=== PATIENT | male | born 1945 | race Caucasian/White ===

== ENCOUNTER 2023-05-09 10:38 | Inpatient (IN) | payer MEDICARE, SELFPAY ==
[2023-05-09] VITALS (34 sets, daily range): BP systolic 109–158; BP diastolic 54–70; PULSE 62–75; RESP 16–28; TEMP 37–38.7; O2SAT 87–96; BMI 48.7
--- NOTE | 2023-05-09 10:46 | XR_ITS ---
The [address] [address] Patient Name: TAURUS GARCIA MRN: [id number] date: 1945 Sex: M Assigned Patient Location: ED.MAIN Current Patient Location: ER Accession/Order Number: [id number] Exam Date: 05/09/2023 11:15 Report Date: 05/09/2023 11:42 At the request of: RUTH BURNS Procedure: XR chest 1V EXAMINATION: XR chest 1V HISTORY: weak, cough shortness of breath COMPARISON: XR chest 10/15/2022, 03/17/2020 FINDINGS: LUNGS: Underexpanded lungs with mild bibasilar opacities. VASCULATURE: No increased pulmonary vasculature. PLEURA: No pneumothorax, effusion, or pleural thickening. CARDIAC: No cardiomegaly or cardiac silhouette abnormality. MEDIASTINUM: No visible mass or adenopathy. BONES: No fracture or visible bone lesion. OTHER: Negative. XR/XR chest 1V IMPRESSION: 1. Mild bibasilar anterior soft tissue artifact versus atelectasis versus infiltrates; similar to prior study. Electronically authenticated by: PRIYA RODRÍGUEZ Date: 05/09/2023 11:42
--- NOTE | 2023-05-09 10:46 | ECG_ITS ---
The 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
--- NOTE | 2023-05-09 10:47 | ED_ITS ---
HPI - Male Genitourinary General Chief complaint: Urogenital-Male Stated complaint: UTI SYMPTOMS Time Seen by Provider: 05/09/23 10:43 History of Present Illness HPI Narrative: 77-year-old male presents for weakness and fever. He thinks he might have a urinary tract infection, he's had one before, about a year ago. He states he can't handle his urine and he was weak. His couldn't get him up to bring him here to get checked and so they called the squad and they brought him. He's a little bit short of breath and has had a slight cough. Symptoms present for the last day or two. Related Data Home Medications Medication Instructions Recorded Confirmed apixaban 5 mg tablet (Eliquis) 5 mg PO Q12H 05/09/23 05/09/23 baclofen 10 mg tablet 10 mg PO Q8H 05/09/23 05/09/23 furosemide 20 mg tablet 20 mg PO DAILY 05/09/23 05/09/23 hydralazine 50 mg tablet 50 mg PO Q12H 05/09/23 05/09/23 lisinopril 20 mg tablet 20 mg PO DAILY 05/09/23 05/09/23 loratadine 10 mg tablet (Claritin) 10 mg PO DAILY 05/09/23 05/09/23 multivitamin 1 tab PO DAILY 05/09/23 05/09/23 nebivolol 10 mg tablet 10 mg PO DAILY 05/09/23 05/09/23 omega-3 fatty acids 1,200 mg PO BID 05/09/23 05/09/23 potassium chloride 10 mEq 10 meq PO DAILY 05/09/23 05/09/23 tablet,extended release(part/cryst) prednisone 10 mg tablet 10 mg PO DAILY 05/09/23 05/09/23 pyridostigmine bromide 60 mg tablet 60 mg PO Q6H 05/09/23 05/09/23 simvastatin 40 mg tablet 40 mg PO DAILY 05/09/23 05/09/23 triamterene 37.5 1 tab PO DAILY 05/09/23 05/09/23 mg-hydrochlorothiazide 25 mg tablet Allergies Allergy/AdvReac Type Severity Reaction Status Date / Time No Known Drug Allergies Allergy Verified 05/09/23 10:49 Review of Systems ROS Narrative A ten point review of systems is negative except as noted above. Exam Narrative Exam Narrative: Nurses note and vital signs reviewed and patient is not hypoxic. General: The patient appears in no apparent distress. Patient is resting com fortably on cart. Skin: Warm, dry, no pallor noted. There is no rash noted. Head: Normocephalic, atraumatic Eye: Normal conjunctiva, no drainage Ears, Nose, Mouth, and Throat: oral mucosa is dry. Nares patent. Cardiovascular: Regular Rate and Rhythm Respiratory: Patient is in no distress, no accessory muscle use, lungs are clear to auscultation, no wheezing, rales or rhonchi Back: non-tender GI: no tenderness to palpation, no masses appreciated. No rebound, guarding, or rigidity noted. Musculoskeletal: The patient has no evidence of calf tenderness, no pitting edema, symmetrical pulses noted bilaterally Neurological: A&O x4, normal speech Psychiatric: Cooperative Constitutional Vital Signs, click to edit/add: Last Vital Signs Pulse 71 05/09/23 10:45 Resp 05/09/23 10:45 BP 142/70 H 05/09/23 10:45 Pulse Ox 91 L 05/09/23 10:45 O2 Del Method Room Air 05/09/23 10:45 O2 Flow Rate 2 05/09/23 10:45 Course Vital Signs Vital signs: Vital Signs Pulse Rate 71 05/09/23 10:45 Respiratory Rate 05/09/23 10:45 Blood Pressure 142/70 H 05/09/23 10:45 Pulse Oximetry 91 L 05/09/23 10:45 Oxygen Delivery Method Room Air 05/09/23 10:45 Oxygen Delivery Flow Rate 2 05/09/23 10:45 Pulse Rate 71 05/09/23 10:45 Respiratory Rate 05/09/23 10:45 Blood Pressure 142/70 H 05/09/23 10:45 Pulse Oximetry 91 L 05/09/23 10:45 Oxygen Delivery Method Room Air 05/09/23 10:45 Oxygen Delivery Flow Rate 2 05/09/23 10:45 MDM - Male Genitourinary MDM Narrative Medical decision making narrative: the patient does not have a urinary tract infection but instead appears to have an infiltrate on his chest x-ray per radiologist. Blood cultures were obtained and then he was given IV antibiotic. He was also given fluids and Tylenol and his temperatures come down and he feels a lot better, not nearly as weak as he was earlier. He'll be admitted. Findings are discussed with the patient and his . I do not suspect sepsis at this point. Differential Diagnosis Differential diagnosis: Likely urinary tract infection and other (pneumonia, viral illness, Covid) Lab Data Attestation: I reviewed the patient's lab results. Imaging Data Chest x-ray: Radiologist's impression: Procedure: XR chest 1V EXAMINATION: XR chest 1V HISTORY: weak, cough shortness of breath COMPARISON: XR chest 10/15/2022, 03/17/2020 FINDINGS: LUNGS: Underexpanded lungs with mild bibasilar opacities. VASCULATURE: No increased pulmonary vasculature. PLEURA: No pneumothorax, effusion, or pleural thickening. CARDIAC: No cardiomegaly or cardiac silhouette abnormality. MEDIASTINUM: No visible mass or adenopathy. BONES: No fracture or visible bone lesion. OTHER: Negative. IMPRESSION: 1. Mild bibasilar anterior soft tissue artifact versus atelectasis versus infiltrates; similar to prior study. Electronically authenticated by: PRIYA RODRÍGUEZ Date: 05/09/2023 11:42 ECG Data Attestation: I personally reviewed and interpreted this ECG as follows: (EKG on my interpretation shows normal sinus rhythm with a rate of 70 and no acute findings.) Discharge Plan Discharge Chief Complaint: Urogenital-Male Time of Disposition Decision: 14:43 Prescriptions / Home Meds: No Action Eliquis 5 mg tablet 5 mg PO Q12H baclofen 10 mg tablet 10 mg PO Q8H hydralazine 50 mg tablet 50 mg PO Q12H triamterene-hydrochlorothiazid 37.5-25 mg tablet 1 tab PO DAILY pyridostigmine bromide 60 mg tablet 60 mg PO Q6H potassium chloride 10 mEq tablet,ER particles/crystals 10 meq PO DAILY nebivolol 10 mg tablet 10 mg PO DAILY prednisone 10 mg tablet 10 mg PO DAILY simvastatin 40 mg tablet 40 mg PO DAILY furosemide 20 mg tablet 20 mg PO DAILY lisinopril 20 mg tablet 20 mg PO DAILY omega-3 fatty acids Capsule 1,200 mg PO BID loratadine [Claritin] 10 mg tablet 10 mg PO DAILY multivitamin Tablet 1 tab PO DAILY
[2023-05-09] MEDS: 0.9 % SODIUM CHLORIDE 1,000 ML 1000 ML IV (11:00)
[2023-05-09] MEDS: ACETAMINOPHEN 325 MG TABLET 650 MG PO (11:20)
[2023-05-09 11:26] LABS: Basophils Absolute Auto 0.1 10^3/uL (0.0-0.1); Basophils Percent Auto 0.6 % (0.2-2.0); Eosinophils Absolute Auto 0.4 10^3/uL (0.0-0.7); Eosinophils Percent Auto 5.3 % (0.9-7.0); Hematocrit 42.4 % (42.0-54.0); Hemoglobin 13.6 g/dL (14.0-18.0); Immature Granulocytes Abs Auto 0.06 10^3/uL (0.00-0.03); Immature Granulocytes Pct Auto 0.7 % (0.0-0.5); Lymphocytes Absolute Auto 0.7 10^3/uL (1.2-3.8); Lymphocytes Percent Auto 8.6 % (20.5-60.0); Mean Corpuscular HGB Conc 32.1 g/dL (29.9-35.2); Mean Corpuscular Hemoglobin 28.1 pg (25.9-34.0); Mean Corpuscular Volume 87.6 fL (80.0-94.0); Mean Platelet Volume 10.6 fL (9.5-13.5); Monocytes Absolute Auto 0.8 10^3/uL (0.3-0.8); Monocytes Percent Auto 10.2 % (1.7-12.0); Neutrophils Absolute Auto 6.1 10^3/uL (1.4-6.5); Neutrophils Percent Auto 74.6 % (43.0-75.0); Platelet Count 148 10^3/uL (150-450); Red Blood Count 4.84 10^6/uL (4.70-6.10); Red Cell Distribution Width 17.7 % (11.0-15.0); White Blood Count 8.2 10^3/uL (4.0-11.0)
[2023-05-09 11:32] LABS: Anion Gap 7.7; BUN Creatinine Ratio 12.4; Calcium 8.6 mg/dL (8.5-10.1); Carbon Dioxide 34.1 mmol/L (21.0-32.0); Chloride 103 mmol/L (98-107); Estimated GFR (African America 48 (>=60); Estimated GFR (Non-African Ame 39 (>=60); Glucose 145 mg/dL (74-106); Potassium 3.8 mmol/L (3.5-5.1); Sodium 141 mmol/L (136-145)
[2023-05-09 11:41] LABS: Lactate/Lactic Acid 2.3 mmol/L (0.4-2.0)
[2023-05-09 11:53] LABS: Bilirubin Urine NEGATIVE (NEGATIVE); Blood Urine MODERATE (NEGATIVE); Clarity Urine CLEAR (CLEAR); Color Urine YELLOW (YELLOW); Glucose Urine UA NEGATIVE (NEGATIVE); Ketones Urine NEGATIVE (NEGATIVE); Leukocyte Esterase Urine NEGATIVE (NEGATIVE); Nitrite Urine NEGATIVE (NEGATIVE); Protein Urine 100 mg/dL (NEG/TRACE); Specific Gravity Urine 1.025 (1.005-1.025); pH Urine 5.5 (5.0-9.0)
[2023-05-09 12:21] LABS: Bacteria Urine NONE SEEN #/HPF (NONE SEEN); Crystals Seen? Seen #/HPF (None Seen); Mucus Urine NONE SEEN (NONE SEEN); Squamous Epithelial Cell Urine NONE SEEN #/LPF (NONE/RARE); WBC Urine 0-2 #/HPF (NONE SEEN)
[2023-05-09 12:22] LABS: Amorphous Sediment Urine MODERATE; Cast Seen? NONE SEEN #/LPF (NONE SEEN); Urine Culture Indicated NO
[2023-05-09] MEDS: CEFTRIAXONE 1,000 MG in 0.9 % SODIUM CHLORIDE 50 ML 100 MG IV (12:41)
[2023-05-09] MEDS: AZITHROMYCIN 500 MG in 0.9 % SODIUM CHLORIDE 250 ML 250 MG IV (13:39)
[2023-05-09 14:08] LABS: SARS-CoV-2 Ag NEGATIVE (NEGATIVE)
[2023-05-09 15:30] LABS: SARS-CoV-2 NAA NOT DETECTED (NOT DETECTE)
[2023-05-09] MEDS: LACTATED RINGER'S SOLUTION 1,000 ML 100 ML IV (16:40)
[2023-05-09 17:34] LABS: Lactate/Lactic Acid 2.3 mmol/L (0.4-2.0)
--- NOTE | 2023-05-09 19:26 | RESP.RT ---
No PRN breathing tx given. PT denies need. No respiratory distress noted.
[2023-05-09] MEDS: BACLOFEN 10 MG TABLET PO (21:02)
[2023-05-09] MEDS: ATORVASTATIN CALCIUM 20 MG TABLET PO (21:02)
[2023-05-09] MEDS: HYDRALAZINE HCL 50 MG TABLET PO (21:02)
[2023-05-09] MEDS: FISH OIL 1,000 MG CAPSULE 1000 MG PO (21:02)
[2023-05-09] MEDS: APIXABAN 5 MG TABLET PO (21:07)
[2023-05-09 21:13] LABS: Lactate/Lactic Acid 1.6 mmol/L (0.4-2.0)
[2023-05-10] VITALS (47 sets, daily range): BP systolic 87–164; BP diastolic 48–72; PULSE 50–79; RESP 14–33; TEMP 36.7–38.4; O2SAT 86–99
[2023-05-10] MEDS: LACTATED RINGER'S SOLUTION 1,000 ML 100 ML IV ×3 (01:32→21:40)
[2023-05-10] MEDS: ACETAMINOPHEN 325 MG TABLET 650 MG PO (05:26)
[2023-05-10] MEDS: BACLOFEN 10 MG TABLET PO (05:26)
[2023-05-10 05:49] LABS: Basophils Percent Auto 0.4 % (0.2-2.0); Eosinophils Absolute Auto 0.3 10^3/uL (0.0-0.7); Eosinophils Percent Auto 3.5 % (0.9-7.0); Hemoglobin 12.7 g/dL (14.0-18.0); Immature Granulocytes Abs Auto 0.03 10^3/uL (0.00-0.03); Immature Granulocytes Pct Auto 0.3 % (0.0-0.5); Lymphocytes Absolute Auto 0.8 10^3/uL (1.2-3.8); Lymphocytes Percent Auto 9.1 % (20.5-60.0); Mean Corpuscular HGB Conc 32.6 g/dL (29.9-35.2); Mean Corpuscular Hemoglobin 28.6 pg (25.9-34.0); Mean Corpuscular Volume 87.8 fL (80.0-94.0); Mean Platelet Volume 11.1 fL (9.5-13.5); Monocytes Absolute Auto 0.8 10^3/uL (0.3-0.8); Monocytes Percent Auto 8.9 % (1.7-12.0); Neutrophils Absolute Auto 7.2 10^3/uL (1.4-6.5); Neutrophils Percent Auto 77.8 % (43.0-75.0); Platelet Count 133 10^3/uL (150-450); Red Blood Count 4.44 10^6/uL (4.70-6.10); Red Cell Distribution Width 17.7 % (11.0-15.0); White Blood Count 9.2 10^3/uL (4.0-11.0)
[2023-05-10 06:00] LABS: Alanine Aminotransferase 35 U/L (16-63); Albumin Globulin Ratio 0.7; Albumin Level 2.6 g/dL (3.4-5.0); Alkaline Phosphatase 62 U/L (46-116); Anion Gap 10.2; Aspartate Amino Transferase 38 U/L (15-37); Calcium 7.8 mg/dL (8.5-10.1); Carbon Dioxide 30.1 mmol/L (21.0-32.0); Chloride 101 mmol/L (98-107); Estimated GFR (African America 58 (>=60); Estimated GFR (Non-African Ame 48 (>=60); Globulin 3.5 g/dL; Glucose 124 mg/dL (74-106); Potassium 3.3 mmol/L (3.5-5.1); Sodium 138 mmol/L (136-145); Total Protein 6.1 g/dL (6.4-8.2)
[2023-05-10] MEDS: HYDRALAZINE HCL 50 MG TABLET PO (08:03)
[2023-05-10] MEDS: POTASSIUM CHLORIDE 10 MEQ ER TABLET 40 MEQ PO (08:03)
[2023-05-10] MEDS: APIXABAN 5 MG TABLET PO (08:05)
[2023-05-10] MEDS: CETIRIZINE HCL 10 MG TABLET PO (08:05)
[2023-05-10] MEDS: FISH OIL 1,000 MG CAPSULE 1000 MG PO (08:05)
[2023-05-10] MEDS: MULTIVITAMIN TABLET 1 TAB PO (08:05)
[2023-05-10] MEDS: AZITHROMYCIN 250 MG TABLET 500 MG PO (08:05)
[2023-05-10] MEDS: NEBIVOLOL HCL 10 MG TABLET PO (08:13)
--- NOTE | 2023-05-10 10:56 | SWNOTE1 ---
SW met with pt to discuss dc needs. Pt does live at home with his . He is independent in the home and does not use any DME. He does not wear home oxygen, but has 02 on at hospital. Pt denies having any needs or concerns about discharge at this time. SW to follow as needed.
--- NOTE | 2023-05-10 12:01 | CM.NOTE ---
Rounds made with Dr. Elizabeth, no discharge for pt today. PT, OT and speech to evaluate pt today. Pt c/o difficulty swallowing this AM with breakfast.
--- NOTE | 2023-05-10 12:21 | P.HP_ITS ---
H&P: HPI History of Present Illness Chief complaint: weakness/fevers and chills Narrative: 77 y o male presents with 3 day hx of feeling weak, cold along with intermittent diaphoresis. He lives independently with his and his brought him as she thought he might have had UTI. Patient denies cough, SOB, abdominal pain, any urinary complaints. In ED, he was noted to be hypoxic with Pulse Ox in 88 and his w/u was c/w Bacterial PNA for which he was admitted for observation overnight. Patient reports feeling better and has more energy but he is still unable to get out of bed w/o needing help. He also is persistently hypoxic and still requiring 2 L O2 via NC. Patient aspirated while eating his breakfast today and was noted to have a very weak cough, and inability to clear upper airway secretions. Review of Systems ROS Status of ROS 10 or more systems reviewed and unremarkable except as noted in history and below [facility] Medical History Surgical History Family History Mother Family history of cancer Grandmother Family history of diabetes mellitus Father Family history of myocardial infarction Social History Within the past year, how often did you have a drink containing alcohol: monthly or less Within the past year, how many standard drinks containing alcohol did you have on a typical day: 1 or 2 Within the past year, how often did you have six or more drinks on one occasion: never Total score: 0 Score interpretation: A score less than 4 is consistent with normal alcohol consumption. 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 Known occupational exposures/hazards: No Highest level of school completed/degree received: high school graduate Are you now , , , , never or living with a partner: In a typical week, how many times do you talk on the telephone with family, friends, or neighbors: once per week How often do you get together with friends or relatives: once per week How often do you attend synagogue or cheondoism services: never Do you belong to any clubs or organizations such as synagogue groups unions, fraternal or athletic groups, or school groups: no Total score: 1 Score interpretation: A score of less than or equal to 1 indicates the most socially isolated. Little interest or pleasure in doing things: not at all Feeling down, depressed, or hopeless: not at all Feel stressed/tense/nervous/anxious/difficulty sleeping: not at all Due to disability, difficulty making decisions: No Do you think of yourself as: straight/heterosexual Gender Identity: male Meds Home Medications and Allergies Home Medications Medication Instructions Recorded Confirmed Type apixaban 5 mg tablet (Eliquis) 5 mg PO Q12H 05/09/23 05/09/23 History baclofen 10 mg tablet 10 mg PO Q8H 05/09/23 05/09/23 History furosemide 20 mg tablet 20 mg PO DAILY 05/09/23 05/09/23 History hydralazine 50 mg tablet 50 mg PO Q12H 05/09/23 05/09/23 History lisinopril 20 mg tablet 20 mg PO DAILY 05/09/23 05/09/23 History loratadine 10 mg tablet (Claritin) 10 mg PO DAILY 05/09/23 05/09/23 History multivitamin 1 tab PO DAILY 05/09/23 05/09/23 History nebivolol 10 mg tablet 10 mg PO DAILY 05/09/23 05/09/23 History omega-3 fatty acids 1,200 mg PO BID 05/09/23 05/09/23 History potassium chloride 10 mEq 10 meq PO DAILY 05/09/23 05/09/23 History tablet,extended release(part/cryst) prednisone 10 mg tablet 10 mg PO DAILY 05/09/23 05/09/23 History pyridostigmine bromide 60 mg tablet 60 mg PO Q6H 05/09/23 05/09/23 History simvastatin 40 mg tablet 40 mg PO DAILY 05/09/23 05/09/23 History triamterene 37.5 1 tab PO DAILY 05/09/23 05/09/23 History mg-hydrochlorothiazide 25 mg tablet Allergies Allergy/AdvReac Type Severity Reaction Status Date / Time No Known Drug Allergies Allergy Verified 05/09/23 10:49 Exam Constitutional Vital Signs, click to edit/add: Last Vital Signs Temp 98.9 F 05/10/23 06:31 Pulse 75 05/10/23 12:08 Resp 14 05/10/23 08:00 BP 134/67 05/10/23 08:03 Pulse Ox 92 L 05/10/23 05:14 O2 Del Method Nasal Cannula 05/10/23 10:45 O2 Flow Rate 2 05/09/23 19:26 Documenting provider has reviewed patient's vital signs: yes Common normals: no apparent distress and oriented x3 Nutritional appearance: obese HENMT Common normals: normocephalic and head/scalp atraumatic Head and scalp: normocephalic and atraumatic Eye Common normals: conjunctivae normal and no scleral icterus Conjunctiva: conjunctiva(e) normal Respiratory Common normals: normal respiratory effort and no use of accessory muscles Other: Weak cough reflex, upper airway secretions. No wheezing or rhonchi noted. Cardio Common normals: regular rate, regular rhythm, S1 normal heart sound and S2 normal heart sound Rate: regular rate Rhythm: regular rhythm Heart sounds: S1 normal and S2 normal GI Common normals: Normal to inspection, nondistended, normoactive bowel sounds present, soft to palpation, non-tender and no hepatosplenomegaly Palpation: soft and no hepatosplenomegaly Extremity Common normals: no clubbing, cyanosis or edema Neuro Common normals: oriented x3, moves all extremities, no focal motor deficits and no sensory deficits noted Psych Psychiatry clinicians, please identify where your Mental Status Exam is documented: Mental Status Exam documented in the separate MSE Common normals: mental status grossly normal, thought process normal, denies hallucinations, denies homicidal ideation and denies suicidal ideation Thought process: normal thought process Results Labs Labs: Short CBC 05/10/23 Range/Units 04:41 WBC 9.2 (4.0-11.0) 10^3/uL Hgb 12.7 L (14.0-18.0) g/dL Hct 39.0 L (42.0-54.0) % Plt Count 133 L (150-450) 10^3/uL BMP 05/10/23 04:41 Sodium 138 Potassium 3.3 L Chloride 101 Carbon Dioxide 30.1 BUN 17.0 Creatinine 1.42 H Glucose 124 H Calcium 7.8 L Liver Function 05/10/23 Range/Units 04:41 Total Bilirubin 1.0 (0.2-1.0) mg/dL AST 38 H (15-37) U/L ALT 35 (16-63) U/L Alkaline Phosphatase 62 (46-116) U/L Albumin 2.6 L (3.4-5.0) g/dL Assessment and Plan Assessment and Plan (1) Pneumonia: Assessment and Plan: Likely aspiration PNA. On IV rocephin/azithromycin F/u blood and sputum cx. Duonebs as needed. Mucinex added to help with congestion Nasotracheal suction as needed Wean off O2 As tolerated. Speech/swallow evaluation ordered. Qualifiers: Pneumonia type: aspiration pneumonia Aspiration pneumonia type: due to gastric secretions (2) Acute respiratory failure with hypoxia: Assessment and Plan: 88% on RA Currently on 2 L via NC. no resp distress. Wean off as tolerated. hypoxia is due to PNA and difficulty clearing his upper airway scecretions. (3) Generalized weakness: Assessment and Plan: due to PNA, dehydration. On IVF. PT/OT eval ordered. (4) Lactic acid acidosis: Assessment and Plan: resolved. (5) Hypokalemia: Assessment and Plan: ordered PO potassium. Monitor. (6) Hypertension: Assessment and Plan: BP is better now. Resume Lisinopril. Hold triamterene/aldactone for now. (7) CKD (chronic kidney disease) stage 3, GFR 30-59 ml/min: Assessment and Plan: Cr at baseline. Monitor. On IVF (8) Myasthenia gravis: Assessment and Plan: Appears to be in mild myasthenia exacerbation due to current illness. Has dysphagia, difficulty clearing secretions and generalized weakness. Will increase Pyridostigmine and start on IV solmuedrol. Needs close monitoring and low threshold for transfer to tertiary care facility with inpatient neurology service. Will consult tele neuro. (9) History of pulmonary embolism: Assessment and Plan: C/w Eliquis. Plan Patient initially admitted for observation but continues to have persistent hypoxia and now has mild myasthenia exacerbation. Changed to inpatient status due to slower than expected recovery, persistent hypoxia, need for inpatient treatment, monitoring for myasthenia exacerbation which could progressively worse and result in resp failure.
[2023-05-10] MEDS: CEFTRIAXONE 1,000 MG in 0.9 % SODIUM CHLORIDE 50 ML 100 MG IV (12:56)
[2023-05-10] MEDS: MIDAZOLAM HCL 5 MG/ML VIAL 4 MG IV (13:39)
[2023-05-10] MEDS: ETOMIDATE 20 MG/10 ML VIAL IVP (13:40)
[2023-05-10] MEDS: SUCCINYLCHOLINE CHLORIDE 20 MG/ML VIAL 100 MG IV (13:42)
--- NOTE | 2023-05-10 13:57 | XR_ITS ---
[address] [address] Patient Name: TAURUS GARCIA MRN: [id number] date: 1945 Sex: M Assigned Patient Location: ICU Current Patient Location: ICU Accession/Order Number: [id number] Exam Date: 05/10/2023 14:15 Report Date: 05/10/2023 14:42 At the request of: GOSIA DUKE Procedure: XR chest 1V EXAMINATION: XR chest 1V HISTORY: s/p intubation for myasthenic crisis COMPARISON: XR chest 05/09/2023 FINDINGS: LUNGS: Endotracheal with tip 3.7 cm above the chong. Underexpanded lungs without convincing infiltrates. VASCULATURE: No increased pulmonary vasculature. PLEURA: No pneumothorax, effusion, or pleural thickening. CARDIAC: No cardiomegaly or cardiac silhouette abnormality. MEDIASTINUM: No visible mass or adenopathy. BONES: No fracture or visible bone lesion. OTHER: Negative. XR/XR chest 1V IMPRESSION: 1. Endotracheal tube in good position. 2. Lungs are mild-moderately expanded, and grossly clear. Electronically authenticated by: PRIYA RODRÍGUEZ Date: 05/10/2023 14:42
--- NOTE | 2023-05-10 14:00 | PC.NURSE ---
1318- Patient arrives via bed to room [address] Woods at bedside. Patient alert and oriented. Total lift to ICU bed. Dr Woods speaks with patient about need for intubation. present. Both in agreement for procedure. 1335- Dr Weaver present. Speaks with patient and . Time out completed. 1339 Versed 4 mg IVP given per Dr Weaver verbal order. Soft wrist restrints applied. 1342 10 mg Etomadate IVP given. Amboo bag at head of bed. Patient orally suctioned for large amount secretions. 1343- 100 mg Succinylcholine IVP given per Dr Weaver order.RT present and bagging patient. SPO2 98% 1344- Etomidate 10 mg IVP repeated per Dr Weaver order. 1345- Patient orally intubated per Dr Weaver with #8 ET tube. 24 @ lip. + color change to CO2 detector. Bilateral breath sounds auscultated.
--- NOTE | 2023-05-10 14:03 | P.CCPRC_ITS ---
Procedures Intubation Pre procedure diagnosis: Myasthenic crisis with acute respiratory failure Post procedure diagnosis: Myasthenic crisis with acute respiratory failure Verification/time out: correct patient, correct procedure and time out performed Name of person performing procedure: Олег Matthews Sedative: other (Etomidate 20mg, Versed 4mg) paralytic: Succinylcholine Mg Given: 100 Laryngoscope: fiber optic video scope ([place] Scope with 3 blade) ET Tube Size: 8 Tube Secured Depth (cm): 24 Tube Secured Location: lips Tube Placement Confirmation: visualized tube passing through cords, equal breath sounds bilaterally and confirmation by capnometry Estimated blood loss (if any): none Intubation Complications: none Patient Tolerated Procedure: well
--- NOTE | 2023-05-10 14:07 | P.CCCN_ITS ---
Critical Care - CN: HPI Date of Service Date of service: 05/10/23 Consult Source: patient and medical record Reason for consult: Acute respiratory failure secondary to myasthenic crisis History: 77yo male presented to [facility] with weakness and dyspnea. Became hypoxic with SpO2 <88%. Clinically appeared to have pneumonia. Weakness progressed with increased shortness of breath. He has a history of myasthenia gravis and clinically appeared to be progressing to a myasthenic crisis. He was assessed by Dr. Elizabeth on the floor; he was concerned about impending respiratory failure. He discussed with the patient the need for transfer to a facility with a higher level service and the potential need for elective intubation. The patient voiced agreement. I saw the patient in the ICU. A NIF was ordered, but the respiratory therapist did not obtain one yet. Observing the patient, he appeared uncomfortable, mildly tachypneic, with increased work of breathing. He had bilateral crackles on exam. The patient voiced he felt weak. I discussed elective intubation with the patient, and the patient voiced he was agreeable to it. I successfully intubated the patient with an 8.0 ETT. As I bagged the patient, I noted he had a prolonged expiratory phase with audible crackles from the endotracheal tube. CXR showed good placement of the ETT. ABG is pending at this time. Review of Systems ROS Narrative Patient was short of breath, weak, cough. No pain. After intubation, unable to obtain ROS. [facility] Active Problems (Updated 05/10/23 @ 12:34 by Shaikh Glenn MD) (Acute) (Acute) (Acute) (Acute) (Acute) Medical History Surgical History Family History Mother Family history of cancer Grandmother Family history of diabetes mellitus Father Family history of myocardial infarction Social History Within the past year, how often did you have a drink containing alcohol: monthly or less Within the past year, how many standard drinks containing alcohol did you have on a typical day: 1 or 2 Within the past year, how often did you have six or more drinks on one occasion: never Total score: 0 Score interpretation: A score less than 4 is consistent with normal alcohol consumption. 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 Known occupational exposures/hazards: No Highest level of school completed/degree received: high school graduate Are you now , , , , never or living with a partner: In a typical week, how many times do you talk on the telephone with family, friends, or neighbors: once per week How often do you get together with friends or relatives: once per week How often do you attend mormonism or muslim services: never Do you belong to any clubs or organizations such as mormonism groups unions, [employer] or athletic groups, or school groups: no Total score: 1 Score interpretation: A score of less than or equal to 1 indicates the most socially isolated. Little interest or pleasure in doing things: not at all Feeling down, depressed, or hopeless: not at all Feel stressed/tense/nervous/anxious/difficulty sleeping: not at all Due to disability, difficulty making decisions: No Do you think of yourself as: straight/heterosexual Gender Identity: male Medications and Allergies Home Medications and Allergies Allergies Allergy/AdvReac Type Severity Reaction Status Date / Time No Known Drug Allergies Allergy Verified 05/09/23 10:49 Home Medications Medication Instructions Recorded Confirmed Type apixaban 5 mg tablet (Eliquis) 5 mg PO Q12H 05/09/23 05/09/23 History baclofen 10 mg tablet 10 mg PO Q8H 05/09/23 05/09/23 History furosemide 20 mg tablet 20 mg PO DAILY 05/09/23 05/09/23 History hydralazine 50 mg tablet 50 mg PO Q12H 05/09/23 05/09/23 History lisinopril 20 mg tablet 20 mg PO DAILY 05/09/23 05/09/23 History loratadine 10 mg tablet (Claritin) 10 mg PO DAILY 05/09/23 05/09/23 History multivitamin 1 tab PO DAILY 05/09/23 05/09/23 History nebivolol 10 mg tablet 10 mg PO DAILY 05/09/23 05/09/23 History omega-3 fatty acids 1,200 mg PO BID 05/09/23 05/09/23 History potassium chloride 10 mEq 10 meq PO DAILY 05/09/23 05/09/23 History tablet,extended release(part/cryst) prednisone 10 mg tablet 10 mg PO DAILY 05/09/23 05/09/23 History pyridostigmine bromide 60 mg tablet 60 mg PO Q6H 05/09/23 05/09/23 History simvastatin 40 mg tablet 40 mg PO DAILY 05/09/23 05/09/23 History triamterene 37.5 1 tab PO DAILY 05/09/23 05/09/23 History mg-hydrochlorothiazide 25 mg tablet Active Medications Active medications: Active Medications Generic Name Dose Route Start Last Admin Trade Name Freq PRN Reason Stop Dose Admin Acetaminophen 650 mg 05/09/23 14:38 05/10/23 05:26 Acetaminophen 325 Mg Tablet PO 650 mg Q4H PRN Administration Pain 1-4 Al Hydrox/Mg Hydrox/Simethicone 30 ml 05/09/23 14:38 Maalox (Mag Hydrox/Aluminum Hyd/Simeth) 30 Ml Oral.Susp PO Q4H PRN Indigestion Albuterol/Ipratropium 3 ml 05/09/23 15:00 Ipratropium/Albuterol Sulfate 3 Ml Ampul.Neb IH Q4H PRN Shortness Of Breath Or Wheezing Albuterol/Ipratropium 3 ml 05/10/23 11:00 Ipratropium/Albuterol Sulfate 3 Ml Ampul.Neb RTQID DORI Apixaban 5 mg 05/09/23 21:00 05/10/23 08:05 Apixaban 5 Mg Tablet PO 5 mg Q12H DORI Administration Atorvastatin Calcium 20 mg 05/09/23 22:00 05/09/23 21:02 Atorvastatin Calcium 20 Mg Tablet PO 20 mg QHS DORI Administration Azithromycin 500 mg 05/10/23 09:00 05/10/23 08:05 Azithromycin 250 Mg Tablet PO 500 mg QD DORI Administration Baclofen 10 mg 05/09/23 22:00 05/10/23 05:26 Baclofen 10 Mg Tablet PO 10 mg TID DORI Administration Benzonatate 100 mg 05/09/23 22:00 Benzonatate 100 Mg Capsule PO TID PRN Cough Cetirizine HCl 10 mg 05/10/23 09:00 05/10/23 08:05 Cetirizine Hcl 10 Mg Tablet PO 10 mg DAILY DORI Administration Docusate Sodium 100 mg 05/09/23 14:38 Docusate Sodium 100 Mg Capsule PO BID PRN Constipation Famotidine 20 mg 05/10/23 14:00 Famotidine/Pf 20 Mg/2 Ml Vial IV Q12H [facility] Fish Oil 1,000 mg 05/09/23 21:00 05/10/23 08:05 Fish Oil 1,000 Mg Capsule PO 1,000 mg BID [facility] Administration Guaifenesin 600 mg 05/10/23 10:00 05/10/23 12:42 Guaifenesin 600 Mg Tab.Er.12h PO Not Given BID [facility] Hydralazine HCl 10 mg 05/09/23 14:38 Hydralazine Hcl 20 Mg/Ml Vial IVP Q4H PRN Hypertension Hydralazine HCl 50 mg 05/09/23 21:00 05/10/23 08:03 Hydralazine Hcl 50 Mg Tablet PO 50 mg BID [facility] Administration Ceftriaxone Sodium 1,000 mg/ 50 mls @ 100 mls/hr 05/10/23 13:00 05/10/23 13:56 Sodium Chloride IV Infused Q24H [facility] Infusion Lactated Ringer's 1,000 mls @ 100 mls/hr 05/10/23 10:00 Lactated Ringers IV .Q10H [facility] Propofol 1,000 mg in 100 mls @ 4.357 mls/hr 05/10/23 14:00 Diprivan IV TITR DORI Protocol 5 MCG/KG/MIN Lisinopril 20 mg 05/10/23 13:00 Lisinopril 20 Mg Tablet PO DAILY [facility] Methylprednisolone Sodium Succinate 40 mg 05/10/23 13:00 Methylprednisolone Sod Succ Pf 40 Mg/Ml Vial IVP Q8H DORI Midazolam HCl 1 mg 05/10/23 13:57 Midazolam Hcl 2 Mg/2 Ml Vial IV Q15M PRN Agitation Midazolam HCl 4 mg 05/10/23 13:57 Midazolam Hcl 5 Mg/Ml Vial IV 05/10/23 13:58 ONCE ONE Morphine Sulfate 2 mg 05/09/23 14:38 Morphine Sulfate 2 Mg/Ml Syringe IV Q4H PRN Severe Pain 8-10 Multivitamins 1 tab 05/10/23 09:00 05/10/23 08:05 Multivitamin Tablet PO 1 tab DAILY DORI Administration Nebivolol 10 mg 05/10/23 09:00 05/10/23 08:13 Nebivolol Hcl 10 Mg Tablet PO 10 mg DAILY DORI Administration Ondansetron HCl 4 mg 05/09/23 14:38 Ondansetron Pf 4 Mg/2 Ml Vial IV Q6H PRN Nausea And Vomiting Polyethylene Glycol 17 gm 05/09/23 14:38 Polyethylene Glycol 3350 17 Gm Powder Packet PO QD PRN Constipation Potassium Chloride 10 meq 05/11/23 09:00 Potassium Chloride 10 Meq Er Tablet PO DAILY DORI Pyridostigmine Jackson 60 mg 05/10/23 16:00 Pyridostigmine Jackson 60 Mg Tablet PO Q6H DORI Succinylcholine Chloride 100 mg 05/10/23 13:57 Succinylcholine Chloride 20 Mg/Ml Vial IV 05/10/23 13:58 ONCE ONE Critical Care I&O Last Vitals Height/Weight/BMI Height, weight, BMI: Height 5 ft 8 in Weight 320 lb 3 oz Body Mass Index 48.7 24 Hour Intake/Output 24h intake & output: Intake & Output 05/08/23 05/09/23 05/10/23 05/11/23 07:59 07:59 07:59 07:59 Intake Total 4823.334 / 4823.334 2740 / 2740 Output Total 550 / 550 Balance 4273.334 / 4273.334 2740 / 2740 Weight 320 lb 3 oz Recent Vital Signs Recent vital signs: Last Vital Signs Temp 98.9 F 05/10/23 06:31 Pulse 75 05/10/23 12:08 Resp 05/10/23 08:00 BP 134/67 05/10/23 08:03 Pulse Ox 89 L 05/10/23 10:00 O2 Del Method Nasal Cannula 05/10/23 10:45 O2 Flow Rate 2 05/09/23 19:26 Exam Constitutional: Vital Signs, click to edit/add: Last Vital Signs Temp 98.9 F 05/10/23 06:31 Pulse 75 05/10/23 12:08 Resp 05/10/23 08:00 BP 134/67 05/10/23 08:03 Pulse Ox 89 L 05/10/23 10:00 O2 Del Method Nasal Cannula 05/10/23 10:45 O2 Flow Rate 2 05/09/23 19:26 General appearance: cooperative Nutritional appearance: obese Orientation/consciousness: Yes awake HENMT: Mouth: oral and palatal mucosa normal Throat: posterior oropharynx normal (Mallampati III) Eye: Common normals: PERRL Neck & C-Spine: Common normals: full ROM Chest: Chest: symmetrical chest wall rise Respiratory: Effort & inspection: tachypneic, respiratory distress and uses accessory muscles Auscultation: crackles Laterality: bilateral throughout; no wheezes Cardio: Rate: regular rate Rhythm: regular rhythm GI: Inspection: central obesity Extremity: General: edema (Trace BLE) Neuro: Sensorium/orientation: awake and alert Psych: Speech: soft Results Labs Labs: Short CBC 05/10/23 Range/Units 04:41 WBC 9.2 (4.0-11.0) 10^3/uL Hgb 12.7 L (14.0-18.0) g/dL Hct 39.0 L (42.0-54.0) % Plt Count 133 L (150-450) 10^3/uL BMP 05/10/23 04:41 Sodium 138 Potassium 3.3 L Chloride 101 Carbon Dioxide 30.1 BUN 17.0 Creatinine 1.42 H Glucose 124 H Calcium 7.8 L Liver Function 05/10/23 Range/Units 04:41 Total Bilirubin 1.0 (0.2-1.0) mg/dL AST 38 H (15-37) U/L ALT 35 (16-63) U/L Alkaline Phosphatase 62 (46-116) U/L Albumin 2.6 L (3.4-5.0) g/dL Pulse Oximetry SpO2 results: SpO2 >98% during intubation Imaging Chest x-ray: Attestation: I have reviewed the pertinent imaging results. Assessment and Plan Assessment and Plan (1) Acute respiratory failure with hypoxia: Assessment and Plan: 1. Acute hypoxic respiratory failure secondary to myasthenic crisis. Patient developed hypoxic respiratory failure on admission. NIF was not available, but clinically his respiratory status is deteriorating. Decision made for elective intubation. If he were not intubated at that time, he would eventually require an emergent intubation based on the rapid decline in his respiratory status. Patient was successfully intubated with an 8.0 ETT via GlideScope. CXR confirms good placement. Awaiting ABG, monitor for hypercapnia with adjustments made to the ventilator as necessary. This is the first time he has had a crisis where he required intubation. Of note, his last PFT was 04/09/2020 which was completely unremarkable - RV 101%, TLC 85%, and DLCO 91%. 2. Myasthenia gravis with myasthenic crisis. Patient electively intubated as above. Will need transferred to a tertiary care center. 3. Community acquired pneumonia. Present on admission. Presumptive a consequence of worsening myasthenia. Awaiting C&S. Continue antibiotics. Avoid aminoglycosides, etc. which can further weaken muscles. 4. JAMISON. Patient has CPAP @ home. 5. History of pulmonary embolism 09/22/2019. He was on prednisone for myasthenia during this time. He developed right heart strain during that time, but RVSP was only 25mmHg. He did not receive tPA. 6. Morbid obesity. BMI 48.7. Inducing a restrictive pulmonary physiology. Attending Attestation - Gen Attending Attestation Attestation: examined this patient, performed the garcia elements of E&M, reviewed pertinent EHR data, discussed management plan with nursing and discussed management plan with patient Attending Addendum Addendum details: 35 minutes critical care time, excluding time spent for intubation.
[2023-05-10] MEDS: PROPOFOL 1,000 MG/100 ML VIAL 60.999 MG IV (14:12)
[2023-05-10] MEDS: FAMOTIDINE/PF 20 MG/2 ML VIAL IV ×2 (14:12→21:44)
[2023-05-10] MEDS: METHYLPREDNISOLONE SOD SUCC PF 40 MG/ML VIAL IVP ×2 (14:12→21:44)
[2023-05-10] MEDS: IPRATROPIUM/ALBUTEROL SULFATE 3 ML AMPUL.NEB IH ×2 (14:24→20:00)
[2023-05-10] MEDS: PROPOFOL 1,000 MG/100 ML VIAL 43.571 MG IV ×4 (15:19→21:38)
[2023-05-10 16:15] LABS: ABG PCO2 35.9 mmHg (35.0-45.0); HCO3 ABG 28.4 mmol/L (22.0-26.0)
[2023-05-10 16:16] LABS: Allen Test POS (POSITIVE); Base Excess ABG 5.3 mmol/L (-2.0-2.0); Fractionated Inspired Oxygen 50 %; O2 Mode VENT; Puncture Site LEFT RADIAL; Rate 16; Tidal Volume 500; Vent Mode A/C
[2023-05-10 16:17] LABS: pH ABG 7.507 (7.350-7.450)
--- NOTE | 2023-05-10 16:38 | PM.DS1 ---
DS: Providers Provider Date of admission: 05/10/23 15:35 Primary care physician: KOMAL SCHAFFER Consults: 05/09/23 14:42 Occupational Therapy Eval and Treat Routine Reason for consultation: generalized weakness Physical Therapy Eval and Treat Routine Reason for consultation: generalized weakness 05/10/23 09:57 Speech Therapy Eval and Treat Routine Reason for consultation: dysphgia Has provider been notified: No 05/10/23 12:42 Consult to TeleNeurology Routine Consulting Provider: Reason for consultation: myasthenia gravis exacerbation Has provider been notified: Yes 05/10/23 13:22 Consult to Pulmonology Routine Consulting Provider: Олег Weaver Reason for consultation: Respiratory failure Has provider been notified: Yes Attending physician on discharge: Shaikh Glenn Discharging clinician: Shaikh Glenn Anticipated date of discharge: 05/10/23 DS: Diagnosis Discharge Diagnosis (1) Acute respiratory failure with hypoxia: Assessment and plan: Initially presented with borderline hypoxia - Pulse ox 88 on RA and was doing well on supplemental O2. Patient then acutely worsened with increased work of breathing and was intubated and put on mechanical ventilator. Patient being transferred to [facility] for treatment of Myasthenia Crisis as we do not have in house neurologist and ability to give him IVIG or plasmaphresis. (2) Myasthenia gravis: Assessment and plan: Developed myasthenic crisis resulting in acute resp failure for which he required endotracheal intubation and was put on mechanical ventilator. Being transferred to [facility] for Neurology eval and treatment with IVIG. (3) Generalized weakness: Assessment and plan: Due to Myasthenic crisis. Being transferred to [facility]. (4) Lactic acid acidosis: Assessment and plan: Resolved. (5) CKD (chronic kidney disease) stage 3, GFR 30-59 ml/min: Assessment and plan: Cr at baseline. Monitor. (6) History of pulmonary embolism: Assessment and plan: C.w Eliquis. (7) Hypertension: Assessment and plan: Stable. C/w lisinopril, nebivilol (8) Pneumonia: Assessment and plan: Likely aspiration PNA. On Rocephin/Azithromycin Qualifiers: Pneumonia type: aspiration pneumonia Aspiration pneumonia type: due to gastric secretions DS: Summary Hospital Course Hospital Course: Patient presents with generalized weakness, feeling hot and cold x 3 days. Initial work up revealed acute resp failure with hpyoxia sec to PNA for which patient was admitted for IV abx. Next morning -- noted to have dysphagia, inability to clear secretions, with progressive decline in respiratory status/effort for which he was intubated and put on mechanical ventilator. His resp failure is likely due to Myasthenic crisis for which patient will be transferred to [facility] for IVIG and neurological evaluation. Status at Discharge Functional status at discharge: bed bound Overall status at discharge: patient is not back to baseline Time Spent with Patient Time attestation: Total time spent providing and/or coordinating discharge services: Time spent: greater than 30 minutes Exam Constitutional Vital Signs, click to edit/add: Last Vital Signs Temp 99.7 F 05/10/23 16:12 Pulse 63 05/10/23 16:12 Resp 20 05/10/23 16:12 BP 125/67 05/10/23 16:12 Pulse Ox 97 05/10/23 16:12 O2 Del Method Mechanical Ventilator 05/10/23 16:12 O2 Flow Rate 2 05/09/23 19:26 FiO2 50 05/10/23 16:12 DS: Data Data Completed and Pending Labs on day of discharge: Labs from last 24 hours 05/10/23 05/10/23 05/09/23 16:00 04:41 20:17 WBC 9.2 RBC 4.44 L Hgb 12.7 L Hct 39.0 L MCV 87.8 MCH 28.6 MCHC 32.6 RDW 17.7 H Plt Count 133 L MPV 11.1 Neut % (Auto) 77.8 H Lymph % (Auto) 9.1 L Hardy % (Auto) 8.9 Eos % (Auto) 3.5 Baso % (Auto) 0.4 Neut # (Auto) 7.2 H Lymph # (Auto) 0.8 L Hardy # (Auto) 0.8 Eos # (Auto) 0.3 Baso # (Auto) 0.0 Abs Immat Gran (auto) 0.03 Imm/Tot Granulo (auto) 0.3 Puncture Site Left radial ABG pH 7.507 H* ABG pCO2 35.9 ABG pO2 110.0 H ABG HCO3 28.4 H ABG O2 Saturation 98.0 ABG Base Excess 5.3 H Gabirele Test Pos Vent Mode A/c FiO2 50 Tidal Volume 500 Sodium 138 Potassium 3.3 L Chloride 101 Carbon Dioxide 30.1 Anion Gap 10.2 BUN 17.0 Creatinine 1.42 H Est GFR ( Amer) 58 L Est GFR (Non-Af Amer) 48 L BUN/Creatinine Ratio 12.0 Glucose 124 H Lactate 1.6 Calcium 7.8 L Total Bilirubin 1.0 AST 38 H ALT 35 Alkaline Phosphatase 62 Total Protein 6.1 L Albumin 2.6 L Globulin 3.5 Albumin/Globulin Ratio 0.7 05/09/23 17:09 WBC RBC Hgb Hct MCV MCH MCHC RDW Plt Count MPV Neut % (Auto) Lymph % (Auto) Hardy % (Auto) Eos % (Auto) Baso % (Auto) Neut # (Auto) Lymph # (Auto) Hardy # (Auto) Eos # (Auto) Baso # (Auto) Abs Immat Gran (auto) Imm/Tot Granulo (auto) Puncture Site ABG pH ABG pCO2 ABG pO2 ABG HCO3 ABG O2 Saturation ABG Base Excess Gabriele Test Vent Mode FiO2 Tidal Volume Sodium Potassium Chloride Carbon Dioxide Anion Gap BUN Creatinine Est GFR ( Amer) Est GFR (Non-Af Amer) BUN/Creatinine Ratio Glucose Lactate 2.3 H* Calcium Total Bilirubin AST ALT Alkaline Phosphatase Total Protein Albumin Globulin Albumin/Globulin Ratio Discharge Plan Discharge Disposition: Xfer Acute Care Hospital Condition: Good
[2023-05-10] MEDS: ACETAMINOPHEN 650 MG RECTAL SUPPOSITORY PR (18:11)
== END 2023-05-10 22:38 | disposition short-term general hospital (02) | DRG 56 ==
LOC: ER 14:43 → MS 05-10 08:26 → ICU 05-10 13:18
PROVIDERS: Internal Medicine; Admitting Provider Internal Medicine; Emergency Provider Emergency Medicine; PCP Internal Medicine; Visit Provider Internal Medicine
DX: G70.01 Myasthenia gravis with (acute) exacerbation (principal); J69.0 Pneumonitis due to inhalation of food and vomit; J96.01 Acute respiratory failure with hypoxia; E87.20 Acidosis, unspecified; Z68.42 Body mass index [BMI] 45.0-49.9, adult; R53.1 Weakness; E87.6 Hypokalemia; I12.9 Hypertensive chronic kidney disease with stage 1 through stage 4 chronic kidney disease, or unspecified chronic kidney disease; N18.30 Chronic kidney disease, stage 3 unspecified; Z86.711 Personal history of pulmonary embolism; Z79.01 Long term (current) use of anticoagulants; Z79.899 Other long term (current) drug therapy; E66.01 Morbid (severe) obesity due to excess calories; Z20.822 Contact with and (suspected) exposure to COVID-19
CPT/HCPCS: 31500; 31720; 36415; 36600; 51702; 51798; 71045; 80048; 80053; 81001; 82805; 83605; 85025; 87040; 87070; 87635; 87811; 93005; 94002; 94640; 94667; 94761; 96365; 96366; 96367; 96368; 96375; 96376; 97163; 99285; G0378; J0456; J2920; U0003

== ENCOUNTER 2023-12-18 11:50 | Outpatient (OUT) | payer MEDICARE, SELFPAY ==
--- NOTE | 2023-12-18 13:04 | P.CN_ITS ---
Consult Note: HPI Data of Consult Patient: new to practice Consult date: 12/18/23 Requesting Physician: Jadyn Wyman MD Primary Care Provider: KOMAL SCHAFFER Consult Narrative Reason for consult: low back, right leg pain Narrative: 78yom who presents for evaluation. worsening low back, right leg pain over malini ral months. longstanding problem, no acute event. lumbar XR shows multilevel degeneration, though no advanced imaging availabe. continues in provider directed home exercise course >6 weeks, with minimal benefit. has completed PT. uses norco sparingly. on apixaban, so no nsaids. cc:: CC: Jadyn Wyman MD Review of Systems ROS Status of ROS 10 or more systems reviewed and unremark able except as noted in history and below PFSH PFS Medical History Surgical History Previous back surgery ?Z98.890 - Other specified postprocedural states (ICD-10) History of appendectomy ?Z90.49 - Acquired absence of other specified parts of digestive tract (ICD- 10) Family History Mother Family history of cancer Grandmother Family history of diabetes mellitus Father Family history of myocardial infarction Social History Within the past year, how often did you have a drink containing alcohol: monthly or less Within the past year, how many standard drinks containing alcohol did you have on a typical day: 1 or 2 Within the past year, how often did you have six or more drinks on one occasion: never Total score: 0 Score interpretation: A score less than 4 is consistent with normal alcohol consumption. 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 Known occupational exposures/hazards: No Highest level of school completed/degree received: high school graduate Are you now , , , , never or living with a partner: In a typical week, how many times do you talk on the telephone with family, friends, or neighbors: once per week How often do you get together with friends or relatives: once per week How often do you attend evangelical or alevism services: never Do you belong to any clubs or organizations such as evangelical groups unions, fraternal or athletic groups, or school groups: no Total score: 1 Score interpretation: A score of less than or equal to 1 indicates the most socially isolated. Little interest or pleasure in doing things: not at all Feeling down, depressed, or hopeless: not at all Feel stressed/tense/nervous/anxious/difficulty sleeping: not at all Due to disability, difficulty making decisions: No Do you think of yourself as: straight/heterosexual Gender Identity: male Meds Home Medications and Allergies Home Medications ?Medication ?Instructions ?Recorded ?Confirmed ?Type apixaban 5 mg tablet (Eliquis) 5 mg PO Q12H 05/09/23 05/09/23 History baclofen 10 mg tablet 10 mg PO Q8H 05/09/23 05/09/23 History furosemide 20 mg tablet 20 mg PO DAILY 05/09/23 05/09/23 History hydralazine 50 mg tablet 50 mg PO Q12H 05/09/23 05/09/23 History lisinopril 20 mg tablet 20 mg PO DAILY 05/09/23 05/09/23 History loratadine 10 mg tablet (Claritin) 10 mg PO DAILY 05/09/23 05/09/23 History multivitamin 1 tab PO DAILY 05/09/23 05/09/23 History nebivolol 10 mg tablet 10 mg PO DAILY 05/09/23 05/09/23 History omega-3 fatty acids 1,200 mg PO BID 05/09/23 05/09/23 History potassium chloride 10 mEq 10 meq PO DAILY 05/09/23 05/09/23 History tablet,extended release(part/cryst) prednisone 10 mg tablet 10 mg PO DAILY 05/09/23 05/09/23 History pyridostigmine bromide 60 mg tablet 60 mg PO Q6H 05/09/23 05/09/23 History simvastatin 40 mg tablet 40 mg PO DAILY 05/09/23 05/09/23 History triamterene 37.5 1 tab PO DAILY 05/09/23 05/09/23 History mg-hydrochlorothiazide 25 mg tablet gabapentin 300 mg capsule 300 mg PO DAILY 12/18/23 12/18/23 History Allergies Allergy/AdvReac Type Severity Reaction Status Date / Time No Known Drug Allergies Allergy Verified 05/09/23 10:49 Exam Narrative Exam Narrative: Psych-alert and oriented x 3. Attentive and appropriate, constitutionally normal, displays normal mood and affect per situation. There are no obvious deficits in memory, reasoning, or intellect.? Skin-no obvious rashes, bruising, erythema noted to the patient's area of pain.? Extremities- extremities are warm with minimal edema and palpable pulses. Lumbar-tenderness to palpation noted in the lumbar spine and paraspinal musculature. Pain is elicited with flexion, extension, and lateral rotation of the lumbar spine. Range of motion is diminished with these motions. Facet loading maneuvers are positive.? Strength-noted to be unremarkable with the exception of decreased strength rated at 4 out of 5 in right quadriceps femoris, anterior tibialis. Sensory-no notable sensory deficits in the bilateral lower extremities to touch or pinprick in all dermatomal distributions with the exception to decreased sensation to the right L3, 4 dermatomal distribution Coordination remains intact.? Gait remains non-antalgic. Assessment and Plan Assessment and Plan (1) Lumbar stenosis with neurogenic claudication: Plan 78yom who presents for evaluation. failed conservative measures, as noted. imaging reviewed. given smyptoms and exam findings, will have him undergo lumbar mri without contrast and xr sacrum for further information. he is in agreement. meds reviewed, no changes. follow up after imaging.
== END 2023-12-18 11:51 | disposition home or self-care (01) ==
LOC: PM 11:51
PROVIDERS: PCP Internal Medicine; Visit Provider Anesthesiology
DX: M48.062 Spinal stenosis, lumbar region with neurogenic claudication (principal)
CPT/HCPCS: G0463

== ENCOUNTER 2023-12-22 12:20 | Outpatient (OUT) | payer MEDICARE, SELFPAY ==
--- NOTE | 2023-12-22 | MR_ITS ---
[address] [address] Patient Name: TAURUS GARCIA MRN: [id number] date: 1945 Sex: M Assigned Patient Location: [facility] Current Patient Location: [facility] Accession/Order Number: [id number] Exam Date: 12/22/2023 12:40 Report Date: 12/22/2023 14:22 At the request of: FRANCE QUINTANILLARACEDRIC Procedure: MR lumbar spine wo con EXAMINATION: MR lumbar spine wo con HISTORY: Lumbar stenosis, sacroilitis COMPARISON: No relevant comparison available. TECHNIQUE: A variety of imaging planes and parameters were utilized for visualization of suspected pathology. FINDINGS: Limited evaluation secondary to patient body habitus resulting in artifact despite multiple sequences being repeated. For the purposes of numbering, sagittal T2 image # 9 extends from the T11 vertebral body superiorly to the S2-S3 level inferiorly. PARASPINAL AREA: Normal with no visible mass. BONES: 5 mm anterolisthesis of L4 on L5. 9 mm anterolisthesis of L5 on S1. Signal abnormality consistent with bone edema lower half of the L3 and upper half of the L4 vertebral bodies . 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 DISC LEVELS: 12-L1: Moderate degenerative disc disease is present without visible neural impingement. L1-L2: Asymmetric disc space narrowing with collapse on the right and associated endplate sclerosis. Moderate diffuse disc/osteophyte complex. Ligamentum flavum hypertrophy and facet osteoarthropathy. Marked trefoil narrowing of the central canal. Severe right and mild left foraminal stenosis L2-L3: Asymmetric disc space narrowing with collapse on the right and associated endplate sclerosis. Moderate diffuse disc/osteophyte complex. Moderate ligamentum flavum hypertrophy and facet osteoarthropathy. Moderate trefoil narrowing of the central canal. Moderate right and no left foraminal stenosis L3-L4: Disc space narrowing with disc desiccation. Mild diffuse disc/osteophyte complex. Severe ligamentum flavum hypertrophy. Facet osteoarthropathy. Severe narrowing of the central canal axial image #13. Moderate right and mild left foraminal stenosis L4-L5: 5 mm anterolisthesis of L4 and L5. Moderate disc space narrowing and desiccation left greater than right with endplate sclerosis. Moderate diffuse bulge/pseudobulge. Severe ligamentum flavum hypertrophy. Severe narrowing of the central canal. Mild right and severe left foraminal stenosis L5-S1: Up to 9 mm of anterolisthesis of L5 on S1, left greater than right with resultant pseudobulge. Ligamentum flavum hypertrophy and facet osteoarthropathy. No central or right foraminal stenosis. Moderate to severe left foraminal stenosis MR/MR lumbar spine wo con IMPRESSION: Extensive degenerative changes with central and foraminal stenosis at multiple levels as detailed above Electronically authenticated by: JORDAN RUTLEDGE Date: 12/22/2023 14:22
--- NOTE | 2023-12-22 | XR_ITS ---
The [address] [address] Patient Name: TAURUS GARCIA MRN: [id number] date: 1945 Sex: M Assigned Patient Location: RAD Current Patient Location: [facility] Accession/Order Number: [id number] Exam Date: 12/22/2023 13:20 Report Date: 12/22/2023 14:30 At the request of: ANDRIUS GIEDRAITIS Procedure: XR sacrum coccyx min 2V PROCEDURE: XR sacrum coccyx min 2V COMPARISON: None. HISTORY: sacroilitis FINDINGS: SACRUM: No fracture, disruption of the sacral ala line, or cortical irregularity. COCCYX: No fracture or suspicious alignment. SOFT TISSUES: No widening of the sacroiliac joints. No radiopaque foreign body. OTHER: Degenerative changes of the visualized lumbar spine. Mild bilateral hip osteoarthropathy XR/XR sacrum coccyx min 2V IMPRESSION: Degenerative changes of the lumbar spine Electronically authenticated by: JORDAN RUTLEDGE Date: 12/22/2023 14:30
== END 2023-12-22 12:21 | disposition home or self-care (01) ==
LOC: RAD 12:21
PROVIDERS: PCP Internal Medicine; Visit Provider Anesthesiology
DX: M48.062 Spinal stenosis, lumbar region with neurogenic claudication (principal); M46.1 Sacroiliitis, not elsewhere classified; M51.36 Other intervertebral disc degeneration, lumbar region
CPT/HCPCS: 72148; 72220

== ENCOUNTER 2023-12-28 14:17 | Outpatient (OUT) | payer MEDICARE, SELFPAY ==
--- NOTE | 2023-12-28 14:59 | P.CN_ITS ---
Consult Note: HPI Data of Consult Patient: known to practice within the last 3 years Consult date: 12/18/23 Requesting Physician: Kimberly Wright NP Primary Care Provider: KOMAL SCHAFFER Consult Narrative Reason for consult: low back, right leg pain Narrative: 78yom who presents for evaluation. worsening low back, right leg pain over several months. longstanding problem, no acute event. lumbar XR shows multilevel degeneration, recent MRI shows moderate to severe degenerative changes and stenosis as noted below. continues in provider directed home exercise course >6 weeks, with minimal benefit. has completed PT. uses norco daily as needed with benefit. on apixaban, so no nsaids. Patient here for lumbar MRI and pelvis xray review. cc:: CC: Kimberly Wright NP Review of Systems ROS Status of ROS 10 or more systems reviewed and unremark able except as noted in history and below Musculoskeletal Reports: back pain and joint pain PFSH PFSH Medical History Myasthenia gravis ?G70.00 - Myasthenia gravis without (acute) exacerbation (ICD-10) CKD (chronic kidney disease) stage 3, GFR 30-59 ml/min ?N18.30 - Chronic kidney disease, stage 3 unspecified (ICD-10) History of pulmonary embolism ?Z86.711 - Personal history of pulmonary embolism (ICD-10) Hypertension ?I10 - Essential (primary) hypertension (ICD-10) Bladder cancer ?C67.9 - Malignant neoplasm of bladder, unspecified (ICD-10) Pulmonary embolism ?I26.99 - Other pulmonary embolism without acute cor pulmonale (ICD-10) Surgical History Previous back surgery ?Z98.890 - Other specified postprocedural states (ICD-10) History of appendectomy ?Z90.49 - Acquired absence of other specified parts of digestive tract (ICD- 10) Family History Mother Family history of cancer Grandmother Family history of diabetes mellitus Father Family history of myocardial infarction Social History Within the past year, how often did you have a drink containing alcohol: monthly or less Within the past year, how many standard drinks containing alcohol did you have on a typical day: 1 or 2 Within the past year, how often did you have six or more drinks on one occasion: never Total score: 0 Score interpretation: A score less than 4 is consistent with normal alcohol consumption. 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 Known occupational exposures/hazards: No Highest level of school completed/degree received: high school graduate Are you now , , , , never or living with a partner: In a typical week, how many times do you talk on the telephone with family, friends, or neighbors: once per week How often do you get together with friends or relatives: once per week How often do you attend synagogue or restorationism services: never Do you belong to any clubs or organizations such as synagogue groups unions, [employer] or athletic groups, or school groups: no Total score: 1 Score interpretation: A score of less than or equal to 1 indicates the most socially isolated. Little interest or pleasure in doing things: not at all Feeling down, depressed, or hopeless: not at all Feel stressed/tense/nervous/anxious/difficulty sleeping: not at all Due to disability, difficulty making decisions: No Do you think of yourself as: straight/heterosexual Gender Identity: male Meds Home Medications and Allergies Home Medications ?Medication ?Instructions ?Recorded ?Confirmed ?Type apixaban 5 mg tablet (Eliquis) 5 mg PO Q12H 05/09/23 05/09/23 History baclofen 10 mg tablet 10 mg PO Q8H 05/09/23 05/09/23 History furosemide 20 mg tablet 20 mg PO DAILY 05/09/23 05/09/23 History hydralazine 50 mg tablet 50 mg PO Q12H 05/09/23 05/09/23 History lisinopril 20 mg tablet 20 mg PO DAILY 05/09/23 05/09/23 History loratadine 10 mg tablet (Claritin) 10 mg PO DAILY 05/09/23 05/09/23 History multivitamin 1 tab PO DAILY 05/09/23 05/09/23 History nebivolol 10 mg tablet 10 mg PO DAILY 05/09/23 05/09/23 History omega-3 fatty acids 1,200 mg PO BID 05/09/23 05/09/23 History potassium chloride 10 mEq 10 meq PO DAILY 05/09/23 05/09/23 History tablet,extended release(part/cryst) prednisone 10 mg tablet 10 mg PO DAILY 05/09/23 05/09/23 History pyridostigmine bromide 60 mg tablet 60 mg PO Q6H 05/09/23 05/09/23 History simvastatin 40 mg tablet 40 mg PO DAILY 05/09/23 05/09/23 History triamterene 37.5 1 tab PO DAILY 05/09/23 05/09/23 History mg-hydrochlorothiazide 25 mg tablet gabapentin 300 mg capsule 300 mg PO DAILY 12/18/23 12/18/23 History Allergies Allergy/AdvReac Type Severity Reaction Status Date / Time No Known Drug Allergies Allergy Verified 05/09/23 10:49 Exam Narrative Exam Narrative: Psych-alert and oriented x 3. Attentive and appropriate, constitutionally normal, displays normal mood and affect per situation. There are no obvious deficits in memory, reasoning, or intellect.? Skin-no obvious rashes, bruising, erythema noted to the patient's area of pain.? Extremities- extremities are warm with minimal edema and palpable pulses. Lumbar-tenderness to palpation noted in the lumbar spine and paraspinal musculature. Pain is elicited with flexion, extension, and lateral rotation of the lumbar spine. Range of motion is diminished with these motions. Facet loading maneuvers are positive.? right SIJ positive jorge(patricks), gaenslens, thigh thrust, compression test Strength-noted to be unremarkable with the exception of decreased strength rated at 4 out of 5 in right quadriceps femoris, anterior tibialis. Sensory-no notable sensory deficits in the bilateral lower extremities to touch or pinprick in all dermatomal distributions with the exception to decreased sensation to the right L3, 4 dermatomal distribution Coordination remains intact.? Gait remains non-antalgic. Results Imaging Lumbar MRI: Attestation: I have reviewed the pertinent imaging results. Radiologist's impression: PARASPINAL AREA: Normal with no visible mass. BONES: 5 mm anterolisthesis of L4 on L5. 9 mm anterolisthesis of L5 on S1. Signal abnormality consistent with bone edema lower half of the L3 and upper half of the L4 vertebral bodies . 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 DISC LEVELS: 12-L1: Moderate degenerative disc disease is present without visible neural impingement. L1-L2: Asymmetric disc space narrowing with collapse on the right and associated endplate sclerosis. Moderate diffuse disc/osteophyte complex. Ligamentum flavum hypertrophy and facet osteoarthropathy. Marked trefoil narrowing of the central canal. Severe right and mild left foraminal stenosis L2-L3: Asymmetric disc space narrowing with collapse on the right and associated endplate sclerosis. Moderate diffuse disc/osteophyte complex. Moderate ligamentum flavum hypertrophy and facet osteoarthropathy. Moderate trefoil narrowing of the central canal. Moderate right and no left foraminal stenosis L3-L4: Disc space narrowing with disc desiccation. Mild diffuse disc/osteophyte complex. Severe ligamentum flavum hypertrophy. Facet osteoarthropathy. Severe narrowing of the central canal axial image #13. Moderate right and mild left foraminal stenosis L4-L5: 5 mm anterolisthesis of L4 and L5. Moderate disc space narrowing and desiccation left greater than right with endplate sclerosis. Moderate diffuse bulge/pseudobulge. Severe ligamentum flavum hypertrophy. Severe narrowing of the central canal. Mild right and severe left foraminal stenosis L5-S1: Up to 9 mm of anterolisthesis of L5 on S1, left greater than right with resultant pseudobulge. Ligamentum flavum hypertrophy and facet osteoarthropathy. No central or right foraminal stenosis. Moderate to severe left foraminal stenosis Assessment and Plan Assessment and Plan (1) Lumbar stenosis with neurogenic claudication: (2) Sacroiliitis: Plan imaging reviewed, as noted above failed to respond to PT/EHP and conservative medications right L3-4 L4-5 TFESI under fluoroscopy right SIJ injection under fluoroscopy risks vs benefits reviewed, all questions answered UDS today [place] 5-325mg daily PRN moderate to severe pain narcan discussed and prescribed continue gabapentin 300mg QD through PCP and baclofen 10mg HS PRN f/u 2 weeks after completion of injections
== END 2023-12-28 14:18 | disposition home or self-care (01) ==
PROVIDERS: PCP Internal Medicine; Visit Provider Nurse Practitioner
DX: M48.062 Spinal stenosis, lumbar region with neurogenic claudication (principal); M46.1 Sacroiliitis, not elsewhere classified
CPT/HCPCS: G0463

== ENCOUNTER 2024-01-08 07:53 | Day surgery (SDC) | payer MEDICARE, SELFPAY ==
[2024-01-08 08:25] VITALS: BP 140/78; PULSE 58; TEMP 36.8; O2SAT 94
[2024-01-08] MEDS: DEXAMETHASONE SOD PHOS 10 MG/ML VIAL INJ (08:57)
[2024-01-08] MEDS: 0.9 % SODIUM CHLORIDE 10 ML SYRINGE - SALINE FLUSH INJ (08:57)
[2024-01-08] MEDS: LIDOCAINE HCL 2% PF 100 MG/5 ML VIAL INJ (08:58)
[2024-01-08] MEDS: IOHEXOL 240 MG/ML - 10 ML VIAL INJ (08:58)
[2024-01-08] MEDS: BUPIVACAINE HCL 0.25% PF 25 MG/10 ML VIAL INJ (08:58)
[2024-01-08 09:01] VITALS: BP 165/71; BP 178/79; PULSE 61; PULSE 63; O2SAT 92; O2SAT 93
--- NOTE | 2024-01-08 09:01 | P.ON_ITS ---
Date of procedure: 01/08/24 Pre-op diagnosis: Lumbar stenosis with neurogenic claudication Post-op diagnosis: same as pre-op Procedure: Procedure: Right L3-4, L4-5 transforaminal epidural steroid injection Medications: Bupivacaine 0.25% 2cc, lidocaine 2% 1cc, kenalog 80mg The patient was seen and examined in the preoperative holding area.? Informed consent was obtained and placed on the chart.? Patient was brought to the medical procedure unit and placed in the prone position where a timeout was completed verifying the correct patient, procedure site, position, and planned special equipment using sterile aseptic technique.? Under direct fluoroscopic visualization a 25-gauge Quincke tipped spinal needle was advanced to the designated neural foramen where contrast dye was injected to show adequate spread.? The needle was inserted at level right L3-4. There was no evidence of vascular or adverse uptake.? Epidural spread was appreciated.? The above- mentioned injectate was then placed in a 1.5 mL aliquot preceded by negative aspiration.? The needle was removed. The needle was inserted and the procedure repeated at level right L4-5.? The surgery site was covered.? Patient was taken to the postprocedural recovery area and monitored for an appropriate length of time before found suitable for discharge in the accompaniment of a responsible adult. Anesthesia: Local Surgeon: Jadyn Wyman Pathology: none sent Condition: stable Disposition: no change
== END 2024-01-08 09:05 | disposition home or self-care (01) ==
PROVIDERS: PCP Internal Medicine; Visit Provider Anesthesiology
DX: M48.062 Spinal stenosis, lumbar region with neurogenic claudication (principal)
CPT/HCPCS: 64483; 64484; J1100; Q9966

== ENCOUNTER 2024-01-22 10:21 | Day surgery (SDC) | payer MEDICARE, SELFPAY ==
[2024-01-22 10:54] VITALS: BP 127/74; PULSE 61; TEMP 36.7; O2SAT 93
[2024-01-22] MEDS: BUPIVACAINE HCL 0.25% PF 25 MG/10 ML VIAL INJ (11:15)
[2024-01-22] MEDS: LIDOCAINE HCL 2% PF 100 MG/5 ML VIAL INJ (11:16)
[2024-01-22] MEDS: TRIAMCINOLONE ACETONIDE 40 MG/ML VIAL INJ (11:16)
[2024-01-22] MEDS: IOHEXOL 240 MG/ML - 10 ML VIAL INJ (11:17)
--- NOTE | 2024-01-22 11:17 | W.PM.PROCNOT ---
Date of procedure: 01/22/24 Pre-op diagnosis: Sacroiliitis, right Post-op diagnosis: same as pre-op Procedure: Procedure: Right sacroiliac joint injection Medications: Bupivacaine 0.25% 3cc, kenalog 40mg After informed consent was obtained, the patient was brought to the medical procedure unit and placed in the prone position, when a timeout was completed verifying correct patient, procedure, site, positioning, implant, and/or special equipment.? The skin overlying the area was prepped and draped in standard sterile fashion using alcohol.? A 25-gauge needle was inserted towards the right sacroiliac joint under direct fluoroscopic imaging.? Needle tip was advanced until the joint was encountered.? We instilled a total of 2 mL of solution.? Postoperatively needles were removed.? The patient tolerated the procedure well without complication.? The patient reported reduction in pain symptoms postoperatively. Anesthesia: Local Surgeon: Jadyn Wyman Pathology: none sent Condition: stable Disposition: no change
[2024-01-22 11:18] VITALS: PULSE 66; O2SAT 93
[2024-01-22 11:20] VITALS: BP 119/55; PULSE 59; O2SAT 92
== END 2024-01-22 11:25 | disposition home or self-care (01) ==
LOC: SURGOUT 10:22
PROVIDERS: PCP Internal Medicine; Visit Provider Anesthesiology
DX: M46.1 Sacroiliitis, not elsewhere classified (principal)
CPT/HCPCS: 27096; Q9966

== ENCOUNTER 2024-01-27 11:50 | Emergency (ER) | payer MEDICARE, SELFPAY ==
[2024-01-27 11:53] VITALS: BP 171/66; PULSE 58; TEMP 36.7; O2SAT 96; BMI 47.6
--- OUTSIDE RECORDS SUMMARY | 2024-01-27 12:04 | XMS_ITS | CCD ---
Author Organization [facility] Care Team Providers Care Shop And Alteration Tailor Name Role Phone OLIVIA HALL Unavailable Unavailable NO FAMILY DOCTOR, NO FAMILY DOCTOR Unavailable Unavailable BALTAZAR GOMES Unavailable Unavailable NO FAMILY DOCTOR, NO FAMILY DOCTOR Unavailable Unavailable KOMAL NGUYEN Primary Care Physician AUTUMN PIMENTEL, DR OYKO Hair Consulting Unavailzuly RIZVI JR, DR YOKO Hair Admitting Unavailabl e SARBJIT, DR BAZAN Primary Care Unavailable AUTUMN PIMENTEL, DR YOKO Hair Attending Unavailzuly RIZVI JR, DR YOKO Hair Admitting Unavailzuly NGUYEN, DR BAZAN Primary Care Unavailable AUTUMN PIMENTEL, DR YOKO Hair Attending Unavailzuly RIZVI JR, DR YOKO Hair Consulting Unavailzuly RIZVI JR, DR YOKO Hair Admitting Unavailabl e SARBJIT, DR BAZAN Primary Care Unavailable AUTUMN PIMENTEL, DR YOKO Hair Attending UnavailMEGHAN Beltran Consulting Unavailable JOSELINE PARKER Consulting Unavailable SARBJIT, DR BAZAN Consulting Unavailable SARBJIT, DR BAZAN Primary Care Unavailable SARBJIT, DR BAZAN Admitting Unavailable SARBJIT, DR BAZAN Attending Unavailable ASHKAN BOCANEGRA Admitting Unavailable AAMIR, DR JORDAN Gonzalez Consulting Unavailable SARBJIT, DR BAZAN Primary Care Unavailable ASHKAN BOCANEGRA Attending Unavailable ASHKAN BOCANEGRA Consulting Unavailable AUTUMN PIMENTEL, DR YOKO Hair Admitting Unavailzuly RIZVI JR, DR YOKO Hair Attending Unavailzuly RUTLEDGE, DR JORDAN Gonzalez Consulting Unavailable SARBJIT, DR BAZAN Primary Care Unavailable AUTUMN PIMENTEL, DR YOKO Hair Consulting Unavailzuly NGUYEN, DR BAZAN Primary Care Unavailable MEGHAN HINDS Admitting Unavailable MEGHAN HINDS Attending Unavailable MEGHAN HINDS Consulting Unavailable Komal Nguyen II Primary Care Provider [phone] Komal Nguyen II Primary Care Provider GEOVANY Nguyen Primary Care Provider MD Ivan Barnhart Attending Provider [phone] GEOVANY Nguyen Primary Care Provider MD Ivan Barnhart Attending Provider [phone] Rizvi, Yoko L Attending Unavailable Rizvi, Yoko L Referring Unavailable Rizvi, Yoko L Admitting Unavailable JIL, MASHA E Admitting Unavailable JIL, MASHA E Attending Unavailable Rizvi, Yoko L Admitting Unavailable Rizvi, Yoko L Attending Unavailable Rizvi, Yoko L Referring Unavailable Rizvi, Yoko L Attending Unavailable Rizvi, Yoko L Referring Unavailable Rizvi, Yoko L Attending Unavailable Rizvi, Yoko L Attending Unavailable Rizvi, Yoko L Attending Unavailable Rizvi, Yoko L Attending Unavailable Rizvi, Yoko L Attending Unavailable Rizvi, Yoko L Attending Unavailable Unavailable Unavailable Komal Nguyen MD Primary Care Provider KOMAL NGUYEN Primary Care Unavailable SANTACROCE, LORRI Consulting Unavailable HARVEY, ADDISON Attending Unavailable HARVEY, ADDISON Admitting Unavailable LE, KIM K Referring Unavailable LIAN PHILIP Consulting Unavailable Sarbjit, GEOVANY Bazan Primary Care Provider MD Ivan Barnhart Attending Provider MD Ivan Barnhart Attending Provider [phone] MD Jarret Garza Admit Provider [phone] Pauline Canales Other Provider Unavailable DO Tonia Rice Other Provider MD Wilton Lockhart Other Provider DO Stanley Saunders Other Provider Aime ANP-BC Sabine Other Provider DO Jamel Packer Other Provider ZACH Mosqueda Other Provider ANAMARIA Henning-Daniella Rascon Other Provider ZACH Coffey-POLE PEELER-C Brittney Nichols Other Provider MD Silvestre Grover Other Provider ZACH Armstrong Other Provider MD Lexy Chappell Other Provider MD Stanley Burt Other Provider MD Cora Rawls Other Provider DO Colten Xavier Other Provider MD Blank Gross Other Provider [phone] MD Eriberto Yang Other Provider MD Jamel Noe Other Provider DO Dejuan Tuttle Other Provider MD Chau Lara Attending Provider Nguyen II, Dr. Komal Mckeon Primary [facility] Solange vailable Nguyen II, Dr. Komal Mckeon [facility] Solange vailable Nguyen II, Dr. Komal Mckeon [facility] Solange vailable Nguyen II, Dr. Komal Mckeon [facility] Solange vailable Rizvi, Ms. Melonie Hanley Attending Unavai lable Rizvi, Ms. Melonie Hanley Referring Unavai lable Kiko, Dr. Baltazar Laws Referring Unava ilable Sarbjit II, Dr. Komal Mckeon [facility] Solange vailable Kiko, Dr. Baltazar Laws Attending Unava ilable Nguyen, II [facility] Provider MD Silvestre Grover Admit Provider MD Silvestre Grover Attending Provider [phone] HEATHER Potter Other Provider Unavailable HEATHER Mendoza Other Provider Unavailable HEATHER Lo Other Provider Unavailable HEATHER Renner Other Provider Unavailable HEATHER Justin Other Provider Unavailable HEATHER Leone Other Provider Unavailable MD Kevin Leo Other Provider ZACH Leon Other Provider DO Meri Blanco Other Provider MD Ubaldo Calvo Other Provider DO Mateo Horne Other Provider [phone] MD Tysno Cheema Other Provider MD Marsha Fritz Other Provider Yaya, ANP-BC Meera Other Provider MD Eliezer Newell Other Provider MD Dustin Stapleton Other Provider MD Ute Colvin Other Provider MD Chau Lara Other Provider DO Danie Jaramillo Other Provider MD Chetan Gray Other Provider MD Cuong Dos Santos Other Provider ANAMARIA Perez-C Candida Hickman Other Provider [phone] MD Kushal Vizcarra Other Provider MD Torsten Burdick Other Provider MD Dudley Leon Other Provider MD Markus Johnson Other Provider DO Sofia Martinez Other Provider DO Zia Duncan Other Provider DO Rodolfo Temple Other Provider [phone] ZACH Sharma Other Provider DO Dru Reveles Other Provider [phone] MD Jarret Garza Other Provider ZACH Rizvi Other Provider ZACH Shepherd Other Provider MD Suraj Razo Other Provider MD Komal Albright Other Provider ZACH Gamez Other Provider Inga, HEATHER Peña Other Provider Unavailable Komal Nguyen MD Primary Care Provider [phone] Komal Nguyen MD Primary Care Provider [phone] Komal Nguyen MD Unavailable [phone] Ivan Barnhart Admitting Unavailable Komal Nguyen Primary Care Unavailable Ivan Barnhart Attending Unavailable Komal Nguyen Primary Care Unavailable Ivan Barnhart Admitting Unavailable Ivan Barnhart Attending Unavailable Chau Lara Attending Unavailable Komal Nguyen Primary Care Unavailable Pauline Canales Consulting Unavailable Greg Obaybharat Ceja Admitting Unavailable Tonia Rice Consulting Unavailable Wilton Lockhart Consulting Unavailable Stanley Saunders Consulting Unavailab Sabine Orozco Consulting Unavailable Jamel Packer Consulting Unavailable Nikole Mosqueda Consulting Unavailable Rubia Henning Consulting Unavailable Brittney Coffey Consulting Unavailable Silvestre Grover Consulting Unavailable Donita Armstrong Consulting Unavailable Lexy Chappell Consulting Unavailable Stanley Burt Consulting Unavaila Cora Roland Consulting Unavailable Colten Xavier Consulting UnavailBlank Kahn Consulting Unavailable Eriberto Yang Consulting Unavailable Jamel Noe Consulting Unavailable Dejuan Tuttle Consulting Unavailable SarbjitKomal Primary Care Unavailable Silvestre Grover Attending Unavailable Silvestre Grover Admitting Unavailable Libby Potter Consulting Unavailable Melva Mendoza Consulting Unavailable Cassi Lo Consulting Unavailable Rocio Renner Consulting Unavailable Alessia Justin Consulting Unavailable Chayito Leone Consulting Unavailable Kevin Leo Consulting Unavailable Blank Leon Consulting Unavailable Meri Blanco Consulting Unavailable Ubaldo Calvo Consulting Unavailable Mateo Horne Consulting UnavailTyson Tinsley Consulting Unavailable Marsha Fritz Consulting Unavailable Meera Vargas Consulting UnavailEliezer Acharya Consulting Unavailable Dustin Stapleton Consulting Unavailable Ute Colvin Consulting Unavailable Chau Lara Consulting Unavailable Danie Jaramillo Consulting Unavailable Chetan Gray Consulting Unavailable Cuong Dos Santos Consulting Unavailable Candida Perez Consulting Unavailable Kushal Vizcarra Consulting Unavailab Torsten Cabrera Consulting Unavailable Dudley Leon Consulting Unavailable Elizabeth, Markus Consulting Unavailable Sofia Martinez Consulting Unavailable Zia Duncan Consulting Unavailable MiniRodolfo snow Consulting Unavailable ObSusanne cadet Consulting Unavailable Dru Reveles Consulting Unavailable DaromarJarret Consulting Unavailable Yuki Rizvi Consulting Unavailable Queenie Shepherd Consulting Unavailable AlaSuraj oakes Consulting Unavailable Komal Albright Consulting Unavailable Angelia Gamez Consulting Unavailable Mariana Xiong Consulting Unavailable Ivan Barnhart Attending Unavailable NGUYEN, KOMAL Primary Care Unavailable Ivan Barnhart Admitting Unavailable NGUYEN, KOMAL Primary Care Unavailable Ivan Barnhart Admitting Unavailable Ivan Barnhart Attending Unavailable Ivan Barnhart Attending Unavailable NGUYEN, KOMAL Primary Care Unavailable Ivan Barnhart Admitting Unavailable Ivan Barnhart Attending Unavailable NGUYEN, KOMAL Primary Care Unavailable Ivan Barnhart Admitting Unavailable NGUYEN, KOMAL Primary Care Unavailable Ivan Barnhart Admitting Unavailable Ivan Barnhart Attending Unavailable Ivan Barnhart Attending Unavailable NGUYEN, KOMAL Primary Care Unavailable Ivan Barnhart Admitting Unavailable Ivan Barnhart Attending Unavailable NGUYEN, KOMAL Primary Care Unavailable Ivan Barnhart Admitting Unavailable BALTAZAR HOOVER Attending Unavailable SARBJIT KOMAL B Primary Care Unavailable BALTAZAR HOOVER Referring Unavailable NGUYEN, KOMAL B Primary Care Unavailable Zamzam BRIDGES, Jadyn Hagen Attending Unavailable REAL TUTTLE Attending Unavailable DARINEL SMITH Attending Unavailable STANLEY SAUNDERS Referring Unavailable ANDERSON MCKINNON Attending Unavailable CHIP CHRISTOPHER Referring Unavailable ALEM SAMPSON Attending Unavailable CHIP CHRISTOPHER Referring Unavailable ANDERSON MCKINNON Attending Unavailable CHIP CHRISTOPHER Referring Unavailable ANDERSNO MCKINNON Attending Unavailable CHIP CHRISTOPHER Referring Unavailable ANDERSON MCKINNON Attending Unavailable CHIP CHRISTOPHER Referring Unavailable ALEM SAMPSON Attending Unavailable CHIP CHRISTOPHER Referring Unavailable KOMAL NGUYEN Attending Unavailable ALEM SAMPSON Attending Unavailable CHIP CHRISTOPHER Referring Unavailable ALEM SAMPSON Attending Unavailable CHIP CHRISTDERRICKER Referring Unavailable ALEM SAMPSON Attending Unavailable CHIP CHRISTOPHER Referring Unavailable ALEM SAMPSON Attending Unavailable CHIP CHRISTOPHER Referring Unavailable KOMAL NGUYEN Attending Unavailable KOMAL NGUYEN Referring Unavailable KOMAL NGUYEN Attending Unavailable ALEM SAMPSON Attending Unavailable STANLEY SAUNDERS Referring Unavailable ALEM SAMPSON Attending Unavailable STANLEY SAUNDERS Referring Unavailable REAL TUTTLE Attending Unavailable AIDE FERREIRA Attending Unavailable AIDE FERREIRA Referring Unavailable ALEM SAMPSON Attending Unavailable STANLEY SAUNDERS Referring Unavailable KOMAL NGUYEN Attending Unavailable STANLEY SAUNDERS Attending Unavailable ASHKAN BOCANEGRA Attending Unavailable REAL TUTTLE Attending Unavailable Allergies Allergy Classification Reported Allergen(s) Allergy Type Date of Onset Reaction(s) Facility (1 source) No Known Medication Allergies; Translations: [No Known Medication Allergies] Propensity to adverse reactions (disorder) [facility] Repository Medications Current Medications Medication Drug Class(es) Dates Sig (Normalized) Sig (Original) Acetaminophen (1 source) Start: 10-15-2022 acetaminophen (TYLENOL) tablet 650 mg Aller-itin (3 sources) Start: 02-17-2022 take 1 tablet by mouth once daily Aller-itin Aller-itin, 1 tab, Oral, Daily, allergies Start Date: 02/17/22 Status: Ordered amLODIPine 5 mg oral tablet (10 sources) Dihydropyridine Calcium Channel Ha Start: 12-27-2017 End: 09-20-2023 take 1 tablet by mouth once daily amLODIPine (Norvasc) 5 mg tablet Take 1 tablet (5 mg) by mouth once daily. 0 12/01/2020 09/20/2023 Discontinued (Other) apixaban 5 mg oral tablet (20 sources) Factor Xa Inhibitor Start: 05-10-2023 End: 06-09-2023 take 1 tablet by mouth every twelve hours Apixaban (Eliquis) 5 mg Tablet Active 5 MG PO Q12H 0 June 09, 2023 12:00am Start: 06-08-2019 take 1 tablet by gloria th twice daily Eliquis 5 MG tablet Indications: Pulmonary embolism, unspecified chronicity, unspecified pulmonary embolism type, unspecified whether acute cor pulmonale present (CMS/HCC) TAKE 1 TABLET BY MOUTH TWICE DAILY 180 tablet 3 05/15/2023 Active Start: 12-18-2018 End: 05-10-2023 take 10 mg by mouth twice daily, then take 5 mg by mouth twice daily Apixaban Discontinued 0 PO .COMPLEX 74 December 18, 2018 12:00am May 10, 2023 11:59pm take 10 mg by mouth twice daily for 7 days; then 5 mg twice daily Comment on above: Take 5 mg by mouth t wice daily. baclofen 10 mg oral tablet (20 sources) gamma-Aminobutyric Acid-ergic Agonist Start: 10-02-2023 take 1 tablet by mouth three times daily at mealtime baclofen (Lioresal) 10 MG tablet Indications: Cervical stenosis of spinal canal TAKE 1 TABLET BY MOUTH WITH FOOD OR MILK 3 TIMES DAILY 270 tablet 0 10/02/2023 Active Start: 07-03-2023 take 1 tablet by gloria th three times daily at mealtime baclofen (Lioresal) 10 MG tablet Indications: Cervical stenosis of spinal canal TAKE 1 TABLET BY MOUTH WITH FOOD OR MILK 3 TIMES DAILY 270 tablet 0 07/03/2023 Active Start: 12-15-2018 End: 05-06-2022 baclofen (Lioresal) 10 mg ta blet TAKE 1 TABLET 3 TIMES DAILY NEEDED FOR MUSCLE SPASM. 0 02/27/2020 Active Start: 12-15-2018 End: 05-21-2023 take 1 tablet by mouth every eight hours Baclofen Discontinued 1 TAB PO Q8H December 15, 2018 12:00am May 21, 2023 12:22pm Comment on above: Take 10 mg by mouth. cephalexin 500 mg oral capsule (8 sources) Cephalosporin Antibacterial Start: take 1 capsule by mouth every twelve hours Keflex 500 mg Cap 500 mg = 1 cap(s), Oral, q12hr, # 14 cap(s), Refills(s) 0, Pharmacy: [id number], 172, cm, 03/29/22 11:26:00 EDT, Height/Length Dosing, 150.9, kg, 03/29/22 11:26:00 EDT, Weight Dosing Start Date: 03/29/22 Status: Ordered Start: 03-03-2022 End: 03-08-2022 take 1 capsule by mouth every twelve hours Keflex 500 mg Cap 500 mg = 1 cap(s), Oral, q12hr, X 5 day(s), # 10 cap(s), Refills(s) 0, Pharmacy: [id number], 172, cm, 02/18/22 6:45:00 EDT, Height/Length Dosing, 150.9, kg, 02/18/22 6:45:00 EDT, Weight Dosing Start Date: 03/03/22 Stop Date: 03/08/22 Status: Ordered Start: 01-20-2019 End: 05-10-2023 take 1 capsule by mouth every six hours Cephalexin (Keflex) 500 mg capsule Discontinued 500 MG PO Q6H 28 January 20, 2019 12:00am May 10, 2023 11:59pm docosahexaenoic acid 120 mg / eicosapentaenoic acid 180 mg oral capsule (7 sources) take 2 capsules by mouth in the morning omega-3 (Fish Oil) 1000 MG capsule Take 2 capsules by mouth in the morning. 0 Active docosahexaenoic acid 144 mg / eicosapentaenoic acid 216 mg / vitamin e 2 unt oral capsule (6 sources) Start: 12-27-2017 take 1 capsule by mouth twice daily [place]-3 Fatty Acids-Fish Oil (Fish Oil) 360-1,200 mg Capsule Active 1 CAP PO Twice daily December 27, 2017 12:00am Fish Oils (11 sources) Start: 12-07-2021 take 1200 mg by mouth twice daily Fish Oil 1,200 mg, Oral, BID, Prophylaxis Start Date: 12/07/21 Status: Ordered Start: 12-07-2021 Fish Oil Oral Start Date: 12/07/21 Status: Ordered take 1 capsule by mo uth twice daily Fish Oil 1200 MG Oral Capsule Take 1 capsule twice daily Quantity: 0 Refills: 0 Ordered: 07-Sep-2022 DO Active furosemide 20 mg oral tablet (20 sources) Loop Diuretic Start: 05-18-2021 take 1 tablet by mouth in the morning furosemide (Lasix) 20 MG tablet Indications: Edema, unspecified type Take 1 tablet (20 mg) by mouth in the morning. 100 tablet 3 08/22/2023 Active hydrALAZINE hydrochloride 50 mg oral tablet (20 sources) Arteriolar Vasodilator Start: 02-20-2023 take 1 tablet by mouth twice daily at mealtime hydrALAZINE (Apresoline) 50 MG tablet Indications: Chronic cerebral ischemia TAKE 1 TABLET BY MOUTH TWICE DAILY WITH FOOD 180 tablet 3 02/20/2023 Active Start: 12-07-2021 hydrALAZINE 50 mg Start Date: 12/07/21 Status: Ordered Start: 12-27-2017 End: 05-06-2022 take 1 tablet by mouth twice daily hydrALAZINE (Apresoline) 50 mg tablet Take 1 tablet (50 mg) by mouth 2 times a day. 0 03/29/2021 Active Start: 12-27-2017 take 100 mg by mouth twice daily Hydralazine Active 100 MG PO Twice daily December 27, 2017 12:00am Comment on above: Take 50 mg by mouth twice daily. hydroCHLOROthiazide 25 mg / triamterene 37.5 mg oral tablet (20 sources) Potassium-sparing Diuretic, Thiazide Diuretic Start: 2 take 1 capsule by mouth once daily hydrochlorothiaz saad-triamterene 25 mg-37.5 mg Cap 1 cap(s), Oral, Daily, High blood pressure Start Date: 12/07/21 Status: Ordered Start: 03-04-2017 End: 06-09-2023 take 1 tablet by mouth once daily triamterene-hydrochlorothiazid (Maxzide- 25) 37.5-25 mg tablet Take 1 tablet by mouth once daily. 0 07/29/2020 Active take 1 tablet by gloria th in the morning triamterene-hydrochlorothiazide (Maxzide -25) 37.5-25 MG tablet Take 1 tablet by mouth in the morning. 0 Active Comment on above: Take by mouth once d aily. lactobacillus rhamnosus gg [id number] unt oral capsule (1 source) Start: 10-17-19 23 lactobacillus (CULTURELLE) capsule 1 capsule lisinopril 20 mg oral tablet (20 sources) Angiotensin Converting Enzyme Inhibitor Start: 03-04-20 17 take 1 tablet by mouth once daily lisinopril 20 MG tablet Indications: Benign essential hypertension (CMS/HCC) TAKE 1 TABLET BY MOUTH ONCE DAILY 90 tablet 3 09/08/2023 Active Comment on above: Take by mouth once d aily. loperamide hydrochloride 2 mg oral capsule (1 source) Opioid Agonist Start: 10-17-19 23 loperamide (IMODIUM) capsule 2 mg loratadine 10 mg disintegrating oral tablet (20 sources) Start: 02-18-20 22 loratadine (CLARITIN REDITABS) 10 MG dissolvable tablet Take by mouth 0 02/17/2022 Active Start: 02-17-2022 loratadine (WA L-ITIN ALLER-MELTS ORAL) Take by mouth. 0 02/17/2022 Active Start: 12-27-2017 End: 05-06-2022 take 1 tablet by mouth once daily Loratadine (Allergy Relief (Loratadine)) 10 mg Tablet Active 10 MG PO Daily December 27, 2017 12:00am take 1 capsule by mo uth once daily loratadine 10 mg capsule Take 1 capsule by mouth once daily. 0 Active Comment on above: Take by mouth. Take 10 mg by mouth once daily. 100 ml magnesium sulfate 10 mg/ml injection (1 source) Start: 3 take 1000 mg intravenously every hour as needed 1,000 mg, IntraVENous, at 100 mL/hr, Administer over 1 Hours, PRN, Other, Per IV Magnesium Replacement Protocol, Starting on 10/15/22 at 1920 Mg Lab &nbsp ; Replacement Action 1.4-1.6& nbsp; &nb sp;1 gram IVPB x 2 doses &nb sp; &nbsp ; & nbsp; &nb sp; &nbsp ; ( 2 gram Total) 1.0-1.3& nbsp; &nb sp;1 gram IVPB x 4 doses &nb sp; &nbsp ; & nbsp; &nb sp; &nbsp ; ( 4 gram Total) <1.0&nbs p; &n bsp; CALL PHYSICIAN and &n bsp; &nbs p; &n bsp; &nbs p;1 gram IVPB x 4 doses &n bsp; (4 gram Total) In fuse at 1 gram/hr Repeat Mag level next AM Protocol not for use in Patients with CrCl<30ml/min Multi Vitamins oral tablet (9 sources) Start: 2 take 1 tablet by mouth once daily Multi Vitamins oral tablet 1 tab(s), Oral, Daily, Prophylaxis Start Date: 12/07/21 Status: Ordered Start: 12-07-2021 Multi Vitamins oral tablet Oral, Daily Start Date: 12/07/21 Status: Ordered Multiple Vitamin (MULTI-VITAMINS PO) (1 source) Start: 12-07-2021 Multiple Vitam in (MULTI-VITAMINS PO) Take by mouth daily 0 12/07/2021 Active Multiple Vitamins-Minerals (GNP ONE DAILY MENS 50+ADVANCED PO) (7 sources) Start: 06-30-2009 take 1 tablet by mouth once daily at mealtime Multiple Vitamins-Minerals (GNP ONE DAILY MENS 50+ADVANCED PO) take 1 tablet by ORAL route every day with food Oral 0 06/30/2009 Active Unixnnif-Byk-Mc-Lycopen- Lutein (Adults 50 Plus) 0.4-300-250 mg-mcg-mcg Tablet (6 sources) Start: 12-27-2017 take 1 tablet by mouth once daily Hgcpuunj-Odg-Qz-Lycopen- Lutein (Adults 50 Plus) 0.4-300-250 mg-mcg-mcg Tablet Active 1 TAB PO Daily December 26, 2017 11:00pm Start: 12-27-2017 take 1 tablet by gloria th once daily Hdyeedit-Fge-Fo-Lycopen-Lutein (Adults 5 0 Plus) 0.4-300-250 mg-mcg-mcg Tablet Active 1 TAB PO Daily December 27, 2017 12:00am multivit-min/ferrous fumarate (MULTI VITAMIN ORAL) (1 source) take 1 tablet by mouth once daily multivit-min/ferrous fumarate (MULTI VITAMIN ORAL) Take 1 tablet by mouth once daily. 0 Active nebivolol 10 mg oral tablet (20 sources) Start: 2021 take 1 tablet by mouth in the morning nebivolol (Bystolic) 10 MG tablet Take 10 mg by mouth in the morning. 0 01/24/2023 Active Comment on above: Take 10 mg by mouth. nystatin 100 unt/mg topical powder (8 sources) Polyene Antifungal Start: 2022 nystatin (Mycostatin) 183087 UNIT/GM powder APPLY TO THE AFFECTED AREA(S) THREE TIMES DAILY FOR 30 DAYS 0 06/09/2023 Active Start: 06-09-2023 Nystatin (Nyst op) 100,000 unit/gram Powder Active 1 APPLIC TOPICAL Three times daily 1 June 09, 2023 12:00am omega 3-axz-xyf-fish oil 360 mg-108 mg- 180 mg-1,200 mg capsule (1 source) omega 3-dha-epa- fish oil 360 mg-108 mg- 180 mg-1,200 mg capsule TAKE DIRECTED. 0 Active [place]-3 Fatty Acids (FISH OIL) 1200 MG CAPS (1 source) Start: 06-08-2022 take 1 capsule by mouth at bedtime [place]-3 Fatty Acids (FISH OIL) 1200 MG CAPS Take 1,200 mg by mouth in the morning and at bedtime 0 06/08/2022 Active ondansetron (ZOFRAN-ODT) disintegrating tablet 4 mg (1 source) Start: 10-15-2022 ondansetron (ZOFRAN-ODT) disintegrating tablet 4 mg microencapsulated potassium chloride 10 meq extended release oral tablet (20 sources) Start: 09-28-2023 End: 10-04-2024 take 1 tablet by mouth in the morning potassium chloride CR (Klor-Con M10) 10 MEQ ER tablet Indications: Osteoarthritis of spine with radiculopathy, cervical region Take 1 tablet (10 mEq) by mouth in the morning and 1 tablet (10 mEq) before bedtime. Take with food.. 180 tablet 3 10/05/2023 10/04/2024 Active Start: 05-10-2023 End: 06-09-2023 take 10 mEq by mouth once daily Potassium Chloride Act alex 10 MEQ PO Daily June 09, 2023 9:05am Start: 10-18-2022 End: 10-18-2022 potassium chloride (KLOR-CON M) extended release tablet 40 mEq Start: 10-15-2022 potassium chlo ride (KLOR-CON M) extended release tablet 40 mEq Start: 06-08-2022 potassium chlo ride (MICRO-K) 10 MEQ extended release capsule Take 10 mEq by mouth daily 0 06/08/2022 Active Start: 12-07-2021 potassium chlo ride SR (MICRO-K) 10 mEq CR capsule Take 10 mEq by mouth. 0 12/07/2021 Active Start: 12-07-2021 potassium chlo ride 10 mEq Cap-ER mEq cap(s), Oral Start Date: 12/07/21 Status: Ordered take 1 tablet by gloria th once daily potassium chloride CR 10 mEq ER tablet Take 1 tablet (10 mEq) by mouth once daily. Emergency refill 0 Active Comment on above: Take 10 mEq by mouth . predniSONE 10 mg oral tablet (20 sources) Start: 12-27-2017 End: 06-09-2023 take 10 mg by mouth once daily Prednisone Active 10 MG PO Daily June 09, 2023 9:05am Start: 06-08-2017 take 1.5 tablets by mouth in the morning predniSONE (Deltasone) 10 MG tablet Take 1.5 tablets by mouth in the morning. 0 06/08/2017 Active End: 09-20-2023 take 1 tablet by mouth once daily predniSONE (Deltasone) 5 mg tablet Take 1 tablet (5 mg) by mouth once daily. 0 09/20/2023 Discontinued (Duplicate order) pyridostigmine bromide 60 mg oral tablet (20 sources) Start: 04-05-2017 End: 06-09-2023 take 1 tablet by mouth four times daily pyridostigmine (Mestinon) 60 mg tablet Take 1 tablet (60 mg) by mouth 4 times a day. 0 07/19/2021 Active Start: 04-05-2017 pyridostigmine (MESTINON) 60 mg tablet Take 100 mg by mouth four times daily. 0 04/05/2017 Active Comment on above: Take 100 mg by mouth four times daily. simvastatin 40 mg oral tablet (20 sources) HMG-CoA Reductase Inhibitor Start: 03-04-20 take 1 tablet by mouth once daily in the evening simvastatin (Zocor) 40 MG tablet Indications: Pure hypercholesterolemia (CMS/HCC) TAKE 1 TABLET BY MOUTH ONCE DAILY IN THE EVENING 90 tablet 3 08/31/2023 Active Comment on above: Take by mouth once d aily. Completed/Discontinued Medications Medication Drug Class(es) Dates Sig (Normalized) Sig (Original) Albuterol (6 sources) beta2-Adrenergic Agonist Start: 12-15-2018 End: 05-10-2023 take 1 puff(s) by inhalation every four hours Albuterol Sulfate Discontinued 2 PUFF INHALATION Q4H December 15, 2018 12:00am May 10, 2023 11:59pm Start: 12-15-2018 take 1 puff(s) by in halation every four hours Albuterol Sulfate Active 2 PUFF INHALATION Q4H December 14, 2018 11:00pm Start: 12-15-2018 take 1 puff(s) by in halation every four hours Albuterol Sulfate Active 2 PUFF INHALATION Q4H December 15, 2018 12:00am amiodarone hydrochloride 200 mg oral tablet (11 sources) Antiarrhythmic Start: 05-19-2023 End: 10-05-2023 take 1 tablet by mouth in the morning amiodarone (Pacerone) 200 MG tablet Take 200 mg by mouth in the morning. 0 06/10/2023 10/05/2023 Discontinued (Therapy completed) aspirin 81 mg delayed release oral tablet (19 sources) Platelet Aggregation Inhibitor, Nonsteroidal Anti-inflammatory Drug Start: 12-18-2018 End: 05-10-2023 take 1 tablet by mouth once daily Aspirin (Aspir-Low) 81 mg tablet,delayed release (DR/EC) Discontinued 81 MG PO Daily December 18, 2018 12:00am May 10, 2023 11:59pm Start: 02-21-2018 End: 05-06-2022 take 325 mg by mouth once daily Aspirin Discontinued 325 MG PO Daily February 21, 2018 12:00am December 18, 2018 12:27pm Start: 12-27-2017 End: 02-14-2018 take 325 mg by mouth once daily Aspirin Discontinued 325 MG PO Daily December 27, 2017 12:00am February 14, 2018 9:26am Comment on above: Take 325 mg by mouth once daily. carvedilol 12.5 mg oral tablet (2 sources) alpha-Adrenergic Ha, beta-Adrenergic Ha Start: 10-16-19 End: 10-15-19 take 12.5 mg by mouth once daily at mealtime 12.5 mg, Oral, DAILY, First dose on 10/16/22 at 1300, Until Discontinued Administer with food to minimize the risk of orthostatic hypotension cefepime (MAXIPIME) 2,000 mg in sterile water 20 mL IV syringe (1 source) Start: 10-16-19 End: 10-17-19 cefepime (MAXIPIME) 2,000 mg in sterile water 20 mL IV syringe ciprofloxacin 500 mg oral tablet (5 sources) Quinolone Antimicrobial Start: 12-08-19 take 1 tablet by mouth once daily Cipro 500 mg Tab 500 mg = 1 tab(s), Oral, Daily, take 1 day prior to procedure and 1 tab after procedure, # 2 tab(s), Refills(s) 0, Pharmacy: [id number] Start Date: 12/07/21 Status: Ordered gabapentin 300 mg oral capsule (20 sources) Anti-epileptic Agent Start: 07-05-20 End: 10-04-19 take 1 capsule by mouth at bedtime gabapentin (Neurontin) 300 MG capsule Indications: Type 2 diabetes mellitus with diabetic neuropathy, without long-term current use of insulin ([facility]) Take 1 capsule (300 mg) by mouth at bedtime. 30 capsule 5 06/22/2023 10/05/2023 Discontinued (Reorder) Start: 07-05-2019 take 1 capsule by [facility] twice daily gabapentin (NEURONTIN) 300 mg capsule Take 300 mg by mouth twice daily. 5 07/05/2019 Active Comment on above: Take 300 mg by mouth twice daily. hydroCHLOROthiazide 12.5 mg / lisinopril 20 mg oral tablet (1 source) Thiazide Diuretic, Angiotensin Converting Enzyme Inhibitor End: 023 lisinopril-hydroCHL OROthiazide (PRINZIDE;ZESTORETI C) 20-12.5 MG per tablet Take by mouth daily 0 10/18/2022 Discontinued (LIST CLEANUP) metoprolol tartrate 25 mg oral tablet (8 sources) beta-Adrenergic Ha Start: 018 End: take 25 mg by mouth twice daily Metoprolol Tartrate Discontinued 25 MG PO Twice daily February 21, 2018 12:00am December 15, 2018 7:56pm Comment on above: Take 25 mg by mouth twice daily. Multi Vitamin TABS (2 sources) Multi Vitamin TA BS TAKE 1 TABLET DAILY. Quantity: 0 Refills: 0 Ordered: 31-Aug-2021 DO Active MULTIVIT-MINERALS/FERROUS FUM (MULTI VITAMIN ORAL) (2 sources) MULTIVIT-MINERAL S/F ERROUS FUM (MULTI VITAMIN ORAL) Take by mouth once daily. 0 Active Comment on above: Take by mouth once d aily. naproxen sodium 220 mg oral tablet (7 sources) Nonsteroidal Anti-inflammatory Drug Start: End: take 2 tablets by mouth once daily Naproxen Sodium (Aleve) 220 mg Tablet Discontinued 2 TAB PO Daily December 27, 2017 12:00am December 18, 2018 12:27pm End: 05-06-2022 NAPROXEN ORAL Take by mouth. 0 05/06/2022 Discontinued (Course of therapy completed) Comment on above: Take by mouth. [place]-3 Fatty Acids, FISH OIL, 360-1,200 mg cap (2 sources) take 1 capsule by mouth twice daily [place]-3 Fatty Acids, FISH OIL, 360-1,200 mg cap Fish Oil 360 mg-1,200 mg capsule Take 1 capsule twice a day by oral route. 0 Active Comment on above: Fish Oil 360 mg-1,20 0 mg capsule Take 1 capsule twice a day by oral route. OMEGA-3 FATTY ACIDS-EPA ORAL (2 sources) OMEGA-3 FATTY AC IDS-EPA ORAL Take by mouth. 0 Active Comment on above: Take by mouth. phenazopyridine hydrochloride 100 mg oral tablet (3 sources) Start: 03-03-20 End: 05-06-20 take 1 tablet by mouth every twelve hours as needed phenazopyridine (PYRIDIUM, GERIDIUM) 100 mg tablet Take 100 mg by mouth twice daily as needed. 0 03/03/2022 05/06/2022 Discontinued (Course of therapy completed) Start: 02-01-2022 take 1 tablet by gloria th every twelve hours Pyridium 100 mg Tab 100 mg = 1 tab(s), Oral, q12hr, # 30 tab(s), Refills(s) 0, Pharmacy: [id number] Start Date: 02/01/22 Status: Ordered Comment on above: Take 100 mg by mouth twice daily as needed. polyethylene glycol [id number] [id number] mg powder for oral solution (1 source) Osmotic Laxative Start: 10-15-2022 17 g, Oral, DAILY PRN, Starting on 10/15/22 at 1920, Until Discontinued, Constipation First line therapy for constipation 1000 ml sodium chloride 9 mg/ml injection (4 sources) Start: 10-15-2022 End: 10-17-2022 0.9 % sodium chloride infusion Start: 10-15-2022 take 1 dose intraven ously twice daily 5-40 mL, IntraVENous, EVERY 12 HOURS SCHEDULED (2 times per day), First dose on 10/15/22 at 2100, Until Discontinued For Line Patency: Peripheral IV = 5 mL; Midline or Central Line = 10 mL/lumen. If following IV push medication, administer flush at same rate as the IV push. Flush volume is determined by type of infusion therapy being given. For non-viscous solutions use: Peripheral IV = 5 mL Midline or Central Line = 10 mL/lumen For viscous solutions (i.e. blood components, parenteral nutrition, contrast media, or after obtaining blood sample) use: Peripheral IV = 10 mL Midline or Central Line = 20 mL/lumen Start: 10-15-2022 IntraVENous, a t 5-250 mL/hr, PRN, if patient receiving piggyback infusions and maintenance fluids are not ordered OR KVO fluids to protect IV site / prevent frequent line interruptions/ long duration, Starting on 10/15/22 at 1920 For piggyback infusion, administer at same rate as piggyback for a total of 25 mL. Enter 25 mL into dose field and piggyback rate into rate field of order. If piggyback is infusing at a rate less than 100 mL/hr, enter 25 mL into dose field and 100 mL/hr into rate field of order. For KVO fluids, enter rate of 20 mL/hr or less into rate field of order. Start: 10-15-2022 take 10 mL intraveno usly once as needed 10 mL, IntraVENous, PRN, Starting on 10/15/22 at 1920, Until Discontinued, Line Care, After every IV line use sulfamethoxazole 800 mg / trimethoprim 160 mg oral tablet (6 sources) Dihydrofolate Reductase Inhibitor Antibacterial, Sulfonamide Antimicrobial Start: 02-23-2018 End: 12-15-2018 take 1 tablet by mouth twice daily Sulfamethoxazole-Trimethoprim (Bactrim Ds) 800-160 mg tablet Discontinued 1 TAB PO Twice daily February 23, 2018 12:00am December 15, 2018 7:44pm traMADol hydrochloride 50 mg oral tablet (1 source) Opioid Agonist Start: 05-27-2019 End: 05-06-2022 take 1 tablet by mouth every six hours as needed traMADol (ULTRAM) 50 mg tablet Take 50 mg by mouth every 6 hours as needed. 2 05/27/2019 05/06/2022 Discontinued (Course of therapy completed) Comment on above: Take 50 mg by mouth every 6 hours as needed. Problems Active Problems Problem Classification Problem Date Documented Date Episodic/Chronic Cancer of bladder (18 sources) Malignant neoplasm of posterior wall of bladder; Translations: [Malignant neoplasm of lateral wall of urinary bladder] Onset: 2 Chronic Cardiac dysrhythmias (20 sources) Atrial fibrillation; Translations: [Unspecified atrial fibrillation] Onset: 3 05-18-2023 Chronic Chronic kidney disease (4 sources) Chronic kidney disease stage 3; Translations: [Stage 3 chronic kidney disease] 05-11-2023 Chronic Chronic kidney disease (1 source) Chronic kidney disease; Translations: [Chronic kidney disease, stage 3 unspecified] Onset: 3 Coagulation and hemorrhagic disorders (7 sources) Hypercoagulability state; Translations: [Other primary thrombophilia] Onset: 3 12-27-2022 Chronic Congestive heart failure; nonhypertensive (7 sources) Right ventricular failure; Translations: [Right heart failure, unspecified] Onset: 3 12-27-2022 Chronic Diabetes mellitus with complications (14 sources) Type 2 diabetes mellitus; Translations: [Type 2 diabetes mellitus with diabetic neuropathy, unspecified] Onset: 3 Chronic Diabetes mellitus without complication (9 sources) Abnormal glucose tolerance test 12-07-2021 Episodic Diseases of white blood cells (2 sources) Band neutrophil count above reference range; Translations: [Bandemia] Onset: 3 Resolved: 3 Chronic Disorders of lipid metabolism (20 sources) Hypercholesterolemia; Translations: [Pure hypercholesterolemia, unspecified] Onset: 2 12-03-2021 Chronic Essential hypertension (20 sources) Hypertensive disorder; Translations: [Essential (primary) hypertension] Onset: 2 12-03-2021 Chronic Essential hypertension (1 source) Essential hypertension Onset: 8 Fever of unknown origin (4 sources) Fever; Translations: [Fever, unspecified] Onset: 3 Resolved: 3 Episodic Genitourinary symptoms and ill-defined conditions (2 sources) Urge incontinence; Translations: [Urge incontinence of urine] Onset: 2 Chronic Genitourinary symptoms and ill-defined conditions (20 sources) Blood in urine; Translations: [Gross hematuria] Onset: 2 Episodic Hyperplasia of prostate (20 sources) Benign prostatic hypertrophy without outflow obstruction; Translations: [Benign prostatic hyperplasia without lower urinary tract symptoms] Onset: 2 Chronic Malaise and fatigue (4 sources) Malaise and fatigue; Translations: [Other malaise] Onset: 3 Resolved: 3 Episodic Neoplasms of unspecified nature or uncertain behavior (3 sources) Neoplasm of unspecified behavior of bladder; Translations: [NEOPLASM UNS BEHAVIOR OF BLADDER] Onset: 2 Episodic Osteoarthritis (7 sources) Osteoarthritis of joint of left elbow; Translations: [Primary osteoarthritis, left elbow] Onset: 3 12-27-2022 Chronic Other aftercare (3 sources) Other intermediate manager (current) drug therapy; Translations: [OTH CLINICAL SOCIAL WORK THERAPIST CURRENT DRUG THERAPY] Onset: 2 Episodic Other aftercare (1 source) intermediate school teacher (current) use of anticoagulants; Translations: [PRISON CURRNT USE ANTICOAGULANTS] Onset: 2 Episodic Other aftercare (2 sources) Long-term current use of systemic steroid; Translations: [USP (current) use of systemic steroids] Onset: 3 Episodic Other aftercare (2 sources) Taking high risk medication; Translations: [Other intermediate manager (current) drug therapy] Onset: 4 09-20-2023 Episodic Other and ill-defined cerebrovascular disease (7 sources) Chronic cerebral ischemia; Translations: [Cerebral ischemia] Onset: 3 12-27-2022 Chronic Other and ill-defined cerebrovascular disease (7 sources) Small vessel cerebrovascular disease; Translations: [Cerebrovascular disease, unspecified] Onset: 3 12-27-2022 Chronic Other and ill-defined heart disease (7 sources) Cardiomegaly; Translations: [Cardiomegaly] Onset: 3 12-27-2022 Chronic Other connective tissue disease (3 sources) Paraparesis; Translations: [Other symptoms and signs involving the musculoskeletal system] 09-21-2023 Episodic Other connective tissue disease (3 sources) Pain in right lower limb; Translations: [Pain in right leg] 09-21-2023 Episodic Other diseases of bladder and urethra (1 source) Disorder of bladder; Translations: [Other specified disorders of bladder] Onset: 2 Chronic Other diseases of bladder and urethra (8 sources) Mass of urinary bladder 12-27-2021 Chronic Other diseases of bladder and urethra (1 source) Other specified disorders of bladder; Translations: [OTHER SPECIFIED DISORDERS BLADDER] Onset: 2 Chronic Other diseases of bladder and urethra (1 source) Bladder disorder, unspecified; Translations: [BLADDER DISORDER UNSPECIFIED] Onset: 2 Chronic Other ear and sense organ disorders (6 sources) Hearing loss; Translations: [Unspecified hearing loss, unspecified ear] 12-27-2017 Chronic Other gastrointestinal disorders (1 source) Oropharyngeal dysphagia; Translations: [Dysphagia, oropharyngeal phase] 05-22-2023 Episodic Other hematologic conditions (5 sources) High troponin I level; Translations: [Other specified abnormalities of plasma proteins] 12-17-2018 Episodic Other injuries and conditions due to external causes (2 sources) Systemic inflammatory response syndrome; Translations: [Systemic inflammatory response syndrome (SIRS) of non-infectious origin without acute organ dysfunction] Onset: 3 Resolved: 3 Episodic Other lower respiratory disease (1 source) Dyspnea, unspecified; Translations: [Dyspnea, unspecified] Onset: 8 Episodic Other nervous system disorders (20 sources) Myasthenia gravis; Translations: [Myasthenia gravis without (acute) exacerbation] Onset: 3 12-07-2021 Chronic Other nervous system disorders (9 sources) 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 Other nervous system disorders (3 sources) Myasthenic crisis; Translations: [Myasthenia gravis with (acute) exacerbation] 05-11-2023 Chronic Other nervous system disorders (2 sources) Myasthenia gravis with exacerbation; Translations: [Myasthenia gravis with (acute) exacerbation] 05-11-2023 Chronic Other nervous system disorders (5 sources) Myasthenia gravis with (acute) exacerbation; Translations: [Myasthenia gravis with (acute) exacerbation] 05-21-2023 Chronic Other nervous system disorders (6 sources) Myasthenia gravis without (acute) exacerbation; Translations: [Myasthenia gravis without (acute) exacerbation] Onset: 3 05-21-2023 Chronic Other nervous system disorders (10 sources) Difficulty walking; Translations: [Difficulty in walking, not elsewhere classified] Onset: 3 09-21-2023 Chronic Other nervous system disorders (7 sources) Carpal tunnel syndrome; Translations: [Carpal tunnel syndrome, unspecified upper limb] Onset: 3 12-27-2022 Chronic Other nervous system disorders (7 sources) Ulnar neuropathy; Translations: [Lesion of ulnar nerve, unspecified upper limb] Onset: 3 12-27-2022 Chronic Other nervous system disorders (1 source) Myasthenia gravis with (acute) exacerbation; Translations: [Myasthenia gravis with (acute) exacerbation] Onset: 3 Chronic Other nervous system disorders (2 sources) Myasthenia gravis without exacerbation; Translations: [Myasthenia gravis without (acute) exacerbation] 10-05-2023 Chronic Other nutritional; endocrine; and metabolic disorders (9 sources) Obesity 12-07-2021 Chronic Other nutritional; endocrine; and metabolic disorders (8 sources) Body mass index 40+ - severely obese; Translations: [Morbid obesity] Onset: 3 05-16-2023 Chronic Other nutritional; endocrine; and metabolic disorders (2 sources) Morbid obesity; Translations: [Morbid (severe) obesity due to excess calories] Onset: 3 Chronic Other nutritional; endocrine; and metabolic disorders (2 sources) Hypomagnesemia; Translations: [Hypomagnesemia] Onset: 3 Chronic Other nutritional; endocrine; and metabolic disorders (2 sources) Hypocalcemia; Translations: [Hypocalcemia] Onset: 3 Chronic Other nutritional; endocrine; and metabolic disorders (6 sources) Morbid (severe) obesity due to excess calories; Translations: [Morbid obesity] Onset: 3 05-21-2023 Chronic Other nutritional; endocrine; and metabolic disorders (9 sources) Obesity caused by energy imbalance; Translations: [Morbid (severe) obesity due to excess calories] Onset: 3 12-27-2022 Chronic Other nutritional; endocrine; and metabolic disorders (1 source) Body mass index (BMI) 50.0-59.9, adult; Translations: [Body mass index [BMI] 50.0-59.9, adult] Onset: 3 Chronic Other nutritional; endocrine; and metabolic disorders (2 sources) Body mass index (BMI) 45.0-49.9, adult; Translations: [Body mass index (BMI) 45.0-49.9, adult ([facility])] Onset: 3 Chronic Other screening for suspected conditions (not mental disorders or infectious disease) (14 sources) Patient encounter status; Translations: [Encounter for screening for other disorder] Onset: 3 Resolved: 3 Episodic Other upper respiratory disease (7 sources) Allergic rhinitis; Translations: [Other allergic rhinitis] Onset: 3 12-27-2022 Chronic Peripheral and visceral atherosclerosis (2 sources) Intermittent claudication of bilateral lower limbs co-occurrent and due to atherosclerosis; Translations: [Atherosclerosis of [place] arteries of extremities with intermittent claudication, bilateral legs] 10-05-2023 Chronic Pulmonary heart disease (3 sources) Cor pulmonale; Translations: [Chronic pulmonary heart disease, unspecified] Onset: 3 06-05-2023 Chronic Pulmonary heart disease (20 sources) Pulmonary embolism; Translations: [Personal history of pulmonary embolism] Onset: 2 12-07-2021 Episodic Residual codes; unclassified (9 sources) Obstructive sleep apnea of adult 12-07-2021 Chronic Residual codes; unclassified (20 sources) Obstructive sleep apnea syndrome; Translations: [Obstructive sleep apnea (adult) (pediatric)] Onset: 3 12-03-2021 Chronic Residual codes; unclassified (4 sources) Obstructive sleep apnea (adult) (pediatric); Translations: [Obstructive sleep apnea (adult)(pediatric)] Onset: 2 05-21-2023 Chronic Retinal detachments; defects; vascular occlusion; and retinopathy (9 sources) 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 Spondylosis; intervertebral disc disorders; other back problems (20 sources) Lumbosacral spondylosis without myelopathy; Translations: [Cervical spondylosis] Onset: 3 12-07-2021 Chronic Unclassified (2 sources) Dyspnea, unspecified / R06.00(ICD-9) Onset: 8 Viral infection (1 source) COVID-19; Translations: [COVID-19] Onset: 1 Past or Other Problems Problem Classification Problem Date Documented Da te Episodic/Chronic Administrative/social admission (6 sources) Other reduced mobility; Translations: [Impaired mobility and activities of daily living] Onset: 05-11-2023 05-16-2023 Episodic Bacterial infection; unspecified site (1 source) Enterococcus as the cause of diseases classified elsewhere; Translations: [Enterococcus as the cause of diseases classified elsewhere] Onset: 05-11-2023 Episodic Fluid and electrolyte disorders (18 sources) Hyponatremia; Translations: [Hypo-osmolality and hyponatremia] Onset: 10-16-2022 Resolved: 10-18-2022 Episodic Immunizations and screening for infectious disease (4 sources) Encounter for immunization; Translations: [ENCOUNTER FOR IMMUNIZATION] Onset: 05-25-2021 Episodic Other connective tissue disease (16 sources) Calcaneal spur; Translations: [Calcaneal spur, unspecified foot] Onset: 12-27-2022 12-07-2021 Episodic Other gastrointestinal disorders (2 sources) Dysphagia, oropharyngeal phase; Translations: [Dysphagia, oropharyngeal phase] Onset: 05-21-2023 06-10-2023 Episodic Other lower respiratory disease (13 sources) Dyspnea on exertion; Translations: [Other forms of dyspnea] Onset: 12-27-2022 12-27-2017 Episodic Other lower respiratory disease (3 sources) Dyspnea; Translations: [Other respiratory abnormalities] Onset: 06-05-2023 06-05-2023 Episodic Other nervous system disorders (1 source) Parageusia; Translations: [PARAGEUSIA] Onset: 05-02-2021 Episodic Other nervous system disorders (2 sources) Anosmia; Translations: [ANOSMIA] Onset: 04-19-2021 Episodic Other nervous system disorders (7 sources) Loss of sense of smell; Translations: [Anosmia] Onset: 12-27-2022 12-27-2022 Episodic Other nervous system disorders (7 sources) Loss of taste; Translations: [Parageusia] Onset: 12-27-2022 12-27-2022 Episodic Other nervous system disorders (7 sources) Poor balance; Translations: [Other abnormalities of gait and mobility] Onset: 12-27-2022 12-27-2022 Episodic Other nervous system disorders (7 sources) H/O: musculoskeletal disease; Translations: [Personal history of other diseases of the nervous system and sense organs] Onset: 03-17-2023 03-17-2023 Episodic Residual codes; unclassified (4 sources) Localized edema; Translations: [LOCALIZED EDEMA] Onset: 02-09-2021 Episodic Residual codes; unclassified (3 sources) Edema; Translations: [Edema] Onset: 06-05-2023 06-05-2023 Episodic Residual codes; unclassified (1 source) Other specified health status; Translations: [Other specified health status] Onset: 05-11-2023 Episodic Respiratory failure; insufficiency; arrest (adult) (5 sources) Acute respiratory failure; Translations: [Acute respiratory failure with hypoxia] Onset: 05-11-2023 05-11-2023 Episodic Spondylosis; intervertebral disc disorders; other back problems (14 sources) Cervical radiculopathy; Translations: [Radiculopathy, cervical region] Onset: 12-27-2022 12-27-2022 Episodic Unclassified (2 sources) Never smoked tobacco; Translations: [Never a smoker] Unclassified (1 source) Onset: 09-20-2023 09-20-2023 Urinary tract infections (15 sources) Urinary tract infection caused by Enterococcus; Translations: [Urinary tract infection, site not specified] Onset: 05-11-2023 02-23-2018 Episodic Results Test Name Value Interpretation Reference Range Facility XR HIP 2 OR 3 VW RIGHTon XR HIP 2 OR 3 VW RIGHT EXAMINATION: RIGH T HIP CLINICAL HISTORY: Pain. No history of trauma reported COMPARISON: None FINDINGS: 4 views are submitted. Examination limited by patient body habitus. The [id number] there is multilevel degenerative change visualized lower lumbar spine. The SI joints are grossly intact. The pelvis shows no gross focal bony abnormalities or fractures. There is narrowing of the right hip joint. There is mild degenerative change of the right hip. No focal bony No dislocation no acute fracture. IMPRESSION: LIMITED EXAMINATION DUE TO PATIENT BODY HABITUS. OSTEOARTHRITIS OF THE RIGHT HIP. NO ACUTE FRACTURE ELECTRONICALLY SIGNED BY: Aaron Talamantes MD Normal Not Available Coding Summaryon 10-16-2023 Coding Summary HTMLBase 64 ExsdqgvbGSv6mKf+PGhlYWQ+PE 1APQFbD95tdVOyqI5yR5TYMFxQ IysdGCDWCOxRYiYbcbDoGM5utM NjZXJu IC8+AI0rFZPbQjqluDZyp4W6lZ E1Z49ndb7bOQcujOM0PIVmAgBv uaqgm8eeoEl5GIgzAthvCkEm LRVudR09MGZ0mY98Xq31wMTiaY Ewt0hhkSi0TeTgIFEuCWS0eCqy XJepp0YqEQIpL60tmBFye6O9 GDMvmXejdRCnAlYyuYC7zH3cCJ ahpkkyf0yzcypfHvz3rc15pPZw v0Q5eJV5A6ZfeiI7CZFnsCAi NclytBDAmS6oahjvm4twzgizRi CeEHQsBHb0TTr8QKNizWjrBbUi WL37SZA0JBFelcKwD1SdOHSi qIqqGnE6m9L2Sl5WV0HJIynjG5 VNTUFSWTwvdGQ+HO71fz03L1Zv WzisAkk2PVYyVHR5zJA7rI3w AVOuWTwyg3I2mHC9S0ZtwvMubl 1ll1ckKIVpQLusH08abMXxw7P5 RQUbaAK2CKOunBwyCsZcrK79 Oyc+UXGpeVqde8XvMoiwg5zjs2 kcjYp9CcrcSCVwbaFhvPehDUR9 g0KrLt2lJQDmfZZ4gFT9yJ8p YrRqJiU2MXfoP026OuXexCRcSs jsA33bT9HpiEB+RJQcYxp9AUNa zDxpXW4eA3LgCQXckhvutDPs mLmjCM4eUETlohdwXBYmrG8mES FsJ7a2HbWdCaY0PJqfY4HzCGHa vuhmTq74hE7sVaBrZqW4TGbo G1QwslJ0OCYrvBElBGzqGKH7R6 4to5I2COIiOTIuBFX6nBU3kC2i bGlnbjogbGVmdDsgdmVydGlj WYmyPCnvH177NBFoqKyxRsJrGF luZyBEYXRlOiAgMDIvMjYvMjAy NDwvdGQ+NVXjXWE9zGpiENDp oDVoZJwvVl2reUqieLgwSE1cHU RaokihUEWxqE0kPZSerDUkfIdm DG4yPIXxdpcge700ZzBlQQZ3 GISgmGArK2WfdY3tVaKpLINyWO GtI4QnlYZjMFmeP669TNfaAyW0 SGOkkqGkE7HfYLXyjOhpYnD6 s8R5Jt9No8GlhpgfA6SprNArTa CsNaxsYKs7Y9XbCiltnQV+PC90 FIRhSW88DMt9FBY2rVybWZsg HEDqA9KmmX5lPrWdLTTaLCTgEs c+PHRhYmxlIHdpZHRoPScxMDAl OnDeaCalQT0bWj0kWTIoIPHs uInssTYqWnXob1lzAVZnULcrHZ 1uxKjdE9SvvCK8NNOpt2c5Rk72 E78tK7OmlPU+RJEcaEG6nPS0 gX7qUgQsAeL5HTttO904StIwzJ RbZqjdj0bpf9jhhQj0BaO1UOBq jrNadRotAUT7u9MoGp66O73s IHdpZHRoPSIxNSUiIHZhbGlnbj 3jsH1xPb1+XNJivOA3lPT3pS2m WwLxZuL1MYddO385HaDsmVXe Savab6wad3himGb7ElQqYDDobr EyuZziMLB3t9GcTn57N6OljTpi f3VuBda8zn74rCVtg7F7eEF5 R5MoCCMzztrsdAXsmOdvVU6xIN GerypxHWFltR6sPVOgT5z9BrEm FfO9GTzgZ5WebtG0JQBhkFYa YHZcdNNYtH0qirsfk2aaoxtxAr KmLUZmBZy2AUi8DJYnbBuoPuCb UGY0LxD9KMB4yLFgnL0qwPzp gzxffK7hCbo+XXL5gABqtDFPSQ 1lOjwvdGQ+NUHhWKY2pUntNGpk EOFewX9oQHVzC1l2HyWaRvR7 JNwxJ5KlwnV4UYFdvKCdLSPxtO ZNqE2zpmqat4gsewvdGjPfJQXd KNl2EAk2FMAmcMtfWfDaFOE2 NhF5TCU0rPSpzY6baKqrhlcczC 9wOyc+EhggeWubURH8TLl4D7Dg Jlv2OJDmmHdiRD5tjVHlHAmt Im9btRlfwCgoUS8mLWCkzxroz4 76VsGbv2dzDXNltJTrARctGRW5 I36hx9X2RZZyRNDlBLF5lJS9 bL8hsXofuwswmLVynNdmnwLpwY gtFQctHQplK229PUCyiJekRiSi UGv1O6JxFvg9TUSmdEtvPF1n tVVgQQudGa2agEkrqJlsLE5mEL Kgxisfp852SoHys3ubMWEabBSb XIgaHCS8P44sy6A3JIAuDYJl WXO7eOU0fZ4wbBrcrjmvgWUruT sqilXquNigZFtlUXnzJ271ZYVz yJvnYmGzlMc0V6ToIdb1IMLu lYwmRZ0erRHkUBtqLw9hxNthnA ehEJ2wOOJjaevbc981XgYft0au JZAnqXOxGIfbSMN9F76do0T4 CEBjAJUoFBB6yBF7uV6syIhdjl ogbGVmdDsgdmVydGljYWwtYWxp N391EQHbbItiHrEmkTmprdGw UExyWSv3Z4RhVyiumBP+PC90YW QdKS54xOMqbUCxj1tyzLs5UnCc XDMgUZK1hGdbMRrxt2GzZCBj N83bkVPtc5F4GUFxbKnlnLWkGv GueMU5oD9dJKotivxkz7avpkix Evqqy0kdtt31yD08L09jUIjn RYKaZEGvDTOiEJTgkHwjkg5hhA 9wIi8+DBJygQQ3pZG2gX1rHQFw HeS6ZYigB714HaVgqIHmOnbn z1lci8giuIs0SvU4NKUoebEmlE jlKIY7k0XlMq37J14oQOqeKOKy PKJcVUGoNNLobHumpq7lhR9h Ii8+ASBjgYA9fEB7lM0uToSgXh T6EDueB236LnMqrTUtWyajW08i N6RozDL+BCMoNou4TNLujRqv RG4fwVYgWXfwEz2tAIE6RzMqDu VxBKheG2MrTHXsfamhcxkbkRT1 HJCgRTYjlI48Li6mzHuvMESe eCKEgS4tubpjn5iycvdhOdHkJH CmOAr8QXy5IJQfsXoqTcZzCLM7 QbX7RDY5qKQohD7plOotbcrv jQ0kH0SnSAIrldqqGl70lQ7xRw CnTgD6FSxrUow+VEhPTUFTLCBD IITPHWDAJSP0B8TdEor6HYUl hGnsEO7hjPCfYKdfCx1xnFkwnT nqMA7oDGXcdilqRBBwfH4aYDUv hLCedNbkDJ5hWMBjgujry986 JiAgWXP0EAXwiSCjZ4YimB4eBl SePTTiATMmV0SrjFFpOJiiZ565 VXueAwH8HFAeorJwU4CzTIXt sDcpFgP4x7X2Iz0aUg1oKh6mTY V9CI15AP15qDYda7P3iDW3J0Rt FTTfpcdhdaysuSS1LPMcHZDh pQ82tSLpTQdjDn2iw2K5p461HO NzPDComS35Lx9zsCdkSTAidFEQ yS6gjrzwm6nptmhuBfUbXOZz WMj2ERq4TLIxiJmeKbVcKYZ0Sx B5HFZ8jBNykO6caGbakpcksJ9r Oyc+EZMiARNmzfO7D2DpPqi9 EIEtkQljVW1xfVMjURwwTd7ibR awkBxvOD2zFKKhirflHGPsoS4q XKXkiVAhmIonAT4kAJEhfakn q999AxDeYEP9AQOysMMvC8OkhH 6mMiImKGYuYFUwL7TkkHRkQZgw R054TWogPwT3PFBihbUaZ3Ct POIsmAkzEqX7d5N8Vp2YGLqENQ 81XU11hGOod5B2lKT6X5LaPKAj komjqxpgvVH2KRNfRLSkyY81 oUDrCOpwYm2ub8G2r829TQTiPZ IlzO89Hq6doFhrTAXjwVLEfG8f ybcxg7elfgiqCfJdPNVhQGw1 DGa4TUNmlKkjScRnKBD0NpH8VZ K2dLRarJ4sdHlxjjxykP0uAcv+ H7U9M1FqDgzjmLY+TF23KNTf MJ87bHYcvTMeg0xcuAe9PzLmZJ XcTOK3eUypNLfmy4LgGWKlB02u vEEva1Z5IAYrqFykrVCdExEr rUO9pZ6cMJnmuqumn4mclcrqPm npu8lcve93eB93B50mSFkbQKBa AYUiJCRzXVVenTqqfs0gpV2h Ii8+VCYxmEV9iNX1tU4dThCpEt B1HThxB858KqCrxVDgNqukx3om d2gxaUn8LiQrFCKrvjLntRzn GYU6t0BsVp96Z26nAGflMQQgLQ XhEQTtXTNqmCvfsm6itP4vGq2+ AS8ut8vpdz66zY51fOY+PHRk CMC6iMxiBAfgZOPcwS6mERwiXu N9LWRfEgJzfV86yOKwTHzcUy0e vAukxOpbJH9fFWNecmgra861 IfLlk6kaTMHtvMWaTNnmYOF3N5 1ju9J5EAQtSJYoKZO9cAI0bB0n bGlnbjogbGVmdDsgdmVydGlj AOpyFWzjZ031FYLmeQarGdUgbS XhJ0fhhaOZYS6oSpfuqIP+PHRk WDL9oCutPKtrNBJthY0mSOSi W8w1CxUaBeK7SOvvQ6NlmeD6HJ UxmQNiYRHiwGKJkU3btlspu5gv jznhIqMbZIEpVZe1TKd2LTOq aYfjCfQcCYM6GvS6KBU6zYFjjW 8opKcjpswweZ7dBvc+RklOOjwv dGQ+JIWuDVA4vAqaQTseREHd mE3xTUCiV8g1DbGdLgT8WUlzB8 ZipiZ6SXQejYSaLGYjpPNFkR6n olnpl2tugkimAnZjBMKvVIk9 AKr4JNBxvOstKgLjJZP6ChR0VC P4tTLogY5edZsnnsuexB8sSxx+ TVJOOjwvdGQ+HBEiGEC8tUer DTbyJSIgzH9bFMVpY0m3AwLeRm O8VIhbQ0DifeI4QSNkyXSzBPSu rPJAmX9pmkovh1elnwseVkLt QVLrBTn2EAs6QIPhiOqaFyTaRO J1VbJ0VFH7jGLdfN3aoEotekiv oL6eYkg+GLQ3BYO7UA70FT18 M9CqYnpznQTbrUD+PHRhYmxlIH xqELBbVRsjKHHcGaAsuYujPK8f Kr5oFRKdAKNetKcfnMXzSsMw b2x (more content not included)... [facility] Consent Formson 10-12-2023 Consent Forms [id number]#1.00OTGTIFF [facility] BUN/Creat Ratioon 10-11-2023 eGFR Non AA 53 mL/min/1.73m2 Invalid Interpretation Code [facility] Comment on above: Performed By: #### 1 [id number] #### [facility] (DEFAULT) [address] [place] [address] 27588 eGFR AA >60 Invalid Interpretation Code [facility] Comment on above: Performed By: #### 1 [id number] #### [facility] (DEFAULT) [address] [place] [address] 16168 Creatinine [Mass/Vol] 1.31 mg/dL High 0.90-1.30 [facility] Comment on above: Performed By: #### 1 [id number] #### [facility] (DEFAULT) [address] [place] [address] Urea nitrogen [Mass/Vol] 25 mg/dL Normal 8-26 [facility] Comment on above: Performed By: #### 1 [id number] #### [facility] (DEFAULT) [address] [place] [address] Urea nitrogen/Creatinine [Mass ratio] 19.0 mg/mg High 4.6-16.2 [facility] Comment on above: Performed By: #### 1 [id number] #### [facility] (DEFAULT) [address] [place] [address] CT Urogramon 10-11-2023 CT Urogram EXAMINATION: CT Urog william HISTORY: Malignant neoplasm of bladder, unspecified. COMPARISON: CT abdomen and CT pelvis studies dated 06/09/2022. TECHNIQUE: CT abdomen and CT pelvis studies were performed without and with the use of intravenous contrast. Multiple axial images were obtained. Reformatted coronal and sagittal images were obtained and reviewed. Dose reduction techniques were achieved by using automated exposure control and/or adjustment of mA and/or kV according to patient size and/or use of iterative reconstruction technique. FINDINGS: ABDOMEN: A few small calcified granulomas in the lower lung hanley. Minimal atelectatic and/or fibrotic changes in the lower lung hanley. Calcified lymph nodes in the mediastinal and bilateral hilar regions likely to granulomatous changes. Mild elevation of the right hemidiaphragm similar to the prior study. Views of the liver and spleen fail to demonstrate evidence of focal mass in either organ. Gallbladder and adrenal glands appear grossly unremarkable. Mild fatty infiltration of the pancreas without focal mass or ductal dilatation. Stomach appears grossly unremarkable. Bowel loops appear grossly unremarkable. Atherosclerotic calcifications within portions of the abdominal aorta. No evidence of aneurysm. No evidence of adenopathy in the retroperitoneum. Findings compatible with bilateral renal cysts which overall appear slightly increased in size compared to the prior exam though not felt to be acutely significant. No evidence of obstructive uropathy. Tiny 2 mm nonobstructive calculus in the inferior left kidney similar to the prior study. PELVIS: Tiny fat-filled umbilical hernia without bowel content similar to the prior study. No evidence of ureteral or bladder calculus. No evidence of obstructive uropathy. Mild wall thickening of the left inferolateral aspect of the bladder somewhat anteriorly which may be related to postprocedural fibrosis. Other possibility difficult to exclude entirely. Findings suggested on series 4 axial image 158 and series 604 coronal image 55. Follow-up as needed. Prostate gland is grossly within normal limits for size. Perirectal fat planes appear grossly intact. Bowel loops appear grossly unremarkable. Atherosclerotic calcifications within portions of the abdominal aorta. No evidence of aneurysm. No evidence of adenopathy. The appendix is not definitely identified, no obvious appendicitis. Mild degenerative changes in the visualized lower dorsal spine with ankylosis. Moderate degenerative changes in the lumbar spine. Multilevel spinal stenosis again noted in the lumbar region. Mild convexity of the lumbar spine to the left. IMPRESSION: CT abdomen and CT pelvis studies demonstrate mild wall thickening of the bladder which may be related to postprocedural fibrosis as noted above. Other possibility difficult to exclude entirely. Follow-up as needed. Findings compatible with bilateral renal cysts as noted above. Small nonobstructing left renal calculus similar to the prior exam. Tiny fat-filled umbilical hernia similar to the prior study. Final Dictated by: Jassi Atkinson MD Dictated DT/TM: 10/13/23 7:18 Signed (Electronic Signature): Jassi Atkinson MD 10/13/23 1:26 pm Technologist: [facility] Provider Orderson 10-03-2023 Provider Orders [id number]#1.00OTGTI FF [facility] Lab - [facility] Lab - AP Results [id number]#1.00OTGTIFF [facility] Coding Summaryon 09-26-2023 Coding Summary HTMLBase 64 ZrvmajkrNJe5oWn+PGhlYWQ+PE 7EVQWaD97cyEPfpH3mV8QUECaM XnatGTVYOAjJDeJvwrKeQD9lnQ NjZXJu IC8+OM9vVXGiZpwoiBIfh1C4gO X5D84oks8vAFwcnKX4JFDbVuXi dfxpv2ptkAs6EQcsDhgyKbVe XEMduM57OQE7pS97Wn63sGNmvR Tmm5kkgGo2KaWkKQTlCAB5aTrn TLmvu1LxYAImO75ybQHuw6Z9 SIDpnNmcxKHhAyGvuLX6dF8aRT zrrsbba9xcbneeKxz3gy50iRYj d9E6tSJ8T0IogpB7NWEsaMNq KjwjuLTMaM7bwruta8ldcfjaVa ZuZTWnCFr6PSd3VFKceJxzFmUn LB50RXX8KWWnjxQtJ4LmREFd gRaiVaA0b1K7Jw8KM3HPRrtvG0 VNTUFSWTwvdGQ+TR86ce64P9Mf TxiwOgw3BDXlFUI6jZO1kN2f NEApULxwe3J9iDD0J0EfwcGfkw 5zt0clEGZmANsnO07krPXmc8X6 ETQwiIE5TZFznKzkGiTpdY90 Oyc+REIdoYmwj4XlZpyjg0ndc1 wbaBo2WaycWPYjzvYciVlmLTY7 e2GaKo7rYHUaaYB2kLI9gI7k ArWsYxT8ASiqY832CiUenFLkXo ciW13rM0FucAA+GYMlYuf5ZQHu yYlhWJ5oC3YuNZCrvvvteVWq cFhwBY1bZZDbbrptFZIaqQ0rKI GaT1o8UiObIdN2FIatN8KpEFOs tnugWn84pF0fMkHfYqI2BEpm I1GqaeA2XLVecIRoKGuxYUR3W1 6nl8S9BEMtNTTcIEK6pBG2vJ0n bGlnbjogbGVmdDsgdmVydGlj VUqcSHidV290CSOzhOwxQzMaJL luZyBEYXRlOiAgMDIvMDYvMjAy NDwvdGQ+WTPwVZX2iXocEUMc dZSiNHpyPi1rsYzndZaoPM5hVK TlvohaAGVkpJ9pNQXnxVSqgJce FU4iOMBifnwyx739JwIsRSC5 RCOqtEMbC7KgaJ9wBqUcFBBzFY MhZ4SlhLMlJBjuH068HNclJiQ2 MSTdqhTsG1LwDAOznUuaAtP9 k5R9Dy3Ky1VwjpofJ1RhqOCrNv RmMabiOTb7F0TtRdhcbRX+PC90 QNRaNS52SGn4XUI6cGxpBQsq SMDpM0IgoD1cFuGwOZQvXJZpBm c+PHRhYmxlIHdpZHRoPScxMDAl TqImaEieSQ8fTx3rXPEfFXDy xMpfpRHrUbLfl0ceMOHyGJkrSF 2kqJsbO1WvwQG7JECmq5c6Lk39 L24uL3PjkPX+DOEpsPN2xRA0 uK3gWtYtGlU6AHaoK202RoThiK WfPvxjh8yad6bvmYs5CpT3TCFj boYofOvfEYE0k1AlFn89U19o IHdpZHRoPSIxNSUiIHZhbGlnbj 4kjY7pKa6+ESKxiNL9kYW3bE0x JyWkBnT4NSclH449OcWakBYm Tbfnu6eyo6mtxDz4WpBeYIWtsy RrtImlHPG4z0JrYl49L4AhaVxt v3VjCcb4ps69wHIsc8P2zRB2 P6KaLSOfialgsCFnlWdnSK4qJT PpmpdwCZYadS3yBVJdB8o0KhJf MnU8IIwyD9GjqpE4ENGeuEYq VBKwyLYJuG4hpohce8coxiqzHv CgBFDgYXn0XAx9ILYjxMenKcBq YEH7QgZ6ZKJ0xDVihD4dlXra iekqeP5fTkg+KYH6dPLwpZSGJA 1lOjwvdGQ+IALwTMS4lUdcILaf CNOajP3mFNDvD2e6IlOpRgO2 TKijX0MjbgU6SGXgfXXtUSOiqL TGoX0vjfcyz4vkaglxTiGmGASn STz6YKf7ZWKhaJhoOrHpTNA7 HbY1VDC2iWTvuZ9nhCsmhkmftQ 9wOyc+CrutnOxvNPM7IPt6Q0Ix Hdx7VECicWdcEB8epKThCOxf Pw0kpGmwpDefCA5tMCUgmuvid7 72VsGet0otOPVhdFYjSVmhTAF1 I23do9Z0YMFiOHAtDSL9pIN1 aK1xjFxoqmtgiUTzdHbhsjAxgD icHNdkBUqkW564CNMsaKqvQtDd OTr7U3WjAez6RODgbXrjBT4d eAPsBExhUu7ayPrjkAwgGD9uIX Wbvxdqa111GzSny7xwPQLtsNLp PUtmVMA5K80zx7D8HGQvRHGb LER3kIU3vE2fpBjefhxrbESkgH pdwqJumPtdTFzjVEdlP748XLLl kNzsRlDozBb2O7LcMax4YHDx bDkdXQ6xuWMpIKfrUx8cdOsywZ fiQY0nFFHzmylhg593HmZtq0kx GBIbyBNtYUhgAWM8W55uy5N7 SJUaUEUoBUL1rPE8bU9gdRzcva ogbGVmdDsgdmVydGljYWwtYWxp U212ETCrwDymAdVshNiwebXh XPmuEAd7N2KlVtoanXE+PC90YW MzNT68iFTnkVOxq9iajAy8DiDn NMOwNKI4oLtlNShdd7CjTUPp P71asCRem3T1HRRdcWeanBTwAo OmgRW9mH5wYLavtrevj0dtpiuy Lqfcc6ecgz64tR88N25wLXgq TWBgBSCxPOPzFMUcjUqrrr2nxO 9wIi8+MGBhcPJ7iDE4fL0sGBTr YyW4GCtbT813OvOxiPAqYgoh m2vzn8jfeOn8CbY9OJRcxhUrbZ zvOGL6j4MxBz53N22xOEkjBVQx YEEnESDmTABbxOewsj0dcE1z Ii8+RGHnyOM5oZB0mS7sVwZkJh S7PJccE256CmEjxOGuAwydQ40z N5YdaEA+YWOaNsr9CVOvhIje BL5udZZlIPebZl9qTBM3ZeLiSu RlMUadH7TvLAGbxfgvmckqxHS7 HYLaNXUhfJ18Sm1khPluFSAw kHQOcI8gagpxy3mpznlzMkVhNS BnMMn9HVs8JBMzzKyjYfEhTIO1 WrF0AKK4iROcoE1woEuebtrm vH8bH3StBFSawfkwTe87xM8vFs WhDjT3YZndRjm+VEhPTUFTLCBD QMXVRFFQREH3S3BeDui5KNBr zFgkEQ1ajMMxLNmjUr7opXilfP njKN3pQLCbteqrJVGcpQ7kUHAl uDAxnPteYY6aSOEihqwhf522 AoEmMCA4FWNmtFQyO5ZanZ0mFv OrKIBpBGSzC8NbrDAgXNvpZ486 UUhgXjF0TLMwsySjH7ZyZULc dNmuGzU8j9W2Qt9oLk9xRg5zAL Y2IT97FS98sEMpj0X3nAU0F2Cm TNRpjkxofggacCZ8JUTyVPTw rG14dPYuPYdeUk6ey6D2l562IR RpEOVxzX38Dn7xaIuxTTIqvATB fT9kbpbtk5gcpljbXjZsQNWm CKg8KCr8OBQyyOtsHiDaALI6Cd Z9AQX3iWNsgI6umCdbysvltP3x Oyc+XNReKYDbudI4Y8ClDlc0 XKLdmUhlRP4ieTHgFNunJy9yyG wzdJonPZ3lEWInswjsGVWvsB3j HLCbaQFdfYcdNK3qEBZkxtrh k363HkQvTUA0BRNkqNKqN6QsbC 1sVoGiWJFwRHUvZ6QriLKlNUhe E036IAriKaI4VZSfceAgU4Mp XNXxsOzzHhR8s9G5Kv6ZLGvELI 37RN44eRCdj4P1mSJ6F1CoWKPx tncgtrabxPX2JSIvABEkdB01 sULxLPuvWw3cm6S0w369EEZgXB HjgH87Pc2thKnwRGOsiXKPqS8o auuoc0asvxrpXfZtAPRwRUg5 IDe3XOBpdXheTcSzGLZ6LxJ4NY P4nCNgvR3mpEnnlxycmV9yHvv+ TFY3HLJ5xfvtckp5E7EbObfa dHI+SS51HXFsCW18sILvaOAdp2 xrdOn7CaHzRZZoXRF4mVhpUAkv e7ZrOLIxT21qnYQpz6H3YPAf qUwjwERdViBtyTS4zR8lLRwmtz ecg3frxlvcMehyu9bmot86iP74 X80sKNxkCTNfWCQbMVHhGWXu hIubsv4sbB2cPd5+OYIyxBE1hO S7wM5cGnKcAcZ5RLheX982KtTx sYSjEketz9hgg8lqbLi9EfFj UJDxmkIyuCcvWBA6i1JpSc02O5 9sIHdpZHRoPSIyMCUiIHZhbGln gd6wuJ4wGi0+RJ2dc9ccnu96 dG72gZZ+MQLwGNC9aLxjTYhyQP CvmV4jTNqsGfE4EEUkNsMvrT48 cOPxDHsmUd1wkKvwjJcoHR9a SLShcvntd137ZvZgc2bdFAHlqA WrRIzoJCH2H26nm6T1IAXvEEZl KLI7hAQ8yI1fbNjuxjvpkJPu fQoahsIaeZvyGCpcDTnhU270NU RbhPcfKxEcsBNbJ3kkvyOQAN3o OjwvdGQ+NUSvHHC2xZkzTIac RMGctG4hPSGvN9z6CyKgNfP1JO baI8RdvdZ2XXYxqRLaBZAobIGG cZ3jsbgow6zuxmwiWmZlKXIs FBl6NMz7PVNhgDytYwShJRD7Oc G6OHW0jADvsU2vaImfnmmlfC7t Oyc+RklOOjwvdGQ+PHRkIHN0 yEtvVYxyGIXmpX0yBRQsL2q1Lp MyCmC4YHjlQ6RmsmT0DSPhlTAz MWBosFHMcL3hxdaiv8ctaopp RoVfRGEhJUu1YHl8XBExoWpxLe ZeUOO8AbF9WNZ4fEVffB8mcTko hrnofA9jFnx+TVJOOjwvdGQ+ HOObAFI5yDmbUYbwVGCxlV4wEX MoO9j1HcBcGhU6MZaaL0TiyhS1 YVGwpENiVNCicJIJqB5njxtb l1gwhlocQsJrGUXjRNo2CJr2HK QspFnmWvDxIXT6XmE1TXX0zAIl wX8jnRxgmyjjlH6fQem+UGF5 TAD4JG10SW77O3GlBqmkrBYiyA U+PHRhYmxlIHdpZHRoPScxMDAl EfMrbZwsYG1zJs0gRYCyXKSv bGx (more content not included)... [facility] - [facility] Lab - AP Results [id number]#1.00OTGTIFF Normal [facility] Lab - [facility] Lab - AP Results [id number]#1.00OTGTIFF Normal [facility] SURGICAL PATHOLOGY REFERENCE LAB CONSULTon 2023 CASE REPORT Normal [facility] Comment on above: Order Comment: Speci men Type: FORMALIN-FIXED PARAFFIN-EMBEDDED TISSUE SPECIMEN Ordering Facility: [facility] Address: [address] [id number] Result Comment: Surg ical Pathology Report Case: [id number] Authorizing Provider: Ivan Barnhart MD Collected: 2023 09:46 AM Ordering Location: [facility] Received: 2023 09:46 AM [facility] Pathologist: Olivier Mina MD Specimen: SLIDE(S), 2 SLIDES [id number] Performed By: #### L [id number] #### [facility] CLIA [id number] [address] [place] [address] [place] CLINICAL HISTORY CONSULT REQUESTED Normal [facility] Comment on above: Order Comment: Speci men Type: FORMALIN-FIXED PARAFFIN-EMBEDDED TISSUE SPECIMEN Ordering Facility: [facility] Address: [address] [place] [address] Performed By: #### L [id number] #### [facility] CLIA [id number] [address] [place] [address] [place] DIAGNOSIS COMMENT Thank you for allowi ng me to review this bladder lesion from an 78-year-old man. 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 Normal [facility] Comment on above: Order Comment: Speci men Type: FORMALIN-FIXED PARAFFIN-EMBEDDED TISSUE SPECIMEN Ordering Facility: [facility] Address: [address] [place] [address] Performed By: #### L [id number] #### [facility] CLIA [id number] [address] [place] [address] OF [facility] FINAL DIAGNOSIS Normal [facility] Comment on above: Order Comment: Speci men Type: FORMALIN-FIXED PARAFFIN-EMBEDDED TISSUE SPECIMEN Ordering Facility: [facility] Address: [address] [place] [id number] Result Comment: [facility]; [place], [place] ([id number], 09/14/23) A. Urinary bladder, biopsy: - Benign nephrogenic adenoma. JKM 2023 Performed By: #### L [id number] #### [facility] CLIA [id number] [address] [place] [address] [place] FINAL PERFORMING LAB Normal [facility] Comment on above: Order Comment: Speci men Type: FORMALIN-FIXED PARAFFIN-EMBEDDED TISSUE SPECIMEN Ordering Facility: [facility] Address: [address] [id number] Result Comment: Diag nostic interpretation performed at [facility], [address] [place] [address] CLIA# [id number] Top Dyeing Machine Tender: Jaylan Mcfadden M.D. Performed By: #### L [id number] #### [facility] CLIA [id number] [address] [place] [address] [place] ECG 12 Leadon 09-20-2023 Sinus bradycardia otherwise normal ECG [facility] Work Phone: Consent Formson 09-15-2023 Consent Forms [id number]#1.00OTGTIFF [facility] MAGR Intraoperative Recordon 09-15-2023 MAGR Intraoperative Record MAGR Intra-Op Record Summary Primary Physician: Ivan Barnhart MD Finalized Date/Time: 09/15/23 14:36:30 Pt. Name: TAURUS GARCIA /Sex: 1945 MALE Med Rec #: [id number] Physician: Ivan Barnhart MD Financial #: [id number] Pt. Type: D Room/Bed: / Admit/Disch: 09/14/23 13:50:55 - 09/14/23 14:45:00 Institution: Case Times MAGR Entry 1 Patient In Room Time 09/14/23 14:25:00 Out Room Time 09/14/23 14:42:00 Anesthesia Start Time 09/14/23 14:25:00 Stop Time 09/14/23 14:42:00 Surgery Start Time 09/14/23 14:35:00 Stop Time 09/14/23 14:39:00 Last Modified By: Monserrat Prince RN 09/14/23 14:44:38 Case Attendance MAGR Entry 1 Entry 2 Entry 3 Case Attendee Ivan Barnhart MD, Kelly RN Radloff, Leigh-Ann CSFA [employer] Role Performed Surgeon - Primary Paint Supervisor Scrub Personnel Time In 09/14/23 14:34:00 09/14/23 14:25:00 09/14/23 14:25:00 Time Out 09/14/23 14:42:00 09/14/23 14:42:00 09/14/23 14:42:00 Procedure Cystoscopy Bladder Cystoscopy Bladder Cystoscopy Bladder Biopsy Biopsy Biopsy Last Modified By: Monserrat Prince RN, Kelly RN Weisenburger, Kelly RN 09/14/23 14:41:36 09/14/23 14:41:36 09/14/23 14:41:36 Entry 4 Entry 5 Case Attendee Nena Wells CST, CST, Barbara RN CSFA Role Performed Scrub Personnel Paint Supervisor Time In 09/14/23 14:25:00 09/14/23 14:25:00 Time Out 09/14/23 14:42:00 09/14/23 14:42:00 Procedure Cystoscopy Bladder Cystoscopy Bladder Biopsy Biopsy Last Modified By: Monserrat Prince RN, Kelly RN 09/14/23 14:41:36 09/14/23 14:41:36 Surgical Procedures MAGR Pre-Care Text: A.20 Verifies operative procedure, surgical site, and laterality Im.150 Develops individualized plan of care Entry 1 Procedure Cystoscopy Bladder Primary Procedure Yes Biopsy Primary Surgeon Ivan Barnhart MD Surgeon Comment CYSTOscopy with BLADDER BIOPSY with fulgeration Start 09/14/23 14:35:00 Stop 09/14/23 14:39:00 Anesthesia Type Local Surgical Service Urology Wound Class Clean-Contaminated Technique Details Closure Technique N/A Entire procedure No was performed via laparoscope or robotic assistance Last Modified By: Monserrat Prince RN 09/14/23 14:41:39 Post-Care Text: O.730 The patient's care is consistent with the individualized perioperative plan of care General Case Data MAGR Pre-Care Text: A.350.1 Classifies surgical wound Entry 1 Case Information OR MAGR OR 05 Case Level Level 2 Wound Class Clean-Contaminated Specialty Urology ASA Class N/A Diagnosis Preop Diagnosis BLADDER CANCER Postop Same As Preop Yes Postop Diagnosis BLADDER CANCER Blunt or No Is the procedure No penetrating injury considered occured prior to Emergent/Urgent? the start of the procedure: Last Modified By: Michelle Laws RN 09/15/23 14:36:28 Post-Care Text: O.760 Patient receives consistent and comparable care regardless of the setting Time Out MAGR Entry 1 Procedure(s) Cystoscopy Bladder Biopsy Time Out Checklist Verifications Patient Verified Yes Allergies Verified Yes Procedure to be Yes Presence of Yes Performed Verified Necessary with Consent Procedural Equipment, Devices, and Implants Verified Site Verification, Yes Site Marking, Site Marking Alternative, and/or Site Marking Exception in Accordance with Facility Policy Anesthesia Review Antibiotic Received n/a All Anesthesia Case does not involve Within an Concerns Addressed an anesthesia Appropriate Time professional Interval Prior to Surgical Incision Surgeon Review Anticipated Blood Yes Loss Risk, Expected Case Duration, and Critical and Non-Routine Steps to be Performed Addressed Nurse Review Team Introductions Yes Equipment Concerns Yes Completed Addressed Fall Risk Concerns Yes Fire Risk Yes Addressed Assessment Completed and Interventions Performed Skin Assessment Yes Diagnostic and No Concerns Addressed Radiological Test Results Displayed are Appropriate and Labeled Skin Prep Allowed n/a Sterilization Yes to Dry Prior to Concerns Addressed Incision Venous n/a Laser Safety n/a Thromboembolism Measures Implemented Prophylaxis Ordered Latex Precautions n/a Other Concerns Yes Implemented Addressed Time Out Ivan Barnhart MD, Time Out Time 09/14/23 14:34:00 Participants Monserrat Prince RN, Larissa Freitas-Jennifer CSFA [employer], Russell [employer], Nena LOPEZ CSFA Last Modified By: Monserrat Prince RN 09/14/23 14:35:45 Patient Positioning MAGR Pre-Care Text: A.280 Identifies baseline musculoskeletal status Im.40 Positions the patient Im.80 Applies safety devices Entry 1 Procedure Cystoscopy Bladder Body Position Supine Biopsy Left Arm Position Resting at Side Right Arm Position Resting at Side Left Leg Position Extended Right Leg Position Extended Feet Uncrossed? Yes Press Points Checked Yes Outcome Met (O.80) (more content not included)... [facility] Provider Orderson 09-15-2023 Provider Orders [id number] [facility] Inpatient Patient Summaryon 09-14-2023 Inpatient [place] [address] Patient Discharge Instructions Name: TAURUS GARCIA : 1945 Patient Address: [address] [place] [address] Primary Care Provider: Name: KOMAL NGUYEN After you are discharged if you find you have any questions, please, call [phone] ext [phone] to speak to a nurse. Discharge Diagnosis: 1:Bladder tumor Prescription Information: If you have been given a prescription for narcotics, seek immediate medical attention if you have any difficulty breathing or any sudden status changes such as confusion and sleepiness. If you or anyone you know is experiencing suicidal thoughts, mental health, alcohol and/or drug addiction problems; contact the [facility] 13/03 Crisis Hotline -Text 4HQXR yf 526908. If you received any narcotics, sedation, or any other medication that causes drowsiness for the next 24 hours, unless otherwise directed: ? Do not drive a car. ? Do not operate machinery such as power tools, lawn mowers, drills, sewing machines, or stoves ? Avoid alcoholic beverages and drugs for allergies, nerves, or sleep ? Do not make important personal or business decisions or sign any legal documents [facility] would like to thank you for allowing us to assist you with your healthcare needs. The following includes patient education materials and information regarding your injury/illness. TAURUS GARCIA has been given the following list of follow-up instructions, prescriptions, and patient education materials: Follow-up Instructions With: Address: When: Ivan Barnhart MD Medications During the course of your visit, your medication list was updated with the most current information. The details of those changes are reflected below: Medications to Continue That Have Not Changed Other Medications amiodarone (amiodarone 200 mg oral tablet) 1 tab(s) Oral (given by mouth) every day. apixaban (Eliquis 5 mg oral tablet) 1 tab(s) Oral (given by mouth) 2 times a day (scheduled). baclofen (baclofen 10 mg oral tablet) 1 tab(s) Oral (given by mouth) 3 times a day (scheduled). furosemide (furosemide 20 mg oral tablet) 1 cap(s) Oral (given by mouth) every day. gabapentin (gabapentin 300 mg oral capsule) 1 cap(s) Oral (given by mouth) every day. hydrALAZINE (hydrALAZINE 50 mg oral tablet) 2 tab(s) Oral (given by mouth) every day. hydrochlorothiazide-triamt erene (hydrochlorothiazide-triam terene 25 mg-37.5 mg oral capsule) 1 cap(s) Oral (given by mouth) every day. lisinopril (lisinopril 20 mg oral tablet) 1 tab(s) Oral (given by mouth) every day. multivitamin (Multivitamin, generic) 1 tab(s) Oral (given by mouth) every day. nebivolol (nebivolol 10 mg oral tablet) 1 tab(s) Oral (given by mouth) every day. omega-3 polyunsaturated fatty acids (Fish Oil 1200 mg oral capsule) 2 tab(s) Oral (given by mouth) every day. potassium chloride (Potassium Chloride (Eqv-K-Tab) 10 mEq oral tablet, extended release) 1 tab(s) Oral (given by mouth) every day. predniSONE (predniSONE 10 mg oral tablet) 1 tab(s) Oral (given by mouth) every day. pyridostigmine (pyridostigmine 60 mg oral tablet) 1 tab(s) Oral (given by mouth) 4 times a day. simvastatin (simvastatin 40 mg oral tablet) 1 tab(s) Oral (given by mouth) once a day (at bedtime). It is important to always keep an active list of medications available so that you can share with other providers and manage your medications appropriately. As an additional courtesy, we are also providing you with your final active medications list that you can keep with you. amiodarone (amiodarone 200 mg oral tablet) 1 tab(s) Oral (given by mouth) every day. apixaban (Eliquis 5 mg oral tablet) 1 tab(s) Oral (given by mouth) 2 times a day (scheduled). baclofen (baclofen 10 mg oral tablet) 1 tab(s) Oral (given by mouth) 3 times a day (scheduled). furosemide (furosemide 20 mg oral tablet) 1 cap(s) Oral (given by mouth) every day. gabapentin (gabapentin 300 mg oral capsule) 1 cap(s) Oral (given by mouth) every day. hydrALAZINE (hydrALAZINE 50 mg oral tablet) 2 tab(s) Oral (given by mouth) every day. hydrochlorothiazide-triamt erene (hydrochlorothiazide-triam terene 25 mg-37.5 mg oral capsule) 1 cap(s) Oral (given by mouth) every day. lisinopril (lisinopril 20 mg oral tablet) 1 tab(s) Oral (given by mouth) every day. multivitamin (Multivitamin, generic) 1 tab(s) Oral (given by mouth) every day. nebivolol (nebivolol 10 mg oral tablet) 1 tab(s) Oral (given by mouth) every day. omega-3 polyunsaturated fatty acids (Fish Oil 1200 mg oral capsule) 2 tab(s) Oral (given by mouth) every day. potassium chloride (Potassium Chloride (Eqv-K-Tab) 10 mEq oral tablet, extended release) 1 tab(s) Oral (given by mouth) every day. predniSONE (predniSONE 10 mg oral tablet) 1 tab(s) Oral (given by mouth) every day. pyridostigmine (pyridost (more content not included)... [facility] 09-14-2023 L Specimen: [id number] Received: 09/15/23 Status: SIMÓN Katz Num: [id number] Spec Type: Surgical Subm Dr: Ivan Barnhart MD Tissues: A Urinary Bladder - biopsy (BLADDER BX) Procedures: HE/2, Gross/Micro L4 Age/ Patient Sex Location Account Attending Physician Taurus Garcia 77/M DOMENIC [id number] Ivan Barnhart MD SPEC NUM: [id number] RECD: 09/15/23-1345 STATUS: SIMÓN KATZ NUM: [id number] SUMI: 09/14/23- SUBM DR: Ivan Barnhart MD ENTERED: 09/15/23-1346 [facility] [address]: Irene,Lab SPEC TYPE: Surgical DEPT: MAG LEAHY ORDERED: HE/2, Gross/Micro L4 ORDERED: HE/2, Gross/Micro L4 Supplemental Report Addendum 1 Entered: 09/22/23-1533 The consult report has has been reviewed and is as follows from the [facility]: A. Urinary bladder, biopsy: -Benign nephrogenic adenoma. The diagnostic comment is as follows: Thank you for allowing me to review this bladder lesion from an 78-year-old man. 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 The consult report was signed by Olivier Houser MD on 2023 at 1215 Addendum Signed (signature on file) Delfino Burks DO 09/22/23 1534 Pathological Diagnosis Bladder, biopsy: - Polypoid fragment of urothelial mucosa with mixed inflammation, favor reactive epithelial features (pending outside consult). - See comment. Specimen: [id number] Received: 09/15/23 Status: SIMÓN Katz Num: [id number] Spec Type: Surgical Subm Dr: Ivan Barnhart MD Tissues: A Urinary Bladder - biopsy (BLADDER BX) Procedures: HE/2, Gross/Micro L4 Patient: Taurus Garcia [id number] (Continued) Specimen: [id number] Received: 09/15/23 (Continued) Pathological Diagnosis (Continued) Signed (signature on file) Delfino Burks DO 09/21/23 1501 Specimen: [id number] Received: 09/15/23 Status: SIMÓN Katz Num: [id number] Spec Type: Surgical Subm Dr: Ivan Barnhart MD Tissues: A Urinary Bladder - biopsy (BLADDER BX) Procedures: HE/2, Gross/Micro L4 Patient: Taurus Garcia [id number] (Continued) Specimen: [id number] Received: 09/15/23-1346 (Continued) Pathological Diagnosis (Continued) Comment: The patient's history of invasive, high-grade, papillary urothelial carcinoma is noted. The present biopsy demonstrates a polypoid fragment of urothelial mucosa with mixed acute and chronic inflammation and reactive epithelial features are favored. This case is pending outside consult and the final result will be issued in an addendum. Clinical Information None provided Gross Description Received in formalin labeled with the patient's name, date of and bladder biopsy is a 0.2 x 0.2 x 0.1 cm soft white-marcelino tissue fragment. Entirely submitted in one cassette labeled A1. CPT Codes 94892 Specimen: [id number] Received: 09/15/23-1345 Status: SIMÓN Katz Num: [id number] Spec Type: Surgical Subm Dr: Ivan Barnhart MD Tissues: A Urinary Bladder - biopsy (BLADDER BX) Procedures: HE/2, Gross/Micro L4 Patient: Taurus Garcia [id number] (Continued) Signed (signature on file) Delfino Burks DO 09/21/23 1501 [facility] MAGR Preoperative Recordon 0 09-14-2023 MAGR Preoperative Record MAGR Pre-Op Record Summary Primary Physician: Ivan Barnhart MD Finalized Date/Time: 09/14/23 15:31:07 Pt. Name: TAURUS GARCIA/Sex: 1945 MALE Med Rec #: [id number] Physician: Ivan Barnhart MD Financial #: [id number] Pt. Type: D Room/Bed: / Admit/Disch: 09/14/23 13:50:55 - Institution: Pre-Op Case Times MAGR Pre-Care Text: Patient will be optimally prepared for surgery. Patient is free from s/s of injury. Provide information to patient/family related to plan of care. Verify patient allergies. Confirm identity and verify consent before the operative or invasive procedure. Entry 1 Patient Arrival Time 09/14/23 13:59:00 Preop Departure 09/14/23 14:23:00 Last Modified By: Kassandra España RN 09/14/23 15:31:03 Post-Care Text: Patient is prepared mentally and physically and is ready for surgery. The patient remains free from s/s of injury. Patient/family express understanding of plan of care and participate in decisions affecting his or her perioperrative plan of care. Allergies documented appropriately. Patient identifiers and consent correct. General Comments: Pt arrives to w ambulatory. PT denies cp, sob, cough or flu like symptoms. PT denies pacemaker/defibilaltor, pt has sleep apnea. Finalized By: Kassandra España RN Document Signatures Signed By: Kassandra España RN 09/14/23 15:31 Normal [facility] Patient Handouton 09-14-2023 Patient Handout Normal [facility] XR C-SPINE COMPLETE 6+ VIEWS on 06-28-2023 XR C-SPINE COMPLETE 6+ VIEWS CLINICAL HISTORY: Neck pain and recent fall around 06/11 into closet door. COMPARISON: NONE. FINDINGS: 8 views including flexion and extension. Status post expansion laminoplasty from C3-C6. There is no acute fracture or subluxation. There is no loss of vertebral body height. There is mild reversal lordotic curvature of the cervical spine, there is grade 1 anterolisthesis of C2 on C3 without significant change between flexion or extension. There is no intervertebral disc space narrowing. The prevertebral tissues are unremarkable. The airway is patent IMPRESSION: Status post expansion laminoplasty from C3-C6. There is grade 1 anterolisthesis of C2 on C3 and there is no change in alignment between flexion or extension. ELECTRONICALLY SIGNED BY: Jacklyn Koo MD Normal Not Available Basic Metabolic Panelon 05-21 Anion gap [Moles/Vol] 9.0 mmol/L Normal 6.0-15.0 [facility] Comment on above: Performed By: #### C BC, BMP ####[facility] [place] [address] [facility] Calcium [Mass/Vol] 8.6 mg/dL Normal 8.6-10.3 [facility] Comment on above: Performed By: #### C BC, BMP ####[facility] [place] [address] [facility] Chloride [Moles/Vol] 104 mmol/L Normal 98-107 [facility] Comment on above: Performed By: #### C BC, BMP ####[place] [address] [place] [address] [facility] CO2 [Moles/Vol] 30.6 mmol/L Normal 21.0-31.0 [facility] Comment on above: Performed By: #### C BC, BMP ####[place] [address] [place] [id number] [facility] Creatinine [Mass/Vol] 0.91 mg/dL Normal 0.70-1.30 [facility] Comment on above: Performed By: #### C BC, BMP ####[place] [address] [place] [id number] [place] Creatinine Clr Calc Pharmacy 89.45 Normal [facility] Comment on above: Result Comment: PERF ORMED BY: [facility] [address] [place] [id number] PATHOLOGIST DISTRIBUTOR OF DIRECTORIES GINA CARDONA M.D. Performed By: #### C BC, BMP ####[place] [address] [place] [id number] [facility] GFR/1.73 sq M.predicted MDRD (S/P/Bld) [Vol rate/Area] mL/min/{1.73_m2} Normal [facility] Comment on above: Performed By: #### C BC, BMP ####[place] [address] [place] [id number] [facility] Glucose [Mass/Vol] 98 mg/dL Normal 70-100 [facility] Comment on above: Result Comment: [place] Glucose Reference Range is dependent on time and content of last meal. Glucose of more than 200 mg/dL in a nonstressed, ambulatory subject supports the diagnosis of Diabetes Mellitus. ADA recommended reference range Performed By: #### C BC, BMP ####[facility] [id number] [place] [id number] [facility] Potassium [Moles/Vol] 3.6 mmol/L Normal 3.5-5.1 [facility] Comment on above: Performed By: #### C BC, BMP ####[facility] [id number] [place] [id number] [facility] Sodium [Moles/Vol] 140 mmol/L Normal 136-145 [facility] Comment on above: Performed By: #### C BC, BMP ####[facility] [id number] [place] [id number] [facility] Urea nitrogen [Mass/Vol] 19 mg/dL Normal 7-25 [facility] Comment on above: Performed By: #### C BC, BMP ####[facility] [id number] [place] [id number] [facility] Basophils Auto (Bld) [#/Vol] Ordered By: Antonia Grier on 05-30-2023 Basophils (Bld) [#/Vol] 0.0 10*3/uL 0.0-0.2 [facility] Basophils/100 WBC Auto (Bld) Ordered By: Antonia Grier on 05-30-2023 Basophils/100 WBC (Bld) 0.2 % . [facility] Calcium [Mass/volume] in Ser um or PlasmaOrdered By: Antonia Grier on 05-30-2023 Calcium [Mass/Vol] 8.6 mg/dL 8.6-10.3 [facility] Carbon dioxide, total [Moles /volume] in Serum or PlasmaOrdered By: Antonia Grier on 05-30-2023 CO2 [Moles/Vol] 30.6 mmol/L 21.0-31.0 [facility] Chloride [Moles/volume] in [place] or PlasmaOrdered By: Antonia Grier on 05-30-2023 Chloride [Moles/Vol] 104 mmol/L 98-107 [facility] Clostridioides difficile tox in B tcdB gene [Presence] in Stool by JAYDE with probe deteOrdered By: Silvestre Gorver on 05-30-2023 C. difficile toxin B tcdB gene JAYDE+probe Ql (Stl) Negative Negative [facility] Comment on above: Testing performed by RT-PCR Clostridium Difficileon 05-21 Clostridium Difficile Negative Normal Negative Fir [facility] Comment on above: Order Comment: > or = to 3 loose/watery stools in the last 24 HRS? N Is patient on promotility agents or tube feeding? N Result Comment: Test ing performed by RT-PCR PERFORMED BY: [facility] [address] [place] [address] PATHOLOGIST DISTRIBUTOR OF DIRECTORIES GINA CARDONA M.D. Performed By: #### G LURAYO #### Point of Care testing , Complete Blood Count Auto Di ffon 05-30-2023 Basophils (Bld) [#/Vol] 0.0 10*3/uL Normal 0.0-0.2 [facility] Comment on above: Result Comment: PERF ORMED BY: [facility] [address] [place] [address] PATHOLOGIST DISTRIBUTOR OF DIRECTORIES GINA CARDONA M.D. Performed By: #### C BC, BMP ####[place] [id number] [facility] Basophils/100 WBC (Bld) 0.2 % Normal . [facility] Comment on above: Performed By: #### C BC, BMP ####[place] [id number] [facility] Eosinophils (Bld) [#/Vol] 0.2 10*3/uL Normal 0.0-0.45 [facility] Comment on above: Performed By: #### C BC, BMP ####[place] [id number] [facility] Eosinophils/100 WBC (Bld) 3.8 % Normal . [facility] Comment on above: Performed By: #### C BC, BMP ####[place] [id number] [facility] Erythrocyte distribution width (RBC) [Ratio] 18.1 % High 12.0-14.8 [facility] Comment on above: Performed By: #### C BC, BMP ####[place] [id number] [facility] Hematocrit (Bld) [Volume fraction] 36.5 % Low 38.8-50.0 [facility] Comment on above: Performed By: #### C BC, BMP ####[place] [id number] [facility] Hemoglobin (Bld) [Mass/Vol] 12.2 g/dL Low 13.0-17.0 [facility] Comment on above: Performed By: #### C BC, BMP ####[address] Lymphocytes (Bld) [#/Vol] 1.7 10*3/uL Normal 1.00-4.8 [facility] Comment on above: Performed By: #### C VERÓNICA, BMP ####[address] Lymphocytes/100 WBC (Bld) 29.7 % Normal . [facility] Comment on above: Performed By: #### C BC, BMP ####[place] [id number] [facility] MCH (RBC) [Entitic mass] 28.7 pg Normal 27.5-35.2 [facility] Comment on above: Performed By: #### C BC, BMP ####[address] MCV (RBC) [Entitic vol] 85.8 fL Normal 83.5-101 [facility] Comment on above: Performed By: #### C BC, BMP ####[place] [id number] [facility] Mean Corpuscular HGB Conc 33.4 g/dL Normal 32.5-35.6 [facility] Comment on above: Performed By: #### C BC, BMP ####[place] [id number] [facility] Monocytes (Bld) [#/Vol] 0.8 10*3/uL Normal 0.0-0.8 [facility] Comment on above: Performed By: #### C BC, BMP ####[facility] [id number] [place] [address] [facility] Monocytes/100 WBC (Bld) 14.8 % Normal . [facility] Comment on above: Performed By: #### C BC, BMP ####[facility] [id number] [place] [address] [facility] Neutrophils (Bld) [#/Vol] 2.9 10*3/uL Normal 1.8-7.7 [facility] Comment on above: Performed By: #### C VERÓNICA, BMP ####[place] [address] [place] [id number] [facility] Neutrophils/100 WBC (Bld) 51.5 % Normal . [facility] Comment on above: Performed By: #### C VERÓNICA, BMP ####[place] [address] [place] [address] [facility] NRBC% 0.2 /100{WBC} Normal 0-0.5 [facility] Comment on above: Performed By: #### C VERÓNICA, BMP ####[place] [place] [address] [facility] Platelet mean volume (Bld) [Entitic vol] 7.9 fL Normal 6.6-10.1 [facility] Comment on above: Performed By: #### C BC, BMP ####[place] [address] [place] [address] [facility] Platelets (Bld) [#/Vol] 258 10*3/uL Normal 150-450 [facility] Comment on above: Performed By: #### C BC, BMP ####[place] [address] [place] [address] [facility] RBC (Bld) [#/Vol] 4.25 10*6/uL Normal 3.90-5.60 [facility] Comment on above: Performed By: #### C BC, BMP ####[place] [place] [address] [facility] WBC (Bld) [#/Vol] 5.6 10*3/uL Normal 4.1-10.5 [facility] Comment on above: Performed By: #### C BC, BMP ####[facility] [id number] [place] [id number] [facility] Creatinine [Mass/volume] in Serum or PlasmaOrdered By: Antonia Grier on 05-30-2023 Creatinine [Mass/Vol] 0.91 mg/dL 0.70-1.30 [facility] Eosinophils Auto (Bld) [#/Vo l]Ordered By: Antonia Grier on 05-30-2023 Eosinophils (Bld) [#/Vol] 0.2 10*3/uL 0.0-0.45 [facility] Eosinophils/100 WBC Auto (Bl d)Ordered By: Antonia Grier on 05-30-2023 Eosinophils/100 WBC (Bld) 3.8 % . [facility] Erythrocyte distribution wid th Auto (RBC) [Ratio]Ordered By: Antonia Grier on 05-30-2023 Erythrocyte distribution width (RBC) [Ratio] 18.1 % 12.0-14.8 [facility] Glucose [Mass/volume] in Ser um or PlasmaOrdered By: Antonia Grier on 05-30-2023 Glucose [Mass/Vol] 98 mg/dL 70-100 [facility] Comment on above: ADA recommended refe rence rangeRandom Glucose Reference Range is dependent on time and content of last meal. Glucose of more than 200 mg/dL in a nonstressed, ambulatory subject supports the diagnosis of Diabetes Mellitus. Hematocrit Auto (Bld) [Volum e fraction]Ordered By: Antonia Grier on 05-30-2023 Hematocrit (Bld) [Volume fraction] 36.5 % 38.8-50.0 [facility] Hemoglobin [Mass/volume] in BloodOrdered By: Antonia Grier 05-30-2023 Hemoglobin (Bld) [Mass/Vol] 12.2 g/dL 13.0-17.0 [facility] Leukocytes [#/volume] correc blessing for nucleated erythrocytes in Blood by Automated counOrdered By: Antonia Grier on 05-30-2023 WBC corrected for nucl RBC Auto (Bld) [#/Vol] 5.6 10*3/uL 4.1-10.5 [facility] Lymphocytes Auto (Bld) [#/Vo l]Ordered By: Antonia Grier on 05-30-2023 Lymphocytes (Bld) [#/Vol] 1.7 10*3/uL 1.00-4.8 [facility] Lymphocytes/100 WBC Auto (Bl d)Ordered By: Antonia Grier on 05-30-2023 Lymphocytes/100 WBC (Bld) 29.7 % . [facility] MCH Auto (RBC) [Entitic mass ]Ordered By: Antonia Grier on 05-30-2023 MCH (RBC) [Entitic mass] 28.7 pg 27.5-35.2 [facility] MCHC Auto (RBC) [Mass/Vol]Or dered By: Antonia Grier on 05-30-2023 MCHC (RBC) [Mass/Vol] 33.4 g/dL 32.5-35.6 [facility] MCV Auto (RBC) [Entitic vol] Ordered By: Antonia Grier on 05-30-2023 MCV (RBC) [Entitic vol] 85.8 fL 83.5-101 [facility] Monocytes Auto (Bld) [#/Vol] Ordered By: Antonia Grier on 05-30-2023 Monocytes (Bld) [#/Vol] 0.8 10*3/uL 0.0-0.8 [facility] Monocytes/100 WBC Auto (Bld) Ordered By: Antonia Grier on 05-30-2023 Monocytes/100 WBC (Bld) 14.8 % . [facility] Neutrophils Auto (Bld) [#/Vo l]Ordered By: Antonia Grier on 05-30-2023 Neutrophils (Bld) [#/Vol] 2.9 10*3/uL 1.8-7.7 [facility] Neutrophils/100 WBC Auto (Bl d)Ordered By: Antonia Grier on 05-30-2023 Neutrophils/100 WBC (Bld) 51.5 % . [facility] No Panel InformationOrdered By: Antonia Grier on 10-10-2023 Estimated GFR (CKD-EPI) > 60.0 mL/Min [facility] Creatinine Clearance (Chem 89.45 [facility] Nucleated erythrocytes [Pres ence] in Blood by Automated countOrdered By: Antonia Grier on 05-30-2023 Nucleated RBC Auto Ql (Bld) 0.2 /100{WBC} 0-0.5 [facility] Platelet mean volume Auto (B ld) [Entitic vol]Ordered By: Antonia Grier on 05-30-2023 Platelet mean volume (Bld) [Entitic vol] 7.9 fL 6.6-10.1 [facility] Platelets Auto (Bld) [#/Vol] Ordered By: Antonia Grier on 05-30-2023 Platelets (Bld) [#/Vol] 258 10*3/uL 150-450 [facility] Potassium [Moles/volume] in Serum or PlasmaOrdered By: Antonia Grier on 05-30-2023 Potassium [Moles/Vol] 3.6 mmol/L 3.5-5.1 [facility] RBC Auto (Bld) [#/Vol]Ordere d By: Antonia Grier on 05-30-2023 RBC (Bld) [#/Vol] 4.25 10*6/uL 3.90-5.60 [facility] Serum or plasma anion gap de terminationOrdered By: Antonia Grier on 05-30-2023 Anion gap [Moles/Vol] 9.0 mmol/L 6.0-15.0 [facility] Sodium [Moles/volume] in Ser um or PlasmaOrdered By: Antonia Grier on 05-30-2023 Sodium [Moles/Vol] 140 mmol/L 136-145 [facility] Urea nitrogen [Mass/volume] in Serum or PlasmaOrdered By: Antonia Grier on 05-30-2023 Urea nitrogen [Mass/Vol] 19 mg/dL 7-25 [facility] WBC Auto (Bld) [#/Vol]Ordere d By: Antonia Grier on 05-30-2023 WBC (Bld) [#/Vol] 5.6 10*3/uL 4.1-10.5 [facility] US venous duplex LE BIon US venous duplex LE BI [place] [address] Ultrasound Report Signed Patient: Taurus Garcia MR#: [id number] : 1945 Acct:[id number] Age/Sex: 77 / M ADM Date: 05/21/23 Loc: Room: [address] [place] [address] Type: ADM IN Attending Dr: Silvestre Grover MD Ordering Provider: Antonia Grier APRN Date of Service: 05/25/23 US/US venous duplex LE BI: pain and edema Copies to: ZACH Huffman MD BILATERAL LOWER EXTREMITY VENOUS DUPLEX INDICATION: Painful swollen legs PROCEDURE: Color-flow duplex scanning is used to interrogate the deep venous system of the right and left lower extremities. The common femoral vein, femoral vein and popliteal vein show good compressibility with normal proximal and distal augmentation. The posterior tibial and peroneal veins are compressible. US/US venous duplex LE BI IMPRESSION: NO EVIDENCE FOR DEEP VEIN THROMBOSIS OR PROXIMAL SUPERFICIAL THROMBOPHLEBITIS IN THE RIGHT OR LEFT LOWER EXTREMITY. Impression dictated by: Aaron Gibson M.D.05/26/2023 2:48 PM Dictation Location: [place] [address] Tech: Kathy Gibson Transcribed By: KRISSY 05/26/23 1448 Dictated By: Aaron Gibson MD 05/26/23 1447 Signed By: 05/26/23 1448 Normal [facility] Alanine aminotransferase [En zymatic activity/volume] in Serum or PlasmaOrdered By: Silvestre Grover on 05-22-2023 ALT [Catalytic activity/Vol] 30 U/L 7-52 [facility] Albumin [Mass/volume] in Ser um or Plasma by Bromocresol green (BCG) dye binding methoOrdered By: Silvestre Grover on 05-22-2023 Albumin BCG dye [Mass/Vol] 2.5 g/dL 3.5-5.7 [facility] Alkaline phosphatase [Enzyma tic activity/volume] in Serum or PlasmaOrdered By: Silvestre Grover on 05-22-2023 ALP [Catalytic activity/Vol] 69 U/L 34-104 [facility] Aspartate aminotransferase [ Enzymatic activity/volume] in Serum or PlasmaOrdered By: Silvestre Grover on 05-22-2023 AST [Catalytic activity/Vol] 34 U/L 13-39 [facility] Bilirubin.total [Mass/volume ] in Serum or PlasmaOrdered By: Silvestre Grover on 05-22-2023 Bilirubin [Mass/Vol] 0.6 mg/dL 0.3-1.0 [facility] Complete Blood Count Auto Di ffon 05-22-2023 Basophils (Bld) [#/Vol] 0.0 10*3/uL Normal 0.0-0.2 [facility] Comment on above: Result Comment: PERF ORMED BY: [facility] [address] [place] [address] PATHOLOGIST DISTRIBUTOR OF DIRECTORIES GINA CARDONA M.D. Performed By: #### C MP, PAB, CBC ####[address] Basophils/100 WBC (Bld) 0.3 % Normal . [facility] Comment on above: Performed By: #### C MP, PAB, CBC ####[address] Eosinophils (Bld) [#/Vol] 0.4 10*3/uL Normal 0.0-0.45 [facility] Comment on above: Performed By: #### C MP, PAB, CBC ####[address] Eosinophils/100 WBC (Bld) 5.4 % Normal . [facility] Comment on above: Performed By: #### C MP, PAB, CBC ####[address] Erythrocyte distribution width (RBC) [Ratio] 18.1 % High 12.0-14.8 [facility] Comment on above: Performed By: #### C MP, PAB, CBC ####[address] Hematocrit (Bld) [Volume fraction] 38.0 % Low 38.8-50.0 [facility] Comment on above: Performed By: #### C MP, PAB, CBC ####[address] Hemoglobin (Bld) [Mass/Vol] 12.4 g/dL Low 13.0-17.0 [facility] Comment on above: Performed By: #### C MP, PAB, CBC ####[address] Lymphocytes (Bld) [#/Vol] 1.5 10*3/uL Normal 1.00-4.8 [facility] Comment on above: Performed By: #### C MP, PAB, CBC ####[address] Lymphocytes/100 WBC (Bld) 20.4 % Normal . [facility] Comment on above: Performed By: #### C MP, PAB, CBC ####[address] MCH (RBC) [Entitic mass] 28.0 pg Normal 27.5-35.2 [facility] Comment on above: Performed By: #### C MP, PAB, CBC ####[address] MCV (RBC) [Entitic vol] 86.0 fL Normal 83.5-101 [facility] Comment on above: Performed By: #### C MP, PAB, CBC ####[address] Mean Corpuscular HGB Conc 32.5 g/dL Normal 32.5-35.6 [facility] Comment on above: Performed By: #### C MP, PAB, CBC ####[address] Monocytes (Bld) [#/Vol] 0.8 10*3/uL Normal 0.0-0.8 [facility] Comment on above: Performed By: #### C MP, PAB, CBC ####[facility] [place] [address] [facility] Monocytes/100 WBC (Bld) 10.8 % Normal . [facility] Comment on above: Performed By: #### C MP, PAB, CBC ####[address] [address] [facility] Neutrophils (Bld) [#/Vol] 4.6 10*3/uL Normal 1.8-7.7 [facility] Comment on above: Performed By: #### C MP, PAB, CBC ####[address] [address] [facility] Neutrophils/100 WBC (Bld) 63.1 % Normal . [facility] Comment on above: Performed By: #### C MP, PAB, CBC ####[address] [address] [facility] NRBC% 0.1 /100{WBC} Normal 0-0.5 [facility] Comment on above: Performed By: #### C MP, PAB, CBC ####[address] [address] [facility] Platelet mean volume (Bld) [Entitic vol] 8.4 fL Normal 6.6-10.1 [facility] Comment on above: Performed By: #### C MP, PAB, CBC ####[address] [address] [facility] Platelets (Bld) [#/Vol] 153 10*3/uL Normal 150-450 [facility] Comment on above: Performed By: #### C MP, PAB, CBC ####[address] [address] [facility] RBC (Bld) [#/Vol] 4.42 10*6/uL Normal 3.90-5.60 [facility] Comment on above: Performed By: #### C MP, PAB, CBC ####[address] [address] [facility] WBC (Bld) [#/Vol] 7.3 10*3/uL Normal 4.1-10.5 [facility] Comment on above: Performed By: #### C MP, PAB, CBC ####[place] [place] [address] [facility] Comprehensive Metabolic Pane rc 05-22-2023 Albumin [Mass/Vol] 2.5 g/dL Low 3.5-5.7 [facility] Comment on above: Performed By: #### C MP, PAB, CBC ####[address] [address] [facility] Albumin/Globulin [Mass ratio] 0.5 {ratio} Normal [facility] Comment on above: Performed By: #### C MP, PAB, CBC ####[address] [address] [facility] ALP [Catalytic activity/Vol] 69 U/L Normal 34-104 [facility] Comment on above: Performed By: #### C MP, PAB, CBC ####[address] [address] [facility] ALT [Catalytic activity/Vol] 30 U/L Normal 7-52 [facility] Comment on above: Performed By: #### C MP, PAB, CBC ####[address] [address] [facility] Anion gap [Moles/Vol] 7.9 mmol/L Normal 6.0-15.0 [facility] Comment on above: Performed By: #### C MP, PAB, CBC ####[address] [address] [facility] AST [Catalytic activity/Vol] 34 U/L Normal 13-39 [facility] Comment on above: Performed By: #### C MP, PAB, CBC ####[address] [address] [facility] Bilirubin [Mass/Vol] 0.6 mg/dL Normal 0.3-1.0 [facility] Comment on above: Performed By: #### C MP, PAB, CBC ####[address] [address] [facility] Calcium [Mass/Vol] 8.1 mg/dL Low 8.6-10.3 [facility] Comment on above: Performed By: #### C SUZANNE PAB, CBC ####[address] Chloride [Moles/Vol] 106 mmol/L Normal 98-107 [facility] Comment on above: Performed By: #### C SUZANNE PAB, CBC ####[address] CO2 [Moles/Vol] 30.8 mmol/L Normal 21.0-31.0 [facility] Comment on above: Performed By: #### C SUZANNE PAB, CBC ####[address] Creatinine [Mass/Vol] 0.83 mg/dL Normal 0.70-1.30 [facility] Comment on above: Performed By: #### C SUZANNE PAB, CBC ####[address] Creatinine Clr Calc Pharmacy 100.28 [facility] Comment on above: Performed By: #### C MADELINE PALACIOS, CBC ####[address] GFR/1.73 sq M.predicted MDRD (S/P/Bld) [Vol rate/Area] mL/min/{1.73_m2} [facility] Comment on above: Performed By: #### C SUZANNE PAB, CBC ####[address] Globulin (S) [Mass/Vol] 4.7 g/dL [facility] Comment on above: Performed By: #### C SUZANNE PAB, CBC ####[address] Glucose [Mass/Vol] 92 mg/dL Normal 70-100 [facility] Comment on above: Result Comment: [place] Glucose Reference Range is dependent on time and content of last meal. Glucose of more than 200 mg/dL in a nonstressed, ambulatory subject supports the diagnosis of Diabetes Mellitus. ADA recommended reference range Performed By: #### C MP, PAB, CBC ####[facility] [place] [address] [facility] Potassium [Moles/Vol] 3.7 mmol/L Normal 3.5-5.1 [facility] Comment on above: Performed By: #### C MP, PAB, CBC ####[address] [place] [id number] [facility] Protein [Mass/Vol] 7.2 g/dL Normal 6.4-8.9 [facility] Comment on above: Performed By: #### C MP, PAB, CBC ####[place] [id number] [facility] Sodium [Moles/Vol] 141 mmol/L Normal 136-145 [facility] Comment on above: Performed By: #### C MP, PAB, CBC ####[place] [id number] [facility] Urea nitrogen [Mass/Vol] 19 mg/dL Normal 7-25 [facility] Comment on above: Performed By: #### C MP, PAB, CBC ####[place] [id number] [facility] Globulin Calc (S) [Mass/Vol] Ordered By: Silvestre Grover on 05-22-2023 Globulin (S) [Mass/Vol] 4.7 g/dL [facility] Prealbuminon 05-22-2023 Prealbumin [Mass/Vol] 11.9 mg/dL Low 17.0-34.0 [facility] Comment on above: Result Comment: PERF ORMED BY: [facility] [address] [place] [id number] PATHOLOGIST DISTRIBUTOR OF [employer]IES GINA CARDONA M.D. Performed By: #### C MP, PAB, CBC ####[address] [place] [place] [id number] [facility] Prealbumin [Mass/volume] in Serum or PlasmaOrdered By: Silvestre Grover on 05-22-2023 Prealbumin [Mass/Vol] 11.9 mg/dL 17.0-34.0 [facility] Protein [Mass/volume] in Ser um or PlasmaOrdered By: Silvestre Grover on 05-22-2023 Protein [Mass/Vol] 7.2 g/dL 6.4-8.9 [facility] Serum or plasma albumin/glob ulin mass ratioOrdered By: Silvestre Grover on 05-22-2023 Albumin/Globulin [Mass ratio] 0.5 {ratio} [facility] Basic Metabolic Panelon 04-23 Anion gap [Moles/Vol] 6.0 mmol/L Normal 6.0-15.0 [facility] Comment on above: Performed By: #### B MP ####[address] [place] [id number] [facility] Calcium [Mass/Vol] 8.1 mg/dL Low 8.6-10.3 [facility] Comment on above: Performed By: #### B MP ####[place] [id number] [facility] Chloride [Moles/Vol] 107 mmol/L Normal 98-107 [facility] Comment on above: Performed By: #### B MP ####[address] [address] [facility] CO2 [Moles/Vol] 33.6 mmol/L High 21.0-31.0 [facility] Comment on above: Performed By: #### B MP ####[address] [place] [address] [facility] Creatinine [Mass/Vol] 0.96 mg/dL Normal 0.70-1.30 [facility] Comment on above: Performed By: #### B MP ####[address] [place] [address] [place] Creatinine Clr Calc Pharmacy 87.95 Normal [facility] Comment on above: Result Comment: PERF ORMED BY: [facility] [address] [place] [address] PATHOLOGIST DISTRI[employer]OR [employer] GINA CARDONA M.D. Performed By: #### B MP ####[address] [place] [id number] [facility] GFR/1.73 sq M.predicted MDRD (S/P/Bld) [Vol rate/Area] mL/min/{1.73_m2} Normal [facility] Comment on above: Performed By: #### B MP ####[address] Glucose [Mass/Vol] 94 mg/dL Normal 70-100 [facility] Comment on above: Result Comment: [facility] Glucose Reference Range is dependent on time and content of last meal. Glucose of more than 200 mg/dL in a nonstressed, ambulatory subject supports the diagnosis of Diabetes Mellitus. ADA recommended reference range Performed By: #### B MP ####[address] Potassium [Moles/Vol] 3.6 mmol/L Normal 3.5-5.1 [facility] Comment on above: Performed By: #### B MP ####[address] Sodium [Moles/Vol] 143 mmol/L Normal 136-145 [facility] Comment on above: Performed By: #### B MP ####[address] Urea nitrogen [Mass/Vol] 26 mg/dL High 7-25 [facility] Comment on above: Performed By: #### B MP ####[address] Basophils Auto (Bld) [#/Vol] Ordered By: Donita Patti on 05-20-2023 Basophils (Bld) [#/Vol] 0.0 10*3/uL 0.0-0.2 [facility] Basophils/100 WBC Auto (Bld) Ordered By: Donita Patti on 05-20-2023 Basophils/100 WBC (Bld) 0.3 % . [facility] Calcium [Mass/volume] in Ser um or PlasmaOrdered By: Donita Patti on 05-20-2023 Calcium [Mass/Vol] 8.1 mg/dL 8.6-10.3 [facility] Carbon dioxide, total [Moles /volume] in Serum or PlasmaOrdered By: Donita Armstrong on 05-20-2023 CO2 [Moles/Vol] 33.6 mmol/L 21.0-31.0 [facility] Chloride [Moles/volume] in [place] or PlasmaOrdered By: Donita Armstrong on 05-20-2023 Chloride [Moles/Vol] 107 mmol/L 98-107 [facility] Complete Blood Count Auto Di ffon 05-20-2023 Basophils (Bld) [#/Vol] 0.0 10*3/uL Normal 0.0-0.2 [facility] Comment on above: Result Comment: PERF ORMED BY: [place] [address] PATHOLOGIST DISTRIBUTOR [employer]IES GINA CARDONA M.D. Performed By: #### R ARJUN K #### [facility] [address] [place] [address] Basophils/100 WBC (Bld) 0.3 % Normal . [facility] Comment on above: Performed By: #### lEder Wong #### [facility] [address] [place] [address] [place] Eosinophils (Bld) [#/Vol] 0.6 10*3/uL High 0.0-0.45 [facility] Comment on above: Performed By: #### Elder DÍAZ K #### [facility] [address] [place] [address] Eosinophils/100 WBC (Bld) 10.4 % Normal . [facility] Comment on above: Performed By: #### Elder Wong #### [facility] [address] [place] [address] Erythrocyte distribution width (RBC) [Ratio] 17.8 % High 12.0-14.8 [facility] Comment on above: Performed By: #### R ARJUN K #### [facility] [address] [place] [address] Hematocrit (Bld) [Volume fraction] 36.9 % Low 38.8-50.0 [facility] Comment on above: Performed By: #### Elder Wong #### [facility] [address] Hemoglobin (Bld) [Mass/Vol] 12.0 g/dL Low 13.0-17.0 [facility] Comment on above: Performed By: #### Elder Wong #### [facility] [address] Lymphocytes (Bld) [#/Vol] 1.3 10*3/uL Normal 1.00-4.8 [facility] Comment on above: Performed By: #### Elder Wong #### [facility] [address] Lymphocytes/100 WBC (Bld) 22.4 % Normal . [facility] Comment on above: Performed By: #### Elder Wong #### [address] MCH (RBC) [Entitic mass] 27.9 pg Normal 27.5-35.2 [facility] Comment on above: Performed By: #### Elder Wong #### [facility] [address] MCV (RBC) [Entitic vol] 85.6 fL Normal 83.5-101 [facility] Comment on above: Performed By: #### Elder Wong #### [address] Mean Corpuscular HGB Conc 32.6 g/dL Normal 32.5-35.6 [facility] Comment on above: Performed By: #### Elder Wong #### [facility] [address] [place] [address] [place] Monocytes (Bld) [#/Vol] 0.5 10*3/uL Normal 0.0-0.8 [facility] Comment on above: Performed By: #### Elder Wong #### [facility] [address] [place] [address] [place] Monocytes/100 WBC (Bld) 8.4 % Normal . [facility] Comment on above: Performed By: #### Elder Wong #### [facility] [address] [place] [address] [place] Neutrophils (Bld) [#/Vol] 3.5 10*3/uL Normal 1.8-7.7 [facility] Comment on above: Performed By: #### Elder Wong #### [facility] [address] [place] [address] [place] Neutrophils/100 WBC (Bld) 58.5 % Normal . [facility] Comment on above: Performed By: #### R ARJUN Wong #### [facility] [address] NRBC% 0.4 /100{WBC} Normal 0-0.5 [facility] Comment on above: Performed By: #### R ARJUN Wong #### [facility] [address] Platelet mean volume (Bld) [Entitic vol] 8.5 fL Normal 6.6-10.1 [facility] Comment on above: Performed By: #### Elder Wong #### [facility] [address] [place] [address] [place] Platelets (Bld) [#/Vol] 134 10*3/uL Low 150-450 [facility] Comment on above: Performed By: #### Elder Wong #### [facility] [address] [place] [address] [place] RBC (Bld) [#/Vol] 4.31 10*6/uL Normal 3.90-5.60 [facility] Comment on above: Performed By: #### Elder Wong #### [facility] [address] [place] [address] [place] WBC (Bld) [#/Vol] 6.0 10*3/uL Normal 4.1-10.5 [facility] Comment on above: Performed By: #### Elder Wong #### [facility] [address] [place] [address] [place] Creatinine [Mass/volume] in Serum or PlasmaOrdered By: Donita Armstrong on 05-20-2023 Creatinine [Mass/Vol] 0.96 mg/dL 0.70-1.30 [facility] Eosinophils Auto (Bld) [#/Vo l]Ordered By: Donita Armstrong on 05-20-2023 Eosinophils (Bld) [#/Vol] 0.6 10*3/uL 0.0-0.45 [facility] Eosinophils/100 WBC Auto (Bl d)Ordered By: Donita Armstrong on 05-20-2023 Eosinophils/100 WBC (Bld) 10.4 % . [facility] Erythrocyte distribution wid th Auto (RBC) [Ratio]Ordered By: Donita Armstrong on 05-20-2023 Erythrocyte distribution width (RBC) [Ratio] 17.8 % 12.0-14.8 [facility] Glucose [Mass/volume] in Ser um or PlasmaOrdered By: Donita Armstrong on 05-20-2023 Glucose [Mass/Vol] 94 mg/dL 70-100 [facility] Comment on above: ADA recommended refe rence rangeRandom Glucose Reference Range is dependent on time and content of last meal. Glucose of more than 200 mg/dL in a nonstressed, ambulatory subject supports the diagnosis of Diabetes Mellitus. Hematocrit Auto (Bld) [Volum e fraction]Ordered By: Donita Armstrong on 05-20-2023 Hematocrit (Bld) [Volume fraction] 36.9 % 38.8-50.0 [facility] Hemoglobin [Mass/volume] in BloodOrdered By: Donita Armstrong on 05-20-2023 Hemoglobin (Bld) [Mass/Vol] 12.0 g/dL 13.0-17.0 [facility] Leukocytes [#/volume] correc blessing for nucleated erythrocytes in Blood by Automated counOrdered By: Donita Armstrong on 05-20-2023 WBC corrected for nucl RBC Auto (Bld) [#/Vol] 6.0 10*3/uL 4.1-10.5 [facility] Lymphocytes Auto (Bld) [#/Vo l]Ordered By: Donita Armstrong on 05-20-2023 Lymphocytes (Bld) [#/Vol] 1.3 10*3/uL 1.00-4.8 [facility] Lymphocytes/100 WBC Auto (Bl d)Ordered By: Donita Armstrong on 05-20-2023 Lymphocytes/100 WBC (Bld) 22.4 % . [facility] MCH Auto (RBC) [Entitic mass ]Ordered By: Donita Armstrong on 05-20-2023 MCH (RBC) [Entitic mass] 27.9 pg 27.5-35.2 [facility] MCHC Auto (RBC) [Mass/Vol]Or dered By: Donita Patti on 05-20-2023 MCHC (RBC) [Mass/Vol] 32.6 g/dL 32.5-35.6 [facility] MCV Auto (RBC) [Entitic vol] Ordered By: Donita Armstrong on 05-20-2023 MCV (RBC) [Entitic vol] 85.6 fL 83.5-101 [facility] Monocytes Auto (Bld) [#/Vol] Ordered By: Donita Armstrong on 05-20-2023 Monocytes (Bld) [#/Vol] 0.5 10*3/uL 0.0-0.8 [facility] Monocytes/100 WBC Auto (Bld) Ordered By: Donita Armstrong on 05-20-2023 Monocytes/100 WBC (Bld) 8.4 % . [facility] Neutrophils Auto (Bld) [#/Vo l]Ordered By: Donita Armstrong on 05-20-2023 Neutrophils (Bld) [#/Vol] 3.5 10*3/uL 1.8-7.7 [facility] Neutrophils/100 WBC Auto (Bl d)Ordered By: Donita Armstrong on 05-20-2023 Neutrophils/100 WBC (Bld) 58.5 % . [facility] No Panel InformationOrdered By: Donita Armstrong on 05-20-2023 Estimated GFR (CKD-EPI) > 60.0 mL/Min [facility] Creatinine Clearance (Chem 87.95 [facility] Nucleated erythrocytes [Pres ence] in Blood by Automated countOrdered By: Donita rAmstrong on 05-20-2023 Nucleated RBC Auto Ql (Bld) 0.4 /100{WBC} 0-0.5 [facility] Platelet mean volume Auto (B ld) [Entitic vol]Ordered By: Donita Patti on 05-20-2023 Platelet mean volume (Bld) [Entitic vol] 8.5 fL 6.6-10.1 [facility] Platelets Auto (Bld) [#/Vol] Ordered By: Donita Patti on 05-20-2023 Platelets (Bld) [#/Vol] 134 10*3/uL 150-450 [facility] Potassium [Moles/volume] in Serum or PlasmaOrdered By: Donita Patti on 05-20-2023 Potassium [Moles/Vol] 3.6 mmol/L 3.5-5.1 [facility] RBC Auto (Bld) [#/Vol]Ordere d By: Donita Patti on 05-20-2023 RBC (Bld) [#/Vol] 4.31 10*6/uL 3.90-5.60 [facility] Serum or plasma anion gap de terminationOrdered By: Donita Patti on 05-20-2023 Anion gap [Moles/Vol] 6.0 mmol/L 6.0-15.0 [facility] Sodium [Moles/volume] in Ser um or PlasmaOrdered By: Donita Patti on 05-20-2023 Sodium [Moles/Vol] 143 mmol/L 136-145 [facility] Urea nitrogen [Mass/volume] in Serum or PlasmaOrdered By: Donita Patti on 05-20-2023 Urea nitrogen [Mass/Vol] 26 mg/dL 7-25 [facility] WBC Auto (Bld) [#/Vol]Ordere d By: Donita Patti on 05-20-2023 WBC (Bld) [#/Vol] 6.0 10*3/uL 4.1-10.5 [facility] Basic Metabolic Panelon 04-22 Anion gap [Moles/Vol] 6.5 mmol/L Normal 6.0-15.0 [facility] Comment on above: Performed By: #### G LULS #### Point of Care testing , Calcium [Mass/Vol] 8.1 mg/dL Low 8.6-10.3 [facility] Comment on above: Performed By: #### G LULS #### Point of Care testing , Chloride [Moles/Vol] 105 mmol/L Normal 98-107 [facility] Comment on above: Performed By: #### G SWAPNALS #### Point of Care testing , CO2 [Moles/Vol] 36.0 mmol/L High 21.0-31.0 [facility] Comment on above: Performed By: #### G LULS #### Point of Care testing , Creatinine [Mass/Vol] 1.11 mg/dL Normal 0.70-1.30 [facility] Comment on above: Performed By: #### G LULS #### Point of Care testing , Creatinine Clr Calc Pharmacy 79.67 [facility] Comment on above: Performed By: #### G LULS #### Point of Care testing , GFR/1.73 sq M.predicted MDRD (S/P/Bld) [Vol rate/Area] mL/min/{1.73_m2} [facility] Comment on above: Performed By: #### G LULS #### Point of Care testing , Glucose [Mass/Vol] 103 mg/dL High 70-100 [facility] Comment on above: Result Comment: [place] Glucose Reference Range is dependent on time and content of last meal. Glucose of more than 200 mg/dL in a nonstressed, ambulatory subject supports the diagnosis of Diabetes Mellitus. ADA recommended reference range Performed By: #### G LULS #### Point of Care testing , Potassium [Moles/Vol] 3.5 mmol/L Normal 3.5-5.1 [facility] Comment on above: Performed By: #### G LULS #### Point of Care testing , Sodium [Moles/Vol] 144 mmol/L Normal 136-145 [facility] Comment on above: Performed By: #### G LULS #### Point of Care testing , Urea nitrogen [Mass/Vol] 32 mg/dL High 7-25 [facility] Comment on above: Performed By: #### G LULS #### Point of Care testing , Clostridioides difficile tox in B tcdB gene [Presence] in Stool by JAYDE with probe deteOrdered By: Suraj Razo on 05-19-2023 C. difficile toxin B tcdB gene JAYDE+probe Ql (Stl) Negative Negative [facility] Comment on above: Testing performed by RT-PCR Clostridium Difficileon 04-22 Clostridium Difficile Negative Normal Negative [facility] Comment on above: Order Comment: > or = to 3 loose/watery stools in the last 24 HRS? Y Is patient on promotility agents or tube feeding? N Result Comment: Test ing performed by RT-PCR PERFORMED BY: [place] [address] PATHOLOGIST DISTRIBUTOR OF DIRECT[employer]IES GINA CARDONA M.D. Performed By: #### C DT ####[address] Complete Blood Count Auto Di ffon 05-19-2023 Basophils (Bld) [#/Vol] 0.0 10*3/uL Normal 0.0-0.2 [facility] Comment on above: Result Comment: PERF ORMED BY: [place] [address] PATHOLOGIST DISTRIBUTOR OF DIRECT[employer]IES GINA CARDONA M.D. Performed By: #### R ARJUN K #### [address] Basophils/100 WBC (Bld) 0.4 % Normal . [facility] Comment on above: Performed By: #### R ARJUN K #### [place] [address] [place] Eosinophils (Bld) [#/Vol] 0.7 10*3/uL High 0.0-0.45 [facility] Comment on above: Performed By: #### R EDCLAUDETTE K #### [address] Eosinophils/100 WBC (Bld) 13.8 % Normal . [facility] Comment on above: Performed By: #### R EDCLAUDETTE K #### [address] Erythrocyte distribution width (RBC) [Ratio] 18.4 % High 12.0-14.8 [facility] Comment on above: Performed By: #### Elder Wong #### [address] Hematocrit (Bld) [Volume fraction] 37.3 % Low 38.8-50.0 [facility] Comment on above: Performed By: #### Elder Wong #### [address] Hemoglobin (Bld) [Mass/Vol] 12.2 g/dL Low 13.0-17.0 [facility] Comment on above: Performed By: #### Elder Wong #### [address] Lymphocytes (Bld) [#/Vol] 1.1 10*3/uL Normal 1.00-4.8 [facility] Comment on above: Performed By: #### Elder Wong #### [address] Lymphocytes/100 WBC (Bld) 22.1 % Normal . [facility] Comment on above: Performed By: #### Elder Wong #### [address] MCH (RBC) [Entitic mass] 27.9 pg Normal 27.5-35.2 [facility] Comment on above: Performed By: #### Elder Wong #### [address] MCV (RBC) [Entitic vol] 85.2 fL Normal 83.5-101 [facility] Comment on above: Performed By: #### Elder Wong #### [address] Mean Corpuscular HGB Conc 32.8 g/dL Normal 32.5-35.6 [facility] Comment on above: Performed By: #### Elder Wong #### [address] Monocytes (Bld) [#/Vol] 0.5 10*3/uL Normal 0.0-0.8 [facility] Comment on above: Performed By: #### Elder Wong #### [facility] [address] Monocytes/100 WBC (Bld) 10.0 % Normal . [facility] Comment on above: Performed By: #### Elder Wong #### [facility] [address] Neutrophils (Bld) [#/Vol] 2.7 10*3/uL Normal 1.8-7.7 [facility] Comment on above: Performed By: #### Elder Wong #### [address] Neutrophils/100 WBC (Bld) 53.7 % Normal . [facility] Comment on above: Performed By: #### Elder Wong #### [address] NRBC% 0.2 /100{WBC} Normal 0-0.5 [facility] Comment on above: Performed By: #### Elder Wong #### [facility] [address] [place] [address] Platelet mean volume (Bld) [Entitic vol] 8.4 fL Normal 6.6-10.1 [facility] Comment on above: Performed By: #### Elder Wong #### [facility] [address] [place] [address] [place] Platelets (Bld) [#/Vol] 125 10*3/uL Low 150-450 [facility] Comment on above: Performed By: #### Elder Wong #### [facility] [address] [place] [address] [place] RBC (Bld) [#/Vol] 4.37 10*6/uL Normal 3.90-5.60 [facility] Comment on above: Performed By: #### Elder DÍAZ K #### [place] [address] [place] WBC (Bld) [#/Vol] 5.1 10*3/uL Normal 4.1-10.5 [facility] Comment on above: Performed By: #### R ARJUN Wong #### [address] Magnesiumon 05-19-2023 Magnesium [Mass/Vol] 2.0 mg/dL Normal 1.9-2.7 [facility] Comment on above: Result Comment: PERF ORMED BY: [place] [address] PATHOLOGIST DISTRIBUTOR OF DIRECTORIES GINA CARDONA M.D. Performed By: #### G LULS #### Point of Care testing , Magnesium [Mass/volume] in [place] or PlasmaOrdered By: Suraj Razo on 05-19-2023 Magnesium [Mass/Vol] 2.0 mg/dL 1.9-2.7 [facility] Complete Blood Count Auto Di ffon 05-18-2023 Basophils (Bld) [#/Vol] 0.0 10*3/uL Normal 0.0-0.2 [facility] Comment on above: Result Comment: PERF ORMED BY: [place] [address] PATHOLOGIST DISTRIBUTOR OF DIRECTORIES GINA CARDONA M.D. Performed By: #### G LULS #### Point of Care testing , Basophils/100 WBC (Bld) 0.6 % Normal . [facility] Comment on above: Performed By: #### G LULS #### Point of Care testing , Eosinophils (Bld) [#/Vol] 0.8 10*3/uL High 0.0-0.45 [facility] Comment on above: Performed By: #### G LULS #### Point of Care testing , Eosinophils/100 WBC (Bld) 17.2 % Normal . [facility] Comment on above: Performed By: #### G LULS #### Point of Care testing , Erythrocyte distribution width (RBC) [Ratio] 18.0 % High 12.0-14.8 [facility] Comment on above: Performed By: #### G LULS #### Point of Care testing , Hematocrit (Bld) [Volume fraction] 38.5 % Low 38.8-50.0 [facility] Comment on above: Performed By: #### Hannah LAURENT #### Point of Care testing , Hemoglobin (Bld) [Mass/Vol] 12.7 g/dL Low 13.0-17.0 [facility] Comment on above: Performed By: #### Hannah BARCENASLS #### Point of Care testing , Lymphocytes (Bld) [#/Vol] 1.0 10*3/uL Normal 1.00-4.8 [facility] Comment on above: Performed By: #### Hannah LAURENT #### Point of Care testing , Lymphocytes/100 WBC (Bld) 21.2 % Normal . [facility] Comment on above: Performed By: #### Hannah BARCENASLS #### Point of Care testing , MCH (RBC) [Entitic mass] 28.0 pg Normal 27.5-35.2 [facility] Comment on above: Performed By: #### Hannah LAURENT #### Point of Care testing , MCV (RBC) [Entitic vol] 85.0 fL Normal 83.5-101 [facility] Comment on above: Performed By: #### Hannah LAURENT #### Point of Care testing , Mean Corpuscular HGB Conc 33.0 g/dL Normal 32.5-35.6 [facility] Comment on above: Performed By: #### Hannah LAURENT #### Point of Care testing , Monocytes (Bld) [#/Vol] 0.4 10*3/uL Normal 0.0-0.8 [facility] Comment on above: Performed By: #### Hannah BARCENASLS #### Point of Care testing , Monocytes/100 WBC (Bld) 9.6 % Normal . [facility] Comment on above: Performed By: #### Hannah BARCENASLS #### Point of Care testing , Neutrophils (Bld) [#/Vol] 2.3 10*3/uL Normal 1.8-7.7 [facility] Comment on above: Performed By: #### Hannah LAURENT #### Point of Care testing , Neutrophils/100 WBC (Bld) 51.4 % Normal . [facility] Comment on above: Performed By: #### Hannah LAURENT #### Point of Care testing , NRBC% 0.3 /100{WBC} Normal 0-0.5 [facility] Comment on above: Performed By: #### Hannah LAURENT #### Point of Care testing , Platelet mean volume (Bld) [Entitic vol] 8.7 fL Normal 6.6-10.1 [facility] Comment on above: Performed By: #### Hannah LAURENT #### Point of Care testing , Platelets (Bld) [#/Vol] 131 10*3/uL Low 150-450 [facility] Comment on above: Performed By: #### Hannah LAURENT #### Point of Care testing , RBC (Bld) [#/Vol] 4.53 10*6/uL Normal 3.90-5.60 [facility] Comment on above: Performed By: #### Hannah LAURENT #### Point of Care testing , WBC (Bld) [#/Vol] 4.5 10*3/uL Normal 4.1-10.5 [facility] Comment on above: Performed By: #### Hannah LAURENT #### Point of Care testing , Basic Metabolic Panelon 04-22 Anion gap [Moles/Vol] 1.7 mmol/L Low 6.0-15.0 [facility] Comment on above: Performed By: #### Elder Wong #### [facility] [address] [place] [address] [place] Calcium [Mass/Vol] 8.3 mg/dL Low 8.6-10.3 [facility] Comment on above: Performed By: #### Elder Wong #### [facility] [address] [place] [address] [place] Chloride [Moles/Vol] 105 mmol/L Normal 98-107 [facility] Comment on above: Performed By: #### Elder Wong #### [facility] [address] [place] [address] [place] CO2 [Moles/Vol] 37.9 mmol/L High 21.0-31.0 [facility] Comment on above: Performed By: #### Elder Wong #### [facility] [address] Creatinine [Mass/Vol] 1.06 mg/dL Normal 0.70-1.30 [facility] Comment on above: Performed By: #### Elder Wong #### [place] [address] [place] Creatinine Clr Calc Pharmacy 83.01 [facility] Comment on above: Performed By: #### Elder Wong #### [place] [address] [place] GFR/1.73 sq M.predicted MDRD (S/P/Bld) [Vol rate/Area] mL/min/{1.73_m2} [facility] Comment on above: Performed By: #### Elder Wong #### [address] Glucose [Mass/Vol] 89 mg/dL Normal 70-100 [facility] Comment on above: Result Comment: [place] Glucose Reference Range is dependent on time and content of last meal. Glucose of more than 200 mg/dL in a nonstressed, ambulatory subject supports the diagnosis of Diabetes Mellitus. ADA recommended reference range Performed By: #### Elder Wong #### [place] [address] [place] Potassium [Moles/Vol] 3.6 mmol/L Normal 3.5-5.1 [facility] Comment on above: Performed By: #### Elder Wong #### [place] [address] [place] Sodium [Moles/Vol] 141 mmol/L Normal 136-145 [facility] Comment on above: Performed By: #### Elder Wong #### [address] Urea nitrogen [Mass/Vol] 40 mg/dL High 7-25 [facility] Comment on above: Performed By: #### Elder Wong #### [facility] [address] [place] [address] Complete Blood Count Auto Di ffon 05-17-2023 Basophils (Bld) [#/Vol] 0.0 10*3/uL Normal 0.0-0.2 [facility] Comment on above: Result Comment: PERF ORMED BY: [place] [address] PATHOLOGIST DISTRIBUTOR OF DIRECTORIES GINA CARDONA M.D. Performed By: #### Elder Wong #### [address] Basophils/100 WBC (Bld) 0.3 % Normal . [facility] Comment on above: Performed By: #### Elder Wong #### [address] Eosinophils (Bld) [#/Vol] 0.3 10*3/uL Normal 0.0-0.45 [facility] Comment on above: Performed By: #### Elder Wong #### [address] Eosinophils/100 WBC (Bld) 7.1 % Normal . [facility] Comment on above: Performed By: #### Elder Wong #### [facility] [address] [place] [address] Erythrocyte distribution width (RBC) [Ratio] 18.3 % High 12.0-14.8 [facility] Comment on above: Performed By: #### Elder Wong #### [facility] [address] [place] [address] Hematocrit (Bld) [Volume fraction] 36.8 % Low 38.8-50.0 [facility] Comment on above: Performed By: #### Elder Wong #### [facility] [address] [place] [address] Hemoglobin (Bld) [Mass/Vol] 12.3 g/dL Low 13.0-17.0 [facility] Comment on above: Performed By: #### Elder Wong #### [facility] [address] [place] [address] [place] Lymphocytes (Bld) [#/Vol] 0.6 10*3/uL Low 1.00-4.8 [facility] Comment on above: Performed By: #### Elder Wong #### [facility] [address] Lymphocytes/100 WBC (Bld) 12.6 % Normal . [facility] Comment on above: Performed By: #### Elder Wong #### [facility] [address] MCH (RBC) [Entitic mass] 28.1 pg Normal 27.5-35.2 [facility] Comment on above: Performed By: #### Elder Wong #### [address] MCV (RBC) [Entitic vol] 84.1 fL Normal 83.5-101 [facility] Comment on above: Performed By: #### Elder Wong #### [address] Mean Corpuscular HGB Conc 33.4 g/dL Normal 32.5-35.6 [facility] Comment on above: Performed By: #### Elder Wong #### [facility] [address] [place] [address] [place] Monocytes (Bld) [#/Vol] 0.3 10*3/uL Normal 0.0-0.8 [facility] Comment on above: Performed By: #### Elder Wong #### [facility] [address] [place] [address] [place] Monocytes/100 WBC (Bld) 7.6 % Normal . [facility] Comment on above: Performed By: #### Elder Wong #### [address] Neutrophils (Bld) [#/Vol] 3.2 10*3/uL Normal 1.8-7.7 [facility] Comment on above: Performed By: #### Elder Wong #### [facility] [address] [place] [address] [place] Neutrophils/100 WBC (Bld) 72.4 % Normal . [facility] Comment on above: Performed By: #### Elder Wong #### [facility] [address] NRBC% 0.5 /100{WBC} Normal 0-0.5 [facility] Comment on above: Performed By: #### Elder Wong #### [facility] [address] Platelet mean volume (Bld) [Entitic vol] 8.6 fL Normal 6.6-10.1 [facility] Comment on above: Performed By: #### Elder Wong #### [facility] [address] Platelets (Bld) [#/Vol] 109 10*3/uL Low 150-450 [facility] Comment on above: Performed By: #### Elder Wong #### [facility] [address] [place] [address] [place] RBC (Bld) [#/Vol] 4.38 10*6/uL Normal 3.90-5.60 [facility] Comment on above: Performed By: #### Elder Wong #### [facility] [address] [place] [address] [place] WBC (Bld) [#/Vol] 4.5 10*3/uL Normal 4.1-10.5 [facility] Comment on above: Performed By: #### Elder Wong #### [facility] [address] [place] [address] [place] Glucose Glucometer (BldC) [M ass/Vol]Ordered By: Suraj Razo on 05-17-2023 Glucose [Mass/Vol] 107 mg/dL [facility] Comment on above: Random Glucose Refer ence Range is dependent on time and content of last meal. Glucose of more than 200 mg/dL in a nonstressed, ambulatory subject supports the diagnosis of Diabetes Mellitus. Glucose Poct Glucometerson 0 05-17-2023 Glucose [Mass/Vol] 107 mg/dL Normal [facility] Comment on above: Result Comment: [facility] Glucose Reference Range is dependent on time and content of last meal. Glucose of more than 200 mg/dL in a nonstressed, ambulatory subject supports the diagnosis of Diabetes Mellitus. PERFORMED BY: [facility] [address] [place] [address] PATHOLOGIST DISTRIBUTOR OF DIRECTORIES GINA CARDONA M.D. Performed By: #### G LULS ####Point of Care testing, Magnesiumon 05-17-2023 Magnesium [Mass/Vol] 2.2 mg/dL Normal 1.9-2.7 [facility] Comment on above: Result Comment: PERF ORMED BY: [facility] [address] [place] [address] PATHOLOGIST DISTRIBUTOR OF DIRECTORIES GINA CARDONA M.D. Performed By: #### B MP, MG, CBC ####[facility] [id number] [place] [id number] [facility] Automated erythrocytes count in urine sediment (number/area)Ordered By: Donita Armstrong on 05-16-2023 RBC Auto (Urine sed) [#/Area] 1-2 [HPF] 0-4 [facility] Automated leukocytes count i n urine sediment (number/area)Ordered By: Donita Armstrong on 05-16-2023 WBC Auto (Urine sed) [#/Area] 1-2 [HPF] 0-4 [facility] Automated urine sediment nabila cium oxalate crystal count by microscopy (number/high powOrdered By: Donita Armstrong on 05-16-2023 Calcium oxalate crystals LM.HPF (Urine sed) [#/Area] 1+ [HPF] [facility] Bacterial blood cultureOrder ed By: Donita Armstrong on 05-16-2023 Bacteria identified Cx Nom (Bld) NO GROWTH 5 DAYS [facility] Bacteria identified Cx Nom (Bld) Staphylococcus sp coag neg [facility] Basic Metabolic Panelon 04-22 Anion gap [Moles/Vol] 3.6 mmol/L Low 6.0-15.0 [facility] Comment on above: Performed By: #### B MP #### [facility] [address] Calcium [Mass/Vol] 8.6 mg/dL Normal 8.6-10.3 [facility] Comment on above: Performed By: #### B MP #### [facility] [address] [place] [address] [place] Chloride [Moles/Vol] 101 mmol/L Normal 98-107 [facility] Comment on above: Performed By: #### B MP #### [facility] [address] CO2 [Moles/Vol] 38.1 mmol/L High 21.0-31.0 [facility] Comment on above: Performed By: #### B MP #### [facility] [address] Creatinine [Mass/Vol] 1.22 mg/dL Normal 0.70-1.30 [facility] Comment on above: Performed By: #### B MP #### [facility] [address] [place] [address] [place] Creatinine Clr Calc Pharmacy 72.13 Normal [facility] Comment on above: Result Comment: PERF ORMED BY: [place] [address] PATHOLOGIST DISTRIBUTOR OF DIRECTORIES GINA CARDONA M.D. Performed By: #### B MP #### [facility] [address] [place] [address] [place] GFR/1.73 sq M.predicted MDRD (S/P/Bld) [Vol rate/Area] mL/min/{1.73_m2} Normal [facility] Comment on above: Performed By: #### B MP #### [facility] [address] Glucose [Mass/Vol] 91 mg/dL Normal 70-100 [facility] Comment on above: Result Comment: [facility] Glucose Reference Range is dependent on time and content of last meal. Glucose of more than 200 mg/dL in a nonstressed, ambulatory subject supports the diagnosis of Diabetes Mellitus. ADA recommended reference range Performed By: #### B MP #### [facility] [address] [place] [id number] [facility] Potassium [Moles/Vol] 3.7 mmol/L Normal 3.5-5.1 [facility] Comment on above: Performed By: #### B MP #### [facility] [address] Sodium [Moles/Vol] 139 mmol/L Normal 136-145 [facility] Comment on above: Performed By: #### B MP #### [facility] [address] Urea nitrogen [Mass/Vol] 35 mg/dL High 7-25 [facility] Comment on above: Performed By: #### B MP #### [facility] [address] Bilirubin Test strip Ql (U)O rdered By: Donita Armstrong on 05-16-2023 Bilirubin Ql (U) Negative Negative [facility] Blood Cultureon 05-16-2023 Bacteria identified Cx Nom (Bld) [employer] BCID Panel results called at 1809 on 05/18/23 Gram Stain Gram Positive Cocci in Clusters ORGANISM: Staphylococcus sp coag neg (O:STACN) Aerobic VIKY Charge (PCMIC38) SUSCEPTIBILITY ORGANISM: O:STACN ANTIBIOTIC INTERPRETATION VIKY Azithromycin R >4 Ciprofloxacin S <1 Daptomycin S 1 Levofloxacin S <1 Linezolid S 2 Oxacillin S <0.25 Penicillin S <0.03 Tetracycline S <4 Trimethoprim/Sulfamethoxaz ole S <0.5 Vancomycin S 1 [employer] BCID Panel results called at 1809 on 05/18/23 Staphylococcus aureus DNA [Presence] by JAYDE with non-probe detection in Positive blood culture Not detected Bacteroides fragilis DNA [Presence] by JAYDE with non-probe detection in Positive blood culture Not detected Shruthi auris DNA [Presence] by JAYDE with non-probe detection in Positive blood culture Not detected Shruthi albicans DNA [Presence] by JAYDE with non-probe detection in Positive blood culture Not detected Acinetobacter calcoaceticus-baumannii complex DNA [Presence] by JAYDE with non-probe detection in Positive blood culture Not detected Cryptococcus neoformans or gattii 9002 Not detected Cephalosporin resistance blaCTX-M gene [Presence] by Molecular method Not Applicable Escherichia coli Not detected Enterobacterales DNA [Presence] by JAYDE with non-probe detection in Positive blood culture Not detected Enterobacter cloacae complex DNA [Presence] by JAYDE with non-probe detection in Positive blood culture Not detected Staphylococcus epidermidis DNA [Presence] by JAYDE with non-probe detection in Positive blood culture Not detected Enterococcus faecalis DNA [Presence] by JAYDE with non-probe detection in Positive blood culture Not detected Enterococcus faecium DNA [Presence] by JAYDE with non-probe detection in Positive blood culture Not detected Shruthi glabrata DNA [Presence] by JAYDE with non-probe detection in Positive blood culture Not detected Haemophilus influenzae (reported as H flu) Not detected Carbapenem resistance blaIMP gene [Presence] by Molecular method Not Applicable Klebsiella aerogenes DNA [Presence] by JAYDE with non-probe detection in Positive blood culture Not detected Klebsiella pneumoniae+Klebsiella variicola+Klebsiella quasipneumoniae DNA [Presence] by JAYDE with non-probe detection in Positive blood culture Not detected Klebsiella oxytoca DNA [Presence] by JAYDE with non-probe detection in Positive blood culture Not detected Carbapenem resistance blaKPC gene [Presence] by Molecular method Not Applicable Shruthi krusei DNA [Presence] by JAYDE with non-probe detection in Positive blood culture Not detected Listeria monocytogenes (reported as listeriosis) Not detected Staphylococcus lugdunensis DNA [Presence] by JAYDE with non-probe detection in Positive blood culture Not detected Methicillin resistance mecA+mecC genes+SCCmec+OrfX junction [Presence] by Molecular method Not Applicable Carbapenem resistance blaNDM gene [Presence] by Molecular method Not Applicable Neisseria meningitidis - reported as meningococcal disease Not detected Carbapenem resistance renata OXA-48-like gene [Presence] by Molecular method Not Applicable Shruthi parapsilosis DNA [Presence] by JAYDE with non-probe detection in Positive blood culture Not detected Streptococcus pneumoniae - reported at IS Not detected Proteus sp DNA [Presence] by JAYDE with non-probe detection in Positive blood culture Not detected Pseudomonas aeruginosa DNA [Presence] by JAYDE with non-probe detection in Positive blood culture Not detected Salmonella sp DNA [Presence] by JAYDE with non-probe detection in Positive blood culture Not detected Serratia marcescens DNA [Presence] by JAYDE with non-probe detection in Positive blood culture Not detected Staphylococcus sp DNA [Presence] by JAYDE with non-probe detection in Positive blood culture Detected Stenotrophomonas maltophilia DNA [Presence] by JAYDE with non-probe detection in Positive blood culture Not detected Group A (Streptococcus pyogenes) [id number] Not detected Group B Strep (Streptococcus agalactiae) Not detected Streptococcus sp DNA [Presence] by JAYDE with non-probe detection in Positive blood culture Not detected Shruthi tropicalis DNA [Presence] by JAYDE with non-probe detection in Positive blood culture Not detected Vancomycin resistance Dinora + vanB genes [Presence] by Molecular method Not Applicable Carbapenem resistance blaVIM gene [Presence] by Molecular method Not Applicable Colistin resistance mcr-1 gene [Presence] by Molecular method Not Applicable Methicillin resistance mecA+mecC genes [Presence] in Isolate or Specimen by Molecular genetics method Not Applicable RESIS. GENE COMMENT 1 Antimicrobial resistance can occur via multiple RESIS. GENE COMMENT 2 mechanisms. A Not Detected result for antimicrobial RESIS. GENE COMMENT 3 resistance gene(s) does not indicate an (more content not included)... Normal [facility] Comment on above: Performed By: #### R ARJUN K #### [facility] [address] [place] [address] Bacteria identified Cx Nom (Bld) NO GROWTH 5 DAYS PERFORMED BY: [place] [address] PATHOLOGIST DISTRIBUTOR OF DIRECTORIES GIAN CARDONA M.D. [facility] Comment on above: Performed By: #### R ARJUN K #### [facility] [address] [place] [address] [place] Color Auto (U)Ordered By: He idi Patti on 05-16-2023 Color (U) Yellow Yellow [facility] Complete Blood Count Auto Di ffon 05-16-2023 Basophils (Bld) [#/Vol] 0.0 10*3/uL Normal 0.0-0.2 [facility] Comment on above: Result Comment: PERF ORMED BY: [place] [address] PATHOLOGIST DISTRIBUTOR OF DIRECTORIES GINA CARDONA M.D. Performed By: #### C BC ####[address] [address] [facility] Basophils/100 WBC (Bld) 0.3 % Normal . [facility] Comment on above: Performed By: #### C BC ####[address] [address] [facility] Eosinophils (Bld) [#/Vol] 0.2 10*3/uL Normal 0.0-0.45 [facility] Comment on above: Performed By: #### C BC ####[address] [address] [facility] Eosinophils/100 WBC (Bld) 4.2 % Normal . [facility] Comment on above: Performed By: #### C BC ####[place] [id number] [facility] Erythrocyte distribution width (RBC) [Ratio] 18.3 % High 12.0-14.8 [facility] Comment on above: Performed By: #### C BC ####[address] [address] [facility] Hematocrit (Bld) [Volume fraction] 39.8 % Normal 38.8-50.0 [facility] Comment on above: Performed By: #### C BC ####[address] [address] [facility] Hemoglobin (Bld) [Mass/Vol] 13.0 g/dL Normal 13.0-17.0 [facility] Comment on above: Performed By: #### C BC ####[address] [address] [facility] Lymphocytes (Bld) [#/Vol] 0.4 10*3/uL Low 1.00-4.8 [facility] Comment on above: Performed By: #### C BC ####[address] [address] [facility] Lymphocytes/100 WBC (Bld) 7.8 % Normal . [facility] Comment on above: Performed By: #### C BC ####[address] [address] [facility] MCH (RBC) [Entitic mass] 27.7 pg Normal 27.5-35.2 [facility] [facility] Comment on above: Performed By: #### C BC ####[address] [address] [facility] MCV (RBC) [Entitic vol] 84.7 fL Normal 83.5-101 [facility] Comment on above: Performed By: #### C BC ####[place] [id number] [facility] Mean Corpuscular HGB Conc 32.7 g/dL Normal 32.5-35.6 [facility] Comment on above: Performed By: #### C BC ####[place] [id number] [facility] Monocytes (Bld) [#/Vol] 0.3 10*3/uL Normal 0.0-0.8 [facility] Comment on above: Performed By: #### C BC ####[place] [id number] [facility] Monocytes/100 WBC (Bld) 5.0 % Normal . [facility] Comment on above: Performed By: #### C BC ####[place] [id number] [facility] Neutrophils (Bld) [#/Vol] 4.4 10*3/uL Normal 1.8-7.7 [facility] Comment on above: Performed By: #### C BC ####[place] [id number] [facility] Neutrophils/100 WBC (Bld) 82.7 % Normal . [facility] Comment on above: Performed By: #### C BC ####[place] [id number] [facility] NRBC% 0.5 /100{WBC} Normal 0-0.5 [facility] Comment on above: Performed By: #### C BC ####[place] [id number] [facility] Platelet mean volume (Bld) [Entitic vol] 9.3 fL Normal 6.6-10.1 [facility] Comment on above: Performed By: #### C BC ####[place] [id number] [place] [id number] [facility] Platelets (Bld) [#/Vol] 114 10*3/uL Low 150-450 [facility] Comment on above: Performed By: #### C BC ####[place] [id number] [facility] RBC (Bld) [#/Vol] 4.70 10*6/uL Normal 3.90-5.60 [facility] Comment on above: Performed By: #### C BC ####[place] [id number] [place] [id number] [facility] WBC (Bld) [#/Vol] 5.4 10*3/uL Normal 4.1-10.5 [facility] Comment on above: Performed By: #### C BC ####[place] [id number] [facility] Creatine Kinaseon 05-16-2023 CK [Catalytic activity/Vol] 175 U/L Normal 30-223 [facility] Comment on above: Order Comment: HEATHER vines AB 1445 Result Comment: PERF ORMED BY: [facility] [address] [place] [address] PATHOLOGIST DISTRIBUTOR OF DIRECTORIES GINA CARDONA M.D. Performed By: #### C K ####[place] [id number] [facility] Creatine kinase [Enzymatic a ctivity/volume] in Serum or PlasmaOrdered By: Jamel Packer on 05-16-2023 CK [Catalytic activity/Vol] 175 U/L 30-223 [facility] Dipstick and Microscopicon 0 05-16-2023 Appearance (U) Clear Normal Clear [facility] Comment on above: Order Comment: Name Collection Type:: Harrell Catheter Performed By: #### G LURAYO #### Point of Care testing , Bacteria,Urine None Seen Normal None Seen [facility] Comment on above: Order Comment: Name Collection Type:: Harrell Catheter Performed By: #### G LULS #### Point of Care testing , Bilirubin,Urine Negative Normal Negative [facility] Comment on above: Order Comment: Name Collection Type:: Harrell Catheter Performed By: #### G LULS #### Point of Care testing , Calcium Oxalate Crystals,Urine 1+ Normal [facility] Comment on above: Order Comment: Name Collection Type:: Harrell Catheter Performed By: #### G LULS #### Point of Care testing , Color (U) Yellow Normal Yellow [facility] Comment on above: Order Comment: Name Collection Type:: Harrell Catheter Performed By: #### G LULS #### Point of Care testing , Glucose Ql (U) Normal Normal Normal [facility] Comment on above: Order Comment: Name Collection Type:: Harrell Catheter Performed By: #### G LULS #### Point of Care testing , Hyaline Casts,Urine 9-19 High 0-8 [facility] Comment on above: Order Comment: Name Collection Type:: Harrell Catheter Performed By: #### G LULS #### Point of Care testing , Ketones Ql (U) Negative Normal Negative [facility] Comment on above: Order Comment: Name Collection Type:: Harrell Catheter Performed By: #### G LULS #### Point of Care testing , Leukocyte esterase Test strip Ql (U) 1+ High Negative [facility] Comment on above: Order Comment: Name Collection Type:: Harrell Catheter Performed By: #### G LULS #### Point of Care testing , Nitrite,Urine Negative Normal Negative [facility] Comment on above: Order Comment: Name Collection Type:: Harrell Catheter Performed By: #### G LULS #### Point of Care testing , Occult Blood,Urine Negative Normal Negative [facility] Comment on above: Order Comment: Name Collection Type:: Harrell Catheter Result Comment: PERF ORMED BY: [facility] [address] [place] [address] PATHOLOGIST DISTRIBUTOR OF DIRECT[employer]IES GINA CARDONA M.D. Performed By: #### G LULS #### Point of Care testing , pH (U) 5.5 [pH] Normal 5.0-9.0 [facility] Comment on above: Order Comment: Name Collection Type:: Harrell Catheter Performed By: #### G LULS #### Point of Care testing , Protein (U) [Mass/Vol] 30 mg/dL High Negative [facility] Comment on above: Order Comment: Name Collection Type:: Harrell Catheter Performed By: #### G LULS #### Point of Care testing , RBC,Urine 1-2 Normal 0-4 [facility] Comment on above: Order Comment: Name Collection Type:: Harrell Catheter Performed By: #### G LULS #### Point of Care testing , Specificy Paron,Urine 1.026 Normal 1.001-1.03 0 [facility] Comment on above: Order Comment: Name Collection Type:: Harrell Catheter Performed By: #### G LULS #### Point of Care testing , Squamous Epithelial Cell,Urine 0-1 Normal 0-2 [facility] Comment on above: Order Comment: Name Collection Type:: Harrell Catheter Performed By: #### G LULS #### Point of Care testing , Urobilinogen,Urine Normal Normal Normal [facility] Comment on above: Order Comment: Name Collection Type:: Harrell Catheter Performed By: #### G LULS #### Point of Care testing , WBC,Urine 1-2 Normal 0-4 [facility] Comment on above: Order Comment: Name Collection Type:: Harrell Catheter Performed By: #### G LULS #### Point of Care testing , Yeast,Urine None Seen Normal None Seen [facility] Comment on above: Order Comment: Name Collection Type:: Harrell Catheter Result Comment: PERF ORMED BY: [address] [address] PATHOLOGIST DISTRIBUTOR OF DIRECT[employer]IES GINA CARDONA M.D. Performed By: #### G LULS #### Point of Care testing , ECG 12 lead ECGon 05-16-2023 ECG 12 lead ECG [facility] Main [address] [address] Electrocardiograph Report Signed Patient: Taurus Garcia MR#: [id number] : 1945 Acct:[id number] Age/Sex: 77 / M ADM Date: 05/10/23 Loc: Room: [address] [place] [address] Type: DIS IN Attending Dr: Chau Lara MD Ordering Provider: Chau Lara MD Date of Service: 05/16/23 ECG/ECG 12 lead ECG: prn EKG Copies to: Test Reason : Blood Pressure : / mmHG Vent. Rate : 127 BPM Atrial Rate : 312 BPM P-R Int : 000 ms QRS Dur : 088 ms QT Int : 344 ms P-R-T Axes : 000 023 033 degrees QTc Int : 499 ms Atrial fibrillation with rapid ventricular response Nonspecific ST and T wave abnormality , probably digitalis effect Abnormal ECG When compared with ECG of 15-MAY-2023 19:16, (Unconfirmed) Nonspecific T wave abnormality, improved in Inferior leads Nonspecific T wave abnormality, improved in Anterior leads Confirmed by MARIBEL BRID[facility] Brewer ([id number]) on 05/22/2023 5:36:00 PM Referred By: Electronically Signed By:BALDO GOMES MD [facility] Transcribed By: MUS Signed By Baltazar Gomes MD 05/22/23 1736 [facility] ECH echo transthoracicon [facility] echo transthoracic [facility] Main [address] [address] Echocardiogram Signed Patient: Taurus Garcia MR#: [id number] : 1945 Acct:[id number] Age/Sex: 77 / M ADM Date: 05/10/23 Loc: Room: [address] [place] [address] Type: ADM IN Attending Dr: Suraj Razo MD Ordering Provider: Donita Armstrong APRN, ACNP-BC Date of Service: 05/16/23 ECH/[facility] echo transthoracic: h/o afib.resp failure, Evaulate EF, valves Copies to: Donita Armstrong APRN, ACNP-BC Mourhaf A Traboulssi, MD BSA: 2.6 m2 BP: 165/68 mmHg HR: 55 Reason For Study: h/o afib.resp failure, Evaulate EF, valves History: Bladder Cancer. HTN. PE. Interpretation Summary The left ventricular wall motion is normal. Mild concentric left ventricular hypertrophy. Ejection Fraction = 60-65%. There is trace tricuspid regurgitation. The study was technically limited. Compared to prior study, there is no significant change. Procedure/Quality: A two-dimensional transthoracic echocardiogram with color flow, Doppler and injection of contrast agent Definity was performed. A two- dimensional transthoracic echocardiogram with color flow and Doppler was performed. The study was technically suboptimal in quality due to patient body habitus . Left Ventricle: The left ventricular size is normal. Mild concentric left ventricular hypertrophy. Ejection Fraction = 60-65%. The left ventricular wall motion is normal. Left Atrium: The left atrium appears normal in size. Right Atrium: The right atrium appears normal in size. Right Ventricle: The right ventricular size, thickness and function are normal. Aortic Valve: The aortic valve is normal in structure and function. No aortic regurgitation is present. Mitral Valve: The mitral valve is normal in structure and function. There is no mitral regurgitation noted. Tricuspid Valve: The tricuspid valve is normal in structure and function. There is trace tricuspid regurgitation. Pulmonic Valve: The pulmonic valve is normal in structure and function. Arteries: The aortic root is normal size. Pericardium/Pleura: No pericardial effusion seen. There is no pleural effusion. IVC/Hepatic Viens: The inferior vena cava is normal in size, with a normal collapsibility index. Measurements with Normals IVSd: 1.5 cm (0.7-1.1 cm)LVIDd: 4.3 cm (3.7-5.4 cm) LVPWd: 1.3 cm (0.7-1.1 cm)LVIDs: 3.3 cm (2.3-3.6 cm) LA dimension: 3.4 cm (2.3-4.0 cm)Ao root diam: 3.7 cm(2.0-3.6 cm) asc Aorta Diam: 3.6 cm(2.1-3.4cm) Doppler with Normals LV V1 max: 103.3 cm/sec (0.7-1.7m/s)MV E max chadwick: 81.7 cm/sec(0.8-1.3m/s) MV A max chadwick: 82.5 cm/sec(0.0-0.0m/s) MV E/A: 0.99 (<1.5) MMode/2D Measurements Calculations TAPSE: 2.6 cm FS: 22.4 % Ao root area: LVOT diam: 2.2 cm RV S Chadwick: EDV(Teich): 10.6 cm2 LVOT area: 3.7 cm2 16.3 cm/sec 83.4 ml ESV(Teich): 45.6 ml EF(Teich): 45.4 % __ LVLd ap4: 8.8 cm SV(MOD-sp4): LAV(MOD-sp4): LA A2 area: 23.1 cm2 EDV(MOD-sp4): 98.3 ml 74.6 ml 158.0 ml LAV(MOD-sp2): LA A4 area: 26.7 cm2 LVLs ap4: 7.4 cm 61.3 ml LA length (vol): ESV(MOD-sp4): 7.8 cm 59.7 ml LA vol: 67.1 ml EF(MOD-sp4): 62.2 % LA vol index: 26.0 ml/m2 Doppler Measurements Calculations MV dec time: E/E' lat: 9.3 MV dec slope: Ao V2 max: 0.24 sec E/E' med: 10.5 187.9 cm/sec 343.9 cm/sec2 Ao max P.1 mmHg Ao mean P.3 mmHg Ao V2 mean: 136.5 cm/sec Ao V2 VTI: 44.0 cm LAUREN(I,D): 2.1 cm2 LAUREN(V,D): 2.0 cm2 __ LV V1 max PG: TV max PG: TR max chadwick: 4.3 mmHg 22.0 mmHg 234.6 cm/sec LV V1 mean PG: TR max P.0 mmHg 2.4 mmHg LV V1 mean: 73.9 cm/sec LV V1 VTI: 24.8 cm Transcribed By: DAPHNEY Performed At: 05/16/23 1317 Signed By: Lupe Roy MD 05/16/23 1706 [facility] Glucose Poct Glucometerson 0 05-16-2023 Commemt1 Glu2: Cleaned Meter [facility] Comment on above: Result Comment: PERF ORMED BY: [address] [place] [address] PATHOLOGIST DISTRIBUTOR OF DIRECTORIES GINA CARDONA M.D. Performed By: #### G LULS #### Point of Care testing , Glucose [Mass/Vol] 146 mg/dL [facility] Comment on above: Result Comment: [place] Glucose Reference Range is dependent on time and content of last meal. Glucose of more than 200 mg/dL in a nonstressed, ambulatory subject supports the diagnosis of Diabetes Mellitus. Performed By: #### G LULS #### Point of Care testing , Commemt1 Glu2: Cleaned Meter [facility] Comment on above: Result Comment: PERF ORMED BY: [address] [place] [address] PATHOLOGIST DISTRIBUTOR OF DIRECTORIES GINA CARDONA M.D. Performed By: #### G LULS #### Point of Care testing , Glucose [Mass/Vol] 165 mg/dL [facility] Comment on above: Result Comment: [place] om Glucose Reference Range is dependent on time and content of last meal. Glucose of more than 200 mg/dL in a nonstressed, ambulatory subject supports the diagnosis of Diabetes Mellitus. Performed By: #### G LULS #### Point of Care testing , Glucose [Mass/Vol] 100 mg/dL [facility] Comment on above: Result Comment: [place] om Glucose Reference Range is dependent on time and content of last meal. Glucose of more than 200 mg/dL in a nonstressed, ambulatory subject supports the diagnosis of Diabetes Mellitus. PERFORMED BY: [facility] [address] [place] [address] PATHOLOGIST DISTRIBUTOR OF DIRECTORIES GINA CARDONA M.D. Performed By: #### G LULS ####Point of Care testing, Ketones Auto test strip (U) [Mass/Vol]Ordered By: Donita Armstrong on 05-16-2023 Ketones (U) [Mass/Vol] Negative Negative [facility] - UrinalysisOrder ed By: Donita Armstrong on 05-16-2023 Hyaline casts LM Ql (Urine sed) 9-19 [LPF] 0-8 [facility] Nitrite Test strip Ql (U)Ord ered By: Donita Armstrong on 05-16-2023 Nitrite Ql (U) Negative Negative [facility] No Panel InformationOrdered By: Suraj Razo on 05-16-2023 Bedside Glucose Comment Glu2: cleaned meter [facility] No Panel InformationOrdered By: Donita Armstrong on 05-16-2023 Bacterial ID (NA Multiplex Assay) [facility] Protein Auto test strip (U) [Mass/Vol]Ordered By: Donita Patti on 05-16-2023 Protein (U) [Mass/Vol] 30 mg/dL Negative [facility] Specific gravity Auto test s trip (U) [Rel density]Ordered By: Donita Patti on 05-16-2023 Specific gravity (U) [Rel density] 1.026 1.001-1.03 0 [facility] Squamous epithelial cells de tection in urine sediment by light microscopyOrdered By: Donita Armstrong on 05-16-2023 Epithelial cells.squamous LM Ql (Urine sed) 0-1 [HPF] 0-2 [facility] Thyroid Stimulating Hormoneo n 05-16-2023 TSH Qn 1.50 m[IU]/L Normal 0.45-5.33 [facility] Comment on above: Order Comment: Comme nt please run off blood drawn this morning Result Comment: PERF ORMED BY: [facility] [address] [place] [address] PATHOLOGIST DISTRIBUTOR OF DIRECTORIES GINA CARDONA M.D. Performed By: #### G LULS #### Point of Care testing , Thyrotropin [Units/volume] i n Serum or PlasmaOrdered By: Donita Armstrong on 05-16-2023 TSH Qn 1.50 m[IU]/L 0.45-5.33 [facility] Troponin I High Sensitivityo n 05-16-2023 Troponin I High Sensitivity 33.0 pg/mL High 0.0-20.0 [facility] Comment on above: Order Comment: Comme nt please run off blood drawn this morning Result Comment: PERF ORMED BY: [place] [address] PATHOLOGIST DISTRIBUTOR OF DIRECTORIES GINA CARDONA M.D. Performed By: #### G LULS #### Point of Care testing , Troponin I.cardiac [Mass/vol ume] in Serum or Plasma by Detection limit <= 0.01 ng/Ordered By: Donita Armstrong on 05-16-2023 Troponin I.cardiac DL <= 0.01 ng/mL [Mass/Vol] 33.0 pg/mL 0.0-20.0 [facility] Urine Cultureon 05-16-2023 Bacteria identified Cx Nom (U) No Growth 2 Days PERFORMED BY: [address] [address] PATHOLOGIST DISTRIBUTOR OF DIRECTORIES GINA CARDONA M.D. Normal [facility] Comment on above: Performed By: #### G LULS #### Point of Care testing , Urine bacteria detection by automated methodOrdered By: Donita Armstrong on 05-16-2023 Bacteria Auto Ql (U) None seen None Seen [facility] Urine clarity by refractomet ry automatedOrdered By: Donita Armstrong on 05-16-2023 Clarity Refractometry automated (U) Clear Clear [facility] Urine culture routineOrdered By: Donita Armstrong on 05-16-2023 Bacteria identified Cx Nom (U) No Growth 2 Days [facility] Urine glucose measurement by automated test strip (mass/volume)Ordered By: Donita Armstrong on 05-16-2023 Glucose Auto test strip (U) [Mass/Vol] Normal mg/dL Normal [facility] Urine hemoglobin detection b y automated test stripOrdered By: Donita Armstrong on 05-16-2023 Hemoglobin Auto test strip Ql (U) Negative Negative [facility] Urine leukocyte esterase det ection by automated test stripOrdered By: Donita Patti on 05-16-2023 Leukocyte esterase Auto test strip Ql (U) 1+ Negative [facility] Urobilinogen Auto test strip (U) [Mass/Vol]Ordered By: Donita Patti on 05-16-2023 Urobilinogen (U) [Mass/Vol] Normal mg/dL Normal [facility] Yeast detection in urine sed iment by light microscopyOrdered By: Donita Armstrong on 05-16-2023 Yeast LM Ql (Urine sed) None seen [HPF] None Seen [facility] pH Auto test strip (U)Ordere d By: Donita Armstrong on 05-16-2023 pH (U) 5.5 [pH] 5.0-9.0 [facility] Arterial Blood Gason 023 ABG Base Excess 9.2 mmol/L High -3.0-3.0 [facility] Comment on above: Performed By: #### G LULS #### Point of Care testing , ABG Frac Inspired O2 35 % Normal [facility] Comment on above: Performed By: #### G LULS #### Point of Care testing , ABG Oxygen Content 7.9 mmol/L Normal 6.6-9.7 [facility] Comment on above: Performed By: #### G LULS #### Point of Care testing , ABG Oxygen Saturation 92.2 % Low 95.0-100.0 [facility] Comment on above: Performed By: #### G LULS #### Point of Care testing , ABG PCO2 50.8 mm[Hg] Off scale high 35.0-45.0 [facility] Comment on above: Performed By: #### G LULS #### Point of Care testing , ABG PEEP 5 [facility] Comment on above: Performed By: #### G LULS #### Point of Care testing , ABG PH 7.45 Normal 7.35-7.45 [facility] Comment on above: Performed By: #### G LULS #### Point of Care testing , ABG PO2 60.0 mm[Hg] Low 80.0-100.0 [facility] Comment on above: Performed By: #### G LULS #### Point of Care testing , ABG TV 500 mL [facility] Comment on above: Performed By: #### G LULS #### Point of Care testing , CO2 [Moles/Vol] 36.3 mmol/L High 23.0-27.0 [facility] Comment on above: Performed By: #### G LULS #### Point of Care testing , HCO3 (Bld) [Moles/Vol] 34.8 mmol/L High 23.0-29.0 [facility] Comment on above: Performed By: #### G LULS #### Point of Care testing , Respiratory Critical [facility] Comment on above: Result Comment: Crit ical Value called on: 05/15/2023 at 05:57 PERFORMED BY: [facility] [address] [place] [address] PATHOLOGIST DISTRIBUTOR OF DIRECTORIES GINA CARDONA M.D. Performed By: #### G LULS #### Point of Care testing , Set Respiratory Rate 10 [facility] Comment on above: Performed By: #### G LULS #### Point of Care testing , VBG Draw Site Right Radial [facility] Comment on above: Performed By: #### G LULS #### Point of Care testing , Ventilator Mode AC [facility] Comment on above: Performed By: #### G LULS #### Point of Care testing , Basic Metabolic Panelon 04-22 Anion gap [Moles/Vol] 8.1 mmol/L Normal 6.0-15.0 [facility] Comment on above: Performed By: #### G LULS #### Point of Care testing , Calcium [Mass/Vol] 8.8 mg/dL Normal 8.6-10.3 [facility] Comment on above: Performed By: #### G LULS #### Point of Care testing , Chloride [Moles/Vol] 103 mmol/L Normal 98-107 [facility] Comment on above: Performed By: #### G LULS #### Point of Care testing , CO2 [Moles/Vol] 32.2 mmol/L High 21.0-31.0 [facility] Comment on above: Performed By: #### G LULS #### Point of Care testing , Creatinine [Mass/Vol] 0.90 mg/dL Normal 0.70-1.30 [facility] Comment on above: Performed By: #### G LULS #### Point of Care testing , Creatinine Clr Calc Pharmacy 97.54 [facility] Comment on above: Result Comment: PERF ORMED BY: [facility] [address] [place] [place] [address] PATHOLOGIST DISTRIBUTOR OF DIRECTORIES GINA CARDONA M.D. Performed By: #### G LULS #### Point of Care testing , GFR/1.73 sq M.predicted MDRD (S/P/Bld) [Vol rate/Area] mL/min/{1.73_m2} [facility] Comment on above: Performed By: #### G LULS #### Point of Care testing , Glucose [Mass/Vol] 109 mg/dL High 70-100 [facility] Comment on above: Result Comment: [place] Glucose Reference Range is dependent on time and content of last meal. Glucose of more than 200 mg/dL in a nonstressed, ambulatory subject supports the diagnosis of Diabetes Mellitus. ADA recommended reference range Performed By: #### G LULS #### Point of Care testing , Potassium [Moles/Vol] 4.3 mmol/L Normal 3.5-5.1 [facility] Comment on above: Performed By: #### G LULS #### Point of Care testing , Sodium [Moles/Vol] 139 mmol/L Normal 136-145 [facility] Comment on above: Performed By: #### G LULS #### Point of Care testing , Urea nitrogen [Mass/Vol] 29 mg/dL High 7-25 [facility] Comment on above: Performed By: #### G LULS #### Point of Care testing , Complete Blood Count Auto Di ffon 05-15-2023 Basophils (Bld) [#/Vol] 0.0 10*3/uL Normal 0.0-0.2 [facility] Comment on above: Result Comment: PERF ORMED BY: [place] [address] PATHOLOGIST DISTRIBUTOR OF DIRECTORIES GINA CARDONA M.D. Performed By: #### B MP #### [address] Basophils/100 WBC (Bld) 0.3 % Normal . [facility] Comment on above: Performed By: #### B MP #### [address] Eosinophils (Bld) [#/Vol] 0.6 10*3/uL High 0.0-0.45 [facility] Comment on above: Performed By: #### B MP #### [address] Eosinophils/100 WBC (Bld) 6.3 % Normal . [facility] Comment on above: Performed By: #### B MP #### [address] Erythrocyte distribution width (RBC) [Ratio] 18.8 % High 12.0-14.8 [facility] Comment on above: Performed By: #### B MP #### [address] Hematocrit (Bld) [Volume fraction] 41.7 % Normal 38.8-50.0 [facility] Comment on above: Performed By: #### B MP #### [address] Hemoglobin (Bld) [Mass/Vol] 13.7 g/dL Normal 13.0-17.0 [facility] Comment on above: Performed By: #### B MP #### [address] Lymphocytes (Bld) [#/Vol] 0.9 10*3/uL Low 1.00-4.8 [facility] Comment on above: Performed By: #### B MP #### [address] Lymphocytes/100 WBC (Bld) 10.1 % Normal . [facility] Comment on above: Performed By: #### B MP #### [address] MCH (RBC) [Entitic mass] 28.0 pg Normal 27.5-35.2 [facility] Comment on above: Performed By: #### B MP #### [address] MCV (RBC) [Entitic vol] 85.1 fL Normal 83.5-101 [facility] Comment on above: Performed By: #### B MP #### [address] Mean Corpuscular HGB Conc 32.9 g/dL Normal 32.5-35.6 [facility] Comment on above: Performed By: #### B MP #### [place] [address] [place] Monocytes (Bld) [#/Vol] 0.5 10*3/uL Normal 0.0-0.8 [facility] Comment on above: Performed By: #### B MP #### [address] Monocytes/100 WBC (Bld) 5.6 % Normal . [facility] Comment on above: Performed By: #### B MP #### [address] Neutrophils (Bld) [#/Vol] 7.3 10*3/uL Normal 1.8-7.7 [facility] Comment on above: Performed By: #### B MP #### [address] Neutrophils/100 WBC (Bld) 77.7 % Normal . [facility] Comment on above: Performed By: #### B MP #### [facility] [address] NRBC% 0.7 /100{WBC} High 0-0.5 [facility] Comment on above: Performed By: #### B MP #### [facility] [address] Platelet mean volume (Bld) [Entitic vol] 8.9 fL Normal 6.6-10.1 [facility] Comment on above: Performed By: #### B MP #### [facility] [address] Platelets (Bld) [#/Vol] 106 10*3/uL Low 150-450 [facility] Comment on above: Performed By: #### B MP #### [address] RBC (Bld) [#/Vol] 4.90 10*6/uL Normal 3.90-5.60 [facility] Comment on above: Performed By: #### B MP #### [address] WBC (Bld) [#/Vol] 9.4 10*3/uL Normal 4.1-10.5 [facility] Comment on above: Performed By: #### B MP #### [address] ECG 12 lead ECGon 05-15-2023 ECG 12 lead ECG [facility] Main [place] [address] [place] [address] Electrocardiograph Report Signed Patient: Taurus Garcia MR#: [id number] : 1945 Acct:[id number] Age/Sex: 77 / M ADM Date: 05/10/23 Loc: Room: [address] [place] [address] Type: DIS IN Attending Dr: Chau Lara MD Ordering Provider: Jarret Garza MD Date of Service: 05/15/23 ECG/ECG 12 lead ECG: prn EKG Copies to: Test Reason : Blood Pressure : / mmHG Vent. Rate : 130 BPM Atrial Rate : 163 BPM P-R Int : 000 ms QRS Dur : 086 ms QT Int : 272 ms P-R-T Axes : 000 036 -05 degrees QTc Int : 400 ms Atrial fibrillation with rapid ventricular response with premature ventricular or aberrantly conducted complexes Nonspecific ST and T wave abnormality , probably digitalis effect Abnormal ECG When compared with ECG of 14-MAY-2023 06:35, (Unconfirmed) Atrial fibrillation has replaced Sinus rhythm Vent. rate has increased BY 68 BPM Nonspecific T wave abnormality now evident in Inferior leads Nonspecific T wave abnormality now evident in Anterolateral leads Confirmed by MARIBEL BRIDGES [facility] CENTERDaniella, BALDO ([id number]) on 05/22/2023 5:35:56 PM Referred By: Electronically Signed By:BALDO GOMES MD, FACC Transcribed By: MUS Signed By Baltazar Gomes MD 05/22/23 1731 Normal [facility] Glucose Poct Glucometerson 0 05-15-2023 Glucose [Mass/Vol] 146 mg/dL Normal [facility] Comment on above: Result Comment: [facility] Glucose Reference Range is dependent on time and content of last meal. Glucose of more than 200 mg/dL in a nonstressed, ambulatory subject supports the diagnosis of Diabetes Mellitus. PERFORMED BY: [address] [place] [address] PATHOLOGIST DISTRIBUTOR OF DIRECTORIES GINA CARDONA M.D. Performed By: #### G LULS ####Point of Care testing, Glucose [Mass/Vol] 152 mg/dL Normal [facility] Comment on above: Result Comment: [facility] Glucose Reference Range is dependent on time and content of last meal. Glucose of more than 200 mg/dL in a nonstressed, ambulatory subject supports the diagnosis of Diabetes Mellitus. PERFORMED BY: [facility] [address] [facility] [place] [address] PATHOLOGIST DISTRIBUTOR OF DIRECTORIES GINA CARDONA M.D. Performed By: #### G LULS ####Point of Care testing, Glucose [Mass/Vol] 103 mg/dL Normal [facility] Comment on above: Result Comment: [facility] Glucose Reference Range is dependent on time and content of last meal. Glucose of more than 200 mg/dL in a nonstressed, ambulatory subject supports the diagnosis of Diabetes Mellitus. PERFORMED BY: [address] [place] [id number] PATHOLOGIST DISTRIBUTOR OF DIRECTORIES GINA CARDONA M.D. Performed By: #### G LULS #### Point of Care testing , Laboratory - Chemistry and C hemistry - challengeOrdered By: Eliezer Newell on 05-15-2023 CO2 [Moles/Vol] 36.3 mmol/L 23.0-27.0 [facility] HCO3 (Bld) [Moles/Vol] 34.8 mmol/L 23.0-29.0 [facility] Magnesiumon 05-15-2023 Magnesium [Mass/Vol] 1.9 mg/dL Normal 1.9-2.7 [facility] Comment on above: Result Comment: PERF ORMED BY: [address] [place] [id number] PATHOLOGIST DISTRIBUTOR OF DIRECTORIES GINA CARDONA M.D. Performed By: #### K , MG ####[facility] [address] [place] [address] [facility] Magnesium [Mass/Vol] 2.0 mg/dL Normal 1.9-2.7 [facility] Comment on above: Order Comment: Comme nt Please run off blood drawn this morning Result Comment: PERF ORMED BY: [address] [place] [id number] PATHOLOGIST DISTRIBUTOR OF DIRECT[employer]IES GINA CARDONA M.D. Performed By: #### G LULS #### Point of Care testing , No Panel InformationOrdered By: Eliezer Newell on 05-15-2023 Arterial Blood Base Excess 9.2 mmol/L -3.0-3.0 [facility] Arterial Blood Oxygen Content 7.9 mmol/L 6.6-9.7 [facility] Arterial Blood Oxygen Saturation 92.2 % 95.0-100.0 [facility] Arterial Blood Partial Pressure CO2 50.8 mm[Hg] 35.0-45.0 [facility] Arterial Blood Partial Pressure O2 60.0 mm[Hg] 80.0-100.0 [facility] Arterial Blood pH 7.45 7.35-7.45 [facility] Blood Gas Critical Value See comment [facility] Comment on above: Critical Value yandel villalpando on: 05/15/2023 at 05:57 Blood Gas PEEP 5 cmH2O [facility] Blood Gas Sample Site Right radial F [facility] Blood Gas Set Respiration Rate 10 [facility] Blood Gas Tidal Volume 500 mL Fi [facility] Blood Gas Ventilator Mode Ac [facility] FiO2 35 % [facility] Potassiumon 05-15-2023 Potassium [Moles/Vol] 4.0 mmol/L Normal 3.5-5.1 [facility] Comment on above: Performed By: #### K , MG ####[place] [address] [place] [id number] [facility] Triglyceride [Mass/volume] i n Serum or PlasmaOrdered By: Lexy Chappell on 05-15-2023 Triglyceride [Mass/Vol] 224 mg/dL 35-149 [facility] Comment on above: TRIG ATP III CLASSIF ICATIONTRIG less than 150 mg/dL NormalTRIG 150-199 mg/dL Borderline highTRIG 200-500 mg/dL High TRIG greater than 500 mg/dL Very highStandard traceable to the Center for Disease Conrtrol and Prevention (CDC) test method. Triglycerideson 05-15-2023 Triglyceride [Mass/Vol] 224 mg/dL High 35-149 [facility] Comment on above: Result Comment: TRIG ATP III CLASSIFICATION TRIG less than 150 mg/dL Normal TRIG 150-199 mg/dL Borderline high TRIG 200-500 mg/dL High TRIG greater than 500 mg/dL Very high Standard traceable to the Center for Disease Conrtrol and Prevention (CDC) test method. PERFORMED BY: [facility] [address] [place] [address] PATHOLOGIST DISTRIBUTOR OF DIRECTORIES GNIA CARDONA M.D. Performed By: #### T RIG ####[address] [address] [facility] XR chest 1V portableon 05-15 XR chest 1V portable [facility] Main [place] [id number] XRay Report Signed Patient: Taurus Garcia MR#: [id number] : 1945 Acct:[id number] Age/Sex: 77 / M ADM Date: 05/10/23 Loc: Room: [address] [place] [address] Type: ADM IN Attending Dr: Eliezer Newell MD Copies to: MD Eliezer Wood MD Ordering Provider: Lexy Chappell MD Date of Service: 05/15/23 XR/XR chest 1V portable: Ett placement Plain film chest single view HISTORY: Daily assessment of ventilated patient COMPARISON: 05/14/2023 FINDINGS: SUPPORT DEVICES: Tubes unchanged. POSTSURGICAL CHANGES: None HEART: Within normal limits PULMONARY DEVORA: Within normal limits MEDIASTINUM: Unremarkable LUNGS AND PLEURA: No acute lung process, pleural effusion or pneumothorax identified. Continued interstitial prominence. BONY STRUCTURES: Intact ADDITIONAL FINDINGS None XR/XR chest 1V portable IMPRESSION: Stable chest Impression dictated by: Aaron Mock M.D.05/15/2023 8:32 AM Dictation Location: [place] [address] Transcribed By: [facility] 05/15/23831 Dictated By: Aaron Mock DO 05/15/2331 Signed By: 05/15/23 0832 [facility] Arterial Blood Gason 023 ABG Base Excess 7.1 mmol/L High -3.0-3.0 [facility] Comment on above: Performed By: #### G LULS #### Point of Care testing , ABG Frac Inspired O2 30 % [facility] Comment on above: Performed By: #### G LULS #### Point of Care testing , ABG Oxygen Content 8.4 mmol/L Normal 6.6-9.7 [facility] Comment on above: Performed By: #### G LULS #### Point of Care testing , ABG Oxygen Saturation 92.8 % Low 95.0-100.0 [facility] Comment on above: Performed By: #### G LULS #### Point of Care testing , ABG PCO2 51.8 mm[Hg] Off scale high 35.0-45.0 [facility] Comment on above: Performed By: #### G LULS #### Point of Care testing , ABG PEEP 5 Normal [facility] Comment on above: Performed By: #### G LULS #### Point of Care testing , ABG PH 7.42 Normal 7.35-7.45 [facility] Comment on above: Performed By: #### G LULS #### Point of Care testing , ABG PO2 62.6 mm[Hg] Low 80.0-100.0 [facility] Comment on above: Performed By: #### G SWAPNALS #### Point of Care testing , ABG TV 500 mL [facility] Comment on above: Performed By: #### G SWAPNALS #### Point of Care testing , CO2 [Moles/Vol] 34.7 mmol/L High 23.0-27.0 [facility] Comment on above: Performed By: #### G SWAPNALS #### Point of Care testing , HCO3 (Bld) [Moles/Vol] 33.1 mmol/L High 23.0-29.0 [facility] Comment on above: Performed By: #### G SWAPNALS #### Point of Care testing , Respiratory Critical [facility] Comment on above: Result Comment: Crit ical Value called on: 05/14/2023 at 04:52 PERFORMED BY: [facility] [address] [place] [address] PATHOLOGIST DISTRIBUTOR OF DIRECTORIES GINA CARDONA M.D. Performed By: #### G LULS #### Point of Care testing , Set Respiratory Rate 10 [facility] Comment on above: Performed By: #### G SWAPNALS #### Point of Care testing , VBG Draw Site Right Radial [facility] Comment on above: Performed By: #### G LULS #### Point of Care testing , Basic Metabolic Panelon 092 Anion gap [Moles/Vol] Not performed Normal 6.0-15.0 [facility] Comment on above: Performed By: #### C MINNIE, BMP ####[place] [address] [place] [address] [place] Calcium [Mass/Vol] 8.7 mg/dL Normal 8.6-10.3 [facility] Comment on above: Performed By: #### C MINNIE, BMP ####[place] [address] [place] [address] [place] Chloride [Moles/Vol] 100 mmol/L Normal 98-107 [facility] Comment on above: Performed By: #### C MINNIE, BMP ####[place] [address] [place] [address] [place] CO2 [Moles/Vol] 35.9 mmol/L High 21.0-31.0 [facility] Comment on above: Performed By: #### C MINNIE, BMP ####[place] [address] [place] [address] [facility] Creatinine [Mass/Vol] 0.98 mg/dL Normal 0.70-1.30 [facility] Comment on above: Performed By: #### C MINNIE, BMP ####[place] [address] [place] [address] [place] Creatinine Clr Calc Pharmacy 89.58 [facility] Comment on above: Result Comment: PERF ORMED BY: [facility] [address] [place] [address] PATHOLOGIST DISTRIBUTOR OF DIRECTORIES GINA CARDONA M.D. Performed By: #### C MINNIE, BMP ####[place] [address] [place] [address] [place] GFR/1.73 sq M.predicted MDRD (S/P/Bld) [Vol rate/Area] mL/min/{1.73_m2} [facility] Comment on above: Performed By: #### C MINNIE, BMP ####[place] [address] [place] [address] [place] Glucose [Mass/Vol] 143 mg/dL High 70-100 [facility] Comment on above: Result Comment: [place] Glucose Reference Range is dependent on time and content of last meal. Glucose of more than 200 mg/dL in a nonstressed, ambulatory subject supports the diagnosis of Diabetes Mellitus. ADA recommended reference range Performed By: #### C BCNO, BMP ####[facility] [address] [place] [id number] [facility] Potassium Normal 3.5-5.1 [facility] Comment on above: Result Comment: Spec imen hemolyzed, redraw requested Performed By: #### C BCNO, BMP ####[facility] [place] [address] [facility] Sodium Normal 136-145 [facility] Comment on above: Result Comment: Spec imen hemolyzed, redraw requested Performed By: #### C BCNO, BMP ####[place] [address] [place] [address] [facility] Urea nitrogen [Mass/Vol] 30 mg/dL High 7-25 [facility] Comment on above: Performed By: #### C BCNO, BMP ####[place] [address] [place] [id number] [facility] ECG 12 lead ECGon 05-14-2023 ECG 12 lead ECG [facility] Main [place] [address] [place] [address] Electrocardiograph Report Signed Patient: Taurus Garcia MR#: [id number] : 1945 Acct:[id number] Age/Sex: 77 / M ADM Date: 05/10/23 Loc: Room: [address] [place] [address] Type: DIS IN Attending Dr: Chau Lara MD Ordering Provider: Jarret Garza MD Date of Service: 05/14/23 ECG/ECG 12 lead ECG: prn EKG Copies to: Test Reason : Blood Pressure : / mmHG Vent. Rate : 062 BPM Atrial Rate : 062 BPM P-R Int : 138 ms QRS Dur : 104 ms QT Int : 400 ms P-R-T Axes : 024 035 050 degrees QTc Int : 406 ms Sinus rhythm with occasional premature ventricular complexes Low voltage QRS Borderline ECG When compared with ECG of 15-DEC-2018 22:17, premature ventricular complexes are now present T wave inversion no longer evident in Inferior leads T wave inversion no longer evident in Anterior leads QT has shortened Confirmed by MARIBEL BRIDGES [facility], BALDO ([id number]) on 05/22/2023 5:35:50 PM Referred By: Electronically Signed By:BALDO GOMES MD [facility] Transcribed By: MUS Signed By Baltazar Gomes MD 05/22/23 1735 Normal [facility] Glucose Poct Glucometerson 0 05-14-2023 Commemt1 Glu2: Cleaned Meter Normal [facility] Comment on above: Result Comment: PERF ORMED BY: [facility] [address] [place] [address] PATHOLOGIST DISTRIBUTOR OF DIRECTORIES GINA CARDONA M.D. Performed By: #### G LULS ####Point of Care testing, Glucose [Mass/Vol] 176 mg/dL Normal [facility] Comment on above: Result Comment: [place] om Glucose Reference Range is dependent on time and content of last meal. Glucose of more than 200 mg/dL in a nonstressed, ambulatory subject supports the diagnosis of Diabetes Mellitus. Performed By: #### G LULS ####Point of Care testing, Glucose [Mass/Vol] 170 mg/dL Normal [facility] Comment on above: Result Comment: [place] om Glucose Reference Range is dependent on time and content of last meal. Glucose of more than 200 mg/dL in a nonstressed, ambulatory subject supports the diagnosis of Diabetes Mellitus. PERFORMED BY: [facility] [address] [place] [address] PATHOLOGIST DISTRIBUTOR OF DIRECTORIES GINA CARDONA M.D. Performed By: #### G LULS ####Point of Care testing, Glucose [Mass/Vol] 133 mg/dL Normal [facility] Comment on above: Result Comment: [place] Glucose Reference Range is dependent on time and content of last meal. Glucose of more than 200 mg/dL in a nonstressed, ambulatory subject supports the diagnosis of Diabetes Mellitus. PERFORMED BY: [facility] [address] [place] [address] PATHOLOGIST DISTRIBUTOR OF DIRECT[employer]IES GINA CARDONA M.D. Performed By: #### G ANASTASIIA #### Point of Care testing , Glucose [Mass/Vol] 92 mg/dL Normal [facility] Comment on above: Result Comment: [facility] Glucose Reference Range is dependent on time and content of last meal. Glucose of more than 200 mg/dL in a nonstressed, ambulatory subject supports the diagnosis of Diabetes Mellitus. PERFORMED BY: [facility] [address] [place] [id number] PATHOLOGIST DISTRIBUTOR OF DIRECTORIES GINA CARDONA M.D. Performed By: #### G ANASTASIIA #### Point of Care testing , Hemogram CBC Without Diffon 05-14-2023 Erythrocyte distribution width (RBC) [Ratio] 18.4 % High 12.0-14.8 [facility] Comment on above: Performed By: #### C MINNIE, BMP ####[place] [address] [place] [address] [facility] Hematocrit (Bld) [Volume fraction] 43.9 % Normal 38.8-50.0 [facility] Comment on above: Performed By: #### C MINNIE, BMP ####[place] [address] [place] [address] [facility] Hemoglobin (Bld) [Mass/Vol] 14.5 g/dL Normal 13.0-17.0 [facility] Comment on above: Performed By: #### C MINNIE, BMP ####[place] [address] [place] [address] [facility] MCH (RBC) [Entitic mass] 28.1 pg Normal 27.5-35.2 [facility] Comment on above: Performed By: #### C MINNIE, BMP ####[place] [address] [place] [address] [facility] MCV (RBC) [Entitic vol] 85.0 fL Normal 83.5-101 [facility] Comment on above: Performed By: #### C MINNIE, BMP ####[place] [address] [place] [address] [facility] Mean Corpuscular HGB Conc 33.0 g/dL Normal 32.5-35.6 [facility] Comment on above: Performed By: #### C MINNIE, BMP ####[address] Platelet mean volume (Bld) [Entitic vol] 9.4 fL Normal 6.6-10.1 [facility] Comment on above: Result Comment: PERF ORMED BY: [facility] [address] [place] [address] PATHOLOGIST DISTRIBUTOR OF DIRECT[employer]IES GINA CARDONA M.D. Performed By: #### C MINNIE, BMP ####[address] Platelets (Bld) [#/Vol] 117 10*3/uL Low 150-450 [facility] Comment on above: Performed By: #### C MINNIE, BMP ####[address] RBC (Bld) [#/Vol] 5.17 10*6/uL Normal 3.90-5.60 [facility] Comment on above: Performed By: #### C MINNIE, BMP ####[address] WBC (Bld) [#/Vol] 11.0 10*3/uL High 4.1-10.5 [facility] Comment on above: Performed By: #### C MINNIE, BMP ####[address] Redraw Potassiumon 3 Potassium [Moles/Vol] 4.0 mmol/L Normal 3.5-5.1 [facility] Comment on above: Order Comment: PREVI OUS SPECIMEN GROSSLY HEMOLYZED. NOTIFIED FOREIGN ON 4C Result Comment: PERF ORMED BY: [facility] [address] [place] [address] PATHOLOGIST DISTRIBUTOR OF DIRECTORIES GINA CARDONA M.D. Performed By: #### B MP #### [address] Redraw Sodiumon 05-14-2023 Sodium [Moles/Vol] 140 mmol/L Normal 136-145 [facility] Comment on above: Order Comment: PREVI OUS SPECIMEN GROSSLY HEMOLYZED. NOTIFIED FOREIGN ON 4C Performed By: #### B MP #### [facility] [address] [place] [id number] [facility] XR chest 1V portableon 05-14 XR chest 1V portable [facility] Main [place] [address] [place] [address] XRay Report Signed Patient: Taurus Garcia MR#: [id number] : 1945 Acct:[id number] Age/Sex: 77 / M ADM Date: 05/10/23 Loc: Room: [address] [place] [address] Type: ADM IN Attending Dr: Eliezer Newell MD Copies to: MD Eliezer Wood MD Ordering Provider: Lexy Chappell MD Date of Service: 05/14/23 XR/XR chest 1V portable: Ett placement Plain film chest single view HISTORY: Follow-up assessment of intubated patient COMPARISON: 05/13/2023 FINDINGS: SUPPORT DEVICES: Tubes unchanged. POSTSURGICAL CHANGES: None HEART: Within normal limits PULMONARY DEVORA: Within normal limits MEDIASTINUM: Unremarkable LUNGS AND PLEURA: No acute lung process, pleural effusion or pneumothorax identified. Continued interstitial prominence. BONY STRUCTURES: Intact ADDITIONAL FINDINGS None XR/XR chest 1V portable IMPRESSION: Stable chest Impression dictated by: Aaron Mock M.D.05/14/2023 8:28 AM Dictation Location: [place] [address] Transcribed By: [facility] 05/14/23827 Dictated By: Aaron Mock DO 05/14/23827 Signed By: 05/14/23827 [facility] Arterial Blood Gason 023 ABG Base Excess 2.9 mmol/L Normal -3.0-3.0 [facility] Comment on above: Performed By: #### G LULS #### Point of Care testing , ABG Frac Inspired O2 30 % [facility] Comment on above: Performed By: #### G LULS #### Point of Care testing , ABG Oxygen Content 8.4 mmol/L Normal 6.6-9.7 [facility] Comment on above: Performed By: #### G LULS #### Point of Care testing , ABG Oxygen Saturation 95.2 % Normal 95.0-100.0 [facility] Comment on above: Performed By: #### G LULS #### Point of Care testing , ABG PCO2, Temp Corrected 53.2 mm[Hg] Off scale high 35.0-45.0 [facility] Comment on above: Performed By: #### G LULS #### Point of Care testing , ABG PEEP 5 [facility] Comment on above: Performed By: #### G SWAPNALS #### Point of Care testing , ABG PH, Temp Corrected 7.36 Normal 7.35-7.45 [facility] Comment on above: Performed By: #### G LULS #### Point of Care testing , ABG PO2, Temperature Corrected 77.8 mm[Hg] Low 80.0-100.0 [facility] Comment on above: Performed By: #### G ANASTASIIA #### Point of Care testing , ABG TV 500 mL [facility] Comment on above: Performed By: #### G SWAPNALS #### Point of Care testing , CO2 [Moles/Vol] 31.1 mmol/L High 23.0-27.0 [facility] Comment on above: Performed By: #### G SWAPNALS #### Point of Care testing , HCO3 (Bld) [Moles/Vol] 29.4 mmol/L High 23.0-29.0 [facility] Comment on above: Performed By: #### G LULS #### Point of Care testing , Respiratory Critical Normal [facility] Comment on above: Result Comment: Crit ical Value called on: 05/13/2023 at 04:46 PERFORMED BY: [place] [address] [place] [address] PATHOLOGIST DISTRIBUTOR OF DIRECTORIES JIANLAN SUN M.D. Performed By: #### G ANASTASIIA #### Point of Care testing , Set Respiratory Rate 10 Normal [facility] Comment on above: Performed By: #### G ANASTASIIA #### Point of Care testing , VBG Draw Site Left Radial [facility] Comment on above: Performed By: #### G ANASTASIIA #### Point of Care testing , Basic Metabolic Panelon 09-2 Anion gap [Moles/Vol] Not performed Normal 6.0-15.0 [facility] Comment on above: Performed By: #### G ANASTASIIA #### Point of Care testing , Calcium [Mass/Vol] 8.9 mg/dL Normal 8.6-10.3 [facility] Comment on above: Performed By: #### G ANASTASIIA #### Point of Care testing , Chloride [Moles/Vol] 103 mmol/L Normal 98-107 [facility] Comment on above: Performed By: #### G ANASTASIIA #### Point of Care testing , CO2 [Moles/Vol] 33.8 mmol/L High 21.0-31.0 [facility] Comment on above: Performed By: #### G ANASTASIIA #### Point of Care testing , Creatinine [Mass/Vol] 1.18 mg/dL Normal 0.70-1.30 [facility] Comment on above: Performed By: #### G ANASTASIIA #### Point of Care testing , Creatinine Clr Calc Pharmacy 73.82 [facility] Comment on above: Performed By: #### G SWAPNALS #### Point of Care testing , GFR/1.73 sq M.predicted MDRD (S/P/Bld) [Vol rate/Area] mL/min/{1.73_m2} [facility] Comment on above: Performed By: #### G ANASTASIIA #### Point of Care testing , Glucose [Mass/Vol] 113 mg/dL High 70-100 [facility] Comment on above: Result Comment: [place] Glucose Reference Range is dependent on time and content of last meal. Glucose of more than 200 mg/dL in a nonstressed, ambulatory subject supports the diagnosis of Diabetes Mellitus. ADA recommended reference range Performed By: #### G LULS #### Point of Care testing , Potassium Normal 3.5-5.1 [facility] Comment on above: Result Comment: Spec imen hemolyzed, redraw requested Performed By: #### G LULS #### Point of Care testing , Sodium [Moles/Vol] 140 mmol/L Normal 136-145 [facility] Comment on above: Performed By: #### G LULS #### Point of Care testing , Urea nitrogen [Mass/Vol] 28 mg/dL High 7-25 [facility] Comment on above: Performed By: #### G LULS #### Point of Care testing , Glucose Poct Glucometerson 0 05-13-2023 Commemt1 Glu2: Cleaned Meter [facility] Comment on above: Result Comment: PERF ORMED BY: [place] [address] PATHOLOGIST DISTRIBUTOR OF DIRECTORIES GINA CARDONA M.D. Performed By: #### G LULS ####Point of Care testing, Glucose [Mass/Vol] 182 mg/dL Normal [facility] Comment on above: Result Comment: [place] Glucose Reference Range is dependent on time and content of last meal. Glucose of more than 200 mg/dL in a nonstressed, ambulatory subject supports the diagnosis of Diabetes Mellitus. Performed By: #### G LULS ####Point of Care testing, Commemt1 Glu2: Cleaned Meter [facility] Comment on above: Result Comment: PERF ORMED BY: [place] [address] PATHOLOGIST DISTRIBUTOR OF DIRECTORIES GINA CARDONA M.D. Performed By: #### B MP #### [address] Glucose [Mass/Vol] 162 mg/dL Normal [facility] Comment on above: Result Comment: [place] Glucose Reference Range is dependent on time and content of last meal. Glucose of more than 200 mg/dL in a nonstressed, ambulatory subject supports the diagnosis of Diabetes Mellitus. Performed By: #### B MP #### [address] Glucose [Mass/Vol] 115 mg/dL Normal [facility] Comment on above: Result Comment: [facility] Glucose Reference Range is dependent on time and content of last meal. Glucose of more than 200 mg/dL in a nonstressed, ambulatory subject supports the diagnosis of Diabetes Mellitus. PERFORMED BY: [place] [address] PATHOLOGIST DISTRIBUTOR OF DIRECTORIES GINA CARDONA M.D. Performed By: #### G LULS ####Point of Care testing, Glucose [Mass/Vol] 123 mg/dL Normal [facility] Comment on above: Result Comment: [facility] Glucose Reference Range is dependent on time and content of last meal. Glucose of more than 200 mg/dL in a nonstressed, ambulatory subject supports the diagnosis of Diabetes Mellitus. PERFORMED BY: [place] [address] PATHOLOGIST DISTRIBUTOR OF DIRECTORIES GINA CARDONA M.D. Performed By: #### B MP #### [address] Hemogram CBC Without Diffon 05-13-2023 Erythrocyte distribution width (RBC) [Ratio] 18.8 % High 12.0-14.8 [facility] Comment on above: Performed By: #### G LULS #### Point of Care testing , Hematocrit (Bld) [Volume fraction] 43.7 % Normal 38.8-50.0 [facility] Comment on above: Performed By: #### G LULS #### Point of Care testing , Hemoglobin (Bld) [Mass/Vol] 14.3 g/dL Normal 13.0-17.0 [facility] Comment on above: Performed By: #### G LULS #### Point of Care testing , MCH (RBC) [Entitic mass] 28.0 pg Normal 27.5-35.2 [facility] Comment on above: Performed By: #### G LULS #### Point of Care testing , MCV (RBC) [Entitic vol] 85.6 fL Normal 83.5-101 [facility] Comment on above: Performed By: #### G ANASTASIIA #### Point of Care testing , Mean Corpuscular HGB Conc 32.7 g/dL Normal 32.5-35.6 [facility] Comment on above: Performed By: #### G LULS #### Point of Care testing , Platelet mean volume (Bld) [Entitic vol] 9.0 fL Normal 6.6-10.1 [facility] Comment on above: Result Comment: PERF ORMED BY: [facility] [place] [address] PATHOLOGIST DISTRIBUTOR OF DIRECTORIES GINA CARDONA M.D. Performed By: #### G ANASTASIIA #### Point of Care testing , Platelets (Bld) [#/Vol] 106 10*3/uL Low 150-450 [facility] Comment on above: Performed By: #### G SWAPNALS #### Point of Care testing , RBC (Bld) [#/Vol] 5.11 10*6/uL Normal 3.90-5.60 [facility] Comment on above: Performed By: #### G SWAPNALS #### Point of Care testing , WBC (Bld) [#/Vol] 7.4 10*3/uL Normal 4.1-10.5 [facility] Comment on above: Performed By: #### G LULS #### Point of Care testing , No Panel InformationOrdered By: Eliezer Newell on 05-13-2023 Arterial Blood pCO2 (Temp correct) 53.2 mm[Hg] 35.0-45.0 [facility] Arterial Blood pH (Temp corrected) 7.36 7.35-7.45 [facility] Arterial Blood pO2 (Temp corrected) 77.8 mm[Hg] 80.0-100.0 [facility] Redraw Potassiumon 3 Potassium [Moles/Vol] 4.2 mmol/L Normal 3.5-5.1 [facility] Comment on above: Order Comment: Previ ous specimen was hemolyzed, notified Peter (4C); redraw requested.-JJ Result Comment: Hemo lysis is present at a level that could interfere with the result. PERFORMED BY: [place] [address] PATHOLOGIST DISTRIBUTOR OF DIRECTORIES GINA CARDONA M.D. Performed By: #### R EDW Judith #### [place] [address] [place] Triglycerideson 05-13-2023 Triglyceride [Mass/Vol] 203 mg/dL High 35-149 [facility] Comment on above: Result Comment: TRIG ATP III CLASSIFICATION TRIG less than 150 mg/dL Normal TRIG 150-199 mg/dL Borderline high TRIG 200-500 mg/dL High TRIG greater than 500 mg/dL Very high Standard traceable to the Center for Disease Conrtrol and Prevention (CDC) test method. PERFORMED BY: [place] [address] PATHOLOGIST DISTRIBUTOR OF DIRECTORIES GINA CARDONA M.D. Performed By: #### G LULS #### Point of Care testing , XR chest 1V portableon 05-13 XR chest 1V portable [facility] [place] [address] [place] [address] XRay Report Signed Patient: Taurus Garcia MR#: [id number] : 1945 Acct:[id number] Age/Sex: 77 / M ADM Date: 05/10/23 Loc: Room: [address] [place] [address] Type: ADM IN Attending Dr: Eliezer Newell MD Copies to: MD Eliezer Wood MD Ordering Provider: Lexy Chappell MD Date of Service: 05/13/23 XR/XR chest 1V portable: Ett placement Plain film chest single view HISTORY: Follow-up assessment of intubated patient. COMPARISON: 04/11/2023 FINDINGS: SUPPORT DEVICES: Tubes unchanged. POSTSURGICAL CHANGES: None HEART: Within normal limits PULMONARY DEVORA: Within normal limits MEDIASTINUM: Unremarkable LUNGS AND PLEURA: No acute lung process, pleural effusion or pneumothorax identified. Continued mild interstitial prominence. BONY STRUCTURES: Intact ADDITIONAL FINDINGS None XR/XR chest 1V portable IMPRESSION: Stable chest Impression dictated by: Aaron Mock M.D.05/13/2023 8:23 AM Dictation Location: [place] [address] Transcribed By: [facility] 05/13/23822 Dictated By: Aaron Mock DO 05/13/23821 Signed By: 05/13/23822 [facility] Aerobic Cultureon 05-12-2023 Aerobic Culture Light Normal Respira tory Gee 2 Days Gram Stain Result 1+ White Blood Cells Rare Epithelial Cells No Bacteria Seen PERFORMED BY: [facility] [address] [place] [address] PATHOLOGIST DISTRIBUTOR OF DIRECTORIES GINA CARDONA M.D. [facility] Comment on above: Performed By: #### G ANASTASIIA #### Point of Care testing , Aerobic cultureOrdered By: Valdemar Armstrong on 05-12-2023 Bacteria identified Aer cx Nom (Unsp spec) 2 Days [facility] Arterial Blood Gason 023 ABG Base Excess 6.1 mmol/L High -3.0-3.0 [facility] Comment on above: Performed By: #### A BG ####Point of Care testing, ABG Frac Inspired O2 30 % [facility] Comment on above: Performed By: #### A BG ####Point of Care testing, ABG Oxygen Content 8.8 mmol/L Normal 6.6-9.7 [facility] Comment on above: Performed By: #### A BG ####Point of Care testing, ABG Oxygen Saturation 95.5 % Normal 95.0-100.0 [facility] Comment on above: Performed By: #### A BG ####Point of Care testing, ABG PCO2 49.3 mm[Hg] High 35.0-45.0 [facility] Comment on above: Performed By: #### A BG ####Point of Care testing, ABG PEEP 5 [facility] Comment on above: Performed By: #### A BG ####Point of Care testing, ABG PH 7.43 Normal 7.35-7.45 [facility] Comment on above: Performed By: #### A BG ####Point of Care testing, ABG PO2 72.1 mm[Hg] Low 80.0-100.0 [facility] Comment on above: Performed By: #### A BG ####Point of Care testing, ABG TV 500 mL [facility] Comment on above: Performed By: #### A BG ####Point of Care testing, CO2 [Moles/Vol] 33.2 mmol/L High 23.0-27.0 [facility] Comment on above: Performed By: #### A BG ####Point of Care testing, HCO3 (Bld) [Moles/Vol] 31.7 mmol/L High 23.0-29.0 [facility] Comment on above: Performed By: #### A BG ####Point of Care testing, Respiratory Critical [facility] Comment on above: Result Comment: Crit ical Value called on: 05/12/2023 at 04:04 PERFORMED BY: [facility] [address] [place] [address] PATHOLOGIST DISTRIBUTOR OF DIRECTORIES GINA CARDONA M.D. Performed By: #### A BG ####Point of Care testing, Set Respiratory Rate 10 [facility] Comment on above: Performed By: #### A BG ####Point of Care testing, VBG Draw Site Left Radial [facility] Comment on above: Performed By: #### A BG ####Point of Care testing, Ventilator Mode AC [facility] Comment on above: Performed By: #### A BG ####Point of Care testing, Basic Metabolic Panelon 04-22 Anion gap [Moles/Vol] Not performed Normal 6.0-15.0 [facility] Comment on above: Performed By: #### G LURAYO #### Point of Care testing , Calcium [Mass/Vol] 9.0 mg/dL Normal 8.6-10.3 [facility] Comment on above: Performed By: #### G LULS #### Point of Care testing , Chloride [Moles/Vol] 105 mmol/L Normal 98-107 [facility] Comment on above: Performed By: #### G LULS #### Point of Care testing , CO2 [Moles/Vol] 31.7 mmol/L High 21.0-31.0 [facility] Comment on above: Performed By: #### G LULS #### Point of Care testing , Creatinine [Mass/Vol] 1.12 mg/dL Normal 0.70-1.30 [facility] Comment on above: Performed By: #### G LULS #### Point of Care testing , Creatinine Clr Calc Pharmacy 76.51 [facility] Comment on above: Result Comment: PERF ORMED BY: [facility] [address] [place] [address] PATHOLOGIST DISTRIBUTOR OF DIRECTORIES GINA CARDONA M.D. Performed By: #### G LULS #### Point of Care testing , GFR/1.73 sq M.predicted MDRD (S/P/Bld) [Vol rate/Area] mL/min/{1.73_m2} [facility] Comment on above: Performed By: #### G LULS #### Point of Care testing , Glucose [Mass/Vol] 113 mg/dL High 70-100 [facility] Comment on above: Result Comment: [place] Glucose Reference Range is dependent on time and content of last meal. Glucose of more than 200 mg/dL in a nonstressed, ambulatory subject supports the diagnosis of Diabetes Mellitus. ADA recommended reference range Performed By: #### G LULS #### Point of Care testing , Potassium Normal 3.5-5.1 [facility] Comment on above: Result Comment: Spec imen hemolyzed, redraw requested Performed By: #### G LULS #### Point of Care testing , Sodium [Moles/Vol] 144 mmol/L Significant change down 136-145 [facility] Comment on above: Performed By: #### G LULS #### Point of Care testing , Urea nitrogen [Mass/Vol] 23 mg/dL Normal 7-25 [facility] Comment on above: Performed By: #### G LULS #### Point of Care testing , Basophils/100 WBC Manual cnt (Bld)Ordered By: Stanley Burt on 05-12-2023 Basophils/100 WBC (Bld) 0 % 0-2 [facility] Blood Cultureon 05-12-2023 Bacteria identified Cx Nom (Bld) (LEFT FINGER TIFFANY POKED FOR BC) NO GROWTH 5 DAYS PERFORMED BY: [facility] [address] [place] [address] PATHOLOGIST DISTRIBUTOR OF DIRECTORIES GINA CARDONA M.D. Normal [facility] Comment on above: Performed By: #### B MP #### [address] Bacteria identified Cx Nom (Bld) [employer] BCID Panel results called at 0624 on 05/13/23 Gram Stain Gram Positive Cocci in Clusters ORGANISM: Staphylococcus sp coag neg (O:STACN) Aerobic VIKY Charge (PCMIC38) SUSCEPTIBILITY ORGANISM: O:STACN ANTIBIOTIC INTERPRETATION VIKY Azithromycin R >4 Ciprofloxacin S <1 Daptomycin S <0.5 Levofloxacin S <1 Linezolid S <1 Oxacillin R 1 Penicillin R >2 Tetracycline R >8 Trimethoprim/Sulfamethoxaz ole S <0.5 Vancomycin S 0.5 [facility] BC[facility] Panel results called at 0624 on 05/13/23 Staphylococcus aureus DNA [Presence] by JAYDE with non-probe detection in Positive blood culture Not detected Bacteroides fragilis DNA [Presence] by JAYDE with non-probe detection in Positive blood culture Not detected Shurthi auris DNA [Presence] by JAYDE with non-probe detection in Positive blood culture Not detected Shruthi albicans DNA [Presence] by JAYDE with non-probe detection in Positive blood culture Not detected Acinetobacter calcoaceticus-baumannii complex DNA [Presence] by JAYDE with non-probe detection in Positive blood culture Not detected Cryptococcus neoformans or gattii 9002 Not detected Cephalosporin resistance blaCTX-M gene [Presence] by Molecular method Not Applicable Escherichia coli Not detected Enterobacterales DNA [Presence] by JAYDE with non-probe detection in Positive blood culture Not detected Enterobacter cloacae complex DNA [Presence] by JAYDE with non-probe detection in Positive blood culture Not detected Staphylococcus epidermidis DNA [Presence] by JAYDE with non-probe detection in Positive blood culture Not detected Enterococcus faecalis DNA [Presence] by JAYDE with non-probe detection in Positive blood culture Not detected Enterococcus faecium DNA [Presence] by JAYDE with non-probe detection in Positive blood culture Not detected Shruthi glabrata DNA [Presence] by JAYDE with non-probe detection in Positive blood culture Not detected Haemophilus influenzae (reported as H flu) Not detected Carbapenem resistance blaIMP gene [Presence] by Molecular method Not Applicable Klebsiella aerogenes DNA [Presence] by JAYDE with non-probe detection in Positive blood culture Not detected Klebsiella pneumoniae+Klebsiella variicola+Klebsiella quasipneumoniae DNA [Presence] by JAYDE with non-probe detection in Positive blood culture Not detected Klebsiella oxytoca DNA [Presence] by JAYDE with non-probe detection in Positive blood culture Not detected Carbapenem resistance blaKPC gene [Presence] by Molecular method Not Applicable Shruthi krusei DNA [Presence] by JAYDE with non-probe detection in Positive blood culture Not detected Listeria monocytogenes (reported as listeriosis) Not detected Staphylococcus lugdunensis DNA [Presence] by JAYDE with non-probe detection in Positive blood culture Not detected Methicillin resistance mecA+mecC genes+SCCmec+OrfX junction [Presence] by Molecular method Not Applicable Carbapenem resistance blaNDM gene [Presence] by Molecular method Not Applicable Neisseria meningitidis - reported as meningococcal disease Not detected Carbapenem resistance renata OXA-48-like gene [Presence] by Molecular method Not Applicable Shruthi parapsilosis DNA [Presence] by JAYDE with non-probe detection in Positive blood culture Not detected Streptococcus pneumoniae - reported at [facility] Not detected Proteus sp DNA [Presence] by JAYDE with non-probe detection in Positive blood culture Not detected Pseudomonas aeruginosa DNA [Presence] by JAYDE with non-probe detection in Positive blood culture Not detected Salmonella sp DNA [Presence] by JAYDE with non-probe detection in Positive blood culture Not detected Serratia marcescens DNA [Presence] by JAYDE with non-probe detection in Positive blood culture Not detected Staphylococcus sp DNA [Presence] by JAYDE with non-probe detection in Positive blood culture Detected Stenotrophomonas maltophilia DNA [Presence] by JYADE with non-probe detection in Positive blood culture Not detected Group A (Streptococcus pyogenes) [id number] Not detected Group B Strep (Streptococcus agalactiae) Not detected Streptococcus sp DNA [Presence] by JAYDE with non-probe detection in Positive blood culture Not detected Shruthi tropicalis DNA [Presence] by JAYDE with non-probe detection in Positive blood culture Not detected Vancomycin resistance Dinora + vanB genes [Presence] by Molecular method Not Applicable Carbapenem resistance blaVIM gene [Presence] by Molecular method Not Applicable Colistin resistance mcr-1 gene [Presence] by Molecular method Not Applicable Methicillin resistance mecA+mecC genes [Presence] in Isolate or Specimen by Molecular genetics method Not Applicable RESIS. GENE COMMENT 1 Antimicrobial resistance can occur via multiple RESIS. GENE COMMENT 2 mechanisms. A Not Detected result for antimicrobial RESIS. GENE COMMENT 3 resistance gene(s) does not indicate ant (more content not included)... Normal [facility] Comment on above: Performed By: #### B MP #### [facility] [address] [place] [address] Diff and CBCon 05-12-2023 Basophils/100 WBC (Bld) 0 % Normal 0-2 [facility] Comment on above: Performed By: #### G LULS #### Point of Care testing , Eosinophils/100 WBC (Bld) 6 % High 1-3 [facility] Comment on above: Performed By: #### G LULS #### Point of Care testing , Erythrocyte distribution width (RBC) [Ratio] 18.7 % High 12.0-14.8 [facility] Comment on above: Performed By: #### G LULS #### Point of Care testing , Hematocrit (Bld) [Volume fraction] 39.3 % Normal 38.8-50.0 [facility] Comment on above: Performed By: #### G LULS #### Point of Care testing , Hemoglobin (Bld) [Mass/Vol] 12.9 g/dL Low 13.0-17.0 [facility] Comment on above: Performed By: #### G LULS #### Point of Care testing , Lymphocytes/100 WBC (Bld) 5 % Low 18-42 [facility] Comment on above: Performed By: #### G LULS #### Point of Care testing , MCH (RBC) [Entitic mass] 27.9 pg Normal 27.5-35.2 [facility] Comment on above: Performed By: #### G LULS #### Point of Care testing , MCV (RBC) [Entitic vol] 85.2 fL Normal 83.5-101 [facility] Comment on above: Performed By: #### G LULS #### Point of Care testing , Mean Corpuscular HGB Conc 32.8 g/dL Normal 32.5-35.6 [facility] Comment on above: Performed By: #### G LULS #### Point of Care testing , Monocytes/100 WBC (Bld) 1 % Low 2-11 [facility] Comment on above: Performed By: #### G LULS #### Point of Care testing , Platelet Estimate Decreased Normal Normal [facility] Comment on above: Performed By: #### G LULS #### Point of Care testing , Platelet mean volume (Bld) [Entitic vol] 8.7 fL Normal 6.6-10.1 [facility] Comment on above: Result Comment: PERF ORMED BY: [facility] [address] [place] [address] PATHOLOGIST DISTRIBUTOR OF DIRECTORIES GINA CARDONA M.D. Performed By: #### G LULS #### Point of Care testing , Platelet Morphology Normal Normal Normal [facility] Comment on above: Result Comment: PERF ORMED BY: [facility] [address] [place] [address] PATHOLOGIST DISTRIBUTOR OF DIRECTORIES GINA CARDONA M.D. Performed By: #### G LULS #### Point of Care testing , Platelets (Bld) [#/Vol] 120 10*3/uL Low 150-450 [facility] Comment on above: Performed By: #### G LULS #### Point of Care testing , Polychromasia Slight Normal [facility] Comment on above: Performed By: #### G LULS #### Point of Care testing , RBC (Bld) [#/Vol] 4.61 10*6/uL Normal 3.90-5.60 [facility] Comment on above: Performed By: #### G LULS #### Point of Care testing , Segmented neutrophils/100 WBC (Bld) 88 % High 50-70 [facility] Comment on above: Performed By: #### G LULS #### Point of Care testing , Tear Drop Cells Slight Normal [facility] Comment on above: Performed By: #### G LULS #### Point of Care testing , WBC (Bld) [#/Vol] 6.5 10*3/uL Normal 4.1-10.5 [facility] Comment on above: Performed By: #### G LULS #### Point of Care testing , Eosinophils/100 WBC Manual c nt (Bld)Ordered By: Stanley Burt on 05-12-2023 Eosinophils/100 WBC (Bld) 6 % 1-3 [facility] Glucose Poct Glucometerson 0 05-12-2023 Glucose [Mass/Vol] 200 mg/dL Normal [facility] Comment on above: Result Comment: [facility] Glucose Reference Range is dependent on time and content of last meal. Glucose of more than 200 mg/dL in a nonstressed, ambulatory subject supports the diagnosis of Diabetes Mellitus. PERFORMED BY: [address] [place] [address] PATHOLOGIST DISTRIBUTOR OF DIRECTORIES GINA CARDONA M.D. Performed By: #### G LULS #### Point of Care testing , Commemt1 Glu2: Cleaned Meter Normal [facility] Comment on above: Result Comment: PERF ORMED BY: [facility] [address] [place] [address] PATHOLOGIST DISTRIBUTOR OF DIRECTORIES GINA CARDONA M.D. Performed By: #### G LULS #### Point of Care testing , Glucose [Mass/Vol] 219 mg/dL Normal [facility] Comment on above: Result Comment: [place] Glucose Reference Range is dependent on time and content of last meal. Glucose of more than 200 mg/dL in a nonstressed, ambulatory subject supports the diagnosis of Diabetes Mellitus. Performed By: #### G LULS #### Point of Care testing , Commemt1 Glu2: Cleaned Meter [facility] Comment on above: Result Comment: PERF ORMED BY: [address] [place] [address] PATHOLOGIST DISTRIBUTOR OF DIRECTORIES GINA CARDONA M.D. Performed By: #### G LULS ####Point of Care testing, Glucose [Mass/Vol] 111 mg/dL Normal [facility] Comment on above: Result Comment: [place] om Glucose Reference Range is dependent on time and content of last meal. Glucose of more than 200 mg/dL in a nonstressed, ambulatory subject supports the diagnosis of Diabetes Mellitus. Performed By: #### G LULS ####Point of Care testing, Commemt1 Glu2: Cleaned Meter [facility] Comment on above: Result Comment: PERF ORMED BY: [address] [place] [address] PATHOLOGIST DISTRIBUTOR OF DIRECTORIES GINA CARDONA M.D. Performed By: #### G LULS #### Point of Care testing , Glucose [Mass/Vol] 161 mg/dL Normal [facility] Comment on above: Result Comment: [place] Glucose Reference Range is dependent on time and content of last meal. Glucose of more than 200 mg/dL in a nonstressed, ambulatory subject supports the diagnosis of Diabetes Mellitus. Performed By: #### G LULS #### Point of Care testing , Gram stain for investigation of transfusion reactionOrdered By: Donita Armstrong on 05-12-2023 Microscopic observation Gram stain Nom (Unsp spec) [facility] Haptoglobinon 05-12-2023 Haptoglobin 93 mg/dL Normal 44-215 [facility] [facility] Comment on above: Result Comment: Hemo lysis is present at a level that could interfere with the result. PERFORMED BY: [address] [place] [id number] PATHOLOGIST DISTRIBUTOR OF DIRECTORIES GINA CARDONA M.D. Performed By: #### G LULS #### Point of Care testing , Haptoglobin [Mass/volume] in Serum or PlasmaOrdered By: Stanley Burt on 05-12-2023 Haptoglobin [Mass/Vol] 93 mg/dL 44-215 [facility] Comment on above: Hemolysis is present at a level that could interfere with the result. Hemogram CBC Without Diffon 05-12-2023 Erythrocyte distribution width (RBC) [Ratio] 18.8 % High 12.0-14.8 [facility] Comment on above: Performed By: #### G LULS #### Point of Care testing , Hematocrit (Bld) [Volume fraction] 44.3 % Normal 38.8-50.0 [facility] Comment on above: Performed By: #### G LULS #### Point of Care testing , Hemoglobin (Bld) [Mass/Vol] 14.6 g/dL Normal 13.0-17.0 [facility] Comment on above: Performed By: #### G LULS #### Point of Care testing , MCH (RBC) [Entitic mass] 28.2 pg Normal 27.5-35.2 [facility] Comment on above: Performed By: #### G LULS #### Point of Care testing , MCV (RBC) [Entitic vol] 85.8 fL Normal 83.5-101 [facility] Comment on above: Performed By: #### G LULS #### Point of Care testing , Mean Corpuscular HGB Conc 32.9 g/dL Normal 32.5-35.6 [facility] Comment on above: Performed By: #### G LULS #### Point of Care testing , Platelet mean volume (Bld) [Entitic vol] 9.2 fL Normal 6.6-10.1 [facility] Comment on above: Result Comment: PERF ORMED BY: [facility] [address] [place] [address] PATHOLOGIST DISTRIBUTOR OF DIRECTORIES GINA CARDONA M.D. Performed By: #### G LULS #### Point of Care testing , Platelets (Bld) [#/Vol] 139 10*3/uL Low 150-450 [facility] Comment on above: Performed By: #### G LULS #### Point of Care testing , RBC (Bld) [#/Vol] 5.17 10*6/uL Normal 3.90-5.60 [facility] Comment on above: Performed By: #### G ANASTASIIA #### Point of Care testing , WBC (Bld) [#/Vol] 9.2 10*3/uL Normal 4.1-10.5 [facility] Comment on above: Performed By: #### Hannah LAURENT #### Point of Care testing , Rc 05-12-2023 L ------ Specimen: [id number] Received: 05/12/23 Status: SIMÓN Blaire Num: [id number] Spec Type: Impression Subm Dr: Eliezer Newell MD Tissues: PATHPER Procedures: PATHREVIEW Age/ Patient Sex Location Account Attending Physician Taurus Garcia 77/[facility] [id number] Suraj Razo MD SPEC NUM: [id number] RECD: 05/12/23 STATUS: SIMÓN KATZ NUM: [id number] SUMI: 05/12/23- SUBM DR: Eliezer Newell MD ENTERED: 05/12/[address] [facility] [address]: SPEC TYPE: Impression DEPT: DE ENTERED BY: [id number] RECV BY: [id number] ORDERED: PATHREVIEW ORDERED: PATHREVIEW Pathologist Review Abnormal CBC for peripheral blood smear review per request of clinician: - Mild anemia of normocytic type, including moderate anisocytosis with a few microcytes, and at least rare elliptocytes, acanthocytes, polychromatophils, and schistocytes - Mild thrombocytopenia - Reactive percentage increase of neutrophils, moderate lymphocytopenia, occasional atypical reactive lymphocytes of the paraimmunoblasts like cells, and at least rare plasmacytoid cells of the small lymphocytes COMMENT: -The cause of mild anemia and mild thrombocytopenia in this case is an elderly male patient is most likely multifactorial in etiology, including the stated history of CKD, myasthenia gravis, and pulmonary emboli. The findings of a few atypical reactive lymphocytes are i nteresting in this case, and may suggest a need to correlate with SPE or other immunology profile if indicated. CPT: 51172 Specimen: [id number] Received: 05/12/23 Status: SIMÓN Katz Num: [id number] Spec Type: Impression Subm Dr: Eliezer Newell MD Tissues: PATHPER Procedures: PATHREVIEW Patient: Taurus Garcia [id number] (Continued) Specimen: [id number] Received: 05/12/23 (Continued) Signed (signature on file) Mira Garcia MD 05/16/23 1218 Specimen: [id number] Received: 05/12/23 Status: SIMÓN Katz Num: [id number] Spec Type: Impression Subm Dr: Eliezer Newell MD Tissues: PATHPER Procedures: PATHREVIEW Patient: Taurus Garcia [id number] (Continued) Specimen: [id number] Received: 05/12/23-1919 (Continued) CBC Date Time Test Result Flag (u) Normal Range 05/11/23 0352 Neut % (Auto) 89.3 . % Lymp % (Auto) 6.5 . % Turner % (Auto) 3.5 . % Eos % (Auto) 0.3 . % Baso % (Auto) 0.4 . % NRBC% 0.0 0-0.5 /100 WBC Neut # (Auto) 8.8 H 1.8-7.7 x10E3/uL Lymph # (Auto) 0.6 L 1.00-4.8 x10E3/uL Turner # (Auto) 0.3 0.0-0.8 x10E3/uL Eos # (Auto) 0.0 0.0-0.45 x10E3/uL Baso# (Auto) 0.0 0.0-0.2 x10E3/uL 05/12/23 1442 WBC 6.5 4.1-10.5 X10E3/uL RBC 4.61 3.90-5.60 X10E6/uL HGB 12.9 L 13.0-17.0 g/dL HCT 39.3 38.8-50.0 % MCV 85.2 83.5-101 fl MCH 27.9 27.5-35.2 pg MCHC 32.8 32.5-35.6 g/dL RDW 18.7 H 12.0-14.8 % Plt 120 L 150-450 x10E3/uL MPV 8.7 6.6-10.1 fl Seg 88 H 50-70 % Lymph 5 L 18-42 % Turner 1 L 2-11 % Eos 6 H 1-3 % Baso 0 0-2 % Polychrom Slight Tear Drop Slight Plt Est Decreased Normal Plt Morphology Normal Normal Specimen: [id number] Received: 05/12/23 Status: SIMÓN Barajasjimena Num: [id number] Spec Type: Impression Subm Dr: Eliezer Newell MD Tissues: PATHPER Procedures: PATHREVIEW Patient: Taurus Garcia [id number] (Continued) Signed (signature on file) Mira Garcia MD 05/16/23 1216 [facility] Lymphocytes/100 WBC Manual c nt (Bld)Ordered By: Stanley Burt on 05-12-2023 Lymphocytes/100 WBC (Bld) 5 % 18-42 [facility] Monocytes/100 WBC Manual cnt (Bld)Ordered By: Stanley Burt on 05-12-2023 Monocytes/100 WBC (Bld) 1 % 2-11 [facility] No Panel InformationOrdered By: Stanley Burt on 05-12-2023 Slides for Pathologist Review Ordered path review [facility] Pathologist Slide Reviewon 0 05-12-2023 Pathologist Slide Review Ordered Path Review Normal [facility] Comment on above: Order Comment: Comme nt please evaluate for schistocytes Result Comment: PERF ORMED BY: [facility] [address] [place] [address] PATHOLOGIST DISTRIBUTOR OF DIRECTORIES GINA CARDONA M.D. Performed By: #### G LULS #### Point of Care testing , Platelet adequacy [Presence] in Blood by Light microscopyOrdered By: Stanley Burt on 05-12-2023 Platelets LM Ql (Bld) Decreased Normal [facility] Platelet morphology finding [Identifier] in BloodOrdered By: Stanley Burt on 05-12-2023 Platelet morphology finding Nom (Bld) Normal Normal [facility] Polychromasia [Presence] in Blood by Light microscopyOrdered By: Stanley Burt on 05-12-2023 Polychromasia LM Ql (Bld) Slight [facility] RBC morphologyOrdered By: Farhan Burt on 05-12-2023 RBC morphology finding Nom (Bld) N/A [facility] Redraw Potassiumon 3 Potassium [Moles/Vol] 3.7 mmol/L Normal 3.5-5.1 [facility] Comment on above: Order Comment: Pleas e draw a gold on ice and deliver to lab. MLG Result Comment: Hemo lysis is present at a level that could interfere with the result. PERFORMED BY: [facility] [address] [place] [address] PATHOLOGIST DISTRIBUTOR OF DIRECTORIES GINA CARDONA M.D. Performed By: #### G LULS #### Point of Care testing , Redraw Potassium Normal 3.5-5.1 [facility] Comment on above: Result Comment: Spec imen hemolyzed, redraw requested PERFORMED BY: [place] [address] PATHOLOGIST DISTRIBUTOR OF DIRECTORIES GINA CARDONA M.D. Performed By: #### G LULS #### Point of Care testing , Segmented neutrophils/100 WB C Manual cnt (Bld)Ordered By: Stanley Burt on 05-12-2023 Segmented neutrophils/100 WBC (Bld) 88 % 50-70 [facility] Teardrop cell detectionOrder ed By: Stanley Burt on 05-12-2023 Dacrocytes LM Ql (Bld) Slight [facility] Urine Cultureon 05-12-2023 Bacteria identified Cx Nom (U) No Growth 2 Days PERFORMED BY: [place] [address] PATHOLOGIST DISTRIBUTOR OF DIRECTORIES GINA CARDONA M.D. Normal [facility] Comment on above: Performed By: #### C UU ####[facility] [id number] [place] [id number] [facility] XR chest 1V portableon 05-12 XR chest 1V portable [facility] Main [place] [address] [place] [address] XRay Report Signed Patient: Taurus Garcia MR#: [id number] : 1945 Acct:[id number] Age/Sex: 77 / M ADM Date: 05/10/23 Loc: Room: [address] [place] [address] Type: ADM IN Attending Dr: Eliezer Newell MD Copies to: MD Eliezer Wood MD Ordering Provider: Lexy Chappell MD Date of Service: 05/12/23 XR/XR chest 1V portable: Ett placement Plain film chest single view HISTORY: Follow-up assessment of intubated patient COMPARISON: 05/11/2023 FINDINGS: SUPPORT DEVICES: Tubes unchanged. POSTSURGICAL CHANGES: None HEART: Within normal limits PULMONARY DEVORA: Within normal limits MEDIASTINUM: Unremarkable LUNGS AND PLEURA: No acute lung process, pleural effusion or pneumothorax identified. Continued mild interstitial prominence. BONY STRUCTURES: Intact ADDITIONAL FINDINGS None XR/XR chest 1V portable IMPRESSION: Stable chest Impression dictated by: Aaron Mock M.D.05/12/2023 8:00 AM Dictation Location: [place] [address] Transcribed By: [facility] 05/12/23 08 Dictated By: Aaron Mock DO 05/12/23 0759 Signed By: 05/12/23 0800 Normal [facility] Alanine aminotransferase [En zymatic activity/volume] in Serum or PlasmaOrdered By: Jarret Garza on 05-11-2023 ALT [Catalytic activity/Vol] 23 U/L 7-52 [facility] Albumin [Mass/volume] in Ser um or Plasma by Bromocresol green (BCG) dye binding methoOrdered By: Jarret Garza on 05-11-2023 Albumin BCG dye [Mass/Vol] 3.1 g/dL 3.5-5.7 [facility] Alkaline phosphatase [Enzyma tic activity/volume] in Serum or PlasmaOrdered By: Jarret Garza on 05-11-2023 ALP [Catalytic activity/Vol] 55 U/L 34-104 [facility] Arterial Blood Gason 023 ABG Base Excess -0.9 mmol/L Normal -3.0-3.0 [facility] Comment on above: Performed By: #### A BG ####Point of Care testing, ABG Frac Inspired O2 40 % Normal [facility] Comment on above: Performed By: #### A BG ####Point of Care testing, ABG Oxygen Content 8.4 mmol/L Normal 6.6-9.7 [facility] Comment on above: Performed By: #### A BG ####Point of Care testing, ABG Oxygen Saturation 97.5 % Normal 95.0-100.0 [facility] Comment on above: Performed By: #### A BG ####Point of Care testing, ABG PCO2 45.6 mm[Hg] High 35.0-45.0 [facility] Comment on above: Performed By: #### A BG ####Point of Care testing, ABG PEEP 5 [facility] Comment on above: Performed By: #### A BG ####Point of Care testing, ABG PH 7.36 Normal 7.35-7.45 [facility] Comment on above: Performed By: #### A BG ####Point of Care testing, ABG PO2 104.3 mm[Hg] High 80.0-100.0 [facility] Comment on above: Performed By: #### A BG ####Point of Care testing, ABG TV 500 mL [facility] Comment on above: Performed By: #### A BG ####Point of Care testing, CO2 [Moles/Vol] 26.3 mmol/L Normal 23.0-27.0 [facility] Comment on above: Performed By: #### A BG ####Point of Care testing, HCO3 (Bld) [Moles/Vol] 24.9 mmol/L Normal 23.0-29.0 [facility] Comment on above: Performed By: #### A BG ####Point of Care testing, Respiratory Critical [facility] Comment on above: Result Comment: Crit ical Value called on: 05/11/2023 at 05:03 PERFORMED BY: [facility] [address] [place] [address] PATHOLOGIST DISTRIBUTOR OF DIRECTORIES GINA CARDONA M.D. Performed By: #### A BG ####Point of Care testing, Set Respiratory Rate 10 [facility] Comment on above: Performed By: #### A BG ####Point of Care testing, VBG Draw Site Right Radial [facility] Comment on above: Performed By: #### A BG ####Point of Care testing, Ventilator Mode AC [facility] Comment on above: Performed By: #### A BG ####Point of Care testing, Aspartate aminotransferase [ Enzymatic activity/volume] in Serum or PlasmaOrdered By: Jarret Garza on 05-11-2023 AST [Catalytic activity/Vol] 28 U/L 13-39 [facility] Bilirubin.total [Mass/volume ] in Serum or PlasmaOrdered By: Jarret Garza on 05-11-2023 Bilirubin [Mass/Vol] 0.9 mg/dL 0.3-1.0 [facility] Complete Blood Count Auto Di ffon 05-11-2023 Basophils (Bld) [#/Vol] 0.0 10*3/uL Normal 0.0-0.2 [facility] Comment on above: Result Comment: PERF ORMED BY: [facility] [place] [address] PATHOLOGIST DISTRIBUTOR OF DIRECTORIES GINA CARDONA M.D. Performed By: #### G LULS #### Point of Care testing , Basophils/100 WBC (Bld) 0.4 % Normal . [facility] Comment on above: Performed By: #### G LULS #### Point of Care testing , Eosinophils (Bld) [#/Vol] 0.0 10*3/uL Normal 0.0-0.45 [facility] Comment on above: Performed By: #### G LULS #### Point of Care testing , Eosinophils/100 WBC (Bld) 0.3 % Normal . [facility] Comment on above: Performed By: #### G LULS #### Point of Care testing , Erythrocyte distribution width (RBC) [Ratio] 18.6 % High 12.0-14.8 [facility] Comment on above: Performed By: #### G LULS #### Point of Care testing , Hematocrit (Bld) [Volume fraction] 39.4 % Normal 38.8-50.0 [facility] Comment on above: Performed By: #### G LULS #### Point of Care testing , Hemoglobin (Bld) [Mass/Vol] 13.0 g/dL Normal 13.0-17.0 [facility] Comment on above: Performed By: #### G LULS #### Point of Care testing , Lymphocytes (Bld) [#/Vol] 0.6 10*3/uL Low 1.00-4.8 [facility] Comment on above: Performed By: #### G LULS #### Point of Care testing , Lymphocytes/100 WBC (Bld) 6.5 % Normal . [facility] Comment on above: Performed By: #### Hannah BARCENASLS #### Point of Care testing , MCH (RBC) [Entitic mass] 27.9 pg Normal 27.5-35.2 [facility] Comment on above: Performed By: #### G SWAPNALS #### Point of Care testing , MCV (RBC) [Entitic vol] 84.4 fL Normal 83.5-101 [facility] Comment on above: Performed By: #### G SWAPNALS #### Point of Care testing , Mean Corpuscular HGB Conc 33.1 g/dL Normal 32.5-35.6 [facility] Comment on above: Performed By: #### G SWAPNALS #### Point of Care testing , Monocytes (Bld) [#/Vol] 0.3 10*3/uL Normal 0.0-0.8 [facility] Comment on above: Performed By: #### Hannah BARCENASLS #### Point of Care testing , Monocytes/100 WBC (Bld) 3.5 % Normal . [facility] Comment on above: Performed By: #### Hannah BARCENASLS #### Point of Care testing , Neutrophils (Bld) [#/Vol] 8.8 10*3/uL High 1.8-7.7 [facility] Comment on above: Performed By: #### G SWAPNALS #### Point of Care testing , Neutrophils/100 WBC (Bld) 89.3 % Normal . [facility] Comment on above: Performed By: #### G SWAPNALS #### Point of Care testing , NRBC% 0.0 /100{WBC} Normal 0-0.5 [facility] Comment on above: Performed By: #### Hannah BARCENASLS #### Point of Care testing , Platelet mean volume (Bld) [Entitic vol] 9.2 fL Normal 6.6-10.1 [facility] Comment on above: Performed By: #### Hannah BARCENASLS #### Point of Care testing , Platelets (Bld) [#/Vol] 110 10*3/uL Low 150-450 [facility] Comment on above: Performed By: #### G ANASTASIIA #### Point of Care testing , RBC (Bld) [#/Vol] 4.67 10*6/uL Normal 3.90-5.60 [facility] Comment on above: Performed By: #### G ANASTASIIA #### Point of Care testing , WBC (Bld) [#/Vol] 9.8 10*3/uL Normal 4.1-10.5 [facility] Comment on above: Performed By: #### G ANASTASIIA #### Point of Care testing , Comprehensive Metabolic Pane rc 05-11-2023 Albumin [Mass/Vol] 3.1 g/dL Low 3.5-5.7 [facility] Comment on above: Performed By: #### Elder Wong #### [facility] [address] Albumin/Globulin [Mass ratio] 1.1 {ratio} Normal [facility] Comment on above: Performed By: #### Elder Wong #### [facility] [address] [place] [address] [place] ALP [Catalytic activity/Vol] 55 U/L Normal 34-104 [facility] Comment on above: Performed By: #### Elder Wong #### [facility] [address] [place] [address] [place] ALT [Catalytic activity/Vol] 23 U/L Normal 7-52 [facility] Comment on above: Performed By: #### Elder Wong #### [facility] [address] [place] [address] [place] Anion gap [Moles/Vol] 14.1 mmol/L Normal 6.0-15.0 [facility] Comment on above: Performed By: #### Elder Wong #### [facility] [address] [place] [address] [place] AST [Catalytic activity/Vol] 28 U/L Normal 13-39 [facility] Comment on above: Performed By: #### Elder Wong #### [facility] [address] Bilirubin [Mass/Vol] 0.9 mg/dL Normal 0.3-1.0 [facility] Comment on above: Performed By: #### Elder Wong #### [address] Calcium [Mass/Vol] 8.6 mg/dL Normal 8.6-10.3 [facility] Comment on above: Performed By: #### Elder Wong #### [address] Chloride [Moles/Vol] 103 mmol/L Normal 98-107 [facility] Comment on above: Performed By: #### Elder Wong #### [address] CO2 [Moles/Vol] 23.4 mmol/L Normal 21.0-31.0 [facility] Comment on above: Performed By: #### Elder Wong #### [address] Creatinine [Mass/Vol] 1.22 mg/dL Normal 0.70-1.30 [facility] Comment on above: Performed By: #### Elder Wong #### [address] Creatinine Clr Calc Pharmacy 70.49 [facility] Comment on above: Performed By: #### Elder Wong #### [facility] [address] [place] [address] GFR/1.73 sq M.predicted MDRD (S/P/Bld) [Vol rate/Area] mL/min/{1.73_m2} [facility] Comment on above: Performed By: #### Elder Wong #### [address] Globulin (S) [Mass/Vol] 2.7 g/dL [facility] Comment on above: Performed By: #### Elder Wong #### [address] Glucose [Mass/Vol] 170 mg/dL High 70-100 [facility] Comment on above: Result Comment: [facility] Glucose Reference Range is dependent on time and content of last meal. Glucose of more than 200 mg/dL in a nonstressed, ambulatory subject supports the diagnosis of Diabetes Mellitus. ADA recommended reference range Performed By: #### R ARJUN Wong #### [facility] [address] Potassium [Moles/Vol] 3.5 mmol/L Normal 3.5-5.1 [facility] Comment on above: Performed By: #### R ARJUN Wong #### [facility] [address] Protein [Mass/Vol] 5.8 g/dL Low 6.4-8.9 [facility] Comment on above: Performed By: #### R ARJUN Wong #### [facility] [address] [place] [address] Sodium [Moles/Vol] 137 mmol/L Normal 136-145 [facility] Comment on above: Performed By: #### R ARJUN Wong #### [facility] [address] [place] [address] [place] Urea nitrogen [Mass/Vol] 21 mg/dL Normal 7-25 [facility] Comment on above: Performed By: #### R ARJUN Wong #### [facility] [address] [place] [address] [place] Dipstick and Microscopicon 0 05-11-2023 Appearance (U) Clear Normal Clear [facility] Comment on above: Order Comment: Name Collection Type:: Harrell Catheter Performed By: #### G LULS #### Point of Care testing , Bacteria,Urine None Seen Normal None Seen [facility] Comment on above: Order Comment: Name Collection Type:: Harrell Catheter Performed By: #### G LULS #### Point of Care testing , Bilirubin,Urine Negative Normal Negative [facility] Comment on above: Order Comment: Name Collection Type:: Harrell Catheter Performed By: #### G LULS #### Point of Care testing , Color (U) Yellow Normal Yellow [facility] Comment on above: Order Comment: Name Collection Type:: Harrell Catheter Performed By: #### G LULS #### Point of Care testing , Glucose Ql (U) Normal Normal Normal [facility] Comment on above: Order Comment: Name Collection Type:: Harrell Catheter Performed By: #### G LULS #### Point of Care testing , Hyaline Casts,Urine 9-19 High 0-8 [facility] Comment on above: Order Comment: Name Collection Type:: Harrell Catheter Result Comment: PERF ORMED BY: [address] [place] [address] PATHOLOGIST DISTRIBUTOR OF DIRECTORIES GINA CARDONA M.D. Performed By: #### G LULS #### Point of Care testing , Ketones Ql (U) 1+ High Negative [facility] Comment on above: Order Comment: Name Collection Type:: Harrell Catheter Performed By: #### G LULS #### Point of Care testing , Leukocyte esterase Test strip Ql (U) Negative Normal Negative [facility] Comment on above: Order Comment: Name Collection Type:: Harrell Catheter Performed By: #### G LULS #### Point of Care testing , Nitrite,Urine Negative Normal Negative [facility] Comment on above: Order Comment: Name Collection Type:: Harrell Catheter Performed By: #### G LULS #### Point of Care testing , Occult Blood,Urine 2+ High Negative [facility] Comment on above: Order Comment: Name Collection Type:: Harrell Catheter Result Comment: PERF ORMED BY: [facility] [address] [place] [address] PATHOLOGIST DISTRIBUTOR OF DIRECTORIES GINA CARDONA M.D. Performed By: #### G LULS #### Point of Care testing , pH (U) 5.5 [pH] Normal 5.0-9.0 [facility] Comment on above: Order Comment: Name Collection Type:: Harrell Catheter Performed By: #### G LULS #### Point of Care testing , Protein,Urine Trace High Negative [facility] Comment on above: Order Comment: Name Collection Type:: Harrell Catheter Performed By: #### G LULS #### Point of Care testing , RBC,Urine 20-49 High 0-4 [facility] Comment on above: Order Comment: Name Collection Type:: Harrell Catheter Performed By: #### G LULS #### Point of Care testing , Specificy Paron,Urine 1.014 Normal 1.001-1.03 0 [facility] Comment on above: Order Comment: Name Collection Type:: Harrell Catheter Performed By: #### G LULS #### Point of Care testing , Squamous Epithelial Cell,Urine None Seen Normal 0-2 [facility] Comment on above: Order Comment: Name Collection Type:: Harrell Catheter Performed By: #### G LULS #### Point of Care testing , Urobilinogen,Urine Normal Normal Normal [facility] Comment on above: Order Comment: Name Collection Type:: Harrell Catheter Performed By: #### G LULS #### Point of Care testing , WBC LM.HPF (Urine sed) [#/Area] 0 /[HPF] Normal 0-4 [facility] Comment on above: Order Comment: Name Collection Type:: Harrell Catheter Performed By: #### G LULS #### Point of Care testing , Globulin Calc (S) [Mass/Vol] Ordered By: Jarret Garza on 05-11-2023 Globulin (S) [Mass/Vol] 2.7 g/dL [facility] Glucose Poct Glucometerson 0 05-11-2023 Glucose [Mass/Vol] 168 mg/dL Normal [facility] Comment on above: Result Comment: [facility] [facility] Glucose Reference Range is dependent on time and content of last meal. Glucose of more than 200 mg/dL in a nonstressed, ambulatory subject supports the diagnosis of Diabetes Mellitus. PERFORMED BY: [facility] [address] [address] PATHOLOGIST DISTRIBUTOR OF DIRECTORIES GINA CARDONA M.D. Performed By: #### G LULS #### Point of Care testing , Commemt1 Glu2: Cleaned Meter Normal [facility] Comment on above: Result Comment: PERF ORMED BY: [facility] [address] [place] [id number] PATHOLOGIST DISTRIBUTOR OF DIRECTORIES GINA CARDONA M.D. Performed By: #### G LULS #### Point of Care testing , Glucose [Mass/Vol] 169 mg/dL Normal [facility] Comment on above: Result Comment: [place] [facility] Glucose Reference Range is dependent on time and content of last meal. Glucose of more than 200 mg/dL in a nonstressed, ambulatory subject supports the diagnosis of Diabetes Mellitus. Performed By: #### G LULS #### Point of Care testing , Glucose [Mass/Vol] 171 mg/dL Normal [facility] Comment on above: Result Comment: [place] [facility] Glucose Reference Range is dependent on time and content of last meal. Glucose of more than 200 mg/dL in a nonstressed, ambulatory subject supports the diagnosis of Diabetes Mellitus. PERFORMED BY: [address] [place] [id number] PATHOLOGIST DISTRIBUTOR OF DIRECTORIES GINA CARDONA M.D. Performed By: #### G ANASTASIIA ####Point of Care testing, INR in Platelet poor plasma by Coagulation assayOrdered By: Jarret Garza on 05-11-2023 INR Coag (PPP) [Relative time] 1.4 {INR} [facility] Comment on above: INR Therapeutic Rang e A) Pre- and Peroperative OAT started two weeks before surgery. NOT HIP SURGERY: 1.5 - 2.5 HIP SURGERY: 2 - 3B) Primary and secondary prevention of venous THROMBOSIS: 2 - 3C) Active venous thrombosis, pulmonary embolismand prevention of recurrent venous thrombosis: 2 - 3D) Prevention of arterial thromboembolismincluding patients with mechanical heart valves: 3 - 4.5 Magnesiumon 05-11-2023 Magnesium [Mass/Vol] 1.9 mg/dL Normal 1.9-2.7 [facility] Comment on above: Result Comment: PERF ORMED BY: [facility] [address] [place] [address] PATHOLOGIST DISTRIBUTOR OF DIRECTORIES GINA CARDONA M.D. Performed By: #### R ARJUN Wong #### [facility] [address] [place] [id number] [facility] Phosphate [Mass/volume] in [place] or PlasmaOrdered By: Obaliyadavaldemar Daromar on 05-11-2023 Phosphate [Mass/Vol] 2.7 mg/dL 3.7-7.2 [facility] Phosphoruson 05-11-2023 Phosphate [Mass/Vol] 2.7 mg/dL Low 3.7-7.2 [facility] Comment on above: Performed By: #### R ARJUN K #### [facility] [address] [place], [place] [id number] [place] Protein [Mass/volume] in Ser um or PlasmaOrdered By: Obaydah Daromar on 05-11-2023 Protein [Mass/Vol] 5.8 g/dL 6.4-8.9 [facility] Prothrombin Time INRon 05-11 INR Coag (PPP) [Relative time] 1.4 {INR} Normal [facility] Comment on above: Result Comment: INR Therapeutic Range A) Pre- and Peroperative OAT started two weeks before surgery. NOT HIP SURGERY: 1.5 - 2.5 HIP SURGERY: 2 - 3 B) Primary and secondary prevention of venous THROMBOSIS: 2 - 3 C) Active venous thrombosis, pulmonary embolism and prevention of recurrent venous thrombosis: 2 - 3 D) Prevention of arterial thromboembolism including patients with mechanical heart valves: 3 - 4.5 PERFORMED BY: [place] [address] PATHOLOGIST DISTRIBUTOR OF DIRECTORIES GINA CRADONA M.D. Performed By: #### R ARJUN K #### [facility] [address] [place], [place] [id number] [facility] PT Coag (PPP) [Time] 17.1 s High 9.0-12.9 [facility] Comment on above: Result Comment: A he matocrit value greater than 55% may lead to inaccurate results in coagulation testing. Patients having hematocrit values >55% require a special collection tube for coagulation studies. Please contact the laboratory at [phone] for redraw instructions. Performed By: #### R ARJUN K #### [facility] [address] [place], [place] [id number] [place] Prothrombin time (PT)Ordered By: Jarret Garza on 05-11-2023 PT Coag (PPP) [Time] 17.1 s 9.0-12.9 [facility] Comment on above: A hematocrit value g reater than 55% may lead to inaccurate results in coagulation testing. Patients having hematocrit values >55% require a special collection tube for coagulation studies. Please contact the laboratory at [phone] for redraw instructions. Serum or plasma albumin/glob ulin mass ratioOrdered By: Jarret Garza on 05-11-2023 Albumin/Globulin [Mass ratio] 1.1 {ratio} [facility] Triglycerideson 05-11-2023 Triglyceride [Mass/Vol] 221 mg/dL High 35-149 [facility] Comment on above: Result Comment: TRIG ATP III CLASSIFICATION TRIG less than 150 mg/dL Normal TRIG 150-199 mg/dL Borderline high TRIG 200-500 mg/dL High TRIG greater than 500 mg/dL Very high Standard traceable to the Center for Disease Conrtrol and Prevention (CDC) test method. PERFORMED BY: [place] [address] PATHOLOGIST DISTRIBUTOR OF DIRECTORIES GINA CARDONA M.D. Performed By: #### G LULS #### Point of Care testing , XR abdomen 1Von 05-11-2023 XR abdomen 1V [facility] Main [place] [id number] XRay Report Signed Patient: Taurus Garcia MR#: [id number] : 1945 Acct:[id number] Age/Sex: 77 / M ADM Date: 05/10/23 Loc: Room: [address] [place] [address] Type: ADM IN Attending Dr: Jarret Garza MD Copies to: Jarret Garza MD Ordering Provider: Jarret Garza MD Date of Service: 05/10/23 XR/XR abdomen 1V: og tube PORTABLE SINGLE VIEW ABDOMEN COMPARISON: None CLINICAL DATA: NG tube placement Supine view of the left abdomen was obtained. The NG tube extends into the stomach and the tip is beyond the GE junction. No dilated small bowel loops are present. There is levoscoliotic curvature and degenerative change at the lumbar spine. XR/XR abdomen 1V IMPRESSION: NG TUBE WITHIN THE STOMACH. Impression dictated by: Aide Moe M.D.05/11/2023 7:15 AM Dictation Location: RADIO-PC-12 Transcribed By: KRISSY 05/11/2315 Dictated By: Aide Moe MD 05/11/23713 Signed By: 05/11/2315 [facility] XR chest 1V portableon 05-11 XR chest 1V portable [facility] Main [place] [address] [place] [address] XRay Report Signed Patient: Taurus Garcia MR#: [id number] : 1945 Acct:[id number] Age/Sex: 77 / M ADM Date: 05/10/23 Loc: Room: [address] [place] [address] Type: ADM IN Attending Dr: Jarret Garza MD Copies to: Jarret Garza MD Ordering Provider: Jarret Garza MD Date of Service: 05/11/23 XR/XR chest 1V portable: on vent PORTABLE AP RECUMBENT CHEST 0539 hours CLINICAL HISTORY: Respiratory distress on ventilator COMPARISON: 05/10/2023 Tubes and lines are unchanged position. There is continued shallow inspiration. The cardiac and mediastinal contours remain mildly prominent. There is minor interstitial change and subtle left asymmetric groundglass density. There is no new consolidation. No sizable effusion or pneumothorax is noted. There is thoracolumbar scoliotic curvature. XR/XR chest 1V portable IMPRESSION: Continued cardiomegaly and mild parenchymal changes. Impression dictated by: Aide Moe M.D.05/11/2023 7:14 AM Dictation Location: RADIO-PC-12 Transcribed By: KRISSY 05/11/2314 Dictated By: Aide Moe MD 05/11/23 0713 Signed By: 05/11/23713 [facility] Coding Summaryon 03-16-2023 Coding Summary HTMLBase 64 KiltdfxtBTz6xHt+PGhlYWQ+PE 4ZYKYcG07avVVfkM3tM0GNLAaS EjrbAXRYEJoHBgHnpkBrQJ0kzZ NjZXJu IC8+TD4eRSTqWttavXWjl7Y3jD R4S28epv5pPYqbaRO8YYKqKxIh njvqy1tneQa0XBjnYfymCjOi GMCyxB72PJO1vR45Hy36sAJxhF Wsy4fhjJu4NvDvAHZdFXC5nEij MCwzw0NkUQSkQ36fpAKgf6M6 LDEsdHqibUFzVcKtnOL9lB0gBW iletlek7nciuggSla2mv70mRLp q1M9aKJ3L3OgsnV5UMOddWJc TialgETQvK1bemimt8gdctduIr FvWWVpJJl2KSk0PZVuiNxgWkGq RL61UIN3AQNrurQbF5QgJZQq cVumJuP4h8V3Eg0YB8MFXzibE5 VNTUFSWTwvdGQ+QU54mf91Y0Dj HrpqDlq6KPGaBCK7pOS6wZ4f MLKlIOcys9F9sOQ4M2XmlcJfcn 8th2zwAXWzNTmlY59jiRUrf6Z6 MYPvpTY9HBKszMntAmXctA83 Oyc+KFHtyXqgt6HbRpwps4dju6 prkTa0NgsuEWVsddNvfXnzXFM0 d8WtAe7tRVEyeGK2mCI5sX1g SgJjDfB2GAetT356SjFoaNIwLw inJ30uN2ZvsQS+SBAyYfr5GZNt kEopHM3rB1SnWNGcxzbumJSy lQvdHP8yEFCktgwsKXVqgW2pXZ BvQ9q4HaXpVcH3THuyE6IhARSs tpjoAn33bM1jNnHfKqG0TOst X3ScokK3ZRHztHDuEXqcAEZ7Q0 2uh6B1NMQuSJPtVOG7iGI5yU0x bGlnbjogbGVmdDsgdmVydGlj DKphUNhrQ607VCBxgFdeAyKzLD luZyBEYXRlOiAgMDcvMjcvMjAy MzwvdGQ+XWAlNDE0xOhoRBYy uMRmTJxvCh6cvCamqMbiCJ4mNF UxacalELGddV2hSCEpoCZhpTns CK4aKJIowwikg924MaBrOWK9 DSQieWChF2AbjM8yJtYpLMQuNY OjR4FqaAJwBXhsV439LTgeMxQ2 FKAbuyNhZ3OuXHPpsSkpUbO8 i4K4Zu1Ng1JrlkriN4JucEMcJs RkGyhvSDv5U4KyHzrnoSX+PC90 YNIjIC35QGd5MSZ5aRthDBio UXGkF4CfbL8mJuHpSKEnQSNfUh c+PHRhYmxlIHdpZHRoPScxMDAl CvUbwXawXL0bRb1sIMJdVBEs dDyioMXnBjNvr0erNGCrESjkXZ 5vwOtxV0YchKD0SDRbq0h8Uq94 K18dH8EfcDL+AWYodTY8sUB8 wO8cXlByEcE3SWcyT446YdRtpL DgKhaov6lbb9vvnJs8HcV3XBCh mfOisWtbSFB5b4FwZl62T53y IHdpZHRoPSIxNSUiIHZhbGlnbj 0btT3mQb2+OIHnpDC3dLS9xJ6t WqTaXiT3ABaqT652PiBfjHLl Tuzbw3dig2vnuHt8CgVvAUMudm YaoCylQFZ8w0KxYt18F4AqzOkp e8AkWqb4iw14zXVrf4K2mRC5 A7ZzULAcxznstCCocXrsYW5vDU HophfiWMEogY9fDZGeO8c5HiKn DhI3DEbyR2AzveX0DPVazQSf OHEmePHFdO0qfbche6qxrwevPg UrEUQdWCv3OQz3OQRurFthZbRy JUC5TxI5OZW1xTBqiB9umFjp lhmhtH5rWuy+GGM4cJNuyGJZPZ 1lOjwvdGQ+PYQbFJR7dRhzYUhq RSMweX6nOOEdZ3c9VfAlLhO0 MHmxZ1LgjmE7GWIpiGQzJJSmmQ WSzK8arerna8gwdbrwOtRuVMFj NRh7AXt0TWDnjXqxYoXeDQU2 FcJ8EWZ4bKCbjO7nqCswhnotaP 9wOyc+FexcnEftTQE3XCt0F0Tz Efo9HKVocMelYB2oxWTvJNcm Ld1mpYfeeRndGG2wKWZjdldjb9 90BbAqe0dvJMSyyUEnNTjqLJE5 Z64pl9R0WEXmZPZoYVN7pFM9 oX5ffWbfocipfKZgmXbuigRofL ytPLjfWDfbL797VJWiwDobEmCj MCc7I6HkIux8OXLwaRcdVT9d aSElDMaiYq8tpQrnkBqjGR5cWI Ekkyxir851ToSzh8edXBUvvKYv YDhaLWC9E38qc9O0NIErGTWf DZI1nXI7qJ7nbFbmqdetfGBlyH rmvkRzmPljBGggBWorI270PJYm aOemRzRyhQj1B3QaTyj8BZVo jXxjNS3qgZJtWYchXr5ajPqxfH hhDF8zBMPdcvtce025GzSnp9pz VOTlzTKfZZrnDMX2H37es0Y8 AETfIALoOEK1wJU2rT6vvNslqk ogbGVmdDsgdmVydGljYWwtYWxp O241WZVkoZrhVnUfxTzdtyBv EXfcVBt7H2VmGrherLP+PC90YW OiDL05aBPbaWYzb7wanWr5JeWb VGWeNKE2vYtvRWuam0UgNZYz K02ijHYor2J5RYXquYyfvKHuYk KlaFO3qC5uAEfgwiaab1eiufqe Vsufr2bnrl78kB99S37yRTtu GCUmHCEyRKKzPTByqQdowl3teI 9wIi8+WWKuwJM3sRG9oY2uTCLg ZjO5TDrkZ736FjDjwABaKhda h0ooe9criDo5CiC6VCHddaNyxS jmBDA1v2PfKp46E59kPBlaFDXk LKZjEWStNBXzcJxfah4baB6a Ii8+AKLrkWS3eMX1xZ1oTeBaOz S2SCkaS239QfBblXMgKnxxH66c Z0JozTX+OOKqQbh2IWNhnApt IV7xzRIxIUffKa9lDSI0OpQgZe PnYShkI4UxVEGklfwlopnujFP4 FNMuCINvmI36Bs4zxFuuMWDa oBXNcV0suqwvb1kcaumsMjYtXA FvBIb1EOx9WVUttAwkHvQcAHV0 GwF6WKA2rAJrcQ5scWueclnp uY8cK0JvABUxaixwVn24fY7qOk CgVdI8ERvrMak+VEhPTUFTLCBD ANFRMOMAWJV4V6FwRlg0ZYQd eRcpHY6kqCQbDQmcUi7ncBryvC irAS2oOZPivzgeAJAaoT0kOYIh jWMtnKaeOX1rMBAabeqts254 HaEoMLY7OYKosFVwJ6GdzO1uJs WrZBAvDAAkH1OcnWWyROfzS405 AWzgHzB1DLQoduYtL4FuYXZo yJfiQvX8w3N5Fy3sOq0zNb5fZR K0BN43OC55nLJlx5D7xQI0E0Ld JEDntasoydtrvGH3PXXlZKXc lE07aKWeCMiaRw6nb9U9g742FD FbBLEjbG09Uc8ojQwyYILanSTX cG8njvlwg2mshlpvXdUoAMHr KVq2GJt6KZNjgQibYdMiLXF2Dr D6APK9iSTkjX0scRvecnqjiX4l Oyc+FecqNDJzezQ0T6MqFmr7 FGTmnWhvJC9ahJVzQQziMc9xyS qheRyzJP7oZLAmrvhqTBCsxS8e SQSzzHZjnViyWA7iLNSscrff c050ZpQsGCP7RDOvhQNqK9QnfY 6eDiToMVAsLAWtG8GyaNOfIPsy L113QDdmFfW1DHMaufAlU4Ld RQVbvNkzUtR1m3O5Lj7FZKwHNO 28WR54sALyr8E0cPD9V0WwEWBh hhmtoexxkBN0XIHrOLCtqV66 yNCaLQfpJt8ya0O6d880IROuKF OtpX23Un2wiHusUUQzgLXVnC8u ijvdi3hahkarVhNuUAClFQi8 DPd0JWUhhLasVxVzFRG7JiI8HQ E2uPFvyM1uwZhhaoruhG2aEvn+ Z0A6Y9JlQbpauAG+PM25PYVg AI26cWTcdCDzw4qmuTq6GsXpPY VdYLC1zDwaWCggd4VbRUKwL05v xNHay7L4GASuuOfrkXYnZiOw jYM3kH2gCLonctyeg0mywgbgUz ggd5oxcw01jI34V43eRPoiMYYt JMKjPKRdYNWboXoccd1baY2z Ii8+XNExhXB9pVZ4gA9nKlLpDe B0RZjnB221HfYlnYYmVaszp9jf h1dweDt8ZrIwAYQzluJcvKko NGG1m0SkDn12C24uJAbyJTBmFA XePQNsZBWuoXsrjy4vvP1qAg0+ TL1ad1wfpf20uX21gOC+PHRk WCP9sUpePMdcYYVjyS0dAFktTj V2XIBwInKgrU55lZSdNFnlYh4u sQsspNvzOS8yPQMmoyfaf499 TbYqu8snDEMwjMEpYJlgDES3I3 1ou1W7FFKiJCJyBNG9tCO3gR1m bGlnbjogbGVmdDsgdmVydGlj PZpdZFllI788YFSybBhrFiZdrY LsW4ozzpNUOW8rDplznRC+PHRk ZCS9fQjwEJtxZFYmmK9uBUFm U2i4YxDqMjH5FUiwB6GidjC8OJ RnqUDyNEArkSJZsG2ksvbej4dg ycsuXiNdRKUeHFy5GRc2JINz xXlrKzAwWLK1ZhB8HOR5gVKqcQ 4cuAzgjkptpK5uHqh+RklOOjwv dGQ+QXEiYSN9tPxiEAqrTGQh uC9yTZAlZ6d7LkIoLnJ8NTlqW1 WftaB8AGKraIXsXSPghOJXqF2r cfzam6vrorzkPvLjBMOvFQk7 KBj2EHWbdEtlYaZlGGC4RgM1RY J3fMOdfB8tuPjttkgwtD0cWui+ TVJOOjwvdGQ+DZChAEQ9aEfr JEuuTENbcF6pEYAoY3o5JrYrGf H6DDjrU2ReiwS0WKZsqXCkCBVo rRLOnP7aknedt0zfxpjkTyMb LVGuPOt7MUi3OTKwaBuiPaMwGB Q5OfV3YNM6pMIlcJ8woPmvhmwm iC1cQac+WWJ7CCQ0TL49WF99 Y5HoBriboSYjvPL+PHRhYmxlIH rjQZMbTVypWBTdCeQptZiyOJ5w Eg4hRLPcDTAzwKfqjYBoEbQm b2x (more content not included)... Normal [facility] Lab - AP Resultson 3 Lab - AP Results [id number] Normal [facility] Pathology Sendout Teston Pathology Send Out. See Report Normal [facility] Comment on above: Order Comment: Urine for Cytology Performed By: #### 2 [id number] #### [facility] (DEFAULT) [address] [place] [address] Miscellaneous Testing LCon 0 03-10-2023 Misc. Test Result LC See comment Invalid Interpretation Code [facility] Comment on above: Order Comment: not s ure if specimen collected second urination in the morning it is a drop off ..jwilkins Result Comment: orde red wrong and fixed today SD/TB Performed By: #### 1 [id number] #### [facility] (DEFAULT) [address] [place] [address] Rc 03-09-2023 L ------ Specimen: [id number] Received: 03/13/23 Status: SIMÓN Katz Num: [id number] Spec Type: Cytology Subm Dr: Ivan Barnhart MD Tissues: A URINECYTO (URINE) Procedures: Cyto Prepstain, PAPSTN Age/ Patient Sex Location Account Attending Physician Taurus Garcia 77/M [facility] [id number] Ivan Barnhart MD SPEC NUM: [id number] RECD: 03/13/23 STATUS: SIMÓN KATZ NUM: [id number] SUMI: 03/09/23-[address]: Ivan Barnhart MD ENTERED: 03/13/[address] [facility] [address]: Carlos Bonilla SPEC TYPE: Cytology DEPT: [facility] ENTERED BY: [id number] RECV BY: [id number] ORDERED: Cyto Prepstain, PAPSTN ORDERED: Cyto Prepstain, PAPSTN Pathological Diagnosis Urine cytology: - Negative for high-grade urothelial carcinoma - Occasional tiny urothelial clusters are noted - Occasional histiocytes, lymphocytes, and rare PMN CLINICAL HISTORY: C67.9 Gross Description Received is 80 ml yellow slightly hazy unfixed fluid said to have been obtained as urine. ThinPrep is prepared for microscopic examination. (CC/nh) CPT Codes 67498 Specimen: [id number] Received: 03/13/23130 Status: SIMÓN Blaire Num: [id number] Spec Type: Cytology Subm Dr: Ivan Barnhart MD Tissues: A URINECYTO (URINE) Procedures: Cyto Prepstain, PAPSTN Patient: Taurus Garcia [id number] (Continued) Signed (signature on file) Mira Garcia MD 03/15/23 1213 [facility] Miscellaneous Testing LCon 0 03-09-2023 Test Code LC 483680 Invalid Interpretation Code [facility] Comment on above: Order Comment: not s ure if specimen collected second urination in the morning it is a drop off ..ariadnailkins Performed By: #### 1 [id number] #### [facility] (DEFAULT) [address] [place] [address] Test Name LC urine cytology Invalid Interpretation Code [facility] Comment on above: Order Comment: not s ure if specimen collected second urination in the morning it is a drop off ..jwilkins Performed By: #### 1 [id number] #### [facility] (DEFAULT) [address] [place] [address] Provider Orderson 03-09-2023 Provider Orders [id number] Normal [facility] Coding Summaryon 01-26-2023 Coding Summary HTMLBase 64 WfsxyxxrRSz7cOq+PGhlYWQ+PE 3JFBAuP61blXNdaO5lK9CTQYfH ZwziQRKRIOnZGsFonoGhUY2uuF NjZXJu IC8+PW3eVBVmQztfsDJuw5V8cA B8D69qva0aVBvsdWD6PSUdUtSp mdadj7rpgCm0DObqXsptAxGx USJvnU03QPT6cN09Dh56pREumS Ras3ncdSa3TuAyPWHoHRP6yKbs AYdqc8ZiPCGuM93jfXBja8B0 NSCloIfwaCYvXdVacXB0fB8bBV lppvdeh4ttjrnwVlh9va38nCGs x3A2wUE2S1VmgrM0ZWQrtCEd EmbetTTUwC2zaghto7koachuRd MdGVFhEBh0JZb2YFPtwLfgPrLe CY13EZD0OJPipbLgF8ZbOUKf eHggLaQ3f0B9Tp9KW7AKTwdoD2 VNTUFSWTwvdGQ+JW38ei72P8Wl CvlrTmr7BKClZAY8xTK0qS3x MODtBSgdq9V3aQD8W5CrloUabm 5od0yzOAUwZSsdA70hyKOkg0R0 CAHwfYS4ZIMemDtnLsKhhD65 Oyc+GTFlzOjom4BdBezxn5ofu6 vouMw3ZwpuWLZwgtFvvBulAXF4 j0NwFy1gLMYyrZE8pXL7aL5f SwHqYeC7OMzuK114XnBpnZMiAl cbG89dV5LzjNG+SRAkFbj0VNWo mGdwTL0mI9OdIJTvojgxgCAe sShqXX5cMHSsohbfSJNlzD2mGH HlO4c4AyXqNdA8AKimM0LzYHSz rdcpKp83uP0nRkAjNnR5QDlr U8EhlvU9FBTitROmAUfmQTV3P5 4dc8R7KUHxUIEoFOA1rAO7sE2d bGlnbjogbGVmdDsgdmVydGlj MOmvAKegY733QIHojLpcOwNfKM luZyBEYXRlOiAgMDYvMDgvMjAy MzwvdGQ+VEYpDTZ7xHruZRVh vGCuLPcnIp8whLqjwUzsPN7lPQ CseltvCXMnlL8kVCNedIXvvQhb QK2yMLMjujqtn400HhJtTOV9 OQZdcVPoA8NmvJ2jMhRjTAItDK QhA7KegKYfAVivQ519JRuaWtQ9 FLRnukRwB3AwKPJjeMmxIsZ5 w5V7Sg0Wq6MjjtqjI2WqnNWvMz MqBjqwYUu3Y8JqEqrgjAL+PC90 IOXsFZ85MUq8MNK3zFgpGGdf WOZoJ6OplZ7iCoUsOIWaOXQsLg c+PHRhYmxlIHdpZHRoPScxMDAl TmNkbHhdMV6yVv1oIUFsVDDi cYpgzXAxKqTjw9xmTYGbMBrnCT 8inWueG6VuiYL3XBSms0o0Oz70 Y63hI1LflTU+XDWcsZI6vWZ1 eK6iDhUeVhI8QQytZ473FuYeaI BcBixim0lsp9gfcUk3YaV7CXMt cpFqzEgnFUU1x2UuYa76F28k IHdpZHRoPSIxNSUiIHZhbGlnbj 5nrY6cAt5+XKRljCB7cZZ4lT4m NrJmKnE0AQcuY804OpEvxUTg Barts5yvt0dbdTb3HwGjNWLpgb HzwQhcSIL2t5GdEk38F7CjbUgu j0IuYjl2kf44tOTsy2Y6xYK9 J1SeFNEmfzgzzSTdqDsmHQ1rZJ RodhlzFYIdxF5oPYRyY9k6BlVp FaX9SKxhV1JzowA0GRKydGLd WCQcqKKYtR6xsnaax1iyvqlmAj EhWZBsZVn9LKo9CFPcvAioNqEn HQZ1BzZ6RMD4cMQhoR9ozKzt ztsjzJ7nDin+JIS6mZZpvARLIW 1lOjwvdGQ+HNZnBUD7gJvcJEic QCBepM3tAPYvK4p9WsLqZqB6 GZihF8AionH7RBRxxQTbEWPbnZ YExK6wfnfyp0oshvywEjLvLKDb PUy9LTt9ZLWfvIqiSoQiHLP7 SnD2QXV4dYNojN6ejQhtcbzthG 9wOyc+YnyojLexBLO1TQh3I7Bi Mse6TZBorNwwWV4orMNpXXsu Uc1jkMrjuVjqBE3uPYIqfhjpz7 76MjSyk2xnUACxiECnSZftUIQ9 J49kn9K8LYXgZGCkOFR3zUK7 pT4upMpjbtttuZEfdDinccFnmK myREbiFAspD369LYVdqQpmWeYp YDp1X3GyRoe4AFFgcMrlOK0a cCGeKLhnHx8juSlfwZauXH8jJX Weqtxsa404AvAva2dgWJQsmQKx IRphDWK4I91tr3V0KSCaVWMw ZLN5bSJ2wO3cnHxoxveclGGxeV kxubVctSubUXzlEEcqN417ZHLo rKliMpIdqTg8J3IwGbg7UFGc cJcmQJ3eiHJcYGpvPb6nqGcpxA xnZB6sAHFqtppli501BpVtt2yc ROCuaSGcYGmfKJA9D99hm3X4 DOXbVSKeQTA2kUS2eW1erFvhhl ogbGVmdDsgdmVydGljYWwtYWxp C322QFIyxYzdQcNolIpzmmSx VOshNWa1V6EbTahtcJT+PC90YW MdZW53xOOulAUbh3pxqQb2TvSn WAYwSSN1yYjmXNpmo6MoNBGh Q31vnHGlf8W3KOXixXnauBGlXn TkqEM0aQ5nUNgfluykd1zpjugk Kxrzs9boam77oB31X21xAIxo ERBvZYOvLSOrVANfqNicfx7xrD 9wIi8+CWKmxJM4zWH6qV7eLDKf MzZ4NUdjM868TwQhhPJlKmhp w2dbz9gomCf5HyZ2VQKvieCviV euQIO5a7JxCd69A90oJMxxCZVk GGDgPKZaAUJehYirpk7psH2f Ii8+PLJqjZA9zAU7hD0fHpKxOe I7LKapJ360BcLehAAmXjhqJ74l M5IhaLD+UWWpFgc8HFAcpQuw KA7keHHqZXqeKf3vTXM0XlXfZf UxZDitX3NmPDYmnhiqrbmqkON4 LZQvJYYhqP56Er2scXqtPBTy pYQBqD0prgmiw4bucqrjTrAmZH DoWTq4BJl6JXJexHaoMqEjDDB4 LmD0HBJ7xHXumL2uzNmcdutz jY8bB8IjXYItbmxqYj64bN0kZl FeAmQ3JPuzMcd+VEhPTUFTLCBD KOOZSNNOTHZ6J6AnEcx8HRQi uEqrKO3kmHQbNHwfHx3hrYxrnU baZW3uBCZssxifEXXwkL0tTHSp wIMwrBxlVM6dBFIyygcch055 OhCpHIR5XGZzxHWyR1ZkzQ4zBs LhIZDzXNKwA9BauCCxVXcuK162 DQfcJsE1HZJgdeMoD2MnCKIv qRehJfB0y4A1Pl7rFv4iHq8nUJ J0PG05SF86qZDxi6L2fLN6I1Hr VZGkevbpzcmmxSG1YEOhLALy fR54yQXwXYrfYq5du3V5e950WX IsGHMgjQ02Dg0wzNfhTCZzlXJU qQ5irzrei0htkecePzLhUULl NGj7EUy3DAJcoIhaEsMvWIN2Wz B4XAR3bMXbdL6haYvedadxtW4g Oyc+FxyvEXUmulF5N1MjXgt0 UHOydUbqUF4qpAHdJQtzCk2rlA npbAuoPF0eIOJdidzoUGQcpV6g HBPdhDOpbPbkRS0oCETqzuml r317RrLhTDV8UTVbeLKsY2OpdN 0vMyYeZSBlPPUlD9DguAIaHNdl D645NFglOkV7HNTcvjHkB5Fk HHGqbQtnKeE8m4T2Si7KYGlAKX 66GN68mCMhd4F8gHR0V9ZpHWSd eyedkzsfvGT5ILEoAQQdsI09 bDWvTBweNc1vh3B9r056BJTcEI JwvS39Gq5uxYfzFYAkaICWxA8j rwvel0usxvziTiRrHTTrGZs3 BOl9PXLmnSbzWhQoFFZ5NcE4SU J2fVYtrH3zyUkpeichuW9yAqk+ O9J4B4XcBeeegSD+UM93CDKu NG18bCHhuHZop0mguNy6OtQqZO AbNIV8gKawGUymv8QkUINrU67i aOIqv3K6KSXdbZnbwURgIqNs dIM3gV9cWDdeojdtw0dkikjpMj hde9ymga60tH05A49bOBvtBFDy KKTmCYAmDKNuoXgfzz0gwB5j Ii8+GBNnuWW8pWI6dZ7gAnSzBn Q2OEpfP110CzKqeKSlHltgn2qw o0hfrTw4JeHrVMJewxKbwPdw PQL5r9OaSt27R67sCRiuODZoFZ EbFGPlRZLhpUriug5lpU9zHy9+ RQ6xi2nwby55bE86oMH+PHRk QJA2xYzgYKskHZFvvT8zQTseNk T7EQWmNgBwzL14yFQzYYklPa3m tYjnlUnlYV5oOBTdiajfk856 KdObb4rtYXRynEAgTBioAAB0N0 4ti4A8HNMdHXQeDTC0xZJ4gE4f bGlnbjogbGVmdDsgdmVydGlj RVxjVCxxN280JQSlcVxgPwNknC ObV2jkzpPRTG6eXqpruGT+PHRk VBB9sCugNBgkXRBqmD0oQIDp J1u1XbDtRwS2YEqlR2HpvnU5FF AzaRXzIJXboGMMwM9csrttq1mg nzqeWsIrKPKgARi7QQv7QMTb qSkzXnFjANG9HyW8SOV1xMDmgB 8gwKftmzfuxF7fMqk+RklOOjwv dGQ+VYBoMJO7vNcbWOxjCWOb tU4pBBNoV1w1HbUaTiW0NVerZ7 PoxdY3YYXanXRyBSFtrHVCcY3l zwldf3etpobmJvVfROWqMKg9 PJk1IFXnhDczGdJxCBK4GiK9GF F5oGNxcH3vrQpruljktZ5bRpv+ TVJOOjwvdGQ+KFUoDJN2sWmv KHghBTWpfN4xEHXdT2u3SmGsYn U5CIevQ1OxchG7VCYxbVFtTTYi wEPHdD7iinsgs1mivjahQjSh TVNqAXt5ORf8ELIdzIltDbPuOS F8QuE5OAS5jADfsO8ewPifuxwz zD8nTjw+TKD1LGS9AO00XC42 Y4DyUxwomETaqSD+PHRhYmxlIH gfKTOqEDnhWLYuCdCiiPrzYQ1m Le7vENLwUMDjtSecwXOvHiGc b2x (more content not included)... [facility] - [facility] - AP Results [id number] [facility] Coding Summaryon 12-12-2022 Coding Summary HTMLBase 64 FtnxyipdENv2sOc+PGhlYWQ+PE 6LVCMzS46kpBHfbC1DZ4hHEI1A ZKXAXKGIAU3IVE9kaLD1IUldT3 VybiAv NtywpTZxPB84XYy5POK5eYvqVF pngD5afNZqN9w2IoUnSZ81hK20 AWypANXmLuH8ReDkmvzcsQOm L2tuClFhuLQoZhe+PHRhYmxlIH hcLKLzFQhuQRTtAwXsvWndJQ1n Sn0qFQSpMNEvnGbtyBUmOfLi s9gsQTMrCIoyUR7fuZvfE9DifU A0AJYfb3q2Pp73tET+PHRkIHN0 lPyfOVimp944TaYfu3qgPEX9 dPUjLLidVRW3J10yg6H2PYMrXT WpQNO9mJL0bY0kvEscxlgcY2Dv nZJhHlV6CMU3fVLbgW6nxMjc hmjcvE0nWvq+O81HKA5CQPOGFN 2HCew6X9UlJhdtwUG+IF50MCXb AD19rNDhgZVng2motZl9GyGb BMEhVPB2yVruDCcpj2OySKIdC0 3kaFThk9I6YRAeoZlhcZAxJiOp cZP7zR1eTDvsytycr4tgjpng Hlavz3nrxm09vJ93P97rQOhsYZ IkOSD9LNWgCBGewRvnld0ifR3n Ii8+HKwpw5uef0ipnWy4JwGt OVMqaaHuzWyyKXN9c3SkPo42Q6 KzwOpqt2YxZss1nn27sQRrp0K2 wOU1EBsxGAWvcW5iELibVxT9 EMSiHzPptP02iPJcCJruTl4hdD qptDryIX4oZUAknrkpTLChcV2d GBUmrZErjXnpOM7aXJXhgcur r214BkDaKZS5DLYugRMvM0HxtE 1rMbBeAERrVBOjS7NkzDIrEOqm Z688QUtiPdN8PTTqynPqZ3Hx XXTikBnjBbY8p3Y2Nx4Oh9Bgzv xsQAJ8RPtoIYA9YkP4GfOhNkJ9 N0JrTqu3GXClcWalCG7cK7Cg CNKuuhkymfykuEJ1IYBdMAYrwN 29uYEdTBjtSd8ep8Y2l497XEKa IWHqdI20Td3yaGxuWDCvoGTZ iZ0kdpaiy5zvddipGwZfJSXwDT l0NQz5AMYqnHakUrYjGCQ0JqF6 ROS9kSEgpT2dpRqfchsyuN3f Oyc+F50faH7cOCK6LKT3sqraJF UcghCjWZ67RT19B4BlYylpbBCz bGU+XKBttaFgaYtwKE7nGkKu g7lrv2VmSBxbN7HnWIRhPLhoTe k5HHZoUBI1mXK7zK6rTZXlQZnh x5G2nGH1F2TswbKmqm5pl5bh TDTjSPstG05cbLHab8G2GZVecV R8JLCbyUgnDoOnxP16Mum+PGNv cUbdu5GhGdfdm7qkh6wqlNj4 SdYxAAMcmcQubPufANT2p5JeCf 04Z18fLKjqFTKbYFFpEUTpXDRl iTgxcz7jiM9bNv6+PGNvbCB3 jRL7kM4eVFGzTzM8UPvoJ572Ya BbbKFfUuczm4att0mczHj9CuPy EUKqciLyuMbvBIB1p6FcMb02 X51pTVwgUUKkHOLfIVXkTBBmsH cthv0asM8lBz2+GS4df1qnql43 qY75uLK+TEIjVUI2fQbcPQia YUWnzG0kLVekNxK9MSKzGtKvyI 20aGWuUKaxQa9fzLyiwXsrSX3s NBBnjlwnb791TxAnx7jyZRKk hTRwPEzlAJN3W00zr0X1IZNcEY QpYDB8yMF2uK9zrSpqgguxeCJi yZbyvpAisElnKHwnSUwbX064 IHRvcDsnPlBhdGllbnQgTmFtZT j5A4JkByp8JLCmxHumGZ9coBNr MIugPj3ekDxusUncMF0oXGJs tqxnd651IfIxj2jaQVTqpREkFV sxVHK8Q80ui5A5GQElAVXyLZF4 oMF9mW5koJopxupljRVdaQrg bqZxgBbeYRsoBZuvK022KLRhbU lkNzQnhjQlGMNnqXH0MX91AO80 xZDck5D8vQD4B9OxGIXvdqmp chaljQA8XSKlGRBmzM19Nl9lyL ddIz9dQUMxRNO1TFQuwNDfT7Qx mG3sGvKkASAdLOQvF4UgeHYw ZUczT735XClrXzH8IJMzhsIyI9 FhGBXseHleSlT7s7E0Fd9FD2L5 HT85YL30uENrg6R9rYN4J4Oa LJLdtprhwgyifFB2ZYKjFWEodY 77Zl3baVwlCj0sJZXgDWI5VNJd kFQjQ4BgsO9kIyIjBYQhQFTy S0WjlLYvLExyB433HLzmIiE7GS ZpwcFqT2IzNBDweOybUnM3b4O6 Fj3JSQl5DJ03SM73bLVdh5F6 fZA3H4LdVBItzvfqbcxkuSB7OV PkDOQagH95Ag9weZgdYp6tROYu BMB3RJVmoHDgG5SaxG7uNdCv AHEwDKXaF3QmpRCvYHbnA237DG fxPmN2NLLdgsXrK2RtVHCecVvk FpO9a6M3Go0QPDWtHB98EDD5 hWZ1WW24WP96Q8YjMvcmiJFlkB U+PHRhYmxlIHdpZHRoPScxMDAl BnRzlIdbQC8aYh4zJMMrRGNh fHknfVRaSsHmb9keXYKeINxaAI 3pcOxdG9PwlJE6YTPso3i4Ke96 S16kQ9NesFO+ZNBvyDW4mJX9 gS4qHrMhSlS5GDqxY350IkVuhU YbAgasj4woo5attVb2YqM8BHHn xmGycAkrPAV2j0HdUz79X62h IHdpZHRoPSIxNSUiIHZhbGlnbj 7ezF9zGu4+IXElyTF8kOW1mC1i HzDfAuV8ZJowG059ShKyeTKi Nyqsx6pcb6ekfYj1YqXsANPmhf LkuMgrBWW1r0KfCc75G2WieFgu s3DfRue5fr06oLIsd6K5yCQ8 T0HpIKLdgmmudAXgqAfuBN5iEU UvykwxCRRjrH3eCISoZ2b2CgVp TtT9EWitX1MfqgM0VKJvlUBy TZhlMAL3G07dg4G7BSPyEJXjQJ W8aQX3yZ6rvQywhecehMGrvSoc hnYavQqbGEmhTUelM699PQKk sQsaPFCjnR3hPZAqgQDqwDvhID 3sQOJpganqThOYP97SCluvU1mP CwqROtZWBU43KX01cTRdx2N4 hCU6T4RaURRouthonukgdJL9TY SoDZLacN66aEVsFDiwYf7dg0B8 y362SLKdJPPqiV46Zl0atXpa BKDxjHNBxR7hingda1tuathdRz SmWJZcTNc4YAg9TCLemEztWfXn RBU2UqG8DAY1cODtxM5lxQws xwnblD2fUnq+EZMxMDTcADh6IG wvdGQ+HXZzLOQ0jPipWDnvXPPs fE7cESDrN0n8VbVcWcG7ZWlu L8VzGNQjvzuaMw87qZ1cHoAdJx J5RLunL8LvbdQ6YOMsqRRsQDxm UAX8U58uy5Z5NCVeDINyUFB2 uSC4aV0nuWcmmtkghBNghAiyiy ZxxLdbQPcrCIrzI833WSRwlQrq Cjf5ZEgoSTPwRT80UH80wYXd d3H7mVN5P4EpGBCdtpvejpadxQ B9NAAjZRDsaC89bGZvCWihDa3e j3H0c132OIFgXFKthK98Mo3d uGkxWGFazMMHbJ1efzwif5elvy luTxBlMJUnZJy7YQr5SZIxtBlt ArJbEUD5QsC8IJK0uSZhmN2s hUmunegvyO4jGru+TUFMRTwvdG Q+ZIYaGOK8eUsrNDckCGXakE1d VZHeN0b9KrXqRrX9BRdbM0Kz ZVSfhopxRe02mP9kMiBsWjY8XA ooL1BwdgM9FBYxiLMzJYvjVAM9 U13mc9W9EFEbXURdFBB8bMY0 zI1xcKfeshrunNXswZlxneDctO aaAVvzKFsiA976ZZXkhPkqOsVl A9DllxvvTsXAiQCkXHVhXP35 SQ77KP05M2QxJezcpWXovVQ+PH RhYmxlIHdpZHRoPScxMDAlJyBz xEzxOJ9nOc7eRMMbNXMviHwr qLLeQsFkg4tdSEKqKUazMY6kvC meM4WcoFZ0WFGhs0x4Xy20R44w L7DreKG+QXYaxYR4pCL1aQ0n RoQnZoI6GNkfV312VlNmiNZbPg hfz6lbb3xvuIm8LfIaSSWrdpEy vExlNUM2b4GiAa74X17lZWhp PLNsEWKcFLJhVDHbrTtxya5moL 9wIi8+REFekJS6yRK8oS8jLrZw LjM6EJjrN410WbFukXGrRkhn U20sI9TjxYX+TAIlBpr1IQZalC yyPY9qjECcCEcvAg7nOPF3PsAu WqXeBYouS6QbVESpvbybsrwc oDZ8SCNhIYKltA55Sn8qaEriOz 3tPVPkRKQ2OBEttQJtD9TblM9i ZkHyXWQsLUQvP1NrmLRmZMea G279GCpaKdM2TTRxcxAkN9JtUV UkmRezGnF5d4Y5Hy3SrAfplSHh GH8zVtTsJLk2G7WtMom7SURh cVkeEU8ywYRbGCcuZb6faMkszD crDS2fVULbztcuu701EnZge5vo XZCgyBXoOBvlTOP1S13om6M5 JJCdUZKoYKU9rNF3vC1rxIlgfp ogbGVmdDsgdmVydGljYWwtYWxp M194TDYykQmxMwIAZns6J0Og Lka6EGGsvPvrXC6zvOAaENpqNr 8swYgvgCrlYH1qLVGbgwvzw572 MnSbu0yxJZHyvDBsVAlqMKU5 G48vk1S7LSAuOUWuETT1nGD6sB 1hbGlnbjogbGVmdDsgdmVydGlj FLtrHNqnL234YHWaeLwlFb0L Yzw2P2JmHal5IHHrtRcjNH5wpJ HkSJnhJk4hyZjlrHktQF8vSDWl muxlb820AkYag1cbNKKokABd RRkvPXS4Y71az5B1MWBrHZSaBR O6vIC1fN1esMouargmrBDzmZcj qeHkxLqvVHwnZSriI345ZCBx cDsnPlBheWVyOjwvdGQ+PC90cj 41R3CqEivxEme3HWYhOWP2pSO3 wN0kFQKbQHukq3I2aAN5E1Jt cmR (more content not included)... [facility] Coding Summaryon 12-09-2022 Coding Summary HTMLBase 64 FaukhiicGZt2fQw+PGhlYWQ+PE 5UIHMnV77csHAesH0GS5sIES6T ZSBOPSCHIO9OUX9haBE1WHwqQ9 VybiAv VdugpYLdIS39QKc0RMO9iLqgKO ccbD6sdKAsV6c9YtImKZ89zZ96 DJouCPFyLkI9TsZvmmdwpBJk H3ctBmUejOFzCyy+PHRhYmxlIH qbKQRxTAhsUTIkUtQyyKcbVF1v Gt6mECAnAVAiuNhovYPpDmCc n2rgQSFgFPmrLQ0puLwcI2YmjL Q0IUTpz2p3Jc46tDT+PHRkIHN0 rWwsBDsfb360PvDtf5wtLOJ2 cBToZYegKUC5O80gr1Q2VPLqNX WuRGT2eAT9fW7bpJxglpbgA6Hg tVFmWsS5HVB8kYDlsX1uwWnq hctecT2mPsz+X43UAH3PGBNRNL 9QMcm1F3CdQypfpQB+OI26RPAf OW91dTEqkGMcg4oxzOa9YgKd IUArLWI8aZhyDEsjl7KhIOTnF0 1uiHPvy1M3NMIxzJheuTYaUqCc zFK7kQ1cDUpdqkger8ilticn Vuaok1fsmx69rF78S54jZCefMA HnZDE7VNBuEAQaiMidsv3iyF4h Ii8+CCqae4ped5tmfFc4ZwXt JTIrrnVnyUpuYPN0q2CjRo44E8 DhiFadn8BvFim2mw87xQSsf7M2 sWE6GVskMJUdjU8lVOrcPfL7 CLIoEjOdxZ06fNWfKGkeHy7ufR ntmDeoIL6lOXDpeyysUNVwtJ2w MXTyhXHrjOjbYL9vLORmznbc s483WzSmSMZ9NVBqgRYaQ0HlmB 7kNsZxGVWlPMYbU4VgjLSaJWcz Y615ZZkkEeC9JWGedyMqR4Ew RSZkmPsqHmA6z6K2Do0Tk6Xopf clSWT3ECtkKVC5PkNiXxOgEqL4 W4OaWdo0QFWkeEtcXH8jH8Cw VOGquuvjjqepxKH1MJVeXAEbtI 13wVVkRPrsFg2be1S6l725KXPw TUTufF68Vq5jvFznFEAuvCHM eU3iwcizi6iepuxpKcVpLCYxHT h0XQt0AHPexXvwVyUzNFY7EgZ0 TDY8uBBwqM3dmAlmalotqG4z Oyc+X74qjR3pBVS3CPE8ylxpKW ItlsGiXA43CB70L0XeHdvuqHTu bGU+NDSascDjmEyoNR9nQePq t7ejx1JdQPgkS2CkLZVaYFmrXp n8QGIcPXH4qXN1kH8yXQNsWZyn d8W8zBO9A9FzmrXruj7fw3vd JPCnVXmaH42ybQFiq0G2QJAhoZ S2VYSoyFsqAqUqlT55Gud+PGNv pCnob5LqHzefq1wlu3mnaEa8 QhUrCSDydtArvGkzWRO0u3OkMj 01M15pKUvfPVSpXZRqOPPxPLHo rYbhnr2gdP8eSx2+PGNvbCB3 rWO5iF6zRHFuXfK6UXvuS382Jx IaeUCdRwhix9wyl7tymBr9IcMt AAUbqrXbxNhpRNT1x1YeEf36 G95cTQukEZJqNCRuUFJgCCKncJ nfah5nmM8ySj0+RA1oj6uhkd69 aY90wHK+NTRyQMO9oQgqMDgq ZGJrhW0bCNkbEjX8HVUjEcZufM 49vWGjGCkpYu1hlVktdRewBP5p XEAhryobv044RjVaq5tpYPZc sENoLVaiZUN7Q26yf8M3UDFkQG CnQHI2fCP7kB6blWcmxepzjPEf uWjayoXlvQcoUQkcIDjqZ192 IHRvcDsnPlBhdGllbnQgTmFtZT v4G8FpBsn9OBZccWwoBW7zvTXu AZgrMb0zpEnchDgxXM7xVGPa vbzby884ZyTtz0ovORFsdGTkHP zoWGJ4O65lj8H4SQCvZAKxUFT6 vVR2hF0yiUbhwuyddSEdhGen swRwwRzrAFueWXdjQ257ZNRfnE feWnMzbhTsCUFwsMQ0QQ74QA10 uXUfh1Z3xBY1N2GyZVGhgbna avfdqYH6SOTgAYCcuN23Zi5xnU ngBu8sCWRsGXX8CRAmmPBwV5Gx qY4gSaSzGLKtPJFfG9KbqGHz MFbuU918QDdjRzA5CZRmnqBrT9 GhLMZgaCcmHoT0l2O3Ek5JC2L2 IR79IC56kSMad1M9dQH3J0Ky QHTpgpiwgpepnMU6HROpYZRupD 22Vl3egQraKm9qHNYeMGN6TYZi iASqC9OmcU9fTxHwWJIhISJi J4LhfOEaEDuiI338UDmwFfR6QK FvofTvO1CkXGNjaTefJkA1p3Q0 Sl0ZUHc7UV96CZ42rDHsl8J6 bWG9T8LqJUMhgicgtpbqcQQ6WS BxNLXuxQ49My5cdUsgPr2lMHQt ZMU4WWTnoOHdG2JymX9dOeOv GTMiSRXcB0TroCVsZVerR355RY odCaY8BUHdjrIsR3UfTNPhgPzq BdD0i3H2Rc1PYVGrUB16NMG4 iVE6PX20CI01X7RjXcvmaIRofE U+PHRhYmxlIHdpZHRoPScxMDAl FeIkzSczDI6bMi6pFXDaNDGf gNpqsHBoObQpo6vcTQGxVCsdBU 9lpUaaU9LfgUJ2UIKdx0h5Bc01 K07fV4RhrYK+SCHwwHG1gMK7 jJ9oHaAnXzU2ZXibG617BiSekU ScSvmnz0qrh5bgcTc1YqC9AMNa fbLozWcnBZY1d5TaHb06J75g IHdpZHRoPSIxNSUiIHZhbGlnbj 0zsI7sCr6+IPRtoHA7tRO8hF3w KtSjCpV9FSqtQ737WdCtzMZj Czzcu0sqm1wdeMx2UfPzNJLbqe RokEglSCC6l2PzVq40S0MsoKks p0QvIhb7at28yIHjf8G5uNI9 T3UqCJMtwmojuLRawZekFR8yIE BfwvuyKZNlpW9lKADtF5j9UsRc XaM7OKvlE2TcgwM9WOTclSHh CMdjLHO5N64ca7I1VOEhJFNhEF B5lDB4mZ3wiUdblvitwXGhnZsr ndRqpGjxYQtdWXkuK322XJEk zZvaXPNduT0uAXOqyGTjbLesXI 3bTSOueeudXnHPA01HPvdwQ3lJ DmrJBuVXKT50RC01tKMzm8Q2 qMW7D7VqQERzmkmbhabseXF8HA AmCGLlvC69bHHgCJqmGf2jd0W5 n806UGNtVITfiI09Tp5ikWne ZSXfmJARsX6qgoviv2zbfdlzSi KdWJLkVWo9VEy7YCAqlRrsBzYi VQL7EiX2WKK4xZElvB2xoPdy ybxvjA9fAdn+GBHrOZTwYDb2XQ wvdGQ+QPXlWFU5sOgwSJzlYNWm kC1qWUJmJ9g0SwWaImB9RUyd P1QcXUOdjcgxPr39eI7dAzLpBs X9ISuvK3VdzmM9ZLBirHWhYXsu VFM0D08sf9J0PGJyVTVyVVG3 jOC8aH4wmNeyrcizxCQooHwxui CjyLfmQUbpNQvbU745STFaqIoc Qwx3EOdePRSuIF90VV05bSBk k9X5sJK9J8IeJBSqlftadwuxwB O9ZWZlETIoaJ45uSWiREvwZe4n f5H1u295NUKkWWYjyO73Pa2o gEtwQMGcoQEYwD0pcwuzq9dmfq tjIpBnUNIbMZn8NKx8GJKgvIeg DyKlLJF4YjQ3ZHB2zPMtfO0n rAddqjhlmB4nMzu+TUFMRTwvdG Q+QXUnXXG7rZpuYShhHLLyhR8n AAOfF4i2XkRvWmL7PQtqY7Vv DARosjwaWx61qY5wPwAxPtA6YD twD1ZvhwN8STZgiODzGSgjGIM6 W58wb3P5PBSdOVYgFZW0fQC9 uD6kdLcfbjczaWKdcYlqdxTdwT xsFUshERsyM517JCUygOprUp4P AO02HZ76Q2PkBflmrIRvdIX+ PHRhYmxlIHdpZHRoPScxMDAlJy GskMseWH3wEv4pWRWuHUZfvCvf uTKkAwAyo0neUWYuPDjgMD7h cUnhO5QczRW6OJLpf7i9Yv24M3 8dD6OvtIW+NNHtgQA4vXU9fK6g ZxGpXaS0LUulJ695DpGgnYDy Dhiyk2xxc3pdfEp5JoNxSJYflq MjvUawUHA5p9IbJi54S73cXDru HVFnXSOwNDVgWAKlaUfvtj8g wY6tRy6+ADDbkVV0pAF1zB8bUn TaWhE8LKskT730NwEioQZuFpdi U51lO1GxyNH+OQTqOmq1INWs gCulSH2chNKhHZojZq1xFNZ0Os TjWnKrLLcpV2ZsDHAebaemrwum hNJ6QVImBGWivY66Uh3jcKhp Tf4sZEYlICK7BJWkjDJcE8QtmT 0aVtAbKCWcKPCfL9VbtZSeYLqu L429APjnCnX8PPNkyfVjK7Lt VNKivXsvHzN9f8B8Qr0KdTgttV RzBR8eElBiJCo7G9XsCnc4WEVj yHxpZQ2ejBErACnxEn4moCrh dWxgAG2rMKIifjedh214GlHty4 hzDMFdySLlIZcgEAF1K31gz6Z4 XUBoQAYdBGY5sYL4wP1rhNrs bjogbGVmdDsgdmVydGljYWwtYW suC091FEYfcJmwTeUUKoq5H2Wp Fms2HRWgmVmmPK3meOTqQEam Gl0lnBqulJqdZR1sDSFnvdrfo1 08MsLug4buOXQucTBiYSraNAR0 R53nc9G5PIKzMIDhTSW0cMX2 mY0pdOafamjpwQHnzSfksbZdyG dcNLzuSVvlX267DEJzaAdcEn9P Psb1D9AnVkk5IWMpbKofWB1q wXJwPYehBe8srWbiqYohFT1oSM Cruqtzu521ZoRvp5lkLLVbwZTe PWhsRLB8E94eg9H3CSJvEBUz WNF8mSF9hJ9eiNvwwyyquNQzeQ pudxGirQzdCVigJUzhH304HYCl cDsnPlBheWVyOjwvdGQ+PC90 mp83R7MzBpgvMyu1BLEyVRB4mR B4yT2hHJAbJHurm8F6cUX2R6Xv oxRmve7mg0ppGVWmJNlqN94t bGF (more content not included)... [facility] Provider Orderson 12-09-2022 Provider Orders [id number] [facility] Oncology Noteon 12-01-2022 Oncology Note RN placed coude cath eter via sterile technique. Pt tammy well pt stated little painful. No urine noted coming back into harrell bag. RN ask for assistance. , donor processor catheter further on assessment bright rich blood noted coming back into harrell tubing and meeting resistance. Harrell pulled. This RN called Dr. Cardenas office spoke to Marcy his Nurse. Dr. Barnhart would like gemzar held today. Pt stated that they have an appt with nabor next week. RN educated pt and if having difficulty urinating/ large amount of blood/ blood clots to go to the ED and call shamar office. pt and both stated understanding at this time. [Electronically Signed on: 12/01/2022 10:58 EDT] Joseline Dye RN [Verified on: 12/01/2022 10:58 EDT] Joseline Dye RN RN spoke to Nurse Marcy at Dr. Cardenas office. Stated that Dr. Barnhart would like pt to keep appt to see him 12/08/22. Pt called and updated at this time told to call clinic with any questions [Electronically Signed on: 12/06/2022 09:17 EDT] Joseline Dye RN [facility] UA w Culture if Ind Standard on 11-30-2022 Breakpoint UA [facility] Comment on above: Performed By: #### 1 [id number] ####[facility] (DEFAULT)[address] [place] [address] Color (U) Yellow [facility] Comment on above: Performed By: #### 1 [id number] ####[facility] (DEFAULT)[address] [place] [address] Culture? No Normal [facility] Comment on above: Result Comment: Resu lt created by rule GL_MAGR_ADD_UA_CULT1 Performed By: #### 1 [id number] ####[facility] (DEFAULT)[address] [place] [address] Glucose (U) [Mass/Vol] Negative Normal [facility] Comment on above: Performed By: #### 1 [id number] ####[facility] (DEFAULT)[address] [place] [address] Ketones Ql (U) Negative [facility] Comment on above: Performed By: #### 1 [id number] ####[facility] (DEFAULT)[address] [place] [address] Micro? Not Indicated Invalid Interpretation Code [facility] Comment on above: Result Comment: Resu lt created by rule GL_MAGR_ADD_UA_MICRO Performed By: #### 1 [id number] ####[facility] (DEFAULT)[address] [place] [address] 63648 UA Bilirubin Negative Normal [facility] Comment on above: Performed By: #### 1 [id number] ####[facility] (DEFAULT)[address] [place] [address] UA Blood Negative Normal NEGATIVE [facility] Comment on above: Performed By: #### 1 [id number] ####[facility] (DEFAULT)[address] [place] [address]268 UA Clarity CLEAR Normal CLEAR [facility] Comment on above: Performed By: #### 1 [id number] ####[facility] (DEFAULT)[address] [place] [address] UA Leuk Est Negative Normal NEGATIVE [facility] Comment on above: Performed By: #### 1 [id number] ####[facility] (DEFAULT)[address] [place] [address]408 UA Nitrite Negative Normal NEGATIVE [facility] Comment on above: Performed By: #### 1 [id number] ####[facility] (DEFAULT)[address] [place] [address] 90804 UA pH 6.5 Normal 5-8 [facility] Comment on above: Performed By: #### 1 [id number] ####[facility] (DEFAULT)[address] [place] [address] 07574 UA Protein Negative Normal NEGATIVE [facility] Comment on above: Performed By: #### 1 [id number] ####[facility] (DEFAULT)[address] [place] [address] 98719 UA Spec Grav 1.010 Normal 1.001-1.[address] [place] [address] Comment on above: Performed By: #### 1 [id number] ####[facility] (DEFAULT)[address] [place] [address] 63591 UA Urobilinogen 0.2 mg/dL Normal 0.2-1.0 [facility] Comment on above: Performed By: #### 1 [id number] ####[facility] (DEFAULT)[address] [place] [address] Urine Source Clean Catch Normal [facility] Comment on above: Performed By: #### 1 [id number] ####[facility] (DEFAULT)[address] [place] [address] UA w Culture if Ind Standard on 11-23-2022 Breakpoint UA Normal [facility] Comment on above: Performed By: #### 1 [id number] #### [facility] (DEFAULT) [address] [place] [address] Color (U) Yellow Normal [facility] Comment on above: Performed By: #### 1 [id number] #### [facility] (DEFAULT) [address] [place] [address] Culture? Not Indicated Invalid Interpretation Code [facility] Comment on above: Result Comment: Resu lt created by rule GL_MAGR_ADD_UA_CULT1 Performed By: #### 1 [id number] #### [facility] (DEFAULT) [address] [place] [address] Glucose (U) [Mass/Vol] Negative Normal [facility] Comment on above: Performed By: #### 1 [id number] #### [facility] (DEFAULT) [address] [place] [address]1263 Ketones Ql (U) Negative Normal [facility] Comment on above: Performed By: #### 1 [id number] #### [facility] (DEFAULT) [address] [place] [address] 67792 Micro? Not Indicated Invalid Interpretation Code [facility] Comment on above: Result Comment: Resu lt created by rule GL_MAGR_ADD_UA_MICRO Performed By: #### 1 [id number] #### [facility] (DEFAULT) [address] [place] [address] UA Bilirubin Negative Normal [facility] Comment on above: Performed By: #### 1 [id number] #### [facility] (DEFAULT) [address] [place] [address]70 UA Blood Negative Normal NEGATIVE [facility] Comment on above: Performed By: #### 1 [id number] #### [facility] (DEFAULT) [address] [place] [address] UA Clarity CLEAR Normal CLEAR [facility] Comment on above: Performed By: #### 1 [id number] #### [facility] (DEFAULT) [address] [place] [address] UA Leuk Est Negative Normal NEGATIVE [facility] Comment on above: Performed By: #### 1 [id number] #### [facility] (DEFAULT) [address] [place] [address] UA Nitrite Negative Normal NEGATIVE [facility] Comment on above: Performed By: #### 1 [id number] #### [facility] (DEFAULT) [address] [place] [address] 00948 UA pH 7.0 Normal 5-8 [facility] Comment on above: Performed By: #### 1 [id number] #### [facility] (DEFAULT) [address] [place] [address] 90741 UA Protein Negative Normal NEGATIVE [facility] Comment on above: Performed By: #### 1 [id number] #### [facility] (DEFAULT) [address] [place] [address]71 UA Spec Grav 1.015 Normal 1.001-1.03 5 [facility] Comment on above: Performed By: #### 1 [id number] #### [facility] (DEFAULT) [address] [place] [address]209 UA Urobilinogen 0.2 mg/dL Normal 0.2-1.0 [facility] Comment on above: Performed By: #### 1 [id number] #### [facility] (DEFAULT) [address] [place] [address]05 Urine Source Clean Catch Normal [facility] Comment on above: Performed By: #### 1 [id number] #### [facility] (DEFAULT) [address] [place] [address] Coding Summaryon 11-22-2022 Coding Summary HTMLBase 64 WgxcbtkqDAv7dBq+PGhlYWQ+PE 2PVGLsJ60gwSWpcZ7BH9bHWC3L ZRPGAIOFOI6SJE1pkRN0GGrqD5 VybiAv TieibJYpON07GUk5GRK3sDecAZ zlmC3gbCShJ0d8MjReNQ52tT71 HGfrPSGnTsH5NtZrpsxibLDg E4inGvLlbIChVsl+PHRhYmxlIH yrLYPrLRscZRFcGkMarQqiBQ0u Bx8rZURlLBMkjOjgdEAvDbSz u5xvJXMyPJreYL0ueQlcF4DjeJ X2YYHxr8u1Sm09qWK+PHRkIHN0 fUsjHRtnm268NmNlk3xvRHZ1 xYYzQAmeFGS6W67qm8F0MEQiAB IoXOD2kNZ9pY6msEwaygwoI3Bo dYAfBiH0XSK5tFZfwT4wwEfv xnrrmV7xGbh+U51IXK0OBKAQBZ 6QLif1Q5QkBzclfNC+GF04AYUw UY55hPClnFSgm1fzeJo7MwXq GLIaSUG8yQhbXLpst8WvCKEcY5 7iyUPiz4C8WNRsdRmaqMBwNiFi rFQ2xG7fDPhufqhgb8hqrdaz Fkmqj3tgsc96bU14Y29wQGtbCM LcGLS0DPJoTTGdrDnhub3xkD4j Ii8+NOibe9dll3zruGx7UdIo LXBlbwUmuXunKWG8q6OwDd57A4 YttEvpr9XcIvk8hl22eCPwk9I3 bWH6LTptBBYskY2tFWpsZeD8 HNAhZcLcgO35jFHaAUjxKd3shA ttyHjoMD8tNFEcznuiNXEmcO2v RKUznZTxhLrhXI3gUGIjcoix b874DcJeGAF3SCXxzSDqB2JwuS 3oBeDbMDGwDKMuZ1GoeJHtSJvo R877GXehDbP7GPLoudIbK5Ob UHSujPfjUvY8n3A9Bk3Py6Lhch uzNFE1EIdnWAT6YoH1WsLbViI0 Z4RkRoz5IYXiuLfkCC3cE7Qs RTDuksrdbeqxrBG8AVPqZWLbpZ 20kDXrMInpDj5hz2O2u347YWDx EPNicH44Ne4ljAuaFJPnwZRI vU5xaayof6pkyblsCqOfJZIbDQ g0RPf3WHWkdObeImEzBQN9IjK1 TWD3jJStzJ9nqYvagitbdP9q Oyc+E03gfT0eMRK6LLQ6qulvXL JltrJfGW41TR52I9PcIgldsBVl bGU+VXAnezGbrAsmCG1pXcHu y3vtm9NcWSkkF7AoNFDbOTrzCl q4ICSuPEE1kVJ2fS6nQIKkAShk s4K4lOY4N8ApagJtmq8tz0ot KLQxJVnmP33xjUIgd7U2MUXzpG A7UEDwrXihYpTnxI46Kmk+PGNv hJcnm2PtCsibf4euv2iitXd2 NcTwHBTrpsKtySlvQIW4a1ZcHa 41C24dFXmcZCIxBOKkXWKaCGAn jCyryj5uyD0dRq0+PGNvbCB3 wTF6gH4tMLNlEoI1QCfbX027Pj WodWAtCunsz0lvk1woaNl6XwTy LUVzxvSvsRgiESO9i9NuNl52 G91fAVogAOEqZMQmNLJuHPZhzW fiif1rjS2bAh1+JQ8el9piel47 iL09bQM+EOEdSJR2tOzqPVwn QEZfgG9gUEheYvX4ZYVfVoVrhK 53bCZeLXqxWe2joAbnrPsiDU9y BNWjnjlfw595YyMmn8upWPXy yHOfVTbeKIK4C40za5K3NMYeWC VcXFO3hHE9xK3kuXzvlbwjzUKd sEujseWwyXxuDWseMQtbG646 IHRvcDsnPlBhdGllbnQgTmFtZT j2B9EcLes2LLBruFxtOC3pcNJo JFvyRj1bbOgkbNeuWG7jTPQd lzqlz932ZxDef0fsFVWmyQXhQG noBGJ9K26hr9X0DGStFFYyHDD7 iHY1aY8eqCpdxlxznZAnxOxo grAvvUmyVQoxPRteT242ZMHbuZ fqYeVehlEkBZMqdTN6IV93YI78 wALqv8Y2jCK5K9SdEGOfzmmx wgwjfNW8EFKyPPQpvX16Nl1xcV haBy5bIKSzLNV7RDUctLAgZ8Ge fT7bTvQbUNPfNXHvZ4YuiKYn OGodN998HGezXuZ6OBEtqjBuN4 LdCWWfbUigMgO5t9G6Be0TM9M9 BW17HQ12rVBcg9R7qEH5K6Sw XYUurxajraadcTN6LFQlBVOavP 77Ja0wnOqcMq8cYEWgTKU6XNRi oJCzI7SloZ1cVlZrPCFwVRRc F8VxuPReCOnmQ430VEogZqX9EF VktwBuO8VqMAFtfXbmSiH5s5D3 Ua1VFTv7VX98YA26bTYlb0A6 nNP2T9WsAILitwdaxlplcNG4XB NxOEFqkC65Ax5ykUlbNj7rXTUh XNY8YVJsaNPsX6VkuL3wWgZx GXRtENKxM1YivQHnVYbsW040WC ueXpF2YGRbhgGlX2IdWSXteDtw DrF0q9T2Ov8PNTEbBU22UJJ7 hNY7YA80RR92Y1RcUxiqkRNrnD U+PHRhYmxlIHdpZHRoPScxMDAl FyAurBpsYI3yMh3gIARvBDNi xXzwcBToCnKak4csWBGuBTitUE 0akWnxF9HwhBS4CHRun3v2Bx50 R42rN8RzkMI+LDIgzHA6hIB3 tH0bYjQuVqI4NPizD486CrRpxI HyDmncb2bvq9wejTz0CcR8HJXo ycDesLulLJQ4e1WsOb46P67c IHdpZHRoPSIxNSUiIHZhbGlnbj 8lyR3oMd3+THPayRD0uZH7qP9x TaIcRfW0PWcfH273NyPtnIQw Nnsio6ehm4yrfYq8IzRdGXLpje PelNhbVPF6i2JiFr50E6AhuQea j3XxKsu6qj94pRRrz8W5aVY3 F4BuMERgxwvbjKQicQlkFF7sBK LcklflXNFkoX0sZJRbE0m1QbXk VnM0DHfqD7IovpP1ZTAmtZGn TPfqMGC6Z73ej0X4JIQgAPVaYI T6hWK9mZ8cgEypswlyoRRmuQks uwGgzWhsQWzpAVgjU691XFWm qMaqNDUozH5pZBZgkZZapDgsMK 8cDBGguraoSzYMO73KWqmwB1aZ KnaNVeYDSX92AP15pNSsi0H2 zLW0B0JeAOTawxygcadmhTY9LL QxUHDuaR60uQOkKGjhXs7iw3Q4 f676WSOfXLHhkB17Zu2wlEkj EQTstNUNwM1wevlbo1pmtkucBx FiNRJaRXh1HZk2CSOaxVqfTmYu PTV9ZsS2FBP1tJRxyU7uuVbm gwyvvY6zQfw+INLoVLDyQXp8NF wvdGQ+ZQRoPWL1rXiqUNhrQXPk kQ6nVRItG8d4ScKzSzL5ULyv I3IqVPDidqupMf66qE9yYgWsCw D3QBmrN3TerzJ7DPBeyEJyNMmd ORS8Y34qa9G4CLEbPVEvKCY9 aIH1yU5tlQvasskbfNQevEdzdz CnuEbhLAdqHPcaS440CZZwnJvj Nob1SXniUOJxRR00GQ87rRGe a1M4tAU0B2BqZXFqxaeehgkkuN H8NHXxDKAeuI18uAXhXMuwAh2q d4U4f593HIEiYAVmkU54Ly4r tYboGJOhvTMMfB4cxjevp3hdnl xjHuJbXJRuYMc9EJf0QUFvtHil WqTiKXP4QyL0VDP5pSVkeA2h wOxqudjbjP5sVor+TUFMRTwvdG Q+HWPbWEW6uXfaSYgaLNWfqI8f EZKgS0u2WaQaYhB5VNpnN1Cv GJZibawjPh57wB5rDrYtKrQ1BO icN4LxbyJ5NBVzxWVhQWswIFR6 C58jk0M6EVPrPALyLVV9xRK4 xW0djThbebfzhGYodEnbjwXoxM vrWYhvIHgdH772TCLdmMkzBxNn Y0MxuqehFkSTeCZjLRKnYT98 NZ17UD93S5HaYfnjoZDhgAY+PH RhYmxlIHdpZHRoPScxMDAlJyBz eHmnXS1lEr7qNTZoTTKmgCai vJKlSeNok4eoPOMeZSxzZG5aaX xiK2NwlRU9KNGqc5n2Pe43L46g P4YmnCK+BIMkxYG6uGJ9vZ4u AoPuWzE1DMflZ244KzWxdJLtZe fxo9cso4xhmLo1QyPlYTSfucPg yCqxEBE3m7AfSj77D60dPLdo KUUoQVBrTNUfKQFuhLkhrl4wcO 9wIi8+WGAjyLF6bAA7tP0rPqVn DoA1XHaoP887XxTqkNPaTjqr A91gZ3SftXS+FDNrVwa4AUGukO bkLA5dxTWnZPyfFz3eOZP9JcTn DrBwHSflP8DgGGMvtxqqtued oYE8GPVwHRFsyV01Kz6ayUyrFy 9nLCEfVUO6FWKehXRtU6ZnyZ2j FaRcHLXnYPZtE2IkaRJsDBjy S919HSejVgA6HRJkfvNjW2PiDH RqyEcdLsU6j0N1Ka6TuGzfzOQs MI1mGoIoUKp8A1MaEgm0HXYh mVxkUO3bkVYzFWkiRb4mxRbydO thXZ3zHVZzrrpsb448SaVcw7hz NCEzqBUuVQfkPXG0R08ac9E4 ILLsAJEjFVP3cFD8cO0ykJhnto ogbGVmdDsgdmVydGljYWwtYWxp B906QHXypJuzDjLSDwt8V3Rh Dpy8ORPswLwbBD3mxPJzOSyuYz 8xdUzpmVbgRC0bYTElmrjec498 QmNea1geUXBlbDAkNSciKTP2 T23fu2O7XREcAGDeDPP2pXC2xZ 1hbGlnbjogbGVmdDsgdmVydGlj KRyyEKtnR347LRCzjTxaXa0Y Evv1K3OrZny6FTAmlIjhGZ8xeK SgXEoiKo5fvRfkiDulEJ1wYUTf mfwuf489VtEdd1kyELNffXVl UKnaXKK7I62ol5W1KUArHYSyYD O5hLZ2sQ5fzHzgdgtrcCQjtMfn rzOupFmfILenOCvjG748XDDo cDsnPlBheWVyOjwvdGQ+PC90cj 27C7HmSthsOqz5ASQgOSP7sER4 rF6rJEOhVWmtv7Q7cKO2I2Gp cmR (more content not included)... Normal [facility] UA w Culture if Ind Standard on 11-16-2022 Breakpoint UA [facility] Comment on above: Performed By: #### 1 [id number] ####[facility] (DEFAULT)[address] [place] [address] Color (U) Yellow Normal [facility] Comment on above: Performed By: #### 1 [id number] ####[facility] (DEFAULT)[address] [place] [address] Culture? Not Indicated Invalid Interpretation Code [facility] Comment on above: Result Comment: Resu lt created by rule GL_MAGR_ADD_UA_CULT1 Performed By: #### 1 [id number] ####[facility] (DEFAULT)[address] [place] [address] Glucose (U) [Mass/Vol] Negative [facility] Comment on above: Performed By: #### 1 [id number] ####[facility] (DEFAULT)[address] [place] [address]452 Ketones Ql (U) Negative [facility] Comment on above: Performed By: #### 1 [id number] ####[facility] (DEFAULT)[address] [place] [address]147 Micro? Not Indicated Invalid Interpretation Code [facility] Comment on above: Result Comment: Resu lt created by rule GL_MAGR_ADD_UA_MICRO Performed By: #### 1 [id number] ####[facility] (DEFAULT)[address] [place] [address]290 UA Bilirubin Negative Normal [facility] Comment on above: Performed By: #### 1 [id number] ####[facility] (DEFAULT)[address] [place] [address] 73585 UA Blood Negative Normal NEGATIVE [facility] Comment on above: Performed By: #### 1 [id number] ####[facility] (DEFAULT)[address] [place] [address] UA Clarity CLEAR Normal CLEAR [facility] Comment on above: Performed By: #### 1 [id number] ####[facility] (DEFAULT)[address] [place] [address]77 UA Leuk Est Negative Normal NEGATIVE [facility] Comment on above: Performed By: #### 1 [id number] ####[facility] (DEFAULT)[address] [place] [address] UA Nitrite Negative Normal NEGATIVE [facility] Comment on above: Performed By: #### 1 [id number] ####[facility] (DEFAULT)[address] [place] [address] 23618 UA pH 6.5 Normal 5-8 [facility] Comment on above: Performed By: #### 1 [id number] ####[facility] (DEFAULT)[address] [place] [address] 64904 UA Protein Negative Normal NEGATIVE [facility] Comment on above: Performed By: #### 1 [id number] ####[facility] (DEFAULT)[address] [place] [address]2585 UA Spec Grav <=1.005 Normal 1.001-1.[address] [place] [address] Comment on above: Performed By: #### 1 [id number] ####[facility] (DEFAULT)[address] [place] [address]2239 UA Urobilinogen 0.2 mg/dL Normal 0.2-1.0 [facility] Comment on above: Performed By: #### 1 [id number] ####[facility] (DEFAULT)[address] [place] [address] Urine Source Clean Catch [facility] Comment on above: Performed By: #### 1 [id number] ####[facility] (DEFAULT)[address] [place] [address] Consent Formson 11-11-2022 Consent Forms [id number] [facility] UA w Culture if Ind Standard on 11-09-2022 Breakpoint UA [facility] Comment on above: Performed By: #### 1 [id number] #### [facility] (DEFAULT) [address] [place] [address] Color (U) Yellow [facility] Comment on above: Performed By: #### 1 [id number] #### [facility] (DEFAULT) [address] [place] [address] Culture? Not Indicated Invalid Interpretation Code [facility] Comment on above: Result Comment: Resu lt created by rule GL_[email or web address]_UA_CULT1 Performed By: #### 1 [id number] #### [facility] (DEFAULT) [address] [place] [address] Glucose (U) [Mass/Vol] Negative [facility] Comment on above: Performed By: #### 1 [id number] #### [facility] (DEFAULT) [address] [place] [address] Ketones Ql (U) Negative [facility] Comment on above: Performed By: #### 1 [id number] #### [facility] (DEFAULT) [address] [place] [address] Micro? Not Indicated Invalid Interpretation Code [facility] Comment on above: Result Comment: Resu lt created by rule GL_MAGR_ADD_UA_MICRO Performed By: #### 1 [id number] #### [facility] (DEFAULT) [address] [place] [address] 29902 UA Bilirubin Negative Normal [facility] Comment on above: Performed By: #### 1 [id number] #### [facility] (DEFAULT) [address] [place] [address] 28374 UA Blood Negative Normal NEGATIVE [facility] Comment on above: Performed By: #### 1 [id number] #### [facility] (DEFAULT) [address] [place] [address] 86870 UA Clarity CLEAR Normal CLEAR [facility] Comment on above: Performed By: #### 1 [id number] #### [facility] (DEFAULT) [address] [place] [address] 86542 UA Leuk Est Negative Normal NEGATIVE [facility] Comment on above: Performed By: #### 1 [id number] #### [facility] (DEFAULT) [address] [place] [address] 50198 UA Nitrite Negative Normal NEGATIVE [facility] Comment on above: Performed By: #### 1 [id number] #### [facility] (DEFAULT) [address] [place] [address] 53042 UA pH 6.5 Normal 5-8 [facility] Comment on above: Performed By: #### 1 [id number] #### [facility] (DEFAULT) [address] [place] [address] 66424 UA Protein Negative Normal NEGATIVE [facility] Comment on above: Performed By: #### 1 [id number] #### [facility] (DEFAULT) [address] [place] [address] 99360 UA Spec Grav 1.010 Normal 1.001-1.[address] [place] [address] Comment on above: Performed By: #### 1 [id number] #### [facility] (DEFAULT) [address] [place] [address] 15249 UA Urobilinogen 0.2 mg/dL Normal 0.2-1.0 [facility] Comment on above: Performed By: #### 1 [id number] #### [facility] (DEFAULT) [address] [place] [address] 44229 Urine Source Clean Catch Normal [facility] Comment on above: Performed By: #### 1 [id number] #### [facility] ([facility]) [address] [place] [address] Provider Orderson 10-31-2022 Provider Orders [id number] Normal [facility] Coding Summaryon 10-20-2022 Coding Summary HTMLBase 64 VzerpvssGAf5hQd+PGhlYWQ+PE 2HXCXiE64lwNNovO8KB1hOUW3M NPXWNXZWRI2YEY6ovLE7AYboG6 VybiAv ExeyqGKsRT03CJn9WJQ1iMcrUT bonO7egFApR5a0KhMeKU62mS64 DCytCKFoMnQ7BiXiggqbfLSw H2vfOrVvnLMxVoh+PHRhYmxlIH xrHUIyNXobGQXgHgKjgIvxFQ4m Yw4mVMEhBTKnaNnfpBXtKhSq w2oeYHZyGFfgUR1roBtdZ9GpqZ S3YQAqw9o2Gp88fZN+PHRkIHN0 dLqgYAqoy096VrTrs8rfTGR8 jNEoJRwiWPM5P86vw5P4AXRaIB XbWMN7cQM4rK2tvHmsglvxY5Yp oKHuMzY4ZBC8iCSxbK1kmPog fimxbK2sFrq+W38LRT2DJUIXKY 5WRxc7P8WbVlhbnGZ+ZI15LIKo KT42lHXxgMHnj3rxcCp0PfCi FPDdFQU3jCavWYvzq5RkZUSkH8 3yqWBdo9E7CCRrbNketKPpQhGb bVF5vP4sVOylqtbwx7trfwnq Nzaic6qwzy50oV99D84eOVfzQZ ArPUF6CXCaULCohZuxpy4rnS2e Ii8+BVjog8nvi0amjTb3MmTf KSMycyRgjWgtBEX0e5QuYo09V6 AjlQkmq2WhZso6ee59nWChg0I8 zCL4YMnuIQHihM1lGKwgUeS5 BQWiLnKcvI13hWSqLXazIy6aeM cldKycSQ0jOHKghdrhTYLtuY5o MDWinWIcvLgjMW6dVTJrqwrw m788AzIhJIA0BVQalXCcP2QgoM 2cAaArQVUnIPDuB7CsvOQuYDsf I741MFjbTxK1WHJsovMxX5Yl FHDigJwrImY4b5K3Tz9Ol4Wxmf jmPBV5VHahQRHvDeUuSsNgZmN6 E6NnAnb6RIKwtHlnHR0xG7Lz NOYgbnnyeykvoYR5MRTtBHMmrR 79eDJzLCazUz4sr3D3d205VBPy HOBfsK51Jb1paJqzLLZjfZFO cY7zyxetc0sehzdsWdGoKNYrMA c4ZKc9HCNgqWgwSpCzJPZ3SxO3 VKQ9rLRmtV6ypRhirzcvkL2a Oyc+B58hlF4uFWW4DBW7vlddOR LrjtHvTZ05WT12T0WeLervlVYy bGU+IJVymsXcnYifLH1iUuCc i1qbf4LwSDnjL4LrMUNrGOmfHw x3SUCtJYT5pBD9wM7dIKJvTDus w1L1cRG6P4EbgoVich8sd6su TFCjTHjlM40eeQJvu6D0HDTnnO M1ADZxjNflRuHesS24Bss+PGNv iBnbz6XpExwnz8mfc8xezWq5 TaYwINWzabJjwHctLLB0k6HlTg 65A92eRHwzILEhWGAbQECnGALr oBkltk5jgA0qWy2+PGNvbCB3 mCF5xC2hHFKuBdF6QCuxG835Af NzgYFxIeuuz8qxs0qreEu5StUk YYUojjAhsPniKFY7v3ThKm94 X82wTQffQVWgKFIiTEKdTHZwhL kzac8fqD6rTk0+HA3bz6dxsr02 qH77yCY+LRBkQMX2gBksBItw HQRggT5qFVohPsE3PQOcMoZqlZ 63tSMaFEyoQb9bxPhgmRnfEI5q LPZfergig601AzVdl5cxMNLm sSWhYHskEBD0F06nv9M7LIJeYQ XmHNU0nXW6fS8nmToroushtMZo gEbegtUbsAxyQMmjEGnfY877 IHRvcDsnPlBhdGllbnQgTmFtZT c8A1ApLvd2XKOxnGnmYP8czTCp EDswFz3rjRxrsXvlCC8cCRDg gznkq283JkZsk4jyBNWweVIvIZ kkIFD1Z47rb3F6AOJxTCFbROO6 cMI5jG3krEsuyqijnLAxeXpo mhPhfRydMIxeBLlcX720ZIXkyX bmJuQnwfRgLIMlpZS8WM35FX74 zHZsx7W2sCO5V2DkJRPzkqpa ukakvOB8TIBjVOMyoA42If5geY ppWi1nYUUlSTG8TANdeXNeY6Uw jM2bDfCdFEKaVYLoB3EayKUx OLkxG837UBabFoY0JWHdjqWtS4 YvKBSxiKjgPfZ2m6L9Fv6KV4A3 PH32PJ11kTPvf9N6bFD1D8Vj NCEhyyidolusbIN0ZPAnXBJyaT 72Kr5zzNvaMf6cQIUcDGP6KXKh jUQiJ8JyzP6hClIfWFWqETWe T7OuwFVxRDpuN441GSmyRzT8HB HjiuUsB6UdCOWwbToyScR2s8S6 Oa8HUIo2GZ40QU58rTVug1V1 uOF5E8JrOYMzvdkbysnlmFL5YR DjHWRudH47Ah7qqPmkWl3mGPMa PEP1SBQufDUwV5DvnV9nWzSh VDGkTJXtP8IvvNOgLUmfX125KO tyAtN6WHDivoZmP9XfEWDqhUdz XwM5i3Z4Dt9TUIGqXW45EGF6 tMN8UP26VX64C8HaTicmtVClaV U+PHRhYmxlIHdpZHRoPScxMDAl QvJhwDuxLN2wOn3ySAGmNYSj aAeptQHuDkUsw9pgUVUpDApwMB 5uuNzmR0SjdFT3YYBdm7w7Ey97 A83uG3BabMH+WJMiaCN3fND7 iN3tSdVrAsK3RDvdS174WdQatV XwKanln3ocd5fvpBy1FmQ8APWw taLrrOytLYA4m0GuPj95F84y IHdpZHRoPSIxNSUiIHZhbGlnbj 4yrM6yNj4+TJEarNT1bNP0bF4w IsQlKcF1ZBdzL920SzXiaSBv Zlanj0amz1ywqFc0IrTkFZSpxe NcdOogLKZ6e8KoUz00C3TgvBdz f1NqDnv6lt29rUDog6E9mLQ7 T1OgNHOqusavyDMqeTqeLX6tSQ MuqqrdPJJgqJ5yCEMwJ3b2FwUq ZqE8POyjD0ZkeaC6TXQkpEJv ZPcdBCB9A32gq4M1FGKxPCBsCM U3zXM4cG0uuDutnqvwhSNpyBds urViiUsdWJyeGHpdK666RTIp jYwcXRTosK4nBZAtyBCfwJquQB 2oAELxdgjgPiFHY21YMicmN6fS YwcJFoSSRJ16YP84tHPfm1Q4 jYA7L0GqDFOadjjftcwgxYR8KE JmUKApqP68vTEqIRgrEu1ek8Y0 w675NGEtNZFaxU02Bm4zzCds KQYlxTQBwU9ecforl3ytfhgaPv NnINOhXVy4QDv2FOKqnBejNgJk YMF7AiW6SXM0ySJmiU4hiKke goyvhC1lWgj+UPGjFDYyMCa2OY wvdGQ+XZUjBDU7gXcrITyaRKNk vN2dGMZaV2l3OgZtApX1DDew I6FzRWTqbkqgGc56cW9cJeDhYn R7KXkkY5JjmnS1XADmzNWfHTli BJO9Y96mb4G4BIIvHFIeKCP0 yQG8zU8qkWgvaanljVNjoWzrru InoNzsHAlfGJfyQ949UTZhuFuw Kxw4XXqtBVSeTX14JS23mFCy y1Z0rRJ8M2SlKIUzqejnyksqkL B2JNRrSMIutC41aZEnAOybIq9q x6J5o613CUAeZUEgeZ58Vr1j qItsDIEraGMJzY1nlzirj4xnkw lbNsPfQCXuRVh4UYi9YDYqfIvp FrTxFTM7EuK2RLU6aDSnvH6t fTzxthqkrX5vWjx+TUFMRTwvdG Q+AEBeTJB7sAgzYZuiMELloX9h FIEaU6y3WyZmRhH1TFltW1Xj FRSgviraJa03kU6bXmYeVzC6KS xmG2WdqxG1QCLvbBMcLLmdFXT2 L65ho6W9XEEsSOEsABK4fLY1 fW0bnCehmdqvuSXbqMgmfyVykK riIPvsQPpwZ743ASSiyMjfOxLq KUFvQX6keQpghJU+EJ45vo40 K8MjPmhxEtq0YNFsHRF0jEZ8vI 6jHZSwRQivz7P7oUM9C3JnhkNb cp3yq9lbPUGwWUlsX51dtIWk e8J5DCXylNP9WFNipSqtUmUisF 93Oyc+KMZxgPnwk4RrOdxnr8yp v0lodYi1SjFhHBJgdjEecHje BNY8q8PhOk17I63gSSczXHEtDU LtAANaWJBmpNbdmg0slA7pQb1+ YTOsjUP9iEV1tU6hFyGbNuN8 UAkeQ635DlEryAQzXzayg0ool3 lnzMk2LnCgOWLvoaHhpJtxQJO0 o8FzBr65O0LugCvif5RlOly7 nm26jIRgc2L1uYU5X7MbIIWxru olbTImnXevTQ9qZAJemznzMWFi aG6oDCXoP4i7ExGsYqA1VClu E1LuwwC3TTAbkDXyTPTrkALEgE 2dnqovz1hjamuoUqBiSSBcNNm9 RQc5YKVluUqkQbBvVGO4AvG3 YZX5nHPbwY7ylScwpbvcnZ8dGk c+WYu9p3dsrIGkCQ5svLH2PK27 BB92kISda8N5rYO8H6BhUYLu btfauegryAA1AYJeZFGegW49Dz 7bsQekVi9kAOHwMRX6FXAccKMf C7MquO9fKpKqFRKeFBLvI5Oc eZSuNFoeL183GCwfZwB2ILJwpw LpI1ClSYRggNncFkL9d5I0Zp0W XU73QD96BL43vGBuj9V5oOP4 E9VqWUOlgdiljpgafMY3XIXpFC MlxC45Sz9ppHwhWe7eLHEmTZF0 ABDpqENzG6QisI9lTpSjTWCt SJMmD6CdeVTmVEvmX592VVbzLh R7QJLcruKyO0DtFOMlvCxlMwB4 g2O7Tz9DGc97WJ37EM63cJGv l1K4yCZ0B9KwCYQkazrirwjibP A5GJApUGLriN24Oo1vlEplCu9y TGToFYU4PBRonROoU2ZpfJ5o ZjHcPMXqSGQlS7JouHHfIQxoY1 78ZBroYhT2XHSidkMfL6BeVTTo tJagViP7i8A7Vc6UYDsyooi0 P4WmXpgtvWD+AK38MJXfJN15wQ DcxPMea4ooePs8NqXbVLHrDLE5 nSdfOTvrr1EiSMEmH81sdCXh c2U (more content not included)... [facility] Coding Summaryon 10-19-2022 Coding Summary HTMLBase 64 VgqpixhuIIn6pTy+PGhlYWQ+PE 9BMYPvM55neLEqyG6HH4lRAH1G GRDHKDDKDT1WQZ1ojOG9UUluY2 VybiAv RybygAByAJ42VNx3DRN3tKfiFD sxrW4diDTpY5y4KnBeMZ15yG29 SRvmPDIuGyR2LjUpcjqouQUy W4ypMcSypTTnNle+PHRhYmxlIH ckCYRuHAogUHLjPqKbvKuyYA5a Vm2zUNBlOTCqvUfzhZBoWmMt q2jkJMLnBXguGJ4hkNvaF6NyhY S2GTIke1x6Ov13lDO+PHRkIHN0 sSewBYhss196IeMqr3gyGXM7 vAMsVTtzDPG8G70gk7J9WYPqAM CgKVX8oYR8gI2xuJdhqnvtL6Pq bMGeKfO8ANV4tNCsnT8csDsc ihfmvC4tUog+L79QTP7JJRWEXQ 7XZzq2R4WfOldytKQ+LF31HHJl BV31tDMdxEJso3uaySj4DiKz ADTsLNH0iMshKLrzu6FfFHLfQ5 4uzHGec4C1TRQjoKzpeZOiBlGm lQU1vB2vJWjmjrhvy6vssvxv Zpynd3kvxh41nZ40G13iHNpzKK HuGAR2IFRsJHRehArven0czE8u Ii8+MDqll5qtv5elxSz9DeJo WTBbehNtaYfmOSU2u2UgJo00D0 BlyGdwc4QvIrl2iw52uYTnh8F2 vRD7UQzvWHPnwW1eDEokRiF0 QZCaMvJsvN62uNTsHQkcMf9qqM senSgiOP1hRHBfacxaJAHbwQ9v KLLzbVQgmEefFN2pZDEcvkzm k411MaRqCIS8DNYwbWQwS7AqwE 9bUgCfYMFsJHLfB1XtpGUoYYjf H336ZHmuYhK6IKZxtgMyN3Kf SFCqiZvzJjV7j6V0Dt1Yo8Eisx alAGB0TDvsTTCuYzLiRlXcRzM3 X5AlKxh7UUIysLcjMJ1qK3Tq HNEegatybgfdpJS7OBSwMPXfiW 21oHKaUDvhMo0tq1R7l428QXVj ZQMkvS18Bb5lrVfeLGAhhTGR tH1pvsmel7azrgmtOyMgVYVlDC k3PLu4RTZvjCulOfSrLUC5BbI6 NMH8vGPccZ5phUgsiexkmI8u Oyc+F29ptY2pZFI9IKI8wadlEA WjwwKmOQ31UM84J3PxQuauxMMt bGU+UAQkjyZgbLrmKP5rWyOl i1san7CnSCvsS0FkARTcOHrlZv b6JSXyFHK8qCF2iK5tHTLbAQxy i7O2oYJ2D9EetpCaiq1qn7ih RWPcWYtfD69boOAss6Z5SIYjoU Z1ZVBnwAimUcFzpD62Kdw+PGNv dYiid5OzFufuz4jpz3wnyMz2 OcGrEQWikbTfzMfsORV2e8LgAr 72Z13xMEptBEQvKSUtYUGyFNVv pRyckr0ryE8xOu7+PGNvbCB3 mHC6cU4tTFDcLgV6ARhyA207Vs NqhATgVxkjh4bck8rmrTm4JlTp NVCzurVsnAouYNS1m1AwTw27 D27tQSzkOFTkMZXmFSPzWRYscO vefd3toD6uYm2+KW9hj7vdwp58 bF40uSA+TRPmYOY1tNfbLIxx PMTgmG9nQJpsPlY0USXvNyLqvK 55dJVyKVdqNt6ejMbrhAiaIW2j PRZjwpbvq234YwHpp5sqXUYy lYDjVAdfKKO2P11ex0F9HYIuYC ZsPHX7qYO0zA5wtEkbqwmtxIPa hSbjayWygBsrZIkbYAjcU116 IHRvcDsnPlBhdGllbnQgTmFtZT o1S7DvPhw6JIYumLvuJD3afUUy DJivMl8axPrzeWpgGH5oMMIx rmcem148XdDfx4diWYTgvSRhGV tnCMC8O49tj8P8SMZeXWTrBHI4 rPZ2oC0vtRbqmcchdSGogNdr wxGnkHhdMGcpXGoxI072KLUzlH bkKmHhfjQnAHFhbWI8NX21IV72 vANri3V5wRH1D6DbULHmwdzj jwwtyCX8VXTkIOCdkA88Qp0caE sdFt1sLBNwUHX1ZJCmvLKxB7Iw aD9yYyZmHPIxNSApL5AirBSg HLyiD111RHxkMyZ1FKBxjlKiO0 FvZZKluHoxOrW5d1G0Ug6DO8D9 GF42NY23sVAoq4F2uKM8J5Ua QCDczxauaddqvWY5VWTgJNBcnE 33Rg2hzUubGs6xTVAyIWH5IKCa aVSnY6JbpR7gYdNhRLBfSAVt N4RipGLsAQosQ998XXmhVqK6CQ YaqaShQ4XxLHSocFeeToH1k9T3 Dr4LMUz8EY47DV43zNKpc7T5 iOS7Q1NiJROrvbszwybahTF2YW NlUWQabZ49Uo6uxKiyFu4pQCBt RGC2ENMkrEEgL5RlsI9yOlTs UEMsLEFwV2XuiXVlFSanL269OQ wzZiH6SAAkzoBtG8GkJTDyjOqz PcT3p3X2Zt5RRYCpCG77BJW2 rNX7KH41BB20N6AaKgqslGQguJ U+PHRhYmxlIHdpZHRoPScxMDAl GxIdtLdjCW1iPe4xDSBxIBKs uWkqaNYaLwHlw1qbKXGnLFpfDN 0hmJgaD8UufGD2VDUth0p7Tp41 H08hT2SjmCG+EXXdkWL8iIK3 hK9oRpZvYeD5YTscT457MbUatZ UkYfjsb7fxs1qxeHv6WoZ8GFJj tmQbmFpaTSX0a4XcUc00R76q IHdpZHRoPSIxNSUiIHZhbGlnbj 8fyT9ePr3+IFXquUQ5oZO4jH2h NlHxFmW7TKivZ911ZzPtjOEi Qeqyn0dmp7tybOi2FyKwGAFsvg RxbExhUAZ2z8ZaPo22Z8AanVzo k8AhBsd2ag09wILhq9O5zUI3 G2ZuGUQogpasdZRhxEdhPP1uAC IuwzirZJHuzA2dNOUzI5o6PnVn DhQ9BDjkB1OdbuO4QZGprHJi DFumSXU2O15xv5N6EMQaSIReDM T2xEY0sL1nfLrqulhlbUPruBwr hcXrtSmsAVhrUYqoW465KOIc dMycJFBaiG5sAQInxQUjpDquPO 2oQCDmhmbsWoXLI62AGxmoU4aT AtuKQuGNJG38KW38rNVzd0F2 hCO0V9GeLTOwdimqzllyoUD4WM KtKWFvoJ81iICwHIyfAv5tz4V6 o346WLLkBBLjdV66Bz5ecZhk LDGhmIHAiF5ibdlyt4ptctlyQe JaWONoZQc4MOs0AZYmlEcpVfTe FXU2IoT8TYW7rLGpeR8azXxb ebftsY5lVwu+DOVwBZPhOCa1KX wvdGQ+CASxLSE4gYalTHfbIJMn uM5oSVPgD7q7RtJuUiT8SKqo A6KfCNRdmnpgJd23zG4aVjBwUr D3REaaO3UhfwJ1AHFknDHhZJaq OVL6G06ec0F1EXTcTDDuKNF9 eXM3pQ3iyBkfobxsiTQffOidgf GtyBnfEAruWYyvA129GQWyeOhz Zak8LFvrNRUtZB56TC27jBGq d6D7iBR1A0MwKJKkspxpjypxtL Z2XSDyNUZjrK94yHAvIVhbLg2g n7M4e628FMJmWLZriB96Ev4j wBvxBKDgkZVItI8gdhgse7xsgi epMsScEIWyPXf1BYq6KPLloOjt HpQsTOE1XtX6TMM9dHHumZ7h jAopjfrglN0qBkl+TUFMRTwvdG Q+VSPfSXT3kRmsMRwmYIYbnS3t BTOiT2i8FbWzInN8ZYtiL9Ob VIFzyiadSg04sA8oNtDxIvA6JQ ucM8YdbyS9SYIgtMTeXPmnYBE8 K41pn4D4IFReASAtNFT8rCF6 yW2bkYvqydnauDWlgDavsyIjoO ahSUizXMufX547YSXriXgoUcZb FNZuDP4lhYuslBS+ZV32is19 G8QsBtorVfp1NRFrUMW4qKZ6dX 9dXFMcDQvuq6T9nHP6J9EkrwJq zm8km6opBPNfFLrlU81ucLHw x6H3EZFftIM1IMOojRjzHcVdeN 93Oyc+JNCgiShzh7UsGzoro1kz d4ccxMy3DcAsQXZetvCvaYjn RFK8p7GrQu52A38dDPdnYODkCC BnALAnSXIsrOwocn0cnJ1bAm4+ RJMfxKN6lDH0fS0oNzPvDpN9 YWirZ512ZpEceQBtPlxta8etc7 iavVq7LtBdOATkjuZqbJgiICS3 c3ObNb54Z2IdhXyrn4LbCpp6 wu45yLUkg9W8xZY6P0EaHMAvpi konZYiiGzaUE5vNTGofzpsBCBj dS2bZBBzY8y5KyHdBiJ6JFpd Y9LachY6PHEzoYFcNWPftJMKwM 0iszjun7fhvoeuAiBrFEGwQEz1 CEw6FRRmjOhfGaLoGAD4ItV3 GOR3pEXwkO2hqBefquafhM0sDf c+NGv1b2mycYGmEU3mpPR1DY97 ZX29aMAml5V8iUF4L7YfLAWs cqrbctycxOP2KQBfCSVvjC90Ju 0maYepTz6jWUYiMNZ3AZIboGGf T4OtsX3sUxSsRYRdQJKdC8Af iDUtITsuF125EModZwX3QVCbzj YoW2ByBQOzdAkfQfG4h4D9Qv3H ZL76XL26CC07iIOvb0D1oLM4 O8RnEPZqutiqmtkujLF8MPPdHG CsxA05Ke3mcGcoKr3dVDYkYVU5 OBYrqFRyS0NesC3dEvSyFTFc NSWqY0YzmHNmFAutO292LZyhRe J3DCAxymLwS1GnLAWwsOduKsS1 y7V3To7FCw13SS51ZX43lVDy u5C8wWC2K2TuLYZkmynlzkzehU R4PUYvYOUocW04Cp3dvObrUb8x ZQKwTCR5JARyaOHoG5VmvR0s GhVfUFUwKVQgO0DedCIjIFifX6 13YWfvQhY0HHIoqfLkB5BaPRQb yClcUlB8t3Z3Xr3UBIecsep9 J5PmRygzfXO+TP39BMGiVC73yU NutLJdf6dqgGi7KjUcLXCsXAV3 qHqjRFemi2NzYJIoS70jmTIq c2U (more content not included)... [facility] Coding Summary HTMLBase 64 WdydfydaVYu3qLz+PGhlYWQ+PE 9YBZTyX42csJFsrZ1QG6yLDJ8K AZRDFRJJVG8OIU5iuCE2WBklZ3 VybiAv HwiehXItBK78CTk6OBO1kJlsEE bnfQ9brTQdB7q2JkZfHS92jD00 TQloNSEdToY9OwWoeraruCRr H8frIkCstKJxLgt+PHRhYmxlIH qjNLAnJNxjJUToQbWsnPpqZH6k Wt2jYYWbZMZekKzuqWCyTfEx o5hbVSHxXNsdOF2lnGwkW0PoeM Z9LHSiy8s6Lm39qLU+PHRkIHN0 oWoxAUtsn017QdOhi7ulXFE5 aDUzSXlkGEG9U50gf5F8IIRhWO McSFT1dIV6aS5quOobqkxaM6Yo eXVsJuC4FGF4lLGsqF1tcWhr diyfyE6mIkh+W32NJP4WREQPRU 6UWia2L8DlRcrkpRG+XE52UVEy EH38nXQarOEic7iwgCn6HrJy KFGeEJH1bIewNHwkv9CjFAUmM1 6fcLCbm3C9ACTwsZncePRhReNl rEA4pA1tSYgrsxdxg3irojsw Opdnv6rgzx66lJ86V50tHGunZU RsUQK3AKStMOPipZpbuc3mvR5t Ii8+AUyvn7uln2lhhUo4AiJd RIVjedGrcAeyRKY8f4BuXu42C9 JrxQbfx0GeQuc3we15xMTde3G5 yIB2ZAtpEJOefT9iVWimQoZ6 OKVzVzIywE29pLPoSHieBy7ncH lvaRyvYJ6nPVLuigpxENEvdN3z ECCkgXJeuNimHP2bYXDvtxar j530PhFjCGU0KHTyeZJzA6UcfQ 8eKuTxQPLmECYfE4UzdRNnOUkj I357WVsaJgV2HDLlzlGtO8Fr YKNfrEglGkS3e6O1Dh3Dm6Upao ugJOW9QThgCQVuYvLaKgHgZfQ6 V5YeBbj3EOUbvXvyMS4iM4Rl JXXoaknpugfsyJF9DBWrPYTjlR 19hRUjOQvdYs7gw1N9z206CSLx JEFwxK27Mp2doVjdMQFagQWD gY2csdxqv6pbvydhKcOaWYPrFC l7TFs9SKTaxOyyUuPvWUM3NtK8 MNL6yLDesG8deXxfivhrnC2x Oyc+G79vgG7xMVE3KMQ4tfuaXR MnxwGsMC79HK61S5YeIlthmBWu bGU+CYXcimVytMtfOZ4tYqZv e4brd7KlEAvlH8ExHMQhCBkxUr o3AUNiUNX5gPV2oA1jLACiVAtv c5L3dLF9K1NcpxVcfk5ol5yz WDTpTDimV81uiIXci3Q5WERsdD I6IJJqpGgdAfFbdS06Qyk+PGNv hMamy2PrAifhr0lbx1adxOt2 PjHiDBFbjmHxdVyuOJS5v4EhJo 81I29lKXzsCBLtMNXuJKAzWRXn zTodxj5lfQ9jVf8+PGNvbCB3 bHY4qY1cXVZiDfR5PEqzZ408Ja AaaACiCvebg5zho8bxrRj7JqZy COSbgtJkgYrsBZC6s5TpEa44 Q04vHLizZWGvDYWrUQCeNMVxsT ucnf7jkB5vCd1+JQ7zt0aqjj98 uU03tWH+HEBeFEM0wUllDDll MDBngV0fFSsrPmQ9YNVzAhZxzV 59fATeYLamXb0raZkqlOrmSB2r PPOnzjnyd150QuBxv2vxJKPw pNUvEGbuMHT3A32gz6C4QOSoYE FvSKX1zOI9eY0gvFfcklrirLCu aYrpcfYbfQanOXxcNTruS276 IHRvcDsnPlBhdGllbnQgTmFtZT q8R3RxNkm5PTXqsGbgSS5jkABj YWffZz0cxIqkfCtpED1mYLAe aarxw854XnPac9koEYStnHWxDO tzRQO6J77kk8W5YHLuLAEiGUZ1 yUD3yM6gzVphagptzURwaQam uwVgkEesKXhfVDpsI773QJEeuZ lgYvYbhcZuKHKbiEA4WI06AY71 rCEyp0I1qEF9K0RnBLZlelmo gvtnsFL4IYPwHPSwxE87To8neJ fdWx6bJUTgAXN7ANPynPUcU0Of lP4hPfAzUBShHSVmF1VpsTOw TLjjU385OHkfKeN7IFJpriEbV2 IoCKIcgXviFxX8c1S9Id8KE8L4 CN02TW94yFSvp3P0sTA7P3Qa KTBydjvyjqgsjIK0XLYpIZSiyM 20Yi7avWkeUc4vFDBlBNM1HWCp lDWxH5YelG5qMnYoXTDpWDYo A7GhyZIjEDedE464RPjpQjG4TC PlsrLzT0OnSMWocJzbPcN5i7M4 Pr0BVNa9JB20YY08xDFoi4H5 zDX0P2WzJVJqsxohiwasmMA3QZ RtJGMrzV93Zv5guUsvPw2lXXTm BNE5DDYzrUAkS5DgnX6aKuZh HJQkLTVjZ4XnaQMhPDolT033RT peBqQ4LCWfncDnS7TxKMMulBmo IlK2o6I3Fw6LFNYuGB07UXK9 hLT1IO42NQ81B2MzTkozuYEirI U+PHRhYmxlIHdpZHRoPScxMDAl WbCgyHlxCY6dHw4lCNIkXBAy vJsseLSmPaNyi5eaOLBeLYmmIC 6xpKmpK4FjnKQ6SVDzy5a7Wc29 O28zN4KwgLG+HXLxlIF7xJN5 fH6iMjMzIsR8DOccI701GzFicE TgWbssg8qif5kweMi0XbN3CGLj jiRiwJyqQGL0z4GhCw29N82q IHdpZHRoPSIxNSUiIHZhbGlnbj 5ipD0hQo4+HAPsqUB1rDB8vX8s FkMvRpM0RYfrD751JrDhiPCu Ycqjk0ega8xevPb4ZuDbUMDlzo StxMouZEC2c5CvRu43I3JpiMgz v8WsPnn8gv30wBWwn1E0kSU0 Y3JvJWYystaptRCbkLznOB9qZB ZnilpsHBRibP6nTMWxU9z1JoGv NqJ0EJtrT0IrlaK6GZLicOFc XZciONK8A81ol4U3EOQsLMJzUF V7bLQ9hZ7pbMowpelbkSRnmYwo qzJyzSvyGOhpATzpW988PZUs nBgjAOAnsH6gPCMjrOFubYcrQD 8rHARjhohgJyYYD97DCsxlH9eJ QgmOVfXUYU96XU93uMFon0X4 kTA0F8RqZFWjdzvaurjltWZ5CG XrIDTetX22rMHmCXhySw6vr2Y0 j350AOXyRHQwmM82Ti6ogSwd LNTbnGXFuT5wxrsxk9cvhvqlNr ZtGJWdSGe2BZi9CKMjvRliGxTo IXH4QiB5DLT5jJWilT6wtGza vyxjvJ4zTxk+MWRqYHGyMJs6GB wvdGQ+WFGqPZF3wEyyURshZYZn qU3iSQWwC2m8FoRhQmB6FBnw Z9HxZOKsgnzaBe67bC1uYwFcMy W7EVvaQ9OvuuX0NWLrmWRgYMhp KJG0K49az3P9AMOqASOjMAZ9 wET4dZ5giLaztuoaaRKjcDlnfc YzrSvjOJhpAAblN952NPNfvKsp Aot8BNnbCARdDE36OS36iTRz u7S8aCH7F2PaTFTshxebiirpeJ X5HLYhKLZzgL43dBXnVMcaZq9x r5R9n876KJBzQTItjV68Id9c pFfrSUCfyDEVyA3wflyyp2xzil lhCvJiSFWqVAo6CXk7UHEyzRbf XbFgNKR0MmI2DSB6bCGcdL2j hBdirusuoV5iVjx+TUFMRTwvdG Q+FSCyXCS3gOvoZGtuEEIllN0d YMIvE3v7CsWzWnF4YKpaG1Ro HFAiymifXp26pH2rDzSyZzY3SC njI0VulyD2OUKstRZeIKbxCFM6 H52ng0H5IUMvPYDzGUB5vRX1 wC6aeSuggelmsNYzjJprauYnzZ zeGIyzSHwiN742VPWfbJazCeFo Y7CgbmfaHlAJaEAlIIKwYB45 LD22BK12V5OjKnojwCDpjOI+PH RhYmxlIHdpZHRoPScxMDAlJyBz cWepIY0dPu2iYHGkKVUpyLxd iLLdDeTym0peWISlRAplRO9vsB ygW8KwvZN5KAJiy7d2Kr07Y03x M0FmbKI+HAAokEA7xVT0iC0p AwWqDdE0ZCteA219QwErbBWfSi qww2xug5socWk0OoWyAREubaFl pMfaOBM6u7AoAm50E61pVSij SFPkHDLkVHHaHASrxKcdwi8hvS 9wIi8+QJAjuSD1uUP3fQ7xPcJs PtR5PCmpZ488NoHfvJYkPpkw S95fH2NrcZE+OXTcRzo3AMJakG mqTG1xqNPmYKdxEt3nKTV3AgBc BmZaCTgtQ1DzEYDfbzqzuwea uUO4QEPqKGQpsC57Jg5xbTpsIl 4cNDHbOTM6UGKkvFGhB4SboW4j PuAjHQRtSHPaE3MrgTPjILyb B445OZmbBeW1FIUmfqItM2DyHZ CogUepFiF6i9C0Qa9UmFnlfJSf WR6kWjGvMMt7C2UuLqw6JCJm gUrpPU2ppJNbUPjrWd4laWwbdM jxQR1uMIUmuyhrv625AeUwt9nf WDEueAWmLNwfAUK4D80as1Z1 NUSnTZLcEBQ7mTA7uP4xxTfboe ogbGVmdDsgdmVydGljYWwtYWxp V702XMDcfJpxCpQMNle4G8Vt Xlu8IANuaJyaSH2djDWlSKgrXv 6ihXlerVxqJF2fDLXyeojlq921 ByRbf7jgSCOtpTDtHLaiAWU8 S03za9J2CDGdQLTxFTY2wVF3nM 1hbGlnbjogbGVmdDsgdmVydGlj BNidMZdmK515DTAzjWozQz4Y Ghf7Z5DuUfz1EZEseWqmQB8fiI BeTUmcKv7wqPuktKspBN0mGBTo jlrtb813YyPop0dyPFHokVFs YFejLRY8U20ar2R2QXInMTXdBZ G9fGX9jA3aqBoorvgrdWLqhWsa jwTwcXupFLjvUKgwT330AAGb cDsnPlBheWVyOjwvdGQ+PC90cj 57T6SpQvnwDor4ISDkBHI3eAC4 cD3kPGQkNZjhk3K8sAP6G5Qj cmR (more content not included)... [facility] Coding Summary HTMLBase 64 NgbciinoRYh3jJg+PGhlYWQ+PE 4QUOSzI76kaKWgeC3FC9nPSL9A VAAXBKGJHN5MUA2mbGS2YLaqN2 VybiAv HgrozIQnYP35KFy4VWC0wKcvKR jgtP0irVHzH0y5FdGqCM80lZ85 MEzoYUKmHuF4DhAqviwpeTAj D7jqKtJxtJCzQzh+PHRhYmxlIH irMCNsQCjbMXQvLzBmcUqfGH3b Cl2vRSEqNZPlzYyrfGAwXgWi j8brGNErXXuzJG6yiSmzQ0OcsE I0DZEvw5e3Ho75tXB+PHRkIHN0 jSmeYKcpw558IjOdw1zrEOD5 sNMeGUxyCLV3R46gy1E4UUKgJO OeVHE5qWA5cK5vlIuiylcaI2Fd fJMrKoG6MWM8mNDtxW7fbUbu bxlurQ8mIhw+C04OAL8LGYLUPM 1UAfp4E1CkZgruoTQ+SB92EOBv BW78pKIrjCNxv2epoIx7YmCa JYDcVCI4vYowGBufs9OiRVMgN4 0gcUGyc7K0XVGttUyumQFyCuAx cCG2yM3sZNtfkubnp3nhbyim Hhvph3iwaq14mE65U69cOJimYR IlBHV2YGHdDIOniPcung6gsI3w Ii8+LGvxp5drp0jegXl0AcUt ZECvixSzeJcpTIV0a4DyAt14K5 AglEvhk5LgHnr8pt67uTQog8D9 tRU2NClvUQFmlW7hTJcuEyB6 RFLqPsXdrX04bPDyXHaxCw3tvI wnhCiiIY6tEHEfvrbfXISewJ1j RQUdnDKziGqqVA3lIHDvgwvv c550VdAuRAH8JDBlnLZlV2RzcP 7eUeFmEMRhVSZfU5BipCLkGYmm I270JZscKrX2RDTmaxKwS0Oe OPUapVvdFcQ3c1R6Sg1Ok7Pksq sbNFY9VGaxTRYuEpOdTwNlQsW3 W4WzOdx8SKZxaZhbKI9zV1Xx WHMhspnjmpefeEM8YIRxFDJhzN 91zUZrHLqqXm2mj4F7x768QCBw ZJFpnN75Ag9hhDohIMRlaISM eG4rrmiaq8drtbhqUvAjHZUdMU k9YEc2XXYulMtuHvQfCZR1CrT9 TMC5bJIwsJ2cjNqglauwnX2m Oyc+X32dwA4oZMO0LEZ9kzoxSB WyyqPlJF80CR31N5BlJmaxbRIe bGU+ETSwybFwkAbvSV3yQeTw j0wew2OrHVreO4AtMEKhEBmbNc q0SQIhJII3tJT8wX5wBPTsEZad s4K0xYL5V4IxuuTzow0mt4qn QKBbZNlmG06oqGPwa2D6JPQjcR S7UDPlbUxcLlNewZ69Zut+PGNv wXlbn6DfHsgag5oel0iadXn3 DyOpWGOjtuUzwEfhWYI5z0SaCc 61W62xESxsSVXqVPLxCWDlBXLy iTjxpg3koP0qYr7+PGNvbCB3 rAD2sR0oRZYiWvV4HFvwI124Km FvuEHyUjitu4eqa2yrnKe9UkFa IYCcwzYunOmuSQT8t5MqHs53 O33uWCxkTROhAAJtLOGqOBNkuP mkdp8dlT3eZr5+LP2mo4dxrt36 gY00kPN+HJAxFLD0lGgtZSiz JDOptH1zELrbWmW2MFMpQeSgoF 63sPOlOCdeSf5lgTwndQcxCC6t ZBWkxxbsn700VgXnm3ydWCEw nOOrZYroPLP8D63xy1A5HINjXO EhJWO4aIM5mW7jpCmezpekqKJa hLrfaqXpdFctZUfwYTnrM079 IHRvcDsnPlBhdGllbnQgTmFtZT y6R3VuVpl8XRJpbAsgWH2dtIRs QXnlWr3tgRhbfKboEG1gXJSn lzuwn408FqNpk3rnXZPjnRDqKZ agQWI7B27xm5Y3RNMsJTRvTUS4 pGO0jT3lnWourioszZBwxOah xcFvaKweJPrsPWdiH549VOFvmM fbHhRcmkYfMIPlcOJ7PM11PI71 pSKsy4G2hIJ5X1KcYNDwdsvp uouujVM3VLUxHDUmnW77Mn4ufG njDn2tIRIcDVX9RLUbbPLmM4Fm cY4eCgQoYITeSERoX0YsgFCx JCleL691FGzfPoH6JWIpmfUfM5 KuQQNpyGpbNiT9i6K8Rt0MN6O5 ZZ44WC22xZQwb8F5fJJ1E1Rm EPOclljirewsdMQ3AGCsLHWsxQ 39Cd1qlKsqXk0aJPDbCCJ3AVFd zPTcM1OkyR2bDvJyQKWcPYUr B2ZisYMeFOkzS018UOtqIpY7ER YzvlNdL3KoCLSqbVufWuR5f5T0 Yp1IQTq9VG85UY44cLJwp3S4 kPX7P0DbTRTgfhnzogrpeIE8PU EtWPKygG26Gd6kiUfnGb3pMMAj WKJ9PYNkhYJvO1VgdL5wBhQp KGTuARBkN1SbbQZdGZxcE487TZ kyGiW7ATNxkwVzL9ZsHWRirNtw XdT7j8Y5Ve8XWKXjWG79INS5 pHE6OY60HK36U8BcXdhziKMdeN U+PHRhYmxlIHdpZHRoPScxMDAl HiDjlPwoVT2jTi3sICXpHRQa lCdfjMQcLbYux4ngXTIcJEjlDS 8wgOyiU7RhdAF7WBWwq4z2Gk91 I23nI0QmsRV+NJNmoJX1zFJ9 vF1sOkTjEbE8TAhnT738IaGgsK FdRgohe1nsg6jibEp4UoT8SVCt dyCjbOddWHV6o8PsOh99L44u IHdpZHRoPSIxNSUiIHZhbGlnbj 1vfH1yHi5+BESagVY8zVD2kP9i HrJzFeI9VOfyC599HdIxgVDp Nkfir9xin0hapQi4CnXqHHOznt TzkZveTVR9d0WnSr94T8MwkLnp a1HoEhh9zr16bJTtq2H5sJT6 O5FsDIKxcsffmTPatDltBO0sJZ KxbinqIEGqwV8eMJJwN1b1KeBo DfB9PXbsI6SbwlS6TMHvyWOv MLciLMS2L60nw7M7ZHJjXOLxTF C7jQY2fI2ouCvvuxlqnYBucLct fnRzzYuuBQewVHgiU288QPPm aGtmQILmhU8pNYJdjQMlmFzeDS 6tOOQrgetdRhQPG99SCchnT9oK LwiBVhNZQB02EC41vJPqd6N7 oUQ6E2VqMFLswyyqmuqcyWO8KW WxIVAqgC58nNJzBXkcQv1yd4Y6 c592JWStDANmqP04Or8qsDwa ECEfuEXHjX1lkorik6sqjneaHq BhTSAkLPz4RKw2NQGowPnpPrPh EDV3GgZ7CEU6sTQniQ1yvScr mgpfsA2eTmv+RWLdXZCnMAo9WY wvdGQ+FEBbZMC6lClcSApcXLPr wY9zUTUmP4e5TmVzBeE6TGjy L6YzHQOsxbikCh28cN5oEdFaXt C5LOzfE3JltmU9HJWscMJeLWjp YAN3Q67nr6D2IRHeTGYbLUD4 dAG7rP2mwXtzjrmrcEFfpQxelp BkiHluZIarSWrzQ094FVKvkPyo Yye6DWgdEAQuUU04IM99mIIc w9X9kWR8Y0TtMFKfsfqnysdgyK B9WDPeJAFtqI83dRPyGUdpWj7t b4U7q697GYFjVBVryH56Oh1l vPuhUNBziMHDgI5jspffo5rlme zsRfAiGSImEYq9DQx8RGUmhKtq NlLjAEZ3YkS1UOK0fYOwgW7r yYgbdsrgcS4eSkf+TUFMRTwvdG Q+HQUsYXR3wXdmWKelDKSwhU7c FZQiF9v7PzGhAvB0RZikP7Vn CNXpwqczYe27cJ5sFlHpOsK7UQ jfI1EyjcK2YCEvbHGrIXrrFGX7 M91qv1I4JDAqRTLqMIH4eKG0 zO4rqTgzbjvppMQydJhaadOvwI zhDHkxATjuA641LXLinKvhAcVi X6IirsdiWsBTpYFvKSExKC33 SH39QS28D3IsHkwvlQOgmUE+PH RhYmxlIHdpZHRoPScxMDAlJyBz pZvrPN9dRk2mVTOhIVGdtWgu eNPfEvVef3yrLQVbOTuhAM8ibD fnH3IasGD7JVMri5f5Xk33U07u X2BjdNN+TRVdzWU8sAB0iK7p BqRzOrQ2KLixJ937AmIgxRPuLn gnu0myk9tesGa2NvGePRRnsrKb cTppIKT1s0RnVr07C50jIYyf OYIwENFxOOXjJPTxtAloym9cxO 9wIi8+UAArcDA5fUO9nX5gLwEo IhX4BIjcM381AlVdgVTeFkre R66lE6UvtAP+KIDjFij7NVYfxZ ubFC1deTQrDKudZo2zZRO9VhIs MwEqXPmbY2XpPWAcqmidzgtj eHG1AOMzXOQjjT69Xs2pcBhiOe 3lIJLyNYE1NRJwrHViN7OaqF5q DlDhKCLiZCYdN9OlxZPqRYqh V985KGxzQcU6EUTabpXfT3DmUO PgaBdcMbC3n0S7Es6PxTepsKGi NB9qVaRbMZw7Q5OwHju7SYLi aGmqNE8hrEMwFJgaFn2bnCvcaN prEN5rHFDzspzsf483VqNvb5dt IRFpeFOiEXuuBNS9Q31vr7A9 IMRbNKJcBLF5gMV9nV4awSpdwh ogbGVmdDsgdmVydGljYWwtYWxp A097VQGtjWedZpCYPqj1W7Wy Ptz2FIMjnKuuOX6rrVHoOYibLv 5wzWjxvUcjGT7nQIZimjhct888 NaTvi8roCHVdwVNhQBnnITZ7 Q55no0I9WLKqDHYuJBP9oLV1rV 1hbGlnbjogbGVmdDsgdmVydGlj NFayKJtgR040TDOhmJqeJz0M Kkl9X5AxHiw0QYAszHzbKV2osB XxAUmgEf3gnVwgtPnqSJ5oHHDy fmogd684IzPto6vtATNznKEs CBfeODY7J88mt5V2NPJnSYCzSP R9fNH9bE3wlOqxgincmNLjrHur nuXijEscTDhgPGqoQ635ZPKn cDsnPlBheWVyOjwvdGQ+PC90cj 70O8LuQutyUgd6NWJwFBL8sZP3 gT3lELCyVUlft3T7vHW0O9Dg cmR (more content not included)... Normal [facility] Basic Metabolic Panelon 09-22 Anion gap [Moles/Vol] 15 mmol/L 9 - 17 mmol/L LEWISGALE [facility] Calcium [Mass/Vol] 8.3 mg/dL Low 8.6 - 10. 4 mg/dL [facility] Chloride [Moles/Vol] 102 mmol/L 98 - 10 7 mmol/L [facility] CO2 [Moles/Vol] 23 mmol/L 20 - 31 mmol/L [facility] Creatinine [Mass/Vol] 1.17 mg/dL 0.70 - 1.20 mg/dL [facility] GFR/1.73 sq M.predicted MDRD (S/P/Bld) [Vol rate/Area] - PINF [facility] Comment on above: These results are not intended for use in patients <18 years of age. eGFR results are calculated without a race factor using the 2020 CKD-EPI equation. Careful clinical correlation is recommended, particularly when comparing to results calculated using previous equations. The CKD-EPI equation is less accurate in patients with extremes of muscle mass, extra-renal metabolism of creatine, excessive creatine ingestion, or following therapy that affects renal tubular secretion. Glucose [Mass/Vol] 91 mg/dL 70 - 99 mg/dL [facility] Interpretation and review of laboratory results Abnormal [facility] Potassium [Moles/Vol] 3.2 mmol/L Low 3.7 - 5.3 mmol/L [facility] Sodium [Moles/Vol] 140 mmol/L 135 - 144 mmol/L [facility] Urea nitrogen [Mass/Vol] 17 mg/dL 8 - 23 mg/dL [facility] Basic Metabolic Profon 10-18 Anion gap [Moles/Vol] 15 mmol/L Normal 9-17 [facility] Comment on above: Performed By: #### M Hannah, CBC, BMP #### [employer] [address] [place] [address] Telephone Messenger: Wenceslao Rose MD Calcium [Mass/Vol] 8.3 mg/dL Low 8.6-10.4 [facility] Comment on above: Performed By: #### M G, CBC, BMP #### [employer] [address] [place], [place] [id number] Telephone Messenger: Wenceslao Rose MD Chloride [Moles/Vol] 102 mmol/L Normal 98-107 [facility] Comment on above: Performed By: #### M G, CBC, BMP #### [employer] [address] [place] [address] Telephone Messenger: Wenceslao Rose MD CO2 [Moles/Vol] 23 mmol/L Normal 20-31 [facility] Comment on above: Performed By: #### M G, CBC, BMP #### [facility] [address] [place] [address] Telephone Messenger: Wenceslao Rose MD Creatinine [Mass/Vol] 1.17 mg/dL Normal 0.70-1.20 [facility] Comment on above: Performed By: #### M G, CBC, BMP #### [facility] [address] [place] [address] Telephone Messenger: Wenceslao Rose MD GFR/1.73 sq M.predicted among non-blacks MDRD (S/P/Bld) [Vol rate/Area] mL/min/{1.73_m2} Normal >60 [facility] Comment on above: Result Comment: These results are not intended for use in patients <18 years of age. eGFR results are calculated without a race factor using the 2020 CKD-EPI equation. Careful clinical correlation is recommended, particularly when comparing to results calculated using previous equations. The CKD-EPI equation is less accurate in patients with extremes of muscle mass, extra-renal metabolism of creatine, excessive creatine ingestion, or following therapy that affects renal tubular secretion. Performed By: #### M Hannah, CBC, BMP #### [facility] [address] [place] [address] Telephone Messenger: Wenceslao Rose MD Glucose [Mass/Vol] 91 mg/dL Normal 70-99 [facility] Comment on above: Performed By: #### M G, CBC, BMP #### [facility] [address] [place] [address] Telephone Messenger: Wenceslao Rose MD Potassium [Moles/Vol] 3.2 mmol/L Low 3.7-5.3 [facility] Comment on above: Performed By: #### M Hannah, CBC, BMP #### [facility] [address] Telephone Messenger: Wenceslao Rose MD Sodium [Moles/Vol] 140 mmol/L Normal 135-144 [facility] Comment on above: Performed By: #### M G, CBC, BMP #### [address] [address] Telephone Messenger: Wenceslao Rose MD Urea nitrogen [Mass/Vol] 17 mg/dL Normal 8-23 [facility] Comment on above: Performed By: #### M G, CBC, BMP #### [address] [address] Telephone Messenger: Wenceslao Rose MD CBCon 10-18-2022 Erythrocyte distribution width (RBC) [Ratio] 21.9 % High 11.8-14.4 [facility] Comment on above: Performed By: #### Mc G, CBC, BMP #### [address] [address] Telephone Messenger: Wenceslao Rose MD Hematocrit (Bld) [Volume fraction] 35.2 % Low 40.7-50.3 [facility] Comment on above: Performed By: #### M G, CBC, BMP #### [facility] [address] [place] [address] Telephone Messenger: Wenceslao Rose MD Hemoglobin (Bld) [Mass/Vol] 10.2 g/dL Low 13.0-17.0 [facility] Comment on above: Performed By: #### M G, CBC, BMP #### [facility] [address] [place] [address] Telephone Messenger: Wenceslao Rose MD MCH (RBC) [Entitic mass] 22.3 pg Low 25.2-33.5 [facility] Comment on above: Performed By: #### M G, CBC, BMP #### [facility] [address] [place] [address] Telephone Messenger: Wenceslao Rose MD MCHC (RBC) [Mass/Vol] 29.0 g/dL Normal 28.4-34.8 [facility] Comment on above: Performed By: #### Mc Young, CBC, BMP #### [address] [address] Telephone Messenger: Wenceslao Rose MD MCV (RBC) [Entitic vol] 76.9 fL Low 82.6-102.9 [facility] Comment on above: Performed By: #### Mc G, CBC, BMP #### [address] [address] Telephone Messenger: Wenceslao Rose MD NRBC Automated 0.0 per 100 WBC Normal 0.0 [facility] Comment on above: Performed By: #### Mc Young, CBC, BMP #### [address] [address] Telephone Messenger: Wenceslao Rose MD Platelet mean volume (Bld) [Entitic vol] 10.1 fL Normal 8.1-13.5 [facility] Comment on above: Performed By: #### Mc Young, CBC, BMP #### [address] [address] Telephone Messenger: Wenceslao Rose MD Platelets (Bld) [#/Vol] 198 10*3/uL Normal 138-453 [facility] Comment on above: Performed By: #### Mc G, CBC, BMP #### [address] [address] Telephone Messenger: Wenceslao Rose MD RBC (Bld) [#/Vol] 4.58 10*6/uL Normal 4.21-5.77 [facility] Comment on above: Performed By: #### Mc G, CBC, BMP #### [address] [address] Telephone Messenger: Wenceslao Rose MD WBC (Bld) [#/Vol] 6.2 10*3/uL Normal 3.5-11.3 [facility] Comment on above: Performed By: #### Mc G, CBC, BMP #### [employer] [facility] [address] [place], [place] [phone] Telephone Messenger: Wenceslao Rose MD Hematocrit (Bld) [Volume fraction] 35.2 % Low 40.7 - 50.3 % [facility] Hemoglobin (Bld) [Mass/Vol] 10.2 g/dL Low 13.0 - 17.0 g/dL [facility] Interpretation and review of laboratory results Abnormal [facility] MCH (RBC) [Entitic mass] 22.3 pg Low 25.2 - 33.5 pg [facility] MCHC (RBC) [Mass/Vol] 29.0 g/dL 28.4 - 34.8 g/dL [facility] MCV (RBC) [Entitic vol] 76.9 fL Low 82.6 - 102.9 fL [facility] NRBC Automated 0.0 0.0 per 100 WBC [facility] Platelet distribution width (Bld) [Ratio] 21.9 % High 11.8 - 14.4 % [facility] Platelet mean volume (Bld) [Entitic vol] 10.1 fL 8.1 - 13.5 fL [facility] Platelets (Bld) [#/Vol] 198 10*3/uL [facility] RBC (Bld) [#/Vol] 4.58 10*6/uL 4.21 - 5.77 m/uL [facility] WBC (Bld) [#/Vol] 6.2 10*3/uL [facility] Magnesiumon 10-18-2022 Magnesium [Mass/Vol] 2.0 mg/dL Normal 1.6-2.6 [facility] Comment on above: Performed By: #### M G, CBC, BMP #### [employer] [facility] [address] [place] [address] Telephone Messenger: Wenceslao Rose MD Magnesium [Mass/Vol] 2.0 mg/dL 1.6 - 2 .6 mg/dL [facility] Basic Metabolic Panelon 09-22 Anion gap [Moles/Vol] 15 mmol/L 9 - 17 mmol/L [facility] Calcium [Mass/Vol] 8.8 mg/dL 8.6 - 10. 4 mg/dL [facility] Chloride [Moles/Vol] 102 mmol/L 98 - 10 7 mmol/L [facility] CO2 [Moles/Vol] 22 mmol/L 20 - 31 mmol/L [facility] Creatinine [Mass/Vol] 1.09 mg/dL 0.70 - 1.20 mg/dL [facility] GFR/1.73 sq M.predicted MDRD (S/P/Bld) [Vol rate/Area] - PINF [facility] Comment on above: These results are not intended for use in patients <18 years of age. eGFR results are calculated without a race factor using the 2020 CKD-EPI equation. Careful clinical correlation is recommended, particularly when comparing to results calculated using previous equations. The CKD-EPI equation is less accurate in patients with extremes of muscle mass, extra-renal metabolism of creatine, excessive creatine ingestion, or following therapy that affects renal tubular secretion. Glucose [Mass/Vol] 98 mg/dL 70 - 99 mg/dL [facility] Interpretation and review of laboratory results Abnormal [facility] Potassium [Moles/Vol] 3.6 mmol/L Low 3.7 - 5.3 mmol/L [facility] Sodium [Moles/Vol] 139 mmol/L 135 - 144 mmol/L [facility] Urea nitrogen [Mass/Vol] 19 mg/dL 8 - 23 mg/dL [facility] Basic Metabolic Profon 10-17 Anion gap [Moles/Vol] 15 mmol/L Normal 9-17 [facility] Comment on above: Performed By: #### B MP, CBC #### [facility] [address] [place] [address] Telephone Messenger: Wenceslao Rose MD Calcium [Mass/Vol] 8.8 mg/dL Normal 8.6-10.4 [facility] Comment on above: Performed By: #### B MP, CBC #### [address] [address] Telephone Messenger: Wenceslao Rose MD Chloride [Moles/Vol] 102 mmol/L Normal 98-107 [facility] Comment on above: Performed By: #### B MP, CBC #### [address] [address] Telephone Messenger: Wenceslao Rose MD CO2 [Moles/Vol] 22 mmol/L Normal 20-31 [facility] Comment on above: Performed By: #### B MP, CBC #### [address] [address] Telephone Messenger: Wenceslao Rose MD Creatinine [Mass/Vol] 1.09 mg/dL Normal 0.70-1.20 [facility] Comment on above: Performed By: #### B MP, CBC #### [address] [address] Telephone Messenger: Wencesalo Rose MD GFR/1.73 sq M.predicted among non-blacks MDRD (S/P/Bld) [Vol rate/Area] mL/min/{1.73_m2} Normal >60 [facility] Comment on above: Result Comment: These results are not intended for use in patients <18 years of age. eGFR results are calculated without a race factor using the 2020 CKD-EPI equation. Careful clinical correlation is recommended, particularly when comparing to results calculated using previous equations. The CKD-EPI equation is less accurate in patients with extremes of muscle mass, extra-renal metabolism of creatine, excessive creatine ingestion, or following therapy that affects renal tubular secretion. Performed By: #### B MP, CBC #### [address] [address] Telephone Messenger: Wenceslao Rose MD Glucose [Mass/Vol] 98 mg/dL Normal 70-99 [facility] Comment on above: Performed By: #### B MP, CBC #### [facility] [address] [place] [address] Telephone Messenger: Wenceslao Rose MD Potassium [Moles/Vol] 3.6 mmol/L Low 3.7-5.3 [facility] Comment on above: Performed By: #### B MP, CBC #### [facility] [address] [place] [address] Telephone Messenger: Wenceslao Rose MD Sodium [Moles/Vol] 139 mmol/L Normal 135-144 [facility] Comment on above: Performed By: #### B MP, CBC #### [facility] [address] [place] [address] Telephone Messenger: Wenceslao Rose MD Urea nitrogen [Mass/Vol] 19 mg/dL Normal 8-23 [facility] Comment on above: Performed By: #### B MP, CBC #### [address] [address] Telephone Messenger: Wenceslao Rose MD CBCon 10-17-2022 Erythrocyte distribution width (RBC) [Ratio] 22.3 % High 11.8-14.4 [facility] Comment on above: Performed By: #### B MP, CBC #### [facility] [address] [place] [address] Telephone Messenger: Wenceslao Rose MD Hematocrit (Bld) [Volume fraction] 36.9 % Low 40.7-50.3 [facility] Comment on above: Performed By: #### B MP, CBC #### [facility] [address] [place] [address] Telephone Messenger: Wenceslao Rose MD Hemoglobin (Bld) [Mass/Vol] 10.5 g/dL Low 13.0-17.0 [facility] Comment on above: Performed By: #### B MP, CBC #### [address] [address] Telephone Messenger: Wenceslao Rose MD MCH (RBC) [Entitic mass] 22.2 pg Low 25.2-33.5 [facility] Comment on above: Performed By: #### B MP, CBC #### [address] [address] Telephone Messenger: Wenceslao Rose MD MCHC (RBC) [Mass/Vol] 28.5 g/dL Normal 28.4-34.8 [facility] Comment on above: Performed By: #### B MP, CBC #### [address] [address] Telephone Messenger: Wenceslao Rose MD MCV (RBC) [Entitic vol] 78.0 fL Low 82.6-102.9 [facility] Comment on above: Performed By: #### B MP, CBC #### [address] [address] Telephone Messenger: Wenceslao Rose MD NRBC Automated 0.0 per 100 WBC Normal 0.0 [facility] Comment on above: Performed By: #### B MP, CBC #### [place] [address] Telephone Messenger: Wenceslao oRse MD Platelet mean volume (Bld) [Entitic vol] 10.3 fL Normal 8.1-13.5 [facility] Comment on above: Performed By: #### B MP, CBC #### [address] [address] Telephone Messenger: Wenceslao Rose MD Platelets (Bld) [#/Vol] 185 10*3/uL Normal 138-453 [facility] Comment on above: Performed By: #### B MP, CBC #### [place] [address] [place], [place] [phone] Telephone Messenger: Wenceslao Rose MD RBC (Bld) [#/Vol] 4.73 10*6/uL Normal 4.21-5.77 [facility] Comment on above: Performed By: #### B MP, CBC #### [employer] [address] [place], [place] [phone] Telephone Messenger: Wenceslao Rose MD WBC (Bld) [#/Vol] 6.6 10*3/uL Normal 3.5-11.3 [facility] Comment on above: Performed By: #### B MP, CBC #### [facility] [address] [place], [place] [phone] Telephone Messenger: Wenceslao Rose MD Hematocrit (Bld) [Volume fraction] 36.9 % Low 40.7 - 50.3 % [facility] Hemoglobin (Bld) [Mass/Vol] 10.5 g/dL Low 13.0 - 17.0 g/dL [facility] Interpretation and review of laboratory results Abnormal [facility] MCH (RBC) [Entitic mass] 22.2 pg Low 25.2 - 33.5 pg [facility] MCHC (RBC) [Mass/Vol] 28.5 g/dL 28.4 - 34.8 g/dL [facility] MCV (RBC) [Entitic vol] 78.0 fL Low 82.6 - 102.9 fL [facility] NRBC Automated 0.0 0.0 per 100 WBC [facility] Platelet distribution width (Bld) [Ratio] 22.3 % High 11.8 - 14.4 % [facility] Platelet mean volume (Bld) [Entitic vol] 10.3 fL 8.1 - 13.5 fL [facility] Platelets (Bld) [#/Vol] 185 10*3/uL [facility] RBC (Bld) [#/Vol] 4.73 10*6/uL 4.21 - 5.77 m/uL [facility] WBC (Bld) [#/Vol] 6.6 10*3/uL [facility] Cult,Urineon 10-17-2022 Cult,Urine Specimen Description .CLEAN CATCH URINE Culture NO GROWTH Report Status FINAL 10/17/2022 Normal [facility] Comment on above: Performed By: #### U RC #### [facility] [address] [place] [address] Telephone Messenger: Wenceslao Rose MD Culture, Urineon 10-17-2022 Microorganism identified Cx Nom (Unsp spec) NO GROWTH [facility] Specimen Description .CLEAN CATCH URINE [facility] Basic Metab w/rfx MGon 10-16 Anion gap [Moles/Vol] 11 mmol/L Normal 9-17 [facility] Comment on above: Performed By: #### P RCAL, BMPX, CRP, PT #### [facility] [address] [place] [address] Telephone Messenger: Wenceslao Rose MD Calcium [Mass/Vol] 8.1 mg/dL Low 8.6-10.4 [facility] Comment on above: Performed By: #### P RCAL, BMPX, CRP, PT #### [facility] [address] [place] [address] Telephone Messenger: Wenceslao Rose MD Chloride [Moles/Vol] 104 mmol/L Normal 98-107 [facility] Comment on above: Performed By: #### P RCAL, BMPX, CRP, PT #### [employer] [address] [place] [address] Telephone Messenger: Wenceslao Rose MD CO2 [Moles/Vol] 23 mmol/L Normal 20-31 [facility] Comment on above: Performed By: #### P RCAL, BMPX, CRP, PT #### [facility] [address] [place] [address] Telephone Messenger: Wenceslao Rose MD Creatinine [Mass/Vol] 1.13 mg/dL Normal 0.70-1.20 [facility] Comment on above: Performed By: #### P RCAL, BMPX, CRP, PT #### [facility] [address] [place] [address] Telephone Messenger: Wenceslao Rose MD GFR/1.73 sq M.predicted among non-blacks MDRD (S/P/Bld) [Vol rate/Area] mL/min/{1.73_m2} Normal >60 [facility] Comment on above: Result Comment: These results are not intended for use in patients <18 years of age. eGFR results are calculated without a race factor using the 2020 CKD-EPI equation. Careful clinical correlation is recommended, particularly when comparing to results calculated using previous equations. The CKD-EPI equation is less accurate in patients with extremes of muscle mass, extra-renal metabolism of creatine, excessive creatine ingestion, or following therapy that affects renal tubular secretion. Performed By: #### P RCAL, BMPX, CRP, PT #### [employer] [address] [place] [address] Telephone Messenger: Wenceslao Rose MD Glucose [Mass/Vol] 95 mg/dL Normal 70-99 [facility] Comment on above: Performed By: #### P RCAL, BMPX, CRP, PT #### [employer] [address] [place] [address] Telephone Messenger: Wenceslao Rose MD Potassium [Moles/Vol] 3.6 mmol/L Low 3.7-5.3 [facility] Comment on above: Performed By: #### P RCAL, BMPX, CRP, PT #### [facility] [address] [place] [address] Telephone Messenger: Wenceslao Rose MD Sodium [Moles/Vol] 138 mmol/L Normal 135-144 [facility] Comment on above: Performed By: #### P RCAL, BMPX, CRP, PT #### [employer] [address] [place], [place] [address], [place] [address] Telephone Messenger: Wenceslao Rose MD Urea nitrogen [Mass/Vol] 16 mg/dL Normal 8-23 [facility] Comment on above: Performed By: #### P RCAL, BMPX, CRP, PT #### [facility] [place] [address] Telephone Messenger: Wenceslao Rose MD Basic Metabolic Panel w/ Ref mitchel to MGon 10-16-2022 Anion gap [Moles/Vol] 11 mmol/L 9 - 17 mmol/L [facility] Calcium [Mass/Vol] 8.1 mg/dL Low 8.6 - 10. 4 mg/dL [facility] Chloride [Moles/Vol] 104 mmol/L 98 - 10 7 mmol/L [facility] CO2 [Moles/Vol] 23 mmol/L 20 - 31 mmol/L [facility] Creatinine [Mass/Vol] 1.13 mg/dL 0.70 - 1.20 mg/dL [facility] GFR/1.73 sq M.predicted MDRD (S/P/Bld) [Vol rate/Area] - PINF [facility] Comment on above: These results are not intended for use in patients <18 years of age. eGFR results are calculated without a race factor using the 2020 CKD-EPI equation. Careful clinical correlation is recommended, particularly when comparing to results calculated using previous equations. The CKD-EPI equation is less accurate in patients with extremes of muscle mass, extra-renal metabolism of creatine, excessive creatine ingestion, or following therapy that affects renal tubular secretion. Glucose [Mass/Vol] 95 mg/dL 70 - 99 mg/dL [facility] Interpretation and review of laboratory results Abnormal [facility] Potassium [Moles/Vol] 3.6 mmol/L Low 3.7 - 5.3 mmol/L [facility] Sodium [Moles/Vol] 138 mmol/L 135 - 144 mmol/L [facility] Urea nitrogen [Mass/Vol] 16 mg/dL 8 - 23 mg/dL [facility] C-Reactive Proteinon 10-16-2 023 CRP [Mass/Vol] 86.3 mg/L High 0.0-5.0 [facility] Comment on above: Performed By: #### M G, CBC, BMP #### [facility] [address] [place] [address] Telephone Messenger: Wenceslao Rose MD CRP High sensitivity method [Mass/Vol] 86.3 mg/L High 0.0 - 5.0 mg/L [facility] Interpretation and review of laboratory results Abnormal [facility] CBC with Auto Differentialon 10-16-2022 Absolute Eos # 0.13 [facility] Absolute Immature Granulocyte 0.00 [facility] Absolute Lymph # 0.82 Low [facility] Absolute Turner # 0.[address] [facility] Basophils (Bld) [#/Vol] 0.00 10*3/uL [facility] Basophils/100 WBC (Bld) 0 % 0 - 2 % [facility] Eosinophils/100 WBC (Bld) 2 % 1 - 4 % [facility] Hematocrit (Bld) [Volume fraction] 33.5 % Low 40.7 - 50.3 % [facility] Hemoglobin (Bld) [Mass/Vol] 10.2 g/dL Low 13.0 - 17.0 g/dL [facility] Immature granulocytes/100 WBC (Bld) 0 % 0 [facility] Interpretation and review of laboratory results Abnormal [facility] Lymphocytes/100 WBC (Bld) 13 % Low 24 - 44 % [facility] MCH (RBC) [Entitic mass] 22.5 pg Low 25.2 - 33.5 pg [facility] MCHC (RBC) [Mass/Vol] 30.4 g/dL 28.4 - 34.8 g/dL [facility] MCV (RBC) [Entitic vol] 73.8 fL Low 82.6 - 102.9 fL [facility] Monocytes/100 WBC (Bld) 14 % High 1 - 7 % [facility] Morphology Ck (Bld) [Interp] ANISOCYTOSIS PRESENT [facility] Morphology Ck (Bld) [Interp] MICROCYTOSIS PRESENT [facility] NRBC Automated 0.0 0.0 per 100 WBC [facility] Platelet distribution width (Bld) [Ratio] 22.2 % High 11.8 - 14.4 % [facility] Platelets (Bld) [#/Vol] See Reflexed IPF Result [facility] RBC (Bld) [#/Vol] 4.54 10*6/uL 4.21 - 5.77 m/uL [facility] Segmented neutrophils/100 WBC (Bld) 71 % High 36 - 66 % [facility] Segs Absolute 4.47 [facility] WBC (Bld) [#/Vol] 6.3 10*3/uL [facility] CBC with Diffon 10-16-2022 Abs. Basophil 0.00 k/uL Normal 0.0-0.2 [facility] Comment on above: Performed By: #### C DP, IPF #### [facility] [address] [place] [address] Telephone Messenger: Wenceslao Rose MD Abs.Imm.Granulocyte 0.00 k/uL Normal 0.00-0.30 [facility] Comment on above: Performed By: #### C DP, IPF #### [employer] [address] [place] [address] Telephone Messenger: Wenceslao Rose MD Abs.Neutrophil (Seg) 4.47 k/uL Normal 1.8-7.7 [facility] Comment on above: Performed By: #### C DP, IPF #### [facility] [address] [place] [address] Telephone Messenger: Wenceslao Rose MD Basophils/100 WBC (Bld) 0 % Normal 0-2 [facility] Comment on above: Performed By: #### C DP, IPF #### [facility] [facility] [address] [place], [place] [id number] Telephone Messenger: Wenceslao Rose MD Eosinophils (Bld) [#/Vol] 0.13 10*3/uL Normal 0.0-0.4 [facility] Comment on above: Performed By: #### C DP, IPF #### [address] [address] Telephone Messenger: Wenceslao Rose MD Eosinophils/100 WBC (Bld) 2 % Normal 1-4 [facility] Comment on above: Performed By: #### C DP, IPF #### [address] [address] Telephone Messenger: Wenceslao Rose MD Immature granulocytes/100 WBC (Bld) 0 % Normal 0 [facility] Comment on above: Performed By: #### C DP, IPF #### [address] [address] Telephone Messenger: Wenceslao Rose MD Lymphocytes (Bld) [#/Vol] 0.82 10*3/uL Low 1.0-4.8 [facility] Comment on above: Performed By: #### C DP, IPF #### [address] [address] Telephone Messenger: Wenceslao Rose MD Lymphocytes/100 WBC (Bld) 13 % Low 24-44 [facility] Comment on above: Performed By: #### C DP, IPF #### [address] [address] Telephone Messenger: Wenceslao Rose MD Monocytes (Bld) [#/Vol] 0.88 10*3/uL High 0.1-0.8 [facility] Comment on above: Performed By: #### C DP, IPF #### [address] [address] Telephone Messenger: Wenceslao Rose MD Monocytes/100 WBC (Bld) 14 % High 1-7 [facility] Comment on above: Performed By: #### C DP, IPF #### [address] [address] Telephone Messenger: Wenceslao Rose MD Morphology Ck (Bld) [Interp] ANISOCYTOSIS PRESENT Normal [facility] Comment on above: Result Comment: MICR OCYTOSIS PRESENT Performed By: #### C DP, IPF #### [address] [address] Telephone Messenger: Wenceslao Rose MD Neutrophil (Seg) 71 % High 36-66 [facility] Comment on above: Performed By: #### C DP, IPF #### [address] [address] Telephone Messenger: Wenceslao Rose MD Erythrocyte distribution width (RBC) [Ratio] 22.2 % High 11.8-14.4 [facility] Comment on above: Performed By: #### C DP, IPF #### [address] [address] Telephone Messenger: Wenceslao Rose MD Hematocrit (Bld) [Volume fraction] 33.5 % Low 40.7-50.3 [facility] Comment on above: Performed By: #### C DP, IPF #### [address] [address] Telephone Messenger: Wenceslao Rose MD Hemoglobin (Bld) [Mass/Vol] 10.2 g/dL Low 13.0-17.0 [facility] Comment on above: Performed By: #### C DP, IPF #### [address] [address] Telephone Messenger: Wenceslao Rose MD MCH (RBC) [Entitic mass] 22.5 pg Low 25.2-33.5 [facility] Comment on above: Performed By: #### C DP, IPF #### [facility] [address] [place] [address] Telephone Messenger: Wenceslao Rose MD MCHC (RBC) [Mass/Vol] 30.4 g/dL Normal 28.4-34.8 [facility] Comment on above: Performed By: #### C DP, IPF #### [address] [address] Telephone Messenger: Wenceslao Rose MD MCV (RBC) [Entitic vol] 73.8 fL Low 82.6-102.9 [facility] Comment on above: Performed By: #### C DP, IPF #### [address] [address] Telephone Messenger: Wenceslao Rose MD NRBC Automated 0.0 per 100 WBC Normal 0.0 [facility] Comment on above: Performed By: #### C DP, IPF #### [address] [address] Telephone Messenger: Wenceslao Rose MD Platelet Count See Reflexed IPF Result Normal 138-453 [facility] Comment on above: Performed By: #### C DP, IPF #### [address] [address] Telephone Messenger: Wenceslao Rose MD RBC (Bld) [#/Vol] 4.54 10*6/uL Normal 4.21-5.77 [facility] Comment on above: Performed By: #### C DP, IPF #### [address] [address] Telephone Messenger: Wenceslao Rose MD WBC (Bld) [#/Vol] 6.3 10*3/uL Normal 3.5-11.3 [facility] Comment on above: Performed By: #### C DP, IPF #### [address] [address] Telephone Messenger: Wenceslao Rose MD Immature Platelet Fractionon 10-16-2022 Platelet, Fluorescence [address] [facility] Comment on above: ORDERED BY LAB Platelet, Immature Fraction 5.3 % 1.1 - 10.3 % [facility] Comment on above: ORDERED BY LAB [facility] Microscopic Urinalysison Casts UA 5 TO 10 HYALINE Refe rence range defined for non-centrifuged specimen. [facility] Epithelial Cells UA 2 TO 5 [facility] RBC clumps Auto (Urine sed) [#/Area] TOO NUMEROUS TO COUNT [facility] Comment on above: Reference range defi radha for non-centrifuged specimen. WBC, UA 50 TO 100 [facility] PLT, Immature Fract.on 10-16 Platelet, Fluoresc. 154 k/uL Normal 138-453 [facility] Comment on above: Result Comment: ORDE RED BY LAB Performed By: #### C DP, IPF #### [employer] [address] [place], [place] [id number] Telephone Messenger: Wenceslao Rose MD PLT, Immature Fract. 5.3 % Normal 1.1-10.3 [facility] Comment on above: Result Comment: ORDE RED BY LAB Performed By: #### C DP, IPF #### [employer] [address] [place], [place] [phone] Telephone Messenger: Wenceslao Rose MD PTon 10-16-2022 INR Coag (PPP) [Relative time] 1.2 {INR} Normal [facility] Comment on above: Result Comment: Therapeutic Range: Moderate Anticoagulant Intensity: INR = 2.0-3.0 High Anticoagulant Intensity: INR = 2.5-3.5 Performed By: #### P RCAL, BMPX, CRP, PT #### [employer] [address] [place] [address] Telephone Messenger: Wenceslao Rose MD PT Coag (PPP) [Time] 12.4 s High 9.1-12.3 [facility] Comment on above: Performed By: #### P RCAL, BMPX, CRP, PT #### [employer] [address] [place] [address] Telephone Messenger: Wenceslao Rose MD Procalcitoninon 10-16-2022 Procalcitonin 0.20 ng/mL High <0.09 [facility] Comment on above: Result Comment: Suspected Sepsis: <0.50 ng/mL Low likelihood of sepsis. 0.50-2.00 ng/mL Increased likelihood of sepsis. Antibiotics encouraged. >2.00 ng/mL High risk of sepsis/shock. Antibiotics strongly encouraged. Suspected Lower Resp Tract Infections: <0.24 ng/mL Low likelihood of bacterial infection. >0.24 ng/mL Increased likelihood of bacterial infection. Antibiotics encouraged. With successful antibiotic therapy, PCT levels should decrease rapidly. (Half-life of 24 to 36 hours.) Procalcitonin values from samples collected within the first 6 hours of systemic infection may still be low. Retesting may be indicated. Values from day 1 and day 4 can be entered into the Change in Procalcitonin Calculator (www.prauhs-rjh-egulrneclu.com) to determine the patient's Mortality Risk Prognosis In healthy neonates, plasma Procalcitonin (PCT) concentrations increase gradually after , reaching peak values at about 24 hours of age then decrease to normal values below 0.5 ng/mL by 48-72 hours of age. Performed By: #### M G, CBC, BMP #### [employer] [facility] [address] [place] [address] Telephone Messenger: Wenceslao Rose MD Interpretation and review of laboratory results Abnormal [facility] Procalcitonin [Mass/Vol] 0.2 ng/mL High NINF - 0.09 ng/mL [facility] Comment on above: Suspected Sepsis: <0.50 ng/mL Low likelihood of sepsis. 0.50-2.00 ng/mL Increased likelihood of sepsis. Antibiotics encouraged. >2.00 ng/mL High risk of sepsis/shock. Antibiotics strongly encouraged. Suspected Lower Resp Tract Infections: <0.24 ng/mL Low likelihood of bacterial infection. >0.24 ng/mL Increased likelihood of bacterial infection. Antibiotics encouraged. With successful antibiotic therapy, PCT levels should decrease rapidly. (Half-life of 24 to 36 hours.) Procalcitonin values from samples collected within the first 6 hours of systemic infection may still be low. Retesting may be indicated. Values from day 1 and day 4 can be entered into the Change in Procalcitonin Calculator (www.alkkvx-zym-gczvhboqmc.GENELINK) to determine the patient's Mortality Risk Prognosis In healthy neonates, plasma Procalcitonin (PCT) concentrations increase gradually after , reaching peak values at about 24 hours of age then decrease to normal values below 0.5 ng/mL by 48-72 hours of age. [facility] Protime-INRon 10-16-2022 INR Coag (PPP) [Relative time] 1.2 {INR} [facility] Comment on above: Therapeutic Range: Moderate Anticoagulant Intensity: INR = 2.0-3.0 High Anticoagulant Intensity: INR = 2.5-3.5 Interpretation and review of laboratory results Abnormal [facility] PT Coag (PPP) [Time] 12.4 s High [facility] UA w/Reflex Cultureon 2022 Bilirubin, SemiQt,Ur Negative Normal NEG [facility] Comment on above: Performed By: #### Mc G, CBC, BMP #### [facility] [address] [place] [phone] Telephone Messenger: Wenceslao Rose MD Blood, Urine LARGE Abnormal NEG [facility] Comment on above: Performed By: #### Mc G, CBC, BMP #### [employer] [facility] [place], [place] [phone] Telephone Messenger: Wenceslao Rose MD Clarity (U) Cloudy Abnormal CLEAR [facility] Comment on above: Performed By: #### Mc G, CBC, BMP #### [facility] [place], [place] [phone] Telephone Messenger: Wenceslao Rose MD Color (U) Yellow Normal YEL [facility] Comment on above: Performed By: #### Mc G, CBC, BMP #### [facility] [address] [place] [address] Telephone Messenger: Wenceslao Rose MD Glucose Ql (U) Negative Normal NEG [facility] Comment on above: Performed By: #### M G, CBC, BMP #### [address] [address] Telephone Messenger: Wenceslao Rose MD Ketones Ql (U) MODERATE Abnormal NEG [facility] Comment on above: Performed By: #### M G, CBC, BMP #### [address] [address] Telephone Messenger: Wenceslao Rose MD Leukocyte esterase Test strip Ql (U) SMALL Abnormal NEG [facility] Comment on above: Performed By: #### Mc G, CBC, BMP #### [address] [address] Telephone Messenger: Wenceslao Rose MD Nitrite,Ur Negative Normal NEG [facility] Comment on above: Performed By: #### Mc G, CBC, BMP #### [address] [address] Telephone Messenger: Wenceslao Rose MD PH,Ur 5.5 Normal 5.0-8.0 [facility] Comment on above: Performed By: #### Mc G, CBC, BMP #### [address] [address] Telephone Messenger: Wenceslao Rose MD Protein Ql (U) 2+ Abnormal NEG [facility] Comment on above: Performed By: #### Mc G, CBC, BMP #### [facility] [address] [place] [address] Telephone Messenger: Wenceslao Rose MD Spec. Paron,Ur 1.023 Normal 1.005-1.03 0 [facility] Comment on above: Performed By: #### Mc G, CBC, BMP #### [employer] [address] [place] [address] Telephone Messenger: Wenceslao Rose MD Urobilinogen,Ur Normal Normal NORM [facility] Comment on above: Performed By: #### M Hannah, CBC, BMP #### [employer] [facility] [place], [place] [phone] Telephone Messenger: Wenceslao Rose MD Urinalysis with Reflex to Cu ltureon 10-16-2022 Bilirubin Urine Negative NEGATIVE [facility] Hark Color, UA Yellow Yellow [facility] Glucose Auto test strip (U) [Mass/Vol] Negative NEGATIVE [facility] Interpretation and review of laboratory results Abnormal [facility] Ketones (U) [Mass/Vol] MODERATE Abnormal NEGATIVE [facility] Leukocyte esterase Auto test strip Ql (U) SMALL Abnormal NEGATIVE [facility] Nitrite Auto test strip Ql (U) Negative NEGATIVE [facility] Protein (U) [Mass/Vol] 5.5 mg/dL 5.0 - 8.0 [facility] Protein (U) [Mass/Vol] 2+ Abnormal NEGATIVE [facility] Specific Paron, UA 1.023 1.005 - 1.030 [facility] Turbidity UA Cloudy Abnormal Clear [facility] Urine Hgb LARGE Abnormal NEGATIVE [facility] Urobilinogen, Urine Normal Normal [facility] Urinalysis,Microon 3 Casts 5 TO 10 HYALINE Normal 0-8 [facility] Comment on above: Result Comment: Refe rence range defined for non-centrifuged specimen. Performed By: #### M G, CBC, BMP #### [employer] [address] [place] [phone] Telephone Messenger: Wenceslao Rose MD Epithelial cells LM Ql (Urine sed) 2 TO 5 Normal 0-5 [facility] Comment on above: Performed By: #### M G, CBC, BMP #### [employer] [address] [place] [phone] Telephone Messenger: Wenceslao Rose MD Urine RBC's TOO NUMEROUS TO COUNT Normal 0-4 [facility] Comment on above: Result Comment: Refe rence range defined for non-centrifuged specimen. Performed By: #### M G, CBC, BMP #### [facility] [address] [place] [address] Telephone Messenger: Wenceslao Rose MD Urine WBC's 50 TO 100 Normal 0-5 [facility] Comment on above: Performed By: #### M G, CBC, BMP #### [facility] [address] [place] [address] Telephone Messenger: Wenceslao Rose MD Tobacco Screening.on 023 Adult depression screening assessment No [facility] [employer] DO Work Phone: Fall risk assessment a) No falls within the last year [facility] [employer] DO Work Phone: Tobacco use status [facility] b) No [facility] [employer] DO Work Phone: Tumor Staging Formon 022 Tumor Staging Form [id number]:127 Normal [facility] URINALYSIS, REFLEX MICROSCOP ICon 05-06-2022 Bilirubin Ql (U) Negative Negative [facility] Clarity (Unsp spec) Turbid Abnormal Clear [facility] Color (U) Red Abnormal Yellow [facility] Glucose Test strip (U) [Mass/Vol] Negative Negative [facility] Hemoglobin Ql (U) 3+ Abnormal Negative [facility] Ketones Ql (U) Negative Negative [facility] Leukocyte esterase Test strip Ql (U) 75 Danilo/mL Abnormal Negative [facility] Nitrite Ql (U) Negative Negative [facility] pH (U) 7.0 [pH] 5.0 - 8.0 [facility] Protein (U) [Mass/Vol] 1+ Abnormal Negative Cl [facility] RBC LM.HPF (Urine sed) [#/Area] /[HPF] Abnormal 0-3 /HPF [facility] Specific gravity (U) [Rel density] 1.008 1.005 - 1.030 [facility] Urobilinogen Ql (U) Negative Negative [facility] WBC LM.HPF (Urine sed) [#/Area] 11-25 /HPF Abnormal 0-5 /HPF [facility] Screenson 03-30-2022 Screens [id number]:127 Normal [facility] Ambulatory Visit Summaryon 0 03-29-2022 Ambulatory Visit Summary TAURUS GARCIA :1945 Visit Date:03/29/2022 Ambulatory Visit Instructions Your Diagnosis Malignant neoplasm of lateral wall of bladder BPH (benign prostatic hyperplasia) Gross hematuria Tests Performed CT Abdomen/Pelvis w/ Contrast -- Results Pending -- Please visit your patient portal for your results or contact your primary care physician. Your Care Team Attending Physician - Autumn Molina MD, Yoko Hair Primary Care Physician - SARBJIT BRIDGES, KOMAL Hamlin This Is Your Medications List Contact prescribing physician if questions or concerns Non-Formulary Medication (Aller-itin) apixaban (Eliquis 5 mg oral tablet) baclofen (baclofen 10 mg Tab) furosemide (furosemide 20 mg Tab) gabapentin (gabapentin 300 mg Cap) hydrALAZINE hydrochlorothiazide-triamt erene (hydrochlorothiazide-triam terene 25 mg-37.5 mg Cap) lisinopril (lisinopril 20 mg Tab) multivitamin (Multi Vitamins oral tablet) nebivolol (nebivolol 10 mg Tab) omega-3 polyunsaturated fatty acids (Fish Oil) potassium chloride (potassium chloride 10 mEq Cap-ER) predniSONE (predniSONE 10 mg Tab) pyridostigmine (pyridostigmine 60 mg Tab) simvastatin (simvastatin 40 mg Tab) Procedures Performed Cystoscopy and transurethral resection of bladder tumor (03/03/2022), Cystoscopy (12/27/2021), Transurethral water vapor ablation of prostate (02/16/2017), Cardiac catheterization, CE - Cataract extraction, Entire neck. Discharge Vitals Heart Rate (Peripheral) 108 Respiratory Rate 16 Blood Pressure 126/80 Height 172.0 cm Height 172 cm Weight 150.9 kg Weight 150.9 kg BMI 51.01 What to do next You Need to Schedule the Following Appointments Follow Up with Autumn Molina MD, Yoko Hair, URO When: Comments: schedule Cysto/TURBT and CT Where: [facility] [address], [place] [address] [phone] Medications What How Much When Instructions Unchanged apixaban (Eliquis 5 mg oral tablet) 1 Tablets By Mouth 2 times a day Contact prescribing physician if questions or concerns Unchanged baclofen (baclofen 10 mg Tab) 1 Tablets By Mouth 3 times a day Contact prescribing physician if questions or concerns Unchanged furosemide (furosemide 20 mg Tab) 1 Tablets By Mouth Every day Contact prescribing physician if questions or concerns Unchanged gabapentin (gabapentin 300 mg Cap) 1 Capsules By Mouth Every day Contact prescribing physician if questions or concerns Unchanged hydrALAZINE 50 Milligram By Mouth 2 times a day Contact prescribing physician if questions or concerns Unchanged hydrochlorothiazide-triamt erene (hydrochlorothiazide-triam terene 25 mg-37.5 mg Cap) 1 Capsules By Mouth Every day Contact prescribing physician if questions or concerns Unchanged lisinopril (lisinopril 20 mg Tab) 1 Tablets By Mouth Every day Contact prescribing physician if questions or concerns Unchanged multivitamin (Multi Vitamins oral tablet) 1 Tablets By Mouth Every day Contact prescribing physician if questions or concerns Unchanged nebivolol (nebivolol 10 mg Tab) 1 Tablets By Mouth Every day Contact prescribing physician if questions or concerns Unchanged Non-Formulary Medication (Aller-itin) 1 tab By Mouth Every day allergies Contact prescribing physician if questions or concerns Unchanged omega-3 polyunsaturated fatty acids (Fish Oil) 1,200 Milligram By Mouth 2 times a day Contact prescribing physician if questions or concerns Unchanged potassium chloride (potassium chloride 10 mEq Cap-ER) 1 Capsules By Mouth Every day Contact prescribing physician if questions or concerns Unchanged predniSONE (predniSONE 10 mg Tab) 1 Tablets By Mouth Every day Contact prescribing physician if questions or concerns Unchanged pyridostigmine (pyridostigmine 60 mg Tab) 1 Tablets By Mouth 4 times a day Contact prescribing physician if questions or concerns Unchanged simvastatin (simvastatin 40 mg Tab) 1 Tablets By Mouth Once a day (at bedtime) Contact prescribing physician if questions or concerns Allergies No Known Medication Allergies Problems Ongoing - Any problem that you are currently receiving treatment for. Bladder mass BPH (benign prostatic hyperplasia) Calcaneal spur Gross hematuria Hypercholesteremia Hypertension Impaired glucose tolerance test Lumbosacral spondylosis without myelopathy Macular edema Malignant neoplasm of lateral wall of bladder Myasthenia gravis Obesity Obstructive apnea Obstructive sleep apnea, adult Pulmonary embolism Radiculopathy Urge incontinence [facility] Patient Educationon 03-29-20 Patient Education Oncology Transurethral Resection of Bladder Tumor Transurethral resection of a bladder tumor is the removal (resection) of a cancerous growth (tumor) on the inside wall of the bladder. The bladder is the organ that holds urine. The tumor is removed through the tube that carries urine out of the body (urethra). In a transurethral resection, a thin telescope with a light, a tiny camera, and an electric cutting edge (resectoscope) is passed through the urethra. In men, the opening of the urethra is at the end of the penis. In women, it is just above the opening of the vagina. Tell a health care provider about: ? Any allergies you have. ? All medicines you are taking, including vitamins, herbs, eye drops, creams, and hwep-ojl-ixndhcg medicines. ? Any problems you or family members have had with anesthetic medicines. ? Any blood disorders you have. ? Any surgeries you have had. ? Any medical conditions you have. ? Any recent urinary tract infections you have had. ? Whether you are or may be . What are the risks? Generally, this is a safe procedure. However, problems may occur, including: ? Infection. ? Bleeding. ? Allergic reactions to medicines. ? Damage to nearby structures or organs, such as: ? The urethra. ? The tubes that drain urine from the kidneys into the bladder (ureters). ? Pain and burning during urination. ? Difficulty urinating due to partial blockage of the urethra. ? Inability to urinate (urinary retention). What happens before the procedure? Staying hydrated Follow instructions from your health care provider about hydration, which may include: ? Up to 2 hours before the procedure ? you may continue to drink clear liquids, such as water, clear fruit juice, black coffee, and plain tea. Eating and drinking restrictions Follow instructions from your health care provider about eating and drinking, which may include: ? 8 hours before the procedure ? stop eating heavy meals or foods, such as meat, fried foods, or fatty foods. ? 6 hours before the procedure ? stop eating light meals or foods, such as toast or cereal. ? 6 hours before the procedure ? stop drinking milk or drinks that contain milk. ? 2 hours before the procedure ? stop drinking clear liquids. Medicines Ask your health care provider about: ? Changing or stopping your regular medicines. This is especially important if you are taking diabetes medicines or blood thinners. ? Taking medicines such as aspirin and ibuprofen. These medicines can thin your blood. Do not take these medicines unless your health care provider tells you to take them. ? Taking oljw-vdd-hymmvgy medicines, vitamins, herbs, and supplements. Tests You may have exams or tests, including: ? Physical exam. ? Blood tests. ? Urine tests. ? Electrocardiogram (ECG). This test measures the electrical activity of the heart. General instructions ? Plan to have someone take you home from the hospital or clinic. ? Ask your health care provider how your surgical site will be marked or identified. ? Ask your health care provider what steps will be taken to help prevent infection. These may include: ? Washing skin with a germ-killing soap. ? Taking antibiotic medicine. What happens during the procedure? ? An IV will be inserted into one of your veins. ? You will be given one or more of the following: ? A medicine to help you relax (sedative). ? A medicine to make you fall asleep (general anesthetic). ? A medicine that is injected into your spine to numb the area below and slightly above the injection site (spinal anesthetic). ? Your legs will be placed in foot rests (stirrups) so that your legs are apart and your knees are bent. ? The resectoscope will be passed through your urethra and into your bladder. ? The part of your bladder that is affected by the tumor will be resected using the cutting edge of the resectoscope. ? The resectoscope will be removed. ? A thin, flexible tube (catheter) will be passed through your urethra and into your bladder. The catheter will drain urine into a bag outside of your body. ? Fluid may be passed through the catheter to keep the catheter open. The procedure may vary among health care providers and hospitals. What happens after the procedure? ? Your blood pressure, heart rate, breathing rate, and blood oxygen level will be monitored until you leave the hospital or clinic. ? You may continue to receive fluids and medicines through an IV. ? You will have some pain. You will be given pain medicine to relieve pain. ? You will have a catheter to drain your urine. ? You will have blood in your urine. Your catheter may be kept in until your urine is clear. ? The amount of urine will be monitored. If necessary, your bladder may be rinsed out (irrigated) by passing fluid through your catheter. ? You will be encouraged to walk around (more content not included)... Normal [facility] Urology Office/Clinic Noteon 03-29-2022 Urology Office/Clinic Note Chief Complaint Follow up to Cysto/Mitomycin HPI Staff Taurus is here today for a 1 month follow up from a Cysto with transurethral resection of bladder tumor instillation of Mitomycin-C on 03/03/22. 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 Previous DX: Malignant neoplasm of lateral wall of bladder, BPH, urge incontinence, gross hematuria. S/P TURBT done on 01/12/22. Dysuria: _Denies Incomplete bladder emptying: _feels like he is emptying okay Hematuria: _yes Frequency: _yes Urgency: _Denies Nocturia: _2x Stream: _weak stream Leaking: _occ Post void dripping: _occ Wearing pads/ Depends: _Denies Urge incontinence: _Denies Stress incontinence: _Denies Incontinence without Sensory Awareness: _Denies Abdominal pain: _Denies Flank pain: _Denies Sexual complaints: _ History of Present Illness Tests reviewed: reviewed UA I have reviewed the previous health record information and history for this patient from Dr. Rizvi. I have reviewed and verified the staff HPI to be accurate for this encounter. There have been no associated fever, chills, flank pain, or blood in the urine. Denies any urinary infections since last encounter. Review of Systems PHQ Score Initial Depression Screen Score: 0 ROS - Provider Constitutional: denies weight loss, denies hot flashes. Eyes: denies eye problems. Gastrointestinal: denies nausea, denies vomiting. Cardiovascular: denies chest pain or angina. Integumentary: no dryness Musculoskeletal: denies musculoskeletal symptoms. ENMT: denies otolaryngeal symptoms. Respiratory: no shortness of breath. Heme/Lymph: denies easy bleeding tendency, denies easy bruising tendency. Psychiatric: no confusion, no anxiety. Genitourinary: denies dysuria, denies hematuria, denies discharge, denies urinary frequency, denies urinary hesitancy, denies nocturia, denies incontinence, denies genital sores, denies decreased libido, and denies erectile dysfunction. Physical Exam Vitals & Measurements HR: 108(Peripheral) RR: 16 BP: 126/80 HT: 172.0 cm HT: 172 cm WT: 150.9 kg WT: 150.9 kg BMI: 51.01 General Appearance: alert, no distress, well nourished, well developed male. Head: normocephalic . Eyes: normal orbit and globe. ENMT: normal examination of external ears. Chest: Lungs CTA, respirations non labored. Cardiovascular: regular rate and rhythm. Abdomen: soft, non distended, no tenderness, no mass or organomegaly, no hernia. Abdomen is obese. No distention rebound or guarding., No CVA tenderness. Genitourinary: normal scrotum, normal testes, normal urethra, normal epididymis, normal vas deferens/spermatic cord. Flank Pain: none. Bladder: nonpalpable. Penis: normal shaft, normal glans. Prostate: normal prostate, estimated weight 35 gms, no hard nodule observed. Lymph Nodes: unremarkable palpation of the cervical area. Skin: warm, dry, no bruising. Psychiatric: cooperative, affect appropriate for age, normal judgement, euthymic mood. 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 Status post TURBT with Mitomycin-C instillation on 03/03/2022. We reviewed the pathology report today in detail. I discussed treatment options including cystectomy with urinary diversion, external beam radiation therapy, proceeding with a repeat cystoscopy and transurethral resection and for Mitomycin-C instillation. As well as even chemotherapy or combination therapy. Present patient states he wants to proceed with elective resection of bladder tumor and Mitomycin-C instillation. I informed patient that bladder tumors difficult to resect. We will be willing to try 1 more resection and if that does not work we will have to either consider radiation therapy or possible cystectomy. He is not at all interested in a cystectomy and states that he would not proceed with that route. Patient understands that high-grade urothelial carcinoma can lead to . He is also aware of the potential morbidity associated with cystectomy, radiation therapy, chemotherapy. I did review the CT scan from November showing no obvious evidence of metastatic disease. We will plan another CT scan prior to his next transurethral resection which hopefully will be in end of March or beginning of April of this year. 1. Malignant neoplasm of lateral wall of bladder (C67.2: Malignant neoplasm of lateral wall of bladder) S/p TURBT done 01/12/2022. S/p Cysto/TURBT w/ Mitomycin-C installation done 03/03/22. Pathology Report shows high grade papillary urothelial carcinoma with invading lamina propria. The pathology report was reviewed with the patient in detail today. The report confirms evidence of malignancy. This was discussed with the patient and all questions were answered in terms the patient could understand completely, along with the implications. We will (more content not included)... Normal [facility] Comment on above: Result Comment: Elec tronically Signed By: Autumn Molina MD, Yoko Hair\.br\Date and Time Signed: 03/29/22 12:04 EDT\.br\Electronically Co-Signed By: Callie Nguyen\.br\Date and Time Co-Signed: 03/29/22 11:57 EDT Progress Note-Physicianon Progress Note-Physician Patient: TAURUS GARCIA Age: 76 years Sex: Male : 1945 Associated Diagnoses: None Author: Jhonny Fuentes Jr, DO Preoperative Information Time patient last ate or drank:=== (npo 8 hours) Anesthesia history: Patient history: No prior anesthesia problems. Re-evaluation prior to induction: Completed, Initial evaluation reviewed. Review of Systems Respiratory: No shortness of breath. Cardiovascular: No chest pain. Hematology/Lymphatics: No bruising tendency, No bleeding tendency. Health Status Allergies: Allergic Reactions (All) No Known Medication Allergies Current medications: (Selected) Documented Medications Documented Aller-itin: Aller-itin, 1 tab, Oral, Daily, allergies Eliquis 5 mg oral tablet: 5 mg = 1 tab(s), Oral, BID, Blood Thinner Fish Oil: 1,200 mg, Oral, BID, Prophylaxis Multi Vitamins oral tablet: 1 tab(s), Oral, Daily, Prophylaxis baclofen 10 mg Tab: 10 mg = 1 tab(s), Oral, TID, Arthritis furosemide 20 mg Tab: 20 mg = 1 tab(s), Oral, Daily, diuretic/water pill gabapentin 300 mg Cap: 300 mg = 1 cap(s), Oral, Daily hydrALAZINE: 50 mg, Oral, BID, High blood pressure hydrochlorothiazide-triamt erene 25 mg-37.5 mg Cap: 1 cap(s), Oral, Daily, High blood pressure lisinopril 20 mg Tab: 20 mg = 1 tab(s), Oral, Daily, High blood pressure nebivolol 10 mg Tab: 10 mg = 1 tab(s), Oral, Daily, High blood pressure potassium chloride 10 mEq Cap-ER: 10 mEq = 1 cap(s), Oral, Daily, Prophylaxis predniSONE 10 mg Tab: 10 mg = 1 tab(s), Oral, Daily, Inflammation pyridostigmine 60 mg Tab: 60 mg = 1 tab(s), Oral, QID simvastatin 40 mg Tab: 40 mg = 1 tab(s), Oral, Once a day (at bedtime), High cholesterol Problem list: All Problems Impaired glucose tolerance test / SNOMED CT 805278284 / Confirmed BPH (benign prostatic hyperplasia) / SNOMED CT 801513252 / Confirmed Calcaneal spur / SNOMED CT 27105720 / Confirmed Gross hematuria / SNOMED CT 384108806 / Confirmed Hypercholesteremia / SNOMED CT 19548892 / Confirmed Hypertension / SNOMED CT 4166810891 / Confirmed Lumbosacral spondylosis without myelopathy / SNOMED CT 90464283 / Confirmed Macular edema / SNOMED CT 41538392 / Confirmed Bladder mass / SNOMED CT 5935560374 / Confirmed Myasthenia gravis / SNOMED CT 109477930 / Confirmed Radiculopathy / SNOMED CT 136151055 / Confirmed Obesity / SNOMED CT 8037255024 / Confirmed Obstructive sleep apnea, adult / SNOMED CT 6569050014 / Confirmed Obstructive apnea / SNOMED CT 152833736 / Confirmed Pulmonary embolism / SNOMED CT 08342981 / Confirmed Histories Past Medical History: No active or resolved past medical history items have been selected or recorded. Family History: Cancer Mother Heart disease Father Procedure history: Cystoscopy and transurethral resection of bladder ([id number]) on 03/03/2022 at 76 Years. Cystoscopy ([id number]) on 12/27/2021 at 76 Years. Transurethral water vapor ablation of prostate ([id number]) on 02/16/2017 at 71 Years. CE - Cataract extraction ([id number]). Cardiac catheterization ([id number]). Neck Surgery ([id number]). Comments: 02/17/2022 14:13 EDT - Davina ROMERO, Marina Friedman 2017 Social History Social & Psychosocial Habits Alcohol 12/07/2021 Risk Assessment: Low Risk 02/17/2022 Use: Current Type: Beer Frequency: 1-2 times per year Substance Abuse 02/17/2022 Risk Assessment: Denies Substance Abuse Tobacco 02/01/2022 Tobacco Use: Never (less than 100 in l Smokeless tobacco use: Never 02/17/2022 Risk Assessment: Denies Tobacco Use . Physical Examination VS/Measurements Respiratory: Lungs are clear to auscultation. Cardiovascular: Normal rate, Regular rhythm. Review / Management Results review Interpretation of Outside Results Chest x-ray results Radiology results ECG interpretation Condition Plan [place] [employer] (ASA) physical status classification: Class III. Anesthetic Preoperative Plan Anesthesia: General. . Anesthetic plan, risks, benefits, and alternatives discussed with the patient and/or family. Risks discussed: nausea, vomiting, headache, sore throat, dental injury, serious complications. Patient verbalized understanding. Communication: face to face with (patient 5 minutes, Pt educated on the importance of smoking cessation.). Normal [facility] Comment on above: Result Comment: Elec tronically Signed By: Jhonny Fuentes Jr, DO\.rubi\Date and Time Signed: 03/23/22 12:18 EDT Coding Summary.on 03-14-2022 Coding Summary. [id number] Gh0bWw +PGhlYWQ+JO9KMFTrI87lvXVqf W9JU7yVHV8GPXFXLBDUWB4FVL2 jtXH2PYtiX4BttjSx FdztqZOzWT27XHu4GSM5mIccUY fsnB1vqOEzQ6d2YgAlZW27aI58 APayPHXhRoL3WzZqndqnyZMp K8rdBbErfUKfFns+PHRhYmxlIH nqRNLjRFexBEQlNoUvoFwwNJ6d Cj2eFNQlZWJwvRkpyFHfNbBo f0duQFOgQHteRV4zwVdeK2HvhU E0LVFex2t5Rp39wWV+PHRkIHN0 iIflLUxma823WxGxn6brWBH8 tJLoOLsjTDU9K56qt6J1QKIeGX DoSZK6lOS7dF4wzBkbtrkcX8Yc kLAaYvG7XTJ7nFGxfQ3ubFgp wahufA7dKzy+P77UZC8ASRQNSD 1HDqe1Y6YiIgpyfEB+VF88WFGs YZ51eUHqmFUcv2bnsAf8IwZs HYEkBYJ7hXgnURjbg1MfCMQxL6 5qqRVss2L3IYVzcSbveHDoNnXn sCO8dT8bVDvgjptdf3etllae Zfjrr8pinr37fI78V60nTHoqUH ShUOY7UKClBPGaiSsons5jsA8v Ii8+DXuhq3cic1odiKi4IpMj DIShlrGgnNhqORA7y2CvOm24I6 XsbBiev7PvJvf6ha42jTJez8G1 vCQ6SEsfFCBjcA6bAGlnGjY3 TKYbWcFukZ17pKYwYXaiRl3okN cqjOcuWU8cBHBejhpgWMMsbF0v JRUxfIXvmDpfPK9zUGKkdlcv k123RnUfJHF5IIXdrJPwT7WooS 2uHfZvFALfYTPxU3RbmRTuWWfv D157DUbnRgU2GXWurmKgH8Sf XHVwfEcyHhQ1p7P5Bt4De8Jaiv bgHSK2EKogLNR3EbZ5BsRcKiV4 N0QrFdl2UQXduVdaRB2rV3Ul ZOFfrthgbbvzcER9AFAgKFVkgM 68fOQqSRjzSe6oo1I8v943NSAk IAKzkX71Rk3gjSnvCWPyhZWX jV2plgtbp4qjyeodOcAwAWTwZE v6PHb5AYWchGrjWdZqIIY4QwT3 NOJ5dDLwjA3dfLsooiwwtO0g Oyc+F87jsQ0yYLA8BAX0hlukWZ EcflZkNR27PG10K5MnHxoxfWTy bGU+IROeqiTptSmrJQ2uIwWb p2cno0YbXAzbE3UoAGXvXGrwGh b8YANcZAK9cXV5pV7sAJVrFRlr d0U1eOM4D0LpygGnvm2rz2oc BDNcTOzsG63meMJyk8Y7MZNrzE Q7FIWvvDujEqUpmR10Cms+PGNv kOhsu6DpQxmfy3jjx1udwZx3 RvIyJUHtkhRwcThfPUH6r4PqDu 37Y13hPDdfIMCxMSYnEYWdKGCk bMjaez5edM3gSa7+PGNvbCB3 pOY7rR8dODDxThF1GQycI208Vo PpsZHxBucoj3jhb9rlvUh3GfHn LMQjyfSypBjcKIB3u0PwPi57 Y30gSWuhJWYnSZMfFNHxTEJtyW siaw4csL4bZj3+JB5gf4xazu66 wX27pNN+TZKyXMI5xVpmRZss NHXyzV1nFZyaBlX1UOPnDvCyeO 94oIXjNSqvWt6jqLiwbUpxYA3s ZEQgxwkkd206KqYtl6zhPAVo nOIlAGxyEEX8W26hy8G4JSRnKR QqPQR5kJW0iZ7kbKbdbdbzgFUu xNsixnQvhOmsORjpNOzfJ970 IHRvcDsnPlBhdGllbnQgTmFtZT g9H6ZpHfi3AKQqcKcePO9qeQYn MCoqMj1hgWacoBmhKK2fMMJv qizaf792DhZyo0hdFENdxAMgCU quGWA7U69di6V9IXGgGZWrPUG2 pYS6cC7fxXcxxnurfLKerPjg lsZmiFxlVBieSWcsA547XQGeaK oxWiQajeHzLGJxiGV3CI41XP52 mNFnk8B3lCU6A3JoOEAmnoxr krwfpTD4MAWuWBPvqB06Vr6hmT gtWg4rBUZqZOL3SMUzdZErK1Sx fE1eUbFsBAGjENIzH6OvoSRb CYmkM914QJdxErE6YZWjhyBaM7 UzZEFdfBokXmA6l2K4Wz5YL9C7 KW09NO93jLWky3W1wJO2L4Pw XEDfunilxiykrVI6CQWeKQGhrE 88Ia3uyNidKa7dQGVhQDA4ZZAq bGVeT4IxbG5tHkQjOEPrMZYh T4LzyYEjGGkjF237CJorYiS4LN DzyeWuL9EbLSKrpBmfUaI2h9Q7 By2KRQg5QH56ZG68aFOrc9U2 gDL0Q5HiYQGpxlfybirfeMH3ED UsPPCqnY55Io3qjMxoOi0gCAPm XVO8JHVovQWiF0CguP4oYaRd HHJgHKRhV8UdaNLiGStwC343TC bzNhA2SLOrgzGeO1QfTUTngNgc PnI1g8W6Jd1UTHEbTK97DAJ0 lYS4DO74IS69A8YdDiyyiFRgqG U+PHRhYmxlIHdpZHRoPScxMDAl RlArdVgxIK2wOb8jLPFhQDHu aEhbqNJwUgFsu2kdKNIhBLgtAT 8onHviR9PslKV6NSYlb8i1Wg13 J45gI6AsqUU+IRXobPW6tHN8 zI2oGfPpQnS8AOdhI889AmHewV JgApojg9apn8jjeNx9YgM6EUXu ciXmsUvbEKH4u5DtMu49S15m IHdpZHRoPSIxNSUiIHZhbGlnbj 2gxK3jYt4+LPFfiUY6zJJ8kA9q CzEuNiF8CTviT992JuUylNSw Inwwj5bvv3kllOs3DhOyUZDtwf KsaQueZTA6n3MxFz31R5VqdVop o1DjCsl2si08zNJsw4F5fVL1 X5DyWGQsskzsjJFjiNdrBQ1cKV BkeeppAIVtnW4mPXByP1x2LfDe MhN7JXcxU2BkwrO6LIJdzBCd WYhcHEX6N73jy9D4CFAzUUEyBW G7fTO7uL6lyBzqbkuspTCnfWae rpAllVkcTXyxPTsxQ832RGVg pIevETWqrR2cOQZtsSBhgRzbAQ 9eATPkzkjfXrGUG00QBfyqB3qT ZhtZAlPSUR01CI70gXOal6I6 fBL9E6ApZMArzkudvobxeZT5CU IgTRYgkL60xTOqYHgbHl8lg5O2 j773GAGoSGWarS07Cg4hfRjn OROkmJBAlN9tdrijk6xkrhqfGy QiRWKxYBh4ZWs8KKIbrCfnRuZe BAN7EoV1NWG9oYRotY4mhKvu rmoeqA5oWoo+MBTjYHAhDCf7ER wvdGQ+KDBqOUV9kVgoIShzMQAr kB5pNCOuW5x1NbTwDrO2GSkq T0UoTDKzegrtLc12sS1lVxSwCy K4TGocV4UtvmL7GUVedYDeWHdw AXC7Q00dl7L9TSQbTABbVON6 yUT2cY8ykVkxpojsdUPxwRqcgm CaoUesKYdrNXeqE105VVElzWaj Gkh7ATkrJDRySA48XP23uWKz g8N9tOR8A5VvSAQcylonkqprjN G2KNHlRDCdbH41vLOaFQijSc0b x4Z4o295VHZgFQWnoW07Pd0e lRobSTQgkIINxO2gyfkuk9zzbq ttQqKmAUPiLYa2WUu9UZXzuHqd KkPyUPJ7EsP6BSK1rGXtvB1q hTmmpsxykA9sJxb+TWFsZTwvdG Q+UWRiIAL0lCpxEWxyARStrL0a PJZhD5x1MqQaTkR0NTycM0Lb WBHgqgeeHi07oZ0yMqNvXbL2JK gnW7WtfqI3EOVzdMWnIHabIFQ4 W35cn4N8TKSrWTXjKIG5rJT8 kS3lzQtxlzfvxSCshYxixlKezF hoFCvzMHkzP418TUQzmTupIkWj GvBgEJLrwcbnJ3TdWZQBMLom L3RzD2PppNmssLK+UJ98gf20J5 UaSkhuBgc6PHPvFGU5mRC1xK0k RDMtXOflb9H7cJJ2X5ElipDl ux5ru6ajEUOtFLfuV54smRGbj4 C6TXCuoMO0HFOeqEtpDkWytD56 Oyc+RXJnmQkkm8FhDplea5qz i6xxiAg9YcRoSYHcwwWybReyNJ K6l6IcKl94R31mUFbdBNCeNNWi MLAqMSPybEatvf9dbW7qOq2+ QUVyoZX4dUY0hM4wApJlQjO9EB nsP477DqIqpLRwBlvrm3wal9zm pGy4KgNlEPVwboQphEpiAAM5 k2QmCt93I5XauTntf4HlWxd8tt 59qRMye7I8hXB5Y7WkPZAzbpdd pGQkpBucCV0nFFRixsscSJIh tX2rICXwL6f0AlHrCkZ9NStbY0 YhwkC5AYCviMJnAHKitBLFgA6o txjrx9viaayhVuXpIQBwFNc9 GPy9HRXhrYvmMlVsEJJ8RlO1OD Q3aFEewT1kfUndqsxyqJ2qAtr+ EOa3l2thqRBbEN2tfXZ9QO43 TZ51xXMlf1W4wWI0V5IrJFHjnj xvakumcIM1AMGwMKNehU15Fi3b iVqhGj6yHGFeQHX3APWznAOv K9ZfdR7zAhJeDOZwLQQyP7IqeN BaGPvgT588LAdhTvQ2FNKuawXu Q1MlBKTegCjiWwH2d5R1Ia4I WZ27VY80JS96tKVrj5E5hRU3G5 MaEYOdqjmrdatslDE9LCVmBXLh mK01Vk1mnPgtLr1qOMSkRMT4 AJExyUJxP0RezV5xErQzJXRyMZ BpY2WskMRzDEdnX555XOzsGtT3 VUWftdDrD9RfJUPeiNvnXtP3 a6T4Oc2HOm09IP05KX39aBGwm6 K7dFE2Z2FcPLQmeekaysrfgJM0 FPXhUYPfcS83Py3hyUfiXp9l PMJwOAH6ZPSskRSvT3FuqK8oBx RhUZPxNDJmS3PxaKSqTTvjW941 HKnoSgX5XFSvdvGsF2AvSQZo sIvyBtA7l0X8Bi5YBSssotz2T6 RkPjwvdHI+ZA21KLRjAX16xQHt zLTet2rxaBv8BrNcQRIjTCJ1 eWxl (more content not included)... Normal [facility] Progress Note-Physicianon Progress Note-Physician Patient: TAURUS GARCIA Age: 76 years Sex: Male : 1945 Associated Diagnoses: None Author: Jhonny Fuentes Jr, DO Postoperative Information Post Operative Note: Post Anesthesia Care Unit. Anesthetic utilized: General. Health Status Allergies: Allergic Reactions (Selected) No Known Medication Allergies Problem list: All Problems Impaired glucose tolerance test / SNOMED CT 015826761 / Confirmed BPH (benign prostatic hyperplasia) / SNOMED CT 980279997 / Confirmed Calcaneal spur / SNOMED CT 59581107 / Confirmed Gross hematuria / SNOMED CT 009699493 / Confirmed Hypercholesteremia / SNOMED CT 51204580 / Confirmed Hypertension / SNOMED CT 7138057073 / Confirmed Lumbosacral spondylosis without myelopathy / SNOMED CT 35700227 / Confirmed Macular edema / SNOMED CT 44136970 / Confirmed Bladder mass / SNOMED CT 8312847785 / Confirmed Myasthenia gravis / SNOMED CT 071955988 / Confirmed Radiculopathy / SNOMED CT 347578976 / Confirmed Obesity / SNOMED CT 5147184690 / Confirmed Obstructive sleep apnea, adult / SNOMED CT 6620054986 / Confirmed Obstructive apnea / SNOMED CT 538720739 / Confirmed Pulmonary embolism / SNOMED CT 90433695 / Confirmed Physical Examination Vital Signs 03/03/2022 12:59 EDT Temperature Oral 36.6 DegC Heart Rate Monitored 62 bpm Respiratory Rate 16 br/min Systolic Blood Pressure 100 mmHg Diastolic Blood Pressure 60 mmHg Blood Pressure Location Right arm Mean Arterial Pressure, Monitered 74 mmHg SpO2 97 % BP/Pulse Patient Position Sitting 03/03/2022 12:04 EDT Temperature Temporal Artery 36.7 DegC Heart Rate Monitored 63 bpm Systolic Blood Pressure 106 mmHg Diastolic Blood Pressure 60 mmHg Mean Arterial Pressure, Monitered 76 mmHg SpO2 94 % 03/03/2022 11:50 EDT Temperature Temporal Artery 36.4 DegC Heart Rate Monitored 58 bpm LOW Respiratory Rate Monitored 10 br/min Systolic Blood Pressure 141 mmHg HI Diastolic Blood Pressure 70 mmHg Blood Pressure Location Left arm SpO2 95 % 03/03/2022 11:40 EDT Heart Rate Monitored 63 bpm Respiratory Rate Monitored 17 br/min Systolic Blood Pressure 145 mmHg HI Diastolic Blood Pressure 68 mmHg Blood Pressure Location Left arm SpO2 92 % 03/03/2022 11:35 EDT Heart Rate Monitored 65 bpm Respiratory Rate Monitored 11 br/min Systolic Blood Pressure 152 mmHg HI Diastolic Blood Pressure 69 mmHg Blood Pressure Location Left arm SpO2 94 % 03/03/2022 11:30 EDT Heart Rate Monitored 60 bpm Respiratory Rate Monitored 15 br/min Systolic Blood Pressure 141 mmHg HI Diastolic Blood Pressure 77 mmHg Blood Pressure Location Left arm SpO2 98 % 03/03/2022 11:25 EDT Temperature Temporal Artery 36.2 DegC LOW Heart Rate Monitored 61 bpm Respiratory Rate Monitored 28 br/min Systolic Blood Pressure 129 mmHg Diastolic Blood Pressure 75 mmHg Blood Pressure Location Left arm SpO2 99 % 03/03/2022 11:20 EDT Heart Rate Monitored 64 bpm bpm Respiratory Rate 26 br/min br/min SpO2 99 % % 03/03/2022 11:15 EDT Heart Rate Monitored 63 bpm bpm Respiratory Rate 19 br/min br/min Systolic Blood Pressure 128 mmHg mmHg Diastolic Blood Pressure 68 mmHg mmHg SpO2 99 % % 03/03/2022 11:10 EDT Heart Rate Monitored 62 bpm bpm Respiratory Rate 20 br/min br/min Systolic Blood Pressure 123 mmHg mmHg Diastolic Blood Pressure 54 mmHg mmHg SpO2 99 % % 03/03/2022 11:05 EDT Heart Rate Monitored 61 bpm bpm Respiratory Rate 18 br/min br/min Systolic Blood Pressure 114 mmHg mmHg Diastolic Blood Pressure 54 mmHg mmHg SpO2 99 % % 03/03/2022 11:00 EDT Heart Rate Monitored 55 bpm bpm Respiratory Rate 16 br/min br/min Systolic Blood Pressure 106 mmHg mmHg Diastolic Blood Pressure 52 mmHg mmHg SpO2 99 % % 03/03/2022 10:55 EDT Heart Rate Monitored 64 bpm bpm Respiratory Rate 17 br/min br/min Systolic Blood Pressure 123 mmHg mmHg Diastolic Blood Pressure 56 mmHg mmHg SpO2 99 % % 03/03/2022 10:50 EDT Heart Rate Monitored 63 bpm bpm Respiratory Rate 18 br/min br/min Systolic Blood Pressure 121 mmHg mmHg Diastolic Blood Pressure 59 mmHg mmHg SpO2 99 % % 03/03/2022 10:45 EDT Heart Rate Monitored 63 bpm bpm Respiratory Rate 16 br/min br/min Systolic Blood Pressure 129 mmHg mmHg Diastolic Blood Pressure 53 mmHg mmHg SpO2 99 % % 03/03/2022 10:40 EDT Heart Rate Monitored 65 bpm bpm Respiratory Rate 18 br/min br/min Systolic Blood Pressure 124 mmHg mmHg Diastolic Blood Pressure 61 mmHg mmHg SpO2 99 % % 03/03/2022 10:35 EDT Heart Rate Monitored 56 bpm bpm Respiratory Rate 14 br/min br/min Systolic Blood Pressure 107 mmHg mmHg Diastolic Blood Pressure 52 mmHg mmHg SpO2 100 % % 03/03/2022 10:30 EDT Heart Rate Monitored 53 bpm bpm Respiratory Rate 13 br/min br/min Systolic Blood Pressure 106 mmHg mmHg Diastolic Blood Pressure 50 mmHg mmHg SpO2 100 % % 03/03/2022 10:25 EDT Heart Rate Monitored 54 bpm bpm Respiratory Rate 13 br/min br/min Systolic Blood Pressure 104 mmH (more content not included)... [facility] Comment on above: Result Comment: Elec tronically Signed By: Jhonny Fuentes Jr, DO\.br\Date and Time Signed: 03/14/22 08:36 EDT H&P Updateon 03-10-2022 H&P Update [id number]#1.00CD:127 [facility] H&P Update [id number]#1.00CD:127 [facility] Outside Recordson 03-10-2022 Outside Records [id number]#1.00CD:127 [facility] Postoperative Documentson Postoperative Documents [id number]#1.00CD:127 [facility] Coding Queryon 03-07-2022 Coding Query - From: Analisa Salazar To: Autumn Molina MD, Yoko Hair; Sent: 03/07/2022 13:03:40 EDT ! Subject: Coding Query Dr Rizvi, Please document the size of the bladder tumor- -Less than 0.5 cm -0.5 up to 2.0cm -2.0 to 5.0 cm -Larger than 5.0 cm Thank you, Kimberlee HIM Coding [facility] IntraOperative Documentson 0 03-07-2022 IntraOperative Documents [id number]#1.00CD:127 [facility] Consent for Anesthesiaon Consent for Anesthesia [id number]#1.00CD:127 [facility] Discharge Instructionson Discharge Instructions [id number]#1.00CD:127 [facility] IntraOperative Documentson 0 03-04-2022 IntraOperative Documents [id number]#1.00CD:127 Normal [facility] IntraOperative Documents [id number]#1.00CD:127 [facility] Main OR Intraoperative Recor don 03-04-2022 Main OR Intraoperative Record IntraOp Document Type FT Summary Primary Physician: Yoko Rizvi Jr., MD Finalized Date/Time: 03/04/22 12:28:36 Pt. Name: TAURUS GARCIA/Sex: 1945 Male Med Rec #: [id number] Physician: Yoko Rizvi Jr., MD Financial #: [id number] Pt. Type: A Room/Bed: [place] [address] Admit/Disch: 03/03/22 07:42:53 - 03/03/22 13:20:00 Institution: Case Times FT Entry 1 Patient Times In Room 03/03/22 09:59:00 Out Room 03/03/22 11:23:00 Procedure Times Start 03/03/22 10:23:00 Stop 03/03/22 11:16:00 Anesthesia Times Start 03/03/22 09:59:00 Stop 03/03/22 11:23:00 Last Modified By: Zuleyma Martinez 03/03/22 11:39:47 General Comments: 03/04/22 Chart opened to review and send charges [facility] Case Attendance FT Entry 1 Entry 2 Entry 3 Case Attendee Autumn Moilna MD, Yoko Kong RN, Zuleyma Alfonso Role Performed Surgeon - Primary Paint Supervisor - Primary Paint Supervisor - Primary Time In 03/03/22 09:59:00 03/03/22 09:59:00 03/03/22 09:59:00 Time Out 03/03/22 11:23:00 03/03/22 11:23:00 03/03/22 11:23:00 Procedure CYSTOSCOPY TURB(.) CYSTOSCOPY TURB(.) CYSTOSCOPY TURB(.) Comments precepting orienting Last Modified By: Zuleyma Martinez Leanne M Pierson, Leanne M 03/03/22 12:03:26 03/03/22 11:39:52 03/03/22 11:39:52 Entry 4 Entry 5 Entry 6 Case Attendee Masha Cedeño CST, Lydia LE, Jessica Ceja Role Performed Scrub - Primary Scrub - Primary Anesthesiologist Communications Project Lead Time In 03/03/22 09:59:00 03/03/22 09:59:00 03/03/22 09:59:00 Time Out 03/03/22 11:23:00 03/03/22 11:23:00 03/03/22 11:23:00 Procedure CYSTOSCOPY TURB(.) CYSTOSCOPY TURB(.) CYSTOSCOPY TURB(.) Comments precepting orienting 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 Last Modified By: Zuleyma Martinez Leanne M Pierson, Leanne M 03/03/22 11:39:52 03/03/22 11:39:52 03/03/22 11:39:52 Perioperative Protocols FT Pre-Care Text: Implements protective measures prior to operative or invasive procedure, confirms identity before the operative or invasive procedure, verifies operative procedure, surgical site, and laterality Entry 1 Procedure(s) CYSTOSCOPY TURB(.) Patient Identity Birthday, ID Band Verified (select at Check, Patient least 2): Participation Consents / H and P Anesthesia Consent, Operative Site N/A Verified HandP, Surgery/Procedure Marking Verified Consent Surgical Site Yes Laterality Verified n/a Verified Procedure Verified Yes Correct Patient Yes Position Verified Availability Equipment, Medication Prep Dry n/a Verified (If Applicable) PreOp Antibiotic Yes Time Out Autumn Molina MD, Yoko Hair, Given Participants Dilan ROMERO, Radha Velez, Zuleyma Martinez, Masha Cedeño Schafer CST, Gabriel Hammond, Jessica Donovan Time Out Complete 03/03/22 10:05:00 Outcomes Met? Yes Last Modified By: Zuleyma Martinez 03/03/22 10:57:17 Post-Care Text: The patient is free from signs and symptoms of injury caused by extraneous objects Allergy Information FT Pre-Care Text: Verifies allergies Entry 1 Allergies Reviewed? Yes Allergies Reviewed Self/Patient With Outcomes Met? Yes Last Modified By: Zuleyma Martinez 03/03/22 10:33:14 Post-Care Text: The patient received appropriate medication(s) safely administered during the perioperative period Surgical Procedures FT Entry 1 Procedure Description Procedure CYSTOSCOPY TURB Modifiers . Surgeon Description CYSTOSCOPY TURBT WITH MYTOMYCIN Primary Procedure Yes Primary Surgeon Yoko Rizvi Jr., MD Start 03/03/22 10:23:00 Stop 03/03/22 11:16:00 Anesthesia Type General Surgical Service Urology Wound Class 2 - Clean-Contaminated Last Modified By: Zuleyma Martinez 03/03/22 11:49:06 General Case Data FT Pre-Care Text: Classifies surgical wound, implements aseptic technique, initiates traffic control Entry 1 Case Information OR OR 1 FT Case Level Level 3 Wound Class 2 - Clean-Contaminated Specialty Urology ASA Class 3 Preop Diagnosis MALIGNANT NEOPLASM Postop Same As Preop Yes LATERAL WALL BLADDER Postop Diagnosis MALIGNANT NEOPLASM Outcomes Met? Yes LATERAL WALL BLADDER Last Modified By: Zuleyma Martinez 03/03/22 10:42:34 Post-Care Text: The patient is free from signs and symptoms of infection Skin Assessment (Pre Procedure) FT Pre-Care Text: Implements protective measures to prevent skin/ tissue injury due to thermal or mechanical sources Evaluates for signs and symptoms of physical injury to skin and tissue Entry 1 Skin Integrity Intact, Dozier, Warm, and Skin Abnormality No Dry Outcomes Met? Yes Last Modified By: Zuleyma Martinez 03/03/22 10:42:49 Post-Care Text: The patient is free from signs and symptoms of injury caused by extraneous objects Patient Positioning FT Pre-Care Text: Identifies physical alterations that require additional precautions for procedure-specific positioning, verifies presence of p (more content not included)... Normal [facility] Main OR PACU I Recordon 02-18 Main OR PACU I Record PACU Phase I Docum ent Type FT Summary Primary Physician: Yoko Rizvi Jr., MD Finalized Date/Time: 03/04/22 07:47:44 Pt. Name: TAURUS GARCIA /Sex: 1945 Male Med Rec #: [id number] Physician: Yoko Rizvi Jr., MD Financial #: [id number] Pt. Type: A Room/Bed: [place] [address] Admit/Disch: 03/03/22 07:42:53 - 03/03/22 13:20:00 Institution: Case Times PACU I FT Pre-Care Text: Identifies barriers to communication and implements measures to provide psychological support Develops individualized plan of care, and ensures continuity of care Maintains patient's dignity and privacy, and maintains patient confidentiality Identifies and reports philosophical, cultural, and spiritual beliefs and values Identifies individual values and wishes concerning care Implements aseptic technique, and administers prescribed antibiotic therapy and immunizing agents as ordered Evaluates postoperative tissue perfusion Implements thermoregulation measures, and monitors body temperature Evaluates postoperative respiratory status Evaluates postoperative cardiac status Evaluates postoperative neurological status Assesses pain control, collaborated in initiating patient-controlled analgesia and implements alternative methods of pain control Verifies allergies, administers prescribed medications and solutions, evaluates response to medications Entry 1 In PACU I 03/03/22 11:25:00 Discharge from PACU 03/03/22 11:55:00 I Outcomes Met? Yes Last Modified By: Debra Boyle RN 03/03/22 15:55:32 Post-Care Text: The patient demonstrates knowledge of the expected response to the operative or invasive procedure The patient's care is consistent with the individualized perioperative plan of care The patient's right to privacy is maintained The patient's value system, lifestyle, ethnicity, and culture are considered, respected, and incorporated into the perioperative plan of care The patient participates in decisions affecting his or her perioperative plan of care The patient is free from signs and symptoms of infection The patient has wound/tissue perfusion consistent with or improved from baseline levels established preoperatively The patient is at or returning to normothermia at the conclusion of the immediate postoperative period The patient's respiratory function is consistent with or improved from baseline levels established preoperatively The patient's cardiovascular status is consistent with or improved from baseline levels established preoperatively The patient's cardiovascular status is consistent with or improved from baseline levels established preoperatively The patient demonstrates and/or reports adequate pain control throughout the perioperative period The patient received appropriate medication(s), safely administered during the perioperative period Acuity Level PACU I FT Entry 1 Start Time 03/03/22 11:25:00 Stop Time 03/03/22 11:55:00 Acuity Level Acuity Level I Last Modified By: Lucy Ohara RN 03/04/22 07:47:42 General Comments: 03/04/2022 0747hr Libertad-op doc updated. HEATHER Marshall Finalized By: Lucy Ohara RN Document Signatures Signed By: Debra Boyle RN 03/03/22 15:56 Debra Boyle RN 03/03/22 15:56 Lucy Ohara RN 03/04/22 07:47 Normal [facility] Preoperative Documentson Preoperative Documents [id number]#1.00CD:127 [facility] Preoperative Documents [id number]#1.00CD:127 [facility] Consent for Procedure/Surger yon 03-03-2022 Consent for Procedure/Surgery [id number]#1.00CD:127 [facility] Consent for Treatmenton 02-18 Consent for Treatment [id number]#1.00CD:127 [facility] Inpatient Patient Summaryon 03-03-2022 Inpatient Patient Summary [place] [id number] Clinical Discharge Instructions PERSON INFORMATION Name: TAURUS GARCIA PHYSICIANS Admitting Physician: Yoko Rizvi Jr., MD Attending Physician: Yoko Rizvi Jr., MD PCP: SARBJIT BRIDGES, KOMAL Hamlin Discharge Diagnosis: Malignant neoplasm of overlapping sites of bladder Comment: PATIENT EDUCATION INFORMATION Instructions: Post Op Patient Instructions - FT (CUSTOM) Medication Leaflets: Follow up: With: Address: When: [facility], [address] [place] [address] Business (1) Within 2 to 4 weeks Comments: Reviewed pathology report and plan exudative treatment. Call for any problems. Call for followup appointment MEDICATION LIST New Medications [id number], [address] [place] [id number], [phone] cephalexin (Keflex 500 mg Cap) 1 Capsules By Mouth every 12 hours for 5 Days. Refills: 0. phenazopyridine (Pyridium 100 mg Tab) 1 Tablets By Mouth 2 times a day as needed dysuria for 5 Days. Refills: 0. Medications to Continue Taking That Have Changed Other Medications START: hydrALAZINE 50 Milligram By Mouth 2 times a day. START: multivitamin (Multi Vitamins oral tablet) 1 Tablets By Mouth every day. START: omega-3 polyunsaturated fatty acids (Fish Oil) 1,200 Milligram By Mouth 2 times a day. START: potassium chloride (potassium chloride 10 mEq Cap-ER) 1 Capsules By Mouth every day. START: simvastatin (simvastatin 40 mg Tab) 1 Tablets By Mouth once a day (at bedtime). Medications to Continue with No Changes Other Medications apixaban (Eliquis 5 mg oral tablet) 1 Tablets By Mouth 2 times a day. baclofen (baclofen 10 mg Tab) 1 Tablets By Mouth 3 times a day. furosemide (furosemide 20 mg Tab) 1 Tablets By Mouth every day. gabapentin (gabapentin 300 mg Cap) 1 Capsules By Mouth every day. hydrochlorothiazide-triamt erene (hydrochlorothiazide-triam terene 25 mg-37.5 mg Cap) 1 Capsules By Mouth every day. lisinopril (lisinopril 20 mg Tab) 1 Tablets By Mouth every day. nebivolol (nebivolol 10 mg Tab) 1 Tablets By Mouth every day. Non-Formulary Medication (Aller-itin) 1 tab By Mouth every day. allergies. predniSONE (predniSONE 10 mg Tab) 1 Tablets By Mouth every day. pyridostigmine (pyridostigmine 60 mg Tab) 1 Tablets By Mouth 4 times a day., Myasthenia Gravis Comment: Normal [facility] Main OR Preoperative Recordo n 03-03-2022 Main OR Preoperative Record PreOp Document Type FT Summary Primary Physician: Yoko Rizvi Jr., MD Finalized Date/Time: 03/03/22 12:14:22 Pt. Name: TAURUS GARCIA /Sex: 1945 Male Med Rec #: [id number] Physician: Yoko Rizvi Jr., MD Financial #: [id number] Pt. Type: A Room/Bed: [place] [address] Admit/Disch: 03/03/22 07:42:53 - Institution: Case Times PreOp FT Pre-Care Text: Verifies consent for planned procedure, identifies individual values and wishes concerning care, includes family members in perioperative teaching Entry 1 Patient Times. In Pre Surgery 03/03/22 07:45:00 Out Pre Surgery 03/03/22 09:57:00 Outcomes Met? Yes Last Modified By: Zuleyma Martinez 03/03/22 12:14:18 Post-Care Text: The patient participates in decisions affecting his or her perioperative plan of care Finalized By: Zuleyma Martinez Document Signatures Signed By: Zuleyma Martinez 03/03/22 12:14 Normal [facility] Operative Reporton Operative Report Patient: MARGRET GARCIA Age: 76 years Sex: Male : 1945 Associated Diagnoses: None Author: Yoko Rizvi Jr., MD Postoperative Information Procedure: Cystoscopy with transurethral resection of bladder tumor, instillation of Mitomycin-C Date/ Time: 03/03/2022 11:30:00 Preoperative Diagnosis: Malignant neoplasm of overlapping sites of bladder (AMX18-OF C67.8, Discharge, Medical). Postoperative Diagnosis: Malignant neoplasm of overlapping sites of bladder (ZLA33-CY C67.8, Discharge, Medical). Performed by: Yoko Rizvi Jr., MD. Findings: This patient is a 76-year-old male with a history of a bladder cancer. He is here today for second resection of his bladder cancer. He is also scheduled for instillation of Mitomycin-C. The procedure, risk, alternatives and potential complications have been discussed with the patient preoperatively. This patient was brought to the operating suite where he was placed under general anesthesia. He was carefully positioned in lithotomy. All pressure points were padded. SCDs were in place were used throughout the case. After routine prep and drape 2% Xylocaine gel was introduced into the urethra for local anesthesia. Endoscopic examination was performed using a standard cystoscope, videocamera and 30 degree lens. Evaluation revealed a bladder tumor located in the left bladder wall near the dome. This did not have a papillary appearance. Appear to be fairly high-grade and fairly wide-based. Resection of the bladder tumor was performed using a continuous-flow resectoscope, bipolar cautery unit and direct vision using a 30 degree lens. Because of the location of the tumor was very difficult to resect this area completely. I was not able to resect all the way down to the base of the tumor. The patient is morbidly obese and because of his body habitus positioning the scope and being able to reach near the dome of the bladder is a very difficult proposition. I was able to resect a significant portion of the tumor without perforating the bladder. There was minimal bleeding during this procedure. Specimens were collected and sent to the lab for pathologic evaluation. Once I was sure arabella there were no perforations of the bladder and there was no bleeding a 16 Georgian Harrell cath was introduced. 40 mg of Mitomycin-C was then instilled into the Harrell catheter which was then connected to the drainage bag which was clamped. When this was completed the patient was aroused from anesthesia and taken out of lithotomy. He was transported to recovery in good condition. The plans are that the patient will be rolled from side to side for 20 minutes on each side until the entire bladder was coated with Mitomycin-C. Following that the catheter will be drained and then the catheter will be removed prior to the patient being discharged home. Follow-up in the office will be planned for 2 to 4 weeks and then home-going medications will include an oral antibiotic and Pyridium. Patient is instructed to limit his physical activity for the next 24 to 48 hours and go to the emergency department or contact the office if he has any postoperative problems. Final diagnosis: Bladder cancer Procedure: Cystoscopy with transurethral resection of bladder tumor, instillation of Mitomycin-C Yoko Rizvi Jr., MD, FACS . Specimens Removed: Bladder tumor. Prosthesis: 16 Georgian Harrell catheter. . Estimated Blood Loss: 5 ml. Medications: Mitomycin-C 40 mg intravesical instillation. Complications: None. Anesthesia type: General. Normal [facility] Comment on above: Result Comment: Elec tronically Signed By: Autumn Molina MD, Yoko Hair\.br\Date and Time Signed: 03/03/22 11:36 EDT Outpatient Surgery Discharge Instructionon 03-03-2022 Outpatient Surgery Discharge Instruction [address] [address] Patient Discharge Instructions PERSON INFORMATION Name: TAURUS GARCIA Date of : 1945 Current Date: 03/03/2022 11:56:44 PHYSICIANS Admitting Physician: Autumn Molina MD, Yoko Hair Discharge Diagnosis: Malignant neoplasm of overlapping sites of bladder TAURUS GARCIA has been given the following list of follow-up instructions, prescriptions, and patient education materials: PATIENT FOLLOW-UP INFORMATION Diet: Regular Discharge Activity: Activity as tolerated Discharge Restrictions: No driving for 24 hrs Call Your Doctor For: Persistent or heavy bleeding, Temperature above 101.5 degrees IF UNABLE TO CONTACT YOUR PHYSICIAN AND YOU FEEL IT IS AN EMERGENCY, GO TO THE NEAREST EMERGENCY ROOM OR CALL 911 I, TAURUS GARCIA, have received the attached patient education materials/instructions and have verbalized understanding: May we do a follow up call? Yes No I was present when discharge instructions were given ____ Patient Signature _ Date Clinican/Nurse Signature Date Follow up: With: Address: When: [facility], [address], [place] [address] Business (1) Within 2 to 4 weeks Comments: Reviewed pathology report and plan exudative treatment. Call for any problems. Call for followup appointment Pharmacy Information: You may receive a survey from Sheryl Michael asking you to rate your care experience. Your feedback is important and will help us understand what we do well and how we can improve the quality of care we provide to you, your loved ones and our community. It?s an honor to serve you. Thank you for choosing [facility] HERE ARE THE MEDICATION CHANGES THAT OCCURRED DURING YOUR HOSPITAL STAY New Medications [facility], [address] [place], [place] [id number], [phone] cephalexin (Keflex 500 mg Cap) 1 Capsules By Mouth every 12 hours for 5 Days. Refills: 0. phenazopyridine (Pyridium 100 mg Tab) 1 Tablets By Mouth 2 times a day as needed dysuria for 5 Days. Refills: 0. Medications to Continue Taking That Have Changed Other Medications START: hydrALAZINE 50 Milligram By Mouth 2 times a day. START: multivitamin (Multi Vitamins oral tablet) 1 Tablets By Mouth every day. START: omega-3 polyunsaturated fatty acids (Fish Oil) 1,200 Milligram By Mouth 2 times a day. START: potassium chloride (potassium chloride 10 mEq Cap-ER) 1 Capsules By Mouth every day. START: simvastatin (simvastatin 40 mg Tab) 1 Tablets By Mouth once a day (at bedtime). Medications to Continue with No Changes Other Medications apixaban (Eliquis 5 mg oral tablet) 1 Tablets By Mouth 2 times a day. baclofen (baclofen 10 mg Tab) 1 Tablets By Mouth 3 times a day. furosemide (furosemide 20 mg Tab) 1 Tablets By Mouth every day. gabapentin (gabapentin 300 mg Cap) 1 Capsules By Mouth every day. hydrochlorothiazide-triamt erene (hydrochlorothiazide-triam terene 25 mg-37.5 mg Cap) 1 Capsules By Mouth every day. lisinopril (lisinopril 20 mg Tab) 1 Tablets By Mouth every day. nebivolol (nebivolol 10 mg Tab) 1 Tablets By Mouth every day. Non-Formulary Medication (Aller-itin) 1 tab By Mouth every day. allergies. predniSONE (predniSONE 10 mg Tab) 1 Tablets By Mouth every day. pyridostigmine (pyridostigmine 60 mg Tab) 1 Tablets By Mouth 4 times a day., Myasthenia Gravis PATIENT EDUCATION INFORMATION Instructions: Medication Leaflets: [facility] Patient Education - Texton 0 03-03-2022 Patient Education - Text [facility] Outside Recordson 03-01-2022 Outside Records [id number]#1.00CD:127 [facility] Formson 02-28-2022 Forms [id number]#1.00CD:127 [facility] Coding Summary.on 02-24-2022 Coding Summary. CD:[id number] Gh0bWw +PGhlYWQ+YQ8UOYUtN35dyAYxk K0WI4kQKO1VKUTWKBQUAJ2ECI2 lnPH8WKvaK6LafpEx SyiaeSJtYG82BRp7EWB3bMhaAS mnkF4nqGKzQ9k0RxZcNP69eY38 LEieRVYwAcS4HgHqszhedXGs F8izLkNjxBNvTyd+PHRhYmxlIH fvQBQbDHojYYLnLkYsmEapMW9v Ac5wCNNySYJdbZbzjXHoRsVf v7teCYOeBZpxZI2jiLtkD1XscL I4VSFfu8d7Sc39ySH+PHRkIHN0 rIdkYLwsd994CrUqx5eaZPA1 aRIiLFziWLM8C88ay1Y1UPTiAF IfCVK8hPO1gT9ivOromodcZ5Go qPSeMvF9YCG1pHHblY2udJtm nhokdT4dKwz+G80SBI4YKEYZHZ 8XPmk5U0BpPpqgkXP+WJ90MWXs YS47cSLxmLKvx0jbuUy3YuLl ESIkNQJ3gTdcHFraz5XhFADuZ9 9wxBJxk9Q6YFSzfFmhxGZdDhAl qQZ5pF4nAFdatoivb0xfauyf Tgubd0nrda75gD93S67lGWufAB OvUSA6CYDhJNHwmSgtbo9uoM8b Ii8+NWmfv2flu2xwuBc9LsLe WNSkutIoeOmmLWC4b8BvHu95U9 TsnLjvr1IpJrs6uy67aXMti2Q4 vVW1XXapSXCudQ1cNJukNmY6 KYBtYvElsN28xEZkLDylIy5xoJ bxxOihON9eMTIapztxZEQgsQ4n UOHcaIVuoHaaCD8vGTRiqmxd d832YfXiQOE5WCUwvZSrV3ZluE 0hJkSpWWTkEHTnC6SddLJoQYlu U443CScsHnQ2IGFnnqEfX4Ff GWLsrJvnQeO6e2V8Re7Uh0Haoj yzEKX9CVxtEOY4RlK7YjXuZvA5 A9XqKgz2NLKkdBslND1xO6Vx OFPjtydxqzmylBX5MIHlPQRafL 18iPIvXYbxHo3uo5W6c484XQGe FEXqaU68Kb2gjGxrETAgrZAE gH1jidpmq0kjttuhUuEwWULlFB s9UXp2AYWiaJliFwPjZWM0YbO4 WMP0lHEmuD9feVcidtvwwN3c Oyc+S38haU0qIMH3JZA1vyadBU NigbHsIP31TT09H9FqLnowcELx bGU+KQSkdhHnxVziKF3vJnNf d2ldx6VcVSrlV9ZxXRRlLHzcHx f3KFHsJYU4eLP9jS7uKSDwBUnf l8T1qEA3A7MrrsOzfx0lr9se APIfWVkkX80djWXip7N7CCAxmL C4TWWjdYbtVqTsfG81Jvg+PGNv zWeje0DdNfnyt0ozz1yitMn6 YpQuVPRvgaRxbYvkBNO7c6ElKr 68J57gTTbcPKTqNPNiRBJtZZLh gRnzks9xtF4iMt5+PGNvbCB3 mTJ2zK9tBMOpYzV3MNhvJ774Ba BwcUOiKqudm0qnh9khjHt7RkHb LWCplrMhgIroLHO8t2LkOn29 H40rHRvqBHXrMTVtBVWcEMXeuP rfrv0ysF8fOg3+ZP1on1tjzh90 rB87mJI+FKQbVOH2tZwjDNik QLLxhC2vEXloInT1NCEfFjWhjK 26pWVkNLacRc3pmQuerVkaHD8a YITjiikjl560JfItg8lyLURg gSOyVZzuWTY7U63ek6M7QZTjZV LkHCM0wTB7fG4tiWdrxciddMYq mYcjzeHzkOldXKibIYjjR983 IHRvcDsnPlBhdGllbnQgTmFtZT j1O7ShPza2QTIlgOimYA1huQFe TEqtWc9qhOdhyDupRE0mDZFp mxhoj625BlLtj1euWTCnoTAmRA lkPXN7Q51tw5J0LPTeADMkCIR3 wWU7iU4bcVmytrifoPUshPfk bjRjmWegQDryCVyaD080ZTGhcK qvYcLfroKgHPDhlIJ2DH40KT41 gBReo4T7dVN5G6RiWNGpjjwg loexyXH9QZJmFGAusL23Xb0vfM wfPn6fAALnQCE8LFJkzNIeY5Hv oO0lXxDaMXFwZBNoH3XpcENj ERmxA677JYxoJnX0TBJxyyZzM5 XiJAPmoIsgJdN3k2U7Tt1SL2C6 IK67TU13sNPip2R4wSE6N3Wm CWBkwjouhlkbbMW3SBLyVKQsxQ 31Kd1qgAdlYp8aBQKkXMS6HLTf sFUdS3OyeJ7mAiNyCAFjPJMs U5HahLJgAHhpP506DCgiXzP8AY HlwuRlH2FtPOQaaAqfQhQ9x4D0 Rs1AGRd7PL16WB47nXYkp1S2 rJF6U3YiRFXrugrjlbbxjTM4IJ FgMZGkeV94Ng3nbIhtPu0hATNr AXL4YLMojVMrG6CooX3oVtEy SWEbOLNpZ4FrnAMcJLoiR384JN ygUaM6OSWggpImN0VzMBLdaHxf NlK9i5P4Wf3FMKXpFM25PJP8 vKG6ZH78UU30O6PvNgqafZVqqE U+PHRhYmxlIHdpZHRoPScxMDAl LrNjsMoyDL9zXb5sWGCvFBNt dShhtQQfQsZls9ehGSJxKWxqAR 1pjJyzH2ZfxBV4CFGet1y1Cn69 A85gV4XkmPA+KTCmrQD2kLI9 aB1xYaCbIpV1QWzyX766JnOnfG VpSfitg4gil9phaIa1CrW4GWHm iwJlhVylCCE8u6FoKd07I62e IHdpZHRoPSIxNSUiIHZhbGlnbj 5qxY5kQl1+DIRcgID1lDS7hZ3j FyRzQfD0WQrvW771FqXeiEKx Ytgtd9iwd6afoHq4PzVtCISotl ZulDkpNUV6v3LwQo29W5DttZbx x0TkWlq2gu51xPLcb6X9dDW0 V6BaGRFcdmlhlQOmkHcfJA3mGY VafdklPFTmoA2tSOLfJ3n2HsRq LyR8FNtrS6TeqnD5JXDenXEw QXojOVV6X42ol5X6OLDhVQWoAQ G3sOS2kM4mxUyddsigrVIqnYyv xuXhpWkrGDtaPJbpX658UHSk wFptAHLulY8oXPPgeGRvtEfeDI 4tYCDjmtreMvBOL42DLfpnZ5pG DpqBQoFCFW57PR66xTWfe8J6 sKC5G5EtOUBeeukhhtqbaQS7KS XrPXGuyI63gDXpWScoDl7rf0H0 l565DTNnBBYihW30Pf0keYfg MCQajDCLgQ2ofsvux2foomdmBn DjLACmKTi7ODn7DGVttRazKsVk EYA9UtO3RRC9eWBhhN3ruZgj upxzlV5yYwu+GSDaBHVmZXy0WF wvdGQ+CMKtCVD5oYaoZEozSHXr iF5xRTUeK5d6OgAgDiH2JPtk Q8KdKEDtcsqlUt76cE7vDmRgHz X5AQhtK0YgxrT5PEVqjPJqPRgr YPH0G40ik7G1COZxXZPgHDH7 hQP0nF3mmKjpdcjorTMsjBqmms RfbJqzTSjdEAvrG269NXTcdGdi Dwk5RJqeSVAgPD02US47pFOa c6R0sHW0Y4YnTLFmbhqyepmwmC U0KLLtXVZntO06eECqUCbsRf0c f2N2n222HAUtIYLjwK91Ae4i rRolZTCxbJVPyB2twzari9kspi xrGrOiVZDwNZk0BVc5TLQkuRxp HaFzEZV4AfV3RGU9pOFkdG1p cLgdhvyzoR3hRjo+TWFsZTwvdG Q+UMZgTIV6dKwuOQkcWRYthO8v NLIyE0g1GhErIiA6TUhoG4Gp SZOqpdgrYn28yE4pVaPoWxE9GP zbT0LhjmL5TYKfrWZrCBcaNVS2 Z52fx3U4MDCkMFOgVEU8zGS7 kP2nxUxveybubBYdbLzubxUqoD qsPPkjJBqnX457ISPueJbeLd44 jFYwtJgrkvZ5S9BxJvhzbWM+ BK90WTVmFA52vKYfzPZwc4gnsJ m3EtBkIMWcZAC0jHyyENfgg8Hr LZXnO10gzXCzq3V0GNJheAic wVMfMiGflTN7hB7wRDvusyooe0 ozngpiMugln8sfzb37bM08O35r IHdpZHRoPSIzMCUiIHZhbGln jq2rtY2eRs2+YEFuvSS8gFL3pN 1aAvEhLtA6UDohR898RaOsfVOf Taowa5apz5ulcXc2PnSoWEDo guYfxYrwOVV8x8AfNx24C74pDQ wcKQEaTDScDXHrGBWicHpfub7g aF8nPv5+CI5tf0tniv91lS98 dHI+ZPFcOWJ3lBxdXPoyBFOakF 6mNJjqSmP8QGDsNsTlhJ48rPSj UQgoKz9cgOlvxJuvJW8iGPFe gnqpd803UeYqr2znVRXcaHVyRZ cwTZC9N52vl3T3SULzLQRlBXO4 gJZ4rY3saFjtywekfHXhnIre oeRsmKsmJPjjTBbxI635CBXyrI jnDfExdVFpH4bskrEDJI9hLkyn dGQ+ESVoDSK2eGebHQikMSPc nZ6zKLWrF9s4EhRiQvM9FAnzJ9 QogdL5SZZatQItIAXurAXVoK8p touya7qeonfnBwObSNKaRSi3 PNi6OCXikWlmLoVoLEV2RgH5IG E3fCAlpS2eoQdxeqtfyF4nUwg+ RklOOjwvdGQ+RVMhRRW6fNxk FYscFFRupV7uUSFgQ2r8VmAuXc T9EGurZ8MamwL3CCMkwDQuFRFf jBPArT9mywdxq2mxtouuBxQr XSVaXQl1YSd1EJUfkWvrAnUdAP F0CnJ6SAK0wIUykA8hlCsekwft gJ1jHsa+TVJOOjwvdGQ+PHRk FOI8mDozSFpcPYYfgJ5eJGBnE2 b6QhZkPiB6AXjyS1IngsU7TYJz sYGtMWAywOGYyM5rxmdbg0lu lofxQhSvGDKxAJn6SVd0EQGxtX qoWbRvGEF1RwW9GFY3hNGquV6g hFekjzakyH2pBcw+TFT6SGP4 EX79RZ99E5DgZrzfySDnvTB+PH RhYmxlIHdpZHRoPScxMDAlJyBz fJwkKO6jHx3sZCYmAAZppUas cHNl (more content not included)... Normal [facility] Outside Recordson 02-22-2022 Outside Records [id number]#1.00CD:127 Normal [facility] Outside Records [id number]#1.00CD:127 Normal [facility] Outside Records [id number]#[id number]:127 Normal [facility] C Urineon 02-19-2022 Bacteria identified Cx Nom (U) Microbiology PROCEDURE: Urine Culture [R1] SOURCE: U CleanCatch BODY SITE: COLLECTED DATE/TIME: 02/17/2022 14:09 EDT RECEIVED DATE/TIME: 02/17/2022 15:25 EDT START DATE/TIME: 02/17/2022 15:25 EDT FREE TEXT SOURCE: Autumn Molina MD, Yoko Rizvi Jr., MD, Yoko Hair FINAL REPORTS Final Report [] Verified Date/Time: 02/19/2022 09:50 EDT 1,000 cfu/ml Mixed skin contaminants Performing Locations R1: This test was performed at: [facility], [address] [place] [address], [address] , , [facility] Comment on above: Performed By: #### 1 [id number], [id number] #### [facility] [address] [place] [address] XR Chest 2 Viewson XR Chest 2 Views Exam Date/Time: 02/17/2022 14:27 EDT Reason for Exam: PRE OP Report IMPRESSION: NO EVIDENCE OF ACTIVE CHEST DISEASE. CLINICAL HISTORY: PRE OP. COMMENT: The heart is normal in size. There are mediastinal and hilar granulomatous calcifications. The lungs appear clear. No infiltration nor pleural effusion is evident. FINAL REPORT Dictated: 02/18/2022 7:44 am Baltazar Hassan M.D. Signed (Electronic Signature): 02/18/2022 7:44 am Signed by: Baltazar Hassan M.D. Transcribed by: SANDY Technologist: PABLO Normal [facility] Auto Diffon 02-17-2022 Basophils/100 WBC (Bld) 0.6 % Normal 0.0-2.0 [facility] Comment on above: Order Comment: Order Added by Discern Expert. Performed By: #### 2 [id number] ####[facility] [address] [place] [address] Basophils/Leukocytes Auto (Bld) [Pure # fraction] 0.0 E9/L Normal 0.0-0.2 [facility] Comment on above: Order Comment: Order Added by Discern Expert. Performed By: #### 2 [id number] ####[facility] [address] [place] [address] Eosinophils/100 WBC (Bld) 0.2 % Normal 0.0-8.0 [facility] [facility] Comment on above: Order Comment: Order Added by Discern Expert. Performed By: #### 2 828878, 1448611, 87832797, 74687150, 5139203 ####[address] [place] [address] Eosinophils/Leukocytes Auto (Bld) [Pure # fraction] 0.0 E9/L Normal 0.0-0.5 [facility] Comment on above: Order Comment: Order Added by Mary Expert. Performed By: #### 2 842576, 4552137, 27935017, 51438720, 4189561 ####[facility] [address] [place] [address] Lymphocytes/100 WBC (Bld) 9.6 % Low 14.0-50.0 [facility] Comment on above: Order Comment: Order Added by Mary Expert. Performed By: #### 2 143920, 5194374, 41369414, 53869491, 5007003 ####[address] [place] [address] Lymphocytes/Leukocytes Auto (Bld) [Pure # fraction] 0.7 E9/L Low 1.0-4.0 [facility] Comment on above: Order Comment: Order Added by Mary Expert. Performed By: #### 2 515532, 8692143, 38341752, 99475834, 2179074 ####[address] [place] [address] Monocytes/100 WBC (Bld) 7.0 % Normal 4.0-14.0 [facility] Comment on above: Order Comment: Order Added by Mary Expert. Performed By: #### 2 510230, 4666231, 59202322, 99323482, 5340185 ####[facility] [address] [place] [address] Monocytes/Leukocytes Auto (Bld) [Pure # fraction] 0.5 E9/L Normal 0.2-1.0 [facility] Comment on above: Order Comment: Order Added by Discern Expert. Performed By: #### 2 315275, 1743280, 59424902, 44573523, 7382206 ####[facility] [address] [place] [address] Neutrophils/100 WBC (Bld) 82.6 % High 36.0-75.0 [facility] Comment on above: Order Comment: Order Added by Discern Expert. Performed By: #### 2 715653, 5824561, 52004305, 12903479, 8124559 ####[facility] [address] [place] [address] Neutrophils/Leukocytes Auto (Bld) [Pure # fraction] 6.3 E9/L Normal 2.0-7.5 [facility] Comment on above: Order Comment: Order Added by Discern Expert. Performed By: #### 2 021194, 3770524, 96220953, 72262074, 4718064 ####[facility] [address] [place] [address] BMPon 02-17-2022 Anion gap [Moles/Vol] 11 mmol/L Normal 6-16 [facility] Comment on above: Performed By: #### 2 392835, 5943446, 80427229, 68961187, 8048545 ####[facility] [address] [place] [address] Calcium [Mass/Vol] 9.3 mg/dL Normal 8.9-11.1 [facility] Comment on above: Performed By: #### 2 379445, 5892458, 63655949, 21905841, 1144983 ####[facility] [address] [place] [address] Chloride [Moles/Vol] 104 mmol/L Normal 101-111 [facility] Comment on above: Performed By: #### 2 676563, 4530626, 59891600, 06538200, 2378698 ####[facility] [address] [address] CO2 [Moles/Vol] 27 mmol/L Normal 21-31 [facility] Comment on above: Performed By: #### 2 302156, 0870079, 77335296, 75761631, 0348823 ####[facility] [address] [address] Creatinine [Mass/Vol] 1.4 mg/dL High 0.5-1.3 [facility] Comment on above: Performed By: #### 2 078676, 5145354, 39517391, 29063184, 8753273 ####[facility] [address] [address] Glucose [Mass/Vol] 144 mg/dL Normal 55-199 [facility] Comment on above: Result Comment: If t his glucose result represents a fasting glucose, interpretation should refer to the following reference range: 55-99 mg/dL Performed By: #### 2 399887, 0665807, 58940610, 76312229, 0720922 ####[facility] [address] [address] Potassium [Moles/Vol] 3.4 mmol/L Low 3.5-5.3 [facility] Comment on above: Performed By: #### 2 252803, 5452195, 47255159, 05611404, 1489917 ####[facility] [address] [place] [address] Sodium [Moles/Vol] 139 mmol/L Normal 135-145 [facility] Comment on above: Performed By: #### 2 069699, 1713663, 41462581, 10142100, 0504882 ####[facility] [address] [place] [address] Urea nitrogen [Mass/Vol] 24 mg/dL High 5-21 [facility] Comment on above: Performed By: #### 2 174490, 0009372, 01241600, 01946608, 4010111 ####[facility] [address] [place] [address] Urea nitrogen/Creatinine [Mass ratio] 17 No Units Normal 10-20 [facility] Comment on above: Performed By: #### 2 309373, 8517464, 08382160, 62510323, 5659843 ####[facility] [address] [place] [address] CBC w/ Auto Diffon Erythrocyte distribution width (RBC) [Ratio] 15.2 % High 10.9-14.2 [facility] Comment on above: Performed By: #### 2 223673, 4539758, 31415140, 72759476, 4996335 ####[facility] [address] [place] [address] Hematocrit (Bld) [Volume fraction] 35.8 % Low 37.7-49.0 [facility] Comment on above: Performed By: #### 2 617158, 1304696, 96681683, 18853421, 4803402 ####[facility] [address] [place] [address] Hemoglobin (Bld) [Mass/Vol] 11.7 g/dL Low 13.5-17.5 [facility] Comment on above: Performed By: #### 2 329119, 6626150, 10037442, 12293013, 8497903 ####[facility] [address] [place] [address] MCH (RBC) [Entitic mass] 29.1 pg Normal 27.0-34.0 [facility] Comment on above: Performed By: #### 2 419455, 1587837, 42709887, 64788443, 7066241 ####[facility] [address] [place] [address] MCHC (RBC) [Mass/Vol] 32.7 g/dL Normal 31.4-36.0 [facility] Comment on above: Performed By: #### 2 122661, 6353928, 81378452, 55747793, 1901349 ####[address] [place] [address] MCV (RBC) [Entitic vol] 89.1 fL Normal 80.0-100.0 [facility] Comment on above: Performed By: #### 2 989968, 6801949, 11734220, 68996741, 1653062 ####[address] [address] Platelet mean volume (Bld) [Entitic vol] 9.4 fL Normal 6.4-10.8 [facility] Comment on above: Performed By: #### 2 931827, 3010756, 62883051, 73648676, 7061215 ####[address] [address] Platelets (Bld) [#/Vol] 185.0 E9/L Normal 150.0-500. 0 [facility] Comment on above: Performed By: #### 2 266796, 6005308, 23473192, 66907332, 7518846 ####[address] [address] RBC (Bld) [#/Vol] 4.0 E12/L Low 4.3-5.9 [facility] Comment on above: Performed By: #### 2 829167, 5754148, 03427597, 66014615, 0944796 ####[address] [place] [address] WBC corrected for nucl RBC Auto (Bld) [#/Vol] 7.7 E9/L Normal 4.0-11.0 [facility] Comment on above: Performed By: #### 2 517785, 1153881, 04741810, 05409617, 4120363 ####[address] [place] [address] CHEMISTRYOrdered By: SYSTEM SYSTEM on 02-17-2022 Anion gap [Moles/Vol] 11 mmol/L Normal 6 - 16 mEq/L FT Remisol Calcium [Mass/Vol] 9.3 mg/dL Normal 8.9 - 11. 1 mg/dL [facility] Chloride [Moles/Vol] 104 mmol/L Normal 101 - 1 11 mmol/L [facility] Rem[facility] CO2 [Moles/Vol] 27 mmol/L Normal 21 - 31 mmol/L [facility] Creatinine [Mass/Vol] 1.4 mg/dL High 0.5 - 1.3 mg/dL [facility] GFR/1.73 sq M.predicted among blacks MDRD (S/P/Bld) [Vol rate/Area] 59 mL/min/1.73 m2 Normal >=59mL/min /1.73 m2 FT Chem S GFR/1.73 sq M.predicted among non-blacks MDRD (S/P/Bld) [Vol rate/Area] 49 mL/min/1.73 m2 Low >=59mL/min /1.73 m2 [facility] Chem S Glucose [Mass/Vol] 144 mg/dL Normal 55 - 199 mg/dL [facility] Remisol Potassium [Moles/Vol] 3.4 mmol/L Low 3.5 - 5.3 mmol/L [facility] Remisol Sodium [Moles/Vol] 139 mmol/L Normal 135 - 145 mmol/L [facility] Remisol Urea nitrogen [Mass/Vol] 24 mg/dL High 5 - 21 mg/dL [facility] Remisol Urea nitrogen/Creatinine [Mass ratio] 17 mg/mg Normal 10 - 20 [facility] Remisol COAGULATIONOrdered By: Luis Enrique Duran on 02-17-2022 aPTT Coag (PPP) [Time] 31.0 s Normal 25.1 - 36.5 second(s) FT Auto Coag INR Coag (PPP) [Relative time] 1.3 {INR} Invalid Interpretation Code [facility] Auto Coag PT Coag (PPP) [Time] 15.5 s High 10.2 - 12.9 second(s) [facility] Auto Coag Consent for Treatmenton 01-21 Consent for Treatment [id number] Normal [facility] HEMATOLOGYOrdered By: SYSTEM SYSTEM on 02-17-2022 Basophils/100 WBC (Bld) 0.6 % Normal 0.0 - 2.0 % [facility] HemeAutoSS Basophils/Leukocytes Auto (Bld) [Pure # fraction] 0.0 E9/L Normal 0.0 - 0.2 E9/L [facility] HemeAutoSS Eosinophils/100 WBC (Bld) 0.2 % Normal 0.0 - 8.0 % [facility] HemeAutoSS Eosinophils/Leukocytes Auto (Bld) [Pure # fraction] 0.0 E9/L Normal 0.0 - 0.5 E9/L [facility] HemeAutoSS Lymphocytes/100 WBC (Bld) 9.6 % Low 14.0 - 50.0 % [facility] HemeAutoSS Lymphocytes/Leukocytes Auto (Bld) [Pure # fraction] 0.7 E9/L Low 1.0 - 4.0 E9/L [facility] HemeAutoSS Monocytes/100 WBC (Bld) 7.0 % Normal 4.0 - 14.0 % [facility] HemeAutoSS Monocytes/Leukocytes Auto (Bld) [Pure # fraction] 0.5 E9/L Normal 0.2 - 1.0 E9/L [facility] HemeAutoSS Neutrophils/100 WBC (Bld) 82.6 % High 36.0 - 75.0 % [facility] HemeAutoSS Neutrophils/Leukocytes Auto (Bld) [Pure # fraction] 6.3 E9/L Normal 2.0 - 7.5 E9/L [facility] HemeAutoSS HEMATOLOGYOrdered By: Evelyne Lorenzo on 02-17-2022 Erythrocyte distribution width (RBC) [Ratio] 15.2 % High 10.9 - 14.2 % [facility] HemeAutoSS Hematocrit (Bld) [Volume fraction] 35.8 % Low 37.7 - 49.0 % [facility] HemeAutoSS Hemoglobin (Bld) [Mass/Vol] 11.7 g/dL Low 13.5 - 17.5 gm/dL [facility] HemeAutoSS MCH (RBC) [Entitic mass] 29.1 pg Normal 27.0 - 34.0 pg [facility] HemeAutoSS MCHC (RBC) [Mass/Vol] 32.7 g/dL Normal 31.4 - 36.0 gm/dL [facility] HemeAutoSS MCV (RBC) [Entitic vol] 89.1 fL Normal 80.0 - 100.0 fL [facility] HemeAutoSS Platelet mean volume (Bld) [Entitic vol] 9.4 fL Normal 6.4 - 10.8 fL [facility] HemeAutoSS Platelets (Bld) [#/Vol] 185.0 E9/L Normal 150.0 - 500.0 E9/L [facility] HemeAutoSS RBC (Bld) [#/Vol] 4.0 E12/L Low 4.3 - 5.9 E12/L [facility] HemeAutoSS WBC corrected for nucl RBC Auto (Bld) [#/Vol] 7.7 E9/L Normal 4.0 - 11.0 E9/L [facility] HemeAutoSS PT & PTTon 02-17-2022 aPTT Coag (PPP) [Time] 31.0 second(s) Normal 25.1-36.5 [facility] Comment on above: Result Comment: Hepa rin therapeutic range (represented by Anti-Factor Xa activity of 0.2 - 0.4 U/mL) corresponds to PTT of 56.6 - 109.0 sec. Performed By: #### 2 338457, 0257667, 77270988, 14031111, 4997036 ####[facility] [address] [place] [address] INR Coag (PPP) [Relative time] 1.3 {INR} Invalid Interpretation Code [facility] Comment on above: Result Comment: INR results are specifically intended to assess patients stabilized on long-term Anticoagulation therapy suggested INR?s ?Less Intensive Anticoagulation? 2.0 ? 3.0 Conventional Range 3.0 ? 4.5 Performed By: #### 2 198105, 9582209, 85057489, 85648239, 4219280 ####[facility] [address] [place] [address] PT Coag (PPP) [Time] 15.5 second(s) High 10.2-12.9 [facility] Comment on above: Performed By: #### 2 972686, 7157673, 87830620, 45959129, 5316532 ####[facility] [address] [place] [address] UA With Cult Reflexon 2021 Bacteria LM Ql (Urine sed) SEE COMMENT Invalid Interpretation Code [facility] Comment on above: Result Comment: POSS IBLY PRESENT BUT OBSCURED BY COPIOUS AMOUNT OF RBCS Performed By: #### 1 0457419, 1928151 #### [facility] [address] [place] [address] Bilirubin Ql (U) Negative Normal Negative [facility] Comment on above: Performed By: #### 1 4400516, 3415564 #### [facility] [address] [place] [address] Clarity (U) CLOUDY Abnormal Clear [facility] Comment on above: Performed By: #### 1 3286655, 5416367 #### [facility] [address] [place] [address] Color (U) RED Abnormal Yellow [facility] Comment on above: Performed By: #### 1 8251946, 3438802 #### [facility] [address] [place] [address] Epithelial cells.squamous LM.HPF (Urine sed) [#/Area] See Comment Normal 0-2 [facility] Comment on above: Result Comment: POSS IBLY PRESENT BUT OBSCURED BY COPIOUS AMOUNT OF RBCS Performed By: #### 1 6266602, 9522009 #### [facility] [address] [place] [address] Glucose Test strip (U) [Mass/Vol] Negative Normal Negative [facility] Comment on above: Performed By: #### 1 8444858, 6055572 #### [facility] [address] [place] [address] Hemoglobin Ql (U) 3+ Abnormal Negative [facility] Comment on above: Performed By: #### 1 0793107, 6602655 #### [facility] [address] [place] [address] Ketones (U) [Mass/Vol] TRACE Invalid Interpretation Code Negative [facility] Comment on above: Performed By: #### 1 9128444, 3310528 #### [facility] [address] [place] [address] Lincoln.plasma/Lincoln .RBC (Bld) [Mass ratio] >75 Abnormal 0-3 [facility] Comment on above: Performed By: #### 1 8028250, 3377678 #### [facility] [address] [place] [address] Nitrite Ql (U) Positive Abnormal Negative [facility] Comment on above: Performed By: #### 1 7601043, 0833348 #### [facility] [address] [place] [address] pH (U) 7.0 [pH] Invalid Interpretation Code 5.0-9.0 [facility] Comment on above: Performed By: #### 1 9474339, 1587581 #### [facility] [address] [place] [address] Protein (U) [Mass/Vol] 3+ Abnormal Negative [facility] Comment on above: Performed By: #### 1 6653964, 6036052 #### [facility] [address] [place], [place] [address] Specific gravity (U) [Rel density] 1.015 Invalid Interpretation Code 1.005-1.03 0 [facility] Comment on above: Performed By: #### 1 0310017, 2107015 #### [facility] [address] [place] [address] Type of Urine collection method Clean Catch Normal [facility] Comment on above: Performed By: #### 1 8562326, 2474940 #### [facility] [address] [place] [address] Urobilinogen Qn (U) 1.0 {Terry'U}/dL Normal 0.0-1.0 [facility] Comment on above: Performed By: #### 1 5688563, 0874238 #### [facility] [address] [place] [address] WBC Auto Ql (U) 1+ Abnormal Negative [facility] Comment on above: Performed By: #### 1 4076087, 0220510 #### [facility] [address] [place] [address] WBC LM.HPF (Urine sed) [#/Area] See Comment Normal 0-5 [facility] Comment on above: Result Comment: POSS IBLY PRESENT BUT OBSCURED BY COPIOUS AMOUNT OF RBCS Performed By: #### 1 0781459, 7334366 #### [facility] [address] [place] [address] URINALYSISOrdered By: Luis Enrique wiley on 02-17-2022 Bacteria LM Ql (Urine sed) SEE COMMENT Invalid Interpretation Code [facility] UA Auto SS Comment on above: Result Comment: POSS IBLY PRESENT BUT OBSCURED BY COPIOUS AMOUNT OF RBCS Bilirubin Ql (U) Negative (02/17/22 2:09 PM) Normal Negative [facility] UA Auto SS Clarity (U) Cloudy *ABN* (02/17/22 2:09 PM) Invalid Interpretation Code Clear [facility] UA Auto SS Color (U) Red *ABN* (02/17/22 2:09 PM) Invalid Interpretation Code Yellow [facility] UA Auto SS Epithelial cells.squamous LM.HPF (Urine sed) [#/Area] See Comment 2 (02/17/22 2:09 PM) Normal 0-2 [facility] UA Auto SS Comment on above: Result Comment: POSS IBLY PRESENT BUT OBSCURED BY COPIOUS AMOUNT OF RBCS Glucose Test strip (U) [Mass/Vol] Negative (02/17/22 2:09 PM) Normal Negative [facility] UA Auto SS Hemoglobin Ql (U) 3+ *ABN* (02/17/22 2:09 PM) Invalid Interpretation Code Negative [facility] UA Auto SS Ketones (U) [Mass/Vol] Trace *NA* (02/17/22 2:09 PM) Invalid Interpretation Code Negative [facility] UA Auto SS Lincoln.plasma/Lincoln .RBC (Bld) [Mass ratio] >75 /HPF Invalid Interpretation Code 0-3/HPF [facility] UA Auto SS Nitrite Ql (U) Positive *ABN* (02/17/22 2:09 PM) Invalid Interpretation Code Negative [facility] UA Auto SS pH (U) 7.0 *NA* (02/17/22 2:09 PM) Invalid Interpretation Code 5.0 - 9.0 [facility] UA Auto SS Protein (U) [Mass/Vol] 3+ *ABN* (02/17/22 2:09 PM) Invalid Interpretation Code Negative [facility] UA Auto SS Specific gravity (U) [Rel density] 1.015 *NA* (02/17/22 2:09 PM) Invalid Interpretation Code 1.005 - 1.030 [facility] UA Auto SS UA Spec Desc Clean Catch (02/17/22 2:09 PM) Normal [facility] UA Auto SS Urobilinogen Qn (U) 1.3193771 {Terry'U}/dL Normal 0.0 - 1.0 EU/dL [facility] UA Auto SS WBC Auto Ql (U) 1+ *ABN* (02/17/22 2:09 PM) Invalid Interpretation Code Negative [facility] UA Auto SS WBC LM.HPF (Urine sed) [#/Area] See Comment 3 (02/17/22 2:09 PM) Normal 0-5 [facility] UA Auto SS Comment on above: Result Comment: POSS IBLY PRESENT BUT OBSCURED BY COPIOUS AMOUNT OF RBCS eGFRon 02-17-2022 GFR/1.73 sq M.predicted among blacks MDRD (S/P/Bld) [Vol rate/Area] 59 mL/min/1.73 m2 Normal >=59 [facility] Comment on above: Order Comment: Order added by Discern Expert. Result Comment: eGFR is race adjusted. AA=. Performed By: #### 2 902028, 6643590, 32087742, 68953192, 0939790 ####[facility] [address] [place] [address] GFR/1.73 sq M.predicted among non-blacks MDRD (S/P/Bld) [Vol rate/Area] 49 mL/min/1.73 m2 Low >=59 [facility] Comment on above: Order Comment: Order added by Discern Expert. Result Comment: Geodesist swathi kidney disease could be indicated at eGFR's of less than 60 mL/min/1.73m2. Kidney failure is indicated at less than 15 mL/min/1.73m2. Performed By: #### 2 984148, 9835800, 94506354, 52634104, 7624460 ####[facility] [address] [place] [address] XR Spine Lumbar 4+ Views*on 02-10-2022 XR Spine Lumbar 4+ Views* COMPARISON: None. Lumbar spine FINDINGS: There is no worrisome bone destruction or pathologic calcifications. The bones are demineralized. There is grade 2 anterolisthesis of L4 on L5 and there is levoscoliosis with a Webb angle measurement of 35?? between L1 and L4. There is no loss of vertebral body height. There are large marginal arthritis of the lumbar spine along the right side appearing there is disc space at every level. The SI joints are symmetric. The soft tissues are within normal limits. There are no radiopaque foreign bodies. IMPRESSION: There are severe degenerative changes of the lumbar spine. Report reported and signed by JACKLYN KOO on 02/11/2022 0917 Normal [facility] Ambulatory Visit Summaryon 0 02-01-2022 Ambulatory Visit Summary TAURUS GARCIA :1945 Visit Date:02/01/2022 Ambulatory Visit Instructions Your Diagnosis Bladder cancer BPH (benign prostatic hyperplasia) Urge incontinence Gross hematuria Your Care Team Attending Physician - Autumn Molina MD, Yoko Hair Primary Care Physician - SARBJIT BRIDGES, KOMAL Hamlin This Is Your Medications List ciprofloxacin (Cipro 500 mg Tab) Contact prescribing physician if questions or concerns apixaban (Eliquis 5 mg oral tablet) baclofen (baclofen 10 mg Tab) furosemide (furosemide 20 mg Tab) gabapentin (gabapentin 300 mg Cap) hydrALAZINE hydrochlorothiazide-triamt erene (hydrochlorothiazide-triam terene 25 mg-37.5 mg Cap) lisinopril (lisinopril 20 mg Tab) multivitamin (Multi Vitamins oral tablet) nebivolol (nebivolol 10 mg Tab) omega-3 polyunsaturated fatty acids (Fish Oil) potassium chloride (potassium chloride 10 mEq Cap-ER) predniSONE (predniSONE 10 mg Tab) pyridostigmine (pyridostigmine 60 mg Tab) simvastatin (simvastatin 40 mg Tab) Procedures Performed Cystoscopy (12/27/2021), Transurethral water vapor ablation of prostate (02/16/2017), Cardiac catheterization, CE - Cataract extraction. Discharge Vitals Heart Rate (Peripheral) 72 Respiratory Rate 16 Blood Pressure 133/43 Medications What How Much When Instructions Unchanged ciprofloxacin (Cipro 500 mg Tab) 1 Tablets By Mouth Every day take 1 day prior to procedure and 1 tab after procedure Unchanged apixaban (Eliquis 5 mg oral tablet) 1 Tablets By Mouth 2 times a day Contact prescribing physician if questions or concerns Unchanged baclofen (baclofen 10 mg Tab) tab(s) By Mouth 3 times a day Contact prescribing physician if questions or concerns Unchanged furosemide (furosemide 20 mg Tab) 1 Tablets By Mouth Every day Contact prescribing physician if questions or concerns Unchanged gabapentin (gabapentin 300 mg Cap) 1 Capsules By Mouth Every day Contact prescribing physician if questions or concerns Unchanged hydrALAZINE 50 Milligram Contact prescribing physician if questions or concerns Unchanged hydrochlorothiazide-triamt erene (hydrochlorothiazide-triam terene 25 mg-37.5 mg Cap) 1 Capsules By Mouth Every day Contact prescribing physician if questions or concerns Unchanged lisinopril (lisinopril 20 mg Tab) 1 Tablets By Mouth Every day Contact prescribing physician if questions or concerns Unchanged multivitamin (Multi Vitamins oral tablet) By Mouth Every day Contact prescribing physician if questions or concerns Unchanged nebivolol (nebivolol 10 mg Tab) 1 Tablets By Mouth Every day Contact prescribing physician if questions or concerns Unchanged omega-3 polyunsaturated fatty acids (Fish Oil) By Mouth Contact prescribing physician if questions or concerns Unchanged potassium chloride (potassium chloride 10 mEq Cap-ER) By Mouth Contact prescribing physician if questions or concerns Unchanged predniSONE (predniSONE 10 mg Tab) 1 Tablets By Mouth Every day Contact prescribing physician if questions or concerns Unchanged pyridostigmine (pyridostigmine 60 mg Tab) By Mouth Contact prescribing physician if questions or concerns Unchanged simvastatin (simvastatin 40 mg Tab) 1 Tablets By Mouth Contact prescribing physician if questions or concerns Allergies No Known Medication Allergies Problems Ongoing - Any problem that you are currently receiving treatment for. Bladder mass BPH (benign prostatic hyperplasia) Calcaneal spur Gross hematuria Hypercholesteremia Hypertension Impaired glucose tolerance test Lumbosacral spondylosis without myelopathy Macular edema Myasthenia gravis Obesity Obstructive apnea Obstructive sleep apnea, adult Pulmonary embolism Radiculopathy Education Materials Bladder Cancer Bladder cancer is an abnormal growth of tissue in the bladder. The bladder is the balloon-like sac in the pelvis. It collects and stores urine that comes from the kidneys through the ureters. The bladder wall is made of layers. If cancer spreads into these layers and through the wall of the bladder, it becomes more difficult to treat. What are the causes? The cause of this condition is not known. What increases the risk? The following factors may make you more likely to develop this condition: ? Smoking. ? Workplace risks (occupational exposures), such as rubber, leather, textile, dyes, chemicals, and paint. ? Being white. ? Your age. Most people with bladder cancer are over the age of 55. ? Being male. ? Having chronic bladder inflammation. ? Having a personal history of bladder cancer. ? Having a family history of bladder cancer (heredity). ? Having had chemotherapy or radiation therapy to the pelvis. ? Having been exposed to arsenic. What are the signs or symptoms? Initial symptoms of this condition include: ? Blood in the urine. ? Painful urination. ? Frequent bladder or urine infections. ? (more content not included)... Normal [facility] Patient Educationon 02-02-20 Patient Education Oncology Bladder Cancer Bladder cancer is an abnormal growth of tissue in the bladder. The bladder is the balloon-like sac in the pelvis. It collects and stores urine that comes from the kidneys through the ureters. The bladder wall is made of layers. If cancer spreads into these layers and through the wall of the bladder, it becomes more difficult to treat. What are the causes? The cause of this condition is not known. What increases the risk? The following factors may make you more likely to develop this condition: ? Smoking. ? Workplace risks (occupational exposures), such as rubber, leather, textile, dyes, chemicals, and paint. ? Being white. ? Your age. Most people with bladder cancer are over the age of 55. ? Being male. ? Having chronic bladder inflammation. ? Having a personal history of bladder cancer. ? Having a family history of bladder cancer (heredity). ? Having had chemotherapy or radiation therapy to the pelvis. ? Having been exposed to arsenic. What are the signs or symptoms? Initial symptoms of this condition include: ? Blood in the urine. ? Painful urination. ? Frequent bladder or urine infections. ? Increase in urgency and frequency of urination. Advanced symptoms of this condition include: ? Not being able to urinate. ? Low back pain on one side. ? Loss of appetite. ? Weight loss. ? Fatigue. ? Swelling in the feet. ? Bone pain. How is this diagnosed? This condition is diagnosed based on your medical history, a physical exam, urine tests, lab tests, imaging tests, and your symptoms. You may also have other tests or procedures done, such as: ? A narrow tube being inserted into your bladder through your urethra (cystoscopy) in order to view the lining of your bladder for tumors. ? A biopsy to sample the tumor to see if cancer is present. If cancer is present, it will then be staged to determine its severity and extent. Staging is an assessment of: ? The size of the tumor. ? Whether the cancer has spread. ? Where the cancer has spread. It is important to know how deeply into the bladder wall cancer has grown and whether cancer has spread to any other parts of your body. Staging may require blood tests or imaging tests, such as a CT scan, MRI, bone scan, or chest X-ray. How is this treated? Based on the stage of cancer, one treatment or a combination of treatments may be recommended. The most common forms of treatment are: ? Surgery to remove the cancer. Procedures that may be done include transurethral resection and cystectomy. ? Radiation therapy. This is high-energy X-rays or other particles. This is often used in combination with chemotherapy. ? Chemotherapy. During this treatment, medicines are used to kill cancer cells. ? Immunotherapy. This uses medicines to help your own immune system destroy cancer cells. Follow these instructions at home: ? Take zevx-gak-ugirtfd and prescription medicines only as told by your health care provider. ? Maintain a healthy diet. Some of your treatments might affect your appetite. ? Consider joining a support group. This may help you learn to cope with the stress of having bladder cancer. ? Tell your cancer care team if you develop side effects. They may be able to recommend ways to relieve them. ? Keep all follow-up visits as told by your health care provider. This is important. Where to find more information ? [employer]: www.cancer.org ? National [employer] (NCI): www.cancer.gov Contact a health care provider if: ? You have symptoms of a urinary tract infection. These include: ? Fever. ? Chills. ? Weakness. ? Muscle aches. ? Abdominal pain. ? Frequent and intense urge to urinate. ? Burning feeling in the bladder or urethra during urination. Get help right away if: ? There is blood in your urine. ? You cannot urinate. ? You have severe pain or other symptoms that do not go away. Summary ? Bladder cancer is an abnormal growth of tissue in the bladder. ? This condition is diagnosed based on your medical history, a physical exam, urine tests, lab tests, imaging tests, and your symptoms. ? Based on the stage of cancer, surgery, chemotherapy, or a combination of treatments may be recommended. ? Consider joining a support group. This may help you learn to cope with the stress of having bladder cancer. This information is not intended to replace advice given to you by your health care provider. Make sure you discuss any questions you have with your health care provider. Document Released: 08/09/2004 Document Revised: 07/20/2018 Document Reviewed: 07/11/2017 [employer] Patient Education ? 2019 [employer]. 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 He had a TUR of his bladder tumor on 01/13/2022. Is here today for his first postop visit. [facility] Staff Pascual is here today for a 2 week follow up TURBT done on 01/12/22. Pt is here today to go over pathology, path shows invasive urothelial carcinoma high grade, small fragment of muscularis propria is present in this specimen and is uninvolved by carcinoma. Previous DX: Bladder mass, gross hematuria, BPH. Dysuria: _yes some burning since procedure Incomplete bladder emptying: _Denies Hematuria: _yes Frequency: _every few hours Urgency: _moderate Nocturia: _3-4 times a night Stream: _weak stream Leaking: _occ Post void dripping: _occ Wearing pads/ Depends: _yes changes 2-3 times a day Urge incontinence: _mild to moderate Stress incontinence: _Denies Incontinence without Sensory Awareness: _Denies Abdominal pain: _Denies Flank pain: _Denies Sexual complaints: _ History of Present Illness reviewed medical history, OP report, Path report no associated fever, chills, pain . Review of Systems PHQ Score Initial Depression Screen Score: 0 ROS - Provider Constitutional: denies weight loss, denies hot flashes. Eyes: denies eye problems. Gastrointestinal: denies nausea, denies vomiting. Cardiovascular: denies chest pain or angina. Integumentary: no dryness Musculoskeletal: denies musculoskeletal symptoms. ENMT: denies otolaryngeal symptoms. Respiratory: no shortness of breath. Heme/Lymph: denies easy bleeding tendency, denies easy bruising tendency. Psychiatric: no confusion, no anxiety. Genitourinary: denies dysuria, mild hematuria, denies discharge, moderate urinary frequency, denies urinary hesitancy, moderate nocturia, moderate incontinence, denies genital sores, denies decreased libido, and denies erectile dysfunction. Physical Exam Vitals & Measurements HR: 72(Peripheral) RR: 16 BP: 133/43 General Appearance: alert, no distress, well nourished, well developed male. Head: normocephalic . Eyes: normal orbit and globe. ENMT: normal examination of external ears. Chest: Lungs CTA, respirations non labored. Cardiovascular: regular rate and rhythm. Abdomen: soft, non distended, no tenderness, no mass or organomegaly, no hernia. Genitourinary: normal scrotum, normal testes, normal urethra, normal epididymis, normal vas deferens/spermatic cord. Flank Pain: none. Bladder: nonpalpable. Penis: normal shaft, normal glans. Lymph Nodes: unremarkable palpation of the cervical area. Skin: warm, dry, no bruising. Psychiatric: cooperative, affect appropriate for age, normal judgement, euthymic mood. Assessment/Plan This patient has a grade 3 T1 TCC identified 01/12/2022. He has been started on Pyridium because of irritative voiding symptoms. His urine today is grossly bloody. He has frequency and urgency and dysuria. He will be scheduled for cystoscopy with transurethral resection of the remainder of his bladder tumor and instillation of Mitomycin-C. Patient understand that he may require more than 1 resection of the bladder tumor before is completely removed. He also understands that this is a superficially invasive bladder tumor. No muscle invasion was identified on the pathology specimen. More bladder muscle will be resected on next procedure in an effort to better determine if there is muscle invasion. Meissen see will be used following a transurethral section of the bladder tumor. The procedure, risk, alternatives and potential complications have been discussed with the patient. All of his questions were answered. Informed consents been obtained. 1. Malignant neoplasm of lateral wall of bladder (C67.2: Malignant neoplasm of lateral wall of bladder) s/p TURBT done 01-12-22. Pathology Report Shows invasive carcinoma- High Grade. Will schedule patient for Cysto/ TURBT/ with Mitomycin instillation to remove remaining of bladder tumor. Risk's of procedure discussed with patient including bleeding, infection, anesthesia. patient is in agreement with this plan. CT done 12/15/21 was negative for any metastatic disease. 2. BPH (benign prostatic hyperplasia) (N40.0: Benign prostatic hyperplasia without lower urinary tract symptoms) patient has weak stream, gets up 3-4x per night and has urinary urgency. Patient is not currently on any BPH medications at this time. 3. Urge incontinence (N39.41: Urge incontinence) patient has leaking before he can reach the restroom, ongoing for awhile. patient does wear pads daily and changes 2-3x per day. Will start patient on pyridium to help with urinary symptoms. 100mg Q12 4. Gross hematuria (R31.0: Gross hematuria) intermittently. moderate blood. Orders: phenazopyridine, 100 mg = 1 tab(s), Oral, q12hr, # 30 tab(s), Refills(s) 0, Pharmacy: [id number] Urology Procedure (more content not included)... Normal [facility] Comment on above: Result Comment: Elec tronically Signed By: Autumn Molina MD, Yoko Hair\.br\Date and Time Signed: 02/01/22 11:54 EDT\.br\Electronically Co-Signed By: Jolly Justice\.br\Date and Time Co-Signed: 02/01/22 11:50 EDT Operative Reporton 2 Operative Report [id number]#[id number]:127 [facility] Coding Summary.on 01-25-2022 Coding Summary. [id number] Gh0bWw +PGhlYWQ+XR8ZIELrF14tjOFep X5IM9uFZH5VMKEUNSNMRF8AIR8 hcBH5YSccU7VorzJo LjgxbZIdAN24MAr7OZV8lHclPC ydaM7ifRUbX9d7LbOsKX98uA52 DOrnZUBeMbH8TcMfamcrxTNn W1ioJeLhlEJaVqr+PHRhYmxlIH inCRHwSKemSUWfJyWewWblIR7n Uj1gSVMlSRPawRidvMMmFvFp z7dpKTSwIGpzXR5kyDnkX1VmuE X5NGHiy3a8Vr40nEE+PHRkIHN0 lGsoYCklg868GtCcb2ujMFV0 gBVeRWruSPX8J03ja3D5YKDwEN ScROB5xLX7uX8ilMfehjxfV9Sx xFHbTvL0SJI7oBUobO9drIrx kgjcuD5vBcw+L91MIK4KYVYKIU 9ALqg3E0FqPdgujOI+XG56PBOe YK39xUYisPFuj8eshPl2RlFc RUCrLBR6qOzyHSkti6YqVGBmG9 5vsFDsb5N7ZPKukSbpdTYxKzRt oAT3iP1kTNqjwzfoi5sbezxx Hrhay9eknb27zC10T96tCJgfCG YvFQI9IWFjZCKrgKpdfx1ogZ5r Ii8+YJirt1hjq9uyoMd2GpFd FSDvpfJjmHebDZF4c1IpAt11Y1 JnsOvov1FmTol1ia71fTZff7M7 yAR6VUskTAQbjM4uQEjpDzV4 XYWoUwWcvJ47hCLhWIokSu5qgA oyzRkdNQ2aFJKncchsXMAfgA8h GEVrsUCtgHfoUZ8tDAJzkota i149EtRfJZF6EWZxaEZoN9HiaU 9uFeXnPABjOPAxV1ThlIHhJDjm J546OBcwNvF5ITDtxiPiT8Wz DPAfhDaxKsF1r3L4Rr0Fz0Xbuu fqOPO7WBuyCQC3BrG4TbGbGlU1 N2UsFko5RTBxcJqjIV8rB4Ij SPMqhuxgemthmRI7OUBkATGopQ 30pDTxXYgtOc6sy9Z8m690MAOd EQMtmJ06Xl2rtDhpDOLhzJAU yT9buyhjc8ntizqiTbVgUCOxOF i9JGk2RQNxaFfxFvKzZKR1BdO1 ADW6vPGovN8fxXvpwyvnxY3j Oyc+H56giA3kRZV1ZRV7xunuWA WdnlBiPI58GX52P1EtFtpruSXw bGU+PQKgpePwoKhnJM0nZuHp r7cvb6UjBMicY6FyOYRpZQpvYy p2GETqIGB4fFV6mU2aNAYvZOoq b6R1fXO8C8BqpvDwqb3av4bd OCYvOXhyA68jvIDrk2X2FPSalA Y5GLCnoMzeFsUckS20Qoq+PGNv gNecf2LlIqqqv6xoe4kliRr9 YfIuQRXldgZzmWeuVKF9l6ZxMp 44V30tHHixKFXmFPCtBGSdEBXt jYjqdb6vaL5lEi5+PGNvbCB3 yJW7zO7vBZNsLoV3DWyvJ941Vj TnoTNlCncra8fos7wjwCx5UsQj FTNwzzGtdZfvANJ7b4EbYj11 P07eUYvrMOGgEZJkJAVzYSJuuP wvdw7bbE5fFs6+MP5ee9cabt62 jV07rJY+IQGwTHV9rQdsLTuv LLPeiW4uVTleYuD6GXIcBiOgrO 93tORuZUujEy9heUlevJgwWM7g GDSmuuzvf601RfNdf2mvPWGf oMFhUBwkXRB5T47zx4M3BLDuCG NlIIJ3gOO1xS8ouGsavwcbbPMs eOkevvJzwEhuDPrfPYxsO738 IHRvcDsnPlBhdGllbnQgTmFtZT x8M3EfYio3BLRseVghOT0ucIQk SDwoCl5jsKweqStlWB3aCMDy rgazw643VsJwe6nyCCKijELkOH yaLCX1Q56mv8K1BBPcGPFgLIF0 qIF4qY6rpLumotocsUUoqIva bfJhqCmsGGypYPgrG834IKHpkE nvRpXhcgFrFVUwbHN5DV59NM16 sXSux8T1fYD3B6YiMSJklzbn rbzfkBB9BZMzGVMnqG99Cn6fiS nfWy5oGBTgNTS4MEHubOIfL6Ww qJ1lIzQgMCVvFXSmF0CgxUZt FRacI016CPpcKaY0SOJfrgXxA9 JiFVAvtApqPcS4p0T7It8JW6J4 UC98XE72uWWcn1L8vOE8A6Fk NGHimsiymimczTJ0NEQvMLWomB 50Hh9ohAahBz5pSMFhMGM0LVOz mVKqT2GhvS7mYxFgAGZxXPCk U6EkmCOcEOryB402MVzdChE1WT XyptKsO3TpTXBroTheAaM6s3D8 Nl5IYSd3VC25SC21oOIir9T0 fEI5X9PsMSKdvsnwmritdXC0HG ZxDAOydX41Pz9gyGmsHl9rPHHq JXL5XRGtqEHpG7IaeG9iLcCf JJJrRVAjR8YzeYYsWTqfA732OX kcYoN4SUVitzReG5HeWXDegVen UrP4g5U0Uo1OJJTpQA61IJL7 aQF5TM43UX82F1VnBpjrcSUraV U+PHRhYmxlIHdpZHRoPScxMDAl DaNqvYhpRR2dSz1vXYNhAPSv lYxnzDMgCnFfq4bwJGHySWyrWQ 7geTcqL4VkqLY6UGRgc3s4Pa86 B84jY3SusBM+VQKroFD2gNN8 dC6kRoLqCmJ8PIuoA591AoGuhX TtRejtu9mbh7hlsNg0FnV5AEHy guKtcCqgEXK7l6AaHn21F13r IHdpZHRoPSIxNSUiIHZhbGlnbj 1vrI1cTc2+OFAldWS2uEG4tL5r FmFxOiC7FAecC858GoNndSKq Hutat3cly3proHz5VsCpEZRlbr DxpJgiYYM6a8FyTz85Z8ZreMay d5AcBek0is90xEJjv2Q0xZV3 Y4PiHFJqzmhrcBMdfJlnCK6kKW AvkejjBQKlqH2wVDMtB5x2TtQx NcA7PLwgU9CccgM6OFLlyFOk PWvtEEU4F46rl5D0TPVvQYRdIX H6zST9aT7hgIpgyiikrTIfzUqn tcSjeSuaZKnvJMfwG153PHQr bWcwCULtmG4kHGYzgHPloYbaID 9kKVSosvioDkRDB17JMcaaW6kH SfqDNbFZTX98ZR17iJYdb9N5 yNC8F5FsALJdaxueplrjmXD8IU PgZRFcpA24nYRlVRiuHn6pv3C2 h099QZEwOAQiiF31Sc6xuLcw YAUnnESDeW5cqfwxx1yhbsdaNw JlWIEwGRs8GUc1BUMsvAetDoGy HKH5ScS3TXB3iSArxK0gdFln clicdK6tOhh+EUXtJHXnOGt6OI wvdGQ+QWZnMEN7wEyoMQvcQBOk qV5iRWTiA1a6OmKiEpH6USod Y5BcKZQeejmlEt90jW7sJpNlHy G8FOxqN4CqomQ7IARueIGdQOly RSX2U54rl5Y6GMOwJGHeEQS6 bVO7kW5cyDflsasokXTnrAjlmw VtgFgkLHteAPbaK398GHFluVqt Trc4YXdrICIsFK98QN29zQQn e3W0nXZ7D1TjWYKngnnygubztW F7SWAqUARvtW14nCKlZKevNs4m c8R7v274URXaJTZwhU59Hp5q sTygHHUejQSBuN7umgxai0sukw hkMxVpXPVhOXf1AXd8CPVroKyl AmDcFTL1KvN6CYH4yIKqkQ8d gMmpvaaucJ6hTxz+TWFsZTwvdG Q+GGElQWC1xCknXOysTVWxwQ4l UZDxM3d4LuKyFkR7OAfiU3Os UWYoxeicSw43yX0fOdPyIoY9RT umY3OysaM6IDUkjULbXAftSPO0 A87zu6T3AIHyKVLrNJJ4vWL0 gL0tvGffgjoveGJcfAtbkuKuaQ ljVGuwJZnbO122PDQppAjwFblu GcGVlu5hGE9nLracvIH+PC90 lr78R0XiSgjgOkx4JCKkTDJ3gU V7lM2aVMEmSMyvx9X2wOM8G1Mx maUcwp1cj4ekDBJvCFsqE40n zZLbd5K2ZLCryWC4JNVqiTvyHd ZhxN90Xuw+TBBmyCnsr0UxKiyc a1fpl7cogUu8RaWgFBGtfgLk bUxiIAE0r9DzGh75A25dARaeLR MrZSSqQWMsDABrmRquio4fnV8b Ii8+EJDghGA5dXZ1rP1lJdKo TmC0JJbnD693KxBcwKJjEywok2 gkb1cxrWf0PqObALBokiEmdQpx GKF1u9KkLt55Z4AzpHzyq5Gc Neq6wq00gNOxx3B2yXP5C7IsKN HpgqsfwDJivEgoXK4dWEAojeyl NROouV0dKGOxI8d0ZvZnJpT5 CNfjG8DqruR1AWHuhUHwQAUzeL ZMfS3vaxcye8stghveUsZnBHGx EOy8QGt5QVEqiJfpMiVuRKC8 YzG9RLD0wMSdiP3ovHnmzljdmP 9wOyc+KYg5h0mgrSHlYG0jvWQ0 EF67DS16iLDev4W7wWS2V3Bp HTTbqklbdsceyAJ7GBMsAGLnnQ 64Hu2vhRbiFi5eFXKdMFN4QPWu pWUwK0NmqL9eOjGkWJEmSBXp P7BoqVDwTVooO386ICtpBoY4GI FzcrYzL3SkJPYtjWnzNlR2j5J1 Ee8SGZ28FI11VW81mSTqj6P0 hAM9G6EoXSPxjoxcioujtKX7VZ LiDOLgjK79Iu3ogChoZm4uQBUm GBC3BGTnvAZuI2VsbQ8tGfGr DGLxYNAvV7GurESiIVmlO830HZ qoMxC3HQGcvaGpG7NtGBJgpTxa IkB1k9B4Vc5YBp07MX13QJ42 eGIef8S4wLK3F8FjPHQpbhkvyr qfbKW6IXQgATRyuF90Ey4gzWxw Li4wRGZyNWA8YNJbgLTlA8Cv rU2nSbZfSZBjFLTkB9UcbVPxOL zwI024YVuvOhY3YMVzsiCdQ2Ky JGCkiWxrWiR0m8B6Wz5CGSld wji7I2ArAylfuVG+XK66CXFcWD 33cFCvnDNoo0ghnSp3BkCkECRi VEQ9tTqnABraz9GoLGOnK37i bGFw (more content not included)... [facility] Reminders 01-24-2022 Reminders - From: Miller Shirley MA To: EU - Clinical; Sent: 01/21/2022 14:39:52 EDT Show up: 01/24/2022 08:00:00 EDT Subject: Ambulatory Reminder Reminder/Recall urine culture addressed. NICK Normal [facility] C Urineon 01-23-2022 Bacteria identified Cx Nom (U) Microbiology PROCEDURE: Urine Culture [R1] SOURCE: U Random BODY SITE: COLLECTED DATE/TIME: 01/21/2022 14:36 EDT RECEIVED DATE/TIME: 01/21/2022 18:12 EDT START DATE/TIME: 01/21/2022 18:12 EDT FREE TEXT SOURCE: JIL STEVENSON, MASHA LEY PA-C, MASHA Nichols FINAL REPORTS Final Report [] Verified Date/Time: 01/23/2022 10:37 EDT <10,000 cfu/ml Mixed skin contaminants Performing Locations R1: This test was performed at: [facility], [address] [place] [address], [facility]- , [place], [facility] Comment on above: Performed By: #### 2 [id number] ####[facility] [address] [place] [address] Ambulatory Visit Summaryon 0 01-21-2022 Ambulatory Visit Summary TAURUS GARCIA Carrie :1945 Visit Date:01/21/2022 Ambulatory Visit Instructions Your Diagnosis Urgency of urination Tests Performed Urnls Dip Stick Auto w/o Microscopy POC 82618 Your Care Team Attending Physician - Autumn Molina MD, Yoko Hair Primary Care Physician - SARBJIT BRIDGES, KOMAL Hamlin This Is Your Medications List apixaban (Eliquis 5 mg oral tablet) baclofen (baclofen 10 mg Tab) ciprofloxacin (Cipro 500 mg Tab) furosemide (furosemide 20 mg Tab) gabapentin (gabapentin 300 mg Cap) hydrALAZINE hydrochlorothiazide-triamt erene (hydrochlorothiazide-triam terene 25 mg-37.5 mg Cap) lisinopril (lisinopril 20 mg Tab) multivitamin (Multi Vitamins oral tablet) nebivolol (nebivolol 10 mg Tab) omega-3 polyunsaturated fatty acids (Fish Oil) potassium chloride (potassium chloride 10 mEq Cap-ER) predniSONE (predniSONE 10 mg Tab) pyridostigmine (pyridostigmine 60 mg Tab) simvastatin (simvastatin 40 mg Tab) Procedures Performed Cystoscopy (12/27/2021), Transurethral water vapor ablation of prostate (02/16/2017), Cardiac catheterization, CE - Cataract extraction. What to do next Scheduled Follow-Up Appointments Monday 10:30 AM EDT With: Autumn Molina MD, Yoko Hair Where: [facility] Pathology Noteon 01-19-2022 Pathology Note [id number]:127 [facility] Ambulatory Visit Summaryon 0 01-18-2022 Ambulatory Visit Summary TAURUS GARCIA :1945 Visit Date:01/18/2022 Ambulatory Visit Instructions Your Care Team Attending Physician - Autumn Molina MD, Yoko Hair Primary Care Physician - KOMAL NGUYEN MD This Is Your Medications List apixaban (Eliquis 5 mg oral tablet) baclofen (baclofen 10 mg Tab) ciprofloxacin (Cipro 500 mg Tab) furosemide (furosemide 20 mg Tab) gabapentin (gabapentin 300 mg Cap) hydrALAZINE hydrochlorothiazide-triamt erene (hydrochlorothiazide-triam terene 25 mg-37.5 mg Cap) lisinopril (lisinopril 20 mg Tab) multivitamin (Multi Vitamins oral tablet) nebivolol (nebivolol 10 mg Tab) omega-3 polyunsaturated fatty acids (Fish Oil) potassium chloride (potassium chloride 10 mEq Cap-ER) predniSONE (predniSONE 10 mg Tab) pyridostigmine (pyridostigmine 60 mg Tab) simvastatin (simvastatin 40 mg Tab) Procedures Performed Cystoscopy (12/27/2021), Transurethral water vapor ablation of prostate (02/16/2017), Cardiac catheterization, CE - Cataract extraction. Medications What How Much When Instructions Unchanged apixaban (Eliquis 5 mg oral tablet) 1 Tablets By Mouth 2 times a day Unchanged baclofen (baclofen 10 mg Tab) tab(s) By Mouth 3 times a day Unchanged ciprofloxacin (Cipro 500 mg Tab) 1 Tablets By Mouth Every day take 1 day prior to procedure and 1 tab after procedure Unchanged furosemide (furosemide 20 mg Tab) 1 Tablets By Mouth Every day Unchanged gabapentin (gabapentin 300 mg Cap) 1 Capsules By Mouth Every day Unchanged hydrALAZINE 50 Milligram Unchanged hydrochlorothiazide-triamt erene (hydrochlorothiazide-triam terene 25 mg-37.5 mg Cap) 1 Capsules By Mouth Every day Unchanged lisinopril (lisinopril 20 mg Tab) 1 Tablets By Mouth Every day Unchanged multivitamin (Multi Vitamins oral tablet) By Mouth Every day Unchanged nebivolol (nebivolol 10 mg Tab) 1 Tablets By Mouth Every day Unchanged omega-3 polyunsaturated fatty acids (Fish Oil) By Mouth Unchanged potassium chloride (potassium chloride 10 mEq Cap-ER) By Mouth Unchanged predniSONE (predniSONE 10 mg Tab) 1 Tablets By Mouth Every day Unchanged pyridostigmine (pyridostigmine 60 mg Tab) By Mouth Unchanged simvastatin (simvastatin 40 mg Tab) 1 Tablets By Mouth Allergies No Known Medication Allergies Problems Ongoing - Any problem that you are currently receiving treatment for. Bladder mass BPH (benign prostatic hyperplasia) Calcaneal spur Gross hematuria Hypercholesteremia Hypertension Impaired glucose tolerance test Lumbosacral spondylosis without myelopathy Macular edema Myasthenia gravis Obesity Obstructive apnea Obstructive sleep apnea, adult Pulmonary embolism Radiculopathy Normal [facility] Lab Reportson 01-11-2022 Lab Reports [id number]:127 Normal [facility] Lab Reportson 01-10-2022 Lab Reports [id number]:127 Normal [facility] PROF CHEM 8 (BAS METB)on Anion gap [Moles/Vol] 12.8 mmol/L Normal [facility] Comment on above: Performed By: #### B MP #### [facility] [address] [place] [address] Dr. Chao Garcia Calcium [Mass/Vol] 9.4 mg/dL Normal 8.5-10.1 [facility] Comment on above: Performed By: #### B MP #### [facility] [address] [address] [address] Chao Garcia Chloride [Moles/Vol] 107 mmol/L Normal 98-107 [facility] Comment on above: Performed By: #### B MP #### [facility] [address] [address] [address] Chao Garcia CO2 [Moles/Vol] 27.6 mmol/L Normal 21.0-32.0 [facility] Comment on above: Performed By: #### B MP #### [facility] [address] [address] [address] Chao Garcia Creatinine [Mass/Vol] 1.47 mg/dL Critically high 0.70-1.30 [facility] Comment on above: Performed By: #### B MP #### [facility] [address] [address] [address] Chao Garcia EGFR-AF MICRONESIAN 56 mL/min/1.73m2 Critically low >=60 [facility] Comment on above: Performed By: #### B MP #### [facility] [address] [address] [address] Chao Garcia EGFR-NON AF MICRONESIAN 46 mL/min/1.73m2 Critically low >=60 [facility] Comment on above: Performed By: #### B MP #### [facility] [address] [address] [address] Chao Garcia Glucose [Mass/Vol] 142 mg/dL Critically high 74-106 [facility] Comment on above: Performed By: #### B MP #### [facility] [address] [address] [address] Chao Garcia Potassium [Moles/Vol] 3.4 mmol/L Critically low 3.5-5.1 [facility] Comment on above: Performed By: #### B MP #### [facility] [address] [address] [address] Chao Garcia Sodium [Moles/Vol] 144 mmol/L Normal 136-145 [facility] Comment on above: Performed By: #### B MP #### [facility] [address] [place], [place] [address] Dr. Chao Garcia Urea nitrogen [Mass/Vol] 33.0 mg/dL Critically high 7.0-18.0 [facility] Comment on above: Performed By: #### B MP #### [facility] [address] [place], [place] [address] Dr. Chao Garcia Urea nitrogen/Creatinine [Mass ratio] 22.4 mg/mg Normal [facility] Comment on above: Performed By: #### B MP #### [facility] [address] [place], [place] [address] Dr. Chao Garcia Consent for Procedure/Surger yon 01-04-2022 Consent for Procedure/Surgery [id number] Normal [facility] Ambulatory Visit Summaryon 0 12-27-2021 Ambulatory Visit Summary TAURUS GARCIA Carrie :1945 Visit Date:12/27/2021 Ambulatory Visit Instructions Your Diagnosis Gross hematuria BPH (benign prostatic hyperplasia) Bladder mass Your Care Team Attending Physician - Autumn Molina MD, Yoko Hair Primary Care Physician - SARBJIT BRIDGES, KOMAL Hamlin This Is Your Medications List Contact prescribing physician if questions or concerns apixaban (Eliquis 5 mg oral tablet) baclofen (baclofen 10 mg Tab) ciprofloxacin (Cipro 500 mg Tab) furosemide (furosemide 20 mg Tab) gabapentin (gabapentin 300 mg Cap) hydrALAZINE hydrochlorothiazide-triamt erene (hydrochlorothiazide-triam terene 25 mg-37.5 mg Cap) lisinopril (lisinopril 20 mg Tab) multivitamin (Multi Vitamins oral tablet) nebivolol (nebivolol 10 mg Tab) omega-3 polyunsaturated fatty acids (Fish Oil) potassium chloride (potassium chloride 10 mEq Cap-ER) predniSONE (predniSONE 10 mg Tab) pyridostigmine (pyridostigmine 60 mg Tab) simvastatin (simvastatin 40 mg Tab) Procedures Performed Cystoscopy (12/27/2021), Transurethral water vapor ablation of prostate (02/16/2017), Cardiac catheterization, CE - Cataract extraction. Discharge Vitals Heart Rate (Peripheral) 68 Blood Pressure 115/65 What to do next You Need to Schedule the Following Appointments Follow Up with Autumn Molina MD, Yoko Hair, URO When: Comments: schedule follow up after TURBT Where: [facility] [address], [place] [address]- Medications What How Much When Instructions Unchanged apixaban (Eliquis 5 mg oral tablet) 1 Tablets By Mouth 2 times a day Contact prescribing physician if questions or concerns Unchanged baclofen (baclofen 10 mg Tab) tab(s) By Mouth 3 times a day Contact prescribing physician if questions or concerns Unchanged ciprofloxacin (Cipro 500 mg Tab) 1 Tablets By Mouth Every day take 1 day prior to procedure and 1 tab after procedure Contact prescribing physician if questions or concerns Unchanged furosemide (furosemide 20 mg Tab) 1 Tablets By Mouth Every day Contact prescribing physician if questions or concerns Unchanged gabapentin (gabapentin 300 mg Cap) 1 Capsules By Mouth Every day Contact prescribing physician if questions or concerns Unchanged hydrALAZINE 50 Milligram Contact prescribing physician if questions or concerns Unchanged hydrochlorothiazide-triamt erene (hydrochlorothiazide-triam terene 25 mg-37.5 mg Cap) 1 Capsules By Mouth Every day Contact prescribing physician if questions or concerns Unchanged lisinopril (lisinopril 20 mg Tab) 1 Tablets By Mouth Every day Contact prescribing physician if questions or concerns Unchanged multivitamin (Multi Vitamins oral tablet) By Mouth Every day Contact prescribing physician if questions or concerns Unchanged nebivolol (nebivolol 10 mg Tab) 1 Tablets By Mouth Every day Contact prescribing physician if questions or concerns Unchanged omega-3 polyunsaturated fatty acids (Fish Oil) By Mouth Contact prescribing physician if questions or concerns Unchanged potassium chloride (potassium chloride 10 mEq Cap-ER) By Mouth Contact prescribing physician if questions or concerns Unchanged predniSONE (predniSONE 10 mg Tab) 1 Tablets By Mouth Every day Contact prescribing physician if questions or concerns Unchanged pyridostigmine (pyridostigmine 60 mg Tab) By Mouth Contact prescribing physician if questions or concerns Unchanged simvastatin (simvastatin 40 mg Tab) 1 Tablets By Mouth Contact prescribing physician if questions or concerns Allergies No Known Medication Allergies Problems Ongoing - Any problem that you are currently receiving treatment for. Bladder mass BPH (benign prostatic hyperplasia) Calcaneal spur Gross hematuria Hypercholesteremia Hypertension Impaired glucose tolerance test Lumbosacral spondylosis without myelopathy Macular edema Myasthenia gravis Obesity Obstructive apnea Obstructive sleep apnea, adult Pulmonary embolism Radiculopathy Education Materials Hematuria, Adult Hematuria is blood in the urine. Blood may be visible in the urine, or it may be identified with a test. This condition can be caused by infections of the bladder, urethra, kidney, or prostate. Other possible causes include: ? Kidney stones. ? Cancer of the urinary tract. ? Too much calcium in the urine. ? Conditions that are passed from parent to child (inherited conditions). ? Exercise that requires a lot of energy. Infections can usually be treated with medicine, and a kidney stone usually will pass through your urine. If neither of these is the cause of your hematuria, more tests may be needed to identify the cause of your symptoms. It is very important to tell your health care provider about any blood in your urine, even if it is painless or the blood stops without treatment. Blood in the urine, when it happens and then stops and then happens again, can be a symptom of a very serious c (more content not included)... Normal [facility] Patient Educationon 12-28-19 Patient Education Urology Hematuria, Adult Hematuria is blood in the urine. Blood may be visible in the urine, or it may be identified with a test. This condition can be caused by infections of the bladder, urethra, kidney, or prostate. Other possible causes include: ? Kidney stones. ? Cancer of the urinary tract. ? Too much calcium in the urine. ? Conditions that are passed from parent to child (inherited conditions). ? Exercise that requires a lot of energy. Infections can usually be treated with medicine, and a kidney stone usually will pass through your urine. If neither of these is the cause of your hematuria, more tests may be needed to identify the cause of your symptoms. It is very important to tell your health care provider about any blood in your urine, even if it is painless or the blood stops without treatment. Blood in the urine, when it happens and then stops and then happens again, can be a symptom of a very serious condition, including cancer. There is no pain in the initial stages of many urinary cancers. Follow these instructions at home: Medicines ? Take rqax-gph-ilbkrgt and prescription medicines only as told by your health care provider. ? If you were prescribed an antibiotic medicine, take it as told by your health care provider. Do not stop taking the antibiotic even if you start to feel better. Eating and drinking ? Drink enough fluid to keep your urine clear or pale yellow. It is recommended that you drink 3?4 quarts (2.8?3.8 L) a day. If you have been diagnosed with an infection, it is recommended that you drink cranberry juice in addition to large amounts of water. ? Avoid caffeine, tea, and carbonated beverages. These tend to irritate the bladder. ? Avoid alcohol because it may irritate the prostate (men). General instructions ? If you have been diagnosed with a kidney stone, follow your health care provider's instructions about straining your urine to catch the stone. ? Empty your bladder often. Avoid holding urine for long periods of time. ? If you are female: ? After a bowel movement, wipe from front to back and use each piece of toilet paper only once. ? Empty your bladder before and after sex. ? Pay attention to any changes in your symptoms. Tell your health care provider about any changes or any new symptoms. ? It is your responsibility to get your test results. Ask your health care provider, or the department performing the test, when your results will be ready. ? Keep all follow-up visits as told by your health care provider. This is important. Contact a health care provider if: ? You develop back pain. ? You have a fever. ? You have nausea or vomiting. ? Your symptoms do not improve after 3 days. ? Your symptoms get worse. Get help right away if: ? You develop severe vomiting and are unable take medicine without vomiting. ? You develop severe pain in your back or abdomen even though you are taking medicine. ? You pass a large amount of blood in your urine. ? You pass blood clots in your urine. ? You feel very weak or like you might faint. ? You faint. Summary ? Hematuria is blood in the urine. It has many possible causes. ? It is very important that you tell your health care provider about any blood in your urine, even if it is painless or the blood stops without treatment. ? Take dnhu-vwu-szldawc and prescription medicines only as told by your health care provider. ? Drink enough fluid to keep your urine clear or pale yellow. This information is not intended to replace advice given to you by your health care provider. Make sure you discuss any questions you have with your health care provider. Document Released: 08/07/2006 Document Revised: 01/01/2020 Document Reviewed: 09/09/2017 [employer] Patient Education ? 2019 [employer] [facility] Urology Office/Clinic Noteon 12-27-2021 Urology Office/Clinic Note Chief Complaint Cysto This patient has a history of gross hematuria. CT scan showed several bladder masses. He is here today for cystoscopic exam. Urine cytology was positive. HPI Staff Cysto, ABX TAKEN, review CT SCAN History of Present Illness I have reviewed and verified the staff HPI to be accurate for this encounter. Review of Systems PHQ Score Initial Depression Screen Score: 0 ROS - Provider Constitutional: denies weight loss, denies hot flashes. Eyes: denies eye problems. Gastrointestinal: denies nausea, denies vomiting. Cardiovascular: denies chest pain or angina. Integumentary: no dryness Musculoskeletal: denies musculoskeletal symptoms. ENMT: denies otolaryngeal symptoms. Respiratory: no shortness of breath. Heme/Lymph: denies easy bleeding tendency, denies easy bruising tendency. Psychiatric: no confusion, no anxiety. Genitourinary: denies dysuria, denies hematuria, denies discharge, denies urinary frequency, denies urinary hesitancy, denies nocturia, denies incontinence, denies genital sores, denies decreased libido, and denies erectile dysfunction. Physical Exam Vitals & Measurements HR: 68(Peripheral) BP: 115/65 General Appearance: alert, no distress, well nourished, well developed male. Obease. Head: normocephalic . Eyes: normal orbit and globe. ENMT: normal examination of external ears. Chest: Lungs CTA, respirations non labored. Cardiovascular: regular rate and rhythm. Abdomen: soft, non distended, no tenderness, no mass or organomegaly, no hernia. Genitourinary: normal scrotum, normal testes, normal urethra, normal epididymis, normal vas deferens/spermatic cord. Flank Pain: none. Bladder: nonpalpable. Penis: normal shaft, normal glans. Prostate: normal prostate, estimated weight 40 gms, no hard nodule observed. Lymph Nodes: unremarkable palpation of the cervical area. Skin: warm, dry, no bruising. Psychiatric: cooperative, affect appropriate for age, normal judgement, euthymic mood. Procedure Operative Information Anesthesia Type: Local Procedure: Local Cystoscopy Complications: None Surgical risks, benefits, details of the procedure have been explained to the patient. Full informed consent has been obtained. Intraoperative Information Prepped: Patient is brought back to the endoscopy suite. Patient is placed in supine position. Patient prepped in the usual fashion with Betadine solution. 2% Xylocaine Jelly is placed per Urethra. After waiting several minutes, the Cystoscope is introduced. 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 The tumors were primarily on the left side of the bladder and near the dome. The Ureteral orifices: Show efflux of clear urine The Urethra was dilated to: _ Georgian with sounds. Specimens Removed: Voided specimen sent for Cytology Removal: Cystoscope is removed. The patient tolerated it well. Postoperative Information Patient is discharged home with antibiotic coverage. Follow up arranged. Assessment/Plan Cystoscopy shows evidence of papillary appearing bladder masses. These are likely malignancies. Patient is being scheduled for cystoscopy and transurethral resection of these bladder tumors. The procedure, risk, alternatives and potential complications have been discussed with the patient. All of his questions were answered. Preop antibiotics and preop medications have been ordered. Informed consent has been obtained. 1. Bladder mass (N32.89: Other specified disorders of bladder) Bladder masses measuring 1.9x1.4cm in the right axial image 119 and 5.4x 2.4cm in length, axial image 120. Additional area of thickening noted along the posterior superior margin measuring 1.6x 0.9 cm seen on delayed axial image 228. Ordered: Cystourethroscopy 06019 Urology Procedure Order 2. Gross hematuria (R31.0: Gross hematuria) Cysto with cytology done in office today. CT from 12/15/21 shows multiple hydronephrosis hypodensities. The larger lesions are simple cysts. No hydronephrosis or obstructing nephrolithiasis. Mild thickening of the left mid ureter axial image 197 measuring 2mm. 3. BPH (benign prostatic hyperplasia) (N40.0: Benign prostatic hyperplasia without lower urinary tract symptoms) S/P Rezum 02/16/17. Pt. is on Eliquis 5mg. Needs to stop Eliquis for the TURBT Will schedule Cysto with TURBT. The procedure risks, benefits, details, and treatment alternatives have been discussed with the patient. These include bleeding -- sometimes to the point of hemorrhaging, infection, risk of bladder perforation, recurrence of bladder tumor in 60-70% of patients, need for indwelling catheter for a variable amount of time, as well as the rare risk of needing an open operation to repair the bladder, among others. Additional therapy as well as follow-up bladder evaluation will most likely be required. Full informe (more content not included)... Normal [facility] Comment on above: Result Comment: Elec tronically Signed By: Autumn Molina MD, Yoko Hair\.br\Date and Time Signed: 12/27/21 13:27 EDT\.br\Electronically Co-Signed By: Elvin Hawthorne\.br\Date and Time Co-Signed: 12/27/21 13:19 EDT Lab Reportson 12-16-2021 Lab Reports [id number]:127 Normal [facility] RAD - CT Reporton 12-16-2021 RAD - CT Report [id number]:127 Normal [facility] CREATININEon 12-15-2021 Creatinine [Mass/Vol] 1.52 mg/dL Critically high 0.70-1.30 [facility] Comment on above: Performed By: #### C RAFA #### [facility] [address] [place] [address] Dr. Chao Garcia EGFR-AF MICRONESIAN 54 mL/min/1.73m2 Critically low >=60 [facility] Comment on above: Performed By: #### C RAFA #### [facility] [address] [address] [address] Chao Garcia EGFR-NON AF MICRONESIAN 45 mL/min/1.73m2 Critically low >=60 [facility] Comment on above: Performed By: #### C RAFA #### [facility] [address] [place] [address] ABD/PELV W CONon 12-16-19 CT ABD/PELV W CON EXAMINATION: CT ABD/ PELV W CON, 12/15/2021 11:26 AM EDT HISTORY: Rich hematuria COMPARISON: None. TECHNIQUE: CT scan of the abdomen and pelvis was performed with IV contrast. CT dose reduction technique was used, including Automated Exposure Control. FINDINGS: LUNG BASES: No visible pulmonary or pleural disease. LIVER: No enlargement, atrophy, abnormal density, or significant focal lesion. BILIARY: No dilatation or calcification. PANCREAS: No lesion, fluid collection, ductal dilatation, or atrophy. SPLEEN: No enlargement or focal lesion. ADRENALS: No mass or enlargement. KIDNEYS: Multiple bilateral cortical hypodensities. The larger lesions are simple cysts. No hydronephrosis or obstructing nephrolithiasis. Mild thickening of the left mid ureter axial image 197 measuring 2 mm BOWEL/MESENTERY: No visible mass, obstruction, or bowel wall thickening. AORTA/VASCULAR: No aortic aneurysm. Mild to moderate atherosclerosis RETROPERITONEUM: No mass or adenopathy. LYMPH NODES: Few left iliac chain lymph nodes borderline in size largest measuring 1.1 x 0.9 cm axial image 202 URINARY BLADDER: No focal bladder masses measuring 1.9 x 1.4 cm in the right, axial image 119 and 5.4 x 2.4 cm in length, axial image 120. Additional area of thickening noted along the posterior superior margin measuring 1.6 x 0.9 cm seen on delayed axial image 228 PELVIC ORGANS: No visible mass. Pelvic organs appropriate for patient age. ABDOMINAL WALL: No mass or hernia. BONES: Rotatory levoscoliosis with moderate to severe degenerative changes OTHER: Negative. IMPRESSION: 3 focal urinary bladder masses as detailed above. Malignancy is favored. Direct visualization is recommended Mild soft tissue thickening of the mid left ureter, this could be related to inflammatory changes or peristalsis. The differential diagnosis would include malignancy. Electronically authenticated by: JORDAN RUTLEDGE Date: 2021-12-15 13:10 Normal [facility] Formson 12-15-2021 Forms [id number]:127 Normal [facility] UroVysion Fish and Urine Cyt o ([facility])on 12-13-2021 UVFISH & UC Diagnosis Info Invalid Interpretation Code [facility] Comment on above: Result Comment: A:Ur ine,Urine:Voided Diagnosis Summary - Diagnosis Summary - The UroVysion FISH study detected a positive profile. UroVysion FISH evaluates chromosomes 3, 7, 17, and 9p21 for aneuploid and deletion events associated with urothelial cell carcinoma. 141 cells were analyzed in this evaluation. Evidence of aneuploidy in at least 66 cells and evidence in at least 7 cells with deletion of 9p21 were found. These findings should be correlated with cytology and cystoscopy results.* Microscopic Notes - Microscopic Notes - Abnormal cells 9p21 deletions: 7 Abnormal cells aneploid events: 66 Total cells analyzed: 141 Hematuria: Gross Description Site ID:A color Red fixative Alcohol Received 60 mls of cloudy red fluid with the patient's name and, Urine on the vial. Electronically signed by : on: 12/13/2021 13:24:10 Performed By: #### 1 [id number] ####[facility] [address] [place] [address] Patient Educationon 12-08-19 Patient Education Urology Hematuria, Adult Hematuria is blood in the urine. Blood may be visible in the urine, or it may be identified with a test. This condition can be caused by infections of the bladder, urethra, kidney, or prostate. Other possible causes include: ? Kidney stones. ? Cancer of the urinary tract. ? Too much calcium in the urine. ? Conditions that are passed from parent to child (inherited conditions). ? Exercise that requires a lot of energy. Infections can usually be treated with medicine, and a kidney stone usually will pass through your urine. If neither of these is the cause of your hematuria, more tests may be needed to identify the cause of your symptoms. It is very important to tell your health care provider about any blood in your urine, even if it is painless or the blood stops without treatment. Blood in the urine, when it happens and then stops and then happens again, can be a symptom of a very serious condition, including cancer. There is no pain in the initial stages of many urinary cancers. Follow these instructions at home: Medicines ? Take eoyx-srk-ycvzyct and prescription medicines only as told by your health care provider. ? If you were prescribed an antibiotic medicine, take it as told by your health care provider. Do not stop taking the antibiotic even if you start to feel better. Eating and drinking ? Drink enough fluid to keep your urine clear or pale yellow. It is recommended that you drink 3?4 quarts (2.8?3.8 L) a day. If you have been diagnosed with an infection, it is recommended that you drink cranberry juice in addition to large amounts of water. ? Avoid caffeine, tea, and carbonated beverages. These tend to irritate the bladder. ? Avoid alcohol because it may irritate the prostate (men). General instructions ? If you have been diagnosed with a kidney stone, follow your health care provider's instructions about straining your urine to catch the stone. ? Empty your bladder often. Avoid holding urine for long periods of time. ? If you are female: ? After a bowel movement, wipe from front to back and use each piece of toilet paper only once. ? Empty your bladder before and after sex. ? Pay attention to any changes in your symptoms. Tell your health care provider about any changes or any new symptoms. ? It is your responsibility to get your test results. Ask your health care provider, or the department performing the test, when your results will be ready. ? Keep all follow-up visits as told by your health care provider. This is important. Contact a health care provider if: ? You develop back pain. ? You have a fever. ? You have nausea or vomiting. ? Your symptoms do not improve after 3 days. ? Your symptoms get worse. Get help right away if: ? You develop severe vomiting and are unable take medicine without vomiting. ? You develop severe pain in your back or abdomen even though you are taking medicine. ? You pass a large amount of blood in your urine. ? You pass blood clots in your urine. ? You feel very weak or like you might faint. ? You faint. Summary ? Hematuria is blood in the urine. It has many possible causes. ? It is very important that you tell your health care provider about any blood in your urine, even if it is painless or the blood stops without treatment. ? Take dkfq-glo-mhmdjqf and prescription medicines only as told by your health care provider. ? Drink enough fluid to keep your urine clear or pale yellow. This information is not intended to replace advice given to you by your health care provider. Make sure you discuss any questions you have with your health care provider. Document Released: 08/07/2006 Document Revised: 01/01/2020 Document Reviewed: 09/09/2017 [employer] Patient Education ? 2019 [employer] [facility] UroVysion Fish and Urine Cyt o ([facility])on 12-07-2021 [facility] Method of Extraction Voided Normal [facility] Comment on above: Performed By: #### 1 [id number] ####[facility] [id number] [facility] [address] [facility] Number of Jars 1 Invalid Interpretation Code [facility] Comment on above: Performed By: #### 1 [id number] ####[facility] [id number] [place] [address] [facility] Specimen Urine Normal [facility] Comment on above: Performed By: #### 1 [id number] ####[facility] [id number] [facility] [address] [facility] Type of Service Global Normal Fish [facility] Comment on above: Performed By: #### 1 [id number] ####[facility] [address] [place] [address] Urology Office/Clinic Noteon 12-07-2021 Urology Office/Clinic Note Chief Complaint Gross hematuria with moderate bladder outlet obstruction symptoms. Patient is on Eliquis. HPI Staff This is a 76 year old male referred by Dr. Nguyen for hematuria. Pt was last seen by Dr. Rizvi 05/03/18. S/P Rezumc 02/16/17. Pt. is on Eliquis 5mg. Pain with urination:No Blood in urine:Pt. states the middle of Sep Pt. stared having gross hematuria. Pt. states he was put a on ABX October 20. Incomplete bladder emptying:No Frequency:Occasionally sooner then 2 hours. Urgency:Occasionally Nocturia:1x Hesitancy:No Urination requires straining:No Stream:Weak Stream starts and stops:No Post-void dribbling:Moderate Leaking before getting to the restroom:Occasionally Urinary incontinence without sensory awareness:No Temporarily unable to restrain urination with body movement:No Wearing pad/Depends:No Flank/Back pain:No Abdominal pain:No History of Present Illness I have reviewed and verified the staff HPI to be accurate for this encounter. Review of Systems ROS - Provider Constitutional: denies weight loss, denies hot flashes. Eyes: denies eye problems. Gastrointestinal: denies nausea, denies vomiting. Cardiovascular: denies chest pain or angina. Integumentary: no dryness Musculoskeletal: denies musculoskeletal symptoms. ENMT: denies otolaryngeal symptoms. Respiratory: no shortness of breath. Heme/Lymph: denies easy bleeding tendency, denies easy bruising tendency. Psychiatric: no confusion, no anxiety. Genitourinary: denies dysuria, denies hematuria, denies discharge, denies urinary frequency, denies urinary hesitancy, denies nocturia, denies incontinence, denies genital sores, denies decreased libido, and denies erectile dysfunction. Physical Exam General Appearance: alert, no distress, well nourished, well developed male. Head: normocephalic . Eyes: normal orbit and globe. ENMT: normal examination of external ears. Chest: Lungs CTA, respirations non labored. Cardiovascular: regular rate and rhythm. Abdomen: soft, non distended, no tenderness, no mass or organomegaly, no hernia. Genitourinary: normal scrotum, normal testes, normal urethra, normal epididymis, normal vas deferens/spermatic cord. Flank Pain: none. Bladder: nonpalpable. Penis: normal shaft, normal glans. Prostate: normal prostate, estimated weight 50 gms, no hard nodule observed. Lymph Nodes: unremarkable palpation of the cervical area. Skin: warm, dry, no bruising. Psychiatric: cooperative, affect appropriate for age, normal judgement, euthymic mood. Assessment/Plan This patient has a history of gross painless hematuria. This has been an issue for the last several months. He is taking Eliquis on a regular basis. He does not complain of dysuria, urgency or urinary incontinence. He will be scheduled for hematuria work-up that includes cystoscopy, urine cytology and a CT scan with contrast. The procedure, risk, alternatives and potential complications have been discussed with the patient. All of his questions were answered. Informed consent has been obtained. Preop antibiotics have been ordered. 1. Gross hematuria (R31.0: Gross hematuria) states the middle of Sep Pt. stared having gross hematuria. Pt. states he was put a on ABX October 20. Discussed with pt getting a CT of abdomen and pelvis with Contrast, doing a Cystoscopy, and sending his Urine out for Fish/Cytology. Discussed with pt reasons as to why he could have blood in his urine. Discussed with pt that since he is on blood thinners that will increase his chance of having blood in the urine.Discussed with pt that we will go over the CT and Fish/Cytology at the time of the Cysto. If pt has any concerns before his next visit he will contact our office. Pt understands and acknowledges. Will schedule Cystoscopy. The risks and benefits for cystoscopy have been discussed. The risks include bleeding, infection, and irritation of the bladder and urinary channel, among others. The patient, after being informed of procedural details and after questions have been answered, wishes to proceed. Full informed consent has been obtained. Will order Local anesthesia. Ordered: CT Abdomen/Pelvis w/ Contrast Urology Procedure Order 2. BPH (benign prostatic hyperplasia) (N40.0: Benign prostatic hyperplasia without lower urinary tract symptoms) S/P Rezum 02/16/17. Pt. is on Eliquis 5mg. Ordered: Urology Procedure Order Orders: ciprofloxacin, 500 mg = 1 tab(s), Oral, Daily, take 1 day prior to procedure and 1 tab after procedure, # 2 tab(s), Refills(s) 0, Pharmacy: [id number] Follow-up With When Contact Information Autumn Molina MD, Yoko Hair, [facility] [address], [place] [phone] Additional Instructions: Patient Education Hematuria, Adult I, Margaret Mitchell, personally scribed for Dr. Rizvi on 12/07/2021 10:01:53. . Documentation recorded by the scri (more content not included)... Normal [facility] Comment on above: Result Comment: Elec tronically Signed By: Yoko Rizvi Jr., MD\.br\Date and Time Signed: 12/07/21 10:06 EDT\.br\Electronically Co-Signed By: Margaret Mitchell MA\.br\Date and Time Co-Signed: 12/07/21 10:03 EDT Office Visit (Cardiology)on 08-31-2021 Follow-up visit Diagnoses/Problems Assessed Pulmonary embolism (415.19) (I26.99) Essential hypertension (401.9) (I10) Hyperlipidemia (272.4) (E78.5) Never a smoker Morbid obesity with BMI of 45.0-49.9, adult (278.01,V85.42) (E66.01,Z68.42) Orders Morbid obesity with BMI of 45.0-49.9, adult Healthy Weight Tips; Status:Complete - Retrospective Authorization; Done: 31Aug2021 SocHx: Never a smoker Tobacco Use Screening; Status:Complete; Done: 31Aug2021 Patient Instructions By signing my name below, I, Joana Roche LPN,Raizaibmagdalena, attest that this documentation has been prepared under the direction and in the presence of Dr. Baltazar Hoover, . Please bring all medicines, vitamins, and herbal supplements with you when you come to the office. Prescriptions will not be filled unless you are compliant with your follow up appointments or have a follow up appointment scheduled as per instruction of your physician. Refills should be requested at the time of your visit. Follow up in 1 year. Chief Complaint TAURUS GARCIA is being seen for an annual follow-up of. 75-year-old gentleman returns for annual follow-up and doing very well from a cardiovascular and pulmonary vascular standpoint with no bleeding or recurrent thromboembolic events. Remains morbidly obese and ambulates as allowable given his weight and sedentary lifestyle. He has underlying history of bilateral PEs in 2019 and treated conservatively. Notably, prior to that in 2017 he had a heart catheterization revealing normal left ventricular function. He has evidence of myasthenia gravis, currently controlled, morbid obesity, and remains on Eliquis therapy with no bleeding or recurrent thromboembolic events. Recommendations, counseling on exercise dietary discretion weight loss is much as possible given his limited activity capability and otherwise we will follow-up in 1 year, continue same medications. Surgical History Problems History of Appendectomy History of Cardiac catheterization History of Cataract surgery History of Complete colonoscopy PROCEDURE DATE [id number] History of Neck surgery Current Meds Medication NameInstruction amLODIPine Besylate 5 MG Oral TabletTAKE 1 TABLET DAILY. Baclofen 10 MG Oral TabletTAKE 1 TABLET 3 TIMES DAILY NEEDED FOR MUSCLE SPASM. Eliquis 5 MG Oral Tablettake 1 tablet by mouth twice a day Fish Oil 1200 MG Oral CapsuleTAKE DIRECTED. Furosemide 20 MG Oral TabletTAKE 1 TABLET DAILY DIRECTED. Gabapentin 300 MG Oral CapsuleTAKE 1 CAPSULE AT BEDTIME. hydrALAZINE HCl - 50 MG Oral TabletTAKE 1 TABLET TWICE DAILY. Lisinopril 20 MG Oral TabletTAKE 1 TABLET DAILY. Loratadine 10 MG Oral CapsuleTAKE 1 CAPSULE Daily Multi Vitamin TABSTAKE 1 TABLET DAILY. predniSONE 10 MG Oral TabletTake 1 tablet daily predniSONE 5 MG Oral TabletTake 1 tablet daily Pyridostigmine [place] 60 MG Oral TabletTAKE 1 TABLET 4 TIMES DAILY. Simvastatin 40 MG Oral TabletTAKE 1 TABLET AT BEDTIME. Triamterene-HCTZ 37.5-25 MG Oral TabletTAKE 1 TABLET DAILY. Allergies NoKnown No Known Allergies Recorded By: Lona Grover; 07/29/2021 11:34:19 AM Social History Problems Caffeine use (V49.89) (Z78.9) 2 CANS DAILY OF CAFFIENE FREE OR DIET POP Never a smoker No illicit drug use Social alcohol use (V49.89) (Z78.9) 2-3 cans monthly Review of Systems Constitutional: not feeling tired. Cardiovascular: no intermittent leg claudication and as noted in HPI. Respiratory: shortness of breath, but no cough. Gastrointestinal: no change in bowel habits and no blood in stools. Integumentary: no skin rashes. Neurological: dizziness, but no seizures and no frequent falls. All other systems have been reviewed and are negative for complaint. Vitals Vital Signs Recorded: 31Aug2021 01:21PM Heart Rate74, L Radial Mquwronz458, LUE, Sitting Aimcdybsp81, LUE, Sitting Height5 ft 9 in Hjozxj209 lb BMI Kusixzdxsc23.62 kg/m2 BSA Calculated2.58 Tobacco Useb) No Fall Screeninga) No falls within the last year Physical Exam Constitutional: alert and in no acute distress. Neck: neck is supple, symmetric, trachea midline, no masses and no thyromegaly . Pulmonary: no increased work of breathing or signs of respiratory distress and lungs clear to auscultation. Cardiovascular: carotid pulses 2+ bilaterally with no bruit , JVP was normal, no thrills , regular rhythm, normal S1 and S2, no murmurs , pedal pulses 2+ bilaterally and no edema . Abdomen: abdomen non-tender, no masses and no hepatomegaly . Skin: skin warm and dry, normal skin turgor . Psychiatric judgment and insight is normal and oriented to person, place and time . Signatures Electronically signed by : Baltazar Hoover DO; Aug 31 2021 3:38PM EST (Author) Normal [facility] Complete Blood Count with Au to Diffon 08-18-2021 Basophils (Bld) [#/Vol] 0.05 10*3/uL Normal 0.00-0.20 [facility] Comment on above: Performed By: #### C MP, LIPD, TSH, CBCAD, FT4 #### [facility] [address], [place] [id number] Basophils/100 WBC (Bld) 0.7 % Normal [facility] Comment on above: Performed By: #### C MP, LIPD, TSH, CBCAD, FT4 #### [facility] [address], [place] [id number] Eosinophils (Bld) [#/Vol] 0.15 10*3/uL Normal 0.02-0.50 [facility] Comment on above: Performed By: #### C MP, LIPD, TSH, CBCAD, FT4 #### [facility] [address], [place] [id number] Eosinophils/100 WBC (Bld) 2.0 % Normal [facility] Comment on above: Performed By: #### C MP, LIPD, TSH, CBCAD, FT4 #### [facility] [address], [place] [id number] Erythrocyte distribution width (RBC) [Ratio] 14.6 % Normal 11.0-15.0 [facility] Comment on above: Performed By: #### C MP, LIPD, TSH, CBCAD, FT4 #### [facility] [address], [place] [id number] Hematocrit (Bld) [Volume fraction] 43.5 % Normal 38.5-50.0 [facility] Comment on above: Performed By: #### C MP, LIPD, TSH, CBCAD, FT4 #### [facility] [address], [place] [id number] Hemoglobin (Bld) [Mass/Vol] 13.8 g/dL Normal 13.0-17.1 [facility] Comment on above: Performed By: #### C MP, LIPD, TSH, CBCAD, FT4 #### [facility] [address], [place] [id number] Lymphocytes (Bld) [#/Vol] 2.5 10*3/uL Normal 0.9-3.9 [facility] Comment on above: Performed By: #### C MP, LIPD, TSH, CBCAD, FT4 #### [facility] [address], [place] [id number] Lymphocytes/100 WBC (Bld) 32.3 % Normal [facility] Comment on above: Performed By: #### C MP, LIPD, TSH, CBCAD, FT4 #### [facility] [address], [place] [id number] MCH (RBC) [Entitic mass] 30.3 pg Normal 27.0-33.0 [facility] Comment on above: Performed By: #### C MP, LIPD, TSH, CBCAD, FT4 #### [facility] [address], [place] [id number] MCHC (RBC) [Mass/Vol] 31.7 g/dL Low 32.0-36.0 [facility] Comment on above: Performed By: #### C MP, LIPD, TSH, CBCAD, FT4 #### [facility] [address], [place] [id number] MCV (RBC) [Entitic vol] 95 fL Normal 80-100 [facility] Comment on above: Performed By: #### C MP, LIPD, TSH, CBCAD, FT4 #### [facility] [address], [place] [id number] Monocytes (Bld) [#/Vol] 0.9 10*3/uL Normal 0.2-0.9 [facility] Comment on above: Performed By: #### C MP, LIPD, TSH, CBCAD, FT4 #### [facility] [address], [place] [id number] Monocytes/100 WBC (Bld) 11.5 % Normal [facility] Comment on above: Performed By: #### C MP, LIPD, TSH, CBCAD, FT4 #### [facility] [address], [place] [id number] Neutrophils (Bld) [#/Vol] 4.1 10*3/uL Normal 1.5-7.8 [facility] Comment on above: Performed By: #### C MP, LIPD, TSH, CBCAD, FT4 #### [facility] [address], [place] [id number] Neutrophils/100 WBC (Bld) 53.0 % Normal [facility] Comment on above: Performed By: #### C MP, LIPD, TSH, CBCAD, FT4 #### [facility] [address], [place] [id number] Platelet mean volume (Bld) [Entitic vol] 10.70 fL Normal 7.50-12.50 [facility] Comment on above: Performed By: #### C MP, LIPD, TSH, CBCAD, FT4 #### [facility] [address], [place] [id number] Platelets (Bld) [#/Vol] 208 10*3/uL Normal 140-400 [facility] Comment on above: Performed By: #### C MP, LIPD, TSH, CBCAD, FT4 #### [facility] [address], [place] [id number] RBC (Bld) [#/Vol] 4.56 10*6/uL Normal 4.20-5.80 [facility] Comment on above: Performed By: #### C MP, LIPD, TSH, CBCAD, FT4 #### [facility] [address], [place] [id number] RDW-SD 51.6 fL High 37.0-50.0 [facility] Comment on above: Performed By: #### C MP, LIPD, TSH, CBCAD, FT4 #### [facility] [address], [place] [id number] WBC (Bld) [#/Vol] 7.7 10*3/uL Normal 3.8-11.0 [facility] Comment on above: Performed By: #### C MP, LIPD, TSH, CBCAD, FT4 #### [facility] [address], [place] [id number] Comprehensive Metabolic Pane rc 08-18-2021 Albumin [Mass/Vol] 4.2 g/dL Normal 3.6-5.1 [facility] Comment on above: Performed By: #### C MP, LIPD, TSH, CBCAD, FT4 #### [facility] [address], [place] [id number] Albumin/Globulin [Mass ratio] 2.0 {ratio} Normal 1.0-2.5 [facility] Comment on above: Performed By: #### C MP, LIPD, TSH, CBCAD, FT4 #### [facility] [address], [place] [id number] ALP [Catalytic activity/Vol] 69 U/L Normal 40-129 [facility] Comment on above: Performed By: #### C MP, LIPD, TSH, CBCAD, FT4 #### [facility] [address], [place] [id number] ALT [Catalytic activity/Vol] 22 U/L Normal 9-46 [facility] Comment on above: Result Comment: 07/21 Female reference range changed. Performed By: #### C MP, LIPD, TSH, CBCAD, FT4 #### [facility] [address], [place] [id number] Anion gap [Moles/Vol] 18 mmol/L Normal 12-20 [facility] Comment on above: Result Comment: Effe ctive 08/26/2019 reference range changed. Performed By: #### C MP, LIPD, TSH, CBCAD, FT4 #### [facility] [address], [place] [id number] AST [Catalytic activity/Vol] 21 U/L Normal 10-40 [facility] Comment on above: Performed By: #### C MP, LIPD, TSH, CBCAD, FT4 #### [facility] [address], [place] [id number] Bilirubin [Mass/Vol] 0.60 mg/dL Normal 0.30-1.20 [facility] Comment on above: Performed By: #### C MP, LIPD, TSH, CBCAD, FT4 #### [facility] [address], [place] [id number] BUN/CREA 20 Ratio Normal 6-22 [facility] Comment on above: Performed By: #### C MP, LIPD, TSH, CBCAD, FT4 #### [facility] [address], [place] [id number] Calcium [Mass/Vol] 9.3 mg/dL Normal 8.6-10.2 [facility] Comment on above: Performed By: #### C MP, LIPD, TSH, CBCAD, FT4 #### [facility] [address], [place] [id number] Chloride [Moles/Vol] 104 mmol/L Normal 98-107 [facility] Comment on above: Performed By: #### C MP, LIPD, TSH, CBCAD, FT4 #### [facility] [address], [place] [id number] CO2 [Moles/Vol] 25 mmol/L Normal 20-31 [facility] Comment on above: Performed By: #### C MP, LIPD, TSH, CBCAD, FT4 #### [facility] [address], [place] [id number] Creatinine [Mass/Vol] 1.2 mg/dL Normal 0.7-1.4 [facility] Comment on above: Performed By: #### C MP, LIPD, TSH, CBCAD, FT4 #### [facility] [address], [place] [id number] eGFRAA 72 mL/min/1.73m2 Normal >60 [facility] Comment on above: Performed By: #### C MP, LIPD, TSH, CBCAD, FT4 #### [facility] [address], [place] [id number] eGFRNAA 59 mL/min/1.73m2 Low >60 [facility] Comment on above: Performed By: #### C MP, LIPD, TSH, CBCAD, FT4 #### [facility] [address], [place] [id number] Globulin (S) [Mass/Vol] 2.1 g/dL Normal 1.9-3.7 [facility] Comment on above: Performed By: #### C MP, LIPD, TSH, CBCAD, FT4 #### [facility] [address], [place] [id number] Glucose [Mass/Vol] 132 mg/dL High 65-99 [facility] Comment on above: Result Comment: For FASTING Glucose --- ADA reference ranges: Normal 65-99 mg/dl Prediabetes 100-125 Diabetes >/= 126 Performed By: #### C MP, LIPD, TSH, CBCAD, FT4 #### [facility] [address], [place] [id number] Potassium [Moles/Vol] 3.4 mmol/L Low 3.5-5.5 [facility] Comment on above: Performed By: #### C MP, LIPD, TSH, CBCAD, FT4 #### [facility] [address], [place] [id number] Protein [Mass/Vol] 6.3 g/dL Normal 6.1-8.[address] [facility] Comment on above: Performed By: #### C MP, LIPD, TSH, CBCAD, FT4 #### [facility] [address], [place] [id number] Sodium [Moles/Vol] 144 mmol/L Normal 135-146 [facility] Comment on above: Performed By: #### C MP, LIPD, TSH, CBCAD, FT4 #### [facility] [address], [place] [id number] Urea nitrogen [Mass/Vol] 23 mg/dL Normal 7-25 [facility] Comment on above: Performed By: #### C MP, LIPD, TSH, CBCAD, FT4 #### [facility] [address], [place] [id number] Free T4on 08-18-2021 Free T4 [Mass/Vol] 1.26 ng/dL Normal 0.80-1.80 Duckwatermagdalena [facility] Comment on above: Performed By: #### C MP, LIPD, TSH, CBCAD, FT4 #### [facility] [address], [place] [id number] Lipid Panelon 08-18-2021 Cholesterol [Mass/Vol] 170 mg/dL Normal 125-200 [facility] Comment on above: Result Comment: Low risk < 200mg/dL Borderline risk 201-239 mg/dl High risk > or equal to 240 Performed By: #### C MP, LIPD, TSH, CBCAD, FT4 #### [facility] [address], [place] [id number] Cholesterol in HDL [Mass/Vol] 70 mg/dL Normal >40 [facility] Comment on above: Result Comment: High Cardiovascular Risk HDL <40 mg/dL Low Cardiovascular Risk HDL > or equal to 60 mg/dl Performed By: #### C MP, LIPD, TSH, CBCAD, FT4 #### [facility] [address], [place] [id number] Cholesterol in LDL [Mass/Vol] 78 mg/dL Normal [facility] Comment on above: Result Comment: LDL ATP III CLASSIFICATION LDL less than 100 mg/dl Optimal LDL 100-129 mg/dl Near or above optimal LDL 130-159 Borderline high LDL 160-189 High LDL greater than 189 mg/dl Very High Performed By: #### C MP, LIPD, TSH, CBCAD, FT4 #### [facility] [address], [place] [id number] Cholesterol in VLDL [Mass/Vol] 22 mg/dL Normal [facility] Comment on above: Performed By: #### C MP, LIPD, TSH, CBCAD, FT4 #### [facility] [address], [place] [id number] Cholesterol.total/Chol esterol in HDL [Mass ratio] 2 {ratio} Normal [facility] Comment on above: Performed By: #### C MP, LIPD, TSH, CBCAD, FT4 #### [facility] [address], [place] [id number] Triglyceride [Mass/Vol] 110 mg/dL Normal 30-150 [facility] Comment on above: Result Comment: TRIG ATPIII CLASSIFICATIONS TRIG less than 150 mg/dl Normal TRIG 150-199 mg/dl Borderline High TRIG 200-500 mg/dl High TRIG greather than 500 mg/dl Very High Performed By: #### C MP, LIPD, TSH, CBCAD, FT4 #### [facility] [address], [place] [id number] PSA SCREEN (MEDICARE)on 07-22 TPSA 1.270 ng/mL Normal <4.000 [facility] Comment on above: Result Comment: PSA Test Method: ECLIA/Racquel e 601 Performed By: #### P SA #### [facility] [address], [place] [id number] TSHon 08-18-2021 TSH 4.190 uIU/mL Normal 0.400-4.50 0 [facility] Comment on above: Performed By: #### C MP, LIPD, TSH, CBCAD, FT4 #### [facility] [address], [place] [id number] Covid-19 PCR ([facility])on 03-23 SARS-CoV-2 (COVID-19) RNA JAYDE+probe Ql (Unsp spec) Detected Critically abnormal NOT DETECTED [facility] Comment on above: Result Comment: This test is not yet approved or cleared by the [place] FDA. When there are no FDA-approved or cleared tests available, and other criteria are met, FDA can make tests available under an emergency access mechanism called an Emergency Use Authorization (EUA). The EUA for this test is supported by the [place] of Health and Human Service's (HHS's) declaration that circumstances exist to justify the emergency use of in vitro diagnostics for the detection and/or diagnosis of the virus that causes COVID-19. This EUA will remain in effect (meaning this test can be used) for the duration of the COVID-19 declaration justifying emergency of IVDs, unless it is terminated or revoked by FDA (after which the test may no longer be used). Performed By: #### [facility] #### [facility] [address] [place], [place] [address] Jalyn Noble US JO ANN DOP LEG LTon 02-10-20 21 US JO ANN DOP LEG LT EXAMINATION: US JO ANN DOP LEG LT HISTORY: Localized edema COMPARISON: No relevant comparison available. TECHNIQUE: Grayscale and color ultrasound FINDINGS: Region: Left leg Thrombus: None Flow: Normal Compressibility: Normal Augmentation: Normal Other: 2.5 x 1.7 x 0.6 cm cystic area in the medial popliteal fossa, a popliteal cyst is favored. Mild to moderate lower leg subcutaneous edema IMPRESSION: No deep vein thrombus in the left leg *Exam performed in accordance with [facility] practice guidelines- Peripheral venous ultrasound, November 14, 2009. Electronically authenticated by: JORDAN RUTLEDGE Date: 2021-02-09 16:35 Normal [facility] Vital Signs Date Time Vital Sign Value Performing Clinician Facility 10-05-2023 13:16-0500 Body height 177.8 cm Komal Nguyen MD Work Phone: [facility] 10-05-2023 13:16-0500 Body mass index (BMI) [Ratio] 45.2 kg/m2 Komal Nguyen MD Work Phone: [facility] 10-05-2023 13:16-0500 Body weight 142.88 kg Komal Nguyen MD Work Phone: [facility] 10-05-2023 13:16-0500 Diastolic blood pressure 82 mm[Hg] Komal Nguyen MD Work Phone: [facility] 10-05-2023 13:16-0500 Heart rate 58 /min Komal Nguyen MD Work Phone: [facility] 10-05-2023 13:16-0500 SaO2% (BldA) [Mass fraction] 96 % Komal Nguyen MD Work Phone: [facility] 10-05-2023 13:16-0500 Systolic blood pressure 134 mm[Hg] Komal Nguyen MD Work Phone: [facility] 09-20-2023 12:13-0500 Body height 172.7 cm Baltazar Hoover DO Work Phone: [facility] 09-20-2023 12:13-0500 Body mass index (BMI) [Ratio] 47.59 kg/m2 Baltazar Hoover DO Work Phone: [facility] 09-20-2023 12:13-0500 Body weight 141.98 kg Baltazar Hoover DO Work Phone: [facility] 09-20-2023 12:13-0500 Diastolic blood pressure 74 mm[Hg] Baltazar Hoover DO Work Phone: [facility] 09-20-2023 12:13-0500 Heart rate 53 /min Baltazar Hoover DO Work Phone: [facility] 09-20-2023 12:13-0500 Systolic blood pressure 130 mm[Hg] Baltazar Hoover DO Work Phone: [facility] 06-10-2023 05:00-0400 Body temperature 97.2 [degF] II Komal Nguyen Work Phone: [facility] 06-10-2023 05:00-0400 Diastolic blood pressure 70 mm[Hg] II Komalescobar Nguyen Work Phone: [facility] 06-10-2023 05:00-0400 Heart rate 57 /min II Komal Nguyen Work Phone: [facility] 06-10-2023 05:00-0400 Respiratory rate 18 /min II Komal Nguyen Work Phone: [facility] 06-10-2023 05:00-0400 SaO2% (BldA) [Mass fraction] 95 % II Komal Nguyen Work Phone: [facility] 06-10-2023 05:00-0400 Systolic blood pressure 145 mm[Hg] II Komal Nguyen Work Phone: [facility] 06-06-2023 12:31-0400 Body height 172.72 cm II Komal Nguyen Work Phone: [facility] 06-04-2023 06:00-0400 Body weight 138.9 kg II Komalescobar Nguyen Work Phone: [facility] 05-25-2023 00:00-0400 Inhaled oxygen flow rate 2 L/min II Komalescobar Nguyen Work Phone: [facility] 05-21-2023 13:47-0400 Body temperature 98.4 [degF] II Komalescobar Nguyen Work Phone: [facility] 05-21-2023 13:47-0400 Diastolic blood pressure 82 mm[Hg] II Komal Nguyen Work Phone: [facility] 05-21-2023 13:47-0400 Heart rate 60 /min II Komal Nguyen Work Phone: [facility] 05-21-2023 13:47-0400 Inhaled oxygen flow rate 2 L/min II Komal Nguyen Work Phone: [facility] 05-21-2023 13:47-0400 Respiratory rate 20 /min II Komal Nguyen Work Phone: [facility] 05-21-2023 13:47-0400 SaO2% (BldA) [Mass fraction] 94 % II Komal Nguyen Work Phone: [facility] 05-21-2023 13:47-0400 Systolic blood pressure 145 mm[Hg] II Komal Nguyen Work Phone: [facility] 05-21-2023 05:35-0400 Body weight 145 kg II Komal Nguyen Work Phone: [facility] 05-18-2023 12:18-0400 Body height 175.26 cm II Komal Nguyen Work Phone: [facility] 05-15-2023 18:00-0400 Inhaled oxygen concentration 4 % II Komal Nguyen Work Phone: [facility] 10-18-2022 08:30-0500 Body temperature 97.59 [degF] Honorio Vuong MD Work Phone: [employer] 10-18-2022 08:30-0500 Diastolic blood pressure 81 mm[Hg] Honorio Vuong MD Work Phone: [facility] [employer] 10-18-2022 08:30-0500 Heart rate 75 /min Honorio Vuong MD Work Phone: [facility] [employer] 10-18-2022 08:30-0500 Respiratory rate 20 /min Honorio Vuong MD Work Phone: [facility] [employer] 10-18-2022 08:30-0500 SaO2% (BldA) [Mass fraction] 95 % Honorio Vuong MD Work Phone: [facility] [employer] 10-18-2022 08:30-0500 Systolic blood pressure 150 mm[Hg] Honorio Vuong MD Work Phone: [facility] [employer] 10-17-2022 06:00-0500 Body mass index (BMI) [Ratio] 48.42 kg/m2 Honorio Vuong MD Work Phone: [facility] [employer] 10-17-2022 06:00-0500 Body weight 144.44 kg Honorio Vuong MD Work Phone: [facility] [employer] 10-15-2022 19:51-0500 Body height 172.7 cm Honorio Vuong MD Work Phone: [facility] [employer] 09-07-2022 11:23-0500 Body height 172.72 cm Melonie Rizvi [employer] MOTOR SPECIALIST[employer] Work Phone: [facility] 250 DO Work Phone: 09-07-2022 11:23-0500 Body mass index (BMI) [Ratio] 49.72 kg/m2 Melonie Rizvi [employer] MOTOR SPECIALIST[employer] PERSON Work Phone: [facility] 250 DO Work Phone: 09-07-2022 11:23-0500 Body surface area Derived from formula 2.52 m2 Melonie Rizvi [employer] MOTOR SPECIALIST[employer] PERSON Work Phone: [facility] 250 DO Work Phone: 09-07-2022 11:23-0500 Body weight 148.33 kg Melonie Rizvi [employer] MOTOR SPECIALIST[employer]ERSON Work Phone: [facility] 250 DO Work Phone: 09-07-2022 11:23-0500 Diastolic blood pressure 78 mm[Hg] Melonie Grijalvakwasi Rizvi [employer]ISM MOTOR SPECIALIST[employer] PERSON Work Phone: [facility] 250 DO Work Phone: 09-07-2022 11:23-0500 Heart rate 64 /min Melonie Hanley Rizvi [employer] MOTOR SPECIALIST[employer]ERSON Work Phone: [facility] 250 DO Work Phone: 09-07-2022 11:23-0500 Systolic blood pressure 122 mm[Hg] Meloine Hanley Autumn [employer] MOTOR SPECIALIST[employer]ERSON Work Phone: [facility] 250 DO Work Phone: 05-06-2022 12:45-0400 Body weight 148.19 kg Celso Peñaloza MD, PhD Work Phone: [facility] 05-06-2022 12:45-0400 Diastolic blood pressure 55 mm[Hg] Celso Peñaloza MD, PhD Work Phone: [facility] 05-06-2022 12:45-0400 Heart rate 67 /min Celso Peñaloza MD, PhD Work Phone: [facility] 05-06-2022 12:45-0400 Systolic blood pressure 132 mm[Hg] Celso Peñaloza MD, PhD Work Phone: [facility] 03-29-2022 11:04-0400 Blood Pressure Location Yoko Rizvi Jr. [facility] 03-29-2022 11:04-0400 Diastolic blood pressure 80 mm[Hg] Yoko Rizvi Jr. [facility] 03-29-2022 11:04-0400 Heart rate 108 /min Yoko Rizvi Jr. [facility] 03-29-2022 11:04-0400 Respiratory rate 16 /min Yoko Rizvi Jr. [facility] 03-29-2022 11:04-0400 Systolic blood pressure 126 mm[Hg] Yoko Rizvi Jr. [facility] 03-03-2022 12:59-0400 Blood Pressure Location Yoko Rizvi Jr[facility] 03-03-2022 12:59-0400 Body temperature 97.88 [degF] [facility] 03-03-2022 12:59-0400 BP/Pulse Patient Position [facility] Jr[facility] 03-03-2022 12:59-0400 Diastolic blood pressure 60 mm[Hg] [facility] 03-03-2022 12:59-0400 Heart rate 62 /min [facility] R[facility]vi Jr[facility] 03-03-2022 12:59-0400 Mean blood pressure 74 mm[Hg] [facility] 03-03-2022 12:59-0400 Respiratory rate 16 /min [facility] R[facility]vi Jr[facility] 03-03-2022 12:59-0400 SaO2% (BldA) [Mass fraction] 97 % [facility] R[facility] Jr[facility] 03-03-2022 12:59-0400 Systolic blood pressure 100 mm[Hg] [facility] 03-03-2022 12:04-0400 Body temperature 98.06 [degF] [facility] 03-03-2022 12:04-0400 Diastolic blood pressure 60 mm[Hg] [facility] 03-03-2022 12:04-0400 Heart rate 63 /min [facility] R[facility] Jr[facility] 03-03-2022 12:04-0400 Mean blood pressure 76 mm[Hg] [facility] 03-03-2022 12:04-0400 SaO2% (BldA) [Mass fraction] 94 % [facility] 03-03-2022 12:04-0400 Systolic blood pressure 106 mm[Hg] [facility] 03-03-2022 11:50-0400 Blood Pressure Location [facility] Jr[facility] 03-03-2022 11:50-0400 Body temperature 97.52 [degF] [facility] 03-03-2022 11:50-0400 Diastolic blood pressure 70 mm[Hg] [facility] 03-03-2022 11:50-0400 Heart rate 58 /min [facility] R[facility]vi Jr[facility] 03-03-2022 11:50-0400 Respiratory rate 10 /min [facility] R[facility] Jr[facility] 03-03-2022 11:50-0400 SaO2% (BldA) [Mass fraction] 95 % [facility] 03-03-2022 11:50-0400 Systolic blood pressure 141 mm[Hg] [facility] 03-03-2022 11:40-0400 Blood Pressure Location [facility] 03-03-2022 11:40-0400 Respiratory rate 17 /min [facility] Jr[facility] 03-03-2022 11:35-0400 Respiratory rate 11 /min [facility] Jr[facility] 03-03-2022 11:25-0400 Body temperature 97.16 [degF] [facility] 03-03-2022 11:20-0400 Respiratory rate 26 /min [facility] R[facility] Jr[facility] 03-03-2022 11:15-0400 Respiratory rate 19 /min [facility] R[facility] Jr[facility] 03-03-2022 08:04-0400 Mean blood pressure 86 mm[Hg] [facility] 03-03-2022 08:04-0400 Body temperature 98.42 [degF] [facility] 03-03-2022 08:04-0400 Heart rate 68 /min [facility] Jr[facility] 02-17-2022 13:43-0400 Blood Pressure Location [facility] 02-17-2022 13:43-0400 Diastolic blood pressure 69 mm[Hg] [facility] 02-17-2022 13:43-0400 Systolic blood pressure 162 mm[Hg] [facility] 02-17-2022 13:30-0400 Blood Pressure Location [facility] 02-17-2022 13:30-0400 BP/Pulse Patient Position [facility] 02-17-2022 13:30-0400 Diastolic blood pressure 52 mm[Hg] [facility] 02-17-2022 13:30-0400 Heart rate 68 /min [facility] 02-17-2022 13:30-0400 Mean blood pressure 84 mm[Hg] [facility] 02-17-2022 13:30-0400 Respiratory rate 24 /min [facility] 02-17-2022 13:30-0400 SaO2% (BldA) [Mass fraction] 92 % [facility] 02-17-2022 13:30-0400 Systolic blood pressure 149 mm[Hg] [facility] 02-17-2022 13:30-0400 Body temperature 99.32 [degF] [facility] 02-01-2022 11:14-0400 Blood Pressure Location Yoko Rizvi Jr. [facility] 02-01-2022 11:14-0400 Diastolic blood pressure 43 mm[Hg] Yoko Rizvi Jr. [facility] 02-01-2022 11:14-0400 Heart rate 72 /min Yoko Rizvi Jr. [facility] 02-01-2022 11:14-0400 Respiratory rate 16 /min Yoko Rizvi Jr. [facility] 02-01-2022 11:14-0400 Systolic blood pressure 133 mm[Hg] Yoko Rizvi Jr. [facility] 12-27-2021 12:42-0400 Blood Pressure Location [facility]oko Rizvi Jr. [facility] 12-27-2021 12:42-0400 Diastolic blood pressure 65 mm[Hg] Yoko Rizvi Jr. [facility] 12-27-2021 12:42-0400 Heart rate 68 /min Yoko Rizvi Jr. [facility] 12-27-2021 12:42-0400 Systolic blood pressure 115 mm[Hg] [facility]oko Rizvi Jr. [facility] Encounters Encounter Date Encounter Type Care Provider Facility Start: 01-25-2024 End: 01-25-2024 ambulatory REAL TUTTLE Not Available Start: 01-17-2024 End: 01-17-2024 ambulatory ASHKAN BOCANEGRA Not Available Start: 12-21-2023 End: 12-21-2023 ambulatory STANLEY SAUNDERS Not Available Start: 12-18-2023 End: 12-19-2023 ambulatory Jadyn Wyman MD Facility: [facility] Start: 12-11-2023 End: 12-11-2023 ambulatory KOMAL NGUYEN Not Available Start: 11-29-2023 End: 11-29-2023 ambulatory ALEM DE LEONTERSALL Not Available Start: 11-17-2023 End: 11-17-2023 ambulatory AIDE FERREIRA Not Available Start: 11-16-2023 End: 11-16-2023 ambulatory REAL Butler PARAG Not Available Start: 11-15-2023 End: 11-15-2023 ambulatory [facility] Ambulatory Start: 11-13-2023 End: 11-13-2023 ambulatory ALEM TATTERSALL Not Available Start: 11-08-2023 End: 11-08-2023 ambulatory ALEM TATTERSALL Not Available Start: 11-06-2023 End: 11-06-2023 ambulatory KOMAL NGUYEN Not Available Start: 10-30-2023 End: 10-30-2023 ambulatory ALEM TATTERSALL Not Available Start: 10-25-2023 End: 10-25-2023 ambulatory ALEM TATTERSALL Not Available Start: 10-16-2023 End: 10-16-2023 ambulatory ALEM TATTERSALL Not Available Start: 10-11-2023 End: 10-12-2023 ambulatory KOMAL NGUYEN Facility:[facility] Start: 10-09-2023 End: 10-09-2023 ambulatory ALEM TATTERSALL Not Available Start: 10-05-2023 End: 10-05-2023 Assay of hemosiderin, quant Komal Nguyen MD Work Phone: [facility] Work Phone: Start: 10-05-2023 End: 10-05-2023 Patient encounter procedure Komal Nguyen MD Work Phone: [facility] Comment on above: Routine general medi nabila examination at health care facility (Primary Dx); ACP (advance care planning); Osteoarthritis of spine with radiculopathy, cervical region; Type 2 diabetes mellitus with diabetic neuropathy, without long-term current use of insulin ([facility]); Type 2 diabetes 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, without long-term current use of insulin (CMS/HCC); Myasthenia gravis without (acute) exacerbation (G70.00); 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 (CMS/HCC); Morbid (severe) obesity due to excess calories (E66.01); Body mass index [BMI] 45.0-49.9, adult (Z68.42) Start: 10-05-2023 End: 10-05-2023 ambulatory KOMAL NGUYEN Not Available Start: 10-04-2023 Bamboo flowsheet Alem Sampson P TA [facility] Start: 10-04-2023 Bamboo flowsheet Alem Sampson P TA [facility] Start: 10-04-2023 End: 10-04-2023 ambulatory Alem Sampson COLLECTION TEAM LEAD [facility] Comment on above: Bilateral leg weakne ss (Primary Dx); Difficulty walking; Right leg pain Start: 09-28-2023 End: 09-28-2023 ambulatory Anderson Mckinnon [employer]LECTION TEAM LEAD [facility] Comment on above: Bilateral leg weakne ss (Primary Dx); Difficulty walking; Right leg pain Start: 09-25-2023 Telephone encounter Komal kelly MD Work Phone: [facility] Start: 09-25-2023 End: 09-25-2023 ambulatory ANDERSON MCKINNON Not Available Start: 09-21-2023 End: 09-21-2023 ambulatory Anderson Mckinnon COLLECTION TEAM LEAD [facility] Comment on above: Bilateral leg weakne ss (Primary Dx); Difficulty walking; Right leg pain Start: 09-20-2023 End: 09-20-2023 ambulatory [facility] Ambulatory Start: 09-20-2023 End: 09-20-2023 Office outpatient visit 25 minutes Baltazar Hoover DO Work Phone: [facility] Comment on above: Paroxysmal atrial fi brillation (CMS/HCC); Pulmonary embolism, unspecified chronicity, unspecified pulmonary embolism type, unspecified whether acute cor pulmonale present (CMS/HCC); Myasthenia gravis (CMS/HCC); High risk medication use; Essential hypertension; Mixed hyperlipidemia; Morbid obesity with BMI of 45.0-49.9, adult (CMS/HCC) Start: 09-18-2023 End: 09-18-2023 ambulatory ALEM SAMPSON Not Available Start: 09-14-2023 End: 09-14-2023 ambulatory Komalescobar Nguyen Facility:[facility] Start: 09-13-2023 End: 09-13-2023 ambulatory ANDERSON MCKINNON Not Available Start: 09-11-2023 End: 09-11-2023 ambulatory DARINEL SMITH Not Available Start: 09-07-2023 End: 09-07-2023 ambulatory REAL TUTTLE Not Available Start: 08-03-2023 End: 08-03-2023 ambulatory KOMAL NGUYEN Not Available Start: 06-28-2023 End: 06-28-2023 ambulatory KOMAL NGUYEN Not Available Start: 05-21-2023 End: 06-10-2023 Evaluation and management of inpatient Komalescobar Nguyen Facility:[facility] Start: 05-21-2023 End: 06-10-2023 Evaluation and management of inpatient II Komalescobar Nguyen Work Phone: [facility] [place] [facility] Work Phone: Start: 05-19-[address] Komal Nguyen II Facility:[id number] Start: 05-18-[address] Komal Nguyen II Facility:[id number] Start: 05-16-[address] Komal Nguyen II Facility:[id number] Start: 05-11-2023 End: 05-21-2023 Evaluation and management of inpatient Chau Lara Facility:[facility] Start: 05-10-2023 End: 05-21-2023 Evaluation and management of inpatient II Komal Nguyen Work Phone: [facility] [place] [facility] Work Phone: Start: 03-09-2023 End: 03-10-2023 ambulatory II Komal Nguyen Work Phone: [facility] Work Phone: Start: 03-09-2023 End: 03-09-2023 Departed Referred II Komal Nguyen Work Phone: [facility] Start: 12-08-2022 End: 12-09-2022 ambulatory Ivan Barnhart Facility:[facility] Start: 11-21-2022 End: 12-07-2022 ambulatory Ivan Barnhart Facility:[facility] Start: 10-31-2022 End: 11-18-2022 ambulatory Ivan Barnhart Facility:[facility] Start: 10-19-2022 End: 10-28-2022 ambulatory Ivan Barnhart Facility:[facility] Start: 10-15-2022 End: 10-18-2022 Evaluation and management of inpatient KOMAL NGUYEN [facility] Start: 10-15-2022 End: 10-18-2022 Evaluation and management of inpatient Honorio Vuong MD Work Phone: [facility] [[email or web address]] Renal//Med Surg Start: 09-07-2022 Office outpatient vi sit 25 minutes Melonie Rizvi [employer]OR SPECIALIST[employer] Work Phone: [facility] 600 DO Work Phone: Start: 09-07-2022 Patient encounter procedure Melonie Rizvi [employer]OR SPECIALIST[employer] PERSON Work Phone: [facility] 250 DO Work Phone: Start: 09-07-[address] Komal Nguyen II Facility: Start: 08-30-2022 End: 08-30-2022 ambulatory II Komal Nguyen Work Phone: [facility] Work Phone: Start: 08-30-2022 End: 08-30-2022 Departed Referred II Komal Nguyen Work Phone: [facility] Start: 06-28-2022 End: 06-28-2022 ambulatory II Komal Nguyen Work Phone: [facility] Work Phone: Start: 06-28-2022 End: 06-28-2022 Departed Referred II Komal Nguyen Work Phone: [facility] Start: 06-14-2022 End: 06-14-2022 ambulatory II Komal Nguyen Work Phone: [facility] Work Phone: Start: 06-14-2022 End: 06-14-2022 Departed Referred II Komal Nguyen Work Phone: [facility] Start: 05-06-2022 ambulatory Celso Peñaloza MD , PhD Work Phone: Urology Start: 05-06-2022 End: 05-06-2022 Patient encounter procedure Celso Peñaloza MD, PhD Work Phone: Urology Comment on above: Malignant neoplasm o f overlapping sites of bladder (HCC) (Primary Dx) Start: 03-29-2022 End: 03-30-2022 ambulatory Yoko Rizvi Facility:[facility] Start: 03-29-2022 End: 03-29-2022 Patient encounter procedure Yoko Rizvi Jr. [facility] Start: 03-29-2022 ambulatory Yoko Rizvi Facility:[facility] Start: 03-03-2022 End: 03-03-2022 ambulatory Yoko Rizvi Facility:[facility] Start: 03-03-2022 End: 03-03-2022 Admission to same day surgery center [facility] Rizvi Jr[facility] Start: 02-17-2022 End: 02-18-2022 ambulatory Yoko Rizvi Facility:[facility] Start: 02-17-2022 End: 02-17-2022 Patient encounter procedure Yoko Rizvi Jr[facility] Start: 02-01-2022 End: 02-02-2022 ambulatory Yoko Rizvi Facility:[facility] Start: 02-01-2022 End: 02-01-2022 Patient encounter procedure Yoko Rizvi Jr. [facility] Start: 01-21-2022 End: 01-22-2022 ambulatory MASHA KLEINRY Facility:[facility] Start: 01-21-2022 End: 01-21-2022 Lab Drop off MASHA LEY [facility] Start: 01-21-2022 End: 01-21-2022 Patient encounter procedure Yoko Rizvi Jr. [facility] Start: 01-18-2022 End: 01-19-2022 ambulatory Yoko Rizvi Facility:[facility] Start: 01-18-2022 End: 01-18-2022 Patient encounter procedure Yoko Rizvi Jr. [facility] Start: 01-12-2022 End: 01-13-[address] YOKO RIZVI JR Facility:[facility] Start: 01-11-2022 Encounter for preprocedural cardiovascular examination DR YOKO RIZVI JR [facility] Start: 01-11-2022 Encounter for preprocedural laboratory examination DR YOKO RIZVI JR [facility] Start: 01-08-[address] YOKO RIZVI JR Fa cility:[facility] Start: 01-05-2022 End: 01-06-[address] YOKO RIZVI JR Facility:[facility] Start: 01-05-2022 End: 01-06-2022 Encounter for preprocedural cardiovascular examination DR YOKO RIZVI JR Facility:[facility] Start: 12-27-2021 End: 12-28-2021 ambulatory Yoko Rizvi Facility:[facility] [place] Start: 12-27-2021 End: 12-27-2021 Patient encounter procedure Yoko Rizvi Jr. [facility] [place] Start: 12-15-2021 End: 12-16-[address] YOKO RIZVI JR Facility:[facility] Start: 12-07-2021 ambulatory Yoko Rizvi Facility:[facility] Start: 12-07-2021 End: 12-08-2021 ambulatory Yoko Rizvi [facility] Start: 12-07-2021 End: 12-07-2021 Patient encounter procedure Yoko Rizvi Jr. [facility] Start: 11-05-2021 ambulatory Yoko Rizvi Facility:[facility] Start: 05-25-2021 End: 05-25-[address] KOMAL NGUYEN Facility:[facility] Start: 04-19-2021 End: 04-20-[address] KOMAL NGUYEN Facility:[facility] Start: 02-09-2021 End: 02-10-2021 ambulatory ASHKAN BOCANEGRA Facility:[facility] Start: 01-11-2018 Ambulatory BALTAZAR GOMES Facil [id number] Start: 01-08-2018 Ambulatory OLIVIA HALL Facility :[id number] Imaging result normal Melonie Rizvi [employer]OR SPECIALIST[employer]ERSON Work Phone: [facility] 250 DO Work Phone: Procedures Date Procedure Procedure Detail Performing Clinician Start: 11-15-2023 HOLTER OR EVENT CARD IAC MONITOR BALTAZAR HOOVER Start: 09-20-2023 ECG 12-LEAD BALTAZAR RAMSAY Start: 09-20-2023 Ecg routine ecg w/le ast 12 lds w/i&r Baltazar Hoover DO Work Phone: Start: 05-25-2023 Duplex scan of lower limb veins II Komal Nguyen Work Phone: Start: 05-16-2023 Bacterial ID (NA Mul tiplex Assay) II Komal Nguyen Work Phone: Start: 05-16-2023 Blood culture for ba cteria, including anaerobic screen II Komal Nguyen Work Phone: Start: 05-16-2023 Urine culture II Komal Nguyen Work Phone: Start: 05-15-2023 Plain chest X-ray II Amador Nguyen Work Phone: Start: 05-14-2023 Plain chest X-ray II Amador Nguyen Work Phone: Start: 05-13-2023 Plain chest X-ray II Amador Nguyen Work Phone: Start: 05-12-2023 Aerobic microbial culture II Komal Nguyen Work Phone: Start: 05-12-2023 Investigation of tra nsfusion reaction II Komal Nguyen Work Phone: Start: 05-12-2023 Plain chest X-ray II Amador Nguyen Work Phone: Start: 05-11-2023 Plain chest X-ray II Amador Nguyen Work Phone: Start: 05-10-2023 Diagnostic radiograp hy of abdomen II Komal Nguyen Work Phone: Start: 10-18-2022 Basic metabolic pane l calcium total Jordan Gibbs MD Work Phone: Start: 10-17-2022 Basic metabolic pane l calcium total Jordan Gibbs MD Work Phone: Start: 10-16-2022 Culture bacterial quanttative colony count urine Honorio Vuong MD Work Phone: Start: 10-16-2022 Urnls dip stick/tabl et rgnt auto w/o microscopy Honorio Vuong MD Work Phone: Start: 10-16-2022 Blood count complete auto&auto difrntl wbc Ector Diaz MD Work Phone: Start: 10-16-2022 IMMATURE PLATELET FRACTION Ector Diaz MD Work Phone: Start: 10-16-2022 BASIC METABOLIC PANE L W/ REFLEX TO MG FOR LOW K Honorio Vuong MD Work Phone: Start: 10-16-2022 C-reactive protein Tate Vuong MD Work Phone: Start: 10-16-2022 Prothrombin time Brandon Vuong MD Work Phone: Start: 05-06-2022 Urnls dip stick/tabl et reagent auto microscopy Bulk Order Provider Start: 03-03-2022 Cystoscopy and trans urethral resection of bladder tumor Yoko Rizvi Jr. Start: 12-27-2021 Cystoscopy Yoko burnette Jr. Start: 02-16-2017 Transurethral water vapor ablation of prostate Yoko Rizvi Jr. Appendectomy Melonie Russell valdemar [employer]OR SPECIALIST[employer] Work Phone: Cardiac catheterization Alondra Rizvi Jr. Cardiac catheterization Amandeep Rizvi [employer]OR SPECIALIST[employer]ERSON Work Phone: Cataract surgery Melonie Rizvi [employer]ISM MOTOR SPECIALIST[employer] PERSON Work Phone: Entire neck (body structure) Yoko Rizvi Jr. Comment on above: 2016 Excision of neoplasm Melonie B irving Rizvi [employer]OR SPECIALIST[employer] PERSON Work Phone: Comment on above: bladder; Extraction of cataract Horace kwasi Rizvi Jr. Procedure on neck Melonie Rizvi [employer] MOTOR SPECIALIST-[employer]ERSON Work Phone: Total colonoscopy Melonie Rizvi [employer]ISM MOTOR SPECIALIST-[employer] PERSON Work Phone: Comment on above: PROCEDURE DATE 2007; Plan of Treatment Date Care Activity Detail Author Start: 04-27-2025 DIABETES SCREEN [facility]CREEN [facility] Start: 10-05-2024 Medicare Annual Well ness (AWV) Medicare Annual Wellness (AWV) [facility] Start: 09-24-2024 End: 09-24-2024 Patient encounter procedure 09/24/2024 2:20 PM EST Office Visit [facility] [address] [facility] [address] [place] [address] Baltazar Hoover DO [address] [facility] [address] [place] [address] [facility] Start: 03-19-2024 End: 03-19-2024 Patient encounter procedure 03/19/2024 1:00 PM EDT Office Visit [address] [place] [address] Melonie Rizvi, AUTISM MOTOR SPECIALIST[employer] PERSON [address] [facility] [address] [place] [address] [facility] Start: 12-24-2023 Hemoglobin A1c measurement Diabetes: Hemoglobin A1C [facility] Start: 11-16-2023 End: 11-16-2023 Patient encounter procedure 11/16/2023 3:40 PM EDT Procedure Visit [facility] [address] [place] [address] Real Tuttle DPM [address] [facility] [address] [place] [address] [facility] Start: 11-15-2023 End: 09-20-2024 Holter monitor study Holter Or Event Home Agent Cardiac Services Routine Paroxysmal atrial fibrillation ([facility]/HCC) Expected: 11/15/2023, Expires: 09/20/2024 [facility] Service Area Work Phone: Comment on above: Expected: 11/15/2023 , Expires: 09/20/2024 Start: 11-15-2023 End: 11-15-2023 Professional / ancillary services management 11/15/2023 1:00 PM EDT Ancillary Procedure [address] [place] [address] [facility] Start: 10-09-2023 End: 10-09-2023 ambulatory [facility] Start: 10-05-2023 End: 10-05-2023 Patient encounter procedure 10/05/2023 1:15 PM EST Office Visit [facility] [address] [place] [address] Komal Nguyen MD [address] [facility] [address] [place] [address] [facility] [facility] Start: 10-04-2023 End: 10-04-2023 ambulatory [facility] Comment on above: Arrived Start: 09-28-2023 End: 09-28-2023 ambulatory 09/28/2023 1:30 PM EST Treatment [facility] [address] [facility] [address] [place] [id number] Anderson Mckinnon, USMAN [facility] Start: 09-25-2023 End: 09-25-2024 CBC W Auto Differential panel - Blood CBC and differential Lab Routine Paroxysmal atrial fibrillation (CMS/HCC) Expected: 09/25/2023 (Approximate), Expires: 09/25/2024 [facility] Comment on above: Expected: 09/25/2023 (Approximate), Expires: 09/25/2024 Start: 09-25-2023 End: 09-25-2024 Comprehensive metabolic 2000 panel - Serum or Plasma Comprehensive metabolic panel Lab Routine Benign essential hypertension (CMS/HCC) Expected: 09/25/2023 (Approximate), Expires: 09/25/2024 [facility] Comment on above: Expected: 09/25/2023 (Approximate), Expires: 09/25/2024 Start: 09-25-2023 End: 09-25-2024 Hemoglobin A1c measurement Hemoglobin A1c Lab Routine Type 2 diabetes mellitus with diabetic neuropathy, without long-term current use of insulin (CMS/HCC) Expected: 09/25/2023 (Approximate), Expires: 09/25/2024 [facility] Work Phone: Comment on above: Expected: 09/25/2023 (Approximate), Expires: 09/25/2024 Start: 09-25-2023 End: 09-25-2024 Lipid 1996 panel - Serum or Plasma Lipid panel Lab Routine Type 2 diabetes mellitus with diabetic neuropathy, without long-term current use of insulin (CMS/HCC) Benign essential hypertension (CMS/HCC) Expected: 09/25/2023 (Approximate), Expires: 09/25/2024 [facility] Comment on above: Expected: 09/25/2023 (Approximate), Expires: 09/25/2024 Start: 09-25-2023 End: 09-25-2024 TSH W/REFLEX TO FT4 TSH W/REFLEX TO FT4 Lab Routine Type 2 diabetes mellitus with diabetic neuropathy, without long-term current use of insulin ([facility]) Expected: 09/25/2023 (Approximate), Expires: 09/25/2024 [facility] Comment on above: Expected: 09/25/2023 (Approximate), Expires: 09/25/2024 Start: 09-25-2023 End: 09-25-2023 ambulatory 09/25/2023 12:30 PM EST Treatment [facility] [address] [place] [address] Anderson Mckinnon PTA [facility] Start: 08-24-2023 FUV, Provider: Baltazar Hoover, Status: Pen, Time: 11:10 AM FUV, Provider: Baltazar Hoover, Status: Pen, Time: 11:10 AM [place] [id number] DO Work Phone: Start: 07-01-2023 Hemoglobin A1c measurement Diabetes: Hemoglobin A1C [facility] Start: 06-10-2023 [facility] Start: 05-22-2023 [facility] Start: 05-21-2023 [facility] Start: 05-21-2023 Administration of prophylactic treatment [facility] Start: 05-21-2023 Hospital admission [facility] Start: 05-21-2023 Referral to clinical digital media planner [facility] Start: 05-21-2023 [facility] Start: 05-18-2023 Administration of prophylactic treatment [facility] Start: 05-18-2023 [facility] Start: 05-16-2023 Referral to rehabilitation physician [facility] Start: 05-16-2023 [facility] Start: 05-11-2023 Consultation [facility] Start: 05-11-2023 Hospital admission [facility] Start: 05-11-2023 Referral to neurologist [facility] Start: 05-10-2023 Respiratory Ventilat ion, Greater than 96 Consecutive Hours Respiratory Ventilation, Greater than 96 Consecutive Hours [facility] Start: 04-21-2023 COVID-19 Vaccine ( season) COVID-19 Vaccine ( season) [facility] Start: 04-21-2022 Influenza vaccination INFLUENZA (#1) [facility] Start: 03-21-2022 Influenza vaccination Flu vaccine (# 1) [facility] Start: 09-25-2021 COVID-19 VACCINE (4 - Booster for Pfizer series) COVID-19 VACCINE (4 - Booster for Pfizer series) [facility] Start: 08-21-2021 ADVANCE DIRECTIVE DISCUSSION ADVANCE DIRECTIVE DISCUSSION [facility] Start: 08-17-2021 Urine screening for protein Diabetes: Urine Protein Screening [facility] Start: 07-19-2021 COVID-19 Vaccine (4 - Booster for Pfizer series) COVID-19 Vaccine (4 - Booster for Pfizer series) [facility] Start: 07-03-2012 Zoster Vaccines (2 of 3) Zoste r Vaccines (2 of 3) [facility] Start: 2008 PNEUMOCOCCAL: 65+ (1 - PCV) PNEUMOCOCCAL: 65+ (1 - PCV) [facility] Start: 1993 SHINGRIX VACCINE (1 of 2) SHINGRIX VACCINE (1 of 2) [facility] Start: 1965 DTaP/Tdap/Td Vaccine s (1 - Tdap) DTaP/Tdap/Td Vaccines (1 - Tdap) [facility] Start: 1962 DTaP/Tdap/Td vaccine (1 - Tdap) DTaP/Tdap/Td vaccine (1 - Tdap) [facility] Start: 1962 Urine microalbumin profile DTAP,TDAP,TD (1 - Tdap) [facility] Start: 1961 Diabetes mellitus screening Diabetes Screening [facility] Start: 1961 HEPATITIS C SCREENING HEPATITIS C [facility] Start: 1961 Hepatitis C screening Hepatitis C [facility] Start: 1955 Adult depression screening assessment DEPRESSION SCREENING [facility] Start: 1953 Glaucoma screening Diabetes: R etinopathy Screening [facility] Start: 1943 Lipid panel Lipid Panel [facility] Start: 1943 Medicare Annual Well ness (AWV) Medicare Annual Wellness (AWV) [facility] Start: 1943 Medicare Annual Well ness Visit Medicare Annual Wellness Visit (AWV) [facility] Start: 1943 Thyroid stimulating hormone measurement TSH Level [facility] End: 11-06-2022 Basic metabolic 2000 panel - Serum or Plasma Basic Metabolic Panel Lab Routine Daily for 3 Weeks starting 10/17/2022 until 11/06/2022, 2 completed [employer] Phone: Comment on above: Daily for [address] arting 10/17/2022 until 11/06/2022, 2 completed End: 11-06-2022 CBC panel - Blood by Automated count CBC Lab Routine Daily for 3 Weeks starting 10/17/2022 until 11/06/2022, 2 completed [employer] Phone: Comment on above: Daily for [address] arting 10/17/2022 until 11/06/2022, 2 completed Home BIPAP or CPAP Home BIPAP or CPAP Respiratory Care Routine Daily until discontinued starting 10/17/2022 [employer] Phone: Comment on above: Daily until disconti nued starting 10/17/2022 End: 10-15-2022 Intermittent pulse oximetry Pulse Oximetry Spot Check Respiratory Care Routine Continuous until discontinued starting 10/15/2022 [employer] Phone: Comment on above: Continuous until dis continued starting 10/15/2022 Oxygen therapy [[facility] Data Set] Initiate Oxygen Therapy Protocol Respiratory Care Routine As Needed until discontinued starting 10/15/2022 [employer] Phone: Comment on above: As Needed until disc ontinued starting 10/15/2022 Patient Education Myasthenia Gravis (DC) [facility] Work Phone: Patient referral [facility] Work Phone: [facility] Immunizations Immunization Date Immunization Notes Care Provider Fa martinety 06-22-2023 Influenza, High-dose Seasonal, Quadrivalent, Preservative Free Anderson Mckinnon [facility] 07-21-[address] 12 Years And Older Anderson Mckinnon [facility] 07-21-2022 Pfizer COVID-19 Vac Bivalent 30 MCG/0.3ML Intramuscular Suspension Melonie Rizvi [employer]IST[employer] PERSON Work Phone: [facility] 250 DO Work Phone: 07-13-2022 Fluzone High-Dose Quadrivalent 0.7 ML Intramuscular Suspension Prefilled Syringe Melonie Rizvi [employer]OR SPECIALIST[employer] PERSON Work Phone: [place] [id number] DO Work Phone: 05-25-2021 Pfizer-BioNTech COVI D-19 Vacc 30 MCG/0.3ML Intramuscular Suspension Melonie Rizvi [employer]ISM MOTOR SPECIALIST[employer] PERSON Work Phone: [place] [address] DO Work Phone: 05-20-2021 Fluad Quadrivalent 0 .5 ML Intramuscular Prefilled Syringe Melonie Rizvi [employer] MOTOR SPECIALIST[employer] PERSON Work Phone: [place] [address] DO Work Phone: 05-20-2021 Seasonal, trivalent, recombinant, injectable influenza vaccine, preservative free Anderson Mckinnon [facility] 02-18-2021 SARS-CoV-2 (COVID-19 ) mRNA BNT-162b2 vax Yoko Rizvi Jr. [facility] 11-10-2020 Pfizer-BioNTech COVI D-19 Vacc 30 MCG/0.3ML Intramuscular Suspension Melonie Rizvi [employer] MOTOR SPECIALIST[employer] PERSON Work Phone: [facility] 250 DO Work Phone: 10-19-2020 Pfizer-BioNTech COVI D-19 Vacc 30 MCG/0.3ML Intramuscular Suspension Melonie Rizvi AUTISM MOTOR SPECIALIST[employer] PERSON Work Phone: [facility] 250 DO Work Phone: 09-21-2020 SARS-CoV-2 (COVID-19 ) mRNA BNT-162b2 olegarioalvarado Yoko Autumn Molina [facility] 08-21-2020 SARS-CoV-2 (COVID-19 ) mRNA BNT-162b2 vax Yoko Rizvi Jr. [facility] 05-06-2020 influenza, high dose seasonal, preservative-free Melonie Rizvi [employer]OR SPECIALIST[employer] Work Phone: [place] [address] DO Work Phone: 05-06-2020 Influenza, High-dose Seasonal, Quadrivalent, Preservative Free Anderson Mckinnon [facility] 04-21-2020 influenza virus vacc ine, unspecified formulation Melonie Rizvi [employer]OR SPECIALIST[employer] Work Phone: [place] [address] DO Work Phone: 04-21-2020 influenza, seasonal, injectable Baltazar Hoover DO Work Phone: [facility] Work Phone: 05-27-2019 influenza, high dose seasonal, preservative-free Baltazar Hoover DO Work Phone: [facility] Work Phone: 05-27-2019 Influenza, High-dose Seasonal, Quadrivalent, Preservative Free Anderson Mckinnon [facility] 05-21-2019 influenza virus vacc ine, unspecified formulation Melonie Rizvi [employer] MOTOR SPECIALIST[employer] PERSON Work Phone: [place] [address] DO Work Phone: 05-21-2019 influenza, seasonal, injectable Baltazar Hoover DO Work Phone: [facility] Work Phone: 05-23-2018 influenza, high dose seasonal, preservative-free Melonie Rizvi [employer]ISM MOTOR SPECIALIST[employer] PERSON Work Phone: [facility] DO Work Phone: 05-23-2018 Influenza, High-dose Seasonal, Quadrivalent, Preservative Free Anderson Mckinnon [facility] 11-30-2017 pneumococcal polysaccharide vaccine, 23 valent Melonie Grijalvakwasi Rizvi [employer]ISM MOTOR SPECIALIST-[employer] PERSON Work Phone: [facility] 06-27-2017 influenza, high dose seasonal, preservative-free Melonie Grijalvakwasi Rizvi AUTISM MOTOR SPECIALIST-[employer] PERSON Work Phone: [facility] 250 DO Work Phone: 05-21-2017 pneumococcal vaccine , unspecified formulation Melonie Hanleykwasi Rizvi AUTISM MOTOR SPECIALIST[employer] PERSON Work Phone: [facility] 250 DO Work Phone: 05-17-2017 influenza, high dose seasonal, preservative-free Melonietoni Grijalvakwasi Rizvi [employer]ISM MOTOR SPECIALIST[employer] PERSON Work Phone: [facility] DO Work Phone: 05-17-2017 Influenza, High-dose Seasonal, Quadrivalent, Preservative Free Anderson Mckinnon [facility] 05-21-2016 pneumococcal conjuga te vaccine, 13 valent Melonie Rizvi [employer] MOTOR SPECIALIST[employer] PERSON Work Phone: [facility] DO Work Phone: 10-26-2015 pneumococcal conjuga te vaccine, 13 valent Melonie Rizvi [employer]ISM MOTOR SPECIALIST[employer] PERSON Work Phone: [facility] DO Work Phone: 05-22-2015 seasonal influenza, intradermal, preservative free Anderson Mckinnon [facility] 05-30-2014 seasonal influenza, intradermal, preservative free Anderson Mckinnon [facility] 05-08-2012 zoster vaccine, live Anderson Mckinnon [facility] 10-19-2004 pneumococcal polysaccharide vaccine, 23 valent Anderson Mckinnon [facility] Payers Date Payer Category Payer Self-pay [id number] 2022 Unknown 2016 Private Health Insurance [facility] AARP SUPPLEMENT [id number] 2016-Present [phone] [address] [place] [address] Indemnity [id number] 2008 Medicare [id number] 1959 Medicare [id number] 1959 Unknown [id number] 1943 Unknown [id number] 2.16.840.1.600177.3.579.2 .593 1943 Unknown [id number] 2.16.840.1.141074.3.579.2 .593 1943 Unknown [id number] 2.16.840.1.450895.3.579.2 .593 1943 Unknown [id number] 2.16.840.1.788976.3.579.2 .593 1943 Unknown [id number] 2.16.840.1.438297.3.579.2 .593 1943 Unknown [id number] 2.16.840.1.890824.3.579.2 .593 1943 Unknown [id number] 2.16.840.1.580864.3.579.2 .593 1943 Unknown [id number] 2.16.840.1.860685.3.579.2 .727 1943 Unknown [id number] 2.16.840.1.963640.3.579.2 .727 1943 Unknown [id number] 2.16.840.1.876918.3.579.2 .727 1943 Unknown [id number] 2.16.840.1.178026.3.579.2 .72 1943 Unknown [id number] 2.16.840.1.429983.3.579.2 .1943 Unknown [id number] 2.16.840.1.771907.3.579.2 .1943 Unknown [id number] 2..840.1.950184.3.579.2 1943 Unknown [id number] 2.840.1.462565.3.579.2 1943 Unknown [id number] 2.16840.1.924882.3.579.2 .727 1943 Unknown [id number] 2..840.1.003300.3.579.2 1943 Unknown [id number] 2.840.1.035993.3.579.2 727 1943 Unknown [id number] 2.840.1.251410.3.579.2 .1943 Unknown [id number] 2.16.840.1.340162.3.579.2 .727 1943 Unknown [id number] 2.16.840.1.529015.3.579.2 .175 1943 Unknown [id number] 2.16.840.1.539966.3.579.2 .356 1943 Unknown [id number] 2.16840.1.117709.3.579.2 .356 1943 Unknown [id number] 2.16.840.1.773350.3.579.2 .356 1943 Unknown [id number] 2.16.840.1.997570.3.579.2 .356 1943 Unknown [id number] 2.16.840.1.548945.3.579.2 .356 1943 Unknown [id number] 2.16.840.1.350334.3.579.2 .718 1943 Unknown [id number] 2.16.840.1.799105.3.579.2 .718 1943 Unknown [id number] 2.16840.1.802960.3.579.2 .718 1943 Unknown [id number] 2.16840.1.200923.3.579.2 .718 1943 Unknown [id number] 2.840.1.663079.3.579.2 .718 1943 Unknown [id number] 2.16840.1.909433.3.579.2 .718 1943 Unknown [id number] 2.840.1.901454.3.579.2 .718 1943 Unknown [id number] 2.16840.1.650951.3.579.2 .1244 1943 Unknown [id number] 2.16840.1.591266.3.579.2 .1244 1943 Unknown [id number] 2.16840.1.253275.3.579.2 .196 1943 Unknown [id number] 2.16.840.1.673239.3.579.2 .1259 1943 Unknown [id number] 2.16.840.1.866293.3.579.2 .1259 1943 Unknown [id number] 2.16840.1.051255.3.579.2 .1259 1943 Unknown [id number] 2.16.840.1.317021.3.579.2 .1259 1943 Unknown [id number] 2.16.840.1.903582.3.579.2 .1258 1943 Unknown [id number] 2.16.840.1.440761.3.579.2 .1258 1943 Unknown [id number] 2.16.840.1.029279.3.579.2 .125 1943 Unknown [id number] 2.16.840.1.586403.3.579.2 .1258 1943 Unknown [id number] 2.16.840.1.754873.3.579.2 .1258 1943 Unknown [id number] 2.16.840.1.246759.3.579.2 .1258 1943 Unknown [id number] 2.16.840.1.023148.3.579.2 .125 1943 Unknown [id number] 2.16.840.1.863330.3.579.2 .1258 1943 Unknown [id number] 2.16.840.1.646731.3.579.2 .1258 1943 Unknown [id number] 2.16.840.1.180962.3.579.2 .1258 1943 Unknown [id number] 2.16.840.1.939963.3.579.2 .125 1943 Unknown [id number] 2.16.840.1.891710.3.579.2 .1258 1943 Unknown [id number] 2.16.840.1.661257.3.579.2 .1258 1943 Unknown [id number] 2.16.840.1.508322.3.579.2 .1258 1943 Unknown [id number] 2.16.840.1.847750.3.579.2 .1259 1943 Unknown [id number] 2.16.840.1.699198.3.579.2 .1259 1943 Unknown [id number] 2.16.840.1.154923.3.579.2 .1259 1943 Unknown [id number] 2.16.840.1.053991.3.579.2 .1259 1943 Unknown [id number] 2.16.840.1.638275.3.579.2 .1259 1943 Unknown [id number] 2.16.840.1.045443.3.579.2 .1259 1943 Unknown [id number] 2.16.840.1.902432.3.579.2 .1259 1943 Unknown [id number] 2.16.840.1.659094.3.579.2 .1259 Medicare [id number] Unknown [id number] 2.16.840.1.865663.3.579.2 .531 Unknown [id number] 2.16.840.1.716285.3.579.2 .531 Unknown [id number] 2.16.840.1.474607.3.579.2 .531 Unknown [id number] 2.16.840.1.028185.3.579.2 .531 Social History Date Type Detail Facility Start: 12-07-2021 End: 12-23-2022 Tobacco smoking status Never smoked tobacco (finding) [facility] Start: 03-17-2023 End: 09-20-2023 Sex Assigned At Male [facility] Tobacco smoking status Never [facility] Start: 01-03-2019 End: 12-23-2022 Tobacco use and exposure Smokeless tobacco non-user [facility] Start: 05-06-2022 Alcohol intake Current drinke r of alcohol (finding) [facility] Start: 05-08-2017 History SDOH Alcohol Comment rare [facility] Start: 1945 Sex Assigned At Not on file [facility] Start: 04-26-2022 End: 09-20-2023 Exposure to SARS-CoV-2 (event) Not sure [facility] Work Phone: Start: 1945 Sex Assigned At Male F [facility] Start: 03-17-2023 End: 09-20-2023 Caffeine use Caffeine use -[facility] 250 DO Work Phone: Comment on above: 2 CANS DAILY OF CAFF IENE FREE OR DIET POP; Start: 09-20-2023 Alcohol intake Ex-drinker (finding) [facility] Work Phone: Start: 09-07-2023 End: 10-05-2023 Alcohol intake Lifetime non-drinker (finding) [facility] Within the last year , have you been afraid of your partner or ex-partner? No [facility] Are you now , , , , never or living with a partner? [facility] How often to you hav e a drink containing alcohol? Monthly or less [facility] How many standard drinks containing alcohol do you have on a typical day? 1 or 2 [facility] How often do you hav e 6 or more drinks on 1 occasion? Never [facility] Do you feel stress - tense, restless, nervous, or anxious, or unable to sleep at night because your mind is troubled all the time - these days [OSQ] Only a little [facility] (I/We) worried wheyomaira er (my/our) food would run out before (I/we) got money to buy more. Never true [facility] Goals Date Patient Goal Desired Activity /State Functional Status Date Assessment Result Facility 06-10-2023 Functional status Patient at Baseline [facility] Work Phone: 05-21-2023 Functional status 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 Baseline [facility] Work Phone: 03-29-2022 Functional Status N/A [facility] 02-17-2022 Functional Status No [facility] 02-01-2022 Functional Status N/A [facility] Mental Status Date Assessment Result Facility 06-10-2023 Cognitive function Cognitive Sta tus Patient at Baseline [facility] Work Phone: 05-21-2023 Cognitive function Cognitive Sta tus Patient at Baseline [facility] Work Phone: Clinical Notes 12-07-2021 to 10-05-2023 Komal Nguyen MD - 10/05/2023 1:15 PM ESTTelephone Encounter - Komal Nguyen MD - 09/25/2023 10:15 AM ESTTelephone Encounter - Komal Nguyen MD - 09/25/2023 10:15 AM ESTPatient Instructions Note Date & Type Note Facility 10-05-2023 History of Presen t illness Narrative Subjective : Chief Complaint: Taurus Garcia is an 78 y.o. male here for an annual wellness visit. I have reviewed and reconciled the medication list with the patient today. Current Outpatient Medications Medication Sig Dispense Refill baclofen (Lioresal) 10 MG tablet TAKE 1 TABLET BY MOUTH WITH FOOD OR MILK 3 TIMES DAILY 270 tablet 0 Eliquis 5 MG tablet TAKE 1 TABLET BY MOUTH TWICE DAILY 180 tablet 3 furosemide (Lasix) 20 MG tablet Take 1 tablet (20 mg) by mouth in the morning. 100 tablet 3 gabapentin (Neurontin) 300 MG capsule Take 1 capsule (300 mg) by mouth at bedtime. 30 capsule 5 hydrALAZINE (Apresoline) 50 MG tablet TAKE 1 TABLET BY MOUTH TWICE DAILY WITH FOOD 180 tablet 3 lisinopril 20 MG tablet TAKE 1 TABLET BY MOUTH ONCE DAILY 90 tablet 3 loratadine (Claritin) 10 MG tablet Take 10 mg by mouth in the morning. Multiple Vitamins-Minerals (GNP ONE DAILY MENS 50+ADVANCED PO) take 1 tablet by ORAL route every day with food Oral nebivolol (Bystolic) 10 MG tablet Take 10 mg by mouth in the morning. nystatin (Mycostatin) 556554 UNIT/GM powder APPLY TO THE AFFECTED AREA(S) THREE TIMES DAILY FOR 30 DAYS omega-3 (Fish Oil) 1000 MG capsule Take 2 capsules by mouth in the morning. potassium chloride CR (Klor-Con M10) 10 MEQ ER tablet TAKE 1 TABLET BY MOUTH ONCE DAILY WITH FOOD 90 tablet 3 predniSONE (Deltasone) 10 MG tablet Take 1.5 tablets by mouth in the morning. pyridostigmine (Mestinon) 60 MG tablet Take 60 mg by mouth in the morning and 60 mg at noon and 60 mg in the evening and 60 mg before bedtime. simvastatin (Zocor) 40 MG tablet TAKE 1 TABLET BY MOUTH ONCE DAILY IN THE EVENING 90 tablet 3 triamterene-hydrochlorothiazide (Maxzide-25) 37.5-25 MG tablet Take 1 tablet by mouth in the morning. No current facility-administered medications for this visit. Review of Systems Constitutional: Positive for fatigue. Negative for appetite change and unexpected weight change. Respiratory: Negative for cough, chest tightness and shortness of breath. Cardiovascular: Negative for chest pain, palpitations and leg swelling. Gastrointestinal: Negative for abdominal pain, nausea and vomiting. Genitourinary: Negative for difficulty urinating, hematuria and urgency. List of current healthcare providers: Patient Care Team: Komal Nguyen MD as PCP - General (Internal Medicine) Komal Nguyen MD as PCP - [facility] Medicare Annual Visit Over the past 2 weeks, how often have you been bothered by any of the following problems? Little interest or pleasure in doing things: Not at all Feeling down, depressed, or hopeless: Not at all Patient Health Questionnaire-2 Score: 0 Mondragon Fall Risk History of Falling, Immediate or Within 3 Months: No Secondary Diagnosis: No Ambulatory Aid: Walks without aid/bedrest/nurse assist Health Risk Assessment Form Do you need help eating, bathing, using the toilet, dressing, or getting around your home?: No Can you prepare your own meals?: Yes Can you do your own housework without help?: Yes Can you shop for groceries or clothes without help?: Yes Do you exercise for about 20 minutes 3 or more days a week?: No How confident are you that you can control and manage most of your health problems?: Very confident Can you mange your money, credit cards and accounts, pay bills and taxes?: Yes Cognitive Screening Three Word Registration: Banana, [place], Chair Clock Drawing: Normal Clock - 2 Three Word Recall: All 3 words correct - 3 Total Score (0-5 Points): 5 Pain Assessment Pain Score: 4 Advance Care Planning Do you have a living will?: Yes Do you have a medical power of associate attorney?: Yes Who is your medical power of associate attorney?: --gabrielle Objective : BP 134/82 Pulse 58 Ht 5' 10 Wt 315 lb SpO2 96% BMI 45.20 kg/m No results found. Physical Exam Constitutional: Appearance: He is obese. Cardiovascular: Rate and Rhythm: Normal rate and regular rhythm. Heart sounds: Normal heart sounds. No murmur heard. Pulmonary: Effort: Pulmonary effort is normal. No respiratory distress. Breath sounds: No wheezing or rhonchi. Abdominal: General: Abdomen is flat. Bowel sounds are normal. Palpations: Abdomen is soft. Musculoskeletal: Right lower leg: Edema present. Left lower leg: Edema present. Neurological: General: No focal deficit present. Mental Status: He is alert and oriented to person, place, and time. Motor: Weakness present. Gait: Gait abnormal. Psychiatric: Mood and Affect: Mood normal. Behavior: Behavior normal. Thought Content: Thought content normal. Judgment: Judgment normal. Assessment/Plan : The following health maintenance schedule was reviewed with the patient and provided in printed form in the after visit summary: Health Maintenance Topic Date Due Diabetes: Retinopathy Screening Never done Diabetes: Urine Protein Screening 08/17/2021 Diabetes: Hemoglobin A1C 12/24/2023 Medicare Annual Wellness (AWV) 10/05/2024 Influenza Vaccine Completed Pneumococcal Vaccine: 65+ Years Completed Advance Care Planning Patient agreed to discuss advance care planning at today's wellness visit. We discussed that an advance directive is a legal document that only goes into effect if the patient is incapacitated and unable to speak for himself or herself. This would help healthcare providers to ensure that the patient gets the care that he or she wishes to receive. The goal is to provide a patient with the best possible quality of life. Encouraged patient to obtain a living will and durable power of associate attorney for healthcare. We discussed telling garcia people about their advance directives such as close family members, and requested a copy to scan into the patient's EHR. An advance directive packet was offered to the patient. Assessment/Plan Diagnoses and all orders for this visit: Routine general medical examination at health care facility ACP (advance care planning) Osteoarthritis of spine with radiculopathy, cervical region - potassium chloride CR (Klor-Con M10) 10 MEQ ER tablet; Take 1 tablet (10 mEq) by mouth in the morning and 1 tablet (10 mEq) before bedtime. Take with food.. Type 2 diabetes mellitus with diabetic neuropathy, without long-term current use of insulin (CMS/HCC) - gabapentin (Neurontin) 300 MG capsule; Take 1 capsule (300 mg) by mouth in the morning and 1 capsule (300 mg) before bedtime. Type 2 diabetes 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, without long-term current use of insulin (CMS/HCC) Myasthenia gravis without (acute) exacerbation (G70.00) 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 (CMS/HCC) Morbid (severe) obesity due to excess calories (E66.01) Body mass index [BMI] 45.0-49.9, adult (Z68.42) Follow up in about 4 months (around 02/03/2024) for Routine F/U. No orders of the defined types were placed in this encounter. Electronically signed by Komal Nguyen MD on October 05, 2023 documented in this encounter [facility] 09-28-2023 Note [id number] 09-25-2023 Telephone encounter Note Lab order. [facility] 09-25-2023 Miscellaneous Notes Lab order. documented in this encounter [facility] 09-20-2023 History of Presen t illness Narrative Subjective Taurus Garcia is a 77 y.o. male Chief Complaint Follow-up 77-year-old gentleman returns for follow-up he is doing well, he has had no recurrent thromboembolic events or hospitalizations. He had myasthenia gravis crisis in April associated with respiratory failure and complicated by paroxysmal atrial fibrillation treated effectively with amiodarone and apixaban. He remains on both. He is still undergoing physical therapy and Occupational Therapy. This is the first and only episode of atrial fibrillation. He has had PE in the past treated conservatively with DOAC therapy. Long conversation with him and his today in regards to atrial fibrillation and potential for recurrence as well as treatment, and the fact that this is likely associated with a very stressful/inflammatory event. At this juncture I believe we can discontinue amiodarone and follow his rhythm clinically and objectively with Holter monitoring; if there is any recurrence, we can reinitiate antiarrhythmic therapy as necessary, he can continue Eliquis therapy indefinitely, follow-up with Holter monitoring in 8 weeks, follow-up with nurse practitioner in 3 to 6 months. Original reason for my seeing him was his PE several years ago however now secondary to his A-fib that he developed briefly in April. Review of Systems Respiratory: Positive for shortness of breath. All other systems reviewed and are negative. Visit Vitals BP 130/74 (BP Location: Right arm, Patient Position: Sitting) Pulse 53 Ht 1.727 m (5' 8 ) Wt 142 kg (313 lb) BMI 47.59 kg/m Smoking Status Never BSA 2.61 m Objective Physical Exam Constitutional: Appearance: Normal appearance. He is normal weight. HENT: Nose: Nose normal. Neck: Vascular: No carotid bruit. Cardiovascular: Rate and Rhythm: Normal rate. Pulses: Normal pulses. Heart sounds: Normal heart sounds. Pulmonary: Effort: Pulmonary effort is normal. Abdominal: General: Bowel sounds are normal. Palpations: Abdomen is soft. Genitourinary: Rectum: Normal. Musculoskeletal: General: Normal range of motion. Cervical back: Normal range of motion. Right lower leg: No edema. Left lower leg: No edema. Skin: General: Skin is warm and dry. Neurological: General: No focal deficit present. Mental Status: He is alert. Psychiatric: Mood and Affect: Mood normal. Behavior: Behavior normal. Thought Content: Thought content normal. Judgment: Judgment normal. Current Medications Current Outpatient Medications: apixaban (Eliquis) 5 mg tablet, Take 1 tablet (5 mg) by mouth 2 times a day., Disp: , Rfl: baclofen (Lioresal) 10 mg tablet, TAKE 1 TABLET 3 TIMES DAILY NEEDED FOR MUSCLE SPASM., Disp: , Rfl: furosemide (Lasix) 20 mg tablet, Take 1 tablet (20 mg) by mouth once daily., Disp: , Rfl: gabapentin (Neurontin) 300 mg capsule, Take 1 capsule (300 mg) by mouth once daily at bedtime., Disp: , Rfl: hydrALAZINE (Apresoline) 50 mg tablet, Take 1 tablet (50 mg) by mouth 2 times a day., Disp: , Rfl: lisinopril 20 mg tablet, Take 1 tablet (20 mg) by mouth once daily., Disp: , Rfl: loratadine 10 mg capsule, Take 1 capsule by mouth once daily., Disp: , Rfl: multivit-min/ferrous fumarate (MULTI VITAMIN ORAL), Take 1 tablet by mouth once daily., Disp: , Rfl: nebivolol (Bystolic) 10 mg tablet, Take 1 tablet (10 mg) by mouth once daily., Disp: , Rfl: omega 0-xfy-wpc-fish oil 360 mg-108 mg- 180 mg-1,200 mg capsule, TAKE DIRECTED., Disp: , Rfl: potassium chloride CR 10 mEq ER tablet, Take 1 tablet (10 mEq) by mouth once daily. Emergency refill, Disp: , Rfl: predniSONE (Deltasone) 10 mg tablet, Take 1 tablet (10 mg) by mouth once daily., Disp: , Rfl: pyridostigmine (Mestinon) 60 mg tablet, Take 1 tablet (60 mg) by mouth 4 times a day., Disp: , Rfl: simvastatin (Zocor) 40 mg tablet, Take 1 tablet (40 mg) by mouth once daily at bedtime., Disp: , Rfl: triamterene-hydrochlorothiazid (Maxzide-25) 37.5-25 mg tablet, Take 1 tablet by mouth once daily., Disp: , Rfl: Scribe Attestation By signing my name below, Connie Ma LPN , Scribe attest that this documentation has been prepared under the direction and in the presence of Baltazar Hoover DO. Assessment/Plan 1. Paroxysmal atrial fibrillation ([facility]) 2. Pulmonary embolism, unspecified chronicity, unspecified pulmonary embolism type, unspecified whether acute cor pulmonale present ([facility]) 3. Myasthenia gravis ([facility]) 4. High risk medication use 5. Essential hypertension 6. Mixed hyperlipidemia 7. Morbid obesity with BMI of 45.0-49.9, adult ([facility]) documented in this encounter [facility] Work Phone: 09-20-2023 Instructions Connie Morejon LPN - 09/20/2023 11:40 AM EST Please bring all medicines, vitamins, and herbal supplements with you when you come to the office. Prescriptions will not be filled unless you are compliant with your follow up appointments or have a follow up appointment scheduled as per instruction of your physician. Refills should be requested at the time of your visit. EKG done in office today Off amio,stop amio testing documented in this encounter [facility] Work Phone: 09-14-2023 Note [facility] SURGERY Clinical Discharge Summary PERSON INFORMATION Name TAURUS GARCIA Age 77 Years 1945 Sex MALE Language Uzbek PCP KOMAL NGUYEN Marital Status Med Service Ambulatory Surgery Acct# Arrival 09/14/2023 13:50:55 Visit Reason SURGERY - CYSTO BLADDER BIOPSY Acuity LOS 035 01:49 Address: [address] [place] [id number] Comment: PROVIDER INFORMATION VITALS INFORMATION Vital Sign Triage Latest Temp Oral Temp Temporal Temp Intravascular Temp Axillary Temp Rectal 02 Sat 97 % 97 % Respiratory Rate Peripheral Pulse Rate Apical Heart Rate Blood Pressure / 65 mmHg / 68 mmHg Comment: MEDICAL INFORMATION Allergy Info: No known allergies Prescriptions Given: amiodarone (amiodarone 200 mg oral tablet) 1 tab(s) Oral (given by mouth) every day. apixaban (Eliquis 5 mg oral tablet) 1 tab(s) Oral (given by mouth) 2 times a day (scheduled). baclofen (baclofen 10 mg oral tablet) 1 tab(s) Oral (given by mouth) 3 times a day (scheduled). furosemide (furosemide 20 mg oral tablet) 1 cap(s) Oral (given by mouth) every day. gabapentin (gabapentin 300 mg oral capsule) 1 cap(s) Oral (given by mouth) every day. hydrALAZINE (hydrALAZINE 50 mg oral tablet) 2 tab(s) Oral (given by mouth) every day. hydrochlorothiazide-triamterene (hydrochlorothiazide-triamteren e 25 mg-37.5 mg oral capsule) 1 cap(s) Oral (given by mouth) every day. lisinopril (lisinopril 20 mg oral tablet) 1 tab(s) Oral (given by mouth) every day. multivitamin (Multivitamin, generic) 1 tab(s) Oral (given by mouth) every day. nebivolol (nebivolol 10 mg oral tablet) 1 tab(s) Oral (given by mouth) every day. omega-3 polyunsaturated fatty acids (Fish Oil 1200 mg oral capsule) 2 tab(s) Oral (given by mouth) every day. potassium chloride (Potassium Chloride (Eqv-K-Tab) 10 mEq oral tablet, extended release) 1 tab(s) Oral (given by mouth) every day. predniSONE (predniSONE 10 mg oral tablet) 1 tab(s) Oral (given by mouth) every day. pyridostigmine (pyridostigmine 60 mg oral tablet) 1 tab(s) Oral (given by mouth) 4 times a day. simvastatin (simvastatin 40 mg oral tablet) 1 tab(s) Oral (given by mouth) once a day (at bedtime). Medication List: Medications to Continue That Have Not Changed Other Medications amiodarone (amiodarone 200 mg oral tablet) 1 tab(s) Oral (given by mouth) every day. apixaban (Eliquis 5 mg oral tablet) 1 tab(s) Oral (given by mouth) 2 times a day (scheduled). baclofen (baclofen 10 mg oral tablet) 1 tab(s) Oral (given by mouth) 3 times a day (scheduled). furosemide (furosemide 20 mg oral tablet) 1 cap(s) Oral (given by mouth) every day. gabapentin (gabapentin 300 mg oral capsule) 1 cap(s) Oral (given by mouth) every day. hydrALAZINE (hydrALAZINE 50 mg oral tablet) 2 tab(s) Oral (given by mouth) every day. hydrochlorothiazide-triamterene (hydrochlorothiazide-triamteren e 25 mg-37.5 mg oral capsule) 1 cap(s) Oral (given by mouth) every day. lisinopril (lisinopril 20 mg oral tablet) 1 tab(s) Oral (given by mouth) every day. multivitamin (Multivitamin, generic) 1 tab(s) Oral (given by mouth) every day. nebivolol (nebivolol 10 mg oral tablet) 1 tab(s) Oral (given by mouth) every day. omega-3 polyunsaturated fatty acids (Fish Oil 1200 mg oral capsule) 2 tab(s) Oral (given by mouth) every day. potassium chloride (Potassium Chloride (Eqv-K-Tab) 10 mEq oral tablet, extended release) 1 tab(s) Oral (given by mouth) every day. predniSONE (predniSONE 10 mg oral tablet) 1 tab(s) Oral (given by mouth) every day. pyridostigmine (pyridostigmine 60 mg oral tablet) 1 tab(s) Oral (given by mouth) 4 times a day. simvastatin (simvastatin 40 mg oral tablet) 1 tab(s) Oral (given by mouth) once a day (at bedtime). Medications to Continue That Have Not Changed Other Medications amiodarone (amiodarone 200 mg oral tablet) 1 tab(s) Oral (given by mouth) every day. apixaban (Eliquis 5 mg oral tablet) 1 tab(s) Oral (given by mouth) 2 times a day (scheduled). baclofen (baclofen 10 mg oral tablet) 1 tab(s) Oral (given by mouth) 3 times a day (scheduled). furosemide (furosemide 20 mg oral tablet) 1 cap(s) Oral (given by mouth) every day. gabapentin (gabapentin 300 mg oral capsule) 1 cap(s) Oral (given by mouth) every day. hydrALAZINE (hydrALAZINE 50 mg oral tablet) 2 tab(s) Oral (given by mouth) every day. hydrochlorothiazide-triamterene (hydrochlorothiazide-triamteren e 25 mg-37.5 mg oral capsule) 1 cap(s) Oral (given by mouth) every day. lisinopril (lisinopril 20 mg oral tablet) 1 tab(s) Oral (given by mouth) every day. multivitamin (Multivitamin, generic) 1 tab(s) Oral (given by mouth) every day. nebivolol (nebivolol 10 mg oral tablet) 1 tab(s) Oral (given by mouth) every day. omega-3 polyunsaturated fatty acids (Fish Oil 1200 mg oral capsule) 2 tab(s) Oral (given by mouth) every day. potassium chloride (Potassium Chloride (Eqv-K-Tab) 10 mEq oral tablet, extended release) (more content not included)... [facility] 06-10-2023 Discharge summary Note Date/Time June 10, 2023 8:11am [place] [address] Discharge Summary Signed Patient: Taurus Garcia MR#: [id number] : 1945 Acct:[id number] Age/Sex: 77 / M Adm Date: 3 Loc: Room: 1U0519-[address]: Silvestre Grover MD Copies to: MD Silvestre Gonsalves II, MD~ Providers Date of Discharge: 06/10/23 Discharging Provider: Silvestre Grover Primary Care Provider: Komal Nguyen Consults: 05/21/23 14:25 Consult to Adult Hospitalist Routine Consult to Dietitian Routine Consult to Occupational Therapy Routine Consult to Physical Therapy Routine Speech Admit Screen Routine 05/21/23 23:47 Consult to Speech Therapy Routine Discharge Diagnosis (1) Myasthenia gravis in crisis: Final Diagnosis Final Discharge Diagnosis: as above Summary Hospital Course Hospital course: Mr. Garcia is a 77 year old male with past medical history of myasthenia gravis,hypertension, A-fib anticoagulated with Eliquis, PE, CKD, obstructive sleep apnea on BiPAP, who presents to acute inpatient rehab with functional impairments due to MG crisis. Patient presented to [facility] on 05/11/2023 with complaints of worseninggeneralized weakness over the course of several days. He was found to be mildlyhypoxic. Also complaining of urinary symptoms. Initially admitted to [facility] for observation however developed worsening respiratory status with increased secretions and inability to protect own airway and was subsequently intubated and transferred to [facility] for neurology services. Patient received a 5-day course of IVIG per neurology recommendations. Home steroid dose was also escalated; pyridostigmine temporarily placed on hold. Pulmonology was following for vent management. Patient did develop a fever during hospitalization. Blood cultures x2 and sputum culture were negative. Successfully extubated on 05/15/2023. Had a few episodes of atrial fibrillation with RVR requiring amiodarone infusion. Will demonstrated EF of 60 to 65%, mildLVH and trace tricuspid regurgitation. Developed transient bradycardia which have resolved. Cardiology was consulted to assist with A-fib/RVR management. Recommended continuing amiodarone for the next 6 weeks or until resolution of myasthenic crisis. On rehab admission patient is alert, oriented, answering questions appropriately. Voices no specific complaints. Generalized weakness seems to beimproving although still has difficult time moving lower extremities. No other neurologic or cardiopulmonary complaints. Respiratory status is back at baseline. Per patient report, prior to most recent admission he was fully independent and ambulatory without assistive device. He lives with who will be able to assist with ADLs if needed. Rehab Stay: Functional progress throughout his rehabilitation stay was excellent. His Foleycatheter was discontinued and he is continent of bladder. Diet advanced to regular. Mental status to baseline. He progressed from being a Dereck lift to ambulating with a walker. He is now essentially back on all of his home medications. His was present for instruction session prior to discharge. Both are pleased with his progress. Discharged home in stable condition on June 10. Patient was prescribed a front wheeled walker, as they have a mobility limitation that impairs their ability to complete one or more MRADL?s in the home, related to myasthenic crisis They can safely use walker, and their mobility deficit can be resolved with the use of the walker. Condition Condition at Discharge: Stable Status at Discharge Functional status at discharge: uses cane/walker Overall status at discharge: patient is progressing back to baseline Time Spent with Patient Time spent providing/coordinating discharge services (# min): 40 Specific discharge activities: Total time spent discharging this patient > 30 minutes Greater than 30 minutes spent preparing the patient for discharge including the following: Discussion of the hospital stay with patient and/or family Instructions for continuing care to all relevant caregivers Reviewing discharge plan with medical staff, social work, care management, and nursing staff Supervision of discharge paperwork, medication reconciliation, prescriptions, and outpatient appointments Prescribed necessary DME at discharge when indicated Exam Physical Exam Vital Signs: Temp Pulse Resp BP Pulse Ox O2 Del Method O2 Flow Rate 97.2 F L 57 L 18 145/70 H 95 Room Air 2 06/10/23 05:00 06/10/23 05:00 06/10/23 05:00 06/10/23 05:00 06/10/23 05:00 06/10/23 05:00 05/25/23 00:00 Discharge Plan Discharge Plan Patient Disposition: Home Health [facility] Activity: Ambulate as Tolerated Diet: Regular Additional Instructions: -Code status: Full code. -Activity: Ambulate as tolerated. No driving, may ride in car. -Diet: Regular diet. -Eating strategies: Sit upright at 90 degrees with oral intake, small bites/sips, alternate liquids/solids, pacing/slow-rate. -Administer pills whole in applesauce. -Skin care to skin fold redness: Clean with Theraworx protect and apply Nystatinpowder twice daily. -Wound care to left thigh blister: May leave open to air as long as there is no drainage present. -Wound care to right thigh blister: Apply Mepilex Border Foam and change every 3days and as needed if dressing becomes soiled or falls off. -Skin care to coccyx: May apply Mepilex Border Foam for added protection, and change every 3 days and as needed if dressing becomes soiled or falls off. -Continue to wear your CPAP at bedtime, as you were at home prior. Your [facility] Health agency is [facility] ( ). They will contact you 24-48 hours after discharge to schedule a day/time to meet withyou at your home to establish care. You have been given prescriptions for new and/or needed medications. These prescriptions are for a one-time fill only, with no re-fills. For further re-fills going forward, you will need to address with your PCP at your follow up appointment, or by calling your PCP?s office prior to the prescriptions running out. NOTE: please call within 24 hours if you need to cancel or change any follow up appointments. Arrive early to all follow up appointments, bring current medication list, photo ID and any insurance card(s) to all future follow ups (listed below). Please remember to wear a mask to all appointments. If you develop any symptoms (cough, fever/chills, shortness of breath, sore throat, nausea/vomiting, etc.) please contact your provider's office to inform them prior to your appointment. The covid booster was not available for the inpatient units during your hospitalization. Feel free to call and check back for vaccine availability ([phone]). Prescriptions: New nystatin [Nystop] 100,000 unit/gram Powder 1 applic topical TID 30 Days Qty: 1 0RF Eliquis 5 mg Tablet 5 mg PO Q12H Qty: 0 0RF Continued furosemide 20 mg tablet 20 mg PO DAILY nebivolol 10 mg tablet 10 mg PO DAILY amiodarone 200 mg Tablet 200 mg PO QAM 30 Days Qty: 30 12RF lisinopril 20 mg tablet 20 mg PO DAILY Patient Comments: simvastatin 40 mg tablet 40 mg PO HS Patient Comments: hydralazine 50 mg tablet 50 mg PO BID Patient Comments: loratadine [Allergy Relief (loratadine)] 10 mg Tablet 10 mg PO DAILY Adults 50 Plus 0.4-300-250 mg-mcg-mcg Tablet 1 tab PO DAILY omega-3 fatty acids-fish oil [Fish Oil] 360-1,200 mg Capsule 1 cap PO BID prednisone 10 mg tablet 10 mg PO DAILY 30 Days Qty: 30 0RF Patient Comments: pyridostigmine bromide 60 mg tablet 1 tab PO QID 30 Days Qty: 120 0RF triamterene-hydrochlorothiazid [Maxzide-25mg] 37.5-25 mg tablet 1 tab PO DAILY 30 Days Qty: 30 0RF potassium chloride 10 mEq tablet,ER particles/crystals 10 meq PO DAILY 30 Days Qty: 30 0RF Discontinued apixaban 5 mg (74 tabs) tablets,dose pack 5 mg PO Q12H Other Ambulatory Orders: Initiate Home Health (Routine) Timeframe: 20230606 Location: Determined by Patient Ordered By: Silvestre Grover Initiate Home Health (Routine) Timeframe: 1 Day Location: Determined by Patient Ordered By: Silvestre Reilly DME Home Medical Equipment (Routine) Timeframe: 20230607 Location: Determined by Patient Ordered By: Silvestre Grover Follow Up: Pat Hoover DO [Active Staff - D.O.] - 08/24/23 11:10 am Komal Nguyen II, MD [Primary Care Provider] - (Will need to call for appt whenyou get home, left message office was closed) Jamel Packer DO [Courtesy/Consulting Physician] - 06/26/23 9:00 am (Neuro- Dr Saunders- already established ) Silvestre Grover MD [Active Staff] - (follow up with rehab physician as/if needed) Documented By: Silvestre Grover MD 06/10/23806 Signed By: <Electronically signed by Silvestre Grover MD> 06/10/23810 [facility] Work Phone: 1(830) 579-250710-19-2023 Progress note Author Jarret Garza [facility] June 08, 2023 7:01am Note Date/Time June 07, 2023 5 :18pm [facility] [address] [place] [address] Hospitalist Progress Note Signed Patient: Taurus Garcia MR#: [id number] : 1945 Acct:[id number] Age/Sex: 77 / M Adm Date: 3 Loc: Room: [address] [place] [address] Type: ADM IN Attending Dr: Silvestre Grover MD Copies to: ~ Date of Service: 06/07/2023 Subjective Subjective Narrative: Seen and evaluated on follow-up. Resting comfortably in bed, continues to do well with physical therapy. Denies any pain or discomfort. Reports that he bilateral lower extremity edema has significantly improved, is ambulating well. Vital signs reviewed, blood pressure well controlled. No new labs to review. No new issues. Exam Physical Exam Vital Signs: Temp Pulse Resp BP Pulse Ox O2 Del Method O2 Flow Rate 98.2 F 71 18 127/68 91 L Room Air 2 06/07/23 05:56 06/07/23 09:44 06/07/23 05:56 06/07/23 09:44 06/07/23 09:44 06/07/23 10:37 05/25/23 00:00 Narrative: CONST-morbidly obese, cooperative, comfortably sitting in bed CARDIAC-normal rate, regular rhythm, normal S1 & S2. PULM-diminished without wheeze or rhonchi, RA, no accessory muscle use or cough noted ABD - Soft. Bowel sounds are normal. Obese no tenderness EXTREM-+3 edema BLE calves nontender SKIN- W/D good turgor Objective Lab Results 05/30/23 05:16 05/30/23 05:16 Meds Allergies and Active Meds Allergies No Known Allergies Allergy (Verified 12/27/17 16:51) Active Meds: Active Medications Generic Name Dose Route Start Last Admin Trade Name Freq PRN Reason Stop Dose Admin Acetaminophen 500 mg 05/21/23 14:25 Acetaminophen 500 Mg Tablet PO 05/20/24 14:24 Q4H PRN Pain Al Hydrox/Mg Hydrox/Simethicone 30 ml 05/21/23 14:25 Mag Hydrox/Al Hydrox/Simeth 30 Ml Udc PO 05/20/24 14:24 Q4H PRN Indigestion Amiodarone HCl 200 mg 05/22/23 09:00 06/07/23 09:38 Amiodarone 200 Mg Tablet PO 05/21/24 08:59 200 mg QAM DORI Administration Apixaban 5 mg 05/21/23 17:30 06/07/23 17:02 Apixaban 5 Mg Tablet PO 05/20/24 17:29 5 mg Q12H DORI Administration Atorvastatin Calcium 20 mg 05/21/23 22:00 06/06/23 21:48 Atorvastatin 20 Mg Tablet PO 05/20/24 21:59 20 mg HS DORI Administration Bisacodyl 10 mg 05/21/23 14:25 Bisacodyl 10 Mg Supp.Rect DE 05/20/24 14:24 DAILY PRN Constipation Docusate Sodium 100 mg 05/21/23 14:25 Docusate 100 Mg Capsule PO 05/20/24 14:24 BID PRN Constipation Docusate Sodium 283 mg 05/21/23 14:25 Docusate Enema 283 Mg/5 Ml Enema DE 05/20/24 14:24 DAILY PRN Constipation Fish Oil 1,000 mg 05/21/23 21:00 06/07/23 09:38 [place]-3/Fish Oil 1,000 Mg Capsule PO 05/20/24 20:59 1,000 mg BID DORI Administration Furosemide 20 mg 05/22/23 09:00 06/07/23 09:39 Furosemide 20 Mg Tablet PO 05/21/24 08:59 20 mg DAILY DORI Administration Hydralazine HCl 50 mg 05/21/23 21:00 06/07/23 09:38 Hydralazine 50 Mg Tablet PO 05/20/24 20:59 50 mg BID DORI Administration Lactulose 30 gm 05/21/23 14:25 Lactulose 20 Gm/30 Ml Udc PO 05/20/24 14:24 DAILY PRN Constipation Lisinopril 20 mg 05/22/23 09:00 06/07/23 09:39 Lisinopril 20 Mg Tablet PO 05/21/24 08:59 20 mg DAILY DORI Administration Loperamide HCl 2 mg 05/21/23 21:10 05/25/23 09:55 Loperamide Liquid 2 Mg/15 Ml Udc PO 05/20/24 21:09 2 mg Q2H PRN Administration Loose Stool Loratadine 10 mg 05/22/23 09:00 06/07/23 09:38 Loratadine 10 Mg Tablet PO 05/21/24 08:59 10 mg DAILY DORI Administration Nebivolol 10 mg 05/22/23 09:00 06/07/23 09:40 Nebivolol 5 Mg Tablet PO 05/21/24 08:59 10 mg DAILY DORI Administration Nystatin 1 applic 05/22/23 09:00 06/07/23 14:04 Nystatin 100,000 Unit/Gram Powder 15 Gm Bottle TOPICAL 05/21/24 08:59 1 applic TID DORI Administration Potassium Chloride 10 meq 05/22/23 09:00 06/07/23 09:40 Potassium Chloride Liquid 20 Meq/15 Ml Udc PO 05/21/24 08:59 10 meq DAILY DORI Administration Prednisone 10 mg 05/22/23 09:00 06/07/23 09:38 Prednisone 10 Mg Tablet PO 05/21/24 08:59 10 mg DAILY DORI Administration Psyllium Hydrophilic Mucilloid 1 packet 06/01/23 09:00 06/07/23 09:40 Psyllium Husk 3.4 Gm Packet PO 05/31/24 08:59 Not Given DAILY DORI Pyridostigmine [place] 60 mg 05/21/23 18:00 06/07/23 17:02 Pyridostigmine [place] 60 Mg Tablet PO 05/20/24 17:59 60 mg QID DORI Administration Saccharomyces Boulardii 250 mg 05/30/23 21:00 06/07/23 09:40 Saccharomyces Boulardii 250 Mg Capsule PO 05/29/24 20:59 250 mg BID DORI Administration Sennosides 2 tab 05/22/23 12:00 Sennosides 8.6 Mg Tablet PO 05/21/24 11:59 DAILY@12 PRN If no BM in 2 days Triamterene/Hydrochlorothiazide 1 tab 05/22/23 09:00 06/07/23 09:40 Triamterene/Hctz 37.5-25mg 1 Tab Tablet PO 05/21/24 08:59 1 tab DAILY DORI Administration A&P - Hospitalist Assessment/Plan (1) Myasthenia gravis in crisis: Plan Myasthenia gravis crisis ?POC per PMR team for rehabilitative therapy, pain control bowel regimen, DVT PPx ?Pyridostigmine and prednisone Bilateral lower extremity edema improved ?Continue furosemide, BLESSING hose and leg elevation -Venous duplex 05/25 negative for DVT Chronic conditions: 1. Atrial fibrillation/hypertension? amiodarone, lisinopril, hydralazine, furosemide, nebivolol, Maxide, blood pressure well controlled 2. Hx pulmonary embolism?apixaban 3. HLD? atorvastatin Documented By: Susanne Sharma APRN 06/07/23 1714 Signed By: <Electronically signed by ZACH Sharma> 06/07/23 1736 <Electronically signed by Jarret Garza MD> 06/08/23 0701 [facility] Work Phone: 1(774) 946-668110-18-2023 Progress note Author Silvestre Grover [facility] June 07, 2023 3:10pm Note Date/Time June 07, 2023 1 :12pm [facility] [address] [place] [address] Physiatry(Rehab) Progress Note Signed Patient: Taurus Garcia MR#: [id number] : 1945 Acct:[id number] Age/Sex: 77 / M Adm Date: 3 Loc: Room: 4V4194-6 Type: ADM IN Attending Dr: Silvestre Grover MD Copies to: ~ <Antonia Grier APRN - Last Filed: 06/07/23 13:25> Date of Service: 06/07/2023 Subjective <Antonia Grier APRN - Last Filed: 06/07/23 13:25> Subjective Narrative: Mr. Garcia is a 77 year old male with past medical history of myasthenia gravis,hypertension, A-fib anticoagulated with Eliquis, PE, CKD, obstructive sleep apnea on BiPAP, who presents to acute inpatient rehab with functional impairments due to MG crisis. Patient presented to [facility] on 05/11/2023 with complaints of worseninggeneralized weakness over the course of several days. He was found to be mildlyhypoxic. Also complaining of urinary symptoms. Initially admitted to [facility] for observation however developed worsening respiratory status with increased secretions and inability to protect own airway and was subsequently intubated and transferred to [facility] for neurology services. Patient received a 5-day course of IVIG per neurology recommendations. Home steroid dose was also escalated; pyridostigmine temporarily placed on hold. Pulmonology was following for vent management. Patient did develop a fever during hospitalization. Blood cultures x2 and sputum culture were negative. Successfully extubated on 05/15/2023. Had a few episodes of atrial fibrillation with RVR requiring amiodarone infusion. Will demonstrated EF of 60 to 65%, mildLVH and trace tricuspid regurgitation. Developed transient bradycardia which have resolved. Cardiology was consulted to assist with A-fib/RVR management. Recommended continuing amiodarone for the next 6 weeks or until resolution of myasthenic crisis. On rehab admission patient is alert, oriented, answering questions appropriately. Voices no specific complaints. Generalized weakness seems to beimproving although still has difficult time moving lower extremities. No other neurologic or cardiopulmonary complaints. Respiratory status is back at baseline. Per patient report, prior to most recent admission he was fully independent and ambulatory without assistive device. He lives with who will be able to assist with ADLs if needed. Interval History: Patient seen and evaluated in his room. He is alert, pleasant, cooperative. Reports no pain or discomfort. Harrell catheter was removed this morning, no voidso far. No symptoms at this time. Continues to make functional goals in therapy. Ambulatory 100 feet with a walker and standby assist. SBA for transfers and bed mobility. Plan remains to DC home with family on Sunday 06/10. Review of Systems <Antonia Grier APRN - Last Filed: 06/07/23 13:25> Review of Systems All other systems reviewed & are negative unless noted below or in HPI Exam <Antonia Grier APRN - Last Filed: 06/07/23 13:25> Physical Exam Vital Signs: Temp Pulse Resp BP Pulse Ox O2 Del Method O2 Flow Rate 98.2 F 71 18 127/68 91 L Room Air 2 06/07/23 05:56 06/07/23 09:44 06/07/23 05:56 06/07/23 09:44 06/07/23 09:44 06/07/23 10:37 05/25/23 00:00 Narrative: General: Awake, alert, oriented x3 HENT: Normal to inspection, normocephalic, atraumatic Eyes: PERRL, normal conjunctiva and sclera Neck: Normal ROM, normal visual inspection. Trachea midline. Cardio: Irregular heart rate then rhythm Respiratory: Clear to auscultation bilaterally. Normal respiratory effort. No respiratory distress. GI: Abdomen obese, soft, nontender, nondistended, active bowel sounds x4 quadrants Neuro: CN II-XII intact. Strength 5/5, equal bilaterally Extremities: No edema, erythema, cyanosis. Upper extremity strength 4+/5, lowerextremity strength 1+/5. Psych: Mood and affect appropriate. Normal speech. Objective <Antonia Grier APRN - Last Filed: 06/07/23 13:25> Labs 05/30/23 05:16 05/30/23 05:16 Medications and Allergies Allergies and Active Meds: Allergies No Known Allergies Allergy (Verified 12/27/17 16:51) Active Medications Generic Name Dose Route Start Last Admin Trade Name Freq PRN Reason Stop Dose Admin Acetaminophen 500 mg 05/21/23 14:25 Acetaminophen 500 Mg Tablet PO 05/20/24 14:24 Q4H PRN Pain Al Hydrox/Mg Hydrox/Simethicone 30 ml 05/21/23 14:25 Mag Hydrox/Al Hydrox/Simeth 30 Ml Udc PO 05/20/24 14:24 Q4H PRN Indigestion Amiodarone HCl 200 mg 05/22/23 09:00 06/07/23 09:38 Amiodarone 200 Mg Tablet PO 05/21/24 08:59 200 mg QAM DORI Administration Apixaban 5 mg 05/21/23 17:30 06/07/23 06:01 Apixaban 5 Mg Tablet PO 05/20/24 17:29 5 mg Q12H DORI Administration Atorvastatin Calcium 20 mg 05/21/23 22:00 06/06/23 21:48 Atorvastatin 20 Mg Tablet PO 05/20/24 21:59 20 mg HS DORI Administration Bisacodyl 10 mg 05/21/23 14:25 Bisacodyl 10 Mg Supp.Rect DE 05/20/24 14:24 DAILY PRN Constipation Docusate Sodium 100 mg 05/21/23 14:25 Docusate 100 Mg Capsule PO 05/20/24 14:24 BID PRN Constipation Docusate Sodium 283 mg 05/21/23 14:25 Docusate Enema 283 Mg/5 Ml Enema DE 05/20/24 14:24 DAILY PRN Constipation Fish Oil 1,000 mg 05/21/23 21:00 06/07/23 09:38 [place]-3/Fish Oil 1,000 Mg Capsule PO 05/20/24 20:59 1,000 mg BID DORI Administration Furosemide 20 mg 05/22/23 09:00 06/07/23 09:39 Furosemide 20 Mg Tablet PO 05/21/24 08:59 20 mg DAILY DORI Administration Hydralazine HCl 50 mg 05/21/23 21:00 06/07/23 09:38 Hydralazine 50 Mg Tablet PO 05/20/24 20:59 50 mg BID DORI Administration Lactulose 30 gm 05/21/23 14:25 Lactulose 20 Gm/30 Ml Udc PO 05/20/24 14:24 DAILY PRN Constipation Lisinopril 20 mg 05/22/23 09:00 06/07/23 09:39 Lisinopril 20 Mg Tablet PO 05/21/24 08:59 20 mg DAILY DORI Administration Loperamide HCl 2 mg 05/21/23 21:10 05/25/23 09:55 Loperamide Liquid 2 Mg/15 Ml Udc PO 05/20/24 21:09 2 mg Q2H PRN Administration Loose Stool Loratadine 10 mg 05/22/23 09:00 06/07/23 09:38 Loratadine 10 Mg Tablet PO 05/21/24 08:59 10 mg DAILY DORI Administration Nebivolol 10 mg 05/22/23 09:00 06/07/23 09:40 Nebivolol 5 Mg Tablet PO 05/21/24 08:59 10 mg DAILY DORI Administration Nystatin 1 applic 05/22/23 09:00 06/07/23 09:41 Nystatin 100,000 Unit/Gram Powder 15 Gm Bottle TOPICAL 05/21/24 08:59 1 applic TID DORI Administration Potassium Chloride 10 meq 05/22/23 09:00 06/07/23 09:40 Potassium Chloride Liquid 20 Meq/15 Ml Udc PO 05/21/24 08:59 10 meq DAILY DORI Administration Prednisone 10 mg 05/22/23 09:00 06/07/23 09:38 Prednisone 10 Mg Tablet PO 05/21/24 08:59 10 mg DAILY DORI Administration Psyllium Hydrophilic Mucilloid 1 packet 06/01/23 09:00 06/07/23 09:40 Psyllium Husk 3.4 Gm Packet PO 05/31/24 08:59 Not Given DAILY DORI Pyridostigmine [place] 60 mg 05/21/23 18:00 06/07/23 09:39 Pyridostigmine [place] 60 Mg Tablet PO 05/20/24 17:59 60 mg QID DORI Administration Saccharomyces Boulardii 250 mg 05/30/23 21:00 06/07/23 09:40 Saccharomyces Boulardii 250 Mg Capsule PO 05/29/24 20:59 250 mg BID DORI Administration Sennosides 2 tab 05/22/23 12:00 Sennosides 8.6 Mg Tablet PO 05/21/24 11:59 DAILY@12 PRN If no BM in 2 days Triamterene/Hydrochlorothiazide 1 tab 05/22/23 09:00 06/07/23 09:40 Triamterene/Hctz 37.5-25mg 1 Tab Tablet PO 05/21/24 08:59 1 tab DAILY DORI Administration Assessment/Plan <Antonia Grier, AUTISM MOTOR SPECIALIST - Last Filed: 06/07/23 13:25> Assessment/Plan (1) Atrial fibrillation: Code(s): I48.91 - Unspecified atrial fibrillation Status: Acute (2) Morbid obesity with BMI of 50.0-59.9, adult: Code(s): E66.01 - Morbid (severe) obesity due to excess calories; Z68.43 - Body mass index [BMI] 50.0-59.9, adult Status: Acute (3) Impaired mobility and activities of daily living: Code(s): Z74.09 - Other reduced mobility; Z78.9 - Other specified health status Status: Acute (4) Myasthenia gravis: Code(s): G70.00 - Myasthenia gravis without (acute) exacerbation Status: Acute (5) Myasthenia gravis in crisis: Code(s): G70.01 - Myasthenia gravis with (acute) exacerbation Status: Acute (6) Pulmonary emboli: Code(s): I26.99 - Other pulmonary embolism without acute cor pulmonale Status: Acute (7) Hypertension: Code(s): I10 - Essential (primary) hypertension Status: Acute (8) Hyperlipidemia: Code(s): E78.5 - Hyperlipidemia, unspecified Status: Acute (9) Oropharyngeal dysphagia: Code(s): R13.12 - Dysphagia, oropharyngeal phase Status: Acute Plan 77-year-old male presenting to acute rehab with functional impairments secondary to myasthenic crisis. Initially admitted to [facility] later transferred to [facility] for neurology services. Had to be intubated for airway protection. Successfully extubated on 05/15 and has been tolerating well. * Indwelling catheter removed for a voiding trial this a.m. So far, hasn't had an urge to urinate. Continue prn bladder scans. Straight cath if needed. * Ambulating functional distances with a walker and SBA. Able to do a few steps. Home with family on Sunday 06/10. Patient education Pressure ulcer prophylaxis; encourage mobilization, frequent postural changes, pressure-relief techniques DVT prophylaxis: Continue Eliquis. Encourage deep breathing exercise incentive spirometry. Monitor bladder. Toileting schedule. Continue current bladder management, with scans as needed and CIC if needed. Start bowel care program every day to obtain continence, prevent ileus. Maintain fall precautions Gait and balance retraining Functional training and self-care and home management, including activities of daily living and instrumental activities of daily living Provision of the necessary gait aids and functional adaptive equipment to enhance the patient's a functional holiness Ensure adequate nutrition and hydration Sleep: No concerns. Pain: Continue current regimen Discharge planning: Hopefully home with his end of week/early next week. I spent greater than 15 minutes for services, including [id number] encounter with the patient, discussion of the case, plan of care, and exam; and [id number] activities, such as reviewing pertinent behavioral health consultant documentation, recent therapy notes, laboratory and radiology studies, and discussion of case with care team including physician, nursing, shelter case manager, and therapists. More than 50 % of time was spent on patient/family counseling or coordination of care. <Silvestre Grover MD - Last Filed: 06/07/23 15:10> Assessment/Plan (1) Atrial fibrillation: (2) Morbid obesity with BMI of 50.0-59.9, adult: (3) Impaired mobility and activities of daily living: (4) Myasthenia gravis: (5) Myasthenia gravis in crisis: (6) Pulmonary emboli: (7) Hypertension: (8) Hyperlipidemia: (9) Oropharyngeal dysphagia: Plan: I completed a substantive portion of this encounter, the medical decision making portion of this note in its entirety, including Allied health note review, nursing note review, behavioral health consultant note review, discussion with nursing and case management, and more than 50% of my time was spent on counseling and coordination of care, time spent 25 minutes Patient was personally seen by me, Dr. Grover, on the day of encounter, reviewed the history and the relevant portions of the chart, including current orders, allied health and behavioral health consultant notes, labs/imaging and performed garcia elements of exam and I formulated the plan of care and facilitated the medical decision making. Documented By: Antonia Grier APRN 06/07/23 1 310 Signed By: <Electronically signed by ZACH Grier> 06/07/23 1325 <Electronically signed by Silvestre Grover MD> 06/07/23 4226 [facility] Work Phone: [phone]) 844-896810-17-2023 Progress note Author Silvestre Grover [facility] June 06, 2023 3:59pm Note Date/Time June 06, 2023 3 :59pm [facility] [address] [place] [address] Physiatry(Rehab) Progress Note Signed Patient: Taurus Garcia MR#: [id number] : 1945 Acct:[id number] Age/Sex: 77 / M Adm Date: 3 Loc: 5T Room: 4V2419-4 Type: ADM IN Attending Dr: Silvestre Grover MD Copies to: ~ Date of Service: 06/06/2023 Subjective Subjective Narrative: Mr. Garcia is a 77 year old male with past medical history of myasthenia gravis,hypertension, A-fib anticoagulated with Eliquis, PE, CKD, obstructive sleep apnea on BiPAP, who presents to acute inpatient rehab with functional impairments due to MG crisis. Patient presented to [facility] on 05/11/2023 with complaints of worseninggeneralized weakness over the course of several days. He was found to be mildlyhypoxic. Also complaining of urinary symptoms. Initially admitted to [facility] for observation however developed worsening respiratory status with increased secretions and inability to protect own airway and was subsequently intubated and transferred to [facility] for neurology services. Patient received a 5-day course of IVIG per neurology recommendations. Home steroid dose was also escalated; pyridostigmine temporarily placed on hold. Pulmonology was following for vent management. Patient did develop a fever during hospitalization. Blood cultures x2 and sputum culture were negative. Successfully extubated on 05/15/2023. Had a few episodes of atrial fibrillation with RVR requiring amiodarone infusion. Will demonstrated EF of 60 to 65%, mildLVH and trace tricuspid regurgitation. Developed transient bradycardia which have resolved. Cardiology was consulted to assist with A-fib/RVR management. Recommended continuing amiodarone for the next 6 weeks or until resolution of myasthenic crisis. On rehab admission patient is alert, oriented, answering questions appropriately. Voices no specific complaints. Generalized weakness seems to be improving although still has difficult time moving lower extremities. No other neurologic or cardiopulmonary complaints. Respiratory status is back at baseline. Per patient report, prior to most recent admission he was fully independent and ambulatory without assistive device. He lives with who will be able to assist with ADLs if needed. Interval History: Family instruction went well. The plan is now for home on Monday. Harrell catheter will be discontinued tomorrow for voiding trial. Review of Systems Review of Systems All other systems reviewed & are negative unless noted below or in HPI Exam Physical Exam Vital Signs: Temp Pulse Resp BP Pulse Ox O2 Del Method O2 Flow Rate 98.2 F 67 18 109/67 95 Room Air 2 06/06/23 14:38 06/06/23 14:38 06/06/23 14:38 06/06/23 14:38 06/06/23 14:38 06/06/23 14:38 05/25/23 00:00 Narrative: General: Awake, alert, oriented x3 HENT: Normal to inspection, normocephalic, atraumatic Eyes: PERRL, normal conjunctiva and sclera Neck: Normal ROM, normal visual inspection. Trachea midline. Cardio: Irregular heart rate then rhythm Respiratory: Clear to auscultation bilaterally. Normal respiratory effort. No respiratory distress. GI: Abdomen obese, soft, nontender, nondistended, active bowel sounds x4 quadrants Neuro: CN II-XII intact. Strength 5/5, equal bilaterally Extremities: No edema, erythema, cyanosis. Upper extremity strength 4+/5, lowerextremity strength 3/5 Psych: Mood and affect appropriate. Normal speech. Objective Labs 05/30/23 05:16 05/30/23 05:16 Medications and Allergies Allergies and Active Meds: Allergies No Known Allergies Allergy (Verified 12/27/17 16:51) Active Medications Generic Name Dose Route Start Last Admin Trade Name Freq PRN Reason Stop Dose Admin Acetaminophen 500 mg 05/21/23 14:25 Acetaminophen 500 Mg Tablet PO 05/20/24 14:24 Q4H PRN Pain Al Hydrox/Mg Hydrox/Simethicone 30 ml 05/21/23 14:25 Mag Hydrox/Al Hydrox/Simeth 30 Ml Udc PO 05/20/24 14:24 Q4H PRN Indigestion Amiodarone HCl 200 mg 05/22/23 09:00 06/06/23 10:08 Amiodarone 200 Mg Tablet PO 05/21/24 08:59 200 mg QAM DORI Administration Apixaban 5 mg 05/21/23 17:30 06/06/23 05:36 Apixaban 5 Mg Tablet PO 05/20/24 17:29 5 mg Q12H DORI Administration Atorvastatin Calcium 20 mg 05/21/23 22:00 06/05/23 21:03 Atorvastatin 20 Mg Tablet PO 05/20/24 21:59 20 mg HS DORI Administration Bisacodyl 10 mg 05/21/23 14:25 Bisacodyl 10 Mg Supp.Rect DE 05/20/24 14:24 DAILY PRN Constipation Docusate Sodium 100 mg 05/21/23 14:25 Docusate 100 Mg Capsule PO 05/20/24 14:24 BID PRN Constipation Docusate Sodium 283 mg 05/21/23 14:25 Docusate Enema 283 Mg/5 Ml Enema DE 05/20/24 14:24 DAILY PRN Constipation Fish Oil 1,000 mg 05/21/23 21:00 06/06/23 10:08 [place]-3/Fish Oil 1,000 Mg Capsule PO 05/20/24 20:59 1,000 mg BID DORI Administration Furosemide 20 mg 05/22/23 09:00 06/06/23 10:08 Furosemide 20 Mg Tablet PO 05/21/24 08:59 20 mg DAILY DORI Administration Hydralazine HCl 50 mg 05/21/23 21:00 06/06/23 11:57 Hydralazine 50 Mg Tablet PO 05/20/24 20:59 Not Given BID DORI Lactulose 30 gm 05/21/23 14:25 Lactulose 20 Gm/30 Ml Udc PO 05/20/24 14:24 DAILY PRN Constipation Lisinopril 20 mg 05/22/23 09:00 06/06/23 11:57 Lisinopril 20 Mg Tablet PO 05/21/24 08:59 Not Given DAILY DORI Loperamide HCl 2 mg 05/21/23 21:10 05/25/23 09:55 Loperamide Liquid 2 Mg/15 Ml Udc PO 05/20/24 21:09 2 mg Q2H PRN Administration Loose Stool Loratadine 10 mg 05/22/23 09:00 06/06/23 10:08 Loratadine 10 Mg Tablet PO 05/21/24 08:59 10 mg DAILY DORI Administration Nebivolol 10 mg 05/22/23 09:00 06/06/23 11:57 Nebivolol 5 Mg Tablet PO 05/21/24 08:59 Not Given DAILY DORI Nystatin 1 applic 05/22/23 09:00 06/06/23 14:39 Nystatin 100,000 Unit/Gram Powder 15 Gm Bottle TOPICAL 05/21/24 08:59 1 applic TID DORI Administration Potassium Chloride 10 meq 10/02/23 09:00 06/06/23 10:08 Potassium Chloride Liquid 20 Meq/15 Ml Udc PO 05/21/24 08:59 10 meq DAILY DORI Administration Prednisone 10 mg 05/22/23 09:00 06/06/23 10:08 Prednisone 10 Mg Tablet PO 05/21/24 08:59 10 mg DAILY DORI Administration Psyllium Hydrophilic Mucilloid 1 packet 06/01/23 09:00 06/06/23 10:08 Psyllium Hus[place] 3.4 Gm Packet PO 05/31/24 08:59 Not Given DAILY DORI Pyridostigmine [place] 60 mg 05/21/23 18:00 06/06/23 14:39 Pyridostigmine [place] 60 Mg Tablet PO 05/20/24 17:59 60 mg QID DORI Administration Saccharomyces Boulardii 250 mg 05/30/23 21:00 06/06/23 10:08 Saccharomyces Boulardii 250 Mg Capsule PO 05/29/24 20:59 250 mg BID DORI Administration Sennosides 2 tab 05/22/23 12:00 Sennosides 8.6 Mg Tablet PO 05/21/24 11:59 DAILY@12 PRN If no BM in 2 days Triamterene/Hydrochlorothiazide 1 tab 05/22/23 09:00 06/06/23 11:58 Triamterene/Hctz 37.5-25mg 1 Tab Tablet PO 05/21/24 08:59 Not Given DAILY DORI Assessment/Plan Assessment/Plan (1) Atrial fibrillation: Code(s): I48.91 - Unspecified atrial fibrillation Status: Acute (2) Morbid obesity with BMI of 50.0-59.9, adult: Code(s): E66.01 - Morbid (severe) obesity due to excess calories; Z68.43 - Body mass index [BMI] 50.0-59.9, adult Status: Acute (3) Impaired mobility and activities of daily living: Code(s): Z74.09 - Other reduced mobility; Z78.9 - Other specified health status Status: Acute (4) Myasthenia gravis: Code(s): G70.00 - Myasthenia gravis without (acute) exacerbation Status: Acute (5) Myasthenia gravis in crisis: Code(s): G70.01 - Myasthenia gravis with (acute) exacerbation Status: Acute (6) Pulmonary emboli: Code(s): I26.99 - Other pulmonary embolism without acute cor pulmonale Status: Acute (7) Hypertension: Code(s): I10 - Essential (primary) hypertension Status: Acute (8) Hyperlipidemia: Code(s): E78.5 - Hyperlipidemia, unspecified Status: Acute (9) Oropharyngeal dysphagia: Code(s): R13.12 - Dysphagia, oropharyngeal phase Status: Acute Plan 77-year-old male presenting to acute rehab with functional impairments secondary to myasthenic crisis. Initially admitted to [facility] later transferred to [facility] for neurology services. Had to be intubated for airway protection. Successfully extubated on 05/15 and has been tolerating well. * To progress towards goals. Family instruction went very well. He and his are hopeful for discharge home as early as Monday. * Jh out tomorrow for voiding trial. Bladder scan every 6 hours with CIC greater than 400 cc Patient education Pressure ulcer prophylaxis; encourage mobilization, frequent postural changes, pressure-relief techniques DVT prophylaxis: Continue Eliquis. Encourage deep breathing exercise incentive spirometry. Monitor bladder. Toileting schedule. Continue current bladder management, with scans as needed and CIC if needed. Start bowel care program every day to obtain continence, prevent ileus. Maintain fall precautions Gait and balance retraining Functional training and self-care and home management, including activities of daily living and instrumental activities of daily living Provision of the necessary gait aids and functional adaptive equipment to enhance the patient's a functional holiness Ensure adequate nutrition and hydration Sleep: No concerns. Pain: Continue current regimen Discharge planning: Hopefully home with his end of week/early next week. Plan: I completed a substantive portion of this encounter, the medical decision making portion of this note in its entirety, including Allied health note review, nursing note review, behavioral health consultant note review, discussion with nursing and case management, and more than 50% of my time was spent on counseling and coordination of care, time spent 25 minutes Patient was personally seen by me, Dr. Grover, on the day of encounter, reviewed the history and the relevant portions of the chart, including current orders, allied health and behavioral health consultant notes, labs/imaging and performed garcia elements of exam and I formulated the plan of care and facilitated the medical decision making. Documented By: Silvestre Grover MD 06/06/23 1557 Signed By: <Electronically signed by Silvestre Grover MD> 06/06/23 155 [facility] Work Phone: 1(343) 476-308010-17-2023 Hospital Discharge instructionsAmbulatory Orders* Initiate Home Health Time Frame: 06/06/23, Location: Determined By Patient * Initiate Home Health Time Frame: 1 Day, Location: Determined By Patient Additional Instructions -Code status: Full code. -Activity: Ambulate as tolerated. No driving, may ride in car. -Diet: Regular diet. -Eating strategies: Sit upright at 90 degrees with oral intake, small bites/sips, alternate liquids/solids, pacing/slow-rate. -Administer pills whole in applesauce. -Skin care to skin fold redness: Clean with Theraworx protect and apply Nystatin powder twice daily. -Wound care to left thigh blister: May leave open to air as long as there is no drainage present. -Wound care to right thigh blister: Apply Mepilex Border Foam and change every 3 days and as needed if dressing becomes soiled or falls off. -Skin care to coccyx: May apply Mepilex Border Foam for added protection, and change every 3 days and as needed if dressing becomes soiled or falls off. -Continue to wear your CPAP at bedtime, as you were at home prior. Your Home Health agency is [facility] ( ). They will contact you 24-48 hours after discharge to schedule a day/time to meet with you at your home to establish care. You have been given prescriptions for new and/or needed medications. These prescriptions are for a one-time fill only, with no re-fills. For further re-fills going forward, you will need to address with your PCP at your follow up appointment, or by calling your PCP s office prior to the prescriptions running out. NOTE: please call within 24 hours if you need to cancel or change any follow up appointments. Arrive early to all follow up appointments, bring current medication list, photo ID and any insurance card(s) to all future follow ups (listed below). Please remember to wear a mask to all appointments. If you develop any symptoms (cough, fever/chills, shortness of breath, sore throat, nausea/vomiting, etc.) please contact your provider's office to inform them prior to your appointment. The covid booster was not available for the inpatient units during your hospitalization. Feel free to call and check back for vaccine availability ([phone]).[facility] Work Phone: [phone]) 606-363110-17-2023 Progress note Author Silvestre Grover [facility] June 06, 2023 11:30am Note Date/Time June 05, 2023 1 :16pm [facility] [address] [place] [address] Physiatry(Rehab) Progress Note Signed Patient: Taurus Garcia MR#: [id number] : 1945 Acct:[id number] Age/Sex: 77 / M Adm Date: 3 Loc: Room: [address] [place] [address] Type: ADM IN Attending Dr: Silvestre Grover MD Copies to: ~ Date of Service: 06/05/2023 Subjective Subjective Narrative: Mr. Garcia is a 77 year old male with past medical history of myasthenia gravis,hypertension, A-fib anticoagulated with Eliquis, PE, CKD, obstructive sleep apnea on BiPAP, who presents to acute inpatient rehab with functional impairments due to MG crisis. Patient presented to [facility] on 05/11/2023 with complaints of worseninggeneralized weakness over the course of several days. He was found to be mildlyhypoxic. Also complaining of urinary symptoms. Initially admitted to [facility] for observation however developed worsening respiratory status with increased secretions and inability to protect own airway and was subsequently intubated and transferred to [facility] for neurology services. Patient received a 5-day course of IVIG per neurology recommendations. Home steroid dose was also escalated; pyridostigmine temporarily placed on hold. Pulmonology was following for vent management. Patient did develop a fever during hospitalization. Blood cultures x2 and sputum culture were negative. Successfully extubated on 05/15/2023. Had a few episodes of atrial fibrillation with RVR requiring amiodarone infusion. Will demonstrated EF of 60 to 65%, mildLVH and trace tricuspid regurgitation. Developed transient bradycardia which have resolved. Cardiology was consulted to assist with A-fib/RVR management. Recommended continuing amiodarone for the next 6 weeks or until resolution of myasthenic crisis. On rehab admission patient is alert, oriented, answering questions appropriately. Voices no specific complaints. Generalized weakness seems to be improving although still has difficult time moving lower extremities. No other neurologic or cardiopulmonary complaints. Respiratory status is back at baseline. Per patient report, prior to most recent admission he was fully independent and ambulatory without assistive device. He lives with who will be able to assist with ADLs if needed. Interval History: Continues to do well. No events over the weekend. Harrell will come out in a few days. Walking 125'. will be present for FI tomorrow. Review of Systems Review of Systems All other systems reviewed & are negative unless noted below or in HPI Exam Physical Exam Vital Signs: Temp Pulse Resp BP Pulse Ox O2 Del Method O2 Flow Rate 98.2 F 59 L 12 100/55 L 92 L Room Air 2 06/05/23 09:45 06/05/23 09:45 06/05/23 09:45 06/05/23 09:45 06/05/23 09:45 06/05/23 09:46 05/25/23 00:00 Narrative: General: Awake, alert, oriented x3 HENT: Normal to inspection, normocephalic, atraumatic Eyes: PERRL, normal conjunctiva and sclera Neck: Normal ROM, normal visual inspection. Trachea midline. Cardio: Irregular heart rate then rhythm Respiratory: Clear to auscultation bilaterally. Normal respiratory effort. No respiratory distress. GI: Abdomen obese, soft, nontender, nondistended, active bowel sounds x4 quadrants Neuro: CN II-XII intact. Strength 5/5, equal bilaterally Extremities: No edema, erythema, cyanosis. Upper extremity strength 4+/5, lowerextremity strength 3/5 Psych: Mood and affect appropriate. Normal speech. Objective Labs 05/30/23 05:16 05/30/23 05:16 Medications and Allergies Allergies and Active Meds: Allergies No Known Allergies Allergy (Verified 12/27/17 16:51) Active Medications Generic Name Dose Route Start Last Admin Trade Name Freq PRN Reason Stop Dose Admin Acetaminophen 500 mg 05/21/23 14:25 Acetaminophen 500 Mg Tablet PO 05/20/24 14:24 Q4H PRN Pain Al Hydrox/Mg Hydrox/Simethicone 30 ml 05/21/23 14:25 Mag Hydrox/Al Hydrox/Simeth 30 Ml Udc PO 05/20/24 14:24 Q4H PRN Indigestion Amiodarone HCl 200 mg 05/22/23 09:00 06/05/23 08:01 Amiodarone 200 Mg Tablet PO 05/21/24 08:59 200 mg QAM DORI Administration Apixaban 5 mg 05/21/23 17:30 06/05/23 05:49 Apixaban 5 Mg Tablet PO 05/20/24 17:29 5 mg Q12H DORI Administration Atorvastatin Calcium 20 mg 05/21/23 22:00 06/04/23 21:02 Atorvastatin 20 Mg Tablet PO 05/20/24 21:59 20 mg HS DORI Administration Bisacodyl 10 mg 05/21/23 14:25 Bisacodyl 10 Mg Supp.Rect DE 05/20/24 14:24 DAILY PRN Constipation Docusate Sodium 100 mg 05/21/23 14:25 Docusate 100 Mg Capsule PO 05/20/24 14:24 BID PRN Constipation Docusate Sodium 283 mg 05/21/23 14:25 Docusate Enema 283 Mg/5 Ml Enema DE 05/20/24 14:24 DAILY PRN Constipation Fish Oil 1,000 mg 05/21/23 21:00 06/05/23 08:04 [place]-3/Fish Oil 1,000 Mg Capsule PO 05/20/24 20:59 1,000 mg BID DORI Administration Furosemide 20 mg 05/22/23 09:00 06/05/23 08:01 Furosemide 20 Mg Tablet PO 05/21/24 08:59 20 mg DAILY DORI Administration Hydralazine HCl 50 mg 05/21/23 21:00 06/05/23 08:02 Hydralazine 50 Mg Tablet PO 05/20/24 20:59 50 mg BID DORI Administration Lactulose 30 gm 05/21/23 14:25 Lactulose 20 Gm/30 Ml Udc PO 05/20/24 14:24 DAILY PRN Constipation Lisinopril 20 mg 05/22/23 09:00 06/05/23 08:01 Lisinopril 20 Mg Tablet PO 05/21/24 08:59 20 mg DAILY DORI Administration Loperamide HCl 2 mg 05/21/23 21:10 05/25/23 09:55 Loperamide Liquid 2 Mg/15 Ml Udc PO 05/20/24 21:09 2 mg Q2H PRN Administration Loose Stool Loratadine 10 mg 05/22/23 09:00 06/05/23 11:18 Loratadine 10 Mg Tablet PO 05/21/24 08:59 10 mg DAILY DORI Administration Nebivolol 10 mg 05/22/23 09:00 06/05/23 08:02 Nebivolol 5 Mg Tablet PO 05/21/24 08:59 10 mg DAILY DORI Administration Nystatin 1 applic 05/22/23 09:00 06/05/23 08:04 Nystatin 100,000 Unit/Gram Powder 15 Gm Bottle TOPICAL 05/21/24 08:59 1 applic TID DORI Administration Potassium Chloride 10 meq 05/22/23 09:00 06/05/23 08:01 Potassium Chloride Liquid 20 Meq/15 Ml Udc PO 05/21/24 08:59 10 meq DAILY DORI Administration Prednisone 10 mg 05/22/23 09:00 06/05/23 08:02 Prednisone 10 Mg Tablet PO 05/21/24 08:59 10 mg DAILY DORI Administration Psyllium Hydrophilic Mucilloid 1 packet 06/01/23 09:00 06/05/23 08:00 Psyllium Husk 3.4 Gm Packet PO 05/31/24 08:59 1 packet DAILY DORI Administration Pyridostigmine [place] 60 mg 05/21/23 18:00 06/05/23 08:03 Pyridostigmine [place] 60 Mg Tablet PO 05/20/24 17:59 60 mg QID DORI Administration Saccharomyces Boulardii 250 mg 05/30/23 21:00 06/05/23 08:02 Saccharomyces Boulardii 250 Mg Capsule PO 05/29/24 20:59 250 mg BID DORI Administration Sennosides 2 tab 05/22/23 12:00 Sennosides 8.6 Mg Tablet PO 05/21/24 11:59 DAILY@12 PRN If no BM in 2 days Triamterene/Hydrochlorothiazide 1 tab 05/22/23 09:00 06/05/23 08:02 Triamterene/Hctz 37.5-25mg 1 Tab Tablet PO 05/21/24 08:59 1 tab DAILY DORI Administration Assessment/Plan Assessment/Plan (1) Atrial fibrillation: Code(s): I48.91 - Unspecified atrial fibrillation Status: Acute (2) Morbid obesity with BMI of 50.0-59.9, adult: Code(s): E66.01 - Morbid (severe) obesity due to excess calories; Z68.43 - Body mass index [BMI] 50.0-59.9, adult Status: Acute (3) Impaired mobility and activities of daily living: Code(s): Z74.09 - Other reduced mobility; Z78.9 - Other specified health status Status: Acute (4) Myasthenia gravis: Code(s): G70.00 - Myasthenia gravis without (acute) exacerbation Status: Acute (5) Myasthenia gravis in crisis: Code(s): G70.01 - Myasthenia gravis with (acute) exacerbation Status: Acute (6) Pulmonary emboli: Code(s): I26.99 - Other pulmonary embolism without acute cor pulmonale Status: Acute (7) Hypertension: Code(s): I10 - Essential (primary) hypertension Status: Acute (8) Hyperlipidemia: Code(s): E78.5 - Hyperlipidemia, unspecified Status: Acute (9) Oropharyngeal dysphagia: Code(s): R13.12 - Dysphagia, oropharyngeal phase Status: Acute Plan 77-year-old male presenting to acute rehab with functional impairments secondary to myasthenic crisis. Initially admitted to [facility] later transferred to [facility] for neurology services. Had to be intubated for airway protection. Successfully extubated on 05/15 and has been tolerating well. * Improved. Ambulatory about 125'. * FI tomorrow with for d/c planning. Patient education Pressure ulcer prophylaxis; encourage mobilization, frequent postural changes, pressure-relief techniques DVT prophylaxis: Continue Eliquis. Encourage deep breathing exercise incentive spirometry. Monitor bladder. Toileting schedule. Continue current bladder management, with scans as needed and CIC if needed. Start bowel care program every day to obtain continence, prevent ileus. Maintain fall precautions Gait and balance retraining Functional training and self-care and home management, including activities of daily living and instrumental activities of daily living Provision of the necessary gait aids and functional adaptive equipment to enhance the patient's a functional holiness Ensure adequate nutrition and hydration Sleep: No concerns. Pain: Continue current regimen Discharge planning: Hopefully home with his end of week/early next week. Plan: I completed a substantive portion of this encounter, the medical decision making portion of this note in its entirety, including Allied health note review, nursing note review, behavioral health consultant note review, discussion with nursing and case management, and more than 50% of my time was spent on counseling and coordination of care, time spent 25 minutes Patient was personally seen by me, Dr. Grover, on the day of encounter, reviewed the history and the relevant portions of the chart, including current orders, allied health and behavioral health consultant notes, labs/imaging and performed garcia elements of exam and I formulated the plan of care and facilitated the medical decision making. Documented By: Silvestre Grover MD 06/05/23 1316 Signed By: <Electronically signed by Silvestre Grover MD> 06/06/23 1130 [facility] Work Phone: [phone]) 500-388910-16-2023 Progress note Author Silvestre Grover [facility] June 05, 2023 11:41am Note Date/Time June 05, 2023 1 1:41am [facility] [address] [place] [address] Physiatry(Rehab) Progress Note Signed Patient: Taurus Garcia MR#: [id number] : 1945 Acct:[id number] Age/Sex: 77 / M Adm Date: 3 Loc: Room: 6D3340-5 Type: ADM IN Attending Dr: Silvestre Grover MD Copies to: ~ Date of Service: 06/02/2023 Subjective Subjective Narrative: Mr. Garcia is a 77 year old male with past medical history of myasthenia gravis,hypertension, A-fib anticoagulated with Eliquis, PE, CKD, obstructive sleep apnea on BiPAP, who presents to acute inpatient rehab with functional impairments due to MG crisis. Patient presented to [facility] on 05/11/2023 with complaints of worseninggeneralized weakness over the course of several days. He was found to be mildlyhypoxic. Also complaining of urinary symptoms. Initially admitted to [facility] for observation however developed worsening respiratory status with increased secretions and inability to protect own airway and was subsequently intubated and transferred to [facility] for neurology services. Patient received a 5-day course of IVIG per neurology recommendations. Home steroid dose was also escalated; pyridostigmine temporarily placed on hold. Pulmonology was following for vent management. Patient did develop a fever during hospitalization. Blood cultures x2 and sputum culture were negative. Successfully extubated on 05/15/2023. Had a few episodes of atrial fibrillation with RVR requiring amiodarone infusion. Will demonstrated EF of 60 to 65%, mildLVH and trace tricuspid regurgitation. Developed transient bradycardia which have resolved. Cardiology was consulted to assist with A-fib/RVR management. Recommended continuing amiodarone for the next 6 weeks or until resolution of myasthenic crisis. On rehab admission patient is alert, oriented, answering questions appropriately. Voices no specific complaints. Generalized weakness seems to be improving although still has difficult time moving lower extremities. No other neurologic or cardiopulmonary complaints. Respiratory status is back at baseline. Per patient report, prior to most recent admission he was fully independent and ambulatory without assistive device. He lives with who will be able to assist with ADLs if needed. Interval History: Curt is progressing towards goals. Swelling is improved. Ambulatory in the hallways. Review of Systems Review of Systems All other systems reviewed & are negative unless noted below or in HPI Exam Physical Exam Vital Signs: Temp Pulse Resp BP Pulse Ox O2 Del Method O2 Flow Rate 98.2 F 59 L 12 100/55 L 92 L Room Air 2 06/05/23 09:45 06/05/23 09:45 06/05/23 09:45 06/05/23 09:45 06/05/23 09:45 06/05/23 09:46 05/25/23 00:00 Narrative: General: Awake, alert, oriented x3 HENT: Normal to inspection, normocephalic, atraumatic Eyes: PERRL, normal conjunctiva and sclera Neck: Normal ROM, normal visual inspection. Trachea midline. Cardio: Irregular heart rate then rhythm Respiratory: Clear to auscultation bilaterally. Normal respiratory effort. No respiratory distress. GI: Abdomen obese, soft, nontender, nondistended, active bowel sounds x4 quadrants Neuro: CN II-XII intact. Strength 5/5, equal bilaterally Extremities: No edema, erythema, cyanosis. Upper extremity strength 4+/5, lowerextremity strength 3/5 Psych: Mood and affect appropriate. Normal speech. Objective Labs 05/30/23 05:16 05/30/23 05:16 Medications and Allergies Allergies and Active Meds: Allergies No Known Allergies Allergy (Verified 12/27/17 16:51) Active Medications Generic Name Dose Route Start Last Admin Trade Name Jana PRN Reason Stop Dose Admin Acetaminophen 500 mg 05/21/23 14:25 Acetaminophen 500 Mg Tablet PO 05/20/24 14:24 Q4H PRN Pain Al Hydrox/Mg Hydrox/Simethicone 30 ml 05/21/23 14:25 Mag Hydrox/Al Hydrox/Simeth 30 Ml Udc PO 05/20/24 14:24 Q4H PRN Indigestion Amiodarone HCl 200 mg 05/22/23 09:00 06/05/23 08:01 Amiodarone 200 Mg Tablet PO 05/21/24 08:59 200 mg QAM DORI Administration Apixaban 5 mg 05/21/23 17:30 06/05/23 05:49 Apixaban 5 Mg Tablet PO 05/20/24 17:29 5 mg Q12H DORI Administration Atorvastatin Calcium 20 mg 05/21/23 22:00 06/04/23 21:02 Atorvastatin 20 Mg Tablet PO 05/20/24 21:59 20 mg HS DORI Administration Bisacodyl 10 mg 05/21/23 14:25 Bisacodyl 10 Mg Supp.Rect DE 05/20/24 14:24 DAILY PRN Constipation Docusate Sodium 100 mg 05/21/23 14:25 Docusate 100 Mg Capsule PO 05/20/24 14:24 BID PRN Constipation Docusate Sodium 283 mg 05/21/23 14:25 Docusate Enema 283 Mg/5 Ml Enema DE 05/20/24 14:24 DAILY PRN Constipation Fish Oil 1,000 mg 05/21/23 21:00 06/05/23 08:04 [place]-3/Fish Oil 1,000 Mg Capsule PO 05/20/24 20:59 1,000 mg BID DORI Administration Furosemide 20 mg 05/22/23 09:00 06/05/23 08:01 Furosemide 20 Mg Tablet PO 05/21/24 08:59 20 mg DAILY DORI Administration Hydralazine HCl 50 mg 05/21/23 21:00 06/05/23 08:02 Hydralazine 50 Mg Tablet PO 05/20/24 20:59 50 mg BID DORI Administration Lactulose 30 gm 05/21/23 14:25 Lactulose 20 Gm/30 Ml Udc PO 05/20/24 14:24 DAILY PRN Constipation Lisinopril 20 mg 05/22/23 09:00 06/05/23 08:01 Lisinopril 20 Mg Tablet PO 05/21/24 08:59 20 mg DAILY DORI Administration Loperamide HCl 2 mg 05/21/23 21:10 05/25/23 09:55 Loperamide Liquid 2 Mg/15 Ml Udc PO 05/20/24 21:09 2 mg Q2H PRN Administration Loose Stool Loratadine 10 mg 05/22/23 09:00 06/05/23 11:18 Loratadine 10 Mg Tablet PO 05/21/24 08:59 10 mg DAILY DORI Administration Nebivolol 10 mg 05/22/23 09:00 06/05/23 08:02 Nebivolol 5 Mg Tablet PO 05/21/24 08:59 10 mg DAILY DORI Administration Nystatin 1 applic 05/22/23 09:00 06/05/23 08:04 Nystatin 100,000 Unit/Gram Powder 15 Gm Bottle TOPICAL 05/21/24 08:59 1 applic TID DORI Administration Potassium Chloride 10 meq 05/22/23 09:00 06/05/23 08:01 Potassium Chloride Liquid 20 Meq/15 Ml Udc PO 05/21/24 08:59 10 meq DAILY DORI Administration Prednisone 10 mg 05/22/23 09:00 06/05/23 08:02 Prednisone 10 Mg Tablet PO 05/21/24 08:59 10 mg DAILY DORI Administration Psyllium Hydrophilic Mucilloid 1 packet 06/01/23 09:00 06/05/23 08:00 Psyllium Husk 3.4 Gm Packet PO 05/31/24 08:59 1 packet DAILY DORI Administration Pyridostigmine [place] 60 mg 05/21/23 18:00 06/05/23 08:03 Pyridostigmine [place] 60 Mg Tablet PO 05/20/24 17:59 60 mg QID DORI Administration Saccharomyces Boulardii 250 mg 05/30/23 21:00 06/05/23 08:02 Saccharomyces Boulardii 250 Mg Capsule PO 05/29/24 20:59 250 mg BID DORI Administration Sennosides 2 tab 05/22/23 12:00 Sennosides 8.6 Mg Tablet PO 05/21/24 11:59 DAILY@12 PRN If no BM in 2 days Triamterene/Hydrochlorothiazide 1 tab 05/22/23 09:00 06/05/23 08:02 Triamterene/Hctz 37.5-25mg 1 Tab Tablet PO 05/21/24 08:59 1 tab DAILY DORI Administration Assessment/Plan Assessment/Plan (1) Atrial fibrillation: Code(s): I48.91 - Unspecified atrial fibrillation Status: Acute (2) Morbid obesity with BMI of 50.0-59.9, adult: Code(s): E66.01 - Morbid (severe) obesity due to excess calories; Z68.43 - Body mass index [BMI] 50.0-59.9, adult Status: Acute (3) Impaired mobility and activities of daily living: Code(s): Z74.09 - Other reduced mobility; Z78.9 - Other specified health status Status: Acute (4) Myasthenia gravis: Code(s): G70.00 - Myasthenia gravis without (acute) exacerbation Status: Acute (5) Myasthenia gravis in crisis: Code(s): G70.01 - Myasthenia gravis with (acute) exacerbation Status: Acute (6) Pulmonary emboli: Code(s): I26.99 - Other pulmonary embolism without acute cor pulmonale Status: Acute (7) Hypertension: Code(s): I10 - Essential (primary) hypertension Status: Acute (8) Hyperlipidemia: Code(s): E78.5 - Hyperlipidemia, unspecified Status: Acute (9) Oropharyngeal dysphagia: Code(s): R13.12 - Dysphagia, oropharyngeal phase Status: Acute Plan 77-year-old male presenting to acute rehab with functional impairments secondary to myasthenic crisis. Initially admitted to [facility] later transferred to [facility] for neurology services. Had to be intubated for airway protection. Successfully extubated on 05/15 and has been tolerating well. * Improved. Ambulatory about 100 feet * Is extremely anxious about removal, he is afraid he will be incontinent and this would lead to issues with skin breakdown Patient education Pressure ulcer prophylaxis; encourage mobilization, frequent postural changes, pressure-relief techniques DVT prophylaxis: Continue Eliquis. Encourage deep breathing exercise incentive spirometry. Monitor bladder. Toileting schedule. Continue current bladder management, with scans as needed and CIC if needed. Start bowel care program every day to obtain continence, prevent ileus. Maintain fall precautions Gait and balance retraining Functional training and self-care and home management, including activities of daily living and instrumental activities of daily living Provision of the necessary gait aids and functional adaptive equipment to enhance the patient's a functional holiness Ensure adequate nutrition and hydration Sleep: No concerns. Pain: Continue current regimen Discharge planning: Hopefully home with his end of next week. Plan: I completed a substantive portion of this encounter, the medical decision making portion of this note in its entirety, including Allied health note review, nursing note review, behavioral health consultant note review, discussion with nursing and case management, and more than 50% of my time was spent on counseling and coordination of care, time spent 25 minutes Patient was personally seen by me, Dr. Grover, on the day of encounter, reviewed the history and the relevant portions of the chart, including current orders, allied health and behavioral health consultant notes, labs/imaging and performed garcia elements of exam and I formulated the plan of care and facilitated the medical decision making. Documented By: Silvestre Grover MD 06/05/23 1139 Signed By: <Electronically signed by Silvestre Grover MD> 06/05/23 1141 [facility] Work Phone: 1(700) 821-583410-14-2023 Progress note Author Fidel Bennett [facility] June 03, 2023 3:02pm Note Date/Time June 03, 2023 3 :02pm [facility] [address] [place] [address] Physiatry(Rehab) Progress Note Signed Patient: Taurus Garcia MR#: [id number] : 1945 Acct:[id number] Age/Sex: 77 / M Adm Date: 3 Loc: Room: 7J5262-8 Type: ADM IN Attending Dr: Silvestre Grover MD Copies to: ~ Date of Service: 06/03/2023 Subjective Subjective Narrative: Mr. Garcia is a 77 year old male with past medical history of myasthenia gravis,hypertension, A-fib anticoagulated with Eliquis, PE, CKD, obstructive sleep apnea on BiPAP, who presents to acute inpatient rehab with functional impairments due to MG crisis. Patient presented to [facility] on 05/11/2023 with complaints of worseninggeneralized weakness over the course of several days. He was found to be mildlyhypoxic. Also complaining of urinary symptoms. Initially admitted to [facility] for observation however developed worsening respiratory status with increased secretions and inability to protect own airway and was subsequently intubated and transferred to [facility] for neurology services. Patient received a 5-day course of IVIG per neurology recommendations. Home steroid dose was also escalated; pyridostigmine temporarily placed on hold. Pulmonology was following for vent management. Patient did develop a fever during hospitalization. Blood cultures x2 and sputum culture were negative. Successfully extubated on 05/15/2023. Had a few episodes of atrial fibrillation with RVR requiring amiodarone infusion. Will demonstrated EF of 60 to 65%, mildLVH and trace tricuspid regurgitation. Developed transient bradycardia which have resolved. Cardiology was consulted to assist with A-fib/RVR management. Recommended continuing amiodarone for the next 6 weeks or until resolution of myasthenic crisis. On rehab admission patient is alert, oriented, answering questions appropriately. Voices no specific complaints. Generalized weakness seems to be improving although still has difficult time moving lower extremities. No other neurologic or cardiopulmonary complaints. Respiratory status is back at baseline. Per patient report, prior to most recent admission he was fully independent and ambulatory without assistive device. He lives with who will be able to assist with ADLs if needed. Interval History: This patient was seen and evaluated in the dining room eating breakfast. Appears in no distress today. He has no acute concerns. Denies chest pain, shortness of breath, fever, chills. Continues to tolerate therapy well and makegood functional gains. Review of Systems Review of Systems All other systems reviewed & are negative unless noted below or in HPI Exam Physical Exam Vital Signs: Temp Pulse Resp BP Pulse Ox O2 Del Method O2 Flow Rate 98.4 F 64 20 104/72 96 Room Air 2 06/03/23 09:41 06/03/23 09:41 06/03/23 09:41 06/03/23 09:41 06/03/23 09:41 06/03/23 09:41 05/25/23 00:00 Narrative: General: Awake, alert, oriented x3 HENT: Normal to inspection, normocephalic, atraumatic Eyes: PERRL, normal conjunctiva and sclera Neck: Normal ROM, normal visual inspection. Trachea midline. Cardio: Irregular heart rate then rhythm Respiratory: Clear to auscultation bilaterally. Normal respiratory effort. No respiratory distress. GI: Abdomen obese, soft, nontender, nondistended, active bowel sounds x4 quadrants Neuro: CN II-XII intact. Strength 5/5, equal bilaterally Extremities: No edema, erythema, cyanosis. Upper extremity strength 4+/5, lowerextremity strength 1+/5. Psych: Mood and affect appropriate. Normal speech. Objective Labs 05/30/23 05:16 05/30/23 05:16 Medications and Allergies Allergies and Active Meds: Allergies No Known Allergies Allergy (Verified 12/27/17 16:51) Active Medications Generic Name Dose Route Start Last Admin Trade Name Freq PRN Reason Stop Dose Admin Acetaminophen 500 mg 05/21/23 14:25 Acetaminophen 500 Mg Tablet PO 05/20/24 14:24 Q4H PRN Pain Al Hydrox/Mg Hydrox/Simethicone 30 ml 05/21/23 14:25 Mag Hydrox/Al Hydrox/Simeth 30 Ml Udc PO 05/20/24 14:24 Q4H PRN Indigestion Amiodarone HCl 200 mg 05/22/23 09:00 06/03/23 09:45 Amiodarone 200 Mg Tablet PO 05/21/24 08:59 200 mg QAM DORI Administration Apixaban 5 mg 05/21/23 17:30 06/03/23 05:23 Apixaban 5 Mg Tablet PO 05/20/24 17:29 5 mg Q12H DORI Administration Atorvastatin Calcium 20 mg 05/21/23 22:00 06/02/23 20:54 Atorvastatin 20 Mg Tablet PO 05/20/24 21:59 20 mg HS DORI Administration Bisacodyl 10 mg 05/21/23 14:25 Bisacodyl 10 Mg Supp.Rect DE 05/20/24 14:24 DAILY PRN Constipation Docusate Sodium 100 mg 05/21/23 14:25 Docusate 100 Mg Capsule PO 05/20/24 14:24 BID PRN Constipation Docusate Sodium 283 mg 05/21/23 14:25 Docusate Enema 283 Mg/5 Ml Enema DE 05/20/24 14:24 DAILY PRN Constipation Fish Oil 1,000 mg 05/21/23 21:00 06/03/23 09:45 [place]-3/Fish Oil 1,000 Mg Capsule PO 05/20/24 20:59 1,000 mg BID DORI Administration Furosemide 20 mg 05/22/23 09:00 06/03/23 09:46 Furosemide 20 Mg Tablet PO 05/21/24 08:59 20 mg DAILY DORI Administration Hydralazine HCl 50 mg 05/21/23 21:00 06/03/23 09:46 Hydralazine 50 Mg Tablet PO 05/20/24 20:59 50 mg BID DORI Administration Lactulose 30 gm 05/21/23 14:25 Lactulose 20 Gm/30 Ml Udc PO 05/20/24 14:24 DAILY PRN Constipation Lisinopril 20 mg 05/22/23 09:00 06/03/23 09:46 Lisinopril 20 Mg Tablet PO 05/21/24 08:59 20 mg DAILY DORI Administration Loperamide HCl 2 mg 05/21/23 21:10 05/25/23 09:55 Loperamide Liquid 2 Mg/15 Ml Udc PO 05/20/24 21:09 2 mg Q2H PRN Administration Loose Stool Loratadine 10 mg 05/22/23 09:00 06/03/23 09:46 Loratadine 10 Mg Tablet PO 05/21/24 08:59 10 mg DAILY DORI Administration Nebivolol 10 mg 05/22/23 09:00 06/03/23 09:46 Nebivolol 5 Mg Tablet PO 05/21/24 08:59 10 mg DAILY DORI Administration Nystatin 1 applic 05/22/23 09:00 06/03/23 14:48 Nystatin 100,000 Unit/Gram Powder 15 Gm Bottle TOPICAL 05/21/24 08:59 1 applic TID DORI Administration Potassium Chloride 10 meq 05/22/23 09:00 06/03/23 09:48 Potassium Chloride Liquid 20 Meq/15 Ml Udc PO 05/21/24 08:59 10 meq DAILY DORI Administration Prednisone 10 mg 05/22/23 09:00 06/03/23 09:46 Prednisone 10 Mg Tablet PO 05/21/24 08:59 10 mg DAILY DORI Administration Psyllium Hydrophilic Mucilloid 1 packet 06/01/23 09:00 06/03/23 09:47 Psyllium Husk 3.4 Gm Packet PO 05/31/24 08:59 1 packet DAILY DORI Administration Pyridostigmine [place] 60 mg 05/21/23 18:00 06/03/23 14:48 Pyridostigmine [place] 60 Mg Tablet PO 05/20/24 17:59 60 mg QID DORI Administration Saccharomyces Boulardii 250 mg 05/30/23 21:00 06/03/23 09:46 Saccharomyces Boulardii 250 Mg Capsule PO 05/29/24 20:59 250 mg BID DORI Administration Sennosides 2 tab 05/22/23 12:00 Sennosides 8.6 Mg Tablet PO 05/21/24 11:59 DAILY@12 PRN If no BM in 2 days Triamterene/Hydrochlorothiazide 1 tab 05/22/23 09:00 06/03/23 09:47 Triamterene/Hctz 37.5-25mg 1 Tab Tablet PO 05/21/24 08:59 1 tab DAILY DORI Administration Assessment/Plan Assessment/Plan (1) Atrial fibrillation: Code(s): I48.91 - Unspecified atrial fibrillation Status: Acute (2) Morbid obesity with BMI of 50.0-59.9, adult: Code(s): E66.01 - Morbid (severe) obesity due to excess calories; Z68.43 - Body mass index [BMI] 50.0-59.9, adult Status: Acute (3) Impaired mobility and activities of daily living: Code(s): Z74.09 - Other reduced mobility; Z78.9 - Other specified health status Status: Acute (4) Myasthenia gravis: Code(s): G70.00 - Myasthenia gravis without (acute) exacerbation Status: Acute (5) Myasthenia gravis in crisis: Code(s): G70.01 - Myasthenia gravis with (acute) exacerbation Status: Acute (6) Pulmonary emboli: Code(s): I26.99 - Other pulmonary embolism without acute cor pulmonale Status: Acute (7) Hypertension: Code(s): I10 - Essential (primary) hypertension Status: Acute (8) Hyperlipidemia: Code(s): E78.5 - Hyperlipidemia, unspecified Status: Acute (9) Oropharyngeal dysphagia: Code(s): R13.12 - Dysphagia, oropharyngeal phase Status: Acute Plan 77-year-old male presenting to acute rehab with functional impairments secondary to myasthenic crisis. Initially admitted to [facility] later transferred to [facility] for neurology services. Had to be intubated for airway protection. Successfully extubated on 05/15 and has been tolerating well. * BLE edema persists. His weight is actually down 10 kg since admission. We will attempt to obtain a recliner to aid in BLE elevation. Continue BLESSING hose for compression. * Feels improved and is doing much more in therapy. Ambulatory with a walker and wheelchair for follow-up. Minimal assistance for bed mobility and transfers. Patient education Pressure ulcer prophylaxis; encourage mobilization, frequent postural changes, pressure-relief techniques DVT prophylaxis: Continue Eliquis. Encourage deep breathing exercise incentive spirometry. Monitor bladder. Toileting schedule. Continue current bladder management, with scans as needed and CIC if needed. Start bowel care program every day to obtain continence, prevent ileus. Maintain fall precautions Gait and balance retraining Functional training and self-care and home management, including activities of daily living and instrumental activities of daily living Provision of the necessary gait aids and functional adaptive equipment to enhance the patient's a functional holiness Ensure adequate nutrition and hydration Sleep: No concerns. Pain: Continue current regimen Discharge planning: Hopefully home with his end of next week. Plan: I completed a substantive portion of this encounter, the medical decision making portion of this note in its entirety, including Allied health note review, nursing note review, behavioral health consultant note review, discussion with nursing and case management, and more than 50% of my time was spent on counseling and coordination of care, time spent 25 minutes Patient was personally seen by me, Dr. Bennett, on the day of encounter, reviewed the history and the relevant portions of the chart, including current orders, allied health and behavioral health consultant notes, labs/imaging and performed garcia elements of exam and I formulated the plan of care and facilitated the medical decision making. Documented By: Fidel Bennett MD [id number] Signed By: <Electronically signed by Fidel Bennett MD> 06/03/23 1503 [facility] Work Phone: 1(732) 502-615610-13-2023 Progress note Author Silvestre Grover [facility] June 02, 2023 10:48am Note Date/Time June 01, 2023 1 :12pm [facility] [address] [place] [address] Physiatry(Rehab) Progress Note Signed Patient: Taurus Garcia MR#: [id number] : 1945 Acct:[id number] Age/Sex: 77 / M Adm Date: 3 Loc: Room: [address] [place] [address] Type: ADM IN Attending Dr: Silvestre Grover MD Copies to: ~ <Antonia rGier APRN - Last Filed: 06/01/23 13:12> Date of Service: 06/01/2023 Subjective <Antonia Grier APRN - Last Filed: 06/01/23 13:12> Subjective Narrative: Mr. Garcia is a 77 year old male with past medical history of myasthenia gravis,hypertension, A-fib anticoagulated with Eliquis, PE, CKD, obstructive sleep apnea on BiPAP, who presents to acute inpatient rehab with functional impairments due to MG crisis. Patient presented to [facility] on 05/11/2023 with complaints of worseninggeneralized weakness over the course of several days. He was found to be mildlyhypoxic. Also complaining of urinary symptoms. Initially admitted to [facility] for observation however developed worsening respiratory status with increased secretions and inability to protect own airway and was subsequently intubated and transferred to [facility] for neurology services. Patient received a 5-day course of IVIG per neurology recommendations. Home steroid dose was also escalated; pyridostigmine temporarily placed on hold. Pulmonology was following for vent management. Patient did develop a fever during hospitalization. Blood cultures x2 and sputum culture were negative. Successfully extubated on 05/15/2023. Had a few episodes of atrial fibrillation with RVR requiring amiodarone infusion. Will demonstrated EF of 60 to 65%, mildLVH and trace tricuspid regurgitation. Developed transient bradycardia which have resolved. Cardiology was consulted to assist with A-fib/RVR management. Recommended continuing amiodarone for the next 6 weeks or until resolution of myasthenic crisis. On rehab admission patient is alert, oriented, answering questions appropriately. Voices no specific complaints. Generalized weakness seems to beimproving although still has difficult time moving lower extremities. No other neurologic or cardiopulmonary complaints. Respiratory status is back at baseline. Per patient report, prior to most recent admission he was fully independent and ambulatory without assistive device. He lives with who will be able to assist with ADLs if needed. Interval History: Unit evaluated in his room while sitting in the wheelchair. He is alert, pleasant, oriented x3. Reports no pain or or other acute complaints. He is sleeping well. Appetite is appropriate. No GI or concerns. He is feeling stronger and becoming more active in therapy. This morning he [id number]+90 feet with a rolling walker with wheelchair follow for safety. Requiresmin assist for transfers. Bilateral lower extremities remain notably edematous. We discussed continued compression and elevation. Weight trends reviewed, he is down 10 kg since admission. Inquired with patient's nurse about obtaining a recliner for the patient to aid in leg elevation when in seated position. Review of Systems <Antonia Grier APRN - Last Filed: 06/01/23 13:12> Review of Systems All other systems reviewed & are negative unless noted below or in HPI Exam <Antonia Grier APRN - Last Filed: 06/01/23 13:12> Physical Exam Vital Signs: Temp Pulse Resp BP Pulse Ox O2 Del Method O2 Flow Rate 98.5 F 62 20 103/66 93 L Room Air 2 06/01/23 06:54 06/01/23 06:54 06/01/23 06:54 06/01/23 06:54 06/01/23 06:54 06/01/23 10:25 05/25/23 00:00 Narrative: General: Awake, alert, oriented x3 HENT: Normal to inspection, normocephalic, atraumatic Eyes: PERRL, normal conjunctiva and sclera Neck: Normal ROM, normal visual inspection. Trachea midline. Cardio: Irregular heart rate then rhythm Respiratory: Clear to auscultation bilaterally. Normal respiratory effort. No respiratory distress. GI: Abdomen obese, soft, nontender, nondistended, active bowel sounds x4 quadrants Neuro: CN II-XII intact. Strength 5/5, equal bilaterally Extremities: No edema, erythema, cyanosis. Upper extremity strength 4+/5, lowerextremity strength 1+/5. Psych: Mood and affect appropriate. Normal speech. Objective <Antonia Grier APRN - Last Filed: 06/01/23 13:12> Labs 05/30/23 05:16 05/30/23 05:16 Medications and Allergies Allergies and Active Meds: Allergies No Known Allergies Allergy (Verified 12/27/17 16:51) Active Medications Generic Name Dose Route Start Last Admin Trade Name Lenoq PRN Reason Stop Dose Admin Acetaminophen 500 mg 05/21/23 14:25 Acetaminophen 500 Mg Tablet PO 05/20/24 14:24 Q4H PRN Pain Al Hydrox/Mg Hydrox/Simethicone 30 ml 05/21/23 14:25 Mag Hydrox/Al Hydrox/Simeth 30 Ml Udc PO 05/20/24 14:24 Q4H PRN Indigestion Amiodarone HCl 200 mg 05/22/23 09:00 06/01/23 10:05 Amiodarone 200 Mg Tablet PO 05/21/24 08:59 200 mg QAM DORI Administration Apixaban 5 mg 05/21/23 17:30 06/01/23 06:56 Apixaban 5 Mg Tablet PO 05/20/24 17:29 5 mg Q12H DORI Administration Atorvastatin Calcium 20 mg 05/21/23 22:00 05/31/23 21:13 Atorvastatin 20 Mg Tablet PO 05/20/24 21:59 20 mg HS DORI Administration Bisacodyl 10 mg 05/21/23 14:25 Bisacodyl 10 Mg Supp.Rect DE 05/20/24 14:24 DAILY PRN Constipation Docusate Sodium 100 mg 05/21/23 14:25 Docusate 100 Mg Capsule PO 05/20/24 14:24 BID PRN Constipation Docusate Sodium 283 mg 05/21/23 14:25 Docusate Enema 283 Mg/5 Ml Enema DE 05/20/24 14:24 DAILY PRN Constipation Fish Oil 1,000 mg 05/21/23 21:00 06/01/23 10:05 [place]-3/Fish Oil 1,000 Mg Capsule PO 05/20/24 20:59 1,000 mg BID DORI Administration Furosemide 20 mg 05/22/23 09:00 06/01/23 10:05 Furosemide 20 Mg Tablet PO 05/21/24 08:59 20 mg DAILY DORI Administration Hydralazine HCl 50 mg 05/21/23 21:00 06/01/23 10:05 Hydralazine 50 Mg Tablet PO 05/20/24 20:59 50 mg BID DORI Administration Lactulose 30 gm 05/21/23 14:25 Lactulose 20 Gm/30 Ml Udc PO 05/20/24 14:24 DAILY PRN Constipation Lisinopril 20 mg 05/22/23 09:00 06/01/23 10:05 Lisinopril 20 Mg Tablet PO 05/21/24 08:59 20 mg DAILY DORI Administration Loperamide HCl 2 mg 05/21/23 21:10 05/25/23 09:55 Loperamide Liquid 2 Mg/15 Ml Udc PO 05/20/24 21:09 2 mg Q2H PRN Administration Loose Stool Loratadine 10 mg 05/22/23 09:00 06/01/23 10:05 Loratadine 10 Mg Tablet PO 05/21/24 08:59 10 mg DAILY DORI Administration Nebivolol 10 mg 05/22/23 09:00 06/01/23 10:05 Nebivolol 5 Mg Tablet PO 05/21/24 08:59 10 mg DAILY DORI Administration Nystatin 1 applic 05/22/23 09:00 06/01/23 10:05 Nystatin 100,000 Unit/Gram Powder 15 Gm Bottle TOPICAL 05/21/24 08:59 1 applic TID DORI Administration Potassium Chloride 10 meq 05/22/23 09:00 06/01/23 10:04 Potassium Chloride Liquid 20 Meq/15 Ml Udc PO 05/21/24 08:59 10 meq DAILY DORI Administration Prednisone 10 mg 05/22/23 09:00 06/01/23 10:05 Prednisone 10 Mg Tablet PO 05/21/24 08:59 10 mg DAILY DORI Administration Psyllium Hydrophilic Mucilloid 1 packet 06/01/23 09:00 06/01/23 10:05 Psyllium Husk 3.4 Gm Packet PO 05/31/24 08:59 1 packet DAILY DORI Administration Pyridostigmine [place] 60 mg 05/21/23 18:00 06/01/23 10:05 Pyridostigmine [place] 60 Mg Tablet PO 05/20/24 17:59 60 mg QID DORI Administration Saccharomyces Boulardii 250 mg 05/30/23 21:00 06/01/23 10:05 Saccharomyces Boulardii 250 Mg Capsule PO 05/29/24 20:59 250 mg BID DORI Administration Sennosides 2 tab 05/22/23 12:00 Sennosides 8.6 Mg Tablet PO 05/21/24 11:59 DAILY@12 PRN If no BM in 2 days Triamterene/Hydrochlorothiazide 1 tab 05/22/23 09:00 06/01/23 10:05 Triamterene/Hctz 37.5-25mg 1 Tab Tablet PO 05/21/24 08:59 1 tab DAILY DORI Administration Assessment/Plan <Antonia Grier, AUTISM MOTOR SPECIALIST - Last Filed: 06/01/23 13:12> Assessment/Plan (1) Atrial fibrillation: Code(s): I48.91 - Unspecified atrial fibrillation Status: Acute (2) Morbid obesity with BMI of 50.0-59.9, adult: Code(s): E66.01 - Morbid (severe) obesity due to excess calories; Z68.43 - Body mass index [BMI] 50.0-59.9, adult Status: Acute (3) Impaired mobility and activities of daily living: Code(s): Z74.09 - Other reduced mobility; Z78.9 - Other specified health status Status: Acute (4) Myasthenia gravis: Code(s): G70.00 - Myasthenia gravis without (acute) exacerbation Status: Acute (5) Myasthenia gravis in crisis: Code(s): G70.01 - Myasthenia gravis with (acute) exacerbation Status: Acute (6) Pulmonary emboli: Code(s): I26.99 - Other pulmonary embolism without acute cor pulmonale Status: Acute (7) Hypertension: Code(s): I10 - Essential (primary) hypertension Status: Acute (8) Hyperlipidemia: Code(s): E78.5 - Hyperlipidemia, unspecified Status: Acute (9) Oropharyngeal dysphagia: Code(s): R13.12 - Dysphagia, oropharyngeal phase Status: Acute Plan 77-year-old male presenting to acute rehab with functional impairments secondary to myasthenic crisis. Initially admitted to [facility] later transferred to [facility] for neurology services. Had to be intubated for airway protection. Successfully extubated on 05/15 and has been tolerating well. * BLE edema persists. His weight is actually down 10 kg since admission. We will attempt to obtain a recliner to aid in BLE elevation. Continue BLESSING hose for compression. * Feels improved and is doing much more in therapy. Ambulatory with a walker and wheelchair for follow-up. Minimal assistance for bed mobility and transfers. Patient education Pressure ulcer prophylaxis; encourage mobilization, frequent postural changes, pressure-relief techniques DVT prophylaxis: Continue Eliquis. Encourage deep breathing exercise incentive spirometry. Monitor bladder. Toileting schedule. Continue current bladder management, with scans as needed and CIC if needed. Start bowel care program every day to obtain continence, prevent ileus. Maintain fall precautions Gait and balance retraining Functional training and self-care and home management, including activities of daily living and instrumental activities of daily living Provision of the necessary gait aids and functional adaptive equipment to enhance the patient's a functional holiness Ensure adequate nutrition and hydration Sleep: No concerns. Pain: Continue current regimen Discharge planning: Hopefully home with his end of next week. I spent greater than 15 minutes for services, including [id number] encounter with the patient, discussion of the case, plan of care, and exam; and [id number] activities, such as reviewing pertinent behavioral health consultant documentation, recent therapy notes, laboratory and radiology studies, and discussion of case with care team including physician, nursing, shelter case manager, and therapists. More than 50 % of time was spent on patient/family counseling or coordination of care. <Silvestre Grover MD - Last Filed: 06/02/23 10:48> Assessment/Plan (1) Atrial fibrillation: (2) Morbid obesity with BMI of 50.0-59.9, adult: (3) Impaired mobility and activities of daily living: (4) Myasthenia gravis: (5) Myasthenia gravis in crisis: (6) Pulmonary emboli: (7) Hypertension: (8) Hyperlipidemia: (9) Oropharyngeal dysphagia: Plan: I reviewed the history and the relevant portions of the chart, including current orders, allied health and behavioral health consultant notes, labs/imaging and plan of care as above. Documented By: Antonia Grier APRN 06/01/23 1 304 Signed By: <Electronically signed by ZACH Grier> 06/01/23 1312 <Electronically signed by Silvestre Grover MD> 06/02/23 4276 [facility] Work Phone: 1(104) 249-671510-13-2023 Progress note Author Meera Javier [facility] June 02, 2023 8:21am Note Date/Time May 31, 2023 2 :26pm [facility] [address] [place] [address] Hospitalist Progress Note Signed Patient: Taurus Garcia MR#: [id number] : 1945 Acct:[id number] Age/Sex: 77 / M Adm Date: 3 Loc: Room: [address] [place] [address] Type: ADM IN Attending Dr: Silvestre Grover MD Copies to: ~ Date of Service: 05/31/2023 Subjective Subjective Narrative: Patient is seen and examined on follow-up. He continues to work with therapy. He offers concern regarding edematous lower extremities. Denies shortness of breath. Vitals reviewed blood pressures controlled 100-1 teens, afebrile no hypoxia. Labs reviewed from May 30 hemoglobin stable at 12.2, electrolytes and renal function normal. Exam Physical Exam Vital Signs: Temp Pulse Resp BP Pulse Ox O2 Del Method O2 Flow Rate 98.2 F 58 L 18 124/57 L 94 L Room Air 2 05/31/23 04:59 05/31/23 04:59 05/31/23 04:59 05/31/23 04:59 05/31/23 04:59 05/31/23 04:59 05/25/23 00:00 Narrative: CONST- alert, in chair with legs down, no distress at rest CARD- RRR no abnormal heart tones PULM- dimin without wheeze or rhonchi, RA ABD- S/NT, NABS, obese EXTREM-1?2 edema BLE, calves nontender Objective Lab Results 05/30/23 05:16 05/30/23 05:16 Meds Allergies and Active Meds Allergies No Known Allergies Allergy (Verified 12/27/17 16:51) Active Meds: Active Medications Generic Name Dose Route Start Last Admin Trade Name Freq PRN Reason Stop Dose Admin Acetaminophen 500 mg 05/21/23 14:25 Acetaminophen 500 Mg Tablet PO 05/20/24 14:24 Q4H PRN Pain Al Hydrox/Mg Hydrox/Simethicone 30 ml 05/21/23 14:25 Mag Hydrox/Al Hydrox/Simeth 30 Ml Udc PO 05/20/24 14:24 Q4H PRN Indigestion Amiodarone HCl 200 mg 05/22/23 09:00 05/31/23 07:49 Amiodarone 200 Mg Tablet PO 05/21/24 08:59 200 mg QAM DORI Administration Apixaban 5 mg 05/21/23 17:30 05/31/23 05:03 Apixaban 5 Mg Tablet PO 05/20/24 17:29 5 mg Q12H DORI Administration Atorvastatin Calcium 20 mg 05/21/23 22:00 05/30/23 20:01 Atorvastatin 20 Mg Tablet PO 05/20/24 21:59 20 mg HS DORI Administration Bisacodyl 10 mg 05/21/23 14:25 Bisacodyl 10 Mg Supp.Rect DE 05/20/24 14:24 DAILY PRN Constipation Docusate Sodium 100 mg 05/21/23 14:25 Docusate 100 Mg Capsule PO 05/20/24 14:24 BID PRN Constipation Docusate Sodium 283 mg 05/21/23 14:25 Docusate Enema 283 Mg/5 Ml Enema DE 05/20/24 14:24 DAILY PRN Constipation Fish Oil 1,000 mg 05/21/23 21:00 05/31/23 07:49 [place]-3/Fish Oil 1,000 Mg Capsule PO 05/20/24 20:59 1,000 mg BID DORI Administration Furosemide 20 mg 05/22/23 09:00 05/31/23 07:49 Furosemide 20 Mg Tablet PO 05/21/24 08:59 20 mg DAILY DORI Administration Hydralazine HCl 50 mg 05/21/23 21:00 05/31/23 07:49 Hydralazine 50 Mg Tablet PO 05/20/24 20:59 50 mg BID DORI Administration Lactulose 30 gm 05/21/23 14:25 Lactulose 20 Gm/30 Ml Udc PO 05/20/24 14:24 DAILY PRN Constipation Lisinopril 20 mg 05/22/23 09:00 05/31/23 07:48 Lisinopril 20 Mg Tablet PO 05/21/24 08:59 20 mg DAILY DORI Administration Loperamide HCl 2 mg 05/21/23 21:10 05/25/23 09:55 Loperamide Liquid 2 Mg/15 Ml Udc PO 05/20/24 21:09 2 mg Q2H PRN Administration Loose Stool Loratadine 10 mg 05/22/23 09:00 05/31/23 07:49 Loratadine 10 Mg Tablet PO 05/21/24 08:59 10 mg DAILY DORI Administration Nebivolol 10 mg 05/22/23 09:00 05/31/23 07:48 Nebivolol 5 Mg Tablet PO 05/21/24 08:59 10 mg DAILY DORI Administration Nystatin 1 applic 05/22/23 09:00 05/31/23 14:16 Nystatin 100,000 Unit/Gram Powder 15 Gm Bottle TOPICAL 05/21/24 08:59 1 applic TID DORI Administration Potassium Chloride 10 meq 05/22/23 09:00 05/31/23 07:49 Potassium Chloride Liquid 20 Meq/15 Ml Udc PO 05/21/24 08:59 10 meq DAILY DORI Administration Prednisone 10 mg 05/22/23 09:00 05/31/23 07:50 Prednisone 10 Mg Tablet PO 05/21/24 08:59 10 mg DAILY DORI Administration Psyllium Hydrophilic Mucilloid 1 packet 06/01/23 09:00 Psyllium Husk 3.4 Gm Packet PO 05/31/24 08:59 DAILY DORI Pyridostigmine [place] 60 mg 05/21/23 18:00 05/31/23 14:13 Pyridostigmine [place] 60 Mg Tablet PO 05/20/24 17:59 60 mg QID DORI Administration Saccharomyces Boulardii 250 mg 05/30/23 21:00 05/31/23 07:49 Saccharomyces Boulardii 250 Mg Capsule PO 05/29/24 20:59 250 mg BID DORI Administration Sennosides 2 tab 05/22/23 12:00 Sennosides 8.6 Mg Tablet PO 05/21/24 11:59 DAILY@12 PRN If no BM in 2 days Triamterene/Hydrochlorothiazide 1 tab 05/22/23 09:00 05/31/23 07:49 Triamterene/Hctz 37.5-25mg 1 Tab Tablet PO 05/21/24 08:59 1 tab DAILY DORI Administration A&P - Hospitalist Assessment/Plan (1) Myasthenia gravis in crisis: Plan Myasthenia gravis crisis ?POC per PMR team for rehabilitative therapy, pain control bowel regimen, DVT PPx ?Pyridostigmine and prednisone Bilateral lower extremity edema -Encourage elevated, continue furosemide, BLESSING hose, trend weights -Venous duplex 05/25 negative for DVT Chronic conditions: 1. Atrial fibrillation/hypertension? amiodarone, lisinopril, hydralazine, furosemide, nebivolol, Maxide 2. Hx pulmonary embolism?apixaban 3. HLD? atorvastatin Documented By: NAZNAIN Benitez 3 1426 Signed By: <Electronically signed by [facility] Meera Javier> 06/02/23 0821 [facility] Work Phone: 1(127) 151-714410-11-2023 Progress note Author Silvestre Grover [facility] May 31, 2023 10:21am Note Date/Time May 31, 2023 1 0:17am [facility] [address] [place] [address] Physiatry(Rehab) Progress Note Signed Patient: Taurus Garcia MR#: [id number] : 1945 Acct:[id number] Age/Sex: 77 / M Adm Date: 3 Loc: Room: [address] [place] [address] Type: ADM IN Attending Dr: Silvestre Grover MD Copies to: ~ Date of Service: 05/31/2023 Subjective Subjective Narrative: Mr. Garcia is a 77 year old male with past medical history of myasthenia gravis,hypertension, A-fib anticoagulated with Eliquis, PE, CKD, obstructive sleep apnea on BiPAP, who presents to acute inpatient rehab with functional impairments due to MG crisis. Patient presented to [facility] on 05/11/2023 with complaints of worseninggeneralized weakness over the course of several days. He was found to be mildlyhypoxic. Also complaining of urinary symptoms. Initially admitted to [facility] for observation however developed worsening respiratory status with increased secretions and inability to protect own airway and was subsequently intubated and transferred to [facility] for neurology services. Patient received a 5-day course of IVIG per neurology recommendations. Home steroid dose was also escalated; pyridostigmine temporarily placed on hold. Pulmonology was following for vent management. Patient did develop a fever during hospitalization. Blood cultures x2 and sputum culture were negative. Successfully extubated on 05/15/2023. Had a few episodes of atrial fibrillation with RVR requiring amiodarone infusion. Will demonstrated EF of 60 to 65%, mildLVH and trace tricuspid regurgitation. Developed transient bradycardia which have resolved. Cardiology was consulted to assist with A-fib/RVR management. Recommended continuing amiodarone for the next 6 weeks or until resolution of myasthenic crisis. On rehab admission patient is alert, oriented, answering questions appropriately. Voices no specific complaints. Generalized weakness seems to be improving although still has difficult time moving lower extremities. No other neurologic or cardiopulmonary complaints. Respiratory status is back at baseline. Per patient report, prior to most recent admission he was fully independent and ambulatory without assistive device. He lives with who will be able to assist with ADLs if needed. Interval History: Speech therapy has upgraded diet. Walked 35 feet with a walker and wheelchair follow. Still limited by fatigue. C. difficile has resulted negative. Review of Systems Review of Systems All other systems reviewed & are negative unless noted below or in HPI Exam Physical Exam Vital Signs: Temp Pulse Resp BP Pulse Ox O2 Del Method O2 Flow Rate 98.2 F 58 L 18 124/57 L 94 L Room Air 2 05/31/23 04:59 05/31/23 04:59 05/31/23 04:59 05/31/23 04:59 05/31/23 04:59 05/31/23 04:59 05/25/23 00:00 Narrative: General: Awake, alert, oriented x3 HENT: Normal to inspection, normocephalic, atraumatic Eyes: PERRL, normal conjunctiva and sclera Neck: Normal ROM, normal visual inspection. Trachea midline. Cardio: Irregular heart rate then rhythm Respiratory: Clear to auscultation bilaterally. Normal respiratory effort. No respiratory distress. GI: Abdomen obese, soft, nontender, nondistended, active bowel sounds x4 quadrants Neuro: CN II-XII intact. Strength 5/5, equal bilaterally Extremities: No edema, erythema, cyanosis. Upper extremity strength 4+/5, lowerextremity strength 3/5 Psych: Mood and affect appropriate. Normal speech. Objective Labs 05/30/23 05:16 05/30/23 05:16 Labs: Laboratory Results - last 24 hr 05/30/23 18:50 C. difficile Tox B Gene Negative Medications and Allergies Allergies and Active Meds: Allergies No Known Allergies Allergy (Verified 12/27/17 16:51) Active Medications Generic Name Dose Route Start Last Admin Trade Name Lenoq PRN Reason Stop Dose Admin Acetaminophen 500 mg 05/21/23 14:25 Acetaminophen 500 Mg Tablet PO 05/20/24 14:24 Q4H PRN Pain Al Hydrox/Mg Hydrox/Simethicone 30 ml 05/21/23 14:25 Mag Hydrox/Al Hydrox/Simeth 30 Ml Udc PO 05/20/24 14:24 Q4H PRN Indigestion Amiodarone HCl 200 mg 05/22/23 09:00 05/31/23 07:49 Amiodarone 200 Mg Tablet PO 05/21/24 08:59 200 mg QAM DORI Administration Apixaban 5 mg 05/21/23 17:30 05/31/23 05:03 Apixaban 5 Mg Tablet PO 05/20/24 17:29 5 mg Q12H DORI Administration Atorvastatin Calcium 20 mg 05/21/23 22:00 05/30/23 20:01 Atorvastatin 20 Mg Tablet PO 05/20/24 21:59 20 mg HS DORI Administration Bisacodyl 10 mg 05/21/23 14:25 Bisacodyl 10 Mg Supp.Rect DE 05/20/24 14:24 DAILY PRN Constipation Docusate Sodium 100 mg 05/21/23 14:25 Docusate 100 Mg Capsule PO 05/20/24 14:24 BID PRN Constipation Docusate Sodium 283 mg 05/21/23 14:25 Docusate Enema 283 Mg/5 Ml Enema DE 05/20/24 14:24 DAILY PRN Constipation Fish Oil 1,000 mg 05/21/23 21:00 05/31/23 07:49 [place]-3/Fish Oil 1,000 Mg Capsule PO 05/20/24 20:59 1,000 mg BID DORI Administration Furosemide 20 mg 05/22/23 09:00 05/31/23 07:49 Furosemide 20 Mg Tablet PO 05/21/24 08:59 20 mg DAILY DORI Administration Hydralazine HCl 50 mg 05/21/23 21:00 05/31/23 07:49 Hydralazine 50 Mg Tablet PO 05/20/24 20:59 50 mg BID DORI Administration Lactulose 30 gm 05/21/23 14:25 Lactulose 20 Gm/30 Ml Udc PO 05/20/24 14:24 DAILY PRN Constipation Lisinopril 20 mg 05/22/23 09:00 05/31/23 07:48 Lisinopril 20 Mg Tablet PO 05/21/24 08:59 20 mg DAILY DORI Administration Loperamide HCl 2 mg 05/21/23 21:10 05/25/23 09:55 Loperamide Liquid 2 Mg/15 Ml Udc PO 05/20/24 21:09 2 mg Q2H PRN Administration Loose Stool Loratadine 10 mg 05/22/23 09:00 05/31/23 07:49 Loratadine 10 Mg Tablet PO 05/21/24 08:59 10 mg DAILY DORI Administration Nebivolol 10 mg 05/22/23 09:00 05/31/23 07:48 Nebivolol 5 Mg Tablet PO 05/21/24 08:59 10 mg DAILY DORI Administration Nystatin 1 applic 05/22/23 09:00 05/31/23 07:50 Nystatin 100,000 Unit/Gram Powder 15 Gm Bottle TOPICAL 05/21/24 08:59 Not Given TID DORI Potassium Chloride 10 meq 05/22/23 09:00 05/31/23 07:49 Potassium Chloride Liquid 20 Meq/15 Ml Udc PO 05/21/24 08:59 10 meq DAILY DORI Administration Prednisone 10 mg 05/22/23 09:00 05/31/23 07:50 Prednisone 10 Mg Tablet PO 05/21/24 08:59 10 mg DAILY DORI Administration Pyridostigmine [place] 60 mg 05/21/23 18:00 05/31/23 07:50 Pyridostigmine [place] 60 Mg Tablet PO 05/20/24 17:59 60 mg QID DORI Administration Saccharomyces Boulardii 250 mg 05/30/23 21:00 05/31/23 07:49 Saccharomyces Boulardii 250 Mg Capsule PO 05/29/24 20:59 250 mg BID DORI Administration Sennosides 2 tab 05/22/23 12:00 Sennosides 8.6 Mg Tablet PO 05/21/24 11:59 DAILY@12 PRN If no BM in 2 days Triamterene/Hydrochlorothiazide 1 tab 05/22/23 09:00 05/31/23 07:49 Triamterene/Hctz 37.5-25mg 1 Tab Tablet PO 05/21/24 08:59 1 tab DAILY DORI Administration Assessment/Plan Assessment/Plan (1) Atrial fibrillation: Code(s): I48.91 - Unspecified atrial fibrillation Status: Acute (2) Morbid obesity with BMI of 50.0-59.9, adult: Code(s): E66.01 - Morbid (severe) obesity due to excess calories; Z68.43 - Body mass index [BMI] 50.0-59.9, adult Status: Acute (3) Impaired mobility and activities of daily living: Code(s): Z74.09 - Other reduced mobility; Z78.9 - Other specified health status Status: Acute (4) Myasthenia gravis: Code(s): G70.00 - Myasthenia gravis without (acute) exacerbation Status: Acute (5) Myasthenia gravis in crisis: Code(s): G70.01 - Myasthenia gravis with (acute) exacerbation Status: Acute (6) Pulmonary emboli: Code(s): I26.99 - Other pulmonary embolism without acute cor pulmonale Status: Acute (7) Hypertension: Code(s): I10 - Essential (primary) hypertension Status: Acute (8) Hyperlipidemia: Code(s): E78.5 - Hyperlipidemia, unspecified Status: Acute (9) Oropharyngeal dysphagia: Code(s): R13.12 - Dysphagia, oropharyngeal phase Status: Acute Plan 77-year-old male presenting to acute rehab with functional impairments secondary to myasthenic crisis. Initially admitted to [facility] later transferred to [facility] for neurology services. Had to be intubated for airway protection. Successfully extubated on 05/15 and has been tolerating well. * C. difficile negative. Had fiber to bulk the stool. * Improving, ambulating 35 feet * Diet upgraded. Patient education Pressure ulcer prophylaxis; encourage mobilization, frequent postural changes, pressure-relief techniques DVT prophylaxis: Continue Eliquis. Encourage deep breathing exercise incentive spirometry. Monitor bladder. Toileting schedule. Continue current bladder management, with scans as needed and CIC if needed. Start bowel care program every day to obtain continence, prevent ileus. Maintain fall precautions Gait and balance retraining Functional training and self-care and home management, including activities of daily living and instrumental activities of daily living Provision of the necessary gait aids and functional adaptive equipment to enhance the patient's a functional holiness Ensure adequate nutrition and hydration Sleep: No concerns. Pain: Continue current regimen Discharge planning: Hopefully home with his end of next week. Plan: I completed a substantive portion of this encounter, the medical decision making portion of this note in its entirety, including Allied health note review, nursing note review, behavioral health consultant note review, discussion with nursing and case management, and more than 50% of my time was spent on counseling and coordination of care, time spent 25 minutes Patient was personally seen by me, Dr. Grover, on the day of encounter, reviewed the history and the relevant portions of the chart, including current orders, allied health and behavioral health consultant notes, labs/imaging and performed garcia elements of exam and I formulated the plan of care and facilitated the medical decision making. Documented By: Silvestre Grover MD 05/31/23 1017 Signed By: <Electronically signed by Silvestre Grover MD> 05/31/23 1021 [facility] Work Phone: 1(182) 201-858410-10-2023 Progress note Author Silvestre Grover [facility] May 30, 2023 12:01pm Note Date/Time May 30, 2023 1 2:01pm [facility] [address] [place] [address] Physiatry(Rehab) Progress Note Signed Patient: Taurus Garcia MR#: [id number] : 1945 Acct:[id number] Age/Sex: 77 / M Adm Date: 3 Loc: Room: 6E0673-8 Type: ADM IN Attending Dr: Silvestre Grover MD Copies to: ~ Date of Service: 05/30/2023 Subjective Subjective Narrative: Mr. Garcia is a 77 year old male with past medical history of myasthenia gravis,hypertension, A-fib anticoagulated with Eliquis, PE, CKD, obstructive sleep apnea on BiPAP, who presents to acute inpatient rehab with functional impairments due to MG crisis. Patient presented to [facility] on 05/11/2023 with complaints of worseninggeneralized weakness over the course of several days. He was found to be mildlyhypoxic. Also complaining of urinary symptoms. Initially admitted to [facility] for observation however developed worsening respiratory status with increased secretions and inability to protect own airway and was subsequently intubated and transferred to [facility] for neurology services. Patient received a 5-day course of IVIG per neurology recommendations. Home steroid dose was also escalated; pyridostigmine temporarily placed on hold. Pulmonology was following for vent management. Patient did develop a fever during hospitalization. Blood cultures x2 and sputum culture were negative. Successfully extubated on 05/15/2023. Had a few episodes of atrial fibrillation with RVR requiring amiodarone infusion. Will demonstrated EF of 60 to 65%, mildLVH and trace tricuspid regurgitation. Developed transient bradycardia which have resolved. Cardiology was consulted to assist with A-fib/RVR management. Recommended continuing amiodarone for the next 6 weeks or until resolution of myasthenic crisis. On rehab admission patient is alert, oriented, answering questions appropriately. Voices no specific complaints. Generalized weakness seems to be improving although still has difficult time moving lower extremities. No other neurologic or cardiopulmonary complaints. Respiratory status is back at baseline. Per patient report, prior to most recent admission he was fully independent and ambulatory without assistive device. He lives with who will be able to assist with ADLs if needed. Interval History: Continues to improve functionally. Reviewed at team meeting. Plan will be for home towards the end of next week. Therapy notes continued diarrhea limiting the beginning of his morning sessions. Review of Systems Review of Systems All other systems reviewed & are negative unless noted below or in HPI Exam Physical Exam Vital Signs: Temp Pulse Resp BP Pulse Ox O2 Del Method O2 Flow Rate 98.5 F 52 L 18 121/66 92 L Room Air 2 05/30/23 05:03 05/30/23 05:03 05/30/23 05:03 05/30/23 05:03 05/30/23 05:03 05/30/23 08:30 05/25/23 00:00 Narrative: General: Awake, alert, oriented x3 HENT: Normal to inspection, normocephalic, atraumatic Eyes: PERRL, normal conjunctiva and sclera Neck: Normal ROM, normal visual inspection. Trachea midline. Cardio: Irregular heart rate then rhythm Respiratory: Clear to auscultation bilaterally. Normal respiratory effort. No respiratory distress. GI: Abdomen obese, soft, nontender, nondistended, active bowel sounds x4 quadrants Neuro: CN II-XII intact. Strength 5/5, equal bilaterally Extremities: No edema, erythema, cyanosis. Upper extremity strength 4+/5, lowerextremity strength 3/5 Psych: Mood and affect appropriate. Normal speech. Objective Labs 05/30/23 05:16 05/30/23 05:16 Labs: Laboratory Results - last 24 hr 05/30/23 05/30/23 05:16 05:16 Corrected WBC 5.6 Uncorrected WBC Count 5.6 RBC 4.25 Hgb 12.2 L Hct 36.5 L MCV 85.8 MCH 28.7 MCHC 33.4 RDW 18.1 H Plt Count 258 MPV 7.9 Neut % (Auto) 51.5 Lymph % (Auto) 29.7 [place] % (Auto) 14.8 Eos % (Auto) 3.8 Baso % (Auto) 0.2 Nucleat RBC Rel Count 0.2 Neut # (Auto) 2.9 Lymph # (Auto) 1.7 [place] # (Auto) 0.8 Eos # (Auto) 0.2 Baso # (Auto) 0.0 PHA Creatinine Clear 89.45 Sodium 140 Potassium 3.6 Chloride 104 Carbon Dioxide 30.6 Anion Gap 9.0 BUN 19 Creatinine 0.91 Est GFR (CKD-EPI) > 60.0 Glucose 98 Calcium 8.6 Medications and Allergies Allergies and Active Meds: Allergies No Known Allergies Allergy (Verified 12/27/17 16:51) Active Medications Generic Name Dose Route Start Last Admin Trade Name Lenoq PRN Reason Stop Dose Admin Acetaminophen 500 mg 05/21/23 14:25 Acetaminophen 500 Mg Tablet PO 05/20/24 14:24 Q4H PRN Pain Al Hydrox/Mg Hydrox/Simethicone 30 ml 05/21/23 14:25 Mag Hydrox/Al Hydrox/Simeth 30 Ml Udc PO 05/20/24 14:24 Q4H PRN Indigestion Amiodarone HCl 200 mg 05/22/23 09:00 05/30/23 08:31 Amiodarone 200 Mg Tablet PO 05/21/24 08:59 200 mg QAM DORI Administration Apixaban 5 mg 05/21/23 17:30 05/30/23 05:07 Apixaban 5 Mg Tablet PO 05/20/24 17:29 5 mg Q12H DORI Administration Atorvastatin Calcium 20 mg 05/21/23 22:00 05/29/23 21:05 Atorvastatin 20 Mg Tablet PO 05/20/24 21:59 20 mg HS DORI Administration Bisacodyl 10 mg 05/21/23 14:25 Bisacodyl 10 Mg Supp.Rect DE 05/20/24 14:24 DAILY PRN Constipation Docusate Sodium 100 mg 05/21/23 14:25 Docusate 100 Mg Capsule PO 05/20/24 14:24 BID PRN Constipation Docusate Sodium 283 mg 05/21/23 14:25 Docusate Enema 283 Mg/5 Ml Enema DE 05/20/24 14:24 DAILY PRN Constipation Fish Oil 1,000 mg 05/21/23 21:00 05/30/23 08:30 [place]-3/Fish Oil 1,000 Mg Capsule PO 05/20/24 20:59 1,000 mg BID DORI Administration Furosemide 20 mg 05/22/23 09:00 05/30/23 08:31 Furosemide 20 Mg Tablet PO 05/21/24 08:59 20 mg DAILY DORI Administration Hydralazine HCl 50 mg 05/21/23 21:00 05/30/23 08:31 Hydralazine 50 Mg Tablet PO 05/20/24 20:59 50 mg BID DORI Administration Lactulose 30 gm 05/21/23 14:25 Lactulose 20 Gm/30 Ml Udc PO 05/20/24 14:24 DAILY PRN Constipation Lisinopril 20 mg 05/22/23 09:00 05/30/23 08:30 Lisinopril 20 Mg Tablet PO 05/21/24 08:59 20 mg DAILY DORI Administration Loperamide HCl 2 mg 05/21/23 21:10 05/25/23 09:55 Loperamide Liquid 2 Mg/15 Ml Udc PO 05/20/24 21:09 2 mg Q2H PRN Administration Loose Stool Loratadine 10 mg 05/22/23 09:00 05/30/23 08:31 Loratadine 10 Mg Tablet PO 05/21/24 08:59 10 mg DAILY DORI Administration Nebivolol 10 mg 05/22/23 09:00 05/30/23 08:30 Nebivolol 5 Mg Tablet PO 05/21/24 08:59 10 mg DAILY DORI Administration Nystatin 1 applic 05/22/23 09:00 05/30/23 08:31 Nystatin 100,000 Unit/Gram Powder 15 Gm Bottle TOPICAL 05/21/24 08:59 1 applic TID DORI Administration Potassium Chloride 10 meq 05/22/23 09:00 05/30/23 08:30 Potassium Chloride Liquid 20 Meq/15 Ml Udc PO 05/21/24 08:59 10 meq DAILY DORI Administration Prednisone 10 mg 05/22/23 09:00 05/30/23 08:31 Prednisone 10 Mg Tablet PO 05/21/24 08:59 10 mg DAILY DORI Administration Pyridostigmine [place] 60 mg 05/21/23 18:00 05/30/23 08:30 Pyridostigmine [place] 60 Mg Tablet PO 05/20/24 17:59 60 mg QID DORI Administration Saccharomyces Boulardii 250 mg 05/30/23 21:00 Saccharomyces [place]ii 250 Mg Capsule PO 05/29/24 20:59 BID DORI Sennosides 2 tab 05/22/23 12:00 Sennosides 8.6 Mg Tablet PO 05/21/24 11:59 DAILY@12 PRN If no BM in 2 days Triamterene/Hydrochlorothiazide 1 tab 05/22/23 09:00 05/30/23 08:31 Triamterene/Hctz 37.5-25mg 1 Tab Tablet PO 05/21/24 08:59 1 tab DAILY DORI Administration Assessment/Plan Assessment/Plan (1) Atrial fibrillation: Code(s): I48.91 - Unspecified atrial fibrillation Status: Acute (2) Morbid obesity with BMI of 50.0-59.9, adult: Code(s): E66.01 - Morbid (severe) obesity due to excess calories; Z68.43 - Body mass index [BMI] 50.0-59.9, adult Status: Acute (3) Impaired mobility and activities of daily living: Code(s): Z74.09 - Other reduced mobility; Z78.9 - Other specified health status Status: Acute (4) Myasthenia gravis: Code(s): G70.00 - Myasthenia gravis without (acute) exacerbation Status: Acute (5) Myasthenia gravis in crisis: Code(s): G70.01 - Myasthenia gravis with (acute) exacerbation Status: Acute (6) Pulmonary emboli: Code(s): I26.99 - Other pulmonary embolism without acute cor pulmonale Status: Acute (7) Hypertension: Code(s): I10 - Essential (primary) hypertension Status: Acute (8) Hyperlipidemia: Code(s): E78.5 - Hyperlipidemia, unspecified Status: Acute (9) Oropharyngeal dysphagia: Code(s): R13.12 - Dysphagia, oropharyngeal phase Status: Acute Plan 77-year-old male presenting to acute rehab with functional impairments secondary to myasthenic crisis. Initially admitted to [facility] later transferred to [facility] for neurology services. Had to be intubated for airway protection. Successfully extubated on 05/15 and has been tolerating well. * Progressing with therapy. Diarrhea is limiting. This is likely secondary to his pyrodostigmine, but I am hesitant to decrease the dose due to his functional improvement. We will add probiotic and monitor. * Check c.diff Patient education Pressure ulcer prophylaxis; encourage mobilization, frequent postural changes, pressure-relief techniques DVT prophylaxis: Continue Eliquis. Encourage deep breathing exercise incentive spirometry. Monitor bladder. Toileting schedule. Continue current bladder management, with scans as needed and CIC if needed. Start bowel care program every day to obtain continence, prevent ileus. Maintain fall precautions Gait and balance retraining Functional training and self-care and home management, including activities of daily living and instrumental activities of daily living Provision of the necessary gait aids and functional adaptive equipment to enhance the patient's a functional holiness Ensure adequate nutrition and hydration Sleep: No concerns. Pain: Continue current regimen Discharge planning: Hopefully home with his end of next week. Plan: I completed a substantive portion of this encounter, the medical decision making portion of this note in its entirety, including Allied health note review, nursing note review, behavioral health consultant note review, discussion with nursing and case management, and more than 50% of my time was spent on counseling and coordination of care, time spent 25 minutes Patient was personally seen by me, Dr. Grover, on the day of encounter, reviewed the history and the relevant portions of the chart, including current orders, allied health and behavioral health consultant notes, labs/imaging and performed garcia elements of exam and I formulated the plan of care and facilitated the medical decision making. Documented By: Silvestre Grover MD 05/30/23 1157 Signed By: <Electronically signed by Silvestre Grover MD> 05/30/23 1201 [facility] Work Phone: 1(846) 143-668810-09-2023 Progress note Author Silvestre Grover [facility] May 29, 2023 1:20pm Note Date/Time May 29, 2023 11 :42am [facility] [address] [place] [address] Physiatry(Rehab) Progress Note Signed Patient: Taurus Garcia MR#: [id number] : 1945 Acct:[id number] Age/Sex: 77 / M Adm Date: 3 Loc: Room: [address] [place] [address] Type: ADM IN Attending Dr: Silvestre Grover MD Copies to: ~ <Antonia Grier APRN - Last Filed: 05/29/23 11:42> Date of Service: 05/29/2023 Subjective <Antonia Grier APRN - Last Filed: 05/29/23 11:42> Subjective Narrative: Mr. Garcia is a 77 year old male with past medical history of myasthenia gravis,hypertension, A-fib anticoagulated with Eliquis, PE, CKD, obstructive sleep apnea on BiPAP, who presents to acute inpatient rehab with functional impairments due to MG crisis. Patient presented to [facility] on 05/11/2023 with complaints of worseninggeneralized weakness over the course of several days. He was found to be mildlyhypoxic. Also complaining of urinary symptoms. Initially admitted to [facility] for observation however developed worsening respiratory status with increased secretions and inability to protect own airway and was subsequently intubated and transferred to [facility] for neurology services. Patient received a 5-day course of IVIG per neurology recommendations. Home steroid dose was also escalated; pyridostigmine temporarily placed on hold. Pulmonology was following for vent management. Patient did develop a fever during hospitalization. Blood cultures x2 and sputum culture were negative. Successfully extubated on 05/15/2023. Had a few episodes of atrial fibrillation with RVR requiring amiodarone infusion. Will demonstrated EF of 60 to 65%, mildLVH and trace tricuspid regurgitation. Developed transient bradycardia which have resolved. Cardiology was consulted to assist with A-fib/RVR management. Recommended continuing amiodarone for the next 6 weeks or until resolution of myasthenic crisis. On rehab admission patient is alert, oriented, answering questions appropriately. Voices no specific complaints. Generalized weakness seems to beimproving although still has difficult time moving lower extremities. No other neurologic or cardiopulmonary complaints. Respiratory status is back at baseline. Per patient report, prior to most recent admission he was fully independent and ambulatory without assistive device. He lives with who will be able to assist with ADLs if needed. Interval History: Patient evaluated at the bedside while comfortably resting in his bed. He is alert, oriented, pleasant and cooperative. He denies pain or discomfort. Vital signs remain within normal limits. Patient does admit to a poor night sleep due to BiPAP continuously beeping due to air leak. He is wondering if the mask is now too big or too small on him causing the issue. Wondering if it is okay not to wear BiPAP at night. Educated the patient about the importance of wearing BiPAP every night. Will have respiratory therapy assess the fit of the mask to see if there is any way they can be adjusted to prevent air leaks. Verbalizes understanding. Otherwise, no concerns. Pleased with his progress so far. He is practicing standing in parallel bars/making steps. Continues to require max assist/DEP forall activities. Review of Systems <Antonia Grier APRN - Last Filed: 05/29/23 11:42> Review of Systems All other systems reviewed & are negative unless noted below or in HPI Exam <Antonia Grier APRN - Last Filed: 05/29/23 11:42> Physical Exam Vital Signs: Temp Pulse Resp BP Pulse Ox O2 Del Method O2 Flow Rate 98.5 F 60 18 113/74 96 Room Air 2 05/29/23 08:25 05/29/23 08:25 05/29/23 08:25 05/29/23 08:25 05/29/23 08:25 05/29/23 09:44 05/25/23 00:00 Narrative: General: Awake, alert, oriented x3 HENT: Normal to inspection, normocephalic, atraumatic Eyes: PERRL, normal conjunctiva and sclera Neck: Normal ROM, normal visual inspection. Trachea midline. Cardio: Irregular heart rate then rhythm Respiratory: Clear to auscultation bilaterally. Normal respiratory effort. No respiratory distress. GI: Abdomen obese, soft, nontender, nondistended, active bowel sounds x4 quadrants Neuro: CN II-XII intact. Strength 5/5, equal bilaterally Extremities: No edema, erythema, cyanosis. Upper extremity strength 4+/5, lowerextremity strength 1+/5. Psych: Mood and affect appropriate. Normal speech. Objective <Antonia Grier, AUTISM MOTOR SPECIALIST - Last Filed: 05/29/23 11:42> Labs 05/22/23 08:23 05/22/23 08:23 Medications and Allergies Allergies and Active Meds: Allergies No Known Allergies Allergy (Verified 12/27/17 16:51) Active Medications Generic Name Dose Route Start Last Admin Trade Name Freq PRN Reason Stop Dose Admin Acetaminophen 500 mg 05/21/23 14:25 Acetaminophen 500 Mg Tablet PO 05/20/24 14:24 Q4H PRN Pain Al Hydrox/Mg Hydrox/Simethicone 30 ml 05/21/23 14:25 Mag Hydrox/Al Hydrox/Simeth 30 Ml Udc PO 05/20/24 14:24 Q4H PRN Indigestion Amiodarone HCl 200 mg 05/22/23 09:00 05/29/23 08:29 Amiodarone 200 Mg Tablet PO 05/21/24 08:59 200 mg QAM DORI Administration Apixaban 5 mg 05/21/23 17:30 05/29/23 05:43 Apixaban 5 Mg Tablet PO 05/20/24 17:29 5 mg Q12H DORI Administration Atorvastatin Calcium 20 mg 05/21/23 22:00 05/28/23 20:40 Atorvastatin 20 Mg Tablet PO 05/20/24 21:59 20 mg HS DORI Administration Bisacodyl 10 mg 05/21/23 14:25 Bisacodyl 10 Mg Supp.Rect DE 05/20/24 14:24 DAILY PRN Constipation Docusate Sodium 100 mg 05/21/23 14:25 Docusate 100 Mg Capsule PO 05/20/24 14:24 BID PRN Constipation Docusate Sodium 283 mg 05/21/23 14:25 Docusate Enema 283 Mg/5 Ml Enema DE 05/20/24 14:24 DAILY PRN Constipation Fish Oil 1,000 mg 05/21/23 21:00 05/29/23 08:28 [place]-3/Fish Oil 1,000 Mg Capsule PO 05/20/24 20:59 1,000 mg BID DORI Administration Furosemide 20 mg 05/22/23 09:00 05/29/23 08:28 Furosemide 20 Mg Tablet PO 05/21/24 08:59 20 mg DAILY DORI Administration Hydralazine HCl 50 mg 05/21/23 21:00 05/29/23 08:29 Hydralazine 50 Mg Tablet PO 05/20/24 20:59 50 mg BID DORI Administration Lactulose 30 gm 05/21/23 14:25 Lactulose 20 Gm/30 Ml Udc PO 05/20/24 14:24 DAILY PRN Constipation Lisinopril 20 mg 05/22/23 09:00 05/29/23 08:28 Lisinopril 20 Mg Tablet PO 05/21/24 08:59 20 mg DAILY DORI Administration Loperamide HCl 2 mg 05/21/23 21:10 05/25/23 09:55 Loperamide Liquid 2 Mg/15 Ml Udc PO 05/20/24 21:09 2 mg Q2H PRN Administration Loose Stool Loratadine 10 mg 05/22/23 09:00 05/29/23 08:29 Loratadine 10 Mg Tablet PO 05/21/24 08:59 10 mg DAILY DORI Administration Nebivolol 10 mg 05/22/23 09:00 05/29/23 08:29 Nebivolol 5 Mg Tablet PO 05/21/24 08:59 10 mg DAILY DORI Administration Nystatin 1 applic 05/22/23 09:00 05/29/23 08:29 Nystatin 100,000 Unit/Gram Powder 15 Gm Bottle TOPICAL 05/21/24 08:59 1 applic TID DORI Administration Potassium Chloride 10 meq 05/22/23 09:00 05/29/23 08:29 Potassium Chloride Liquid 20 Meq/15 Ml Udc PO 05/21/24 08:59 10 meq DAILY DORI Administration Prednisone 10 mg 05/22/23 09:00 05/29/23 08:29 Prednisone 10 Mg Tablet PO 05/21/24 08:59 10 mg DAILY DORI Administration Pyridostigmine [place] 60 mg 05/21/23 18:00 05/29/23 08:29 Pyridostigmine [place] 60 Mg Tablet PO 05/20/24 17:59 60 mg QID DORI Administration Sennosides 2 tab 05/22/23 12:00 Sennosides 8.6 Mg Tablet PO 05/21/24 11:59 DAILY@12 PRN If no BM in 2 days Triamterene/Hydrochlorothiazide 1 tab 05/22/23 09:00 05/29/23 08:28 Triamterene/Hctz 37.5-25mg 1 Tab Tablet PO 05/21/24 08:59 1 tab DAILY DORI Administration Assessment/Plan <Antonia RodZACH ramon - Last Filed: 05/29/23 11:42> Assessment/Plan (1) Atrial fibrillation: Code(s): I48.91 - Unspecified atrial fibrillation Status: Acute (2) Morbid obesity with BMI of 50.0-59.9, adult: Code(s): E66.01 - Morbid (severe) obesity due to excess calories; Z68.43 - Body mass index [BMI] 50.0-59.9, adult Status: Acute (3) Impaired mobility and activities of daily living: Code(s): Z74.09 - Other reduced mobility; Z78.9 - Other specified health status Status: Acute (4) Myasthenia gravis: Code(s): G70.00 - Myasthenia gravis without (acute) exacerbation Status: Acute (5) Myasthenia gravis in crisis: Code(s): G70.01 - Myasthenia gravis with (acute) exacerbation Status: Acute (6) Pulmonary emboli: Code(s): I26.99 - Other pulmonary embolism without acute cor pulmonale Status: Acute (7) Hypertension: Code(s): I10 - Essential (primary) hypertension Status: Acute (8) Hyperlipidemia: Code(s): E78.5 - Hyperlipidemia, unspecified Status: Acute (9) Oropharyngeal dysphagia: Code(s): R13.12 - Dysphagia, oropharyngeal phase Status: Acute Plan 77-year-old male presenting to acute rehab with functional impairments secondary to myasthenic crisis. Initially admitted to [facility] later transferred to [facility] for neurology services. Had to be intubated for airway protection. Successfully extubated on 05/15 and has been tolerating well. * Requested respiratory therapy to evaluate patient's BiPAP mask fit to see if any adjustments could be made to avoid air leak alarms at night. * Stable and slowly improving. Getting a little stronger every day. Stands in parallel bars for a few minutes, making a few steps with a walker. GI symptoms seem to be improving with Imodium. * Will repeat labs tomorrow. Patient education Pressure ulcer prophylaxis; encourage mobilization, frequent postural changes, pressure-relief techniques DVT prophylaxis: Continue Eliquis. Encourage deep breathing exercise incentive spirometry. Monitor bladder. Toileting schedule. Continue current bladder management, with scans as needed and CIC if needed. Start bowel care program every day to obtain continence, prevent ileus. Maintain fall precautions Gait and balance retraining Functional training and self-care and home management, including activities of daily living and instrumental activities of daily living Provision of the necessary gait aids and functional adaptive equipment to enhance the patient's a functional holiness Ensure adequate nutrition and hydration Sleep: No concerns. Pain: Continue current regimen Discharge planning: Hopefully home with his in 3 weeks. I spent greater than 15 minutes for services, including [id number] encounter with the patient, discussion of the case, plan of care, and exam; and [id number] activities, such as reviewing pertinent behavioral health consultant documentation, recent therapy notes, laboratory and radiology studies, and discussion of case with care team including physician, nursing, shelter case manager, and therapists. More than 50 % of time was spent on patient/family counseling or coordination of care. <Silvestre Grover MD - Last Filed: 05/29/23 13:20> Assessment/Plan (1) Atrial fibrillation: (2) Morbid obesity with BMI of 50.0-59.9, adult: (3) Impaired mobility and activities of daily living: (4) Myasthenia gravis: (5) Myasthenia gravis in crisis: (6) Pulmonary emboli: (7) Hypertension: (8) Hyperlipidemia: (9) Oropharyngeal dysphagia: Plan: I completed a substantive portion of this encounter, the medical decision making portion of this note in its entirety, including Allied health note review, nursing note review, behavioral health consultant note review, discussion with nursing and case management, and more than 50% of my time was spent on counseling and coordination of care, time spent 25 minutes Patient was personally seen by me, Dr. Grover, on the day of encounter, reviewed the history and the relevant portions of the chart, including current orders, allied health and behavioral health consultant notes, labs/imaging and performed garcia elements of exam and I formulated the plan of care and facilitated the medical decision making. Discontinue harrell as mobility improves. Making good functional progress. Documented By: Antonia Grier APRN 05/29/23 1 133 Signed By: <Electronically signed by ZACH Grier> 05/29/23 1142 <Electronically signed by Silvestre Grover MD> 05/29/23 1320 [facility] Work Phone: 1(377) 757-751910-06-2023 Progress note Author Silvestre Grover [facility] May 26, 2023 3:42pm Note Date/Time May 25, 2023 11 :38am [facility] [address] [place] [address] Physiatry(Rehab) Progress Note Signed Patient: Taurus Garcia MR#: [id number] : 1945 Acct:[id number] Age/Sex: 77 / M Adm Date: 3 Loc: Room: [address] [place] [address] Type: ADM IN Attending Dr: Silvestre Grover MD Copies to: ~ <Antonia Grier APRN - Last Filed: 05/25/23 11:50> Date of Service: 05/25/2023 Subjective <nAtonia Grier APRN - Last Filed: 05/25/23 11:50> Subjective Narrative: Mr. Garcia is a 77 year old male with past medical history of myasthenia gravis,hypertension, A-fib anticoagulated with Eliquis, PE, CKD, obstructive sleep apnea on BiPAP, who presents to acute inpatient rehab with functional impairments due to MG crisis. Patient presented to [facility] on 05/11/2023 with complaints of worseninggeneralized weakness over the course of several days. He was found to be mildlyhypoxic. Also complaining of urinary symptoms. Initially admitted to [facility] for observation however developed worsening respiratory status with increased secretions and inability to protect own airway and was subsequently intubated and transferred to [facility] for neurology services. Patient received a 5-day course of IVIG per neurology recommendations. Home steroid dose was also escalated; pyridostigmine temporarily placed on hold. Pulmonology was following for vent management. Patient did develop a fever during hospitalization. Blood cultures x2 and sputum culture were negative. Successfully extubated on 05/15/2023. Had a few episodes of atrial fibrillation with RVR requiring amiodarone infusion. Will demonstrated EF of 60 to 65%, mildLVH and trace tricuspid regurgitation. Developed transient bradycardia which have resolved. Cardiology was consulted to assist with A-fib/RVR management. Recommended continuing amiodarone for the next 6 weeks or until resolution of myasthenic crisis. On rehab admission patient is alert, oriented, answering questions appropriately. Voices no specific complaints. Generalized weakness seems to beimproving although still has difficult time moving lower extremities. No other neurologic or cardiopulmonary complaints. Respiratory status is back at baseline. Per patient report, prior to most recent admission he was fully independent and ambulatory without assistive device. He lives with who will be able to assist with ADLs if needed. Interval History: Patient seen and evaluated in his room. He is sitting comfortably in a wheelchair. Reports no acute events overnight, no major complaints this morning. He did receive an Imodium this morning, so far has only had 1 loose stool. No complaints of abdominal pain or nausea. Remains mildly bradycardic, denies symptoms BP stable. Feeling better overall although still profoundly weak. Stood in parallel bars with assistance but was not yet able to make steps. Review of Systems <Antonia Grier APRN - Last Filed: 05/25/23 11:50> Review of Systems All other systems reviewed & are negative unless noted below or in HPI Exam <Antonia Grier APRN - Last Filed: 05/25/23 11:50> Physical Exam Vital Signs: Temp Pulse Resp BP Pulse Ox O2 Del Method O2 Flow Rate 98.3 F 58 L 19 114/66 95 Room Air 2 05/25/23 05:00 05/25/23 05:00 05/25/23 05:00 05/25/23 05:00 05/25/23 05:00 05/25/23 08:04 05/25/23 00:00 Narrative: General: Awake, alert, oriented x3 HENT: Normal to inspection, normocephalic, atraumatic Eyes: PERRL, normal conjunctiva and sclera Neck: Normal ROM, normal visual inspection. Trachea midline. Cardio: Irregular heart rate then rhythm Respiratory: Clear to auscultation bilaterally. Normal respiratory effort. No respiratory distress. GI: Abdomen obese, soft, nontender, nondistended, active bowel sounds x4 quadrants Neuro: CN II-XII intact. Strength 5/5, equal bilaterally Extremities: No edema, erythema, cyanosis. Upper extremity strength 4+/5, lowerextremity strength 1+/5. Psych: Mood and affect appropriate. Normal speech. Objective <Antonia Grier, AUTISM MOTOR SPECIALIST - Last Filed: 05/25/23 11:50> Labs 05/22/23 08:23 05/22/23 08:23 Medications and Allergies Allergies and Active Meds: Allergies No Known Allergies Allergy (Verified 12/27/17 16:51) Active Medications Generic Name Dose Route Start Last Admin Trade Name Freq PRN Reason Stop Dose Admin Acetaminophen 500 mg 05/21/23 14:25 Acetaminophen 500 Mg Tablet PO 05/20/24 14:24 Q4H PRN Pain Al Hydrox/Mg Hydrox/Simethicone 30 ml 05/21/23 14:25 Mag Hydrox/Al Hydrox/Simeth 30 Ml Udc PO 05/20/24 14:24 Q4H PRN Indigestion Amiodarone HCl 200 mg 05/22/23 09:00 05/25/23 09:27 Amiodarone 200 Mg Tablet PO 05/21/24 08:59 200 mg QAM DORI Administration Apixaban 5 mg 05/21/23 17:30 05/25/23 06:03 Apixaban 5 Mg Tablet PO 05/20/24 17:29 5 mg Q12H DORI Administration Atorvastatin Calcium 20 mg 05/21/23 22:00 05/24/23 20:30 Atorvastatin 20 Mg Tablet PO 05/20/24 21:59 20 mg HS DORI Administration Bisacodyl 10 mg 05/21/23 14:25 Bisacodyl 10 Mg Supp.Rect DE 05/20/24 14:24 DAILY PRN Constipation Docusate Sodium 100 mg 05/21/23 14:25 Docusate 100 Mg Capsule PO 05/20/24 14:24 BID PRN Constipation Docusate Sodium 283 mg 05/21/23 14:25 Docusate Enema 283 Mg/5 Ml Enema DE 05/20/24 14:24 DAILY PRN Constipation Fish Oil 1,000 mg 05/21/23 21:00 05/25/23 09:34 [place]-3/Fish Oil 1,000 Mg Capsule PO 05/20/24 20:59 1,000 mg BID DORI Administration Furosemide 20 mg 05/22/23 09:00 05/25/23 09:27 Furosemide 20 Mg Tablet PO 05/21/24 08:59 20 mg DAILY DORI Administration Hydralazine HCl 50 mg 05/21/23 21:00 05/25/23 09:27 Hydralazine 50 Mg Tablet PO 05/20/24 20:59 50 mg BID DORI Administration Lactulose 30 gm 05/21/23 14:25 Lactulose 20 Gm/30 Ml Udc PO 05/20/24 14:24 DAILY PRN Constipation Lisinopril 20 mg 05/22/23 09:00 05/25/23 09:27 Lisinopril 20 Mg Tablet PO 05/21/24 08:59 20 mg DAILY DORI Administration Loperamide HCl 2 mg 05/21/23 21:10 05/25/23 09:55 Loperamide Liquid 2 Mg/15 Ml Udc PO 05/20/24 21:09 2 mg Q2H PRN Administration Loose Stool Loratadine 10 mg 05/22/23 09:00 05/25/23 09:27 Loratadine 10 Mg Tablet PO 05/21/24 08:59 10 mg DAILY DORI Administration Nebivolol 10 mg 05/22/23 09:00 05/25/23 09:27 Nebivolol 5 Mg Tablet PO 05/21/24 08:59 10 mg DAILY DORI Administration Nystatin 1 applic 05/22/23 09:00 05/24/23 20:30 Nystatin 100,000 Unit/Gram Powder 15 Gm Bottle TOPICAL 05/21/24 08:59 1 applic TID DORI Administration Potassium Chloride 10 meq 05/22/23 09:00 05/25/23 09:28 Potassium Chloride Liquid 20 Meq/15 Ml Udc PO 05/21/24 08:59 10 meq DAILY DORI Administration Prednisone 10 mg 05/22/23 09:00 05/25/23 09:27 Prednisone 10 Mg Tablet PO 05/21/24 08:59 10 mg DAILY DORI Administration Pyridostigmine [place] 60 mg 05/21/23 18:00 05/25/23 09:27 Pyridostigmine [place] 60 Mg Tablet PO 05/20/24 17:59 60 mg QID DORI Administration Sennosides 2 tab 05/22/23 12:00 Sennosides 8.6 Mg Tablet PO 05/21/24 11:59 DAILY@12 PRN If no BM in 2 days Triamterene/Hydrochlorothiazide 1 tab 05/22/23 09:00 05/25/23 09:27 Triamterene/Hctz 37.5-25mg 1 Tab Tablet PO 05/21/24 08:59 1 tab DAILY DORI Administration Assessment/Plan <Antonia GrierZACH - Last Filed: 05/25/23 11:50> Assessment/Plan (1) Atrial fibrillation: Code(s): I48.91 - Unspecified atrial fibrillation Status: Acute (2) Morbid obesity with BMI of 50.0-59.9, adult: Code(s): E66.01 - Morbid (severe) obesity due to excess calories; Z68.43 - Body mass index [BMI] 50.0-59.9, adult Status: Acute (3) Impaired mobility and activities of daily living: Code(s): Z74.09 - Other reduced mobility; Z78.9 - Other specified health status Status: Acute (4) Myasthenia gravis: Code(s): G70.00 - Myasthenia gravis without (acute) exacerbation Status: Acute (5) Myasthenia gravis in crisis: Code(s): G70.01 - Myasthenia gravis with (acute) exacerbation Status: Acute (6) Pulmonary emboli: Code(s): I26.99 - Other pulmonary embolism without acute cor pulmonale Status: Acute (7) Hypertension: Code(s): I10 - Essential (primary) hypertension Status: Acute (8) Hyperlipidemia: Code(s): E78.5 - Hyperlipidemia, unspecified Status: Acute (9) Oropharyngeal dysphagia: Code(s): R13.12 - Dysphagia, oropharyngeal phase Status: Acute Plan 77-year-old male presenting to acute rehab with functional impairments secondary to myasthenic crisis. Initially admitted to [facility] later transferred to [facility] for neurology services. Had to be intubated for airway protection. Successfully extubated on 05/15 and has been tolerating well. * GI symptoms seem to be improving with Imodium. * Feels, is improving functionally. Able to do a little more in therapy although still dependent for most activities. * Okay to maintain a Harrell until mobility improves. * Continue to Mauricio wrap lower extremities to help with edema. Encourage elevation when possible. He does admit to some pain in the left lower extremity. Venous ultrasound ordered Patient education Pressure ulcer prophylaxis; encourage mobilization, frequent postural changes, pressure-relief techniques DVT prophylaxis: Continue Eliquis. Encourage deep breathing exercise incentive spirometry. Monitor bladder. Toileting schedule. Continue current bladder management, with scans as needed and CIC if needed. Start bowel care program every day to obtain continence, prevent ileus. Maintain fall precautions Gait and balance retraining Functional training and self-care and home management, including activities of daily living and instrumental activities of daily living Provision of the necessary gait aids and functional adaptive equipment to enhance the patient's a functional holiness Ensure adequate nutrition and hydration Sleep: No concerns. Pain: Continue current regimen Discharge planning: Hopefully home with his in 3 weeks. I spent greater than 15 minutes for services, including [id number] encounter with the patient, discussion of the case, plan of care, and exam; and [id number] activities, such as reviewing pertinent behavioral health consultant documentation, recent therapy notes, laboratory and radiology studies, and discussion of case with care team including physician, nursing, shelter case manager, and therapists. More than 50 % of time was spent on patient/family counseling or coordination of care. <Silvestre Grover MD - Last Filed: 05/26/23 15:42> Assessment/Plan (1) Atrial fibrillation: (2) Morbid obesity with BMI of 50.0-59.9, adult: (3) Impaired mobility and activities of daily living: (4) Myasthenia gravis: (5) Myasthenia gravis in crisis: (6) Pulmonary emboli: (7) Hypertension: (8) Hyperlipidemia: (9) Oropharyngeal dysphagia: Plan: I completed a substantive portion of this encounter, the medical decision making portion of this note in its entirety, including Allied health note review, nursing note review, behavioral health consultant note review, discussion with nursing and case management, and more than 50% of my time was spent on counseling and coordination of care, time spent 25 minutes Patient was personally seen by me, Dr. Grover, on the day of encounter, reviewed the history and the relevant portions of the chart, including current orders, allied health and behavioral health consultant notes, labs/imaging and performed garcia elements of exam and I formulated the plan of care and facilitated the medical decision making. Documented By: Antonia Grier APRN 05/25/23 1 136 Signed By: <Electronically signed by ZACH Grier> 05/25/23 1150 <Electronically signed by Silvestre Grover MD> 05/26/23 1542 [facility] Work Phone: 1(495) 532-784310-05-2023 Progress note Author Silvestre Grover [facility] May 25, 2023 8:34am Note Date/Time May 24, 2023 1: 11pm [facility] [address] [place] [address] Physiatry(Rehab) Progress Note Signed Patient: Taurus Garcia MR#: [id number] : 1945 Acct:[id number] Age/Sex: 77 / M Adm Date: 3 Loc: Room: [address] [place] [address] Type: ADM IN Attending Dr: Silvestre Grover MD Copies to: ~ Date of Service: 05/24/2023 Subjective Subjective Narrative: Mr. Garcia is a 77 year old male with past medical history of myasthenia gravis,hypertension, A-fib anticoagulated with Eliquis, PE, CKD, obstructive sleep apnea on BiPAP, who presents to acute inpatient rehab with functional impairments due to MG crisis. Patient presented to [facility] on 05/11/2023 with complaints of worseninggeneralized weakness over the course of several days. He was found to be mildlyhypoxic. Also complaining of urinary symptoms. Initially admitted to [facility] for observation however developed worsening respiratory status with increased secretions and inability to protect own airway and was subsequently intubated and transferred to [facility] for neurology services. Patient received a 5-day course of IVIG per neurology recommendations. Home steroid dose was also escalated; pyridostigmine temporarily placed on hold. Pulmonology was following for vent management. Patient did develop a fever during hospitalization. Blood cultures x2 and sputum culture were negative. Successfully extubated on 05/15/2023. Had a few episodes of atrial fibrillation with RVR requiring amiodarone infusion. Will demonstrated EF of 60 to 65%, mildLVH and trace tricuspid regurgitation. Developed transient bradycardia which have resolved. Cardiology was consulted to assist with A-fib/RVR management. Recommended continuing amiodarone for the next 6 weeks or until resolution of myasthenic crisis. On rehab admission patient is alert, oriented, answering questions appropriately. Voices no specific complaints. Generalized weakness seems to be improving although still has difficult time moving lower extremities. No other neurologic or cardiopulmonary complaints. Respiratory status is back at baseline. Per patient report, prior to most recent admission he was fully independent and ambulatory without assistive device. He lives with who will be able to assist with ADLs if needed. Interval History: He is heavy assist with therapy, but is working with them well, he was critically ill and is still fatiguing from his myasthenia. Weight is trending down, over 20lbs from hospital admission. Strength improving Has developed diarrhea, started on imodium. Harrell placed for urinary incontinence. Review of Systems Review of Systems All other systems reviewed & are negative unless noted below or in HPI Exam Physical Exam Vital Signs: Temp Pulse Resp BP Pulse Ox O2 Del Method O2 Flow Rate 98.3 F 57 L 18 132/60 95 Nasal Cannula 2 05/24/23 05:00 05/24/23 05:00 05/24/23 05:00 05/24/23 08:38 05/24/23 05:00 05/24/23 11:05 05/24/23 11:05 Narrative: General: Awake, alert, oriented x3 HENT: Normal to inspection, normocephalic, atraumatic Eyes: PERRL, normal conjunctiva and sclera Neck: Normal ROM, normal visual inspection. Trachea midline. Cardio: Irregular heart rate then rhythm Respiratory: Clear to auscultation bilaterally. Normal respiratory effort. No respiratory distress. GI: Abdomen obese, soft, nontender, nondistended, active bowel sounds x4 quadrants Neuro: CN II-XII intact. Strength 5/5, equal bilaterally Extremities: No edema, erythema, cyanosis. Upper extremity strength 4+/5, lowerextremity strength 1+/5. Psych: Mood and affect appropriate. Normal speech. Objective Labs 05/22/23 08:23 05/22/23 08:23 Medications and Allergies Allergies and Active Meds: Allergies No Known Allergies Allergy (Verified 12/27/17 16:51) Active Medications Generic Name Dose Route Start Last Admin Trade Name Freq PRN Reason Stop Dose Admin Acetaminophen 500 mg 05/21/23 14:25 Acetaminophen 500 Mg Tablet PO 05/20/24 14:24 Q4H PRN Pain Al Hydrox/Mg Hydrox/Simethicone 30 ml 05/21/23 14:25 Mag Hydrox/Al Hydrox/Simeth 30 Ml Udc PO 05/20/24 14:24 Q4H PRN Indigestion Amiodarone HCl 200 mg 05/22/23 09:00 05/24/23 08:34 Amiodarone 200 Mg Tablet PO 05/21/24 08:59 200 mg QAM DORI Administration Apixaban 5 mg 05/21/23 17:30 05/24/23 05:39 Apixaban 5 Mg Tablet PO 05/20/24 17:29 5 mg Q12H DORI Administration Atorvastatin Calcium 20 mg 05/21/23 22:00 05/23/23 20:20 Atorvastatin 20 Mg Tablet PO 05/20/24 21:59 20 mg HS DORI Administration Bisacodyl 10 mg 05/21/23 14:25 Bisacodyl 10 Mg Supp.Rect DE 05/20/24 14:24 DAILY PRN Constipation Docusate Sodium 100 mg 05/21/23 14:25 Docusate 100 Mg Capsule PO 05/20/24 14:24 BID PRN Constipation Docusate Sodium 283 mg 05/21/23 14:25 Docusate Enema 283 Mg/5 Ml Enema DE 05/20/24 14:24 DAILY PRN Constipation Fish Oil 1,000 mg 05/21/23 21:00 05/24/23 08:33 [place]-3/Fish Oil 1,000 Mg Capsule PO 05/20/24 20:59 1,000 mg BID DORI Administration Furosemide 20 mg 05/22/23 09:00 05/24/23 08:33 Furosemide 20 Mg Tablet PO 05/21/24 08:59 20 mg DAILY DORI Administration Hydralazine HCl 50 mg 05/21/23 21:00 05/24/23 08:34 Hydralazine 50 Mg Tablet PO 05/20/24 20:59 50 mg BID DORI Administration Lactulose 30 gm 05/21/23 14:25 Lactulose 20 Gm/30 Ml Udc PO 05/20/24 14:24 DAILY PRN Constipation Lisinopril 20 mg 05/22/23 09:00 05/24/23 08:34 Lisinopril 20 Mg Tablet PO 05/21/24 08:59 20 mg DAILY DORI Administration Loperamide HCl 2 mg 05/21/23 21:10 05/24/23 12:37 Loperamide Liquid 2 Mg/15 Ml Udc PO 05/20/24 21:09 2 mg Q2H PRN Administration Loose Stool Loratadine 10 mg 05/22/23 09:00 05/24/23 08:34 Loratadine 10 Mg Tablet PO 05/21/24 08:59 10 mg DAILY DORI Administration Nebivolol 10 mg 05/22/23 09:00 05/24/23 08:33 Nebivolol 5 Mg Tablet PO 05/21/24 08:59 10 mg DAILY DORI Administration Nystatin 1 applic 05/22/23 09:00 05/24/23 08:38 Nystatin 100,000 Unit/Gram Powder 15 Gm Bottle TOPICAL 05/21/24 08:59 1 applic TID DORI Administration Potassium Chloride 10 meq 05/22/23 09:00 05/24/23 08:34 Potassium Chloride Liquid 20 Meq/15 Ml Udc PO 05/21/24 08:59 10 meq DAILY DORI Administration Prednisone 10 mg 05/22/23 09:00 05/24/23 08:33 Prednisone 10 Mg Tablet PO 05/21/24 08:59 10 mg DAILY DORI Administration Pyridostigmine [place] 60 mg 05/21/23 18:00 05/24/23 08:33 Pyridostigmine [place] 60 Mg Tablet PO 05/20/24 17:59 60 mg QID DORI Administration Sennosides 2 tab 05/22/23 12:00 Sennosides 8.6 Mg Tablet PO 05/21/24 11:59 DAILY@12 PRN If no BM in 2 days Triamterene/Hydrochlorothiazide 1 tab 05/22/23 09:00 05/24/23 08:34 Triamterene/Hctz 37.5-25mg 1 Tab Tablet PO 05/21/24 08:59 1 tab DAILY DORI Administration Assessment/Plan Assessment/Plan (1) Atrial fibrillation: Code(s): I48.91 - Unspecified atrial fibrillation Status: Acute (2) Morbid obesity with BMI of 50.0-59.9, adult: Code(s): E66.01 - Morbid (severe) obesity due to excess calories; Z68.43 - Body mass index [BMI] 50.0-59.9, adult Status: Acute (3) Impaired mobility and activities of daily living: Code(s): Z74.09 - Other reduced mobility; Z78.9 - Other specified health status Status: Acute (4) Myasthenia gravis: Code(s): G70.00 - Myasthenia gravis without (acute) exacerbation Status: Acute (5) Myasthenia gravis in crisis: Code(s): G70.01 - Myasthenia gravis with (acute) exacerbation Status: Acute (6) Pulmonary emboli: Code(s): I26.99 - Other pulmonary embolism without acute cor pulmonale Status: Acute (7) Hypertension: Code(s): I10 - Essential (primary) hypertension Status: Acute (8) Hyperlipidemia: Code(s): E78.5 - Hyperlipidemia, unspecified Status: Acute (9) Oropharyngeal dysphagia: Code(s): R13.12 - Dysphagia, oropharyngeal phase Status: Acute Plan 77-year-old male presenting to acute rehab with functional impairments secondary to myasthenic crisis. Initially admitted to [facility] later transferred to [facility] for neurology services. Had to be intubated for airway protection. Successfully extubated on 05/15 and has been tolerating well. * Exam is slowly improving, he feels stronger each day, still max-dependent with therapy but this should improve * Weight trending down/stable * Place harrell * If diarrhea persists check c.diff * Recent labs and vitals reviewed, stable. * Continue Eliquis twice daily for A-fib per home regimen. Maintain amiodarone per cardiology recommendations x6 weeks. Obtain an EKG if tachycardic. Patient education Pressure ulcer prophylaxis; encourage mobilization, frequent postural changes, pressure-relief techniques DVT prophylaxis: Continue Eliquis. Encourage deep breathing exercise incentive spirometry. Monitor bladder. Toileting schedule. Continue current bladder management, with scans as needed and CIC if needed. Start bowel care program every day to obtain continence, prevent ileus. Maintain fall precautions Gait and balance retraining Functional training and self-care and home management, including activities of daily living and instrumental activities of daily living Provision of the necessary gait aids and functional adaptive equipment to enhance the patient's a functional holiness Ensure adequate nutrition and hydration Sleep: No concerns. Pain: Continue current regimen Discharge planning: Hopefully home with his in 3 weeks. Plan: I completed a substantive portion of this encounter, the medical decision making portion of this note in its entirety, including Allied health note review, nursing note review, behavioral health consultant note review, discussion with nursing and case management, and more than 50% of my time was spent on counseling and coordination of care, time spent 20 minutes Patient was personally seen by me, Dr. Grover, on the day of encounter, reviewed the history and the relevant portions of the chart, including current orders, allied health and behavioral health consultant notes, labs/imaging and performed garcia elements of exam and I formulated the plan of care and facilitated the medical decision making. Documented By: Silvestre Grover MD 05/24/23 1310 Signed By: <Electronically signed by Silvestre Grover MD> 05/25/23 9345 [facility] Work Phone: [phone] 805-864510-03-2023 Consult note Author Jarret Garza [facility] May 23, 2023 2:28pm Note Date/Time May 22, 2023 4: 54pm [facility] [address] [place] [address] Hospitalist Consult Note Signed Patient: Taurus Garcia MR#: [id number] : 1945 Acct:[id number] Age/Sex: 77 / M Adm Date: 3 Loc: Room: [address] [place] [address] Type: ADM IN Attending Dr: Silvestre Grover MD Copies to: MD Silvestre Gonsalves II, MD Linda Obika, APRN Obaydah M Daromar, MD~ HPI DATE OF CONSULTATION: 05/22/23 REQUESTING PROVIDER: Silvestre Grover Consult Narrative Reason for Consult: HTN, HLD, myasthenia gravis, CKD, PE HPI: Patient is a 77M with a PMHx of HTN, HLD, Myasthenia Gravis (Dx 2017), CKD, PE(On Eliquis) who was admitted to [facility] 05/09 for generalized weakness and was also found to be mildly hypoxic. He was intubated there then transferred to [facility] for evaluation and treatment of suspected acute myasthenia gravis exacerbation. Pulmonology was following for vent management, he received a 5-day course of IVIG per neurology recommendations. Blood cultures x2 and sputum cultures were negative he was successfully extubated on 05/15/2023. During his hospital stay he had a few episodes of atrial fibrillation with RVR requiring amiodarone infusion. Cardiology was consulted and he was continued on amiodarone for the next 6 weeksor until resolution of myasthenic crisis. He developed transient bradycardia which has since resolved. He was seen and evaluated by physical therapy who recommended acute inpatient rehabilitation. The hospitalist team has been consulted for medical management of hypertension and all other comorbidities. Patient seen and examined, resting comfortably in chair. Reports tolerating physical therapy well. Denies any pain or discomfort, currently on 2 L of oxygen with saturations in the high 90s. Denies chest pain or palpitation. No cough or pain with inspiration. No abdominal pain or indigestion, constipationor diarrhea, nausea or vomiting. No dysuria or retention. No headache or dizziness. No fevers Review of Systems Review of Systems Review of systems: Point review of systems obtained, negative unless noted in the HPI below PMFSH Source: Old Records Reviewed Medical History Acute exacerbation of myasthenia gravis Bladder cancer Congenital myasthenia gravis HTN (hypertension) Pulmonary emboli Family History Other Hypertension Social History Smoking Status: Never smoker Substance Use Type: None Substance Abuse Comment: little etoh Meds Medications and Allergies Allergies No Known Allergies Allergy (Verified 12/27/17 16:51) Home Medications hydralazine 50 mg tablet 50 mg PO BID 12/27/17 [History Confirmed 05/21/23] lisinopril 20 mg tablet 20 mg PO DAILY 12/27/17 [History Confirmed 05/21/23] loratadine 10 mg tablet (Allergy Relief (loratadine)) 10 mg PO DAILY 12/27/17 [History Confirmed 05/21/23] kvuhupxv-vum-sareg acid 0.4 mg-lycopene 300 mcg-lutein 250 mcg tablet (Adults 50Plus) 1 tab PO DAILY 12/27/17 [History Confirmed 05/21/23] omega-3 fatty acids-fish oil 360 mg-1,200 mg capsule (Fish Oil) 1 cap PO BID 12/27/17 [History Confirmed 05/21/23] prednisone 10 mg tablet 10 mg PO DAILY 12/27/17 [History Confirmed 05/21/23] pyridostigmine bromide 60 mg tablet 1 tab PO QID 12/27/17 [History Confirmed 05/21/23] simvastatin 40 mg tablet 40 mg PO HS 12/27/17 [History Confirmed 05/21/23] triamterene 37.5 mg-hydrochlorothiazide 25 mg tablet (Maxzide-25mg) 1 tab PO DAILY 12/27/17 [History Confirmed 05/21/23] apixaban 5 mg (74 tabs) tablets in a dose pack 5 mg PO Q12H 05/10/23 [History Confirmed 05/21/23] furosemide 20 mg tablet 20 mg PO DAILY 05/10/23 [History Confirmed 05/21/23] nebivolol 10 mg tablet 10 mg PO DAILY 05/10/23 [History Confirmed 05/21/23] potassium chloride 10 mEq tablet,extended release(part/cryst) 10 meq PO DAILY 05/10/23 [History Confirmed 05/21/23] amiodarone 200 mg tablet 200 mg PO QAM 30 days #30 tabs 05/19/23 [Rx Confirmed 05/21/23] Active Medications: Active Medications Generic Name Dose Route Start Last Admin Trade Name Freq PRN Reason Stop Dose Admin Acetaminophen 500 mg 05/21/23 14:25 Acetaminophen 500 Mg Tablet PO 05/20/24 14:24 Q4H PRN Pain Al Hydrox/Mg Hydrox/Simethicone 30 ml 05/21/23 14:25 Mag Hydrox/Al Hydrox/Simeth 30 Ml Udc PO 05/20/24 14:24 Q4H PRN Indigestion Amiodarone HCl 200 mg 05/22/23 09:00 05/22/23 08:57 Amiodarone 200 Mg Tablet PO 05/21/24 08:59 200 mg QAM DORI Administration Apixaban 5 mg 05/21/23 17:30 05/22/23 04:59 Apixaban 5 Mg Tablet PO 05/20/24 17:29 5 mg Q12H DORI Administration Atorvastatin Calcium 20 mg 05/21/23 22:00 05/21/23 21:57 Atorvastatin 20 Mg Tablet PO 05/20/24 21:59 20 mg HS DORI Administration Bisacodyl 10 mg 05/21/23 14:25 Bisacodyl 10 Mg Supp.Rect DE 05/20/24 14:24 DAILY PRN Constipation Docusate Sodium 100 mg 05/21/23 14:25 Docusate 100 Mg Capsule PO 05/20/24 14:24 BID PRN Constipation Docusate Sodium 283 mg 05/21/23 14:25 Docusate Enema 283 Mg/5 Ml Enema DE 05/20/24 14:24 DAILY PRN Constipation Fish Oil 1,000 mg 05/21/23 21:00 05/22/23 08:58 [place]-3/Fish Oil 1,000 Mg Capsule PO 05/20/24 20:59 1,000 mg BID DORI Administration Furosemide 20 mg 05/22/23 09:00 05/22/23 08:58 Furosemide 20 Mg Tablet PO 05/21/24 08:59 20 mg DAILY DORI Administration Hydralazine HCl 50 mg 05/21/23 21:00 05/22/23 08:57 Hydralazine 50 Mg Tablet PO 05/20/24 20:59 50 mg BID DORI Administration Lactulose 30 gm 05/21/23 14:25 Lactulose 20 Gm/30 Ml Udc PO 05/20/24 14:24 DAILY PRN Constipation Lisinopril 20 mg 05/22/23 09:00 05/22/23 08:57 Lisinopril 20 Mg Tablet PO 05/21/24 08:59 20 mg DAILY DORI Administration Loperamide HCl 2 mg 05/21/23 21:10 05/22/23 00:42 Loperamide Liquid 2 Mg/15 Ml Udc PO 05/20/24 21:09 2 mg Q2H PRN Administration Loose Stool Loratadine 10 mg 05/22/23 09:00 05/22/23 08:57 Loratadine 10 Mg Tablet PO 05/21/24 08:59 10 mg DAILY DORI Administration Nebivolol 10 mg 05/22/23 09:00 05/22/23 08:57 Nebivolol 5 Mg Tablet PO 05/21/24 08:59 10 mg DAILY DORI Administration Nystatin 1 applic 05/22/23 09:00 05/22/23 14:38 Nystatin 100,000 Unit/Gram Powder 15 Gm Bottle TOPICAL 05/21/24 08:59 1 applic TID DORI Administration Potassium Chloride 10 meq 05/22/23 09:00 05/22/23 08:59 Potassium Chloride Liquid 20 Meq/15 Ml Udc PO 05/21/24 08:59 10 meq DAILY DORI Administration Prednisone 10 mg 05/22/23 09:00 05/22/23 08:58 Prednisone 10 Mg Tablet PO 05/21/24 08:59 10 mg DAILY DORI Administration Pyridostigmine [place] 60 mg 10/01/23 18:00 05/22/23 14:40 Pyridostigmine [place] 60 Mg Tablet PO 05/20/24 17:59 60 mg QID DORI Administration Sennosides 2 tab 05/22/23 12:00 Sennosides 8.6 Mg Tablet PO 05/21/24 11:59 DAILY@12 PRN If no BM in 2 days Triamterene/Hydrochlorothiazide 1 tab 05/22/23 09:00 05/22/23 08:57 Triamterene/Hctz 37.5-25mg 1 Tab Tablet PO 05/21/24 08:59 1 tab DAILY DORI Administration Exam Physical Exam Vital Signs: Temp Pulse Resp BP Pulse Ox O2 Del Method O2 Flow Rate 98.5 F 59 L 20 111/69 94 L Nasal Cannula 2 05/22/23 14:39 05/22/23 14:39 05/22/23 14:39 05/22/23 14:39 05/22/23 14:39 05/22/23 12:25 05/22/23 14:39 Narrative: CONST- Appears well -developed and well nourished No acute distress. HEAD - Normocephalic and atraumatic EENT-Sclera nonicteric and conjunctive are nonerythemic, moist oral mucosa, pharynx clear NECK-Supple, no cervical lymphadenopathy CARDIAC-normal rate, regular rhythm, normal S1 & S2. PULM-diminished without wheeze or rhonchi, RA, no accessory muscle use or cough noted ABD - Soft. Bowel sounds are normal. No distention No tenderness EXTREM-no edema BLE calves nontender SKIN- W/D good turgo MS- MAEX4 spontaneously with equal with equal strength NEURO- A&Ox3 speech clear and tongue midline, equal facial symmetry no focal motor deficits PSYCH-Mood, affect and behavior appropriate Results Lab Results Labs: Laboratory Results - last 72 hr 05/22/23 08:23: PHA Creatinine Clear 100.28, Sodium 141, Potassium 3.7, [id number], Carbon Dioxide 30.8, Anion Gap 7.9, BUN 19, Creatinine 0.83, Est GFR (CKD-EPI) > 60.0, Glucose 92, Calcium 8.1 L, Total Bilirubin 0.6, AST 34, ALT 30, Alkaline Phosphatase 69, Total Protein 7.2, Albumin 2.5 L, Globulin 4.7, Albumin/Globulin Ratio 0.5, Prealbumin 11.9 L 05/22/23 08:23: Corrected WBC 7.3, Uncorrected WBC Count 7.3, RBC 4.42, Hgb 12.4L, Hct 38.0 L, MCV 86.0, MCH 28.0, MCHC 32.5, RDW 18.1 H, Plt Count 153, MPV 8.4, Neut % (Auto) 63.1, Lymph % (Auto) 20.4, Turner % (Auto) 10.8, Eos % (Auto) 5.4, Baso % (Auto) 0.3, Nucleat RBC Rel Count 0.1, Neut # (Auto) 4.6, Lymph # (Auto) 1.5, [place] # (Auto) 0.8, Eos # (Auto) 0.4, Baso # (Auto) 0.0 Assessment & Plan Assessment/Plan (1) Myasthenia gravis in crisis: (2) Impaired mobility and activities of daily living: Plan Myasthenia gravis crisis Impaired mobility and activities of daily living ?Plan of care for rehabilitation, PT/OT, DVT prophylaxis, bowel regimen per PM&Rteam ?On pyridostigmine 60 mg 4 times daily and prednisone Chronic conditions: 1. Atrial fibrillation/hypertension?on amiodarone, lisinopril, hydralazine, furosemide. Started on Maxide ?BP controlled, monitor closely for hypotension. 2. Pulmonary embolism?on Eliquis 3. HLD?on atorvastatin Documented By: Susanne Sharma APRN 05/22/23 1645 Signed By: <Electronically signed by ZACH Sharma> 05/23/23 1350 <Electronically signed by Jarret Garza MD> 05/23/23 1428 [facility] Work Phone: 1(990) 240-217210-02-2023 History and physical note Author Silvestre Grover [facility] May 22, 2023 3:50pm Note Date/Time May 22, 2023 10 :42am [facility] [address] [place] [address] Physiatry (Rehab) H&P Signed Patient: Taurus Garcia MR#: [id number] : 1945 Acct:[id number] Age/Sex: 77 / M Adm Date: 3 Loc: 5T Room: 6K7955-5 Type: ADM IN Attending Dr: Silvestre Grover MD Copies to: MD Antonia Gonsalves II, ZACH Grover MD~ <Antonia Grier APRN - Last Filed: 05/22/23 11:48> Date of Service: 05/22/2023 HPI <Antonia Grier APRN - Last Filed: 05/22/23 11:48> The patient was seen and examined on: 05/22/23 History of Present Illness: Mr. Garcia is a 77 year old male with past medical history of myasthenia gravis,hypertension, A-fib anticoagulated with Eliquis, PE, CKD, obstructive sleep apnea on BiPAP, who presents to acute inpatient rehab with functional impairments due to MG crisis. Patient presented to [facility] on 05/11/2023 with complaints of worseninggeneralized weakness over the course of several days. He was found to be mildlyhypoxic. Also complaining of urinary symptoms. Initially admitted to [facility] for observation however developed worsening respiratory status with increased secretions and inability to protect own airway and was subsequently intubated and transferred to [facility] for neurology services. Patient received a 5-day course of IVIG per neurology recommendations. Home steroid dose was also escalated; pyridostigmine temporarily placed on hold. Pulmonology was following for vent management. Patient did develop a fever during hospitalization. Blood cultures x2 and sputum culture were negative. Successfully extubated on 05/15/2023. Had a few episodes of atrial fibrillation with RVR requiring amiodarone infusion. Will demonstrated EF of 60 to 65%, mildLVH and trace tricuspid regurgitation. Developed transient bradycardia which have resolved. Cardiology was consulted to assist with A-fib/RVR management. Recommended continuing amiodarone for the next 6 weeks or until resolution of myasthenic crisis. On rehab admission patient is alert, oriented, answering questions appropriately. Voices no specific complaints. Generalized weakness seems to beimproving although still has difficult time moving lower extremities. No other neurologic or cardiopulmonary complaints. Respiratory status is back at baseline. Per patient report, prior to most recent admission he was fully independent and ambulatory without assistive device. He lives with who will be able to assist with ADLs if needed. PMFSH <Antonia Grier APRN - Last Filed: 05/22/23 11:48> Medical History Acute exacerbation of myasthenia gravis Bladder cancer Congenital myasthenia gravis HTN (hypertension) Pulmonary emboli Family History Other Hypertension Social History Smoking Status: Never smoker Substance Use Type: None Substance Abuse Comment: little etoh Review of Systems <Antonia Grier APRN - Last Filed: 05/22/23 11:48> Review of Systems All other systems reviewed & are negative unless noted below or in HPI Meds <Antonia Grier APRN - Last Filed: 05/22/23 11:48> Medications and Allergies Allergies No Known Allergies Allergy (Verified 12/27/17 16:51) Home and Active Meds: Home Medications hydralazine 50 mg tablet 50 mg PO BID 12/27/17 [History Confirmed 05/21/23] lisinopril 20 mg tablet 20 mg PO DAILY 12/27/17 [History Confirmed 05/21/23] loratadine 10 mg tablet (Allergy Relief (loratadine)) 10 mg PO DAILY 12/27/17 [History Confirmed 05/21/23] oiimbrco-bqz-kdigd acid 0.4 mg-lycopene 300 mcg-lutein 250 mcg tablet (Adults 50Plus) 1 tab PO DAILY 12/27/17 [History Confirmed 05/21/23] omega-3 fatty acids-fish oil 360 mg-1,200 mg capsule (Fish Oil) 1 cap PO BID 12/27/17 [History Confirmed 05/21/23] prednisone 10 mg tablet 10 mg PO DAILY 12/27/17 [History Confirmed 05/21/23] pyridostigmine bromide 60 mg tablet 1 tab PO QID 12/27/17 [History Confirmed 05/21/23] simvastatin 40 mg tablet 40 mg PO HS 12/27/17 [History Confirmed 05/21/23] triamterene 37.5 mg-hydrochlorothiazide 25 mg tablet (Maxzide-25mg) 1 tab PO DAILY 12/27/17 [History Confirmed 05/21/23] apixaban 5 mg (74 tabs) tablets in a dose pack 5 mg PO Q12H 05/10/23 [History Confirmed 05/21/23] furosemide 20 mg tablet 20 mg PO DAILY 05/10/23 [History Confirmed 05/21/23] nebivolol 10 mg tablet 10 mg PO DAILY 05/10/23 [History Confirmed 05/21/23] potassium chloride 10 mEq tablet,extended release(part/cryst) 10 meq PO DAILY 05/10/23 [History Confirmed 05/21/23] amiodarone 200 mg tablet 200 mg PO QAM 30 days #30 tabs 05/19/23 [Rx Confirmed 05/21/23] Active Medications Acetaminophen (Acetaminophen 500 Mg Tablet) 500 mg PO Q4H PRN PRN Reason: Pain Stop: 05/20/24 14:24 Al Hydrox/Mg Hydrox/Simethicone (Mag Hydrox/Al Hydrox/Simeth 30 Ml Udc) 30 ml PO Q4H PRN PRN Reason: Indigestion Stop: 05/20/24 14:24 Amiodarone HCl (Amiodarone 200 Mg Tablet) 200 mg PO QAM DORI Stop: 05/21/24 08:59 Last Admin: 05/22/23 08:57 Dose: 200 mg Apixaban (Apixaban 5 Mg Tablet) 5 mg PO Q12H DORI Stop: 05/20/24 17:29 Last Admin: 05/22/23 04:59 Dose: 5 mg Atorvastatin Calcium (Atorvastatin 20 Mg Tablet) 20 mg PO HS DORI Stop: 05/20/24 21:59 Last Admin: 05/21/23 21:57 Dose: 20 mg Bisacodyl (Bisacodyl 10 Mg Supp.Rect) 10 mg DE DAILY PRN PRN Reason: Constipation Stop: 05/20/24 14:24 Docusate Sodium (Docusate 100 Mg Capsule) 100 mg PO BID PRN PRN Reason: Constipation Stop: 05/20/24 14:24 Docusate Sodium (Docusate Enema 283 Mg/5 Ml Enema) 283 mg DE DAILY PRN PRN Reason: Constipation Stop: 05/20/24 14:24 Fish Oil ([place]-3/Fish Oil 1,000 Mg Capsule) 1,000 mg PO BID DORI Stop: 05/20/24 20:59 Last Admin: 05/22/23 08:58 Dose: 1,000 mg Furosemide (Furosemide 20 Mg Tablet) 20 mg PO DAILY DORI Stop: 05/21/24 08:59 Last Admin: 05/22/23 08:58 Dose: 20 mg Hydralazine HCl (Hydralazine 50 Mg Tablet) 50 mg PO BID DORI Stop: 05/20/24 20:59 Last Admin: 05/22/23 08:57 Dose: 50 mg Lactulose (Lactulose 20 Gm/30 Ml Udc) 30 gm PO DAILY PRN PRN Reason: Constipation Stop: 05/20/24 14:24 Lisinopril (Lisinopril 20 Mg Tablet) 20 mg PO DAILY DORI Stop: 05/21/24 08:59 Last Admin: 05/22/23 08:57 Dose: 20 mg Loperamide HCl (Loperamide Liquid 2 Mg/15 Ml Udc) 2 mg PO Q2H PRN PRN Reason: Loose Stool Stop: 05/20/24 21:09 Last Admin: 05/22/23 00:42 Dose: 2 mg Loratadine (Loratadine 10 Mg Tablet) 10 mg PO DAILY DORI Stop: 05/21/24 08:59 Last Admin: 05/22/23 08:57 Dose: 10 mg Nebivolol (Nebivolol 5 Mg Tablet) 10 mg PO DAILY DORI Stop: 05/21/24 08:59 Last Admin: 05/22/23 08:57 Dose: 10 mg Nystatin (Nystatin 100,000 Unit/Gram Powder 15 Gm Bottle) 1 applic TOPICAL TID DORI Stop: 05/21/24 08:59 Potassium Chloride (Potassium Chloride Liquid 20 Meq/15 Ml Udc) 10 meq PO DAILYSCH Stop: 05/21/24 08:59 Last Admin: 05/22/23 08:59 Dose: 10 meq Prednisone (Prednisone 10 Mg Tablet) 10 mg PO DAILY DORI Stop: 05/21/24 08:59 Last Admin: 05/22/23 08:58 Dose: 10 mg Pyridostigmine [place] (Pyridostigmine [place] 60 Mg Tablet) 60 mg PO QID DORI Stop: 05/20/24 17:59 Last Admin: 05/22/23 08:57 Dose: 60 mg Sennosides (Sennosides 8.6 Mg Tablet) 2 tab PO DAILY@12 PRN PRN Reason: If no BM in 2 days Stop: 05/21/24 11:59 Triamterene/Hydrochlorothiazide (Triamterene/Hctz 37.5-25mg 1 Tab Tablet) 1 tabPO DAILY DORI Stop: 05/21/24 08:59 Last Admin: 05/22/23 08:57 Dose: 1 tab Exam <Antonia Grier APRN - Last Filed: 05/22/23 11:48> Physical Exam Vital Signs: Temp Pulse Resp BP Pulse Ox O2 Del Method O2 Flow Rate 98.1 F 64 20 132/69 92 L Room Air 2 05/22/23 04:55 05/22/23 04:55 05/22/23 04:55 05/22/23 04:55 05/22/23 04:55 05/22/23 04:55 05/21/23 22:00 Narrative: General: Awake, alert, oriented x3 HENT: Normal to inspection, normocephalic, atraumatic Eyes: PERRL, normal conjunctiva and sclera Neck: Normal ROM, normal visual inspection. Trachea midline. Cardio: Irregular heart rate then rhythm Respiratory: Clear to auscultation bilaterally. Normal respiratory effort. No respiratory distress. GI: Abdomen obese, soft, nontender, nondistended, active bowel sounds x4 quadrants Neuro: CN II-XII intact. Strength 5/5, equal bilaterally Extremities: No edema, erythema, cyanosis. Upper extremity strength 4+/5, lowerextremity strength 1+/5. Psych: Mood and affect appropriate. Normal speech. Results <Antonia Grier APRN - Last Filed: 05/22/23 11:48> Labs Labs: Laboratory Results - last 24 hr 05/22/23 05/22/23 08:23 08:23 Corrected WBC 7.3 Uncorrected WBC Count 7.3 RBC 4.42 Hgb 12.4 L Hct 38.0 L MCV 86.0 MCH 28.0 MCHC 32.5 RDW 18.1 H Plt Count 153 MPV 8.4 Neut % (Auto) 63.1 Lymph % (Auto) 20.4 Turner % (Auto) 10.8 Eos % (Auto) 5.4 Baso % (Auto) 0.3 Nucleat RBC Rel Count 0.1 Neut # (Auto) 4.6 Lymph # (Auto) 1.5 Turner # (Auto) 0.8 Eos # (Auto) 0.4 Baso # (Auto) 0.0 PHA Creatinine Clear 100.28 Sodium 141 Potassium 3.7 Chloride 106 Carbon Dioxide 30.8 Anion Gap 7.9 BUN 19 Creatinine 0.83 Est GFR (CKD-EPI) > 60.0 Glucose 92 Calcium 8.1 L Total Bilirubin 0.6 AST 34 ALT 30 Alkaline Phosphatase 69 Total Protein 7.2 Albumin 2.5 L Globulin 4.7 Albumin/Globulin Ratio 0.5 Prealbumin 11.9 L <Silvestre Grover MD - Last Filed: 05/22/23 15:50> Individualized Plan of Care Plan of Care: Individualized Overall Plan of Care: Admit Date/Time: 05/21/2023 Expected LOS: 3 weeks Expected Discharge Destination: Home Rehabilitation IGC: 03.8 Primary Diagnosis: Myasthenic crisis To have patient become more independent and to return home. Medical/ Functional Prognosis: Good Anticipated Functional Outcomes/Goals and Interventions: 1.Therapy Functional Outcome/Goal: Anticipate min assist bed mobility Anticipated interventions: Physician management, PT, OT, BRIDGE IRONWORKER HELPER, , Dietitian, RehabNursing, Case management 2. Therapy Functional Outcome/Goal: Anticipate standby assist transfers Anticipated interventions: Physician management, PT, OT, BRIDGE IRONWORKER HELPER, Case management, Dietitian, Rehab Nursing 3. Therapy Functional Outcome/Goal: Anticipate min assist ambulation Anticipated interventions: Physician management, PT, OT, BRIDGE IRONWORKER HELPER Case management, Dietitian, Rehab Nursing 4.Therapy Functional Outcome/Goal: Anticipate min assist self-care Anticipated interventions: Physician management, PT, OT, BRIDGE IRONWORKER HELPER, Case management, Dietitian, Rehab Nursing 5.Therapy Functional Outcome/Goal: Anticipate min assist swallowing. Anticipated interventions: Physician management, PT, OT, BRIDGE IRONWORKER HELPER, Case management, Dietitian, Rehab Nursing Required Therapy PT: 1 hour per day at least 5 days per week with additional therapy on as neededbasis. Comments: PT to improve pt's strength, endurance, bed mobility, transfers (sit-stand), standing balance, gait quality on level surfaces and stairs, coordination and functional ADL skills. Will also work to improve pt's safety awareness during transfers and ambulation. OT: 1 hour per day at least 5 days per week with additional therapy on as neededbasis. Comments: OT for basic ADL re-training (bathing, dressing, toileting, continence, grooming, feeding, transferring), to increase activity tolerance andfunctional mobility and to evaluate for adaptive and assistive devices. Will work to improve pt's endurance and educate pt on fall prevention and energy conservation techniques-pacing strategies and proper breathing techniques duringfunctional tasks. Speech/Language - 1 hour per day at least 5 days per week with additional therapy on as needed basis. Comments: BRIDGE IRONWORKER HELPER to evaluate and treat patient?s cognition, language and communication skills, assess swallow function. Other: Dietitian, Rehab nursing, Wound, P&O, Neuropsychology as needed RATIONALE FOR IRF ADMISSION: Patient has both medical and functional complexities that require 24 hour daily monitoring and intervention from Underwear Hemmer as well as other consulting physicians including internal medicine as well as 24 hour daily hand fretted instrument maker nursing - for medical safe / optimal management. Patient requires interdisciplinary therapy team rehabilitation care including OT, PT, BRIDGE IRONWORKER HELPER, SW, Psychology, Rehab Nursing, requires and can tolerate at least 3hours of daily OT and PT therapy at least 5 days weekly. The following medical conditions significantly impact the rehabilitation process and are being addressed daily and can not be managed at home or in a lesser intense medical setting: Refer to above problem oriented plan of care Assessment/Plan <Antonia Grier APRN - Last Filed: 05/22/23 11:48> (1) Atrial fibrillation: Code(s): I48.91 - Unspecified atrial fibrillation Status: Acute (2) Morbid obesity with BMI of 50.0-59.9, adult: Code(s): E66.01 - Morbid (severe) obesity due to excess calories; Z68.43 - Status: Acute (3) Impaired mobility and activities of daily living: Code(s): Z74.09 - ; Z78.9 - Status: Acute (4) Myasthenia gravis: Code(s): G70.00 - Myasthenia gravis without (acute) exacerbation Status: Acute (5) Myasthenia gravis in crisis: Code(s): G70.01 - Myasthenia gravis with (acute) exacerbation Status: Acute (6) Pulmonary emboli: Code(s): I26.99 - Other pulmonary embolism without acute cor pulmonale Status: Acute (7) Hypertension: Code(s): I10 - Essential (primary) hypertension Status: Acute (8) Hyperlipidemia: Code(s): E78.5 - Hyperlipidemia, unspecified Status: Acute (9) Oropharyngeal dysphagia: Code(s): R13.12 - Dysphagia, oropharyngeal phase Status: Acute Plan 77-year-old male presenting to acute rehab with functional impairments secondaryto myasthenic crisis. [facility]. Had to be intubated for airway protection. Successfully extubated on 05/15 and has been tolerating well. * Generalized weakness seems to be improving. He is able to move upper and lower extremities, although BLE are still significantly weak. Continue to monitor neurological symptoms closely. Consult neurology if new or worsening symptoms. * Recent labs and vitals reviewed, stable. * Continue Eliquis twice daily for A-fib per home regimen. Maintain amiodarone per cardiology recommendations x6 weeks. Obtain an EKG if tachycardic. Patient education Pressure ulcer prophylaxis; encourage mobilization, frequent postural changes, pressure-relief techniques DVT prophylaxis: Continue Eliquis. Encourage deep breathing exercise incentive spirometry. Monitor bladder. Toileting schedule. Continue current bladder management, with scans as needed and CIC if needed. Start bowel care program every day to obtain continence, prevent ileus. Maintain fall precautions Gait and balance retraining Functional training and self-care and home management, including activities of daily living and instrumental activities of daily living Provision of the necessary gait aids and functional adaptive equipment to enhance the patient's a functional holiness Ensure adequate nutrition and hydration Sleep: No concerns. Pain: Continue current regimen Discharge planning: Hopefully home with his in 10 to 14 days. I spent greater than 45 minutes for services, including [id number] encounter with the patient, discussion of the case, plan of care, and exam; and [id number] activities, such as reviewing pertinent behavioral health consultant documentation, recent therapy notes, laboratory and radiology studies, and discussion of case with care team including physician, nursing, shelter case manager, and therapists. More than 50 % of time was spent on patient/family counseling or coordination ofcare. <Silvestre Grover MD - Last Filed: 05/22/23 15:50> (1) Atrial fibrillation: (2) Morbid obesity with BMI of 50.0-59.9, adult: (3) Impaired mobility and activities of daily living: (4) Myasthenia gravis: (5) Myasthenia gravis in crisis: (6) Pulmonary emboli: (7) Hypertension: (8) Hyperlipidemia: (9) Oropharyngeal dysphagia: Plan: I completed a substantive portion of this encounter, the medical decision makingportion of this note in its entirety, including Allied health note review, nursing note review, behavioral health consultant note review, discussion with nursing and case management, and more than 50% of my time was spent on counseling and coordination of care, time spent 70 minutes Patient was personally seen by me, Dr. Grover, on the day of encounter, reviewed the history and the relevant portions of the chart, including current orders, allied health and behavioral health consultant notes, labs/imaging and performed garcia elements of exam and I formulated the plan of care and facilitated the medical decision making. Documented By: Antonia Grier APRN 05/22/23 1 040 Signed By: <Electronically signed by ZACH Grier> 05/22/23 1148 <Electronically signed by Silvestre Grover MD> 05/22/23 1550 [facility] Work Phone: 1(508) 758-716509-30-2023 Progress note Author Suraj Rzao [facility] May 20, 2023 8:14am Note Date/Time May 20, 2023 8:10am [facility] [address] [place] [address] Hospitalist Progress Note Signed Patient: Taurus Garcia MR#: [id number] : 1945 Acct:[id number] Age/Sex: 77 / M Adm Date: 3 Loc: Room: [address] [place] [address] Type: ADM IN Attending Dr: Suraj Razo MD Copies to: ~ Date of Service: 05/20/2023 Subjective Subjective Narrative: Assessment And Plan 77M with PMH of HTN, HLD, Myasthenia Gravis (Dx 2017), CKD, PE(On Eliquis) who was admitted to [facility] 05/09 for generalized weakness. He was intubated there then transferred for the evaluation and treatment of suspected acute myasthenia gravis exacerbation. Acute Respiratory Failure due to Myasthenia gravis exacerbation Seen and examined s/p extubation Clinically stable On nasal cannula 2 L of oxygen Saturation is 95% On sinus rhythm Albuterol Neb PRN PT/OT Plan to dc to acute rehab Myasthenia gravis exacerbation Completed IVIG Continue with prednisone orally Continue with pyridostigmine Pulmonary embolism: On Eliquis p.o. twice daily Drug induced Hypotension Resolved Drug induced Sinus Bradycardia Resolved Afib with RVR On sinus rhythm Switched to Amiodarone PO Eliquis pO daily HTN: Increase Lisinopril to 40 mg daily Discussed with his at bedside' Discussed with nursing staff DC planning: Acute rehab Exam Physical Exam Vital Signs: Temp Pulse Resp BP Pulse Ox O2 Del Method O2 Flow Rate 98.2 F 60 16 185/77 H 95 CPAP 2 05/20/23 04:00 05/20/23 04:00 05/20/23 04:00 05/20/23 04:00 05/20/23 04:00 05/20/23 04:00 05/19/23 16:00 FiO2 4 05/15/23 18:00 Narrative: General patient laying in bed in no acute distress alert awake oriented x3 HEENT PERRLA Neck supple no JVD no carotid bruit CVS S1-S2 regular rate and rhythm no murmur no gallop Chest clear to auscultation percussion Abdomen soft bowel sounds normoactive no rebound no guarding Extremities no stenosis no clubbing no edema Musculoskeletal exam normal no joint effusion Neurologic exam oriented x3 alert awake no focal left Psychiatry: Normal insight and judgment Objective Lab Results 05/20/23 04:25 05/20/23 04:25 Microbiology Results Microbiology 05/16/23 10:04 Blood - Left Hand Blood Culture - Preliminary No Growth 3 Days 05/16/23 12:00 Blood - Right Hand Blood Culture - Preliminary Presumptive Coag Neg. Staph 05/16/23 12:00 Blood - Right Hand Bacterial ID (NA Multiplex Assay) - Final Meds Allergies and Active Meds Allergies No Known Allergies Allergy (Verified 12/27/17 16:51) Active Meds: Active Medications Generic Name Dose Route Start Last Admin Trade Name Jana PRN Reason Stop Dose Admin Acetaminophen 650 mg 05/11/23 01:00 05/16/23 09:25 Acetaminophen 325 Mg Tablet PO 05/10/24 00:59 650 mg Q6HR PRN Administration Pain Scale 1 - 3 or fever Albuterol 2.5 mg 05/15/23 15:57 Albuterol Neb 2.5 Mg/3 Ml Vial.Neb INHALATION 05/14/24 15:56 Q3H PRN Shortness Of Breath Amiodarone HCl 200 mg 05/19/23 09:00 05/19/23 11:24 Amiodarone 200 Mg Tablet PO 05/18/24 08:59 200 mg QAM DORI Administration Apixaban 5 mg 05/11/23 09:00 05/19/23 21:30 Apixaban 5 Mg Tablet PO 05/10/24 08:59 5 mg BID DORI Administration Atorvastatin Calcium 20 mg 05/11/23 22:00 05/19/23 21:29 Atorvastatin 20 Mg Tablet PO 05/10/24 21:59 20 mg HS DORI Administration Dextrose 0 gm 05/11/23 09:43 Dextrose 50% In Water 25 Gm/50 Ml Syringe IV-PUSH 05/10/24 09:42 PRN PRN Hypoglycemia Furosemide 20 mg 05/11/23 11:45 05/19/23 08:28 Furosemide 20 Mg Tablet PO 05/10/24 11:44 20 mg DAILY DORI Administration Hydralazine HCl 50 mg 05/11/23 11:45 05/19/23 21:30 Hydralazine 50 Mg Tablet PO 05/10/24 11:44 50 mg BID DORI Administration Lisinopril 20 mg 05/11/23 11:45 05/19/23 08:28 Lisinopril 20 Mg Tablet PO 05/10/24 11:44 20 mg DAILY DORI Administration Loratadine 10 mg 05/12/23 09:00 05/19/23 08:28 Loratadine 10 Mg Tablet PO 05/11/24 08:59 10 mg DAILY DORI Administration Nebivolol 10 mg 05/11/23 11:45 05/19/23 08:27 Nebivolol 5 Mg Tablet PO 05/10/24 11:44 10 mg DAILY DORI Administration Prednisone 10 mg 05/17/23 09:00 05/19/23 08:28 Prednisone 10 Mg Tablet PO 05/16/24 08:59 10 mg DAILY DORI Administration Pyridostigmine [place] 60 mg 05/18/23 14:00 05/19/23 21:30 Pyridostigmine [place] 60 Mg Tablet PO 05/17/24 13:59 60 mg QID DORI Administration A&P - Hospitalist Assessment/Plan (1) Acute exacerbation of myasthenia gravis: (2) Acute respiratory failure with hypoxia: (3) CKD (chronic kidney disease) stage 3, GFR 30-59 ml/min: Plan . Documented By: Suraj Razo MD 05/20/23808 Signed By: <Electronically signed by Suraj Razo MD> 05/20/23813 [facility] Work Phone: 1(999) 925-695809-29-2023 Progress note Author Suraj Razo [facility] May 19, 2023 1:42pm Note Date/Time May 19, 2023 1:42pm [facility] [address] [place] [address] Hospitalist Progress Note Signed Patient: Taurus Garcia MR#: [id number] : 1945 Acct:[id number] Age/Sex: 77 / M Adm Date: 3 Loc: Room: [address] [place] [address] Type: ADM IN Attending Dr: Suraj Razo MD Copies to: ~ Date of Service: 05/19/2023 Subjective Subjective Narrative: Assessment And Plan 77M with PMH of HTN, HLD, Myasthenia Gravis (Dx 2016), CKD, PE(On Eliquis) who was admitted to [facility] 05/09 for generalized weakness. He was intubated there then transferred for the evaluation and treatment of suspected acute myasthenia gravis exacerbation. Acute Respiratory Failure due to Myasthenia gravis exacerbation Seen and examined s/p extubation Clinically better On nasal cannula 2 L of oxygen Has diarrhea Less Edema On sinus rhythm Off Amiodarone infusion Switched to amiodarone PO Now on sinus rhythm PT/OT Imodium PO PRN Myasthenia gravis exacerbation Completed IVIG Continue with prednisone orally Continue with pyridostigmine Pulmonary embolism: On Eliquis p.o. twice daily Drug induced Hypotension Resolved Drug induced Sinus Bradycardia Resolved Afib with RVR On sinus rhythm Switched to Amiodarone PO Discussed with his at bedside' Discussed with nursing staff DC planning: Acute rehab Exam Physical Exam Vital Signs: Temp Pulse Resp BP Pulse Ox O2 Del Method O2 Flow Rate 98.0 F 58 L 17 149/68 H 96 Nasal Cannula 2 05/19/23 12:00 05/19/23 12:00 05/19/23 12:00 05/19/23 12:00 05/19/23 12:00 05/19/23 12:00 05/19/23 12:00 FiO2 4 05/15/23 18:00 Narrative: General patient laying in bed in no acute distress alert awake oriented x3 HEENT PERRLA Neck supple no JVD no carotid bruit CVS S1-S2 regular rate and rhythm no murmur no gallop Chest clear to auscultation percussion Abdomen soft bowel sounds normoactive no rebound no guarding Extremities no stenosis no clubbing no edema Musculoskeletal exam normal no joint effusion Neurologic exam oriented x3 alert awake no focal left Psychiatry: Normal insight and judgment Objective Lab Results 05/19/23 04:24 05/19/23 04:24 Microbiology Results Microbiology 05/16/23 10:04 Blood - Left Hand Blood Culture - Preliminary No Growth 3 Days 05/16/23 12:00 Blood - Right Hand Blood Culture - Preliminary Presumptive Coag Neg. Staph 05/16/23 12:00 Blood - Right Hand Bacterial ID (NA Multiplex Assay) - Final Meds Allergies and Active Meds Allergies No Known Allergies Allergy (Verified 12/27/17 16:51) Active Meds: Active Medications Generic Name Dose Route Start Last Admin Trade Name Lenoq PRN Reason Stop Dose Admin Acetaminophen 650 mg 05/11/23 01:00 05/16/23 09:25 Acetaminophen 325 Mg Tablet PO 05/10/24 00:59 650 mg Q6HR PRN Administration Pain Scale 1 - 3 or fever Albuterol 2.5 mg 05/15/23 15:57 Albuterol Neb 2.5 Mg/3 Ml Vial.Neb INHALATION 05/14/24 15:56 Q3H PRN Shortness Of Breath Amiodarone HCl 200 mg 05/19/23 09:00 05/19/23 11:24 Amiodarone 200 Mg Tablet PO 05/18/24 08:59 200 mg QAM DORI Administration Apixaban 5 mg 05/11/23 09:00 05/19/23 08:28 Apixaban 5 Mg Tablet PO 05/10/24 08:59 5 mg BID DORI Administration Atorvastatin Calcium 20 mg 05/11/23 22:00 05/18/23 21:21 Atorvastatin 20 Mg Tablet PO 05/10/24 21:59 20 mg HS DORI Administration Dextrose 0 gm 05/11/23 09:43 Dextrose 50% In Water 25 Gm/50 Ml Syringe IV-PUSH 05/10/24 09:42 PRN PRN Hypoglycemia Furosemide 20 mg 05/11/23 11:45 05/19/23 08:28 Furosemide 20 Mg Tablet PO 05/10/24 11:44 20 mg DAILY DORI Administration Hydralazine HCl 50 mg 05/11/23 11:45 05/19/23 08:28 Hydralazine 50 Mg Tablet PO 05/10/24 11:44 50 mg BID DORI Administration Lisinopril 20 mg 05/11/23 11:45 05/19/23 08:28 Lisinopril 20 Mg Tablet PO 05/10/24 11:44 20 mg DAILY DORI Administration Loratadine 10 mg 05/12/23 09:00 05/19/23 08:28 Loratadine 10 Mg Tablet PO 05/11/24 08:59 10 mg DAILY DORI Administration Nebivolol 10 mg 05/11/23 11:45 05/19/23 08:27 Nebivolol 5 Mg Tablet PO 05/10/24 11:44 10 mg DAILY DORI Administration Prednisone 10 mg 05/17/23 09:00 05/19/23 08:28 Prednisone 10 Mg Tablet PO 05/16/24 08:59 10 mg DAILY DORI Administration Pyridostigmine [place] 60 mg 05/18/23 14:00 05/19/23 08:28 Pyridostigmine [place] 60 Mg Tablet PO 05/17/24 13:59 60 mg QID DORI Administration A&P - Hospitalist Assessment/Plan (1) Acute exacerbation of myasthenia gravis: (2) Acute respiratory failure with hypoxia: (3) CKD (chronic kidney disease) stage 3, GFR 30-59 ml/min: Plan . Documented By: Suraj Razo MD 05/19/23 134 Signed By: <Electronically signed by Suraj Razo MD> 05/19/23 1342 [facility] Work Phone: 1(181) 271-280809-29-2023 Progress note Author Stanley Burt [facility] May 19, 2023 11:15am Note Date/Time May 19, 2023 8:43am [facility] [address] [place] [address] Pulmonology Progress Note Signed Patient: Taurus Garcia MR#: [id number] : 1945 Acct:[id number] Age/Sex: 77 / M Adm Date: 3 Loc: Room: [address] [place] [address] Type: ADM IN Attending Dr: Suraj Razo MD Copies to: ~ Date of Service: 05/19/2023 Subjective Subjective Narrative: Patient continues to improve and appears to be more awake, alert, and conversant. Case was discussed with patient and spouse who is at bedside. Exam Physical Exam Vital Signs: Temp Pulse Resp BP Pulse Ox O2 Del Method O2 Flow Rate 97.8 F 54 L 16 136/63 94 L Nasal Cannula 2 05/19/23 04:00 05/19/23 06:00 05/19/23 06:00 05/19/23 06:00 05/19/23 06:00 05/19/23 08:00 05/19/23 08:00 FiO2 4 05/15/23 18:00 Const General: cooperative Orientation: alert and awake HEENT Head: normal to inspection Ears: hearing grossly normal bilaterally and external ears normal Nose: external nose normal Face and sinus: normal facial exam Eyes Eyelids: eyelids normal Sclera: sclerae normal Neck Neck: normal visual inspection Resp Effort & Inspection: normal respiratory effort Auscultation: clear to auscultation bilaterally, diminished lung sounds, no rales, no rhonchi and no wheezes Cardio Heart Sounds: S1 normal, S2 normal and no murmurs GI Inspection: normal to inspection Palpation: soft and nontender General: deferred Skin General: no rashes or lesions noted (Warm and dry) Extrem General: edema Laterality: bilaterally (nonpitting) Objective Intake and Output I&O - Last 24 Hours: Intake & Output 05/18/23 05/19/23 05/19/23 23:59 07:59 15:59 Intake Total 240 / 950 250 / 250 Output Total 750 / 2825 400 / 400 Balance -510 / -1875 -150 / -150 Weight 143.1 kg Labs 05/19/23 04:24 05/19/23 04:24 Microbiology Micro: Microbiology 05/16/23 12:00 Blood Culture - Preliminary Blood - Right Hand Presumptive Coag Neg. Staph Bacterial ID (NA Multiplex Assay) - Final 05/16/23 10:04 Blood Culture - Preliminary Blood - Left Hand No Growth 2 Days 05/16/23 10:32 Urine Culture - Final Urine, Harrell No Growth 2 Days Assessment/Plan Assessment/Plan (1) Acute respiratory failure with hypoxia: (2) Myasthenic crisis: (3) CKD (chronic kidney disease) stage 3, GFR 30-59 ml/min: (4) Obstructive sleep apnea: Plan Hospital day #9 for patient with myasthenia gravis flare extubated after receiving 5 days of IVIG as well as steroid burst and continuing on Mestinon. Patient remains on amiodarone drip and it is the opinion of cardiology that the patient may require short-term amiodarone. After communicating with Dr. Hoover, we will discontinue amiodarone drip and start patient on oral amiodarone 200 mg daily. Patient should continue to work with Physical Therapy and Occupational Therapy. Patient is stable for discharge from a pulmonary/critical care medicine perspective and clearly would benefit from rehabilitation. Documented By: Stanley Burt MD 3 0843 Signed By: <Electronically signed by MD Stanley Burt> 05/19/23 3588 [facility] Work Phone: 1(496) 237-363109-29-2023 Progress note Author Silvestre Grover [facility] May 19, 2023 10:51am Note Date/Time May 19, 2023 10:03am [facility] [address] [place] [address] Physiatry(Rehab) Progress Note Signed Patient: Taurus Garcia MR#: [id number] : 1945 Acct:[id number] Age/Sex: 77 / M Adm Date: 3 Loc: Room: 9S1321-5 Type: ADM IN Attending Dr: Suraj Razo MD Copies to: ~ Date of Service: 05/19/2023 Subjective Subjective Narrative: Mr. Garcia is a 77 year old male hospital day #6 for myasthenic crisis, intubated on admission, just extubated 05/15, being evaluated for possible IRF placement when ready. His reports that he is premorbidly independent. She denies him ever havinga myasthenic crisis like this before. She states he was in his usual state of health until he began to feel generally weak, he presented to [facility] and was subsequently intubated and transferred to the ICU here. With regards to myasthenia crisis-prednisone being decreased to home dose, pyridostigmine continued at present at lower dose. S/p 5 days of IVIG. Interval History: Chart reviewed, stable and improving. Afebrile. Stared on oral amiodarone per Cardiology. Working with PT/OT. Able to sit edge of bed with assist, can lift right arm to mouth. Review of Systems Review of Systems All other systems reviewed & are negative unless noted below or in HPI Exam Physical Exam Vital Signs: Temp Pulse Resp BP Pulse Ox O2 Del Method O2 Flow Rate 97.8 F 54 L 16 136/63 94 L Nasal Cannula 2 05/19/23 04:00 05/19/23 06:00 05/19/23 06:00 05/19/23 06:00 05/19/23 06:00 05/19/23 08:00 05/19/23 08:00 FiO2 4 05/15/23 18:00 Narrative: Awake and alert. Tolerating sitting edge of bed. Non-labored breathing with nasal cannula in place RRR Abdomen soft B/l lower extremities 2-3/5, weaker proximally. RUE 3/5, LUE 2/5. Impaired sensation Reflexes present 2-3+ edema b/l. Objective Labs 05/19/23 04:24 05/19/23 04:24 Labs: Laboratory Results - last 24 hr 05/19/23 05/19/23 04:24 04:24 Corrected WBC 5.1 Uncorrected WBC Count 5.1 RBC 4.37 Hgb 12.2 L Hct 37.3 L MCV 85.2 MCH 27.9 MCHC 32.8 RDW 18.4 H Plt Count 125 L MPV 8.4 Neut % (Auto) 53.7 Lymph % (Auto) 22.1 Turner % (Auto) 10.0 Eos % (Auto) 13.8 Baso % (Auto) 0.4 Nucleat RBC Rel Count 0.2 Neut # (Auto) 2.7 Lymph # (Auto) 1.1 Turner # (Auto) 0.5 Eos # (Auto) 0.7 H Baso # (Auto) 0.0 PHA Creatinine Clear 79.67 Sodium 144 Potassium 3.5 Chloride 105 Carbon Dioxide 36.0 H Anion Gap 6.5 BUN 32 H Creatinine 1.11 Est GFR (CKD-EPI) > 60.0 Glucose 103 H Calcium 8.1 L Magnesium 2.0 Medications and Allergies Allergies and Active Meds: Allergies No Known Allergies Allergy (Verified 12/27/17 16:51) Active Medications Generic Name Dose Route Start Last Admin Trade Name Freq PRN Reason Stop Dose Admin Acetaminophen 650 mg 05/11/23 01:00 05/16/23 09:25 Acetaminophen 325 Mg Tablet PO 05/10/24 00:59 650 mg Q6HR PRN Administration Pain Scale 1 - 3 or fever Albuterol 2.5 mg 05/15/23 15:57 Albuterol Neb 2.5 Mg/3 Ml Vial.Neb INHALATION 05/14/24 15:56 Q3H PRN Shortness Of Breath Amiodarone HCl 200 mg 05/19/23 09:00 Amiodarone 200 Mg Tablet PO 05/18/24 08:59 QAM DORI Apixaban 5 mg 05/11/23 09:00 05/19/23 08:28 Apixaban 5 Mg Tablet PO 05/10/24 08:59 5 mg BID DORI Administration Atorvastatin Calcium 20 mg 05/11/23 22:00 05/18/23 21:21 Atorvastatin 20 Mg Tablet PO 05/10/24 21:59 20 mg HS DORI Administration Dextrose 0 gm 05/11/23 09:43 Dextrose 50% In Water 25 Gm/50 Ml Syringe IV-PUSH 05/10/24 09:42 PRN PRN Hypoglycemia Furosemide 20 mg 05/11/23 11:45 05/19/23 08:28 Furosemide 20 Mg Tablet PO 05/10/24 11:44 20 mg DAILY DORI Administration Hydralazine HCl 50 mg 05/11/23 11:45 05/19/23 08:28 Hydralazine 50 Mg Tablet PO 05/10/24 11:44 50 mg BID DORI Administration Lisinopril 20 mg 05/11/23 11:45 05/19/23 08:28 Lisinopril 20 Mg Tablet PO 05/10/24 11:44 20 mg DAILY DORI Administration Loratadine 10 mg 05/12/23 09:00 05/19/23 08:28 Loratadine 10 Mg Tablet PO 05/11/24 08:59 10 mg DAILY DORI Administration Nebivolol 10 mg 05/11/23 11:45 05/19/23 08:27 Nebivolol 5 Mg Tablet PO 05/10/24 11:44 10 mg DAILY DORI Administration Prednisone 10 mg 05/17/23 09:00 05/19/23 08:28 Prednisone 10 Mg Tablet PO 05/16/24 08:59 10 mg DAILY DORI Administration Pyridostigmine [place] 60 mg 05/18/23 14:00 05/19/23 08:28 Pyridostigmine [place] 60 Mg Tablet PO 05/17/24 13:59 60 mg QID DORI Administration Assessment/Plan Assessment/Plan (1) Myasthenia gravis: Code(s): G70.00 - Myasthenia gravis without (acute) exacerbation Status: Acute (2) Hypertension: Code(s): I10 - Essential (primary) hypertension Status: Acute (3) Hyperlipidemia: Code(s): E78.5 - Hyperlipidemia, unspecified Status: Acute (4) Obstructive sleep apnea: Code(s): G47.33 - Obstructive sleep apnea (adult) (pediatric) Status: Acute (5) UTI (urinary tract infection) due to Enterococcus: Code(s): N39.0 - Urinary tract infection, site not specified; B95.2 - Enterococcus as thecause of diseases classified elsewhere Status: Acute (6) Acute exacerbation of myasthenia gravis: Code(s): G70.01 - Myasthenia gravis with (acute) exacerbation Status: Acute (7) CKD (chronic kidney disease) stage 3, GFR 30-59 ml/min: Code(s): N18.30 - Chronic kidney disease, stage 3 unspecified Status: Acute (8) Impaired mobility and activities of daily living: Code(s): Z74.09 - Other reduced mobility; Z78.9 - Other specified health status Status: Acute (9) Morbid obesity with BMI of 50.0-59.9, adult: Code(s): E66.01 - Morbid (severe) obesity due to excess calories; Z68.43 - Body mass index [BMI] 50.0-59.9, adult Status: Acute Plan 77 y/o male hospital day #6 for myasthenic crisis, intubated on admission to [facility], just extubated 05/15, being evaluated for possible IRF placement. -Stable and improving. -Tolerate sitting edge of bed, exam improving daily. -Highly motivated. -Appropriate for IRF, likely ready to be transferred this weekend/early next week-defer to primary. Plan: I completed a substantive portion of this encounter, the medical decision making portion of this note in its entirety, including Allied health note review, nursing note review, behavioral health consultant note review, discussion with nursing and case management, and more than 50% of my time was spent on counseling and coordination of care, time spent 30 minutes Patient was personally seen by me, Dr. Grover, on the day of encounter, reviewed the history and the relevant portions of the chart, including current orders, allied health and behavioral health consultant notes, labs/imaging and performed garcia elements of exam and I formulated the plan of care and facilitated the medical decision making. Documented By: Silvestre Grover MD 05/19/23 1003 Signed By: <Electronically signed by Silvestre Grover MD> 05/19/23 1051 [facility] Work Phone: [phone] 440-585609-28-2023 Consult note Author Pat Hoover [facility] May 18, 2023 6:00pm Note Date/Time May 18, 2023 6:00pm [facility] [address] [place] [address] Cardiology Consult Note Signed Patient: Taurus Garcia MR#: [id number] : 1945 Acct:[id number] Age/Sex: 77 / M Adm Date: 3 Loc: Room: [address] [place] [address] Type: ADM IN Attending Dr: Suraj Razo MD Copies to: MD Komal Cordoba II, MD W Scott Sheldon, DO~ Cardiology HPI History of Present Illness Consult Date: 05/18/23 Reason for Consult: Atrial fibrillation HPI: Mr. Garcia is a 77 year old male seen in cardiology consultation at the request of pulmonary/critical care after patient was admitted 7 days ago with acute exacerbation of myasthenia gravis, briefly intubated at outside facility. Patient has a history of morbid obesity, previous pulmonary emboli in 2018, treated conservatively with Eliquis. Cardiac catheterization in 2018 revealed normal coronary arteries and normal left ventricular function. He has had no previous history of atrial fibrillation that I am aware of. He usually follows with me for the past 3 years for his history of PE Comorbidities are otherwise noted for hypertension, hyperlipidemia, morbid obesity, myasthenia gravis, and presumably sleep apnea He is currently in sinus rhythm with PVCs currently on amiodarone drip Chest x-ray from 3 days ago reveals bilateral patchy infiltrates and probable right pleural effusion Impression/recommendations: I believe his acute medical illness/hypoxic respiratory failure and acute myasthenia crisis likely triggered atrial fibrillation. I am not sure if he warrants long-term amiodarone but at least would likely require it temporarily for the next 6 weeks until his acute illnessresolves Review of Systems Review of Systems All other systems reviewed & are negative unless noted below or in HPI Constitutional Constitutional: Reports as per HPI, Reports fatigue and Reports weakness Cardiovascular Cardiovascular: Denies chest pain, Denies chest pain at rest and Denies chest pain with activity Respiratory Respiratory: Reports as per HPI [facility] Medical History Acute exacerbation of myasthenia gravis Bladder cancer Congenital myasthenia gravis HTN (hypertension) Pulmonary emboli Family History Other Hypertension Social History Smoking Status: Never smoker Substance Use Type: Alcohol Substance Abuse Comment: little etoh Meds Medications and Allergies Allergies No Known Allergies Allergy (Verified 12/27/17 16:51) Home Medications hydralazine 50 mg tablet 50 mg PO BID 12/27/17 [History Confirmed 05/10/23] lisinopril 20 mg tablet 20 mg PO DAILY 12/27/17 [History Confirmed 05/10/23] loratadine 10 mg tablet (Allergy Relief (loratadine)) 10 mg PO DAILY 12/27/17 [History Confirmed 05/10/23] daooapxb-qbn-nsrsr acid 0.4 mg-lycopene 300 mcg-lutein 250 mcg tablet (Adults 50Plus) 1 tab PO DAILY 12/27/17 [History Confirmed 05/10/23] omega-3 fatty acids-fish oil 360 mg-1,200 mg capsule (Fish Oil) 1 cap PO BID 12/27/17 [History Confirmed 05/10/23] prednisone 10 mg tablet 10 mg PO DAILY 12/27/17 [History Confirmed 05/10/23] pyridostigmine bromide 60 mg tablet 1 tab PO QID 12/27/17 [History Confirmed 05/10/23] simvastatin 40 mg tablet 40 mg PO HS 12/27/17 [History Confirmed 05/10/23] triamterene 37.5 mg-hydrochlorothiazide 25 mg tablet (Maxzide-25mg) 1 tab PO DAILY 12/27/17 [History Confirmed 05/10/23] baclofen 10 mg tablet 1 tab PO Q8H 12/15/18 [History Confirmed 05/10/23] apixaban 5 mg (74 tabs) tablets in a dose pack 5 mg PO Q12H 05/10/23 [History Confirmed 05/10/23] furosemide 20 mg tablet 20 mg PO DAILY 05/10/23 [History Confirmed 05/10/23] nebivolol 10 mg tablet 10 mg PO DAILY 05/10/23 [History Confirmed 05/10/23] potassium chloride 10 mEq tablet,extended release(part/cryst) 10 meq PO DAILY 05/10/23 [History Confirmed 05/10/23] Exam Physical Exam Vital Signs: Temp Pulse Resp BP Pulse Ox O2 Del Method O2 Flow Rate 98.8 F 54 L 12 119/81 96 Nasal Cannula 2 05/18/23 12:00 05/18/23 17:00 05/18/23 17:00 05/18/23 17:00 05/18/23 17:00 05/18/23 17:00 05/18/23 17:00 FiO2 4 05/15/23 18:00 Const General: cooperative Nutritional Appearance: obese Orientation: awake and confused Limitations: altered mental status HEENT Head: normal to inspection Eyes General: appearance normal, both eyes and all related structures Neck Neck: normal visual inspection Chest Chest palpation & inspection: normal inspection of the chest Resp Effort & Inspection: normal respiratory effort Cardio Rate: regular rate Rhythm: regular rhythm Heart Sounds: S1 normal, S2 normal and no murmurs GI Inspection: obesity Palpation: soft Skin General: no rashes or lesions noted Neuro General: patient awake and patient confused Cognition: abnormal cognition Extrem General: no clubbing, cyanosis or edema Results Labs 05/18/23 04:16 05/17/23 04:19 Lab results: CBC 05/18/23 Range/Units 04:16 RBC 4.53 (3.90-5.60) X10E6/uL Hgb 12.7 L (13.0-17.0) g/dL Hct 38.5 L (38.8-50.0) % Plt Count 131 L (150-450) x10E3/uL Neut # (Auto) 2.3 (1.8-7.7) x10E3/uL Lymph # (Auto) 1.0 (1.00-4.8) x10E3/uL Turner # (Auto) 0.4 (0.0-0.8) x10E3/uL Eos # (Auto) 0.8 H (0.0-0.45) x10E3/uL Baso # (Auto) 0.0 (0.0-0.2) x10E3/uL Intake and Output 05/18/23 05/18/23 05/18/23 07:59 15:59 23:59 Intake Total 60 / 710 650 / 710 Output Total 475 / 2075 1600 / 2075 Balance -415 / -1365 -950 / -1365 Intake: IV 250 / 250 Amiodarone 450 mg In Dextrose 5 250 / 250 % in Water [place] 241 ml @ 0.5 MG/MIN 16.667 mls/hr IV .Q15H [facility] Rx#:[id number] Oral 60 / 460 400 / 460 Output: Urine Amount (Catheter) 2074 Urethral (Har[place]) 2074 Other: # Incontinent Bowel Movements 2 Weight 154.9 kg Date of Last Bowel Movement 05/17/23 Patient Weight 05/18/23 23:59 Weight 154.9 kg Lab 05/11/23 03:52 PT 17.1 H INR 1.4 A&P - Cardiology (1) Morbid obesity with BMI of 50.0-59.9, adult: Code(s): E66.01 - Morbid (severe) obesity due to excess calories; Z68.43 - Body mass index [BMI] 50.0-59.9, adult (2) Impaired mobility and activities of daily living: Code(s): Z74.09 - Other reduced mobility; Z78.9 - Other specified health status (3) Myasthenia gravis: Code(s): G70.00 - Myasthenia gravis without (acute) exacerbation (4) Obstructive sleep apnea: Code(s): G47.33 - Obstructive sleep apnea (adult) (pediatric) (5) Atrial fibrillation: Code(s): I48.91 - Unspecified atrial fibrillation Documented By: Pat Hoover DO 05/18/231751 Signed By: <Electronically signed by Pat Hoover DO> 05/18/23 1800 [facility] Work Phone: 1(325) 566-797209-28-2023 Progress note Author Stanley Burt [facility] May 18, 2023 4:48pm Note Date/Time May 18, 2023 8:38am [facility] [address] [place] [address] Pulmonology Progress Note Signed Patient: Taurus Garcia MR#: [id number] : 1945 Acct:[id number] Age/Sex: 77 / M Adm Date: 3 Loc: Room: [address] [place] [address] Type: ADM IN Attending Dr: Suraj Razo MD Copies to: ~ Date of Service: 05/18/2023 Subjective Subjective Narrative: Patient is much more awake and talkative today with , daughter, and son-in-law at bedside. He has no reported pulmonary issues and continues overall weak but is working with Physical Therapy and Occupational Therapy. Exam Physical Exam Vital Signs: Temp Pulse Resp BP Pulse Ox O2 Del Method O2 Flow Rate 98.9 F 90 16 150/70 H 95 Nasal Cannula 2 05/17/23 20:00 05/18/23 06:00 05/18/23 06:00 05/18/23 06:00 05/18/23 06:00 05/18/23 06:00 05/18/23 06:00 FiO2 4 05/15/23 18:00 Const General: cooperative Orientation: alert and awake HEENT Head: normal to inspection Ears: hearing grossly normal bilaterally and external ears normal Nose: external nose normal Face and sinus: normal facial exam Eyes Eyelids: eyelids normal Sclera: sclerae normal Neck Neck: normal visual inspection Resp Effort & Inspection: normal respiratory effort Auscultation: clear to auscultation bilaterally, diminished lung sounds, no rales, no rhonchi and no wheezes Cardio Heart Sounds: S1 normal, S2 normal and no murmurs GI Inspection: normal to inspection Palpation: soft and nontender General: deferred Skin General: no rashes or lesions noted (Warm and dry) Extrem General: edema Laterality: bilaterally (nonpitting) Objective Intake and Output I&O - Last 24 Hours: Intake & Output 05/17/23 05/18/23 05/18/23 23:59 07:59 15:59 Intake Total 220 / 640 60 / 60 Output Total 650 / 1550 475 / 475 Balance -430 / -910 -415 / -415 Weight 154.9 kg Labs 05/18/23 04:16 05/17/23 04:19 Microbiology Micro: Microbiology 05/16/23 12:00 Blood Culture - Preliminary Blood - Right Hand No Growth 1 Day 05/16/23 10:32 Urine Culture - Preliminary Urine, [place] No Growth 1 Day 05/16/23 10:04 Blood Culture - Preliminary Blood - Left Hand No Growth 1 Day 05/12/23 07:39 Blood Culture - Final Blood - Other NO GROWTH 5 DAYS Assessment/Plan Assessment/Plan (1) Acute respiratory failure with hypoxia: (2) Myasthenic crisis: (3) CKD (chronic kidney disease) stage 3, GFR 30-59 ml/min: (4) Obstructive sleep apnea: Plan Hospital day #8 for patient with myasthenia gravis flare extubated after receiving 5 days of IVIG as well as steroid burst and continuing on Mestinon. Patient again went back into atrial fibrillation with rapid ventricular response and wasstarted on amiodarone infusion. At this point, we will ask cardiology to evaluate the patient as he is normally followed by Dr. Hoover. He continues onanticoagulation with apixaban. Patient is stable for discharge from a pulmonary/critical care medicine perspective to her rehabilitation though may require adjustment in medications to better control his atrial fibrillation. Documented By: Stanley Burt MD 3 0837 Signed By: <Electronically signed by MD Stanley Burt> 05/18/23 1648 [facility] Work Phone: [phone]) [phone] Progress note Author Suraj Razo [facility] May 18, 2023 12:58pm Note Date/Time May 18, 2023 12:55pm [facility] [address] [place] [address] Hospitalist Progress Note Signed Patient: Taurus Garcia MR#: [id number] : 1945 Acct:[id number] Age/Sex: 77 / M Adm Date: 3 Loc: Room: [address] [place] [address] Type: ADM IN Attending Dr: Suraj Razo MD Copies to: ~ Date of Service: 05/18/2023 Subjective Subjective Narrative: Assessment And Plan 77M with PMH of HTN, HLD, Myasthenia Gravis (Dx 2016), CKD, PE(On Eliquis) who was admitted to [facility] 05/09 for generalized weakness. He was intubated there then transferred for the evaluation and treatment of suspected acute myasthenia gravis exacerbation. Acute Respiratory Failure due to Myasthenia gravis exacerbation Seen and examined s/p extubation Clinically stable On nasal cannula 2 L of oxygen Saturation 96% Feeling very weak Back to Afib last night Started again on Amiodarone Infusion Now on sinus rhythm No fever No Leukocytosis Worsening edema Blood cultures are negative Sputum cultures are negative Resume Lasix BMP daily PT/OT Referral to acute rehab Myasthenia gravis exacerbation Completed IVIG Continue with prednisone orally Continue with pyridostigmine Pulmonary embolism: On Eliquis p.o. twice daily Drug induced Hypotension Resolved Drug induced Sinus Bradycardia Resolved Afib with RVR On sinus rhythm Back on Amiodarone infusion Bystolic PO 10 mg Eliquis PO BID Mag in am BMP in am Discussed with his at bedside' Discussed with nursing staff DC planning: Acute rehab Exam Physical Exam Vital Signs: Temp Pulse Resp BP Pulse Ox O2 Del Method O2 Flow Rate 98.9 F 84 14 160/74 H 96 Nasal Cannula 2 05/18/23 08:00 05/18/23 10:00 05/18/23 10:00 05/18/23 10:00 05/18/23 10:00 05/18/23 10:00 05/18/23 10:00 FiO2 4 05/15/23 18:00 Narrative: General patient laying in bed in no acute distress alert awake oriented x3 HEENT PERRLA Neck supple no JVD no carotid bruit CVS S1-S2 regular rate and rhythm no murmur no gallop Chest clear to auscultation percussion Abdomen soft bowel sounds normoactive no rebound no guarding Extremities no stenosis no clubbing no edema Musculoskeletal exam normal no joint effusion Neurologic exam oriented x3 alert awake no focal left Psychiatry: Normal insight and judgment Objective Lab Results 05/18/23 04:16 05/17/23 04:19 Microbiology Results Microbiology 05/16/23 12:00 Blood - Right Hand Blood Culture - Preliminary No Growth 2 Days 05/16/23 10:04 Blood - Left Hand Blood Culture - Preliminary No Growth 2 Days 05/16/23 10:32 Urine, [place] Urine Culture - Final No Growth 2 Days Meds Allergies and Active Meds Allergies No Known Allergies Allergy (Verified 12/27/17 16:51) Active Meds: Active Medications Generic Name Dose Route Start Last Admin Trade Name Jana PRN Reason Stop Dose Admin Acetaminophen 650 mg 05/11/23 01:00 05/16/23 09:25 Acetaminophen 325 Mg Tablet PO 05/10/24 00:59 650 mg Q6HR PRN Administration Pain Scale 1 - 3 or fever Albuterol 2.5 mg 05/15/23 15:57 Albuterol Neb 2.5 Mg/3 Ml Vial.Neb INHALATION 05/14/24 15:56 Q3H PRN Shortness Of Breath Apixaban 5 mg 05/11/23 09:00 05/18/23 08:03 Apixaban 5 Mg Tablet PO 05/10/24 08:59 5 mg BID DORI Administration Atorvastatin Calcium 20 mg 05/11/23 22:00 05/17/23 22:10 Atorvastatin 20 Mg Tablet PO 05/10/24 21:59 20 mg HS DORI Administration Dextrose 0 gm 05/11/23 09:43 Dextrose 50% In Water 25 Gm/50 Ml Syringe IV-PUSH 05/10/24 09:42 PRN PRN Hypoglycemia Furosemide 20 mg 05/11/23 11:45 05/18/23 10:45 Furosemide 20 Mg Tablet PO 05/10/24 11:44 20 mg DAILY DORI Administration Hydralazine HCl 50 mg 05/11/23 11:45 05/18/23 08:04 Hydralazine 50 Mg Tablet PO 05/10/24 11:44 50 mg BID DORI Administration Amiodarone HCl 450 mg/ 250 mls @ 16.667 mls/hr 05/17/23 20:15 05/17/23 20:30 Dextrose IV 05/16/24 20:14 0.5 mg/min .Q15H DORI 16.67 mls/hr Administration 0.5 MG/MIN Lisinopril 20 mg 05/11/23 11:45 05/18/23 10:45 Lisinopril 20 Mg Tablet PO 05/10/24 11:44 20 mg DAILY DORI Administration Loratadine 10 mg 05/12/23 09:00 05/18/23 08:04 Loratadine 10 Mg Tablet PO 05/11/24 08:59 10 mg DAILY DORI Administration Nebivolol 10 mg 05/11/23 11:45 05/18/23 08:03 Nebivolol 5 Mg Tablet PO 05/10/24 11:44 10 mg DAILY DORI Administration Prednisone 10 mg 05/17/23 09:00 05/18/23 08:03 Prednisone 10 Mg Tablet PO 05/16/24 08:59 10 mg DAILY DORI Administration Pyridostigmine [place] 60 mg 05/18/23 14:00 Pyridostigmine [place] 60 Mg Tablet PO 05/17/24 13:59 QID DORI A&P - Hospitalist Assessment/Plan (1) Acute exacerbation of myasthenia gravis: (2) Acute respiratory failure with hypoxia: (3) CKD (chronic kidney disease) stage 3, GFR 30-59 ml/min: Plan . Documented By: Suraj Razo MD 05/18/231252 Signed By: <Electronically signed by Suraj Razo MD> 05/18/23 1257 [facility] Work Phone: [phone]) [phone] Progress note Author Jamel Packer [facility] May 17, 2023 2:05pm Note Date/Time May 17, 2023 2:05pm [facility] [address] [place] [address] Neurology Progress Note Signed Patient: Taurus Garcia MR#: [id number] : 1945 Acct:[id number] Age/Sex: 77 / M Adm Date: 3 Loc: Room: [address] [place] [address] Type: ADM IN Attending Dr: Suraj Raoz MD Copies to: ~ Date of Service: 05/17/2023 Exam Physical Exam Vital Signs: Temp Pulse Resp BP Pulse Ox O2 Del Method O2 Flow Rate 98.3 F 60 19 157/74 H 95 Nasal Cannula 2 05/17/23 12:00 05/17/23 13:56 05/17/23 13:56 05/17/23 13:56 05/17/23 13:56 05/17/23 13:56 05/17/23 13:56 FiO2 4 05/15/23 18:00 Objective Vital Signs Vital Signs: Vital Signs - 24 hr 05/16/23 15:00 05/16/23 15:33 05/16/23 16:00 Temperature 97.6 F Pulse Rate Pulse Rate [Monitor] 50 L Respiratory Rate 13 Blood Pressure Blood Pressure [Left Arm] 125/58 L 02 Sat by Pulse Oximetry 95 Oxygen Delivery Method Nasal Cannula Nasal Cannula Nasal Cannula Oxygen Flow Rate 3 3 3 05/16/23 16:00 05/16/23 17:00 05/16/23 18:00 Temperature 97.8 F 97.7 F 98 F Pulse Rate Pulse Rate [Monitor] 49 L 50 L 53 L Respiratory Rate 13 12 18 Blood Pressure Blood Pressure [Left Arm] 126/62 117/59 L 133/91 02 Sat by Pulse Oximetry 95 94 L 95 Oxygen Delivery Method Nasal Cannula Nasal Cannula Nasal Cannula Oxygen Flow Rate 3 3 2 05/16/23 18:57 05/16/23 19:00 05/16/23 20:00 Temperature 99.4 F H Pulse Rate 54 L Pulse Rate [Monitor] 54 L 56 L Respiratory Rate 16 16 Blood Pressure 133/91 Blood Pressure [Left Arm] 135/64 129/58 L 02 Sat by Pulse Oximetry 95 94 L Oxygen Delivery Method Nasal Cannula Nasal Cannula Oxygen Flow Rate 2 2 05/16/23 21:00 05/16/23 22:00 05/16/23 23:00 Temperature Pulse Rate Pulse Rate [Monitor] 56 L 58 L 55 L Respiratory Rate 16 18 14 Blood Pressure Blood Pressure [Left Arm] 124/60 120/58 L 119/57 L 02 Sat by Pulse Oximetry 93 L 94 L 93 L Oxygen Delivery Method Nasal Cannula Nasal Cannula Nasal Cannula Oxygen Flow Rate 2 2 2 05/16/23 20:00 05/17/23 00:00 05/17/23 00:00 Temperature Pulse Rate Pulse Rate [Monitor] 56 L Respiratory Rate 14 Blood Pressure Blood Pressure [Left Arm] 131/62 02 Sat by Pulse Oximetry 94 L Oxygen Delivery Method Nasal Cannula Nasal Cannula Nasal Cannula Oxygen Flow Rate 2 2 2 05/17/23 01:00 05/17/23 02:00 05/17/23 03:00 Temperature 99.6 F H Pulse Rate Pulse Rate [Monitor] 58 L 56 L 54 L Respiratory Rate 26 H 20 16 Blood Pressure Blood Pressure [Left Arm] 131/63 132/62 149/69 H 02 Sat by Pulse Oximetry 94 L 94 L 94 L Oxygen Delivery Method Nasal Cannula Nasal Cannula Nasal Cannula Oxygen Flow Rate 2 2 2 05/17/23 04:00 05/17/23 05:00 05/17/23 06:00 Temperature 98.8 F Pulse Rate Pulse Rate [Monitor] 57 L 55 L 53 L Respiratory Rate 20 20 16 Blood Pressure Blood Pressure [Left Arm] 145/65 H 172/81 H 140/85 02 Sat by Pulse Oximetry 94 L 94 L 92 L Oxygen Delivery Method Nasal Cannula Nasal Cannula Nasal Cannula Oxygen Flow Rate 2 2 2 05/17/23 08:00 05/17/23 08:00 05/17/23 09:00 Temperature 97.9 F Pulse Rate Pulse Rate [Monitor] 57 L 59 L Respiratory Rate 19 16 Blood Pressure Blood Pressure [Left Arm] 151/70 H 142/65 H 02 Sat by Pulse Oximetry 95 94 L Oxygen Delivery Method Nasal Cannula Nasal Cannula Nasal Cannula Oxygen Flow Rate 2 2 2 05/17/23 08:00 05/17/23 10:00 05/17/23 10:57 Temperature Pulse Rate Pulse Rate [Monitor] 63 69 Respiratory Rate 18 20 Blood Pressure Blood Pressure [Left Arm] 131/60 123/60 02 Sat by Pulse Oximetry 94 L 94 L Oxygen Delivery Method Nasal Cannula Nasal Cannula Nasal Cannula Oxygen Flow Rate 2 2 2 05/17/23 12:00 05/17/23 13:00 05/17/23 13:56 Temperature 98.3 F Pulse Rate Pulse Rate [Monitor] 58 L 61 60 Respiratory Rate 14 15 19 Blood Pressure Blood Pressure [Left Arm] 139/67 150/73 H 157/74 H 02 Sat by Pulse Oximetry 95 95 95 Oxygen Delivery Method Nasal Cannula Nasal Cannula Nasal Cannula Oxygen Flow Rate 2 2 2 Labs 05/17/23 04:19 05/17/23 04:19 Therapy Recommendations Therapy Recommendations: OT Recommendations OT Recommended Discharge [facility] Location OT Recommended Services at Physical Therapy,Occupational Therapy,Speech Discharge Therapy,13/03 Supervision PT Recommendations PT Recommended Discharge [facility] Location PT Recommended Services at Physical Therapy,Occupational Therapy Discharge ST Recommendations Level of Supervision 1:1 Feeding Supervision Liquid Consistency [place]-Thick Liquids Recommendation Solid Consistency Pureed Solids Recommendations Meat Consistency Pureed Meats Recommendations Medication Administration Crush Pills,Give Pills in Applesauce Dysphagia Swallow Precautions/ Sitting Upright (90 deg),Small Bites/Sips, Strategies Liquids via Spoon,Pacing/Slow-Rate ST Recommended Services at 13/03 Supervision Discharge Assessment/Plan (1) Myasthenic crisis: Assessment/Problem Details: CONSULT REASON: Exacerbation of myasthenia gravis, myasthenic crisis SUBJECTIVE: Still breathing okay. Feels weak in arms and legs. Apparently therapy had him up sitting on the side of the bed. He is fairly exhausted since then. EXAMINATION: Reclined in ICU bed. Spontaneously awake. Readily attempts to follow commands. Can hardly lift arms or legs. Upgaze is seemingly limited as well. Pupils arebaseline, with mild anisocoria previously documented. Gaze appears conjugate. No significant increased work of breathing. Nasal cannula in place. Speech is fluent and nondysarthric, though spoken sentences are short. Normal deep tendonreflexes of bilateral upper extremities and at the patella bilaterally. DATA REVIEW: -MRI brain February 28, 2018 unremarkable for acute process -CK1 75 ASSESSMENT: Myasthenic crisis, now status post a 5-day course of a total of 2 g/kg IVIG as well as 5 days of prednisone 60 mg. Extubated afternoon of May 15, 2023 and work of breathing continues to seem adequate. He continues to have profoundand fatigable weakness in all 4 extremities otherwise though. PLAN: 1. Decreased prednisone back to home dose of 10 mg daily 2. Continue the pyridostigmine at 60 mg 4 times daily (this was his home dose);currently without any significant secretion issues Code(s): G70.01 - Myasthenia gravis with (acute) exacerbation Status: Acute Documented By: Jamel Packer DO 05/17/231401 Signed By: <Electronically signed by Jamel Packer DO> 05/17/23 1407 [facility] Work Phone: 1([phone]) 351-327809-27-2023 Progress note Author Stanley Burt [facility] May 17, 2023 12:50pm Note Date/Time May 17, 2023 12:50pm [facility] [address] [place] [address] Pulmonology Progress Note Signed Patient: Taurus Garcia MR#: [id number] : 1945 Acct:[id number] Age/Sex: 77 / M Adm Date: 3 Loc: Room: [address] [place] [address] Type: ADM IN Attending Dr: Suraj Razo MD Copies to: ~ Date of Service: 05/17/2023 Subjective Subjective Narrative: Patient states he is doing well this morning. He states he is not having any difficulty breathing and has been able to manage his secretions. He states he has had no trouble swallowing or eating his pur?ed diet. Exam Physical Exam Vital Signs: Temp Pulse Resp BP Pulse Ox O2 Del Method O2 Flow Rate 98.8 F 53 L 16 140/85 92 L Nasal Cannula 2 05/17/23 04:00 05/17/23 06:00 05/17/23 06:00 05/17/23 06:00 05/17/23 06:00 05/17/23 06:00 05/17/23 06:00 FiO2 4 05/15/23 18:00 Const General: cooperative Nutritional Appearance: obese Orientation: alert and awake HEENT Head: normal to inspection Nose: external nose normal Neck Neck: normal visual inspection Resp Effort & Inspection: uses accessory muscles Auscultation: clear to auscultation bilaterally, diminished lung sounds, no rales, no rhonchi and no wheezes Cardio Rate: tachycardic Rhythm: abnormal rhythm irregularly irregular Heart Sounds: S1 normal and S2 normal Pulses: radial pulses present GI Palpation: soft and no hepatosplenomegaly Other: harrell catheter in place Skin General: no rashes or lesions noted Objective Intake and Output I&O - Last 24 Hours: Intake & Output 05/16/23 05/16/23 05/17/23 15:59 23:59 07:59 Intake Total 100 / 700 350 / 700 60 / 60 Output Total 800 / 1550 300 / 1550 450 / 450 Balance -700 / -850 50 / -850 -390 / -390 Weight 154.2 kg Labs 05/17/23 04:19 05/17/23 04:19 Microbiology Micro: Microbiology 05/12/23 07:34 Blood Culture - Final Blood - Left Hand Staphylococcus sp coag neg Bacterial ID (NA Multiplex Assay) - Final 05/12/23 07:39 Blood Culture - Preliminary Blood - Other No Growth 4 Days Imaging and Cardiology Echo: Additional comments: Interpretation Summary The left ventricular wall motion is normal. Mild concentric left ventricular hypertrophy. Ejection Fraction = 60-65%. There is trace tricuspid regurgitation. The study was technically limited. Compared to prior study, there is no significant change. Assessment/Plan Assessment/Plan (1) Acute respiratory failure with hypoxia: (2) Myasthenic crisis: (3) CKD (chronic kidney disease) stage 3, GFR 30-59 ml/min: (4) Obstructive sleep apnea: Plan Hospital day #7 for patient with history of myasthenia gravis. Patient is currently on 2 L of oxygen. Patient was assessed by speech therapy who recommended a pur?ed diet. Patient is currently on amiodarone for atrial fibrillation with RVR. We will attempt to wean his amiodarone. Patient was started on his home dose of apixaban. Patient also was started on his home dose of prednisone and pyridostigmine. Case discussed and patient seen on rounds in conjunction with student Dr. Kimball. Patient was interviewed and examined. Vital signs and labs were reviewed. Exam is as noted above with patient continue to be globally weak but with clear airways without clear evidence of difficulty managing secretions. I agree with the note above. Patient is working with physical therapy and Occupational Therapy. From a pulmonary/critical care medicine perspective, patient has been stable off mechanical ventilation for 48 hours and is back on his home regimen for his myasthenia gravis. He is on therapy for his atrial fibrillation and has resumed his beta-ha. I would recommend observation for another 24 hours to ensure that his atrial fibrillation is stable. Subsequent to that the patient would be stable for discharge out of the intensive care unit from our perspective. We will continue to follow with you while the patient is in the ICU. Documented By: Stanley Burt MD [id number] Signed By: <Electronically signed by MD Stanley Burt> 05/17/23 1602 [facility] Work Phone: 1(589) 331-473309-27-2023 Progress note Author Suraj Razo [facility] May 17, 2023 11:57am Note Date/Time May 17, 2023 11:48am [facility] [address] [place] [address] Hospitalist Progress Note Signed Patient: Taurus Garcia MR#: [id number] : 1945 Acct:[id number] Age/Sex: 77 / M Adm Date: 3 Loc: Room: [address] [place] [address] Type: ADM IN Attending Dr: Suraj Razo MD Copies to: ~ Date of Service: 05/17/2023 Subjective Subjective Narrative: Assessment And Plan 77M with H of HTN, HLD, Myasthenia Gravis (Dx 2016), CKD, PE(On Eliquis) who was admitted to [facility] 05/09 for generalized weakness. He was intubated there then transferred for the evaluation and treatment of suspected acute myasthenia gravis exacerbation. Acute Respiratory Failure due to Myasthenia gravis exacerbation Seen and examined s/p extubation Clinically stable On nasal cannula 2 L of oxygen Saturation 94% Low-grade fever No leukocytosis ON sinus rhythm now Off Amiodaron infusion Blood cultures are negative Sputum cultures are negative PT/OT Referral to acute rehab Myasthenia gravis exacerbation Completed IVIG Continue with prednisone orally Continue with pyridostigmine Pulmonary embolism: On Eliquis p.o. twice daily Drug induced Hypotension Resolved Drug induced Sinus Bradycardia Resolved Afib with RVR On sinus rhythm Off Amiodarone infusion Started on Bystolic PO 10 mg Eliquis PO BID Discussed with his at bedside' Discussed with nursing staff DC planning: Acute rehab Exam Physical Exam Vital Signs: Temp Pulse Resp BP Pulse Ox O2 Del Method O2 Flow Rate 97.9 F 69 20 123/60 94 L Nasal Cannula 2 05/17/23 08:00 05/17/23 10:57 05/17/23 10:57 05/17/23 10:57 05/17/23 10:57 05/17/23 10:57 05/17/23 10:57 FiO2 4 05/15/23 18:00 Narrative: General patient laying in bed in no acute distress alert awake oriented x3 HEENT PERRLA Neck supple no JVD no carotid bruit CVS S1-S2 regular rate and rhythm no murmur no gallop Chest clear to auscultation percussion Abdomen soft bowel sounds normoactive no rebound no guarding Extremities no stenosis no clubbing no edema Musculoskeletal exam normal no joint effusion Neurologic exam oriented x3 alert awake no focal left Psychiatry: Normal insight and judgment Objective Lab Results 05/17/23 04:19 05/17/23 04:19 Microbiology Results Microbiology 05/16/23 10:32 Urine, Harrell Urine Culture - Preliminary No Growth 1 Day 05/16/23 10:04 Blood - Left Hand Blood Culture - Preliminary No Growth 1 Day 05/12/23 07:39 Blood - Other Blood Culture - Final NO GROWTH 5 DAYS 05/12/23 07:34 Blood - Left Hand Blood Culture - Final Staphylococcus sp coag neg 05/12/23 07:34 Blood - Left Hand Bacterial ID (NA Multiplex Assay) - Final Meds Allergies and Active Meds Allergies No Known Allergies Allergy (Verified 12/27/17 16:51) Active Meds: Active Medications Generic Name Dose Route Start Last Admin Trade Name Freq PRN Reason Stop Dose Admin Acetaminophen 650 mg 05/11/23 01:00 05/16/23 09:25 Acetaminophen 325 Mg Tablet PO 05/10/24 00:59 650 mg Q6HR PRN Administration Pain Scale 1 - 3 or fever Albuterol 2.5 mg 05/15/23 15:57 Albuterol Neb 2.5 Mg/3 Ml Vial.Neb INHALATION 05/14/24 15:56 Q3H PRN Shortness Of Breath Apixaban 5 mg 05/11/23 09:00 05/17/23 08:53 Apixaban 5 Mg Tablet PO 05/10/24 08:59 5 mg BID DORI Administration Atorvastatin Calcium 20 mg 05/11/23 22:00 05/16/23 21:30 Atorvastatin 20 Mg Tablet PO 05/10/24 21:59 20 mg HS DORI Administration Dextrose 0 gm 05/11/23 09:43 Dextrose 50% In Water 25 Gm/50 Ml Syringe IV-PUSH 05/10/24 09:42 PRN PRN Hypoglycemia Furosemide 20 mg 05/11/23 11:45 05/12/23 08:39 Furosemide 20 Mg Tablet PO 05/10/24 11:44 20 mg DAILY DORI Administration Hydralazine HCl 50 mg 05/11/23 11:45 05/17/23 08:53 Hydralazine 50 Mg Tablet PO 05/10/24 11:44 50 mg BID DORI Administration Lisinopril 20 mg 05/11/23 11:45 05/12/23 08:39 Lisinopril 20 Mg Tablet PO 05/10/24 11:44 20 mg DAILY DORI Administration Loratadine 10 mg 05/12/23 09:00 05/17/23 08:53 Loratadine 10 Mg Tablet PO 05/11/24 08:59 10 mg DAILY DORI Administration Nebivolol 10 mg 05/11/23 11:45 05/17/23 08:52 Nebivolol 5 Mg Tablet PO 05/10/24 11:44 10 mg DAILY DORI Administration Prednisone 10 mg 05/17/23 09:00 05/17/23 08:53 Prednisone 10 Mg Tablet PO 05/16/24 08:59 10 mg DAILY DORI Administration Pyridostigmine [place] 60 mg 05/15/23 22:00 05/17/23 08:52 Pyridostigmine [place] 60 Mg Tablet NG-TUBE 05/14/24 21:59 60 mg TID DORI Administration A&P - Hospitalist Assessment/Plan (1) Acute exacerbation of myasthenia gravis: (2) Acute respiratory failure with hypoxia: (3) CKD (chronic kidney disease) stage 3, GFR 30-59 ml/min: Plan . Documented By: Suraj Razo MD 05/17/23 1146 Signed By: <Electronically signed by Suraj Razo MD> 05/17/23 1157 [facility] Work Phone: [phone]) [phone] Progress note Author Silvestre Grover [facility] May 17, 2023 10:48am Note Date/Time May 17, 2023 10:48am [facility] [address] [place] [address] Physiatry(Rehab) Progress Note Signed Patient: Taurus Garcia MR#: [id number] : 1945 Acct:[id number] Age/Sex: 77 / M Adm Date: 3 Loc: Room: [address] [place] [address] Type: ADM IN Attending Dr: Suraj Razo MD Copies to: ~ Date of Service: 05/17/2023 Subjective Subjective Narrative: Mr. Garcia is a 77 year old male hospital day #6 for myasthenic crisis, intubated on admission, just extubated 05/15, being evaluated for possible IRF placement when ready. His reports that he is premorbidly independent. She denies him ever havinga myasthenic crisis like this before. She states he was in his usual state of health until he began to feel generally weak, he presented to [facility] and was subsequently intubated and transferred to the ICU here. With regards to myasthenia crisis-prednisone being decreased to home dose, pyridostigmine continued at present at lower dose. S/p 5 days of IVIG. Interval History: No acute events overnight. Vitals stable on 2L nasal cannula. Awake and alert, looks somewhat improved from yesterday. PT/OT from today- not yet evaluated. Review of Systems Review of Systems All other systems reviewed & are negative unless noted below or in HPI Exam Physical Exam Vital Signs: Temp Pulse Resp BP Pulse Ox O2 Del Method O2 Flow Rate 97.9 F 63 18 131/60 94 L Nasal Cannula 2 05/17/23 08:00 05/17/23 10:00 05/17/23 10:00 05/17/23 10:00 05/17/23 10:00 05/17/23 10:00 05/17/23 10:00 FiO2 4 05/15/23 18:00 Narrative: Opens eyes to voice, converses and can follow commands Non-labored breathing with nasal cannula in place RRR Abdomen soft Able to squeeze with both hands Impaired sensation Reflexes present 2-3+ edema b/l. Objective Labs 05/17/23 04:19 05/17/23 04:19 Labs: Laboratory Results - last 24 hr 05/16/23 05/16/23 05/16/23 03:53 03:53 03:53 Corrected WBC Uncorrected WBC Count RBC Hgb Hct MCV MCH MCHC RDW Plt Count MPV Neut % (Auto) Lymph % (Auto) Turner % (Auto) Eos % (Auto) Baso % (Auto) Nucleat RBC Rel Count Neut # (Auto) Lymph # (Auto) Turner # (Auto) Eos # (Auto) Baso # (Auto) PHA Creatinine Clear 72.13 Sodium 139 Potassium 3.7 Chloride 101 Carbon Dioxide 38.1 H Anion Gap 3.6 L BUN 35 H Creatinine 1.22 Est GFR (CKD-EPI) > 60.0 Glucose 91 POC Glucose POC Glucose Comment Calcium 8.6 Magnesium Total Creatine Kinase Troponin I High Sens 33.0 H TSH 3rd Generation 1.50 Urine Color Urine Appearance Urine pH Ur Specific Paron Urine Protein Urine Glucose (UA) Urine Ketones Urine Occult Blood Urine Nitrite Urine Bilirubin Urine Urobilinogen Ur Leukocyte Esterase Urine RBC Urine WBC Ur Squamous Epith Cells Calcium Oxalate Crystal Urine Bacteria Hyaline Casts Urine Yeast 05/16/23 05/16/23 05/16/23 10:32 13:20 16:37 Corrected WBC Uncorrected WBC Count RBC Hgb Hct MCV MCH MCHC RDW Plt Count MPV Neut % (Auto) Lymph % (Auto) Turner % (Auto) Eos % (Auto) Baso % (Auto) Nucleat RBC Rel Count Neut # (Auto) Lymph # (Auto) Turner # (Auto) Eos # (Auto) Baso # (Auto) PHA Creatinine Clear Sodium Potassium Chloride Carbon Dioxide Anion Gap BUN Creatinine Est GFR (CKD-EPI) Glucose POC Glucose 165 POC Glucose Comment Glu2: cleaned meter Calcium Magnesium Total Creatine Kinase 175 Troponin I High Sens TSH 3rd Generation Urine Color Yellow Urine Appearance Clear Urine pH 5.5 Ur Specific Paron 1.026 Urine Protein 30 H Urine Glucose (UA) Normal Urine Ketones Negative Urine Occult Blood Negative Urine Nitrite Negative Urine Bilirubin Negative Urine Urobilinogen Normal Ur Leukocyte Esterase 1+ H Urine RBC 1-2 Urine WBC 1-2 Ur Squamous Epith Cells 0-1 Calcium Oxalate Crystal 1+ Urine Bacteria None seen Hyaline Casts 9-19 H Urine Yeast None seen 05/16/23 05/17/23 05/17/23 17:44 00:36 04:19 Corrected WBC 4.5 Uncorrected WBC Count 4.5 RBC 4.38 Hgb 12.3 L Hct 36.8 L MCV 84.1 MCH 28.1 MCHC 33.4 RDW 18.3 H Plt Count 109 L MPV 8.6 Neut % (Auto) 72.4 Lymph % (Auto) 12.6 Turner % (Auto) 7.6 Eos % (Auto) 7.1 Baso % (Auto) 0.3 Nucleat RBC Rel Count 0.5 Neut # (Auto) 3.2 Lymph # (Auto) 0.6 L Turner # (Auto) 0.3 Eos # (Auto) 0.3 Baso # (Auto) 0.0 PHA Creatinine Clear Sodium Potassium Chloride Carbon Dioxide Anion Gap BUN Creatinine Est GFR (CKD-EPI) Glucose POC Glucose 146 107 POC Glucose Comment Glu2: cleaned meter Calcium Magnesium Total Creatine Kinase Troponin I High Sens TSH 3rd Generation Urine Color Urine Appearance Urine pH Ur Specific Paron Urine Protein Urine Glucose (UA) Urine Ketones Urine Occult Blood Urine Nitrite Urine Bilirubin Urine Urobilinogen Ur Leukocyte Esterase Urine RBC Urine WBC Ur Squamous Epith Cells Calcium Oxalate Crystal Urine Bacteria Hyaline Casts Urine Yeast 05/17/23 04:19 Corrected WBC Uncorrected WBC Count RBC Hgb Hct MCV MCH MCHC RDW Plt Count MPV Neut % (Auto) Lymph % (Auto) Turner % (Auto) Eos % (Auto) Baso % (Auto) Nucleat RBC Rel Count Neut # (Auto) Lymph # (Auto) Turner # (Auto) Eos # (Auto) Baso # (Auto) PHA Creatinine Clear 83.01 Sodium 141 Potassium 3.6 Chloride 105 Carbon Dioxide 37.9 H Anion Gap 1.7 L BUN 40 H Creatinine 1.06 Est GFR (CKD-EPI) > 60.0 Glucose 89 POC Glucose POC Glucose Comment Calcium 8.3 L Magnesium 2.2 Total Creatine Kinase Troponin I High Sens TSH 3rd Generation Urine Color Urine Appearance Urine pH Ur Specific Paron Urine Protein Urine Glucose (UA) Urine Ketones Urine Occult Blood Urine Nitrite Urine Bilirubin Urine Urobilinogen Ur Leukocyte Esterase Urine RBC Urine WBC Ur Squamous Epith Cells Calcium Oxalate Crystal Urine Bacteria Hyaline Casts Urine Yeast Medications and Allergies Allergies and Active Meds: Allergies No Known Allergies Allergy (Verified 12/27/17 16:51) Active Medications Generic Name Dose Route Start Last Admin Trade Name Freq PRN Reason Stop Dose Admin Acetaminophen 650 mg 05/11/23 01:00 05/16/23 09:25 Acetaminophen 325 Mg Tablet PO 05/10/24 00:59 650 mg Q6HR PRN Administration Pain Scale 1 - 3 or fever Albuterol 2.5 mg 05/15/23 15:57 Albuterol Neb 2.5 Mg/3 Ml Vial.Neb INHALATION 05/14/24 15:56 Q3H PRN Shortness Of Breath Apixaban 5 mg 05/11/23 09:00 05/17/23 08:53 Apixaban 5 Mg Tablet PO 05/10/24 08:59 5 mg BID DORI Administration Atorvastatin Calcium 20 mg 05/11/23 22:00 05/16/23 21:30 Atorvastatin 20 Mg Tablet PO 05/10/24 21:59 20 mg HS DORI Administration Dextrose 0 gm 05/11/23 09:43 Dextrose 50% In Water 25 Gm/50 Ml Syringe IV-PUSH 05/10/24 09:42 PRN PRN Hypoglycemia Furosemide 20 mg 05/11/23 11:45 05/12/23 08:39 Furosemide 20 Mg Tablet PO 05/10/24 11:44 20 mg DAILY DORI Administration Hydralazine HCl 50 mg 05/11/23 11:45 05/17/23 08:53 Hydralazine 50 Mg Tablet PO 05/10/24 11:44 50 mg BID DORI Administration Lisinopril 20 mg 05/11/23 11:45 05/12/23 08:39 Lisinopril 20 Mg Tablet PO 05/10/24 11:44 20 mg DAILY DORI Administration Loratadine 10 mg 05/12/23 09:00 05/17/23 08:53 Loratadine 10 Mg Tablet PO 05/11/24 08:59 10 mg DAILY DORI Administration Nebivolol 10 mg 05/11/23 11:45 05/17/23 08:52 Nebivolol 5 Mg Tablet PO 05/10/24 11:44 10 mg DAILY DORI Administration Prednisone 10 mg 05/17/23 09:00 05/17/23 08:53 Prednisone 10 Mg Tablet PO 05/16/24 08:59 10 mg DAILY DORI Administration Pyridostigmine [place] 60 mg 05/15/23 22:00 05/17/23 08:52 Pyridostigmine [place] 60 Mg Tablet NG-TUBE 05/14/24 21:59 60 mg TID DORI Administration Assessment/Plan Assessment/Plan (1) Myasthenia gravis: Code(s): G70.00 - Myasthenia gravis without (acute) exacerbation Status: Acute (2) Hypertension: Code(s): I10 - Essential (primary) hypertension Status: Acute (3) Hyperlipidemia: Code(s): E78.5 - Hyperlipidemia, unspecified Status: Acute (4) Obstructive sleep apnea: Code(s): G47.33 - Obstructive sleep apnea (adult) (pediatric) Status: Acute (5) UTI (urinary tract infection) due to Enterococcus: Code(s): N39.0 - Urinary tract infection, site not specified; B95.2 - Enterococcus as thecause of diseases classified elsewhere Status: Acute (6) Acute exacerbation of myasthenia gravis: Code(s): G70.01 - Myasthenia gravis with (acute) exacerbation Status: Acute (7) CKD (chronic kidney disease) stage 3, GFR 30-59 ml/min: Code(s): N18.30 - Chronic kidney disease, stage 3 unspecified Status: Acute (8) Impaired mobility and activities of daily living: Code(s): Z74.09 - Other reduced mobility; Z78.9 - Other specified health status Status: Acute (9) Morbid obesity with BMI of 50.0-59.9, adult: Code(s): E66.01 - Morbid (severe) obesity due to excess calories; Z68.43 - Body mass index [BMI] 50.0-59.9, adult Status: Acute Plan 77 y/o male hospital day #6 for myasthenic crisis, intubated on admission to [facility], just extubated 05/15, being evaluated for possible IRF placement. -Discussed with pulmonology FUR COMBER. -At this time remains not medically ready for transition to IRF and cannot tolerate 3 hours of therapy daily. Dependent for all mobility. Limited tolerance. -Hopefully can progress over next several days and be able to tolerate IRF level therapy when medically stable for discharge, family prefers [facility] [place] as backup plan if LTACH not required. -Reviewed Neurology note, does not appear would require transfer to tertiary center at this time. -Will follow daily for updated progress. Plan: I completed a substantive portion of this encounter, the medical decision making portion of this note in its entirety, including Allied health note review, nursing note review, behavioral health consultant note review, discussion with nursing and case management, and more than 50% of my time was spent on counseling and coordination of care, time spent 25 minutes Patient was personally seen by me, Dr. Grover, on the day of encounter, reviewed the history and the relevant portions of the chart, including current orders, allied health and behavioral health consultant notes, labs/imaging and performed garcia elements of exam and I formulated the plan of care and facilitated the medical decision making. Documented By: Silvestre Grover MD 05/17/23 1044 Signed By: <Electronically signed by Silvestre Grover MD> 05/17/23 1048 [facility] Work Phone: 1(230) 624-400809-26-2023 Consult note Author Silvestre Grover [facility] May 16, 2023 3:19pm Note Date/Time May 16, 2023 2:46pm [facility] [address] [place] [address] Physiatry (Rehab) Consult Note Signed Patient: Taurus Garcia MR#: [id number] : 1945 Acct:[id number] Age/Sex: 77 / M Adm Date: 3 Loc: Room: [address] [place] [address] Type: ADM IN Attending Dr: Suraj Razo MD Copies to: MD Komal Cordoba II, MD Joseph Riley, MD~ Etiologic Dx/Impairment Group Narrative Narrative: Myasthenia gravis HPI Consult Date: 05/16/23 Requesting Physician: Suraj Razo MD Primary Care Provider: Komal Nguyen II, MD Consult Narrative Reason for consult: weakness, functional decline 2/2 myasthenia crisis HPI: Mr. Garcia is a 77 year old male hospital day #6 for myasthenic crisis, intubated on admission, just extubated 05/15, being evaluated for possible IRF placement when ready. His reports that he is premorbidly independent. She denies him ever havinga myasthenic crisis like this before. She states he was in his usual state of health until he began to feel generally weak, he presented to [facility] and was subsequently intubated and transferred to the ICU here. With regards to myasthenia crisis-prednisone being decreased to home dose, pyridostigmine continued at present at lower dose. S/p 5 days of IVIG. Febrile this morning, afib with RVR noted per chart review. Rate controlled now on amiodarone drip. PT/OT in room at beginning of encounter. Cleared only for bed level activity. Participated in range of motion. Eyes closed most of session. [employer] notes reviewed, cleared for modified diet. Review of Systems Review of Systems All other systems reviewed & are negative unless noted below or in HPI [facility] Medical History Acute exacerbation of myasthenia gravis Bladder cancer Congenital myasthenia gravis HTN (hypertension) Pulmonary emboli Family History Other Hypertension Social History Smoking Status: Never smoker Substance Use Type: Alcohol Substance Abuse Comment: little etoh Meds Medications and Allergies Allergies No Known Allergies Allergy (Verified 12/27/17 16:51) Home Medications hydralazine 50 mg tablet 50 mg PO BID 12/27/17 [History Confirmed 05/10/23] lisinopril 20 mg tablet 20 mg PO DAILY 12/27/17 [History Confirmed 05/10/23] loratadine 10 mg tablet (Allergy Relief (loratadine)) 10 mg PO DAILY 12/27/17 [History Confirmed 05/10/23] xhhcmyev-ayj-xtrzq acid 0.4 mg-lycopene 300 mcg-lutein 250 mcg tablet (Adults 50Plus) 1 tab PO DAILY 12/27/17 [History Confirmed 05/10/23] omega-3 fatty acids-fish oil 360 mg-1,200 mg capsule (Fish Oil) 1 cap PO BID 12/27/17 [History Confirmed 05/10/23] prednisone 10 mg tablet 10 mg PO DAILY 12/27/17 [History Confirmed 05/10/23] pyridostigmine bromide 60 mg tablet 1 tab PO QID 12/27/17 [History Confirmed 05/10/23] simvastatin 40 mg tablet 40 mg PO HS 12/27/17 [History Confirmed 05/10/23] triamterene 37.5 mg-hydrochlorothiazide 25 mg tablet (Maxzide-25mg) 1 tab PO DAILY 12/27/17 [History Confirmed 05/10/23] baclofen 10 mg tablet 1 tab PO Q8H 12/15/18 [History Confirmed 05/10/23] apixaban 5 mg (74 tabs) tablets in a dose pack 5 mg PO Q12H 05/10/23 [History Confirmed 05/10/23] furosemide 20 mg tablet 20 mg PO DAILY 05/10/23 [History Confirmed 05/10/23] nebivolol 10 mg tablet 10 mg PO DAILY 05/10/23 [History Confirmed 05/10/23] potassium chloride 10 mEq tablet,extended release(part/cryst) 10 meq PO DAILY 05/10/23 [History Confirmed 05/10/23] Exam Physical Exam Vital Signs: Temp Pulse Resp BP Pulse Ox O2 Del Method O2 Flow Rate 98.9 F 77 21 117/63 96 Nasal Cannula 4 05/16/23 11:00 05/16/23 11:00 05/16/23 11:00 05/16/23 11:00 05/16/23 11:00 05/16/23 11:00 05/16/23 11:00 FiO2 4 05/15/23 18:00 Narrative: Opens eyes to voice, closed for most of encounter due to fatigue Non-labored breathing with nasal cannula in place RRR Abdomen soft Able to squeeze with both hands Impaired sensation Reflexes present 2-3+ edema b/l. Results Labs Labs: Laboratory Results - last 24 hr 05/15/23 05/15/23 05/15/23 12:10 18:36 20:02 Corrected WBC Uncorrected WBC Count RBC Hgb Hct MCV MCH MCHC RDW Plt Count MPV Neut % (Auto) Lymph % (Auto) Turner % (Auto) Eos % (Auto) Baso % (Auto) Nucleat RBC Rel Count Neut # (Auto) Lymph # (Auto) Turner # (Auto) Eos # (Auto) Baso # (Auto) Potassium 4.0 POC Glucose 152 146 Magnesium 1.9 Urine Color Urine Appearance Urine pH Ur Specific Paron Urine Protein Urine Glucose (UA) Urine Ketones Urine Occult Blood Urine Nitrite Urine Bilirubin Urine Urobilinogen Ur Leukocyte Esterase Urine RBC Urine WBC Ur Squamous Epith Cells Calcium Oxalate Crystal Urine Bacteria Hyaline Casts Urine Yeast 05/16/23 05/16/23 05/16/23 00:36 03:53 10:32 Corrected WBC 5.4 Uncorrected WBC Count 5.4 RBC 4.70 Hgb 13.0 Hct 39.8 MCV 84.7 MCH 27.7 MCHC 32.7 RDW 18.3 H Plt Count 114 L MPV 9.3 Neut % (Auto) 82.7 Lymph % (Auto) 7.8 Turner % (Auto) 5.0 Eos % (Auto) 4.2 Baso % (Auto) 0.3 Nucleat RBC Rel Count 0.5 Neut # (Auto) 4.4 Lymph # (Auto) 0.4 L Turner # (Auto) 0.3 Eos # (Auto) 0.2 Baso # (Auto) 0.0 Potassium POC Glucose 100 Magnesium Urine Color Yellow Urine Appearance Clear Urine pH 5.5 Ur Specific Paron 1.026 Urine Protein 30 H Urine Glucose (UA) Normal Urine Ketones Negative Urine Occult Blood Negative Urine Nitrite Negative Urine Bilirubin Negative Urine Urobilinogen Normal Ur Leukocyte Esterase 1+ H Urine RBC 1-2 Urine WBC 1-2 Ur Squamous Epith Cells 0-1 Calcium Oxalate Crystal 1+ Urine Bacteria None seen Hyaline Casts 9-19 H Urine Yeast None seen Assessment/Plan (1) Myasthenia gravis: Code(s): G70.00 - Myasthenia gravis without (acute) exacerbation Status: Acute (2) Hypertension: Code(s): I10 - Essential (primary) hypertension Status: Acute (3) Hyperlipidemia: Code(s): E78.5 - Hyperlipidemia, unspecified Status: Acute (4) Obstructive sleep apnea: Code(s): G47.33 - Obstructive sleep apnea (adult) (pediatric) Status: Acute (5) UTI (urinary tract infection) due to Enterococcus: Code(s): N39.0 - Urinary tract infection, site not specified; B95.2 - Enterococcus as thecause of diseases classified elsewhere Status: Acute (6) Acute exacerbation of myasthenia gravis: Code(s): G70.01 - Myasthenia gravis with (acute) exacerbation Status: Acute (7) CKD (chronic kidney disease) stage 3, GFR 30-59 ml/min: Code(s): N18.30 - Chronic kidney disease, stage 3 unspecified Status: Acute (8) Impaired mobility and activities of daily living: Code(s): Z74.09 - Other reduced mobility; Z78.9 - Other specified health status Status: Acute (9) Morbid obesity with BMI of 50.0-59.9, adult: Code(s): E66.01 - Morbid (severe) obesity due to excess calories; Z68.43 - Body mass index [BMI] 50.0-59.9, adult Status: Acute Plan 77 y/o male hospital day #6 for myasthenic crisis, intubated on admission to [facility], just extubated 05/15, being evaluated for possible IRF placement. -Febrile, afib with RVR per chart review this morning. SR now on amiodarone, anticoagulated with Eliquis. -At this time is not medically ready for transition to IRF and cannot tolerate 3hours of therapy daily, just extubated and cleared by RN only for bed-level therapy. He was able to participate with range of motion, PT / OT at bedside. Eyes closed most of session. -Hopefully can progress over next several days and be able to tolerate IRF leveltherapy when medically stable for discharge, family prefers [facility] [place] as backup plan if LTACH not required. -Reviewed Neurology note, does not appear would require transfer to tertiary center at this time. -Will follow daily for updated progress. Plan: I completed a substantive portion of this encounter, the medical decision makingportion of this note in its entirety, including Allied health note review, nursing note review, behavioral health consultant note review, discussion with nursing and case management, and more than 50% of my time was spent on counseling and coordination of care, time spent 65 minutes Patient was personally seen by me, Dr. Grover, on the day of encounter, reviewed the history and the relevant portions of the chart, including current orders, allied health and behavioral health consultant notes, labs/imaging and performed garcia elements of exam and I formulated the plan of care and facilitated the medical decision making. Documented By: Silvestre Grover MD 05/16/23 1208 Signed By: <Electronically signed by Silvestre Grover MD> 05/16/23 1513 [facility] Work Phone: 1(281) 605-731509-26-2023 Progress note Author Jamel Packer [facility] May 16, 2023 2:29pm Note Date/Time May 16, 2023 2:29pm [facility] [address] [place] [address] Neurology Progress Note Signed Patient: Taurus Garcia MR#: [id number] : 1945 Acct:[id number] Age/Sex: 77 / M Adm Date: 3 Loc: Room: [address] [place] [address] Type: ADM IN Attending Dr: Suraj Razo MD Copies to: ~ Date of Service: 05/16/2023 Exam Physical Exam Vital Signs: Temp Pulse Resp BP Pulse Ox O2 Del Method O2 Flow Rate 97.6 F 53 L 18 132/65 95 Nasal Cannula 3 05/16/23 13:00 05/16/23 13:00 05/16/23 13:00 05/16/23 13:00 05/16/23 13:00 05/16/23 13:00 05/16/23 13:00 FiO2 4 05/15/23 18:00 Objective Vital Signs Vital Signs: Vital Signs - 24 hr 05/15/23 15:00 05/15/23 15:00 05/15/23 15:00 Temperature 98.9 F 98.9 F Pulse Rate Pulse Rate [Monitor] 67 Respiratory Rate 17 Blood Pressure Blood Pressure [Left Arm] 151/72 H 02 Sat by Pulse Oximetry 96 Oxygen Delivery Method Mechanical Ventilation Oxygen Flow Rate Fraction of Inspired Oxygen 35 35 05/15/23 16:00 05/15/23 16:00 05/15/23 17:00 Temperature Pulse Rate Pulse Rate [Monitor] 69 68 Respiratory Rate 30 H 20 Blood Pressure Blood Pressure [Left Arm] 156/75 H 160/74 H 02 Sat by Pulse Oximetry 93 L 95 Oxygen Delivery Method Nasal Cannula Nasal Cannula Nasal Cannula Oxygen Flow Rate 4 Fraction of Inspired Oxygen 4 4 05/15/23 16:30 05/15/23 18:00 05/15/23 20:00 Temperature 98.6 F 98.7 F Pulse Rate Pulse Rate [Monitor] 70 133 H Respiratory Rate 18 18 Blood Pressure Blood Pressure [Left Arm] 160/74 H 152/67 H 02 Sat by Pulse Oximetry 95 94 L Oxygen Delivery Method Nasal Cannula Nasal Cannula Nasal Cannula Oxygen Flow Rate 4 4 Fraction of Inspired Oxygen 4 05/15/23 21:48 05/15/23 21:00 05/15/23 22:00 Temperature Pulse Rate 138 H Pulse Rate [Monitor] 138 H 129 H Respiratory Rate 18 18 Blood Pressure 140/65 Blood Pressure [Left Arm] 140/65 103/67 02 Sat by Pulse Oximetry 95 95 Oxygen Delivery Method Nasal Cannula Nasal Cannula Oxygen Flow Rate 4 4 Fraction of Inspired Oxygen 05/15/23 20:00 05/15/23 23:00 05/16/23 00:00 Temperature Pulse Rate Pulse Rate [Monitor] 138 H Respiratory Rate 20 Blood Pressure Blood Pressure [Left Arm] 131/74 02 Sat by Pulse Oximetry 96 Oxygen Delivery Method Nasal Cannula Nasal Cannula Nasal Cannula Oxygen Flow Rate 4 4 4 Fraction of Inspired Oxygen 05/16/23 00:00 05/16/23 00:00 05/16/23 01:00 Temperature 100.1 F H Pulse Rate Pulse Rate [Monitor] 140 H 140 H Respiratory Rate 22 22 Blood Pressure Blood Pressure [Left Arm] 128/68 141/71 H 02 Sat by Pulse Oximetry 95 96 Oxygen Delivery Method Nasal Cannula Nasal Cannula Nasal Cannula Oxygen Flow Rate 4 4 4 Fraction of Inspired Oxygen 05/16/23 02:00 05/16/23 02:45 05/16/23 03:00 Temperature 99.6 F H Pulse Rate 141 H Pulse Rate [Monitor] 141 H 74 Respiratory Rate 22 18 Blood Pressure Blood Pressure [Left Arm] 150/72 H 136/63 02 Sat by Pulse Oximetry 96 96 Oxygen Delivery Method Nasal Cannula Nasal Cannula Oxygen Flow Rate 4 4 Fraction of Inspired Oxygen 05/16/23 05:07 05/16/23 04:00 05/16/23 04:00 Temperature Pulse Rate 75 Pulse Rate [Monitor] 74 Respiratory Rate 19 Blood Pressure 149/67 H Blood Pressure [Left Arm] 144/66 H 02 Sat by Pulse Oximetry 97 Oxygen Delivery Method Nasal Cannula Nasal Cannula Oxygen Flow Rate 4 4 Fraction of Inspired Oxygen 05/16/23 05:00 05/16/23 06:00 05/16/23 07:00 Temperature 101.7 F H 102.7 F H 102.2 F H Pulse Rate Pulse Rate [Monitor] 73 73 68 Respiratory Rate 24 18 16 Blood Pressure Blood Pressure [Left Arm] 149/67 H 175/78 H 169/70 H 02 Sat by Pulse Oximetry 96 98 96 Oxygen Delivery Method Nasal Cannula Nasal Cannula Nasal Cannula Oxygen Flow Rate 4 4 4 Fraction of Inspired Oxygen 05/16/23 08:00 05/16/23 09:00 05/16/23 08:00 Temperature 100.9 F H 100.7 F H Pulse Rate Pulse Rate [Monitor] 125 H 110 H Respiratory Rate 16 19 Blood Pressure Blood Pressure [Left Arm] 157/67 H 165/68 H 02 Sat by Pulse Oximetry 97 97 Oxygen Delivery Method Nasal Cannula Nasal Cannula Nasal Cannula Oxygen Flow Rate 4 4 4 Fraction of Inspired Oxygen 05/16/23 08:00 05/16/23 10:00 05/16/23 11:00 Temperature 100.1 F H 98.9 F Pulse Rate Pulse Rate [Monitor] 99 H 77 Respiratory Rate 15 21 Blood Pressure Blood Pressure [Left Arm] 124/54 L 117/63 02 Sat by Pulse Oximetry 97 96 Oxygen Delivery Method Nasal Cannula Nasal Cannula Nasal Cannula Oxygen Flow Rate 4 4 4 Fraction of Inspired Oxygen 05/16/23 12:00 05/16/23 13:00 Temperature 97.8 F 97.6 F Pulse Rate Pulse Rate [Monitor] 54 L 53 L Respiratory Rate 20 18 Blood Pressure Blood Pressure [Left Arm] 129/68 132/65 02 Sat by Pulse Oximetry 96 95 Oxygen Delivery Method Nasal Cannula Nasal Cannula Oxygen Flow Rate 3 3 Fraction of Inspired Oxygen Labs 05/16/23 03:53 05/16/23 03:53 Therapy Recommendations Therapy Recommendations: ST Recommendations Level of Supervision 1:1 Feeding Supervision Liquid Consistency [place]-Thick Liquids Recommendation Solid Consistency Pureed Solids Recommendations Meat Consistency Pureed Meats Recommendations Medication Administration Crush Pills,Give Pills in Applesauce Dysphagia Swallow Precautions/ Sitting Upright (90 deg),Small Bites/Sips, Strategies Liquids via Spoon,Pacing/Slow-Rate ST Recommended Services at 13/03 Supervision Discharge Assessment/Plan (1) Myasthenic crisis: Assessment/Problem Details: CONSULT REASON: Exacerbation of myasthenia gravis, myasthenic crisis SUBJECTIVE: Successfully extubated yesterday afternoon around 4 PM (May 15, 2023). Has been maintaining his baseline oxygen saturations. Work of breathing appearsacceptable. He still complains of mild shortness of breath. He has diffuse profound weakness in his limbs. No disconjugate gaze or diplopia. Nothing elseto add to review of systems. Still requiring fever abatement measures. Fever as high as 102.7 early this morning. EXAMINATION: Reclined in ICU bed. Spontaneously awake. Readily attempts to follow commands. Can hardly lift arms or legs. Upgaze is seemingly limited as well. Pupils arebaseline, with mild anisocoria previously documented. Gaze appears conjugate. No significant increased work of breathing. Nasal cannula in place. Speech is fluent and nondysarthric, though spoken sentences are short. Normal deep tendonreflexes of bilateral upper extremities and at the patella bilaterally. DATA REVIEW: -MRI brain February 28, 2018 unremarkable for acute process ASSESSMENT: Myasthenic crisis, now status post a 5-day course of a total of 2 g/kg IVIG as well as 5 days of prednisone 60 mg. Now extubated and work of breathing seems adequate. However, he has severe weakness in all limbs. Do not suspect acute inflammatory demyelinating polyradiculoneuropathy as he maintains adequate muscle stretch reflexes. Still intermittently febrile. Home myasthenia gravis medications were prednisone 10 mg daily and pyridostigmine 60 mg 4 times daily. PLAN: 1. Decreasing prednisone back to home dose of 10 mg daily 2. Continue the pyridostigmine at 60 mg 3 times daily (home dose was 60 mg 4 times daily); currently without any significant secretion issues 3. Checking a CK Code(s): G70.01 - Myasthenia gravis with (acute) exacerbation Status: Acute Documented By: Jamel Packer DO 05/16/23 141 Signed By: <Electronically signed by Jamel Packer DO> 05/16/23 142 [facility] Work Phone: 1(842) 366-375909-26-2023 Progress note Author Suraj Razo [facility] May 16, 2023 1:53pm Note Date/Time May 16, 2023 1:53pm [facility] [address] [place] [address] Hospitalist Progress Note Signed Patient: Taurus Garcia MR#: [id number] : 1945 Acct:[id number] Age/Sex: 77 / M Adm Date: 3 Loc: Room: [address] [place] [address] Type: ADM IN Attending Dr: Suraj Razo MD Copies to: ~ Date of Service: 05/16/2023 Subjective Subjective Narrative: Assessment And Plan 77M with PMH of HTN, HLD, Myasthenia Gravis (Dx 2016), CKD, PE(On Eliquis) who was admitted to [facility] 05/09 for generalized weakness. He was intubated there then transferred for the evaluation and treatment of suspected acute myasthenia gravis exacerbation. Acute Respiratory Failure due to Myasthenia gravis exacerbation Seen and examined s/p extubation yesterday Clinically stable Still febrile Blood cultures are negative Sputum cultures are negative Passed swallow eval PT/OT Referral to acute rehab Myasthenia gravis exacerbation Completed IVIG Continue with prednisone orally Continue with pyridostigmine Pulmonary embolism: On Eliquis p.o. twice daily Drug induced Hypotension Resolved Drug induced Sinus Bradycardia Resolved Afib with RVR Had episode of Afib with RVR Started on Amiodarone infusion Now on sinus rhythm Eliquis Discussed with his at bedside' Discussed with nursing staff DC planning: Acute rehab Exam Physical Exam Vital Signs: Temp Pulse Resp BP Pulse Ox O2 Del Method O2 Flow Rate 97.6 F 53 L 18 132/65 95 Nasal Cannula 3 05/16/23 13:00 05/16/23 13:00 05/16/23 13:00 05/16/23 13:00 05/16/23 13:00 05/16/23 13:00 05/16/23 13:00 FiO2 4 05/15/23 18:00 Narrative: General patient laying in bed in no acute distress alert awake oriented x3 HEENT PERRLA Neck supple no JVD no carotid bruit CVS S1-S2 regular rate and rhythm no murmur no gallop Chest clear to auscultation percussion Abdomen soft bowel sounds normoactive no rebound no guarding Extremities no stenosis no clubbing no edema Musculoskeletal exam normal no joint effusion Neurologic exam oriented x3 alert awake no focal left Psychiatry: Normal insight and judgment Objective Lab Results 05/16/23 03:53 05/16/23 03:53 Microbiology Results Microbiology 05/12/23 07:34 Blood - Left Hand Blood Culture - Final Staphylococcus sp coag neg 05/12/23 07:34 Blood - Left Hand Bacterial ID (NA Multiplex Assay) - Final 05/12/23 07:39 Blood - Other Blood Culture - Preliminary No Growth 4 Days Meds Allergies and Active Meds Allergies No Known Allergies Allergy (Verified 12/27/17 16:51) Active Meds: Active Medications Generic Name Dose Route Start Last Admin Trade Name Jana PRN Reason Stop Dose Admin Acetaminophen 650 mg 05/11/23 01:00 05/16/23 09:25 Acetaminophen 325 Mg Tablet PO 05/10/24 00:59 650 mg Q6HR PRN Administration Pain Scale 1 - 3 or fever Albuterol 2.5 mg 05/15/23 15:57 Albuterol Neb 2.5 Mg/3 Ml Vial.Neb INHALATION 05/14/24 15:56 Q3H PRN Shortness Of Breath Apixaban 5 mg 05/11/23 09:00 05/16/23 09:25 Apixaban 5 Mg Tablet PO 05/10/24 08:59 5 mg BID DORI Administration Atorvastatin Calcium 20 mg 05/11/23 22:00 05/15/23 21:49 Atorvastatin 20 Mg Tablet PO 05/10/24 21:59 Not Given HS DORI Dextrose 0 gm 05/11/23 09:43 Dextrose 50% In Water 25 Gm/50 Ml Syringe IV-PUSH 05/10/24 09:42 PRN PRN Hypoglycemia Furosemide 20 mg 05/11/23 11:45 05/12/23 08:39 Furosemide 20 Mg Tablet PO 05/10/24 11:44 20 mg DAILY DORI Administration Hydralazine HCl 50 mg 05/11/23 11:45 05/16/23 09:25 Hydralazine 50 Mg Tablet PO 05/10/24 11:44 50 mg BID DORI Administration Amiodarone HCl 450 mg/ 250 mls @ 16.667 mls/hr 05/15/23 21:00 05/16/23 11:00 Dextrose IV 05/15/24 20:59 0.5 mg/min .Q15H DORI 16.67 mls/hr Titration Protocol 0.5 MG/MIN Insulin Aspart 0 units 05/11/23 12:00 05/16/23 13:24 Insulin Aspart 300 Units/3 Ml Insuln.Pen SUBCUT 05/10/24 11:59 2 units Q6HR DORI Administration Protocol Lisinopril 20 mg 05/11/23 11:45 05/12/23 08:39 Lisinopril 20 Mg Tablet PO 05/10/24 11:44 20 mg DAILY DORI Administration Loratadine 10 mg 05/12/23 09:00 05/16/23 09:25 Loratadine 10 Mg Tablet PO 05/11/24 08:59 10 mg DAILY DORI Administration Methylprednisolone Sodium Succinate 40 mg 05/16/23 09:00 05/16/23 09:26 Methylprednisolone Sod Succ 40 Mg/Ml Vial IV-PUSH 05/15/24 08:59 40 mg DAILY DORI Administration Nebivolol 10 mg 05/11/23 11:45 05/12/23 08:39 Nebivolol 5 Mg Tablet PO 05/10/24 11:44 10 mg DAILY DORI Administration Pantoprazole Sodium 40 mg 05/11/23 09:00 05/16/23 09:26 Pantoprazole 40 Mg Vial IV-PUSH 05/10/24 08:59 40 mg DAILY DORI Administration Prednisone 60 mg 05/11/23 09:00 05/15/23 09:07 Prednisone 20 Mg Tablet PO 05/10/24 08:59 60 mg DAILY DORI Administration Pyridostigmine [place] 60 mg 05/15/23 22:00 05/16/23 09:25 Pyridostigmine [place] 60 Mg Tablet NG-TUBE 05/14/24 21:59 60 mg TID DORI Administration Sodium Chloride 10 ml 05/11/23 01:30 05/15/23 18:39 Sodium Chloride 0.9 % 10 Ml Syringe IV-PUSH 05/10/24 01:29 10 ml PRN PRN Administration Flush Sodium Chloride 10 ml 05/11/23 01:30 05/15/23 08:57 Sodium Chloride 0.9 % 10 Ml Vial.Pf INJECTION 05/10/24 01:29 10 ml PRN PRN Administration Dilution Sterile Water 1 ml 05/16/23 09:00 05/16/23 09:26 Water For Injection,Sterile 10 Ml Vial INJECTION 05/15/24 08:59 1 ml DAILY DORI Administration A&P - Hospitalist Assessment/Plan (1) Acute exacerbation of myasthenia gravis: (2) Acute respiratory failure with hypoxia: (3) CKD (chronic kidney disease) stage 3, GFR 30-59 ml/min: Plan . Documented By: Suraj Razo MD 05/16/23 1349 Signed By: <Electronically signed by Suraj Razo MD> 05/16/23 1353 [facility] Work Phone: [phone]) [phone] Progress note Author Stanley Burt [facility] May 16, 2023 11:27am Note Date/Time May 16, 2023 11:27am [facility] [address] [place] [address] Pulmonology Progress Note Signed Patient: Taurus Garcia MR#: [id number] : 1945 Acct:[id number] Age/Sex: 77 / M Adm Date: 3 Loc: Room: [address] [place] [address] Type: ADM IN Attending Dr: Suraj Razo MD Copies to: ~ Date of Service: 05/16/2023 Subjective Subjective Narrative: Patient was extubated yesterday at 1600. Patient had runs of A-fib RVR last night and was started on amiodarone. Patient also had a temperature of 101.7 and was placed back on the [facility] sun to cool. [facility] sun temperature currentlyreads 102.3. Patient is awake and alert. He denies any pain. He does complain of some difficulty breathing. Patient is in a-fib RVR on exam Exam Physical Exam Vital Signs: Temp Pulse Resp BP Pulse Ox O2 Del Method O2 Flow Rate 102.2 F H 68 16 169/70 H 96 Nasal Cannula 4 05/16/23 07:00 05/16/23 07:00 05/16/23 07:00 05/16/23 07:00 05/16/23 07:00 05/16/23 07:00 05/16/23 07:00 FiO2 4 05/15/23 18:00 Const General: cooperative Nutritional Appearance: obese Orientation: alert and awake HEENT Head: normal to inspection Nose: external nose normal Neck Neck: normal visual inspection Resp Effort & Inspection: uses accessory muscles Auscultation: clear to auscultation bilaterally, diminished lung sounds, no rales, no rhonchi and no wheezes Cardio Rate: tachycardic Rhythm: abnormal rhythm irregularly irregular Heart Sounds: S1 normal and S2 normal Pulses: radial pulses present GI Palpation: soft and no hepatosplenomegaly Other: harrell catheter in place Skin General: no rashes or lesions noted Objective Intake and Output I&O - Last 24 Hours: Intake & Output 05/15/23 05/15/23 05/16/23 15:59 23:59 07:59 Intake Total 1028 / 1832 250 / 250 Output Total 2075 / 4175 2100 / 4175 450 / 450 Balance -1047 / -2343 -2100 / -2343 -200 / -200 Weight 155 kg 153.6 kg Labs 05/15/23 04:30 05/15/23 20:02 Microbiology Micro: Microbiology 05/12/23 07:39 Blood Culture - Preliminary Blood - Other No Growth 4 Days 05/12/23 07:34 Blood Culture - Preliminary Blood - Left Hand Staphylococcus sp coag neg Bacterial ID (NA Multiplex Assay) - Final Assessment/Plan Assessment/Plan (1) Acute respiratory failure with hypoxia: (2) Myasthenic crisis: (3) Obstructive sleep apnea: (4) CKD (chronic kidney disease) stage 3, GFR 30-59 ml/min: Plan Hospital day #6 for patient with history of myasthenia gravis. Patient was extubated yesterday at 1600.? Patient is currently on 4 L at 97%. Due to patient's atrial fibrillation with RVR, patient was started on amiodarone. Patient will need swallow evaluation and will be given Lovenox for DVT prophylaxis. Patient will also be given IV methylprednisolone 40mg. Echo and TSH will be completed to look for possible causes of atrial fibrillation. Blood cultures were repeated. Case discussed and patient seen on rounds in conjunction with student Dr. Kimball. Patient was interviewed and examined. Vital signs and labs were reviewed. Exam is as noted above. I agree with the note above. Patient tolerated extubation yesterday and with some initial difficulty managing secretions and has done well overnight without significant retained airway secretions on exam. Patient remains awake, alert, and appropriately conversant. He has been cleared for oral intake though with modified diet. Patient did have episodes of atrial fibrillation with rapid ventricular response which was unresponsive to beta-ha with patient started on an amiodarone infusion. Aswe will be able to resume medications including beta-ha we may be able to wean off amiodarone from a rate control perspective. Patient was given 1 dose of IV steroid as well as a subcutaneous dose of enoxaparin for full anticoagulation prior to patient being cleared for oral intake. We can resume prednisone tomorrow and apixaban later this evening. We will await echocardiogram and work-up for atrial fibrillation. Consider cardiology consultation. Continue aggressive measures to clear secretions. Documented By: Stanley Burt MD 3 1353 Signed By: <Electronically signed by MD Stanley Burt> 05/16/23 1121 [facility] Work Phone: 1(791) 379-632009-25-2023 Progress note Author Jamel Packer [facility] May 15, 2023 1:56pm Note Date/Time May 15, 2023 1:54pm [facility] [address] [place] [address] Neurology Progress Note Signed Patient: Taurus Garcia MR#: [id number] : 1945 Acct:[id number] Age/Sex: 77 / M Adm Date: 3 Loc: Room: 65 [place] [address] Type: ADM IN Attending Dr: Suraj Razo MD Copies to: ~ Date of Service: 05/15/2023 Exam Physical Exam Vital Signs: Temp Pulse Resp BP Pulse Ox O2 Del Method FiO2 97.8 F 61 12 133/63 94 L Mechanical Ventilation 35 05/15/23 13:00 05/15/23 13:20 05/15/23 13:00 05/15/23 13:20 05/15/23 13:00 05/15/23 13:00 05/15/23 13:00 Objective Vital Signs Vital Signs: Vital Signs - 24 hr 05/14/23 14:00 05/14/23 14:00 05/14/23 15:00 Temperature 98.4 F Pulse Rate Pulse Rate [Monitor] 60 Respiratory Rate 16 Blood Pressure Blood Pressure [Left Arm] 134/64 02 Sat by Pulse Oximetry 95 Oxygen Delivery Method Mechanical Ventilation Fraction of Inspired Oxygen 35 35 35 05/14/23 15:00 05/14/23 16:00 05/14/23 16:00 Temperature 98.8 F Pulse Rate Pulse Rate [Monitor] 62 Respiratory Rate 16 Blood Pressure Blood Pressure [Left Arm] 131/66 02 Sat by Pulse Oximetry 95 Oxygen Delivery Method Mechanical Ventilation Mechanical Ventilation Fraction of Inspired Oxygen 35 35 35 05/14/23 16:00 05/14/23 17:00 05/14/23 17:00 Temperature 99.1 F H 99.4 F H Pulse Rate Pulse Rate [Monitor] 64 64 Respiratory Rate 16 16 Blood Pressure Blood Pressure [Left Arm] 133/66 134/64 02 Sat by Pulse Oximetry 96 94 L Oxygen Delivery Method Mechanical Ventilation Mechanical Ventilation Fraction of Inspired Oxygen 35 35 35 05/14/23 16:14 05/14/23 17:27 05/14/23 18:35 Temperature Pulse Rate 61 63 63 Pulse Rate [Monitor] Respiratory Rate 16 Blood Pressure 133/64 133/64 Blood Pressure [Left Arm] 02 Sat by Pulse Oximetry Oxygen Delivery Method Fraction of Inspired Oxygen 35 05/14/23 18:00 05/14/23 18:00 05/14/23 19:00 Temperature 99.4 F H 98.6 F Pulse Rate Pulse Rate [Monitor] 65 Respiratory Rate 16 Blood Pressure Blood Pressure [Left Arm] 130/63 02 Sat by Pulse Oximetry 95 Oxygen Delivery Method Mechanical Ventilation Fraction of Inspired Oxygen 35 35 05/14/23 20:00 05/14/23 19:00 05/14/23 20:00 Temperature 99.9 F H 99.9 F H Pulse Rate Pulse Rate [Monitor] 65 65 Respiratory Rate 16 16 Blood Pressure Blood Pressure [Left Arm] 140/66 02 Sat by Pulse Oximetry 95 95 Oxygen Delivery Method Mechanical Ventilation Mechanical Ventilation Fraction of Inspired Oxygen 35 35 05/14/23 19:00 05/14/23 20:00 05/14/23 21:00 Temperature 100.3 F H Pulse Rate Pulse Rate [Monitor] Respiratory Rate Blood Pressure Blood Pressure [Left Arm] 02 Sat by Pulse Oximetry Oxygen Delivery Method Fraction of Inspired Oxygen 35 35 05/14/23 21:00 05/14/23 21:00 05/14/23 22:21 Temperature 100.3 F H Pulse Rate 70 Pulse Rate [Monitor] 65 Respiratory Rate 16 Blood Pressure 170/100 H Blood Pressure [Left Arm] 171/78 H 02 Sat by Pulse Oximetry 95 Oxygen Delivery Method Mechanical Ventilation Fraction of Inspired Oxygen 35 35 05/14/23 22:46 05/14/23 22:00 05/14/23 22:00 Temperature 100.3 F H Pulse Rate 70 Pulse Rate [Monitor] Respiratory Rate Blood Pressure 170/100 H Blood Pressure [Left Arm] 02 Sat by Pulse Oximetry Oxygen Delivery Method Fraction of Inspired Oxygen 35 05/14/23 22:59 05/14/23 23:00 05/14/23 23:00 Temperature 100.6 F H 100.6 F H Pulse Rate Pulse Rate [Monitor] 71 Respiratory Rate 16 Blood Pressure Blood Pressure [Left Arm] 133/79 02 Sat by Pulse Oximetry 95 Oxygen Delivery Method Mechanical Ventilation Fraction of Inspired Oxygen 35 35 05/15/23 00:00 05/15/23 01:00 05/15/23 00:00 Temperature 100.3 F H 100.1 F H Pulse Rate Pulse Rate [Monitor] Respiratory Rate Blood Pressure Blood Pressure [Left Arm] 02 Sat by Pulse Oximetry Oxygen Delivery Method Fraction of Inspired Oxygen 35 05/15/23 01:00 05/15/23 02:00 05/15/23 02:00 Temperature 100.1 F H Pulse Rate Pulse Rate [Monitor] Respiratory Rate Blood Pressure Blood Pressure [Left Arm] 02 Sat by Pulse Oximetry Oxygen Delivery Method Fraction of Inspired Oxygen 35 35 05/15/23 02:32 05/15/23 02:45 05/15/23 03:00 Temperature Pulse Rate 85 85 Pulse Rate [Monitor] Respiratory Rate Blood Pressure 170/100 H 170/100 H Blood Pressure [Left Arm] 02 Sat by Pulse Oximetry Oxygen Delivery Method Fraction of Inspired Oxygen 35 05/15/23 03:00 05/15/23 01:00 05/15/23 02:00 Temperature 100.4 F H Pulse Rate Pulse Rate [Monitor] 70 74 Respiratory Rate 14 21 Blood Pressure Blood Pressure [Left Arm] 02 Sat by Pulse Oximetry 95 93 L Oxygen Delivery Method Mechanical Ventilation Mechanical Ventilation Fraction of Inspired Oxygen 35 35 05/15/23 03:00 05/14/23 20:00 05/15/23 04:00 Temperature 100.3 F H Pulse Rate Pulse Rate [Monitor] 84 Respiratory Rate 16 Blood Pressure Blood Pressure [Left Arm] 121/92 02 Sat by Pulse Oximetry 90 L Oxygen Delivery Method Mechanical Ventilation Mechanical Ventilation Fraction of Inspired Oxygen 35 35 05/15/23 04:00 05/15/23 04:00 05/15/23 04:00 Temperature 100.3 F H Pulse Rate Pulse Rate [Monitor] 85 Respiratory Rate 17 Blood Pressure Blood Pressure [Left Arm] 120/75 02 Sat by Pulse Oximetry 92 L Oxygen Delivery Method Mechanical Ventilation Mechanical Ventilation Fraction of Inspired Oxygen 35 35 35 05/15/23 04:59 05/15/23 04:59 05/15/23 05:00 Temperature 100.0 F H Pulse Rate 80 80 Pulse Rate [Monitor] Respiratory Rate Blood Pressure 120/75 120/75 Blood Pressure [Left Arm] 02 Sat by Pulse Oximetry Oxygen Delivery Method Fraction of Inspired Oxygen 05/15/23 05:00 05/15/23 05:00 05/15/23 05:47 Temperature 100.0 F H Pulse Rate 76 Pulse Rate [Monitor] 81 Respiratory Rate 16 19 Blood Pressure Blood Pressure [Left Arm] 144/67 H 02 Sat by Pulse Oximetry 93 L Oxygen Delivery Method Mechanical Ventilation Fraction of Inspired Oxygen 35 35 35 05/15/23 01:15 05/14/23 21:45 05/15/23 06:00 Temperature 99.8 F H Pulse Rate 77 80 Pulse Rate [Monitor] Respiratory Rate 16 18 Blood Pressure Blood Pressure [Left Arm] 02 Sat by Pulse Oximetry Oxygen Delivery Method Fraction of Inspired Oxygen 35 35 05/15/23 06:00 05/15/23 06:00 05/15/23 07:00 Temperature 99.8 F H 99.2 F H Pulse Rate Pulse Rate [Monitor] 75 Respiratory Rate 19 Blood Pressure Blood Pressure [Left Arm] 147/57 H 02 Sat by Pulse Oximetry 94 L Oxygen Delivery Method Mechanical Ventilation Fraction of Inspired Oxygen 35 35 05/15/23 07:00 05/15/23 07:00 05/15/23 07:30 Temperature 99.2 F H Pulse Rate 71 Pulse Rate [Monitor] 64 Respiratory Rate 16 Blood Pressure 108/55 L Blood Pressure [Left Arm] 108/55 L 02 Sat by Pulse Oximetry 96 Oxygen Delivery Method Mechanical Ventilation Fraction of Inspired Oxygen 35 35 05/15/23 07:53 05/15/23 07:54 05/15/23 08:00 Temperature Pulse Rate 71 Pulse Rate [Monitor] Respiratory Rate Blood Pressure 108/55 L Blood Pressure [Left Arm] 02 Sat by Pulse Oximetry Oxygen Delivery Method Mechanical Ventilation Fraction of Inspired Oxygen 35 35 05/15/23 08:00 05/15/23 08:00 05/15/23 08:38 Temperature 98.8 F 98.8 F Pulse Rate 78 Pulse Rate [Monitor] 62 Respiratory Rate 15 20 Blood Pressure Blood Pressure [Left Arm] 118/56 L 02 Sat by Pulse Oximetry 94 L Oxygen Delivery Method Mechanical Ventilation Fraction of Inspired Oxygen 35 35 05/15/23 09:00 05/15/23 09:00 05/15/23 09:00 Temperature 98.2 F 98.2 F Pulse Rate Pulse Rate [Monitor] 60 Respiratory Rate 16 Blood Pressure Blood Pressure [Left Arm] 99/52 L 02 Sat by Pulse Oximetry 95 Oxygen Delivery Method Mechanical Ventilation Fraction of Inspired Oxygen 35 35 05/15/23 09:59 05/15/23 10:00 05/15/23 10:00 Temperature 97.4 F L Pulse Rate 66 Pulse Rate [Monitor] Respiratory Rate Blood Pressure 117/63 Blood Pressure [Left Arm] 02 Sat by Pulse Oximetry Oxygen Delivery Method Fraction of Inspired Oxygen 35 05/15/23 10:00 05/15/23 11:00 05/15/23 11:00 Temperature 97.4 F L 97.0 F L Pulse Rate Pulse Rate [Monitor] 58 L Respiratory Rate 12 Blood Pressure Blood Pressure [Left Arm] 138/73 02 Sat by Pulse Oximetry 95 Oxygen Delivery Method Mechanical Ventilation Fraction of Inspired Oxygen 35 35 05/15/23 11:00 05/15/23 12:00 05/15/23 12:00 Temperature 96.8 F L 97.4 F L Pulse Rate Pulse Rate [Monitor] 56 L 67 Respiratory Rate 12 15 Blood Pressure Blood Pressure [Left Arm] 121/58 L 106/56 L 02 Sat by Pulse Oximetry 95 94 L Oxygen Delivery Method Mechanical Ventilation Mechanical Ventilation Fraction of Inspired Oxygen 35 35 35 05/15/23 12:00 05/15/23 12:00 05/15/23 12:03 Temperature 97.6 F Pulse Rate 66 Pulse Rate [Monitor] Respiratory Rate 15 Blood Pressure Blood Pressure [Left Arm] 02 Sat by Pulse Oximetry Oxygen Delivery Method Mechanical Ventilation Fraction of Inspired Oxygen 35 35 05/15/23 13:00 05/15/23 13:00 05/15/23 13:00 Temperature 97.8 F 97.8 F Pulse Rate Pulse Rate [Monitor] 60 Respiratory Rate 12 Blood Pressure Blood Pressure [Left Arm] 133/63 02 Sat by Pulse Oximetry 94 L Oxygen Delivery Method Mechanical Ventilation Fraction of Inspired Oxygen 35 35 05/15/23 10:27 05/15/23 13:20 Temperature Pulse Rate 61 61 Pulse Rate [Monitor] Respiratory Rate Blood Pressure 133/63 133/63 Blood Pressure [Left Arm] 02 Sat by Pulse Oximetry Oxygen Delivery Method Fraction of Inspired Oxygen Labs 05/15/23 04:30 05/15/23 04:30 Assessment/Plan (1) Myasthenic crisis: Assessment/Problem Details: CONSULT REASON: Exacerbation of myasthenia gravis, myasthenic crisis SUBJECTIVE: Some low-grade fevers again. Remains intubated. Cannot obtain review of systems. EXAMINATION: Intubated. Sedation briefly held. Closes eyes to command. Squeezes hand weakly to command. Breathing over the set ventilatory rate. Nursing staff notes that when sedation is held for more prolonged period of time he awakens and follows commands. Mild anisocoria, both pupils very small early pinpoint but right pupil 0.5 mm larger than left. Hypoactive reflexes. No pathologic reflexes. DATA REVIEW: -MRI brain February 28, 2018 unremarkable for acute process ASSESSMENT: Myasthenic crisis. Remains intubated. Recent fevers without discovery of any definitive underlying infectious process. Home myasthenia gravis medications were prednisone 10 mg daily and pyridostigmine 60 mg 4 times daily. PLAN: 1. IVIG, 2 g/kg course over 5 days (0.4 g/kg/day), today is day 5 2. Increased home prednisone 10 mg daily to prednisone 60 mg daily via NG/OG, today is day 5 3. Increasing pyridostigmine from 30 mg 3 times daily to 60 mg 3 times daily (home dose was 60 mg 4 times daily) 4. Depending on how he does with spontaneous respiratory trials, he may need transferred to another institution for plasmapheresis Code(s): G70.01 - Myasthenia gravis with (acute) exacerbation Status: Acute Documented By: Jamel Packer DO 05/15/23 1349 Signed By: <Electronically signed by Jamel Packer DO> 05/15/23 3873 [facility] Work Phone: 1([phone]) 606-342009-25-2023 Progress note Author Suraj Razo [facility] May 15, 2023 12:28pm Note Date/Time May 15, 2023 12:25pm [facility] [address] [place] [address] Hospitalist Progress Note Signed Patient: Taurus Garcia MR#: [id number] : 1945 Acct:[id number] Age/Sex: 77 / M Adm Date: 3 Loc: Room: [address] [place] [address] Type: ADM IN Attending Dr: Suraj Razo MD Copies to: ~ Date of Service: 05/15/2023 Subjective Subjective Narrative: Assessment And Plan 77M with PMH of HTN, HLD, Myasthenia Gravis (Dx 2016), CKD, PE(On Eliquis) who was admitted to [facility] 05/09 for generalized weakness. He was intubated there then transferred for the evaluation and treatment of suspected acute myasthenia gravis exacerbation. Acute Respiratory Failure due to Myasthenia gravis exacerbation Seen and examined Still intubated and sedated On mechanical vent Sedated by propofol Febrile with temperature 103.8 No leukocytosis Blood cultures are negative Sputum cultures are negative Cooling system was applied On an IV immunoglobulin ICU team is following Plan for weaning trial after the last dose of IVIG Myasthenia gravis exacerbation On IVIG Continue with prednisone orally Continue with pyridostigmine Pulmonary embolism: On Eliquis p.o. twice daily Drug induced Hypotension Resolved Drug induced Sinus Bradycardia Resolved Discussed with his at bedside' Discussed with nursing staff Exam Physical Exam Vital Signs: Temp Pulse Resp BP Pulse Ox O2 Del Method FiO2 96.8 F L 56 L 12 121/58 L 95 Mechanical Ventilation 35 05/15/23 11:00 05/15/23 11:00 05/15/23 11:00 05/15/23 11:00 05/15/23 11:00 05/15/23 11:00 05/15/23 11:00 Objective Lab Results 05/15/23 04:30 05/15/23 04:30 Microbiology Results Microbiology 05/12/23 07:39 Blood - Other Blood Culture - Preliminary No Growth 3 Days 05/12/23 07:34 Blood - Left Hand Blood Culture - Preliminary Presumptive Coag Neg. Staph 05/12/23 07:34 Blood - Left Hand Bacterial ID (NA Multiplex Assay) - Final 05/12/23 10:00 [place] Urine Culture - Final No Growth 2 Days 05/12/23 12:25 Sputum - Endotrachael Aerobic Culture - Final Light Normal Respiratory Gee 2 Days 05/12/23 12:25 Sputum - Endotrachael Gram Stain - Final ABG Interpretation ABG results: 05/15/23 05:56 ABG pH 7.45 ABG pCO2 50.8 H* ABG pO2 60.0 L ABG HCO3 34.8 H ABG Total CO2 36.3 H ABG O2 Saturation 92.2 L ABG O2 Content 7.9 ABG Base Excess 9.2 H Meds Allergies and Active Meds Allergies No Known Allergies Allergy (Verified 12/27/17 16:51) Active Meds: Active Medications Generic Name Dose Route Start Last Admin Trade Name Freq PRN Reason Stop Dose Admin Acetaminophen 650 mg 05/11/23 01:00 05/15/23 05:51 Acetaminophen 325 Mg Tablet PO 05/10/24 00:59 650 mg Q6HR PRN Administration Pain Scale 1 - 3 or fever Albuterol 6 puff 05/11/23 06:00 05/15/23 11:37 Albuterol Hfa 200 Puff/18 Gm Inhaler VENT 05/10/24 05:59 6 puff Q6HR DORI Administration Apixaban 5 mg 05/11/23 09:00 05/15/23 08:57 Apixaban 5 Mg Tablet PO 05/10/24 08:59 5 mg BID DORI Administration Atorvastatin Calcium 20 mg 05/11/23 22:00 05/14/23 21:14 Atorvastatin 20 Mg Tablet PO 05/10/24 21:59 20 mg HS DORI Administration Chlorhexidine Gluconate 15 ml 05/11/23 09:00 05/15/23 08:57 Chlorhexidine Gluconate 0.12% 15 Ml Udc MUCOUS MEM 05/10/24 08:59 15 ml BID DORI Administration Dextrose 0 gm 05/11/23 09:43 Dextrose 50% In Water 25 Gm/50 Ml Syringe IV-PUSH 05/10/24 09:42 PRN PRN Hypoglycemia Furosemide 20 mg 05/11/23 11:45 05/12/23 08:39 Furosemide 20 Mg Tablet PO 05/10/24 11:44 20 mg DAILY DORI Administration Hydralazine HCl 50 mg 05/11/23 11:45 05/15/23 11:31 Hydralazine 50 Mg Tablet PO 05/10/24 11:44 50 mg BID DORI Administration Propofol 1,000 mg in 100 mls @ 44.31 mls/hr 05/11/23 00:45 05/15/23 09:59 Diprivan IV 05/10/24 00:44 40 mcg/kg/min .Q2H16M DORI 35.45 mls/hr Titration Protocol 50 MCG/KG/MIN Immune Globulin 30 gm in 300 mls @ 0 mls/hr 05/11/23 09:00 05/15/23 09:51 Gammagard 10% 30 Gm/300 Ml IV 05/16/23 08:59 295.4 mls/hr DAILY DORI Infusion Protocol Per Protocol Immune Globulin 30 gm in 300 mls @ 0 mls/hr 05/11/23 09:00 05/15/23 10:27 Gammagard 10% 30 Gm/300 Ml IV 05/16/23 08:59 443 mls/hr DAILY DORI Administration Protocol Per Protocol Insulin Aspart 0 units 05/11/23 12:00 05/15/23 12:10 Insulin Aspart 300 Units/3 Ml Insuln.Pen SUBCUT 05/10/24 11:59 2 units Q6HR DORI Administration Protocol Lisinopril 20 mg 05/11/23 11:45 05/12/23 08:39 Lisinopril 20 Mg Tablet PO 05/10/24 11:44 20 mg DAILY DORI Administration Loratadine 10 mg 05/12/23 09:00 05/15/23 08:58 Loratadine 10 Mg Tablet PO 05/11/24 08:59 10 mg DAILY DORI Administration Nebivolol 10 mg 05/11/23 11:45 05/12/23 08:39 Nebivolol 5 Mg Tablet PO 05/10/24 11:44 10 mg DAILY DORI Administration Pantoprazole Sodium 40 mg 05/11/23 09:00 05/15/23 08:57 Pantoprazole 40 Mg Vial IV-PUSH 05/10/24 08:59 40 mg DAILY DORI Administration Prednisone 60 mg 05/11/23 09:00 05/15/23 09:07 Prednisone 20 Mg Tablet PO 05/10/24 08:59 60 mg DAILY DORI Administration Propofol 0 mg 05/11/23 00:23 Propofol - Infusion Bolus 1,000 Mg/100 Ml Vial IV 05/10/24 00:22 PROTOCOL PRN Bolus Documentation Pyridostigmine [place] 30 mg 05/14/23 14:00 05/15/23 08:57 Pyridostigmine [place] 60 Mg Tablet NG-TUBE 05/13/24 13:59 30 mg TID DORI Administration Sodium Chloride 10 ml 05/11/23 01:30 Sodium Chloride 0.9 % 10 Ml Syringe IV-PUSH 05/10/24 01:29 PRN PRN Flush Sodium Chloride 10 ml 05/11/23 01:30 05/15/23 08:57 Sodium Chloride 0.9 % 10 Ml Vial.Pf INJECTION 05/10/24 01:29 10 ml PRN PRN Administration Dilution A&P - Hospitalist Assessment/Plan (1) Acute exacerbation of myasthenia gravis: (2) Acute respiratory failure with hypoxia: (3) CKD (chronic kidney disease) stage 3, GFR 30-59 ml/min: Plan . Documented By: Suraj Razo MD 05/15/23 1221 Signed By: <Electronically signed by Suraj Razo MD> 05/15/23 1228 [facility] Work Phone: [phone]) 533-667609-25-2023 Progress note Author Stanley Burt [facility] May 15, 2023 11:32am Note Date/Time May 15, 2023 11:25am [facility] [address] [place] [address] Pulmonology Progress Note Signed Patient: Taurus Garcia MR#: [id number] : 1945 Acct:[id number] Age/Sex: 77 / M Adm Date: 3 Loc: Room: [address] [place] [address] Type: ADM IN Attending Dr: Suraj Razo MD Copies to: ~ Date of Service: 05/15/2023 Subjective Subjective Narrative: Patient continues to have episodic fevers requiring external cooling with Arcticsun. According to nursing staff patient had periodic runs of atrial fibrillation with RVR but on exam he is in normal sinus rhythm. Exam Physical Exam Vital Signs: Temp Pulse Resp BP Pulse Ox O2 Del Method FiO2 98.2 F 60 16 99/52 L 95 Mechanical Ventilation 35 05/15/23 09:00 05/15/23 09:00 05/15/23 09:00 05/15/23 09:00 05/15/23 09:00 05/15/23 09:00 05/15/23 09:00 Const Nutritional Appearance: obese Orientation: not alert and not awake HEENT Head: normal to inspection, normocephalic and atraumatic Ears: external ears normal Nose: external nose normal Mouth: other (8.0 mm ID ET tube) Eyes Eyelids: eyelids normal Pupils: pinpoint Neck Neck: normal visual inspection and no lymphadenopathy noted Chest Chest palpation & inspection: normal inspection of the chest Resp Auscultation: clear to auscultation bilaterally, no crackles, no rales, no rhonchi and no wheezes Cardio Rate: regular rate Rhythm: regular rhythm Heart Sounds: S1 normal, S2 normal, no gallops, no murmurs and no rubs GI Inspection: normal to inspection Palpation: soft Other: harrell catheter in place Skin General: no rashes or lesions noted (warm and dry) Extrem General: pedal edema Objective Intake and Output I&O - Last 24 Hours: Intake & Output 05/14/23 05/15/23 05/15/23 23:59 07:59 15:59 Intake Total 1200 / 4116 804 / 1204 400 / 1204 Output Total 1800 / 3600 Balance -600 / 516 804 / 1204 400 / 1204 Weight 155 kg 155 kg Labs 05/15/23 04:30 05/15/23 04:30 Microbiology Micro: Microbiology 05/12/23 07:39 Blood Culture - Preliminary Blood - Other No Growth 3 Days 05/12/23 07:34 Blood Culture - Preliminary Blood - Left Hand Presumptive Coag Neg. Staph Bacterial ID (NA Multiplex Assay) - Final 05/12/23 10:00 Urine Culture - Final [place] No Growth 2 Days 05/12/23 12:25 Aerobic Culture - Final Sputum - Endotrachael Light Normal Respiratory Gee 2 Days Gram Stain - Final Imaging and Cardiology Chest x-ray: Status: image reviewed by me Additional comments: Date of Service: 05/15/23 XR/XR chest 1V portable: Ett placement ? Plain film chest single view HISTORY: Daily assessment of ventilated patient COMPARISON: 05/14/2023 FINDINGS: SUPPORT DEVICES:? Tubes unchanged. POSTSURGICAL CHANGES: None HEART:? Within normal limits PULMONARY DEVORA: Within normal limits MEDIASTINUM: Unremarkable LUNGS AND PLEURA:? No acute lung process, pleural effusion or pneumothorax identified.? Continued interstitial prominence. ? BONY STRUCTURES:? Intact ADDITIONAL FINDINGS? None XR/XR chest 1V portable IMPRESSION:? Stable chest ? Additional Results Results Comments: 05/15/23 05:56 ABG pH 7.45 ABG pCO2 50.8 H* ABG pO2 60.0 L ABG HCO3 34.8 H ABG Total CO2 36.3 H ABG O2 Saturation 92.2 L ABG O2 Content 7.9 ABG Base Excess 9.2 H 10/500/35/5 Assessment/Plan Assessment/Plan (1) Acute respiratory failure with hypoxia: (2) Myasthenic crisis: (3) CKD (chronic kidney disease) stage 3, GFR 30-59 ml/min: (4) Obstructive sleep apnea: Plan Hospital day #5, ventilator day #5 for patient with history of myasthenia graviswith history of previous pulmonary embolism who was transferred from [place] with progressive decompensation likely related to myasthenia gravis exacerbation. Today is day 5 #5 medical IV immunoglobulin. Patient is already on apixaban forDVT prophylaxis. Patient is also receiving nutritional support. Continue supportive care. No growth in sputum culture or urine culture. Patient will beattempted to be extubated but may need to be transferred for plasmapheresis. Case discussed and patient seen on rounds in conjunction with Student Dr. Kimball. Patient was examined but is intubated and sedated. Vital signs and labswere reviewed. Exam is notable for 8.0 mm ID ET tube. Lungs are clear without wheeze, rhonchi, nor rales. Cardiovascular exam is regular. Abdomen is soft, nontender. Extremities reveal trace edema. Case was discussed with spouse who is at bedside. I agree with the note above. Patient is noted to have input>output over course of hospital stay with some opacities of the bases whichcould suggest some effusion. We will await last dose of IVIG and plan on weaning trial. We will give the patient a dose of diuretics with diuretics being held with concerns for relative volume overload. Documented By: Stanley Burt MD 3 0913 Signed By: <Electronically signed by MD Stanley Burt> 05/15/23 1136 [facility] Work Phone: [phone]) 443-248309-24-2023 Progress note Author Eliezer Newell [facility] May 14, 2023 6:05pm Note Date/Time May 14, 2023 5:59pm [facility] [address] [place], [place] [id number] Hospitalist Progress Note Signed Patient: Taurus Garcia MR#: [id number] : 1945 Acct:[id number] Age/Sex: 77 / M Adm Date: 3 Loc: Room: [address] [place] [address] Type: ADM IN Attending Dr: Eliezer Newell MD Copies to: ~ Date of Service: 05/14/2023 Subjective Subjective Narrative: Assessment And Plan 77M with PMH of HTN, HLD, Myasthenia Gravis (Dx 2016), CKD, PE(On Eliquis) who was admitted to [facility] 05/09 for generalized weakness. He was intubated there then transferred for the evaluation and treatment of suspected acute myasthenia gravis exacerbation. Acute Respiratory Failure due to Myasthenia gravis exacerbation remain on MV with low O2 demand The patient required intubation at [facility] CXR 05/11 shows Continued cardiomegaly and mild parenchymal changes. Maintain O2 supplement via Mechanical ventilator PPI for GI Prophylaxis Keep head of bed > 30 degree Pulmonary consulted recommendation appreciated Myasthenia gravis exacerbation Agree with IVIG and prednisone Agree with resuming Pyridostigmine Neurology was consulted, recommendation appreciated. Drug induced Hypotension hold lisinopril and Lasix Discontinue Hydrochlorothiazide/triamterene for now Hydralazine PO with holding parameter Drug induced Sinus Bradycardia hold betablcoker INTERVAL HPI: As Above, Pt resting in bed. Sedated and intubated , no more significant hypotension or bradycardia Chronic diseases: Unless mentioned Above, Essential home medications have been continued. DVT Px: Addressed Disposition: To be determined Plan of care Discussed with: the medical team, the Exam Physical Exam Vital Signs: Temp Pulse Resp BP Pulse Ox O2 Del Method FiO2 37.4 C H 64 16 134/64 94 L Mechanical Ventilation 35 05/14/23 17:00 05/14/23 17:00 05/14/23 17:00 05/14/23 17:00 05/14/23 17:00 05/14/23 17:00 05/14/23 17:00 Narrative: GENERAL: on acute stress, Intubated LUNGS: minimal Bibasilar crackles. on MV CARDIAC: normal S1 and S2; no rubs, murmurs, or gallops ABDOMEN: Abdomen soft. BS normal. No palpable masses or organomegaly. EXTREMITIES: no edema in LE bilaterally NEURO: Limited Exam, Sedated and intubated PSYCH: Sedated and intubated Objective Lab Results 05/14/23 06:10 05/14/23 09:14 Microbiology Results Microbiology 05/12/23 07:34 Blood - Left Hand Blood Culture - Preliminary Presumptive Coag Neg. Staph 05/12/23 07:34 Blood - Left Hand Bacterial ID (NA Multiplex Assay) - Final 05/12/23 10:00 [place] Urine Culture - Final No Growth 2 Days 05/12/23 12:25 Sputum - Endotrachael Aerobic Culture - Final Light Normal Respiratory Gee 2 Days 05/12/23 12:25 Sputum - Endotrachael Gram Stain - Final 05/12/23 07:39 Blood - Other Blood Culture - Preliminary No Growth 2 Days Meds Allergies and Active Meds Allergies No Known Allergies Allergy (Verified 12/27/17 16:51) Active Meds: Active Medications Generic Name Dose Route Start Last Admin Trade Name Freq PRN Reason Stop Dose Admin Acetaminophen 650 mg 05/11/23 01:00 05/14/23 16:07 Acetaminophen 325 Mg Tablet PO 05/10/24 00:59 650 mg Q6HR PRN Administration Pain Scale 1 - 3 or fever Albuterol 6 puff 05/11/23 06:00 05/14/23 11:14 Albuterol Hfa 200 Puff/18 Gm Inhaler VENT 05/10/24 05:59 6 puff Q6HR DORI Administration Apixaban 5 mg 05/11/23 09:00 05/14/23 08:16 Apixaban 5 Mg Tablet PO 05/10/24 08:59 5 mg BID DORI Administration Atorvastatin Calcium 20 mg 05/11/23 22:00 05/13/23 23:31 Atorvastatin 20 Mg Tablet PO 05/10/24 21:59 20 mg HS DORI Administration Chlorhexidine Gluconate 15 ml 05/11/23 09:00 05/14/23 08:10 Chlorhexidine Gluconate 0.12% 15 Ml Udc MUCOUS MEM 05/10/24 08:59 15 ml BID DORI Administration Dextrose 0 gm 05/11/23 09:43 Dextrose 50% In Water 25 Gm/50 Ml Syringe IV-PUSH 05/10/24 09:42 PRN PRN Hypoglycemia Furosemide 20 mg 05/11/23 11:45 05/12/23 08:39 Furosemide 20 Mg Tablet PO 05/10/24 11:44 20 mg DAILY DORI Administration Hydralazine HCl 50 mg 05/11/23 11:45 05/14/23 08:09 Hydralazine 50 Mg Tablet PO 05/10/24 11:44 50 mg BID DORI Administration Propofol 1,000 mg in 100 mls @ 44.31 mls/hr 05/11/23 00:45 05/14/23 13:41 Diprivan IV 05/10/24 00:44 30 mcg/kg/min .Q2H16M DORI 26.59 mls/hr Administration Protocol 50 MCG/KG/MIN Lactated Ringer's 1,000 mls @ 75 mls/hr 05/11/23 02:00 05/14/23 17:34 Lactated Ringers IV 05/10/24 01:59 Not Given .[id number] DORI Immune Globulin 30 gm in 300 mls @ 0 mls/hr 05/11/23 09:00 05/14/23 11:26 Gammagard 10% 30 Gm/300 Ml IV 05/16/23 08:59 295 mls/hr DAILY DORI Infusion Protocol Per Protocol Immune Globulin 30 gm in 300 mls @ 0 mls/hr 05/11/23 09:00 05/14/23 12:07 Gammagard 10% 30 Gm/300 Ml IV 05/16/23 08:59 443 mls/hr DAILY DORI Administration Protocol Per Protocol Insulin Aspart 0 units 05/11/23 12:00 05/14/23 17:33 Insulin Aspart 300 Units/3 Ml Insuln.Pen SUBCUT 05/10/24 11:59 2 units Q6HR DORI Administration Protocol Lisinopril 20 mg 05/11/23 11:45 05/12/23 08:39 Lisinopril 20 Mg Tablet PO 05/10/24 11:44 20 mg DAILY DORI Administration Loratadine 10 mg 05/12/23 09:00 05/14/23 08:09 Loratadine 10 Mg Tablet PO 05/11/24 08:59 10 mg DAILY DORI Administration Nebivolol 10 mg 05/11/23 11:45 05/12/23 08:39 Nebivolol 5 Mg Tablet PO 05/10/24 11:44 10 mg DAILY DORI Administration Pantoprazole Sodium 40 mg 05/11/23 09:00 05/14/23 08:10 Pantoprazole 40 Mg Vial IV-PUSH 05/10/24 08:59 40 mg DAILY DORI Administration Prednisone 60 mg 05/11/23 09:00 05/14/23 08:09 Prednisone 20 Mg Tablet PO 05/10/24 08:59 60 mg DAILY DORI Administration Propofol 0 mg 05/11/23 00:23 Propofol - Infusion Bolus 1,000 Mg/100 Ml Vial IV 05/10/24 00:22 PROTOCOL PRN Bolus Documentation Pyridostigmine [place] 30 mg 05/14/23 14:00 05/14/23 13:41 Pyridostigmine [place] 60 Mg Tablet NG-TUBE 05/13/24 13:59 30 mg TID DORI Administration Sodium Chloride 10 ml 05/11/23 01:30 Sodium Chloride 0.9 % 10 Ml Syringe IV-PUSH 05/10/24 01:29 PRN PRN Flush Sodium Chloride 10 ml 05/11/23 01:30 05/12/23 08:40 Sodium Chloride 0.9 % 10 Ml Vial.Pf INJECTION 05/10/24 01:29 10 ml PRN PRN Administration Dilution A&P - Hospitalist Assessment/Plan (1) Acute exacerbation of myasthenia gravis: (2) Acute respiratory failure with hypoxia: (3) CKD (chronic kidney disease) stage 3, GFR 30-59 ml/min: Plan . Documented By: Eliezer Newell MD 05/14/23 0151 Signed By: <Electronically signed by Eliezer Newell MD> 05/14/23 3898 [facility] Work Phone: [phone] 359-196009-24-2023 Progress note Author Jamel Packer [facility] May 14, 2023 12:14pm Note Date/Time May 14, 2023 11:10am [facility] [address] [place] [address] Neurology Progress Note Signed Patient: Taurus Garcia MR#: [id number] : 1945 Acct:[id number] Age/Sex: 77 / M Adm Date: 3 Loc: Room: [address] [place] [address] Type: ADM IN Attending Dr: Eliezer Newell MD Copies to: ~ Date of Service: 05/14/2023 Exam Physical Exam Vital Signs: Temp Pulse Resp BP Pulse Ox O2 Del Method FiO2 96.6 F L 54 L 17 114/56 L 93 L Mechanical Ventilation 35 05/14/23 11:00 05/14/23 11:00 05/14/23 11:00 05/14/23 11:00 05/14/23 11:00 05/14/23 11:00 05/14/23 11:00 Objective Vital Signs Vital Signs: Vital Signs - 24 hr 05/13/23 11:26 05/13/23 11:26 05/13/23 12:00 Temperature Pulse Rate 57 L 57 L Pulse Rate [Monitor] Respiratory Rate Blood Pressure 157/70 H 157/70 H Blood Pressure [Left Arm] 02 Sat by Pulse Oximetry Oxygen Delivery Method Fraction of Inspired Oxygen 30 05/13/23 12:00 05/13/23 12:00 05/13/23 12:07 Temperature 97.8 F Pulse Rate 55 L Pulse Rate [Monitor] 55 L Respiratory Rate 14 12 Blood Pressure Blood Pressure [Left Arm] 135/61 02 Sat by Pulse Oximetry 95 Oxygen Delivery Method Mechanical Ventilation Fraction of Inspired Oxygen 30 30 05/13/23 13:37 05/13/23 13:37 05/13/23 13:00 Temperature 98.4 F Pulse Rate 65 65 Pulse Rate [Monitor] Respiratory Rate Blood Pressure 114/55 L 114/55 L Blood Pressure [Left Arm] 02 Sat by Pulse Oximetry Oxygen Delivery Method Fraction of Inspired Oxygen 05/13/23 13:00 05/13/23 13:00 05/13/23 14:00 Temperature 98.9 F Pulse Rate Pulse Rate [Monitor] 64 Respiratory Rate 13 Blood Pressure Blood Pressure [Left Arm] 114/55 L 02 Sat by Pulse Oximetry 95 Oxygen Delivery Method Mechanical Ventilation Fraction of Inspired Oxygen 30 30 05/13/23 15:00 05/13/23 15:00 05/13/23 15:00 Temperature 98.8 F Pulse Rate Pulse Rate [Monitor] 66 Respiratory Rate 14 Blood Pressure Blood Pressure [Left Arm] 99/50 L 02 Sat by Pulse Oximetry 96 Oxygen Delivery Method Mechanical Ventilation Fraction of Inspired Oxygen 30 30 05/13/23 16:00 05/13/23 16:00 05/13/23 16:00 Temperature 98.9 F Pulse Rate Pulse Rate [Monitor] 64 Respiratory Rate 12 Blood Pressure Blood Pressure [Left Arm] 114/62 02 Sat by Pulse Oximetry 93 L Oxygen Delivery Method Mechanical Ventilation Fraction of Inspired Oxygen 30 30 05/13/23 16:29 05/13/23 16:27 05/13/23 16:38 Temperature Pulse Rate 62 64 64 Pulse Rate [Monitor] Respiratory Rate 15 Blood Pressure 119/56 L 119/56 L Blood Pressure [Left Arm] 02 Sat by Pulse Oximetry Oxygen Delivery Method Fraction of Inspired Oxygen 30 05/13/23 17:00 05/13/23 17:00 05/13/23 17:00 Temperature 99.3 F H Pulse Rate Pulse Rate [Monitor] 65 Respiratory Rate 14 Blood Pressure Blood Pressure [Left Arm] 121/59 L 02 Sat by Pulse Oximetry 93 L Oxygen Delivery Method Mechanical Ventilation Fraction of Inspired Oxygen 30 30 05/13/23 18:00 05/13/23 18:03 05/13/23 18:00 Temperature 99.3 F H Pulse Rate 62 Pulse Rate [Monitor] Respiratory Rate Blood Pressure 146/65 H Blood Pressure [Left Arm] 02 Sat by Pulse Oximetry Oxygen Delivery Method Fraction of Inspired Oxygen 30 05/13/23 18:00 05/13/23 19:00 05/13/23 19:00 Temperature 99.6 F H Pulse Rate Pulse Rate [Monitor] 63 Respiratory Rate 22 Blood Pressure Blood Pressure [Left Arm] 146/65 H 02 Sat by Pulse Oximetry 96 Oxygen Delivery Method Mechanical Ventilation Fraction of Inspired Oxygen 30 30 05/13/23 19:00 05/13/23 20:13 05/13/23 20:00 Temperature Pulse Rate 59 L Pulse Rate [Monitor] 62 64 Respiratory Rate 13 15 15 Blood Pressure Blood Pressure [Left Arm] 158/70 H 162/73 H 02 Sat by Pulse Oximetry 98 94 L Oxygen Delivery Method Mechanical Ventilation Mechanical Ventilation Fraction of Inspired Oxygen 30 30 30 05/13/23 19:40 05/13/23 19:40 05/13/23 21:00 Temperature Pulse Rate 64 64 Pulse Rate [Monitor] 65 Respiratory Rate 15 Blood Pressure 152/69 H 152/69 H Blood Pressure [Left Arm] 142/110 H 02 Sat by Pulse Oximetry 96 Oxygen Delivery Method Mechanical Ventilation Fraction of Inspired Oxygen 30 05/13/23 20:00 05/13/23 21:00 05/13/23 20:00 Temperature 99.9 F H Pulse Rate Pulse Rate [Monitor] Respiratory Rate Blood Pressure Blood Pressure [Left Arm] 02 Sat by Pulse Oximetry Oxygen Delivery Method Fraction of Inspired Oxygen 30 30 05/13/23 21:00 05/13/23 21:55 05/13/23 23:30 Temperature 99.6 F H Pulse Rate 66 Pulse Rate [Monitor] Respiratory Rate Blood Pressure 139/67 Blood Pressure [Left Arm] 02 Sat by Pulse Oximetry Oxygen Delivery Method Fraction of Inspired Oxygen 30 05/13/23 22:54 05/13/23 23:31 05/13/23 23:00 Temperature Pulse Rate 66 66 Pulse Rate [Monitor] Respiratory Rate Blood Pressure 139/67 139/67 Blood Pressure [Left Arm] 02 Sat by Pulse Oximetry Oxygen Delivery Method Fraction of Inspired Oxygen 30 05/13/23 22:00 05/13/23 23:00 05/13/23 22:00 Temperature 99.8 F H 99.4 F H Pulse Rate Pulse Rate [Monitor] 66 Respiratory Rate 15 Blood Pressure Blood Pressure [Left Arm] 157/119 H 02 Sat by Pulse Oximetry 94 L Oxygen Delivery Method Mechanical Ventilation Fraction of Inspired Oxygen 30 05/13/23 23:00 05/14/23 00:07 05/14/23 00:00 Temperature Pulse Rate 69 Pulse Rate [Monitor] 69 Respiratory Rate 16 16 Blood Pressure Blood Pressure [Left Arm] 139/68 02 Sat by Pulse Oximetry 95 Oxygen Delivery Method Mechanical Ventilation Fraction of Inspired Oxygen 30 30 30 05/14/23 01:00 05/14/23 00:00 05/14/23 01:00 Temperature Pulse Rate Pulse Rate [Monitor] 70 74 Respiratory Rate 15 15 Blood Pressure Blood Pressure [Left Arm] 128/78 130/84 02 Sat by Pulse Oximetry 93 L 94 L Oxygen Delivery Method Mechanical Ventilation Mechanical Ventilation Fraction of Inspired Oxygen 30 30 30 05/14/23 02:30 05/14/23 02:15 05/14/23 02:32 Temperature Pulse Rate 77 77 Pulse Rate [Monitor] Respiratory Rate Blood Pressure 135/89 135/89 Blood Pressure [Left Arm] 02 Sat by Pulse Oximetry Oxygen Delivery Method Fraction of Inspired Oxygen 35 05/14/23 02:00 05/14/23 02:00 05/13/23 20:00 Temperature Pulse Rate Pulse Rate [Monitor] 79 Respiratory Rate 16 Blood Pressure Blood Pressure [Left Arm] 135/89 02 Sat by Pulse Oximetry 90 L Oxygen Delivery Method Mechanical Ventilation Mechanical Ventilation Fraction of Inspired Oxygen 30 30 30 05/14/23 00:00 05/14/23 01:00 05/14/23 02:00 Temperature 99.6 F H 99.8 F H 99.6 F H Pulse Rate Pulse Rate [Monitor] Respiratory Rate Blood Pressure Blood Pressure [Left Arm] 02 Sat by Pulse Oximetry Oxygen Delivery Method Fraction of Inspired Oxygen 05/14/23 03:00 05/14/23 03:00 05/14/23 03:00 Temperature 99.4 F H Pulse Rate Pulse Rate [Monitor] 75 Respiratory Rate 17 Blood Pressure Blood Pressure [Left Arm] 136/87 02 Sat by Pulse Oximetry 91 L Oxygen Delivery Method Mechanical Ventilation Fraction of Inspired Oxygen 35 35 05/14/23 03:14 05/14/23 04:00 05/14/23 04:00 Temperature 98.6 F Pulse Rate 76 Pulse Rate [Monitor] Respiratory Rate Blood Pressure 144/79 H Blood Pressure [Left Arm] 02 Sat by Pulse Oximetry Oxygen Delivery Method Fraction of Inspired Oxygen 35 05/14/23 04:00 05/14/23 04:54 05/14/23 04:54 Temperature 98.7 F Pulse Rate 77 77 Pulse Rate [Monitor] 73 Respiratory Rate 16 Blood Pressure 141/99 H 141/99 H Blood Pressure [Left Arm] 140/103 H 02 Sat by Pulse Oximetry 93 L Oxygen Delivery Method Mechanical Ventilation Fraction of Inspired Oxygen 35 05/14/23 05:00 05/14/23 05:00 05/14/23 05:53 Temperature 98.3 F Pulse Rate Pulse Rate [Monitor] 72 Respiratory Rate 17 Blood Pressure Blood Pressure [Left Arm] 127/89 02 Sat by Pulse Oximetry 93 L Oxygen Delivery Method Mechanical Ventilation Fraction of Inspired Oxygen 35 35 35 05/14/23 05:36 05/14/23 06:00 05/14/23 06:55 Temperature 98.1 F 97.7 F Pulse Rate 75 Pulse Rate [Monitor] 62 66 Respiratory Rate 18 15 16 Blood Pressure Blood Pressure [Left Arm] 121/91 122/60 02 Sat by Pulse Oximetry 94 L 96 Oxygen Delivery Method Mechanical Ventilation Mechanical Ventilation Fraction of Inspired Oxygen 35 35 35 05/14/23 07:00 05/14/23 07:53 05/14/23 07:49 Temperature Pulse Rate Pulse Rate [Monitor] 65 Respiratory Rate 17 Blood Pressure Blood Pressure [Left Arm] 133/62 02 Sat by Pulse Oximetry 94 L Oxygen Delivery Method Mechanical Ventilation Fraction of Inspired Oxygen 35 35 35 05/14/23 07:56 05/14/23 07:44 05/14/23 08:16 Temperature Pulse Rate 59 L 59 L Pulse Rate [Monitor] Respiratory Rate Blood Pressure 122/58 L 122/58 L Blood Pressure [Left Arm] 02 Sat by Pulse Oximetry Oxygen Delivery Method Mechanical Ventilation Fraction of Inspired Oxygen 35 05/14/23 08:00 05/14/23 10:00 05/14/23 09:00 Temperature 96.7 F L Pulse Rate Pulse Rate [Monitor] 54 L Respiratory Rate 16 Blood Pressure Blood Pressure [Left Arm] 112/56 L 02 Sat by Pulse Oximetry 94 L Oxygen Delivery Method Mechanical Ventilation Mechanical Ventilation Fraction of Inspired Oxygen 35 35 35 05/14/23 10:00 05/14/23 08:37 05/14/23 10:52 Temperature Pulse Rate 72 54 L Pulse Rate [Monitor] Respiratory Rate 14 Blood Pressure 114/53 L Blood Pressure [Left Arm] 02 Sat by Pulse Oximetry Oxygen Delivery Method Fraction of Inspired Oxygen 35 35 05/14/23 10:52 05/14/23 10:58 05/14/23 10:58 Temperature 96.6 F L Pulse Rate 54 L Pulse Rate [Monitor] 54 L Respiratory Rate 17 Blood Pressure 114/53 L Blood Pressure [Left Arm] 114/56 L 02 Sat by Pulse Oximetry 93 L Oxygen Delivery Method Mechanical Ventilation Fraction of Inspired Oxygen 35 35 05/14/23 11:00 Temperature 96.6 F L Pulse Rate Pulse Rate [Monitor] 54 L Respiratory Rate 17 Blood Pressure Blood Pressure [Left Arm] 114/56 L 02 Sat by Pulse Oximetry 93 L Oxygen Delivery Method Mechanical Ventilation Fraction of Inspired Oxygen 35 Labs 05/14/23 06:10 05/14/23 09:14 Assessment/Plan (1) Myasthenic crisis: Assessment/Problem Details: CONSULT REASON: Exacerbation of myasthenia gravis, myasthenic crisis SUBJECTIVE: Last measured fever of any significance was early hours of May 13. Remains intubated, cannot obtain history or review of systems EXAMINATION: Intubated. Sedation briefly held. Opens eyes to voice. Breathing over the setventilatory rate. Nursing staff notes that when sedation is held for more prolonged period of time he awakens and follows commands. Mild anisocoria, bothpupils very small early pinpoint but right pupil 0.5 mm larger than left. Hypoactive reflexes. No pathologic reflexes. DATA REVIEW: -MRI brain February 28, 2018 unremarkable for acute process ASSESSMENT: Myasthenic crisis. Remains intubated. Recent fevers without discovery of any definitive underlying infectious process. Home myasthenia gravis medications were prednisone 10 mg daily and pyridostigmine 60 mg 4 times daily. PLAN: 1. IVIG, 2 g/kg course over 5 days (0.4 g/kg/day), today is day 4 2. Increased home prednisone 10 mg daily to prednisone 60 mg daily via NG/OG, today is day 4 3. Restarting pyridostigmine at 30 mg 3 times daily (home dose was 60 mg 4 times daily) with plans to gradually increase back up to home dose 4. Depending on how he does with spontaneous respiratory trials, he may need transferred to another institution for plasmapheresis Code(s): G70.01 - Myasthenia gravis with (acute) exacerbation Status: Acute Documented By: Jamel Packer DO 05/14/23 1107 Signed By: <Electronically signed by Jamel Packer DO> 05/14/23 1214 [facility] Work Phone: 1(129) 401-385709-24-2023 Progress note Author Stanley Burt [facility] May 14, 2023 12:02pm Note Date/Time May 14, 2023 9:12am [facility] [address] [place] [address] Pulmonology Progress Note Signed Patient: Taurus Garcia MR#: [id number] : 1945 Acct:[id number] Age/Sex: 77 / M Adm Date: 3 Loc: Room: [address] [place] [address] Type: ADM IN Attending Dr: Eliezer Newell MD Copies to: ~ Date of Service: 05/14/2023 Subjective Subjective Narrative: Patient continues with episodic fevers requiring external cooling with Arctic sun and has had episodes per nursing staff of what appears to be an irregular rhythm which may be atrial fibrillation with rapid ventricular response. Patient is in sinus rhythm at the time of my evaluation. Exam Physical Exam Vital Signs: Temp Pulse Resp BP Pulse Ox O2 Del Method FiO2 97.7 F 59 L 17 122/58 L 94 L Mechanical Ventilation 35 05/14/23 06:55 05/14/23 08:16 05/14/23 07:49 05/14/23 08:16 05/14/23 07:49 05/14/23 08:00 05/14/23 08:00 Const Nutritional Appearance: obese Orientation: not alert and not awake HEENT Head: normal to inspection, normocephalic and atraumatic Ears: external ears normal Nose: external nose normal Face and sinus: normal facial exam Mouth: other (8.0 mm ID ET tube) Eyes Eyelids: eyelids normal Neck Neck: normal visual inspection and no lymphadenopathy Chest Chest palpation & inspection: normal inspection of the chest Resp Auscultation: clear to auscultation bilaterally, no rales, no rhonchi and no wheezes Cardio Rate: regular rate Rhythm: regular rhythm Heart Sounds: S1 normal, S2 normal, no gallops, no murmurs and no rubs GI Inspection: normal to inspection Palpation: soft and nontender Auscultation: hypoactive bowel sounds Rectal Exam: deferred General: deferred Skin General: no rashes or lesions noted (warm and dry) Extrem General: no pedal edema Objective Intake and Output I&O - Last 24 Hours: Intake & Output 05/13/23 05/14/23 05/14/23 23:59 07:59 15:59 Intake Total 701 / 3151 1661 / 1661 Output Total 850 / 1700 900 / 900 Balance -149 / 1451 761 / 761 Weight 153 kg Labs 05/14/23 06:10 05/14/23 06:10 Microbiology Micro: Microbiology 05/12/23 07:39 Blood Culture - Preliminary Blood - Other No Growth 2 Days 05/12/23 07:34 Blood Culture - Preliminary Blood - Left Hand Presumptive Coag Neg. Staph Bacterial ID (NA Multiplex Assay) - Final 05/12/23 12:25 Aerobic Culture - Preliminary Sputum - Endotrachael Light Normal Respiratory Gee 1 Day Gram Stain - Final 05/12/23 10:00 Urine Culture - Preliminary [place] No Growth 1 Day Imaging and Cardiology Chest x-ray: Status: image reviewed by me Additional comments: Date of Service: 05/14/23 XR/XR chest 1V portable: Ett placement Plain film chest single view HISTORY: Follow-up assessment of intubated patient COMPARISON: 05/13/2023 FINDINGS: SUPPORT DEVICES: Tubes unchanged. POSTSURGICAL CHANGES: None HEART: Within normal limits PULMONARY DEVORA: Within normal limits MEDIASTINUM: Unremarkable LUNGS AND PLEURA: No acute lung process, pleural effusion or pneumothorax identified. Continued interstitial prominence. BONY STRUCTURES: Intact ADDITIONAL FINDINGS None XR/XR chest 1V portable IMPRESSION: Stable chest Additional Results Results Comments: 05/14/23 04:35 ABG pH 7.42 ABG pCO2 51.8 H* ABG pO2 62.6 L ABG HCO3 33.1 H ABG Total CO2 34.7 H ABG O2 Saturation 92.8 L ABG O2 Content 8.4 ABG Base Excess 7.1 H /5 Assessment/Plan Assessment/Plan (1) Acute respiratory failure with hypoxia: (2) Myasthenic crisis: (3) CKD (chronic kidney disease) stage 3, GFR 30-59 ml/min: (4) Obstructive sleep apnea: Plan Hospital day #4, ventilator day #4 for patient with history of myasthenia gravisas well as prior pulmonary embolism who was transferred from outside hospital ([place]) with progressive decompensation likely related to myasthenia gravis exacerbation. Patient's potassium is stable with patient getting day #4 of intravenous immunoglobulin today. Continue supportive care with patient alreadyon apixaban with nutritional support and stress ulcer prophylaxis. Note that cultures remain negative. Documented By: Stanley Burt MD 3 0910 Signed By: <Electronically signed by MD Stanley Burt> 05/14/23 1202 [facility] Work Phone: [phone]) [phone] Progress note Author Eliezer Newell [facility] May 13, 2023 6:40pm Note Date/Time May 13, 2023 5:41pm [facility] [address] [place] [address] Hospitalist Progress Note Signed Patient: Taurus Garcia MR#: [id number] : 1945 Acct:[id number] Age/Sex: 77 / M Adm Date: 3 Loc: Room: [address] [place] [address] Type: ADM IN Attending Dr: Eliezer Newell MD Copies to: ~ Date of Service: 05/13/2023 Subjective Subjective Narrative: Assessment And Plan 77M with PMH of HTN, HLD, Myasthenia Gravis (Dx 2016), CKD, PE(On Eliquis) who was admitted to [facility] 05/09 for generalized weakness. He was intubated there then transferred for the evaluation and treatment of suspected acute myasthenia gravis exacerbation. Acute Respiratory Failure due to Myasthenia gravis exacerbation remain on MV with low O2 demand The patient required intubation at [facility] CXR 05/11 shows Continued cardiomegaly and mild parenchymal changes. Maintain O2 supplement via Mechanical ventilator PPI for GI Prophylaxis Keep head of bed > 30 degree Pulmonary consulted recommendation appreciated Myasthenia gravis exacerbation Agree with IVIG and prednisone Pyridostigmine on hold Neurology was consulted, recommendation appreciated. Drug induced Hypotension hold lisinopril and Lasix Discontinue Hydrochlorothiazide/triamterene for now Hydralazine PO with holding parameter Drug induced Sinus Bradycardia hold betablcoker INTERVAL HPI: As Above, Pt resting in bed. Sedated and intubated , no more significant hypotension or bradycardia Chronic diseases: Unless mentioned Above, Essential home medications have been continued. DVT Px: Addressed Disposition: To be determined Plan of care Discussed with: the medical team, the Exam Physical Exam Vital Signs: Temp Pulse Resp BP Pulse Ox O2 Del Method FiO2 37.2 C 65 14 121/59 L 93 L Mechanical Ventilation 30 05/13/23 16:00 05/13/23 17:00 05/13/23 17:00 05/13/23 17:00 05/13/23 17:00 05/13/23 17:00 05/13/23 17:00 Narrative: GENERAL: on acute stress, Intubated NECK: no JVD, supple LUNGS: Bibasilar crackles. on MV CARDIAC: normal S1 and S2; no rubs, murmurs, or gallops ABDOMEN: Abdomen soft. BS normal. No palpable masses or organomegaly. EXTREMITIES: no edema in LE bilaterally NEURO: Limited Exam, Sedated and intubated PSYCH: Sedated and intubated Objective Lab Results 05/13/23 07:15 05/13/23 15:55 Microbiology Results Microbiology 05/12/23 12:25 Sputum - Endotrachael Aerobic Culture - Preliminary Light Normal Respiratory Gee 1 Day 05/12/23 12:25 Sputum - Endotrachael Gram Stain - Final 05/12/23 10:00 [place] Urine Culture - Preliminary No Growth 1 Day 05/12/23 07:39 Blood - Other Blood Culture - Preliminary No Growth 1 Day 05/12/23 07:34 Blood - Left Hand Blood Culture - Preliminary Presumptive Coag Neg. Staph 05/12/23 07:34 Blood - Left Hand Bacterial ID (NA Multiplex Assay) - Final Meds Allergies and Active Meds Allergies No Known Allergies Allergy (Verified 12/27/17 16:51) Active Meds: Active Medications Generic Name Dose Route Start Last Admin Trade Name Freq PRN Reason Stop Dose Admin Acetaminophen 650 mg 05/11/23 01:00 05/13/23 01:19 Acetaminophen 325 Mg Tablet PO 05/10/24 00:59 650 mg Q6HR PRN Administration Pain Scale 1 - 3 or fever Albuterol 6 puff 05/11/23 06:00 05/13/23 17:00 Albuterol Hfa 200 Puff/18 Gm Inhaler VENT 05/10/24 05:59 6 puff Q6HR DORI Administration Apixaban 5 mg 05/11/23 09:00 05/13/23 08:07 Apixaban 5 Mg Tablet PO 05/10/24 08:59 5 mg BID DORI Administration Atorvastatin Calcium 20 mg 05/11/23 22:00 05/12/23 21:46 Atorvastatin 20 Mg Tablet PO 05/10/24 21:59 20 mg HS DORI Administration Chlorhexidine Gluconate 15 ml 05/11/23 09:00 05/13/23 08:07 Chlorhexidine Gluconate 0.12% 15 Ml Udc MUCOUS MEM 05/10/24 08:59 15 ml BID DORI Administration Dextrose 0 gm 05/11/23 09:43 Dextrose 50% In Water 25 Gm/50 Ml Syringe IV-PUSH 05/10/24 09:42 PRN PRN Hypoglycemia Furosemide 20 mg 05/11/23 11:45 05/12/23 08:39 Furosemide 20 Mg Tablet PO 05/10/24 11:44 20 mg DAILY DORI Administration Hydralazine HCl 50 mg 05/11/23 11:45 05/13/23 08:07 Hydralazine 50 Mg Tablet PO 05/10/24 11:44 50 mg BID DORI Administration Propofol 1,000 mg in 100 mls @ 44.31 mls/hr 05/11/23 00:45 05/13/23 16:38 Diprivan IV 05/10/24 00:44 40 mcg/kg/min .Q2H16M DORI 35.45 mls/hr Administration Protocol 50 MCG/KG/MIN Lactated Ringer's 1,000 mls @ 75 mls/hr 05/11/23 02:00 05/13/23 16:38 Lactated Ringers IV 05/10/24 01:59 75 mls/hr .[id number] DORI Administration Immune Globulin 30 gm in 300 mls @ 0 mls/hr 05/11/23 09:00 05/13/23 11:24 Gammagard 10% 30 Gm/300 Ml IV 05/16/23 08:59 0 mls/hr DAILY DORI Infusion Protocol Per Protocol Immune Globulin 30 gm in 300 mls @ 0 mls/hr 05/11/23 09:00 05/13/23 11:25 Gammagard 10% 30 Gm/300 Ml IV 05/16/23 08:59 295 mls/hr DAILY DORI Administration Protocol Per Protocol Insulin Aspart 0 units 05/11/23 12:00 05/13/23 11:33 Insulin Aspart 300 Units/3 Ml Insuln.Pen SUBCUT 05/10/24 11:59 2 units Q6HR DORI Administration Protocol Lisinopril 20 mg 05/11/23 11:45 05/12/23 08:39 Lisinopril 20 Mg Tablet PO 05/10/24 11:44 20 mg DAILY DORI Administration Loratadine 10 mg 05/12/23 09:00 05/13/23 08:07 Loratadine 10 Mg Tablet PO 05/11/24 08:59 10 mg DAILY DORI Administration Nebivolol 10 mg 05/11/23 11:45 05/12/23 08:39 Nebivolol 5 Mg Tablet PO 05/10/24 11:44 10 mg DAILY DORI Administration Pantoprazole Sodium 40 mg 05/11/23 09:00 05/13/23 08:07 Pantoprazole 40 Mg Vial IV-PUSH 05/10/24 08:59 40 mg DAILY DORI Administration Prednisone 60 mg 05/11/23 09:00 05/13/23 08:07 Prednisone 20 Mg Tablet PO 05/10/24 08:59 60 mg DAILY DORI Administration Propofol 0 mg 05/11/23 00:23 Propofol - Infusion Bolus 1,000 Mg/100 Ml Vial IV 05/10/24 00:22 PROTOCOL PRN Bolus Documentation Sodium Chloride 10 ml 05/11/23 01:30 Sodium Chloride 0.9 % 10 Ml Syringe IV-PUSH 05/10/24 01:29 PRN PRN Flush Sodium Chloride 10 ml 05/11/23 01:30 05/12/23 08:40 Sodium Chloride 0.9 % 10 Ml Vial.Pf INJECTION 05/10/24 01:29 10 ml PRN PRN Administration Dilution A&P - Hospitalist Assessment/Plan (1) Acute exacerbation of myasthenia gravis: (2) Acute respiratory failure with hypoxia: (3) CKD (chronic kidney disease) stage 3, GFR 30-59 ml/min: Plan . Documented By: Eliezer Newell MD 05/13/23 4435 Signed By: <Electronically signed by Eliezer Newell MD> 05/13/23 1840 [facility] Work Phone: [phone]) 534-664709-23-2023 Progress note Author Stanley Burt [facility] May 13, 2023 1:31pm Note Date/Time May 13, 2023 10:36am [facility] [address] [place] [address] Pulmonology Progress Note Signed Patient: Taurus Garcia MR#: [id number] : 1945 Acct:[id number] Age/Sex: 77 / M Adm Date: 3 Loc: Room: [address] [place] [address] Type: ADM IN Attending Dr: Eliezer Newell MD Copies to: ~ Date of Service: 05/13/2023 Subjective Subjective Narrative: Patient received a second dose of intravenous immunoglobulin yesterday and was in the process of getting his third dose at the time of my evaluation today. His temperatures have been under fairly good control with Arctic sun with cultures negative to date with sputum revealing only light normal respiratory gee. Case was discussed at length with spouse who was at bedside. Exam Physical Exam Vital Signs: Temp Pulse Resp BP Pulse Ox O2 Del Method FiO2 99.0 F 65 14 165/74 H 94 L Mechanical Ventilation 30 05/13/23 10:05/13/23 10:05/13/23 10:05/13/23 10:05/13/23 10:05/13/23 10:05/13/23 10:00 Const Nutritional Appearance: obese Orientation: not alert and not awake HEENT Head: normal to inspection, normocephalic and atraumatic Ears: external ears normal Nose: external nose normal Face and sinus: normal facial exam Mouth: other (8.0 mm ID ET tube) Eyes Eyelids: eyelids normal Neck Neck: normal visual inspection and no lymphadenopathy Chest Chest palpation & inspection: normal inspection of the chest Resp Auscultation: clear to auscultation bilaterally, no rales, no rhonchi and no wheezes Cardio Rate: regular rate Rhythm: regular rhythm Heart Sounds: S1 normal, S2 normal, no gallops, no murmurs and no rubs GI Inspection: normal to inspection Palpation: soft and nontender Auscultation: hypoactive bowel sounds Rectal Exam: deferred General: deferred Skin General: no rashes or lesions noted (warm and dry) Extrem General: no pedal edema Objective Intake and Output I&O - Last 24 Hours: Intake & Output 05/12/23 05/13/23 05/13/23 23:59 07:59 15:59 Intake Total 1712 / 4973 700 / 800 100 / 800 Output Total 1275 / 3450 350 / 350 Balance 437 / 1523 350 / 450 100 / 450 Weight 151 kg 151 kg Labs 05/13/23 07:15 05/13/23 07:15 Microbiology Micro: Microbiology 05/12/23 07:39 Blood Culture - Preliminary Blood - Other No Growth 1 Day 05/12/23 07:34 Blood Culture - Preliminary Blood - Left Hand Presumptive Coag Neg. Staph Bacterial ID (NA Multiplex Assay) - Final Imaging and Cardiology Chest x-ray: Status: image reviewed by me Additional comments: Date of Service: 05/13/23 XR/XR chest 1V portable: Ett placement Plain film chest single view HISTORY: Follow-up assessment of intubated patient. COMPARISON: 04/11/2023 FINDINGS: SUPPORT DEVICES: Tubes unchanged. POSTSURGICAL CHANGES: None HEART: Within normal limits PULMONARY DEVORA: Within normal limits MEDIASTINUM: Unremarkable LUNGS AND PLEURA: No acute lung process, pleural effusion or pneumothorax identified. Continued mild interstitial prominence. BONY STRUCTURES: Intact ADDITIONAL FINDINGS None XR/XR chest 1V portable IMPRESSION: Stable chest Additional Results Results Comments: 05/13/23 04:43 ABG HCO3 29.4 H ABG Total CO2 31.1 H ABG O2 Saturation 95.2 ABG O2 Content 8.4 ABG Base Excess 2.9 7.36/53/78 on Assessment/Plan Assessment/Plan (1) Acute respiratory failure with hypoxia: (2) Myasthenic crisis: (3) CKD (chronic kidney disease) stage 3, GFR 30-59 ml/min: (4) Obstructive sleep apnea: Plan Hospital day #3, ventilator day #3 for patient with history of myasthenia gravisas well as prior pulmonary embolism who was transferred from outside hospital ([place]) with progressive decompensation likely related to myasthenia gravis exacerbation. Patient is stable clinically though with recurring issues with hemolysis not allowing measurement of potassium but without evidence of hemolysis on laboratory values with stable hemoglobin and haptoglobin. Pathology review of smear is pending. Cultures revealed coagulase-negative Staphylococcus in 1 of 2 blood cultures which is likely contaminant with all other cultures negative. We will plan on continuing mechanical support until intravenous immunoglobulin is completed. We will need to continue to follow temperature curve and are holding antibiotics and will follow on cultures. Patient had tolerated tube feeds and remains on apixaban with prior history of pulmonary embolism. Continue supportive care. Documented By: Stanley Burt MD 3 1034 Signed By: <Electronically signed by MD Stanley Burt> 05/13/23 1331 [facility] Work Phone: [phone]) 925-611209-23-2023 Progress note Author Jamel Packer [facility] May 13, 2023 1:04pm Note Date/Time May 13, 2023 1:04pm [facility] [address] [place] [address] Neurology Progress Note Signed Patient: Taurus Garcia MR#: [id number] : 1945 Acct:[id number] Age/Sex: 77 / M Adm Date: 3 Loc: Room: [address] [place] [address] Type: ADM IN Attending Dr: Eliezer Newell MD Copies to: ~ Date of Service: 05/13/2023 Exam Physical Exam Vital Signs: Temp Pulse Resp BP Pulse Ox O2 Del Method FiO2 97.8 F 55 L 12 135/61 95 Mechanical Ventilation 30 05/13/23 12:00 05/13/23 12:07 05/13/23 12:07 05/13/23 12:00 05/13/23 12:00 05/13/23 12:00 05/13/23 12:07 Objective Vital Signs Vital Signs: Vital Signs - 24 hr 05/12/23 14:00 05/12/23 14:00 05/12/23 14:46 Temperature 99.0 F Pulse Rate 49 L Pulse Rate [Monitor] 52 L Respiratory Rate 13 Blood Pressure 103/52 L Blood Pressure [Left Arm] 110/56 L 02 Sat by Pulse Oximetry 94 L Oxygen Delivery Method Mechanical Ventilation Fraction of Inspired Oxygen 30 30 05/12/23 14:48 05/12/23 14:00 05/12/23 15:00 Temperature 98.4 F 104.2 F H Pulse Rate 49 L Pulse Rate [Monitor] Respiratory Rate Blood Pressure 103/52 L Blood Pressure [Left Arm] 02 Sat by Pulse Oximetry Oxygen Delivery Method Fraction of Inspired Oxygen 05/12/23 15:00 05/12/23 15:00 05/12/23 14:45 Temperature Pulse Rate 50 L Pulse Rate [Monitor] 48 L Respiratory Rate 13 Blood Pressure 103/52 L Blood Pressure [Left Arm] 133/63 02 Sat by Pulse Oximetry 95 Oxygen Delivery Method Mechanical Ventilation Fraction of Inspired Oxygen 30 30 05/12/23 15:37 05/12/23 15:59 05/12/23 16:00 Temperature 97.1 F L Pulse Rate 47 L 52 L Pulse Rate [Monitor] Respiratory Rate Blood Pressure 99/55 L 98/50 L Blood Pressure [Left Arm] 02 Sat by Pulse Oximetry Oxygen Delivery Method Fraction of Inspired Oxygen 05/12/23 16:00 05/12/23 16:00 05/12/23 16:17 Temperature 97.1 F L Pulse Rate 51 L Pulse Rate [Monitor] 51 L Respiratory Rate 18 Blood Pressure 125/60 Blood Pressure [Left Arm] 98/50 L 02 Sat by Pulse Oximetry 97 Oxygen Delivery Method Mechanical Ventilation Fraction of Inspired Oxygen 30 30 05/12/23 16:00 05/12/23 16:39 05/12/23 17:00 Temperature 98.1 F Pulse Rate 57 L Pulse Rate [Monitor] Respiratory Rate 15 Blood Pressure Blood Pressure [Left Arm] 02 Sat by Pulse Oximetry Oxygen Delivery Method Mechanical Ventilation Fraction of Inspired Oxygen 30 30 05/12/23 17:00 05/12/23 17:00 05/12/23 18:00 Temperature Pulse Rate Pulse Rate [Monitor] 54 L Respiratory Rate 15 Blood Pressure Blood Pressure [Left Arm] 116/57 L 02 Sat by Pulse Oximetry 97 Oxygen Delivery Method Mechanical Ventilation Fraction of Inspired Oxygen 30 30 30 05/12/23 18:00 05/12/23 18:00 05/12/23 19:00 Temperature 98.5 F 98.6 F Pulse Rate Pulse Rate [Monitor] 57 L Respiratory Rate 16 Blood Pressure Blood Pressure [Left Arm] 104/55 L 02 Sat by Pulse Oximetry 94 L Oxygen Delivery Method Mechanical Ventilation Fraction of Inspired Oxygen 30 05/12/23 19:00 05/12/23 19:00 05/12/23 19:43 Temperature Pulse Rate 58 L Pulse Rate [Monitor] 62 Respiratory Rate 21 Blood Pressure 108/53 L Blood Pressure [Left Arm] 101/53 L 02 Sat by Pulse Oximetry 93 L Oxygen Delivery Method Mechanical Ventilation Fraction of Inspired Oxygen 30 30 05/12/23 19:43 05/12/23 20:50 05/12/23 20:00 Temperature 98.7 F Pulse Rate 58 L 58 L Pulse Rate [Monitor] Respiratory Rate 17 Blood Pressure 108/53 L Blood Pressure [Left Arm] 02 Sat by Pulse Oximetry Oxygen Delivery Method Fraction of Inspired Oxygen 30 05/12/23 21:00 05/12/23 21:48 05/12/23 22:42 Temperature 99.2 F H Pulse Rate 62 63 Pulse Rate [Monitor] Respiratory Rate Blood Pressure 130/60 161/73 H Blood Pressure [Left Arm] 02 Sat by Pulse Oximetry Oxygen Delivery Method Fraction of Inspired Oxygen 05/12/23 23:15 05/12/23 20:00 05/12/23 20:00 Temperature Pulse Rate 62 Pulse Rate [Monitor] Respiratory Rate Blood Pressure 141/64 H Blood Pressure [Left Arm] 02 Sat by Pulse Oximetry Oxygen Delivery Method Mechanical Ventilation Fraction of Inspired Oxygen 30 30 05/12/23 21:00 05/12/23 22:00 05/12/23 23:00 Temperature Pulse Rate Pulse Rate [Monitor] Respiratory Rate Blood Pressure Blood Pressure [Left Arm] 02 Sat by Pulse Oximetry Oxygen Delivery Method Fraction of Inspired Oxygen 30 30 30 05/12/23 20:00 05/12/23 21:00 05/12/23 22:00 Temperature 98.9 F Pulse Rate Pulse Rate [Monitor] 57 L 62 62 Respiratory Rate 14 18 17 Blood Pressure Blood Pressure [Left Arm] 111/54 L 130/60 132/61 02 Sat by Pulse Oximetry 93 L 96 96 Oxygen Delivery Method Mechanical Ventilation Mechanical Ventilation Mechanical Ventilation Fraction of Inspired Oxygen 30 30 30 05/12/23 22:00 05/12/23 23:00 05/12/23 23:00 Temperature 99.5 F H 99.8 F H Pulse Rate Pulse Rate [Monitor] 62 Respiratory Rate 17 Blood Pressure Blood Pressure [Left Arm] 152/67 H 02 Sat by Pulse Oximetry 96 Oxygen Delivery Method Mechanical Ventilation Fraction of Inspired Oxygen 30 05/13/23 00:11 05/13/23 00:00 05/13/23 00:00 Temperature 100.1 F H Pulse Rate 64 Pulse Rate [Monitor] 63 Respiratory Rate 19 Blood Pressure 146/76 H Blood Pressure [Left Arm] 146/76 H 02 Sat by Pulse Oximetry 92 L Oxygen Delivery Method Mechanical Ventilation Fraction of Inspired Oxygen 30 30 05/13/23 00:00 05/13/23 00:12 05/13/23 00:31 Temperature 100 F H Pulse Rate 64 64 Pulse Rate [Monitor] Respiratory Rate Blood Pressure 146/76 H 146/76 H Blood Pressure [Left Arm] 02 Sat by Pulse Oximetry Oxygen Delivery Method Fraction of Inspired Oxygen 05/13/23 00:59 05/13/23 01:00 05/13/23 01:00 Temperature 100.6 F H Pulse Rate 65 Pulse Rate [Monitor] Respiratory Rate Blood Pressure 141/102 H Blood Pressure [Left Arm] 02 Sat by Pulse Oximetry Oxygen Delivery Method Fraction of Inspired Oxygen 30 05/13/23 01:00 05/13/23 01:41 05/13/23 00:00 Temperature 100.5 F H Pulse Rate 64 63 Pulse Rate [Monitor] 65 Respiratory Rate 13 18 Blood Pressure 133/77 Blood Pressure [Left Arm] 133/77 02 Sat by Pulse Oximetry 96 Oxygen Delivery Method Mechanical Ventilation Fraction of Inspired Oxygen 30 30 05/13/23 02:00 05/13/23 02:00 05/13/23 02:00 Temperature 100.2 F H 100.2 F H Pulse Rate Pulse Rate [Monitor] 62 Respiratory Rate 14 Blood Pressure Blood Pressure [Left Arm] 148/64 H 02 Sat by Pulse Oximetry 94 L Oxygen Delivery Method Mechanical Ventilation Fraction of Inspired Oxygen 30 30 05/13/23 02:28 05/13/23 02:28 05/13/23 02:59 Temperature Pulse Rate 61 61 Pulse Rate [Monitor] Respiratory Rate Blood Pressure 148/64 H 148/64 H Blood Pressure [Left Arm] 02 Sat by Pulse Oximetry Oxygen Delivery Method Fraction of Inspired Oxygen 30 05/13/23 03:00 05/13/23 03:00 05/13/23 04:00 Temperature 99.6 F H 99.6 F H 99.0 F Pulse Rate Pulse Rate [Monitor] 57 L Respiratory Rate 12 Blood Pressure Blood Pressure [Left Arm] 125/60 02 Sat by Pulse Oximetry 96 Oxygen Delivery Method Mechanical Ventilation Fraction of Inspired Oxygen 30 05/13/23 04:00 05/13/23 04:00 05/13/23 04:32 Temperature 99.0 F Pulse Rate 67 Pulse Rate [Monitor] 67 Respiratory Rate 15 Blood Pressure 123/78 Blood Pressure [Left Arm] 123/78 02 Sat by Pulse Oximetry 96 Oxygen Delivery Method Mechanical Ventilation Fraction of Inspired Oxygen 30 30 05/13/23 04:42 05/13/23 04:32 05/13/23 05:00 Temperature 99.4 F H Pulse Rate 67 63 Pulse Rate [Monitor] Respiratory Rate 13 Blood Pressure 123/78 Blood Pressure [Left Arm] 02 Sat by Pulse Oximetry Oxygen Delivery Method Fraction of Inspired Oxygen 30 05/13/23 06:00 05/13/23 05:00 05/13/23 06:00 Temperature 99.1 F H Pulse Rate Pulse Rate [Monitor] Respiratory Rate Blood Pressure Blood Pressure [Left Arm] 02 Sat by Pulse Oximetry Oxygen Delivery Method Fraction of Inspired Oxygen 30 30 05/13/23 05:00 05/13/23 06:00 05/13/23 06:35 Temperature 99.0 F 99.0 F Pulse Rate 67 Pulse Rate [Monitor] 67 67 Respiratory Rate 15 14 Blood Pressure 166/74 H Blood Pressure [Left Arm] 123/78 166/74 H 02 Sat by Pulse Oximetry 96 92 L Oxygen Delivery Method Mechanical Ventilation Mechanical Ventilation Fraction of Inspired Oxygen 30 30 05/13/23 06:49 05/13/23 07:00 05/13/23 07:00 Temperature 99.0 F Pulse Rate 67 Pulse Rate [Monitor] Respiratory Rate Blood Pressure 166/74 H Blood Pressure [Left Arm] 02 Sat by Pulse Oximetry Oxygen Delivery Method Fraction of Inspired Oxygen 30 05/13/23 07:00 05/13/23 08:40 05/13/23 08:42 Temperature Pulse Rate 67 72 Pulse Rate [Monitor] 67 Respiratory Rate 14 13 Blood Pressure 148/63 H Blood Pressure [Left Arm] 154/76 H 02 Sat by Pulse Oximetry 92 L Oxygen Delivery Method Mechanical Ventilation Fraction of Inspired Oxygen 30 30 05/13/23 09:20 05/13/23 08:00 05/13/23 08:00 Temperature 99.1 F H Pulse Rate 72 Pulse Rate [Monitor] Respiratory Rate Blood Pressure 148/63 H Blood Pressure [Left Arm] 02 Sat by Pulse Oximetry Oxygen Delivery Method Fraction of Inspired Oxygen 30 05/13/23 09:00 05/13/23 09:00 05/13/23 08:00 Temperature Pulse Rate Pulse Rate [Monitor] 70 66 Respiratory Rate 14 14 Blood Pressure Blood Pressure [Left Arm] 157/69 H 149/78 H 02 Sat by Pulse Oximetry 94 L 94 L Oxygen Delivery Method Mechanical Ventilation Mechanical Ventilation Fraction of Inspired Oxygen 30 30 30 05/13/23 10:00 05/13/23 10:00 05/13/23 10:00 Temperature 99.0 F Pulse Rate Pulse Rate [Monitor] 65 Respiratory Rate 14 Blood Pressure Blood Pressure [Left Arm] 165/74 H 02 Sat by Pulse Oximetry 94 L Oxygen Delivery Method Mechanical Ventilation Fraction of Inspired Oxygen 30 30 05/13/23 08:00 05/13/23 09:00 05/13/23 11:00 Temperature 99.0 F 98.5 F Pulse Rate Pulse Rate [Monitor] Respiratory Rate Blood Pressure Blood Pressure [Left Arm] 02 Sat by Pulse Oximetry Oxygen Delivery Method Mechanical Ventilation Fraction of Inspired Oxygen 30 05/13/23 11:00 05/13/23 11:26 05/13/23 11:26 Temperature Pulse Rate 57 L 57 L Pulse Rate [Monitor] 56 L Respiratory Rate 14 Blood Pressure 157/70 H 157/70 H Blood Pressure [Left Arm] 157/70 H 02 Sat by Pulse Oximetry 94 L Oxygen Delivery Method Mechanical Ventilation Fraction of Inspired Oxygen 30 05/13/23 11:00 05/13/23 12:00 05/13/23 12:00 Temperature Pulse Rate Pulse Rate [Monitor] 55 L Respiratory Rate 14 Blood Pressure Blood Pressure [Left Arm] 135/61 02 Sat by Pulse Oximetry 95 Oxygen Delivery Method Mechanical Ventilation Fraction of Inspired Oxygen 30 30 30 05/13/23 12:00 05/13/23 12:07 Temperature 97.8 F Pulse Rate 55 L Pulse Rate [Monitor] Respiratory Rate 12 Blood Pressure Blood Pressure [Left Arm] 02 Sat by Pulse Oximetry Oxygen Delivery Method Fraction of Inspired Oxygen 30 Labs 05/13/23 07:15 05/13/23 07:15 Assessment/Plan (1) Myasthenic crisis: Assessment/Problem Details: CONSULT REASON: Exacerbation of myasthenia gravis, myasthenic crisis SUBJECTIVE: Remains intubated so cannot provide any history or review of systems. No overnight events. Fevers gradually improved. Got his second dose of IVIG yesterday afternoon. Third dose of IVIG administered this morning and did not exacerbate any fever issues. EXAMINATION: Intubated. Sedated with propofol. Breathing over the set ventilatory rate. Does not respond to voice or tactile stimuli. Nursing staff notes that when sedation is held he awakens and follows commands. Mild anisocoria, both pupils very small early pinpoint but right pupil 0.5 mm larger than left. Hypoactive reflexes. No pathologic reflexes. DATA REVIEW: -MRI brain February 28, 2018 unremarkable for acute process ASSESSMENT: Myasthenic crisis. Severe exacerbation of myasthenia gravis. Currently intubated. Recent fevers without discovery of any definitive underlying infectious process. Home myasthenia gravis medications were prednisone 10 mg daily and pyridostigmine 60 mg 4 times daily. PLAN: 1. IVIG, 2 g/kg course over 5 days (0.4 g/kg/day), today is day 3 2. Increased home prednisone 10 mg daily to prednisone 60 mg daily via NG/OG 3. Pyridostigmine discontinued for time being; was certainly contributing to the oral secretion overproduction 4. I discussed with his son and his that without dramatic early improvement here, it is starting to look [facility] completing his IVIG course. Code(s): G70.01 - Myasthenia gravis with (acute) exacerbation Status: Acute Documented By: Jamel Packer DO 05/13/23 1301 Signed By: <Electronically signed by Jamel Packer DO> 05/13/23 1304 [facility] Work Phone: 1([phone]) 433-423509-22-2023 Progress note Author Eliezer Newell [facility] May 12, 2023 6:48pm Note Date/Time May 12, 2023 3:45pm [facility] [address] [place] [address] Hospitalist Progress Note Signed Patient: Taurus Garcia MR#: [id number] : 1945 Acct:[id number] Age/Sex: 77 / M Adm Date: 3 Loc: Room: [address] [place] [address] Type: ADM IN Attending Dr: Eliezer Newell MD Copies to: ~ Date of Service: 05/12/2023 Subjective Subjective Narrative: Assessment And Plan 77M with PMH of HTN, HLD, Myasthenia Gravis (Dx 2017), CKD, PE(On Eliquis) who was admitted to [facility] 05/09 for generalized weakness. He was intubated there then transferred for the evaluation and treatment of suspected acute myasthenia gravis exacerbation. Acute Respiratory Failure remain on MV with low O2 demand The patient required intubation at [facility] CXR 05/11 shows Continued cardiomegaly and mild parenchymal changes. Maintain O2 supplement via Mechanical ventilator PPI for GI Prophylaxis Keep head of bed > 30 degree Pulmonary consulted recommendation appreciated Myasthenia gravis exacerbation Agree with IVIG and prednisone Pyridostigmine on hold Neurology was consulted, recommendation appreciated. Drug induced Hypotension mild hypotension noted. likely medication induced hold lisinopril and Lasix Discontinue Hydrochlorothiazide/triamterene for now Hydralazine PO with holding parameter Sinus Bradycardia hold betablcoker INTERVAL HPI: As Above, Pt resting in bed. Sedated and intubated Chronic diseases: Unless mentioned Above, Essential home medications have been continued. DVT Px: Addressed Disposition: To be determined Plan of care Discussed with: the medical team, the Exam Physical Exam Vital Signs: Temp Pulse Resp BP Pulse Ox O2 Del Method FiO2 40.1 C H 47 L 13 99/55 L 95 Mechanical Ventilation 30 05/12/23 15:00 05/12/23 15:37 05/12/23 15:00 05/12/23 15:37 05/12/23 15:00 05/12/23 15:00 05/12/23 15:00 Narrative: GENERAL: on acute stress, Intubated NECK: no JVD, supple LUNGS: Bibasilar crackles. on MV CARDIAC: normal S1 and S2; no rubs, murmurs, or gallops ABDOMEN: Abdomen soft. BS normal. No palpable masses or organomegaly. EXTREMITIES: no edema in LE bilaterally NEURO: Limited Exam, Sedated and intubated PSYCH: Sedated and intubated Objective Lab Results 05/12/23 14:42 05/12/23 14:28 ABG Interpretation ABG results: 05/12/23 04:02 ABG pH 7.43 ABG pCO2 49.3 H ABG pO2 72.1 L ABG HCO3 31.7 H ABG Total CO2 33.2 H ABG O2 Saturation 95.5 ABG O2 Content 8.8 ABG Base Excess 6.1 H Meds Allergies and Active Meds Allergies No Known Allergies Allergy (Verified 12/27/17 16:51) Active Meds: Active Medications Generic Name Dose Route Start Last Admin Trade Name Freq PRN Reason Stop Dose Admin Acetaminophen 650 mg 05/11/23 01:00 05/12/23 10:30 Acetaminophen 325 Mg Tablet PO 05/10/24 00:59 650 mg Q6HR PRN Administration Pain Scale 1 - 3 or fever Albuterol 6 puff 05/11/23 06:00 05/12/23 12:42 Albuterol Hfa 200 Puff/18 Gm Inhaler VENT 05/10/24 05:59 6 puff Q6HR DORI Administration Apixaban 5 mg 05/11/23 09:00 05/12/23 08:39 Apixaban 5 Mg Tablet PO 05/10/24 08:59 5 mg BID DORI Administration Atorvastatin Calcium 20 mg 05/11/23 22:00 05/11/23 21:37 Atorvastatin 20 Mg Tablet PO 05/10/24 21:59 20 mg HS DORI Administration Chlorhexidine Gluconate 15 ml 05/11/23 09:00 05/12/23 08:40 Chlorhexidine Gluconate 0.12% 15 Ml Udc MUCOUS MEM 05/10/24 08:59 15 ml BID DORI Administration Dextrose 0 gm 05/11/23 09:43 Dextrose 50% In Water 25 Gm/50 Ml Syringe IV-PUSH 05/10/24 09:42 PRN PRN Hypoglycemia Furosemide 20 mg 05/11/23 11:45 05/12/23 08:39 Furosemide 20 Mg Tablet PO 05/10/24 11:44 20 mg DAILY DORI Administration Hydralazine HCl 50 mg 05/11/23 11:45 05/12/23 08:40 Hydralazine 50 Mg Tablet PO 05/10/24 11:44 50 mg BID DORI Administration Propofol 1,000 mg in 100 mls @ 44.31 mls/hr 05/11/23 00:45 05/12/23 15:37 Diprivan IV 05/10/24 00:44 20 mcg/kg/min .Q2H16M DORI 17.72 mls/hr Titration Protocol 50 MCG/KG/MIN Lactated Ringer's 1,000 mls @ 75 mls/hr 05/11/23 02:00 05/12/23 06:51 Lactated Ringers IV 05/10/24 01:59 75 mls/hr .[id number] DORI Administration Immune Globulin 30 gm in 300 mls @ 0 mls/hr 05/11/23 09:00 05/12/23 15:10 Gammagard 10% 30 Gm/300 Ml IV 05/16/23 08:59 Infused DAILY DORI Infusion Protocol Per Protocol Immune Globulin 30 gm in 300 mls @ 0 mls/hr 05/11/23 09:00 05/12/23 15:09 Gammagard 10% 30 Gm/300 Ml IV 05/16/23 08:59 443 mls/hr DAILY DORI Administration Protocol Per Protocol Insulin Aspart 0 units 05/11/23 12:00 05/12/23 13:42 Insulin Aspart 300 Units/3 Ml Insuln.Pen SUBCUT 05/10/24 11:59 3 units Q6HR DORI Administration Protocol Lisinopril 20 mg 05/11/23 11:45 05/12/23 08:39 Lisinopril 20 Mg Tablet PO 05/10/24 11:44 20 mg DAILY DORI Administration Loratadine 10 mg 05/12/23 09:00 05/12/23 08:40 Loratadine 10 Mg Tablet PO 05/11/24 08:59 10 mg DAILY DORI Administration Nebivolol 10 mg 05/11/23 11:45 05/12/23 08:39 Nebivolol 5 Mg Tablet PO 05/10/24 11:44 10 mg DAILY DORI Administration Pantoprazole Sodium 40 mg 05/11/23 09:00 05/12/23 08:40 Pantoprazole 40 Mg Vial IV-PUSH 05/10/24 08:59 40 mg DAILY DORI Administration Prednisone 60 mg 05/11/23 09:00 05/12/23 08:39 Prednisone 20 Mg Tablet PO 05/10/24 08:59 60 mg DAILY DORI Administration Propofol 0 mg 05/11/23 00:23 Propofol - Infusion Bolus 1,000 Mg/100 Ml Vial IV 05/10/24 00:22 PROTOCOL PRN Bolus Documentation Sodium Chloride 10 ml 05/11/23 01:30 Sodium Chloride 0.9 % 10 Ml Syringe IV-PUSH 05/10/24 01:29 PRN PRN Flush Sodium Chloride 10 ml 05/11/23 01:30 05/12/23 08:40 Sodium Chloride 0.9 % 10 Ml Vial.Pf INJECTION 05/10/24 01:29 10 ml PRN PRN Administration Dilution Triamterene/Hydrochlorothiazide 1 tab 05/12/23 09:00 05/12/23 08:39 Triamterene/Hctz 37.5-25mg 1 Tab Tablet PO 05/11/24 08:59 1 tab DAILY DORI Administration A&P - Hospitalist Assessment/Plan (1) Acute exacerbation of myasthenia gravis: (2) Acute respiratory failure with hypoxia: (3) CKD (chronic kidney disease) stage 3, GFR 30-59 ml/min: Plan . Documented By: Eliezer Newell MD 05/12/23 1541 Signed By: <Electronically signed by Eliezer Newell MD> 05/12/23 4811 [facility] Work Phone: 1(293) 714-228709-22-2023 Progress note Author Jamel Packer [facility] May 12, 2023 2:06pm Note Date/Time May 12, 2023 2:06pm [facility] [address] [place] [address] Neurology Progress Note Signed Patient: Taurus Garcia MR#: [id number] : 1945 Acct:[id number] Age/Sex: 77 / M Adm Date: 3 Loc: Room: [address] [place] [address] Type: ADM IN Attending Dr: Eliezer Newell MD Copies to: ~ Date of Service: 05/12/2023 Exam Physical Exam Vital Signs: Temp Pulse Resp BP Pulse Ox O2 Del Method FiO2 103.3 F H 64 20 116/50 L 94 L Mechanical Ventilation 30 05/12/23 10:00 05/12/23 13:00 05/12/23 13:00 05/12/23 13:00 05/12/23 13:00 05/12/23 13:00 05/12/23 13:00 Objective Vital Signs Vital Signs: Vital Signs - 24 hr 05/11/23 14:54 05/11/23 16:05 05/11/23 16:29 Temperature Pulse Rate 53 L 53 L 54 L Pulse Rate [Bilateral Dorsalis Pedis] Pulse Rate [Bilateral Radial] Pulse Rate [Monitor] Respiratory Rate 14 Blood Pressure 129/61 129/61 Blood Pressure [Left Arm] 02 Sat by Pulse Oximetry Oxygen Delivery Method Fraction of Inspired Oxygen 30 05/11/23 16:57 05/11/23 16:55 05/11/23 16:58 Temperature 97.4 F L Pulse Rate Pulse Rate [Bilateral Dorsalis Pedis] 56 L Pulse Rate [Bilateral Radial] 56 L Pulse Rate [Monitor] 56 L Respiratory Rate 12 Blood Pressure Blood Pressure [Left Arm] 137/62 02 Sat by Pulse Oximetry 96 Oxygen Delivery Method Mechanical Ventilation Mechanical Ventilation Fraction of Inspired Oxygen 30 30 30 05/11/23 17:00 05/11/23 17:00 05/11/23 18:00 Temperature 97.4 F L Pulse Rate Pulse Rate [Bilateral Dorsalis Pedis] 53 L Pulse Rate [Bilateral Radial] 53 L Pulse Rate [Monitor] 53 L Respiratory Rate 13 Blood Pressure Blood Pressure [Left Arm] 154/72 H 02 Sat by Pulse Oximetry 96 Oxygen Delivery Method Mechanical Ventilation Fraction of Inspired Oxygen 30 30 30 05/11/23 18:00 05/11/23 19:13 05/11/23 19:00 Temperature 97.4 F L Pulse Rate Pulse Rate [Bilateral Dorsalis Pedis] 56 L Pulse Rate [Bilateral Radial] 56 L Pulse Rate [Monitor] 54 L 56 L Respiratory Rate 12 12 Blood Pressure Blood Pressure [Left Arm] 152/67 H 139/63 02 Sat by Pulse Oximetry 96 97 Oxygen Delivery Method Mechanical Ventilation Mechanical Ventilation Fraction of Inspired Oxygen 30 30 30 05/11/23 18:55 05/11/23 20:00 05/11/23 20:17 Temperature Pulse Rate 54 L 54 L 56 L Pulse Rate [Bilateral Dorsalis Pedis] Pulse Rate [Bilateral Radial] Pulse Rate [Monitor] Respiratory Rate 12 Blood Pressure 131/62 131/62 Blood Pressure [Left Arm] 02 Sat by Pulse Oximetry Oxygen Delivery Method Fraction of Inspired Oxygen 30 05/11/23 20:00 05/11/23 20:00 05/11/23 20:00 Temperature 97.6 F Pulse Rate Pulse Rate [Bilateral Dorsalis Pedis] Pulse Rate [Bilateral Radial] Pulse Rate [Monitor] 57 L Respiratory Rate 10 L Blood Pressure Blood Pressure [Left Arm] 164/72 H 02 Sat by Pulse Oximetry 96 Oxygen Delivery Method Mechanical Ventilation Mechanical Ventilation Fraction of Inspired Oxygen 30 30 30 05/11/23 21:00 05/11/23 21:00 05/11/23 22:00 Temperature Pulse Rate Pulse Rate [Bilateral Dorsalis Pedis] Pulse Rate [Bilateral Radial] Pulse Rate [Monitor] 62 60 Respiratory Rate 10 L 10 L Blood Pressure Blood Pressure [Left Arm] 146/69 H 131/63 02 Sat by Pulse Oximetry 98 96 Oxygen Delivery Method Mechanical Ventilation Mechanical Ventilation Fraction of Inspired Oxygen 30 30 30 05/11/23 22:00 05/11/23 22:42 05/11/23 22:42 Temperature Pulse Rate 60 60 Pulse Rate [Bilateral Dorsalis Pedis] Pulse Rate [Bilateral Radial] Pulse Rate [Monitor] Respiratory Rate Blood Pressure 153/69 H 153/69 H Blood Pressure [Left Arm] 02 Sat by Pulse Oximetry Oxygen Delivery Method Fraction of Inspired Oxygen 30 05/11/23 23:00 05/11/23 23:00 05/11/23 23:21 Temperature Pulse Rate 64 Pulse Rate [Bilateral Dorsalis Pedis] Pulse Rate [Bilateral Radial] Pulse Rate [Monitor] 62 Respiratory Rate 16 21 Blood Pressure Blood Pressure [Left Arm] 145/65 H 02 Sat by Pulse Oximetry 96 Oxygen Delivery Method Mechanical Ventilation Fraction of Inspired Oxygen 30 30 30 05/12/23 00:00 05/12/23 00:00 05/12/23 00:52 Temperature 98.3 F Pulse Rate 63 Pulse Rate [Bilateral Dorsalis Pedis] Pulse Rate [Bilateral Radial] Pulse Rate [Monitor] 61 Respiratory Rate 14 Blood Pressure 142/65 H Blood Pressure [Left Arm] 142/65 H 02 Sat by Pulse Oximetry 96 Oxygen Delivery Method Mechanical Ventilation Fraction of Inspired Oxygen 30 30 05/12/23 00:52 05/12/23 01:00 05/12/23 01:00 Temperature Pulse Rate 63 Pulse Rate [Bilateral Dorsalis Pedis] Pulse Rate [Bilateral Radial] Pulse Rate [Monitor] 63 Respiratory Rate 14 Blood Pressure 142/65 H Blood Pressure [Left Arm] 153/72 H 02 Sat by Pulse Oximetry 95 Oxygen Delivery Method Mechanical Ventilation Fraction of Inspired Oxygen 30 30 05/12/23 02:00 05/12/23 02:00 05/12/23 03:00 Temperature Pulse Rate Pulse Rate [Bilateral Dorsalis Pedis] Pulse Rate [Bilateral Radial] Pulse Rate [Monitor] 74 Respiratory Rate 17 Blood Pressure Blood Pressure [Left Arm] 120/73 02 Sat by Pulse Oximetry 95 Oxygen Delivery Method Mechanical Ventilation Fraction of Inspired Oxygen 30 30 30 05/12/23 03:00 05/12/23 03:42 05/12/23 03:57 Temperature Pulse Rate 84 84 Pulse Rate [Bilateral Dorsalis Pedis] Pulse Rate [Bilateral Radial] Pulse Rate [Monitor] 78 Respiratory Rate 19 Blood Pressure 148/96 H 148/96 H Blood Pressure [Left Arm] 122/78 02 Sat by Pulse Oximetry 96 Oxygen Delivery Method Mechanical Ventilation Fraction of Inspired Oxygen 30 05/12/23 04:00 05/12/23 04:00 05/12/23 05:00 Temperature Pulse Rate Pulse Rate [Bilateral Dorsalis Pedis] Pulse Rate [Bilateral Radial] Pulse Rate [Monitor] 88 Respiratory Rate 18 Blood Pressure Blood Pressure [Left Arm] 133/85 02 Sat by Pulse Oximetry 93 L Oxygen Delivery Method Mechanical Ventilation Fraction of Inspired Oxygen 30 30 30 05/12/23 05:00 05/12/23 06:00 05/12/23 06:00 Temperature 102.6 F H 101.1 F H Pulse Rate Pulse Rate [Bilateral Dorsalis Pedis] Pulse Rate [Bilateral Radial] Pulse Rate [Monitor] 81 88 Respiratory Rate 16 21 Blood Pressure Blood Pressure [Left Arm] 133/85 128/64 02 Sat by Pulse Oximetry 93 L 94 L Oxygen Delivery Method Mechanical Ventilation Mechanical Ventilation Fraction of Inspired Oxygen 30 30 30 05/12/23 03:56 05/12/23 06:47 05/12/23 06:52 Temperature Pulse Rate 85 90 90 Pulse Rate [Bilateral Dorsalis Pedis] Pulse Rate [Bilateral Radial] Pulse Rate [Monitor] Respiratory Rate 20 Blood Pressure 123/74 123/74 Blood Pressure [Left Arm] 02 Sat by Pulse Oximetry Oxygen Delivery Method Fraction of Inspired Oxygen 30 05/12/23 06:55 05/12/23 06:56 05/12/23 08:49 Temperature 101.1 F H Pulse Rate 88 Pulse Rate [Bilateral Dorsalis Pedis] Pulse Rate [Bilateral Radial] Pulse Rate [Monitor] 90 Respiratory Rate 23 24 Blood Pressure Blood Pressure [Left Arm] 123/76 02 Sat by Pulse Oximetry 93 L Oxygen Delivery Method Mechanical Ventilation Fraction of Inspired Oxygen 30 30 30 05/12/23 08:55 05/12/23 09:00 05/12/23 11:22 Temperature Pulse Rate 86 86 68 Pulse Rate [Bilateral Dorsalis Pedis] Pulse Rate [Bilateral Radial] Pulse Rate [Monitor] Respiratory Rate Blood Pressure 126/58 L 126/58 L 103/51 L Blood Pressure [Left Arm] 02 Sat by Pulse Oximetry Oxygen Delivery Method Fraction of Inspired Oxygen 05/12/23 11:22 05/12/23 09:05 05/12/23 08:00 Temperature Pulse Rate 68 86 Pulse Rate [Bilateral Dorsalis Pedis] Pulse Rate [Bilateral Radial] Pulse Rate [Monitor] Respiratory Rate Blood Pressure 103/51 L 126/58 L Blood Pressure [Left Arm] 02 Sat by Pulse Oximetry Oxygen Delivery Method Fraction of Inspired Oxygen 30 05/12/23 09:00 05/12/23 10:00 05/12/23 11:00 Temperature Pulse Rate Pulse Rate [Bilateral Dorsalis Pedis] Pulse Rate [Bilateral Radial] Pulse Rate [Monitor] Respiratory Rate Blood Pressure Blood Pressure [Left Arm] 02 Sat by Pulse Oximetry Oxygen Delivery Method Fraction of Inspired Oxygen 30 30 30 05/12/23 08:00 05/12/23 12:42 05/12/23 08:00 Temperature 102.9 F H Pulse Rate 66 Pulse Rate [Bilateral Dorsalis Pedis] Pulse Rate [Bilateral Radial] Pulse Rate [Monitor] 86 Respiratory Rate 17 21 Blood Pressure Blood Pressure [Left Arm] 121/66 02 Sat by Pulse Oximetry 93 L Oxygen Delivery Method Mechanical Ventilation Mechanical Ventilation Fraction of Inspired Oxygen 30 30 30 05/12/23 09:00 05/12/23 10:00 05/12/23 11:00 Temperature 103.1 F H 103.3 F H Pulse Rate Pulse Rate [Bilateral Dorsalis Pedis] Pulse Rate [Bilateral Radial] Pulse Rate [Monitor] 88 84 72 Respiratory Rate 22 21 21 Blood Pressure Blood Pressure [Left Arm] 126/58 L 118/55 L 103/51 L 02 Sat by Pulse Oximetry 94 L 95 95 Oxygen Delivery Method Mechanical Ventilation Mechanical Ventilation Mechanical Ventilation Fraction of Inspired Oxygen 30 30 30 05/12/23 12:00 05/12/23 13:00 05/12/23 12:00 Temperature Pulse Rate Pulse Rate [Bilateral Dorsalis Pedis] Pulse Rate [Bilateral Radial] Pulse Rate [Monitor] 62 64 Respiratory Rate 16 20 Blood Pressure Blood Pressure [Left Arm] 84/40 L 116/50 L 02 Sat by Pulse Oximetry 96 94 L Oxygen Delivery Method Mechanical Ventilation Mechanical Ventilation Fraction of Inspired Oxygen 30 30 30 05/12/23 13:00 Temperature Pulse Rate Pulse Rate [Bilateral Dorsalis Pedis] Pulse Rate [Bilateral Radial] Pulse Rate [Monitor] Respiratory Rate Blood Pressure Blood Pressure [Left Arm] 02 Sat by Pulse Oximetry Oxygen Delivery Method Fraction of Inspired Oxygen 30 Labs 05/12/23 07:33 05/12/23 09:43 Assessment/Plan (1) Myasthenic crisis: Assessment/Problem Details: CONSULT REASON: Exacerbation of myasthenia gravis, myasthenic crisis SUBJECTIVE: Remains intubated so cannot provide any history or review of systems. No overnight events. Then this morning he has been having fevers, as high as 103. His dose of IVIG administration has been pushed back today, so we know it is notan infusion reaction. When sedation is held he can still open his eyes and follow commands, per his and nursing staff. EXAMINATION: Intubated. Sedated with propofol. Breathing over the set ventilatory rate. Does not respond to voice or tactile stimuli. Nursing staff notes that when sedation is held he awakens and follows commands. Mild anisocoria, both pupils very small early pinpoint but right pupil 0.5 mm larger than left. Hypoactive reflexes. No pathologic reflexes. DATA REVIEW: -MRI brain February 28, 2018 unremarkable for acute process ASSESSMENT: Myasthenic crisis. Severe exacerbation of myasthenia gravis. Currently intubated. Now febrile Home myasthenia gravis medications were prednisone 10 mg daily and pyridostigmine 60 mg 4 times daily. PLAN: 1. IVIG, 2 g/kg course over 5 days (0.4 g/kg/day), today is day 2 2. Increasing home prednisone 10 mg daily to prednisone 60 mg daily via NG/OG 3. Pyridostigmine discontinued for time being; was certainly contributing to the oral secretion overproduction Code(s): G70.01 - Myasthenia gravis with (acute) exacerbation Status: Acute Documented By: Jamel Packer DO 05/12/231402 Signed By: <Electronically signed by Jamel Packer DO> 05/12/23 1406 [facility] Work Phone: [phone]) 467-232809-22-2023 Progress note Author Stanley Burt [facility] May 12, 2023 11:21am Note Date/Time May 12, 2023 8:32am [facility] [address] [place] [address] Pulmonology Progress Note Signed Patient: Taurus Garcia MR#: [id number] : 1945 Acct:[id number] Age/Sex: 77 / M Adm Date: 3 Loc: Room: [address] [place] [address] Type: ADM IN Attending Dr: Eliezer Newell MD Copies to: ~ Date of Service: 05/12/2023 Subjective Subjective Narrative: Patient has been febrile this morning. Otherwise he has been stable hemodynamically and without significant tachycardia despite fever. Note that patient has a beta-ha as a home medication. Exam Physical Exam Vital Signs: Temp Pulse Resp BP Pulse Ox O2 Del Method FiO2 101.1 F H 90 23 123/76 93 L Mechanical Ventilation 30 05/12/23 06:55 05/12/23 06:55 05/12/23 06:55 05/12/23 06:55 05/12/23 06:55 05/12/23 06:55 05/12/23 06:56 Const Nutritional Appearance: obese Orientation: not alert and not awake HEENT Head: normal to inspection, normocephalic and atraumatic Ears: external ears normal Nose: external nose normal Face and sinus: normal facial exam Mouth: other (8.0 mm ID ET tube) Eyes Eyelids: eyelids normal Neck Neck: normal visual inspection and no lymphadenopathy Chest Chest palpation & inspection: normal inspection of the chest Resp Auscultation: clear to auscultation bilaterally, no rales, no rhonchi and no wheezes Cardio Rate: regular rate Rhythm: regular rhythm Heart Sounds: S1 normal, S2 normal, no gallops, no murmurs and no rubs GI Inspection: normal to inspection Palpation: soft and nontender Auscultation: hypoactive bowel sounds Rectal Exam: deferred General: deferred Skin General: no rashes or lesions noted (warm and dry) Extrem General: no pedal edema Objective Intake and Output I&O - Last 24 Hours: Intake & Output 05/11/23 05/12/23 05/12/23 23:59 07:59 15:59 Intake Total 460 / 2259 1541 / 1541 Output Total 1600 / 4200 550 / 550 Balance -1140 / -1941 991 / 991 Weight 146.8 kg Labs 05/12/23 07:33 05/11/23 03:52 Imaging and Cardiology Chest x-ray: Status: image reviewed by me Additional comments: Date of Service: 05/12/23 XR/XR chest 1V portable: Ett placement Plain film chest single view HISTORY: Follow-up assessment of intubated patient COMPARISON: 05/11/2023 FINDINGS: SUPPORT DEVICES: Tubes unchanged. POSTSURGICAL CHANGES: None HEART: Within normal limits PULMONARY DEVORA: Within normal limits MEDIASTINUM: Unremarkable LUNGS AND PLEURA: No acute lung process, pleural effusion or pneumothorax identified. Continued mild interstitial prominence. BONY STRUCTURES: Intact ADDITIONAL FINDINGS None XR/XR chest 1V portable IMPRESSION: Stable chest Additional Results Results Comments: 05/12/23 04:02 ABG pH 7.43 ABG pCO2 49.3 H ABG pO2 72.1 L ABG HCO3 31.7 H ABG Total CO2 33.2 H ABG O2 Saturation 95.5 ABG O2 Content 8.8 ABG Base Excess 6.1 H 10/500/30/5 Assessment/Plan Assessment/Plan (1) Acute respiratory failure with hypoxia: (2) Myasthenic crisis: (3) CKD (chronic kidney disease) stage 3, GFR 30-59 ml/min: (4) Obstructive sleep apnea: Plan Hospital day #2, ventilator day #2 for patient with history of myasthenia gravisas well as prior pulmonary embolism who was transferred from outside hospital ([place]) with progressive decompensation likely related to myasthenia gravis exacerbation. Patient was intubated for airway protection and has been febrile though chest x- ray appears unchanged without obvious evidence of aspiration. Blood cultures are pending and sputum as well as urine cultures will also be sent. We will hold on antibiotics for the present time. We will try to aggressively cool the patient but feel that we should continue with IVIG as the patient needs this for his myasthenia gravis. Patient is getting nutritional support and continues with beta-ha, full anticoagulation with apixaban, andstress ulcer prophylaxis. I have no new recommendations and will continue to hold antibiotics but would have a low threshold to initiate antibiotics particularly if patient should develop any indication of hemodynamic instability. Documented By: Stanley Burt MD 3 0829 Signed By: <Electronically signed by MD Stanley Burt> 05/12/[address] [place] [address] Ctr Work Phone: [phone]) [phone] Progress note Author Eliezer Newell [facility] May 12, 2023 12:47am Note Date/Time May 11, 2023 4:12pm [facility] [address] [place] [address] Hospitalist Progress Note Signed Patient: Taurus Garcia MR#: [id number] : 1945 Acct:[id number] Age/Sex: 77 / M Adm Date: 3 Loc: Room: [address] [place] [address] Type: ADM IN Attending Dr: Eliezer Newell MD Copies to: ~ Date of Service: 05/11/2023 Subjective Subjective Narrative: Assessment And Plan 77M with PMH of HTN, HLD, Myasthenia Gravis(Dx 2017), CKD, PE (On Eliquis) who was admitted to [facility] 05/09 for generalized weakness. He was intubated there then transferred for the evaluation and treatment of suspected acute myasthenia gravis exacerbation. Acute respiratory failure The patient required intubation at [facility] CXR 05/11 shows Continued cardiomegaly and mild parenchymal changes. Maintain O2 supplement via Mechanical ventilator PPI for GI Prophylaxis Keep head of bed > 30 degree Pulmonary consulted recommendation appreciated myasthenia gravis exacerbation Agree with IVIG and increase prednisone dose Pyridostigmine on hold Neurology was consulted, recommendation appreciated. INTERVAL HPI: As Above, Pt resting in bed. sedated and intubated Chronic diseases: Unless mentioned Above, Essential home medications have been continued. DVT Px: Addressed Disposition: To be determined Plan of care Discussed with: the medical team, the Exam Physical Exam Vital Signs: Temp Pulse Resp BP Pulse Ox O2 Del Method FiO2 36.4 C 53 L 12 129/61 95 Mechanical Ventilation 30 05/11/23 12:00 05/11/23 16:05 05/11/23 14:00 05/11/23 16:05 05/11/23 14:00 05/11/23 14:00 05/11/23 14:00 Narrative: GENERAL: on acute stress, Intubated NECK: no JVD, supple LUNGS: Bibasilar crackles. on MV CARDIAC: normal S1 and S2; no rubs, murmurs, or gallops ABDOMEN: Abdomen soft. BS normal. No palpable masses or organomegaly. EXTREMITIES: no edema in LE bilaterally NEURO: Limited Exam, Sedated and intubated PSYCH: Sedated and intubated Objective Lab Results 05/11/23 03:52 05/11/23 03:52 ABG Interpretation ABG results: 05/11/23 04:26 ABG pH 7.36 ABG pCO2 45.6 H ABG pO2 104.3 H ABG HCO3 24.9 ABG Total CO2 26.3 ABG O2 Saturation 97.5 ABG O2 Content 8.4 ABG Base Excess -0.9 Meds Allergies and Active Meds Allergies No Known Allergies Allergy (Verified 12/27/17 16:51) Active Meds: Active Medications Generic Name Dose Route Start Last Admin Trade Name Freq PRN Reason Stop Dose Admin Acetaminophen 650 mg 05/11/23 01:00 Acetaminophen 325 Mg Tablet PO 05/10/24 00:59 Q6HR PRN Pain Scale 1 - 3 or fever Albuterol 6 puff 05/11/23 06:00 05/11/23 11:47 Albuterol Hfa 200 Puff/18 Gm Inhaler VENT 05/10/24 05:59 6 puff Q6HR DORI Administration Apixaban 5 mg 05/11/23 09:00 05/11/23 08:57 Apixaban 5 Mg Tablet PO 05/10/24 08:59 5 mg BID DORI Administration Atorvastatin Calcium 20 mg 05/11/23 22:00 Atorvastatin 20 Mg Tablet PO 05/10/24 21:59 HS DORI Chlorhexidine Gluconate 15 ml 05/11/23 09:00 05/11/23 08:57 Chlorhexidine Gluconate 0.12% 15 Ml Udc MUCOUS MEM 05/10/24 08:59 15 ml BID DORI Administration Dextrose 0 gm 05/11/23 09:43 Dextrose 50% In Water 25 Gm/50 Ml Syringe IV-PUSH 05/10/24 09:42 PRN PRN Hypoglycemia Furosemide 20 mg 05/11/23 11:45 05/11/23 11:54 Furosemide 20 Mg Tablet PO 05/10/24 11:44 20 mg DAILY DORI Administration Hydralazine HCl 50 mg 05/11/23 11:45 05/11/23 11:54 Hydralazine 50 Mg Tablet PO 05/10/24 11:44 50 mg BID DORI Administration Propofol 1,000 mg in 100 mls @ 44.31 mls/hr 05/11/23 00:45 05/11/23 16:05 Diprivan IV 05/10/24 00:44 40 mcg/kg/min .Q2H16M DORI 35.45 mls/hr Administration Protocol 50 MCG/KG/MIN Lactated Ringer's 1,000 mls @ 75 mls/hr 05/11/23 02:00 05/11/23 16:04 Lactated Ringers IV 05/10/24 01:59 75 mls/hr .[id number] DORI Administration Immune Globulin 30 gm in 300 mls @ 0 mls/hr 05/11/23 09:00 05/11/23 09:53 Gammagard 10% 30 Gm/300 Ml IV 05/16/23 08:59 73 mls/hr DAILY DORI Administration Protocol Per Protocol Immune Globulin 30 gm in 300 mls @ 0 mls/hr 05/11/23 09:00 05/11/23 11:44 Gammagard 10% 30 Gm/300 Ml IV 05/16/23 08:59 443 mls/hr DAILY DORI Administration Protocol Per Protocol Insulin Aspart 0 units 05/11/23 12:00 05/11/23 12:50 Insulin Aspart 300 Units/3 Ml Insuln.Pen SUBCUT 05/10/24 11:59 2 units Q6HR DORI Administration Protocol Lisinopril 20 mg 05/11/23 11:45 05/11/23 11:54 Lisinopril 20 Mg Tablet PO 05/10/24 11:44 20 mg DAILY DORI Administration Loratadine 10 mg 05/12/23 09:00 Loratadine 10 Mg Tablet PO 05/11/24 08:59 DAILY DORI Nebivolol 10 mg 05/11/23 11:45 05/11/23 13:00 Nebivolol 5 Mg Tablet PO 05/10/24 11:44 10 mg DAILY DORI Administration Pantoprazole Sodium 40 mg 05/11/23 09:00 05/11/23 08:57 Pantoprazole 40 Mg Vial IV-PUSH 05/10/24 08:59 40 mg DAILY DORI Administration Prednisone 60 mg 05/11/23 09:00 05/11/23 08:57 Prednisone 20 Mg Tablet PO 05/10/24 08:59 60 mg DAILY DORI Administration Propofol 0 mg 05/11/23 00:23 Propofol - Infusion Bolus 1,000 Mg/100 Ml Vial IV 05/10/24 00:22 PROTOCOL PRN Bolus Documentation Sodium Chloride 10 ml 05/11/23 01:30 Sodium Chloride 0.9 % 10 Ml Syringe IV-PUSH 05/10/24 01:29 PRN PRN Flush Sodium Chloride 10 ml 05/11/23 01:30 05/11/23 08:57 Sodium Chloride 0.9 % 10 Ml Vial.Pf INJECTION 05/10/24 01:29 10 ml PRN PRN Administration Dilution Triamterene/Hydrochlorothiazide 1 tab 05/12/23 09:00 Triamterene/Hctz 37.5-25mg 1 Tab Tablet PO 05/11/24 08:59 DAILY DORI Documented By: Eliezer Newell MD 05/11/23 1608 Signed By: <Electronically signed by Eliezer Newell MD> 05/12/23 0047 [facility] Work Phone: 1(151) [phone] Consult note Author Jamel Packer [facility] May 11, 2023 1:53pm Note Date/Time May 11, 2023 12:06pm [facility] [address] [place] [address] Neurology Consult Note Signed Patient: Taurus Garcia MR#: [id number] : 1945 Acct:[id number] Age/Sex: 77 / M Adm Date: 3 Loc: Room: [address] [place] [address] Type: ADM IN Attending Dr: Eliezer Newell MD Copies to: DO Komal Bajwa II, MD Marwan Wassouf, MD~ HPI Consult Date: 05/11/23 [employer] Operator: Jamel Packer DO [facility] Medical History Acute exacerbation of myasthenia gravis Congenital myasthenia gravis HTN (hypertension) Pulmonary emboli Family History Other Hypertension Social History Smoking Status: Never smoker Substance Use Type: Alcohol Substance Abuse Comment: little etoh Meds Medications and Allergies Allergies No Known Allergies Allergy (Verified 12/27/17 16:51) Home Medications hydralazine 50 mg tablet 50 mg PO BID 12/27/17 [History Confirmed 05/10/23] lisinopril 20 mg tablet 20 mg PO DAILY 12/27/17 [History Confirmed 05/10/23] loratadine 10 mg tablet (Allergy Relief (loratadine)) 10 mg PO DAILY 12/27/17 [History Confirmed 05/10/23] qinfffyf-isv-wqbnv acid 0.4 mg-lycopene 300 mcg-lutein 250 mcg tablet (Adults 50Plus) 1 tab PO DAILY 12/27/17 [History Confirmed 05/10/23] omega-3 fatty acids-fish oil 360 mg-1,200 mg capsule (Fish Oil) 1 cap PO BID 12/27/17 [History Confirmed 05/10/23] prednisone 10 mg tablet 10 mg PO DAILY 12/27/17 [History Confirmed 05/10/23] pyridostigmine bromide 60 mg tablet 1 tab PO QID 12/27/17 [History Confirmed 05/10/23] simvastatin 40 mg tablet 40 mg PO HS 12/27/17 [History Confirmed 05/10/23] triamterene 37.5 mg-hydrochlorothiazide 25 mg tablet (Maxzide-25mg) 1 tab PO DAILY 12/27/17 [History Confirmed 05/10/23] baclofen 10 mg tablet 1 tab PO Q8H 12/15/18 [History Confirmed 05/10/23] apixaban 5 mg (74 tabs) tablets in a dose pack 5 mg PO Q12H 05/10/23 [History Confirmed 05/10/23] furosemide 20 mg tablet 20 mg PO DAILY 05/10/23 [History Confirmed 05/10/23] nebivolol 10 mg tablet 10 mg PO DAILY 05/10/23 [History Confirmed 05/10/23] potassium chloride 10 mEq tablet,extended release(part/cryst) 10 meq PO DAILY 05/10/23 [History Confirmed 05/10/23] Exam Physical Exam Vital Signs: Temp Pulse Resp BP Pulse Ox O2 Del Method FiO2 97.9 F 48 L 10 L 170/74 H 96 Mechanical Ventilation 30 05/11/23 08:00 05/11/23 11:54 05/11/23 11:00 05/11/23 11:54 05/11/23 11:00 05/11/23 11:00 05/11/23 11:00 Results Laboratory Findings 05/11/23 03:52 05/11/23 03:52 Diagnostic Findings Imaging/Impressions: ITS Impressions Abdomen X-Ray 05/10/23 23:39 IMPRESSION: NG TUBE WITHIN THE STOMACH. Impression dictated by: Aide Moe M.D.05/11/2023 7:15 AM Dictation Location: [place] [address] Chest X-Ray 05/11/23 05:19 IMPRESSION: Continued cardiomegaly and mild parenchymal changes. Impression dictated by: Aide Moe M.D.05/11/2023 7:14 AM Dictation Location: [place] [address] Assessment/Plan (1) Myasthenic crisis: Assessment/Problem Details: CONSULT REASON: Exacerbation of myasthenia gravis, myasthenic crisis HPI: 77-year-old man. History is obtained from his , Gabrielle. History of myasthenia gravis, which was diagnosed back in 2017 when he developed ptosis andshe thinks that he had positive antibodies but cannot quite remember. He has never had any severe exacerbations but did get 3 days of IVIG once. 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 Transferred from [facility]. Initially presented there on May 09, 2023 complaining of 3 daysof weakness. He had some urinary symptoms as well, and he and his assumed he might just have a UTI. On presentation he was hypoxic to 88% pulse ox. He had some difficulty swallowing and difficulty clearing his airways, had excessive secretions. He was intubated on May 10, 2023 prior to transfer here for worsening generalized weakness and inability to clear his airway secretions. Neurologically pertinent home medications include prednisone 10 mg daily, pyridostigmine 60 mg 4 times daily, apixaban 5 mg twice daily. EXAMINATION: Intubated. Sedated with propofol. Breathing over the set ventilatory rate. Does not respond to voice or tactile stimuli. Nursing staff notes that when sedation is held he awakens and follows commands. Mild anisocoria, both pupils very small early pinpoint but right pupil 0.5 mm larger than left. Hypoactive reflexes. No pathologic reflexes. DATA REVIEW: -MRI brain February 28, 2018 unremarkable for acute process ASSESSMENT: Myasthenic crisis. Severe exacerbation of myasthenia gravis, possibly precipitated by UTI. Currently intubated. Home myasthenia gravis medications were prednisone 10 mg daily and pyridostigmine 60 mg 4 times daily. PLAN: 1. IVIG, 2 g/kg course over 5 days (0.4 g/kg/day), today is day 1 2. Increasing home prednisone 10 mg daily to prednisone 60 mg daily via NG/OG 3. Pyridostigmine discontinued for time being; was certainly contributing to the oral secretion overproduction Code(s): G70.01 - Myasthenia gravis with (acute) exacerbation Status: Acute Documented By: Jamel Packer DO 05/11/23 1201 Signed By: <Electronically signed by Jamel Packer DO> 05/11/23 0270 [facility] Work Phone: 1(455) 151-319909-21-2023 Consult note Author Lexy Chappell [facility] May 11, 2023 12:44pm Note Date/Time May 11, 2023 12:45pm [facility] [address] [place] [address] Pulmonology Consult Note Signed Patient: Taurus Garcia MR#: [id number] : 1945 Acct:[id number] Age/Sex: 77 / M Adm Date: 3 Loc: Room: [address] [place] [address] Type: ADM IN Attending Dr: Eliezre Newell MD Copies to: MD Lexy Gonsalves II, MD Marwan Wassouf, MD~ HPI Date/Time of Consultation: Date of Service: 05/11/2023 Time of Service: 12:40 Consulting Provider: Lexy Chappell Requesting Provider: Eliezer Newell History of Present Illness History of present illness: Mr. Garcia is a 77 year old male with history of myasthenia gravis who had been followed by neurology in the past, patient also has a history of pulmonary emboli who presented to [facility] with weakness, swallowing difficulties, and shortness of breath, he developed progressive decompensation while hospitalized was having difficulty clearing his oral secretions, unable to swallow, was noted to have oxygen desaturations and respiratory failure for which she was intubated and transferred to us. His chest x-ray showed no significant infiltrates. He is currently oxygenating well on 30% FiO2. Sedatedbut arousable to voice. Patient was maintained on systemic steroids, his baseline chronic dose was 10 mg of prednisone currently increased to 60 mg, he also was started on IVIG for 5 days. Review of Systems Review of Systems Review of systems: As mentioned above otherwise unremarkable [facility] Medical History Acute exacerbation of myasthenia gravis Congenital myasthenia gravis HTN (hypertension) Pulmonary emboli Family History Other Hypertension Social History Smoking Status: Never smoker Substance Use Type: Alcohol Substance Abuse Comment: little etoh Meds Medications and Allergies Allergies No Known Allergies Allergy (Verified 12/27/17 16:51) Home Medications hydralazine 50 mg tablet 50 mg PO BID 12/27/17 [History Confirmed 05/10/23] lisinopril 20 mg tablet 20 mg PO DAILY 12/27/17 [History Confirmed 05/10/23] loratadine 10 mg tablet (Allergy Relief (loratadine)) 10 mg PO DAILY 12/27/17 [History Confirmed 05/10/23] kdksknuh-knn-fnupv acid 0.4 mg-lycopene 300 mcg-lutein 250 mcg tablet (Adults 50Plus) 1 tab PO DAILY 12/27/17 [History Confirmed 05/10/23] omega-3 fatty acids-fish oil 360 mg-1,200 mg capsule (Fish Oil) 1 cap PO BID 12/27/17 [History Confirmed 05/10/23] prednisone 10 mg tablet 10 mg PO DAILY 12/27/17 [History Confirmed 05/10/23] pyridostigmine bromide 60 mg tablet 1 tab PO QID 12/27/17 [History Confirmed 05/10/23] simvastatin 40 mg tablet 40 mg PO HS 12/27/17 [History Confirmed 05/10/23] triamterene 37.5 mg-hydrochlorothiazide 25 mg tablet (Maxzide-25mg) 1 tab PO DAILY 12/27/17 [History Confirmed 05/10/23] baclofen 10 mg tablet 1 tab PO Q8H 12/15/18 [History Confirmed 05/10/23] apixaban 5 mg (74 tabs) tablets in a dose pack 5 mg PO Q12H 05/10/23 [History Confirmed 05/10/23] furosemide 20 mg tablet 20 mg PO DAILY 05/10/23 [History Confirmed 05/10/23] nebivolol 10 mg tablet 10 mg PO DAILY 05/10/23 [History Confirmed 05/10/23] potassium chloride 10 mEq tablet,extended release(part/cryst) 10 meq PO DAILY 05/10/23 [History Confirmed 05/10/23] Exam Physical Exam Vital Signs: Temp Pulse Resp BP Pulse Ox O2 Del Method FiO2 97.6 F 50 L 12 166/81 H 97 Mechanical Ventilation 30 05/11/23 12:00 05/11/23 12:00 05/11/23 12:00 05/11/23 12:00 05/11/23 12:00 05/11/23 12:00 05/11/23 12:00 Narrative: General: Patient is sedated, intubated, on the vent, appears comfortable, overweight gentleman who appears in no distress at this point Eyes: Pupils equal round reactive to light HEENT: Normocephalic, atraumatic, oral mucosa moist Neck: Supple no lymphadenopathy or thyromegaly Cardiovascular: S1, S2, normal sounds, no murmurs or gallops noted, regular rhythm Lungs: Adequate air entry bilaterally, clear to auscultation Extremities: Trace ankle edema Neurologic: Sedated, intubated, on the vent, very limited exam at this point Results Intake and Output I&O - Last 24 Hours: Intake & Output 05/10/23 05/11/23 05/11/23 23:59 07:59 15:59 Intake Total 300 / 500 200 / 500 Output Total 1200 / 1200 Balance -900 / -700 200 / -700 Weight 147.7 kg 147.7 kg 147.7 kg Labs 05/11/23 03:52 05/11/23 03:52 Assessment/Plan (1) Acute respiratory failure with hypoxia: (2) Myasthenic crisis: (3) CKD (chronic kidney disease) stage 3, GFR 30-59 ml/min: (4) Obstructive sleep apnea: Plan * Will maintain invasive ventilatory support and an endotracheal tube in place to protect airway, awaiting neurologic improvement, treatment recommendations were noted, per neurology, and appreciated. Treated with higher dose systemic steroids and IVIG. * Patient remains on apixaban for anticoagulation given his history of PE * Monitor blood gases and x-rays, trials of weaning when neurologically improved Documented By: Lexy Chappell MD 05/11/230 Signed By: <Electronically signed by Lexy Chappell MD> 05/11/23 1244 [facility] Work Phone: 1(584) 537-843409-21-2023 History and physical note Author Jarret Garza [facility] May 11, 2023 1:33am Note Date/Time May 11, 2023 1:07am [facility] [address] [place] [address] Hospitalist H&P Signed Patient: Taurus Garcia MR#: [id number] : 1945 Acct:[id number] Age/Sex: 77 / M Adm Date: 3 Loc: 4C Room: 2U4930-6 Type: ADM IN Attending Dr: Jarret Garza MD Copies to: MD Jarret Gonsalves II, MD~ HPI DATE OF EXAMINATION: 05/11/23 CHIEF COMPLAINT: Acute exacerbation of myasthenia gravis HISTORY OF PRESENT ILLNESS: Patient is a 77-year-old male with 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 Patient presented to [facility] on 05/09/2023 complaining of weakness over3 days with intermittent diaphoresis and he thought he might of have UTI, he stated that he could not handle his urine and is feeling weak overall. Patient lives independently with his and his brought him in as she thought he might have had a UTI. Denies any cough, shortness of breath, abdominal pain, urinary complaints. On presentation he was hypoxic down to 88%. He was initially admitted there for observation then converted to inpatient since patient was complaining of difficulty swallowing and difficulty clearing his airways. Patient was admitted there for acute hypoxic respiratory failure. He did have lactic acidosis on presentation which had resolved. He does have CKD stage III. With his worsening generalized weakness and inability to clear his airway secretions, patient was intubated at [facility]. They reached outto our neurology service and discussed possibility of acute exacerbation of myasthenia gravis. Neurology accepted to see the patient on consult here for which patient was transferred to our facility for further evaluation and management. Review of Systems Review of Systems Unobtainable due to endotracheal tube [facility] Medical History Acute exacerbation of myasthenia gravis Congenital myasthenia gravis HTN (hypertension) Pulmonary emboli Family History Other Hypertension Social History Smoking Status: Never smoker Substance Use Type: Alcohol Substance Abuse Comment: little etoh Meds Medications and Allergies Allergies No Known Allergies Allergy (Verified 12/27/17 16:51) Home Medications hydralazine 50 mg tablet 50 mg PO BID 12/27/17 [History Confirmed 05/10/23] lisinopril 20 mg tablet 20 mg PO DAILY 12/27/17 [History Confirmed 05/10/23] loratadine 10 mg tablet (Allergy Relief (loratadine)) 10 mg PO DAILY 12/27/17 [History Confirmed 05/10/23] dklbtkej-gvz-adoqj acid 0.4 mg-lycopene 300 mcg-lutein 250 mcg tablet (Adults 50Plus) 1 tab PO DAILY 12/27/17 [History Confirmed 05/10/23] omega-3 fatty acids-fish oil 360 mg-1,200 mg capsule (Fish Oil) 1 cap PO BID 12/27/17 [History Confirmed 05/10/23] prednisone 10 mg tablet 10 mg PO DAILY 12/27/17 [History Confirmed 05/10/23] pyridostigmine bromide 60 mg tablet 1 tab PO QID 12/27/17 [History Confirmed 05/10/23] simvastatin 40 mg tablet 40 mg PO HS 12/27/17 [History Confirmed 05/10/23] triamterene 37.5 mg-hydrochlorothiazide 25 mg tablet (Maxzide-25mg) 1 tab PO DAILY 12/27/17 [History Confirmed 05/10/23] baclofen 10 mg tablet 1 tab PO Q8H 12/15/18 [History Confirmed 05/10/23] apixaban 5 mg (74 tabs) tablets in a dose pack 5 mg PO Q12H 05/10/23 [History Confirmed 05/10/23] furosemide 20 mg tablet 20 mg PO DAILY 05/10/23 [History Confirmed 05/10/23] nebivolol 10 mg tablet 10 mg PO DAILY 05/10/23 [History Confirmed 05/10/23] potassium chloride 10 mEq tablet,extended release(part/cryst) 10 meq PO DAILY 05/10/23 [History Confirmed 05/10/23] Exam Physical Exam Vital Signs: Temp Pulse Resp BP Pulse Ox O2 Del Method FiO2 97.8 F 54 L 14 129/61 95 Mechanical Ventilation 40 05/10/23 23:39 05/11/23 00:24 05/11/23 00:24 05/11/23 00:24 05/11/23 00:24 05/11/23 00:26 05/11/23 00:26 Narrative: Const General: Intubated and sedated HEENT Normal oropharyngeal mucosa without any ulcers or exudates ETT in place Eyes: Conjunctiva normal Pulmonary Auscultation: clear to auscultation , no crackles, no wheezes Cardiovascular Rate: Slightly bradycardic Rhythm: regular rhythm Heart Sounds: S1 normal, S2 normal and no murmurs GI Inspection: Obese Palpation: soft, not firm and nontender. No rigidity or rebound. Deferred Neuro General: Intubated and sedated Extrem General: no cyanosis, no pedal edema Results Lab Results Labs: Laboratory Last Values POC Glucose 171 mg/dl 05/11/23 00:39 Assessment & Plan Assessment/Plan (1) Acute exacerbation of myasthenia gravis: (2) Acute respiratory failure with hypoxia: (3) CKD (chronic kidney disease) stage 3, GFR 30-59 ml/min: Plan -Afebrile here, no leukocytosis from most recent labs at [place]. Repeat labs in am -Will start antibiotics if any obvious source of infection -Repeat UA, CXR -IV steroids -Optimize electrolytes -Maintain sedation for now with propofol -Adequate IV fluids resuscitation -We will restart blood pressure medications as needed -Admit to ICU -Neurology consult. Will start IVIG if neurology agreeable to this plan. -Critical care consult Diet: Tube feeds DVT ppx: Eliquis GI ppx: Protonix Code status: Full Disposition: Inpatient status IP vs OBS Justification Based on differential dx, clinical care plan, and risk of adverse events, if untreated, in my clinical judgement this patient requires an acute care setting as: INPATIENT because of an expectation of an over 2 midnight stay. Estimated length of stay (# of days): 5 Documented By: Jarret Garza MD 05/11/23 06 Signed By: <Electronically signed by Jarret Garza MD> 05/11/23 0133 [facility] Work Phone: 1(433) 774-589502-28-2023 History of Present illness Narrative* Addison Harvey MD - 10/18/2022 12:48 PM EST Physician Progress Note PATIENT: TAURUS GARCIA CSN #: [id number] : 1945 ADMIT DATE: 10/15/2022 6:59 PM DISCH DATE: RESPONDING PROVIDER #: Addison Harvey MD QUERY TEXT: Patient admitted with weakness, fatigue, c/o fever at home. Documentation reflects sepsis due to urological source offered in H&P on 10/15. If possible, please document in the progress notes and discharge summary if sepsis was: The medical record reflects the following: Risk Factors: second tx on 10/13/2022 of BCG treatment with harrell insertion and believed to be cause of hematuria. high-grade nonmuscle invasive bladder cancer. Immunosuppressed due to steroids for myasthenia gravis Clinical Indicators: c/o fever at home, fatigue, diarrhea and weakness with near syncopal episode of legs buckling before admission. UA- 10/16 - UA - large blood, cloudy, moderate ketones, small leuk est, wbc - 50-100. WBC- 6.3, 6.6, Heartrate- 65-64, Temp.- 100.-98.6 - noted as fever at home with not taking temp. RR<20. procal- 0.20, CRP- 86.3, no lactic acid. Treatment: Urine culture pending. IVF- NS @ 100, IV Cefepime 2 gm every 12 hours -started on 10/16. PO Lactobacillus. Thank you, please contact me for any questions. Danie Maldonado RN, CDS cell- [phone] office hours - [id number] Options provided: -- sepsis due to UTI confirmed after study -- sepsis due to UTI treated and resolved, POA -- sepsis ruled out after study and only UTI -- Other - I will add my own diagnosis -- Disagree - Not applicable / Not valid -- Disagree - Clinically unable to determine / Unknown -- Refer to Clinical Documentation Reviewer PROVIDER RESPONSE TEXT: sepsis ruled out after study and only UTI. Query created by: Danie Maldonado on 10/17/2022 12:39 PM Electronically signed by: Addison Harvey MD 10/18/2022 12:47 PM * Jovan Morales MD - 10/18/2022 7:38 AM EST Urology Progress Note Subjective: Taurus Garcia is a 77 y.o. male. His/Her current Diet is: ADULT DIET; Regular. Since the previous note, the patient reports the following: No acute issues overnight. No fevers or chills. No nausea or vomiting. Ambulating Vitals and Labs: Vitals: 10/17/22 1115 10/17/22 2042 10/17/22 2345 10/18/22 0344 BP: (!) 131/59 122/64 Pulse: 64 64 Resp: 16 20 16 16 Temp: 98.5 F (36.9 C) 97.8 F (36.6 C) TempSrc: Oral Temporal SpO2: (!) 87% 91% Weight: Height: I/O last 3 completed shifts: In: - Out: 3100 [Urine:3100] Recent Labs 10/16/22 0915 10/17/22 0819 10/18/22 0600 WBC 6.3 6.6 6.2 HGB 10.2* 10.5* 10.2* HCT 33.5* 36.9* 35.2* MCV 73.8* 78.0* 76.9* PLT See Reflexed IPF Result 185 198 Recent Labs 10/16/22 0553 10/17/22 0819 10/18/22 0600 NA 138 139 140 K 3.6* 3.6* 3.2* CL 104 102 102 CO2 22 23 BUN 16 19 17 CREATININE 1.13 1.09 1.17 Recent Labs 10/16/22 1320 COLORU Yellow PHUR 5.5 WBCUA 50 TO 100 RBCUA TOO NUMEROUS TO COUNT SPECGRAV 1.023 LEUKOCYTESUR SMALL* UROBILINOGEN Normal BILIRUBINUR NEGATIVE Physical Exam: NAD A/O x 3 RRR No accessory muscles of inspiration Abdomen soft, non-tender, non-distended. No CVA tenderness. Harrell in place. Clear yellow UOP. No calf pain. EPCs on. Machine turned on. Results: Urine culture no growth Impression: 77-year-old male with suspected sepsis from urinary source S/p BCG installation for bladder cancer on 10/13/2022 UA positive for bacteria Immunosuppressed due to steroids for myasthenia gravis Patient Active Problem List Diagnosis Fever, unspecified Bladder cancer (HCC) Gross hematuria Malaise and fatigue Acute weakness Myasthenia gravis (HCC) JAMISON (obstructive sleep apnea) Current chronic use of systemic steroids Type 2 diabetes mellitus with diabetic neuropathy, without long-term current use of insulin (HCC) Morbid obesity (HCC) Hyponatremia Hypokalemia Acute retention of urine Hypomagnesemia Hypocalcemia CRP elevated Elevated procalcitonin Bandemia SIRS (systemic inflammatory response syndrome) (HCC) Plan: Removed harrell catheter, void trial this morning Appreciate infectious disease recommendations No active urologic intervention planned Please call urology for any further questions Jovan Morales MD 7:38 AM 10/18/2022 * Silke Haney RN - 10/18/2022 2:14 AM EST Pt tele needing new patches multiple times this shift. When this check writer salesperson went to pt room due to telemonitor alarming that the tele was off pt was found sitting on the side of the bed and tele box wason the floor. Upon asking pt what happened he stated that it fell off. He removed it 2 more times when getting up to go to the bathroom. Last time he was asked about it being off he stated that it just falls off and he is going home tomorrow morning so there is no need to wear it. call or contact centre manager FUR COMBER for hospitalist group notified. * Colten Rosen RCP - 10/17/2022 9:43 PM EST Pt has own CPAP machine from home Unit was checked. * Wilton Suazo, PT - 10/17/2022 2:55 PM EST Physical Therapy Facility/Department: [facility] [[email or web address]] RENAL//MED SURG Physical Therapy Initial Assessment Name: Taurus Garcia : 1945 Date of Service: 10/17/2022 Impression: 77-year-old male with suspected sepsis from urinary source S/p BCG installation for bladder cancer on 10/13/2022 UA positive for bacteria Immunosuppressed due to steroids for myasthenia gravis Discharge Recommendations: Patient would benefit from continued therapy after discharge PT Equipment Recommendations Equipment Needed: No Patient Diagnosis(es): There were no encounter diagnoses. Past Medical History: has a past medical history of Pulmonary embolism (HCC). Past Surgical History: has no past surgical history on file. Assessment Body Structures, Functions, Activity Limitations Requiring Skilled Therapeutic Intervention: Decreased functional mobility ;Decreased strength;Decreased endurance Assessment: The pt ambulated 35 ft with a std walker x CGA. He reported no dizziness or significantfatigue with mobilization. Will continue PT for gait and strengthening Therapy Prognosis: Good Decision Making: Medium Complexity Requires PT Follow-Up: Yes Activity Tolerance Activity Tolerance: Patient limited by fatigue;Patient limited by endurance Plan Physcial Therapy Plan General Plan: (5-6x wk) Current Treatment Recommendations: Strengthening, Functional mobility training, Transfer training, Endurance training, Stair training, Gait training, Safety education & training Safety Devices Type of Devices: Nurse notified, Left in chair, Call light within reach Restraints Restraints Initially in Place: No Restrictions Position Activity Restriction Other position/activity restrictions: Up with assist Subjective General Patient assessed for rehabilitation services?: Yes Response To Previous Treatment: Not applicable Family / Caregiver Present: No Follows Commands: Within Functional Limits Subjective Subjective: The pt reports a 1/10 pain in his R shld Social/Functional History Social/Functional History Lives With: Spouse Type of Home: Apartment Home Layout: One level Home Access: Stairs to enter with rails Entrance Stairs - Number of Steps: 2 steps one rail Bathroom Shower/Tub: Tub/Shower unit Bathroom Toilet: Standard Bathroom Equipment: Shower chair, Grab bars in shower, Toilet raiser Receives Help From: Family ADL Assistance: Independent Homemaking Assistance: Independent Homemaking Responsibilities: Yes Ambulation Assistance: Independent Transfer Assistance: Independent Active Hardscape Foreman: Yes Mode of Transportation: Car 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 Vision/Hearing Vision Vision: Impaired Vision Exceptions: Wears glasses at all times Hearing Hearing: Exceptions to WFL Hearing Exceptions: Hard of hearing/hearing concerns Cognition Orientation Overall Orientation Status: Within Functional Limits Orientation Level: Oriented X4 Cognition Overall Cognitive Status: WFL Objective Heart Rate: 64 Heart Rate Source: Monitor BP: (!) 131/59 MAP (Calculated): 83 Resp: 16 SpO2: (!) 87 % AROM RLE (degrees) RLE AROM: WNL AROM LLE (degrees) LLE AROM : WNL AROM RUE (degrees) RUE AROM : WNL AROM LUE (degrees) LUE AROM : WNL Strength RLE Strength RLE: WNL Strength LLE Strength LLE: WNL Strength RUE Strength RUE: WFL Strength LUE Strength LUE: WFL Bed mobility Supine to Sit: Contact guard assistance Sit to Supine: Contact guard assistance Scooting: Contact guard assistance Transfers Sit to Stand: Contact guard assistance Stand to Sit: Contact guard assistance Ambulation Surface: Level tile Device: Standard Walker Assistance: Contact guard assistance Distance: amb 35 ft with a std walker x CGA Balance Posture: Good Sitting - Static: Good Sitting - Dynamic: Fair Standing - Static: Good Standing - Dynamic: Fair OutComes Score AM-PAC Score AM-PAC Inpatient Mobility Raw Score : 21 (10/17/221435) AM-PAC Inpatient T-Scale Score : 50.25 (10/17/221435) Mobility Inpatient CMS 0-100% Score: 28.97 (10/17/221435) Mobility Inpatient CMS G-Code Modifier : CJ (10/17/221435) Tinneti Score Goals Short Term Goals Time Frame for Short Term Goals: 10 visits Short Term Goal 1: transfers with SBA Short Term Goal 2: amb 150 ft with or without a device x SBA Short Term Goal 3: ascend/descend 4 steps with SBA Short Term Goal 4: 20 min strengthening exercise program x SBA Education Patient Education Education Given To: Patient Education Provided: Role of Therapy;Plan of Care Education Method: Verbal Barriers to Learning: None Education Outcome: Verbalized understanding Therapy Time Individual Concurrent Group Co-treatment Time In 1350 Time Out 1415 Minutes 25 Wilton Suazo PT * Honorio Vuong MD - 10/17/2022 11:11 AM EST Images from the original note were not included. [facility] Office: [phone] Dharmesh Barbosa DO, Taurus Hoover DO, Jae Vela DO, Aaron Dobson DO, Tu Diallo MD, Marisabel Roldan MD, Tiara Chambers MD, Lena Guerra MD, Honorio Vuong MD, Addison Harvey MD, Caleb Espinoza DO, Enrico Myers MD, Shae Sanches DO, Eliel Rizzo MD, Maulik Regan MD, Danie Barbosa DO, Gracia Altamirano MD, Uziel Nesbitt MD, Real De La Cruz DO, Haven Uribe MD, Nicolle Barros MD, Risa Chawla MD, Diann Vang MD, Stanley Valdes DO, Viri Sesay MD, Israel Lara MD, Marcelle Decker, WAGON PERSON, Adore Fraga, WAGON PERSON, Jolly Cardona, WAGON PERSON, Komal Bauer, WAGON PERSON, Malaika Ortiz, [facility], Cynthia Amado, WAGON PERSON, Dee Lazo, WAGON PERSON, Joana Ponce, WAGON PERSON, Brittney Castro, WAGON PERSON, Teresita Robb, WAGON PERSON, Jarrod Ladd PA-C, Eliza Majano, COREMAKER HELPER, Susanne Mock, WAGON PERSON, Jaja Stanton, WAGON PERSON [facility] IN-PATIENT SERVICE [facility] Progress Note 10/17/2022 11:11 AM Name: Taurus Garcia Acct: [id number] Room: [address] [place] [address] IP Day: 2 Admit Date: 10/15/2022 6:59 PM PCP: Komal Nguyen MD Code Status: Full Code Subjective: C/C: Weakness, fatigue Interval History Status: improved. Had several episodes of diarrhea overnight with some improvement after probiotics/imodium. No fevers overnight. Urology removing catheter today Brief History: Taurus Garcia is a 77 y.o. male with history of type 2 diabetes, hypertension, JAMISON, myasthenia gravis, prior PE on a/c, with history of bladder cancer status post TURBTx2, BCG therapy who presented to [facility] 10/13 with penile bleeding/suspected Harrell trauma with BCG installation status post Harrell placement, and discharged home. Patient returned to [facility] today with fevers with suspected sepsis with Harrell associated UTI and recommended for transfer to [facility] for urologic evaluation Status post second BCG installation on 10/13 (previously initiated approximately 2 weeks ago with weekly installations). Patient noted bleeding with hematuria after instillation initially thought to be related to Harrell trauma. Status post ED evaluation with Harrell placement. preliminary work-up unremarkable without obvious evidence of infection, UA recheck unremarkable, chest x-ray unremarkable. Review of Systems: Constitutional: negative for chills, fevers, sweats Respiratory: negative for cough, dyspnea on exertion, shortness of breath, wheezing Cardiovascular: negative for chest pain, chest pressure/discomfort, lower extremity edema, palpitations Gastrointestinal: negative for abdominal pain, constipation, nausea, vomiting. +diarrhea Neurological: negative for dizziness, headache Medications: Allergies: No Known Allergies Current Meds: Scheduled Meds: lactobacillus 1 capsule Oral BID WC apixaban 5 mg Oral BID amLODIPine 5 mg Oral Daily carvedilol 12.5 mg Oral Daily furosemide 20 mg Oral Daily gabapentin 300 mg Oral Daily pyridostigmine 60 mg Oral 4x Daily cefepime 2,000 mg IntraVENous Q12H sodium chloride flush 5-40 mL IntraVENous 2 times per day Continuous Infusions: sodium chloride sodium chloride 100 mL/hr at 10/15/22 2135 PRN Meds: loperamide, sodium chloride flush, sodium chloride, potassium chloride OR potassium alternative oral replacement OR potassium chloride, magnesium sulfate, ondansetron OR ondansetron, polyethylene glycol, acetaminophen OR acetaminophen Data: Past Medical History: has a past medical history of Pulmonary embolism (HCC). Social History: reports that he has never smoked. He has never used smokeless tobacco. Family History: No family history on file. Vitals: BP (!) 170/76 Pulse 65 Temp 97.9 F (36.6 C) (Oral) Resp 16 Ht 5' 8 (1.727 m) Wt (!) 318 lb 7 oz (144.4 kg) SpO2 93% BMI 48.42 kg/m Temp (24hrs), Av.7 F (37.1 C), Min:97.9 F (36.6 C), Max:99.8 F (37.7 C) No results for input(s): POCGLU in the last 72 hours. I/O (24Hr): Intake/Output Summary (Last 24 hours) at 10/17/2022 1111 Last data filed at 10/17/2022 0528 Gross per 24 hour Intake -- Output 1300 ml Net -1300 ml Labs: Hematology: Recent Labs 10/16/22 0553 10/16/22 0915 10/17/22 0819 WBC -- 6.3 6.6 RBC -- 4.54 4.73 HGB -- 10.2* 10.5* HCT -- 33.5* 36.9* MCV -- 73.8* 78.0* MCH -- 22.5* 22.2* MCHC -- 30.4 28.5 RDW -- 22.2* 22.3* PLT -- See Reflexed IPF Result 185 MPV -- -- 10.3 CRP 86.3* -- -- INR 1.2 -- -- Chemistry: Recent Labs 10/16/22 0553 10/17/22 0819 NA 138 139 K 3.6* 3.6* CL 104 102 CO2 23 22 GLUCOSE 95 98 BUN 16 19 CREATININE 1.13 1.09 ANIONGAP 11 15 LABGLOM >60 >60 CALCIUM 8.1* 8.8 No results for input(s): PROT, LABALBU, LABA1C, E1CXCWE, A1YVUMN, FT4, TSH, AST, ALT, LDH, GGT, ALKPHOS, LABGGT, BILITOT, BILIDIR, AMMONIA, AMYLASE, LIPASE, LACTATE, CHOL, HDL, LDLCHOLESTEROL, CHOLHDLRATIO, TRIG, VLDL, PCW19RI, PHENYTOIN, PHENYF, URICACID, POCGLU in the last 72 hours. ABG:No results found for: POCPH, PHART, PH, POCPCO2, ZNL9MOI, PCO2, POCPO2, PO2ART, PO2, POCHCO3, NNH7CLV, HCO3, NBEA, PBEA, BEART, BE, THGBART, THB, ZWI7DBW, UIGI6AGK, J4LDCLEO, O2SAT, FIO2 No results found for: SPECIAL No results found for: CULTURE Radiology: No results found. Physical Examination: General appearance: alert, cooperative and no distress Mental Status: oriented to person, place and time and normal affect Lungs: clear to auscultation bilaterally, normal effort Heart: regular rate and rhythm Abdomen: soft, nontender, nondistended, normal bowel sounds Extremities: no edema, redness, tenderness in the calves Skin: no gross lesions, rashes, induration Assessment: Hospital Problems Last Modified POA * (Principal) Fever, unspecified 10/15/2022 Yes Bladder cancer ([facility]) 10/16/2022 Yes Gross hematuria 10/16/2022 Yes Malaise and fatigue 10/16/2022 Yes Acute weakness 10/16/2022 Yes Myasthenia gravis ([facility]) 10/16/2022 Yes JAMISON (obstructive sleep apnea) 10/16/2022 Yes Current chronic use of systemic steroids 10/16/2022 Yes Type 2 diabetes mellitus with diabetic neuropathy, without long-term current use of insulin ([facility]) 10/16/2022 Yes Morbid obesity ([facility]) 10/16/2022 Yes Hyponatremia 10/16/2022 Yes Hypokalemia 10/16/2022 Yes Acute retention of urine 10/16/2022 Yes Hypomagnesemia 10/16/2022 Yes Hypocalcemia 10/16/2022 Yes CRP elevated 10/17/2022 Yes Elevated procalcitonin 10/17/2022 Yes Bandemia 10/17/2022 Yes SIRS (systemic inflammatory response syndrome) ([facility]) 10/17/2022 Yes Plan: Acute fever, possible sepsis Negative urine culture so far Empiric Cefepime Elevated CRP/Pro calcitonin Hematuria and fever could be superinfection versus BCG-itis ID following Diarrhea - likely from antibiotics Probiotics Imodium with some improvement Bladder cancer s/p TURBTx2, recently started on BCG installation Harrell inserted due to retention, possible removal today Urology following Myasthenia Gravis On chronic steroids 10/17/2022 11:11 AM Attending Supervising Physician s Attestation Statement I, Honorio Vuong MD, have seen and examined Taurus Garcia and personally performed and participated in the garcia or critical portions of the evaluation and management including personally performingthe exam and medical decision making. I verify the accuracy of the documentation by the medical/PA student with the following additions/changes. Additional Comments: started on empiric cefepime yesterday per ID. Having some diarrhea this AM. Possible harrell removal per urology. DC planning once cleared by all services * Lian Philip MD - 10/17/2022 7:43 AM EST Images from the original note were not included. 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, post to BCG, last 10/13/22 Hematuria following BCG installation Myasthenia gravis on steroids, and was suppressed Leukocytosis - SIRS Other: DM2, JAMISON, Discussion / summary of stay / plan of care Hematuria and fever could be superinfection versus BCG-itis Avoid cipro aminosides zithromax due to myasthnia Recommendations Await urine culture Patient has low-grade fever Stop cefepime due to diarrhea - U cx also neg Add probiotics for diarrhea and ok for DC Fever could have been a reaction to the BCG instillation Infection Control Recommendations [place] Precautions Contact Isolation Antimicrobial Stewardship Recommendations Simplification of therapy Targeted therapy History of Present Illness: Initial history: Taurus Garcia is a 77 y.o.-year-old male transferred from [facility] because of sepsis. He has a history of BCG due to high-grade known muscle invasive bladder cancer, post TURBT x2 his last BCG was 10/13/2022 They noticed some bleeding from the urethra after the BCG installation and hence came to [facility], they thought it might be from the prior Harrell, so another Harrell was placed and was discharged home. That he came back with fatigue malaise fever chills. There was a concern for urosepsis and urine analysis was abnormal. He was sent to [facility] 10/17/2022 Patient Vitals for the past 8 hrs: Weight 10/17/22 0600 (!) 318 lb 7 oz (144.4 kg) 10/17 Afebrile, vitals stable UA many WBC, nitrate and small leukocyte esterase Complaining of diarrhea overnight, liquid BM every 45 min, no foul smell Summary of relevant labs: Labs: Platelet, [id number] WBC6.3 CRP86.3 High Procalcitonin0.20 High Micro: U cx 10/16 UA many WBC, nitrate and small leukocyte esterase Imaging: I have personally reviewed the past medical history, past surgical history, medications, social history, and family history, and I haveupdated the database accordingly. Allergies: Patient has no known allergies. Review of Systems: Review of Systems Constitutional: Negative for activity change. HENT: Negative for congestion. Eyes: Negative for discharge. Respiratory: Negative for apnea and shortness of breath. Cardiovascular: Negative for chest pain. Gastrointestinal: Positive for diarrhea. Negative for nausea and vomiting. Endocrine: Negative for cold intolerance. Genitourinary: Negative for dysuria. Musculoskeletal: Negative for arthralgias. Skin: Negative for color change. Allergic/Immunologic: Positive for immunocompromised state. Neurological: Negative for dizziness and light-headedness. Hematological: Negative for adenopathy. Psychiatric/Behavioral: Negative for agitation. Physical Examination : Physical Exam Constitutional: Appearance: Normal appearance. He is obese. He is not ill-appearing. HENT: Head: Normocephalic and atraumatic. Nose: Nose normal. Eyes: General: No scleral icterus. Conjunctiva/sclera: Conjunctivae normal. Cardiovascular: Rate and Rhythm: Normal rate and regular rhythm. Heart sounds: No murmur heard. No gallop. Pulmonary: Effort: Pulmonary effort is normal. No respiratory distress. Breath sounds: Normal breath sounds. No wheezing. Abdominal: General: There is no distension. Palpations: Abdomen is soft. Tenderness: There is no abdominal tenderness. Genitourinary: Comments: Harrell in place Musculoskeletal: General: No swelling or deformity. Cervical back: Neck supple. No rigidity. Skin: General: Skin is dry. Coloration: Skin is not jaundiced. Neurological: General: No focal deficit present. Mental Status: He is alert and oriented to person, place, and time. Psychiatric: Mood and Affect: Mood normal. Thought Content: Thought content normal. Past Medical History: Past Medical History: Diagnosis Date Pulmonary embolism (HCC) 2019 Past Surgical History: No past surgical history on file. Medications: lactobacillus 1 capsule Oral BID WC apixaban 5 mg Oral BID amLODIPine 5 mg Oral Daily carvedilol 12.5 mg Oral Daily furosemide 20 mg Oral Daily gabapentin 300 mg Oral Daily pyridostigmine 60 mg Oral 4x Daily cefepime 2,000 mg IntraVENous Q12H sodium chloride flush 5-40 mL IntraVENous 2 times per day Social History: Social History Socioeconomic History Marital status: Unknown Spouse name: Not on file Number of children: Not on file Years of education: Not on file Highest education level: Not on file Occupational History Not on file Tobacco Use Smoking status: Never Smokeless tobacco: Never Substance and Sexual Activity Alcohol use: Not on file Drug use: Not on file Sexual activity: Not on file Other Topics Concern Not on file Social History Narrative Not on file Social Determinants of Health Financial Resource Strain: Not on file Food Insecurity: Not on file Transportation Needs: Not on file Physical Activity: Not on file Stress: Not on file Social Connections: Not on file Intimate Partner Violence: Not on file Housing Stability: Not on file Family History: No family history on file. Medical Decision Making: I have independently reviewed/ordered the following labs: CBC with Differential: Recent Labs 10/16/22 0915 WBC 6.3 HGB 10.2* HCT 33.5* PLT See Reflexed IPF Result LYMPHOPCT 13* MONOPCT 14* BMP: Recent Labs 10/16/22 0553 NA 138 K 3.6* CL 104 CO2 23 BUN 16 CREATININE 1.13 Hepatic Function Panel: No results for input(s): PROT, LABALBU, BILIDIR, IBILI, BILITOT, ALKPHOS, ALT, AST in the last 72 hours. No results for input(s): RPR in the last 72 hours. No results for input(s): HIV in the last 72 hours. No results for input(s): BC in the last 72 hours. Lab Results Component Value Date/Time CREATININE 1.13 10/16/2022 05:53 AM GLUCOSE 95 10/16/2022 05:53 AM Detailed results: Thank you for allowing us to participate in the care of this patient.Please call with questions. This note is created with the assistance of a speech recognition program. While intending to generate adocument that actually reflects the content of the visit, the document can still have some errors including those of syntax and sound a like substitutions which may escape proof reading. It such instances, actual meaningcan be extrapolated by contextual diversion. Keiko Jc Office: Perfect serve / office [phone] I have discussed the care of the patient, including pertinent history and exam findings, with the resident. I have seen and examined the patient and the garcia elements of all parts of the encounter have been performed by me. I agree with the assessment, plan and orders as documented by the resident. Lian Philip, Infectious Diseases * Jovan Morales MD - 10/17/2022 7:22 AM EST Urology Progress Note Subjective: Taurus Garcia is a 77 y.o. male. His/Her current Diet is: ADULT DIET; Regular. Since the previous note, the patient reports the following: No acute issues overnight. No fevers or chills. No nausea or vomiting. Complaining of diarrhea Vitals and Labs: Vitals: 10/16/22 1133 10/16/22 1634 10/16/22 1933 10/17/22 0600 BP: (!) 169/73 136/65 (!) 146/66 Pulse: 70 56 62 Resp: 16 16 Temp: 99.8 F (37.7 C) 98.6 F (37 C) 98.6 F (37 C) TempSrc: Oral Oral Oral SpO2: 95% 92% (!) 87% Weight: (!) 318 lb 7 oz (144.4 kg) Height: I/O last 3 completed shifts: In: - Out: 1675 [Urine:1675] Recent Labs 10/16/22 0915 WBC 6.3 HGB 10.2* HCT 33.5* MCV 73.8* PLT See Reflexed IPF Result Recent Labs 10/16/22 0553 NA 138 K 3.6* CL 104 CO2 23 BUN 16 CREATININE 1.13 Recent Labs 10/16/22 1320 COLORU Yellow PHUR 5.5 WBCUA 50 TO 100 RBCUA TOO NUMEROUS TO COUNT SPECGRAV 1.023 LEUKOCYTESUR SMALL* UROBILINOGEN Normal BILIRUBINUR NEGATIVE Physical Exam: NAD A/O x 3 RRR No accessory muscles of inspiration Abdomen soft, non-tender, non-distended. No CVA tenderness. Harrell in place. Clear yellow UOP. No calf pain. EPCs on. Machine turned on. Impression: 77-year-old male with suspected sepsis from urinary source S/p BCG installation for bladder cancer on 10/13/2022 UA positive for bacteria Immunosuppressed due to steroids for myasthenia gravis Patient Active Problem List Diagnosis Fever, unspecified Bladder cancer (HCC) Gross hematuria Malaise and fatigue Acute weakness Myasthenia gravis (HCC) JAMISON (obstructive sleep apnea) Current chronic use of systemic steroids Type 2 diabetes mellitus with diabetic neuropathy, without long-term current use of insulin (HCC) Morbid obesity (HCC) Hyponatremia Hypokalemia Acute retention of urine Hypomagnesemia Hypocalcemia CRP elevated Elevated procalcitonin Bandemia SIRS (systemic inflammatory response syndrome) (HCC) Plan: Follow-up culture results Appreciate infectious disease recommendations Maintain Harrell catheter for now, will void trial prior to discharge No active urologic intervention planned Please call urology for any further questions Jovan Morales MD 7:22 AM 10/17/2022 * Honorio Vuong MD - 10/16/2022 11:27 AM EST Images from the original note were not included. [facility] Office: [phone] Dharmesh Barbosa DO, Taurus Hoover DO, Jae Vela DO, Aaron Dobson DO, Tu Diallo MD, Marisabel Roldan MD, Tiara Chambers MD, Lena Guerra MD, Honorio Vuong MD, Addison Harvey MD, Caleb Espinoza DO, Enrico Myers MD, Shae Sanches DO, Eliel Rizzo MD, Maulik Regan MD, Danie Barbosa DO, Gracia Altamirano MD, Uziel Nesbitt MD, Real De La Cruz DO, Haven Uribe MD, Nicolle Barros MD, Risa Chawla MD, Diann Vang MD, Stanley Valdes DO, Viri Sesay MD, Israel Lara MD, Marcelle Decker CNP, Adore Fraga CNP, Jolly Cardona CNP, Komal Bauer CNP, Malaika Ortiz DNP, Cynthia Amado CNP, Dee Lazo CNP, Joana Ponce CNP, Brittney Castro WAGON PERSON, Teresita Robb WAGON PERSON, SUNDEEP CoronaC, Eliza Majano, VENTURA, Susanne Mock, WAGON PERSON, Jaja Stanton, WAGON PERSON [facility] IN-PATIENT SERVICE [facility] Progress Note 10/16/2022 11:27 AM Name: Taurus Garcia Acct: [id number] Room: 0322/0322-02 Day: 1 Admit Date: 10/15/2022 6:59 PM PCP: No primary care provider on file. Code Status: Full Code Subjective: C/C: weakness Interval History Status: not changed. No issues overnight Temp 100 overnight ID/urology evaluation in progress No other complaints Discussed with RN Brief History: Taurus Garcia is a 77 y.o. male with history of type 2 diabetes, hypertension, JAMISON, myasthenia gravis, prior PE on a/c, with history of bladder cancer status post TURBTx2, BCG therapy who presented to [facility] 10/13 with penile bleeding/suspected Harrell trauma with BCG installation status post Harrell placement, and discharged home. Patient returned to [facility] earlier today with fevers with suspected sepsis with Harrell associated UTI and recommended for transfer to [facility] for urologic evaluation Patient describes abrupt onset of weakness with fatigue and malaise with anorexia that began Mondayev10/14. Status post second BCG installation on 10/13 (previously initiated approximately 2 weeks ago with weekly installations). Patient noted bleeding with hematuria after instillation initially thought to be related to Harrell trauma. Status post ED evaluation with Harrell placement. Labs on 10/13 demonstrated possible UTI that was attributed to bacteriuria. Discussed with urology,ED physician and urology both agreed no further antibiotics required, status post Harrell with decompression. Patient did return to [facility] ED earlier today with persistent malaise and fatigue with fevers andchills. Prior to arrival patient with acute near syncope with legs buckling underneath him with acute weakness. Denies LOC. Denies palpitations irregular heartbeat or orthostasis . Denies cough or URI symptoms, cough shortness of breath. denies sick contacts. Denies nausea vomiting abdominal pain diarrhea flank pain. Denies bladder spasms. Hematuria resolving with occasional pink-tinged urine. Denies back pain or radicular symptoms. preliminary work-up unremarkable without obvious evidence of infection, UA recheck unremarkable, chest x-ray unremarkable. Review of Systems: Constitutional: positive for fever Respiratory: negative for cough, dyspnea on exertion, shortness of breath, wheezing Cardiovascular: negative for chest pain, chest pressure/discomfort, lower extremity edema, palpitations Gastrointestinal: negative for abdominal pain, constipation, diarrhea, nausea, vomiting Neurological: negative for dizziness, headache Medications: Allergies: No Known Allergies Current Meds: Scheduled Meds: enoxaparin 30 mg SubCUTAneous BID sodium chloride flush 5-40 mL IntraVENous 2 times per day Continuous Infusions: sodium chloride sodium chloride 100 mL/hr at 10/15/22 2135 PRN Meds: sodium chloride flush, sodium chloride, potassium chloride OR potassium alternative oral replacement OR potassium chloride, magnesium sulfate, ondansetron OR ondansetron, polyethylene glycol, acetaminophen OR acetaminophen Data: Past Medical History: has a past medical history of Pulmonary embolism (HCC). Social History: reports that he has never smoked. He has never used smokeless tobacco. Family History: No family history on file. Vitals: BP (!) 155/62 Pulse 68 Temp 99.5 F (37.5 C) (Oral) Resp 18 Ht 5' 8 (1.727 m) Wt (!) 319 lb 10.6 oz (145 kg) SpO2 96% BMI 48.60 kg/m Temp (24hrs), Av.3 F (37.4 C), Min:98.4 F (36.9 C), Max:100 F (37.8 C) No results for input(s): POCGLU in the last 72 hours. I/O (24Hr): Intake/Output Summary (Last 24 hours) at 10/16/2022 1127 Last data filed at 10/16/2022 0554 Gross per 24 hour Intake -- Output 375 ml Net -375 ml Labs: Hematology: Recent Labs 10/16/22 0553 10/16/22 0915 WBC -- 6.3 RBC -- 4.54 HGB -- 10.2* HCT -- 33.5* MCV -- 73.8* MCH -- 22.5* MCHC -- 30.4 RDW -- 22.2* PLT -- See Reflexed IPF Result INR 1.2 -- Chemistry: Recent Labs 10/16/22 0553 NA 138 K 3.6* CL 104 CO2 23 GLUCOSE 95 BUN 16 CREATININE 1.13 ANIONGAP 11 LABGLOM >60 CALCIUM 8.1* No results for input(s): PROT, LABALBU, LABA1C, R4KGTSF, D2IYCMV, FT4, TSH, AST, ALT, LDH, GGT, ALKPHOS, LABGGT, BILITOT, BILIDIR, AMMONIA, AMYLASE, LIPASE, LACTATE, CHOL, HDL, LDLCHOLESTEROL, CHOLHDLRATIO, TRIG, VLDL, ZIQ27IK, PHENYTOIN, PHENYF, URICACID, POCGLU in the last 72 hours. ABG:No results found for: POCPH, PHART, PH, POCPCO2, MPC5OZS, PCO2, POCPO2, PO2ART, PO2, POCHCO3, LRC1FDM, HCO3, NBEA, PBEA, BEART, BE, THGBART, THB, FVS0OLB, TECB7HEI, M1PTUJHA, O2SAT, FIO2 No results found for: SPECIAL No results found for: CULTURE Radiology: No results found. Physical Examination: General appearance: alert, cooperative and no distress Mental Status: oriented to person, place and time and normal affect Lungs: clear to auscultation bilaterally, normal effort Heart: regular rate and rhythm Abdomen: soft, nontender, nondistended, normal bowel sounds Extremities: no edema, redness, tenderness in the calves Skin: no gross lesions, rashes, induration Assessment: Hospital Problems Last Modified POA * (Principal) Fever, unspecified 10/15/2022 Yes Bladder cancer (HCC) 10/16/2022 Yes Gross hematuria 10/16/2022 Yes Malaise and fatigue 10/16/2022 Yes Acute weakness 10/16/2022 Yes Myasthenia gravis (HCC) 10/16/2022 Yes JAMISON (obstructive sleep apnea) 10/16/2022 Yes Current chronic use of systemic steroids 10/16/2022 Yes Type 2 diabetes mellitus with diabetic neuropathy, without long-term current use of insulin ([facility]) 10/16/2022 Yes Morbid obesity ([facility]) 10/16/2022 Yes Hyponatremia 10/16/2022 Yes Hypokalemia 10/16/2022 Yes Acute retention of urine 10/16/2022 Yes Hypomagnesemia 10/16/2022 Yes Hypocalcemia 10/16/2022 Yes Plan: - Vitals, labs, imaging, medications reviewed - Urology consulted - ID consult - Need for antibiotics per ID - Check inflammatory markers - Check UA Honorio Vuong MD 10/16/2022 11:27 AM * Nena Porras RPH - 10/16/2022 11:08 AM EST Pharmacy Note Enoxaparin Dose Adjustment Taurus Garcia is a 77 y.o. male. Pharmacist assessment of enoxaparin dose for VTE prophylaxis. Recent Labs 10/16/22 0553 BUN 16 Recent Labs 10/16/22 0553 CREATININE 1.13 Estimated Creatinine Clearance: 74 mL/min (based on SCr of 1.13 mg/dL). Height: Ht Readings from Last 1 Encounters: 10/15/22 5' 8 (1.727 m) Weight: Wt Readings from Last 1 Encounters: 10/16/22 (!) 319 lb 10.6 oz (145 kg) The following enoxaparin dose has been adjusted based upon renal function and/or patient weight perP&T Guidelines: Enoxaparin 40mg subq daily to 30mg subq BID Nena Porras PharmD [facility] 10/16/2022 11:08 AM [facility] Work Phone: [phone] Hospital course Narrative* Addison Harvey MD - 10/18/2022 12:10 PM EST Images from the original note were not included. [facility] Office: [phone] Dharmesh Barbosa DO, Taurus Hoover DO, Jae Vela DO, Aaron Dobson DO, Tu Diallo MD, Marisabel Roldan MD, Tiara Chambers MD, Lena Guerra MD, Honorio Vuong MD, Addison Harvey MD, Caleb Espinoza DO, Enrico yMers MD, Shae Sanches DO, Eliel Rizzo MD, Maulik Regan MD, Danie Barbosa DO, Gracia Altamirano MD, Uziel Nesbitt MD, Real De La Cruz DO, Haven Uribe MD, Nicolle Barros MD, Risa Chawla MD, Diann Vang MD, Stanley Valdes DO, Viri Sesay MD, Israel Lara MD, Marcelle Decker, WAGON PERSON, Adore Fraga, WAGON PERSON, Jolly Cardona, WAGON PERSON, Komal Bauer, WAGON PERSON, Malaika Ortiz DNP, Cynthia Amado, WAGON PERSON, Dee Lazo, WAGON PERSON, Joana Ponce, WAGON PERSON, Brittney Castro, WAGON PERSON, Teresita Robb, WAGON PERSON, Jarrod Ladd PA-C, Eliza Majano, COREMAKER HELPER, Susanne Mock, WAGON PERSON, Jaja Stanton, WAGON PERSON [facility] IN-PATIENT SERVICE [facility] Discharge Summary Patient ID: Taurus Garcia : 1945 ACCOUNT: [id number] Patient's PCP: Komal Nguyen MD Admit Date: 10/15/2022 Discharge Date: 10/18/2022 Length of Stay: 3 Code Status: Full Code Admitting Physician: Addison Harvey MD Discharge Physician: Addison Harvey MD Active Discharge Diagnoses: Hospital Problem Lists: Principal Problem (Resolved): Fever, unspecified Active Problems: Bladder cancer (HCC) Gross hematuria Malaise and fatigue Myasthenia gravis (HCC) JAMISON (obstructive sleep apnea) Current chronic use of systemic steroids Type 2 diabetes mellitus with diabetic neuropathy, without long-term current use of insulin (HCC) Morbid obesity (HCC) Hypokalemia Acute retention of urine Hypomagnesemia Hypocalcemia CRP elevated Resolved Problems: Acute weakness Hyponatremia Elevated procalcitonin Bandemia SIRS (systemic inflammatory response syndrome) (HCC) Discharged Condition: stable Hospital Stay: Hospital Course: This is 77 years old gentleman who presented to the hospital from outlying facility with hematuria s/p Harrell catheter trauma patient BCG instillation. Patient has a history of bladder cancer. He had BCG instillation on 10/13 and he noticed some hematuria. He went to the hospital. Over there a Harrell catheter was placed. He was transferred over here. Patient also had some fever and urinalysis was concerning for UTI. He was admitted for possible SIRS. Patient urine culture came back negative. He was evaluated by infectious disease and he was on cefepime. ID then stop antibiotics and recommended discharge without antibiotics. Patient's symptoms improved. He also developed diarrhea that improved.He does have a history of chronic diarrhea. His electrolytes were replaced. Urology gave him a voiding trial and recommended patient can be discharged home and they will follow him up as an outpatient. I advised the patient to monitor for hematuria and if it comes back or gets worsen to call his urologist and go to the hospital. Patient was advised to follow-up with his physicians outpatient. Review of systems: All systems were reviewed and found to be negative except for those mentioned elsewhere in the note Physical examination Respiratory exam: Bilateral air entry no rhonchi or wheezes Cardiovascular examination: S1, S2 Abdominal examination: Soft, nontender, bowel sounds present Extremities: nontender, no edema Significant therapeutic interventions: As above Significant Diagnostic Studies: Labs / Micro: CBC: Lab Results Component Value Date/Time WBC 6.2 10/18/2022 06:00 AM RBC 4.58 10/18/2022 06:00 AM HGB 10.2 10/18/2022 06:00 AM HCT 35.2 10/18/2022 06:00 AM MCV 76.9 10/18/2022 06:00 AM MCH 22.3 10/18/2022 06:00 AM MCHC 29.0 10/18/2022 06:00 AM RDW 21.9 10/18/2022 06:00 AM PLT 198 10/18/2022 06:00 AM BMP: Lab Results Component Value Date/Time GLUCOSE 91 10/18/2022 06:00 AM NA 140 10/18/2022 06:00 AM K 3.2 10/18/2022 06:00 AM CL 102 10/18/2022 06:00 AM CO2 23 10/18/2022 06:00 AM ANIONGAP 15 10/18/2022 06:00 AM BUN 17 10/18/2022 06:00 AM CREATININE 1.17 10/18/2022 06:00 AM CALCIUM 8.3 10/18/2022 06:00 AM LABGLOM >60 10/18/2022 06:00 AM Radiology: No results found. Consultations: Consults: Final Specialist Recommendations/Findings: IP CONSULT TO UROLOGY IP CONSULT TO INFECTIOUS DISEASES The patient was seen and examined on day of discharge and this discharge summary is in conjunction with any daily progress note from day of discharge. Discharge plan: Disposition: Home Physician Follow Up: Komal Nguyen MD [address] [facility] [address] Follow up in 1 week(s) your urologist Follow up in 1 week(s) Requiring Further Evaluation/Follow Up POST HOSPITALIZATION/Incidental Findings: Hemoglobin monitoring by PCP and urology Diet: cardiac diet Activity: As tolerated Discharge Medications: Medication List CONTINUE taking these medications apixaban 5 MG Tabs tablet Commonly known as: ELIQUIS baclofen 10 MG tablet Commonly known as: LIORESAL Fish Oil 1200 MG Caps furosemide 20 MG tablet Commonly known as: LASIX gabapentin 300 MG capsule Commonly known as: NEURONTIN hydrALAZINE 50 MG tablet Commonly known as: APRESOLINE lisinopril 20 MG tablet Commonly known as: PRINIVIL;ZESTRIL loratadine 10 MG dissolvable tablet Commonly known as: CLARITIN REDITABS MULTI-VITAMINS PO nebivolol 10 MG tablet Commonly known as: BYSTOLIC potassium chloride 10 MEQ extended release capsule Commonly known as: MICRO-K predniSONE 10 MG tablet Commonly known as: DELTASONE pyridostigmine 60 MG tablet Commonly known as: MESTINON simvastatin 40 MG tablet Commonly known as: ZOCOR triamterene-hydroCHLOROthiazide 37.5-25 MG per tablet Commonly known as: MAXZIDE-25 No discharge procedures on file. Time Spent on discharge is 26 mins in patient examination, evaluation, counseling as well as medication reconciliation, prescriptions for required medications, discharge plan and follow up. Electronically signed by Addison Harvey MD 10/18/2022 1:[address] Komal Nguyen MD for the opportunity to be involved in this patient's care. documented in this encounterBON [employer] Phone: [phone] History and physical note* Celso Peñaloza MD, PhD - 05/06/2022 1:01 PM EDT [facility] NEW PATIENT HISTORY AND PHYSICAL EXAM PATIENT INFO: Taurus Garcia 76 year old REFERRING PROVIDER: Self PCP: Komal Nguyen II, MD HISTORY HPI: Taurus Garcia is a 76 year old male with morbid obesity, BPH, urge incontinence, Covid-19, JAMISON- uses c-pap, Cardiomegaly, HTN, DM2, Myasthenia gravis, h/o PE- on Eliquis who presents today for evaluation bladder cancer. Bladder cancer history: TURBT with Mitomycin- C 03/03/2022- T1 HG no MP present for eval TURBT 01/13/22- Gr 3 T1, Cystoscopy (12/27/2021), Transurethral water vapor ablation of prostate- REZUM (02/16/2017). Abdominal surgeries: TURBT x2, Colonoscopy GUROS: Obstructive - weak stream: no, hesitancy: no, intermittency: yes, post-void dribbling: yes, incomplete emptying: no. Irritative - NTF x3 , DTF every 2 hours , gross hematuria yes, dysuria yes, urgency yes, history ofrecurrent UTI's no, nephrolithiasis no MEDICATIONS: Current Outpatient Medications Medication Sig Dispense Refill baclofen (LIORESAL) 10 mg tablet Take 10 mg by mouth. hydrALAZINE (APRESOLINE) 50 mg tablet Take 50 mg by mouth. phenazopyridine (PYRIDIUM, GERIDIUM) 100 mg tablet Take 100 mg by mouth twice daily as needed. ELIQUIS 5 mg tab(s) Take 5 mg by mouth twice daily. gabapentin (NEURONTIN) 300 mg capsule Take 300 mg by mouth twice daily. 5 traMADol (ULTRAM) 50 mg tablet Take 50 mg by mouth every 6 hours as needed. 2 amLODIPine (NORVASC) 5 mg tablet hydrALAZINE (APRESOLINE) 50 mg tablet predniSONE (DELTASONE) 10 mg tablet NAPROXEN ORAL Take by mouth. OMEGA-3 FATTY ACIDS-EPA ORAL Take by mouth. metoprolol tartrate, short acting, (LOPRESSOR) 25 mg tablet Take 25 mg by mouth twice daily. pyridostigmine (MESTINON) 60 mg tablet Take 100 mg by mouth four times daily. aspirin 325 mg tablet Take 325 mg by mouth once daily. lisinopril (ZESTRIL, PRINIVIL) 20 mg tablet Take by mouth once daily. loratadine (CLARITIN) 10 mg tablet Take 10 mg by mouth once daily. MULTIVIT-MINERALS/FERROUS FUM (MULTI VITAMIN ORAL) Take by mouth once daily. simvastatin (ZOCOR) 40 mg tablet Take by mouth once daily. triamterene-hydrochlorothiazide (MAXZIDE-25) 37.5-25 mg per tablet Take by mouth once daily. No current facility-administered medications for this visit. MEDICATION ALLERGIES: ALLERGIES No Known Allergies PAST MEDICAL HISTORY: PAST MEDICAL HISTORY Diagnosis Date Cataract right DVT (deep venous thrombosis) (HCC) ERM OD (epiretinal membrane, right eye) HTN (hypertension) Hypercoagulable state (HCC) Hyperlipidemia Hypokalemia Myasthenia gravis (HCC) Obesity Pulmonary embolism (HCC) RD (retinal detachment), right SOB (shortness of breath) PAST SURGICAL HISTORY: PAST SURGICAL HISTORY Procedure Laterality Date REMV CATARACT EXTRACAP,INSERT LENS Right REP RETINAL DETACHMENT OTH TECHN Right FAMILY HISTORY: FAMILY HISTORY Problem Relation Age of Onset No Ocular Disease Father No Ocular Disease Mother Prostate Cancer: No Bladder Cancer: No Kidney Cancer: No Testis Cancer: No SOCIAL HISTORY: Social History Tobacco Use Smoking status: Never Smokeless tobacco: Never Substance Use Topics Alcohol use: Yes Comment: rare Drug use: No 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 ENMT: Negative CARDIOVASCULAR:NO CHEST PAIN, PALPITATIONS, ANKLE EDEMA RESPIRATORY: No chronic cough, wheezing, dyspnea, hemoptysis. GENITOURINARY: SEE HPI MUSCULOSKELETAL:NO CHRONIC BACK PAIN, ARTHRITIS, CHRONIC NECK PAIN SKIN: NO VARICOSE VEINS, RASH, ABNORMAL ITCHING HEME/LYMPH/IMMUNE:Negative for prolonged bleeding, bruising easily or swollen nodes NEUROLOGICAL: NO HEADACHES, NUMBNESS, SEIZURES, STROKE All other systems reviewed and are negative PHYSICAL EXAM: Blood Pressure 132/55 (BP Site: Left Arm, BP Position: Sitting, BP Cuff Size: Large Adult) Pulse 67 Weight (Abnormal) 148.2 kg (326 lb 11.2 oz) Body Mass Index 61.76 kg/m GENERAL:obese, no deformities, healthy appearing NEURO: Awake, alert and oriented x 3, Cranial nerves II-XII grossly intact, Normal gait and No involuntary motions. PSYCH: No signs of depression, anxiety, or agitation RESP: NL effort, no retractions or purse-lip breathing. CV: No extremity swelling, varices, edema, pallor, erythema GASTROINTESTINAL: round, nondistended, no masses. HERNIAS: None SKIN: No rash, lesions HEME/LYMPH: No palpable lymphadenopathy MUSCULOSKELETAL: Extremities normal. No deformities, edema, clubbing or skin discoloration. LABS: pH, Urine Date Value Ref Range Status 05/06/2022 7.0 5.0 - 8.0 Final Specific Paron, Ur Date Value Ref Range Status 05/06/2022 1.008 1.005 - 1.030 Final Glucose, Urine Date Value Ref Range Status 05/06/2022 Negative Negative Final Bilirubin, Urine Date Value Ref Range Status 05/06/2022 Negative Negative Final Ketones, Urine Date Value Ref Range Status 05/06/2022 Negative Negative Final Hemoglobin/Blood,Ur Date Value Ref Range Status 05/06/2022 3+ (A) Negative Final Protein, Urine Date Value Ref Range Status 05/06/2022 1+ (A) Negative Final Urobilinogen Date Value Ref Range Status 05/06/2022 Negative Negative Final Nitrites Date Value Ref Range Status 05/06/2022 Negative Negative Final WBC, Urine Date Value Ref Range Status 05/06/2022 11-25 /HPF (A) 0-5 /HPF Final IMAGES: CT ABD/PEL 12/15/21: Bladder masses measuring 1.9 x1.4 cm in the right and 1.6 x 0.9 cm posterior superior margin Few left iliac chain lymph nodes borderline in size largest measuring 1.1 x 0.9 ASSESSMENT/PLAN: 76 year old male with morbid obesity, BPH, urge incontinence, Covid-19, JAMISON- uses c-pap, Cardiomegaly, HTN, DM2, Myasthenia gravis, h/o PE- on Eliquis, and 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 Celso Peñaloza MD, PhD [facility] Hospital Discharge instructions Patient Education 03/29/2022 11:56:36 Transurethral Resection of Bladder Tumor Transurethral Resection of Bladder Tumor Transurethral resection of a bladder tumor is the removal (resection) of a cancerous growth (tumor)on the inside wall of the bladder. The bladder is the organ that holds urine. The tumor is removed through the tube that carries urine out of the body (urethra). In a transurethral resection, a thin telescope with a light, a tiny camera, and an electric cuttingedge (resectoscope) is passed through the urethra. In men, the opening of the urethra is at the endof the penis. In women, it is just above the opening of the vagina. Tell a health care provider about: Any allergies you have. All medicines you are taking, including vitamins, herbs, eye drops, creams, and tsoe-wdb-txhchks medicines. Any problems you or family members have had with anesthetic medicines. Any blood disorders you have. Any surgeries you have had. Any medical conditions you have. Any recent urinary tract infections you have had. Whether you are or may be . What are the risks? Generally, this is a safe procedure. However, problems may occur, including: Infection. Bleeding. Allergic reactions to medicines. Damage to nearby structures or organs, such as: ?The urethra. ?The tubes that drain urine from the kidneys into the bladder (ureters). Pain and burning during urination. Difficulty urinating due to partial blockage of the urethra. Inability to urinate (urinary retention). What happens before the procedure? Staying hydrated Follow instructions from your health care provider about hydration, which may include: Up to 2 hours before the procedure you may continue to drink clear liquids, such as water, clear fruit juice, black coffee, and plain tea. Eating and drinking restrictions Follow instructions from your health care provider about eating and drinking, which may include: 8 hours before the procedure stop eating heavy meals or foods, such as meat, fried foods, or fatty foods. 6 hours before the procedure stop eating light meals or foods, such as toast or cereal. 6 hours before the procedure stop drinking milk or drinks that contain milk. 2 hours before the procedure stop drinking clear liquids. Medicines Ask your health care provider about: Changing or stopping your regular medicines. This is especially important if you are taking diabetes medicines or blood thinners. Taking medicines such as aspirin and ibuprofen. These medicines can thin your blood. Do not take these medicines unless your health care provider tells you to take them. Taking ywqo-cll-sqdjarz medicines, vitamins, herbs, and supplements. Tests You may have exams or tests, including: Physical exam. Blood tests. Urine tests. Electrocardiogram (ECG). This test measures the electrical activity of the heart. General instructions Plan to have someone take you home from the hospital or clinic. Ask your health care provider how your surgical site will be marked or identified. Ask your health care provider what steps will be taken to help prevent infection. These may include: ? Washing skin with a germ-killing soap. ? Taking antibiotic medicine. What happens during the procedure? An IV will be inserted into one of your veins. You will be given one or more of the following: ?A medicine to help you relax (sedative). ?A medicine to make you fall asleep (general anesthetic). ?A medicine that is injected into your spine to numb the area below and slightly above the injection site (spinal anesthetic). Your legs will be placed in foot rests (stirrups) so that your legs are apart and your knees are bent. The resectoscope will be passed through your urethra and into your bladder. The part of your bladder that is affected by the tumor will be resected using the cutting edge of the resectoscope. The resectoscope will be removed. A thin, flexible tube (catheter) will be passed through your urethra and into your bladder. The catheter will drain urine into a bag outside of your body. ?Fluid may be passed through the catheter to keep the catheter open. The procedure may vary among health care providers and hospitals. What happens after the procedure? Your blood pressure, heart rate, breathing rate, and blood oxygen level will be monitored until youleave the hospital or clinic. You may continue to receive fluids and medicines through an IV. You will have some pain. You will be given pain medicine to relieve pain. You will have a catheter to drain your urine. ?You will have blood in your urine. Your catheter may be kept in until your urine is clear. ?The amount of urine will be monitored. If necessary, your bladder may be rinsed out (irrigated) bypassing fluid through your catheter. You will be encouraged to walk around as soon as possible. You may have to wear compression stockings. These stockings help to prevent blood clots and reduce swelling in your legs. Do not drive for 24 hours if you were given a sedative during your procedure. Summary Transurethral resection of a bladder tumor is the removal (resection) of a cancerous growth (tumor)on the inside wall of the bladder. To do this procedure, your health care provider uses a thin telescope with a light, a tiny camera, and an electric cutting edge (resectoscope). Follow your health care provider's instructions. You may need to stop or change certain medicines, and you may be told to stop eating and drinking several hours before the procedure. Your blood pressure, heart rate, breathing rate, and blood oxygen level will be monitored until youleave the hospital or clinic. You may have to wear compression stockings. These stockings help to prevent blood clots and reduce swelling in your legs. This information is not intended to replace advice given to you by your health care provider. Make sure you discuss any questions you have with your health care provider. Document Released: 06/03/2010 Document Revised: 03/08/2019 Document Reviewed: 03/08/2019 [employer] Patient Education 2020 [employer]. Follow Up Care 03/03/2022 14:58:42 With:Autumn Molina MD, Yoko Hair [facility] Address: [facility] [address] [place] [address] [phone] When: Unknown Comments:schedule Cysto/TURBT and CT [facility] 07-14-2022 Hospital Discharge instructions Patient Education 03/03/2022 11:28:54 Post Op Patient Instructions - FT (CUSTOM) Follow Up Care 02/09/2022 11:58:15 With:Yoko Rizvi Address: [facility] [address] [place] [address]- Business (1) When:2 to 4 weeks Comments:Reviewed pathology report and plan exudative treatment.Call for any problems.Call for followup appointment [facility]07-05-2022 Note [id number]:[id number] 02-01-2022 Hospital Discharge instructions Patient Education 02/01/2022 11:43:34 Bladder Cancer Bladder Cancer Bladder cancer is an abnormal growth of tissue in the bladder. The bladder is the balloon-like sac in the pelvis. It collects and stores urine that comes from the kidneys through the ureters. The bladder wall is made of layers. If cancer spreads into these layers and through the wall of the bladder, it becomes more difficult to treat. What are the causes? The cause of this condition is not known. What increases the risk? The following factors may make you more likely to develop this condition: Smoking. Workplace risks (occupational exposures), such as rubber, leather, textile, dyes, chemicals, and paint. Being white. Your age. Most people with bladder cancer are over the age of 55. Being male. Having chronic bladder inflammation. Having a personal history of bladder cancer. Having a family history of bladder cancer (heredity). Having had chemotherapy or radiation therapy to the pelvis. Having been exposed to arsenic. What are the signs or symptoms? Initial symptoms of this condition include: Blood in the urine. Painful urination. Frequent bladder or urine infections. Increase in urgency and frequency of urination. Advanced symptoms of this condition include: Not being able to urinate. Low back pain on one side. Loss of appetite. Weight loss. Fatigue. Swelling in the feet. Bone pain. How is this diagnosed? This condition is diagnosed based on your medical history, a physical exam, urine tests, lab tests,imaging tests, and your symptoms. You may also have other tests or procedures done, such as: A narrow tube being inserted into your bladder through your urethra (cystoscopy) in order to view the lining of your bladder for tumors. A biopsy to sample the tumor to see if cancer is present. If cancer is present, it will then be staged to determine its severity and extent. Staging is an assessment of: The size of the tumor. Whether the cancer has spread. Where the cancer has spread. It is important to know how deeply into the bladder wall cancer has grown and whether cancer has spread to any other parts of your body. Staging may require blood tests or imaging tests, such as a CTscan, MRI, bone scan, or chest X-ray. How is this treated? Based on the stage of cancer, one treatment or a combination of treatments may be recommended. The most common forms of treatment are: Surgery to remove the cancer. Procedures that may be done include transurethral resection and cystectomy. Radiation therapy. This is high-energy X-rays or other particles. This is often used in combinationwith chemotherapy. Chemotherapy. During this treatment, medicines are used to kill cancer cells. Immunotherapy. This uses medicines to help your own immune system destroy cancer cells. Follow these instructions at home: Take eqst-pmo-bozfigu and prescription medicines only as told by your health care provider. Maintain a healthy diet. Some of your treatments might affect your appetite. Consider joining a support group. This may help you learn to cope with the stress of having bladdercancer. Tell your cancer care team if you develop side effects. They may be able to recommend ways to relieve them. Keep all follow-up visits as told by your health care provider. This is important. Where to find more information [employer]: www.cancer.org [employer] (NCI): www.cancer.gov Contact a health care provider if: You have symptoms of a urinary tract infection. These include: ?Fever. ?Chills. ?Weakness. ?Muscle aches. ?Abdominal pain. ?Frequent and intense urge to urinate. ?Burning feeling in the bladder or urethra during urination. Get help right away if: There is blood in your urine. You cannot urinate. You have severe pain or other symptoms that do not go away. Summary Bladder cancer is an abnormal growth of tissue in the bladder. This condition is diagnosed based on your medical history, a physical exam, urine tests, lab tests,imaging tests, and your symptoms. Based on the stage of cancer, surgery, chemotherapy, or a combination of treatments may be recommended. Consider joining a support group. This may help you learn to cope with the stress of having bladdercancer. This information is not intended to replace advice given to you by your health care provider. Make sure you discuss any questions you have with your health care provider. Document Released: 08/09/2004 Document Revised: 07/20/2018 Document Reviewed: 07/11/2017 [employer] Patient Education 2019 [employer]. [facility] 05-09-2022 Hospital Discharge instructions Patient Education 12/27/2021 12:39:14 Hematuria, Adult Hematuria, Adult Hematuria is blood in the urine. Blood may be visible in the urine, or it may be identified with a test. This condition can be caused by infections of the bladder, urethra, kidney, or prostate. Otherpossible causes include: Kidney stones. Cancer of the urinary tract. Too much calcium in the urine. Conditions that are passed from parent to child (inherited conditions). Exercise that requires a lot of energy. Infections can usually be treated with medicine, and a kidney stone usually will pass through your urine. If neither of these is the cause of your hematuria, more tests may be needed to identify the cause of your symptoms. It is very important to tell your health care provider about any blood in your urine, even if it ispainless or the blood stops without treatment. Blood in the urine, when it happens and then stops and then happens again, can be a symptom of a very serious condition, including cancer. There is no pain in the initial stages of many urinary cancers. Follow these instructions at home: Medicines Take gdax-hhz-nsdtfmf and prescription medicines only as told by your health care provider. If you were prescribed an antibiotic medicine, take it as told by your health care provider. Do notstop taking the antibiotic even if you start to feel better. Eating and drinking Drink enough fluid to keep your urine clear or pale yellow. It is recommended that you drink 3 4 quarts (2.8 3.8 L) a day. If you have been diagnosed with an infection, it is recommended that you drink cranberry juice in addition to large amounts of water. Avoid caffeine, tea, and carbonated beverages. These tend to irritate the bladder. Avoid alcohol because it may irritate the prostate (men). General instructions If you have been diagnosed with a kidney stone, follow your health care provider's instructions about straining your urine to catch the stone. Empty your bladder often. Avoid holding urine for long periods of time. If you are female: ?After a bowel movement, wipe from front to back and use each piece of toilet paper only once. ?Empty your bladder before and after sex. Pay attention to any changes in your symptoms. Tell your health care provider about any changes or any new symptoms. It is your responsibility to get your test results. Ask your health care provider, or the department performing the test, when your results will be ready. Keep all follow-up visits as told by your health care provider. This is important. Contact a health care provider if: You develop back pain. You have a fever. You have nausea or vomiting. Your symptoms do not improve after 3 days. Your symptoms get worse. Get help right away if: You develop severe vomiting and are unable take medicine without vomiting. You develop severe pain in your back or abdomen even though you are taking medicine. You pass a large amount of blood in your urine. You pass blood clots in your urine. You feel very weak or like you might faint. You faint. Summary Hematuria is blood in the urine. It has many possible causes. It is very important that you tell your health care provider about any blood in your urine, even ifit is painless or the blood stops without treatment. Take rwnx-mja-gnqulbq and prescription medicines only as told by your health care provider. Drink enough fluid to keep your urine clear or pale yellow. This information is not intended to replace advice given to you by your health care provider. Make sure you discuss any questions you have with your health care provider. Document Released: 08/07/2006 Document Revised: 01/01/2020 Document Reviewed: 09/09/2017 [employer] Patient Education 2020 [employer]. Follow Up Care 12/07/2021 14:21:16 With:Autumn Molina MD, Yoko Hair, URO Address: [facility] [address] , [place] [address]- When: Unknown Comments:schedule follow up after TURBT [facility] 04-19-2022 Hospital Discharge instructions Patient Education 12/07/2021 09:59:28 Hematuria, Adult Hematuria, Adult Hematuria is blood in the urine. Blood may be visible in the urine, or it may be identified with a test. This condition can be caused by infections of the bladder, urethra, kidney, or prostate. Otherpossible causes include: Kidney stones. Cancer of the urinary tract. Too much calcium in the urine. Conditions that are passed from parent to child (inherited conditions). Exercise that requires a lot of energy. Infections can usually be treated with medicine, and a kidney stone usually will pass through your urine. If neither of these is the cause of your hematuria, more tests may be needed to identify the cause of your symptoms. It is very important to tell your health care provider about any blood in your urine, even if it ispainless or the blood stops without treatment. Blood in the urine, when it happens and then stops and then happens again, can be a symptom of a very serious condition, including cancer. There is no pain in the initial stages of many urinary cancers. Follow these instructions at home: Medicines Take xjiv-tuv-qxqiags and prescription medicines only as told by your health care provider. If you were prescribed an antibiotic medicine, take it as told by your health care provider. Do notstop taking the antibiotic even if you start to feel better. Eating and drinking Drink enough fluid to keep your urine clear or pale yellow. It is recommended that you drink 3 4 quarts (2.8 3.8 L) a day. If you have been diagnosed with an infection, it is recommended that you drink cranberry juice in addition to large amounts of water. Avoid caffeine, tea, and carbonated beverages. These tend to irritate the bladder. Avoid alcohol because it may irritate the prostate (men). General instructions If you have been diagnosed with a kidney stone, follow your health care provider's instructions about straining your urine to catch the stone. Empty your bladder often. Avoid holding urine for long periods of time. If you are female: ?After a bowel movement, wipe from front to back and use each piece of toilet paper only once. ?Empty your bladder before and after sex. Pay attention to any changes in your symptoms. Tell your health care provider about any changes or any new symptoms. It is your responsibility to get your test results. Ask your health care provider, or the department performing the test, when your results will be ready. Keep all follow-up visits as told by your health care provider. This is important. Contact a health care provider if: You develop back pain. You have a fever. You have nausea or vomiting. Your symptoms do not improve after 3 days. Your symptoms get worse. Get help right away if: You develop severe vomiting and are unable take medicine without vomiting. You develop severe pain in your back or abdomen even though you are taking medicine. You pass a large amount of blood in your urine. You pass blood clots in your urine. You feel very weak or like you might faint. You faint. Summary Hematuria is blood in the urine. It has many possible causes. It is very important that you tell your health care provider about any blood in your urine, even ifit is painless or the blood stops without treatment. Take yoxn-azx-orolqrd and prescription medicines only as told by your health care provider. Drink enough fluid to keep your urine clear or pale yellow. This information is not intended to replace advice given to you by your health care provider. Make sure you discuss any questions you have with your health care provider. Document Released: 08/07/2006 Document Revised: 01/01/2020 Document Reviewed: 09/09/2017 [employer] Patient Education 2020 [employer]. Follow Up Care 11/05/2021 14:25:01 With:Autumn Molina MD, Yoko Hair URO Address: [facility] [address] , [place] [address]- [phone] When: Unknown [facility] discharge summary Author Chau Lara [facility] May 21, 2023 12:26pm Note Date/Time May 21, 2023 12 :23pm [facility] [address] [place] [id number] Discharge Summary Signed Patient: Taurus Garcia MR#: [id number] : 1945 Acct:[id number] Age/Sex: 77 / M Adm Date: 3 Loc: Room: [address] [place] [address]: Chau Lara MD Copies to: MD Chau Gonsalves II, MD~ Providers Date of Discharge: 05/21/23 Discharging Provider: Chau Lara Primary Care Provider: Komal Nguyen Consults: 05/11/23 01:00 Consult to Neurology Routine Consult to Pulmonology Routine 05/15/23 22:54 Consult to Speech Therapy Routine 05/16/23 11:50 Consult to Physiatry Routine Consult to Physical Therapy Routine OT [Consult to Occupational Therapy] Routine 05/18/23 08:36 Consult to Cardiology Routine Discharge Diagnosis (1) Acute exacerbation of myasthenia gravis: (2) Acute respiratory failure with hypoxia: (3) CKD (chronic kidney disease) stage 3, GFR 30-59 ml/min: Final Diagnosis Final Discharge Diagnosis: as above Summary Hospital Course Hospital course: 77M with PMH of HTN, HLD, Myasthenia Gravis (Dx 2016), CKD, PE(On Eliquis) who was admitted to [facility] 05/09 for generalized weakness. He was intubated there then transferred for the evaluation and treatment of suspected acute myasthenia gravis exacerbation. Acute Respiratory Failure due to Myasthenia gravis exacerbation s/p extubation Clinically stable On nasal cannula 1 L of oxygen Saturation is 95% On sinus rhythm Albuterol Neb PRN Incentive spirometry PT/OT Plan to dc to acute rehab Myasthenia gravis exacerbation Completed IVIG Continue with prednisone orally Continue with pyridostigmine Pulmonary embolism: On Eliquis p.o. twice daily Drug induced Hypotension Resolved Drug induced Sinus Bradycardia Resolved Afib with RVR in sinus rhythm Switched to Amiodarone PO Eliquis pO daily HTN: On lisinopril The patient is clinically stable for discharge to inpatient rehab with case reconciliation updated as above. Time Spent with Patient Time spent providing/coordinating discharge services (# min): 35 Exam Physical Exam Vital Signs: Temp Pulse Resp BP Pulse Ox O2 Del Method O2 Flow Rate 98.7 F 63 20 164/76 H 95 Nasal Cannula 1 05/21/23 08:00 05/21/23 08:00 05/21/23 08:00 05/21/23 08:00 05/21/23 08:00 05/21/23 08:03 05/21/23 08:03 FiO2 4 05/15/23 18:00 Narrative: The patient is alert and awake, no signs of distress, frail looking but obese Heart sounds were regular S1 and S2 Lungs some coarse breathing sounds noted but saturating well on 1 L nasal cannula without signs of distress Abdomen soft and nontender Extremities trace bilateral pedal edema without calf tenderness Discharge Plan Discharge Plan Patient Disposition: Rehab [facility] Additional Instructions: Inpatient Rehab to manage care: - Full code - PT/OT eval and treat - Routine vital signs - Oxygen at 1L per nasal cannula, titrate as needed to keep pox > 90% - Mepilex border foam to Coccyx for protection. Change every 3 days and as needed - Prescriptions: New amiodarone 200 mg Tablet 200 mg PO QAM 30 Days Qty: 30 12RF Continued furosemide 20 mg tablet 20 mg PO DAILY potassium chloride 10 mEq tablet,ER particles/crystals 10 meq PO DAILY nebivolol 10 mg tablet 10 mg PO DAILY apixaban 5 mg (74 tabs) tablets,dose pack 5 mg PO Q12H pyridostigmine bromide 60 mg tablet 1 tab PO QID Patient Comments: prednisone 10 mg tablet 10 mg PO DAILY Patient Comments: lisinopril 20 mg tablet 20 mg PO DAILY Patient Comments: simvastatin 40 mg tablet 40 mg PO HS Patient Comments: triamterene-hydrochlorothiazid [Maxzide-25mg] 37.5-25 mg tablet 1 tab PO DAILY Patient Comments: hydralazine 50 mg tablet 50 mg PO BID Patient Comments: loratadine [Allergy Relief (loratadine)] 10 mg Tablet 10 mg PO DAILY Adults 50 Plus 0.4-300-250 mg-mcg-mcg Tablet 1 tab PO DAILY omega-3 fatty acids-fish oil [Fish Oil] 360-1,200 mg Capsule 1 cap PO BID Discontinued baclofen 10 mg tablet 1 tab PO Q8H Follow Up: Melonie Green APRN [Nurse Practitioner] - 06/07/23 10:00 am Documented By: Chau Lara MD 05/21/23 1222 Signed By: <Electronically signed by Chau Lara MD> 05/21/23 1226 [facility] Work Phone: Evaluation + Plan note Future Appointments Appointment Date:12/27/2021 01:00:00 PM Scheduled Provider:Yoko Rizvi Jr., MD Location:[facility] Appointment Type:URO Procedure 15 min Diagnostic Tests Pending * UroVysion Fish and Urine Cyto ([facility]) 12/07/21 * UroVysion Fish and Urine Cyto ([facility]) 12/07/21 [facility] evaluation + Plan note Future Appointments Appointment Date:02/01/2022 10:30:00 AM Scheduled Provider:Yoko Rizvi Jr., MD Location:[facility] Appointment Type:URO Office Visit [facility] evaluation + Plan note Future Appointments Appointment Date:02/01/2022 10:30:00 AM Scheduled Provider:Yoko Rizvi Jr., MD Location:[facility] Appointment Type:URO Office Visit Diagnostic Tests Pending * [facility] Appointment Date:03/03/2022 11:00:00 AM Scheduled Provider: Location:[facility] Appointment Type:Surgery FT Diagnostic Tests Pending * [facility]ments Appointment Date:03/29/2022 11:00:00 AM Scheduled Provider:Yoko Rizvi Jr., MD Location:[facility] Appointment Type:URO Office Visit [facility] note* Diagnosis Malignant neoplasm of overlapping sites of bladder (HCC)- Primary Malignant neoplasm of other specified sites of bladder documented in this encounter [facility] note* Diagnosis Screening for genitourinary condition Screening for other and unspecified genitourinary condition [facility] noteNo assessment information [facility] Work Phone: Evaluation note* Diagnosis Fever, unspecified- Primary Bladder cancer (HCC) Malignant neoplasm of bladder, part unspecified Gross hematuria Malaise and fatigue Other malaise and fatigue Acute weakness Myasthenia gravis (HCC) Myasthenia gravis without exacerbation JAMISON (obstructive sleep apnea) Obstructive sleep apnea (adult) (pediatric) Current chronic use of systemic steroids Type 2 diabetes mellitus with diabetic neuropathy, without long-term current use of insulin (HCC) Morbid obesity (HCC) Morbid obesity Hyponatremia Hyposmolality and/or hyponatremia Hypokalemia Hypopotassemia Acute retention of urine Other specified retention of urine Hypomagnesemia Disorders of magnesium metabolism Hypocalcemia CRP elevated Elevated C-reactive protein (CRP) Elevated procalcitonin Bandemia SIRS (systemic inflammatory response syndrome) (HCC) Systemic inflammatory response syndrome, unspecified [facility] Work Phone: evaluation note* Diagnosis Onset Date Resolution Status Acute exacerbation of myasthenia gravis acute Acute respiratory failure with hypoxia acute Atrial fibrillation acute CKD (chronic kidney disease) stage 3, GFR 30-59 ml/min acute Hyperlipidemia acute Hypertension acute Impaired mobility and activities of daily living acute Morbid obesity with BMI of 50.0-59.9, adult acute Myasthenia gravis acute Myasthenic crisis acute Obstructive sleep apnea acut e UTI (urinary tract infection) due to Enterococcus acute [facility] Work Phone: Evaluation note* Diagnosis Onset Date Resolution Status Acute exacerbation of myasthenia gravis acute Acute respiratory failure with hypoxia acute Atrial fibrillation acute CKD (chronic kidney disease) stage 3, GFR 30-59 ml/min acute Hyperlipidemia acute Hypertension acute Impaired mobility and activities of daily living acute Morbid obesity with BMI of 50.0-59.9, adult acute Myasthenia gravis acute Myasthenic crisis acute Obstructive sleep apnea acut e UTI (urinary tract infection) due to Enterococcus acute Atrial fibrillation acute Hyperlipidemia acute Hypertension acute Impaired mobility and activities of daily living acute Morbid obesity with BMI of 50.0-59.9, adult acute Myasthenia gravis acute Myasthenia gravis in crisis acute Oropharyngeal dysphagia acut e Pulmonary emboli [facility] Work Phone: Evaluation note* Diagnosis Paroxysmal atrial fibrillation (CMS/HCC) Atrial fibrillation Pulmonary embolism, unspecified chronicity, unspecified pulmonary embolism type, unspecified whether acute cor pulmonale present ([facility]) Myasthenia gravis ([facility]) Myasthenia gravis without exacerbation High risk medication use Essential hypertension Unspecified essential hypertension Mixed hyperlipidemia Morbid obesity with BMI of 45.0-49.9, adult ([facility]) documented in this encounter [facility] Work Phone: Evaluation note* Diagnosis Bilateral leg weakness- Primary Muscle weakness (generalized) Difficulty walking Difficulty in walking Right leg pain Pain in soft tissues of limb documented in this encounter [facility]* Diagnosis Type 2 diabetes mellitus with diabetic neuropathy, without long-term current use of insulin ([facility])- Primary Benign essential hypertension (CMS/HCC) Essential hypertension, benign Paroxysmal atrial fibrillation (CMS/HCC) Atrial fibrillation documented in this encounter [facility] HealthcareEvaluation note* Diagnosis Bilateral leg weakness- Primary Muscle weakness (generalized) Difficulty walking Difficulty in walking Right leg pain Pain in soft tissues of limb documented in this encounter [facility] HealthcareEvaluation note* Diagnosis Bilateral leg weakness- Primary Muscle weakness (generalized) Difficulty walking Difficulty in walking Right leg pain Pain in soft tissues of limb documented in this encounter [facility] HealthcareEvaluation note* Diagnosis Routine general medical examination at health care facility- Primary Routine general medical examination at a health care facility ACP (advance care planning) Other specified counseling Osteoarthritis of spine with radiculopathy, 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, without long-term current use of insulin ([facility]) Type 2 diabetes 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, without long-term current use of insulin ([facility]) Myasthenia gravis without (acute) exacerbation (G70.00) 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 ([facility]) Morbid (severe) obesity due to excess calories (E66.01) Body mass index [BMI] 45.0-49.9, adult (Z68.42) documented in this encounter [facility] HealthcareHistory of Present illness Narrative* The patient states he has been generally stable since the last visit. Comorbid Illnesses: hypertension and hyperlipidemia. * Symptoms: denies chest pain at rest, denies exertional chest pain, stable dyspnea, stable fatigue, stable exercise intolerance, denies palpitations, resolved edema, denies orthopnea, denies dizzinessand denies orthostatic dizziness. * Associated symptoms: no syncope. * His symptoms do not limit his activities. * Disease Monitoring: The patient has had a weight loss. * Medications: the patient is adherent with his medication regimen. He denies medication side effects. -[facility] DO Work Phone: History of Present illness Narrative* The patient states he has been generally stable since the last visit. Comorbid Illnesses: hypertension and hyperlipidemia. * Symptoms: denies chest pain at rest, denies exertional chest pain, stable dyspnea, stable fatigue, stable exercise intolerance, denies palpitations, resolved edema, denies orthopnea, denies dizzinessand denies orthostatic dizziness. * Associated symptoms: no syncope. * His symptoms do not limit his activities. * Disease Monitoring: The patient has had a weight loss. * Medications: the patient is adherent with his medication regimen. He denies medication side effects. [facility] 600 DO Work Phone: Hospital course Narrative No data available for this section [facility] Hospital Discharge instructions No data available for this section [facility] Hospital Discharge instructions Additional Instructions Inpatient Rehab to manage care: - Full code - PT/OT/ST eval and treat - Routine vital signs - Oxygen at 1L per nasal cannula, titrate as needed to keep pox > 90% - Mepilex border foam to Coccyx for protection. Change every 3 days and as needed - Give pills crushed in applesauce - 1:1 Supervised feed - Magic cup BID with meals - Pureed diet, thin liquids - CPAP per home orders - Notify MD if unable to urinate, harrell catheter removed on [facility] Work Phone: Progress note No data available for this section [facility] progress note Author Silvestre Grover [facility] June 10, 2023 9:35am Note Date/Time June 10, 2023 9 :35am [facility] [address] [place] [address] Physiatry(Rehab) Progress Note Signed Patient: Taurus Garcia MR#: [id number] : 1945 Acct:[id number] Age/Sex: 77 / M Adm Date: 3 Loc: Room: 9N7943-0 Type: ADM IN Attending Dr: Silvestre Grover MD Copies to: ~ Date of Service: 06/09/2023 Subjective Subjective Narrative: Mr. Garcia is a 77 year old male with past medical history of myasthenia gravis,hypertension, A-fib anticoagulated with Eliquis, PE, CKD, obstructive sleep apnea on BiPAP, who presents to acute inpatient rehab with functional impairments due to MG crisis. Patient presented to [facility] on 05/11/2023 with complaints of worseninggeneralized weakness over the course of several days. He was found to be mildlyhypoxic. Also complaining of urinary symptoms. Initially admitted to [facility] for observation however developed worsening respiratory status with increased secretions and inability to protect own airway and was subsequently intubated and transferred to [facility] for neurology services. Patient received a 5-day course of IVIG per neurology recommendations. Home steroid dose was also escalated; pyridostigmine temporarily placed on hold. Pulmonology was following for vent management. Patient did develop a fever during hospitalization. Blood cultures x2 and sputum culture were negative. Successfully extubated on 05/15/2023. Had a few episodes of atrial fibrillation with RVR requiring amiodarone infusion. Will demonstrated EF of 60 to 65%, mildLVH and trace tricuspid regurgitation. Developed transient bradycardia which have resolved. Cardiology was consulted to assist with A-fib/RVR management. Recommended continuing amiodarone for the next 6 weeks or until resolution of myasthenic crisis. On rehab admission patient is alert, oriented, answering questions appropriately. Voices no specific complaints. Generalized weakness seems to be improving although still has difficult time moving lower extremities. No other neurologic or cardiopulmonary complaints. Respiratory status is back at baseline. Per patient report, prior to most recent admission he was fully independent and ambulatory without assistive device. He lives with who will be able to assist with ADLs if needed. Interval History: Harrell out, voiding with low PVRs. Plan is for home tomorrow. No events overnight. Review of Systems Review of Systems All other systems reviewed & are negative unless noted below or in HPI Exam Physical Exam Vital Signs: Temp Pulse Resp BP Pulse Ox O2 Del Method O2 Flow Rate 97.2 F L 57 L 18 145/70 H 95 Room Air 2 06/10/23 05:00 06/10/23 05:00 06/10/23 05:00 06/10/23 05:00 06/10/23 05:00 06/10/23 05:00 05/25/23 00:00 Narrative: General: Awake, alert, oriented x3 HENT: Normal to inspection, normocephalic, atraumatic Eyes: PERRL, normal conjunctiva and sclera Neck: Normal ROM, normal visual inspection. Trachea midline. Cardio: Irregular heart rate then rhythm Respiratory: Clear to auscultation bilaterally. Normal respiratory effort. No respiratory distress. GI: Abdomen obese, soft, nontender, nondistended, active bowel sounds x4 quadrants Neuro: CN II-XII intact. Strength 5/5, equal bilaterally Extremities: No edema, erythema, cyanosis. Upper extremity strength 4+/5, lowerextremity strength 4/5 Psych: Mood and affect appropriate. Normal speech. Objective Labs 05/30/23 05:16 05/30/23 05:16 Medications and Allergies Allergies and Active Meds: Allergies No Known Allergies Allergy (Verified 12/27/17 16:51) Active Medications Generic Name Dose Route Start Last Admin Trade Name Freq PRN Reason Stop Dose Admin Acetaminophen 500 mg 05/21/23 14:25 06/09/23 20:47 Acetaminophen 500 Mg Tablet PO 05/20/24 14:24 500 mg Q4H PRN Administration Pain Al Hydrox/Mg Hydrox/Simethicone 30 ml 05/21/23 14:25 Mag Hydrox/Al Hydrox/Simeth 30 Ml Udc PO 05/20/24 14:24 Q4H PRN Indigestion Amiodarone HCl 200 mg 05/22/23 09:00 06/10/23 09:09 Amiodarone 200 Mg Tablet PO 05/21/24 08:59 200 mg QAM DORI Administration Apixaban 5 mg 05/21/23 17:30 06/10/23 05:26 Apixaban 5 Mg Tablet PO 05/20/24 17:29 5 mg Q12H DORI Administration Atorvastatin Calcium 20 mg 05/21/23 22:00 06/09/23 20:47 Atorvastatin 20 Mg Tablet PO 05/20/24 21:59 20 mg HS DORI Administration Bisacodyl 10 mg 05/21/23 14:25 Bisacodyl 10 Mg Supp.Rect DE 05/20/24 14:24 DAILY PRN Constipation Docusate Sodium 100 mg 05/21/23 14:25 Docusate 100 Mg Capsule PO 05/20/24 14:24 BID PRN Constipation Docusate Sodium 283 mg 05/21/23 14:25 Docusate Enema 283 Mg/5 Ml Enema DE 05/20/24 14:24 DAILY PRN Constipation Fish Oil 1,000 mg 05/21/23 21:00 06/10/23 09:09 [place]-3/Fish Oil 1,000 Mg Capsule PO 05/20/24 20:59 1,000 mg BID DORI Administration Furosemide 20 mg 05/22/23 09:00 06/10/23 09:10 Furosemide 20 Mg Tablet PO 05/21/24 08:59 20 mg DAILY DORI Administration Hydralazine HCl 50 mg 05/21/23 21:00 06/10/23 09:13 Hydralazine 50 Mg Tablet PO 05/20/24 20:59 Not Given BID DORI Lactulose 30 gm 05/21/23 14:25 Lactulose 20 Gm/30 Ml Udc PO 05/20/24 14:24 DAILY PRN Constipation Lisinopril 20 mg 05/22/23 09:00 06/10/23 09:09 Lisinopril 20 Mg Tablet PO 05/21/24 08:59 20 mg DAILY DORI Administration Loperamide HCl 2 mg 05/21/23 21:10 05/25/23 09:55 Loperamide Liquid 2 Mg/15 Ml Udc PO 05/20/24 21:09 2 mg Q2H PRN Administration Loose Stool Loratadine 10 mg 05/22/23 09:00 06/10/23 09:10 Loratadine 10 Mg Tablet PO 05/21/24 08:59 10 mg DAILY DORI Administration Nebivolol 10 mg 05/22/23 09:00 06/10/23 09:10 Nebivolol 5 Mg Tablet PO 05/21/24 08:59 10 mg DAILY DORI Administration Nystatin 1 applic 05/22/23 09:00 06/10/23 09:17 Nystatin 100,000 Unit/Gram Powder 15 Gm Bottle TOPICAL 05/21/24 08:59 1 applic TID DORI Administration Potassium Chloride 10 meq 05/22/23 09:00 06/10/23 09:09 Potassium Chloride Liquid 20 Meq/15 Ml Udc PO 05/21/24 08:59 10 meq DAILY DORI Administration Prednisone 10 mg 05/22/23 09:00 06/10/23 09:09 Prednisone 10 Mg Tablet PO 05/21/24 08:59 10 mg DAILY DORI Administration Psyllium Hydrophilic Mucilloid 1 packet 06/01/23 09:00 06/10/23 09:12 Psyllium Husk 3.4 Gm Packet PO 05/31/24 08:59 Not Given DAILY DORI Pyridostigmine [place] 60 mg 05/21/23 18:00 06/10/23 09:09 Pyridostigmine [place] 60 Mg Tablet PO 05/20/24 17:59 60 mg QID DORI Administration Saccharomyces Boulardii 250 mg 05/30/23 21:00 06/10/23 09:09 Saccharomyces [place] 250 Mg Capsule PO 05/29/24 20:59 250 mg BID DORI Administration Sennosides 2 tab 05/22/23 12:00 Sennosides 8.6 Mg Tablet PO 05/21/24 11:59 DAILY@12 PRN If no BM in 2 days Triamterene/Hydrochlorothiazide 1 tab 05/22/23 09:00 06/10/23 09:10 Triamterene/Hctz 37.5-25mg 1 Tab Tablet PO 05/21/24 08:59 1 tab DAILY DORI Administration Assessment/Plan Assessment/Plan (1) Myasthenia gravis in crisis: Code(s): G70.01 - Myasthenia gravis with (acute) exacerbation Status: Acute Plan 77-year-old male presenting to acute rehab with functional impairments secondaryto myasthenic crisis. [facility]. Had to be intubated for airway protection. Successfully extubated on 05/15 and has been tolerating well. * Voiding now with low PVRs. Does not need Har[place] at discharge. * Home tomorrow. * Back on most home medications. Patient education Pressure ulcer prophylaxis; encourage mobilization, frequent postural changes, pressure-relief techniques DVT prophylaxis: Continue Eliquis. Encourage deep breathing exercise incentive spirometry. Monitor bladder. Toileting schedule. Continue current bladder management, with scans as needed and CIC if needed. Start bowel care program every day to obtain continence, prevent ileus. Maintain fall precautions Gait and balance retraining Functional training and self-care and home management, including activities of daily living and instrumental activities of daily living Provision of the necessary gait aids and functional adaptive equipment to enhance the patient's a functional holiness Ensure adequate nutrition and hydration Sleep: No concerns. Pain: Continue current regimen Discharge planning: Hopefully home with his tomorrow. Plan: I completed a substantive portion of this encounter, the medical decision makingportion of this note in its entirety, including Allied health note review, nursing note review, behavioral health consultant note review, discussion with nursing and case management, and more than 50% of my time was spent on counseling and coordination of care, time spent 25 minutes Patient was personally seen by me, Dr. Grover, on the day of encounter, reviewed the history and the relevant portions of the chart, including current orders, allied health and behavioral health consultant notes, labs/imaging and performed garcia elements of exam and I formulated the plan of care and facilitated the medical decision making. Documented By: Silvestre Grover MD 06/10/2334 Signed By: <Electronically signed by Silvestre Grover MD> 06/10/23934 [facility] Work Phone: Reason for referral (narrative)* Consultation (Routine) - Authorized Specialty Diagnoses / Procedures Referred By Contac t Referred To Contact Cardiology Diagnoses Paroxysmal atrial fibrillation (CMS/HCC) Essential hypertension Mixed hyperlipidemia Procedures Follow Up In Cardiology Baltazar Hoover DO [address] [facility], [place] [address] [place] [id number] Baltazar Hoover DO [address] [facility], [place] [address] [place] [id number] Referral ID Status Reason Start Date Expiration Date V isits Requested Visits Authorized [id number] Authorized 09/20/2023 09/19/2024 1 1 * Cardiovascular (Routine) - Authorized Specialty Diagnoses / Procedures Referred By Contac t Referred To Contact Diagnoses Paroxysmal atrial fibrillation (CMS/HCC) Procedures ECG 12 Lead Baltazar Hoover DO [address] [facility], [address] [address] Referral ID Status Reason Start Date Expiration Date V isits Requested Visits Authorized [id number] Authorized 09/20/2023 09/19/2024 1 1 * Cardiovascular (Routine) - Pending Review Specialty Diagnoses / Procedures Referred By Contac t Referred To Contact Cardiology Diagnoses Paroxysmal atrial fibrillation (CMS/HCC) Procedures Holter Or Event Home Agent Baltazar Hoover DO [address] [facility], [place] [address] [place] [id number] Referral ID Status Reason Start Date Expiration Date V isits Requested Visits Authorized [id number] Pending Review 09/20/2023 09/19/2024 1 1 * Consultation (Routine) - Authorized Specialty Diagnoses / Procedures Referred By Contluis fernando t Referred To Contact Cardiology Diagnoses Paroxysmal atrial fibrillation ([facility]/HCC) Procedures Follow Up In Cardiology Baltazar Hoover DO [facility] [address] [address] Melonie Rizvi, AUTISM MOTOR SPECIALIST-WAGON PERSON [facility], [address] [place] [address] Referral ID Status Reason Start Date Expiration Date V isits Requested Visits Authorized [id number] Authorized 09/20/2023 09/19/2024 1 1 [facility] Work Phone: Summary Purpose Family History No Family History Records Found Relationship Condition Age at Onset Recorded Date/T jace Not Specified Hypertension Unknown Unknown Family Member Name Dates Details FHx: myocardial infarction: Father(V17.3, Z82.49) Status:Active Unknown Family Member Name Dates Details FHx: myocardial infarction: Father(V17.3, Z82.49) Status:Active Advance Directives No Advanced Directives Records Found Advance Directive Response Recorded Date/ Time Advance Directives No December 27, 2017 2:28pm Advance Directive Response Recorded Date/ Time Advance Directives No December 27, 2017 1:28pm Latest Code Status on File Code Status Date Activated Date Inactivated Comments Full Code 10/15/2022 7:20 PM Chief Complaint and Reason for Visit Chief Complaint cysto turbt no gemza r Chief Complaint cysto turbt no gemza r cysto with turt Chief Complaint C67.9 Chief Complaint C67.9 Exatrubation Reason for Visit Acute exacerbation o f myasthenia gravis Acute respiratory failure with hypoxia Atrial fibrillation CKD (chronic kidney disease) stage 3, GFR 30-59 ml/min Hyperlipidemia Hypertension Impaired mobility and activities of daily living Morbid obesity with BMI of 50.0-59.9, adult Myasthenia gravis Myasthenic crisis Obstructive sleep apnea UTI (urinary tract infection) due to Enterococcus Chief Complaint Exatrubation myasthenia gavis exacerbation Reason for Visit Acute exacerbation o f myasthenia gravis Acute respiratory failure with hypoxia Atrial fibrillation CKD (chronic kidney disease) stage 3, GFR 30-59 ml/min Hyperlipidemia Hypertension Impaired mobility and activities of daily living Morbid obesity with BMI of 50.0-59.9, adult Myasthenia gravis Myasthenic crisis Obstructive sleep apnea UTI (urinary tract infection) due to Enterococcus Atrial fibrillation Hyperlipidemia Hypertension Impaired mobility and activities of daily living Morbid obesity with BMI of 50.0-59.9, adult Myasthenia gravis Myasthenia gravis in crisis Oropharyngeal dysphagia Pulmonary emboli Chief Complaint * Annual f/u: 'doing good' * TAURUS GARCIA is being seen for an annual follow-up of PE, primary prevention. * Annual f/u: 'doing good' * TAURUS GARCIA is being seen for an annual follow-up of PE, primary prevention. * Patient presents to the office ambulatory with steady gait, is accompanied by his . * Last evaluated in clinic Dr. Hoover August 2021. * Patient reports in spring 2021 was diagnosed with bladder cancer. Reports urologic procedure last week with interruption in Eliquis. * He remains an extremely pleasant 76-year-old gentleman without voiced complaints from a cardiovascular standpoint. He does report his shortness of breath with exertion seems to be at baseline. His activity level is fairly sedentary and he seems to tired quickly . There is no evidence orthopnea or P ND. He denies any type of palpitations. No evidence of postural orthostatic hypotension. No evidence of right-sided heart failure. * He sees his PCP regularly and had lab work completed last week. * He is tolerating full dose Eliquis due to PE denying any type of bleeding diatheses. * Overall patient is pleased with current state of cardiovascular health. At this time there are no indications for additional cardiovascular testing or need for medication changes. Additional Source Comments (unrecognized sect ion and content) No Status Records FoundNo Status Records FoundNo Status Records FoundNo Status Records FoundNo Status Records FoundNo Status Records FoundNo Status Records FoundNo Status Records FoundNo Status Records FoundNo Status Records FoundNo Status Records FoundNo Status Records FoundNo Status Records Found INFORMATION SOURCE (unrecogn ized section and content) DATE CREATED AUTHOR 02/07/2018 [facility] DATE CREATED AUTHOR AUTHOR'S ORGANIZ ATION 09/01/2021 [employer] DATE CREATED AUTHOR AUTHOR'S ORGANIZ ATION 01/21/2022 [facility] DATE CREATED AUTHOR AUTHOR'S ORGANIZ ATION 02/12/2022 [facility] Specialist DATE CREATED AUTHOR AUTHOR'S ORGANIZ ATION 07/28/2022 [facility] DATE CREATED AUTHOR AUTHOR'S ORGANIZ ATION 10/19/2022 [facility] DATE CREATED AUTHOR AUTHOR'S ORGANIZ ATION 05/26/2023 [facility] DATE CREATED AUTHOR AUTHOR'S ORGANIZ ATION 09/24/[address] [facility] DATE CREATED AUTHOR AUTHOR'S ORGANIZ ATION 09/25/2023 [facility] DATE CREATED AUTHOR AUTHOR'S ORGANIZ ATION 10/18/2023 [facility] DATE CREATED AUTHOR AUTHOR'S ORGANIZ ATION 11/17/2023 [facility] DATE CREATED AUTHOR AUTHOR'S ORGANIZ ATION 12/20/2023 [facility] DATE CREATED AUTHOR AUTHOR'S ORGANIZ ATION 01/27/2024 [facility] dical Specialists EPIC Care Team (unrecognized sect ion and content) Team Status: Active Member Role Status Dates Komal Nguyen II MD Primary Care Provider Active Team Status: Inactive Member Role Status Dates Komal Nguyen II MD Primary Care Provider Active Ivan Barnhart MD Attending Provider Active Shop And Alteration Tailor Relationship Specialty Start Date End Date Komal Nguyen II [address] [facility] [address] [place] [address] PCP - General Internal Medicine 12/05/16 Shop And Alteration Tailor Relationship Specialty Start Date End Date Komal Nguyen II [address] [employer] [place] [address] PCP - General Internal Medicine 12/05/16 Shop And Alteration Tailor Relationship Specialty Start Date End Date Komal Nguyen MD [address] [place] [address] PCP - General Internal Medicine 10/14/22 Team Status: Inactive Member Role Status Vanesa Nguyen II Primary Care Provider Active Jarret Garza MD Admit Provider Active Pauline Canales Other Provider Active Tonia Rice , DO Other Provider Active Wilton Lockhart MD Other Provider Active Stanley Saunders , DO Other Provider Active Sabine Salomon , ANP-BC Other Provider Active Jamel Packer , DO Other Provider Active Nikole Mosqueda , AUTISM MOTOR SPECIALIST Other Provider Active Rubai Henning , FUR COMBER-C Other Provider Active Brittney Coffey , AUTISM MOTOR SPECIALIST-POLE PEELER-C Other Provider Active Silvestre Grover MD Other Provider Active Donita Armstrong , AUTISM MOTOR SPECIALIST ACNP-BC Other Provider Active Lexy Chappell MD Other Provider Active Stanley Burt MD Other Provider Active Cora Rawls MD Other Provider Active Colten Xavier , DO Other Provider Active Blank Gross MD Other Provider Active Eriberto Yang MD Other Provider Active Jamel Noe MD Other Provider Active Dejaun Tuttle , DO Other Provider Active Chau Lara MD Attending Provider Active Team Status: Inactive Member Role Status Vanesa Nguyen , II Primary Care Provider Active Silvestre Grover MD Admit Provider, Attending Provider A ctive Libby Potter , RN Other Provider Active Melva Mendoza , RN Other Provider Active Cassi Lo , RN Other Provider Active Rocio Renner , RN Other Provider Active Alessia Justin , RN Other Provider Active Chayito Leone , HEATHER Other Provider Active Kevin Leo MD Other Provider Active Blank Leon , AUTISM MOTOR SPECIALIST Other Provider Active Meri Blanco , DO Other Provider Active Ubaldo Calvo MD Other Provider Active Mateo Horne , DO Other Provider Active Tyson Cheema MD Other Provider Active Marsha Fritz MD Other Provider Active Meera Javier , ANP-BC Other Provider Active Eliezer Newell MD Other Provider Active Dustin Stapleton MD Other Provider Active Ute Colvin MD Other Provider Active Chau Lara MD Other Provider Active Danie Jaramillo , DO Other Provider Active Chetan Gray MD Other Provider Active Cuong Dos Santos MD Other Provider Active Candida J [place] , FUR COMBER-C Other Provider Active Kushal Vizcarra MD Other Provider Active Torsten Burdick MD Other Provider Active Dudley Leon MD Other Provider Active Markus Johnson MD Other Provider Active Sofia Martinez , DO Other Provider Active Zia Duncan , DO Other Provider Active Rodolfo Temple , DO Other Provider Active Susanne Sharma , AUTISM MOTOR SPECIALIST Other Provider Active Dru Reveles , DO Other Provider Active Jarret Garza MD Other Provider Active Yuki Rizvi , AUTISM MOTOR SPECIALIST Other Provider Active Queenie Shepherd , AUTISM MOTOR SPECIALIST Other Provider Active Suraj Razo MD Other Provider Active Komal Albright MD Other Provider Active Angelia Gamez , AUTISM MOTOR SPECIALIST Other Provider Active Mariana Xiong RN Other Provider Active Shop And Alteration Tailor Relationship Specialty Start Date End Date Komal Nguyen MD [address] [place] [address] PCP - General 05/18/23 Shop And Alteration Tailor Relationship Specialty Start Date End Date Komal Nguyen MD [address] [facility] [address] [place] [address] PCP - General Internal Medicine 01/02/23 Komal Nguyen MD [address] [place] [address] PCP - ACO Reach 01/12/23 Shop And Alteration Tailor Relationship Specialty Start Date End Date Komal Nguyen MD [address] [place] [address] PCP - General Internal Medicine 01/02/23 Komal Nguyen MD [address] [place] [address] PCP - ACO Reach 01/12/23 Shop And Alteration Tailor Relationship Specialty Start Date End Date Komal Nguyen MD [address] [place] [address] PCP - General Internal Medicine 01/02/23 Komal Nguyen MD [address] [place] [address] PCP - ACO Reach 01/12/23 Shop And Alteration Tailor Relationship Specialty Start Date End Date Komal Nguyen MD [address] [place] [address] PCP - General Internal Medicine 01/02/23 Komal Nguyen MD [address] [place] [address] PCP - ACO Reach 01/12/23 Shop And Alteration Tailor Relationship Specialty Start Date End Date Komal Nugyen MD [address] [place] [address] PCP - General Internal Medicine 01/02/23 Komal Nguyen MD [address] [place] [address] PCP - ACO Reach 01/12/23 Shop And Alteration Tailor Relationship Specialty Start Date End Date Komal Nguyen MD [address] [place] [address] PCP - General Internal Medicine 01/02/23 Komal Nguyen MD [address] [place] [address] PCP - ACO Reach 01/12/23 Source Comments (unrecognize d section and content) In the event this informatio n is protected by the [facility] Confidentiality of Alcohol and Drug Abuse Patient Records regulations: The Federal rules restrict any use of the information to criminally investigate or prosecute any alcohol or drug abuse patient.[facility] the event this information is protected by the Federal Confidentiality of Alcohol and Drug Abuse Patient Records regulations: The Federal rules restrict any use of the information to criminally investigate or prosecute any alcohol or drug abuse patient.[facility] Reason for Visit (unrecogniz ed section and content) Reason Comments Bladder Cancer Specialty Diagnoses / Procedures Referred By Contac t Referred To Contact Diagnoses Fever, unspecified Fever, immunocompromised patient Honorio Vuong MD [address] [place] [address] [facility] [address] [place] [address] Referral ID Status Reason Start Date Expiration Date Visits Re quested Visits Authorized [id number] 1 1 Reason Comments Follow-up 1yr Specialty Diagnoses / Procedures Referred By Contac t Referred To Contact Diagnoses Paroxysmal atrial fibrillation (CMS/HCC) Procedures ECG 12 Lead Baltazar Hoover DO [address] [facility], [facility] [address] [place] [address] Referral ID Status Reason Start Date Expiration Date V isits Requested Visits Authorized [id number] Authorized 09/20/2023 09/19/2024 1 1 Specialty Diagnoses / Procedures Referred By Contac t Referred To Contact Physical Therapy Diagnoses Myasthenia gravis without (acute) exacerbation (CMS/HCC) Procedures DE PHYSICAL THERAPY EVALUATION LOW COMPLEX 20 MINS Chip, Christopher, MD [address] [place] [address] Darinel Smith, PT [address] [facility] [address] [place] [address] Referral ID Status Reason Start Date Expiration Date V isits Requested Visits Authorized [id number] Authorized 09/01/2023 02/28/2024 30 30 Reason Comments Medicare Annual Wellness Visit Evelia kaufman Results labs discuss medication dosage Pt states rece ntly he increased his gabapentin to 2 capsules --if this is ok will need directions changed Goals (unrecognized section and content) Goals may be documented in a n alternate section Scheduled Active and Recently Administ ered Medications (unrecognized section and content) Medication Order 10/16/2022 10/17/2022 10/18/2022 amLODIPine (NORVASC) tablet 5 mg 5 mg, Oral, DAILY, First dose on 10/16/22 at 1300, Until Discontinued 1201 (Given - Provider: Pippa Uriarte RN) 0815 (Given - Provider: Adebayo Lopez RN) 0923 (Given - Provider: Adebayo Lopez RN) apixaban (ELIQUIS) tablet 5 mg 5 mg, Oral, 2 times daily, First dose on 10/16/22 at 1200, Until Discontinued, Indication of Use: History of DVT/PE (indefinite), ANTICOAGULANT 1257 (Given - Provider: Pippa Uriarte RN)2037 (Given - Provider: Shasta Ryan) 0816 (Given - Provider: Adebayo Lopez RN)2045 (Given - Provider: Silke Haney RN) 0923 (Given - Provider: Adebayo Lopez RN)2100 (Due) carvedilol (COREG) tablet 12.5 mg 12.5 mg, Oral, DAILY, First dose on 10/16/22 at 1300, Until Discontinued, Administer with food to minimize the risk of orthostatic hypotension 1202 (Given - Provider: Pippa Uriarte RN) 0815 (Given - Provider: Adebayo Lopez RN) 0923 (Given - Provider: Adebayo Lopez RN) cefepime (MAXIPIME) 2,000 mg in sterile water 20 mL IV syringe (CANCELED) 2,000 mg, IntraVENous, at 40 mL/hr, Administer over 30 Minutes, EVERY 12 HOURS, First dose on Mon10/16/22 at 1815, For 14 days, Administer as slow IV Push over 5 mins Reconstitute 2 g vial with 10 mL of designated diluent. Then, to produce a 100 mg/mL solution, further dilute in syringe to 20 mL. 1904 (Given - Provider: Shasta Ryan) 0630 (Given - Provider: Shasta Ryan) furosemide (LASIX) tablet 20 mg 20 mg, Oral, DAILY, First dose on Mon10/16/22 at 1300, Until Discontinued 1202 (Given - Provider: Pippa Uriarte RN) 0816 (Given - Provider: Adebayo Lopez RN) 0923 (Given - Provider: Adebayo Lopez RN) gabapentin (NEURONTIN) capsule 300 mg 300 mg, Oral, DAILY, First dose on Mon10/16/22 at 1300, Until Discontinued 1202 (Given - Provider: Pippa Uriarte RN) 0816 (Given - Provider: Adebayo Lopez RN) 0923 (Given - Provider: Adebayo Lopez RN) lactobacillus (CULTURELLE) capsule 1 capsule 1 capsule, Oral, 2 TIMES DAILY WITH MEALS, First dose (after last modification) on Mon10/17/22 at 0030, Until Discontinued, Do not add to warm or hot foods or beverages. Caps may be opened & mixed in a cool beverage or sprinkled onto baby food or applesauce. Mix entire packet content into cool food or drink until dissolved., STAT 0133 (Given - Provider: Shasta Ryan)0816 (Given - Provider: Adebayo Lopez RN)1702 (Given - Provider: Adebayo Lopez RN) 0923 (Given - Provider: Adebayo Lopez RN)1700 (Due) potassium chloride (KLOR-CON M) extended release tablet 40 mEq (COMPLETED) 40 mEq, Oral, ONCE, 1 dose, On Mon10/18/22 at 0745, Do not crush, chew, or suck on tablet. Tablet may also be broken in half and each half swallowed separately. 0923 (Given - Provider: Adebayo Lopez RN) pyridostigmine (MESTINON) tablet 60 mg 60 mg, Oral, 4 TIMES DAILY, First dose on 10/16/22 at 1300, Until Discontinued 1202 (Given - Provider: Pippa Uriarte RN)1717 (Given - Provider: Pippa Uriarte RN)203 (Given - Provider: Shasta Ryan) 0816 (Given - Provider: Adebayo Lopez RN)1238 (Given - Provider: Adebayo Lopez RN)170 (Given - Provider: Adebayo Lopez RN)2045 (Given - Provider: Silke Haney RN) 0923 (Given - Provider: Adebayo Lopez RN)1300 (Due)1700 (Due)2100 (Due) sodium chloride flush 0.9 % injection 5-40 mL 5-40 mL, IntraVENous, EVERY 12 HOURS SCHEDULED (2 times per day), First dose on 10/15/22 at 2100, Until Discontinued, For Line Patency: Peripheral IV = 5 mL; Midline or Central Line = 10 mL/lumen. If following IV push medication, administer flush at same rate as the IV push. Flush volume is determined by type of infusion therapy being given. For non-viscous solutions use: Peripheral IV = 5 mL Midline or Central Line = 10 mL/lumen For viscous solutions (i.e. blood components, parenteral nutrition, contrast media, or after obtaining blood sample) use: Peripheral IV = 10 mL Midline or Central Line = 20 mL/lumen 0845 (Not Given - Provider: Pippa Uriarte RN - Reason: IV Fluid Infusing)2007 (Not Given - Provider: Shasta Ryan - Reason: IV Fluid Infusing) 0753 (Not Given - Provider: Adebayo Lopez RN - Reason: Contraindicated)2045 (Given - Provider: Silke Haney, HEATHER) 1100 (Not Given - Provider: Adebayo Lopez RN - Reason: Loss of IV access)2100 (Due) PRN Medication Order 10/16/2022 10/17/2022 10/18/2022 0.9 % sodium chloride infusion IntraVENous, at 5-250 mL/hr, PRN, if patient receiving piggyback infusions and maintenance fluids are not ordered OR KVO fluids to protect IV site / prevent frequent line interruptions/ long duration, Starting on 10/15/22 at 1920, For piggyback infusion, administer at same rate as piggyback for a total of 25 mL. Enter 25 mL into dose field and piggyback rate into rate field of order. If piggyback is infusing at a rate less than 100 mL/hr, enter 25 mL into dose field and 100 mL/hr into rate field of order. For KVO fluids, enter rate of 20 mL/hr or less into rate field of order. acetaminophen (TYLENOL) suppository 650 mg(Linked Group 1) 650 mg, Rectal, EVERY 6 HOURS PRN, Starting on 10/15/22 at 1920, Until Discontinued, Pain Mild (1-3), Fever, For temp greater than 100.4 F (38 C), Administer if oral route cannot be used. 1302 (See Alternative - Provider: Pippa Uriarte RN) acetaminophen (TYLENOL) tablet 650 mg(Linked Group 1) 650 mg, Oral, EVERY 6 HOURS PRN, Starting on 10/15/22 at 1920, Until Discontinued, Pain Mild (1-3), Fever, For temp greater than 100.4 F (38 C), Maximum dose of acetaminophen is 4000 mg from all sources in 24 hours. 1302 (Given - Provider: Pippa Uriarte RN) loperamide (IMODIUM) capsule 2 mg 2 mg, Oral, 4 TIMES DAILY PRN, Starting on 10/17/22 at 0055, Until Discontinued, Diarrhea, After each loose stool. 0133 (Given - Provider: Shasta Ryan)0816 (Given - Provider: Adebayo Lopez, HEATHER)1501 (Given - Provider: Adebayo Lopez, HEATHER)2046 (Given - Provider: Silke Haney RN) magnesium sulfate 1000 mg in dextrose 5% 100 mL IVPB 1,000 mg, IntraVENous, at 100 mL/hr, Administer over 1 Hours, PRN, Other, Per IV Magnesium Replacement Protocol, Starting on 10/15/22 at 1920, Mg Lab Replacement Action 1.4-1.6 1 gram IVPB x 2 doses (2 gram Total) 1.0-1.3 1 gram IVPB x 4 doses (4 gram Total) <1.0 CALL PHYSICIAN and 1 gram IVPB x 4 doses (4 gram Total) Infuse at 1 gram/hr Repeat Mag level next AM Protocol not for use in Patients with CrCl<30ml/min ondansetron (ZOFRAN) injection 4 mg(Linked Group 2) 4 mg, IntraVENous, EVERY 6 HOURS PRN, Starting on 10/15/22 at 1920, Until Discontinued, Nausea, Vomiting, Administer if oral route cannot be used. ondansetron (ZOFRAN-ODT) disintegrating tablet 4 mg(Linked Group 2) 4 mg, Oral, EVERY 8 HOURS PRN, Starting on 10/15/22 at 1920, Until Discontinued, Nausea, Vomiting polyethylene glycol (GLYCOLAX) packet 17 g 17 g, Oral, DAILY PRN, Starting on 10/15/22 at 1920, Until Discontinued, Constipation, First line therapy for constipation potassium bicarb-citric acid (EFFER-K) effervescent tablet 40 mEq(Linked Group 3) 40 mEq, Oral, PRN, Starting on 10/15/22 at 1920, Until Discontinued, Per Potassium Replacement Protocol, Administer as alternative if patient unable to tolerate oral tablet. K Lab Replacement Action 3.1 to 3.5 40 mEq ORAL x 1 Under 3.1 Refer to IV replacement protocol Recheck K level in AM. Protocol not for use in patients with CrCl less than 30 mL/min. Do not chew or crush. Dissolve flavored tablets completely in 3 to 4 ounces of cold water; unflavored tablets may be dissolved in 3 to 4 ounces of cold juice. Patient to sip slowly over a 5 to 10 minute period. May further dilute if GI adverse effects occur. potassium chloride (KLOR-CON M) extended release tablet 40 mEq(Linked Group 3) 40 mEq, Oral, PRN, Starting on 10/15/22 at 1920, Until Discontinued, Potassium Replacement, May give oral solution if patient unable to tolerate tablet. K Lab Replacement Action 3.1-3.5 40 mEq ORAL x 1 2.7-3.0 Refer to IV replacement orders < 2.7 Refer to IV replacement orders Recheck K level in AM. Not for use in patients with CrCl less than 30 mL/min. potassium chloride 10 mEq/100 mL IVPB (Peripheral Line)(Linked Group 3) 10 mEq, IntraVENous, PRN, Starting on 10/15/22 at 1920, Until Discontinued, at 100 mL/hr, Potassium Replacement, K Lab Replacement Action 2.7-3.0 10 mEq IVPB x 6 doses (60 mEq Total) < 2.7 CALL PHYSICIAN and 10 mEq IVPB x 6 doses (60 mEq Total) Infuse at 10 mEq/hr Repeat Potassium lab 1 hour after final administration. Not for use in patients with CrCl less than 30 mL/min. sodium chloride flush 0.9 % injection 10 mL 10 mL, IntraVENous, PRN, Starting on 10/15/22 at 1920, Until Discontinued, Line Care, After every IV line use Linked Groups Order Group 1: acetaminophen (TYLENOL) tablet 650 mgJump to med 650 mg, Oral, EVERY 6 HOURS PRN, Starting on 10/15/22 at 1920, Until Discontinued, Pain Mild (1-3), Fever, For temp greater than 100.4 F (38 C)
Maximum dose of acetaminophen is 4000 mg from all sources in 24 hours.
Or acetaminophen (TYLENOL) suppository 650 mgJump to med 650 mg, Rectal, EVERY 6 HOURS PRN, Starting on 10/15/22 at 1920, Until Discontinued, Pain Mild (1-3), Fever, For temp greater than 100.4 F (38 C)
Administer if oral route cannot be used.
Group 2: ondansetron (ZOFRAN-ODT) disintegrating tablet 4 mgJump to med 4 mg, Oral, EVERY 8 HOURS PRN, Starting on 10/15/22 at 1920, Until Discontinued, Nausea, Vomiting Or ondansetron (ZOFRAN) injection 4 mgJump to med 4 mg, IntraVENous, EVERY 6 HOURS PRN, Starting on 10/15/22 at 1920, Until Discontinued, Nausea, Vomiting
Administer if oral route cannot be used.
Group 3: potassium chloride (KLOR-CON M) extended release tablet 40 mEqJump to med 40 mEq, Oral, PRN, Starting on 10/15/22 at 1920, Until Discontinued, Potassium Replacement
May give oral solution if patient unable to tolerate tablet. K Lab Replacement Action 3.1-3.5 40 mEq ORAL x 1 & nbsp; 2.7-3.0 Refer to IV replacement orders < 2.7 Refer to IV replacement orders Recheck K level in AM. Not for use in patients with CrCl less than 30 mL/min.
Or potassium bicarb-citric acid (EFFER-K) effervescent tablet 40 mEqJump to med 40 mEq, Oral, PRN, Starting on 10/15/22 at 1920, Until Discontinued, Per Potassium Replacement Protocol
Administer as alternative if patient unable to tolerate oral tablet. K Lab Repla cemen t Action 3.1 to 3.5 40 mEq ORAL x 1 Under 3.1 Refer to IV replacement protocol Recheck K level in AM. Protocol not for use in patients with CrCl less than 30 mL/min. Do not chew or crush. Dissolve flavored tablets completely in 3 to 4 ounces of cold water; unflavored tablets may be dissolved in 3 to 4 ounces of cold juice. Patient to sip slowly over a 5 to 10 minute period. May further dilute if GI adverse effects occur.
Or potassium chloride 10 mEq/100 mL IVPB (Peripheral Line)Jump to med 10 mEq, IntraVENous, PRN, Starting on 2/25/23 at 1920, Until Discontinued, at 100 mL/hr, Potassium Replacement
K Lab Replacement Action 2.7-3.0 10 mEq IVPB x 6 doses (60 mEq Total) < 2.7 CALL PHYSICIAN and 10 mEq IVPB x 6 doses (60 mEq Total) Infuse at 10 mEq/hr Repeat Potassium lab 1 hour after final administration. Not for use in patients with CrCl less than 30 mL/min.
FOR RECORDS PERTAINING TO PATIENTS WHO ARE OR HAVE BEEN ENROLLED IN A CHEMICAL DEPENDENCY/SUBSTANCEABUSE PROGRAM, SOME INFORMATION MAY BE OMITTED. This clinical summary was aggregated from multiple sources. Caution should be exercised in using it in the provision of clinical care. This summary normalizes information from multiple sources, and as a consequence, information in this document may materially change the coding, format and clinical context of patient data. In addition, data may be omitted in some cases. CLINICAL DECISIONS SHOULD BE BASED ON THE PRIMARY CLINICAL RECORDS. [employer] provides no warranty or guarantee of the accuracy or completeness of information in this document.
--- NOTE | 2024-01-27 12:16 | XR_ITS ---
The [address] [address] Patient Name: TAURUS GARCIA MRN: [id number] date: 1945 Sex: M Assigned Patient Location: ER Current Patient Location: ER Accession/Order Number: [id number] Exam Date: 01/27/2024 13:10 Report Date: 01/27/2024 14:29 At the request of: NIESHA COLE Procedure: XR knee LT 4V PROCEDURE: XR knee LT 4V, 01/27/2024 1:10 PM EDT CLINICAL INDICATIONS: Left knee pain, giving out, pain with weightbearing COMPARISON: None TECHNIQUE: Left knee, 4 views FINDINGS: The bones are normal density. Acute osseous pathology is not demonstrated. There is mild medial femoral tibial patellofemoral osteoarthrosis. Quadriceps enthesopathy is present. Calcific distal quadriceps enthesopathy is favored. Possible osseous bodies; Suprapatellar level, 0.7 cm. Dorsal femoral tibial level, 0.6 cm. Diffuse subcutaneous edema noted. No large knee effusion. XR/XR knee LT 4V IMPRESSION: 1. No acute osseous pathology 2. Osteoarthrosis 3. Patellar enthesopathy with probable calcific quadriceps tendinopathy. 4. No acute osseous pathology 5. Probable suprapatellar and dorsal femoral tibial level osseous bodies 6. Subcutaneous edema, no large knee effusion Electronically authenticated by: CORA CARMONA Date: 01/27/2024 14:29
--- NOTE | 2024-01-27 13:42 | ED.GENADUL1 ---
HPI HPI - General Adult General Chief complaint: Extremity Injury, Lower Stated complaint: L KNEE PAIN Time Seen by Provider: 01/27/24 12:15 Source: patient Mode of arrival: ambulance History of Present Illness HPI narrative: Patient presents to ED after his knee giving out at home. He states that he was walking up the stairs and he was having some trouble ambulating up the stairs. When he got to the top of the stairs and tried to step up the steps his left knee gave out. He said he did not fall but he had extreme pain in the left knee and he had some pain with trying to move it or walk or bear weight. He said he feels a little bit better right now. He has pain with flexion at the knee. Ice is in place and he does say that feels better. Normal distal pulses and sensation and motor intact. No other injury. No fall. Related Data Home Medications ?Medication ?Instructions ?Recorded ?Confirmed apixaban 5 mg tablet (Eliquis) 5 mg PO Q12H 05/09/23 01/22/24 baclofen 10 mg tablet 10 mg PO Q8H 05/09/23 01/22/24 furosemide 20 mg tablet 20 mg PO DAILY 05/09/23 01/22/24 hydralazine 50 mg tablet 50 mg PO Q12H 05/09/23 01/22/24 lisinopril 20 mg tablet 20 mg PO DAILY 05/09/23 01/22/24 loratadine 10 mg tablet (Claritin) 10 mg PO DAILY 05/09/23 01/22/24 multivitamin 1 tab PO DAILY 05/09/23 01/22/24 nebivolol 10 mg tablet 10 mg PO DAILY 05/09/23 01/22/24 omega-3 fatty acids 1,200 mg PO BID 05/09/23 01/22/24 potassium chloride 10 mEq 10 meq PO DAILY 05/09/23 01/22/24 tablet,extended release(part/cryst) prednisone 10 mg tablet 10 mg PO DAILY 05/09/23 01/22/24 pyridostigmine bromide 60 mg tablet 60 mg PO Q6H 05/09/23 01/22/24 simvastatin 40 mg tablet 40 mg PO DAILY 05/09/23 01/22/24 triamterene 37.5 1 tab PO DAILY 05/09/23 01/22/24 mg-hydrochlorothiazide 25 mg tablet gabapentin 300 mg capsule 300 mg PO DAILY 12/18/23 01/22/24 doxycycline hyclate 100 mg capsule 100 mg PO BID 01/22/24 01/22/24 Previous Rx's ?Medication ?Instructions ?Recorded hydrocodone 5 mg-acetaminophen 325 1 tab PO DAILY PRN pain #30 tabs 12/28/23 mg tablet naloxone 4 mg/actuation nasal 1 spray intranasal Q2M PRN opioid 12/28/23 spray (Narcan) overdose #2 ea Allergies Allergy/AdvReac Type Severity Reaction Status Date / Time No Known Drug Allergies Allergy Verified 01/22/24 10:47 Opioid HPI Opioid Management Most Recent Opioid Data: Last Pain Scale 1 01/22/24 10:54 Review of Systems ROS Status of ROS 10 or more systems reviewed and unremarkable except as noted in history and below [facility] Medical History Myasthenia gravis ?G70.00 - Myasthenia gravis without (acute) exacerbation (ICD-10) CKD (chronic kidney disease) stage 3, GFR 30-59 ml/min ?N18.30 - Chronic kidney disease, stage 3 unspecified (ICD-10) History of pulmonary embolism ?Z86.711 - Personal history of pulmonary embolism (ICD-10) Hypertension ?I10 - Essential (primary) hypertension (ICD-10) Bladder cancer ?C67.9 - Malignant neoplasm of bladder, unspecified (ICD-10) Pulmonary embolism ?I26.99 - Other pulmonary embolism without acute cor pulmonale (ICD-10) Surgical History Previous back surgery ?Z98.890 - Other specified postprocedural states (ICD-10) History of appendectomy ?Z90.49 - Acquired absence of other specified parts of digestive tract (ICD-10) Family History Mother Family history of cancer Grandmother Family history of diabetes mellitus Father Family history of myocardial infarction Social History Within the past year, how often did you have a drink containing alcohol: monthly or less Within the past year, how many standard drinks containing alcohol did you have on a typical day: 1 or 2 Within the past year, how often did you have six or more drinks on one occasion: never Total score: 0 Score interpretation: A score less than 4 is consistent with normal alcohol consumption. 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 Known occupational exposures/hazards: No Highest level of school completed/degree received: high school graduate Are you now , , , , never or living with a partner: In a typical week, how many times do you talk on the telephone with family, friends, or neighbors: once per week How often do you get together with friends or relatives: once per week How often do you attend scientologist or presybeterian services: never Do you belong to any clubs or organizations such as scientologist groups unions, [employer] or athletic groups, or school groups: no Total score: 1 Score interpretation: A score of less than or equal to 1 indicates the most socially isolated. Little interest or pleasure in doing things: not at all Feeling down, depressed, or hopeless: not at all Feel stressed/tense/nervous/anxious/difficulty sleeping: not at all Due to disability, difficulty making decisions: No Do you think of yourself as: straight/heterosexual Gender Identity: male Exam Narrative Exam Narrative: General: alert, no acute distress Cardiovascular: regular rate and rhythm, normal peripheral perfusion. Respiratory: Lungs CTA, respirations non labored. Extremities: no deformity, Pain with flexion of the knee. Normal distal pulses. Normal sensation and motor. Very mild pain with palpation worse in the medial aspect of the knee Neurological: oriented x 4, LOC appropriate for age. Constitutional Vital Signs, click to edit/add: Last Vital Signs Temp 98.1 F 01/27/24 11:53 Pulse 52 L 01/27/24 14:01 Resp 18 01/27/24 14:01 BP 146/73 H 01/27/24 14:01 Pulse Ox 94 L 01/27/24 14:01 O2 Del Method Room Air 01/27/24 11:53 Course Vital Signs Vital signs: Vital Signs Temperature 98.1 F 01/27/24 11:53 Pulse Rate 58 L 01/27/24 11:53 Respiratory Rate 16 01/27/24 11:53 Blood Pressure 171/66 H 01/27/24 11:53 Pulse Oximetry 96 01/27/24 11:53 Oxygen Delivery Method Room Air 01/27/24 11:53 Temperature 98.1 F 01/27/24 11:53 Pulse Rate 52 L 01/27/24 14:01 Respiratory Rate 18 01/27/24 14:01 Blood Pressure 146/73 H 01/27/24 14:01 Pulse Oximetry 94 L 01/27/24 14:01 Oxygen Delivery Method Room Air 01/27/24 11:53 Medical Decision Making MDM Narrative Medical decision making narrative: Patient's knee shows arthritis and some loose bodies. He was given an Mauricio wrap here for the knee and instructed to follow-up with orthopedics. Will refer to Dr. Kramer if he does not have a different orthopedic doctor. Take Tylenol Motrin for the pain continue to ice on and off and rest the knee. Differential Diagnosis Differential Diagnosis: Knee sprain strain fracture ligament injury Medical Records Medical records reviewed: Yes I reviewed the patient's medical records Imaging Data Chest x-ray: Radiologist's impression: ITS Impressions Knee X-Ray 01/27/24 12:16 IMPRESSION: 1. No acute osseous pathology 2. Osteoarthrosis 3. Patellar enthesopathy with probable calcific quadriceps tendinopathy. 4. No acute osseous pathology 5. Probable suprapatellar and dorsal femoral tibial level osseous bodies 6. Subcutaneous edema, no large knee effusion Electronically authenticated by: CORA CARMONA Date: 01/27/2024 14:29 Discharge Plan Discharge Stand Alone Forms: Portal Instructions Chief Complaint: Extremity Injury, Lower Clinical Impression: Left knee sprain Patient Disposition: Home, Self-Care Time of Disposition Decision: 14:38 Condition: Good Mode of Transportation: Private Vehicle Prescriptions / Home Meds: No Action Eliquis 5 mg tablet 5 mg PO Q12H baclofen 10 mg tablet 10 mg PO Q8H hydralazine 50 mg tablet 50 mg PO Q12H triamterene-hydrochlorothiazid 37.5-25 mg tablet 1 tab PO DAILY pyridostigmine bromide 60 mg tablet 60 mg PO Q6H potassium chloride 10 mEq tablet,ER particles/crystals 10 meq PO DAILY nebivolol 10 mg tablet 10 mg PO DAILY prednisone 10 mg tablet 10 mg PO DAILY simvastatin 40 mg tablet 40 mg PO DAILY furosemide 20 mg tablet 20 mg PO DAILY lisinopril 20 mg tablet 20 mg PO DAILY omega-3 fatty acids Capsule 1,200 mg PO BID loratadine [Claritin] 10 mg tablet 10 mg PO DAILY multivitamin Tablet 1 tab PO DAILY hydrocodone-acetaminophen 5-325 mg tablet 1 tab PO DAILY PRN (Reason: pain) Qty: 30 0RF naloxone [Narcan] 4 mg/actuation spray,non-aerosol 1 spray intranasal Q2M PRN (Reason: opioid overdose) Qty: 2 1RF Rx Instructions: spray 1 dose into ONE nostril; alternate nostrils w each dose until help arrives doxycycline hyclate 100 mg capsule 100 mg PO BID gabapentin 300 mg capsule 300 mg PO DAILY Print Language: Belarusian Instructions: Knee Sprain (ED) Referrals: KOMAL SCHAFFER [Primary Care Provider] - 1 week Wilton Kramer MD [Physician] - 1 week
[2024-01-27 14:01] VITALS: BP 146/73; PULSE 52; O2SAT 94
== END 2024-01-27 15:03 | disposition home or self-care (01) ==
PROVIDERS: Emergency Provider Emergency Medicine; PCP Internal Medicine
DX: S83.92XA Sprain of unspecified site of left knee, initial encounter (principal); X58.XXXA Exposure to other specified factors, initial encounter
CPT/HCPCS: 73564; 99283

== ENCOUNTER 2024-01-31 13:53 | Outpatient (OUT) | payer MEDICARE, SELFPAY ==
--- NOTE | 2024-01-31 14:14 | PM.CN ---
Consult Note: HPI Data of Consult Patient: known to practice within the last 3 years Consult date: 12/18/23 Requesting Physician: Kimberly Wright NP Primary Care Provider: KOMAL SCHAFFER Consult Narrative Reason for consult: low back, right leg pain Narrative: 78yom who presents for evaluation. worsening low back, right leg pain over several months. longstanding problem, no acute event. lumbar XR shows multilevel degeneration, recent MRI shows moderate to severe degenerative changes and stenosis as noted below. continues in provider directed home exercise course >6 weeks, with minimal benefit. has completed PT. uses norco daily as needed with benefit. on apixaban, so no nsaids. Patient recently underwent right L3/4 L4/5 TFESI and right SIJ injection with >80% improvement in pain and functional ability ongoing. Patient would like PT for strength and balance as he is noticing generalized weakness and now utilizing walker/cane more frequently. cc:: CC: Kimberly Wright NP Review of Systems ROS Status of ROS 10 or more systems reviewed and unremarkable except as noted in history and below Musculoskeletal Reports: back pain and joint pain PFSH PFSH Medical History Myasthenia gravis ?G70.00 - Myasthenia gravis without (acute) exacerbation (ICD-10) CKD (chronic kidney disease) stage 3, GFR 30-59 ml/min ?N18.30 - Chronic kidney disease, stage 3 unspecified (ICD-10) History of pulmonary embolism ?Z86.711 - Personal history of pulmonary embolism (ICD-10) Hypertension ?I10 - Essential (primary) hypertension (ICD-10) Bladder cancer ?C67.9 - Malignant neoplasm of bladder, unspecified (ICD-10) Pulmonary embolism ?I26.99 - Other pulmonary embolism without acute cor pulmonale (ICD-10) Surgical History Previous back surgery ?Z98.890 - Other specified postprocedural states (ICD-10) History of appendectomy ?Z90.49 - Acquired absence of other specified parts of digestive tract (ICD-10) Family History Mother Family history of cancer Grandmother Family history of diabetes mellitus Father Family history of myocardial infarction Social History Within the past year, how often did you have a drink containing alcohol: monthly or less Within the past year, how many standard drinks containing alcohol did you have on a typical day: 1 or 2 Within the past year, how often did you have six or more drinks on one occasion: never Total score: 0 Score interpretation: A score less than 4 is consistent with normal alcohol consumption. 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 Known occupational exposures/hazards: No Highest level of school completed/degree received: high school graduate Are you now , , , , never or living with a partner: In a typical week, how many times do you talk on the telephone with family, friends, or neighbors: once per week How often do you get together with friends or relatives: once per week How often do you attend spiritism or oriental orthodox services: never Do you belong to any clubs or organizations such as spiritism groups unions, [employer] or athletic groups, or school groups: no Total score: 1 Score interpretation: A score of less than or equal to 1 indicates the most socially isolated. Little interest or pleasure in doing things: not at all Feeling down, depressed, or hopeless: not at all Feel stressed/tense/nervous/anxious/difficulty sleeping: not at all Due to disability, difficulty making decisions: No Do you think of yourself as: straight/heterosexual Gender Identity: male Meds Home Medications and Allergies Home Medications ?Medication ?Instructions ?Recorded ?Confirmed ?Type apixaban 5 mg tablet (Eliquis) 5 mg PO Q12H 05/09/23 01/22/24 History baclofen 10 mg tablet 10 mg PO Q8H 05/09/23 01/22/24 History furosemide 20 mg tablet 20 mg PO DAILY 05/09/23 01/22/24 History hydralazine 50 mg tablet 50 mg PO Q12H 05/09/23 01/22/24 History lisinopril 20 mg tablet 20 mg PO DAILY 05/09/23 01/22/24 History loratadine 10 mg tablet (Claritin) 10 mg PO DAILY 05/09/23 01/22/24 History multivitamin 1 tab PO DAILY 05/09/23 01/22/24 History nebivolol 10 mg tablet 10 mg PO DAILY 05/09/23 01/22/24 History omega-3 fatty acids 1,200 mg PO BID 05/09/23 01/22/24 History potassium chloride 10 mEq 10 meq PO DAILY 05/09/23 01/22/24 History tablet,extended release(part/cryst) prednisone 10 mg tablet 10 mg PO DAILY 05/09/23 01/22/24 History pyridostigmine bromide 60 mg tablet 60 mg PO Q6H 05/09/23 01/22/24 History simvastatin 40 mg tablet 40 mg PO DAILY 05/09/23 01/22/24 History triamterene 37.5 1 tab PO DAILY 05/09/23 01/22/24 History mg-hydrochlorothiazide 25 mg tablet gabapentin 300 mg capsule 300 mg PO DAILY 12/18/23 01/22/24 History hydrocodone 5 mg-acetaminophen 325 1 tab PO DAILY PRN pain #30 tabs 12/28/23 01/22/24 Rx mg tablet naloxone 4 mg/actuation nasal 1 spray intranasal Q2M PRN opioid 12/28/23 01/22/24 Rx spray (Narcan) overdose #2 ea doxycycline hyclate 100 mg capsule 100 mg PO BID 01/22/24 01/22/24 History Allergies Allergy/AdvReac Type Severity Reaction Status Date / Time No Known Drug Allergies Allergy Verified 01/22/24 10:47 Exam Constitutional Documenting provider has reviewed patient's vital signs: yes Common normals: no apparent distress, oriented x3, healthy appearing, alert and well nourished General appearance: cooperative HENMN Common normals: normocephalic, hearing grossly normal bilaterally and moist oral mucous membranes Head and scalp: normocephalic Eye Common normals: PERRL Pupil: PERRL Neck & C-Spine Common normals: full ROM General: normal visual inspection Chest Common normals: inspection of chest normal Respiratory Common normals: normal respiratory effort, no retractions and no use of accessory muscles Back & Pelvis Lumbar spine/lower back: normal to inspection, lumbar ROM normal and straight leg raise negative bilaterally Sacroiliac joints: SI joints normal Other: strength 4/5 in BLE sensation intact BLE Extremity Left lower extremity: knee joint Other: mild pain and edema noted Neuro Common normals: oriented x3, CN's II-XII intact bilaterally, moves all extremities, no focal motor deficits, no sensory deficits noted and deep tendon reflexes 2+ bilaterally Sensorium/orientation: alert Motor exam: strength 5/5 throughout and no movement abnormalities noted Psych Common normals: mental status grossly normal, thought process normal, cooperative, affect normal, speech normal and activity/motor behavior normal Speech: normal speech Thought process: normal thought process Results Additional Findings Additional findings: If on a controlled substance or opioids, I have checked an [place] report on this patient and there are no aberrancies noted in the prescribing history.??If on a controlled substance or opioid a drug screen was completed and reviewed within the last year, and if there has not been a drug screen completed we ordered one today to monitor higher risk, state monitored pain medication use. As part of providing excellent, safe, comprehensive care, the following was completed at our patient's visit: 1. A medication reconciliation and review to ensure accurate knowledge of current/active medications, including asking our patients to inform us about any [id number] medications or herbal remedies/nutritional supplements/alternative remedies. 2. A review to specifically ensure our patients have had annual screening for screening for depression, screening for tobacco use, and screening for unhealthy alcohol use. For concerning screenings had a discussion with the patient, provided patient education, and recommended follow-up with primary care provider when appropriate. If patient noted with a risk of falling, they received education on strength, gait, and balance training to prevent future risk of falling. Assessment and Plan Assessment and Plan (1) Lumbar stenosis with neurogenic claudication: (2) Sacroiliitis: (3) Generalized weakness: (4) Chronic prescription opiate use: Assessment and Plan: I feel these medications are improving the patient's quality of life and allow them to tolerate activities of daily living as well as participate in recreational activity.? The patient does not report intolerable side effects. The patient is NOT opioid naive and non-pharmacologic and non-opioid treatment has failed to significantly relieve the patient's pain and improve functionality. The patient has a diagnosis that is related to a somatic or visceral pain etiology. ? ?? I reviewed with the patient the potential risks and side effects with the use of? opioid medications including but not limited to respiratory depression,? sedation, and even . I verified the patient has access to naloxone should? these effects occur. I advised the patient to avoid the use of any other? sedation substances including alcohol, THC, and benzodiazepines while? taking opioid medications due to the risk of compounding side effects and? detrimental outcomes. I reviewed the [facility], pain treatment agreement, urine? drug screen, and opioid start talking forms. The patient was advised to let? their family know they had Naloxone in case they would need to administer? the medication.? ?? A drug screen was completed within the last year, and no aberrancies were noted regarding their use of controlled substances. The patient understands they are subject to the terms and conditions of the pain contract that they have signed. ? ?? I have checked an OAR[place] report on this patient today and there are no aberrancies noted in the prescribing history.? Plan PT for strength and balance, patient would like to go to [facility] cannot take NSAIDs, on eliquis, has failed acetaminophen. Patient finds moderate benefit from gabapentin 300mg BID and norco 5-325mg once daily as needed. Patient utilizing norco less frequently since injections. denies side effects UDS today f/u 3 months, sooner if needed
== END 2024-01-31 13:54 | disposition home or self-care (01) ==
LOC: PM 13:53
PROVIDERS: PCP Internal Medicine; Visit Provider Nurse Practitioner
DX: M48.062 Spinal stenosis, lumbar region with neurogenic claudication (principal); M46.1 Sacroiliitis, not elsewhere classified; R53.83 Other fatigue; Z79.891 Long term (current) use of opiate analgesic
CPT/HCPCS: G0463

== ENCOUNTER 2024-02-26 10:36 | Emergency (ER) | payer MEDICARE, SELFPAY ==
[2024-02-26 10:39] VITALS: BP 128/46; PULSE 82; TEMP 36.9; O2SAT 96; BMI 47.6
--- NOTE | 2024-02-26 11:20 | XR_ITS ---
[address] [address] Patient Name: TAURUS GARCIA MRN: [id number] date: 1945 Sex: M Assigned Patient Location: ER Current Patient Location: ED.MAIN Accession/Order Number: [id number] Exam Date: 02/26/2024 11:30 Report Date: 02/26/2024 12:25 At the request of: TERRELL WRIGHT Procedure: XR knee LT 3V PROCEDURE: XR knee LT 3V COMPARISON: None. HISTORY: injury, pain FINDINGS: BONES:No fracture, acute abnormality, or significant arthropathy. SOFT TISSUES:Negative. No visible soft tissue swelling. EFFUSION:Moderate suprapatellar joint effusion OTHER: Vascular calcifications XR/XR knee LT 3V IMPRESSION: Moderate joint effusion Electronically authenticated by: JORDAN RUTLEDGE Date: 02/26/2024 12:25
--- NOTE | 2024-02-26 16:59 | ED_ITS ---
HPI HPI - General Adult General Chief complaint: Extremity Injury, Lower Stated complaint: LOWER EXTREMITY INJURY Time Seen by Provider: 02/26/24 10:40 Source: patient Mode of arrival: Wheelchair History of Present Illness HPI narrative: 78-year-old male to the emergency department chief complaint of left knee pain. Patient reports that a few weeks ago he was diagnosed with a left knee sprain. He was feeling better. He has upcoming appoint with orthopedics this week. He reports 2 days ago he stepped down and experienced the same twinge of pain he had previously. His knee felt unstable at that point. It has been hurting again. Related Data Home Medications ?Medication ?Instructions ?Recorded ?Confirmed apixaban 5 mg tablet (Eliquis) 5 mg PO Q12H 05/09/23 01/22/24 baclofen 10 mg tablet 10 mg PO Q8H 05/09/23 01/22/24 furosemide 20 mg tablet 20 mg PO DAILY 05/09/23 01/22/24 hydralazine 50 mg tablet 50 mg PO Q12H 05/09/23 01/22/24 lisinopril 20 mg tablet 20 mg PO DAILY 05/09/23 01/22/24 loratadine 10 mg tablet (Claritin) 10 mg PO DAILY 05/09/23 01/22/24 multivitamin 1 tab PO DAILY 05/09/23 01/22/24 nebivolol 10 mg tablet 10 mg PO DAILY 05/09/23 01/22/24 omega-3 fatty acids 1,200 mg PO BID 05/09/23 01/22/24 potassium chloride 10 mEq 10 meq PO DAILY 05/09/23 01/22/24 tablet,extended release(part/cryst) prednisone 10 mg tablet 10 mg PO DAILY 05/09/23 01/22/24 pyridostigmine bromide 60 mg tablet 60 mg PO Q6H 05/09/23 01/22/24 simvastatin 40 mg tablet 40 mg PO DAILY 05/09/23 01/22/24 triamterene 37.5 1 tab PO DAILY 05/09/23 01/22/24 mg-hydrochlorothiazide 25 mg tablet gabapentin 300 mg capsule 300 mg PO DAILY 12/18/23 01/22/24 doxycycline hyclate 100 mg capsule 100 mg PO BID 01/22/24 01/22/24 Previous Rx's ?Medication ?Instructions ?Recorded hydrocodone 5 mg-acetaminophen 325 1 tab PO DAILY PRN pain #30 tabs 12/28/23 mg tablet naloxone 4 mg/actuation nasal 1 spray intranasal Q2M PRN opioid 12/28/23 spray (Narcan) overdose #2 ea Allergies Allergy/AdvReac Type Severity Reaction Status Date / Time No Known Drug Allergies Allergy Verified 01/22/24 10:47 Opioid HPI Opioid Management Most Recent Opioid Data: Last Pain Scale 4 02/26/24 10:46 Review of Systems ROS Status of ROS 10 or more systems reviewed and unremark able except as noted in history and below [facility] Medical History Myasthenia gravis ?G70.00 - Myasthenia gravis without (acute) exacerbation (ICD-10) CKD (chronic kidney disease) stage 3, GFR 30-59 ml/min ?N18.30 - Chronic kidney disease, stage 3 unspecified (ICD-10) History of pulmonary embolism ?Z86.711 - Personal history of pulmonary embolism (ICD-10) Hypertension ?I10 - Essential (primary) hypertension (ICD-10) Bladder cancer ?C67.9 - Malignant neoplasm of bladder, unspecified (ICD-10) Pulmonary embolism ?I26.99 - Other pulmonary embolism without acute cor pulmonale (ICD-10) Surgical History Previous back surgery ?Z98.890 - Other specified postprocedural states (ICD-10) History of appendectomy ?Z90.49 - Acquired absence of other specified parts of digestive tract (ICD- 10) Family History Mother Family history of cancer Grandmother Family history of diabetes mellitus Father Family history of myocardial infarction Social History Within the past year, how often did you have a drink containing alcohol: monthly or less Within the past year, how many standard drinks containing alcohol did you have on a typical day: 1 or 2 Within the past year, how often did you have six or more drinks on one occasion: never Total score: 0 Score interpretation: A score less than 4 is consistent with normal alcohol consumption. 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 Known occupational exposures/hazards: No Highest level of school completed/degree received: high school graduate Are you now , , , , never or living with a partner: In a typical week, how many times do you talk on the telephone with family, friends, or neighbors: once per week How often do you get together with friends or relatives: once per week How often do you attend christian or christianity services: never Do you belong to any clubs or organizations such as christian groups unions, fraternal or athletic groups, or school groups: no Total score: 1 Score interpretation: A score of less than or equal to 1 indicates the most socially isolated. Little interest or pleasure in doing things: not at all Feeling down, depressed, or hopeless: not at all Feel stressed/tense/nervous/anxious/difficulty sleeping: not at all Due to disability, difficulty making decisions: No Do you think of yourself as: straight/heterosexual Gender Identity: male Exam Narrative Exam Narrative: VITALS: I have reviewed the triage vital signs. GENERAL: Morbidly obese adult male in no distress NEURO: Alert and oriented. Moves all extremities. Face is symmetric and expressive. EYES: PERRL. No scleral icterus or conjunctival injection. No discharge. HENT: Normocephalic, atraumatic. Hearing is grossly intact. Nares grossly patent and without discharge. Mucous membranes moist. NECK: No JVD. Patient moves neck without restriction. Left Lower Extremity: DP and PT pulses intact. Limb is similar color and temperature to the contralateral limb. Compartments soft. No swelling. No ecchymosis. No medial malleolus tenderness. No lateral malleolus tenderness. No tenderness at the base of the fifth metatarsal. No midfoot tenderness. No fibular head tenderness. Able to bear weight with arches maintained. Sensation is intact over the foot and lower leg. Dorsiflexion/plantar flexion, knee flexion/extension, hip flexion/extension are grossly intact by strength testing. SKIN: Warm and dry. Normal turgor. No rash or lesions appreciated. PSYCH: Mood, affect, and interaction is appropriate to the setting. Constitutional Vital Signs, click to edit/add: Last Vital Signs Temp 98.5 F 02/26/24 10:39 Pulse 82 02/26/24 10:39 Resp 20 02/26/24 10:39 BP 128/46 L 02/26/24 10:39 Pulse Ox 96 02/26/24 10:39 O2 Del Method Room Air 02/26/24 10:39 Course Vital Signs Vital signs: Vital Signs Temperature 98.5 F 02/26/24 10:39 Pulse Rate 82 02/26/24 10:39 Respiratory Rate 20 02/26/24 10:39 Blood Pressure 128/46 L 02/26/24 10:39 Pulse Oximetry 96 02/26/24 10:39 Oxygen Delivery Method Room Air 02/26/24 10:39 Temperature 98.5 F 02/26/24 10:39 Pulse Rate 82 02/26/24 10:39 Respiratory Rate 20 02/26/24 10:39 Blood Pressure 128/46 L 02/26/24 10:39 Pulse Oximetry 96 02/26/24 10:39 Oxygen Delivery Method Room Air 02/26/24 10:39 Medical Decision Making MDM Narrative Medical decision making narrative: 78-year-old male to the emergency department left knee pain. Vital stable, the patient is afebrile. Left lower extremity is neurovascularly intact. X-ray with effusion. No evidence of septic arthritis. Inflammatory versus hemarthrosis. He has follow-up upcoming with orthopedics. He is able to ambu late. Mauricio wrap. Follow-up with orthopedics. Return precautions stephen. All questions were answered. Patient was discharged home. Discharge Plan Discharge Stand Alone Forms: Portal Instructions Chief Complaint: Extremity Injury, Lower Clinical Impression: Acute knee pain, Effusion of knee Patient Disposition: Home, Self-Care Time of Disposition Decision: 12:45 Condition: Good Mode of Transportation: Private Vehicle Prescriptions / Home Meds: No Action Eliquis 5 mg tablet 5 mg PO Q12H baclofen 10 mg tablet 10 mg PO Q8H hydralazine 50 mg tablet 50 mg PO Q12H triamterene-hydrochlorothiazid 37.5-25 mg tablet 1 tab PO DAILY pyridostigmine bromide 60 mg tablet 60 mg PO Q6H potassium chloride 10 mEq tablet,ER particles/crystals 10 meq PO DAILY nebivolol 10 mg tablet 10 mg PO DAILY prednisone 10 mg tablet 10 mg PO DAILY simvastatin 40 mg tablet 40 mg PO DAILY furosemide 20 mg tablet 20 mg PO DAILY lisinopril 20 mg tablet 20 mg PO DAILY omega-3 fatty acids Capsule 1,200 mg PO BID loratadine [Claritin] 10 mg tablet 10 mg PO DAILY multivitamin Tablet 1 tab PO DAILY hydrocodone-acetaminophen 5-325 mg tablet 1 tab PO DAILY PRN (Reason: pain) Qty: 30 0RF naloxone [Narcan] 4 mg/actuation spray,non-aerosol 1 spray intranasal Q2M PRN (Reason: opioid overdose) Qty: 2 1RF Rx Instructions: spray 1 dose into ONE nostril; alternate nostrils w each dose until help arrives doxycycline hyclate 100 mg capsule 100 mg PO BID gabapentin 300 mg capsule 300 mg PO DAILY Print Language: Occitan Instructions: Knee Pain (ED) Additional Instructions: Call the office of your primary care doctor to arrange for follow-up within the above-stated timeframe. Your ED visit was focused on your acute issue and does not replace primary care. You should review your labs, imaging, and diagnoses from this ED visit with your primary care physician. There may be non-emergent/ incidental findings that need further evaluation. You should review your vital signs including blood pressure with your PCP. If you were prescribed medications you should discuss possible side-effects and drug interactions with your pharmacist. Call 911 or go to the nearest Emergency Department if you develop any new or worsening symptoms. Return to the ED with redness, warmth, increasing pain, fever. Wear Mauricio wrap during the day for extra support. Follow-up with orthopedics. Referrals: KOMAL SCHAFFER [Primary Care Provider] - 1 week Discharge Date/Time: 02/26/24 13:03
== END 2024-02-26 13:03 | disposition home or self-care (01) ==
PROVIDERS: Emergency Provider Student in an Organized Health Care Education/Training Program; PCP Internal Medicine
DX: M25.462 Effusion, left knee (principal); M25.562 Pain in left knee; E66.01 Morbid (severe) obesity due to excess calories; Z68.42 Body mass index [BMI] 45.0-49.9, adult; X50.9XXA Other and unspecified overexertion or strenuous movements or postures, initial encounter
CPT/HCPCS: 73562; 99283

== ENCOUNTER 2024-03-06 06:45 | Outpatient (OUT) | payer MEDICARE, SELFPAY ==
--- NOTE | 2024-03-06 06:47 | MR_ITS ---
[address] [address] Patient Name: TAURUS GARCIA MRN: [id number] date: 1945 Sex: M Assigned Patient Location: MRI Current Patient Location: Accession/Order Number: [id number] Exam Date: 03/06/2024 07:00 Report Date: 03/07/2024 04:30 At the request of: PRIYA GAO Procedure: MR knee LT wo con EXAMINATION: MR knee LT wo con HISTORY: left knee pain COMPARISON: No relevant comparison available. TECHNIQUE: A complete multi-planar MRI was performed. FINDINGS: MEDIAL COMPARTMENT MEDIAL MENISCUS: Mostly extruded from the joint space with increased T2 signal throughout suggestive of intrasubstance degeneration. No convincing tear. CARTILAGE: Moderate thinning; no focal tear. BONES: No marrow pathology, fracture, or significant arthropathy. MCL AND MEDIAL CAPSULE: Grade I sprain of the medial collateral ligament. LATERAL COMPARTMENT LATERAL MENISCUS: Undersurface tear of posterior junction and horn. CARTILAGE: Moderate thinning; no focal tear. BONES: No marrow pathology, fracture, or significant arthropathy. LCL/POSTEROLAT COMPLEX: Normal lateral collateral ligament, fascicles, lateral capsule and ligaments. ANTERIOR COMPARTMENT PATELLA: No marrow pathology, fracture, or significant arthropathy. CARTILAGE: Moderate thinning; no focal tear. TENDONS: Prominent degenerative enthesophyte projecting cephalad from the patella. EFFUSION: Small joint effusion. ACL: Normal appearing ligament. PCL: Normal appearing ligament. MENISCOFEMORAL: Normal meniscofemoral ligaments. OTHER: Small amount of free fluid within the prepatellar bursa. MR/MR knee LT wo con IMPRESSION: 1. Examination slightly limited by patient body habitus. 2. Undersurface tear of the posterior horn of the lateral meniscus. 3. Prominent intrasubstance degeneration of the medial meniscus and extrusion from the joint space. 4. Moderate cartilage thinning throughout the knee. No appreciable tear or focal defect. 5. Small joint effusion and mild-moderate prepatellar bursitis. Electronically authenticated by: PRIYA RODRÍGUEZ Date: 03/07/2024 04:30
--- OUTSIDE RECORDS SUMMARY | 2024-03-06 06:51 | XMS_ITS | CCD ---
Author Organization [facility] CliniSymd Care Team Providers Care Pawn Broker Name Role Phone OLIVIA HALL Unavailable Unavailable NO FAMILY DOCTOR, NO FAMILY DOCTOR Unavailable Unavailable BALTAZAR GOMES Unavailable Unavailable NO FAMILY DOCTOR, NO FAMILY DOCTOR Unavailable Unavailable KOMAL NGUYEN Primary Care Physician [phone] AUTUMN WATTS, DR YOKO Hair Consulting Unavailzuly RIZVI JR, DR YOKO Hair Admitting Unavailabl e SARBJIT, DR SAUCEDA Primary Care Unavailable AUTUMN WATTS, DR YOKO Hair Attending Unavailzuly RIZVI JR, DR YOKO Hair Admitting Unavailabl magdalena NGUYEN, DR SAUCEDA Primary Care Unavailable AUTUMN WATTS, DR YOKO Hair Attending Unavailzuly RIZVI JR, DR YOKO Hair Consulting Unavailzuly RIZVI JR, DR YOKO Hair Admitting Unavailabl e SARBJIT, DR SAUCEDA Primary Care Unavailable AUTUMN WATTS, DR YOKO Hair Attending Unavailzuly e MEGHAN RAMIREZ Consulting Unavailable JOSELINE PARKER Consulting Unavailable SARBJIT, DR SAUCEDA Consulting Unavailable SARBJIT, DR SAUCEDA Primary Care Unavailable SARBJIT, DR SAUCEDA Admitting Unavailable SARBJIT, DR SAUCEDA Attending Unavailable ASHKAN BOCANEGRA Admitting Unavailable AAMIR, DR JORDAN Gonzalez Consulting Unavailable SARBJIT, DR SAUCEDA Primary Care Unavailable ASHKAN BOCANEGRA Attending Unavailable DALJIT, ASHKAN Consulting Unavailable AUTUMN WATTS, DR YOKO Hair Admitting Unavailzuly RIZVI JR, DR YOKO Hair Attending Unavailabl e AAMIR, DR JORDAN Gonzalez Consulting Unavailable SARBJIT, DR SAUCEDA Primary Care Unavailable AUTUMN WATTS, DR YOKO Hair Consulting Unavailzuly e SARBJIT, DR SAUCEDA Primary Care Unavailable MEGHAN HINDS Admitting Unavailable MEGHAN HINDS Attending Unavailable MEGHAN HINDS Consulting Unavailable Komal Nguyen II Primary Care Provider [phone] Komal Nguyen II Primary Care Provider GEOVANY Nguyen Primary Care Provider MD Ivan Barnhart Attending Provider [phone] GEOVANY Nguyen Primary Care Provider [phone] MD Ivan Barnhart Attending Provider Rizvi, Yoko Hair Attending Unavailable Rizvi, Yoko L Referring Unavailable [...] ADDISON Attending Unavailable HARVEY, ADDISON Admitting Unavailable DIAN, KIM K Referring Unavailable LIAN PHILIP Consulting Unavailable GEOVANY Nguyen Primary Care Provider MD Ivan Barnhart Attending Provider MD Ivan Barnhart Attending Provider MD Jarret Garza Admit Provider Pauline Canales Other Provider Unavailable DO Tonia Rice Other Provider MD Wilton Lockhart Other Provider DO Stanley Saunders Other Provider Aime ANP-BC Sabine Other Provider DO Jamel Packer Other Provider ZACH Mosqueda Other Provider ANAMARIA Henning-Daniella Rascon Other Provider ZACH Coffey-GO CART MECHANIC-C Mookie Nichols Other Provider MD Silvestre Grover Other Provider ZACH Armstrong Other Provider MD Lexy Chappell Other Provider MD Stanley Burt Other Provider MD oCra Rawls Other Provider DO Colten Xavier Other Provider [phone] MD Blank Gross Other Provider MD Eriberto Yang Other Provider MD Jamel Noe Other Provider DO Dejuan Tuttle Other Provider MD Chau Lara Attending Provider [phone] Nguyen II, Dr. Komal [facility] Solange vailable Nguyen II, [facility] Nguyen II, Dr. Komal [facility] Nguyen II, Dr. Komal Mckeon [facility] Solange vailable Rizvi, Ms. Melonie Hanley Attending Unavai lable Rizvi, Ms. Melonie Hanley Referring Unavai lable iKko, Dr. Baltazar Laws Referring Unava ilable Nguyen II, Dr. Komal [facility] Kiko, Dr. Baltazar Laws Attending Unava ilable Nguyen[facility] MD Silvestre Grover Admit Provider MD Silvestre Grover Attending Provider HEATHER Potter Other Provider Unavailable HEATHER Mendoza Other Provider Unavailable HEATHER Lo Other Provider Unavailable HEATHER Renner Other Provider Unavailable HEATHER Justin Other Provider Unavailable HEATHER Leone Other Provider Unavailable MD Kevin Leo Other Provider ZACH Leon Other Provider DO Meri Blanco Other Provider [phone] MD Ubaldo Calvo Other Provider DO Mateo Horne Other Provider MD Tyson Cheema Other Provider MD Marsha Fritz Other [...] MD Dudley Leon Other Provider MD Markus oJhnson Other Provider DO Sofia Martinez Other Provider DO Zia Duncan Other Provider DO Rodolfo Temple Other Provider ZACH Sharma Other Provider DO Dru Reveles Other Provider MD Jarret Garza Other Provider ZACH Rizvi Other Provider ZACH Shepherd Other Provider MD Suraj Razo Other Provider MD Komal Albright Other Provider ZACH Gamez Other Provider Inga, HEATHER Peña Other Provider Unavailable Komal Nguyen MD Primary Care Provider Komal Nguyen MD Primary Care Provider [phone] Komal Nguyen MD Unavailable Ivan Barnhart Attending Unavailable KOMAL NGUYEN Primary Care Unavailable BarnhartIvan Admitting Unavailable KOMAL NGUYEN Primary Care Unavailable Ivan Barnhart Admitting Unavailable Ivan Barnhart Attending Unavailable Ivan Barnhart Attending Unavailable KOMAL NGUYEN Primary Care Unavailable BarnhartIvan Admitting Unavailable Ivan Barnhart Attending Unavailable KOMAL NGUYEN Primary Care Unavailable Barnhart, Ivan Hickman Admitting Unavailable KOMAL NGUYEN Primary Care Unavailable Barnhart, Ivan Hickman Admitting Unavailable Obey, Ivan Hickman Attending Unavailable Ivan Barnhart Attending Unavailable KOMAL NGUYEN Primary Care Unavailable Ivan Barnhart Admitting Unavailable Ivan Barnhart Attending Unavailable KOMAL NGUYEN Primary Care Unavailable Ivan Barnhart Admitting Unavailable BALTAZAR HOOVER Attending Unavailable KOMAL NGUYEN Primary Care Unavailable BALTAZAR HOOVER Referring Unavailable KOMAL NGUYEN Primary Care Unavailable Zamzam BRIDGES, Jadyn Hagen Attending Unavailable SarbjitGEOVANY Komal Primary Care Provider MD Eriberto Rizvi Emergency Provider Komal Nguyen Primary Care Unavailable Ivan Barnhart Admitting Unavailable Ivan Barnhart Attending Unavailable Komal Nguyen Primary Care Unavailable Ivan Barnhart Attending Unavailable Ivan Barnhart Admitting Unavailable Chau Lara Attending Unavailable Komal Nguyen Primary Care Unavailable Jarret Garza Admitting Unavailable Pauline Canales Consulting Unavailable Tonia Rice Consulting Unavailable Wilton Lockhart Consulting Unavailable Stanley Saunders Consulting Unavailab Sabine Orozco Consulting Unavailable Jamel Packer Consulting Unavailable Nikole Mosqueda Consulting Unavailable Rubia Henning Consulting Unavailable Mookie Coffey Consulting Unavailable Silvestre Grover Consulting Unavailable Donita Armstrong Consulting Unavailable Lexy Chappell Consulting Unavailable Stanley Burt Consulting Unavaila Cora Roland Consulting Unavailable Colten Xavier Consulting UnavailBlank Kahn Consulting Unavailable Eriberto Yang Consulting Unavailable Jamel Noe Consulting Unavailable Dejuan Tuttle Consulting Unavailable Komal Nguyen Primary Care Unavailable Silvestre Grover Attending Unavailable Libby Potter Consulting Unavailable Silvestre Grover Admitting Unavailable Melva Mendoza Consulting Unavailable Cassi Lo [...] Cabrera Consulting Unavailable Dudley Leon Consulting Unavailable Markus Johnson Consulting Unavailable Sofia Martinez Consulting Unavailable Zia Duncan Consulting Unavailable MiniRodolfo snow Consulting Unavailable ObSusanne cadet Consulting Unavailable Dru Reveles Consulting Unavailable DaromaJarret friedman Consulting Unavailable Yuki Rizvi Consulting Unavailable Queenie Shepherd Consulting Unavailable Suraj Razo Consulting Unavailable Komal Albright Consulting Unavailable Angelia Gamez Consulting Unavailable Mariana Xiong Consulting Unavailable Eriberto Rizvi Attending Unavailable Eriberto Rizvi Admitting Unavailable Komal Nguyen Primary Care Unavailable REAL TUTTLE Attending Unavailable DARINEL SMITH Attending Unavailable RHEA CHRISTOPHER Referring Unavailable ANDERSON MCKINNON Attending Unavailable STANLEY SAUNDERS Referring Unavailable ALEM SAMPSON Attending Unavailable RHEA CHRISTOPHER Referring Unavailable ANDERSON MCKINNON Attending Unavailable RHEA CHRISTOPHER Referring Unavailable ANDERSON MCKINNON Attending Unavailable RHEA CHRISTOPHER Referring Unavailable ANDERSON MCKINNON Attending Unavailable STANLEY SAUNDERS Referring Unavailable ALEM SAMPSON Attending Unavailable STANLEY SAUNDERS Referring Unavailable KOMAL NGUYEN Attending Unavailable KOMAL NGUYEN Referring Unavailable ALEM SAMPSON Attending Unavailable STANLEY SAUNDERS Referring Unavailable ESTEBAN, ALEM Attending Unavailable STANLEY SAUNDERS Referring Unavailable ESTEBAN, ALEM Attending Unavailable STANLEY SAUNDERS Referring Unavailable ESTEBAN, ALEM Attending Unavailable STANLEY SAUNDERS Referring Unavailable KOMAL NGUYEN Attending Unavailable ESTEBAN, ALEM Attending Unavailable STANLEY SAUNDERS Referring Unavailable ESTEBAN, ALEM Attending Unavailable STANLEY SAUNDERS Referring Unavailable REAL TUTTLE Attending Unavailable AIDE FERREIRA Attending Unavailable AIDE FERREIRA Referring Unavailable ALEM SAMPSON Attending Unavailable STANLEY SAUNDERS Referring Unavailable KOMAL NGUYEN Attending Unavailable KOMAL NGUYEN Attending Unavailable STANLEY SAUNDERS Attending Unavailable ASHKAN BOCANEGRA Attending Unavailable REAL TUTTLE Attending Unavailable MOOKIE COFFEY Attending Unavailable DARINEL SMITH Attending Unavailable Allergies Allergy Classification Reported Allergen(s) Allergy Type Date of Onset Reaction(s) Facility (1 source) No Known Medication Allergies; Translations: [No Known Medication Allergies] Propensity to adverse reactions (disorder) [facility] Repository Medications Current Medications Medication Drug Class(es) Dates Sig (Normalized) Sig (Original) Acetaminophen (1 source) Start: 10-15-2022 acetaminophen (TYLENOL) tablet 650 mg Aller-itin (3 sources) Start: 02-17-2022 take 1 tablet by mouth once daily Aller-itin Aller-itin, 1 tab, Oral, Daily, allergies Start Date: 02/17/22 Status: Ordered amiodarone hydrochloride 200 mg oral tablet (13 sources) Antiarrhythmic Start: 05-19-2023 End: 10-05-2023 take 200 mg by mouth once daily in the morning Amiodarone Active 200 MG PO Every morning June 10, 2023 10:37am apixaban 5 mg oral tablet (20 sources) Factor Xa Inhibitor Start: 05-10-2023 End: 06-09-2023 take 1 tablet by mouth every twelve hours Apixaban (Eliquis) 5 mg Tablet Active 5 MG PO Q12H June 09, 2023 12:00am Start: 06-08-2019 take [...] tablet 0 07/03/2023 Active Start: 12-15-2018 End: 05-21-2023 take 1 tablet by mouth every eight hours Baclofen Discontinued 1 TAB PO Q8H December 15, 2018 12:00am May 21, 2023 12:22pm Start: 12-15-2018 End: 05-06-2022 baclofen (Lioresal) 10 mg ta blet TAKE 1 TABLET 3 TIMES DAILY NEEDED FOR MUSCLE SPASM. 0 02/27/2020 Active Comment on above: Take 10 mg by mouth. cephalexin 500 mg oral capsule (9 sources) Cephalosporin Antibacterial Start: 2 take 1 capsule by mouth every twelve hours Keflex 500 mg Cap 500 mg = 1 cap(s), Oral, q12hr, # 14 cap(s), Refills(s) 0, Pharmacy: [id number], 172, cm, 03/29/22 11:26:00 EDT, Height/Length Dosing, 150.9, kg, 03/29/22 11:26:00 EDT, Weight Dosing Start Date: 03/29/22 Status: Ordered Start: 03-03-2022 End: 03-08-2022 take 1 capsule by mouth every twelve hours Keflex 500 mg Cap 500 mg = 1 cap(s), Oral, q12hr, X 5 day(s), # 10 cap(s), Refills(s) 0, Pharmacy: [id number], 172, cm, 02/18/22 6:45:00 EDT, Height/Length [...] / vitamin e 2 unt oral capsule (7 sources) Start: 12-27-2017 take 1 capsule by mouth twice daily [facility]-3 Fatty Acids-Fish Oil (Fish Oil) 360-1,200 mg [...] (20 sources) Loop Diuretic Start: 05-18-2021 take 20 mg by mouth once daily Furosemide Active 20 MG PO Daily May 10, 2023 12:00am hydrALAZINE hydrochloride 50 mg oral tablet (20 sources) Arteriolar Vasodilator Start: 12-07-2021 hydrALAZINE 50 mg Start Date: 12/07/21 Status: Ordered Start: 12-27-2017 End: 05-06-2022 take 1 tablet by mouth twice daily at mealtime hydrALAZINE (Apresoline) 50 MG tablet Indications: Chronic cerebral ischemia TAKE 1 TABLET BY MOUTH TWICE DAILY WITH FOOD 180 tablet 3 02/20/2023 Active Start: 12-27-2017 take 100 mg by mouth twice sayda ly Hydralazine Active 100 MG PO Twice daily [...] take 1 tablet by mouth once daily Triamterene-Hydrochlorothiazid (Maxzide- 25mg) 37.5-25 mg tablet Discontinued 1 TAB PO Daily December 27, 2017 12:00am June 09, 2023 9:05am take 1 tablet by gloria th in the morning triamterene-hydrochlorothiazide (Maxzide -25) 37.5-25 MG tablet Take 1 tablet by mouth in the morning. 0 Active Comment on above: Take by mouth once d aily. lactobacillus rhamnosus gg [id number] unt oral capsule (1 source) Start: 10-17-19 23 lactobacillus (CULTURELLE) capsule 1 capsule lisinopril 20 mg oral tablet (20 sources) Angiotensin Converting Enzyme Inhibitor Start: 03-04-20 17 take 20 mg by mouth once daily Lisinopril Active 20 MG PO Daily December 27, 2017 12:00am Comment on above: Take by mouth once [...] day with food Oral 0 06/30/2009 Active Flpqjwza-Rim-Bo-Lycopen- Lutein (Adults 50 Plus) 0.4-300-250 mg-mcg-mcg Tablet (7 sources) Start: 12-27-2017 take 1 tablet by mouth once daily Kciidknv-Viv-Ao-Lycopen- Lutein (Adults 50 Plus) 0.4-300-250 mg-mcg-mcg Tablet Active 1 TAB PO Daily December 26, 2017 11:00pm Start: 12-27-2017 take 1 tablet by gloria th once daily Pirnapet-Qrm-Vq-Lycopen-Lutein (Adults 5 0 Plus) 0.4-300-250 mg-mcg-mcg Tablet Active 1 TAB PO Daily December 27, 2017 12:00am multivit-min/ferrous fumarate (MULTI VITAMIN ORAL) (1 source) take 1 tablet by mouth once daily multivit-min/ferrous fumarate (MULTI VITAMIN ORAL) Take 1 tablet by mouth once daily. 0 Active nebivolol 10 mg oral tablet (20 sources) Start: 2021 take 10 mg by mouth once daily Nebivolol Active 10 MG PO Daily May 10, 2023 12:00am Comment on above: Take 10 mg by mouth. nystatin 100 unt/mg topical powder (9 sources) Polyene Antifungal Start: 2022 nystatin (Mycostatin) 137712 UNIT/GM powder APPLY TO THE AFFECTED AREA(S) THREE TIMES DAILY FOR 30 DAYS 0 06/09/2023 Active Start: 06-09-2023 Nystatin (Nyst op) 100,000 unit/gram Powder Active 1 APPLIC TOPICAL Three times daily 09 19June 09, 2023 12:00am omega 4-usm-jnl-fish oil 360 mg-108 mg- 180 mg-1,200 mg capsule (1 source) omega 3-dha-epa- fish oil 360 mg-108 mg- 180 mg-1,200 mg capsule TAKE DIRECTED. 0 Active [facility]-3 Fatty Acids (FISH OIL) 1200 MG CAPS (1 source) Start: 06-08-2022 take 1 capsule by mouth at bedtime Riverview-3 Fatty Acids (FISH OIL) 1200 MG CAPS Take 1,200 mg by mouth in the morning and at bedtime 0 06/08/2022 Active ondansetron (ZOFRAN-ODT) disintegrating tablet 4 mg (1 source) Start: 10-15-2022 ondansetron (ZOFRAN-ODT) disintegrating tablet 4 mg microencapsulated potassium chloride 10 meq extended release oral tablet (20 sources) Start: 05-10-2023 End: 10-04-2024 take 1 tablet by mouth in the morning potassium chloride CR (Klor-Con M10) 10 MEQ ER tablet Indications: Osteoarthritis of spine with radiculopathy, cervical region Take 1 tablet (10 mEq) by mouth in the morning and 1 tablet (10 mEq) before bedtime. Take with food.. 180 tablet 3 10/05/2023 10/04/2024 Active Start: 10-18-2022 End: 10-18-2022 potassium chloride (KLOR-CON [...] 12/07/21 Status: Ordered take 1 tablet by [facility] once daily potassium chloride CR 10 mEq ER tablet Take 1 tablet (10 mEq) by mouth once daily. Emergency refill 0 Active Comment on above: Take 10 mEq by mouth . predniSONE 10 mg oral tablet (20 sources) Start: 02-12-2024 take 60 mg by mouth once daily at mealtime Prednisone Active 60 MG PO Daily February 12, 2024 12:00am administer with food or milk Start: 12-27-2017 End: 12-27-2017 Prednisone Discontinued TABL ET December 27, 2017 12:00am December 27, 2017 5:01pm Start: 12-27-2017 End: 06-09-2023 take 10 mg [...] once daily. 0 09/20/2023 Discontinued (Duplicate order) simvastatin 40 mg oral tablet (20 sources) HMG-CoA Reductase Inhibitor Start: 03-04-2017 take 40 mg by mouth at bedtime Simvastatin Active 40 MG PO Bedtime December 27, 2017 12:00am Comment on above: Take by mouth once d aily. Completed/Discontinued Medications Medication Drug Class(es) Dates Sig (Normalized) Sig (Original) Albuterol (7 sources) beta2-Adrenergic Agonist Start: 12-15-2018 End: 05-10-2023 [...] PUFF INHALATION Q4H December 15, 2018 12:00am amLODIPine 5 mg oral tablet (11 sources) Dihydropyridine Calcium Channel Ha Start: 12-27-2017 End: 09-20-2023 take 5 mg by mouth once daily Amlodipine Discontinued 5 MG PO Daily December 27, 2017 12:00am May 10, 2023 11:59pm aspirin 81 mg delayed release oral tablet (20 sources) Platelet Aggregation Inhibitor, Nonsteroidal Anti-inflammatory Drug [...] procedure, # 2 tab(s), Refills(s) 0, Pharmacy: [id number] Start Date: 12/07/21 Status: Ordered gabapentin 300 mg oral capsule (20 sources) Anti-epileptic Agent Start: 07-05-20 End: 10-04-19 take 1 capsule by mouth at bedtime gabapentin (Neurontin) 300 MG capsule Indications: Type 2 diabetes mellitus with diabetic neuropathy, without long-term current use of insulin ([facility]) Take 1 capsule (300 mg) by mouth at bedtime. 30 capsule 5 06/22/2023 10/05/2023 Discontinued (Reorder) Start: 07-05-2019 take 1 capsule by [facility] twice daily gabapentin (NEURONTIN) 300 mg capsule [...] CLEANUP) metoprolol tartrate 25 mg oral tablet (9 sources) beta-Adrenergic Ha Start: End: 019 take 25 mg by mouth twice daily [...] aily. naproxen sodium 220 mg oral tablet (8 sources) Nonsteroidal Anti-inflammatory Drug Start: End: 019 take 2 tablets by mouth once daily Naproxen Sodium (Aleve) 220 mg Tablet Discontinued 2 TAB PO Daily December 27, 2017 12:00am December 18, 2018 12:27pm End: 05-06-2022 NAPROXEN ORAL Take by mouth. 0 05/06/2022 Discontinued (Course of therapy completed) Comment on above: Take by mouth. [facility]-3 Fatty Acids, FISH OIL, 360-1,200 mg cap (2 sources) take 1 capsule by mouth twice daily [facility]-3 Fatty Acids, FISH OIL, 360-1,200 mg cap [...] q12hr, # 30 tab(s), Refills(s) 0, Pharmacy: [id number] Start Date: 02/01/22 Status: Ordered Comment on above: Take 100 mg by mouth twice daily as needed. polyethylene glycol [id number] [id number] mg powder for oral solution (1 source) Osmotic Laxative Start: 3 17 g, Oral, DAILY PRN, Starting on 10/15/22 at 1920, Until Discontinued, Constipation First line therapy for constipation pyridostigmine bromide 60 mg oral tablet (20 sources) Start: 7 End: 3 take 1 tablet by mouth four times daily Pyridostigmine Golf Discontinued 1 TAB PO Four times daily December 27, 2017 12:00am June 09, 2023 9:05am Start: 04-05-2017 pyridostigmine (MESTINON) 60 mg tablet Take 100 mg by mouth four times daily. 0 04/05/2017 Active Comment on above: Take 100 mg by mouth four times daily. 1000 ml sodium chloride 9 mg/ml injection [...] mg / trimethoprim 160 mg oral tablet (7 sources) Dihydrofolate Reductase Inhibitor Antibacterial, Sulfonamide Antimicrobial [...] Onset: 3 05-18-2023 Chronic Chronic kidney disease (5 sources) Chronic kidney disease stage 3; Translations: [...] symptoms] Onset: 2 Chronic Malaise and fatigue (5 sources) Malaise and fatigue; Translations: [Other malaise] Onset: 3 Resolved: 3 Episodic Neoplasms of unspecified nature or uncertain behavior (3 sources) Neoplasm of unspecified behavior of bladder; Translations: [NEOPLASM UNS BEHAVIOR OF BLADDER] Onset: 2 Episodic Osteoarthritis (7 sources) Osteoarthritis of joint of left elbow; Translations: [Primary osteoarthritis, left elbow] Onset: 3 12-27-2022 Chronic Other aftercare (3 sources) Other detention (current) drug therapy; Translations: [OTH 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 CURRENT DRUG THERAPY] Onset: 2 Episodic Other aftercare (1 source) care home (current) use of anticoagulants; Translations: [GROUP HOME CURRNT USE ANTICOAGULANTS] Onset: 2 Episodic Other aftercare (2 sources) Long-term current use of systemic steroid; Translations: [care home (current) use of systemic steroids] Onset: 3 Episodic Other aftercare (2 sources) Taking high risk medication; Translations: [Other oysterman (current) drug therapy] Onset: 4 09-20-2023 Episodic [...] Chronic Other ear and sense organ disorders (7 sources) Hearing loss; Translations: [Unspecified hearing loss, unspecified ear] 12-27-2017 Chronic Other gastrointestinal disorders (2 sources) Oropharyngeal dysphagia; Translations: [Dysphagia, oropharyngeal phase] 05-22-2023 [...] Translations: [Dyspnea, unspecified] Onset: 8 Episodic Other lower respiratory disease (14 sources) Dyspnea on exertion; Translations: [Other forms of dyspnea] Onset: 3 12-27-2017 Episodic Other nervous system disorders (20 sources) Myasthenia gravis; Translations: [Myasthenia gravis without (acute) exacerbation] Onset: 3 12-07-2021 Chronic Other nervous system disorders (9 sources) 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 Other nervous system disorders (5 sources) Myasthenic crisis; Translations: [Myasthenia gravis with (acute) exacerbation] 05-11-2023 Chronic Other nervous system disorders (3 sources) Myasthenia gravis with exacerbation; Translations: [Myasthenia [...] 3 12-27-2022 Chronic Other nervous system disorders (2 sources) Myasthenia gravis without exacerbation; Translations: [Myasthenia gravis without (acute) exacerbation] 10-05-2023 Chronic Other nervous system disorders (1 source) Myasthenia gravis with (acute) exacerbation; Translations: [Myasthenia gravis with (acute) exacerbation] Onset: 3 Chronic Other nutritional; endocrine; and metabolic disorders (9 sources) Obesity 12-07-2021 Chronic Other nutritional; endocrine; and metabolic disorders (9 sources) Body mass index 40+ - severely [...] Translations: [Body mass index (BMI) 45.0-49.9, adult ([facility])] Onset: 3 Chronic Other nutritional; endocrine; and metabolic disorders (1 source) Body mass index (BMI) 50.0-59.9, adult; Translations: [Body mass index [BMI] 50.0-59.9, adult] Onset: 3 Chronic Other screening for suspected conditions (not mental disorders or infectious disease) (15 sources) Patient encounter status; Translations: [Encounter for screening for other disorder] Onset: 3 Resolved: 3 Episodic Other upper respiratory disease (7 sources) Allergic rhinitis; Translations: [Other allergic rhinitis] Onset: 3 12-27-2022 Chronic Peripheral and visceral atherosclerosis (2 sources) Intermittent claudication of bilateral lower limbs co-occurrent and due to atherosclerosis; Translations: [Atherosclerosis of [place] arteries of extremities with intermittent claudication, bilateral legs] 10-05-2023 Chronic Pulmonary heart disease (3 sources) Cor pulmonale; Translations: [Chronic pulmonary heart disease, unspecified] Onset: 3 06-05-2023 Chronic Residual codes; unclassified (9 sources) Obstructive sleep [...] Date Documented Da te Episodic/Chronic Administrative/social admission (7 sources) Other reduced mobility; Translations: [Impaired mobility and activities of daily living] Onset: 05-10-2023 05-16-2023 Episodic Bacterial infection; unspecified site (1 source) Enterococcus as the cause of diseases classified elsewhere; Translations: [Enterococcus as the cause of diseases classified elsewhere] Onset: 05-10-2023 Episodic Fluid and electrolyte disorders (18 sources) [...] 05-21-2023 06-10-2023 Episodic Other lower respiratory disease (3 sources) [...] and sense organs] Onset: 03-17-2023 03-17-2023 Episodic Pulmonary heart disease (20 sources) Pulmonary embolism; Translations: [Personal history of pulmonary embolism] Onset: 01-20-2022 12-07-2021 Episodic Residual codes; unclassified (4 sources) Localized edema; Translations: [LOCALIZED EDEMA] Onset: 02-09-2021 Episodic Residual codes; unclassified (3 sources) Edema; Translations: [Edema] Onset: 06-05-2023 06-05-2023 Episodic Residual codes; unclassified (1 source) Other specified health status; Translations: [Other specified health status] Onset: 05-10-2023 Episodic Respiratory failure; insufficiency; arrest (adult) (6 sources) Acute respiratory failure; Translations: [Acute respiratory failure with hypoxia] Onset: 05-10-2023 05-11-2023 Episodic Spondylosis; intervertebral disc disorders; other back problems (14 sources) Cervical radiculopathy; Translations: [Radiculopathy, cervical region] Onset: 12-27-2022 12-27-2022 Episodic Unclassified (2 sources) Never smoked tobacco; Translations: [Never a smoker] Unclassified (1 source) Onset: 09-20-2023 09-20-2023 Urinary tract infections (17 sources) Urinary tract infection caused by Enterococcus; Translations: [Urinary tract infection, site not specified] Onset: 05-10-2023 02-23-2018 Episodic Results Test Name Value Interpretation Reference Range Facility Alanine aminotransferase [En zymatic activity/volume] in Serum or PlasmaOrdered By: Eriberto Rizvi on 02-12-2024 ALT [Catalytic activity/Vol] 22 U/L Normal 7-52 [facility] Comment on above: Performed By: #### B MP #### [address] Albumin [Mass/volume] in Ser um or Plasma by Bromocresol green (BCG) dye binding methoOrdered By: Eriberto Rizvi on 02-12-2024 Albumin BCG dye [Mass/Vol] 3.6 g/dL 3.5-5.7 [facility] Alkaline phosphatase [Enzyma tic activity/volume] in Serum or PlasmaOrdered By: Eriberto Rizvi on 02-12-2024 ALP [Catalytic activity/Vol] 62 U/L Normal 34-104 [facility] Comment on above: Performed By: #### B MP #### [address] Aspartate aminotransferase [ Enzymatic activity/volume] in Serum or PlasmaOrdered By: Eriberto Rizvi on 02-12-2024 AST [Catalytic activity/Vol] 20 U/L Normal 13-39 [facility] Comment on above: Performed By: #### B MP #### [address] Automated basophil %Ordered By: Eriberto Rizvi on 02-12-2024 Basophils/100 WBC (Bld) 0.6 % Normal . [facility] Comment on above: Performed By: #### C UBLD, CBC ####[facility] [place] [address] Automated basophil countOrde red By: Eriberto Rizvi on 02-12-2024 Basophils (Bld) [#/Vol] 0.1 10*3/uL Normal 0.0-0.2 [facility] Comment on above: Result Comment: PERF ORMED BY: [place] [address] PATHOLOGIST MANAGER APPOINTMENT GINA CARDONA M.D. Performed By: #### C UBLD, CBC ####[address] Automated blood monocyte cou ntOrdered By: Eriberto Rizvi on 02-12-2024 Monocytes (Bld) [#/Vol] 0.5 10*3/uL Normal 0.0-0.8 [facility] Comment on above: Performed By: #### C UBLD, CBC ####[address] Automated eosinophil %Ordere d By: Eriberto Rizvi on 02-12-2024 Eosinophils/100 WBC (Bld) 0.0 % Normal . [facility] Comment on above: Performed By: #### C UBLD, CBC ####[address] Automated eosinophil countOr dered By: Eriberto Rizvi on 02-12-2024 Eosinophils (Bld) [#/Vol] 0.0 10*3/uL Normal 0.0-0.45 [facility] Comment on above: Performed By: #### C UBLD, CBC ####[address] Automated monocyte %Ordered By: Eriberto Rizvi on 02-12-2024 Monocytes/100 WBC (Bld) 5.2 % Normal . [facility] Comment on above: Performed By: #### C UBLD, CBC ####[address] Automated neutrophil %Ordere d By: Eriberto Rizvi on 02-12-2024 Neutrophils/100 WBC (Bld) 87.8 % Normal . [facility] Comment on above: Performed By: #### C UBLD, CBC ####[address] Bacteria [Presence] in Urine by AutomatedOrdered By: Eriberto Rizvi on 02-12-2024 Bacteria Auto Ql (U) None seen [HPF] None Seen [facility] Bilirubin Test strip Ql (U)O rdered By: Eriberto Rizvi on 02-12-2024 Bilirubin Ql (U) Negative Negative [facility] Bilirubin.total [Mass/volume ] in Serum or PlasmaOrdered By: Eriberto Rizvi on 02-12-2024 Bilirubin [Mass/Vol] 0.8 mg/dL Normal 0.3-1.0 [facility] Comment on above: Performed By: #### B MP #### [address] Blood Cultureon 02-12-2024 Bacteria identified Cx Nom (Bld) NO GROWTH 5 DAYS PERFORMED BY: [place] [address] PATHOLOGIST MANAGER APPOINTMENT GINA CARDONA M.D. Normal [facility] Comment on above: Performed By: #### C UBLD, CBC ####[address] Bacteria identified Cx Nom (Bld) NO GROWTH 5 DAYS PERFORMED BY: [place] [address] PATHOLOGIST MANAGER APPOINTMENT GINA CARDONA M.D. Normal [facility] Comment on above: Performed By: #### C UBLD, CBC ####[address] Calcium [Mass/volume] in Ser um or PlasmaOrdered By: Eriberto Rizvi on 02-12-2024 Calcium [Mass/Vol] 9.1 mg/dL Normal 8.6-10.3 [facility] Comment on above: Performed By: #### B MP #### [place] [address] [place] Carbon dioxide, total [Moles /volume] in Serum or PlasmaOrdered By: Eriberto Rizvi on 02-12-2024 CO2 [Moles/Vol] 30.7 mmol/L Normal 21.0-31.0 [facility] Comment on above: Performed By: #### B MP #### [place] [address] [place] Chloride [Moles/volume] in S [place] or PlasmaOrdered By: Eriberto Rizvi on 02-12-2024 Chloride [Moles/Vol] 113 mmol/L High 98-107 [facility] Comment on above: Performed By: #### B MP #### [address] Color of Urine by AutoOrdere d By: Eriberto Rizvi on 02-12-2024 Color (U) Light-yellow Normal Yellow [facility] Comment on above: Order Comment: Name Collection Type:: Voided Performed By: #### G LULS #### Point of Care testing , Complete Blood Count Auto Di ffon 02-12-2024 Mean Corpuscular HGB Conc 33.2 g/dL Normal 32.5-35.6 [facility] Comment on above: Performed By: #### C UBLD, CBC ####[address] Monocytes/100 WBC (Bld) 20.05 % High 0.00-20.00 [facility] Comment on above: Result Comment: For adults in ED, MDW > 20.0 may be associated with a higher risk of sepsis during the first 12 hrs of hospital admission Performed By: #### C UBLD, CBC ####[address] NRBC% 0.0 /100{WBC} Normal 0-0.5 [facility] Comment on above: Performed By: #### C UBLD, CBC ####[address] Comprehensive Metabolic Pane rc 02-12-2024 Albumin [Mass/Vol] 3.6 g/dL Normal 3.5-5.7 [facility] Comment on above: Performed By: #### B MP #### [address] Anion gap [Moles/Vol] 1.6 mmol/L Low 6.0-15.0 [facility] Comment on above: Performed By: #### B MP #### [address] Creatinine Clr Calc Pharmacy 64.79 Normal [facility] Comment on above: Performed By: #### B MP #### [place] [id number] [place] GFR/1.73 sq M.predicted MDRD (S/P/Bld) [Vol rate/Area] 57.657 mL/min/{1.73_m2} Normal [facility] Comment on above: Performed By: #### B MP #### [address] Creatine kinase [Enzymatic a ctivity/volume] in Serum or PlasmaOrdered By: Eriberto Rizvi on 02-12-2024 CK [Catalytic activity/Vol] 113 U/L Normal 30-223 [facility] Comment on above: Performed By: #### B MP #### [address] Creatinine [Mass/volume] in Serum or PlasmaOrdered By: Eriberto Rizvi on 02-12-2024 Creatinine [Mass/Vol] 1.26 mg/dL Normal 0.70-1.30 [facility] Comment on above: Performed By: #### B MP #### [address] Dipstick and Microscopicon 0 02-12-2024 Bacteria,Urine None Seen Normal None Seen [facility] Comment on above: Order Comment: Name Collection Type:: Voided Performed By: #### G LULS #### Point of Care testing , Bilirubin,Urine Negative Normal Negative [facility] Comment on above: Order Comment: Name Collection Type:: Voided Performed By: #### G LULS #### Point of Care testing , Glucose Ql (U) Normal Normal Normal [facility] Comment on above: Order Comment: Name Collection Type:: Voided Performed By: #### G LULS #### Point of Care testing , Hyaline Casts,Urine None Normal 0-8 [facility] Comment on above: Order Comment: Name Collection Type:: Voided Result Comment: PERF ORMED BY: [place] [address] PATHOLOGIST MANAGER APPOINTMENT GINA CARDONA M.D. Performed By: #### G LULS #### Point of Care testing , Nitrite,Urine Negative Normal Negative [facility] Comment on above: Order Comment: Name Collection Type:: Voided Performed By: #### G LULS #### Point of Care testing , Occult Blood,Urine Trace High Negative [facility] Comment on above: Order Comment: Name Collection Type:: Voided Result Comment: PERF ORMED BY: [place] [address] PATHOLOGIST MANAGER APPOINTMENT GINA CARDONA M.D. Performed By: #### G LULS #### Point of Care testing , Protein,Urine Negative Normal Negative [facility] Comment on above: Order Comment: Name Collection Type:: Voided Performed By: #### G LULS #### Point of Care testing , RBC,Urine 10-19 High 0-4 [facility] Comment on above: Order Comment: Name Collection Type:: Voided Performed By: #### G LULS #### Point of Care testing , Specificy [place],Urine 1.017 Normal 1.001-1.03 0 [facility] Comment on above: Order Comment: Name Collection Type:: Voided Performed By: #### G LULS #### Point of Care testing , Urobilinogen,Urine Normal Normal Normal [facility] Comment on above: Order Comment: Name Collection Type:: Voided Performed By: #### G LULS #### Point of Care testing , WBC,Urine 1-2 Normal 0-4 [facility] Comment on above: Order Comment: Name Collection Type:: Voided Performed By: #### G LULS #### Point of Care testing , ECG 12 lead ECGon 02-12-2024 ECG 12 lead ECG [facility] Main [place] [id number] Electrocardiograph Report Signed Patient: Taurus Garcia MR#: [id number] : 1945 Acct:[id number] Age/Sex: 78 / M ADM Date: 02/12/24 Loc: ER Room: Type: [facility] ER Attending Dr: Ordering Provider: Eriberto Rizvi MD Date of Service: 02/12/24 ECG/ECG 12 lead ECG: Weakness Copies to: Test Reason : Blood Pressure : / mmHG Vent. Rate : 051 BPM Atrial Rate : 241 BPM P-R Int : 000 ms QRS Dur : 102 ms QT Int : 458 ms P-R-T Axes : 000 025 048 degrees QTc Int : 422 ms Junctional rhythm Low voltage QRS Abnormal ECG When compared with ECG of 16-MAY-2023 08:56, Junctional rhythm has replaced Atrial fibrillation Vent. rate has decreased BY 76 BPM Nonspecific T wave abnormality no longer evident in Anterior leads Confirmed by ERIBERTO RIZVI MD ([id number]) on 02/12/2024 7:05:07 PM Referred By: Electronically Signed By:ERIBERTO RIZVI MD Transcribed By: MUS Signed By Eriberto Rizvi MD 02/12/24 1905 Normal [facility] Epithelial cells.squamous [# /area] in Urine sediment by Automated countOrdered By: Eriberto Rizvi on 02-12-2024 Epithelial cells.squamous Auto (Urine sed) [#/Area] N/A [facility] Erythrocyte Sedimentation Ra kimberlee 02-12-2024 ESR (Bld) [Velocity] 13 mm/h Normal 0-19 [facility] Comment on above: Result Comment: PERF ORMED BY: [place] [address] PATHOLOGIST MANAGER APPOINTMENT GINA CARDONA M.D. Performed By: #### B MP #### [facility] [address] Erythrocyte distribution wid th [Ratio] by Automated countOrdered By: Eriberto Rizvi on 02-12-2024 Erythrocyte distribution width (RBC) [Ratio] 17.0 % High 12.0-14.8 [facility] Comment on above: Performed By: #### C UBLD, CBC ####[facility] [id number] Erythrocyte sedimentation ra te by Photometric methodOrdered By: Eriberto Rizvi on 02-12-2024 ESR Photometric method (Bld) [Velocity] 13 mm/hr 0-19 [facility] Erythrocytes [#/area] in Uri ne sediment by Automated countOrdered By: Eriberto Rizvi on 02-12-2024 RBC Auto (Urine sed) [#/Area] 10-19 [HPF] 0-4 [facility] Erythrocytes [#/volume] in B lood by Automated countOrdered By: Eriberto Rizvi on 02-12-2024 RBC (Bld) [#/Vol] 4.58 10*6/uL Normal 3.90-5.60 [facility] Comment on above: Performed By: #### C UBLD, CBC ####[facility] [id number] Glucose [Mass/volume] in Ser um or PlasmaOrdered By: Eriberto Rizvi on 02-12-2024 Glucose [Mass/Vol] 133 mg/dL High 70-100 [facility] Comment on above: ADA recommended refe rence rangeRandom Glucose Reference Range is dependent on time and content of last meal. Glucose of more than 200 mg/dL in a nonstressed, ambulatory subject supports the diagnosis of Diabetes Mellitus. Result Comment: [place] Glucose Reference Range is dependent on time and content of last meal. Glucose of more than 200 mg/dL in a nonstressed, ambulatory subject supports the diagnosis of Diabetes Mellitus. ADA recommended reference range Performed By: #### B MP #### [facility] [address] Glucose [Mass/volume] in Uri ne by Test stripOrdered By: Eriberto Rizvi on 02-12-2024 Glucose Test strip (U) [Mass/Vol] Normal mg/dL Normal [facility] Hematocrit [Volume Fraction] of Blood by Automated countOrdered By: Eriberto Rizvi on 02-12-2024 Hematocrit (Bld) [Volume fraction] 41.3 % Normal 38.8-50.0 [facility] Comment on above: Performed By: #### C UBLD, CBC ####[facility] [address] [place] [id number] [facility] Hemoglobin Test strip Ql (U) Ordered By: Eriberto Rizvi on 02-12-2024 Hemoglobin Ql (U) Trace Negative [facility] Hemoglobin [Mass/volume] in BloodOrdered By: Eriberto Rizvi on 02-12-2024 Hemoglobin (Bld) [Mass/Vol] 13.7 g/dL Normal 13.0-17.0 [facility] Comment on above: Performed By: #### C UBLD, CBC ####[place] [id number] [place] [id number] [facility] Hyaline casts [#/area] in Ur ine sediment by Automated countOrdered By: Eriberto Rizvi on 02-12-2024 Hyaline casts Auto (Urine sed) [#/Area] None [LPF] 0-8 [facility] Ketones [Presence] in Urine by Test stripOrdered By: Eriberto Rizvi on 02-12-2024 Ketones Ql (U) Negative Normal Negative [facility] Comment on above: Order Comment: Name Collection Type:: Voided Performed By: #### G LULS #### Point of Care testing , Lactate [Moles/volume] in Se rum or PlasmaOrdered By: Eriberto Rizvi on 02-12-2024 Lactate [Moles/Vol] 1.2 mmol/L Normal 0.5-2.2 [facility] Comment on above: Result Comment: PERF ORMED BY: [facility] [address] [place] [address] PATHOLOGIST MANAGER APPOINTMENT GINA CARDONA M.D. Performed By: #### L ACTIC ####[facility] [id number] [place] [id number] [facility] Leukocyte esterase [Presence ] in Urine by Test stripOrdered By: Eriberto Rizvi on 02-12-2024 Leukocyte esterase Test strip Ql (U) Negative Normal Negative [facility] Comment on above: Order Comment: Name Collection Type:: Voided Performed By: #### G LULS #### Point of Care testing , Leukocytes [#/area] in Urine sediment by Automated countOrdered By: Eriberto Rizvi on 02-12-2024 WBC Auto (Urine sed) [#/Area] 1-2 [HPF] 0-4 [facility] Leukocytes [#/volume] correc blessing for nucleated erythrocytes in Blood by Automated counOrdered By: Eriberto Rizvi on 02-12-2024 WBC corrected for nucl RBC Auto (Bld) [#/Vol] 10.0 10*3/uL 4.1-10.5 [facility] Leukocytes [#/volume] in Blo od by Automated countOrdered By: Eriberto Rizvi on 02-12-2024 WBC (Bld) [#/Vol] 10.0 10*3/uL Normal 4.1-10.5 [facility] Comment on above: Performed By: #### C UBLD, CBC ####[address] Lymphocytes [#/volume] in Bl ood by Automated countOrdered By: Eriberto Rizvi on 02-12-2024 Lymphocytes (Bld) [#/Vol] 0.6 10*3/uL Low 1.00-4.8 [facility] Comment on above: Performed By: #### C UBLD, CBC ####[address] Lymphocytes/100 leukocytes i n Blood by Automated countOrdered By: Eriberto Rizvi on 02-12-2024 Lymphocytes/100 WBC (Bld) 6.4 % Normal . [facility] Comment on above: Performed By: #### C UBLD, CBC ####[address] MCH [Entitic mass] by Automa blessing countOrdered By: Eriberto Rizvi on 02-12-2024 MCH (RBC) [Entitic mass] 30.0 pg Normal 27.5-35.2 [facility] Comment on above: Performed By: #### C UBLD, CBC ####[address] MCHC Auto (RBC) [Mass/Vol]Or dered By: Eriberto Rizvi on 02-12-2024 MCHC (RBC) [Mass/Vol] 33.2 g/dL 32.5-35.6 [facility] MCV [Entitic volume] by Auto mated countOrdered By: Eriberto Rizvi on 02-12-2024 MCV (RBC) [Entitic vol] 90.2 fL Normal 83.5-101 [facility] Comment on above: Performed By: #### C UBLD, CBC ####[address] Monocyte distribution width [Entitic volume] in Blood by AutomatedOrdered By: Eriberto Rizvi on 02-12-2024 Monocyte distribution width Auto (Bld) [Entitic vol] 20.05 % 0.00-20.00 [facility] Comment on above: For adults in ED, MD W > 20.0 may be associated with a higher risk of sepsis during the first 12 hrs of hospital admission Neutrophils [#/volume] in Bl ood by Automated countOrdered By: Eriberto Rizvi on 02-12-2024 Neutrophils (Bld) [#/Vol] 8.8 10*3/uL High 1.8-7.7 [facility] Comment on above: Performed By: #### C UBLD, CBC ####[place] [id number] [address] Nitrite Test strip Ql (U)Ord ered By: Eriberto Rizvi on 02-12-2024 Nitrite Ql (U) Negative Negative [facility] No Panel InformationOrdered By: Eriberto Rizvi on 02-12-2024 Estimated GFR (CKD-EPI) 57.657 mL/Min [facility] Creatinine Clearance (Chem 64.79 [facility] Nucleated erythrocytes [Pres ence] in Blood by Automated countOrdered By: Eriberto Rizvi on 02-12-2024 Nucleated RBC Auto Ql (Bld) 0.0 /100{WBC} 0-0.5 [facility] Platelet mean volume [Entiti c volume] in Blood by Automated countOrdered By: Eriberto Rizvi on 02-12-2024 Platelet mean volume (Bld) [Entitic vol] 8.3 fL Normal 6.6-10.1 [facility] Comment on above: Performed By: #### C UBLD, CBC ####[facility] [place] [id number] [facility] Platelets [#/volume] in Bloo d by Automated countOrdered By: Eriberto Rizvi on 02-12-2024 Platelets (Bld) [#/Vol] 155 10*3/uL Normal 150-450 [facility] Comment on above: Performed By: #### C UBLD, CBC ####[facility] [place] [phone] [facility] Potassium [Moles/volume] in Serum or PlasmaOrdered By: Eriberto Rizvi on 02-12-2024 Potassium [Moles/Vol] 4.1 mmol/L Normal 3.5-5.1 [facility] Comment on above: Performed By: #### B MP #### [address] Protein Test strip (U) [Mass /Vol]Ordered By: Eriberto Rizvi on 02-12-2024 Protein (U) [Mass/Vol] Negative Negative [facility] Protein [Mass/volume] in Ser um or PlasmaOrdered By: Eriberto Rizvi on 02-12-2024 Protein [Mass/Vol] 6.0 g/dL Low 6.4-8.9 [facility] Comment on above: Performed By: #### B MP #### [address] Serum globulin measurement b y calculation (mass/volume)Ordered By: Eriberto Rizvi on 02-12-2024 Globulin (S) [Mass/Vol] 2.4 g/dL [facility] Comment on above: Performed By: #### B MP #### [address] Serum or plasma albumin/glob ulin mass ratioOrdered By: Eriberto Rizvi on 02-12-2024 Albumin/Globulin [Mass ratio] 1.5 {ratio} [facility] Comment on above: Performed By: #### B MP #### [address] Serum or plasma anion gap de terminationOrdered By: Eriberto Rizvi on 02-12-2024 Anion gap [Moles/Vol] -1.6000 mmol/L 6.0-15.0 [facility] Sodium [Moles/volume] in Ser um or PlasmaOrdered By: Eriberto Rizvi on 02-12-2024 Sodium [Moles/Vol] 138 mmol/L Normal 136-145 [facility] Comment on above: Performed By: #### B MP #### [address] Specific gravity Test strip (U) [Rel density]Ordered By: Eriberto Rizvi on 02-12-2024 Specific gravity (U) [Rel density] 1.017 1.001-1.03 0 [facility] Thyrotropin [Units/volume] i n Serum or PlasmaOrdered By: Eriberto Rizvi on 02-12-2024 TSH Qn 1.22 m[IU]/L Normal 0.45-5.33 [facility] Comment on above: Result Comment: PERF ORMED BY: [place] [address] PATHOLOGIST MANAGER APPOINTMENT GINA CARDONA M.D. Performed By: #### B MP #### [address] Troponin I High Sensitivityo n 02-12-2024 Troponin I High Sensitivity 7.6 pg/mL Normal 0.0-20.0 [facility] Comment on above: Result Comment: PERF ORMED BY: [place] [address] PATHOLOGIST MANAGER APPOINTMENT GINA CARDONA M.D. Performed By: #### B MP #### [place] [id number] [facility] Troponin I.cardiac [Mass/vol ume] in Serum or Plasma by Detection limit <= 0.01 ng/Ordered By: Eriberto Rizvi on 02-12-2024 Troponin I.cardiac DL <= 0.01 ng/mL [Mass/Vol] 7.6 pg/mL 0.0-20.0 [facility] Urea nitrogen [Mass/volume] in Serum or PlasmaOrdered By: Eriberto Rizvi on 02-12-2024 Urea nitrogen [Mass/Vol] 30 mg/dL High 03-14 [facility] Comment on above: Performed By: #### B MP #### [address] Urine appearanceOrdered By: Eriberto Rizvi on 02-12-2024 Appearance (U) Clear Normal Clear [facility] Comment on above: Order Comment: Name Collection Type:: Voided Performed By: #### G LURAYO #### Point of Care testing , Urobilinogen Test strip (U) [Mass/Vol]Ordered By: Eriberto Rizvi on 02-12-2024 Urobilinogen (U) [Mass/Vol] Normal mg/dL Normal [facility] XR chest 1V portableon 02-11 XR chest 1V portable [facility] Main [place] [address] [place] [address] XRay Report Signed Patient: Taurus Garcia MR#: [id number] : 1945 Acct:[id number] Age/Sex: 78 / M ADM Date: 02/12/24 Loc: ER Room: Type: [facility] ER Attending Dr: Copies to: Eriberto Rizvi MD Ordering Provider: Eriberto Rizvi MD Date of Service: 02/12/24 XR/XR chest 1V portable: Weakness Plain film chest Single view HISTORY: Weakness for 3 weeks COMPARISON: 05/15/23 FINDINGS: SUPPORT DEVICES: None POSTSURGICAL CHANGES: None HEART: Within normal limits PULMONARY DEVORA: Within normal limits MEDIASTINUM: Unremarkable LUNGS AND PLEURA: No acute lung process, pleural effusion or pneumothorax identified. Minor interstitial changes BONY STRUCTURES: Intact ADDITIONAL FINDINGS None XR/XR chest 1V portable IMPRESSION: No acute process. Impression dictated by: Aaron Mock M.D.02/12/2024 3:21 PM Dictation Location: [place] [address] Transcribed By: [facility] 02/12/24 1521 Dictated By: Aaron Mock DO 02/12/24 1518 Signed By: 02/12/24 1521 Normal [facility] pH of Urine by Test stripOrd ered By: Eriberto Rizvi on 02-12-2024 pH (U) 6.0 [pH] Normal 5.0-9.0 [facility] Comment on above: Order Comment: Name Collection Type:: Voided Performed By: #### G LULS #### Point of Care testing , XR HIP 2 OR 3 VW RIGHTon XR HIP 2 OR 3 VW RIGHT EXAMINATION: RIGH T HIP CLINICAL HISTORY: Pain. No history of trauma reported COMPARISON: None FINDINGS: 4 views are submitted. Examination limited by patient body habitus. The uomba-nc-xewn there is multilevel degenerative change visualized lower [...] Coding Summaryon 10-16-2023 Coding Summary HTMLBase 64 KevspsibJVd4nDv+PGhlYWQ+PE 8JDWTtI16ruQWxoT5uY1AELTyI StyhJLCKRWzHXgWmduEiHK4crT NjZXJu IC8+FQ0oWAXfLoofuWVjc4M2cD L0J77gtm4mLGwpbIQ2LHIjMeYt ggeev9ixtWp9ZXljXicwWqGw ERBumN52HPX9xC49Tk30yOSgxG Xml0mzoAw3JdKvGHLgSUI5tHyd KVimw1BiOKVwQ14pyLXpu2B5 DFAauBszlMCtXzWdzGJ4tJ5gKT ccrlrwl4gmfyvxRif9bq65hBSa j6Q2dVH6F4LxdsU8KDXjhQEq GivdiNGWzF2qdesbb6zbitacYt XuZVClJOa5GEn0NSXzwWirXbUx FQ88YKH7VYCngjPmA0YvICYi hEfgQlN7h2S1Wj0GH1ETGrtnY6 VNTUFSWTwvdGQ+XC33br70X9Do VzhwQuc8KRJrZFO8uIY3dL9c ERTvXIdfq1G8dNR3E9TnztBper 2ni0ehBDLkSOxrN97yxOGqo8W9 ZPWrgJT9KQHmfLlmFlUusP08 Oyc+LVCecKdni7LpXrkea3uue2 bjwRk8PetmUQOusiEbmRkwMEF3 p1HePg9gAUIzlAB4oJX1yQ5z YxLyJeE1WOvwE219IvKvkDEyKn kxS91qK8VqfGX+ZYXhMkq3BEDf uVpoOA3vR3FoVPJoqtjixXIk dMjgWI8rMAHltacxTABbmS9cFU TlK5p0DcZhQyS2PVmfV4RmOBMf fgbdBx47pS7gLxTtAbA4LUsb G5SlolH4VLCrjXQeKBtyPYM4H3 2fv9Q6VCWyZERdUJF5oQV3xA6k bGlnbjogbGVmdDsgdmVydGlj CYxvXRbdL945SFSrtVbnMqJvMJ luZyBEYXRlOiAgMDIvMjYvMjAy NDwvdGQ+OCPfRSN9kDrpIGSf wSHbZNkiCc7ljRelsYzsTN3aKP RqjyjfPTEkuG6mXXFrwJYxcAjl [id number] JCSeaUGrH5IuuD8bUnTaLOAnIB TpL7EmzLFbLPhpB775SUitVhZ1 VYLyiiVfG5OzPYSsmRkmNrA0 y5H9Wo6Jl6MunhksY9BpxFHeEp DwGygvERh0U7ApMuritHK+PC90 PDPeOI21ISu3BAL7sKuzEOix GXIaC0RtgZ5nUiYdUJXmENRjOs c+PHRhYmxlIHdpZHRoPScxMDAl LjCrjUuuLB3tXt1iERPvIPDf bItgmZVnVfBht1zaUMMfEHazAO 0jzLiwF7WcfNM4LFQxu6x4Io01 R72yW7TeyEU+UBZqmJW1dXX2 gM8vXaBjMiV9AEysR504QzWflM VlIzfcb3ajy7pmiQe8BmA3XBDt agXutYsjTII6t0DtXp14O36o IHdpZHRoPSIxNSUiIHZhbGlnbj 1uoI6cZz4+AYQewGC4vYT4hG6i WnZrYjA9FKkcO980AqMkcKXs Jwgmn9wnz5qvbRq0HcTbWECjdd RcaIbfHMF1o7ZrDu79E6EwlSbx p3AjOgd1bq84gIYzm3F1hKI4 E1TuGTFhtxwacFGgsSsgTY3fVG YerumyTOBifW1tASGwO0z5FnYb EhY8LNjsM1BatyC3MVUjjTRu IEHggGQWzC6xqoofh4wfskuuYx RvSPHiIHa9DBw7VSIgcSwtJbSc YDF1YlL7XMS2rWDfpI6zsIvs akknbE7lIaa+DBB9sJRtxYZKPX 1lOjwvdGQ+MNBpIBX7uWmzDCyv IXDreN2pQYZlI7m7OnVqLdM1 CCyaU8XxhiG3EUMscXMvBQGfjP PDjN9ytieit3chgpmsWzLgPQCv TTd2YRs4OUUrbJjoMkOxGIZ6 KgV9KCW3xNBaiW5pmTmngqlbsO 9wOyc+XicudZgkOKJ6AMd2W5Jo Dqu1JUHeeFecGQ2emQXaFFsu Ki5ogSwvvZwoRB9hKBUseruxl8 93VaEwp2cwUFEfdNCeIXuhJGY6 S43dk2V2SSVaRHFwCMM3fLD7 dF3kyYsqcnprjAZwkTpdduDrtR kyFCqbCZbaV683UQDddKawPbJh YGi7E4ZsLfv9GRMhtLhoHZ2n zZWzPUrcYg4huOkvxCmzYS7zRR Envjfsc696NlNdh5lmEQIzfFPr PBhpRSN2H50fs3Y8DWHpDCFw CKH9yCM2lK2dyJeypwynzQIicB qpceJfcEosFYodHLpwP000BKRk aVbzOiGwdRj1E6MpHps8ONJx hGkeNW7szWBnXDqtYa2nhUabwP hlZA2kVSLaedwnu198CrPau2rh MOBmjGVrAUmqSKU5O49pa9Y0 XOVhNPRgGJZ5tOU3vX1kuVhmsr ogbGVmdDsgdmVydGljYWwtYWxp G443RASvzBxzBxXhfIutswQh YZpzLHx9B6UqMkfihUG+PC90YW MoVX43pDJijQRzt9kjfLn2NzTo NIAeBXM2xOfjAWpen9IxOZCl C99ziZYfn0L2USZvdEzndESoRm HkpDA6zQ5cCRnfqqeqw8chlmhs Pmwfh1cyuz51zS64J14cTHnz XICeHDAdGRGeTLDfrHmwgo4zjA 9wIi8+KOKxuZA7eJX4tC7cJHSa HbB0EFtmE225HtTerGKfVizm v8rnj9yyeEm8PqQ9SNVbzbXvhV loDUD0q9RpPf09G17mKSqvPLVr AADyFMZdCBYrbDvdqt1jaB6k Ii8+JVNclAE4sCE7iZ0kZeXmQy I6EMhfC950NnRgcZQjHsbfH10u V6SdnIW+NVOhEyt7ITOmpTmb KM4jwMObNOshQi0vCLO9VwKvFj DkKLhoM8XiVKUpypktimfbeKK2 EYVlUUYzsX07Ps7rpAplMZHj oDBXcJ4lmmhbl4ymvqsyZnMxZD NbXQt4DYr3YZCdcCtvPfVpKTR2 FyA0VUL1kTClaT1suMwwwihk yT1cM8OjZRZzutqgNi48iH6jJv ApHuE8NSrxYwv+VEhPTUFTLCBD QSKRUSFVNEL2Z3YkDol8VZDt pUthOZ3ctPDcSZwrTs8syRzalT uuEV0pLMKyqwhzFUOxhY1kNAUh vEJblWjnWF3dWKYbitwhq335 UzWqSAX8TXOwfQTyR5TrdJ8oWk UrSHMwSMOqO4LiiCDbBCoxH603 LGbhEqA5PKGjnmXbR3RaYEJz wSnhHuL7u5H6Io1qKq5qWe3fDU B1XT24FQ54uXGyh3L1lOB2L6Vv UWDmlkqboudtaGW2OHRjWGAn iK85vRAgWGzmSe3on1X1a842AL XrOHQpuF61Ui3ajKxyPWIndYNX hI7vktyyo2cxrrouGbAsBPOd PJr5CVz2VVZiuVkhSrMaYVO7Jk C4RLS6iUSwnS2iaNvvvgoliK2t Oyc+QWFoIIEmlyW1W7AmGit7 VECmnJkqND6xeWUuPAcfIi3mhN dbqTaqGT9oNSYjcyxiBPAuhB4o CCVkwVCyuDxbHY1kCALluazs t123QbCsYRZ3ROIrzMTqX2PysX 1sQvOqCWVrXYYmR3SshLNbBLoz Z156FDdiDzR4ZXNoilOcA3Jg QSHoeQesWlA5k6S4Xr3VKWoLIM 85ZI58lGHar4C8dXF2S7QfGJSo cednwaalpUE2DFBkSIZesE01 yBHtWQboBw2wz6I6x081PRApDM LxyI77Ti0gwSwgJCOoxNXCfA6n kfisr1jpgztsQyDtFBXkXLq9 ZIz6UVPxnOybObBxHSK3OiS6TF B0kECroX3laKivszqdeO4dJzm+ J8H3X3PsCmlqzOK+SM96ATEj ZV07qXZauUFjl0fnnYb8LeDbUX AxBMM3jNkqZQhih8RtWOFcY45g iDYiv7R6GIVxuGlhzEGaIhRe oOW1sP3eAFyslpolo3cnpofkNo pth6ambl19zL38P37nLDnvXCPu VYFcFENrOFDbjZkjxy0umU5j Ii8+FMVksVV4uUG2mY6rBeVdXf H5DMnaE746VkKibWXmHwdtn2zu g6lumCw7ZnXaFDKppnQziKlu TEB8d2AyRv41A44aFAyuCFQwEP OeFUIzTCTevTbazf5huP0fCe3+ NA9ln7hwus49xG03gWC+PHRk HDD5fKavTGemKLPynK2hPOfkEy F4QVHvSvJhkR71bSPyKXkjZe7k cJjshGjkEK2lFZVhshrjy228 XkOyz1bpKPXsiADnILkyIYP1U6 2ge5N4NUDtMDItKXV8cWH1fZ7g bGlnbjogbGVmdDsgdmVydGlj VEkxXNjqP021RMPtvUhfZoYlyU VoA0ipjbSROS7cMdfamQU+PHRk XQP7gQmhXIgfEHClaW9gMPCn U7q3QgSfHiU1HMepW1OkqcC1QB XztEFoZCGifDXKhW6pkjaki9vv kcjfTjEgWYDyKDw2PIu3UFWh aCgwAoKfEKQ4AfT3BWK7mNPmfZ 2ksCdypvtuaB3zEit+RklOOjwv dGQ+JWByHDX4cRlkBWehAOJd fZ8bFOYdL0g5IbZcJbX9ZEbyF7 AlctG2ABWzlZXkOBXarCMScQ1g emguc8gmqmbjLgRiZWWlJHu6 PVe0AQIflUdjSaZeQCI7NnZ7WO G1xYYjoK6jnVuflsmurQ2eXef+ TVJOOjwvdGQ+RWJfDAU5hMbw IXrcSCGndS7oHSFsY7x1WmJpAj C8RMqsB3McyeS1UWYryUFtRKBx aLKUuR6lqfboa3kecgmqFzAl BLEgFEk5TZb6AEIodZbpZsApXY Q9AlA1NHC5vOHyvH3fuUwzbkll uK4cVez+TYD4TEG4IA87JN77 V5NdShekiXQjqKD+PHRhYmxlIH bhNCLaVLseSNRvMpWorCroGH0t Fp8oDTIuHJJwlAijnQBkQxWg b2x (more content not included)... Normal [facility] Consent Formson 10-12-2023 Consent Forms [id number] Normal [facility] BUN/Creat Ratioon 10-11-2023 eGFR Non AA 53 mL/min/1.73m2 Invalid Interpretation Code [facility] Comment on above: Performed By: #### 1 [id number] #### [facility] (DEFAULT) [address] [place] [address] eGFR AA >60 Invalid Interpretation Code [facility] Comment on above: Performed By: #### 1 [id number] #### [facility] (DEFAULT) [address] [place] [address] Creatinine [Mass/Vol] 1.31 mg/dL High 0.90-1.30 [facility] Comment on above: Performed By: #### 1 [id number] #### [facility] (DEFAULT) [address] [place] [address] Urea nitrogen [Mass/Vol] 25 mg/dL Normal 8-26 [facility] Comment on above: Performed By: #### 1 [id number] #### [facility] (DEFAULT) [address] [place] [address]19 Urea nitrogen/Creatinine [Mass ratio] 19.0 mg/mg High 4.6-16.2 [facility] Comment on above: Performed By: #### 1 [id number] #### [facility] (DEFAULT) [address] [place] [address] [address] Urogramon 10-11-2023 CT Urogram EXAMINATION: CT [...] Jassi Atkinson MD 10/13/23 1:26 pm Technologist: [facility] Provider Orderson 10-03-2023 Provider Orders [id number] [facility] Lab - AP Resultson Lab - AP Results [id number]#[id number] [facility] Coding Summaryon 09-26-2023 Coding Summary HTMLBase 64 WnvgpndeDAu2tQc+PGhlYWQ+PE 3NDWIsD91tnKTshP9iL4GJAPeG NlswCFNMMQrHMmNukaBuPE4zrZ NjZXJu IC8+IV6wSNMhBwphhNZjs7T6xE C0M45duk7yFKvkfPB8UJWgTpYq xzrkp8qmwAi4TPlvBweoWyAv UOAbcF77FDH3jA87Cq01pTIvvM Ftj9knpUp3MnIkAVBuXZI7cUmo TOntj5SkBHMyZ50gnQNsi3Y5 SDHgwDgigIScHqZxqXG1cF4mFS vinmpfe8togtqkWuc4om87jXZd y2N6aBY9V1BlmxW3IJNkdSCi NcmsuHUSdS0dlonit1byotykNi PoNHPyTNe7DHy3TNYfjPtgDeZe YI13VEG9HPKnxgPtA3YfLVTr lEeiWrU7n1Y1Uo5BK8DFKkveU6 VNTUFSWTwvdGQ+XS66ks17T0Vm RsteJkc2WQJwMTG3cVF1rF2c WLYvGHbuj1G9aUL0K3ArnyMuft 0ly4xyZYAdRWcnZ19pxPZmb2J9 SJFkwRJ7CATyrPzlRsGubT21 Oyc+MFFetObbm2NlCukdg9oyr3 bziTu9DedoFOLctmKtgWglRWI4 z9PuTr4hTXMskVV5kGB9yB1s XcDzUqB2KWmsX568NfFtfZGaVh krR87qN2GmaJM+THRoRpn2MJZj bGgzWS9fR4EdHQTdgfpmrTMn aFpdWA3cAAExjebdWBJznX6wHS YkU3r0SaUsRwD1SVhvO8AaJWWd hvqxXr25dQ2lZvAgQhE5RNbx U2PxjxY1CTBcrYIyJWvbBGH2I3 4wv6A2MGMwMUAtWTH6hMW3pK6x bGlnbjogbGVmdDsgdmVydGlj KZosLApdE505OMPdtOzqOhKxAA luZyBEYXRlOiAgMDIvMDYvMjAy NDwvdGQ+NVVhKJE6nYjrVTCo pWRgFJdyIp5wfFvakWjwDJ4rRI XdlbqsDRTvbT4kSVGhxKXunNyc SP8tSHVrbqrxa752KiIqDAX5 EVPmxPUbP0TvwS2xAdRaKJKhQK MbG1NecEKoJKbaN452YVsyEhS9 BZQihxBoG4JgQGQwgGuoQeE0 p3W6Jl3Dv0YeosdwA4DycNZdJs PrFdeeBTr1T8JuYwjawAP+PC90 BWMoQT78MHn9UEV3cEidHYmy TALxR2SpiN9cPbTbMCVdBAPyOt c+PHRhYmxlIHdpZHRoPScxMDAl AnIhiAsdQT2cUr4nQDIjFASt zXzsuRNhUtVso5mlEEOaVSmaDR 1lbHbjX1UzaAQ9OITuz8n0Li16 E25tG1NlvFK+UBAfwVN3qWF0 iQ4wJkRgKzF3IZvcB603LbMzwB VbExhmm4tzs3gqwMw1CuA7HQUk pqFclMzqEMS8p1OlNg21G70k IHdpZHRoPSIxNSUiIHZhbGlnbj 2kjL5gTi4+FOPhkNB7sHZ9qF1s SeOaBpX9ZFizP606DkFsiLEd Dvsqw4izn0rhdLc5CxYzCFDcnp FfsHumIGG7s3ZiHx36C2WbjQen f3DtVhm2il80kSVlr0G7vYB6 T2KeIGTghmiayJCweWkcRP4tEV HpiguyFCBbsF4xCFQiR7k9VsHj NmK3XTcgX9MnaiF5ZBIuvHEa GOIfuQNUhG7tdvrtp6ybiuqjSg RmFAXnSSd0BKk2XKQkdUecPkLd VUR1MhG3DPY7eNMrrN0ogHar vxelcO5cBvi+DWP5yEGgvCNPMK 1lOjwvdGQ+GQKqLYC7rUqxDMxq KYRtuP1pRJZhM6d1WmDzJwM7 APpvG4EirpR3LWUifNYcFICelP VYgO9yjlwhf4xhrnfsRuOeZUBt YZa6MKo6PDRgmMovApVlILG6 WaK2FRS7bFNuyM3ucAhtvphpwK 9wOyc+KblofHmwVFO4CTq8P5Ar Gxx4PNGdnXlzMT1uuKRdTFxn Ll2psBujnKwlUZ5yLQInbpawd3 10WsUto0xeGOBhnYYnWRekMFR0 D27dq1W5HJLpOBOpOWC2hCB5 fR0sgBdkfiefnVOdlGpwfkFzhV ysOEhzNEujE746AQOnoFfqBkEk HXi3W9XqWfw9WPIkuHzyRW3q mEAkOFouQw6fwYnqjLslDO9uPX Oynuqfe179ZqWeu3etNSNkyLZk GGgzFRR2S77ey8T1JIOnCOPk RCI0jOC7tC7adOcdgerhkKLnuG gnynJteMbvYJswGObsZ208LEEv zVwgEjLhnLj5R7PgJsj9DMHr oFqxZT5zoOEzLKawGh5ckPioaP swSF0rCQXdbacsu718UcAru1hx AHIxyZLgRImhLOA3R31iu8A2 CREjPHNeZVU0cGK1uS1xwJfzzb ogbGVmdDsgdmVydGljYWwtYWxp D011BGQgrXvuUmWodUmppgLp IWmnNBe7D5MbGeidbRT+PC90YW MhDK57bCOmtKNas2khlLi0NrTe DNLsQXO7gFalHBvyp7OeVTRk V64ayVPxf4T5MMUgrNqreJRePn OgaRA1mK3kCJmvoruzr3slmuwu Iwcji8rhhd70dK44S68cKMjk NTUpSOCjQICnIXRsvVnrxd1qkS 9wIi8+GAUbdBW6eBO4rZ8kPJFm YhQ0HTnnP893QcVzwCVmSfkl a7iet2cwgBg1BsP1KQVjrsXtxY tuXUY0g1AhYo60K77sFTaePYNm THMmWUSgSLQttAiloz4wnV9r Ii8+WDSzlXQ0jHX5fA6xGwNrVy D4MPimW240OcTkbKVwTugcP83t B7ThjME+RBHeWxx8UFNdiIsg DQ2ftSYxWEymCk1dZVE7EaQgRq UwNHtyW5UzLCSgnuhqnoalgGT0 PQOvGTYsuP68Wn0obGuwJMIt fVUNbI6wjuhab4cbvzkfTiLoXW InSNf2WQr8DCCktKmqVrSpBJE7 UwA3ILS7aKHgbP5cqBdbeskl kL9oO0CmZHJnffoxTj15qJ8rIt YgDuL0PPhbZiv+VEhPTUFTLCBD QPFYAECKYHW1O0MlYhp8RFTx mGvwCO8ttRNdFUgsXd5liAubtP yrCN0fLQGvcwvzEJXmlW0pIDSp nWZwrXugFT0dJGAmavqfg220 BcFbQTK3BBGnhATaX2AvnT8aYc AkCQGrVZNyK7IemJScIMrxZ652 ASduTaU7FQQzsrDmR2PrMPOw eEiyHmW8o2H8Ls5rCp7aLn2nMF A0DB84CC27fMUjz4E1nUL0I2Yg EFSdbobazowkkXN3FAUgNDUe hH69iWQmADlwUa8hd8E8s684QT QaZIXqsJ14Xb9njPnnNWKdnHFL yL5xklmez7iggjxwGpMiBZIv UCt7AYz4DVNbnQisOoAiGQM9Lq D8KCF6dDHcnT1ftBsrebibmL3k Oyc+QYExENVckhC9O9XfYgl4 FWQwuFfkBU7dnKLjTNhxBq4bnI cqyFwkSC7bKMTuhfyeBXPhaY1c OKKmbKHrbCuxDK7vSQUophhs s696WmHpFZR5NCJohBQlB0TxbU 0kUcRgTUIfFOEtE8MmqYTvAUlk C558EFcpTxZ2RDSsotWnC6Zy BRVsrKykOsJ0h2J5Lx5RGCsZET 39ID30eUOmq9A4mWU7Q6ByYINf oyxwsidlkZU1GGLnOQZilL33 pRBzEIezEa0qq8L0u622MTJfFK LvnM04Eg5jlWvxVBQruYNOdZ8c kumlv5flknovLxJuZDKdAJk6 ZKx4IZRhaKreFyYxRBX3KsH7RW J0oWPauI4keFfljlcssG2qLzo+ TCH7KTS8htdlagd7V1WuWwjc dHI+PV69RYFeSI56wNLygYUha2 henWd8RtXeUJLeNHT7hKvmQCgq i1GlKZOlA40atWDap4E1GPLj lOhcwVHsOyYkdKM6bN4pQMtsaq src1mlcytoBifyh2iqpw09aE67 P20tCJytPONcHMQhTGXuFQPx hHdxwi5cfN0dLn7+RXLibLU6lK D6kK5cTxFgOdC3FUvwS272DsBq jCUoGiydb3wpl9pisQh9RcVs LQHrvhAnvUnlUSP8v0IfDi69L4 9sIHdpZHRoPSIyMCUiIHZhbGln xj4yfC5oTz5+RC7ii7wfey84 bO03kCN+OJHaYAC8iIxuUKfyDN OceF0oWUuvUoS1SCVfAvDezG37 gMGxOOhzQz2dsLvogRhoTI2c RVCakknxh325NnCxv0vpBXTorM ZrMKuuXZY2R27df5R3ONLsYNAc AKV2uBW8oX7teMcynhlysNFm sMxxneAyaWwlJCacVTotZ748NA QgfCgfRnZqkZEhL2ipktBHXR5m OjwvdGQ+TXHgSHG6qMaaNAla UTQkfJ2bNTHnE2w0VaHtRtQ8WK yaU8FpteV4DONpeAZqUIIhxZAD aO6keansf1ougzpyZnSnFTBi KQo7BRw4QYKusWvkOzQaGDW1Mj N3RUC9nGYiqL8kmIgjekaqwQ4f Oyc+RklOOjwvdGQ+PHRkIHN0 aTpzQLjeMAIegM0tNRClM1l7Xl IjVzS2YDqbN7OskhH3ASOqkPNj KXMahNAImQ1uoqmug4xhfvyx VwCzDABjYHb8XHx8FXCxuPfbWf EiSWX5McQ1CGU6dMBmoZ1geFcq saurqC0rVwb+TVJOOjwvdGQ+ FKUxOMG0fWorVMdcBXPjmY9iQX LdL8e0PuAcDoT9HGnmR7AoyxY2 MEZvuGExXIHmhWBCsC8akuzo a4ghmgucKcZuWLLqMNd7UUz1IK PomLqzMiWxFHJ2JiT1ECW7zIRr aD8lsXcnujpgpF4iLts+UGF5 IWH8HZ74QC59F7BaOiwkmRKxeE U+PHRhYmxlIHdpZHRoPScxMDAl SaRgfKvqUL6xAo8kZUEsLGYn bGx (more content not included)... [facility] Lab - AP Resultson 4 Lab - AP Results [id number] [facility] Lab - AP Resultson 4 Lab - AP Results [id number] [facility] SURGICAL PATHOLOGY REFERENCE LAB CONSULTon 2023 CASE REPORT Normal [facility] Comment on above: Order Comment: Speci men Type: FORMALIN-FIXED PARAFFIN-EMBEDDED TISSUE SPECIMEN Ordering Facility: [facility] Address: [address] [place], [place] [address] [address] Result Comment: Surg ical Pathology Report Case: [id number] Authorizing Provider: Ivan Barnhart MD Collected: 2023 09:46 AM Ordering Location: [facility] Received: 2023 09:46 AM [facility] Pathologist: Olivier Mina MD Specimen: SLIDE(S), 2 SLIDES [id number] Performed By: #### L [id number] #### [facility] CLIA [id number] [address] [place] [address] OF [facility] CLINICAL HISTORY CONSULT REQUESTED Normal C [facility] Comment on above: Order Comment: Speci men Type: FORMALIN-FIXED PARAFFIN-EMBEDDED TISSUE SPECIMEN Ordering Facility: [facility] Address: [address] [place] [address] Performed By: #### L [id number] #### [facility] CLIA [id number] [address] [place] [address] [place] DIAGNOSIS COMMENT Thank you for allowi ng to review this bladder lesion from an 78-year-old man. 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 Normal [facility] Comment on above: Order Comment: Speci men Type: FORMALIN-FIXED PARAFFIN-EMBEDDED TISSUE SPECIMEN Ordering Facility: [facility] Address: [address] [place] [address] [place] [id number] Performed By: #### L [id number] #### [facility] CLIA [id number] [address] [place] [address] FINAL DIAGNOSIS Normal [facility] Comment on above: Order Comment: Speci men Type: FORMALIN-FIXED PARAFFIN-EMBEDDED TISSUE SPECIMEN Ordering Facility: [facility] Address: [address] [place], [place] [address] [id number] Result Comment: [facility]; [place], [place] ([id number], 09/14/23) A. Urinary bladder, biopsy: - Benign nephrogenic adenoma. JDERRELL 2023 Performed By: #### L [id number] #### [facility] CLIA [id number] [address] [place] [address] [place] FINAL PERFORMING LAB Normal [facility] Comment on above: Order Comment: Speci men Type: FORMALIN-FIXED PARAFFIN-EMBEDDED TISSUE SPECIMEN Ordering Facility: [facility] Address: [address] [place] [address] Result Comment: Diag nostic interpretation performed at [facility], [address] [place], [place] [address] CLIA# [id number] Denture Packer: Jaylan Mcfadden M.D. Performed By: #### L [id number] #### [facility] CLIA [id number] [address] [place] [address] [place] ECG 12 Leadon 09-20-2023 Sinus bradycardia otherwise normal ECG [facility] Work Phone: Consent Formson 09-15-2023 Consent Forms [id number] Normal [facility] MAGR Intraoperative Recordon 09-15-2023 [facility] [place] [facility] Intra-Op Record Summary Primary Physician: Ivan Barnhart MD Finalized Date/Time: 09/15/23 14:36:30 Pt. Name: TAURUS GARCIA/Sex: 1945 MALE Med Rec #: [id number] Physician: Ivan Barnhart MD Financial #: [id number] Pt. Type: D Room/Bed: / Admit/Disch: 09/14/23 [...] Barnhart MD, Kelly RN Radloff, Leigh-Ann CSFA CAMPGROUND CARETAKER Role Performed Surgeon - Primary Lens Shaper Grinder Scrub Personnel Time In 09/14/23 14:34:00 09/14/23 14:25:00 09/14/23 14:25:00 Time Out 09/14/23 14:42:00 09/14/23 14:42:00 09/14/23 14:42:00 Procedure Cystoscopy Bladder Cystoscopy Bladder Cystoscopy Bladder Biopsy Biopsy Biopsy Last Modified By: Monserrat Prince RN, Kelly RN Weisenburger, Kelly RN 09/14/23 14:41:36 09/14/23 14:41:36 09/14/23 14:41:36 Entry 4 Entry 5 Case Attendee Nena Wells CST, CST, Barbara RN CSFA Role Performed Scrub Personnel Lens Shaper Grinder Time In 09/14/23 14:25:00 09/14/23 14:25:00 Time [...] Participants Monserrat Prince RN, Larissa Freitas-Jennifer CSFA CAMPGROUND CARETAKER, Russell CAMPGROUND CARETAKER, Nena LOPEZ CSFA Last Modified By: Monserrat [...] Outcome Met (O.80) (more content not included)... Normal [facility] Provider Orderson 09-15-2023 Provider Orders [id number] Normal [facility] Inpatient Patient Summaryon 09-14-2023 Inpatient [place] [address] Patient Discharge Instructions Name: TAURUS GARCIA : 1945 Patient Address: [address] [place] [address] Primary Care Provider: Name: KOMAL NGUYEN After you are discharged if you find you have any questions, please, call [phone] ext [phone] to speak to a nurse. Discharge Diagnosis: 1:Bladder tumor Prescription Information: If you have been given a prescription for narcotics, seek immediate medical attention if you have any difficulty breathing or any sudden status changes such as confusion and sleepiness. If you or anyone you know is experiencing suicidal thoughts, mental health, alcohol and/or drug addiction problems; contact the [facility] 13/03 Crisis Hotline -text 4HYLL gw 677663. If you received any narcotics, sedation, or [...] business decisions or sign any legal documents [facility] would like to thank you for [...] day. pyridostigmine (pyridost (more content not included)... Normal [facility] 09-14-2023 L Specimen: Received: 09/15/23 Status: [facility] Num: [id number] Spec Type: Surgical Subm Dr: Ivan Barnhart MD Tissues: A Urinary Bladder - biopsy (BLADDER BX) Procedures: HE/2, Gross/Micro L4 Age/ Patient Sex Location Account Attending Physician Taurus Garcia 77/M [facility] [id number] Ivan Barnhart MD SPEC NUM: [id number] RECD: 09/15/23 STATUS: [facility] NUM: [id number] SUMI: 09/14/23 DR: Ivan Barnhart MD ENTERED: 09/15/[address] [facility] DR: Irene,Lab SPEC TYPE: Surgical DEPT: [facility] ORDERED: HE/2, Gross/Micro L4 ORDERED: HE/2, Gross/Micro L4 Supplemental Report Addendum 1 Entered: 09/22/23 The consult report has has been reviewed and is as follows from the [facility]: A. 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 - See comment. Specimen: [id number] Received: 09/15/23 Status: [facility] Num: [id number] Spec Type: Surgical Subm Dr: Ivan Barnhart MD Tissues: A Urinary Bladder - biopsy (BLADDER BX) Procedures: HE/2, Gross/Micro L4 Patient: Taurus Garcia [id number] (Continued) Specimen: [id number] Received: 09/15/23 (Continued) Pathological Diagnosis (Continued) Signed (signature on file) Delfino Burks DO 09/21/23 1501 Specimen: [id number] Received: 09/15/23 Status: [facility] Num: [id number] Spec Type: Surgical Subm Dr: Ivan Barnhart MD Tissues: A Urinary Bladder - biopsy (BLADDER BX) Procedures: NIKITA/Carolina Sanderson/Syed L4 Patient: Taurus Garcia [id number] (Continued) Specimen: [id number] Received: 09/15/23 (Continued) Pathological Diagnosis (Continued) Comment: The patient's [...] in one cassette labeled A1. CPT Codes 86266 Specimen: [id number] Received: 09/15/23 Status: [facility] Num: [id number] Spec Type: Surgical Subm Dr: Ivan Barnhart MD Tissues: A Urinary Bladder - biopsy (BLADDER BX) Procedures: HE/2, Gross/Micro L4 Patient: Taurus Garcia [id number] (Continued) Signed (signature on file) Delfino BurksDO 09/21/23 1501 Normal [facility] MAGR Preoperative Recordon 0 09-14-2023 [facility] Preoperative Record [facility] Pre-Op Record Summary Primary Physician: Ivan Barnhart MD Finalized Date/Time: 09/14/23 15:31:07 Pt. Name: TAURUS GARCIA /Sex: 1945 MALE Med Rec #: [id number] Physician: Ivan Barnhart MD Financial #: [id number] Pt. Type: D Room/Bed: / Admit/Disch: 09/14/23 [...] Preop Departure 09/14/23 14:23:00 Last Modified By: Taco ROMERO, Kassandra Hair 09/14/23 15:31:03 Post-Care Text: Patient is prepared [...] By: Kassandra España RN 09/14/23 15:31 Normal [facility] Patient Handouton 09-14-2023 Patient Handout Normal [facility] XR C-SPINE COMPLETE 6+ VIEWS on [...] BY: Jacklyn Koo MD Normal Not Available Automated basophil %Ordered By: Antonia Grier on 05-30-2023 Basophils/100 WBC (Bld) 0.2 % Normal . [facility] Comment on above: Performed By: #### G LULS #### Point of Care testing , Automated basophil countOrde red By: Antonia Grier on 05-30-2023 Basophils (Bld) [#/Vol] 0.0 10*3/uL Normal 0.0-0.2 [facility] Comment on above: Result Comment: PERF ORMED BY: [facility] [address] [place] [address] PATHOLOGIST MANAGER APPOINTMENT GINA CARDONA M.D. Performed By: #### G LULS #### Point of Care testing , Automated blood monocyte cou ntOrdered By: Antonia Grier on 05-30-2023 Monocytes (Bld) [#/Vol] 0.8 10*3/uL Normal 0.0-0.8 [facility] Comment on above: Performed By: #### G LULS #### Point of Care testing , Automated eosinophil %Ordere d By: Antonia Grier on 05-30-2023 Eosinophils/100 WBC (Bld) 3.8 % Normal . [facility] Comment on above: Performed By: #### G LULS #### Point of Care testing , Automated eosinophil countOr dered By: Antonia Grier on 05-30-2023 Eosinophils (Bld) [#/Vol] 0.2 10*3/uL Normal 0.0-0.45 [facility] Comment on above: Performed By: #### G LULS #### Point of Care testing , Automated monocyte %Ordered By: Antonia Grier on 05-30-2023 Monocytes/100 WBC (Bld) 14.8 % Normal . [facility] Comment on above: Performed By: #### G LULS #### Point of Care testing , Automated neutrophil %Ordere d By: Antonia Grier on 05-30-2023 Neutrophils/100 WBC (Bld) 51.5 % Normal . [facility] Comment on above: Performed By: #### G LULS #### Point of Care testing , Basic Metabolic Panelon 05-21 Creatinine Clr Calc Pharmacy 89.45 Normal [facility] Comment on above: Result Comment: PERF ORMED BY: [facility] [address] [place] [address] PATHOLOGIST MANAGER APPOINTMENT GINA CARDONA M.D. Performed By: #### G LULS #### Point of Care testing , GFR/1.73 sq M.predicted MDRD (S/P/Bld) [Vol rate/Area] mL/min/{1.73_m2} Normal [facility] Comment on above: Performed By: #### G LULS #### Point of Care testing , Calcium [Mass/volume] in Ser um or PlasmaOrdered By: Antonia Grier on 05-30-2023 Calcium [Mass/Vol] 8.6 mg/dL Normal 8.6-10.3 [facility] Comment on above: Performed By: #### G LULS #### Point of Care testing , Carbon dioxide, total [Moles /volume] in Serum or PlasmaOrdered By: Antonia Grier on 05-30-2023 CO2 [Moles/Vol] 30.6 mmol/L Normal 21.0-31.0 [facility] Comment on above: Performed By: #### G LULS #### Point of Care testing , Chloride [Moles/volume] in S [place] or PlasmaOrdered By: Antonia Grier on 05-30-2023 Chloride [Moles/Vol] 104 mmol/L Normal 98-107 [facility] Comment on above: Performed By: #### G LULS #### Point of Care testing , Clostridioides difficile tox in B tcdB gene [Presence] in Stool by JAYDE with probe deteOrdered By: Silvestre Grover on 05-30-2023 C. difficile toxin B tcdB gene JAYDE+probe Ql (Stl) Negative Negative [facility] Comment on above: Testing performed by RT-PCR Clostridium Difficileon 05-21 Clostridium Difficile Negative Normal Negative [facility] Comment on above: Order Comment: > or = to 3 loose/watery stools in the last 24 HRS? N Is patient on promotility agents or tube feeding? N Result Comment: Test ing performed by RT-PCR PERFORMED BY: [place] [address] PATHOLOGIST MANAGER APPOINTMENT GINA CARDONA M.D. Performed By: #### B MP #### [address] Complete Blood Count Auto Di ffon 05-30-2023 Mean Corpuscular HGB Conc 33.4 g/dL Normal 32.5-35.6 [facility] Comment on above: Performed By: #### G LULS #### Point of Care testing , NRBC% 0.2 /100{WBC} Normal 0-0.5 [facility] Comment on above: Performed By: #### G LULS #### Point of Care testing , Creatinine [Mass/volume] in Serum or PlasmaOrdered By: Antonia Grier on 05-30-2023 Creatinine [Mass/Vol] 0.91 mg/dL Normal 0.70-1.30 [facility] Comment on above: Performed By: #### G LULS #### Point of Care testing , Erythrocyte distribution wid th [Ratio] by Automated countOrdered By: Antonia Grier on 05-30-2023 Erythrocyte distribution width (RBC) [Ratio] 18.1 % High 12.0-14.8 [facility] Comment on above: Performed By: #### G LULS #### Point of Care testing , Erythrocytes [#/volume] in B lood by Automated countOrdered By: Antonia Grier on 05-30-2023 RBC (Bld) [#/Vol] 4.25 10*6/uL Normal 3.90-5.60 [facility] Comment on above: Performed By: #### G LULS #### Point of Care testing , Glucose [Mass/volume] in Ser um or PlasmaOrdered By: Antonia Grier on 05-30-2023 Glucose [Mass/Vol] 98 mg/dL Normal 70-100 [facility] Comment on above: ADA recommended refe rence rangeRandom Glucose Reference Range is dependent on time and content of last meal. Glucose of more than 200 mg/dL in a nonstressed, ambulatory subject supports the diagnosis of Diabetes Mellitus. Result Comment: [place] Glucose Reference Range is dependent on time and content of last meal. Glucose of more than 200 mg/dL in a nonstressed, ambulatory subject supports the diagnosis of Diabetes Mellitus. ADA recommended reference range Performed By: #### G LULS #### Point of Care testing , Hematocrit [Volume Fraction] of Blood by Automated countOrdered By: Antonia Grier on 05-30-2023 Hematocrit (Bld) [Volume fraction] 36.5 % Low 38.8-50.0 [facility] Comment on above: Performed By: #### G LULS #### Point of Care testing , Hemoglobin [Mass/volume] in BloodOrdered By: Antonia Grier on 05-30-2023 Hemoglobin (Bld) [Mass/Vol] 12.2 g/dL Low 13.0-17.0 [facility] Comment on above: Performed By: #### G LULS #### Point of Care testing , Leukocytes [#/volume] correc blessing for nucleated erythrocytes in Blood by Automated counOrdered By: Antonia Grier on 05-30-2023 WBC corrected for nucl RBC Auto (Bld) [#/Vol] 5.6 10*3/uL 4.1-10.5 [facility] Leukocytes [#/volume] in Blo od by Automated countOrdered By: Antonia Grier on 05-30-2023 WBC (Bld) [#/Vol] 5.6 10*3/uL Normal 4.1-10.5 [facility] Comment on above: Performed By: #### G LULS #### Point of Care testing , Lymphocytes [#/volume] in Bl ood by Automated countOrdered By: Antonia Grier on 05-30-2023 Lymphocytes (Bld) [#/Vol] 1.7 10*3/uL Normal 1.00-4.8 [facility] Comment on above: Performed By: #### G LULS #### Point of Care testing , Lymphocytes/100 leukocytes i n Blood by Automated countOrdered By: Antonia Grier on 05-30-2023 Lymphocytes/100 WBC (Bld) 29.7 % Normal . [facility] Comment on above: Performed By: #### G LULS #### Point of Care testing , MCH [Entitic mass] by Automa blessing countOrdered By: Antonia Grier on 05-30-2023 MCH (RBC) [Entitic mass] 28.7 pg Normal 27.5-35.2 [facility] Comment on above: Performed By: #### G LULS #### Point of Care testing , MCHC Auto (RBC) [Mass/Vol]Or dered By: Antonia Grier on 05-30-2023 MCHC (RBC) [Mass/Vol] 33.4 g/dL 32.5-35.6 [facility] MCV [Entitic volume] by Auto mated countOrdered By: Antonia Grier on 05-30-2023 MCV (RBC) [Entitic vol] 85.8 fL Normal 83.5-101 [facility] Comment on above: Performed By: #### G LULS #### Point of Care testing , Neutrophils [#/volume] in Bl ood by Automated countOrdered By: Antonia Grier on 05-30-2023 Neutrophils (Bld) [#/Vol] 2.9 10*3/uL Normal 1.8-7.7 [facility] Comment on above: Performed By: #### G LULS #### Point of Care testing , No Panel InformationOrdered By: Antonia Grier on 05-30-2023 Estimated GFR (CKD-EPI) > 60.0 mL/Min [facility] Creatinine Clearance (Chem 89.45 [facility] Nucleated erythrocytes [Pres ence] in Blood by Automated countOrdered By: Antonia Grier on 05-30-2023 Nucleated RBC Auto Ql (Bld) 0.2 /100{WBC} 0-0.5 [facility] Platelet mean volume [Entiti c volume] in Blood by Automated countOrdered By: Antonia Grier on 05-30-2023 Platelet mean volume (Bld) [Entitic vol] 7.9 fL Normal 6.6-10.1 [facility] Comment on above: Performed By: #### G LULS #### Point of Care testing , Platelets [#/volume] in Bloo d by Automated countOrdered By: Antonia Grier on 05-30-2023 Platelets (Bld) [#/Vol] 258 10*3/uL Normal 150-450 [facility] Comment on above: Performed By: #### G LULS #### Point of Care testing , Potassium [Moles/volume] in Serum or PlasmaOrdered By: Antonia Grier on 05-30-2023 Potassium [Moles/Vol] 3.6 mmol/L Normal 3.5-5.1 [facility] Comment on above: Performed By: #### G LULS #### Point of Care testing , Serum or plasma anion gap de terminationOrdered By: Antonia Grier on 05-30-2023 Anion gap [Moles/Vol] 9.0 mmol/L Normal 6.0-15.0 [facility] Comment on above: Performed By: #### G LULS #### Point of Care testing , Sodium [Moles/volume] in Ser um or PlasmaOrdered By: Antonia Grier on 05-30-2023 Sodium [Moles/Vol] 140 mmol/L Normal 136-145 [facility] Comment on above: Performed By: #### G LULS #### Point of Care testing , Urea nitrogen [Mass/volume] in Serum or PlasmaOrdered By: Antonia Grier on 05-30-2023 Urea nitrogen [Mass/Vol] 19 mg/dL Normal 7-25 [facility] Comment on above: Performed By: #### G LULS #### Point of Care testing , US venous duplex LE BIon US venous duplex LE BI [facility] [place] [address] Ultrasound Report Signed Patient: Taurus Garcia MR#: [id number] : 1945 Acct:[id number] Age/Sex: 77 / M ADM Date: 05/21/23 Loc: Room: [address] [place] [address] Type: ADM IN Attending Dr: Silvestre Grover [...] Aaron Gibson M.D.05/26/2023 2:48 PM Dictation Location: [place] [address] Tech: Kathy Gibson Transcribed By: KRISSY 05/26/231447 Dictated By: Aaron Gibson MD 05/26/231446 Signed By: 05/26/231447 Normal [facility] Alanine aminotransferase [En zymatic activity/volume] in Serum or PlasmaOrdered By: Silvestre Reilly on 05-22-2023 ALT [Catalytic activity/Vol] 30 U/L Normal 7-52 [facility] Comment on above: Performed By: #### G LULS #### Point of Care testing , Albumin [Mass/volume] in Ser um or Plasma by Bromocresol green (BCG) dye binding methoOrdered By: Silvestre Grovre on 05-22-2023 Albumin BCG dye [Mass/Vol] 2.5 g/dL 3.5-5.7 [facility] Alkaline phosphatase [Enzyma tic activity/volume] in Serum or PlasmaOrdered By: Silvestre Grover on 05-22-2023 ALP [Catalytic activity/Vol] 69 U/L Normal 34-104 [facility] Comment on above: Performed By: #### G LULS #### Point of Care testing , Aspartate aminotransferase [ Enzymatic activity/volume] in Serum or PlasmaOrdered By: Silvestre Grover on 05-22-2023 AST [Catalytic activity/Vol] 34 U/L Normal 13-39 [facility] Comment on above: Performed By: #### G LULS #### Point of Care testing , Bilirubin.total [Mass/volume ] in Serum or PlasmaOrdered By: Silvestre Grover on 05-22-2023 Bilirubin [Mass/Vol] 0.6 mg/dL Normal 0.3-1.0 [facility] Comment on above: Performed By: #### G LULS #### Point of Care testing , Complete Blood Count Auto Di ffon 05-22-2023 Basophils (Bld) [#/Vol] 0.0 10*3/uL Normal 0.0-0.2 [facility] Comment on above: Result Comment: PERF ORMED BY: [facility] [address] [place] [address] PATHOLOGIST MANAGER APPOINTMENT GINA CARDONA M.D. Performed By: #### G LULS #### Point of Care testing , Basophils/100 WBC (Bld) 0.3 % Normal . [facility] Comment on above: Performed By: #### G LULS #### Point of Care testing , Eosinophils (Bld) [#/Vol] 0.4 10*3/uL Normal 0.0-0.45 [facility] Comment on above: Performed By: #### G LULS #### Point of Care testing , Eosinophils/100 WBC (Bld) 5.4 % Normal . [facility] Comment on above: Performed By: #### G LULS #### Point of Care testing , Erythrocyte distribution width (RBC) [Ratio] 18.1 % High 12.0-14.8 [facility] Comment on above: Performed By: #### G LULS #### Point of Care testing , Hematocrit (Bld) [Volume fraction] 38.0 % Low 38.8-50.0 [facility] Comment on above: Performed By: #### G LULS #### Point of Care testing , Hemoglobin (Bld) [Mass/Vol] 12.4 g/dL Low 13.0-17.0 [facility] Comment on above: Performed By: #### G LULS #### Point of Care testing , Lymphocytes (Bld) [#/Vol] 1.5 10*3/uL Normal 1.00-4.8 [facility] Comment on above: Performed By: #### G LULS #### Point of Care testing , Lymphocytes/100 WBC (Bld) 20.4 % Normal . [facility] Comment on above: Performed By: #### G LULS #### Point of Care testing , MCH (RBC) [Entitic mass] 28.0 pg Normal 27.5-35.2 [facility] Comment on above: Performed By: #### G LULS #### Point of Care testing , MCV (RBC) [Entitic vol] 86.0 fL Normal 83.5-101 [facility] Comment on above: Performed By: #### G LULS #### Point of Care testing , Mean Corpuscular HGB Conc 32.5 g/dL Normal 32.5-35.6 [facility] Comment on above: Performed By: #### G LULS #### Point of Care testing , Monocytes (Bld) [#/Vol] 0.8 10*3/uL Normal 0.0-0.8 [facility] Comment on above: Performed By: #### G LULS #### Point of Care testing , Monocytes/100 WBC (Bld) 10.8 % Normal . [facility] Comment on above: Performed By: #### G LULS #### Point of Care testing , Neutrophils (Bld) [#/Vol] 4.6 10*3/uL Normal 1.8-7.7 [facility] Comment on above: Performed By: #### G LULS #### Point of Care testing , Neutrophils/100 WBC (Bld) 63.1 % Normal . [facility] Comment on above: Performed By: #### G LULS #### Point of Care testing , NRBC% 0.1 /100{WBC} Normal 0-0.5 [facility] Comment on above: Performed By: #### G LULS #### Point of Care testing , Platelet mean volume (Bld) [Entitic vol] 8.4 fL Normal 6.6-10.1 [facility] Comment on above: Performed By: #### G LULS #### Point of Care testing , Platelets (Bld) [#/Vol] 153 10*3/uL Normal 150-450 [facility] Comment on above: Performed By: #### G LULS #### Point of Care testing , RBC (Bld) [#/Vol] 4.42 10*6/uL Normal 3.90-5.60 [facility] Comment on above: Performed By: #### G LULS #### Point of Care testing , WBC (Bld) [#/Vol] 7.3 10*3/uL Normal 4.1-10.5 [facility] Comment on above: Performed By: #### G LULS #### Point of Care testing , Comprehensive Metabolic Pane rc 05-22-2023 Albumin [Mass/Vol] 2.5 g/dL Low 3.5-5.7 [facility] Comment on above: Performed By: #### G LULS #### Point of Care testing , Anion gap [Moles/Vol] 7.9 mmol/L Normal 6.0-15.0 [facility] Comment on above: Performed By: #### G LULS #### Point of Care testing , Calcium [Mass/Vol] 8.1 mg/dL Low 8.6-10.3 [facility] Comment on above: Performed By: #### G LULS #### Point of Care testing , Chloride [Moles/Vol] 106 mmol/L Normal 98-107 [facility] Comment on above: Performed By: #### G LULS #### Point of Care testing , CO2 [Moles/Vol] 30.8 mmol/L Normal 21.0-31.0 [facility] Comment on above: Performed By: #### G LULS #### Point of Care testing , Creatinine [Mass/Vol] 0.83 mg/dL Normal 0.70-1.30 [facility] Comment on above: Performed By: #### G LULS #### Point of Care testing , Creatinine Clr Calc Pharmacy 100.28 Normal [facility] Comment on above: Performed By: #### G LULS #### Point of Care testing , GFR/1.73 sq M.predicted MDRD (S/P/Bld) [Vol rate/Area] mL/min/{1.73_m2} Normal [facility] Comment on above: Performed By: #### G LULS #### Point of Care testing , Glucose [Mass/Vol] 92 mg/dL Normal 70-100 [facility] Comment on above: Result Comment: [place] Glucose Reference Range is dependent on time and content of last meal. Glucose of more than 200 mg/dL in a nonstressed, ambulatory subject supports the diagnosis of Diabetes Mellitus. ADA recommended reference range Performed By: #### G LULS #### Point of Care testing , Potassium [Moles/Vol] 3.7 mmol/L Normal 3.5-5.1 [facility] Comment on above: Performed By: #### G LULS #### Point of Care testing , Sodium [Moles/Vol] 141 mmol/L Normal 136-145 [facility] Comment on above: Performed By: #### G LULS #### Point of Care testing , Urea nitrogen [Mass/Vol] 19 mg/dL Normal 7-25 [facility] Comment on above: Performed By: #### G LULS #### Point of Care testing , Prealbumin [Mass/volume] in Serum or PlasmaOrdered By: Silvestre Grover on 05-22-2023 Prealbumin [Mass/Vol] 11.9 mg/dL Low 17.0-34.0 [facility] Comment on above: Result Comment: PERF ORMED BY: [facility] [address] [place] [address] PATHOLOGIST MANAGER APPOINTMENT GINA CARDONA M.D. Performed By: #### G LULS #### Point of Care testing , Protein [Mass/volume] in Ser um or PlasmaOrdered By: Silvestre Grover on 05-22-2023 Protein [Mass/Vol] 7.2 g/dL Normal 6.4-8.9 [facility] Comment on above: Performed By: #### G LULS #### Point of Care testing , Serum globulin measurement b y calculation (mass/volume)Ordered By: Silvestre Grover on 05-22-2023 Globulin (S) [Mass/Vol] 4.7 g/dL Normal [facility] Comment on above: Performed By: #### G LULS #### Point of Care testing , Serum or plasma albumin/glob ulin mass ratioOrdered By: Silvestre Grover on 05-22-2023 Albumin/Globulin [Mass ratio] 0.5 {ratio} Normal [facility] Comment on above: Performed By: #### G LULS #### Point of Care testing , Automated basophil %Ordered By: Donita Armstrong on 05-20-2023 Basophils/100 WBC (Bld) 0.3 % Normal . [facility] Comment on above: Performed By: #### C BC ####[facility] [id number] [place], [address] Automated basophil countOrde red By: Donita Patti on 05-20-2023 Basophils (Bld) [#/Vol] 0.0 10*3/uL Normal 0.0-0.2 [facility] Comment on above: Result Comment: PERF ORMED BY: [facility] [address] [place] [address] PATHOLOGIST MANAGER APPOINTMENT GINA CARDONA M.D. Performed By: #### C BC ####[address] Automated blood monocyte cou ntOrdered By: Donita Patti on 05-20-2023 Monocytes (Bld) [#/Vol] 0.5 10*3/uL Normal 0.0-0.8 [facility] Comment on above: Performed By: #### C BC ####[address] Automated eosinophil %Ordere d By: Donita Patti on 05-20-2023 Eosinophils/100 WBC (Bld) 10.4 % Normal . [facility] Comment on above: Performed By: #### C BC ####[address] Automated eosinophil countOr dered By: Donita Patti on 05-20-2023 Eosinophils (Bld) [#/Vol] 0.6 10*3/uL High 0.0-0.45 [facility] Comment on above: Performed By: #### C BC ####[address] Automated monocyte %Ordered By: Donita Patti on 05-20-2023 Monocytes/100 WBC (Bld) 8.4 % Normal . [facility] Comment on above: Performed By: #### C BC ####[address] Automated neutrophil %Ordere d By: Donita Patti on 05-20-2023 Neutrophils/100 WBC (Bld) 58.5 % Normal . [facility] Comment on above: Performed By: #### C BC ####[address] [place] [address] [place] Basic Metabolic Panelon 04-23 Creatinine Clr Calc Pharmacy 87.95 Normal [facility] Comment on above: Result Comment: PERF ORMED BY: [place] [address] PATHOLOGIST MANAGER APPOINTMENT GINA CARDONA M.D. Performed By: #### B MP #### [address] GFR/1.73 sq M.predicted MDRD (S/P/Bld) [Vol rate/Area] mL/min/{1.73_m2} Normal [facility] Comment on above: Performed By: #### B MP #### [address] Calcium [Mass/volume] in Ser um or PlasmaOrdered By: Donita Patti on 05-20-2023 Calcium [Mass/Vol] 8.1 mg/dL Low 8.6-10.3 [facility] Comment on above: Performed By: #### B MP #### [address] Carbon dioxide, total [Moles /volume] in Serum or PlasmaOrdered By: Donita Patti on 05-20-2023 CO2 [Moles/Vol] 33.6 mmol/L High 21.0-31.0 [facility] Comment on above: Performed By: #### B MP #### [place] [address] [place] Chloride [Moles/volume] in S [place] or PlasmaOrdered By: Donita Patti on 05-20-2023 Chloride [Moles/Vol] 107 mmol/L Normal 98-107 [facility] Comment on above: Performed By: #### B MP #### [address] Complete Blood Count Auto Di ffon 05-20-2023 Mean Corpuscular HGB Conc 32.6 g/dL Normal 32.5-35.6 [facility] Comment on above: Performed By: #### C BC ####[place] [id number] [address] NRBC% 0.4 /100{WBC} Normal 0-0.5 [facility] Comment on above: Performed By: #### C BC ####[address] Creatinine [Mass/volume] in Serum or PlasmaOrdered By: Donita Armstrong on 05-20-2023 Creatinine [Mass/Vol] 0.96 mg/dL Normal 0.70-1.30 [facility] Comment on above: Performed By: #### B MP #### [address] Erythrocyte distribution wid th [Ratio] by Automated countOrdered By: Donita Armstrong on 05-20-2023 Erythrocyte distribution width (RBC) [Ratio] 17.8 % High 12.0-14.8 [facility] Comment on above: Performed By: #### C BC ####[address] Erythrocytes [#/volume] in B lood by Automated countOrdered By: Donita Armstrong on 05-20-2023 RBC (Bld) [#/Vol] 4.31 10*6/uL Normal 3.90-5.60 [facility] Comment on above: Performed By: #### C BC ####[address] Glucose [Mass/volume] in Ser um or PlasmaOrdered By: Donita Armstrong on 05-20-2023 Glucose [Mass/Vol] 94 mg/dL Normal 70-100 [facility] Comment on above: ADA recommended refe rence rangeRandom Glucose Reference Range is dependent on time and content of last meal. Glucose of more than 200 mg/dL in a nonstressed, ambulatory subject supports the diagnosis of Diabetes Mellitus. Result Comment: [place] Glucose Reference Range is dependent on time and content of last meal. Glucose of more than 200 mg/dL in a nonstressed, ambulatory subject supports the diagnosis of Diabetes Mellitus. ADA recommended reference range Performed By: #### B MP #### [facility] [address] Hematocrit [Volume Fraction] of Blood by Automated countOrdered By: Donita Patti on 05-20-2023 Hematocrit (Bld) [Volume fraction] 36.9 % Low 38.8-50.0 [facility] Comment on above: Performed By: #### C BC ####[address] Hemoglobin [Mass/volume] in BloodOrdered By: Donita Patti on 05-20-2023 Hemoglobin (Bld) [Mass/Vol] 12.0 g/dL Low 13.0-17.0 [facility] Comment on above: Performed By: #### C BC ####[address] Leukocytes [#/volume] correc blessing for nucleated erythrocytes in Blood by Automated counOrdered By: Donita Patti on 05-20-2023 WBC corrected for nucl RBC Auto (Bld) [#/Vol] 6.0 10*3/uL 4.1-10.5 [facility] Leukocytes [#/volume] in Blo od by Automated countOrdered By: Donita Patti on 05-20-2023 WBC (Bld) [#/Vol] 6.0 10*3/uL Normal 4.1-10.5 [facility] Comment on above: Performed By: #### C BC ####[address] Lymphocytes [#/volume] in Bl ood by Automated countOrdered By: Donita Patti on 05-20-2023 Lymphocytes (Bld) [#/Vol] 1.3 10*3/uL Normal 1.00-4.8 [facility] Comment on above: Performed By: #### C BC ####[address] Lymphocytes/100 leukocytes i n Blood by Automated countOrdered By: Donita Patti on 05-20-2023 Lymphocytes/100 WBC (Bld) 22.4 % Normal . [facility] Comment on above: Performed By: #### C BC ####[address] [place] [address] [place] MCH [Entitic mass] by Automa blessing countOrdered By: Donita Patti on 05-20-2023 MCH (RBC) [Entitic mass] 27.9 pg Normal 27.5-35.2 [facility] Comment on above: Performed By: #### C BC ####[address] MCHC Auto (RBC) [Mass/Vol]Or dered By: Donita Patti on 05-20-2023 MCHC (RBC) [Mass/Vol] 32.6 g/dL 32.5-35.6 [facility] MCV [Entitic volume] by Auto mated countOrdered By: Donita Patti on 05-20-2023 MCV (RBC) [Entitic vol] 85.6 fL Normal 83.5-101 [facility] Comment on above: Performed By: #### C BC ####[address] Neutrophils [#/volume] in Bl ood by Automated countOrdered By: Donita Patti on 05-20-2023 Neutrophils (Bld) [#/Vol] 3.5 10*3/uL Normal 1.8-7.7 [facility] Comment on above: Performed By: #### C BC ####[address] No Panel InformationOrdered By: Donita Patti on 05-20-2023 Estimated GFR (CKD-EPI) > 60.0 mL/Min [facility] Creatinine Clearance (Chem 87.95 [facility] Nucleated erythrocytes [Pres ence] in Blood by Automated countOrdered By: Donita Patti on 05-20-2023 Nucleated RBC Auto Ql (Bld) 0.4 /100{WBC} 0-0.5 [facility] Platelet mean volume [Entiti c volume] in Blood by Automated countOrdered By: Donita Patti on 05-20-2023 Platelet mean volume (Bld) [Entitic vol] 8.5 fL Normal 6.6-10.1 [facility] Comment on above: Performed By: #### C BC ####[facility] [id number] Platelets [#/volume] in Bloo d by Automated countOrdered By: Donita Patti on 05-20-2023 Platelets (Bld) [#/Vol] 134 10*3/uL Low 150-450 [facility] Comment on above: Performed By: #### C BC ####[facility] [place] [address] Potassium [Moles/volume] in Serum or PlasmaOrdered By: Donita Patti on 05-20-2023 Potassium [Moles/Vol] 3.6 mmol/L Normal 3.5-5.1 [facility] Comment on above: Performed By: #### B MP #### [address] Serum or plasma anion gap de terminationOrdered By: Donita Patti on 05-20-2023 Anion gap [Moles/Vol] 6.0 mmol/L Normal 6.0-15.0 [facility] Comment on above: Performed By: #### B MP #### [address] Sodium [Moles/volume] in Ser um or PlasmaOrdered By: Donita Patti on 05-20-2023 Sodium [Moles/Vol] 143 mmol/L Normal 136-145 [facility] Comment on above: Performed By: #### B MP #### [place] [address] [place] Urea nitrogen [Mass/volume] in Serum or PlasmaOrdered By: Donita Patti on 05-20-2023 Urea nitrogen [Mass/Vol] 26 mg/dL High 7-25 [facility] Comment on above: Performed By: #### B MP #### [address] Basic Metabolic Panelon 04-22 Anion gap [Moles/Vol] 6.5 mmol/L Normal 6.0-15.0 [facility] Comment on above: Performed By: #### B MP #### [address] Calcium [Mass/Vol] 8.1 mg/dL Low 8.6-10.3 [facility] Comment on above: Performed By: #### B MP #### [address] Chloride [Moles/Vol] 105 mmol/L Normal 98-107 [facility] Comment on above: Performed By: #### B MP #### [address] CO2 [Moles/Vol] 36.0 mmol/L High 21.0-31.0 [facility] Comment on above: Performed By: #### B MP #### [address] Creatinine [Mass/Vol] 1.11 mg/dL Normal 0.70-1.30 [facility] Comment on above: Performed By: #### B MP #### [address] Creatinine Clr Calc Pharmacy 79.67 Normal [facility] Comment on above: Performed By: #### B MP #### [address] GFR/1.73 sq M.predicted MDRD (S/P/Bld) [Vol rate/Area] mL/min/{1.73_m2} Normal [facility] Comment on above: Performed By: #### B MP #### [address] Glucose [Mass/Vol] 103 mg/dL High 70-100 [facility] Comment on above: Result Comment: [place] Glucose Reference Range is dependent on time and content of last meal. Glucose of more than 200 mg/dL in a nonstressed, ambulatory subject supports the diagnosis of Diabetes Mellitus. ADA recommended reference range Performed By: #### B MP #### [address] Potassium [Moles/Vol] 3.5 mmol/L Normal 3.5-5.1 [facility] Comment on above: Performed By: #### B MP #### [address] Sodium [Moles/Vol] 144 mmol/L Normal 136-145 [facility] Comment on above: Performed By: #### B MP #### [address] Urea nitrogen [Mass/Vol] 32 mg/dL High 7-25 [facility] Comment on above: Performed By: #### B MP #### [address] Clostridioides difficile tox in B tcdB gene [Presence] in Stool by JAYDE with probe deteOrdered By: Suraj Razo on 05-19-2023 C. difficile toxin B tcdB gene JAYDE+probe Ql (Stl) Negative Negative [facility] Comment on above: Testing performed by RT-PCR Clostridium Difficileon 04-22 Clostridium Difficile Negative Normal Negative [facility] Comment on above: Order Comment: > or = to 3 loose/watery stools in the last 24 HRS? Y Is patient on promotility agents or tube feeding? N Result Comment: Test ing performed by RT-PCR PERFORMED BY: [place] [address] PATHOLOGIST MANAGER APPOINTMENT GINA CARDONA M.D. Performed By: #### C DT ####[place] [id number] [facility] Complete Blood Count Auto Di ffon 05-19-2023 Basophils (Bld) [#/Vol] 0.0 10*3/uL Normal 0.0-0.2 [facility] Comment on above: Result Comment: PERF ORMED BY: [place] [address] PATHOLOGIST MANAGER APPOINTMENT GINA CARDONA M.D. Performed By: #### C BC ####[address] Basophils/100 WBC (Bld) 0.4 % Normal . [facility] Comment on above: Performed By: #### C BC ####[address] Eosinophils (Bld) [#/Vol] 0.7 10*3/uL High 0.0-0.45 [facility] Comment on above: Performed By: #### C BC ####[address] Eosinophils/100 WBC (Bld) 13.8 % Normal . [facility] Comment on above: Performed By: #### C BC ####[address] Erythrocyte distribution width (RBC) [Ratio] 18.4 % High 12.0-14.8 [facility] Comment on above: Performed By: #### C BC ####[address] Hematocrit (Bld) [Volume fraction] 37.3 % Low 38.8-50.0 [facility] Comment on above: Performed By: #### C BC ####[address] Hemoglobin (Bld) [Mass/Vol] 12.2 g/dL Low 13.0-17.0 [facility] Comment on above: Performed By: #### C BC ####[address] Lymphocytes (Bld) [#/Vol] 1.1 10*3/uL Normal 1.00-4.8 [facility] Comment on above: Performed By: #### C BC ####[address] Lymphocytes/100 WBC (Bld) 22.1 % Normal . [facility] Comment on above: Performed By: #### C BC ####[address] MCH (RBC) [Entitic mass] 27.9 pg Normal 27.5-35.2 [facility] Comment on above: Performed By: #### C BC ####[place] [address] [place] MCV (RBC) [Entitic vol] 85.2 fL Normal 83.5-101 [facility] Comment on above: Performed By: #### C BC ####[address] Mean Corpuscular HGB Conc 32.8 g/dL Normal 32.5-35.6 [facility] Comment on above: Performed By: #### C BC ####[address] Monocytes (Bld) [#/Vol] 0.5 10*3/uL Normal 0.0-0.8 [facility] Comment on above: Performed By: #### C BC ####[address] Monocytes/100 WBC (Bld) 10.0 % Normal . [facility] Comment on above: Performed By: #### C BC ####[address] Neutrophils (Bld) [#/Vol] 2.7 10*3/uL Normal 1.8-7.7 [facility] Comment on above: Performed By: #### C BC ####[address] Neutrophils/100 WBC (Bld) 53.7 % Normal . [facility] Comment on above: Performed By: #### C BC ####[address] NRBC% 0.2 /100{WBC} Normal 0-0.5 [facility] Comment on above: Performed By: #### C BC ####[address] Platelet mean volume (Bld) [Entitic vol] 8.4 fL Normal 6.6-10.1 [facility] Comment on above: Performed By: #### C BC ####[address] Platelets (Bld) [#/Vol] 125 10*3/uL Low 150-450 [facility] Comment on above: Performed By: #### C BC ####[address] RBC (Bld) [#/Vol] 4.37 10*6/uL Normal 3.90-5.60 [facility] Comment on above: Performed By: #### C BC ####[address] WBC (Bld) [#/Vol] 5.1 10*3/uL Normal 4.1-10.5 [facility] Comment on above: Performed By: #### C BC ####[address] Magnesium [Mass/volume] in [place] or PlasmaOrdered By: Suraj Razo on 05-19-2023 Magnesium [Mass/Vol] 2.0 mg/dL Normal 1.9-2.7 [facility] Comment on above: Result Comment: PERF ORMED BY: [place] [address] PATHOLOGIST MANAGER APPOINTMENT GINA CARDONA M.D. Performed By: #### B MP #### [address] Complete Blood Count Auto Di ffon 05-18-2023 Basophils (Bld) [#/Vol] 0.0 10*3/uL Normal 0.0-0.2 [facility] Comment on above: Result Comment: PERF ORMED BY: [place] [address] PATHOLOGIST MANAGER APPOINTMENT GINA CARDONA M.D. Performed By: #### G LULS #### Point of Care testing , Basophils/100 WBC (Bld) 0.6 % Normal . [facility] Comment on above: Performed By: #### G LULS #### Point of Care testing , Eosinophils (Bld) [#/Vol] 0.8 10*3/uL High 0.0-0.45 [facility] Comment on above: Performed By: #### G LULS #### Point of Care testing , Eosinophils/100 WBC (Bld) 17.2 % Normal . [facility] Comment on above: Performed By: #### G LULS #### Point of Care testing , Erythrocyte distribution width (RBC) [Ratio] 18.0 % High 12.0-14.8 [facility] Comment on above: Performed By: #### G LULS #### Point of Care testing , Hematocrit (Bld) [Volume fraction] 38.5 % Low 38.8-50.0 [facility] Comment on above: Performed By: #### G LULS #### Point of Care testing , Hemoglobin (Bld) [Mass/Vol] 12.7 g/dL Low 13.0-17.0 [facility] Comment on above: Performed By: #### G LULS #### Point of Care testing , Lymphocytes (Bld) [#/Vol] 1.0 10*3/uL Normal 1.00-4.8 [facility] Comment on above: Performed By: #### G LULS #### Point of Care testing , Lymphocytes/100 WBC (Bld) 21.2 % Normal . [facility] Comment on above: Performed By: #### G LULS #### Point of Care testing , MCH (RBC) [Entitic mass] 28.0 pg Normal 27.5-35.2 [facility] Comment on above: Performed By: #### G LULS #### Point of Care testing , MCV (RBC) [Entitic vol] 85.0 fL Normal 83.5-101 [facility] Comment on above: Performed By: #### G LULS #### Point of Care testing , Mean Corpuscular HGB Conc 33.0 g/dL Normal 32.5-35.6 [facility] Comment on above: Performed By: #### G LULS #### Point of Care testing , Monocytes (Bld) [#/Vol] 0.4 10*3/uL Normal 0.0-0.8 [facility] Comment on above: Performed By: #### G LULS #### Point of Care testing , Monocytes/100 WBC (Bld) 9.6 % Normal . [facility] Comment on above: Performed By: #### G LULS #### Point of Care testing , Neutrophils (Bld) [#/Vol] 2.3 10*3/uL Normal 1.8-7.7 [facility] Comment on above: Performed By: #### G LULS #### Point of Care testing , Neutrophils/100 WBC (Bld) 51.4 % Normal . [facility] Comment on above: Performed By: #### G LULS #### Point of Care testing , NRBC% 0.3 /100{WBC} Normal 0-0.5 [facility] Comment on above: Performed By: #### G LULS #### Point of Care testing , Platelet mean volume (Bld) [Entitic vol] 8.7 fL Normal 6.6-10.1 [facility] Comment on above: Performed By: #### G LULS #### Point of Care testing , Platelets (Bld) [#/Vol] 131 10*3/uL Low 150-450 [facility] Comment on above: Performed By: #### G LULS #### Point of Care testing , RBC (Bld) [#/Vol] 4.53 10*6/uL Normal 3.90-5.60 [facility] Comment on above: Performed By: #### G LULS #### Point of Care testing , WBC (Bld) [#/Vol] 4.5 10*3/uL Normal 4.1-10.5 [facility] Comment on above: Performed By: #### G LULS #### Point of Care testing , Basic Metabolic Panelon 04-22 Anion gap [Moles/Vol] 1.7 mmol/L Low 6.0-15.0 [facility] Comment on above: Performed By: #### B MP, CBC, MG ####[facility] [id number] [place] [id number] [facility] Calcium [Mass/Vol] 8.3 mg/dL Low 8.6-10.3 [facility] Comment on above: Performed By: #### B MP, CBC, MG ####[address] Chloride [Moles/Vol] 105 mmol/L Normal 98-107 [facility] Comment on above: Performed By: #### B MP, CBC, MG ####[place] [id number] [facility] CO2 [Moles/Vol] 37.9 mmol/L High 21.0-31.0 [facility] Comment on above: Performed By: #### B MP, CBC, MG ####[place] [id number] [address] Creatinine [Mass/Vol] 1.06 mg/dL Normal 0.70-1.30 [facility] Comment on above: Performed By: #### B MP, CBC, MG ####[address] Creatinine Clr Calc Pharmacy 83.01 Normal [facility] Comment on above: Performed By: #### B MP, CBC, MG ####[place] [id number] [place] GFR/1.73 sq M.predicted MDRD (S/P/Bld) [Vol rate/Area] mL/min/{1.73_m2} Normal [facility] Comment on above: Performed By: #### B MP, CBC, MG ####[address] Glucose [Mass/Vol] 89 mg/dL Normal 70-100 [facility] Comment on above: Result Comment: [place] Glucose Reference Range is dependent on time and content of last meal. Glucose of more than 200 mg/dL in a nonstressed, ambulatory subject supports the diagnosis of Diabetes Mellitus. ADA recommended reference range Performed By: #### B MP, CBC, MG ####[place] [id number] [address] Potassium [Moles/Vol] 3.6 mmol/L Normal 3.5-5.1 [facility] Comment on above: Performed By: #### B MP, CBC, MG ####[place] [address] [place] [id number] [facility] Sodium [Moles/Vol] 141 mmol/L Normal 136-145 [facility] Comment on above: Performed By: #### B MP, CBC, MG ####[facility] [place] [id number] [facility] Urea nitrogen [Mass/Vol] 40 mg/dL High 7-25 [facility] Comment on above: Performed By: #### B MP, CBC, MG ####[place] [address] [place] [id number] [facility] Capillary blood glucose cheo urement by glucometer (mass/volume)Ordered By: Suraj Razo on 05-17-2023 Glucose [Mass/Vol] 107 mg/dL Normal [facility] Comment on above: [place] Glucose Refer ence Range is dependent on time and content of last meal. Glucose of more than 200 mg/dL in a nonstressed, ambulatory subject supports the diagnosis of Diabetes Mellitus. Result Comment: [place] Glucose Reference Range is dependent on time and content of last meal. Glucose of more than 200 mg/dL in a nonstressed, ambulatory subject supports the diagnosis of Diabetes Mellitus. PERFORMED BY: [facility] [address] [place] [id number] PATHOLOGIST MANAGER APPOINTMENT GINA CARDONA M.D. Performed By: #### G ANASTASIIA ####Point of Care testing, Complete Blood Count Auto Di ffon 05-17-2023 Basophils (Bld) [#/Vol] 0.0 10*3/uL Normal 0.0-0.2 [facility] Comment on above: Result Comment: PERF ORMED BY: [facility] [address] [place] [id number] PATHOLOGIST MANAGER APPOINTMENT GINA CARDONA M.D. Performed By: #### B MP, CBC, MG ####[place] [address] [place] [id number] [facility] Basophils/100 WBC (Bld) 0.3 % Normal . [facility] Comment on above: Performed By: #### B MP, CBC, MG ####[address] Eosinophils (Bld) [#/Vol] 0.3 10*3/uL Normal 0.0-0.45 [facility] Comment on above: Performed By: #### B MP, CBC, MG ####[address] Eosinophils/100 WBC (Bld) 7.1 % Normal . [facility] Comment on above: Performed By: #### B MP, CBC, MG ####[address] Erythrocyte distribution width (RBC) [Ratio] 18.3 % High 12.0-14.8 [facility] Comment on above: Performed By: #### B MP, CBC, MG ####[address] Hematocrit (Bld) [Volume fraction] 36.8 % Low 38.8-50.0 [facility] Comment on above: Performed By: #### B MP, CBC, MG ####[address] Hemoglobin (Bld) [Mass/Vol] 12.3 g/dL Low 13.0-17.0 [facility] Comment on above: Performed By: #### B MP, CBC, MG ####[address] Lymphocytes (Bld) [#/Vol] 0.6 10*3/uL Low 1.00-4.8 [facility] Comment on above: Performed By: #### B MP, CBC, MG ####[address] Lymphocytes/100 WBC (Bld) 12.6 % Normal . [facility] Comment on above: Performed By: #### B MP, CBC, MG ####[address] MCH (RBC) [Entitic mass] 28.1 pg Normal 27.5-35.2 [facility] Comment on above: Performed By: #### B MP, CBC, MG ####[address] MCV (RBC) [Entitic vol] 84.1 fL Normal 83.5-101 [facility] Comment on above: Performed By: #### B MP, CBC, MG ####[address] Mean Corpuscular HGB Conc 33.4 g/dL Normal 32.5-35.6 [facility] Comment on above: Performed By: #### B MP, CBC, MG ####[address] Monocytes (Bld) [#/Vol] 0.3 10*3/uL Normal 0.0-0.8 [facility] Comment on above: Performed By: #### B MP, CBC, MG ####[address] Monocytes/100 WBC (Bld) 7.6 % Normal . [facility] Comment on above: Performed By: #### B MP, CBC, MG ####[address] Neutrophils (Bld) [#/Vol] 3.2 10*3/uL Normal 1.8-7.7 [facility] Comment on above: Performed By: #### B MP, CBC, MG ####[address] Neutrophils/100 WBC (Bld) 72.4 % Normal . [facility] Comment on above: Performed By: #### B MP, CBC, MG ####[address] NRBC% 0.5 /100{WBC} Normal 0-0.5 [facility] Comment on above: Performed By: #### B MP, CBC, MG ####[address] Platelet mean volume (Bld) [Entitic vol] 8.6 fL Normal 6.6-10.1 [facility] Comment on above: Performed By: #### B MP, CBC, MG ####[address] Platelets (Bld) [#/Vol] 109 10*3/uL Low 150-450 [facility] Comment on above: Performed By: #### B MP, CBC, MG ####[address] RBC (Bld) [#/Vol] 4.38 10*6/uL Normal 3.90-5.60 [facility] Comment on above: Performed By: #### B MP, CBC, MG ####[address] WBC (Bld) [#/Vol] 4.5 10*3/uL Normal 4.1-10.5 [facility] Comment on above: Performed By: #### B MP, CBC, MG ####[address] Magnesiumon 05-17-2023 Magnesium [Mass/Vol] 2.2 mg/dL Normal 1.9-2.7 [facility] Comment on above: Result Comment: PERF ORMED BY: [facility] [address] [place] [address] PATHOLOGIST MANAGER APPOINTMENT GINA CARDONA M.D. Performed By: #### B MP, CBC, MG ####[address] Automated erythrocytes count in urine sediment (number/area)Ordered By: Donita Armstrong on 05-16-2023 RBC Auto (Urine sed) [#/Area] 1-2 [HPF] 0-4 [facility] Automated leukocytes count i n urine sediment (number/area)Ordered By: Donita Armstrong on 05-16-2023 WBC Auto (Urine sed) [#/Area] 1-2 [HPF] 0-4 [facility] Automated urine color determ inationOrdered By: Donita Armstrong on 05-16-2023 Color (U) Yellow Normal Yellow [facility] Comment on above: Order Comment: Name Collection Type:: Harrell Catheter Performed By: #### G ANASTASIIA #### Point of Care testing , Automated urine sediment nabila cium oxalate crystal count by microscopy (number/high powOrdered By: Donita Armstrong on 05-16-2023 Calcium oxalate crystals LM.HPF (Urine sed) [#/Area] 1+ [HPF] [facility] Bacterial blood cultureOrder ed By: Donita Armstrong on 05-16-2023 Bacteria identified Cx Nom (Bld) NO GROWTH 5 DAYS [facility] Bacteria identified Cx Nom (Bld) Staphylococcus sp coag neg [facility] Basic Metabolic Panelon 04-22 Anion gap [Moles/Vol] 3.6 mmol/L Low 6.0-15.0 [facility] Comment on above: Performed By: #### B MP #### [place] [address] [place] Calcium [Mass/Vol] 8.6 mg/dL Normal 8.6-10.3 [facility] Comment on above: Performed By: #### B MP #### [place] [address] [place] Chloride [Moles/Vol] 101 mmol/L Normal 98-107 [facility] Comment on above: Performed By: #### B MP #### [place] [address] [place] CO2 [Moles/Vol] 38.1 mmol/L High 21.0-31.0 [facility] Comment on above: Performed By: #### B MP #### [place] [address] [place] Creatinine [Mass/Vol] 1.22 mg/dL Normal 0.70-1.30 [facility] Comment on above: Performed By: #### B MP #### [place] [address] [place] Creatinine Clr Calc Pharmacy 72.13 Normal [facility] Comment on above: Result Comment: PERF ORMED BY: [place] [address] PATHOLOGIST MANAGER APPOINTMENT GINA CARDONA M.D. Performed By: #### B MP #### [place] [address] [place] GFR/1.73 sq M.predicted MDRD (S/P/Bld) [Vol rate/Area] mL/min/{1.73_m2} Normal [facility] Comment on above: Performed By: #### B MP #### [address] Glucose [Mass/Vol] 91 mg/dL Normal 70-100 [facility] Comment on above: Result Comment: [facility] Glucose Reference Range is dependent on time and content of last meal. Glucose of more than 200 mg/dL in a nonstressed, ambulatory subject supports the diagnosis of Diabetes Mellitus. ADA recommended reference range Performed By: #### B MP #### [address] Potassium [Moles/Vol] 3.7 mmol/L Normal 3.5-5.1 [facility] Comment on above: Performed By: #### B MP #### [place] [address] [place] Sodium [Moles/Vol] 139 mmol/L Normal 136-145 [facility] Comment on above: Performed By: #### B MP #### [address] Urea nitrogen [Mass/Vol] 35 mg/dL High 7-25 [facility] Comment on above: Performed By: #### B MP #### [address] Bilirubin Test strip Ql (U)O rdered By: Donita Armstrong on 05-16-2023 Bilirubin Ql (U) Negative Negative [facility] Blood Cultureon 05-16-2023 Bacteria identified [...] Trimethoprim/Sulfamethoxaz ole S <0.5 Vancomycin S 1 [employer] BCID Panel results called at 1809 on [...] culture Not detected Group A (Streptococcus pyogenes) [id number] Not detected Group B Strep (Streptococcus agalactiae) [...] indicate an (more content not included)... Normal [facility] Comment on above: Performed By: #### C UBLD ####[facility] [id number] [place] [address] [facility] Bacteria identified Cx Nom (Bld) NO GROWTH 5 DAYS PERFORMED BY: [facility] [address] [place] [address] PATHOLOGIST MANAGER APPOINTMENT GINA CARDONA M.D. Normal [facility] Comment on above: Performed By: #### C UBLD ####[address] Complete Blood Count Auto Di ffon 05-16-2023 Basophils (Bld) [#/Vol] 0.0 10*3/uL Normal 0.0-0.2 [facility] Comment on above: Result Comment: PERF ORMED BY: [facility] [address] [place] [address] PATHOLOGIST MANAGER APPOINTMENT GINA CARDONA M.D. Performed By: #### C BC ####[address] Basophils/100 WBC (Bld) 0.3 % Normal . [facility] Comment on above: Performed By: #### C BC ####[address] Eosinophils (Bld) [#/Vol] 0.2 10*3/uL Normal 0.0-0.45 [facility] Comment on above: Performed By: #### C BC ####[address] Eosinophils/100 WBC (Bld) 4.2 % Normal . [facility] Comment on above: Performed By: #### C BC ####[address] Erythrocyte distribution width (RBC) [Ratio] 18.3 % High 12.0-14.8 [facility] Comment on above: Performed By: #### C BC ####[address] Hematocrit (Bld) [Volume fraction] 39.8 % Normal 38.8-50.0 [facility] Comment on above: Performed By: #### C BC ####[address] Hemoglobin (Bld) [Mass/Vol] 13.0 g/dL Normal 13.0-17.0 [facility] Comment on above: Performed By: #### C BC ####[address] Lymphocytes (Bld) [#/Vol] 0.4 10*3/uL Low 1.00-4.8 [facility] Comment on above: Performed By: #### C BC ####[address] Lymphocytes/100 WBC (Bld) 7.8 % Normal . [facility] Comment on above: Performed By: #### C BC ####[address] MCH (RBC) [Entitic mass] 27.7 pg Normal 27.5-35.2 [facility] Comment on above: Performed By: #### C BC ####[address] MCV (RBC) [Entitic vol] 84.7 fL Normal 83.5-101 [facility] Comment on above: Performed By: #### C BC ####[address] Mean Corpuscular HGB Conc 32.7 g/dL Normal 32.5-35.6 [facility] Comment on above: Performed By: #### C BC ####[address] Monocytes (Bld) [#/Vol] 0.3 10*3/uL Normal 0.0-0.8 [facility] Comment on above: Performed By: #### C BC ####[address] Monocytes/100 WBC (Bld) 5.0 % Normal . [facility] Comment on above: Performed By: #### C BC ####[address] Neutrophils (Bld) [#/Vol] 4.4 10*3/uL Normal 1.8-7.7 [facility] Comment on above: Performed By: #### C BC ####[address] [address] [facility] Neutrophils/100 WBC (Bld) 82.7 % Normal . [facility] Comment on above: Performed By: #### C BC ####[address] [address] [facility] NRBC% 0.5 /100{WBC} Normal 0-0.5 [facility] [facility] Comment on above: Performed By: #### C BC ####[address] [address] [facility] Platelet mean volume (Bld) [Entitic vol] 9.3 fL Normal 6.6-10.1 [facility] Comment on above: Performed By: #### C BC ####[place] [id number] [facility] Platelets (Bld) [#/Vol] 114 10*3/uL Low 150-450 [facility] Comment on above: Performed By: #### C BC ####[place] [id number] [facility] RBC (Bld) [#/Vol] 4.70 10*6/uL Normal 3.90-5.60 [facility] Comment on above: Performed By: #### C BC ####[place] [id number] [facility] WBC (Bld) [#/Vol] 5.4 10*3/uL Normal 4.1-10.5 [facility] Comment on above: Performed By: #### C BC ####[place] [id number] [facility] Creatine kinase [Enzymatic a ctivity/volume] in Serum or PlasmaOrdered By: Jamel Packer on 05-16-2023 CK [Catalytic activity/Vol] 175 U/L Normal 30-223 [facility] Comment on above: Order Comment: HEATHER Harkins tified AB 1445 Result Comment: PERF ORMED BY: [facility] [address] [place] [id number] PATHOLOGIST MANAGER APPOINTMENT GINA CARDONA M.D. Performed By: #### G LULS #### Point of Care testing , Dipstick and Microscopicon 0 05-16-2023 Appearance (U) Clear Normal Clear [facility] Comment on above: Order Comment: Name Collection Type:: Harrell Catheter Performed By: #### G LULS #### Point of Care testing , Bacteria,Urine None Seen Normal None Seen [facility] Comment on above: Order Comment: Name Collection Type:: Harrell Catheter Performed By: #### G LULS #### Point of Care testing , Bilirubin,Urine Negative Normal Negative [facility] Comment on above: Order Comment: Name Collection Type:: Harrell Catheter Performed By: #### G LULS #### Point of Care testing , Calcium Oxalate Crystals,Urine 1+ Normal [facility] Comment on above: Order Comment: Name Collection Type:: Harrell Catheter Performed By: #### G LULS #### Point of Care testing , Glucose Ql (U) Normal Normal Normal [facility] Comment on above: Order Comment: Name Collection Type:: Harrell Catheter Performed By: #### G LULS #### Point of Care testing , Hyaline Casts,Urine 9-19 High 0-8 [facility] Comment on above: Order Comment: Name Collection Type:: Harrell Catheter Performed By: #### G LULS #### Point of Care testing , Ketones Ql (U) Negative Normal Negative [facility] Comment on above: Order Comment: Name Collection Type:: Harrell Catheter Performed By: #### G LULS #### Point of Care testing , Leukocyte esterase Test strip Ql (U) 1+ High Negative [facility] Comment on above: Order Comment: Name Collection Type:: Harrell Catheter Performed By: #### G LULS #### Point of Care testing , Nitrite,Urine Negative Normal Negative [facility] Comment on above: Order Comment: Name Collection Type:: Harrell Catheter Performed By: #### G LULS #### Point of Care testing , Occult Blood,Urine Negative Normal Negative [facility] Comment on above: Order Comment: Name Collection Type:: Harrell Catheter Result Comment: PERF ORMED BY: [place] [address] PATHOLOGIST MANAGER APPOINTMENT GINA CARDONA M.D. Performed By: #### G LULS #### Point of Care testing , RBC,Urine 1-2 Normal 0-4 [facility] Comment on above: Order Comment: Name Collection Type:: Harrell Catheter Performed By: #### G LULS #### Point of Care testing , Specificy Wright,Urine 1.026 Normal 1.001-1.03 0 [facility] Comment on above: Order Comment: Name Collection Type:: Harrell Catheter Performed By: #### G LULS #### Point of Care testing , Squamous Epithelial Cell,Urine 0-1 Normal 0-2 [facility] Comment on above: Order Comment: Name Collection Type:: Harrell Catheter Performed By: #### G LULS #### Point of Care testing , Urobilinogen,Urine Normal Normal Normal [facility] Comment on above: Order Comment: Name Collection Type:: Harrell Catheter Performed By: #### G LULS #### Point of Care testing , WBC,Urine 1-2 Normal 0-4 [facility] Comment on above: Order Comment: Name Collection Type:: Harrell Catheter Performed By: #### G LULS #### Point of Care testing , Yeast,Urine None Seen Normal None Seen [facility] Comment on above: Order Comment: Name Collection Type:: Harrell Catheter Result Comment: PERF ORMED BY: [address] [address] PATHOLOGIST MANAGER APPOINTMENT GINA CARDONA M.D. Performed By: #### G LULS #### Point of Care testing , ECG 12 lead ECGon 05-16-2023 ECG 12 lead ECG [facility] Main [address] [address] Electrocardiograph Report Signed Patient: Taurus Garcia MR#: [id number] : 1945 Acct:[id number] Age/Sex: 77 / M ADM Date: 05/10/23 Loc: Room: [address] [place] [address] Type: DIS IN Attending Dr: Chau Lara [...] in Anterior leads Confirmed by MARIBEL BRIDGES [facility] ([id number]) on 05/22/2023 5:36:00 PM Referred By: Electronically Signed By:BALDO GOMES MD [facility] Transcribed By: MUS Signed By Baltazar Gomes MD 05/22/23 1736 Normal [facility] echo transthoracicon [facility] echo transthoracic [facility] Main [place] [address] [place] [address] Echocardiogram Signed Patient: Taurus Garcia MR#: [id number] : 1945 Acct:[id number] Age/Sex: 77 / M ADM Date: 05/10/23 Loc: Room: [address] [place] [address] Type: ADM IN Attending Dr: Suraj Razo MD Ordering Provider: Donita Armstrong APRN, ACNP-BC Date of Service: 05/16/23 [facility] echo transthoracic: h/o afib.resp failure, [...] LV V1 VTI: 24.8 cm Transcribed By: SCV Performed At: 05/16/23 1317 Signed By: Lupe Roy MD 05/16/23 1706 Normal [facility] Glucose Poct Glucometerson 0 05-16-2023 Commemt1 Glu2: Cleaned Meter Normal [facility] Comment on above: Result Comment: PERF ORMED BY: [address] [place] [address] PATHOLOGIST MANAGER APPOINTMENT GNIA CARDONA M.D. Performed By: #### G LULS #### Point of Care testing , Glucose [Mass/Vol] 146 mg/dL Normal [facility] Comment on above: Result Comment: [place] om Glucose Reference Range is dependent on time and content of last meal. Glucose of more than 200 mg/dL in a nonstressed, ambulatory subject supports the diagnosis of Diabetes Mellitus. Performed By: #### G LULS #### Point of Care testing , Commemt1 Glu2: Cleaned Meter Normal [facility] Comment on above: Result Comment: PERF ORMED BY: [address] [place] [address] PATHOLOGIST MANAGER APPOINTMENT GINA CARDONA M.D. Performed By: #### G LULS #### Point of Care testing , Glucose [Mass/Vol] 165 mg/dL Normal [facility] Comment on above: Result Comment: [place] om Glucose Reference Range is dependent on time and content of last meal. Glucose of more than 200 mg/dL in a nonstressed, ambulatory subject supports the diagnosis of Diabetes Mellitus. Performed By: #### G LULS #### Point of Care testing , Glucose [Mass/Vol] 100 mg/dL Normal [facility] Comment on above: Result Comment: [place] om Glucose Reference Range is dependent on time and content of last meal. Glucose of more than 200 mg/dL in a nonstressed, ambulatory subject supports the diagnosis of Diabetes Mellitus. PERFORMED BY: [address] [place] [address] PATHOLOGIST MANAGER APPOINTMENT GINA CARDONA M.D. Performed By: #### G LULS ####Point of Care testing, Ketones Auto test strip (U) [Mass/Vol]Ordered By: Donita Armstrong on 05-16-2023 Ketones (U) [Mass/Vol] Negative Negative [facility] - UrinalysisOrder ed By: Donita Armstrong on 05-16-2023 Hyaline casts LM Ql (Urine sed) 9-19 [LPF] 0-8 [facility] Nitrite Test strip Ql (U)Ord ered By: Donita Patti on 05-16-2023 Nitrite Ql (U) Negative Negative [facility] No Panel InformationOrdered By: Suraj Razo on 05-16-2023 Bedside Glucose Comment Glu2: cleaned meter [facility] No Panel InformationOrdered By: Donita Armstrong on 05-16-2023 Bacterial ID (NA Multiplex Assay) [facility] Specific gravity Auto test s trip (U) [Rel density]Ordered By: Donita Armstrong on 05-16-2023 Specific gravity (U) [Rel density] 1.026 1.001-1.03 0 [facility] Squamous epithelial cells de tection in urine sediment by light microscopyOrdered By: Donita Armstrong on 05-16-2023 Epithelial cells.squamous LM Ql (Urine sed) 0-1 [HPF] 0-2 [facility] Thyrotropin [Units/volume] i n Serum or PlasmaOrdered By: Donita Armstrong on 05-16-2023 TSH Qn 1.50 m[IU]/L Normal 0.45-5.33 [facility] Comment on above: Order Comment: Comme nt please run off blood drawn this morning Result Comment: PERF ORMED BY: [address] [place] [address] PATHOLOGIST MANAGER APPOINTMENT GINA CARDONA M.D. Performed By: #### A BG #### Point of Care testing , Troponin I High Sensitivityo n 05-16-2023 Troponin I High Sensitivity 33.0 pg/mL High 0.0-20.0 [facility] Comment on above: Order Comment: Comme nt please run off blood drawn this morning Result Comment: PERF ORMED BY: [facility] [address] [place] [address] PATHOLOGIST MANAGER APPOINTMENT GINA CARDONA M.D. Performed By: #### G LULS #### Point of Care testing , Troponin I.cardiac [Mass/vol ume] in Serum or Plasma by Detection limit <= 0.01 ng/Ordered By: Donita Armstrong on 05-16-2023 Troponin I.cardiac DL <= 0.01 ng/mL [Mass/Vol] 33.0 pg/mL 0.0-20.0 [facility] Urine Cultureon 05-16-2023 Bacteria identified Cx Nom (U) No Growth 2 Days PERFORMED BY: [facility] [place] [address] PATHOLOGIST MANAGER APPOINTMENT GINA CARDONA M.D. Normal [facility] Comment on above: Performed By: #### G LULS #### Point of Care testing , Urine bacteria detection by automated methodOrdered By: Donita Armstrong on 05-16-2023 Bacteria Auto Ql (U) None seen None Seen [facility] Urine clarity by refractomet ry automatedOrdered By: Donita Armstrong on 05-16-2023 Clarity Refractometry automated (U) Clear Clear [facility] Urine culture routineOrdered By: Donita Armstrong on 05-16-2023 Bacteria identified Cx Nom (U) No Growth 2 Days [facility] Urine glucose measurement by automated test strip (mass/volume)Ordered By: Donita Armstrong on 05-16-2023 Glucose Auto test strip (U) [Mass/Vol] Normal mg/dL Normal [facility] Urine hemoglobin detection b y automated test stripOrdered By: Donita Armstrong on 05-16-2023 Hemoglobin Auto test strip Ql (U) Negative Negative [facility] Urine leukocyte esterase det ection by automated test stripOrdered By: Donita Armstrong on 05-16-2023 Leukocyte esterase Auto test strip Ql (U) 1+ Negative [facility] Urine pH measurement by auto mated test stripOrdered By: Donita Armstrong on 05-16-2023 pH (U) 5.5 [pH] Normal 5.0-9.0 [facility] Comment on above: Order Comment: Name Collection Type:: Harrell Catheter Performed By: #### G LULS #### Point of Care testing , Urine protein measurement by automated test strip (mass/volume)Ordered By: Donita Armstrong on 05-16-2023 Protein (U) [Mass/Vol] 30 mg/dL High Negative [facility] Comment on above: Order Comment: Name Collection Type:: Harrell Catheter Performed By: #### G ANASTASIIA #### Point of Care testing , Urobilinogen Auto test strip (U) [Mass/Vol]Ordered By: Donita Armstrong on 05-16-2023 Urobilinogen (U) [Mass/Vol] Normal mg/dL Normal [facility] Yeast detection in urine sed iment by light microscopyOrdered By: Donita Armstrong on 05-16-2023 Yeast LM Ql (Urine sed) None seen [HPF] None Seen [facility] Arterial Blood Gason 023 ABG Base Excess 9.2 mmol/L High -3.0-3.0 [facility] Comment on above: Performed By: #### A BG #### Point of Care testing , ABG Frac Inspired O2 35 % Normal [facility] Comment on above: Performed By: #### A BG #### Point of Care testing , ABG Oxygen Content 7.9 mmol/L Normal 6.6-9.7 [facility] Comment on above: Performed By: #### A BG #### Point of Care testing , ABG Oxygen Saturation 92.2 % Low 95.0-100.0 [facility] Comment on above: Performed By: #### A BG #### Point of Care testing , ABG PCO2 50.8 mm[Hg] Off scale high 35.0-45.0 [facility] Comment on above: Performed By: #### A BG #### Point of Care testing , ABG PEEP 5 Normal [facility] Comment on above: Performed By: #### A BG #### Point of Care testing , ABG PH 7.45 Normal 7.35-7.45 [facility] Comment on above: Performed By: #### A BG #### Point of Care testing , ABG PO2 60.0 mm[Hg] Low 80.0-100.0 [facility] Comment on above: Performed By: #### A BG #### Point of Care testing , ABG TV 500 mL Normal [facility] Comment on above: Performed By: #### A BG #### Point of Care testing , Respiratory Critical Normal [facility] Comment on above: Result Comment: Crit ical Value called on: 05/15/2023 at 05:57 PERFORMED BY: [place] [address] PATHOLOGIST MANAGER APPOINTMENT GINA CARDONA M.D. Performed By: #### A BG #### Point of Care testing , Set Respiratory Rate 10 Normal [facility] Comment on above: Performed By: #### A BG #### Point of Care testing , VBG Draw Site Right Radial Normal [facility] Comment on above: Performed By: #### A BG #### Point of Care testing , Ventilator Mode AC Normal [facility] Comment on above: Performed By: #### A BG #### Point of Care testing , Arterial Blood GasOrdered By : Eliezer Newell on 05-15-2023 CO2 [Moles/Vol] 36.3 mmol/L High 23.0-27.0 [facility] Comment on above: Performed By: #### A BG #### Point of Care testing , HCO3 (Bld) [Moles/Vol] 34.8 mmol/L High 23.0-29.0 [facility] Comment on above: Performed By: #### A BG #### Point of Care testing , Basic Metabolic Panelon 04-22 Anion gap [Moles/Vol] 8.1 mmol/L Normal 6.0-15.0 [facility] Comment on above: Performed By: #### A BG #### Point of Care testing , Calcium [Mass/Vol] 8.8 mg/dL Normal 8.6-10.3 [facility] Comment on above: Performed By: #### A BG #### Point of Care testing , Chloride [Moles/Vol] 103 mmol/L Normal 98-107 [facility] Comment on above: Performed By: #### A BG #### Point of Care testing , CO2 [Moles/Vol] 32.2 mmol/L High 21.0-31.0 [facility] Comment on above: Performed By: #### A BG #### Point of Care testing , Creatinine [Mass/Vol] 0.90 mg/dL Normal 0.70-1.30 [facility] Comment on above: Performed By: #### A BG #### Point of Care testing , Creatinine Clr Calc Pharmacy 97.54 Normal [facility] Comment on above: Result Comment: PERF ORMED BY: [facility] [place] [address] PATHOLOGIST MANAGER APPOINTMENT GINA CARDONA M.D. Performed By: #### A BG #### Point of Care testing , GFR/1.73 sq M.predicted MDRD (S/P/Bld) [Vol rate/Area] mL/min/{1.73_m2} Normal [facility] Comment on above: Performed By: #### A BG #### Point of Care testing , Glucose [Mass/Vol] 109 mg/dL High 70-100 [facility] Comment on above: Result Comment: [facility] Glucose Reference Range is dependent on time and content of last meal. Glucose of more than 200 mg/dL in a nonstressed, ambulatory subject supports the diagnosis of Diabetes Mellitus. ADA recommended reference range Performed By: #### A BG #### Point of Care testing , Potassium [Moles/Vol] 4.3 mmol/L Normal 3.5-5.1 [facility] Comment on above: Performed By: #### A BG #### Point of Care testing , Sodium [Moles/Vol] 139 mmol/L Normal 136-145 [facility] Comment on above: Performed By: #### A BG #### Point of Care testing , Urea nitrogen [Mass/Vol] 29 mg/dL High 7-25 [facility] Comment on above: Performed By: #### A BG #### Point of Care testing , Complete Blood Count Auto Di ffon 05-15-2023 Basophils (Bld) [#/Vol] 0.0 10*3/uL Normal 0.0-0.2 [facility] Comment on above: Result Comment: PERF ORMED BY: [place] [address] PATHOLOGIST MANAGER APPOINTMENT GINA CARDONA M.D. Performed By: #### G LULS #### Point of Care testing , Basophils/100 WBC (Bld) 0.3 % Normal . [facility] Comment on above: Performed By: #### G LULS #### Point of Care testing , Eosinophils (Bld) [#/Vol] 0.6 10*3/uL High 0.0-0.45 [facility] Comment on above: Performed By: #### G LULS #### Point of Care testing , Eosinophils/100 WBC (Bld) 6.3 % Normal . [facility] Comment on above: Performed By: #### G LULS #### Point of Care testing , Erythrocyte distribution width (RBC) [Ratio] 18.8 % High 12.0-14.8 [facility] Comment on above: Performed By: #### G LULS #### Point of Care testing , Hematocrit (Bld) [Volume fraction] 41.7 % Normal 38.8-50.0 [facility] Comment on above: Performed By: #### G LULS #### Point of Care testing , Hemoglobin (Bld) [Mass/Vol] 13.7 g/dL Normal 13.0-17.0 [facility] Comment on above: Performed By: #### G LULS #### Point of Care testing , Lymphocytes (Bld) [#/Vol] 0.9 10*3/uL Low 1.00-4.8 [facility] Comment on above: Performed By: #### G LULS #### Point of Care testing , Lymphocytes/100 WBC (Bld) 10.1 % Normal . [facility] Comment on above: Performed By: #### G LULS #### Point of Care testing , MCH (RBC) [Entitic mass] 28.0 pg Normal 27.5-35.2 [facility] Comment on above: Performed By: #### G LULS #### Point of Care testing , MCV (RBC) [Entitic vol] 85.1 fL Normal 83.5-101 [facility] Comment on above: Performed By: #### G LULS #### Point of Care testing , Mean Corpuscular HGB Conc 32.9 g/dL Normal 32.5-35.6 [facility] Comment on above: Performed By: #### G LULS #### Point of Care testing , Monocytes (Bld) [#/Vol] 0.5 10*3/uL Normal 0.0-0.8 [facility] Comment on above: Performed By: #### G LULS #### Point of Care testing , Monocytes/100 WBC (Bld) 5.6 % Normal . [facility] Comment on above: Performed By: #### G LULS #### Point of Care testing , Neutrophils (Bld) [#/Vol] 7.3 10*3/uL Normal 1.8-7.7 [facility] Comment on above: Performed By: #### G LULS #### Point of Care testing , Neutrophils/100 WBC (Bld) 77.7 % Normal . [facility] Comment on above: Performed By: #### G LULS #### Point of Care testing , NRBC% 0.7 /100{WBC} High 0-0.5 [facility] Comment on above: Performed By: #### G LULS #### Point of Care testing , Platelet mean volume (Bld) [Entitic vol] 8.9 fL Normal 6.6-10.1 [facility] Comment on above: Performed By: #### G LULS #### Point of Care testing , Platelets (Bld) [#/Vol] 106 10*3/uL Low 150-450 [facility] Comment on above: Performed By: #### G LULS #### Point of Care testing , RBC (Bld) [#/Vol] 4.90 10*6/uL Normal 3.90-5.60 [facility] Comment on above: Performed By: #### G LULS #### Point of Care testing , WBC (Bld) [#/Vol] 9.4 10*3/uL Normal 4.1-10.5 [facility] Comment on above: Performed By: #### G LULS #### Point of Care testing , ECG 12 lead ECGon 05-15-2023 ECG 12 lead ECG [facility] Main [place] [id number] Electrocardiograph Report Signed Patient: Taurus Garcia MR#: [id number] : 1945 Acct:[id number] Age/Sex: 77 / M ADM Date: 05/10/23 Loc: Room: [address] [place] [address] Type: DIS IN Attending Dr: Chau Lara [...] now evident in Anterolateral leads Confirmed by BALDO GOMES MD, FACC ([id number]) on 05/22/2023 5:35:56 PM Referred By: Electronically Signed By:BALDO GOMES MD [facility] Transcribed By: MUS Signed By Baltazar Gomes MD 05/22/23 1735 Normal [facility] Glucose Poct Glucometerson 0 05-15-2023 Glucose [Mass/Vol] 146 mg/dL Normal [facility] Comment on above: Result Comment: [place] Glucose Reference Range is dependent on time and content of last meal. Glucose of more than 200 mg/dL in a nonstressed, ambulatory subject supports the diagnosis of Diabetes Mellitus. PERFORMED BY: [place] [id number] PATHOLOGIST MANAGER APPOINTMENT GINA CARDONA M.D. Performed By: #### G LULS ####Point of Care testing, Glucose [Mass/Vol] 152 mg/dL Normal [facility] Comment on above: Result Comment: [facility] Glucose Reference Range is dependent on time and content of last meal. Glucose of more than 200 mg/dL in a nonstressed, ambulatory subject supports the diagnosis of Diabetes Mellitus. PERFORMED BY: [place] [id number] PATHOLOGIST MANAGER APPOINTMENT GINA CARDONA M.D. Performed By: #### G LULS ####Point of Care testing, Glucose [Mass/Vol] 103 mg/dL Normal [facility] Comment on above: Result Comment: [facility] Glucose Reference Range is dependent on time and content of last meal. Glucose of more than 200 mg/dL in a nonstressed, ambulatory subject supports the diagnosis of Diabetes Mellitus. PERFORMED BY: [place] [address] PATHOLOGIST MANAGER APPOINTMENT GINA CARDONA M.D. Performed By: #### G LULS #### Point of Care testing , Magnesiumon 05-15-2023 Magnesium [Mass/Vol] 1.9 mg/dL Normal 1.9-2.7 [facility] Comment on above: Result Comment: PERF ORMED BY: [place] [id number] PATHOLOGIST MANAGER APPOINTMENT GINA CARDONA M.D. Performed By: #### M G, K ####[address] [address] [facility] Magnesium [Mass/Vol] 2.0 mg/dL Normal 1.9-2.7 [facility] Comment on above: Order Comment: Comme nt Please run off blood drawn this morning Result Comment: PERF ORMED BY: [place] [id number] PATHOLOGIST MANAGER APPOINTMENT GINA CARDONA M.D. Performed By: #### A BG #### Point of Care testing , No Panel InformationOrdered By: Eliezer Newell on 05-15-2023 Arterial Blood Base Excess 9.2 mmol/L -3.0-3.0 [facility] Arterial Blood Oxygen Content 7.9 mmol/L 6.6-9.7 [facility] Arterial Blood Oxygen Saturation 92.2 % 95.0-100.0 [facility] Arterial Blood Partial Pressure CO2 50.8 mm[Hg] 35.0-45.0 [facility] Arterial Blood Partial Pressure O2 60.0 mm[Hg] 80.0-100.0 [facility] Arterial Blood pH 7.45 7.35-7.45 [facility] Blood Gas Critical Value See comment [facility] Comment on above: Critical Value humphries d on: 05/15/2023 at 05:57 Blood Gas PEEP 5 cmH2O [facility] Blood Gas Sample Site Right radial [facility] Blood Gas Set Respiration Rate 10 [facility] Blood Gas Tidal Volume 500 mL Fi [facility] Blood Gas Ventilator Mode Ac [facility] FiO2 35 % [facility] Potassiumon 05-15-2023 Potassium [Moles/Vol] 4.0 mmol/L Normal 3.5-5.1 [facility] Comment on above: Performed By: #### M Hannah K ####[facility] [id number] Triglyceride [Mass/volume] i n Serum or PlasmaOrdered By: Lexy Chappell on 05-15-2023 Triglyceride [Mass/Vol] 224 mg/dL High 35-149 [facility] Comment on above: TRIG ATP III CLASSIF ICATIONTRIG less than 150 mg/dL NormalTRIG 150-199 mg/dL Borderline highTRIG 200-500 mg/dL High TRIG greater than 500 mg/dL Very highStandard traceable to the Center for Disease Conrtrol and Prevention (CDC) test method. Result Comment: TRIG ATP III CLASSIFICATION TRIG less than 150 mg/dL Normal TRIG 150-199 mg/dL Borderline high TRIG 200-500 mg/dL High TRIG greater than 500 mg/dL Very high Standard traceable to the Center for Disease Conrtrol and Prevention (CDC) test method. PERFORMED BY: [facility] [address] [place] [address] PATHOLOGIST MANAGER APPOINTMENT GINA CARDONA M.D. Performed By: #### T RIG ####[facility] [address] [place] [id number] [facility] XR chest 1V portableon 05-15 XR chest 1V portable [facility] Main [place] [address] [place] [address] XRay Report Signed Patient: Taurus Garcia MR#: [id number] : 1945 Acct:[id number] Age/Sex: 77 / M ADM Date: 05/10/23 Loc: Room: [address] [place] [address] Type: ADM IN Attending Dr: Eliezer Newell [...] Aaron Mock M.D.05/15/2023 8:32 AM Dictation Location: [place] [address] Transcribed By: [facility] 05/15/23 0832 Dictated By: Aaron Mock DO 05/15/23 0831 Signed By: 05/15/23 0832 Normal [facility] Arterial Blood Gason 023 ABG Base Excess 7.1 mmol/L High -3.0-3.0 [facility] Comment on above: Performed By: #### A BG #### Point of Care testing , ABG Frac Inspired O2 30 % Normal [facility] Comment on above: Performed By: #### A BG #### Point of Care testing , ABG Oxygen Content 8.4 mmol/L Normal 6.6-9.7 [facility] Comment on above: Performed By: #### A BG #### Point of Care testing , ABG Oxygen Saturation 92.8 % Low 95.0-100.0 [facility] Comment on above: Performed By: #### A BG #### Point of Care testing , ABG PCO2 51.8 mm[Hg] Off scale high 35.0-45.0 [facility] Comment on above: Performed By: #### A BG #### Point of Care testing , ABG PEEP 5 Normal [facility] Comment on above: Performed By: #### A BG #### Point of Care testing , ABG PH 7.42 Normal 7.35-7.45 [facility] Comment on above: Performed By: #### A BG #### Point of Care testing , ABG PO2 62.6 mm[Hg] Low 80.0-100.0 [facility] Comment on above: Performed By: #### A BG #### Point of Care testing , ABG TV 500 mL Normal [facility] Comment on above: Performed By: #### A BG #### Point of Care testing , CO2 [Moles/Vol] 34.7 mmol/L High 23.0-27.0 [facility] Comment on above: Performed By: #### A BG #### Point of Care testing , HCO3 (Bld) [Moles/Vol] 33.1 mmol/L High 23.0-29.0 [facility] Comment on above: Performed By: #### A BG #### Point of Care testing , Respiratory Critical Normal [facility] Comment on above: Result Comment: Crit ical Value called on: 05/14/2023 at 04:52 PERFORMED BY: [place] [address] [place] [address] PATHOLOGIST MANAGER APPOINTMENT GINA CARDONA M.D. Performed By: #### A BG #### Point of Care testing , Set Respiratory Rate 10 Normal [facility] Comment on above: Performed By: #### A BG #### Point of Care testing , VBG Draw Site Right Radial Normal [facility] Comment on above: Performed By: #### A BG #### Point of Care testing , Basic Metabolic Panelon - Anion gap [Moles/Vol] Not performed Normal 6.0-15.0 [facility] Comment on above: Performed By: #### B SUZANNE, CBCNO ####[place] [address] [place] [address] [facility] Calcium [Mass/Vol] 8.7 mg/dL Normal 8.6-10.3 [facility] Comment on above: Performed By: #### B SUZANNE, CBCNO ####[place] [address] [place] [address] [place] Chloride [Moles/Vol] 100 mmol/L Normal 98-107 [facility] Comment on above: Performed By: #### B SUZANNE, CBCNO ####[place] [address] [place] [address] [facility] CO2 [Moles/Vol] 35.9 mmol/L High 21.0-31.0 [facility] Comment on above: Performed By: #### B SUZANNE, CBCNO ####[address] [address] [place] Creatinine [Mass/Vol] 0.98 mg/dL Normal 0.70-1.30 [facility] Comment on above: Performed By: #### B SUZANNE, CBCNO ####[address] [address] [place] Creatinine Clr Calc Pharmacy 89.58 Normal [facility] Comment on above: Result Comment: PERF ORMED BY: [facility] [address] [facility] [place] [id number] PATHOLOGIST MANAGER APPOINTMENT GINA CARDONA M.D. Performed By: #### B SUZANNE, CBCNO ####[address] [address] [place] GFR/1.73 sq M.predicted MDRD (S/P/Bld) [Vol rate/Area] mL/min/{1.73_m2} Normal [facility] Comment on above: Performed By: #### B SUZANNE, CBCNO ####[place] [address] [place] [id number] [facility] Glucose [Mass/Vol] 143 mg/dL High 70-100 [facility] Comment on above: Result Comment: [place] Glucose Reference Range is dependent on time and content of last meal. Glucose of more than 200 mg/dL in a nonstressed, ambulatory subject supports the diagnosis of Diabetes Mellitus. ADA recommended reference range Performed By: #### B MP, CBCNO ####[place] [address] [place] [phone] [facility] Potassium Normal 3.5-5.1 [facility] Comment on above: Result Comment: Spec imen hemolyzed, redraw requested Performed By: #### B MP, CBCNO ####[place] [address] [place] [phone] [facility] Sodium Normal 136-145 [facility] Comment on above: Result Comment: Spec imen hemolyzed, redraw requested Performed By: #### B MP, CBCNO ####[place] [address] [place] [phone] [facility] Urea nitrogen [Mass/Vol] 30 mg/dL High 7-25 [facility] Comment on above: Performed By: #### B SUZANNE, CBCNO ####[place] [address] [place] [phone] [facility] ECG 12 lead ECGon 05-14-2023 ECG 12 lead ECG [facility] Main [place] [address] [place] [address] Electrocardiograph Report Signed Patient: Taurus Garcia MR#: [id number] : 1945 Acct:[id number] Age/Sex: 77 / M ADM Date: 05/10/23 Loc: Room: [address] [place] [address] Type: DIS IN Attending Dr: Chau Lara [...] QT has shortened Confirmed by MARIBEL BRIDGES [facility], BALDO ([id number]) on 05/22/2023 5:35:50 PM Referred By: Electronically Signed By:BALDO GOMES MD [facility] Transcribed By: MUS Signed By Baltazar Gomes MD 05/22/23 1735 Normal [facility] Glucose Poct Glucometerson 0 05-14-2023 Commemt1 Glu2: Cleaned Meter Normal [facility] Comment on above: Result Comment: PERF ORMED BY: [facility] [address] [place] [address] PATHOLOGIST MANAGER APPOINTMENT GINA CARDONA M.D. Performed By: #### G LULS ####Point of Care testing, Glucose [Mass/Vol] 176 mg/dL Normal [facility] Comment on above: Result Comment: [facility] Glucose Reference Range is dependent on time and content of last meal. Glucose of more than 200 mg/dL in a nonstressed, ambulatory subject supports the diagnosis of Diabetes Mellitus. Performed By: #### G LULS ####Point of Care testing, Glucose [Mass/Vol] 170 mg/dL Normal [facility] Comment on above: Result Comment: [facility] Glucose Reference Range is dependent on time and content of last meal. Glucose of more than 200 mg/dL in a nonstressed, ambulatory subject supports the diagnosis of Diabetes Mellitus. PERFORMED BY: [facility] [address] [place] [address] PATHOLOGIST MANAGER APPOINTMENT GINA CARDONA M.D. Performed By: #### G LULS ####Point of Care testing, Glucose [Mass/Vol] 133 mg/dL Normal [facility] Comment on above: Result Comment: [facility] Glucose Reference Range is dependent on time and content of last meal. Glucose of more than 200 mg/dL in a nonstressed, ambulatory subject supports the diagnosis of Diabetes Mellitus. PERFORMED BY: [facility] [address] [place] [id number] PATHOLOGIST MANAGER APPOINTMENT GINA CARDONA M.D. Performed By: #### G ANASTASIIA #### Point of Care testing , Hemogram CBC Without Diffon 05-14-2023 Erythrocyte distribution width (RBC) [Ratio] 18.4 % High 12.0-14.8 [facility] Comment on above: Performed By: #### B SUZANNE, CBCNO ####[place] [id number] [facility] Hematocrit (Bld) [Volume fraction] 43.9 % Normal 38.8-50.0 [facility] Comment on above: Performed By: #### B SUZANNE, CBCNO ####[place] [id number] [facility] Hemoglobin (Bld) [Mass/Vol] 14.5 g/dL Normal 13.0-17.0 [facility] Comment on above: Performed By: #### B SUZANNE, CBCNO ####[address] [address] [facility] MCH (RBC) [Entitic mass] 28.1 pg Normal 27.5-35.2 [facility] Comment on above: Performed By: #### B SUZANNE, CBCNO ####[place] [id number] [facility] MCV (RBC) [Entitic vol] 85.0 fL Normal 83.5-101 [facility] Comment on above: Performed By: #### B MP, CBCNO ####[address] [address] [facility] Mean Corpuscular HGB Conc 33.0 g/dL Normal 32.5-35.6 [facility] Comment on above: Performed By: #### B MP, CBCNO ####[place] [id number] [facility] Platelet mean volume (Bld) [Entitic vol] 9.4 fL Normal 6.6-10.1 [facility] Comment on above: Result Comment: PERF ORMED BY: [place] [address] PATHOLOGIST MANAGER APPOINTMENT GINA CARDONA M.D. Performed By: #### B MP, CBCNO ####[place] [id number] [facility] Platelets (Bld) [#/Vol] 117 10*3/uL Low 150-450 [facility] Comment on above: Performed By: #### B MP, CBCNO ####[address] RBC (Bld) [#/Vol] 5.17 10*6/uL Normal 3.90-5.60 [facility] Comment on above: Performed By: #### B MP, CBCNO ####[place] [id number] [facility] WBC (Bld) [#/Vol] 11.0 10*3/uL High 4.1-10.5 [facility] Comment on above: Performed By: #### B MP, CBCNO ####[address] Redraw Potassiumon 3 Potassium [Moles/Vol] 4.0 mmol/L Normal 3.5-5.1 [facility] Comment on above: Order Comment: PREVI OUS SPECIMEN GROSSLY HEMOLYZED. NOTIFIED FOREIGN ON 4C Result Comment: PERF ORMED BY: [place] [address] PATHOLOGIST MANAGER APPOINTMENT GINA CARDONA M.D. Performed By: #### G LULS #### Point of Care testing , Redraw Sodiumon 05-14-2023 Sodium [Moles/Vol] 140 mmol/L Normal 136-145 [facility] Comment on above: Order Comment: PREVI OUS SPECIMEN GROSSLY HEMOLYZED. NOTIFIED FOREIGN ON 4C Performed By: #### G LULS #### Point of Care testing , XR chest 1V portableon 05-14 XR chest 1V portable [facility] [place] [address] XRay Report Signed Patient: Taurus Garcia MR#: [id number] : 1945 Acct:[id number] Age/Sex: 77 / M ADM Date: 05/10/23 Loc: Room: [address] [place] [address] Type: ADM IN Attending Dr: Eliezer Newell [...] Aaron Mock M.D.05/14/2023 8:28 AM Dictation Location: [place] [address] Transcribed By: [facility] 05/14/23827 Dictated By: Aaron Mock DO 05/14/23827 Signed By: 05/14/23827 Normal [facility] Arterial Blood Gason 023 ABG Base Excess 2.9 mmol/L Normal -3.0-3.0 [facility] Comment on above: Performed By: #### G LULS #### Point of Care testing , ABG Frac Inspired O2 30 % Normal [facility] Comment on above: Performed By: #### G LULS #### Point of Care testing , ABG Oxygen Content 8.4 mmol/L Normal 6.6-9.7 [facility] Comment on above: Performed By: #### G LULS #### Point of Care testing , ABG Oxygen Saturation 95.2 % Normal 95.0-100.0 [facility] Comment on above: Performed By: #### G LULS #### Point of Care testing , ABG PCO2, Temp Corrected 53.2 mm[Hg] Off scale high 35.0-45.0 [facility] Comment on above: Performed By: #### G LULS #### Point of Care testing , ABG PEEP 5 Normal [facility] Comment on above: Performed By: #### G LULS #### Point of Care testing , ABG PH, Temp Corrected 7.36 Normal 7.35-7.45 [facility] Comment on above: Performed By: #### G LULS #### Point of Care testing , ABG PO2, Temperature Corrected 77.8 mm[Hg] Low 80.0-100.0 [facility] Comment on above: Performed By: #### G LULS #### Point of Care testing , ABG TV 500 mL Normal [facility] Comment on above: Performed By: #### G LULS #### Point of Care testing , CO2 [Moles/Vol] 31.1 mmol/L High 23.0-27.0 [facility] Comment on above: Performed By: #### G LULS #### Point of Care testing , HCO3 (Bld) [Moles/Vol] 29.4 mmol/L High 23.0-29.0 [facility] Comment on above: Performed By: #### G LULS #### Point of Care testing , Respiratory Critical Normal [facility] Comment on above: Result Comment: Crit ical Value called on: 05/13/2023 at 04:46 PERFORMED BY: [facility] [address] [place] [address] PATHOLOGIST MANAGER APPOINTMENT GINA CARDONA M.D. Performed By: #### G LULS #### Point of Care testing , Set Respiratory Rate 10 Normal [facility] Comment on above: Performed By: #### G LULS #### Point of Care testing , VBG Draw Site Left Radial Normal [facility] Comment on above: Performed By: #### G LULS #### Point of Care testing , Basic Metabolic Panelon 09-2 Anion gap [Moles/Vol] Not performed Normal 6.0-15.0 [facility] Comment on above: Performed By: #### A BG #### Point of Care testing , Calcium [Mass/Vol] 8.9 mg/dL Normal 8.6-10.3 [facility] Comment on above: Performed By: #### A BG #### Point of Care testing , Chloride [Moles/Vol] 103 mmol/L Normal 98-107 [facility] Comment on above: Performed By: #### A BG #### Point of Care testing , CO2 [Moles/Vol] 33.8 mmol/L High 21.0-31.0 [facility] Comment on above: Performed By: #### A BG #### Point of Care testing , Creatinine [Mass/Vol] 1.18 mg/dL Normal 0.70-1.30 [facility] Comment on above: Performed By: #### A BG #### Point of Care testing , Creatinine Clr Calc Pharmacy 73.82 Normal [facility] Comment on above: Performed By: #### A BG #### Point of Care testing , GFR/1.73 sq M.predicted MDRD (S/P/Bld) [Vol rate/Area] mL/min/{1.73_m2} Normal [facility] Comment on above: Performed By: #### A BG #### Point of Care testing , Glucose [Mass/Vol] 113 mg/dL High 70-100 [facility] Comment on above: Result Comment: [facility] Glucose Reference Range is dependent on time and content of last meal. Glucose of more than 200 mg/dL in a nonstressed, ambulatory subject supports the diagnosis of Diabetes Mellitus. ADA recommended reference range Performed By: #### A BG #### Point of Care testing , Potassium Normal 3.5-5.1 [facility] Comment on above: Result Comment: Spec imen hemolyzed, redraw requested Performed By: #### A BG #### Point of Care testing , Sodium [Moles/Vol] 140 mmol/L Normal 136-145 [facility] Comment on above: Performed By: #### A BG #### Point of Care testing , Urea nitrogen [Mass/Vol] 28 mg/dL High 7-25 [facility] Comment on above: Performed By: #### A BG #### Point of Care testing , Glucose Poct Glucometerson 0 05-13-2023 Glucose [Mass/Vol] 92 mg/dL Normal [facility] Comment on above: Result Comment: [place] om Glucose Reference Range is dependent on time and content of last meal. Glucose of more than 200 mg/dL in a nonstressed, ambulatory subject supports the diagnosis of Diabetes Mellitus. PERFORMED BY: [place] [address] PATHOLOGIST MANAGER APPOINTMENT GINA CARDONA M.D. Performed By: #### G LULS #### Point of Care testing , Commemt1 Glu2: Cleaned Meter Normal [facility] Comment on above: Result Comment: PERF ORMED BY: [place] [address] PATHOLOGIST MANAGER APPOINTMENT GINA CARDONA M.D. Performed By: #### G LULS #### Point of Care testing , Glucose [Mass/Vol] 182 mg/dL Normal [facility] Comment on above: Result Comment: [place] om Glucose Reference Range is dependent on time and content of last meal. Glucose of more than 200 mg/dL in a nonstressed, ambulatory subject supports the diagnosis of Diabetes Mellitus. Performed By: #### G LULS #### Point of Care testing , Commemt1 Glu2: Cleaned Meter Normal [facility] Comment on above: Result Comment: PERF ORMED BY: [place] [address] PATHOLOGIST MANAGER APPOINTMENT GINA CARDONA M.D. Performed By: #### G LULS ####Point of Care testing, Glucose [Mass/Vol] 162 mg/dL Normal [facility] Comment on above: Result Comment: [place] om Glucose Reference Range is dependent on time and content of last meal. Glucose of more than 200 mg/dL in a nonstressed, ambulatory subject supports the diagnosis of Diabetes Mellitus. Performed By: #### G LULS ####Point of Care testing, Glucose [Mass/Vol] 115 mg/dL Normal [facility] Comment on above: Result Comment: [facility] Glucose Reference Range is dependent on time and content of last meal. Glucose of more than 200 mg/dL in a nonstressed, ambulatory subject supports the diagnosis of Diabetes Mellitus. PERFORMED BY: [address] [address] PATHOLOGIST MANAGER APPOINTMENT GINA CARDONA M.D. Performed By: #### G LULS #### Point of Care testing , Glucose [Mass/Vol] 123 mg/dL Normal [facility] Comment on above: Result Comment: [facility] Glucose Reference Range is dependent on time and content of last meal. Glucose of more than 200 mg/dL in a nonstressed, ambulatory subject supports the diagnosis of Diabetes Mellitus. PERFORMED BY: [address] [address] PATHOLOGIST MANAGER APPOINTMENT GINA CARDONA M.D. Performed By: #### G LULS #### Point of Care testing , Hemogram CBC Without Diffon 05-13-2023 Erythrocyte distribution width (RBC) [Ratio] 18.8 % High 12.0-14.8 [facility] Comment on above: Performed By: #### A BG #### Point of Care testing , Hematocrit (Bld) [Volume fraction] 43.7 % Normal 38.8-50.0 [facility] Comment on above: Performed By: #### A BG #### Point of Care testing , Hemoglobin (Bld) [Mass/Vol] 14.3 g/dL Normal 13.0-17.0 [facility] Comment on above: Performed By: #### A BG #### Point of Care testing , MCH (RBC) [Entitic mass] 28.0 pg Normal 27.5-35.2 [facility] Comment on above: Performed By: #### A BG #### Point of Care testing , MCV (RBC) [Entitic vol] 85.6 fL Normal 83.5-101 [facility] Comment on above: Performed By: #### A BG #### Point of Care testing , Mean Corpuscular HGB Conc 32.7 g/dL Normal 32.5-35.6 [facility] Comment on above: Performed By: #### A BG #### Point of Care testing , Platelet mean volume (Bld) [Entitic vol] 9.0 fL Normal 6.6-10.1 [facility] Comment on above: Result Comment: PERF ORMED BY: [place] [address] [place] [address] PATHOLOGIST MANAGER APPOINTMENT GINA CARDONA M.D. Performed By: #### A BG #### Point of Care testing , Platelets (Bld) [#/Vol] 106 10*3/uL Low 150-450 [facility] Comment on above: Performed By: #### A BG #### Point of Care testing , RBC (Bld) [#/Vol] 5.11 10*6/uL Normal 3.90-5.60 [facility] Comment on above: Performed By: #### A BG #### Point of Care testing , WBC (Bld) [#/Vol] 7.4 10*3/uL Normal 4.1-10.5 [facility] Comment on above: Performed By: #### A BG #### Point of Care testing , No Panel InformationOrdered By: Eliezer Newell on 05-13-2023 Arterial Blood pCO2 (Temp correct) 53.2 mm[Hg] 35.0-45.0 [facility] Arterial Blood pH (Temp corrected) 7.36 7.35-7.45 [facility] Arterial Blood pO2 (Temp corrected) 77.8 mm[Hg] 80.0-100.0 [facility] Redraw Potassiumon 3 Potassium [Moles/Vol] 4.2 mmol/L Normal 3.5-5.1 [facility] Comment on above: Order Comment: Previ ous specimen was hemolyzed, notified Peter (4C); redraw requested.-JJ Result Comment: Hemo lysis is present at a level that could interfere with the result. PERFORMED BY: [facility] [address] [place] [address] PATHOLOGIST MANAGER APPOINTMENT GINA CARDONA M.D. Performed By: #### G LULS #### Point of Care testing , Triglycerideson 05-13-2023 Triglyceride [Mass/Vol] 203 mg/dL High 35-149 [facility] Comment on above: Result Comment: TRIG ATP III CLASSIFICATION TRIG less than 150 mg/dL Normal TRIG 150-199 mg/dL Borderline high TRIG 200-500 mg/dL High TRIG greater than 500 mg/dL Very high Standard traceable to the Center for Disease Conrtrol and Prevention (CDC) test method. PERFORMED BY: [place] [address] PATHOLOGIST MANAGER APPOINTMENT GINA CARDONA M.D. Performed By: #### A BG #### Point of Care testing , XR chest 1V portableon 05-13 XR chest 1V portable [facility] Main [place] [address] [place] [address] XRay Report Signed Patient: Taurus Garcia MR#: [id number] : 1945 Acct:[id number] Age/Sex: 77 / M ADM Date: 05/10/23 Loc: Room: [address] [place] [address] Type: ADM IN Attending Dr: Eliezer Newell [...] Aaron Mock M.D.05/13/2023 8:23 AM Dictation Location: [place] [address] Transcribed By: [facility] 05/13/23822 Dictated By: Aaron Mock DO 05/13/23821 Signed By: 05/13/23822 Normal [facility] Aerobic Cultureon 05-12-2023 Aerobic Culture Light Normal Respira tory Gee 2 Days Gram Stain Result 1+ White Blood Cells Rare Epithelial Cells No Bacteria Seen PERFORMED BY: [facility] [place] [address] PATHOLOGIST MANAGER APPOINTMENT GINA CARDONA M.D. Normal [facility] Comment on above: Performed By: #### A BG #### Point of Care testing , Aerobic cultureOrdered By: Valdemar Armstrong on 05-12-2023 Bacteria identified Aer cx Nom (Unsp spec) 2 Days [facility] Arterial Blood Gason 023 ABG Base Excess 6.1 mmol/L High -3.0-3.0 [facility] Comment on above: Performed By: #### G LULS #### Point of Care testing , ABG Frac Inspired O2 30 % Normal [facility] Comment on above: Performed By: #### G LULS #### Point of Care testing , ABG Oxygen Content 8.8 mmol/L Normal 6.6-9.7 [facility] Comment on above: Performed By: #### G LULS #### Point of Care testing , ABG Oxygen Saturation 95.5 % Normal 95.0-100.0 [facility] Comment on above: Performed By: #### G LULS #### Point of Care testing , ABG PCO2 49.3 mm[Hg] High 35.0-45.0 [facility] Comment on above: Performed By: #### G LULS #### Point of Care testing , ABG PEEP 5 Normal [facility] Comment on above: Performed By: #### G LULS #### Point of Care testing , ABG PH 7.43 Normal 7.35-7.45 [facility] Comment on above: Performed By: #### G LULS #### Point of Care testing , ABG PO2 72.1 mm[Hg] Low 80.0-100.0 [facility] Comment on above: Performed By: #### G LULS #### Point of Care testing , ABG TV 500 mL Normal [facility] Comment on above: Performed By: #### G LULS #### Point of Care testing , CO2 [Moles/Vol] 33.2 mmol/L High 23.0-27.0 [facility] Comment on above: Performed By: #### G LULS #### Point of Care testing , HCO3 (Bld) [Moles/Vol] 31.7 mmol/L High 23.0-29.0 [facility] Comment on above: Performed By: #### G LULS #### Point of Care testing , Respiratory Critical Normal [facility] Comment on above: Result Comment: Crit ical Value called on: 05/12/2023 at 04:04 PERFORMED BY: [place] [address] [place] [address] PATHOLOGIST MANAGER APPOINTMENT GINA CARDONA M.D. Performed By: #### G LULS #### Point of Care testing , Set Respiratory Rate 10 Normal [facility] Comment on above: Performed By: #### G LULS #### Point of Care testing , VBG Draw Site Left Radial Normal [facility] Comment on above: Performed By: #### G LULS #### Point of Care testing , Ventilator Mode AC Normal [facility] Comment on above: Performed By: #### G LULS #### Point of Care testing , Basic Metabolic Panelon 04-22 Anion gap [Moles/Vol] Not performed Normal 6.0-15.0 [facility] Comment on above: Performed By: #### C BCLIZ, BMP ####[facility] [place] [address] [facility] Calcium [Mass/Vol] 9.0 mg/dL Normal 8.6-10.3 [facility] Comment on above: Performed By: #### C BCLIZ, BMP ####[facility] [place] [address] [facility] Chloride [Moles/Vol] 105 mmol/L Normal 98-107 [facility] Comment on above: Performed By: #### C MINNIE, BMP ####[place] [address] [place] [phone] [facility] CO2 [Moles/Vol] 31.7 mmol/L High 21.0-31.0 [facility] Comment on above: Performed By: #### C MINNIE, BMP ####[place] [address] [place] [id number] [facility] Creatinine [Mass/Vol] 1.12 mg/dL Normal 0.70-1.30 [facility] Comment on above: Performed By: #### C MINNIE, BMP ####[place] [address] [place] [phone] [facility] Creatinine Clr Calc Pharmacy 76.51 Normal [facility] Comment on above: Result Comment: PERF ORMED BY: [facility] [address] [place] [address] PATHOLOGIST MANAGER APPOINTMENT GINA CARDONA M.D. Performed By: #### C MINNIE, BMP ####[place] [id number] [facility] GFR/1.73 sq M.predicted MDRD (S/P/Bld) [Vol rate/Area] mL/min/{1.73_m2} Normal [facility] Comment on above: Performed By: #### C MINNIE, BMP ####[place] [id number] [facility] Glucose [Mass/Vol] 113 mg/dL High 70-100 [facility] Comment on above: Result Comment: [place] Glucose Reference Range is dependent on time and content of last meal. Glucose of more than 200 mg/dL in a nonstressed, ambulatory subject supports the diagnosis of Diabetes Mellitus. ADA recommended reference range Performed By: #### C MINNIE, BMP ####[place] [id number] [facility] Potassium Normal 3.5-5.1 [facility] Comment on above: Result Comment: Spec imen hemolyzed, redraw requested Performed By: #### C MINNIE, BMP ####[place] [id number] [facility] Sodium [Moles/Vol] 144 mmol/L Significant change down 136-145 [facility] Comment on above: Performed By: #### C BCNO, BMP ####[address] Urea nitrogen [Mass/Vol] 23 mg/dL Normal 7-25 [facility] Comment on above: Performed By: #### C BCNO, BMP ####[address] Basophils/100 leukocytes in Blood by Manual countOrdered By: Stanley Burt on 05-12-2023 Basophils/100 WBC (Bld) 0 % Normal 0-2 [facility] Comment on above: Performed By: #### H APT, DIFF CBC, PATH SLIDE REV ####[address] Blood Cultureon 05-12-2023 Bacteria identified Cx Nom (Bld) (LEFT FINGER TIFFANY POKED FOR BC) NO GROWTH 5 DAYS PERFORMED BY: [facility] [address] [place] [address] PATHOLOGIST MANAGER APPOINTMENT GINA CARDONA M.D. Normal [facility] Comment on above: Performed By: #### C UBLD ####[address] Bacteria identified Cx Nom (Bld) BioFire [...] Not detected Streptococcus pneumoniae - reported at [facility] Not detected Proteus sp DNA [Presence] by [...] culture Not detected Group A (Streptococcus pyogenes) [id number] Not detected Group B Strep (Streptococcus agalactiae) [...] indicate ant (more content not included)... Normal [facility] Comment on above: Performed By: #### C UBLD ####[address] Diff and CBCon 05-12-2023 Erythrocyte distribution width (RBC) [Ratio] 18.7 % High 12.0-14.8 [facility] Comment on above: Performed By: #### H APT, DIFF CBC, PATH SLIDE REV ####[address] Hematocrit (Bld) [Volume fraction] 39.3 % Normal 38.8-50.0 [facility] Comment on above: Performed By: #### H APT, DIFF CBC, PATH SLIDE REV ####[address] Hemoglobin (Bld) [Mass/Vol] 12.9 g/dL Low 13.0-17.0 [facility] Comment on above: Performed By: #### H APT, DIFF CBC, PATH SLIDE REV ####[address] MCH (RBC) [Entitic mass] 27.9 pg Normal 27.5-35.2 [facility] Comment on above: Performed By: #### H APT, DIFF CBC, PATH SLIDE REV ####[address] MCV (RBC) [Entitic vol] 85.2 fL Normal 83.5-101 [facility] Comment on above: Performed By: #### H APT, DIFF CBC, PATH SLIDE REV ####[address] Mean Corpuscular HGB Conc 32.8 g/dL Normal 32.5-35.6 [facility] Comment on above: Performed By: #### H APT, DIFF CBC, PATH SLIDE REV ####[address] Platelet Estimate Decreased Normal Normal [facility] Comment on above: Performed By: #### H APT, DIFF CBC, PATH SLIDE REV ####[address] Platelet mean volume (Bld) [Entitic vol] 8.7 fL Normal 6.6-10.1 [facility] Comment on above: Result Comment: PERF ORMED BY: [address] [place] [address] PATHOLOGIST MANAGER APPOINTMENT GINA CARDONA M.D. Performed By: #### H APT, DIFF CBC, PATH SLIDE REV ####[address] Platelet Morphology Normal Normal Normal [facility] Comment on above: Result Comment: PERF ORMED BY: [facility] [address] [place] [address] PATHOLOGIST MANAGER APPOINTMENT GINA CARDONA M.D. Performed By: #### H APT, DIFF CBC, PATH SLIDE REV ####[address] [address] [facility] Platelets (Bld) [#/Vol] 120 10*3/uL Low 150-450 [facility] Comment on above: Performed By: #### H APT, DIFF CBC, PATH SLIDE REV ####[address] [address] [facility] Polychromasia Slight Normal [facility] Comment on above: Performed By: #### H APT, DIFF CBC, PATH SLIDE REV ####[address] [address] [facility] RBC (Bld) [#/Vol] 4.61 10*6/uL Normal 3.90-5.60 [facility] Comment on above: Performed By: #### H APT, DIFF CBC, PATH SLIDE REV ####[address] [address] [facility] Tear Drop Cells Slight Normal [facility] Comment on above: Performed By: #### H APT, DIFF CBC, PATH SLIDE REV ####[place] [id number] [facility] WBC (Bld) [#/Vol] 6.5 10*3/uL Normal 4.1-10.5 [facility] Comment on above: Performed By: #### H APT, DIFF CBC, PATH SLIDE REV ####[place] [id number] [facility] Eosinophils/100 leukocytes i n Blood by Manual countOrdered By: Stanley Burt on 05-12-2023 Eosinophils/100 WBC (Bld) 6 % High 1-3 [facility] Comment on above: Performed By: #### H APT, DIFF CBC, PATH SLIDE REV ####[place] [id number] [facility] Glucose Poct Glucometerson 0 05-12-2023 Glucose [Mass/Vol] 200 mg/dL Normal [facility] Comment on above: Result Comment: [place] Glucose Reference Range is dependent on time and content of last meal. Glucose of more than 200 mg/dL in a nonstressed, ambulatory subject supports the diagnosis of Diabetes Mellitus. PERFORMED BY: [address] [place] [id number] PATHOLOGIST MANAGER APPOINTMENT GINA CARDONA M.D. Performed By: #### G LULS #### Point of Care testing , Commemt1 Glu2: Cleaned Meter Normal [facility] Comment on above: Result Comment: PERF ORMED BY: [facility] [address] [place] [address] PATHOLOGIST MANAGER APPOINTMENT GINA CARDONA M.D. Performed By: #### G LULS ####Point of Care testing, Glucose [Mass/Vol] 219 mg/dL Normal [facility] Comment on above: Result Comment: [place] om Glucose Reference Range is dependent on time and content of last meal. Glucose of more than 200 mg/dL in a nonstressed, ambulatory subject supports the diagnosis of Diabetes Mellitus. Performed By: #### G LULS ####Point of Care testing, Commemt1 Glu2: Cleaned Meter Normal [facility] Comment on above: Result Comment: PERF ORMED BY: [facility] [address] [facility] [place] [address] PATHOLOGIST MANAGER APPOINTMENT GINA CARDONA M.D. Performed By: #### G LULS #### Point of Care testing , Glucose [Mass/Vol] 111 mg/dL Normal [facility] Comment on above: Result Comment: [place] om Glucose Reference Range is dependent on time and content of last meal. Glucose of more than 200 mg/dL in a nonstressed, ambulatory subject supports the diagnosis of Diabetes Mellitus. Performed By: #### G LULS #### Point of Care testing , Gram stain for investigation of transfusion reactionOrdered By: Donita Armstrong on 05-12-2023 Microscopic observation Gram stain Nom (Unsp spec) [facility] Haptoglobinon 05-12-2023 Haptoglobin 93 mg/dL Normal 44-215 [facility] Comment on above: Result Comment: Hemo lysis is present at a level that could interfere with the result. PERFORMED BY: [facility] [address] [facility] [place] [id number] PATHOLOGIST MANAGER APPOINTMENT GINA CARDONA M.D. Performed By: #### H APT, DIFF CBC, PATH SLIDE REV ####[address] Haptoglobin [Mass/volume] in Serum or PlasmaOrdered By: Stanley Burt on 05-12-2023 Haptoglobin [Mass/Vol] 93 mg/dL 44-215 [facility] Comment on above: Hemolysis is present at a level that could interfere with the result. Hemogram CBC Without Diffon 05-12-2023 Erythrocyte distribution width (RBC) [Ratio] 18.8 % High 12.0-14.8 [facility] Comment on above: Performed By: #### C MINNEI, BMP ####[address] Hematocrit (Bld) [Volume fraction] 44.3 % Normal 38.8-50.0 [facility] Comment on above: Performed By: #### C MINNIE, BMP ####[address] Hemoglobin (Bld) [Mass/Vol] 14.6 g/dL Normal 13.0-17.0 [facility] Comment on above: Performed By: #### Daniella HARTMAN, BMP ####[address] MCH (RBC) [Entitic mass] 28.2 pg Normal 27.5-35.2 [facility] Comment on above: Performed By: #### C MINNIE, BMP ####[address] MCV (RBC) [Entitic vol] 85.8 fL Normal 83.5-101 [facility] Comment on above: Performed By: #### C MINNIE, BMP ####[address] Mean Corpuscular HGB Conc 32.9 g/dL Normal 32.5-35.6 [facility] Comment on above: Performed By: #### C MINNIE, BMP ####[address] Platelet mean volume (Bld) [Entitic vol] 9.2 fL Normal 6.6-10.1 [facility] Comment on above: Result Comment: PERF ORMED BY: [facility] [address] [place] [address] PATHOLOGIST MANAGER APPOINTMENT GINA CARDONA M.D. Performed By: #### Daniella HARTMAN, BMP ####[address] Platelets (Bld) [#/Vol] 139 10*3/uL Low 150-450 [facility] Comment on above: Performed By: #### Daniella HARTMAN, BMP ####[address] RBC (Bld) [#/Vol] 5.17 10*6/uL Normal 3.90-5.60 [facility] Comment on above: Performed By: #### Daniella HARTMAN, BMP ####[address] WBC (Bld) [#/Vol] 9.2 10*3/uL Normal 4.1-10.5 [facility] Comment on above: Performed By: #### Daniella HARTMAN, BMP ####[address] 05-12-2023 L ------ Specimen: [id number] Received: 05/12/23 Status: SIMÓN Blaire Num: [id number] Spec Type: Impression Subm Dr: Eliezer Newell MD Tissues: PATHPER Procedures: PATHREVIEW Age/ Patient Sex Location Account Attending Physician Taurus Garcia 77/[facility] [id number] Suraj Razo MD SPEC NUM: [id number] RECD: 05/12/23 STATUS: SIMÓN BLAIRE NUM: [id number] SUMI: 05/12/23 DR: Eliezer Newell MD ENTERED: 05/12/[address]: SPEC TYPE: Impression DEPT: SC ENTERED BY: [id number] RECV BY: [id number] ORDERED: PATHREVIEW ORDERED: PATHREVIEW Pathologist Review Abnormal [...] or other immunology profile if indicated. CPT: 70808 Specimen: [id number] Received: 05/12/23 Status: SIMÓN Blaire Num: [id number] Spec Type: Impression Subm Dr: Eliezer Newell MD Tissues: PATHPER Procedures: PATHREVIEW Patient: Taurus Garcia [id number] (Continued) Specimen: [id number] Received: 05/12/23 (Continued) Signed (signature on file) Mira Garcia MD 05/16/23 1218 Specimen: [id number] Received: 05/12/23 Status: SIMÓN Katz Num: [id number] Spec Type: Impression Subm Dr: Eliezer Newell MD Tissues: PATHPER Procedures: PATHREVIEW Patient: Taurus Garcia [id number] (Continued) Specimen: [id number] Received: 05/12/23 (Continued) CBC Date Time Test Result Flag (u) Normal Range 05/11/23 0352 Neut % (Auto) 89.3 . % Lymp % (Auto) 6.5 . % Luce % (Auto) 3.5 . % Eos % (Auto) 0.3 . % Baso % (Auto) 0.4 . % NRBC% 0.0 0-0.5 /100 WBC Neut # (Auto) 8.8 H 1.8-7.7 x10E3/uL Lymph # (Auto) 0.6 L 1.00-4.8 x10E3/uL Luce # (Auto) 0.3 0.0-0.8 x10E3/uL Eos # [...] 50-70 % Lymph 5 L 18-42 % Luce 1 L 2-11 % Eos 6 H 1-3 % Baso 0 0-2 % Polychrom Slight Tear Drop Slight Plt Est Decreased Normal Plt Morphology Normal Normal Specimen: [id number] Received: 05/12/23-1919 Status: SIMÓN Blaire Num: [id number] Spec Type: Impression Subm Dr: Eliezer Newell MD Tissues: PATHPER Procedures: PATHREVIEW Patient: Taurus Garcia [id number] (Continued) Signed (signature on file) Garo-Jose Garcia MD 05/16/23 1218 Normal [facility] Lymphocytes/100 leukocytes i n Blood by Manual countOrdered By: Stanley Burt on 05-12-2023 Lymphocytes/100 WBC (Bld) 5 % Low 18-42 [facility] Comment on above: Performed By: #### H APT, DIFF CBC, PATH SLIDE REV ####[facility] [id number] Manual blood segmented neutr ophils/100 leukocytesOrdered By: Stanley Burt on 05-12-2023 Segmented neutrophils/100 WBC (Bld) 88 % High 50-70 [facility] Comment on above: Performed By: #### H APT, DIFF CBC, PATH SLIDE REV ####[place] [id number] [address] Monocytes/100 leukocytes in Blood by Manual countOrdered By: Stanley Burt on 05-12-2023 Monocytes/100 WBC (Bld) 1 % Low 2-11 [facility] Comment on above: Performed By: #### H APT, DIFF CBC, PATH SLIDE REV ####[place] [id number] [address] No Panel InformationOrdered By: Stanley Burt on 05-12-2023 Slides for Pathologist Review Ordered path review [facility] Pathologist Slide Reviewon 0 05-12-2023 Pathologist Slide Review Ordered Path Review Normal [facility] Comment on above: Order Comment: Comme nt please evaluate for schistocytes Result Comment: PERF ORMED BY: [address] [place] [id number] PATHOLOGIST MANAGER APPOINTMENT GINA CARDONA M.D. Performed By: #### H APT, DIFF CBC, PATH SLIDE REV ####[facility] [id number] [place] [address] [facility] Platelet adequacy [Presence] in Blood by Light microscopyOrdered By: Stanley Burt on 05-12-2023 Platelets LM Ql (Bld) Decreased Normal Fir [facility] Platelet morphology finding [Identifier] in BloodOrdered By: Stanley Burt on 05-12-2023 Platelet morphology finding Nom (Bld) Normal Normal [facility] Polychromasia [Presence] in Blood by Light microscopyOrdered By: Stanley Burt on 05-12-2023 Polychromasia LM Ql (Bld) Slight [facility] RBC morphologyOrdered By: Farhan Burt on 05-12-2023 RBC morphology finding Nom (Bld) N/A [facility] Redraw Potassiumon 3 Potassium [Moles/Vol] 3.7 mmol/L Normal 3.5-5.1 [facility] Comment on above: Order Comment: Kaye e draw a gold on ice and deliver to lab. MLG Result Comment: Hemo lysis is present at a level that could interfere with the result. PERFORMED BY: [address] [place] [address] PATHOLOGIST MANAGER APPOINTMENT GINA CARDONA M.D. Performed By: #### G LULS #### Point of Care testing , Redraw Potassium Normal 3.5-5.1 [facility] Comment on above: Result Comment: Spec imen hemolyzed, redraw requested PERFORMED BY: [address] [place] [id number] PATHOLOGIST MANAGER APPOINTMENT GINA CARDONA M.D. Performed By: #### R EDRAW K ####[place] [id number] [place] Teardrop cell detectionOrder ed By: Stanley Burt on 05-12-2023 Dacrocytes LM Ql (Bld) Slight Fi [facility] Urine Cultureon 05-12-2023 Bacteria identified Cx Nom (U) No Growth 2 Days PERFORMED BY: [place] [address] PATHOLOGIST MANAGER APPOINTMENT GINA CARDONA M.D. Normal [facility] Comment on above: Performed By: #### C UU ####[facility] [id number] [place] [id number] [facility] XR chest 1V portableon 05-12 XR chest 1V portable [facility] Main [place] [address] [place] [address] XRay Report Signed Patient: Taurus Garcia MR#: [id number] : 1945 Acct:[id number] Age/Sex: 77 / M ADM Date: 05/10/23 Loc: Room: [address] [place] [address] Type: ADM IN Attending Dr: Eliezer Newell MD Copies to: MD Eliezer Wood MD Ordering Provider: Lexy Chappell MD Date of Service: 05/12/23 XR/XR chest 1V portable: Ett placement Plain film chest single view HISTORY: Follow-up assessment of intubated patient COMPARISON: 05/11/2023 FINDINGS: SUPPORT DEVICES: Tubes unchanged. POSTSURGICAL CHANGES: None HEART: Within normal limits PULMONARY EDVORA: Within normal limits MEDIASTINUM: Unremarkable LUNGS AND PLEURA: No acute lung process, pleural effusion or pneumothorax identified. Continued mild interstitial prominence. BONY STRUCTURES: Intact ADDITIONAL FINDINGS None XR/XR chest 1V portable IMPRESSION: Stable chest Impression dictated by: Aaron Mock M.D.05/12/2023 8:00 AM Dictation Location: [place] [address] Transcribed By: [facility] 05/12/23 0800 Dictated By: Aaron Mock DO 05/12/23 0759 Signed By: 05/12/23 0800 Normal [facility] Alanine aminotransferase [En zymatic activity/volume] in Serum or PlasmaOrdered By: Jarret Garza on 05-11-2023 ALT [Catalytic activity/Vol] 23 U/L Normal 7-52 [facility] Comment on above: Performed By: #### C BC, PT, MG, CMP, PHOS ####[facility] [place] [address] [facility] Albumin [Mass/volume] in Ser um or Plasma by Bromocresol green (BCG) dye binding methoOrdered By: Jarret Garza on 05-11-2023 Albumin BCG dye [Mass/Vol] 3.1 g/dL 3.5-5.7 [facility] Alkaline phosphatase [Enzyma tic activity/volume] in Serum or PlasmaOrdered By: Jarret Garza on 05-11-2023 ALP [Catalytic activity/Vol] 55 U/L Normal 34-104 [facility] Comment on above: Performed By: #### C BC, PT, MG, CMP, PHOS ####[place] [id number] [place] [id number] [facility] Arterial Blood Gason 023 ABG Base Excess -0.9 mmol/L Normal -3.0-3.0 [facility] Comment on above: Performed By: #### G LULS #### Point of Care testing , ABG Frac Inspired O2 40 % Normal [facility] Comment on above: Performed By: #### G LULS #### Point of Care testing , ABG Oxygen Content 8.4 mmol/L Normal 6.6-9.7 [facility] Comment on above: Performed By: #### G LULS #### Point of Care testing , ABG Oxygen Saturation 97.5 % Normal 95.0-100.0 [facility] Comment on above: Performed By: #### G LULS #### Point of Care testing , ABG PCO2 45.6 mm[Hg] High 35.0-45.0 [facility] Comment on above: Performed By: #### G LULS #### Point of Care testing , ABG PEEP 5 Normal [facility] Comment on above: Performed By: #### G LULS #### Point of Care testing , ABG PH 7.36 Normal 7.35-7.45 [facility] Comment on above: Performed By: #### G LULS #### Point of Care testing , ABG PO2 104.3 mm[Hg] High 80.0-100.0 [facility] Comment on above: Performed By: #### G LULS #### Point of Care testing , ABG TV 500 mL Normal [facility] Comment on above: Performed By: #### G LULS #### Point of Care testing , CO2 [Moles/Vol] 26.3 mmol/L Normal 23.0-27.0 [facility] Comment on above: Performed By: #### G LULS #### Point of Care testing , HCO3 (Bld) [Moles/Vol] 24.9 mmol/L Normal 23.0-29.0 [facility] Comment on above: Performed By: #### G LULS #### Point of Care testing , Respiratory Critical Normal [facility] Comment on above: Result Comment: Crit ical Value called on: 05/11/2023 at 05:03 PERFORMED BY: [facility] [address] [place] [address] PATHOLOGIST MANAGER APPOINTMENT GINA CARDONA M.D. Performed By: #### G LULS #### Point of Care testing , Set Respiratory Rate 10 Normal [facility] Comment on above: Performed By: #### G LULS #### Point of Care testing , VBG Draw Site Right Radial Normal [facility] Comment on above: Performed By: #### G LULS #### Point of Care testing , Ventilator Mode AC Normal [facility] Comment on above: Performed By: #### G LULS #### Point of Care testing , Aspartate aminotransferase [ Enzymatic activity/volume] in Serum or PlasmaOrdered By: Jarret Garza on 05-11-2023 AST [Catalytic activity/Vol] 28 U/L Normal 13-39 [facility] Comment on above: Performed By: #### C BC, PT, MG, CMP, PHOS ####[address] Bilirubin.total [Mass/volume ] in Serum or PlasmaOrdered By: Jarret Garza on 05-11-2023 Bilirubin [Mass/Vol] 0.9 mg/dL Normal 0.3-1.0 [facility] Comment on above: Performed By: #### C BC, PT, MG, CMP, PHOS ####[address] Complete Blood Count Auto Di ffon 05-11-2023 Basophils (Bld) [#/Vol] 0.0 10*3/uL Normal 0.0-0.2 [facility] Comment on above: Result Comment: PERF ORMED BY: [facility] [address] [place] [address] PATHOLOGIST MANAGER APPOINTMENT GINA CARDONA M.D. Performed By: #### C BC, PT, MG, CMP, PHOS ####[address] Basophils/100 WBC (Bld) 0.4 % Normal . [facility] Comment on above: Performed By: #### C BC, PT, MG, CMP, PHOS ####[address] Eosinophils (Bld) [#/Vol] 0.0 10*3/uL Normal 0.0-0.45 [facility] Comment on above: Performed By: #### C BC, PT, MG, CMP, PHOS ####[address] Eosinophils/100 WBC (Bld) 0.3 % Normal . [facility] Comment on above: Performed By: #### C BC, PT, MG, CMP, PHOS ####[address] Erythrocyte distribution width (RBC) [Ratio] 18.6 % High 12.0-14.8 [facility] Comment on above: Performed By: #### C BC, PT, MG, CMP, PHOS ####[address] Hematocrit (Bld) [Volume fraction] 39.4 % Normal 38.8-50.0 [facility] Comment on above: Performed By: #### C BC, PT, MG, CMP, PHOS ####[address] Hemoglobin (Bld) [Mass/Vol] 13.0 g/dL Normal 13.0-17.0 [facility] Comment on above: Performed By: #### C BC, PT, MG, CMP, PHOS ####[address] Lymphocytes (Bld) [#/Vol] 0.6 10*3/uL Low 1.00-4.8 [facility] Comment on above: Performed By: #### C BC, PT, MG, CMP, PHOS ####[address] Lymphocytes/100 WBC (Bld) 6.5 % Normal . [facility] Comment on above: Performed By: #### C BC, PT, MG, CMP, PHOS ####[address] MCH (RBC) [Entitic mass] 27.9 pg Normal 27.5-35.2 [facility] Comment on above: Performed By: #### C BC, PT, MG, CMP, PHOS ####[address] MCV (RBC) [Entitic vol] 84.4 fL Normal 83.5-101 [facility] Comment on above: Performed By: #### C BC, PT, MG, CMP, PHOS ####[address] Mean Corpuscular HGB Conc 33.1 g/dL Normal 32.5-35.6 [facility] Comment on above: Performed By: #### C BC, PT, MG, CMP, PHOS ####[address] Monocytes (Bld) [#/Vol] 0.3 10*3/uL Normal 0.0-0.8 [facility] Comment on above: Performed By: #### C BC, PT, MG, CMP, PHOS ####[address] Monocytes/100 WBC (Bld) 3.5 % Normal . [facility] Comment on above: Performed By: #### C BC, PT, MG, CMP, PHOS ####[address] Neutrophils (Bld) [#/Vol] 8.8 10*3/uL High 1.8-7.7 [facility] Comment on above: Performed By: #### C BC, PT, MG, CMP, PHOS ####[address] Neutrophils/100 WBC (Bld) 89.3 % Normal . [facility] Comment on above: Performed By: #### C BC, PT, MG, CMP, PHOS ####[address] NRBC% 0.0 /100{WBC} Normal 0-0.5 [facility] Comment on above: Performed By: #### C BC, PT, MG, CMP, PHOS ####[address] Platelet mean volume (Bld) [Entitic vol] 9.2 fL Normal 6.6-10.1 [facility] Comment on above: Performed By: #### C BC, PT, MG, CMP, PHOS ####[address] Platelets (Bld) [#/Vol] 110 10*3/uL Low 150-450 [facility] Comment on above: Performed By: #### C BC, PT, MG, CMP, PHOS ####[address] RBC (Bld) [#/Vol] 4.67 10*6/uL Normal 3.90-5.60 [facility] Comment on above: Performed By: #### C BC, PT, MG, CMP, PHOS ####[address] WBC (Bld) [#/Vol] 9.8 10*3/uL Normal 4.1-10.5 [facility] Comment on above: Performed By: #### C BC, PT, MG, CMP, PHOS ####[address] Comprehensive Metabolic Pane rc 05-11-2023 Albumin [Mass/Vol] 3.1 g/dL Low 3.5-5.7 [facility] Comment on above: Performed By: #### C BC, PT, MG, CMP, PHOS ####[address] Anion gap [Moles/Vol] 14.1 mmol/L Normal 6.0-15.0 [facility] Comment on above: Performed By: #### C BC, PT, MG, CMP, PHOS ####[address] Calcium [Mass/Vol] 8.6 mg/dL Normal 8.6-10.3 [facility] Comment on above: Performed By: #### C BC, PT, MG, CMP, PHOS ####[address] Chloride [Moles/Vol] 103 mmol/L Normal 98-107 [facility] Comment on above: Performed By: #### C BC, PT, MG, CMP, PHOS ####[address] CO2 [Moles/Vol] 23.4 mmol/L Normal 21.0-31.0 [facility] Comment on above: Performed By: #### C BC, PT, MG, CMP, PHOS ####[address] Creatinine [Mass/Vol] 1.22 mg/dL Normal 0.70-1.30 [facility] Comment on above: Performed By: #### C BC, PT, MG, CMP, PHOS ####[address] Creatinine Clr Calc Pharmacy 70.49 Normal [facility] Comment on above: Performed By: #### C BC, PT, MG, CMP, PHOS ####[address] GFR/1.73 sq M.predicted MDRD (S/P/Bld) [Vol rate/Area] mL/min/{1.73_m2} Normal [facility] Comment on above: Performed By: #### C BC, PT, MG, CMP, PHOS ####[address] Glucose [Mass/Vol] 170 mg/dL High 70-100 [facility] Comment on above: Result Comment: [facility] Glucose Reference Range is dependent on time and content of last meal. Glucose of more than 200 mg/dL in a nonstressed, ambulatory subject supports the diagnosis of Diabetes Mellitus. ADA recommended reference range Performed By: #### C BC, PT, MG, CMP, PHOS ####[address] Potassium [Moles/Vol] 3.5 mmol/L Normal 3.5-5.1 [facility] Comment on above: Performed By: #### C BC, PT, MG, CMP, PHOS ####[address] Sodium [Moles/Vol] 137 mmol/L Normal 136-145 [facility] Comment on above: Performed By: #### C BC, PT, MG, CMP, PHOS ####[address] Urea nitrogen [Mass/Vol] 21 mg/dL Normal 7-25 [facility] Comment on above: Performed By: #### C BC, PT, MG, CMP, PHOS ####[address] [place] [address] [facility] Dipstick and Microscopicon 0 05-11-2023 Appearance (U) Clear Normal Clear [facility] Comment on above: Order Comment: Name Collection Type:: Harrell Catheter Performed By: #### A BG #### Point of Care testing , Bacteria,Urine None Seen Normal None Seen [facility] Comment on above: Order Comment: Name Collection Type:: Harrell Catheter Performed By: #### A BG #### Point of Care testing , Bilirubin,Urine Negative Normal Negative [facility] Comment on above: Order Comment: Name Collection Type:: Harrell Catheter Performed By: #### A BG #### Point of Care testing , Color (U) Yellow Normal Yellow [facility] Comment on above: Order Comment: Name Collection Type:: Harrell Catheter Performed By: #### A BG #### Point of Care testing , Glucose Ql (U) Normal Normal Normal [facility] Comment on above: Order Comment: Name Collection Type:: Harrell Catheter Performed By: #### A BG #### Point of Care testing , Hyaline Casts,Urine 9-19 High 0-8 [facility] Comment on above: Order Comment: Name Collection Type:: Harrell Catheter Result Comment: PERF ORMED BY: [facility] [address] [place] [address] PATHOLOGIST MANAGER APPOINTMENT GINA CARDONA M.D. Performed By: #### A BG #### Point of Care testing , Ketones Ql (U) 1+ High Negative [facility] Comment on above: Order Comment: Name Collection Type:: Harrell Catheter Performed By: #### A BG #### Point of Care testing , Leukocyte esterase Test strip Ql (U) Negative Normal Negative [facility] Comment on above: Order Comment: Name Collection Type:: Harrell Catheter Performed By: #### A BG #### Point of Care testing , Nitrite,Urine Negative Normal Negative [facility] Comment on above: Order Comment: Name Collection Type:: Harrell Catheter Performed By: #### A BG #### Point of Care testing , Occult Blood,Urine 2+ High Negative [facility] Comment on above: Order Comment: Name Collection Type:: Harrell Catheter Result Comment: PERF ORMED BY: [facility] [address] [place] [address] PATHOLOGIST MANAGER APPOINTMENT GINA CARDONA M.D. Performed By: #### A BG #### Point of Care testing , pH (U) 5.5 [pH] Normal 5.0-9.0 [facility] Comment on above: Order Comment: Name Collection Type:: Harrell Catheter Performed By: #### A BG #### Point of Care testing , Protein,Urine Trace High Negative [facility] Comment on above: Order Comment: Name Collection Type:: Harrell Catheter Performed By: #### A BG #### Point of Care testing , RBC,Urine 20-49 High 0-4 [facility] Comment on above: Order Comment: Name Collection Type:: Harrell Catheter Performed By: #### A BG #### Point of Care testing , Specificy Wright,Urine 1.014 Normal 1.001-1.03 0 [facility] Comment on above: Order Comment: Name Collection Type:: Harrell Catheter Performed By: #### A BG #### Point of Care testing , Squamous Epithelial Cell,Urine None Seen Normal 0-2 [facility] Comment on above: Order Comment: Name Collection Type:: Harrell Catheter Performed By: #### A BG #### Point of Care testing , Urobilinogen,Urine Normal Normal Normal [facility] Comment on above: Order Comment: Name Collection Type:: Harrell Catheter Performed By: #### A BG #### Point of Care testing , WBC LM.HPF (Urine sed) [#/Area] 0 /[HPF] Normal 0-4 [facility] Comment on above: Order Comment: Name Collection Type:: Harrell Catheter Performed By: #### A BG #### Point of Care testing , Glucose Poct Glucometerson 0 05-11-2023 Commemt1 Glu2: Cleaned Meter Normal [facility] Comment on above: Result Comment: PERF ORMED BY: [facility] [address] [place] [address] PATHOLOGIST MANAGER APPOINTMENT GINA CARDONA M.D. Performed By: #### A BG #### Point of Care testing , Glucose [Mass/Vol] 161 mg/dL Normal [facility] Comment on above: Result Comment: [place] Glucose Reference Range is dependent on time and content of last meal. Glucose of more than 200 mg/dL in a nonstressed, ambulatory subject supports the diagnosis of Diabetes Mellitus. Performed By: #### A BG #### Point of Care testing , Glucose [Mass/Vol] 168 mg/dL Normal [facility] Comment on above: Result Comment: [place] [facility] Glucose Reference Range is dependent on time and content of last meal. Glucose of more than 200 mg/dL in a nonstressed, ambulatory subject supports the diagnosis of Diabetes Mellitus. PERFORMED BY: [place] [address] PATHOLOGIST MANAGER APPOINTMENT GINA CARDONA M.D. Performed By: #### G LULS #### Point of Care testing , Commemt1 Glu2: Cleaned Meter Normal [facility] Comment on above: Result Comment: PERF ORMED BY: [place] [address] PATHOLOGIST MANAGER APPOINTMENT GINA CARDONA M.D. Performed By: #### B MP #### [address] Glucose [Mass/Vol] 169 mg/dL Normal [facility] Comment on above: Result Comment: [place] [facility] Glucose Reference Range is dependent on time and content of last meal. Glucose of more than 200 mg/dL in a nonstressed, ambulatory subject supports the diagnosis of Diabetes Mellitus. Performed By: #### B MP #### [facility] [address] [place] [address] [place] Glucose [Mass/Vol] 171 mg/dL Normal [facility] Comment on above: Result Comment: [place] Glucose Reference Range is dependent on time and content of last meal. Glucose of more than 200 mg/dL in a nonstressed, ambulatory subject supports the diagnosis of Diabetes Mellitus. PERFORMED BY: [place] [address] PATHOLOGIST MANAGER APPOINTMENT GINA CARDONA M.D. Performed By: #### G ANASTASIIA #### Point of Care testing , INR in Platelet poor plasma by Coagulation assayOrdered By: Jarret Garza on 05-11-2023 INR Coag (PPP) [Relative time] 1.4 {INR} Normal [facility] Comment on above: INR Therapeutic Rang [...] with mechanical heart valves: 3 - 4.5 Result Comment: INR Therapeutic Range A) Pre- [...] heart valves: 3 - 4.5 PERFORMED BY: [facility] [address] [facility] [place] [id number] PATHOLOGIST MANAGER APPOINTMENT GINA CARDONA M.D. Performed By: #### C BC, PT, MG, CMP, PHOS ####[place] [id number] [place] [address] [facility] Magnesiumon 05-11-2023 Magnesium [Mass/Vol] 1.9 mg/dL Normal 1.9-2.7 [facility] Comment on above: Result Comment: PERF ORMED BY: [facility] [address] [place] [address] PATHOLOGIST MANAGER APPOINTMENT GINA CARDONA M.D. Performed By: #### C BC, PT, MG, CMP, PHOS ####[place] [id number] [place] [address] [facility] Phosphate [Mass/volume] in [place] or PlasmaOrdered By: Jarret Garza on 05-11-2023 Phosphate [Mass/Vol] 2.7 mg/dL Low 3.7-7.2 [facility] Comment on above: Performed By: #### C BC, PT, MG, CMP, PHOS ####[address] Protein [Mass/volume] in Ser um or PlasmaOrdered By: Jarret Bishopomar on 05-11-2023 Protein [Mass/Vol] 5.8 g/dL Low 6.4-8.9 [facility] Comment on above: Performed By: #### C BC, PT, MG, CMP, PHOS ####[place] [id number] [facility] Prothrombin time (PT)Ordered By: Azalea Darioomar on 05-11-2023 PT Coag (PPP) [Time] 17.1 s High 9.0-12.9 [facility] Comment on above: A hematocrit value g reater than 55% may lead to inaccurate results in coagulation testing. Patients having hematocrit values >55% require a special collection tube for coagulation studies. Please contact the laboratory at [phone] for redraw instructions. Result Comment: A he matocrit value greater than 55% may lead to inaccurate results in coagulation testing. Patients having hematocrit values >55% require a special collection tube for coagulation studies. Please contact the laboratory at [phone] for redraw instructions. Performed By: #### C BC, PT, MG, CMP, PHOS ####[place] [id number] [facility] Serum globulin measurement b y calculation (mass/volume)Ordered By: Jarret Dahlr on 05-11-2023 Globulin (S) [Mass/Vol] 2.7 g/dL [facility] Comment on above: Performed By: #### C BC, PT, MG, CMP, PHOS ####[place] [id number] [facility] Serum or plasma albumin/glob ulin mass ratioOrdered By: Jarret Bishopomar on 05-11-2023 Albumin/Globulin [Mass ratio] 1.1 {ratio} [facility] Comment on above: Performed By: #### C BC, PT, MG, CMP, PHOS ####[facility] [id number] [place] [id number] [facility] Triglycerideson 05-11-2023 Triglyceride [Mass/Vol] 221 mg/dL High 35-149 [facility] Comment on above: Result Comment: TRIG ATP III CLASSIFICATION TRIG less than 150 mg/dL Normal TRIG 150-199 mg/dL Borderline high TRIG 200-500 mg/dL High TRIG greater than 500 mg/dL Very high Standard traceable to the Center for Disease Conrtrol and Prevention (CDC) test method. PERFORMED BY: [place] [address] PATHOLOGIST MANAGER APPOINTMENT GINA CARDONA M.D. Performed By: #### B #### [place] [id number] [facility] XR abdomen 1Von 05-11-2023 XR abdomen 1V [facility] Main [place] [address] [place] [address] XRay Report Signed Patient: Taurus Garcia MR#: [id number] : 1945 Acct:[id number] Age/Sex: 77 / M ADM Date: 05/10/23 Loc: Room: [address] [place] [address] Type: ADM IN Attending Dr: Jarret Garza [...] Aide Moe M.D.05/11/2023 7:15 AM Dictation Location: [place] [address] Transcribed By: [facility] 05/11/23 0715 Dictated By: Aide Moe MD 05/11/23713 Signed By: 05/11/2315 Normal [facility] XR chest 1V portableon 05-11 XR chest 1V portable [facility] Main [address] [address] XRay Report Signed Patient: Taurus Garcia MR#: [id number] : 1945 Acct:[id number] Age/Sex: 77 / M ADM Date: 05/10/23 Loc: Room: [address] [place] [address] Type: ADM IN Attending Dr: Jarret Garza [...] Aide Moe M.D.05/11/2023 7:14 AM Dictation Location: [place] [address] Transcribed By: [facility] 05/11/23713 Dictated By: Aide Moe MD 05/11/23712 Signed By: 05/11/23713 Normal [facility] Coding Summaryon 03-16-2023 Coding Summary HTMLBase 64 FnqeavlyWLt6hGe+PGhlYWQ+PE 8KIJAbQ56yuGSrnQ3aJ4JMMEuF OiioWYYMIYfWSsFuqrVbEK8gpO NjZXJu IC8+ZX6tMTBzIqehfWZeq7C4iV L2J97mfd7yYBhamHC0AMCsAoLr aonib4hpxFi5RHtnOwbaZmWj VDWgqF80LUQ9hD86Ps00rNVojV Ygw4fvxGz9VhDcLAAzPGC8dLer LPczc5KgDIDpC62oeCQuo7X1 TJYmbChykOKoYgAfxVY4kM7dLB pbstkif4trrdvhDef1ew73qLIq d5B3nVZ5U8MnslZ2UJYtaFUj QqtsdYDRmG0gtchii8jnwxohRb XwHQZwHVo6JIn9ZLAjqQxfLfBb AX95YIV2WEEkokGwF2LcUZEi wQbsQnV2p4X0Kf7BK4LLJmtlB9 VNTUFSWTwvdGQ+CB67tn60H6Vi FncrPhh2QXPzRPQ2mHA9tC7y RBMaDPexg6X8eGN4U1BdmmGado 5vy4kqTEVvZOaqK31lfLThy1A3 AGSmgMO3UQVttIxsTrEpgK20 Oyc+WWFimJyta9RrMyleq9zdj4 pdwDh7DykyKRWsxvYmmKkkCDP7 p7GiSc0yUYJqrIX7bCQ1dV4d MvVsDqX3EHasN395FuHxsPLxCw hxE61fU3HekCE+GPNbRww5PBXt tRnxRU8yE9NqXYWwslknyOYv rTyeXB7pEEJxhfbcWQZjeB4sVO LdL8v7XbSeTtT3PVgyC0SoXTYm xrmaSl28pT6xIySbKlT0LPgj N3DdrsS3UGKidFBmBTpjQWK4W3 1sc8K2YMVeOEMxXQM7xUH0aE3y bGlnbjogbGVmdDsgdmVydGlj RWekQImyC052DNYhpFnuAfRqPV luZyBEYXRlOiAgMDcvMjcvMjAy MzwvdGQ+OLDbESS8wKxsUDJy lEOhFSlcZc8bnKbcqRutRW0uLH GpdfpbORSavR5fZSHqtEOzgArd UI9lGTHowbkou460FcHgTXY8 VBKrtHQlS6BaeZ3nAcOhCVEfYJ PyD3LyhOKrHArxT214ELjdYrY1 EBItcgXwP8RvPZZczPapHjB9 s5E8Vx0Yh2IbduglB8YzbHUfIc DuWunnNAf1M9UyAamazIX+PC90 KRGzPB02ZGf0EIZ8jWauDIjl SPWoL3HgsM3yXiOfQAExPPOgAb c+PHRhYmxlIHdpZHRoPScxMDAl ViFasCrlHG7eVc5cFYPoROPk zNfozRWnEbOmz1lvCBXgEDffGV 4gjXisS4QjyYI5GDKsv9v9Dh80 B82pG3KteTJ+PWZdfBO7vNX6 fH3tQiIfWmS0TVefP141NxYyjW LtHhypx8rko1lzlBi7ZsJ8NURn ekPdpRtnHPL1m4PoJy17X05i IHdpZHRoPSIxNSUiIHZhbGlnbj 8tdC9rVt5+KRPvjMM9oMO3rK2s XkTyOzQ4SEaxZ332OrOpvDBh Mwbzc8rat6gcfGx0RnYrJSXvci BpmIyhXZT3b0TzBs01L2LetXup x3ZdTdg9ug29eXKgk0W9eGY5 Z4ZwGEKumdwbfLMwxFxuNT6dTR TgwxvpPFInbG7oDKOeS9w3BzWi WbR0XVdqA7AhivN6UUNfqKIk SPMwkNTJcS5cbcegc4dezirnSe HhEOWpLOe8WZm9ZYIdpDiwNpCm RHX8IwI4KRA1jGHmkX5xyMgt gyvzbX5cSgr+SRU3tLDupCWGCJ 1lOjwvdGQ+HVIkSNB7tEkiSIbr WOMjxH5wAQDqM7u0VnKxUuP9 PFwxM9WzogY7TGLvqVRvPKWkbP VUbB8gziock3mjkexqUmFqJSXo KBf6VBs5CPCfuXopBmBqHPL8 JnX0AXT1sRCnkT1ztMeiqetzhM 9wOyc+LmvinNbaDBF9ELv8I5Ty Akb6NXImpNrsLT6kaIXoVHvv Zb7vsOoxcFfcFM9jOCNjtlywg9 43OrXmr6gyJOOuaDXqVBcrLWI5 J48om7W0WYGxDJFoZUR9hIA3 oS1taHfglpxsiKYreCjsomJdzU meTHveFKkrU548PQNkqJgmEqZc WGr4Z8QcBve2WNKxsOpgFX4t rDHpOKtgRb7wvPnudKnaWV5eIV Rnqkgvw021SuFpu7zqYQIlkWBn CUcvPKY9P60ki7M8ZJYqUASk ACW0xSY2zZ8cgTbkkdoeuQWrjS nammBviNigMNrsPVqpT018XQKy yItgGxPprVh7B9AaZlr7UQQz kEbwBS1suNPuZAxwCe0dpXisiV ulCX3wRLDfvampg572WiIpx9ev IFZxyQIxRRcnVGJ6F27oo9Y1 XOJeVCAyLTU3pGZ9lR1neVqlud ogbGVmdDsgdmVydGljYWwtYWxp Q683QSXvbQquUyIvoPltavQr CRevZTd4F7PuGudoqHN+PC90YW DbBI62wSYedLHbe3uxfIl5WwRd OGXzSAM0qUjvIQhcn5JdCNJf S43wtTOmp1C6CSZjqAxshZYjGe EmeHT0mN9bPNsppscif4zrvtfl Swxsh8rwee15nM54X50gAUma JFHwNOLqZRDySRGlmXqdhn6wtX 9wIi8+WEGyqGD2bOT8wL3gNHGs IrG7RUjhP011ScXwfTUfVyce l1iry6iinLu8EtA8XWUzkaZmeP isYGS2z4QiOo16M97jEZqfJEDx JIIzYXRxIPAsqCpdad4nmU2d Ii8+MHWtcQN1sFL5nX0lZiAkWd I5OTppH810ShVbzNVuZravV58u R9DmxLZ+GAIyHfd4KZUnrLgy BN3umGJhARaqIv9qZVL2YeBbPl EgKIltA2UqJZBqjnfdngzqvYQ9 TUIsIJLlmK48Pd8peDkjNNZd iRCMeZ5jkqdlw2fgnkodMxSaAG IaFGd2OKb3PZYrdGcpJgTvWMV1 SzO4FYL9jIDxcQ2okKjaxpsl eL9eE3BzYZGoduwvJl58jY3aQe CmLnF2ADqhBjr+VEhPTUFTLCBD MYQQWGJYQTE2R0WaCuf6GDNc bJecHA3xmILeYAozZn7ihVubpF vkJF6cDQCniidaGNZziI3oFUJn fRFklKszXM8qYOJvmaueg130 YfPdHRM2OUJvuQZzE0NgkP2oDj LfUSItUPVsW3CpcBTnZPzmY251 DYrzGjJ2ONMeonSiZ2JqZRKn gAjtDoU1t4W4Dt0bOm5xZd8rKS R0BI37RY73jEPhn6C1vHA3F8Gq ZEFtkmjtsodpnZC7TOSiCKUf iX50pLVnPXiaIr2bo7O3o752HN SyWAAmcB38Px1jrEtsNTRutRMX hQ0jzjrcj6yghmuhUmOkZYTk IIp9XIx9AUEyfFduMtJtNNN5Kl A4ZZF9wJJtwH9llYjoobjpwW3o Oyc+NojiRWDoqrI0U6GpLqn5 KFHceCyaZM3gsHKiPCqoBq6ncQ rcfGzzZZ4fGTDmsprkVQCuaM2j CCOdnSFdfWopKL0vWPIxrhdq b217TjLiAAU8JTTyfJZaY3EzwU 8uKxFzBVZrOIWxP2KliGGfDQnw X161ONayZvO8QEOdhjPcI3Uq OHIvwLlaYhI6c4Z8Nq3BTAhBCH 06KP02yVYrg3X5qWK4T9CiBDIx orcpvmdflOC4UQVxVEYnqZ41 dHPnXAzyGf8cm3K9w550HFDyYJ JurX60Av5taCvgESOoeOWRwR6e ehcys1kpvhlpDnFdCKFsJAf4 YTf3TJHvaHydFcSwUDH0AvD1BW E2rDUeiZ2chVteajvosS2bXrh+ X1X8H3IeSautkKV+KL12CMRs PW29tFHxkJLfl9bdfGj4GcDoXF OrKFB8bHzmDEihf3FnTEKpZ17w wKSiw1X4CGAdqTmijKEbUvBa bLJ7dR1iNFddebydf3vtslgiUw sxt1vsij63vY13G08zOUaoHBXy YVPoXHWxKQAfvFpgai0nnS8d Ii8+XFLbyID3hFI7uL7jEaAwDf K8NCqkQ661XgWseRCnIsffi3ks j2zmqMf9JqOpIKRjzyZqnZgq NHP6r7WcVl00P44yUXbjXJZbOH PiVPYjELJviXwqxh1ixZ0iGm6+ BM1oz6mqol10dO28iWC+PHRk TZZ2tFzeKLynNBPxzP1mWChnWa R1GAAsTmEklC59uSHlJJarEr2g yEsdoZbfTY9eDWXwfglrb132 MlMye4vqYIQqgJLgHMeoXEI1C1 7km0M2WQGoMRMjEMD2aCE5xE8q bGlnbjogbGVmdDsgdmVydGlj UWnbRWvfX461WQGeuYelCoPftD EnY6ivhsHPPZ3kYuxjkIA+PHRk YZV6zArsHDbfBPZgwN0fLZBy B1c4ReKnYwH2YKxqO9RfhaR6EW RmdNSxYZKzbECMvR3wkayyw0ss xcwhBeYmXLSfFBc7NEk4GBOv vDkkIsOaJJC2HhG3NRW2pJDfjU 9knTojorewuB1hKic+RklOOjwv dGQ+KZJnUQT6lMmrSQwdDWGn pJ0yBYYfR4w5TrGtNhW6LPxiL2 DvywH4KVCzmUMrIAPzgYBUvM3t gmyio0mntowkXeOuKZXnPTw2 JCx5NSWmtDkmQkPsZJS4ApL9TH Z4xPUgsO3yvSdsjhvrsV6oRlb+ TVJOOjwvdGQ+TDTmKUJ7vTgz GFtdMZWzkU7jXXXdZ4u1KcEcSv Y5CKssB5UcwyR9MRBllLBcROCf aUITkX6cazdbo2uormodUpBw HZJkJAy9CWf6ZFOxmNkeOkJkJM P1TmV1JYA9vBJlhO3orQzjxkaj nD1zDik+UMK7WDU1KH54RI00 T4SpFdbymGAhbGQ+PHRhYmxlIH esWJFaQEuuQTIyNgWnrVzcBO1c Np0pSLLyQSIxqBdhlFAcLgWv b2x (more content not included)... [facility] Lab - [facility] 3 Lab - AP Results [id number] Normal [facility] Pathology Sendout Teston Pathology Send Out. See Report Normal [facility] Comment on above: Order Comment: Urine for Cytology Performed By: #### 2 [id number] #### [facility] (DEFAULT) [address] [place] [address] Miscellaneous Testing LCon 0 03-10-2023 Misc. Test Result LC See comment Invalid Interpretation Code [facility] Comment on above: Order Comment: not s ure if specimen collected second urination in the morning it is a drop off ..jwilkins Result Comment: orde red wrong and fixed today SD/TB Performed By: #### 1 [id number] #### [facility] (DEFAULT) [address] [place] [id number] Rc 03-09-2023 L ------ Specimen: [id number] Received: 03/13/23 Status: SIMÓN Katz Num: [id number] Spec Type: Cytology Subm Dr: Ivan Barnhart MD Tissues: A URINECYTO (URINE) Procedures: Cyto Prepstain, PAPSTN Age/ Patient Sex Location Account Attending Physician Taurus Garcia 77/M [facility] [id number] Ivan Barnhart MD SPEC NUM: [id number] RECD: 03/13/23 STATUS: SIMÓN KATZ NUM: [id number] SUMI: 03/09/23-[address]: Ivan Barnhart MD ENTERED: 03/13/23 [facility] DR: Carlos Bonilla SPEC TYPE: Cytology DEPT: [facility] ENTERED BY: [id number] RECV BY: [id number] ORDERED: Cyto Prepstain, PAPSTN ORDERED: Cyto Prepstain, PAPSTN Pathological Diagnosis Urine cytology: - Negative for high-grade urothelial carcinoma - Occasional tiny urothelial clusters are noted - Occasional histiocytes, lymphocytes, and rare PMN CLINICAL HISTORY: C67.9 Gross Description Received is 80 ml yellow slightly hazy unfixed fluid said to have been obtained as urine. ThinPrep is prepared for microscopic examination. (CC/nh) CPT Codes 55078 Specimen: [id number] Received: 03/13/23-1308 Status: SIMÓN Katz Num: [id number] Spec Type: Cytology Subm Dr: Ivan Barnhart MD Tissues: A URINECYTO (URINE) Procedures: Cyto Prepstain, PAPSTN Patient: Taurus Garcia [id number] (Continued) Signed (signature on file) Mira Garcia MD 03/15/23 1213 Normal [facility] Miscellaneous Testing LCon 0 03-09-2023 Test Code LC 623772 Invalid Interpretation Code [facility] Comment on above: Order Comment: not s ure if specimen collected second urination in the morning it is a drop off ..jwilkins Performed By: #### 1 [id number] #### [facility] (DEFAULT) [address] [place] [address] Test Name LC urine cytology Invalid Interpretation Code [facility] Comment on above: Order Comment: not s ure if specimen collected second urination in the morning it is a drop off ..jwilkins Performed By: #### 1 [id number] #### [facility] (DEFAULT) [address] [place] [address] Provider Orderson 03-09-2023 Provider Orders [id number]#[email or web address] Coding Summaryon 01-26-2023 Coding Summary HTMLBase 64 TdlpdrolEXl9kBm+PGhlYWQ+PE 7GCXTxZ36jeDOgpU4kI7KZJSkW MerdMFAVZSnYMtLlezEtCI7wqE NjZXJu IC8+OU3lLCKhAtkezFHxh7X4mV V2N82evm3rKIgdmYW2VQMlSaIh lefey4pmrZg4JRjhYqggDcCg QCTtzU51BTM3pO95Vo05sCOviG Gpi0eiqIf6NkCcGWMyGZX0uYcc OMpqc9IpMCLhZ12elIJhj4J6 LGOevPjlzJTeVhEnoOG4wU6wQM opskujk3qoshkaGbl2yd94uHAf t0K2oKC1W4VaugS3XPLyeFTl ZszxdRNObE8jrctgw9zqokeqJj NgRXWgAEv2LLp0GCTonFycAwDs NW57JDU9MXBqxeBwN1UjGOOz tTssZsE8a4W6Sz6TC8CVQdjmG3 VNTUFSWTwvdGQ+EF11cp47L6Lr SoniAxd4YPTqIES7pNY6gZ9f SMCxVBtof8U7fOZ0A6KgadQvnj 9sr5sqGBInGRftU54rdLZpf1F2 TWXqfZE6KMAgyRsuYtUnhG49 Oyc+PMQslDhuj2HhGzpbc9nlw5 knoMj5UjwpKICygqOvgQakEMA7 x2SaZx4tPNWtcYG0eOW2aK2s DbIuMcP5JSbzB006UoIqrIMcBp nzL10iX0JvhHI+ZEZiCgy1JDGa fSlmUR3sC7IaASOqycvfsDRj jKouKX1uTJBahzdlWAZxtW5yWF NcN8y3OoQiVsS4ALikH8SgCTFm qqybMf45dG4lRqDkDuV7OXrf H2QvjrL8OSRdsATlNDjcZJH5W1 7oa5U9FGBgDYZiXTJ0qCW7hF7e bGlnbjogbGVmdDsgdmVydGlj ZTmsFBhqS345ADFtnIwoDaDyGJ luZyBEYXRlOiAgMDYvMDgvMjAy MzwvdGQ+VDZnPUR4vAibMMJj pTLrLNjtNm0xzHmlpRdkEY9oBH QmhrjvFLMkgS7lMNFweVTevZsd PA1hQFRxptbkt472UjYkMIE1 VNNjtBNgB3MbdW5bSrWeKKMhWU YaA6RdpKDiZMcvE345PFmrIzV4 EUWeboLkU9OgJQVvaGmzJmD7 v9M1Nq4Ww6ZyywugP8TgcRXnSc WiKuspTSt6J8RnWwjuaLQ+PC90 RURkNS38OGh4PKW7nAgcDMqw AGOcI9RslL3wMjJoCYZcNRJlYh c+PHRhYmxlIHdpZHRoPScxMDAl JmWxfPofBV2uEy0qBGGaOXLq ePpfsDBvTaTdu8mhQRYdPNwzMK 8siKmiH0QtyMV1ZWJud4v8Wv22 B07cM7AslFG+LWBbqAA1dKD3 kE9xKvIpDmN2GVfxK699CxCxaE TtIepei4kqm1ocpGf1MpL3XHRo vbGqaSlzNIP3a6BhHr58A61v IHdpZHRoPSIxNSUiIHZhbGlnbj 2mzH7kEf3+OOEjsHG0dDZ5qZ6u YvCyCyF3CAfjH985FtAbpUKl Tqglx4imh2qebKr5XzGeEMNzdn EtsZaiCIV6p2FxPv94V0CprPpq z4ZhOhp4ki69yQPpd9W6oMO7 D7WdGPVraaywsCMorPooGP6qQA CobfhpFNOinL1fYDFwJ9x6LsZp IeO1IBeyX5KiusG5POGagNZv WKNtvZGHiS5skbnab5grhhjnWb XrXLWiKOd7UIb7IQQwiJeeZlGp PZU0TzR0ADI3kRVnqC4wmXmc fxtscH5gEuw+TGJ4cEOduRJRSG 1lOjwvdGQ+OZTfJZG8uPywJQhz GSBwsC9sKITfH7i9YuAnRxY2 ILgrC5JdezN1BLLozNRnNVHsfD UYtI6xvdkkz9tudokfFhLzEOAa VVx1UTb3CKMszAkfTjHdVAY5 MoM9KRI6eHAhmE7lgPjukjayeE 9wOyc+LgmqcKloMUP4GIt8Y5Jr Bca3DSOrlKveNK7syOShRTth Wp0ftTxkiPnoPI1gCVJlfuxun2 19UeHup1dsYASgnTQtHUprFDR7 S97dj9S2QJNaNTSsJKE0zSZ4 yY1vkBogviqssRTfeOhfshZrnN amNOyvHDdvC702NDSisWzdHiTv PQb1B7NwTmf9RCEfzFsgAW1f nFQlCFzzDq0jcWsdmZmdHX9jKB Ptiwwva721JcJlj8dyABQvfLHk HKeiGCH6B25vh0H8XCYpZTQx XZR2fQI0iM6ekAcngiulqFTsjQ wsdwGnkIsjXOqzADluW971LETw bFlvLqNulIp0K7EaUxc2WKHk uOcsJR6nvWTtXCjbFd1spMrytR rkOA5eABTqkopao984TnKji0kk DNTnkXUkDPezQDG1H34tq7F1 HOBvIKNaMMR2oBZ6oB4ilVitfk ogbGVmdDsgdmVydGljYWwtYWxp F222LBIjuNxnRiPjfSyxytEa DUdyKAf9H3GlKrohtKL+PC90YW DyQB86aQMynSFrs9qdfEg7YlLb TEHiZXJ4sCsqPCpfb4TgNCGa Y04zwXBef1Q3SIPsfAzxuZRhNo CyrYQ0kM9fGYvqzqmra6ouoenb Xokvj2ppgn72qJ78I12eHDtu OTLvOANrRXXnQYPumErdzo7vvP 9wIi8+OERieFR5zTK2iI4jTEXu VhS8AQumP788IdAbnEMtRlbi v0hsu9pegMc8VcS1PJJkuqNnaM rlPLW7h2DeXw82Z63gYOtjOCVx RARkOLOfAKMvtAvgsq7ydD2d Ii8+GTFtnYF1vQV8rF1yXkAbHn E5ODeaL100JhYvbYMrTvqyV12o M7FurRO+YCFgGus0ABSlwTly HV7ifFOeJTiqGt4oEBO0DmFoZe EsUFphE3TlVPQsvsjzckwjtDC4 JWAfFDQtoI97Im3vlWcgKJXp zVZIoA7hjrlue2zkifiaXrWdRH LdTKg6LRr8MUXqoShyWiOdSXA4 UlN5AER7sRKlqM7gyIlllcli cJ4bG2JlJYKtwbqpKn25nX3cBx EhZnU2RPwrQml+VEhPTUFTLCBD DOXNESRDMVX1V7KxRqw7WXAo iObrFV9vfSJrTWcmVw4fpVvchL spXB0bRPFtktwqNIRbwP8sSADv nNOwoArkTI9aJRVquxzri922 YzGjBFO3YDByoWGxW6MmaU8jNb ZgDUYnONDaK4ZmuNOyJCdwY587 PCqfCzL3KSTlhcMuE0VqFHOb lVcsTnI7o2O7Sn9nDc2dUb3yRN I5VY08LX05sBRij6G0mCI0I2Nd QQDgdhbfsnzxqCH3XWUdRZZt mO35xFUuWQthLd7cn8N6m445YV HmCFXluY01Vp0ynGifNFZfyVPY aH0abzlsy0fjwewsSqHkQVFp HEn3HJy6RKSiyRmgQxIpREY3Ti X9QKM9kBLvwI2gjTthisfqpK2e Oyc+AkszXGXmynV0H6AzAud5 WPIfbIrqGB1lgCMtXHweLl1taF cpnCohFR8xZZVlzrodJHHbgD3f AGJndMWnqQvmDL5iYKGrhkcb i970IcBaMGB0WJWccFCmK4IqmG 3iYeHhLRBoASLwO2HznVYfKEdv D546HLmnXuL4VWKfklMlB4Zs FNIfkZsdHdM8v7E0Rb9OHGcIHY 27MH54vUXuu8X0vBP1M2RdXILs wlotfkqvfCG2VZVmOUIenX97 wBLfDFhhMm0te6J7g876PYLpNO ZgqK88If4kkVgqWKMwwBBSiM8r crbah5vgupiwHbGnFTZhSHd3 AVg2SXOufBbiCwHxQVX0SaZ1CT G3wGJoaI4gaRhcrcrkeX4iVpt+ K1O3G8JkUkclqVK+SI85MOJz YG55oZDeuGAzi1rkkEu1RnHsFS PnEPG6xHczDZlve3YtHXGhB58l bCGca9K9COHkgNoeyXSfJsEw bFB5qA3cURqoxqpvy4dlqjcdVj okg7dfdj12aQ22U97sKPdcAGJr UYQdSRCpIFHmbLgjzm0vvE9q Ii8+MOKzwVD9hNK6pL1qQcLqDc M7WYhuV994JaEhuCNiDbiiz7mb p5nhePl4YtZaSTQpmuRhyRbv ULA7y3TlLo91I84xVHimOUMmVU EaKZIoIZHgpHwsad7qmW5gTa7+ JB3eh0bqki75cQ86qKC+PHRk UVQ6jYklRKazLIEygA9mCNftLx F5ROOcCzTyiR94cPWgLHlqBf6p oSrfnQxlKB1zEJZxhswxg732 ReUmf9byIKBfbVIhDMsjYCE2K6 8le3T3LACxSZFoPRF4dEL6dT0s bGlnbjogbGVmdDsgdmVydGlj OFnrRBchM593JGUtoRugUxXabO LyF2takxWBON5eGbcsuDS+PHRk GFY2oShqAFjzMQEqfE4eXSMw B1t4HmRjAcD5KOpmH2DxcpR7WS UqnGYaPQLvnLXPuY4jrpbol9hj eowuTdScYYLcTXm3BKh9TAPr rWbfFfRbMDC3IfJ7HZQ8pNKijE 1qxXarizqzdU7yKjg+RklOOjwv dGQ+GFXpCBU9cTphOFmcXEMp nA2cYMSpI8n9KhTcStV6SVvfT3 GqkhJ9CXAhvDGoCDPiiCOFgX0x yplol0vbclhxOrNyYTPwQRp5 MIf9MBNpeZwwOxMtSNY8UpU8BZ D0dBItwJ2huUpmrhyakR8nMuo+ TVJOOjwvdGQ+HGWeVDY6cKro SDicXOIesP0tCFUfJ2k8GgZmTs H3HQkhX5JurrQ9ZMYgiLQfPNWj mEJYwR5kzkdys0hweglxMkSb VMHpWJl0YMa3CMVlcSrwJqEuZY N4ExV6BGY7dPMvuJ3abMouwspi mS5gSrf+AJK5MWP3WS86RN70 C7RaMwlkiTLekAE+PHRhYmxlIH ftCPUeMLnkKKJwUbQreZsfCN4a Pr8sKCKnQCKicJpidGVuWlOk b2x (more content not included)... [facility] Lab - [facility] Lab - AP Results [id number] [facility] Coding Summaryon 12-12-2022 Coding Summary HTMLBase 64 QndatnmgPBg4iGu+PGhlYWQ+PE 7XQQXaN31acWWhcR0FZ6qRZW7I COQQSDEHNP5SFF2mbYN9VDxuD6 VybiAv RdgfyWTvGJ32EDs1URO9kKocKN ilxC6dySSuB6z6FsYnRI71jB96 ENblYBXxAzD5JnOxextiuZYg I8pmTbWfzBSwDts+PHRhYmxlIH xpJCPlEYjbRKXhWdRzvDnxZH3p Ns2nRDZtEUIlqXjkzCFgIlGn s9dzLGWpKYwdVB8tiKgjO4PpwU X5JCRly6x6Mo29tNY+PHRkIHN0 wAteOHmxd714LtScz6alPJU2 vQCfRHqyLAS1W73tq3U7ITJuMA AlNXZ6zVA7dK6zwVgdrxktG8Pf mSFaKcJ9SON3hLBwwO3hrAaa vhaxlU5sVho+H20OFX0JBJEXCF 0ZJtx8E9ZsXqrjpUJ+BB24KSKi UH21cQFtpBGmp6mqcNb3LqYs HDAoOXZ5hNxnWLkai6CuHLCuW1 3kjVXup8M2HGBxuPwbfXXhJpQj jRF2iU7vUUnsqsosc4atircz Jkvds0nfoq57oH62Y65nNIpmWH RjHYO4PHXbSQDmjLdsuz1ofV7z Ii8+TEyyo4jht3nqkRz4KyAl CXLksyHjnMkePPB5y6DdOa62G5 KacFwln8QcYlc2pb69dFBkh3O2 mPR0IJzgPIDacC0bNYrmSdJ9 XOFsYeWjjZ25nCCjBZxeFr6sxX hnaTfaFE7jLHVcdxqzGOLriT8a SUPppYPnpDoyKN7fYIEsjdki n755OxRdIGN9CCEsjGYnL0DldU 3hFaMnBIVaOTMaN0XucTGuPQhq K093LUveXpN9JBCwjrNrE4Zd ZYDudOdbFuQ2x2A2Ec6Ep6Qkne rmQQW1FBjrWXJ3PpL8UvHvIhH6 B8TnKju0SIUuwJgoCN5sX2Vo YKEgwjcubspaxRG2TLRqBHZovT 89mDGeDNnlRm7gh5Z5y293EDZi PODnsX57Fn0ovGccSYYjfJLC zH4nydspu3gvkspxNgOvFHDjEE y0HQk2BMZfcWjvOfKrRIT5WmJ7 WEM4vBRofB7agOhbgpcgvS7n Oyc+U23sqS0cSGN7RKK9zlyfRU PfxrArZX26RX10U0MyNcfjlZWd bGU+IOCncjCftInxSA0aGfIf b4mbr1DxFWlkM5WsVLCiJCtyCq r6UODpNPE3jST0aE7ySJXcBUmf u0N4qNV7H1LebyQvpk1jy7tg FAJhDWauH19byPKqx9V0ARNuuM T9XJUmaLihUsHxfJ94Ezy+PGNv hXupg4JsDkuou0nbw6rpoVw1 GjLmNUXioaLqaQnaTCV8g4VlAn 94B67sXZsxQJQzMHDeDHVqJPFr xDfhxb6bhS1wSt0+PGNvbCB3 hRR0tM3gZESlGvB8YBwsD074Gi KpxHUhLopbu1yhp4sarEq9CrLu TKGyjzYlhSafRLZ2k2DvOn67 X40aVUduCHVgZMAtOYNzQEDdlA sknw0qwL8dVu4+QJ2uy7yhbq46 hC85aEU+MZTvAKD3lZebQInc MEAsuU1bSVjtJjW6STOlCxEhzU 21eCGyEUjqBd1goJeudLfnZK6a EBFslaoao432WvLlf3srIYBi wOYrYZddOAD3I96ya3R0RHOmRD SoFCX6uLK2qL2igLoyhwmtoDVl lOuqfmFjoRkhEYfxZRknA962 IHRvcDsnPlBhdGllbnQgTmFtZT g0Y1BuFsr0ZUJjlTycUC1byCZb IZtwGb2msXlelZzwYT6lCHQb cbpqt888CyDqb4ssPMBslVQzKL udWWT9C97jz4S7SIBqXQIrMAC3 kEW2tL5ptGewnnodyRTzyUrz ecXfgHblMTbyQXoqJ434EQIesB keQyGtxtMiEZKymFT2GQ67GS74 eEQdm3U6eXL9K0LxRJMycver supyuSR5HXIzEEVcxQ00Jr7aaX aqAg9sULVcVZL9JTHtwNAzP8Nd iS0hBcZiKLZiQOZtK7GcwGWl OQvuP706QZlrNdH3GFZzccEkJ3 UxECTlwDynUkJ9v5Q9Wj0DG1D9 OF67FC36iBPui3W0zYZ0I4Fp UJTdecdewvjowUP8VGQxPBJyzF 13Cz2daIehSs3nQIEtZGV3INDh dVGaR0HdxI7zHiKgDKUyEEAv F6BosVXqUFecU854IYeaSlN3MD YsxwGsD0SxLEYfcVkkEpY1y8F7 Jf1REEc0HP67YY61hKIkt3V4 rPA7O2BrBAZhpgqalsbsuHC2XY EdNZGyfC12Hw4bjJpiOa9pFDHk AUT0HPQtbGAwB0RacV7fRtFw IQKhDQEwX1SveHYeYDisE689KG ouUuL7VLOvluIpH2RxIMHncKny JtL2a9M2Ti5QXMWcVY89LCG4 zYE3TZ69AX86F8XjMbechWMhfY U+PHRhYmxlIHdpZHRoPScxMDAl JuXyaKgtCY8gWp9uIZUvZQHf sXegeGRiSsPgy2zaEUYhWVebVE 5bbBjaG8LuqOY9RYQmd9r8Fi30 E42zM0YeiHC+SQGeuQC1lME0 xB1tZnMqRnW9LCseF143XfRlcB JgOpops3cec7ektNt8RqG6MNBw fdEyyIflDBO9r6UeSv76A59l IHdpZHRoPSIxNSUiIHZhbGlnbj 5fpZ2wHo0+YLEfpPT3rLA1aS4k TwDwVaS5ITzfX245XxEnmEHl Tstvl0rfg4ocwGx3OuMfPPUwju XyuWhcXMO0v6FiDc11D2AtiOsv h7BwVqn4ed75mIQab0F3dCV3 Q8BxVMPifrluwUToqAejJS2rZN KhhltsIRUbiI5iBNYzF5e3EqTb VrP4GOlqW9AlagL0EJOqkPJa FFvgGVV7P21sm9I6JNWzWLShWJ O5kXS6dF8xjSaekceakVCabTkj qpUwqUqnGVceFAmiY424NZXz uOzsGHDjfT4aMLXszJQsrTlsNG 4vWFDzkvzlNnAWO78FShckQ4rV DmpIAcJEDK74ZC18tGHfj5K5 wMV5I2RgIOGqcwsvetftkLN1PP LhBLMrvS55uUApDUzhBn4mc1J2 e079LEPsSQBhnZ04Xt8guVyt KMSehCUAaR3rnhqsr4lkleycHh LnDLYaGQp3WWe3TYGatRlyVnDa JBP0ZjP5MEU8qNJzwS2fdWey jgnddH7vSdp+NGGtOKMnHQt4CP wvdGQ+GSJcCIR4eYuoFSoyIGVs eN9uDSBfS4o9KiKfGhL5SKsx E8MdVBTloshnVf88lU9dCcLmHh B9CVpqT9JlieJ1HLUytTEiVNpz LFV1Z83lt9H9FTEdHWSzJED1 bFA3fX5cbOtpymoquSWwdSqsfk OsoVdnPPolZPvpX065PTHxuJfw Qwo2RQwdRJXdQF63AF07gOBv t9T1tLQ8K6VwLRGxpawrryzpfC O6YEDvYEQjuU69aMNbEYekEh6c g4Y0y045OLMeYQApiB64Ak3d bPabTYOesGHQpF0yasxve6udkm ciOiLcIZSgYYi1IEp3ASSwcWuw GyJfQZX3FkG6EXH8cFUanH4e nFczpjckyH4iWpw+TUFMRTwvdG Q+WRJjCOO9cZneBFeuGKXltU2v SIKtY5r3GoElEaO2PBiwK8Ru LRVwgttkNh68pD8mSjSjUwX3GE eqO4ZatnP8WHCdrPZqBFlqKMI1 K68mi5C9ZJEsVXZzGLG3lSQ5 xT5oqJtzwtwwsMAebAxrcfBfmP qyJSfbSMipN540ZOQxsXsqWgUl X5MfmkgjOtVFoBAqMJPqNT78 PQ91AS14I0UoKvkejRRdhQR+PH RhYmxlIHdpZHRoPScxMDAlJyBz lAeuGX3iKt1bZMHzQIElwVff hILwSnAyk4wgPZKuXBgvST5lfO itU2SwmLC2EDVup5l0Do31B93l G2ExlVF+TLJvbFO5sDH0tD9z LhRwKyK3TIkgY341VoPxfWCkWv ovq7srg3asnFt7SpVcDUGzytDv wMkqXOK2s9LeQy51K65jETxw NTDgWYLaYYDrYAJtjGrmie8psW 9wIi8+CMYssGH5pJB0nC1zYjIo LgS9TYcmD534BsWnpKOsWlwh H50sM6JdiQV+QZRvAht9REKqaP leDL2xrISxTVogKe9bIQS4ZxVr BjEtDJgsM1XaUERognwavtma uZY5ZRFrWAWylD29Mn6zaLagXs 6rJUDjADP4PZSkbVVpO8JnhJ8i SrIuYRIhWRJrN6UlxXVdYAyk P150JPeoQtN8TRSpdhMkA6RfNV KukYmqLgD4x6L1Ys6LeDlizDCa BB5tQjCmCNv3D0RcZur3MYTd gStdCL5ggNQmVCqbUk7hsNbppB meHT0uDEKlkujiw769MqLzr2eo FNOkiALaSRzjXLI9D76hd7L6 BPCgINSdMAJ3iPB5zJ3dmWcmjh ogbGVmdDsgdmVydGljYWwtYWxp Y999DXOrkXlqKvASBvt8H8Zn Aar2IHNjgZszWV7ubLTiXQrqGa 0qgOvhxFrfOK2zQPKhrclnf302 EsCeq1noUTVvsMVbWNxoUAT8 K96cy8T3USUzWGWdSAX3bQX6sL 1hbGlnbjogbGVmdDsgdmVydGlj SIuvMEzxK423RPPaxOeqIp7H Nem8F5JfWxb9YXYscFpnCC5dtG VkIKxaSg5lxDpekTpnYT0aZDXv pmkfu257YqSnp2zrYLJgqORp VBcjMXL9X72av5X8QSLbVJOyZN K1hDH2gW0faYqcybbcoWZaoTyr raDgnMzgIEbeGUerL293SBHj cDsnPlBheWVyOjwvdGQ+PC90cj 01B2MtVmqhLdn7DXFiKBN7uMN3 tQ3iBZYiDLbtf6J5fKT7L8Zd cmR (more content not included)... [facility] Coding Summaryon 12-09-2022 Coding Summary HTMLBase 64 DcjjkodtCWf7jYs+PGhlYWQ+PE 6IOMPhZ95czMEzqV6EV1nJYY0Y WSQUHBESDH3PTI2niYK1HUcxR6 VybiAv QvhnuCVcNF75CCb8VIY4dOirID muoX2fxTVlM2g7KlSpAI22vO19 DCudKJZtOqE7NcNoposgoOFb D7zaRlLrfUHwEdt+PHRhYmxlIH juMJKaDThdWKFcAjXmbZqdAT1u Cd5iZLDxEDPexXcnnSQqMtYn b8tdNZXxKGhfYH8pmCdoY3LveH V6KSUun5q6Yv83sXE+PHRkIHN0 aXweIDlgy664QpHfx2mdQRI1 pVXlSRcwTEO9W57zj6U8QVAvDT CvLOH6pYU7iL0qbHpbqeizJ4Yj iLUpUpB1ZTH7zKCfoQ7wgXpn rfzrcD2uCwy+U35RPN2QFJOOZR 7PEbw2C9VgYvvnkHD+RL69XROe TK06eMKanYXju8ckkQk6ZbBc MENvCUR6hHstDSjfm3DeEUJtD5 1ifYMll8O8MZHrjNmbhVQgMoSi pIL0cW2eHAwhhxeew0fenbco Medyz3yyxs69pR83A77aYXgmSD DfWUA4NZOeNAJxmQlaaw3wcA5p Ii8+HCmel8wvr5lzrRg6YoNl RZNvdsQeaXnkISX2f9OjLd63Q0 DejVcif3CvMlx2wq99cVXkv3O5 kYI2FRqzNTBusT2dRYbcPcW3 TXOyUvBzxO56cAKoKNluXm7mpZ wblKdaSL4aXSDtaewgKFFqkF0n ADUlzAOtbFudYN1fHGDuuskf y564PePmQPW7KOTsoMRqQ8NnwR 3jMiSnRQPyIJXhO1WjbBKuBFwb C485ZExmDfL5EFZlpcAwG5Gn BLDhjRrhYnI6x9Y5Og6Xp1Wukw rpGHM6OTnzVAY1QiVsRcRcYxZ0 M0KbVce7LWQsgIaqBN0yN5Gg CYHhcflsggxjuCY1DYFsXFVgqL 98dLEwHHtrBy9vc4R9u348VBMm THIilK90Uv7gdEavQVQanRXP cF7xqrssn5kcnsfcSnOkWFWeTH e1MTd3MSCklDhlCdBsPDF3KnD6 QPA4sJJmxU4ccGzfdkahqP1l Oyc+T94llF9wTOA5NUK9tvckMA KgoeQpCB26EQ11D3EcYpxrbYNq bGU+GCLegqGszTriLE5kDxNr m6pah5BwMRytM1PxLHViHLzkRm y4SKXuECP9tIC3uE2rPZUlWVfo p4D6yXW8I1NkjeVcrp8df7vi DEBcFNpbV95qbFSmo2B4WKEhxX Z7IEAfmZqjVzYpjH06Brq+PGNv bCvvu9IwRclbl4zkv0vgrEm3 NjFsYWLebrVoaNevREY1m7KeZd 27T37hIIpzKKQpYIIbUNHuPRSr cQprvg3txU8tRh9+PGNvbCB3 rZU6yO3zKFSaUmN3RHjlF872Ke JwyEMbYkhca4cyz8hbuCn6EdQm AGWwylFsrQceZGH6y7XwNv44 A78zGUxhNFLzMEWxQLQwRDJleP zjrw9ltO2nEw2+TN7yw6ojth46 uQ43lTQ+NAJmRSO5yZajMQbm JIKdnT7hCVatMrP9ILNtPcDqyY 34tCSvITfkKr8yjVcvsYpoMO5m NVDdnrnwa437NkLoe2ogBSOk cEStDKzlUOJ3C36kc2T2GDTkSJ NoZRK8iON2wG6evSbohkcunBVd rUxqlbTstGyoIGzjMFanH854 IHRvcDsnPlBhdGllbnQgTmFtZT t6E3OiMcf4JBAgdDaaJA4cpTXz TEufZd0uvKbhaDkhKP1dDGDk utzja056XsOpr4phQLNqhPNyTQ qnEGI4Z86wg0F6OLMrBGIcYWY4 tNZ4aA9bkGlllrakxIQqjQvb zyZxcFjkLLeoHAhaG754RUItgV yjAwGaugHaZHJndAC8HJ94PI50 qXJbl8A6sAW9M9AsOKKfklai gxdwcZK7ICWmMAXpyC68Dn9rpB oaEt3zJOJxDVU4TGRhjWCdD1An rJ8rJvBwOSXnHZYlX4MsuLRe EIinU336WQqbUwN1VILobaAsM8 ZaIZVtjSbzXtE5d0F8Gl2RT0D3 NV73KO68zREzm6H8rLX3D7Ij VBNoswksavlmvZB8RZZpLSPlqC 89Hc1kyLuxBq0fOIBiDKV5DYPm jKSaE1JxzU7qSgNuFGEfYXOj T6QhlHUuKMikQ260TMbiTcI6DO ScboZqT2RlIWTkmIniBoL7f7K3 Zl0CNLd0KL30BL66rAHlj7M5 gBV5D4YkMKMaoxhuccdiyHQ2QO PhLCCaoU33Lq1alJfiWg4bESVh FUO1PCIohKIfH0VcwM1jXhYe EPDpLTEbT6IzqGBxFVazM753LO ynFuK5MNBbnoHqX0TnHJVslKzj GvP5t9Z9Oc7HTMNsNV70OAW9 qLU2QZ41RF65Q3XjTwaqyXKdtA U+PHRhYmxlIHdpZHRoPScxMDAl WqMlgJueDD1bDv3mYNSgZNWw nZytwFAtYaGjp9mzDRHaEQxsDW 7zjPizH3FejDE1LTPcq4d8Jb06 C40yA1RuaRQ+XSRjpIE7dYK3 oZ8nTvVfWyM9GLlcJ453RsXngP LoDjsfy9agl5cfaTu8XpI6RSTp unMlsKcuQDN2r7UdXu73C36x IHdpZHRoPSIxNSUiIHZhbGlnbj 5elE4zCe0+ILSqlHB5zDC9bE1s XvHlEzB7BOiqD189IoWtgESu Loeay1qgh4umtKv8FxFtEYTdtq MadYnwQVR1f6QvJk06S4XkqXqy e2SwRrq1ir41fUEvq0P5uRJ7 X5BaKJQkznqmlCRukVqoDV2mNJ CpsowzKUKteY3lSZUmS3u7CeWu HhH1XFlzU4RmyzX6ETZueHEf XPwcKVU5P64qf5Q1QKJuZKWuQT Y9gAF5gO8srAjxdunjlDXpcThh ftNcwWibLGhlZJgmT650GTBr gWwvZTBnwS1jCASuzPAesIamQE 9yMLFfukbnHzXDM74ZAvshH3cO SmeTZtNRVN48MF98uTBgi6N1 aYS1O7WxJFNcldvgreabeXA6GD NtYVGmeJ38wLUbASxbYq0tq1R2 d764ZTGqAYOwyR91Be5cgDph HHTlkTRAbG4yvctyw4fbujmsId MsXCHnJQk8HJd6ROLyxFegZvFk OIL4DcW0IOO6kJPeoT0rjXwt xkhiiP1wTgm+MGVlZAHpENl3UQ wvdGQ+WMApHIO8uZyzPYtrSNPb xE9tCNFgX3h1MuBzFyR1LCje V5JjUKMgumhcMp64iP0cPgAcWv C8PFkxG4MatoE4TZLnsMFfQNse DEW6Q15iv0H8ZQCbBYRvYWG2 eYE9nS5vaRdzjtbdzIVrfArmll QdrQdeWVoaVRfoM902ZJXcmRrb Cps4NFkoYIQgZS62AL09cSWw h4W3lUG7M3DmCZEtqnifcnrthP V7UEBqSRDgxD00fVAoYFueCy1j w8Q6m275XUKnJUThaC81Od2j hHyqKMPxlRVKqH1ainkfa2hgdw bqVdHuILCuAGy7CLw5KLOfuNyd QuSjGEV4ZdW0HZI4aRPezS5y lCklybdorP1qPhi+TUFMRTwvdG Q+LQAjVKT8jMfdRYzsWQXxzX5c ZRLoN9d2PtQsWhR2UNzmD8Cz NAEjqbrcIf73jZ8wEnOfMsF5RX qwQ3OscqF2OZCdxXZaCXxxSKL8 V01kw2L3ETRhKOIlHOW7wAR8 eO9tkYlbpcnurNDesYamlzUvpT vvMCyjUYapE038ESMkqBtsBn0Z RV55WG25Q0TqMzhdkIFnaWS+ PHRhYmxlIHdpZHRoPScxMDAlJy FhrMsqFF2gOy7iXXHmUHLykGqq nBGmMyVeo5nzOTDjNXomET9n yGpoB3RfbIA1GKTml6t9Xp40F9 3bP4UteLO+YUOwhAY8mFO0rG2p VaHaNkK5HEcfE026QkClcXRh Bhqej6zgo5wqjZy1UhFoNQMwpq TelIrdXUI5p7GjTd28Y47mKPdh MEGeEEGfHDJhSJYdvGlehg0o oU2vIk1+OYQllLG5mIG8hE1dOq LzHlO5RZhhS762DfOzzYKzJqxp Q59uO5QfgHY+RFJiGxd6WWNl gFruMI9uiREdUMkdUn2wPOB5Sz OuBcUsDRmcK3VwGNQzvvqruswt jCM4WGKwMIBbiY48Vv3jeItu Dy9zHHLnMER1REZalEPvI8EfpJ 3hApPqDKOfCVBfV0XcxZEiJQwy Z791QQwzUdS1KAKpgcFkM6Kc MPXegEooKeP1b0R9Df0HaFdhhR KuBZ8fOmLjUKo1R1SpQwh6JVZg iSulNH2woYLbJKcmCr2tcWbe hLhuWX7oNRAbtbtpm677FyOsd9 bvUCFriSBeKInuXZL1T19ux9V6 JBBnZMBuFUQ7yPE9mR3abEcw bjogbGVmdDsgdmVydGljYWwtYW uxN918NFPveNtnHnGTQvg4S3Sc Idq5BCQcjZuoHM1ykEWkPXxx Xx6nuFxwyMrwBD1qMYRppgfqv4 18JxYnx5frYFPcxJRbFVfqQNB6 O83mh8R0KNJeFSDnYXT2xXW2 jM4ddSecajwauUKtdYbqpoTelL dkZSfcTReuJ611KFOgwVxqVu3H Xtd0S8UyLwt3SBAveKymTL3y aXHrGQylVp4uqVgttIpjYK6yNU Vwkrgjq508HsClc0hcUPZkeOBt TUznEAB9N36tr6P3CCXkCEOo ZBQ0hGB5wV1lwMqblvzayORkjO ugzjIwhJuhFDezHWzuB952XLTv cDsnPlBheWVyOjwvdGQ+PC90 ck04W7TbOqctGhn6IIIiPSN5uB K8zE1lFQWtNKiqj6X5jWT1C2Js zcMpas0ra7sxLZZaDQelN62c bGF (more content not included)... [facility] Provider Orderson 12-09-2022 Provider Orders [id number] [facility] Oncology Noteon 12-01-2022 Oncology Note RN placed coude cath eter via sterile technique. Pt tammy well pt stated little painful. No urine noted coming back into harrell bag. RN ask for assistance. , medical transcriptionist catheter further on assessment bright rich blood noted coming back into harrell tubing and meeting resistance. Harrell pulled. This RN called Dr. Cardenas office spoke to Marcy his Nurse. Dr. Barnhart would like gemzar held today. Pt stated that they have an appt with obey next week. RN educated pt and if [...] on: 12/06/2022 09:17 EDT] Joseline Dye RN [facility] UA w Culture if Ind Standard on 11-30-2022 Breakpoint UA [facility] Comment on above: Performed By: #### 1 [id number] ####[facility] (DEFAULT)[address] [place] [address] Color (U) Yellow [facility] Comment on above: Performed By: #### 1 [id number] ####[facility] (DEFAULT)[address] [place] [address] Culture? No [facility] Comment on above: Result Comment: Resu lt created by rule GL_MAGR_ADD_UA_CULT1 Performed By: #### 1 [id number] ####[facility] (DEFAULT)[address] [place] [address] Glucose (U) [Mass/Vol] Negative Normal [facility] Comment on above: Performed By: #### 1 [id number] ####[facility] (DEFAULT)[address] [place] [address] Ketones Ql (U) Negative Normal [facility] Comment on above: Performed By: #### 1 [id number] ####[facility] (DEFAULT)[address] [place] [address] 43120 Micro? Not Indicated Invalid Interpretation Code [facility] Comment on above: Result Comment: Resu lt created by rule GL_MAGR_ADD_UA_MICRO Performed By: #### 1 [id number] ####[facility] (DEFAULT)[address] [place] [address] 28796 UA Bilirubin Negative Normal [facility] Comment on above: Performed By: #### 1 [id number] ####[facility] (DEFAULT)[address] [place] [address] 17789 UA Blood Negative Normal NEGATIVE [facility] Comment on above: Performed By: #### 1 [id number] ####[facility] (DEFAULT)[address] [place] [address] 69629 UA Clarity CLEAR Normal CLEAR [facility] Comment on above: Performed By: #### 1 [id number] ####[facility] (DEFAULT)[address] [place] [address] 54732 UA Leuk Est Negative Normal NEGATIVE [facility] Comment on above: Performed By: #### 1 [id number] ####[facility] (DEFAULT)[address] [place] [address] 81505 UA Nitrite Negative Normal NEGATIVE [facility] Comment on above: Performed By: #### 1 [id number] ####[facility] (DEFAULT)[address] [place] [address] 16068 UA pH 6.5 Normal 5-8 [facility] Comment on above: Performed By: #### 1 [id number] ####[facility] (DEFAULT)[address] [place] [address] 68681 UA Protein Negative Normal NEGATIVE [facility] Comment on above: Performed By: #### 1 [id number] ####[facility] (DEFAULT)[address] [place] [address] UA Spec Grav 1.010 Normal 1.001-1.03 5 [facility] Comment on above: Performed By: #### 1 [id number] ####[facility] (DEFAULT)[address] [place] [address] UA Urobilinogen 0.2 mg/dL Normal 0.2-1.0 [facility] Comment on above: Performed By: #### 1 [id number] ####[facility] (DEFAULT)[address] [place] [address] Urine Source Clean Catch [facility] Comment on above: Performed By: #### 1 [id number] ####[facility] (DEFAULT)[address] [place] [address] UA w Culture if Ind Standard on 11-23-2022 Breakpoint UA [facility] Comment on above: Performed By: #### 1 [id number] #### [facility] (DEFAULT) [address] [place] [address] Color (U) Yellow [facility] Comment on above: Performed By: #### 1 [id number] #### [facility] (DEFAULT) [address] [place] [address] Culture? Not Indicated Invalid Interpretation Code [facility] Comment on above: Result Comment: Resu lt created by rule GL_[email or web address] Performed By: #### 1 [id number] #### [facility] (DEFAULT) [address] [place] [address] Glucose (U) [Mass/Vol] Negative [facility] Comment on above: Performed By: #### 1 [id number] #### [facility] (DEFAULT) [address] [place] [address] Ketones Ql (U) Negative [facility] Comment on above: Performed By: #### 1 [id number] #### [facility] (DEFAULT) [address] [place] [address] Micro? Not Indicated Invalid Interpretation Code [facility] Comment on above: Result Comment: Resu lt created by rule GL_MAGR_ADD_UA_MICRO Performed By: #### 1 [id number] #### [facility] (DEFAULT) [address] [place] [address] 38408 UA Bilirubin Negative Normal [facility] Comment on above: Performed By: #### 1 [id number] #### [facility] (DEFAULT) [address] [place] [address] 26368 UA Blood Negative Normal NEGATIVE [facility] Comment on above: Performed By: #### 1 [id number] #### [facility] (DEFAULT) [address] [place] [address] 65285 UA Clarity CLEAR Normal CLEAR [facility] Comment on above: Performed By: #### 1 [id number] #### [facility] (DEFAULT) [address] [place] [address] UA Leuk Est Negative Normal NEGATIVE [facility] Comment on above: Performed By: #### 1 [id number] #### [facility] (DEFAULT) [address] [place] [address] UA Nitrite Negative Normal NEGATIVE [facility] Comment on above: Performed By: #### 1 [id number] #### [facility] (DEFAULT) [address] [place] [address] 80078 UA pH 7.0 Normal 5-8 [facility] Comment on above: Performed By: #### 1 [id number] #### [facility] (DEFAULT) [address] [place] [address] 49300 UA Protein Negative Normal [facility] Comment on above: Performed By: #### 1 [id number] #### [facility] (DEFAULT) [address] [place] [address] 27984 UA Spec Grav 1.015 Normal 1.001-1.[address] [place] [address] Comment on above: Performed By: #### 1 [id number] #### [facility] (DEFAULT) [address] [place] [address] 91461 UA Urobilinogen 0.2 mg/dL Normal 0.2-1.0 [facility] Comment on above: Performed By: #### 1 [id number] #### [facility] (DEFAULT) [address] [place] [address] 83029 Urine Source Clean Catch Normal [facility] Comment on above: Performed By: #### 1 [id number] #### [facility] (DEFAULT) [address] [place] [address] Coding Summaryon 11-22-2022 Coding Summary HTMLBase 64 GgwqsserOYn3hSo+PGhlYWQ+PE 4JRENdL68czGHhgR3MI4dXWX3U VIPQXSFQON5YFR8dtCT6BCxyK3 VybiAv FeziqZHbWT78EEs7UUB5sGcdRB bncW9mlVNrB5q3FmDsKL92iH90 FRfjSQSbTxV6XsTnylxraPFg U7xdBzHxbIZnTtx+PHRhYmxlIH fhAXUdLVbeDPBhVjShxRxjIQ0m Db6gSMSxCVZzoVhsoSQwLoVt l6uqSPOaZZxdYU2mrMbyA5MaxM G7AXJiy9m3Eb45yRB+PHRkIHN0 wExeAZqot848BcXfu2djCIJ5 qJFoAHlzEXT0U83kp4B9DILhIH YeDMZ3fBG1lW1msZjwwicbU9If fGKuYxI2JQA0jLUtiB7guWai smnsfU3nXkz+N84SSH2NBEXBMO 5NDye5Z7OdEtuovVP+FN13PXXw XI40nPTskRIhp0hpyPp3JgGj XILnKUN9oYjpKBxxu5MvRJGcI4 1mtMAbb9M5LHAsoHxkoGThWtTv nJR5uT1hTXjlvcklr2zmqgln Yukex5kjbd20hG46T02rBFnpSF TrEMO4LGTkHGNkhHkldx4sxX7g Ii8+NOpdt6avq6emmJg6XpOy DBOezvArmXjpYNX0z2PkNr21G3 ZonThqg7GxAvm6sr72wRNau1P3 vNW4UWbaKKTaoO9mJVgaXzW6 VGDoZwAxeA94wMXuISykJu2oeN rooWujIQ5sBACyuooeXTSbxG7l APMaxPFnsWgvWB3lOIPjvxgj g476UrMqICW3EUSrvUUuG8GxjX 8lRqWvFHXwFDOqF6JxhKMaRClp N153ZDpfLiV6WGLjnoVbQ0Cs KFFfjFahLcI1p3I4Wh5Xz7Grvu qqFDS4MCpiQBV4WmE2VnUkAmQ2 N2FdIwg4IMGgrFdjUZ5aX7Qm PHJftpmhignhsKK9RKAjDMTmoS 44fLPiGDehBn7lk0T6r668VPAm ZWHvsA55Bg1vpTxgAWRhsKCO oK0jpkmpu0cmpyhaOeVsMXAzJY k0MDq4TCDlbFjpCpWiFMM6RgK7 SEV2vDDchU0gjIifzirjfA9e Oyc+I22pnH6iFDX9SAN2xbweFL MilaGoLD10GW25L0CrYwtfgREs bGU+XPVfkpMxfXvwHX0hQlHv q2ffg7FwOBciW2InDNDhBDrgTg y4YDRiTUE1tWY1yZ4zKJSjYLyf g1U1qHQ7T5ZfysCasi6hi9tk OPNgIIinF13llPMqq3Y6HBMjzV X5HCZfjVbpPuRzzD62Ylu+PGNv dMzrq5VmXaouo6qll9eanLu1 LhNdPFYipaPobAprVVK7j4ZcQi 93T92nJLqxRBGxIKXtMUYzLNNi fCghot3gvB3dQl5+PGNvbCB3 gNV6rJ1zHQCmImU0ZReeK277Dv TwrNLjTnrax5sbi3pimCd5GhDj DXOonuQtmFdlXQS1y1WaYb27 J07dBApsMWEiPNTgIDJrRINehF xnry0eaD3pXx0+UP2vd7uzxn61 eY08oXX+DOYkAML1wVkaJWgg TZWmiZ7kONlbTcX6TEPcXeThiT 19sCSbFFxqOv1syRhcrWjjOT0s DNTjfmjzj561JdNuu7ynHOFc nXFkTUwkHWV0H62ng9G9CRWrGB AaGKU4hAV3uM3wnXpoevqfeIIl eTfklbAmxJbaOWffMPvhE445 IHRvcDsnPlBhdGllbnQgTmFtZT x7B8TaTws4PUZrzGpqNZ9evGEe GHcpMj3bdDibeLtwJK9sEBKz kwmsu462QxNda1giCPNbmHJkTA hiRIM1F77oz4A1AUBaVAOzNYK9 oRD8wG3olWgicofyyEDwaSvm ttEjjMjvKUwtFFswS777GURvqL bfSwHatjSjSVDgxDB8WZ02NC80 xZQsd2U7iAF9C6OrADBxhblk yudajNI2UIDoYDQcqG41Ud4xqZ ypLq4pFRNwFKJ4EHQobBWrX6Za dE3bFkCfGQLvTEXzV8ZwsDJi UQkkT023YAuuKoJ5MYLgvpOaT8 KwYKYvdIfoCpY5q7J1Rp1VC5F0 JN91HU13lDClp4N6bYN3F6Ey YOPzjnurtdnnaGU2GTKrUWFtbL 60Qv4ieJhyOo4wRMJkHXO1FJXr rIPhI0OqxO0vVlFzNWFjIZSh D7RpaYBgLIodQ821KHjvMkG0DY JiafCkU1NdVEZkbWgtGmQ8n5N9 Yw2MWWz0HT75BZ64hQUez6R9 nJG4E3LkSRFzqhorjklcbQC3LM QsISYahC71Eg1yxWzgZb1bLQKp SRI9FJVawJSlP3SemU6ePlMq IYTfEUDaW2HbaWTlCHvxR422WE txNqQ9ZRKtdtGsR0TaSXQoeMvw AsC8i0D4Kr6MBVFkJK17JZX0 yLT3GX72XF23Z2OfMuvubWLdoG U+PHRhYmxlIHdpZHRoPScxMDAl LiXihWadFO1kXw0oCBCqLPUx lNdkfWXrOqTyf7ffVZDwJGgjPG 5ndLxjO3WiaMT4XUDey6l2Ax83 C32iW1ShtQU+UOOqsFE9kJA0 lA2qWqXzJaE2TYdrY770QsDevF NnJzfxy5hhr1yzkHl1XnN9CXHh pqQdoTxwSGB4t2GbTr71Q94i IHdpZHRoPSIxNSUiIHZhbGlnbj 6kdR5sNe0+RPHktKS7wHX9oD3q JmUpEcU3NDfxW464DyEpoLUm Rritr5ikm0mxnPx3CgOrIQLssj KkqQpwMXI4k1LzQm17M5KaiMts b0BkCle8sw92vOJmy3T3qPS4 V6FcZJCdwjbvxMGbvFzuPS1vJA FsylrdLOBicF2rBMThC4o3WkOz OfN1MHqqK1CgdbU5NBYgrDFi WNweJDY8M87ht2A0CZDsRPMnUP X7tAF9eW1wrWmpwbnqkXDnbDek hnKrrMzpOVtbMQehB488EKKs eHdsZHDlwX0yRLVvsUDdcTkaXO 8kJUDfhnswHsJGM68XXcshD8kQ PrpTYxOGHG88SX30oAAyi9P7 bZV7N9LpDZUpvsxtrejzzPQ2IB AtCDFsvU21cCTqXYdtDo0rs0E8 i415PYVuDYVplD89Is5vdYox QBVupLDWoQ9vwcreh7jlfkmmZy YfNXQaBLp4PGm0WOYxsRxbGyIi ZGC5IiM5KUP1bXGysF4uhLnv lxmbxR7sMsi+HKNkBXLuVWi7KI wvdGQ+HMBgWHN6bZfiUSuvKTNo yZ7qRDDrT8b1GtHqIsB9PSjp E7QzWHVzxjvsTt01wD4rNlVjVd X5NVtrY4InjgL2XEYthCNoHIvp UKC1L47fg0A3JGUzSWAoNQK0 eQU7aW0fxPzddsnnyWBrvFaveh SpkVimFZybLIpzJ662ETYjyOzs Szc0SUuoXCCcAD43ZN14fISm y5B4bAT9T8XgAPIszbqzuqfjvW K2DRBwOJJwfL88xEPfEUnvJp3y v3R4p927BDYiULVviE99Lz9y dMbeDBVsaXBKnO4xkdtcp4bldx opAsYcVXOpSOb9BXf5RKEqlQtm NiGmLVB7EqS0TAI4hOPofH3t gShegwipjM7jMsu+TUFMRTwvdG Q+WGYmZUC1fCnhRIkxHTEdlZ2c ZZFiZ6h0PnCfTcF2MWljS5Dr QDVdofhiRt14bQ7tOcThAjM3DP jtE8SdhwK0JMYzeZQtDUifUYK8 L60sn1N0YOZrKBJhOLL6aMR4 gD4ptYwjipueeHKpfYkmssBenS sfLEjyCFubB770YQEygJftDuFj V4GaagqxKbEYlWFbYCAkLP36 FN92IF68E0JjIyxpbBZsdJJ+PH RhYmxlIHdpZHRoPScxMDAlJyBz nVmpNC3rOl9jIKGzWTCmjSxl nRMeMyImt7wmZJTfPOsvDD1rhV xaA5HnoSE0EESmg9j3Ak70J96p Y9TwdVT+FIZjjLX2wPH0aF0r TbIjYrJ9LJhuG427OjEleSQuPo evr8umx8dmkWa0XmPeBKCtlqUk hZjjHNL4v2RnFx47E40pLPql NAIsIPJkLUMvOHQmiKsiyq9wmJ 9wIi8+ERBgyNR7mVQ5xO6ePxVv RsE6NHaxT955JcHcwKEwCzlg S53hE1SuyLP+DFDzVgj2FBPypC wgEY5iaTPgPGilTu3gLMX4ZbJz NkAuYUkiX2GfXMGpmomapgkj vVQ5HTUyJNFmcJ85Zg9doEttUo 6lCQHtHGK0FVXteCPoN2MrsS8r ZeQcJEJdRCWjA2BrhIVuDWob Z694QAmsKaW3JEEljeQzO0QoUI XpfJnyNjD2p6C3Zs7JfCqiiBXx KG8oLeLqDVx6W1ZmYqd7AZOf wKwxON6uaVRtVXbfYj5uvOgyqJ rvGW1uQZWohubfd613KtLsh8wo JSIujOYtBIlsWYQ2L61at8T7 DSJrBYQuETV5oSV8qO7ezNbycc ogbGVmdDsgdmVydGljYWwtYWxp W244HIToiRdoKlZBIgj8G3Dl Nxq8HDVmlYiwDT5nkUFpOYylYr 5myCkvaXuqIA4fGRYwzcvbl134 BoPof5zwMJTrlVIpFLgdAYT3 Y31hd0H9QMWrBSDpGKS7oND9qP 1hbGlnbjogbGVmdDsgdmVydGlj TKspYUtoB153KLWoqNarFz6T Itp2W3HcEcv0EBPgzCplUV6lqD LvXNpqCd0duUbibVxpIW3rZDWl zgnhd283PlBkd9fqCNUfdXIn YZbjVSX0L19aj4A1XGWyNEEwCO J3bSW1zD2fsWpclkazyHKacTmv sqLfmXwdAIxpJJjwJ646SUWv cDsnPlBheWVyOjwvdGQ+PC90cj 70L0ZbFkddJpq3CZVmHZG5pUS5 oM0kJNHtIVyzg5T4aCQ4M2Pf cmR (more content not included)... Normal [facility] UA w Culture if Ind Standard on 11-16-2022 Breakpoint UA [facility] Comment on above: Performed By: #### 1 [id number] ####[facility] (DEFAULT)[address] [place] [address] Color (U) Yellow [facility] Comment on above: Performed By: #### 1 [id number] ####[facility] (DEFAULT)[address] [place] [address] Culture? Not Indicated Invalid Interpretation Code [facility] Comment on above: Result Comment: Resu lt created by rule GL_MAGR_ADD_UA_CULT1 Performed By: #### 1 [id number] ####[facility] (DEFAULT)[address] [place] [address] Glucose (U) [Mass/Vol] Negative [facility] Comment on above: Performed By: #### 1 [id number] ####[facility] (DEFAULT)[address] [place] [address] Ketones Ql (U) Negative [facility] Comment on above: Performed By: #### 1 [id number] ####[facility] (DEFAULT)[address] [place] [address] Micro? Not Indicated Invalid Interpretation Code [facility] Comment on above: Result Comment: Resu lt created by rule GL_MAGR_ADD_UA_MICRO Performed By: #### 1 [id number] ####[facility] (DEFAULT)[address] [place] [address] 72547 UA Bilirubin Negative [facility] Comment on above: Performed By: #### 1 [id number] ####[facility] (DEFAULT)[address] [place] [address] 40765 UA Blood Negative Normal NEGATIVE [facility] Comment on above: Performed By: #### 1 [id number] ####[facility] (DEFAULT)[address] [place] [address] 99278 UA Clarity CLEAR Normal CLEAR [facility] Comment on above: Performed By: #### 1 [id number] ####[facility] (DEFAULT)[address] [place] [address] 99280 UA Leuk Est Negative Normal NEGATIVE [facility] Comment on above: Performed By: #### 1 [id number] ####[facility] (DEFAULT)[address] [place] [address] 79117 UA Nitrite Negative Normal NEGATIVE [facility] Comment on above: Performed By: #### 1 [id number] ####[facility] (DEFAULT)[address] [place] [address] 60756 UA pH 6.5 Normal 5-8 [facility] Comment on above: Performed By: #### 1 [id number] ####[facility] (DEFAULT)[address] [place] [address] 35533 UA Protein Negative Normal NEGATIVE [facility] Comment on above: Performed By: #### 1 [id number] ####[facility] (DEFAULT)[address] [place] [address] 65272 UA Spec Grav <=1.005 Normal 1.001-1.[address] [place] [address] Comment on above: Performed By: #### 1 [id number] ####[facility] (DEFAULT)[address] [place] [address] 56629 UA Urobilinogen 0.2 mg/dL Normal 0.2-1.0 [facility] Comment on above: Performed By: #### 1 [id number] ####[facility] (DEFAULT)[address] [place] [address] 24184 Urine Source Clean Catch [facility] Comment on above: Performed By: #### 1 [id number] ####[facility] (DEFAULT)[address] [place] [address] 60674 Consent Formson 11-11-2022 Consent Forms [id number] [facility] UA w Culture if Ind Standard on 11-09-2022 Breakpoint UA [facility] Comment on above: Performed By: #### 1 [id number] #### [facility] (DEFAULT) [address] [place] [address] Color (U) Yellow [facility] Comment on above: Performed By: #### 1 [id number] #### [facility] (DEFAULT) [address] [place] [address] Culture? Not Indicated Invalid Interpretation Code [facility] Comment on above: Result Comment: Resu lt created by rule GL_MAGR_ADD_UA_CULT1 Performed By: #### 1 [id number] #### [facility] (DEFAULT) [address] [place] [address] Glucose (U) [Mass/Vol] Negative [facility] Comment on above: Performed By: #### 1 [id number] #### [facility] (DEFAULT) [address] [place] [address] Ketones Ql (U) Negative [facility] Comment on above: Performed By: #### 1 [id number] #### [facility] (DEFAULT) [address] [place] [address]446 Micro? Not Indicated Invalid Interpretation Code [facility] Comment on above: Result Comment: Resu lt created by rule GL_MAGR_ADD_UA_MICRO Performed By: #### 1 [id number] #### [facility] (DEFAULT) [address] [place] [address] UA Bilirubin Negative [facility] Comment on above: Performed By: #### 1 [id number] #### [facility] (DEFAULT) [address] [place] [address] UA Blood Negative Normal [facility] Comment on above: Performed By: #### 1 [id number] #### [facility] (DEFAULT) [address] [place] [address] 76270 UA Clarity CLEAR Normal CLEAR [facility] Comment on above: Performed By: #### 1 [id number] #### [facility] (DEFAULT) [address] [place] [address] UA Leuk Est Negative Normal NEGATIVE [facility] Comment on above: Performed By: #### 1 [id number] #### [facility] (DEFAULT) [address] [place] [address] UA Nitrite Negative Normal NEGATIVE [facility] Comment on above: Performed By: #### 1 [id number] #### [facility] (DEFAULT) [address] [place] [address] UA pH 6.5 Normal 5-8 [facility] Comment on above: Performed By: #### 1 [id number] #### [facility] (DEFAULT) [address] [place] [address] UA Protein Negative Normal [facility] Comment on above: Performed By: #### 1 [id number] #### [facility] (DEFAULT) [address] [place] [address] UA Spec Grav 1.010 Normal 1.001-1.[address] [place] [address] Comment on above: Performed By: #### 1 [id number] #### [facility] (DEFAULT) [address] [place] [address] UA Urobilinogen 0.2 mg/dL Normal 0.2-1.0 [facility] Comment on above: Performed By: #### 1 [id number] #### [facility] (DEFAULT) [address] [place] [address] Urine Source Clean Catch [facility] Comment on above: Performed By: #### 1 [id number] #### [facility] (DEFAULT) [address] [place] [address] Provider Orderson 10-31-2022 Provider Orders [id number] [facility] Coding Summaryon 10-20-2022 Coding Summary HTMLBase 64 NekqrbswMSq6qGg+PGhlYWQ+PE 0WVGHrN67acEYavU9TS7iGJT9C QGRAUQSOTM8CQP4xgUO2WKarO3 VybiAv IgtihHBoGC15BUo5JGE0tEhcGS kniH7pbJItA3c3DaBhXN02yI26 CIyjMPYcFnG1YqWoskoevNBl R6bzOfObjZTzUgo+PHRhYmxlIH njRXMgZIwoQWUwAeSgvXqxHX5x Hd2xHVZxXDOdpAkvfEKnEcKv m8hkMFFiKMbxPW6wcDftP3LweP C3IEWez5t2Iq35bIW+PHRkIHN0 eCgoSMtng431FpUke2zkEVL3 mQWcSMytEMD9A09um4T1EKCpWI WuGML3vVY5uK7qrFibiehwG3Gh sAFyIhA7PEY0lNEzpN2wmKwy yfkhdK0yAnl+H62AWY8SGDEPRZ 1EIvs2L3BlRsvkhRG+JH93QCVm TI34lCKtpADml4mwdSi1YqJy ADNiQAH8cOmxXRuyw4VlPZWvO4 6avZGso7G8PCJuhEwgsYCoYqYg rZA2vU7tBFymseitp1oukfap Zinsy2czff60aU26E71fZBwhPU JvFKE1SIUkDIDctEjpka2paA0m Ii8+EElfy7cwd7iyjQg3HjJz VZOwftYzeReuVRX0c0XuPh74I0 JhrAdxd8AlRsq6kc51dFXva7K0 cEN9STmjNHKmbM6kZTpzQhD8 SZUrJtYoaP76yRJmNUydLb4nmM mibSgdQJ6wDXTmfvbuQXItiX7x DWLwgKSsbOwnAE2rKLJxgwxb e347RmDzGGJ0FIDwnIUrV4LxaY 1eNxBoFFYaGBAjW5NvzLIoKKbk Y016THxyPoS4AOJxvxOeA5Tu YKRrzJgqWdE1h6R4Dt4Xa8Rtxj wwXCU1MLtrONYhMdQiRfKpPfB2 Z8XtKdz4JXTucEccJQ3fI6Gk CGQkhbxyyugevAF9NFQoTOIegF 90cXWxOLbeKh3ki7X3h002DSDc AMEhoF51Dl1hsMwkMLJaaYOW xB5bbrhpd6eiwihyPzKlYBGoDA x3MVf0PVNhvGfeKsQiRHB0UwB8 WAX0eRGicD0ijQovfqntgM7n Oyc+Y00pyT2fXQY0IZX4lgyhOH OcjvJpED81BE48P8AkCgmsfWIz bGU+FRVzdkXvkTwgQC8nLiSd j1yxd3HvMGidG0ScXETnXViaTg w7FAWhAGD8hZM1aC1eKCMtQPnp r2I7gGR7L8OwdnKfya8fm0in PMCxSZeyC19kaAWru0J8UDQmvS T0TDEbmEvwGoKtrC32Kpb+PGNv gYxml9OkZhqos7otz8fatZs4 AzOlXCAjglYutMalENE2r2RzLn 55B10uZWrlYEMpSARwSAJoNDLj zYifgf0erA7iTp1+PGNvbCB3 gNP8eO1gVLXrGqH7LLdvP146Xd AdlQJrUmeqi0cqk1qaqQd3DbQu HMQdzoRyxYljHGE1l0SvBg03 C23jXFgjREFbBXLiFDNfEMVthS dxpd3glJ3xFl5+BF1qo8jxhu90 hC28jTT+BZEtHOH4wKfpNItj SLVkiG1jZGrvBnB3IJOiXdHphE 52yKPzKApqXv7scYmcqSfnGD2a DOIskfvpo207BlLgd3pnFODn rQEuEOltPDV4F41ge1P0NCDiNI EsBET7jLK9zE0glPklvxixxLCc mZppjaWzhSpgTGphLJsbZ579 IHRvcDsnPlBhdGllbnQgTmFtZT b0Y3CeCbq5NFFgrCppVA0omDCj RTfcKe1xeMtokIguZQ6bNWUa ucigg670RfRbv0zfWCSamWDvES dlOJR9U01qk8Y2MDIsLCXcXQC3 iOD1hI1cnEeacorpjZMmbVre kxKymMwpEFxgHTlyJ047NAJlrU edLcBwfaClKXHkgOL6WI23MP46 zTMqk7O6eJD6U8IiAUTpqqiq pgfeeGM8VRCsMUCxmK67Og6mqI vxKg6pVBQoPMS2ASSbwGUnN5Hr lT6bMsPgLJMnOWOaC3HcqXEf UAriB152VLdkWxB6JRIzlrViI6 TxRNTaqCyvNsF9n4L7Pm7YE9K0 EV49EU89tTVmx9U0nHN8S4Sj HZSptrhjwrwmyBJ7YRFcYHKxwP 68Ky7dxZaaXo0hERMhAXU5XSCi iYGyW8XfiZ8vCcPcTCYqLRRa K8PxzEAcVNecT984ZPxxRvQ9GE FwckUqC9JfYMIhcFqrZcC9d8P0 Zr2XQQg1BY09ZG49lFIbq7B6 jDY1M8GbMKCqjzjkipcvqCO6DC UrCFGzsB12Ck2biFbtMl3jFQJn EMB5AKDslGJkS5YchZ6xHjUp YYGjTKYfM9AlcJIlQVvgH925AK mpKoR9ITAqgqZjY2RsGSPpyGia PqC4g8V0Yw7URUJfGU93IKK6 uKY6WO70TM63U5KzOpagmRAcrW U+PHRhYmxlIHdpZHRoPScxMDAl OuTifWdjLM5iWp2mXRCrJDJq xCsmfRIzHgVzw1ylVQDtDIfjFZ 2ghFuzV4JenHF8UJCtq9w8Vj35 N80tG2WbwCH+DETwcFR1zDN0 wZ3oOnLkKeH1QMigE268KqQvdB EaCdzgr9ggb4wwtWb4VhJ2SLFr tuVsuIhhQVH4s2AcMu00V95j IHdpZHRoPSIxNSUiIHZhbGlnbj 2xxT7hWu3+YTQprIF7xCI3uK0a UjOiHzV8ZFeaP336UnDqpVIc Voazg1edl6zdxPa8IxHoSSPrjp IxuUlfZYW8q4ReHf64E7JnmJju a0YtPjj1pi41hWHin6H8sYM9 M2QkXEUgestqyOKqvYiqZM5pZQ MzsnoxPRQgjN8lWEGvG1m7YkPn JtH5GRptN4GhfeT2JHGiaYWr ZNqgCWJ7Y37lo0Y2CXLePQFtCH I6zBH7tG9arIzulnsghLQynJhe zjXzqAwvCFmpDXkpY415VKCm hApgYKRyaX6iBBJfoDTuyNmkPL 0uZZDoclfaFwFUO40WXxyhB7gU BmxPRhHGGX16ZJ55eAYme1H8 dVP7X6GoIOFsvoudxyxrfBN3BS GhRFJdtN10dOFmMHfmEx3vg6W7 g634JIRnUIWmzS91Ju4bvMad PEDaoEHYsO7hepxth5xinfbyNs BzEYBkIKg5GZe1YCAyhLirQyEw BSE9PuO0LBF2qYLwxC8mmFol vabirL3pZeq+CORdEXNcUCa2JT wvdGQ+QNNsEDG4zEfcQEeyQUHk yU4zLABiT4j1NhMbIqT4TIpd Z3LdNIYlybynLq21yU7fKxVrMv Y5YNjzM5QzepN4WKRtsQMkZAse TSX1U50fa4V5RLYfTHCbDYS2 uFQ0bM5gzWpnibsfbXZjuCezwx JpfScjJMqmQHndM688TXYzoZpb Xnk8AJizUMIxWT82YY53pLFm e1Y9dOE0U8DhEZMqwlgbycsviV O4OIOxKHNxrC57aHRqBVmuEy3x d8R6s114DXCbOZCycP76Bf1i bTavAXDcxKSRwG9ivumpw1lamn hmSaIkNWPbKBm9UTd1HITcmSmc EuEeXJT8HuL0PXP2dYBqxS3j eSgtwpidiG4oOfd+TUFMRTwvdG Q+HHHjOEN7oCrmQYoeOBCedP7w PFViU0l6CyAbInV4TYawR7Uu GHVkgutqFe34tC5pKmZgOkO2IA bhU6ZbrxA4UDNjfCUrSUyaVOK9 A79zn2O4ZYEqEFZfFRC2rQC8 cX5waFohpdljaVVdhNtczvIvnU nuHStiLCcpH797XULesWwoEyQh AJHsEM4szScwiJN+KD63lk48 K9UkAsdjRvs8HQNkNUB6jBW2pT 0mRNGmJKyma1V4xNR0X7PzphTe cw2hp7urRRSbCMeiJ58naSYw l6M1WINniZP3JBJdnSdhRuEueI 93Oyc+NUKqdAmhx0NkRwoav7gu b1zgyYa3NyKdCRVreyDzbZeu MHJ3w4GaJj74K11qPOlqIQPzVM OcYHJwZAIdfYcnke3qxU9cBz6+ RMHvhPZ7xXC7aC7zIcWrIoS2 TLhlR868QzJufGXgJdrzl2exp8 slqHh7GlKgWPZsrsNvfNawBHB5 a2TfAm74C0JeeWorx7WxExn1 ks49jCZvr3X8aIR2I1BfAZJzje hivBMnlKpvAY2qQNDkixttSTYx aJ2jJRSwD2r0SgJoBvS2CAuo X8MkecV2NROjxTTzSNPrqMRClW 4suwibn8uvkmayBoAjQXDfHNd2 GXg1IVVxlKwpFoZjFPP8KiU6 XTM6jDUweT9taJfebrrcnF9kGf c+AOe8j0eolVPvMV7qkME8QT13 QU70qIMuj0I2fWF0K9YuEZCx pduyxjsisJH8YHLuPRXqcO57Zj 4miCumQi0nYSRvNBC9AWPfqJVi Y1JrmV1iEgVhKNZiHVVwN4Dk xNBiVBfkJ001VSseWqI5YREwaf YuI4SwKWMlgJklKxW8j0Z2Dg2B HY34VG19CT59mFOkh4T3pIG1 O6LhDCDbcolbjggjkHW3ZHVgPP WqyV01Hb5yfLqhOt2gKTSbKDU2 FJCetSYbQ2XmgU7bMpXgHHIi OCEiK2XtgFRtAQugH669YTthKd V6ZRNyqyMoH2LtSSJzuDawKgG2 y9Y8Ot4HHe26DQ46XW57oVRn y0Y7rRJ9K7TyQKLqntxahsfhhQ V0JLJfXNLydJ14Cu5rnYehAo8b BZGwTNI7OSMxaJGjC3BjeD5u KbQpBRVuTBRzP3HkrXHzDSyjF6 47OFigDlC0HIPzsjLiX1UiUTBj sBkyBjW7t6W4Qs3HBPqwzge0 P2JiGuavfFU+GU91LAOeUE69sZ NmfCEat1rwlEa6MxPhVHDcTDV1 sQlvVDxlr6JmVAMiV67hnABm c2U (more content not included)... [facility] Coding Summaryon 10-19-2022 Coding Summary HTMLBase 64 ElcdvffhFQz8fCf+PGhlYWQ+PE 3IJENsR57ewSBxpM4OX1nVOM5H GHQYDRXJYQ8FAP7evWV4OUgzO5 VybiAv ScsqoDLkOO22DMk4YJL8oBidTQ nkjE3zrWMuY1x3RpMsFY53cF31 FOuiIBJuNrJ9GiDdfogxaGGw Q5ncRpVmaJSrFqo+PHRhYmxlIH ibHVIpUXcsEKDrNyAujHddPF7u Op9eJIVuYVWozZbekYFnUmLz a1aoJJDnZYssYN5trGhzQ5EdrB S1TIIwx5p6Ae30xAK+PHRkIHN0 qBlfYApdo212KnVch2guCIM9 zJBfOZsgGTW9E72mp1G1DYJwFP SsGRC0nPR5lP2laRzaxgadJ2Vj sTQgPeP1BPZ9aHOllM6ixEsi wcyhcH3jUtp+N17SDS9RXAPSJV 2LIcz8P5DyIzpdrSF+JQ74PNKz PZ15kRWmpQZbj0bzqZy1TiFv JCUhMZB4lHyrPAnkq1QqERSgC9 4uqFCnc8V1SJMfgAusrEBjPjMq kLG9fJ4wJCwlvkgnl0urcatk Aldpj4obxj13kV83L77jXSdyXM HsFLK9ZRThGOYojFaste1txR0l Ii8+WBusu2dwf5fmuCr5BgFw VTBwapLboLpxETB1d5GcGy93A1 FzjGeit6HuMwt6pp76eLGqx3B3 tRO2EJxqPJLpiI0sVLqoUqH1 JVZcWmKymX33qVYaVDlyHa7zhF hghGpnMB3vYFYndakeARVimM3q MTBfoMJidTntRC0ePKSzqekv x915KmEaULP5IHFvdXGnN2IifG 9lPxEtNBBvIYHuU8PuxUElUXkw A003VLhyLcK1JYJxhgDjE9Yg YPJupOmtApU6j0L8Iy7Qb6Nbby azPMD6TJilYLIsRwWpArGwMtD6 T7LoEvw3KQQxwMltNZ8vJ7So LBTedfxkeabtsQZ4AYFdESRnqF 94iYZqMNcuXs8zw7I3w943ZNHw FQBkbV45Ep6dvVzyYWOayABR nW7ctscsj1qvmfpdEbZfZOEiIA x8OVp8IAVpmCafOwOrXIY2ItD0 EUJ0gPRnyZ0iaXjqooikxK3e Oyc+E77imL7nMYU2IAQ2ukplZG EkvdXiCC82CJ77R4TbIiuowJYc bGU+DWYkxtQxkKqmRO9yIgKs m5pov1BzVOdrY2FrKSGbTMzeKy s9PVTqBBA6gNL4fI8iIQFgCRkc e8J3eNB4K1AkvzNdyt4uv3ju TZUhLStoK63tuFQtz3B8YOLlwZ J4YAUjeItfMhJwxZ25Ihb+PGNv mQpya7GnMkrgl6oin8iwmSm7 FjWbBQQuitNxxQheTUL0e1TeUc 70M67ySGysQVJpOAQyCIFwWHBa fNlnmu0hdI3vFw9+PGNvbCB3 rST7iW3jHVVjVwM6PZxyA791Ch AulRDhUglrt7vhi0dhkVw9EdMm QPOyavZqgJjuFTT7f7HnBe04 A58yWYshXDBaMCGeUFGrXXZjzK axmr2hxV5lKk2+ZK7rw1jmuf02 nB36pWD+KQSaOLI1vMebSYdd ARSwoX4cUMkoRnT3BUBdOfNusD 25nZDjDQebYy0zfCaiiFlbKJ1x ZJGfjrsyx458UrZxt8ffKOLs eWQhUJhfZAS5D02yc9E5MHOaRF DxRRC7lUX1iT8uhRzxmjijsOHb iSfrqlDkvXieSMugMKtvC422 IHRvcDsnPlBhdGllbnQgTmFtZT r0M5JcGyx3TYYrzKafYJ9psWFa EOtsOn0uiSwwjUiqNH9mXIMs yffxl114XnUqi3uwTSOaeMFnIT pjJIY7J70hn9G1PLNdRCBbHRU6 oZT1bQ2owFkufcwceKLfeQkr epNqsSthWRlrCGakW701FFShmV oeYpNhnwXiKGWfuYF7TT69HB42 eRKrb2N3iHM1A8CyYHGluwzp zslmbMC4DNBtTABieQ32Uq4igN nrJi0lZOEbFWV9SPCjxJOnK1Db sY5mYmLtTKBqZDYkP4WslDCl HFpvH254GPeiMlW0HMZoywJfD7 QsMDExsFwgAeZ2t2B6Hc3FI5U2 NE36WZ24nHNxz0E4gSP8K9Ps LSOkhxtfmeakrHD8XGIfDKGjwC 81Uk4udKbaGt9yGPBmXIM9MPRq rUKiQ1BftI2qAdYdCCLoGKXp K9WizPDfMMsqA069IXglQuQ6QL LdddDvA9DsGMOcrVxbGkQ3i1Z2 Ds5PQZr5UR61UV74zHKtj6J7 tKW7F1JyJQVfvfsvrfrbuIU8ZK OvCORkjN69Gt1csWyvIj3bKFOt RLD6XYPxiSFuN7NcyF2rRvCn ISJlCPBcP1CsoHBjVJpvC539KA otMiG9HFSbhcAfT5KbWJKglCzl OaA9i9B3Su1KPVPvSJ50BXH9 fBK0VA20OX40H6FqYyezcODvmZ U+PHRhYmxlIHdpZHRoPScxMDAl HfYrtPxxWL7oYl9yOOKqDNEl hJvrrIDnOdVha5ckISXrGKicAE 8pjVggM7ZxjZK9NUGho2j0Ed88 D42gW7QxjYW+NNPbfDZ1hGT0 jE1oKdMxLwW8BGsbU108FxXgcU RnYjkya1nyg3lceRn6OhC2ITAe ebUlbLdpCSM5a5UiJv48U44c IHdpZHRoPSIxNSUiIHZhbGlnbj 8cvD0jAc6+ONDyfPX1oCW5sA7g JiMsBlO3IPsxK867QrEezLQk Emeis1orw2nejBg7BpQhTWWsgs OlvRuvDYW6y1GcNh00L5UpmCce i7QoQdo8ph34pYOuo9D4bDM0 Q7NwHPBadgfukWDisMczCK5aPY OgrfbaXDJdvP5nNUSgQ7g5EcQj KsZ5KMzuX0EoylU4YCIraMXf EVykJJP9U25my2V5TSEdLFBdCI V9kOM4uZ1soGctscvkfPRddEgf ciFlsRqnNFogUNmwB709GRAp eHbwMFGayP7xHHAfbXBsqIylUF 2pMCJiinnpTeXNM56WSibuG6rP DjiUKuFCKD44NA87lXKqr6B4 vFD7Y6OiRZDuvaeauzhjrSB0LP PpMXWuoZ65hQWaIAcmKe7tq9H6 w961KBGuAKAhrY84Mz1iyCky GYIigLXPmX8scesxx2tisfhqJj EpKKWjNVu3VIf2EDYvmDpbSsNz HJB0WoI7UJU9wAGgmQ8pqSgu mwbfdK7wEkz+WOLmNWVvQDj8AR wvdGQ+NGEdHUY2xTlnLQfnGCQa lF5jCVDdQ1b0QeGnRxG4SDsg G5KyQDToqeekNo00eV1dSbTfFn L6DFgpE8OjvfU6LOZieYJoNUci HVW7S98uo9Z7MIBkHQSiDNG1 nYO3wK9fkYjxyftfcPTyyLmith FmpKyqLRgwQKjaM983EWErjCcr Iwp0FDdcXKHeTU17TP74fNPb f0B6sIQ0C7GrZKXfwgyrstvqgO J7CSVjUEJlzO11mHNdJBhgLl1b b2P7k963PVLqFIXyjO59Fj8o zCdsGUWjkIINpN8haheue5aima rrSjQwVJBfEXw1PJy1LWVebPyf XzBdDVL0QjA9XSS4mTBruA4s bLtcgaqdjQ5iGka+TUFMRTwvdG Q+BMGmEVP7tKmqMOvbOOAyzR6w QILaJ3q4WnLmSvN9HAmqN0Zp AJWouidrNb27aU8bNeTbIbQ9IF imL5AooeQ8WKEayESbZBqpTOE0 P21rr1A5KTYyJXUmEUT9rAK0 rJ7ylVarutzfwILslAgadmTlbT fsMYtzRTbsH011LPYbnTumIhYy JVRhSA8arVdasYB+UU62fu18 M7FnWrtwYur7DRMcKSB1fZI7lM 3vJCNjRDfiq9W5jUN0P4DaxvPr hm1us1beQOBaGMnqK54pwEMk a0Q8YECuqOP8QDXrsJvfRkVfqM 93Oyc+DRGmtUbmi0GdNjcku5ge z2nrgPp1PlPyNPKqjeFxsBqx ORK9a2GhXb47F48rZGnyWYUpZV TcNEEnDELqgJpebi9zfN6lEw9+ VDMtnBM4mKF4iV7xNaRpRpS2 MDvbD400BbHtgMSnMcizf0hjk7 ublZl5TaRoBHHlqlOiaShpQWJ3 o8BwCv58L7MqqDxcg1TaHwc8 ws99xCUur7A3yBV1X6GrSXWnjt qgoKXcpBwxOE9dDQZwhkyhKHXa tV5dZDZaU7d4HfHwLbU9CUag V4BggiI3HHUtrSKjRMUzvPMGeD 8zvaxtl8kdijkoPvFdVAOsAMr7 ANi8SMAcnRbmGmLqLHF0AvG2 YGK3iCPghI2phFbuqumbvW1wTl c+ZUo6n6jtzAOfJN1oaON0NS32 UA36fHSdi9L0tFC4B2MfFDQw bsbnhdbyvXB8BKWgASBkiH22Ec 6spNauEe7aHTFgGHO5QBAmlOSg R2XbjQ5tYfUmLGKdIAMoY8Ik sMYtICdtV380RLqkLsD2ZMRqhn DpJ7GeFBReqCstYdJ4k9M3Qc0K KZ02BE25KJ35fMJxu5B3jSK7 O1PwIRYmqjwhunfkgEO4EFSaVH PxlG18Ur3jwEhwZt2cZAVdXTE7 TTZeqNXlR0QlzL7yOuLtOYXv OBIvX7WmcIPtOYtiG560FHdrHx Y7VXZkmqXoU9CoZJMrsTlfXpL7 m1Y5Xc5NNg60EH86LP56sCZb i5V2pDY3G9OqTYYboejidcwuyV O1QPYbLKVuvO73Cg4doDcxUa1u XMPrUXG1XNDahZBpH0OnhE3v GsEvEHGnBGMyF0KptSVdGWeoH3 41QPmbCyE0VOIvzyXjZ7YsMHQe sTxkUuC1o4O1Nr7BGYbnjgj2 X0XaPabajPW+FY11KLRrXD08bT XdoQOtl9ofsFu0BwNdBFKzSAB2 pJhlTJghu6PqLFSoO68ztLXj c2U (more content not included)... [facility] Coding Summary HTMLBase 64 MiprmcizCNp6pCy+PGhlYWQ+PE 1LGFJvE29ygKXyhX9BA8rFTQ9D QVLOKGLQRW1KEB8lrOR2IPraO7 VybiAv ShlapSBrJK73NOi1XVH6fVbpUS gtjZ1shBDpR9q5FmJwJA85fD42 IXteLHAtOdW6IhTzpmqcrGRh Y6qqHsFiuULlCnu+PHRhYmxlIH yqXFUbKDdgZOYjPaUhnNmgZC7r Vm9dUBAuPVYggUakdUQwRoGd k6wpTOPdBKraBZ2riGgmW5XbqA B3QRPwc2m0Ld23oIK+PHRkIHN0 pFzxILlbb534GvCkq8ywGUQ3 gQVvHJreHLX4U18rk3U9RXSdRR WtLNR1jDY2fI0kuXqtnidoI6Ct nFUsYaA8SCM9sDMqqX9fyMxy fwtbpF9lEsc+K58WWZ2URIHNUV 4KDdi7B1GgAwsibFJ+BO83BPJc JH93kJIqoVKoz3lmgVu7AePd RBXpTKZ4hBhzCLote1YvWHMrM0 5vaTCnm5N9QSKdwJstnBZvSmIn dAY9wB8kZOrtnrljf3famgdd Lxggb1yjqe12dJ10P76tRBknEU RhXFG9ESVjKUKmfOpncc5bfP3g Ii8+LLfds3mtk9bheRr5QdSj TZHtrpEfjXitOHH1c1ZvVv05U0 YfyHvim5TaNpa0mz34qCUol7M2 rVW9ITyvXBPbjL2lLMuvIcP9 OLIiOxPthX05vHHzFGccAw7jyN nihFfwKH8cVCDaslbqZXSnnG9z CUXpxWBtzQtfOX4yFENjjlxp n899MdXdUHI8YEAunDSpR2MgsV 7bAnKiGBYdWAXwN6XcwXVlOZpb S799CTdhOaC4CPDcjfUrW2Bo IPGncPveTtU9e8K4Lx0Ds5Xcle ziGEL7CZrdUTLiArNhRrFrGrQ5 V9JhDyb7RTJpwEvkOR4bO5Hx WWEmlligrrocrAS5YEAkXTVhcY 97pXGmXDkqGe9mh6H4w027MSXg ZWBpoL68Wr7piSwfNGExgZEU dA0osxdcx6hmtyvsOcGtYOEtIX d0TEo2RXWjeZjlOjIsKBB7SxB2 ROJ5fPMdsZ7vjJptcywcsX8a Oyc+J30mkS7uZWN3BLT6lcxdXN PsvvZiCC91BM27K6WcWtehqEJm bGU+SIEycqFvaAxeBN1dOjSt a8deb9VjEYirM9KnKRRmLBfdLb a2VXIlBOF0kVX2rD0eFEOuDZdf x9T2vBB0A6DytwIgxa8yn4jm WEQlECvhF62ujUWwq6C2SBHtwW W2UOBooKdsScRcmC04Myx+PGNv rQcrq4KdTvkmm6cvm8yyqYw1 ImUnJRZaljTnqKjnWRW0s6DnSm 71A76rUJtxVCFkPYUvOHSrBLTh nJknsv3mlZ8wRn6+PGNvbCB3 yME2lG8wWTZfLgV0QOqlO017Li UunFItQamjp5uyp1vacIb0TtJz EHEdfxLltJguLVU2c4GsFp43 X28tFCpyTOLfQPRyEXYhTROgeM maua7nzR0cVw4+OH2tw6kfpc49 gD45fPO+IDFsFAV3zMouBVxr FGKhfW8xRSxaZmD4PLCdSfNfsF 05nTPcTQduVu4qsIwvuAoiYY3g WSBqdjjwj450ZdFpn8kxAMKb xFKcEOxlZAN8V70zm3K5LULbKH XwJWS4eDU6jN6tkIuzisyfzPFd eVrikyBjpJwzVIziYCiqB443 IHRvcDsnPlBhdGllbnQgTmFtZT f2O9VsLzp2OCQizLopQL9lzIAc JMleZs8xbOsuiZwzBN9pBBCd lhsdb577HjYhj5cxVMDqyLYwSY doCWG6F84ud6Y1TBCaPTXuFEW8 wFT6oM2wcFiqonfczVMlpXmy plSvnXdzLTxzUPbgC885NGDjlB fcVfMwebGfWEZrxNS9PU79GR59 uNEln1W9uWU7O8FcVMDbudjw zwpbkDO4HAWmUDWssH81Sz3okN rbLa7hEBKtZNX4DFTdhCTcC7Vs nQ4pFjXtLXYiGXAmK5PxhICr XMhjW774VGjpJuT8TPAkplScH9 WiQNHaqPygWlX5u0N2Vr9ZG2Q8 BO88GT12oWZjo0N7cZJ9O1Jy SEYxbkhpdzzseJE7WYPeRIFmfC 17Wu5zeCzdPn0tTUXmAIG9SYLh mDWlX1TcmA3zKtPcEZKuDSCl E5KsbCLxDZliJ917RKkiThD9IM AwbuAdI5ZsORBfiDaeEzV8p4I6 Gp6YPYm8NZ90XW10fWJtn9U5 fWD7J5DrIXTglmkbdneqfCA7OU GhBYIpzJ35Qi4qbSzcWo9qONAo DEW2GEVavGTrE3SkmU3aNaCp UPSiTGCpR3KfvZLzLMkqO750RJ thTsY0AYCgsyDpT7OiVEAfxKxy DfK2e2Z4Vr9YLUXpPT95ADU5 dUW9JO04EF97R2JfKadwsJPleP U+PHRhYmxlIHdpZHRoPScxMDAl ZeOgbTaqDA8vAp9rCQRuLNCx sLwvmGBoWfExu7fwPPSwJPihLU 6rvHazU9MwaLN5GSDbr1l0Pd37 Z16tT4XjqGP+BXSytSQ3vHB1 yZ8vArFzHcA8GClfV739ZoAeaV TaNlgwr3jbo4ehaHy7NiP0NTNb egCibObfQBN1l6IcUv69D36j IHdpZHRoPSIxNSUiIHZhbGlnbj 9ofV0eNx7+YPGquYB2aWK5qP1r JzUhApZ1ZMqjX983EdMscYHs Zradz7rxz3psjEi0GbMeOLCgzj MtuQoyQTH4o5LlLi43P7FnfOnu k7SaLpw4hm85aEUou3Z5bKO8 V2LmVJWkgfmzrPPdaKkgSY5oJC YtmhnoZPLqeN8yJNVvC7r8XuGe OhR3CZxaB8EjnvH2ULXhlLJf LZboVSQ5R23fd3N6MWKfRCAcMM W4vPS8gJ8saBawvwlgvFPcrPhw osOtfUzeNJfvFOjpI586LEEi wEleJYQzsZ6cBBXgyXBtrFewQT 3hAZNuoisnNdPDL89HMjaaT5lT VzyJEzSPDF05TL64xTDeg9Q9 wYK1J4FlSYOhpizwficrlJH9CJ FbDUJykT33gIOgJNwaPt7gq5W5 k206DPHiXJXxwY65Ns2euEpq TWHqxSFBvU9amuwzp8nfnchnRq VxCRJcGVp6XTn0LCNqpHubPlFy EQE1TqG2MIP6wJKhtU6bdShx smtcwV8dPct+HKRyDXDgZJj4JQ wvdGQ+SIYeZJY7oNyvIVnqTJXk oY7gJZBrI5v2KuNcBpB4OMbm X9RbVMHftjaqVf58uP0wOuXgZj S6KUtkE4QumlB2MHYfhNUsMBsn VAO2I39gt0U6YPKhCFBaQXL2 oSA5nA6soBriypyghMEooXmfiy MhhXuqROicPWxrY215VVJysOyv Unn3YPrxFXTaPM74KG35wHFq f5V7yGK7M6JcWAUcfgspulialX I6KDPkYPEebI48aOGeUBmjIb7h x1L6c986LNFfIZIlgS49An3w aOlwLMRlkFCQsM6wsaixt4yrtb fbPwHfNRJrTFe6YBa6GRIpdZef OrWpBGT9XhG8SPK2nXBfaD4o rUdhmzvwiS2tMng+TUFMRTwvdG Q+BXRjBDS9fChlCWsqCFHtbA7r OMUtA1m6AkXqJmF0TUswP7Ok CAQctsorVt06nE0zBmDbNmA7PH qsS1ExxyW7PHLbgCLrPPtdLNJ7 Y93if8S8LNOnNDHnBQN3xPF4 eQ0lhUwqsdizdVPsgYjnzeZduY lkKSevEIyeC776VIEfzXfhNyEd A6AgvdwmZdYAzKHaSFYoNX56 MM83PC59Q5FyLjxdgYGuiKB+PH RhYmxlIHdpZHRoPScxMDAlJyBz pEyeVD9yRn8kLFTjUCBhbLzg iHVjUtJjk8khDGAvKJktYD3jkB gzW5OxsUH0NYGho5x2Uw22A27o X8AqjAM+UAPagZM2hKV7xU1r DsNwRgM9BFtgZ473TzCqwBOjLl wwy6exp2mofSi2VkFuPRXanfVa mVyiZCD3m7ExUw91T78vPYmz VHNwFUThKKVmNLOdsGgqxe7hhF 9wIi8+ERNxdGI9rLV6yA5pIsWm SxE2DVouX526XkCxjAOrBgrz P88lU2AltVU+YNChZzq3SXKiuN qtCN5gyUVxGGglTx0jIYV3VrFq BxJkJJyiL1XyOWDdellvosae tKG4QIMmSRPhrH26Ws3vhLihPx 1rFPUdAHT6EYJatYWbK4YeaG0k WlVsJAZrBFUfC9MdpCTkZYpt V854PLdpCfI0SDKrwiSjD0PhXN FkpRkzZyY1f3D9Ua7LiSybnUOr JH5gQsRdTEt1B9EeXty1QTBc gLrpPC6thZTrOHnqYe7scYfluR ntMR6bKOZegyvca619IiDpp8lm BBFeaAOxAByyJUE8L06gd1Y2 QSKlOGHvQIH8iEG9gF4eyUkygf ogbGVmdDsgdmVydGljYWwtYWxp C275HNSwzIklLzMPDzn3F1Ht Hxj3JQSqhAcqZF9trWJnDFrkUe 9piFpbiKrlNH8dAQOtjcqun196 EwFop6tlRDDsuCLnJXfgPOW0 J75ip1Z6AYRkOZQqYWN3sVO6zC 1hbGlnbjogbGVmdDsgdmVydGlj FBmiYUnwJ342ZRYrqPhgQn0H Fra5W2HhSmf5KXDqqBwaEG8iiR EdVXtzHi5elXsyuOzqOJ5fPZIx wjaez055NlGez8yiOZUtyMEk BFrfCTY0V90gi6S7YNJxTONxJE M4lZZ8uL2jyWdtpegiuUKrzGzw yjSvuJaiZYzgMQpsP906MOGj cDsnPlBheWVyOjwvdGQ+PC90cj 87W4AlEtilZiz7TVQeCHX8hXK2 kY0hSBFdFStak4X7uTN8D1Yv cmR (more content not included)... [facility] Coding Summary HTMLBase 64 AphfvatbFJl3hJs+PGhlYWQ+PE 5YZMMdK94sqIJwmI3UI8lJIR1E WQRWVOYXVC3OMW4fxKQ2TAbhU1 VybiAv WgytpERmLB24RVc1YCJ8xAhcXL bfiC4mxUFtQ8c0EzGsNN44uS15 RPrrGFYmOxU1SyWmazvgbPXx D5qfVeLenKAlLmw+PHRhYmxlIH cfJEEcLLzoNJFoSzXgcLasBW1h Uy5wLOFkKSCnuZhlfKKjHqVv u2wtYFVpWZjiAP1eqHexI9LycR D4XMYqk9n7Ki44wFM+PHRkIHN0 zOxxRCncb688DfJqk1zfMTH4 nTUeZJunJIA1M55st4X1MWNhGJ UkSHU1fAP1tZ7dcAucxrsxZ0Ho cVLhUdM0IYW5hDFucG5zqLln jjnrtY7fAov+I18XDV8JZPKXOD 7EUhi7X4YrTncaiDT+SB13NMAx GK46vYSrhKLlu4orfHg0BxNm YZPoEBD0nRrmRThmd6FhSMFpL3 1zzWAuj8K7ZZMgxIbfdXCbHqDr mLF9vU2yGShueluxk3xstvxq Tfkcq6fnsh80kD26I35vBJqfWC ShTRD0PGIoWFErmNiwyx1qsA1a Ii8+XOoxd3ofg8nlfNd3MhOx NUUgczQqpIrxLLZ3f6ZpYp72A4 PsoKmys7KjGbc1wr00wRCll2O9 sRZ1NGbhDOTbdZ6eONztWlQ6 RKUsJiDaiB05bAPpPEnfVh6wiH bgrVtgPR0rYFUjzufgICEovH7h XATvyNOslTbyPM5yOKCbudfa i723YvVwLFX0GKThoOGxU0KezG 3mCtUvEMTeDCPhN9DvrCCmRCqt Z871ORxfSaK4PTGtqzWgJ1Jn GEQylCmhItD7w7S3Ub8Kd7Lxtk tbQHH8GItuBFEqIaHqKkBiZiI6 H7GsUso9EBFmfZmaJS5nH5Ii EVFxlbxumahmcXS8UZCdVXIfeF 60kMWiRFlqUs8do7C7u511UWKj EVEjyT66Qw3oyRoqJXLjaVYD bY6prkufj4yjqxkaGbIoDDPgDB t1DBd6NNIftGjdPvVvUBF9XaU7 VCX6cWBlrN5lePvkwasnjU1g Oyc+U98nvY8bGNG5QKR7scybJW WbloYeMI19LX74B1QaTfmhhHDw bGU+YLQsvoGdnDfvEQ5hKiQt b8nek8FlFHfhX3RpQRMoBMwyEx l3ESXqGEC1vMV4pT6eHCCjQDju o5H9oCU7K7WeahMtrb0ts0lh HVNrCEnrE62lwYHjg6R8CBUtiH A0EFBcrInnEbFvbF59Lam+PGNv dNyta1GsAkdmm1ese7bkoNy8 YsOfOYXstaUoyMkpMUJ1t7FvSs 00S60gRYvyQNBcQVBeMVAjMEUl kXsykf0bqQ0oFm4+PGNvbCB3 oDO3zM5tIXLkRxD5LXgyE962Lg RrkGWjWrzsx3wyh2cwmNl5KkWu HSMhqnVrbLpgAAP3o7KnTs93 N51xWFryYVVkVUIrSAUtXVXbdJ hyhq3prD6dQn4+FB1oq3gkje23 gB19zOY+KPXfSHS0bHlrGWns PSMzzZ3yHPrrObJ7BFHiWzPlwS 80hXXdFDtrNc3xqTtgdWywVH1m GKVnqtdsi696ZuPwb3sjHEDd sETwMIqsNRP4K99oz6C2TOUvZZ WjWOR8ySG1eH4pkZdlhzdjkJJi aBzzwaMkiNjnFCtgMRgsR028 IHRvcDsnPlBhdGllbnQgTmFtZT t0P6LwKrh2KBJfjOsmGC3fdZWo IXslWk6zoDgmrQkhYT0sNYXu ffhnq495KjUry4ayCYSazZVlSG xoJTQ1U86ah2Y2ANHlGGIvTJO4 aQP7eT5rcIkstdmioJUrbEea sgWazMgcYYqeBFytL568AFDzjA zmJcZnfwHcEZGueYQ2AM76FQ16 gJDul2K1kGB2R8IrWCTnupxz rwynvLA0LRSqGUNveC13Ei6msB qwOq1fBDRwPFT3PAMtyBVkO8Nl aS5iBiDcUQVaPDIcC6GsoNXa WOwoD811UJwyLwU2CIFkexMbX3 HqQUSshPyaOiZ5y3U2Ey8QM8A9 IK41BB34yRUvr6H2vBQ2Y1Td XCLohikilvlfoEF6AEQfWCWcuF 47Zd3nrOgmWw4oOXPtSHT6ZXKb tGAbY9WduA1lSiYaSOXxBWAu R9PrfQVxSSxoL961ZQraRbH6NM PbwhMnJ5RmFKGdqHivTpS2k5V2 Sx7VDUd6MK60ZP06uXGtj9Q9 lZN7J2MpQZXyscqiuxfpiWM5AP BaCDLpzR75Of8vqDskMl3eRVSz HZW6QTAmyEVuT5WglV5sLlGl SRQwPOIhT5RuhZJpJIcwG426QH xnIaN2AMEalaPxE2CnLLApsBoj WtV7g1A2Cd0XNNOwSS55KBB7 cCL5QR70PU17P3LtAsfclYPhlZ U+PHRhYmxlIHdpZHRoPScxMDAl EtJgkOfvSZ5rLy7rGITkNBWn kEoruABuPpVgo1zdCNYmCOynIT 6ooFhaL8FanQJ6KEWte2a4Yj85 J76mJ8XvxPC+DZBwpOY5uRL2 dG9yHmJtHmV4YGlgY112LxGlaN MoVyelb5ucm4pchXu8KpD4EXQa smSjkFumVJG5y8OaVr22Q31e IHdpZHRoPSIxNSUiIHZhbGlnbj 1ofZ2tOq7+JOOazXB6nQE2pC7m PuOiKeV8HLptU660RtTseTVe Chzis3elo6aseRf9XcHdQXZwwa IiqTfyRCD3o9OnVt00V4AacSzt c9IiWta9wq19sJHzp2Y5gZU2 G1KkRRPoaocwnYHwvUdzTJ9nHK NahazwFLCbnD1hPZNfQ1w6QzHq OiK9OMqdL4FcceW3BHJwkCJq EOfvXRQ8O08dx3N5ECKgODGqNF S4nOY8uA1esAfjpacylIDfwBhi jqIwrVpuVUrpJPokQ075ZHXn aQsnJLVgfZ2vPUNkbZIayWzgPG 3nHHFzshbaSpOWR26WHuwuC0bE UivUWxRGXV00IU59rKGdk0O1 zVY1H8LmRXDzpgcjiiqbmAA2FX KfIHKriB35tGCrEOcgUe0oj4W8 y444LDCaDAJdvB33Yp0qvLlg XZFhbEQDdW7uvymvq8jdafarRg HfMMGkNIa1XHb6PXIhvKzmYxKq WEH0VxU7BXN4tSVgtN0rvCta zexfyI3qPun+SYYlILJvXKm8PG wvdGQ+MXXmZQE5eWqqCAmtIBBo uY0jHOZhJ0y9FgMdZbR7GUxz B6RvVOFluzxqGj19bN6vWiYsSw S5NXivM9CbkpU1MAQfwILbXExd ZQY7C70nx1V2GBBbXWJfJUI7 wAY9uA8rcZxvoibpvTSdnZttfe FnnPrpVGycVXekX119ZJXuqPlv Tjy8FYruXIXhEA89WV63vZVj q2O0zHE0H8OzINXbbjcubrfcyQ F8HJZfFLHkcB38uIYhOEizCd9t i5Z9i697XZXxVPLstB21Qg3p fDveYAYklACJaK8eymywa6jaxr vlFaFbPTBdEDn0NZh6HDFecXat OqKnRBW3JkP5AKK9wHLreG6e mDqvlphepU5lAkt+TUFMRTwvdG Q+IQKjAUW3sEvjXRkgYQSlsU6l TCNvN9r3YpJhRnK8RHkcQ4Ee YPXmdkfjMa30fN0dThZyMcE4WV xzH4BxbaS0XRUpzCWsKSllJCL6 S91hm9C6ZIPtUBYjQBI6sGO2 eP6yqNzqggxlpXCphZqsuvUvkB tgYDlhWMjdD257JVNrkMezAbWl I1VewmetBdABjCEaSHHoDG20 CK52BN32T7PpTgjzhSRraYN+PH RhYmxlIHdpZHRoPScxMDAlJyBz mYpuXX6xSp0oHMCgJBJlzOgk xAExVaFac9bjKNMiJKgvHQ1cfE vwD5GkzQC4SLYot3i0Nl29K41s C8LrpUM+UGMnmND6zTN5rN7a DkDoUlI0CEuuS925GeWovJSkBx aby8hux4xzoTk4OvUaVKIwzfSg oTomFJS4v8NaOv07A11hIXjw SMHhVJWbVAJlDQQaiFxwwe5rgL 9wIi8+APVldZK9vJF5dN6uOqGk CyP1YDckB300SbZxbHObTyba H25aB5NufZP+EDJhZfu0CICpkX isBD5ygZCkNQapNs4fZFS9LoAw DgApWSjhL9KkTWPogwhllipf wCZ8IVDhJOGurA31Qc5qjUznZg 0wZLRxFQQ5XKBmbHOnD5WxlB9q CvEgBFVpLQJyR2TloWBzYYhl A816BBbfLkH4UNRmmqDvA2VbFK KndFsnLnW8s0S7Ll3EsPuoqUHl BK1rGyVsWGg1F5VpTdx9SEOt yCqfWP3waMWdUNtcQu6zoQsynE qaHL0rAVKbpmdih161TwOrl7au AQXtsEOeYBbjEBW5K25sl0N0 XQReGQQeOTC2tTD1vJ9hmEdmhc ogbGVmdDsgdmVydGljYWwtYWxp I054HONldSvfOjXIGot7P7Zb Roc7ZJKlsJaqUI7wtPLnQQwfCo 3paZpbqObjFH2fNITkvuwoh814 MgFob9ezTWYcyQZbUQpeFHM1 T01bu6K8SSSdPWUjHGA0bAO9rQ 1hbGlnbjogbGVmdDsgdmVydGlj XCunWDwrZ735ITHczTqwFx1Z Nya2E5SzIew1DEUgmCfxPY7fsR CkQGfsDg4iiClggJmqQJ4gRZUe yrtyy665PsYxb5bqIXYfhWSx DYphXUS6M55zf8P7JADfYHWtHA S9cIX7lU6liCarbyffpZXsjFwl ugVrgVlmGDwuEAhkA210FLFl cDsnPlBheWVyOjwvdGQ+PC90cj 68E1HlFelhOps9NTUvWHZ3iXB8 uV0vDJSaCJgnl1V1wTU9J1Wt cmR (more content not included)... Normal [facility] Basic Metabolic Panelon 09-22 Anion gap [Moles/Vol] 15 mmol/L 9 - 17 mmol/L [facility] Calcium [Mass/Vol] 8.3 mg/dL Low 8.6 - 10. 4 mg/dL [facility] Chloride [Moles/Vol] 102 mmol/L 98 - 10 7 mmol/L [facility] CO2 [Moles/Vol] 23 mmol/L 20 - 31 mmol/L [facility] Creatinine [Mass/Vol] 1.17 mg/dL 0.70 - 1.20 mg/dL [facility] GFR/1.73 sq M.predicted MDRD (S/P/Bld) [Vol rate/Area] - PINF [facility] Comment on above: These results are not [...] [Mass/Vol] 91 mg/dL 70 - 99 mg/dL [facility] Interpretation and review of laboratory results Abnormal [facility] Potassium [Moles/Vol] 3.2 mmol/L Low 3.7 - 5.3 mmol/L [facility] Sodium [Moles/Vol] 140 mmol/L 135 - 144 mmol/L [facility] Urea nitrogen [Mass/Vol] 17 mg/dL 8 - 23 mg/dL [facility] Basic Metabolic Profon 10-18 Anion gap [Moles/Vol] 15 mmol/L Normal 9-17 [facility] Comment on above: Performed By: #### Mc Young, CBC, BMP #### [facility] [employer] [address] [place] [address]43 Clinical Safety Manager: Wenceslao Rose MD Calcium [Mass/Vol] 8.3 mg/dL Low 8.6-10.4 [facility] Comment on above: Performed By: #### Mc Young, CBC, BMP #### [facility] [address] [place] [address]20 Clinical Safety Manager: Wenceslao Rose MD Chloride [Moles/Vol] 102 mmol/L Normal 98-107 [facility] Comment on above: Performed By: #### Mc G, CBC, BMP #### [facility] [address] [place] [address] 26336 Clinical Safety Manager: Wenceslao Rose MD CO2 [Moles/Vol] 23 mmol/L Normal 20-31 [facility] Comment on above: Performed By: #### M G, CBC, BMP #### [facility] [address] [place] [address]3738 Clinical Safety Manager: Wenceslao Rose MD Creatinine [Mass/Vol] 1.17 mg/dL Normal 0.70-1.20 [facility] Comment on above: Performed By: #### Mc Young CBC, BMP #### [facility] [address] [place] [address] 04872 Clinical Safety Manager: Wenceslao Rose MD GFR/1.73 sq M.predicted among non-blacks MDRD (S/P/Bld) [Vol rate/Area] mL/min/{1.73_m2} Normal >60 [facility] Comment on above: Result Comment: These [...] affects renal tubular secretion. Performed By: #### Mc Young CBC, BMP #### [employer] [address] [place] [address] 09702 Clinical Safety Manager: Wenceslao Rose MD Glucose [Mass/Vol] 91 mg/dL Normal 70-99 [facility] Comment on above: Performed By: #### Mc Young CBC, BMP #### [facility] [address] [place] [address] 84493 Clinical Safety Manager: Wenceslao Rose MD Potassium [Moles/Vol] 3.2 mmol/L Low 3.7-5.3 [facility] Comment on above: Performed By: #### Mc Young, CBC, BMP #### [employer] [address] [place] [address] 32730 Clinical Safety Manager: Wenceslao Rose MD Sodium [Moles/Vol] 140 mmol/L Normal 135-144 [facility] Comment on above: Performed By: #### M Hannah, CBC, BMP #### [employer] [address] [place] [address] 61202 Clinical Safety Manager: Wenceslao Rose MD Urea nitrogen [Mass/Vol] 17 mg/dL Normal 8-23 [facility] Comment on above: Performed By: #### Mc G, CBC, BMP #### [facility] [employer] [address] [place] [address] 88048 Clinical Safety Manager: Wenceslao Rose MD CBCon 10-18-2022 Erythrocyte distribution width (RBC) [Ratio] 21.9 % High 11.8-14.4 [facility] Comment on above: Performed By: #### Mc Young, CBC, BMP #### [facility] [employer] [address] [place] [address] 91916 Clinical Safety Manager: Wenceslao Rose MD Hematocrit (Bld) [Volume fraction] 35.2 % Low 40.7-50.3 [facility] Comment on above: Performed By: #### Mc Young, CBC, BMP #### [facility] [employer] [address] [place] [address] 45690 Clinical Safety Manager: Wenceslao Rose MD Hemoglobin (Bld) [Mass/Vol] 10.2 g/dL Low 13.0-17.0 [facility] Comment on above: Performed By: #### Mc Young, CBC, BMP #### [facility] [employer] [address] [place] [address] 87065 Clinical Safety Manager: Wenceslao Rose MD MCH (RBC) [Entitic mass] 22.3 pg Low 25.2-33.5 [facility] Comment on above: Performed By: #### M Hannah, CBC, BMP #### [facility] [employer] [address] [place] [address] 65764 Clinical Safety Manager: Wenceslao Rose MD MCHC (RBC) [Mass/Vol] 29.0 g/dL Normal 28.4-34.8 [facility] Comment on above: Performed By: #### M G, CBC, BMP #### [facility] [employer] [address] [place] [address] 25400 Clinical Safety Manager: Wenceslao Rose MD MCV (RBC) [Entitic vol] 76.9 fL Low 82.6-102.9 [facility] Comment on above: Performed By: #### Mc Young, CBC, BMP #### [address] [address] Clinical Safety Manager: Wenceslao Rose MD NRBC Automated 0.0 per 100 WBC Normal 0.0 [facility] Comment on above: Performed By: #### Mc Young, CBC, BMP #### [address] [address] Clinical Safety Manager: Wenceslao Rose MD Platelet mean volume (Bld) [Entitic vol] 10.1 fL Normal 8.1-13.5 [facility] Comment on above: Performed By: #### Mc Young, CBC, BMP #### [address] [address] Clinical Safety Manager: Wenceslao Rose MD Platelets (Bld) [#/Vol] 198 10*3/uL Normal 138-453 [facility] Comment on above: Performed By: #### Mc Young, CBC, BMP #### [address] [address] Clinical Safety Manager: Wenceslao Rose MD RBC (Bld) [#/Vol] 4.58 10*6/uL Normal 4.21-5.77 [facility] Comment on above: Performed By: #### Mc Young, CBC, BMP #### [address] [address] Clinical Safety Manager: Wenceslao Rose MD WBC (Bld) [#/Vol] 6.2 10*3/uL Normal 3.5-11.3 [facility] Comment on above: Performed By: #### Mc G, CBC, BMP #### [address] [address] Clinical Safety Manager: Wenceslao Rose MD Hematocrit (Bld) [Volume fraction] 35.2 % Low 40.7 - 50.3 % [facility] Hemoglobin (Bld) [Mass/Vol] 10.2 g/dL Low 13.0 - 17.0 g/dL [facility] Interpretation and review of laboratory results Abnormal [facility] MCH (RBC) [Entitic mass] 22.3 pg Low 25.2 - 33.5 pg [facility] MCHC (RBC) [Mass/Vol] 29.0 g/dL 28.4 - 34.8 g/dL [facility] MCV (RBC) [Entitic vol] 76.9 fL Low 82.6 - 102.9 fL [facility] NRBC Automated 0.0 0.0 per 100 WBC [facility] Platelet distribution width (Bld) [Ratio] 21.9 % High 11.8 - 14.4 % [facility] Platelet mean volume (Bld) [Entitic vol] 10.1 fL 8.1 - 13.5 fL [facility] Platelets (Bld) [#/Vol] 198 10*3/uL [facility] RBC (Bld) [#/Vol] 4.58 10*6/uL 4.21 - 5.77 m/uL [facility] WBC (Bld) [#/Vol] 6.2 10*3/uL [facility] Magnesiumon 10-18-2022 Magnesium [Mass/Vol] 2.0 mg/dL Normal 1.6-2.6 [facility] Comment on above: Performed By: #### M G, CBC, BMP #### [facility] [address] [place], [place] [id number] Clinical Safety Manager: Wenceslao Rose MD Magnesium [Mass/Vol] 2.0 mg/dL 1.6 - 2 .6 mg/dL [facility] Basic Metabolic Panelon 09-22 Anion gap [Moles/Vol] 15 mmol/L 9 - 17 mmol/L [facility] Calcium [Mass/Vol] 8.8 mg/dL 8.6 - 10. 4 mg/dL [facility] Chloride [Moles/Vol] 102 mmol/L 98 - 10 7 mmol/L [facility] CO2 [Moles/Vol] 22 mmol/L 20 - 31 mmol/L [facility] Creatinine [Mass/Vol] 1.09 mg/dL 0.70 - 1.20 mg/dL [facility] GFR/1.73 sq M.predicted MDRD (S/P/Bld) [Vol rate/Area] - PINF [facility] Comment on above: These results are not [...] [Mass/Vol] 98 mg/dL 70 - 99 mg/dL [facility] Interpretation and review of laboratory results Abnormal [facility] Potassium [Moles/Vol] 3.6 mmol/L Low 3.7 - 5.3 mmol/L [facility] Sodium [Moles/Vol] 139 mmol/L 135 - 144 mmol/L [facility] Urea nitrogen [Mass/Vol] 19 mg/dL 8 - 23 mg/dL [facility] Basic Metabolic Profon 10-17 Anion gap [Moles/Vol] 15 mmol/L Normal 9-17 [facility] Comment on above: Performed By: #### B MP, CBC #### [facility] [place] [address] Clinical Safety Manager: Wenceslao Rose MD Calcium [Mass/Vol] 8.8 mg/dL Normal 8.6-10.4 [facility] Comment on above: Performed By: #### B MP, CBC #### [employer] [address] [place], [place] [id number] Clinical Safety Manager: Wenceslao Rose MD Chloride [Moles/Vol] 102 mmol/L Normal 98-107 [facility] Comment on above: Performed By: #### B MP, CBC #### [facility] [address] [place] [address] 94819 Clinical Safety Manager: Wenceslao Rose MD CO2 [Moles/Vol] 22 mmol/L Normal 20-31 [facility] Comment on above: Performed By: #### B MP, CBC #### [address] [address] Clinical Safety Manager: Wenceslao Rose MD Creatinine [Mass/Vol] 1.09 mg/dL Normal 0.70-1.20 [facility] Comment on above: Performed By: #### B SUZANNE, CBC #### [facility] [employer] [address] [place] [address] 37273 Clinical Safety Manager: Wenceslao Rose MD GFR/1.73 sq M.predicted among non-blacks MDRD (S/P/Bld) [Vol rate/Area] mL/min/{1.73_m2} Normal >60 [facility] Comment on above: Result Comment: These [...] Performed By: #### B MP, CBC #### [facility] [employer] [address] [place] [address] 22290 Clinical Safety Manager: Wenceslao Rose MD Glucose [Mass/Vol] 98 mg/dL Normal 70-99 [facility] Comment on above: Performed By: #### B MP, CBC #### [facility] [employer] [address] [place] [address] 08402 Clinical Safety Manager: Wenceslao Rose MD Potassium [Moles/Vol] 3.6 mmol/L Low 3.7-5.3 [facility] Comment on above: Performed By: #### B MP, CBC #### [facility] [employer] [address] [place] [address] 15351 Clinical Safety Manager: Wenceslao Rose MD Sodium [Moles/Vol] 139 mmol/L Normal 135-144 [facility] Comment on above: Performed By: #### B MP, CBC #### [facility] [employer] [address] [place] [address] Clinical Safety Manager: Wenceslao Rose MD Urea nitrogen [Mass/Vol] 19 mg/dL Normal 8-23 [facility] Comment on above: Performed By: #### B MP, CBC #### [facility] [employer] [address] [place] [address] 20719 Clinical Safety Manager: Wenceslao Rose MD CBCon 10-17-2022 Erythrocyte distribution width (RBC) [Ratio] 22.3 % High 11.8-14.4 [facility] Comment on above: Performed By: #### B MP, CBC #### [address] [address] Clinical Safety Manager: Wenceslao Rose MD Hematocrit (Bld) [Volume fraction] 36.9 % Low 40.7-50.3 [facility] Comment on above: Performed By: #### B MP, CBC #### [facility] [employer] [address] [place] [address] 11257 Clinical Safety Manager: Wenceslao Rose MD Hemoglobin (Bld) [Mass/Vol] 10.5 g/dL Low 13.0-17.0 [facility] Comment on above: Performed By: #### B MP, CBC #### [facility] [employer] [address] [place] [address]173 Clinical Safety Manager: Wenceslao Rose MD MCH (RBC) [Entitic mass] 22.2 pg Low 25.2-33.5 [facility] Comment on above: Performed By: #### B MP, CBC #### [facility] [employer] [address] [place] [address] 73673 Clinical Safety Manager: Wenceslao Rose MD MCHC (RBC) [Mass/Vol] 28.5 g/dL Normal 28.4-34.8 [facility] Comment on above: Performed By: #### B MP, CBC #### [address] [address] Clinical Safety Manager: Wenceslao Rose MD MCV (RBC) [Entitic vol] 78.0 fL Low 82.6-102.9 [facility] Comment on above: Performed By: #### B MP, CBC #### [address] [address] Clinical Safety Manager: Wenceslao Rose MD NRBC Automated 0.0 per 100 WBC Normal 0.0 [facility] Comment on above: Performed By: #### B MP, CBC #### [address] [address] Clinical Safety Manager: Wenceslao Rose MD Platelet mean volume (Bld) [Entitic vol] 10.3 fL Normal 8.1-13.5 [facility] Comment on above: Performed By: #### B MP, CBC #### [address] [address] Clinical Safety Manager: Wenceslao Rose MD Platelets (Bld) [#/Vol] 185 10*3/uL Normal 138-453 [facility] Comment on above: Performed By: #### B MP, CBC #### [address] [address] Clinical Safety Manager: Wenceslao Rsoe MD RBC (Bld) [#/Vol] 4.73 10*6/uL Normal 4.21-5.77 [facility] Comment on above: Performed By: #### B MP, CBC #### [address] [address] Clinical Safety Manager: Wenceslao Rose MD WBC (Bld) [#/Vol] 6.6 10*3/uL Normal 3.5-11.3 [facility] Comment on above: Performed By: #### B MP, CBC #### [facility] [address], [place] [address] Clinical Safety Manager: Wenceslao Rose MD Hematocrit (Bld) [Volume fraction] 36.9 % Low 40.7 - 50.3 % [facility] Hemoglobin (Bld) [Mass/Vol] 10.5 g/dL Low 13.0 - 17.0 g/dL [facility] Interpretation and review of laboratory results Abnormal [facility] MCH (RBC) [Entitic mass] 22.2 pg Low 25.2 - 33.5 pg [facility] MCHC (RBC) [Mass/Vol] 28.5 g/dL 28.4 - 34.8 g/dL [facility] MCV (RBC) [Entitic vol] 78.0 fL Low 82.6 - 102.9 fL [facility] NRBC Automated 0.0 0.0 per 100 WBC [facility] Platelet distribution width (Bld) [Ratio] 22.3 % High 11.8 - 14.4 % [facility] Platelet mean volume (Bld) [Entitic vol] 10.3 fL 8.1 - 13.5 fL [facility] Platelets (Bld) [#/Vol] 185 10*3/uL [facility] RBC (Bld) [#/Vol] 4.73 10*6/uL 4.21 - 5.77 m/uL [facility] WBC (Bld) [#/Vol] 6.6 10*3/uL [facility] Cult,Urineon 10-17-2022 Cult,Urine Specimen Description .CLEAN CATCH URINE Culture NO GROWTH Report Status FINAL 10/17/2022 Normal [facility] Comment on above: Performed By: #### U RC #### [facility] [address] [place] [address] Clinical Safety Manager: Wenceslao Rose MD Culture, Urineon 10-17-2022 Microorganism identified Cx Nom (Unsp spec) NO GROWTH [facility] Specimen Description .CLEAN CATCH URINE [facility] Basic Metab w/rfx MGon 10-16 Anion gap [Moles/Vol] 11 mmol/L Normal 9-17 [facility] Comment on above: Performed By: #### P RCAL, BMPX, CRP, PT #### [facility] [address] [place] [address] Clinical Safety Manager: Wenceslao Rose MD Calcium [Mass/Vol] 8.1 mg/dL Low 8.6-10.4 [facility] Comment on above: Performed By: #### P RCAL, BMPX, CRP, PT #### [facility] [employer] [address] [place] [address] Clinical Safety Manager: Wenceslao Rose MD Chloride [Moles/Vol] 104 mmol/L Normal 98-107 [facility] Comment on above: Performed By: #### P RCAL, BMPX, CRP, PT #### [facility] [address] [place] [address] Clinical Safety Manager: Wenceslao Rose MD CO2 [Moles/Vol] 23 mmol/L Normal 20-31 [facility] Comment on above: Performed By: #### P RCAL, BMPX, CRP, PT #### [facility] [address] [place] [address] Clinical Safety Manager: Wenceslao Rose MD Creatinine [Mass/Vol] 1.13 mg/dL Normal 0.70-1.20 [facility] Comment on above: Performed By: #### P RCAL, BMPX, CRP, PT #### [facility] [address] [place] [address] Clinical Safety Manager: Wenceslao Rose MD GFR/1.73 sq M.predicted among non-blacks MDRD (S/P/Bld) [Vol rate/Area] mL/min/{1.73_m2} Normal >60 [facility] Comment on above: Result Comment: These [...] #### P RCAL, BMPX, CRP, PT #### [address] [address] Clinical Safety Manager: Wenceslao Rose MD Glucose [Mass/Vol] 95 mg/dL Normal 70-99 [facility] Comment on above: Performed By: #### P RCAL, BMPX, CRP, PT #### [address] [address] Clinical Safety Manager: Wenceslao Rose MD Potassium [Moles/Vol] 3.6 mmol/L Low 3.7-5.3 [facility] Comment on above: Performed By: #### P RCAL, BMPX, CRP, PT #### [facility] [address] [place] [address] Clinical Safety Manager: Wenceslao Rose MD Sodium [Moles/Vol] 138 mmol/L Normal 135-144 [facility] Comment on above: Performed By: #### P RCAL, BMPX, CRP, PT #### [facility] [employer] [address] [place] [address] Clinical Safety Manager: Wenceslao Rose MD Urea nitrogen [Mass/Vol] 16 mg/dL Normal 8-23 [facility] Comment on above: Performed By: #### P RCAL, BMPX, CRP, PT #### [facility] [employer] [address] [place] [address] Clinical Safety Manager: Wenceslao Rose MD Basic Metabolic Panel w/ Ref mitchel to MGon 10-16-2022 Anion gap [Moles/Vol] 11 mmol/L 9 - 17 mmol/L [facility] Calcium [Mass/Vol] 8.1 mg/dL Low 8.6 - 10. 4 mg/dL [facility] Chloride [Moles/Vol] 104 mmol/L 98 - 10 7 mmol/L [facility] CO2 [Moles/Vol] 23 mmol/L 20 - 31 mmol/L [facility] Creatinine [Mass/Vol] 1.13 mg/dL 0.70 - 1.20 mg/dL [facility] GFR/1.73 sq M.predicted MDRD (S/P/Bld) [Vol rate/Area] - PINF [facility] Comment on above: These results are not [...] [Mass/Vol] 95 mg/dL 70 - 99 mg/dL [facility] Interpretation and review of laboratory results Abnormal [facility] Potassium [Moles/Vol] 3.6 mmol/L Low 3.7 - 5.3 mmol/L [facility] Sodium [Moles/Vol] 138 mmol/L 135 - 144 mmol/L [facility] Urea nitrogen [Mass/Vol] 16 mg/dL 8 - 23 mg/dL [facility] C-Reactive Proteinon 023 CRP [Mass/Vol] 86.3 mg/L High 0.0-5.0 [facility] Comment on above: Performed By: #### M G, CBC, BMP #### [facility] [employer] [address] [place] [address] Clinical Safety Manager: Wenceslao Rose MD CRP High sensitivity method [Mass/Vol] 86.3 mg/L High 0.0 - 5.0 mg/L [facility] Interpretation and review of laboratory results Abnormal [facility] CBC with Auto Differentialon 10-16-2022 Absolute Eos # 0.13 [place] [facility] Absolute Immature Granulocyte 0.00 [facility] Absolute Lymph # 0.82 Low [facility] Absolute Luce # 0.88 High [facility] RS [facility] Basophils (Bld) [#/Vol] 0.00 10*3/uL [facility] Basophils/100 WBC (Bld) 0 % 0 - 2 % [facility] Eosinophils/100 WBC (Bld) 2 % 1 - 4 % [facility] Hematocrit (Bld) [Volume fraction] 33.5 % Low 40.7 - 50.3 % [facility] Hemoglobin (Bld) [Mass/Vol] 10.2 g/dL Low 13.0 - 17.0 g/dL [facility] Immature granulocytes/100 WBC (Bld) 0 % 0 [facility] Interpretation and review of laboratory results Abnormal [facility] Lymphocytes/100 WBC (Bld) 13 % Low 24 - 44 % [facility] MCH (RBC) [Entitic mass] 22.5 pg Low 25.2 - 33.5 pg [facility] MCHC (RBC) [Mass/Vol] 30.4 g/dL 28.4 - 34.8 g/dL [facility] MCV (RBC) [Entitic vol] 73.8 fL Low 82.6 - 102.9 fL [facility] Monocytes/100 WBC (Bld) 14 % High 1 - 7 % [facility] Morphology Ck (Bld) [Interp] ANISOCYTOSIS PRESENT [facility] Morphology Ck (Bld) [Interp] MICROCYTOSIS PRESENT [facility] NRBC Automated 0.0 0.0 per 100 WBC [facility] Platelet distribution width (Bld) [Ratio] 22.2 % High 11.8 - 14.4 % [facility] Platelets (Bld) [#/Vol] See Reflexed IPF Result [facility] RBC (Bld) [#/Vol] 4.54 10*6/uL 4.21 - 5.77 m/uL [facility] Segmented neutrophils/100 WBC (Bld) 71 % High 36 - 66 % [facility] Segs Absolute 4.47 [facility] WBC (Bld) [#/Vol] 6.3 10*3/uL [facility] CBC with Diffon 10-16-2022 Abs. Basophil 0.00 k/uL Normal 0.0-0.2 [facility] Comment on above: Performed By: #### C DP, IPF #### [address] [address] Clinical Safety Manager: Wenceslao Rose MD Abs.Imm.Granulocyte 0.00 k/uL Normal 0.00-0.30 [facility] Comment on above: Performed By: #### C DP, IPF #### [place] [address] Clinical Safety Manager: Wenceslao Rose MD Abs.Neutrophil (Seg) 4.47 k/uL Normal 1.8-7.7 [facility] Comment on above: Performed By: #### C DP, IPF #### [address] [address] Clinical Safety Manager: Wenceslao Rose MD Basophils/100 WBC (Bld) 0 % Normal 0-2 [facility] Comment on above: Performed By: #### C DP, IPF #### [facility] [employer] [address] [place] [address] Clinical Safety Manager: Wenceslao Rose MD Eosinophils (Bld) [#/Vol] 0.13 10*3/uL Normal 0.0-0.4 [facility] Comment on above: Performed By: #### C DP, IPF #### [facility] [employer] [address] [place] [address] Clinical Safety Manager: Wenceslao Rose MD Eosinophils/100 WBC (Bld) 2 % Normal 1-4 [facility] Comment on above: Performed By: #### C DP, IPF #### [address] [address] Clinical Safety Manager: Wenceslao Rose MD Immature granulocytes/100 WBC (Bld) 0 % Normal 0 [facility] Comment on above: Performed By: #### C DP, IPF #### [address] [address] Clinical Safety Manager: Wenceslao Rose MD Lymphocytes (Bld) [#/Vol] 0.82 10*3/uL Low 1.0-4.8 [facility] Comment on above: Performed By: #### C DP, IPF #### [address] [address] Clinical Safety Manager: Wenceslao Rose MD Lymphocytes/100 WBC (Bld) 13 % Low 24-44 [facility] Comment on above: Performed By: #### C DP, IPF #### [address] [address] Clinical Safety Manager: Wenceslao Rose MD Monocytes (Bld) [#/Vol] 0.88 10*3/uL High 0.1-0.8 [facility] Comment on above: Performed By: #### C DP, IPF #### [address] [address] Clinical Safety Manager: Wenceslao Rose MD Monocytes/100 WBC (Bld) 14 % High 1-7 [facility] Comment on above: Performed By: #### C DP, IPF #### [address] [address] Clinical Safety Manager: Wenceslao Rose MD Morphology Ck (Bld) [Interp] ANISOCYTOSIS PRESENT Normal [facility] Comment on above: Result Comment: MICR OCYTOSIS PRESENT Performed By: #### C DP, IPF #### [address] [address] Clinical Safety Manager: Wenceslao Rose MD Neutrophil (Seg) 71 % High 36-66 [facility] Comment on above: Performed By: #### C DP, IPF #### [address] [address] Clinical Safety Manager: Wenceslao Rose MD Erythrocyte distribution width (RBC) [Ratio] 22.2 % High 11.8-14.4 [facility] Comment on above: Performed By: #### C DP, IPF #### [address] [address] Clinical Safety Manager: Wenceslao Rose MD Hematocrit (Bld) [Volume fraction] 33.5 % Low 40.7-50.3 [facility] Comment on above: Performed By: #### C DP, IPF #### [address] [address] Clinical Safety Manager: Wenceslao Rose MD Hemoglobin (Bld) [Mass/Vol] 10.2 g/dL Low 13.0-17.0 [facility] Comment on above: Performed By: #### C DP, IPF #### [address] [address] Clinical Safety Manager: Wenceslao Rose MD MCH (RBC) [Entitic mass] 22.5 pg Low 25.2-33.5 [facility] Comment on above: Performed By: #### C DP, IPF #### [address] [address] Clinical Safety Manager: Wenceslao Rose MD MCHC (RBC) [Mass/Vol] 30.4 g/dL Normal 28.4-34.8 [facility] Comment on above: Performed By: #### C DP, IPF #### [address] [address] Clinical Safety Manager: Wenceslao Rose MD MCV (RBC) [Entitic vol] 73.8 fL Low 82.6-102.9 [facility] Comment on above: Performed By: #### C DP, IPF #### [address] [address] Clinical Safety Manager: Wenceslao Rose MD NRBC Automated 0.0 per 100 WBC Normal 0.0 [facility] Comment on above: Performed By: #### C DP, IPF #### [address] [address] Clinical Safety Manager: Wenceslao Rose MD Platelet Count See Reflexed IPF Result Normal 138-453 [facility] Comment on above: Performed By: #### C DP, IPF #### [facility] [employer] [address] [place] [address] Clinical Safety Manager: Wenceslao Rose MD RBC (Bld) [#/Vol] 4.54 10*6/uL Normal 4.21-5.77 [facility] Comment on above: Performed By: #### C DP, IPF #### [address] [address] Clinical Safety Manager: Wenceslao Rose MD WBC (Bld) [#/Vol] 6.3 10*3/uL Normal 3.5-11.3 [facility] Comment on above: Performed By: #### C DP, IPF #### [address] [address] Clinical Safety Manager: Wenceslao Rose MD Immature Platelet Fractionon 10-16-2022 Platelet, Fluorescence 154 [address] N [facility] [facility] Comment on above: ORDERED BY LAB Platelet, Immature Fraction 5.3 % 1.1 - 10.3 % [facility] [employer] Comment on above: ORDERED BY LAB [facility] [employer] Microscopic Urinalysison Casts UA 5 TO 10 HYALINE Refe rence range defined for non-centrifuged specimen. [facility] [employer] Epithelial Cells UA 2 TO 5 [facility] RBC clumps Auto (Urine sed) [#/Area] TOO NUMEROUS TO COUNT [facility] Comment on above: Reference range defi radha for non-centrifuged specimen. WBC, UA 50 TO 100 [facility] PLT, Immature Fract.on 10-16 Platelet, Fluoresc. 154 k/uL Normal 138-453 [facility] Comment on above: Result Comment: ORDE RED BY LAB Performed By: #### C DP, IPF #### [facility] [employer] [address] [place] [address] Clinical Safety Manager: Wenceslao Rose MD PLT, Immature Fract. 5.3 % Normal 1.1-10.3 [facility] Comment on above: Result Comment: ORDE RED BY LAB Performed By: #### C DP, IPF #### [place] [id number] Clinical Safety Manager: Wenceslao Rose MD PTon 10-16-2022 INR Coag (PPP) [Relative time] 1.2 {INR} Normal [facility] Comment on above: Result Comment: Therapeutic Range: Moderate Anticoagulant Intensity: INR = 2.0-3.0 High Anticoagulant Intensity: INR = 2.5-3.5 Performed By: #### P RCAL, BMPX, CRP, PT #### [facility] [employer] [address] [place] [address] Clinical Safety Manager: Wenceslao Rose MD PT Coag (PPP) [Time] 12.4 s High 9.1-12.3 [facility] Comment on above: Performed By: #### P RCAL, BMPX, CRP, PT #### [address] [address] Clinical Safety Manager: Wenceslao Rose MD Procalcitoninon 10-16-2022 Procalcitonin 0.20 ng/mL High <0.09 [facility] Comment on above: Result Comment: Suspected [...] entered into the Change in Procalcitonin Calculator (www.whngdh-edj-jyrhbnsrxa.SWEEPiO) to determine the patient's Mortality Risk Prognosis In healthy neonates, plasma Procalcitonin (PCT) concentrations increase gradually after , reaching peak values at about 24 hours of age then decrease to normal values below 0.5 ng/mL by 48-72 hours of age. Performed By: #### M G, CBC, BMP #### [facility] [place] [id number] Clinical Safety Manager: Wenceslao Rose MD Interpretation and review of laboratory results Abnormal [facility] Procalcitonin [Mass/Vol] 0.2 ng/mL High NINF - 0.09 ng/mL [facility] [employer] [facility] Comment on above: Suspected Sepsis: <0.50 ng/mL [...] entered into the Change in Procalcitonin Calculator (www.sknegd-wvl-myeflkawcc.SWEEPiO) to determine the patient's Mortality Risk Prognosis In healthy neonates, plasma Procalcitonin (PCT) concentrations increase gradually after , reaching peak values at about 24 hours of age then decrease to normal values below 0.5 ng/mL by 48-72 hours of age. [facility] Protime-INRon 10-16-2022 INR Coag (PPP) [Relative time] 1.2 {INR} [facility] Comment on above: Therapeutic Range: Moderate Anticoagulant Intensity: INR = 2.0-3.0 High Anticoagulant Intensity: INR = 2.5-3.5 Interpretation and review of laboratory results Abnormal [facility] PT Coag (PPP) [Time] 12.4 s High [facility] UA w/Reflex Cultureon 2022 Bilirubin, SemiQt,Ur Negative Normal NEG [facility] Comment on above: Performed By: #### M G, CBC, BMP #### [facility] [address] [place] [address] Clinical Safety Manager: Wenceslao Rose MD Blood, Urine LARGE Abnormal NEG [facility] Comment on above: Performed By: #### M G, CBC, BMP #### [facility] [address] [place] [address] Clinical Safety Manager: Wenceslao Rose MD Clarity (U) Cloudy Abnormal CLEAR [facility] Comment on above: Performed By: #### M G, CBC, BMP #### [facility] [address] [place] [address] Clinical Safety Manager: Wenceslao Rose MD Color (U) Yellow Normal YEL [facility] Comment on above: Performed By: #### M G, CBC, BMP #### [facility] [address] [place] [address] Clinical Safety Manager: Wenceslao Rose MD Glucose Ql (U) Negative Normal NEG [facility] Comment on above: Performed By: #### M G, CBC, BMP #### [facility] [address] [place] [address] [phone] Clinical Safety Manager: Wenceslao Rose MD Ketones Ql (U) MODERATE Abnormal NEG [facility] Comment on above: Performed By: #### M G, CBC, BMP #### [facility] [employer] [address] [place] [address] Clinical Safety Manager: Wenceslao Rose MD Leukocyte esterase Test strip Ql (U) SMALL Abnormal NEG [facility] Comment on above: Performed By: #### M G, CBC, BMP #### [facility] [employer] [address] [place] [address] Clinical Safety Manager: Wenceslao Rose MD Nitrite,Ur Negative Normal NEG [facility] Comment on above: Performed By: #### M G, CBC, BMP #### [facility] [employer] [address] [place] [address] Clinical Safety Manager: Wenceslao Rose MD PH,Ur 5.5 Normal 5.0-8.0 [facility] Comment on above: Performed By: #### M G, CBC, BMP #### [facility] [employer] [address] [place] [address] Clinical Safety Manager: Wenceslao Rose MD Protein Ql (U) 2+ Abnormal NEG [facility] Comment on above: Performed By: #### M G, CBC, BMP #### [facility] [employer] [address] [place] [address] Clinical Safety Manager: Wenceslao Rose MD Spec. Wright,Ur 1.023 Normal 1.005-1.03 0 [facility] Comment on above: Performed By: #### M G, CBC, BMP #### [facility] [address] [place] [address] Clinical Safety Manager: Wenceslao Rose MD Urobilinogen,Ur Normal Normal NORM [facility] Comment on above: Performed By: #### M G, CBC, BMP #### [facility] [employer] [address] [place] [address] Clinical Safety Manager: Wenceslao Rose MD Urinalysis with Reflex to Cu ltureon 10-16-2022 Bilirubin Urine Negative NEGATIVE [facility] Color, UA Yellow Yellow [facility] Glucose Auto test strip (U) [Mass/Vol] Negative NEGATIVE [facility] Interpretation and review of laboratory results Abnormal [facility] Ketones (U) [Mass/Vol] MODERATE Abnormal NEGATIVE [facility] Leukocyte esterase Auto test strip Ql (U) SMALL Abnormal NEGATIVE [facility] Nitrite Auto test strip Ql (U) Negative NEGATIVE [facility] Protein (U) [Mass/Vol] 5.5 mg/dL 5.0 - 8.0 [facility] Protein (U) [Mass/Vol] 2+ Abnormal NEGATIVE [facility] Specific Wright, UA 1.023 1.005 - 1.030 [facility] Turbidity UA Cloudy Abnormal Clear [facility] Urine Hgb LARGE Abnormal NEGATIVE [facility] Urobilinogen, Urine Normal Normal [facility] Urinalysis,Microon 3 Casts 5 TO 10 HYALINE Normal 0-8 [facility] Comment on above: Result Comment: Refe rence range defined for non-centrifuged specimen. Performed By: #### M G, CBC, BMP #### [facility] [address] [place] [address] Clinical Safety Manager: Wenceslao Rose MD Epithelial cells LM Ql (Urine sed) 2 TO 5 Normal 0-5 [facility] Comment on above: Performed By: #### M G, CBC, BMP #### [facility] [address] [place] [address] Clinical Safety Manager: Wenceslao Rose MD Urine RBC's TOO NUMEROUS TO COUNT Normal 0-4 [facility] Comment on above: Result Comment: Refe rence range defined for non-centrifuged specimen. Performed By: #### M G, CBC, BMP #### [facility] [address] [place] [address] [phone] Clinical Safety Manager: Wenceslao Rose MD Urine WBC's 50 TO 100 Normal 0-5 [facility] Comment on above: Performed By: #### M G, CBC, BMP #### [facility] [employer] [address] [place] [address] Clinical Safety Manager: Wenceslao Rose MD Tobacco Screening.on 023 Adult depression screening assessment No [facility] mariel 250 DO Work Phone: Fall risk assessment a) No falls within the last year [facility] mariel 250 DO Work Phone: Tobacco use status [facility]PH[facility] b) No [facility] [employer] mariel 250 DO Work Phone: Tumor Staging Formon 022 Tumor Staging Form [id number] Normal [facility] URINALYSIS, REFLEX MICROSCOP ICon 05-06-2022 Bilirubin Ql (U) Negative Negative [facility] Clarity (Unsp spec) Turbid Abnormal Clear [facility] Color (U) Red Abnormal Yellow [facility] Glucose Test strip (U) [Mass/Vol] Negative Negative [facility] Hemoglobin Ql (U) 3+ Abnormal Negative [facility] Ketones Ql (U) Negative Negative [facility] Leukocyte esterase Test strip Ql (U) 75 Danilo/mL Abnormal Negative [facility] Nitrite Ql (U) Negative Negative [facility] pH (U) 7.0 [pH] 5.0 - 8.0 [facility] Protein (U) [Mass/Vol] 1+ Abnormal Negative [facility] RBC LM.HPF (Urine sed) [#/Area] /[HPF] Abnormal 0-3 /HPF [facility] Specific gravity (U) [Rel density] 1.008 1.005 - 1.030 [facility] Urobilinogen Ql (U) Negative Negative [facility] WBC LM.HPF (Urine sed) [#/Area] 11-25 /HPF Abnormal 0-5 /HPF [facility] Screenson 03-30-2022 Screens [id number]#1.00CD:127 [facility] Ambulatory Visit Summaryon 0 03-29-2022 Ambulatory Visit Summary TAURUS GARCIA :1945 Visit Date:03/29/2022 Ambulatory Visit Instructions Your Diagnosis Malignant neoplasm of lateral wall of bladder BPH (benign prostatic hyperplasia) Gross hematuria Tests Performed CT Abdomen/Pelvis w/ Contrast -- Results Pending -- Please visit your patient portal for your results or contact your primary care physician. Your Care Team Attending Physician - Autumn Molnia MD, Yoko Hair Primary Care Physician - KOMAL NGUYEN MD This Is Your Medications List Contact prescribing [...] and CT Where: [facility] [address] [place] [phone] Medications What How Much When Instructions Unchanged [...] apnea, adult Pulmonary embolism Radiculopathy Urge incontinence [facility] Patient Educationon 03-29-20 Patient Education Oncology Transurethral [...] including vitamins, herbs, eye drops, creams, and esnx-ewi-adsumgg medicines. ? Any problems you or family [...] tells you to take them. ? Taking dmls-ywr-uvdjljm medicines, vitamins, herbs, and supplements. Tests You [...] not included)... [facility] Urology Office/Clinic Noteon 03-29-2022 Urology Office/Clinic Note [...] We will (more content not included)... [facility] Comment on above: Result Comment: Elec [...] Impaired glucose tolerance test / SNOMED CT 945071820 / Confirmed BPH (benign prostatic hyperplasia) / SNOMED CT 035001993 / Confirmed Calcaneal spur / SNOMED CT 82497523 / Confirmed Gross hematuria / SNOMED CT 941162182 / Confirmed Hypercholesteremia / SNOMED CT 34930406 / Confirmed Hypertension / SNOMED CT 6006541397 / Confirmed Lumbosacral spondylosis without myelopathy / SNOMED CT 33430810 / Confirmed Macular edema / SNOMED CT 37394938 / Confirmed Bladder mass / SNOMED CT 5239411323 / Confirmed Myasthenia gravis / SNOMED CT 907844880 / Confirmed Radiculopathy / SNOMED CT 084485807 / Confirmed Obesity / SNOMED CT 3437730567 / Confirmed Obstructive sleep apnea, adult / SNOMED CT 0263305889 / Confirmed Obstructive apnea / SNOMED CT 863460047 / Confirmed Pulmonary embolism / SNOMED CT 62880736 / Confirmed Histories Past Medical History: No active or resolved past medical history items have been selected or recorded. Family History: Cancer Mother Heart disease Father Procedure history: Cystoscopy and transurethral resection of bladder ([id number]) on 03/03/2022 at 76 Years. Cystoscopy ([id number]) on 12/27/2021 at 76 Years. Transurethral water vapor ablation of prostate ([id number]) on 02/16/2017 at 71 Years. CE - Cataract extraction ([id number]). Cardiac catheterization ([id number]). Neck Surgery ([id number]). Comments: 02/17/2022 14:13 EDT - Davina ROMERO, [...] results Radiology results ECG interpretation Condition Plan [employer]hes[employer] (ASA) physical status classification: Class III. Anesthetic Preoperative Plan Anesthesia: General. . Anesthetic plan, risks, benefits, and alternatives discussed with the patient and/or family. Risks discussed: nausea, vomiting, headache, sore throat, dental injury, serious complications. Patient verbalized understanding. Communication: face to face with (patient 5 minutes, Pt educated on the importance of smoking cessation.). [facility] Comment on above: Result Comment: Elec tronically Signed By: Jhonny Fuentes Jr, DO\.rubi\Date and Time Signed: 03/23/22 12:18 EDT Coding Summary.on 03-14-2022 Coding Summary. CD:[id number] Gh0bWw +PGhlYWQ+RW4CJSBpV46wlBNpk O1SY8gAUS0FZPWCQFNXRV7JEU3 heCI9UPcsQ4SfjwHb UogwcZHlMY28DNs3QCQ0fCgcWF zvcR0zdQVnQ9k6MzGiEO89xB26 EMfzYWCgAkR3HuFyeofqdTIx V2snGcNbwECmTfn+PHRhYmxlIH yiNKLeXZzkEWGdWhGlkFjqZZ1k Jo3vHSNoXJUobKhiiMZaDbBe z7jjQYCuMPrsBC5prAhiR8YieD U3EHZcy4n9Qd72oLM+PHRkIHN0 yWvzRKinb522DtXzj2rxUAY2 kKWaXSjkLMD0D90jx9A5OOVlRB WaEVE2jIY8hS8tyFlfaltqY3Oe eXHuVxD6ZOB6zNZomN3nzYaa ivdteK7oOcw+J59HIX2LHVTFGV 4ZWht5O9FiNugtzYA+EX25IGRj GD30fURulXDvs9wmrPb8OvGm REQjAZT0gPnsEVliu0OuXNZbX6 9rvVTqz3P3KKFtjOvspJAuDwAx tQP2dM3xFUxtuohdw4chhfln Acxyl9xdct79hC98D25cZQqfYC RoZOG4IPYyDIUobFonpu4lkD5l Ii8+UPitw2jin1fllNt8MoWw LODxafVnhHagSUB6v2JkMk28D9 XuwCimy5GmMli5fr40fCLic0D7 kZJ4JQeaMGApgG9dSLxhAtH2 DCVgEoFlwB40mXNqNNixNs8cmB krdUyiZK8dMXFvuhvuDLDuyK9g FEJiqJWfaJanHU3rOMPmyaqs k034CkLlJJN3YXZzlFZsE3WhcK 1dXlHtLCYiXMHeP3CdeCXhIWsa C142ASbzGqH8RKJpqjCoQ8Cu FHIziLquOvB6s1B2Jx6Gr3Nzyw atFAZ6UBveEYY3LgH6DzVdSgC9 E9LpQwp5QDHwhDkcND6yQ6Tj KVVllmtjbdeqzNS7JWMkWFWgnL 94xEHdLGmpQh0qh8M4j273YNYx FFYryZ57Nq6taViyHHPejXKV jH6pschqt0dvtejlUrXkGWQcQI k5OMu5KLJrgOepCiGbWHK9KwV5 RQB1vJBvkX8tpGuclrbrlY8r Oyc+V63vbH6gEQH5XOC5tcirYC FnmvDiOA73SK69B7HzUnzzvJWz bGU+EMRkycPxjLygBT2jIzEw w3txu7ZtOFyfK6DrMCYeMPwrDh a3LADjYAJ1sWZ5pV6wVGPiEIkd l5I3yDH0F3BfawVfwb5du6kf JCSvLYyuL81mhITqx2U5WTQzuH Y8DWBzqXfuSrCvuJ56Gyp+PGNv kBuss9SjKxpjx6afp2dumBf1 BrCsZXWmmtIruZhpPKB6s1QuIw 94L42eZKnsZVVhGHZjPPZlPHWu vZypna2ddU4nRe7+PGNvbCB3 mNQ8sY8nMJSaOyH8BCscY930Ig CniOLzVmthl0ncl1cpvPs8BuMc IRGmpuBpsKcpBQY2e7SqGl82 V34oHUmwBCBuGDAtHHSiGNTwvQ ywzi0zrO2zYs4+DB8lk1rrqj97 lL28dZD+MPVvHHS4oCpnHEwl VJPyvV5cMIcnQdQ0BRDxYvKcwB 43oTLvNSrsEz6scZrmmVdbKN1r JSNcrjxca414CgDdc5ooJMAr zUXuBLodNUF1W90ze6X8LUDnOT QnDYC6bXK8uF2qwUuxkukkzPVz uGtcslHweWuhSDmyYEojP734 IHRvcDsnPlBhdGllbnQgTmFtZT u6S6AcHre4TRPdbAfiHM1mgWYv NRrpGf3qkIeyvPzwJQ6gJRHg aevuc028SjIqp6rvJQUxiGUyQD cvYUJ5C82at6P1GZKhCUDpSKM5 oBT4mX7uzRundkdciFNypGdm twFpxRskZYdyUOnuA977PJLqzP gkPgUtpwPaBDRonLU3WW16XE41 vAZwc7Z9pSS6E3QgXJGrsgzz poyssCN9LCAvSXRqkD03Rg0biA lxTc5cVDGmXQR8HCDutCKpL1Ba jS0zKmHhITMfEJOqS5YlsWLj KFviF959VYkfYrE4RIFbudIiP8 BbGTNzuHmrYvS3c3R2Wn4LH6B7 OT18NP22nFXfp8P3oJD1Q3Dq VZPtmadvxgolmRR9WLOoLDYheA 43To2otBmjIi6rKCDvMFO4GOLi tEZoK3XxfQ4zDxMxNWQaNKMy J8JuuTFxAIzjV177QNdvUqV5GS SejaJmK5RyQMItqSotWtI1s0C2 Zf6SPUq2ZH43CK63nQLiy4B4 oEC5T2QdITJnmpzbeaksmPL5AH QkXWIjtC65Rl8uvEufNp9xOTOw WHE6EFImaFHgW6RabR7vArCj AFAdTXSwH5BmpWOrNHmgR042VS poXaT1BCEajdQiH7EtOTEkbHom GaD9f0I9Go5IDNUsBC39KRC2 gGL1EL16AL49U3MbQtopiEGmcG U+PHRhYmxlIHdpZHRoPScxMDAl ReVbdBquAN6oHv4wYNDgJAEn oPrhoKLeBtMcb1ueOHOsGLqgGB 1ncQveV4SnhFM5BXPne1t7Hu02 F15nT3FbzPN+FOLkcHM9tYG7 vK9pSpAzCzW9FLnxQ846VbAfeZ TeQbvev1kpc1wjdIp3XyL9JVJt ugHphZfgBGQ8r9NxTn88M52l IHdpZHRoPSIxNSUiIHZhbGlnbj 5qiP9gAa7+CXHqdYH6aQT3aO5x VjMoEnG3OKvzI421NvPymTEs Wpzei0pbu5iajFx3QrZlBFGqkk VdtNeeYCY3u1AyIq97K3MrqAsj p8CyLmg8wi21iUWai7I5uIX5 I7IpYDUubwxdsNMskRagDZ6bQN PfpxbiFTVhfD1vSKOjY3g0JsDh TzF3IJpzB1ZcspE9JYDhdVOo EYdbCOJ6H47hk3K8CARyFSNzZR J8iLM1aW1iuXgepaaorYRnxHmc zyNhlPozQJhsYKxxC147OHJk iJepOAGljM2xXZKvfVNltIzeUG 0xMVOiyhdbQwWPF42HVysyE9kY FjdVGdWQJR57ZQ51vZSfm2Q0 zWR7X7CgDWZcnttshcnteLS2MR XyEYPjrW03eFJmLIhvMs8ce5U8 q006XAHdTDGuiZ75Dx0yzMly XNHqhKPGuW3cxbvuz4opyftfVc LeEEZgQZk5KHr3CCPdcIufRnPb PKR4SeV6AHH0kXYikN6pgXuv quzolE8zFun+PZAfFNOgRJe9YT wvdGQ+TZJdMSY3lYwsNWcxAJSo sK7cNGTrH0r2DcTjVwP5WQyk G2ZfFOMvayxcNy25qD2bZmXsKe Z8TPnpE4BenhA6OZYktNMeSVea BHC7T09mr6H0YXUfXOIsIMK5 wQL7rF9aoDvsrwvreXJcqVgesd BrmAkaKZieFPjpZ614CQGpeTdm Lge7QJfdELZaKZ08PD62gSBk k0I0oXH8M3VgLWVufyejmgwkbW T3KAXyBYAdzH78uRUtJAoiSc1f h7S9c753DGHuVEHwlQ84Tf8f vGoiPEVvxMWBwQ7vpkgze1muju wkXpGcHUZlRXg0ZBq4OICwnHok IgDdRFX0LeO8TDJ7lONmoH5r xWekyumhxL7hRwz+TWFsZTwvdG Q+ZGFhXSM4aCayIAxeYIHmnL2o EZAbP7d0FgCyFvV6TVwnZ0Dv WKDtgkyuXp36mG4yWiQsEvY6LR dhY2BruyE4KGLdwLAzKEcuVLC7 T86fm7N9ZSStUNHbRFG9xBK9 rN6qzEbhsbtswLGqqVsdynYtqP oaENilAInyK816DPSbhShgRzFn AhJkDLDyewecA6ViSSNDXAie S6TvB9PrjXdwiLL+SV17xc70D3 EhXuxsWzd2VPWkCRD4uZI5nV2y TBGlGUrxi0C2hLZ6E7FhpkOk ah5st7meWBXhEZapT19daEBnb5 P0PJYtuSJ2RFXpnFoeFnOtaM68 Oyc+WHQqzNulp0PvNhhbo3wo p2pezVw0KhUqYPMlmfHocIalUE X7t8ArWf10Q03eKZneUBFxZAKw FZTsFPTtcOcdsb5bbX8qJr8+ FHIglWC4lHX0iJ4vHkQsMbB4ED niC365YlBxoHTcQrnny4war2et lZd2LyJiVSUjizYetBdrSBF9 x0EzVo04P1PibYvrz4VmMze9xe 98wUKie7Z5fAU8N6OpOZBsaaal tODjuRbkZK8uHFDgpwvzDHNz qD7fAZFjB0d4RyBfWeR8IZhyV9 BbwzS1XRLttBOtQKIzgBJXtI2w kpacg3vxthjdBbWcHMBrHXw1 EYr9LQXomWysLaFrMBX9BhW8KP Z7wWUnpG3xiPrcwifnnW4eErw+ AQc5b3djkXWwZI2ihAD0ST63 TG68iLMzj0M0kRT2X7UmIKZraq eifrnqyXA2ZEJrBVDfbN84Wy1t kCfvPx0yITEiRCG1AUXssDQs Y1SbsV7gPrGnWJQeOKBeX9BwvX VfZPfcC397ZHaaHbG5HDDbaxCn Q9IqFOPcaOmqNkA6e5U8Wt8J FO73YA81VY77oAXju0A3oID5S6 RyTUCpvcuuckneeVW6ABLqIZSj qB37Om0itSihDd6qVWMaVIZ0 NBSwtMOhH0JgwI4vCiKoEHWbNH NvD6XswUCzTVtkG147ZPusFfC9 BJGpefVvL3JwLIYurYcaJqT3 s3C9Lr3QMz01PG26EU57kAGjl5 W1kYN0R3KjQHAytrogxqopcWZ6 GHHsQHHdxV46Sp1fnCkdYm3r EXNoWLQ9WKPvmZJbV1YtzT4bNb EtWEWdTAWyO5YafPBtLZrrV280 ZXnzOyQ2IUPkxaZuW9QjWAAr xJliTnX5e0O6Qg6PCGlhulk5B8 RkPjwvdHI+EM59EHZfDP29gJPe qZVsj6swuMx1HvWgIMQgTAK0 eWxl (more content not included)... [facility] Progress Note-Physicianon Progress Note-Physician Patient: TAURUS GARCIA Age: 76 years Sex: Male : 1945 Associated Diagnoses: None Author: Jhonny Fuentes Jr, DO Postoperative Information Post Operative Note: Post Anesthesia Care Unit. Anesthetic utilized: General. Health Status Allergies: Allergic Reactions (Selected) No Known Medication Allergies Problem list: All Problems Impaired glucose tolerance test / SNOMED CT 010149591 / Confirmed BPH (benign prostatic hyperplasia) / SNOMED CT 154501020 / Confirmed Calcaneal spur / SNOMED CT 64108064 / Confirmed Gross hematuria / SNOMED CT 404004988 / Confirmed Hypercholesteremia / SNOMED CT 27941944 / Confirmed Hypertension / SNOMED CT 0513140166 / Confirmed Lumbosacral spondylosis without myelopathy / SNOMED CT 76341700 / Confirmed Macular edema / SNOMED CT 64374378 / Confirmed Bladder mass / SNOMED CT 2228184613 / Confirmed Myasthenia gravis / SNOMED CT 807414024 / Confirmed Radiculopathy / SNOMED CT 981974173 / Confirmed Obesity / SNOMED CT 2341239013 / Confirmed Obstructive sleep apnea, adult / SNOMED CT 9884543173 / Confirmed Obstructive apnea / SNOMED CT 930500515 / Confirmed Pulmonary embolism / SNOMED CT 42207744 / Confirmed Physical Examination Vital Signs 03/03/2022 [...] Pressure 104 mmH (more content not included)... [facility] Comment on above: Result Comment: Elec tronically Signed By: Alfredo Watts DO, Jhonny Butler\cosme\Date and Time Signed: 03/14/22 08:36 EDT H&P Updateon 03-10-2022 H&P Update [id number]#1.00CD:127 [facility] H&P Update [id number]#1.00CD:127 [facility] Outside Recordson 03-10-2022 Outside Records [id number]#1.00CD:127 [facility] Postoperative Documentson Postoperative Documents [id number]#1.00CD:127 [facility] Coding Queryon 03-07-2022 Coding Query - From: Analisa Salazar To: Autumn Molina MD, Yoko Hair; Sent: 03/07/2022 13:03:40 EDT ! Subject: Coding Query Dr Rizvi, Please document the size of the bladder tumor- -Less than 0.5 cm -0.5 up to 2.0cm -2.0 to 5.0 cm -Larger than 5.0 cm Thank you, Kimberlee HIM Coding [facility] IntraOperative Documentson 0 03-07-2022 IntraOperative Documents [id number]#1.00CD:127 [facility] Consent for Anesthesiaon Consent for Anesthesia [id number]#1.00CD:127 [facility] Discharge Instructionson Discharge Instructions [id number]#1.00CD:127 [facility] IntraOperative Documentson 0 03-04-2022 IntraOperative Documents [id number]#1.00CD:127 [facility] IntraOperative Documents [id number]#1.00CD:127 [facility] Main OR Intraoperative Recor arianna 03-04-2022 Main OR Intraoperative Record IntraOp Document Type FT Summary Primary Physician: Yoko Rizvi Jr., MD Finalized Date/Time: 03/04/22 12:28:36 Pt. Name: JOSE TAURUS Nevarez/Sex: 1945 Male Med Rec #: [id number] Physician: Yoko Rizvi Jr., MD Financial #: [id number] Pt. 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 Time Out Complete 03/03/22 10:05:00 Outcomes Met? [...] and tissue Entry 1 Skin Integrity Intact, [place], Warm, and Skin Abnormality No Dry Outcomes Met? Yes Last Modified By: Zuleyma Martinez 03/03/22 10:42:49 Post-Care Text: The patient is free from signs and symptoms of injury caused by extraneous objects Patient Positioning FT Pre-Care Text: Identifies physical alterations that require additional precautions for procedure-specific positioning, verifies presence of p (more content not included)... [facility] Main OR PACU I Recordon 02-18 Main OR PACU I Record PACU Phase I Docum ent Type FT Summary Primary Physician: Yoko Rizvi Jr., MD Finalized Date/Time: 03/04/22 07:47:44 Pt. Name: TAURUS GARCIA/Sex: 1945 Male Med Rec #: [id number] Physician: Yoko Rizvi Jr., MD Financial #: [id number] Pt. Type: A Room/Bed: 11/19 Admit/Disch: 03/03/22 07:42:53 - 03/03/22 13:20:00 Institution: [...] 07:47:42 General Comments: 03/04/2022 0747hr Libertad-op doc bekah. HEATHER Marshall Finalized By: Lucy Ohara RN Document Signatures Signed By: [place] ROMERO, Debra 03/03/22 15:56 Debra Boyle RN 03/03/22 15:56 Lucy Ohara RN 03/04/22 07:47 [facility] Preoperative Documentson Preoperative Documents [id number]#1.00CD:127 [facility] Preoperative Documents [id number]#1.00CD:127 [facility] Consent for Procedure/Surger yon 03-03-2022 Consent for Procedure/Surgery [id number]#1.00CD:127 [facility] Consent for Treatmenton 02-18 Consent for Treatment [id number]#1.00CD:127 [facility] Inpatient Patient Summaryon 03-03-2022 Inpatient Patient Summary [address] [address] [facility] Clinical Discharge Instructions PERSON INFORMATION Name: TAURUS GARCIA PHYSICIANS Admitting Physician: Yoko Rizvi Jr., MD Attending Physician: Yoko Rizvi Jr., MD PCP: SARBJIT BRIDGES, KOMAL Hamlin Discharge Diagnosis: Malignant neoplasm of overlapping sites of bladder Comment: PATIENT EDUCATION INFORMATION Instructions: Post Op Patient Instructions - FT (CUSTOM) Medication Leaflets: Follow up: With: Address: When: Yoko Rizvi [facility], [address] [place] [address] [facility] (1) Within 2 to 4 weeks Comments: Reviewed pathology report and plan exudative treatment. Call for any problems. Call for followup appointment MEDICATION LIST New Medications [facility], [address] [place], [place] [id number], [phone] cephalexin (Keflex 500 mg Cap) 1 Capsules [...] times a day., Myasthenia Gravis Comment: [facility] Main OR Preoperative Recordo n 03-03-2022 Main OR Preoperative Record PreOp Document Type FT Summary Primary Physician: Yoko Rizvi Jr., MD Finalized Date/Time: 03/03/22 12:14:22 Pt. Name: TAURUS GARCIA/Sex: 1945 Male Med Rec #: [id number] Physician: Yoko Rizvi Jr., MD Financial #: [id number] Pt. Type: A Room/Bed: [facility] Admit/Disch: 03/03/22 07:42:53 - Institution: Case Times [...] Signed By: Zuleyma Martinez 03/03/22 12:14 [facility] Operative Reporton Operative Report Patient: MARGRET GARCIA Age: 76 years Sex: Male : 1945 Associated Diagnoses: None Author: Yoko Rizvi Jr., MD Postoperative Information Procedure: Cystoscopy with transurethral resection of bladder tumor, instillation of Mitomycin-C Date/ Time: 03/03/2022 11:30:00 Preoperative Diagnosis: Malignant neoplasm of overlapping sites of bladder (IJX07-PA C67.8, Discharge, Medical). Postoperative Diagnosis: Malignant neoplasm of overlapping sites of bladder (IEI63-NP C67.8, Discharge, Medical). Performed by: Yoko Rizvi [...] and there was no bleeding a 16 [place] Harrell cath was introduced. 40 mg of [...] . Specimens Removed: Bladder tumor. Prosthesis: 16 [place] Harrell catheter. . Estimated Blood Loss: 5 ml. Medications: Mitomycin-C 40 mg intravesical instillation. Complications: None. Anesthesia type: General. [facility] Comment on above: Result Comment: Elec tronically Signed By: Autumn Molina MD, Yoko Hair\.rubi\Date and Time Signed: 03/03/22 11:36 EDT Outpatient Surgery Discharge Instructionon 03-03-2022 Outpatient Surgery Discharge Instruction [place] [id number] Patient Discharge Instructions PERSON INFORMATION Name: TAURUS [...] Rizvi [facility], [address] [place] [address] [facility] (1) Within 2 to 4 weeks Comments: Reviewed pathology report and plan exudative treatment. Call for any problems. Call for followup appointment Pharmacy Information: You may receive a survey from [employer] asking you to rate your care experience. Your feedback is important and will help us understand what we do well and how we can improve the quality of care we provide to you, your loved ones and our community. It?s an honor to serve you. Thank you for choosing [facility] HERE ARE THE MEDICATION CHANGES THAT OCCURRED DURING YOUR HOSPITAL STAY New Medications [facility], [address] [place] [id number], [phone] cephalexin (Keflex 500 mg Cap) 1 Capsules [...] Gravis PATIENT EDUCATION INFORMATION Instructions: Medication Leaflets: [facility] Patient Education - Texton 0 03-03-2022 Patient Education - Text [facility] Outside Recordson 03-01-2022 Outside Records [id number]#1.00CD:127 [facility] Formson 02-28-2022 Forms [id number]#1.00CD:127 [facility] Coding Summary.on 02-24-2022 Coding Summary. CD:[id number] Gh0bWw +PGhlYWQ+CQ5NHQRwT21eiRQaa G1OG7aDKY3EUPGGIPGJWN3VUO9 gfLD1GOaaT1MvfxIp GjqxqPPcIQ76LSu1BMJ4qIswQR blbF0ilEKsW9c2HjZpVS72wH86 YYbvDXQoDmP3ZaQylektkSJe I6lfNvWrcMHbPrt+PHRhYmxlIH ooZWEoSWedMBZlQzXfiGjnTU8q Qp9aPPEtWNJyeEmxqWRuYgNj x7diCXImVQdmMZ7azReeB2TelQ H2OTLvs0p9Lw42fDF+PHRkIHN0 mJtlBHarc824YmIna8clTQW0 qEAeOIiqASZ2R93my5J4ZRPvEW KzTJU7hMM3kX6euCzidpoiX4Kn lPJvRdC5QIM7hIBuwD7fsOoc togloE6mWqi+H03CJU2GXPNQQI 9TXjs2H3WeCdzqaOO+PG79JOUs FM77kJWhgSRac4qeiFl3ShHd RIXkZVB7fPqxNEvvk8DrDHUgO9 7vfQZcm1R2NZMnmCxvrETcXgYk dIK5hI6sQInptoxjr0enphbx Duqpp6fzby51cB62F44oHHnsPH OsTFV3MWOoAVEhfObufw2zjI2f Ii8+RYtbw9kum6shfJm5LtWm IYNcgyZvhSnpSNO9d6HgUv48L2 RfdUjuc9ArGen6uh71uRTla1E8 qJE5CPuhQEPpoR3eXMfnBmW1 STEeBfWvwG94rYLgZHlvNi4agQ otqHanFL4hIMIheipjUJJijA3p LJGrwGAraXquOM1aCCSatbqi s960LxMyCLR9QNLfbVNbN5IouF 4nQjSdPCHuDDXwD2ZujPIuQIdi A969MHwwLrT9ODZadwWqZ9Jl AMFakSkyTzJ2s4R7Ea6Mm7Vscw cxSJF8NLpnEPH5YaJ6KbTrOlE2 B6UkNxy1WPRedVcoOV7xY2Do RYXbaolqpgdvaGP1MFPkPKVrdW 06pAEiFMlwNv9pt2W1v321PNGn KOCvwW73Xl7ccPznZWKkvWCQ uW9thxkca4gjyrliSqYxERWvDA i7MIs8RGFouSmsDjDvTHD5NlC1 OTV2tNNwoW5sxIuyooovmC6a Oyc+F00pnN6gWFJ8JIO3zrgfAW PgokFgGP76YX69S0JuDfuptHAw bGU+OOEosxJoeYplSE9kUuNt l8sot5GwTOnlN3PdDWYfGBlzQv t8IMInYWM5iXQ6kG9yRAWgTDpy c4M4iSA8V6OcvwCwju6zn1uo JWVpERnkN89zlAUiq7Y5RLLoeR H2ARYllIkkNgHghX48Kqk+PGNv dDsxi4KfAsigr9hwo5apfSb7 PiVlOGAzezQmsDqkQAP5x2UeBr 60D18mSRynDWBtUKZgKTKkRQOn pZoeao2btT8oMa0+PGNvbCB3 vSE0gW4dGXYbXkO1CXusE945Hz EleIMwNrbcu6edj7wrlHj8OxVs SGKmxpXkwFzxGJT3m7TzSa03 V13iCUxyDJObJVJcVDMwFYAoiN zpcf1xcO9nUu5+LK7dm2yzax61 aR45zUI+HPJjYEW5gUzkBIdz XDPihE6nRVcgUaQ8XCQvQqBewB 66dXEsANeyAz1fbXotuHrdWH7h PROvywmek029TfPja4urIILl aTKaJXiaPNK0T00uy6B3LKIgOV SjYQU3mWK6aC3fbMybtnakqGNp qZideoQqjFskESrvODcdH854 IHRvcDsnPlBhdGllbnQgTmFtZT e8H3JmKvg7RZOjeKpgOA8ysQEf WJnmYf9egPmgpJasCG0iGTZc uymqd216XfRkh1lbJPJiuKBoXL vtVQR7J09wc1H4YMGlAXYoTER0 bIX1qK1xiXsjtqptwQMvgCnw yzBalNroUOtcTQdsY197JZNfzV ybYrExerNuFJPpdEF4IT62DH69 zYMvd6T7dRR4D9YzOQWoicra xvnnlQO1UNTvFGYscM83Bh7zbA eiLa6kAPQaZNR5SXUveXChE3Ym jT0yJeLcLPRsRSFtW0EhmKPv FNbvB284ASelBuE5QHTuazMjM8 DoHDUtzRndZbK0z1E7Pf2MV4V1 YS89RO90rJAxz4X4jVH3E6Uq OIRxamacnfultVG9SCJaIRCauR 93Xg1biGnoLh1zCQZhJBS1TVRj aWTmE4AalJ0hPyZkVMDaJFJp K0FkmDZyEUsxF343DIktItY8AO QeuwOiG4YlURMldQvzHhT0t9Q7 Oo5VFYg9AF08TX96pRQwy7J7 mPT0N1OsLTAljuioyrbadQY1SO IuSZIynC90Ss7luRdqFa4qRZHp LBT0MOLnoNBvH9LkqK9pQvEq NUDcSQViK4OycQKjUGbgM653ZM lxVqQ5PSUxymIdX9FnQYNotLly VtP3y8C1Ho2NMUTtKJ88JOS4 nTE7VA09UO84G0VhRhkovTLojK U+PHRhYmxlIHdpZHRoPScxMDAl ObSvwFrrYR9uFp8lUYWvVMSz yEhkaRFuMbIgt8lsCQLhFYsrLL 7hnNohJ9SvyMR2YBVsb2m8Nm21 P11eB8CdoZX+EFQsgUN1uVV6 nR3kMbGiCjP2BLowQ819RcIubP QlIcsag8obh1ooyBj1DmV1VULd uhXcvOjfVRH0u9OpCz71E24d IHdpZHRoPSIxNSUiIHZhbGlnbj 2cjP7fSq8+DRTmmAO5vYE9dO7m NfLcUsO0ALufH636AyDfqRUn Vbyku3mlv6fpxIh9WcZpSLOmxb LlrNksRPI1n9VqGu83V9RqzEiv q9CcFaa3ks77dOCcv2Z6iAR1 U1ZiPHBtygvnoVHngNcgFM1wCH NidmpfXZRhiA9rJNXjL4s3VbUd UzL1OTxxW1FotgA0JNEbiLBf HYzhWDA1G47mx7I4FAOzSCPpAX E9eJG5jP2pgTrknfsgqGEwfFnh zbZiuFegPNcoYGdmV562EGQd nXpySZVbbO5nOIAscVWijXgyLF 0zRPBjnalaRlKQV56UJvcfN5mF ItsFBwHNZS84FB18iKCml4P8 rQE3R1DmBEZkpozefvpgcSG4LA MsNVEjgC97ySMxDKruPk1pn0Z7 c926IKLcZCIteK37Qq2txRml BGKlpRFBwP9boivot1womjrjXp RhQWGyKEh3HKu5GEDsiVgqEpWh QSA9AhB4GQS2oHStxP4ebNpp sonbzO5pGdm+QYCrKIKrETl3QU wvdGQ+SMMuDRW7uHidIPnpKQEh fS5wIPUoC5b4DmHaRcD3YTgb H0HdKUJkcnsxSr44dA3fCoZcAl Q3EZjfT9JdquO6GZAgyONxHSqv XKJ9L37tw2T8BPDbDMXxZQM8 sVB8jH1peKskbgjswIMxwDylli TdlGttOIlrEKevE116HIJsvSim Cqq6SZzvMOGhXY32DK46jUWh o0X4kMG6V0JpHSGtdggowtgrrT H5PQNhVIPinN04bKHxOYfaUt7o t2S1u518EAWaCKVmqS54Ji8v pYfmKWMasPIAuE4mykuly0hiuf ysElAtVMLmRRb9NXf6MGAarObi NrNzXIM6RbX7PEP9fPSltV3u pXduuidixR0fIqx+TWFsZTwvdG Q+MSZzPMU9tHpkTDkoOHQgyO8q OJKcH5w0OuOxBeX9CHjkQ2Go DAGyktmbKw21nN9eAeRgIcF0QY fhQ2CxxvX4NGRfgODyUBhgFRD3 M17vc7Q3MEXgSQAgBOH6sXG6 mO7kjFofjeowwPCecZfewyThkU yzFWroNIhnO864UGLhzWkpCd29 mMFxkGmblsU1Q9LuRpfruPV+ IE17FKFxOI46kPAxiTXco4xezQ d2LgQsEFOjFZP4eLamZRvcm4Lk EUUyN55euZIll6U4LWHkpMel iFOaZvEspGZ0gO8kACqpemlsp6 ysztnxMskoe9uyaf78yV74H93m IHdpZHRoPSIzMCUiIHZhbGln hl1piC2xYd8+REDdkWM3vFL9cD 8vXbBfFiW8NRzmE704SyHwcJVe Oabmk5oog2rhqKf9EoGmVDYc prQicAljGAT1e3BfKx44O03hSY giSOPcTXNiPIQlVBNelWbnyh7s rQ8eFd5+OC1sa1tohr66iT47 dHI+QCAkPCP6zQcqPOifTBRlpQ 4fFQpqPaV3WVUuZgEokP77xAKv LHhtYn6rqZzxjVjxTB8eNDTw qvfos780TaFgr1saDKYzxMUaKF zqWXE3C84sz8L2YLPhUNSqNJO6 zRH5zY0cdVbyoxhooQLmxXwb taKmwFuyPVbrSOwzD853NPWxxM aoXsRcfPSlF2bxivNCXG7pQicd dGQ+MCUdAML8mIblFMoaOOSr eV0qFXKoC0w2EsEeZqQ6PKdrL7 RnqiI0WUTsiYFzCEQstPNPtH5d mgzbu8oxuwojJtZfNRIwBGd9 EFp4LFVzbBopRcVfRMD8NwF3DM R0mSVfnQ9knElkwasqeC1hFcb+ RklOOjwvdGQ+FDDqUBQ1hXuf FSnhUZGmoT7pPXBhS7a6HpNmMi P5UIbsS2TgfwY1HJBxnBNvVDSd gWTKiQ2azutxf4qrrufmUsVo IUFsEDn1WEb6TBStmTnuOuGwXQ A6MaJ3HJL6tALjdS0rzXpqzhme gB9wPva+TVJOOjwvdGQ+PHRk IEX2cCmbNUgqDRKylM1lAKStQ1 n4MzQtVlG1CSqmK9AhheU7WLTo aEHbWSXaoJBBhT9klekux8yj kgldDgMaFENcAEs7GKp3JUFbmU dlQpPmYVL8WuQ9SOB1vKJvgR2l lTjadncyaA2nHpx+IDR2ICT8 VS00PC64Q2HmPphlyYAhhYO+PH RhYmxlIHdpZHRoPScxMDAlJyBz mUowBA0oTg9dIYJfZDMiiPgr cHNl (more content not included)... Normal [facility] 02-22-2022 Outside Records [id number] Normal [facility] Outside Records [id number]:127 [facility] Outside Records [id number]#[id number]:127 Normal [facility] C Urineon 02-19-2022 Bacteria identified Cx [...] Locations R1: This test was performed at: [facility], [address] [place] [address], [phone]- , , Normal [facility] Comment on above: Performed By: #### 1 [id number], [id number] #### [facility] [address] [place] [address] XR Chest 2 Viewson XR Chest 2 [...] Hassan M.D. Transcribed by: SANDY Technologist: PABLO Martin [facility] Auto Diffon 02-17-2022 Basophils/100 WBC (Bld) 0.6 % Normal 0.0-2.0 [facility] Comment on above: Order Comment: Order Added by Discern Expert. Performed By: #### 2 785434, 3671952, 99361668, 79833339, 4940266 ####[facility] [address] [place] [address] Basophils/Leukocytes Auto (Bld) [Pure # fraction] 0.0 E9/L Normal 0.0-0.2 [facility] Comment on above: Order Comment: Order Added by Discern Expert. Performed By: #### 2 125404, 0887828, 08644578, 40710367, 6883480 ####[facility] [address] [place] [address] Eosinophils/100 WBC (Bld) 0.2 % Normal 0.0-8.0 [facility] Comment on above: Order Comment: Order Added by Discern Expert. Performed By: #### 2 900434, 0364004, 58181873, 14422506, 6233646 ####[address] [place] [address] Eosinophils/Leukocytes Auto (Bld) [Pure # fraction] 0.0 E9/L Normal 0.0-0.5 [facility] Comment on above: Order Comment: Order Added by Mary Expert. Performed By: #### 2 822479, 8341558, 67762375, 97537618, 1445913 ####[address] [place] [address] Lymphocytes/100 WBC (Bld) 9.6 % Low 14.0-50.0 [facility] Comment on above: Order Comment: Order Added by Mary Expert. Performed By: #### 2 486221, 8796704, 16031458, 61310815, 5689932 ####[address] [address] Lymphocytes/Leukocytes Auto (Bld) [Pure # fraction] 0.7 E9/L Low 1.0-4.0 [facility] Comment on above: Order Comment: Order Added by Mary Expert. Performed By: #### 2 361993, 5302567, 86770723, 31603406, 2996797 ####[address] [address] Monocytes/100 WBC (Bld) 7.0 % Normal 4.0-14.0 [facility] Comment on above: Order Comment: Order Added by Mary Expert. Performed By: #### 2 897669, 0645690, 12305607, 50800030, 2891649 ####[address] [place] [address] Monocytes/Leukocytes Auto (Bld) [Pure # fraction] 0.5 E9/L Normal 0.2-1.0 [facility] Comment on above: Order Comment: Order Added by Mary Expert. Performed By: #### 2 272808, 3867487, 44272799, 26605861, 8632385 ####[facility] [address] [place] [address] Neutrophils/100 WBC (Bld) 82.6 % High 36.0-75.0 [facility] Comment on above: Order Comment: Order Added by Discern Expert. Performed By: #### 2 962930, 1585318, 32518181, 21359163, 8793700 ####[facility] [address] [place] [address] Neutrophils/Leukocytes Auto (Bld) [Pure # fraction] 6.3 E9/L Normal 2.0-7.5 [facility] Comment on above: Order Comment: Order Added by Discern Expert. Performed By: #### 2 079842, 8803544, 76665630, 31251737, 5591395 ####[facility] [address] [place] [address] BMPon 02-17-2022 Anion gap [Moles/Vol] 11 mmol/L Normal 6-16 [facility] Comment on above: Performed By: #### 2 079909, 2373849, 53977846, 44508431, 5340176 ####[address] [place] [address] Calcium [Mass/Vol] 9.3 mg/dL Normal 8.9-11.1 [facility] Comment on above: Performed By: #### 2 978271, 2228696, 46775253, 98730048, 5996190 ####[facility] [address] [place] [address] Chloride [Moles/Vol] 104 mmol/L Normal 101-111 [facility] Comment on above: Performed By: #### 2 360120, 2828167, 10797381, 15315212, 3916510 ####[facility] [address] [place] [address] CO2 [Moles/Vol] 27 mmol/L Normal 21-31 [facility] Comment on above: Performed By: #### 2 217574, 2937519, 00805678, 92242848, 1199525 ####[facility] [address] [place] [address] Creatinine [Mass/Vol] 1.4 mg/dL High 0.5-1.3 [facility] Comment on above: Performed By: #### 2 012781, 5316279, 32372280, 40364645, 1603298 ####[facility] [address] [place] [address] Glucose [Mass/Vol] 144 mg/dL Normal 55-199 [facility] Comment on above: Result Comment: If t his glucose result represents a fasting glucose, interpretation should refer to the following reference range: 55-99 mg/dL Performed By: #### 2 955515, 5525807, 69114921, 33776681, 4104864 ####[facility] [address] [place] [address] Potassium [Moles/Vol] 3.4 mmol/L Low 3.5-5.3 [facility] Comment on above: Performed By: #### 2 289110, 1011719, 11064947, 77034458, 6067974 ####[facility] [address] [place] [address] Sodium [Moles/Vol] 139 mmol/L Normal 135-145 [facility] Comment on above: Performed By: #### 2 608499, 7961689, 53785449, 32581166, 5791426 ####[facility] [address] [place] [address] Urea nitrogen [Mass/Vol] 24 mg/dL High 5-21 [facility] Comment on above: Performed By: #### 2 048470, 8909372, 99035972, 16862982, 5386686 ####[facility] [address] [place] [address] Urea nitrogen/Creatinine [Mass ratio] 17 No Units Normal 10-20 [facility] Comment on above: Performed By: #### 2 672320, 5649772, 25545425, 81433467, 1949297 ####[facility] [address] [place] [address] CBC w/ Auto Diffon Erythrocyte distribution width (RBC) [Ratio] 15.2 % High 10.9-14.2 [facility] Comment on above: Performed By: #### 2 945143, 7877742, 82614741, 16930012, 4860211 ####[address] [place] [address] Hematocrit (Bld) [Volume fraction] 35.8 % Low 37.7-49.0 [facility] Comment on above: Performed By: #### 2 664400, 1825344, 77119545, 23252109, 4648729 ####[address] [address] Hemoglobin (Bld) [Mass/Vol] 11.7 g/dL Low 13.5-17.5 [facility] Comment on above: Performed By: #### 2 500846, 6980331, 25562417, 44596920, 2524287 ####[address] [address] MCH (RBC) [Entitic mass] 29.1 pg Normal 27.0-34.0 [facility] Comment on above: Performed By: #### 2 305129, 3530816, 13627881, 03093123, 3187805 ####[address] [address] MCHC (RBC) [Mass/Vol] 32.7 g/dL Normal 31.4-36.0 [facility] Comment on above: Performed By: #### 2 381245, 6318506, 89657592, 94994861, 5986121 ####[address] [address] MCV (RBC) [Entitic vol] 89.1 fL Normal 80.0-100.0 [facility] Comment on above: Performed By: #### 2 933745, 2517884, 02281260, 60459496, 3743071 ####[facility] [address] [place] [address] Platelet mean volume (Bld) [Entitic vol] 9.4 fL Normal 6.4-10.8 [facility] Comment on above: Performed By: #### 2 392317, 7644006, 74076656, 52944775, 6490946 ####[facility] [address] [place] [address] Platelets (Bld) [#/Vol] 185.0 E9/L Normal 150.0-500. 0 [facility] Comment on above: Performed By: #### 2 393398, 3459748, 42802584, 77363258, 3310421 ####[address] [place] [address] RBC (Bld) [#/Vol] 4.0 E12/L Low 4.3-5.9 [facility] Comment on above: Performed By: #### 2 026554, 7397991, 14798977, 54025698, 2340248 ####[address] [place] [address] WBC corrected for nucl RBC Auto (Bld) [#/Vol] 7.7 E9/L Normal 4.0-11.0 [facility] Comment on above: Performed By: #### 2 536103, 2935260, 58743155, 65837068, 2117663 ####[facility] [address] [place] [address] CHEMISTRYOrdered By: SYSTEM SYSTEM on 02-17-2022 Anion gap [Moles/Vol] 11 mmol/L Normal 6 - 16 mEq/L [facility] Calcium [Mass/Vol] 9.3 mg/dL Normal 8.9 - 11. 1 mg/dL [facility] Chloride [Moles/Vol] 104 mmol/L Normal 101 - 1 11 mmol/L [facility] CO2 [Moles/Vol] 27 mmol/L Normal 21 - 31 mmol/L [facility] Creatinine [Mass/Vol] 1.4 mg/dL High 0.5 - 1.3 mg/dL [facility] GFR/1.73 sq M.predicted among blacks MDRD (S/P/Bld) [Vol rate/Area] 59 mL/min/1.73 m2 Normal >=59mL/min /1.73 m2 [facility] Chem S GFR/1.73 sq M.predicted among non-blacks MDRD (S/P/Bld) [Vol rate/Area] 49 mL/min/1.73 m2 Low >=59mL/min /1.73 m2 [facility] Chem S Glucose [Mass/Vol] 144 mg/dL Normal 55 - 199 mg/dL [facility] Potassium [Moles/Vol] 3.4 mmol/L Low 3.5 - 5.3 mmol/L [facility] Sodium [Moles/Vol] 139 mmol/L Normal 135 - 145 mmol/L [facility] Urea nitrogen [Mass/Vol] 24 mg/dL High 5 - 21 mg/dL [facility] Remisol Urea nitrogen/Creatinine [Mass ratio] 17 mg/mg Normal 10 - 20 [facility] COAGULATIONOrdered By: Luis Enrique Duran on 02-17-2022 aPTT Coag (PPP) [Time] 31.0 s Normal 25.1 - 36.5 second(s) [facility] Auto Coag INR Coag (PPP) [Relative time] 1.3 {INR} Invalid Interpretation Code [facility] Auto Coag PT Coag (PPP) [Time] 15.5 s High 10.2 - 12.9 second(s) [facility] Auto Coag Consent for Treatmenton 01-21 Consent for Treatment [id number]#1.00CD:127 Normal [facility] HEMATOLOGYOrdered By: SYSTEM SYSTEM on 02-17-2022 [...] 89.1 fL Normal 80.0 - 100.0 fL [facility] HemeAutoSS Platelet mean volume (Bld) [Entitic vol] 9.4 fL Normal 6.4 - 10.8 fL [facility] HemeAutoSS Platelets (Bld) [#/Vol] 185.0 E9/L Normal 150.0 - 500.0 E9/L [facility] HemeAutoSS RBC (Bld) [#/Vol] 4.0 E12/L Low 4.3 - 5.9 E12/L [facility] HemeAutoSS WBC corrected for nucl RBC Auto (Bld) [#/Vol] 7.7 E9/L Normal 4.0 - 11.0 E9/L [facility] HemeAutoSS PT & PTTon 02-17-2022 aPTT Coag (PPP) [Time] 31.0 second(s) Normal 25.1-36.5 [facility] Comment on above: Result Comment: Hepa rin therapeutic range (represented by Anti-Factor Xa activity of 0.2 - 0.4 U/mL) corresponds to PTT of 56.6 - 109.0 sec. Performed By: #### 2 879175, 6354444, 78761114, 01511743, 2685665 ####[facility] [address] [place] [address] INR Coag (PPP) [Relative time] 1.3 {INR} Invalid Interpretation Code [facility] Comment on above: Result Comment: INR results are specifically intended to assess patients stabilized on long-term Anticoagulation therapy suggested INR?s ?Less Intensive Anticoagulation? 2.0 ? 3.0 Conventional Range 3.0 ? 4.5 Performed By: #### 2 109687, 0757695, 35191937, 46361478, 0018699 ####[facility] [address] [place] [address] PT Coag (PPP) [Time] 15.5 second(s) High 10.2-12.9 [facility] Comment on above: Performed By: #### 2 863570, 2773415, 31875880, 39613390, 9114216 ####[facility] [address] [place] [address] UA With Cult Reflexon 2021 Bacteria LM Ql (Urine sed) SEE COMMENT Invalid Interpretation Code [facility] Comment on above: Result Comment: POSS IBLY PRESENT BUT OBSCURED BY COPIOUS AMOUNT OF RBCS Performed By: #### 1 0908311, 2754270 #### [facility] [address] [place] [address] Bilirubin Ql (U) Negative Normal Negative [facility] Comment on above: Performed By: #### 1 8311277, 1251050 #### [facility] [address] [place] [address] Clarity (U) CLOUDY Abnormal Clear [facility] Comment on above: Performed By: #### 1 5487933, 5211976 #### [facility] [address] [place] [address] Color (U) RED Abnormal Yellow [facility] Comment on above: Performed By: #### 1 3874267, 5164231 #### [facility] [address] [place] [address] Epithelial cells.squamous LM.HPF (Urine sed) [#/Area] See Comment Normal 0-2 [facility] Comment on above: Result Comment: POSS IBLY PRESENT BUT OBSCURED BY COPIOUS AMOUNT OF RBCS Performed By: #### 1 8812330, 5089921 #### [facility] [address] [place] [address] Glucose Test strip (U) [Mass/Vol] Negative Normal Negative [facility] Comment on above: Performed By: #### 1 6833546, 7021289 #### [facility] [address] [place] [address] Hemoglobin Ql (U) 3+ Abnormal Negative [facility] Comment on above: Performed By: #### 1 0167669, 4373406 #### [facility] [address] [place] [address] Ketones (U) [Mass/Vol] TRACE Invalid Interpretation Code Negative [facility] Comment on above: Performed By: #### 1 1289775, 0512700 #### [facility] [address] [place] [address] [place].plasma/[place] .RBC (Bld) [Mass ratio] >75 Abnormal 0-3 [facility] Comment on above: Performed By: #### 1 1496568, 1935670 #### [facility] [address] [place] [address] Nitrite Ql (U) Positive Abnormal Negative [facility] Comment on above: Performed By: #### 1 0219592, 6691794 #### [facility] [address] [place] [address] pH (U) 7.0 [pH] Invalid Interpretation Code 5.0-9.0 [facility] Comment on above: Performed By: #### 1 3173204, 2511712 #### [facility] [address] [place] [address] Protein (U) [Mass/Vol] 3+ Abnormal Negative [facility] Comment on above: Performed By: #### 1 2190504, 0007902 #### [facility] [address] [place] [address] Specific gravity (U) [Rel density] 1.015 Invalid Interpretation Code 1.005-1.03 0 [facility] Comment on above: Performed By: #### 1 6777143, 0191996 #### [facility] [address] [place] [address] Type of Urine collection method Clean Catch Normal [facility] Comment on above: Performed By: #### 1 2740728, 5111717 #### [facility] [address] [place] [address] Urobilinogen Qn (U) 1.0 {Terry'U}/dL Normal 0.0-1.0 [facility] Comment on above: Performed By: #### 1 0302931, 0938074 #### [facility] [address] [place] [address] WBC Auto Ql (U) 1+ Abnormal Negative [facility] Comment on above: Performed By: #### 1 6167106, 0550969 #### [facility] [address] [place] [address] WBC LM.HPF (Urine sed) [#/Area] See Comment Normal 0-5 [facility] Comment on above: Result Comment: POSS IBLY PRESENT BUT OBSCURED BY COPIOUS AMOUNT OF RBCS Performed By: #### 1 6301736, 2640590 #### [facility] [address] [place] [address] URINALYSISOrdered By: Luis Enrique wiley on 02-17-2022 [...] Interpretation Code Negative [facility] UA Auto SS [place].plasma/[place] .RBC (Bld) [Mass ratio] >75 /HPF Invalid Interpretation Code 0-3/HPF [facility] UA Auto SS Nitrite Ql (U) Positive *ABN* (02/17/22 2:09 PM) Invalid Interpretation Code Negative [facility] UA Auto SS pH (U) 7.0 *NA* (02/17/22 2:09 PM) Invalid Interpretation Code 5.0 - 9.0 [facility] UA Auto SS Protein (U) [Mass/Vol] 3+ *ABN* (02/17/22 2:09 PM) Invalid Interpretation Code Negative [facility] UA Auto SS Specific gravity (U) [Rel density] 1.015 *NA* (02/17/22 2:09 PM) Invalid Interpretation Code 1.005 - 1.030 [facility] UA Auto SS UA Spec Desc Clean Catch (02/17/22 2:09 PM) Normal [facility] UA Auto SS Urobilinogen Qn (U) 1.4092698 {Terry'U}/dL Normal 0.0 - 1.0 EU/dL [facility] UA Auto SS WBC Auto Ql (U) 1+ *ABN* (02/17/22 2:09 PM) Invalid Interpretation Code Negative [facility] UA Auto SS WBC LM.HPF (Urine sed) [#/Area] See Comment 3 (02/17/22 2:09 PM) Normal 0-5 [facility] UA Auto SS Comment on above: Result Comment: POSS IBLY PRESENT BUT OBSCURED BY COPIOUS AMOUNT OF RBCS eGFRon 02-17-2022 GFR/1.73 sq M.predicted among blacks MDRD (S/P/Bld) [Vol rate/Area] 59 mL/min/1.73 m2 Normal >=59 [facility] Comment on above: Order Comment: Order added by Discern Expert. Result Comment: eGFR is race adjusted. AA=. Performed By: #### 2 617268, 2442317, 15931371, 74146620, 8672714 ####[facility] [address] [place] [address] GFR/1.73 sq M.predicted among non-blacks MDRD (S/P/Bld) [Vol rate/Area] 49 mL/min/1.73 m2 Low >=59 [facility] Comment on above: Order Comment: Order added by Discern Expert. Result Comment: Sheet Writer swathi kidney disease could be indicated at eGFR's of less than 60 mL/min/1.73m2. Kidney failure is indicated at less than 15 mL/min/1.73m2. Performed By: #### 2 935489, 4274519, 51922436, 06778632, 0875124 ####[facility] [address] [place] [address] XR Spine Lumbar 4+ Views*on 02-10-2022 XR [...] by JACKLYN KOO on 02/11/2022 0917 Normal [facility] Transition Of Care Specialist Ambulatory Visit Summaryon 0 02-01-2022 Ambulatory [...] infections. ? (more content not included)... Normal [facility] Patient Educationon 02-02-20 Patient Education Oncology Bladder [...] Follow these instructions at home: ? Take fjvk-zim-mcrroxc and prescription medicines only as told by [...] important. Where to find more information ? [employer]: www.cancer.org ? National [employer] (NCI): www.cancer.gov Contact a health care provider [...] 08/09/2004 Document Revised: 07/20/2018 Document Reviewed: 07/11/2017 [employer] Patient Education ? 2019 [employer] 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 He had a TUR of his bladder tumor on 01/13/2022. Is here today for his first postop visit. HPI Staff Taurus is here today for a 2 week [...] q12hr, # 30 tab(s), Refills(s) 0, Pharmacy: [id number] Urology Procedure (more content not included)... Normal [facility] Comment on above: Result Comment: Elec tronically Signed By: Autumn Molina MD, Yoko Hair\.br\Date and Time Signed: 02/01/22 11:54 EDT\.br\Electronically Co-Signed By: Jolly Justice\.br\Date and Time Co-Signed: 02/01/22 11:50 EDT Operative Reporton 2 Operative Report [id number]#1.00CD:127 [facility] Coding Summary.on 01-25-2022 Coding Summary. CD:[id number] Gh0bWw +PGhlYWQ+KN9PDAWhI94ayKCvx T3TE7lUDW0ADMWRYVQVUB5SQZ3 jhOV4MGvnN8ShkiCg ZgsmkFHkEE40JUh8UAA0zCowSZ rjqQ3pzFEpE2f8OyFkYT20bM75 GEnrKOAlBoX8ZeOdikjsrKAg T8lqJiIdnNQxEyq+PHRhYmxlIH yiUDRgXLuvCMDdNoBuiDhjHR3x Gr9gRIBjAYNtwWiyyFOeIwEe m7wwQATwQWxmLX1tsKrkN9LhuG C4QMDcd1w9Gm78cJN+PHRkIHN0 uZrjBJtxj359EeElm5lfCJK9 nVOoBMqpZLP4B76zr1T1ARHrOQ XkXLU1kIA1cF0ezTescshtY7Li gGXbTeK1HUW9xOQemG0bdRfx pbbflS0tWfr+R24FSZ8ODNAIZN 2QBld5A6GeSudnbUU+MW86SALj EX97vSWuqNJoq0klhNk0VtXy DCPsKNH8hDboMXycb9OjSQSlS4 6zeAUus2P9WFJdhNtpuRNjYhWm bGQ8pW5lAGbzgbatj0nflkip Ouobu7fyin23wR15J94hNDujOD FnRSV0LYEnDOWgdQzlpt0eaS4m Ii8+VMhpf7poh4pnpTf2NnNy SGRuxaXsgDcoSOA5y3ZpJz66T4 FcuUuen1WiEyt8ct79sXSsp1U1 uCV7ZKvhPMDbpB8mDLrmYtT6 ZDLmXgQnqD82nFSdPUyqKv0kmU wfnSyhND6oPGUsrbmgZRZwdT0p FCPzmFObnKbpMJ0dRHQwkcly f519IsQpPGV5KDZtzAAgO3HsgI 4kXqCvDADiEMOqA8VjpHFuNHtn V756TNyeDuR6GZDtghLnF5Wz MTLzbIgtJhA2r6L9Lm3Op9Xegm kmXBT5DBizMOS5MkA9FnTwYbD1 A1NoMxe9ZNDngWmsWU8wA8Ti HYPjsyrbsxprbMW3SYRaSUZwxY 92fLQmZWejPh7am8C7v353SEEy YPLkpO31Wh6qiKtmNCJqgFED vF5eaekvb3oreydwAkVuYMUcRV v0YLq4XUXhgFayCoCsXSE0FmL0 DOJ2vNMcqQ4jfIrotdjgkN7h Oyc+M47ncE5mHKX9DBU6gnszUW GlcmOiUY30ZH67B2CfQhrtkLIj bGU+MFUjakOdbKoyDT9eQuGr d9vlq1IoGExvG7NiMAGsBYvqKq u6WJWnTZQ7xIM2kL2vMZIfPOfx k0Q6zTM0T3JjwkMrnu9tc6nx ZAHdMQhiC88xvXExy5D3MBUauR J5SFLmfEveXjYbkS19Xrr+PGNv uDsdx8KdUixjk8olw3dejDd3 XeJlGACmvpSrlBarOWP8u0VoYe 10H18lSKgnQODzEKFhAQWrSSPd pZpphi4qkI3bIx8+PGNvbCB3 sOZ6bY0kKFVpMtC6YPjdG215Zx NomEYmWzxwn6bfu5ikxNa6DpCl XZRpifPnoRryGRR1r5LqSp91 M31sHRedIWKzZCHqNJXnHCNwcB dlzo8vtC5gTu7+ZW3hs8kkzn17 gL26rMT+ZRDbVLB8oEqoALrf NWMolZ7wCIsmToH1DFGfNkHowH 58mRSzGSwyWx5iqWpsiTbxYQ7v NPDczbmkn905HnOzk7ktSTNk oLLpYGccUHR0Y72bs4X6ICDdGY JwFUO1fQD4hH1ywNrzbwdzhQCr cVrkloSxaTlpKXjjOAeqT444 IHRvcDsnPlBhdGllbnQgTmFtZT p1L6QoGhg7GJFnwOvmDN5lbYVj JIpvCs6ntVxguFzeCW9pHGWd soewe078VlPkn0iwKTFniSJkMQ wpISR9R06tg8U0YSFkGNXxOIP9 rBO5oD5ajXgxepqlbKAlcCqz obEadOfkVOpfEFsjO441FEAofD xeDxMwaeGnVFEvsXN6IH11IH55 tYMxj2R2cAP1C6XaPRKtzqgb kakdrZG0CCNiJESobW62Ds8toL pcRr2xXQEsIZW0ULCzfZKrY4Hw fL4qQpGlZRCtTOEgQ2GpwMTg YUdvW567XYylBaS4OCDohoGeE7 VsAIIrpOkeCrC2t5W8Tm5ZW0R4 DF45FT28zCKmd7V0eEM9S4Xi QQXzrhvpvmehyYW4KGRjORNujH 01Sp8rxDfpCd0mLAZyXCB4IGPh fEYdN9QncT8vGkSaCOUkSQTv U7GqpEIkSNgvR934BUejQvN6AF TqxeDcL4XjPMQrlPoeHyY9n9Z4 Mv4PPFl0SL46JI09rEOgk1F7 oUA9U1PuJBZsqsklainfxBC4AH XuHXAuoT79Zk8ufNzgRd3xOLPy FFQ3NLSteIFfT3NktZ3oJsWh LDKnLSMzU1LkrHRySNkbP550YM anNcS8CIYnipTmK5VqQQLosOmc CgE8a0G0Af2GQBLvVN82YEY6 cFB2ZM69EH38J6KtMfnmmNVfnN U+PHRhYmxlIHdpZHRoPScxMDAl FmXqnVvhEW8xCi4bIFBfGXSn cXsjqKFfNjXhk3ibPVZpDYnsGK 6wdXfvD4ZymOA2VZKco3i9Tr97 C53hW8MhhVO+NZBqxSX4yBA4 iP6nJpDdNoZ0XWneX365XbUcqJ DzQctyp1ktv5zegOk7GrX6BZCy okSbuVubPMF1v7YoCr42I23n IHdpZHRoPSIxNSUiIHZhbGlnbj 8cxA2qOv8+UVCchMH4cIW8vC2g JtYeMaK9JNscT356SfTauURb Hqbkv5vev1qdbIy9AiAfJDDcsu HzwZfaPBO3e6ZyBu48U0RfoLbu b7OiAfl1fd77iHIpl6B7mET3 X1ToPXZulxgyoRNonLifTF3hIA OumhmzMPXmgX3yULEpJ0d8WpMn DyD3NDbtN9AvzoQ8SUCjcQJj CGgmIQW5V05pw0V8OARaPRJwWX Z7lRW3pZ5jbLbuwguteZOhqWti uoUurIygGUqtPTlwK204CUQn nAauTSSpsG0uZAKbwIBimNfqUH 6tPHUmmdxlJlLJK55TSflnP3fQ YniHAzZWRN32YY19xIRfb7L2 wAS0A2PuLJHvvtorchagrWA4YX UyPWGtnF18wMFzOIkyHw8cc4R3 z034QEZfKZGudS89Ft8ggTom VTYahNKCiQ2gqidrj7msfzifRw VlJWKtAIr7HAo7WUVuaQsgPvCk AVK3MtK8JKZ6xAHskH8fmHbr thdjbM7aEwd+OCNnPVYdWRd4CG wvdGQ+XNLuHOE3iUnpSKfkMSIy vL8tLNIkB3g7PbVmDgH8IHyj M2EtJRHwzosqVo13iV1hYvMgBw R0SXmkB8MnfeJ0CPRbhHIfPWow KYF2R78dl5L3JAKvNGOoXCD2 fTN3bN9jgXoxnrgyhJSwkDaeut QzfMjwAPrqHKnuE397CIFjeGva Iwk9SZkoPDCaVP99FZ40kXRo r0I7qPN0F5BwGLCovwuufcobgA X8AGQaVRYgoZ83mYZjQWhmKg7l a9E3c901ZSVwLYEpeL23Hg5y qPoiJVHetWFLmU6grmuqs9chxq paMkRwDJSuZNq8FTm4TLHdbVlv BvBpOWC3DjZ2RHY6aBOwaK0d tOpcfwjlyE6cLoi+TWFsZTwvdG Q+XDHvIGT7bJpyOKalXWGzbH4i EOQpX0f8YzHvVaG5DBlmH7Ti GSCpkghrKk68uF6gWwHeUlV5ZK quJ4HllcI0PAQemWCbSOstVKV1 J54zg0S0SUBaSPNjOJY0bRL4 fY6vnJqgmwbvqCZvrYlxlfVzuU izOEkyDUekJ916AZDywOmiXsxf YxZRuv1yWA5sTgmngZX+PC90 oo21N3UlMjfdGej5XVQpCJG4zO S9hC2mJFRnDQezt0C7pVV0X9Te waWpfm5pz7hnTWXoBDhgZ32c hJQhw1T8UVWtyNB9XCFnhYsuVi LttC56Vir+OPXmhWibg2TtGuxb j8qdc0lniBf8UeUeYGOilrTe oGgeKTJ3p6AlHm67I57gLXxbXT NoXWLpQEZbEFZxxVyjqb7wrD9p Ii8+PZTfnSU1yVQ5zD6iHiMi VkX2BEitN427PkCygJCdEjllo9 oup3htqNp2PjAjBHCijcJckRls QNT4p8CwKe47Q8HshKmxv5Ev Rhb4tb84bWKcy8Z7aOU7P3CgXI CdxpyhvBBhrPukRU9jWGSjylwe QDIsvN4qARLmQ4d5WdIlJpT5 OIctN0WveqJ0DZIisOApZNDzhF PZfM0zcngrp2kdmpomOgGcSNHe AAt2THt7LDDruEkjYgMiQES9 QkZ7HGE4rURakK6jpOwwcobhyM 9wOyc+EUw7h1rfbEIxXH0ywYI4 FC93IK02zYTzz6J0aRD5V8Mv CGLchwrlxurczVV9VMWiXCYknD 22Li3bjDigVr2sUFTbQWR5JBRd fGRjA0VmtP9vIoZrMIJxFGYn Z9OjtRIjDJmlC340TAshUrP9BS ZdjqLvJ1QlPWZpzPoyXsK4a4D6 Po0IBS06PN05ZZ02pUIkh6V3 bUL1K0AxHZMxrinwpuutwJM9YS BbNMGxzR76Ww2zoDzjAt6fIMFz GSG6RHDmfLMwN0BkeF3eWpVd ROZsVYOwU3GhyXLiTYmpG005FH ovTwH3RELswiBvE3FzWOTivKpe LnZ0y7M9Ao0KRy34NR10RT58 pWFlo0M4cUR8F8IiUMYvaztvgk sdlQJ6BDPxGMUzjV62Yv6ggTwp Xm4zAAXpABR3HELjeCTeF0Ms zT8iHhSoMLKzDUAwD2LmyIUrTE meY154XFjwMiX2WFUifaHfM3Wo XOXupAinKwS0o3S6Uj3QKWju bwn4K5KjBdkpuXX+KB71OZGuKM 08eZSodLTsm7iamDb6CwZeFQRx YBK8mKtyYXvlh1CcYMMoQ12e bGFw (more content not included)... Normal [facility] Reminderson 01-24-2022 Reminders - From: Miller Shirley MA To: EU - Clinical; Sent: 01/21/2022 14:39:52 EDT Show up: 01/24/2022 08:00:00 EDT Subject: Ambulatory Reminder Reminder/Recall urine culture addressed. NICK Normal [facility] C Urineon 01-23-2022 Bacteria identified Cx Nom (U) Microbiology PROCEDURE: Urine Culture [R1] SOURCE: U Random BODY SITE: COLLECTED DATE/TIME: 01/21/2022 14:36 EDT RECEIVED DATE/TIME: 01/21/2022 18:12 EDT START DATE/TIME: 01/21/2022 18:12 EDT FREE TEXT SOURCE: MASHA LEY PA-C, PA-C, JENNIFER E FINAL REPORTS Final Report [] Verified Date/Time: 01/23/2022 10:37 EDT <10,000 cfu/ml Mixed skin contaminants Performing Locations R1: This test was performed at: [facility], [address] [place] [address], [phone] , [place], Normal [facility] Comment on above: Performed By: #### [id number] ####[facility] [id number] [place] [address] Ambulatory Visit Summaryon 0 01-21-2022 Ambulatory Visit Summary TAURUS GARCIA :1945 Visit Date:01/21/2022 Ambulatory Visit Instructions Your Diagnosis Urgency of urination Tests Performed Urnls Dip Stick Auto w/o Microscopy POC 19391 Your Care Team Attending Physician - Autumn Molina MD, Yoko Hair Primary Care Physician - [id number] BRIDEGS, KOMAL Hamlin This Is Your Medications List [...] MD, Yoko Hair Where: [facility] Pathology Noteon 01-19-2022 Pathology Note [id number]:127 Normal [facility] Ambulatory Visit Summaryon 0 01-18-2022 Ambulatory [...] sleep apnea, adult Pulmonary embolism Radiculopathy Normal [facility] Lab Reportson 01-11-2022 Lab Reports [id number]:127 Normal [facility] Lab Reportson 01-10-2022 Lab Reports [id number]:127 Normal [facility] PROF CHEM 8 ([facility] MET)on Anion gap [Moles/Vol] 12.8 mmol/L Normal [facility] Comment on above: Performed By: #### B MP #### [facility] [address] [place] [address] Dr. Chao Garcia Calcium [Mass/Vol] 9.4 mg/dL Normal 8.5-10.1 [facility] Comment on above: Performed By: #### B MP #### [facility] [address] [address] [address] Chao Garcia Chloride [Moles/Vol] 107 mmol/L Normal 98-107 [facility] Comment on above: Performed By: #### B MP #### [facility] [address] [address] [address] Chao Garcia CO2 [Moles/Vol] 27.6 mmol/L Normal 21.0-32.0 [facility] Comment on above: Performed By: #### B MP #### [facility] [address] [address] [address] Chao Garcia Creatinine [Mass/Vol] 1.47 mg/dL Critically high 0.70-1.30 [facility] Comment on above: Performed By: #### B MP #### [facility] [address] [address] [address] Chao Garcia EGFR-AF ARGENTINE 56 mL/min/1.73m2 Critically low >=60 [facility] Comment on above: Performed By: #### B MP #### [facility] [address] [address] [address] Chao Garcia EGFR-NON AF ARGENTINE 46 mL/min/1.73m2 Critically low >=60 [facility] Comment on above: Performed By: #### B MP #### [facility] [address] [address] [address] Chao Garcia Glucose [Mass/Vol] 142 mg/dL Critically high 74-106 [facility] Comment on above: Performed By: #### B MP #### [facility] [address] [address] [address] Chao Garcia Potassium [Moles/Vol] 3.4 mmol/L Critically low 3.5-5.1 [facility] Comment on above: Performed By: #### B MP #### [facility] [address] [address] [address] Chao Garcia Sodium [Moles/Vol] 144 mmol/L Normal 136-145 [facility] Comment on above: Performed By: #### B MP #### [facility] [address] [address] [address] Chao Garcia Urea nitrogen [Mass/Vol] 33.0 mg/dL Critically high 7.0-18.0 [facility] Comment on above: Performed By: #### B MP #### [facility] [address] [address] [address] Chao Garcia Urea nitrogen/Creatinine [Mass ratio] 22.4 mg/mg Normal [facility] Comment on above: Performed By: #### B MP #### [facility] [address] [address] [address] Chao Garcia Consent for Procedure/Surger yon 01-04-2022 Consent for Procedure/Surgery [id number]:12 7 Normal [facility] Ambulatory Visit Summaryon 0 12-27-2021 Ambulatory Visit Summary TAURUS GARCIA :1945 Visit Date:12/27/2021 Ambulatory Visit Instructions Your Diagnosis Gross hematuria BPH (benign prostatic hyperplasia) Bladder mass Your Care Team Attending Physician - Autumn Molina MD, Yoko Hair Primary Care Physician - KOMAL NGUYEN MD This Is Your Medications List Contact prescribing [...] after TURBT Where: [facility] [address] [place] [address]- Medications What How Much When Instructions Unchanged [...] serious c (more content not included)... Normal [facility] Patient Educationon 12-28-19 Patient Education Urology [...] these instructions at home: Medicines ? Take tvqm-wlb-rqjqvmu and prescription medicines only as told by [...] the blood stops without treatment. ? Take yhmo-lgh-ksmewbu and prescription medicines only as told by your health care provider. ? Drink enough fluid to keep your urine clear or pale yellow. This information is not intended to replace advice given to you by your health care provider. Make sure you discuss any questions you have with your health care provider. Document Released: 08/07/2006 Document Revised: 01/01/2020 Document Reviewed: 09/09/2017 [employer] Patient Education ? 2019 [employer] [facility] Urology Office/Clinic Noteon 12-27-2021 Urology Office/Clinic Note [...] urine The Urethra was dilated to: _ Angolan with sounds. Specimens Removed: Voided specimen sent [...] on delayed axial image 228. Ordered: Cystourethroscopy [id number] Urology Procedure Order 2. Gross hematuria (R31.0: [...] Full informe (more content not included)... Normal [facility] Comment on above: Result Comment: Elec tronically Signed By: Autumn Molina MD, Yoko Hair\.br\Date and Time Signed: 12/27/21 13:27 EDT\.br\Electronically Co-Signed By: Elvin Hawthorne\.br\Date and Time Co-Signed: 12/27/21 13:19 EDT Lab Reportson 12-16-2021 Lab Reports [id number]:127 Normal [facility] RAD - CT Reporton 12-16-2021 RAD - CT Report [id number]:127 Normal [facility] CREATININEon 12-15-2021 Creatinine [Mass/Vol] 1.52 mg/dL Critically high 0.70-1.30 [facility] Comment on above: Performed By: #### C RAFA #### [facility] [address] [address] [address] Chao Garcia EGFR-AF ARGENTINE 54 mL/min/1.73m2 Critically low >=60 [facility] Comment on above: Performed By: #### C RAFA #### [facility] [address] [address] [address] Chao Garcia EGFR-NON AF ARGENTINE 45 mL/min/1.73m2 Critically low >=60 [facility] Comment on above: Performed By: #### C RAFA #### [facility] [address] [address] [address] ABD/PELV W CONon [...] measuring 1.1 x 0.9 cm axial image 2028 URINARY BLADDER: No focal bladder masses measuring [...] JORDAN RUTLEDGE Date: 2021-12-15 13:10 Normal [facility] Formson 12-15-2021 Forms [id number]:127 Normal [facility] UroVysion Fish and Urine Cyt o ([facility])on 12-13-2021 UVFISH & UC Diagnosis Info Invalid Interpretation Code [facility] Comment on above: Result Comment: A:Ur [...] on: 12/13/2021 13:24:10 Performed By: #### 1 [id number] ####[facility] [id number] [place] [address] Patient Educationon 12-08-19 Patient Education Urology Hematuria, [...] these instructions at home: Medicines ? Take gmta-dpn-igpaoiu and prescription medicines only as told by [...] the blood stops without treatment. ? Take hnvq-hqe-mampqng and prescription medicines only as told by your health care provider. ? Drink enough fluid to keep your urine clear or pale yellow. This information is not intended to replace advice given to you by your health care provider. Make sure you discuss any questions you have with your health care provider. Document Released: 08/07/2006 Document Revised: 01/01/2020 Document Reviewed: 09/09/2017 [employer] Patient Education ? 2020 [employer] Normal [facility] UroVysion Fish and Urine Cyt o ([facility])on 12-07-2021 [facility] Method of Extraction Voided Normal [facility] Comment on above: Performed By: #### 1 [id number] ####[facility] [address] [place] [address] [facility] Number of Jars 1 Invalid Interpretation Code [facility] Comment on above: Performed By: #### 1 [id number] ####[facility] [address] [place] [address] [facility] Specimen Urine Normal [facility] Comment on above: Performed By: #### 1 [id number] ####[facility] [address] [place] [address] [facility] Type of Service Global Normal Fish er [facility] Comment on above: Performed By: #### 1 [id number] ####[facility] [address] [place] [address] Urology Office/Clinic Noteon 12-07-2021 Urology Office/Clinic Note [...] procedure, # 2 tab(s), Refills(s) 0, Pharmacy: [id number] Follow-up With When Contact Information Autumn Molina MD, Yoko Hair, [facility] [address], [place] [phone] Additional Instructions: Patient Education Hematuria, Adult I, Margaret Mitchell, personally scribed for Dr. Rizvi on 12/07/2021 10:01:53. . Documentation recorded by the scri (more content not included)... Normal [facility] Comment on above: Result Comment: Elec [...] By signing my name below, I, Joana Kaley POMPA,Scribmagdalena, attest that this documentation has been prepared under the direction and in the presence of Dr. Baltazar Hoover DO. Please bring all medicines, vitamins, and herbal [...] MG Oral TabletTake 1 tablet daily Pyridostigmine Golf 60 MG Oral TabletTAKE 1 TABLET 4 [...] Recorded: 31Aug2021 01:21PM Heart Rate74, L Radial Cqlxwdjq451, LUE, Sitting Yxujbfbwb63, LUE, Sitting Height5 ft 9 in Dzytae497 lb BMI Tihjcwimcq60.62 kg/m2 BSA Calculated2.58 Tobacco Useb) No Fall [...] Basophils (Bld) [#/Vol] 0.05 10*3/uL Normal 0.00-0.20 [facility] Comment on above: Performed By: #### C MP, LIPD, TSH, CBCAD, FT4 #### [facility] [address] [place], [place] [id number] Basophils/100 WBC (Bld) 0.7 % Normal [facility] Specialist Comment on above: Performed By: #### C MP, LIPD, TSH, CBCAD, FT4 #### [facility] [address], [place] [id number] Eosinophils (Bld) [#/Vol] 0.15 10*3/uL Normal 0.02-0.50 [facility] Special[facility] Comment on above: Performed By: #### C MP, LIPD, TSH, CBCAD, FT4 #### [facility] [address], [place] [id number] Eosinophils/100 WBC (Bld) 2.0 % Normal [facility] Comment on above: Performed By: #### C MP, LIPD, TSH, CBCAD, FT4 #### [facility] [address], [place] [id number] Erythrocyte distribution width (RBC) [Ratio] 14.6 % Normal 11.0-15.0 [facility] Specialist Comment on above: Performed By: #### C MP, LIPD, TSH, CBCAD, FT4 #### [facility] [address], [place] [id number] Hematocrit (Bld) [Volume fraction] 43.5 % Normal 38.5-50.0 [facility] Comment on above: Performed By: #### C MP, LIPD, TSH, CBCAD, FT4 #### [facility] [address], [place] [id number] Hemoglobin (Bld) [Mass/Vol] 13.8 g/dL Normal 13.0-17.1 [facility] Comment on above: Performed By: #### C MP, LIPD, TSH, CBCAD, FT4 #### [facility] [address], [place] [id number] Lymphocytes (Bld) [#/Vol] 2.5 10*3/uL Normal 0.9-3.9 [facility] Specialist Comment on above: Performed By: #### C MP, LIPD, TSH, CBCAD, FT4 #### [facility] [address], [place] [id number] Lymphocytes/100 WBC (Bld) 32.3 % Normal [facility] Comment on above: Performed By: #### C MP, LIPD, TSH, CBCAD, FT4 #### [facility] [address], [place] [id number] MCH (RBC) [Entitic mass] 30.3 pg Normal 27.0-33.0 [facility] Comment on above: Performed By: #### C MP, LIPD, TSH, CBCAD, FT4 #### [facility] [address], [place] [id number] MCHC (RBC) [Mass/Vol] 31.7 g/dL Low 32.0-36.0 [facility] Comment on above: Performed By: #### C MP, LIPD, TSH, CBCAD, FT4 #### [facility] [address], [place] [id number] MCV (RBC) [Entitic vol] 95 fL Normal 80-100 [facility] Comment on above: Performed By: #### C MP, LIPD, TSH, CBCAD, FT4 #### [facility] [address], [place] [id number] Monocytes (Bld) [#/Vol] 0.9 10*3/uL Normal 0.2-0.9 [facility] Comment on above: Performed By: #### C MP, LIPD, TSH, CBCAD, FT4 #### [facility] [address], [place] [id number] Monocytes/100 WBC (Bld) 11.5 % Normal [facility] Comment on above: Performed By: #### C MP, LIPD, TSH, CBCAD, FT4 #### [facility] [address], [place] [id number] Neutrophils (Bld) [#/Vol] 4.1 10*3/uL Normal 1.5-7.8 [facility] Comment on above: Performed By: #### C MP, LIPD, TSH, CBCAD, FT4 #### [facility] [address], [place] [id number] Neutrophils/100 WBC (Bld) 53.0 % Normal [facility] Comment on above: Performed By: #### C MP, LIPD, TSH, CBCAD, FT4 #### [facility] [address], [place] [id number] Platelet mean volume (Bld) [Entitic vol] 10.70 fL Normal 7.50-12.50 [facility] Specialist Comment on above: Performed By: #### C MP, LIPD, TSH, CBCAD, FT4 #### [facility] [address], [place] [id number] Platelets (Bld) [#/Vol] 208 10*3/uL Normal 140-400 [facility] Comment on above: Performed By: #### C MP, LIPD, TSH, CBCAD, FT4 #### [facility] [address], [place] [id number] RBC (Bld) [#/Vol] 4.56 10*6/uL Normal 4.20-5.80 [facility] Specialist Comment on above: Performed By: #### C MP, LIPD, TSH, CBCAD, FT4 #### [facility] [address], [place] [id number] RDW-SD 51.6 fL High 37.0-50.0 [facility] Comment on above: Performed By: #### C MP, LIPD, TSH, CBCAD, FT4 #### [facility] [address], [place] [id number] WBC (Bld) [#/Vol] 7.7 10*3/uL Normal 3.8-11.0 [facility] Comment on above: Performed By: #### C MP, LIPD, TSH, CBCAD, FT4 #### [facility] [address], [place] [id number] Comprehensive Metabolic Pane rc 08-18-2021 Albumin [Mass/Vol] 4.2 g/dL Normal 3.6-5.1 [facility] Comment on above: Performed By: #### C MP, LIPD, TSH, CBCAD, FT4 #### [facility] [address], [place] [id number] Albumin/Globulin [Mass ratio] 2.0 {ratio} Normal 1.0-2.5 [facility] Specialist Comment on above: Performed By: #### C MP, LIPD, TSH, CBCAD, FT4 #### [facility] [address], [place] [id number] ALP [Catalytic activity/Vol] 69 U/L Normal 40-129 [facility] Comment on above: Performed By: #### C MP, LIPD, TSH, CBCAD, FT4 #### [facility] [address], [place] [id number] ALT [Catalytic activity/Vol] 22 U/L Normal 9-46 [facility] Comment on above: Result Comment: 07/21 Female reference range changed. Performed By: #### C MP, LIPD, TSH, CBCAD, FT4 #### [facility] [address], [place] [id number] Anion gap [Moles/Vol] 18 mmol/L Normal 12-20 [facility] Comment on above: Result Comment: Effe ctive 08/26/2019 reference range changed. Performed By: #### C MP, LIPD, TSH, CBCAD, FT4 #### [facility] [address], [place] [id number] AST [Catalytic activity/Vol] 21 U/L Normal 10-40 [facility] Comment on above: Performed By: #### C MP, LIPD, TSH, CBCAD, FT4 #### [facility] [address], [place] [id number] Bilirubin [Mass/Vol] 0.60 mg/dL Normal 0.30-1.20 [facility] Comment on above: Performed By: #### C MP, LIPD, TSH, CBCAD, FT4 #### [facility] [address], [place] [id number] BUN/CREA 20 Ratio Normal 6-22 [facility] Comment on above: Performed By: #### C MP, LIPD, TSH, CBCAD, FT4 #### [facility] [address], [place] [id number] Calcium [Mass/Vol] 9.3 mg/dL Normal 8.6-10.2 [facility] [place] [facility] Comment on above: Performed By: #### C MP, LIPD, TSH, CBCAD, FT4 #### [facility] [address], [place] [id number] Chloride [Moles/Vol] 104 mmol/L Normal 98-107 [facility] Specialist Comment on above: Performed By: #### C MP, LIPD, TSH, CBCAD, FT4 #### [facility] [address], [place] [id number] CO2 [Moles/Vol] 25 mmol/L Normal 20-31 [facility] Specialist Comment on above: Performed By: #### C MP, LIPD, TSH, CBCAD, FT4 #### [facility] [address], [place] [id number] Creatinine [Mass/Vol] 1.2 mg/dL Normal 0.7-1.4 [facility] Comment on above: Performed By: #### C MP, LIPD, TSH, CBCAD, FT4 #### [facility] [address], [place] [id number] eGFRAA 72 mL/min/1.73m2 Normal >60 [facility] Specialist Comment on above: Performed By: #### C MP, LIPD, TSH, CBCAD, FT4 #### [facility] [address], [place] [id number] eGFRNAA 59 mL/min/1.73m2 Low >60 [facility] Specialist Comment on above: Performed By: #### C MP, LIPD, TSH, CBCAD, FT4 #### [facility] [address], [place] [id number] Globulin (S) [Mass/Vol] 2.1 g/dL Normal 1.9-3.7 [facility] Specialist Comment on above: Performed By: #### C MP, LIPD, TSH, CBCAD, FT4 #### [facility] [address], [place] [id number] Glucose [Mass/Vol] 132 mg/dL High 65-99 [place] Specialist Comment on above: Result Comment: For FASTING Glucose --- ADA reference ranges: Normal 65-99 mg/dl Prediabetes 100-125 Diabetes >/= 126 Performed By: #### C MP, LIPD, TSH, CBCAD, FT4 #### [facility] [address], [place] [id number] Potassium [Moles/Vol] 3.4 mmol/L Low 3.5-5.5 [facility] Specialist Comment on above: Performed By: #### C MP, LIPD, TSH, CBCAD, FT4 #### [facility] [address], [place] [id number] Protein [Mass/Vol] 6.3 g/dL Normal 6.1-8.1 Jena romero [place] [facility] Comment on above: Performed By: #### C MP, LIPD, TSH, CBCAD, FT4 #### [facility] [address], [place] [id number] Sodium [Moles/Vol] 144 mmol/L Normal 135-146 Jena romero [place] [facility] Comment on above: Performed By: #### C MP, LIPD, TSH, CBCAD, FT4 #### [facility] [address], [place] [id number] Urea nitrogen [Mass/Vol] 23 mg/dL Normal 7-25 [facility] Specialist Comment on above: Performed By: #### C MP, LIPD, TSH, CBCAD, FT4 #### [facility] [address], [place] [id number] Free T4on 08-18-2021 Free T4 [Mass/Vol] 1.26 ng/dL Normal 0.80-1.80 Jena romero [place] [facility] Comment on above: Performed By: #### C MP, LIPD, TSH, CBCAD, FT4 #### [facility] [address], [place] [id number] Lipid Panelon 08-18-2021 Cholesterol [Mass/Vol] 170 mg/dL Normal 125-200 [facility] Comment on above: Result Comment: Low risk < 200mg/dL Borderline risk 201-239 mg/dl High risk > or equal to 240 Performed By: #### C MP, LIPD, TSH, CBCAD, FT4 #### [facility] [address], [place] [id number] Cholesterol in HDL [Mass/Vol] 70 mg/dL Normal >40 [facility] Specialist Comment on above: Result Comment: High Cardiovascular Risk HDL <40 mg/dL Low Cardiovascular Risk HDL > or equal to 60 mg/dl Performed By: #### C MP, LIPD, TSH, CBCAD, FT4 #### [facility] [address], [place] [id number] Cholesterol in LDL [Mass/Vol] 78 mg/dL Normal [facility] Specialist Comment on above: Result Comment: LDL ATP III CLASSIFICATION LDL less than 100 mg/dl Optimal LDL 100-129 mg/dl Near or above optimal LDL 130-159 Borderline high LDL 160-189 High LDL greater than 189 mg/dl Very High Performed By: #### C MP, LIPD, TSH, CBCAD, FT4 #### [facility] [address], [place] [id number] Cholesterol in VLDL [Mass/Vol] 22 mg/dL Normal [facility] Comment on above: Performed By: #### C MP, LIPD, TSH, CBCAD, FT4 #### [facility] [address], [place] [id number] Cholesterol.total/Chol esterol in HDL [Mass ratio] 2 {ratio} Normal [facility] Specialist Comment on above: Performed By: #### C MP, LIPD, TSH, CBCAD, FT4 #### [facility] [address], [place] [id number] Triglyceride [Mass/Vol] 110 mg/dL Normal 30-150 [facility] Comment on above: Result Comment: TRIG ATPIII CLASSIFICATIONS TRIG less than 150 mg/dl Normal TRIG 150-199 mg/dl Borderline High TRIG 200-500 mg/dl High TRIG greather than 500 mg/dl Very High Performed By: #### C MP, LIPD, TSH, CBCAD, FT4 #### [facility] [address], [place] [id number] PSA SCREEN (MEDICARE)on 07-22 TPSA 1.270 ng/mL Normal <4.000 [facility] Specialist Comment on above: Result Comment: PSA Test Method: ECLIA/Racquel e 601 Performed By: #### P SA #### [facility] [address], [place] [id number] TSHon 08-18-2021 TSH 4.190 uIU/mL Normal 0.400-4.50 0 [facility] Comment on above: Performed By: #### C MP, LIPD, TSH, CBCAD, FT4 #### [facility] [address] [place], [place] [id number] Cov[facility]-19 PCR [facility]on 03-23 SARS-CoV-2 (COVID-19) RNA JAYDE+probe Ql (Unsp spec) Detected Critically abnormal NOT DETECTED [facility] Comment on above: Result Comment: This test is not yet approved or cleared by the [place] FDA. When there are no FDA-approved or cleared tests available, and other criteria are met, FDA can make tests available under an emergency access mechanism called an Emergency Use Authorization (EUA). The EUA for this test is supported by the Cd Reactor Operator Head of Health and Human Service's (HHS's) declaration [...] longer be used). Performed By: #### [facility] #### [facility] [address] [place], [place] [address] Jalyn Noble US JO ANN DOP LEG [...] left leg *Exam performed in accordance with AIUM practice guidelines- Peripheral venous ultrasound, November 14, 2009. Electronically authenticated by: JORDAN RUTLEDGE Date: 2021-02-09 16:35 Normal [facility] Vital Signs Date Time Vital Sign Value Performing Clinician Facility 02-12-2024 17:05-0400 Diastolic blood pressure 69 mm[Hg] II Komal Nguyen Work Phone: [facility] 02-12-2024 17:05-0400 Heart rate 53 /min II Komal Nguyen Work Phone: [facility] 02-12-2024 17:05-0400 Respiratory rate 22 /min II Komal Nguyen Work Phone: [facility] 02-12-2024 17:05-0400 SaO2% (BldA) [Mass fraction] 98 % II Komal Nguyen Work Phone: [facility] 02-12-2024 17:05-0400 Systolic blood pressure 156 mm[Hg] II Komal Nguyen Work Phone: [facility] 02-12-2024 13:33-0400 Body height 172.72 cm II Komalescobar Nguyen Work Phone: [facility] 02-12-2024 13:33-0400 Body temperature 98.1 [degF] II Komal Nguyen Work Phone: [facility] 02-12-2024 13:33-0400 Body weight 142.3 kg II Komalescobar Nguyen Work Phone: [facility] 10-05-2023 13:16-0500 Body height 177.8 cm Komal Nguyen MD Work Phone: [facility] 10-05-2023 13:16-0500 Body mass index (BMI) [Ratio] 45.2 kg/m2 Komal Nguyen MD Work Phone: [facility] 10-05-2023 13:16-0500 Body weight 142.88 kg Komal Nguyen MD Work Phone: [facility] 10-05-2023 13:16-0500 Diastolic blood pressure 82 mm[Hg] Komal Nguyen MD Work Phone: [facility] 10-05-2023 13:16-0500 Heart rate 58 /min Komal Nguyen MD Work Phone: [facility] 10-05-2023 13:16-0500 SaO2% (BldA) [Mass fraction] 96 % Komal Nguyen MD Work Phone: [facility] 10-05-2023 13:16-0500 Systolic blood pressure 134 mm[Hg] Komal Nguyen MD Work Phone: [facility] 09-20-2023 12:13-0500 Body height 172.7 cm Baltazar Hoover DO Work Phone: [facility] 09-20-2023 12:13-0500 Body mass index (BMI) [Ratio] 47.59 kg/m2 Baltazar Hoover DO Work Phone: [facility] 09-20-2023 12:13-0500 Body weight 141.98 kg Baltazar Hoover DO Work Phone: [facility] 09-20-2023 12:13-0500 Diastolic blood pressure 74 mm[Hg] Baltazar Hoover DO Work Phone: [facility] 09-20-2023 12:13-0500 Heart rate 53 /min Baltazar Hoover DO Work Phone: [facility] 09-20-2023 12:13-0500 Systolic blood pressure 130 mm[Hg] Baltazar Hoover DO Work Phone: [facility] 06-10-2023 05:00-0400 Body temperature 97.2 [degF] II Komal Nguyen Work Phone: [facility] 06-10-2023 05:00-0400 Diastolic blood pressure 70 mm[Hg] II Komal Nguyen Work Phone: [facility] 06-10-2023 05:00-0400 Heart rate 57 /min II Komal Nguyen Work Phone: [facility] 06-10-2023 05:00-0400 Respiratory rate 18 /min II Komal Nguyen Work Phone: [facility] 06-10-2023 05:00-0400 SaO2% (BldA) [Mass fraction] 95 % II Komal Nguyen Work Phone: [facility] 06-10-2023 05:00-0400 Systolic blood pressure 145 mm[Hg] II Komal Nguyen Work Phone: [facility] 06-06-2023 12:31-0400 Body height 172.72 cm II Komal Nguyen Work Phone: [facility] 06-04-2023 06:00-0400 Body weight 138.9 kg II Komal Nguyen Work Phone: [facility] 05-25-2023 00:00-0400 Inhaled oxygen flow rate 2 L/min II Komal Nguyen Work Phone: [facility] 05-21-2023 13:47-0400 Body temperature 98.4 [degF] II Komal Nguyen Work Phone: [facility] 05-21-2023 13:47-0400 Diastolic blood pressure 82 mm[Hg] II Komal Nguyen Work Phone: [facility] 05-21-2023 13:47-0400 Heart rate 60 /min II Komal Nguyen Work Phone: [facility] 05-21-2023 13:47-0400 Inhaled oxygen flow rate 2 L/min II Komal Nguyen Work Phone: [facility] 05-21-2023 13:47-0400 Respiratory rate 20 /min II Komal Nguyen Work Phone: [facility] 05-21-2023 13:47-0400 SaO2% (BldA) [Mass fraction] 94 % II Komal Nguyen Work Phone: [facility] 05-21-2023 13:47-0400 Systolic blood pressure 145 mm[Hg] II Komal Nguyen Work Phone: [facility] 05-21-2023 05:35-0400 Body weight 145 kg II Komal Nguyen Work Phone: [facility] 05-18-2023 12:18-0400 Body height 175.26 cm II Komal Nguyen Work Phone: [facility] 05-15-2023 18:00-0400 Inhaled oxygen concentration 4 % II Komal Nguyen Work Phone: [facility] 10-18-2022 08:30-0500 Body temperature 97.59 [degF] Honorio Vuong MD Work Phone: [employer] 10-18-2022 08:30-0500 Diastolic blood pressure 81 mm[Hg] Honorio Vuong MD Work Phone: [employer] 10-18-2022 08:30-0500 Heart rate 75 /min Honorio Vuong MD Work Phone: [employer] 10-18-2022 08:30-0500 Respiratory rate 20 /min Honorio Vuong MD Work Phone: [employer] 10-18-2022 08:30-0500 SaO2% (BldA) [Mass fraction] 95 % Honorio Vuong MD Work Phone: [employer] 10-18-2022 08:30-0500 Systolic blood pressure 150 mm[Hg] Honorio Vuong MD Work Phone: [employer] 10-17-2022 06:00-0500 Body mass index (BMI) [Ratio] 48.42 kg/m2 Honorio Vuong MD Work Phone: [employer] 10-17-2022 06:00-0500 Body weight 144.44 kg Honorio Vuong MD Work Phone: [employer] 10-15-2022 19:51-0500 Body height 172.7 cm Honorio Vuong MD Work Phone: [employer] 09-07-2022 11:23-0500 Body height 172.72 cm Melonie Rizvi EVENT COORDINATOR[employer] Work Phone: [facility] [facility] DO Work Phone: 09-07-2022 11:23-0500 Body mass index (BMI) [Ratio] 49.72 kg/m2 Melonie Rizvi EVENT [employer] Work Phone: [facility] 250 DO Work Phone: 09-07-2022 11:23-0500 Body surface area Derived from formula 2.52 m2 Melonie Rizvi EVENT CO[employer] Work Phone: [facility] [address] DO Work Phone: 09-07-2022 11:23-0500 Body weight 148.33 kg Melonie Rzivi EVENT [employer] Work Phone: [facility] 250 DO Work Phone: 09-07-2022 11:23-0500 Diastolic blood pressure 78 mm[Hg] Melonie Rizvi EVENT CO[employer] Work Phone: [facility] 250 DO Work Phone: 09-07-2022 11:23-0500 Heart rate 64 /min Melonie Rizvi EVENT [employer] Work Phone: [facility] [address] DO Work Phone: 09-07-2022 11:23-0500 Systolic blood pressure 122 mm[Hg] Melonie Rizvi EVENT [employer] Work Phone: [facility] [facility] DO Work Phone: 05-06-2022 12:45-0400 Body weight 148.19 kg Celso Peñaloza MD, PhD Work Phone: [facility] 05-06-2022 12:45-0400 Diastolic blood pressure 55 mm[Hg] Celso Peñaloza MD, PhD Work Phone: [facility] 05-06-2022 12:45-0400 Heart rate 67 /min Celso Peñaloza MD, PhD Work Phone: [facility] 05-06-2022 12:45-0400 Systolic blood pressure 132 mm[Hg] Celso Peñaloza MD, PhD Work Phone: [facility] 03-29-2022 11:04-0400 Blood Pressure Location Yoko Rizvi Jr. [facility] 03-29-2022 11:04-0400 Diastolic blood pressure 80 mm[Hg] Yoko Rizvi Jr. [facility] 03-29-2022 11:04-0400 Heart rate 108 /min Yoko Rizvi Jr. [facility] 03-29-2022 11:04-0400 Respiratory rate 16 /min Yoko Rizvi Jr. [facility] 03-29-2022 11:04-0400 Systolic blood pressure 126 mm[Hg] Yoko Rizvi Jr. [facility] 03-03-2022 12:59-0400 Blood Pressure Location Yoko Rizvi Jr. [facility] 03-03-2022 12:59-0400 Body temperature 97.88 [degF] Yoko Rizvi Jr. [facility] 03-03-2022 12:59-0400 BP/Pulse Patient Position Yoko Rizvi Jr. [facility] 03-03-2022 12:59-0400 Diastolic blood pressure 60 mm[Hg] Yoko Rizvi Jr. [facility] 03-03-2022 12:59-0400 Heart rate 62 /min Yoko Rizvi Jr. [facility] 03-03-2022 12:59-0400 Mean blood pressure 74 mm[Hg] Yoko Rizvi Jr. [facility] 03-03-2022 12:59-0400 Respiratory rate 16 /min Yoko Rizvi Jr. [facility] 03-03-2022 12:59-0400 SaO2% (BldA) [Mass fraction] 97 % Yoko Rizvi Jr. [facility] 03-03-2022 12:59-0400 Systolic blood pressure 100 mm[Hg] Yoko Rizvi Jr. [facility] 03-03-2022 12:04-0400 Body temperature 98.06 [degF] Yoko Rizvi Jr. [facility] 03-03-2022 12:04-0400 Diastolic blood pressure 60 mm[Hg] Yoko Rizvi Jr. [facility] 03-03-2022 12:04-0400 Heart rate 63 /min Yoko Rizvi Jr. [facility] 03-03-2022 12:04-0400 Mean blood pressure 76 mm[Hg] Yoko Rizvi Jr. [facility] 03-03-2022 12:04-0400 SaO2% (BldA) [Mass fraction] 94 % Yoko Rizvi Jr. [facility] 03-03-2022 12:04-0400 Systolic blood pressure 106 mm[Hg] Yoko Rizvi Jr. [facility] 03-03-2022 11:50-0400 Blood Pressure Location Yoko Rizvi Jr. [facility] 03-03-2022 11:50-0400 Body temperature 97.52 [degF] Yoko Rizvi Jr. [facility] 03-03-2022 11:50-0400 Diastolic blood pressure 70 mm[Hg] Yoko Rizvi Jr. [facility] 03-03-2022 11:50-0400 Heart rate 58 /min Yoko Rizvi Jr. [facility] 03-03-2022 11:50-0400 Respiratory rate 10 /min Yoko Rizvi Jr. [facility] 03-03-2022 11:50-0400 SaO2% (BldA) [Mass fraction] 95 % Yoko Rizvi Jr. [facility] 03-03-2022 11:50-0400 Systolic blood pressure 141 mm[Hg] Yoko Rizvi Jr. [facility] 03-03-2022 11:40-0400 Blood Pressure Location Yoko Rizvi Jr. [facility] 03-03-2022 11:40-0400 Respiratory rate 17 /min Yoko Rizvi Jr. [facility] 03-03-2022 11:35-0400 Respiratory rate 11 /min Yoko Rizvi Jr. [facility] 03-03-2022 11:25-0400 Body temperature 97.16 [degF] Yoko Rizvi Jr. [facility] 03-03-2022 11:20-0400 Respiratory rate 26 /min Yoko Rizvi Jr. [facility] 03-03-2022 11:15-0400 Respiratory rate 19 /min Yoko Rizvi Jr. [facility] 03-03-2022 08:04-0400 Mean blood pressure 86 mm[Hg] Yoko Rizvi Jr. [facility] 03-03-2022 08:04-0400 Body temperature 98.42 [degF] Yoko Rizvi Jr. [facility] 03-03-2022 08:04-0400 Heart rate 68 /min Yoko Rizvi Jr. [facility] 02-17-2022 13:43-0400 Blood Pressure Location Yoko Rizvi Jr. [facility] 02-17-2022 13:43-0400 Diastolic blood pressure 69 mm[Hg] Yoko Rizvi Jr. [facility] 02-17-2022 13:43-0400 Systolic blood pressure 162 mm[Hg] Yoko Rizvi Jr. [facility] 02-17-2022 13:30-0400 Blood Pressure Location Yoko Rizvi Jr. [facility] 02-17-2022 13:30-0400 BP/Pulse Patient Position Yoko Rizvi Jr. [facility] 02-17-2022 13:30-0400 Diastolic blood pressure 52 mm[Hg] Yoko Rizvi Jr. [facility] 02-17-2022 13:30-0400 Heart rate 68 /min Yoko Rizvi Jr. [facility] 02-17-2022 13:30-0400 Mean blood pressure 84 mm[Hg] Yoko Rizvi Jr. [facility] 02-17-2022 13:30-0400 Respiratory rate 24 /min Yoko Rizvi Jr. [facility] 02-17-2022 13:30-0400 SaO2% (BldA) [Mass fraction] 92 % Yoko Rizvi Jr. [facility] 02-17-2022 13:30-0400 Systolic blood pressure 149 mm[Hg] Yoko Rizvi Jr. [facility] 02-17-2022 13:30-0400 Body temperature 99.32 [degF] Yoko Rizvi Jr. [facility] 02-01-2022 11:14-0400 Blood Pressure Location Yoko Rizvi Jr. [facility] 02-01-2022 11:14-0400 Diastolic blood pressure 43 mm[Hg] Yoko Rizvi Jr. [facility] 02-01-2022 11:14-0400 Heart rate 72 /min Yoko Rizvi Jr. [facility] 02-01-2022 11:14-0400 Respiratory rate 16 /min Yoko Rizvi Jr. [facility] 02-01-2022 11:14-0400 Systolic blood pressure 133 mm[Hg] Yoko Rizvi Jr. [facility] 12-27-2021 12:42-0400 Blood Pressure Location Yoko Rizvi Jr. [facility] 12-27-2021 12:42-0400 Diastolic blood pressure 65 mm[Hg] Yoko Rizvi Jr. [facility] 05-09-2022 12:42-0400 Heart rate 68 /min Yoko Rizvi Jr. [facility] [place] 12-27-2021 12:42-0400 Systolic blood pressure 115 mm[Hg] Yoko Autumn Molina [facility] [place] Encounters Encounter Date Encounter Type Care Provider Facility Start: 02-20-2024 End: 02-20-2024 ambulatory DARINEL SMITH Not Available Start: 02-14-2024 End: 02-14-2024 ambulatory MOOKIE COFFEY Not Available Start: 02-12-2024 End: 02-12-2024 Emergency department patient visit II Komal Nguyen Work Phone: [facility] Work Phone: Start: 01-25-2024 End: 01-25-2024 ambulatory REAL TUTTLE Not Available Start: 01-17-2024 End: 01-17-2024 ambulatory ASHKAN BOCANEGRA Not Available Start: 12-21-2023 End: 12-21-2023 ambulatory STANLEY SAUNDERS Not Available Start: 12-18-2023 End: 12-19-2023 ambulatory Jadyn Wyman MD Facility:[facility] Start: 12-11-2023 End: 12-11-2023 ambulatory KOMAL NGUYEN Not Available Start: 11-29-2023 End: 11-29-2023 ambulatory ALEM SAMPSON Not Available Start: 11-17-2023 End: 11-17-2023 ambulatory AIDE FERREIRA Not Available Start: 11-16-2023 End: 11-16-2023 ambulatory REAL TUTTLE Not Available Start: 11-15-2023 End: 11-15-2023 ambulatory [facility] Start: 11-13-2023 End: 11-13-2023 ambulatory ALEM SAMPSON Not Available Start: 11-08-2023 End: 11-08-2023 ambulatory ALEM SAMPSON Not Available Start: 11-06-2023 End: 11-06-2023 ambulatory KOMAL NGUYEN Not Available Start: 10-30-2023 End: 10-30-2023 ambulatory ALEM SAMPSON Not Available Start: 10-25-2023 End: 10-25-2023 ambulatory ALEM SAMPSON Not Available Start: 10-16-2023 End: 10-16-2023 ambulatory ALEM SAMPSON Not Available Start: 10-11-2023 End: 10-12-2023 ambulatory KOMAL NGUYEN Facility:[facility] Start: 10-09-2023 End: 10-09-2023 ambulatory ALEM SAMPSON Not Available Start: 10-05-2023 End: 10-05-2023 Assay of hemosiderin, quant Komal Nguyen MD Work Phone: [facility] Work Phone: Start: 10-05-2023 End: 10-05-2023 Patient encounter procedure Komal Nguyen MD Work Phone: [facility] Comment on above: Routine general medi nabila examination at health care facility (Primary Dx); ACP (advance care planning); Osteoarthritis of spine with radiculopathy, cervical region; Type 2 diabetes mellitus with diabetic neuropathy, without long-term current use of insulin (CMS/HCC); Type 2 diabetes 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, without long-term current use of insulin (CMS/HCC); Myasthenia gravis without (acute) exacerbation (G70.00); Atherosclerosis of [place] artery of both lower extremities with intermittent claudication (CMS/HCC); Morbid (severe) obesity due to excess calories (E66.01); Body mass index [BMI] 45.0-49.9, adult (Z68.42) Start: 10-05-2023 End: 10-05-2023 ambulatory KOMAL NGUYEN Not Available Start: 10-04-2023 Bamboo flowsheet Alem Ferrarotersall P TA [facility] Start: 10-04-2023 Bamboo flowsheet Alem Tattersall P TA [facility] Start: 10-04-2023 End: 10-04-2023 ambulatory Alem Sampson [employer]IST[employer]DEL[employer] [facility] Comment on above: Bilateral leg weakne ss (Primary Dx); Difficulty walking; Right leg pain Start: 09-28-2023 End: 09-28-2023 ambulatory Anderson Pratibha [employer] [facility] Comment on above: Bilateral leg weakne ss (Primary Dx); Difficulty walking; Right leg pain Start: 09-25-2023 Telephone encounter Komal kelly MD Work Phone: [facility] Start: 09-25-2023 End: 09-25-2023 ambulatory ANDERSON PRATIBHA Not Available Start: 09-21-2023 End: 09-21-2023 ambulatory Anderson Pratibha [employer] [facility] Comment on above: Bilateral leg weakne ss (Primary Dx); Difficulty walking; Right leg pain Start: 09-20-2023 End: 09-20-2023 ambulatory [facility] Ambulatory Start: 09-20-2023 End: 09-20-2023 Office outpatient visit 25 minutes [facility] Work Phone: [facility] Comment on above: Paroxysmal atrial fi brillation (CMS/HCC); Pulmonary embolism, unspecified chronicity, unspecified pulmonary embolism type, unspecified whether acute cor pulmonale present (CMS/HCC); Myasthenia gravis (CMS/HCC); High risk medication use; Essential hypertension; Mixed hyperlipidemia; Morbid obesity with BMI of 45.0-49.9, adult (CMS/HCC) Start: 09-18-2023 End: 09-18-2023 ambulatory ALEM ESTEBAN Not Available Start: 09-14-2023 End: 09-14-2023 ambulatory KOMAL NGUYEN Facility:[facility] Start: 09-14-2023 End: 09-14-2023 ambulatory Komal Nguyen Facility:[facility] Start: 09-13-2023 End: 09-13-2023 ambulatory ANDERSON MCKINNON Not Available Start: 09-11-2023 End: 09-11-2023 ambulatory DARINEL SMITH Not Available Start: 09-07-2023 End: 09-07-2023 ambulatory REAL TUTTLE Not Available Start: 08-03-2023 End: 08-03-2023 ambulatory KOMAL NGUYEN Not Available Start: 06-28-2023 End: 06-28-2023 ambulatory KOMAL NGUYEN Not Available Start: 05-21-2023 End: 06-10-2023 Evaluation and management of inpatient II Komal Nguyen Work Phone: [facility] Work Phone: Start: 05-19-[address] Komal Allisno silvana Nguyen II Facility:[id number] Start: 05-18-[address] Komal Allison silvana Nguyen II Facility:[id number] Start: 05-16-[address] Komal Allison silvana Nguyen II Facility:[id number] Start: 05-10-2023 End: 05-21-2023 Evaluation and management of inpatient II Komal Nguyen Work Phone: [facility] Work Phone: Start: 03-09-2023 End: 03-10-2023 ambulatory II Komal Nguyen Work Phone: [facility] Work Phone: Start: 03-09-2023 End: 03-09-2023 Departed Referred II Komal Nguyen Work Phone: [facility] Start: 12-08-2022 End: 12-09-2022 ambulatory [facility] Facility:[facility] Start: 11-21-2022 End: 12-07-2022 ambulatory [facility] Facility:[facility] Start: 10-31-2022 End: 11-18-2022 ambulatory [facility] Facility:[facility] Start: 10-19-2022 End: 10-28-2022 ambulatory [facility] Facility:[facility] Start: 10-15-2022 End: 10-18-2022 Evaluation and management of inpatient KOMAL NGUYEN [facility] Start: 10-15-2022 End: 10-18-2022 Evaluation and management of inpatient Honorio Vuong MD Work Phone: [facility] Start: 09-07-2022 Office outpatient vi sit 25 minutes Melonie Rizvi EVENT [employer] Work Phone: [place] [id number] DO Work Phone: Start: 09-07-2022 Patient encounter procedure Melonie Rizvi EVENT [employer] Work Phone: [facility] [address] DO Work Phone: Start: 09-07-[address] Komal Nguyen II Facility: Start: 08-30-2022 End: 08-30-2022 ambulatory II Komal Nguyen Work Phone: [facility] Work Phone: Start: 08-30-2022 End: 08-30-2022 Departed Referred II Komal Nguyen Work Phone: [facility] Start: 06-28-2022 End: 06-28-2022 ambulatory II Komal Nguyen Work Phone: [facility] Work Phone: Start: 06-28-2022 End: 06-28-2022 Departed Referred II Komal Nguyen Work Phone: [facility] Start: 06-14-2022 End: 06-14-2022 ambulatory II Komal Nguyen Work Phone: [facility] Work Phone: Start: 06-14-2022 End: 06-14-2022 Departed Referred II Komal Nguyen Work Phone: [facility] Start: 05-06-2022 ambulatory Celso Peñaloza MD , PhD Work Phone: Urology Start: 05-06-2022 End: 05-06-2022 Patient encounter procedure Celso Peñaloza MD, PhD Work Phone: Urology Comment on above: Malignant neoplasm o f overlapping sites of bladder (HCC) (Primary Dx) Start: 03-29-2022 End: 03-30-2022 ambulatory Yoko Rizvi Facility:[facility] Start: 03-29-2022 End: 03-29-2022 Patient encounter procedure Yoko Rizvi Jr. [facility] Start: 03-29-2022 ambulatory Yoko Riziv Facility:[facility] Start: 03-03-2022 End: 03-03-2022 ambulatory Yoko Rizvi [facility] Start: 03-03-2022 End: 03-03-2022 Admission to same day surgery center Yoko Rizvi Jr. [facility] Start: 02-17-2022 End: 02-18-2022 ambulatory Yoko Rizvi Facility:[facility] Start: 02-17-2022 End: 02-17-2022 Patient encounter procedure Yoko Rizvi Jr. [facility] Start: 02-01-2022 End: 02-02-2022 ambulatory Yoko Rizvi Facility:[facility] Start: 02-01-2022 End: 02-01-2022 Patient encounter procedure Yoko Rizvi Jr. [facility] Start: 01-21-2022 End: 01-22-2022 ambulatory MASHA LEY Facility:[facility] Start: 01-21-2022 End: 01-21-2022 Lab Drop off MASHA LEY [facility] Start: 01-21-2022 End: 01-21-2022 Patient encounter procedure Yoko Rizvi Jr. [facility] [place] Start: 01-18-2022 End: 01-19-2022 ambulatory Yoko Rizvi Facility:[facility] Start: 01-18-2022 End: 01-18-2022 Patient encounter procedure Yoko Rizvi Jr. [facility] Start: 01-12-2022 End: 01-13-[address] YOKO RIZVI JR Facility:[facility] Start: 01-11-2022 Encounter for preprocedural cardiovascular examination DR YOKO RIZVI JR [facility] Start: 01-11-2022 Encounter for preprocedural laboratory examination DR YOKO RIZVI JR [facility] Start: 01-08-[address] YOKO RIZVI JR Fa cility:[facility] Start: 01-05-2022 End: 01-06-[address] YOKO RIZVI JR Facility:[facility] Start: 01-05-2022 End: 01-06-2022 Encounter for preprocedural cardiovascular examination DR YOKO RIZVI JR Facility:[facility] Start: 12-27-2021 End: 12-28-2021 ambulatory Yoko Rizvi Facility:[facility] [place] Start: 12-27-2021 End: 12-27-2021 Patient encounter procedure Yoko Rizvi Jr. [facility] Start: 12-15-2021 End: 12-16-[address] YOKO RIZVI JR Facility:[facility] Start: 12-07-2021 ambulatory Yoko Rizvi Facility:[facility] Start: 12-07-2021 End: 12-08-2021 ambulatory Yoko Rizvi [facility] Start: 12-07-2021 End: 12-07-2021 Patient encounter procedure Yoko Rizvi Jr. [facility] Start: 11-05-2021 ambulatory Yoko Rizvi Facility:[facility] Start: 05-25-2021 End: 05-25-[address] KOMAL NGUYEN Facility:[facility] Start: 04-19-2021 End: 04-20-[address] KOMAL NGUYEN Facility:[facility] Start: 02-09-2021 End: 02-10-2021 ambulatory ASHKAN BOCANEGRA Facility:[facility] Start: 01-11-2018 Ambulatory BALTAZAR [place] ity:[id number] Start: 01-08-2018 Ambulatory OLIVIA HALL Facility :[id number] Imaging result normal Melonie Rizvi EVENT [employer] Work Phone: -[facility] [address] DO Work Phone: Procedures Date Procedure Procedure Detail Performing Clinician Start: 02-12-2024 Plain chest X-ray II Amador Nguyen Work Phone: Start: 11-15-2023 HOLTER OR EVENT CARD IAC [...] MD Work Phone: Start: 10-16-2022 C-reactive protein Bran arianna Vuong MD Work Phone: Start: 10-16-2022 Prothrombin time Brandon Vuong MD Work Phone: Start: 05-06-2022 Urnls dip stick/tabl et reagent auto microscopy Bulk Order Provider Start: 03-03-2022 Cystoscopy and trans urethral resection of bladder tumor Yoko Rizvi Jr. Start: 12-27-2021 Cystoscopy Yoko burnette Jr. Start: 02-16-2017 Transurethral water vapor ablation of prostate Yoko Rizvi Jr. Appendectomy Melonie maravilla EVENT [employer] Work Phone: Cardiac catheterization Alondra Rizvi Jr. Cardiac catheterization Amandeep Rizvi EVENT CO[employer] Work Phone: Cataract surgery Melonie Rizvi EVENT [employer] Work Phone: Entire neck (body structure) Yoko Rizvi Jr. Comment on above: 2017 Excision of neoplasm Melonie villatoro Autumn EVENT CO[employer] Work Phone: Comment on above: bladder; Extraction of cataract Horace Rizvi Jr. Procedure on neck Melonie Rizvi EVENT CO[employer] Work Phone: Total colonoscopy Melonie Rizvi EVENT [employer] Work Phone: Comment on above: PROCEDURE DATE 2007; Plan of Treatment Date Care Activity Detail Author Start: 04-27-2025 DIABETES SCREEN DIABETES SCREEN [facility] Start: 10-05-2024 Medicare Annual Well ness (AWV) Medicare Annual Wellness (AWV) [facility] Start: 09-24-2024 End: 09-24-2024 Patient encounter procedure 09/24/2024 2:20 PM EST Office Visit [facility] [address] [place] [address] Baltazar Hoover DO [address] [facility] [address] [place] [address] [facility] Start: 03-19-2024 End: 03-19-2024 Patient encounter procedure 03/19/2024 1:00 PM EDT Office Visit [facility] [address] [place] [address] Melonie Rizvi, EVENT [employer] [address] [facility] [address] [place] [address] [facility] Start: 02-12-2024 Bacteria identified in Blood by Culture [facility] Start: 12-24-2023 Hemoglobin A1c measurement Diabetes: Hemoglobin A1C [facility] Start: 11-16-2023 End: 11-16-2023 Patient encounter procedure 11/16/2023 3:40 PM EDT Procedure Visit [facility] [address] [facility] [address] [place] [address] Real Tuttle DPM [address] [facility] [address] [place] [address] [facility] Start: 11-15-2023 End: 09-20-2024 Holter monitor study Holter Or Event [employer] Supervisor Cardiac Services Routine Paroxysmal atrial fibrillation (CMS/HCC) Expected: 11/15/2023, Expires: 09/20/2024 [facility] Service Area Work Phone: Comment on above: Expected: 11/15/2023 , Expires: 09/20/2024 Start: 11-15-2023 End: 11-15-2023 Professional / ancillary services management 11/15/2023 1:00 PM EDT Ancillary Procedure [facility] [address] [facility] [address] [place] [address] [facility] Start: 10-09-2023 End: 10-09-2023 ambulatory [facility] Start: 10-05-2023 End: 10-05-2023 Patient encounter procedure 10/05/2023 1:15 PM EST Office Visit [facility] [address] [facility] [address] [place] [address] Komal Nguyen MD [address] [facility] [address] [place] [address] [facility] Start: 10-04-2023 End: 10-04-2023 ambulatory [facility] Comment on above: Arrived Start: 09-28-2023 End: 09-28-2023 ambulatory 09/28/2023 1:30 PM EST Treatment [facility] [address] [facility] [address] [place] [address] Anderson Mckinnon PTA [facility] Start: 09-25-2023 End: 09-25-2024 CBC W Auto Differential panel - Blood CBC and differential Lab Routine Paroxysmal atrial fibrillation (CMS/HCC) Expected: 09/25/2023 (Approximate), Expires: 09/25/2024 [facility] Comment on above: Expected: 09/25/2023 (Approximate), Expires: 09/25/2024 Start: 09-25-2023 End: 09-25-2024 Comprehensive metabolic 2000 panel - Serum or Plasma Comprehensive metabolic panel Lab Routine Benign essential hypertension (CMS/HCC) Expected: 09/25/2023 (Approximate), Expires: 09/25/2024 [facility] Comment on above: Expected: 09/25/2023 (Approximate), Expires: 09/25/2024 Start: 09-25-2023 End: 09-25-2024 Hemoglobin A1c measurement Hemoglobin A1c Lab Routine Type 2 diabetes mellitus with diabetic neuropathy, without long-term current use of insulin ([facility]/HCC) Expected: 09/25/2023 (Approximate), Expires: 09/25/2024 [facility] Work Phone: Comment on above: Expected: 09/25/2023 (Approximate), Expires: 09/25/2024 Start: 09-25-2023 End: 09-25-2024 Lipid 1996 panel - Serum or Plasma Lipid panel Lab Routine Type 2 diabetes mellitus with diabetic neuropathy, without long-term current use of insulin (CMS/HCC) Benign essential hypertension (CMS/HCC) Expected: 09/25/2023 (Approximate), Expires: 09/25/2024 [facility] Comment on above: Expected: 09/25/2023 (Approximate), Expires: 09/25/2024 Start: 09-25-2023 End: 09-25-2024 TSH W/REFLEX TO FT4 TSH W/REFLEX TO FT4 Lab Routine Type 2 diabetes mellitus with diabetic neuropathy, without long-term current use of insulin (CMS/HCC) Expected: 09/25/2023 (Approximate), Expires: 09/25/2024 [facility] Comment on above: Expected: 09/25/2023 (Approximate), Expires: 09/25/2024 Start: 09-25-2023 End: 09-25-2023 ambulatory 09/25/2023 12:30 PM EST Treatment [facility] [address] [place] [id number] Anderson Mckinnon PTA [facility] Start: 08-24-2023 FUV, Provider: Baltazar Hoover, Status: Pen, Time: 11:10 AM FUV, Provider: Baltazar Hoover, Status: Kip, Time: 11:10 AM [facility] 250 DO Work Phone: Start: 07-01-2023 Hemoglobin A1c measurement Diabetes: Hemoglobin A1C [facility] Start: 06-10-2023 [facility] Start: 05-22-2023 [facility] Start: 05-21-2023 [facility] Start: 05-21-2023 Administration of prophylactic treatment [facility] Start: 05-21-2023 Hospital admission [facility] Start: 05-21-2023 Referral to clinical odd shoe examiner [facility] Start: 05-21-2023 [facility] Start: 05-18-2023 Administration of prophylactic treatment [facility] Start: 05-18-2023 [facility] Start: 05-16-2023 Referral to rehabilitation physician [facility] Start: 05-16-2023 [facility] Start: 05-11-2023 Consultation [facility] Start: 05-11-2023 Hospital admission [facility] Start: 05-11-2023 Referral to neurologist [facility] Start: 05-10-2023 Respiratory Ventilat ion, Greater than 96 Consecutive Hours Respiratory Ventilation, Greater than 96 Consecutive Hours [facility] Start: 04-21-2023 COVID-19 Vaccine ( season) COVID-19 Vaccine ( season) [facility] Start: 04-21-2022 Influenza vaccination INFLUENZA (#1) [facility] Start: 03-21-2022 Influenza vaccination Flu vaccine (# 1) [facility] Start: 09-25-2021 COVID-19 VACCINE (4 - Booster for Pfizer series) COVID-19 VACCINE (4 - Booster for Pfizer series) [facility] Start: 08-21-2021 ADVANCE DIRECTIVE DISCUSSION ADVANCE DIRECTIVE DISCUSSION [facility] Start: 08-17-2021 Urine screening for protein Diabetes: Urine Protein Screening [facility] Start: 07-19-2021 COVID-19 Vaccine (4 - Booster for Pfizer series) COVID-19 Vaccine (4 - Booster for Pfizer series) [facility] Start: 07-03-2012 Zoster Vaccines (2 of 3) Zoste r Vaccines (2 of 3) [facility] Start: 2008 PNEUMOCOCCAL: 65+ (1 - PCV) PNEUMOCOCCAL: 65+ (1 - PCV) [facility] Start: 1993 SHINGRIX VACCINE (1 of 2) SHINGRIX VACCINE (1 of 2) [facility] Start: 1965 DTaP/Tdap/Td Vaccine s (1 - Tdap) DTaP/Tdap/Td Vaccines (1 - Tdap) [facility] Start: 1962 DTaP/Tdap/Td vaccine (1 - Tdap) DTaP/Tdap/Td vaccine (1 - Tdap) [facility] Start: 1962 Urine microalbumin profile DTAP,TDAP,TD (1 - Tdap) [facility] Start: 1961 Diabetes mellitus screening Diabetes Screening [facility] Start: 1961 HEPATITIS C SCREENING HEPATITIS C [facility] Start: 1961 Hepatitis C screening Hepatitis C [facility] Start: 1955 Adult depression screening assessment DEPRESSION SCREENING [facility] Start: 1953 Glaucoma screening Diabetes: R etinopathy Screening [facility] Start: 1943 Lipid panel Lipid Panel [facility] Start: 1943 Medicare Annual Well ness (AWV) Medicare Annual Wellness (AWV) [facility] Start: 1943 Medicare Annual Well ness Visit Medicare Annual Wellness Visit (AWV) [facility] Start: 1943 Thyroid stimulating hormone measurement TSH Level [facility] End: 11-06-2022 Basic metabolic 2000 panel - Serum or Plasma Basic Metabolic Panel Lab Routine Daily for 3 Weeks starting 10/17/2022 until 11/06/2022, 2 completed [facility] Work Phone: Comment on above: Daily for [address] arting 10/17/2022 until 11/06/2022, 2 completed End: 11-06-2022 CBC panel - Blood by Automated count CBC Lab Routine Daily for 3 Weeks starting 10/17/2022 until 11/06/2022, 2 completed [facility] Phone: Comment on above: Daily for [address] arting 10/17/2022 until 11/06/2022, 2 completed Home BIPAP or CPAP Home BIPAP or CPAP Respiratory Care Routine Daily until discontinued starting 10/17/2022 [facility] Phone: Comment on above: Daily until disconti nued starting 10/17/2022 End: 10-15-2022 Intermittent pulse oximetry Pulse Oximetry Spot Check Respiratory Care Routine Continuous until discontinued starting 10/15/2022 [facility] Phone: Comment on above: Continuous until dis continued starting 10/15/2022 Oxygen therapy [[facility] Data Set] Initiate Oxygen Therapy Protocol Respiratory Care Routine As Needed until discontinued starting 10/15/2022 [facility] Phone: Comment on above: As Needed until disc ontinued starting 10/15/2022 Patient Education [facility] Work Phone: Patient referral [facility] Work Phone: [facility] Immunizations Immunization Date Immunization Notes Care Provider [facility] 06-22-2023 Influenza, High-dose Seasonal, Quadrivalent, Preservative Free Anderson Mckinnon [facility] 07-21-[address] 12 Years And Older Anderson Mckinnon [facility] 07-21-2022 Pfizer COVID-19 Vac Bivalent 30 MCG/0.3ML Intramuscular Suspension Melonie Rizvi EVENT COORDINATOR[employer] Work Phone: [facility] [employer] 250 DO Work Phone: 07-13-2022 Fluzone High-Dose Quadrivalent 0.7 ML Intramuscular Suspension Prefilled Syringe Melonie Rizvi EVENT COORDINATOR[employer] Work Phone: [employer] 250 DO Work Phone: 05-25-2021 Pfizer-BioNTech COVI D-19 Vacc 30 MCG/0.3ML Intramuscular Suspension Melonie Rizvi EVENT COORDINATOR[employer] Work Phone: [facility] 250 DO Work Phone: 05-20-2021 Fluad Quadrivalent 0 .5 ML Intramuscular Prefilled Syringe Melonie Rizvi EVENT COORDINATOR[employer] Work Phone: [place] [address] DO Work Phone: 05-20-2021 Seasonal, trivalent, recombinant, injectable influenza vaccine, preservative free Anderson Mckinnon [facility] 02-18-2021 SARS-CoV-2 (COVID-19 ) mRNA BNT-162b2 liana Rizvi Jr. [facility] 11-10-2020 Pfizer-BioNTech COVI D-19 Vacc 30 MCG/0.3ML Intramuscular Suspension Melonie Rizvi EVENT COORDINATOR-[employer] Work Phone: [facility] 250 DO Work Phone: 10-19-2020 Pfizer-BioNTech COVI D-19 Vacc 30 MCG/0.3ML Intramuscular Suspension Melonie Rizvi EVENT COORDINATOR-[employer] Work Phone: [place] [address] DO Work Phone: 09-21-2020 SARS-CoV-2 (COVID-19 ) mRNA BNT-162b2 liana Rizvi Jr. [facility] 08-21-2020 SARS-CoV-2 (COVID-19 ) mRNA BNT-162b2 liana Rizvi Jr. [facility] 05-06-2020 influenza, high dose seasonal, preservative-free Melonie Rizvi EVENT COORDINATOR[employer] Work Phone: [facility] 250 DO Work Phone: 05-06-2020 Influenza, High-dose Seasonal, Quadrivalent, Preservative Free Anderson Mckinnon [facility] 04-21-2020 influenza virus vacc ine, unspecified formulation Melonie Rizvi EVENT COORDINATOR-[employer] Work Phone: [facility] 250 DO Work Phone: 04-21-2020 influenza, seasonal, injectable Baltazar Hoover DO Work Phone: [facility] Work Phone: 05-27-2019 influenza, high dose seasonal, preservative-free Baltazar Hoover DO Work Phone: [facility] Work Phone: 05-27-2019 Influenza, High-dose Seasonal, Quadrivalent, Preservative Free Anderson Mckinnon [facility] 05-21-2019 influenza virus vacc ine, unspecified formulation Melonie Hanleykwasi Rizvi EVENT COORDINATOR-[employer] Work Phone: [facility] 250 DO Work Phone: 05-21-2019 influenza, seasonal, injectable Baltazar Hoover DO Work Phone: [facility] Work Phone: 05-23-2018 influenza, high dose seasonal, preservative-free Melonie Rizvi EVENT COORDINATOR-[employer] Work Phone: [facility] 250 DO Work Phone: 05-23-2018 Influenza, High-dose Seasonal, Quadrivalent, Preservative Free Anderson Mckinnon [facility] 11-30-2017 pneumococcal polysaccharide vaccine, 23 valent Melonie Rizvi EVENT COORDINATOR-[employer] Work Phone: [facility] 06-27-2017 influenza, high dose seasonal, preservative-free Melonie Rizvi EVENT COORDINATOR-[employer] DIRECTOR Work Phone: [facility] 250 DO Work Phone: 05-21-2017 pneumococcal vaccine , unspecified formulation Melonie Rizvi EVENT COORDINATOR-[employer] Work Phone: [place] [address] DO Work Phone: 05-17-2017 influenza, high dose seasonal, preservative-free Melonie Hanley Rizvi EVENT COORDINATOR[employer] Work Phone: [place] [address] DO Work Phone: 05-17-2017 Influenza, High-dose Seasonal, Quadrivalent, Preservative Free Anderson Pratibha [facility] 05-21-2016 pneumococcal conjuga te vaccine, 13 valent Melonie Rizvi EVENT COORDINATOR-[employer] DIRECT[employer] Work Phone: [place] [address] DO Work Phone: 10-26-2015 pneumococcal conjuga te vaccine, 13 valent Melonie Rizvi EVENT COORDINATOR-[employer] Work Phone: [place] [address] DO Work Phone: 05-22-2015 seasonal influenza, intradermal, preservative free Anderson Pratibha [facility] 05-30-2014 seasonal influenza, intradermal, preservative free Anderson Pratibha [facility] 05-08-2012 zoster vaccine, live Anderson Pratibha [facility] 10-19-2004 pneumococcal polysaccharide vaccine, 23 valent Anderson Pratibha [facility] Payers Date Payer Category Payer Self-pay [id number] 2022 Unknown 2016 Private Health Insurance [facility] AARP SUPPLEMENT [id number] 2016-Present [phone] [id number] [place] [address] Indemnity [id number] 2008 Medicare [id number] .[id number] 1959 Medicare [id number] 1959 Unknown [id number] 1943 Unknown [id number] 2.16.840.1.231215.3.579.2 .593 1943 Unknown [id number] 2.16.840.1.380563.3.579.2 .593 1943 Unknown [id number] 2.16.840.1.218572.3.579.2 .593 1943 Unknown [id number] 2.16.840.1.548195.3.579.2 .593 1943 Unknown [id number] 2.16.840.1.436683.3.579.2 .593 1943 Unknown [id number] 2.16.840.1.502287.3.579.2 .593 1943 Unknown [id number] 2.16.840.1.002370.3.579.2 .593 1943 Unknown [id number] 2.16.840.1.118603.3.579.2 .727 1943 Unknown [id number] 2.16.840.1.872676.3.579.2 .727 1943 Unknown [id number] 2.16.840.1.910727.3.579.2 .727 1943 Unknown [id number] 2.16.840.1.915581.3.579.2 .727 1943 Unknown [id number] 2.16.840.1.805184.3.579.2 .727 1943 Unknown [id number] 2.16.840.1.613116.3.579.2 .727 1943 Unknown [id number] 2.16.840.1.448476.3.579.2 .727 1943 Unknown [id number] 2.16840.1.668656.3.579.2 .727 1943 Unknown [id number] 2.16840.1.127060.3.579.2 .727 1943 Unknown [id number] 2.840.1.760347.3.579.2 .727 1943 Unknown [id number] 2.16840.1.650510.3.579.2 .727 1943 Unknown [id number] 2.16840.1.214351.3.579.2 .727 1943 Unknown [id number] 2.840.1.862487.3.579.2 .727 1943 Unknown [id number] 2..1.777595.3.579.2 .175 1943 Unknown [id number] 2.840.1.837558.3.579.2 .356 1943 Unknown [id number] 2.840.1.875884.3.579.2 .356 1943 Unknown [id number] 2.840.1.656044.3.579.2 .356 1943 Unknown [id number] 2..1.248863.3.579.2 .356 1943 Unknown [id number] 2.840.1.539187.3.579.2 .356 1943 Unknown [id number] 2.16840.1.849001.3.579.2 .718 1943 Unknown [id number] 2.840.1.755500.3.579.2 .718 1943 Unknown [id number] 2.840.1.630672.3.579.2 .718 1943 Unknown [id number] 2.16.840.1.396441.3.579.2 .718 1943 Unknown [id number] 2.16.840.1.485120.3.579.2 .718 1943 Unknown [id number] 2.16.840.1.796490.3.579.2 .8 1943 Unknown [id number] 2.16.840.1.461548.3.579.2 .718 1943 Unknown [id number] 2.16.840.1.636573.3.579.2 .1244 1943 Unknown [id number] 2.16840.1.452982.3.579.2 .1244 1943 Unknown [id number] 2.16.840.1.046631.3.579.2 .196 1943 Unknown [id number] 2.16840.1.406291.3.579.2 .1258 1943 Unknown [id number] 2.16840.1.022383.3.579.2 .1258 1943 Unknown [id number] 2.16.840.1.469222.3.579.2 .1259 1943 Unknown [id number] 2.16.840.1.545872.3.579.2 .1259 1943 Unknown [id number] 2.16.840.1.334167.3.579.2 .1259 1943 Unknown [id number] 2.16.840.1.772245.3.579.2 .1259 1943 Unknown [id number] 2.16.840.1.596768.3.579.2 .1259 1943 Unknown [id number] 2.16.840.1.811374.3.579.2 .1259 1943 Unknown [id number] 2.16.840.1.908789.3.579.2 .1259 1943 Unknown [id number] 2.16.840.1.903479.3.579.2 .1259 1943 Unknown [id number] 2.16.840.1.597111.3.579.2 .1259 1943 Unknown [id number] 2.16.840.1.830018.3.579.2 .1258 1943 Unknown [id number] 2.16.840.1.224791.3.579.2 .125 1943 Unknown [id number] 2.16.840.1.116592.3.579.2 .1258 1943 Unknown [id number] 2.16.840.1.983436.3.579.2 .1258 1943 Unknown [id number] 2.16.840.1.754372.3.579.2 .1258 1943 Unknown [id number] 2.16.840.1.824794.3.579.2 .1259 1943 Unknown [id number] 2.16.840.1.519197.3.579.2 .1258 1943 Unknown [id number] 2.16.840.1.034859.3.579.2 .1258 1943 Unknown [id number] 2.16.840.1.268173.3.579.2 .125 1943 Unknown [id number] 2.16.840.1.446431.3.579.2 .1259 1943 Unknown [id number] 2.16.840.1.721606.3.579.2 .1258 1943 Unknown [id number] 2.16.840.1.212508.3.579.2 .9 1943 Unknown [id number] 2.16.840.1.198483.3.579.2 .1258 1943 Unknown [id number] 2.16.840.1.137579.3.579.2 .1259 1943 Unknown [id number] 2.16.840.1.960732.3.579.2 .1259 1943 Unknown [id number] 2.16.840.1.033599.3.579.2 .1259 1943 Unknown [id number] 2.16.840.1.711727.3.579.2 .1259 Medicare [id number] Unknown [id number] 2.16.840.1.620735.3.579.2 .531 Unknown [id number] 2.16.840.1.565957.3.579.2 .531 Unknown [id number] 2.16.840.1.123135.3.579.2 .531 Unknown [id number] 2.16.840.1.734519.3.579.2 .531 Unknown [id number] 2.16.840.1.804579.3.579.2 .531 Social History Date Type Detail Facility Start: 12-07-2021 End: 02-12-2024 Tobacco smoking status Never smoked tobacco (finding) [facility] Start: 03-17-2023 End: 09-20-2023 Sex Assigned At Male [facility] Tobacco smoking status Never [facility] Start: 01-03-2019 End: 12-23-2022 Tobacco use and exposure Smokeless tobacco non-user [facility] Start: 05-06-2022 Alcohol intake Current drinke r of alcohol (finding) [facility] Start: 05-08-2017 History SDOH Alcohol Comment rare [facility] Start: 1945 Sex Assigned At Not on file [facility] Start: 04-26-2022 End: 09-20-2023 Exposure to SARS-CoV-2 (event) Not sure [facility] Work Phone: Start: 1945 Sex Assigned At Male [facility] Start: 03-17-2023 End: 09-20-2023 Caffeine use Caffeine use -[facility] 250 DO Work Phone: Comment on above: 2 CANS DAILY OF CAFF IENE FREE OR DIET POP; Start: 09-20-2023 Alcohol intake Ex-drinker (finding) [facility] Work Phone: Start: 09-07-2023 End: 10-05-2023 [...] Only a little [facility] (I/We) worried wheth er (my/our) food would run out before (I/we) got money to buy more. Never true [facility] Goals Date Patient Goal Desired Activity /State Functional Status Date Assessment Result Facility 06-10-2023 Functional status Patient at Baseline [facility] Work Phone: 05-21-2023 Functional status 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 Baseline [facility] Work Phone: 03-29-2022 Functional Status N/A [facility] 02-17-2022 Functional Status No [facility] 02-01-2022 Functional Status N/A [facility] Mental Status Date Assessment Result Facility 06-10-2023 Cognitive function Cognitive Sta tus Patient at Baseline [facility] Work Phone: 05-21-2023 Cognitive function Cognitive Sta tus Patient at Baseline [facility] Work Phone: Clinical Notes 12-07-2021 to 10-05-2023 [...] by mouth in the morning. nystatin (Mycostatin) 099948 UNIT/GM powder APPLY TO THE AFFECTED AREA(S) [...] Yes Cognitive Screening Three Word Registration: Banana, Sylvester, Chair Clock Drawing: Normal Clock - 2 Three Word Recall: All 3 words correct - 3 Total Score (0-5 Points): 5 Pain Assessment Pain Score: 4 Advance Care Planning Do you have a living will?: Yes Do you have a medical power of senior trial attorney?: Yes Who is your medical power of senior trial attorney?: --gabrielle Objective : BP 134/82 Pulse [...] a living will and durable power of senior trial attorney for healthcare. We discussed telling garcia [...] gravis without (acute) exacerbation (G70.00) Atherosclerosis of [place] artery of both lower extremities with intermittent claudication (CMS/HCC) Morbid (severe) obesity due to excess calories (E66.01) Body mass index [BMI] 45.0-49.9, adult (Z68.42) Follow up in about 4 months (around 02/03/2024) for Routine F/U. No orders of the defined types were placed in this encounter. Electronically signed by Komal Nguyen MD on October 05, 2023 documented in this encounter [facility] 09-28-2023 Note [id number] 09-25-2023 Telephone encounter Note Lab order. [facility] 09-25-2023 Miscellaneous Notes Lab order. documented in this encounter [facility] 09-20-2023 History of Presen t illness Narrative [...] mouth once daily., Disp: , Rfl: omega 0-dhr-gov-fish oil 360 mg-108 mg- 180 mg-1,200 mg [...] Scribe Attestation By signing my name below, IConnie LPN , Scribmagdalena attest that this documentation has been prepared under the direction and in the presence of Baltazar Hoover DO. Assessment/Plan 1. Paroxysmal atrial fibrillation (CMS/HCC) 2. Pulmonary embolism, unspecified chronicity, unspecified pulmonary embolism type, unspecified whether acute cor pulmonale present (CMS/HCC) 3. Myasthenia gravis (CMS/HCC) 4. High risk medication use 5. Essential hypertension 6. Mixed hyperlipidemia 7. Morbid obesity with BMI of 45.0-49.9, adult (CMS/HCC) documented in this encounter [facility] Work Phone: 09-20-2023 Instructions Connie Morejon [...] amio,stop amio testing documented in this encounter [facility] Work Phone: 09-14-2023 Note [facility] SURGERY Clinical Discharge Summary PERSON INFORMATION Name TAURUS GARCIA Age 77 Years 1945 Sex MALE Language Indonesian PCP KOMAL NGUYEN Marital Status Med Service Ambulatory Surgery Acct# Arrival 09/14/2023 13:50:55 Visit Reason SURGERY - CYSTO BLADDER BIOPSY Acuity LOS 035 01:49 Address: [address] [place] [id number] Comment: PROVIDER INFORMATION VITALS INFORMATION Vital Sign [...] tablet, extended release) (more content not included)... [facility] 06-10-2023 Discharge summary Note Date/Time June 10, 2023 8:11am [facility] [address] [place] [address] Discharge Summary Signed Patient: Taurus Garcia MR#: [id number] : 1945 Acct:[id number] Age/Sex: 77 / M Adm Date: 3 Loc: Room: 7A4251-[address]: Silvestre Grover MD Copies to: [...] due to MG crisis. Patient presented to [facility] on 05/11/2023 with complaints of worseninggeneralized weakness over the course of several days. He was found to be mildlyhypoxic. Also complaining of urinary symptoms. Initially admitted to [facility] for observation however developed worsening respiratory status with increased secretions and inability to protect own airway and was subsequently intubated and transferred to [facility] for neurology services. Patient received a 5-day [...] Plan Discharge Plan Patient Disposition: Home Health [facility] Activity: Ambulate as Tolerated Diet: Regular Additional [...] home prior. Your Home Health agency is [facility] ( ). They will contact you 24-48 [...] call and check back for vaccine availability ([phone]). Prescriptions: New nystatin [Nystop] 100,000 unit/gram Powder [...] Determined by Patient Ordered By: Silvestre Grover DME Home Medical Equipment (Routine) Timeframe: 20230607 [...] By: <Electronically signed by Silvestre Grover MD> 06/10/23 0811 [facility] Work Phone: 1(600) 597-964910-19-2023 Progress note Author Jarret Garza [facility] June 08, 2023 7:01am Note Date/Time June 07, 2023 5 :18pm [facility] [address] [place] [address] Hospitalist Progress Note Signed Patient: Taurus Garcia MR#: [id number] : 1945 Acct:[id number] Age/Sex: 77 / M Adm Date: 3 Loc: Room: [address] [place] [address] Type: ADM IN Attending Dr: Silvestre Grover [...] mg 05/21/23 14:25 Bisacodyl 10 Mg Supp.Rect SC 05/20/24 14:24 DAILY PRN Constipation Docusate Sodium 100 mg 05/21/23 14:25 Docusate 100 Mg Capsule PO 05/20/24 14:24 BID PRN Constipation Docusate Sodium 283 mg 05/21/23 14:25 Docusate Enema 283 Mg/5 Ml Enema SC 05/20/24 14:24 DAILY PRN Constipation Fish Oil 1,000 mg 05/21/23 21:00 06/07/23 09:38 [place]-3/Fish Oil 1,000 Mg Capsule PO 05/20/24 20:59 [...] 05/31/24 08:59 Not Given DAILY DORI Pyridostigmine Golf 60 mg 05/21/23 18:00 06/07/23 17:02 Pyridostigmine Golf 60 Mg Tablet PO 05/20/24 17:59 60 [...] signed by Jarret Garza MD> 06/08/23 0701 [facility] Work Phone: 1(295) 735-319210-18-2023 Progress note Author Silvestre Grover [facility] June 07, 2023 3:10pm Note Date/Time June 07, 2023 1 :12pm [facility] [address] [place] [address] Physiatry(Rehab) Progress Note Signed Patient: Taurus Garcia MR#: [id number] : 1945 Acct:[id number] Age/Sex: 77 / M Adm Date: 3 Loc: Room: [address] [place] [address] Type: ADM IN Attending Dr: Silvestre Grover [...] due to MG crisis. Patient presented to [facility] on 05/11/2023 with complaints of worseninggeneralized weakness over the course of several days. He was found to be mildlyhypoxic. Also complaining of urinary symptoms. Initially admitted to [facility] for observation however developed worsening respiratory status with increased secretions and inability to protect own airway and was subsequently intubated and transferred to [facility] for neurology services. Patient received a 5-day [...] affect appropriate. Normal speech. Objective <Antonia Grier, EVENT COORDINATOR - Last Filed: 06/07/23 13:25> Labs 05/30/23 [...] mg 05/21/23 14:25 Bisacodyl 10 Mg Supp.Rect SC 05/20/24 14:24 DAILY PRN Constipation Docusate Sodium 100 mg 05/21/23 14:25 Docusate 100 Mg Capsule PO 05/20/24 14:24 BID PRN Constipation Docusate Sodium 283 mg 05/21/23 14:25 Docusate Enema 283 Mg/5 Ml Enema SC 05/20/24 14:24 DAILY PRN Constipation Fish Oil 1,000 mg 05/21/23 21:00 06/07/23 09:38 Riverview-3/Fish Oil 1,000 Mg Capsule PO 05/20/24 20:59 [...] 05/31/24 08:59 Not Given DAILY DORI Pyridostigmine Golf 60 mg 05/21/23 18:00 06/07/23 09:39 Pyridostigmine Golf 60 Mg Tablet PO 05/20/24 17:59 60 [...] tab DAILY DORI Administration Assessment/Plan <Antonia Grier, EVENT COORDINATOR - Last Filed: 06/07/23 13:25> Assessment/Plan (1) [...] secondary to myasthenic crisis. Initially admitted to [facility] later transferred to [facility] for neurology services. Had to be intubated [...] equipment to enhance the patient's a functional mandaeism Ensure adequate nutrition and hydration Sleep: No concerns. Pain: Continue current regimen Discharge planning: Hopefully home with his end of week/early next week. I spent greater than 15 minutes for services, including [id number] encounter with the patient, discussion of the case, plan of care, and exam; and biltaek-zj-[id number] activities, such as reviewing pertinent independent beauty consultant documentation, recent therapy notes, laboratory and radiology studies, and discussion of case with care team including physician, nursing, case manager, and therapists. More than 50 [...] Allied health note review, nursing note review, independent beauty consultant note review, discussion with nursing and case management, and more than 50% of my time was spent on counseling and coordination of care, time spent 25 minutes Patient was personally seen by me, Dr. Grover, on the day of encounter, reviewed the history and the relevant portions of the chart, including current orders, allied health and independent beauty consultant notes, labs/imaging and performed garcia elements of exam and I formulated the plan of care and facilitated the medical decision making. Documented By: Antonia Grier APRN 06/07/23 1 310 Signed By: <Electronically signed by ZACH Grier> 06/07/23 1325 <Electronically signed by Silvestre Grover MD> 06/07/23 1510 [facility] Work Phone: 1(407) 227-155110-17-2023 Progress note Author Silvestre Grover [facility] June 06, 2023 3:59pm Note Date/Time June 06, 2023 3 :59pm [facility] [address] [place] [address] Physiatry(Rehab) Progress Note Signed Patient: Taurus Garcia MR#: [id number] : 1945 Acct:[id number] Age/Sex: 77 / M Adm Date: 3 Loc: 5T Room: 6B3621-8 Type: ADM IN Attending Dr: Silvestre Grover MD Copies to: ~ Date of Service: 06/06/2023 Subjective Subjective Narrative: Mr. Garcia is a 77 year old male with past medical history of myasthenia gravis,hypertension, A-fib anticoagulated with Eliquis, PE, CKD, obstructive sleep apnea on BiPAP, who presents to acute inpatient rehab with functional impairments due to MG crisis. Patient presented to [facility] on 05/11/2023 with complaints of worseninggeneralized weakness over the course of several days. He was found to be mildlyhypoxic. Also complaining of urinary symptoms. Initially admitted to [facility] for observation however developed worsening respiratory status with increased secretions and inability to protect own airway and was subsequently intubated and transferred to [facility] for neurology services. Patient received a 5-day [...] mg 05/21/23 14:25 Bisacodyl 10 Mg Supp.Rect SC 05/20/24 14:24 DAILY PRN Constipation Docusate Sodium 100 mg 05/21/23 14:25 Docusate 100 Mg Capsule PO 05/20/24 14:24 BID PRN Constipation Docusate Sodium 283 mg 05/21/23 14:25 Docusate Enema 283 Mg/5 Ml Enema SC 05/20/24 14:24 DAILY PRN Constipation Fish Oil 1,000 mg 05/21/23 21:00 06/06/23 10:08 Riverview-3/Fish Oil 1,000 Mg Capsule PO 05/20/24 20:59 [...] Tablet PO 05/21/24 08:59 Not Given DAILY [facility] Nystatin 1 applic 05/22/23 09:00 06/06/23 14:39 Nystatin 100,000 Unit/Gram Powder 15 Gm Bottle TOPICAL 05/21/24 08:59 1 applic TID DORI Administration Potassium Chloride 10 meq 05/22/23 09:00 06/06/23 10:08 Potassium Chloride Liquid 20 Meq/15 Ml Udc PO 05/21/24 08:59 10 meq DAILY DORI Administration Prednisone 10 mg 05/22/23 09:00 06/06/23 10:08 Prednisone 10 Mg Tablet PO 05/21/24 08:59 10 mg DAILY DORI Administration Psyllium Hydrophilic Mucilloid 1 packet 06/01/23 09:00 06/06/23 10:08 Psyllium Husk 3.4 Gm Packet PO 05/31/24 08:59 Not Given DAILY DORI Pyridostigmine Golf 60 mg 05/21/23 18:00 06/06/23 14:39 Pyridostigmine Golf 60 Mg Tablet PO 05/20/24 17:59 60 [...] secondary to myasthenic crisis. Initially admitted to [facility] later transferred to [facility] for neurology services. Had to be intubated [...] equipment to enhance the patient's a functional mandaeism Ensure adequate nutrition and hydration Sleep: No concerns. Pain: Continue current regimen Discharge planning: Hopefully home with his end of week/early next week. Plan: I completed a substantive portion of this encounter, the medical decision making portion of this note in its entirety, including Allied health note review, nursing note review, independent beauty consultant note review, discussion with nursing and case management, and more than 50% of my time was spent on counseling and coordination of care, time spent 25 minutes Patient was personally seen by me, Dr. Grover, on the day of encounter, reviewed the history and the relevant portions of the chart, including current orders, allied health and independent beauty consultant notes, labs/imaging and performed garcia elements of exam and I formulated the plan of care and facilitated the medical decision making. Documented By: Silvestre Grover MD 06/06/23 2658 Signed By: <Electronically signed by Silvestre Grover MD> 06/06/23 1553 [facility] Work Phone: 1(533) 837-368910-17-2023 Hospital Discharge instructionsAmbulatory Orders* Initiate Home Health [...] home prior. Your Home Health agency is [facility] ( ). They will contact you 24-48 [...] call and check back for vaccine availability ([phone]).[facility] Work Phone: 1(755) 722-345510-17-2023 Progress note Author Silvestre Grover [facility] June 06, 2023 11:30am Note Date/Time June 05, 2023 1 :16pm [facility] [address] [place] [address] Physiatry(Rehab) Progress Note Signed Patient: Taurus Garcia MR#: [id number] : 1945 Acct:[id number] Age/Sex: 77 / M Adm Date: 3 Loc: Room: [address] [place] [address] Type: ADM IN Attending Dr: Sivlestre Grover MD Copies to: ~ Date of Service: 06/05/2023 Subjective Subjective Narrative: Mr. Garcia is a 77 year old male with past medical history of myasthenia gravis,hypertension, A-fib anticoagulated with Eliquis, PE, CKD, obstructive sleep apnea on BiPAP, who presents to acute inpatient rehab with functional impairments due to MG crisis. Patient presented to [facility] on 05/11/2023 with complaints of worseninggeneralized weakness over the course of several days. He was found to be mildlyhypoxic. Also complaining of urinary symptoms. Initially admitted to [facility] for observation however developed worsening respiratory status with increased secretions and inability to protect own airway and was subsequently intubated and transferred to [facility] for neurology services. Patient received a 5-day [...] mg 05/21/23 14:25 Bisacodyl 10 Mg Supp.Rect SC 05/20/24 14:24 DAILY PRN Constipation Docusate Sodium 100 mg 05/21/23 14:25 Docusate 100 Mg Capsule PO 05/20/24 14:24 BID PRN Constipation Docusate Sodium 283 mg 05/21/23 14:25 Docusate Enema 283 Mg/5 Ml Enema SC 05/20/24 14:24 DAILY PRN Constipation Fish Oil 1,000 mg 05/21/23 21:00 06/05/23 08:04 Riverview-3/Fish Oil 1,000 Mg Capsule PO 05/20/24 20:59 [...] 08:59 1 packet DAILY DORI Administration Pyridostigmine Golf 60 mg 05/21/23 18:00 06/05/23 08:03 Pyridostigmine Golf 60 Mg Tablet PO 05/20/24 17:59 60 [...] secondary to myasthenic crisis. Initially admitted to [facility] later transferred to [facility] for neurology services. Had to be intubated [...] equipment to enhance the patient's a functional mandaeism Ensure adequate nutrition and hydration Sleep: No concerns. Pain: Continue current regimen Discharge planning: Hopefully home with his end of week/early next week. Plan: I completed a substantive portion of this encounter, the medical decision making portion of this note in its entirety, including Allied health note review, nursing note review, independent beauty consultant note review, discussion with nursing and case management, and more than 50% of my time was spent on counseling and coordination of care, time spent 25 minutes Patient was personally seen by me, Dr. Grover, on the day of encounter, reviewed the history and the relevant portions of the chart, including current orders, allied health and independent beauty consultant notes, labs/imaging and performed garcia elements of exam and I formulated the plan of care and facilitated the medical decision making. Documented By: Silvestre Grover MD 06/05/23 1316 Signed By: <Electronically signed by Silvestre Grover MD> 06/06/23 1130 [facility] Work Phone: 1(779) 803-734110-16-2023 Progress note Author Silvestre Grover [facility] June 05, 2023 11:41am Note Date/Time June 05, 2023 1 1:41am [facility] [address] [place] [address] Physiatry(Rehab) Progress Note Signed Patient: Taurus Garcia MR#: [id number] : 1945 Acct:[id number] Age/Sex: 77 / M Adm Date: 3 Loc: Room: [address] [place] [address] Type: ADM IN Attending Dr: Silvestre Grover MD Copies to: ~ Date of Service: 06/02/2023 Subjective Subjective Narrative: Mr. Garcia is a 77 year old male with past medical history of myasthenia gravis,hypertension, A-fib anticoagulated with Eliquis, PE, CKD, obstructive sleep apnea on BiPAP, who presents to acute inpatient rehab with functional impairments due to MG crisis. Patient presented to [facility] on 05/11/2023 with complaints of worseninggeneralized weakness over the course of several days. He was found to be mildlyhypoxic. Also complaining of urinary symptoms. Initially admitted to [facility] for observation however developed worsening respiratory status with increased secretions and inability to protect own airway and was subsequently intubated and transferred to [facility] for neurology services. Patient received a 5-day [...] mg 05/21/23 14:25 Bisacodyl 10 Mg Supp.Rect SC 05/20/24 14:24 DAILY PRN Constipation Docusate Sodium 100 mg 05/21/23 14:25 Docusate 100 Mg Capsule PO 05/20/24 14:24 BID PRN Constipation Docusate Sodium 283 mg 05/21/23 14:25 Docusate Enema 283 Mg/5 Ml Enema SC 05/20/24 14:24 DAILY PRN Constipation Fish Oil 1,000 mg 05/21/23 21:00 06/05/23 08:04 Riverview-3/Fish Oil 1,000 Mg Capsule PO 05/20/24 20:59 [...] 08:59 1 packet DAILY DORI Administration Pyridostigmine Golf 60 mg 05/21/23 18:00 06/05/23 08:03 Pyridostigmine Golf 60 Mg Tablet PO 05/20/24 17:59 60 [...] secondary to myasthenic crisis. Initially admitted to [facility] later transferred to [facility] for neurology services. Had to be intubated [...] equipment to enhance the patient's a functional mandaeism Ensure adequate nutrition and hydration Sleep: No concerns. Pain: Continue current regimen Discharge planning: Hopefully home with his end of next week. Plan: I completed a substantive portion of this encounter, the medical decision making portion of this note in its entirety, including Allied health note review, nursing note review, independent beauty consultant note review, discussion with nursing and case management, and more than 50% of my time was spent on counseling and coordination of care, time spent 25 minutes Patient was personally seen by me, Dr. Grover, on the day of encounter, reviewed the history and the relevant portions of the chart, including current orders, allied health and independent beauty consultant notes, labs/imaging and performed garcia elements of exam and I formulated the plan of care and facilitated the medical decision making. Documented By: Silvestre Grover MD 06/05/23 1139 Signed By: <Electronically signed by Silvestre Grover MD> 06/05/23 1141 [facility] Work Phone: 1(216) 926-916310-14-2023 Progress note Author Fidel Bennett [facility] June 03, 2023 3:02pm Note Date/Time June 03, 2023 3 :02pm [facility] [address] [place] [address] Physiatry(Rehab) Progress Note Signed Patient: Taurus Garcia MR#: [id number] : 1945 Acct:[id number] Age/Sex: 77 / M Adm Date: 3 Loc: Room: 3Q9813-4 Type: ADM IN Attending Dr: Silvestre Grover MD Copies to: ~ Date of Service: 06/03/2023 Subjective Subjective Narrative: Mr. Garcia is a 77 year old male with past medical history of myasthenia gravis,hypertension, A-fib anticoagulated with Eliquis, PE, CKD, obstructive sleep apnea on BiPAP, who presents to acute inpatient rehab with functional impairments due to MG crisis. Patient presented to [facility] on 05/11/2023 with complaints of worseninggeneralized weakness over the course of several days. He was found to be mildlyhypoxic. Also complaining of urinary symptoms. Initially admitted to [facility] for observation however developed worsening respiratory status with increased secretions and inability to protect own airway and was subsequently intubated and transferred to [facility] for neurology services. Patient received a 5-day [...] mg 05/21/23 14:25 Bisacodyl 10 Mg Supp.Rect SC 05/20/24 14:24 DAILY PRN Constipation Docusate Sodium 100 mg 05/21/23 14:25 Docusate 100 Mg Capsule PO 05/20/24 14:24 BID PRN Constipation Docusate Sodium 283 mg 05/21/23 14:25 Docusate Enema 283 Mg/5 Ml Enema SC 05/20/24 14:24 DAILY PRN Constipation Fish Oil 1,000 mg 05/21/23 21:00 06/03/23 09:45 Riverview-3/Fish Oil 1,000 Mg Capsule PO 05/20/24 20:59 [...] 08:59 1 packet DAILY DORI Administration Pyridostigmine Golf 60 mg 05/21/23 18:00 06/03/23 14:48 Pyridostigmine Golf 60 Mg Tablet PO 05/20/24 17:59 60 [...] secondary to myasthenic crisis. Initially admitted to [facility] later transferred to [facility] for neurology services. Had to be intubated [...] equipment to enhance the patient's a functional mandaeism Ensure adequate nutrition and hydration Sleep: No concerns. Pain: Continue current regimen Discharge planning: Hopefully home with his end of next week. Plan: I completed a substantive portion of this encounter, the medical decision making portion of this note in its entirety, including Allied health note review, nursing note review, independent beauty consultant note review, discussion with nursing and case management, and more than 50% of my time was spent on counseling and coordination of care, time spent 25 minutes Patient was personally seen by me, Dr. Bennett, on the day of encounter, reviewed the history and the relevant portions of the chart, including current orders, allied health and independent beauty consultant notes, labs/imaging and performed garcia elements of exam and I formulated the plan of care and facilitated the medical decision making. Documented By: Fidel Bennett MD 1501 Signed By: <Electronically signed by Fidel Bennett MD> 06/03/23 1502 [facility] Work Phone: 1(443) 831-840310-13-2023 Progress note Author Silvestre Grover [facility] June 02, 2023 10:48am Note Date/Time June 01, 2023 1 :12pm [facility] [address] [place] [address] Physiatry(Rehab) Progress Note Signed Patient: Taruus Garcia MR#: [id number] : 1945 Acct:[id number] Age/Sex: 77 / M Adm Date: 3 Loc: Room: 0P4624-7 Type: ADM IN Attending Dr: Silvestre Grover MD Copies to: ~ <Antonia Grier APRN - Last Filed: 06/01/23 13:12> Date of Service: 06/01/2023 Subjective <Antonia Grier APRN - Last Filed: 06/01/23 13:12> Subjective Narrative: Mr. Garcia is a 77 year old male with past medical history of myasthenia gravis,hypertension, A-fib anticoagulated with Eliquis, PE, CKD, obstructive sleep apnea on BiPAP, who presents to acute inpatient rehab with functional impairments due to MG crisis. Patient presented to [facility] on 05/11/2023 with complaints of worseninggeneralized weakness over the course of several days. He was found to be mildlyhypoxic. Also complaining of urinary symptoms. Initially admitted to [facility] for observation however developed worsening respiratory status with increased secretions and inability to protect own airway and was subsequently intubated and transferred to [facility] for neurology services. Patient received a 5-day [...] more active in therapy. This morning he [id number]+42+90 feet with a rolling walker with wheelchair [...] mg 05/21/23 14:25 Bisacodyl 10 Mg Supp.Rect SC 05/20/24 14:24 DAILY PRN Constipation Docusate Sodium 100 mg 05/21/23 14:25 Docusate 100 Mg Capsule PO 05/20/24 14:24 BID PRN Constipation Docusate Sodium 283 mg 05/21/23 14:25 Docusate Enema 283 Mg/5 Ml Enema SC 05/20/24 14:24 DAILY PRN Constipation Fish Oil 1,000 mg 05/21/23 21:00 06/01/23 10:05 Riverview-3/Fish Oil 1,000 Mg Capsule PO 05/20/24 20:59 [...] 08:59 1 packet DAILY DORI Administration Pyridostigmine Golf 60 mg 05/21/23 18:00 06/01/23 10:05 Pyridostigmine Golf 60 Mg Tablet PO 05/20/24 17:59 60 mg QID DOIR Administration Saccharomyces Boulardii 250 mg 05/30/23 21:00 [...] tab DAILY DORI Administration Assessment/Plan <Antonia Grier, EVENT COORDINATOR - Last Filed: 06/01/23 13:12> Assessment/Plan (1) [...] secondary to myasthenic crisis. Initially admitted to [facility] later transferred to [facility] for neurology services. Had to be intubated [...] equipment to enhance the patient's a functional mandaeism Ensure adequate nutrition and hydration Sleep: No concerns. Pain: Continue current regimen Discharge planning: Hopefully home with his end of next week. I spent greater than 15 minutes for services, including prsp-pl-rnis encounter with the patient, discussion of the case, plan of care, and exam; and lsfqzmr-oo-rwke activities, such as reviewing pertinent independent beauty consultant documentation, recent therapy notes, laboratory and radiology studies, and discussion of case with care team including physician, nursing, case manager, and therapists. More than 50 [...] chart, including current orders, allied health and independent beauty consultant notes, labs/imaging and plan of care as above. Documented By: Antonia Grier APRN 06/01/23 1 304 Signed By: <Electronically signed by ZACH Grier> 06/01/23 1312 <Electronically signed by Silvestre Gorver MD> 06/02/23 1045 [facility] Work Phone: 1([phone]) 391-459210-13-2023 Progress note Author Meera Javier [facility] June 02, 2023 8:21am Note Date/Time May 31, 2023 2 :26pm [facility] [address] [place] [address] Hospitalist Progress Note Signed Patient: Taurus Garcia MR#: [id number] : 1945 Acct:[id number] Age/Sex: 77 / M Adm Date: 3 Loc: Room: [address] [place] [address] Type: ADM IN Attending Dr: Silvestre Grover [...] mg 05/21/23 14:25 Bisacodyl 10 Mg Supp.Rect SC 05/20/24 14:24 DAILY PRN Constipation Docusate Sodium 100 mg 05/21/23 14:25 Docusate 100 Mg Capsule PO 05/20/24 14:24 BID PRN Constipation Docusate Sodium 283 mg 05/21/23 14:25 Docusate Enema 283 Mg/5 Ml Enema SC 05/20/24 14:24 DAILY PRN Constipation Fish Oil 1,000 mg 05/21/23 21:00 05/31/23 07:49 Riverview-3/Fish Oil 1,000 Mg Capsule PO 05/20/24 20:59 [...] Packet PO 05/31/24 08:59 DAILY DORI Pyridostigmine Golf 60 mg 05/21/23 18:00 05/31/23 14:13 Pyridostigmine Golf 60 Mg Tablet PO 05/20/24 17:59 60 [...] pulmonary embolism?apixaban 3. HLD? atorvastatin Documented By: Meera Javier, NAZANIN 3 1125 Signed By: <Electronically signed by ANP-BC Meera Javier> 06/02/23 0821 [facility] Work Phone: 1([phone]) 590-779510-11-2023 Progress note Author Silvestre Grover [facility] May 31, 2023 10:21am Note Date/Time May 31, 2023 1 0:17am [facility] [address] [place] [address] Physiatry(Rehab) Progress Note Signed Patient: Taurus Garcia MR#: [id number] : 1945 Acct:[id number] Age/Sex: 77 / M Adm Date: 3 Loc: 5T Room: [address] [place] [address] Type: ADM IN Attending Dr: Silvestre Grover MD Copies to: ~ Date of Service: 05/31/2023 Subjective Subjective Narrative: Mr. Garcia is a 77 year old male with past medical history of myasthenia gravis,hypertension, A-fib anticoagulated with Eliquis, PE, CKD, obstructive sleep apnea on BiPAP, who presents to acute inpatient rehab with functional impairments due to MG crisis. Patient presented to [facility] on 05/11/2023 with complaints of worseninggeneralized weakness over the course of several days. He was found to be mildlyhypoxic. Also complaining of urinary symptoms. Initially admitted to [facility] for observation however developed worsening respiratory status with increased secretions and inability to protect own airway and was subsequently intubated and transferred to [facility] for neurology services. Patient received a 5-day [...] mg 05/21/23 14:25 Bisacodyl 10 Mg Supp.Rect SC 05/20/24 14:24 DAILY PRN Constipation Docusate Sodium 100 mg 05/21/23 14:25 Docusate 100 Mg Capsule PO 05/20/24 14:24 BID PRN Constipation Docusate Sodium 283 mg 05/21/23 14:25 Docusate Enema 283 Mg/5 Ml Enema SC 05/20/24 14:24 DAILY PRN Constipation Fish Oil 1,000 mg 05/21/23 21:00 05/31/23 07:49 Riverview-3/Fish Oil 1,000 Mg Capsule PO 05/20/24 20:59 [...] 08:59 10 mg DAILY DORI Administration Pyridostigmine Golf 60 mg 05/21/23 18:00 05/31/23 07:50 Pyridostigmine Golf 60 Mg Tablet PO 05/20/24 17:59 60 [...] secondary to myasthenic crisis. Initially admitted to [facility] later transferred to [facility] for neurology services. Had to be intubated [...] equipment to enhance the patient's a functional mandaeism Ensure adequate nutrition and hydration Sleep: No concerns. Pain: Continue current regimen Discharge planning: Hopefully home with his end of next week. Plan: I completed a substantive portion of this encounter, the medical decision making portion of this note in its entirety, including Allied health note review, nursing note review, independent beauty consultant note review, discussion with nursing and case management, and more than 50% of my time was spent on counseling and coordination of care, time spent 25 minutes Patient was personally seen by me, Dr. Grover, on the day of encounter, reviewed the history and the relevant portions of the chart, including current orders, allied health and independent beauty consultant notes, labs/imaging and performed garcia elements of exam and I formulated the plan of care and facilitated the medical decision making. Documented By: Silvestre Grover MD 05/31/23 1017 Signed By: <Electronically signed by Silvestre Grover MD> 05/31/23 1021 [facility] Work Phone: 1(474) 989-525410-10-2023 Progress note Author Silvestre Grover [facility] May 30, 2023 12:01pm Note Date/Time May 30, 2023 1 2:01pm [facility] [address] [place] [address] Physiatry(Rehab) Progress Note Signed Patient: Taurus Garcia MR#: [id number] : 1945 Acct:[id number] Age/Sex: 77 / M Adm Date: 3 Loc: Room: [address] [place] [address] Type: ADM IN Attending Dr: Silvestre Grover MD Copies to: ~ Date of Service: 05/30/2023 Subjective Subjective Narrative: Mr. Garcia is a 77 year old male with past medical history of myasthenia gravis,hypertension, A-fib anticoagulated with Eliquis, PE, CKD, obstructive sleep apnea on BiPAP, who presents to acute inpatient rehab with functional impairments due to MG crisis. Patient presented to [facility] on 05/11/2023 with complaints of worseninggeneralized weakness over the course of several days. He was found to be mildlyhypoxic. Also complaining of urinary symptoms. Initially admitted to [facility] for observation however developed worsening respiratory status with increased secretions and inability to protect own airway and was subsequently intubated and transferred to [facility] for neurology services. Patient received a 5-day [...] % (Auto) 51.5 Lymph % (Auto) 29.7 Luce % (Auto) 14.8 Eos % (Auto) 3.8 Baso % (Auto) 0.2 Nucleat RBC Rel Count 0.2 Neut # (Auto) 2.9 Lymph # (Auto) 1.7 Luce # (Auto) 0.8 Eos # (Auto) 0.2 [...] mg 05/21/23 14:25 Bisacodyl 10 Mg Supp.Rect SC 05/20/24 14:24 DAILY PRN Constipation Docusate Sodium 100 mg 05/21/23 14:25 Docusate 100 Mg Capsule PO 05/20/24 14:24 BID PRN Constipation Docusate Sodium 283 mg 05/21/23 14:25 Docusate Enema 283 Mg/5 Ml Enema SC 05/20/24 14:24 DAILY PRN Constipation Fish Oil 1,000 mg 05/21/23 21:00 05/30/23 08:30 Riverview-3/Fish Oil 1,000 Mg Capsule PO 05/20/24 20:59 [...] 08:59 10 mg DAILY DORI Administration Pyridostigmine Golf 60 mg 05/21/23 18:00 05/30/23 08:30 Pyridostigmine Golf 60 Mg Tablet PO 05/20/24 17:59 60 [...] secondary to myasthenic crisis. Initially admitted to [facility] later transferred to [facility] for neurology services. Had to be intubated [...] equipment to enhance the patient's a functional mandaeism Ensure adequate nutrition and hydration Sleep: No concerns. Pain: Continue current regimen Discharge planning: Hopefully home with his end of next week. Plan: I completed a substantive portion of this encounter, the medical decision making portion of this note in its entirety, including Allied health note review, nursing note review, independent beauty consultant note review, discussion with nursing and case management, and more than 50% of my time was spent on counseling and coordination of care, time spent 25 minutes Patient was personally seen by me, Dr. Grover, on the day of encounter, reviewed the history and the relevant portions of the chart, including current orders, allied health and independent beauty consultant notes, labs/imaging and performed garcia elements of exam and I formulated the plan of care and facilitated the medical decision making. Documented By: Silvestre Grover MD 05/30/23 1154 Signed By: <Electronically signed by Silvestre Grover MD> 05/30/23 120 [facility] Work Phone: 1(163) 170-509310-09-2023 Progress note Author Silvestre Grover [facility] May 29, 2023 1:20pm Note Date/Time May 29, 2023 11 :42am [facility] [address] [place] [address] Physiatry(Rehab) Progress Note Signed Patient: Taurus Garcia MR#: [id number] : 1945 Acct:[id number] Age/Sex: 77 / M Adm Date: 3 Loc: Room: 1V6063-8 Type: ADM IN Attending Dr: Silvestre Grover [...] due to MG crisis. Patient presented to [facility] on 05/11/2023 with complaints of worseninggeneralized weakness over the course of several days. He was found to be mildlyhypoxic. Also complaining of urinary symptoms. Initially admitted to [facility] for observation however developed worsening respiratory status with increased secretions and inability to protect own airway and was subsequently intubated and transferred to [facility] for neurology services. Patient received a 5-day [...] Objective <Antonia Grier APRN - Last Filed: 05/29/23 11:42> Labs 05/22/23 [...] mg 05/21/23 14:25 Bisacodyl 10 Mg Supp.Rect SC 05/20/24 14:24 DAILY PRN Constipation Docusate Sodium 100 mg 05/21/23 14:25 Docusate 100 Mg Capsule PO 05/20/24 14:24 BID PRN Constipation Docusate Sodium 283 mg 05/21/23 14:25 Docusate Enema 283 Mg/5 Ml Enema SC 05/20/24 14:24 DAILY PRN Constipation Fish Oil 1,000 mg 05/21/23 21:00 05/29/23 08:28 Riverview-3/Fish Oil 1,000 Mg Capsule PO 05/20/24 20:59 [...] 08:59 10 mg DAILY DORI Administration Pyridostigmine Golf 60 mg 05/21/23 18:00 05/29/23 08:29 Pyridostigmine Golf 60 Mg Tablet PO 05/20/24 17:59 60 mg QID DORI Administration Sennosides 2 tab 05/22/23 12:00 Sennosides 8.6 Mg Tablet PO 05/21/24 11:59 DAILY@12 PRN If no BM in 2 days Triamterene/Hydrochlorothiazide 1 tab 05/22/23 09:00 05/29/23 08:28 Triamterene/Hctz 37.5-25mg 1 Tab Tablet PO 05/21/24 08:59 1 tab DAILY DORI Administration Assessment/Plan <Antonia Grier, EVENT COORDINATOR - Last Filed: 05/29/23 11:42> Assessment/Plan (1) [...] secondary to myasthenic crisis. Initially admitted to [facility] later transferred to [facility] for neurology services. Had to be intubated [...] equipment to enhance the patient's a functional mandaeism Ensure adequate nutrition and hydration Sleep: No concerns. Pain: Continue current regimen Discharge planning: Hopefully home with his in 3 weeks. I spent greater than 15 minutes for services, including epso-fo-esug encounter with the patient, discussion of the case, plan of care, and exam; and pqxbnms-jh-ancq activities, such as reviewing pertinent independent beauty consultant documentation, recent therapy notes, laboratory and radiology studies, and discussion of case with care team including physician, nursing, case manager, and therapists. More than 50 % of time was spent on patient/family counseling or coordination of care. <Silvestre Grovre MD - Last Filed: 05/29/23 13:20> Assessment/Plan [...] Allied health note review, nursing note review, independent beauty consultant note review, discussion with nursing and case management, and more than 50% of my time was spent on counseling and coordination of care, time spent 25 minutes Patient was personally seen by me, Dr. Grover, on the day of encounter, reviewed the history and the relevant portions of the chart, including current orders, allied health and independent beauty consultant notes, labs/imaging and performed garcia elements of exam and I formulated the plan of care and facilitated the medical decision making. Discontinue harrell as mobility improves. Making good functional progress. Documented By: Antonia Grier APRN 05/29/23 1 133 Signed By: <Electronically signed by ZACH Grier> 05/29/23 1142 <Electronically signed by Silvestre Grover MD> 05/29/23 9790 [facility] Work Phone: 1(527) 694-747310-06-2023 Progress note Author Silvestre Grover [facility] May 26, 2023 3:42pm Note Date/Time May 25, 2023 11 :38am [facility] [address] [place] [address] Physiatry(Rehab) Progress Note Signed Patient: Taurus Garcia MR#: [id number] : 1945 Acct:[id number] Age/Sex: 77 / M Adm Date: 3 Loc: 5T Room: 3F2519-1 Type: ADM IN Attending Dr: Silvestre Grover MD Copies to: ~ <Antonia Grier APRN - Last Filed: 05/25/23 11:50> Date of Service: 05/25/2023 Subjective <Antonia Grier APRN - Last Filed: 05/25/23 11:50> Subjective Narrative: Mr. Garcia is a 77 year old male with past medical history of myasthenia gravis,hypertension, A-fib anticoagulated with Eliquis, PE, CKD, obstructive sleep apnea on BiPAP, who presents to acute inpatient rehab with functional impairments due to MG crisis. Patient presented to [facility] on 05/11/2023 with complaints of worseninggeneralized weakness over the course of several days. He was found to be mildlyhypoxic. Also complaining of urinary symptoms. Initially admitted to [facility] for observation however developed worsening respiratory status with increased secretions and inability to protect own airway and was subsequently intubated and transferred to [facility] for neurology services. Patient received a 5-day [...] Objective <Antonia Grier APRN - Last Filed: 05/25/23 11:50> Labs 05/22/23 [...] mg 05/21/23 14:25 Bisacodyl 10 Mg Supp.Rect SC 05/20/24 14:24 DAILY PRN Constipation Docusate Sodium 100 mg 05/21/23 14:25 Docusate 100 Mg Capsule PO 05/20/24 14:24 BID PRN Constipation Docusate Sodium 283 mg 05/21/23 14:25 Docusate Enema 283 Mg/5 Ml Enema SC 05/20/24 14:24 DAILY PRN Constipation Fish Oil 1,000 mg 05/21/23 21:00 05/25/23 09:34 Riverview-3/Fish Oil 1,000 Mg Capsule PO 05/20/24 20:59 [...] 08:59 10 mg DAILY DORI Administration Pyridostigmine Golf 60 mg 05/21/23 18:00 05/25/23 09:27 Pyridostigmine Golf 60 Mg Tablet PO 05/20/24 17:59 60 mg QID DORI Administration Sennosides 2 tab 05/22/23 12:00 Sennosides 8.6 Mg Tablet PO 05/21/24 11:59 DAILY@12 PRN If no BM in 2 days Triamterene/Hydrochlorothiazide 1 tab 05/22/23 09:00 05/25/23 09:27 Triamterene/Hctz 37.5-25mg 1 Tab Tablet PO 05/21/24 08:59 1 tab DAILY DORI Administration Assessment/Plan <Antonia Grier, EVENT COORDINATOR - Last Filed: 05/25/23 11:50> Assessment/Plan (1) [...] secondary to myasthenic crisis. Initially admitted to [facility] later transferred to [facility] for neurology services. Had to be intubated [...] equipment to enhance the patient's a functional mandaeism Ensure adequate nutrition and hydration Sleep: No concerns. Pain: Continue current regimen Discharge planning: Hopefully home with his in 3 weeks. I spent greater than 15 minutes for services, including whfv-wn-jcre encounter with the patient, discussion of the case, plan of care, and exam; and zzimily-sd-lsyj activities, such as reviewing pertinent independent beauty consultant documentation, recent therapy notes, laboratory and radiology studies, and discussion of case with care team including physician, nursing, case manager, and therapists. More than 50 [...] Allied health note review, nursing note review, independent beauty consultant note review, discussion with nursing and case management, and more than 50% of my time was spent on counseling and coordination of care, time spent 25 minutes Patient was personally seen by me, Dr. Grover, on the day of encounter, reviewed the history and the relevant portions of the chart, including current orders, allied health and independent beauty consultant notes, labs/imaging and performed garcia elements of exam and I formulated the plan of care and facilitated the medical decision making. Documented By: Antonia Grier APRN 05/25/23 1 136 Signed By: <Electronically signed by ZACH Grier> 05/25/23 1150 <Electronically signed by Silvestre Grover MD> 05/26/23 9881 [facility] Work Phone: 1(379) 282-723010-05-2023 Progress note Author Silvestre Grover [facility] May 25, 2023 8:34am Note Date/Time May 24, 2023 1: 11pm [facility] [address] [place] [address] Physiatry(Rehab) Progress Note Signed Patient: Taurus Garcia MR#: [id number] : 1945 Acct:[id number] Age/Sex: 77 / M Adm Date: 3 Loc: 5T Room: [id number] Type: ADM IN Attending Dr: Silvestre Grover MD Copies to: ~ Date of Service: 05/24/2023 Subjective Subjective Narrative: Mr. Garcia is a 77 year old male with past medical history of myasthenia gravis,hypertension, A-fib anticoagulated with Eliquis, PE, CKD, obstructive sleep apnea on BiPAP, who presents to acute inpatient rehab with functional impairments due to MG crisis. Patient presented to [facility] on 05/11/2023 with complaints of worseninggeneralized weakness over the course of several days. He was found to be mildlyhypoxic. Also complaining of urinary symptoms. Initially admitted to [facility] for observation however developed worsening respiratory status with increased secretions and inability to protect own airway and was subsequently intubated and transferred to [facility] for neurology services. Patient received a 5-day [...] Q12H DORI Administration Atorvastatin Calcium 20 mg 10/01/23 22:00 05/23/23 20:20 Atorvastatin 20 Mg Tablet PO 05/20/24 21:59 20 mg HS DORI Administration Bisacodyl 10 mg 05/21/23 14:25 Bisacodyl 10 Mg Supp.Rect SC 05/20/24 14:24 DAILY PRN Constipation Docusate Sodium 100 mg 05/21/23 14:25 Docusate 100 Mg Capsule PO 05/20/24 14:24 BID PRN Constipation Docusate Sodium 283 mg 05/21/23 14:25 Docusate Enema 283 Mg/5 Ml Enema SC 05/20/24 14:24 DAILY PRN Constipation Fish Oil 1,000 mg 05/21/23 21:00 05/24/23 08:33 Riverview-3/Fish Oil 1,000 Mg Capsule PO 05/20/24 20:59 [...] 08:59 10 mg DAILY DORI Administration Pyridostigmine Golf 60 mg 05/21/23 18:00 05/24/23 08:33 Pyridostigmine Golf 60 Mg Tablet PO 05/20/24 17:59 60 [...] secondary to myasthenic crisis. Initially admitted to [facility] later transferred to [facility] for neurology services. Had to be intubated [...] equipment to enhance the patient's a functional mandaeism Ensure adequate nutrition and hydration Sleep: No concerns. Pain: Continue current regimen Discharge planning: Hopefully home with his in 3 weeks. Plan: I completed a substantive portion of this encounter, the medical decision making portion of this note in its entirety, including Allied health note review, nursing note review, independent beauty consultant note review, discussion with nursing and case management, and more than 50% of my time was spent on counseling and coordination of care, time spent 20 minutes Patient was personally seen by me, Dr. Grover, on the day of encounter, reviewed the history and the relevant portions of the chart, including current orders, allied health and independent beauty consultant notes, labs/imaging and performed garcia elements of exam and I formulated the plan of care and facilitated the medical decision making. Documented By: Silvestre Grover MD 05/24/23 1310 Signed By: <Electronically signed by Silvestre Grover MD> 05/25/23 0834 [facility] Work Phone: [phone]) 703-793510-03-2023 Consult note Author Jarret Garza [facility] May 23, 2023 2:28pm Note Date/Time May 22, 2023 4: 54pm [facility] [address] [place] [address] Hospitalist Consult Note Signed Patient: Taurus Garcia MR#: [id number] : 1945 Acct:[id number] Age/Sex: 77 / M Adm Date: 3 Loc: Room: [address] [place] [address] Type: ADM IN Attending Dr: Silvestre Grover MD Copies to: MD Silvestre Gonsalves II, MD Linda Obika, ZACH Garza MD~ HPI DATE OF CONSULTATION: 05/22/23 REQUESTING PROVIDER: Silvestre Grover Consult Narrative Reason for Consult: HTN, HLD, myasthenia gravis, CKD, PE HPI: Patient is a 77M with a PMHx of HTN, HLD, Myasthenia Gravis (Dx 2017), CKD, PE(On Eliquis) who was admitted to [facility] 05/09 for generalized weakness and was also found to be mildly hypoxic. He was intubated there then transferred to [facility] for evaluation and treatment of suspected [...] negative unless noted in the HPI below [facility] Source: Old Records Reviewed Medical History Acute [...] mg PO DAILY 12/27/17 [History Confirmed 05/21/23] fafejmqa-gko-jmdih acid 0.4 mg-lycopene 300 mcg-lutein 250 mcg [...] mg 05/21/23 14:25 Bisacodyl 10 Mg Supp.Rect SC 05/20/24 14:24 DAILY PRN Constipation Docusate Sodium 100 mg 05/21/23 14:25 Docusate 100 Mg Capsule PO 05/20/24 14:24 BID PRN Constipation Docusate Sodium 283 mg 05/21/23 14:25 Docusate Enema 283 Mg/5 Ml Enema SC 05/20/24 14:24 DAILY PRN Constipation Fish Oil 1,000 mg 05/21/23 21:00 05/22/23 08:58 Riverview-3/Fish Oil 1,000 Mg Capsule PO 05/20/24 20:59 [...] 08:59 10 mg DAILY DORI Administration Pyridostigmine Golf 60 mg 05/21/23 18:00 05/22/23 14:40 Pyridostigmine Golf 60 Mg Tablet PO 05/20/24 17:59 60 [...] Creatinine Clear 100.28, Sodium 141, Potassium 3.7, [id number], Carbon Dioxide 30.8, Anion Gap 7.9, BUN [...] % (Auto) 63.1, Lymph % (Auto) 20.4, Luce % (Auto) 10.8, Eos % (Auto) 5.4, Baso % (Auto) 0.3, Nucleat RBC Rel Count 0.1, Neut # (Auto) 4.6, Lymph # (Auto) 1.5, Luce # (Auto) 0.8, Eos # (Auto) 0.4, [...] <Electronically signed by Jarret Garza MD> 05/23/23 6804 [facility] Work Phone: 1(709) 404-672910-02-2023 History and physical note Author Silvestre Grover [facility] May 22, 2023 3:50pm Note Date/Time May 22, 2023 10 :42am [facility] [address] [place] [address] Physiatry (Rehab) H&P Signed Patient: Taurus Garcia MR#: [id number] : 1945 Acct:[id number] Age/Sex: 77 / M Adm Date: 3 Loc: Room: 5T5036-0 Type: ADM IN Attending Dr: Silvestre Grover MD Copies to: MD Antonia Gonsalves II, APRN Joseph Riley, MD~ <Antonia Grier APRN - Last Filed: [...] due to MG crisis. Patient presented to [facility] on 05/11/2023 with complaints of worseninggeneralized weakness over the course of several days. He was found to be mildlyhypoxic. Also complaining of urinary symptoms. Initially admitted to [facility] for observation however developed worsening respiratory status with increased secretions and inability to protect own airway and was subsequently intubated and transferred to [facility] for neurology services. Patient received a 5-day [...] mg PO DAILY 12/27/17 [History Confirmed 05/21/23] jsimuexp-oec-jrdhf acid 0.4 mg-lycopene 300 mcg-lutein 250 mcg [...] Bisacodyl (Bisacodyl 10 Mg Supp.Rect) 10 mg SC DAILY PRN PRN Reason: Constipation Stop: 05/20/24 14:24 Docusate Sodium (Docusate 100 Mg Capsule) 100 mg PO BID PRN PRN Reason: Constipation Stop: 05/20/24 14:24 Docusate Sodium (Docusate Enema 283 Mg/5 Ml Enema) 283 mg SC DAILY PRN PRN Reason: Constipation Stop: 05/20/24 14:24 Fish Oil (Riverview-3/Fish Oil 1,000 Mg Capsule) 1,000 mg PO [...] Admin: 05/22/23 08:58 Dose: 10 mg Pyridostigmine Golf (Pyridostigmine Golf 60 Mg Tablet) 60 mg PO QID [...] % (Auto) 63.1 Lymph % (Auto) 20.4 Luce % (Auto) 10.8 Eos % (Auto) 5.4 Baso % (Auto) 0.3 Nucleat RBC Rel Count 0.1 Neut # (Auto) 4.6 Lymph # (Auto) 1.5 Luce # (Auto) 0.8 Eos # (Auto) 0.4 [...] 3 weeks Expected Discharge Destination: Home Rehabilitation [facility]: 03.8 Primary Diagnosis: Myasthenic crisis To have patient become more independent and to return home. Medical/ Functional Prognosis: Good Anticipated Functional Outcomes/Goals and Interventions: 1.Therapy Functional Outcome/Goal: Anticipate min assist bed mobility Anticipated interventions: Physician management, PT, OT, ROLLER BEARING INSPECTOR, , Dietitian, RehabNursing, Case management 2. Therapy Functional Outcome/Goal: Anticipate standby assist transfers Anticipated interventions: Physician management, PT, OT, ROLLER BEARING INSPECTOR, Case management, Dietitian, Rehab Nursing 3. Therapy Functional Outcome/Goal: Anticipate min assist ambulation Anticipated interventions: Physician management, PT, OT, ROLLER BEARING INSPECTOR Case management, Dietitian, Rehab Nursing 4.Therapy Functional Outcome/Goal: Anticipate min assist self-care Anticipated interventions: Physician management, PT, OT, ROLLER BEARING INSPECTOR, Case management, Dietitian, Rehab Nursing 5.Therapy Functional Outcome/Goal: Anticipate min assist swallowing. Anticipated interventions: Physician management, PT, OT, ROLLER BEARING INSPECTOR, Case management, Dietitian, Rehab Nursing Required Therapy [...] additional therapy on as needed basis. Comments: ROLLER BEARING INSPECTOR to evaluate and treat patient?s cognition, language and communication skills, assess swallow function. Other: Dietitian, Rehab nursing, Wound, P&O, Neuropsychology as needed RATIONALE FOR IRF ADMISSION: Patient has both medical and functional complexities that require 24 hour daily monitoring and intervention from Pediatrician Managing Partner as well as other consulting physicians including internal medicine as well as 24 hour daily accuracy expert nursing - for medical safe / optimal management. Patient requires interdisciplinary therapy team rehabilitation care including OT, PT, ROLLER BEARING INSPECTOR, SW, Psychology, Rehab Nursing, requires and can [...] impairments secondaryto myasthenic crisis. Initially admitted to [facility] later transferred[facility] for neurology services. Had to be intubated [...] equipment to enhance the patient's a functional mandaeism Ensure adequate nutrition and hydration Sleep: No concerns. Pain: Continue current regimen Discharge planning: Hopefully home with his in 10 to 14 days. I spent greater than 45 minutes for services, including qamo-if-vuww encounter with the patient, discussion of the case, plan of care, and exam; and hvkmnrz-gw-cpmv activities, such as reviewing pertinent independent beauty consultant documentation, recent therapy notes, laboratory and radiology studies, and discussion of case with care team including physician, nursing, case manager, and therapists. More than 50 [...] Allied health note review, nursing note review, independent beauty consultant note review, discussion with nursing and case management, and more than 50% of my time was spent on counseling and coordination of care, time spent 70 minutes Patient was personally seen by me, Dr. Grover, on the day of encounter, reviewed the history and the relevant portions of the chart, including current orders, allied health and independent beauty consultant notes, labs/imaging and performed garcia elements of exam and I formulated the plan of care and facilitated the medical decision making. Documented By: Antonia Grier APRN 05/22/23 1 040 Signed By: <Electronically signed by ZACH Grier> 05/22/23 1148 <Electronically signed by Silvestre Grover MD> 05/22/23 9378 [facility] Work Phone: 1(889) 854-766109-30-2023 Progress note Author Suraj Razo [facility] May 20, 2023 8:14am Note Date/Time May 20, 2023 8:10am [facility] [address] [place] [address] Hospitalist Progress Note Signed Patient: Taurus Garcia MR#: [id number] : 1945 Acct:[id number] Age/Sex: 77 / M Adm Date: 3 Loc: Room: [address] [place] [address] Type: ADM IN Attending Dr: Suraj Razo MD Copies to: ~ Date of Service: 05/20/2023 Subjective Subjective Narrative: Assessment And Plan 77M with PMH of HTN, HLD, Myasthenia Gravis (Dx 2016), CKD, PE(On Eliquis) who was admitted to [facility] 05/09 for generalized weakness. He was [...] 08:59 10 mg DAILY DORI Administration Pyridostigmine Golf 60 mg 05/18/23 14:00 05/19/23 21:30 Pyridostigmine Golf 60 Mg Tablet PO 05/17/24 13:59 60 mg QID DORI Administration A&P - Hospitalist Assessment/Plan (1) Acute exacerbation of myasthenia gravis: (2) Acute respiratory failure with hypoxia: (3) CKD (chronic kidney disease) stage 3, GFR 30-59 ml/min: Plan . Documented By: Suraj Razo MD 05/20/23 0809 Signed By: <Electronically signed by Suraj Razo MD> 05/20/2314 [facility] Work Phone: 1(275) 137-150809-29-2023 Progress note Author Suraj Razo [facility] May 19, 2023 1:42pm Note Date/Time May 19, 2023 1:42pm [facility] [address] [place] [address] Hospitalist Progress Note Signed Patient: Taurus Garcia MR#: [id number] : 1945 Acct:[id number] Age/Sex: 77 / M Adm Date: 3 Loc: Room: [address] [place] [address] Type: ADM IN Attending Dr: Suraj Razo MD Copies to: ~ Date of Service: 05/19/2023 Subjective Subjective Narrative: Assessment And Plan 77M with PMH of HTN, HLD, Myasthenia Gravis (Dx 2016), CKD, PE(On Eliquis) who was admitted to [facility] 05/09 for generalized weakness. He was [...] 08:59 10 mg DAILY DORI Administration Pyridostigmine Golf 60 mg 05/18/23 14:00 05/19/23 08:28 Pyridostigmine Golf 60 Mg Tablet PO 09/27/24 13:59 60 mg QID DORI Administration A&P - Hospitalist Assessment/Plan (1) Acute exacerbation of myasthenia gravis: (2) Acute respiratory failure with hypoxia: (3) CKD (chronic kidney disease) stage 3, GFR 30-59 ml/min: Plan . Documented By: Suraj Razo MD 05/19/231339 Signed By: <Electronically signed by Suraj Razo MD> 05/19/23 1342 [facility] Work Phone: 1([phone]) 433-409109-29-2023 Progress note Author Stanley Burt [facility] May 19, 2023 11:15am Note Date/Time May 19, 2023 8:43am [facility] [address] [place] [address] Pulmonology Progress Note Signed Patient: Taurus Garcia MR#: [id number] : 1945 Acct:[id number] Age/Sex: 77 / M Adm Date: 3 Loc: Room: [address] [place] [address] Type: ADM IN Attending Dr: Suraj Razo [...] rehabilitation. Documented By: Stanley Burt MD 3 9324 Signed By: <Electronically signed by MD Stanley Burt> 05/19/23 1119 [facility] Work Phone: 1([phone] 602-297109-29-2023 Progress note Author Silvestre Grover [facility] May 19, 2023 10:51am Note Date/Time May 19, 2023 10:03am [facility] [address] [place] [address] Physiatry(Rehab) Progress Note Signed Patient: Taurus Garcia MR#: [id number] : 1945 Acct:[id number] Age/Sex: 77 / M Adm Date: 3 Loc: Room: [address] [place] [address] Type: ADM IN Attending Dr: Suraj Razo [...] to feel generally weak, he presented to [facility] and was subsequently intubated and transferred [...] % (Auto) 53.7 Lymph % (Auto) 22.1 Luce % (Auto) 10.0 Eos % (Auto) 13.8 Baso % (Auto) 0.4 Nucleat RBC Rel Count 0.2 Neut # (Auto) 2.7 Lymph # (Auto) 1.1 Luce # (Auto) 0.5 Eos # (Auto) 0.7 [...] 08:59 10 mg DAILY DORI Administration Pyridostigmine Golf 60 mg 05/18/23 14:00 05/19/23 08:28 Pyridostigmine Golf 60 Mg Tablet PO 05/17/24 13:59 60 [...] for myasthenic crisis, intubated on admission to [facility], just extubated 05/15, being evaluated for possible [...] Allied health note review, nursing note review, independent beauty consultant note review, discussion with nursing and case management, and more than 50% of my time was spent on counseling and coordination of care, time spent 30 minutes Patient was personally seen by me, Dr. Grover, on the day of encounter, reviewed the history and the relevant portions of the chart, including current orders, allied health and independent beauty consultant notes, labs/imaging and performed garcia elements of exam and I formulated the plan of care and facilitated the medical decision making. Documented By: Silvestre Grover MD 05/19/23 1003 Signed By: <Electronically signed by Silvestre Grover MD> 05/19/23 1051 [facility] Work Phone: [phone]) 503-493609-28-2023 Consult note Author W Kiko [facility] May 18, 2023 6:00pm Note Date/Time May 18, 2023 6:00pm [facility] [address] [place] [address] Cardiology Consult Note Signed Patient: Taurus Garcia MR#: [id number] : 1945 Acct:[id number] Age/Sex: 77 / M Adm Date: 3 Loc: 4C Room: 4M7753-2 Type: ADM IN Attending Dr: Suraj Razo [...] activity Respiratory Respiratory: Reports as per HPI [facility] Medical History Acute exacerbation of myasthenia gravis [...] mg PO DAILY 12/27/17 [History Confirmed 05/10/23] scjjgbad-kqe-njdne acid 0.4 mg-lycopene 300 mcg-lutein 250 mcg [...] x10E3/uL Lymph # (Auto) 1.0 (1.00-4.8) x10E3/uL Luce # (Auto) 0.4 (0.0-0.8) x10E3/uL Eos # (Auto) 0.8 H (0.0-0.45) x10E3/uL Baso # (Auto) 0.0 (0.0-0.2) x10E3/uL Intake and Output 05/18/23 05/18/23 05/18/23 07:59 15:59 23:59 Intake Total 60 / 710 650 / 710 Output Total 2074 Balance -415 / -1365 -950 / -1365 Intake: IV 250 / 250 Amiodarone 450 mg In Dextrose 5 250 / 250 % in [employer] 241 ml @ 0.5 MG/MIN 16.667 mls/hr IV .Q15H [facility] Rx#:[id number] Oral 60 / 460 400 / 460 [...] signed by Pat Hoover DO> 05/18/23 1800 [facility] Work Phone: 1(857) 483-884409-28-2023 Progress note Author Stanley Burt [facility] May 18, 2023 4:48pm Note Date/Time May 18, 2023 8:38am [facility] [address] [place] [address] Pulmonology Progress Note Signed Patient: Taurus Garcia MR#: [id number] : 1945 Acct:[id number] Age/Sex: 77 / M Adm Date: 3 Loc: Room: [address] [place] [address] Type: ADM IN Attending Dr: Suraj Razo [...] signed by MD Stanley Burt> 05/18/23 1648 [facility] Work Phone: 1([phone] Progress note Author Suraj Razo [facility] May 18, 2023 12:58pm Note Date/Time May 18, 2023 12:55pm [facility] [address] [place] [address] Hospitalist Progress Note Signed Patient: Taurus Garcia MR#: [id number] : 1945 Acct:[id number] Age/Sex: 77 / M Adm Date: 3 Loc: Room: [address] [place] [address] Type: ADM IN Attending Dr: Suraj Razo MD Copies to: ~ Date of Service: 05/18/2023 Subjective Subjective Narrative: Assessment And Plan 77M with PMH of HTN, HLD, Myasthenia Gravis (Dx 2016), CKD, PE(On Eliquis) who was admitted to [facility] 05/09 for generalized weakness. He was [...] No Growth 2 Days 05/16/23 10:32 Urine, Sharri Urine Culture - Final No Growth 2 [...] 08:59 10 mg DAILY DORI Administration Pyridostigmine Golf 60 mg 05/18/23 14:00 Pyridostigmine Golf 60 Mg Tablet PO 05/17/24 13:59 QID [facility] A&P - Hospitalist Assessment/Plan (1) Acute exacerbation of myasthenia gravis: (2) Acute respiratory failure with hypoxia: (3) CKD (chronic kidney disease) stage 3, GFR 30-59 ml/min: Plan . Documented By: Suraj Razo MD 05/18/23 1253 Signed By: <Electronically signed by Suraj Razo MD> 05/18/23 1258 [facility] Work Phone: [phone] Progress note Author Jamel Packer [facility] May 17, 2023 2:05pm Note Date/Time May 17, 2023 2:05pm [facility] [address] [place] [address] Neurology Progress Note Signed Patient: Taurus Garcia MR#: [id number] : 1945 Acct:[id number] Age/Sex: 77 / M Adm Date: 3 Loc: Room: [address] [place] [address] Type: ADM IN Attending Dr: Suraj Razo [...] Therapy Recommendations: OT Recommendations OT Recommended Discharge [facility] Facility,LTACH Location OT Recommended Services at Physical Therapy,Occupational Therapy,Speech Discharge Therapy,13/03 Supervision PT Recommendations PT Recommended Discharge [facility] Facility,[facility]ACH Location PT Recommended Services at Physical Therapy,Occupational Therapy Discharge ST Recommendations Level of Supervision 1:1 Feeding Supervision Liquid Consistency [place]-Thick Liquids Recommendation Solid Consistency Pureed Solids Recommendations [...] Status: Acute Documented By: Jamel Packer DO 05/17/23 1402 Signed By: <Electronically signed by Jamel Packer DO> 05/17/23 1405 [facility] Work Phone: [phone]) [phone] Progress note Author Stanley Burt [facility] May 17, 2023 12:50pm Note Date/Time May 17, 2023 12:50pm [facility] [address] [place] [address] Pulmonology Progress Note Signed Patient: Taurus Garcia MR#: [id number] : 1945 Acct:[id number] Age/Sex: 77 / M Adm Date: 3 Loc: Room: [address] [place] [address] Type: ADM IN Attending Dr: Suraj Razo [...] ICU. Documented By: Stanley Burt MD 3 0738 Signed By: <Electronically signed by MD Stanley Burt> 05/17/23 1250 [facility] Work Phone: 1([phone]) [phone] Progress note Author Suraj Razo [facility] May 17, 2023 11:57am Note Date/Time May 17, 2023 11:48am [facility] [address] [place] [address] Hospitalist Progress Note Signed Patient: Taurus Garcia MR#: [id number] : 1945 Acct:[id number] Age/Sex: 77 / M Adm Date: 3 Loc: Room: [address] [place] [address] Type: ADM IN Attending Dr: Suraj Razo MD Copies to: ~ Date of Service: 05/17/2023 Subjective Subjective Narrative: Assessment And Plan 77M with PMH of HTN, HLD, Myasthenia Gravis (Dx 2016), CKD, PE(On Eliquis) who was admitted to [facility] 05/09 for generalized weakness. He was [...] 08:59 10 mg DAILY DORI Administration Pyridostigmine Golf 60 mg 05/15/23 22:00 05/17/23 08:52 Pyridostigmine Golf 60 Mg Tablet NG-TUBE 05/14/24 21:59 60 mg TID DORI Administration A&P - Hospitalist Assessment/Plan (1) Acute exacerbation of myasthenia gravis: (2) Acute respiratory failure with hypoxia: (3) CKD (chronic kidney disease) stage 3, GFR 30-59 ml/min: Plan . Documented By: Suraj Razo MD 05/17/23 1146 Signed By: <Electronically signed by Suraj Razo MD> 05/17/23 1157 [facility] Work Phone: 1([phone] 372-148909-27-2023 Progress note Author Silvestre Grover [facility] May 17, 2023 10:48am Note Date/Time May 17, 2023 10:48am [facility] [address] [place] [address] Physiatry(Rehab) Progress Note Signed Patient: Taurus Garcia MR#: [id number] : 1945 Acct:[id number] Age/Sex: 77 / M Adm Date: 3 Loc: Room: [address] [place] [address] Type: ADM IN Attending Dr: Suraj Razo [...] to feel generally weak, he presented to [facility] and was subsequently intubated and transferred [...] MPV Neut % (Auto) Lymph % (Auto) Luce % (Auto) Eos % (Auto) Baso % (Auto) Nucleat RBC Rel Count Neut # (Auto) Lymph # (Auto) Luce # (Auto) Eos # (Auto) Baso # [...] Color Urine Appearance Urine pH Ur Specific Wright Urine Protein Urine Glucose (UA) Urine Ketones Urine Occult Blood Urine Nitrite Urine Bilirubin Urine Urobilinogen Ur Leukocyte Esterase Urine RBC Urine WBC Ur Squamous Epith Cells Calcium Oxalate Crystal Urine Bacteria Hyaline Casts Urine Yeast 05/16/23 05/16/23 05/16/23 10:32 13:20 16:37 Corrected WBC Uncorrected WBC Count RBC Hgb Hct MCV MCH MCHC RDW Plt Count MPV Neut % (Auto) Lymph % (Auto) Luce % (Auto) Eos % (Auto) Baso % (Auto) Nucleat RBC Rel Count Neut # (Auto) Lymph # (Auto) Luce # (Auto) Eos # (Auto) Baso # (Auto) PHA Creatinine Clear Sodium Potassium Chloride Carbon Dioxide Anion Gap BUN Creatinine Est GFR (CKD-EPI) Glucose POC Glucose 165 POC Glucose Comment Glu2: cleaned meter Calcium Magnesium Total Creatine Kinase 175 Troponin I High Sens TSH 3rd Generation Urine Color Yellow Urine Appearance Clear Urine pH 5.5 Ur Specific Wright 1.026 Urine Protein 30 H Urine Glucose [...] % (Auto) 72.4 Lymph % (Auto) 12.6 Luce % (Auto) 7.6 Eos % (Auto) 7.1 Baso % (Auto) 0.3 Nucleat RBC Rel Count 0.5 Neut # (Auto) 3.2 Lymph # (Auto) 0.6 L Luce # (Auto) 0.3 Eos # (Auto) 0.3 Baso # (Auto) 0.0 PHA Creatinine Clear Sodium Potassium Chloride Carbon Dioxide Anion Gap BUN Creatinine Est GFR (CKD-EPI) Glucose POC Glucose 146 107 POC Glucose Comment Glu2: cleaned meter Calcium Magnesium Total Creatine Kinase Troponin I High Sens TSH 3rd Generation Urine Color Urine Appearance Urine pH Ur Specific Wright Urine Protein Urine Glucose (UA) Urine Ketones Urine Occult Blood Urine Nitrite Urine Bilirubin Urine Urobilinogen Ur Leukocyte Esterase Urine RBC Urine WBC Ur Squamous Epith Cells Calcium Oxalate Crystal Urine Bacteria Hyaline Casts Urine Yeast 05/17/23 04:19 Corrected WBC Uncorrected WBC Count RBC Hgb Hct MCV MCH MCHC RDW Plt Count MPV Neut % (Auto) Lymph % (Auto) Luce % (Auto) Eos % (Auto) Baso % (Auto) Nucleat RBC Rel Count Neut # (Auto) Lymph # (Auto) Luce # (Auto) Eos # (Auto) Baso # [...] Color Urine Appearance Urine pH Ur Specific Wright Urine Protein Urine Glucose (UA) Urine Ketones [...] 08:59 10 mg DAILY DORI Administration Pyridostigmine Golf 60 mg 05/15/23 22:00 05/17/23 08:52 Pyridostigmine Golf 60 Mg Tablet NG-TUBE 05/14/24 21:59 60 [...] for myasthenic crisis, intubated on admission to [facility], just extubated 05/15, being evaluated for possible IRF placement. -Discussed with pulmonology LOOM CHECKER. -At this time remains not medically ready for transition to IRF and cannot tolerate 3 hours of therapy daily. Dependent for all mobility. Limited tolerance. -Hopefully can progress over next several days and be able to tolerate IRF level therapy when medically stable for discharge, family prefers [facility] as backup plan if LTACH not required. -Reviewed Neurology note, does not appear would require transfer to tertiary center at this time. -Will follow daily for updated progress. Plan: I completed a substantive portion of this encounter, the medical decision making portion of this note in its entirety, including Allied health note review, nursing note review, independent beauty consultant note review, discussion with nursing and case management, and more than 50% of my time was spent on counseling and coordination of care, time spent 25 minutes Patient was personally seen by me, Dr. Grover, on the day of encounter, reviewed the history and the relevant portions of the chart, including current orders, allied health and independent beauty consultant notes, labs/imaging and performed garcia elements of exam and I formulated the plan of care and facilitated the medical decision making. Documented By: Silvestre Grover MD 05/17/23 1044 Signed By: <Electronically signed by Silvestre Grover MD> 05/17/23 1048 [facility] Work Phone: 1([phone]) [phone] Consult note Author Silvestre Grover [facility] May 16, 2023 3:19pm Note Date/Time May 16, 2023 2:46pm [facility] [address] [place] [address] Physiatry (Rehab) Consult Note Signed Patient: Taurus Garcia MR#: [id number] : 1945 Acct:[id number] Age/Sex: 77 / M Adm Date: 3 Loc: Room: [address] [place] [address] Type: ADM IN Attending Dr: Suraj Razo [...] to feel generally weak, he presented to [facility] and was subsequently intubated and transferred [...] of motion. Eyes closed most of session. ROLLER BEARING INSPECTOR notes reviewed, cleared for modified diet. Review of Systems Review of Systems All other systems reviewed & are negative unless noted below or in HPI [facility] Medical History Acute exacerbation of myasthenia gravis [...] mg PO DAILY 12/27/17 [History Confirmed 05/10/23] fpgqueet-idt-tswmp acid 0.4 mg-lycopene 300 mcg-lutein 250 mcg [...] MPV Neut % (Auto) Lymph % (Auto) Luce % (Auto) Eos % (Auto) Baso % (Auto) Nucleat RBC Rel Count Neut # (Auto) Lymph # (Auto) Luce # (Auto) Eos # (Auto) Baso # (Auto) Potassium 4.0 POC Glucose 152 146 Magnesium 1.9 Urine Color Urine Appearance Urine pH Ur Specific Wright Urine Protein Urine Glucose (UA) Urine Ketones [...] % (Auto) 82.7 Lymph % (Auto) 7.8 Luce % (Auto) 5.0 Eos % (Auto) 4.2 Baso % (Auto) 0.3 Nucleat RBC Rel Count 0.5 Neut # (Auto) 4.4 Lymph # (Auto) 0.4 L Luce # (Auto) 0.3 Eos # (Auto) 0.2 Baso # (Auto) 0.0 Potassium POC Glucose 100 Magnesium Urine Color Yellow Urine Appearance Clear Urine pH 5.5 Ur Specific Wright 1.026 Urine Protein 30 H Urine Glucose [...] for myasthenic crisis, intubated on admission to [facility], just extubated 05/15, being evaluated for possible [...] when medically stable for discharge, family prefers [facility] as backup plan if LTACH not required. -Reviewed Neurology note, does not appear would require transfer to tertiary center at this time. -Will follow daily for updated progress. Plan: I completed a substantive portion of this encounter, the medical decision makingportion of this note in its entirety, including Allied health note review, nursing note review, independent beauty consultant note review, discussion with nursing and case management, and more than 50% of my time was spent on counseling and coordination of care, time spent 65 minutes Patient was personally seen by me, Dr. Grover, on the day of encounter, reviewed the history and the relevant portions of the chart, including current orders, allied health and independent beauty consultant notes, labs/imaging and performed garcia elements of exam and I formulated the plan of care and facilitated the medical decision making. Documented By: Silvestre Grover MD 05/16/23 1208 Signed By: <Electronically signed by Silvestre Grover MD> 05/16/23 5133 [facility] Work Phone: 1([phone]) 213-508109-26-2023 Progress note Author Jamel Packer [facility] May 16, 2023 2:29pm Note Date/Time May 16, 2023 2:29pm [facility] [address] [place] [address] Neurology Progress Note Signed Patient: Taurus Garcia MR#: [id number] : 1945 Acct:[id number] Age/Sex: 77 / M Adm Date: 3 Loc: Room: [address] [place] [address] Type: ADM IN Attending Dr: Suraj Razo [...] of Supervision 1:1 Feeding Supervision Liquid Consistency [place]-Thick Liquids Recommendation Solid Consistency Pureed Solids Recommendations [...] Acute Documented By: Jamel Packer DO 05/16/23 1417 Signed By: <Electronically signed by Jamel Packer DO> 05/16/23 5854 [facility] Work Phone: 1([phone]) 267-293209-26-2023 Progress note Author Suraj Razo [facility] May 16, 2023 1:53pm Note Date/Time May 16, 2023 1:53pm [facility] [address] [place], [place] [id number] Hospitalist Progress Note Signed Patient: Taurus Garcia MR#: [id number] : 1945 Acct:[id number] Age/Sex: 77 / M Adm Date: 3 Loc: Room: [address] [place] [address] Type: ADM IN Attending Dr: Suraj Razo MD Copies to: ~ Date of Service: 05/16/2023 Subjective Subjective Narrative: Assessment And Plan 77M with PMH of HTN, HLD, Myasthenia Gravis (Dx 2016), CKD, PE(On Eliquis) who was admitted to [facility] 05/09 for generalized weakness. He was [...] 08:59 60 mg DAILY DORI Administration Pyridostigmine Golf 60 mg 05/15/23 22:00 05/16/23 09:25 Pyridostigmine Golf 60 Mg Tablet NG-TUBE 05/14/24 21:59 60 [...] signed by Suraj Razo MD> 05/16/23 1353 [facility] Work Phone: [phone] Progress note Author Stanley Burt [facility] May 16, 2023 11:27am Note Date/Time May 16, 2023 11:27am [facility] [address] [place] [address] Pulmonology Progress Note Signed Patient: Taurus Garcia MR#: [id number] : 1945 Acct:[id number] Age/Sex: 77 / M Adm Date: 3 Loc: Room: [address] [place] [address] Type: ADM IN Attending Dr: Suraj Razo MD Copies to: ~ Date of Service: 05/16/2023 Subjective Subjective Narrative: Patient was extubated yesterday at 1600. Patient had runs of A-fib RVR last night and was started on amiodarone. Patient also had a temperature of 101.7 and was placed back on the [facility] sun to cool. [facility] sun temperature currentlyreads 102.3. Patient is awake [...] secretions. Documented By: Stanley Burt MD 3 0747 Signed By: <Electronically signed by MD Stanley Burt> 05/16/[address] [place] [address] Ctr Work Phone: [phone]) [phone] Progress note Author Jamel Packer [facility] May 15, 2023 1:56pm Note Date/Time May 15, 2023 1:54pm [facility] [address] [place] [address] Neurology Progress Note Signed Patient: Taurus Garcia MR#: [id number] : 1945 Acct:[id number] Age/Sex: 77 / M Adm Date: 3 Loc: Room: [address] [place] [address] Type: ADM IN Attending Dr: Suraj Razo [...] <Electronically signed by Jamel Packer DO> 05/15/23 1356 [facility] Work Phone: [phone]) 204-254009-25-2023 Progress note Author Suraj Razo [facility] May 15, 2023 12:28pm Note Date/Time May 15, 2023 12:25pm [facility] [address] [place] [address] Hospitalist Progress Note Signed Patient: Taurus Garcia MR#: [id number] : 1945 Acct:[id number] Age/Sex: 77 / M Adm Date: 3 Loc: Room: [address] [place] [address] Type: ADM IN Attending Dr: Suraj Razo MD Copies to: ~ Date of Service: 05/15/2023 Subjective Subjective Narrative: Assessment And Plan 77M with PMH of HTN, HLD, Myasthenia Gravis (Dx 2016), CKD, PE(On Eliquis) who was admitted to [facility] 05/09 for generalized weakness. He was [...] 05/10/24 00:22 PROTOCOL PRN Bolus Documentation Pyridostigmine Golf 30 mg 05/14/23 14:00 05/15/23 08:57 Pyridostigmine Golf 60 Mg Tablet NG-TUBE 05/13/24 13:59 30 [...] Plan . Documented By: Suraj Razo MD 05/15/231220 Signed By: <Electronically signed by Suraj Razo MD> 05/15/23 1228 [facility] Work Phone: [phone] Progress note Author Stanley Burt [facility] May 15, 2023 11:32am Note Date/Time May 15, 2023 11:25am [facility] [address] [place] [address] Pulmonology Progress Note Signed Patient: Taurus Garcia MR#: [id number] : 1945 Acct:[id number] Age/Sex: 77 / M Adm Date: 3 Loc: Room: [address] [place] [address] Type: ADM IN Attending Dr: Suraj Razo [...] previous pulmonary embolism who was transferred from [place] with progressive decompensation likely related to myasthenia [...] overload. Documented By: Stanley Burt MD 3 912 Signed By: <Electronically signed by MD Stanley Burt> 05/15/23 113 [facility] Work Phone: 1([phone]) 136-443609-24-2023 Progress note Author Eliezer Newell [facility] May 14, 2023 6:05pm Note Date/Time May 14, 2023 5:59pm [facility] [address] [place] [address] Hospitalist Progress Note Signed Patient: Taurus Garcia MR#: [id number] : 1945 Acct:[id number] Age/Sex: 77 / M Adm Date: 3 Loc: Room: [address] [place] [address] Type: ADM IN Attending Dr: Eliezer Newell MD Copies to: ~ Date of Service: 05/14/2023 Subjective Subjective Narrative: Assessment And Plan 77M with PMH of HTN, HLD, Myasthenia Gravis (Dx 2017), CKD, PE(On Eliquis) who was admitted to [facility] 05/09 for generalized weakness. He was intubated there then transferred for the evaluation and treatment of suspected acute myasthenia gravis exacerbation. Acute Respiratory Failure due to Myasthenia gravis exacerbation remain on MV with low O2 demand The patient required intubation at [facility] CXR 05/11 shows Continued cardiomegaly and [...] Lactated Ringers IV 05/10/24 01:59 Not Given .[id number] DORI Immune Globulin 30 gm in 300 [...] 05/10/24 00:22 PROTOCOL PRN Bolus Documentation Pyridostigmine Golf 30 mg 05/14/23 14:00 05/14/23 13:41 Pyridostigmine Golf 60 Mg Tablet NG-TUBE 05/13/24 13:59 30 [...] Plan . Documented By: Eliezer Newell MD 05/14/231755 Signed By: <Electronically signed by Eliezer Newell MD> 05/14/23 7530 [facility] Work Phone: [phone]) 514-481909-24-2023 Progress note Author Jamel Packer [facility] May 14, 2023 12:14pm Note Date/Time May 14, 2023 11:10am [facility] [address] [place] [address] Neurology Progress Note Signed Patient: Taurus Garcia MR#: [id number] : 1945 Acct:[id number] Age/Sex: 77 / M Adm Date: 3 Loc: Room: [address] [place] [address] Type: ADM IN Attending Dr: Eliezer Newell [...] <Electronically signed by Jamel Packer DO> 05/14/23 [facility] Work Phone: 1(855) 469-539209-24-2023 Progress note Author Stanley Burt [facility] May 14, 2023 12:02pm Note Date/Time May 14, 2023 9:12am [facility] [address] [place] [address] Pulmonology Progress Note Signed Patient: Taurus Garcia MR#: [id number] : 1945 Acct:[id number] Age/Sex: 77 / M Adm Date: 3 Loc: Room: [address] [place] [address] Type: ADM IN Attending Dr: Eliezer Newell [...] Content 8.4 ABG Base Excess 7.1 H 10//30/5 Assessment/Plan Assessment/Plan (1) Acute respiratory failure with hypoxia: (2) Myasthenic crisis: (3) CKD (chronic kidney disease) stage 3, GFR 30-59 ml/min: (4) Obstructive sleep apnea: Plan Hospital day #4, ventilator day #4 for patient with history of myasthenia gravisas well as prior pulmonary embolism who was transferred from outside hospital ([place]) with progressive decompensation likely related to myasthenia gravis exacerbation. Patient's potassium is stable with patient getting day #4 of intravenous immunoglobulin today. Continue supportive care with patient alreadyon apixaban with nutritional support and stress ulcer prophylaxis. Note that cultures remain negative. Documented By: Stanley Burt MD 3 0910 Signed By: <Electronically signed by MD Stanley Burt> 05/14/23 1200 [facility] Work Phone: 1(801) 344-817109-23-2023 Progress note Author Eliezer Newell [facility] May 13, 2023 6:40pm Note Date/Time May 13, 2023 5:41pm [facility] [address] [place] [address] Hospitalist Progress Note Signed Patient: Taurus Garcia MR#: [id number] : 1945 Acct:[id number] Age/Sex: 77 / M Adm Date: 3 Loc: Room: [address] [place] [address] Type: ADM IN Attending Dr: Eliezer Newell MD Copies to: ~ Date of Service: 05/13/2023 Subjective Subjective Narrative: Assessment And Plan 77M with PMH of HTN, HLD, Myasthenia Gravis (Dx 2016), CKD, PE(On Eliquis) who was admitted to [facility] 05/09 for generalized weakness. He was intubated there then transferred for the evaluation and treatment of suspected acute myasthenia gravis exacerbation. Acute Respiratory Failure due to Myasthenia gravis exacerbation remain on MV with low O2 demand The patient required intubation at [facility] CXR 05/11 shows Continued cardiomegaly and [...] Lactated Ringers IV 05/10/24 01:59 75 mls/hr .[id number] DORI Administration Immune Globulin 30 gm in [...] . Documented By: Eliezer Newell MD 05/13/23 6322 Signed By: <Electronically signed by Eliezer Newell MD> 05/13/23 6095 [facility] Work Phone: 1(609) 494-896609-23-2023 Progress note Author Stanley Burt [facility] May 13, 2023 1:31pm Note Date/Time May 13, 2023 10:36am [facility] [address] [place] [address] Pulmonology Progress Note Signed Patient: Taurus Garcia MR#: [id number] : 1945 Acct:[id number] Age/Sex: 77 / M Adm Date: 3 Loc: Room: [address] [place] [address] Type: ADM IN Attending Dr: Eliezer Newell [...] H 94 L Mechanical Ventilation 30 05/13/23 10:00 05/13/23 10:00 05/13/23 10:00 05/13/23 10:00 05/13/23 10:00 05/13/23 10:00 05/13/23 10:00 Const Nutritional Appearance: obese Orientation: not [...] embolism who was transferred from outside hospital ([place]) with progressive decompensation likely related to myasthenia [...] signed by MD Stanley Burt> 05/13/23 1331 [facility] Work Phone: 1(915) 456-163709-23-2023 Progress note Author Jamel Packer [facility] May 13, 2023 1:04pm Note Date/Time May 13, 2023 1:04pm [facility] [address] [place] [address] Neurology Progress Note Signed Patient: Taurus Garcia MR#: [id number] : 1945 Acct:[id number] Age/Sex: 77 / M Adm Date: 3 Loc: Room: [address] [place] [address] Type: ADM IN Attending Dr: Eliezer Newell [...] [facility] completing his IVIG course. Code(s): G70.01 - Myasthenia gravis with (acute) exacerbation Status: Acute Documented By: Jamel Packer DO 05/13/23 1301 Signed By: <Electronically signed by Jamel Packer DO> 05/13/23 1304 [facility] Work Phone: 1(619) 812-940409-22-2023 Progress note Author Eliezer Newell [facility] May 12, 2023 6:48pm Note Date/Time May 12, 2023 3:45pm [facility] [address] [place] [address] Hospitalist Progress Note Signed Patient: Taurus Garcia MR#: [id number] : 1945 Acct:[id number] Age/Sex: 77 / M Adm Date: 3 Loc: Room: [address] [place] [address] Type: ADM IN Attending Dr: Eliezer Newell MD Copies to: ~ Date of Service: 05/12/2023 Subjective Subjective Narrative: Assessment And Plan 77M with PMH of HTN, HLD, Myasthenia Gravis (Dx 2017), CKD, PE(On Eliquis) who was admitted to [facility] 05/09 for generalized weakness. He was intubated there then transferred for the evaluation and treatment of suspected acute myasthenia gravis exacerbation. Acute Respiratory Failure remain on MV with low O2 demand The patient required intubation at [facility] CXR 05/11 shows Continued cardiomegaly and [...] Lactated Ringers IV 05/10/24 01:59 75 mls/hr .[id number] DORI Administration Immune Globulin 30 gm in [...] <Electronically signed by Eliezer Newell MD> 05/12/23 4415 [facility] Work Phone: 1(386) 388-192909-22-2023 Progress note Author Jamel Packer [facility] May 12, 2023 2:06pm Note Date/Time May 12, 2023 2:06pm [facility] [address] [place] [address] Neurology Progress Note Signed Patient: Taurus Garcia MR#: [id number] : 1945 Acct:[id number] Age/Sex: 77 / M Adm Date: 3 Loc: Room: [address] [place] [address] Type: ADM IN Attending Dr: Eliezer Newell [...] <Electronically signed by Jamel Packer DO> 05/12/23 1401 [facility] [place] [facility] Work Phone: 1(772) 447-703909-22-2023 Progress note Author Stanley Burt [facility] May 12, 2023 11:21am Note Date/Time May 12, 2023 8:32am [facility] [address] [place] [address] Pulmonology Progress Note Signed Patient: Taurus Garcia MR#: [id number] : 1945 Acct:[id number] Age/Sex: 77 / M Adm Date: 3 Loc: Room: [address] [place] [address] Type: ADM IN Attending Dr: Eliezer Newell [...] embolism who was transferred from outside hospital ([place]) with progressive decompensation likely related to myasthenia [...] <Electronically signed by MD Stanley Burt> 05/12/23 1121 [facility] Work Phone: 1(366) 277-228109-22-2023 Progress note Author Eliezer Newell [facility] May 12, 2023 12:47am Note Date/Time May 11, 2023 4:12pm [facility] [address] [place] [address] Hospitalist Progress Note Signed Patient: Taurus Garcia MR#: [id number] : 1945 Acct:[id number] Age/Sex: 77 / M Adm Date: 3 Loc: Room: [address] [place] [address] Type: ADM IN Attending Dr: Eliezer Newell MD Copies to: ~ Date of Service: 05/11/2023 Subjective Subjective Narrative: Assessment And Plan 77M with PMH of HTN, HLD, Myasthenia Gravis(Dx 2016), CKD, PE (On Eliquis) who was admitted to [facility] 05/09 for generalized weakness. He was intubated there then transferred for the evaluation and treatment of suspected acute myasthenia gravis exacerbation. Acute respiratory failure The patient required intubation at [facility] CXR 05/11 shows Continued cardiomegaly and [...] Lactated Ringers IV 05/10/24 01:59 75 mls/hr .[id number] DORI Administration Immune Globulin 30 gm in [...] DORI Documented By: Eliezer Newell MD 05/11/23 1606 Signed By: <Electronically signed by Eliezer Newell MD> 05/12/23 0047 [facility] Work Phone: 1(485) 569-122209-21-2023 Consult note Author Jamel Packer [facility] May 11, 2023 1:53pm Note Date/Time May 11, 2023 12:06pm [facility] [address] [place] [address] Neurology Consult Note Signed Patient: Taurus Garcia MR#: [id number] : 1945 Acct:[id number] Age/Sex: 77 / M Adm Date: 3 Loc: Room: [address] [place] [address] Type: ADM IN Attending Dr: Eliezer Newell MD Copies to: DO Komal Bajwa II, MD Marwan Wassouf, MD~ HPI Consult Date: 05/11/23 Cold Strip Roller: Jamel Packer DO [facility] Medical History Acute exacerbation of myasthenia gravis [...] mg PO DAILY 12/27/17 [History Confirmed 05/10/23] zwtgapwt-bkk-zytml acid 0.4 mg-lycopene 300 mcg-lutein 250 mcg [...] Aide Moe M.D.05/11/2023 7:15 AM Dictation Location: [place] [address] Chest X-Ray 05/11/23 05:19 IMPRESSION: Continued cardiomegaly and mild parenchymal changes. Impression dictated by: Aide Moe M.D.05/11/2023 7:14 AM Dictation Location: [place] [address] Assessment/Plan (1) Myasthenic crisis: Assessment/Problem Details: CONSULT [...] pulmonary emboli on chronic Eliquis. Transferred from [facility]. Initially presented there on May 09, [...] <Electronically signed by Jamel Packer DO> 05/11/23 1257 [facility] Work Phone: 1(705) 378-975709-21-2023 Consult note Author Lexy Chappell [facility] May 11, 2023 12:44pm Note Date/Time May 11, 2023 12:45pm [facility] [address] [place] [address] Pulmonology Consult Note Signed Patient: Taurus Garcia MR#: [id number] : 1945 Acct:[id number] Age/Sex: 77 / M Adm Date: 3 Loc: Room: [address] [place] [address] Type: ADM IN Attending Dr: Eliezer Newell MD Copies to: MD Lexy Gonsalves [...] history of pulmonary emboli who presented to [facility] with weakness, swallowing difficulties, and shortness [...] of systems: As mentioned above otherwise unremarkable [facility] Medical History Acute exacerbation of myasthenia gravis [...] mg PO DAILY 12/27/17 [History Confirmed 05/10/23] iaktxgev-hsw-zhvtn acid 0.4 mg-lycopene 300 mcg-lutein 250 mcg [...] neurologically improved Documented By: Lexy Chappell MD 05/11/231239 Signed By: <Electronically signed by Lexy Chappell MD> 05/11/23 1244 [facility] Work Phone: 1(734) 530-456609-21-2023 History and physical note Author Jarret Garza [facility] May 11, 2023 1:33am Note Date/Time May 11, 2023 1:07am [facility] [address] [place] [address] Hospitalist H&P Signed Patient: Taurus Garcia MR#: [id number] : 1945 Acct:[id number] Age/Sex: 77 / M Adm Date: 3 Loc: Room: [address] [place] [address] Type: ADM IN Attending Dr: Jarret Garza MD Copies to: MD Jarret Gonsalves II, MD~ HPI DATE OF EXAMINATION: 05/11/23 CHIEF COMPLAINT: Acute exacerbation of myasthenia gravis HISTORY OF PRESENT ILLNESS: Patient is a 77-year-old male with 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 Patient presented to [facility] on 05/09/2023 complaining of weakness over3 [...] his airway secretions, patient was intubated at [facility]. They reached outto our neurology service and discussed possibility of acute exacerbation of myasthenia gravis. Neurology accepted to see the patient on consult here for which patient was transferred to our facility for further evaluation and management. Review of Systems Review of Systems Unobtainable due to endotracheal tube [facility] Medical History Acute exacerbation of myasthenia gravis [...] mg PO DAILY 12/27/17 [History Confirmed 05/10/23] gsmyrury-ztb-ekxky acid 0.4 mg-lycopene 300 mcg-lutein 250 mcg [...] no leukocytosis from most recent labs at [place]. Repeat labs in am -Will start antibiotics [...] days): 5 Documented By: Jarret Garza MD 05/11/2308 26 Signed By: <Electronically signed by Jarret Garza MD> 05/11/23 0133 [facility] [place] [facility] Work Phone: 1(642) 813-775402-28-2023 History of Present illness Narrative* Addison Harvey MD - 10/18/2022 12:48 PM EST Physician Progress Note PATIENT: TAURUS GARCIA [facility] #: [id number] : 1945 ADMIT DATE: 10/15/2022 6:59 PM [...] any questions. Danie Maldonado RN, CDS cell- [phone] office hours - 630A-300P Options provided: -- sepsis due to UTI [...] 3.6* 3.2* CL 104 102 102 CO2 23 BUN 16 19 17 CREATININE 1.13 [...] patches multiple times this shift. When this sheet writer went to pt room due to telemonitor [...] there is no need to wear it. scallop cutter LOOM CHECKER for hospitalist group notified. * Colten Rosen RCP - 10/17/2022 9:43 PM EST Pt has own CPAP machine from home Unit was checked. 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 [facility] Office: [phone] Dharmesh Barbosa DO, Taurus Hoover DO, Jae [...] Sesay MD, Israel Lara MD, Marcelle Decker, GM, Adore Fraga, GM, Jolly Cardona, GM, Komal Bauer, GM, Malaika Ortiz, RONAL, Cynthia Amado, GM, Dee Lazo, GM, Joana Ponce, MIDDLE SCHOOL DIRECTOR, Mookie Castro, MIDDLE SCHOOL DIRECTOR, Teresita Robb, MIDDLE SCHOOL DIRECTOR, SUNDEEP CoronaC, Eliza Majano, [facility], Susanne Mock, MIDDLE SCHOOL DIRECTOR, Jaja Stanton, GM [facility] IN-PATIENT SERVICE [facility] Progress Note 10/17/2022 11:11 AM Name: Taurus Garcia Acct: [id number] Room: IP Day: 2 Admit Date: 10/15/2022 6:59 [...] post TURBTx2, BCG therapy who presented to [facility] 10/13 with penile bleeding/suspected Harrell trauma with BCG installation status post Harrell placement, and discharged home. Patient returned to [facility] earlier today with fevers with suspected sepsis with Harrell associated UTI and recommended for transfer to [facility] for urologic evaluation Status post second BCG [...] No results for input(s): PROT, LABALBU, LABA1C, Y2DOSOA, I5HZGKU, FT4, TSH, AST, ALT, LDH, GGT, ALKPHOS, LABGGT, BILITOT, BILIDIR, AMMONIA, AMYLASE, LIPASE, LACTATE, CHOL, HDL, LDLCHOLESTEROL, CHOLHDLRATIO, TRIG, VLDL, VUN41TR, PHENYTOIN, PHENYF, URICACID, POCGLU in the last 72 hours. ABG:No results found for: POCPH, PHART, PH, POCPCO2, NCF1AEZ, PCO2, POCPO2, PO2ART, PO2, POCHCO3, LSC9TKD, HCO3, NBEA, PBEA, BEART, BE, THGBART, THB, RYX9DUZ, TYMN8SMM, X2RDTNEI, O2SAT, FIO2 No results found for: SPECIAL [...] without long-term current use of insulin (HCC) 10/16/2022 Yes Morbid obesity (HCC) 10/16/2022 Yes Hyponatremia 10/16/2022 Yes Hypokalemia 10/16/2022 Yes Acute retention of urine 10/16/2022 Yes Hypomagnesemia 10/16/2022 Yes Hypocalcemia 10/16/2022 Yes CRP elevated 10/17/2022 Yes Elevated procalcitonin 10/17/2022 Yes Bandemia 10/17/2022 Yes SIRS (systemic inflammatory response syndrome) ([facility]) 10/17/2022 Yes Plan: Acute fever, possible sepsis [...] were not included. [facility] - Infectious diseases evaluation admission date 10/15/2022 [...] to the BCG instillation Infection Control Recommendations [place] Precautions Contact Isolation Antimicrobial Stewardship Recommendations Simplification of therapy Targeted therapy History of Present Illness: Initial history: Taurus Garcia is a 77 y.o.-year-old male transferred from [facility] because of sepsis. He has a history of BCG due to high-grade known muscle invasive bladder cancer, post TURBT x2 his last BCG was 10/13/2022 They noticed some bleeding from the urethra after the BCG installation and hence came to [facility], they thought it might be from the prior Harrell, so another Harrell was placed and was discharged home. That he came back with fatigue malaise fever chills. There was a concern for urosepsis and urine analysis was abnormal. He was sent to [facility] Interval changes 10/17/2022 Patient Vitals for the past 8 hrs: Weight 10/17/22 0600 (!) 318 lb 7 oz (144.4 kg) 10/17 Afebrile, vitals stable UA many WBC, nitrate and small leukocyte esterase Complaining of diarrhea overnight, liquid BM every 45 min, no foul smell Summary of relevant labs: Labs: Platelet, Jppppeuqzyyt952 WBC6.3 CRP86.3 High Procalcitonin0.20 High Micro: U [...] Keiko Jc Office: Perfect serve / office [phone] I have discussed the care of the [...] from the original note were not included. [facility] Office: [phone] Dharmesh Barbosa DO, Taurus Hoover DO, Jae [...] Jolly Cardona CNP, Komal Bauer CNP, Malaika Ortiz, RONAL, Cynthia Amado, MIDDLE SCHOOL DIRECTOR, Dee Lazo MIDDLE SCHOOL DIRECTOR, Joana Ponce MIDDLE SCHOOL DIRECTOR, Mookie Castro MIDDLE SCHOOL DIRECTOR, Teresita Robb CNP, Jarrod Ladd PA-C, Eliza Majano, VENTURA, Susanne Mock, MIDDLE SCHOOL DIRECTOR, Jaja Stanton, MIDDLE SCHOOL DIRECTOR [facility] IN-PATIENT SERVICE [facility] Progress Note 10/16/2022 11:27 AM Name: Taurus Garcia Acct: [id number] Room: 0322/0322-02 Day: 1 Admit Date: 10/15/2022 [...] post TURBTx2, BCG therapy who presented to [facility] 10/13 with penile bleeding/suspected Harrell trauma with BCG installation status post Harrell placement, and discharged home. Patient returned to [facility] earlier today with fevers with suspected sepsis with Harrell associated UTI and recommended for transfer to [facility] for urologic evaluation Patient describes abrupt onset [...] Harrell with decompression. Patient did return to [facility] ED earlier today with persistent [...] No results for input(s): PROT, LABALBU, LABA1C, C2AGPUF, I3SCQDT, FT4, TSH, AST, ALT, LDH, GGT, ALKPHOS, LABGGT, BILITOT, BILIDIR, AMMONIA, AMYLASE, LIPASE, LACTATE, CHOL, HDL, LDLCHOLESTEROL, CHOLHDLRATIO, TRIG, VLDL, XUJ04FG, PHENYTOIN, PHENYF, URICACID, POCGLU in the last 72 hours. ABG:No results found for: POCPH, PHART, PH, POCPCO2, HOQ2FAG, PCO2, POCPO2, PO2ART, PO2, POCHCO3, GND9FFF, HCO3, NBEA, PBEA, BEART, BE, THGBART, THB, PZH5MMZ, ICSN3WUP, Y7WMJSVG, O2SAT, FIO2 No results found for: SPECIAL [...] Yes Acute weakness 10/16/2022 Yes Myasthenia gravis ([facility]) 10/16/2022 Yes JAMISON (obstructive sleep apnea) 10/16/2022 Yes Current chronic use of systemic steroids 10/16/2022 Yes Type 2 diabetes mellitus with diabetic neuropathy, without long-term current use of insulin ([facility]) 10/16/2022 Yes Morbid obesity ([facility]) 10/16/2022 Yes Hyponatremia 10/16/2022 Yes Hypokalemia 10/16/2022 Yes Acute retention of urine 10/16/2022 Yes Hypomagnesemia 10/16/2022 Yes Hypocalcemia 10/16/2022 Yes Plan: - Vitals, labs, imaging, medications reviewed - Urology consulted - ID consult - Need for antibiotics per ID - Check inflammatory markers - Check UA Honorio Vuong MD 10/16/2022 11:27 AM * Nena Porras [facility] - 10/16/2022 11:08 AM EST Pharmacy Note [...] to 30mg subq BID Nena Porras PharmD [facility] 10/16/2022 11:08 AM documented in this encounterBON QUAIL RUN BEHAVIORAL HEALTHMessage Missile [facility] Work Phone: 1([phone]) 554-866202-28-2023 Hospital course Narrative* Addison Harvey MD - 10/18/2022 12:10 PM EST Images from the original note were not included. [facility] Office: [phone] Dharmesh Barbosa DO, Taurus Hoover DO, Jae [...] Marcelle Decker CNP, Adore Fraga CNP, Jolly Cardona, MIDDLE SCHOOL DIRECTOR, Komal Bauer, MIDDLE SCHOOL DIRECTOR, Malaika Ortiz, RONAL, Cynthia Amado, MIDDLE SCHOOL DIRECTOR, Dee Lazo, MIDDLE SCHOOL DIRECTOR, Joana Ponce, MIDDLE SCHOOL DIRECTOR, Mookie Castro, MIDDLE SCHOOL DIRECTOR, Teresita Robb, MIDDLE SCHOOL DIRECTOR, Jarrod Ladd PA-C, Eliza Majano, MANAGER LAND, Susanne Mock, MIDDLE SCHOOL DIRECTOR, Jaja Stanton, MIDDLE SCHOOL DIRECTOR [facility] IN-PATIENT SERVICE [facility] Discharge Summary Patient ID: Taurus Garcia : 1945 ACCOUNT: [id number] Patient's PCP: Komal Nguyen MD Admit Date: [...] Home Physician Follow Up: Komal Nguyen MD [address] [place] [address] Follow up in 1 week(s) your urologist [...] this patient's care. 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 Celso Peñaloza MD, PhD [facility] Discharge instructions Patient Education 03/29/2022 [...] including vitamins, herbs, eye drops, creams, and nals-fli-mevtdde medicines. Any problems you or family members [...] provider tells you to take them. Taking qwpr-ldm-eumfktl medicines, vitamins, herbs, and supplements. Tests You [...] 06/03/2010 Document Revised: 03/08/2019 Document Reviewed: 03/08/2019 [employer] Patient Education 2020 [employer]. Follow Up Care 03/03/2022 14:58:42 With:Autumn Molina MD, Yoko Hair URO Address: [facility] [address] [place] [address]- [phone] When: Unknown Comments:schedule Cysto/TURBT and CT [facility] 07-14-2022 Hospital Discharge instructions Patient Education 03/03/2022 11:28:54 Post Op Patient Instructions - FT (CUSTOM) Follow Up Care 02/09/2022 11:58:15 With:Yoko Rizvi Address: [facility] [address] [place] [address]- Business (1) When:2 to 4 weeks Comments:Reviewed pathology report and plan exudative treatment.Call for any problems.Call for followup appointment [facility]07-05-2022 Note [id number]:127[facility] 02-01-2022 Hospital Discharge instructions Patient Education 02/01/2022 [...] cells. Follow these instructions at home: Take affh-vtb-qfwzpwz and prescription medicines only as told by [...] is important. Where to find more information [employer]: www.cancer.org National Cancer [employer] (NCI): www.cancer.gov Contact a health care provider [...] 08/09/2004 Document Revised: 07/20/2018 Document Reviewed: 07/11/2017 [employer] Patient Education 2019 [employer]. [facility] 05-09-2022 Hospital Discharge instructions Patient Education 12/27/2021 [...] Follow these instructions at home: Medicines Take fitw-exd-dkjjvgw and prescription medicines only as told by [...] or the blood stops without treatment. Take szff-zxl-fmzqsah and prescription medicines only as told by your health care provider. Drink enough fluid to keep your urine clear or pale yellow. This information is not intended to replace advice given to you by your health care provider. Make sure you discuss any questions you have with your health care provider. Document Released: 08/07/2006 Document Revised: 01/01/2020 Document Reviewed: 09/09/2017 [employer] Patient Education 2019 [employer]. Follow Up Care 12/07/2021 14:21:16 With:Autumn Molina MD, Yoko Hair, URO Address: [facility] [address] [place] [address]- When: Unknown Comments:schedule follow up after TURBT [facility] 04-19-2022 Hospital Discharge instructions Patient Education [...] Follow these instructions at home: Medicines Take suwu-frb-amieqdc and prescription medicines only as told by [...] or the blood stops without treatment. Take zgdv-zpn-thhhzcx and prescription medicines only as told by your health care provider. Drink enough fluid to keep your urine clear or pale yellow. This information is not intended to replace advice given to you by your health care provider. Make sure you discuss any questions you have with your health care provider. Document Released: 08/07/2006 Document Revised: 01/01/2020 Document Reviewed: 09/09/2017 [employer] Patient Education 2020 [employer]. Follow Up Care 11/05/2021 14:25:01 With:Autumn Molina MD, Yoko Hair, URO Address: [facility] [address], [place] [address]- [phone] When: Unknown [facility] discharge summary Author Chau Lara [facility] May 21, 2023 12:26pm Note Date/Time May 21, 2023 12 :23pm [facility] [address] [place] [address] Discharge Summary Signed Patient: Taurus Garcia MR#: [id number] : 1945 Acct:[id number] Age/Sex: 77 / M Adm Date: 3 Loc: Room: [address] [place] [address]: Chau Lara MD Copies to: [...] CKD, PE(On Eliquis) who was admitted to [facility] 05/09 for generalized weakness. He was [...] Discharge Plan Discharge Plan Patient Disposition: Rehab [facility] Additional Instructions: Inpatient Rehab to manage care: [...] signed by Chau Lara MD> 05/21/23 1226 [facility] Work Phone: Evaluation + Plan note Future Appointments Appointment Date:12/27/2021 01:00:00 PM Scheduled Provider:Yoko Rizvi Jr., MD Location:[facility] Appointment Type:URO Procedure 15 min Diagnostic Tests Pending * UroVysion Fish and Urine Cyto ([facility]) 12/07/21 * UroVysion Fish and Urine Cyto ([facility]) 12/07/21 [facility] evaluation + Plan note Future Appointments Appointment Date:02/01/2022 10:30:00 AM Scheduled Provider:Yoko Rizvi Jr., MD Location:[facility] Appointment Type:URO Office Visit [facility] evaluation + Plan note Future Appointments Appointment Date:02/01/2022 10:30:00 AM Scheduled Provider:Yoko Rizvi Jr., MD Location:[facility] Appointment Type:URO Office Visit Diagnostic Tests Pending * [facility]ments Appointment Date:03/03/2022 11:00:00 AM Scheduled Provider: Location:[facility] Appointment Type:Surgery FT Diagnostic Tests Pending * Urine Culture 02/17/22 [facility] + Plan note Future Appointments Appointment Date:03/29/2022 11:00:00 AM Scheduled Provider:Yoko Rizvi Jr., MD Location:[facility] Appointment Type:[facility]O [facility] Diagnosis Malignant neoplasm of overlapping sites of bladder (HCC)- Primary Malignant neoplasm of other specified sites of bladder documented in this encounter [facility] note* Diagnosis Screening for genitourinary condition Screening for other and unspecified genitourinary condition documented in this encounter [facility] noteNo assessment information [facility] Work Phone: evaluation note* Diagnosis Fever, unspecified- Primary Bladder cancer [...] response syndrome, unspecified documented in this encounter [facility] Work Phone: evaluation note* Diagnosis Onset Date [...] (urinary tract infection) due to Enterococcus acute [facility] Work Phone: Evaluation note* Diagnosis Onset Date [...] acute Oropharyngeal dysphagia acut e Pulmonary emboli acute [facility] Work Phone: Evaluation note* Diagnosis Paroxysmal atrial fibrillation (CMS/HCC) Atrial fibrillation Pulmonary embolism, unspecified chronicity, unspecified pulmonary embolism type, unspecified whether acute cor pulmonale present (CMS/HCC) Myasthenia gravis (CMS/HCC) Myasthenia gravis without exacerbation High risk medication use Essential hypertension Unspecified essential hypertension Mixed hyperlipidemia Morbid obesity with BMI of 45.0-49.9, adult (CMS/HCC) documented in this encounter [facility] Work Phone: Evaluation note* Diagnosis Bilateral leg weakness- Primary Muscle weakness (generalized) Difficulty walking Difficulty in walking Right leg pain Pain in soft tissues of limb [facility] Diagnosis Type 2 diabetes mellitus with diabetic neuropathy, without long-term current use of insulin (CMS/HCC)- Primary Benign essential hypertension (CMS/HCC) Essential hypertension, benign Paroxysmal atrial fibrillation (CMS/HCC) Atrial fibrillation [facility] Diagnosis Bilateral leg weakness- Primary Muscle weakness (generalized) Difficulty walking Difficulty in walking Right leg pain Pain in soft tissues of limb [facility] Diagnosis Bilateral leg weakness- Primary Muscle weakness (generalized) Difficulty walking Difficulty in walking Right leg pain Pain in soft tissues of limb [facility]* Diagnosis Routine general medical examination at health care facility- Primary Routine general medical examination at a health care facility ACP (advance care planning) Other specified counseling Osteoarthritis of spine with radiculopathy, 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, without long-term current use of insulin ([facility]) Type 2 diabetes 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, without long-term current use of insulin ([facility]) Myasthenia gravis without (acute) exacerbation (G70.00) Atherosclerosis of [place] artery of both lower extremities with intermittent claudication ([facility]) Morbid (severe) obesity due to excess calories (E66.01) Body mass index [BMI] 45.0-49.9, adult (Z68.42) documented [facility] N[facility]* The patient [...] medication regimen. He denies medication side effects. [facility] 250 DO Work Phone: History of Present [...] medication regimen. He denies medication side effects. [facility] 600 DO Work Phone: Hospital course Narrative No data available for this section [facility] Hospital Discharge instructions No data available for this section [facility] Hospital Discharge instructions Additional Instructions Inpatient [...] unable to urinate, harrell catheter removed on [facility] Work Phone: Hospital Discharge instructions Additional Instructions Call Dr. Saunders's office tomorrow [facility] are [facility] Work Phone: Progress note No data available for this section [facility] progress note Author Silvestre Grover [facility] June 10, 2023 9:35am Note Date/Time June 10, 2023 9 :35am [facility] [address] [place] [address] Physiatry(Rehab) Progress Note Signed Patient: Taurus Garcia MR#: [id number] : 1945 Acct:[id number] Age/Sex: 77 / M Adm Date: 3 Loc: Room: 9F7092-9 Type: ADM IN Attending Dr: Silvestre Grover MD Copies to: ~ Date of Service: 06/09/2023 Subjective Subjective Narrative: Mr. Garcia is a 77 year old male with past medical history of myasthenia gravis,hypertension, A-fib anticoagulated with Eliquis, PE, CKD, obstructive sleep apnea on BiPAP, who presents to acute inpatient rehab with functional impairments due to MG crisis. Patient presented to [facility] on 05/11/2023 with complaints of worseninggeneralized weakness over the course of several days. He was found to be mildlyhypoxic. Also complaining of urinary symptoms. Initially admitted to [facility] for observation however developed worsening respiratory status with increased secretions and inability to protect own airway and was subsequently intubated and transferred to [facility] for neurology services. Patient received a 5-day [...] Tablet PO 05/21/24 08:59 200 mg QAM DROI Administration Apixaban 5 mg 05/21/23 17:30 06/10/23 05:26 Apixaban 5 Mg Tablet PO 05/20/24 17:29 5 mg Q12H DORI Administration Atorvastatin Calcium 20 mg 05/21/23 22:00 06/09/23 20:47 Atorvastatin 20 Mg Tablet PO 05/20/24 21:59 20 mg HS DORI Administration Bisacodyl 10 mg 05/21/23 14:25 Bisacodyl 10 Mg Supp.Rect SC 05/20/24 14:24 DAILY PRN Constipation Docusate Sodium 100 mg 05/21/23 14:25 Docusate 100 Mg Capsule PO 05/20/24 14:24 BID PRN Constipation Docusate Sodium 283 mg 05/21/23 14:25 Docusate Enema 283 Mg/5 Ml Enema SC 05/20/24 14:24 DAILY PRN Constipation Fish Oil 1,000 mg 05/21/23 21:00 06/10/23 09:09 [place]-3/Fish Oil 1,000 Mg Capsule PO 05/20/24 20:59 [...] 05/31/24 08:59 Not Given DAILY DORI Pyridostigmine Golf 60 mg 05/21/23 18:00 06/10/23 09:09 Pyridostigmine Golf 60 Mg Tablet PO 05/20/24 17:59 60 mg QID DORI Administration Saccharomyces Boulardii 250 mg 05/30/23 21:00 06/10/23 09:09 Saccharomyces Boulardii 250 Mg Capsule PO 05/29/24 [...] impairments secondaryto myasthenic crisis. [facility] admitted [facility]. Had to be intubated [...] equipment to enhance the patient's a functional mandaeism Ensure adequate nutrition and hydration Sleep: No concerns. Pain: Continue current regimen Discharge planning: Hopefully home with his tomorrow. Plan: I completed a substantive portion of this encounter, the medical decision makingportion of this note in its entirety, including Allied health note review, nursing note review, independent beauty consultant note review, discussion with nursing and case management, and more than 50% of my time was spent on counseling and coordination of care, time spent 25 minutes Patient was personally seen by me, Dr. Grover, on the day of encounter, reviewed the history and the relevant portions of the chart, including current orders, allied health and independent beauty consultant notes, labs/imaging and performed garcia elements of exam and I formulated the plan of care and facilitated the medical decision making. Documented By: Silvestre Grover MD 06/10/23 0934 Signed By: <Electronically signed by Silvestre Grover MD> 06/10/23 0935 [facility] Work Phone: Reason for referral (narrative)* Consultation (Routine) - Authorized Specialty Diagnoses / Procedures Referred By Contac t Referred To Contact Cardiology Diagnoses Paroxysmal atrial fibrillation (CMS/HCC) Essential hypertension Mixed hyperlipidemia Procedures Follow Up In Cardiology Baltazar Hoover DO [address] [facility], [address] [place] [id number] Baltazar Hoover DO [address] [facility] [place] [address] Referral ID Status Reason Start Date Expiration Date V isits Requested Visits Authorized [id number] Authorized 09/20/2023 09/19/2024 1 1 * Cardiovascular (Routine) - Authorized Specialty Diagnoses / Procedures Referred By Contac t Referred To Contact Diagnoses Paroxysmal atrial fibrillation (CMS/HCC) Procedures ECG 12 Lead Baltazar Hoover DO [address] [facility] [address], [address] [address] Referral ID Status Reason Start Date Expiration Date V isits Requested Visits Authorized [id number] Authorized 09/20/2023 09/19/2024 1 1 * Cardiovascular (Routine) - Pending Review Specialty Diagnoses / Procedures Referred By Contac t Referred To Contact Cardiology Diagnoses Paroxysmal atrial fibrillation (CMS/HCC) Procedures Holter Or Event Waste[employer] Treatment Plant Supervisor Baltazar Hoover DO [address] [facility] [address], [address] [address] Referral ID Status Reason Start Date Expiration Date V isits Requested Visits Authorized [id number] Pending Review 09/20/2023 09/19/2024 1 1 * Consultation (Routine) - Authorized Specialty Diagnoses / Procedures Referred By Contac t Referred To Contact Cardiology Diagnoses Paroxysmal atrial fibrillation (CMS/[facility]) Procedures Follow Up In Cardiology Baltazar Hoover DO [address] [facility] [address] [place] [address] Autumn Melonie K, EVENT COORDINATOR-[employer]CHO[employer] DIRECTOR [address] [facility] [address] [place] [address] Referral ID Status Reason Start Date Expiration Date V isits Requested Visits Authorized [id number] Authorized 09/20/2023 09/19/2024 1 1 [facility] Work Phone: Summary Purpose Family History [...] crisis Oropharyngeal dysphagia Pulmonary emboli Chief Complaint Weakness Chief Complaint * Annual f/u: 'doing good' [...] section and content) DATE CREATED AUTHOR 02/07/2018 [facility] DATE CREATED AUTHOR AUTHOR'S ORGANIZ ATION 09/01/2021 [employer] DATE CREATED AUTHOR AUTHOR'S ORGANIZ ATION 01/21/2022 [facility] DATE CREATED AUTHOR AUTHOR'S ORGANIZ ATION 02/12/2022 [facility] dical Specialist DATE CREATED AUTHOR AUTHOR'S ORGANIZ ATION 07/28/2022 [facility] DATE CREATED AUTHOR AUTHOR'S ORGANIZ ATION 10/19/2022 [facility] DATE CREATED AUTHOR AUTHOR'S ORGANIZ ATION 05/26/2023 [facility] DATE CREATED AUTHOR AUTHOR'S ORGANIZ ATION 09/24/2023 [facility] DATE CREATED AUTHOR AUTHOR'S ORGANIZ ATION 10/18/2023 [facility] DATE CREATED AUTHOR AUTHOR'S ORGANIZ ATION 11/17/2023 [facility] DATE CREATED AUTHOR AUTHOR'S ORGANIZ ATION 12/20/2023 [facility] DATE CREATED AUTHOR AUTHOR'S ORGANIZ ATION 02/18/2024 [facility] DATE CREATED AUTHOR AUTHOR'S ORGANIZ ATION 02/24/2024 [facility] dical Specialists EPIC Care Team (unrecognized sect ion and content) Team Status: Active Member Role Status Dates Komal Nguyen II MD Primary Care Provider Active Team Status: Inactive Member Role Status Dates Komal Nguyen II MD Primary Care Provider Active Ivan Barnhart MD Attending Provider Active Pawn Broker Relationship Specialty Start Date End Date Komal Nguyen II [address] [place] [address] PCP - General Internal Medicine 12/05/16 Pawn Broker Relationship Specialty Start Date End Date Komal Nguyen II [address] [place] [address] PCP - General Internal Medicine 12/05/16 Pawn Broker Relationship Specialty Start Date End Date Komal Nguyen MD [address] [place] [address] PCP - General Internal Medicine 10/14/22 Team Status: Inactive Member Role Status Dates Komal Nguyen II MD Primary Care Provider Active Jarret Garza MD Admit Provider Active Pauline Canales Other Provider Active Tonia Krystal , DO Other Provider Active Wilton Lockhart MD Other Provider Active Stanley Saunders , DO Other Provider Active Sabine Salomon , ANP-BC Other Provider Active Jamel Packer , DO Other Provider Active Nikole Mosqueda , EVENT COORDINATOR Other Provider Active Rubia Henning , LOOM CHECKER-C Other Provider Active Mookie Coffey , EVENT COORDINATOR-GO CART MECHANIC-C Other Provider Active Silvestre Grover MD Other Provider Active Donita Armstrong , EVENT COORDINATOR ACNP-BC Other Provider Active Lexy Chappell MD Other Provider Active Stanley Burt MD Other Provider Active Cora Rawls MD Other Provider Active Colten Xavier , DO Other Provider Active Blnak Gross MD Other Provider Active Eriberto Yang MD Other Provider Active Jamel Noe MD Other Provider Active Dejuan Tuttle , DO Other Provider Active Chau Lara MD Attending Provider Active Team Status: Inactive Member Role Status Dates Komal Nguyen II MD Primary Care Provider Active Silvestre Grover MD Admit Provider, Attending Provider A ctive Libby Potter , HEATHER Other Provider Active Melva Mendoza , RN Other Provider Active Cassi Lo , RN Other Provider Active Rocio Renner , RN Other Provider Active Alessia Justin , HEATHER Other Provider Active Chayito Leone , RN Other Provider Active Kevin Leo MD Other Provider Active Blank Leon , EVENT COORDINATOR Other Provider Active Meri Blanco , DO [...] Dos Santos MD Other Provider Active Candida Perez , LOOM CHECKER-C Other Provider Active Kushal Vizcarra MD Other Provider Active Torsten Burdick MD Other Provider Active Dudley Leon MD Other Provider Active Markus Johnson MD Other Provider Active Sofia Martinez , DO Other Provider Active Zai Duncan , DO Other Provider Active Rodolfo Temple , DO Other Provider Active Susanne Sharma , EVENT COORDINATOR Other Provider Active Dru Reveles , DO Other Provider Active Jarret Garza MD Other Provider Active Yuki Rizvi , EVENT COORDINATOR Other Provider Active Queenie Shepherd , EVENT COORDINATOR Other Provider Active Suraj Razo MD Other Provider Active Komal Albright MD Other Provider Active Angelia Gamez , EVENT COORDINATOR Other Provider Active Mariana Xiong , HEATHER Other Provider Active Pawn Broker Relationship Specialty Start Date End Date Komal Nguyen MD [address] [place] [address] PCP - General 05/18/23 Pawn Broker Relationship Specialty Start Date End Date Komal Nguyen MD [address] [place] [address] PCP - General Internal Medicine 01/02/23 Komal Nguyen MD [address] [place] [address] PCP - ACO Reach 01/12/23 Pawn Broker Relationship Specialty Start Date End Date Komal Nguyen MD [address] [place] [address] PCP - General Internal Medicine 01/02/23 Komal Nguyen MD [address] [place] [address] PCP - ACO Reach 01/12/23 Pawn Broker Relationship Specialty Start Date End Date Komal Nguyen MD [address] [place] [address] PCP - General Internal Medicine 01/02/23 Komal Nguyen MD [address] [place] [address] PCP - ACO Reach 01/12/23 Pawn Broker Relationship Specialty Start Date End Date Komal Nguyen MD [address] [place] [address] PCP - General Internal Medicine 01/02/23 Komal Nguyen MD [address] [place] [address] PCP - ACO Reach 01/12/23 Pawn Broker Relationship Specialty Start Date End Date Komal Nguyen MD [address] [place] [address] PCP - General Internal Medicine 01/02/23 Komal Nguyen MD [address] [place] [address] PCP - ACO Reach 01/12/23 Pawn Broker Relationship Specialty Start Date End Date Komal Nguyen MD [address] [place] [address] PCP - General Internal Medicine 01/02/23 Komal Nguyen MD [address] [place] [address] PCP - ACO Reach 01/12/23 Team Status: Inactive Member Role Status Dates Komal Nguyen II MD Primary Care Provider Active Start: February 12, 2024 End: February 12, 2024 Eriberto Rizvi MD Emergency Provider Active Star t: February 12, 2024 End: February 12, 2024 Source Comments (unrecognize d section and content) In the event this informatio n is protected by the [facility] Confidentiality of Alcohol and Drug Abuse Patient Records regulations: The Federal rules restrict any use of the information to criminally investigate or prosecute any alcohol or drug abuse patient.[facility] the event this information is protected by the Federal Confidentiality of Alcohol and Drug Abuse Patient Records regulations: The Federal rules restrict any use of the information to criminally investigate or prosecute any alcohol or drug abuse patient.[facility] Reason for Visit (unrecogniz ed section and content) Reason Comments Bladder Cancer Specialty Diagnoses / Procedures Referred By Contac t Referred To Contact Diagnoses Fever, unspecified Fever, immunocompromised patient Honorio Vuong MD [address] [place] [address] [facility] [address] [place] [address] Referral ID Status Reason Start Date Expiration Date Visits Re quested Visits Authorized [id number] 1 1 Reason Comments Follow-up 1yr Specialty Diagnoses / Procedures Referred By Contac t Referred To Contact Diagnoses Paroxysmal atrial fibrillation (CMS/HCC) Procedures ECG 12 Lead Baltazar Hoover DO [address] [facility] [address], [address] [address] Referral ID Status Reason Start Date Expiration Date V isits Requested Visits Authorized [id number] Authorized 09/20/2023 09/19/2024 1 1 Specialty Diagnoses / Procedures Referred By Contac t Referred To Contact Physical Therapy Diagnoses Myasthenia gravis without (acute) exacerbation (CMS/HCC) Procedures SC PHYSICAL THERAPY EVALUATION LOW COMPLEX 20 MINS Stanley Saunders MD [address] [place] [address] Darinel Smith, PT [address] [place] [address] Referral ID Status Reason Start Date Expiration Date V isits Requested Visits Authorized [id number] Authorized 09/01/2023 02/28/2024 30 30 Reason Comments Medicare Annual Wellness Visit Eveila kaufman Results labs discuss medication dosage Pt [...] Uriarte RN) 0816 (Given - Provider: Adebayo Lopez, HEATHER) 0923 (Given - Provider: Adebayo Lopez RN) [...] med 10 mEq, IntraVENous, PRN, Starting on 10/15/22 [...] BE BASED ON THE PRIMARY CLINICAL RECORDS. [employer] provides no warranty or guarantee of the accuracy or completeness of information in this document.
== END 2024-03-06 06:46 | disposition home or self-care (01) ==
LOC: MRI 06:45
PROVIDERS: PCP Internal Medicine; Visit Provider Orthopaedic Surgery
DX: M25.562 Pain in left knee (principal); S83.282A Other tear of lateral meniscus, current injury, left knee, initial encounter
CPT/HCPCS: 73721

== ENCOUNTER 2024-05-30 13:11 | Outpatient (OUT) | payer MEDICARE, SELFPAY ==
--- NOTE | 2024-05-30 13:32 | P.CN_ITS ---
Consult Note: HPI Data of Consult Patient: known to practice within the last 3 years Consult date: 12/18/23 Requesting Physician: Kimberly Wright NP Primary Care Provider: KOMAL SCHAFFER Consult Narrative Reason for consult: low back, right leg pain Narrative: 78yom who presents for evaluation. lumbar XR shows multilevel degeneration, recent MRI shows moderate to severe degenerative changes and stenosis as noted below. continues in provider directed home exercise course >6 weeks, with minimal benefit. has completed PT. uses norco daily as needed with benefit. on apixaban, so no nsaids. Patient recently underwent right L3/4 L4/5 TFESI and right SIJ injection with >80% improvement in pain and functional ability greater than 3 months, he is noticing pain is worsening returning to baseline over the last two weeks. currently following with orthopedics and PT for left knee pain/OA. cc:: CC: Kimberly Wright NP Review of Systems ROS Status of ROS 10 or more systems reviewed and unremark able except as noted in history and below Musculoskeletal Reports: back pain, extremity pain and joint pain PFSH PFSH Medical History Myasthenia gravis ?G70.00 - Myasthenia gravis without (acute) exacerbation (ICD-10) CKD (chronic kidney disease) stage 3, GFR 30-59 ml/min ?N18.30 - Chronic kidney disease, stage 3 unspecified (ICD-10) History of pulmonary embolism ?Z86.711 - Personal history of pulmonary embolism (ICD-10) Hypertension ?I10 - Essential (primary) hypertension (ICD-10) Bladder cancer ?C67.9 - Malignant neoplasm of bladder, unspecified (ICD-10) Pulmonary embolism ?I26.99 - Other pulmonary embolism without acute cor pulmonale (ICD-10) Surgical History Previous back surgery ?Z98.890 - Other specified postprocedural states (ICD-10) History of appendectomy ?Z90.49 - Acquired absence of other specified parts of digestive tract (ICD- 10) Family History Mother Family history of cancer Grandmother Family history of diabetes mellitus Father Family history of myocardial infarction Social History Within the past year, how often did you have a drink containing alcohol: monthly or less Within the past year, how many standard drinks containing alcohol did you have on a typical day: 1 or 2 Within the past year, how often did you have six or more drinks on one occasion: never Total score: 0 Score interpretation: A score less than 4 is consistent with normal alcohol consumption. 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 Known occupational exposures/hazards: No Highest level of school completed/degree received: high school graduate Are you now , , , , never or living with a partner: In a typical week, how many times do you talk on the telephone with family, friends, or neighbors: once per week How often do you get together with friends or relatives: once per week How often do you attend yazidi or roman catholic services: never Do you belong to any clubs or organizations such as yazidi groups unions, mymission2 or athletic groups, or school groups: no Total score: 1 Score interpretation: A score of less than or equal to 1 indicates the most socially isolated. Little interest or pleasure in doing things: not at all Feeling down, depressed, or hopeless: not at all Feel stressed/tense/nervous/anxious/difficulty sleeping: not at all Due to disability, difficulty making decisions: No Do you think of yourself as: straight/heterosexual Gender Identity: male Meds Home Medications and Allergies Home Medications ?Medication ?Instructions ?Recorded ?Confirmed ?Type apixaban 5 mg tablet (Eliquis) 5 mg PO Q12H 05/09/23 01/22/24 History baclofen 10 mg tablet 10 mg PO Q8H 05/09/23 01/22/24 History furosemide 20 mg tablet 20 mg PO DAILY 05/09/23 01/22/24 History hydralazine 50 mg tablet 50 mg PO Q12H 05/09/23 01/22/24 History lisinopril 20 mg tablet 20 mg PO DAILY 05/09/23 01/22/24 History loratadine 10 mg tablet (Claritin) 10 mg PO DAILY 05/09/23 01/22/24 History multivitamin 1 tab PO DAILY 05/09/23 01/22/24 History nebivolol 10 mg tablet 10 mg PO DAILY 05/09/23 01/22/24 History omega-3 fatty acids 1,200 mg PO BID 05/09/23 01/22/24 History potassium chloride 10 mEq 10 meq PO DAILY 05/09/23 01/22/24 History tablet,extended release(part/cryst) prednisone 10 mg tablet 10 mg PO DAILY 05/09/23 01/22/24 History pyridostigmine bromide 60 mg tablet 60 mg PO Q6H 05/09/23 01/22/24 History simvastatin 40 mg tablet 40 mg PO DAILY 05/09/23 01/22/24 History triamterene 37.5 1 tab PO DAILY 05/09/23 01/22/24 History mg-hydrochlorothiazide 25 mg tablet gabapentin 300 mg capsule 300 mg PO DAILY 12/18/23 01/22/24 History hydrocodone 5 mg-acetaminophen 325 1 tab PO DAILY PRN pain #30 tabs 12/28/23 01/22/24 Rx mg tablet naloxone 4 mg/actuation nasal 1 spray intranasal Q2M PRN opioid 12/28/23 01/22/24 Rx spray (Narcan) overdose #2 ea doxycycline hyclate 100 mg capsule 100 mg PO BID 01/22/24 01/22/24 History hydrocodone 5 mg-acetaminophen 325 1 tab PO DAILY PRN pain #60 tabs 03/04/24 Rx mg tablet Allergies Allergy/AdvReac Type Severity Reaction Status Date / Time No Known Drug Allergies Allergy Verified 01/22/24 10:47 Exam Constitutional Documenting provider has reviewed patient's vital signs: yes Common normals: no apparent distress, oriented x3, healthy appearing, alert and well nourished General appearance: cooperative [facility] Common normals: normocephalic, hearing grossly normal bilaterally and moist oral mucous membranes Head and scalp: normocephalic Eye Common normals: PERRL Pupil: PERRL Neck & C-Spine Common normals: full ROM General: normal visual inspection Chest Common normals: inspection of chest normal Respiratory Common normals: normal respiratory effort, no retractions and no use of accessory muscles Back & Pelvis Lumbar spine/lower back: normal to inspection, lumbar ROM normal and straight leg raise positive right Sacroiliac joints: SI joint(s) abnormal Other: altered sensation right L3/4/5 strength 4/5 in BLE right SIJ positive jorge(patricks), gaenslens, thigh thrust, compression test Extremity Left lower extremity: knee joint Other: mild pain and edema noted Neuro Common normals: oriented x3, CN's II-XII intact bilaterally, moves all extremities, no focal motor deficits, no sensory deficits noted and deep tendon reflexes 2+ bilaterally Sensorium/orientation: alert Gait (neuro): assistive device used walker Motor exam: no movement abnormalities noted and strength abnormal Psych Common normals: mental status grossly normal, thought process normal, coopera tive, affect normal, speech normal and activity/motor behavior normal Speech: normal speech Thought process: normal thought process Results Additional Findings Additional findings: If on a controlled substance or opioids, I have checked an OARRS report on this patient and there are no aberrancies noted in the prescribing history.??If on a controlled substance or opioid a drug screen was completed and reviewed within the last year, and if there has not been a drug screen completed we ordered one today to monitor higher risk, state monitored pain medication use. As part of providing excellent, safe, comprehensive care, the following was completed at our patient's visit: 1. A medication reconciliation and review to ensure accurate knowledge of current/active medications, including asking our patients to inform us about any zyri-tcr-[id number] medications or herbal remedies/nutritional supplements/alternative remedies. 2. A review to specifically ensure our patients have had annual screening for screening for depression, screening for tobacco use, and screening for unhealthy alcohol use. For concerning screenings had a discussion with the patient, provided patient education, and recommended follow-up with primary care provider when appropriate. If patient noted with a risk of falling, they received education on strength, gait, and balance training to prevent future risk of falling. Assessment and Plan Assessment and Plan (1) Lumbar stenosis with neurogenic claudication: (2) Sacroiliitis: (3) Generalized weakness: (4) Chronic prescription opiate use: Plan repeat right L3/4 L4/5 TFESI under fluoroscopy, risks vs benefits reviewed cannot take NSAIDs, on eliquis, has failed acetaminophen. Patient finds moderate benefit from gabapentin 300mg BID and norco 5-325mg once daily as needed. Patient utilizing norco less frequently since injections. denies side effects continue PT/HEP as tolerated f/u after injection
== END 2024-05-30 13:12 | disposition home or self-care (01) ==
PROVIDERS: PCP Internal Medicine; Visit Provider Nurse Practitioner
DX: M48.062 Spinal stenosis, lumbar region with neurogenic claudication (principal); M46.1 Sacroiliitis, not elsewhere classified; R53.1 Weakness; Z79.891 Long term (current) use of opiate analgesic
CPT/HCPCS: G0463

== ENCOUNTER 2024-06-10 09:46 | Day surgery (SDC) | payer MEDICARE, SELFPAY ==
[2024-06-10 10:13] VITALS: BP 132/64; PULSE 64; TEMP 36.4; O2SAT 94
[2024-06-10 10:49] VITALS: BP 147/92; BP 149/79; PULSE 67; PULSE 70; O2SAT 92; O2SAT 94
[2024-06-10] MEDS: BUPIVACAINE HCL 0.25% PF 25 MG/10 ML VIAL INJ (10:51)
[2024-06-10] MEDS: DEXAMETHASONE SOD PHOS 10 MG/ML VIAL INJ (10:51)
[2024-06-10] MEDS: LIDOCAINE HCL 2% 400 MG/20 ML MDV 3 ML INJ (10:51)
[2024-06-10] MEDS: 0.9 % SODIUM CHLORIDE 10 ML SYRINGE - SALINE FLUSH INJ (10:51)
[2024-06-10] MEDS: IOHEXOL 240 MG/ML - 10 ML VIAL INJ (10:51)
--- NOTE | 2024-06-10 10:56 | P.ON_ITS ---
Date of procedure: 06/10/24 Pre-op diagnosis: Pain due to lumbar stenosis with neurogenic claudication Post-op diagnosis: same as pre-op Procedure: Procedure: Right L3-4, L4-5 transforaminal epidural steroid injection Medications: Bupivacaine 0.25% 2cc, lidocaine 2% 1cc, kenalog 80mg The patient was seen and examined in the preoperative holding area.? Informed consent was obtained and placed on the chart.? Patient was brought to the medical procedure unit and placed in the prone position where a timeout was completed verifying the correct patient, procedure site, position, and planned special equipment using sterile aseptic technique.? Under direct fluoroscopic visualization a 25-gauge Quincke tipped spinal needle was advanced to the designated neural foramen where contrast dye was injected to show adequate spread.? The needle was inserted at level right L3-4. There was no evidence of vascular or adverse uptake.? Epidural spread was appreciated.? The above- mentioned injectate was then placed in a 1.5 mL aliquot preceded by negative aspiration.? The needle was removed. The needle was inserted and the procedure repeated at level right L4-5.? The surgery site was covered.? Patient was taken to the postprocedural recovery area and monitored for an appropriate length of time before found suitable for discharge in the accompaniment of a responsible adult. Anesthesia: Local Surgeon: Jadyn Wyman Pathology: none sent Condition: stable Disposition: no change
== END 2024-06-10 11:02 | disposition home or self-care (01) ==
LOC: SURGOUT 09:47
PROVIDERS: PCP Internal Medicine; Visit Provider Anesthesiology
DX: M48.062 Spinal stenosis, lumbar region with neurogenic claudication (principal)
CPT/HCPCS: 64483; 64484; J0665; J1100; Q9966

== ENCOUNTER 2024-09-09 10:48 | Outpatient (OUT) | payer MEDICARE, SELFPAY ==
--- OUTSIDE RECORDS SUMMARY | 2024-09-09 11:10 | XMS_ITS | CCD ---
Author Organization [facility] Care Team Providers Care Blister Rust Eradicator Name Role Phone OLIVIA HALL Unavailable Unavailable NO FAMILY DOCTOR, NO FAMILY DOCTOR Unavailable Unavailable BALTAZAR LÓPEZ Unavailable Unavailable NO FAMILY DOCTOR, NO FAMILY DOCTOR Unavailable Unavailable KOMAL NGUYEN Primary Care Physician AUTUMN WATTS, DR YOKO Hair Consulting Unavailzuly RIZVI JR, DR YOKO Hair Admitting Unavailabl e SARBJIT, DR BAZAN Primary Care Unavailable AUTUMN WATTS, DR YOKO Hair Attending Unavailzuly RIZVI JR, DR YOKO Hair Admitting Unavailzuly NGUYEN, DR BAZAN Primary Care Unavailable AUTUMN WATTS, DR YOKO Hair Attending Unavailzuly RIZVI JR, DR YOKO Hair Consulting Unavailzuly RIZVI JR, DR YOKO Hair Admitting Unavailabl e SARBJIT, DR BAZAN Primary Care Unavailable AUTUMN WATTS, DR YOKO Hair Attending Unavailzuly e MEGHAN RAMIREZ Consulting Unavailable JOSELINE PARKER Consulting Unavailable SARBJIT, DR BAZAN Consulting Unavailable SARBJIT, DR BAZAN Primary Care Unavailable SARBJIT, DR BAZAN Admitting Unavailable SARBJIT, DR BAZAN Attending Unavailable LEELA BOCANEGRA Admitting Unavailable AAMIR, DR JORDAN Gonzalez Consulting Unavailable SARBJIT, DR BAZAN Primary Care Unavailable LEELA BOCANEGRA Attending Unavailable DALJIT, LEELA Consulting Unavailable AUTUMN WATTS, DR YOKO Hair Admitting Unavailzuly RIZVI JR, DR YOKO Hair Attending Unavailzuly e AAMIR, DR JORDAN Gonzalez Consulting Unavailable SARBJIT, DR BAZAN Primary Care Unavailable AUTUMN WATTS, DR YOKO Hair Consulting Unavailzuly e SARBJIT, DR BAZAN Primary Care Unavailable MEGHAN HINDS Admitting Unavailable MEGHAN HINDS Attending Unavailable MEGHAN HINDS Consulting Unavailable Komal Nguyen II Primary Care Provider [phone] Komal Nguyen II Primary Care Provider [phone] GEOVANY Nguyen Primary Care Provider MD Ivan Barnhart Attending Provider [phone] GEOVANY Nguyen Primary Care Provider MD Ivan Barnhart Attending Provider Rizvi, Yoko L Attending Unavailable Rizvi, Yoko L Referring Unavailable Rizvi, Yoko L Admitting Unavailable JIL, MASHA E Admitting Unavailable JIL, MASHA E Attending Unavailable Rizvi, Yoko L Admitting Unavailable Rizvi, Yoko L Attending Unavailable Rizvi, Yoko L Referring Unavailable Rizvi, Yoko L Attending Unavailable Rzivi, Yoko L Referring Unavailable Rizvi, Yoko L Attending Unavailable Rizvi, Yoko L Attending Unavailable Rizvi, Yoko L Attending Unavailable Rizvi, Yoko L Attending Unavailable Rizvi, Yoko L Attending Unavailable Rizvi, Yoko L Attending Unavailable Unavailable Unavailable Komal Nguyen MD Primary Care Provider KOMAL NGUYEN Primary Care Unavailable SANTACROCE, LORRI Consulting Unavailable HAREVY, ADDISON Attending Unavailable HARVEY, ADDISON Admitting Unavailable [...] Provider ANAMARIA Henning-Daniella Rascon Other Provider ZACH Coffey-STAKE DRIVER-C Mookie Nichols Other Provider [phone] MD Silvestre Grover Other Provider ZACH Armstrong Other Provider MD Lexy Chappell Other Provider MD Stanley Burt Other Provider [phone] MD Rhonda Rawls Other Provider [phone] DO Colten Xavier Other Provider MD Blank Gross Other Provider MD Eriberto Yang Other Provider MD Jamel Noe Other Provider DO Dejuan Tuttle Other Provider MD Chau Lara Attending Provider Nguyen II, Dr. Komal Mckeon Primary [facility] [place] vailable Nguyen II, Dr. Komal Mckeon [facility] [place] vailable Nguyen II, Dr. Komal Mckeon [facility] [place] vailable Nguyen II, Dr. Komal Mckeon [facility] Solange vailable Rizvi, Ms. Melonie Hanley Attending Unavai lable Rizvi, Ms. Melonie Hanley Referring Unavai lable Kiko, Dr. Baltazar Laws Referring Unava ilable Sarbjit II, Dr. Komal Mckeon [facility] Sol[place] vailable Kiko, Dr. Baltazar Laws Attending Unava ilable Nguyen, II [facility] Care Provider MD Silvestre Grover Admit Provider MD Silvestre Grover Attending Provider [phone] HEATHER Potter Other Provider Unavailable HEATHER Mendoza Other Provider Unavailable HEATHER Lo Other Provider Unavailable HEATHER Renner Other Provider Unavailable HEATHER Justin Other Provider Unavailable HEATHER Leone Other Provider Unavailable MD Kevin Leo Other Provider ZACH Leon Other Provider DO Meri Blanco Other Provider [phone] MD Ubaldo Calvo Other Provider DO Mateo [...] Provider Komal Nguyen MD Primary Care Provider Komal Nguyen MD Unavailable BarnhartIvan J Attending Unavailable KOMAL NGUYEN Primary Care Unavailable Barnhart, Ivan J Admitting Unavailable KOMAL NGUYEN Primary Care Unavailable Barnhart, Ivan J Admitting Unavailable Barnhart, Ivan J Attending Unavailable Barnhart, Ivan J Attending Unavailable NGUYEN, KOMAL Primary Care Unavailable Barnhart, Ivan J Admitting Unavailable Barnhart, Ivan J Attending Unavailable NGUYEN, KOMAL Primary Care Unavailable Barnhart, Ivan J Admitting Unavailable NGUYEN, KOMAL Primary Care Unavailable Barnhart, Vian J Admitting Unavailable Barnhart, Ivan J Attending Unavailable Barnhart, Ivan J Attending Unavailable NGUYEN, KOMAL Primary Care Unavailable Barnhart, Ivan J Admitting Unavailable Barnhart, Ivan J Attending Unavailable NGUYEN, KOMAL Primary Care Unavailable Barnhart, Ivan J Admitting Unavailable BALTAZAR HOOVER Attending Unavailable KOMAL NGUYEN Primary Care Unavailable BALTAZAR HOOVER Referring Unavailable KOMAL NGUYEN Primary Care Unavailable GEOVANY Nguyen Primary Care Provider MD Eriberto Rizvi Emergency Provider Zamzam BRIDGES, Jadyn Hagen Attending Unavailable Zamzam BRIDGES, Jadyn Hagen Attending Unavailable GEOVANY Nguyen Primary Care Provider DO Dg Armendariz Emergency Provider DO Mateo Luo Admit Provider DO Mateo Horne Attending Provider [phone] DO Jamel Packer Other Provider MD Abi Biswas Other Provider MD Silvestre Grover Other Provider MD Silvestre Grover Admit Provider MD Silvestre Grover Attending Provider [phone] Komal Nguyen II Primary Care Provider Dg Armendarzi DO Emergency Provider Mateo Luo DO Admit Provider Mateo Horne DO Attending Provider Reilly BRIDGES, Silvestre Other Provider Jamel Packer DO Other Provider True BRIDGES, Abi Hair Other Provider Reilly BRIDGES, Silvestre Admit Provider Reilly BRIDGES, Silvestre Attending Provider Tariq RN, Libby Other Provider Unavailable Kelly RN, Melva Other Provider Unavailable Zurdo RN, Rocio Other Provider Unavailable Vasu RN, Chayito Other Provider Unavailable Lang RN, Alem Other Provider Unavailable Ahmet BRIDGES, Kevin Other Provider Meri Blanco DO Other Provider Umesh BRIDGES, Ubaldo Other Provider Mateo Horne DO Other Provider Anette BRIDGES, Tyson Other Provider Lam BRIDGES, Marsha Other Provider [phone] Danie Calles DO Other Provider Keaton Reddy MD Other Provider Unavailable Meera Vargas APRN Other Provider Reece BRIDGES, Eliezer Other Provider [phone] Dustin Stapleton MD Other Provider Ute Colvin MD Other Provider Chau Lara MD Other Provider Danie Jaramillo DO Other Provider Chetan Gray MD Other Provider Cuong Dos Santos MD Other Provider Ana DOG POUND ATTENDANT-C, Candida Hickman Other Provider Arjun SERRANO, Manuel Ceja Other Provider Unavailable Kushal Vizcarra MD Other Provider Gennaro BRIDGES, Torsten Other Provider Edward BRIDGES, Dudley Other Provider Mo Bauer MD Other Provider Unavailable Elizabeth BRIDGES, Markus Other Provider Juan DO Sofia Other Provider Dakota DO, Zia Friedman Other Provider Susanne Sharma APRN Other Provider Dru Reveles DO Other Provider Greg BRIDGES, Jarret Ceja Other Provider Yuki Rizvi APRN Other Provider Queenie Shepherd APRN Other Provider [phone] Danni BRIDGES, Suraj Other Provider Komal Albright MD Other Provider [phone] [place] GARCIA Other Provider Иван Carreon DO Other Provider Edward BRIDGES, Bharathi Garcia Other Provider Vince Shirley MD Other Provider [phone] Nikole Jaeger APRN Other Provider Kenyon BRIDGES, Kaz Other Provider Kamaljit Melo MD Other Provider Mariana Xiong RN Other Provider Unavailable Juli Thomas APRN Emergency Provider Danie Jaramillo DO Admit Provider Danie Jaramillo DO Attending Provider [phone] REAL TUTTLE Attending Unavailable DARINEL SMITH Attending Unavailable STANLEY SAUNDERS Referring Unavailable ANDERSON MCKINNON Attending Unavailable STANLEY SAUNDERS Referring Unavailable ALEM SAMPSON Attending Unavailable STANLEY SAUNDERS Referring Unavailable ANDERSON MCKINNON Attending Unavailable STANLEY SAUNDERS Referring Unavailable ANDERSON MCKINNON Attending Unavailable CHIP, CHRISTOPHER Referring Unavailable PRATIBHA, ANDERSON Attending Unavailable CHIP, CHRISTOPHER Referring Unavailable TATTERSALL, ALEM Attending Unavailable CHIP, CHRISTOPHER Referring Unavailable NGUYENKOMAL B Attending Unavailable TATTERSALL, ALEM Attending Unavailable CHIP, CHRISTOPHER Referring Unavailable TATTERSALL, ALEM Attending Unavailable CHIP, CHRISTOPHER Referring Unavailable TATTERSALL, ALEM Attending Unavailable CHIP, CHRISTOPHER Referring Unavailable TATTERSALL, ALEM Attending Unavailable CHIP, CHRISTOPHER Referring Unavailable NGUYEN, KOMAL B Attending Unavailable NGUYEN, KOMAL B Attending Unavailable TATTERSALL, ALEM Attending Unavailable CHIP, CHRISTOPHER Referring Unavailable TATTERSALL, ALEM Attending Unavailable CHIP, CHRISTOPHER Referring Unavailable REAL TUTTLE Attending Unavailable HEMAIDE MCGARRY Attending Unavailable HEMAIDE MCGARRY Referring Unavailable TATTERSGAGE, ALEM Attending Unavailable CHIP, CHRISTOPHER Referring Unavailable NGUYEN, KOMAL B Attending Unavailable CHIP, CHRISTOPHER Attending Unavailable LEELA BOCANEGRA Attending Unavailable REAL TUTTLE Attending Unavailable MOOKIE COFFEY Attending Unavailable DARINEL SMITH Attending Unavailable CHIP, CHRISTMANUEL Attending Unavailable REAL TUTTLE Attending Unavailable LEELA BOCANEGRA Attending Unavailable Eriberto Rizvi Admitting Unavailable Eriberto Rizvi Attending Unavailable Nguyen, Komal Primary Care Unavailable Nguyen, Komal Primary Care Unavailable Ivan Barnhart Attending Unavailable Ivan Barnhart Admitting Unavailable Mateo Horne Attending Unavailabl e Christinm, Mateo Admitting Unavailabl e Nguyen, Komal Primary Care Unavailable Silvestre Grover Consulting Unavailable Jamel Packer Consulting Unavailable Abi Biswas Consulting Unavaila aKmaljit Nash Admitting Unavailable Nguyen, Komal Primary Care Unavailable Kaz Prescott Attending Unavailable Gucci Jacques Consulting Unavailable Peyman Hall Consulting Unavailable Jamel Packer Consulting Unavailable aDnie Jaramillo Attending Unavailable Nguyen, Komal Primary Care Unavailable Danie Jaramillo Admitting Unavailable Nguyen, Komal Primary Care Unavailable Silvestre Grover Attending Unavailable Silvestre Grover Admitting Unavailable Libby Potter Consulting Unavailable Melva Mendoza Consulting Unavailable Rocio Renner Consulting Unavailable Chayito Leone Consulting Unavailable Alem Hinds Consulting Unavailable Kevin Leo Consulting Unavailable Bella, Ronobir Consulting Unavailable Ubaldo Calvo Consulting Unavailable Mateo Horne Consulting UnavailTyson Tinsley Consulting Unavailable Marsha Fritz Consulting Unavailable Danie Calles Consulting Unavailable Keaton Reddy Consulting Unavailable Meera Vargas Consulting UnavailEliezer Acharya Consulting Unavailable Dustin Stapleton Consulting Unavailable Ute Colvin Consulting Unavailable Chau Lara Consulting Unavailable Danie Jaramillo Consulting Unavailable Chetan Gray Consulting Unavailable Cuong Dos Santos Consulting Unavailable Candida Perez Consulting Unavailable Manuel Díaz Consulting Unavailable Kushal Vizcarra Consulting UnavailTorsten Goodman Consulting Unavailable Dudley Leon Consulting Unavailable Mo Bauer Consulting Unavailable Markus Johnson Consulting Unavailable Sofia Martinez Consulting Unavailable Zia Duncan Consulting Unavailable Susanne Sharma Consulting Unavailable Dru Reveles Consulting Unavailable Jarret Garza Consulting Unavailable Yuki Rizvi Consulting Unavailable Queenie Shepherd Consulting Unavailable Suraj Razo Consulting Unavailable Komal Albright Consulting Unavailable Cliff Cabral Consulting Unavailable Иван Carreon Consulting Unavailable Bharathi Leon Consulting Unavailable Vince Shirley Consulting UnaNikole Sanders Consulting Unavailable Kaz Prescott Consulting Unavailable Kamaljit Melo Consulting Unavailable Mariana Xiong Consulting Unavailable Allergies Allergy Classification Reported Allergen(s) Allergy Type Date of Onset Reaction(s) Facility (1 source) No Known Medication Allergies; Translations: [No Known Medication Allergies] Propensity to adverse reactions (disorder) [facility] Repository Medications Current Medications Medication Drug Class(es) Dates Sig (Normalized) Sig (Original) acetaminophen 325 mg / HYDROcodone bitartrate 5 mg oral tablet (16 sources) Opioid Agonist Start: 07-24-2024 take 1 tablet by mouth once daily as needed for pain HYDROcodone-acetam inophen (Cardale) 5-325 MG tablet Indications: Lumbosacral spondylosis without myelopathy Take 1 tablet by mouth Daily as needed for moderate pain or severe pain 30 tablet 07/24/2024 Active Start: 07-24-2024 take 1 tablet by gloria th once daily as needed for pain HYDROcodone-acetaminophen (Cardale) 5-325 MG tablet Indications: Lumbosacral spondylosis without myelopathy Take 1 tablet by mouth Daily as needed for moderate pain or severe pain 30 tablet 07/24/2024 Active Start: 07-09-2024 take 1 tablet by gloria th every six hours as needed for pain Hydrocodone-Acetaminophen 5-325 mg table t Active 1 TAB PO Every 6 hours as needed for pain July 09, 2024 12:00am Start: 12-28-2023 End: 07-24-2024 take 1 tablet by mouth every twenty-four hours as needed HYDROcodone-acetaminophen (Cardale) 5-325 MG tablet Take 1 tablet by mouth Daily as needed 12/28/2023 07/24/2024 Discontinued (Reorder) Aller-itin (3 sources) Start: 02-17-2022 take 1 tablet by mouth once daily Aller-itin Aller-itin, 1 tab, Oral, Daily, allergies Start Date: 02/17/22 Status: Ordered apixaban 5 mg oral tablet (20 sources) Factor Xa Inhibitor Start: 05-27-2024 take 1 tablet by mouth twice daily apixaban (Eliquis) 5 MG tablet Indications: Pulmonary embolism, unspecified chronicity, unspecified pulmonary embolism type, unspecified whether acute cor pulmonale present (CMS/HCC) TAKE 1 TABLET BY MOUTH TWICE DAILY 180 tablet 3 05/27/2024 Active Start: 05-10-2023 End: 06-09-2023 take 1 tablet by mouth every twelve hours Apixaban (Eliquis) 5 mg Tablet Active 5 MG PO Q12H 0 June 08, 2023 11:00pm Start: 06-08-2019 take 1 tablet by gloria th twice daily Eliquis 5 MG tablet Indications: Pulmonary embolism, unspecified chronicity, unspecified pulmonary embolism type, unspecified whether acute cor pulmonale present (CMS/HCC) TAKE 1 TABLET BY MOUTH TWICE DAILY 180 tablet 3 05/15/2023 Active Start: 12-18-2018 End: 05-10-2023 take 2 tablets by mouth twice daily, then take 1 tablet by mouth twice daily Apixaban 5 mg (74 tabs) tablets,dose pack Discontinued 0 PO .COMPLEX 74 December 17, 2018 11:00pm May 10, 2023 10:59pm take 10 mg by mouth twice daily for 7 days; then 5 mg twice daily Start: 12-18-2018 End: 05-10-2023 take 10 mg by mouth twice daily, then take 5 mg by mouth twice daily Apixaban Discontinued 0 PO .COMPLEX 74 December 18, 2018 12:00am May 10, 2023 11:59pm take 10 mg by mouth twice daily for 7 days; then 5 mg twice daily Comment on above: Take 5 mg by mouth t wice daily. ascorbic acid 500 mg oral tablet (3 sources) Vitamin C Start: 06-22-2024 take 1 tablet by mouth once daily Ascorbic Acid (Vitamin C) (Vitamin C) 500 mg Tablet Active 500 MG PO Daily 0 June 21, 2024 11:00pm baclofen 10 mg oral tablet (20 sources) gamma-Aminobutyric Acid-ergic Agonist Start: 10-20-2023 End: 07-17-2024 take 1 tablet by mouth three times daily at mealtime baclofen (Lioresal) 10 MG tablet Indications: Cervical stenosis of spinal canal TAKE 1 TABLET BY MOUTH WITH FOOD OR MILK 3 TIMES DAILY 270 tablet 1 07/17/2024 Active Start: 10-02-2023 take 1 tablet by gloria th three [...] tablet by mouth every eight hours Baclofen 10 mg tablet Discontinued 1 TAB PO Q8H December 14, 2018 11:00pm May 21, 2023 11:22am Start: 12-15-2018 End: 05-06-2022 baclofen (Lioresal) 10 mg ta blet TAKE 1 TABLET 3 TIMES DAILY NEEDED FOR MUSCLE SPASM. 0 02/27/2020 Active Comment on above: Take 10 mg by mouth. cephalexin 500 mg oral capsule (13 sources) Cephalosporin Antibacterial Start: 08-09-202 2 take 1 capsule by mouth every twelve hours Keflex 500 mg Cap 500 mg = 1 cap(s), Oral, q12hr, # 14 cap(s), Refills(s) 0, Pharmacy: [id number], 172, cm, 03/29/22 11:26:00 EDT, Height/Length Dosing, 150.9, kg, 03/29/22 11:26:00 EDT, Weight Dosing Start Date: 03/29/22 Status: Ordered Start: 03-03-2022 End: 03-08-2022 take 1 capsule by mouth every twelve hours Keflex 500 mg Cap 500 mg = 1 cap(s), Oral, q12hr, X 5 day(s), # 10 cap(s), Refills(s) 0, Pharmacy: [id number], 172, cm, 02/18/22 6:45:00 EDT, Height/Length Dosing, 150.9, kg, 02/18/22 6:45:00 EDT, Weight Dosing Start Date: 03/03/22 Stop Date: 03/08/22 Status: Ordered Start: 01-20-2019 End: 05-10-2023 take 1 capsule by mouth every six hours Cephalexin (Keflex) 500 mg capsule Discontinued 500 MG PO Q6H 28 January 19, 2019 11:00pm May 10, 2023 10:59pm docosahexaenoic acid 120 mg / eicosapentaenoic acid 180 mg oral capsule (16 sources) take 2 capsules by mouth in the morning omega-3 (Fish Oil) 1000 MG capsule Take 2 capsules by mouth in the morning. Active docosahexaenoic acid 144 mg / eicosapentaenoic acid 216 mg / vitamin e 2 unt oral capsule (11 sources) Start: 8 take 1 capsule by mouth twice daily Shaniko-3 Fatty Acids-Fish Oil (Fish Oil) 360-1,200 mg Capsule Active 1 CAP PO Twice daily December 26, 2017 11:00pm doxycycline hyclate 100 mg oral tablet (2 sources) Tetracycline- class Drug Start: 4 End: 4 doxycycline (Vibra-Tabs) 100 MG tablet Indications: Acute non-recurrent sinusitis of other sinus Take 1 tablet (100 mg) by mouth in the morning and 1 tablet (100 mg) before bedtime. Do all this for 10 days. Take with a full glass of water and do not lie down for at least 30 minutes after.. 20 tablet 07/24/2024 08/03/2024 Active Fish Oils (11 sources) Start: 2 take 1200 mg by mouth twice daily Fish Oil 1,200 mg, Oral, BID, Prophylaxis Start Date: 12/07/21 Status: Ordered Start: 12-07-2021 Fish Oil Oral Start Date: 12/07/21 Status: Ordered take 1 capsule by [facility] twice daily Fish Oil 1200 MG Oral Capsule Take 1 capsule twice daily Quantity: 0 Refills: 0 Ordered: 07-Sep-2022 DO Active furosemide 20 mg oral tablet (20 sources) Loop Diuretic Start: 05-18-2021 End: 07-03-2024 take 1 tablet by mouth in the morning furosemide (Lasix) 20 MG tablet Indications: Edema, unspecified type Take 1 tablet (20 mg) by mouth in the morning. 100 tablet 3 08/22/2023 Active gabapentin 300 mg oral capsule (20 sources) Anti-epileptic Agent Start: 10-30-2023 End: 10-29-2024 take 1 capsule by mouth in the morning gabapentin (Neurontin) 300 MG capsule Indications: Diabetic Neuropathy Take 1 capsule (300 mg) by mouth in the morning and 1 capsule (300 mg) before bedtime. 180 capsule 3 10/30/2023 10/29/2024 Active Start: 07-05-2019 End: 10-29-2024 take 1 capsule by mouth in the morning gabapentin (Neurontin) 300 MG capsule Indications: Diabetic Neuropathy Take 1 capsule (300 mg) by mouth in the morning and 1 capsule (300 mg) before bedtime. 180 capsule 3 10/30/2023 10/29/2024 Active Start: 07-05-2019 take [address] [facility] twice daily gabapentin (NEURONTIN) 300 mg capsule Take 300 mg by mouth twice daily. 5 07/05/2019 Active Comment on above: Take 300 mg by mouth twice daily. hydrALAZINE hydrochloride 25 mg oral tablet (20 sources) Arteriolar Vasodilator Start: 4 End: 4 take 1 tablet by mouth twice daily Hydralazine 25 mg Tablet Active 25 MG PO Twice daily 60 July 03, 2024 1:12pm Start: 12-07-2021 hydrALAZINE 50 mg Start Date: 12/07/21 Status: Ordered Start: 12-27-2017 End: 07-24-2024 take 1 tablet by mouth twice daily at mealtime hydrALAZINE (Apresoline) 50 MG tablet Indications: Chronic cerebral ischemia TAKE 1 TABLET BY MOUTH TWICE DAILY WITH FOOD 180 tablet 3 04/16/2024 07/24/2024 Discontinued (Side effects) Start: 12-27-2017 take 100 mg by mouth [...] Date: 12/07/21 Status: Ordered Start: 03-04-2017 End: 06-22-2024 take 1 tablet by mouth once daily triamterene-hydrochlorothiazide (Maxzide -25) 37.5-25 MG tablet Indications: Benign essential hypertension (CMS/HCC) Take 1 tablet by mouth Daily 100 tablet 3 11/17/2023 Active take 1 tablet by gloria th in the morning triamterene-hydrochlorothiazide (Maxzide -25) 37.5-25 MG tablet Take 1 tablet by mouth in the morning. 0 Active Comment on above: Take by mouth once d aily. lactobacillus rhamnosus gg [id number] unt oral capsule (1 source) Start: 10-17-19 23 lactobacillus (CULTURELLE) capsule 1 capsule lidocaine 0.04 mg/mg medicated patch (2 sources) Antiarrhythmic, Amide Local Anesthetic Start: 07-03-20 24 apply 1 dose topically once daily Lidocaine (Lidocaine Pain Relief) 4 % Adhesive Patch,Medicated Active 2 PATCH TOPICAL Daily 60 July 03, 2024 12:00am lisinopril 20 mg oral tablet (20 sources) Angiotensin Converting Enzyme Inhibitor Start: 03-04-20 End: 07-03-20 24 take 1 tablet by mouth once daily [...] Tablet Active 10 MG PO Daily December 26, 2017 11:00pm take 1 capsule by mo ut once daily loratadine 10 mg capsule Take [...] Vitamins-Minerals (GNP ONE DAILY MENS 50+ADVANCED PO) (16 sources) Start: 06-30-2009 take 1 tablet by mouth once daily at mealtime Multiple Vitamins-Minerals (GNP ONE DAILY MENS 50+ADVANCED PO) take 1 tablet by ORAL route every day with food Oral 06/30/2009 Active Start: 06-30-2009 take 1 tablet by gloria th once daily at mealtime Multiple Vitamins-Minerals (GNP ONE DAILY MENS 50+ADVANCED PO) take 1 tablet by ORAL route every day with food Oral 0 06/30/2009 Active Zhyizpsi-Dvr-Lz-Lycopen-Lute in (Adults 50 Plus) 0.4-300-250 mg-mcg-mcg Tablet (11 sources) Start: 12-27-2017 take 1 tablet by mouth once daily Vgwohkih-Xuv-As-Lycopen-Lutein (Adults 50 Plus) 0.4-300-250 mg-mcg-mcg Tablet Active 1 TAB PO Daily December 26, 2017 11:00pm Start: 12-27-2017 take 1 tablet by gloria once daily Lyqqfgzq-Mye-Ed-Lycopen-Lutein (Adults 5 0 Plus) 0.4-300-250 mg-mcg-mcg Tablet Active 1 TAB PO Daily December 27, 2017 12:00am multivit-min/ferrous fumarate (MULTI VITAMIN ORAL) (1 source) take 1 tablet by mouth once daily multivit-min/ferrous fumarate (MULTI VITAMIN ORAL) Take 1 tablet by mouth once daily. 0 Active nebivolol 10 mg oral tablet (20 sources) Start: 2021 take 1 tablet by mouth once daily nebivolol (Bystolic) 10 MG tablet Indications: Benign essential hypertension (CMS/HCC) Take 1 tablet (10 mg) by mouth Daily 100 tablet 3 11/17/2023 Active Comment on above: Take 10 mg by mouth. nystatin 100 unt/mg topical powder (20 sources) Polyene Antifungal Start: 2022 nystatin (Mycostatin) [id number] UNIT/GM powder APPLY TO THE AFFECTED AREA(S) THREE TIMES DAILY FOR 30 DAYS 06/09/2023 Active Start: 06-09-2023 End: 06-19-2024 Nystatin (Nystop) 100,000 un it/gram Powder Discontinued 1 APPLIC TOPICAL Three times daily 09 19June 08, 2023 11:00pm June 19, 2024 9:38am omega 7-qoo-elj-fish oil 360 mg-108 mg- 180 mg-1,200 mg capsule (1 source) omega 3-dha-epa- fish oil 360 mg-108 mg- 180 mg-1,200 mg capsule TAKE DIRECTED. 0 Active Shaniko-3 Fatty Acids (FISH OIL) 1200 MG CAPS (1 source) Start: 06-08-2022 take 1 capsule by mouth at bedtime Shaniko-3 Fatty Acids (FISH OIL) 1200 MG CAPS Take 1,200 mg by mouth in the morning and at bedtime 0 06/08/2022 Active ondansetron (ZOFRAN-ODT) disintegrating tablet 4 mg (1 source) Start: 10-15-2022 ondansetron (ZOFRAN-ODT) disintegrating tablet 4 mg predniSONE 5 mg oral tablet (20 sources) Start: 07-03-2024 take 3 tablets by mouth once daily Prednisone 5 mg Tablet Active 15 MG PO Daily 90 July 03, 2024 12:00am Start: 06-22-2024 End: 07-03-2024 take 3 tablets by mouth once daily Prednisone 20 mg Tablet Discontinued 60 MG PO Daily 3 June 21, 2024 11:00pm July 03, 2024 1:12pm Start: 06-22-2024 take 60 mg by mouth once daily Prednisone Active 60 MG PO Daily 3 June 22, 2024 12:00am Start: 05-27-2024 End: 11-23-2024 take 1.5 tablets by mouth once daily predniSONE (Deltasone) 10 MG tablet Indications: Myasthenia gravis (CMS/HCC) Take 1.5 tablets (15 mg) by mouth Daily 45 tablet 5 05/27/2024 11/23/2024 Active Start: 02-12-2024 End: 06-19-2024 Prednisone 10 mg tablet Discontinued 60 MG PO Daily February 11, 2024 11:00pm June 19, 2024 9:37am administer with food or milk Start: 02-12-2024 End: 06-19-2024 take 60 mg by mouth once daily at mealtime Prednisone Discontinued 60 MG PO Daily February 12, 2024 12:00am June 19, 2024 10:37am administer with food or milk Start: 12-27-2017 End: 07-03-2024 take 1 tablet by mouth once daily Prednisone 10 mg tablet Discontinued 10 MG PO Daily June 09, 2023 8:05am July 03, 2024 1:12pm On Hold: Resume on 06/24/24. Start: 06-08-2017 End: 12-27-2017 Prednisone Discontinued TABL ET December 27, 2017 12:00am December 27, 2017 5:01pm End: 09-20-2023 take 1 tablet by mouth once daily predniSONE (Deltasone) 5 mg tablet Take 1 tablet (5 mg) by mouth once daily. 0 09/20/2023 Discontinued (Duplicate order) pyridostigmine bromide 60 mg oral tablet (20 sources) Start: 06-11-2024 pyridostigmine (Mestinon) 60 MG tablet Indications: Myasthenia gravis (CMS/HCC) Take 1 tablet (60 mg) by mouth in the morning and 1 tablet (60 mg) at noon and 1 tablet (60 mg) in the evening and 1 tablet (60 mg) before bedtime. 360 tablet 1 06/11/2024 Active Start: 04-05-2017 End: 06-09-2023 take 1 tablet by mouth four times daily Pyridostigmine Drybranch 60 mg tablet Discontinued 1 TAB PO Four times daily December 26, 2017 11:00pm June 09, 2023 8:05am Start: 04-05-2017 pyridostigmine (MESTINON) 60 mg tablet Take 100 mg by mouth four times daily. 0 04/05/2017 Active Comment on above: Take 100 mg by mouth four times daily. simvastatin 40 mg oral tablet (20 sources) HMG-CoA Reductase Inhibitor Start: take 1 tablet by mouth once daily in the evening simvastatin (Zocor) 40 MG tablet Indications: Pure hypercholesterolemia (CMS/HCC) TAKE 1 TABLET BY MOUTH ONCE DAILY IN THE EVENING 90 tablet 3 08/31/2023 Active Comment on above: Take by mouth once d aily. spironolactone 25 mg oral tablet (5 sources) Aldosterone Antagonist Start: End: take 1 tablet by mouth once daily Spironolactone 25 mg Tablet Active 25 MG PO Daily July 03, 2024 1:12pm Completed/Discontinued Medications Medication Drug Class(es) Dates Sig (Normalized) Sig (Original) acetaminophen 325 mg oral tablet (4 sources) Start: 06-22-2024 End: 07-09-2024 take 1-3 tablets by mouth every four hours as needed for pain Acetaminophen (Tylenol) 325 mg Tablet Discontinued 650 MG PO Q4H as needed for Pain Scale 1 - 3 or fever 0 June 21, 2024 11:00pm July 09, 2024 6:27pm Start: 06-22-2024 take 2 tablets by mo uth every four hours Acetaminophen (Tylenol) 325 mg Tablet Active 650 MG PO Q4H 0 June 22, 2024 12:00am Start: 10-15-2022 acetaminophen (TYLENOL) tablet 650 mg Albuterol (9 sources) beta2-Adrenergic Agonist Start: 12-15-2018 End: 05-10-2023 [...] PUFF INHALATION Q4H December 15, 2018 12:00am Albuterol Sulfate 90 mcg/actuation HFA aerosol inhaler (2 sources) Start: 12-15-2018 End: 05-10-2023 take 1 puff(s) by inhalation every four hours as needed Albuterol Sulfate 90 mcg/actuation HFA aerosol inhaler Discontinued 2 PUFF INHALATION Q4H as needed for Shortness Of Breath December 14, 2018 11:00pm May 10, 2023 10:59pm amiodarone hydrochloride 200 mg oral tablet (20 sources) Antiarrhythmic Start: 05-19-2023 End: 06-19-2024 take 1 tablet by mouth once daily in the morning Amiodarone 200 mg Tablet Discontinued 200 MG PO Every morning June 10, 2023 9:37am June 19, 2024 9:36am amLODIPine 5 mg oral tablet (15 sources) Dihydropyridine Calcium Channel Ha Start: 12-27-2017 End: 09-20-2023 take 1 tablet by mouth once daily Amlodipine 5 mg tablet Discontinued 5 MG PO Daily December 26, 2017 11:00pm May 10, 2023 10:59pm aspirin 81 mg delayed release oral tablet (20 sources) Platelet Aggregation Inhibitor, Nonsteroidal Anti-inflammatory Drug Start: 12-18-2018 End: 05-10-2023 take 1 tablet by mouth once daily Aspirin (Aspir-Low) 81 mg tablet,delayed release (DR/EC) Discontinued 81 MG PO Daily December 17, 2018 11:00pm May 10, 2023 10:59pm Start: 02-21-2018 End: 05-06-2022 take 1 tablet by mouth once daily Aspirin 325 mg Tablet Discontinued 325 MG PO Daily February 20, 2018 11:00pm December 18, 2018 11:27am Start: 12-27-2017 End: 02-14-2018 take 1 tablet by mouth once daily Aspirin 325 mg Tablet Discontinued 325 MG PO Daily December 26, 2017 11:00pm February 14, 2018 8:26am Comment on above: Take 325 mg by mouth once daily. carvedilol 12.5 mg oral tablet (2 sources) alpha-Adrenergic Ha, beta-Adrenergic Ha Start: End: take 12.5 mg by mouth once daily at mealtime 12.5 mg, Oral, DAILY, First dose on 10/16/22 at 1300, Until Discontinued Administer with food to minimize the risk of orthostatic hypotension cefepime (MAXIPIME) 2,000 mg in sterile water 20 mL IV syringe (1 source) Start: End: cefepime (MAXIPIME) 2,000 mg in sterile water 20 mL IV syringe ciprofloxacin 500 mg oral tablet (5 sources) Quinolone Antimicrobial Start: take 1 tablet by mouth once daily Cipro 500 mg Tab 500 mg = 1 tab(s), Oral, Daily, take 1 day prior to procedure and 1 tab after procedure, # 2 tab(s), Refills(s) 0, Pharmacy: [id number] Start Date: 12/07/21 Status: Ordered cocoa butter 0.884 mg/mg / phenylephrine hydrochloride 0.0025 mg/mg rectal suppository (3 sources) alpha-1 Adrenergic Agonist Start: End: Phenylephrine-Oriana a Butter (Preparation H(Pe,Cb)) 0.25-88.44 % Suppository Discontinued 1 SUPP AZ Twice daily as needed for hemorrhoids 0 June 21, 2024 11:00pm July 09, 2024 6:28pm hydroCHLOROthiazide 12.5 mg / lisinopril 20 mg oral tablet (1 source) Thiazide Diuretic, Angiotensin Converting Enzyme Inhibitor End: lisinopril-hydroCH LOROthiazide (PRINZIDE;ZESTORET IC) 20-12.5 MG per tablet Take by mouth daily 0 10/18/2022 Discontinued (LIST CLEANUP) metoprolol tartrate 25 mg oral tablet (13 sources) beta-Adrenergic Ha Start: End: take 1 tablet by mouth twice daily Metoprolol Tartrate 25 mg tablet Discontinued 25 MG PO Twice daily February 20, 2018 11:00pm December 15, 2018 6:56pm Comment on above: Take 25 mg by mouth twice daily. Multi Vitamin TABS (2 sources) Multi Vitamin TA BS TAKE 1 TABLET DAILY. Quantity: 0 Refills: 0 Ordered: 31-Aug-2021 DO Active MULTIVIT-MINERALS/FERROUS FUM (MULTI VITAMIN ORAL) (2 sources) MULTIVIT-MINERAL S/ FERROUS FUM (MULTI VITAMIN ORAL) Take by mouth once daily. 0 Active Comment on above: Take by mouth once d aily. naproxen sodium 220 mg oral tablet (12 sources) Nonsteroidal Anti-inflammatory Drug Start: End: take 2 tablets by mouth once daily Naproxen Sodium (Aleve) 220 mg Tablet Discontinued 2 TAB PO Daily December 26, 2017 11:00pm December 18, 2018 11:27am End: 05-06-2022 NAPROXEN ORAL Take by mouth. 0 05/06/2022 Discontinued (Course of therapy completed) Comment on above: Take by mouth. Shaniko-3 Fatty Acids, FISH OIL, 360-1,200 mg cap (2 sources) take 1 capsule by mouth twice daily Shaniko-3 Fatty Acids, FISH OIL, 360-1,200 mg cap Fish Oil 360 mg-1,200 mg capsule Take 1 capsule twice a day by oral route. 0 Active Comment on above: Fish Oil 360 mg-1,20 0 mg capsule Take 1 capsule twice a day by oral route. OMEGA-3 FATTY ACIDS-EPA ORAL (2 sources) OMEGA-3 FATTY ACIDS-EPA ORAL Take by mouth. 0 Active Comment on above: Take by mouth. pantoprazole 40 mg delayed release oral tablet (3 sources) Proton Pump Inhibitor Start: 06-22-20 End: 07-09-20 take 1 tablet by mouth twice daily Pantoprazole 40 mg Tablet,Delayed Release (Dr/Ec) Discontinued 40 MG PO Twice daily 0 June 21, 2024 11:00pm July 09, 2024 6:28pm phenazopyridine hydrochloride 100 mg oral tablet (3 [...] q12hr, # 30 tab(s), Refills(s) 0, Pharmacy: [id number] Start Date: 02/01/22 Status: Ordered Comment on above: Take 100 mg by mouth twice daily as needed. polyethylene glycol 3350 21752 mg powder for oral solution (1 source) Osmotic Laxative Start: 10-15-2022 17 g, Oral, DAILY PRN, Starting on 10/15/22 at 1920, Until Discontinued, Constipation First line therapy for constipation potassium chloride 10 meq extended release oral tablet (20 sources) Start: 06-22-2024 End: 07-03-2024 Potassium Chloride (Klor-Con 10) 10 mEq Tablet Extended Release Discontinued 10 MEQ PO 3x/Day with meals 0 3 June 21, 2024 11:00pm July 03, 2024 1:12pm Start: 06-22-2024 End: 07-03-2024 Potassium Chloride (Klor-Con M20) 20 mEq Tablet,Er Particles/Crystals Discontinued 20 MEQ PO Daily as needed for Hypokalemia 0 June 21, 2024 11:00pm July 03, 2024 1:12pm Start: 05-10-2023 End: 10-29-2024 take 1 tablet by mouth in the morning potassium chloride CR (Klor-Con M10) 10 MEQ ER tablet Indications: Hypokalemia Take 1 tablet (10 mEq) by mouth in the morning and 1 tablet (10 mEq) before bedtime. Take with food.. 180 tablet 3 10/30/2023 10/29/2024 Active Start: 10-18-2022 End: 10-18-2022 potassium chloride [...] above: Take 10 mEq by mouth . saccharomyces boulardii 250 mg oral capsule (2 sources) Start: 4 End: 4 take 1 capsule by mouth twice daily Saccharomyces Boulardii 250 mg Capsule Discontinued 250 MG PO Twice daily 60 30 July 03, 2024 12:00am July 09, 2024 6:29pm 1000 ml sodium chloride 9 mg/ml injection (4 sources) Start: 3 End: 3 0.9 % sodium chloride infusion Start: 10-15-2022 [...] mg / trimethoprim 160 mg oral tablet (11 sources) Dihydrofolate Reductase Inhibitor Antibacterial, Sulfonamide Antimicrobial Start: 02-23-2018 End: 12-15-2018 take 1 tablet by mouth twice daily Sulfamethoxazole-Trimethoprim (Bactrim Ds) 800-160 mg tablet Discontinued 1 TAB PO Twice daily February 22, 2018 11:00pm December 15, 2018 6:44pm traMADol hydrochloride 50 mg oral tablet (1 [...] Problem Classification Problem Date Documented Date Episodic/Chronic Acute and unspecified renal failure (3 sources) Acute renal failure syndrome; Translations: [Acute kidney failure, unspecified] Onset: 4 07-09-2024 Episodic Administrative/social admission (20 sources) Other reduced mobility; Translations: [Impaired mobility and activities of daily living] Onset: 4 05-16-2023 Episodic Comment on above: Problem List clean-u p per request of Phys. EHR Cmte Blindness and vision defects (3 sources) Eye / vision finding; Translations: [Unspecified visual disturbance] Onset: 4 07-09-2024 Episodic Cancer of bladder (20 sources) Malignant neoplasm of posterior wall of bladder; Translations: [Malignant neoplasm of lateral wall of urinary bladder] Onset: 2 Chronic Cardiac dysrhythmias (20 sources) Atrial fibrillation; Translations: [Unspecified atrial fibrillation] Onset: 3 05-18-2023 Chronic Comment on above: Problem List clean-u p per request of Phys. EHR Cmte Chronic kidney disease (20 sources) Chronic kidney disease stage 3; Translations: [Stage 3 chronic kidney disease] Onset: 4 05-11-2023 Chronic Comment on above: Problem List clean-u p per request of Phys. EHR Cmte Coagulation and hemorrhagic disorders (16 sources) Hypercoagulability state; Translations: [Other primary thrombophilia] Onset: 3 12-27-2022 Chronic Congestive heart failure; nonhypertensive (16 sources) Right ventricular failure; Translations: [Right heart failure, unspecified] Onset: 3 12-27-2022 Chronic Diabetes mellitus with complications (20 sources) Type 2 diabetes mellitus; Translations: [Type [...] [Pure hypercholesterolemia, unspecified] Onset: 2 12-03-2021 Chronic Esophageal disorders (3 sources) Gastroesophageal reflux disease; Translations: [Gastro-esophageal reflux disease without esophagitis] Onset: 4 06-23-2024 Chronic Essential hypertension (20 sources) Hypertensive disorder; Translations: [Essential (primary) hypertension] Onset: 2 12-03-2021 Chronic Comment on above: Problem List clean-u p per request of Phys. EHR Cmte Essential hypertension (1 source) Essential hypertension Onset: 8 Fever of unknown origin (4 sources) Fever; Translations: [Fever, unspecified] Onset: 3 Resolved: 3 Episodic Fluid and electrolyte disorders (20 sources) Hyponatremia; Translations: [Hypo-osmolality and hyponatremia] Onset: 3 Resolved: 3 Episodic Genitourinary symptoms [...] symptoms] Onset: 2 Chronic Malaise and fatigue (9 sources) Fatigue; Translations: [Chronic fatigue, unspecified] Onset: 4 12-21-2023 Chronic Mycoses (1 source) Pain in toe; Translations: [Tinea unguium] 06-10-2024 Episodic Neoplasms of unspecified nature or uncertain behavior (3 sources) Neoplasm of unspecified behavior of bladder; Translations: [NEOPLASM UNS BEHAVIOR OF BLADDER] Onset: 2 Episodic Osteoarthritis (16 sources) Osteoarthritis of joint of left elbow; Translations: [Primary osteoarthritis, left elbow] Onset: 3 12-27-2022 Chronic Other aftercare (3 sources) Other terminal operator (current) drug therapy; Translations: [OTH CAREER GUIDANCE COUNSELOR CURRENT DRUG THERAPY] Onset: 2 Episodic Other aftercare (4 sources) ferry terminal agent (current) use of anticoagulants; Translations: [Long-term (current) use of anticoagulants] Onset: 2 07-04-2024 Episodic Other aftercare (2 sources) Long-term current use of systemic steroid; Translations: [halfway (current) use of systemic steroids] Onset: 3 Episodic Other aftercare (2 sources) Long-term current use of anticoagulant; Translations: [halfway (current) use of anticoagulants] 06-23-2024 Episodic Other and ill-defined cerebrovascular disease (16 sources) Chronic cerebral ischemia; Translations: [Cerebral ischemia] Onset: 3 12-27-2022 Chronic Other and ill-defined cerebrovascular disease (16 sources) Small vessel cerebrovascular disease; Translations: [Cerebrovascular disease, unspecified] Onset: 3 12-27-2022 Chronic Other and ill-defined heart disease (16 sources) Cardiomegaly; Translations: [Cardiomegaly] Onset: 3 12-27-2022 [...] [BLADDER DISORDER UNSPECIFIED] Onset: 2 Chronic Other diseases of veins and lymphatics (1 source) Vascular insufficiency; Translations: [Venous insufficiency (chronic) (peripheral)] 06-10-2024 Episodic Other ear and sense organ disorders (20 sources) Hearing loss; Translations: [Unspecified hearing loss, unspecified ear] Onset: 4 12-27-2017 Chronic Comment on above: Problem List clean-u p per request of Phys. EHR Cmte Other gastrointestinal disorders (1 source) Dysphagia, oropharyngeal phase; Translations: [Dysphagia, oropharyngeal phase] 06-10-2023 Episodic Other hematologic conditions (5 sources) High troponin I level; Translations: [Other specified abnormalities of plasma proteins] 12-17-2018 Episodic Other injuries and conditions due to external causes (2 sources) Systemic inflammatory response syndrome; Translations: [Systemic inflammatory response syndrome (SIRS) of non-infectious origin without acute organ dysfunction] Onset: 3 Resolved: 3 Episodic Other lower respiratory disease (9 sources) Dyspnea, unspecified; Translations: [Other respiratory abnormalities] Onset: 8 06-19-2024 Episodic Other nervous system disorders (20 sources) Myasthenia gravis; Translations: [Myasthenia gravis without (acute) exacerbation] Onset: 3 12-07-2021 Chronic Other nervous system disorders (9 sources) 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 EHR Cmte Other nervous system disorders (10 sources) Myasthenia gravis with exacerbation; Translations: [Myasthenia gravis with (acute) exacerbation] 05-11-2023 Chronic Comment on above: Problem List clean-u p per request of Phys. EHR Cmte Other nervous system disorders (12 sources) Myasthenia gravis with (acute) exacerbation; Translations: [Myasthenia gravis with (acute) exacerbation] Onset: 4 05-21-2023 Chronic Other nervous system disorders (8 sources) Myasthenia gravis without (acute) exacerbation; Translations: [Myasthenia gravis without (acute) exacerbation] Onset: 4 05-21-2023 Chronic Other nervous system disorders (19 sources) Difficulty walking; Translations: [Difficulty in walking, not elsewhere classified] Onset: 3 09-21-2023 Chronic Other nervous system disorders (16 sources) Carpal tunnel syndrome; Translations: [Carpal tunnel syndrome, unspecified upper limb] Onset: 3 12-27-2022 Chronic Other nervous system disorders (16 sources) Ulnar neuropathy; Translations: [Lesion of ulnar nerve, unspecified upper limb] Onset: 3 12-27-2022 Chronic Other nervous system disorders (2 sources) Myasthenia gravis without exacerbation; Translations: [Myasthenia gravis without (acute) exacerbation] 10-05-2023 Chronic Other nervous system disorders (9 sources) Bilateral ulnar nerve disorder; Translations: [Lesion of ulnar nerve, bilateral upper limbs] Onset: 4 12-21-2023 Chronic Other nervous system disorders (1 source) Other chronic pain; Translations: [Other chronic pain] Onset: 4 Chronic Other nutritional; endocrine; and metabolic disorders (18 sources) Obesity; Translations: [Obesity, unspecified] Onset: 4 12-07-2021 Chronic Other nutritional; endocrine; and metabolic disorders (15 sources) Body mass index 40+ - severely obese; Translations: [Morbid obesity] Onset: 3 05-16-2023 Chronic Comment on above: Problem List clean-u p per request of Phys. EHR Cmte Other nutritional; endocrine; and metabolic disorders (2 [...] Chronic Other nutritional; endocrine; and metabolic disorders (18 sources) Obesity caused by energy imbalance; Translations: [Morbid (severe) obesity due to excess calories] Onset: 3 12-27-2022 Chronic Other nutritional; endocrine; and metabolic disorders (3 sources) Body mass index (BMI) 45.0-49.9, adult; Translations: [Body mass index (BMI) 45.0-49.9, adult ([facility])] Onset: 3 Chronic Other nutritional; endocrine; and metabolic disorders (2 sources) Severe obesity; Translations: [Class 3 severe obesity due to excess calories with serious comorbidity and body mass index (BMI) of 45.0 to 49.9 in adult ([facility])] 05-27-2024 Chronic Other upper respiratory disease (16 sources) Allergic rhinitis; Translations: [Other allergic rhinitis] Onset: 3 12-27-2022 Chronic Other upper respiratory infections (2 sources) Acute sinusitis; Translations: [Other acute sinusitis] 07-24-2024 Episodic Peripheral and visceral atherosclerosis (2 sources) Intermittent claudication of bilateral lower limbs co-occurrent and due to atherosclerosis; Translations: [Atherosclerosis of habematolel arteries of extremities with intermittent claudication, bilateral legs] 10-05-2023 Chronic Pulmonary heart disease (12 sources) Cor pulmonale; Translations: [Chronic pulmonary heart disease, unspecified] Onset: 3 06-05-2023 Chronic Pulmonary heart disease (20 sources) Pulmonary embolism; Translations: [Personal history of pulmonary embolism] Onset: 2 Resolved: 4 12-07-2021 Episodic Comment on above: Problem List clean-u p per request of Phys. EHR Cmte Residual codes; unclassified (9 sources) Obstructive sleep apnea of adult 12-07-2021 Chronic Residual codes; unclassified (20 sources) Obstructive sleep apnea syndrome; Translations: [Obstructive sleep apnea (adult) (pediatric)] Onset: 3 12-03-2021 Chronic Comment on above: Problem List clean-u p per request of Phys. 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 Spondylosis; intervertebral disc disorders; other back problems (20 sources) Lumbosacral spondylosis without myelopathy; Translations: [Cervical spondylosis] Onset: 3 12-07-2021 Chronic Spondylosis; intervertebral disc disorders; other back problems (20 sources) Cervical radiculopathy; Translations: [Radiculopathy, cervical region] Onset: 3 12-27-2022 Episodic Superficial injury; contusion (1 source) Contusion of eyeball and orbital tissues, right eye, initial encounter; Translations: [Contusion of eyeball and orbital tissues, right eye, initial encounter] Onset: 4 Episodic Syncope (1 source) Syncope and collapse; Translations: [Syncope and collapse] Onset: 4 Episodic Unclassified (2 sources) Dyspnea, unspecified / R06.00(ICD-9) Onset: 8 Urinary tract infections (20 sources) Urinary tract infection caused by Enterococcus; Translations: [Urinary tract infection, site not specified] 02-23-2018 Episodic Comment on above: Problem List clean-u p per request of Phys. EHR Cmte Viral infection (1 source) COVID-19; Translations: [COVID-19] Onset: 1 Past or Other Problems Problem Classification Problem Date Documented Da te Episodic/Chronic Immunizations and screening for infectious disease (4 sources) Encounter for immunization; Translations: [ENCOUNTER FOR IMMUNIZATION] Onset: 05-25-2021 Episodic Malaise and fatigue (20 sources) Malaise and fatigue; Translations: [Other malaise] Onset: 10-16-2022 Resolved: 10-18-2022 Episodic Other aftercare (11 sources) Taking high risk medication; Translations: [Other penitentiary (current) drug therapy] Onset: 09-20-2023 09-20-2023 Episodic Other connective tissue disease (20 sources) Calcaneal spur; Translations: [Calcaneal spur, unspecified foot] Onset: 12-27-2022 12-07-2021 Episodic Other connective tissue disease (9 sources) Weakness of face muscles; Translations: [Facial weakness] Onset: 12-21-2023 12-21-2023 Episodic Other connective tissue disease (9 sources) Cramp; Translations: [Cramp and spasm] Onset: 12-21-2023 12-21-2023 Episodic Other gastrointestinal disorders (15 sources) Oropharyngeal dysphagia; Translations: [Dysphagia, oropharyngeal phase] Onset: 11-17-2023 05-22-2023 Episodic Comment on above: Problem List clean-u p per request of Phys. EHR Cmte Other lower respiratory disease (20 sources) Dyspnea on exertion; Translations: [Other forms of dyspnea] Onset: 12-27-2022 12-27-2017 Episodic Comment on above: Problem List clean-u p per request of Phys. EHR Cmte Other lower respiratory disease (16 sources) Dyspnea; Translations: [Other respiratory abnormalities] Onset: 06-05-2023 06-05-2023 Episodic Other nervous system disorders (1 source) Parageusia; Translations: [PARAGEUSIA] Onset: 05-02-2021 Episodic Other nervous system disorders (2 sources) Anosmia; Translations: [ANOSMIA] Onset: 04-19-2021 Episodic Other nervous system disorders (16 sources) Loss of sense of smell; Translations: [Anosmia] Onset: 12-27-2022 12-27-2022 Episodic Other nervous system disorders (16 sources) Loss of taste; Translations: [Parageusia] Onset: 12-27-2022 12-27-2022 Episodic Other nervous system disorders (16 sources) Poor balance; Translations: [Other abnormalities of gait and mobility] Onset: 12-27-2022 12-27-2022 Episodic Other nervous system disorders (16 sources) H/O: musculoskeletal disease; Translations: [Personal history of other diseases of the nervous system and sense organs] Onset: 03-17-2023 03-17-2023 Episodic Other nervous system disorders (9 sources) Tremor; Translations: [Tremor, unspecified] Onset: 12-21-2023 12-21-2023 Episodic Other nervous system disorders (9 sources) Bradykinesia; Translations: [Other abnormal involuntary movements] Onset: 12-21-2023 12-21-2023 Episodic Other screening for suspected conditions (not mental disorders or infectious disease) (20 sources) Patient encounter status; Translations: [Encounter for screening for other disorder] Onset: 10-17-2022 Resolved: 11-17-2023 Episodic Comment on above: Problem List clean-u p per request of Phys. EHR Cmte Residual codes; unclassified (4 sources) Localized edema; Translations: [LOCALIZED EDEMA] Onset: 02-09-2021 Episodic Residual codes; unclassified (12 sources) Edema; Translations: [Edema] Onset: 06-05-2023 06-05-2023 Episodic Respiratory failure; insufficiency; arrest (adult) (18 sources) Acute respiratory failure; Translations: [Acute respiratory failure with hypoxia] Onset: 11-17-2023 Resolved: 11-17-2023 05-11-2023 Episodic Comment on above: Problem List clean-u p per request of Phys. EHR Cmte Unclassified (2 sources) Never smoked tobacco; Translations: [Never a smoker] Unclassified (1 source) Onset: 09-20-2023 09-20-2023 Results Test Name Value Interpretation Reference Range Facility Complete Blood Count Auto Di ffon 07-31-2024 Basophils (Bld) [#/Vol] 0.1 10*3/uL Normal 0.0-0.2 [facility] Comment on above: Result Comment: PERF ORMED BY: [place] [address] PATHOLOGIST [employer]ER RHONDA MCLEAN M.D. Performed By: #### C BC, MG, CMP #### [address] Basophils/100 WBC (Bld) 0.8 % Normal . [facility] Comment on above: Performed By: #### C BC, MG, CMP #### [address] Eosinophils (Bld) [#/Vol] 0.4 10*3/uL Normal 0.0-0.45 [facility] Comment on above: Performed By: #### C BC, MG, CMP #### [address] Eosinophils/100 WBC (Bld) 3.7 % Normal . [facility] Comment on above: Performed By: #### C BC, MG, CMP #### [address] Erythrocyte distribution width (RBC) [Ratio] 15.0 % High 12.0-14.8 [facility] Comment on above: Performed By: #### C BC, MG, CMP #### [address] Hematocrit (Bld) [Volume fraction] 38.6 % Low 38.8-50.0 [facility] Comment on above: Performed By: #### C BC, MG, CMP #### [address] Hemoglobin (Bld) [Mass/Vol] 13.0 g/dL Normal 13.0-17.0 [facility] Comment on above: Performed By: #### C BC, MG, CMP #### [facility] [address] [place] [address] [place] Lymphocytes (Bld) [#/Vol] 2.1 10*3/uL Normal 1.00-4.8 [facility] Comment on above: Performed By: #### C BC, MG, CMP #### [facility] [address] [place] [address] [place] Lymphocytes/100 WBC (Bld) 21.4 % Normal . [facility] Comment on above: Performed By: #### C BC, MG, CMP #### [facility] [address] MCH (RBC) [Entitic mass] 30.6 pg Normal 27.5-35.2 [facility] Comment on above: Performed By: #### C BC, MG, CMP #### [address] MCV (RBC) [Entitic vol] 91.1 fL Normal 83.5-101 [facility] Comment on above: Performed By: #### C BC, MG, CMP #### [address] Mean Corpuscular HGB Conc 33.6 g/dL Normal 32.5-35.6 [facility] Comment on above: Performed By: #### C BC, MG, CMP #### [facility] [address] [place] [address] [place] Monocytes (Bld) [#/Vol] 1.1 10*3/uL High 0.0-0.8 [facility] Comment on above: Performed By: #### C BC, MG, CMP #### [facility] [address] [place] [address] [place] Monocytes/100 WBC (Bld) 10.8 % Normal . [facility] Comment on above: Performed By: #### C BC, MG, CMP #### [facility] [address] Neutrophils (Bld) [#/Vol] 6.2 10*3/uL Normal 1.8-7.7 [facility] Comment on above: Performed By: #### C BC, MG, CMP #### [address] Neutrophils/100 WBC (Bld) 63.3 % Normal . [facility] Comment on above: Performed By: #### C BC, MG, CMP #### [address] NRBC% 0.3 /100{WBC} Normal 0-0.5 [facility] Comment on above: Performed By: #### C BC, MG, CMP #### [address] Platelet mean volume (Bld) [Entitic vol] 8.9 fL Normal 6.6-10.1 [facility] Comment on above: Performed By: #### C BC, MG, CMP #### [address] Platelets (Bld) [#/Vol] 227 10*3/uL Normal 150-450 [facility] Comment on above: Performed By: #### C BC, MG, CMP #### [address] RBC (Bld) [#/Vol] 4.24 10*6/uL Normal 3.90-5.60 [facility] Comment on above: Performed By: #### C BC, MG, CMP #### [address] WBC (Bld) [#/Vol] 9.8 10*3/uL Normal 4.1-10.5 [facility] Comment on above: Performed By: #### C BC, MG, CMP #### [address] Comprehensive Metabolic Pane radha 07-31-2024 Albumin [Mass/Vol] 3.1 g/dL Low 3.5-5.7 [facility] Comment on above: Performed By: #### C BC, MG, CMP #### [address] Albumin/Globulin [Mass ratio] 1.2 {ratio} Normal [facility] Comment on above: Performed By: #### C BC, MG, CMP #### [address] ALP [Catalytic activity/Vol] 49 U/L Normal 34-104 [facility] Comment on above: Performed By: #### C BC, MG, CMP #### [address] ALT [Catalytic activity/Vol] 18 U/L Normal 7-52 [facility] Comment on above: Performed By: #### C BC, MG, CMP #### [address] Anion gap [Moles/Vol] 10.4 mmol/L Normal 6.0-15.0 [facility] Comment on above: Performed By: #### C BC, MG, CMP #### [address] AST [Catalytic activity/Vol] 16 U/L Normal 13-39 [facility] Comment on above: Performed By: #### C BC, MG, CMP #### [address] Bilirubin [Mass/Vol] 0.8 mg/dL Normal 0.3-1.0 [facility] Comment on above: Performed By: #### C BC, MG, CMP #### [place] [address] [place] Calcium [Mass/Vol] 8.9 mg/dL Normal 8.6-10.3 [facility] Comment on above: Performed By: #### C BC, MG, CMP #### [place] [address] [place] Chloride [Moles/Vol] 102 mmol/L Normal 98-107 [facility] Comment on above: Performed By: #### C BC, MG, CMP #### [place] [address] [place] CO2 [Moles/Vol] 33.0 mmol/L High 21.0-31.0 [facility] Comment on above: Performed By: #### C BC, MG, CMP #### [address] Creatinine [Mass/Vol] 1.05 mg/dL Normal 0.70-1.30 [facility] Comment on above: Performed By: #### C BC, MG, CMP #### [place] [address] [place] Creatinine Clr Calc Pharmacy 75.84 Normal [facility] Comment on above: Performed By: #### C BC, MG, CMP #### [address] GFR/1.73 sq M.predicted MDRD (S/P/Bld) [Vol rate/Area] mL/min/{1.73_m2} Normal [facility] Comment on above: Performed By: #### C BC, MG, CMP #### [address] Globulin (S) [Mass/Vol] 2.5 g/dL Normal [facility] Comment on above: Performed By: #### C BC, MG, CMP #### [address] Glucose [Mass/Vol] 100 mg/dL Normal 70-100 [facility] Comment on above: Result Comment: [place] Glucose Reference Range is dependent on time and content of last meal. Glucose of more than 200 mg/dL in a nonstressed, ambulatory subject supports the diagnosis of Diabetes Mellitus. ADA recommended reference range Performed By: #### C BC, MG, CMP #### [address] Potassium [Moles/Vol] 3.4 mmol/L Low 3.5-5.1 [facility] Comment on above: Performed By: #### C BC, MG, CMP #### [address] Protein [Mass/Vol] 5.6 g/dL Low 6.4-8.9 [facility] Comment on above: Performed By: #### C BC, MG, CMP #### [facility] [address] Sodium [Moles/Vol] 142 mmol/L Normal 136-145 [facility] Comment on above: Performed By: #### C BC, MG, CMP #### [facility] [address] Urea nitrogen [Mass/Vol] 18 mg/dL Normal 7-25 [facility] Comment on above: Performed By: #### C BC, MG, CMP #### [address] Magnesiumon 07-31-2024 Magnesium [Mass/Vol] 1.9 mg/dL Normal 1.9-2.7 [facility] Comment on above: Result Comment: PERF ORMED BY: [place] [address] PATHOLOGIST [employer] INST[employer]ER RHONDA MCLEAN M.D. Performed By: #### C BC, MG, CMP ####[address] US venous duplex LE BIon US venous duplex LE BI [facility] [place] [address] [place] [address] Ultrasound Report Signed Patient: Taurus Garcia MR#: [id number] : 1945 Acct:[id number] Age/Sex: 78 / M ADM Date: 07/28/24 Loc: Room: [address] [place] [address] Type: ADM IN Attending Dr: Kaz Prescott MD Ordering Provider: Kaz Prescott MD Date of Service: 07/30/24 US/US venous duplex LE BI: ro dvt Copies to: Kaz Prescott MD BILATERAL LOWER EXTREMITY VENOUS DUPLEX INDICATION: Left leg pain. Venous duplex history: Bilateral lower extremity venous duplex evaluation was negative for DVT in May 2023. PROCEDURE: Color-flow duplex scanning is used to interrogate the deep venous system of the right and left lower extremities. The common femoral vein, femoral vein and popliteal vein show good compressibility with normal proximal and distal augmentation. The calf veins are compressible. US/US venous duplex LE BI IMPRESSION: NO EVIDENCE FOR DEEP VEIN THROMBOSIS OR PROXIMAL SUPERFICIAL THROMBOPHLEBITIS IN THE RIGHT OR LEFT LOWER EXTREMITY. An anechoic area was identified in the right popliteal fossa measuring 3.7 x 3.0 x 1.3 cm. This may represent a Plasencia's cyst. Impression dictated by: Dg Hernandez MD07/31/2024 9:46 AM Dictation Location: [place] [address] Tech: Kathy Gibson Transcribed By: [facility] 07/31/24945 Dictated By: Dg Hernandez MD 07/31/2445 Signed By: 07/31/24945 Normal [facility] Complete Blood Count Auto Di ffon 07-30-2024 Basophils (Bld) [#/Vol] 0.1 10*3/uL Normal 0.0-0.2 [facility] Comment on above: Result Comment: PERF ORMED BY: [place] [address] PATHOLOGIST [employer] INST[employer]ER RHONDA MCLEAN M.D. Performed By: #### E SR, TSH3, CK, HS TROP, CMP #### [address] Basophils/100 WBC (Bld) 0.6 % Normal . [facility] Comment on above: Performed By: #### E SR, TSH3, CK, HS TROP, CMP #### [address] Eosinophils (Bld) [#/Vol] 0.1 10*3/uL Normal 0.0-0.45 [facility] Comment on above: Performed By: #### E SR, TSH3, CK, HS TROP, CMP #### [address] Eosinophils/100 WBC (Bld) 1.6 % Normal . [facility] Comment on above: Performed By: #### E SR, TSH3, CK, HS TROP, CMP #### [address] Erythrocyte distribution width (RBC) [Ratio] 15.4 % High 12.0-14.8 [facility] Comment on above: Performed By: #### E SR, TSH3, CK, HS TROP, CMP #### [address] Hematocrit (Bld) [Volume fraction] 38.6 % Low 38.8-50.0 [facility] Comment on above: Performed By: #### E SR, TSH3, CK, HS TROP, CMP #### [address] Hemoglobin (Bld) [Mass/Vol] 13.0 g/dL Normal 13.0-17.0 [facility] Comment on above: Performed By: #### E SR, TSH3, CK, HS TROP, CMP #### [address] Lymphocytes (Bld) [#/Vol] 2.3 10*3/uL Normal 1.00-4.8 [facility] Comment on above: Performed By: #### E SR, TSH3, CK, HS TROP, CMP #### [address] Lymphocytes/100 WBC (Bld) 25.0 % Normal . [facility] Comment on above: Performed By: #### E SR, TSH3, CK, HS TROP, CMP #### [address] MCH (RBC) [Entitic mass] 30.5 pg Normal 27.5-35.2 [facility] Comment on above: Performed By: #### E SR, TSH3, CK, HS TROP, CMP #### [address] MCV (RBC) [Entitic vol] 90.6 fL Normal 83.5-101 [facility] Comment on above: Performed By: #### E SR, TSH3, CK, HS TROP, CMP #### [address] Mean Corpuscular HGB Conc 33.7 g/dL Normal 32.5-35.6 [facility] Comment on above: Performed By: #### E SR, TSH3, CK, HS TROP, CMP #### [address] Monocytes (Bld) [#/Vol] 0.9 10*3/uL High 0.0-0.8 [facility] Comment on above: Performed By: #### E SR, TSH3, CK, HS TROP, CMP #### [place] [address] [place] Monocytes/100 WBC (Bld) 9.5 % Normal . [facility] Comment on above: Performed By: #### E SR, TSH3, CK, HS TROP, CMP #### [place] [address] [place] Neutrophils (Bld) [#/Vol] 5.8 10*3/uL Normal 1.8-7.7 [facility] Comment on above: Performed By: #### E SR, TSH3, CK, HS TROP, CMP #### [place] [address] [place] Neutrophils/100 WBC (Bld) 63.3 % Normal . [facility] Comment on above: Performed By: #### E SR, TSH3, CK, HS TROP, CMP #### [address] NRBC% 0.1 /100{WBC} Normal 0-0.5 [facility] Comment on above: Performed By: #### E SR, TSH3, CK, HS TROP, CMP #### [place] [address] [place] Platelet mean volume (Bld) [Entitic vol] 8.1 fL Normal 6.6-10.1 [facility] Comment on above: Performed By: #### E SR, TSH3, CK, HS TROP, CMP #### [place] [address] [place] Platelets (Bld) [#/Vol] 220 10*3/uL Normal 150-450 [facility] Comment on above: Performed By: #### E SR, TSH3, CK, HS TROP, CMP #### [address] RBC (Bld) [#/Vol] 4.26 10*6/uL Normal 3.90-5.60 [facility] Comment on above: Performed By: #### E SR, TSH3, CK, HS TROP, CMP #### [address] WBC (Bld) [#/Vol] 9.2 10*3/uL Normal 4.1-10.5 [facility] Comment on above: Performed By: #### E SR, TSH3, CK, HS TROP, CMP #### [address] Comprehensive Metabolic Pane radha 07-30-2024 Albumin [Mass/Vol] 3.2 g/dL Low 3.5-5.7 [facility] Comment on above: Performed By: #### E SR, TSH3, CK, HS TROP, CMP #### [address] Albumin/Globulin [Mass ratio] 1.3 {ratio} Normal [facility] Comment on above: Performed By: #### E SR, TSH3, CK, HS TROP, CMP #### [address] ALP [Catalytic activity/Vol] 50 U/L Normal 34-104 [facility] Comment on above: Performed By: #### E SR, TSH3, CK, HS TROP, CMP #### [address] ALT [Catalytic activity/Vol] 19 U/L Normal 7-52 [facility] Comment on above: Performed By: #### E SR, TSH3, CK, HS TROP, CMP #### [address] Anion gap [Moles/Vol] 9.8 mmol/L Normal 6.0-15.0 [facility] Comment on above: Performed By: #### E SR, TSH3, CK, HS TROP, CMP #### [address] AST [Catalytic activity/Vol] 18 U/L Normal 13-39 [facility] Comment on above: Performed By: #### E SR, TSH3, CK, HS TROP, CMP #### [address] Bilirubin [Mass/Vol] 0.8 mg/dL Normal 0.3-1.0 [facility] Comment on above: Performed By: #### E SR, TSH3, CK, HS TROP, CMP #### [address] Calcium [Mass/Vol] 9.1 mg/dL Normal 8.6-10.3 [facility] Comment on above: Performed By: #### E SR, TSH3, CK, HS TROP, CMP #### [address] Chloride [Moles/Vol] 103 mmol/L Normal 98-107 [facility] Comment on above: Performed By: #### E SR, TSH3, CK, HS TROP, CMP #### [address] CO2 [Moles/Vol] 33.6 mmol/L High 21.0-31.0 [facility] Comment on above: Performed By: #### E SR, TSH3, CK, HS TROP, CMP #### [address] Creatinine [Mass/Vol] 1.00 mg/dL Normal 0.70-1.30 [facility] Comment on above: Performed By: #### E SR, TSH3, CK, HS TROP, CMP #### [address] Creatinine Clr Calc Pharmacy 80.23 Normal [facility] Comment on above: Result Comment: PERF ORMED BY: [place] [address] PATHOLOGIST [employer] INST[employer]ER RHONDA MCLEAN M.D. Performed By: #### E SR, TSH3, CK, HS TROP, CMP #### [address] GFR/1.73 sq M.predicted MDRD (S/P/Bld) [Vol rate/Area] mL/min/{1.73_m2} Normal [facility] Comment on above: Performed By: #### E SR, TSH3, CK, HS TROP, CMP #### [address] Globulin (S) [Mass/Vol] 2.5 g/dL Normal [facility] Comment on above: Performed By: #### E SR, TSH3, CK, HS TROP, CMP #### [address] Glucose [Mass/Vol] 99 mg/dL Normal 70-100 [facility] Comment on above: Result Comment: [place] Glucose Reference Range is dependent on time and content of last meal. Glucose of more than 200 mg/dL in a nonstressed, ambulatory subject supports the diagnosis of Diabetes Mellitus. ADA recommended reference range Performed By: #### E SR, TSH3, CK, HS TROP, CMP #### [address] Potassium [Moles/Vol] 3.4 mmol/L Low 3.5-5.1 [facility] Comment on above: Performed By: #### E SR, TSH3, CK, HS TROP, CMP #### [address] Protein [Mass/Vol] 5.7 g/dL Low 6.4-8.9 [facility] Comment on above: Performed By: #### E SR, TSH3, CK, HS TROP, CMP #### [address] Sodium [Moles/Vol] 143 mmol/L Normal 136-145 [facility] Comment on above: Performed By: #### E SR, TSH3, CK, HS TROP, CMP #### [address] [place] [address] [facility] Urea nitrogen [Mass/Vol] 20 mg/dL Normal 7-25 [facility] Comment on above: Performed By: #### E SR, TSH3, CK, HS TROP, CMP #### [facility] [address] [place] [id number] [facility] CT lumbar spine wo conon CT lumbar spine wo con [facility] [place] [address] [place] [address] CT Scan Report Signed Patient: Taurus Garcia MR#: [id number] : 1945 Acct:[id number] Age/Sex: 78 / M ADM Date: 07/28/24 Loc: Room: [address] [place] [address] Type: ADM IN Attending Dr: Kaz Prescott MD Copies to: Kaz Prescott MD Ordering Provider: Kaz Prescott MD Date of Service: 07/29/24 CT/CT lumbar spine wo con: Back pain with radiculopathy CT lumbar spine wo con 07/29/2024 10:45 AM History:Chronic back pain fall syncope TECHNIQUE: Multi detector CT axial slices of the lumbar spine were obtained without IV contrast. Volumetric acquisition sagittal, coronal, and 3-D reconstructions were performed and reviewed on a separate workstation. CT was performed with one or more of the following dose reduction techniques: Automated exposure control, adjustment of the mA and/or kV according to patient size, or use of iterative reconstruction technique. COMPARISON: None FINDINGS: Vertebral body heights appear maintained. Moderate diffuse degenerative disease with endplate and facet joint degenerative changes. There is associated scoliosis. Transverse processes appear intact. SI joints demonstrate degenerative change. No paraspinal mass. Visualized retroperitoneum demonstrates partially visualized cystic changes involving the kidneys. CT/CT lumbar spine wo con IMPRESSION: Diffuse moderate degenerative disease involving the lumbar spine with scoliosis. No acute bony process. Impression dictated by: Silvestre Diallo Jr., D.O.07/29/2024 6:02 PM Dictation Location: [place] [address] Transcribed By: [facility] 07/29/241801 Dictated By: Silvestre Diallo Jr, DO 12/09/24 1801 Signed By: 07/29/24 1802 Normal [facility] Complete Blood Count Auto Di ffon 07-29-2024 Basophils (Bld) [#/Vol] 0.0 10*3/uL Normal 0.0-0.2 [facility] Comment on above: Result Comment: PERF ORMED BY: [place] [address] PATHOLOGIST [employer] INST[employer]ER RHONDA MCLEAN M.D. Performed By: #### E SR, TSH3, CK, HS TROP, CMP #### [address] Basophils/100 WBC (Bld) 0.4 % Normal . [facility] Comment on above: Performed By: #### E SR, TSH3, CK, HS TROP, CMP #### [address] Eosinophils (Bld) [#/Vol] 0.1 10*3/uL Normal 0.0-0.45 [facility] Comment on above: Performed By: #### E SR, TSH3, CK, HS TROP, CMP #### [address] Eosinophils/100 WBC (Bld) 0.9 % Normal . [facility] Comment on above: Performed By: #### E SR, TSH3, CK, HS TROP, CMP #### [address] Erythrocyte distribution width (RBC) [Ratio] 15.2 % High 12.0-14.8 [facility] Comment on above: Performed By: #### E SR, TSH3, CK, HS TROP, CMP #### [address] Hematocrit (Bld) [Volume fraction] 39.0 % Normal 38.8-50.0 [facility] Comment on above: Performed By: #### E SR, TSH3, CK, HS TROP, CMP #### [address] Hemoglobin (Bld) [Mass/Vol] 13.2 g/dL Normal 13.0-17.0 [facility] Comment on above: Performed By: #### E SR, TSH3, CK, HS TROP, CMP #### [address] Lymphocytes (Bld) [#/Vol] 1.9 10*3/uL Normal 1.00-4.8 [facility] Comment on above: Performed By: #### E SR, TSH3, CK, HS TROP, CMP #### [address] Lymphocytes/100 WBC (Bld) 23.4 % Normal . [facility] Comment on above: Performed By: #### E SR, TSH3, CK, HS TROP, CMP #### [address] MCH (RBC) [Entitic mass] 30.5 pg Normal 27.5-35.2 [facility] Comment on above: Performed By: #### E SR, TSH3, CK, HS TROP, CMP #### [address] MCV (RBC) [Entitic vol] 90.5 fL Normal 83.5-101 [facility] Comment on above: Performed By: #### E SR, TSH3, CK, HS TROP, CMP #### [address] Mean Corpuscular HGB Conc 33.7 g/dL Normal 32.5-35.6 [facility] Comment on above: Performed By: #### E SR, TSH3, CK, HS TROP, CMP #### [address] Monocytes (Bld) [#/Vol] 1.1 10*3/uL High 0.0-0.8 [facility] Comment on above: Performed By: #### E SR, TSH3, CK, HS TROP, CMP #### [address] Monocytes/100 WBC (Bld) 13.3 % Normal . [facility] Comment on above: Performed By: #### E SR, TSH3, CK, HS TROP, CMP #### [address] Neutrophils (Bld) [#/Vol] 5.2 10*3/uL Normal 1.8-7.7 [facility] Comment on above: Performed By: #### E SR, TSH3, CK, HS TROP, CMP #### [address] Neutrophils/100 WBC (Bld) 62.0 % Normal . [facility] Comment on above: Performed By: #### E SR, TSH3, CK, HS TROP, CMP #### [address] NRBC% 0.1 /100{WBC} Normal 0-0.5 [facility] Comment on above: Performed By: #### E SR, TSH3, CK, HS TROP, CMP #### [address] Platelet mean volume (Bld) [Entitic vol] 8.4 fL Normal 6.6-10.1 [facility] Comment on above: Performed By: #### E SR, TSH3, CK, HS TROP, CMP #### [address] Platelets (Bld) [#/Vol] 217 10*3/uL Normal 150-450 [facility] Comment on above: Performed By: #### E SR, TSH3, CK, HS TROP, CMP #### [place] [address] [place] RBC (Bld) [#/Vol] 4.31 10*6/uL Normal 3.90-5.60 [facility] Comment on above: Performed By: #### E SR, TSH3, CK, HS TROP, CMP #### [address] WBC (Bld) [#/Vol] 8.3 10*3/uL Normal 4.1-10.5 [facility] Comment on above: Performed By: #### E SR, TSH3, CK, HS TROP, CMP #### [address] Comprehensive Metabolic Pane radha 07-29-2024 Albumin [Mass/Vol] 3.2 g/dL Low 3.5-5.7 [facility] Comment on above: Performed By: #### E SR, TSH3, CK, HS TROP, CMP #### [address] Albumin/Globulin [Mass ratio] 1.2 {ratio} Normal [facility] Comment on above: Performed By: #### E SR, TSH3, CK, HS TROP, CMP #### [address] ALP [Catalytic activity/Vol] 49 U/L Normal 34-104 [facility] Comment on above: Performed By: #### E SR, TSH3, CK, HS TROP, CMP #### [address] ALT [Catalytic activity/Vol] 18 U/L Normal 7-52 [facility] Comment on above: Performed By: #### E SR, TSH3, CK, HS TROP, CMP #### [address] Anion gap [Moles/Vol] 11.3 mmol/L Normal 6.0-15.0 [facility] Comment on above: Performed By: #### E SR, TSH3, CK, HS TROP, CMP #### [address] AST [Catalytic activity/Vol] 19 U/L Normal 13-39 [facility] Comment on above: Performed By: #### E SR, TSH3, CK, HS TROP, CMP #### [address] Bilirubin [Mass/Vol] 0.8 mg/dL Normal 0.3-1.0 [facility] Comment on above: Performed By: #### E SR, TSH3, CK, HS TROP, CMP #### [address] Calcium [Mass/Vol] 9.1 mg/dL Normal 8.6-10.3 [facility] Comment on above: Performed By: #### E SR, TSH3, CK, HS TROP, CMP #### [address] Chloride [Moles/Vol] 102 mmol/L Normal 98-107 [facility] Comment on above: Performed By: #### E SR, TSH3, CK, HS TROP, CMP #### [address] CO2 [Moles/Vol] 34.0 mmol/L High 21.0-31.0 [facility] Comment on above: Performed By: #### E SR, TSH3, CK, HS TROP, CMP #### [address] Creatinine [Mass/Vol] 1.09 mg/dL Normal 0.70-1.30 [facility] Comment on above: Performed By: #### E SR, TSH3, CK, HS TROP, CMP #### [address] Creatinine Clr Calc Pharmacy 73.15 Normal [facility] Comment on above: Performed By: #### E SR, TSH3, CK, HS TROP, CMP #### [address] GFR/1.73 sq M.predicted MDRD (S/P/Bld) [Vol rate/Area] mL/min/{1.73_m2} Normal [facility] Comment on above: Performed By: #### E SR, TSH3, CK, HS TROP, CMP #### [address] Globulin (S) [Mass/Vol] 2.6 g/dL Normal [facility] Comment on above: Performed By: #### E SR, TSH3, CK, HS TROP, CMP #### [place] [address] [place] Glucose [Mass/Vol] 98 mg/dL Normal 70-100 [facility] Comment on above: Result Comment: [facility] Glucose Reference Range is dependent on time and content of last meal. Glucose of more than 200 mg/dL in a nonstressed, ambulatory subject supports the diagnosis of Diabetes Mellitus. ADA recommended reference range Performed By: #### E SR, TSH3, CK, HS TROP, CMP #### [address] Potassium [Moles/Vol] 3.3 mmol/L Low 3.5-5.1 [facility] Comment on above: Performed By: #### E SR, TSH3, CK, HS TROP, CMP #### [address] Protein [Mass/Vol] 5.8 g/dL Low 6.4-8.9 [facility] Comment on above: Performed By: #### E SR, TSH3, CK, HS TROP, CMP #### [address] Sodium [Moles/Vol] 144 mmol/L Normal 136-145 [facility] Comment on above: Performed By: #### E SR, TSH3, CK, HS TROP, CMP #### [address] Urea nitrogen [Mass/Vol] 23 mg/dL Normal 7-25 [facility] Comment on above: Performed By: #### E SR, TSH3, CK, HS TROP, CMP #### [address] Magnesiumon 07-29-2024 Magnesium [Mass/Vol] 1.8 mg/dL Low 1.9-2.7 [facility] Comment on above: Result Comment: PERF ORMED BY: [place] [address] PATHOLOGIST [employer]ER RHONDA MCLEAN M.D. Performed By: #### E SR, TSH3, CK, HS TROP, CMP #### [address] Phosphoruson 07-29-2024 Phosphate [Mass/Vol] 3.4 mg/dL Normal 2.5-4.5 [facility] Comment on above: Performed By: #### E SR, TSH3, CK, HS TROP, CMP #### [address] B-Type Natriuretic Peptideon 07-28-2024 Natriuretic peptide B (Bld) [Mass/Vol] 142.0 pg/mL High 5-100 [facility] Comment on above: Result Comment: PERF ORMED BY: [place] [address] PATHOLOGIST [employer] INST[employer]ER RHONDA MCLEAN M.D. Performed By: #### E SR, TSH3, CK, HS TROP, CMP #### [address] cervical spine wo conon 1 09-28-2023 CT cervical spine wo [facility] [place] [address] [place] [address] CT Scan Report Signed Patient: Taurus Garcia MR#: [id number] : 1945 Acct:[id number] Age/Sex: 78 / M ADM Date: 07/28/24 Loc: ER Room: Type: [facility] ER Attending Dr: Copies to: Juli Thomas APRN Ordering Provider: Juli Thomas APRN Date of Service: 07/28/24 CT/CT cervical spine wo con: syncope ([id number]) CT/CT facial bones wo con: injury ([id number]) CT/CT head/brain wo con: syncope CT BRAIN/FACIAL BONES WITHOUT CONTRAST: CLINICAL HISTORY: Syncope, right-sided vision loss. History of bladder cancer. COMPARISON: CT brain 07/09/2024 TECHNIQUE: Contiguous axial unenhanced images were obtained through the brain and facial bones. This CT exam was performed using one or more following dose reduction techniques: Automated exposure control, adjustment of the mA and/or kV according to patient size, or use of iterative reconstruction technique. FINDINGS: Brain: There is no evidence of midline shift, intra or extra-axial fluid collection, hemorrhage or CT evidence of stroke. Cortical atrophy with chronic microvascular ischemic changes. Findings are similar to the prior study. Posterior fossa appears unremarkable. The surrounding soft tissues are normal. Facial Bones No nasal bone fracture. Zygomatic arches and pterygoid plates appear intact. Maxilla and mandible appear intact. Mild right maxillary sinus disease. Mild ethmoid sinus disease. Nasal septum is relatively midline. Mastoid air cells are well pneumatized. No orbital fracture. Intraorbital contents demonstrates no acute findings. Postsurgical changes involving the right globe. No significant soft tissue swelling. CT/CT head/brain wo con IMPRESSION: NO ACUTE INTRACRANIAL ABNORMALITY. CT CERVICAL SPINE WITHOUT CONTRAST WITH 3D RECONSTRUCTIONS: COMPARISON: None TECHNIQUE: Spiral axial unenhanced images were obtained through the cervical spine. Sagittal, coronal and 3D volume-rendered reconstructions were also reviewed. This CT exam was performed using one or more following dose reduction techniques: Automated exposure control, adjustment of the mA and/or kV according to patient size, or use of iterative reconstruction technique. FINDINGS: No fracture. Posterior hardware C3-C6. Moderate spondylosis C3-T1. No prevertebral soft tissue swelling. Visualized lung apices demonstrate no acute process. IMPRESSION: NO CERVICAL SPINE FRACTURE Impression dictated by: Silvestre Diallo Jr., D.O.07/28/2024 2:01 PM Dictation Location: [facility]18 Transcribed By: [facility] 07/28/24 1401 Dictated By: Silvestre Diallo Jr, DO 07/28/24 1357 Signed By: 07/28/24 1401 Normal [facility] Complete Blood Count Auto Di ffon 07-28-2024 Basophils (Bld) [#/Vol] 0.1 10*3/uL Normal 0.0-0.2 [facility] Comment on above: Result Comment: PERF ORMED BY: [place] [address] PATHOLOGIST [employer] INST[employer]ER RHONDA MCLEAN M.D. Performed By: #### E SR, TSH3, CK, HS TROP, CMP #### [address] Basophils/100 WBC (Bld) 0.9 % Normal . [facility] Comment on above: Performed By: #### E SR, TSH3, CK, HS TROP, CMP #### [address] Eosinophils (Bld) [#/Vol] 0.0 10*3/uL Normal 0.0-0.45 [facility] Comment on above: Performed By: #### E SR, TSH3, CK, HS TROP, CMP #### [address] Eosinophils/100 WBC (Bld) 0.2 % Normal . [facility] Comment on above: Performed By: #### E SR, TSH3, CK, HS TROP, CMP #### [address] Erythrocyte distribution width (RBC) [Ratio] 15.1 % High 12.0-14.8 [facility] Comment on above: Performed By: #### E SR, TSH3, CK, HS TROP, CMP #### [address] Hematocrit (Bld) [Volume fraction] 38.9 % Normal 38.8-50.0 [facility] Comment on above: Performed By: #### E SR, TSH3, CK, HS TROP, CMP #### [address] Hemoglobin (Bld) [Mass/Vol] 13.1 g/dL Normal 13.0-17.0 [facility] Comment on above: Performed By: #### E SR, TSH3, CK, HS TROP, CMP #### [address] Lymphocytes (Bld) [#/Vol] 0.7 10*3/uL Low 1.00-4.8 [facility] Comment on above: Performed By: #### E SR, TSH3, CK, HS TROP, CMP #### [address] Lymphocytes/100 WBC (Bld) 5.7 % Normal . [facility] Comment on above: Performed By: #### E SR, TSH3, CK, HS TROP, CMP #### [address] MCH (RBC) [Entitic mass] 30.4 pg Normal 27.5-35.2 [facility] Comment on above: Performed By: #### E SR, TSH3, CK, HS TROP, CMP #### [address] MCV (RBC) [Entitic vol] 90.3 fL Normal 83.5-101 [facility] Comment on above: Performed By: #### E SR, TSH3, CK, HS TROP, CMP #### [address] Mean Corpuscular HGB Conc 33.7 g/dL Normal 32.5-35.6 [facility] Comment on above: Performed By: #### E SR, TSH3, CK, HS TROP, CMP #### [place] [address] [place] Monocytes (Bld) [#/Vol] 1.1 10*3/uL High 0.0-0.8 [facility] Comment on above: Performed By: #### E SR, TSH3, CK, HS TROP, CMP #### [address] Monocytes/100 WBC (Bld) 20.19 % High 0.00-20.00 [facility] Comment on above: Result Comment: For adults in ED, MDW > 20.0 may be associated with a higher risk of sepsis during the first 12 hrs of hospital admission Performed By: #### E SR, TSH3, CK, HS TROP, CMP #### [address] Monocytes/100 WBC (Bld) 8.7 % Normal . [facility] Comment on above: Performed By: #### E SR, TSH3, CK, HS TROP, CMP #### [address] Neutrophils (Bld) [#/Vol] 10.6 10*3/uL High 1.8-7.7 [facility] Comment on above: Performed By: #### E SR, TSH3, CK, HS TROP, CMP #### [address] Neutrophils/100 WBC (Bld) 84.5 % Normal . [facility] Comment on above: Performed By: #### E SR, TSH3, CK, HS TROP, CMP #### [address] NRBC% 0.2 /100{WBC} Normal 0-0.5 [facility] Comment on above: Performed By: #### E SR, TSH3, CK, HS TROP, CMP #### [address] Platelet mean volume (Bld) [Entitic vol] 8.6 fL Normal 6.6-10.1 [facility] Comment on above: Performed By: #### E SR, TSH3, CK, HS TROP, CMP #### [address] Platelets (Bld) [#/Vol] 234 10*3/uL Normal 150-450 [facility] Comment on above: Performed By: #### E SR, TSH3, CK, HS TROP, CMP #### [address] RBC (Bld) [#/Vol] 4.31 10*6/uL Normal 3.90-5.60 [facility] Comment on above: Performed By: #### E SR, TSH3, CK, HS TROP, CMP #### [address] WBC (Bld) [#/Vol] 12.5 10*3/uL High 4.1-10.5 [facility] Comment on above: Performed By: #### E SR, TSH3, CK, HS TROP, CMP #### [address] Comprehensive Metabolic Pane radha 07-28-2024 Albumin [Mass/Vol] 3.4 g/dL Low 3.5-5.7 [facility] Comment on above: Performed By: #### E SR, TSH3, CK, HS TROP, CMP #### [address] Albumin/Globulin [Mass ratio] 1.2 {ratio} Normal [facility] Comment on above: Performed By: #### E SR, TSH3, CK, HS TROP, CMP #### [address] ALP [Catalytic activity/Vol] 57 U/L Normal 34-104 [facility] Comment on above: Performed By: #### E SR, TSH3, CK, HS TROP, CMP #### [address] ALT [Catalytic activity/Vol] 22 U/L Normal 7-52 [facility] Comment on above: Performed By: #### E SR, TSH3, CK, HS TROP, CMP #### [address] Anion gap [Moles/Vol] 13.5 mmol/L Normal 6.0-15.0 [facility] Comment on above: Performed By: #### E SR, TSH3, CK, HS TROP, CMP #### [address] AST [Catalytic activity/Vol] 20 U/L Normal 13-39 [facility] Comment on above: Performed By: #### E SR, TSH3, CK, HS TROP, CMP #### [address] Bilirubin [Mass/Vol] 0.7 mg/dL Normal 0.3-1.0 [facility] Comment on above: Performed By: #### E SR, TSH3, CK, HS TROP, CMP #### [address] Calcium [Mass/Vol] 9.1 mg/dL Normal 8.6-10.3 [facility] Comment on above: Performed By: #### E SR, TSH3, CK, HS TROP, CMP #### [place] [address] Chloride [Moles/Vol] 100 mmol/L Normal 98-107 [facility] Comment on above: Performed By: #### E SR, TSH3, CK, HS TROP, CMP #### [facility] [address] CO2 [Moles/Vol] 29.9 mmol/L Normal 21.0-31.0 [facility] Comment on above: Performed By: #### E SR, TSH3, CK, HS TROP, CMP #### [address] Creatinine [Mass/Vol] 1.20 mg/dL Normal 0.70-1.30 [facility] Comment on above: Performed By: #### E SR, TSH3, CK, HS TROP, CMP #### [place] [address] [place] Creatinine Clr Calc Pharmacy 67.69 Normal [facility] Comment on above: Performed By: #### E SR, TSH3, CK, HS TROP, CMP #### [place] [address] [place] GFR/1.73 sq M.predicted MDRD (S/P/Bld) [Vol rate/Area] mL/min/{1.73_m2} Normal [facility] Comment on above: Performed By: #### E SR, TSH3, CK, HS TROP, CMP #### [place] [address] [place] Globulin (S) [Mass/Vol] 2.8 g/dL Normal [facility] Comment on above: Performed By: #### E SR, TSH3, CK, HS TROP, CMP #### [place] [address] [place] Glucose [Mass/Vol] 151 mg/dL High 70-100 [facility] Comment on above: Result Comment: [place] Glucose Reference Range is dependent on time and content of last meal. Glucose of more than 200 mg/dL in a nonstressed, ambulatory subject supports the diagnosis of Diabetes Mellitus. ADA recommended reference range Performed By: #### E SR, TSH3, CK, HS TROP, CMP #### [address] Potassium [Moles/Vol] 3.4 mmol/L Low 3.5-5.1 [facility] Comment on above: Performed By: #### E SR, TSH3, CK, HS TROP, CMP #### [address] Protein [Mass/Vol] 6.2 g/dL Low 6.4-8.9 [facility] Comment on above: Performed By: #### E SR, TSH3, CK, HS TROP, CMP #### [address] Sodium [Moles/Vol] 140 mmol/L Normal 136-145 [facility] Comment on above: Performed By: #### E SR, TSH3, CK, HS TROP, CMP #### [address] Urea nitrogen [Mass/Vol] 28 mg/dL High 7-25 [facility] Comment on above: Performed By: #### E SR, TSH3, CK, HS TROP, CMP #### [address] Dipstick and Microscopicon 1 09-28-2023 Appearance (U) Clear Normal Clear [facility] Comment on above: Order Comment: Name Collection Type:: Clean-Voided Midstream Performed By: #### E SR, TSH3, CK, HS TROP, CMP #### [address] Bacteria,Urine None Seen Normal None Seen [facility] Comment on above: Order Comment: Name Collection Type:: Clean-Voided Midstream Performed By: #### E SR, TSH3, CK, HS TROP, CMP #### [address] Bilirubin,Urine Negative Normal Negative [facility] Comment on above: Order Comment: Name Collection Type:: Clean-Voided Midstream Performed By: #### E SR, TSH3, CK, HS TROP, CMP #### [address] Color (U) Colorless Normal Yellow [facility] Comment on above: Order Comment: Name Collection Type:: Clean-Voided Midstream Performed By: #### E SR, TSH3, CK, HS TROP, CMP #### [address] Glucose Ql (U) Normal Normal Normal [facility] Comment on above: Order Comment: Name Collection Type:: Clean-Voided Midstream Performed By: #### E SR, TSH3, CK, HS TROP, CMP #### [address] Hyaline Casts,Urine None Normal 0-8 [facility] Comment on above: Order Comment: Name Collection Type:: Clean-Voided Midstream Result Comment: PERF ORMED BY: [place] [address] PATHOLOGIST [employer] IN[employer]ER RHONDA MCLEAN M.D. Performed By: #### E SR, TSH3, CK, HS TROP, CMP #### [address] Ketones Ql (U) Negative Normal Negative [facility] Comment on above: Order Comment: Name Collection Type:: Clean-Voided Midstream Performed By: #### E SR, TSH3, CK, HS TROP, CMP #### [address] Leukocyte esterase Test strip Ql (U) Negative Normal Negative [facility] Comment on above: Order Comment: Name Collection Type:: Clean-Voided Midstream Performed By: #### E SR, TSH3, CK, HS TROP, CMP #### [place] [address] [place] Nitrite,Urine Negative Normal Negative [facility] Comment on above: Order Comment: Name Collection Type:: Clean-Voided Midstream Performed By: #### E SR, TSH3, CK, HS TROP, CMP #### [address] Occult Blood,Urine Trace High Negative [facility] Comment on above: Order Comment: Name Collection Type:: Clean-Voided Midstream Result Comment: PERF ORMED BY: [place] [address] PATHOLOGIST [employer] INST[employer]ER RHONDA MCLEAN M.D. Performed By: #### E SR, TSH3, CK, HS TROP, CMP #### [address] pH (U) 6.5 [pH] Normal 5.0-9.0 [facility] Comment on above: Order Comment: Name Collection Type:: Clean-Voided Midstream Performed By: #### E SR, TSH3, CK, HS TROP, CMP #### [address] Protein,Urine Negative Normal Negative [facility] Comment on above: Order Comment: Name Collection Type:: Clean-Voided Midstream Performed By: #### E SR, TSH3, CK, HS TROP, CMP #### [address] RBC,Urine 1 [HPF] Normal 0-4 [facility] Comment on above: Order Comment: Name Collection Type:: Clean-Voided Midstream Performed By: #### E SR, TSH3, CK, HS TROP, CMP #### [address] Specificy [place],Urine 1.006 Normal 1.001-1.03 0 [facility] Comment on above: Order Comment: Name Collection Type:: Clean-Voided Midstream Performed By: #### E SR, TSH3, CK, HS TROP, CMP #### [address] Urobilinogen,Urine Normal Normal Normal [facility] Comment on above: Order Comment: Name Collection Type:: Clean-Voided Midstream Performed By: #### E SR, TSH3, CK, HS TROP, CMP #### [address] WBC,Urine 1 [HPF] Normal 0-4 [facility] Comment on above: Order Comment: Name Collection Type:: Clean-Voided Midstream Performed By: #### E SR, TSH3, CK, HS TROP, CMP #### [address] [address] [facility] ECG 12 lead ECGon 07-28-2024 ECG 12 lead ECG [facility] [place] [address] [place] [address] Electrocardiograph Report Signed Patient: Taurus Garcia MR#: [id number] : 1945 Acct:[id number] Age/Sex: 78 / M ADM Date: 07/28/24 Loc: Room: [address] [place] [address] Type: ADM IN Attending Dr: Kamaljit Melo MD Ordering Provider: Juli Thomas APRN Date of Service: 07/28/2404/13/1313 ECG/ECG 12 lead ECG: SYNCOPE Copies to: Test Reason : Blood Pressure : 134/62 mmHG Vent. Rate : 62 BPM Atrial Rate : 62 BPM P-R Int : 152 ms QRS Dur : 106 ms QT Int : 434 ms P-R-T Axes : 66 21 41 degrees QTcB Int : 440 ms Normal sinus rhythm Low voltage QRS Borderline ECG When compared with ECG of 09-Jul-2024 15:43, No significant change was found Confirmed by BALDO ROTHMAN DO ([id number]) on 07/28/2024 7:02:31 PM Referred By: Electronically Signed By: BALDO ROTHMAN DO Transcribed By: MUS Signed By Baldo Rothman DO [id number] Normal [facility] Glucose Poct Glucometerson 1 09-28-2023 Glucose [Mass/Vol] 172 mg/dL Normal [facility] Comment on above: Result Comment: [place] Glucose Reference Range is dependent on time and content of last meal. Glucose of more than 200 mg/dL in a nonstressed, ambulatory subject supports the diagnosis of Diabetes Mellitus. PERFORMED BY: [place] [address] PATHOLOGIST W[employer] INSTALLER RHONDA MCLEAN M.D. Performed By: #### G LULS ####Point of Care testing, Magnesiumon 07-28-2024 Magnesium [Mass/Vol] 1.5 mg/dL Low 1.9-2.7 [facility] Comment on above: Result Comment: PERF ORMED BY: [place] [address] PATHOLOGIST [employer] INST[employer]ER RHONDA MCLEAN M.D. Performed By: #### E SR, TSH3, CK, HS TROP, CMP #### [place] [id number] [facility] Partial Thromboplastin Timeo n 07-28-2024 aPTT Coag (Bld) [Time] 26.3 s Normal 25.1-36.5 [facility] Comment on above: Result Comment: A he matocrit value greater than 55% may lead to inaccurate results in coagulation testing. Patients having hematocrit values >55% require a special collection tube for coagulation studies. Please contact the laboratory at [phone] for redraw instructions. PERFORMED BY: [place] [address] PATHOLOGIST W[employer] INST[employer]ER RHONDA MCLEAN M.D. Performed By: #### E SR, TSH3, CK, HS TROP, CMP #### [place] [id number] [facility] Phosphoruson 07-28-2024 Phosphate [Mass/Vol] 2.8 mg/dL Normal 2.5-4.5 [facility] Comment on above: Performed By: #### E SR, TSH3, CK, HS TROP, CMP #### [place] [id number] [facility] Prothrombin Time INRon 07-28 INR Coag (PPP) [Relative time] 1.4 {INR} Normal [facility] Comment on above: Result Comment: INR Therapeutic [...] with mechanical heart valves: 3 - 4.5 Performed By: #### E SR, TSH3, CK, HS TROP, CMP #### [address] PT Coag (PPP) [Time] 16.0 s High 9.0-12.9 [facility] Comment on above: Result Comment: A he matocrit value greater than 55% may lead to inaccurate results in coagulation testing. Patients having hematocrit values >55% require a special collection tube for coagulation studies. Please contact the laboratory at [phone] for redraw instructions. Performed By: #### E SR, TSH3, CK, HS TROP, CMP #### [address] Troponin I High Sensitivityo n 07-28-2024 Troponin I High Sensitivity 11.2 pg/mL Normal 0.0-20.0 [facility] Comment on above: Result Comment: PERF ORMED BY: [place] [address] PATHOLOGIST [employer] INSTALLER RHONDA MCLEAN M.D. Performed By: #### E SR, TSH3, CK, HS TROP, CMP #### [address] Troponin I High Sensitivity 11.1 pg/mL Normal 0.0-20.0 [facility] Comment on above: Result Comment: PERF ORMED BY: [place] [address] PATHOLOGIST [employer] INSTALLER RHONDA MCLEAN M.D. Performed By: #### E SR, TSH3, CK, HS TROP, CMP #### [address] XR chest 1V portableon 07-28 XR chest 1V portable [facility] [place] [address] XRay Report Signed Patient: Taurus Garcia MR#: [id number] : 1945 Acct:[id number] Age/Sex: 78 / M ADM Date: 07/28/24 Loc: ER Room: Type: [facility] ER Attending Dr: Copies to: Juli Thomas APRN Ordering Provider: Juli Thomas APRN Date of Service: 07/28/24 XR/XR chest 1V portable: Syncope SINGLE VIEW CHEST CLINICAL HISTORY: Syncopal episode. COMPARISON: Chest 07/09/2024 FINDINGS: Heart normal in size. Lungs are clear. No free air. XR/XR chest 1V portable IMPRESSION: NO ACUTE FINDINGS Impression dictated by: Silvestre Diallo Jr., Barrie07/28/2024 2:04 PM Dictation Location: [facility]PC-18 Transcribed By: [facility] 07/28/24 140 Dictated By: Silvestre Diallo Jr, DO 07/28/24 1401 Signed By: 07/28/24 1404 Normal [facility] Basic Metabolic Panelon 11-2 Anion gap [Moles/Vol] 9.9 mmol/L Normal 6.0-15.0 [facility] Comment on above: Performed By: #### E SR, TSH3, CK, HS TROP, CMP #### [facility] [address] [place] [address] [place] Calcium [Mass/Vol] 8.8 mg/dL Normal 8.6-10.3 [facility] Comment on above: Performed By: #### E SR, TSH3, CK, HS TROP, CMP #### [facility] [address] [place] [id number] [place] Chloride [Moles/Vol] 109 mmol/L High 98-107 [facility] Comment on above: Performed By: #### E SR, TSH3, CK, HS TROP, CMP #### [facility] [address] [place] [id number] [place] CO2 [Moles/Vol] 27.4 mmol/L Normal 21.0-31.0 [facility] Comment on above: Performed By: #### E SR, TSH3, CK, HS TROP, CMP #### [facility] [address] [place] [id number] [place] Creatinine [Mass/Vol] 1.08 mg/dL Normal 0.70-1.30 [facility] Comment on above: Performed By: #### E SR, TSH3, CK, HS TROP, CMP #### [address] Creatinine Clr Calc Pharmacy 75.22 Normal [facility] Comment on above: Performed By: #### E SR, TSH3, CK, HS TROP, CMP #### [place] [address] [place] GFR/1.73 sq M.predicted MDRD (S/P/Bld) [Vol rate/Area] mL/min/{1.73_m2} Normal [facility] Comment on above: Performed By: #### E SR, TSH3, CK, HS TROP, CMP #### [address] Glucose [Mass/Vol] 93 mg/dL Normal 70-100 [facility] Comment on above: Result Comment: [facility] Glucose Reference Range is dependent on time and content of last meal. Glucose of more than 200 mg/dL in a nonstressed, ambulatory subject supports the diagnosis of Diabetes Mellitus. ADA recommended reference range Performed By: #### E SR, TSH3, CK, HS TROP, CMP #### [address] Potassium [Moles/Vol] 3.3 mmol/L Low 3.5-5.1 [facility] Comment on above: Performed By: #### E SR, TSH3, CK, HS TROP, CMP #### [address] Sodium [Moles/Vol] 143 mmol/L Significant change down 136-145 [facility] Comment on above: Performed By: #### E SR, TSH3, CK, HS TROP, CMP #### [address] Urea nitrogen [Mass/Vol] 21 mg/dL Normal 7-25 [facility] Comment on above: Performed By: #### E SR, TSH3, CK, HS TROP, CMP #### [address] Complete Blood Count Auto Di ffon 07-12-2024 Basophils (Bld) [#/Vol] 0.0 10*3/uL Normal 0.0-0.2 [facility] Comment on above: Result Comment: PERF ORMED BY: [place] [address] PATHOLOGIST [employer] INSTALLER RHONDA MCLEAN M.D. Performed By: #### E SR, TSH3, CK, HS TROP, CMP #### [address] Basophils/100 WBC (Bld) 0.5 % Normal . [facility] Comment on above: Performed By: #### E SR, TSH3, CK, HS TROP, CMP #### [address] Eosinophils (Bld) [#/Vol] 0.2 10*3/uL Normal 0.0-0.45 [facility] Comment on above: Performed By: #### E SR, TSH3, CK, HS TROP, CMP #### [address] Eosinophils/100 WBC (Bld) 2.1 % Normal . [facility] Comment on above: Performed By: #### E SR, TSH3, CK, HS TROP, CMP #### [address] Erythrocyte distribution width (RBC) [Ratio] 14.5 % Normal 12.0-14.8 [facility] Comment on above: Performed By: #### E SR, TSH3, CK, HS TROP, CMP #### [address] Hematocrit (Bld) [Volume fraction] 36.1 % Low 38.8-50.0 [facility] Comment on above: Performed By: #### E SR, TSH3, CK, HS TROP, CMP #### [place] [address] [place] Hemoglobin (Bld) [Mass/Vol] 12.2 g/dL Low 13.0-17.0 [facility] Comment on above: Performed By: #### E SR, TSH3, CK, HS TROP, CMP #### [address] Lymphocytes (Bld) [#/Vol] 1.5 10*3/uL Normal 1.00-4.8 [facility] Comment on above: Performed By: #### E SR, TSH3, CK, HS TROP, CMP #### [address] Lymphocytes/100 WBC (Bld) 18.6 % Normal . [facility] Comment on above: Performed By: #### E SR, TSH3, CK, HS TROP, CMP #### [address] MCH (RBC) [Entitic mass] 30.8 pg Normal 27.5-35.2 [facility] Comment on above: Performed By: #### E SR, TSH3, CK, HS TROP, CMP #### [address] MCV (RBC) [Entitic vol] 91.0 fL Normal 83.5-101 [facility] Comment on above: Performed By: #### E SR, TSH3, CK, HS TROP, CMP #### [address] Mean Corpuscular HGB Conc 33.8 g/dL Normal 32.5-35.6 [facility] Comment on above: Performed By: #### E SR, TSH3, CK, HS TROP, CMP #### [place] [address] [place] Monocytes (Bld) [#/Vol] 0.8 10*3/uL Normal 0.0-0.8 [facility] Comment on above: Performed By: #### E SR, TSH3, CK, HS TROP, CMP #### [place] [address] [place] Monocytes/100 WBC (Bld) 10.5 % Normal . [facility] Comment on above: Performed By: #### E SR, TSH3, CK, HS TROP, CMP #### [address] Neutrophils (Bld) [#/Vol] 5.5 10*3/uL Normal 1.8-7.7 [facility] Comment on above: Performed By: #### E SR, TSH3, CK, HS TROP, CMP #### [address] Neutrophils/100 WBC (Bld) 68.3 % Normal . [facility] Comment on above: Performed By: #### E SR, TSH3, CK, HS TROP, CMP #### [address] NRBC% 0.1 /100{WBC} Normal 0-0.5 [facility] Comment on above: Performed By: #### E SR, TSH3, CK, HS TROP, CMP #### [address] Platelet mean volume (Bld) [Entitic vol] 8.0 fL Normal 6.6-10.1 [facility] Comment on above: Performed By: #### E SR, TSH3, CK, HS TROP, CMP #### [address] Platelets (Bld) [#/Vol] 208 10*3/uL Normal 150-450 [facility] Comment on above: Performed By: #### E SR, TSH3, CK, HS TROP, CMP #### [address] RBC (Bld) [#/Vol] 3.96 10*6/uL Normal 3.90-5.60 [facility] Comment on above: Performed By: #### E SR, TSH3, CK, HS TROP, CMP #### [address] WBC (Bld) [#/Vol] 8.1 10*3/uL Normal 4.1-10.5 [facility] Comment on above: Performed By: #### E SR, TSH3, CK, HS TROP, CMP #### [address] Magnesiumon 07-12-2024 Magnesium [Mass/Vol] 1.6 mg/dL Low 1.9-2.7 [facility] Comment on above: Result Comment: PERF ORMED BY: [place] [address] PATHOLOGIST W[employer] INSTALLER RHONDA MCLEAN M.D. Performed By: #### E SR, TSH3, CK, HS TROP, CMP #### [address] Basic Metabolic Panelon 06-22 Anion gap [Moles/Vol] Not performed Normal 6.0-15.0 [facility] Comment on above: Performed By: #### E SR, TSH3, CK, HS TROP, CMP #### [address] Calcium [Mass/Vol] 8.9 mg/dL Normal 8.6-10.3 [facility] Comment on above: Performed By: #### E SR, TSH3, CK, HS TROP, CMP #### [address] Chloride [Moles/Vol] 110 mmol/L High 98-107 [facility] Comment on above: Performed By: #### E SR, TSH3, CK, HS TROP, CMP #### [address] CO2 [Moles/Vol] 27.8 mmol/L Normal 21.0-31.0 [facility] Comment on above: Performed By: #### E SR, TSH3, CK, HS TROP, CMP #### [address] Creatinine [Mass/Vol] 1.07 mg/dL Normal 0.70-1.30 [facility] Comment on above: Performed By: #### E SR, TSH3, CK, HS TROP, CMP #### [facility] [address] [place] [address] [place] Creatinine Clr Calc Pharmacy 75.55 Normal [facility] Comment on above: Performed By: #### E SR, TSH3, CK, HS TROP, CMP #### [facility] [address] [place] [address] [place] GFR/1.73 sq M.predicted MDRD (S/P/Bld) [Vol rate/Area] mL/min/{1.73_m2} Normal [facility] Comment on above: Performed By: #### E SR, TSH3, CK, HS TROP, CMP #### [facility] [address] Glucose [Mass/Vol] 100 mg/dL Normal 70-100 [facility] Comment on above: Result Comment: [facility] Glucose Reference Range is dependent on time and content of last meal. Glucose of more than 200 mg/dL in a nonstressed, ambulatory subject supports the diagnosis of Diabetes Mellitus. ADA recommended reference range Performed By: #### E SR, TSH3, CK, HS TROP, CMP #### [facility] [address] Potassium Normal 3.5-5.1 [facility] Comment on above: Result Comment: Spec imen hemolyzed, redraw requested Performed By: #### E SR, TSH3, CK, HS TROP, CMP #### [facility] [address] [place] [address] [place] Sodium [Moles/Vol] 136 mmol/L Normal 136-145 [facility] Comment on above: Performed By: #### E SR, TSH3, CK, HS TROP, CMP #### [facility] [address] [place] [address] [place] Urea nitrogen [Mass/Vol] 25 mg/dL Normal 7-25 [facility] Comment on above: Performed By: #### E SR, TSH3, CK, HS TROP, CMP #### [facility] [address] Complete Blood Count Auto Di ffon 07-11-2024 Basophils (Bld) [#/Vol] 0.0 10*3/uL Normal 0.0-0.2 [facility] Comment on above: Result Comment: PERF ORMED BY: [place] [address] PATHOLOGIST W[employer] INSTALLER RHONDA MCLEAN M.D. Performed By: #### E SR, TSH3, CK, HS TROP, CMP #### [address] Basophils/100 WBC (Bld) 0.5 % Normal . [facility] Comment on above: Performed By: #### E SR, TSH3, CK, HS TROP, CMP #### [address] Eosinophils (Bld) [#/Vol] 0.1 10*3/uL Normal 0.0-0.45 [facility] Comment on above: Performed By: #### E SR, TSH3, CK, HS TROP, CMP #### [address] Eosinophils/100 WBC (Bld) 1.3 % Normal . [facility] Comment on above: Performed By: #### E SR, TSH3, CK, HS TROP, CMP #### [address] Erythrocyte distribution width (RBC) [Ratio] 15.1 % High 12.0-14.8 [facility] Comment on above: Performed By: #### E SR, TSH3, CK, HS TROP, CMP #### [address] Hematocrit (Bld) [Volume fraction] 37.7 % Low 38.8-50.0 [facility] Comment on above: Performed By: #### E SR, TSH3, CK, HS TROP, CMP #### [address] Hemoglobin (Bld) [Mass/Vol] 12.6 g/dL Low 13.0-17.0 [facility] Comment on above: Performed By: #### E SR, TSH3, CK, HS TROP, CMP #### [address] Lymphocytes (Bld) [#/Vol] 1.4 10*3/uL Normal 1.00-4.8 [facility] Comment on above: Performed By: #### E SR, TSH3, CK, HS TROP, CMP #### [address] Lymphocytes/100 WBC (Bld) 19.1 % Normal . [facility] Comment on above: Performed By: #### E SR, TSH3, CK, HS TROP, CMP #### [address] MCH (RBC) [Entitic mass] 30.6 pg Normal 27.5-35.2 [facility] Comment on above: Performed By: #### E SR, TSH3, CK, HS TROP, CMP #### [address] MCV (RBC) [Entitic vol] 91.4 fL Normal 83.5-101 [facility] Comment on above: Performed By: #### E SR, TSH3, CK, HS TROP, CMP #### [address] Mean Corpuscular HGB Conc 33.5 g/dL Normal 32.5-35.6 [facility] Comment on above: Performed By: #### E SR, TSH3, CK, HS TROP, CMP #### [address] Monocytes (Bld) [#/Vol] 0.7 10*3/uL Normal 0.0-0.8 [facility] Comment on above: Performed By: #### E SR, TSH3, CK, HS TROP, CMP #### [address] Monocytes/100 WBC (Bld) 9.1 % Normal . [facility] Comment on above: Performed By: #### E SR, TSH3, CK, HS TROP, CMP #### [address] [address] [place] Neutrophils (Bld) [#/Vol] 5.2 10*3/uL Normal 1.8-7.7 [facility] Comment on above: Performed By: #### E SR, TSH3, CK, HS TROP, CMP #### [address] Neutrophils/100 WBC (Bld) 70.0 % Normal . [facility] Comment on above: Performed By: #### E SR, TSH3, CK, HS TROP, CMP #### [address] NRBC% 0.1 /100{WBC} Normal 0-0.5 [facility] Comment on above: Performed By: #### E SR, TSH3, CK, HS TROP, CMP #### [address] Platelet mean volume (Bld) [Entitic vol] 8.0 fL Normal 6.6-10.1 [facility] Comment on above: Performed By: #### E SR, TSH3, CK, HS TROP, CMP #### [place] [address] [place] Platelets (Bld) [#/Vol] 217 10*3/uL Normal 150-450 [facility] Comment on above: Performed By: #### E SR, TSH3, CK, HS TROP, CMP #### [address] RBC (Bld) [#/Vol] 4.13 10*6/uL Normal 3.90-5.60 [facility] Comment on above: Performed By: #### E SR, TSH3, CK, HS TROP, CMP #### [place] [address] [place] WBC (Bld) [#/Vol] 7.4 10*3/uL Normal 4.1-10.5 [facility] Comment on above: Performed By: #### E SR, TSH3, CK, HS TROP, CMP #### [address] Magnesiumon 07-11-2024 Magnesium Normal 1.9-2.7 [facility] Comment on above: Result Comment: Spec imen hemolyzed, redraw requested PERFORMED BY: [place] [address] PATHOLOGIST W[employer] INSTALLER RHONDA MCLEAN M.D. Performed By: #### E SR, TSH3, CK, HS TROP, CMP #### [address] Redraw Magnesiumon 4 Magnesium [Mass/Vol] 1.6 mg/dL Low 1.9-2.7 [facility] Comment on above: Result Comment: PERF ORMED BY: [place] [address] PATHOLOGIST W[employer] INSTALLER RHONDA MCLEAN M.D. Performed By: #### R EDRAW K, REDRAW MG ####[address] Redraw Potassiumon 4 Potassium [Moles/Vol] 3.5 mmol/L Normal 3.5-5.1 [facility] Comment on above: Performed By: #### R EDRAW K, REDRAW MG ####[address] Basic Metabolic Panelon 06-22 Anion gap [Moles/Vol] 11.4 mmol/L Normal 6.0-15.0 [facility] Comment on above: Performed By: #### M G, CBC, BMP ####[address] Calcium [Mass/Vol] 9.0 mg/dL Normal 8.6-10.3 [facility] Comment on above: Performed By: #### M G, CBC, BMP ####[address] Chloride [Moles/Vol] 106 mmol/L Normal 98-107 [facility] Comment on above: Performed By: #### M G, CBC, BMP ####[place] [id number] [facility] CO2 [Moles/Vol] 27.8 mmol/L Normal 21.0-31.0 [facility] Comment on above: Performed By: #### M G, CBC, BMP ####[place] [id number] [facility] Creatinine [Mass/Vol] 1.29 mg/dL Significan t change down 0.70-1.30 [facility] Comment on above: Performed By: #### M G, CBC, BMP ####[address] Creatinine Clr Calc Pharmacy 62.66 Normal [facility] Comment on above: Performed By: #### M G, CBC, BMP ####[place] [id number] [facility] Estimated GFR 56.052 mL/Min Normal [facility] Comment on above: Performed By: #### M G, CBC, BMP ####[place] [id number] [facility] Glucose [Mass/Vol] 110 mg/dL High 70-100 [facility] Comment on above: Result Comment: [facility] Glucose Reference Range is dependent on time and content of last meal. Glucose of more than 200 mg/dL in a nonstressed, ambulatory subject supports the diagnosis of Diabetes Mellitus. ADA recommended reference range Performed By: #### M G, CBC, BMP ####[place] [id number] [facility] Potassium [Moles/Vol] 4.2 mmol/L Normal 3.5-5.1 [facility] Comment on above: Performed By: #### M G, CBC, BMP ####[place] [id number] [facility] Sodium [Moles/Vol] 141 mmol/L Normal 136-145 [facility] Comment on above: Performed By: #### M G, CBC, BMP ####[place] [id number] [facility] Urea nitrogen [Mass/Vol] 29 mg/dL High 7-25 [facility] Comment on above: Performed By: #### M G, CBC, BMP ####[address] Complete Blood Count Auto Di ffon 07-10-2024 Basophils (Bld) [#/Vol] 0.0 10*3/uL Normal 0.0-0.2 [facility] Comment on above: Result Comment: PERF ORMED BY: [facility] [address] [facility] [place] [place] [address] PATHOLOGIST [employer] INST[employer]ER RHONDA MCLEAN M.D. Performed By: #### Marcial Young, CBC, BMP ####[address] Basophils/100 WBC (Bld) 0.6 % Normal . [facility] Comment on above: Performed By: #### Marcial Young, CBC, BMP ####[address] Eosinophils (Bld) [#/Vol] 0.0 10*3/uL Normal 0.0-0.45 [facility] Comment on above: Performed By: #### Marcial Young, CBC, BMP ####[address] Eosinophils/100 WBC (Bld) 0.4 % Normal . [facility] Comment on above: Performed By: #### Marcial Young, CBC, BMP ####[address] Erythrocyte distribution width (RBC) [Ratio] 14.7 % Normal 12.0-14.8 [facility] Comment on above: Performed By: #### Marcial G, CBC, BMP ####[address] Hematocrit (Bld) [Volume fraction] 37.6 % Low 38.8-50.0 [facility] Comment on above: Performed By: #### Marcial G, CBC, BMP ####[address] [address] [place] Hemoglobin (Bld) [Mass/Vol] 12.7 g/dL Low 13.0-17.0 [facility] Comment on above: Performed By: #### M G, CBC, BMP ####[address] Lymphocytes (Bld) [#/Vol] 1.1 10*3/uL Normal 1.00-4.8 [facility] Comment on above: Performed By: #### M G, CBC, BMP ####[address] Lymphocytes/100 WBC (Bld) 13.3 % Normal . [facility] Comment on above: Performed By: #### M G, CBC, BMP ####[address] MCH (RBC) [Entitic mass] 31.1 pg Normal 27.5-35.2 [facility] Comment on above: Performed By: #### M G, CBC, BMP ####[address] MCV (RBC) [Entitic vol] 91.9 fL Normal 83.5-101 [facility] Comment on above: Performed By: #### M G, CBC, BMP ####[address] Mean Corpuscular HGB Conc 33.9 g/dL Normal 32.5-35.6 [facility] Comment on above: Performed By: #### M G, CBC, BMP ####[address] Monocytes (Bld) [#/Vol] 0.8 10*3/uL Normal 0.0-0.8 [facility] Comment on above: Performed By: #### M G, CBC, BMP ####[address] Monocytes/100 WBC (Bld) 10.5 % Normal . [facility] Comment on above: Performed By: #### M G, CBC, BMP ####[address] Neutrophils (Bld) [#/Vol] 6.0 10*3/uL Normal 1.8-7.7 [facility] Comment on above: Performed By: #### M G, CBC, BMP ####[address] Neutrophils/100 WBC (Bld) 75.2 % Normal . [facility] Comment on above: Performed By: #### M G, CBC, BMP ####[address] NRBC% 0.1 /100{WBC} Normal 0-0.5 [facility] Comment on above: Performed By: #### M G, CBC, BMP ####[address] Platelet mean volume (Bld) [Entitic vol] 8.2 fL Normal 6.6-10.1 [facility] Comment on above: Performed By: #### M G, CBC, BMP ####[address] Platelets (Bld) [#/Vol] 210 10*3/uL Normal 150-450 [facility] Comment on above: Performed By: #### M G, CBC, BMP ####[address] RBC (Bld) [#/Vol] 4.09 10*6/uL Normal 3.90-5.60 [facility] Comment on above: Performed By: #### M G, CBC, BMP ####[address] WBC (Bld) [#/Vol] 8.0 10*3/uL Normal 4.1-10.5 [facility] Comment on above: Performed By: #### M G, CBC, BMP ####[address] Magnesiumon 07-10-2024 Magnesium [Mass/Vol] 1.9 mg/dL Normal 1.9-2.7 [facility] Comment on above: Result Comment: PERF ORMED BY: [facility] [address] [place] [id number] PATHOLOGIST [employer] INST[employer]ER RHONDA MCLEAN M.D. Performed By: #### M G, CBC, BMP ####[facility] [id number] [place] [id number] [facility] Alanine aminotransferase [En zymatic activity/volume] in Serum or PlasmaOrdered By: Juli Thomas on 07-09-2024 ALT [Catalytic activity/Vol] Alanine aminotransferase [Enzymatic activity/volume] in Serum or Plasma 7-52 [facility] Albumin [Mass/volume] in Ser um or Plasma by Bromocresol green (BCG) dye binding methoOrdered By: Juli Thomas on 07-09-2024 Albumin BCG dye [Mass/Vol] Albumin [Mass/volume] in Serum or Plasma by Bromocresol green (BCG) dye binding metho 3.5-5.7 [facility] Alkaline phosphatase [Enzyma tic activity/volume] in Serum or PlasmaOrdered By: Juli Thomas on 07-09-2024 ALP [Catalytic activity/Vol] Alkaline phosphatase [Enzymatic activity/volume] in Serum or Plasma 34-104 [facility] Appearance of UrineOrdered B y: Juli Thomas on 07-09-2024 Appearance (U) Urine appearance Clear [facility] Aspartate aminotransferase [ Enzymatic activity/volume] in Serum or PlasmaOrdered By: Juli Thomas on 07-09-2024 AST [Catalytic activity/Vol] Aspartate aminotransferase [Enzymatic activity/volume] in Serum or Plasma 13-39 [facility] Bacteria [Presence] in Urine by AutomatedOrdered By: Juli Thomas on 07-09-2024 Bacteria Auto Ql (U) Bacteria [Presence] in Urine by Automated None Seen [facility] Basophils Auto (Bld) [#/Vol] Ordered By: Juli Thomas on 07-09-2024 Basophils (Bld) [#/Vol] Automated basophil count 0.0-0.[address] [facility] Basophils/100 WBC Auto (Bld) Ordered By: Juli Thomas on 07-09-2024 Basophils/100 WBC (Bld) Automated basophil % . [facility] Bilirubin Test strip Ql (U)O rdered By: Juli Thomas on 07-09-2024 Bilirubin Ql (U) Bilirubin.total [Pre sence] in Urine by Test strip Negative [facility] Bilirubin.total [Mass/volume ] in Serum or PlasmaOrdered By: Juli Thomas on 07-09-2024 Bilirubin [Mass/Vol] Bilirubin.total [Mass/volume] in Serum or Plasma 0.3-1.0 [facility] C reactive protein [Mass/vol ume] in Serum or PlasmaOrdered By: Juli Thomas on 07-09-2024 CRP [Mass/Vol] C reactive protein [Mass/volume] in Serum or Plasma High 0.0-0.5 [facility] C-Reactive Proteinon 024 C-Reactive Protein 3.1 mg/dL High 0.0-0.5 [facility] Comment on above: Result Comment: PERF ORMED BY: [place] [address] PATHOLOGIST [employer]ST[employer]ER RHONDA MCLEAN M.D. Performed By: #### E SR, TSH3, CK, HS TROP, CMP #### [address] angio neckon 07-09-2024 CT angio neck [facility] [place] [place] [address] CT Scan Report Signed Patient: Taurus Garcia MR#: [id number] : 1945 Acct:[id number] Age/Sex: 78 / M ADM Date: 07/09/24 Loc: ER Room: Type: [facility] ER Attending Dr: Copies to: Juli Thomas APRN Ordering Provider: Juli Thomas APRN Date of Service: 07/09/24 CT/CT angio head: vision changes ([id number]) CT/CT angio neck: vision changes CTA OF THE HEAD AND NECK WITH CONTRAST COMPARISON: None CLINICAL DATA: Blurred vision, increased weakness and pain all over. Spiral images were obtained through the head and neck following 90 mL Isovue-370. Sagittal and coronal MIP as well as 3-D volume rendered reconstructions of the carotid arteries and mentasta of [place] were reviewed. Stenosis is evaluated using NASCET criteria. This CT exam was performed using one or more following dose reduction techniques: Automated exposure control, adjustment of the mA and/or kV according to patient size, or use of iterative reconstruction technique. There is minor plaque at the aortic arch. The proximal great vessels show no significant abnormalities. There is atherosclerotic plaque at the origin of both vertebral arteries where there could be mild to moderate associated luminal narrowing. No additional vertebral stenosis or suspected dissection is seen. There is mild plaque at the carotid bifurcation on the right and mild to moderate at the left. There is less than 50% luminal narrowing at the proximal internal carotid artery on both sides. There is suspected left thyroid nodularity. There is reversal of the normal cervical curvature and multilevel degenerative changes. Limited images through the upper lungs show central and peripheral granulomatous changes. The distal vertebral, basilar and posterior cerebral arteries show no significant abnormalities. There is mild to moderate carotid siphon plaque with associated luminal narrowing. The anterior and middle cerebral arteries are patent. No focal stenosis or suspected thrombosis is identified. No aneurysms are seen. The dural venous sinuses are patent CT/CT angio head IMPRESSION: ATHEROSCLEROTIC PLAQUE, WITHOUT CRITICAL STENOSIS OR VASCULAR OCCLUSIVE DISEASE. Impression dictated by: Aide oMe M.D.07/09/2024 4:50 PM Dictation Location: [place] [address] Transcribed By: [facility] 07/09/24 1650 Dictated By: Aide Moe MD 07/09/24 1636 Signed By: 07/09/24 1650 Normal [facility] CT head stroke alert wo clemencia n 07-09-2024 CT head stroke alert wo [facility] Main [place] [address] [place] [address] CT Scan Report Signed Patient: Taurus Garcia MR#: [id number] : 1945 Acct:[id number] Age/Sex: 78 / M ADM Date: 07/09/24 Loc: ER Room: Type: [facility] ER Attending Dr: Copies to: Juli Thomas APRN Ordering Provider: Juli Thomas APRN Date of Service: 07/09/24 CT/CT head stroke alert wo con: headache/ vision changes CLINICAL DATA: Increased weakness, left blurred vision and pain all over. CT BRAIN WITHOUT CONTRAST - stroke alert: COMPARISON: MRI 02/28/2018 TECHNIQUE: Contiguous axial unenhanced images were obtained through the brain. This CT exam was performed using one or more following dose reduction techniques: Automated exposure control, adjustment of the mA and/or kV according to patient size, or use of iterative reconstruction technique. FINDINGS: There is some motion artifact. There is mild generalized atrophy. The ventricles are normal in size and position. Mild microvascular changes are noted. There are no additional areas of abnormal attenuation. There is no hemorrhage, mass effect or extra-axial collections. The imaged paranasal sinuses and mastoid air cells are clear. There is vertebral artery and carotid siphon plaque. There is hyperdensity at the wall of the right orbital globe of unknown chronicity or significance. CT/CT head stroke alert wo con IMPRESSION: MILD ATROPHY AND MICROVASCULAR DISEASE. NO DEFINITE ACUTE INTRACRANIAL ABNORMALITY WITHIN LIMITS OF MOTION. FOLLOW-UP IS RECOMMENDED SYMPTOMS WARRANT. COMMENT: Findings were discussed with Juli Thomas at 1628 hours Impression dictated by: Aide Moe M.D.07/09/2024 4:30 PM Dictation Location: [place] [address] Transcribed By: [facility] 07/09/24 1630 Dictated By: Aide Moe MD 07/09/24 1624 Signed By: 07/09/24 1630 Normal [facility] Calcium [Mass/volume] in Ser um or PlasmaOrdered By: Juli Thomas on 07-09-2024 Calcium [Mass/Vol] Calcium [Mass/volume ] in Serum or Plasma 8.6-10.3 [facility] Carbon dioxide, total [Moles /volume] in Serum or PlasmaOrdered By: Juli Thomas on 07-09-2024 CO2 [Moles/Vol] Carbon dioxide, tota l [Moles/volume] in Serum or Plasma 21.0-31.0 [facility] Chloride [Moles/volume] in [place] or PlasmaOrdered By: Juli Thomas on 07-09-2024 Chloride [Moles/Vol] Chloride [Moles/vol ume] in Serum or Plasma 98-107 [facility] Color Auto (U)Ordered By: Goyo Thomas on 07-09-2024 Color (U) Color of Urine by Auto Yellow Fi [facility] Complete Blood Count Auto Di ffon 07-09-2024 Basophils (Bld) [#/Vol] 0.0 10*3/uL Normal 0.0-0.2 [facility] Comment on above: Result Comment: PERF ORMED BY: [place] [address] PATHOLOGIST [employer] INST[employer]ER RHONDA MCLEAN M.D. Performed By: #### E SR, TSH3, CK, HS TROP, CMP #### [address] Basophils/100 WBC (Bld) 0.4 % Normal . [facility] Comment on above: Performed By: #### E SR, TSH3, CK, HS TROP, CMP #### [address] Eosinophils (Bld) [#/Vol] 0.1 10*3/uL Normal 0.0-0.45 [facility] Comment on above: Performed By: #### E SR, TSH3, CK, HS TROP, CMP #### [address] Eosinophils/100 WBC (Bld) 0.6 % Normal . [facility] Comment on above: Performed By: #### E SR, TSH3, CK, HS TROP, CMP #### [address] Erythrocyte distribution width (RBC) [Ratio] 15.0 % High 12.0-14.8 [facility] Comment on above: Performed By: #### E SR, TSH3, CK, HS TROP, CMP #### [address] Hematocrit (Bld) [Volume fraction] 39.5 % Normal 38.8-50.0 [facility] Comment on above: Performed By: #### E SR, TSH3, CK, HS TROP, CMP #### [address] Hemoglobin (Bld) [Mass/Vol] 13.1 g/dL Normal 13.0-17.0 [facility] Comment on above: Performed By: #### E SR, TSH3, CK, HS TROP, CMP #### [address] Lymphocytes (Bld) [#/Vol] 0.7 10*3/uL Low 1.00-4.8 [facility] Comment on above: Performed By: #### E SR, TSH3, CK, HS TROP, CMP #### [address] Lymphocytes/100 WBC (Bld) 6.3 % Normal . [facility] Comment on above: Performed By: #### E SR, TSH3, CK, HS TROP, CMP #### [address] MCH (RBC) [Entitic mass] 30.8 pg Normal 27.5-35.2 [facility] Comment on above: Performed By: #### E SR, TSH3, CK, HS TROP, CMP #### [address] MCV (RBC) [Entitic vol] 92.6 fL Normal 83.5-101 [facility] Comment on above: Performed By: #### E SR, TSH3, CK, HS TROP, CMP #### [address] Mean Corpuscular HGB Conc 33.2 g/dL Normal 32.5-35.6 [facility] Comment on above: Performed By: #### E SR, TSH3, CK, HS TROP, CMP #### [address] Monocytes (Bld) [#/Vol] 1.3 10*3/uL High 0.0-0.8 [facility] Comment on above: Performed By: #### E SR, TSH3, CK, HS TROP, CMP #### [address] Monocytes/100 WBC (Bld) 18.70 % Normal 0.00-20.00 [facility] Comment on above: Performed By: #### E SR, TSH3, CK, HS TROP, CMP #### [address] Monocytes/100 WBC (Bld) 12.2 % Normal . [facility] Comment on above: Performed By: #### E SR, TSH3, CK, HS TROP, CMP #### [address] Neutrophils (Bld) [#/Vol] 8.4 10*3/uL High 1.8-7.7 [facility] Comment on above: Performed By: #### E SR, TSH3, CK, HS TROP, CMP #### [address] Neutrophils/100 WBC (Bld) 80.5 % Normal . [facility] Comment on above: Performed By: #### E SR, TSH3, CK, HS TROP, CMP #### [address] NRBC% 0.0 /100{WBC} Normal 0-0.5 [facility] Comment on above: Performed By: #### E SR, TSH3, CK, HS TROP, CMP #### [address] Platelet mean volume (Bld) [Entitic vol] 7.9 fL Normal 6.6-10.1 [facility] Comment on above: Performed By: #### E SR, TSH3, CK, HS TROP, CMP #### [address] Platelets (Bld) [#/Vol] 229 10*3/uL Normal 150-450 [facility] Comment on above: Performed By: #### E SR, TSH3, CK, HS TROP, CMP #### [address] RBC (Bld) [#/Vol] 4.27 10*6/uL Normal 3.90-5.60 [facility] Comment on above: Performed By: #### E SR, TSH3, CK, HS TROP, CMP #### [address] WBC (Bld) [#/Vol] 10.4 10*3/uL Normal 4.1-10.5 [facility] Comment on above: Performed By: #### E SR, TSH3, CK, HS TROP, CMP #### [address] Comprehensive Metabolic Pane radha 07-09-2024 Albumin [Mass/Vol] 3.5 g/dL Normal 3.5-5.7 [facility] Comment on above: Performed By: #### E SR, TSH3, CK, HS TROP, CMP #### [address] Albumin/Globulin [Mass ratio] 1.3 {ratio} Normal [facility] Comment on above: Performed By: #### E SR, TSH3, CK, HS TROP, CMP #### [address] ALP [Catalytic activity/Vol] 53 U/L Normal 34-104 [facility] Comment on above: Performed By: #### E SR, TSH3, CK, HS TROP, CMP #### [address] ALT [Catalytic activity/Vol] 17 U/L Normal 7-52 [facility] Comment on above: Performed By: #### E SR, TSH3, CK, HS TROP, CMP #### [address] Anion gap [Moles/Vol] 11.2 mmol/L Normal 6.0-15.0 [facility] Comment on above: Performed By: #### E SR, TSH3, CK, HS TROP, CMP #### [address] AST [Catalytic activity/Vol] 18 U/L Normal 13-39 [facility] Comment on above: Performed By: #### E SR, TSH3, CK, HS TROP, CMP #### [address] Bilirubin [Mass/Vol] 0.7 mg/dL Normal 0.3-1.0 [facility] Comment on above: Performed By: #### E SR, TSH3, CK, HS TROP, CMP #### [address] Calcium [Mass/Vol] 9.5 mg/dL Normal 8.6-10.3 [facility] Comment on above: Performed By: #### E SR, TSH3, CK, HS TROP, CMP #### [address] Chloride [Moles/Vol] 104 mmol/L Normal 98-107 [facility] Comment on above: Performed By: #### E SR, TSH3, CK, HS TROP, CMP #### [address] CO2 [Moles/Vol] 28.8 mmol/L Normal 21.0-31.0 [facility] Comment on above: Performed By: #### E SR, TSH3, CK, HS TROP, CMP #### [address] Creatinine [Mass/Vol] 1.86 mg/dL High 0.70-1.30 [facility] Comment on above: Performed By: #### E SR, TSH3, CK, HS TROP, CMP #### [address] Estimated GFR 36.131 mL/Min Normal [facility] Comment on above: Performed By: #### E SR, TSH3, CK, HS TROP, CMP #### [address] Globulin (S) [Mass/Vol] 2.7 g/dL Normal [facility] Comment on above: Performed By: #### E SR, TSH3, CK, HS TROP, CMP #### [facility] [address] [place] [address] [place] Glucose [Mass/Vol] 135 mg/dL High 70-100 [facility] Comment on above: Result Comment: [place] Glucose Reference Range is dependent on time and content of last meal. Glucose of more than 200 mg/dL in a nonstressed, ambulatory subject supports the diagnosis of Diabetes Mellitus. ADA recommended reference range Performed By: #### E SR, TSH3, CK, HS TROP, CMP #### [facility] [address] Potassium [Moles/Vol] 4.0 mmol/L Normal 3.5-5.1 [facility] Comment on above: Performed By: #### E SR, TSH3, CK, HS TROP, CMP #### [facility] [address] [place] [address] [place] Protein [Mass/Vol] 6.2 g/dL Low 6.4-8.9 [facility] Comment on above: Performed By: #### E SR, TSH3, CK, HS TROP, CMP #### [facility] [address] [place] [id number] [place] Sodium [Moles/Vol] 140 mmol/L Normal 136-145 [facility] Comment on above: Performed By: #### E SR, TSH3, CK, HS TROP, CMP #### [facility] [address] [place] [address] [place] Urea nitrogen [Mass/Vol] 37 mg/dL High 7-25 [facility] Comment on above: Performed By: #### E SR, TSH3, CK, HS TROP, CMP #### [facility] [address] [place] [id number] [place] Creatinine [Mass/volume] in Serum or PlasmaOrdered By: Juli Thomas on 07-09-2024 Creatinine [Mass/Vol] Creatinine [Mass/v olume] in Serum or Plasma High 0.70-1.30 [facility] Dipstick and Microscopicon 1 09-08-2023 Appearance (U) Clear Normal Clear [facility] Comment on above: Order Comment: Name Collection Type:: Clean-Voided Midstream Performed By: #### E SR, TSH3, CK, HS TROP, CMP #### [facility] [address] [place] [address] [place] Bacteria,Urine None Seen Normal None Seen [facility] Comment on above: Order Comment: Name Collection Type:: Clean-Voided Midstream Performed By: #### E SR, TSH3, CK, HS TROP, CMP #### [place] [address] [place] Bilirubin,Urine Negative Normal Negative [facility] Comment on above: Order Comment: Name Collection Type:: Clean-Voided Midstream Performed By: #### E SR, TSH3, CK, HS TROP, CMP #### [place] [address] [place] Color (U) Light-Yellow Normal Yellow [facility] Comment on above: Order Comment: Name Collection Type:: Clean-Voided Midstream Performed By: #### E SR, TSH3, CK, HS TROP, CMP #### [place] [address] [place] Glucose Ql (U) Normal Normal Normal [facility] Comment on above: Order Comment: Name Collection Type:: Clean-Voided Midstream Performed By: #### E SR, TSH3, CK, HS TROP, CMP #### [place] [address] [place] Hyaline Casts,Urine 0 [LPF] Normal 0-8 [facility] Comment on above: Order Comment: Name Collection Type:: Clean-Voided Midstream Result Comment: PERF ORMED BY: [place] [address] PATHOLOGIST W[employer] INST[employer]ER RHONDA MCLEAN M.D. Performed By: #### E SR, TSH3, CK, HS TROP, CMP #### [place] [address] [place] Ketones Ql (U) Negative Normal Negative [facility] Comment on above: Order Comment: Name Collection Type:: Clean-Voided Midstream Performed By: #### E SR, TSH3, CK, HS TROP, CMP #### [address] Leukocyte esterase Test strip Ql (U) Negative Normal Negative [facility] Comment on above: Order Comment: Name Collection Type:: Clean-Voided Midstream Performed By: #### E SR, TSH3, CK, HS TROP, CMP #### [address] Nitrite,Urine Negative Normal Negative [facility] Comment on above: Order Comment: Name Collection Type:: Clean-Voided Midstream Performed By: #### E SR, TSH3, CK, HS TROP, CMP #### [address] Occult Blood,Urine Negative Normal Negative [facility] Comment on above: Order Comment: Name Collection Type:: Clean-Voided Midstream Result Comment: PERF ORMED BY: [place] [address] PATHOLOGIST W[employer] INST[employer]ER RHONDA MCLEAN M.D. Performed By: #### E SR, TSH3, CK, HS TROP, CMP #### [address] pH (U) 6.5 [pH] Normal 5.0-9.0 [facility] Comment on above: Order Comment: Name Collection Type:: Clean-Voided Midstream Performed By: #### E SR, TSH3, CK, HS TROP, CMP #### [address] Protein,Urine Trace High Negative [facility] Comment on above: Order Comment: Name Collection Type:: Clean-Voided Midstream Performed By: #### E SR, TSH3, CK, HS TROP, CMP #### [address] RBC,Urine 5 [HPF] High 0-4 [facility] Comment on above: Order Comment: Name Collection Type:: Clean-Voided Midstream Performed By: #### E SR, TSH3, CK, HS TROP, CMP #### [facility] [address] Specificy [place],Urine 1.018 Normal 1.001-1.03 0 [facility] Comment on above: Order Comment: Name Collection Type:: Clean-Voided Midstream Performed By: #### E SR, TSH3, CK, HS TROP, CMP #### [facility] [address] Urobilinogen,Urine Normal Normal Normal [facility] Comment on above: Order Comment: Name Collection Type:: Clean-Voided Midstream Performed By: #### E SR, TSH3, CK, HS TROP, CMP #### [address] WBC,Urine 1 [HPF] Normal 0-4 [facility] Comment on above: Order Comment: Name Collection Type:: Clean-Voided Midstream Performed By: #### E SR, TSH3, CK, HS TROP, CMP #### [address] ECG 12 lead ECGon 07-09-2024 ECG 12 lead ECG [facility] Main [place] [address] [place] [address] Electrocardiograph Report Signed Patient: Taurus Garcia MR#: [id number] : 1945 Acct:[id number] Age/Sex: 78 / M ADM Date: 07/09/24 Loc: Room: [address] [place] [address] Type: ADM IN Attending Dr: Danie Jaramillo DO Ordering Provider: Juli Thomas APRN Date of Service: 07/09/24 ECG/ECG 12 lead ECG: Weakness Copies to: Test Reason : Blood Pressure : 154/69 mmHG Vent. Rate : 61 BPM Atrial Rate : 61 BPM P-R Int : 146 ms QRS Dur : 98 ms QT Int : 424 ms P-R-T Axes : 46 27 39 degrees QTcB Int : 426 ms Normal sinus rhythm Low voltage QRS Borderline ECG When compared with ECG of 20-Jun-2024 07:36, aberrant conduction is no longer present Confirmed by Reji Kumar ([id number]) on 07/10/2024 11:52:37 PM Referred By: Electronically Signed By: Reji Kumar Transcribed By: MUS Signed By Reji Kumar MD 07/10/24 6588 Normal [facility] Eosinophils Auto (Bld) [#/Vo l]Ordered By: Juli Thomas on 07-09-2024 Eosinophils (Bld) [#/Vol] Automated eosinophil count 0.0-0.45 [facility] Eosinophils/100 WBC Auto (Bl d)Ordered By: Juli Thomas on 07-09-2024 Eosinophils/100 WBC (Bld) Automated eosinophil % . [facility] Epithelial cells.squamous [# /area] in Urine sediment by Automated countOrdered By: Juli Thomas on 07-09-2024 Epithelial cells.squamous Auto (Urine sed) [#/Area] Epithelial cells.squamous [#/area] in Urine sediment by Automated count [facility] Erythrocyte Sedimentation Ra kimberlee 07-09-2024 ESR (Bld) [Velocity] 53 mm/h High 0- [facility] Comment on above: Result Comment: PERF ORMED BY: [place] [address] PATHOLOGIST W[employer] INST[employer]ER RHONDA MCLEAN M.D. Performed By: #### E SR, TSH3, CK, HS TROP, CMP #### [address] Erythrocyte distribution wid th Auto (RBC) [Ratio]Ordered By: Juli Thomas on 07-09-2024 Erythrocyte distribution width (RBC) [Ratio] Erythrocyte distribution width [Ratio] by Automated count High 12.0-14.8 [facility] Erythrocyte sedimentation ra te by Photometric methodOrdered By: Juli Thomas on 07-09-2024 ESR Photometric method (Bld) [Velocity] Erythrocyte sedimentation rate by Photometric method High 0-19 [facility] Erythrocytes [#/area] in Uri ne sediment by Automated countOrdered By: Juli Thomas on 07-09-2024 RBC Auto (Urine sed) [#/Area] Erythrocytes [#/area] in Urine sediment by Automated count High 0-4 [facility] Globulin Calc (S) [Mass/Vol] Ordered By: Juli Thomas on 07-09-2024 Globulin (S) [Mass/Vol] Serum globulin measurement by calculation (mass/volume) [facility] Glucose Glucometer (BldC) [M ass/Vol]Ordered By: Juli Thomas on 07-09-2024 Glucose [Mass/Vol] Capillary blood gluc ose measurement by glucometer (mass/volume) [facility] Comment on above: Random Glucose Refer ence Range is dependent on time and content of last meal. Glucose of more than 200 mg/dL in a nonstressed, ambulatory subject supports the diagnosis of Diabetes Mellitus. Glucose Poct Glucometerson 1 09-08-2023 Glucose [Mass/Vol] 130 mg/dL Normal [facility] Comment on above: Result Comment: [place] om Glucose Reference Range is dependent on time and content of last meal. Glucose of more than 200 mg/dL in a nonstressed, ambulatory subject supports the diagnosis of Diabetes Mellitus. PERFORMED BY: [place] [address] PATHOLOGIST W[employer] INST[employer]ER RHONDA MCLEAN M.D. Performed By: #### E SR, TSH3, CK, HS TROP, CMP #### [address] Glucose [Mass/volume] in Ser um or PlasmaOrdered By: Juli Thomas on 07-09-2024 Glucose [Mass/Vol] Glucose [Mass/volume ] in Serum or Plasma High 70-100 [facility] Comment on above: ADA recommended refe rence rangeRandom Glucose Reference Range is dependent on time and content of last meal. Glucose of more than 200 mg/dL in a nonstressed, ambulatory subject supports the diagnosis of Diabetes Mellitus. Glucose [Mass/volume] in Uri ne by Test stripOrdered By: Juli Thomas on 07-09-2024 Glucose Test strip (U) [Mass/Vol] Glucose [Mass/volume] in Urine by Test strip Normal [facility] Hematocrit Auto (Bld) [Volum e fraction]Ordered By: Juli Thomas on 07-09-2024 Hematocrit (Bld) [Volume fraction] Hematocrit [Volume Fraction] of Blood by Automated count 38.8-50.0 [facility] Hemoglobin Test strip Ql (U) Ordered By: Juli Thomas on 07-09-2024 Hemoglobin Ql (U) Hemoglobin [Presence ] in Urine by Test strip Negative [facility] Hemoglobin [Mass/volume] in BloodOrdered By: Juli Thomas on 07-09-2024 Hemoglobin (Bld) [Mass/Vol] Hemoglobin [Mass/volume] in Blood 13.0-17.0 [facility] Hyaline casts [#/area] in Ur ine sediment by Automated countOrdered By: Juli Thomas on 07-09-2024 Hyaline casts Auto (Urine sed) [#/Area] Hyaline casts [#/area] in Urine sediment by Automated count 0-8 [facility] INR in Platelet poor plasma by Coagulation assayOrdered By: Juli Thomas on 07-09-2024 INR Coag (PPP) [Relative time] INR in Platelet poor plasma by Coagulation assay [facility] Comment on above: INR Therapeutic Rang e A) Pre- and Peroperative OAT started two weeks before surgery. NOT HIP SURGERY: 1.5 - 2.5 HIP SURGERY: 2 - 3B) Primary and secondary prevention of venous THROMBOSIS: 2 - 3C) Active venous thrombosis, pulmonary embolismand prevention of recurrent venous thrombosis: 2 - 3D) Prevention of arterial thromboembolismincluding patients with mechanical heart valves: 3 - 4.5 Ketones Test strip Ql (U)Ord ered By: Juli Thomas on 07-09-2024 Ketones Ql (U) Ketones [Presence] i n Urine by Test strip Negative [facility] Leukocyte esterase [Presence ] in Urine by Test stripOrdered By: Juli Thomas on 07-09-2024 Leukocyte esterase Test strip Ql (U) Leukocyte esterase [Presence] in Urine by Test strip Negative [facility] Leukocytes [#/area] in Urine sediment by Automated countOrdered By: Juli Thomas on 07-09-2024 WBC Auto (Urine sed) [#/Area] Leukocytes [#/area] in Urine sediment by Automated count 0-4 [facility] Leukocytes [#/volume] correc blessing for nucleated erythrocytes in Blood by Automated counOrdered By: Juli Thomas on 07-09-2024 WBC corrected for nucl RBC Auto (Bld) [#/Vol] Leukocytes [#/volume] corrected for nucleated erythrocytes in Blood by Automated coun 4.1-10.5 [facility] Lymphocytes Auto (Bld) [#/Vo l]Ordered By: Juli Thomas on 07-09-2024 Lymphocytes (Bld) [#/Vol] Lymphocytes [#/volume] in Blood by Automated count Low 1.00-4.8 [facility] Lymphocytes/100 WBC Auto (Bl d)Ordered By: Juli Thomas on 07-09-2024 Lymphocytes/100 WBC (Bld) Lymphocytes/100 leukocytes in Blood by Automated count . [facility] MCH Auto (RBC) [Entitic mass ]Ordered By: Juli Thomas on 07-09-2024 MCH (RBC) [Entitic mass] MCH [Entitic mass] by Automated count 27.5-35.2 [facility] MCHC Auto (RBC) [Mass/Vol]Or dered By: Juli Thomas on 07-09-2024 MCHC (RBC) [Mass/Vol] MCHC [Mass/volume] by Automated count 32.5-35.6 [facility] MCV Auto (RBC) [Entitic vol] Ordered By: Juli Thomas on 07-09-2024 MCV (RBC) [Entitic vol] MCV [Entitic volume] by Automated count 83.5-101 [facility] Magnesiumon 07-09-2024 Magnesium [Mass/Vol] 1.9 mg/dL Normal 1.9-2.7 [facility] Comment on above: Result Comment: PERF ORMED BY: [place] [address] PATHOLOGIST [employer] RHONDA MCLEAN M.D. Performed By: #### E SR, TSH3, CK, HS TROP, CMP #### [address] Magnesium [Mass/volume] in [place] or PlasmaOrdered By: Juli Thomas on 07-09-2024 Magnesium [Mass/Vol] Magnesium [Mass/vol ume] in Serum or Plasma 1.9-2.7 [facility] Monocyte distribution width [Entitic volume] in Blood by AutomatedOrdered By: Juli Thomas on 07-09-2024 Monocyte distribution width Auto (Bld) [Entitic vol] Monocyte distribution width [Entitic volume] in Blood by Automated 0.00-20.00 [facility] Monocytes Auto (Bld) [#/Vol] Ordered By: Juli Thomas on 07-09-2024 Monocytes (Bld) [#/Vol] Automated blood monocyte count High 0.0-0.8 [facility] Monocytes/100 WBC Auto (Bld) Ordered By: Juli Thomas on 07-09-2024 Monocytes/100 WBC (Bld) Automated monocyte % . [facility] Neutrophils Auto (Bld) [#/Vo l]Ordered By: Juli Thomas on 07-09-2024 Neutrophils (Bld) [#/Vol] Neutrophils [#/volume] in Blood by Automated count High 1.8-7.7 [facility] Neutrophils/100 WBC Auto (Bl d)Ordered By: Juli Thomas on 07-09-2024 Neutrophils/100 WBC (Bld) Automated neutrophil % . [facility] Nitrite Test strip Ql (U)Ord ered By: Juli Thomas on 07-09-2024 Nitrite Ql (U) Nitrite [Presence] i n Urine by Test strip Negative [facility] No Panel InformationOrdered By: Juli Thomas on 07-09-2024 Estimated GFR (CKD-EPI) 36.131 mL/Min [facility] Pharmacy Creatinine Clearance (Chem N/A [facility] Nucleated erythrocytes [Pres ence] in Blood by Automated countOrdered By: Juli Thomas on 07-09-2024 Nucleated RBC Auto Ql (Bld) Nucleated erythrocytes [Presence] in Blood by Automated count 0-0.5 [facility] Partial Thromboplastin Timeo n 07-09-2024 aPTT Coag (Bld) [Time] 30.8 s Normal 25.1-36.5 [facility] Comment on above: Result Comment: A he matocrit value greater than 55% may lead to inaccurate results in coagulation testing. Patients having hematocrit values >55% require a special collection tube for coagulation studies. Please contact the laboratory at [phone] for redraw instructions. PERFORMED BY: [facility] [address] [id number] PATHOLOGIST [employer] RHONDA MCLEAN M.D. Performed By: #### E SR, TSH3, CK, HS TROP, CMP #### [facility] [address] [place] [place] [id number] [facility] Platelet mean volume Auto (B ld) [Entitic vol]Ordered By: Juli Thomas on 07-09-2024 Platelet mean volume (Bld) [Entitic vol] Platelet mean volume [Entitic volume] in Blood by Automated count 6.6-10.1 [facility] Platelets Auto (Bld) [#/Vol] Ordered By: Juli Thomas on 07-09-2024 Platelets (Bld) [#/Vol] Platelets [#/volume] in Blood by Automated count 150-450 [facility] Potassium [Moles/volume] in Serum or PlasmaOrdered By: [facility]i [facility]24 Potassium [Moles/Vol] Potassium [Moles/v olume] in Serum or Plasma 3.5-5.1 [facility] Protein Test strip (U) [Mass /Vol]Ordered By: Juli Thomas on 07-09-2024 Protein (U) [Mass/Vol] Protein [Mass/vol ume] in Urine by Test strip High Negative [facility] Protein [Mass/volume] in Ser um or PlasmaOrdered By: Juli Thomas on 07-09-2024 Protein [Mass/Vol] Protein [Mass/volume ] in Serum or Plasma Low 6.4-8.9 [facility] Prothrombin Time INRon 07-09 INR Coag (PPP) [Relative time] 1.6 {INR} Normal [facility] Comment on above: Result Comment: INR Therapeutic [...] with mechanical heart valves: 3 - 4.5 Performed By: #### E SR, TSH3, CK, HS TROP, CMP #### [facility] [address] [id number] [facility] PT Coag (PPP) [Time] 17.8 s High 9.0-12.9 [facility] Comment on above: Result Comment: A he matocrit value greater than 55% may lead to inaccurate results in coagulation testing. Patients having hematocrit values >55% require a special collection tube for coagulation studies. Please contact the laboratory at [phone] for redraw instructions. Performed By: #### E SR, TSH3, CK, HS TROP, CMP #### [facility] [address] [phone] [facility] Prothrombin time (PT)Ordered By: Jlui Thomas on 07-09-2024 PT Coag (PPP) [Time] Prothrombin time (PT) High 9.0- 12.9 [facility] Comment on above: A hematocrit value g reater than 55% may lead to inaccurate results in coagulation testing. Patients having hematocrit values >55% require a special collection tube for coagulation studies. Please contact the laboratory at [phone] for redraw instructions. RBC Auto (Bld) [#/Vol]Ordere d By: Juli Thomas on 07-09-2024 RBC (Bld) [#/Vol] Erythrocytes [#/volu me] in Blood by Automated count 3.90-5.60 [facility] Serum or plasma albumin/glob ulin mass ratioOrdered By: Juli Thomas on 07-09-2024 Albumin/Globulin [Mass ratio] Serum or plasma albumin/globulin mass ratio [facility] Serum or plasma anion gap de terminationOrdered By: Juli Thomas on 07-09-2024 Anion gap [Moles/Vol] Serum or plasma an ion gap determination 6.0-15.0 [facility] Sodium [Moles/volume] in Ser um or PlasmaOrdered By: Juli Thomas on 07-09-2024 Sodium [Moles/Vol] Sodium [Moles/volume ] in Serum or Plasma 136-145 [facility] Specific gravity Test strip (U) [Rel density]Ordered By: Juli Thomas on 07-09-2024 Specific gravity (U) [Rel density] Specific gravity of Urine by Test strip 1.001-1.03 0 [facility] Troponin I High Sensitivityo n 07-09-2024 Troponin I High Sensitivity 10.7 pg/mL Normal 0.0-20.0 [facility] Comment on above: Result Comment: PERF ORMED BY: [place] [address] PATHOLOGIST [employer] IN[employer]ER RHONDA MCLEAN M.D. Performed By: #### E SR, TSH3, CK, HS TROP, CMP #### [address] Troponin I.cardiac [Mass/vol ume] in Serum or Plasma by Detection limit <= 0.01 ng/Ordered By: Juli Thomas on 07-09-2024 Troponin I.cardiac DL <= 0.01 ng/mL [Mass/Vol] Troponin I.cardiac [Mass/volume] in Serum or Plasma by Detection limit <= 0.01 ng/ 0.0-20.0 [facility] Urea nitrogen [Mass/volume] in Serum or PlasmaOrdered By: Juli Thomas on 07-09-2024 Urea nitrogen [Mass/Vol] Urea nitrogen [Mass/volume] in Serum or Plasma High 7-25 [facility] Urobilinogen Test strip (U) [Mass/Vol]Ordered By: Juli Thomas on 07-09-2024 Urobilinogen (U) [Mass/Vol] Urobilinogen [Mass/volume] in Urine by Test strip Normal [facility] WBC Auto (Bld) [#/Vol]Ordere d By: Juli Thomas on 07-09-2024 WBC (Bld) [#/Vol] Leukocytes [#/volume ] in Blood by Automated count 4.1-10.5 [facility] X-ray reportOrdered By: Latasha Moe on 07-09-2024 Study report [facility] [address] [place] [address] [place] [address] XRay Report Signed Patient: Taurus Garcia MR#: [id number] : 1945 Acct:[id number] Age/Sex: 78 / M ADM Date: 4 Loc: ER Room: Type: [facility] ER Attending Dr: Copies to: Juli Thomas APRN~ Ordering Provider: Juli Thomas APRN Date of Service: 07/09/24 XR/XR chest 1V portable: Weakness PORTABLE AP ERECT CHEST 1606 hours CLINICAL HISTORY: Weakness, blurred vision and generalized pain. COMPARISON: 06/19/2024 Evaluation is slightly limited by large body habitus. There is continued mild elevation of the right hemidiaphragm. The cardiac and mediastinal contours are unchanged. Minor chronic changes are again noted. No developing consolidation is seen There is no effusion or pneumothorax. The osseous structures are intact. There is dextro scoliotic curvature and endplate spurring. There is also degenerative change at the shoulders. XR/XR chest 1V portable IMPRESSION: NO ACUTE FINDINGS Impression dictated by: Aide Moe M.D.07/09/2024 4:34 PM Dictation Location: [place] [address] Transcribed By: [facility] 07/09/24 163 Dictated By: Aide Moe MD 07/09/24 163 Signed By: 07/09/[address] [place] [address] Work Phone: XR chest 1V portableon 07-09 XR chest 1V portable [facility] [address] [place] [address] [place], [place] [id number] XRay Report Signed Patient: Taurus Garcia MR#: [id number] : 1945 Acct:[id number] Age/Sex: 78 / M ADM Date: 07/09/24 Loc: ER Room: Type: REG ER Attending Dr: Copies to: Juli Thomas APRN Ordering Provider: Juli Thomas APRN Date of Service: 07/09/24 XR/XR chest 1V portable: Weakness PORTABLE AP ERECT CHEST 1606 hours CLINICAL HISTORY: Weakness, blurred vision and generalized pain. COMPARISON: 06/19/2024 Evaluation is slightly limited by large body habitus. There is continued mild elevation of the right hemidiaphragm. The cardiac and mediastinal contours are unchanged. Minor chronic changes are again noted. No developing consolidation is seen There is no effusion or pneumothorax. The osseous structures are intact. There is dextro scoliotic curvature and endplate spurring. There is also degenerative change at the shoulders. XR/XR chest 1V portable IMPRESSION: NO ACUTE FINDINGS Impression dictated by: Aide Moe M.D.07/09/2024 4:34 PM Dictation Location: [place] [address] Transcribed By: KRISSY 07/09/24 1634 Dictated By: Aide Moe MD 07/09/24 1632 Signed By: 07/09/24 1634 Normal [facility] aPTT in Platelet poor plasma by Coagulation assayOrdered By: Juli Thomas on 07-09-2024 aPTT Coag (PPP) [Time] Activated partial thromboplastin time (aPTT) in platelet poor plasma by coagulation a 25.1-36.5 [facility] Comment on above: A hematocrit value g reater than 55% may lead to inaccurate results in coagulation testing. Patients having hematocrit values >55% require a special collection tube for coagulation studies. Please contact the laboratory at [phone] for redraw instructions. pH Test strip (U)Ordered By: Juli Thomas on 07-09-2024 pH (U) pH of Urine by Test strip 5.0-9.0 [facility] Basic Metabolic Panelon 06-21 Anion gap [Moles/Vol] 12.0 mmol/L Normal 6.0-15.0 [facility] Comment on above: Performed By: #### E SR, TSH3, CK, HS TROP, CMP #### [facility] [address] [place] [address] [facility] Calcium [Mass/Vol] 8.6 mg/dL Normal 8.6-10.3 [facility] Comment on above: Performed By: #### E SR, TSH3, CK, HS TROP, CMP #### [facility] [address] [place] [address] Chloride [Moles/Vol] 106 mmol/L Normal 98-107 [facility] Comment on above: Performed By: #### E SR, TSH3, CK, HS TROP, CMP #### [address] CO2 [Moles/Vol] 28.2 mmol/L Normal 21.0-31.0 [facility] Comment on above: Performed By: #### E SR, TSH3, CK, HS TROP, CMP #### [address] Creatinine [Mass/Vol] 1.07 mg/dL Normal 0.70-1.30 [facility] Comment on above: Performed By: #### E SR, TSH3, CK, HS TROP, CMP #### [address] Creatinine Clr Calc Pharmacy 75.58 Normal [facility] Comment on above: Result Comment: PERF ORMED BY: [place] [address] PATHOLOGIST [employer] IN[employer]ER GINA CARDONA M.D. Performed By: #### E SR, TSH3, CK, HS TROP, CMP #### [address] GFR/1.73 sq M.predicted MDRD (S/P/Bld) [Vol rate/Area] mL/min/{1.73_m2} Normal [facility] Comment on above: Performed By: #### E SR, TSH3, CK, HS TROP, CMP #### [address] Glucose [Mass/Vol] 96 mg/dL Normal 70-100 [facility] Comment on above: Result Comment: [place] Glucose Reference Range is dependent on time and content of last meal. Glucose of more than 200 mg/dL in a nonstressed, ambulatory subject supports the diagnosis of Diabetes Mellitus. ADA recommended reference range Performed By: #### E SR, TSH3, CK, HS TROP, CMP #### [place] [address] [place] Potassium [Moles/Vol] 3.2 mmol/L Low 3.5-5.1 [facility] Comment on above: Performed By: #### E SR, TSH3, CK, HS TROP, CMP #### [facility] [address] Sodium [Moles/Vol] 143 mmol/L Normal 136-145 [facility] Comment on above: Performed By: #### E SR, TSH3, CK, HS TROP, CMP #### [facility] [address] Urea nitrogen [Mass/Vol] 21 mg/dL Normal 7-25 [facility] Comment on above: Performed By: #### E SR, TSH3, CK, HS TROP, CMP #### [facility] [address] Calcium [Mass/volume] in Ser um or PlasmaOrdered By: Silvestre Grover on 07-03-2024 Calcium [Mass/Vol] Calcium [Mass/volume ] in Serum or Plasma 8.6-10.3 [facility] Carbon dioxide, total [Moles /volume] in Serum or PlasmaOrdered By: Silvestre Grover on 07-03-2024 CO2 [Moles/Vol] Carbon dioxide, tota l [Moles/volume] in Serum or Plasma 21.0-31.0 [facility] Chloride [Moles/volume] in [place] or PlasmaOrdered By: Silvestre Grover on 07-03-2024 Chloride [Moles/Vol] Chloride [Moles/vol ume] in Serum or Plasma 98-107 [facility] Creatinine [Mass/volume] in Serum or PlasmaOrdered By: Silvestre Grover on 07-03-2024 Creatinine [Mass/Vol] Creatinine [Mass/v olume] in Serum or Plasma 0.70-1.30 [facility] Glucose [Mass/volume] in Ser um or PlasmaOrdered By: Silvestre Grover on 07-03-2024 Glucose [Mass/Vol] Glucose [Mass/volume ] in Serum or Plasma 70-100 [facility] Comment on above: ADA recommended refe rence rangeRandom Glucose Reference Range is dependent on time and content of last meal. Glucose of more than 200 mg/dL in a nonstressed, ambulatory subject supports the diagnosis of Diabetes Mellitus. No Panel InformationOrdered By: Silvestre Grover on 07-03-2024 Estimated GFR (CKD-EPI) > 60.0 mL/Min [facility] Creatinine Clearance (Chem 75.58 [facility] Potassium [Moles/volume] in Serum or PlasmaOrdered By: Silvestre Grover on 07-03-2024 Potassium [Moles/Vol] Potassium [Moles/v olume] in Serum or Plasma Low 3.5-5.1 [facility] Serum or plasma anion gap de terminationOrdered By: Silvetsre Grover on 07-03-2024 Anion gap [Moles/Vol] Serum or plasma an ion gap determination 6.0-15.0 [facility] Sodium [Moles/volume] in Ser um or PlasmaOrdered By: Silvestre Grover on 07-03-2024 Sodium [Moles/Vol] Sodium [Moles/volume ] in Serum or Plasma 136-145 [facility] Urea nitrogen [Mass/volume] in Serum or PlasmaOrdered By: Silvestre Grover on 07-03-2024 Urea nitrogen [Mass/Vol] Urea nitrogen [Mass/volume] in Serum or Plasma 7-25 [facility] Basic Metabolic Panelon 06-21 Anion gap [Moles/Vol] 12.2 mmol/L Normal 6.0-15.0 [facility] Comment on above: Performed By: #### E SR, TSH3, CK, HS TROP, CMP #### [facility] [address] [place] [address] [place] Calcium [Mass/Vol] 8.4 mg/dL Low 8.6-10.3 [facility] Comment on above: Performed By: #### E SR, TSH3, CK, HS TROP, CMP #### [facility] [address] [place] [phone] [place] Chloride [Moles/Vol] 106 mmol/L Normal 98-107 [facility] Comment on above: Performed By: #### E SR, TSH3, CK, HS TROP, CMP #### [facility] [address] [phone] [place] CO2 [Moles/Vol] 29.1 mmol/L Normal 21.0-31.0 [facility] Comment on above: Performed By: #### E SR, TSH3, CK, HS TROP, CMP #### [address] Creatinine [Mass/Vol] 1.20 mg/dL Normal 0.70-1.30 [facility] Comment on above: Performed By: #### E SR, TSH3, CK, HS TROP, CMP #### [place] [address] [place] Creatinine Clr Calc Pharmacy 67.36 Normal [facility] Comment on above: Result Comment: PERF ORMED BY: [place] [address] PATHOLOGIST [employer]ER GINA CARDONA M.D. Performed By: #### E SR, TSH3, CK, HS TROP, CMP #### [place] [address] [place] GFR/1.73 sq M.predicted MDRD (S/P/Bld) [Vol rate/Area] mL/min/{1.73_m2} Normal [facility] Comment on above: Performed By: #### E SR, TSH3, CK, HS TROP, CMP #### [address] Glucose [Mass/Vol] 91 mg/dL Normal 70-100 [facility] Comment on above: Result Comment: [place] Glucose Reference Range is dependent on time and content of last meal. Glucose of more than 200 mg/dL in a nonstressed, ambulatory subject supports the diagnosis of Diabetes Mellitus. ADA recommended reference range Performed By: #### E SR, TSH3, CK, HS TROP, CMP #### [place] [address] [place] Potassium [Moles/Vol] 3.3 mmol/L Low 3.5-5.1 [facility] Comment on above: Performed By: #### E SR, TSH3, CK, HS TROP, CMP #### [place] [id number] [place] Sodium [Moles/Vol] 144 mmol/L Normal 136-145 [facility] Comment on above: Performed By: #### E SR, TSH3, CK, HS TROP, CMP #### [address] Urea nitrogen [Mass/Vol] 22 mg/dL Normal 7-25 [facility] Comment on above: Performed By: #### E SR, TSH3, CK, HS TROP, CMP #### [address] Basophils Auto (Bld) [#/Vol] Ordered By: Silvestre Grover on 07-02-2024 Basophils (Bld) [#/Vol] Automated basophil count [facility] Basophils/100 WBC Auto (Bld) Ordered By: Silvestre Grover on 07-02-2024 Basophils/100 WBC (Bld) Automated basophil % [facility] Diff and CBCon 07-02-2024 Erythrocyte distribution width (RBC) [Ratio] 14.8 % Normal 12.0-14.8 [facility] Comment on above: Performed By: #### E SR, TSH3, CK, HS TROP, CMP #### [address] Hematocrit (Bld) [Volume fraction] 36.3 % Low 38.8-50.0 [facility] Comment on above: Performed By: #### E SR, TSH3, CK, HS TROP, CMP #### [address] Hemoglobin (Bld) [Mass/Vol] 12.4 g/dL Low 13.0-17.0 [facility] Comment on above: Performed By: #### E SR, TSH3, CK, HS TROP, CMP #### [address] Lymphocytes/100 WBC (Bld) 15 % Low 18-42 [facility] Comment on above: Performed By: #### E SR, TSH3, CK, HS TROP, CMP #### [address] MCH (RBC) [Entitic mass] 31.4 pg Normal 27.5-35.2 [facility] Comment on above: Performed By: #### E SR, TSH3, CK, HS TROP, CMP #### [address] MCV (RBC) [Entitic vol] 91.8 fL Normal 83.5-101 [facility] Comment on above: Performed By: #### E SR, TSH3, CK, HS TROP, CMP #### [address] Mean Corpuscular HGB Conc 34.2 g/dL Normal 32.5-35.6 [facility] Comment on above: Performed By: #### E SR, TSH3, CK, HS TROP, CMP #### [address] Monocytes/100 WBC (Bld) 8 % Normal 2-11 [facility] Comment on above: Performed By: #### E SR, TSH3, CK, HS TROP, CMP #### [address] Myelocytes 1 % High 0-0 [facility] Comment on above: Performed By: #### E SR, TSH3, CK, HS TROP, CMP #### [address] Platelet Estimate Normal Normal Normal [facility] Comment on above: Performed By: #### E SR, TSH3, CK, HS TROP, CMP #### [address] Platelet mean volume (Bld) [Entitic vol] 8.8 fL Normal 6.6-10.1 [facility] Comment on above: Performed By: #### E SR, TSH3, CK, HS TROP, CMP #### [address] Platelet Morphology Normal Normal Normal [facility] Comment on above: Result Comment: PERF ORMED BY: [place] [address] PATHOLOGIST [employer] GINA CARDONA M.D. Performed By: #### E SR, TSH3, CK, HS TROP, CMP #### [address] Platelets (Bld) [#/Vol] 195 10*3/uL Normal 150-450 [facility] Comment on above: Performed By: #### E SR, TSH3, CK, HS TROP, CMP #### [address] RBC (Bld) [#/Vol] 3.95 10*6/uL Normal 3.90-5.60 [facility] Comment on above: Performed By: #### E SR, TSH3, CK, HS TROP, CMP #### [address] RBC morphology finding Nom (Bld) Normal Normal Normal [facility] Comment on above: Performed By: #### E SR, TSH3, CK, HS TROP, CMP #### [address] Segmented neutrophils/100 WBC (Bld) 76 % High 50-70 [facility] Comment on above: Performed By: #### E SR, TSH3, CK, HS TROP, CMP #### [address] WBC (Bld) [#/Vol] 9.1 10*3/uL Normal 4.1-10.5 [facility] Comment on above: Performed By: #### E SR, TSH3, CK, HS TROP, CMP #### [address] Eosinophils Auto (Bld) [#/Vo l]Ordered By: Silvestre Grover on 07-02-2024 Eosinophils (Bld) [#/Vol] Automated eosinophil count [facility] Eosinophils/100 WBC Auto (Bl d)Ordered By: Silvestre Grover on 07-02-2024 Eosinophils/100 WBC (Bld) Automated eosinophil % [facility] Erythrocyte distribution wid th Auto (RBC) [Ratio]Ordered By: Silvestre Grover on 07-02-2024 Erythrocyte distribution width (RBC) [Ratio] Erythrocyte distribution width [Ratio] by Automated count 12.0-14.8 [facility] Erythrocyte morphology findi ng [Identifier] in BloodOrdered By: Silvestre Grover on 07-02-2024 RBC morphology finding Nom (Bld) RBC morphology Normal [facility] Hematocrit Auto (Bld) [Volum e fraction]Ordered By: Silvestre Grover on 07-02-2024 Hematocrit (Bld) [Volume fraction] Hematocrit [Volume Fraction] of Blood by Automated count Low 38.8-50.0 [facility] Hemoglobin [Mass/volume] in BloodOrdered By: Silvestre Grover on 07-02-2024 Hemoglobin (Bld) [Mass/Vol] Hemoglobin [Mass/volume] in Blood Low 13.0-17.0 [facility] Leukocytes [#/volume] correc blessing for nucleated erythrocytes in Blood by Automated counOrdered By: Silvestre Grover on 07-02-2024 WBC corrected for nucl RBC Auto (Bld) [#/Vol] Leukocytes [#/volume] corrected for nucleated erythrocytes in Blood by Automated coun 4.1-10.5 [facility] Lymphocytes Auto (Bld) [#/Vo l]Ordered By: Silvestre Grover on 07-02-2024 Lymphocytes (Bld) [#/Vol] Lymphocytes [#/volume] in Blood by Automated count [facility] Lymphocytes/100 WBC Auto (Bl d)Ordered By: Silvestre Grover on 07-02-2024 Lymphocytes/100 WBC (Bld) Lymphocytes/100 leukocytes in Blood by Automated count [facility] Lymphocytes/100 WBC Manual c nt (Bld)Ordered By: Silvestre Grover on 07-02-2024 Lymphocytes/100 WBC (Bld) Lymphocytes/100 leukocytes in Blood by Manual count Low 18-42 [facility] MCH Auto (RBC) [Entitic mass ]Ordered By: Silvestre Grover on 07-02-2024 MCH (RBC) [Entitic mass] MCH [Entitic mass] by Automated count 27.5-35.2 [facility] MCHC Auto (RBC) [Mass/Vol]Or dered By: Silvestre Grover on 07-02-2024 MCHC (RBC) [Mass/Vol] MCHC [Mass/volume] by Automated count 32.5-35.6 [facility] MCV Auto (RBC) [Entitic vol] Ordered By: Silvestre Grover on 07-02-2024 MCV (RBC) [Entitic vol] MCV [Entitic volume] by Automated count 83.5-101 [facility] Monocytes Auto (Bld) [#/Vol] Ordered By: Silvestre Grover on 07-02-2024 Monocytes (Bld) [#/Vol] Automated blood monocyte count [facility] Monocytes/100 WBC Auto (Bld) Ordered By: Silvsetre Grover on 07-02-2024 Monocytes/100 WBC (Bld) Automated monocyte % [facility] Monocytes/100 WBC Manual cnt (Bld)Ordered By: Silvestre Grover on 07-02-2024 Monocytes/100 WBC (Bld) Monocytes/100 leukocytes in Blood by Manual count 2-11 [facility] Myelocytes/100 WBC Manual cn t (Bld)Ordered By: Silvestre Grover on 07-02-2024 Myelocytes/100 WBC (Bld) Myelocytes/100 leukocytes in Blood by Manual count High 0-0 [facility] Neutrophils Auto (Bld) [#/Vo l]Ordered By: Silvestre Grover on 07-02-2024 Neutrophils (Bld) [#/Vol] Neutrophils [#/volume] in Blood by Automated count [facility] Neutrophils/100 WBC Auto (Bl d)Ordered By: Silvestre Grover on 07-02-2024 Neutrophils/100 WBC (Bld) Automated neutrophil % [facility] Nucleated erythrocytes [Pres ence] in Blood by Automated countOrdered By: Silvestre Grover on 07-02-2024 Nucleated RBC Auto Ql (Bld) Nucleated erythrocytes [Presence] in Blood by Automated count [facility] Platelet adequacy [Presence] in Blood by Light microscopyOrdered By: Silvestre Grover on 07-02-2024 Platelets LM Ql (Bld) Platelet adequacy [Presence] in Blood by Light microscopy Normal [facility] Platelet mean volume Auto (B ld) [Entitic vol]Ordered By: Silvestre Grover on 07-02-2024 Platelet mean volume (Bld) [Entitic vol] Platelet mean volume [Entitic volume] in Blood by Automated count 6.6-10.1 [facility] Platelet morphology finding [Identifier] in BloodOrdered By: Silvestre Grover on 07-02-2024 Platelet morphology finding Nom (Bld) Platelet morphology finding [Identifier] in Blood Normal [facility] Platelets Auto (Bld) [#/Vol] Ordered By: Silvestre Grover on 07-02-2024 Platelets (Bld) [#/Vol] Platelets [#/volume] in Blood by Automated count 150-450 [facility] RBC Auto (Bld) [#/Vol]Ordere d By: Silvestre Grover on 07-02-2024 RBC (Bld) [#/Vol] Erythrocytes [#/volu me] in Blood by Automated count 3.90-5.60 [facility] Segmented neutrophils/100 WB C Manual cnt (Bld)Ordered By: Silvestre Grover on 07-02-2024 Segmented neutrophils/100 WBC (Bld) Manual blood segmented neutrophils/100 leukocytes High 50-70 [facility] WBC Auto (Bld) [#/Vol]Ordere d By: Silvestre Grover on 07-02-2024 WBC (Bld) [#/Vol] Leukocytes [#/volume ] in Blood by Automated count 4.1-10.5 [facility] Basic Metabolic Panelon Anion gap [Moles/Vol] 10.3 mmol/L Normal 6.0-15.0 [facility] Comment on above: Performed By: #### B MP ####[place] [id number] [address] Calcium [Mass/Vol] 8.6 mg/dL Normal 8.6-10.3 [facility] Comment on above: Performed By: #### B MP ####[facility] [place] [id number] [facility] Chloride [Moles/Vol] 102 mmol/L Normal 98-107 [facility] Comment on above: Performed By: #### B MP ####[facility] [place] [id number] [facility] CO2 [Moles/Vol] 32.9 mmol/L High 21.0-31.0 [facility] Comment on above: Performed By: #### B MP ####[address] Creatinine [Mass/Vol] 1.26 mg/dL Normal 0.70-1.30 [facility] Comment on above: Performed By: #### B MP ####[place] [id number] [facility] Creatinine Clr Calc Pharmacy 64.44 Normal [facility] Comment on above: Result Comment: PERF ORMED BY: [facility] [address] [place] [id number] PATHOLOGIST [employer] GINA CARDONA M.D. Performed By: #### B MP ####[address] GFR/1.73 sq M.predicted MDRD (S/P/Bld) [Vol rate/Area] 57.657 mL/min/{1.73_m2} Normal [facility] Comment on above: Performed By: #### B MP ####[address] Glucose [Mass/Vol] 97 mg/dL Normal 70-100 [facility] Comment on above: Result Comment: [place] Glucose Reference Range is dependent on time and content of last meal. Glucose of more than 200 mg/dL in a nonstressed, ambulatory subject supports the diagnosis of Diabetes Mellitus. ADA recommended reference range Performed By: #### B MP ####[address] Potassium [Moles/Vol] 3.2 mmol/L Low 3.5-5.1 [facility] Comment on above: Performed By: #### B MP ####[place] [id number] [facility] Sodium [Moles/Vol] 142 mmol/L Normal 136-145 [facility] Comment on above: Performed By: #### B MP ####[place] [id number] [facility] Urea nitrogen [Mass/Vol] 30 mg/dL High 7-25 [facility] Comment on above: Performed By: #### B MP ####[place] [id number] [address] Basic Metabolic Panelon 11-0 Anion gap [Moles/Vol] Not performed Normal 6.0-15.0 [facility] Comment on above: Performed By: #### E SR, TSH3, CK, HS TROP, CMP #### [facility] [address] Calcium [Mass/Vol] 8.9 mg/dL Normal 8.6-10.3 [facility] Comment on above: Performed By: #### E SR, TSH3, CK, HS TROP, CMP #### [facility] [address] Chloride [Moles/Vol] 103 mmol/L Normal 98-107 [facility] Comment on above: Performed By: #### E SR, TSH3, CK, HS TROP, CMP #### [address] CO2 [Moles/Vol] 28.9 mmol/L Normal 21.0-31.0 [facility] Comment on above: Performed By: #### E SR, TSH3, CK, HS TROP, CMP #### [address] Creatinine [Mass/Vol] 1.27 mg/dL Normal 0.70-1.30 [facility] Comment on above: Performed By: #### E SR, TSH3, CK, HS TROP, CMP #### [address] Creatinine Clr Calc Pharmacy 63.75 Normal [facility] Comment on above: Result Comment: PERF ORMED BY: [place] [address] PATHOLOGIST [employer] GINA CARDONA M.D. Performed By: #### E SR, TSH3, CK, HS TROP, CMP #### [address] GFR/1.73 sq M.predicted MDRD (S/P/Bld) [Vol rate/Area] 57.112 mL/min/{1.73_m2} Normal [facility] Comment on above: Performed By: #### E SR, TSH3, CK, HS TROP, CMP #### [facility] [address] Glucose [Mass/Vol] 122 mg/dL High 70-100 [facility] Comment on above: Result Comment: [facility] Glucose Reference Range is dependent on time and content of last meal. Glucose of more than 200 mg/dL in a nonstressed, ambulatory subject supports the diagnosis of Diabetes Mellitus. ADA recommended reference range Performed By: #### E SR, TSH3, CK, HS TROP, CMP #### [address] Potassium Normal 3.5-5.1 [facility] Comment on above: Result Comment: Spec imen hemolyzed, redraw requested Performed By: #### E SR, TSH3, CK, HS TROP, CMP #### [address] Sodium [Moles/Vol] 140 mmol/L Normal 136-145 [facility] Comment on above: Performed By: #### E SR, TSH3, CK, HS TROP, CMP #### [address] Urea nitrogen [Mass/Vol] 38 mg/dL High 7-25 [facility] Comment on above: Performed By: #### E SR, TSH3, CK, HS TROP, CMP #### [place] [address] [place] [employer] Potassiumon 4 Potassium [Moles/Vol] 3.5 mmol/L Normal 3.5-5.1 [facility] Comment on above: Result Comment: PERF ORMED BY: [place] [address] PATHOLOGIST [employer] GINA CARDONA M.D. Performed By: #### R EDW K ####[facility] [place] [address] Alanine aminotransferase [En zymatic activity/volume] in Serum or PlasmaOrdered By: Antonia Grier on 06-23-2024 ALT [Catalytic activity/Vol] Alanine aminotransferase [Enzymatic activity/volume] in Serum or Plasma 7-52 [facility] Albumin [Mass/volume] in Ser um or Plasma by Bromocresol green (BCG) dye binding methoOrdered By: Antonia Grier on 06-23-2024 Albumin BCG dye [Mass/Vol] Albumin [Mass/volume] in Serum or Plasma by Bromocresol green (BCG) dye binding metho 3.5-5.7 [facility] Alkaline phosphatase [Enzyma tic activity/volume] in Serum or PlasmaOrdered By: Antonia Grier on 06-23-2024 ALP [Catalytic activity/Vol] Alkaline phosphatase [Enzymatic activity/volume] in Serum or Plasma 34-104 [facility] Aspartate aminotransferase [ Enzymatic activity/volume] in Serum or PlasmaOrdered By: Antonia Grier on 06-23-2024 AST [Catalytic activity/Vol] Aspartate aminotransferase [Enzymatic activity/volume] in Serum or Plasma 13-39 [facility] Bilirubin.total [Mass/volume ] in Serum or PlasmaOrdered By: Antonia Grier on 06-23-2024 Bilirubin [Mass/Vol] Bilirubin.total [Mass/volume] in Serum or Plasma 0.3-1.0 [facility] Complete Blood Count Auto Di ffon 06-23-2024 Basophils (Bld) [#/Vol] 0.0 10*3/uL Normal 0.0-0.2 [facility] Comment on above: Result Comment: PERF ORMED BY: [facility] [address] [place] [address] PATHOLOGIST [employer] GINA CARDONA M.D. Performed By: #### C MP, PAB, CBC ####[facility] [place] [address] [place] Basophils/100 WBC (Bld) 0.2 % Normal . [facility] Comment on above: Performed By: #### C MP, PAB, CBC ####[facility] [place] [address] [place] Eosinophils (Bld) [#/Vol] 0.0 10*3/uL Normal 0.0-0.45 [facility] Comment on above: Performed By: #### C MP, PAB, CBC ####[address] Eosinophils/100 WBC (Bld) 0.1 % Normal . [facility] Comment on above: Performed By: #### C MP, PAB, CBC ####[address] Erythrocyte distribution width (RBC) [Ratio] 14.7 % Normal 12.0-14.8 [facility] Comment on above: Performed By: #### C MP, PAB, CBC ####[address] Hematocrit (Bld) [Volume fraction] 40.9 % Normal 38.8-50.0 [facility] Comment on above: Performed By: #### C MP, PAB, CBC ####[address] Hemoglobin (Bld) [Mass/Vol] 13.6 g/dL Normal 13.0-17.0 [facility] Comment on above: Performed By: #### C MP, PAB, CBC ####[address] Lymphocytes (Bld) [#/Vol] 1.2 10*3/uL Normal 1.00-4.8 [facility] Comment on above: Performed By: #### C MP, PAB, CBC ####[address] Lymphocytes/100 WBC (Bld) 10.7 % Normal . [facility] Comment on above: Performed By: #### C MP, PAB, CBC ####[address] MCH (RBC) [Entitic mass] 30.8 pg Normal 27.5-35.2 [facility] Comment on above: Performed By: #### C MP, PAB, CBC ####[address] MCV (RBC) [Entitic vol] 92.4 fL Normal 83.5-101 [facility] Comment on above: Performed By: #### C MP, PAB, CBC ####[address] Mean Corpuscular HGB Conc 33.3 g/dL Normal 32.5-35.6 [facility] Comment on above: Performed By: #### C MP, PAB, CBC ####[address] Monocytes (Bld) [#/Vol] 1.0 10*3/uL High 0.0-0.8 [facility] Comment on above: Performed By: #### C MP, PAB, CBC ####[address] Monocytes/100 WBC (Bld) 8.7 % Normal . [facility] Comment on above: Performed By: #### C MP, PAB, CBC ####[address] Neutrophils (Bld) [#/Vol] 9.1 10*3/uL High 1.8-7.7 [facility] Comment on above: Performed By: #### C MP, PAB, CBC ####[address] Neutrophils/100 WBC (Bld) 80.3 % Normal . [facility] Comment on above: Performed By: #### C MP, PAB, CBC ####[address] NRBC% 0.1 /100{WBC} Normal 0-0.5 [facility] Comment on above: Performed By: #### C MP, PAB, CBC ####[address] Platelet mean volume (Bld) [Entitic vol] 8.6 fL Normal 6.6-10.1 [facility] Comment on above: Performed By: #### C MP, PAB, CBC ####[address] Platelets (Bld) [#/Vol] 195 10*3/uL Normal 150-450 [facility] Comment on above: Performed By: #### C MP, PAB, CBC ####[address] RBC (Bld) [#/Vol] 4.43 10*6/uL Normal 3.90-5.60 [facility] Comment on above: Performed By: #### C MP, PAB, CBC ####[address] WBC (Bld) [#/Vol] 11.3 10*3/uL High 4.1-10.5 [facility] Comment on above: Performed By: #### C MP, PAB, CBC ####[address] Comprehensive Metabolic Pane radha 06-23-2024 Albumin [Mass/Vol] 3.5 g/dL Normal 3.5-5.7 [facility] Comment on above: Performed By: #### C MP, PAB, CBC ####[address] Albumin/Globulin [Mass ratio] 1.6 {ratio} Normal [facility] Comment on above: Performed By: #### C MP, PAB, CBC ####[address] ALP [Catalytic activity/Vol] 50 U/L Normal 34-104 [facility] Comment on above: Performed By: #### C MP, PAB, CBC ####[place] [id number] [facility] ALT [Catalytic activity/Vol] 16 U/L Normal 7-52 [facility] Comment on above: Performed By: #### C MP, PAB, CBC ####[address] Anion gap [Moles/Vol] 11.3 mmol/L Normal 6.0-15.0 [facility] Comment on above: Performed By: #### C MP, PAB, CBC ####[address] [address] [facility] AST [Catalytic activity/Vol] 18 U/L Normal 13-39 [facility] Comment on above: Performed By: #### C MP, PAB, CBC ####[address] [address] [facility] Bilirubin [Mass/Vol] 0.7 mg/dL Normal 0.3-1.0 [facility] Comment on above: Performed By: #### C MP, PAB, CBC ####[address] [address] [facility] Calcium [Mass/Vol] 9.1 mg/dL Normal 8.6-10.3 [facility] Comment on above: Performed By: #### C MP, PAB, CBC ####[place] [id number] [facility] Chloride [Moles/Vol] 100 mmol/L Normal 98-107 [facility] Comment on above: Performed By: #### C MP, PAB, CBC ####[address] [address] [place] CO2 [Moles/Vol] 33.6 mmol/L High 21.0-31.0 [facility] Comment on above: Performed By: #### C MP, PAB, CBC ####[address] [address] [place] Creatinine [Mass/Vol] 1.62 mg/dL High 0.70-1.30 [facility] Comment on above: Performed By: #### C MP, PAB, CBC ####[address] [address] [place] Creatinine Clr Calc Pharmacy 50.98 Normal [facility] Comment on above: Performed By: #### C MP, PAB, CBC ####[place] [id number] [place] GFR/1.73 sq M.predicted MDRD (S/P/Bld) [Vol rate/Area] 42.646 mL/min/{1.73_m2} Normal [facility] Comment on above: Performed By: #### C MP, PAB, CBC ####[place] [id number] [facility] Globulin (S) [Mass/Vol] 2.2 g/dL Normal [facility] Comment on above: Performed By: #### C MP, PAB, CBC ####[place] [id number] [facility] Glucose [Mass/Vol] 119 mg/dL High 70-100 [facility] Comment on above: Result Comment: [facility] Glucose Reference Range is dependent on time and content of last meal. Glucose of more than 200 mg/dL in a nonstressed, ambulatory subject supports the diagnosis of Diabetes Mellitus. ADA recommended reference range Performed By: #### C MP, PAB, CBC ####[address] Potassium [Moles/Vol] 3.9 mmol/L Normal 3.5-5.1 [facility] Comment on above: Performed By: #### C MP, PAB, CBC ####[place] [id number] [facility] Protein [Mass/Vol] 5.7 g/dL Low 6.4-8.9 [facility] Comment on above: Performed By: #### C MP, PAB, CBC ####[place] [id number] [facility] Sodium [Moles/Vol] 141 mmol/L Normal 136-145 [facility] Comment on above: Performed By: #### C MP, PAB, CBC ####[place] [id number] [facility] Urea nitrogen [Mass/Vol] 44 mg/dL High 7-25 [facility] Comment on above: Performed By: #### C MP, PAB, CBC ####[place] [id number] [facility] Globulin Calc (S) [Mass/Vol] Ordered By: Antonia Grier on 06-23-2024 Globulin (S) [Mass/Vol] Serum globulin measurement by calculation (mass/volume) [facility] Prealbuminon 06-23-2024 Prealbumin [Mass/Vol] 32.1 mg/dL Normal 17.0-34.0 [facility] Comment on above: Result Comment: PERF ORMED BY: [place] [address] PATHOLOGIST [employer] GINA CARDONA M.D. Performed By: #### C MP, PAB, CBC ####[facility] [address] Prealbumin [Mass/volume] in Serum or PlasmaOrdered By: Antonia Grier on 06-23-2024 Prealbumin [Mass/Vol] Prealbumin [Mass/v olume] in Serum or Plasma 17.0-34.0 [facility] Protein [Mass/volume] in Ser um or PlasmaOrdered By: Antonia Grier on 06-23-2024 Protein [Mass/Vol] Protein [Mass/volume ] in Serum or Plasma Low 6.4-8.9 [facility] Serum or plasma albumin/glob ulin mass ratioOrdered By: Antonia Grier on 06-23-2024 Albumin/Globulin [Mass ratio] Serum or plasma albumin/globulin mass ratio [facility] Automated basophil %Ordered By: Mateo Horne on 06-22-2024 Basophils/100 WBC (Bld) 0.1 % Normal . [facility] Comment on above: Performed By: #### E SR, TSH3, CK, HS TROP, CMP #### [facility] [address] [place] [address] Automated basophil countOrde red By: Mateo Horne on 06-22-2024 Basophils (Bld) [#/Vol] 0.0 10*3/uL Normal 0.0-0.2 [facility] Comment on above: Result Comment: PERF ORMED BY: [place] [id number] PATHOLOGIST [employer] GINA CARDONA M.D. Performed By: #### E SR, TSH3, CK, HS TROP, CMP #### [address] Automated blood monocyte cou ntOrdered By: Mateo Horne on 06-22-2024 Monocytes (Bld) [#/Vol] 1.1 10*3/uL High 0.0-0.8 [facility] Comment on above: Performed By: #### E SR, TSH3, CK, HS TROP, CMP #### [address] Automated eosinophil %Ordere d By: Mateo Horne on 06-22-2024 Eosinophils/100 WBC (Bld) 0.2 % Normal . [facility] Comment on above: Performed By: #### E SR, TSH3, CK, HS TROP, CMP #### [address] Automated eosinophil countOr dered By: Mateo Horne on 06-22-2024 Eosinophils (Bld) [#/Vol] 0.0 10*3/uL Normal 0.0-0.45 [facility] Comment on above: Performed By: #### E SR, TSH3, CK, HS TROP, CMP #### [address] Automated monocyte %Ordered By: Mateo Horne on 06-22-2024 Monocytes/100 WBC (Bld) 9.8 % Normal . [facility] Comment on above: Performed By: #### E SR, TSH3, CK, HS TROP, CMP #### [address] Automated neutrophil %Ordere d By: Mateo Horne on 06-22-2024 Neutrophils/100 WBC (Bld) 77.3 % Normal . [facility] Comment on above: Performed By: #### E SR, TSH3, CK, HS TROP, CMP #### [address] Basic Metabolic Panelon 11-0 Creatinine Clr Calc Pharmacy 47.41 Normal [facility] Comment on above: Performed By: #### E SR, TSH3, CK, HS TROP, CMP #### [facility] [address] GFR/1.73 sq M.predicted MDRD (S/P/Bld) [Vol rate/Area] 39.967 mL/min/{1.73_m2} Normal [facility] Comment on above: Performed By: #### E SR, TSH3, CK, HS TROP, CMP #### [facility] [address] [place] [address] [place] Basophils Auto (Bld) [#/Vol] Ordered By: aMteo Horne on 06-22-2024 Basophils (Bld) [#/Vol] Automated basophil count 0.0-0.[address] [facility] Basophils/100 WBC Auto (Bld) Ordered By: Mateo Horne on 06-22-2024 Basophils/100 WBC (Bld) Automated basophil % . [facility] Calcium [Mass/volume] in Ser um or PlasmaOrdered By: Mateo Horne on 06-22-2024 Calcium [Mass/Vol] 8.9 mg/dL Normal 8.6-10.3 [facility] Comment on above: Performed By: #### E SR, TSH3, CK, HS TROP, CMP #### [facility] [address] Calcium [Mass/Vol] Calcium [Mass/volume ] in Serum or Plasma 8.6-10.3 [facility] Carbon dioxide, total [Moles /volume] in Serum or PlasmaOrdered By: Mateo Horne on 06-22-2024 CO2 [Moles/Vol] 32.8 mmol/L High 21.0-31.0 [facility] Comment on above: Performed By: #### E SR, TSH3, CK, HS TROP, CMP #### [address] CO2 [Moles/Vol] Carbon dioxide, tota l [Moles/volume] in Serum or Plasma High 21.0-31.0 [facility] Chloride [Moles/volume] in [place] or PlasmaOrdered By: Mateo Horne on 06-22-2024 Chloride [Moles/Vol] 98 mmol/L Normal 98-107 [facility] Comment on above: Performed By: #### E SR, TSH3, CK, HS TROP, CMP #### [facility] [address] Chloride [Moles/Vol] Chloride [Moles/vol ume] in Serum or Plasma 98-107 [facility] Complete Blood Count Auto Di ffon 06-22-2024 Mean Corpuscular HGB Conc 33.6 g/dL Normal 32.5-35.6 [facility] Comment on above: Performed By: #### E SR, TSH3, CK, HS TROP, CMP #### [address] NRBC% 0.1 /100{WBC} Normal 0-0.5 [facility] Comment on above: Performed By: #### E SR, TSH3, CK, HS TROP, CMP #### [place] [address] [place] Creatinine [Mass/volume] in Serum or PlasmaOrdered By: Mateo Horne on 06-22-2024 Creatinine [Mass/Vol] 1.71 mg/dL High 0.70-1.30 [facility] Comment on above: Performed By: #### E SR, TSH3, CK, HS TROP, CMP #### [facility] [address] [place] [address] Creatinine [Mass/Vol] Creatinine [Mass/v olume] in Serum or Plasma High 0.70-1.30 [facility] Eosinophils Auto (Bld) [#/Vo l]Ordered By: Mateo Horne on 06-22-2024 Eosinophils (Bld) [#/Vol] Automated eosinophil count 0.0-0.45 [facility] Eosinophils/100 WBC Auto (Bl d)Ordered By: Mateo Horne on 06-22-2024 Eosinophils/100 WBC (Bld) Automated eosinophil % . [facility] Erythrocyte distribution wid th Auto (RBC) [Ratio]Ordered By: Mateo Horne on 06-22-2024 Erythrocyte distribution width (RBC) [Ratio] Erythrocyte distribution width [Ratio] by Automated count 12.0-14.8 [facility] Erythrocyte distribution wid th [Ratio] by Automated countOrdered By: Mateo Horne on 06-22-2024 Erythrocyte distribution width (RBC) [Ratio] 14.8 % Normal 12.0-14.8 [facility] Comment on above: Performed By: #### E SR, TSH3, CK, HS TROP, CMP #### [facility] [address] [place] [address] [place] Erythrocytes [#/volume] in B lood by Automated countOrdered By: Mateo Horne on 06-22-2024 RBC (Bld) [#/Vol] 4.40 10*6/uL Normal 3.90-5.60 [facility] Comment on above: Performed By: #### E SR, TSH3, CK, HS TROP, CMP #### [facility] [address] [place] [address] [place] Glucose [Mass/volume] in Ser um or PlasmaOrdered By: Mateo Horne on 06-22-2024 Glucose [Mass/Vol] 116 mg/dL High 70-100 [facility] Comment on above: ADA recommended refe rence rangeRandom Glucose Reference Range is dependent on time and content of last meal. Glucose of more than 200 mg/dL in a nonstressed, ambulatory subject supports the diagnosis of Diabetes Mellitus. Result Comment: [place] Glucose Reference Range is dependent on time and content of last meal. Glucose of more than 200 mg/dL in a nonstressed, ambulatory subject supports the diagnosis of Diabetes Mellitus. ADA recommended reference range Performed By: #### E SR, TSH3, CK, HS TROP, CMP #### [facility] [address] [place] [id number] [place] Glucose [Mass/Vol] Glucose [Mass/volume ] in Serum or Plasma High 70-100 [facility] Comment on above: ADA recommended refe rence rangeRandom Glucose Reference Range is dependent on time and content of last meal. Glucose of more than 200 mg/dL in a nonstressed, ambulatory subject supports the diagnosis of Diabetes Mellitus. Hematocrit Auto (Bld) [Volum e fraction]Ordered By: Mateo Horne on 06-22-2024 Hematocrit (Bld) [Volume fraction] Hematocrit [Volume Fraction] of Blood by Automated count 38.8-50.0 [facility] Hematocrit [Volume Fraction] of Blood by Automated countOrdered By: Mateo Horne on 06-22-2024 Hematocrit (Bld) [Volume fraction] 40.5 % Normal 38.8-50.0 [facility] Comment on above: Performed By: #### E SR, TSH3, CK, HS TROP, CMP #### [facility] [address] Hemoglobin [Mass/volume] in BloodOrdered By: Mateo Horne on 06-22-2024 Hemoglobin (Bld) [Mass/Vol] 13.6 g/dL Normal 13.0-17.0 [facility] Comment on above: Performed By: #### E SR, TSH3, CK, HS TROP, CMP #### [facility] [address] [place] [address] [place] Hemoglobin (Bld) [Mass/Vol] Hemoglobin [Mass/volume] in Blood 13.0-17.0 [facility] Leukocytes [#/volume] correc blessing for nucleated erythrocytes in Blood by Automated counOrdered By: Mateo Horne on 06-22-2024 WBC corrected for nucl RBC Auto (Bld) [#/Vol] 11.1 10*3/uL High 4.1-10.5 [facility] WBC corrected for nucl RBC Auto (Bld) [#/Vol] Leukocytes [#/volume] corrected for nucleated erythrocytes in Blood by Automated coun [facility] 4.1-10.5 [facility] Leukocytes [#/volume] in Blo od by Automated countOrdered By: Mateo Horne on 06-22-2024 WBC (Bld) [#/Vol] 11.1 10*3/uL High 4.1-10.5 [facility] Comment on above: Performed By: #### E SR, TSH3, CK, HS TROP, CMP #### [address] Lymphocytes Auto (Bld) [#/Vo l]Ordered By: Mateo Horne on 06-22-2024 Lymphocytes (Bld) [#/Vol] Lymphocytes [#/volume] in Blood by Automated count 1.00-4.8 [facility] Lymphocytes [#/volume] in Bl ood by Automated countOrdered By: Mateo Horne on 06-22-2024 Lymphocytes (Bld) [#/Vol] 1.4 10*3/uL Normal 1.00-4.8 [facility] Comment on above: Performed By: #### E SR, TSH3, CK, HS TROP, CMP #### [address] Lymphocytes/100 WBC Auto (Bl d)Ordered By: Mateo Horne on 06-22-2024 Lymphocytes/100 WBC (Bld) Lymphocytes/100 leukocytes in Blood by Automated count . [facility] Lymphocytes/100 leukocytes i n Blood by Automated countOrdered By: Mateo Horne on 06-22-2024 Lymphocytes/100 WBC (Bld) 12.6 % Normal . [facility] Comment on above: Performed By: #### E SR, TSH3, CK, HS TROP, CMP #### [address] MCH Auto (RBC) [Entitic mass ]Ordered By: Mateo Horne on 06-22-2024 MCH (RBC) [Entitic mass] MCH [Entitic mass] by Automated count 27.5-35.2 [facility] MCH [Entitic mass] by Automa blessing countOrdered By: Mateo Horne on 06-22-2024 MCH (RBC) [Entitic mass] 30.9 pg Normal 27.5-35.2 [facility] Comment on above: Performed By: #### E SR, TSH3, CK, HS TROP, CMP #### [address] [place] [address] [place] MCHC Auto (RBC) [Mass/Vol]Or dered By: Mateo Horne on 06-22-2024 MCHC (RBC) [Mass/Vol] 33.6 g/dL 32.5-35.6 [facility] MCHC (RBC) [Mass/Vol] MCHC [Mass/volume] by Automated count 32.5-35.6 [facility] MCV Auto (RBC) [Entitic vol] Ordered By: Mateo Horne on 06-22-2024 MCV (RBC) [Entitic vol] MCV [Entitic volume] by Automated count 83.5-101 [facility] MCV [Entitic volume] by Auto mated countOrdered By: Mateo Horne on 06-22-2024 MCV (RBC) [Entitic vol] 92.0 fL Normal 83.5-101 [facility] Comment on above: Performed By: #### E SR, TSH3, CK, HS TROP, CMP #### [facility] [address] [place] [address] Magnesium [Mass/volume] in [place] or PlasmaOrdered By: Mateo Horne on 06-22-2024 Magnesium [Mass/Vol] 2.0 mg/dL Normal 1.9-2.7 [facility] Comment on above: Result Comment: PERF ORMED BY: [address] [place] [address] PATHOLOGIST [employer] GINA CARDONA M.D. Performed By: #### C BC, MG, CMP #### [place] [id number] [facility] Magnesium [Mass/Vol] Magnesium [Mass/vol ume] in Serum or Plasma 1.9-2.7 [facility] Monocytes Auto (Bld) [#/Vol] Ordered By: Mateo Horne on 06-22-2024 Monocytes (Bld) [#/Vol] Automated blood monocyte count High 0.0-0.8 [facility] Monocytes/100 WBC Auto (Bld) Ordered By: Mateo Horne on 06-22-2024 Monocytes/100 WBC (Bld) Automated monocyte % . [facility] Neutrophils Auto (Bld) [#/Vo l]Ordered By: Mateo Horne on 06-22-2024 Neutrophils (Bld) [#/Vol] Neutrophils [#/volume] in Blood by Automated count High 1.8-7.7 [facility] Neutrophils [#/volume] in Bl ood by Automated countOrdered By: Mateo Horne on 06-22-2024 Neutrophils (Bld) [#/Vol] 8.6 10*3/uL High 1.8-7.7 [facility] Comment on above: Performed By: #### E SR, TSH3, CK, HS TROP, CMP #### [address] Neutrophils/100 WBC Auto (Bl d)Ordered By: Mateo Horne on 06-22-2024 Neutrophils/100 WBC (Bld) Automated neutrophil % . [facility] No Panel InformationOrdered By: Mateo Horne on 06-22-2024 Estimated GFR (CKD-EPI) 39.967 mL/Min [facility] Creatinine Clearance (Chem 47.41 [facility] Nucleated erythrocytes [Pres ence] in Blood by Automated countOrdered By: Mateo Horne on 06-22-2024 Nucleated RBC Auto Ql (Bld) 0.1 /100{WBC} 0-0.5 [facility] Nucleated RBC Auto Ql (Bld) Nucleated erythrocytes [Presence] in Blood by Automated count 0-0.5 [facility] Platelet mean volume Auto (B ld) [Entitic vol]Ordered By: Mateo Horne on 06-22-2024 Platelet mean volume (Bld) [Entitic vol] Platelet mean volume [Entitic volume] in Blood by Automated count 6.6-10.1 [facility] Platelet mean volume [Entiti c volume] in Blood by Automated countOrdered By: Mateo Horne on 06-22-2024 Platelet mean volume (Bld) [Entitic vol] 8.6 fL Normal 6.6-10.1 [facility] Comment on above: Performed By: #### E SR, TSH3, CK, HS TROP, CMP #### [facility] [address] [place] [address] Platelets Auto (Bld) [#/Vol] Ordered By: Mateo Horne on 06-22-2024 Platelets (Bld) [#/Vol] Platelets [#/volume] in Blood by Automated count 150-450 [facility] Platelets [#/volume] in Bloo d by Automated countOrdered By: Mateo Horne on 06-22-2024 Platelets (Bld) [#/Vol] 187 10*3/uL Normal 150-450 [facility] Comment on above: Performed By: #### E SR, TSH3, CK, HS TROP, CMP #### [address] Potassium [Moles/volume] in Serum or PlasmaOrdered By: Mateo Horne on 06-22-2024 Potassium [Moles/Vol] 3.2 mmol/L Low 3.5-5.1 [facility] Comment on above: Performed By: #### E SR, TSH3, CK, HS TROP, CMP #### [address] Potassium [Moles/Vol] Potassium [Moles/v olume] in Serum or Plasma Low 3.5-5.1 [facility] RBC Auto (Bld) [#/Vol]Ordere d By: Mateo Horne on 06-22-2024 RBC (Bld) [#/Vol] Erythrocytes [#/volu me] in Blood by Automated count 3.90-5.60 [facility] Serum or plasma anion gap de terminationOrdered By: Mateo Horne on 06-22-2024 Anion gap [Moles/Vol] 12.4 mmol/L Normal 6.0-15.0 [facility] Comment on above: Performed By: #### E SR, TSH3, CK, HS TROP, CMP #### [address] [address] [facility] Anion gap [Moles/Vol] Serum or plasma an ion gap determination 6.0-15.0 [facility] Sodium [Moles/volume] in Ser um or PlasmaOrdered By: Mateo Horne on 06-22-2024 Sodium [Moles/Vol] 140 mmol/L Normal 136-145 [facility] Comment on above: Performed By: #### E SR, TSH3, CK, HS TROP, CMP #### [facility] [address] [place] [id number] [facility] Sodium [Moles/Vol] Sodium [Moles/volume ] in Serum or Plasma 136-145 [facility] Urea nitrogen [Mass/volume] in Serum or PlasmaOrdered By: Mateo Horne on 06-22-2024 Urea nitrogen [Mass/Vol] 45 mg/dL [address] [facility] Comment on above: Performed By: #### E SR, TSH3, CK, HS TROP, CMP #### [facility] [address] Urea nitrogen [Mass/Vol] Urea nitrogen [Mass/volume] in Serum or Plasma [address] WBC Auto (Bld) [#/Vol]Ordere d By: Mateo Horne on 06-22-2024 WBC (Bld) [#/Vol] Leukocytes [#/volume ] in Blood by Automated count High 4.1-10.5 [facility] Basic Metabolic Panelon Anion gap [Moles/Vol] 12.1 mmol/L Normal 6.0-15.0 [facility] Comment on above: Performed By: #### C BC, MG, CMP #### [facility] [address] [place] [address] [place] Calcium [Mass/Vol] 9.2 mg/dL Normal 8.6-10.3 [facility] Comment on above: Performed By: #### C BC, MG, CMP #### [facility] [address] [place] [phone] [place] Chloride [Moles/Vol] 97 mmol/L Low 98-107 [facility] Comment on above: Performed By: #### C BC, MG, CMP #### [facility] [address] CO2 [Moles/Vol] 34.3 mmol/L High 21.0-31.0 [facility] Comment on above: Performed By: #### C BC, MG, CMP #### [facility] [address] [place] [address] [place] Creatinine [Mass/Vol] 1.51 mg/dL High 0.70-1.30 [facility] Comment on above: Performed By: #### C BC, MG, CMP #### [facility] [address] [place] [address] [place] Creatinine Clr Calc Pharmacy 53.97 Normal [facility] Comment on above: Performed By: #### C BC, MG, CMP #### [facility] [address] [place] [address] [place] GFR/1.73 sq M.predicted MDRD (S/P/Bld) [Vol rate/Area] 46.401 mL/min/{1.73_m2} Normal [facility] Comment on above: Performed By: #### C BC, MG, CMP #### [place] [address] [place] Glucose [Mass/Vol] 133 mg/dL High 70-100 [facility] Comment on above: Result Comment: [place] Glucose Reference Range is dependent on time and content of last meal. Glucose of more than 200 mg/dL in a nonstressed, ambulatory subject supports the diagnosis of Diabetes Mellitus. ADA recommended reference range Performed By: #### C BC, MG, CMP #### [facility] [address] Potassium [Moles/Vol] 3.4 mmol/L Low 3.5-5.1 [facility] Comment on above: Performed By: #### C BC, MG, CMP #### [facility] [address] [place] [address] [place] Sodium [Moles/Vol] 140 mmol/L Normal 136-145 [facility] Comment on above: Performed By: #### C BC, MG, CMP #### [address] Urea nitrogen [Mass/Vol] 35 mg/dL High 7-25 [facility] Comment on above: Performed By: #### C BC, MG, CMP #### [address] Complete Blood Count Auto Di ffon 06-21-2024 Basophils (Bld) [#/Vol] 0.0 10*3/uL Normal 0.0-0.2 [facility] Comment on above: Result Comment: PERF ORMED BY: [place] [address] PATHOLOGIST [employer] GINA CARDONA M.D. Performed By: #### C BC, MG, CMP #### [address] Basophils/100 WBC (Bld) 0.2 % Normal . [facility] Comment on above: Performed By: #### C BC, MG, CMP #### [address] Eosinophils (Bld) [#/Vol] 0.0 10*3/uL Normal 0.0-0.45 [facility] Comment on above: Performed By: #### C BC, MG, CMP #### [address] Eosinophils/100 WBC (Bld) 0.0 % Normal . [facility] Comment on above: Performed By: #### C BC, MG, CMP #### [address] Erythrocyte distribution width (RBC) [Ratio] 15.0 % High 12.0-14.8 [facility] Comment on above: Performed By: #### C BC, MG, CMP #### [address] Hematocrit (Bld) [Volume fraction] 40.8 % Normal 38.8-50.0 [facility] Comment on above: Performed By: #### C BC, MG, CMP #### [address] Hemoglobin (Bld) [Mass/Vol] 13.7 g/dL Normal 13.0-17.0 [facility] Comment on above: Performed By: #### C BC, MG, CMP #### [address] Lymphocytes (Bld) [#/Vol] 1.0 10*3/uL Normal 1.00-4.8 [facility] Comment on above: Performed By: #### C BC, MG, CMP #### [address] Lymphocytes/100 WBC (Bld) 8.9 % Normal . [facility] Comment on above: Performed By: #### C BC, MG, CMP #### [address] MCH (RBC) [Entitic mass] 31.0 pg Normal 27.5-35.2 [facility] Comment on above: Performed By: #### C BC, MG, CMP #### [address] MCV (RBC) [Entitic vol] 92.0 fL Normal 83.5-101 [facility] Comment on above: Performed By: #### C BC, MG, CMP #### [address] Mean Corpuscular HGB Conc 33.7 g/dL Normal 32.5-35.6 [facility] Comment on above: Performed By: #### C BC, MG, CMP #### [place] [address] [place] Monocytes (Bld) [#/Vol] 1.1 10*3/uL High 0.0-0.8 [facility] Comment on above: Performed By: #### C BC, MG, CMP #### [place] [address] [place] Monocytes/100 WBC (Bld) 9.1 % Normal . [facility] Comment on above: Performed By: #### C BC, MG, CMP #### [facility] [address] Neutrophils (Bld) [#/Vol] 9.6 10*3/uL High 1.8-7.7 [facility] Comment on above: Performed By: #### C BC, MG, CMP #### [facility] [address] [place] [address] [place] Neutrophils/100 WBC (Bld) 81.8 % Normal . [facility] Comment on above: Performed By: #### C BC, MG, CMP #### [facility] [address] NRBC% 0.1 /100{WBC} Normal 0-0.5 [facility] Comment on above: Performed By: #### C BC, MG, CMP #### [address] Platelet mean volume (Bld) [Entitic vol] 8.4 fL Normal 6.6-10.1 [facility] Comment on above: Performed By: #### C BC, MG, CMP #### [facility] [address] [place] [address] [place] Platelets (Bld) [#/Vol] 199 10*3/uL Normal 150-450 [facility] Comment on above: Performed By: #### C BC, MG, CMP #### [facility] [address] [place] [address] [place] RBC (Bld) [#/Vol] 4.43 10*6/uL Normal 3.90-5.60 [facility] Comment on above: Performed By: #### C BC, MG, CMP #### [facility] [address] [place] [address] [place] WBC (Bld) [#/Vol] 11.8 10*3/uL High 4.1-10.5 [facility] Comment on above: Performed By: #### C BC, MG, CMP #### [address] Magnesiumon 06-21-2024 Magnesium [Mass/Vol] 1.8 mg/dL Low 1.9-2.7 [facility] Comment on above: Result Comment: PERF ORMED BY: [place] [address] PATHOLOGIST [employer] GINA CARDONA M.D. Performed By: #### C BC, MG, CMP #### [address] A1C with Estimated Average G luon 06-20-2024 Glucose [Mass/Vol] 148 mg/dL Normal [facility] Comment on above: Result Comment: PERF ORMED BY: [place] [address] PATHOLOGIST [employer] GINA CARDONA M.D. Performed By: #### C BC, MG, CMP #### [address] Basic Metabolic Panelon 05-23 Anion gap [Moles/Vol] 12.7 mmol/L Normal 6.0-15.0 [facility] Comment on above: Performed By: #### C BC, MG, CMP #### [address] Calcium [Mass/Vol] 9.1 mg/dL Normal 8.6-10.3 [facility] Comment on above: Performed By: #### C BC, MG, CMP #### [address] Chloride [Moles/Vol] 101 mmol/L Normal 98-107 [facility] Comment on above: Performed By: #### C BC, MG, CMP #### [address] CO2 [Moles/Vol] 33.0 mmol/L High 21.0-31.0 [facility] Comment on above: Performed By: #### C BC, MG, CMP #### [address] Creatinine [Mass/Vol] 1.27 mg/dL Normal 0.70-1.30 [facility] Comment on above: Performed By: #### C BC, MG, CMP #### [facility] [address] [place] [address] [place] Creatinine Clr Calc Pharmacy 64.75 Normal [facility] Comment on above: Performed By: #### C BC, MG, CMP #### [facility] [address] [place] [address] [place] GFR/1.73 sq M.predicted MDRD (S/P/Bld) [Vol rate/Area] 57.112 mL/min/{1.73_m2} Normal [facility] Comment on above: Performed By: #### C BC, MG, CMP #### [address] Glucose [Mass/Vol] 140 mg/dL High 70-100 [facility] Comment on above: Result Comment: [place] Glucose Reference Range is dependent on time and content of last meal. Glucose of more than 200 mg/dL in a nonstressed, ambulatory subject supports the diagnosis of Diabetes Mellitus. ADA recommended reference range Performed By: #### C BC, MG, CMP #### [address] Potassium [Moles/Vol] 3.7 mmol/L Normal 3.5-5.1 [facility] Comment on above: Performed By: #### C BC, MG, CMP #### [facility] [address] [place] [address] [place] Sodium [Moles/Vol] 143 mmol/L Normal 136-145 [facility] Comment on above: Performed By: #### C BC, MG, CMP #### [facility] [address] [place] [address] [place] Urea nitrogen [Mass/Vol] 27 mg/dL High 7-25 [facility] Comment on above: Performed By: #### C BC, MG, CMP #### [facility] [address] Blood estimated average gluc ose determination by estimation from glycated hemoglobinOrdered By: Mateo Horne on 06-20-2024 Average glucose Estimated from glycated hemoglobin (Bld) [Mass/Vol] Glucose mean value [Mass/volume] in Blood Estimated from glycated hemoglobin [facility] Complete Blood Count Auto Di ffon 06-20-2024 Basophils (Bld) [#/Vol] 0.1 10*3/uL Normal 0.0-0.2 [facility] Comment on above: Result Comment: PERF ORMED BY: [place] [address] PATHOLOGIST [employer] INST[employer]ER GINA CARDONA M.D. Performed By: #### C BC, MG, CMP #### [address] Basophils/100 WBC (Bld) 1.0 % Normal . [facility] Comment on above: Performed By: #### C BC, MG, CMP #### [facility] [address] [place] [address] [place] Eosinophils (Bld) [#/Vol] 0.0 10*3/uL Normal 0.0-0.45 [facility] Comment on above: Performed By: #### C BC, MG, CMP #### [address] Eosinophils/100 WBC (Bld) 0.0 % Normal . [facility] Comment on above: Performed By: #### C BC, MG, CMP #### [address] Erythrocyte distribution width (RBC) [Ratio] 14.7 % Normal 12.0-14.8 [facility] Comment on above: Performed By: #### C BC, MG, CMP #### [address] Hematocrit (Bld) [Volume fraction] 41.6 % Normal 38.8-50.0 [facility] Comment on above: Performed By: #### C BC, MG, CMP #### [address] Hemoglobin (Bld) [Mass/Vol] 13.9 g/dL Normal 13.0-17.0 [facility] Comment on above: Performed By: #### C BC, MG, CMP #### [address] Lymphocytes (Bld) [#/Vol] 0.7 10*3/uL Low 1.00-4.8 [facility] Comment on above: Performed By: #### C BC, MG, CMP #### [address] Lymphocytes/100 WBC (Bld) 7.1 % Normal . [facility] Comment on above: Performed By: #### C BC, MG, CMP #### [address] MCH (RBC) [Entitic mass] 30.9 pg Normal 27.5-35.2 [facility] Comment on above: Performed By: #### C BC, MG, CMP #### [address] MCV (RBC) [Entitic vol] 92.7 fL Normal 83.5-101 [facility] Comment on above: Performed By: #### C BC, MG, CMP #### [address] Mean Corpuscular HGB Conc 33.4 g/dL Normal 32.5-35.6 [facility] Comment on above: Performed By: #### C BC, MG, CMP #### [address] Monocytes (Bld) [#/Vol] 0.7 10*3/uL Normal 0.0-0.8 [facility] Comment on above: Performed By: #### C BC, MG, CMP #### [place] [address] [place] Monocytes/100 WBC (Bld) 7.2 % Normal . [facility] Comment on above: Performed By: #### C BC, MG, CMP #### [address] Neutrophils (Bld) [#/Vol] 8.0 10*3/uL High 1.8-7.7 [facility] Comment on above: Performed By: #### C BC, MG, CMP #### [place] [address] [place] Neutrophils/100 WBC (Bld) 84.7 % Normal . [facility] Comment on above: Performed By: #### C BC, MG, CMP #### [facility] [address] NRBC% 0.1 /100{WBC} Normal 0-0.5 [facility] Comment on above: Performed By: #### C BC, MG, CMP #### [address] Platelet mean volume (Bld) [Entitic vol] 8.5 fL Normal 6.6-10.1 [facility] Comment on above: Performed By: #### C BC, MG, CMP #### [place] [address] [place] Platelets (Bld) [#/Vol] 196 10*3/uL Normal 150-450 [facility] Comment on above: Performed By: #### C BC, MG, CMP #### [place] [address] [place] RBC (Bld) [#/Vol] 4.49 10*6/uL Normal 3.90-5.60 [facility] Comment on above: Performed By: #### C BC, MG, CMP #### [place] [address] [place] WBC (Bld) [#/Vol] 9.5 10*3/uL Normal 4.1-10.5 [facility] Comment on above: Performed By: #### C BC, MG, CMP #### [address] ECG 12 lead ECGon 06-20-2024 ECG 12 lead ECG [facility] [place] [place] [address] Electrocardiograph Report Signed Patient: Taurus Garcia MR#: [id number] : 1945 Acct:[id number] Age/Sex: 78 / M ADM Date: 06/19/24 Loc: Room: [address] [place] [address] Type: ADM IN Attending Dr: Mateo Horne DO Ordering Provider: Mateo Horne DO Date of Service: 06/20/24 ECG/ECG 12 lead ECG: PVC's Copies to: Test Reason : Blood Pressure : */* mmHG Vent. Rate : 54 BPM Atrial Rate : 54 BPM P-R Int : 156 ms QRS Dur : 90 ms QT Int : 480 ms P-R-T Axes : * 18 30 degrees QTcB Int : 455 ms Sinus bradycardia with premature atrial complexes and PVCs Nonspecific ST abnormality Abnormal ECG When compared with ECG of 19-Jun-2024 09:53, premature ventricular complexes are no longer present aberrant conduction is now present Confirmed by Reji Kumar ([id number]) on 06/20/2024 9:03:28 PM Referred By: Electronically Signed By: Reji Kumar Transcribed By: MUS Signed By Reji Kumar MD 06/20/242102 Normal [facility] ECH echo transthoracicon ECH echo transthoracic [facility] [place] [address] Echocardiogram Signed Patient: Taurus Garcia MR#: [id number] : 1945 Acct:[id number] Age/Sex: 78 / M ADM Date: 06/19/24 Loc: Room: [address] [place] [address] Type: ADM IN Attending Dr: Mateo Horne DO Ordering Provider: Mateo Horne DO Date of Service: 06/19/24 ECH/ECH echo transthoracic: dyspnea Copies to: MD Mateo Schumacher DO Taurus Butler AM Patient Location: : 1945 Gender: Male (MM/DD/YYYY) Age: 78 Years Ordering Physician: Mateo Horne Height: 67.72 in Weight: 317.693 lb Performed By: Bailey Santana BSA: 2.48 m2 BP: 157 / 67 mmHg HR: 75 bpm Reason For Study: dyspnea History: HTN, PE, JAMISON, High cholesterol, Afib + + Interpretation Summary Ejection Fraction = 60-65%. Mild to moderate concentric left ventricular hypertrophy. The left ventricle is mildly dilated. The left ventricular wall motion is normal. Compared to prior study, there is no significant change. Procedure/Quality: The study was technically fair in quality. A two-dimensional transthoracic echocardiogram with color flow, Doppler and injection of contrast agent Definity was performed. Left Ventricle: Mild to moderate concentric left ventricular hypertrophy. The left ventricle is mildly dilated. Ejection Fraction = 60-65%. Indeterminate diastolic function. The left ventricular wall motion is normal. Left Atrium: The left atrium appears normal in size. Right Atrium: The right atrium is not well visualized. Right Ventricle: The right ventricle is not well visualized. Aortic Valve: The aortic valve is normal in structure. No hemodynamically significant valvular aortic stenosis. No aortic regurgitation is present. Mitral Valve: The mitral valve is normal in structure. No significant mitral valve stenosis. There is no mitral regurgitation noted. Tricuspid Valve: The tricuspid valve is normal in structure. No tricuspid regurgitation. Pulmonic Valve: The pulmonic valve is not well visualized. No significant pulmonic regurgitation. Arteries: The aortic root is normal size. Pericardium/Pleura: No pericardial effusion seen. There is no pleural effusion. IVC/Hepatic Veins: The inferior vena cava was not visualized during the exam. MMode/2D Measurements Calculations IVSd (0.7-1.1 cm): 1.58 cm LVIDd (3.7-5.4 cm): 5.6 cm LVPWd (0.7-1.1 cm): 1.50 cm LVIDs (2.3-3.6 cm): 4.0 cm LA dimension (2.3-4.0 cm): 3.0 Ao root diam (2.0-3.2 cm): 3.4 cm cm FS: 28.8 % Ao root area: 9.3 cm2 EDV(Teich): 156.0 ml LVOT diam: 2.02 cm ESV(Teich): 70.6 ml LVOT area: 3.2 cm2 EF(Teich): 54.7 % LAV(MOD-sp2): 59.0 ml LAV(MOD-sp4): 43.8 ml LA A2 area: 22.7 cm2 LA A4 area: 17.6 cm2 LA length (vol): 5.6 cm LA vol: 60.2 ml LA vol index: 24.3 ml/m2 Doppler Measurements Calculations MV E max chadwick: 95.5 cm/sec Ao V2 max: 168.3 cm/sec MV A max chadwick: 93.6 cm/sec Ao max P.3 mmHg MR max chadwick: 172.4 cm/sec Ao mean P.6 mmHg MV dec time: 0.26 sec Ao V2 mean: 119.9 cm/sec MV dec slope: 361.6 cm/sec?? Ao V2 VTI: 44.3 cm E/E' lat: 8.2 LAUREN(I,D): 2.23 cm2 E/E' med: 15.1 LAUREN(V,D): 2.23 cm2 TV max P.0 mmHg LV V1 max: 116.5 cm/sec TR max chadwick: 124.9 cm/sec LV V1 max P.4 mmHg TR max P.2 mmHg LV V1 mean: 78.2 cm/sec LV V1 mean P.9 mmHg LV V1 VTI: 30.7 cm + + + + + -+ + : Electronically : : signed by: Reji : : : : Stacy : : : : on: 06/20/2024, : : : : 1:24 PM : + -+ + Transcribed By: DAPHNEY Performed At: 06/20/24824 Signed By: Reji Kumar MD 06/20/24 6000 Normal [facility] Glucose mean value [Mass/vol ume] in Blood Estimated from glycated hemoglobinOrdered By: Mateo Horne on 06-20-2024 Average glucose Estimated from glycated hemoglobin (Bld) [Mass/Vol] 148 mg/dL [facility] Hemoglobin A1c percentageOrd ered By: Mateo Horne on 06-20-2024 HbA1c (Bld) [Mass fraction] 6.8 % High 4.3-5.6 [facility] Comment on above: Increased risk for d iabetes: 5.7 - 6.4diabetes: >6.4glycemic control for adults with diabetes: <7.0 Result Comment: Incr eased risk for diabetes: 5.7 - 6.4 diabetes: >6.4 glycemic control for adults with diabetes: <7.0 Performed By: #### C BC, MG, CMP #### [address] Hemoglobin A1c/Hemoglobin.to sherrell in BloodOrdered By: Mateo Horne on 06-20-2024 HbA1c (Bld) [Mass fraction] Hemoglobin A1c percentage High 4.3-5.6 [facility] Comment on above: Increased risk for d iabetes: 5.7 - 6.4diabetes: >6.4glycemic control for adults with diabetes: <7.0 Magnesiumon 06-20-2024 Magnesium [Mass/Vol] 1.7 mg/dL Low 1.9-2.7 [facility] Comment on above: Result Comment: PERF ORMED BY: [place] [address] PATHOLOGIST W[employer] INSTALLER GINA CARDONA M.D. Performed By: #### C BC, MG, CMP #### [address] Troponin I High Sensitivityo n 06-20-2024 Troponin I High Sensitivity 8.2 pg/mL Normal 0.0-20.0 [facility] Comment on above: Result Comment: PERF ORMED BY: [place] [address] PATHOLOGIST W[employer] INSTALLER GINA CARDONA M.D. Performed By: #### C BC, MG, CMP #### [address] Troponin I.cardiac [Mass/vol ume] in Serum or Plasma by Detection limit <= 0.01 ng/Ordered By: Mateo Horne on 06-20-2024 Troponin I.cardiac DL <= 0.01 ng/mL [Mass/Vol] 8.2 pg/mL 0.0-20.0 [facility] Troponin I.cardiac DL <= 0.01 ng/mL [Mass/Vol] Troponin I.cardiac [Mass/volume] in Serum or Plasma by Detection limit <= 0.01 ng/ 0.0-20.0 [facility] Alanine aminotransferase [En zymatic activity/volume] in Serum or PlasmaOrdered By: Dg Armendariz on 06-19-2024 ALT [Catalytic activity/Vol] 16 U/L Normal [facility] Comment on above: Performed By: #### E SR, TSH3, CK, HS TROP, CMP #### [place] [id number] [facility] ALT [Catalytic activity/Vol] Alanine aminotransferase [Enzymatic activity/volume] in Serum or Plasma [facility] Albumin [Mass/volume] in Ser um or Plasma by Bromocresol green (BCG) dye binding methoOrdered By: Dg Armendariz on 06-19-2024 Albumin BCG dye [Mass/Vol] 3.8 g/dL 3.5-5.7 [facility] Albumin BCG dye [Mass/Vol] Albumin [Mass/volume] in Serum or Plasma by Bromocresol green (BCG) dye binding metho 3.5-5.7 [facility] Alkaline phosphatase [Enzyma tic activity/volume] in Serum or PlasmaOrdered By: Dg Armendariz on 06-19-2024 ALP [Catalytic activity/Vol] 52 U/L Normal [facility] Comment on above: Performed By: #### E SR, TSH3, CK, HS TROP, CMP #### [address] ALP [Catalytic activity/Vol] Alkaline phosphatase [Enzymatic activity/volume] in Serum or Plasma [facility] Aspartate aminotransferase [ Enzymatic activity/volume] in Serum or PlasmaOrdered By: Dg Armendariz on 06-19-2024 AST [Catalytic activity/Vol] 21 U/L Normal [facility] Comment on above: Performed By: #### E SR, TSH3, CK, HS TROP, CMP #### [facility] [address] [place] [address] AST [Catalytic activity/Vol] Aspartate aminotransferase [Enzymatic activity/volume] in Serum or Plasma [facility] Automated basophil %Ordered By: Dg Armendariz on 06-19-2024 Basophils/100 WBC (Bld) 1.0 % Normal . [facility] Comment on above: Performed By: #### E SR, TSH3, CK, HS TROP, CMP #### [facility] [address] [place] [address] Automated basophil countOrde red By: Dg Armendariz on 06-19-2024 Basophils (Bld) [#/Vol] 0.1 10*3/uL Normal 0.0-0.2 [facility] Comment on above: Result Comment: PERF ORMED BY: [place] [id number] PATHOLOGIST W[employer] INST[employer]ER GINA CARDONA M.D. Performed By: #### E SR, TSH3, CK, HS TROP, CMP #### [address] Automated blood monocyte cou ntOrdered By: Dg Armendariz on 06-19-2024 Monocytes (Bld) [#/Vol] 1.0 10*3/uL High 0.0-0.8 [facility] Comment on above: Performed By: #### E SR, TSH3, CK, HS TROP, CMP #### [address] Automated eosinophil %Ordere d By: Dg Armendariz on 06-19-2024 Eosinophils/100 WBC (Bld) 1.2 % Normal . [facility] Comment on above: Performed By: #### E SR, TSH3, CK, HS TROP, CMP #### [address] Automated eosinophil countOr dered By: Dg Armendariz on 06-19-2024 Eosinophils (Bld) [#/Vol] 0.1 10*3/uL Normal 0.0-0.45 [facility] Comment on above: Performed By: #### E SR, TSH3, CK, HS TROP, CMP #### [address] Automated monocyte %Ordered By: Dg Armendariz on 06-19-2024 Monocytes/100 WBC (Bld) 11.3 % Normal . [facility] Comment on above: Performed By: #### E SR, TSH3, CK, HS TROP, CMP #### [address] Automated neutrophil %Ordere d By: Dg Armendariz on 06-19-2024 Neutrophils/100 WBC (Bld) 59.0 % Normal . [facility] Comment on above: Performed By: #### E SR, TSH3, CK, HS TROP, CMP #### [address] BNP ser/plasOrdered By: José Manuel wenceslao Kavon on 06-19-2024 Natriuretic peptide B (Bld) [Mass/Vol] 114.0 pg/mL High 5-100 [facility] Comment on above: Result Comment: PERF ORMED BY: [place] [address] PATHOLOGIST W[employer] INST[employer]ER GINA CARDONA M.D. Performed By: #### E SR, TSH3, CK, HS TROP, CMP #### [address] Bilirubin.total [Mass/volume ] in Serum or PlasmaOrdered By: Dg Armendariz on 06-19-2024 Bilirubin [Mass/Vol] 0.8 mg/dL Normal 0.3-1.0 [facility] Comment on above: Performed By: #### E SR, TSH3, CK, HS TROP, CMP #### [address] Bilirubin [Mass/Vol] Bilirubin.total [Mass/volume] in Serum or Plasma 0.3-1.0 [facility] Calcium [Mass/volume] in Ser um or PlasmaOrdered By: Dg Armendariz on 06-19-2024 Calcium [Mass/Vol] 9.0 mg/dL Normal 8.6-10.3 [facility] Comment on above: Performed By: #### E SR, TSH3, CK, HS TROP, CMP #### [place] [address] [place] Carbon dioxide, total [Moles /volume] in Serum or PlasmaOrdered By: Dg Armendariz on 06-19-2024 CO2 [Moles/Vol] 29.8 mmol/L Normal 21.0-31.0 [facility] Comment on above: Performed By: #### E SR, TSH3, CK, HS TROP, CMP #### [place] [address] [place] Chloride [Moles/volume] in [place] or PlasmaOrdered By: Dg Armendariz on 06-19-2024 Chloride [Moles/Vol] 106 mmol/L Normal 98-107 [facility] Comment on above: Performed By: #### E SR, TSH3, CK, HS TROP, CMP #### [address] Complete Blood Count Auto Di ffon 06-19-2024 Mean Corpuscular HGB Conc 33.1 g/dL Normal 32.5-35.6 [facility] Comment on above: Performed By: #### E SR, TSH3, CK, HS TROP, CMP #### [address] Monocytes/100 WBC (Bld) 17.50 % Normal 0.00-20.00 [facility] Comment on above: Performed By: #### E SR, TSH3, CK, HS TROP, CMP #### [address] NRBC% 0.1 /100{WBC} Normal 0-0.5 [facility] Comment on above: Performed By: #### E SR, TSH3, CK, HS TROP, CMP #### [address] Comprehensive Metabolic Pane radha 06-19-2024 Albumin [Mass/Vol] 3.8 g/dL Normal 3.5-5.7 [facility] Comment on above: Performed By: #### E SR, TSH3, CK, HS TROP, CMP #### [address] Creatinine Clr Calc Pharmacy 62.88 Normal [facility] Comment on above: Result Comment: PERF ORMED BY: [place] [address] PATHOLOGIST W[employer] INST[employer]ER GINA CARDONA M.D. Performed By: #### E SR, TSH3, CK, HS TROP, CMP #### [address] GFR/1.73 sq M.predicted MDRD (S/P/Bld) [Vol rate/Area] 53.076 mL/min/{1.73_m2} Normal [facility] Comment on above: Performed By: #### E SR, TSH3, CK, HS TROP, CMP #### [facility] [address] [place] [id number] [place] Creatine kinase [Enzymatic a ctivity/volume] in Serum or PlasmaOrdered By: Dg Armendariz on 06-19-2024 CK [Catalytic activity/Vol] 153 U/L Normal [facility] Comment on above: Performed By: #### E SR, TSH3, CK, HS TROP, CMP #### [place] [id number] [place] CK [Catalytic activity/Vol] Creatine kinase [Enzymatic activity/volume] in Serum or Plasma [facility] Creatinine [Mass/volume] in Serum or PlasmaOrdered By: Dg Armendariz on 06-19-2024 Creatinine [Mass/Vol] 1.35 mg/dL High 0.70-1.30 [facility] Comment on above: Performed By: #### E SR, TSH3, CK, HS TROP, CMP #### [place] [id number] [facility] ECG 12 lead ECGon 06-19-2024 ECG 12 lead ECG [facility] Main [place] [address] [place] [address] Electrocardiograph Report Signed Patient: Taurus Garcia MR#: [id number] : 1945 Acct:[id number] Age/Sex: 78 / M ADM Date: 06/19/24 Loc: Room: [address] [place] [address] Type: ADM IN Attending Dr: Mateo Horne DO Ordering Provider: Dg Armendariz DO Date of Service: 06/19/24 ECG/ECG 12 lead ECG: Shortness of Breath/Dyspnea Copies to: Test Reason : Blood Pressure : 136/61 mmHG Vent. Rate : 60 BPM Atrial Rate : 60 BPM P-R Int : 170 ms QRS Dur : 100 ms QT Int : 450 ms P-R-T Axes : 3 24 31 degrees QTcB Int : 450 ms Sinus rhythm with occasional premature ventricular complexes Confirmed by Dg Armendariz DO ([id number]) on 06/19/2024 4:05:38 PM Referred By: Electronically Signed By: Dg Armendariz DO Transcribed By: MUS Signed By Dg Armendariz DO 1605 Normal [facility] Erythrocyte distribution wid th [Ratio] by Automated countOrdered By: Dg Armendariz on 06-19-2024 Erythrocyte distribution width (RBC) [Ratio] 15.2 % High 12.0-14.8 [facility] Comment on above: Performed By: #### E SR, TSH3, CK, HS TROP, CMP #### [address] Erythrocytes [#/volume] in B lood by Automated countOrdered By: Dg Armendariz on 06-19-2024 RBC (Bld) [#/Vol] 4.44 10*6/uL Normal 3.90-5.60 [facility] Comment on above: Performed By: #### E SR, TSH3, CK, HS TROP, CMP #### [address] Globulin Calc (S) [Mass/Vol] Ordered By: Dg Armendariz on 06-19-2024 Globulin (S) [Mass/Vol] Serum globulin measurement by calculation (mass/volume) [facility] Glucose [Mass/volume] in Ser um or PlasmaOrdered By: Dg Armendariz on 06-19-2024 Glucose [Mass/Vol] 107 mg/dL High 70-100 [facility] Comment on above: ADA recommended refe rence rangeRandom Glucose Reference Range is dependent on time and content of last meal. Glucose of more than 200 mg/dL in a nonstressed, ambulatory subject supports the diagnosis of Diabetes Mellitus. Result Comment: [place] om Glucose Reference Range is dependent on time and content of last meal. Glucose of more than 200 mg/dL in a nonstressed, ambulatory subject supports the diagnosis of Diabetes Mellitus. ADA recommended reference range Performed By: #### E SR, TSH3, CK, HS TROP, CMP #### [address] Hematocrit [Volume Fraction] of Blood by Automated countOrdered By: Dg Kramery on 06-19-2024 Hematocrit (Bld) [Volume fraction] 41.5 % Normal 38.8-50.0 [facility] Comment on above: Performed By: #### E SR, TSH3, CK, HS TROP, CMP #### [facility] [address] Hemoglobin [Mass/volume] in BloodOrdered By: Dg Armendariz on 06-19-2024 Hemoglobin (Bld) [Mass/Vol] 13.7 g/dL Normal 13.0-17.0 [facility] Comment on above: Performed By: #### E SR, TSH3, CK, HS TROP, CMP #### [facility] [address] [place] [address] Leukocytes [#/volume] correc blessing for nucleated erythrocytes in Blood by Automated counOrdered By: Dg Armendariz on 06-19-2024 WBC corrected for nucl RBC Auto (Bld) [#/Vol] 8.7 10*3/uL 4.1-10.5 [facility] Leukocytes [#/volume] in Blo od by Automated countOrdered By: Dg Armendariz on 06-19-2024 WBC (Bld) [#/Vol] 8.7 10*3/uL Normal 4.1-10.5 [facility] Comment on above: Performed By: #### E SR, TSH3, CK, HS TROP, CMP #### [facility] [address] [place] [address] [place] Lymphocytes [#/volume] in Bl ood by Automated countOrdered By: Dg Armendariz on 06-19-2024 Lymphocytes (Bld) [#/Vol] 2.4 10*3/uL Normal 1.00-4.8 [facility] Comment on above: Performed By: #### E SR, TSH3, CK, HS TROP, CMP #### [place] [address] [place] Lymphocytes/100 leukocytes i n Blood by Automated countOrdered By: Dg Armendariz on 06-19-2024 Lymphocytes/100 WBC (Bld) 27.5 % Normal . [facility] Comment on above: Performed By: #### E SR, TSH3, CK, HS TROP, CMP #### [facility] [address] MCH [Entitic mass] by Automa blessing countOrdered By: Dg Armendariz on 06-19-2024 MCH (RBC) [Entitic mass] 31.0 pg Normal 27.5-35.2 [facility] Comment on above: Performed By: #### E SR, TSH3, CK, HS TROP, CMP #### [address] MCHC Auto (RBC) [Mass/Vol]Or dered By: Dg Armendariz on 06-19-2024 MCHC (RBC) [Mass/Vol] 33.1 g/dL 32.5-35.6 [facility] MCV [Entitic volume] by Auto mated countOrdered By: Dg Armendariz on 06-19-2024 MCV (RBC) [Entitic vol] 93.6 fL Normal 83.5-101 [facility] Comment on above: Performed By: #### E SR, TSH3, CK, HS TROP, CMP #### [address] Magnesiumon 06-19-2024 Magnesium [Mass/Vol] 1.9 mg/dL Normal 1.9-2.7 [facility] Comment on above: Result Comment: PERF ORMED BY: [place] [address] PATHOLOGIST W[employer] INST[employer]ER GINA CARDONA M.D. Performed By: #### E SR, TSH3, CK, HS TROP, CMP #### [address] Monocyte distribution width [Entitic volume] in Blood by AutomatedOrdered By: Dg Armendariz on 06-19-2024 Monocyte distribution width Auto (Bld) [Entitic vol] 17.50 % 0.00-20.00 [facility] Monocyte distribution width Auto (Bld) [Entitic vol] Monocyte distribution width [Entitic volume] in Blood by Automated 0.00-20.00 [facility] Natriuretic peptide B [Mass/ Vol]Ordered By: Dg Armendariz on 06-19-2024 Natriuretic peptide B (Bld) [Mass/Vol] BNP ser/plas High 5-100 [facility] Neutrophils [#/volume] in Bl ood by Automated countOrdered By: Dg Armendariz on 06-19-2024 Neutrophils (Bld) [#/Vol] 5.1 10*3/uL Normal 1.8-7.7 [facility] Comment on above: Performed By: #### E SR, TSH3, CK, HS TROP, CMP #### [facility] [address] [place] [address] No Panel InformationOrdered By: Dg Armendariz on 06-19-2024 Estimated GFR (CKD-EPI) 53.076 mL/Min [facility] Creatinine Clearance (Chem 62.88 [facility] Nucleated erythrocytes [Pres ence] in Blood by Automated countOrdered By: Dg Armendariz on 06-19-2024 Nucleated RBC Auto Ql (Bld) 0.1 /100{WBC} 0-0.5 [facility] Platelet mean volume [Entiti c volume] in Blood by Automated countOrdered By: Dg Armendariz on 06-19-2024 Platelet mean volume (Bld) [Entitic vol] 8.1 fL Normal 6.6-10.1 [facility] Comment on above: Performed By: #### E SR, TSH3, CK, HS TROP, CMP #### [facility] [address] [place] [address] Platelets [#/volume] in Bloo d by Automated countOrdered By: Dg Armendariz on 06-19-2024 Platelets (Bld) [#/Vol] 200 10*3/uL Normal 150-450 [facility] Comment on above: Performed By: #### E SR, TSH3, CK, HS TROP, CMP #### [facility] [address] [place] [address] Potassium [Moles/volume] in Serum or PlasmaOrdered By: Dg Armendariz on 06-19-2024 Potassium [Moles/Vol] 3.4 mmol/L Low 3.5-5.1 [facility] Comment on above: Performed By: #### E SR, TSH3, CK, HS TROP, CMP #### [facility] [address] [place] [address] Protein [Mass/volume] in Ser um or PlasmaOrdered By: Dg Armendariz on 06-19-2024 Protein [Mass/Vol] 6.5 g/dL Normal 6.4-8.9 [facility] Comment on above: Performed By: #### E SR, TSH3, CK, HS TROP, CMP #### [address] Protein [Mass/Vol] Protein [Mass/volume ] in Serum or Plasma 6.4-8.9 [facility] Serum globulin measurement b y calculation (mass/volume)Ordered By: Dg Armendariz on 06-19-2024 Globulin (S) [Mass/Vol] 2.7 g/dL [facility] Comment on above: Performed By: #### E SR, TSH3, CK, HS TROP, CMP #### [facility] [address] [place] [address] Serum or plasma albumin/glob ulin mass ratioOrdered By: Dg Armendariz on 06-19-2024 Albumin/Globulin [Mass ratio] 1.4 {ratio} [facility] Comment on above: Performed By: #### E SR, TSH3, CK, HS TROP, CMP #### [facility] [address] [place] [address] Albumin/Globulin [Mass ratio] Serum or plasma albumin/globulin mass ratio [facility] Serum or plasma anion gap de terminationOrdered By: Dg Armendariz on 06-19-2024 Anion gap [Moles/Vol] 11.6 mmol/L Normal 6.0-15.0 [facility] Comment on above: Performed By: #### E SR, TSH3, CK, HS TROP, CMP #### [facility] [address] [place] [address] [place] Sodium [Moles/volume] in Ser um or PlasmaOrdered By: Dg Armendariz on 06-19-2024 Sodium [Moles/Vol] 144 mmol/L Normal 136-145 [facility] Comment on above: Performed By: #### E SR, TSH3, CK, HS TROP, CMP #### [address] Troponin I High Sensitivityo n 06-19-2024 Troponin I High Sensitivity 10.5 pg/mL Normal 0.0-20.0 [facility] Comment on above: Result Comment: PERF ORMED BY: [place] [address] PATHOLOGIST [employer] GINA CARDONA M.D. Performed By: #### E SR, TSH3, CK, HS TROP, CMP #### [address] Troponin I.cardiac [Mass/vol ume] in Serum or Plasma by Detection limit <= 0.01 ng/Ordered By: Dg Armendariz on 06-19-2024 Troponin I.cardiac DL <= 0.01 ng/mL [Mass/Vol] 10.5 pg/mL 0.0-20.0 [facility] Urea nitrogen [Mass/volume] in Serum or PlasmaOrdered By: Dg Armendariz on 06-19-2024 Urea nitrogen [Mass/Vol] 32 mg/dL High 7-25 [facility] Comment on above: Performed By: #### E SR, TSH3, CK, HS TROP, CMP #### [place] [id number] [facility] XR chest 1V portableon 06-19 XR chest 1V portable [facility] [place] [address] [place] [address] XRay Report Signed Patient: Taurus Garcia MR#: [id number] : 1945 Acct:[id number] Age/Sex: 78 / M ADM Date: 06/19/24 Loc: ER Room: Type: PRE ER Attending Dr: Copies to: Dg Armendariz DO Ordering Provider: Dg Armendariz DO Date of Service: 06/19/24 XR/XR chest 1V portable: Shortness of Breath/Dyspnea SINGLE VIEW CHEST CLINICAL HISTORY: Shortness of breath, weakness. COMPARISON: Chest 02/12/2024 FINDINGS: Heart appears normal in size. No lung consolidation pneumothorax pleural effusion or free air. Grossly stable mild chronic interstitial changes. XR/XR chest 1V portable IMPRESSION: CHRONIC INTERSTITIAL CHANGES. NO CONSOLIDATION TO SUGGEST PNEUMONIA. Impression dictated by: Silvestre Diallo Jr., D.ORaul06/19/2024 10:01 AM Dictation Location: [place] [address] Transcribed By: [facility] 06/19/24 100 Dictated By: Silvestre Diallo Jr, DO 06/19/24 100 Signed By: 06/19/24 100 Normal [facility] Alanine aminotransferase [En zymatic activity/volume] in Serum or PlasmaOrdered By: Eriberto Rizvi on 02-12-2024 ALT [Catalytic activity/Vol] 22 U/L Normal 7-52 [facility] Comment on above: Performed By: #### E SR, TSH3, CK, HS TROP, CMP #### [facility] [address] [place] [address] [place] Albumin [Mass/volume] in Ser um or Plasma by Bromocresol green (BCG) dye binding methoOrdered By: Eriberto Rizvi on 02-12-2024 Albumin BCG dye [Mass/Vol] 3.6 g/dL 3.5-5.7 [facility] Alkaline phosphatase [Enzyma tic activity/volume] in Serum or PlasmaOrdered By: Eriberto Rizvi on 02-12-2024 ALP [Catalytic activity/Vol] 62 U/L Normal 34-104 [facility] Comment on above: Performed By: #### E SR, TSH3, CK, HS TROP, CMP #### [facility] [address] [place] [address] [place] Aspartate aminotransferase [ Enzymatic activity/volume] in Serum or PlasmaOrdered By: Eriberto Rizvi on 02-12-2024 AST [Catalytic activity/Vol] 20 U/L Normal 13-39 [facility] Comment on above: Performed By: #### E SR, TSH3, CK, HS TROP, CMP #### [address] Automated basophil %Ordered By: Eriberto Rizvi on 02-12-2024 Basophils/100 WBC (Bld) 0.6 % Normal . [facility] Comment on above: Performed By: #### E SR, TSH3, CK, HS TROP, CMP #### [address] Automated basophil countOrde red By: Eriberto Rizvi on 02-12-2024 Basophils (Bld) [#/Vol] 0.1 10*3/uL Normal 0.0-0.2 [facility] Comment on above: Result Comment: PERF ORMED BY: [place] [address] PATHOLOGIST [employer] GINA CARDONA M.D. Performed By: #### E SR, TSH3, CK, HS TROP, CMP #### [address] Automated blood monocyte cou ntOrdered By: Eriberto Rizvi on 02-12-2024 Monocytes (Bld) [#/Vol] 0.5 10*3/uL Normal 0.0-0.8 [facility] Comment on above: Performed By: #### E SR, TSH3, CK, HS TROP, CMP #### [address] Automated eosinophil %Ordere d By: Eriberto Rizvi on 02-12-2024 Eosinophils/100 WBC (Bld) 0.0 % Normal . [facility] Comment on above: Performed By: #### E SR, TSH3, CK, HS TROP, CMP #### [address] Automated eosinophil countOr dered By: Eriberto Rizvi on 02-12-2024 Eosinophils (Bld) [#/Vol] 0.0 10*3/uL Normal 0.0-0.45 [facility] Comment on above: Performed By: #### E SR, TSH3, CK, HS TROP, CMP #### [address] Automated monocyte %Ordered By: Eriberto Rizvi on 02-12-2024 Monocytes/100 WBC (Bld) 5.2 % Normal . [facility] Comment on above: Performed By: #### E SR, TSH3, CK, HS TROP, CMP #### [facility] [address] [place] [address] Automated neutrophil %Ordere d By: Eriberto Rizvi on 02-12-2024 Neutrophils/100 WBC (Bld) 87.8 % Normal . [facility] Comment on above: Performed By: #### E SR, TSH3, CK, HS TROP, CMP #### [address] Bacteria [Presence] in Urine by AutomatedOrdered By: Eriberto Rizvi on 02-12-2024 Bacteria Auto Ql (U) None seen [HPF] None Seen [facility] Bilirubin Test strip Ql (U)O rdered By: Eriberto Rizvi on 02-12-2024 Bilirubin Ql (U) Negative Negative [facility] Bilirubin.total [Mass/volume ] in Serum or PlasmaOrdered By: Eriberto Rizvi on 02-12-2024 Bilirubin [Mass/Vol] 0.8 mg/dL Normal 0.3-1.0 [facility] Comment on above: Performed By: #### E SR, TSH3, CK, HS TROP, CMP #### [address] Blood Cultureon 02-12-2024 Bacteria identified Cx Nom (Bld) NO GROWTH 5 DAYS PERFORMED BY: [place] [address] PATHOLOGIST [employer] GINA CARDONA M.D. Normal [facility] Comment on above: Performed By: #### E SR, TSH3, CK, HS TROP, CMP #### [facility] [address] [place] [address] Bacteria identified Cx Nom (Bld) NO GROWTH 5 DAYS PERFORMED BY: [place] [address] PATHOLOGIST [employer] INST[employer]ER GINA CARDONA M.D. Normal [facility] Comment on above: Performed By: #### E SR, TSH3, CK, HS TROP, CMP #### [facility] [address] Calcium [Mass/volume] in Ser um or PlasmaOrdered By: Eriberto Rizvi on 02-12-2024 Calcium [Mass/Vol] 9.1 mg/dL Normal 8.6-10.3 [facility] Comment on above: Performed By: #### E SR, TSH3, CK, HS TROP, CMP #### [address] Carbon dioxide, total [Moles /volume] in Serum or PlasmaOrdered By: Eriberto Rizvi on 02-12-2024 CO2 [Moles/Vol] 30.7 mmol/L Normal 21.0-31.0 [facility] Comment on above: Performed By: #### E SR, TSH3, CK, HS TROP, CMP #### [address] Chloride [Moles/volume] in [place] or PlasmaOrdered By: Eriberto Rizvi on 02-12-2024 Chloride [Moles/Vol] 113 mmol/L High 98-107 [facility] Comment on above: Performed By: #### E SR, TSH3, CK, HS TROP, CMP #### [address] Color of Urine by AutoOrdere d By: Eriberto Rizvi on 02-12-2024 Color (U) Light-yellow Normal Yellow [facility] Comment on above: Order Comment: Name Collection Type:: Voided Performed By: #### E SR, TSH3, CK, HS TROP, CMP #### [address] Complete Blood Count Auto Di ffon 02-12-2024 Mean Corpuscular HGB Conc 33.2 g/dL Normal 32.5-35.6 [facility] Comment on above: Performed By: #### E SR, TSH3, CK, HS TROP, CMP #### [place] [address] [place] Monocytes/100 WBC (Bld) 20.05 % High 0.00-20.00 [facility] Comment on above: Result Comment: For adults in ED, MDW > 20.0 may be associated with a higher risk of sepsis during the first 12 hrs of hospital admission Performed By: #### E SR, TSH3, CK, HS TROP, CMP #### [address] NRBC% 0.0 /100{WBC} Normal 0-0.5 [facility] Comment on above: Performed By: #### E SR, TSH3, CK, HS TROP, CMP #### [address] Comprehensive Metabolic Pane radha 02-12-2024 Albumin [Mass/Vol] 3.6 g/dL Normal 3.5-5.7 [facility] Comment on above: Performed By: #### E SR, TSH3, CK, HS TROP, CMP #### [address] Anion gap [Moles/Vol] 1.6 mmol/L Low 6.0-15.0 [facility] Comment on above: Performed By: #### E SR, TSH3, CK, HS TROP, CMP #### [address] Creatinine Clr Calc Pharmacy 64.79 Normal [facility] Comment on above: Performed By: #### E SR, TSH3, CK, HS TROP, CMP #### [address] GFR/1.73 sq M.predicted MDRD (S/P/Bld) [Vol rate/Area] 57.657 mL/min/{1.73_m2} Normal [facility] Comment on above: Performed By: #### E SR, TSH3, CK, HS TROP, CMP #### [address] Creatine kinase [Enzymatic a ctivity/volume] in Serum or PlasmaOrdered By: Eriberto Rizvi on 02-12-2024 CK [Catalytic activity/Vol] 113 U/L Normal 30-223 [facility] Comment on above: Performed By: #### E SR, TSH3, CK, HS TROP, CMP #### [address] Creatinine [Mass/volume] in Serum or PlasmaOrdered By: Eriberto Rizvi on 02-12-2024 Creatinine [Mass/Vol] 1.26 mg/dL Normal 0.70-1.30 [facility] Comment on above: Performed By: #### E SR, TSH3, CK, HS TROP, CMP #### [address] Dipstick and Microscopicon 0 02-12-2024 Bacteria,Urine None Seen Normal None Seen [facility] Comment on above: Order Comment: Name Collection Type:: Voided Performed By: #### E SR, TSH3, CK, HS TROP, CMP #### [address] Bilirubin,Urine Negative Normal Negative [facility] Comment on above: Order Comment: Name Collection Type:: Voided Performed By: #### E SR, TSH3, CK, HS TROP, CMP #### [address] Glucose Ql (U) Normal Normal Normal [facility] Comment on above: Order Comment: Name Collection Type:: Voided Performed By: #### E SR, TSH3, CK, HS TROP, CMP #### [address] Hyaline Casts,Urine None Normal 0-8 [facility] Comment on above: Order Comment: Name Collection Type:: Voided Result Comment: PERF ORMED BY: [place] [address] PATHOLOGIST [employer]ER GINA CARDONA M.D. Performed By: #### E SR, TSH3, CK, HS TROP, CMP #### [address] Nitrite,Urine Negative Normal Negative [facility] Comment on above: Order Comment: Name Collection Type:: Voided Performed By: #### E SR, TSH3, CK, HS TROP, CMP #### [address] Occult Blood,Urine Trace High Negative [facility] Comment on above: Order Comment: Name Collection Type:: Voided Result Comment: PERF ORMED BY: [place] [address] PATHOLOGIST [employer] INST[employer]ER GINA CARDONA M.D. Performed By: #### E SR, TSH3, CK, HS TROP, CMP #### [address] Protein,Urine Negative Normal Negative [facility] Comment on above: Order Comment: Name Collection Type:: Voided Performed By: #### E SR, TSH3, CK, HS TROP, CMP #### [address] RBC,Urine 10-19 High 0-4 [facility] Comment on above: Order Comment: Name Collection Type:: Voided Performed By: #### E SR, TSH3, CK, HS TROP, CMP #### [address] Specificy [place],Urine 1.017 Normal 1.001-1.03 0 [facility] Comment on above: Order Comment: Name Collection Type:: Voided Performed By: #### E SR, TSH3, CK, HS TROP, CMP #### [address] Urobilinogen,Urine Normal Normal Normal [facility] Comment on above: Order Comment: Name Collection Type:: Voided Performed By: #### E SR, TSH3, CK, HS TROP, CMP #### [address] WBC,Urine 1-2 Normal 0-4 [facility] Comment on above: Order Comment: Name Collection Type:: Voided Performed By: #### E SR, TSH3, CK, HS TROP, CMP #### [address] ECG 12 lead ECGon 02-12-2024 ECG 12 lead ECG [facility] [place] [address] [place] [address] Electrocardiograph Report Signed Patient: Taurus Garcia MR#: [id number] : 1945 Acct:[id number] Age/Sex: 78 / M ADM Date: 02/12/24 Loc: ER Room: Type: [facility] ER Attending Dr: Ordering Provider: Eriberto Rizvi [...] MUS Signed By Eriberto Rizvi MD 02/12/24 190 Normal [facility] Epithelial cells.squamous [# /area] in Urine sediment by Automated countOrdered By: Eriberto Rizvi on 02-12-2024 Epithelial cells.squamous Auto (Urine sed) [#/Area] N/A [facility] Erythrocyte Sedimentation Ra kimberlee 02-12-2024 ESR (Bld) [Velocity] 13 mm/h Normal 0-19 [facility] Comment on above: Result Comment: PERF ORMED BY: [place] [address] PATHOLOGIST [employer] INST[employer]ER GINA CARDONA M.D. Performed By: #### E SR, TSH3, CK, HS TROP, CMP #### [address] Erythrocyte distribution wid th [Ratio] by Automated countOrdered By: Eriberto Rizvi on 02-12-2024 Erythrocyte distribution width (RBC) [Ratio] 17.0 % High 12.0-14.8 [facility] Comment on above: Performed By: #### E SR, TSH3, CK, HS TROP, CMP #### [facility] [address] Erythrocyte sedimentation ra te by Photometric methodOrdered By: Eriberto Rizvi on 02-12-2024 ESR Photometric method (Bld) [Velocity] 13 mm/hr 0-19 [facility] Erythrocytes [#/area] in Uri ne sediment by Automated countOrdered By: Eriberto Rizvi on 02-12-2024 RBC Auto (Urine sed) [#/Area] 10-19 [HPF] 0-4 [facility] Erythrocytes [#/volume] in B lood by Automated countOrdered By: Eriberto Rizvi on 02-12-2024 RBC (Bld) [#/Vol] 4.58 10*6/uL Normal 3.90-5.60 [facility] Comment on above: Performed By: #### E SR, TSH3, CK, HS TROP, CMP #### [facility] [address] Glucose [Mass/volume] in Ser um or PlasmaOrdered By: Eriberto Rizvi on 02-12-2024 Glucose [Mass/Vol] 133 mg/dL High 70-100 [facility] Comment on above: ADA recommended refe rence rangeRandom Glucose Reference Range is dependent on time and content of last meal. Glucose of more than 200 mg/dL in a nonstressed, ambulatory subject supports the diagnosis of Diabetes Mellitus. Result Comment: [place] om Glucose Reference Range is dependent on time and content of last meal. Glucose of more than 200 mg/dL in a nonstressed, ambulatory subject supports the diagnosis of Diabetes Mellitus. ADA recommended reference range Performed By: #### E SR, TSH3, CK, HS TROP, CMP #### [facility] [address] Glucose [Mass/volume] in Uri ne by Test stripOrdered By: Eriberto Rizvi on 02-12-2024 Glucose Test strip (U) [Mass/Vol] Normal mg/dL Normal [facility] Hematocrit [Volume Fraction] of Blood by Automated countOrdered By: Eriberto Rizvi on 02-12-2024 Hematocrit (Bld) [Volume fraction] 41.3 % Normal 38.8-50.0 [facility] Comment on above: Performed By: #### E SR, TSH3, CK, HS TROP, CMP #### [facility] [address] [place] [address] Hemoglobin Test strip Ql (U) Ordered By: Eriberto Rizvi on 02-12-2024 Hemoglobin Ql (U) Trace Negative [facility] Hemoglobin [Mass/volume] in BloodOrdered By: Eriberto Rizvi on 02-12-2024 Hemoglobin (Bld) [Mass/Vol] 13.7 g/dL Normal 13.0-17.0 [facility] Comment on above: Performed By: #### E SR, TSH3, CK, HS TROP, CMP #### [facility] [address] [place] [address] Hyaline casts [#/area] in Ur ine sediment by Automated countOrdered By: Eriberto Rizvi on 02-12-2024 Hyaline casts Auto (Urine sed) [#/Area] None [LPF] 0-8 [facility] Ketones [Presence] in Urine by Test stripOrdered By: Eriberto Rizvi on 02-12-2024 Ketones Ql (U) Negative Normal Negative [facility] Comment on above: Order Comment: Name Collection Type:: Voided Performed By: #### E SR, TSH3, CK, HS TROP, CMP #### [address] Lactate [Moles/volume] in Se rum or PlasmaOrdered By: Eriberto Rizvi on 02-12-2024 Lactate [Moles/Vol] 1.2 mmol/L Normal 0.5-2.2 [facility] Comment on above: Result Comment: PERF ORMED BY: [place] [address] PATHOLOGIST [employer] INST[employer]ER GINA CARDONA M.D. Performed By: #### E SR, TSH3, CK, HS TROP, CMP #### [address] Leukocyte esterase [Presence ] in Urine by Test stripOrdered By: Eriberto Rizvi on 02-12-2024 Leukocyte esterase Test strip Ql (U) Negative Normal Negative [facility] Comment on above: Order Comment: Name Collection Type:: Voided Performed By: #### E SR, TSH3, CK, HS TROP, CMP #### [facility] [address] [place] [address] Leukocytes [#/area] in Urine sediment by Automated countOrdered By: Eriberto Rizvi on 02-12-2024 WBC Auto (Urine sed) [#/Area] 1-2 [HPF] 0-4 [facility] Leukocytes [#/volume] correc blessing for nucleated erythrocytes in Blood by Automated counOrdered By: Eriberto Rizvi on 02-12-2024 WBC corrected for nucl RBC Auto (Bld) [#/Vol] 10.0 10*3/uL 4.1-10.5 [facility] Leukocytes [#/volume] in Blo od by Automated countOrdered By: Eriberto Rizvi on 02-12-2024 WBC (Bld) [#/Vol] 10.0 10*3/uL Normal 4.1-10.5 [facility] Comment on above: Performed By: #### E SR, TSH3, CK, HS TROP, CMP #### [facility] [address] [place] [address] [place] Lymphocytes [#/volume] in Bl ood by Automated countOrdered By: Eriberto Rizvi on 02-12-2024 Lymphocytes (Bld) [#/Vol] 0.6 10*3/uL Low 1.00-4.8 [facility] Comment on above: Performed By: #### E SR, TSH3, CK, HS TROP, CMP #### [facility] [address] [place] [address] [place] Lymphocytes/100 leukocytes i n Blood by Automated countOrdered By: Eriberto Rizvi on 02-12-2024 Lymphocytes/100 WBC (Bld) 6.4 % Normal . [facility] Comment on above: Performed By: #### E SR, TSH3, CK, HS TROP, CMP #### [facility] [address] [place] [address] [place] MCH [Entitic mass] by Automa blessing countOrdered By: Eriberto Rizvi on 02-12-2024 MCH (RBC) [Entitic mass] 30.0 pg Normal 27.5-35.2 [facility] Comment on above: Performed By: #### E SR, TSH3, CK, HS TROP, CMP #### [facility] [address] [place] [address] MCHC Auto (RBC) [Mass/Vol]Or dered By: Eriberto Rizvi on 02-12-2024 MCHC (RBC) [Mass/Vol] 33.2 g/dL 32.5-35.6 [facility] MCV [Entitic volume] by Auto mated countOrdered By: Eriberto Rizvi on 02-12-2024 MCV (RBC) [Entitic vol] 90.2 fL Normal 83.5-101 [facility] Comment on above: Performed By: #### E SR, TSH3, CK, HS TROP, CMP #### [facility] [address] [place] [address] Monocyte distribution width [Entitic volume] in Blood by AutomatedOrdered By: Eriberto Rizvi on 02-12-2024 Monocyte distribution width Auto (Bld) [Entitic vol] 20.05 % 0.00-20.00 [facility] Comment on above: For adults in ED, MD W > 20.0 may be associated with a higher risk of sepsis during the first 12 hrs of hospital admission Neutrophils [#/volume] in Bl ood by Automated countOrdered By: Eriberto Rizvi on 02-12-2024 Neutrophils (Bld) [#/Vol] 8.8 10*3/uL High 1.8-7.7 [facility] Comment on above: Performed By: #### E SR, TSH3, CK, HS TROP, CMP #### [facility] [address] [place] [address] Nitrite Test strip Ql (U)Ord ered By: Eriberto Rizvi on 02-12-2024 Nitrite Ql (U) Negative Negative [facility] No Panel InformationOrdered By: Eriberto Rizvi on 02-12-2024 Estimated GFR (CKD-EPI) 57.657 mL/Min [facility] Creatinine Clearance (Chem 64.79 [facility] Nucleated erythrocytes [Pres ence] in Blood by Automated countOrdered By: Eriberto Rizvi on 02-12-2024 Nucleated RBC Auto Ql (Bld) 0.0 /100{WBC} 0-0.5 [facility] Platelet mean volume [Entiti c volume] in Blood by Automated countOrdered By: Eriberto Rizvi on 02-12-2024 Platelet mean volume (Bld) [Entitic vol] 8.3 fL Normal 6.6-10.1 [facility] Comment on above: Performed By: #### E SR, TSH3, CK, HS TROP, CMP #### [facility] [address] Platelets [#/volume] in Bloo d by Automated countOrdered By: Eriberto Rizvi on 02-12-2024 Platelets (Bld) [#/Vol] 155 10*3/uL Normal 150-450 [facility] Comment on above: Performed By: #### E SR, TSH3, CK, HS TROP, CMP #### [facility] [address] [place] [address] Potassium [Moles/volume] in Serum or PlasmaOrdered By: Eriberto Rizvi on 02-12-2024 Potassium [Moles/Vol] 4.1 mmol/L Normal 3.5-5.1 [facility] Comment on above: Performed By: #### E SR, TSH3, CK, HS TROP, CMP #### [address] Protein Test strip (U) [Mass /Vol]Ordered By: Eriberto Rizvi on 02-12-2024 Protein (U) [Mass/Vol] Negative Negative [facility] Protein [Mass/volume] in Ser um or PlasmaOrdered By: Eriberto Rizvi on 02-12-2024 Protein [Mass/Vol] 6.0 g/dL Low 6.4-8.9 [facility] Comment on above: Performed By: #### E SR, TSH3, CK, HS TROP, CMP #### [address] Serum globulin measurement b y calculation (mass/volume)Ordered By: Eriberto Rizvi on 02-12-2024 Globulin (S) [Mass/Vol] 2.4 g/dL Normal [facility] Comment on above: Performed By: #### E SR, TSH3, CK, HS TROP, CMP #### [facility] [address] [place] [address] Serum or plasma albumin/glob ulin mass ratioOrdered By: Eriberto Rizvi on 02-12-2024 Albumin/Globulin [Mass ratio] 1.5 {ratio} Normal [facility] Comment on above: Performed By: #### E SR, TSH3, CK, HS TROP, CMP #### [address] Serum or plasma anion gap de terminationOrdered By: Eriberto Rizvi on 02-12-2024 Anion gap [Moles/Vol] -1.6000 mmol/L 6.0-15.0 [facility] Sodium [Moles/volume] in Ser um or PlasmaOrdered By: Eriberto Rizvi on 02-12-2024 Sodium [Moles/Vol] 138 mmol/L Normal 136-145 [facility] Comment on above: Performed By: #### E SR, TSH3, CK, HS TROP, CMP #### [address] Specific gravity Test strip (U) [Rel density]Ordered By: Eriberto Rizvi on 02-12-2024 Specific gravity (U) [Rel density] 1.017 1.001-1.03 0 [facility] Thyrotropin [Units/volume] i n Serum or PlasmaOrdered By: Eriberto Rizvi on 02-12-2024 TSH Qn 1.22 m[IU]/L Normal 0.45-5.33 [facility] Comment on above: Result Comment: PERF ORMED BY: [place] [address] PATHOLOGIST [employer] GINA CARDONA M.D. Performed By: #### E SR, TSH3, CK, HS TROP, CMP #### [address] Troponin I High Sensitivityo n 02-12-2024 Troponin I High Sensitivity 7.6 pg/mL Normal 0.0-20.0 [facility] Comment on above: Result Comment: PERF ORMED BY: [place] [address] PATHOLOGIST [employer] INST[employer]ER GINA CARDONA M.D. Performed By: #### E SR, TSH3, CK, HS TROP, CMP #### [address] Troponin I.cardiac [Mass/vol ume] in Serum or Plasma by Detection limit <= 0.01 ng/Ordered By: Eriberto Rizvi on 02-12-2024 Troponin I.cardiac DL <= 0.01 ng/mL [Mass/Vol] 7.6 pg/mL 0.0-20.0 [facility] Urea nitrogen [Mass/volume] in Serum or PlasmaOrdered By: Eriberto Rizvi on 02-12-2024 Urea nitrogen [Mass/Vol] 30 mg/dL High 03-14 [facility] Comment on above: Performed By: #### E SR, TSH3, CK, HS TROP, CMP #### [address] Urine appearanceOrdered By: Eriberto Rizvi on 02-12-2024 Appearance (U) Clear Normal Clear [facility] Comment on above: Order Comment: Name Collection Type:: Voided Performed By: #### E SR, TSH3, CK, HS TROP, CMP #### [address] Urobilinogen Test strip (U) [Mass/Vol]Ordered By: Eriberto Rizvi on 02-12-2024 Urobilinogen (U) [Mass/Vol] Normal mg/dL Normal [facility] XR chest 1V portableon 02-11 XR chest 1V portable [facility] [place] [address] XRay Report Signed Patient: Taurus Garcia MR#: [id number] : 1945 Acct:[id number] Age/Sex: 78 / M ADM Date: 02/12/24 Loc: ER Room: Type: [facility] ER Attending Dr: Copies to: Eriberto Rizvi [...] Aaron Mock M.D.02/12/2024 3:21 PM Dictation Location: [place] [address] Transcribed By: [facility] 02/12/24 1521 Dictated By: Aaron Mock DO 02/12/24 1518 Signed By: 02/12/24 1521 Normal [facility] pH of Urine by Test stripOrd ered By: Eriberto Rizvi on 02-12-2024 pH (U) 6.0 [pH] Normal 5.0-9.0 [facility] Comment on above: Order Comment: Name Collection Type:: Voided Performed By: #### E SR, TSH3, CK, HS TROP, CMP #### [facility] [address] [place] [address] XR HIP 2 OR 3 VW RIGHTon XR HIP 2 OR 3 VW RIGHT EXAMINATION: RIGH T HIP CLINICAL HISTORY: Pain. No history of trauma reported COMPARISON: None FINDINGS: 4 views are submitted. Examination limited by patient body habitus. The abltm-dr-[id number] there is multilevel degenerative change visualized lower [...] Coding Summaryon 10-16-2023 Coding Summary HTMLBase 64 BsucangwGVg1pUd+PGhlYWQ+PE 2TWLBhR88uwXJakS0dF2NKENiV GoduVLIPHQgFDvByqoBwKA4jkP NjZXJu IC8+BB4kJKEiKxzmhETfe6Q8qT M6E12dkz7hBBnilUS4RGWdBoUv vxrsq2abnPy8LWgpOttdNtJq LVDgaN60UNA2sX90Nw01yEGelV Vss0fifYt4OeUgYWGbKFS8jVle GSqtq9XiGWGyL78isKVfp8N8 APOunAyxmNTdObQxpOU7mD1uRH fkgqbet1dcpxszYfu5zx22iNXu j5E8bBB0U5RualT6TAQwwPOh SokhpCJVnH7nmxxri5xpnsssUo UuHHFvBBq3JGr1HUWxkZzsGjOo CA53BQX6XRZfvcFcF1WpOOYu yAqqQqC1i8J6Yd9FD2ELHfywF8 VNTUFSWTwvdGQ+HI42kx80B8Em PcuxLkq0DOKlQRG3sHU8uI3n RXZlZXvml2V6oMQ5A8ZwwuAqrf 6vj7yzBAUgHKhzF55rcQLya8Y1 OFRlsNA4PRIpaYlvKiZdeY85 Oyc+SZWxhSecu7UwQqovn9uto2 yhcUg3ZyngHABbkvEndSxtMHL9 d0OiBp1gMWOagUZ1hBJ9sL6a DjVfRqI1CAzwA283SsQyuMLqEl myS11vM3SprOY+YSDpXtj6IFMi qZnuST7jT5YmJXRxbomkjGVj dRriUN9pSLXfchfvXTBlsR9nWJ KkQ9r7AfKfHdC5WSyxX1VkAZEe yfcgJs78iH6xSgLoQcQ4PMaa W4NfefT6ZIEioCKqKGokXVI3V9 2fd5B6KWQyWANoCJU6rRB9aQ5x bGlnbjogbGVmdDsgdmVydGlj ARvlTEfcR077DYQkkBycDeUpNN luZyBEYXRlOiAgMDIvMjYvMjAy NDwvdGQ+IIRvWHN3gVhbRXGn fJUrNWuuPb5bkIkrbGnmJC4uMA NahfoyAZXnvO1zPHCkgFKsoGwx HP2oVVTgwyucb728DfGsFZX6 IMNhfMPqC6EqaW8sOwAlHAYqMK TfA2ZscSFoHMamZ066WFijDcT3 KXAhjbGwG8YhXJAnnSbnPxG4 j0G2Jd4Jr5EqrdgyQ0DrnZGnNr IdQqgrTKg1T2UiZhjwpGS+PC90 UZUeVX31YTa2NWN6wJiyECpl MGDqE2NoiS1rUdEzBDRpEDUqUo c+PHRhYmxlIHdpZHRoPScxMDAl GaBkcBsvJS8sKv7nQXIbBZLl vHhafGNfSuMid2piDNFcJXwsZO 8hrJsrR6NozAD0DFFbn8d8Og72 P31zV8UfmKP+QUHtoPN6dLR9 gZ3xSmYtRhE7GMeoK185UjNxqU AwCgyjt1mvm2bifIr4SbE3UPEh nbGtsOdmLBY0k6XmYq84M67t IHdpZHRoPSIxNSUiIHZhbGlnbj 5omH4xEy8+BDTiuUP0lJI7pV4x AlSePyK7QKoeN635FoFkjDEf Rhqaj2aia0cljSb5OqBcREZgik JclUgsVUK7c6JwKx81C1WjqYsu g7TlWma3yv72nKBqu1D5xHC5 Y9KsTNWwkzsumNCmbRfbMN0gGH IiqrfzFJUnxM0dHBOnU4m5EcMr VoL7KVhlK1QwsyP3ALCjtGWe JOJyrTRHqU7tsontw7zwfyjxFs OmCIRlKDz2HRg7YXKjjLvzXtPe QWT0MhE2YPI9iXQclR2blZco jqjijI8sYlf+FIZ7uIOxcXCKQY 1lOjwvdGQ+AGPqEWD1kPesEYzx CZPnvO5aZUUtP6j6CkMyJxS7 RTzxY3ThydC4PODccVVrRAMzvD BEyJ3fuibwe5cafnupSmKwDXSe MNn9FHs6XNXuiEuuEfQnGVV3 MgD7QCX0tEBrgQ1ejNqborzsrU 9wOyc+EqtmpBowXNP0MBy2E6Kr Hag7GFIpjRcyGO6vrWWvJGhl Lp3tiSjosUkpUK1tHERfriukk4 40NzGqo6xfCXJovQIvPOekXVE3 R35in4F1CAUvFFZfQZO4aBR8 iL5ibBcrkfusrLYukScjipAgwR lnGVwaILfeW990ZAFidGvcQiPu OWz5Q6DeZkg4QVYteZbqZD9l pLGyEYhtOs6sbZosaYemHF7aYY Npqheov994FcSbf8msNOMnwEDa PDepKDR3D15yl5I1WSSdMTKh CBS1kXY1rS9keVfldmllzMQodF wnyqDasSxgSAisDZtbQ092AWCb vXzzZiEotAo2E5BsIbq4TWAl pSqpKS9opORsVQipBw4hlXygjX osUL8eNBCrdxcny323CtIwk0df SVVogZRjXComMHD0K82ui7B0 KODcHHJnCNB3iNG8kB1jgLaqzm ogbGVmdDsgdmVydGljYWwtYWxp F547WRZdpEgfOxWilUdoxsKj VVvtWAp4B7KxOoclnXJ+PC90YW CqKR40eSQdyOLzy2wlmDu5SaXr VTNfICF5eZfnATqok6KpANRw W88ubWRfv4D4DPXqfQiwfSGfYj WbnHC3zO6bFPxlgspyw1kofecj Cuccc8fsvd55hV17E53tTYyq DXVnOWRkOCTwHOFwnDxamf5kxG 9wIi8+EZZycNY8fRI4xI0kHPXk UgN6RMaoV978ZrIihIZiGtks j3taf0zswEe2MeG1NCBbjbAqiT kvFJC5z1DzYr38I49gODriNVZz CGEuKPLdWFCyjOjysd1lfL9n Ii8+LABjxSC4hLD7kI9zHfQiMi Q3IXyqH200YfSzbDZeIbumP75j G0PrsVM+MUMeXpo5DHBofSvi ZQ4uzUAhBXhaEo7kIFG8EqVaIv LaRRnlH6JuWPNrkpmuqlhjhTM6 LVXiQHOjtF14Mi6auMaiICXv yTGWoC7igehfq3oxyyvhXhOqKJ WyCSp3NAp2BFLgvJdeZqUfXTJ7 UyO9GQL7xXMocK3waOxtnmlc nT5iK6BgVTGdtvbvDh58nG3zMk NjTyS8JMeyDli+VEhPTUFTLCBD YMJIYXZZRPK7K9WyGbg1MGSn pMglCO6heOMuWVkcUn9ndOrjiL whJR7nXWVxqogoLHEozG1mRHHb lWXksJwwEA8yTAXqzbpep116 UdXzSZH9CZBtpTWxT3NnaU0zFd GdDSBbKWVpR4YkfNNpWIsbB671 OEvlCaT2UJPlosEiZ0UiNSAb oBoySqZ2k2I4Pv8eNd3fQz1lYD E8CY01PL23eYVqw7K9xFK9N7Ol SGNpzawtrfcdrFN3PKAjAGEo uP60aNStLFneNt9wu7K2i495OU DeSQWjqX31Eo1rsGbfVVSdlEXO nN7sixagg0tgvrceKeXrIXKw DXw9ALw4EJHcfEtyHxPwNRB5Zw O5YZC7pNKedX3atUlsdohkwI6y Oyc+EXDpNHYbzkM0Z9KfMtc9 YBJkbEjsCD7tvTLhIZifWl7avW ziiSbzRY4jIRBzakgbXRNmvC3y GGYkqITqdCxvCK9pVMPplbxj t242ZiWbQAE8YHMnnDObX3NurF 8lQiZgRJNgBBJaG6WkyYFfICoc O351KQolUzB2VDBqqtQtC6Ms TJJddVqxOuE4q6P5Sc7ZCApNMM 01XD69zLDmv2K8uMO0T8MlSBXv wtzfzpexaTL3VZQxOFJrpG59 bAKyJXusYz4wq7Y2d534DAXuAJ JxvO57Ym3ziDldQVKzlSLMlR0s mqomq6ztwjdoLrLxNLDjWZk6 CFu0MJJcwNjeRaAiHFD2IkW3ID Q6lJUdkE8txWtcxenfpO0eIio+ U8G3S5GdBzfmwFG+DX01GFOl VO76fTMfnMMja8lbqOa5MdIeAC GmYWA6kPncQYpnw7MtNNTdH94m uFWwj1H6IHYipNdctBJvQwDj fXL0jB6kIPivakidn5pygvgwQt swn9ajlq94rA63U34lBYhvPRVv GYZcXSNwYNRjbBooex6ilO1q Ii8+KMLuqFW1bFN1eF0qMlYcHk B9RUugT474GfRfnPAhYswnl3iu a1kxdJe3ZcOqMUZmazBdgLto TVB5g2WuHn31J21fWWseMNEyAR GtGZUyAXPrfVfcnm1lsU5nZb4+ NC6bt8ywvj18zN28bII+PHRk CTF6hQmyOIduUQOwcD5tVZcsSp G2ENWhFkQzoE09mERbKNwcJu5f eFamkRoeUM4uSCWlpoijv513 UrOnh4uzBCFqbJNkBKevTTO8E2 6xh4E7AYOrVULiAMO1oIO8vP9v bGlnbjogbGVmdDsgdmVydGlj WAkcARsrS032LKPavWdsWyBikC OzC5bmgnDPME9xStytaMV+PHRk VLD6vWpfQHddCDQrcD8gOYXk I6n5AhYhKoJ1LFdnO4BrjeK0WS BqoCZkLHVyiBBRmO5nisdsr4pv wlajFdIgEVMbFDn3MSk2QMDq xZjoAiKsGKX1ToN4BPI4fMPbhO 1xkZxgepzlaX7gRqq+RklOOjwv dGQ+EJNcEDS6xSruVVwkJTBz qH3oCDGvH8h3KzEsZpE7MGrnB9 BjipC4WNEvvERrEIQtbYDUvB5z hgpby3pppcxsFjRnARBcVJn4 MUz9GAIdxInuIrEcHRD5LgH4NU G4wBLneJ6atMibsudwtM3kBjd+ TVJOOjwvdGQ+HLWvUCX7pVov BBuzYLDbeF5fQTAlO3n0LkTtZe W0GOinE8EylhN6JFQvnMQnDBPd nIPSmU9jnyuiz0ctwvigFzVh UCDuRBg6GSp7FTDgzQdhPvHbFW E4LiH4TME4qCSmoV2zaRyysldo gT2dBss+MMS3STS3NL89QZ08 D5OmXybqhOWzsFY+PHRhYmxlIH cuUAAhUQyjJIBjAoLqoNywSP6r Et7jGELyQWXioOctzDPoNqBd b2x (more content not included)... Normal [facility] Consent Formson 10-12-2023 Consent Forms [id number] [facility] BUN/Creat Ratioon 10-11-2023 eGFR Non AA 53 mL/min/1.73m2 Invalid Interpretation Code [facility] Comment on above: Performed By: #### 1 [id number] #### [facility] (DEFAULT) [address] [place] [address] eGFR AA >60 Invalid Interpretation Code [facility] Comment on above: Performed By: #### 1 [id number] #### [facility] (DEFAULT) [address] [place] [address]23 Creatinine [Mass/Vol] 1.31 mg/dL High 0.90-1.30 [facility] Comment on above: Performed By: #### 1 [id number] #### [facility] (DEFAULT) [address] [place] [address] 91835 Urea nitrogen [Mass/Vol] 25 mg/dL Normal 8-26 [facility] Comment on above: Performed By: #### 1 [id number] #### [facility] (DEFAULT) [address] [place] [address] 05243 Urea nitrogen/Creatinine [Mass ratio] 19.0 mg/mg High 4.6-16.2 [facility] Comment on above: Performed By: #### 1 [id number] #### [facility] (DEFAULT) [address] [place] [address] Urogramon 10-11-2023 CT Urogram EXAMINATION: CT [...] Jassi Atkinson MD 10/13/23 1:26 pm Technologist: [facility] Provider Orderson 10-03-2023 Provider Orders [id number] [facility] - AP Resultson Lab - AP Results [id number]#[id number] [facility] Coding Summaryon 09-26-2023 Coding Summary HTMLBase 64 QpfqmjyzEHz3yTp+PGhlYWQ+PE 7PHJRmV43auHCpmU5sG6XGPZzG JvwyFCSUZRuJOuLsfqEpAA2emY NjZXJu IC8+LT8kFVQlDzzugQTut0V3aD V1Z22cyp4uKQdcoDN5NDBzVuZu axvgm3bbrMo4WMhoQjklWsJg XQTtkJ98BEC5zD74Jt54wMKkeS Fif0whfXu3ZfAdCNSzSWX6oTsz RIsqs5WvCDNiT82njJBdx4Q2 GPMkgGkolFIeCyHavCM6eJ1vGU wyyanik6xlutbsHhn1yi30xERb y6C5bNQ0O2JwtjM5IQKvsXFb SczomINGgE3ypydkp9yqszkwSl QdJHPiFXw5RBr9VGNnsBqjDsNg SY63HCJ6JFDwluMvA5EvUYFr eRoaSrT9i4V1Vu4TG9ESBwvcB8 VNTUFSWTwvdGQ+NZ37ed92V7Mm QwjpGbx0LLVpCIR3eVJ7iH4j MTDsLQrcd3M7zEV4J5WtvrEnne 3sd3ykKPNeAWjoE14ahSCww7L1 DGSahRE5OVJffXfyNrEovD81 Oyc+MGJigYoyi9TrObhkv1smc5 mtzFw5IskkIHEpdjTqzFzmFRY7 m5SiZf2xKIXeeXK2fHP8gJ4m QsYlRsB9PUatS093OtKihJLqAs txQ27eF4UmsSF+XUAsQwd7OLCz xNfxNC4uW7EdLOPquoqjxRJq hKojJS7oKXGzannqBGEqkT9bHA JiJ2n1KeZcTtF0IUcpW9RwNUPv bznhJw21pF2zTjGrAnX0LJta J1EsomQ5VXBdtBEwCLyhXLB5E1 4zg3F5UJFyUHYzJZN0eRK8mK1f bGlnbjogbGVmdDsgdmVydGlj JEktHBbbA050KYHpnCztGiPgIQ luZyBEYXRlOiAgMDIvMDYvMjAy NDwvdGQ+CULsDNW2dTctBLEi bXWiMSdlYc3xoMtxnHafOI8dKB CdscqqOSRliW4mQEYhgZWpvSqg SA5qXUAxswwlg609EgWjSPE1 LSLbcFWtW2BxmL1fGlIeRBNbXU IbW9XdhNKoFUsqP758MLfuDnM6 NRDzdvRcR2HeSUOefEsbWnQ6 n1F3Rt1Ri4PlqgumQ7RkeNUfSb LlWtdgHKq7E3WhTijeiHG+PC90 NROrSZ19NHf7JRF8tXbvIXvf JXTvW5JfpU0pAuYtYDFjKILjKq c+PHRhYmxlIHdpZHRoPScxMDAl FzPfmPrbNG3hXm7oRXGqLEWx yVziwXPfLwQxk7zhLFXxCRskTZ 2xtHsmG6HzqEY4JGUpj2l7Wo23 G54iV6FrpLN+DVTtmHN4wEV1 dE2mSuGvWeJ3EVydH964SmEofD GtUfpzg3dtw3ccbRt6CyD6OHDt vcXitNfbIPZ5f5HiPg02L91a IHdpZHRoPSIxNSUiIHZhbGlnbj 8zbV0mJs2+TIGiuKY9aDO4oR8d NyEvOtT2XKztK162ZrAtzSOb Kqztx5rak4accYe5KsAoKJNokl QgdDcxBKL4u1KkWk90X4OfnQxp g8FyWph8bc82iSNgz7U8bMW6 Y0YtKWWwxnchbJKsvYzbMG0bWW JnzdlkYXFcpQ5cXUSiH1i0EwPr QmW4AFxnM7QbsjT7FWNcnPCi GZEmtZFViX2zzoxqp2fwkceyVl UfJLDpVMm9YRu2VBKkvKfmHnYs NRQ6IpN1KWU4yABapH6bcEcq bxuukV1bOjz+IGJ9sAGdvEKDOL 1lOjwvdGQ+JBAlXYX1nAydMJaj ZIJikI3aSJTvR7y6GhKcLbS7 FCgeC9JhydM9ADJxlIClOIGgsV KFcT6vufrkw8dbkiniJxVfLTMj QIu3NOv4MVMohBcpEcRbFVM8 BrE3GPU3fUVyrG8neUrglepqwK 9wOyc+ZqveaMlqJVW4IZw5A6Gn Lmq8HFZvvOdqVR0biKEkQWyk Lv6ijQztoNseZX8oMQFtrtjpj5 31ClKuz2nwHAOenFNsAQckNDI4 D44jb3T6DYJdTKKoJDQ9vYG4 aW1riAdeuayhjECaiEtxkrIzaC qiJCkpNSoyF971UNTepXwjXgYh QTb7N8HuDrg0OEQfnQmoCZ9x wHZrAJobUo2ioYkbqRrnGI0oHE Vlphqap209BfKkl1yvLZWldUMi NJwiFNC3P33ya5J9QSDdINBy IJP6cYM4gX4uiLjweymweDOrgH nnrxFurFqaSGbdBEbeJ406POGg wGdxXbTcyRm8K9OpKpo2JWJd dWodBJ6tyMVbNDbmLw2mwOxxwO sjXI0hKSMyprrrs729TvUkf3uy RFMolBIfNPsrTZG3Z76ng3O5 QJFsKTToFHT8bUA5oW5sqZlshh ogbGVmdDsgdmVydGljYWwtYWxp Z065QPQicAitMtUzgDpvscLb IMypDEk5S4OhXljreJQ+PC90YW KbKQ55kFCzbYWnr8vpkDs0SaTo TJPeRSD9uItvESvxe4ScUNWp G60stYZrt0M4OGFmeFskzJIiIf VleTS7yH5gGGfoebyhe7gkvtts Vbhgi4diuc48mW65V95rSYyb JJLzXUPsZTHfUSDbuCbqda8tgC 9wIi8+RITyoNS6cRH5aZ6aFIUw DeP2ZYlsY144HyDqfQWrAlyu r9ayo0bksGp9GvO0UKLfrqNpaB xqDIQ7z5LaCy43G10lKYrhGUNb BKAmCXMaOYLmiAaefz8bsA4a Ii8+TBVfpQP3lUD6oJ5yOgTlYk Y8NYuqC935UrTzvNOiOlqbH52n H6QyjZX+TIJdYya6BGTnzGkm LZ1itGHuFFgoPr0qKMA8NwWyLg JmIRgbM9AhAHJwwdayoxiwgRK1 ZKZxYGIugK15Va5ufYlvWRBp lEPUdQ9mrujwg5sxvarmCcXxJM LuHXa3QNu7QJCfoKgcDbWeZWG9 UhF9NMR0dRWnvG7jdIrjrgrn yC5zH1UaXOGxjysrNq58rQ8pEn NuNfI6AHvbWwu+VEhPTUFTLCBD OIQPEIFSDJU6F4XqAbt8QRQj yUzaVD5xrRJqMBojAj6isElhrL opLW2aKCBveujdTTPuyI0oDUHi iBTavTydNT8xSAUfclllq008 WqKoJZK9QKQvuLPiE1UfoZ0xFj BySWVzVESoS1AwaTMqDIbsS523 LFnrNrE3EIQvooNsY0DuPHEt nNrfAmB7g5Q0Mr1uAr5oCr4zYS N1TC41ZM33qSHzf9E2hBX1U1Vt ZUMaavctedcwdLK3EONlGJAy kA65fDVnHWsrUx1sh0B0x932LF FhZJPsgU24No7cpTjyRJGimTYA iC9irhspu8fqxtvhPlRvGFEu NPk7YBf5VEFqcZlpYkLfJES9Eu L9JOE6mDNnkH3dwAwdpyjjiW4l Oyc+EMTpYWVwspR8V6EtReb9 FOTutWueET7fdRHvVEytYe8uiV lxwBemVH1pKERakprvIKTzuH4z CLLeqEDujKuoQT9xHORjuuaj i227TmCwRNA8WJBnuIVkK6KemX 1uVvAjWFKyXRNuA8JxoEDtHRfe U395VDwjEqS8KUGhtmOmS5Gn PWMlhEtbWvI9m6Q0Rs7PWNiMZI 77HJ96vDIbr1A9lWB3B7CoDVDj ckoivvnobYP8JRZvGFDaqO91 kJWsJYzuOk1cy3L0m876YHMwWG FhgN79Tf4quTolEIIklPHAmD4x ixipi0lpkgcmPiWdWUZvHHk5 QQp0TKPnbKviFqYtBDF3TzE6WC Y3cTXxzP5gyHxcwldqlM2bCek+ UXG5UZN8hyksgqf6Q5GqFrjg dHI+OA84PRLxCJ53dIHpfGMbs2 esjSz0UuIhFVStMNY1uZycFKdf d8JvCWLgK34kqISmt8X9SECx xJrliYRaReEfnRR0vV7tYEhdxc riv2abliaiXlwnz9ehan47eN51 H32lGWbdWBHrJXLxEBFbUNNj tYsnrx0imZ1kHg4+FUZkbTT7mO P5iK8lMnWdVsP4QRivH216HdYf fMZbTview0rnb8wllLj5PuRu OTVictFexPkpWFT8q6GkQm80Z9 9sIHdpZHRoPSIyMCUiIHZhbGln za1uiK8aVx3+LQ4qp0kumk19 qQ72xYA+WRLnLOA7fPjtIGzrGS WhyM6pAOyqLwS1UEVxRnMxlX70 cGTyMFzuPe4hwZujiPdlYJ7s WHWyxxsti810JvAib2ltUXJwsK BsIUffFBU6H38pk8L4JROiJOCv QZL9kAB9aR7jqRqwmwpnaYBb nNwrzmVqbVauVLikNFujO607CQ PllWzbPsHoaCZnW9xfldVJUH6q OjwvdGQ+CPWpHOO9cFpuIAaw CNRueF6aURHdI9e3JrJuOjV8PD itN3CdlvA1LZQivTStQOHitWWP qO0jijckl7jjluduSqWkRNBb IDg3OZd9BSMvfMuvOlLuPOK3Or N2IYB4aSBgzJ2vnZcranesiU3f Oyc+RklOOjwvdGQ+PHRkIHN0 vBceDNjmULPufT3sTVMzG2w3Mn DuAwD0FHhoA0LhfjZ1EARbzHRv EUSwnXUBlH8psaxjs0qlvozr ClMlHNQbGNs5BJh2ESPylIdwPb DiRGV4WkS6KLJ0jEXpyT1vfWvo uqpqeO7oQry+TVJOOjwvdGQ+ FMNqSIP8eJmeAVrfPIWvoF2cCW CtQ9l6EvSqJzH7SUcqH4BcwdN0 MFDjbUPlPWYwsWZVzG3ddwfc m9pcjotqXeAfXYItYKv4TMp1YP WmhAmtPsFzUUY5ToL4JQQ9bLGp aL0lkFnpwbincA9wTac+UGF5 PGW1QK53TC48V5VjXacqmWLdrD U+PHRhYmxlIHdpZHRoPScxMDAl SyWyjRrlZI4iIx1kHQUvDVWj bGx (more content not included)... [facility] - AP Resultson 4 Lab - AP Results [id number]#1.00OTGTIFF [facility] - AP Result[facility] 4 Lab - AP Results [id number]#1.00OTGTIFF [facility] SURGICAL PATHOLOGY REFERENCE LAB CONSULTon 2023 CASE REPORT Normal [facility] [place] Comment on above: Order Comment: Speci men Type: FORMALIN-FIXED PARAFFIN-EMBEDDED TISSUE SPECIMEN Ordering Facility: [facility] Address: [address] [place] [address] Result Comment: [facility] Pathology Report Case: [id number] Authorizing Provider: Ivan Barnhart MD Collected: 2023 09:46 AM Ordering Location: [facility] Received: 2023 09:46 AM [facility] Pathologist: Olivier Mina MD Specimen: SLIDE(S), 2 SLIDES [id number] Performed By: #### L [id number] #### [facility] CLIA [id number] [address] [place] [address] [place] CLINICAL HISTORY CONSULT REQUESTED [facility] on [facility]: Order Comment: Speci men Type: FORMALIN-FIXED PARAFFIN-EMBEDDED TISSUE SPECIMEN Ordering Facility: [facility] Address: [address] [place], [place] [address] [address] Performed By: #### L [id number] #### [facility] CLIA [id number] [address] [place] [address] [place] DIAGNOSIS COMMENT Thank you for allowi ng me to review this bladder lesion from an 78-year-old man. 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 Normal [facility] Comment on above: Order Comment: Speci men Type: FORMALIN-FIXED PARAFFIN-EMBEDDED TISSUE SPECIMEN Ordering Facility: [facility] Address: [address] [place], [place] [address] [address] Performed By: #### L [id number] #### [facility] CLIA [id number] [address] [place] [address] [facility] FINAL DIAGNOSIS Normal [facility] [place] Comment on above: Order Comment: Speci men Type: FORMALIN-FIXED PARAFFIN-EMBEDDED TISSUE SPECIMEN Ordering Facility: [facility] Address: [address] [place], [place] [address] [address] Result Comment: [facility]; [place], [place] ([id number], 09/14/23) A. Urinary bladder, biopsy: - Benign nephrogenic adenoma. BERNA 2023 Performed By: #### L [id number] #### [facility] CLIA [id number] [address] [place] [address] [facility] FINAL PERFORMING LAB Normal [facility] Comment on above: Order Comment: Speci men Type: FORMALIN-FIXED PARAFFIN-EMBEDDED TISSUE SPECIMEN Ordering Facility: [facility] Address: [address] [place], [place] [address] [place] [id number] Result Comment: Diag nostic interpretation performed at [facility], [address] [place] [address] CLIA# [id number] Frame Aligner: Jaylan Mcfadden M.D. Performed By: #### L [id number] #### [facility] CLIA [id number] [facility] [place] [address] [place] ECG 12 [place] 09-20-2023 Sinus bradycardia otherwise normal ECG [facility] Work Phone: Consent Formson 09-15-2023 Consent Forms [id number]#1.00OTGTIFF Normal [facility] MAGR Intraoperative Recordon 09-15-2023 MAGR Intraoperative Record MAGR Intra-Op Record Summary Primary Physician: Ivan Barnhart MD Finalized Date/Time: 09/15/23 14:36:30 Pt. Name: TAURUS GARCIA/Sex: 1945 MALE Med Rec #: [id number] Physician: Ivan Barnhart MD Financial #: [id number] Pt. Type: D Room/Bed: / Admit/Disch: 09/14/23 [...] Barnhart MD, Kelly RN Radloff, Leigh-Ann CSFA HEAD OF ART Role Performed Surgeon - Primary [employer] Sc[employer] Personnel Time In 09/14/23 14:34:00 09/14/23 14:25:00 09/14/23 14:25:00 Time Out 09/14/23 14:42:00 09/14/23 14:42:00 09/14/23 14:42:00 Procedure Cystoscopy Bladder Cystoscopy Bladder Cystoscopy Bladder Biopsy Biopsy Biopsy Last Modified By: Monserrat Prince RN, Kelly RN Monserrta Prince RN 09/14/23 14:41:36 09/14/23 14:41:36 09/14/23 14:41:36 Entry 4 Entry 5 Case Attendee Nena Wells CST, CST, Barbara RN CSFA Role Performed Scrub Personnel [employer] Time In 09/14/23 14:25:00 09/14/23 14:25:00 Time [...] Time 09/14/23 14:34:00 Participants Monserrat Prince RN, Vinicio Freitas CSFA HEAD OF ART, Russell HEAD OF ART, Nena LOPEZ CSFA Last Modified By: Monserrat [...] Outcome Met (O.80) (more content not included)... [facility] Provider Orderson 09-15-2023 Provider Orders [id number]#1.00OTGTIFF [facility] Inpatient Patient Summaryon 09-14-2023 Inpatient Patient Summary [place] [id number] Patient Discharge Instructions Name: TAURUS GARCIA : 1945 Patient Address: [address] [place] [address] Primary Care Provider: Name: KOMAL NGUYEN After you are discharged if you find you have any questions, please, call [phone] ext [phone] to speak to a nurse. Discharge Diagnosis: 1:Bladder tumor Prescription Information: If you have been given a prescription for narcotics, seek immediate medical attention if you have any difficulty breathing or any sudden status changes such as confusion and sleepiness. If you or anyone you know is experiencing suicidal thoughts, mental health, alcohol and/or drug addiction problems; contact the [facility] 13/03 Crisis Hotline -Text 4HOPE to 981327. If you received any narcotics, sedation, or [...] business decisions or sign any legal documents [facility] would like to thank you for [...] pyridostigmine (pyridost (more content not included)... Normal [facility] 09-14-2023 L Specimen: Received: 09/15/23 Status: SIMÓN Rudd Num: [id number] Spec Type: Surgical Subm Dr: Ivan Barnhart MD Tissues: A Urinary Bladder - biopsy (BLADDER BX) Procedures: HE/2, Gross/Micro L4 Age/ Patient Sex Location Account Attending Physician Taurus Garcia 77/M [facility] [id number] Ivan Barnhart MD SPEC NUM: [id number] RECD: 09/15/23 STATUS: [facility] NUM: [id number] SUMI: 09/14/23- SUBM DR: Ivan Barnhart MD ENTERED: 09/15/[address] [facility] DR: Irene,Lab SPEC TYPE: Surgical DEPT: [facility] ORDERED: HE/2, Gross/Micro L4 ORDERED: HE/2, Gross/Micro L4 Supplemental Report Addendum 1 Entered: 09/22/23-9217 The consult report has has been reviewed and is as follows from the [facility]: A. Urinary bladder, biopsy: -Benign nephrogenic [...] consult). - See comment. Specimen: [id number] Received: 09/15/23-1346 Status: SIMÓN Rudd Num: [id number] Spec Type: Surgical Subm Dr: Ivan Barnhart MD Tissues: A Urinary Bladder - biopsy (BLADDER BX) Procedures: NIKITA/Carolina Sanderson/Micro L4 Patient: Taurus Garcia [id number] (Continued) Specimen: [id number] Received: 09/15/23 (Continued) Pathological Diagnosis (Continued) Signed (signature on file) Delfino Burks DO 09/21/23 1501 Specimen: [id number] Received: 09/15/23 Status: SIMÓN Rudd Num: [id number] Spec Type: Surgical Subm Dr: Ivan Barnhart MD Tissues: A Urinary Bladder - biopsy (BLADDER BX) Procedures: HE/2, Gross/Micro L4 Patient: Taurus Garcia Carrie [id number] (Continued) Specimen: [id number] Received: 09/15/23 (Continued) Pathological Diagnosis (Continued) Comment: [...] in one cassette labeled A1. CPT Codes 28553 Specimen: [id number] Received: 09/15/23 Status: SIMÓN Rudd Num: [id number] Spec Type: Surgical Subm Dr: Ivan Barnhart MD Tissues: A Urinary Bladder - biopsy (BLADDER BX) Procedures: HE/2, Gross/Micro L4 Patient: TommieTaurus Carrie [id number] (Continued) Signed (signature on file) Delfino Burks DO 09/21/[address] [facility] MAGR Preoperative Recordon 0 09-14-2023 MAGR Preoperative Record MAGR Pre-Op Record Summary Primary Physician: Ivan Barnhart MD Finalized Date/Time: 09/14/23 15:31:07 Pt. Name: TAURUS GARCIA /Sex: 1945 MALE Med Rec #: [id number] Physician: Ivan Barnhart MD Financial #: [id number] Pt. Type: D Room/Bed: / Admit/Disch: 09/14/23 [...] Signed By: Kassandra España RN 09/14/23 15:31 [facility] Patient Handouton 09-14-2023 Patient Handout Normal [facility] Basophils Auto (Bld) [#/Vol] Ordered By: Antonia Grier on 05-30-2023 Basophils (Bld) [#/Vol] 0.0 10*3/uL 0.0-0.2 [facility] Basophils/100 WBC Auto (Bld) Ordered By: Antonia Grier on 05-30-2023 Basophils/100 WBC (Bld) 0.2 % . [facility] Calcium [Mass/volume] in Ser um or PlasmaOrdered By: Antonia Grier on 05-30-2023 Calcium [Mass/Vol] 8.6 mg/dL 8.6-10.3 [facility] Carbon dioxide, total [Moles /volume] in Serum or PlasmaOrdered By: Antonia Grier on 05-30-2023 CO2 [Moles/Vol] 30.6 mmol/L 21.0-31.0 [facility] Chloride [Moles/volume] in [place] or PlasmaOrdered By: Antonia Grier on 05-30-2023 Chloride [Moles/Vol] 104 mmol/L 98-107 [facility] Clostridioides difficile tox in B tcdB gene [Presence] in Stool by JAYDE with probe deteOrdered By: Silvestre Grover on 05-30-2023 C. difficile toxin B tcdB gene JAYDE+probe Ql (Stl) Negative Negative [facility] Comment on above: Testing performed by RT-PCR Creatinine [Mass/volume] in Serum or PlasmaOrdered By: Antonia Grier on 05-30-2023 Creatinine [Mass/Vol] 0.91 mg/dL 0.70-1.30 [facility] Eosinophils Auto (Bld) [#/Vo l]Ordered By: Antonia Grier on 05-30-2023 Eosinophils (Bld) [#/Vol] 0.2 10*3/uL 0.0-0.45 [facility] Eosinophils/100 WBC Auto (Bl d)Ordered By: Antonia Grier on 05-30-2023 Eosinophils/100 WBC (Bld) 3.8 % . [facility] Erythrocyte distribution wid th Auto (RBC) [Ratio]Ordered By: Antonia Grier on 05-30-2023 Erythrocyte distribution width (RBC) [Ratio] 18.1 % 12.0-14.8 [facility] Glucose [Mass/volume] in Ser um or PlasmaOrdered By: Antonia Grier on 05-30-2023 Glucose [Mass/Vol] 98 mg/dL 70-100 [facility] Comment on above: ADA recommended refe rence rangeRandom Glucose Reference Range is dependent on time and content of last meal. Glucose of more than 200 mg/dL in a nonstressed, ambulatory subject supports the diagnosis of Diabetes Mellitus. Hematocrit Auto (Bld) [Volum e fraction]Ordered By: Antonia Grier on 05-30-2023 Hematocrit (Bld) [Volume fraction] 36.5 % 38.8-50.0 [facility] Hemoglobin [Mass/volume] in BloodOrdered By: Antonia Grier on 05-30-2023 Hemoglobin (Bld) [Mass/Vol] 12.2 g/dL 13.0-17.0 [facility] Leukocytes [#/volume] correc blessing for nucleated erythrocytes in Blood by Automated counOrdered By: nAtonia Grier on 05-30-2023 WBC corrected for nucl RBC Auto (Bld) [#/Vol] 5.6 10*3/uL 4.1-10.5 [facility] Lymphocytes Auto (Bld) [#/Vo l]Ordered By: Antonia Grier on 05-30-2023 Lymphocytes (Bld) [#/Vol] 1.7 10*3/uL 1.00-4.8 [facility] Lymphocytes/100 WBC Auto (Bl d)Ordered By: Antonia Grier on 05-30-2023 Lymphocytes/100 WBC (Bld) 29.7 % . [facility] MCH Auto (RBC) [Entitic mass ]Ordered By: Antonia Grier on 05-30-2023 MCH (RBC) [Entitic mass] 28.7 pg 27.5-35.2 [facility] MCHC Auto (RBC) [Mass/Vol]Or dered By: Antonia Grier on 05-30-2023 MCHC (RBC) [Mass/Vol] 33.4 g/dL 32.5-35.6 [facility] MCV Auto (RBC) [Entitic vol] Ordered By: Antonia Grier on 05-30-2023 MCV (RBC) [Entitic vol] 85.8 fL 83.5-101 [facility] Monocytes Auto (Bld) [#/Vol] Ordered By: Antonia Grier on 05-30-2023 Monocytes (Bld) [#/Vol] 0.8 10*3/uL 0.0-0.8 [facility] Monocytes/100 WBC Auto (Bld) Ordered By: Antonia Grier on 05-30-2023 Monocytes/100 WBC (Bld) 14.8 % . [facility] Neutrophils Auto (Bld) [#/Vo l]Ordered By: Antonia Grier on 05-30-2023 Neutrophils (Bld) [#/Vol] 2.9 10*3/uL 1.8-7.7 [facility] Neutrophils/100 WBC Auto (Bl d)Ordered By: Antonia Grier on 05-30-2023 Neutrophils/100 WBC (Bld) 51.5 % . [facility] No Panel InformationOrdered By: Antonia Grier on 05-30-2023 Estimated GFR (CKD-EPI) > 60.0 mL/Min [facility] Creatinine Clearance (Chem 89.45 [facility] Nucleated erythrocytes [Pres ence] in Blood by Automated countOrdered By: Antonia Grier on 05-30-2023 Nucleated RBC Auto Ql (Bld) 0.2 /100{WBC} 0-0.5 [facility] Platelet mean volume Auto (B ld) [Entitic vol]Ordered By: Antonia Grier on 05-30-2023 Platelet mean volume (Bld) [Entitic vol] 7.9 fL 6.6-10.1 [facility] Platelets Auto (Bld) [#/Vol] Ordered By: Antonia Grier on 05-30-2023 Platelets (Bld) [#/Vol] 258 10*3/uL 150-450 [facility] Potassium [Moles/volume] in Serum or PlasmaOrdered By: Antonia Grier on 05-30-2023 Potassium [Moles/Vol] 3.6 mmol/L 3.5-5.1 [facility] RBC Auto (Bld) [#/Vol]Ordere d By: Antonia Grier on 05-30-2023 RBC (Bld) [#/Vol] 4.25 10*6/uL 3.90-5.60 [facility] Serum or plasma anion gap de terminationOrdered By: Antonia Grier on 05-30-2023 Anion gap [Moles/Vol] 9.0 mmol/L 6.0-15.0 [facility] Sodium [Moles/volume] in Ser um or PlasmaOrdered By: Antonia Grier on 05-30-2023 Sodium [Moles/Vol] 140 mmol/L 136-145 [facility] Urea nitrogen [Mass/volume] in Serum or PlasmaOrdered By: Antonia Grier on 05-30-2023 Urea nitrogen [Mass/Vol] 19 mg/dL 7-25 [facility] WBC Auto (Bld) [#/Vol]Ordere d By: Antonia Grier on 05-30-2023 WBC (Bld) [#/Vol] 5.6 10*3/uL 4.1-10.5 [facility] Alanine aminotransferase [En zymatic activity/volume] in Serum or PlasmaOrdered By: Silvestre Grover on 05-22-2023 ALT [Catalytic activity/Vol] 30 U/L 7-52 [facility] Albumin [Mass/volume] in Ser um or Plasma by Bromocresol green (BCG) dye binding methoOrdered By: Silvestre Grover on 05-22-2023 Albumin BCG dye [Mass/Vol] 2.5 g/dL 3.5-5.7 [facility] Alkaline phosphatase [Enzyma tic activity/volume] in Serum or PlasmaOrdered By: Silvestre Grover on 05-22-2023 ALP [Catalytic activity/Vol] 69 U/L 34-104 [facility] Aspartate aminotransferase [ Enzymatic activity/volume] in Serum or PlasmaOrdered By: Silvestre Grover on 05-22-2023 AST [Catalytic activity/Vol] 34 U/L 13-39 [facility] Bilirubin.total [Mass/volume ] in Serum or PlasmaOrdered By: Silvestre Grover on 05-22-2023 Bilirubin [Mass/Vol] 0.6 mg/dL 0.3-1.0 [facility] Globulin Calc (S) [Mass/Vol] Ordered By: Silvestre Grover on 05-22-2023 Globulin (S) [Mass/Vol] 4.7 g/dL [facility] Prealbumin [Mass/volume] in Serum or PlasmaOrdered By: Silvestre Grover on 05-22-2023 Prealbumin [Mass/Vol] 11.9 mg/dL 17.0-34.0 [facility] Protein [Mass/volume] in Ser um or PlasmaOrdered By: Silvestre Grover on 05-22-2023 Protein [Mass/Vol] 7.2 g/dL 6.4-8.9 [facility] Serum or plasma albumin/glob ulin mass ratioOrdered By: Silvestre Grover on 05-22-2023 Albumin/Globulin [Mass ratio] 0.5 {ratio} [facility] Basophils Auto (Bld) [#/Vol] Ordered By: Donita Armstrong on 05-20-2023 Basophils (Bld) [#/Vol] 0.0 10*3/uL 0.0-0.2 [facility] Basophils/100 WBC Auto (Bld) Ordered By: Donita Armstrong on 05-20-2023 Basophils/100 WBC (Bld) 0.3 % . [facility] Calcium [Mass/volume] in Ser um or PlasmaOrdered By: Donita Armstrong on 05-20-2023 Calcium [Mass/Vol] 8.1 mg/dL 8.6-10.3 [facility] Carbon dioxide, total [Moles /volume] in Serum or PlasmaOrdered By: Donita Armstrong on 05-20-2023 CO2 [Moles/Vol] 33.6 mmol/L 21.0-31.0 [facility] Chloride [Moles/volume] in [place] or PlasmaOrdered By: Donita Patti on 05-20-2023 Chloride [Moles/Vol] 107 mmol/L 98-107 [facility] Creatinine [Mass/volume] in Serum or PlasmaOrdered By: Donita Armstrong on 05-20-2023 Creatinine [Mass/Vol] 0.96 mg/dL 0.70-1.30 [facility] Eosinophils Auto (Bld) [#/Vo l]Ordered By: Donita Patti on 05-20-2023 Eosinophils (Bld) [#/Vol] 0.6 10*3/uL 0.0-0.45 [facility] Eosinophils/100 WBC Auto (Bl d)Ordered By: Donita Armstrong on 05-20-2023 Eosinophils/100 WBC (Bld) 10.4 % . [facility] Erythrocyte distribution wid th Auto (RBC) [Ratio]Ordered By: Donita Armstrong on 05-20-2023 Erythrocyte distribution width (RBC) [Ratio] 17.8 % 12.0-14.8 [facility] Glucose [Mass/volume] in Ser um or PlasmaOrdered By: Donita Armstrong on 05-20-2023 Glucose [Mass/Vol] 94 mg/dL 70-100 [facility] Comment on above: ADA recommended refe rence rangeRandom Glucose Reference Range is dependent on time and content of last meal. Glucose of more than 200 mg/dL in a nonstressed, ambulatory subject supports the diagnosis of Diabetes Mellitus. Hematocrit Auto (Bld) [Volum e fraction]Ordered By: Donita Armstrong on 05-20-2023 Hematocrit (Bld) [Volume fraction] 36.9 % 38.8-50.0 [facility] Hemoglobin [Mass/volume] in BloodOrdered By: Donita Armstrong on 05-20-2023 Hemoglobin (Bld) [Mass/Vol] 12.0 g/dL 13.0-17.0 [facility] Leukocytes [#/volume] correc blessing for nucleated erythrocytes in Blood by Automated counOrdered By: Donita Armstrong on 05-20-2023 WBC corrected for nucl RBC Auto (Bld) [#/Vol] 6.0 10*3/uL 4.1-10.5 [facility] Lymphocytes Auto (Bld) [#/Vo l]Ordered By: Donita Armstrong on 05-20-2023 Lymphocytes (Bld) [#/Vol] 1.3 10*3/uL 1.00-4.8 [facility] Lymphocytes/100 WBC Auto (Bl d)Ordered By: Donita Armstrong on 05-20-2023 Lymphocytes/100 WBC (Bld) 22.4 % . [facility] MCH Auto (RBC) [Entitic mass ]Ordered By: Donita Armstrong on 05-20-2023 MCH (RBC) [Entitic mass] 27.9 pg 27.5-35.2 [facility] MCHC Auto (RBC) [Mass/Vol]Or dered By: Donita Armstrong on 05-20-2023 MCHC (RBC) [Mass/Vol] 32.6 g/dL 32.5-35.6 [facility] MCV Auto (RBC) [Entitic vol] Ordered By: Donita Armstrong on 05-20-2023 MCV (RBC) [Entitic vol] 85.6 fL 83.5-101 [facility] Monocytes Auto (Bld) [#/Vol] Ordered By: Donita Armstrong on 05-20-2023 Monocytes (Bld) [#/Vol] 0.5 10*3/uL 0.0-0.8 [facility] Monocytes/100 WBC Auto (Bld) Ordered By: Donita Armstrong on 05-20-2023 Monocytes/100 WBC (Bld) 8.4 % . [facility] Neutrophils Auto (Bld) [#/Vo l]Ordered By: Donita Armstrong on 05-20-2023 Neutrophils (Bld) [#/Vol] 3.5 10*3/uL 1.8-7.7 [facility] Neutrophils/100 WBC Auto (Bl d)Ordered By: Donita Armstrong on 05-20-2023 Neutrophils/100 WBC (Bld) 58.5 % . [facility] No Panel InformationOrdered By: Donita Armstrong on 05-20-2023 Estimated GFR (CKD-EPI) > 60.0 mL/Min [facility] Creatinine Clearance (Chem 87.95 [facility] Nucleated erythrocytes [Pres ence] in Blood by Automated countOrdered By: Donita Armstrong on 05-20-2023 Nucleated RBC Auto Ql (Bld) 0.4 /100{WBC} 0-0.5 [facility] Platelet mean volume Auto (B ld) [Entitic vol]Ordered By: Donita Armstrong on 05-20-2023 Platelet mean volume (Bld) [Entitic vol] 8.5 fL 6.6-10.1 [facility] Platelets Auto (Bld) [#/Vol] Ordered By: Donita Armstrong on 05-20-2023 Platelets (Bld) [#/Vol] 134 10*3/uL 150-450 [facility] Potassium [Moles/volume] in Serum or PlasmaOrdered By: Donita Armstrong on 05-20-2023 Potassium [Moles/Vol] 3.6 mmol/L 3.5-5.1 [facility] RBC Auto (Bld) [#/Vol]Ordere d By: Donita Patti on 05-20-2023 RBC (Bld) [#/Vol] 4.31 10*6/uL 3.90-5.60 [facility] Serum or plasma anion gap de terminationOrdered By: Donita Armstrong on 05-20-2023 Anion gap [Moles/Vol] 6.0 mmol/L 6.0-15.0 [facility] Sodium [Moles/volume] in Ser um or PlasmaOrdered By: Donita Armstrong on 05-20-2023 Sodium [Moles/Vol] 143 mmol/L 136-145 [facility] Urea nitrogen [Mass/volume] in Serum or PlasmaOrdered By: Donita Armstrong on 05-20-2023 Urea nitrogen [Mass/Vol] 26 mg/dL 7-25 [facility] WBC Auto (Bld) [#/Vol]Ordere d By: Donita Armstrong on 05-20-2023 WBC (Bld) [#/Vol] 6.0 10*3/uL 4.1-10.5 [facility] Clostridioides difficile tox in B tcdB gene [Presence] in Stool by JAYDE with probe deteOrdered By: Suraj Razo on 05-19-2023 C. difficile toxin B tcdB gene JAYDE+probe Ql (Stl) Negative Negative [facility] Comment on above: Testing performed by RT-PCR Magnesium [Mass/volume] in [place] or PlasmaOrdered By: Suraj Razo on 05-19-2023 Magnesium [Mass/Vol] 2.0 mg/dL 1.9-2.7 [facility] Glucose Glucometer (BldC) [M ass/Vol]Ordered By: Suraj Razo on 05-17-2023 Glucose [Mass/Vol] 107 mg/dL [facility] Comment on above: Random Glucose Refer ence Range is dependent on time and content of last meal. Glucose of more than 200 mg/dL in a nonstressed, ambulatory subject supports the diagnosis of Diabetes Mellitus. Automated erythrocytes count in urine sediment (number/area)Ordered By: Donita Armstrong on 05-16-2023 RBC Auto (Urine sed) [#/Area] 1-2 [HPF] 0-4 [facility] Automated leukocytes count i n urine sediment (number/area)Ordered By: Donita Armstrong on 05-16-2023 WBC Auto (Urine sed) [#/Area] 1-2 [HPF] 0-4 [facility] Automated urine sediment nabila cium oxalate crystal count by microscopy (number/high powOrdered By: Donita Armstrong on 05-16-2023 Calcium oxalate crystals LM.HPF (Urine sed) [#/Area] 1+ [HPF] [facility] Bacterial blood cultureOrder ed By: Donita Armstrong on 05-16-2023 Bacteria identified Cx Nom (Bld) NO GROWTH 5 DAYS [facility] Bacteria identified Cx Nom (Bld) Staphylococcus sp coag neg [facility] Bilirubin Test strip Ql (U)O rdered By: Donita Armstrong on 05-16-2023 Bilirubin Ql (U) Negative Negative [facility] Color Auto (U)Ordered By: Nikita Armstrong on 05-16-2023 Color (U) Yellow Yellow [facility] Creatine kinase [Enzymatic a ctivity/volume] in Serum or PlasmaOrdered By: Jamel Packer on 05-16-2023 CK [Catalytic activity/Vol] 175 U/L 30-223 [facility] Ketones Auto test strip (U) [Mass/Vol]Ordered By: Donita Armstrong on 05-16-2023 Ketones (U) [Mass/Vol] Negative Negative [facility] - UrinalysisOrder ed By: Donita Armstrong on 05-16-2023 Hyaline casts LM Ql (Urine sed) 9-19 [LPF] 0-8 [facility] Nitrite Test strip Ql (U)Ord ered By: Donita Armstrong on 05-16-2023 Nitrite Ql (U) Negative Negative [facility] No Panel InformationOrdered By: Suraj Razo on 05-16-2023 Bedside Glucose Comment Glu2: cleaned meter [facility] No Panel InformationOrdered By: Donita Armstrong on 05-16-2023 Bacterial ID (NA Multiplex Assay) [facility] Protein Auto test strip (U) [Mass/Vol]Ordered By: Donita Armstrong on 05-16-2023 Protein (U) [Mass/Vol] 30 mg/dL Negative Fi [facility] Specific gravity Auto test s trip (U) [Rel density]Ordered By: Donita Armstrong on 05-16-2023 Specific gravity (U) [Rel density] 1.026 1.001-1.03 0 [facility] Squamous epithelial cells de tection in urine sediment by light microscopyOrdered By: Donita Armstrong on 05-16-2023 Epithelial cells.squamous LM Ql (Urine sed) 0-1 [HPF] 0-2 [facility] Thyrotropin [Units/volume] i n Serum or PlasmaOrdered By: Donita Armstrong on 05-16-2023 TSH Qn 1.50 m[IU]/L 0.45-5.33 [facility] Troponin I.cardiac [Mass/vol ume] in Serum or Plasma by Detection limit <= 0.01 ng/Ordered By: Donita Armstrong on 05-16-2023 Troponin I.cardiac DL <= 0.01 ng/mL [Mass/Vol] 33.0 pg/mL 0.0-20.0 [facility] Urine bacteria detection by automated methodOrdered By: Donita Armstrong on 05-16-2023 Bacteria Auto Ql (U) None seen None Seen [facility] Urine clarity by refractomet ry automatedOrdered By: Donita Armstrong on 05-16-2023 Clarity Refractometry automated (U) Clear Clear [facility] Urine culture routineOrdered By: Donita Armstrong on 05-16-2023 Bacteria identified Cx Nom (U) No Growth 2 Days [facility] Urine glucose measurement by automated test strip (mass/volume)Ordered By: Donita Armstrong on 05-16-2023 Glucose Auto test strip (U) [Mass/Vol] Normal mg/dL Normal [facility] Urine hemoglobin detection b y automated test stripOrdered By: Donita Armstrong on 05-16-2023 Hemoglobin Auto test strip Ql (U) Negative Negative [facility] Urine leukocyte esterase det ection by automated test stripOrdered By: Donita Armstrong on 05-16-2023 Leukocyte esterase Auto test strip Ql (U) 1+ Negative [facility] Urobilinogen Auto test strip (U) [Mass/Vol]Ordered By: Donita Armstrong on 05-16-2023 Urobilinogen (U) [Mass/Vol] Normal mg/dL Normal [facility] Yeast detection in urine sed iment by light microscopyOrdered By: Donita Armstrong on 05-16-2023 Yeast LM Ql (Urine sed) None seen [HPF] None Seen [facility] pH Auto test strip (U)Ordere d By: Donita Armstrong on 05-16-2023 pH (U) 5.5 [pH] 5.0-9.0 [facility] Laboratory - Chemistry and C hemistry - challengeOrdered By: Eliezer Newell on 05-15-2023 CO2 [Moles/Vol] 36.3 mmol/L 23.0-27.0 [facility] HCO3 (Bld) [Moles/Vol] 34.8 mmol/L 23.0-29.0 [facility] No Panel InformationOrdered By: Eliezer Newell on 05-15-2023 Arterial Blood Base Excess 9.2 mmol/L -3.0-3.0 [facility] Arterial Blood Oxygen Content 7.9 mmol/L 6.6-9.7 [facility] Arterial Blood Oxygen Saturation 92.2 % 95.0-100.0 [facility] Arterial Blood Partial Pressure CO2 50.8 mm[Hg] 35.0-45.0 [facility] Arterial Blood Partial Pressure O2 60.0 mm[Hg] 80.0-100.0 [facility] Arterial Blood pH 7.45 7.35-7.[address] [facility] Blood Gas Critical Value See comment [facility] Comment on above: Critical Value humphries d on: 05/15/2023 at 05:57 Blood Gas PEEP 5 cmH2O [facility] Blood Gas Sample Site Right radial F [facility] Blood Gas Set Respiration Rate 10 [facility] Blood Gas Tidal Volume 500 [facility] Ventilator Mode Ac [facility] FiO2 35 % [facility] Triglyceride [Mass/volume] i n Serum or PlasmaOrdered By: Lexy Chappell on 05-15-2023 Triglyceride [Mass/Vol] 224 mg/dL 35-149 [facility] Comment on above: TRIG ATP III CLASSIF ICATIONTRIG less than 150 mg/dL NormalTRIG 150-199 mg/dL Borderline highTRIG 200-500 mg/dL High TRIG greater than 500 mg/dL Very highStandard traceable to the Center for Disease Conrtrol and Prevention (CDC) test method. No Panel InformationOrdered By: Eliezer Newell on 05-13-2023 Arterial Blood pCO2 (Temp correct) 53.2 mm[Hg] 35.0-45.0 [facility] Arterial Blood pH (Temp corrected) 7.36 7.35-7.45 [facility] Arterial Blood pO2 (Temp corrected) 77.8 mm[Hg] 80.0-100.0 [facility] Aerobic cultureOrdered By: Valdemar Armstrong on 05-12-2023 Bacteria identified Aer cx Nom (Unsp spec) 2 Days [facility] Basophils/100 WBC Manual cnt (Bld)Ordered By: Stanley Burt on 05-12-2023 Basophils/100 WBC (Bld) 0 % 0-2 [facility] Eosinophils/100 WBC Manual c nt (Bld)Ordered By: Stanley Burt on 05-12-2023 Eosinophils/100 WBC (Bld) 6 % 1-3 [facility] Gram stain for investigation of transfusion reactionOrdered By: Donita Armstrong on 05-12-2023 Microscopic observation Gram stain Nom (Unsp spec) [facility] Haptoglobin [Mass/volume] in Serum or PlasmaOrdered By: Stanley Burt on 05-12-2023 Haptoglobin [Mass/Vol] 93 mg/dL 44-215 [facility] Comment on above: Hemolysis is present at a level that could interfere with the result. Lymphocytes/100 WBC Manual c nt (Bld)Ordered By: Stanley Burt on 05-12-2023 Lymphocytes/100 WBC (Bld) 5 % 18-42 [facility] Monocytes/100 WBC Manual cnt (Bld)Ordered By: Stanley Burt on 05-12-2023 Monocytes/100 WBC (Bld) 1 % 2-11 [facility] No Panel InformationOrdered By: Stanley Burt on 05-12-2023 Slides for Pathologist Review Ordered path review [facility] Platelet adequacy [Presence] in Blood by Light microscopyOrdered By: Stanley Burt on 05-12-2023 Platelets LM Ql (Bld) Decreased Normal [facility] Platelet morphology finding [Identifier] in BloodOrdered By: Stanley Burt on 05-12-2023 Platelet morphology finding Nom (Bld) Normal Normal [facility] Polychromasia [Presence] in Blood by Light microscopyOrdered By: Stanley Burt on 05-12-2023 Polychromasia LM Ql (Bld) Slight [facility] RBC morphologyOrdered By: Farhan Burt on 05-12-2023 RBC morphology finding Nom (Bld) N/A [facility] Segmented neutrophils/100 WB C Manual cnt (Bld)Ordered By: Stanley Burt on 05-12-2023 Segmented neutrophils/100 WBC (Bld) 88 % 50-70 [facility] Teardrop cell detectionOrder ed By: Stanley Burt on 05-12-2023 Dacrocytes LM Ql (Bld) Slight [facility] Alanine aminotransferase [En zymatic activity/volume] in Serum or PlasmaOrdered By: Jarret Garza on 05-11-2023 ALT [Catalytic activity/Vol] 23 U/L 7-52 [facility] Albumin [Mass/volume] in Ser um or Plasma by Bromocresol green (BCG) dye binding methoOrdered By: Jarret Garza on 05-11-2023 Albumin BCG dye [Mass/Vol] 3.1 g/dL 3.5-5.7 [facility] Alkaline phosphatase [Enzyma tic activity/volume] in Serum or PlasmaOrdered By: Jarret Garza on 05-11-2023 ALP [Catalytic activity/Vol] 55 U/L 34-104 [facility] Aspartate aminotransferase [ Enzymatic activity/volume] in Serum or PlasmaOrdered By: Jarret Garza on 05-11-2023 AST [Catalytic activity/Vol] 28 U/L 13-39 [facility] Bilirubin.total [Mass/volume ] in Serum or PlasmaOrdered By: Jarret Garza on 05-11-2023 Bilirubin [Mass/Vol] 0.9 mg/dL 0.3-1.0 [facility] Globulin Calc (S) [Mass/Vol] Ordered By: Jarret Garza on 05-11-2023 Globulin (S) [Mass/Vol] 2.7 g/dL [facility] INR in Platelet poor plasma by Coagulation assayOrdered By: Jarret Garza on 05-11-2023 INR Coag (PPP) [Relative time] 1.4 {INR} [facility] Comment on above: INR Therapeutic Rang e A) Pre- and Peroperative OAT started two weeks before surgery. NOT HIP SURGERY: 1.5 - 2.5 HIP SURGERY: 2 - 3B) Primary and secondary prevention of venous THROMBOSIS: 2 - 3C) Active venous thrombosis, pulmonary embolismand prevention of recurrent venous thrombosis: 2 - 3D) Prevention of arterial thromboembolismincluding patients with mechanical heart valves: 3 - 4.5 Phosphate [Mass/volume] in [place] or PlasmaOrdered By: Jarret Garza on 05-11-2023 Phosphate [Mass/Vol] 2.7 mg/dL 3.7-7.2 [facility] Protein [Mass/volume] in [place] or PlasmaOrdered By: Jarret Garza on 05-11-2023 Protein [Mass/Vol] 5.8 g/dL 6.4-8.9 [facility] Prothrombin time (PT)Ordered By: Jarret Garza on 05-11-2023 PT Coag (PPP) [Time] 17.1 s 9.0-12.9 [facility] Comment on above: A hematocrit value g reater than 55% may lead to inaccurate results in coagulation testing. Patients having hematocrit values >55% require a special collection tube for coagulation studies. Please contact the laboratory at [phone] for redraw instructions. Serum or plasma albumin/glob ulin mass ratioOrdered By: Jarret Garza on 05-11-2023 Albumin/Globulin [Mass ratio] 1.1 {ratio} [facility] Coding Summaryon 03-16-2023 Coding Summary HTMLBase 64 OdhzeptcNZa0cJl+PGhlYWQ+PE 3NVNCdL37gtDYoeJ8oW2KDAUfX BzuyBJCXNWaYPnRfkcSfOH6uoQ NjZXJu IC8+TA1fRZKpLfztfBFot8R5xA M5Z68pgb1gNAllbES7ZUFeDaEk bisep1ikeRf6FDezSyzrLmGp GBOrhJ63LII4fD08Vk27wSAxkO Paj0karNw5PrIgDOVyWRA2uSoj VIscd7WkGEBbT24bfFBuq7V1 VRBcnAdemOXjMtIqkZJ8yG1xQI bbwbqyi3lewmfjYih4yr97gHGz c6E3fGJ0F8NdasA1RAOwlVGn EsbgwWQGbL8vpdyfm1kzahjvRp HoNSKzMVs4HVs9WTEihUtxBxOy XA12YLY7ADKvstBiC3AnYQLe uFvxVkC3a5A2Ql9VV3MKTzmxZ7 VNTUFSWTwvdGQ+GW36sv61M2Bp IwbzTlf0HXBkVVX3yEC6cN6l EOWmQYhaf6R5pIY2N6AnzwDuyd 5na9skYGIyPZkkJ65zxUZep8W9 LQPzvXO9OHZdzCmnJoOboK85 Oyc+WWWzjAuoy6XjAwzxg0axf3 fqyTi7MmlrOXFymsOzsToeJYN9 f5SpIs1yNJBlmLC2eYJ1kB2p NpPoYcC5KNhyE126OiHvqSUiRd atW52fY5SbtWY+YKHuGwn8FNBb cFivSI7oA1BuTBGcpayhjQWl iYqdNU5xSFTurpufSJVpuO0gIH BzE6y8FvHfJtL0UXlnW0QwURSo rjtvKb36rL9fNlIdQaE6BNro U3ArgvB1UVHdlWBcYUbuQQW6Q5 1ir1S2OXCrVOOhDZI4zPC1hD4l bGlnbjogbGVmdDsgdmVydGlj NWvtZWqaJ840MQDhrNctTiZvGG luZyBEYXRlOiAgMDcvMjcvMjAy MzwvdGQ+NDVmKRV1oMrxFGZv qXBaQUkuZk6mcGfzwOofAZ2pMX PqmtqmGFLqrU2zEJFqeBNdqAac OW0vZIPhhsqvv837CmMvZUK9 OAXyhWXmY4PxzH6tAaDlBFHjZE NoC8QlbKQfOFdlR708IBclPpH3 DYHdlcRrU8XsAPMyrIksLzB1 n8E1Xj8Bz3LymewmU1CtaJYoMh LmMtwjJOe0H1JyYpentGY+PC90 EIFfXM11LHw4EMK0rMemPOft SRSxF0KhiT4nCqGbOAMbSWRfHv c+PHRhYmxlIHdpZHRoPScxMDAl KaLltLrrSJ8dCm8cMHIdKLEw tQqnbNTpRxOmx0mnZEJoUWiuYS 3clKnxS8GqnUU6OWJqn3x4Uh38 E32hS0EqhPX+GDVxgRK9lLQ1 gO4yNlSuEuC6VActM306QnGdqZ NtGfmmw0omd1awyWy9RxC8HBZr thEquTvhQJD3w1KqDl17C18w IHdpZHRoPSIxNSUiIHZhbGlnbj 3ojN7fYb5+UOTljVB5hHH7vI6g GfGhZtH1AKdzU918ErSkqOLk Eautn8olf4auhJz9WkWrGXJlyp OkuGehTOB2w1ZoRc59T5FtaSrl v8NaFmp9pw40qOJmq6Q7fNV5 V6JuCCEuckhvgPFnlIwoJH3eBR OaxaxrHBJlwX1hAVBtZ2x1InUb HeC6VTheT8RfceB2SQJfqZLs LBXqtWRRoI4ywrsck2cchppmDp SqLVOjTFb4CKp2ECVxhOvqFxZj EGZ6OcS9NQG1pEEfoA8hzFtx ryrfkQ6bTwh+AXV2fEWnkADRPP 1lOjwvdGQ+VMBnHWE9zUxhTZdh THFerU5dJCJqX9l1IfCrBpG9 LUleB1EmwbV2DMYabRHkEPEvaT BYaD1ycjydc2uqdrnqRxWcYPXj HMo0NJc4MVLwyLfaYvQfAIU8 VpF5ARM9bARubX9zwGfxhezzgW 9wOyc+KsvqkZfwEIY8RZx8L2Ap Law2MFWntKfoCT4puWAyOVsm Xo5usHefmOckLP6pNADtrvbjo3 61RtTyv8ofNOJxwOBwBJzqXRF9 B64gb5K1TPWiNAVnSJQ5bSL8 oD9ztAggzwcbzDGzqKrabrPlzM vdYHwgJNeiM684AEEwkJvpOsMz CUr2K9VaWfb5PJCqcRvlQD4f xPFwQHhuOm3dvWlorZfsSW3sOV Rjbltxs677RyUfr7elIRAkaOLn KHzaCCP0T22vy5I3KOTzXNMu LPV1qPU2zI9ktZngaskxtTWznN vgofAtpZmjUHemSEgzY925JPZy eXbpAjXnmIy2M0CnAqu8YYVp kYhuQJ4waESxLDqhDw1zxFqmeD rhUV8sWNZtccenn856WrRek9dc YYHnoAXhNIhnWNO8O34vw0D4 GABtEXTsPSF7iBO0fH8flLpbzf ogbGVmdDsgdmVydGljYWwtYWxp S951PPZbvQacJaPxiVdksvTu QRwgANu2N2KuAzprjQI+PC90YW NoFN58sTKgvSAxu5ugeTf7SjLt RTJgBDV6wYgeSYvht5KoBBIr P91msKFvm3I5EZKneXyeyGJnDi AzcCI7hH0sQEadrkyjl8oqodjr Primv4hyvm30vW11R28eYZdn MSZaBCEiOEFbGKAphGgcbj9ukP 9wIi8+ACRtsYR7mLV6eN8uSWEz HlW8OYpkM749IpEegMLsBcli d7txz6dpuXm5WaN3TSBbcmFhxU woSZF0z4JjHd95T38pMVkvXAZu LUVeDWYxNFCksCpwiy4pxL3x Ii8+EXUbsJB3uAI0gQ1tNnPvGp E3TFrbT148MiVonFIeJtrjX07c P7HkfFD+LHDqNgx4ZHOugUfg VQ6miKFyQRoyWn8zEYF8StOuOt EhGYbhW9ReJKCimngrdnuvyDR6 XPNrDCYraP56Rz8vaIvfNCAe cETFhO6ekdqhi8jikbriGjDlTT JoRGe4AMd1PDQwxCejOqBeLGB0 XrZ3FKE1dHYyzJ4meWfokgie kT2lD4HqCWYvplayVm30vJ7wHt FoPwT6WZbaExg+VEhPTUFTLCBD QVFKBGJEVJE3A0ZwRiz5ODMj wOeoYC2zxGPkAFqcOv3agJigjN rhPG1cATIzzosfSCRedA2tDIYj mVYvpNbvAG2iLBLnfopqu712 ZlKxISO2XUCuxCUzD6FlkM4bFp YhWYWuXTKwP2QauBJgFGieF154 QWkwTsY0HNKvknXkZ5RdSCTf yNfsFsR4r1Z3Ux0fNg4lNq9kZZ Y5SL59OC65nEFoj8Q6fRK0B7Zx KGEshuuiikyflKA3STGxQSHe mK79lAHxRVdqCf9xz9N6u745NZ FdZFFuqN51Xt5aaPmkOPKgmQZY yR9zdzxkp2uizqhfXmZdKCDl IYe8ZTw8UMQleWgvTrQuIYG6Rz F3RUI7pIOapE4vySmqckvzfM0k Oyc+IbbeZHSjvzH0M2ZzIej6 ZYKvrNgqFZ1pyCCyNAfuBf5glD sbfTmiPK5hWLPpgfeiSXTrlV2d VLByuWWxlGtbGA2bWRWbcmcr a105PpDvQRK1KTUdpUInS9VaaJ 3jHnLuLZRgQOLdI3VxrEXiRNjr G675VAreHpP0NMRducCgU5Lx SGRruYwhPuY8h4H7Yo7DESpASU 50ET08mHTub7U4kXM9J8ZiTXAy zmhroqqlxCD3XQKmOBXoyS75 iQLtPNtdNw3wc0H6n668AVWgZK LklH77Yc4pwJaxEBHupPCScW7n dxntn9pqxzlkHyUfMCRiIGl0 KBq6WQHgbTkzGjSmXXB5WbK6OS J4zTPcbN9bmQulsrwafD5rUte+ Z2E5G4ZhJbcyzCE+XA99CXHp FB97zZXhpJHls1ldnDu4PtUuSE XcTKN7uDfgYCanr7EeMAXgM67o pLFjo9B7OPPygIdugLEsZlLf iNT0mA3vPRoifmopi7zgemxrOq tzs5uoac36cR49X87uOUdrDGUw UDNtFABkMSDawSjuql4leH7a Ii8+HBKqnST2oJP4uT0zAjCpUy J9ITapC744JiBplSArPjdte4ig t1toaQa0AjSpPEPzkeQseLtj LNO5u3EjFk49N72sYIbdJXAyFL IcPYVnSJKaaGxvep0soH9dQp3+ HM4qc0lhmr08bQ02kEC+PHRk FOV0qDrlTRdlNOGfvA7jFNffBx X2ITDiOoHobK92xWXeEQahXr4m lTmhsNroSG6oBHOfoagbp201 MoUjh6nkTBXzpFJaNRrrXLR9Q0 2fr9K3KUJzNORuEHC1lGO1qF1t bGlnbjogbGVmdDsgdmVydGlj BYpbIGgkO467JHGdcKgcYuKtgO MlO9jpoaSPPB0eRjlsrMH+PHRk ZHZ0uPkbTWhvRHTxwI5yHVUb Q6g3WqOzBuJ7MNnkT1WlpqB4WE NmvLSzZPVljYILaA3xlwenj2at duvjHeVvBIAaFDd9NRm8QYIx cGmdMwJnTUS1KrO6SDS6lGEdeH 8zjQqqpqhlrJ0bMbh+RklOOjwv dGQ+YPNqBZG3dOfgHTqzXEYq vH2qCGShE2q0AzXbIqT3JObmD4 ApvvN4KYCpcGAiVUZlcNSLcW0b qkira3pdagfrDjJgHRElRHs9 WWf4CXXqvXmlHeZyNHM2GcL9CD V2sOMvlT1wtDjionytqU3xDgu+ TVJOOjwvdGQ+YRUjRYC2hMmk KRdsKADdlF8dTYMyJ1s3ZdQeCf V5OAndM6QsjjN9TCWagGPyFXDf aSKJyW8gmjvsl6ycnrejWhDn ZCCqRTf4HYn5RKMkxZpyIyCxIG X4GaX6FUX8uFVtqS9jqQslwnlc yD1bJsm+STQ7SKF4OK42EB67 U0VvBmakdZMfaXP+PHRhYmxlIH diSQHcOAvyCUYgSyZiuTcoKT1i Pl3qZJKuEHSdhBvreMLxSoVq b2x (more content not included)... Normal [facility] Lab - AP [facility] 3 Lab - AP Results [id number] [facility] Pathology Sendout Teston Pathology Send Out. See Report Normal [facility] Comment on above: Order Comment: Urine for Cytology Performed By: #### 2 [id number] #### [facility] (DEFAULT) [address] [place] [address] Miscellaneous Testing LCon 0 03-10-2023 Misc. Test Result LC See comment Invalid Interpretation Code [facility] Comment on above: Order Comment: not s ure if specimen collected second urination in the morning it is a drop off ..jwilkins Result Comment: orde red wrong and fixed today SD/TB Performed By: #### 1 [id number] #### [facility] (DEFAULT) [address] [place] [address] [id number] Miscellaneous Testing LCon 0 03-09-2023 Test Code LC 255783 Invalid Interpretation Code [facility] Comment on above: Order Comment: not s ure if specimen collected second urination in the morning it is a drop off ..jwilkins Performed By: #### 1 [id number] #### [facility] (DEFAULT) [address] [place] [address] 14705 Test Name LC urine cytology Invalid Interpretation Code [facility] Comment on above: Order Comment: not s ure if specimen collected second urination in the morning it is a drop off ..jwilkins Performed By: #### 1 [id number] #### [facility] (DEFAULT) [address] [place] [address] 26741 Provider Orderson 03-09-2023 Provider Orders [id number] [facility] Coding Summaryon 01-26-2023 Coding Summary HTMLBase 64 RyysapgrWLc6iDc+PGhlYWQ+PE 3OYPYzW16dtCTmhM2oQ7XLVPjQ AcfpLTYUEPiCVnKpooJdHS6zrQ NjZXJu IC8+VH3nKSYcHtozsEXxa1F5rG L4X22mgb8tAZdzuJL7KBVbPhEt usldy8wqwYd8GXgeKeajWbIn TNXykU63DLG7gT41Hk70aQTvfS Bdu8pmyFj5OiDgYBOcBNE8rUyj MGosf7PiQKHkB30mbJJjp5D9 TBEhjGymwSQiVdSjlNY4fP3wOF hxdkcdr1vruutbCpw2js15xZTi m7U4oEH8A5KnokB2ANOmjGVx RufijGUYvE2vczwih5bwrkqrKu LhMIXrQQc2AJc5WRIjsQqoOoXq LB67EHB7WANeucFqY6AoFYBo uMbtSvU9t9I7Sm6PB4UDMqvsG1 VNTUFSWTwvdGQ+AC06qc28P1Hx RbdiZds2HTAcXWH5jIF1gW0j UJQxLLkvr0U0qFT5M6JxeiSggq 0xp0rsJECaRVnoF48nnKBej6S6 JCJjsGA9JCNfkZwkBcSkmQ50 Oyc+PUQbhQqya1RwDepng1pnk5 jqmXo2WuhlWNHmzqSnwEtvOVZ1 x1XzIo9sPFJefPZ4sWI5jJ9a WiVtVlG5GAzaA101SuFsqBCyFt naL76iG8TmtWY+YETuNco5HWMa iBaiYO3xB0FrWPRfmpfrwXFh jNkcCC7yKDUzybriOLHljB3lCS BlS3a5TpEzHoA8EXzwZ3EhLWMn jikgMe40oM6dDyLhAgR2DXfv U1NwxfF1GKWpzEXvZXzbQXE7W1 4bs5I4BUMnJBJpBUP0bAO4hL1g bGlnbjogbGVmdDsgdmVydGlj RZgiIHyxJ626WFQmaRxlUkDwGJ luZyBEYXRlOiAgMDYvMDgvMjAy MzwvdGQ+WHAwPLE4vGikRHQq nZFqPZwcPd0mkAdakBrxYA5vHF FoerfbDCEziC2hGENtvJMttQwg SH2aXXXnjnhdv102McBkMEU2 HTAibRLpR6CnqZ2vMdWmNXOoMQ RbE6ZxtZPcMFenE636DNjiUyF8 UPZppsKjW3HcXGLmfJhrCcY9 m3U2Mw2Gp8NgeezdP6FgsEBmPy YnMgnjKAy2O8PpDzxmuSX+PC90 HWUoLY76MBw7KRM2gTmbCLyv GYAiD6KodK9gZqKjZBQnDHAxVw c+PHRhYmxlIHdpZHRoPScxMDAl JaYndBxgOJ9fGt0lNYJiUSCm lKazuFErFvQco3ttZDRzNZjeWE 8duMozF2MgiRU6YFYjb7l7Fn16 D33kW5TgkZQ+HZQpeXN2kSC1 cQ1xKyXbDiL1XUcnL288AyJcrX SbDfjqn7xop7cgrUu2PeH7AMKp koPteLsbJMH6h1OsFy11G43r IHdpZHRoPSIxNSUiIHZhbGlnbj 1keB4wKo3+QIGspHV1rGD9cH2i GmApHgY2ORhoS024TqOygYYz Wdxio0mku9yubAr5KgTgCWEkua CyuJjrSZJ5f4XjSi55X5MalHhc z3VlYqt2kr15jUPod5Z3uBY3 F0VbLXSsnjvvqLJpjLdnVY7cOM MmkwjgZVWleS2dYUXhB8f7KvTf VcN7CRfpC3KfynP4OQQseZOn GHQasBVHcY6hadsyg9knmekmWo SrAUZsIEd0RWr3RRUveQfsVbWa LAA5FsB2QMM4rVLrmP1btScr ewutaB2mLor+DCY3eIGriMXATC 1lOjwvdGQ+GBNnOHX2qFjhZYup JXXfkN1jAJIaH8c5HaKlJvB4 YMgxR4KjypX9IQBpkPWmCEIrxM KDjM9cbddzv7ohtcyoXuOnOZCv ZTo4TBi4NRNszEhzJoJjHTE4 FkK0YVA5oSSkuH9mwUgspyqxtI 9wOyc+UfvmtRroBLB9NEi8W9Nk Nmi2PKDkrYwsVL0tvJZjGHta Av4fnZmdmLroMA0gDXJsmxjri6 55RiRak4oyYGFvaVTmCQlvUEG5 Y08tn9F7ITJkCYYcKUV6hPI1 kE3ulXtexewhvLCgdQivskXbiX gnAHbkCTfzH667OLAdpTsuJqAu BYa1K3VfMjl9DSVcuIphTX0c iPRbGZmyWj1xnPlvsOdjNL2nIC Kgbbwmk057OoHgw0dtXEFvzTGx IQnePHM4L75dp6G4GPCeSXZg SQA3nTZ7hZ8sbObppwzxrAIdzC mzhrRmyTcxJAmpHHgtI346ZRGz tXwnKbDfmOm4G4SmQfs7OJBl mEvwEG4cnZTwYAavKc2ilUvijJ mpLI3kBTMkrcoja735UhYel9zc WHVaiKBpDQlvPDT1H60gd2Y1 FEPxERPoNFB6bTV4mF4mjWwqwh ogbGVmdDsgdmVydGljYWwtYWxp N860NZVukQdwWqDtcAvignBl FMqpNXy4R6NaSpgrpSS+PC90YW UaJS29nQQmnGZil9wjiRt8EdCl CTLzEWL5dJvfVXmks6VaORZj W64okGAxp9Y9VKOkxOslxZLoLu PzoYY3bL7kHOmyohcha4ccnzbj Oszib2zjgd38wJ64U75xJJnf OGLzAMWkZMNmPWRbrBhkqm6quZ 9wIi8+BXHolKF3wKU4eG4aSXXo QyU9SKtmP743TqKqrAKcNfoa r6tul0vodQa7RmW9EBMqbkSxcK blNJR0m8RdXy28P89vPKhzDWRi KSUcCKTgMNNxdDnkoi9euZ6c Ii8+GDSwoRS8gNV8iD3nKhPmMd F1YMbnW930RoDisWWsHzfkC83u D5JeaYB+VDMqVuv2EXVklEac AJ6ioDLyAPdkDi6bHOS5UkVwLr JwTDgfQ4OcQLKmyvyvuxahmFN7 KYCsFORdwV83Nf4zxXazTFFy nNIOpY0klvqbb6nxmyamVqCdHA QhZVk1AQc2FHMdjCzyIbRnKTT2 MoB2WQM9oVYxpN3clYiqfrht mZ5yU6TvKYWwnyynVw75iV5eSy RkHkP0ONgfKdy+VEhPTUFTLCBD AMWMLEHPTLF2R7OcAbc8CDVl tFicDS7qpFRiNTibHi9jjClulT ybWQ6zEEOoinalDNYdsF4vDHNo zIQvuGwbLN0oIWRscojld913 BkSeOLH2YTBpzBUhR3LguB5pXo YsPXRiGUNuA1XtcESyYTknY691 EXlkJpH4XSLktnAkW0CaVSJg fEptTvU5q1F8Ef5pXy8wVb2dCH L6AQ27JK13vZYnj5W3uKD7D6Th CDBqnpdwihlorGF5YNXdHEGi bI02oHZoBSqkLx4di9X4q094PB GnCAQyaR95Cb5zdUmsNAOwqREF kC4sbwnvt8chgoopFvObFFOj RMb4BRw1KRFcmDzhYeQzEHE2Tg W8TYG7rJFqjQ7toQligmyeuC2b Oyc+XsbfVJPoecP6D3ClFgn0 NPHkgSegOG1tdRUiLRfbKx8deY urjPstWD4vAFIaqhztMFDuwQ4a UXOpnEIwsOgeYF9lSYNaapkt u138HfNqQNQ8CMAqyLTzR2AowI 3gJzVnJMSuIGDyM5AdwBLqXSwm I511PWltZpZ8JLWqphGpQ8Wk MBMjnQvmBaI4e9H0Ui2OMKdNSV 86KS26kYRvs0Y6jMH8B7CvBRHj aqnobrwbeCN7HYRnVFXjgF42 pNTcFWxwLu2ac4B5y888RRQuAP RdkE15Nb1yxSqjAQYvdTIBaF7y yozen3buaqpsClTdSODaSVx1 AQs2OEKxwKmbAhEtNRA6WdG3CX N1vUJcaV2olHnxupmzvX1nFix+ Z1G4S4HwPfyatCB+BP49BTKf UK75dXKcgTTnx0cwlOk5BfVbOH BaCIE8kBhhBHnzv5AoDZPoM54z yXTvd1X7TVLryEjniYJqOiDe gEA0iD6bHPnogczwj7ejyzvhZd pzy5tvug35pU03O69nLPpkVYRe JSWeAJNtORFgdDiwux8ybH1a Ii8+KZQrvXH9zBU2hO1qJdYgSp Q1COslB161AvTzdEKcSbfvf1ao f8eyhGe9LkSuELWsbaLywWwr ECB7j9BnXz95J75aLXlcTKZwZS QvKMXpQTLxjGxhbl7vqU1bCy8+ UW6mi8spzu48qP98yVJ+PHRk SKP5iPqhHTxrZOUrsI6iDHwrCa V1QCPxHdXjqJ11eKGuFCxtEh2g mCqqmCagRE1oRZMvaijss715 GhSsc6zkFNDduCXdGXadZNV9Y8 2ij8G0DJSdFHPyLSB8sYF0oK0i bGlnbjogbGVmdDsgdmVydGlj SIggFDwvI449ZMXhsBxuZuBtzT ZmT2xfcmOPUS0gOepnlLQ+PHRk OGP3iMuzOUnmSOMvkH6zVZLk Q3q7MdYrAqF9EHauR2SwhxL1AU YigSUxASUkhQBNuC5pegrjn3qr iqrxIiSzIGFdSFs7GTr7ITTq pTpqBzHqSKF1XpX3SWO8pJVcqN 9mnPsdclfdyJ3bJhn+RklOOjwv dGQ+OFWfKDD8hPbzUZnxZZUw cT5tAJJyX5d8EtJxPhY8OOedJ4 DktiU2KXOcvEDnMTWisVYDuD2z qlxxw5zzyeddTsLxOTXoBCq5 XGd9CJYzjIogYuQyHEA2UgB3MV X4tIQyfA7uwIqcjlgqkB8ySgz+ TVJOOjwvdGQ+GDDpDLC9mGld OZoiZWAjuX8yNKUeX3k4UeOaJn H0MUjlE9WxxpV0BXTqiTHgDSSk vILBmC0aaqwww7xukotgDiGs UFEzZOy2TAp0AGVotNvpIhLoWM I0AvV8RBL8sWTcoD5rgJmkpfxp oZ6zIgd+COB2WWX7DO27IL83 W9BlXmssfYGklZV+PHRhYmxlIH flRQCbXXhcASXhIvDdlAgzJA1l Mm1hTYTgCJCenYzxoEApCaYv b2x (more content not included)... [facility] - [facility] - AP Results [id number] [facility] Coding Summaryon 12-12-2022 Coding Summary HTMLBase 64 YqttninbYQr3uHk+PGhlYWQ+PE 1PBNLcQ78xdSHhdY4EU0fLMV6Y VTZUJUDOOH8VRQ0fsIE8PBtcU0 VybiAv WbzpdRUmZA24MLb3JWC9yFdsZI rhxI9itYRaY1z8HwViVK19hI88 OBqnOMFzBdN1QbNqfnjvaKTg R4jqAjAelYThPoz+PHRhYmxlIH zfDRHzQMxiBOMrEeQeqZlgKF6s Oe0zLOYxZQQrcZsnzIKeIsUm b7fyYMYuZGmbTD4adMrmZ1UjzG F7HIJzu4j5Lg34hTF+PHRkIHN0 lIufBMxwn499XeVeg6egBQM0 vFOgDRwjMOV3R62cp8G6GHBtPG XuSYX1qRX9tD9euUzipnjdE9Rv lVOmSnM2FOF4eDRpzP7onBrz pmesaR3wKdj+W63QNJ5BSJNJOC 0GVxp9Y7FsZsybxUF+KN79RCUr NL88fLMxsKFss4xdmKm2AvBs PYFjLKK3gCblQMmxs7UsMPRkE8 6obVQnq5X6BECzuEkpkUUjHmKt yBK3jO0yVYhfkeuzc4xtgsfd Aautc3caru92iO90H11yLApwNB VjQLP7JVHrEXQfxWgbjd4ccG4t Ii8+VIqry9xuq0nwvLa6TqNh TKShrqHeaSjjZYS1e0GoZx35G3 XtuUsly2LxZll1xz12aBHcb3I5 eUG8YLljRGDglU5wYAnzXaI0 BHCfDpLicN67qTVqRCpuEr0iqS dsqRayAK4qCCRuquvlVWKjvO5q KMEgzURpxJjtNH1dJRFunwrq o459RnPvTMU0IYKfkMMcG4UfaS 9sDcMxTMQoCABvP5PnqOHzZKue J068BZgkHjC5TQExukReI8Jb UMEyjBtyZhV9j2Q0Or6Ed1Qrqr prHWO5OGmqJOI8ZvE8EhGsXoR6 P9RzHxs6FHJuzWglOM7yI4Gp DKFngfjirqkeoJP4FUYqEPRhrI 58gRHuEKgqKo5fd2I9y624RRNu VIEzzT69Ln0sfZtzMZTiaBZO sG0utuacf6jmgltyTrRwDYEuYF f7LKg3EZAevRpuNoMqSUT6FlE3 YPT7oDAfgL8ziFtkccxpsB2t Oyc+P67qfL5mXSG9UCQ9afzdBB LrzkYaMH55UR42D1ArMbbrjJKr bGU+VXWcmsWmmYmtAR8rKwGr a4cnu6RtWGwpT8FqHPYeKLleFc n4CICiHNL9rTK2bV6oYNGkFGrq m3H4aBF1M0AdjmSvpe7dl2sv RCWmPJkbA78udWLzj1Z0WVSrhD Y3DVFkaTyoJlExdQ68Uyw+PGNv bQdns6TfOeikh9wqw8gidQd4 VkPxNYBfdbAztCvkFAM9r1WvKk 64V16rZLruTEVtYOFoOIEqFZVv bXmmiy5asK3bJk2+PGNvbCB3 zYF0vT3aLDUyRvL3VLfuG883Qb RfhZKuWeqyv6jwg4njqWk3WyNe WQYxqsFfqTrkIMM6m1LpYy10 D25xFGznLPYwGAEuQVYxPQCsqT rzel5pnO4fGn9+TN9hq6bbzv14 hG67bRM+HPPdVVI8bDsqSLyd EUQsiY3iZQslOvG6LTIcTtHxzT 66sDEfIEblGu2uiBgwvLgrXY3t JIFuzdwci520PcHzd2ytKWYf lSXuWMcnQML9M24tj4R3IEJpDF XjQRA9hSF9mZ0yoLfpegifcEFb hTwvdeAqsMqmLHduHQjmO928 IHRvcDsnPlBhdGllbnQgTmFtZT q5M0MaCin9BULdjZhlBS6zaMQk DPhmTc2usAythPrsAM5gPUVp cvyat686McJgu7srOLNnuGVvWK kyBXN1B63ie7P8THAiXNGpINX2 xAL9cG1mgXivbvatgWZqcDeq oeNwxQjcAXphCTfiH146OMDqlW haWuXsopMyKUYaoWO9TP68OR03 nURet1K1uGI0I4RiAWQakgij pqzqoHZ0FDKhTGAffQ09Pb2ypO svUg4iITOyLBW6ZIReeHTjB0Om hI4zVuJeISFpJVUyA1YjpWZi ZVnoE052MTybRqL2ZYSamuNcO5 JxPPEjnYigZuD2u2M1Ya5CA9A0 GX15CG60rOKif3X3pEF7C1Uu QSEjujkvcqysyYM0FZYmKTVjbX 22Zj9tjNqlId5tLRNiBUU3ZIRp fXVaJ7JeyI5dFrHdMAIhVXRu W3IpbIRwDMmkX711BNgqLzF8MS McphBtQ1RoHHVwcVlsZgZ4f5U7 Os2SBIx8FU92VC24pHYpo3T0 xVN8K0KaWVPtqyirjdvkwQF4WO CrKTQndW22Fl5khJznSu9aEYEj JFW6TFSfyVFeM1IgcV2sQwEe EQAsTHLwS9ZhuVHeXTwjQ065JT reFhN0HEWsuhJqU6BlSAMlgUpm BoI7f3B7Yo4LTGChZL84EQQ3 hAO6YI86MS46K2TuUoqetKWbaE U+PHRhYmxlIHdpZHRoPScxMDAl LdCxxOprIL4yLj4kWZKnTBAd qFwfzPQvCpVjc1kkZZDeGVddAP 2zzHdyZ0ShfLS2JYWnu8v1Yw28 E05oZ3JgyZX+GSDjgGF6uDQ6 tK7yBmPjXcC9CGlqH784BgHuyV AmZqjki1ron9ibtTy9HeM3FUHo unFvkJdeHYI9l7TrDl75L23t IHdpZHRoPSIxNSUiIHZhbGlnbj 9kiK1mQa1+KKXucOM6bDX8tP2h WrYdHnH0QPkjV440AgYkuRHz Ldxwb0vje6bshOc2YwBsUTNkxi LzvNavMBG7d9JxMs52H8OxsNot r6PbCua7um86tHUks8X9wIE8 Y6NcUBHdtxmlyZNvmEuuPE7iLG FbjqzzRNQkbY0sHSJrH4d6UrOq QmH8LBlwB2WcbaT8GEOgcRRz LEegWBM4C79zj5K4GDNuWYQxQC U0eQJ8uQ2bqSifkvocnPPmfDzq neGqbPgsMUbtWCsjB126TOMc wUdeBDIyzZ1hYFXpwWYhhAttFP 5hDKDvpuyaRxKCH95EWvxeS4pI VvtNQsQAKM70VL05iZIhg3Q1 zXF5L8VbDHDpazvuekazbZP7OX YyMYClwD87yHExJSinEw7rw8P4 v787HFYzVOAzxF56Bv9aqOox UXHmzMTYlI6fdemul3wwoinkJz KbXSDjTPk2WGk9IDZisNesFpBd RSR7UzX3XSW5dMJjrF8qlEax wawpyY3kXdy+JGSbXENaVUg8IL wvdGQ+ILVgZSV0zYghULejMRBz wN8eNGNnR0o5TnHgCjR5OYnl X4LrKOHscojgUs17mK4cLsQkZa X0JPgmC6IsdcA0BHHyrVTgRStt GOX7H80dw8O2EAJlAKMyVSR4 mLW4hH8ojDjgudqreMTtmTnsia VwbJsoNHfyZMgqZ468JJCirMos Smr2QLckGLSeRV50UE74rAGg t4T3yBF3D0WzHQCauxwufvsyiW O4SXPwIPEzrV99wZDfWZpbTh7t r9O8s215VOVeCQXamW87Rz2t tChvWBKguTSRwX2gywzuo5maek qeAhRaPFLmYXj8YAm7RLOgoAuo UgWhPPV2ThT1VFH5kADlvR7m cWkecrqcvS0dQhp+TUFMRTwvdG Q+UYNhLAH9gQsyQPduWLNakS2y ULUpU8j8GqAgNsI3QWdjR5Tr YIKsdtxxEz35hB6rSmRcPlQ7AJ aeI4HjwoA3HVRquEPeCHpiRVE1 I43tf0Q5XSIqVTHhMUD8bZV6 aQ2zmAbcllzviJGehYdostCfrA nkSIczSDadV442KWUxuBmdArJf Y7JazfmhFnXQbXQvAKCnVR28 YC86NY24S0VfZeszbLVyxTH+PH RhYmxlIHdpZHRoPScxMDAlJyBz mTptZY2aYf5uIJInOKPbvOoc cRTnMeQhi4jdRLPgRQwgSL7qjA aeF9IpbVB7WBSat4q0Ma08H40h V1KdzMA+QLHiyZG6aZQ6pS0m NeHjYgK5HJyhB114KmCorZDvUh zqw9cim7mmbXc2AjBhMARpptLc bGmjXLH2h5AmWf24J06oAZgl IIUtZJSnTUXaUDBinOkehm4ifQ 9wIi8+LLTuxXA4sFQ7aB7yApKf IfD5TRxlR753BpWbeYKfBskv L44lP5YmkZA+UHTrNrz1HOQwjO vpVY3uaHOuHRmsMl1tMYU5FsXg WgAwORptT8XnQDNxlsrfjxqb xBZ2DPCjNPRpkU09Gj1hrIqkNm 1jPZGkVKX9QOKmfDWhA0IkgR9s OwFvWBNkYMFsK0AtxVHzDQjg X720AVyvLaC5JSNorzMmV1HtTY KneKhqReG6x6I0Wt1FhEzrxUDu FI8xXsSnGRn8P0VdQij2HUAk nGykBO8sxJByJPzyUj9glCmbnS xrLK9oWHXkiarhk109QnVoz3xg RQAhyIWzMYquYRU9F16fz1I1 MOOmBBXeWCY3wBZ4rJ4atEovug ogbGVmdDsgdmVydGljYWwtYWxp Y377XYSwbMzgOtSVFda8Q6Ne Ebp4OAJqnIjpFK1gkICaYJlpWy 8kdUoasVdiPL9bOZMemfjul904 EyZrs8wnUTVeqYPdQQteDSI1 K40pz1O5UYVlIUVhCEL1gCE0tU 1hbGlnbjogbGVmdDsgdmVydGlj ONkkZLpjH669YGMfxDteOz0F Qei6P6LbXmt1EWDjsAhsNQ1kjR ByESrvRb6hqBsygDsgGF1qNCDn nqake387XjTxx9wjOPSduHDj CZaePCK8R69hu1Y0JKMkPVYeYF D3hEL1dZ5guPinabbeeHOgtMjb bcVjbHgjAJnvHVvnY239MTLp cDsnPlBheWVyOjwvdGQ+PC90cj 26S3ErQvtrQsz5TJIqDYR5mOJ8 aN5zTQFvAHlow4U9vKE9V2Df cmR (more content not included)... [facility] Coding Summaryon 12-09-2022 Coding Summary HTMLBase 64 DnznextxSFk6xRu+PGhlYWQ+PE 3GQXXxN59svTCcuS0XL7rOVW5P QHENLKUKNL4YPP8lqOM8MApzR0 VybiAv BnabjFSrDM29MRm5HWO4fVohHF dfzC6qdYXkR5w2FgYjMA61pI10 BXicDGBdUiF5PiUvhxhkpZCn O7piOdRzlFMpEmz+PHRhYmxlIH uuHHNqUNzaEDCcDdKkyXzyZP9e Tc5aRIXuCEScxIqqdUSqDnQz m0xnJMOoQSpjOB9sqPdjZ0SruI R9GPVab5a9Su54cIE+PHRkIHN0 gGdlGTwmo869YdGxs6uiEEV6 gSYeHCsrKMZ1R14gy9E0IIOjLX PoRCD0bIO6bX7tuXahplnhA1Xf lDKsMrH0BRP8dHCkbC5naKrs revqzT9cAln+B12AJQ8CMLWMSF 7MFcy6Z3LxDspotYA+IL01CTWf NA44dYBsqGSfn3zajSw8GcXg JSDuPZL8jOjoYVvdk5XvDWJeJ5 8zoPSxb0F7DJWitIkssNDmBoDm xWF0cE3sCGnwdiijf4rwamlp Xyumd2rjsg62gQ52P25bKEcqFA HyTMS3RQExDZMkqZfiap2fhY2u Ii8+KRpwl9thx7qglYq8JnJf MEZhlsHkpVnmPMQ8v4EzFr14B9 ZqnRifu6BwAzc5kz29fFLee4R9 fZB8HFvfMDMvwF3aZRgzBoV9 UDZgOiUwdZ98bMHxIJizZm1svQ zgqBroLH2uYUJmcedsXMKitX4i HORhmIMaeFpaBR8xPDJybsdb h678SoYhIDB7ZEIqcJWrH1SmzW 8rWnKsSQGlMSXaC7NawFBcOMzm T687APiqHyK7PNOewgPvW5Wu UIGuoPjiYfS7u5M1Tj6Im3Vlcg biKZH2NYdiILE5XcIoLqUvAgH6 M8CzNkq3RIOkaVqrWP4xA3Bw DVVqwucxwbmpvQQ3PZEsGCEooT 80yLEkDWmoSo3ll6H7j801MIUg EIXlzP38Tx2huEhdFLFpmTZD oR7sbfnsm1qcojyhEwIfMDUwWM z3OQz6QIApvQaxYbIcLIZ9EyM2 ULA7zXHrnQ6ocEnxjbqcnH3p Oyc+U70pmD4gNLA7YIL9buhdTR SiptSbWB24ZY81P1RdSpnxiEIj bGU+KOCnxnSngQokVO3xCzAv v0maz8DkHNnvT8VfDMJwVRzwZa v9DKVkVVI9gEX7wF0rOUZkAJtz j9M8lYP5C4ScltQala4mg8br RVRmXQuiI73bqZLbr5P1IIEknH L5XEAkaVpfRbPwdY14Fcz+PGNv eXieh8RxLtujb2puu3tanVl2 GiPjVCQvdqQbbGmpYMS6q4WqJy 14N48nVPleFQAzZPHcDRPgUXGw jUlsrj1ojF6pPz8+PGNvbCB3 qLW3aU7xIFVkJuH8KRvpE353Iq LvkQUkVtxew1uaj3fgvKo1UsBa DIUunuGdjOfiWXZ0a7WeDe11 I29gITclGUBxGHDgLLPdADSblM mkxr9mnV1pDn0+JE4sv2nquh66 tC25nHJ+TQPwHEA5xAidMAzp LZGpiZ7tKMarZsX5VQExHgBcdW 88xDDkFYgsQw9wxYhhbMvhCJ6k ZOZrxnvuk620JmUmt0lyXSPu nGKiBGnxVLZ4I90ah0I6GDBoOO BfGCK0zTA4pU7quRfgtcrimHHu gFsnpgOfdItuDMexUEkqY287 IHRvcDsnPlBhdGllbnQgTmFtZT d2T5IiKol6SCDfsIchHM3ufHKy JTamBr6cpTgfkRsaLT4xDTUm mktja805OiLzu5weSPPyhVQkAC yePNQ8M97zx1P4KQDzKKHkSCJ7 tUP0fG2wePmyreytjGEujEml ljUdnRdgHKxvUOrkU258ELDsnD skNcXkpxKkJSRjxSH3ST53DI55 qZIpp7H9nIG2I1CmQQMmbequ fozwbZG1UAWjEDSosU87Wm1eeQ yhMn0fDGWeEEE1FWEsqTVzP2Oy pU0dUrTqKZOePTRvX4XvaBLn APuqJ573VCywRlU9TGRdoqYlH7 MeJNCfuMzyWxV6x0P9Yl1ED8M0 DW87NM25mPTfj9K0vWQ6D1Ks NLLaijdebegvzFU8SJYdKBVciB 17Ju8teXyhMj3oPTBxJFG1MBVa pMChW7SkeK7dFlWqWIYvKAVr F9AmdEXbWDedD626OGrkDjO5IL JtirGaH4WxORQsrOpfSkK2z8A3 Rd4ACWx0BJ84GR81kXQzh8I0 rND0T8GmNDKbnyhyeykakRZ7LR NaFXKlbI74Pq4oyDigYo0wWLBz OLU5IZAdnFPtW2XrnB7uCvVj BTUbTGThK0EzfKJdQEtaC535ZO ejKeF4OAAxohAdR1AeDRUdbXdy IwB1b3T8Xg8GHCPoEY10LXH2 qBV3RC31NV29D2SjZssooVSfoC U+PHRhYmxlIHdpZHRoPScxMDAl UsTwrFtjWC6eWg1kZHHsCCLj bCymtEXkLaSdk8lkOUPvWTjzXB 7hyRojW5RykQP3RTEuj3z9Su04 X17fL4RfnZA+HLXiiLW7zLE3 bV4yXoMcDiG2JKpgP686PxFkwN QyVsppx4cen8psePd6PmA8GIPz bgAhpRgmXMN5e0NzPg76M03d IHdpZHRoPSIxNSUiIHZhbGlnbj 7ltZ4gBq0+EHNhtRM1bOM9kN9a ByDtLuT5POylK277CeXfnFBh Bbevq4asy8onxHb8NoKxQNBgiy IfrYsnPQG8q3YjWt38W8NarOzh o8LrHyg7qy88eHYmc3K5nQE8 E3BwZHNodcvpfVXvqNndIG6fLZ KaygqfWCCxqQ4oWMXrW4d2AdHj KpA8WVuvR7YjpoI4RIIluSXa BFrcQDY1Z25xt5Z6FGYoDWCoUU W0vPZ4wH8gzQqblreimARwkEhl dtGoxNgtEJhcHJgeO233YRLs oKfkVTLyvW1yBWSfkGNqpJdsNJ 7sHNZtoxqzGtJLZ03FBivnS7iB WfzQGgGOLR67ZN42mJPvk7R0 wVF1T3WvYRWzjqpmlgkwaGJ3KG CmVBRdhZ42lYUkPBztLd4ku1T2 h024HSQhFPTwwW62Pi2qhEkm STTaxVSZqM2ykjfcu7zwiguhEz ZaAKFhPVp0ZCy9RHUskAykTaPn LED9FzR6KLY1gBQkrB0hqUjj herlmQ1jJjl+MEIzKSTyERd8LR wvdGQ+CFNoEGD8tWpcFFprXPCj jY0fAMKtB9l5UlKsNmM6NKpz E7YqNIOzlblvNm00lU8ePhBrQx Y9JAvrO6AwyeB2FNPltZGlWWve ZJN1C21pw9P1ZVHbVLRhXSZ4 lOX4zY2yfAviclzjkJMrxReidb UmlQqzBJpdJSzuG243DEWopCtt Ygg0IZzfJIOcWM66LL66dBCo v9O5yPJ9R0GrORFstlxcujqatZ H9USXyNSFppR86tZVhZIouUx3i l8P6p462QLHjHSKigC43Yk5i dAhdIODnmCIGcW5wofdqg0hdxo lqSfEjAZVwWJg3RBu9PYFbkBtr UnPhPPA1AxN3NMC6rTTawZ9g lIkphxzjcB4fGjb+TUFMRTwvdG Q+ONEiROP8rVmoTHieSTStkV1u QLDgW1b5DxZfOaX1LYrfJ6Rm WJAazdxzHk02nL8tUuZtYdR4BR lsK1HiiaG4CAQdbRRgKJdrSWR9 G36mp4S2XTBiPHBdJWA2vPW1 rQ9qmIrlgwjlnUNchKgynjHgnQ svKNhlYFoxE940WEDimQuqRd6P XW82PL06C3JgRwdawDAxfSK+ PHRhYmxlIHdpZHRoPScxMDAlJy TfzWjlFO9zAz8wZBOeKAXvqQly gVAkHpDjq2xxTPHpHDjpSR2v xAabM1TjtVA4XEIaw2m4Jl83H0 5nH4EhbIQ+AMOulFT5nVX1bO1m KlCjJoA0ZLqgX785UoCriLKl Glxpe4wmk0xgqCr6SsWeIWJzmm NwlTicZIW0v1XjPy67R47lVMfu RUReHNIwVTUkZBDjeLktmy2y iW0sJz8+SKVyzPA3rHP7rN2dHx DfAhX0QXilM944OiHukAThHelt B85oN0RuoEB+XSJkGuq3YIWr jEkpLD2vuEPnKHgwWe6nQTN4Wy PsDmVeWFhtM6UrNFJuooxewxbm oFH0BXGiZIEgjS01Vm6xwDvg Hu2iTQYuMXS6RBCiiAGdI3FhtU 3lIsFvFVBgCVIgR6ZkjRVcDIlq Z809EIdjBoH5EVXcoxEgL8Lm LMAtdVhpRcK0d5W8Yd7TvImpcQ TtYY3bMaIpNCb5A1MuTxk9QJJr pKrqIL7abFYqWVgfEq3mkCuw cJrlHA9nWHWprfpim461XhQlq6 jcJXNwsLFlDSjfALP1R16rc8S2 TQGsWXNlUUR4nLT1sU9etZom bjogbGVmdDsgdmVydGljYWwtYW ddK501NTRifBpmZcSSCgr0R5Jc Hxi6XCJygPrkHT7tjSQkZPoc Bz8flQkrgYnrEK0mODOjzmpjq5 50AmCsp9bwSYXxwYOdSKsaXAX4 Y41hj5V5DMNxVPEySEU6mAR8 pG3qzAziylhrzOIxyZtadhWxmB muKFyeLKqoS482VJUkqEhqHt2R Iat1F9YlSpi0DRVaoVgdOD6c yOOyXIfuJf1nvQdvvIibIO7uPR Qhghyfh460BdFbb0tuXOIogTYx SCujBYF3D93xt0C1FYFiXWQj QST4gIF6zN4ssUrxewikhDPsdH bnokNtjKcqNBziPMroL815JCDo cDsnPlBheWVyOjwvdGQ+PC90 zg30Y5HfNdgjPhu5FBIuYYA8kR H9rX9dXHFpLAnel4K8bVN6T9Ij unMbvo3qf1etXMXcOXcyS19f bGF (more content not included)... [facility] Provider Orderson 12-09-2022 Provider Orders [id number] [facility] Oncology Noteon 12-01-2022 Oncology Note RN placed coude cath eter via sterile technique. Pt tammy well pt stated little painful. No urine noted coming back into harrell bag. RN ask for assistance. , aerospace medicine physician catheter further on assessment bright rich blood noted coming back into harrell tubing and meeting resistance. Harrell pulled. This RN called Dr. Cardenas office spoke to Marcy his Nurse. Dr. Barnhart would like dhruv held today. Pt stated that they have [...] on: 12/06/2022 09:17 EDT] Joseline Dye RN [facility] UA w Culture if Ind Standard on 11-30-2022 Breakpoint UA [facility] Comment on above: Performed By: #### 1 [id number] ####[facility] (DEFAULT)[address] [place] [address] Color (U) Yellow [facility] Comment on above: Performed By: #### 1 [id number] ####[facility] (DEFAULT)[address] [place] [address]35 Culture? No [facility] Comment on above: Result Comment: Resu lt created by rule GL_MAGR_ADD_[email or web address] Performed By: #### 1 [id number] ####[facility] (DEFAULT)[address] [place] [address] 01233 Glucose (U) [Mass/Vol] Negative Normal [facility] Comment on above: Performed By: #### 1 [id number] ####[facility] (DEFAULT)[address] [place] [address] 77834 Ketones Ql (U) Negative Normal [facility] Comment on above: Performed By: #### 1 [id number] ####[facility] (DEFAULT)[address] [place] [address] 84157 Micro? Not Indicated Invalid Interpretation Code [facility] Comment on above: Result Comment: Resu lt created by rule GL_MAGR_ADD_UA_MICRO Performed By: #### 1 [id number] ####[facility] (DEFAULT)[address] [place] [address] 73294 UA Bilirubin Negative Normal [facility] Comment on above: Performed By: #### 1 [id number] ####[facility] (DEFAULT)[address] [place] [address] 22306 UA Blood Negative Normal NEGATIVE [facility] Comment on above: Performed By: #### 1 [id number] ####[facility] (DEFAULT)[address] [place] [address] 40339 UA Clarity CLEAR Normal CLEAR [facility] Comment on above: Performed By: #### 1 [id number] ####[facility] (DEFAULT)[address] [place] [address] 21877 UA Leuk Est Negative Normal NEGATIVE [facility] Comment on above: Performed By: #### 1 [id number] ####[facility] (DEFAULT)[address] [place] [address] 15865 UA Nitrite Negative Normal NEGATIVE [facility] Comment on above: Performed By: #### 1 [id number] ####[facility] (DEFAULT)[address] [place] [address] 61267 UA pH 6.5 Normal 5-8 [facility] Comment on above: Performed By: #### 1 [id number] ####[facility] (DEFAULT)[address] [place] [address] 26452 UA Protein Negative Normal NEGATIVE [facility] Comment on above: Performed By: #### 1 [id number] ####[facility] (DEFAULT)[address] [place] [address] 88200 UA Spec Grav 1.010 Normal 1.001-1.03 5 [facility] Comment on above: Performed By: #### 1 [id number] ####[facility] (DEFAULT)[address] [place] [address] UA Urobilinogen 0.2 mg/dL Normal 0.2-1.0 [facility] Comment on above: Performed By: #### 1 [id number] ####[facility] (DEFAULT)[address] [place] [address] Urine Source Clean Catch [facility] Comment on above: Performed By: #### 1 [id number] ####[facility] (DEFAULT)[address] [place] [address] UA w Culture if Ind Standard on 11-23-2022 Breakpoint UA [facility] Comment on above: Performed By: #### 1 [id number] #### [facility] (DEFAULT) [address] [place] [address] Color (U) Yellow [facility] Comment on above: Performed By: #### 1 [id number] #### [facility] (DEFAULT) [address] [place] [address] 72551 Culture? Not Indicated Invalid Interpretation Code [facility] Comment on above: Result Comment: Resu lt created by rule GL_MAGR_ADD_UA_CULT1 Performed By: #### 1 [id number] #### [facility] (DEFAULT) [address] [place] [address] Glucose (U) [Mass/Vol] Negative [facility] Comment on above: Performed By: #### 1 [id number] #### [facility] (DEFAULT) [address] [place] [address] 95483 Ketones Ql (U) Negative [facility] Comment on above: Performed By: #### 1 [id number] #### [facility] (DEFAULT) [address] [place] [address] 19036 Micro? Not Indicated Invalid Interpretation Code [facility] Comment on above: Result Comment: Resu lt created by rule GL_MAGR_ADD_UA_MICRO Performed By: #### 1 [id number] #### [facility] (DEFAULT) [address] [place] [address] 50394 UA Bilirubin Negative Normal [facility] Comment on above: Performed By: #### 1 [id number] #### [facility] (DEFAULT) [address] [place] [address] 81184 UA Blood Negative Normal NEGATIVE [facility] Comment on above: Performed By: #### 1 [id number] #### [facility] (DEFAULT) [address] [place] [address] 62056 UA Clarity CLEAR Normal CLEAR [facility] Comment on above: Performed By: #### 1 [id number] #### [facility] (DEFAULT) [address] [place] [address] 96659 UA Leuk Est Negative Normal NEGATIVE [facility] Comment on above: Performed By: #### 1 [id number] #### [facility] (DEFAULT) [address] [place] [address] UA Nitrite Negative Normal NEGATIVE [facility] Comment on above: Performed By: #### 1 [id number] #### [facility] (DEFAULT) [address] [place] [address] 26762 UA pH 7.0 Normal 5-8 [facility] Comment on above: Performed By: #### 1 [id number] #### [facility] (DEFAULT) [address] [place] [address] 71964 UA Protein Negative Normal [facility] Comment on above: Performed By: #### 1 [id number] #### [facility] (DEFAULT) [address] [place] [address] 68796 UA Spec Grav 1.015 Normal 1.001-1.[address] [place] [address] Comment on above: Performed By: #### 1 [id number] #### [facility] (DEFAULT) [address] [place] [address] 90290 UA Urobilinogen 0.2 mg/dL Normal 0.2-1.0 [facility] Comment on above: Performed By: #### 1 [id number] #### [facility] (DEFAULT) [address] [place] [address] 62026 Urine Source Clean Catch [facility] Comment on above: Performed By: #### 1 [id number] #### [facility] ([facility]) [address] [place] [address] Coding Summaryon 11-22-2022 Coding Summary HTMLBase 64 MnrvnteqTGh4hTp+PGhlYWQ+PE 2CQEZsL01zmETeiH7SH4eVRD4B JMZCLZEQQV1FXV5oyPR9DXtzD8 VybiAv RvbiqCYtYO91PJl6BJA4iGwcHX ryiR2pgBVwH9b4CkLcSM30uV38 XYkrCSAkFqS6JeOhufnkmMAg S4ivOwXixORhFrh+PHRhYmxlIH wvDAPnJInrYWDhEdKenWeoSO5p Op3vFASiGTDhgAzlyIMvUlQb q3mbOZHrSMyuGR5ycWncP3SzlJ G4KHGge5x2Mu86uJR+PHRkIHN0 rTxmBBkrr673ZuXxs3juUDL0 uHQgMZjtNLX0R92zh3T2TYJqZD RqCTV5nSF1tF4nxOwjqoxmD1Cf hLIiBmD8YZP2mQTznT4bjGyn iufsmR5yEbd+Z03AOE4YHLSXUC 5TJgs1D2DiUkbdmED+OS19SODj MC70zHFjcJIwd1xygDq7AvCu WYDjRTY1iZncQHeeh8NrCASfV0 6alUFfz6X9VSTmaEvjpXYiCeHy rMH3qL4rQGnomoccr3kszezi Kmisy9zojg91tZ56A58jWFfwUK VyHJQ9PKVlBGEvoFqqae9axD3e Ii8+YGbiu0uay1pikIh6LyCs IZVfwqMgvFhqNQL2b6CzBs59X8 EajLtdw1MdZfv0mf05wDLjw4I5 nNV6AVooRFDcuJ6nBSkdBjE9 XZIyImOwiE54mUIuYLcsBk0waD cktTpuKI9nLOUjyprxNWZdbG7p JHYirPIasUeoQE5gNAQdgqnt w825PoRyEZX0AWLhaRBzZ9WfwL 7yTqWiXAFnWOCrH7EluOUaKIhv B831HVfoQbS3MJHybpGlJ4Nz HPJgmTljXhB6z9H0Lp3Lh6Stcq cwJLY0SDtcTFH2VgF7ZhJwIjQ6 S9AwTpg9FPEwfBucWC0oZ8Yp QQZkyibchwcexFE1QJFsGXFadG 86zQRgLCsiLf4ks9L3v376KHAe WTYgvZ86Xd3mlLclFZZacWEZ fG2hlphtq6jmigpnPyEnYEUjQF j9IKr2WVKbkZyhTnSzOFZ6PsF7 WXK7gXGsmI3dqTpwhmgphE7q Oyc+H32xpS8mJLZ2MNM1aiwkHX EvduXnYP72OW98N6YwXdemfTEf bGU+ZUKwshSsaHmlCN2yWlNt o1rfn8NeMRwrG0RbAMGfDRdyKv i9RSAkBVR2uZE9mE0dOUJbVLrt u2G3vGX1O6BwndSrnm8cx5cz SYSzDHqjC04ruOFtz2T2KDNdnA J4NFMdbXsvKvVxdB62Qlr+PGNv fIyvc3WgJlhaa9kem6rujRx7 CvIdXFTvoiVcpCvuAQU4k1KfXj 63H62fHRgcIAMcPIDiXLVtSHCx fZmchy7woI8fLg9+PGNvbCB3 xHK3hG5gRHPmMkB5AOfqC172Kz MswRFsOvyqk6exp3qajJx0TwDp RJYwxiYphNnjAPR9v7NmQf36 N76xTNrlLBBlXXLzZUAgHUWhjE bapa1dsY7mYb9+CM3aq4khxk18 iD01lAJ+NNHuENH3eDeiKTng QZNdvQ6gUNuiHhJ7FUGdWjVlsM 12jKKvDFkqZf1nmFdyrOrnIT7k XONaimevp048WhMcx4aqMITa mJKfNAfmBZJ6Z30ak2B9MCNsYW WwVUB8fJL3wF2hrCpadxeiqSWt eQbujfGfiDqzMSslENhfZ365 IHRvcDsnPlBhdGllbnQgTmFtZT c6X9SmAiy5MHEdjAplOA0bmIJm OXmiOn1kpLggaXhhVK4wFZDv njorg511NcEvy0phOFRabCRuHM pbKXD2Q80la6A3DVUlZEGoBRZ6 oCL2tZ9anRxlnjdjuJRccHhs ioGdjTpuFYzcEUezK011ACHrnH ybYbPvmxFyBGWgtKK9NK28RS66 iPUyw2G9gOM2B2VyWZDohpsv lhgncLY2SERiTARvgF52Uf2omW aiJc3gUFRpJES9AWLnbBScR5Dv aU9iSgBsXKQbOWMnP6SdbSKw DOgxD009YSioQuW6CSDudzCnC9 VpSXZzmCvuAkG3e6N9Oq8ZE8L2 XC08UH38iJVai5E5nUZ7J3Vk QJNzbkvbhvydoHV1TUQkGXNicY 57Wf5dcDekXm1bUOVrZCI3WZZi vCMgG7IbwJ1sUrOtLJYwDSHa H2RetTYyEDbkN384CYrtEyC4BO FfltPwU7ElZABkzZqvRiP7b6M3 Wd3XLVb8DC47NQ65iYTal3I4 pNL3D7XhWWFbulxfdaqzdBL5CT CxOQVhcZ33Qi1veSstDe5jAKYl FJT6DUEtjWKiX8EhpX6zJhXm LUBiKGSwA0ZyrJKiUUhfT379IV jkEsB1NFRuaaPsH7JhDASyuFyi AxU8h6K2Sj8OKIXiNX00QZQ9 mBC1IR34GD59K4OuChlyqJNzzV U+PHRhYmxlIHdpZHRoPScxMDAl JtDciDmvJO8vUk8oWVPfRKAl cKsvlZTaJqYkn4bxXEFuDIghJV 8vvZbpY8JsgRB1KAKbq4p4Yw10 W90iD2GhaMD+WRUueRR8sOH4 qI0hAgOnNrL5MHtqN685LgNjlH MpMhskc2thp6fawAd7XcM4ATIg jbEauZodHLU2l8RpTp91H45r IHdpZHRoPSIxNSUiIHZhbGlnbj 2tdI3rNy6+IRBxtSC2rQV6wE3g KrRvWdM3YTmcD269UeIboYSu Cujuq0tfy7cfrBj4CuLqYKCjtt EroZqaABJ5d3QvTw35X0ZcrUbg w2OrPoz4yo56fAMwp2B1tEC6 E0SsYFKlisujxCDxsEeoER7qHU IutpqcGBJhvX2aUTOhR0w4VuFd BpR7PXqbO1WqurN1BJAcdLVs BHkbMQM6A05aw5D2OYXdCZHjNL J4uSO4qM7ccWpwwiihlOGljBob sjRwwYlhRZptTYpgV361QKYh gGohTFXxzF2yIRNqpISnrSqxRR 7bTURfyelbOsCYK47AMjypK5zI JrzDAdZCTK17YC78wSJfr6V1 kTF2B4CpANJlomewmifaoCI5HG UnAPCtqL57rPQgWNpiUp8kn9L3 l419CGEmWCOyvA45Pj2bxWyo BHZhqTWXcM7ortfel9pygrdoGi MeUMMrSNw3DCx5HUDqdEhaUxJz ZTE8MiR5WVE5pUDdlE1bdLzn qmiwqM4iYha+CNVlOFOdTHs1NV wvdGQ+MEDdELC5wImiJYvzEROr gE6vOYZxV4p4ZtZzBiT0FKet Z3KlDDNxyxwnYm63tV9sAcFqRs V7TYlaC9TfpnU8ZQNihTSeCSni RTB4G74td8G7XKAnAYOpFAU0 yKO1sW7fcIuiqgfqmQPqxUjzhx IssDkkJLftZBmzF608MVZgzCwd Eam8EJneIMZbUD35YC75yEJs x7M3hPF3V3WsJSHnwiysspvsiX Q5OKCfJDKnrW66nYEaZOcyOj5s m1Q9l258DLMwZRKseR15Rb0r aYleEYAlmKIXpQ8ubtvgp8qkzd fmOmJvUXNkQZa4CVh9NWEptYxi YzWpHYG8TwQ1YMJ0rDUfyM2o yGmleieqjH8rJbg+TUFMRTwvdG Q+SHPpSSK1rDuvQAwlHLNutM5x QYAdM4p1TzKiRmL1NJsfD2Ey EONihsonYz70gF6yTiCoLpU6YP vnC4CoxpM3LHEepJUyHZrjYLS8 E85cm6O3IUXtBSVrRBU8bJV2 hN8clPurmnbjbVZvxVkkmoMwdG rmGBhrMDgxK798IQXofXgsKnUx B5EupoapUvBIqYQrJDPmGU76 RC11BI90L2ZrHkyxeGFrpJH+PH RhYmxlIHdpZHRoPScxMDAlJyBz mJuzXK8qBl6bTLAtQCRbuRst zRDxQjVio5zkRLJzIDlzBG8saU nhD9UyoNO8SYBjz2t2Vx07Q55y V0DphPY+AGVyaPY2tRH5gW2d ZlApDlT5HUakR189GoRhaXJdDk bop6fyp1tmoPx9EfMlRTKqekKv yGxmUML8u9IyWd25T06lFNza ERMlMLYdZYVzFLTuyByvmz2svX 9wIi8+MVRarSL5jGS0vJ0qYaUu YfH1KHsmU198FcXtcDXjBigv O63oR1VjvQX+TXJfKpd7ZUZwlV tgXF8bdGGoULeaWc4nHXO9LpTj GlAsCIdhA8LsWTQcfwnnfngy hQR8UWOnOKEjnP33Zi3zvDjyTw 0cQPWcBAZ3TWYroNWfA3DefX7c KgTaCSWyOLDnB1UoaULeBWxp B801GTtbRaH1BKLjfhNaS8ZiGJ UtuGnnNjL1q2Z1Fo5ApGuyuKMe LL7bIxFsWQl4Q2WkXkn9SVLu wOzeOD2poMWuKIitNq0tiDwmyQ nbQB8mITOgmftuk525KqYop6qd ZLUhwGVrYJnnUXI1P14ui9S8 DJRiAVDpHGF8zYM7wP5osFqhoa ogbGVmdDsgdmVydGljYWwtYWxp Q596SDEkmZudFdRNEpl1P2Kb Kvz8UHMuwLtiPM2wxNTeUUszGf 7xwMhkjWvkNM5yTWVkzrvdc432 GfZdi5nhEFCpmUJgYThpMAA3 D55iv7X2YLPoJSQwAAC9cPD8nX 1hbGlnbjogbGVmdDsgdmVydGlj NOihUPxrL775AUHmgZghZs4E Sat7G9JhEvh0TEYfuVasCE1xxP GpIVmtMh3esKqncIgvBR5bRGUq hztww340CyWku3yxTGPxzWJe RKfePWL6M41tw4H0RPVrIMHlYI Y7rVY3oQ7ysSmzgkqanVIulMez muIorGaxXJafKOgjV981RKWq cDsnPlBheWVyOjwvdGQ+PC90cj 47J6CcUjaoFpw3IASaGRT7yNC0 fF6kGTQzYBwjf0O3zMR3B0Qp cmR (more content not included)... [facility] UA w Culture if Ind Standard on 11-16-2022 Breakpoint UA [facility] Comment on above: Performed By: #### 1 [id number] ####[facility] (DEFAULT)[address] [place] [address] Color (U) Yellow [facility] Comment on above: Performed By: #### 1 [id number] ####[facility] (DEFAULT)[address] [place] [address] Culture? Not Indicated Invalid Interpretation Code [facility] Comment on above: Result Comment: Resu lt created by rule GL_MAGR_ADD_UA_CULT1 Performed By: #### 1 [id number] ####[facility] (DEFAULT)[address] [place] [address] Glucose (U) [Mass/Vol] Negative [facility] Comment on above: Performed By: #### 1 [id number] ####[facility] (DEFAULT)[address] [place] [address] Ketones Ql (U) Negative [facility] Comment on above: Performed By: #### 1 [id number] ####[facility] (DEFAULT)[address] [place] [address] 51021 Micro? Not Indicated Invalid Interpretation Code [facility] Comment on above: Result Comment: Resu lt created by rule GL_MAGR_ADD_UA_MICRO Performed By: #### 1 [id number] ####[facility] (DEFAULT)[address] [place] [address] UA Bilirubin Negative [facility] Comment on above: Performed By: #### 1 [id number] ####[facility] (DEFAULT)[address] [place] [address] 09655 UA Blood Negative Normal NEGATIVE [facility] Comment on above: Performed By: #### 1 [id number] ####[facility] (DEFAULT)[address] [place] [address] 04146 UA Clarity CLEAR Normal CLEAR [facility] Comment on above: Performed By: #### 1 [id number] ####[facility] (DEFAULT)[address] [place] [address] UA Leuk Est Negative Normal NEGATIVE [facility] Comment on above: Performed By: #### 1 [id number] ####[facility] (DEFAULT)[address] [place] [address] UA Nitrite Negative Normal NEGATIVE [facility] Comment on above: Performed By: #### 1 [id number] ####[facility] (DEFAULT)[address] [place] [address] 04772 UA pH 6.5 Normal 5-8 [facility] Comment on above: Performed By: #### 1 [id number] ####[facility] (DEFAULT)[address] [place] [address] UA Protein Negative Normal NEGATIVE [facility] Comment on above: Performed By: #### 1 [id number] ####[facility] (DEFAULT)[address] [place] [address] 70189 UA Spec Grav <=1.005 Normal 1.001-1.[address] [place] [address] Comment on above: Performed By: #### 1 [id number] ####[facility] (DEFAULT)[address] [place] [address] 83471 UA Urobilinogen 0.2 mg/dL Normal 0.2-1.0 [facility] Comment on above: Performed By: #### 1 [id number] ####[facility] (DEFAULT)[address] [place] [address] Urine Source Clean Catch Normal [facility] Comment on above: Performed By: #### 1 [id number] ####[facility] (DEFAULT)[address] [place] [address] Consent Formson 11-11-2022 Consent Forms [id number] [facility] UA w Culture if Ind Standard on 11-09-2022 Breakpoint UA [facility] Comment on above: Performed By: #### 1 [id number] #### [facility] (DEFAULT) [address] [place] [address] 05620 Color (U) Yellow [facility] Comment on above: Performed By: #### 1 [id number] #### [facility] (DEFAULT) [address] [place] [address] 64726 Culture? Not Indicated Invalid Interpretation Code [facility] Comment on above: Result Comment: Resu lt created by rule GL_MAGR_ADD_UA_CULT1 Performed By: #### 1 [id number] #### [facility] (DEFAULT) [address] [place] [address] 92759 Glucose (U) [Mass/Vol] Negative [facility] Comment on above: Performed By: #### 1 [id number] #### [facility] (DEFAULT) [address] [place] [address] 28552 Ketones Ql (U) Negative [facility] Comment on above: Performed By: #### 1 [id number] #### [facility] (DEFAULT) [address] [place] [address] 10117 Micro? Not Indicated Invalid Interpretation Code [facility] Comment on above: Result Comment: Resu lt created by rule GL_MAGR_ADD_UA_MICRO Performed By: #### 1 [id number] #### [facility] (DEFAULT) [address] [place] [address] 26152 UA Bilirubin Negative Normal [facility] Comment on above: Performed By: #### 1 [id number] #### [facility] (DEFAULT) [address] [place] [address] 92489 UA Blood Negative Normal NEGATIVE [facility] Comment on above: Performed By: #### 1 [id number] #### [facility] (DEFAULT) [address] [place] [address] 04238 UA Clarity CLEAR Normal CLEAR [facility] Comment on above: Performed By: #### 1 [id number] #### [facility] (DEFAULT) [address] [place] [address] 82877 UA Leuk Est Negative Normal [facility] Comment on above: Performed By: #### 1 [id number] #### [facility] (DEFAULT) [address] [place] [address] 13699 UA Nitrite Negative Normal NEGATIVE [facility] Comment on above: Performed By: #### 1 [id number] #### [facility] (DEFAULT) [address] [place] [address] 73162 UA pH 6.5 Normal 5-8 [facility] Comment on above: Performed By: #### 1 [id number] #### [facility] (DEFAULT) [address] [place] [address] UA Protein Negative Normal [facility] Comment on above: Performed By: #### 1 [id number] #### [facility] (DEFAULT) [address] [place] [address] UA Spec Grav 1.010 Normal 1.001-1.[address] [place] [address] Comment on above: Performed By: #### 1 [id number] #### [facility] (DEFAULT) [address] [place] [address] 87049 UA Urobilinogen 0.2 mg/dL Normal 0.2-1.0 [facility] Comment on above: Performed By: #### 1 [id number] #### [facility] (DEFAULT) [address] [place] [address] Urine Source Clean Catch [facility] Comment on above: Performed By: #### 1 [id number] #### [facility] (DEFAULT) [address] [place] [address] Provider Orderson 10-31-2022 Provider Orders [id number] [facility] Coding Summaryon 10-20-2022 Coding Summary HTMLBase 64 NorfzozgEWe6nFx+PGhlYWQ+PE 9YDGWnS32geWYiyI6UU8lRTH2Z KIEKSASLXZ0EBR0fcUU3GJjkX0 VybiAv MypctOHqWX59GIy1HHC2cSfmPT groR2iiESvA4v9OjGhOU66zA16 LVyzQSKhBrV4MmLrnwcjlSBd R6wgPnMqwLCsPcl+PHRhYmxlIH zpQTViFFwrMQDuKaLtcVsdCC2t Sm1eXZDcZCPyzQuqcCViXuCd w3yiWVSgDThgGN0wqQmgC7SbbE H3USXxs4j4Kp98zGF+PHRkIHN0 nFffJTvhu009WcDxc3nxZQU1 sXFlLTjpSJA7Q67rs5F5DEXpKO VeJEW7eXC9mN4jvSjerdmqR7Fo rPEfArS1EGZ9pPHxyE3whNcf uoddpB8rKkl+K47APV9ZHFIHBE 1TYit7J2YlUkeahFQ+JW07EPYh DB08kNYevCBcy3mguIt8AlUz UVIiTKI0pAivSBdea8KxLFIlF6 2dhUNng8K1HDNuoYkcpRSfCsNf uOG0lV3sZIbzouwbg1lzjnpm Rtoqi4tdwx30kI60U60ePPdsHE ZlRYI2ZEUuDBIpsOkzed2wpT3p Ii8+CBmek7wvl1dgzSx5EwHe IXZtqdPkiDvqLJE2v4NkFl33C0 WhmAtix0HlWeu8gk32eZTix9N4 qUQ4KHrwTSCodA0mQGkxIlL2 PSKbExGxhD79hNPhZSdeQg3zhL tqaJlrPJ4rSSXbwxkfKWStgS5s OIGquNGyhBacUV0dONAdshyy k218ZaYwORV6LQHtjWOvC2YexQ 6kEgRhSTBeMAMjL9KwwNMyMJxn C802JSurGiK1SEWuuwDpE0Xz LZJotJagHdN6d8B1Ah7Mf2Qvut ytPXS1ZFhdCDExZrQlUoJoXfA1 N5OvDxo8OGYwzKviGX3kN5La HLIgpnosltdfrRA8VWDmCISvaE 20aNFbTMcjHo2mf2B2h646MRJr RHBzlS52By6wfGkhVIZvfSUO aZ6lgwjuh6oeklliSlFtCOMpTT v6FBb1NTDogCcgKwWlCCW9YxP3 HJL4gLUsbL1gfRwfodoeoJ5w Oyc+U53kjJ8sDDL0CCQ5atkmJX SbfkYwOW84BV57Z3XgNwxhsFOp bGU+GOLnmwGirUhkLU2vEzSi v5jes7SwPHkhE3MmVHCoASvkSe n8ETOuYTY7bQZ7lH9hRJSxEUec k6S4wOK9B1QxzfFhdf3kd3do ULHoBVbuW34lmLVdv8G0NWNmoH X4ITPqyZroVoXhkK37Ryl+PGNv eObmy1KvNayex5dkk9yyrDs0 AzPxLWUahqIyzLuaHZQ5g2RsUp 42N44bFMgyWOXrCWWaXUWpVSWp dMrxcg0hcS1rEd9+PGNvbCB3 tWS3wP9pBWJjYjS0RMghW595Wl TyvZHfJznnu4kpi1lckXk9NdNv SBCbywMvoKegGUD4i3LbSy79 K33dWEwsAEAoVDJeTLRfISCeiS epkt3btC8pPg8+JY7rk9zoxt48 gW78mXL+JINkQJD6pXkwOLvv SCDkpP2cUUayRjK5GKDlJyFqaW 98hHZqZWxhWl6osXmrkEkjNN5f WRZiqqbhu067QhElq7ruHGYo lGVnHNhpIGP1T03tz6L3JPYlJX IeQXP7gHT6aN9hlUowqibruSEh lYdjmyFtuTgzHLdzIOngV579 IHRvcDsnPlBhdGllbnQgTmFtZT v8F4MuJuq8YYWldWnjND9ufIRg AOwxIk6hiOwnsQtqHT1uKZNo sjhuu408LrWpk3maCJOkwERiMK poOWP4O14na1B9LGIxRBThDAR6 dBP4pH1geXnkbpfuzTIipApo niTefPgwATdbQHjbI732SIMoqB zyQsPsywWsOUGlqJQ6XO04AM39 cCTyx9S2kAJ6B3QhBCBzjdfh spbvtDX6HCSfPSDdpB07Rt5aiH zpUi3iWCEpAQW7ZOJtrUIhC4Pl eP8lSpEbJENkELSfV5EgsQNv FEmuD449SEgyXfS1UGQhgrPpF3 HsCNFjsHodDxH4i3N3Rv9IM4F0 EE55MH97dXQur7K5wPX0M3Bi UGWrqfcssnvtdYJ9RYBdYQAotH 14Vl6unAhbZf8aCLGnQMY5JZJb dZNfH8VsnN7qVaFeGKGzUXYa W6BayQMnKUgcT395BKzmRrZ8ND IhszMpI5AhZWKimIjgUaI1b4U5 Hl4MTSy3ED06PE25nZFsk0J9 kFK0M5TmXRQroodcdvvktKQ2BQ DsCDSfwQ91Up2wmEfxKe4sIJMa SBH0FEYlbUAzQ6DlcV3cVkEx MXCiQTDiS7VeeLMbCVyzU210ML xkSwS6UVQsahOaY4FhNIBasJrf KyN0y5N5Va7XKLOcUM60IIR6 pGU3OE37SF38D9JuVvmtlMVkgB U+PHRhYmxlIHdpZHRoPScxMDAl WmJazYswWJ2kJj8dBMTrOMNr rUcalWEmRcIcv7keLXTpHLuxEO 7fdHjjQ2PxrIY7OXEdy7g1Ws00 W21iM8HdwCC+QZKquHQ6oPN0 jC9rKfXfBjH2UDryX958HtHfeB VkVopzn3nys4zjeHu8IlQ7KDJq qjIbpAqkEKQ1q8TjLe39L74k IHdpZHRoPSIxNSUiIHZhbGlnbj 0mdJ2hDa0+DEQpqKB4aVB8lX7l RdIkCiF4JZeiE791MsPgqFJq Tegci6mqh0birXc5AfMeMSCnza EcxFwaVQJ8i3XeXf74O9HxjXce d9IySsd7vs03gQAkp6W2mHS1 F6IxDNAebgqccSLtdWzhBW8aXX KqxzcbYXWicD8vNSClE0t9FcQt LdG9LOnzX8LaswN3UYLtgJMc KZanUTT2F95mt1K8WJRzAWFzWT X3gUF6yR7oaZfdtsbvaTFxcDhc zcDxhXbdLUzoZLncZ459SPKf hZynBHUlhJ7iAOAniSBrlGkzYR 4cRFUnzypaWtGYS52MAzxwD2bY YtpAGhQHHG24ZZ11bJJuf0T0 iRJ5C1GmQIXpfvdtdoxztIC4XK HeAKSvqM00jXLhJKbqEy6wj8E1 w071LVBmXZOdkL67Kn8vdKyf HQWmvXIYjI7zdnyyr2wlbffbJd BpMRNaFYx9OFv1TRPkpGkdRoXm RTE6JeJ2ZTM0vXDgoP3bnIvk ihhrxR5xWly+JZPpVKYtESq5XO wvdGQ+NOKsBBL3mNlgMHilGSLj eK9nNOOyX2s2NnCxShF9QJec W3EyYRSdhnjdQh30dZ7rCjAwMm Q2HQusS9QdqlY0MERziZFeQJnj CHK3S40sa4S0JJLuCAHiJMC8 pQY7gD4xqRyftpdjoHCyxBjklx IzpWhdPZhtAZedY352NVBroXuk How8LWaeOXAyGW87UA74lJMf b7L7bDV2P2HoYVGfcvarxzqfhS R9STSaCGIyoM42uTMtEYpeTp5j v8E0a411EDFdNMRxvK90Hr6j wMzlQMQbfQSNhA9hkwhwy3ofpd kjKzSuXODyQPr0YIp0YMLvwYgw MbJsNDS8OtR5PXB4wGGmyR2h uKnggufbjL7fNvg+TUFMRTwvdG Q+KNObYCI8nGypRXmuCZWnrO5e NTTsB3z1TjQwYmL7HKfuS1Sv ZCUvbxevLd71aR7qKkHwKzQ0VC skM9SzweA3BERxaLNaWWkmAKW0 P98yi5V2YASjVCYpRRF0yUC5 fT6snStvkxqfwVTjnBjtlsHgcD yjAHmqOWcuS554ITLrvLprQpIi WKAeKQ2nwErfeBH+TY77il99 N3ZuCjoqLbr6TDMwWNB1yQW2tE 9eZHPlWOcza6A3bJL8G2KdstUi rz7nd8pwZSMoCQlnF79siAFw z3S0IFXmrAU1IAJtxOutMrJizK 93Oyc+SKYswKoha9MkSikmq9kt f5aplTg2OmTtVATnajXtxWnh QDJ1u5EzKz05Z44oYOoxAIJhWL QnJFYgZYMdbPxpyb7sfF3nNo4+ XFLxnIL5rUQ0mN0nEkPlYxG1 NDxyC791PoPvmBAsLccoh1gfc0 erbVy3OvVsMYVywaUzdOfyRVZ0 m3PbYn70B2UncLgek4AvWtt4 ny58hETki2C3qOL2H9DlTIIyps lfpHBtiJkaYR6rKRCnijmiUXRv mR8uEHPpU7b4KoAtHeV3HIhc G3FbtwE5QUZewVYaBXDurQDGtP 3nrlirz8wglsztGzJnGKIdRLv3 QWu0GYXlvJpuNmGwCAC3FsF9 MLE0oGCymI3qzSgfptbhdI7lCq c+UJd7u2segSApCV4zrED2IH12 SK27uGNim0F2yTA8J8UeJZTi zlqxwclmgZU1ZEPfPMGorK93Il 4imFzdNt4tSDQwAJN3UXWlbGOe P9MgfS0qNlAtCWWtQUBqK9Zv eQEqRFuvU082AXlfOpX0ZXGppa AcT8PqGNNcmOjzZtP2j0U1Az1E CZ28ZX81RP21bMQqv5W6cHR5 S6HmNISogpdngaokvUQ7AJVcWB JyjF02Sa9baBhfEz8mGQIlWWV4 KTFklMNaJ2PsiP3bUgDjJYXi ATKeN0QykUJsXPsnT457NYesZr S0VSZzhkLxE6LwNEAmiKwbFiA2 w7S1Jn0VAv45VH43LC43ePZc g4U7gVH3Q1RoNCUsienudqbhpA V9SMTnRULwuJ45Ts2mjIdeZm0v ZTCmSAY3ANTenFRnU4MwzV2c EtDzMBUfRXMvW5LccGDeVOimU2 74XTuyWmN1JYNixaDyM9RxXUAg gLnkQvJ2i7E9Ao6RMZgxkjl2 G6YhCopjjYG+EE37HPNyZF67sK OivIMmc1lzjIb7XgPkGIOtPSK1 pQwkXWltv2ZoWJEwM08viNJv c2U (more content not included)... [facility] Coding Summaryon 10-19-2022 Coding Summary HTMLBase 64 EjfqcclsUJw5kXx+PGhlYWQ+PE 5LZTEpI16jsUOtcU9UM0dXRW5L ZZQXRSGDEF4OKG8lqUU3HSypV9 VybiAv WaouaIEaGX19DJz2PFN5bSywCP fitT5drPJsY5w0MdMqGY03bZ27 QQaoEORkDaX3WiGlchigqROc F3wiZhDvmOIyVid+PHRhYmxlIH rqDPLrJYnrBUTcSvZbfJtmML9f Op0zNLKrAUSetForxPFrRuLg k7sjVGVjJBzbIG2hbBxyC5FumJ N4XJOus9h5Ij29sVQ+PHRkIHN0 vKsxBYkch968KeCnj0yoDQY5 kDXcLLgcYRU6M92ba0L1THMvRW KwDQV0qMY7wI9faTyyqxvvH3Vf bUWiGcI7KAV4qXFwiO4fuYzx lgxpeF4rBvl+L75XGY5SJPXSPC 6FIji0C7CiDebcpYZ+NQ48IKWa GN00rCOquTUvw4ctrTq7TiAb CCBcKLH8dNleADbak9LfUUXfF2 7yaQBzl3E8UDAneWtreSUnYbEo mNU7tY4hHArxxpddl0fiztas Xdces1jllg45eS33L24sVWgnOB HtKBD7WJZuNRFfrJvvoc1usC9o Ii8+UNlas0okj8gdvEu2YuAy IUQlpcTqzEebCXM8h4KaCn37O1 VdkMtwq6AoQej3lw54xYSij6R0 aKL1NXvxENCdkY1kOQwpTjJ3 PZJvVnTjuP36fRSlXPvbKm5vhU japEspEI9pRNOuvgyaANRjhG1n PPJdlMRpaFbpOZ5zXJDpdabx s140AcDjFUF4GHGsjYPiP5GkbE 1sKyLiPQYqEHWvE6JhrRJaNBrh Q499URutFbZ7GHTkosXiL8Yg SVEbeQttVfG2p5I5Oa5Qh1Bdcg owGGM2NTchMVMwZxAhShIjQjO4 Q3HxNkr9WDLxoSirTQ2rI1Nv XGHewbkkdqsxiEJ4YRUaBLCjeB 10bXCsINsxOk3gq9U9z847FYHo HIHdnS62Nu2mmPxdMYAipDXE aO4gfclid7vyqhttRyZyALZmPB v3CKn4ABFqkUyfFgCbFXZ4QvK5 OUZ8wRUofD3yaNzrawmtoG3t Oyc+P28wrH6rHRQ2PGA7wxteTP VhrmEkXA78TB81P1MaKhcgjESd bGU+FDFjvtAgqBiqMO6aSaAg j7ggh8NiDIloB3VdMKBhDDksNr h1OXQuZPU7hHE7dS7hQEGiYJrs n3U4gLF9K8HbtvUxim6gi1hl EJTgYZnwG93fxGKrt4V0QPLxhN F5HXBhaJthSgRpqO97Npp+PGNv pJtyo9GlJdvko8xaw5pooDp8 RdAdUUXijzJnaNytQEK4w4TpZa 05T14nRWqwYVRqJIJmXVYgCCKh gXvome4hiI6sKx4+PGNvbCB3 nCY2sY6fHYIhQyG6SQckT108Lx DfeXPlUusfh2wbh2qpwAl3VkVc HAWfddAjfYmxPPZ6t3AfZu96 Z14xTJttQZKnYJYjWVWzMAQslK lxwf9gmL1nDs2+IV2gm3ugcu40 nG40jYM+HKReBYC8gKioTXex CERqpW2wVRbwIsJ8IFVmFbXhqI 44lSKjIHdmJj8qyZkxbTnlGJ3r ACXsgnlmr220ErYyn3yfVQMw jQDqBVrbUWT8Z77vb4W5RKCyCK ZaEYL9vRG8zO0yrQvwsugcuQDc hMlypbIdlWxrNJttOZdgC063 IHRvcDsnPlBhdGllbnQgTmFtZT q3O2EiWnz3RGWpuDrjFT1pwLYh GWouBo2owAgrhMgcEE5zHKBp sodmq501VoBho3elIPUrjRVhFN htVFS5X51mw9C8EWRyMOLnMDM2 aPM9gZ3yyWybrtyplOAjiEbu tuAsjNkeBVbwZRhzQ677AKChbQ kdXfPzqbJyZDQtkDY7CB05RK44 lQQmh8H9uXE7D1OrLFEpvwwe lyfkzZK2JSIlWCCceY05Hh6fxL ssBw8rYMSzKHH5RRKsvCPaB9Uc wQ3eYdRoROQtFPZeP2VlzFRo EJppD981AGhpQuQ7LJHimsUiZ0 PuPWXzfWvpVaV2f7K1Zq4SS7V7 SE98AY69kBBkf0U9kJO8V6Lr JCBivolurdhaaWR9IOMpTBVzmE 82Mj5ekXtzOq8gSKUnJLS2CCWn nKJnI8ZanO5sWvXxIBGzTWCe R0CxqFSwAPxhA514KXyzJmW4IE NlrsIhS6JpOECcfYesNdZ1d8J1 Tn2REYl2SD74KK64yACpr0G7 dDB4E3BjBKHuiojlxlomiBT2CZ LkSMXakA37Ko8pdFvqJh7hXZRh BWG7UDHegWLdK1KhkU7cZqKx VEMgOLDnZ7QzdHAyLYzaZ006UN wzUcB2XQPdwuDiM9AsNXXdwGqe XnR5x9N3Lr4UNGQxZX71KCN3 lBP6QA62MY70B4IbDdqlvPGjoN U+PHRhYmxlIHdpZHRoPScxMDAl AlTqlJmzHP7lCv8uLACiEGXx iZvscJRwGyCht7vbDUPnQLfaRU 7mnKqfO9PduLA7IOXsz4d6Ty06 Y69jJ5HmxXF+JZOwgWY8hEC5 zO7tOwLgZlO9TKiiE427QkThgT EfUaheh5nsb6nbsZt0TaX2NZTr tkVsuYziSKI7p9FhEs31S31j IHdpZHRoPSIxNSUiIHZhbGlnbj 5stH5sHh3+CABenWO6yWA3gX9x UlSyDvW9NCsvD085GsRpkSNl Ckunm7swv9qmwZu6IcGtZRZiee UxuTpnTOP7e1ZcSs15C7YigGjp b2CxUpr1kr24cXQxr0V9xRR4 G5OkERYmrolhlWSsaYeiWM2wVQ VblnwbXVJxrJ5kJBIvP2m3QlCo BtV1XXfuN5AotwY4ARIcnJVj GLyfGQA0Q81so8D0ZSTgWWTaIH G6hLQ7fQ4vkAdrlvwmtKFmcFoq skIidYfuJZvhMGkfF643AGQc lWugURDbvK4eAHIohERtwDqhUA 0gVDYpmgzaFrSDM57DHyxaD8mT HrvFHbZNFS07YR94tGCtw6S8 rLP9Y0BxDYHlrivsnzsnhEH5CB ErWDMcdO72pXExSFxlHz2hp6G5 z313FLXaHOStaJ84Iw1zsIqm GQSkjQMZcJ8qsrnus8jmwbcaPh OqZLKvTHs3CUg4HDCcoVctUyOu DSN0UjR7EIQ6sPNovU1guJok kfgvwU3aZfj+GBHpWUVhXIz1ZT wvdGQ+BPFiNLF7nPvaHXjcPLIt kP3aTDKwP4f1JvNxXhI6MLsu L2QnKSPykhnhVg43pA5nGgNqKn G0YFkjQ7GlhuF7EVTdhCMqTNxb WMY0M96wu9R9CMOdOBTkIES8 cNS8yB4fcJorgbinrSCakRounp IczHycHJjnZYisI234UXRpgPgw Mee5OKsoGPFpLH42MC45vTOe b6E9oRB4U8TwJQAvxwhrtdzokL X3ZUYsEFTwnS07eQDcYKlgPl1n x8W2w052MOPdDYNmfH17Jp2n tPlnPFCedCODsK0jsnbbm7mcdn wnIeZmPABtJHr3UWx2AQSdsIif YuUmFGL6IyU4UHM7lDSvjY6l xFujbytxiG0dAge+TUFMRTwvdG Q+HOIwYJY9lSmfJMdkRFPbwJ9r PVTdK6q1LrQuFuP4MKybU0Ml VXKjqdtiRg24lH1yKlCvTaG1DI ukI0XfpmN6FBHisGUvJDykRQV4 J07fw1T6FMZjJFLwVAH0eVG3 zP6siLoasmmwoOSghPmbgjScrK slOJhrNPazS629EZOhnGlnLpNg ZAFiBN3tpVtfnBU+FQ02nb15 K4SnFncdSkk5TYYyHIU7jUM4hV 9yIXAqMQkka0Y8rLB8N2OvpoGp qm3vo4hvWXEnRJllL84ksEOj p2U8WNCjbKS6UMMatOllRkKstM 93Oyc+FVSgfIqjl7PfEtnga0da v9kysRk0QbThLNZippYxmYcr XOF1h5IvHq24N07hIOyqQLXxVD AkZLGeISHidQnswn5kjL9zYb9+ YVGknFV4wCY8eJ4jMvWvQsJ3 EBsyR469UdXjmJJgWacja0sfz1 vosOa3ReTxGJIiunZnyZxbWDN9 c8GeXa25J0KbkVibl8TjHab2 ha13jATum4K1sBL5Q6PmLEThdp knyADozGyqMP5uFMJqqkviMMJx jZ8qNAQuN1r6FrEqHfH0YLvh X0NscgA0VVHcnBGwMSGhiGOBmG 3kgqhyl5qixzqsGbLdFOXuMCc0 AOh7RDKsiWsrSbKvBQZ4ZnU9 VLE2wSKruE5nfRhcjmcghA2fFk c+BDx8y8teyTZkYY5toTG3QF94 ZS86nZMtj5M2gUV8L0KrYQGo qmscwntcaKF9PMClPHXjdZ39Wh 5mqKkpUa0wRCFxRRY9GKAqrBDr K8CqaV0gStDmDSUaDLNmJ9Wu uHTuLUtqJ845MVhiOsP2PVJlel NfU5YgDGOeuZqmJfJ2b3C7Sn7J SW46VD69OF04jQNhb7S5yWU2 F3XdNPYpyrnmgtoquSO2JZHwIB ZcfX21Dm5lsThiAq7rHDVyNEI8 RCIcyXZcR6ZizG1jPfToSRLj AUPkE5FmoWFxWUzdD200YFjvMo B6CBNuhbFtJ0YpYCGkmAkwNyB8 c8L4Jz0FSa62TG64FR28qQKp c2O5pDY2Y1NqKTOopjdryaxswZ K0ENLhERPyjE48Ws0fbVrxFn4x MEOgWKM0DWQfoELwX5ElkU1l OaKuEOGfABIhK4ZvhFWhTGhrX6 48IUceQdO8KZVgnpUeE0HbBKUj zXvyWmI6n3E4El5ERNsdtfh4 S4JqSamudPX+IR16ODJeXO43wL EalMUos0binYc1KzAtBZRtPMP9 kMgwPRwjz0ZrSURfK45ogJJl c2U (more content not included)... [facility] Coding Summary HTMLBase 64 GajivpmfLSn0hIr+PGhlYWQ+PE 7DZXBlT07feWWvuM9UV4zJAJ8Y QCFTNAGLEC3HJK9liMA2WLtrW1 VybiAv VkzqkSMeRM09BWd0HVR1sVviCI jfdR5fxOHdY5e5GfNuBU63sO55 GUfzJSWkTqD8TwCnygwhrLSs U6tyEvBjkBKoKac+PHRhYmxlIH xmZYXdFEbzLFXeGiNurUnpUY8c Ii4cLURhEXQggEiojFUcQvRh m6hdOUPqMSdwGY7dxKjwA8BckY C0VWZdc0c4Zq45zLO+PHRkIHN0 jXpyZZvhg854YiXww3ltFAU5 oGTyADyaBWF6F25je7Q2VCEfOO MzPGI0eQQ7lT8wrYzwnzctG0Ao wGJlXqY8TJK1fQKpkN1zrIgd xvsmmW0gNdo+C17PDW5UZSHFUJ 1FXmg8P5RzJchosSJ+XH50LTBx ET73eYCbrEEqw2fehBt8HwRp QEArJIH7aKxzFCkdm6ZkYUMvQ4 6phJElc7Q0PHVdzOtltHTdPvIu rWR4dL3zEJtjlhfyj7fmwxmh Aefha1sofp56mN46W41kEUvmHD DhTPH3UZFuLRJleBupwk0isM9b Ii8+YDrwj9nmf9kptDx6QhQl VFUhjaBfpLzoPMU6a9YgTa19H3 SjoLmnn1QvZbc4tw08vBDwn4R6 bGI2SOtqPVJgaI7cWLsuSnX5 UJQnGjKfsP03tZNdLIrpKf2rfN gkcHgmRB3qRINfcnjiVNGmpT1r LYUpiYIbjPulGE6uBFXtnldt o216JxNrUHK8ALXqoSUyJ4VldC 8yJuTiVBSrDFOnX9GgsDVmEFps I158WNniFnT6HMPognKnS1Vx YAYcrZhpOmQ0s9J2By6Ig6Amnc noHQY3JOrfTCHsUmIkMkSiReH0 I9TtZnu1SFAsmEcgQL4hG7Kr CJVzhwmryputuQI6GMNoTDWgsL 39dVKkKCxgOu1bp0V4e189NYDi LUPnyC78Rg0qwBpsGNCjxEQP mW7actkja4yqdkbmPqZtUJZnOT d3KZo9JVWhrWggCsNlJXG7QzU1 GMA3yUTflV5awArtzpabfJ8n Oyc+W82ncC4nDWA2ONV2makxUF FpcwHyKK77BJ95D0NlRvygbPYk bGU+ETZjvhBjsRzsBY1gJfOk o5ped8FaFOgdX3SrNANhOXmyCj n4KMBhQAV3bFN0cG6gIRWdEVfx r6B4hVC3T7ZigfIyit1nv4qr HPOzKYizM71dtGJxz2H5VFDjeF M9ZCMnmIszZiSfsH96Jxx+PGNv uAunm7QkNrwfx9dbn4forRo8 VcFiVGOtfaZivVxpTVI7l5GaRp 64G83yEByiPFTlUKZwLUEsECUk nVcxsy5vcN2bIp0+PGNvbCB3 lOP3hL6uWONbKwX3UYciH025Tv UxeREjGvftz4guw9fycIt2YtWg XSWhaiXzjBkiOKN7u1PgXo84 N38uRGmaXINsYJIlHDKgIXBezD kors1nxR1aNt8+NI4nc5poxg17 gN92mLD+XVItWWW5iPcrGCqv NEWbpA9cVMfyYzA5NRMpAdZklM 06eABqFPmoSl4xuEzrpXufQA0o ZFHoafwtv110SoSrv2dgLYNn cBQdYGabIMN6U49kx7D9PDRwHI KmOFK8bVQ5pF9rfQmcqlimrBTx eIfxqyLcbEspBLwvCLheU162 IHRvcDsnPlBhdGllbnQgTmFtZT h5P3WoDbi6YQHsmFbvEN2rkBHh JLxgHn5fjOoqbFuqOK3vFFSy mqnyt314UfGmb4bsJRWpwNJsYS wfHVH9X39pg1G9GVRkRWNzTXN3 mUN6oZ0tpWlaowifdGJzhFml wsUfyZmuYIahDBbxE619GSMgnG jiRrKyqvSrGTSnsBC4XC83NO42 bTSim2T9kIF4N6GnNTFxwckz odrohCR0VDEpFSCvaJ66Zx5bmK oaKx4pZGCfBLE8RMFelCAjG2Dt sL1hTyGeDVZaGHLvG4UhjGWi JPovB622VRldPhN8KNXwlrQnS5 EkYCIijJalNvE6i4G4Gq5LK6H5 LU09NW52rPTmd9S6dJO3C3Ru JUWjxihmszxkiYF9UCUqTRSvzN 68Fw8hrDzmFb2rPULkXTS8HCRu dBLmL9OkwY7zAlLvYFCoWRAy R0JpjTVfJPdhG673LWjfWrQ2RH MwoyTkE2SySJUitTceQoP8g4Y2 Qv2ARNb6LR80JM10kVVmt9X9 kUE2W6WvGRDpjfnfifkqoEG7GV IeHJIwgH71Pd8ujClmJt6hTBSa BFF1XFPsmNIdI1PosP1gTuZv OEWoDPGfR1DumPStKNnbP562ZC ybMlA7UMTobfSnV6KtKXFcjPhd FoZ3c3V3Er0XUTMcUA49XAN5 yFT1CR39IH77X9KvZnfrmCWlqV U+PHRhYmxlIHdpZHRoPScxMDAl HtMiyPjkVP8xFc2mNBGrCWKr mTnmvGVdQfXtl5aeOTOdWHtkWH 6uuCcyD4WkkSG6BQUlw3k0Be84 N95nR5IwsKZ+PAGalSS6oNF5 gL1aDbDeVnZ2DAlfL634TrCqhK PbAfjdw7nlf7oarVr2BrF6SDTu edLfvEtfWBL1x1LaRt05M27g IHdpZHRoPSIxNSUiIHZhbGlnbj 2dqR5sYl2+ZGJxpUC5dHD7hA1f GsTdDxC9UUvcS359LhXzfTUp Abypi0uxg3ygtUw3RjDoOCYtqe CdlDzvADE7x9QrFf36Q9RrgSoz x4ElXwd8zx42gKOpu6X0eJH5 U8QyMKLepxydsLKgdDqzYT3kPX SpumwgKAVnxU7zNCTbJ4m9RbYv ZqE3SPynN6XwfrK1QMYaxAZx TYqwBYW5F23nb9M7UXFoHMXpNZ C1uQL6lI6mfXyorvkxeCRwiTsa hjKosWhjRVmgTAglL720JGLe zLciGSVrpB7rCNJgiIAvpEhhQM 8cJHBjmfwqOxWHH57MPlkvM3qH HfmEGfTTOT84ZL99jFZdl2W0 cCN6B2WgRCIukucyymybnGP9TB EtZVTuuT56wZTzGCopTs8qr7E1 r920GURhDSLcgA99Qi4spKee SWQopECFiH2fxiauq1ujsbzqVo UyWSArBQa5NDz4PNFnhQynQyWz DCO4LbT3QIH4fBKahP5ycCpg aavpyF8mOwn+CLGiNLApFOw0MW wvdGQ+BBYqMWF2fOgvESfeMUMd sU4fYAIfS3z7RdGjSaD7XXkq Y7PfRWAnvtekZn76gL3gMxYrFg A1PWulT1QipsD3WAKciBJfTIoo BSK0G65jz7J0QJLkZXAfIGW9 jBJ1bA9qjDlbpekhnBGmqVwpok RwaAwoQHdbEKnbI341KJAaqUfk Zzi9ESrtWCItFQ61IJ13qXSz w9J1xNT7N3SoGEFkrgmcftoabH P3GFObJESeqB58qHNiJRzhOp8p l5X8w302ZYSoNZBodU76St5h lFggMKKdpJFRrZ7bsdrfg6huaq nlYaQhNFFyJIk0PGm7SKKukJzb XwWuZXI9FaB6BLM2dNZtpB1m oByiooxqqL7yTbl+TUFMRTwvdG Q+OHRwUIZ9cIusKIhbFMMidK8y ZQDkU2n9XyWsNjR6YXnnC2Sc UOGshujjKt91jJ7hTdImTfE1QV ohT4TyuuZ6UBGxyGDkWOysNAN3 C30jq7M8YHIzLGPrZQU5xZV8 cR7veNujvqunwIPqpWnmmzVtuU njSQbnADfaV628BHCsuFoaHvOe H1RzloljIiERaCAcCFOfBR99 BC57IZ99F7GnLpoofADixBN+PH RhYmxlIHdpZHRoPScxMDAlJyBz sEirWA6jCq6lIQMjERQcaJxv aKMyRwOek5luFCDdKLghGU1zxO xzA8RuoKE7QZDrf6a1Pp41N42f I1DbzWS+ZTPzjVS5zRB2wU5a PrPkSbE1FYlbW734ShIonDHkPn mla2hnt2vfkCp4AhFrJRTfcbMs hNqtJYQ3c0DuCx27N60jRGep UUBoGRQoTRTpOGHzoTjcan0exS 9wIi8+GUMppEN1gET8iI8kJaHp GwI9DLblK415AkJbtVMmQfwb J01sN7OucHZ+ZKVvYda0TUTvjN yxII0jqZLnCGwjWr6vKEI0PqUg FeAnZCooN2XgAOWfpdbwnwho sJM3WZHqUOVzwB04Pd0vmXnwZc 4fTSZrQFD0IKMocHKeF5JnoW9l ZuYvJCBoNKLrC9RwjGLaBBtl Q306OWlmRqE5ZKWratZaL1BoRZ YxvJqaAmB5t7V5Aw2HyVsykOGu YT6mFxGwOFh9R4UzGol0MECl lUaeCH8saUXzBUkrTe5vqAvvkX ixXP2tARBbfusbl201NaGlv2xy DBMmuUEmEGzhRGH2B71jc6V4 DBUaIPQkSLY3gOJ0jN0lmCtpqo ogbGVmdDsgdmVydGljYWwtYWxp C031NFYgnJfyLtZRPns3P5Em Nvs8FQJheZbbOM8eeNFcSSccMm 0mnBaqfXopEC0fUHPyyzxfu858 DdMad8vqHECinVVdEWllNXH5 K38ru1E6AQBwVFUxMXZ0uGH4cM 1hbGlnbjogbGVmdDsgdmVydGlj ERquSBirO547GAQihFkmJp1K Vqv4K9EjKyx5ZQOrbFmqCF7ctM KrUTtwPv5xcHgdzLgrOU3mNSAu txwzm104FnKov2lfMWYnwJIn XYixRSN7H64ea5B5ADKaDTTxMR E8mMR0qG1cxGiynraagXEftDgn raKgaEcgLFweNUuvG929GKWg cDsnPlBheWVyOjwvdGQ+PC90cj 40D4EyIfdlTal6JQTtKGN2wAB5 gL9aQALiJKjpr5E7wTN5F4Cm cmR (more content not included)... [facility] Coding Summary HTMLBase 64 CdjqqacwZXl4tBa+PGhlYWQ+PE 1LSTDrS41evHKkeX4KH5uLVK8F AUUUTOVPOW7VDW6dnAU6KEwgM5 VybiAv SucidTEfMF23ZXf8WID4dHwtSX mrlM6ynMZsG0w9GuBzPH29rV34 YVkvZWVzMyK2VzRxngvdfBXv H8foPaArjASsMma+PHRhYmxlIH qlVVEzVVipJSFsHkXoxEjmSD2x Pv2kDAEjBZZpcGjfyMEmMjYo s8pqVHUoXNkrQZ6pcJbqL3BopY K2NEIun8g9Pr47qZW+PHRkIHN0 tJkrRHdem608JfQsq7xmSNF5 tHDcMLpyDAS5Y92li0J5MUDuDD FrETU4dQE6sD6ooWyezstyI1Rq eZXlUqD1LCC7zYYkrD7juYvw wxkkmO0zQsp+D53PQT2OKDDXVF 9SRqo7E8SeTxcrjDW+PN07VESh ZO29uQRzaAPem7xhhYi2MkTc ILCtSUH2oEttOEzzm9MyLCTbS9 7wkIQju0B1HSQozUvhmGIwGgOr iBF0zF9jWZdpjgnfo3utxwae Xckpn7vpkn57jI82D75dPOgpVS RhEYN7SMPbTYZivZixxy2jlS1h Ii8+RPave1apy3dvlXq7WlJe NMFlhhLecCxpHJN2w5ZgZd68I7 LtfBeyq2HyGuc5pp04zXEwm7W4 tZF3JHpwVGTqpF4vNOflCaC3 NPGjOaBbtW64fXGwYSvpWx4ebT azuHeuAN1tIUPkbcybSLZuwP2a ODCufHZvdBpgNQ0cRKXbyhfy y337OrRzSFD8BFVdjEIpA6WqcW 5eFsVvDDFzPIRsP2CzzVTbCCmp S455LLbkKpU9JSTwoyAxA2Qu ROYrsLuyFkQ0x4N9Tg1Hc5Cbcg nfEAP2YKmfDJOoOeGfAwLwBoF1 X4BsVvr3HXVgyLmzDW3yC3Er HMJizkzkogcoxOA5JBWiHKDglI 35oGKrWLsjVl0ri9O1n038NCKd QRPvjE70Pe0azJoaMJRxuHEA zH0ujmxtz2ajvrtsDgYyVCBlYO a4PDz1KHYjcRcoXcKuJLF3NpR2 NPJ5rUSjxU3ymQmusvpzvY6c Oyc+X61atF3gHCF4ECE0chfkGG SdhmOeFW15AP57V8UwFzfmgFLw bGU+IUJhspHcgYesWB0aLdPf u2nvv1AfPSmsB4WmHEPySEhiVb h9ZDUjHYC7dFM7uG1eHFIjRGzt h7S3sHT6P2XrevRkbi2jk9qu JMQeDSegX22kxXRys4X8VCFthO X2NIXkvGlvKsNooX37Jug+PGNv wNtfx9UyFehon3lbp0kpmVh9 RsCcHWTzfuAbfCokATF3o4JmAe 94O93rCEpuCULlVEYyOELfOHYa hJmkym2mnM3lBp6+PGNvbCB3 bIK0jY3hECZpLqK7JMthY139Qr HpzUKyTnkkb7djo3npsUo8CdXm AQAbllEhgXlaNQD2n7CgIw55 D28dZYcsPVXfMTViYXTmVINuiU cylc9gtR9zZr6+TI8fe5ufys59 hX11mXU+HVTqMTP9vUcqMZcz UUJthW7bCGfxLgI4QJTbLuRpsG 84nGIlBKbbUe5nmKigmXczAC0p QGLglokkv648BmYpg6pmQMRd kEVaNEqzXFQ7D87wf2L8VAYvWJ LtEGU0iJK1tM8acHucovddaVIo mVxnpfXbtAzzQCcgHNcbT879 IHRvcDsnPlBhdGllbnQgTmFtZT x6F4XjKrq5SQEovOnoOO0blDZz PPxsFz9xoTywdMpaJW0nKYYw ytrwl969IeXbs1auBBHadMZpPH lgFYZ0X96zp5U0BGCkHMVeVXX7 gQL2tN3edRpelrlnaOBeiLkl icAhpLlcFQubVTqhB850WNDrkS jtVrVmpgPtZETjqJS1EO67PA13 bUYex5O3pET8S3DqAOIncuqj biwupMQ6SWIqBXDerI22Yf1yaD bbDv5wTFGoRDZ4SQCmbQVzL9Bw wI1bIeXeZYVpQBOlS2UnzPQg XYnnJ014MGofLdC4TNGzvrFwW7 ZeCNNxmRqhYoC3v3M6Yt0BH2D3 WB15IT62mTXcz3A5cZT3L7Sb ZUKzymxpnirjsCH6MCYnIQJuiS 11Zi2peDoxLk8rMANyCVC2GGIh oDJyT5AwhN6uNeJyTKHaGFOx H3QkpFXdGZbuZ736LBbkPgA1UM UtkfItZ5FiUJZisRswYaH9i9V4 Sk8ECVe1GC85OR00nPDuw3W5 eIV0W0BuCIJdellgrgcoiVG2GU UnLERzrL58Qp9akHgpDp3yWXJt ZRZ5UZBieQOgP1JxoL8hIgHk VQRtFKNaE2TluSKpDHepP056BW kmNjQ7BSIchqVhX7JwZDCpuRas JfF6q8O1Pv4CNYNsGV21OQP2 dCC2FV08ID73Q1TkKccweXRwaO U+PHRhYmxlIHdpZHRoPScxMDAl KxOcbQroKE5cQk2sDPWkQGBo vAufsWVeXpFbc8lhLUIcMVajTE 7ddNnxX0GecJR3ANHvm6u9Ir84 H43uR1MfzRV+OFBxpOX5cCH2 uC3zRqZjYbS8VTbxS485GkVhdJ TmKiszi0zby9lavGo5MoA1SJDm mgFebAsuNQN4o5MtJo87D58i IHdpZHRoPSIxNSUiIHZhbGlnbj 4ruZ8zYl8+EWJzvVP9jYA4hV2f GnElMaA4HKyoH923ZpQdrFVp Wiewe3oup3uxhTc5UrOjBDXxqy AbrKakDHZ6w7JkAg96J2GfxKpg t0PuDhe9yi88mRXty8I1bHU5 Z5WhLTOjolodhTJnxOxwBI7sXA NwyvfrQSCdqY4cVRGyV4a3QqIj GiT0EJvcA1DlrjF2ZLTcrUQu LUkuFGC7C10cl4Y2HFDrQDLlIF K5qOX9yP8ngMocjgsnqOMuaEfx rcDlgOshWIjqHTcdW390KNNu kFagTTGdbX5nUVEjsKLsgRcvCW 5dNTNaosxvNcHXP46QNxyiL6jY WptKKzSWKY24YS59rTEnn7X5 lEW9X7KfUUZkejgeyxhvnJE3NI FpHBIfpG53eZFsFBywPs1jl4S4 o116RCAaSXStsH72Pl8gzUal EZXmsKJJnY1mjzrov8dctfbqKt VzSJWwKZt9BVs8NKGitQrsAqIv OFN7CsN2NAB0vNAalW9gnFqm jtqksG4kTbq+LBTuYWMcRGm8FD wvdGQ+IHSrNVM4yMwwFBvmKIKx gG1pVZBxE2r4IqOdZfF0XSxl N5UqFLUulsllNc36nF3bTiWeTj G2AUlfP5LrcyD8EOVdkPBwRJzf VNZ8N06dq0V2QZIvEIKiJXF8 mRS0dM6rdXvavxscbRDybSzska RzwNndKKxoECprB298MWImoNse Fpz0VCbwADPoVP81HM36sHNa s0K9wOH1R6XgNXUgmzxridtaiB Z9ORCmDXSvxT05xOVxPOjtUb3x q0S1c627LAPyRWUzxQ70Ri1b oAuaVNQctPEZtB3pigzqu8xthe jqYhEmHALmTOd2BZs4SSXfzOsn EcBzMZB0CsG2QPP5oWBlaY7u dTcuwynwmM3zJyq+TUFMRTwvdG Q+GIRiNGC2iAdkHEfyXABneG9h MXFpA1t6HdBdYjO2FKddJ9Gf DRTuseyjHv60kU2tQkMaFvC0ZX qfF2ZdvoC1KTLjqXEfKSgnGGJ1 S43zj9Y5MAKdBFVwFAY9xMG7 gT5uyXxxqpczyVUycYzgbnWwtJ cnJRtyDGthB488AOLdeWjiHlJb M8EzljqcKuWXqVJyJMLiPN95 QL08BM34M7XmAdgylEZfpJQ+PH RhYmxlIHdpZHRoPScxMDAlJyBz kNeiSC4lOi7ePHVhEKNfkLrw tREyRxJvd0brVBIaGHbcTZ4seH zgB1OqdSG2PQKtg8m1Us05L30q C7YzeOI+HYGluXZ0bMS9qN5i LqWhIiS6BKarG442IzNogMUhNx dap6inl1qxiSi5GpCsXNCscgQp uZztFME8q7QfPo19L33pOUxf KCPtFWYfTTNsFJEgbXnjln2kzT 9wIi8+ZIYruJB6kBA6kE7oIcVq KzZ9RZluE998NoAnzJJwEgtu W25mB5IpaEJ+VHOzRly0VXCbcJ buXX6tjSPeTVqeZs9xTAD1KwWj PyMuRDxzG5HlKQJbbtstzfte pAG7CVUaAVQlzU86Km9vfCgbIe 4gLRXzBGT2IHSjxJGgB9YhyF7t RvXnWDZhGJUsJ3LtvWGcTKsi R262RCinMeW2VUTpiqNsN4OuDS RgdIlvJjP0m2P0Qs6NzWykuANj TS3eAmLhOOg5R0UiIsc5DINs zYvzXF6djGZpFVqaXi8heUpguB jnWZ6gDUXpiffeb641DtYjp9pf COHnxIAiKRtaDXD0M74rf1G9 HUZoXPThHRR8lZC5oI3wtXnjsl ogbGVmdDsgdmVydGljYWwtYWxp M634PDLtwIxlToHQQfy9R8Lx Lyz1VYGrrQweJD6xaYPnPKghIm 8yjQdinTmrXR5dUCRyjtkkw773 TwPjj7eqKGUgnLWdGJpbWPC0 R53rr4S6ZTKpFYSkGNS2aEP9fC 1hbGlnbjogbGVmdDsgdmVydGlj RIsyUQgzP198JPEgdFgbRm8N Fll9B5OaXsj7ERYjbNvhKS4yrE WfPLhkVn5ipPtsqCpkLJ1oLCCh wwkbs173JkUjd9wrWMBndSPj KNuvWGD3P93np1E8LWDgAFOoPT U4mBC6eZ1ouQmzkoqibSFlbXem yjWwwUehIOhpYKozE226DIHs cDsnPlBheWVyOjwvdGQ+PC90cj 73F8SmVyjwGte0KRWmEEA1yLO2 pQ0zCQKnBBylq8P3aNE5O8Ta cmR (more content not included)... Normal [facility] Basic Metabolic Panelon - Anion gap [Moles/Vol] 15 mmol/L 9 - 17 mmol/L [facility] Calcium [Mass/Vol] 8.3 mg/dL Low 8.6 - 10. 4 mg/dL [facility] Chloride [Moles/Vol] 102 mmol/L 98 - 10 7 mmol/L [facility] CO2 [Moles/Vol] 23 mmol/L 20 - 31 mmol/L [facility] Creatinine [Mass/Vol] 1.17 mg/dL 0.70 - 1.20 mg/dL [facility] GFR/1.73 sq M.predicted MDRD (S/P/Bld) [Vol rate/Area] - PINF [facility] Comment on above: These results are not [...] [Mass/Vol] 91 mg/dL 70 - 99 mg/dL [facility] Interpretation and review of laboratory results Abnormal [facility] Potassium [Moles/Vol] 3.2 mmol/L Low 3.7 - 5.3 mmol/L [facility] Sodium [Moles/Vol] 140 mmol/L 135 - 144 mmol/L [facility] Urea nitrogen [Mass/Vol] 17 mg/dL 8 - 23 mg/dL [facility] Basic Metabolic Profon 10-18 Anion gap [Moles/Vol] 15 mmol/L Normal 9-17 [facility] Comment on above: Performed By: #### M G, CBC, BMP #### [facility] [address] [place] [phone] Library Specialist: Wenceslao Rose MD Calcium [Mass/Vol] 8.3 mg/dL Low 8.6-10.4 [facility] Comment on above: Performed By: #### M G, CBC, BMP #### [employer] [address] [place] [phone] Library Specialist: Wenceslao Rose MD Chloride [Moles/Vol] 102 mmol/L Normal 98-107 [facility] Comment on above: Performed By: #### M G, CBC, BMP #### [employer] [address] [place] [address] Library Specialist: Wenceslao Rose MD CO2 [Moles/Vol] 23 mmol/L Normal 20-31 [facility] Comment on above: Performed By: #### M G, CBC, BMP #### [employer] [address] [place] [address] [phone] Library Specialist: Wenceslao Rose MD Creatinine [Mass/Vol] 1.17 mg/dL Normal 0.70-1.20 [facility] Comment on above: Performed By: #### M Hannah CBC, BMP #### [facility] [address] [place] [phone] Library Specialist: Wenceslao Rose MD GFR/1.73 sq M.predicted among non-blacks MDRD (S/P/Bld) [Vol rate/Area] mL/min/{1.73_m2} Normal >60 [facility] Comment on above: Result Comment: These results [...] affects renal tubular secretion. Performed By: #### Marcial Young CBC, BMP #### [facility] [address] [place] [phone] Library Specialist: Wenceslao Rose MD Glucose [Mass/Vol] 91 mg/dL Normal 70-99 [facility] Comment on above: Performed By: #### NIA Bowman, BMP #### [facility] [employer] [address] [place] [phone] Library Specialist: Wenceslao Rose MD Potassium [Moles/Vol] 3.2 mmol/L Low 3.7-5.3 [facility] Comment on above: Performed By: #### NIA Bowman, BMP #### [employer] [address] [place] [phone] Library Specialist: Wenceslao Rose MD Sodium [Moles/Vol] 140 mmol/L Normal 135-144 [facility] Comment on above: Performed By: #### Marcial Young CBC, BMP #### [facility] [address] [place] [phone] Library Specialist: Wenceslao Rose MD Urea nitrogen [Mass/Vol] 17 mg/dL Normal 8-23 [facility] Comment on above: Performed By: #### M Hannah, CBC, BMP #### [facility] [employer] [address] [place] [phone] Library Specialist: Wenceslao Rose MD CBCon 10-18-2022 Erythrocyte distribution width (RBC) [Ratio] 21.9 % High 11.8-14.4 [facility] Comment on above: Performed By: #### Marcial Young, CBC, BMP #### [facility] [employer] [address] [place] [phone] Library Specialist: Wenceslao Rose MD Hematocrit (Bld) [Volume fraction] 35.2 % Low 40.7-50.3 [facility] Comment on above: Performed By: #### Marcial Young, CBC, BMP #### [facility] [employer] [address] [place] [address] Library Specialist: Wenceslao Rose MD Hemoglobin (Bld) [Mass/Vol] 10.2 g/dL Low 13.0-17.0 [facility] Comment on above: Performed By: #### Marcial Young, CBC, BMP #### [address] [address] Library Specialist: Wenceslao Rose MD MCH (RBC) [Entitic mass] 22.3 pg Low 25.2-33.5 [facility] Comment on above: Performed By: #### Marcial Young, CBC, BMP #### [facility] [employer] [address] [place] [phone] Library Specialist: Wenceslao Rose MD MCHC (RBC) [Mass/Vol] 29.0 g/dL Normal 28.4-34.8 [facility] Comment on above: Performed By: #### M G, CBC, BMP #### [facility] [employer] [address] [place] [address] Library Specialist: Wenceslao Rose MD MCV (RBC) [Entitic vol] 76.9 fL Low 82.6-102.9 [facility] Comment on above: Performed By: #### M G, CBC, BMP #### [facility] [employer] [address] [place] [phone] Library Specialist: Wenceslao Rose MD NRBC Automated 0.0 per 100 WBC Normal 0.0 [facility] Comment on above: Performed By: #### Marcial G, CBC, BMP #### [facility] [employer] [address] [place] [phone] Library Specialist: Wenceslao Rose MD Platelet mean volume (Bld) [Entitic vol] 10.1 fL Normal 8.1-13.5 [facility] Comment on above: Performed By: #### Marcial Young, CBC, BMP #### [facility] [employer] [address] [place] [phone] Library Specialist: Wenceslao Rose MD Platelets (Bld) [#/Vol] 198 10*3/uL Normal 138-453 [facility] Comment on above: Performed By: #### Marcial Young, CBC, BMP #### [facility] [employer] [address] [place] [phone] Library Specialist: Wenceslao Rose MD RBC (Bld) [#/Vol] 4.58 10*6/uL Normal 4.21-5.77 [facility] Comment on above: Performed By: #### Marcial Young, CBC, BMP #### [facility] [employer] [address] [place] [phone] Library Specialist: Wenceslao Rose MD WBC (Bld) [#/Vol] 6.2 10*3/uL Normal 3.5-11.3 [facility] Comment on above: Performed By: #### M G, CBC, BMP #### [facility] [employer] [address] [place] [phone] Library Specialist: Wenceslao Rose MD Hematocrit (Bld) [Volume fraction] 35.2 % Low 40.7 - 50.3 % [facility] Hemoglobin (Bld) [Mass/Vol] 10.2 g/dL Low 13.0 - 17.0 g/dL [facility] Interpretation and review of laboratory results Abnormal [facility] MCH (RBC) [Entitic mass] 22.3 pg Low 25.2 - 33.5 pg [facility] MCHC (RBC) [Mass/Vol] 29.0 g/dL 28.4 - 34.8 g/dL [facility] MCV (RBC) [Entitic vol] 76.9 fL Low 82.6 - 102.9 fL [facility] NRBC Automated 0.0 0.0 per 100 WBC [facility] Platelet distribution width (Bld) [Ratio] 21.9 % High 11.8 - 14.4 % [facility] Platelet mean volume (Bld) [Entitic vol] 10.1 fL 8.1 - 13.5 fL [facility] Platelets (Bld) [#/Vol] 198 10*3/uL [facility] RBC (Bld) [#/Vol] 4.58 10*6/uL 4.21 - 5.77 m/uL [facility] WBC (Bld) [#/Vol] 6.2 10*3/uL [facility] Magnesiumon 10-18-2022 Magnesium [Mass/Vol] 2.0 mg/dL Normal 1.6-2.6 [facility] Comment on above: Performed By: #### M G, CBC, BMP #### [facility] [place] [address] Library Specialist: Wenceslao Rose MD Magnesium [Mass/Vol] 2.0 mg/dL 1.6 - 2 .6 mg/dL [facility] Basic Metabolic Panelon 09-22 Anion gap [Moles/Vol] 15 mmol/L 9 - 17 mmol/L [facility] Calcium [Mass/Vol] 8.8 mg/dL 8.6 - 10. 4 mg/dL [facility] Chloride [Moles/Vol] 102 mmol/L 98 - 10 7 mmol/L [facility] CO2 [Moles/Vol] 22 mmol/L 20 - 31 mmol/L [facility] Creatinine [Mass/Vol] 1.09 mg/dL 0.70 - 1.20 mg/dL [facility] GFR/1.73 sq M.predicted MDRD (S/P/Bld) [Vol rate/Area] - PINF [facility] Comment on above: These results are not [...] [Mass/Vol] 98 mg/dL 70 - 99 mg/dL [facility] Interpretation and review of laboratory results Abnormal [facility] Potassium [Moles/Vol] 3.6 mmol/L Low 3.7 - 5.3 mmol/L [facility] Sodium [Moles/Vol] 139 mmol/L 135 - 144 mmol/L [facility] Urea nitrogen [Mass/Vol] 19 mg/dL 8 - 23 mg/dL [facility] Basic Metabolic Profon 10-17 Anion gap [Moles/Vol] 15 mmol/L Normal 9-17 [facility] Comment on above: Performed By: #### B SUZANNE, CBC #### [employer] [address] [place], [place] [phone] Library Specialist: Wenceslao Rose MD Calcium [Mass/Vol] 8.8 mg/dL Normal 8.6-10.4 [facility] Comment on above: Performed By: #### B MP, CBC #### [employer] [address] [place], [place] [phone] Library Specialist: Wenceslao Rose MD Chloride [Moles/Vol] 102 mmol/L Normal 98-107 [facility] Comment on above: Performed By: #### B MP, CBC #### [employer] [address] [place] [phone] Library Specialist: Wenceslao Rose MD CO2 [Moles/Vol] 22 mmol/L Normal 20-31 [facility] Comment on above: Performed By: #### B MP, CBC #### [facility] [employer] [address] [place] [phone] Library Specialist: Wenceslao Rose MD Creatinine [Mass/Vol] 1.09 mg/dL Normal 0.70-1.20 [facility] Comment on above: Performed By: #### B MP, CBC #### [facility] [employer] [address] [place] [phone] Library Specialist: Wenceslao Rose MD GFR/1.73 sq M.predicted among non-blacks MDRD (S/P/Bld) [Vol rate/Area] mL/min/{1.73_m2} Normal >60 [facility] Comment on above: Result Comment: These results [...] Performed By: #### B MP, CBC #### [facility] [address] [place] [phone] Library Specialist: Wenceslao Rose MD Glucose [Mass/Vol] 98 mg/dL Normal 70-99 [facility] Comment on above: Performed By: #### B MP, CBC #### [facility] [employer] [address] [place] [address] Library Specialist: Wenceslao Rose MD Potassium [Moles/Vol] 3.6 mmol/L Low 3.7-5.3 [facility] Comment on above: Performed By: #### B MP, CBC #### [address] [address] Library Specialist: Wenceslao Rose MD Sodium [Moles/Vol] 139 mmol/L Normal 135-144 [facility] Comment on above: Performed By: #### B MP, CBC #### [address] [address] Library Specialist: Wenceslao Rose MD Urea nitrogen [Mass/Vol] 19 mg/dL Normal 8-23 [facility] Comment on above: Performed By: #### B MP, CBC #### [address] [address] Library Specialist: Wenceslao Rose MD CBCon 10-17-2022 Erythrocyte distribution width (RBC) [Ratio] 22.3 % High 11.8-14.4 [facility] Comment on above: Performed By: #### B MP, CBC #### [address] [address] Library Specialist: Wenceslao Rose MD Hematocrit (Bld) [Volume fraction] 36.9 % Low 40.7-50.3 [facility] Comment on above: Performed By: #### B MP, CBC #### [address] [address] Library Specialist: Wenceslao Rose MD Hemoglobin (Bld) [Mass/Vol] 10.5 g/dL Low 13.0-17.0 [facility] Comment on above: Performed By: #### B MP, CBC #### [facility] [employer] [address] [place] [address] Library Specialist: Wenceslao Rose MD MCH (RBC) [Entitic mass] 22.2 pg Low 25.2-33.5 [facility] Comment on above: Performed By: #### B MP, CBC #### [facility] [employer] [address] [place] [address] Library Specialist: Wenceslao Rose MD MCHC (RBC) [Mass/Vol] 28.5 g/dL Normal 28.4-34.8 [facility] Comment on above: Performed By: #### B MP, CBC #### [address] [address] Library Specialist: Wenceslao Rose MD MCV (RBC) [Entitic vol] 78.0 fL Low 82.6-102.9 [facility] Comment on above: Performed By: #### B MP, CBC #### [address] [address] Library Specialist: Wenceslao Rose MD NRBC Automated 0.0 per 100 WBC Normal 0.0 [facility] Comment on above: Performed By: #### B MP, CBC #### [address] [address] Library Specialist: Wenceslao Rose MD Platelet mean volume (Bld) [Entitic vol] 10.3 fL Normal 8.1-13.5 [facility] Comment on above: Performed By: #### B MP, CBC #### [address] [address] Library Specialist: Wenceslao Rose MD Platelets (Bld) [#/Vol] 185 10*3/uL Normal 138-453 [facility] Comment on above: Performed By: #### B MP, CBC #### [address] [address] Library Specialist: Wenceslao Rose MD RBC (Bld) [#/Vol] 4.73 10*6/uL Normal 4.21-5.77 [facility] Comment on above: Performed By: #### B MP, CBC #### [address] [address] Library Specialist: Wenceslao Rose MD WBC (Bld) [#/Vol] 6.6 10*3/uL Normal 3.5-11.3 [facility] Comment on above: Performed By: #### B MP, CBC #### [employer] [address] [place], [place] [phone] Library Specialist: Wenceslao Rose MD Hematocrit (Bld) [Volume fraction] 36.9 % Low 40.7 - 50.3 % [facility] Hemoglobin (Bld) [Mass/Vol] 10.5 g/dL Low 13.0 - 17.0 g/dL [facility] Interpretation and review of laboratory results Abnormal [facility] MCH (RBC) [Entitic mass] 22.2 pg Low 25.2 - 33.5 pg [facility] MCHC (RBC) [Mass/Vol] 28.5 g/dL 28.4 - 34.8 g/dL [facility] MCV (RBC) [Entitic vol] 78.0 fL Low 82.6 - 102.9 fL [facility] NRBC Automated 0.0 0.0 per 100 WBC [facility] Platelet distribution width (Bld) [Ratio] 22.3 % High 11.8 - 14.4 % [facility] Platelet mean volume (Bld) [Entitic vol] 10.3 fL 8.1 - 13.5 fL [facility] Platelets (Bld) [#/Vol] 185 10*3/uL [facility] RBC (Bld) [#/Vol] 4.73 10*6/uL 4.21 - 5.77 m/uL [facility] WBC (Bld) [#/Vol] 6.6 10*3/uL [facility] Cult,Urineon 10-17-2022 Cult,Urine Specimen Description .CLEAN CATCH URINE Culture NO GROWTH Report Status FINAL 10/17/2022 Normal [facility] Comment on above: Performed By: #### U RC #### [employer] [address] [place], [place] [phone] Library Specialist: Wenceslao Rose MD Culture, Urineon 10-17-2022 Microorganism identified Cx Nom (Unsp spec) NO GROWTH [facility] Specimen Description .CLEAN CATCH URINE [facility] Basic Metab w/rfx MGon 10-16 Anion gap [Moles/Vol] 11 mmol/L Normal 9-17 [facility] Comment on above: Performed By: #### P RCAL, BMPX, CRP, PT #### [facility] [address] [place] [address] Library Specialist: Wenceslao Rose MD Calcium [Mass/Vol] 8.1 mg/dL Low 8.6-10.4 [facility] Comment on above: Performed By: #### P RCAL, BMPX, CRP, PT #### [facility] [employer] [address] [place] [address] Library Specialist: Wenceslao Rose MD Chloride [Moles/Vol] 104 mmol/L Normal 98-107 [facility] Comment on above: Performed By: #### P RCAL, BMPX, CRP, PT #### [facility] [address] [place] [address] Library Specialist: Wenceslao Rose MD CO2 [Moles/Vol] 23 mmol/L Normal 20-31 [facility] Comment on above: Performed By: #### P RCAL, BMPX, CRP, PT #### [facility] [address] [place] [address] Library Specialist: Wenceslao Rose MD Creatinine [Mass/Vol] 1.13 mg/dL Normal 0.70-1.20 [facility] Comment on above: Performed By: #### P RCAL, BMPX, CRP, PT #### [facility] [employer] [address] [place] [address] Library Specialist: Wenceslao Rose MD GFR/1.73 sq M.predicted among non-blacks MDRD (S/P/Bld) [Vol rate/Area] mL/min/{1.73_m2} Normal >60 [facility] Comment on above: Result Comment: These results [...] #### P RCAL, BMPX, CRP, PT #### [facility] [employer] [address] [place] [address] Library Specialist: Wenceslao Rose MD Glucose [Mass/Vol] 95 mg/dL Normal 70-99 [facility] Comment on above: Performed By: #### P RCAL, BMPX, CRP, PT #### [address] [address] Library Specialist: Wenceslao Rose MD Potassium [Moles/Vol] 3.6 mmol/L Low 3.7-5.3 [facility] Comment on above: Performed By: #### P RCAL, BMPX, CRP, PT #### [facility] [employer] [address] [place] [address] Library Specialist: Wenceslao Rose MD Sodium [Moles/Vol] 138 mmol/L Normal 135-144 [facility] Comment on above: Performed By: #### P RCAL, BMPX, CRP, PT #### [facility] [address] [place] [address] Library Specialist: Wenceslao Rose MD Urea nitrogen [Mass/Vol] 16 mg/dL Normal 8-23 [facility] Comment on above: Performed By: #### P RCAL, BMPX, CRP, PT #### [facility] [employer] [address] [place] [address] Library Specialist: Wenceslao Rose MD Basic Metabolic Panel w/ Ref mitchel to MGon 10-16-2022 Anion gap [Moles/Vol] 11 mmol/L 9 - 17 mmol/L [facility] Calcium [Mass/Vol] 8.1 mg/dL Low 8.6 - 10. 4 mg/dL [facility] Chloride [Moles/Vol] 104 mmol/L 98 - 10 7 mmol/L [facility] CO2 [Moles/Vol] 23 mmol/L 20 - 31 mmol/L [facility] Creatinine [Mass/Vol] 1.13 mg/dL 0.70 - 1.20 mg/dL [facility] GFR/1.73 sq M.predicted MDRD (S/P/Bld) [Vol rate/Area] - PINF [facility] Comment on above: These results are not [...] [Mass/Vol] 95 mg/dL 70 - 99 mg/dL [facility] Interpretation and review of laboratory results Abnormal [facility] Potassium [Moles/Vol] 3.6 mmol/L Low 3.7 - 5.3 mmol/L [facility] Sodium [Moles/Vol] 138 mmol/L 135 - 144 mmol/L [facility] Urea nitrogen [Mass/Vol] 16 mg/dL 8 - 23 mg/dL [facility] C-Reactive Proteinon 023 CRP [Mass/Vol] 86.3 mg/L High 0.0-5.0 [facility] Comment on above: Performed By: #### M G, CBC, BMP #### [facility] [employer] [address] [place] [address] Library Specialist: Wenceslao Rose MD CRP High sensitivity method [Mass/Vol] 86.3 mg/L High 0.0 - 5.0 mg/L [facility] Interpretation and review of laboratory results Abnormal [facility] CBC with Auto Differentialon 10-16-2022 Absolute Eos # 0.13 [place] [facility] Absolute Immature Granulocyte 0.00 [facility] Absolute Lymph # 0.82 [facility] [place] # 0.88 High [facility] RS Basophils (Bld) [#/Vol] 0.00 10*3/uL [facility] Basophils/100 WBC (Bld) 0 % 0 - 2 % [facility] Eosinophils/100 WBC (Bld) 2 % 1 - 4 % [facility] Hematocrit (Bld) [Volume fraction] 33.5 % Low 40.7 - 50.3 % [facility] Hemoglobin (Bld) [Mass/Vol] 10.2 g/dL Low 13.0 - 17.0 g/dL [facility] Immature granulocytes/100 WBC (Bld) 0 % 0 [facility] Interpretation and review of laboratory results Abnormal [facility] Lymphocytes/100 WBC (Bld) 13 % Low 24 - 44 % [facility] MCH (RBC) [Entitic mass] 22.5 pg Low 25.2 - 33.5 pg [facility] MCHC (RBC) [Mass/Vol] 30.4 g/dL 28.4 - 34.8 g/dL [facility] MCV (RBC) [Entitic vol] 73.8 fL Low 82.6 - 102.9 fL [facility] Monocytes/100 WBC (Bld) 14 % High 1 - 7 % [facility] Morphology Ck (Bld) [Interp] ANISOCYTOSIS PRESENT [facility] Morphology Ck (Bld) [Interp] MICROCYTOSIS PRESENT [facility] NRBC Automated 0.0 0.0 per 100 WBC [facility] Platelet distribution width (Bld) [Ratio] 22.2 % High 11.8 - 14.4 % [facility] Platelets (Bld) [#/Vol] See Reflexed IPF Result [facility] RBC (Bld) [#/Vol] 4.54 10*6/uL 4.21 - 5.77 m/uL [facility] Segmented neutrophils/100 WBC (Bld) 71 % High 36 - 66 % [facility] Segs Absolute 4.47 [facility] WBC (Bld) [#/Vol] 6.3 10*3/uL [facility] CBC with Diffon 10-16-2022 Abs. Basophil 0.00 k/uL Normal 0.0-0.2 [facility] Comment on above: Performed By: #### C DP, IPF #### [facility] [employer] [address] [place] [address] Library Specialist: Wenceslao Rose MD Abs.Imm.Granulocyte 0.00 k/uL Normal 0.00-0.30 [facility] Comment on above: Performed By: #### C DP, IPF #### [place] [address] Library Specialist: Wenceslao Rose MD Abs.Neutrophil (Seg) 4.47 k/uL Normal 1.8-7.7 [facility] Comment on above: Performed By: #### C DP, IPF #### [address] [address] Library Specialist: Wenceslao Rose MD Basophils/100 WBC (Bld) 0 % Normal 0-2 [facility] Comment on above: Performed By: #### C DP, IPF #### [address] [address] Library Specialist: Wenceslao Rose MD Eosinophils (Bld) [#/Vol] 0.13 10*3/uL Normal 0.0-0.4 [facility] Comment on above: Performed By: #### C DP, IPF #### [facility] [employer] [address] [place] [address] Library Specialist: Wenceslao Rose MD Eosinophils/100 WBC (Bld) 2 % Normal 1-4 [facility] Comment on above: Performed By: #### C DP, IPF #### [address] [address] Library Specialist: Wenceslao Rose MD Immature granulocytes/100 WBC (Bld) 0 % Normal 0 [facility] Comment on above: Performed By: #### C DP, IPF #### [address] [address] Library Specialist: Wenceslao Rose MD Lymphocytes (Bld) [#/Vol] 0.82 10*3/uL Low 1.0-4.8 [facility] Comment on above: Performed By: #### C DP, IPF #### [address] [address] Library Specialist: Wenceslao Rose MD Lymphocytes/100 WBC (Bld) 13 % Low 24-44 [facility] Comment on above: Performed By: #### C DP, IPF #### [address] [address] Library Specialist: Wenceslao Rose MD Monocytes (Bld) [#/Vol] 0.88 10*3/uL High 0.1-0.8 [facility] Comment on above: Performed By: #### C DP, IPF #### [address] [address] Library Specialist: Wenceslao Rose MD Monocytes/100 WBC (Bld) 14 % High 1-7 [facility] Comment on above: Performed By: #### C DP, IPF #### [address] [address] Library Specialist: Wenceslao Rose MD Morphology Ck (Bld) [Interp] ANISOCYTOSIS PRESENT Normal [facility] Comment on above: Result Comment: MICR OCYTOSIS PRESENT Performed By: #### C DP, IPF #### [address] [address] Library Specialist: Wenceslao Rose MD Neutrophil (Seg) 71 % High 36-66 [facility] Comment on above: Performed By: #### C DP, IPF #### [address] [address] Library Specialist: Wenceslao Rose MD Erythrocyte distribution width (RBC) [Ratio] 22.2 % High 11.8-14.4 [facility] Comment on above: Performed By: #### C DP, IPF #### [address] [address] Library Specialist: Wenceslao Rose MD Hematocrit (Bld) [Volume fraction] 33.5 % Low 40.7-50.3 [facility] Comment on above: Performed By: #### C DP, IPF #### [address] [address] Library Specialist: Wenceslao Rose MD Hemoglobin (Bld) [Mass/Vol] 10.2 g/dL Low 13.0-17.0 [facility] Comment on above: Performed By: #### C DP, IPF #### [place] [address] Library Specialist: Wenceslao Rose MD MCH (RBC) [Entitic mass] 22.5 pg Low 25.2-33.5 [facility] Comment on above: Performed By: #### C DP, IPF #### [address] [address] Library Specialist: Wenceslao Rose MD MCHC (RBC) [Mass/Vol] 30.4 g/dL Normal 28.4-34.8 [facility] Comment on above: Performed By: #### C DP, IPF #### [address] [address] Library Specialist: Wenceslao Rose MD MCV (RBC) [Entitic vol] 73.8 fL Low 82.6-102.9 [facility] Comment on above: Performed By: #### C DP, IPF #### [address] [address] Library Specialist: Wenceslao Rose MD NRBC Automated 0.0 per 100 WBC Normal 0.0 [facility] Comment on above: Performed By: #### C DP, IPF #### [address] [address] Library Specialist: Wenceslao Rose MD Platelet Count See Reflexed IPF Result Normal 138-453 [facility] Comment on above: Performed By: #### C DP, IPF #### [address] [address] Library Specialist: Wenceslao Rose MD RBC (Bld) [#/Vol] 4.54 10*6/uL Normal 4.21-5.77 [facility] Comment on above: Performed By: #### C DP, IPF #### [address] [address] Library Specialist: Wenceslao Rose MD WBC (Bld) [#/Vol] 6.3 10*3/uL Normal 3.5-11.3 [facility] Comment on above: Performed By: #### C DP, IPF #### [address] [address] Library Specialist: Wenceslao oRse MD Immature Platelet Fractionon 10-16-2022 Platelet, Fluorescence 154 [address] [employer] [facility] [employer] Comment on above: ORDERED BY LAB Platelet, Immature Fraction 5.3 % 1.1 - 10.3 % [facility] [employer] Comment on above: ORDERED BY LAB [facility] [employer] Microscopic Urinalysison Casts UA 5 TO 10 HYALINE Refe rence range defined for non-centrifuged specimen. [facility] [employer] Epithelial Cells UA 2 TO 5 [facility] [employer] RBC clumps Auto (Urine sed) [#/Area] TOO NUMEROUS TO COUNT [facility] Comment on above: Reference range defi radha for non-centrifuged specimen. WBC, UA 50 TO 100 [facility] PLT, Immature Fract.on 10-16 Platelet, Fluoresc. 154 k/uL Normal 138-453 [facility] Comment on above: Result Comment: ORDE RED BY LAB Performed By: #### C DP, IPF #### [place] [id number] Library Specialist: Wenceslao Rose MD PLT, Immature Fract. 5.3 % Normal 1.1-10.3 [facility] Comment on above: Result Comment: ORDE RED BY LAB Performed By: #### C DP, IPF #### [address] [phone] Library Specialist: Wenceslao Rose MD PTon 10-16-2022 INR Coag (PPP) [Relative time] 1.2 {INR} Normal [facility] Comment on above: Result Comment: Therapeutic Range: Moderate Anticoagulant Intensity: INR = 2.0-3.0 High Anticoagulant Intensity: INR = 2.5-3.5 Performed By: #### P RCAL, BMPX, CRP, PT #### [address] [phone] Library Specialist: Wenceslao Rose MD PT Coag (PPP) [Time] 12.4 s High 9.1-12.3 [facility] Comment on above: Performed By: #### P RCAL, BMPX, CRP, PT #### [address] [phone] Library Specialist: Wenceslao Rose MD Procalcitoninon 10-16-2022 Procalcitonin 0.20 ng/mL High <0.09 [facility] Comment on above: Result Comment: Suspected Sepsis: [...] entered into the Change in Procalcitonin Calculator ([email or web address]) to determine the patient's Mortality Risk Prognosis In healthy neonates, plasma Procalcitonin (PCT) concentrations increase gradually after , reaching peak values at about 24 hours of age then decrease to normal values below 0.5 ng/mL by 48-72 hours of age. Performed By: #### M G, CBC, BMP #### [employer] [facility] [place] [address] Library Specialist: Wenceslao Rose MD Interpretation and review of laboratory results Abnormal [facility] [employer] Procalcitonin [Mass/Vol] 0.2 ng/mL High NINF - 0.09 ng/mL [facility] [employer] Comment on above: Suspected Sepsis: <0.50 ng/mL [...] entered into the Change in Procalcitonin Calculator (www.[email or web address]) to determine the patient's Mortality Risk Prognosis In healthy neonates, plasma Procalcitonin (PCT) concentrations increase gradually after , reaching peak values at about 24 hours of age then decrease to normal values below 0.5 ng/mL by 48-72 hours of age. [facility] Protime-INRon 10-16-2022 INR Coag (PPP) [Relative time] 1.2 {INR} [facility] Comment on above: Therapeutic Range: Moderate Anticoagulant Intensity: INR = 2.0-3.0 High Anticoagulant Intensity: INR = 2.5-3.5 Interpretation and review of laboratory results Abnormal [facility] PT Coag (PPP) [Time] 12.4 s High [facility] UA w/Reflex Cultureon 2022 Bilirubin, SemiQt,Ur Negative Normal NEG [facility] Comment on above: Performed By: #### M G, CBC, BMP #### [employer] [address] [place] [address] Library Specialist: Wenceslao Rose MD Blood, Urine LARGE Abnormal NEG [facility] Comment on above: Performed By: #### M G, CBC, BMP #### [employer] [address] [place] [address] Library Specialist: [place] Rose MD Clarity (U) Cloudy Abnormal CLEAR [facility] Comment on above: Performed By: #### M G, CBC, BMP #### [employer] [address] [place] [address] Library Specialist: Wenceslao Rose MD Color (U) Yellow Normal YEL [facility] Comment on above: Performed By: #### M G, CBC, BMP #### [employer] [address] [place] [address] Library Specialist: Wenceslao Rose MD Glucose Ql (U) Negative Normal NEG [facility] Comment on above: Performed By: #### M G, CBC, BMP #### [employer] [address] [place] [address] Library Specialist: Wenceslao Rose MD Ketones Ql (U) MODERATE Abnormal NEG [facility] Comment on above: Performed By: #### M G, CBC, BMP #### [address] [address] Library Specialist: Wenceslao Rose MD Leukocyte esterase Test strip Ql (U) SMALL Abnormal NEG [facility] Comment on above: Performed By: #### M G, CBC, BMP #### [address] [address] Library Specialist: Wenceslao Rose MD Nitrite,Ur Negative Normal NEG [facility] Comment on above: Performed By: #### M G, CBC, BMP #### [address] [address] Library Specialist: Wenceslao Rose MD PH,Ur 5.5 Normal 5.0-8.0 [facility] Comment on above: Performed By: #### M G, CBC, BMP #### [address] [address] Library Specialist: Wenceslao Rose MD Protein Ql (U) 2+ Abnormal NEG [facility] Comment on above: Performed By: #### M G, CBC, BMP #### [facility] [employer] [address] [place] [address] Library Specialist: Wenceslao Rose MD Spec. [place],Ur 1.023 Normal 1.005-1.03 0 [facility] Comment on above: Performed By: #### M G, CBC, BMP #### [facility] [employer] [address] [place] [address] Library Specialist: Wenceslao Rose MD Urobilinogen,Ur Normal Normal NORM [facility] Comment on above: Performed By: #### M G, CBC, BMP #### [facility] [employer] [address] [place] [address] Library Specialist: Wenceslao Rose MD Urinalysis with Reflex to Cu ltureon 10-16-2022 Bilirubin Urine Negative NEGATIVE [facility] Color, UA Yellow Yellow [facility] Glucose Auto test strip (U) [Mass/Vol] Negative NEGATIVE [facility] Interpretation and review of laboratory results Abnormal [facility] Ketones (U) [Mass/Vol] MODERATE Abnormal NEGATIVE [facility] Leukocyte esterase Auto test strip Ql (U) SMALL Abnormal NEGATIVE [facility] Nitrite Auto test strip Ql (U) Negative NEGATIVE [facility] Protein (U) [Mass/Vol] 5.5 mg/dL 5.0 - 8.0 [facility] N [facility] Protein (U) [Mass/Vol] 2+ Abnormal NEGATIVE [facility] Specific [place], UA 1.023 1.005 - 1.030 [facility] Turbidity UA Cloudy Abnormal Clear [facility] Urine Hgb LARGE Abnormal NEGATIVE [facility] Urobilinogen, Urine Normal Normal [facility] Urinalysis,Microon 3 Casts 5 TO 10 HYALINE Normal 0-8 [facility] Comment on above: Result Comment: Refe rence range defined for non-centrifuged specimen. Performed By: #### M G, CBC, BMP #### [employer] [address] [place] [address] Library Specialist: Wenceslao Rose MD Epithelial cells LM Ql (Urine sed) 2 TO 5 Normal 0-5 [facility] Comment on above: Performed By: #### M G, CBC, BMP #### [employer] [address] [place], [place] [phone] Library Specialist: Wenceslao Rose MD Urine RBC's TOO NUMEROUS TO COUNT Normal 0-4 [facility] Comment on above: Result Comment: Refe rence range defined for non-centrifuged specimen. Performed By: #### M G, CBC, BMP #### [employer] [address] [place] [phone] Library Specialist: Wenceslao Rose MD Urine WBC's 50 TO 100 Normal 0-5 [facility] Comment on above: Performed By: #### M G, CBC, BMP #### [facility] [employer] [address] [place] [phone] Library Specialist: Wenceslao Rose MD Tobacco Screening.on 023 Adult depression screening assessment No [facility] [employer] mariel 250 DO Work Phone: Fall risk assessment a) No falls within the last year [facility] mariel 250 DO Work Phone: Tobacco use status CPHS b) No [facility] [employer] mariel 250 DO Work Phone: Tumor Staging Formon 022 Tumor Staging Form [id number]:127 Normal [facility] URINALYSIS, REFLEX MICROSCOP ICon 05-06-2022 Bilirubin Ql (U) Negative Negative [facility] Clarity (Unsp spec) Turbid Abnormal Clear [facility] Color (U) Red Abnormal Yellow [facility] Glucose Test strip (U) [Mass/Vol] Negative Negative [facility] Hemoglobin Ql (U) 3+ Abnormal Negative [facility] Ketones Ql (U) Negative Negative [facility] Leukocyte esterase Test strip Ql (U) 75 Danilo/mL Abnormal Negative [facility] Nitrite Ql (U) Negative Negative [facility] pH (U) 7.0 [pH] 5.0 - 8.[address] [facility] Protein (U) [Mass/Vol] 1+ Abnormal Negative [facility] RBC LM.HPF (Urine sed) [#/Area] /[HPF] Abnormal 0-3 /HPF [facility] Specific gravity (U) [Rel density] 1.008 1.005 - 1.[address] [facility] Urobilinogen Ql (U) Negative Negative [facility] WBC LM.HPF (Urine sed) [#/Area] 11-25 /HPF Abnormal 0-5 /HPF [facility] 03-30-2022 Screens [id number]:127 Normal [facility] Ambulatory Visit Summaryon 0 03-29-2022 Ambulatory Visit Summary TAURUS GARCIA :1945 Visit Date:03/29/2022 Ambulatory Visit Instructions Your Diagnosis Malignant neoplasm of lateral wall of bladder BPH (benign prostatic hyperplasia) Gross hematuria Tests Performed CT Abdomen/Pelvis w/ Contrast -- Results Pending -- Please visit your patient portal for your results or contact your primary care physician. Your Care Team Attending Physician - Yoko Rizvi Jr., MD Primary Care Physician - KOMAL NGUYEN MD [...] and CT Where: [facility] [address] , [place] [address] [phone] Medications What How Much When Instructions Unchanged [...] adult Pulmonary embolism Radiculopathy Urge incontinence Normal [facility] Patient Educationon 03-29-20 Patient Education [...] including vitamins, herbs, eye drops, creams, and iadp-mut-ktrngfw medicines. ? Any problems you or family [...] tells you to take them. ? Taking yvay-sct-tgihwvj medicines, vitamins, herbs, and supplements. Tests You [...] around (more content not included)... Normal [facility] Urology Office/Clinic Noteon 03-29-2022 Urology Office/Clinic Note [...] We will (more content not included)... Normal [facility] Comment on above: Result Comment: Elec tronically Signed By: Yoko Rizvi Jr., MD\.br\Date and Time Signed: 03/29/22 12:04 EDT\.br\Electronically Co-Signed [...] Impaired glucose tolerance test / SNOMED CT 994377857 / Confirmed BPH (benign prostatic hyperplasia) / SNOMED CT 494366000 / Confirmed Calcaneal spur / SNOMED CT 76635503 / Confirmed Gross hematuria / SNOMED CT 247192712 / Confirmed Hypercholesteremia / SNOMED CT 70923944 / Confirmed Hypertension / SNOMED CT 3727558400 / Confirmed Lumbosacral spondylosis without myelopathy / SNOMED CT 30207642 / Confirmed Macular edema / SNOMED CT 81860855 / Confirmed Bladder mass / SNOMED CT 8771878040 / Confirmed Myasthenia gravis / SNOMED CT 356646805 / Confirmed Radiculopathy / SNOMED CT 319475190 / Confirmed Obesity / SNOMED CT 4044396925 / Confirmed Obstructive sleep apnea, adult / SNOMED CT 0503963530 / Confirmed Obstructive apnea / SNOMED CT 181697032 / Confirmed Pulmonary embolism / SNOMED CT 24279317 / Confirmed Histories Past Medical History: No active or resolved past medical history items have been selected or recorded. Family History: Cancer Mother Heart disease Father Procedure history: Cystoscopy and transurethral resection of bladder ([id number]) on 03/03/2022 at 76 Years. Cystoscopy ([id number]) on 12/27/2021 at 76 Years. Transurethral water vapor ablation of prostate ([id number]) on 02/16/2017 at 71 Years. CE - Cataract extraction ([id number]). Cardiac catheterization ([id number]). Neck Surgery ([id number]). Comments: 02/17/2022 14:13 EDT - Davina ROMERO, [...] results Radiology results ECG interpretation Condition Plan [employer]hes[employer] (ASA) physical status classification: Class III. Anesthetic Preoperative Plan Anesthesia: General. . Anesthetic plan, risks, benefits, and alternatives discussed with the patient and/or family. Risks discussed: nausea, vomiting, headache, sore throat, dental injury, serious complications. Patient verbalized understanding. Communication: face to face with (patient 5 minutes, Pt educated on the importance of smoking cessation.). Normal [facility] Comment on above: Result Comment: Elec tronically Signed By: Jhonny Fuentes Jr, DO\.rubi\Date and Time Signed: 03/23/22 12:18 EDT Coding Summary.on 03-14-2022 Coding Summary. CD:[id number] Gh0bWw +PGhlYWQ+MD1PWYBeV13duASft U7QO0fWMW3KLKOSVSBCFN1DDN8 kfBF2YWzsL4SqrxSa IkzopJFfFA20DCc6RIN3vClxIB eeoM9czYWtF0z6EcIwPM86wV73 ADggLWPhLaO0YeEzitsjiTBv T0nvApImmRFuGzk+PHRhYmxlIH bjGKDjOHplDROjJnRnwTzuOI4i Jb1lXCKoQAQvbNkscUOqFcNb h8dvDKGyHQlzKS2axLftQ8ZgkO Y8LZVai1k5Vu81tYY+PHRkIHN0 xFrdDWtel960OjPkr2sgGDQ0 tRLgOSrkLOI7R27vu2Z8TIAxOM IjPRS0yML4aJ5dyDqoofxlD8Hl dRAyGtL1AMX7tLRwzI7taJkv zyltoE9kWbx+K36FPE6CUICECP 2OAmt2B4PcZdjnwWL+HY59CRPd KL17vMAdnKJll4cweHz2KiPv GXGfAQP1sTalGMtkk7TiBVDhN0 9niDHuq6U5PIWbpRfjdINiBrSe hIO5gG2nBBivkwpqk4gjrnmt Usbpw1hxfn36qJ00T15vHBveEO SsTBS8BWMpULIdoWqops1htI9a Ii8+JCpdg4ewb9bsvOv6CsJy CTNnqaNxmMmcGPY2j7HjXh76R3 PnsNxrw1BjFbx4wy90vOOmb9I8 dSJ0ZDgiECHrtO9pTFbkWmK5 SRUzLoYbsG12yNYnILwkVy1coX dhgEauNH6dXYAdsykvYLRztV8u MAPxnORjbJbnVD1oMMOzkmvx k819YwAqRWS7WKVzhMLqQ9PbwU 7dKpSqVEJlFLGdY6AlpPOdTGdp Z614MXvzLaX9GTBxmwVpD8Ny OGDfbLtfQjX7k2V8Lq5Uz3Gnwe vmTUQ2UEnhAIN9QjR5AhIfMmG0 C3EpFip2MLKuxWzvPI8kA3Bt TOYxhezwogzvsPG9YSUeSJQxoO 20wSQpOSijNx7zr5B1p863SHJr MPVwoH22Em7hnOjuPOAlsDXB fX9pjmvke0skadpbXbQrVXMnBH g4YPj6WZBypQzrAqMzBOU2MxK9 GTK0jHDprV7sdLvogvtjqH7e Oyc+V64zdI2tCUP6IZF3dhnhUB HzisRhNV34AI92F1YsAepehHKn bGU+IPUudvCmqShaFS5sFrPy a5gsa4OtPShmN0SsAASrMLcbLu y9QIZiUDG5pBU0aW3lYDZfXTob p9I0jMQ3F3AlwrEyut9rv2lk MRIlMEgfF09hqSWew3V7KIUzwL I6KSYaaRgiWfQmaE03Gnm+PGNv kCski3BkDmjlf9bgf1ciiJa3 KkAjWAZirkAtqOjsZUS8t3LpYb 97L15mDDdkCWJcNMVzLZWkZBHg vLcluw5wlK8bWg8+PGNvbCB3 vIO0iM6uIBAfQgI5ZEtqY452Gp MjrIMaUgmhf0hbh8vphMm1MtTb NIYbdmNrzLolFXM6v4KyOt33 V06jYEsuUUPoKGJyVQAaXAHwzC fwqa0wxY4xYy8+WU0ff0jwiz35 lN44iGF+EVOvMFD7cAxuNGrt TMLmpV3qCCijZrW5HNRxVuHykN 91qSGjWBjaGq6vrIujhPwrZP9j KDMcguxck935WfIeo0uoAMBg pYYgRKzpQRW1M43sz6G1ZHUrYF VrCHT3vVJ5dE3dwIlixinwcIDw zBcjleOyaZfqHEzyWBamP706 IHRvcDsnPlBhdGllbnQgTmFtZT i3W9MjTls8IOSazBloIR8awUHw ECsuKc1rfViiuHfeWP8wZBOy zopnv779AvXdm3eaVTPhfVInZH vpBQE2O02az3D4YDNlUDUiLDK9 lFY3tF8ysLffpxyxoUDxoEjq dlLmwEdgBDaiMYufH586YZIkeV szCrQawbEcTVQplSC1EM12KE64 jOOxg0U8zEH0B4MnHOWaxwjh rsljqDW6VINoBDQtfG51Wq4swH pePp5aUCGcFWG5LBAwdYDgX8Vm rY3vLdAmEVOgVUAbI8OdfCIh RGffE367XInhKyI6JYRemrQcU0 YeFIKnvKgkLcW3f9O0Aq2JS3L5 XG69AZ86tYNao3K3iOX0K7Ii IGDwrtxeqfzfkPS1LRFkRICbpZ 93Uz4xeEzaNu6cXARsHZE9EUEk nMDdY4RlyX6kUcOzHCFuIOYh G7HgiSNlGNnhC962LAtyBcA3JP HhwdKwH6ThEYRknTebOcD6x6H0 Vs3FIZq7LH12AO29kICuc4I6 pIE9H0BlBVUlputditqhsWG9DQ UeYRCmvK76Sv6ymPzrKz4eTIHm JHO1GAMitGAgP0FbuV0nQgCp FDXmLZSqP8EexRXbAPhvH656WM kaTxO1PTGpdgVeM8StXWVarAum AcQ8t1S4Qf0JZBCzMC37XCM9 fSJ2LG98VU65W1HtOqdlvXLosQ U+PHRhYmxlIHdpZHRoPScxMDAl ZbGcpWmmXP9uBv8tNFRbMITj oDrcxBGrUsIpc8lpVFIfDGrhYG 2zbZtkP2KuwKW0UFJkq8z7Di31 Z32rR8LrzFU+SEOriHM3bDZ0 xF8iLkUaAeX7BOptL358VkGqjI GnJosjz4enc1nznYj6RsY9BDCs vkJynYobNHH5c4LfKb90N92a IHdpZHRoPSIxNSUiIHZhbGlnbj 7rzE2nPk6+GFLmtAO9pNI9mI9i KvEmLuA0NEukB995DjAmlPQg Ztqte3twy9zdsZr4MbYqVBPczf BszBnxZXF2y2FwXc80P7GcfAef s0FfCpt1vu63tRUzp5H8wFK3 Z5OdBYKeutcbrFVnqKebRP2iXS EybkotCGKemC6hPAYiI8k7MiUa ItO3JMynI5MhapQ3BUTihRTb UMxyFQZ2B44cb2B8PTIbMPRnWI L4aAI7lX8qhFuojfpjmTUqcLxc raGiwNldNIxuLUlbI340XXNj tHxkRWKzjH6iSHYfbXPeqJwqZO 7tXJVatelfWkGTF56LQzesO5eR JmjIWoKQSH72UF15wDItt1F9 mQZ9X5LoWVTgardtfpdbsKR0CK RcUMYtmW73zJGjUYsaXz5qh9P6 o083COOaXFAniJ12Go5tbHhr ZIYbkFGGwS8voncqf1imauyeSe OzTPVpSNu8NYm7AEJheTnaHmBb UCW1QbW5WWC5wGHkoO1szEdb lllmyX3nCum+VXHgFFAnEMw4KB wvdGQ+QUAgAQL8gCysTIdrQDSk uT9xOYXeI2f2KqPvUhK8FRid J3UdEXVusdnpBp26uU8qSlEiEu C8GRqdA9GvicF5KKElpLUqRVws UZE9C08mf7Y8HDOvKVOqBFZ2 qYO1tP2gbCnhxmwlqUMkcJpmae YcfTvaDTzrKObeP500FZXkkLcn Yoi5JSpjHYPyCG99GR19iQOw r6G6xPQ2P5IyKOQlxddvozqtsR W0PYQjPIFmfZ52yKMgFTppOi7b r0T8k954ZAIoDANxcL62Xz5s xEnwWFDreYJZrC0kbkqpv5nvip qiIbGgJBKdKWt8ZBo4QCZwjYea CoOwUHK2JuJ9BFX6xWChiU4v xIamiojfrF3bIfv+TWFsZTwvdG Q+HNDgPTR4aLlyLAajBRVkaA2i TAFcU6a0GzMeSbM6VDlkQ1Zy NOLdhwtdKu35hD7qAoCtUnW8CJ haG5FtqvX7EALohBTgGPywPWU9 K27rm2S8EJMdUMZzOVS5yYD7 zX9eiQoofzldaAKskJqwjmHrbI gbPKwxBRiaN444XAAszOcwDxQo JkJjDTLhvxpuY9JcBIXRXDlp F1EaC9TnhJdjsYZ+ER74tj66S6 UxFjrkIgx3PXJoDGM5ySI2pJ6r NQKpRFcle6C6wUS2O7HxkgSz nn4dx8otNVLxKMwzN87veILwd4 V8MAYowYB6WUVtjLkpEoKauV52 Oyc+AXRzpLvrf0PnKlxnt5iv f9lchYv4HmMyWCDtnfOteXycVL A1k6QmRx02M82jVIheQLMhEOXr AEWxKHGyvCwjew4bfI6cFc1+ HKAinBX5gAB8qJ8xZqRlNkN5EY bbJ729IgMwtCXmBudsy2ohi4yu hHx7BvYzNCRydxPhdDwqCSN3 c9QuSz12C4VjbGfyr7ApAfz3bd 46oDLcl8W7xJB1S7SbCELovmvs oOGcuTfwAB4zPIUaiexiIFRx kS1nRJZiV7n7YyDeMfR0OThiG4 SzazQ2CMPsuETwKNSwcVFSkY0s svhqb1lbdxoeGtApLIQdGLc9 DCr1WCAqgUouMxYzDRP3OyF1XE N8xQIbcN8znHjbgveikC4cDcf+ KIn9b1zdtJMaKR9bkMK1LH50 MV41dYBat6M3nAE6F6UkYWWkdo nlbylgqAH8BHUnVSIoiY27Rs3d ePjjKd7hBYAkCYB8QDExyLZl H2UlrV1sEwMmLWJyKBWbK4XnxT NjXKcjN493HZqtWrB1GVGshmOh I6WmVKGsuOdxKeU7z0A8Tq0E GF03HG61PQ97hUJkc2Y0xFS5Z3 PaRBTipwlibrmhoFH5EQJrFAQp oA35Tb0drAcyYu6qHMIjSKS1 RZTepAMtP6VdnV2iSyWdRUFqVX IkJ7DfgAGrILyjB398KBfzSsY9 VCPcmrIuX2CqIQYokHaxPfM1 c7W5Ju5MTb50QE86XP92qTAij9 I3mBK0S8QgKQPeotaacxxnnVL1 ZRPfMAYlgI91Ws4kyRvvNs4d UAGkQXZ2UYDqqRKsO6CggY0sAo HqPAOhTYSaR3EamXUwMRujK000 QLhjThK0MIAommHeJ1ApQOHs rEmoPqB5y5L6Ra7JDUormyc7V9 RkPjwvdHI+TM10RKUdXZ43fFLn jCPyz7wrjKq9OqBsXIDoDLC2 eWxl (more content not included)... Normal [facility] Progress Note-Physicianon Progress Note-Physician Patient: TAURUS GARCIA Age: 76 years Sex: Male : 1945 Associated Diagnoses: None Author: Jhonny Fuentes Jr, DO Postoperative Information Post Operative Note: Post Anesthesia Care Unit. Anesthetic utilized: General. Health Status Allergies: Allergic Reactions (Selected) No Known Medication Allergies Problem list: All Problems Impaired glucose tolerance test / SNOMED CT 330873062 / Confirmed BPH (benign prostatic hyperplasia) / SNOMED CT 507371317 / Confirmed Calcaneal spur / SNOMED CT 11149333 / Confirmed Gross hematuria / SNOMED CT 196551032 / Confirmed Hypercholesteremia / SNOMED CT 77359057 / Confirmed Hypertension / SNOMED CT 6102760500 / Confirmed Lumbosacral spondylosis without myelopathy / SNOMED CT 04149996 / Confirmed Macular edema / SNOMED CT 13055460 / Confirmed Bladder mass / SNOMED CT 2707773598 / Confirmed Myasthenia gravis / SNOMED CT 436033119 / Confirmed Radiculopathy / SNOMED CT 893450633 / Confirmed Obesity / SNOMED CT 6509573214 / Confirmed Obstructive sleep apnea, adult / SNOMED CT 0286368645 / Confirmed Obstructive apnea / SNOMED CT 363492772 / Confirmed Pulmonary embolism / SNOMED CT 10182523 / Confirmed Physical Examination Vital Signs 03/03/2022 [...] Pressure 104 mmH (more content not included)... [facility] Comment on above: Result Comment: Elec tronically Signed By: Alfredo Watts DO Jhonny Morales\Date and Time Signed: 03/14/22 08:36 EDT H&P Updateon 03-10-2022 H&P Update [id number]#1.00CD:127 [facility] H&P Update [id number]#1.00CD:127 [facility] Outside Recordson 03-10-2022 Outside Records [id number]#1.00CD:127 [facility] Postoperative Documentson Postoperative Documents [id number]#1.00CD:127 [facility] Coding Queryon 03-07-2022 Coding Query - From: Analisa Salazar To: Autumn Molina MD, Yoko Hair; Sent: 03/07/2022 13:03:40 EDT ! Subject: Coding Query Dr Rizvi, Please document the size of the bladder tumor- -Less than 0.5 cm -0.5 up to 2.0cm -2.0 to 5.0 cm -Larger than 5.0 cm Thank you, Kimberlee HIM Coding [facility] IntraOperative Documentson 0 03-07-2022 IntraOperative Documents [id number]#1.00CD:127 [facility] Consent for Anesthesiaon Consent for Anesthesia [id number]#1.00CD:127 [facility] Discharge Instructionson Discharge Instructions [id number]#1.00CD:127 [facility] IntraOperative Documentson 0 03-04-2022 IntraOperative Documents [id number]#1.00CD:127 [facility] IntraOperative Documents [id number]#1.00CD:127 [facility] Main OR Intraoperative Recor arianna 03-04-2022 Main OR Intraoperative Record IntraOp Document Type FT Summary Primary Physician: Yoko Rizvi Jr., MD Finalized Date/Time: 03/04/22 12:28:36 Pt. Name: TAURUS GARCIA Carrie Orellana./Sex: 1945 Male Med Rec #: [id number] Physician: Yoko Rizvi Jr., MD Financial #: [id number] Pt. Type: A Room/Bed: [place] [address] Admit/Disch: 03/03/22 07:42:53 - 03/03/22 13:20:00 Institution: [...] Zuleyma Alfonso Role Performed Surgeon - Primary [employer] - Primary [employer] - Primary Time In 03/03/22 09:59:00 03/03/22 [...] Scrub - Primary Scrub - Primary Anesthesiologist Teletype Adjuster Time In 03/03/22 09:59:00 03/03/22 09:59:00 03/03/22 09:59:00 Time Out 03/03/22 11:23:00 03/03/22 11:23:00 03/03/22 11:23:00 Procedure CYSTOSCOPY TURB(.) CYSTOSCOPY TURB(.) CYSTOSCOPY TURB(.) Comments precepting orienting Dr. Fuentes tongue and quarter stitcher Last Modified By: Zuleyma Martinez Leanne M [...] and tissue Entry 1 Skin Integrity Intact, Rudyard, Warm, and Skin Abnormality No Dry Outcomes Met? Yes Last Modified By: Zuleyma Martinez 03/03/22 10:42:49 Post-Care Text: The patient is free from signs and symptoms of injury caused by extraneous objects Patient Positioning FT Pre-Care Text: Identifies physical alterations that require additional precautions for procedure-specific positioning, verifies presence of p (more content not included)... Normal [facility] Main OR PACU I Recordon 02-18 Main OR PACU I Record PACU Phase I Docum ent Type FT Summary Primary Physician: Yoko Rizvi Jr., MD Finalized Date/Time: 03/04/22 07:47:44 Pt. Name: TAURUS GARCIA/Sex: 1945 Male Med Rec #: [id number] Physician: Yoko Rizvi Jr., MD Financial #: [id number] Pt. Type: A Room/Bed: [place] [address] Admit/Disch: 03/03/22 07:42:53 - 03/03/22 13:20:00 Institution: [...] Signed By: Debra Boyle RN 03/03/22 15:56 [place] ROMERO, Debra 03/03/22 15:56 Lev ROMERO, Lucy 03/04/22 07:47 Normal [facility] Preoperative Documentson Preoperative Documents [id number]#1.00CD:127 Normal [facility] Preoperative Documents [id number]#1.00CD:127 Normal [facility] Consent for Procedure/Surger yon 03-03-2022 Consent for Procedure/Surgery [id number]#1.00CD:127 [facility] Consent for Treatmenton 02-18 Consent for Treatment [id number]#1.00CD:127 Normal [facility] Inpatient Patient Summaryon 03-03-2022 Inpatient Patient Summary [place] [id number] [facility] Clinical Discharge Instructions PERSON INFORMATION Name: TAURUS GARCIA PHYSICIANS Admitting Physician: Yoko Rizvi Jr., MD Attending Physician: Yoko Rizvi Jr., MD PCP: KOMAL NGUYEN MD Discharge Diagnosis: Malignant neoplasm of overlapping sites of bladder Comment: PATIENT EDUCATION INFORMATION Instructions: Post Op Patient Instructions - FT (CUSTOM) Medication Leaflets: Follow up: With: Address: When: [facility]oko [facility], [address] [place] [address] Business (1) Within 2 to 4 weeks Comments: Reviewed pathology report and plan exudative treatment. Call for any problems. Call for followup appointment MEDICATION LIST [id number], [address] [place], [place] [id number], [phone] cephalexin (Keflex 500 mg Cap) 1 Capsules [...] times a day., Myasthenia Gravis Comment: Normal [facility] Main OR Preoperative Recordo n 03-03-2022 Main OR Preoperative Record PreOp Document Type FT Summary Primary Physician: Yoko Rizvi Jr., MD Finalized Date/Time: 03/03/22 12:14:22 Pt. Name: TAURUS GARCIA/Sex: 1945 Male Med Rec #: [id number] Physician: Yoko Rizvi Jr., MD Financial #: [id number] Pt. Type: A Room/Bed: [facility] Admit/Disch: 03/03/22 07:42:53 - Institution: Case Times [...] Signed By: Zuleyma Martinez 03/03/22 12:14 Normal [facility] Operative Reporton Operative Report Patient: MARGRET GARCIA Age: 76 years Sex: Male : 1945 Associated Diagnoses: None Author: Yoko Rizvi Jr., MD Postoperative Information Procedure: Cystoscopy with transurethral resection of bladder tumor, instillation of Mitomycin-C Date/ Time: 03/03/2022 11:30:00 Preoperative Diagnosis: Malignant neoplasm of overlapping sites of bladder (QXT40-FI C67.8, Discharge, Medical). Postoperative Diagnosis: Malignant neoplasm of overlapping sites of bladder (QYB15-PY C67.8, Discharge, Medical). Performed by: Yoko Rizvi [...] and there was no bleeding a 16 Lithuanian Harrell cath was introduced. 40 mg of [...] . Specimens Removed: Bladder tumor. Prosthesis: 16 Lithuanian Harrell catheter. . Estimated Blood Loss: 5 ml. Medications: Mitomycin-C 40 mg intravesical instillation. Complications: None. Anesthesia type: General. Normal [facility] Comment on above: Result Comment: Elec tronically Signed By: Auutmn Molina MD, Yoko Hair\.rubi\Date and Time Signed: 03/03/22 11:36 EDT Outpatient Surgery Discharge Instructionon 03-03-2022 Outpatient Surgery Discharge Instruction [place] [id number] Patient Discharge Instructions PERSON INFORMATION Name: TAURUS [...] [facility], [address], [place] [address] Business (1) Within 2 to 4 weeks Comments: Reviewed pathology report and plan exudative treatment. Call for any problems. Call for followup appointment Pharmacy Information: You may receive a survey from [employer] asking you to rate your care experience. [...] OCCURRED DURING YOUR HOSPITAL STAY [facility], [address] [place] [phone], [phone] cephalexin (Keflex 500 mg Cap) 1 Capsules [...] Gravis PATIENT EDUCATION INFORMATION Instructions: Medication Leaflets: [facility] Patient Education - Texton 0 03-03-2022 Patient Education - Text [facility] Outside Recordson 03-01-2022 Outside Records [id number]#1.00CD:127 [facility] Formson 02-28-2022 Forms [id number]#1.00CD:127 [facility] Coding Summary.on 02-24-2022 Coding Summary. CD:[id number]:[id number] Gh0bWw +PGhlYWQ+VP7SHHGjU07dzNDih U5JR2xGNN6OHQFHVXXBOL2SYH3 tcRD7WYsqZ6UekwXp UtshwUFsGZ73YSn3ZRB2mQisMC iywI5mqWCiN2a7SmZaKP76nA06 NMnnKZEpXoQ4NkXnlqooxFZs Y8imMvAuuUAzHjd+PHRhYmxlIH ujERWvWPwfKWDiKcCmzEqqTB0v Je0uKRLuMXBzwWfvqUMzIaXy w4vyXVIhETceNE2zvBfcW7GzmK Q1XWJbh3k3Om28vPI+PHRkIHN0 xWoaMVocx771IlIux6dnIQM8 bXYoSNyeBRN4Z75hy0I2QZQaCF SvFGH9gHP4eN6duXzizopvM3Hg tRTbZkN2SKP6eWLatH1gcWai dcetcD6lYfd+W22NAT4DCKZRQC 9PIas7N9FeHxrxcVL+NH94TOBa MO73eDPfgENzv6crrXs1MbZq IGJrTBM7uSjeNHfuj5YqTKPgQ1 2wkEKzy5L3WTAowKfruZDmQtRo sIG5gW3uPHomxbdrg5medkdn Gwngf8bflf93wN23A49zRLrvLC UoQNV3EJCzAUOmfBylrn5dtR4q Ii8+OOggo1pil5wnyWl4DxTw RQBsfnVowUbfHWX1j6LmOa54P7 VkhUgfy3BjIok7ev28qIFqn0T1 kFL7ZAtdBIQqmV9fIJluKwC1 UOEbRuWxzF77dBDtPZbiXx4szF wsrMrlMO9yIVPgaphcMKIhrL9s WRNbuDGshPbeVH5sCAAfsccd s353CzImXBX4JPTyrDHeW3XdoK 1gEjIiSBHaABXfS5JuqWAgJOay Z797APskMlP6QCXmadIvV8Zw IFYlfBujCbL6t2P7Ow6Dm5Cspl qmZOA6FYsxRHG0CjA1MkHkHjT1 S1OdAmn6ROAytSbsHX7iM9Jk OQLdldmzwbhbkMH1VNPdDITqmK 48iAYmBDscRg1ee5M2a173EUXi BTXkpS90Oz0faWnwLJEkrVEW yP3qbygzg6ohdmiaRnUwMTDvME e4TAl3ODJdoBnpJvJsMGG3HaR7 QGZ9rOPpoJ5wvDighkvgdB3q Oyc+S42btH6zGOP2EEU8sopvXJ OhjvPdEF56WC88K2TpIvuuaNQj bGU+RFJjnqYifNscXY8xLlKu q6kug3UlKDgoH9MbKGQwCVehEy e9CRPsEQR1bGC2yL2gEVQxNHel a8X9hNX6S6IikgIwnh6tu7mj DBEdMRdeW41fsRUfw6F9THYwdC R6DXAqmSyjArFizA86Lka+PGNv yChez3GrRlfsh0tsz0tpuEl2 OwStOXNecyRqzUnaKXX0e0FyCr 96Q43pWSnoWHBbEXZzJEXpCJDu gQfptl3pvZ1qJp4+PGNvbCB3 nZB1xY9bUINcBeR7JTdmU780Rk QdxTIfRnoqc3bmx8nezOp5DqWf WMSchlBklMygSCO3v2DnHv22 S49rDAfrJTKiULQsSKUgFIGvfB nyqm3pbD1cTf5+SM0di2wzko71 uJ49hWL+IDXrRDG5zMyfPXea SOTwqE9hCSlnNlT2MXBbUvItiV 06kHEqKNmiXc3kbKgedActCX5c EJRrsczdc315JjBss9zpYLWm eIQvNCfcQZH8L42cg8R3HKVtPG ZxSBH5kRT7qZ0ugNzrspozhYMm aXbymtOmxTzkEKtzVPddV163 IHRvcDsnPlBhdGllbnQgTmFtZT f7D0ArDzu8ZSTncGcpNW8zdSIw JVjhVl7owOnfjOqqBD5yOQZn nlmux929PoEvy9ncHYFawXAhWF elNYD4B22fq4I5ODNaGIQmLOX6 pRD8eR5pgBfzcuqadEMznCde nsZixNlgJZpyYUqcF391ZFMbeN fpOoGzomRjLXTklPP6CL30HM88 qWMbg9I1sVH6R0YyIDDwgdlq xygxdIC2EYRuUHDhjW97Fs8slS esIw8yOOEnFVF4IQIxqYYgO1Np dJ1cHrKgKOGiEQWmN9MeeSHs UMdaY104FBofLgR3YZEoieEcC8 WyYUIwjEbqUmI6e6J6Hl3NT2Y2 NN17CU32jSAfh7R2rVE9B5Sy LFWirnloecdmdZA2BIWgMPLknM 47Rv2wtVuzUk6rKKIkLBS7LRKc sNWjG9BzlY1lWrKvHQVbPQTy O8SiwJCqHNkbS102VQwmQsK6JH UzpzGqH7UpIEQpcEliQpV8s4J4 Rj0XSNy9SV19WJ01eJSye2F8 fWZ8A5JzHQIttwfwrznfiGU0LL CkWIXihQ48Ds2gaQbmCp9zANQy CYF4CQLfgDCbY3DlsT3mCyNm RGEwMDIeR4LgqCWtJZesT570YZ aoPsU3AWReeqZhQ2QoHRPekLqc FkO4g7Q5Zf6FAMUfUY61FGR2 xRY4GV98UI10N4CaFrrruCBfpJ U+PHRhYmxlIHdpZHRoPScxMDAl OeUwbUddZY5wZm2pEXMqTCZb xVkzoPYyBcSnr8dwFWNvLIkjBH 6grRceE3VahCE2KQEnc7j8Np71 A77pU5PocLN+QPCplMP6yDY7 yF4eOdVvLzI9NGlxW749QuTqqQ JvXlbnb9iwp1gakRm1BvC6AIEv qxEuhRynVVU6v8TjAl87K79f IHdpZHRoPSIxNSUiIHZhbGlnbj 7zuM0aIe5+UGRqbZL2iMD1qL9h RnDhSgB2DFegQ067VuLpbCPm Gxsmd9lmb5vptMg5MlPeORPvha LkvTprJBF8u7JgLi01P2YbvOah u7TqDuz6ei72cBDsj2R0xJE7 M8GoWUTsnyjaxQCkvPivCY5aAD RjdorxTFXmlF1kZFBoG0g1AjTc UvG3VHjdC6FgtqH3SKIqbCDa GHmhDEE8C64bv0D7DRQaNJDrPZ H4aGQ6oH7dhNkmztehqSVrqDrc bpNlwApzTPxrJNsjF517IVYs nHamCSEvoZ6eIRBnrYVqrBcrSZ 4xATJdssadTjFIU93VNsrgY8gE VmlXQcSTCD65RZ85qPHsc5Q3 tNL8S0GsRRYnhfezphytwMC7AY ZhXBBmwW20rAMfYOhaMh6dt9W9 z079WRCuTLDdfZ87Mi9czBtv RFJguRUZvB4cvixhs2kwcdutZc RuHMUfTXq4YYd6FHPqrZrjIqPh CET8FwO0VWR4dAIwyK2blIec njllkI9pJwp+WUGdZYXhBKw0VU wvdGQ+MNMdPUO5qPqrDRtqZSZu nX2lNAXrI3u5SgClTzI6ZFum H6HlRQHxtmexHu75uG2vWwQyYk D5OOfvA8PvarM3PMOobEJbSRdc VET3P80th7G1MGSoUCDbPGX2 uVB5tU7wmIquzftdmBAvxJvppx XcaCiyUNamLMayS320KMKkdQnv Nbk2QDpnNLBzGT11SI92cZBb j4E5uVM2G6JpSSVmyirlowaajJ E3PBFkUXCoeP12cDWgLAmxMn5d e7W1f517ETZrZSJkyJ54Ez0m fGnaJTSagNPCeP9kupmuj7zbcf lhRhHiSQIvDCf3CGn5BVSxoYje JlQwBFN6MdR4KGH1wQBhyQ6g pQebdaxinI6rWet+TWFsZTwvdG Q+YEBuUQC1gExfSSczTUYvgR0g QUKzS4x2AhOdDuD0FYisH4Wn TNQqkjvgKh99sB6nUoFaZeZ8VZ ocK6YmeiE2LJVpmVNcUCwvOIN5 N01nz4L4PBPsRPKfMIB1qYR8 vD1ihSopotdnjEKkcQibmiVhnX zjLUjnBMnoW518UESxbNvtRc18 iXVhuRwbaiX0K7QvDpdimQW+ VW21YHToBJ72wJCpuGGll3lvxA w6VoSyEWZjHQK8mSmjEXpcu1Jy ZPElI80mjILkn1Z4TLAbaHcq dUFwAnHrdRT4hT9dUGfespgjj1 ihuzebYnhez5ikfd59uU05N68w IHdpZHRoPSIzMCUiIHZhbGln vx2myV8qTs1+XKUvwCC5jXY7sD 9gIbSoYoF9YOjpJ703IrMffHZq Jrxzg4wmp1yuoDn2DvNtRGFp inKdpDfcROX8q2CyBj84O07gBM hsBIJyMQWtKLUiOPUhiNqddf2y sP0aZt3+BD7eb6moee04yH85 dHI+WZYvYEN6tGrrNOntSNCppQ 6tYRjiYcT2FLUpBhJsjU14tCNu CAbwHm5luPzgyOfeBQ7iETAk lqnle369RjBtb4gbRLCqfKMpUY psZZW9J71zd8C9UBPkBAEsTIR3 oNU9gT8seNmbgetfnOFamSti kyAxdYczUXbfKJneF692EWRbqH kzGpXimMRhB5qesfPBEF6mLnws dGQ+YUSsSFS2uWcbWGigIPIh gE4jHZFkH4a5EwSzWkU5LIlkD7 JxjaZ9QAIuaLZhDKRkkVICnU4l niugl5mwmroiUqQuBXIvVIk5 NKl4RGDplDuvKpThKLU8QuX7CZ D8hUTrbZ0sxEziykeacQ6cIqb+ RklOOjwvdGQ+VWJjFTD4hWxr KDsaNWKabX5oYBBoG9j7EgPdLy H1TSeyW9PdwqW1XOLdyJClQSCo lELAtG5bdnxfc6lrevfwRsVi WEKjZPx8CJc1KQYigGriYpBxRQ J9EiT8MJM1uMCeaH6yyPuckdhp wL7lWdl+TVJOOjwvdGQ+PHRk BDV3yFvnVKsfAEDzkA2uFQUvE4 o4HhNeXfQ0SUxhO1ZqajU1NHOa tOOmFNMlfUTRwY6kjlvpu3if lncsYeYaHETjGDo6GLx8IUKvfW pkFyThXCY2VqZ4BLH9sLUqxY6y tVowpbsaoU5kVgh+CFG0USK2 GB06MJ53S1PuTfmwuBYvtNH+PH RhYmxlIHdpZHRoPScxMDAlJyBz oVrnZE4jAh2eAACvVYJpvYqr cHNl (more content not included)... Normal [facility] Outside Recordson 02-22-2022 Outside Records [id number]#1.00CD:127 Normal [facility] Outside Records [id number]#1.00CD:127 Normal [facility] Outside Records [id number]#1.00CD:127 Normal [facility] C Urineon 02-19-2022 Bacteria identified Cx Nom [...] Locations R1: This test was performed at: [facility], [address] [place] [address], [id number] , [place], Normal [facility] Comment on above: Performed By: #### 1 [id number] #### [facility] [address] [place] [id number] XR Chest 2 Viewson XR Chest 2 [...] M.D. Transcribed by: SANDY Technologist: PABLO Normal [facility] Auto Diffon 02-17-2022 Basophils/100 WBC (Bld) 0.6 % Normal 0.0-2.0 [place] [facility] Comment on above: Order Comment: Order Added by Discern Expert. Performed By: #### 2 938558, 6016982, 28610599, 65832690, 6691205 ####[facility] [address] [place] [address] Basophils/Leukocytes Auto (Bld) [Pure # fraction] 0.0 E9/L Normal 0.0-0.2 [facility] Comment on above: Order Comment: Order Added by Discern Expert. Performed By: #### 2 655576, 1225974, 50642422, 15158143, 8030553 ####[facility] [address] [place] [address] Eosinophils/100 WBC (Bld) 0.2 % Normal 0.0-8.0 [facility] Comment on above: Order Comment: Order Added by Discern Expert. Performed By: #### 2 931594, 0361037, 54199017, 93828135, 2354274 ####[facility] [address] [place] [address] Eosinophils/Leukocytes Auto (Bld) [Pure # fraction] 0.0 E9/L Normal 0.0-0.5 [facility] Comment on above: Order Comment: Order Added by Discern Expert. Performed By: #### 2 629585, 5117070, 24278532, 40619494, 2933351 ####[facility] [address] [place] [address] Lymphocytes/100 WBC (Bld) 9.6 % Low 14.0-50.0 [facility] Comment on above: Order Comment: Order Added by Discern Expert. Performed By: #### 2 742081, 8341492, 46820773, 75308700, 9247538 ####[address] [address] Lymphocytes/Leukocytes Auto (Bld) [Pure # fraction] 0.7 E9/L Low 1.0-4.0 [facility] Comment on above: Order Comment: Order Added by Discern Expert. Performed By: #### 2 630816, 6205266, 71088332, 86854478, 5576820 ####[address] [address] Monocytes/100 WBC (Bld) 7.0 % Normal 4.0-14.0 [facility] Comment on above: Order Comment: Order Added by Discern Expert. Performed By: #### 2 929352, 7573392, 06376527, 67460264, 4891773 ####[address] [address] Monocytes/Leukocytes Auto (Bld) [Pure # fraction] 0.5 E9/L Normal 0.2-1.0 [facility] Comment on above: Order Comment: Order Added by Discern Expert. Performed By: #### 2 394733, 8984578, 23461623, 83548341, 6536242 ####[facility] [address] [place] [address] Neutrophils/100 WBC (Bld) 82.6 % High 36.0-75.0 [facility] Comment on above: Order Comment: Order Added by Discern Expert. Performed By: #### 2 355354, 5389789, 83397992, 55722352, 3707902 ####[facility] [address] [place] [address] Neutrophils/Leukocytes Auto (Bld) [Pure # fraction] 6.3 E9/L Normal 2.0-7.5 [facility] Comment on above: Order Comment: Order Added by Discern Expert. Performed By: #### 2 547944, 8809644, 10047325, 77640393, 7275277 ####[facility] [address] [place] [address] BMPon 02-17-2022 Anion gap [Moles/Vol] 11 mmol/L Normal 6-16 [facility] Comment on above: Performed By: #### 2 256863, 8267364, 88518530, 48521932, 4526811 ####[facility] [address] [place] [address] Calcium [Mass/Vol] 9.3 mg/dL Normal 8.9-11.1 [facility] Comment on above: Performed By: #### 2 216797, 5931395, 47843092, 61909173, 5520985 ####[facility] [address] [place] [address] Chloride [Moles/Vol] 104 mmol/L Normal 101-111 [facility] Comment on above: Performed By: #### 2 456637, 4891292, 30437506, 41316832, 7249984 ####[facility] [address] [place] [address] CO2 [Moles/Vol] 27 mmol/L Normal 21-31 [facility] Comment on above: Performed By: #### 2 188926, 7159644, 18558969, 22770960, 4918448 ####[facility] [address] [place] [address] Creatinine [Mass/Vol] 1.4 mg/dL High 0.5-1.3 [facility] Comment on above: Performed By: #### 2 213327, 0228566, 08562878, 45626167, 0646158 ####[facility] [address] [place] [address] Glucose [Mass/Vol] 144 mg/dL Normal 55-199 [facility] Comment on above: Result Comment: If t his glucose result represents a fasting glucose, interpretation should refer to the following reference range: 55-99 mg/dL Performed By: #### 2 205860, 7645327, 83056299, 20914985, 8715034 ####[facility] [address] [place] [address] Potassium [Moles/Vol] 3.4 mmol/L Low 3.5-5.3 [facility] Comment on above: Performed By: #### 2 923919, 0487464, 10083399, 49514620, 2912590 ####[facility] [address] [place] [address] Sodium [Moles/Vol] 139 mmol/L Normal 135-145 [facility] Comment on above: Performed By: #### 2 961115, 9765484, 85985386, 78647984, 4285237 ####[facility] [address] [place] [address] Urea nitrogen [Mass/Vol] 24 mg/dL High 5-21 [facility] Comment on above: Performed By: #### 2 568937, 6982469, 38654834, 98818381, 1350843 ####[facility] [address] [place] [address] Urea nitrogen/Creatinine [Mass ratio] 17 No Units Normal 10-20 [facility] Comment on above: Performed By: #### 2 430663, 6809004, 69421812, 07222260, 1176792 ####[place] [address] CBC w/ Auto Diffon Erythrocyte distribution width (RBC) [Ratio] 15.2 % High 10.9-14.2 [facility] Comment on above: Performed By: #### 2 035824, 3337432, 27745641, 22256751, 4353364 ####[place] [address] Hematocrit (Bld) [Volume fraction] 35.8 % Low 37.7-49.0 [facility] Comment on above: Performed By: #### 2 994705, 2707217, 52358393, 29032426, 6807304 ####[place] [address]8057 Hemoglobin (Bld) [Mass/Vol] 11.7 g/dL Low 13.5-17.5 [facility] Comment on above: Performed By: #### 2 564523, 0188464, 05771978, 87605231, 0748038 ####[address] [address] MCH (RBC) [Entitic mass] 29.1 pg Normal 27.0-34.0 [facility] Comment on above: Performed By: #### 2 378728, 3467156, 68454948, 41065274, 6141142 ####[address] [address] MCHC (RBC) [Mass/Vol] 32.7 g/dL Normal 31.4-36.0 [facility] Comment on above: Performed By: #### 2 566348, 8041156, 40199011, 54807283, 7577400 ####[address] [address] MCV (RBC) [Entitic vol] 89.1 fL Normal 80.0-100.0 [facility] Comment on above: Performed By: #### 2 499628, 9564499, 23863842, 18517721, 8745533 ####[facility] [address] [place] [address] Platelet mean volume (Bld) [Entitic vol] 9.4 fL Normal 6.4-10.8 [facility] Comment on above: Performed By: #### 2 997034, 1033539, 66907991, 85831142, 5484740 ####[facility] [address] [place] [address] Platelets (Bld) [#/Vol] 185.0 E9/L Normal 150.0-500. 0 [facility] Comment on above: Performed By: #### 2 359129, 0358757, 47580912, 07771985, 9250524 ####[place] [address] [place] [address] RBC (Bld) [#/Vol] 4.0 E12/L Low 4.3-5.9 [facility] Comment on above: Performed By: #### 2 703801, 6050306, 10932719, 69068295, 5888790 ####[facility] [address] [place] [address] WBC corrected for nucl RBC Auto (Bld) [#/Vol] 7.7 E9/L Normal 4.0-11.0 [facility] Comment on above: Performed By: #### 2 117195, 5955958, 04658977, 53164002, 1567392 ####[place] [address] [place] [address] CHEMISTRYOrdered By: SYSTEM SYSTEM on 02-17-2022 Anion gap [Moles/Vol] 11 mmol/L Normal 6 - 16 mEq/L [facility] Calcium [Mass/Vol] 9.3 mg/dL Normal 8.9 - 11. 1 mg/dL [facility] Chloride [Moles/Vol] 104 mmol/L Normal 101 - 1 11 mmol/L [facility] CO2 [Moles/Vol] 27 mmol/L Normal 21 - 31 mmol/L [facility] Creatinine [Mass/Vol] 1.4 mg/dL High 0.5 - 1.3 mg/dL [facility] GFR/1.73 sq M.predicted among blacks MDRD (S/P/Bld) [Vol rate/Area] 59 mL/min/1.73 m2 Normal >=59mL/min /1.73 m2 [facility] Chem S GFR/1.73 sq M.predicted among non-blacks MDRD (S/P/Bld) [Vol rate/Area] 49 mL/min/1.73 m2 Low >=59mL/min /1.73 m2 [facility] S Glucose [Mass/Vol] 144 mg/dL Normal [...] 31.0 s Normal 25.1 - 36.5 second(s) [facility] Auto Coag INR Coag (PPP) [Relative time] 1.3 {INR} Invalid Interpretation Code [facility] Auto Coag PT Coag (PPP) [Time] 15.5 s High 10.2 - 12.9 second(s) [facility] Auto Coag Consent for Treatmenton 01-21 Consent for Treatment [id number]:127 Normal [facility] HEMATOLOGYOrdered By: SYSTEM SYSTEM on 02-17-2022 Basophils/100 [...] 7.7 E9/L Normal 4.0 - 11.0 E9/L [facility] HemeAutoSS PT & PTTon 02-17-2022 aPTT Coag (PPP) [Time] 31.0 second(s) Normal 25.1-36.5 [facility] Comment on above: Result Comment: Hepa rin therapeutic range (represented by Anti-Factor Xa activity of 0.2 - 0.4 U/mL) corresponds to PTT of 56.6 - 109.0 sec. Performed By: #### 2 781061, 9944584, 58347870, 53532001, 3257532 ####[facility] [address] [place] [address] INR Coag (PPP) [Relative time] 1.3 {INR} Invalid Interpretation Code [facility] Comment on above: Result Comment: INR results are specifically intended to assess patients stabilized on long-term Anticoagulation therapy suggested INR?s ?Less Intensive Anticoagulation? 2.0 ? 3.0 Conventional Range 3.0 ? 4.5 Performed By: #### 2 198436, 0141612, 64889980, 72840210, 4845464 ####[facility] [address] [place] [address] PT Coag (PPP) [Time] 15.5 second(s) High 10.2-12.9 [facility] Comment on above: Performed By: #### 2 049807, 2717116, 68161685, 22844204, 5481551 ####[facility] [address] [place] [address] UA With Cult Reflexon 2021 Bacteria LM Ql (Urine sed) SEE COMMENT Invalid Interpretation Code [facility] Comment on above: Result Comment: POSS IBLY PRESENT BUT OBSCURED BY COPIOUS AMOUNT OF RBCS Performed By: #### 1 1424219, 6642362 #### [facility] [address] [place] [address] Bilirubin Ql (U) Negative Normal Negative [facility] Comment on above: Performed By: #### 1 3772542, 4717890 #### [facility] [address] [place] [address] Clarity (U) CLOUDY Abnormal Clear [facility] Comment on above: Performed By: #### 1 7202820, 0558212 #### [facility] [address] [place] [address] Color (U) RED Abnormal Yellow [facility] Comment on above: Performed By: #### 1 3306470, 3146939 #### [facility] [address] [place] [address] Epithelial cells.squamous LM.HPF (Urine sed) [#/Area] See Comment Normal 0-2 [facility] Comment on above: Result Comment: POSS IBLY PRESENT BUT OBSCURED BY COPIOUS AMOUNT OF RBCS Performed By: #### 1 5118066, 4657710 #### [facility] [address] [place] [address] Glucose Test strip (U) [Mass/Vol] Negative Normal Negative [facility] Comment on above: Performed By: #### 1 8724069, 4883518 #### [facility] [address] [place] [address] Hemoglobin Ql (U) 3+ Abnormal Negative [facility] Comment on above: Performed By: #### 1 4565776, 5728685 #### [facility] [address] [place] [address] Ketones (U) [Mass/Vol] TRACE Invalid Interpretation Code Negative [facility] Comment on above: Performed By: #### 1 1587418, 0876244 #### [facility] [address] [place] [address] [place].plasma/[place] .RBC (Bld) [Mass ratio] >75 Abnormal 0-3 [facility] Comment on above: Performed By: #### 1 8120161, 9650934 #### [facility] [address] [place] [address] Nitrite Ql (U) Positive Abnormal Negative [facility] Comment on above: Performed By: #### 1 7591984, 0472880 #### [facility] [address] [place] [address] pH (U) 7.0 [pH] Invalid Interpretation Code 5.0-9.0 [facility] Comment on above: Performed By: #### 1 8975535, 6671274 #### [facility] [address] [place] [address] Protein (U) [Mass/Vol] 3+ Abnormal Negative [facility] Comment on above: Performed By: #### 1 2475407, 8780122 #### [facility] [address] [place] [address] Specific gravity (U) [Rel density] 1.015 Invalid Interpretation Code 1.005-1.03 0 [facility] Comment on above: Performed By: #### 1 2285112, 0023607 #### [facility] [address] [place] [address] Type of Urine collection method Clean Catch Normal [facility] Comment on above: Performed By: #### 1 7414178, 0590348 #### [facility] [address] [place], [place] [address] Urobilinogen Qn (U) 1.0 {Terry'U}/dL Normal 0.0-1.0 [facility] Comment on above: Performed By: #### 1 0418661, 1593250 #### [facility] [address] [place] [address] WBC Auto Ql (U) 1+ Abnormal Negative [facility] Comment on above: Performed By: #### 1 0270066, 7119482 #### [facility] [address] [place] [address] WBC LM.HPF (Urine sed) [#/Area] See Comment Normal 0-5 [facility] Comment on above: Result Comment: POSS IBLY PRESENT BUT OBSCURED BY COPIOUS AMOUNT OF RBCS Performed By: #### 1 7164301, 0151079 #### [facility] [address] [place] [address] URINALYSISOrdered By: Luis Enrique wiley on 02-17-2022 [...] Interpretation Code Negative [facility] UA Auto SS [place].plasma/[place] .RBC (Bld) [Mass ratio] >75 /HPF Invalid [...] [facility] UA Auto SS Urobilinogen Qn (U) 1.4458085 {Terry'U}/dL Normal 0.0 - 1.0 EU/dL [facility] [...] [Vol rate/Area] 59 mL/min/1.73 m2 Normal >=59 [facility] Comment on above: Order Comment: Order added by Discern Expert. Result Comment: eGFR is race adjusted. AA=. Performed By: #### 2 584989, 0331253, 02784837, 12485868, 6562427 ####[facility] [address] [place] [address] GFR/1.73 sq M.predicted among non-blacks MDRD (S/P/Bld) [Vol rate/Area] 49 mL/min/1.73 m2 Low >=59 [facility] Comment on above: Order Comment: Order added by Discern Expert. Result Comment: Land Resource Specialist swathi kidney disease could be indicated at eGFR's of less than 60 mL/min/1.73m2. Kidney failure is indicated at less than 15 mL/min/1.73m2. Performed By: #### 2 401079, 0219984, 04299879, 48219619, 0045088 ####[facility] [address] [place] [address] XR Spine Lumbar 4+ Views*on 02-10-2022 XR [...] by JACKLYN KOO on 02/11/2022 0917 Normal [facility] Mathematical Engineering Technician Ambulatory Visit Summaryon 0 02-01-2022 Ambulatory Visit [...] infections. ? (more content not included)... Normal Peter [facility] Patient Educationon 02-02-20 Patient Education Oncology [...] Follow these instructions at home: ? Take bien-jxf-loqmtvq and prescription medicines only as told by [...] important. Where to find more information ? [employer]: www.cancer.org ? [employer] (NCI): www.cancer.gov Contact a health care provider [...] 08/09/2004 Document Revised: 07/20/2018 Document Reviewed: 07/11/2017 [employer] Patient Education ? 2019 [employer] Mario Green [facility] Urology Office/Clinic Noteon 02-01-2022 Urology Office/Clinic [...] q12hr, # 30 tab(s), Refills(s) 0, Pharmacy: [facility] Urology Procedure (more content not included)... [facility] Comment on above: Result Comment: Elec tronically Signed By: Autumn Molina MD, Yoko Hair\.br\Date and Time Signed: 02/01/22 11:54 EDT\.br\Electronically Co-Signed By: Jolly Justice\.br\Date and Time Co-Signed: 02/01/22 11:50 EDT Operative Reporton Operative Report [id number]:127 [facility] Coding Summary.on 01-25-2022 Coding Summary. CD:[id number] Gh0bWw +PGhlYWQ+RM3LAMGqX95kgRRyp S6ZH1wTIL7OHSWIIJTLFU3OOH6 afAO8ELydB0NtbdAw OhnisVPnBG13DEh8LOI4lGijAT fdwQ3vyRCiW9o7UjSwZZ86jG39 TKoyMGVgMcS5UgCmxqdddPQy Y9knSsDplNIqZtq+PHRhYmxlIH kkDUWaGFxcRXQrZuNdcGggLW8t Gp9lNLVjFGQupBcmuGXiFdCu t1adTECmWOtlDC2yfHihP8VevV F0YBFpq5o6Oo07lFH+PHRkIHN0 fHpkQJeej065UaQmk8xhVUL8 eCLpVQfkIBC7Z53xg3X6LVKcJY JdVKU0iWF7uC6mdBlktcpiJ0Zb rAWwMqT0UHA3eNSukK4tqUde lezdtJ5qGjt+S06XQA6ZZSJXNV 0RQue9J3LcWcmduNK+QL93EXCm ZK26zWPkqLGgi4sfmEh6TdQl RSTbYQE3vPmoJTjhs7PrPKWwJ1 7crDCkv8Y6QTNimSituDKnWnRf hTV2qU7dTRbelxdxg8nhrcys Kfobq1ekrr27sL27B15sPVavMD NvDLY3QYTsVFVtoAxpgg2abT7i Ii8+TWtup4kwf2yatYk4GdTs BGUbgnJdqBfhFXL1b3NxWt86T7 RvxDbzn4DdWde0ky69wRHzs7A1 yGY2WIngCNWsuH8zXCfjTqO3 YCSfTqDctK43iGNjOLljOd3ijH xffFqrHU1mLWUhiwmkSIQchC4t DPXdgTLsqXboEZ9qLNPtrhpp p928JbEyTOB6AAXyiIEmE4KnmR 4sXdRgCBBxHIFzP1MwkDJaLFwf J390VJqtCjY3SIGiygJdQ6By UVUiiAkiHmK4h9I6Hy8Qa0Kboz tfJYN8TLwvWTT2WxV0FuFkVzN8 S7FkYax8DLPifUexPM5sN1In AVNrztdcjycblSR1SKQqMIAkpY 84vWFsFYopJy1ub3A1d708TDWo BDRkpF69Ff4jgLhzNYAulVRG bL6mbigxo2pcixhaAsTyPINwNX u6RHd6PWGrbDdjYiKrQBT4KhL9 LMZ5hUTwqF7vnKrjblvbtY2k Oyc+L37jfR3vQSX4ABG4lpyyQW XpapOiUH03GF56V5ZpHvzduJQa bGU+OCJzcwUtmBawNR4mHeMt c1vzl7KtTHmhP0UmGLMkYFisGp e6IYXsCKG0vOI0kH8cXESuMFfq f7D3vFD0R3UrkzBngk1xw1re UZApSZegK43asMOuc4Z2JPJvzJ Q0GEWixPkqViKkiM61Jsl+PGNv tKxqu4ZxOppsm9hvi4kxqOp7 GeBtWZRgvfEwcVotSSW7m4ZdSn 56T90sSUjxTAGpCFAwDLSkAYMv cIrxnn5plO3cQl4+PGNvbCB3 vAV9kW7yHPFuOeY3VSarP567Lv OahDJkCcwic8nuw8ehpUc1KvRq AZEoegZyzHpxQUV5k8AtIb53 A64wPRhsGYJePUXlAOBjNINhkR okes6qbE9lLe9+CY1sb8aoim96 uB69lLK+JJClVBN3dDbqKYig PXOhcO3aVIeuAkC5LYToPgAmfV 44fJVnCCbqYe3jeGvgnWmfKR8a VBQagobke572ImXnv9pdGOCi nEUmSMneSLO2E18hg6O3ISUgHY SwBSQ1nYD0wB2teTxiydaugCJu bGsoqtNzzFtuGWlvQUopC651 IHRvcDsnPlBhdGllbnQgTmFtZT v2D5ScKvu9VXZaxSajOF3ubLKx MOjmNq4mfVquyVjdZH0qXAGn bphur405VsIsw5ixCTJylEMuLC lgNBU8W83uy3Z3DXGbYNWxKXS1 fML2dB2mwTwdomfonEXgmGcq zuYtnOwbSGxhZPcnD670CCYgzF bpIeErtbGvZNTgbHJ7LK39CK08 kAZcz3A8qVC3U4NqVSSmorcr kkmscJR2IXCtOXQcuG13Bl5zeD bdJd7hVAWvSJC7APDvvEEvL8Ld sM4sTqMuZWFiYPSyL8SwrDXv JAsxE687LWugEaL6XMTufcOmT8 GxUHYkuQboVlU1g8M8Er4LI5S6 CH55CP55eSPgq6C1xUU0P5Kt LRLrlglbupffmWI6FEGzOPPwgB 65Sg2wwNyvUc5jMIRkOIG3UWNx iQSmW4XtxQ1eHnYuZWEnKRZx L3PflQFvVUwmB278ZScxBeW4BA LwkeSaO7GrXOZmuRqvLjY4h6P2 Ks7AXVq8TM24GX94eYNgj5N5 mAO7J6KbMGOcxidppzepgGH2LQ GvGUIqcU39Zk6zgEbgHe3pDGEr AJN3IFKkvCNiJ4BdnV1aJmEz RQTgYUDrO7MhcZGdDCccP561QJ xtHqR6XFAosoWrO9DtSCWhfRsx NhZ0x8O1Gd2MUDWiXI22BFS1 gRL1YU02QA07J1MtOauoqYXdoC U+PHRhYmxlIHdpZHRoPScxMDAl JsKvzXlvPK7tZf2gUVWfUYAh gTrgrTUvNiQpj2ztSDZmAMzlLS 4vfPffO2ThfVO3ONMyi8u0Be29 J95oQ1GjjJJ+VRIukFR6vKU6 xZ6oHsMrAlG5BJqgT331FbEyeV FnUurzp2ctn9ivmPs6CvG3HAOx haWptSuzJNC5v8TbCd75A05u IHdpZHRoPSIxNSUiIHZhbGlnbj 0nyA6vOf7+ATTbpBW9uCM3zO4a YsLvThG2AIaaZ567LwRmiGOq Duyxz9njr9ctsAa8TfTuVEHdvb ZzqLdfLKD2o9DzHn55R4WiuTjk z5CaTnj1wf84pFUzk7N3tEF1 G1SvQJPtldzksWLcuPtiOP8gBU ZzaftkMVYrkJ1zRTIlP4w1YgNy EnD3ZQpdA7FddsH5EDEjiPIg UHhgQDP7M54qs1N8IRPvMTIfSY T2bOA9bX3doSfhvonitWGsjEwu avPxnFxfIUqhURasM077PIVl mXmzKJYsdS8nRRXhlVPyeSqoVY 1rOWSdlgrbLhZYE15RMsfnP3fI WyvSIqPELK05YK27sVGle8E0 xVP9B1BlQIJkzpwofizrkPY7VM BoKZDdkP43gXMlACwjNu1lb2D6 l019YYEoJSEglY38To0rkCbs IJWewWLVfX6tnnffi3czxednEb CpTMOdGJj9SWm7BQTpgXyiRoLi XIX4CoM0ZUA2bJXblB8ujLgd cgugoP8wKdb+YPClINXbLOe6SI wvdGQ+KPJdSRF7dRssUHeqBBKp yD9pWQHmW6l6MvSiQuQ5LEpx U7EcOSJyxhheAd97pI5uBmXcBd Z8BPjcA4FqsuZ6TDGbgOLcBJmf WTH0G70um7M0SFSzSECiNDN1 dES1gM1tkAndevdtiNAlxFmclv VvzUuaWVyxINlxL849WDPxeAna Bke8ARuaCQAfDX09JU58rKRz f1B2vYW9U4XqUDIlcfolemngjE M9UMRpOCBqcH50sXAwUNcgZr3x w2K3g963NLOsXRSwlX96Bu7t jSkmPKLytRQOnL8ramdaw3keaw maQlNhSEVcBUj9DHc6ATRbfWqc ZcOqUTO6QcF6YHU6cPGxcF8n cWbhpluycR9kMux+TWFsZTwvdG Q+KHNePAP8lJqbKQaoKHQyfE5d UXCnI9x8FgXwPvK4QIeuC1Zy NRXbyyfqHp01pD7cFgWdLpB6OG wxT8VmonQ7AUHfhDIhUYjuYPV3 L09ha5U8BWRnKJBuCQC5dLC4 kU1nmNcxpuftaGMviLtngcFilI xaRFvkFFmtR737PIOlgKinLsne WoULgv3qTV9fViwjcVS+PC90 pn66C2ZaIsbqIod2CDBkJKY5lJ S3zP6aITWvDJjqn2H0hFZ4D2Uo cyQezo2ru5vmXTToJCukX40o rTKbv1G0AZHaxES2GTJasHsrQt VwdC26Nvl+ZRTscIksc1UmNezq u4iet7ssgJh2BoUtWTTryaUv nEeiDWQ8c4FoTt49Z63zHJskPJ SxGEQvXSPzDXPzxVykfw1qhQ8e Ii8+NJIpxDT6bKN5aC0fHrKb YfL8TJvnV717WsXftKVcCjkyy7 ixn2yyoRg4UkUgRYRkcjHhcGsd QTL9p4LtHl05F9PbaIwpr9Gn Xgx4vy25lQCzc6R4cLI4T5IeFB GmbjdcaMVwtOjjZV1yOGEidtmm YUPimV8tUYNjL4g7YqIdHvX4 SBkzP9EvpzT1CXKdfJYpNIQdeT DIcE4uwsdok7czgtcrZnTwNEIg PYk7SZc5XNKunZdiBkYnINR0 LnB7FBM6mMRixD8lxVrdozmybO 9wOyc+GJo4r3socWIlJA4yjKD6 CB69MI09cHJda3C5hZB5S4Zq DNWxgumrdicnyJB4DSYoGSBjtG 17Jh6pjAemLd1uPEDtQYX8CXTa cTWiO0NcpS1tSfMbZXWaTVPz R7UnpJXwIKonS815ZAqcDiG0IJ EfzwEcT6OgHOMwpTrcIhY1y0G0 Oz6FMB51WL39SL90oVIsf7F6 pBK8B0RzUSKameqkddojlNI6VP AmIATibB85Aj4jdZzeHi7dNSDa FBQ1QJVyhOQvB9TkvQ6aJcYy RFUiCDUaX2MdiRVfAEmeS330CV ujLzO5HRXnhrLzT6IwAFDmmDva UbE6i8H0Ae6LFk49ZO70GR59 yMMkm4G4kOE2H3WxXXQnnlylwo dceGH9XSJpPXLgmR82Af5fnFdh Mb2wQNWhNEH9VFKwpZXzY1Hz tE5uCfOfGMRiTZRqU1OkpCZaRR jeD122SSafKsU8VYDrbyKuA6Vz IVMcqEadSsP8n9W2Gm6RMMlo bmd0I2GyMvusdFS+DT91BJGyNA 74sEQehXJsj8ijvIv7QbFlTNZq PAJ2dFvdIYglw9YxFXLlY60e bGFw (more content not included)... Normal [facility] Reminderson 01-24-2022 Reminders - From: Miller Shirley MA To: EU - Clinical; Sent: 01/21/2022 14:39:52 EDT Show up: 01/24/2022 08:00:00 EDT Subject: Ambulatory Reminder Reminder/Recall urine culture addressed. NICK Normal [facility] C Urineon 01-23-2022 Bacteria identified Cx Nom (U) Microbiology PROCEDURE: Urine Culture [R1] SOURCE: U Random BODY SITE: COLLECTED DATE/TIME: 01/21/2022 14:36 EDT RECEIVED DATE/TIME: 01/21/2022 18:12 EDT START DATE/TIME: 01/21/2022 18:12 EDT FREE TEXT SOURCE: MASHA LEY PA-C, PA-C, MASHA Nichols FINAL REPORTS Final Report [] Verified Date/Time: 01/23/2022 10:37 EDT <10,000 cfu/ml Mixed skin contaminants Performing Locations R1: This test was performed at: [facility], [address] [place] [address], [id number] , [place], Normal [facility] Comment on above: Performed By: #### 2 [id number] ####[facility] [address] [place] [address] Ambulatory Visit Summaryon 0 01-21-2022 Ambulatory Visit Summary TAURUS GARCIA :1945 Visit Date:01/21/2022 Ambulatory Visit Instructions Your Diagnosis Urgency of urination Tests Performed Urnls Dip Stick Auto w/o Microscopy POC [id number] Your Care Team Attending Physician - Autumn [...] MD, Yoko Hair Where: [facility] Pathology Noteon 01-19-2022 Pathology Note [id number]#[id number]:127 Normal [facility] Ambulatory Visit Summaryon 0 01-18-2022 Ambulatory Visit [...] sleep apnea, adult Pulmonary embolism Radiculopathy Normal [facility] Lab Reportson 01-11-2022 Lab Reports [id number]#[id number]:127 Normal [facility] Lab Reportson 01-10-2022 Lab Reports [id number]#1.00CD:127 Normal [facility] PROF CHEM 8 (BAS METB)on Anion gap [Moles/Vol] 12.8 mmol/L Normal [facility] Comment on above: Performed By: #### B MP #### [facility] [address] [address] [address] Chao Garcia Calcium [Mass/Vol] 9.4 mg/dL Normal 8.5-10.1 [facility] Comment on above: Performed By: #### B MP #### [facility] [address] [address] [address] Chao Garcia Chloride [Moles/Vol] 107 mmol/L Normal 98-107 [facility] Comment on above: Performed By: #### B MP #### [facility] [address] [address] [address] Chao Garcia CO2 [Moles/Vol] 27.6 mmol/L Normal 21.0-32.0 [facility] Comment on above: Performed By: #### B MP #### [facility] [address] [address] [address] Chao Garcia Creatinine [Mass/Vol] 1.47 mg/dL Critically high 0.70-1.30 [facility] Comment on above: Performed By: #### B MP #### [facility] [address] [address] [address] Chao Garcia EGFR-AF SALVADOREAN 56 mL/min/1.73m2 Critically low >=60 [facility] Comment on above: Performed By: #### B MP #### [facility] [address] [address] [address] Chao Garcia EGFR-NON AF SALVADOREAN 46 mL/min/1.73m2 Critically low >=60 [facility] Comment on above: Performed By: #### B MP #### [facility] [address] [address] [address] Chao Garcia Glucose [Mass/Vol] 142 mg/dL Critically high 74-106 [facility] Comment on above: Performed By: #### B MP #### [facility] [address] [address] [address] Chao Garcia Potassium [Moles/Vol] 3.4 mmol/L Critically low 3.5-5.1 [facility] Comment on above: Performed By: #### B MP #### [facility] [address] [address] [address] Chao Garcia Sodium [Moles/Vol] 144 mmol/L Normal 136-145 [facility] Comment on above: Performed By: #### B MP #### [facility] [address] [address] [address] Chao Garcia Urea nitrogen [Mass/Vol] 33.0 mg/dL Critically high 7.0-18.0 [facility] Comment on above: Performed By: #### B MP #### [facility] [address] [address] [address] Chao Garcia Urea nitrogen/Creatinine [Mass ratio] 22.4 mg/mg Normal [facility] Comment on above: Performed By: #### B #### [facility] [address] [address] [address] Chao Garcia Consent for Procedure/Surger yon 01-04-2022 Consent for Procedure/Surgery [id number]:12 7 Normal [facility] Ambulatory Visit Summaryon 0 12-27-2021 Ambulatory Visit [...] after TURBT Where: [facility] [address] [place] [address]- Medications What How Much When Instructions Unchanged [...] serious c (more content not included)... Normal [facility] Patient Educationon 12-28-19 Patient Education Urology Hematuria, [...] these instructions at home: Medicines ? Take imlv-ijz-dsffsdk and prescription medicines only as told by [...] the blood stops without treatment. ? Take zwnh-ktl-tuxnyzs and prescription medicines only as told by your health care provider. ? Drink enough fluid to keep your urine clear or pale yellow. This information is not intended to replace advice given to you by your health care provider. Make sure you discuss any questions you have with your health care provider. Document Released: 08/07/2006 Document Revised: 01/01/2020 Document Reviewed: 09/09/2017 [employer] Patient Education ? 2019 [employer]. Mario [facility] Urology Office/Clinic Noteon 12-27-2021 Urology [...] urine The Urethra was dilated to: _ Lithuanian with sounds. Specimens Removed: Voided specimen sent [...] on delayed axial image 228. Ordered: Cystourethroscopy [id number] Urology Procedure Order 2. Gross hematuria (R31.0: [...] Full informe (more content not included)... Normal [facility] Comment on above: Result Comment: Elec tronically Signed By: Autumn Molina MD, Yoko L\.br\Date and Time Signed: 12/27/21 13:27 EDT\.br\Electronically Co-Signed By: Elvin Hawthorne S\.br\Date and Time Co-Signed: 12/27/21 13:19 EDT Lab Reportson 12-16-2021 Lab Reports [id number]:127 Normal [facility] RAD - CT Reporton 12-16-2021 RAD - CT Report [id number]#[id number]:127 Normal [facility] CREATININEon 12-15-2021 Creatinine [Mass/Vol] 1.52 mg/dL Critically high 0.70-1.30 [facility] Comment on above: Performed By: #### C RAFA #### [facility] [address] [address] [address] Chao Garcia EGFR-AF SALVADOREAN 54 mL/min/1.73m2 Critically low >=60 [facility] Comment on above: Performed By: #### C RAFA #### [facility] [address] [address] [address] Chao Garcia EGFR-NON AF SALVADOREAN 45 mL/min/1.73m2 Critically low >=60 [facility] Comment on above: Performed By: #### C RAFA #### [facility] [address] ABD/PELV W CONon [...] measuring 1.1 x 0.9 cm axial image 2029 URINARY BLADDER: No focal bladder masses measuring [...] by: JORDAN RUTLEDGE Date: 2021-12-15 13:10 Normal [facility] Formson 12-15-2021 Forms [id number]:127 Normal [facility] UroVysion Fish and Urine Cyt o ([facility])on 12-13-2021 UVFISH & UC Diagnosis Info Invalid Interpretation Code [facility] Comment on above: Result Comment: A:Ur ine,Urine:Voided [...] on: 12/13/2021 13:24:10 Performed By: #### 1 [id number] ####[facility] [address] [place] [address] Patient Educationon 12-08-19 Patient Education Urology Hematuria, [...] these instructions at home: Medicines ? Take ktkj-umf-jmptnpc and prescription medicines only as told by [...] the blood stops without treatment. ? Take ulcw-vzd-iiloqvk and prescription medicines only as told by your health care provider. ? Drink enough fluid to keep your urine clear or pale yellow. This information is not intended to replace advice given to you by your health care provider. Make sure you discuss any questions you have with your health care provider. Document Released: 08/07/2006 Document Revised: 01/01/2020 Document Reviewed: 09/09/2017 [employer] Patient Education ? 2019 [employer] Normal [facility] UroVysion Fish and Urine Cyt o ([facility])on 12-07-2021 [facility] Method of Extraction Voided Normal [facility] Comment on above: Performed By: #### 1 [id number] ####[facility] [address] [place] [address] [facility] Number of Jars 1 Invalid Interpretation Code [facility] Comment on above: Performed By: #### 1 [id number] ####[facility] [address] [place] [address] [facility] Specimen Urine Normal [facility] Comment on above: Performed By: #### 1 [id number] ####[facility] [address] [place] [address] [facility] Type of Service Global Normal Fish er [facility] Comment on above: Performed By: #### 1 [id number] ####[facility] [address] [place] [address] Urology Office/Clinic Noteon 12-07-2021 Urology Office/Clinic Note Chief Complaint Gross hematuria with moderate bladder outlet obstruction symptoms. Patient is on Eliquis. HPI Staff This is a 76 year old male referred by Dr. Nguyen for hematuria. Pt was last seen by Dr. Rizvi 05/03/18. S/P iKm 02/16/17. Pt. is on Eliquis 5mg. Pain [...] procedure, # 2 tab(s), Refills(s) 0, Pharmacy: [id number] Follow-up With When Contact Information Autumn Molina MD, Yoko Hair, [facility] [address] [place] [phone] Additional Instructions: Patient Education Hematuria, Adult Margaret Ma, personally scribed for Dr. Rizvi on 12/07/2021 10:01:53. . Documentation recorded by the scri (more content not included)... Normal [facility] Comment on above: Result Comment: Elec tronically [...] Instructions By signing my name below, I, Gordon Gerber LPN, attest that this documentation has been prepared [...] MG Oral TabletTake 1 tablet daily Pyridostigmine Drybranch 60 MG Oral TabletTAKE 1 TABLET 4 [...] Recorded: 31Aug2021 01:21PM Heart Rate74, L Radial Yqsykdrp743, LUE, Sitting Pqjbkizhz23, LUE, Sitting Height5 ft 9 in Nesevu118 lb BMI Oirhqctqgx44.62 kg/m2 BSA Calculated2.58 Tobacco Useb) No Fall [...] Aug 31 2021 3:38PM EST (Author) Normal [employer] Complete Blood Count with Au to Diffon 08-18-2021 Basophils (Bld) [#/Vol] 0.05 10*3/uL Normal 0.00-0.20 [facility] [employer] Technician Comment on above: Performed By: #### C MP, LIPD, TSH, CBCAD, FT4 #### [facility] [address] [place], [place] [id number] Basophils/100 WBC (Bld) 0.7 % Normal [facility] Comment on above: Performed By: #### C MP, LIPD, TSH, CBCAD, FT4 #### [facility] [address], [place] [id number] Eosinophils (Bld) [#/Vol] 0.15 10*3/uL Normal 0.02-0.50 [facility] Comment on above: Performed By: #### C MP, LIPD, TSH, CBCAD, FT4 #### [facility] [address], [place] [id number] Eosinophils/100 WBC (Bld) 2.0 % Normal [facility] Comment on above: Performed By: #### C MP, LIPD, TSH, CBCAD, FT4 #### [facility] [address], [place] [id number] Erythrocyte distribution width (RBC) [Ratio] 14.6 % Normal 11.0-15.0 [facility] Comment on above: Performed By: #### C MP, LIPD, TSH, CBCAD, FT4 #### [facility] [address], [place] [id number] Hematocrit (Bld) [Volume fraction] 43.5 % Normal 38.5-50.0 [facility] Comment on above: Performed By: #### C MP, LIPD, TSH, CBCAD, FT4 #### [facility] [address], [place] [id number] Hemoglobin (Bld) [Mass/Vol] 13.8 g/dL Normal 13.0-17.1 [facility] Comment on above: Performed By: #### C MP, LIPD, TSH, CBCAD, FT4 #### [facility] [address], [place] [id number] Lymphocytes (Bld) [#/Vol] 2.5 10*3/uL Normal 0.9-3.9 [facility] Comment on above: Performed By: #### C MP, LIPD, TSH, CBCAD, FT4 #### [facility] [address], [place] [id number] Lymphocytes/100 WBC (Bld) 32.3 % Normal [facility] Comment on above: Performed By: #### C MP, LIPD, TSH, CBCAD, FT4 #### [facility] [address], [place] [id number] MCH (RBC) [Entitic mass] 30.3 pg Normal 27.0-33.0 [facility] Comment on above: Performed By: #### C MP, LIPD, TSH, CBCAD, FT4 #### [facility] [address], [place] [id number] MCHC (RBC) [Mass/Vol] 31.7 g/dL Low 32.0-36.0 [facility] Comment on above: Performed By: #### C MP, LIPD, TSH, CBCAD, FT4 #### [facility] [address], [place] [id number] MCV (RBC) [Entitic vol] 95 fL Normal 80-100 [facility] Comment on above: Performed By: #### C MP, LIPD, TSH, CBCAD, FT4 #### [facility] [address], [place] [id number] Monocytes (Bld) [#/Vol] 0.9 10*3/uL Normal 0.2-0.9 [facility] Comment on above: Performed By: #### C MP, LIPD, TSH, CBCAD, FT4 #### [facility] [address], [place] [id number] Monocytes/100 WBC (Bld) 11.5 % Normal [facility] Comment on above: Performed By: #### C MP, LIPD, TSH, CBCAD, FT4 #### [facility] [address], [place] [id number] Neutrophils (Bld) [#/Vol] 4.1 10*3/uL Normal 1.5-7.8 [facility] Comment on above: Performed By: #### C MP, LIPD, TSH, CBCAD, FT4 #### [facility] [address], [place] [id number] Neutrophils/100 WBC (Bld) 53.0 % Normal [facility] Comment on above: Performed By: #### C MP, LIPD, TSH, CBCAD, FT4 #### [facility] [address], [place] [id number] Platelet mean volume (Bld) [Entitic vol] 10.70 fL Normal 7.50-12.50 [facility] Comment on above: Performed By: #### C MP, LIPD, TSH, CBCAD, FT4 #### [facility] [address], [place] [id number] Platelets (Bld) [#/Vol] 208 10*3/uL Normal 140-400 [facility] Mathematical Engineering Technician Comment on above: Performed By: #### C MP, LIPD, TSH, CBCAD, FT4 #### [facility] [address], [place] [id number] RBC (Bld) [#/Vol] 4.56 10*6/uL Normal 4.20-5.80 [facility] Mathematical Engineering Technician Comment on above: Performed By: #### C MP, LIPD, TSH, CBCAD, FT4 #### [facility] [address], [place] [id number] RDW-SD 51.6 fL High 37.0-50.0 [facility] [employer] Techn[facility] Comment on above: Performed By: #### C MP, LIPD, TSH, CBCAD, FT4 #### [facility] [address], [place] [id number] WBC (Bld) [#/Vol] 7.7 10*3/uL Normal 3.8-11.0 [facility] Mathematical Engineering Technician Comment on above: Performed By: #### C MP, LIPD, TSH, CBCAD, FT4 #### [facility] [address], [place] [id number] Comprehensive Metabolic Pane [facility] 08-18-2021 Albumin [Mass/Vol] 4.2 g/dL Normal 3.6-5.1 [facility] Mathematical Engineering Technician Comment on above: Performed By: #### C MP, LIPD, TSH, CBCAD, FT4 #### [facility] [address], [place] [id number] Albumin/Globulin [Mass ratio] 2.0 {ratio} Normal 1.0-2.5 [facility] [employer] Technician Comment on above: Performed By: #### C MP, LIPD, TSH, CBCAD, FT4 #### [facility] [address], [place] [id number] ALP [Catalytic activity/Vol] 69 U/L Normal 40-129 [facility] Comment on above: Performed By: #### C MP, LIPD, TSH, CBCAD, FT4 #### [facility] [address], [place] [id number] ALT [Catalytic activity/Vol] 22 U/L Normal 9-46 [facility] Comment on above: Result Comment: 07/21 Female reference range changed. Performed By: #### C MP, LIPD, TSH, CBCAD, FT4 #### [facility] [address], [place] [id number] Anion gap [Moles/Vol] 18 mmol/L Normal 12-20 [facility] Comment on above: Result Comment: Effe ctive 08/26/2019 reference range changed. Performed By: #### C MP, LIPD, TSH, CBCAD, FT4 #### [facility] [address], [place] [id number] AST [Catalytic activity/Vol] 21 U/L Normal 10-40 [facility] Comment on above: Performed By: #### C MP, LIPD, TSH, CBCAD, FT4 #### [facility] [address], [place] [id number] Bilirubin [Mass/Vol] 0.60 mg/dL Normal 0.30-1.20 [facility] Comment on above: Performed By: #### C MP, LIPD, TSH, CBCAD, FT4 #### [facility] [address], [place] [id number] BUN/CREA 20 Ratio Normal 6-22 [facility] Comment on above: Performed By: #### C MP, LIPD, TSH, CBCAD, FT4 #### [facility] [address], [place] [id number] Calcium [Mass/Vol] 9.3 mg/dL Normal 8.6-10.2 [facility] Comment on above: Performed By: #### C MP, LIPD, TSH, CBCAD, FT4 #### [facility] [address], [place] [id number] Chloride [Moles/Vol] 104 mmol/L Normal 98-107 [facility] Comment on above: Performed By: #### C MP, LIPD, TSH, CBCAD, FT4 #### [facility] [address], [place] [id number] CO2 [Moles/Vol] 25 mmol/L Normal 20-31 [facility] Comment on above: Performed By: #### C MP, LIPD, TSH, CBCAD, FT4 #### [facility] [address], [place] [id number] Creatinine [Mass/Vol] 1.2 mg/dL Normal 0.7-1.4 [facility] Comment on above: Performed By: #### C MP, LIPD, TSH, CBCAD, FT4 #### [facility] [address], [place] [id number] eGFRAA 72 mL/min/1.73m2 Normal >60 [facility] Comment on above: Performed By: #### C MP, LIPD, TSH, CBCAD, FT4 #### [facility] [address], [place] [id number] eGFRNAA 59 mL/min/1.73m2 Low >60 [facility] Comment on above: Performed By: #### C MP, LIPD, TSH, CBCAD, FT4 #### [facility] [address], [place] [id number] Globulin (S) [Mass/Vol] 2.1 g/dL Normal 1.9-3.7 [facility] Comment on above: Performed By: #### C MP, LIPD, TSH, CBCAD, FT4 #### [facility] [address], [place] [id number] Glucose [Mass/Vol] 132 mg/dL High 65-99 [facility] Comment on above: Result Comment: For FASTING Glucose --- ADA reference ranges: Normal 65-99 mg/dl Prediabetes 100-125 Diabetes >/= 126 Performed By: #### C MP, LIPD, TSH, CBCAD, FT4 #### [facility] [address], [place] [id number] Potassium [Moles/Vol] 3.4 mmol/L Low 3.5-5.5 [facility] Comment on above: Performed By: #### C MP, LIPD, TSH, CBCAD, FT4 #### [facility] [address], [place] [id number] Protein [Mass/Vol] 6.3 g/dL Normal 6.1-8.1 Jena romero [place] Mathematical [employer] Technician Comment on above: Performed By: #### C MP, LIPD, TSH, CBCAD, FT4 #### [facility] [address], [place] [id number] Sodium [Moles/Vol] 144 mmol/L Normal 135-146 Jena romero [place] [employer] Technician Comment on above: Performed By: #### C MP, LIPD, TSH, CBCAD, FT4 #### [facility] [address], [place] [id number] Urea nitrogen [Mass/Vol] 23 mg/dL Normal 7-25 [facility] Mathematical Engineering Technician Comment on above: Performed By: #### C MP, LIPD, TSH, CBCAD, FT4 #### [facility] [address], [place] [id number] Free T4on 08-18-2021 Free T4 [Mass/Vol] 1.26 ng/dL Normal 0.80-1.80 [facility] Mathematical Engineering Technician Comment on above: Performed By: #### C MP, LIPD, TSH, CBCAD, FT4 #### [facility] [address], [place] [id number] Lipid Panelon 08-18-2021 Cholesterol [Mass/Vol] 170 mg/dL Normal 125-200 [facility] Comment on above: Result Comment: Low risk < 200mg/dL Borderline risk 201-239 mg/dl High risk > or equal to 240 Performed By: #### C MP, LIPD, TSH, CBCAD, FT4 #### [facility] [address], [place] [id number] Cholesterol in HDL [Mass/Vol] 70 mg/dL Normal >40 [facility] Mathematical Engineering Technician Comment on above: Result Comment: High Cardiovascular Risk HDL <40 mg/dL Low Cardiovascular Risk HDL > or equal to 60 mg/dl Performed By: #### C MP, LIPD, TSH, CBCAD, FT4 #### [facility] [address], [place] [id number] Cholesterol in LDL [Mass/Vol] 78 mg/dL Normal [facility] Comment on above: Result Comment: LDL ATP III CLASSIFICATION LDL less than 100 mg/dl Optimal LDL 100-129 mg/dl Near or above optimal LDL 130-159 Borderline high LDL 160-189 High LDL greater than 189 mg/dl Very High Performed By: #### C MP, LIPD, TSH, CBCAD, FT4 #### [facility] [address], [place] [id number] Cholesterol in VLDL [Mass/Vol] 22 mg/dL Normal [facility] Mathematical Engineering Technician Comment on above: Performed By: #### C MP, LIPD, TSH, CBCAD, FT4 #### [facility] [address], [place] [id number] Cholesterol.total/Chol esterol in HDL [Mass ratio] 2 {ratio} Normal [facility] Specialist Comment on above: Performed By: #### C MP, LIPD, TSH, CBCAD, FT4 #### [facility] [address], [place] [id number] Triglyceride [Mass/Vol] 110 mg/dL Normal 30-150 [facility] Mathematical Engineering Technician Comment on above: Result Comment: TRIG ATPIII CLASSIFICATIONS TRIG less than 150 mg/dl Normal TRIG 150-199 mg/dl Borderline High TRIG 200-500 mg/dl High TRIG greather than 500 mg/dl Very High Performed By: #### C MP, LIPD, TSH, CBCAD, FT4 #### [facility] [address], [place] [id number] PSA SCREEN (MEDICARE)on 07-22 TPSA 1.270 ng/mL Normal <4.000 [facility] Mathematical Engineering Technician Comment on above: Result Comment: PSA Test Method: ECLIA/Racquel e 601 Performed By: #### P SA MC #### [facility] [address], [place] [id number] TSHon 12-29-2021 TSH 4.190 uIU/mL Normal 0.400-4.50 0 [facility] Mathematical Engineering Technician Comment on above: Performed By: #### C MP, LIPD, TSH, CBCAD, FT4 #### [facility] [address] [place], [place] [id number] [facility]23 SARS-CoV-2 (COVID-19) RNA JAYDE+probe Ql (Unsp spec) Detected Critically abnormal NOT DETECTED [facility] Comment on above: Result Comment: This test is not yet approved or cleared by the [place] FDA. When there are no FDA-approved or cleared tests available, and other criteria are met, FDA can make tests available under an emergency access mechanism called an Emergency Use Authorization (EUA). The EUA for this test is supported by the [place] of Health and Human Service's (HHS's) declaration [...] longer be used). Performed By: #### [facility] #### [facility] [address] [place], [place] [id number] Jalyn Noble US JO ANN DOP LEG [...] JORDAN RUTLEDGE Date: 2021-02-09 16:35 Normal [facility] Vital Signs Date Time Vital Sign Value Performing Clinician Facility 07-24-2024 08:30-0500 Body height 172.7 cm Leela Bocanegra NP Work Phone: [facility] 07-24-2024 08:30-0500 Body mass index (BMI) [Ratio] 46.5 kg/m2 Leela Bocanegra DOG POUND ATTENDANT Work Phone: [facility] 07-24-2024 08:30-0500 Body weight 138.71 kg Leela Bocanegra DOG POUND ATTENDANT Work Phone: [facility] 07-24-2024 08:30-0500 Diastolic blood pressure 82 mm[Hg] Lelea Bocanegra DOG POUND ATTENDANT Work Phone: [facility] 07-24-2024 08:30-0500 Heart rate 63 /min Leela Bocanegra DOG POUND ATTENDANT Work Phone: [facility] 07-24-2024 08:30-0500 Respiratory rate 18 /min Leela Bocanegra DOG POUND ATTENDANT Work Phone: [facility] 07-24-2024 08:30-0500 SaO2% (BldA) [Mass fraction] 93 % Leela Bocanegra DOG POUND ATTENDANT Work Phone: [facility] 07-24-2024 08:30-0500 Systolic blood pressure 122 mm[Hg] Leela Bocanegra DOG POUND ATTENDANT Work Phone: [facility] 07-09-2024 20:09-0500 Diastolic blood pressure 74 mm[Hg] Komal Nguyen II Work Phone: [facility] 07-09-2024 20:09-0500 Heart rate 57 /min Komal Nguyen II Work Phone: [facility] 07-09-2024 20:09-0500 Respiratory rate 18 /min Komal Nguyen II Work Phone: [facility] 07-09-2024 20:09-0500 SaO2% (BldA) [Mass fraction] 95 % Komal Nguyen II Work Phone: [facility] 07-09-2024 20:09-0500 Systolic blood pressure 168 mm[Hg] Komal Nguyen II Work Phone: [facility] 07-09-2024 18:53-0500 Body height 172.72 cm Komal Nguyen II Work Phone: [facility] 07-09-2024 18:53-0500 Body weight 139.7 kg Komal Nguyen II Work Phone: [facility] 07-09-2024 15:52-0500 Body temperature 98.9 [degF] Komal Nguyen II Work Phone: [facility] 07-04-2024 05:48-0500 Diastolic blood pressure 75 mm[Hg] Komal Nguyen II Work Phone: [facility] 07-04-2024 05:48-0500 Systolic blood pressure 133 mm[Hg] Komal Nguyen II Work Phone: [facility] 07-04-2024 05:05-0500 Body weight 140.3 kg Komal Gnuyen II Work Phone: [facility] 07-04-2024 05:00-0500 Body temperature 97.4 [degF] Komalescobar Nguyen II Work Phone: [facility] 07-04-2024 05:00-0500 Heart rate 64 /min Komal Nguyen II Work Phone: [facility] 07-04-2024 05:00-0500 Respiratory rate 16 /min Komal Nguyen II Work Phone: [facility] 07-04-2024 05:00-0500 SaO2% (BldA) [Mass fraction] 95 % Komal Nguyen II Work Phone: [facility] 07-03-2024 07:59-0500 Body height 172.72 cm Komal Nguyen II Work Phone: [facility] 06-22-2024 11:25-0400 Diastolic blood pressure 71 mm[Hg] II Komal Nguyen Work Phone: [facility] 06-22-2024 11:25-0400 Heart rate 54 /min II Komal Nguyen Work Phone: [facility] 06-22-2024 11:25-0400 Respiratory rate 18 /min II Komal Nguyen Work Phone: [facility] 06-22-2024 11:25-0400 SaO2% (BldA) [Mass fraction] 97 % II Komal Nguyen Work Phone: [facility] 06-22-2024 11:25-0400 Systolic blood pressure 112 mm[Hg] II Komal Nguyen Work Phone: [facility] 06-22-2024 08:00-0400 Body temperature 97.4 [degF] II Komal Nguyen Work Phone: [facility] 06-22-2024 05:35-0400 Body weight 140.6 kg II Komal Nguyen Work Phone: [facility] 06-20-2024 14:56-0400 Body height 172.72 cm II Komal Nguyen Work Phone: [facility] 06-19-2024 23:54-0400 Inhaled oxygen concentration 21 % II Komal Nguyen Work Phone: [facility] 06-19-2024 14:41-0400 Body height 172.72 cm II Komal Nguyen Work Phone: [facility] 06-19-2024 14:41-0400 Body temperature 98 [degF] II Komal Nguyen Work Phone: [facility] 06-19-2024 14:41-0400 Body weight 143.6 kg II Komal Nguyen Work Phone: [facility] 06-19-2024 14:41-0400 Diastolic blood pressure 74 mm[Hg] II Komal Nguyen Work Phone: [facility] 06-19-2024 14:41-0400 Heart rate 59 /min II Komal Nguyen Work Phone: [facility] 06-19-2024 14:41-0400 Respiratory rate 16 /min II Komal Nguyen Work Phone: [facility] 06-19-2024 14:41-0400 SaO2% (BldA) [Mass fraction] 96 % II Komal Nguyen Work Phone: [facility] 06-19-2024 14:41-0400 Systolic blood pressure 175 mm[Hg] II Komal Nguyen Work Phone: [facility] 06-13-2024 14:10-0400 Body height 172.7 cm Real Tuttle DPM Work Phone: [facility] 06-13-2024 14:10-0400 Body mass index (BMI) [Ratio] 49.42 kg/m2 Real Tuttle DPM Work Phone: [facility] 06-13-2024 14:10-0400 Body weight 147.42 kg Real Tuttle DPM Work Phone: [facility] 06-13-2024 14:10-0400 Diastolic blood pressure 79 mm[Hg] Real Tuttle DPM Work Phone: [facility] 06-13-2024 14:10-0400 Heart rate 84 /min Real Tuttle DPM Work Phone: [facility] 06-13-2024 14:10-0400 Systolic blood pressure 126 mm[Hg] Real Tuttle DPM Work Phone: [facility] 05-27-2024 12:55-0400 Body mass index (BMI) [Ratio] 49.42 kg/m2 Willieer Chip DO Work Phone: [facility] 05-27-2024 12:55-0400 Body weight 147.42 kg Christopher Chip DO Work Phone: [facility] 05-27-2024 12:55-0400 Diastolic blood pressure 85 mm[Hg] Christopher Chip DO Work Phone: [facility] 05-27-2024 12:55-0400 Heart rate 75 /min Christopher Chip DO Work Phone: [facility] 05-27-2024 12:55-0400 SaO2% (BldA) [Mass fraction] 90 % Stanley Saunders DO Work Phone: [facility] 05-27-2024 12:55-0400 Systolic blood pressure 137 mm[Hg] Stanley Saunders DO Work Phone: [facility] 02-12-2024 17:05-0400 Diastolic blood pressure 69 mm[Hg] II Komal Nguyen Work Phone: [facility] 02-12-2024 17:05-0400 Heart rate 53 /min II Komal Nguyen Work Phone: [facility] 02-12-2024 17:05-0400 Respiratory rate 22 /min II Komal Nguyen Work Phone: [facility] 02-12-2024 17:05-0400 SaO2% (BldA) [Mass fraction] 98 % II Komal Nguyen Work Phone: [facility] 02-12-2024 17:05-0400 Systolic blood pressure 156 mm[Hg] II Komal Nguyen Work Phone: [facility] 02-12-2024 13:33-0400 Body height 172.72 cm II Komal Nguyen Work Phone: [facility] 02-12-2024 13:33-0400 Body temperature 98.1 [degF] II Komal Nguyen Work Phone: [facility] 02-12-2024 13:33-0400 Body weight 142.3 kg II Komal Nguyen Work Phone: [facility] 10-05-2023 13:16-0500 Body height 177.8 cm Komal Nguyen MD Work Phone: [facility] 10-05-2023 13:16-0500 Body mass index (BMI) [Ratio] 45.2 kg/m2 Komal Nguyen MD Work Phone: [facility] 10-05-2023 13:16-0500 Body weight 142.88 kg Komal Nguyen MD Work Phone: [facility] 10-05-2023 13:16-0500 Diastolic blood pressure 82 mm[Hg] Komal Nguyen MD Work Phone: [facility] 10-05-2023 13:16-0500 Heart rate 58 /min Komal Nguyen MD Work Phone: [facility] 10-05-2023 13:16-0500 SaO2% (BldA) [Mass fraction] 96 % Komal Nguyen MD Work Phone: [facility] 10-05-2023 13:16-0500 Systolic blood pressure 134 mm[Hg] Komal Nguyen MD Work Phone: [facility] 09-20-2023 12:13-0500 Body height 172.7 cm Baltazar Hoover DO Work Phone: [facility] 09-20-2023 12:13-0500 Body mass index (BMI) [Ratio] 47.59 kg/m2 Baltazar Hoover DO Work Phone: [facility] 09-20-2023 12:13-0500 Body weight 141.98 kg Baltazar Hoover DO Work Phone: [facility] 09-20-2023 12:13-0500 Diastolic blood pressure 74 mm[Hg] Baltazar Hoover DO Work Phone: [facility] 09-20-2023 12:13-0500 Heart rate 53 /min Baltazar Hoover DO Work Phone: [facility] 09-20-2023 12:13-0500 Systolic blood pressure 130 mm[Hg] Baltazar Hoover DO Work Phone: [facility] 06-10-2023 05:00-0400 Body temperature 97.2 [degF] II Komal Nguyen Work Phone: [facility] 06-10-2023 05:00-0400 Diastolic blood pressure 70 mm[Hg] II Komal Nguyen Work Phone: [facility] 06-10-2023 05:00-0400 Heart rate 57 /min II Komal Nguyen Work Phone: [facility] 06-10-2023 05:00-0400 Respiratory rate 18 /min II Komal Nguyen Work Phone: [facility] 06-10-2023 05:00-0400 SaO2% (BldA) [Mass fraction] 95 % II Komal Nguyen Work Phone: [facility] 06-10-2023 05:00-0400 Systolic blood pressure 145 mm[Hg] II Komal Nguyen Work Phone: [facility] 06-06-2023 12:31-0400 Body height 172.72 cm II Komal Nguyen Work Phone: [facility] 06-04-2023 06:00-0400 Body weight 138.9 kg II Komal Nguyen Work Phone: [facility] 05-25-2023 00:00-0400 Inhaled oxygen flow rate 2 L/min II Komal Nguyen Work Phone: [facility] 05-21-2023 13:47-0400 Body temperature 98.4 [degF] II Komal Nguyen Work Phone: [facility] 05-21-2023 13:47-0400 Diastolic blood pressure 82 mm[Hg] II Komal Nguyen Work Phone: [facility] 05-21-2023 13:47-0400 Heart rate 60 /min II Komal Nguyen Work Phone: [facility] 05-21-2023 13:47-0400 Inhaled oxygen flow rate 2 L/min II Komal Nguyen Work Phone: [facility] 05-21-2023 13:47-0400 Respiratory rate 20 /min II Komal Nguyen Work Phone: [facility] 05-21-2023 13:47-0400 SaO2% (BldA) [Mass fraction] 94 % II Komal Nguyen Work Phone: [facility] 05-21-2023 13:47-0400 Systolic blood pressure 145 mm[Hg] II Komal Nguyen Work Phone: [facility] 05-21-2023 05:35-0400 Body weight 145 kg II Komal Nguyen Work Phone: [facility] 05-18-2023 12:18-0400 Body height 175.26 cm II Komal Nguyen Work Phone: [facility] 05-15-2023 18:00-0400 Inhaled oxygen concentration 4 % II Komal Nguyen Work Phone: [facility] 10-18-2022 08:30-0500 Body temperature 97.59 [degF] Honorio Vuong MD Work Phone: [email or web address] 10-18-2022 08:30-0500 Diastolic blood pressure 81 mm[Hg] Honorio Vuong MD Work Phone: [email or web address] 10-18-2022 08:30-0500 Heart rate 75 /min Honorio Vuong MD Work Phone: [email or web address] 10-18-2022 08:30-0500 Respiratory rate 20 /min Honorio Vuong MD Work Phone: [email or web address] 10-18-2022 08:30-0500 SaO2% (BldA) [Mass fraction] 95 % Honorio Vuong MD Work Phone: [employer] 10-18-2022 08:30-0500 Systolic blood pressure 150 mm[Hg] Hoonrio Vuong MD Work Phone: [employer] 10-17-2022 06:00-0500 Body mass index (BMI) [Ratio] 48.42 kg/m2 Honorio Vuong MD Work Phone: [email or web address] 10-17-2022 06:00-0500 Body weight 144.44 kg Honorio Vuong MD Work Phone: [email or web address] 02-25-2023 19:51-0500 Body height 172.7 cm Honorio Vuong MD Work Phone: [facility] 09-07-2022 11:23-0500 Body height 172.72 cm Melonie Grijalvakwasi Rizvi WIRE TURNING MACHINE OPERATOR-COLLEGE COUNSELOR Work Phone: [facility] 250 DO Work Phone: 09-07-2022 11:23-0500 Body mass index (BMI) [Ratio] 49.72 kg/m2 Melonie Hanley Rizvi WIRE TURNING MACHINE OPERATOR-COLLEGE COUNSELOR Work Phone: [facility] 250 DO Work Phone: 09-07-2022 11:23-0500 Body surface area Derived from formula 2.52 m2 Melonie Hanley Rizvi WIRE TURNING MACHINE OPERATOR-COLLEGE COUNSELOR Work Phone: [facility] 250 DO Work Phone: 09-07-2022 11:23-0500 Body weight 148.33 kg Melonie Rizvi WIRE TURNING MACHINE OPERATOR-COLLEGE COUNSELOR Work Phone: [facility] 250 DO Work Phone: 09-07-2022 11:23-0500 Diastolic blood pressure 78 mm[Hg] Melonie Rzivi WIRE TURNING MACHINE OPERATOR-COLLEGE COUNSELOR Work Phone: [facility] 250 DO Work Phone: 09-07-2022 11:23-0500 Heart rate 64 /min Melonie Hanley Rizvi WIRE TURNING MACHINE OPERATOR-COLLEGE COUNSELOR Work Phone: [facility] 250 DO Work Phone: 09-07-2022 11:23-0500 Systolic blood pressure 122 mm[Hg] Melonietoni Grijalvakwasi Rizvi WIRE TURNING MACHINE OPERATOR-COLLEGE COUNSELOR Work Phone: [facility] 250 DO Work Phone: 05-06-2022 12:45-0400 Body weight 148.19 kg Celso Peñaloza MD, PhD Work Phone: [facility] 05-06-2022 12:45-0400 Diastolic blood pressure 55 mm[Hg] Celso Peñaloza MD, PhD Work Phone: [facility] 05-06-2022 12:45-0400 Heart rate 67 /min Celso Peñaloza MD, PhD Work Phone: [facility] 05-06-2022 12:45-0400 Systolic blood pressure 132 mm[Hg] Celso Peñaloza MD, PhD Work Phone: [facility] 03-29-2022 11:04-0400 Blood Pressure Location Yoko Rizvi Jr. [facility] 03-29-2022 11:04-0400 Diastolic blood pressure 80 mm[Hg] Yoko Rizvi Jr. [facility] 03-29-2022 11:04-0400 Heart rate 108 /min Yoko Rizvi Jr. [facility] 03-29-2022 11:04-0400 Respiratory rate 16 /min Yoko Rizvi Jr. [facility] 03-29-2022 11:04-0400 Systolic blood pressure 126 mm[Hg] Yoko Rizvi Jr. [facility] 03-03-2022 12:59-0400 Blood Pressure Location Yoko Rizvi Jr[facility] 03-03-2022 12:59-0400 Body temperature 97.88 [degF] Yoko Rizvi Jr[facility] 03-03-2022 12:59-0400 BP/Pulse Patient Position Yoko Rizvi Jr[facility] 03-03-2022 12:59-0400 Diastolic blood pressure 60 mm[Hg] Yoko Rizvi Jr[facility] 03-03-2022 12:59-0400 Heart rate 62 /min Yoko Rizvi Jr[facility] 03-03-2022 12:59-0400 Mean blood pressure 74 mm[Hg] Yoko Rizvi Jr[facility] 03-03-2022 12:59-0400 Respiratory rate 16 /min Yoko Rizvi Jr[facility] 03-03-2022 12:59-0400 SaO2% (BldA) [Mass fraction] 97 % Yoko Rizvi Jr[facility] 03-03-2022 12:59-0400 Systolic blood pressure 100 mm[Hg] Yoko Rizvi Jr[facility] 03-03-2022 12:04-0400 Body temperature 98.06 [degF] Yoko Rizvi Jr[facility] 03-03-2022 12:04-0400 Diastolic blood pressure 60 mm[Hg] Yoko Rizvi Jr[facility] 03-03-2022 12:04-0400 Heart rate 63 /min Yoko Rizvi Jr[facility] 03-03-2022 12:04-0400 Mean blood pressure 76 mm[Hg] Yoko Rizvi Jr[facility] 03-03-2022 12:04-0400 SaO2% (BldA) [Mass fraction] 94 % Yoko Rizvi Jr[facility] 03-03-2022 12:04-0400 Systolic blood pressure 106 mm[Hg] Yoko Rizvi Jr[facility] 03-03-2022 11:50-0400 Blood Pressure Location Yoko Rizvi Jr[facility] 03-03-2022 11:50-0400 Body temperature 97.52 [degF] Ykoo Rizvi Jr[facility] 03-03-2022 11:50-0400 Diastolic blood pressure 70 mm[Hg] Yoko Rizvi Jr[facility] 03-03-2022 11:50-0400 Heart rate 58 /min Yoko Rizvi Jr[facility] 03-03-2022 11:50-0400 Respiratory rate 10 /min Yoko Rizvi Jr[facility] 03-03-2022 11:50-0400 SaO2% (BldA) [Mass fraction] 95 % Yoko Rizvi Jr[facility] 03-03-2022 11:50-0400 Systolic blood pressure 141 mm[Hg] Yoko Rizvi Jr[facility] 03-03-2022 11:40-0400 Blood Pressure Location Yoko Rizvi Jr[facility] 03-03-2022 11:40-0400 Respiratory rate 17 /min Yoko Rizvi Jr[facility] 03-03-2022 11:35-0400 Respiratory rate 11 /min Yoko Rizvi Jr[facility] 03-03-2022 11:25-0400 Body temperature 97.16 [degF] Yoko Rizvi Jr[facility] 03-03-2022 11:20-0400 Respiratory rate 26 /min Yoko Rizvi Jr[facility] 03-03-2022 11:15-0400 Respiratory rate 19 /min Yoko Rizvi Jr[facility] 03-03-2022 08:04-0400 Mean blood pressure 86 mm[Hg] Yoko Rizvi Jr[facility] 03-03-2022 08:04-0400 Body temperature 98.42 [degF] Yoko Rizvi Jr[facility] 03-03-2022 08:04-0400 Heart rate 68 /min Yoko Rizvi Jr[facility] 02-17-2022 13:43-0400 Blood Pressure Location Yoko Rizvi Jr[facility] 02-17-2022 13:43-0400 Diastolic blood pressure 69 mm[Hg] Yoko Rizvi Jr[facility] 02-17-2022 13:43-0400 Systolic blood pressure 162 mm[Hg] Yoko Rizvi Jr[facility] 02-17-2022 13:30-0400 Blood Pressure Location Yoko Rizvi Jr[facility] 02-17-2022 13:30-0400 BP/Pulse Patient Position Yoko Rizvi Jr[facility] 02-17-2022 13:30-0400 Diastolic blood pressure 52 mm[Hg] Yoko Rizvi Jr[facility] 02-17-2022 13:30-0400 Heart rate 68 /min Yoko Rizvi Jr[facility] 02-17-2022 13:30-0400 Mean blood pressure 84 mm[Hg] Yoko Rizvi Jr[facility] 02-17-2022 13:30-0400 Respiratory rate 24 /min Yoko Rizvi Jr[facility] 02-17-2022 13:30-0400 SaO2% (BldA) [Mass fraction] 92 % Yoko Rizvi Jr[facility] 02-17-2022 13:30-0400 Systolic blood pressure 149 mm[Hg] Yoko Rizvi Jr[facility] 02-17-2022 13:30-0400 Body temperature 99.32 [degF] Yoko Rizvi Jr[facility] 02-01-2022 11:14-0400 Blood Pressure Location Yoko Rizvi Jr. [facility] 02-01-2022 11:14-0400 Diastolic blood pressure 43 mm[Hg] Yoko Rizvi Jr. [facility] 02-01-2022 11:14-0400 Heart rate 72 /min Yoko Rizvi Jr. [facility] 02-01-2022 11:14-0400 Respiratory rate 16 /min Yoko Rizvi Jr. [facility] 02-01-2022 11:14-0400 Systolic blood pressure 133 mm[Hg] Yoko Rizvi Jr. [facility] 12-27-2021 12:42-0400 Blood Pressure Location Yoko Rizvi Jr. [facility] 12-27-2021 12:42-0400 Diastolic blood pressure 65 mm[Hg] Yoko Rizvi Jr. [facility] 12-27-2021 12:42-0400 Heart rate 68 /min Yoko Rizvi Jr. [facility] 12-27-2021 12:42-0400 Systolic blood pressure 115 mm[Hg] Yoko Rizvi Jr. [facility] [place] Encounters Encounter Date Encounter Type Care Provider Facility Start: 07-28-2024 End: 07-31-2024 Evaluation and management of inpatient Kamaljit Melo Facility:[facility] Start: 07-24-2024 End: 07-24-2024 Bamboo flowsheet Leela Bocanegra DOG POUND ATTENDANT Work Phone: [facility] Start: 07-24-2024 End: 07-24-2024 Bamboo flowsheet Leela Bocanegra DOG POUND ATTENDANT Work Phone: [facility] Start: 07-24-2024 End: 07-24-2024 Office outpatient visit 25 minutes Leela Bocanegra DOG POUND ATTENDANT Work Phone: [facility] Comment on above: Localized edema (Michelle lissett Dx); Stage 3a chronic kidney disease (HCC) (CMS/HCC); Lumbosacral spondylosis without myelopathy; Acute non-recurrent sinusitis of other sinus Start: 07-24-2024 End: 07-24-2024 ambulatory LEELA BOCANEGRA Not Available Start: 07-15-2024 End: 07-17-2024 Dilia Nguyen MD Work Phone: [facility] Comment on above: Cervical stenosis of spinal canal Start: 07-09-2024 End: 07-12-2024 Evaluation and management of inpatient Komal Nguyen II Work Phone: [facility] Work Phone: Start: 07-01-2024 Non-patient / Non-visit Komal Nguyen II Work Phone: [facility] Work Phone: Start: 06-24-2024 Non-patient / Non-visit Komal Nguyen II Work Phone: [facility] Work Phone: Start: 06-22-2024 Non-patient / Non-visit Komal Nguyen II Work Phone: [facility] Work Phone: Start: 06-22-2024 End: 07-04-2024 Evaluation and management of inpatient II Komla Nguyen Work Phone: [facility] Work Phone: Start: 06-21-2024 Non-patient / Non-visit II Kenroy iel Nguyen Work Phone: [facility] Work Phone: Start: 06-19-2024 Non-patient / Non-visit II Kenroy iel Nguyen Work Phone: [facility] Work Phone: Start: 06-19-2024 End: 06-22-2024 Evaluation and management of inpatient II Komal Nguyen Work Phone: [facility] Work Phone: Start: 06-13-2024 End: 06-13-2024 Bamboo flowsheet Real Tuttle DPM Work Phone: [facility] Start: 06-13-2024 End: 06-13-2024 Bamboo flowsama Tuttle DPM Work Phone: [facility] Start: 06-13-2024 End: 06-13-2024 Patient encounter procedure Real Tuttle DPM Work Phone: [facility] Comment on above: 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 (Primary Dx); Venous insufficiency Start: 06-13-2024 End: 06-13-2024 ambulatory REAL TUTTLE Not Available Start: 06-10-2024 End: 06-10-2024 ambulatory Jadyn Wyman MD Facility:[facility] Start: 05-27-2024 End: 05-27-2024 Bamboo flowsheet Stanley Saunders DO Work Phone: [facility] Start: 05-27-2024 End: 05-27-2024 Bamboo flowsheet Stanley Saunders DO Work Phone: [facility] Start: 05-27-2024 End: 05-27-2024 Office outpatient visit 25 minutes Stanley Saunders DO Work Phone: [facility] Comment on above: Myasthenia gravis (C MS/HCC) (Primary Dx); Class 3 severe obesity due to excess calories with serious comorbidity and body mass index (BMI) of 45.0 to 49.9 in adult (CMS/HCC) Start: 05-27-2024 End: 05-27-2024 ambulatory STANLEY SAUNDERS Not Available Start: 02-20-2024 End: 02-20-2024 ambulatory DARINEL SMITH Not Available Start: 02-14-2024 End: 02-14-2024 ambulatory MOOKIE COFFEY Not Available Start: 02-12-2024 End: 02-12-2024 Emergency department patient visit II Komal Nguyen Work Phone: [facility] Work Phone: Start: 01-25-2024 End: 01-25-2024 ambulatory REAL TUTTLE Not Available Start: 01-17-2024 End: 01-17-2024 ambulatory LEELA BOCANEGRA Not Available Start: 12-21-2023 End: 12-21-2023 ambulatory ANNAMARIAMANUEL CHIP Not Available Start: 12-18-2023 End: 12-18-2023 ambulatory Jadyn Wyman MD Facility:[facility] Start: 12-11-2023 End: 12-11-2023 ambulatory KOMAL NGUYEN Not Available Start: 11-29-2023 End: 11-29-2023 ambulatory ALEM TATTERSALL Not Available Start: 11-17-2023 End: 11-17-2023 ambulatory AIDE MCNAMARAZEFERINO Not Available Start: 11-16-2023 End: 11-16-2023 ambulatory REAL Butler PARAG Not Available Start: 11-15-2023 End: 11-15-2023 ambulatory [facility] Ambulatory Start: 11-13-2023 End: 11-13-2023 ambulatory ALEM TATTERSALL Not Available Start: 11-08-2023 End: 11-08-2023 ambulatory ALEM TATTERSALL Not Available Start: 11-06-2023 End: 11-06-2023 ambulatory KOMAL NGUYEN Not Available Start: 10-30-2023 End: 10-30-2023 ambulatory ALEM TATTERSALL Not Available Start: 10-25-2023 End: 10-25-2023 ambulatory ALEM TATTERSALL Not Available Start: 10-16-2023 End: 10-16-2023 ambulatory ALEM TATTERSALL Not Available Start: 10-11-2023 End: 10-12-2023 ambulatory KOMAL NGUYEN Facility:[facility] Start: 10-09-2023 End: 10-09-2023 ambulatory ALEM [...] gravis without (acute) exacerbation (G70.00); Atherosclerosis of habematolel artery of both lower extremities with intermittent claudication (CMS/HCC); Morbid (severe) obesity due to excess calories (E66.01); Body mass index [BMI] 45.0-49.9, adult (Z68.42) Start: 10-05-2023 End: 10-05-2023 ambulatory KOMAL NGUYEN Not Available Start: 10-04-2023 Bamboo flowsheet Alem Sampson P TA [facility] Start: 10-04-2023 Bamboo flowsheet Alem Sampson P TA [facility] Start: 10-04-2023 End: 10-04-2023 ambulatory Alem Sampson WRAPPER OFF [facility] Comment on above: Bilateral leg weakne ss (Primary Dx); Difficulty walking; Right leg pain Start: 09-28-2023 End: 09-28-2023 ambulatory Anderson Mckinnon WRAPPER OFF [facility] Comment on above: Bilateral leg weakne ss (Primary Dx); Difficulty walking; Right leg pain Start: 09-25-2023 Telephone encounter Komal kelly MD Work Phone: [facility] Start: 09-25-2023 End: 09-25-2023 ambulatory ANDERSON MCKINNON Not Available Start: 09-21-2023 End: 09-21-2023 ambulatory Anderson Mckinnon WRAPPER OFF [facility] Comment on above: Bilateral leg weakne ss (Primary Dx); Difficulty walking; Right leg pain Start: 09-20-2023 End: 09-20-2023 ambulatory [facility] Ambulatory Start: 09-20-2023 End: 09-20-2023 Office outpatient visit 25 minutes Baltazar Hoover DO Work Phone: [facility] Comment on above: Paroxysmal atrial fi brillation (CMS/HCC); Pulmonary embolism, unspecified chronicity, unspecified pulmonary embolism type, unspecified whether acute cor pulmonale present (CMS/HCC); Myasthenia gravis (CMS/HCC); High risk medication use; Essential hypertension; Mixed hyperlipidemia; Morbid obesity with BMI of 45.0-49.9, adult ([facility] Start: 09-18-2023 End: 09-18-2023 ambulatory ALEM SAMPSON Not Available Start: 09-14-2023 End: 09-14-2023 ambulatory KOMAL NGUYEN Facility:[facility] Start: 09-14-2023 End: 09-14-2023 ambulatory Komal Nguyen Facility:[facility] Start: 09-13-2023 End: 09-13-2023 ambulatory ANDERSON MCKINNON Not Available Start: 09-11-2023 End: 09-11-2023 ambulatory DARINEL SMITH Not Available Start: 09-07-2023 End: 09-07-2023 ambulatory REAL TUTTLE Not Available Start: 08-03-2023 End: 08-03-2023 ambulatory KOMAL NGUYEN Not Available Start: 05-21-2023 End: 06-10-2023 Evaluation and management of inpatient II Komal Nguyen Work Phone: [facility] Work Phone: Start: 05-19-[address] Komal Nguyen II Facility:[id number] Start: 05-18-[address] Komal Nguyen II Facility:[id number] Start: 05-16-[address] Komal Nguyen II Facility:[id number] Start: 05-10-2023 End: 05-21-2023 Evaluation and management of inpatient II Komal Nguyen Work Phone: [facility] Work Phone: Start: 03-09-2023 End: 03-10-2023 ambulatory II Komal Nguyen Work Phone: [facility] Work Phone: Start: 03-09-2023 End: 03-09-2023 Departed Referred II Komal Nguyen Work Phone: [facility] Start: 12-08-2022 End: 12-09-2022 ambulatory Ivan J Barnhart Facility:[facility] Start: 11-21-2022 End: 12-07-2022 ambulatory Ivan J [facility] Facility:[facility] Start: 10-31-2022 End: 11-18-2022 ambulatory Ivan J [facility] Facility:[facility] Start: 10-19-2022 End: 10-28-2022 ambulatory [facility] Facility:[facility] Start: 10-15-2022 End: 10-18-2022 Evaluation and management of inpatient KOMAL NGUYEN [facility] Start: 10-15-2022 End: 10-18-2022 Evaluation and management of inpatient Honorio Vuong MD Work Phone: [facility] Start: 09-07-2022 Office outpatient vi sit 25 minutes Melonie Rizvi WIRE TURNING MACHINE OPERATOR-COLLEGE COUNSELOR Work Phone: [facility] DO Work Phone: Start: 09-07-2022 Patient encounter procedure Melonie Rizvi WIRE TURNING MACHINE OPERATOR-COLLEGE COUNSELOR Work Phone: [facility] 250 DO Work Phone: Start: 09-07-[address] Komal Nguyen II Facility: Start: 08-30-2022 End: 08-30-2022 ambulatory II Komal Nguyen Work Phone: [facility] Work Phone: Start: 08-30-2022 End: 08-30-2022 Departed Referred II Komal Nguyen Work Phone: [facility] Start: 06-28-2022 End: 06-28-2022 ambulatory II Komal Nguyen Work Phone: [facility] Work Phone: Start: 06-28-2022 End: 06-28-2022 Departed Referred II Komal Nguyen Work Phone: [facility] Start: 06-14-2022 End: 06-14-2022 ambulatory II Komal Nguyen Work Phone: [facility] Work Phone: Start: 06-14-2022 End: 06-14-2022 Departed Referred GEOVANY Nguyen Work Phone: [facility] Start: 05-06-2022 ambulatory Celso Peñaloza MD , PhD Work Phone: Urology Start: 05-06-2022 End: 05-06-2022 Patient encounter procedure Celso Peñaloza MD, PhD Work Phone: Urology Comment on above: Malignant neoplasm o f overlapping sites of bladder (HCC) (Primary Dx) Start: 03-29-2022 End: 03-30-2022 ambulatory Yoko Rizvi Facility:[facility] Start: 03-29-2022 End: 03-29-2022 Patient encounter procedure Yoko Rizvi Jr. [facility] Start: 03-29-2022 ambulatory Yoko Rizvi Facility:[facility] Start: 03-03-2022 End: 03-03-2022 ambulatory Yoko Rizvi Facility:[facility] Start: 03-03-2022 End: 03-03-2022 Admission to same day surgery center Yoko Rizvi Jr. [facility] Start: 02-17-2022 End: 02-18-2022 ambulatory Yoko Rizvi Facility:[facility] Start: 02-17-2022 End: 02-17-2022 Patient encounter procedure Yoko Rizvi Jr. [facility] Start: 02-01-2022 End: 02-02-2022 ambulatory Yoko Rizvi Facility:[facility] Start: 02-01-2022 End: 02-01-2022 Patient encounter procedure Yoko Rizvi Jr. [facility] Start: 01-21-2022 End: 01-22-2022 ambulatory MASHA Magdalena KLEINRY Facility:[facility] Start: 01-21-2022 End: 01-21-2022 Lab Drop off MASHA LEY [facility] Start: 01-21-2022 End: 01-21-2022 Patient encounter procedure Yoko Rizvi Jr. [facility] Start: 01-18-2022 End: 01-19-2022 ambulatory Yoko Rizvi Facility:[facility] Start: 01-18-2022 End: 01-18-2022 Patient encounter procedure Yoko Rizvi Jr. [facility] Start: 01-12-2022 End: 01-13-[address] YOKO RIZVI JR Facility: Start: 01-11-2022 Encounter for preprocedural cardiovascular examination DR YOKO RIZVI JR [facility] Start: 01-11-2022 Encounter for preprocedural laboratory examination DR YOKO RIZVI JR [facility] Start: 01-08-[address] YOKO RIZVI JR Fa cility:[facility] Start: 01-05-2022 End: 01-06-[address] YOKO RIZVI JR Facility:[facility] Start: 01-05-2022 End: 01-06-2022 Encounter for preprocedural cardiovascular examination DR YOKO RIZVI JR Facility: Start: 12-27-2021 End: 12-28-2021 ambulatory Yoko Rizvi Facility:[facility] Start: 12-27-2021 End: 12-27-2021 Patient encounter procedure Yoko Rizvi Jr. [facility] Start: 12-15-2021 End: 12-16-[address] YOKO RIZVI JR Facility:[facility] Start: 12-07-2021 ambulatory Yoko Rzivi Facility:[facility] Start: 12-07-2021 End: 12-08-2021 ambulatory Yoko Rizvi [facility] Start: 12-07-2021 End: 12-07-2021 Patient encounter procedure Yoko Rizvi Jr. [facility] [place] Start: 11-05-2021 ambulatory Yoko Rizvi Facility:[facility] Start: 05-25-2021 End: 05-25-[address] KOMAL NGUYEN Facility:[facility] Start: 04-19-2021 End: 04-20-[address] KOMAL NGUYEN Facility:[facility] Start: 02-09-2021 End: 02-10-2021 ambulatory LEELA BOCANEGRA Facility:[facility] Start: 01-11-2018 Ambulatory BALTAZAR [place] ity:[id number] Start: 01-08-2018 Ambulatory OLIVIA HALL Facility :[id number] Imaging result normal Melonie Rizvi WIRE TURNING MACHINE OPERATOR-COLLEGE COUNSELOR Work Phone: [facility] [address] DO Work Phone: Procedures Date Procedure Procedure Detail Performing Clinician Start: 07-09-2024 CT angiography of head Komal Nguyen II Work Phone: Start: 07-09-2024 CT angiography of ne ck vessels Komalescobar Nguyen II Work Phone: Start: 07-09-2024 CT of head without contrast Komal Nguyen II Work Phone: Start: 07-09-2024 Plain chest X-ray Uche Nguyen II Work Phone: Start: 06-19-2024 Plain chest X-ray II Amador Nguyen Work Phone: Start: 02-12-2024 Plain chest X-ray II Amador [...] ba cteria, including anaerobic screen II Komal Ngyuen Work Phone: Start: 05-16-2023 Urine culture II Komal Nguyen Work Phone: Start: 05-15-2023 Plain chest X-ray II Amador Nguyen Work Phone: Start: 05-14-2023 Plain chest X-ray II Amador Nguyen Work Phone: Start: 05-13-2023 Plain chest X-ray II Amador aguilar Nguyen Work Phone: Start: 05-12-2023 Aerobic microbial [...] prostate Yoko Rizvi Jr. Appendectomy Melonie maravilla WIRE TURNING MACHINE OPERATOR-COLLEGE COUNSELOR Work Phone: Cardiac catheterization Alondra Rizvi Jr. Cardiac catheterization Amandeep Rizvi WIRE TURNING MACHINE OPERATOR-COLLEGE COUNSELOR Work Phone: Cataract surgery Melonie Rizvi WIRE TURNING MACHINE OPERATOR-COLLEGE COUNSELOR Work Phone: Entire neck (body structure) Yoko Rizvi Jr. Comment on above: 2017 Excision of neoplasm Melonie Rizvi WIRE TURNING MACHINE OPERATOR-COLLEGE COUNSELOR Work Phone: Comment on above: bladder; Extraction of cataract Horace Rizvi Jr. Procedure on neck Melonie Rizvi WIRE TURNING MACHINE OPERATOR-COLLEGE COUNSELOR Work Phone: Total colonoscopy Melonie Rizvi WIRE TURNING MACHINE OPERATOR-COLLEGE COUNSELOR Work Phone: Comment on above: PROCEDURE DATE 2007; Plan of Treatment Date Care Activity Detail Author Start: 04-27-2025 DIABETES SCREEN DIABETES SCREEN [facility] Start: 10-05-2024 Medicare Annual Well ness (AWV) Medicare Annual Wellness (AWV) [facility] Start: 09-25-2024 Urine screening for protein Diabetes: Urine Protein Screening [facility] Start: 09-24-2024 End: 09-24-2024 Patient encounter procedure 09/24/2024 2:20 PM EST Office Visit [facility] [address] [facility] [address] [place] [phone] Baltazar Hoover DO [address] [facility] [place] [address] [facility] Start: 08-22-2024 End: 08-22-2024 Patient encounter procedure 08/22/2024 3:00 PM EST Procedure Visit [facility] [address] [place] [phone] Real Tuttle DPM [address] [facility] [address] [place] [address] [facility] Start: 07-24-2024 End: 07-24-2025 Basic metabolic 1998 panel - Serum or Plasma Basic metabolic panel Lab Routine Localized edema Stage 3a chronic kidney disease (HCC) (CMS/HCC) Expected: 07/24/2024 (Approximate), Expires: 07/24/2025 [facility] Work Phone: Comment on above: Expected: 07/24/2024 (Approximate), Expires: 07/24/2025 Start: 07-24-2024 End: 07-24-2024 Patient encounter procedure 07/24/2024 8:30 AM EST Office Visit [facility] [address] [place] [address] Leela Bocanegra, DOG POUND ATTENDANT [address] [place] [address] Arrived [facility] Comment on above: Arrived Start: 07-23-2024 End: 07-23-2024 Patient encounter procedure 07/23/2024 1:40 PM EST Office Visit [facility] [address] [place] [address] Rbuia Henning, DOG POUND ATTENDANT [address] [place], [facility] [address] Start: 07-22-2024 End: 07-22-2024 Patient encounter procedure 07/22/2024 1:00 PM EST Office Visit [facility] [place] [address] Mookie Coffey DOG POUND ATTENDANT [address] [place] [address] [facility] [address] Start: 07-12-2024 [facility] Start: 07-11-2024 [facility] Start: 07-10-2024 [facility] Start: 07-09-2024 [facility] Start: 07-09-2024 Hospital admission [facility] Start: 07-09-2024 Referral to neurologist [facility] Start: 07-09-2024 [facility] Start: 07-04-2024 [facility] Start: 06-29-2024 [facility] Start: 06-28-2024 [facility] Start: 06-27-2024 [facility] Start: 06-26-2024 [facility] Start: 06-25-2024 [facility] Start: 06-24-2024 [facility] Start: 06-23-2024 [facility] Start: 06-22-2024 Hospital admission [facility] Start: 06-22-2024 Referral to clinical head of advertising [facility] Start: 06-22-2024 End: 06-22-2024 [facility] Start: 06-21-2024 [facility] Start: 06-20-2024 Referral to rehabilitation physician [facility] Start: 06-20-2024 Referral to rehabilitation physician [facility] Start: 06-20-2024 [facility] Start: 06-19-2024 Physical therapy procedure [facility] Start: 06-19-2024 Referral to occupati onal therapist [facility] Start: 06-19-2024 Referral to speech a nd language therapy service [facility] Start: 06-19-2024 [facility] Start: 06-19-2024 Consultation [facility] Start: 06-19-2024 Hospital admission [facility] Start: 06-19-2024 Referral to neurologist [facility] Start: 06-19-2024 [facility] Start: 06-13-2024 End: 06-13-2024 Patient encounter procedure [facility] Comment on above: 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 [address] [place] [phone] Melonie Rizvi, WIRE TURNING MACHINE OPERATOR-COLLEGE COUNSELOR [address] [place] [address] [facility] Start: 02-12-2024 Bacteria identified in Blood by Culture [facility] Start: 12-24-2023 Hemoglobin A1c measurement Diabetes: Hemoglobin A1C [facility] Start: 11-16-2023 End: 11-16-2023 Patient encounter procedure 11/16/2023 3:40 PM EDT Procedure Visit [facility] [address] [facility] [address] [place] [phone] Real Tuttle, DPMarcial [address] [facility] [address] [place] [address] [facility] Start: 11-15-2023 End: 09-20-2024 Holter monitor study Holter Or Event Hand Iii Cutter Cardiac Services Routine Paroxysmal atrial fibrillation (CMS/HCC) Expected: 11/15/2023, Expires: 09/20/2024 [facility] Service Area Work Phone: Comment on above: Expected: 11/15/2023 , Expires: 09/20/2024 Start: 11-15-2023 End: 11-15-2023 Professional / ancillary services management 11/15/2023 1:00 PM EDT Ancillary Procedure [facility] [address] [facility] [address] [place] [address] [facility] Start: 10-09-2023 End: 10-09-2023 ambulatory [facility] Start: 10-05-2023 End: 10-05-2023 Patient encounter procedure 10/05/2023 1:15 PM EST Office Visit [facility] [address] [facility] [address] [place] [phone] Komal Nguyen MD [address] [facility] [address] [place] [address] [facility] Start: 10-04-2023 End: 10-04-2023 ambulatory [facility] Comment on above: Arrived Start: 09-28-2023 End: 09-28-2023 ambulatory 09/28/2023 1:30 PM EST Treatment [facility] [address] [facility] [address] [place] [phone] Anderson Mckinnon PTA [facility] Start: 09-25-2023 End: 09-25-2024 CBC W Auto Differential panel - Blood CBC and differential Lab Routine Paroxysmal atrial fibrillation (CMS/HCC) Expected: 09/25/2023 (Approximate), Expires: 09/25/2024 [facility] Comment on above: Expected: 09/25/2023 (Approximate), Expires: 09/25/2024 Start: 09-25-2023 End: 09-25-2024 Comprehensive metabolic 2000 panel - Serum or Plasma Comprehensive metabolic panel Lab Routine Benign essential hypertension (CMS/HCC) Expected: 09/25/2023 (Approximate), Expires: 09/25/2024 [facility] Comment on above: Expected: 09/25/2023 (Approximate), Expires: 09/25/2024 Start: 09-25-2023 End: 09-25-2024 Hemoglobin A1c measurement Hemoglobin A1c Lab Routine Type 2 diabetes mellitus with diabetic neuropathy, without long-term current use of insulin ([facility]/HCC) Expected: 09/25/2023 (Approximate), Expires: 09/25/2024 [facility] Work Phone: Comment on above: Expected: 09/25/2023 (Approximate), Expires: 09/25/2024 Start: 09-25-2023 End: 09-25-2024 Lipid 1996 panel - Serum or Plasma Lipid panel Lab Routine Type 2 diabetes mellitus with diabetic neuropathy, without long-term current use of insulin ([facility]) Benign essential hypertension (CMS/HCC) Expected: 09/25/2023 (Approximate), Expires: 09/25/2024 [facility] Comment on above: Expected: 09/25/2023 (Approximate), Expires: 09/25/2024 Start: 09-25-2023 End: 09-25-2024 TSH W/REFLEX TO FT4 TSH W/REFLEX TO FT4 Lab Routine Type 2 diabetes mellitus with diabetic neuropathy, without long-term current use of insulin ([facility]/HCC) Expected: 09/25/2023 (Approximate), Expires: 09/25/2024 [facility] Comment on above: Expected: 09/25/2023 (Approximate), Expires: 09/25/2024 Start: 09-25-2023 End: 09-25-2023 ambulatory 09/25/2023 12:30 PM EST Treatment [facility] [address] [place] [phone] Pratibha AndersonUSMAN [facility] Start: 08-24-2023 FUV, Provider: Baltazar Hoover, Status: Pen, Time: 11:10 AM FUV, Provider: Baltazar Hoover, Status: Pen, Time: 11:10 AM -[facility] [address] DO Work Phone: Start: 07-01-2023 Hemoglobin A1c measurement Diabetes: Hemoglobin A1C [facility] Start: 06-10-2023 [facility] Start: 05-22-2023 [facility] Start: 05-21-2023 [facility] Start: 05-21-2023 Administration of prophylactic treatment [facility] Start: 05-21-2023 Hospital admission [facility] Start: 05-21-2023 Referral to clinical head of advertising [facility] Start: 05-21-2023 [facility] Start: 05-18-2023 Administration of prophylactic treatment [facility] Start: 05-18-2023 [facility] Start: 05-16-2023 Referral to rehabilitation physician [facility] Start: 05-16-2023 [facility] Start: 05-11-2023 Consultation [facility] Start: 05-11-2023 Hospital admission [facility] Start: 05-11-2023 Referral to neurologist [facility] Start: 05-10-2023 Respiratory Ventilat ion, Greater than 96 Consecutive Hours Respiratory Ventilation, Greater than 96 Consecutive Hours [facility] Start: 04-21-2023 COVID-19 Vaccine ( season) COVID-19 Vaccine ( season) [facility] Start: 04-21-2022 Influenza vaccination INFLUENZA (#1) [facility] Start: 03-21-2022 Influenza vaccination Flu vaccine (# 1) [facility] Start: 09-25-2021 COVID-19 VACCINE (4 - Booster for Pfizer series) COVID-19 VACCINE (4 - Booster for Pfizer series) [facility] Start: 08-21-2021 ADVANCE DIRECTIVE DISCUSSION ADVANCE DIRECTIVE DISCUSSION [facility] Start: 08-17-2021 Urine screening for protein Diabetes: Urine Protein Screening [facility] Start: 07-19-2021 COVID-19 Vaccine (4 - Booster for Pfizer series) COVID-19 Vaccine (4 - Booster for Pfizer series) [facility] Start: 07-03-2012 Zoster Vaccines (2 of 3) Zoste r Vaccines (2 of 3) [facility] Start: 2008 PNEUMOCOCCAL: 65+ (1 - PCV) PNEUMOCOCCAL: 65+ (1 - PCV) [facility] Start: 1993 SHINGRIX VACCINE (1 of 2) SHINGRIX VACCINE (1 of 2) [facility] Start: 1965 DTaP/Tdap/Td Vaccine s (1 - Tdap) DTaP/Tdap/Td Vaccines (1 - Tdap) [facility] Start: 1962 DTaP/Tdap/Td vaccine (1 - Tdap) DTaP/Tdap/Td vaccine (1 - Tdap) [facility] Start: 1962 Urine microalbumin profile DTAP,TDAP,TD (1 - Tdap) [facility] Start: 1961 Diabetes mellitus screening Diabetes Screening [facility] Start: 1961 HEPATITIS C SCREENING HEPATITIS C [facility] Start: 1961 Hepatitis C screening Hepatitis C [facility] Start: 1955 Adult depression screening assessment DEPRESSION SCREENING [facility] Start: 1953 Glaucoma screening Diabetes: R etinopathy Screening [facility] Start: 1943 Lipid panel Lipid Panel [facility] Start: 1943 Medicare Annual Well ness (AWV) Medicare Annual Wellness (AWV) [facility] Start: 1943 Medicare Annual Well ness Visit Medicare Annual Wellness Visit (AWV) [facility] Start: 1943 Thyroid stimulating hormone measurement TSH Level [facility] End: 11-06-2022 Basic metabolic 2000 panel - Serum or Plasma Basic Metabolic Panel Lab Routine Daily for 3 Weeks starting 10/17/2022 until 11/06/2022, 2 completed [facility] [employer] Work Phone: Comment on above: Daily for [address] arting 10/17/2022 until 11/06/2022, 2 completed End: 11-06-2022 CBC panel - Blood by Automated count CBC Lab Routine Daily for 3 Weeks starting 10/17/2022 until 11/06/2022, 2 completed [email or web address] Work Phone: Comment on above: Daily for [address] arting 10/17/2022 until 11/06/2022, 2 completed Home BIPAP or CPAP Home BIPAP or CPAP Respiratory Care Routine Daily until discontinued starting 10/17/2022 [email or web address] Work Phone: Comment on above: Daily until disconti nued starting 10/17/2022 End: 10-15-2022 Intermittent pulse oximetry Pulse Oximetry Spot Check Respiratory Care Routine Continuous until discontinued starting 10/15/2022 [email or web address] Work Phone: Comment on above: Continuous until dis continued starting 10/15/2022 Oxygen therapy [[facility] Data Set] Initiate Oxygen Therapy Protocol Respiratory Care Routine As Needed until discontinued starting 10/15/2022 [email or web address] Work Phone: Comment on above: As Needed until disc ontinued starting 10/15/2022 Patient Education [facility] Work Phone: Patient referral [facility] Work Phone: [facility] Immunizations Immunization Date Immunization Notes Care Provider Bright montes 06-22-2024 influenza, high dose seasonal, preservative-free II Komal Nguyen Work Phone: [facility] 06-22-2023 Influenza, High-dose Seasonal, Quadrivalent, Preservative Free Anderson Mckinnon [facility] 06-22-2023 influenza virus vaccine, unspecified formulation Stanley Saunders DO Work Phone: [facility] 07-21-[address] 12 Years And Older Anderson Mckinnon WRAPPER OFF [facility] 07-21-2022 Pfizer COVID-19 Vac Bivalent 30 MCG/0.3ML Intramuscular Suspension Melonie Rizvi WIRE TURNING MACHINE OPERATOR-COLLEGE COUNSELOR Work Phone: [facility] 250 DO Work Phone: 07-13-2022 Fluzone High-Dose Quadrivalent 0.7 ML Intramuscular Suspension Prefilled Syringe Melonietoni Rizvi WIRE TURNING MACHINE OPERATOR-COLLEGE COUNSELOR Work Phone: [facility] 250 DO Work Phone: 05-25-2021 Pfizer-BioNTech COVID-19 Vacc 30 MCG/0.3ML Intramuscular Suspension Melonie Grijalvakwasi Rizvi WIRE TURNING MACHINE OPERATOR-COLLEGE COUNSELOR Work Phone: [facility] 250 DO Work Phone: 05-20-2021 Fluad Quadrivalent 0 .5 ML Intramuscular Prefilled Syringe Melonie Rizvi WIRE TURNING MACHINE OPERATOR-COLLEGE COUNSELOR Work Phone: [place] [address] DO Work Phone: 05-20-2021 Seasonal, trivalent, recombinant, injectable influenza vaccine, preservative free Andersonkathy Mckinnon [facility] 02-18-2021 SARS-CoV-2 (COVID-19 ) mRNA BNT-162b2 liana Rizvi Jr. [facility] 11-10-2020 Pfizer-BioNTech COVID-19 Vacc 30 MCG/0.3ML Intramuscular Suspension Melonie Rizvi WIRE TURNING MACHINE OPERATOR-COLLEGE COUNSELOR Work Phone: [place] [address] DO Work Phone: 10-19-2020 Pfizer-BioNTech COVID-19 Vacc 30 MCG/0.3ML Intramuscular Suspension Melonie Rizvi WIRE TURNING MACHINE OPERATOR-COLLEGE COUNSELOR Work Phone: [facility] 250 DO Work Phone: 09-21-2020 SARS-CoV-2 (COVID-19 ) mRNA BNT-162b2 liana Rizvi Jr. [facility] 08-21-2020 SARS-CoV-2 (COVID-19 ) mRNA BNT-162b2 vax Yoko Autumn Molina [facility] 05-06-2020 influenza, high dose seasonal, preservative-free Melonie Rizvi WIRE TURNING MACHINE OPERATOR-COLLEGE COUNSELOR Work Phone: [place] [address] DO Work Phone: 05-06-2020 Influenza, High-dose Seasonal, Quadrivalent, Preservative Free Anderson Mckinnon [facility] 04-21-2020 influenza virus vaccine, unspecified formulation Melonie Rizvi WIRE TURNING MACHINE OPERATOR-COLLEGE COUNSELOR Work Phone: [place] [address] DO Work Phone: 04-21-2020 influenza, seasonal, injectable Baltazar Kiko DO Work Phone: [facility] Work Phone: 05-27-2019 influenza, high dose seasonal, preservative-free Baltazar Hoover DO Work Phone: [facility] Work Phone: 05-27-2019 Influenza, High-dose Seasonal, Quadrivalent, Preservative Free Anderson Mckinnon [facility] 05-21-2019 influenza virus vaccine, unspecified formulation Melonie Rizvi WIRE TURNING MACHINE OPERATOR-COLLEGE COUNSELOR Work Phone: [place] [address] DO Work Phone: 05-21-2019 influenza, seasonal, injectable Baltazar Hoover DO Work Phone: [facility] Work Phone: 05-23-2018 influenza, high dose seasonal, preservative-free Melonie Rizvi WIRE TURNING MACHINE OPERATOR-COLLEGE COUNSELOR Work Phone: [facility] 250 DO Work Phone: 05-23-2018 Influenza, High-dose Seasonal, Quadrivalent, Preservative Free Anderson Mckinnon [facility] 11-30-2017 pneumococcal polysaccharide vaccine, 23 valent Melonie Rizvi WIRE TURNING MACHINE OPERATOR-COLLEGE COUNSELOR Work Phone: [facility] 06-27-2017 influenza, high dose seasonal, preservative-free Melonie Rizvi WIRE TURNING MACHINE OPERATOR-COLLEGE COUNSELOR [facility]: [facility] DO Work Phone: 05-21-2017 pneumococcal vaccine , unspecified formulation Melonie Rizvi WIRE TURNING MACHINE OPERATOR-COLLEGE COUNSELOR Work Phone: [facility] 250 DO Work Phone: 05-17-2017 influenza, high dose seasonal, preservative-free Melonie Rizvi WIRE TURNING MACHINE OPERATOR-COLLEGE COUNSELOR Work Phone: [facility] 250 DO Work Phone: 05-17-2017 Influenza, High-dose Seasonal, Quadrivalent, Preservative Free [facility] [facility] 08-06-2016 pneumococcal conjuga te vaccine, 13 valent Stanley Saunders DO Work Phone: [facility] 05-21-2016 pneumococcal conjuga te vaccine, 13 valent Melonie Grijalvakwasi Rizvi WIRE TURNING MACHINE OPERATOR-COLLEGE COUNSELOR Work Phone: [facility] 250 DO Work Phone: 10-26-2015 pneumococcal conjuga te vaccine, 13 valent Melonie Grijalvakwasi Rizvi WIRE TURNING MACHINE OPERATOR-COLLEGE COUNSELOR Work Phone: [facility] 250 DO Work Phone: 05-22-2015 seasonal influenza, intradermal, preservative free [facility] 05-30-2014 seasonal influenza, intradermal, preservative free [facility] 05-08-2012 zoster vaccine, live [facility] 10-19-2004 pneumococcal polysaccharide vaccine, 23 valent [facility] Payers Date Payer Category Payer Self-pay [id number] 2022 Unknown 2016 Private Health Insurance [id number] 2008 Medicare [id number]. [id number] 1959 Medicare [id number] 1959 Unknown [id number] 1943 Unknown [id number] 2.16.84 0.1.483195.3.579.2.593 1943 Unknown [id number] 2.16.84 0.1.861478.3.579.2.593 1943 Unknown [id number] 2.16.84 0.1.225521.3.579.2.593 1943 Unknown [id number] 2.16.84 0.1.945446.3.579.2.593 1943 Unknown [id number] 2.16.84 0.1.151341.3.579.2.593 1943 Unknown [id number] 2.16.84 0.1.090502.3.579.2.593 1943 Unknown [id number] 2.16.84 0.1.939626.3.579.2.593 1943 Unknown [id number] 2.16.8 40.1.082944.3.579.2.727 1943 Unknown [id number] 2.16.8 40.1.277807.3.579.2.727 1943 Unknown [id number] 2.16.8 40.1.675209.3.579.2.727 1943 Unknown [id number] 2.16.8 40.1.002899.3.579.2.727 1943 Unknown [id number] 2.16.8 40.1.075695.3.579.2.727 1943 Unknown [id number] 2.16.8 40.1.031713.3.579.2.727 1943 Unknown [id number] 2.16.8 40.1.799638.3.579.2.727 1943 Unknown [id number] 2.16.8 40.1.948868.3.579.2.727 1943 Unknown [id number] 2.16.8 40.1.345758.3.579.2.727 1943 Unknown [id number] 2.16.8 40.1.009760.3.579.2.727 1943 Unknown [id number] 2.16.8 40.1.996704.3.579.2.727 1943 Unknown [id number] 2.16.8 40.1.266550.3.579.2.727 1943 Unknown [id number] 2.16.8 40.1.833284.3.579.2.727 1943 Unknown [id number] 2.16. 840.1.876471.3.579.2.175 1943 Unknown [id number] 2. 840.1.686411.3.579.2.356 1943 Unknown [id number] 2. 840.1.294592.3.579.2.356 1943 Unknown [id number] 2.16 840.1.866119.3.579.2.356 1943 Unknown [id number] 2.16. 840.1.804080.3.579.2.356 1943 Unknown [id number] 2.16 840.1.487624.3.579.2.356 1943 Unknown [id number] 2.16.8 40.1.158846.3.579.2.718 1943 Unknown [id number] 2.16.8 40.1.271801.3.579.2.718 1943 Unknown [id number] 2.16.8 40.1.268938.3.579.2.718 1943 Unknown [id number] 2.16.8 40.1.799858.3.579.2.718 1943 Unknown [id number] 2.16.8 40.1.892686.3.579.2.718 1943 Unknown [id number] 2.16.8 40.1.471249.3.579.2.718 1943 Unknown [id number] 2.16.8 40.1.195471.3.579.2.718 1943 Unknown [id number] 2.16.8 40.1.730807.3.579.2.1244 1943 Unknown [id number] 2.16.8 40.1.641698.3.579.2.1244 1943 Unknown [id number] 2.16. 840.1.967034.3.579.2.196 1943 Unknown [id number] 2.16. 840.1.863853.3.579.2.196 1943 Unknown [id number] 2.16.84 0.1.759552.3.579.2.1259 1943 Unknown [id number] 2.16.84 0.1.134288.3.579.2.1259 1943 Unknown [id number] 2.16.84 0.1.447628.3.579.2.1259 1943 Unknown [id number] 2.16.84 0.1.962825.3.579.2.1259 1943 Unknown [id number] 2.16.84 0.1.144932.3.579.2.1259 1943 Unknown [id number] 2.16.84 0.1.277550.3.579.2.1259 1943 Unknown [id number] 2.16.84 0.1.800325.3.579.2.9 1943 Unknown [id number] 2.16.84 0.1.621378.3.579.2.9 1943 Unknown [id number] 2.16.84 0.1.168595.3.579.2.9 1943 Unknown [id number] 2.16.84 0.1.221053.3.579.2.9 1943 Unknown [id number] 2.16.84 0.1.757430.3.579.2.1258 1943 Unknown [id number] 2.16.84 0.1.005213.3.579.2.1258 1943 Unknown [id number] 2.16.84 0.1.265884.3.579.2.1258 1943 Unknown [id number] 2.16.84 0.1.061447.3.579.2.1258 1943 Unknown [id number] 2.16.84 0.1.178375.3.579.2.9 1943 Unknown [id number] 2.16.84 0.1.425916.3.579.2.9 1943 Unknown [id number] 2.16.84 0.1.324474.3.579.2.1258 1943 Unknown [id number] 2.16.84 0.1.095118.3.579.2.125 1943 Unknown [id number] 2.16.84 0.1.394526.3.579.2.1258 1943 Unknown [id number] 2.16.84 0.1.384353.3.579.2.1259 1943 Unknown [id number] 2.16.84 0.1.604642.3.579.2.1259 1943 Unknown [id number] 2.16.84 0.1.565291.3.579.2.1259 1943 Unknown [id number] 2.16.84 0.1.784044.3.579.2.1259 1943 Unknown [id number] 2.16.84 0.1.750453.3.579.2.1259 1943 Unknown [id number] 2.16.84 0.1.603078.3.579.2.1259 1943 Unknown [id number] 2.16.84 0.1.206855.3.579.2.1259 1943 Unknown [id number] 2.16.84 0.1.851729.3.579.2.1259 1943 Unknown [id number] 2.16.84 0.1.710503.3.579.2.125 1943 Unknown [id number] 2.16.84 0.1.353172.3.579.2.1259 1943 Unknown [id number] 2.16.840 .1.171025.3.579.2.1259 Medicare [id number] Unknown [id number] 2.16.8 40.1.730083.3.579.2.531 Unknown [id number] 2.16.8 40.1.600095.3.579.2.531 Unknown [id number] 2.16.8 40.1.351708.3.579.2.531 Unknown [id number] 2.16.8 40.1.258405.3.579.2.531 Unknown [id number] 2.16.8 40.1.283148.3.579.2.531 Unknown [id number] 2.16.8 40.1.600373.3.579.2.531 Social History Date Type Detail Facility Start: 12-07-2021 End: 12-23-2022 Tobacco smoking status Never smoked tobacco (finding) [facility] Start: 03-17-2023 End: 09-20-2023 Sex Assigned At Male [facility] Alyce Tobacco smoking status Never [facility]vin Start: 01-03-2019 End: 12-23-2022 Tobacco use and exposure Smokeless tobacco non-user [facility] Start: 05-06-2022 End: 07-24-2024 Alcohol intake Current drinker of alcohol (finding) [facility] Start: 05-08-2017 History SDOH Alcohol Comment rare [facility] Start: 1945 Sex Assigned At Not on file C [facility] Start: 04-26-2022 End: 09-20-2023 Exposure to SARS-CoV-2 (event) Not sure [facility] Work Phone: Start: 1945 Sex Assigned At Male F [facility] Start: 03-17-2023 End: 09-20-2023 Caffeine use Caffeine use -[facility] 250 DO Work Phone: Comment on above: 2 CANS DAILY OF CAFF IENE FREE OR DIET POP; Start: 09-20-2023 Alcohol intake Ex-drinker (finding) [facility] Work Phone: Start: 09-07-2023 End: 10-05-2023 Alcohol [...] to buy more. Never true [facility] Start: 07-04-2024 End: 07-09-2024 Sex Male (finding) [facility] Goals Date Patient Goal Desired Activity /State Functional Status Date Assessment Result Facility 07-09-2024 Functional status Patient Not at Baseline [facility] Work Phone: 07-04-2024 Functional status Patient at Baseline [facility] Work Phone: 06-22-2024 Functional status 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 Baseline [facility] Work Phone: 06-19-2024 Functional status Patient Not at Baseline [facility] Work Phone: 06-10-2023 Functional status Patient at Baseline [facility] Work Phone: 05-21-2023 Functional status 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 Baseline [facility] Work Phone: 03-29-2022 Functional Status N/A [facility] 02-17-2022 Functional Status No [facility] 02-01-2022 Functional Status N/A [facility] Mental Status Date Assessment Result Facility 07-09-2024 Cognitive function Cognitive Sta tus Patient at Baseline [facility] Work Phone: 07-04-2024 Cognitive function Cognitive Sta tus Patient at Baseline [facility] Work Phone: 06-22-2024 Cognitive function Cognitive Sta tus Patient at Baseline [facility] Work Phone: 06-19-2024 Cognitive function Cognitive Sta tus Patient at Baseline [facility] Work Phone: 06-10-2023 Cognitive function Cognitive Sta tus Patient at Baseline [facility] Work Phone: 05-21-2023 Cognitive function Cognitive Sta tus Patient at Baseline [facility] Work Phone: Clinical Notes 12-07-2021 to 07-24-2024 Leela Bocanegra, DOG POUND ATTENDANT - 07/24/2024 8:30 AM EST Note Date & Type Note Facility 07-24-2024 History of Presen t illness Narrative Images from the original note were not included. Subjective Patient ID: Taurus Garcia is a 78 y.o. male who presents today for a hospital F/U. Was in the hospital for Acute kidney injury. He was given IV fluids and he improved. Hydralazine was discontinued in the hospital. BP has been stable. He is here for his follow up from hospital stay. Back Pain This is a chronic problem. The current episode started more than 1 year ago. The problem occurs intermittently. The problem has been gradually worsening since onset. The pain is present in the lumbar spine, sacro-iliac and gluteal. The quality of the pain is described as aching. The pain radiates to the right knee. The pain is at a severity of 9/10. The pain is severe. The pain is Worse during the day. The symptoms are aggravated by position. Stiffness is present In the morning. Associated symptoms include leg pain and weakness. Risk factors include history of steroid use, obesity and lack of exercise. Treatments tried: Used Cardale in the past for pain management. URI This is a new problem. The current episode started 1 to 4 weeks ago. The problem has been gradually worsening. Associated symptoms include coughing, rhinorrhea, a sore throat and wheezing. He has tried nothing for the symptoms. The treatment provided no relief. Current Outpatient Medications on File Prior to Visit Medication Sig Dispense Refill apixaban (Eliquis) 5 MG tablet TAKE 1 TABLET BY MOUTH TWICE DAILY 180 tablet 3 baclofen (Lioresal) 10 MG tablet TAKE 1 TABLET BY MOUTH WITH FOOD OR MILK 3 TIMES DAILY 270 tablet 1 furosemide (Lasix) 20 MG tablet Take 1 tablet (20 mg) by mouth in the morning. 100 tablet 3 gabapentin (Neurontin) 300 MG capsule Take 1 capsule (300 mg) by mouth in the morning and 1 capsule (300 mg) before bedtime. 180 capsule 3 hydrALAZINE (Apresoline) 50 MG tablet TAKE 1 TABLET BY MOUTH TWICE DAILY WITH FOOD 180 tablet 3 HYDROcodone-acetaminophen (Cardale) 5-325 MG tablet Take 1 tablet by mouth Daily as needed lisinopril 20 MG tablet TAKE 1 TABLET BY MOUTH ONCE DAILY 90 tablet 3 loratadine (Claritin) 10 MG tablet Take 10 mg by mouth in the morning. Multiple Vitamins-Minerals (GNP ONE DAILY MENS 50+ADVANCED PO) take 1 tablet by ORAL route every day with food Oral nebivolol (Bystolic) 10 MG tablet Take 1 tablet (10 mg) by mouth Daily 100 tablet 3 nystatin (Mycostatin) 736564 UNIT/GM powder APPLY TO THE AFFECTED AREA(S) THREE TIMES DAILY FOR 30 DAYS omega-3 (Fish Oil) 1000 MG capsule Take 2 capsules by mouth in the morning. potassium chloride CR (Klor-Con M10) 10 MEQ ER tablet Take 1 tablet (10 mEq) by mouth in the morning and 1 tablet (10 mEq) before bedtime. Take with food.. 180 tablet 3 predniSONE (Deltasone) 10 MG tablet Take 1.5 tablets (15 mg) by mouth Daily 45 tablet 5 pyridostigmine (Mestinon) 60 MG tablet Take 1 tablet (60 mg) by mouth in the morning and 1 tablet (60 mg) at noon and 1 tablet (60 mg) in the evening and 1 tablet (60 mg) before bedtime. 360 tablet 1 simvastatin (Zocor) 40 MG tablet TAKE 1 TABLET BY MOUTH ONCE DAILY IN THE EVENING 90 tablet 3 triamterene-hydrochlorothiazide (Maxzide-25) 37.5-25 MG tablet Take 1 tablet by mouth Daily 100 tablet 3 No current facility-administered medications on file prior to visit. I have reviewed and reconciled the history and medication list with the patient today. No Known Allergies Social History Tobacco Use Smoking status: Never Smokeless tobacco: Never Substance Use Topics Alcohol use: Yes Family History Problem Relation Name Age of Onset Cancer Mother Heart disease Father *denies family hx of MM Heart disease Other Multiple myeloma Neg Hx Past Medical History: Diagnosis Date Acute respiratory failure with hypoxia (CMS/HCC) 11/17/2023 Acute respiratory insufficiency 12/15/2018 d/t Pulmonary Emboli Allergic rhinitis due to other allergen Autoimmune disorder (CMS/HCC) Bilateral pulmonary embolism (CMS/HCC) 2019 Acute Hypoxic Resp. 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 Cervical radiculopathy at C8 05/2017 CTS (carpal tunnel syndrome) 05/2017 Bilateral Essential hypertension, benign (CMS/HCC) Facial droop History of being hospitalized 06/19/2024 Myasthenia Gravis Exacerbation, Weakness, Dyspnea History of being hospitalized 07/09/2024 Generalized Weakness, MATT History of echocardiogram 12/15/2018 EF 60-65%, LVH Hypertension (CMS/HCC) Impaired glucose tolerance test Oral Lumbosacral spondylosis without myelopathy LVH (left ventricular hypertrophy) 12/15/2018 ECHO EF 60-65% Macular edema 2008 /pucker Muscle cramp Myasthenia gravis (CMS/HCC) 12/27/2017 / dyspnea Myasthenic crisis (CMS/HCC) 05/10/2023 Obesity Obstructive sleep apnea (adult) (pediatric) Pulmonary emboli (CMS/HCC) 11/17/2023 Pulmonary embolism (CMS/HCC) 11/2018 Pure hypercholesterolemia (CMS/HCC) Shortness of breath Superficial thrombophlebitis 12/16/2018 Rt Thigh Tremor Troponin I above reference range 11/17/2023 Urothelial carcinoma (CMS/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 hematuria s/p harrell cath trauma and possible SIRS Visit Vitals Smoking Status Never Review of Systems HENT: Positive for rhinorrhea and sore throat. Respiratory: Positive for cough and wheezing. Musculoskeletal: Positive for back pain. Neurological: Positive for weakness. Objective Physical Exam Vitals reviewed. Constitutional: Appearance: Normal appearance. HENT: Head: Normocephalic. Nose: Rhinorrhea present. Mouth/Throat: Mouth: Mucous membranes are moist. Pharynx: Oropharynx is clear. Posterior oropharyngeal erythema present. Eyes: Conjunctiva/sclera: Conjunctivae normal. Cardiovascular: Rate and Rhythm: Normal rate and regular rhythm. Pulmonary: Effort: Pulmonary effort is normal. Breath sounds: Normal breath sounds. Abdominal: Palpations: Abdomen is soft. Skin: General: Skin is warm and dry. Neurological: General: No focal deficit present. Mental Status: He is alert and oriented to person, place, and time. Psychiatric: Mood and Affect: Mood normal. Behavior: Behavior normal. Assessment/Plan Diagnoses and all orders for this visit: Localized edema - Basic metabolic panel; Future Await lab Stage 3a chronic kidney disease (HCC) (CMS/HCC) - Basic metabolic panel; Future Await lab Lumbosacral spondylosis without myelopathy - HYDROcodone-acetaminophen (Cardale) 5-325 MG tablet; Take 1 tablet by mouth Daily as needed for moderate pain or severe pain Discussed risks of this class of medication including the potential for abuse, reliance. Discussed importance of properly storing and disposing of the medication. Reviewed the goals of treatment, including improving pain control and improving functional status. Medication choice and dosage is appropriate for patient's current medical conditions. Reviewed the rules and regulations surrounding prescription of opioids and compliance at length with the patient. Patient will be required to be seen in our office at least every three months for monitoring. At each follow up visit I will reassess the patient's need for the medication. Patient is to have this medication prescribed only through this office. Failure to follow the rules and regulations will result in tapering and discontinuation of medications if applicable. Patient verbalized understanding. OARRS Report was reviewed for this patient. Acute non-recurrent sinusitis of other sinus - doxycycline (Vibra-Tabs) 100 MG tablet; Take 1 tablet (100 mg) by mouth in the morning and 1 tablet (100 mg) before bedtime. Do all this for 10 days. Take with a full glass of water and do not lie down for at least 30 minutes after.. Start the above as directed. Reviewed potential s/e with patient. Encouraged probiotic while on antibiotic. Increase water intake, get plenty of rest. Can take OTC allergy medication for symptomatic relief. Tylenol/Motrin prn. Follow up if no improvement in one week. No follow-ups on file. documented in this encounter [facility] 07-24-2024 Evaluation note Diagnosis Localized edema- Primary Edema Stage 3a chronic kidney disease (HCC) (CMS/HCC) Lumbosacral spondylosis without myelopathy Acute non-recurrent sinusitis of other sinus [id number] [place] [address] [place] [address] CT Scan Report Signed Patient: Taurus Garcia MR#: [id number] : 1945 Acct:[id number] Age/Sex: 78 / M ADM Date: 4 Loc: ER Room: Type: [facility] ER Attending Dr: Copies to: Juli Thomas APRN~ Ordering Provider: Juli Thomas APRN Date of Service: 07/09/24 CT/CT angio head: vision changes ([id number]) CT/CT angio neck: vision changes CTA OF THE HEAD AND NECK WITH CONTRAST COMPARISON: None CLINICAL DATA: Blurred vision, increased weakness and pain all over. Spiral images were obtained through the head and neck following 90 mL Isovue- 370. Sagittal and coronal MIP as well as 3-D volume rendered reconstructions ofthe carotid arteries and mentasta of [place] were reviewed. Stenosis is evaluated using NASCET criteria. This CT exam was performed using one or more following dose reduction techniques: Automated exposure control, adjustment of the mA and/or kV according to patient size, or use of iterative reconstruction technique. There is minor plaque at the aortic arch. The proximal great vessels show no significant abnormalities. There is atherosclerotic plaque at the origin of both vertebral arteries where there could be mild to moderate associated luminalnarrowing. No additional vertebral stenosis or suspected dissection is seen. There is mild plaque at the carotid bifurcation on the right and mild to moderate at the left. There is less than 50% luminal narrowing at the proximal internal carotid artery on both sides. There is suspected left thyroid nodularity. There is reversal of the normal cervical curvature andmultilevel degenerative changes. Limited images through the upper lungs show central and peripheralgranulomatous changes. The distal vertebral, basilar and posterior cerebral arteries show no significant abnormalities. There is mild to moderate carotid siphon plaque withassociated luminal narrowing. The anterior and middle cerebral arteries are patent. No focal stenosis or suspected thrombosis is identified. No aneurysms are seen. The dural venous sinuses are patent CT/CT angio head IMPRESSION: ATHEROSCLEROTIC PLAQUE, WITHOUT CRITICAL STENOSIS OR VASCULAR OCCLUSIVE DISEASE. Impression dictated by: Aide Moe M.D.07/09/2024 4:50 PM Dictation Location: [place] [address] Transcribed By: [facility] 07/09/24 165 Dictated By: Aide Moe MD 07/09/24 1636 Signed By: 07/09/24 1650 [facility] Work Phone: 1(358) 403-806211-19-2024 [facility]iology [facility] [place] [address] [place] [address] CT Scan Report Signed Patient: Taurus Garcia MR#: [id number] : 1945 Acct:[id number] Age/Sex: 78 / M ADM Date: 4 Loc: ER Room: Type: [facility] ER Attending Dr: Copies to: Juli Thomas APRN~ Ordering Provider: Juli Thomas APRN Date of Service: 07/09/24 CT/CT head stroke alert wo con: headache/ vision changes CLINICAL DATA: Increased weakness, left blurred vision and pain all over. CT BRAIN WITHOUT CONTRAST - stroke alert: COMPARISON: MRI 02/28/2018 TECHNIQUE: Contiguous axial unenhanced images were obtained through the brain. This CT exam was performed using one or more following dose reduction techniques: Automated exposure control, adjustmentof the mA and/or kV accordingto patient size, or use of iterative reconstruction technique. FINDINGS: There is some motion artifact. There is mild generalized atrophy. The ventricles are normal in size and position. Mild microvascular changes are noted. There are no additional areas of abnormal attenuation. There is no hemorrhage, mass effect or extra-axial collections. The imaged paranasal sinuses and mastoid air cells are clear. There is vertebral artery and carotid siphon plaque. There is hyperdensity at the wall of the right orbital globe of unknown chronicity or significance. CT/CT head stroke alert wo con IMPRESSION: MILD ATROPHY AND MICROVASCULAR DISEASE. NO DEFINITE ACUTE INTRACRANIAL ABNORMALITY WITHIN LIMITS OF MOTION. FOLLOW-UP IS RECOMMENDED SYMPTOMS WARRANT. COMMENT: Findings were discussed with Juli Thomas at 1628 hours Impression dictated by: Aide Moe M.D.07/09/2024 4:30 PM Dictation Location: [place] [address] Transcribed By: [facility] 07/09/241629 Dictated By: Aide Moe MD 07/09/241623 Signed By: 07/09/24 1630 [facility] Work Phone: 1(260) 343-822011-14-2024 Discharge summary Author Silvestre Grover [facility] Note Date/Time July 04, 2024 7:50am [facility] [address] [place] [address] Discharge Summary Signed Patient: Taurus Garcia MR#: [id number] : 1945 Acct:[id number] Age/Sex: 78 / M Adm Date: 4 Loc: Room: [address] [place] [address]: Silvestre Grover MD Copies to: MD Silvestre Gonsalves II, MD~ Providers Date of Discharge: 07/04/24 Discharging Provider: Silvestre Grover Primary Care Provider: Komal Nguyen Consults: 06/22/24 14:58 Consult to Adult Hospitalist Routine Comment: HTN, CHF Consulting Provider: Community Hospitalist (Adult) Reason For Exam: Medical Management Has Provider Been Notified: Yes Date of Notification: 06/22/24 Time of Notification: 15:04 Consult to Dietitian Routine Comment: Reason for Consult: Other Other Reason: Rehab admit Consult to Occupational Therapy Routine Comment: Physician Instructions: Consult to OT for:: Evaluation and Treat Consult to Physical Therapy Routine Comment: Physician Instructions: Consult to PT for:: Evaluation and Treat Speech Admit Screen Routine Comment: Discharge Diagnosis (1) Acute exacerbation of myasthenia gravis: (2) History of pulmonary embolism: (3) JAMISON on CPAP: (4) Dyspnea: (5) Generalized weakness: (6) Impaired mobility and activities of daily living: Final Diagnosis Final Discharge Diagnosis: As above Summary Hospital Course Hospital course: Mr. Garcia is a 78 year old male with past medical history of myasthenia gravis diagnosed in 2017, under management of Dr. Saunders neurology, paroxysmal A-fib, CKD, hypertension, JAMISON, history of PE, who is well-known to rehab services from prior admissions, presenting to acute inpatient rehab with functional impairments in the setting of MG exacerbation. He was brought to the hospital on 06/19/2024 with worsening generalized weaknessand shortness of breath with activity over the past week or so. According to patient's though, he had been gradually declining over the last several months. Initial ER workup was notable for mild hypokalemia and hypomagnesemia, but otherwise unremarkable. Chest x-ray with chronic interstitial changes without consolidation. Neurology service was consulted. Dr. Packer recommended increasing pyridostigmine temporarily to 90 mg 4 times daily. This is to be decreased backto 60 mg as per home regimen upon rehab admission. Home steroid dose was also uptitrated to 60 mg daily for 5 days. No consideration for IVIG at this time. Pulmonary services consulted and assisted with CPAP management. Patient did undergo an echo which demonstrated an EF of 60 to 65% with mild to moderate LVH. While inpatient, he was also diuresed with furosemide due to suspected fluid overload. Patient was eventually evaluated by PT/OT who recommended acute rehab for strengthening. Rehabilitation course: Tolerated rehabilitation stay without significant complication. Was maintained on prednisone and pyridostigmine. He is ambulatory and able to do stairs. Topical modalities were added to manage his chronic pain, some of which is related to his obesity and relatively sedentary lifestyle. We talked a lot about the importance of maintaining activity at home. Discharged home in stablecondition on July 04. Home health care was arranged. Condition Condition at Discharge: Stable Status at [...] Prescribed necessary DME at discharge when indicated Discharge Plan Discharge Plan Patient Disposition: Home Health Services Additional Instructions: -Code Status: Full Code -Diet: Regular -Activity: ambulate as tolerated with walker -Blessing hose, knee high -Wear Cpap at night -Abdmonial folds/groin: cleanse with Theraworx protect and apply nystatin -Coccyx: apply mepilex for protection. Change Q3D and PRN. -Right upper buttock: cleanse area with vashe, pat area dry, apply skin prep to libertad wound, apply Therohoney gel to wound bed and top with polymen. Secure with opsite. Change Every 3 days and PRN. Code status: Labs (if applicable): Imaging (if applicable): Any other additional instructions (i.e. Harrell care, PICC care, PEG tube feeding directions, abdominal binders, weights, etc.). [facility] (or enter a different Home Health agency and their phone number if applicable) ( ). They will contact you 24-48 hours after discharge to schedule a day/time to meet withyou at your home to establish care. You have been given prescriptions for new and/or needed medications. These prescriptions are for a one-time fill only, with no re-fills. For further re- fills going forward, you will need to address [...] to inform them prior to your appointment. Instructions: Know your Meds Prescriptions: New prednisone 5 mg Tablet 15 mg PO DAILY 30 Days Qty: 90 0RF Saccharomyces boulardii 250 mg Capsule 250 mg PO BID 30 Days Qty: 60 0RF lidocaine [Lidocaine Pain Relief] 4 % Adhesive Patch,Medicated 2 patch topical DAILY 30 Days Qty: 60 0RF furosemide 20 mg Tablet 20 mg PO DAILY.8A Qty: 0 0RF lisinopril 20 mg Tablet 20 mg PO DAILY 30 Days Qty: 30 0RF Continued nebivolol 10 mg tablet 10 mg PO DAILY hydralazine 25 mg Tablet 25 mg PO BID 30 Days Qty: 60 0RF spironolactone 25 mg Tablet 25 mg PO DAILY 30 Days Qty: 30 0RF simvastatin 40 mg tablet 40 mg PO HS Patient Comments: loratadine [Allergy Relief (loratadine)] 10 mg Tablet 10 mg PO DAILY Adults 50 Plus 0.4-300-250 mg-mcg-mcg Tablet 1 tab PO DAILY omega-3 fatty acids-fish oil [Fish Oil] 360-1,200 mg Capsule 1 cap PO BID Eliquis 5 mg Tablet 5 mg PO Q12H Qty: 0 0RF pyridostigmine bromide 60 mg tablet 1 tab PO QID 30 Days Qty: 120 0RF potassium chloride 10 mEq tablet,ER particles/crystals 10 meq PO DAILY 30 Days Qty: 30 0RF gabapentin 300 mg capsule 300 mg PO BID acetaminophen [Tylenol] 325 mg Tablet 650 mg PO Q4H PRN (Reason: Pain Scale 1 - 3 or fever) Qty: 0 0RF ascorbic acid (vitamin C) [Vitamin C] 500 mg Tablet 500 mg PO DAILY Qty: 0 0RF pantoprazole 40 mg Tablet,Delayed Release (Dr/Ec) 40 mg PO BID 10 Days Qty: 0 0RF Preparation H(pe,cb) 0.25-88.44 % Suppository 1 supp [place] BID PRN (Reason: hemorrhoids) Qty: 0 0RF Discontinued furosemide 20 mg tablet 20 mg PO DAILY lisinopril 20 mg tablet 20 mg PO DAILY Patient Comments: prednisone 10 mg tablet 10 mg PO DAILY 30 Days Qty: 30 0RF Patient Comments: prednisone 20 mg Tablet 60 mg PO DAILY 1 Days Qty: 3 0RF potassium chloride [Klor-Con 10] 10 mEq Tablet Extended Release 10 meq PO TID.WITH.MEALS 3 Days Qty: 0 0RF potassium chloride [Klor-Con M20] 20 mEq Tablet,Er Particles/Crystals 20 meq PO DAILY PRN (Reason: Hypokalemia) Qty: 0 0RF Follow Up: [facility] [Outside] Komal Nguyen II, MD [Primary Care Provider] - (Call to schedule follow up appointment with PCP after discharge) Silvestre Grover MD [Active Staff] - (Follow up with rehab physician as needed) Exam Physical Exam Vital Signs: Temp Pulse Resp BP Pulse Ox O2 Del Method 97.4 F L 64 16 133/75 95 CPAP 07/04/24 05:00 07/04/24 05:00 07/04/24 05:00 07/04/24 05:48 07/04/24 05:00 07/04/24 05:00 Narrative: Gen: Awake, oriented, cooperative. HEENT: Atraumatic, PERRL, EOMI Resp: No respiratory distress Cardio: Extremities well perfused MSK: Moves all extremities spontaneously Neuro: CN grossly intact Skin: No swelling, erythema, ecchymosis appreciated Psych: Mood and affect normal Documented By: Silvestre Grover MD 07/04/24 0745 Signed By: <Electronically signed by Silvestre Grover MD> 07/04/24 0750 [facility] Work Phone: [phone]) 479-477011-14-2024 [place] [address] Discharge Summary Signed Patient: Taurus Garcia MR#: [id number] : 1945 Acct:[id number] Age/Sex: 78 / M Adm Date: 4 Loc: Room: [address] [place] [address]: Silvestre Grover MD Copies to: MD Silvestre Gonsalves II, MD~ Providers Date of Discharge: 07/04/24 Discharging Provider: Silvestre Grover Primary Care Provider: Komal Nguyen Consults: 06/22/24 14:58 Consult to Adult Hospitalist Routine Comment: HTN, CHF Consulting Provider: Community Hospitalist (Adult) Reason For Exam: Medical Management Has Provider Been Notified: Yes Date of Notification: 06/22/24 Time of Notification: 15:04 Consult to Dietitian Routine Comment: Reason for Consult: Other Other Reason: Rehab admit Consult to Occupational Therapy Routine Comment: Physician Instructions: Consult to OT for:: Evaluation and Treat Consult to Physical Therapy Routine Comment: Physician Instructions: Consult to PT for:: Evaluation and Treat Speech Admit Screen Routine Comment: Discharge Diagnosis (1) Acute exacerbation of myasthenia gravis: (2) History of pulmonary embolism: (3) JAMISON on CPAP: (4) Dyspnea: (5) Generalized weakness: (6) Impaired mobility and activities of daily living: Final Diagnosis Final Discharge Diagnosis: As above Summary Hospital Course Hospital course: Mr. Garcia is a 78 year old male with past medical history of myasthenia gravis diagnosed in 2017, under management of Dr. Saunders neurology, paroxysmal A-fib, CKD, hypertension, JAMISON, history of PE, who is well-known to rehab services from prior admissions, presenting to acute inpatient rehab with functional impairments in the setting of MG exacerbation. He was brought to the hospital on 06/19/2024 with worsening generalized weaknessand shortness of breath with activity over the past week or so. According to patient's though, he had been gradually declining over the last several months. Initial ER workup was notable for mild hypokalemia and hyp omagnesemia, but otherwise unremarkable. Chest x-ray with chronic interstitial changes without consolidation. Neurology service was consulted. Dr. aPcker recommended increasing pyridostigmine temporarily to 90mg 4 times daily. This is to be decreased backto 60 mg as per home regimen upon rehab admission. Home steroid dose was also uptitrated to 60 mg daily for 5 days. No consideration for IVIG at this time. Pulmonary services consulted and assisted with CPAP management. Patient did undergo an echo which demonstrated an EF of 60 to 65% with mild to moderate LVH. While inpatient, he was also diuresed with furosemide due to suspected fluid overload. Patient was eventually evaluated by PT/OT who recommended acute rehab for strengthening. Rehabilitation course: Tolerated rehabilitation stay without significant complication. Was maintained on prednisone and pyridostigmine. He is ambulatory and able to do stairs. Topical modalities were added to manage his chronic pain, some of which is related to his obesity and relatively sedentary lifestyle. We talked a lot about the importance of maintaining activity at home. Discharged home in stablecondition on July 04. Home health care was arranged. Condition Condition at Discharge: Stable Status at [...] Prescribed necessary DME at discharge when indicated Discharge Plan Discharge Plan Patient Disposition: Home Health Services Additional Instructions: -Code Status: Full Code -Diet: Regular -Activity: ambulate as tolerated with walker -Blessing hose, knee high -Wear Cpap at night -Abdmonial folds/groin: cleanse with Theraworx protect and apply nystatin -Coccyx: apply mepilex for protection. Change Q3D and PRN. -Right upper buttock: cleanse area with vashe, pat area dry, apply skin prep to libertad wound, apply Therohoney gel to wound bed and top with polymen. Secure with opsite. Change Every 3 days and PRN. Code status: Labs (if applicable): Imaging (if applicable): Any other additional instructions (i.e. Harrell care, PICC care, PEG tube feeding directions, abdominal binders, weights, etc.). Your Home Health agency is [facility] (or enter a different Home Health agency and their phone number if applicable) ( ). They will contact you 24-48 hours after discharge to schedule a day/time to meet withyou at your home to establish care. You have been given prescriptions for new and/or needed medications. These prescriptions are fora one-time fill only, with no re-fills. For further re- fills going forward, you will need to address [...] remember to wear a mask to all appointments.If you develop any symptoms (cough, fever/chills, shortness of breath, sore throat, nausea/vomiting, etc.) please contact your provider's office to inform them prior to your appointment. Instructions: Know your Meds Prescriptions: New prednisone 5 mg Tablet 15 mg PO DAILY 30 Days Qty: 90 0RF Saccharomyces boulardii 250 mg Capsule 250 mg PO BID 30 Days Qty: 60 0RF lidocaine [Lidocaine Pain Relief] 4 % Adhesive Patch,Medicated 2 patch topical DAILY 30 Days Qty: 60 0RF furosemide 20 mg Tablet 20 mg PO DAILY.8A Qty: 0 0RF lisinopril 20 mg Tablet 20 mg PO DAILY 30 Days Qty: 30 0RF Continued nebivolol 10 mg tablet 10 mg PO DAILY hydralazine 25 mg Tablet 25 mg PO BID 30 Days Qty: 60 0RF spironolactone 25 mg Tablet 25 mg PO DAILY 30 Days Qty: 30 0RF simvastatin 40 mg tablet 40 mg PO HS Patient Comments: loratadine [Allergy Relief (loratadine)] 10 mg Tablet 10 mg PO DAILY Adults 50 Plus 0.4-300-250 mg-mcg-mcg Tablet 1 tab PO DAILY omega-3 fatty acids-fish oil [Fish Oil] 360-1,200 mg Capsule 1 cap PO BID Eliquis 5 mg Tablet 5 mg PO Q12H Qty: 0 0RF pyridostigmine bromide 60 mg tablet 1 tab PO QID 30 Days Qty: 120 0RF potassium chloride 10 mEq tablet,ER particles/crystals 10 meq PO DAILY 30 Days Qty: 30 0RF gabapentin 300 mg capsule 300 mg PO BID acetaminophen [Tylenol] 325 mg Tablet 650 mg PO Q4H PRN (Reason: Pain Scale 1 - 3 or fever) Qty: 0 0RF ascorbic acid (vitamin C) [Vitamin C] 500 mg Tablet 500 mg PO DAILY Qty: 0 0RF pantoprazole 40 mg Tablet,Delayed Release (Dr/Ec) 40 mg PO BID 10 Days Qty: 0 0RF Preparation H(pe,cb) 0.25-88.44 % Suppository 1 supp [place] BID PRN (Reason: hemorrhoids) Qty: 0 0RF Discontinued furosemide 20 mg tablet 20 mg PO DAILY lisinopril 20 mg tablet 20 mg PO DAILY Patient Comments: prednisone 10 mg tablet 10 mg PO DAILY 30 Days Qty: 30 0RF Patient Comments: prednisone 20 mg Tablet 60 mg PO DAILY 1 Days Qty: 3 0RF potassium chloride [Klor-Con 10] 10 mEq Tablet Extended Release 10 meq PO TID.WITH.MEALS 3 Days Qty: 0 0RF potassium chloride [Klor-Con M20] 20 mEq Tablet,Er Particles/Crystals 20 meq PO DAILY PRN (Reason: Hypokalemia) Qty: 0 0RF Follow Up: [facility] [Outside] Komal Nguyen II, MD [Primary Care Provider] - (Call to schedule follow up appointment with PCP after discharge) Silvestre Grover MD [Active Staff] - (Follow up with rehab physician as needed) Exam Physical Exam Vital Signs: Temp Pulse Resp BP Pulse Ox O2 Del Method 97.4 F L 64 16 133/75 95 CPAP 07/04/24 05:00 07/04/24 05:00 07/04/24 05:00 07/04/24 05:48 07/04/24 05:00 07/04/24 05:00 Narrative: Gen: Awake, oriented, cooperative. HEENT: Atraumatic, PERRL, EOMI Resp: No respiratory distress Cardio: Extremities well perfused MSK: Moves all extremities spontaneously Neuro: CN grossly intact Skin: No swelling, erythema, ecchymosis appreciated Psych: Mood and affect normal Documented By: Silvestre Grover MD 07/04/24 0745 Signed By: 07/04/24 0750 [facility]11-13-2024 Progress note Author Silvestre Grover [facility] Note Date/Time July 03, 2024 1:55pm [facility] [address] [place] [address] Physiatry(Rehab) Progress Note Signed Patient: Taurus Garcia MR#: [id number] : 1945 Acct:[id number] Age/Sex: 78 / M Adm Date: 4 Loc: Room: [address] [place] [address] Type: ADM IN Attending Dr: Silvestre Grover MD Copies to: ~ Date of Service: 07/03/2024 Subjective Subjective Narrative: Mr. Garcia is a 78 year old male with past medical history of myasthenia gravis diagnosed in 2017, under management of Dr. Saunders neurology, paroxysmal A-fib, CKD, hypertension, JAMISON, history of PE, who is well-known to rehab services from prior admissions, presenting to acute inpatient rehab with functional impairments in the setting of MG exacerbation. He was brought to the hospital on 06/19/2024 with worsening generalized weaknessand shortness of breath with activity over the past week or so. According to patient's though, he had been gradually declining over the last several months. Initial ER workup was notable for mild hypokalemia and hypomagnesemia, but otherwise unremarkable. Chest x-ray with chronic interstitial changes without consolidation. Neurology service was consulted. Dr. Packer recommended increasing pyridostigmine temporarily to 90 mg 4 times daily. This is to be decreased backto 60 mg as per home regimen upon rehab admission. Home steroid dose was also uptitrated to 60 mg daily for 5 days. No consideration for IVIG at this time. Pulmonary services consulted and assisted with CPAP management. Patient did undergo an echo which demonstrated an EF of 60 to 65% with mild to moderate LVH. While inpatient, he was also diuresed with furosemide due to suspected fluid overload. Patient was eventually evaluated by PT/OT who recommended acute rehab for strengthening. Interval history: Plan is for home tomorrow. Potassium low this morning, will supplement. Therapy notes reviewed. Review of Systems Review of Systems All other systems reviewed & are negative unless noted below or in HPI Exam Physical Exam Vital Signs: Temp Pulse Resp BP Pulse Ox O2 Del Method 97.9 F 67 20 153/72 H 95 Room Air 07/03/24 12:15 07/03/24 12:15 07/03/24 12:15 07/03/24 12:15 07/03/24 12:15 07/03/24 12:15 Narrative: Gen: Awake, oriented, cooperative. HEENT: Atraumatic, PERRL, EOMI Resp: No respiratory distress Cardio: Extremities well perfused MSK: Moves all extremities spontaneously Neuro: CN grossly intact Skin: No swelling, erythema, ecchymosis appreciated Psych: Mood and affect normal Objective Labs 07/02/24 05:00 07/03/24 05:21 Labs: Laboratory Results - last 24 hr 07/03/24 05:21 PHA Creatinine Clear 75.58 Sodium 143 Potassium 3.2 L Chloride 106 Carbon Dioxide 28.2 Anion Gap 12.0 BUN 21 Creatinine 1.07 Est GFR (CKD-EPI) > 60.0 Glucose 96 Calcium 8.6 Medications and Allergies Allergies and Active Meds: Allergies No Known Allergies Allergy (Verified 06/19/24 09:45) Active Medications Generic Name Dose Route Start Last Admin Trade Name Freq PRN Reason Stop Dose Admin Acetaminophen 650 mg 06/22/24 14:57 06/29/24 08:06 Acetaminophen 325 Mg Tablet PO 06/22/25 14:56 650 mg Q4H PRN Administration Pain Scale 1 - 3 or fever Al Hydrox/Mg Hydrox/Simethicone 30 ml 06/22/24 14:58 Mag Hydrox/Al Hydrox/Simeth 30 Ml Udc PO 06/22/25 14:57 Q4H PRN Indigestion Apixaban 5 mg 06/23/24 09:00 07/03/24 08:38 Apixaban 5 Mg Tablet PO 06/23/25 08:59 5 mg BID DORI Administration Ascorbic Acid 500 mg 06/23/24 09:00 07/03/24 08:37 Ascorbic Acid 500 Mg Tablet PO 06/23/25 08:59 500 mg DAILY DORI Administration Atorvastatin Calcium 20 mg 06/22/24 22:00 07/02/24 21:26 Atorvastatin 20 Mg Tablet PO 06/22/25 21:59 20 mg HS DORI Administration Bisacodyl 10 mg 06/22/24 14:58 Bisacodyl 10 Mg Supp.Rect AZ 06/22/25 14:57 DAILY PRN Constipation Diclofenac Sodium 2 gm 06/27/24 14:00 07/03/24 08:37 Diclofenac Sodium 1% Gel 100 Gm Tube TOPICAL 06/27/25 13:59 2 gm TID DORI Administration Docusate Sodium 100 mg 06/22/24 14:58 Docusate 100 Mg Capsule PO 06/22/25 14:57 BID PRN Constipation Docusate Sodium 283 mg 06/22/24 14:58 Docusate Enema 283 Mg/5 Ml Enema [place] 06/22/25 14:57 DAILY PRN Constipation Fish Oil 1,000 mg 06/22/24 21:00 07/03/24 08:36 [place]-3/Fish Oil 1,000 Mg Capsule PO 06/22/25 20:59 1,000 mg BID DORI Administration Furosemide 20 mg 06/24/24 08:00 07/03/24 08:37 Furosemide 20 Mg Tablet PO 06/24/25 07:59 20 mg DAILY.8A DORI Administration Gabapentin 300 mg 06/22/24 21:00 07/03/24 08:37 Gabapentin 300 Mg Capsule PO 06/22/25 20:59 300 mg BID DORI Administration Hydralazine HCl 25 mg 06/22/24 21:00 07/03/24 08:37 Hydralazine 25 Mg Tablet PO 06/22/25 20:59 25 mg BID DORI Administration Lactulose 30 gm 06/22/24 14:58 Lactulose 20 Gm/30 Ml Udc PO 06/22/25 14:57 DAILY PRN Constipation Lidocaine 2 patch 06/27/24 12:00 07/03/24 08:38 Lidocaine 4% Adh..Patch TOPICAL 06/27/25 11:59 2 patch DAILY DORI Administration Lidocaine 1 patch 06/30/24 21:00 07/03/24 08:38 Lidocaine 4% Adh..Patch TOPICAL 06/30/25 20:59 1 patch DAILY DORI Administration Lisinopril 20 mg 06/23/24 09:00 07/03/24 08:37 Lisinopril 20 Mg Tablet PO 06/23/25 08:59 20 mg DAILY DORI Administration Loperamide HCl 2 mg 07/02/24 13:17 Loperamide 2 Mg Capsule PO 07/02/25 13:16 Q2H PRN Diarrhea Loratadine 10 mg 06/23/24 09:00 07/03/24 08:37 Loratadine 10 Mg Tablet PO 06/23/25 08:59 10 mg DAILY DORI Administration Methocarbamol 1,000 mg 06/30/24 09:50 Methocarbamol 500 Mg Tablet PO 06/30/25 09:49 Q6H PRN Muscle Spasm Multi-Ingredient Cream 1 applic 07/02/24 09:49 Lanolin Alcohol/Mo/W.Pet/[place] (Minerin) 454 Gm Jar TOPICAL 07/02/25 20:59 BID PRN Dry Skin Multivitamins 1 tab 06/23/24 09:00 07/03/24 08:37 Multivitamin 1 Tab Tablet PO 06/23/25 08:59 1 tab DAILY DORI Administration Nebivolol 10 mg 06/23/24 09:00 07/03/24 08:36 Nebivolol 5 Mg Tablet PO 06/23/25 08:59 10 mg DAILY DORI Administration Nystatin 1 applic 06/29/24 13:45 07/03/24 08:37 Nystatin 100,000 Unit/Gram Powder 15 Gm Bottle TOPICAL 06/29/25 13:44 1 applic BID DORI Administration Pantoprazole Sodium 40 mg 06/22/24 21:00 07/03/24 08:37 Pantoprazole 40 Mg Tablet.Dr PO 06/22/25 20:59 40 mg BID DORI Administration Phenyleph/Shark Oil/[place] Butter 1 supp 06/22/24 14:57 Phenylephrine/[place] Butter 6.25 Mg/2211 Mg 1 Supp [place] 06/22/25 14:56 BID PRN hemorrhoids Potassium Chloride 10 meq 06/26/24 09:00 07/03/24 08:37 Potassium Chloride Er 10 Meq Capsule.Er PO 06/26/25 08:59 10 meq DAILY DORI Administration Potassium Chloride 20 meq 07/03/24 13:54 Potassium Chloride Er 20 Meq Tab.Er.Prt PO 07/03/24 13:55 ONCE ONE Prednisone 15 mg 06/24/24 09:00 07/03/24 08:37 Prednisone 5 Mg Tablet PO 06/24/25 08:59 15 mg DAILY DORI Administration Pyridostigmine [place] 60 mg 06/22/24 18:00 07/03/24 08:37 Pyridostigmine [place] 60 Mg Tablet PO 06/22/25 17:59 60 mg QID DORI Administration Saccharomyces Boulardii 250 mg 07/02/24 21:00 07/03/24 08:36 Saccharomyces Boulardii 250 Mg Capsule PO 07/02/25 20:59 250 mg BID DORI Administration Sennosides 17.2 mg 06/23/24 12:00 Sennosides 8.6 Mg Tablet PO 06/23/25 11:59 DAILY@12 PRN If no BM in 2 days Sodium Chloride 0 ml 06/22/24 14:58 Sodium Chloride 0.9 % 10 Ml Syringe IV-PUSH 06/22/25 14:57 PRN PRN Flush Spironolactone 25 mg 06/23/24 09:00 07/03/24 08:37 Spironolactone 25 Mg Tablet PO 06/23/25 08:59 25 mg DAILY DORI Administration Assessment/Plan Assessment/Plan (1) Acute exacerbation of myasthenia gravis: (2) History of pulmonary embolism: (3) JAMISON on CPAP: (4) Dyspnea: (5) Generalized weakness: (6) Impaired mobility and activities of daily living: Plan 78-year-old male with past medical history as above who presents to acute inpatient rehabilitation unit with functional impairments in the setting of myasthenia gravis exacerbation. Initially admitted to ICU. Neurology consultedmanagement. Did not require IVIG this time, only increased doses of prednisone and pyridostigmine. Feeling better already, but still somewhat weak and not at his functional baseline. Does report to have been declining functionally over the last several months, leading mostly sedentary lifestyle. Does have home health therapy in place which according to the patient provides limited benefit. * Plan is for discharge home tomorrow. * Supplement potassium with additional 20 mill equivalents * Reconciled medications. Patient education Pressure ulcer prophylaxis; encourage mobilization, frequent postural changes, pressure-relief techniques DVT prophylaxis Encourage deep breathing exercise incentive spirometry. Monitor [...] equipment to enhance the patient's a functional anabaptist Ensure adequate nutrition and hydration Sleep Discharge planning. Patient was personally seen by me, Dr. Grover, on the day of encounter, reviewed the history and the relevant portions of the chart, including current orders, allied health and health management consultant notes, labs/imaging and performed garcia elements of exam and I formulated the plan of care and facilitated the medical decision making. I completed a substantive portion of this encounter, the medical decision makingportion of this note in its entirety, including Allied health note review, nursing note review, health management consultant note review, discussion with nursing and case management, and more than 50% of my time was spent on counseling and coordination of care, time spent 25 minutes Documented By: Silvestre Grover MD 07/03/24 697 Signed By: <Electronically signed by Silvestre Grover MD> 07/03/24 2763 [facility] Work Phone: 1(406) 967-239511-13-2024 [place] [address] Physiatry(Rehab) Progress Note Signed Patient: Taurus Garcia MR#: [id number] : 1945 Acct:[id number] Age/Sex: 78 / M Adm Date: 4 Loc: 5T Room: 6X7787-0 Type: ADM IN Attending Dr: Silvestre Grover MD Copies to: ~ Date of Service: 07/03/2024 Subjective Subjective Narrative: Mr. Garcia is a 78 year old male with past medical history of myasthenia gravis diagnosed in 2017, under management of Dr. Saunders neurology, paroxysmal A-fib, CKD, hypertension, JAMISON, history of PE, who is well-known to rehab services from prior admissions, presenting to acute inpatient rehab with functional impairments in the setting of MG exacerbation. He was brought to the hospital on 06/19/2024 with worsening generalized weaknessand shortness of breath with activity over the past week or so. According to patient's though, he had been gradually declining over the last several months. Initial ER workup was notable for mild hypokalemia and hyp omagnesemia, but otherwise unremarkable. Chest x-ray with chronic interstitial changes without consolidation. Neurology service was consulted. Dr. Packer recommended increasing pyridostigmine temporarily to 90mg 4 times daily. This is to be decreased backto 60 mg as per home regimen upon rehab admission. Home steroid dose was also uptitrated to 60 mg daily for 5 days. No consideration for IVIG at this time. Pulmonary services consulted and assisted with CPAP management. Patient did undergo an echo which demonstrated an EF of 60 to 65% with mild to moderate LVH. While inpatient, he was also diuresed with furosemide due to suspected fluid overload. Patient was eventually evaluated by PT/OT who recommended acute rehab for strengthening. Interval history: Plan is for home tomorrow. Potassium low this morning, will supplement. Therapy notes reviewed. Review of Systems Review of Systems All other systems reviewed & are negative unless noted below or in HPI Exam Physical Exam Vital Signs: Temp Pulse Resp BP Pulse Ox O2 Del Method 97.9 F 67 20 153/72 H 95 Room Air 07/03/24 12:15 07/03/24 12:15 07/03/24 12:15 07/03/24 12:15 07/03/24 12:15 07/03/24 12:15 Narrative: Gen: Awake, oriented, cooperative. HEENT: Atraumatic, PERRL, EOMI Resp: No respiratory distress Cardio: Extremities well perfused MSK: Moves all extremities spontaneously Neuro: CN grossly intact Skin: No swelling, erythema, ecchymosis appreciated Psych: Mood and affect normal Objective Labs 07/02/24 05:00 07/03/24 05:21 Labs: Laboratory Results - last 24 hr 07/03/24 05:21 PHA Creatinine Clear 75.58 Sodium 143 Potassium 3.2 L Chloride 106 Carbon Dioxide 28.2 Anion Gap 12.0 BUN 21 Creatinine 1.07 Est GFR (CKD-EPI) > 60.0 Glucose 96 Calcium 8.6 Medications and Allergies Allergies and Active Meds: Allergies No Known Allergies Allergy (Verified 06/19/24 09:45) Active Medications Generic Name Dose Route Start Last Admin Trade Name Freq PRN Reason Stop Dose Admin Acetaminophen 650 mg 06/22/24 14:57 06/29/24 08:06 Acetaminophen 325 Mg Tablet PO 06/22/25 14:56 650 mg Q4H PRN Administration Pain Scale 1 - 3 or fever Al Hydrox/Mg Hydrox/Simethicone 30 ml 06/22/24 14:58 Mag Hydrox/Al Hydrox/Simeth 30 Ml Udc PO 06/22/25 14:57 Q4H PRN Indigestion Apixaban 5 mg 06/23/24 09:00 07/03/24 08:38 Apixaban 5 Mg Tablet PO 06/23/25 08:59 5 mg BID DORI Administration Ascorbic Acid 500 mg 06/23/24 09:00 07/03/24 08:37 Ascorbic Acid 500 Mg Tablet PO 06/23/25 08:59 500 mg DAILY DORI Administration Atorvastatin Calcium 20 mg 06/22/24 22:00 07/02/24 21:26 Atorvastatin 20 Mg Tablet PO 06/22/25 21:59 20 mg HS DORI Administration Bisacodyl 10 mg 06/22/24 14:58 Bisacodyl 10 Mg Supp.Rect [place] 06/22/25 14:57 DAILY PRN Constipation Diclofenac Sodium 2 gm 06/27/24 14:00 07/03/24 08:37 Diclofenac Sodium 1% Gel 100 Gm Tube TOPICAL 06/27/25 13:59 2 gm TID DORI Administration Docusate Sodium 100 mg 06/22/24 14:58 Docusate 100 Mg Capsule PO 06/22/25 14:57 BID PRN Constipation Docusate Sodium 283 mg 06/22/24 14:58 Docusate Enema 283 Mg/5 Ml Enema [place] 06/22/25 14:57 DAILY PRN Constipation Fish Oil 1,000 mg 06/22/24 21:00 07/03/24 08:36 Shaniko-3/Fish Oil 1,000 Mg Capsule PO 06/22/25 20:59 1,000 mg BID DORI Administration Furosemide 20 mg 06/24/24 08:00 07/03/24 08:37 Furosemide 20 Mg Tablet PO 06/24/25 07:59 20 mg DAILY.8A DORI Administration Gabapentin 300 mg 06/22/24 21:00 07/03/24 08:37 Gabapentin 300 Mg Capsule PO 06/22/25 20:59 300 mg BID DORI Administration Hydralazine HCl 25 mg 06/22/24 21:00 07/03/24 08:37 Hydralazine 25 Mg Tablet PO 06/22/25 20:59 25 mg BID DORI Administration Lactulose 30 gm 06/22/24 14:58 Lactulose 20 Gm/30 Ml Udc PO 06/22/25 14:57 DAILY PRN Constipation Lidocaine 2 patch 06/27/24 12:00 07/03/24 08:38 Lidocaine 4% Adh..Patch TOPICAL 06/27/25 11:59 2 patch DAILY DORI Administration Lidocaine 1 patch 06/30/24 21:00 07/03/24 08:38 Lidocaine 4% Adh..Patch TOPICAL 06/30/25 20:59 1 patch DAILY DORI Administration Lisinopril 20 mg 06/23/24 09:00 07/03/24 08:37 Lisinopril 20 Mg Tablet PO 06/23/25 08:59 20 mg DAILY DORI Administration Loperamide HCl 2 mg 07/02/24 13:17 Loperamide 2 Mg Capsule PO 07/02/25 13:16 Q2H PRN Diarrhea Loratadine 10 mg 06/23/24 09:00 07/03/24 08:37 Loratadine 10 Mg Tablet PO 06/23/25 08:59 10 mg DAILY DORI Administration Methocarbamol 1,000 mg 06/30/24 09:50 Methocarbamol 500 Mg Tablet PO 06/30/25 09:49 Q6H PRN Muscle Spasm Multi-Ingredient Cream 1 applic 07/02/24 09:49 Lanolin Alcohol/Mo/W.Pet/[place] (Minerin) 454 Gm Jar TOPICAL 07/02/25 20:59 BID PRN Dry Skin Multivitamins 1 tab 06/23/24 09:00 07/03/24 08:37 Multivitamin 1 Tab Tablet PO 06/23/25 08:59 1 tab DAILY DORI Administration Nebivolol 10 mg 06/23/24 09:00 07/03/24 08:36 Nebivolol 5 Mg Tablet PO 06/23/25 08:59 10 mg DAILY DORI Administration Nystatin 1 applic 06/29/24 13:45 07/03/24 08:37 Nystatin 100,000 Unit/Gram Powder 15 Gm Bottle TOPICAL 06/29/25 13:44 1 applic BID DORI Administration Pantoprazole Sodium 40 mg 06/22/24 21:00 07/03/24 08:37 Pantoprazole 40 Mg Tablet.Dr PO 06/22/25 20:59 40 mg BID DORI Administration Phenyleph/Shark Oil/[place] Butter 1 supp 06/22/24 14:57 Phenylephrine/[place] Butter 6.25 Mg/2211 Mg 1 Supp [place] 06/22/25 14:56 BID PRN hemorrhoids Potassium Chloride 10 meq 06/26/24 09:00 07/03/24 08:37 Potassium Chloride Er 10 Meq Capsule.Er PO 06/26/25 08:59 10 meq DAILY DORI Administration Potassium Chloride 20 meq 07/03/24 13:54 Potassium Chloride Er 20 Meq Tab.Er.Prt PO 07/03/24 13:55 ONCE ONE Prednisone 15 mg 06/24/24 09:00 07/03/24 08:37 Prednisone 5 Mg Tablet PO 06/24/25 08:59 15 mg DAILY DORI Administration Pyridostigmine [place] 60 mg 06/22/24 18:00 07/03/24 08:37 Pyridostigmine [place] 60 Mg Tablet PO 06/22/25 17:59 60 mg QID DORI Administration Saccharomyces Boulardii 250 mg 07/02/24 21:00 07/03/24 08:36 Saccharomyces Boulardii 250 Mg Capsule PO 07/02/25 20:59 250 mg BID DORI Administration Sennosides 17.2 mg 06/23/24 12:00 Sennosides 8.6 Mg Tablet PO 06/23/25 11:59 DAILY@12 PRN If no BM in 2 days Sodium Chloride 0 ml 06/22/24 14:58 Sodium Chloride 0.9 % 10 Ml Syringe IV-PUSH 06/22/25 14:57 PRN PRN Flush Spironolactone 25 mg 06/23/24 09:00 07/03/24 08:37 Spironolactone 25 Mg Tablet PO 06/23/25 08:59 25 mg DAILY DORI Administration Assessment/Plan Assessment/Plan (1) Acute exacerbation of myasthenia gravis: (2) History of pulmonary embolism: (3) JAMISON on CPAP: (4) Dyspnea: (5) Generalized weakness: (6) Impaired mobility and activities of daily living: Plan 78-year-old male with past medical history as above who presents to acute inpatient rehabilitation unit with functional impairments in the setting of myasthenia gravis exacerbation. Initially admitted to ICU. Neurology consultedmanagement. Did not require IVIG this time, only increased doses of prednisone and pyridostigmine. Feeling better already, but still somewhat weak and not at his functional baseline. Does report to have been declining functionally over the last several months, leading mostly sedentary lifestyle. Does have home health therapy in place which according to the patient provides limited benefit. * Plan is for discharge home tomorrow. * Supplement potassium with additional 20 mill equivalents * Reconciled medications. Patient education Pressure ulcer prophylaxis; encourage mobilization, frequent postural changes, pressure-relief techniques DVT prophylaxis Encourage deep breathing exercise incentive spirometry. Monitor [...] equipment to enhance the patient's a functional anabaptist Ensure adequate nutrition and hydration Sleep Discharge planning. Patient was personally seen by me, Dr. Grover, on the day of encounter, reviewed the history and therelevant portions of the chart, including current orders, allied health and health management consultant notes, labs/imaging and performed garcia elements of exam and I formulated the plan of care and facilitated the medical decision making. I completed a substantive portion of this encounter, the medical decision makingportion of this note in its entirety, including Allied health note review, nursing note review, health management consultant note review,discussion with nursing and case management, and more than 50% of my time was spent on counseling and coordination of care, time spent 25 minutes Documented By: Silvestre Grover MD 07/03/24 1352 Signed By: 07/03/24 3081 [facility]11-11-2024 Progress note Author Silvestre Grover [facility] Note Date/Time July 01, 2024 1:54pm [facility] [address] [place] [address] Physiatry(Rehab) Progress Note Signed Patient: Taurus Garcia MR#: [id number] : 1945 Acct:[id number] Age/Sex: 78 / M Adm Date: 4 Loc: 5T Room: 7X5982-0 Type: ADM IN Attending Dr: Silvestre Grover MD Copies to: ~ Date of Service: 07/01/2024 Subjective Subjective Narrative: Mr. Garcia is a 78 year old male with past medical history of myasthenia gravis diagnosed in 2017, under management of Dr. Saunders neurology, paroxysmal A-fib, CKD, hypertension, JAMISON, history of PE, who is well-known to rehab services from prior admissions, presenting to acute inpatient rehab with functional impairments in the setting of MG exacerbation. He was brought to the hospital on 06/19/2024 with worsening generalized weaknessand shortness of breath with activity over the past week or so. According to patient's though, he had been gradually declining over the last several months. Initial ER workup was notable for mild hypokalemia and hypomagnesemia, but otherwise unremarkable. Chest x-ray with chronic interstitial changes without consolidation. Neurology service was consulted. Dr. Packer recommended increasing pyridostigmine temporarily to 90 mg 4 times daily. This is to be decreased backto 60 mg as per home regimen upon rehab admission. Home steroid dose was also uptitrated to 60 mg daily for 5 days. No consideration for IVIG at this time. Pulmonary services consulted and assisted with CPAP management. Patient did undergo an echo which demonstrated an EF of 60 to 65% with mild to moderate LVH. While inpatient, he was also diuresed with furosemide due to suspected fluid overload. Patient was eventually evaluated by PT/OT who recommended acute rehab for strengthening. Interval history: Complained of some increased pain over the weekend. This has improved a little with addition of Robaxin. Otherwise progressing well. Recheck labs tomorrow. Review of Systems Review of Systems All other systems reviewed & are negative unless noted below or in HPI Exam Physical Exam Vital Signs: Temp Pulse Resp BP Pulse Ox O2 Del Method 98.3 F 65 20 155/61 H 94 L Room Air 07/01/24 04:43 07/01/24 08:05 07/01/24 08:05 07/01/24 08:05 07/01/24 08:05 07/01/24 11:15 Narrative: Gen: Awake, oriented, cooperative. HEENT: Atraumatic, PERRL, EOMI Resp: No respiratory distress Cardio: Extremities well perfused MSK: Moves all extremities spontaneously Neuro: CN grossly intact Skin: No swelling, erythema, ecchymosis appreciated Psych: Mood and affect normal Objective Labs 06/23/24 04:55 06/26/24 05:57 Medications and Allergies Allergies and Active Meds: Allergies No Known Allergies Allergy (Verified 06/19/24 09:45) Active Medications Generic Name Dose Route Start Last Admin Trade Name Freq PRN Reason Stop Dose Admin Acetaminophen 650 mg 06/22/24 14:57 06/29/24 08:06 Acetaminophen 325 Mg Tablet PO 06/22/25 14:56 650 mg Q4H PRN Administration Pain Scale 1 - 3 or fever Al Hydrox/Mg Hydrox/Simethicone 30 ml 06/22/24 14:58 Mag Hydrox/Al Hydrox/Simeth 30 Ml Udc PO 06/22/25 14:57 Q4H PRN Indigestion Apixaban 5 mg 06/23/24 09:00 07/01/24 07:59 Apixaban 5 Mg Tablet PO 06/23/25 08:59 5 mg BID DORI Administration Ascorbic Acid 500 mg 06/23/24 09:00 07/01/24 07:59 Ascorbic Acid 500 Mg Tablet PO 06/23/25 08:59 500 mg DAILY DORI Administration Atorvastatin Calcium 20 mg 06/22/24 22:00 06/30/24 21:36 Atorvastatin 20 Mg Tablet PO 06/22/25 21:59 20 mg HS DORI Administration Bisacodyl 10 mg 06/22/24 14:58 Bisacodyl 10 Mg Supp.Rect [place] 06/22/25 14:57 DAILY PRN Constipation Diclofenac Sodium 2 gm 06/27/24 14:00 07/01/24 08:00 Diclofenac Sodium 1% Gel 100 Gm Tube TOPICAL 06/27/25 13:59 2 gm TID DORI Administration Docusate Sodium 100 mg 06/22/24 14:58 Docusate 100 Mg Capsule PO 06/22/25 14:57 BID PRN Constipation Docusate Sodium 283 mg 06/22/24 14:58 Docusate Enema 283 Mg/5 Ml Enema [place] 06/22/25 14:57 DAILY PRN Constipation Fish Oil 1,000 mg 06/22/24 21:00 07/01/24 07:59 Shaniko-3/Fish Oil 1,000 Mg Capsule PO 06/22/25 20:59 1,000 mg BID DORI Administration Furosemide 20 mg 06/24/24 08:00 07/01/24 07:58 Furosemide 20 Mg Tablet PO 06/24/25 07:59 20 mg DAILY.8A DORI Administration Gabapentin 300 mg 06/22/24 21:00 07/01/24 07:59 Gabapentin 300 Mg Capsule PO 06/22/25 20:59 300 mg BID DORI Administration Hydralazine HCl 25 mg 06/22/24 21:00 07/01/24 07:59 Hydralazine 25 Mg Tablet PO 06/22/25 20:59 25 mg BID DORI Administration Lactulose 30 gm 06/22/24 14:58 Lactulose 20 Gm/30 Ml Udc PO 06/22/25 14:57 DAILY PRN Constipation Lidocaine 2 patch 06/27/24 12:00 07/01/24 08:00 Lidocaine 4% Adh..Patch TOPICAL 06/27/25 11:59 2 patch DAILY DORI Administration Lidocaine 1 patch 06/30/24 21:00 07/01/24 08:00 Lidocaine 4% Adh..Patch TOPICAL 06/30/25 20:59 1 patch DAILY DORI Administration Lisinopril 20 mg 06/23/24 09:00 07/01/24 07:59 Lisinopril 20 Mg Tablet PO 06/23/25 08:59 20 mg DAILY DORI Administration Loratadine 10 mg 06/23/24 09:00 07/01/24 07:59 Loratadine 10 Mg Tablet PO 06/23/25 08:59 10 mg DAILY DORI Administration Methocarbamol 1,000 mg 06/30/24 09:50 Methocarbamol 500 Mg Tablet PO 06/30/25 09:49 Q6H PRN Muscle Spasm Multivitamins 1 tab 06/23/24 09:00 07/01/24 08:00 Multivitamin 1 Tab Tablet PO 06/23/25 08:59 1 tab DAILY DORI Administration Nebivolol 10 mg 06/23/24 09:00 07/01/24 08:00 Nebivolol 5 Mg Tablet PO 06/23/25 08:59 10 mg DAILY DORI Administration Nystatin 1 applic 06/29/24 13:45 07/01/24 08:01 Nystatin 100,000 Unit/Gram Powder 15 Gm Bottle TOPICAL 06/29/25 13:44 1 applic BID DORI Administration Pantoprazole Sodium 40 mg 06/22/24 21:00 07/01/24 07:59 Pantoprazole 40 Mg Tablet.Dr PO 06/22/25 20:59 40 mg BID DORI Administration Phenyleph/Shark Oil/[place] Butter 1 supp 06/22/24 14:57 Phenylephrine/[place] Butter 6.25 Mg/2211 Mg 1 Supp [place] 06/22/25 14:56 BID PRN hemorrhoids Potassium Chloride 20 meq 06/22/24 14:57 Potassium Chloride Er 20 Meq Tab.Er.Prt PO 06/22/25 14:56 DAILY PRN Hypokalemia Potassium Chloride 10 meq 06/26/24 09:00 07/01/24 07:59 Potassium Chloride Er 10 Meq Capsule.Er PO 06/26/25 08:59 10 meq DAILY DORI Administration Prednisone 15 mg 06/24/24 09:00 07/01/24 07:59 Prednisone 5 Mg Tablet PO 06/24/25 08:59 15 mg DAILY DORI Administration Pyridostigmine [place] 60 mg 06/22/24 18:00 07/01/24 07:59 Pyridostigmine [place] 60 Mg Tablet PO 06/22/25 17:59 60 mg QID DORI Administration Sennosides 17.2 mg 06/23/24 12:00 Sennosides 8.6 Mg Tablet PO 06/23/25 11:59 DAILY@12 PRN If no BM in 2 days Sodium Chloride 0 ml 06/22/24 14:58 Sodium Chloride 0.9 % 10 Ml Syringe IV-PUSH 06/22/25 14:57 PRN PRN Flush Spironolactone 25 mg 06/23/24 09:00 07/01/24 07:59 Spironolactone 25 Mg Tablet PO 06/23/25 08:59 25 mg DAILY DORI Administration Assessment/Plan Assessment/Plan (1) Acute exacerbation of myasthenia gravis: (2) History of pulmonary embolism: (3) JAMISON on CPAP: (4) Dyspnea: (5) Generalized weakness: (6) Impaired mobility and activities of daily living: Plan 78-year-old male with past medical history as above who presents to acute inpatient rehabilitation unit with functional impairments in the setting of myasthenia gravis exacerbation. Initially admitted to ICU. Neurology consultedmanagement. Did not require IVIG this time, only increased doses of prednisone and pyridostigmine. Feeling better already, but still somewhat weak and not at his functional baseline. Does report to have been declining functionally over the last several months, leading mostly sedentary lifestyle. Does have home health therapy in place which according to the patient provides limited benefit. * Continue current medications as ordered. Muscle relaxer seems to be effective. He is ambulatory and able to do some stairs. Plan is for home on . Patient education Pressure ulcer prophylaxis; encourage mobilization, frequent postural changes, pressure-relief techniques DVT prophylaxis Encourage deep breathing exercise incentive spirometry. Monitor [...] equipment to enhance the patient's a functional anabaptist Ensure adequate nutrition and hydration Sleep Discharge planning. Patient was personally seen by me, Dr. Grover, on the day of encounter, reviewed the history and the relevant portions of the chart, including current orders, allied health and health management consultant notes, labs/imaging and performed garcia elements of exam and I formulated the plan of care and facilitated the medical decision making. I completed a substantive portion of this encounter, the medical decision makingportion of this note in its entirety, including Allied health note review, nursing note review, health management consultant note review, discussion with nursing and case management, and more than 50% of my time was spent on counseling and coordination of care, time spent 25 minutes Documented By: Silvestre Grover MD 07/01/24 1359 Signed By: <Electronically signed by Silvestre Grover MD> 07/01/24 1354 [facility] Work Phone: [phone]) 443-994911-11-2024 [place] [address] Physiatry(Rehab) Progress Note Signed Patient: Taurus Garcia MR#: [id number] : 1945 Acct:[id number] Age/Sex: 78 / M Adm Date: 4 Loc: Room: [address] [place] [address] Type: ADM IN Attending Dr: Silvestre Grover MD Copies to: ~ Date of Service: 07/01/2024 Subjective Subjective Narrative: Mr. Garcia is a 78 year old male with past medical history of myasthenia gravis diagnosed in 2017, under management of Dr. Saunders neurology, paroxysmal A-fib, CKD, hypertension, JAMISON, history of PE, who is well-known to rehab services from prior admissions, presenting to acute inpatient rehab with functional impairments in the setting of MG exacerbation. He was brought to the hospital on 06/19/2024 with worsening generalized weaknessand shortness of breath with activity over the past week or so. According to patient's though, he had been gradually declining over the last several months. Initial ER workup was notable for mild hypokalemia and hyp omagnesemia, but otherwise unremarkable. Chest x-ray with chronic interstitial changes without consolidation. Neurology service was consulted. Dr. Packer recommended increasing pyridostigmine temporarily to 90mg 4 times daily. This is to be decreased backto 60 mg as per home regimen upon rehab admission. Home steroid dose was also uptitrated to 60 mg daily for 5 days. No consideration for IVIG at this time. Pulmonary services consulted and assisted with CPAP management. Patient did undergo an echo which demonstrated an EF of 60 to 65% with mild to moderate LVH. While inpatient, he was also diuresed with furosemide due to suspected fluid overload. Patient was eventually evaluated by PT/OT who recommended acute rehab for strengthening. Interval history: Complained of some increased pain over the weekend. This has improved a little with addition of Robaxin. Otherwise progressing well. Recheck labs tomorrow. Review of Systems Review of Systems All other systems reviewed & are negative unless noted below or in HPI Exam Physical Exam Vital Signs: Temp Pulse Resp BP Pulse Ox O2 Del Method 98.3 F 65 20 155/61 H 94 L Room Air 07/01/24 04:43 07/01/24 08:05 07/01/24 08:05 07/01/24 08:05 07/01/24 08:05 07/01/24 11:15 Narrative: Gen: Awake, oriented, cooperative. HEENT: Atraumatic, PERRL, EOMI Resp: No respiratory distress Cardio: Extremities well perfused MSK: Moves all extremities spontaneously Neuro: CN grossly intact Skin: No swelling, erythema, ecchymosis appreciated Psych: Mood and affect normal Objective Labs 06/23/24 04:55 06/26/24 05:57 Medications and Allergies Allergies and Active Meds: Allergies No Known Allergies Allergy (Verified 06/19/24 09:45) Active Medications Generic Name Dose Route Start Last Admin Trade Name Jana PRN Reason Stop Dose Admin Acetaminophen 650 mg 06/22/24 14:57 06/29/24 08:06 Acetaminophen 325 Mg Tablet PO 06/22/25 14:56 650 mg Q4H PRN Administration Pain Scale 1 - 3 or fever Al Hydrox/Mg Hydrox/Simethicone 30 ml 06/22/24 14:58 Mag Hydrox/Al Hydrox/Simeth 30 Ml Udc PO 06/22/25 14:57 Q4H PRN Indigestion Apixaban 5 mg 06/23/24 09:00 07/01/24 07:59 Apixaban 5 Mg Tablet PO 06/23/25 08:59 5 mg BID DORI Administration Ascorbic Acid 500 mg 06/23/24 09:00 07/01/24 07:59 Ascorbic Acid 500 Mg Tablet PO 06/23/25 08:59 500 mg DAILY DORI Administration Atorvastatin Calcium 20 mg 06/22/24 22:00 06/30/24 21:36 Atorvastatin 20 Mg Tablet PO 06/22/25 21:59 20 mg HS DORI Administration Bisacodyl 10 mg 06/22/24 14:58 Bisacodyl 10 Mg Supp.Rect [place] 06/22/25 14:57 DAILY PRN Constipation Diclofenac Sodium 2 gm 06/27/24 14:00 07/01/24 08:00 Diclofenac Sodium 1% Gel 100 Gm Tube TOPICAL 06/27/25 13:59 2 gm TID DORI Administration Docusate Sodium 100 mg 06/22/24 14:58 Docusate 100 Mg Capsule PO 06/22/25 14:57 BID PRN Constipation Docusate Sodium 283 mg 06/22/24 14:58 Docusate Enema 283 Mg/5 Ml Enema [place] 06/22/25 14:57 DAILY PRN Constipation Fish Oil 1,000 mg 06/22/24 21:00 07/01/24 07:59 Shaniko-3/Fish Oil 1,000 Mg Capsule PO 06/22/25 20:59 1,000 mg BID DORI Administration Furosemide 20 mg 06/24/24 08:00 07/01/24 07:58 Furosemide 20 Mg Tablet PO 06/24/25 07:59 20 mg DAILY.8A DORI Administration Gabapentin 300 mg 06/22/24 21:00 07/01/24 07:59 Gabapentin 300 Mg Capsule PO 06/22/25 20:59 300 mg BID DORI Administration Hydralazine HCl 25 mg 06/22/24 21:00 07/01/24 07:59 Hydralazine 25 Mg Tablet PO 06/22/25 20:59 25 mg BID DORI Administration Lactulose 30 gm 06/22/24 14:58 Lactulose 20 Gm/30 Ml Udc PO 06/22/25 14:57 DAILY PRN Constipation Lidocaine 2 patch 06/27/24 12:00 07/01/24 08:00 Lidocaine 4% Adh..Patch TOPICAL 06/27/25 11:59 2 patch DAILY DORI Administration Lidocaine 1 patch 06/30/24 21:00 07/01/24 08:00 Lidocaine 4% Adh..Patch TOPICAL 06/30/25 20:59 1 patch DAILY DORI Administration Lisinopril 20 mg 06/23/24 09:00 07/01/24 07:59 Lisinopril 20 Mg Tablet PO 06/23/25 08:59 20 mg DAILY DORI Administration Loratadine 10 mg 06/23/24 09:00 07/01/24 07:59 Loratadine 10 Mg Tablet PO 06/23/25 08:59 10 mg DAILY DORI Administration Methocarbamol 1,000 mg 06/30/24 09:50 Methocarbamol 500 Mg Tablet PO 06/30/25 09:49 Q6H PRN Muscle Spasm Multivitamins 1 tab 06/23/24 09:00 07/01/24 08:00 Multivitamin 1 Tab Tablet PO 06/23/25 08:59 1 tab DAILY DORI Administration Nebivolol 10 mg 06/23/24 09:00 07/01/24 08:00 Nebivolol 5 Mg Tablet PO 06/23/25 08:59 10 mg DAILY DORI Administration Nystatin 1 applic 06/29/24 13:45 07/01/24 08:01 Nystatin 100,000 Unit/Gram Powder 15 Gm Bottle TOPICAL 06/29/25 13:44 1 applic BID DORI Administration Pantoprazole Sodium 40 mg 06/22/24 21:00 07/01/24 07:59 Pantoprazole 40 Mg Tablet.Dr PO 06/22/25 20:59 40 mg BID DORI Administration Phenyleph/Shark Oil/[place] Butter 1 supp 06/22/24 14:57 Phenylephrine/[place] Butter 6.25 Mg/2211 Mg 1 Supp [place] 06/22/25 14:56 BID PRN hemorrhoids Potassium Chloride 20 meq 06/22/24 14:57 Potassium Chloride Er 20 Meq Tab.Er.Prt PO 06/22/25 14:56 DAILY PRN Hypokalemia Potassium Chloride 10 meq 06/26/24 09:00 07/01/24 07:59 Potassium Chloride Er 10 Meq Capsule.Er PO 06/26/25 08:59 10 meq DAILY DORI Administration Prednisone 15 mg 06/24/24 09:00 07/01/24 07:59 Prednisone 5 Mg Tablet PO 06/24/25 08:59 15 mg DAILY DORI Administration Pyridostigmine [place] 60 mg 06/22/24 18:00 07/01/24 07:59 Pyridostigmine [place] 60 Mg Tablet PO 06/22/25 17:59 60 mg QID DORI Administration Sennosides 17.2 mg 06/23/24 12:00 Sennosides 8.6 Mg Tablet PO 06/23/25 11:59 DAILY@12 PRN If no BM in 2 days Sodium Chloride 0 ml 06/22/24 14:58 Sodium Chloride 0.9 % 10 Ml Syringe IV-PUSH 06/22/25 14:57 PRN PRN Flush Spironolactone 25 mg 06/23/24 09:00 07/01/24 07:59 Spironolactone 25 Mg Tablet PO 06/23/25 08:59 25 mg DAILY DORI Administration Assessment/Plan Assessment/Plan (1) Acute exacerbation of myasthenia gravis: (2) History of pulmonary embolism: (3) JAMISON on CPAP: (4) Dyspnea: (5) Generalized weakness: (6) Impaired mobility and activities of daily living: Plan 78-year-old male with past medical history as above who presents to acute inpatient rehabilitation unit with functional impairments in the setting of myasthenia gravis exacerbation. Initially admitted to ICU. Neurology consultedmanagement. Did not require IVIG this time, only increased doses of prednisone and pyridostigmine. Feeling better already, but still somewhat weak and not at his functional baseline. Does report to have been declining functionally over the last several months, leading mostly sedentary lifestyle. Does have home health therapy in place which according to the patient provides limited benefit. * Continue current medications as ordered. Muscle relaxer seems to be effective. He is ambulatory and able to do some stairs. Plan is for home on . Patient education Pressure ulcer prophylaxis; encourage mobilization, frequent postural changes, pressure-relief techniques DVT prophylaxis Encourage deep breathing exercise incentive spirometry. Monitor [...] equipment to enhance the patient's a functional anabaptist Ensure adequate nutrition and hydration Sleep Discharge planning. Patient was personally seen by me, Dr. Grover, on the day of encounter, reviewed the history and therelevant portions of the chart, including current orders, allied health and health management consultant notes, labs/imaging and performed garcia elements of exam and I formulated the plan of care and facilitated the medical decision making. I completed a substantive portion of this encounter, the medical decision makingportion of this note in its entirety, including Allied health note review, nursing note review, health management consultant note review,discussion with nursing and case management, and more than 50% of my time was spent on counseling and coordination of care, time spent 25 minutes Documented By: Silvestre Grover MD 07/01/24 1353 Signed By: 07/01/24 1354 [facility]11-10-2024 Progress note Author Fidel Bennett [facility] Note Date/Time June 30, 2024 9:22pm [facility] [address] [place] [address] Physiatry(Rehab) Progress Note Signed Patient: Taurus Garcia MR#: [id number] : 1945 Acct:[id number] Age/Sex: 78 / M Adm Date: 4 Loc: Room: 9G7831-2 Type: ADM IN Attending Dr: Silvestre Grover MD Copies to: ~ Date of Service: 06/30/2024 Subjective Subjective Narrative: Mr. Garcia is a 78 year old male with past medical history of myasthenia gravis diagnosed in 2017, under management of Dr. Saunders neurology, paroxysmal A-fib, CKD, hypertension, JAMISON, history of PE, who is well-known to rehab services from prior admissions, presenting to acute inpatient rehab with functional impairments in the setting of MG exacerbation. He was brought to the hospital on 06/19/2024 with worsening generalized weaknessand shortness of breath with activity over the past week or so. According to patient's though, he had been gradually declining over the last several months. Initial ER workup was notable for mild hypokalemia and hypomagnesemia, but otherwise unremarkable. Chest x-ray with chronic interstitial changes without consolidation. Neurology service was consulted. Dr. Packer recommended increasing pyridostigmine temporarily to 90 mg 4 times daily. This is to be decreased backto 60 mg as per home regimen upon rehab admission. Home steroid dose was also uptitrated to 60 mg daily for 5 days. No consideration for IVIG at this time. Pulmonary services consulted and assisted with CPAP management. Patient did undergo an echo which demonstrated an EF of 60 to 65% with mild to moderate LVH. While inpatient, he was also diuresed with furosemide due to suspected fluid overload. Patient was eventually evaluated by PT/OT who recommended acute rehab for strengthening. Interval history: Patient seen while working with therapy. He notes some increased pain particularly in the morning which improves later in the day. No other issues Review of Systems Review of Systems All other systems reviewed & are negative unless noted below or in HPI Exam Physical Exam Vital Signs: Temp Pulse Resp BP Pulse Ox O2 Del Method 98.7 F 69 18 113/68 94 L Room Air 06/30/24 16:02 06/30/24 16:02 06/30/24 16:02 06/30/24 16:02 06/30/24 16:02 06/30/24 16:03 Narrative: Gen: Awake, oriented, cooperative. HEENT: Atraumatic, PERRL, EOMI Resp: No respiratory distress Cardio: Extremities well perfused MSK: Moves all extremities spontaneously Neuro: CN grossly intact Skin: No swelling, erythema, ecchymosis appreciated Psych: Mood and affect normal Objective Labs 06/23/24 04:55 06/26/24 05:57 Medications and Allergies Allergies and Active Meds: Allergies No Known Allergies Allergy (Verified 06/19/24 09:45) Active Medications Generic Name Dose Route Start Last Admin Trade Name Freq PRN Reason Stop Dose Admin Acetaminophen 650 mg 06/22/24 14:57 06/29/24 08:06 Acetaminophen 325 Mg Tablet PO 06/22/25 14:56 650 mg Q4H PRN Administration Pain Scale 1 - 3 or fever Al Hydrox/Mg Hydrox/Simethicone 30 ml 06/22/24 14:58 Mag Hydrox/Al Hydrox/Simeth 30 Ml Udc PO 06/22/25 14:57 Q4H PRN Indigestion Apixaban 5 mg 06/23/24 09:00 06/30/24 08:50 Apixaban 5 Mg Tablet PO 06/23/25 08:59 5 mg BID DORI Administration Ascorbic Acid 500 mg 06/23/24 09:00 06/30/24 08:50 Ascorbic Acid 500 Mg Tablet PO 06/23/25 08:59 500 mg DAILY DORI Administration Atorvastatin Calcium 20 mg 06/22/24 22:00 06/29/24 21:37 Atorvastatin 20 Mg Tablet PO 06/22/25 21:59 20 mg HS DORI Administration Bisacodyl 10 mg 06/22/24 14:58 Bisacodyl 10 Mg Supp.Rect [place] 06/22/25 14:57 DAILY PRN Constipation Diclofenac Sodium 2 gm 06/27/24 14:00 06/30/24 14:34 Diclofenac Sodium 1% Gel 100 Gm Tube TOPICAL 06/27/25 13:59 Not Given TID DORI Docusate Sodium 100 mg 06/22/24 14:58 Docusate 100 Mg Capsule PO 06/22/25 14:57 BID PRN Constipation Docusate Sodium 283 mg 06/22/24 14:58 Docusate Enema 283 Mg/5 Ml Enema [place] 06/22/25 14:57 DAILY PRN Constipation Fish Oil 1,000 mg 06/22/24 21:00 06/30/24 08:50 Shaniko-3/Fish Oil 1,000 Mg Capsule PO 06/22/25 20:59 1,000 mg BID DORI Administration Furosemide 20 mg 06/24/24 08:00 06/30/24 08:50 Furosemide 20 Mg Tablet PO 06/24/25 07:59 20 mg DAILY.8A DORI Administration Gabapentin 300 mg 06/22/24 21:00 06/30/24 08:51 Gabapentin 300 Mg Capsule PO 06/22/25 20:59 300 mg BID DORI Administration Hydralazine HCl 25 mg 06/22/24 21:00 06/30/24 08:50 Hydralazine 25 Mg Tablet PO 06/22/25 20:59 25 mg BID DORI Administration Lactulose 30 gm 06/22/24 14:58 Lactulose 20 Gm/30 Ml Udc PO 06/22/25 14:57 DAILY PRN Constipation Lidocaine 2 patch 06/27/24 12:00 06/30/24 08:52 Lidocaine 4% Adh..Patch TOPICAL 06/27/25 11:59 2 patch DAILY DORI Administration Lidocaine 1 patch 06/30/24 21:00 Lidocaine 4% Adh..Patch TOPICAL 06/30/25 20:59 DAILY DORI Lisinopril 20 mg 06/23/24 09:00 06/30/24 08:51 Lisinopril 20 Mg Tablet PO 06/23/25 08:59 20 mg DAILY DORI Administration Loratadine 10 mg 06/23/24 09:00 06/30/24 08:50 Loratadine 10 Mg Tablet PO 06/23/25 08:59 10 mg DAILY DORI Administration Methocarbamol 1,000 mg 06/30/24 09:50 Methocarbamol 500 Mg Tablet PO 06/30/25 09:49 Q6H PRN Muscle Spasm Multivitamins 1 tab 06/23/24 09:00 06/30/24 08:50 Multivitamin 1 Tab Tablet PO 06/23/25 08:59 1 tab DAILY DORI Administration Nebivolol 10 mg 06/23/24 09:00 06/30/24 08:50 Nebivolol 5 Mg Tablet PO 06/23/25 08:59 10 mg DAILY DORI Administration Nystatin 1 applic 06/29/24 13:45 06/30/24 08:51 Nystatin 100,000 Unit/Gram Powder 15 Gm Bottle TOPICAL 06/29/25 13:44 1 applic BID DORI Administration Pantoprazole Sodium 40 mg 06/22/24 21:00 06/30/24 08:50 Pantoprazole 40 Mg Tablet.Dr PO 06/22/25 20:59 40 mg BID DORI Administration Phenyleph/Shark Oil/[place] Butter 1 supp 06/22/24 14:57 Phenylephrine/[place] Butter 6.25 Mg/2211 Mg 1 Supp [place] 06/22/25 14:56 BID PRN hemorrhoids Potassium Chloride 20 meq 06/22/24 14:57 Potassium Chloride Er 20 Meq Tab.Er.Prt PO 06/22/25 14:56 DAILY PRN Hypokalemia Potassium Chloride 10 meq 06/26/24 09:00 06/30/24 08:50 Potassium Chloride Er 10 Meq Capsule.Er PO 06/26/25 08:59 10 meq DAILY DORI Administration Prednisone 15 mg 06/24/24 09:00 06/30/24 08:50 Prednisone 5 Mg Tablet PO 06/24/25 08:59 15 mg DAILY DORI Administration Pyridostigmine [place] 60 mg 06/22/24 18:00 06/30/24 17:46 Pyridostigmine [place] 60 Mg Tablet PO 06/22/25 17:59 60 mg QID DORI Administration Sennosides 17.2 mg 06/23/24 12:00 Sennosides 8.6 Mg Tablet PO 06/23/25 11:59 DAILY@12 PRN If no BM in 2 days Sodium Chloride 0 ml 06/22/24 14:58 Sodium Chloride 0.9 % 10 Ml Syringe IV-PUSH 06/22/25 14:57 PRN PRN Flush Spironolactone 25 mg 06/23/24 09:00 06/30/24 08:50 Spironolactone 25 Mg Tablet PO 06/23/25 08:59 25 mg DAILY DORI Administration Assessment/Plan Assessment/Plan (1) Acute exacerbation of myasthenia gravis: (2) History of pulmonary embolism: (3) JAMISON on CPAP: (4) Dyspnea: (5) Generalized weakness: (6) Impaired mobility and activities of daily living: Plan 78-year-old male with past medical history as above who presents to acute inpatient rehabilitation unit with functional impairments in the setting of myasthenia gravis exacerbation. Initially admitted to ICU. Neurology consultedmanagement. Did not require IVIG this time, only increased doses of prednisone and pyridostigmine. Feeling better already, but still somewhat weak and not at his functional baseline. Does report to have been declining functionally over the last several months, leading mostly sedentary lifestyle. Does have home health therapy in place which according to the patient provides limited benefit. * Adding Robaxin for pain and stiffness in am * Improving with therapy. Pain is better controlled. * Continue topical modalities, lidoderm patch/voltaren gel. * Ambulatory and able to do some stairs. * No respiratory issues/weakness. Patient education Pressure ulcer prophylaxis; encourage mobilization, frequent postural changes, pressure-relief techniques DVT prophylaxis Encourage deep breathing exercise incentive spirometry. Monitor [...] equipment to enhance the patient's a functional anabaptist Ensure adequate nutrition and hydration Sleep Discharge planning. Patient was personally seen by me, Dr. Bennett, on the day of encounter, reviewed the history and the relevant portions of the chart, including current orders, allied health and health management consultant notes, labs/imaging and performed garcia elements of exam and I formulated the plan of care and facilitated the medical decision making. I completed a substantive portion of this encounter, the medical decision makingportion of this note in its entirety, including Allied health note review, nursing note review, health management consultant note review, discussion with nursing and case management, and more than 50% of my time was spent on counseling and coordination of care, time spent 25 minutes Documented By: Fidel Bennett MD [id number] Signed By: <Electronically signed by Fidel Bennett MD> 06/30/242121 [facility] Work Phone: [phone]) 286-227211-10-2024 [place] [address] Physiatry(Rehab) Progress Note Signed Patient: Taurus Garcia MR#: [id number] : 1945 Acct:[id number] Age/Sex: 78 / M Adm Date: 4 Loc: 5T Room: 5R0764-4 Type: ADM IN Attending Dr: Silvestre Grover MD Copies to: ~ Date of Service: 06/30/2024 Subjective Subjective Narrative: Mr. Garcia is a 78 year old male with past medical history of myasthenia gravis diagnosed in 2017, under management of Dr. Saunders neurology, paroxysmal A-fib, CKD, hypertension, JAMISON, history of PE, who is well-known to rehab services from prior admissions, presenting to acute inpatient rehab with functional impairments in the setting of MG exacerbation. He was brought to the hospital on 06/19/2024 with worsening generalized weaknessand shortness of breath with activity over the past week or so. According to patient's though, he had been gradually declining over the last several months. Initial ER workup was notable for mild hypokalemia and hyp omagnesemia, but otherwise unremarkable. Chest x-ray with chronic interstitial changes without consolidation. Neurology service was consulted. Dr. Packer recommended increasing pyridostigmine temporarily to 90mg 4 times daily. This is to be decreased backto 60 mg as per home regimen upon rehab admission. Home steroid dose was also uptitrated to 60 mg daily for 5 days. No consideration for IVIG at this time. Pulmonary services consulted and assisted with CPAP management. Patient did undergo an echo which demonstrated an EF of 60 to 65% with mild to moderate LVH. While inpatient, he was also diuresed with furosemide due to suspected fluid overload. Patient was eventually evaluated by PT/OT who recommended acute rehab for strengthening. Interval history: Patient seen while working with therapy. He notes some increased pain particularly in the morning which improves later in the day. No other issues Review of Systems Review of Systems All other systems reviewed & are negative unless noted below or in HPI Exam Physical Exam Vital Signs: Temp Pulse Resp BP Pulse Ox O2 Del Method 98.7 F 69 18 113/68 94 L Room Air 06/30/24 16:02 06/30/24 16:02 06/30/24 16:02 06/30/24 16:02 06/30/24 16:02 06/30/24 16:03 Narrative: Gen: Awake, oriented, cooperative. HEENT: Atraumatic, PERRL, EOMI Resp: No respiratory distress Cardio: Extremities well perfused MSK: Moves all extremities spontaneously Neuro: CN grossly intact Skin: No swelling, erythema, ecchymosis appreciated Psych: Mood and affect normal Objective Labs 06/23/24 04:55 06/26/24 05:57 Medications and Allergies Allergies and Active Meds: Allergies No Known Allergies Allergy (Verified 06/19/24 09:45) Active Medications Generic Name Dose Route Start Last Admin Trade Name Freq PRN Reason Stop Dose Admin Acetaminophen 650 mg 06/22/24 14:57 06/29/24 08:06 Acetaminophen 325 Mg Tablet PO 06/22/25 14:56 650 mg Q4H PRN Administration Pain Scale 1 - 3 or fever Al Hydrox/Mg Hydrox/Simethicone 30 ml 11/02/24 14:58 Mag Hydrox/Al Hydrox/Simeth 30 Ml Udc PO 06/22/25 14:57 Q4H PRN Indigestion Apixaban 5 mg 06/23/24 09:00 06/30/24 08:50 Apixaban 5 Mg Tablet PO 06/23/25 08:59 5 mg BID DORI Administration Ascorbic Acid 500 mg 06/23/24 09:00 06/30/24 08:50 Ascorbic Acid 500 Mg Tablet PO 06/23/25 08:59 500 mg DAILY DORI Administration Atorvastatin Calcium 20 mg 06/22/24 22:00 06/29/24 21:37 Atorvastatin 20 Mg Tablet PO 06/22/25 21:59 20 mg HS DORI Administration Bisacodyl 10 mg 06/22/24 14:58 Bisacodyl 10 Mg Supp.Rect [place] 06/22/25 14:57 DAILY PRN Constipation Diclofenac Sodium 2 gm 06/27/24 14:00 06/30/24 14:34 Diclofenac Sodium 1% Gel 100 Gm Tube TOPICAL 06/27/25 13:59 Not Given TID DORI Docusate Sodium 100 mg 06/22/24 14:58 Docusate 100 Mg Capsule PO 06/22/25 14:57 BID PRN Constipation Docusate Sodium 283 mg 06/22/24 14:58 Docusate Enema 283 Mg/5 Ml Enema [place] 06/22/25 14:57 DAILY PRN Constipation Fish Oil 1,000 mg 06/22/24 21:00 06/30/24 08:50 Shaniko-3/Fish Oil 1,000 Mg Capsule PO 06/22/25 20:59 1,000 mg BID DORI Administration Furosemide 20 mg 06/24/24 08:00 06/30/24 08:50 Furosemide 20 Mg Tablet PO 06/24/25 07:59 20 mg DAILY.8A DORI Administration Gabapentin 300 mg 06/22/24 21:00 06/30/24 08:51 Gabapentin 300 Mg Capsule PO 06/22/25 20:59 300 mg BID DORI Administration Hydralazine HCl 25 mg 06/22/24 21:00 06/30/24 08:50 Hydralazine 25 Mg Tablet PO 06/22/25 20:59 25 mg BID DORI Administration Lactulose 30 gm 06/22/24 14:58 Lactulose 20 Gm/30 Ml Udc PO 06/22/25 14:57 DAILY PRN Constipation Lidocaine 2 patch 06/27/24 12:00 06/30/24 08:52 Lidocaine 4% Adh..Patch TOPICAL 06/27/25 11:59 2 patch DAILY DORI Administration Lidocaine 1 patch 06/30/24 21:00 Lidocaine 4% Adh..Patch TOPICAL 06/30/25 20:59 DAILY DORI Lisinopril 20 mg 06/23/24 09:00 06/30/24 08:51 Lisinopril 20 Mg Tablet PO 06/23/25 08:59 20 mg DAILY DORI Administration Loratadine 10 mg 06/23/24 09:00 06/30/24 08:50 Loratadine 10 Mg Tablet PO 06/23/25 08:59 10 mg DAILY DORI Administration Methocarbamol 1,000 mg 06/30/24 09:50 Methocarbamol 500 Mg Tablet PO 06/30/25 09:49 Q6H PRN Muscle Spasm Multivitamins 1 tab 06/23/24 09:00 06/30/24 08:50 Multivitamin 1 Tab Tablet PO 06/23/25 08:59 1 tab DAILY DORI Administration Nebivolol 10 mg 06/23/24 09:00 06/30/24 08:50 Nebivolol 5 Mg Tablet PO 06/23/25 08:59 10 mg DAILY DORI Administration Nystatin 1 applic 06/29/24 13:45 06/30/24 08:51 Nystatin 100,000 Unit/Gram Powder 15 Gm Bottle TOPICAL 06/29/25 13:44 1 applic BID DORI Administration Pantoprazole Sodium 40 mg 06/22/24 21:00 06/30/24 08:50 Pantoprazole 40 Mg Tablet.Dr PO 06/22/25 20:59 40 mg BID DORI Administration Phenyleph/Shark Oil/[place] Butter 1 supp 06/22/24 14:57 Phenylephrine/[place] Butter 6.25 Mg/2211 Mg 1 Supp [place] 06/22/25 14:56 BID PRN hemorrhoids Potassium Chloride 20 meq 06/22/24 14:57 Potassium Chloride Er 20 Meq Tab.Er.Prt PO 06/22/25 14:56 DAILY PRN Hypokalemia Potassium Chloride 10 meq 06/26/24 09:00 06/30/24 08:50 Potassium Chloride Er 10 Meq Capsule.Er PO 06/26/25 08:59 10 meq DAILY DORI Administration Prednisone 15 mg 06/24/24 09:00 06/30/24 08:50 Prednisone 5 Mg Tablet PO 06/24/25 08:59 15 mg DAILY DORI Administration Pyridostigmine [place] 60 mg 06/22/24 18:00 06/30/24 17:46 Pyridostigmine [place] 60 Mg Tablet PO 06/22/25 17:59 60 mg QID DORI Administration Sennosides 17.2 mg 06/23/24 12:00 Sennosides 8.6 Mg Tablet PO 06/23/25 11:59 DAILY@12 PRN If no BM in 2 days Sodium Chloride 0 ml 06/22/24 14:58 Sodium Chloride 0.9 % 10 Ml Syringe IV-PUSH 06/22/25 14:57 PRN PRN Flush Spironolactone 25 mg 06/23/24 09:00 06/30/24 08:50 Spironolactone 25 Mg Tablet PO 06/23/25 08:59 25 mg DAILY DORI Administration Assessment/Plan Assessment/Plan (1) Acute exacerbation of myasthenia gravis: (2) History of pulmonary embolism: (3) JAMISON on CPAP: (4) Dyspnea: (5) Generalized weakness: (6) Impaired mobility and activities of daily living: Plan 78-year-old male with past medical history as above who presents to acute inpatient rehabilitation unit with functional impairments in the setting of myasthenia gravis exacerbation. Initially admitted to ICU. Neurology consultedmanagement. Did not require IVIG this time, only increased doses of prednisone and pyridostigmine. Feeling better already, but still somewhat weak and not at his functional baseline. Does report to have been declining functionally over the last several months, leading mostly sedentary lifestyle. Does have home health therapy in place which according to the patient provides limited benefit. * Adding Robaxin for pain and stiffness in am * Improving with therapy. Pain is better controlled. * Continue topical modalities, lidoderm patch/voltaren gel. * Ambulatory and able to do some stairs. * No respiratory issues/weakness. Patient education Pressure ulcer prophylaxis; encourage mobilization, frequent postural changes, pressure-relief techniques DVT prophylaxis Encourage deep breathing exercise incentive spirometry. Monitor [...] equipment to enhance the patient's a functional anabaptist Ensure adequate nutrition and hydration Sleep Discharge planning. Patient was personally seen by me, Dr. Bennett, on the day of encounter, reviewed the history and the relevant portions of the chart, including current orders, allied health and health management consultant notes, labs/imaging and performed garcia elements of exam and I formulated the plan of care and facilitated the medical decision making. I completed a substantive portion of this encounter, the medical decision makingportion of this note in its entirety, including Allied health note review, nursing note review, health management consultant note review,discussion with nursing and case management, and more than 50% of my time was spent on counseling and coordination of care, time spent 25 minutes Documented By: Fidel Bennett MD [id number] Signed By: 06/30/242121 [facility]11-10-2024 Progress note Author Susanne Sharma [facility] Note Date/Time June 30, 2024 4:13pm [facility] [address] [place] [address] Hospitalist Progress Note Signed Patient: Taurus Garcia MR#: [id number] : 1945 Acct:[id number] Age/Sex: 78 / M Adm Date: 4 Loc: Room: [address] [place] [address] Type: ADM IN Attending Dr: Silvestre Grover MD Copies to: ~ Date of Service: 06/30/2024 Subjective Subjective Narrative: Seen and examined in follow-up, reports having a lot of pain from right hip areain the morning which has been interfering with his capacity to participate in physical therapy in the morning. He is willing to try lidocaine patch and Voltaren gel to that area. Slightly bradycardic, asymptomatic.BP reviewed, has been mostly controlled. No new labs since 06/26 with MATT has resolved. No further issues. Exam Physical Exam Vital Signs: Temp Pulse Resp BP Pulse Ox O2 Del Method 98.5 F 50 L 18 152/72 H 97 Room Air 06/30/24 05:00 06/30/24 05:00 06/30/24 05:00 06/30/24 05:00 06/30/24 05:00 06/30/24 08:37 Narrative: CONST-morbidly obese, alert awake sitting up in chair CARDIAC?normal rate, regular rhythm, normal S1 & S2. PULM?diminished without wheeze or rhonchi, RA, no accessory muscle use or cough noted ABD ? Soft. Bowel sounds are normal. Obese, no tenderness EXTREM?no edema BLE calves nontender SKIN?fair skin turgor Objective Lab Results 06/23/24 04:55 06/26/24 05:57 Meds Allergies and Active Meds Allergies No Known Allergies Allergy (Verified 06/19/24 09:45) Active Meds: Active Medications Generic Name Dose Route Start Last Admin Trade Name Freq PRN Reason Stop Dose Admin Acetaminophen 650 mg 06/22/24 14:57 06/29/24 08:06 Acetaminophen 325 Mg Tablet PO 06/22/25 14:56 650 mg Q4H PRN Administration Pain Scale 1 - 3 or fever Al Hydrox/Mg Hydrox/Simethicone 30 ml 06/22/24 14:58 Mag Hydrox/Al Hydrox/Simeth 30 Ml Udc PO 06/22/25 14:57 Q4H PRN Indigestion Apixaban 5 mg 06/23/24 09:00 06/30/24 08:50 Apixaban 5 Mg Tablet PO 06/23/25 08:59 5 mg BID DORI Administration Ascorbic Acid 500 mg 06/23/24 09:00 06/30/24 08:50 Ascorbic Acid 500 Mg Tablet PO 06/23/25 08:59 500 mg DAILY DORI Administration Atorvastatin Calcium 20 mg 06/22/24 22:00 06/29/24 21:37 Atorvastatin 20 Mg Tablet PO 06/22/25 21:59 20 mg HS DORI Administration Bisacodyl 10 mg 06/22/24 14:58 Bisacodyl 10 Mg Supp.Rect [place] 06/22/25 14:57 DAILY PRN Constipation Diclofenac Sodium 2 gm 06/27/24 14:00 06/30/24 08:53 Diclofenac Sodium 1% Gel 100 Gm Tube TOPICAL 06/27/25 13:59 2 gm TID DORI Administration Docusate Sodium 100 mg 06/22/24 14:58 Docusate 100 Mg Capsule PO 06/22/25 14:57 BID PRN Constipation Docusate Sodium 283 mg 06/22/24 14:58 Docusate Enema 283 Mg/5 Ml Enema [place] 06/22/25 14:57 DAILY PRN Constipation Fish Oil 1,000 mg 06/22/24 21:00 06/30/24 08:50 Shaniko-3/Fish Oil 1,000 Mg Capsule PO 06/22/25 20:59 1,000 mg BID DORI Administration Furosemide 20 mg 06/24/24 08:00 06/30/24 08:50 Furosemide 20 Mg Tablet PO 06/24/25 07:59 20 mg DAILY.8A DORI Administration Gabapentin 300 mg 06/22/24 21:00 06/30/24 08:51 Gabapentin 300 Mg Capsule PO 06/22/25 20:59 300 mg BID DORI Administration Hydralazine HCl 25 mg 06/22/24 21:00 06/30/24 08:50 Hydralazine 25 Mg Tablet PO 06/22/25 20:59 25 mg BID DORI Administration Lactulose 30 gm 06/22/24 14:58 Lactulose 20 Gm/30 Ml Udc PO 06/22/25 14:57 DAILY PRN Constipation Lidocaine 2 patch 06/27/24 12:00 06/30/24 08:52 Lidocaine 4% Adh..Patch TOPICAL 06/27/25 11:59 2 patch DAILY DORI Administration Lisinopril 20 mg 06/23/24 09:00 06/30/24 08:51 Lisinopril 20 Mg Tablet PO 06/23/25 08:59 20 mg DAILY DORI Administration Loratadine 10 mg 06/23/24 09:00 06/30/24 08:50 Loratadine 10 Mg Tablet PO 06/23/25 08:59 10 mg DAILY DORI Administration Methocarbamol 1,000 mg 06/30/24 09:50 Methocarbamol 500 Mg Tablet PO 06/30/25 09:49 Q6H PRN Muscle Spasm Multivitamins 1 tab 06/23/24 09:00 06/30/24 08:50 Multivitamin 1 Tab Tablet PO 06/23/25 08:59 1 tab DAILY DORI Administration Nebivolol 10 mg 06/23/24 09:00 06/30/24 08:50 Nebivolol 5 Mg Tablet PO 06/23/25 08:59 10 mg DAILY DORI Administration Nystatin 1 applic 06/29/24 13:45 06/30/24 08:51 Nystatin 100,000 Unit/Gram Powder 15 Gm Bottle TOPICAL 06/29/25 13:44 1 applic BID DORI Administration Pantoprazole Sodium 40 mg 06/22/24 21:00 06/30/24 08:50 Pantoprazole 40 Mg Tablet.Dr PO 06/22/25 20:59 40 mg BID DORI Administration Phenyleph/Shark Oil/[place] Butter 1 supp 06/22/24 14:57 Phenylephrine/[place] Butter 6.25 Mg/2211 Mg 1 Supp [place] 06/22/25 14:56 BID PRN hemorrhoids Potassium Chloride 20 meq 06/22/24 14:57 Potassium Chloride Er 20 Meq Tab.Er.Prt PO 06/22/25 14:56 DAILY PRN Hypokalemia Potassium Chloride 10 meq 06/26/24 09:00 06/30/24 08:50 Potassium Chloride Er 10 Meq Capsule.Er PO 06/26/25 08:59 10 meq DAILY DORI Administration Prednisone 15 mg 06/24/24 09:00 06/30/24 08:50 Prednisone 5 Mg Tablet PO 06/24/25 08:59 15 mg DAILY DORI Administration Pyridostigmine Drybranch 60 mg 06/22/24 18:00 06/30/24 08:50 Pyridostigmine Drybranch 60 Mg Tablet PO 06/22/25 17:59 60 mg QID DORI Administration Sennosides 17.2 mg 06/23/24 12:00 Sennosides 8.6 Mg Tablet PO 06/23/25 11:59 DAILY@12 PRN If no BM in 2 days Sodium Chloride 0 ml 06/22/24 14:58 Sodium Chloride 0.9 % 10 Ml Syringe IV-PUSH 06/22/25 14:57 PRN PRN Flush Spironolactone 25 mg 06/23/24 09:00 06/30/24 08:50 Spironolactone 25 Mg Tablet PO 06/23/25 08:59 25 mg DAILY DORI Administration A&P - Hospitalist Assessment/Plan (1) Acute exacerbation of myasthenia gravis: (2) Generalized weakness: (3) JAMISON on CPAP: (4) Chronic anticoagulation: (5) Hypertension: Plan Myasthenia Gravis, acute exacerbation Generalized weakness -further plan of care per PMR team for rehabilitative therapy, pain control & bowel regimen, DVT prophylaxis -please consult neurology IF any further neuromuscular decline -Prednisone taper to baseline prednisone dosing, Pyridostigmine MATT, resolved Chronic Conditions 1. Morbid Obesity BMI 47.9 2. JAMISON on CPAP 3. Hx PE on chronic anticoagulation- apixaban 4. HTN- hydralazine, nebivolol, lisinopril, furosemide, spironolactone, BP slightly elevated but has been controlled, continue to monitor 5. GERD- pantoprazole 6. HLD- Fish oil, simvastatin 7. Paroxysmal Afib on chronic anticoagulation- apixaban, nebivolol 8. Low back pain, chronic- gabapentin Documented By: Susanne Sharma APRN 06/30/24 1145 Signed By: <Electronically signed by ZACH Sharma> 06/30/24 1159 <Electronically signed by Kevin Leo MD> 06/30/24 1615 [facility] Work Phone: 1(181) 476-350011-10-2024 [place] [address] Hospitalist Progress Note Signed Patient: Taurus Garcia MR#: [id number] : 1945 Acct:[id number] Age/Sex: 78 / M Adm Date: 4 Loc: Room: [address] [place] [address] Type: ADM IN Attending Dr: Silvestre Grover MD Copies to: ~ Date of Service: 06/30/2024 Subjective Subjective Narrative: Seen and examined in follow-up, reports having a lot of pain from right hip areain the morning which has been interfering with his capacity to participate in physical therapy in the morning. He is willing to try lidocaine patch and Voltaren gel to that area. Slightly bradycardic, asymptomatic.BP reviewed, has been mostly controlled. No new labs since 06/26 with MATT has resolved. No further issues. Exam Physical Exam Vital Signs: Temp Pulse Resp BP Pulse Ox O2 Del Method 98.5 F 50 L 18 152/72 H 97 Room Air 06/30/24 05:00 06/30/24 05:00 06/30/24 05:00 06/30/24 05:00 06/30/24 05:00 06/30/24 08:37 Narrative: CONST-morbidly obese, alert awake sitting up in chair CARDIAC?normal rate, regular rhythm, normal S1 & S2. PULM?diminished without wheeze or rhonchi, RA, no accessory muscle use or cough noted ABD ? Soft. Bowel sounds are normal. Obese, no tenderness EXTREM?no edema BLE calves nontender SKIN?fair skin turgor Objective Lab Results 06/23/24 04:55 06/26/24 05:57 Meds Allergies and Active Meds Allergies No Known Allergies Allergy (Verified 06/19/24 09:45) Active Meds: Active Medications Generic Name Dose Route Start Last Admin Trade Name Freq PRN Reason Stop Dose Admin Acetaminophen 650 mg 06/22/24 14:57 06/29/24 08:06 Acetaminophen 325 Mg Tablet PO 06/22/25 14:56 650 mg Q4H PRN Administration Pain Scale 1 - 3 or fever Al Hydrox/Mg Hydrox/Simethicone 30 ml 06/22/24 14:58 Mag Hydrox/Al Hydrox/Simeth 30 Ml Udc PO 06/22/25 14:57 Q4H PRN Indigestion Apixaban 5 mg 06/23/24 09:00 06/30/24 08:50 Apixaban 5 Mg Tablet PO 06/23/25 08:59 5 mg BID DORI Administration Ascorbic Acid 500 mg 06/23/24 09:00 06/30/24 08:50 Ascorbic Acid 500 Mg Tablet PO 06/23/25 08:59 500 mg DAILY DORI Administration Atorvastatin Calcium 20 mg 06/22/24 22:00 06/29/24 21:37 Atorvastatin 20 Mg Tablet PO 06/22/25 21:59 20 mg HS DORI Administration Bisacodyl 10 mg 06/22/24 14:58 Bisacodyl 10 Mg Supp.Rect [place] 06/22/25 14:57 DAILY PRN Constipation Diclofenac Sodium 2 gm 06/27/24 14:00 06/30/24 08:53 Diclofenac Sodium 1% Gel 100 Gm Tube TOPICAL 06/27/25 13:59 2 gm TID DORI Administration Docusate Sodium 100 mg 06/22/24 14:58 Docusate 100 Mg Capsule PO 06/22/25 14:57 BID PRN Constipation Docusate Sodium 283 mg 06/22/24 14:58 Docusate Enema 283 Mg/5 Ml Enema [place] 06/22/25 14:57 DAILY PRN Constipation Fish Oil 1,000 mg 06/22/24 21:00 06/30/24 08:50 Shaniko-3/Fish Oil 1,000 Mg Capsule PO 06/22/25 20:59 1,000 mg BID DORI Administration Furosemide 20 mg 06/24/24 08:00 06/30/24 08:50 Furosemide 20 Mg Tablet PO 06/24/25 07:59 20 mg DAILY.8A DORI Administration Gabapentin 300 mg 06/22/24 21:00 06/30/24 08:51 Gabapentin 300 Mg Capsule PO 06/22/25 20:59 300 mg BID DORI Administration Hydralazine HCl 25 mg 06/22/24 21:00 06/30/24 08:50 Hydralazine 25 Mg Tablet PO 06/22/25 20:59 25 mg BID DORI Administration Lactulose 30 gm 06/22/24 14:58 Lactulose 20 Gm/30 Ml Udc PO 06/22/25 14:57 DAILY PRN Constipation Lidocaine 2 patch 06/27/24 12:00 06/30/24 08:52 Lidocaine 4% Adh..Patch TOPICAL 06/27/25 11:59 2 patch DAILY DORI Administration Lisinopril 20 mg 06/23/24 09:00 06/30/24 08:51 Lisinopril 20 Mg Tablet PO 06/23/25 08:59 20 mg DAILY DORI Administration Loratadine 10 mg 06/23/24 09:00 06/30/24 08:50 Loratadine 10 Mg Tablet PO 06/23/25 08:59 10 mg DAILY DORI Administration Methocarbamol 1,000 mg 06/30/24 09:50 Methocarbamol 500 Mg Tablet PO 06/30/25 09:49 Q6H PRN Muscle Spasm Multivitamins 1 tab 06/23/24 09:00 06/30/24 08:50 Multivitamin 1 Tab Tablet PO 06/23/25 08:59 1 tab DAILY DORI Administration Nebivolol 10 mg 06/23/24 09:00 06/30/24 08:50 Nebivolol 5 Mg Tablet PO 06/23/25 08:59 10 mg DAILY DORI Administration Nystatin 1 applic 06/29/24 13:45 06/30/24 08:51 Nystatin 100,000 Unit/Gram Powder 15 Gm Bottle TOPICAL 06/29/25 13:44 1 applic BID DORI Administration Pantoprazole Sodium 40 mg 06/22/24 21:00 06/30/24 08:50 Pantoprazole 40 Mg Tablet.Dr PO 06/22/25 20:59 40 mg BID DORI Administration Phenyleph/Shark Oil/[place] Butter 1 supp 06/22/24 14:57 Phenylephrine/[place] Butter 6.25 Mg/2211 Mg 1 Supp [place] 06/22/25 14:56 BID PRN hemorrhoids Potassium Chloride 20 meq 06/22/24 14:57 Potassium Chloride Er 20 Meq Tab.Er.Prt PO 06/22/25 14:56 DAILY PRN Hypokalemia Potassium Chloride 10 meq 06/26/24 09:00 06/30/24 08:50 Potassium Chloride Er 10 Meq Capsule.Er PO 06/26/25 08:59 10 meq DAILY DORI Administration Prednisone 15 mg 06/24/24 09:00 06/30/24 08:50 Prednisone 5 Mg Tablet PO 06/24/25 08:59 15 mg DAILY DORI Administration Pyridostigmine Drybranch 60 mg 06/22/24 18:00 06/30/24 08:50 Pyridostigmine [place] 60 Mg Tablet PO 06/22/25 17:59 60 mg QID DORI Administration Sennosides 17.2 mg 06/23/24 12:00 Sennosides 8.6 Mg Tablet PO 06/23/25 11:59 DAILY@12 PRN If no BM in 2 days Sodium Chloride 0 ml 06/22/24 14:58 Sodium Chloride 0.9 % 10 Ml Syringe IV-PUSH 06/22/25 14:57 PRN PRN Flush Spironolactone 25 mg 06/23/24 09:00 06/30/24 08:50 Spironolactone 25 Mg Tablet PO 06/23/25 08:59 25 mg DAILY DORI Administration A&P - Hospitalist Assessment/Plan (1) Acute exacerbation of myasthenia gravis: (2) Generalized weakness: (3) JAMISON on CPAP: (4) Chronic anticoagulation: (5) Hypertension: Plan Myasthenia Gravis, acute exacerbation Generalized weakness -further plan of care per PMR team for rehabilitative therapy, pain control & bowel regimen, DVT prophylaxis -please consult neurology IF any further neuromuscular decline -Prednisone taper to baseline prednisone dosing, Pyridostigmine MATT, resolved Chronic Conditions 1. Morbid Obesity BMI 47.9 2. JAMISON on CPAP 3. Hx PE on chronic anticoagulation- apixaban 4. HTN- hydralazine, nebivolol, lisinopril, furosemide, spironolactone, BP slightly elevated but has been controlled, continue to monitor 5. GERD- pantoprazole 6. HLD- Fish oil, simvastatin 7. Paroxysmal Afib on chronic anticoagulation- apixaban, nebivolol 8. Low back pain, chronic- gabapentin Documented By: Susanne Sharma APRN 06/30/24 1145 Signed By: 06/30/24 1159 06/30/24 1613 [facility]11-08-2024 Progress note Author Silvestre Grover [facility] Note Date/Time June 28, 2024 2 :35pm [facility] [address] [place] [address] Physiatry(Rehab) Progress Note Signed Patient: Taurus Garcia MR#: [id number] : 1945 Acct:[id number] Age/Sex: 78 / M Adm Date: 4 Loc: Room: 3A6649-2 Type: ADM IN Attending Dr: Silvestre Grover MD Copies to: ~ Date of Service: 06/28/2024 Subjective Subjective Narrative: Mr. Garcia is a 78 year old male with past medical history of myasthenia gravis diagnosed in 2017, under management of Dr. Saunders neurology, paroxysmal A-fib, CKD, hypertension, JAMISON, history of PE, who is well-known to rehab services from prior admissions, presenting to acute inpatient rehab with functional impairments in the setting of MG exacerbation. He was brought to the hospital on 06/19/2024 with worsening generalized weaknessand shortness of breath with activity over the past week or so. According to patient's though, he had been gradually declining over the last several months. Initial ER workup was notable for mild hypokalemia and hypomagnesemia, but otherwise unremarkable. Chest x-ray with chronic interstitial changes without consolidation. Neurology service was consulted. Dr. Packer recommended increasing pyridostigmine temporarily to 90 mg 4 times daily. This is to be decreased backto 60 mg as per home regimen upon rehab admission. Home steroid dose was also uptitrated to 60 mg daily for 5 days. No consideration for IVIG at this time. Pulmonary services consulted and assisted with CPAP management. Patient did undergo an echo which demonstrated an EF of 60 to 65% with mild to moderate LVH. While inpatient, he was also diuresed with furosemide due to suspected fluid overload. Patient was eventually evaluated by PT/OT who recommended acute rehab for strengthening. Interval history: Continues to improve. Knee pain is better. Discussed with PT. No new weakness or respiratory issues. Review of Systems Review of Systems All other systems reviewed & are negative unless noted below or in HPI Exam Physical Exam Vital Signs: Temp Pulse Resp BP Pulse Ox O2 Del Method 97.7 F 52 L 18 133/60 97 Room Air 06/28/24 05:00 06/28/24 05:00 06/28/24 05:00 06/28/24 05:00 06/28/24 05:00 06/28/24 09:19 Narrative: Gen: Awake, oriented, cooperative. HEENT: Atraumatic, PERRL, EOMI Resp: No respiratory distress Cardio: Extremities well perfused MSK: Moves all extremities spontaneously Neuro: CN grossly intact Skin: No swelling, erythema, ecchymosis appreciated Psych: Mood and affect normal Objective Labs 06/23/24 04:55 06/26/24 05:57 Medications and Allergies Allergies and Active Meds: Allergies No Known Allergies Allergy (Verified 06/19/24 09:45) Active Medications Generic Name Dose Route Start Last Admin Trade Name Freq PRN Reason Stop Dose Admin Acetaminophen 650 mg 06/22/24 14:57 06/28/24 09:06 Acetaminophen 325 Mg Tablet PO 06/22/25 14:56 650 mg Q4H PRN Administration Pain Scale 1 - 3 or fever Al Hydrox/Mg Hydrox/Simethicone 30 ml 06/22/24 14:58 Mag Hydrox/Al Hydrox/Simeth 30 Ml Udc PO 06/22/25 14:57 Q4H PRN Indigestion Apixaban 5 mg 06/23/24 09:00 06/28/24 09:07 Apixaban 5 Mg Tablet PO 06/23/25 08:59 5 mg BID DORI Administration Ascorbic Acid 500 mg 06/23/24 09:00 06/28/24 09:07 Ascorbic Acid 500 Mg Tablet PO 06/23/25 08:59 500 mg DAILY DORI Administration Atorvastatin Calcium 20 mg 06/22/24 22:00 06/27/24 21:33 Atorvastatin 20 Mg Tablet PO 06/22/25 21:59 20 mg HS DORI Administration Bisacodyl 10 mg 06/22/24 14:58 Bisacodyl 10 Mg Supp.Rect [place] 06/22/25 14:57 DAILY PRN Constipation Diclofenac Sodium 2 gm 06/27/24 14:00 06/28/24 14:01 Diclofenac Sodium 1% Gel 100 Gm Tube TOPICAL 06/27/25 13:59 2 gm TID DORI Administration Docusate Sodium 100 mg 06/22/24 14:58 Docusate 100 Mg Capsule PO 06/22/25 14:57 BID PRN Constipation Docusate Sodium 283 mg 06/22/24 14:58 Docusate Enema 283 Mg/5 Ml Enema [place] 06/22/25 14:57 DAILY PRN Constipation Fish Oil 1,000 mg 06/22/24 21:00 06/28/24 09:07 Shaniko-3/Fish Oil 1,000 Mg Capsule PO 06/22/25 20:59 1,000 mg BID DORI Administration Furosemide 20 mg 06/24/24 08:00 06/28/24 09:07 Furosemide 20 Mg Tablet PO 06/24/25 07:59 20 mg DAILY.8A DORI Administration Gabapentin 300 mg 06/22/24 21:00 06/28/24 09:07 Gabapentin 300 Mg Capsule PO 06/22/25 20:59 300 mg BID DORI Administration Hydralazine HCl 25 mg 06/22/24 21:00 06/28/24 09:07 Hydralazine 25 Mg Tablet PO 06/22/25 20:59 25 mg BID DORI Administration Lactulose 30 gm 06/22/24 14:58 Lactulose 20 Gm/30 Ml Udc PO 06/22/25 14:57 DAILY PRN Constipation Lidocaine 2 patch 06/27/24 12:00 06/28/24 09:08 Lidocaine 4% Adh..Patch TOPICAL 06/27/25 11:59 2 patch DAILY DORI Administration Lisinopril 20 mg 06/23/24 09:00 06/28/24 09:08 Lisinopril 20 Mg Tablet PO 06/23/25 08:59 20 mg DAILY DORI Administration Loratadine 10 mg 06/23/24 09:00 06/28/24 09:07 Loratadine 10 Mg Tablet PO 06/23/25 08:59 10 mg DAILY DORI Administration Multivitamins 1 tab 06/23/24 09:00 06/28/24 09:07 Multivitamin 1 Tab Tablet PO 06/23/25 08:59 1 tab DAILY DORI Administration Nebivolol 10 mg 06/23/24 09:00 06/28/24 09:07 Nebivolol 5 Mg Tablet PO 06/23/25 08:59 10 mg DAILY DORI Administration Pantoprazole Sodium 40 mg 06/22/24 21:00 06/28/24 09:07 Pantoprazole 40 Mg Tablet.Dr PO 06/22/25 20:59 40 mg BID DORI Administration Phenyleph/Shark Oil/[place] Butter 1 supp 06/22/24 14:57 Phenylephrine/[place] Butter 6.25 Mg/2211 Mg 1 Supp [place] 06/22/25 14:56 BID PRN hemorrhoids Potassium Chloride 20 meq 06/22/24 14:57 Potassium Chloride Er 20 Meq Tab.Er.Prt PO 06/22/25 14:56 DAILY PRN Hypokalemia Potassium Chloride 10 meq 06/26/24 09:00 06/28/24 09:07 Potassium Chloride Er 10 Meq Capsule.Er PO 06/26/25 08:59 10 meq DAILY DORI Administration Prednisone 15 mg 06/24/24 09:00 06/28/24 09:08 Prednisone 5 Mg Tablet PO 06/24/25 08:59 15 mg DAILY DORI Administration Pyridostigmine Drybranch 60 mg 06/22/24 18:00 06/28/24 14:00 Pyridostigmine [place] 60 Mg Tablet PO 06/22/25 17:59 60 mg QID DORI Administration Sennosides 17.2 mg 06/23/24 12:00 Sennosides 8.6 Mg Tablet PO 06/23/25 11:59 DAILY@12 PRN If no BM in 2 days Sodium Chloride 0 ml 06/22/24 14:58 Sodium Chloride 0.9 % 10 Ml Syringe IV-PUSH 06/22/25 14:57 PRN PRN Flush Spironolactone 25 mg 06/23/24 09:00 06/28/24 09:08 Spironolactone 25 Mg Tablet PO 06/23/25 08:59 25 mg DAILY DORI Administration Assessment/Plan Assessment/Plan (1) Acute exacerbation of myasthenia gravis: (2) History of pulmonary embolism: (3) JAMISON on CPAP: (4) Dyspnea: (5) Generalized weakness: (6) Impaired mobility and activities of daily living: Plan 78-year-old male with past medical history as above who presents to acute inpatient rehabilitation unit with functional impairments in the setting of myasthenia gravis exacerbation. Initially admitted to ICU. Neurology consultedmanagement. Did not require IVIG this time, only increased doses of prednisone and pyridostigmine. Feeling better already, but still somewhat weak and not at his functional baseline. Does report to have been declining functionally over the last several months, leading mostly sedentary lifestyle. Does have home health therapy in place which according to the patient provides limited benefit. * Improving with therapy. Pain is better controlled. * Continue topical modalities, lidoderm patch/voltaren gel. * Ambulatory and able to do some stairs. * No respiratory issues/weakness. Patient education Pressure ulcer prophylaxis; encourage mobilization, frequent postural changes, pressure-relief techniques DVT prophylaxis Encourage deep breathing exercise incentive spirometry. Monitor [...] equipment to enhance the patient's a functional anabaptist Ensure adequate nutrition and hydration Sleep Discharge planning. Patient was personally seen by me, Dr. Grover, on the day of encounter, reviewed the history and the relevant portions of the chart, including current orders, allied health and health management consultant notes, labs/imaging and performed garcia elements of exam and I formulated the plan of care and facilitated the medical decision making. I completed a substantive portion of this encounter, the medical decision makingportion of this note in its entirety, including Allied health note review, nursing note review, health management consultant note review, discussion with nursing and case management, and more than 50% of my time was spent on counseling and coordination of care, time spent 35 minutes Documented By: Silvestre Grover MD 06/28/24 1433 Signed By: <Electronically signed by Silvestre Grover MD> 06/28/24 1439 [facility] Work Phone: 1(406) 433-633511-08-[address] [address] Physiatry(Rehab) Progress Note Signed Patient: Taurus Garcia MR#: [id number] : 1945 Acct:[id number] Age/Sex: 78 / M Adm Date: 4 Loc: Room: [address] [place] [address] Type: ADM IN Attending Dr: Silvestre Grover MD Copies to: ~ Date of Service: 06/28/2024 Subjective Subjective Narrative: Mr. Garcia is a 78 year old male with past medical history of myasthenia gravis diagnosed in 2017, under management of Dr. Saunders neurology, paroxysmal A-fib, CKD, hypertension, JAMISON, history of PE, who is well-known to rehab services from prior admissions, presenting to acute inpatient rehab with functional impairments in the setting of MG exacerbation. He was brought to the hospital on 06/19/2024 with worsening generalized weaknessand shortness of breath with activity over the past week or so. According to patient's though, he had been gradually declining over the last several months. Initial ER workup was notable for mild hypokalemia and hyp omagnesemia, but otherwise unremarkable. Chest x-ray with chronic interstitial changes without consolidation. Neurology service was consulted. Dr. Packer recommended increasing pyridostigmine temporarily to 90mg 4 times daily. This is to be decreased backto 60 mg as per home regimen upon rehab admission. Home steroid dose was also uptitrated to 60 mg daily for 5 days. No consideration for IVIG at this time. Pulmonary services consulted and assisted with CPAP management. Patient did undergo an echo which demonstrated an EF of 60 to 65% with mild to moderate LVH. While inpatient, he was also diuresed with furosemide due to suspected fluid overload. Patient was eventually evaluated by PT/OT who recommended acute rehab for strengthening. Interval history: Continues to improve. Knee pain is better. Discussed with PT. No new weakness or respiratory issues. Review of Systems Review of Systems All other systems reviewed & are negative unless noted below or in HPI Exam Physical Exam Vital Signs: Temp Pulse Resp BP Pulse Ox O2 Del Method 97.7 F 52 L 18 133/60 97 Room Air 06/28/24 05:00 06/28/24 05:00 06/28/24 05:00 06/28/24 05:00 06/28/24 05:00 06/28/24 09:19 Narrative: Gen: Awake, oriented, cooperative. HEENT: Atraumatic, PERRL, EOMI Resp: No respiratory distress Cardio: Extremities well perfused MSK: Moves all extremities spontaneously Neuro: CN grossly intact Skin: No swelling, erythema, ecchymosis appreciated Psych: Mood and affect normal Objective Labs 06/23/24 04:55 06/26/24 05:57 Medications and Allergies Allergies and Active Meds: Allergies No Known Allergies Allergy (Verified 06/19/24 09:45) Active Medications Generic Name Dose Route Start Last Admin Trade Name Jana PRN Reason Stop Dose Admin Acetaminophen 650 mg 06/22/24 14:57 06/28/24 09:06 Acetaminophen 325 Mg Tablet PO 06/22/25 14:56 650 mg Q4H PRN Administration Pain Scale 1 - 3 or fever Al Hydrox/Mg Hydrox/Simethicone 30 ml 06/22/24 14:58 Mag Hydrox/Al Hydrox/Simeth 30 Ml Udc PO 06/22/25 14:57 Q4H PRN Indigestion Apixaban 5 mg 06/23/24 09:00 06/28/24 09:07 Apixaban 5 Mg Tablet PO 06/23/25 08:59 5 mg BID DORI Administration Ascorbic Acid 500 mg 06/23/24 09:00 06/28/24 09:07 Ascorbic Acid 500 Mg Tablet PO 06/23/25 08:59 500 mg DAILY DORI Administration Atorvastatin Calcium 20 mg 06/22/24 22:00 06/27/24 21:33 Atorvastatin 20 Mg Tablet PO 06/22/25 21:59 20 mg HS DORI Administration Bisacodyl 10 mg 06/22/24 14:58 Bisacodyl 10 Mg Supp.Rect [place] 06/22/25 14:57 DAILY PRN Constipation Diclofenac Sodium 2 gm 06/27/24 14:00 06/28/24 14:01 Diclofenac Sodium 1% Gel 100 Gm Tube TOPICAL 06/27/25 13:59 2 gm TID DORI Administration Docusate Sodium 100 mg 06/22/24 14:58 Docusate 100 Mg Capsule PO 06/22/25 14:57 BID PRN Constipation Docusate Sodium 283 mg 06/22/24 14:58 Docusate Enema 283 Mg/5 Ml Enema [place] 06/22/25 14:57 DAILY PRN Constipation Fish Oil 1,000 mg 06/22/24 21:00 06/28/24 09:07 Shaniko-3/Fish Oil 1,000 Mg Capsule PO 06/22/25 20:59 1,000 mg BID DORI Administration Furosemide 20 mg 06/24/24 08:00 06/28/24 09:07 Furosemide 20 Mg Tablet PO 06/24/25 07:59 20 mg DAILY.8A DORI Administration Gabapentin 300 mg 06/22/24 21:00 06/28/24 09:07 Gabapentin 300 Mg Capsule PO 06/22/25 20:59 300 mg BID DORI Administration Hydralazine HCl 25 mg 06/22/24 21:00 06/28/24 09:07 Hydralazine 25 Mg Tablet PO 06/22/25 20:59 25 mg BID DORI Administration Lactulose 30 gm 06/22/24 14:58 Lactulose 20 Gm/30 Ml Udc PO 06/22/25 14:57 DAILY PRN Constipation Lidocaine 2 patch 06/27/24 12:00 06/28/24 09:08 Lidocaine 4% Adh..Patch TOPICAL 06/27/25 11:59 2 patch DAILY DORI Administration Lisinopril 20 mg 06/23/24 09:00 06/28/24 09:08 Lisinopril 20 Mg Tablet PO 06/23/25 08:59 20 mg DAILY DORI Administration Loratadine 10 mg 06/23/24 09:00 06/28/24 09:07 Loratadine 10 Mg Tablet PO 06/23/25 08:59 10 mg DAILY DORI Administration Multivitamins 1 tab 06/23/24 09:00 06/28/24 09:07 Multivitamin 1 Tab Tablet PO 06/23/25 08:59 1 tab DAILY DORI Administration Nebivolol 10 mg 06/23/24 09:00 06/28/24 09:07 Nebivolol 5 Mg Tablet PO 06/23/25 08:59 10 mg DAILY DORI Administration Pantoprazole Sodium 40 mg 06/22/24 21:00 06/28/24 09:07 Pantoprazole 40 Mg Tablet.Dr PO 06/22/25 20:59 40 mg BID DORI Administration Phenyleph/Shark Oil/[place] Butter 1 supp 06/22/24 14:57 Phenylephrine/[place] Butter 6.25 Mg/2211 Mg 1 Supp [place] 06/22/25 14:56 BID PRN hemorrhoids Potassium Chloride 20 meq 06/22/24 14:57 Potassium Chloride Er 20 Meq Tab.Er.Prt PO 06/22/25 14:56 DAILY PRN Hypokalemia Potassium Chloride 10 meq 06/26/24 09:00 06/28/24 09:07 Potassium Chloride Er 10 Meq Capsule.Er PO 06/26/25 08:59 10 meq DAILY DORI Administration Prednisone 15 mg 06/24/24 09:00 06/28/24 09:08 Prednisone 5 Mg Tablet PO 06/24/25 08:59 15 mg DAILY DORI Administration Pyridostigmine Drybranch 60 mg 06/22/24 18:00 06/28/24 14:00 Pyridostigmine [place] 60 Mg Tablet PO 06/22/25 17:59 60 mg QID DORI Administration Sennosides 17.2 mg 06/23/24 12:00 Sennosides 8.6 Mg Tablet PO 06/23/25 11:59 DAILY@12 PRN If no BM in 2 days Sodium Chloride 0 ml 06/22/24 14:58 Sodium Chloride 0.9 % 10 Ml Syringe IV-PUSH 06/22/25 14:57 PRN PRN Flush Spironolactone 25 mg 06/23/24 09:00 06/28/24 09:08 Spironolactone 25 Mg Tablet PO 06/23/25 08:59 25 mg DAILY DORI Administration Assessment/Plan Assessment/Plan (1) Acute exacerbation of myasthenia gravis: (2) History of pulmonary embolism: (3) JAMISON on CPAP: (4) Dyspnea: (5) Generalized weakness: (6) Impaired mobility and activities of daily living: Plan 78-year-old male with past medical history as above who presents to acute inpatient rehabilitation unit with functional impairments in the setting of myasthenia gravis exacerbation. Initially admitted to ICU. Neurology consultedmanagement. Did not require IVIG this time, only increased doses of prednisone and pyridostigmine. Feeling better already, but still somewhat weak and not at his functional baseline. Does report to have been declining functionally over the last several months, leading mostly sedentary lifestyle. Does have home health therapy in place which according to the patient provides limited benefit. * Improving with therapy. Pain is better controlled. * Continue topical modalities, lidoderm patch/voltaren gel. * Ambulatory and able to do some stairs. * No respiratory issues/weakness. Patient education Pressure ulcer prophylaxis; encourage mobilization, frequent postural changes, pressure-relief techniques DVT prophylaxis Encourage deep breathing exercise incentive spirometry. Monitor [...] equipment to enhance the patient's a functional anabaptist Ensure adequate nutrition and hydration Sleep Discharge planning. Patient was personally seen by me, Dr. Grover, on the day of encounter, reviewed the history and therelevant portions of the chart, including current orders, allied health and health management consultant notes, labs/imaging and performed garcia elements of exam and I formulated the plan of care and facilitated the medical decision making. I completed a substantive portion of this encounter, the medical decision makingportion of this note in its entirety, including Allied health note review, nursing note review, health management consultant note review,discussion with nursing and case management, and more than 50% of my time was spent on counseling and coordination of care, time spent 35 minutes Documented By: Silvestre Grover MD 06/28/24 1433 Signed By: 06/28/24 1435 [facility]11-07-2024 Progress note Author Silvestre Grover [facility] Note Date/Time June 27, 2024 1 1:35am [facility] [address] [place] [address] Physiatry(Rehab) Progress Note Signed Patient: Taurus Garcia MR#: [id number] : 1945 Acct:[id number] Age/Sex: 78 / M Adm Date: 4 Loc: Room: 2K4825-6 Type: ADM IN Attending Dr: Silvestre Grover MD Copies to: ~ Date of Service: 06/27/2024 Subjective Subjective Narrative: Mr. Garcia is a 78 year old male with past medical history of myasthenia gravis diagnosed in 2017, under management of Dr. Saunders neurology, paroxysmal A-fib, CKD, hypertension, JAMISON, history of PE, who is well-known to rehab services from prior admissions, presenting to acute inpatient rehab with functional impairments in the setting of MG exacerbation. He was brought to the hospital on 06/19/2024 with worsening generalized weaknessand shortness of breath with activity over the past week or so. According to patient's though, he had been gradually declining over the last several months. Initial ER workup was notable for mild hypokalemia and hypomagnesemia, but otherwise unremarkable. Chest x-ray with chronic interstitial changes without consolidation. Neurology service was consulted. Dr. Packer recommended increasing pyridostigmine temporarily to 90 mg 4 times daily. This is to be decreased backto 60 mg as per home regimen upon rehab admission. Home steroid dose was also uptitrated to 60 mg daily for 5 days. No consideration for IVIG at this time. Pulmonary services consulted and assisted with CPAP management. Patient did undergo an echo which demonstrated an EF of 60 to 65% with mild to moderate LVH. While inpatient, he was also diuresed with furosemide due to suspected fluid overload. Patient was eventually evaluated by PT/OT who recommended acute rehab for strengthening. Interval history: Complains of new left knee pain after tweaking it on the stairs with therapy. He has ice pack in place. Some pain with ROM. Otherwise no new issues. Review of Systems Review of Systems All other systems reviewed & are negative unless noted below or in HPI Exam Physical Exam Vital Signs: Temp Pulse Resp BP Pulse Ox O2 Del Method 98.2 F 55 L 17 132/65 97 BiPAP 06/27/24 08:51 06/27/24 08:51 06/27/24 08:51 06/27/24 09:02 06/27/24 08:51 06/27/24 08:51 Narrative: Gen: Awake, oriented, cooperative. HEENT: Atraumatic, PERRL, EOMI Resp: No respiratory distress Cardio: Extremities well perfused MSK: Moves all extremities spontaneously Neuro: CN grossly intact Skin: No swelling, erythema, ecchymosis appreciated Psych: Mood and affect normal Objective Labs 06/23/24 04:55 06/26/24 05:57 Medications and Allergies Allergies and Active Meds: Allergies No Known Allergies Allergy (Verified 06/19/24 09:45) Active Medications Generic Name Dose Route Start Last Admin Trade Name Freq PRN Reason Stop Dose Admin Acetaminophen 650 mg 06/22/24 14:57 06/27/24 09:01 Acetaminophen 325 Mg Tablet PO 06/22/25 14:56 650 mg Q4H PRN Administration Pain Scale 1 - 3 or fever Al Hydrox/Mg Hydrox/Simethicone 30 ml 06/22/24 14:58 Mag Hydrox/Al Hydrox/Simeth 30 Ml Udc PO 06/22/25 14:57 Q4H PRN Indigestion Apixaban 5 mg 06/23/24 09:00 06/27/24 09:01 Apixaban 5 Mg Tablet PO 06/23/25 08:59 5 mg BID DORI Administration Ascorbic Acid 500 mg 06/23/24 09:00 06/27/24 09:01 Ascorbic Acid 500 Mg Tablet PO 06/23/25 08:59 500 mg DAILY DORI Administration Atorvastatin Calcium 20 mg 06/22/24 22:00 06/26/24 21:27 Atorvastatin 20 Mg Tablet PO 06/22/25 21:59 20 mg HS DORI Administration Bisacodyl 10 mg 06/22/24 14:58 Bisacodyl 10 Mg Supp.Rect [place] 06/22/25 14:57 DAILY PRN Constipation Diclofenac Sodium 2 gm 06/27/24 14:00 Diclofenac Sodium 1% Gel 100 Gm Tube TOPICAL 06/27/25 13:59 TID DORI Docusate Sodium 100 mg 06/22/24 14:58 Docusate 100 Mg Capsule PO 06/22/25 14:57 BID PRN Constipation Docusate Sodium 283 mg 06/22/24 14:58 Docusate Enema 283 Mg/5 Ml Enema [place] 06/22/25 14:57 DAILY PRN Constipation Fish Oil 1,000 mg 06/22/24 21:00 06/27/24 09:00 Shaniko-3/Fish Oil 1,000 Mg Capsule PO 06/22/25 20:59 1,000 mg BID DORI Administration Furosemide 20 mg 06/24/24 08:00 06/27/24 09:01 Furosemide 20 Mg Tablet PO 06/24/25 07:59 20 mg DAILY.8A DORI Administration Gabapentin 300 mg 06/22/24 21:00 06/27/24 09:01 Gabapentin 300 Mg Capsule PO 06/22/25 20:59 300 mg BID DORI Administration Hydralazine HCl 25 mg 06/22/24 21:00 06/27/24 09:01 Hydralazine 25 Mg Tablet PO 06/22/25 20:59 25 mg BID DORI Administration Lactulose 30 gm 06/22/24 14:58 Lactulose 20 Gm/30 Ml Udc PO 06/22/25 14:57 DAILY PRN Constipation Lidocaine 2 patch 06/27/24 11:30 Lidocaine 4% Adh..Patch TOPICAL 06/27/25 11:29 DAILY [facility] Lisinopril 20 mg 06/23/24 09:00 06/27/24 09:01 Lisinopril 20 Mg Tablet PO 06/23/25 08:59 20 mg DAILY DORI Administration Loratadine 10 mg 06/23/24 09:00 06/27/24 09:00 Loratadine 10 Mg Tablet PO 06/23/25 08:59 10 mg DAILY DORI Administration Multivitamins 1 tab 06/23/24 09:00 06/27/24 09:01 Multivitamin 1 Tab Tablet PO 06/23/25 08:59 1 tab DAILY DORI Administration Nebivolol 10 mg 06/23/24 09:00 06/27/24 09:01 Nebivolol 5 Mg Tablet PO 06/23/25 08:59 10 mg DAILY DORI Administration Pantoprazole Sodium 40 mg 06/22/24 21:00 06/27/24 09:02 Pantoprazole 40 Mg Tablet.Dr PO 06/22/25 20:59 40 mg BID DORI Administration Phenyleph/Shark Oil/[place] Butter 1 supp 06/22/24 14:57 Phenylephrine/[place] Butter 6.25 Mg/2211 Mg 1 Supp [place] 06/22/25 14:56 BID PRN hemorrhoids Potassium Chloride 20 meq 06/22/24 14:57 Potassium Chloride Er 20 Meq Tab.Er.Prt PO 06/22/25 14:56 DAILY PRN Hypokalemia Potassium Chloride 10 meq 06/26/24 09:00 06/27/24 09:02 Potassium Chloride Er 10 Meq Capsule.Er PO 06/26/25 08:59 10 meq DAILY DORI Administration Prednisone 15 mg 06/24/24 09:00 06/27/24 09:00 Prednisone 5 Mg Tablet PO 06/24/25 08:59 15 mg DAILY DORI Administration Pyridostigmine [place] 60 mg 06/22/24 18:00 06/27/24 09:01 Pyridostigmine [place] 60 Mg Tablet PO 06/22/25 17:59 60 mg QID DORI Administration Sennosides 17.2 mg 06/23/24 12:00 Sennosides 8.6 Mg Tablet PO 06/23/25 11:59 DAILY@12 PRN If no BM in 2 days Sodium Chloride 0 ml 06/22/24 14:58 Sodium Chloride 0.9 % 10 Ml Syringe IV-PUSH 06/22/25 14:57 PRN PRN Flush Spironolactone 25 mg 06/23/24 09:00 06/27/24 09:01 Spironolactone 25 Mg Tablet PO 06/23/25 08:59 25 mg DAILY DORI Administration Assessment/Plan Assessment/Plan (1) Acute exacerbation of myasthenia gravis: (2) History of pulmonary embolism: (3) JAMISON on CPAP: (4) Dyspnea: (5) Generalized weakness: (6) Impaired mobility and activities of daily living: Plan 78-year-old male with past medical history as above who presents to acute inpatient rehabilitation unit with functional impairments in the setting of myasthenia gravis exacerbation. Initially admitted to ICU. Neurology consultedmanagement. Did not require IVIG this time, only increased doses of prednisone and pyridostigmine. Feeling better already, but still somewhat weak and not at his functional baseline. Does report to have been declining functionally over the last several months, leading mostly sedentary lifestyle. Does have home health therapy in place which according to the patient provides limited benefit. * Improving with therapy. Add topical modalities, lidoderm patch/voltaren gel for left knee pain/strain in therapy today. * Ambulatory and able to do some stairs. * No respiratory issues. Patient education Pressure ulcer prophylaxis; encourage mobilization, frequent postural changes, pressure-relief techniques DVT prophylaxis Encourage deep breathing exercise incentive spirometry. Monitor [...] equipment to enhance the patient's a functional anabaptist Ensure adequate nutrition and hydration Sleep Discharge planning. Patient was personally seen by me, Dr. Grover, on the day of encounter, reviewed the history and the relevant portions of the chart, including current orders, allied health and health management consultant notes, labs/imaging and performed garcia elements of exam and I formulated the plan of care and facilitated the medical decision making. I completed a substantive portion of this encounter, the medical decision makingportion of this note in its entirety, including Allied health note review, nursing note review, health management consultant note review, discussion with nursing and case management, and more than 50% of my time was spent on counseling and coordination of care, time spent 35 minutes Documented By: Silvestre Grover MD 06/27/24 8041 Signed By: <Electronically signed by Silvestre Grover MD> 06/27/24 1133 [facility] Work Phone: 1(833) 955-265111-07-[address] [address] Physiatry(Rehab) Progress Note Signed Patient: Taurus Garcia MR#: [id number] : 1945 Acct:[id number] Age/Sex: 78 / M Adm Date: 4 Loc: Room: 9U5356-8 Type: ADM IN Attending Dr: Silvestre Grover MD Copies to: ~ Date of Service: 06/27/2024 Subjective Subjective Narrative: Mr. Garcia is a 78 year old male with past medical history of myasthenia gravis diagnosed in 2017, under management of Dr. Saunders neurology, paroxysmal A-fib, CKD, hypertension, JAMISON, history of PE, who is well-known to rehab services from prior admissions, presenting to acute inpatient rehab with functional impairments in the setting of MG exacerbation. He was brought to the hospital on 06/19/2024 with worsening generalized weaknessand shortness of breath with activity over the past week or so. According to patient's though, he had been gradually declining over the last several months. Initial ER workup was notable for mild hypokalemia and hyp omagnesemia, but otherwise unremarkable. Chest x-ray with chronic interstitial changes without consolidation. Neurology service was consulted. Dr. Packer recommended increasing pyridostigmine temporarily to 90mg 4 times daily. This is to be decreased backto 60 mg as per home regimen upon rehab admission. Home steroid dose was also uptitrated to 60 mg daily for 5 days. No consideration for IVIG at this time. Pulmonary services consulted and assisted with CPAP management. Patient did undergo an echo which demonstrated an EF of 60 to 65% with mild to moderate LVH. While inpatient, he was also diuresed with furosemide due to suspected fluid overload. Patient was eventually evaluated by PT/OT who recommended acute rehab for strengthening. Interval history: Complains of new left knee pain after tweaking it on the stairs with therapy. He has ice pack in place. Some pain with ROM. Otherwise no new issues. Review of Systems Review of Systems All other systems reviewed & are negative unless noted below or in HPI Exam Physical Exam Vital Signs: Temp Pulse Resp BP Pulse Ox O2 Del Method 98.2 F 55 L 17 132/65 97 BiPAP 06/27/24 08:51 06/27/24 08:51 06/27/24 08:51 06/27/24 09:02 06/27/24 08:51 06/27/24 08:51 Narrative: Gen: Awake, oriented, cooperative. HEENT: Atraumatic, PERRL, EOMI Resp: No respiratory distress Cardio: Extremities well perfused MSK: Moves all extremities spontaneously Neuro: CN grossly intact Skin: No swelling, erythema, ecchymosis appreciated Psych: Mood and affect normal Objective Labs 06/23/24 04:55 06/26/24 05:57 Medications and Allergies Allergies and Active Meds: Allergies No Known Allergies Allergy (Verified 06/19/24 09:45) Active Medications Generic Name Dose Route Start Last Admin Trade Name Freq PRN Reason Stop Dose Admin Acetaminophen 650 mg 06/22/24 14:57 06/27/24 09:01 Acetaminophen 325 Mg Tablet PO 06/22/25 14:56 650 mg Q4H PRN Administration Pain Scale 1 - 3 or fever Al Hydrox/Mg Hydrox/Simethicone 30 ml 06/22/24 14:58 Mag Hydrox/Al Hydrox/Simeth 30 Ml Udc PO 06/22/25 14:57 Q4H PRN Indigestion Apixaban 5 mg 06/23/24 09:00 06/27/24 09:01 Apixaban 5 Mg Tablet PO 06/23/25 08:59 5 mg BID DORI Administration Ascorbic Acid 500 mg 06/23/24 09:00 06/27/24 09:01 Ascorbic Acid 500 Mg Tablet PO 06/23/25 08:59 500 mg DAILY DORI Administration Atorvastatin Calcium 20 mg 06/22/24 22:00 06/26/24 21:27 Atorvastatin 20 Mg Tablet PO 06/22/25 21:59 20 mg HS DORI Administration Bisacodyl 10 mg 06/22/24 14:58 Bisacodyl 10 Mg Supp.Rect [place] 06/22/25 14:57 DAILY PRN Constipation Diclofenac Sodium 2 gm 06/27/24 14:00 Diclofenac Sodium 1% Gel 100 Gm Tube TOPICAL 06/27/25 13:59 TID DORI Docusate Sodium 100 mg 06/22/24 14:58 Docusate 100 Mg Capsule PO 06/22/25 14:57 BID PRN Constipation Docusate Sodium 283 mg 06/22/24 14:58 Docusate Enema 283 Mg/5 Ml Enema [place] 06/22/25 14:57 DAILY PRN Constipation Fish Oil 1,000 mg 06/22/24 21:00 06/27/24 09:00 Shaniko-3/Fish Oil 1,000 Mg Capsule PO 06/22/25 20:59 1,000 mg BID DORI Administration Furosemide 20 mg 06/24/24 08:00 06/27/24 09:01 Furosemide 20 Mg Tablet PO 06/24/25 07:59 20 mg DAILY.8A DORI Administration Gabapentin 300 mg 06/22/24 21:00 06/27/24 09:01 Gabapentin 300 Mg Capsule PO 06/22/25 20:59 300 mg BID DORI Administration Hydralazine HCl 25 mg 06/22/24 21:00 06/27/24 09:01 Hydralazine 25 Mg Tablet PO 06/22/25 20:59 25 mg BID DORI Administration Lactulose 30 gm 06/22/24 14:58 Lactulose 20 Gm/30 Ml Udc PO 06/22/25 14:57 DAILY PRN Constipation Lidocaine 2 patch 06/27/24 11:30 Lidocaine 4% Adh..Patch TOPICAL 06/27/25 11:29 DAILY DORI Lisinopril 20 mg 06/23/24 09:00 06/27/24 09:01 Lisinopril 20 Mg Tablet PO 06/23/25 08:59 20 mg DAILY DORI Administration Loratadine 10 mg 06/23/24 09:00 06/27/24 09:00 Loratadine 10 Mg Tablet PO 06/23/25 08:59 10 mg DAILY DORI Administration Multivitamins 1 tab 06/23/24 09:00 06/27/24 09:01 Multivitamin 1 Tab Tablet PO 06/23/25 08:59 1 tab DAILY DORI Administration Nebivolol 10 mg 06/23/24 09:00 06/27/24 09:01 Nebivolol 5 Mg Tablet PO 06/23/25 08:59 10 mg DAILY DORI Administration Pantoprazole Sodium 40 mg 06/22/24 21:00 06/27/24 09:02 Pantoprazole 40 Mg Tablet.Dr PO 06/22/25 20:59 40 mg BID DORI Administration Phenyleph/Shark Oil/[place] Butter 1 supp 06/22/24 14:57 Phenylephrine/[place] Butter 6.25 Mg/2211 Mg 1 Supp [place] 06/22/25 14:56 BID PRN hemorrhoids Potassium Chloride 20 meq 06/22/24 14:57 Potassium Chloride Er 20 Meq Tab.Er.Prt PO 06/22/25 14:56 DAILY PRN Hypokalemia Potassium Chloride 10 meq 06/26/24 09:00 06/27/24 09:02 Potassium Chloride Er 10 Meq Capsule.Er PO 06/26/25 08:59 10 meq DAILY DORI Administration Prednisone 15 mg 06/24/24 09:00 06/27/24 09:00 Prednisone 5 Mg Tablet PO 06/24/25 08:59 15 mg DAILY DORI Administration Pyridostigmine Drybranch 60 mg 06/22/24 18:00 06/27/24 09:01 Pyridostigmine [place] 60 Mg Tablet PO 06/22/25 17:59 60 mg QID DORI Administration Sennosides 17.2 mg 06/23/24 12:00 Sennosides 8.6 Mg Tablet PO 06/23/25 11:59 DAILY@12 PRN If no BM in 2 days Sodium Chloride 0 ml 06/22/24 14:58 Sodium Chloride 0.9 % 10 Ml Syringe IV-PUSH 06/22/25 14:57 PRN PRN Flush Spironolactone 25 mg 06/23/24 09:00 06/27/24 09:01 Spironolactone 25 Mg Tablet PO 06/23/25 08:59 25 mg DAILY DORI Administration Assessment/Plan Assessment/Plan (1) Acute exacerbation of myasthenia gravis: (2) History of pulmonary embolism: (3) JAMISON on CPAP: (4) Dyspnea: (5) Generalized weakness: (6) Impaired mobility and activities of daily living: Plan 78-year-old male with past medical history as above who presents to acute inpatient rehabilitation unit with functional impairments in the setting of myasthenia gravis exacerbation. Initially admitted to ICU. Neurology consultedmanagement. Did not require IVIG this time, only increased doses of prednisone and pyridostigmine. Feeling better already, but still somewhat weak and not at his functional baseline. Does report to have been declining functionally over the last several months, leading mostly sedentary lifestyle. Does have home health therapy in place which according to the patient provides limited benefit. * Improving with therapy. Add topical modalities, lidoderm patch/voltaren gel for left knee pain/strain in therapy today. * Ambulatory and able to do some stairs. * No respiratory issues. Patient education Pressure ulcer prophylaxis; encourage mobilization, frequent postural changes, pressure-relief techniques DVT prophylaxis Encourage deep breathing exercise incentive spirometry. Monitor [...] equipment to enhance the patient's a functional anabaptist Ensure adequate nutrition and hydration Sleep Discharge planning. Patient was personally seen by me, Dr. Grover, on the day of encounter, reviewed the history and therelevant portions of the chart, including current orders, allied health and health management consultant notes, labs/imaging and performed garcia elements of exam and I formulated the plan of care and facilitated the medical decision making. I completed a substantive portion of this encounter, the medical decision makingportion of this note in its entirety, including Allied health note review, nursing note review, health management consultant note review,discussion with nursing and case management, and more than 50% of my time was spent on counseling and coordination of care, time spent 35 minutes Documented By: Silvestre Grover MD 06/27/241133 Signed By: 06/27/24 1135 [facility]11-06-2024 Progress note Author Silvestre Grover [facility] Note Date/Time June 26, 2024 1 :34pm [facility] [address] [place] [address] Physiatry(Rehab) Progress Note Signed Patient: Taurus Garcia MR#: [id number] : 1945 Acct:[id number] Age/Sex: 78 / M Adm Date: 4 Loc: 5T Room: 9O0361-3 Type: ADM IN Attending Dr: Silvestre Grover MD Copies to: ~ Date of Service: 06/26/2024 Subjective Subjective Narrative: Mr. Garcia is a 78 year old male with past medical history of myasthenia gravis diagnosed in 2017, under management of Dr. Saunders neurology, paroxysmal A-fib, CKD, hypertension, JAMISON, history of PE, who is well-known to rehab services from prior admissions, presenting to acute inpatient rehab with functional impairments in the setting of MG exacerbation. He was brought to the hospital on 06/19/2024 with worsening generalized weaknessand shortness of breath with activity over the past week or so. According to patient's though, he had been gradually declining over the last several months. Initial ER workup was notable for mild hypokalemia and hypomagnesemia, but otherwise unremarkable. Chest x-ray with chronic interstitial changes without consolidation. Neurology service was consulted. Dr. Packer recommended increasing pyridostigmine temporarily to 90 mg 4 times daily. This is to be decreased backto 60 mg as per home regimen upon rehab admission. Home steroid dose was also uptitrated to 60 mg daily for 5 days. No consideration for IVIG at this time. Pulmonary services consulted and assisted with CPAP management. Patient did undergo an echo which demonstrated an EF of 60 to 65% with mild to moderate LVH. While inpatient, he was also diuresed with furosemide due to suspected fluid overload. Patient was eventually evaluated by PT/OT who recommended acute rehab for strengthening. Interval history: Complains of some right hip pain, improved with range of motion and stretching with therapy. Review of Systems Review of Systems All other systems reviewed & are negative unless noted below or in HPI Exam Physical Exam Vital Signs: Temp Pulse Resp BP Pulse Ox O2 Del Method 98.2 F 56 L 18 103/66 93 L Room Air 06/26/24 06:05 06/26/24 08:32 06/26/24 06:05 06/26/24 10:22 06/26/24 08:32 06/26/24 08:32 Narrative: Gen: Awake, oriented, cooperative. HEENT: Atraumatic, PERRL, EOMI Resp: No respiratory distress Cardio: Extremities well perfused MSK: Moves all extremities spontaneously Neuro: CN grossly intact Skin: No swelling, erythema, ecchymosis appreciated Psych: Mood and affect normal Objective Labs 06/23/24 04:55 06/26/24 05:57 Labs: Laboratory Results - last 24 hr 06/26/24 05:57 PHA Creatinine Clear 64.44 Sodium 142 Potassium 3.2 L Chloride 102 Carbon Dioxide 32.9 H Anion Gap 10.3 BUN 30 H Creatinine 1.26 Est GFR (CKD-EPI) 57.657 Glucose 97 Calcium 8.6 Medications and Allergies Allergies and Active Meds: Allergies No Known Allergies Allergy (Verified 06/19/24 09:45) Active Medications Generic Name Dose Route Start Last Admin Trade Name Jana PRN Reason Stop Dose Admin Acetaminophen 650 mg 06/22/24 14:57 06/26/24 10:18 Acetaminophen 325 Mg Tablet PO 06/22/25 14:56 650 mg Q4H PRN Administration Pain Scale 1 - 3 or fever Al Hydrox/Mg Hydrox/Simethicone 30 ml 06/22/24 14:58 Mag Hydrox/Al Hydrox/Simeth 30 Ml Udc PO 06/22/25 14:57 Q4H PRN Indigestion Apixaban 5 mg 06/23/24 09:00 06/26/24 08:26 Apixaban 5 Mg Tablet PO 06/23/25 08:59 5 mg BID DORI Administration Ascorbic Acid 500 mg 06/23/24 09:00 06/26/24 08:27 Ascorbic Acid 500 Mg Tablet PO 06/23/25 08:59 500 mg DAILY DORI Administration Atorvastatin Calcium 20 mg 06/22/24 22:00 06/25/24 21:21 Atorvastatin 20 Mg Tablet PO 06/22/25 21:59 20 mg HS DORI Administration Bisacodyl 10 mg 06/22/24 14:58 Bisacodyl 10 Mg Supp.Rect [place] 06/22/25 14:57 DAILY PRN Constipation Docusate Sodium 100 mg 06/22/24 14:58 Docusate 100 Mg Capsule PO 06/22/25 14:57 BID PRN Constipation Docusate Sodium 283 mg 06/22/24 14:58 Docusate Enema 283 Mg/5 Ml Enema [place] 06/22/25 14:57 DAILY PRN Constipation Fish Oil 1,000 mg 06/22/24 21:00 06/26/24 08:26 Shaniko-3/Fish Oil 1,000 Mg Capsule PO 06/22/25 20:59 1,000 mg BID DORI Administration Furosemide 20 mg 06/24/24 08:00 06/26/24 08:26 Furosemide 20 Mg Tablet PO 06/24/25 07:59 20 mg DAILY.8A DORI Administration Gabapentin 300 mg 06/22/24 21:00 06/26/24 08:26 Gabapentin 300 Mg Capsule PO 06/22/25 20:59 300 mg BID DORI Administration Hydralazine HCl 25 mg 06/22/24 21:00 06/26/24 08:26 Hydralazine 25 Mg Tablet PO 06/22/25 20:59 25 mg BID DORI Administration Lactulose 30 gm 06/22/24 14:58 Lactulose 20 Gm/30 Ml Udc PO 06/22/25 14:57 DAILY PRN Constipation Lisinopril 20 mg 06/23/24 09:00 06/26/24 10:18 Lisinopril 20 Mg Tablet PO 06/23/25 08:59 Not Given DAILY DORI Loratadine 10 mg 06/23/24 09:00 06/26/24 08:26 Loratadine 10 Mg Tablet PO 06/23/25 08:59 10 mg DAILY DORI Administration Multivitamins 1 tab 06/23/24 09:00 06/26/24 08:27 Multivitamin 1 Tab Tablet PO 06/23/25 08:59 1 tab DAILY DORI Administration Nebivolol 10 mg 06/23/24 09:00 06/26/24 08:26 Nebivolol 5 Mg Tablet PO 06/23/25 08:59 10 mg DAILY DORI Administration Pantoprazole Sodium 40 mg 06/22/24 21:00 06/26/24 08:26 Pantoprazole 40 Mg Tablet.Dr PO 06/22/25 20:59 40 mg BID DORI Administration Phenyleph/Shark Oil/[place] Butter 1 supp 06/22/24 14:57 Phenylephrine/[place] Butter 6.25 Mg/2211 Mg 1 Supp [place] 06/22/25 14:56 BID PRN hemorrhoids Potassium Chloride 20 meq 06/22/24 14:57 Potassium Chloride Er 20 Meq Tab.Er.Prt PO 06/22/25 14:56 DAILY PRN Hypokalemia Potassium Chloride 10 meq 06/26/24 09:00 06/26/24 08:26 Potassium Chloride Er 10 Meq Capsule.Er PO 06/26/25 08:59 10 meq DAILY DORI Administration Prednisone 15 mg 06/24/24 09:00 06/26/24 08:26 Prednisone 5 Mg Tablet PO 06/24/25 08:59 15 mg DAILY DORI Administration Pyridostigmine Drybranch 60 mg 06/22/24 18:00 06/26/24 08:26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 kufhrzph-jje-smxiw acid 0.4 mg-lycopene 300 mcg-lutein 250 mcg tablet (Adults 50Plus) 1 tab PO DAILY 12/27/17 [History Confirmed 06/19/24] omega-3 fatty acids-fish oil 360 mg-1,200 mg capsule (Fish Oil) 1 cap PO BID 12/27/17 [History Confirmed 06/19/24] simvastatin 40 mg tablet 40 mg PO HS 12/27/17 [History Confirmed 06/19/24] furosemide 20 mg tablet 20 mg PO DAILY 05/10/23 [History Confirmed 06/19/24] nebivolol 10 mg tablet 10 mg PO DAILY 05/10/23 [History Confirmed 06/19/24] apixaban 5 mg tablet (Eliquis) 5 mg PO Q12H #0 tabs 06/09/23 [Rx Confirmed 06/19/24] potassium chloride 10 mEq tablet,extended release(part/cryst) 10 meq PO DAILY 30days #30 tabs 06/09/23 [Rx Confirmed 06/19/24] prednisone 10 mg tablet 10 mg PO DAILY 30 days #30 tabs 06/09/23 [Rx Confirmed 06/19/24] pyridostigmine bromide 60 mg tablet 1 tab PO QID 30 days #120 tabs 06/09/23 [Rx Confirmed 06/19/24] triamterene 37.5 mg-hydrochlorothiazide 25 mg tablet (Maxzide-25mg) 1 tab PO DAILY 30 days #30 tabs 06/09/23 [Rx Confirmed 06/19/24] gabapentin 300 mg capsule 300 mg PO BID 06/19/24 [History Confirmed 06/19/24] hydrocodone 5 mg-acetaminophen 325 mg tablet 1 tab PO DAILY PRN pain 06/19/24 [History Confirmed 06/19/24] Exam Physical Exam Vital Signs: Temp Pulse Resp BP Pulse Ox O2 Del Method FiO2 97.9 F 61 16 114/66 92 L Room Air 21 06/21/24 11:29 06/21/24 11:29 06/21/24 11:29 06/21/24 11:29 06/21/24 11:29 06/21/24 11:29 06/19/24 23:54 Narrative: Gen: Awake, oriented, cooperative. Appears alert HEENT: Atraumatic, drooping eyelids Resp: shortness of breath noted Cardio: Lower Extremities with edema MSK: limited ROM in LE especially left, sitting down in chair, no open wounds noted, peripheral sensation/pulses intact Neuro: CN grossly intact Skin: Swelling but no erythema, ecchymosis appreciated Psych: Mood and affect normal Results - Phys. Rehab Labs Labs: Laboratory Results - last 24 hr 06/21/24 05:41 Corrected WBC 11.8 H Uncorrected WBC Count 11.8 H RBC 4.43 Hgb 13.7 Hct 40.8 MCV 92.0 MCH 31.0 MCHC 33.7 RDW 15.0 H Plt Count 199 MPV 8.4 Neut % (Auto) 81.8 Lymph % (Auto) 8.9 [place] % (Auto) 9.1 Eos % (Auto) 0.0 Baso % (Auto) 0.2 Nucleat RBC Rel Count 0.1 Neut # (Auto) 9.6 H Lymph # (Auto) 1.0 [place] # (Auto) 1.1 H Eos # (Auto) 0.0 Baso # (Auto) 0.0 PHA Creatinine Clear 53.97 Sodium 140 Potassium 3.4 L Chloride 97 L Carbon Dioxide 34.3 H Anion Gap 12.1 BUN 35 H Creatinine 1.51 H Est GFR (CKD-EPI) 46.401 Glucose 133 H Calcium 9.2 Magnesium 1.8 L Assessment/Plan (1) Acute exacerbation of myasthenia gravis: (2) History of pulmonary embolism: (3) JAMISON on CPAP: (4) Generalized weakness: (5) Dyspnea: (6) Acute hypokalemia: Plan Mr. Garcia is a 78 year old male with a past history of myasthenia gravis treated with pyridostigmine and prednisone, pulmonary emboli, hypertension, and bladder cancer presented to emergency department on 06/19/2024 with generalized weakness and worsening shortness of breath which was confirmed to be a myasthenia exacerbation. -Inpatient rehabilitation would be a viable option for patient; patient is agreeable to this and stated that last stay was very helpful for him. -OK to admit to the rehab unit when medically stable -Patient currently below his normal baseline and has significant problems with mobility and performing ADLs. Patient was personally seen by me, Dr. Bennett, on the day of encounter, reviewed the history and the relevant portions of the chart, including current orders, allied health and health management consultant notes, labs/imaging and performed garcia elements of exam and I formulated the plan of care and facilitated the medical decision making. I completed a substantive portion of this encounter, the medical decision makingportion of this note in its entirety, including Allied health note review, nursing note review, health management consultant note review, discussion with nursing and case management, and more than 50% of my time was spent on counseling and coordination of care, time spent 60 minutes Documented By: Fidel Bennett MD [id number] Signed By: <Electronically signed by Fidel Bennett MD> 06/21/24 145 [facility] Work Phone: 1(421) 669-451311-01-2024 Progress note Author Jamel Packer [facility] June 21, 2024 2:12pm Note Date/Time June 21, 2024 2 :12pm [facility] [address] [place] [address] Neurology Progress Note Signed Patient: Taurus Garcia MR#: [id number] : 1945 Acct:[id number] Age/Sex: 78 / M Adm Date: 4 Loc: Room: [address] [place] [address] Type: ADM IN Attending Dr: Mateo Horne DO Copies to: ~ Date of Service: 06/21/2024 Exam Physical Exam Vital Signs: Temp Pulse Resp BP Pulse Ox O2 Del Method FiO2 97.9 F 61 16 114/66 92 L Room Air 21 06/21/24 11:29 06/21/24 11:29 06/21/24 11:29 06/21/24 11:29 06/21/24 11:29 06/21/24 11:29 06/19/24 23:54 Objective Vital Signs Vital Signs: Vital Signs - 24 hr 06/20/24 16:15 06/20/24 20:00 06/20/24 20:00 Temperature 98.9 F 98.2 F Pulse Rate 64 66 Respiratory Rate 20 20 Blood Pressure 113/68 134/79 02 Sat by Pulse Oximetry 94 L 92 L Oxygen Delivery Method Room Air Room Air Room Air 06/21/24 00:00 06/21/24 04:00 06/21/24 08:33 Temperature Pulse Rate 67 66 Respiratory Rate Blood Pressure 02 Sat by Pulse Oximetry 93 L 93 L Oxygen Delivery Method Room Air Room Air Room Air 06/21/24 08:33 06/21/24 11:29 Temperature 98.2 F 97.9 F Pulse Rate 65 61 Respiratory Rate 18 16 Blood Pressure 110/78 114/66 02 Sat by Pulse Oximetry 97 92 L Oxygen Delivery Method Room Air Room Air Labs 06/21/24 05:41 06/21/24 05:41 Therapy Recommendations Therapy Recommendations: OT Recommendations OT Recommended Discharge Inpatient Rehab Unit Location OT Recommended Services at Physical Therapy,Occupational Therapy Discharge PT Recommendations PT Recommended Discharge Inpatient Rehab Unit Location PT Recommended Services at Physical Therapy,Occupational Therapy Discharge ST Recommendations Liquid Consistency Thin Liquids Recommendation Solid Consistency Regular Solids Recommendations Meat Consistency Whole Meats Recommendations Medication Administration Whole Pills ST Recommended Services at Speech Therapy,13/03 Supervision Discharge Assessment/Plan (1) Acute exacerbation of myasthenia gravis: Plan CONSULT REASON: Weakness, myasthenia gravis INTERIM: Continues to be doing okay. Respiratory parameters continue to look strong. Negative inspiratory force consistently 60. Vital capacity around 2. EXAMINATION: In no distress. No deformities or trauma. Limbs are warm. Some edematous changes to distal lower extremities. Normal work of breathing. Visualized skinis generally intact and without concerning lesions lesions. Affect normal. Patient is alert. Attention normal. Speech is fluent and nondysarthric. He can complete full sentences without taking a breath. Pupils are equal and constricted. Right visual acuity is little more than finger counting. Left visual acuity is okay. Ocular motility is full. No nystagmus. Facial sensation is normal. Hearing is normal. Facial strength is normal aside from some intermittently noticed mild right upper eyelid ptosis. Tongue is midline. Muscle bulk and tone seem normal. Muscle strength graded as normal in the upperextremities. No limb drift in upper extremities. Diffusely weak in bilateral lower extremities, especially proximally, with hip flexion +3/5 bilaterally, butotherwise +4/5 throughout the legs. He has some tremors visible in the upper trunk. Reflexes trace throughout. Light touch is normal. No limb ataxia. DATA REVIEW: -MRI brain from back in February 2018 showed mild chronic small vessel ischemic changes and nothing overly concerning ASSESSMENT: 78-year-old man with myasthenia gravis here for evaluation of acute on chronic weakness and some dyspnea on exertion. Other potential causes for the dyspnea are somewhat ruled out, so there is concern for myasthenia gravis exacerbation. He has been consistently performing quite well with his respiratory parameters. Does not yet meet criteria for myasthenic crisis, which I hope has successfully been avoided here. PLAN: 1. I have increased his home pyridostigmine 60 mg 4 times daily to 90 mg 4 times daily, which is temporary. When he gets discharged to home or to rehabilitation I would drop it back down to the 60 mg dose. Even that is not well-tolerated due to frequent loose stools and hand cramping at home. 2. We have increased his home prednisone 10 mg daily to 60 mg daily for 5 totaldays. We will have to monitor his hypertension and hyperglycemia. 3. Needs to occasionally have respiratory parameters measured. 4. It does not look like we are going to need to consider IVIG. 5. Okay for discharge to rehabilitation whenever Documented By: Jamel Packer DO 06/21/241409 Signed By: <Electronically signed by Jamel Packer DO> 06/21/24 1412 [facility] Work Phone: 1(659) 252-285011-01-2024 Progress note Author Mateo Horne [facility] June 21, 2024 2:09pm Note Date/Time June 21, 2024 2 :03pm [facility] [address] [place] [address] Hospitalist Progress Note Signed Patient: Taurus Garcia MR#: [id number] : 1945 Acct:[id number] Age/Sex: 78 / M Adm Date: 4 Loc: Room: [address] [place] [address] Type: ADM IN Attending Dr: Mateo Horne DO Copies to: ~ Date of Service: 06/21/2024 Subjective Subjective Narrative: When I rounded on this patient he is walking out of the bathroom and to his bedside chair. He does this pretty well. At the last moment when he needs to do 180 degree turn in front of the chair he went to fast and became unsteady. But he was able to use his arms to help him sit down. His strength certainly looks much better than when I met him in the emergency room. He is having loosestools. He had about 2 loose stools today so far. No abdominal pain. Appetiteis good. He does notice the brisk diuresis. He is getting some hand cramping from the Lasix. Otherwise review of systems is negative. No headache. No lightheadedness. No dizziness. No visual abnormalities. No double vision. Exam Physical Exam Vital Signs: Temp Pulse Resp BP Pulse Ox O2 Del Method FiO2 97.9 F 61 16 114/66 92 L Room Air 21 06/21/24 11:29 06/21/24 11:29 06/21/24 11:29 06/21/24 11:29 06/21/24 11:06/21/24 11:06/19/24 23:54 Narrative: GEN: Awake, alert, oriented x 3. Mild tremor to his head and neck while he is sitting upright in bed. Lungs: Clear to auscultation bilaterally, no wheezing, no crackles. He could be diminished in the bases and is hard to hear because his BMI is 48. Heart: Mildly bradycardic but with a regular rate and rhythm, no murmurs, rubs, or gallops. Abdomen: Very protuberant. To palpation this is entirely soft, normal bowel sounds, no rigidity, guarding, or acute peritoneal signs. Extremities: massive longstanding 3+ edema from above his knees down to his toes bilaterally. The lower extremity edema does look to be a little bit better. Objective Lab Results 06/21/24 05:41 06/21/24 05:41 Meds Allergies and Active Meds Allergies No Known Allergies Allergy (Verified 06/19/24 09:45) Active Meds: Active Medications Generic Name Dose Route Start Last Admin Trade Name Freq PRN Reason Stop Dose Admin Acetaminophen 650 mg 06/19/24 14:21 Acetaminophen 325 Mg Tablet PO 06/19/25 14:20 Q4H PRN Pain Scale 1 - 3 or fever Apixaban 5 mg 06/19/24 15:00 06/21/24 08:14 Apixaban 5 Mg Tablet PO 06/19/25 14:59 5 mg BID DORI Administration Ascorbic Acid 1,000 mg 06/21/24 13:59 Ascorbic Acid 500 Mg Tablet PO 06/21/24 14:00 ONCE ONE Atorvastatin Calcium 20 mg 06/19/24 22:00 06/20/24 21:47 Atorvastatin 20 Mg Tablet PO 06/19/25 21:59 20 mg HS DORI Administration Furosemide 60 mg 06/22/24 08:00 Furosemide 100 Mg/10 Ml Vial IV-PUSH 06/22/25 07:59 DAILY.8A DORI Gabapentin 300 mg 06/19/24 21:00 06/21/24 08:14 Gabapentin 300 Mg Capsule PO 06/19/25 20:59 300 mg BID DORI Administration Hydralazine HCl 50 mg 06/19/24 21:00 06/21/24 08:14 Hydralazine 50 Mg Tablet PO 06/19/25 20:59 50 mg BID DORI Administration Hydralazine HCl 25 mg 06/21/24 21:00 Hydralazine 25 Mg Tablet PO 06/21/25 20:59 BID DORI Lisinopril 20 mg 06/20/24 09:00 06/21/24 08:14 Lisinopril 20 Mg Tablet PO 06/20/25 08:59 20 mg DAILY DORI Administration Loratadine 10 mg 06/20/24 09:00 06/21/24 08:14 Loratadine 10 Mg Tablet PO 06/20/25 08:59 10 mg DAILY DORI Administration Nebivolol 10 mg 06/20/24 09:00 06/21/24 08:14 Nebivolol 5 Mg Tablet PO 06/20/25 08:59 10 mg DAILY DORI Administration Pantoprazole Sodium 40 mg 06/19/24 21:00 06/21/24 08:14 Pantoprazole 40 Mg Tablet.Dr PO 06/19/25 20:59 40 mg BID DORI Administration Phenyleph/Shark Oil/[place] Butter 1 supp 06/19/24 21:00 Phenylephrine/[place] Butter 6.25 Mg/2211 Mg 1 Supp [place] 06/19/25 20:59 BID PRN hemorrhoids Potassium Chloride 20 meq 06/19/24 14:21 Potassium Chloride Er 20 Meq Tab.Er.Prt PO 06/19/25 14:20 DAILY PRN Hypokalemia Potassium Chloride 40 meq 06/19/24 14:21 Potassium Chloride Er 20 Meq Tab.Er.Prt PO 06/19/25 14:20 DAILY PRN Hypokalemia Potassium Chloride 10 meq 06/20/24 09:00 06/21/24 08:14 Potassium Chloride Er 10 Meq Tablet.Er PO 06/20/25 08:59 10 meq DAILY DORI Administration Potassium Chloride 10 meq 06/20/24 17:00 06/21/24 12:21 Potassium Chloride Er 10 Meq Tablet.Er PO 06/20/25 16:59 10 meq TID.WITH.MEALS DORI Administration Prednisone 60 mg 06/19/24 14:20 06/21/24 08:15 Prednisone 20 Mg Tablet PO 06/23/24 09:01 60 mg DAILY DORI Administration Pyridostigmine [place] 90 mg 06/19/24 18:00 06/21/24 08:15 Pyridostigmine [place] 60 Mg Tablet PO 06/19/25 17:59 90 mg QID DORI Administration Sodium Chloride 0 ml 06/19/24 09:44 06/20/24 14:34 Sodium Chloride 0.9 % 10 Ml Syringe IV-PUSH 06/19/25 09:43 10 ml PRN PRN Administration Flush Spironolactone 25 mg 06/19/24 18:00 06/21/24 08:14 Spironolactone 25 Mg Tablet PO 06/19/25 17:59 25 mg DAILY DORI Administration A&P - Hospitalist Assessment/Plan (1) Myasthenia gravis: (2) Generalized weakness: (3) Obstructive sleep apnea: (4) Impaired mobility and activities of daily living: (5) Hypertension: (6) Hyperlipidemia: (7) Atrial fibrillation: (8) Dyspnea: Plan Assessment: Acute exacerbation of myasthenia gravis, with risk of development of impending severe myasthenia gravis crisis. -Patient was intubated for several for an acute myasthenia gravis crisis a little bit more than 1 year ago. Chronic prednisone use. Home dose is 15 mg daily. Elevated blood pressure. Massive lower extremity edema. History of atrial fibrillation - when critically ill and on the ventilator. Obstructive sleep apnea. Clinical parents of obesity hypoventilation and at risk for overlap combination of JAMISON and OHS. History of pulmonary embolus. Chronic anticoagulation with Eliquis. Mild hypokalemia. Plan: Continue to care for the patient ICU for close monitoring of his respiratory status. To support his respiration he should use BiPAP or his home CPAP at nighttime. I believe the patient's leg edema and elevated blood pressure to be problematic and parts representative of advancement of his chronic disease state. He weighs about10 kg more than he did a year ago, and I think most of that is anasarca type edema. He seems to be responding to IV lasix. Given his prostate problems continue to utilize a male PureWick to help collecturine while we are diuresing him with Lasix. Check weights daily. Lowest possible sodium diet. Echocardiogram shows preserved left ventricular function. I suspect the patient has anasarca and increased total body edema due to the combination of obstructive sleep apnea, body mass index of 47, and chronic prednisone use. So far on diuresis his weight has decreased by about 7 pounds. I will decrease his Lasix from every 6 hours, which was yesterday to twice daily which has been today down to 1 time daily starting tomorrow. Documented By: Mateo Horne DO [id number] Signed By: <Electronically signed by Mateo Horne DO> 06/21/24 3192 [facility] Work Phone: 1([phone]) 147-242011-01-2024 Progress note Author Abi Biswas [facility] June 21, 2024 10:32am Note Date/Time June 21, 2024 1 0:32am [facility] [address] [place] [address] Pulmonology Progress Note Signed Patient: Taurus Garcia MR#: [id number] : 1945 Acct:[id number] Age/Sex: 78 / M Adm Date: 4 Loc: 3T Room: [address] [place] [address] Type: ADM IN Attending Dr: Mateo Horne DO Copies to: ~ Date of Service: 06/21/2024 Subjective Subjective Narrative: - transferred out of ICU to floor yesterday, wore his home CPAP all night - NIF -60 this AM, VC 2.0 - feeling overall better feels strength has improved but not back to baseline yet Exam Physical Exam Vital Signs: Temp Pulse Resp BP Pulse Ox O2 Del Method FiO2 98.2 F 65 18 110/78 97 Room Air 21 06/21/24 08:33 06/21/24 08:33 06/21/24 08:33 06/21/24 08:33 06/21/24 08:33 06/21/24 08:33 06/19/24 23:54 Const Other: Gen: Chronically ill appearing not in respiratory distress HENT: EOMI PERRL no thrush Neck: supple no JVD CVS: RRR -m/r/g Lungs: Clear bilaterally Abd: soft non tender Ext: +LE edema good cap refill Neuro: AOx3 weak LE but non focal Objective Intake and Output I&O - Last 24 Hours: Intake & Output 06/20/24 06/21/24 06/21/24 23:59 07:59 15:59 Intake Total 550 / 900 120 / 120 Output Total 570 / 1920 1100 / 1100 Balance -20 / -1020 120 / -980 -1100 / -980 Weight 141.9 kg Labs 06/21/24 05:41 06/21/24 05:41 Assessment/Plan Assessment/Plan (1) Acute exacerbation of myasthenia gravis: (2) Dyspnea: (3) Generalized weakness: (4) JAMISON on CPAP: (5) History of pulmonary embolism: Plan - respiratory status appears to be stable with improved NIF and stable VC - wore his home CPAP all night, had a good nights sleep, continue - rest of mgmt per neuro and hospitalist - will sign off pls call with questions Documented By: Abi Biswas MD [id number] Signed By: <Electronically signed by Abi Biswas MD> 06/21/24 1032 [facility] Work Phone: 1(641) 673-625210-31-2024 Progress note Author Jamel Packer [facility] June 20, 2024 2:46pm Note Date/Time June 20, 2024 2 :46pm [facility] [address] [place] [address] Neurology Progress Note Signed Patient: Taurus Garcia MR#: [id number] : 1945 Acct:[id number] Age/Sex: 78 / M Adm Date: 4 Loc: Room: [address] [place] [address] Type: ADM IN Attending Dr: Mateo Horne DO Copies to: ~ Date of Service: 06/20/2024 Exam Physical Exam Vital Signs: Temp Pulse Resp BP Pulse Ox O2 Del Method FiO2 99 F 73 18 95/52 L 96 Room Air 21 06/20/24 12:00 06/20/24 14:00 06/20/24 14:00 06/20/24 14:00 06/20/24 13:00 06/20/24 14:00 06/19/24 23:54 Objective Vital Signs Vital Signs: Vital Signs - 24 hr 06/19/24 15:00 06/19/24 15:54 06/19/24 16:00 Temperature 98.1 F Pulse Rate 61 64 Respiratory Rate 16 18 Blood Pressure 156/65 H 166/69 H 02 Sat by Pulse Oximetry 94 L 95 Oxygen Delivery Method Room Air Room Air Room Air Fraction of Inspired Oxygen 06/19/24 17:00 06/19/24 18:00 06/19/24 19:00 Temperature Pulse Rate 66 63 61 Respiratory Rate 18 16 16 Blood Pressure 161/67 H 111/62 175/77 H 02 Sat by Pulse Oximetry 96 92 L 93 L Oxygen Delivery Method Room Air Room Air Room Air Fraction of Inspired Oxygen 06/19/24 20:00 06/19/24 20:00 06/19/24 21:00 Temperature 98.4 F Pulse Rate 59 L 63 Respiratory Rate 16 18 Blood Pressure 160/66 H 149/65 H 02 Sat by Pulse Oximetry 93 L 94 L Oxygen Delivery Method Room Air Room Air Room Air Fraction of Inspired Oxygen 06/19/24 22:00 06/19/24 23:00 06/19/24 23:54 Temperature Pulse Rate 69 64 52 L Respiratory Rate 16 14 16 Blood Pressure 132/60 105/62 02 Sat by Pulse Oximetry 93 L 96 94 L Oxygen Delivery Method Room Air Room Air Fraction of Inspired Oxygen 21 06/20/24 00:00 06/20/24 01:00 06/20/24 02:00 Temperature 98.2 F Pulse Rate 57 L 60 52 L Respiratory Rate 14 16 16 Blood Pressure 111/69 111/59 L 108/54 L 02 Sat by Pulse Oximetry 92 L 93 L 94 L Oxygen Delivery Method BiPAP BiPAP BiPAP Fraction of Inspired Oxygen 06/20/24 03:00 06/20/24 04:00 06/20/24 05:00 Temperature 98.0 F Pulse Rate 56 L 54 L 55 L Respiratory Rate 14 16 16 Blood Pressure 113/54 L 119/56 L 138/64 02 Sat by Pulse Oximetry 94 L 93 L 95 Oxygen Delivery Method BiPAP Room Air Room Air Fraction of Inspired Oxygen 06/20/24 06:00 06/20/24 07:00 06/20/24 08:00 Temperature Pulse Rate 54 L 53 L 53 L Respiratory Rate 14 14 17 Blood Pressure 137/61 155/69 H 157/67 H 02 Sat by Pulse Oximetry 95 94 L 92 L Oxygen Delivery Method Room Air Room Air Room Air Fraction of Inspired Oxygen 06/20/24 08:00 06/20/24 09:00 06/20/24 10:20 Temperature 98.1 F Pulse Rate 70 80 Respiratory Rate 17 17 Blood Pressure 186/82 H 123/58 L 02 Sat by Pulse Oximetry 95 95 Oxygen Delivery Method Room Air Room Air Room Air Fraction of Inspired Oxygen 06/20/24 11:00 06/20/24 12:00 06/20/24 13:00 Temperature 99 F Pulse Rate 82 69 69 Respiratory Rate 17 18 20 Blood Pressure 125/58 L 110/59 L 112/56 L 02 Sat by Pulse Oximetry 93 L 93 L 96 Oxygen Delivery Method Room Air Room Air Room Air Fraction of Inspired Oxygen 06/20/24 14:00 Temperature Pulse Rate 73 Respiratory Rate 18 Blood Pressure 95/52 L 02 Sat by Pulse Oximetry Oxygen Delivery Method Room Air Fraction of Inspired Oxygen Labs 06/20/24 04:27 06/20/24 04:27 Lab Results: 06/20/24 04:27: Hemoglobin A1c 6.8 H Therapy Recommendations Therapy Recommendations: PT Recommendations PT Recommended Discharge Inpatient Rehab Unit Location PT Recommended Services at Physical Therapy,Occupational Therapy Discharge ST Recommendations ST Recommended Services at Speech Therapy,13/03 Supervision Discharge Assessment/Plan (1) Acute exacerbation of myasthenia gravis: Plan CONSULT REASON: Weakness, myasthenia gravis INTERIM: He feels like he is breathing a little bit better today and feels just a little bit stronger. Certainly not worse. He is up and out of bed and into chair and breathing room air. Overnight last night he did not have his home CPAP machine but did use BiPAP for something like 6 hours. He says he feels like he still has loose stools but it is not worse than it is at home. I think the loose stools at home are more of a problem that he leads on, as he mentions that he has had some bowel incontinence at times when things come on strong and he cannot get to the toilet quick enough. EXAMINATION: In no distress. No deformities or trauma. Limbs are warm. Some edematous changes to distal lower extremities. Normal work of breathing. Visualized skinis generally intact and without concerning lesions lesions. Affect normal. Patient is alert. Attention normal. Speech is fluent and nondysarthric. He can complete full sentences without taking a breath. Pupils are equal and constricted. Right visual acuity is little more than finger counting. Left visual acuity is okay. Ocular motility is full. No nystagmus. Facial sensation is normal. Hearing is normal. Facial strength is normal aside from some intermittently noticed mild right upper eyelid ptosis. Tongue is midline. Muscle bulk and tone seem normal. Muscle strength graded as normal in the upperextremities. No limb drift in upper extremities. Diffusely weak in bilateral lower extremities, especially proximally, with hip flexion +3/5 bilaterally, butotherwise +4/5 throughout the legs. He has some tremors visible in the upper trunk. Reflexes trace throughout. Light touch is normal. No limb ataxia. DATA REVIEW: -MRI brain from back in February 2018 showed mild chronic small vessel ischemic changes and nothing overly concerning ASSESSMENT: 78-year-old man with myasthenia gravis here for evaluation of acute on chronic weakness and some dyspnea on exertion. Other potential causes for the dyspnea are somewhat ruled out, so there is concern for myasthenia gravis exacerbation. He performed pretty well with his respiratory parameters. Does not yet meet criteria for myasthenic crisis, which can hopefully be avoided. PLAN: 1. I have increased his home pyridostigmine 60 mg 4 times daily to 90 mg 4 times daily, which is temporary. When he gets discharged to home or to rehabilitation I would drop it back down to the 60 mg dose. Even that is not well-tolerated due to frequent loose stools at home. 2. Increasing his home prednisone 10 mg daily to 60 mg daily for 5 total days. We will have to monitor his hypertension and hyperglycemia. 3. Needs to occasionally have respiratory parameters measured. His respiratorystatus seems stable. Okay for transfer to floor from my standpoint. 4. It is looking like we are not going to need to consider IVIG. 5. Further recommendations to follow Documented By: Jamel Packer DO 06/20/24 8927 Signed By: <Electronically signed by Jamel Packer DO> 06/20/24 4283 [facility] Work Phone: 1([phone]) 411-274210-31-2024 Progress note Author Abi Biswas [facility] June 20, 2024 2:38pm Note Date/Time June 20, 2024 2 :34pm [facility] [address] [place], [place] [id number] Pulmonology Progress Note Signed Patient: Taurus Garcia MR#: [id number] : 1945 Acct:[id number] Age/Sex: 78 / M Adm Date: 4 Loc: Room: [address] [place] [address] Type: ADM IN Attending Dr: Mateo Horne DO Copies to: ~ Date of Service: 06/20/2024 Subjective Subjective Narrative: - clinically stable and feels better this AM - latest NIF -50 VC 2.2 - wore our CPAP most of the night, will wear his CPAP tonight Exam Physical Exam Vital Signs: Temp Pulse Resp BP Pulse Ox O2 Del Method FiO2 99 F 73 18 95/52 L 96 Room Air 21 06/20/24 12:00 06/20/24 14:00 06/20/24 14:00 06/20/24 14:00 06/20/24 13:00 06/20/24 14:00 06/19/24 23:54 Const Other: Gen: Chronically ill appearing not in respiratory distress HENT: EOMI PERRL no thrush Neck: supple no JVD CVS: RRR -m/r/g Lungs: Clear bilaterally Abd: soft non tender Ext: +LE edema good cap refill Neuro: AOx3 weak LE but non focal Objective Intake and Output I&O - Last 24 Hours: Intake & Output 06/19/24 06/20/24 06/20/24 23:59 07:59 15:59 Intake Total 450 / 450 Output Total 1350 / 1350 850 / 850 Balance -900 / -900 -850 / -850 Weight 144.1 kg Labs 06/20/24 04:27 06/20/24 04:27 Assessment/Plan Assessment/Plan (1) Acute exacerbation of myasthenia gravis: (2) Dyspnea: (3) Generalized weakness: (4) JAMISON on CPAP: (5) History of pulmonary embolism: Plan - continue serial NIF and VC checks for now, hold off on ABG as his shortness ofbreath is stable - continue home CPAP qhs and prn - defer to neuro on MG treatment - agree with diuresis - will follow while in ICU Documented By: Abi Biswas MD [id number] Signed By: <Electronically signed by Abi Biswas MD> 06/20/24 1430 [facility] Work Phone: 1(455) 708-926410-31-2024 Progress note Author Mateo Horne [facility] June 20, 2024 9:47am Note Date/Time June 20, 2024 9 :47am [facility] [address] [place] [address] Hospitalist Progress Note Signed Patient: Taurus Garcia MR#: [id number] : 1945 Acct:[id number] Age/Sex: 78 / M Adm Date: 4 Loc: Room: [address] [place] [address] Type: ADM IN Attending Dr: Mateo Horne DO Copies to: ~ Date of Service: 06/20/2024 Subjective Subjective Narrative: The overnight report is that the patient did well. In the ICU he did not have access to his home CPAP machine, but he did wear the hospital BiPAP for about 5 hours. Blood pressures remain moderately elevated. The patient has had a good urine output with diuresis with Lasix. He has been having some loose bowel movements. He told the nurses that he normally has loose bowel movements at home. He thinks that the reason that he got some bleeding from his hemorrhoids yesterday. This morning physical therapy did work with him. They got him out of bed into the bedside chair. The patient denies shortness of breath. He denies any specific weakness in his arms or his legs. We noticed that he has tremor when he is sitting upright in his head and a little bit in his hands. The patient told me in the ICU nurse that this is normal for him at home. I did discuss the case briefly with pulmonology with Dr. Biswas on his ICU rounds. I anticipate that neurology will see the patient in around lunchtime. Exam Physical Exam Vital Signs: Temp Pulse Resp BP Pulse Ox O2 Del Method FiO2 98.0 F 53 L 17 157/67 H 92 L Room Air 21 06/20/24 04:00 06/20/24 08:00 06/20/24 08:00 06/20/24 08:00 06/20/24 08:00 06/20/24 08:00 06/19/24 23:54 Narrative: GEN: Awake, alert, oriented x 3. Mild tremor to his head and neck while he is sitting upright in bed. Lungs: Clear to auscultation bilaterally, no wheezing, no crackles. He could be diminished in the bases and is hard to hear because his BMI is 48. Heart: Mildly bradycardic but with a regular rate and rhythm, no murmurs, rubs, or gallops. Abdomen: Very protuberant. To palpation this is entirely soft, normal bowel sounds, no rigidity, guarding, or acute peritoneal signs. Extremities: massive longstanding 3+ edema from above his knees down to his toes bilaterally. He has a little bit of wrinkling in his ankles at this time so I suspect that he has a little bit less edema in his legs today compared to when I met him in the ER yesterday. Objective Lab Results 06/20/24 04:27 06/20/24 04:27 Meds Allergies and Active Meds Allergies No Known Allergies Allergy (Verified 06/19/24 09:45) Active Meds: Active Medications Generic Name Dose Route Start Last Admin Trade Name Freq PRN Reason Stop Dose Admin Acetaminophen 650 mg 06/19/24 14:21 Acetaminophen 325 Mg Tablet PO 06/19/25 14:20 Q4H PRN Pain Scale 1 - 3 or fever Apixaban 5 mg 06/19/24 15:00 06/20/24 09:22 Apixaban 5 Mg Tablet PO 06/19/25 14:59 5 mg BID DORI Administration Atorvastatin Calcium 20 mg 06/19/24 22:00 06/19/24 21:24 Atorvastatin 20 Mg Tablet PO 06/19/25 21:59 20 mg HS DORI Administration Bisacodyl 10 mg 06/19/24 14:21 Bisacodyl 10 Mg Supp.Rect AZ 06/19/25 14:20 DAILY PRN Constipation Bisacodyl 10 mg 06/19/24 14:21 Bisacodyl 5 Mg Tablet.Dr PO 06/19/25 14:20 DAILY PRN Constipation Docusate Sodium 100 mg 10/30/24 21:00 06/20/24 09:21 Docusate 100 Mg Capsule PO 06/19/25 20:59 100 mg BID DORI Administration Furosemide 40 mg 06/19/24 15:00 06/20/24 09:23 Furosemide 40 Mg/4 Ml Vial IV-PUSH 06/19/25 14:59 40 mg Q6H DORI Administration Gabapentin 300 mg 06/19/24 21:00 06/20/24 09:22 Gabapentin 300 Mg Capsule PO 06/19/25 20:59 300 mg BID DORI Administration Hydralazine HCl 50 mg 06/19/24 21:00 06/20/24 09:22 Hydralazine 50 Mg Tablet PO 06/19/25 20:59 50 mg BID DORI Administration Lisinopril 20 mg 06/20/24 09:00 06/20/24 09:22 Lisinopril 20 Mg Tablet PO 06/20/25 08:59 20 mg DAILY DORI Administration Loratadine 10 mg 06/20/24 09:00 06/20/24 09:22 Loratadine 10 Mg Tablet PO 06/20/25 08:59 10 mg DAILY DORI Administration Nebivolol 10 mg 06/20/24 09:00 06/20/24 09:21 Nebivolol 5 Mg Tablet PO 06/20/25 08:59 10 mg DAILY DORI Administration Pantoprazole Sodium 40 mg 06/19/24 21:00 06/20/24 09:22 Pantoprazole 40 Mg Tablet.Dr PO 06/19/25 20:59 40 mg BID DORI Administration Phenyleph/Shark Oil/[place] Butter 1 supp 06/19/24 21:00 Phenylephrine/[place] Butter 6.25 Mg/2211 Mg 1 Supp AZ 06/19/25 20:59 BID PRN hemorrhoids Polyethylene Glycol 17 gm 06/19/24 21:00 06/20/24 09:37 Polyethylene Glycol 3350 17 Gm Powd.Pack PO 06/19/25 20:59 17 gm BID DORI Administration Potassium Chloride 20 meq 06/19/24 14:21 Potassium Chloride Er 20 Meq Tab.Er.Prt PO 06/19/25 14:20 DAILY PRN Hypokalemia Potassium Chloride 40 meq 06/19/24 14:21 Potassium Chloride Er 20 Meq Tab.Er.Prt PO 06/19/25 14:20 DAILY PRN Hypokalemia Potassium Chloride 10 meq 06/20/24 09:00 06/20/24 09:20 Potassium Chloride Er 10 Meq Tablet.Er PO 06/20/25 08:59 10 meq DAILY DORI Administration Prednisone 60 mg 06/19/24 14:20 06/20/24 09:21 Prednisone 20 Mg Tablet PO 06/19/25 14:19 60 mg DAILY DORI Administration Pyridostigmine [place] 90 mg 06/19/24 18:00 06/20/24 09:21 Pyridostigmine [place] 60 Mg Tablet PO 06/19/25 17:59 90 mg QID DORI Administration Sodium Chloride 0 ml 06/19/24 09:44 06/20/24 09:40 Sodium Chloride 0.9 % 10 Ml Syringe IV-PUSH 06/19/25 09:43 10 ml PRN PRN Administration Flush Spironolactone 25 mg 06/19/24 18:00 06/20/24 09:22 Spironolactone 25 Mg Tablet PO 06/19/25 17:59 25 mg DAILY DORI Administration A&P - Hospitalist Assessment/Plan (1) Myasthenia gravis: (2) Generalized weakness: (3) Obstructive sleep apnea: (4) Impaired mobility and activities of daily living: (5) Hypertension: (6) Hyperlipidemia: (7) Atrial fibrillation: (8) Dyspnea: Plan Assessment: Acute exacerbation of myasthenia gravis, with risk of myasthenia gravis crisis. -Patient was intubated for several for an acute myasthenia gravis crisis a little bit more than 1 year ago. Chronic prednisone use. Elevated blood pressure. Massive lower extremity edema. History of atrial fibrillation - when critically ill and on the ventilator. Obstructive sleep apnea. Clinical parents of obesity hypoventilation and at risk for overlap combination of JAMISON and OHS. History of pulmonary embolus. Chronic anticoagulation with Eliquis. Mild hypokalemia. Plan: Continue to care for the patient ICU for close monitoring of his respiratory status. To support his respiration he should use BiPAP or his home CPAP at nighttime. I believe the patient's leg edema and elevated blood pressure to be problematic and parts representative of advancement of his chronic disease state. He weighs about10 kg more than he did a year ago, and I think most of that is anasarca type edema. He seems to be responding to IV lasix. Given his prostate problems continue to utilize a male PureWick to help collecturine while we are diuresing him with Lasix. Check weights daily. Lowest possible sodium diet. Awaiting check echocardiogram. Patient may require cardiology consultation if the echocardiogram is significantly changed from the one a year ago. He is having frequent PVCs on the monitor. Not replace magnesium now and Lysterbecame significantly lower. Physical therapy and Occupational Therapy saw him today and recommended that he go to the [address] [place] [id number] inpatient rotation unit. Documented By: Mateo Horne DO 0941 Signed By: <Electronically signed by Mateo Horne DO> 06/20/2447 [facility] Work Phone: 1(845) 580-557010-30-2024 Consult note Author Abi Biswas [facility] June 19, 2024 6:54pm Note Date/Time June 19, 2024 6 :54pm [facility] [address] [place] [address] Pulmonology Consult Note Signed Patient: Taurus Garcia MR#: [id number] : 1945 Acct:[id number] Age/Sex: 78 / M Adm Date: 4 Loc: Room: [address] [place] [address] Type: ADM IN Attending Dr: Mateo Horne DO Copies to: MD Mateo Gonsalves II, DO Yuhann Kenneth L Lopez, MD~ HPI Date/Time of Consultation: Date of Service: 06/19/2024 Time of Service: 18:39 Consulting Provider: Abi Biswas Requesting Provider: Mateo Horne History of Present Illness History of present illness: Mr. Garcia is a 78 year old male w/ PMH of Myasthenia gravis, JAMISON on CPAP, PE julio cesar/c, CHF, obesity, presents with progressive weakness the past 3 days, with concerns of worsening MG crisis. He is being followed by Dr. Lombardi and is on Pyridostigmine and Prednisone at home. Had a prolonged hospitalization last yearfor MG crisis, requiring MV support, IVIG, prolonged rehab. He denies any preceding events leading to his weakness. He does have significant LE edema. He walks with a walker. He [place] [facility] and was admitted to the ICU. He denies shortness of breath when laying down in bed. Neurology saw him and wants to increase steroids and pyridostigmine first and hold off IVIG. Hospitalist increasing diuresis. RT measured NIF at -48, VC 1.2L. No ABG was obtained yet. He is on RA, able to speak full sentences without stopping. Review of Systems Review of Systems Review of systems: see [facility] Medical History (Updated 06/19/24 @ 18:52 by Abi Biswas MD) Myasthenia gravis Problem List clean-up per request of Phys. EHR Cmte Prostate hypertrophy Bladder cancer Problem List clean-up per request of Phys. EHR Cmte Pulmonary emboli Problem List clean-up per request of Phys. EHR Cmte HTN (hypertension) Problem List clean-up per request of Phys. EHR Cmte Acute exacerbation of myasthenia gravis Problem List clean-up per request of Phys. EHR Cmte Surgical History (Updated 06/19/24 @ 14:33 by Mateo Horne DO) History of cystoscopy Family History Other Hypertension Social History Smoking Status: Never smoker Substance Use Type: None Substance Abuse Comment: little etoh Meds Medications and Allergies Allergies No Known Allergies Allergy (Verified 06/19/24 09:45) Home Medications hydralazine 50 mg tablet 50 mg PO BID 12/27/17 [History Confirmed 06/19/24] lisinopril 20 mg tablet 20 mg PO DAILY 12/27/17 [History Confirmed 06/19/24] loratadine 10 mg tablet (Allergy Relief (loratadine)) 10 mg PO DAILY 12/27/17 [History Confirmed 06/19/24] ssnnwwev-uaw-dlcey acid 0.4 mg-lycopene 300 mcg-lutein 250 mcg tablet (Adults 50Plus) 1 tab PO DAILY 12/27/17 [History Confirmed 06/19/24] omega-3 fatty acids-fish oil 360 mg-1,200 mg capsule (Fish Oil) 1 cap PO BID 12/27/17 [History Confirmed 06/19/24] simvastatin 40 mg tablet 40 mg PO HS 12/27/17 [History Confirmed 06/19/24] furosemide 20 mg tablet 20 mg PO DAILY 05/10/23 [History Confirmed 06/19/24] nebivolol 10 mg tablet 10 mg PO DAILY 05/10/23 [History Confirmed 06/19/24] apixaban 5 mg tablet (Eliquis) 5 mg PO Q12H #0 tabs 06/09/23 [Rx Confirmed 06/19/24] potassium chloride 10 mEq tablet,extended release(part/cryst) 10 meq PO DAILY 30days #30 tabs 06/09/23 [Rx Confirmed 06/19/24] prednisone 10 mg tablet 10 mg PO DAILY 30 days #30 tabs 06/09/23 [Rx Confirmed 06/19/24] pyridostigmine bromide 60 mg tablet 1 tab PO QID 30 days #120 tabs 06/09/23 [Rx Confirmed 06/19/24] triamterene 37.5 mg-hydrochlorothiazide 25 mg tablet (Maxzide-25mg) 1 tab PO DAILY 30 days #30 tabs 06/09/23 [Rx Confirmed 06/19/24] gabapentin 300 mg capsule 300 mg PO BID 06/19/24 [History Confirmed 06/19/24] hydrocodone 5 mg-acetaminophen 325 mg tablet 1 tab PO DAILY PRN pain 06/19/24 [History Confirmed 06/19/24] Exam Physical Exam Vital Signs: Temp Pulse Resp BP Pulse Ox O2 Del Method 98.1 F 63 16 111/62 92 L Room Air 06/19/24 16:00 06/19/24 18:00 06/19/24 18:00 06/19/24 18:00 06/19/24 18:00 06/19/24 18:00 Const Other: Gen: Chronically ill appearing not in respiratory distress HENT: EOMI PERRL no thrush Neck: supple no JVD CVS: RRR -m/r/g Lungs: Clear bilaterally Abd: soft non tender Ext: +LE edema good cap refill Neuro: AOx3 weak LE but non focal Results - Pulmonology Intake and Output I&O - Last 24 Hours: Intake & Output 06/19/24 06/19/24 06/19/24 07:59 15:59 23:59 Intake Total 200 / 200 Output Total 850 / 850 Balance -650 / -650 Weight 143.6 kg Labs 06/19/24 09:49 06/19/24 09:49 Assessment/Plan (1) Acute exacerbation of myasthenia gravis: (2) Dyspnea: (3) Generalized weakness: (4) JAMISON on CPAP: (5) History of pulmonary embolism: Plan - serial NIF and VC checks - ABG if shortness of breath is worsening; at this time he appears compensated and does not appear to be in respiratory crisis - will place him on CPAP qhs and prn; will bring home CPAP tomorrow - defer to neuro on MG treatment - hospitalist increasing diuresis and checking ECHO, agree - will follow Documented By: Abi Biswas MD 1838 Signed By: <Electronically signed by Abi Biswas MD> 06/19/241853 [facility] Work Phone: 1(236) 174-604610-30-2024 Consult note Author Jamel Packer [facility] June 19, 2024 3:00pm Note Date/Time June 19, 2024 3 :03pm [facility] [address] [place] [address] Neurology Consult Note Signed Patient: Taurus Garcia MR#: [id number] : 1945 Acct:[id number] Age/Sex: 78 / M Adm Date: 4 Loc: Room: [address] [place] [address] Type: ADM IN Attending Dr: Mateo Horne DO Copies to: DO Komal Bajwa II, MD Kristopher L Lindbloom, DO~ HPI Consult Date: 06/19/24 Fluid Dynamicist: Jamel Packer DO [facility] Medical History (Updated 06/19/24 @ 14:59 by Jamel Packer DO) Myasthenia gravis Problem List clean-up per request of Phys. EHR Cmte Prostate hypertrophy Bladder cancer Problem List clean-up per request of Phys. EHR Cmte Pulmonary emboli Problem List clean-up per request of Phys. EHR Cmte HTN (hypertension) Problem List clean-up per request of Phys. EHR Cmte Acute exacerbation of myasthenia gravis Problem List clean-up per request of Phys. EHR Cmte Surgical History (Updated 06/19/24 @ 14:33 by Mateo Horne DO) History of cystoscopy Family History Other Hypertension Social History Smoking Status: Never smoker Substance Use Type: None Substance Abuse Comment: little etoh Meds Medications and Allergies Allergies No Known Allergies Allergy (Verified 06/19/24 09:45) Home Medications hydralazine 50 mg tablet 50 mg PO BID 12/27/17 [History Confirmed 06/19/24] lisinopril 20 mg tablet 20 mg PO DAILY 12/27/17 [History Confirmed 06/19/24] loratadine 10 mg tablet (Allergy Relief (loratadine)) 10 mg PO DAILY 12/27/17 [History Confirmed 06/19/24] hambzonu-fwb-gaoab acid 0.4 mg-lycopene 300 mcg-lutein 250 mcg tablet (Adults 50Plus) 1 tab PO DAILY 12/27/17 [History Confirmed 06/19/24] omega-3 fatty acids-fish oil 360 mg-1,200 mg capsule (Fish Oil) 1 cap PO BID 12/27/17 [History Confirmed 06/19/24] simvastatin 40 mg tablet 40 mg PO HS 12/27/17 [History Confirmed 06/19/24] furosemide 20 mg tablet 20 mg PO DAILY 05/10/23 [History Confirmed 06/19/24] nebivolol 10 mg tablet 10 mg PO DAILY 05/10/23 [History Confirmed 06/19/24] apixaban 5 mg tablet (Eliquis) 5 mg PO Q12H #0 tabs 06/09/23 [Rx Confirmed 06/19/24] potassium chloride 10 mEq tablet,extended release(part/cryst) 10 meq PO DAILY 30days #30 tabs 06/09/23 [Rx Confirmed 06/19/24] prednisone 10 mg tablet 10 mg PO DAILY 30 days #30 tabs 06/09/23 [Rx Confirmed 06/19/24] pyridostigmine bromide 60 mg tablet 1 tab PO QID 30 days #120 tabs 06/09/23 [Rx Confirmed 06/19/24] triamterene 37.5 mg-hydrochlorothiazide 25 mg tablet (Maxzide-25mg) 1 tab PO DAILY 30 days #30 tabs 06/09/23 [Rx Confirmed 06/19/24] gabapentin 300 mg capsule 300 mg PO BID 06/19/24 [History Confirmed 06/19/24] hydrocodone 5 mg-acetaminophen 325 mg tablet 1 tab PO DAILY PRN pain 06/19/24 [History Confirmed 06/19/24] Exam Physical Exam Vital Signs: Temp Pulse Resp BP Pulse Ox O2 Del Method 98.0 F 59 L 16 175/74 H 96 Room Air 06/19/24 14:41 06/19/24 14:41 06/19/24 14:41 06/19/24 14:41 06/19/24 14:41 06/19/24 14:41 Results - Neuro Laboratory Findings 06/19/24 09:49 06/19/24 09:49 Diagnostic Findings Imaging/Impressions: ITS Impressions Chest X-Ray 06/19/24 09:51 IMPRESSION: CHRONIC INTERSTITIAL CHANGES. NO CONSOLIDATION TO SUGGEST PNEUMONIA. Impression dictated by: Silvestre Diallo Jr., D.ORaul06/19/2024 10:01 AM Dictation Location: [place] [address] Therapy Recommendations Therapy Recommendations: ST Recommendations ST Recommended Services at Speech Therapy,13/03 Supervision Discharge Assessment/Plan (1) Acute exacerbation of myasthenia gravis: Plan CONSULT REASON: Weakness, myasthenia gravis HPI: 78-year-old male with history of myasthenia gravis. He takes pyridostigmine 60 mg 4 times daily and prednisone 10 mg daily. He generally tolerates that regimen well. He does have some mild sinus bradycardia at times, some occasional loose stools, and some vasomotor rhinitis that could be due to the cholinesterase inhibitor. He follows in the outpatient setting with Dr. Saunders. He has history of a pulmonary embolus and is on a direct oral anticoagulant. He came into the emergency department for evaluation of acute onchronic weakness and dyspnea on exertion happening over the past 3 days. He andhis are concerned he might be having a myasthenia exacerbation. He ambulates with a walker at baseline. He has had increased mobility issues ever since a fall with knee injury back in February. He has issues with his right eye which they say is because of a retinal detachment. He appears to have some intermittent ptosis with that upper eyelid but it is not worse than usual. He denies diplopia. He denies any dysarthria. He is not having any difficulty swallowing. Respiratory parameters were done in the emergency department, and his vital capacity was 1.2 L and his negative inspiratory force was 60. BNP wasminimally elevated. Chest x-ray showed chronic interstitial changes. It was felt that there was no pulmonary cause for her shortness of breath, so the myasthenia became the consideration. Of note, he had myasthenic crisis back in April 2023 requiring a 5-day course of IVIG and intubation with mechanical ventilation. EXAMINATION: In no distress. No deformities or trauma. Limbs are warm. Some edematous changes to distal lower extremities. Normal work of breathing. Visualized skinis generally intact and without concerning lesions lesions. Affect normal. Patient is alert. Attention normal. Speech is fluent and nondysarthric. He can complete full sentences without taking a breath. Pupils are equal and constricted. Right visual acuity is little more than finger counting. Left visual acuity is okay. Ocular motility is full. No nystagmus. Facial sensation is normal. Hearing is normal. Facial strength is normal aside from some intermittently noticed mild right upper eyelid ptosis. Tongue is midline. Muscle bulk and tone seem normal. Muscle strength graded as normal in the upperextremities. No limb drift in upper extremities. Diffusely weak in bilateral lower extremities, especially proximally, with hip flexion +3/5 bilaterally, butotherwise +4/5 throughout the legs. He has some tremors visible in the upper trunk. Reflexes trace throughout. Light touch is normal. No limb ataxia. DATA REVIEW: -MRI brain from back in February 2018 showed mild chronic small vessel ischemic changes and nothing overly concerning ASSESSMENT: 78-year-old man with myasthenia gravis here for evaluation of acute on chronic weakness and some dyspnea on exertion. Other potential causes for the dyspnea are somewhat ruled out, so there is concern for myasthenia gravis exacerbation. He performed pretty well with his respiratory parameters. Does not yet meet criteria for myasthenic crisis, which can hopefully be avoided. PLAN: 1. Increasing his home pyridostigmine 60 mg 4 times daily to 90 mg 4 times daily, probably temporarily. We will have to watch for excessive drooling, loose stools, nausea, bradycardia. 2. Increasing his home prednisone 10 mg daily to 60 mg daily for at least a fewdays. We will have to monitor his hypertension and hyperglycemia. 3. Monitor respiratory parameters every 4 hours. He wears CPAP at night. If respiratory parameters decline, consider daytime positive airway pressure ventilation depending on what an ABG says, etc. 4. I do not think we need consideration for IVIG yet. 5. Further recommendations to follow Documented By: Jamel Packer DO 06/19/24 1446 Signed By: <Electronically signed by Jamel Packer DO> 06/19/24 1500 [facility] Work Phone: 1(692) 656-365210-30-2024 History and physical note Author Mateo Horne [facility] June 19, 2024 2:37pm Note Date/Time June 19, 2024 2 :37pm [facility] [address] [place] [address] Hospitalist H&P Signed Patient: Taurus Garcia MR#: [id number] : 1945 Acct:[id number] Age/Sex: 78 / M Adm Date: 4 Loc: Room: [address] [place] [address] Type: ADM IN Attending Dr: Mateo Horne DO Copies to: MD Mateo Gonsalves II, ~ HPI DATE OF EXAMINATION: 06/19/24 CHIEF COMPLAINT: dyspnea, dyspnea on exertion, whole body fatigue. HISTORY OF PRESENT ILLNESS: This is an 78-year-old man who came to the emergency room this morning with complaints of worsening shortness of breath and dyspnea on exertion that have been getting particularly bad over the last 3 days. In the emergency room concern was raised for myasthenia gravis. They did contact neurology with Dr. Packer. This patient does have a known history of myasthenia gravis. He tells me that he has been taking his pyridostigmine religiously which looks like it is a dose of 60 mg 4 times a day, prescribed in neurology with Dr. Saunders, and taking prednisone 15 mg a day. Back in January he had an ER visit where myasthenia gravisexacerbation was suspected and his prednisone was increased to 60. Year ago, inSeptember, he presented to the [facility] emergency room and had to be intubated. He completed a course of IVIG and was in the intensive care unit on the ventilator for some time. There was a brief atrial fibrillation with rapid ventricular response during that time but it was felt to be a singular isolated episode. Patient says that he injured his left knee in January. Since that time he has had physical therapy coming out of the house and he had been getting stronger on that until they came yesterday and he could barely participate with any therapy. The patient's blood pressure in emergency room was elevated 173/78. A portable chest x-ray was done. To my view this does show pulmonary edema. His serum creatinine is risen from 0.91 at his baseline up to 1.35. His potassium is a little bit low at 3.4. His B-type natriuretic peptide is elevated 114. In theemergency room he is having frequent premature ventricular contractions. 1 yearago his weight was 137.6 kg. Right now, on the ER bed scale, his weight is 145.1 kg. Review of Systems Review of Systems Review of systems: 10 systems are reviewed and are negative except as mentioned elsewhere in the documentation. [facility] Medical History (Updated 06/19/24 @ 14:33 by Mateo Horne DO) Myasthenia gravis Problem List clean-up per request of Phys. EHR Cmte Prostate hypertrophy Bladder cancer Problem List clean-up per request of Phys. EHR Cmte Pulmonary emboli Problem List clean-up per request of Phys. EHR Cmte HTN (hypertension) Problem List clean-up per request of Phys. EHR Cmte Acute exacerbation of myasthenia gravis Problem List clean-up per request of Phys. EHR Cmte Surgical History (Updated 06/19/24 @ 14:33 by Mateo Horne DO) History of cystoscopy Family History Other Hypertension Social History Smoking Status: Never smoker Substance Use Type: None Substance Abuse Comment: little etoh Meds Medications and Allergies Allergies No Known Allergies Allergy (Verified 06/19/24 09:45) Home Medications hydralazine 50 mg tablet 50 mg PO BID 12/27/17 [History Confirmed 06/19/24] lisinopril 20 mg tablet 20 mg PO DAILY 12/27/17 [History Confirmed 06/19/24] loratadine 10 mg tablet (Allergy Relief (loratadine)) 10 mg PO DAILY 12/27/17 [History Confirmed 06/19/24] eefcxvrf-ohw-bztvn acid 0.4 mg-lycopene 300 mcg-lutein 250 mcg tablet (Adults 50Plus) 1 tab PO DAILY 12/27/17 [History Confirmed 06/19/24] omega-3 fatty acids-fish oil 360 mg-1,200 mg capsule (Fish Oil) 1 cap PO BID 12/27/17 [History Confirmed 06/19/24] simvastatin 40 mg tablet 40 mg PO HS 12/27/17 [History Confirmed 06/19/24] furosemide 20 mg tablet 20 mg PO DAILY 05/10/23 [History Confirmed 06/19/24] nebivolol 10 mg tablet 10 mg PO DAILY 05/10/23 [History Confirmed 06/19/24] apixaban 5 mg tablet (Eliquis) 5 mg PO Q12H #0 tabs 06/09/23 [Rx Confirmed 06/19/24] potassium chloride 10 mEq tablet,extended release(part/cryst) 10 meq PO DAILY 30days #30 tabs 06/09/23 [Rx Confirmed 06/19/24] prednisone 10 mg tablet 10 mg PO DAILY 30 days #30 tabs 06/09/23 [Rx Confirmed 06/19/24] pyridostigmine bromide 60 mg tablet 1 tab PO QID 30 days #120 tabs 06/09/23 [Rx Confirmed 06/19/24] triamterene 37.5 mg-hydrochlorothiazide 25 mg tablet (Maxzide-25mg) 1 tab PO DAILY 30 days #30 tabs 06/09/23 [Rx Confirmed 06/19/24] gabapentin 300 mg capsule 300 mg PO BID 06/19/24 [History Confirmed 06/19/24] hydrocodone 5 mg-acetaminophen 325 mg tablet 1 tab PO DAILY PRN pain 06/19/24 [History Confirmed 06/19/24] Allergy/Medication Comments: Please note that the home medication list may contain elements that are not accurate. This list of home medications will be updated during the hospital stay as more information becomes available. Exam Physical Exam Vital Signs: Temp Pulse Resp BP Pulse Ox O2 Del Method 98.7 F 60 20 147/68 H 94 L Room Air 06/19/24 09:44 06/19/24 14:13 06/19/24 14:13 06/19/24 14:13 06/19/24 14:13 06/19/24 14:13 Narrative: GEN: Awake, alert, oriented x 3. Head: Normal Cephalic, Atraumatic. Eyes: Conjunctiva and sclera clear bilaterally. His right eyelid is closed when I walk in the room. He explains that he had a retinal hemorrhage on the right eye in the past. He does keep his eyelids fairly closed and seems to havea little bit of difficulty opening them. Nose: External nose and nares normal bilaterally. Mouth: Lips and tongue normal. Mallampati grade 4. I cannot see his uvula or even the back of his mouth. Neck: No JVD. No thyromegaly. No lymphadenopathy. Lungs: Clear to auscultation bilaterally, no wheezing, no crackles. Heart: Regular rate and rhythm, no murmurs, rubs, or gallops. Abdomen: Very protuberant. To palpation this is entirely soft, normal bowel sounds, no rigidity, guarding, or acute peritoneal signs. Extremities: massive longstanding 3+ edema from above his knees down to his toes bilaterally. Skin: No systemic rashes or lesions. Psychiatric: Calm. Conversant. Cooperative. Results - Hospitalist H&P Lab Results Labs: Laboratory Last Values Corrected WBC 8.7 X10E3/uL (4.1-10.5) 06/19/24 09:49 Uncorrected WBC Count 8.7 x10E3/uL (4.1-10.5) 06/19/24 09:49 RBC 4.44 X10E6/uL (3.90-5.60) 06/19/24 09:49 Hgb 13.7 g/dL (13.0-17.0) 06/19/24 09:49 Hct 41.5 % (38.8-50.0) 06/19/24 09:49 MCV 93.6 fl (83.5-101) 06/19/24 09:49 MCH 31.0 pg (27.5-35.2) 06/19/24 09:49 MCHC 33.1 g/dL (32.5-35.6) 06/19/24 09:49 RDW 15.2 % (12.0-14.8) H 06/19/24 09:49 Plt Count 200 x10E3/uL (150-450) 06/19/24 09:49 MPV 8.1 fl (6.6-10.1) 06/19/24 09:49 Neut % (Auto) 59.0 % (.) 06/19/24 09:49 Lymph % (Auto) 27.5 % (.) 06/19/24 09:49 [place] % (Auto) 11.3 % (.) 06/19/24 09:49 Eos % (Auto) 1.2 % (.) 06/19/24 09:49 Baso % (Auto) 1.0 % (.) 06/19/24 09:49 Nucleat RBC Rel Count 0.1 /100 WBC (0-0.5) 06/19/24 09:49 Neut # (Auto) 5.1 x10E3/uL (1.8-7.7) 06/19/24 09:49 Lymph # (Auto) 2.4 x10E3/uL (1.00-4.8) 06/19/24 09:49 [place] # (Auto) 1.0 x10E3/uL (0.0-0.8) H 06/19/24 09:49 Eos # (Auto) 0.1 x10E3/uL (0.0-0.45) 06/19/24 09:49 Baso # (Auto) 0.1 x10E3/uL (0.0-0.2) 06/19/24 09:49 Monocyte Dist Width 17.50 % (0.00-20.00) 06/19/24 09:49 PHA Creatinine Clear 62.88 06/19/24 09:49 Sodium 144 mmol/L (136-145) 06/19/24 09:49 Potassium 3.4 mmol/L (3.5-5.1) L 06/19/24 09:49 Chloride 106 mmol/L (98-107) 06/19/24 09:49 Carbon Dioxide 29.8 mmol/L (21.0-31.0) 06/19/24 09:49 Anion Gap 11.6 mEq/L (6.0-15.0) 06/19/24 09:49 BUN 32 mg/dL (7-25) H 06/19/24 09:49 Creatinine 1.35 mg/dL (0.70-1.30) H 06/19/24 09:49 Est GFR (CKD-EPI) 53.076 mL/Min 06/19/24 09:49 Glucose 107 mg/dL (70-100) H 06/19/24 09:49 Calcium 9.0 mg/dL (8.6-10.3) 06/19/24 09:49 Total Bilirubin 0.8 mg/dl (0.3-1.0) 06/19/24 09:49 AST 21 U/L (13-39) 06/19/24 09:49 ALT 16 U/L (7-52) 06/19/24 09:49 Alkaline Phosphatase 52 U/L (34-104) 06/19/24 09:49 Total Creatine Kinase 153 U/L (30-223) 06/19/24 09:49 Troponin I High Sens 10.5 pg/mL (0.0-20.0) 06/19/24 09:49 B-Natriuretic Peptide 114.0 pg/mL (5-100) H 06/19/24 09:49 Total Protein 6.5 gm/dL (6.4-8.9) 06/19/24 09:49 Albumin 3.8 gm/dL (3.5-5.7) 06/19/24 09:49 Globulin 2.7 gm/dL 06/19/24 09:49 Albumin/Globulin Ratio 1.4 06/19/24 09:49 Assessment & Plan Assessment/Plan (1) Myasthenia gravis: (2) Generalized weakness: (3) Obstructive sleep apnea: (4) Impaired mobility and activities of daily living: (5) Hypertension: (6) Hyperlipidemia: (7) Atrial fibrillation: (8) Dyspnea: Plan Assessment: Acute exacerbation of myasthenia, with risk of myasthenia gravis crisis. Chronic prednisone use. Elevated blood pressure. Massive lower extremity edema. History of atrial fibrillation. History of pulmonary embolus. Chronic anticoagulation with Eliquis. Mild hypokalemia. Plan: Hospital admission, inpatient status. Please the patient ICU for close monitoring of his respiratory status. To support his respiration he should use BiPAP at nighttime. I discussed the case in detail with neurology with Dr. Orozco. At this time pyridostigmine will be increased to 90 mg 4 times a day and prednisone will be increased to 60 mg daily. Consult to pulmonology/critical care. I believe the patient's leg edema and elevated blood pressure to be problematic. I will start him on Lasix for diuresis. Given his prostate problems he would benefit from a male PureWick to help collect urine while we are diuresing him with Lasix. Check weights daily. Lowest possible sodium diet. Will check echocardiogram. Patient may require cardiology consultation if the echocardiogram is unchanged from the one a year ago. He is having frequent PVCs on the monitor. I will replace the potassium. I will check a magnesium level, but supplementing his magnesium should be done cautiously in the setting of myasthenia gravis. Consult to physical therapy Consult Occupational Therapy. Consult to speech therapy. Check hemoglobin A1c. IP vs OBS Justification Based on differential dx, clinical care plan, and risk of adverse events, if untreated, in my clinical judgement this patient requires an acute care setting as: INPATIENT because of an expectation of an over 2 midnight stay. Estimated length of stay (# of days): 5 Documented By: Mateo Horne DO [id number] Signed By: <Electronically signed by Mateo Horne DO> 06/19/24 1437 [facility] Work Phone: 1(491) 753-237710-30-2024 Evaluation note* Diagnosis Onset Date Resolution Status Admit Date Dyspnea acute June 19, 2024 1:56pm History of pulmonary embolism acute June 19, 2024 1:56pm JAMISON on CPAP acute June 19, 2024 1:56pm Acute exacerbation of myasthenia gravis resolved June 19, 2024 1:56pm Hyperlipidemia resolved June 192023 1:56pm Hypertension resolved May 1:56pm Atrial fibrillation inactive Octob er 2023 1:56pm Impaired mobility and activities of daily living inactive Octob er 2023 1:56pm Myasthenia gravis inactive June 19, 2024 1:56pm Obstructive sleep apnea inactive O ctober 2023 1:56pm Acute hypokalemia deleted June 19, 2024 1:56pm Generalized weakness deleted Octo elliot 2023 1:56pm Chronic anticoagulation acute N ov2023 2:40pm Dyspnea acute June 22, 2024 2:40pm History of pulmonary embolism acute June 22, 2024 2:40pm JAMISON on CPAP acute June 22, 2024 2:40pm Acute exacerbation of myasthenia gravis resolved June 22, 2024 2:40pm Hypertension resolved June 2:40pm Impaired mobility and activities of daily living inactive [facility] 2023 2:40pm Generalized weakness deleted [facility] 2023 2:40pm [facility] Work Phone: 1(955) 817-760310-30-2024 Evaluation note* Diagnosis Onset Date Resolution Status Admit Date Dyspnea acute June 19, 2024 1:56pm History of pulmonary embolism acute June 19, 2024 1:56pm JAMISON on CPAP acute June 19, 2024 1:56pm Acute exacerbation of myasthenia gravis resolved June 19, 2024 1:56pm Hyperlipidemia resolved June 192023 1:56pm Hypertension resolved May 1:56pm Atrial fibrillation inactive Octob er 2023 1:56pm Impaired mobility and activities of daily living inactive Octob er 2023 1:56pm Myasthenia gravis inactive June 19, 2024 1:56pm Obstructive sleep apnea inactive O ctober 2023 1:56pm Acute hypokalemia deleted June 19, 2024 1:56pm Generalized weakness deleted Octo elliot 2023 1:56pm Chronic anticoagulation acute N ovember 2023 2:40pm Dyspnea acute June 22, 2024 2:40pm History of pulmonary embolism acute June 22, 2024 2:40pm JAMISON on CPAP acute June 22, 2024 2:40pm Acute exacerbation of myasthenia gravis resolved June 22, 2024 2:40pm Hypertension resolved June 2:40pm Impaired mobility and activities of daily living inactive [facility] 2023 2:40pm Generalized weakness deleted [facility] 2023 2:40pm MATT (acute kidney injury) acute July 09, 2024 5:43pm Change in vision acute July 09, 2024 5:43pm Generalized weakness acute [facility] 2023 5:43pm [facility] Work Phone: 1(391) 247-108710-24-2024 History of Present illness Narrative* Real Tuttle, SRIDHAR - 06/13/2024 2:00 PM EDT Patient: Taurus Garcia : 1945 PCP: Komal Nguyen MD SUBJECTIVE This is a 78 y.o. male that presents today with a CC of elongated, thick nails. Pt states nails have been elongated and thick for many years and cause pain with ambulation in shoegear. Pt has tried previous treatment with minimal relief. Pt presents today for nail care and treatment. Patient has positive history of venous stasis Allergies: No Known Allergies Past Medical History: Past Medical History: Diagnosis Date Acute respiratory failure with hypoxia ([facility]) 11/17/2023 Acute respiratory insufficiency 12/15/2018 d/t Pulmonary Emboli Allergic rhinitis due to other allergen Autoimmune disorder ([facility]) Bilateral pulmonary embolism ([facility]/HCC) 2019 Acute Hypoxic Resp. 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 Cervical radiculopathy at C8 05/2017 CTS (carpal tunnel syndrome) 05/2017 Bilateral Essential hypertension, benign ([facility]) Facial droop History of echocardiogram 12/15/2018 EF 60-65%, LVH Hypertension ([facility]) Impaired glucose tolerance test Oral Lumbosacral spondylosis without myelopathy LVH (left ventricular hypertrophy) 12/15/2018 ECHO EF 60-65% Macular edema 2008 /pucker Muscle cramp Myasthenia gravis ([facility]) 12/27/2017 / dyspnea Myasthenic crisis ([facility]) 05/10/2023 Obesity Obstructive sleep apnea (adult) (pediatric) Pulmonary emboli ([facility]) 11/17/2023 Pulmonary embolism ([facility]) 11/2018 Pure hypercholesterolemia ([facility]) Shortness of breath Superficial thrombophlebitis 12/16/2018 Rt Thigh Tremor Troponin I above reference range 11/17/2023 Urothelial carcinoma ([facility]) 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 UTI, Myasthenia Gravis, JORDAN 02/21/2018 Medications: Current Outpatient Medications: apixaban (Eliquis) 5 MG tablet, TAKE 1 TABLET BY MOUTH TWICE DAILY, Disp: 180 tablet, Rfl: 3 baclofen (Lioresal) 10 MG tablet, TAKE 1 TABLET BY MOUTH WITH FOOD OR MILK 3 TIMES DAILY, Disp: 270tablet, Rfl: 1 furosemide (Lasix) 20 MG tablet, Take 1 tablet (20 mg) by mouth in the morning., Disp: 100 tablet, Rfl: 3 gabapentin (Neurontin) 300 MG capsule, Take 1 capsule (300 mg) by mouth in the morning and 1 capsule (300 mg) before bedtime., Disp: 180 capsule, Rfl: 3 hydrALAZINE (Apresoline) 50 MG tablet, TAKE 1 TABLET BY MOUTH TWICE DAILY WITH FOOD, Disp: 180 tablet, Rfl: 3 HYDROcodone-acetaminophen (Cardale) 5-325 MG tablet, Take 1 tablet by mouth Daily as needed, Disp: , Rfl: lisinopril 20 MG tablet, TAKE 1 TABLET BY MOUTH ONCE DAILY, Disp: 90 tablet, Rfl: 3 loratadine (Claritin) 10 MG tablet, Take 10 mg by mouth in the morning., Disp: , Rfl: Multiple Vitamins-Minerals (GNP ONE DAILY MENS 50+ADVANCED PO), take 1 tablet by ORAL route every day with food Oral, Disp: , Rfl: nebivolol (Bystolic) 10 MG tablet, Take 1 tablet (10 mg) by mouth Daily, Disp: 100 tablet, Rfl: 3 nystatin (Mycostatin) 481294 UNIT/GM powder, APPLY TO THE AFFECTED AREA(S) THREE TIMES DAILY FOR 30DAYS, Disp: , Rfl: omega-3 (Fish Oil) 1000 MG capsule, Take 2 capsules by mouth in the morning., Disp: , Rfl: potassium chloride CR (Klor-Con M10) 10 MEQ ER tablet, Take 1 tablet (10 mEq) by mouth in the morning and 1 tablet (10 mEq) before bedtime. Take with food.., Disp: 180 tablet, Rfl: 3 predniSONE (Deltasone) 10 MG tablet, Take 1.5 tablets (15 mg) by mouth Daily, Disp: 45 tablet, Rfl:5 pyridostigmine (Mestinon) 60 MG tablet, TAKE 1 TABLET BY MOUTH 4 TIMES DAILY, Disp: 360 tablet, Rfl: 1 simvastatin (Zocor) 40 MG tablet, TAKE 1 TABLET BY MOUTH ONCE DAILY IN THE EVENING, Disp: 90 tablet, Rfl: 3 triamterene-hydrochlorothiazide (Maxzide-25) 37.5-25 MG tablet, Take 1 tablet by mouth Daily, Disp:100 tablet, Rfl: 3 Social History: Social History Socioeconomic History Marital status: Spouse name: Not on file Number of children: Not on file Years of education: Not on file Highest education level: Not on file Occupational History Not on file Tobacco Use Smoking status: Never Smokeless tobacco: Never Substance and Sexual Activity Alcohol use: Yes Drug use: Not on file Sexual activity: Not on file Other Topics Concern Not on file Social History Narrative Not on file Social Drivers of Health Financial Resource Strain: Low Risk (03/17/2023) Overall Financial Resource Strain (CARDIA) Difficulty of Paying Living Expenses: Not hard at all Food Insecurity: No Food Insecurity (03/17/2023) Hunger Vital Sign Worried About Running Out of Food in the Last Year: Never true Ran Out of Food in the Last Year: Never true Transportation Needs: No Transportation Needs (03/17/2023) PRAPARE - Transportation Lack of Transportation (Medical): No Lack of Transportation (Non-Medical): No Physical Activity: Inactive (03/17/2023) Exercise Vital Sign Days of Exercise per Week: 0 days Minutes of Exercise per Session: 0 min Stress: No Stress Concern Present (03/17/2023) [employer] - Occupational Stress Questionnaire Feeling of Stress : Only a little Social Connections: Moderately Isolated (03/17/2023) Social Connection and Isolation Panel [NHANES] Frequency of Communication with Friends and Family: More than three times a week Frequency of Social Gatherings with Friends and Family: Once a week Attends Yazidism Services: Never Active Member of Clubs or Organizations: No Attends Club or Organization Meetings: Never Marital Status: Intimate Partner Violence: Not At Risk (03/17/2023) Humiliation, Afraid, Rape, and Kick questionnaire Fear of Current or Ex-Partner: No Emotionally Abused: No Physically Abused: No Sexually Abused: No Housing Stability: Low Risk (03/17/2023) Housing Stability Vital Sign Unable to Pay for Housing in the Last Year: No Number of Places Lived in the Last Year: 1 Unstable Housing in the Last Year: No ROS: General: denies fever, chills, fatigue, malaise OBJECTIVE LE EXAM: DERM: Elongated thick yellow crumbly nails digits 1 through 10. diminished hair growth b/l feet. +1 pitting edema noted to bilateral ankles VASC: Positive palpable pedal pulses bilaterally NEURO: Gross sensation intact to bilateral feet ORTHO: Positive pain on palpation to nails 1 through 10 ASSESSMENT 1. 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cosis of toenails of both feet 2. Venous insufficiency PLAN Discussed proper foot care with patient today. Debride nails in length and thickness digits 1 through 10 Visit spent with patient education on condition and treatment of condition. Real Tuttle DPM documented in this encounterMadison Medical [id number] History of Present illness Narrative* Stanley Saunders, DO - 05/27/2024 1:00 PM EDT Images from the original note were not included. Chief complaint: Myasthenia gravis Subjective Taurus Garcia is a 78 y.o. male. The patient presents today for follow up for myasthenia gravis. He is accompanied by his . Patient states things have been going well as far as his myasthenia gravis goes. He states he is having a lot of pain. This is located lower back and knees. He states his weakness is about the same. Admits to some drooping of his right eyelid. Admits to some shortness of breath but states this has not gotten any worse. Denies any vision changes. Denies any difficulty with speech. He would like to clarify the dosage with his prednisone. The last prescription they picked up said one and a half tablets. They thought it was one tablet. These are 10 mg tablets. The patient sleeps well but reports some fatigue throughout the day. He denies any further concerns today. Of note, the patient states he underwent extensive workup with pulmonology in the past which was unremarkable. Pulmonology felt his SOB to be related to excess weight. Review of Systems Constitutional: Positive for fatigue. Negative for appetite change, chills, fever and unexpected weight change. HENT: Negative for trouble swallowing and voice change. Eyes: Negative for visual disturbance. Negative for visual change, double vision, or loss of vision Respiratory: Positive for shortness of breath (on exertion - chronic). Negative for cough and wheezing. Cardiovascular: Positive for leg swelling. Negative for chest pain and palpitations. Gastrointestinal: Negative for abdominal pain, blood in stool, nausea and vomiting. Musculoskeletal: Positive for arthralgias and back pain (low back). Negative for gait problem and myalgias. Positive for hip pain Neurological: Positive for tremors and weakness (minimal and significantly improved). Negative for dizziness, seizures, syncope, facial asymmetry, speech difficulty, light-headedness, numbness and headaches. Psychiatric/Behavioral: Negative for confusion, hallucinations and suicidal ideas. The patient is not nervous/anxious. Medication List baclofen 10 MG tablet; Commonly known as: Lioresal; TAKE 1 TABLET BY MOUTH WITH FOOD OR MILK 3 TIMES DAILY Eliquis 5 MG tablet; Generic drug: apixaban; TAKE 1 TABLET BY MOUTH TWICE DAILY furosemide 20 MG tablet; Commonly known as: Lasix; Take 1 tablet (20 mg) by mouth in the morning. gabapentin 300 MG capsule; Commonly known as: Neurontin; Take 1 capsule (300 mg) by mouth in the morning and 1 capsule (300 mg) before bedtime. GNP ONE DAILY MENS 50+ADVANCED PO hydrALAZINE 50 MG tablet; Commonly known as: Apresoline; TAKE 1 TABLET BY MOUTH TWICE DAILY WITH FOOD HYDROcodone-acetaminophen 5-325 MG tablet; Commonly known as: Cardale lisinopril 20 MG tablet; TAKE 1 TABLET BY MOUTH ONCE DAILY loratadine 10 MG tablet; Commonly known as: Claritin nebivolol 10 MG tablet; Commonly known as: Bystolic; Take 1 tablet (10 mg) by mouth Daily nystatin [id number] UNIT/GM powder; Commonly known as: Mycostatin omega-3 1000 MG capsule; Commonly known as: Fish Oil potassium chloride CR 10 MEQ ER tablet; Commonly known as: Klor-Con M10; Take 1 tablet (10 mEq) by mouth in the morning and 1 tablet (10 mEq) before bedtime. Take with food. predniSONE 10 MG tablet; Commonly known as: Deltasone; Take 1.5 tablets (15 mg) by mouth Daily pyridostigmine 60 MG tablet; Commonly known as: Mestinon simvastatin 40 MG tablet; Commonly known as: Zocor; TAKE 1 TABLET BY MOUTH ONCE DAILY IN THE EVENING triamterene-hydrochlorothiazide 37.5-25 MG tablet; Commonly known as: Maxzide- 25; Take 1 tablet by mouth Daily Past Medical History: Diagnosis Date Acute respiratory failure with hypoxia (CMS/HCC) 11/17/2023 Acute respiratory insufficiency 12/15/2018 d/t Pulmonary Emboli Allergic rhinitis due to other allergen Autoimmune disorder (CMS/HCC) Bilateral pulmonary embolism (CMS/HCC) 2019 Acute Hypoxic Resp. 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 Cervical radiculopathy at C8 05/2017 CTS (carpal tunnel syndrome) 05/2017 Bilateral Essential hypertension, benign (CMS/HCC) Facial droop History of echocardiogram 12/15/2018 EF 60-65%, LVH Hypertension (CMS/HCC) Impaired glucose tolerance test Oral Lumbosacral spondylosis without myelopathy LVH (left ventricular hypertrophy) 12/15/2018 ECHO EF 60-65% Macular edema 2008 /pucker Muscle cramp Myasthenia gravis (CMS/HCC) 12/27/2017 / dyspnea Myasthenic crisis (CMS/HCC) 05/10/2023 Obesity Obstructive sleep apnea (adult) (pediatric) Pulmonary emboli (CMS/HCC) 11/17/2023 Pulmonary embolism (CMS/HCC) 11/2018 Pure hypercholesterolemia (CMS/HCC) Shortness of breath Superficial thrombophlebitis 12/16/2018 Rt Thigh Tremor Troponin I above reference range 11/17/2023 Urothelial carcinoma (CMS/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 hematuria s/p harrell cath trauma and possible SIRS Family History Problem Relation Name Age of Onset Cancer Mother Heart disease Father *denies family hx of MM Heart disease Other Multiple myeloma Neg Hx Social History Tobacco Use Smoking status: Never Smokeless tobacco: Never Substance Use Topics Alcohol use: Yes Allergies: Patient has no known allergies. Vitals: 05/27/24 1255 BP: 137/85 Pulse: 75 SpO2: 90% Body mass index is 49.42 kg/m . weight: 325 lb Neurologic exam: Mental status: Awake and alert with unlabored respirations. Normal work of breathing. No signs of respiratory distress observed. Oriented to person, place and time. Recent and remote memory are intact. Speech is clear and fluent without aphasia. Attention and concentration are normal. Fund of knowledge is appropriate for level of education. Obese. Edema to the bilateral lower extremities (legs, ankles, and feet). Cranial nerves: CN II: Visual acuity is normal. Visual hanley full to confrontation. CN III, IV, : Pupils are equal, round and reactive to light. Extraocular movements intact. No ptosis present. Sustained upgaze does not yield any obvious fatigability or ptosis. CN V: Facial sensation is normal. CN VII: Full and symmetric facial movement. CN VIII: Hearing is normal to finger rub bilaterally. CN IX and X: Palate elevates symmetrically. CN XI: Shoulder shrug is normal bilaterally. CN XII: Tongue is midline without atrophy or fasciculation. Motor: RUE strength deltoid , biceps , triceps , wrist extensors , wrist flexor , and bag sorter strength 5/5. LUE strength deltoid , biceps , triceps , wrist extensors , wrist flexor , and bag sorter strength 5/5. RLE strength iliopsoas, quadriceps, tibialis anterior, plantar flexion, and dorsiflexion strength 5/5. LLE strength iliopsoas, quadriceps, tibialis anterior, plantar flexion, and dorsiflexion strength 5/5. No weakness of the neck flexor or extensor muscles. Tone and bulk are normal. Sensory: Sensation is intact to light touch throughout all four extremities. Sensation is intact to temperature in all extremities. Reflexes: RUE biceps reflex 2+ , brachioradialis reflex 2+. LUE biceps reflex 2+ , brachioradialis reflex 2+. RLE Knee reflex 1+. LLE Knee reflex 1+. Coordination: Hafsqg-qw-rynl testing normal. Rapid alternating movements are normal. Gait: Normal. Review and summary of old records: I reviewed documentation from the patient[place] [facility] [place]. The patient presented with mild diffuse generalized weakness at the time. He was prescribed prednisone 60 mgby mouth x5 days. He was seemingly without any other apparent signs or symptoms of infection or MG exacerbation. EMG of the bilateral upper extremities on 04/05/19: C8 radiculopathy on the right which is mild, carpal tunnel syndrome on the left which is mild, ulnar neuropathies bilaterally which are mild, ulnar neuropathies are new MRI of the brain without contrast at [facility] on 02/20/18: Unremarkable EMG of the bilateral upper extremities on 06/19/17: Bilateral median neuropathy such as in carpal tunnel syndrome which is mild in degree electrically. Also a remote right C8 radiculopathy. 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 MRI of the brain in 02/2018 was unremarkable. He denies ptosis, double vision, difficulty speaking, difficulty swallowing, orincreased shortness of breath since the prior neurology appointment. The patient was evaluated [place] [facility] [place]24 due to increased generalized weakness over a period of 2 to 3 weeks without other associated symptoms. Workup did not reveal any obvious infection at the time. He was prescribed prednisone 60 mg x 5 days and notes significant improvement in his strength since starting the increasedprednisone dose. PLAN: - continue physical therapy. This was ordered by pain management. - continue prednisone at 15 mg po daily. - Continue pyridostigmine IR 60 mg by mouth four times a day - Continue baclofen 10 mg by mouth 3 times a day as needed for muscle cramps (may utilize 5 mg doseinstead of 10 mg if this helps with fatigue) - We have discussed the need for acute evaluation in the emergency department should his baseline shortness of breath worsen. The patient understands the importance of emergency evaluation to assess for life-threatening myasthenic crisis. We discussed this in detail, and he is clearly understandingof this risk and how to proceed should this happen - The patient is aware of the symptoms of myasthenic crisis and will notify the office if he experiences any of these Shortness of breath The patient has chronic shortness of breath primarily with exertion, and I suspect the etiology of this is LESS likely neurologic and more likely cardiac/exercise intolerance related. This remains stable today with no reported worsening. There is no evidence of ptosis, dysarthria, or fatigable weakness on exam today to suggest myasthenic crisis. PLAN: - Continue weight loss measures - Follow up with cardiology per their recommendations Class 3 severe obesity due to excess calories with serious comorbidity and body mass index (BMI) of45.0 to 49.9 in adult ([facility]) The patient is obese. PLAN: - We discussed the importance of continued weight loss measures (healthy diet and regular physical activity as tolerated) in order to improve the patient's health Low back pain at multiple sites The patient reports low back pain. He is established with pain management for this and is followingup with them closely. PLAN: - I offered EMG of the bilateral lower extremities and imaging of the lumbar spine for further evaluation here. The patient politely declined and states he is pursuing work up with pain management Ulnar neuropathy of both upper extremities Identified on [facility]UE EMG from 04/05/19. This remains clinically stable. Diagnosis and treatment options discussed in detail. All questions answered. Patient and understand and are agreeable to the plan. Discussion in layman's terms. Follow up in the office within 3 months; sooner if needed for new or worsening symptoms. documented in this encounterMadison Medical [id number] History of Present illness Narrative* Komal Nguyen MD - 10/05/2023 1:15 PM EST Subjective : Chief Complaint: Taurus Garcia is [...] by mouth in the morning. nystatin (Mycostatin) 751855 UNIT/GM powder APPLY TO THE AFFECTED AREA(S) [...] Yes Cognitive Screening Three Word Registration: Banana, Kirkman, Chair Clock Drawing: Normal Clock - 2 Three Word Recall: All 3 words correct - 3 Total Score (0-5 Points): 5 Pain Assessment Pain Score: 4 Advance Care Planning Do you have a living will?: Yes Do you have a medical power of city attorney?: Yes Who is your medical power of city attorney?: --gabrielle Objective : BP 134/82 Pulse [...] a living will and durable power of city attorney for healthcare. 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 No orders of the defined types were placed in this encounter. Electronically signed by Komal Nguyen MD on October 05, 2023 documented in this encounterMadison Medical [id number] Note [id number]#1.00[facility]02-05-2024 Telephone encounter Note* Telephone Encounter - Komal Nguyen MD - 09/25/2023 10:15 AM EST Lab order. [facility] [id number] Miscellaneous Notes* Telephone Encounter - Komal Nguyen MD - 09/25/2023 10:15 AM EST Lab order. documented in this [facility]01-31-2024 History of Present illness Narrative* Baltazar Hoover DO - 09/20/2023 11:40 AM EST Subjective Taurus Garcia is a 77 y.o. male Chief Complaint Follow-up 77-year-old gentleman returns for follow-up he is doing well, he has had no recurrent thromboembolic events or hospitalizations. He had myasthenia gravis crisis in April associated with respiratory failure and complicated by paroxysmal atrial fibrillation treated effectively with amiodarone andapixaban. He remains on both. He is still [...] mouth once daily., Disp: , Rfl: omega 2-cce-ykr-fish oil 360 mg-108 mg- 180 mg-1,200 mg [...] the direction and in the presence of Andreia Hoover DO. Assessment/Plan 1. Paroxysmal atrial fibrillation ([facility]) 2. Pulmonary embolism, unspecified chronicity, unspecified pulmonary embolism type, unspecified whether acute cor pulmonale present ([facility]) 3. Myasthenia gravis ([facility]) 4. High risk medication use 5. Essential hypertension 6. Mixed hyperlipidemia 7. Morbid obesity with BMI of 45.0-49.9, adult ([facility]) [facility] Work Phone: 1(945) 966-126701-31-2024 Instructions* Patient Instructions* Connie Morejon LPN - 09/20/2023 11:40 AM [...] Off amio,stop amio testing documented in [facility] Work Phone: 1(820) 331-849501-25-2024 [facility] SURGERY Clinical Discharge Summary PERSON INFORMATION Name TAURUS GARCIA Age 77 Years 1945 Sex MALE Language Kyrgyz PCP KOMAL NGUYEN Marital Status [facility] Service Ambulatory Surgery Acct# Arrival 09/14/2023 13:50:55 Visit Reason SURGERY - CYSTO BLADDER BIOPSY Acuity LOS 035 01:49 Address: [address] [place] [id number] Comment: PROVIDER INFORMATION VITALS INFORMATION Vital Sign [...] Oral (given by mouth) every day. hydrochlorothiazide-triamterene (hydrochlorothiazide-triamterene 25 mg-37.5 mg oral capsule) 1 cap(s) [...] Oral (given by mouth) every day. hydrochlorothiazide-triamterene (hydrochlorothiazide-triamterene 25 mg-37.5 mg oral capsule) 1 cap(s) [...] Oral (given by mouth) every day. hydrochlorothiazide-triamterene (hydrochlorothiazide-triamterene 25 mg-37.5 mg oral capsule) 1 cap(s) [...] oral tablet, extended release) (more content not included)...[facility] [id number] Discharge summary Author Silvestre Grover [facility] June 10, 2023 8:11am Note Date/Time June 10, 2023 8 :11am [facility] [address] [place] [address] Discharge Summary Signed Patient: Taurus Garcia MR#: [id number] : 1945 Acct:[id number] Age/Sex: 77 / M Adm Date: 3 Loc: Room: 6D7112-[address]: Silvestre Grover MD Copies to: [...] due to MG crisis. Patient presented to [facility] on 05/11/2023 with complaints of worseninggeneralized weakness over the course of several days. He was found to be mildlyhypoxic. Also complaining of urinary symptoms. Initially admitted to [facility] for observation however developed worsening respiratory status with increased secretions and inability to protect own airway and was subsequently intubated and transferred to [facility] for neurology services. Patient received a 5-day [...] Plan Discharge Plan Patient Disposition: [place] [facility] [place]: Ambulate as Tolerated Diet: Regular Additional [...] home prior. Your Home Health agency is [facility] ( ). They will contact you 24-48 hours after discharge to schedule a day/time to meet withyou at your home to establish care. You have been given prescriptions for new and/or needed medications. These prescriptions are for a one-time fill only, with no re-fills. For further re- fills going forward, you will need to address [...] call and check back for vaccine availability ([phone]). Prescriptions: New nystatin [Nystop] 100,000 unit/gram Powder [...] Location: Determined by Patient Ordered By: Silvestre DURAN Home Medical Equipment (Routine) Timeframe: [id number] Location: [...] signed by Silvestre Grover MD> 06/10/23 0811 [facility] Work Phone: 1(987) 442-377010-19-2023 Progress note Author Jarret Garza [facility] June 08, 2023 7:01am Note Date/Time June 07, 2023 5 :18pm [facility] [address] [place] [address] Hospitalist Progress Note Signed Patient: Taurus Garcia MR#: [id number] : 1945 Acct:[id number] Age/Sex: 77 / M Adm Date: 3 Loc: Room: [address] [place] [address] Type: ADM IN Attending Dr: Silvestre Grover [...] mg 05/21/23 14:25 Bisacodyl 10 Mg Supp.Rect AZ 05/20/24 14:24 DAILY PRN Constipation Docusate Sodium 100 mg 05/21/23 14:25 Docusate 100 Mg Capsule PO 05/20/24 14:24 BID PRN Constipation Docusate Sodium 283 mg 05/21/23 14:25 Docusate Enema 283 Mg/5 Ml Enema AZ 05/20/24 14:24 DAILY PRN Constipation Fish Oil 1,000 mg 05/21/23 21:00 06/07/23 09:38 Shaniko-3/Fish Oil 1,000 Mg Capsule PO 05/20/24 20:59 [...] 05/31/24 08:59 Not Given DAILY DORI Pyridostigmine Drybranch 60 mg 05/21/23 18:00 06/07/23 17:02 Pyridostigmine Drybranch 60 Mg Tablet PO 05/20/24 17:59 60 [...] signed by Jarret Garza MD> 06/08/23 0701 [facility] Work Phone: 1(857) 388-148410-18-2023 Progress note Author Silvestre Grover [facility] June 07, 2023 3:10pm Note Date/Time June 07, 2023 1 :12pm [facility] [address] [place] [address] Physiatry(Rehab) Progress Note Signed Patient: Taurus Garcia MR#: [id number] : 1945 Acct:[id number] Age/Sex: 77 / M Adm Date: 3 Loc: 5T Room: 9F2184-8 Type: ADM IN Attending Dr: Silvestre Grover [...] due to MG crisis. Patient presented to [facility] on 05/11/2023 with complaints of worseninggeneralized weakness over the course of several days. He was found to be mildlyhypoxic. Also complaining of urinary symptoms. Initially admitted to [facility] for observation however developed worsening respiratory status with increased secretions and inability to protect own airway and was subsequently intubated and transferred to [facility] for neurology services. Patient received a 5-day [...] mg 05/21/23 14:25 Bisacodyl 10 Mg Supp.Rect AZ 05/20/24 14:24 DAILY PRN Constipation Docusate Sodium 100 mg 05/21/23 14:25 Docusate 100 Mg Capsule PO 05/20/24 14:24 BID PRN Constipation Docusate Sodium 283 mg 05/21/23 14:25 Docusate Enema 283 Mg/5 Ml Enema AZ 05/20/24 14:24 DAILY PRN Constipation Fish Oil 1,000 mg 05/21/23 21:00 06/07/23 09:38 Shaniko-3/Fish Oil 1,000 Mg Capsule PO 05/20/24 20:59 [...] 05/31/24 08:59 Not Given DAILY DORI Pyridostigmine Drybranch 60 mg 05/21/23 18:00 06/07/23 09:39 Pyridostigmine Drybranch 60 Mg Tablet PO 05/20/24 17:59 60 [...] tab DAILY DORI Administration Assessment/Plan <Antonia Grier, WIRE TURNING MACHINE OPERATOR - Last Filed: 06/07/23 13:25> Assessment/Plan (1) [...] secondary to myasthenic crisis. Initially admitted to [facility] later transferred to [facility] for neurology services. Had to be intubated [...] equipment to enhance the patient's a functional anabaptist Ensure adequate nutrition and hydration Sleep: No concerns. Pain: Continue current regimen Discharge planning: Hopefully home with his end of week/early next week. I spent greater than 15 minutes for services, including nsvt-fc-geyx encounter with the patient, discussion of the case, plan of care, and exam; and ovuyorg-kd-leqw activities, such as reviewing pertinent health management consultant documentation, recent therapy notes, laboratory and radiology studies, and discussion of case with care team including physician, nursing, case management specialist, and therapists. More than 50 % of [...] Allied health note review, nursing note review, health management consultant note review, discussion with nursing and case management, and more than 50% of my time was spent on counseling and coordination of care, time spent 25 minutes Patient was personally seen by me, Dr. Grover, on the day of encounter, reviewed the history and the relevant portions of the chart, including current orders, allied health and health management consultant notes, labs/imaging and performed garcia elements of exam and I formulated the plan of care and facilitated the medical decision making. Documented By: Antonia Grier APRN 06/07/23 1 310 Signed By: <Electronically signed by ZACH Grier> 06/07/23 1325 <Electronically signed by Silvestre Grover MD> 06/07/23 7884 [facility] Work Phone: 1(353) 283-716110-17-2023 Progress note Author Silvestre Grover [facility] June 06, 2023 3:59pm Note Date/Time June 06, 2023 3 :59pm [facility] [address] [place], [place] [id number] Physiatry(Rehab) Progress Note Signed Patient: Taurus Garcia MR#: [id number] : 1945 Acct:[id number] Age/Sex: 77 / M Adm Date: 3 Loc: 5T Room: 6R3046-3 Type: ADM IN Attending Dr: Silvestre Grover MD Copies to: ~ Date of Service: 06/06/2023 Subjective Subjective Narrative: Mr. Garcia is a 77 year old male with past medical history of myasthenia gravis,hypertension, A-fib anticoagulated with Eliquis, PE, CKD, obstructive sleep apnea on BiPAP, who presents to acute inpatient rehab with functional impairments due to MG crisis. Patient presented to [facility] on 05/11/2023 with complaints of worseninggeneralized weakness over the course of several days. He was found to be mildlyhypoxic. Also complaining of urinary symptoms. Initially admitted to [facility] for observation however developed worsening respiratory status with increased secretions and inability to protect own airway and was subsequently intubated and transferred to [facility] for neurology services. Patient received a 5-day [...] mg 05/21/23 14:25 Bisacodyl 10 Mg Supp.Rect AZ 05/20/24 14:24 DAILY PRN Constipation Docusate Sodium 100 mg 05/21/23 14:25 Docusate 100 Mg Capsule PO 05/20/24 14:24 BID PRN Constipation Docusate Sodium 283 mg 05/21/23 14:25 Docusate Enema 283 Mg/5 Ml Enema AZ 05/20/24 14:24 DAILY PRN Constipation Fish Oil 1,000 mg 05/21/23 21:00 06/06/23 10:08 Shaniko-3/Fish Oil 1,000 Mg Capsule PO 05/20/24 20:59 [...] 05/31/24 08:59 Not Given DAILY DORI Pyridostigmine Drybranch 60 mg 05/21/23 18:00 06/06/23 14:39 Pyridostigmine Drybranch 60 Mg Tablet PO 05/20/24 17:59 60 [...] secondary to myasthenic crisis. Initially admitted to [facility] later transferred to [facility] for neurology services. Had to be intubated [...] equipment to enhance the patient's a functional anabaptist Ensure adequate nutrition and hydration Sleep: No concerns. Pain: Continue current regimen Discharge planning: Hopefully home with his end of week/early next week. Plan: I completed a substantive portion of this encounter, the medical decision making portion of this note in its entirety, including Allied health note review, nursing note review, health management consultant note review, discussion with nursing and case management, and more than 50% of my time was spent on counseling and coordination of care, time spent 25 minutes Patient was personally seen by me, Dr. Grover, on the day of encounter, reviewed the history and the relevant portions of the chart, including current orders, allied health and health management consultant notes, labs/imaging and performed garcia elements of exam and I formulated the plan of care and facilitated the medical decision making. Documented By: Silvestre Grover MD 06/06/23 1557 Signed By: <Electronically signed by Silvestre Grover MD> 06/06/23 1559 [facility] Work Phone: 1([phone]) 783-429810-17-2023 Hospital Discharge instructionsAmbulatory Orders* Initiate Home Health [...] home prior. Your Home Health agency is [facility] ( ). They will contact you 24-48 [...] call and check back for vaccine availability ([phone]).[facility] Work Phone: 1([phone]) 980-579610-17-2023 Progress note Author Silvestre Grover [facility] June 06, 2023 11:30am Note Date/Time June 05, 2023 1 :16pm [facility] [address] [place] [address] Physiatry(Rehab) Progress Note Signed Patient: Taurus Garcia MR#: [id number] : 1945 Acct:[id number] Age/Sex: 77 / M Adm Date: 3 Loc: Room: [address] [place] [address] Type: ADM IN Attending Dr: Silvestre Grover MD Copies to: ~ Date of Service: 06/05/2023 Subjective Subjective Narrative: Mr. Garcia is a 77 year old male with past medical history of myasthenia gravis,hypertension, A-fib anticoagulated with Eliquis, PE, CKD, obstructive sleep apnea on BiPAP, who presents to acute inpatient rehab with functional impairments due to MG crisis. Patient presented to [facility] on 05/11/2023 with complaints of worseninggeneralized weakness over the course of several days. He was found to be mildlyhypoxic. Also complaining of urinary symptoms. Initially admitted to [facility] for observation however developed worsening respiratory status with increased secretions and inability to protect own airway and was subsequently intubated and transferred to [facility] for neurology services. Patient received a 5-day [...] mg 05/21/23 14:25 Bisacodyl 10 Mg Supp.Rect AZ 05/20/24 14:24 DAILY PRN Constipation Docusate Sodium 100 mg 05/21/23 14:25 Docusate 100 Mg Capsule PO 05/20/24 14:24 BID PRN Constipation Docusate Sodium 283 mg 05/21/23 14:25 Docusate Enema 283 Mg/5 Ml Enema AZ 05/20/24 14:24 DAILY PRN Constipation Fish Oil 1,000 mg 05/21/23 21:00 06/05/23 08:04 Shaniko-3/Fish Oil 1,000 Mg Capsule PO 05/20/24 20:59 [...] 06/05/23 08:01 Lisinopril 20 Mg Tablet PO 10/01/24 08:59 20 mg DAILY DORI Administration Loperamide [...] 08:59 1 packet DAILY DORI Administration Pyridostigmine Drybranch 60 mg 05/21/23 18:00 06/05/23 08:03 Pyridostigmine Drybranch 60 Mg Tablet PO 05/20/24 17:59 60 [...] 08:02 Triamterene/Hctz 37.5-25mg 1 Tab Tablet PO 10/01/24 08:59 1 tab DAILY DORI Administration Assessment/Plan [...] secondary to myasthenic crisis. Initially admitted to [facility] later transferred to [facility] for neurology services. Had to be intubated [...] equipment to enhance the patient's a functional anabaptist Ensure adequate nutrition and hydration Sleep: No concerns. Pain: Continue current regimen Discharge planning: Hopefully home with his end of week/early next week. Plan: I completed a substantive portion of this encounter, the medical decision making portion of this note in its entirety, including Allied health note review, nursing note review, health management consultant note review, discussion with nursing and case management, and more than 50% of my time was spent on counseling and coordination of care, time spent 25 minutes Patient was personally seen by me, Dr. Grover, on the day of encounter, reviewed the history and the relevant portions of the chart, including current orders, allied health and health management consultant notes, labs/imaging and performed garcia elements of exam and I formulated the plan of care and facilitated the medical decision making. Documented By: Silvestre Grover MD 06/05/23 1316 Signed By: <Electronically signed by Silvestre Grover MD> 06/06/23 1130 [facility] Work Phone: 1(209) 127-367110-16-2023 Progress note Author Silvestre Grover [facility] June 05, 2023 11:41am Note Date/Time June 05, 2023 1 1:41am [facility] [address] [place] [address] Physiatry(Rehab) Progress Note Signed Patient: Taurus Garcia MR#: [id number] : 1945 Acct:[id number] Age/Sex: 77 / M Adm Date: 3 Loc: Room: [address] [place] [address] Type: ADM IN Attending Dr: Silvestre Grover MD Copies to: ~ Date of Service: 06/02/2023 Subjective Subjective Narrative: Mr. Garcia is a 77 year old male with past medical history of myasthenia gravis,hypertension, A-fib anticoagulated with Eliquis, PE, CKD, obstructive sleep apnea on BiPAP, who presents to acute inpatient rehab with functional impairments due to MG crisis. Patient presented to [facility] on 05/11/2023 with complaints of worseninggeneralized weakness over the course of several days. He was found to be mildlyhypoxic. Also complaining of urinary symptoms. Initially admitted to [facility] for observation however developed worsening respiratory status with increased secretions and inability to protect own airway and was subsequently intubated and transferred to [facility] for neurology services. Patient received a 5-day [...] mg 05/21/23 14:25 Bisacodyl 10 Mg Supp.Rect AZ 05/20/24 14:24 DAILY PRN Constipation Docusate Sodium 100 mg 05/21/23 14:25 Docusate 100 Mg Capsule PO 05/20/24 14:24 BID PRN Constipation Docusate Sodium 283 mg 05/21/23 14:25 Docusate Enema 283 Mg/5 Ml Enema AZ 05/20/24 14:24 DAILY PRN Constipation Fish Oil 1,000 mg 05/21/23 21:00 06/05/23 08:04 Shaniko-3/Fish Oil 1,000 Mg Capsule PO 05/20/24 20:59 [...] 08:59 1 packet DAILY DORI Administration Pyridostigmine Drybranch 60 mg 05/21/23 18:00 06/05/23 08:03 Pyridostigmine Drybranch 60 Mg Tablet PO 05/20/24 17:59 60 [...] secondary to myasthenic crisis. Initially admitted to [facility] later transferred to [facility] for neurology services. Had to be intubated [...] equipment to enhance the patient's a functional anabaptist Ensure adequate nutrition and hydration Sleep: No concerns. Pain: Continue current regimen Discharge planning: Hopefully home with his end of next week. Plan: I completed a substantive portion of this encounter, the medical decision making portion of this note in its entirety, including Allied health note review, nursing note review, health management consultant note review, discussion with nursing and case management, and more than 50% of my time was spent on counseling and coordination of care, time spent 25 minutes Patient was personally seen by me, Dr. Grover, on the day of encounter, reviewed the history and the relevant portions of the chart, including current orders, allied health and health management consultant notes, labs/imaging and performed garcia elements of exam and I formulated the plan of care and facilitated the medical decision making. Documented By: Silvestre Grover MD 06/05/23 1139 Signed By: <Electronically signed by Silvestre Grover MD> 06/05/23 1141 [facility] Work Phone: 1([phone]) 928-647110-14-2023 Progress note Author Fidel Bennett [facility] June 03, 2023 3:02pm Note Date/Time June 03, 2023 3 :02pm [facility] [address] [place] [address] Physiatry(Rehab) Progress Note Signed Patient: Taurus Garcia MR#: [id number] : 1945 Acct:[id number] Age/Sex: 77 / M Adm Date: 3 Loc: Room: 5X2426-1 Type: ADM IN Attending Dr: Silvestre Grover MD Copies to: ~ Date of Service: 06/03/2023 Subjective Subjective Narrative: Mr. Garcia is a 77 year old male with past medical history of myasthenia gravis,hypertension, A-fib anticoagulated with Eliquis, PE, CKD, obstructive sleep apnea on BiPAP, who presents to acute inpatient rehab with functional impairments due to MG crisis. Patient presented to [facility] on 05/11/2023 with complaints of worseninggeneralized weakness over the course of several days. He was found to be mildlyhypoxic. Also complaining of urinary symptoms. Initially admitted to [facility] for observation however developed worsening respiratory status with increased secretions and inability to protect own airway and was subsequently intubated and transferred to [facility] for neurology services. Patient received a 5-day [...] mg 05/21/23 14:25 Bisacodyl 10 Mg Supp.Rect AZ 05/20/24 14:24 DAILY PRN Constipation Docusate Sodium 100 mg 05/21/23 14:25 Docusate 100 Mg Capsule PO 05/20/24 14:24 BID PRN Constipation Docusate Sodium 283 mg 05/21/23 14:25 Docusate Enema 283 Mg/5 Ml Enema AZ 05/20/24 14:24 DAILY PRN Constipation Fish Oil 1,000 mg 05/21/23 21:00 06/03/23 09:45 Shaniko-3/Fish Oil 1,000 Mg Capsule PO 05/20/24 20:59 [...] 08:59 1 packet DAILY DORI Administration Pyridostigmine Drybranch 60 mg 05/21/23 18:00 06/03/23 14:48 Pyridostigmine Drybranch 60 Mg Tablet PO 05/20/24 17:59 60 [...] secondary to myasthenic crisis. Initially admitted to [facility] later transferred to [facility] for neurology services. Had to be intubated [...] equipment to enhance the patient's a functional anabaptist Ensure adequate nutrition and hydration Sleep: No concerns. Pain: Continue current regimen Discharge planning: Hopefully home with his end of next week. Plan: I completed a substantive portion of this encounter, the medical decision making portion of this note in its entirety, including Allied health note review, nursing note review, health management consultant note review, discussion with nursing and case management, and more than 50% of my time was spent on counseling and coordination of care, time spent 25 minutes Patient was personally seen by me, Dr. Bennett, on the day of encounter, reviewed the history and the relevant portions of the chart, including current orders, allied health and health management consultant notes, labs/imaging and performed garcia elements of exam and I formulated the plan of care and facilitated the medical decision making. Documented By: Fidel Bennett MD 1500 Signed By: <Electronically signed by Fidel Bennett MD> 06/03/23 0862 [facility] Work Phone: 1([phone]) 447-472710-13-2023 Progress note Author Silvestre Grover [facility] June 02, 2023 10:48am Note Date/Time June 01, 2023 1 :12pm [facility] [address] [place] [address] Physiatry(Rehab) Progress Note Signed Patient: Taurus Garcia MR#: [id number] : 1945 Acct:[id number] Age/Sex: 77 / M Adm Date: 3 Loc: Room: [address] [place] [address] Type: ADM IN Attending Dr: Silvestre Grover [...] due to MG crisis. Patient presented to [facility] on 05/11/2023 with complaints of worseninggeneralized weakness over the course of several days. He was found to be mildlyhypoxic. Also complaining of urinary symptoms. Initially admitted to [facility] for observation however developed worsening respiratory status with increased secretions and inability to protect own airway and was subsequently intubated and transferred to [facility] for neurology services. Patient received a 5-day [...] more active in therapy. This morning he [id number]+42+90 feet with a rolling walker with wheelchair [...] and affect appropriate. Normal speech. Objective <Antonia Cherrie, WIRE TURNING MACHINE OPERATOR - Last Filed: 06/01/23 13:12> Labs 05/30/23 [...] mg 05/21/23 14:25 Bisacodyl 10 Mg Supp.Rect AZ 05/20/24 14:24 DAILY PRN Constipation Docusate Sodium 100 mg 05/21/23 14:25 Docusate 100 Mg Capsule PO 05/20/24 14:24 BID PRN Constipation Docusate Sodium 283 mg 05/21/23 14:25 Docusate Enema 283 Mg/5 Ml Enema AZ 05/20/24 14:24 DAILY PRN Constipation Fish Oil 1,000 mg 05/21/23 21:00 06/01/23 10:05 Shaniko-3/Fish Oil 1,000 Mg Capsule PO 05/20/24 20:59 [...] 08:59 1 packet DAILY DORI Administration Pyridostigmine Drybranch 60 mg 05/21/23 18:00 06/01/23 10:05 Pyridostigmine Drybranch 60 Mg Tablet PO 05/20/24 17:59 60 [...] tab DAILY DORI Administration Assessment/Plan <Antonia Grier, WIRE TURNING MACHINE OPERATOR - Last Filed: 06/01/23 13:12> Assessment/Plan (1) [...] secondary to myasthenic crisis. Initially admitted to [facility] later transferred to [facility] for neurology services. Had to be intubated [...] equipment to enhance the patient's a functional anabaptist Ensure adequate nutrition and hydration Sleep: No concerns. Pain: Continue current regimen Discharge planning: Hopefully home with his end of next week. I spent greater than 15 minutes for services, including gtah-[id number] encounter with the patient, discussion of the case, plan of care, and exam; and apnhfsy-vu-pozp activities, such as reviewing pertinent health management consultant documentation, recent therapy notes, laboratory and radiology studies, and discussion of case with care team including physician, nursing, case management specialist, and therapists. More than 50 % of [...] chart, including current orders, allied health and health management consultant notes, labs/imaging and plan of care as above. Documented By: Antonia Grier APRN 06/01/23 1 304 Signed By: <Electronically signed by ZACH Grier> 06/01/23 1312 <Electronically signed by Silvestre Grover MD> 06/02/23 1043 [facility] Work Phone: 1(704) 976-581710-13-2023 Progress note Author Meera Yaya [facility] June 02, 2023 8:21am Note Date/Time May 31, 2023 2 :26pm [facility] [address] [place], [place] [id number] Hospitalist Progress Note Signed Patient: Taurus Garcia MR#: [id number] : 1945 Acct:[id number] Age/Sex: 77 / M Adm Date: 3 Loc: Room: [address] [place] [address] Type: ADM IN Attending Dr: Silvestre Grover [...] mg 05/21/23 14:25 Bisacodyl 10 Mg Supp.Rect AZ 05/20/24 14:24 DAILY PRN Constipation Docusate Sodium 100 mg 05/21/23 14:25 Docusate 100 Mg Capsule PO 05/20/24 14:24 BID PRN Constipation Docusate Sodium 283 mg 05/21/23 14:25 Docusate Enema 283 Mg/5 Ml Enema AZ 05/20/24 14:24 DAILY PRN Constipation Fish Oil 1,000 mg 05/21/23 21:00 05/31/23 07:49 Shaniko-3/Fish Oil 1,000 Mg Capsule PO 05/20/24 20:59 [...] Packet PO 05/31/24 08:59 DAILY DORI Pyridostigmine Drybranch 60 mg 05/21/23 18:00 05/31/23 14:13 Pyridostigmine Drybranch 60 Mg Tablet PO 05/20/24 17:59 60 [...] pulmonary embolism?apixaban 3. HLD? atorvastatin Documented By: NAZANIN Benitez 3 1426 Signed By: <Electronically signed by ANP-BC Meera Javier> 06/02/23 0821 [facility] Work Phone: 1([phone]) 335-927310-11-2023 Progress note Author Silvestre Grover [facility] May 31, 2023 10:21am Note Date/Time May 31, 2023 1 0:17am [facility] [address] [place] [address] Physiatry(Rehab) Progress Note Signed Patient: Taurus Garcia MR#: [id number] : 1945 Acct:[id number] Age/Sex: 77 / M Adm Date: 3 Loc: 5T Room: [address] [place] [address] Type: ADM IN Attending Dr: Silvestre Grover MD Copies to: ~ Date of Service: 05/31/2023 Subjective Subjective Narrative: Mr. Garcia is a 77 year old male with past medical history of myasthenia gravis,hypertension, A-fib anticoagulated with Eliquis, PE, CKD, obstructive sleep apnea on BiPAP, who presents to acute inpatient rehab with functional impairments due to MG crisis. Patient presented to [facility] on 05/11/2023 with complaints of worseninggeneralized weakness over the course of several days. He was found to be mildlyhypoxic. Also complaining of urinary symptoms. Initially admitted to [facility] for observation however developed worsening respiratory status with increased secretions and inability to protect own airway and was subsequently intubated and transferred to [facility] for neurology services. Patient received a 5-day [...] mg 05/21/23 14:25 Bisacodyl 10 Mg Supp.Rect AZ 05/20/24 14:24 DAILY PRN Constipation Docusate Sodium 100 mg 05/21/23 14:25 Docusate 100 Mg Capsule PO 05/20/24 14:24 BID PRN Constipation Docusate Sodium 283 mg 05/21/23 14:25 Docusate Enema 283 Mg/5 Ml Enema AZ 05/20/24 14:24 DAILY PRN Constipation Fish Oil 1,000 mg 05/21/23 21:00 05/31/23 07:49 Shaniko-3/Fish Oil 1,000 Mg Capsule PO 05/20/24 20:59 [...] 08:59 10 mg DAILY DORI Administration Pyridostigmine Drybranch 60 mg 05/21/23 18:00 05/31/23 07:50 Pyridostigmine Drybranch 60 Mg Tablet PO 05/20/24 17:59 60 [...] secondary to myasthenic crisis. Initially admitted to [facility] later transferred to [facility] for neurology services. Had to be intubated [...] equipment to enhance the patient's a functional anabaptist Ensure adequate nutrition and hydration Sleep: No concerns. Pain: Continue current regimen Discharge planning: Hopefully home with his end of next week. Plan: I completed a substantive portion of this encounter, the medical decision making portion of this note in its entirety, including Allied health note review, nursing note review, health management consultant note review, discussion with nursing and case management, and more than 50% of my time was spent on counseling and coordination of care, time spent 25 minutes Patient was personally seen by me, Dr. Grover, on the day of encounter, reviewed the history and the relevant portions of the chart, including current orders, allied health and health management consultant notes, labs/imaging and performed garcia elements of exam and I formulated the plan of care and facilitated the medical decision making. Documented By: Silvestre Grover MD 05/31/23 1017 Signed By: <Electronically signed by Silvestre Grover MD> 05/31/23 1021 [facility] Work Phone: 1([phone]) 572-373310-10-2023 Progress note Author Silvestre Grover [facility] May 30, 2023 12:01pm Note Date/Time May 30, 2023 1 2:01pm [facility] [address] [place] [address] Physiatry(Rehab) Progress Note Signed Patient: Taurus Garcia MR#: [id number] : 1945 Acct:[id number] Age/Sex: 77 / M Adm Date: 3 Loc: Room: [address] [place] [address] Type: ADM IN Attending Dr: Silvestre Grover MD Copies to: ~ Date of Service: 05/30/2023 Subjective Subjective Narrative: Mr. Garcia is a 77 year old male with past medical history of myasthenia gravis,hypertension, A-fib anticoagulated with Eliquis, PE, CKD, obstructive sleep apnea on BiPAP, who presents to acute inpatient rehab with functional impairments due to MG crisis. Patient presented to [facility] on 05/11/2023 with complaints of worseninggeneralized weakness over the course of several days. He was found to be mildlyhypoxic. Also complaining of urinary symptoms. Initially admitted to [facility] for observation however developed worsening respiratory status with increased secretions and inability to protect own airway and was subsequently intubated and transferred to [facility] for neurology services. Patient received a 5-day [...] % (Auto) 51.5 Lymph % (Auto) 29.7 [place] % (Auto) 14.8 Eos % (Auto) 3.8 Baso % (Auto) 0.2 Nucleat RBC Rel Count 0.2 Neut # (Auto) 2.9 Lymph # (Auto) 1.7 [place] # (Auto) 0.8 Eos # (Auto) 0.2 [...] mg 05/21/23 14:25 Bisacodyl 10 Mg Supp.Rect AZ 05/20/24 14:24 DAILY PRN Constipation Docusate Sodium 100 mg 05/21/23 14:25 Docusate 100 Mg Capsule PO 05/20/24 14:24 BID PRN Constipation Docusate Sodium 283 mg 05/21/23 14:25 Docusate Enema 283 Mg/5 Ml Enema AZ 05/20/24 14:24 DAILY PRN Constipation Fish Oil 1,000 mg 05/21/23 21:00 05/30/23 08:30 Shaniko-3/Fish Oil 1,000 Mg Capsule PO 05/20/24 20:59 [...] 08:59 10 mg DAILY DORI Administration Pyridostigmine Drybranch 60 mg 05/21/23 18:00 05/30/23 08:30 Pyridostigmine Drybranch 60 Mg Tablet PO 05/20/24 17:59 60 [...] secondary to myasthenic crisis. Initially admitted to [facility] later transferred to [facility] for neurology services. Had to be intubated [...] equipment to enhance the patient's a functional anabaptist Ensure adequate nutrition and hydration Sleep: No concerns. Pain: Continue current regimen Discharge planning: Hopefully home with his end of next week. Plan: I completed a substantive portion of this encounter, the medical decision making portion of this note in its entirety, including Allied health note review, nursing note review, health management consultant note review, discussion with nursing and case management, and more than 50% of my time was spent on counseling and coordination of care, time spent 25 minutes Patient was personally seen by me, Dr. Grover, on the day of encounter, reviewed the history and the relevant portions of the chart, including current orders, allied health and health management consultant notes, labs/imaging and performed garcia elements of exam and I formulated the plan of care and facilitated the medical decision making. Documented By: Silvestre Grover MD 05/30/23 9057 Signed By: <Electronically signed by Silvestre Grover MD> 05/30/23 1202 [facility] Work Phone: 1([phone]) 237-998210-09-2023 Progress note Author Silvestre Grover [facility] May 29, 2023 1:20pm Note Date/Time May 29, 2023 11 :42am [facility] [address] [place] [address] Physiatry(Rehab) Progress Note Signed Patient: Taurus Garcia MR#: [id number] : 1945 Acct:[id number] Age/Sex: 77 / M Adm Date: 3 Loc: Room: [address] [place] [address] Type: ADM IN Attending Dr: Silvestre Grover [...] due to MG crisis. Patient presented to [facility] on 05/11/2023 with complaints of worseninggeneralized weakness over the course of several days. He was found to be mildlyhypoxic. Also complaining of urinary symptoms. Initially admitted to [facility] for observation however developed worsening respiratory status with increased secretions and inability to protect own airway and was subsequently intubated and transferred to [facility] for neurology services. Patient received a 5-day [...] and affect appropriate. Normal speech. Objective <Antonia Cherrie, WIRE TURNING MACHINE OPERATOR - Last Filed: 05/29/23 11:42> Labs 05/22/23 [...] mg 05/21/23 14:25 Bisacodyl 10 Mg Supp.Rect AZ 05/20/24 14:24 DAILY PRN Constipation Docusate Sodium 100 mg 05/21/23 14:25 Docusate 100 Mg Capsule PO 05/20/24 14:24 BID PRN Constipation Docusate Sodium 283 mg 05/21/23 14:25 Docusate Enema 283 Mg/5 Ml Enema AZ 05/20/24 14:24 DAILY PRN Constipation Fish Oil 1,000 mg 05/21/23 21:00 05/29/23 08:28 Shaniko-3/Fish Oil 1,000 Mg Capsule PO 05/20/24 20:59 [...] 08:59 10 mg DAILY DORI Administration Pyridostigmine Drybranch 60 mg 05/21/23 18:00 05/29/23 08:29 Pyridostigmine Drybranch 60 Mg Tablet PO 05/20/24 17:59 60 mg QID DORI Administration Sennosides 2 tab 05/22/23 12:00 Sennosides 8.6 Mg Tablet PO 05/21/24 11:59 DAILY@12 PRN If no BM in 2 days Triamterene/Hydrochlorothiazide 1 tab 05/22/23 09:00 05/29/23 08:28 Triamterene/Hctz 37.5-25mg 1 Tab Tablet PO 05/21/24 08:59 1 tab DAILY DORI Administration Assessment/Plan <Antonia Grier APRN - Last Filed: 05/29/23 11:42> Assessment/Plan (1) [...] secondary to myasthenic crisis. Initially admitted to [facility] later transferred to [facility] for neurology services. Had to be intubated [...] equipment to enhance the patient's a functional anabaptist Ensure adequate nutrition and hydration Sleep: No concerns. Pain: Continue current regimen Discharge planning: Hopefully home with his in 3 weeks. I spent greater than 15 minutes for services, including dnxw-ro-sxuf encounter with the patient, discussion of the case, plan of care, and exam; and chhimjy-fz-zjuj activities, such as reviewing pertinent health management consultant documentation, recent therapy notes, laboratory and radiology studies, and discussion of case with care team including physician, nursing, case management specialist, and therapists. More than 50 % of [...] Allied health note review, nursing note review, health management consultant note review, discussion with nursing and case management, and more than 50% of my time was spent on counseling and coordination of care, time spent 25 minutes Patient was personally seen by me, Dr. Grover, on the day of encounter, reviewed the history and the relevant portions of the chart, including current orders, allied health and health management consultant notes, labs/imaging and performed garcia elements of exam and I formulated the plan of care and facilitated the medical decision making. Discontinue harrell as mobility improves. Making good functional progress. Documented By: Antoniatoni Grier APRN 05/29/23 1 133 Signed By: <Electronically signed by ZACH Grier> 05/29/23 1142 <Electronically signed by Silvestre Grover MD> 05/29/23 1320 [facility] Work Phone: 1(426) 497-950310-06-2023 Progress note Author Silvestre Grover [facility] May 26, 2023 3:42pm Note Date/Time May 25, 2023 11 :38am [facility] [address] [place] [address] Physiatry(Rehab) Progress Note Signed Patient: Taurus Garcia MR#: [id number] : 1945 Acct:[id number] Age/Sex: 77 / M Adm Date: 3 Loc: 5T Room: 8G7520-5 Type: ADM IN Attending Dr: Silvestre Grover [...] due to MG crisis. Patient presented to [facility] on 05/11/2023 with complaints of worseninggeneralized weakness over the course of several days. He was found to be mildlyhypoxic. Also complaining of urinary symptoms. Initially admitted to [facility] for observation however developed worsening respiratory status with increased secretions and inability to protect own airway and was subsequently intubated and transferred to [facility] for neurology services. Patient received a 5-day [...] and affect appropriate. Normal speech. Objective <Antonia Contrerastonya, WIRE TURNING MACHINE OPERATOR - Last Filed: 05/25/23 11:50> Labs 05/22/23 [...] mg 05/21/23 14:25 Bisacodyl 10 Mg Supp.Rect AZ 05/20/24 14:24 DAILY PRN Constipation Docusate Sodium 100 mg 05/21/23 14:25 Docusate 100 Mg Capsule PO 05/20/24 14:24 BID PRN Constipation Docusate Sodium 283 mg 05/21/23 14:25 Docusate Enema 283 Mg/5 Ml Enema [place] 05/20/24 14:24 DAILY PRN Constipation Fish Oil 1,000 mg 05/21/23 21:00 05/25/23 09:34 Shaniko-3/Fish Oil 1,000 Mg Capsule PO 05/20/24 20:59 [...] 08:59 10 mg DAILY DORI Administration Pyridostigmine Drybranch 60 mg 05/21/23 18:00 05/25/23 09:27 Pyridostigmine Drybranch 60 Mg Tablet PO 05/20/24 17:59 60 mg QID DORI Administration Sennosides 2 tab 05/22/23 12:00 Sennosides 8.6 Mg Tablet PO 05/21/24 11:59 DAILY@12 PRN If no BM in 2 days Triamterene/Hydrochlorothiazide 1 tab 05/22/23 09:00 05/25/23 09:27 Triamterene/Hctz 37.5-25mg 1 Tab Tablet PO 05/21/24 08:59 1 tab DAILY DORI Administration Assessment/Plan <Antonia GrierALICIAN - Last Filed: 05/25/23 11:50> Assessment/Plan (1) [...] secondary to myasthenic crisis. Initially admitted to [facility] later transferred to [facility] for neurology services. Had to be intubated [...] equipment to enhance the patient's a functional anabaptist Ensure adequate nutrition and hydration Sleep: No concerns. Pain: Continue current regimen Discharge planning: Hopefully home with his in 3 weeks. I spent greater than 15 minutes for services, including nzje-jh-vueb encounter with the patient, discussion of the case, plan of care, and exam; and jaqgetk-bm-dtuf activities, such as reviewing pertinent health management consultant documentation, recent therapy notes, laboratory and radiology studies, and discussion of case with care team including physician, nursing, case management specialist, and therapists. More than 50 % of [...] Allied health note review, nursing note review, health management consultant note review, discussion with nursing and case management, and more than 50% of my time was spent on counseling and coordination of care, time spent 25 minutes Patient was personally seen by me, Dr. Grover, on the day of encounter, reviewed the history and the relevant portions of the chart, including current orders, allied health and health management consultant notes, labs/imaging and performed garcia elements of exam and I formulated the plan of care and facilitated the medical decision making. Documented By: Antonia Grier APRN 05/25/23 1 136 Signed By: <Electronically signed by ZACH Grier> 05/25/23 1150 <Electronically signed by Silvestre Grover MD> 05/26/23 3966 [facility] Work Phone: 1([phone]) 407-689110-05-2023 Progress note Author Silvestre Grover [facility] May 25, 2023 8:34am Note Date/Time May 24, 2023 1: 11pm [facility] [address] [place] [address] Physiatry(Rehab) Progress Note Signed Patient: Taurus Garcia MR#: [id number] : 1945 Acct:[id number] Age/Sex: 77 / M Adm Date: 3 Loc: Room: [address] [place] [address] Type: ADM IN Attending Dr: Silvestre Grover MD Copies to: ~ Date of Service: 05/24/2023 Subjective Subjective Narrative: Mr. Garcia is a 77 year old male with past medical history of myasthenia gravis,hypertension, A-fib anticoagulated with Eliquis, PE, CKD, obstructive sleep apnea on BiPAP, who presents to acute inpatient rehab with functional impairments due to MG crisis. Patient presented to [facility] on 05/11/2023 with complaints of worseninggeneralized weakness over the course of several days. He was found to be mildlyhypoxic. Also complaining of urinary symptoms. Initially admitted to [facility] for observation however developed worsening respiratory status with increased secretions and inability to protect own airway and was subsequently intubated and transferred to [facility] for neurology services. Patient received a 5-day [...] mg 05/21/23 14:25 Bisacodyl 10 Mg Supp.Rect AZ 05/20/24 14:24 DAILY PRN Constipation Docusate Sodium 100 mg 05/21/23 14:25 Docusate 100 Mg Capsule PO 05/20/24 14:24 BID PRN Constipation Docusate Sodium 283 mg 05/21/23 14:25 Docusate Enema 283 Mg/5 Ml Enema AZ 05/20/24 14:24 DAILY PRN Constipation Fish Oil 1,000 mg 05/21/23 21:00 05/24/23 08:33 Shaniko-3/Fish Oil 1,000 Mg Capsule PO 05/20/24 20:59 [...] 08:59 10 mg DAILY DORI Administration Pyridostigmine Drybranch 60 mg 05/21/23 18:00 05/24/23 08:33 Pyridostigmine Drybranch 60 Mg Tablet PO 05/20/24 17:59 60 [...] secondary to myasthenic crisis. Initially admitted to [facility] later transferred to [facility] for neurology services. Had to be intubated [...] equipment to enhance the patient's a functional anabaptist Ensure adequate nutrition and hydration Sleep: No concerns. Pain: Continue current regimen Discharge planning: Hopefully home with his in 3 weeks. Plan: I completed a substantive portion of this encounter, the medical decision making portion of this note in its entirety, including Allied health note review, nursing note review, health management consultant note review, discussion with nursing and case management, and more than 50% of my time was spent on counseling and coordination of care, time spent 20 minutes Patient was personally seen by me, Dr. Grover, on the day of encounter, reviewed the history and the relevant portions of the chart, including current orders, allied health and health management consultant notes, labs/imaging and performed garcia elements of exam and I formulated the plan of care and facilitated the medical decision making. Documented By: Silvestre Grover MD 05/24/23 1310 Signed By: <Electronically signed by Silvestre Grover MD> 05/25/23 0834 [facility] Work Phone: 1([phone] 177-161510-03-2023 Consult note Author Jarret Garza [facility] May 23, 2023 2:28pm Note Date/Time May 22, 2023 4: 54pm [facility] [address] [place] [address] Hospitalist Consult Note Signed Patient: Taurus Garcia MR#: [id number] : 1945 Acct:[id number] Age/Sex: 77 / M Adm Date: 3 Loc: Room: [address] [place] [address] Type: ADM IN Attending Dr: Silvestre Grover [...] CKD, PE(On Eliquis) who was admitted to [facility] 05/09 for generalized weakness and was also found to be mildly hypoxic. He was intubated there then transferred to [facility] for evaluation and treatment of suspected acute [...] mg PO DAILY 12/27/17 [History Confirmed 05/21/23] hvnkzxhk-dne-xvrzi acid 0.4 mg-lycopene 300 mcg-lutein 250 mcg [...] mg 05/21/23 14:25 Bisacodyl 10 Mg Supp.Rect AZ 05/20/24 14:24 DAILY PRN Constipation Docusate Sodium 100 mg 05/21/23 14:25 Docusate 100 Mg Capsule PO 05/20/24 14:24 BID PRN Constipation Docusate Sodium 283 mg 05/21/23 14:25 Docusate Enema 283 Mg/5 Ml Enema AZ 05/20/24 14:24 DAILY PRN Constipation Fish Oil 1,000 mg 05/21/23 21:00 05/22/23 08:58 Shaniko-3/Fish Oil 1,000 Mg Capsule PO 05/20/24 20:59 [...] 08:59 10 mg DAILY DORI Administration Pyridostigmine Drybranch 60 mg 05/21/23 18:00 05/22/23 14:40 Pyridostigmine Drybranch 60 Mg Tablet PO 05/20/24 17:59 60 [...] Creatinine Clear 100.28, Sodium 141, Potassium 3.7, [id number], Carbon Dioxide 30.8, Anion Gap 7.9, BUN [...] % (Auto) 63.1, Lymph % (Auto) 20.4, [place] % (Auto) 10.8, Eos % (Auto) 5.4, Baso % (Auto) 0.3, Nucleat RBC Rel Count 0.1, Neut # (Auto) 4.6, Lymph # (Auto) 1.5, [place] # (Auto) 0.8, Eos # (Auto) 0.4, [...] signed by Jarret Garza MD> 05/23/23 1428 [facility] Work Phone: 1([phone]) 137-593710-02-2023 History and physical note Author Silvestre Grover [facility] May 22, 2023 3:50pm Note Date/Time May 22, 2023 10 :42am [facility] [address] [place] [address] Physiatry (Rehab) H&P Signed Patient: Taurus Garcia MR#: [id number] : 1945 Acct:[id number] Age/Sex: 77 / M Adm Date: 3 Loc: Room: 9B2876-3 Type: ADM IN Attending Dr: Silvestre Grover [...] due to MG crisis. Patient presented to [facility] on 05/11/2023 with complaints of worseninggeneralized weakness over the course of several days. He was found to be mildlyhypoxic. Also complaining of urinary symptoms. Initially admitted to [facility] for observation however developed worsening respiratory status with increased secretions and inability to protect own airway and was subsequently intubated and transferred to [facility] for neurology services. Patient received a 5-day [...] mg PO DAILY 12/27/17 [History Confirmed 05/21/23] hcsyxwrm-szp-xhhtm acid 0.4 mg-lycopene 300 mcg-lutein 250 mcg [...] Bisacodyl (Bisacodyl 10 Mg Supp.Rect) 10 mg AZ DAILY PRN PRN Reason: Constipation Stop: 05/20/24 14:24 Docusate Sodium (Docusate 100 Mg Capsule) 100 mg PO BID PRN PRN Reason: Constipation Stop: 05/20/24 14:24 Docusate Sodium (Docusate Enema 283 Mg/5 Ml Enema) 283 mg AZ DAILY PRN PRN Reason: Constipation Stop: 05/20/24 14:24 Fish Oil (Shaniko-3/Fish Oil 1,000 Mg Capsule) 1,000 mg PO [...] Admin: 05/22/23 08:58 Dose: 10 mg Pyridostigmine Drybranch (Pyridostigmine Drybranch 60 Mg Tablet) 60 mg PO QID [...] % (Auto) 63.1 Lymph % (Auto) 20.4 [place] % (Auto) 10.8 Eos % (Auto) 5.4 Baso % (Auto) 0.3 Nucleat RBC Rel Count 0.1 Neut # (Auto) 4.6 Lymph # (Auto) 1.5 [place] # (Auto) 0.8 Eos # (Auto) 0.4 [...] 3 weeks Expected Discharge Destination: Home Rehabilitation [facility]: 03.8 Primary Diagnosis: Myasthenic crisis To have patient become more independent and to return home. Medical/ Functional Prognosis: Good Anticipated Functional Outcomes/Goals and Interventions: 1.Therapy Functional Outcome/Goal: Anticipate min assist bed mobility Anticipated interventions: Physician management, PT, OT, DRAPERY CUTTER MACHINE, , Dietitian, RehabNursing, Case management 2. Therapy Functional Outcome/Goal: Anticipate standby assist transfers Anticipated interventions: Physician management, PT, OT, DRAPERY CUTTER MACHINE, Case management, Dietitian, Rehab Nursing 3. Therapy Functional Outcome/Goal: Anticipate min assist ambulation Anticipated interventions: Physician management, PT, OT, DRAPERY CUTTER MACHINE Case management, Dietitian, Rehab Nursing 4.Therapy Functional Outcome/Goal: Anticipate min assist self-care Anticipated interventions: Physician management, PT, OT, DRAPERY CUTTER MACHINE, Case management, Dietitian, Rehab Nursing 5.Therapy Functional Outcome/Goal: Anticipate min assist swallowing. Anticipated interventions: Physician management, PT, OT, DRAPERY CUTTER MACHINE, Case management, Dietitian, Rehab Nursing Required Therapy [...] additional therapy on as needed basis. Comments: DRAPERY CUTTER MACHINE to evaluate and treat patient?s cognition, language and communication skills, assess swallow function. Other: Dietitian, Rehab nursing, Wound, P&O, Neuropsychology as needed RATIONALE FOR IRF ADMISSION: Patient has both medical and functional complexities that require 24 hour daily monitoring and intervention from [employer] W[employer] Officer as well as other consulting physicians including internal medicine as well as 24 hour daily budget manager nursing - for medical safe / optimal management. Patient requires interdisciplinary therapy team rehabilitation care including OT, PT, DRAPERY CUTTER MACHINE, SW, Psychology, Rehab Nursing, requires and can [...] impairments secondaryto myasthenic crisis. Initially admitted to [facility] later transferred[facility] for neurology services. Had to be intubated [...] equipment to enhance the patient's a functional anabaptist Ensure adequate nutrition and hydration Sleep: No concerns. Pain: Continue current regimen Discharge planning: Hopefully home with his in 10 to 14 days. I spent greater than 45 minutes for services, including rsns-nh-onug encounter with the patient, discussion of the case, plan of care, and exam; and lhqbxpn-jo-tuvw activities, such as reviewing pertinent health management consultant documentation, recent therapy notes, laboratory and radiology studies, and discussion of case with care team including physician, nursing, case management specialist, and therapists. More than 50 % of [...] Allied health note review, nursing note review, health management consultant note review, discussion with nursing and case management, and more than 50% of my time was spent on counseling and coordination of care, time spent 70 minutes Patient was personally seen by me, Dr. Grover, on the day of encounter, reviewed the history and the relevant portions of the chart, including current orders, allied health and health management consultant notes, labs/imaging and performed garcia elements of exam and I formulated the plan of care and facilitated the medical decision making. Documented By: Antonia Grier APRN 05/22/23 1 040 Signed By: <Electronically signed by ZACH Grier> 05/22/23 1148 <Electronically signed by Silvestre Grover MD> 05/22/23 1550 [facility] Work Phone: 1(244) 200-130809-30-2023 Progress note Author Suraj Razo [facility] May 20, 2023 8:14am Note Date/Time May 20, 2023 8:10am [facility] [address] [place] [address] Hospitalist Progress Note Signed Patient: Taurus Garcia MR#: [id number] : 1945 Acct:[id number] Age/Sex: 77 / M Adm Date: 3 Loc: Room: [address] [place] [address] Type: ADM IN Attending Dr: Suraj Razo MD Copies to: ~ Date of Service: 05/20/2023 Subjective Subjective Narrative: Assessment And Plan 77M with PMH of HTN, HLD, Myasthenia Gravis (Dx 2016), CKD, PE(On Eliquis) who was admitted to [facility] 05/09 for generalized weakness. He was intubated [...] 08:59 10 mg DAILY DORI Administration Pyridostigmine Drybranch 60 mg 05/18/23 14:00 05/19/23 21:30 Pyridostigmine Drybranch 60 Mg Tablet PO 05/17/24 13:59 60 mg QID DORI Administration A&P - Hospitalist Assessment/Plan (1) Acute exacerbation of myasthenia gravis: (2) Acute respiratory failure with hypoxia: (3) CKD (chronic kidney disease) stage 3, GFR 30-59 ml/min: Plan . Documented By: Suraj Razo MD 05/20/23 0809 Signed By: <Electronically signed by Suraj Razo MD> 05/20/23 0814 [facility] Work Phone: [phone]) 117-381009-29-2023 Progress note Author Suraj Razo [facility] May 19, 2023 1:42pm Note Date/Time May 19, 2023 1:42pm [facility] [address] [place] [address] Hospitalist Progress Note Signed Patient: Taurus Garcia MR#: [id number] : 1945 Acct:[id number] Age/Sex: 77 / M Adm Date: 3 Loc: Room: [address] [place] [address] Type: ADM IN Attending Dr: Suraj Razo MD Copies to: ~ Date of Service: 05/19/2023 Subjective Subjective Narrative: Assessment And Plan 77M with PMH of HTN, HLD, Myasthenia Gravis (Dx 2016), CKD, PE(On Eliquis) who was admitted to [facility] 05/09 for generalized weakness. He was intubated [...] 08:59 10 mg DAILY DORI Administration Pyridostigmine Drybranch 60 mg 05/18/23 14:00 05/19/23 08:28 Pyridostigmine Drybranch 60 Mg Tablet PO 05/17/24 13:59 60 mg QID DORI Administration A&P - Hospitalist Assessment/Plan (1) Acute exacerbation of myasthenia gravis: (2) Acute respiratory failure with hypoxia: (3) CKD (chronic kidney disease) stage 3, GFR 30-59 ml/min: Plan . Documented By: Suraj Razo MD 05/19/231339 Signed By: <Electronically signed by Suraj Razo MD> 05/19/23 1342 [facility] Work Phone: 1(339) 898-513509-29-2023 Progress note Author Stanley Burt [facility] May 19, 2023 11:15am Note Date/Time May 19, 2023 8:43am [facility] [address] [place] [address] Pulmonology Progress Note Signed Patient: Taurus Garcia MR#: [id number] : 1945 Acct:[id number] Age/Sex: 77 / M Adm Date: 3 Loc: Room: [address] [place] [address] Type: ADM IN Attending Dr: Suraj Razo [...] <Electronically signed by MD Stanley Burt> 05/19/23 1115 [facility] Work Phone: [phone]) [phone] Progress note Author Silvestre Grover [facility] May 19, 2023 10:51am Note Date/Time May 19, 2023 10:03am [facility] [address] [place] [address] Physiatry(Rehab) Progress Note Signed Patient: Taurus Garcia MR#: [id number] : 1945 Acct:[id number] Age/Sex: 77 / M Adm Date: 3 Loc: Room: [address] [place] [address] Type: ADM IN Attending Dr: Suraj Razo [...] to feel generally weak, he presented to [facility] and was subsequently intubated and transferred to [...] % (Auto) 53.7 Lymph % (Auto) 22.1 [place] % (Auto) 10.0 Eos % (Auto) 13.8 Baso % (Auto) 0.4 Nucleat RBC Rel Count 0.2 Neut # (Auto) 2.7 Lymph # (Auto) 1.1 [place] # (Auto) 0.5 Eos # (Auto) 0.7 [...] 08:59 10 mg DAILY DORI Administration Pyridostigmine Drybranch 60 mg 05/18/23 14:00 05/19/23 08:28 Pyridostigmine Drybranch 60 Mg Tablet PO 05/17/24 13:59 60 [...] for myasthenic crisis, intubated on admission to [facility], just extubated 05/15, being evaluated for possible [...] Allied health note review, nursing note review, health management consultant note review, discussion with nursing and case management, and more than 50% of my time was spent on counseling and coordination of care, time spent 30 minutes Patient was personally seen by me, Dr. Grover, on the day of encounter, reviewed the history and the relevant portions of the chart, including current orders, allied health and health management consultant notes, labs/imaging and performed garcia elements of exam and I formulated the plan of care and facilitated the medical decision making. Documented By: Silvestre Grover MD 05/19/23 1003 Signed By: <Electronically signed by Silvestre Grover MD> 05/19/23 1051 [facility] Work Phone: [phone]) 614-473109-28-2023 Consult note Author Pat Hoover [facility] May 18, 2023 6:00pm Note Date/Time May 18, 2023 6:00pm [facility] [address] [place] [address] Cardiology Consult Note Signed Patient: Taurus Garcia MR#: [id number] : 1945 Acct:[id number] Age/Sex: 77 / M Adm Date: 3 Loc: Room: [address] [place] [address] Type: ADM IN Attending Dr: Suraj Razo [...] activity Respiratory Respiratory: Reports as per [facility] Medical History Acute exacerbation of myasthenia gravis [...] mg PO DAILY 12/27/17 [History Confirmed 05/10/23] zefupkqe-qhq-xsfhq acid 0.4 mg-lycopene 300 mcg-lutein 250 mcg [...] x10E3/uL Lymph # (Auto) 1.0 (1.00-4.8) x10E3/uL [place] # (Auto) 0.4 (0.0-0.8) x10E3/uL Eos # [...] 5 250 / 250 % in Water [place] 241 ml @ 0.5 MG/MIN 16.667 mls/hr IV .Q15H [facility] Rx#:[id number] Oral 60 / 460 400 / 460 [...] 05/18/23 1800 [facility] Work Phone: [phone]) 519-946109-28-2023 Progress note Author Stanley Burt [facility] May 18, 2023 4:48pm Note Date/Time May 18, 2023 8:38am [facility] [address] [place] [address] Pulmonology Progress Note Signed Patient: Taurus Garcia MR#: [id number] : 1945 Acct:[id number] Age/Sex: 77 / M Adm Date: 3 Loc: Room: [address] [place] [address] Type: ADM IN Attending Dr: Suraj Razo [...] signed by MD Stanley Burt> 05/18/23 1648 [facility] Work Phone: [phone] Progress note Author Suraj Razo [facility] May 18, 2023 12:58pm Note Date/Time May 18, 2023 12:55pm [facility] [address] [place] [address] Hospitalist Progress Note Signed Patient: Taurus Garcia MR#: [id number] : 1945 Acct:[id number] Age/Sex: 77 / M Adm Date: 3 Loc: Room: [address] [place] [address] Type: ADM IN Attending Dr: Suraj Razo MD Copies to: ~ Date of Service: 05/18/2023 Subjective Subjective Narrative: Assessment And Plan 77M with PMH of HTN, HLD, Myasthenia Gravis (Dx 2017), CKD, PE(On Eliquis) who was admitted to [facility] 05/09 for generalized weakness. He was intubated [...] 08:59 10 mg DAILY DORI Administration Pyridostigmine Drybranch 60 mg 05/18/23 14:00 Pyridostigmine Drybranch 60 Mg Tablet PO 05/17/24 13:59 QID DORI A&P - Hospitalist Assessment/Plan (1) Acute exacerbation of myasthenia gravis: (2) Acute respiratory failure with hypoxia: (3) CKD (chronic kidney disease) stage 3, GFR 30-59 ml/min: Plan . Documented By: Suraj Razo MD 05/18/23 1253 Signed By: <Electronically signed by Suraj Razo MD> 05/18/23 1258 [facility] Work Phone: [phone]) 295-821509-27-2023 Progress note Author Jamel Packer [facility] May 17, 2023 2:05pm Note Date/Time May 17, 2023 2:05pm [place] [address] Neurology Progress Note Signed Patient: Taurus Garcia MR#: [id number] : 1945 Acct:[id number] Age/Sex: 77 / M Adm Date: 3 Loc: Room: [address] [place] [address] Type: ADM IN Attending Dr: Suraj Razo [...] Therapy Recommendations: OT Recommendations OT Recommended Discharge Long Term Facility,[facility] Location OT Recommended Services at Physical Therapy,Occupational Therapy,Speech Discharge Therapy,13/03 Supervision PT Recommendations PT Recommended Discharge Long Term Facility,[facility] Location PT Recommended Services at Physical Therapy,Occupational Therapy Discharge ST Recommendations Level of Supervision 1:1 Feeding Supervision Liquid Consistency Rolla-Thick Liquids Recommendation Solid Consistency Pureed Solids Recommendations Meat Consistency Pureed Meats Recommendations Medication Administration Crush Pills,Give Pills in Applesauce Dysphagia Swallow Precautions/ Sitting Upright (90 deg),Small Bites/Sips, Strategies Liquids via Spoon,Pacing/Slow-Rate ST Recommended Services at 24/ Supervision Discharge Assessment/Plan (1) Myasthenic crisis: Assessment/Problem [...] signed by Jamel Packer DO> 05/17/23 1405 [facility] Work Phone: [phone]) [phone] Progress note Author Stanley Burt [facility] May 17, 2023 12:50pm Note Date/Time May 17, 2023 12:50pm [facility] [address] [place] [address] Pulmonology Progress Note Signed Patient: Taurus Garcia MR#: [id number] : 1945 Acct:[id number] Age/Sex: 77 / M Adm Date: 3 Loc: Room: [address] [place] [address] Type: ADM IN Attending Dr: Suraj Razo [...] patient is in the ICU. Documented By: Stnaley Burt MD 3 [id number] Signed By: <Electronically signed by MD Stanley Burt> 05/17/23 [facility] Work Phone: [phone]) [phone] Progress note Author Suraj Razo [facility] May 17, 2023 11:57am Note Date/Time May 17, 2023 11:48am [facility] [address] [place] [address] Hospitalist Progress Note Signed Patient: Taurus Garcia MR#: [id number] : 1945 Acct:[id number] Age/Sex: 77 / M Adm Date: 3 Loc: Room: [address] [place] [address] Type: ADM IN Attending Dr: Suraj Razo MD Copies to: ~ Date of Service: 05/17/2023 Subjective Subjective Narrative: Assessment And Plan 77M with PMH of HTN, HLD, Myasthenia Gravis (Dx 2016), CKD, PE(On Eliquis) who was admitted to [facility] 05/09 for generalized weakness. He was intubated [...] 08:59 10 mg DAILY DORI Administration Pyridostigmine Drybranch 60 mg 05/15/23 22:00 05/17/23 08:52 Pyridostigmine Drybranch 60 Mg Tablet NG-TUBE 05/14/24 21:59 60 mg TID DORI Administration A&P - Hospitalist Assessment/Plan (1) Acute exacerbation of myasthenia gravis: (2) Acute respiratory failure with hypoxia: (3) CKD (chronic kidney disease) stage 3, GFR 30-59 ml/min: Plan . Documented By: Suraj Razo MD 05/17/23 1146 Signed By: <Electronically signed by Suraj Razo MD> 05/17/23 1157 [facility] Work Phone: [phone]) [phone] Progress note Author Silvestre Grover [facility] May 17, 2023 10:48am Note Date/Time May 17, 2023 10:48am [facility] [address] [place] [address] Physiatry(Rehab) Progress Note Signed Patient: Taurus Garcia MR#: [id number] : 1945 Acct:[id number] Age/Sex: 77 / M Adm Date: 3 Loc: 4C Room: 0L6697-4 Type: ADM IN Attending Dr: Suraj Razo [...] to feel generally weak, he presented to [facility] and was subsequently intubated and transferred to [...] MPV Neut % (Auto) Lymph % (Auto) [place] % (Auto) Eos % (Auto) Baso % (Auto) Nucleat RBC Rel Count Neut # (Auto) Lymph # (Auto) [place] # (Auto) Eos # (Auto) Baso # [...] Color Urine Appearance Urine pH Ur Specific [place] Urine Protein Urine Glucose (UA) Urine Ketones Urine Occult Blood Urine Nitrite Urine Bilirubin Urine Urobilinogen Ur Leukocyte Esterase Urine RBC Urine WBC Ur Squamous Epith Cells Calcium Oxalate Crystal Urine Bacteria Hyaline Casts Urine Yeast 05/16/23 05/16/23 05/16/23 10:32 13:20 16:37 Corrected WBC Uncorrected WBC Count RBC Hgb Hct MCV MCH MCHC RDW Plt Count MPV Neut % (Auto) Lymph % (Auto) [place] % (Auto) Eos % (Auto) Baso % (Auto) Nucleat RBC Rel Count Neut # (Auto) Lymph # (Auto) [place] # (Auto) Eos # (Auto) Baso # (Auto) PHA Creatinine Clear Sodium Potassium Chloride Carbon Dioxide Anion Gap BUN Creatinine Est GFR (CKD-EPI) Glucose POC Glucose 165 POC Glucose Comment Glu2: cleaned meter Calcium Magnesium Total Creatine Kinase 175 Troponin I High Sens TSH 3rd Generation Urine Color Yellow Urine Appearance Clear Urine pH 5.5 Ur Specific [place] 1.026 Urine Protein 30 H Urine Glucose [...] % (Auto) 72.4 Lymph % (Auto) 12.6 [place] % (Auto) 7.6 Eos % (Auto) 7.1 Baso % (Auto) 0.3 Nucleat RBC Rel Count 0.5 Neut # (Auto) 3.2 Lymph # (Auto) 0.6 L [place] # (Auto) 0.3 Eos # (Auto) 0.3 Baso # (Auto) 0.0 PHA Creatinine Clear Sodium Potassium Chloride Carbon Dioxide Anion Gap BUN Creatinine Est GFR (CKD-EPI) Glucose POC Glucose 146 107 POC Glucose Comment Glu2: cleaned meter Calcium Magnesium Total Creatine Kinase Troponin I High Sens TSH 3rd Generation Urine Color Urine Appearance Urine pH Ur Specific [place] Urine Protein Urine Glucose (UA) Urine Ketones Urine Occult Blood Urine Nitrite Urine Bilirubin Urine Urobilinogen Ur Leukocyte Esterase Urine RBC Urine WBC Ur Squamous Epith Cells Calcium Oxalate Crystal Urine Bacteria Hyaline Casts Urine Yeast 05/17/23 04:19 Corrected WBC Uncorrected WBC Count RBC Hgb Hct MCV MCH MCHC RDW Plt Count MPV Neut % (Auto) Lymph % (Auto) [place] % (Auto) Eos % (Auto) Baso % (Auto) Nucleat RBC Rel Count Neut # (Auto) Lymph # (Auto) [place] # (Auto) Eos # (Auto) Baso # [...] Color Urine Appearance Urine pH Ur Specific [place] Urine Protein Urine Glucose (UA) Urine Ketones [...] 08:59 10 mg DAILY DORI Administration Pyridostigmine Drybranch 60 mg 05/15/23 22:00 05/17/23 08:52 Pyridostigmine Drybranch 60 Mg Tablet NG-TUBE 05/14/24 21:59 60 [...] for myasthenic crisis, intubated on admission to [facility], just extubated 05/15, being evaluated for possible IRF placement. -Discussed with pulmonology DOG POUND ATTENDANT. -At this time remains not medically ready for transition to IRF and cannot tolerate 3 hours of therapy daily. Dependent for all mobility. Limited tolerance. -Hopefully can progress over next several days and be able to tolerate IRF level therapy when medically stable for discharge, family prefers [facility] as backup plan if LTACH not required. -Reviewed Neurology note, does not appear would require transfer to tertiary center at this time. -Will follow daily for updated progress. Plan: I completed a substantive portion of this encounter, the medical decision making portion of this note in its entirety, including Allied health note review, nursing note review, health management consultant note review, discussion with nursing and case management, and more than 50% of my time was spent on counseling and coordination of care, time spent 25 minutes Patient was personally seen by me, Dr. Grover, on the day of encounter, reviewed the history and the relevant portions of the chart, including current orders, allied health and health management consultant notes, labs/imaging and performed garcia elements of exam and I formulated the plan of care and facilitated the medical decision making. Documented By: Silvestre Grover MD 05/17/23 1044 Signed By: <Electronically signed by Silvestre Grover MD> 05/17/23 1048 [facility] Work Phone: 1(106) 870-683509-26-2023 Consult note Author Silvestre Grover [facility] May 16, 2023 3:19pm Note Date/Time May 16, 2023 2:46pm [facility] [address] [place] [address] Physiatry (Rehab) Consult Note Signed Patient: Taurus Garcia MR#: [id number] : 1945 Acct:[id number] Age/Sex: 77 / M Adm Date: 3 Loc: Room: [address] [place] [address] Type: ADM IN Attending Dr: Suraj Razo [...] to feel generally weak, he presented to [facility] and was subsequently intubated and transferred to [...] of motion. Eyes closed most of session. DRAPERY CUTTER MACHINE notes reviewed, cleared for modified diet. Review of Systems Review of Systems All other systems reviewed & are negative unless noted below or in HPI [facility] Medical History Acute exacerbation of myasthenia gravis [...] mg PO DAILY 12/27/17 [History Confirmed 05/10/23] tutzznlg-xlp-ognhz acid 0.4 mg-lycopene 300 mcg-lutein 250 mcg [...] MPV Neut % (Auto) Lymph % (Auto) [place] % (Auto) Eos % (Auto) Baso % (Auto) Nucleat RBC Rel Count Neut # (Auto) Lymph # (Auto) [place] # (Auto) Eos # (Auto) Baso # (Auto) Potassium 4.0 POC Glucose 152 146 Magnesium 1.9 Urine Color Urine Appearance Urine pH Ur Specific [place] Urine Protein Urine Glucose (UA) Urine Ketones [...] % (Auto) 82.7 Lymph % (Auto) 7.8 [place] % (Auto) 5.0 Eos % (Auto) 4.2 Baso % (Auto) 0.3 Nucleat RBC Rel Count 0.5 Neut # (Auto) 4.4 Lymph # (Auto) 0.4 L [place] # (Auto) 0.3 Eos # (Auto) 0.2 Baso # (Auto) 0.0 Potassium POC Glucose 100 Magnesium Urine Color Yellow Urine Appearance Clear Urine pH 5.5 Ur Specific [place] 1.026 Urine Protein 30 H Urine Glucose [...] for myasthenic crisis, intubated on admission to [facility], just extubated 05/15, being evaluated for possible [...] when medically stable for discharge, family prefers [facility] as backup plan if LTACH not required. -Reviewed Neurology note, does not appear would require transfer to tertiary center at this time. -Will follow daily for updated progress. Plan: I completed a substantive portion of this encounter, the medical decision makingportion of this note in its entirety, including Allied health note review, nursing note review, health management consultant note review, discussion with nursing and case management, and more than 50% of my time was spent on counseling and coordination of care, time spent 65 minutes Patient was personally seen by me, Dr. Grover, on the day of encounter, reviewed the history and the relevant portions of the chart, including current orders, allied health and health management consultant notes, labs/imaging and performed garcia elements of exam and I formulated the plan of care and facilitated the medical decision making. Documented By: Silvestre Grover MD 05/16/23 1208 Signed By: <Electronically signed by Silvestre Grover MD> 05/16/23 2961 [facility] Work Phone: [phone]) 827-272409-26-2023 Progress note Author Jamel Packer [facility] May 16, 2023 2:29pm Note Date/Time May 16, 2023 2:29pm [facility] [address] [place] [address] Neurology Progress Note Signed Patient: Taurus Garcia MR#: [id number] : 1945 Acct:[id number] Age/Sex: 77 / M Adm Date: 3 Loc: Room: [address] [place] [address] Type: ADM IN Attending Dr: Suraj Razo [...] of Supervision 1:1 Feeding Supervision Liquid Consistency Rolla-Thick Liquids Recommendation Solid Consistency Pureed Solids Recommendations [...] Acute Documented By: Jamel Packer DO 05/16/23 1419 Signed By: <Electronically signed by Jamel Packer DO> 05/16/23 1429 [facility] Work Phone: 1(715) 844-915309-26-2023 Progress note Author Suraj Razo [facility] May 16, 2023 1:53pm Note Date/Time May 16, 2023 1:53pm [facility] [address] [place] [address] Hospitalist Progress Note Signed Patient: Taurus Garcia MR#: [id number] : 1945 Acct:[id number] Age/Sex: 77 / M Adm Date: 3 Loc: Room: [address] [place] [address] Type: ADM IN Attending Dr: Suraj Razo MD Copies to: ~ Date of Service: 05/16/2023 Subjective Subjective Narrative: Assessment And Plan 77M with PMH of HTN, HLD, Myasthenia Gravis (Dx 2016), CKD, PE(On Eliquis) who was admitted to [facility] 05/09 for generalized weakness. He was intubated [...] 08:59 60 mg DAILY DORI Administration Pyridostigmine Drybranch 60 mg 05/15/23 22:00 05/16/23 09:25 Pyridostigmine Drybranch 60 Mg Tablet NG-TUBE 05/14/24 21:59 60 [...] <Electronically signed by Suraj Razo MD> 05/16/23 1350 [facility] Work Phone: 1([phone]) 252-264409-26-2023 Progress note Author Stanley Burt [facility] May 16, 2023 11:27am Note Date/Time May 16, 2023 11:27am [facility] [address] [place] [address] Pulmonology Progress Note Signed Patient: Taurus Garcia MR#: [id number] : 1945 Acct:[id number] Age/Sex: 77 / M Adm Date: 3 Loc: Room: [address] [place] [address] Type: ADM IN Attending Dr: Suraj Razo MD Copies to: ~ Date of Service: 05/16/2023 Subjective Subjective Narrative: Patient was extubated yesterday at 1600. Patient had runs of A-fib RVR last night and was started on amiodarone. Patient also had a temperature of 101.7 and was placed back on the Arctic sun to cool. Arctic sun temperature currentlyreads 102.3. Patient is awake [...] / 1832 250 / 250 Output Total 5 / 4175 2100 / 4175 450 / [...] secretions. Documented By: Stanley Burt MD 3 8317 Signed By: <Electronically signed by MD Stanley Burt> 05/16/23 5561 [facility] Work Phone: 1(271) 758-803209-25-2023 Progress note Author Jamel Packer [facility] May 15, 2023 1:56pm Note Date/Time May 15, 2023 1:54pm [facility] [address] [place] [address] Neurology Progress Note Signed Patient: Taurus Garcia MR#: [id number] : 1945 Acct:[id number] Age/Sex: 77 / M Adm Date: 3 Loc: Room: [address] [place] [address] Type: ADM IN Attending Dr: Suraj Razo [...] signed by Jamel Packer DO> 05/15/23 1356 [facility] Work Phone: 1([phone]) [phone] Progress note Author Suraj Razo [facility] May 15, 2023 12:28pm Note Date/Time May 15, 2023 12:25pm [facility] [address] [place] [address] Hospitalist Progress Note Signed Patient: Taurus Garcia MR#: [id number] : 1945 Acct:[id number] Age/Sex: 77 / M Adm Date: 3 Loc: Room: [address] [place] [address] Type: ADM IN Attending Dr: Suraj Razo MD Copies to: ~ Date of Service: 05/15/2023 Subjective Subjective Narrative: Assessment And Plan 77M with PMH of HTN, HLD, Myasthenia Gravis (Dx 2016), CKD, PE(On Eliquis) who was admitted to [facility] 05/09 for generalized weakness. He was intubated [...] 100 mls @ 44.31 mls/hr 05/11/23 00:45 09/25/23 09:59 Diprivan IV 05/10/24 00:44 40 mcg/kg/min [...] 05/10/24 00:22 PROTOCOL PRN Bolus Documentation Pyridostigmine Drybranch 30 mg 05/14/23 14:00 05/15/23 08:57 Pyridostigmine Drybranch 60 Mg Tablet NG-TUBE 05/13/24 13:59 30 [...] By: <Electronically signed by Suraj Razo MD> 05/15/238 [facility] Work Phone: 1(349) 888-899709-25-2023 Progress note Author Stanley Burt [facility] May 15, 2023 11:32am Note Date/Time May 15, 2023 11:25am [facility] [address] [place] [address] Pulmonology Progress Note Signed Patient: Taurus Garcia MR#: [id number] : 1945 Acct:[id number] Age/Sex: 77 / M Adm Date: 3 Loc: Room: [address] [place] [address] Type: ADM IN Attending Dr: Suraj Razo [...] previous pulmonary embolism who was transferred from [place] with progressive decompensation likely related to myasthenia [...] overload. Documented By: Stanley Burt MD 3 13 Signed By: <Electronically signed by MD Stanley Burt> 05/15/23 1132 [facility] Work Phone: [phone]) 522-163909-24-2023 Progress note Author Eliezer Newell [facility] May 14, 2023 6:05pm Note Date/Time May 14, 2023 5:59pm [facility] [address] [place] [address] Hospitalist Progress Note Signed Patient: Taurus Garcia MR#: [id number] : 1945 Acct:[id number] Age/Sex: 77 / M Adm Date: 3 Loc: Room: [address] [place] [address] Type: ADM IN Attending Dr: Eliezer Newell MD Copies to: ~ Date of Service: 05/14/2023 Subjective Subjective Narrative: Assessment And Plan 77M with PMH of HTN, HLD, Myasthenia Gravis (Dx 2016), CKD, PE(On Eliquis) who was admitted to [facility] 05/09 for generalized weakness. He was intubated there then transferred for the evaluation and treatment of suspected acute myasthenia gravis exacerbation. Acute Respiratory Failure due to Myasthenia gravis exacerbation remain on MV with low O2 demand The patient required intubation at [facility] CXR 05/11 shows Continued cardiomegaly and mild [...] Lactated Ringers IV 05/10/24 01:59 Not Given .[id number] DORI Immune Globulin 30 gm in 300 [...] 05/10/24 00:22 PROTOCOL PRN Bolus Documentation Pyridostigmine Drybranch 30 mg 05/14/23 14:00 05/14/23 13:41 Pyridostigmine Drybranch 60 Mg Tablet NG-TUBE 05/13/24 13:59 30 [...] . Documented By: Eliezer Newell MD 05/14/23 7727 Signed By: <Electronically signed by Eliezer Newell MD> 05/14/23 1805 [facility] Work Phone: 1([phone]) 534-436809-24-2023 Progress note Author Jamel Friedmanshania [facility] May 14, 2023 12:14pm Note Date/Time May 14, 2023 11:10am [facility] [address] [place] [address] Neurology Progress Note Signed Patient: Taurus Garcia MR#: [id number] : 1945 Acct:[id number] Age/Sex: 77 / M Adm Date: 3 Loc: Room: [address] [place] [address] Type: ADM IN Attending Dr: Eliezer Newell [...] <Electronically signed by Jamel Packer DO> 05/14/23 4775 [facility] Work Phone: 1([phone]) 235-146709-24-2023 Progress note Author Stanley Burt [facility] May 14, 2023 12:02pm Note Date/Time May 14, 2023 9:12am [facility] [address] [place] [address] Pulmonology Progress Note Signed Patient: Taurus Garcia MR#: [id number] : 1945 Acct:[id number] Age/Sex: 77 / M Adm Date: 3 Loc: Room: [address] [place] [address] Type: ADM IN Attending Dr: Eliezer Newell [...] Content 8.4 ABG Base Excess 7.1 H 10/500/30/5 Assessment/Plan Assessment/Plan (1) Acute respiratory failure with hypoxia: (2) Myasthenic crisis: (3) CKD (chronic kidney disease) stage 3, GFR 30-59 ml/min: (4) Obstructive sleep apnea: Plan Hospital day #4, ventilator day #4 for patient with history of myasthenia gravisas well as prior pulmonary embolism who was transferred from outside hospital ([place]) with progressive decompensation likely related to myasthenia gravis exacerbation. Patient's potassium is stable with patient getting day #4 of intravenous immunoglobulin today. Continue supportive care with patient alreadyon apixaban with nutritional support and stress ulcer prophylaxis. Note that cultures remain negative. Documented By: Stanley Burt MD 3 0910 Signed By: <Electronically signed by MD Stanley Burt> 05/14/23 1202 [facility] Work Phone: [phone]) 666-333409-23-2023 Progress note Author Eliezer Newell [facility] May 13, 2023 6:40pm Note Date/Time May 13, 2023 5:41pm [facility] [address] [place] [address] Hospitalist Progress Note Signed Patient: Taurus Garcia MR#: [id number] : 1945 Acct:[id number] Age/Sex: 77 / M Adm Date: 3 Loc: Room: [address] [place] [address] Type: ADM IN Attending Dr: Eliezer Newell MD Copies to: ~ Date of Service: 05/13/2023 Subjective Subjective Narrative: Assessment And Plan 77M with PMH of HTN, HLD, Myasthenia Gravis (Dx 2016), CKD, PE(On Eliquis) who was admitted to [facility] 05/09 for generalized weakness. He was intubated there then transferred for the evaluation and treatment of suspected acute myasthenia gravis exacerbation. Acute Respiratory Failure due to Myasthenia gravis exacerbation remain on MV with low O2 demand The patient required intubation at [facility] CXR 05/11 shows Continued cardiomegaly and mild [...] Lactated Ringers IV 05/10/24 01:59 75 mls/hr .[id number] DORI Administration Immune Globulin 30 gm in 300 mls @ 0 mls/hr 05/11/23 09:00 05/13/23 11:24 Gammagard 10% 30 Gm/300 Ml IV 05/16/23 08:59 0 mls/hr DAILY DOIR Infusion Protocol Per Protocol Immune Globulin 30 [...] . Documented By: Eliezer Newell MD 05/13/23 8137 Signed By: <Electronically signed by Eliezer Newell MD> 05/13/23 1840 [facility] Work Phone: 1([phone]) 361-191509-23-2023 Progress note Author Stanley Burt [facility] May 13, 2023 1:31pm Note Date/Time May 13, 2023 10:36am [facility] [address] [place] [address] Pulmonology Progress Note Signed Patient: Taurus Garcia MR#: [id number] : 1945 Acct:[id number] Age/Sex: 77 / M Adm Date: 3 Loc: Room: [address] [place] [address] Type: ADM IN Attending Dr: Eliezer Newell [...] Ventilation 30 05/13/23 10:00 05/13/23 10:00 05/13/23 10:05/13/23 10:05/13/23 10:05/13/23 10:05/13/23 10:00 Const Nutritional [...] embolism who was transferred from outside hospital ([place]) with progressive decompensation likely related to myasthenia [...] signed by MD Stanley Burt> 05/13/23 1331 [facility] Work Phone: [phone] 304-531809-23-2023 Progress note Author Jamel Packer [facility] May 13, 2023 1:04pm Note Date/Time May 13, 2023 1:04pm [facility] [address] [place] [address] Neurology Progress Note Signed Patient: Taurus Garcia MR#: [id number] : 1945 Acct:[id number] Age/Sex: 77 / M Adm Date: 3 Loc: Room: [address] [place] [address] Type: ADM IN Attending Dr: Eliezer Newell [...] [facility] after completing his IVIG course. Code(s): G70.01 - Myasthenia gravis with (acute) exacerbation Status: Acute Documented By: Jamel Packer DO 05/13/23 1301 Signed By: <Electronically signed by Jamel Packer DO> 05/13/23 1304 [facility] Work Phone: 1(909) 368-499109-22-2023 Progress note Author Eliezer Newell [facility] May 12, 2023 6:48pm Note Date/Time May 12, 2023 3:45pm [facility] [address] [place] [address] Hospitalist Progress Note Signed Patient: Taurus Garcia MR#: [id number] : 1945 Acct:[id number] Age/Sex: 77 / M Adm Date: 3 Loc: Room: [address] [place] [address] Type: ADM IN Attending Dr: Eliezer Newell MD Copies to: ~ Date of Service: 05/12/2023 Subjective Subjective Narrative: Assessment And Plan 77M with PMH of HTN, HLD, Myasthenia Gravis (Dx 2017), CKD, PE(On Eliquis) who was admitted to [facility] 05/09 for generalized weakness. He was intubated there then transferred for the evaluation and treatment of suspected acute myasthenia gravis exacerbation. Acute Respiratory Failure remain on MV with low O2 demand The patient required intubation at [facility] CXR 05/11 shows Continued cardiomegaly and mild [...] Lactated Ringers IV 05/10/24 01:59 75 mls/hr .[id number] DORI Administration Immune Globulin 30 gm in [...] . Documented By: Eliezer Newell MD 05/12/23 1544 Signed By: <Electronically signed by Eliezer Newell MD> 05/12/23 3478 [facility] Work Phone: 1([phone]) 922-576209-22-2023 Progress note Author Jamel Packer [facility] May 12, 2023 2:06pm Note Date/Time May 12, 2023 2:06pm [facility] [address] [place] [address] Neurology Progress Note Signed Patient: Taurus Garcia MR#: [id number] : 1945 Acct:[id number] Age/Sex: 77 / M Adm Date: 3 Loc: Room: [address] [place] [address] Type: ADM IN Attending Dr: Eliezer Newell [...] signed by Jamel Packer DO> 05/12/23 1406 [facility] Work Phone: 1([phone]) [phone] Progress note Author Stanley Burt [facility] May 12, 2023 11:21am Note Date/Time May 12, 2023 8:32am [facility] [address] [place] [address] Pulmonology Progress Note Signed Patient: Taurus Garcia MR#: [id number] : 1945 Acct:[id number] Age/Sex: 77 / M Adm Date: 3 Loc: Room: [address] [place] [address] Type: ADM IN Attending Dr: Eliezer Newell [...] embolism who was transferred from outside hospital ([place]) with progressive decompensation likely related to myasthenia [...] <Electronically signed by MD Stanley Burt> 05/12/[address] [place] [address] Ctr Work Phone: 1([phone]) 910-820809-22-2023 Progress note Author Eliezer Newell [facility] May 12, 2023 12:47am Note Date/Time May 11, 2023 4:12pm [facility] [address] [place] [address] Hospitalist Progress Note Signed Patient: Taurus Garcia MR#: [id number] : 1945 Acct:[id number] Age/Sex: 77 / M Adm Date: 3 Loc: Room: [address] [place] [address] Type: ADM IN Attending Dr: Eliezer Newell MD Copies to: ~ Date of Service: 05/11/2023 Subjective Subjective Narrative: Assessment And Plan 77M with PMH of HTN, HLD, Myasthenia Gravis(Dx 2017), CKD, PE (On Eliquis) who was admitted to [facility] 05/09 for generalized weakness. He was intubated there then transferred for the evaluation and treatment of suspected acute myasthenia gravis exacerbation. Acute respiratory failure The patient required intubation at [facility] CXR 05/11 shows Continued cardiomegaly and mild [...] Lactated Ringers IV 05/10/24 01:59 75 mls/hr .[id number] DORI Administration Immune Globulin 30 gm in [...] DORI Documented By: Eliezer Newell MD 05/11/23 1604 Signed By: <Electronically signed by Eliezer Newell MD> 05/12/23 0047 [facility] Work Phone: 1([phone]) 912-109009-21-2023 Consult note Author Jamel Packer [facility] May 11, 2023 1:53pm Note Date/Time May 11, 2023 12:06pm [facility] [address] [place] [address] Neurology Consult Note Signed Patient: Taurus Garcia MR#: [id number] : 1945 Acct:[id number] Age/Sex: 77 / M Adm Date: 3 Loc: Room: [address] [place] [address] Type: ADM IN Attending Dr: Eliezer Newell MD Copies to: DO Komal Bajwa II, MD Marwan Wassouf, MD~ HPI Consult Date: 05/11/23 Fluid Dynamicist: Jamel Packer DO [facility] Medical History Acute exacerbation of myasthenia gravis [...] mg PO DAILY 12/27/17 [History Confirmed 05/10/23] wexlczqk-vzc-ivblg acid 0.4 mg-lycopene 300 mcg-lutein 250 mcg [...] Aide Moe M.D.05/11/2023 7:15 AM Dictation Location: [place] [address] Chest X-Ray 05/11/23 05:19 IMPRESSION: Continued cardiomegaly and mild parenchymal changes. Impression dictated by: Aide Moe M.D.05/11/2023 7:14 AM Dictation Location: [place] [address] Assessment/Plan (1) Myasthenic crisis: Assessment/Problem Details: CONSULT REASON: Exacerbation of myasthenia gravis, myasthenic crisis HPI: 77-year-old man. History is obtained from his , Gabrielle. History of myasthenia gravis, which was diagnosed back in 2017 when he developed ptosis andshmagdalena thinks that he had positive antibodies but cannot quite remember. He has never had any severe exacerbations but did get 3 days of IVIG once. 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 Transferred from [facility]. Initially presented there on May 09, 2023 [...] <Electronically signed by Jamel Packer DO> 05/11/23 2874 [facility] Work Phone: 1([phone]) 931-217109-21-2023 Consult note Author Lexy Chappell [facility] May 11, 2023 12:44pm Note Date/Time May 11, 2023 12:45pm [facility] [address] [place] [address] Pulmonology Consult Note Signed Patient: Taurus Garcia MR#: [id number] : 1945 Acct:[id number] Age/Sex: 77 / M Adm Date: 3 Loc: Room: [address] [place] [address] Type: ADM IN Attending Dr: Eliezer Newell [...] history of pulmonary emboli who presented to [facility] with weakness, swallowing difficulties, and shortness of [...] of systems: As mentioned above otherwise unremarkable [facility] Medical History Acute exacerbation of myasthenia gravis [...] mg PO DAILY 12/27/17 [History Confirmed 05/10/23] rqigxijk-slb-omcia acid 0.4 mg-lycopene 300 mcg-lutein 250 mcg [...] signed by Lexy Chappell MD> 05/11/23 1244 [facility] Work Phone: 1(757) 150-776309-21-2023 History and physical note Author Jarret Garza [facility] May 11, 2023 1:33am Note Date/Time May 11, 2023 1:07am [facility] [address] [place] [address] Hospitalist H&P Signed Patient: Taurus Garcia MR#: [id number] : 1945 Acct:[id number] Age/Sex: 77 / M Adm Date: 3 Loc: Room: [address] [place] [address] Type: ADM IN Attending Dr: Jarret Garza MD Copies to: MD Jarret Gonsalves II, MD~ HPI DATE OF EXAMINATION: 05/11/23 CHIEF COMPLAINT: Acute exacerbation of myasthenia gravis HISTORY OF PRESENT ILLNESS: Patient is a 77-year-old male with medical history of bilateral PE on Eliquis, known history of myasthenia gravis, hypertension was transferred from [facility] to our facility for concern of acute myasthenia gravis exacerbation. Patient presented to [facility] on 05/09/2023 complaining of weakness over3 days [...] his airway secretions, patient was intubated at [facility]. They reached outto our neurology service and [...] mg PO DAILY 12/27/17 [History Confirmed 05/10/23] sgtizaep-olu-xslxr acid 0.4 mg-lycopene 300 mcg-lutein 250 mcg [...] no leukocytosis from most recent labs at [place]. Repeat labs in am -Will start antibiotics [...] 05/11/2308 26 Signed By: <Electronically signed by Jarert Garza MD> 05/11/23 0133 [facility] Work Phone: 1(400) 205-914002-28-2023 History of Present illness Narrative* Addison Harvey MD - 10/18/2022 12:48 PM EST Physician Progress Note PATIENT: TAURUS GARCIA [facility] #: [id number] : 1945 ADMIT DATE: 10/15/2022 6:59 PM [...] me for any questions. Danie Maldonado RN, [facility] cell- [phone] office hours - [id number] Options provided: -- sepsis due to UTI [...] 3.2* CL 104 102 102 CO2 23 22 23 BUN 16 19 17 CREATININE [...] Morales MD 7:38 AM 10/18/2022 * Silke aHney RN - 10/18/2022 2:14 AM EST Pt tele needing new patches multiple times this shift. When this justowriter operator went to pt room due to telemonitor [...] there is no need to wear it. mail caller DOG POUND ATTENDANT for hospitalist group notified. * Colten Rosen RCP - 10/17/2022 9:43 PM EST Pt has own CPAP machine from home Unit was checked. 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 [facility] Office: [phone] Dharmesh Barbosa DO, Taurus Hoover DO, Jae Vela DO, Aaron Dobson DO, Tu Diallo MD, Marisabel Roldan MD, Tiara Chambers MD, Lena Guerra MD, Honorio Vuong MD, Addison Harvey MD, Caleb EspinozaDO, Enrico Myers MD, Shae Sanches DO, Eliel Rizzo MD, Maulik Regan MD, Danie Barbosa DO, Gracia Altamirano MD, Uziel Nesbitt MD, Real De La Cruz DO, Haven Uribe MD, Nicolle Barros MD, Risa Chawla MD, Diann Vang MD, Stanley Valdes DO, Viri Sesay MD, Israel Lara MD, Marcelle Decker, COLLEGE COUNSELOR, Adore Fraga, COLLEGE COUNSELOR, Jolly Cardona, COLLEGE COUNSELOR, Komal Bauer, COLLEGE COUNSELOR, Malaika Ortiz DNP, Cynthia Amado, COLLEGE COUNSELOR, Dee Lazo, COLLEGE COUNSELOR, Joana Ponce, COLLEGE COUNSELOR, Mookie Castro, COLLEGE COUNSELOR, Teresita Robb, COLLEGE COUNSELOR, TEMITOPE Corona-C, Eliza Majano, WATER MANGLE TENDER, Susanne Mock, COLLEGE COUNSELOR, Jaja Stanton, COLLEGE COUNSELOR [facility] IN-PATIENT SERVICE [facility] Progress Note 10/17/2022 11:11 AM Name: Taurus Garcia Acct: [id number] Room: IP Day: 2 Admit Date: 10/15/2022 [...] post TURBTx2, BCG therapy who presented to [facility] 10/13 with penile bleeding/suspected Harrell trauma with BCG installation status post Harrell placement, and discharged home. Patient returned to [facility] earlier today with fevers with suspected sepsis with Harrell associated UTI and recommended for transfer to [facility] for urologic evaluation Status post second [...] No results for input(s): PROT, LABALBU, LABA1C, F9XCXNK, V5NOJAW, FT4, TSH, AST, ALT, LDH, GGT, ALKPHOS, LABGGT, BILITOT, BILIDIR, AMMONIA, AMYLASE, LIPASE, LACTATE, CHOL, HDL, LDLCHOLESTEROL, CHOLHDLRATIO, TRIG, VLDL, HNH74MX, PHENYTOIN, PHENYF, URICACID, POCGLU in the last 72 hours. ABG:No results found for: POCPH, PHART, PH, POCPCO2, DUH8DJM, PCO2, POCPO2, PO2ART, PO2, POCHCO3, QIT4FNF, HCO3, NBEA, PBEA, BEART, BE, THGBART, THB, NWM8ZPY, OVCE3RYI, C3VXAZHH, O2SAT, FIO2 No results found for: SPECIAL [...] Fever, unspecified 10/15/2022 Yes Bladder cancer ([facility]) 10/16/2022 Yes Gross hematuria 10/16/2022 Yes Malaise and fatigue 10/16/2022 Yes Acute weakness 10/16/2022 Yes Myasthenia gravis ([facility]) 10/16/2022 Yes JAMISON (obstructive sleep apnea) 10/16/2022 Yes Current chronic use of systemic steroids 10/16/2022 Yes Type 2 diabetes mellitus with diabetic neuropathy, without long-term current use of insulin ([facility]) 10/16/2022 Yes Morbid obesity ([facility]) 10/16/2022 Yes Hyponatremia 10/16/2022 Yes Hypokalemia 10/16/2022 Yes Acute retention of urine 10/16/2022 Yes Hypomagnesemia 10/16/2022 Yes Hypocalcemia 10/16/2022 Yes CRP elevated 10/17/2022 Yes Elevated procalcitonin 10/17/2022 Yes Bandemia 10/17/2022 Yes SIRS (systemic inflammatory response syndrome) ([facility]) 10/17/2022 Yes Plan: Acute fever, [...] were not included. [facility] - Infectious diseases evaluation admission date [...] to the BCG instillation Infection Control Recommendations Bates Precautions Contact Isolation Antimicrobial Stewardship Recommendations Simplification of therapy Targeted therapy History of Present Illness: Initial history: Taurus Garcia is a 77 y.o.-year-old male transferred from [facility] because of sepsis. He has a history of BCG due to high-grade known muscle invasive bladder cancer, post TURBT x2 his last BCG was 10/13/2022 They noticed some bleeding from the urethra after the BCG installation and hence came to [facility], they thought it might be from the prior Harrell, so another Harrell was placed and was discharged home. That he came back with fatigue malaise fever chills. There was a concern for urosepsis and urine analysis was abnormal. He was sent to [facility] 10/17/2022 Patient Vitals for the past 8 hrs: Weight 10/17/22 0600 (!) 318 lb 7 oz (144.4 kg) 10/17 Afebrile, vitals stable UA many WBC, nitrate and small leukocyte esterase Complaining of diarrhea overnight, liquid BM every 45 min, no foul smell Summary of relevant labs: Labs: Platelet, Ibevhlajdmts810 WBC6.3 CRP86.3 High Procalcitonin0.20 High Micro: U [...] Keiko Jc Office: Perfect serve / office [phone] I have discussed the care of the patient, including pertinent history and exam findings, with the resident. I have seen and examined the patient and the garcia elements of all parts of the encounter have been performed by me. I agree with the assessment, plan and orders as documented by the resident. Lian Aouad, Infectious Diseases * Jovan Morales MD - [...] from the original note were not included. [facility] Office: [phone] Dharmesh Barbosa DO, Taurus Hoover DO, Jae [...] Bauer CNP, Malaika Ortiz, RONAL, Cynthia Amado, GM, Dee Lazo, COLLEGE COUNSELOR, Joana Ponce, COLLEGE COUNSELOR, Mookie Castro, COLLEGE COUNSELOR, Teresita Robb, COLLEGE COUNSELOR, TEMITOPE Corona-Daniella, Eliza Majano, WATER MANGLE TENDER, Susanne Mock, GM, Jaja Stanton CNP [facility] IN-PATIENT SERVICE [facility] Progress Note 10/16/2022 11:27 AM Name: Taurus Garcia Acct: [id number] Room: 0322/0322-02 Day: 1 Admit Date: 10/15/2022 [...] post TURBTx2, BCG therapy who presented to [facility] 10/13 with penile bleeding/suspected Harrell trauma with BCG installation status post Harrell placement, and discharged home. Patient returned to [facility] earlier today with fevers with suspected sepsis with Harrell associated UTI and recommended for transfer to [facility] for urologic evaluation Patient describes abrupt [...] Harrell with decompression. Patient did return to [facility] ED earlier today with persistent malaise [...] No results for input(s): PROT, LABALBU, LABA1C, H4NEKTZ, V2QMWXT, FT4, TSH, AST, ALT, LDH, GGT, ALKPHOS, LABGGT, BILITOT, BILIDIR, AMMONIA, AMYLASE, LIPASE, LACTATE, CHOL, HDL, LDLCHOLESTEROL, CHOLHDLRATIO, TRIG, VLDL, IVR71AD, PHENYTOIN, PHENYF, URICACID, POCGLU in the last 72 hours. ABG:No results found for: POCPH, PHART, PH, POCPCO2, BNH9TGO, PCO2, POCPO2, PO2ART, PO2, POCHCO3, GPO1CBU, HCO3, NBEA, PBEA, BEART, BE, THGBART, THB, RQW3MPL, HTSZ3OFB, F2HGUJLF, O2SAT, FIO2 No results found for: SPECIAL [...] of insulin (HCC) 10/16/2022 Yes Morbid obesity ([facility]) 10/16/2022 Yes Hyponatremia 10/16/2022 Yes [...] to 30mg subq BID Nena Porras PharmD [facility] 10/16/2022 11:08 AM documented in this encounterBON [facility]ITAL[facility] [employer] Work Phone: 1(918) 737-664602-28-2023 Hospital course Narrative* Addison Harvey MD - 10/18/2022 12:10 PM EST Images from the original note were not included. [facility] Office: [phone] Dharmesh Barbosa DO, Taurus Hoover DO, Jae [...] Sesay MD, Israel Lara MD, Marcelle Decker, COLLEGE COUNSELOR, Adore Fraga, COLLEGE COUNSELOR, Jolly Cardona, COLLEGE COUNSELOR, Komal Bauer, COLLEGE COUNSELOR, Malaika Ortiz, [facility], Cynthia Amado, COLLEGE COUNSELOR, Dee Lazo, COLLEGE COUNSELOR, Joana Ponce, COLLEGE COUNSELOR, Mookie Castro, COLLEGE COUNSELOR, Teresita Robb, COLLEGE COUNSELOR, Jarrod Ladd PA-C, Eliza Majano, [facility], Susanne Mock, COLLEGE COUNSELOR, Jaja Stanton, COLLEGE COUNSELOR [facility] IN-PATIENT SERVICE [facility] Discharge Summary Patient ID: Taurus Garcia : 1945 ACCOUNT: [id number] Patient's PCP: Komal Nguyen MD Admit Date: [...] Physician Follow Up: Komal Nguyen MD [address] [address] Follow up in 1 week(s) your urologist [...] this patient's care. 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 Discharge instructions Patient Education 03/29/2022 [...] including vitamins, herbs, eye drops, creams, and nwaj-war-bhlsrca medicines. Any problems you or family members [...] provider tells you to take them. Taking qyuo-yhx-cbtiudu medicines, vitamins, herbs, and supplements. Tests You [...] 06/03/2010 Document Revised: 03/08/2019 Document Reviewed: 03/08/2019 [employer]row[employer] Patient Education 2020 [employer]. Follow Up Care 03/03/2022 14:58:42 With:Autumn Molina MD, Yoko Hair URO Address: [facility] [address] , [place] [address]- [phone] When: Unknown Comments:schedule Cysto/TURBT and CT [facility] 07-14-2022 Hospital Discharge instructions Patient Education 03/03/2022 11:28:54 Post Op Patient Instructions - FT (CUSTOM) Follow Up Care 02/09/2022 11:58:15 With:Yoko Rizvi Address: [facility] [address] [place] [address]- [facility] (1) When:2 to 4 weeks Comments:Reviewed pathology report and plan exudative treatment.Call for any problems.Call for followup appointment [facility]07-05-2022 Note [id number]:127Peter [facility] 02-01-2022 Hospital Discharge instructions Patient Education [...] cells. Follow these instructions at home: Take hmbi-wtf-rpeoxsq and prescription medicines only as told by [...] is important. Where to find more information [employer]: www.cancer.org National [employer] (NCI): www.cancer.gov Contact a health care provider [...] 08/09/2004 Document Revised: 07/20/2018 Document Reviewed: 07/11/2017 [employer] Patient Education 2019 eGames. [facility] 05-09-2022 Hospital Discharge instructions Patient [...] Follow these instructions at home: Medicines Take kedv-rpu-thlnoma and prescription medicines only as told by [...] or the blood stops without treatment. Take zoqz-gqi-lmqdqsl and prescription medicines only as told by your health care provider. Drink enough fluid to keep your urine clear or pale yellow. This information is not intended to replace advice given to you by your health care provider. Make sure you discuss any questions you have with your health care provider. Document Released: 08/07/2006 Document Revised: 01/01/2020 Document Reviewed: 09/09/2017 [employer] Patient Education 2020 [employer]. Follow Up Care 12/07/2021 14:21:16 With:Autumn Molina MD, Yoko Hair, URO Address: [facility] [address] , [place] [address]- When: Unknown Comments:schedule follow up after TURBT [facility] 04-19-2022 Hospital Discharge instructions Patient Education 12/07/2021 [...] Follow these instructions at home: Medicines Take ffou-kck-qzsmcij and prescription medicines only as told by [...] or the blood stops without treatment. Take czbe-qpc-ydbdwpt and prescription medicines only as told by your health care provider. Drink enough fluid to keep your urine clear or pale yellow. This information is not intended to replace advice given to you by your health care provider. Make sure you discuss any questions you have with your health care provider. Document Released: 08/07/2006 Document Revised: 01/01/2020 Document Reviewed: 09/09/2017 [employer] Patient Education 2020 [employer]. Follow Up Care 11/05/2021 14:25:01 With:Autumn Molina MD, Yoko Hair, URO Address: [facility] [address] , [place] [address]- [phone] When: Unknown [facility] discharge summary Author Chau Lara [facility] May 21, 2023 12:26pm Note Date/Time May 21, 2023 12 :23pm [facility] [address] [place] [address] Discharge Summary Signed Patient: Taurus Garcia MR#: [id number] : 1945 Acct:[id number] Age/Sex: 77 / M Adm Date: 3 Loc: Room: [address] [place] [address]: Chau Lara MD Copies to: [...] CKD, PE(On Eliquis) who was admitted to [facility] 05/09 for generalized weakness. He was intubated [...] Discharge Plan Discharge Plan [facility] Dis[facility] [facility] Additional Instructions: Inpatient Rehab to manage care: [...] 10:00 am Documented By: Chau Lara MD 05/21/232 Signed By: <Electronically signed by Chau Lara MD> 05/21/23 1226 [facility] Work Phone: Evaluation + Plan note Future Appointments Appointment Date:12/27/2021 01:00:00 PM Scheduled Provider:Yoko Rizvi Jr., MD Location:[facility] Appointment Type:URO Procedure 15 min Diagnostic Tests Pending * UroVysion Fish and Urine Cyto ([facility]) 12/07/21 * UroVysion Fish and Urine Cyto ([facility]) 12/07/21 [facility] evaluation + Plan note Future Appointments Appointment Date:02/01/2022 10:30:00 AM Scheduled Provider:Yoko Rizvi Jr., MD Location:[facility] Appointment Type:URO Office Visit [facility] evaluation + Plan note Future Appointments Appointment Date:02/01/2022 10:30:00 AM Scheduled Provider:Yoko Rizvi Jr., MD Location:[facility] Appointment Type:URO Office Visit Diagnostic Tests Pending * [facility]ments Appointment Date:03/03/2022 11:00:00 AM Scheduled Provider: Location:[facility] Appointment Type:Surgery FT Diagnostic Tests Pending * Urine Culture [facility] Future Appointments Appointment Date:03/29/2022 11:00:00 AM Scheduled Provider:Yoko Rizvi Jr., MD Location:[facility] Appointment Type:URO Office Visit [facility] note* Diagnosis Malignant neoplasm of overlapping sites of bladder (HCC)- Primary Malignant neoplasm of other specified sites of bladder documented in this encounter [facility] note* Diagnosis Screening for genitourinary condition Screening for other and unspecified genitourinary condition documented in this encounter [facility] noteNo assessment information availableSelect [facility] Work Phone: Evaluation note* Diagnosis Fever, unspecified- [...] response syndrome, unspecified documented in this encounter [facility] Work Phone: Evaluation note* Diagnosis Onset Date [...] Enterococcus acute [facility] Work Phone: Evaluation note* Diagnosis Onset Date [...] Oropharyngeal dysphagia acut e Pulmonary emboli acute [facility] Work Phone: Evaluation note* Diagnosis Paroxysmal atrial fibrillation (CMS/HCC) Atrial fibrillation Pulmonary embolism, unspecified chronicity, unspecified pulmonary embolism type, unspecified whether acute cor pulmonale present ([facility]/HCC) Myasthenia gravis ([facility]) Myasthenia gravis without exacerbation High risk medication use Essential hypertension Unspecified essential hypertension Mixed hyperlipidemia Morbid obesity with BMI of 45.0-49.9, adult ([facility]/HCC) documented in this encounter [facility] Work Phone: Evaluation note* Diagnosis Bilateral leg weakness- Primary Muscle weakness (generalized) Difficulty walking Difficulty in walking Right leg pain Pain in soft tissues of limb documented in this encounter [facility] Healthcare[facility]* Diagnosis Type 2 diabetes mellitus with diabetic neuropathy, without long-term current use of insulin ([facility])- Primary Benign essential hypertension (CMS/HCC) Essential hypertension, benign Paroxysmal atrial fibrillation (CMS/HCC) Atrial fibrillation documented in this encounter [facility] HealthcareEvaluation note* Diagnosis Bilateral leg weakness- Primary Muscle weakness (generalized) Difficulty walking Difficulty in walking Right leg pain Pain in soft tissues of limb documented in this encounter [facility] HealthcareEvaluation note* Diagnosis Bilateral leg weakness- Primary Muscle weakness (generalized) Difficulty walking Difficulty in walking Right leg pain Pain in soft tissues of limb documented in this encounter [facility] HealthcareEvaluation note* Diagnosis Routine general medical examination at health care facility- Primary Routine general medical examination at a health care facility ACP (advance care planning) Other specified counseling Osteoarthritis of spine with radiculopathy, 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, without long-term current use of insulin ([facility]) Type 2 diabetes 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, without long-term current use of insulin ([facility]) Myasthenia gravis without (acute) exacerbation (G70.00) Atherosclerosis of habematolel artery of both lower extremities with intermittent claudication ([facility]) Morbid (severe) obesity due to excess calories (E66.01) Body mass index [BMI] 45.0-49.9, adult (Z68.42) documented in this encounter [facility] note* Diagnosis Myasthenia gravis ([facility])- Primary Myasthenia gravis without exacerbation Class 3 severe obesity due to excess calories with serious comorbidity and body mass index (BMI) of 45.0 to 49.9 in adult ([facility]) documented in this encounter [facility] Healthcare[facility] note* Diagnosis 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cosis of toenails of both feet- Primary Venous insufficiency Unspecified venous (peripheral) insufficiency documented in this encounter [facility] Healthcare[facility] note* Diagnosis Onset Date Resolution Status Acute hypokalemia acute Dyspnea acute Generalized weakness acute [facility] Work Phone: Evaluation note* Diagnosis Onset Date Resolution Status Acute exacerbation of myasthenia gravis acute Acute hypokalemia acute Dyspnea acute Generalized weakness acute History of pulmonary embolism acute JAMISON on CPAP acute Acute exacerbation of myasthenia gravis acute Dyspnea acute Generalized weakness acute History of pulmonary embolism acute JAMISON on CPAP acute [facility] Work Phone: Evaluation note* Diagnosis Cervical stenosis of spinal canal Spinal stenosis in cervical region documented in this encounter [facility] HealthcareHistory and physical note Author Mateo Horne [facility] June 19, 2024 2:37pm Note Date/Time June 19, 2024 2 :37pm [facility] [address] [place] [address] Hospitalist H&P Signed Patient: Taurus Garcia MR#: [id number] : 1945 Acct:[id number] Age/Sex: 78 / M Adm Date: 4 Loc: Room: [address] [place] [address] Type: ADM IN Attending Dr: Mateo Horne DO Copies to: MD Mateo Gonsalves II, ~ HPI DATE OF EXAMINATION: 06/19/24 CHIEF COMPLAINT: dyspnea, dyspnea on exertion, whole body fatigue. HISTORY OF PRESENT ILLNESS: This is an 78-year-old man who came to the emergency room this morning with complaints of worsening shortness of breath and dyspnea on exertion that have been getting particularly bad over the last 3 days. In the emergency room concern was raised for myasthenia gravis. They did contact neurology with Dr. Packer. This patient does have a known history of myasthenia gravis. He tells me that he has been taking his pyridostigmine religiously which looks like it is a dose of 60 mg 4 times a day, prescribed in neurology with Dr. Saunders, and taking prednisone 15 mg a day. Back in January he had an ER visit where myasthenia gravisexacerbation was suspected and his prednisone was increased to 60. Year ago, inS, he presented to the [facility] emergency room and had to be intubated. He completed a course of IVIG and was in the intensive care unit on the ventilator for some time. There was a brief atrial fibrillation with rapid ventricular response during that time but it was felt to be a singular isolated episode. Patient says that he injured his left knee in January. Since that time he has had physical therapy coming out of the house and he had been getting stronger on that until they came yesterday and he could barely participate with any therapy. The patient's blood pressure in emergency room was elevated 173/78. A portable chest x-ray was done. To my view this does show pulmonary edema. His serum creatinine is risen from 0.91 at his baseline up to 1.35. His potassium is a little bit low at 3.4. His B-type natriuretic peptide is elevated 114. In theemergency room he is having frequent premature ventricular contractions. 1 yearago his weight was 137.6 kg. Right now, on the ER bed scale, his weight is 145.1 kg. Review of Systems Review of Systems Review of systems: 10 systems are reviewed and are negative except as mentioned elsewhere in the documentation. [facility] Medical History (Updated 06/19/24 @ 14:33 by Mateo Horne DO) Myasthenia gravis Problem List clean-up per request of Phys. EHR Cmte Prostate hypertrophy Bladder cancer Problem List clean-up per request of Phys. EHR Cmte Pulmonary emboli Problem List clean-up per request of Phys. EHR Cmte HTN (hypertension) Problem List clean-up per request of Phys. EHR Cmte Acute exacerbation of myasthenia gravis Problem List clean-up per request of Phys. EHR Cmte Surgical History (Updated 06/19/24 @ 14:33 by Mateo Horne DO) History of cystoscopy Family History Other Hypertension Social History Smoking Status: Never smoker Substance Use Type: None Substance Abuse Comment: little etoh Meds Medications and Allergies Allergies No Known Allergies Allergy (Verified 06/19/24 09:45) Home Medications hydralazine 50 mg tablet 50 mg PO BID 12/27/17 [History Confirmed 06/19/24] lisinopril 20 mg tablet 20 mg PO DAILY 12/27/17 [History Confirmed 06/19/24] loratadine 10 mg tablet (Allergy Relief (loratadine)) 10 mg PO DAILY 12/27/17 [History Confirmed 06/19/24] cgrukqgl-fiv-traqq acid 0.4 mg-lycopene 300 mcg-lutein 250 mcg tablet (Adults 50Plus) 1 tab PO DAILY 12/27/17 [History Confirmed 06/19/24] omega-3 fatty acids-fish oil 360 mg-1,200 mg capsule (Fish Oil) 1 cap PO BID 12/27/17 [History Confirmed 06/19/24] simvastatin 40 mg tablet 40 mg PO HS 12/27/17 [History Confirmed 06/19/24] furosemide 20 mg tablet 20 mg PO DAILY 05/10/23 [History Confirmed 06/19/24] nebivolol 10 mg tablet 10 mg PO DAILY 05/10/23 [History Confirmed 06/19/24] apixaban 5 mg tablet (Eliquis) 5 mg PO Q12H #0 tabs 06/09/23 [Rx Confirmed 06/19/24] potassium chloride 10 mEq tablet,extended release(part/cryst) 10 meq PO DAILY 30days #30 tabs 06/09/23 [Rx Confirmed 06/19/24] prednisone 10 mg tablet 10 mg PO DAILY 30 days #30 tabs 06/09/23 [Rx Confirmed 06/19/24] pyridostigmine bromide 60 mg tablet 1 tab PO QID 30 days #120 tabs 06/09/23 [Rx Confirmed 06/19/24] triamterene 37.5 mg-hydrochlorothiazide 25 mg tablet (Maxzide-25mg) 1 tab PO DAILY 30 days #30 tabs 06/09/23 [Rx Confirmed 06/19/24] gabapentin 300 mg capsule 300 mg PO BID 06/19/24 [History Confirmed 06/19/24] hydrocodone 5 mg-acetaminophen 325 mg tablet 1 tab PO DAILY PRN pain 06/19/24 [History Confirmed 06/19/24] Allergy/Medication Comments: Please note that the home medication list may contain elements that are not accurate. This list of home medications will be updated during the hospital stay as more information becomes available. Exam Physical Exam Vital Signs: Temp Pulse Resp BP Pulse Ox O2 Del Method 98.7 F 60 20 147/68 H 94 L Room Air 06/19/24 09:44 06/19/24 14:13 06/19/24 14:13 06/19/24 14:13 06/19/24 14:13 06/19/24 14:13 Narrative: GEN: Awake, alert, oriented x 3. Head: Normal Cephalic, Atraumatic. Eyes: Conjunctiva and sclera clear bilaterally. His right eyelid is closed when I walk in the room. He explains that he had a retinal hemorrhage on the right eye in the past. He does keep his eyelids fairly closed and seems to havea little bit of difficulty opening them. Nose: External nose and nares normal bilaterally. Mouth: Lips and tongue normal. Mallampati grade 4. I cannot see his uvula or even the back of his mouth. Neck: No JVD. No thyromegaly. No lymphadenopathy. Lungs: Clear to auscultation bilaterally, no wheezing, no crackles. Heart: Regular rate and rhythm, no murmurs, rubs, or gallops. Abdomen: Very protuberant. To palpation this is entirely soft, normal bowel sounds, no rigidity, guarding, or acute peritoneal signs. Extremities: massive longstanding 3+ edema from above his knees down to his toes bilaterally. Skin: No systemic rashes or lesions. Psychiatric: Calm. Conversant. Cooperative. Results - Hospitalist H&P Lab Results Labs: Laboratory Last Values Corrected WBC 8.7 X10E3/uL (4.1-10.5) 06/19/24 09:49 Uncorrected WBC Count 8.7 x10E3/uL (4.1-10.5) 06/19/24 09:49 RBC 4.44 X10E6/uL (3.90-5.60) 06/19/24 09:49 Hgb 13.7 g/dL (13.0-17.0) 06/19/24 09:49 Hct 41.5 % (38.8-50.0) 06/19/24 09:49 MCV 93.6 fl (83.5-101) 06/19/24 09:49 MCH 31.0 pg (27.5-35.2) 06/19/24 09:49 MCHC 33.1 g/dL (32.5-35.6) 06/19/24 09:49 RDW 15.2 % (12.0-14.8) H 06/19/24 09:49 Plt Count 200 x10E3/uL (150-450) 06/19/24 09:49 MPV 8.1 fl (6.6-10.1) 06/19/24 09:49 Neut % (Auto) 59.0 % (.) 06/19/24 09:49 Lymph % (Auto) 27.5 % (.) 06/19/24 09:49 [place] % (Auto) 11.3 % (.) 06/19/24 09:49 Eos % (Auto) 1.2 % (.) 06/19/24 09:49 Baso % (Auto) 1.0 % (.) 06/19/24 09:49 Nucleat RBC Rel Count 0.1 /100 WBC (0-0.5) 06/19/24 09:49 Neut # (Auto) 5.1 x10E3/uL (1.8-7.7) 06/19/24 09:49 Lymph # (Auto) 2.4 x10E3/uL (1.00-4.8) 06/19/24 09:49 [place] # (Auto) 1.0 x10E3/uL (0.0-0.8) H 06/19/24 09:49 Eos # (Auto) 0.1 x10E3/uL (0.0-0.45) 06/19/24 09:49 Baso # (Auto) 0.1 x10E3/uL (0.0-0.2) 06/19/24 09:49 Monocyte Dist Width 17.50 % (0.00-20.00) 06/19/24 09:49 PHA Creatinine Clear 62.88 06/19/24 09:49 Sodium 144 mmol/L (136-145) 06/19/24 09:49 Potassium 3.4 mmol/L (3.5-5.1) L 06/19/24 09:49 Chloride 106 mmol/L (98-107) 06/19/24 09:49 Carbon Dioxide 29.8 mmol/L (21.0-31.0) 06/19/24 09:49 Anion Gap 11.6 mEq/L (6.0-15.0) 06/19/24 09:49 BUN 32 mg/dL (7-25) H 06/19/24 09:49 Creatinine 1.35 mg/dL (0.70-1.30) H 06/19/24 09:49 Est GFR (CKD-EPI) 53.076 mL/Min 06/19/24 09:49 Glucose 107 mg/dL (70-100) H 06/19/24 09:49 Calcium 9.0 mg/dL (8.6-10.3) 06/19/24 09:49 Total Bilirubin 0.8 mg/dl (0.3-1.0) 06/19/24 09:49 AST 21 U/L (13-39) 06/19/24 09:49 ALT 16 U/L (7-52) 06/19/24 09:49 Alkaline Phosphatase 52 U/L (34-104) 06/19/24 09:49 Total Creatine Kinase 153 U/L (30-223) 06/19/24 09:49 Troponin I High Sens 10.5 pg/mL (0.0-20.0) 06/19/24 09:49 B-Natriuretic Peptide 114.0 pg/mL (5-100) H 06/19/24 09:49 Total Protein 6.5 gm/dL (6.4-8.9) 06/19/24 09:49 Albumin 3.8 gm/dL (3.5-5.7) 06/19/24 09:49 Globulin 2.7 gm/dL 06/19/24 09:49 Albumin/Globulin Ratio 1.4 06/19/24 09:49 Assessment & Plan Assessment/Plan (1) Myasthenia gravis: (2) Generalized weakness: (3) Obstructive sleep apnea: (4) Impaired mobility and activities of daily living: (5) Hypertension: (6) Hyperlipidemia: (7) Atrial fibrillation: (8) Dyspnea: Plan Assessment: Acute exacerbation of myasthenia, with risk of myasthenia gravis crisis. Chronic prednisone use. Elevated blood pressure. Massive lower extremity edema. History of atrial fibrillation. History of pulmonary embolus. Chronic anticoagulation with Eliquis. Mild hypokalemia. Plan: Hospital admission, inpatient status. Please the patient ICU for close monitoring of his respiratory status. To support his respiration he should use BiPAP at nighttime. I discussed the case in detail with neurology with Dr. Orozco. At this time pyridostigmine will be increased to 90 mg 4 times a day and prednisone will be increased to 60 mg daily. Consult to pulmonology/critical care. I believe the patient's leg edema and elevated blood pressure to be problematic. I will start him on Lasix for diuresis. Given his prostate problems he would benefit from a male PureWick to help collect urine while we are diuresing him with Lasix. Check weights daily. Lowest possible sodium diet. Will check echocardiogram. Patient may require cardiology consultation if the echocardiogram is unchanged from the one a year ago. He is having frequent PVCs on the monitor. I will replace the potassium. I will check a magnesium level, but supplementing his magnesium should be done cautiously in the setting of myasthenia gravis. Consult to physical therapy Consult Occupational Therapy. Consult to speech therapy. Check hemoglobin A1c. IP vs OBS Justification Based on differential dx, clinical care plan, and risk of adverse events, if untreated, in my clinical judgement this patient requires an acute care setting as: INPATIENT because of an expectation of an over 2 midnight stay. Estimated length of stay (# of days): 5 Documented By: Mateo Horne DO 1426 Signed By: <Electronically signed by Mateo Horne, > 06/19/24 1437 [facility] Work Phone: History of Present illness Narrative* [...] medication regimen. He denies medication side effects. [facility] 250 DO Work Phone: History of Present [...] medication regimen. He denies medication side effects. [facility] 600 DO Work Phone: Hospital course Narrative No data available for this section [facility] Hospital Discharge instructions No data available for this section [facility] Hospital Discharge instructions Additional Instructions Inpatient Rehab [...] unable to urinate, harrell catheter removed on [facility] Work Phone: Hospital Discharge instructions Additional Instructions Call Dr. Saunders's office tomorrow [facility] are [facility] Phone: Progress note No data available for this section [facility] progress note Author Silvestre Grover [facility] June 10, 2023 9:35am Note Date/Time June 10, 2023 9 :35am [facility] [address] [place] [address] Physiatry(Rehab) Progress Note Signed Patient: Taurus Garcia MR#: [id number] : 1945 Acct:[id number] Age/Sex: 77 / M Adm Date: 3 Loc: Room: [address] [place] [address] Type: ADM IN Attending Dr: Silvestre Grover MD Copies to: ~ Date of Service: 06/09/2023 Subjective Subjective Narrative: Mr. Garcia is a 77 year old male with past medical history of myasthenia gravis,hypertension, A-fib anticoagulated with Eliquis, PE, CKD, obstructive sleep apnea on BiPAP, who presents to acute inpatient rehab with functional impairments due to MG crisis. Patient presented to [facility] on 05/11/2023 with complaints of worseninggeneralized weakness over the course of several days. He was found to be mildlyhypoxic. Also complaining of urinary symptoms. Initially admitted to [facility] for observation however developed worsening respiratory status with increased secretions and inability to protect own airway and was subsequently intubated and transferred to [facility] for neurology services. Patient received a 5-day [...] mg 05/21/23 14:25 Bisacodyl 10 Mg Supp.Rect AZ 05/20/24 14:24 DAILY PRN Constipation Docusate Sodium 100 mg 05/21/23 14:25 Docusate 100 Mg Capsule PO 05/20/24 14:24 BID PRN Constipation Docusate Sodium 283 mg 05/21/23 14:25 Docusate Enema 283 Mg/5 Ml Enema AZ 05/20/24 14:24 DAILY PRN Constipation Fish Oil 1,000 mg 05/21/23 21:00 06/10/23 09:09 Shaniko-3/Fish Oil 1,000 Mg Capsule PO 05/20/24 20:59 [...] 05/31/24 08:59 Not Given DAILY DORI Pyridostigmine Drybranch 60 mg 05/21/23 18:00 06/10/23 09:09 Pyridostigmine Drybranch 60 Mg Tablet PO 05/20/24 17:59 60 [...] impairments secondaryto myasthenic crisis. Initially admitted to [facility]. Had to be intubated [...] equipment to enhance the patient's a functional anabaptist Ensure adequate nutrition and hydration Sleep: No concerns. Pain: Continue current regimen Discharge planning: Hopefully home with his tomorrow. Plan: I completed a substantive portion of this encounter, the medical decision makingportion of this note in its entirety, including Allied health note review, nursing note review, health management consultant note review, discussion with nursing and case management, and more than 50% of my time was spent on counseling and coordination of care, time spent 25 minutes Patient was personally seen by me, Dr. Grover, on the day of encounter, reviewed the history and the relevant portions of the chart, including current orders, allied health and health management consultant notes, labs/imaging and performed garcia elements of exam and I formulated the plan of care and facilitated the medical decision making. Documented By: Silvestre Grover MD 06/10/23 0934 Signed By: <Electronically signed by Silvestre Grover MD> 06/10/23 0935 [facility] Work Phone: Reason for referral (narrative)* Consultation (Routine) - Authorized Specialty Diagnoses / Procedures Referred By Contac t Referred To Contact Cardiology Diagnoses Paroxysmal atrial fibrillation (CMS/HCC) Essential hypertension Mixed hyperlipidemia Procedures Follow Up In Cardiology Baltazar Hoover DO [address], [place] [address] [place] [id number] Baltazar Hoover DO [address] [place] [address] Referral ID Status Reason Start Date Expiration Date V isits Requested Visits Authorized [id number] Authorized 09/20/2023 09/19/2024 1 1 * Cardiovascular (Routine) - Authorized Specialty Diagnoses / Procedures Referred By Contac t Referred To Contact Diagnoses Paroxysmal atrial fibrillation (CMS/HCC) Procedures ECG 12 Lead Baltazar Hoover DO [address] [facility], [address] [address] Referral ID Status Reason Start Date Expiration Date V isits Requested Visits Authorized [id number] Authorized 09/20/2023 09/19/2024 1 1 * Cardiovascular (Routine) - Pending Review Specialty Diagnoses / Procedures Referred By Contac t Referred To Contact Cardiology Diagnoses Paroxysmal atrial fibrillation (CMS/HCC) Procedures Holter Or Event Hand Iii Cutter Baltazar Hoover DO [address] [facility], [address] [address] Referral ID Status Reason Start Date Expiration Date V isits Requested Visits Authorized [id number] Pending Review 09/20/2023 09/19/2024 1 1 * Consultation (Routine) - Authorized Specialty Diagnoses / Procedures Referred By Contac t Referred To Contact Cardiology Diagnoses Paroxysmal atrial fibrillation (CMS/HCC) Procedures Follow Up In Cardiology Baltazar Hoover DO [address] [facility], [address] [place] [address] Autumn Melonie Judith, WIRE TURNING MACHINE OPERATOR-COLLEGE COUNSELOR [address] [facility], [address] [place] [address] Referral ID Status Reason Start Date Expiration Date V isits Requested Visits Authorized [id number] Authorized 09/20/2023 09/19/[address] [facility] Work Phone: Summary Purpose Family History No Family History Records Found Relationship Condition Age at Onset Recorded Date/T jace Not Specified Hypertension Unknown Unknown Family Member Name Dates Details FHx: myocardial infarction: Father(V17.3, Z82.49) Status:Active Unknown Family Member Name Dates Details FHx: myocardial infarction: Father(V17.3, Z82.49) Status:Active Relationship Condition Age at Onset Recorded Date/T jace Not Specified Malignant neoplasm Unknown Hypertension Unknown Advance Directives No Advanced Directives Records Found [...] Pulmonary emboli Chief Complaint Weakness Chief Complaint sob, weakness Reason for Visit Acute hypokalemia Dyspnea Generalized weakness Chief Complaint sob, weakness sob, weakness sob, weakness Myasthenia Gravis Exacerbation Reason for Visit Acute exacerbation o f myasthenia gravis Acute hypokalemia Dyspnea Generalized weakness History of pulmonary embolism JAMISON on CPAP Acute exacerbation of myasthenia gravis Dyspnea Generalized weakness History of pulmonary embolism JAMISON on CPAP Chief Complaint Admit Date sob, weakness June 19, 2024 1 :56pm sob, weakness June 19, 2024 6 :39pm sob, weakness June 21, 2024 1 2:27pm Myasthenia Gravis Exacerbation June 22, 2024 2:40pm Myasthenia Gravis Exacerbation June 22, 2024 3:00pm Myasthenia Gravis Exacerbation June 24, 2024 1:52pm Myasthenia Gravis Exacerbation July 01, 2024 1:53pm Reason for Visit Admit Date Dyspnea June 19, 2024 1 :56pm History of pulmonary embolism June 192023 1:56pm JAMISON on CPAP June 19, 2024 1 :56pm Acute exacerbation of myasthenia gravis June 19, 2024 1:56pm Hyperlipidemia June 19, 2024 1 :56pm Hypertension June 19, 2024 1 :56pm Atrial fibrillation June 19, 2024 1 :56pm Impaired mobility and activities of j[place] living June 19, 2024 1:56pm Myasthenia gravis June 19, 2024 1 :56pm Obstructive sleep apnea June 19 1:56pm Acute hypokalemia June 19, 2024 1 :56pm Generalized weakness June 19, 2024 1:56pm Chronic anticoagulation June 22 2:40pm Dyspnea June 22, 2024 2 :40pm History of pulmonary embolism June 222023 2:40pm JAMISON on CPAP June 22, 2024 2 :40pm Acute exacerbation of myasthenia gravis June 22, 2024 2:40pm Hypertension June 22, 2024 2 :40pm Impaired mobility and activities of j[place] living June 22, 2024 2:40pm Generalized weakness June 22, 2024 2:40pm Chief Complaint Admit Date sob, weakness June 19, 2024 1 :56pm sob, weakness June 19, 2024 6 :39pm sob, weakness June 21, 2024 1 2:27pm Myasthenia Gravis Exacerbation June 22, 2024 2:40pm Myasthenia Gravis Exacerbation June 22, 2024 3:00pm Myasthenia Gravis Exacerbation June 24, 2024 1:52pm Myasthenia Gravis Exacerbation July 01, 2024 1:53pm weakness July 09, 2024 5:43pm Reason for Visit Admit Date Dyspnea June 19, 2024 1 :56pm History of pulmonary embolism June 192023 1:56pm JAMISON on CPAP June 19, 2024 1 :56pm Acute exacerbation of myasthenia gravis June 19, 2024 1:56pm Hyperlipidemia June 19, 2024 1 :56pm Hypertension June 19, 2024 1 :56pm Atrial fibrillation June 19, 2024 1 :56pm Impaired mobility and activities of j[place] living June 19, 2024 1:56pm Myasthenia gravis June 19, 2024 1 :56pm Obstructive sleep apnea June 19 1:56pm Acute hypokalemia June 19, 2024 1 :56pm Generalized weakness June 19, 2024 1:56pm Chronic anticoagulation June 22 2:40pm Dyspnea June 22, 2024 2 :40pm History of pulmonary embolism June 222023 2:40pm JAMISON on CPAP June 22, 2024 2 :40pm Acute exacerbation of myasthenia gravis June 22, 2024 2:40pm Hypertension June 22, 2024 2 :40pm Impaired mobility and activities of j[place] de [place] y living June 22, 2024 2:40pm Generalized weakness June 22, 2024 2:40pm MATT (acute kidney injury) July 09, 2024 5:43pm Change in vision July 09, 2024 5:43pm Generalized weakness July 09, 2024 5:43pm Chief Complaint * Annual f/u: 'doing good' * TAURUS GARCIA is being seen for an annual follow-up of PE, primary prevention. * Annual f/u: 'doing good' * TAURUS GARICA is being seen for an annual follow-up [...] section and content) DATE CREATED AUTHOR 02/07/2018 [facility] DATE CREATED AUTHOR AUTHOR'S ORGANIZ ATION 09/01/2021 [facility] DATE CREATED AUTHOR AUTHOR'S ORGANIZ ATION 01/21/2022 [facility] DATE CREATED AUTHOR AUTHOR'S ORGANIZ ATION 02/12/2022 [facility] dical Specialist DATE CREATED AUTHOR AUTHOR'S ORGANIZ ATION 07/28/2022 [facility] DATE CREATED AUTHOR AUTHOR'S ORGANIZ ATION 10/19/2022 [facility] DATE CREATED AUTHOR AUTHOR'S ORGANIZ ATION 05/26/2023 [facility] DATE CREATED AUTHOR AUTHOR'S ORGANIZ ATION 09/24/2023 [facility] DATE CREATED AUTHOR AUTHOR'S ORGANIZ ATION 10/18/2023 [facility] DATE CREATED AUTHOR AUTHOR'S ORGANIZ ATION 11/17/2023 [facility] DATE CREATED AUTHOR AUTHOR'S ORGANIZ ATION 06/19/2024 [facility] DATE CREATED AUTHOR AUTHOR'S ORGANIZ ATION 07/26/2024 [facility] dical Specialists [facility] DATE CREATED AUTHOR AUTHOR'S ORGANIZ ATION 09/03/2024 [facility] Care Team (unrecognized sect ion and content) Team Status: Active Member Role Status Dates Komal Nguyen II MD Primary Care Provider Active Team Status: Inactive Member Role Status Dates Komal Nguyen II MD Primary Care Provider Active Start: June 19, 2024 End: June 22, 2024 Dg Armendariz DO Emergency Provider Active Start: June 19, 2024 End: June 22, 2024 Mateo Horne DO Admit Provider , Attending Provider Active Start: June 19, 2024 End: June 22, 2024 Silvestre Grover MD Other Provider Active Start: O ctober 2023 End: June 22, 2024 Jamel Packer DO Other Provider Active Start: June 19, 2024 End: June 22, 2024 Abi Biswas MD Other Provider Active Start: June 19, 2024 End: June 22, 2024 Team Status: Active Member Role Status Dates Komal Nguyen II MD Primary Care Provider Active Start: June 19, 2024 Dg Armendariz DO Emergency Provider Active Start: June 19, 2024 Mateo Horne DO Admit Provider , Other Provider Active Start: June 19, 2024 Jamel Packer DO Other Provider Active Start: June 19, 2024 Abi Biswas MD Attending Pr ovider, Other Provider Active Start: June 19, 2024 Team Status: Active Member Role Status Dates Komal Nguyen II MD Primary Care Provider Active Start: June 21, 2024 Dg Armendariz DO Emergency Provider Active Start: June 21, 2024 Mateo Horne DO Admit Provider , Other Provider Active Start: June 21, 2024 Silvestre Grover MD Other Provider Active Start: N ov2023 Jamel Packer , DO Other Provider Active Start: June 21, 2024 Abi Biswas MD Other Provider Active Start: June 21, 2024 Fidel Bennett MD Attending Provider Active Start: June 21, 2024 Team Status: Active Member Role Status Dates Komal Nguyen II MD Primary Care Provider Active Start: June 22, 2024 Silvestre Grover MD Admit Provider, Atte nding Provider Active Start: June 22, 2024 Team Status: Active Member Role Status Dates Komal Nguyen II MD Primary Care Provider Active Start: June 19, 2024 Dg Armendariz , Emergency Provider Active Start: June 19, 2024 Mateo Horne , Admit Provider , Attending Provider Active Start: June 19, 2024 Jamel Packer , Other Provider Active Start: June 19, 2024 Abi Biswas MD Other Provider Active Start: June 19, 2024 Team Status: Inactive Member Role Status Dates Komal Nguyen II MD Primary Care Provider Active Ivan Barnhart MD Attending Provider Active Blister Rust Eradicator Relationship Specialty Start Date End Date Komal Nguyen II [address] [place] [address] PCP - General Internal Medicine 12/05/16 Blister Rust Eradicator Relationship Specialty Start Date End Date Komal Nguyen II [address] [place] [address] PCP - General Internal Medicine 12/05/16 Blister Rust Eradicator Relationship Specialty Start Date End Date Komal Nguyen MD [address] [place] [address] PCP - General Internal Medicine 10/14/22 Team [...] DO Other Provider Active Nikole Mosqueda , WIRE TURNING MACHINE OPERATOR Other Provider Active Rubia Henning , DOG POUND ATTENDANT-C Other Provider Active Mookie Coffey , WIRE TURNING MACHINE OPERATOR-STAKE DRIVER-C Other Provider Active Silvestre Grover MD Other Provider Active Donita Armstrong , WIRE TURNING MACHINE OPERATOR ACNP-BC Other Provider Active Lexy Chappell MD Other Provider Active Stanley Burt MD Other Provider Active Rhonda Rawls MD Other Provider Active Colten Xavier [...] HEATHER Other Provider Active Melva Mendoza , HEATHER Other Provider Active Cassi Lo , HEATHER Other Provider Active Rocio Renner , RN Other Provider Active Alessia Justin , HEATHER Other Provider Active Chayito Leone , RN Other Provider Active Kevin Leo MD Other Provider Active Blank Leon , WIRE TURNING MACHINE OPERATOR Other Provider Active Meri Blanco , DO [...] MD Other Provider Active Candida Perez , DOG POUND ATTENDANT-C Other Provider Active Kushal Vizcarra MD Other Provider Active Torsten Burdick MD Other Provider Active Dudley Leon MD Other Provider Active Markus Johnson MD Other Provider Active Sofia Martinez , DO Other Provider Active Zia Duncan , DO Other Provider Active Rodolfo Temple , DO Other Provider Active Susanne Sharma , WIRE TURNING MACHINE OPERATOR Other Provider Active Dru Reveles , DO Other Provider Active Jarret Garza MD Other Provider Active Yuki Rizvi , WIRE TURNING MACHINE OPERATOR Other Provider Active Queenie Shepherd , WIRE TURNING MACHINE OPERATOR Other Provider Active Suraj Razo MD Other Provider Active Komal Albright MD Other Provider Active Angelia Gamez , WIRE TURNING MACHINE OPERATOR Other Provider Active Mariana Xiong , RN Other Provider Active Blister Rust Eradicator Relationship Specialty Start Date End Date Komal Nguyen MD [address] [place] [address] PCP - General 05/18/23 Blister Rust Eradicator Relationship Specialty Start Date End Date Komal Nguyen MD [address] [place] [address] PCP - General Internal Medicine 01/02/23 Komal Nguyen MD [address] [place] [address] PCP - ACO Reach 01/12/23 Blister Rust Eradicator Relationship Specialty Start Date End Date Komal Nguyen MD [address] [place] [address] PCP - General Internal Medicine 01/02/23 Komal Nguyen MD [address] [place] [address] PCP - ACO Reach 01/12/23 Blister Rust Eradicator Relationship Specialty Start Date End Date Komal Nguyen MD [address] [place] [address] PCP - General Internal Medicine 01/02/23 Komal Nguyen MD [address] [place] [address] PCP - ACO Reach 01/12/23 Blister Rust Eradicator Relationship Specialty Start Date End Date Komal Nguyen MD [address] [place] [address] PCP - General Internal Medicine 01/02/23 Komal Nguyen MD [address] [place] [address] PCP - ACO Reach 01/12/23 Blister Rust Eradicator Relationship Specialty Start Date End Date Komal Nguyen MD [address] [place] [address] PCP - General Internal Medicine 01/02/23 Komal Nguyen MD [address] [place] [address] PCP - ACO Reach 01/12/23 Blister Rust Eradicator Relationship Specialty Start Date End Date Komal Nguyen MD [address] [place] [address] PCP - General Internal Medicine 01/02/23 Komal Nguyen MD [address] [place] [address] PCP - ACO Reach 01/12/23 Team Status: Inactive Member Role Status Dates Komal Nguyen II MD Primary Care Provider Active Start: February 12, 2024 End: February 12, 2024 Eriberto Rizvi MD Emergency Provider Active Star t: February 12, 2024 End: February 12, 2024 Blister Rust Eradicator Relationship Specialty Start Date End Date Komal Nguyen MD [address] [place] [address] PCP - General Internal Medicine 01/02/23 Komal Nguyen MD [address] [place] [address] PCP - ACO Reach 01/12/23 Blister Rust Eradicator Relationship Specialty Start Date End Date Komal Nguyen MD [address] [place] [address] PCP - General Internal Medicine 01/02/23 Komal Nguyen MD [address] [place] [address] PCP - ACO Reach 01/12/23 Blister Rust Eradicator Relationship Specialty Start Date End Date Komal Nguyen MD [address] [place] [address] PCP - General Internal Medicine 01/02/23 Komal Nguyen MD [address] [place] [address] PCP - ACO Reach 01/12/23 Team Status: Inactive Member Role Status Dates Komal Nguyen II MD Primary Care Provider Active Start: June 22, 2024 End: July 04, 2024 Silvestre Grover MD Admit Provider, Atte nding Provider Active Start: June 22, 2024 End: July 04, 2024 Libby Potter RN Other Provider Active Star t: June 22, 2024 End: July 04, 2024 Melva Mendoza , HEATHER Other Provider Active Start : June 22, 2024 End: July 04, 2024 Rocio Renner RN Other Provider Active Star t: June 22, 2024 End: July 04, 2024 Chayito Leone RN Other Provider Active Start: N ovcarolyne 2023 End: July 04, 2024 Alem Hinds , HEATHER Other Provider Active Start: No vember 2023 End: July 04, 2024 Kevin Leo MD Other Provider Active Start: June 22, 2024 End: July 04, 2024 Meri Blanco DO Other Provider Active Start : June 22, 2024 End: July 04, 2024 Ubaldo Calvo MD Other Provider Active Start : June 22, 2024 End: July 04, 2024 Mateo Horne DO Other Provider Active Start: June 22, 2024 End: July 04, 2024 Tyson Cheema MD Other Provider Active Start: June 22, 2024 End: July 04, 2024 Marsha Fritz MD Other Provider Active Start : June 22, 2024 End: July 04, 2024 Danie Calles DO Other Provider Active St art: June 22, 2024 End: July 04, 2024 Keaton Reddy MD Other Provider Active Start: N 2023 End: July 04, 2024 Meera Vargas APRN Other Provider Active Start: June 22, 2024 End: July 04, 2024 Eliezer Newell MD Other Provider Active Start: June 22, 2024 End: July 04, 2024 Dustin Stapleton MD Other Provider Active Start: N ov2023 End: July 04, 2024 Ute Colvin MD Other Provider Active Start: June 22, 2024 End: July 04, 2024 Chau Lara MD Other Provider Active Start: June 22, 2024 End: July 04, 2024 Danie Jaramillo DO Other Provider Active Start: June 22, 2024 End: July 04, 2024 Chetan Gray MD Other Provider Active Start: No vember 2023 End: July 04, 2024 Cuong Dos Santos MD Other Provider Active Start: Jun End: July 04, 2024 MÓNICA Marcos Other Provider Active St art: June 22, 2024 End: July 04, 2024 Manuel Díaz APRN Other Provider Active Star t: June 22, 2024 End: July 04, 2024 Kushal Vizcarra MD Other Provider Active Start: June 22, 2024 End: July 04, 2024 Torsten Burdick MD Other Provider Active Start: No vember 2023 End: July 04, 2024 Dudley Leon MD Other Provider Active Start: Jun End: July 04, 2024 Mo Bauer MD Other Provider Active Star t: June 22, 2024 End: July 04, 2024 Markus Johnson MD Other Provider Active Start: N ov2023 End: July 04, 2024 Sofia Martinez , Other Provider Active Start: No 2023 End: July 04, 2024 Zia Duncan , Other Provider Active Start : June 22, 2024 End: July 04, 2024 Susanne Sharma APRN Other Provider Active Start: June 22, 2024 End: July 04, 2024 Dru Reveles DO Other Provider Active Start: June 22, 2024 End: July 04, 2024 Jarret Garza MD Other Provider Active Sta rt: June 22, 2024 End: July 04, 2024 Yuki Rizvi APRN Other Provider Active Start : June 22, 2024 End: July 04, 2024 Queenie Shepherd APRN Other Provider Active St art: June 22, 2024 End: July 04, 2024 Suarj Razo MD Other Provider Active Start: N 2023 End: July 04, 2024 Komal Albright MD Other Provider Active S tart: June 22, 2024 End: July 04, 2024 Cliff Cabral , Other Provider Active Star t: June 22, 2024 End: July 04, 2024 Иван Carreon DO Other Provider Active Start: June 22, 2024 End: July 04, 2024 Bharathi Leon MD Other Provider Active Start: June 22, 2024 End: July 04, 2024 Vince Shirley MD Other Provider Active Start: June 22, 2024 End: July 04, 2024 Nikole Jaeger APRN Other Provider Active Star t: June 22, 2024 End: July 04, 2024 Kaz Prescott MD Other Provider Active Start: N ov2023 End: July 04, 2024 Kamaljit Melo MD Other Provider Active Start: No vember 2023 End: July 04, 2024 Mariana Xiong , HEATHER Other Provider Active Start: N ov2023 End: July 04, 2024 Team Status: Active Member Role Status Dates Komal Nguyen II MD Primary Care Provider Active Start: June 22, 2024 Silvestre Grover MD Admit Provider, Othe r Provider Active Start: June 22, 2024 Libby Potter RN Other Provider Active Star t: June 22, 2024 Melva Mendoza RN Other Provider Active Start : June 22, 2024 Rocio Renner RN Other Provider Active Star t: June 22, 2024 Chayito Leone , HEATHER Other Provider Active Start: N 2023 Alem Hinds RN Other Provider Active Start: No vember 2023 Kevin Leo MD Other Provider Active Start: June 22, 2024 Meri Blanco DO Other Provider Active Start : June 22, 2024 Ubaldo Calvo MD Other Provider Active Start : June 22, 2024 Mateo Horne DO Other Provider Active Start: June 22, 2024 Tyson Cheema MD Other Provider Active Start: June 22, 2024 Marsha Fritz MD Other Provider Active Start : June 22, 2024 Danie Calles DO Other Provider Active St art: June 22, 2024 Keaton Reddy MD Other Provider Active Start: N 2023 Meera Vargas APRN Other Provider Active Start: June 22, 2024 Eliezer Newell MD Other Provider Active Start: June 22, 2024 Dustin Stapleton MD Other Provider Active Start: N 2023 Ute Colvin MD Other Provider Active Start: June 22, 2024 Chau Lara MD Other Provider Active Start: June 22, 2024 Danie Jaramillo DO Other Provider Active Start: June 22, 2024 Chetan Gray MD Other Provider Active Start: No vember 2023 Cuong Dos Santos MD Other Provider Active Start: Jun Candida Perez NP-C Other Provider Active St art: June 22, 2024 Manuel Díaz APRN Other Provider Active Star t: June 22, 2024 Kushal Vizcarra MD Other Provider Active Start: June 22, 2024 Torsten Burdick MD Other Provider Active Start: No vem2023 Dudley Leon MD Other Provider Active Start: Nov 2023 Mo Bauer MD Other Provider Active Star t: June 22, 2024 Markus Johnson MD Other Provider Active Start: N ov2023 Sofia Martinez , Other Provider Active Start: No 2023 Zia Duncan , Other Provider Active Start : June 22, 2024 Susanne Sharma APRN Other Provider Active Start: June 22, 2024 Dru Reveles DO Other Provider Active Start: June 22, 2024 Jarret Garza MD Other Provider Active Sta rt: June 22, 2024 Yuki Rizvi APRN Other Provider Active Start : June 22, 2024 Queenie Shepherd APRN Other Provider Active St art: June 22, 2024 Suraj Razo MD Other Provider Active Start: N 2023 Komal Albright MD Other Provider Active S tart: June 22, 2024 Cliff Cabral , Other Provider Active Star t: June 22, 2024 Иван Carreon DO Other Provider Active Start: June 22, 2024 Bharathi Leon MD Other Provider Active Start: June 22, 2024 Vince Shirley MD Other Provider Active Start: June 22, 2024 Nikole Jaeger APRN Other Provider Active Star t: June 22, 2024 Kaz Prescott MD Other Provider Active Start: N 2023 Kamaljit Meol MD Other Provider Active Start: No 2023 Mariana Xiong RN Other Provider Active Start: N 2023 Antonia Grier APRN Attending Provider Active Start: June 22, 2024 Team Status: Active Member Role Status Dates Komal Nguyen II MD Primary Care Provider Active Start: June 24, 2024 Silvestre Grover MD Admit Provider, Othe r Provider Active Start: June 24, 2024 Libby Potter RN Other Provider Active Star t: June 24, 2024 Melva Mendoza RN Other Provider Active Start : June 24, 2024 Rocio Renner RN Other Provider Active Star t: June 24, 2024 Chayito Leone RN Other Provider Active Start: N 2023 Alem Hinds RN Other Provider Active Start: No vem2023 Kevin Leo MD Other Provider Active Start: June 24, 2024 Meri Blanco , Other Provider Active Start : June 24, 2024 Ubaldo Calvo MD Other Provider Active Start : June 24, 2024 Mateo Horne , Other Provider Active Start: June 24, 2024 Tyson Cheema MD Other Provider Active Start: June 24, 2024 Marsha Fritz MD Other Provider Active Start : June 24, 2024 Danie Calles DO Other Provider Active St art: June 24, 2024 Keaton Reddy MD Other Provider Active Start: N 2023 Meera Vargas APRN Other Provider Active Start: June 24, 2024 Eliezer Newell MD Other Provider Active Start: June 24, 2024 Dustin Stapleton MD Other Provider Active Start: N 2023 Ute Colvin MD Other Provider Active Start: June 24, 2024 Chau Lara MD Other Provider Active Start: June 24, 2024 Danie Jaramillo DO Other Provider Active Start: June 24, 2024 Chetan Gray MD Other Provider Active Start: No vem2023 Cuong Dos Santos MD Other Provider Active Start: Jun MÓNICA Marcos Other Provider Active St art: June 24, 2024 Manuel Díaz APRN Other Provider Active Star t: June 24, 2024 Kushal Vizcarra MD Other Provider Active Start: June 24, 2024 Torsten Burdick MD Other Provider Active Start: No vem2023 Dudley Leon MD Other Provider Active Start: Jun Mo Bauer MD Other Provider Active Star t: June 24, 2024 Markus Johnson MD Other Provider Active Start: N 2023 Sofia Martinez DO Other Provider Active Start: No vem2023 Zia Duncan , DO Other Provider Active Start : June 24, 2024 Susanne Sharma APRN Other Provider Active Start: June 24, 2024 Dru Reveles , Other Provider Active Start: June 24, 2024 Jarret Garza MD Other Provider Active Sta rt: June 24, 2024 Yuki Rizvi APRN Other Provider Active Start : June 24, 2024 Queenie Shepherd APRN Other Provider Active St art: June 24, 2024 Suraj Razo MD Other Provider Active Start: N 2023 Komal Albright MD Other Provider Active S tart: June 24, 2024 Cliff Cabral , Other Provider Active Star t: June 24, 2024 Иван Carreon , Other Provider Active Start: June 24, 2024 Bharathi Leon MD Other Provider Active Start: June 24, 2024 Vince Shirley MD Other Provider Active Start: June 24, 2024 Nikole Jaeger APRN Other Provider Active Star t: June 24, 2024 Kaz Prescott MD Other Provider Active Start: N 2023 Kamaljit Melo MD Other Provider Active Start: No 2023 Mariana Xiong RN Other Provider Active Start: N 2023 Fidel Bennett MD Attending Provider Active Start: June 24, 2024 Team Status: Active Member Role Status Dates Komal Nguyen II MD Primary Care Provider Active Start: July 01, 2024 Silvestre Grover MD Admit Provider, Atte nding Provider, Other Provider Active Start: July 01, 2024 Libby Potter , HEATHER Other Provider Active Star t: July 01, 2024 Melva Mendoza , HEATHER Other Provider Active Start : July 01, 2024 Rocio Renner , HEATHER Other Provider Active Star t: July 01, 2024 Chayito Leone RN Other Provider Active Start: N 2023 Alem Hinds RN Other Provider Active Start: No vem2023 Kevin Leo MD Other Provider Active Start: July 01, 2024 Meri Blanco DO Other Provider Active Start : July 01, 2024 Ubaldo Calvo MD Other Provider Active Start : July 01, 2024 Mateo Horne , Other Provider Active Start: July 01, 2024 Tyson Cheema MD Other Provider Active Start: July 01, 2024 Marsha Fritz MD Other Provider Active Start : July 01, 2024 Danie Calles DO Other Provider Active St art: July 01, 2024 Keaton Reddy MD Other Provider Active Start: N 2023 Meera Vargas APRN Other Provider Active Start: July 01, 2024 Eliezer Newell MD Other Provider Active Start: July 01, 2024 Dustin Stapleton MD Other Provider Active Start: N 2023 Ute Colvin MD Other Provider Active Start: July 01, 2024 Chau Lara MD Other Provider Active Start: July 01, 2024 Danie Jaramillo DO Other Provider Active Start: July 01, 2024 Chetan Gray MD Other Provider Active Start: No 2023 Cuong Dos Santos MD Other Provider Active Start: Jun Candida Perez , DOG POUND ATTENDANT-C Other Provider Active St art: July 01, 2024 Manuel Díaz APRN Other Provider Active Star t: July 01, 2024 Kushal Vizcarra MD Other Provider Active Start: July 01, 2024 Torsten Burdick MD Other Provider Active Start: No 2023 Dudley Leon MD Other Provider Active Start: Jun Mo Bauer MD Other Provider Active Star t: July 01, 2024 Markus Johnson MD Other Provider Active Start: N 2023 Sofia Martinez , Other Provider Active Start: No 2023 Zia Duncan , Other Provider Active Start : July 01, 2024 Susanne Sharma APRN Other Provider Active Start: July 01, 2024 Dru Reveles DO Other Provider Active Start: July 01, 2024 Jarret Garza MD Other Provider Active Sta rt: July 01, 2024 Yuki Rizvi , ZACH Other Provider Active Start : July 01, 2024 Queenie Shepherd APRN Other Provider Active St art: July 01, 2024 Suraj Razo MD Other Provider Active Start: N ov2023 Komal Albright MD Other Provider Active S tart: July 01, 2024 Cliff Cabral , DO Other Provider Active Star t: July 01, 2024 Иван Carreon , DO Other Provider Active Start: July 01, 2024 Bharathi Leon MD Other Provider Active Start: July 01, 2024 Vince Shirley MD Other Provider Active Start: June Nikole Jaeger APRN Other Provider Active Star t: July 01, 2024 Kaz Prescott MD Other Provider Active Start: N 2023 Kamaljit Melo MD Other Provider Active Start: No vember 2023 Mariana Xiong RN Other Provider Active Start: N ov2023 Team Status: Active Member Role Status Dates Komal Nguyen II MD Primary Care Provider Active Start: July 09, 2024 Juli Thomas APRN Emergency Provider Active Start: July 09, 2024 Danie Jaramillo , Admit Provider, Atte nding Provider Active Start: July 09, 2024 Jamel Packer DO Other Provider Active Start: July 09, 2024 Blister Rust Eradicator Relationship Specialty Start Date End Date Komal Nguyen MD [address] [facility] [address] [place] [address] PCP - General Internal Medicine 01/02/23 Komal Nguyen MD [address] [facility] [address] [place] [address] PCP - ACO Reach 01/12/23 Blister Rust Eradicator Relationship Specialty Start Date End Date Komal Nguyen MD [address] [facility] [address] [place] [address] PCP - General Internal Medicine 01/02/23 Komal Nguyen MD [address] [facility] [address] [place] [address] PCP - ACO Reach 01/12/23 Blister Rust Eradicator Relationship Specialty Start Date End Date Komal Nguyen MD [address] [facility] [address] [place] [address] PCP - General Internal Medicine 01/02/23 Komal Nguyen MD [address] [facility] [address] [place] [address] PCP - ACO Reach 01/12/23 Source Comments (unrecognize d section and content) In the event this informatio n is protected by the Federal Confidentiality of Alcohol and Drug Abuse Patient Records regulations: The Federal rules restrict any use of the information to criminally investigate or prosecute any alcohol or drug abuse patient.[facility] the event this information is protected by the Federal Confidentiality of Alcohol and Drug Abuse Patient Records regulations: The Federal rules restrict any use of the information to criminally investigate or prosecute any alcohol or drug abuse patient.[facility] Reason for Visit (unrecogniz ed section and content) Reason Comments Bladder Cancer Specialty Diagnoses / Procedures Referred By Contac t Referred To Contact Diagnoses Fever, unspecified Fever, immunocompromised patient Honorio Vuong MD [address] [place] [address] [facility] [address] [place] [address] Referral ID Status Reason Start Date Expiration Date Visits Re quested Visits Authorized [id number] 1 1 Reason Comments Follow-up 1yr Specialty Diagnoses / Procedures Referred By Contac t Referred To Contact Diagnoses Paroxysmal atrial fibrillation ([facility]) Procedures ECG 12 Lead Baltazar Hoover, DO [address] [facility] [address] [place] [address] Referral ID Status Reason Start Date Expiration Date V isits Requested Visits Authorized [id number] Authorized 09/20/2023 09/19/2024 1 1 Specialty Diagnoses / Procedures Referred By Contac t Referred To Contact Physical Therapy Diagnoses Myasthenia gravis without (acute) exacerbation (CMS/[facility]) Procedures [place] PHYSICAL THERAPY EVALUATION LOW COMPLEX 20 MINS Stanley Saunders MD [address] [place] [address] Darinel Smith, PT [address] [facility] [address] [place] [address] Referral ID Status Reason Start Date Expiration Date V isits Requested Visits Authorized [id number] Authorized 09/01/2023 02/28/2024 30 30 Reason Comments Medicare Annual Wellness Visit Evelia t Results labs discuss medication dosage Pt states rece ntly he increased his gabapentin to 2 capsules --if this is ok will need directions changed Reason Comments Toenail Care Non DM Nails Reason Comments Med Refill Reason Comments Follow-up Hospital for dehydra tion. Patient feels weak and sore all over. Goals (unrecognized section and content) Goals may be documented in a n alternate section Scheduled Active and Recently Administ ered Medications (unrecognized section and content) Medication Order 10/16/2022 10/17/2022 10/18/2022 amLODIPine (NORVASC) tablet 5 mg 5 mg, Oral, DAILY, First dose on 10/16/22 at 1300, Until Discontinued 1201 (Given - Provider: Pippa Uriarte RN) 0815 (Given - Provider: Adebayo Lopez RN) 09 (Given - Provider: Adebayo Lopez RN) apixaban (ELIQUIS) tablet 5 mg 5 mg, Oral, 2 times daily, First dose on 10/16/22 at 1200, Until Discontinued, Indication of Use: History of DVT/PE (indefinite), ANTICOAGULANT 1257 (Given - Provider: Pippa Uriarte RN)2037 (Given - Provider: Shasta Ryan) 0816 (Given - Provider: Adebayo Lopez RN)2045 (Given - Provider: Silke Haney RN) 09 (Given - Provider: Adebayo Lopez RN)2100 (Due) carvedilol (COREG) tablet 12.5 mg 12.5 mg, Oral, DAILY, First dose on 10/16/22 at 1300, Until Discontinued, Administer with food to minimize the risk of orthostatic hypotension 1202 (Given - Provider: Pippa Uriarte RN) 0815 (Given - Provider: Adebayo Lopez RN) 09 (Given - Provider: Adebayo Lopez RN) cefepime (MAXIPIME) 2,000 mg in sterile water 20 mL IV syringe (CANCELED) 2,000 mg, IntraVENous, at 40 mL/hr, Administer over 30 Minutes, EVERY 12 HOURS, First dose on 10/16/22 at 1815, For 14 days, Administer as slow IV Push over 5 mins Reconstitute 2 g vial with 10 mL of designated diluent. Then, to produce a 100 mg/mL solution, further dilute in syringe to 20 mL. 1904 (Given - Provider: Shasta Ryan) 0630 (Given - Provider: Shasta Ryan) furosemide (LASIX) tablet 20 mg 20 mg, Oral, DAILY, First dose on 10/16/22 at 1300, Until Discontinued 1202 (Given - Provider: Pippa Uriarte RN) 0816 (Given - Provider: Adebayo Lopez RN) 0923 (Given - Provider: Adebayo Lopez RN) gabapentin (NEURONTIN) capsule 300 mg 300 mg, Oral, DAILY, First dose on 10/16/22 [...] Shasta Ryan)0816 (Given - Provider: Adebayo Lopez RN)170 (Given - Provider: Adebayo Lopez RN) 09 (Given - Provider: Adebayo Lopez RN)1700 (Due) potassium chloride (KLOR-CON M) extended release tablet 40 mEq (COMPLETED) 40 mEq, Oral, ONCE, 1 dose, On Mon10/18/22 at 0745, Do not crush, chew, or suck on tablet. Tablet may also be broken in half and each half swallowed separately. 09 (Given - Provider: Adebayo Lopez RN) pyridostigmine (MESTINON) tablet 60 mg 60 mg, Oral, 4 TIMES DAILY, First dose on Mon10/16/22 at 1300, Until Discontinued 1202 (Given - Provider: Pippa Uriarte RN)1717 (Given - Provider: Pippa Uriarte RN)203 (Given - Provider: Shasta Ryan) 0816 (Given - Provider: Adebayo Lopez RN)1238 (Given - Provider: Adebayo Lopez, HEATHER)1702 (Given - Provider: Adebayo Lopez, HEATHER)204 (Given - Provider: Silke Haney RN) 09 (Given - Provider: Adebayo Lopez RN)1300 (Due)1700 (Due)2100 (Due) sodium chloride flush 0.9 % injection 5-40 mL 5-40 mL, IntraVENous, EVERY 12 HOURS SCHEDULED (2 times per day), First dose on Mon10/15/22 at 2100, Until Discontinued, For Line Patency: [...] - Provider: Adebayo Lopez RN - Reason: Contraindicated)204 (Given - Provider: Silke Haney RN) 1100 (Not Given - Provider: Adebayo Lopez [...] 24 hours. 1302 (Given - Provider: Pippa Uriarte, HEATHER) loperamide (IMODIUM) capsule 2 mg 2 mg, Oral, 4 TIMES DAILY PRN, Starting on 10/17/22 at 0055, Until Discontinued, Diarrhea, After each loose stool. 0133 (Given - Provider: Shasta Ryan)0816 (Given - Provider: Adebayo Lopez, RN)1501 (Given - Provider: Adebayo Lopez, HEATHER)2046 (Given [...] to tolerate oral tablet. K Lab Repla lawrenceen t Action 3.1 to 3.5 40 mEq [...] BE BASED ON THE PRIMARY CLINICAL RECORDS. [employer] [facility]. provides no warranty or guarantee of the accuracy or completeness of information in this document.
--- NOTE | 2024-09-09 12:23 | P.CN_ITS ---
Consult Note: HPI Data of Consult Patient: known to practice within the last 3 years Consult date: 09/09/24 Requesting Physician: Jadyn Wyman MD Primary Care Provider: KOMAL SCHAFFER Consult Narrative Reason for consult: low back, bilateral leg pain, left knee pain Narrative: 78yom who presents for assessment. notes worsening pain throughout low back into bilateral lower extremities. imaging reviewed, shows multilevel severe stenosis, particularly at l4-5. has been engaged in physical therapy and provider directed home exercises >6 weeks, without significant benefit. was recently at group home and given percocet 5mg qday, which helped. denies adverse med side effects. cc:: CC: Jadyn Wyman MD Review of Systems ROS Status of ROS 10 or more systems reviewed and unremark able except as noted in history and [facility] History Myasthenia gravis ?G70.00 - Myasthenia gravis without (acute) exacerbation (ICD-10) CKD (chronic kidney disease) stage 3, GFR 30-59 ml/min ?N18.30 - Chronic kidney disease, stage 3 unspecified (ICD-10) History of pulmonary embolism ?Z86.711 - Personal history of pulmonary embolism (ICD-10) Hypertension ?I10 - Essential (primary) hypertension (ICD-10) Bladder cancer ?C67.9 - Malignant neoplasm of bladder, unspecified (ICD-10) Pulmonary embolism ?I26.99 - Other pulmonary embolism without acute cor pulmonale (ICD-10) Surgical History Previous back surgery ?Z98.890 - Other specified postprocedural states (ICD-10) History of appendectomy ?Z90.49 - Acquired absence of other specified parts of digestive tract (ICD- 10) Family History Mother Family history of cancer Grandmother Family history of diabetes mellitus Father Family history of myocardial infarction Social History Within the past year, how often did you have a drink containing alcohol: mon thly or less Within the past year, how many standard drinks containing alcohol did you have on a typical day: 1 or 2 Within the past year, how often did you have six or more drinks on one occasion: never Total score: 0 Score interpretation: A score less than 4 is consistent with normal alcohol consumption. 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 Known occupational exposures/hazards: No Highest level of school completed/degree received: high school graduate Are you now , , , , never or living with a partner: In a typical week, how many times do you talk on the telephone with family, friends, or neighbors: once per week How often do you get together with friends or relatives: once per week How often do you attend pentecostal or protestant services: never Do you belong to any clubs or organizations such as pentecostal groups unions, [employer] or athletic groups, or school groups: no Total score: 1 Score interpretation: A score of less than or equal to 1 indicates the most socially isolated. Little interest or pleasure in doing things: not at all Feeling down, depressed, or hopeless: not at all Feel stressed/tense/nervous/anxious/difficulty sleeping: not at all Due to disability, difficulty making decisions: No Do you think of yourself as: straight/heterosexual Gender Identity: male Meds Home Medications and Allergies Home Medications ?Medication ?Instructions ?Recorded ?Confirmed ?Type apixaban 5 mg tablet (Eliquis) 5 mg PO Q12H 05/09/23 06/10/24 History furosemide 20 mg tablet 20 mg PO DAILY 05/09/23 06/10/24 History loratadine 10 mg tablet (Claritin) 10 mg PO DAILY 05/09/23 06/10/24 History multivitamin 1 tab PO DAILY 05/09/23 06/10/24 History nebivolol 10 mg tablet 10 mg PO DAILY 05/09/23 06/10/24 History omega-3 fatty acids 1,200 mg PO BID 05/09/23 06/10/24 History potassium chloride 10 mEq 10 meq PO DAILY 05/09/23 06/10/24 History tablet,extended release(part/cryst) prednisone 10 mg tablet 15 mg PO DAILY 05/09/23 09/09/24 History pyridostigmine bromide 60 mg tablet 60 mg PO Q6H 05/09/23 06/10/24 History simvastatin 40 mg tablet 40 mg PO DAILY 05/09/23 06/10/24 History gabapentin 300 mg capsule 300 mg PO Q12H 12/18/23 09/09/24 History naloxone 4 mg/actuation nasal 1 spray intranasal Q2M PRN opioid 12/28/23 06/10/24 Rx spray (Narcan) overdose #2 ea ascorbic acid (vitamin C) 1,000 mg 1 g PO DAILY 09/09/24 09/09/24 History tablet (Vitamin C) clotrimazole 1 % topical cream 1 applic topical BID 09/09/24 09/09/24 History lidocaine 4 % topical patch 1 patch topical DAILY PRN pain 09/09/24 09/09/24 History (Lidocare) nystatin 100,000 unit/gram topical topical 09/09/24 History powder oxycodone-acetaminophen 5 mg-325 1 tab PO BID PRN pain 09/09/24 09/09/24 History mg tablet (Percocet) oxycodone-acetaminophen 5 mg-325 1 tab PO BID PRN pain #60 tabs 09/09/24 Rx mg tablet (Percocet) spironolactone 25 mg tablet mg 09/09/24 History Allergies Allergy/AdvReac Type Severity Reaction Status Date / Time No Known Drug Allergies Allergy Verified 06/10/24 10:17 Exam Narrative Exam Narrative: Psych-alert and oriented x 3. Attentive and appropriate, constitutionally normal, displays normal mood and affect per situation. There are no obvious deficits in memory, reasoning, or intellect.? Skin-no obvious rashes, bruising, erythema noted to the patient's area of pain.? Extremities- extremities are warm with minimal edema and palpable pulses. Lumbar-tenderness to palpation noted in the lumbar spine and paraspinal musculature. Pain is elicited with flexion, extension, and lateral rotation of t he lumbar spine. Range of motion is diminished with these motions. Facet loading maneuvers are positive.? Strength-noted to be unremarkable with the exception of decreased strength rated at 4 out of 5 in bilateral quadriceps femoris, anterior tibialis. Sensory-no notable sensory deficits in the bilateral lower extremities to touch or pinprick in all dermatomal distributions with the exception to decreased sensation to the bilateral L4, 5 dermatomal distribution Coordination remains intact.? Gait remains non-antalgic Assessment and Plan Assessment and Plan (1) Lumbar stenosis with neurogenic claudication: (2) Sacroiliitis: (3) Left knee pain: Qualifiers: Chronicity: chronic Qualified Code(s): M25.562 - Pain in left knee; G89.29 - Other chronic pain Plan 78yom who presents for assessment. failed conservative measures, as noted. imaging reviewed, as noted. given symptoms and imaging, prudent to attempt bilateral l4-5 tfesi under fluoroscopic guidance. may even benefit from bilateral sij injection. he is in agreement. also discussed that he may benefit from left knee injection if pain persists. meds reviewed, uds obtained. will trial percocet 5mg bid prn. follow up after procedure.
== END 2024-09-09 10:49 | disposition home or self-care (01) ==
PROVIDERS: PCP Internal Medicine; Visit Provider Anesthesiology
DX: M48.062 Spinal stenosis, lumbar region with neurogenic claudication (principal); M46.1 Sacroiliitis, not elsewhere classified; M25.562 Pain in left knee; G89.29 Other chronic pain
CPT/HCPCS: G0463

== ENCOUNTER 2024-09-16 08:46 | Day surgery (SDC) | payer MEDICARE, SELFPAY ==
[2024-09-16 09:13] VITALS: BP 141/63; PULSE 78; TEMP 36.7; O2SAT 93
[2024-09-16 09:41] VITALS: BP 145/66; PULSE 50; O2SAT 95
[2024-09-16 09:42] VITALS: BP 162/62; PULSE 76; O2SAT 97
[2024-09-16] MEDS: BUPIVACAINE HCL 0.25% PF 25 MG/10 ML VIAL INJ (09:47)
[2024-09-16] MEDS: IOHEXOL 240 MG/ML - 10 ML VIAL 24 MG INJ (09:47)
[2024-09-16] MEDS: LIDOCAINE HCL 2% 400 MG/20 ML MDV INJ (09:47)
[2024-09-16] MEDS: 0.9 % SODIUM CHLORIDE 10 ML SYRINGE - SALINE FLUSH INJ (09:47)
[2024-09-16] MEDS: METHYLPREDNISOLONE ACETATE 80 MG/ML VIAL INJ (09:47)
--- NOTE | 2024-09-16 09:49 | W.PM.PROCNOT ---
Date of procedure: 09/16/24 Pre-op diagnosis: Pain due to lumbar stenosis with neurogenic claudication Post-op diagnosis: same as pre-op Procedure: Procedure: Bilateral L4-5 transforaminal epidural steroid injection Medications: Bupivacaine 0.25% 2cc, lidocaine 2% 1cc, depomedrol 80mg The patient was seen and examined in the preoperative holding area.? Informed consent was obtained and placed on the chart.? Patient was brought to the medical procedure unit and placed in the prone position where a timeout was completed verifying the correct patient, procedure site, position, and planned special equipment using sterile aseptic technique.? Under direct fluoroscopic visualization a 25-gauge Quincke tipped spinal needle was advanced at level left L4-5 to the designated neural foramen where contrast dye was injected to show adequate spread.? There was no evidence of vascular or adverse uptake.? Epidural spread was appreciated.? The above-mentioned injectate was then placed in a 1.5 mL aliquot preceded by negative aspiration.? The needle was removed. The same procedure, at the same level, was completed on the opposite side. ? Patient was taken to the postprocedural recovery area and monitored for an appropriate length of time before found suitable for discharge in the accompaniment of a responsible adult. Anesthesia: Local Surgeon: Jadyn Wyman Pathology: none sent Condition: stable Disposition: no change
== END 2024-09-16 09:52 | disposition home or self-care (01) ==
LOC: SURGOUT 08:47
PROVIDERS: PCP Internal Medicine; Visit Provider Anesthesiology
DX: M48.062 Spinal stenosis, lumbar region with neurogenic claudication (principal)
CPT/HCPCS: 64483; J0665; J1010; Q9966

== ENCOUNTER 2024-09-25 13:39 | Outpatient (OUT) | payer MEDICARE, SELFPAY ==
--- NOTE | 2024-09-25 14:11 | PM.CN ---
Consult Note: HPI Data of Consult Patient: known to practice within the last 3 years Requesting Physician: Kimberly Wright NP Primary Care Provider: KOMAL SCHAFFER Consult Narrative Reason for consult: f/u Narrative: Ankur Reilly a 79 year old male presents for evaluation and management of chronic low back pain secondary to lumbar stenosis, lumbar DDD, lumbar spondylosis and chronic bilateral SIJ pain. Pain today 4/10 in low back and SIJ joints, aching. increased pain in the morning, as well as with standing and walking. Pain improved with sitting. Currently utilizing tylenol PRN, gabapentin, lidocaine patches, and percocet 5-325mg BID PRN with moderate relief without side effects. denies falls. has failed >6 weeks of PT/HEP. recent bilateral L4-5 TFESI providing >50% improvement in lumbar stenosis with NC symptoms. MEGAN 32% cc:: CC: Kimberly Wright NP Review of Systems ROS Status of ROS 10 or more systems reviewed and unremarkable except as noted in history and below Musculoskeletal Reports: back pain and joint pain PFSH PFSH Medical History Myasthenia gravis ?G70.00 - Myasthenia gravis without (acute) exacerbation (ICD-10) CKD (chronic kidney disease) stage 3, GFR 30-59 ml/min ?N18.30 - Chronic kidney disease, stage 3 unspecified (ICD-10) History of pulmonary embolism ?Z86.711 - Personal history of pulmonary embolism (ICD-10) Hypertension ?I10 - Essential (primary) hypertension (ICD-10) Bladder cancer ?C67.9 - Malignant neoplasm of bladder, unspecified (ICD-10) Pulmonary embolism ?I26.99 - Other pulmonary embolism without acute cor pulmonale (ICD-10) Surgical History Previous back surgery ?Z98.890 - Other specified postprocedural states (ICD-10) History of appendectomy ?Z90.49 - Acquired absence of other specified parts of digestive tract (ICD-10) Family History Mother Family history of cancer Grandmother Family history of diabetes mellitus Father Family history of myocardial infarction Social History Within the past year, how often did you have a drink containing alcohol: monthly or less Within the past year, how many standard drinks containing alcohol did you have on a typical day: 1 or 2 Within the past year, how often did you have six or more drinks on one occasion: never Total score: 0 Score interpretation: A score less than 4 is consistent with normal alcohol consumption. 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 Known occupational exposures/hazards: No Highest level of school completed/degree received: high school graduate Are you now , , , , never or living with a partner: In a typical week, how many times do you talk on the telephone with family, friends, or neighbors: once per week How often do you get together with friends or relatives: once per week How often do you attend confucianism or caodaism services: never Do you belong to any clubs or organizations such as confucianism groups unions, [employer] or athletic groups, or school groups: no Total score: 1 Score interpretation: A score of less than or equal to 1 indicates the most socially isolated. Little interest or pleasure in doing things: not at all Feeling down, depressed, or hopeless: not at all Feel stressed/tense/nervous/anxious/difficulty sleeping: not at all Due to disability, difficulty making decisions: No Do you think of yourself as: straight/heterosexual Gender Identity: male Meds Home Medications and Allergies Home Medications ?Medication ?Instructions ?Recorded ?Confirmed ?Type apixaban 5 mg tablet (Eliquis) 5 mg PO Q12H 05/09/23 09/16/24 History furosemide 20 mg tablet 20 mg PO DAILY 05/09/23 09/16/24 History loratadine 10 mg tablet (Claritin) 10 mg PO DAILY 05/09/23 09/16/24 History multivitamin 1 tab PO DAILY 05/09/23 09/16/24 History nebivolol 10 mg tablet 10 mg PO DAILY 05/09/23 09/16/24 History omega-3 fatty acids 1,200 mg PO BID 05/09/23 09/16/24 History potassium chloride 10 mEq 10 meq PO DAILY 05/09/23 09/16/24 History tablet,extended release(part/cryst) prednisone 10 mg tablet 15 mg PO DAILY 05/09/23 09/16/24 History pyridostigmine bromide 60 mg tablet 60 mg PO Q6H 05/09/23 09/16/24 History simvastatin 40 mg tablet 40 mg PO DAILY 05/09/23 09/16/24 History gabapentin 300 mg capsule 300 mg PO Q12H 12/18/23 09/16/24 History naloxone 4 mg/actuation nasal 1 spray intranasal Q2M PRN opioid 12/28/23 09/16/24 Rx spray (Narcan) overdose #2 ea ascorbic acid (vitamin C) 1,000 mg 1 g PO DAILY 09/09/24 09/16/24 History tablet (Vitamin C) clotrimazole 1 % topical cream 1 applic topical BID 09/09/24 09/16/24 History lidocaine 4 % topical patch 1 patch topical DAILY PRN pain 09/09/24 09/16/24 History (Lidocare) nystatin 100,000 unit/gram topical topical 09/09/24 History powder oxycodone-acetaminophen 5 mg-325 1 tab PO BID PRN pain 09/09/24 09/16/24 History mg tablet (Percocet) spironolactone 25 mg tablet mg 09/09/24 History Allergies Allergy/AdvReac Type Severity Reaction Status Date / Time No Known Drug Allergies Allergy Verified 09/16/24 09:17 Exam Constitutional Documenting provider has reviewed patient's vital signs: yes Common normals: no apparent distress, oriented x3, healthy appearing, alert and well nourished General appearance: cooperative [facility] Common normals: normocephalic, hearing grossly normal bilaterally and moist oral mucous membranes Head and scalp: normocephalic Eye Common normals: PERRL Pupil: PERRL Neck & C-Spine Common normals: full ROM General: normal visual inspection Chest Common normals: inspection of chest normal Respiratory Common normals: normal respiratory effort, no retractions and no use of accessory muscles Back & Pelvis Lumbar spine/lower back: ROM limited, pain with ROM and straight leg raise negative bilaterally Sacroiliac joints: SI joint(s) abnormal Other: bilateral sij positive jorge(patricks), gaenslens, thigh thrust, compression test strength 5/5 in BLE sensation intact Neuro Common normals: oriented x3, CN's II-XII intact bilaterally, moves all extremities, no focal motor deficits, no sensory deficits noted and deep tendon reflexes 2+ bilaterally Sensorium/orientation: alert Gait (neuro): assistive device used walker Motor exam: strength 5/5 throughout and no movement abnormalities noted Psych Common normals: mental status grossly normal, thought process normal, cooperative, affect normal, speech normal and activity/motor behavior normal Speech: normal speech Thought process: normal thought process Results Additional Findings Additional findings: If on a controlled substance or opioids, I have checked an [place] report on this patient and there are no aberrancies noted in the prescribing history.??If on a controlled substance or opioid a drug screen was completed and reviewed within the last year, and if there has not been a drug screen completed we ordered one today to monitor higher risk, state monitored pain medication use. As part of providing excellent, safe, comprehensive care, the following was completed at our patient's visit: 1. A medication reconciliation and review to ensure accurate knowledge of current/active medications, including asking our patients to inform us about any [id number] medications or herbal remedies/nutritional supplements/alternative remedies. 2. A review to specifically ensure our patients have had annual screening for screening for depression, screening for tobacco use, and screening for unhealthy alcohol use. For concerning screenings had a discussion with the patient, provided patient education, and recommended follow-up with primary care provider when appropriate. If patient noted with a risk of falling, they received education on strength, gait, and balance training to prevent future risk of falling. Portions of this note may have been carried over from the previous visit and updated as appropriate. Please note this office utilizes paper charting in addition to the electronic medical record. A list of current medications, vitals, and PMH is available there as the clinical staff outside of myself do not have access to [employer] charting during the clinic day operations. As part of providing quality comprehensive care the current medications, vitals, and PMH were reviewed in the paper chart. Assessment and Plan Assessment and Plan (1) Lumbar stenosis with neurogenic claudication: (2) Sacroiliitis: (3) Chronic prescription opiate use: Plan bilateral SIJ injection under fluoroscopy decrease percocet 5-325mg once-twice daily as needed moderate to severe pain, risks vs benefits reviewed. sparingly utilizing continue HEP as tolerated f/u after injection
== END 2024-09-25 13:40 | disposition home or self-care (01) ==
LOC: PM 13:39
PROVIDERS: PCP Internal Medicine; Visit Provider Nurse Practitioner
DX: M48.062 Spinal stenosis, lumbar region with neurogenic claudication (principal); M46.1 Sacroiliitis, not elsewhere classified; Z79.891 Long term (current) use of opiate analgesic
CPT/HCPCS: G0463

== ENCOUNTER 2024-10-07 09:28 | Day surgery (SDC) | payer MEDICARE, SELFPAY ==
[2024-10-07 09:58] VITALS: BP 172/70; PULSE 80; TEMP 36.2; O2SAT 94
[2024-10-07 10:29] VITALS: BP 143/71; PULSE 80; O2SAT 92
[2024-10-07 10:31] VITALS: BP 190/85; PULSE 82; O2SAT 93
[2024-10-07] MEDS: BUPIVACAINE HCL 0.25% PF 25 MG/10 ML VIAL 4 ML INJ (10:33)
[2024-10-07] MEDS: IOHEXOL 240 MG/ML - 10 ML VIAL 12 MG INJ (10:33)
[2024-10-07] MEDS: LIDOCAINE HCL 2% 400 MG/20 ML MDV INJ (10:33)
--- NOTE | 2024-10-07 10:33 | W.PM.PROCNOT ---
Date of procedure: 10/07/24 Pre-op diagnosis: Pain due to bilateral sacroiliitis Post-op diagnosis: same as pre-op Procedure: Procedure: Bilateral sacroiliac joint injection Medications: Bupivacaine 0.25% 3cc, depomedrol 40mg x2 After informed consent was obtained, the patient was brought to the medical procedure unit and placed in the prone position, when a timeout was completed verifying correct patient, procedure, site, positioning, implant, and/or special equipment.? The skin overlying the area was prepped and draped in standard sterile fashion using alcohol.? A 25-gauge needle was inserted towards the left sacroiliac joint under direct fluoroscopic imaging.? Needle tip was advanced until the joint was encountered.? We instilled a total of 2 mL of solution.? The same procedure was then completed on the right side.? Postoperatively needles were removed.? The patient tolerated the procedure well without complication.? The patient reported reduction in pain symptoms postoperatively. Anesthesia: Local Surgeon: Jadyn Wyman Pathology: none sent Condition: stable Disposition: no change
[2024-10-07] MEDS: METHYLPREDNISOLONE ACETATE 40 MG/ML VIAL 80 MG INJ (10:34)
== END 2024-10-07 10:37 | disposition home or self-care (01) ==
PROVIDERS: PCP Internal Medicine; Visit Provider Anesthesiology
DX: M46.1 Sacroiliitis, not elsewhere classified (principal)
CPT/HCPCS: 27096; J0665; J1010; Q9966

== ENCOUNTER 2024-10-21 12:39 | Outpatient (OUT) | payer MEDICARE, SELFPAY ==
--- NOTE | 2024-10-21 13:34 | P.CN_ITS ---
Consult Note: HPI Data of Consult Patient: known to practice within the last 3 years Consult date: 10/21/24 Requesting Physician: Jadyn Wyman MD Primary Care Provider: KOMAL SCHAFFER Consult Narrative Reason for consult: bilateral knee pain Narrative: 79yom who presents for assessment. notes significant relief after recent lumbar tfesi and sij injection. now primarily has bilateral knee pain. no recent imaging. denies adverse med side effects. cc:: CC: Jadyn Wyman MD Review of Systems ROS Status of ROS 10 or more systems reviewed and unremark able except as noted in history and below [facility] Medical History Myasthenia gravis ?G70.00 - Myasthenia gravis without (acute) exacerbation (ICD-10) CKD (chronic kidney disease) stage 3, GFR 30-59 ml/min ?N18.30 - Chronic kidney disease, stage 3 unspecified (ICD-10) History of pulmonary embolism ?Z86.711 - Personal history of pulmonary embolism (ICD-10) Hypertension ?I10 - Essential (primary) hypertension (ICD-10) Bladder cancer ?C67.9 - Malignant neoplasm of bladder, unspecified (ICD-10) Pulmonary embolism ?I26.99 - Other pulmonary embolism without acute cor pulmonale (ICD-10) Surgical History Previous back surgery ?Z98.890 - Other specified postprocedural states (ICD-10) History of appendectomy ?Z90.49 - Acquired absence of other specified parts of digestive tract (ICD- 10) Family History Mother Family history of cancer Grandmother Family history of diabetes mellitus Father Family history of myocardial infarction Social History Within the past year, how often did you have a drink containing alcohol: monthly or less Within the past year, how many standard drinks containing alcohol did you have on a typical day: 1 or 2 Within the past year, how often did you have six or more drinks on one occasion: never Total score: 0 Score interpretation: A score less than 4 is consistent with normal alcohol consumption. 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 Known occupational exposures/hazards: No Highest level of school completed/degree received: high school graduate Are you now , , , , never or living with a partner: In a typical week, how many times do you talk on the telephone with family, friends, or neighbors: once per week How often do you get together with friends or relatives: once per week How often do you attend hoahaoism or episcopalian services: never Do you belong to any clubs or organizations such as hoahaoism groups unions, [employer] or athletic groups, or school groups: no Total score: 1 Score interpretation: A score of less than or equal to 1 indicates the most socially isolated. Little interest or pleasure in doing things: not at all Feeling down, depressed, or hopeless: not at all Feel stressed/tense/nervous/anxious/difficulty sleeping: not at all Due to disability, difficulty making decisions: No Do you think of yourself as: straight/heterosexual Gender Identity: male Meds Home Medications and Allergies Home Medications ?Medication ?Instructions ?Recorded ?Confirmed ?Type apixaban 5 mg tablet (Eliquis) 5 mg PO Q12H 05/09/23 10/07/24 History furosemide 20 mg tablet 20 mg PO DAILY 05/09/23 10/07/24 History loratadine 10 mg tablet (Claritin) 10 mg PO DAILY 05/09/23 10/07/24 History multivitamin 1 tab PO DAILY 05/09/23 10/07/24 History nebivolol 10 mg tablet 10 mg PO DAILY 05/09/23 10/07/24 History omega-3 fatty acids 1,200 mg PO BID 05/09/23 10/07/24 History potassium chloride 10 mEq 10 meq PO DAILY 05/09/23 10/07/24 History tablet,extended release(part/cryst) prednisone 10 mg tablet 15 mg PO DAILY 05/09/23 10/07/24 History pyridostigmine bromide 60 mg tablet 60 mg PO Q6H 05/09/23 10/07/24 History simvastatin 40 mg tablet 40 mg PO DAILY 05/09/23 10/07/24 History gabapentin 300 mg capsule 300 mg PO Q12H 12/18/23 10/07/24 History naloxone 4 mg/actuation nasal 1 spray intranasal Q2M PRN opioid 12/28/23 10/07/24 Rx spray (Narcan) overdose #2 ea ascorbic acid (vitamin C) 1,000 mg 1 g PO DAILY 09/09/24 10/07/24 History tablet (Vitamin C) clotrimazole 1 % topical cream 1 applic topical BID 09/09/24 10/07/24 History lidocaine 4 % topical patch 1 patch topical DAILY PRN pain 09/09/24 10/07/24 History (Lidocare) nystatin 100,000 unit/gram topical topical 09/09/24 History powder oxycodone-acetaminophen 5 mg-325 1 tab PO BID PRN pain 09/09/24 10/07/24 History mg tablet (Percocet) spironolactone 25 mg tablet mg 09/09/24 History Allergies Allergy/AdvReac Type Severity Reaction Status Date / Time No Known Drug Allergies Allergy Verified 09/16/24 09:17 Exam Narrative Exam Narrative: Psych-alert and oriented x 3.? Attentive and appropriate, constitutionally normal, displays normal mood and affect per situation.? There are no obvious deficits in memory, reasoning, or intellect. Extremities-lower extremities are warm with minimal edema and palpable pulses. Knee-examination of the bilateral knee reveals tenderness to palpation over the superior, inferior, lateral, and medial aspect of the knee. Some swelling is noted without erythema. Pain is elicited with flexion and extension of the knee both actively and passively.? Some grinding is noted with these motions.? There is no notable ligamental laxity or instability.? Coordination remains intact.? Gait remains antalgic. Assessment and Plan Assessment and Plan (1) Bilateral knee pain: Qualifiers: Chronicity: chronic Qualified Code(s): M25.561 - Pain in right knee; M25.562 - Pain in left knee; G89.29 - Other chronic pain Plan 79yom who presents for assessment. notes good relief after recent lumbar tfesi and sij injections. in terms of bilateral knee pain, will order bilateral knee xr and bilateral knee injections. he is in agreement. meds reviewed, no changes. follow up after imaging and procedure.
== END 2024-10-21 12:40 | disposition home or self-care (01) ==
LOC: PM 12:39
PROVIDERS: PCP Internal Medicine; Visit Provider Anesthesiology
DX: M25.561 Pain in right knee (principal); M25.562 Pain in left knee; G89.29 Other chronic pain
CPT/HCPCS: G0463

== ENCOUNTER 2024-10-22 11:18 | Outpatient (OUT) | payer MEDICARE, SELFPAY ==
--- NOTE | 2024-10-22 11:26 | XR_ITS ---
[facility] [place] [id number] Patient Name: TAURUS GARCIA MRN: [id number] date: 1945 Sex: M Assigned Patient Location: [facility] Current Patient Location: [facility] Accession/Order Number: [id number] Exam Date: 10/22/2024 15:22 Report Date: 10/22/2024 15:26 At the request of: FRANCE GUSMAN MD Procedure: XR knee ARCHIE 4V BILATERAL KNEES - 4 views each CLINICAL DATA: Acute bilateral knee pain and left knee instability. No injury. COMPARISON: Left knee 02/26/2024 AP, lateral and both oblique views were obtained. No acute fractures or dislocation are noted. There is mild narrowing at the medial tibiofemoral joint compartment on the right and subchondral sclerosis at the tibial plateau. No disproportionate joint space narrowing is seen on the left. There is minor marginal spurring. Small enthesophytes are present at the insertion of quadriceps tendon bilaterally. There is a trace amount joint fluid on the left. There is atherosclerotic disease at the popliteal fossa. XR/XR knee ARCHIE 4V IMPRESSION: MILD DEGENERATIVE CHANGE, GREATER ON THE RIGHT. NO ACUTE BONY FINDINGS. Impression dictated by: Aide Moe M.D.10/22/2024 3:26 PM Dictation Location: [place] [address] Electronically authenticated by: [id number] Y Date: 10/22/2024 15:26
== END 2024-10-22 11:19 | disposition home or self-care (01) ==
LOC: RAD 11:19
PROVIDERS: PCP Internal Medicine; Visit Provider Anesthesiology
DX: M25.561 Pain in right knee (principal); M25.562 Pain in left knee
CPT/HCPCS: 73564

== ENCOUNTER 2024-10-28 14:32 | Outpatient (OUT) | payer MEDICARE, SELFPAY ==
--- NOTE | 2024-10-28 15:42 | P.CN_ITS ---
Consult Note: HPI Data of Consult Patient: known to practice within the last 3 years Consult date: 10/28/24 Requesting Physician: Jadyn Wyman MD Primary Care Provider: KOMAL SCHAFFER Consult Narrative Reason for consult: bilateral knee pain Narrative: 79yom who presents for in office injection. continues to have bilateral knee pain. cc:: CC: Jadyn Wyman MD Review of Systems ROS Status of ROS 10 or more systems reviewed and unremark able except as noted in history and below PFSH PFSH Medical History Myasthenia gravis ?G70.00 - Myasthenia gravis without (acute) exacerbation (ICD-10) CKD (chronic kidney disease) stage 3, GFR 30-59 ml/min ?N18.30 - Chronic kidney disease, stage 3 unspecified (ICD-10) History of pulmonary embolism ?Z86.711 - Personal history of pulmonary embolism (ICD-10) Hypertension ?I10 - Essential (primary) hypertension (ICD-10) Bladder cancer ?C67.9 - Malignant neoplasm of bladder, unspecified (ICD-10) Pulmonary embolism ?I26.99 - Other pulmonary embolism without acute cor pulmonale (ICD-10) Surgical History Previous back surgery ?Z98.890 - Other specified postprocedural states (ICD-10) History of appendectomy ?Z90.49 - Acquired absence of other specified parts of digestive tract (ICD- 10) Family History Mother Family history of cancer Grandmother Family history of diabetes mellitus Father Family history of myocardial infarction Social History Within the past year, how often did you have a drink containing alcohol: monthly or less Within the past year, how many standard drinks containing alcohol did you have on a typical day: 1 or 2 Within the past year, how often did you have six or more drinks on one occasion: never Total score: 0 Score interpretation: A score less than 4 is consistent with normal alcohol consumption. 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 groups, or school groups: no Total score: 1 Score interpretation: A score of less than or equal to 1 indicates the most socially isolated. Little interest or pleasure in doing things: not at all Feeling down, depressed, or hopeless: not at all Feel stressed/tense/nervous/anxious/difficulty sleeping: not at all Due to disability, difficulty making decisions: No Do you think of yourself as: straight/heterosexual Gender Identity: male Meds Home Medications and Allergies Home Medications ?Medication ?Instructions ?Recorded ?Confirmed ?Type apixaban 5 mg tablet (Eliquis) 5 mg PO Q12H 05/09/23 10/07/24 History furosemide 20 mg tablet 20 mg PO DAILY 05/09/23 10/07/24 History loratadine 10 mg tablet (Claritin) 10 mg PO DAILY 05/09/23 10/07/24 History multivitamin 1 tab PO DAILY 05/09/23 10/07/24 History nebivolol 10 mg tablet 10 mg PO DAILY 05/09/23 10/07/24 History omega-3 fatty acids 1,200 mg PO BID 05/09/23 10/07/24 History potassium chloride 10 mEq 10 meq PO DAILY 05/09/23 10/07/24 History tablet,extended release(part/cryst) prednisone 10 mg tablet 15 mg PO DAILY 05/09/23 10/07/24 History pyridostigmine bromide 60 mg tablet 60 mg PO Q6H 05/09/23 10/07/24 History simvastatin 40 mg tablet 40 mg PO DAILY 05/09/23 10/07/24 History gabapentin 300 mg capsule 300 mg PO Q12H 12/18/23 10/07/24 History naloxone 4 mg/actuation nasal 1 spray intranasal Q2M PRN opioid 12/28/23 10/07/24 Rx spray (Narcan) overdose #2 ea ascorbic acid (vitamin C) 1,000 mg 1 g PO DAILY 09/09/24 10/07/24 History tablet (Vitamin C) clotrimazole 1 % topical cream 1 applic topical BID 09/09/24 10/07/24 History lidocaine 4 % topical patch 1 patch topical DAILY PRN pain 09/09/24 10/07/24 History (Lidocare) nystatin 100,000 unit/gram topical topical 09/09/24 History powder oxycodone-acetaminophen 5 mg-325 1 tab PO BID PRN pain 09/09/24 10/07/24 History mg tablet (Percocet) spironolactone 25 mg tablet mg 09/09/24 History Allergies Allergy/AdvReac Type Severity Reaction Status Date / Time No Known Drug Allergies Allergy Verified 09/16/24 09:17 Exam Narrative Exam Narrative: Psych-alert and oriented x 3.? Attentive and appropriate, constitutionally normal, displays normal mood and affect per situation.? There are no obvious deficits in memory, reasoning, or intellect. Extremities-lower extremities are warm with minimal edema and palpable pulses. Knee-examination of the bilateral knee reveals tenderness to palpation over the superior, inferior, lateral, and medial aspect of the knee.? Some swelling is noted without erythema. Pain is elicited with flexion and extension of the knee both actively and passively.? Some grinding is noted with these motions.? There is no notable ligamental laxity or instability.? Coordination remains intact.? Gait remains antalgic. Assessment and Plan Assessment and Plan (1) Bilateral knee pain: Qualifiers: Chronicity: chronic Qualified Code(s): M25.561 - Pain in right knee; M25.562 - Pain in left knee; G89.29 - Other chronic pain Plan 79yom who presents for in office injection. continues to have bilateral knee pain, would like to proceed with injection. Procedure: Bilateral knee injection Medications: Bupivacaine 0.25% 4cc, depomedrol 40mg x2 I explained the details of the procedure to the patient including the risks, benefits and alternatives. We had an informed discussion and the patient verbalized understanding and signed the consent form. All questions were answered appropriately.? A time out was performed.? After obtaining a comfortable seated position, the right knee was prepped with alcohol x3. A syringe containing the above medicatio n was attached to a 25 gauge, 1.5 inch needle under strict aseptic technique. The lateral tibial plateau was palpated.? The needle was then advanced through the subcutaneous tissue in a medial and superior direction towards the joint space.? The contents of the syringe were gently injected without any resistance. The needle was removed and pressure was applied to the injection site to decrease the incidence of ecchymosis and hematoma formation.? A sterile bandage was applied. The same procedure was then completed on the opposite side.
== END 2024-10-28 14:33 | disposition home or self-care (01) ==
LOC: PM 14:33
PROVIDERS: PCP Internal Medicine; Visit Provider Anesthesiology
DX: M25.561 Pain in right knee (principal); M25.562 Pain in left knee; G89.29 Other chronic pain
CPT/HCPCS: 20610; J0665; J1010

== ENCOUNTER 2024-11-27 11:13 | Emergency (ER) | payer MEDICARE, SELFPAY ==
[2024-11-27 11:17] VITALS: BP 156/77; PULSE 85; TEMP 36.6; O2SAT 95; BMI 47.0
--- NOTE | 2024-11-27 11:33 | ED_ITS ---
HPI HPI - General Adult General Chief complaint: Extremity Injury, Lower Stated complaint: FALL - LOWER EXTREMITY INJURY Time Seen by Provider: 11/27/24 11:16 Source: patient Mode of arrival: ambulance Limitations: no limitations History of Present Illness HPI narrative: Patient presents to ED after a fall. He said he was getting out of his kitchen chair and he fell forward. Patient does have a history of tremors and he said it is not out of the norm for him to be a little off balance. He denies hitting his head he denies any neck pain. No loss of consciousness. He did suffer a l aceration to the left big toe. He has a history of lumbar stenosis with some peripheral vascular issues as well as neuropathy. No history of diabetes. Patient states he has been feeling fine up until this fall he did not have any preceding symptoms. He has not been sick recently or weak. He is on Eliquis. Patient denies abdominal pain. He does complain of left knee pain. Related Data Home Medications ?Medication ?Instructions ?Recorded ?Confirmed apixaban 5 mg tablet (Eliquis) 5 mg PO Q12H 05/09/23 11/27/24 furosemide 20 mg tablet 40 mg PO DAILY 05/09/23 11/27/24 loratadine 10 mg tablet (Claritin) 10 mg PO DAILY 05/09/23 11/27/24 multivitamin 1 tab PO DAILY 05/09/23 11/27/24 nebivolol 10 mg tablet 10 mg PO DAILY 05/09/23 11/27/24 omega-3 fatty acids 1,200 mg PO BID 05/09/23 11/27/24 potassium chloride 10 mEq 20 meq PO DAILY 05/09/23 11/27/24 tablet,extended release(part/cryst) prednisone 10 mg tablet 15 mg PO DAILY 05/09/23 11/27/24 pyridostigmine bromide 60 mg tablet 60 mg PO Q6H 05/09/23 11/27/24 simvastatin 40 mg tablet 40 mg PO DAILY 05/09/23 11/27/24 gabapentin 300 mg capsule 300 mg PO Q12H 12/18/23 11/27/24 ascorbic acid (vitamin C) 1,000 mg 1 g PO DAILY 09/09/24 11/27/24 tablet (Vitamin C) clotrimazole 1 % topical cream 1 applic topical BID 09/09/24 11/27/24 oxycodone-acetaminophen 5 mg-325 1 tab PO DAILY PRN pain 09/09/24 11/27/24 mg tablet (Percocet) spironolactone 25 mg tablet 25 mg PO DAILY 09/09/24 11/27/24 Previous Rx's ?Medication ?Instructions ?Recorded naloxone 4 mg/actuation nasal 1 spray intranasal Q2M PRN opioid 12/28/23 spray (Narcan) overdose #2 ea Allergies Allergy/AdvReac Type Severity Reaction Status Date / Time No Known Drug Allergies Allergy Verified 11/27/24 11:16 Opioid HPI Opioid Management Most Recent Opioid Data: Last Pain Scale 4 10/07/24 09:58 10/07/24 Review of Systems ROS Status of ROS 10 or more systems reviewed and unremark able except as noted in history and below [facility] Medical History Myasthenia gravis ?G70.00 - Myasthenia gravis without (acute) exacerbation (ICD-10) CKD (chronic kidney disease) stage 3, GFR 30-59 ml/min ?N18.30 - Chronic kidney disease, stage 3 unspecified (ICD-10) History of pulmonary embolism ?Z86.711 - Personal history of pulmonary embolism (ICD-10) Hypertension ?I10 - Essential (primary) hypertension (ICD-10) Bladder cancer ?C67.9 - Malignant neoplasm of bladder, unspecified (ICD-10) Pulmonary embolism ?I26.99 - Other pulmonary embolism without acute cor pulmonale (ICD-10) Surgical History Previous back surgery ?Z98.890 - Other specified postprocedural states (ICD-10) History of appendectomy ?Z90.49 - Acquired absence of other specified parts of digestive tract (ICD- 10) Family History Mother Family history of cancer Grandmother Family history of diabetes mellitus Father Family history of myocardial infarction Social History Within the past year, how often did you have a drink containing alcohol: monthly or less Within the past year, how many standard drinks containing alcohol did you have on a typical day: 1 or 2 Within the past year, how often did you have six or more drinks on one occasion: never Total score: 0 Score interpretation: A score less than 4 is consistent with normal alcohol consumption. 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 Known occupational exposures/hazards: No Highest level of school completed/degree received: high school graduate Are you now , , , , never or living with a partner: In a typical week, how many times do you talk on the telephone with family, friends, or neighbors: once per week How often do you get together with friends or relatives: once per week How often do you attend spiritism or sabianist services: never Do you belong to any clubs or organizations such as spiritism groups unions, [employer] or athletic groups, or school groups: no Total score: 1 Score interpretation: A score of less than or equal to 1 indicates the most socially isolated. Little interest or pleasure in doing things: not at all Feeling down, depressed, or hopeless: not at all Feel stressed/tense/nervous/anxious/difficulty sleeping: not at all Due to disability, difficulty making decisions: No Do you think of yourself as: straight/heterosexual Gender Identity: male Exam Narrative Exam Narrative: Time Seen: [] Vital Signs: [Per nurse's notes.] General: [Alert] Skin: [Warm, dry, no rash.] Head: [Normocephalic, atraumatic.] Neck: [Supple, trachea midline.] Eye: [Pupils are equal, round and reactive to light, extraocular movements are intact, normal conjunctiva.] Ears, nose, mouth and throat: oral mucosa moist. Cardiovascular: [Regular rate and rhythm, no murmur.] Respiratory: [Lungs are clear to auscultation, respirations are non-labored, breath sounds are equal.] Chest wall: [No tenderness, no deformity.] Gastrointestinal: [Soft, nontender, non distended, normal bowel sounds.] MSK: 5 out of 5 muscle strength x 4 extremities no calf pain or edema. Pain with flexion at the left knee. Internal/external rotation at both hips are normal. Pelvis is intact. 2 cm laceration around the left great toe. Decreased range of motion in his toes but patient states that is chronic. He reports it is at baseline and he has normal sensation in his feet. Psychiatric: [Cooperative, appropriate mood & affect.] Neurological: [Alert and oriented to person, place, time, and situation, no focal neurological deficit observed.] Constitutional Vital Signs, click to edit/add: Last Vital Signs Temp 97.9 F 11/27/24 11:17 Pulse 85 11/27/24 11:17 Resp 18 11/27/24 11:17 BP 156/77 H 11/27/24 11:17 Pulse Ox 95 11/27/24 11:17 O2 Del Method Room Air 11/27/24 11:17 Course Vital Signs Vital signs: Vital Signs Temperature 97.9 F 11/27/24 11:17 Pulse Rate 85 11/27/24 11:17 Respiratory Rate 18 11/27/24 11:17 Blood Pressure 156/77 H 11/27/24 11:17 Pulse Oximetry 95 11/27/24 11:17 Oxygen Delivery Method Room Air 11/27/24 11:17 Temperature 97.9 F 11/27/24 11:17 Pulse Rate 85 11/27/24 11:17 Respiratory Rate 18 11/27/24 11:17 Blood Pressure 156/77 H 11/27/24 11:17 Pulse Oximetry 95 11/27/24 11:17 Oxygen Delivery Method Room Air 11/27/24 11:17 Medical Decision Making MDM Narrative Medical decision making narrative: The x-ray shows a fracture of the left great toe. This is an open fracture as the patient does have a laceration over this area. Wound was washed and repaired by TEMITOPE Rangel. Patient does have a call center manager that he sees, Dr. Og. I told him to call Dr. Og to have close follow-up to ensure that his toe will heal well. This is a high risk area for infection therefore he will be sent home on antibiotics. He was given his first dose here in ED. X-ray of the knee was normal showing no acute fracture. Patient states he is feeling fine other than his toe. He does use a walker at home. The toe was wrapped after repair. Patient instructed to use his walker at all times to help with stability since he does have the toe fracture. Return to ED if worsening symptoms otherwise follow-up with Dr. Og outpatient. Patient and are comfortable with care plan for home. Differential Diagnosis Differential Diagnosis: Fracture sprain strain fall Imaging Data Chest x-ray: Attestation: I have reviewed the pertinent imaging results. Discharge Plan Discharge Chief Complaint: Extremity Injury, Lower Clinical Impression: Fall, Laceration of toe, Fracture of toe of left foot Left knee pain Qualifiers: Chronicity: chronic Qualified Code(s): M25.562 - Pain in left knee Patient Disposition: Home, Self-Care Time of Disposition Decision: 14:00 Condition: Good Mode of Transportation: Private Vehicle Prescriptions / Home Meds: No Action Eliquis 5 mg tablet 5 mg PO Q12H pyridostigmine bromide 60 mg tablet 60 mg PO Q6H potassium chloride 10 mEq tablet,ER particles/crystals 20 meq PO DAILY nebivolol 10 mg tablet 10 mg PO DAILY prednisone 10 mg tablet 15 mg PO DAILY simvastatin 40 mg tablet 40 mg PO DAILY furosemide 20 mg tablet 40 mg PO DAILY omega-3 fatty acids Capsule 1,200 mg PO BID loratadine [Claritin] 10 mg tablet 10 mg PO DAILY multivitamin Tablet 1 tab PO DAILY naloxone [Narcan] 4 mg/actuation spray,non-aerosol 1 spray intranasal Q2M PRN (Reason: opioid overdose) Qty: 2 1RF Rx Instructions: spray 1 dose into ONE nostril; alternate nostrils w each dose until help arrives oxycodone-acetaminophen [Percocet] 5-325 mg tablet 1 tab PO DAILY PRN (Reason: pain) spironolactone 25 mg tablet 25 mg PO DAILY ascorbic acid (vitamin C) [Vitamin C] 1,000 mg tablet 1 g PO DAILY clotrimazole 1 % cream 1 applic topical BID gabapentin 300 mg capsule 300 mg PO Q12H Print Language: Wallisian Instructions: Laceration (ED), Knee Pain (ED) Referrals: KOMAL SCHAFFER [Primary Care Provider] - 1 week OPHELIA OG [Physician] - 1 week
[2024-11-27] MEDS: LIDOCAINE HCL 1% 100 MG/10 ML MDV INJ (13:23)
[2024-11-27] MEDS: BACITRACIN 0.9 GM PACKET 1 PACKET TOPICAL (13:30)
[2024-11-27] MEDS: CEPHALEXIN 500 MG CAPSULE PO (14:21)
[2024-11-27 14:50] VITALS: BP 156/66; PULSE 82; O2SAT 93
== END 2024-11-27 14:50 | disposition home or self-care (01) ==
PROVIDERS: Emergency Provider Emergency Medicine; PCP Internal Medicine
DX: S92.402B Displaced unspecified fracture of left great toe, initial encounter for open fracture (principal); W18.39XA Other fall on same level, initial encounter; M25.562 Pain in left knee; R25.1 Tremor, unspecified; M48.061 Spinal stenosis, lumbar region without neurogenic claudication; Z79.01 Long term (current) use of anticoagulants; Z90.49 Acquired absence of other specified parts of digestive tract; G62.9 Polyneuropathy, unspecified; G89.29 Other chronic pain
CPT/HCPCS: 12001; 73562; 73630; 99284

== ENCOUNTER 2024-12-19 15:04 | Outpatient (OUT) | payer MEDICARE, SELFPAY ==
--- NOTE | 2024-12-19 15:22 | PM.CN ---
Consult Note: HPI Data of Consult Patient: known to practice within the last 3 years Requesting Physician: Kimberly Wright NP Primary Care Provider: KOMAL SCHAFFER Consult Narrative Reason for consult: f/u Narrative: Ankur Reilly a pleasant 79 year old male presents for evaluation of chronic low back and BLE pain secondary to lumbar stenosis with NC, lumbar spondylosis, lumbar DDD, and sacroilitis. pt has failed to benefit from > 6 weeks of provider guided HEP/PT, heat, ice, tylenol, and is on eliquis so he cannot take NSAIDs. pain today 7/10 increasing to 10/10 with standing, walking, activity. utilizing gabapentin, percocet, lidocaine patches with mild relief at this time, denies side effects. cc:: CC: Kimberly Wright NP Review of Systems ROS Musculoskeletal Reports: back pain, extremity pain and joint pain PFSH PFSH Medical History Myasthenia gravis ?G70.00 - Myasthenia gravis without (acute) exacerbation (ICD-10) CKD (chronic kidney disease) stage 3, GFR 30-59 ml/min ?N18.30 - Chronic kidney disease, stage 3 unspecified (ICD-10) History of pulmonary embolism ?Z86.711 - Personal history of pulmonary embolism (ICD-10) Hypertension ?I10 - Essential (primary) hypertension (ICD-10) Bladder cancer ?C67.9 - Malignant neoplasm of bladder, unspecified (ICD-10) Pulmonary embolism ?I26.99 - Other pulmonary embolism without acute cor pulmonale (ICD-10) Surgical History Previous back surgery ?Z98.890 - Other specified postprocedural states (ICD-10) History of appendectomy ?Z90.49 - Acquired absence of other specified parts of digestive tract (ICD-10) Family History Mother Family history of cancer Grandmother Family history of diabetes mellitus Father Family history of myocardial infarction Social History Within the past year, how often did you have a drink containing alcohol: monthly or less Within the past year, how many standard drinks containing alcohol did you have on a typical day: 1 or 2 Within the past year, how often did you have six or more drinks on one occasion: never Total score: 0 Score interpretation: A score less than 4 is consistent with normal alcohol consumption. 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 Known occupational exposures/hazards: No Highest level of school completed/degree received: high school graduate Are you now , , , , never or living with a partner: In a typical week, how many times do you talk on the telephone with family, friends, or neighbors: once per week How often do you get together with friends or relatives: once per week How often do you attend zoroastrianism or congregation services: never Do you belong to any clubs or organizations such as zoroastrianism groups unions, [employer] or athletic groups, or school groups: no Total score: 1 Score interpretation: A score of less than or equal to 1 indicates the most socially isolated. Little interest or pleasure in doing things: not at all Feeling down, depressed, or hopeless: not at all Feel stressed/tense/nervous/anxious/difficulty sleeping: not at all Due to disability, difficulty making decisions: No Do you think of yourself as: straight/heterosexual Gender Identity: male Meds Home Medications and Allergies Home Medications ?Medication ?Instructions ?Recorded ?Confirmed ?Type apixaban 5 mg tablet (Eliquis) 5 mg PO Q12H 05/09/23 11/27/24 History furosemide 20 mg tablet 40 mg PO DAILY 05/09/23 11/27/24 History loratadine 10 mg tablet (Claritin) 10 mg PO DAILY 05/09/23 11/27/24 History multivitamin 1 tab PO DAILY 05/09/23 11/27/24 History nebivolol 10 mg tablet 10 mg PO DAILY 05/09/23 11/27/24 History omega-3 fatty acids 1,200 mg PO BID 05/09/23 11/27/24 History potassium chloride 10 mEq 20 meq PO DAILY 05/09/23 11/27/24 History tablet,extended release(part/cryst) prednisone 10 mg tablet 15 mg PO DAILY 05/09/23 11/27/24 History pyridostigmine bromide 60 mg tablet 60 mg PO Q6H 05/09/23 11/27/24 History simvastatin 40 mg tablet 40 mg PO DAILY 05/09/23 11/27/24 History gabapentin 300 mg capsule 300 mg PO Q12H 12/18/23 11/27/24 History naloxone 4 mg/actuation nasal 1 spray intranasal Q2M PRN opioid 12/28/23 11/27/24 Rx spray (Narcan) overdose #2 ea ascorbic acid (vitamin C) 1,000 mg 1 g PO DAILY 09/09/24 11/27/24 History tablet (Vitamin C) clotrimazole 1 % topical cream 1 applic topical BID 09/09/24 11/27/24 History oxycodone-acetaminophen 5 mg-325 1 tab PO DAILY PRN pain 09/09/24 11/27/24 History mg tablet (Percocet) spironolactone 25 mg tablet 25 mg PO DAILY 09/09/24 11/27/24 History cephalexin 500 mg capsule 500 mg PO BID 10 days #20 caps 11/27/24 Rx Allergies Allergy/AdvReac Type Severity Reaction Status Date / Time No Known Drug Allergies Allergy Verified 11/27/24 11:16 Exam Constitutional Documenting provider has reviewed patient's vital signs: yes Common normals: no apparent distress, oriented x3, healthy appearing, alert and well nourished General appearance: cooperative Nutritional appearance: obese HENMT Common normals: normocephalic, hearing grossly normal bilaterally and moist oral mucous membranes Head and scalp: normocephalic Eye Common normals: PERRL Pupil: PERRL Neck & C-Spine Common normals: full ROM General: normal visual inspection Chest Common normals: inspection of chest normal Respiratory Common normals: normal respiratory effort, no retractions and no use of accessory muscles Back & Pelvis Lumbar spine/lower back: ROM limited and pain with ROM Sacroiliac joints: SI joint(s) abnormal Other: bilateral sij positive jorge(patricks), gaenslens, thigh thrust, compression test strength 4/5 in BLE sensation decreased to bilateral l4,5 Neuro Common normals: oriented x3 Sensorium/orientation: alert Gait (neuro): assistive device used walker Motor exam: no movement abnormalities noted and strength abnormal Psych Common normals: mental status grossly normal, thought process normal, cooperative, affect normal, speech normal and activity/motor behavior normal Speech: normal speech Thought process: normal thought process Results Additional Findings Additional findings: If on a controlled substance or opioids, I have checked an [place] report on this patient and there are no aberrancies noted in the prescribing history.??If on a controlled substance or opioid a drug screen was completed and reviewed within the last year, and if there has not been a drug screen completed we ordered one today to monitor higher risk, state monitored pain medication use. As part of providing excellent, safe, comprehensive care, the following was completed at our patient's visit: 1. A medication reconciliation and review to ensure accurate knowledge of current/active medications, including asking our patients to inform us about any [id number] medications or herbal remedies/nutritional supplements/alternative remedies. 2. A review to specifically ensure our patients have had annual screening for screening for depression, screening for tobacco use, and screening for unhealthy alcohol use. For concerning screenings had a discussion with the patient, provided patient education, and recommended follow-up with primary care provider when appropriate. If patient noted with a risk of falling, they received education on strength, gait, and balance training to prevent future risk of falling. Portions of this note may have been carried over from the previous visit and updated as appropriate. Please note this office utilizes paper charting in addition to the electronic medical record. A list of current medications, vitals, and PMH is available there as the clinical staff outside of myself do not have access to [employer] charting during the clinic day operations. As part of providing quality comprehensive care the current medications, vitals, and PMH were reviewed in the paper chart. Assessment and Plan Assessment and Plan (1) Lumbar stenosis with neurogenic claudication: Assessment and Plan: MEGAN 58% with moderate to severe pain impacting sitting, standing, walking, sleep, social life, travel (2) Sacroiliitis: (3) Chronic prescription opiate use: Plan repeat bilateral L4-5 TFESI under fluoroscopy, previous injection provided >50% improvement greater than 3 months continue current medications, risks vs benefits reviewed continue PT and HEP as tolerated continue to utilize walker f/u 2 weeks after RICHARD
== END 2024-12-19 15:05 | disposition home or self-care (01) ==
LOC: PM 15:05
PROVIDERS: PCP Internal Medicine; Visit Provider Nurse Practitioner
DX: M48.062 Spinal stenosis, lumbar region with neurogenic claudication (principal); M46.1 Sacroiliitis, not elsewhere classified; Z79.891 Long term (current) use of opiate analgesic
CPT/HCPCS: G0463

== ENCOUNTER 2024-12-30 10:00 | Day surgery (SDC) | payer MEDICARE, SELFPAY ==
[2024-12-30 10:47] VITALS: BP 151/85; PULSE 76; TEMP 36.6; O2SAT 98
[2024-12-30 11:13] VITALS: BP 167/103; PULSE 87; O2SAT 93
[2024-12-30 11:15] VITALS: PULSE 88; O2SAT 95
[2024-12-30] MEDS: BUPIVACAINE HCL 0.25% PF 25 MG/10 ML VIAL INJ (11:18)
[2024-12-30] MEDS: 0.9 % SODIUM CHLORIDE 10 ML SYRINGE - SALINE FLUSH INJ (11:18)
[2024-12-30] MEDS: METHYLPREDNISOLONE ACETATE 80 MG/ML VIAL INJ (11:19)
[2024-12-30] MEDS: LIDOCAINE HCL 2% 400 MG/20 ML MDV 3 ML INJ (11:19)
[2024-12-30] MEDS: IOHEXOL 240 MG/ML - 10 ML VIAL 24 MG INJ (11:19)
[2024-12-30 11:21] VITALS: BP 144/72
--- NOTE | 2024-12-30 11:24 | W.PM.PROCNOT ---
Date of procedure: 12/30/24 Pre-op diagnosis: Pain due to lumbar stenosis with neurogenic claudication Post-op diagnosis: same as pre-op Procedure: Procedure: Bilateral L4-5 transforaminal epidural steroid injection Medications: Bupivacaine 0.25% 2cc, lidocaine 2% 1cc, depomedrol 80mg The patient was seen and examined in the preoperative holding area.? Informed consent was obtained and placed on the chart.? Patient was brought to the medical procedure unit and placed in the prone position where a timeout was completed verifying the correct patient, procedure site, position, and planned special equipment using sterile aseptic technique.? Under direct fluoroscopic visualization a 25-gauge Quincke tipped spinal needle was advanced at level left L5-S1 to the designated neural foramen where contrast dye was injected to show adequate spread.? There was no evidence of vascular or adverse uptake.? Epidural spread was appreciated.? The above-mentioned injectate was then placed in a 1.5 mL aliquot preceded by negative aspiration.? The needle was removed. The same procedure, at the same level, was completed on the opposite side. ? Patient was taken to the postprocedural recovery area and monitored for an appropriate length of time before found suitable for discharge in the accompaniment of a responsible adult. Anesthesia: Local Surgeon: Jadyn Wyman Pathology: none sent Condition: stable Disposition: no change
== END 2024-12-30 11:23 | disposition home or self-care (01) ==
PROVIDERS: PCP Internal Medicine; Visit Provider Anesthesiology
DX: M48.062 Spinal stenosis, lumbar region with neurogenic claudication (principal); M54.50 Low back pain, unspecified
CPT/HCPCS: 64483; J0665; J1010; Q9966

== ENCOUNTER 2025-01-15 14:01 | Outpatient (OUT) | payer MEDICARE, SELFPAY ==
--- OUTSIDE RECORDS SUMMARY | 2024-03-18 11:00 | XMS_ITS ---
Author Organization [facility] Address [address] [place] [address] Care Team Providers Care Directory Assistance Operator Name Role Phone Wilton Kramer [facility] [phone] REASON FOR VISIT Home health P.T. Encounters Encounter Location Date Provider Diagnosis [facility] [address] [place] [address] 03/18/2024 Wilton Kramer Plan Of Treatment No Information Progress Notes * TAURUS GARCIA ADOB: [birth year] (78 yo M)Acc No.[id number]:03/18/2024 Patient: Saray TAURUS FRANK :1945 A ge:78 Y S ex:Male Address:[address], [place], [address] * true * Date: Generated for Chao mckenna/Keila/eTransmitting on: 0 01/15/2025 02:05 PM EDT
--- OUTSIDE RECORDS SUMMARY | 2024-05-14 09:47 | XMS_ITS ---
Author Organization [facility] Address [address] [place] [address] Care Team Providers Care Semi Conductor Assembler Name Role Phone Wilton Kramer [facility] [phone] Encounters Encounter Location Date Provider Diagnosis [facility] [address] [place] [address] 05/14/2024 Wilton Kramer Primary osteoarthrit is of left knee M17.12 and Pain, joint, knee, left M25.562 Assessments Encounter Date Diagnosis (ICD Code) Assessment Notes Treatment Notes Treatment Clinical Notes Section Notes 05/14/2024 Primary osteoarthritis of left knee (ICD-10 - M17.12) 05/14/2024 Pain, joint, knee, left (ICD-10 - M25.562) Plan Of Treatment Pending Test Test Name Order Date Home PT 05/14/2024 Progress Notes * TAURUS GARCIA ADOB: [birth year] (78 yo M)Acc No.[id number]:05/14/2024 Patient: TAURUS PRESLEY Carrie :1945 A ge:78 Y S ex:Male Address:[place], [address] Subjective: * Chief Complaints: * * Medical History: * Surgical History: * Hospitalization/Major Diagno stic Procedure: * Medications: Objective: * Vitals: * Physical Examination: Assessment: * Assessment: 1. P rimary osteoarthritis of left knee - M17.12 (Primary) 2 . P ain, joint, knee, left - M25.562 Plan: * Treatment: 2. P ain, joint, knee, left L AB: Home PT * Procedure Codes: * true * Date: Generated for Chao mckenna/Keila/William on: 0 01/15/2025 02:05 PM EDT
--- OUTSIDE RECORDS SUMMARY | 2024-05-20 05:21 | XMS_ITS ---
Author Organization [facility] Address [address] [place] [address] Care Team Providers Care Legal Word Processor Name Role Phone Wilton Kramer [facility] [phone] REASON FOR VISIT Home health Encounters Encounter Location Date Provider Diagnosis [facility] [address] [facility] [address] [place] [address] [address] 05/20/2024 Wilton Kramer Plan Of Treatment No Information Progress Notes * TAURSU GARCIA ADOB: [birth year] (78 yo M)Acc No.[id number]:05/20/2024 Patient: Saray TAURUS FRANK :1945 A ge:78 Y S ex:Male Address:[address], [place], [address] * true * Date: Generated for Chao mckenna/Keila/eTransmitting on: 0 01/15/2025 02:06 PM EDT
--- OUTSIDE RECORDS SUMMARY | 2024-06-04 04:30 | XMS_ITS ---
Author Organization [facility] in [place] Address [address] [place] [address] Care Team Providers Care Silo Filler Name Role Phone Patrick BRIDGES, Beni Primary Care Provider Unavailab Ivan Engle [phone] REASON FOR VISIT Cysto Encounters Encounter Location Date Provider Diagnosis U[facility] [address] [address] 06/04/2024 Ivan Barnhart Plan Of Treatment No Information Progress Notes * Ankur REILLY ADOB: [birth year] (79 yo M)Acc No.[id number]:06/04/2024 UNLOCKED PROGRESS NOTE 0 Patient: Ankur PRESLEY Provider: Yakelin Barnhart MD :1945 A ge:78 Y S ex:Male Date:06/04/2024 Address:[address], [place] Pcp:Beni Nguyen MD Subjective: * Chief Complaints: * 1 . Cysto. * Medical History: Objective: * Vitals: Assessment: Plan: * Treatment: * * Electronic signature of Steven Barnhart MD, [id number] on 01/15/2025 at 02:04 PM EDT Sign off status: Pending Visit Status: R /S (Rescheduled) * Provider: Yakelin Barnhart MD Date: 1 Generated for Printi ng/Faxing/eTransmitting on: 0 01/15/2025 02:04 PM EDT
--- OUTSIDE RECORDS SUMMARY | 2024-07-30 07:30 | XMS_ITS ---
Author Organization [facility] in [place] Address [address] [place] [address] Care Team Providers Care Cryogenics Engineer Name Role Phone Patrick BRIDGES, Beni Primary Care Provider Unavailab Ivan Engle [phone] REASON FOR VISIT Cysto Encounters Encounter Location Date Provider Diagnosis [facility] [address] [address] 07/30/2024 Ivan Barnhart Plan Of Treatment No Information Progress Notes * Ankur REILLY ADOB: [birth year] (79 yo M)Acc No.[id number]:07/30/2024 UNLOCKED PROGRESS NOTE 0 Patient: Ankur PRESLEY Provider: Yakelin Barnhart MD :1945 A ge:78 Y S ex:Male Date:07/30/2024 Address:[address], [place] Pcp:Beni Nguyen MD Subjective: * Chief Complaints: * 1 . Cysto. * Medical History: Objective: * Vitals: Assessment: Plan: * Treatment: * * Electronic signature of Steven Barnhart MD, [id number] on 01/15/2025 at 09:52 AM EDT Sign off status: Pending Visit Status: C ANC (Cancelled) * Provider: Yakelin Barnhart MD Date: 1 09/30/2023 Generated for Printi ng/Faxing/eTransmitting on: 0 01/15/2025 09:52 AM EDT
--- OUTSIDE RECORDS SUMMARY | 2025-01-02 16:20 | XMS_ITS | Encounter Summary ---
Author Organization [facility] Address [address] [place] [address] Care Team Providers Care Coil Winder Hand Name Role Phone Beni Nguyen MD Primary Care Provider [phone] Beni Nguyen MD Unavailable [phone] Anastasia Rayo LPN Unavailable Unavailable Reason for Visit * Reason Comments Follow-up Lt gt fx Encounter Details Date Type Department Care Team ([facility] st Contact Info) Description 01/02/2025 4:20 PM EDT Office Visit [facility] [address] [facility] [address] [place] [address] Real Og, DPMarcial [address] [facility] [address] [place] [address] Laceration of lesser toe of left foot without foreign body present, nail damage status unspecified, initial encounter (Primary Dx); Closed nondisplaced fracture of distal phalanx of left great toe, initial encounter; Venous insufficiency Social History Tobacco Use Types Packs/Day Years Used Date Smoking Tobacco: Never Smokeless Tobacco: Never Tobacco Cessation:Counseling Given: Yes Alcohol Use Standard Drinks/Week Comments Yes 0 (1 standard drink = 0.6 oz pur e alcohol) B1300 Health Literacy Answer Date Recor ded How often do you need to hav e someone help you when you read instructions, pamphlets, or other written material from your doctor or pharmacy? Never 05/24/2024 Humiliation, Afraid, Rape, and Kick questionnair e Answer Date Recorded Within the last year, have y ou been afraid of your partner or ex-partner? No 03/17/2023 Within the last year, have y ou been humiliated or emotionally abused in other ways by your partner or ex-partner? No Within the last year, have y ou been kicked, hit, slapped, or otherwise physically hurt by your partner or ex-partner? No 03/17/2023 Within the last year, have y ou been raped or forced to have any kind of sexual activity by your partner or ex-partner? No 03/17/2023 Social Connection and Isolat ion Panel [NHANES] Answer Date Recorded In a typical week, how many times do you talk on the phone with family, friends, or neighbors? More than three times a week 03/17/2023 How often do you get togethe r with friends or relatives? Once a week 03/17/2023 How often do you attend chur or mormonism services? Never 03/17/2023 Do you belong to any clubs o r organizations such as religious groups, unions, fraternal or athletic groups, or school groups? No 03/17/2023 How often do you attend meet ings of the clubs or organizations you belong to? Never 03/17/2023 Are you , , di vorced, , never , or living with a partner? 03/17/2023 AUDIT-C Answer Date Recorded Q1: How often do you have a drink containing alc ohol? Monthly or less 12/21/2023 Q2: How many drinks containi ng alcohol do you have on a typical day when you are drinking? 1 or 2 12/21/2023 Q3: How often do you have si x or more drinks on one occasion? Never 12/21/2023 Overall Financial Resource Strain (CARDIA) Answe r Date Recorded How hard is it for you to pa y for the very basics like food, housing, medical care, and heating? Not hard at all 03/17/2023 PHQ-2 Answer Date Recorded Patient Health Questionnaire-2 Score 0 12/05/2024 [facility] Occupat ional Health - Occupational Stress Questionnaire Answer Date Recorded Do you feel stress - tense, restless, nervous, or anxious, or unable to sleep at night because your mind is troubled all the time - these days? Only a little 03/17/2023 Exercise Vital Sign Answer Date Recorde d On average, how many days pe r week do you engage in moderate to strenuous exercise (like a brisk walk)? 0 days 03/17/2023 On average, how many minutes do you engage in exercise at this level? 0 min 03/17/2023 Hunger Vital Sign Answer Date Recorded Within the past 12 months, y ou worried that your food would run out before you got the money to buy more. Never true 03/17/20 23 Within the past 12 months, t he food you bought just didn't last and you didn't have money to get more. Never true 03/17/2023 PRAPARE - Transportation Answer Date Re corded In the past 12 months, has l ack of transportation kept you from medical appointments or from getting medications? No 02/19 In the past 12 months, has l ack of transportation kept you from meetings, work, or from getting things needed for daily living? No 03/17/2023 Housing Stability Vital Sign Answer Yannick e Recorded In the last 12 months, was t here a time when you were not able to pay the mortgage or rent on time? No 03/17/2023 In the last 12 months, how many places have you lived? 1 03/17/2023 In the last 12 months, was t here a time when you did not have a steady place to sleep or slept in a intermediate (including now)? No 03/17/2023 Sex and Gender Information Value Date Recorded Sex Assigned at Not on file Legal Sex Male 6:56 PM EDT Gender Identity Not on file Sexual Orientation Not on file documented as of this encounter Last Filed Vital Signs Vital Sign Reading Time Taken Comments Blood Pressure - - Pulse - - Temperature - - Respiratory Rate 18 01/02/2025 4:24 PM EDT Oxygen Saturation - - Inhaled Oxygen Concentration - - Weight 138 kg (305 lb) 01/02/2025 4:24 PM EDT Height 172.7 cm (5' 8 ) 01/02/2025 4:24 PM EDT Body Mass Index 46.38 01/02/2025 4:24 PM EDT documented in this encounter Progress Notes * Real Og DPM - 01/02/2025 4:20 PM EDT Patient: Ankur Reilly : 1945 PCP: Beni Nguyen MD SUBJECTIVE This is a 79 y.o. male that presents today for a follow up of left great toe fracture with laceration with cellulitis and has been taking oral antibiotics and using walking boot and using betadine tosutures with improvement. Patient rates pain a 0-1/10. Pt has fx to distal medial tuft of the left hallux great toe. Allergies: No Known Allergies Past Medical History: Past Medical History: Diagnosis Date Acute respiratory failure with hypoxia ([facility]) 11/17/2023 Acute respiratory insufficiency 12/15/2018 d/t Pulmonary Emboli MATT (acute kidney injury) (CMS/[facility]) 09/17/2024 Allergic rhinitis due to other allergen Autoimmune disorder ([facility]) Bilateral pulmonary embolism ([facility]) 2019 Acute Hypoxic Resp. 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 Cervical radiculopathy at C8 05/2017 CTS (carpal tunnel syndrome) 05/2017 Bilateral Essential hypertension, benign ([facility]) Facial droop Head injury with fracture of skull ([facility]) 09/17/2024 History of being hospitalized 06/19/2024 Myasthenia Gravis Exacerbation, Weakness, Dyspnea History of being hospitalized 07/09/2024 Generalized Weakness, MATT History of being hospitalized 07/28/2024 Syncope, Head injury, Generalized weakness, Hypomagnesemia History of being hospitalized 09/11/2024 Myasthenia Gravis Crisis History of echocardiogram 12/15/2018 EF 60-65%, LVH Hypertension ([facility]) Impaired glucose tolerance test Oral Lumbosacral spondylosis without myelopathy LVH (left ventricular hypertrophy) 12/15/2018 ECHO EF 60-65% Macular edema 2008 /pucker Muscle cramp Myasthenia gravis 12/27/2017 / dyspnea Myasthenic crisis (CMS/HCC) 05/10/2023 Obesity Obstructive sleep apnea (adult) (pediatric) Pulmonary emboli 11/17/2023 Pulmonary embolism 11/2018 Pure hypercholesterolemia ([facility]) Shortness of breath Superficial thrombophlebitis 12/16/2018 Rt Thigh Syncope 09/17/2024 Tremor Troponin I above reference range 11/17/2023 Urothelial carcinoma ([facility]/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 UTI, Myasthenia Gravis, JORDAN 02/21/2018 Medications: Current Outpatient Medications: apixaban (Eliquis) 5 MG tablet, TAKE 1 TABLET BY MOUTH TWICE DAILY, Disp: 180 tablet, Rfl: 3 baclofen (Lioresal) 10 MG tablet, TAKE 1 TABLET BY MOUTH WITH FOOD OR MILK 3 TIMES DAILY, Disp: 270tablet, Rfl: 1 cephalexin (Keflex) 500 MG capsule, Take 500 mg by mouth in the morning and 500 mg before bedtime.,Disp: , Rfl: clotrimazole (Lotrimin) 1 % cream, Apply topically 2 (two) times a day, Disp: 30 g, Rfl: 5 furosemide (Lasix) 20 MG tablet, Take 1-2 tablets (20-40 mg) by mouth Daily, Disp: 180 tablet, Rfl:3 gabapentin (Neurontin) 300 MG capsule, TAKE 1 CAPSULE BY MOUTH IN THE MORNING AND 1 CAPSULE BY MOUTH BEFORE BEDTIME, Disp: 180 capsule, Rfl: 3 hydrALAZINE (Apresoline) 50 MG tablet, Take 1 tablet (50 mg) by mouth in the morning and 1 tablet (50 mg) before bedtime., Disp: 180 tablet, Rfl: 3 lisinopril 20 MG tablet, Take 1 tablet (20 mg) by mouth Daily, Disp: 90 tablet, Rfl: 3 loratadine (Claritin) 10 MG tablet, Take 10 mg by mouth in the morning., Disp: , Rfl: Multiple Vitamins-Minerals (GNP ONE DAILY MENS 50+ADVANCED PO), take 1 tablet by ORAL route every day with food Oral, Disp: , Rfl: nystatin (Mycostatin) 830852 UNIT/GM powder, APPLY TO THE AFFECTED AREA(S) THREE TIMES DAILY FOR 30DAYS, Disp: , Rfl: omega-3 (Fish Oil) 1000 MG capsule, Take 2 capsules by mouth in the morning., Disp: , Rfl: oxyCODONE-acetaminophen (Percocet) 5-325 MG tablet, Take 1 tablet by mouth 2 (two) times a day as needed for moderate pain or severe pain, Disp: 60 tablet, Rfl: 0 potassium chloride CR (Klor-Con M10) 10 MEQ ER tablet, TAKE 1 TABLET BY MOUTH IN THE MORNING AND 1 TABLET BY MOUTH BEFORE BEDTIME TAKE WITH FOOD, Disp: 180 tablet, Rfl: 3 predniSONE (Deltasone) 10 MG tablet, TAKE 1 AND 1/2 TABLETS BY MOUTH DAILY, Disp: 135 tablet, Rfl: 0 pyridostigmine (Mestinon) 60 MG tablet, TAKE 1 TABLET BY MOUTH IN THE MORNING AND 1 TABLET BY MOUTHAT NOON AND 1 TABLET BY MOUTH IN THE EVENING AND 1 TABLET BY MOUTH BEFORE BEDTIME, Disp: 400 tablet, Rfl: 3 simvastatin (Zocor) 40 MG tablet, TAKE 1 TABLET BY MOUTH ONCE DAILY IN THE EVENING, Disp: 90 tablet, Rfl: 3 ROS: General: denies fever, chills, fatigue, malaise GI: denies loose or watery stool on antibiotic OBJECTIVE LE EXAM: DERM: Positive hair growth to b/l feet with good skin turgor noted. Negative openings in skin. Sutures intact to distal aspect of the left great toe with negative erythema and negative drainage VASC: Palpable pedal pulsed b/l with warm to cool tibia to toes b/l NEURO: Gross sensation intact digits 1-10 and b/l feet ORTHO: +5/5 DF/PF/IN/EV right, +5/5 DF/PF/IN/EV left. 20 degrees inversion and 10 degrees eversion STJ b/l. Ankle ROM less than 10 degrees b/l. negative pain on palpation to distal phalanx of the left great toe XRAY US: ASSESSMENT 1. Laceration of lesser toe of left foot without foreign body present, nail damage status unspecified, initial encounter 2. Closed nondisplaced fracture of distal phalanx of left great toe, initial encounter 3. Venous insufficiency PLAN Pt to take nsaids as needed PRN pain Sutures were removed today to the foot and patient in now able to get foot wet. Return to clinic for nail care in the future Real Og DPM documented in this encounter Plan of Treatment Upcoming Encounters Date Type Department Care Team (Late st Contact Info) Description 01/30/2025 3:10 PM EDT Procedure Visit [facility] [address] [facility] [address] [place] [id number] Real Og DPM [address] [facility] [address] [place] [address] 05/05/2025 1:30 PM EDT Office Visit [facility] [address] [place] [address] Tevin Saundersjose [address] [place] [address] documented as of this encounter Visit Diagnoses Diagnosis Laceration of lesser toe of left foot without foreign body present, nail damage status unspecified, initial encounter- Primary Closed nondisplaced fracture of distal phalanx of left great toe, initial encounter Venous insufficiency Unspecified venous (peripheral) insufficiency documented in this encounter Care Teams Coil Winder Hand Relationship Specialty Start Date End Date Beni Nguyen MD [address] [facility] [address] [place] [address] PCP - General Internal Medicine 01/02/23 Beni Nguyen MD [address] [facility] [address] [place] [address] PCP - ACO Reach 01/12/23 Anastasia Rayo LPN 11/08/24 documented as of this encounter
--- OUTSIDE RECORDS SUMMARY | 2025-01-06 12:30 | XMS_ITS | Encounter Summary ---
Author Organization [facility] Address [address] [place] [address] Care Team Providers Care Sample Clerk Name Role Phone Beni Nguyen MD Primary Care Provider [phone] Beni Nguyen MD Unavailable [phone] Anastasia Rayo LPN Unavailable Unavailable Encounter Details Date Type Department Care Team (Late st Contact Info) Description 01/06/2025 12:30 PM EDT Office Visit [facility] K[facility]STOP[facility] [address] [place] [phone] Sandro Saunders DO [address] [place] [address] Myasthenia gravis (Primary Dx); Class 3 severe obesity due to excess calories with serious comorbidity and body mass index (BMI) of 45.0 to 49.9 in adult; Ulnar neuropathy of both upper extremities Social History Tobacco Use Types Packs/Day Years Used Date Smoking Tobacco: Never Smokeless Tobacco: Never Tobacco Cessation:Counseling Given: Not Answered Alcohol Use Standard Drinks/Week Comments Yes 0 [...] 03/17/2023 How often do you attend chur ch or mormon services? Never 03/17/2023 Do you belong to any clubs o r organizations such as lutheran groups, unions, fraternal or athletic groups, or [...] Recorded Patient Health Questionnaire-2 Score 0 12/05/2024 [facility] of Occupat ional Health - Occupational Stress [...] place to sleep or slept in a prison (including now)? No 03/17/2023 Sex and Gender Information Value Date Recorded Sex Assigned at Not on file Legal Sex Male 6:56 PM EDT Gender Identity Not on file Sexual Orientation Not on file documented as of this encounter Last Filed Vital Signs Vital Sign Reading Time Taken Comments Blood Pressure 150/84 01/06/2025 12:33 PM EDT Pulse 106 01/06/2025 12:33 PM EDT Temperature - - Respiratory Rate - - Oxygen Saturation 94% 01/06/2025 12:33 PM EDT Inhaled Oxygen Concentration - - Weight 137 kg (302 lb 12.8 oz) 01/06/2025 12:33 PM EDT Height - - Body Mass Index 46.04 01/02/2025 4:24 PM EDT documented in this encounter Progress Notes * Sandro Saunders, - 01/06/2025 12:30 PM EDT Images from the original note were not included. Chief Complaint: MG Subjective Ankur Reilly is a 79 y.o. male. History of Present Illness The patient presents today for a follow up for Myasthenia Gravis. He is accompanied by his . Hecontinues on prednisone and pyridostigmine. Patient denies any new signs of symptoms of myasthenia exacerbation or crisis. He states things have been going well. He denies any new concerns at this time. His ulnar nerve pain is stable. No episodes of crisis since last visit. His weight remains substantially elevated. Of note, the patient states he underwent extensive workup with pulmonology in the past which was unremarkable. Pulmonology felt his SOB to be related to excess weight. Review of Systems Constitutional: Positive for fatigue. Negative for appetite change, chills, fever and unexpected weight change. HENT: Negative for trouble swallowing and voice change. Eyes: Negative for visual disturbance. 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 Negative for visual change or double vision Respiratory: Positive for shortness of breath (on exertion - chronic). Negative for cough and wheezing. Cardiovascular: Positive for leg swelling. Negative for chest pain and palpitations. Gastrointestinal: Negative for abdominal pain, blood in stool, nausea and vomiting. Musculoskeletal: Positive for arthralgias and back pain (low back). Negative for gait problem and myalgias. Positive for hip pain Neurological: Positive for tremors. Negative for dizziness, seizures, syncope, facial asymmetry, speech difficulty, weakness, light-headedness, numbness and headaches. Psychiatric/Behavioral: Negative for confusion, hallucinations and suicidal ideas. The patient is not nervous/anxious. Past Medical History: Diagnosis Date Acute respiratory failure with hypoxia ([facility]) 11/17/2023 Acute respiratory insufficiency 12/15/2018 d/t Pulmonary Emboli MATT (acute kidney injury) ([facility]) 09/17/2024 Allergic rhinitis due to other allergen Autoimmune disorder ([facility]) Bilateral pulmonary embolism ([facility]) 2019 Acute Hypoxic Resp. 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 Cervical radiculopathy at C8 05/2017 CTS (carpal tunnel syndrome) 05/2017 Bilateral Essential hypertension, benign ([facility]) Facial droop Head injury with fracture of skull ([facility]) 09/17/2024 History of being hospitalized 06/19/2024 Myasthenia [...] hypertrophy) 12/15/2018 ECHO EF 60-65% Macular edema 2009 /pucker Muscle cramp Myasthenia gravis 12/27/2017 / dyspnea Myasthenic crisis (CMS/HCC) 05/10/2023 Obesity Obstructive sleep apnea (adult) (pediatric) Pulmonary emboli 11/17/2023 Pulmonary embolism 11/2018 Pure hypercholesterolemia ([facility]) Shortness of breath Superficial thrombophlebitis 12/16/2018 Rt Thigh Syncope 09/17/2024 Tremor Troponin I above reference range 11/17/2023 Urothelial carcinoma (CMS/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 hematuria s/p smith cath trauma and possible SIRS Family History Problem Relation Name Age of Onset Cancer Mother Heart disease Father *denies family hx of MM Heart disease Other Multiple myeloma Neg Hx Social History Tobacco Use Smoking status: Never Smokeless tobacco: Never Substance Use Topics Alcohol use: Yes Allergies: Patient has no known allergies. Vitals: 01/06/25 1233 BP: 150/84 Pulse: 106 SpO2: 94% Body mass index is 46.04 kg/m??. Weight: 302 lb 12.8 oz Neurologic exam: Mental status and general appearance: Awake and alert with unlabored respirations. Normal work of breathing. No signs of respiratory distress observed. Oriented to person, place, and time. Recent and remote memory are intact. Speech is clear and fluent without aphasia. Speech is non-dysarthric. Attention and concentration are normal. Fund of knowledge is appropriate for level of education. Obese. Pleasant. Edema of the bilateral lower extremities. Cranial nerves: CN II: Visual acuity is normal on the left but impaired on the right. Visual hanley full to confrontation. CN III, IV, : Pupils are equal, round and reactive to light. Extraocular movements intact. No ptosis on the left. Intermittent ptosis of the right upper eyelid. Sustained upgaze does not yield any obvious [...] wrist extensors , wrist flexor , and branch logistics supervisor strength 5/5. LUE strength deltoid , biceps , triceps , wrist extensors , wrist flexor , and branch logistics supervisor strength 5/5. RLE strength iliopsoas, quadriceps, tibialis anterior, and plantar flexion strength 5/5. LLE strength iliopsoas, quadriceps, tibialis anterior, and plantar flexion strength 5/5. No weakness of the neck flexor or extensor muscles. Tone and bulk are normal. Sensory: Sensation is intact to light touch throughout all four extremities. Sensation is intact to temperature in all extremities. Reflexes: RUE biceps reflex 1+ , brachioradialis reflex 1+. LUE biceps reflex 1+ , brachioradialis reflex 1+. RLE knee reflex 0. LLE knee reflex 0. Coordination: [id number] testing normal. Rapid alternating movements are normal. Gait: Utilizing walker. Review and summary of old records: I reviewed documentation from the patient's inpatient hospitalization at [facility] from 09/11/2024 to 09/13/2024. The patient presented to [facility] at that time due to mild increase in generalized weakness and shortness of breath. Chest x-ray on 09/11/2024: No acute process. ECG on : Normal sinus rhythm. Nonspecific T wave flattening. Labs on 09/11/2024: CBC generally unremarkable aside from RDW 17.1% (elevated), monocytes 14% (elevated). BMP with BUN 29 (elevated), creatinine 1.49 (elevated), and GFR 47 (low); otherwise unremarkable. Magnesium 2.1. CT of the head/ brain on 07/28/2024: No acute intracranial process. CTA of the head and neck on 07/09/2024: Atherosclerotic plaque without critical stenosis or vascular occlusive disease. I reviewed documentation from the patient's emergency department visit at [facility] on 02/12/2024. The patient presented with mild diffuse generalized weakness at the time. He was prescribed prednisone 60 mg by mouth x5 days. He was seemingly without any other apparent signs or symptoms of infection or MG exacerbation. EMG of the bilateral upper extremities on 04/05/19: C8 radiculopathy on the right which is mild, carpal tunnel syndrome on the left which is mild, ulnar neuropathies bilaterally which are mild, ulnar neuropathies are new MRI of the brain without contrast at [facility] [address] [facility] on 02/20/18: Unremarkable EMG of the bilateral upper extremities on 06/19/17: Bilateral median neuropathy such as in carpal tunnel syndrome which is mild in degree electrically. Also a remote right C8 radiculopathy. Assessment/Plan Diagnoses and all orders for this visit: Myasthenia gravis ([facility]) Mr. Pascual is an 79-year-old male with a history of antibody positive myasthenia gravis. He does have a history of myasthenic crisis in April 2023 at which time he received a 5-day course of IVIG and was intubated with mechanical ventilation. Since the prior neurology appointment, he has been m aintained on prednisone 15 mg daily and pyridostigmine 60 mg PO QID. He reports evaluation at [facility] in late August 2024 due to mild exacerbation of generalized weakness and mild increase in dyspnea. Chest x-ray at the time revealed no acute process, and inspiratory force was negative around -50 to -40. He denied diplopia, slurred speech, speech difficulty, or swallowing difficulty. The patient did not require intubation or ventilation during his hospitalization, and suspicion for myasthenic exacerbation versus crisis was felt to be very low at the time. He was discharged without any changes to his home medications. Patient has been doing quite well since last visit without exacerbation and with good tolerance of medications. This is somewhat of a rarity as he has had some quite difficult to control myasthenia gravis. PLAN: - Continue prednisone 15 mg by mouth once a day - Continue pyridostigmine IR 60 mg by mouth four times a day. I would caution further dose increases due to bradycardia. The patient's heart rate in office today is 52 beats/min, however, the patientis asymptomatic. Should his heart rate decrease further in the future, or should he become symptomatic, may need to consider alternative medications. I advised the patient to notify the office or seek care if he develops dizziness, lightheadedness, chest pain, or syncope - I offered referral to Neurology for a second opinion regarding his myasthenia gravis and management. The patient politely declined this - Continue baclofen 5 to 10 mg by mouth three times a day as needed for muscle cramps - We have discussed the need for acute evaluation in the emergency department should the patient's baseline shortness of breath worsen in the future. The patient understands the importance of emergency evaluation to assess for life- threatening myasthenic crisis. We discussed this in detail, and he is clearly understanding of this risk and how to proceed should this happen - The patient is aware of the symptoms of myasthenic exacerbation/crisis and will notify the officeif he experiences any of these Shortness of breath The patient has chronic shortness of breath primarily with exertion, and I suspect the etiology of this is LESS likely neurologic and more likely cardiac/exercise intolerance related. Seemingly stable recently. PLAN: - Weight loss measures encouraged - Follow up with cardiology per their recommendations Class 3 severe obesity due to excess calories with serious comorbidity and body mass index (BMI) of45.0 to 49.9 in adult (CMS/[facility]) The patient is obese. PLAN: - We discussed the importance of continued weight loss measures (healthy diet and regular physical activity as tolerated) in order to improve the patient's health Low back pain at multiple sites The patient reports low back pain. He is established with pain management for this and is followingup with them closely. PLAN: - I will defer management to the pain management specialty at this time Ulnar neuropathy of both upper extremities Identified on [facility] EMG from 04/05/19. This remains clinically stable. Diagnosis and treatment options discussed in detail. All questions answered. The patient and his verbalize understanding and are agreeable to the plan. Discussion in layman's terms. Follow up in the office within 3 months; sooner if needed for new or worsening symptoms. LELAND Middleton [facility] documented in this encounter Plan of Treatment Upcoming Encounters Date Type Department Care Team (Late st Contact Info) Description 01/30/2025 3:10 PM EDT Procedure Visit [facility] [address] [facility] [address] [place] [phone] Real Og, DPM [address] [facility] [address] [place] [address] 05/05/2025 1:30 PM EDT Office Visit [facility] KRISTOPHER [address] [place] [phone] Sandro Saunders DO [address] [place], [place] [phone] documented as of this encounter Visit Diagnoses Diagnosis Myasthenia gravis- Primary Myasthenia gravis without exacerbation Class 3 severe obesity due to excess calories with serious comorbidity and body mass index (BMI) of 45.0 to 49.9 in adult Ulnar neuropathy of both upper extremities documented in this encounter Care Teams Sample Clerk Relationship Specialty Start Date End Date Beni Nguyen MD [address] [facility] [address] [place] [address] PCP - General Internal Medicine 01/02/23 Beni Nguyen MD [address] [facility] [address] [place] [address] PCP - ACO Reach 01/12/23 Anastasia Rayo LPN 11/08/24 documented as of this encounter
--- OUTSIDE RECORDS SUMMARY | 2025-01-15 10:00 | XMS_ITS | Encounter Summary ---
Author Organization [facility] Address [address] [place] [address] Phone Care Team Providers Care Emergency Vehicle Driver Name Role Phone Beni Nguyen MD Primary Care Provider [phone] Reason for Visit * Reason Comments Follow-up 2m Follow up for Atr ial Fibrillation * Consultation (Routine) - Authorized Specialty Diagnoses / Procedures Referred By Contac t Referred To Contact Cardiology Diagnoses Localized edema Procedures Follow Up In Cardiology Melonie Rizvi PHARMACEUTICAL ENGINEER-ART APPRAISER [address] [facility] [address], [address] [address] Phone: tel: fax: Referral ID Status Reason Start Date Expiration Date V isits Requested Visits Authorized [id number] Authorized 11/04/2024 11/04/2025 1 1 Encounter Details Date Type Department Care Team (Late st Contact Info) Description 01/15/2025 10:00 AM EDT Office Visit [facility] [address] [phone] Melonie Rizvi PHARMACEUTICAL ENGINEER-ART APPRAISER [address] [facility] [address], [address] [address] Localized edema Social History Tobacco Use Types Packs/Day Years Used Date Smoking Tobacco: Never Smokeless Tobacco: Never Alcohol Use Standard Drinks/Week Comments Never 0 (1 standard drink = 0.6 oz pur e alcohol) Sex and Gender Information Value Date Recorded Sex Assigned at Not on file Legal Sex Male 9:42 AM EST Gender Identity Not on file Sexual Orientation Not on file COVID-19 Exposure Response Date Recorded In the last 10 days, have yo u been in contact with someone who was confirmed or suspected to have Coronavirus/COVID-19? No / Unsure 01/15/2025 9:51 AM EDT documented as of this encounter Last Filed Vital Signs Vital Sign Reading Time Taken Comments Blood Pressure 122/56 01/15/2025 9:59 AM EDT Pulse 84 01/15/2025 9:59 AM EDT Temperature - - Respiratory Rate - - Oxygen Saturation - - Inhaled Oxygen Concentration - - Weight 140 kg (308 lb) 01/15/2025 9:59 AM EDT Height 172.7 cm (5' 8 ) 01/15/2025 9:59 AM EDT Body Mass Index 46.83 01/15/2025 9:59 AM EDT documented in this encounter Patient Instructions * Patient Instructions* SHANT Mock - 01/15/2025 10:00 AM EDT Please bring all medicines, vitamins, and herbal supplements with you when you come to the office. Prescriptions will not be filled unless you are compliant with your follow up appointments or have a follow up appointment scheduled as per instruction of your physician. Refills should be requested at the time of your visit. PLAN: Through informed decision making process incorporating patients unique circumstances, the followingtreatment plan will be initiated: 1. Prescription drug management of cardiovascular medication for efficacy, adherence to treatment, side effect assessment and polypharmacy. Current treatment clinically warranted and to continue without modifications. 2. Return for follow-up; in the interim, contact the office if new symptoms arise. Dr. Hoover as scheduled documented in this encounter Plan of Treatment Upcoming Encounters Date Type Department Care Team (Late st Contact Info) Description 09/25/2025 2:10 PM EST Office Visit [facility] [address] [facility] [address] [place] [phone] Juan C Hoover DO [address] [facility] [address] [place] [address] documented as of this encounter Visit Diagnoses Diagnosis Localized edema Edema documented in this encounter Additional Health Concerns Assessment Noted Time A fall risk assessment has been complete d for the patient 01/15/2025 9:59 AM EDT documented as of this encounter Care Teams Emergency Vehicle Driver Relationship Specialty Start Date End Date Beni Nguyen MD 112 [facility] [address] [place] [phone] PCP - General 05/18/23 documented as of this encounter
--- OUTSIDE RECORDS SUMMARY | 2025-01-15 14:04 | XMS_ITS | Encounter Summary ---
Author Organization [facility] Address [address] [place] [address] Care Team Providers Care Hat Ironer Name Role Phone Beni Nguyen MD Primary Care Provider [phone] Beni Nguyen MD Unavailable [phone] Anastasia Rayo LPN Unavailable Unavailable Encounter Details Date Type Department Care Team (Late st Contact Info) Description 12/18/2024 Abstract [facility] [address] [facility] 110 [place] [phone] Beni Nguyen MD 112 [facility] 110 [place] [address] Social History Tobacco Use Types Packs/Day Years Used Date Smoking Tobacco: Never Smokeless Tobacco: Never Alcohol Use Standard Drinks/Week Comments Yes 0 [...] any clubs o r organizations such as tenriism groups, unions, fraternal or athletic groups, or [...] Recorded Patient Health Questionnaire-2 Score 0 12/05/2024 [facility] of Occupat ionne Health - Occupational Stress Questionnaire Answer Date [...] place to sleep or slept in a jail (including now)? No 03/17/2023 Sex and Gender Information Value Date Recorded Sex Assigned at Not on file Legal Sex Male 6:56 PM EDT Gender Identity Not on file Sexual Orientation Not on file documented as of this encounter Plan of Treatment Upcoming Encounters Date Type Department Care Team ([facility] Contact Info) Description 01/30/2025 3:10 PM EDT Procedure Visit [facility] [address] [facility] 120 [place] [phone] Real Og DPM [address] [facility] 5 [place] [address] 05/05/2025 1:30 PM EDT Office Visit [facility]ERS [address] [place] [address] Sandro Saunders DO [address] [place] [address] documented as of this encounter Visit Diagnoses Not on filedocumented in this encounter Care Teams Hat Ironer Relationship Specialty Start Date End Date Beni Nguyen MD [address] [facility] [address] [place] [address] PCP - General Internal Medicine 01/02/23 Beni Nguyen MD [address] [facility] [address] [place] [address] PCP - ACO Reach 01/12/23 Anastasia Rayo LPN 11/08/24 documented as of this encounter
--- OUTSIDE RECORDS SUMMARY | 2025-01-15 14:04 | XMS_ITS | Encounter Summary ---
Author Organization [facility] Address [address] [place] [address] Care Team Providers Care Moulder Operator Name Role Phone Beni Nguyen MD Primary Care Provider [phone] Beni Nguyen MD Unavailable [phone] Anastasia Rayo LPN Unavailable Unavailable Encounter Details Date Type Department Care Team (Late st Contact Info) Description 12/31/2024 Abstract [facility] 112 [facility] [address] [place] [phone] Beni Nguyen MD 112 [facility] 110 [place] [address] Social History Tobacco Use Types Packs/Day Years [...] How often do you attend chur or advent services? Never 03/17/2023 Do you belong to any clubs o r organizations such as amish groups, unions, fraternal or athletic groups, or [...] Recorded Patient Health Questionnaire-2 Score 0 12/05/2024 [facility] of Occupat ionak Health - Occupational Stress Questionnaire Answer Date [...] place to sleep or slept in a custodial (including now)? No 03/17/2023 Sex and Gender Information Value Date Recorded Sex Assigned at Not on file Legal Sex Male 6:56 PM EDT Gender Identity Not on file Sexual Orientation Not on file documented as of this encounter Plan of Treatment Upcoming Encounters Date Type Department Care Team ([facility] Contact Info) Description 01/30/2025 3:10 PM EDT Procedure Visit [facility] [address] [facility] 120 [place] [phone] Real Og DPM [address] [facility] 5 [place] [address] 05/05/2025 1:30 PM EDT Office Visit [facility]LL SUMMERS [address] [place] [phone] Sandro Saunders DO [address] [place] [address] documented as of this encounter Visit Diagnoses Not on filedocumented in this encounter Care Teams Moulder Operator Relationship Specialty Start Date End Date Beni Nguyen MD [address] [facility] [address] [place] [address] PCP - General Internal Medicine 01/02/23 Beni Nguyen MD [address] [facility] [address] [place] [address] PCP - ACO Reach 01/12/23 Anastasia Rayo LPN 11/08/24 documented as of this encounter
--- OUTSIDE RECORDS SUMMARY | 2025-01-15 14:04 | XMS_ITS | Encounter Summary ---
Author Organization [facility] Address [address] [place] [address] Phone Care Team Providers Care Greenhouse Florist Name Role Phone Beni Nguyen MD Primary Care Provider [phone] Encounter Details Date Type Department Care Team (Late st Contact Info) Description 08/18/2021 Orders Only [facility] [address] [place] [address] Conversion, Onbase Social History Tobacco Use Types Packs/Day Years Used Date Smoking Tobacco: Never Assessed Sex and Gender Information Value Date Recorded Sex Assigned at Not on file Legal Sex Male 9:42 AM EST Gender Identity Not on file Sexual Orientation Not on file documented as of this encounter Plan of Treatment Upcoming Encounters Date Type Department Care Team (Late st Contact Info) Description 09/25/2025 2:10 PM EST Office Visit [facility] [address] [facility] [address] [place] [address] Juan C Hoover, DO [address] [place] [address] Scheduled Orders Name Type Priority Associated Diagnoses Orde r Schedule OUTSIDE LAB SCAN Lab Ordered: 08/18/2021 documented as of this encounter Visit Diagnoses Not on filedocumented in this encounter Care Teams Greenhouse Florist Relationship Specialty Start Date End Date Beni Nguyen MD [address] [place] [address] PCP - General 05/18/23 documented as of this encounter
--- OUTSIDE RECORDS SUMMARY | 2025-01-15 14:04 | XMS_ITS | Encounter Summary ---
Author Organization [facility] Address [address] [place] [address] Care Team Providers Care Nuclear Criticality Safety Engineer Name Role Phone Beni Nguyen MD Primary Care Provider [phone] Beni Nguyen MD Unavailable [phone] Anastasia Rayo LPN Unavailable Unavailable Encounter Details Date Type Department Care Team (Late st Contact Info) Description 12/31/2024 Abstract [facility] 112 [facility] 110 [place] [address] Beni Nguyen MD 112 [facility] 110 [place] [address] Social History Tobacco Use Types Packs/Day Years [...] How often do you attend chur or jehovah's witness services? Never 03/17/2023 Do you belong to any clubs o r organizations such as evangelical groups, unions, fraternal or athletic groups, or [...] Recorded Patient Health Questionnaire-2 Score 0 12/05/2024 [facility] of Occupat ionil Health - Occupational Stress Questionnaire Answer Date [...] Upcoming Encounters Date Type Department Care Team ([facility] [address] Contact Info) Description 01/30/2025 3:10 PM EDT Procedure Visit [facility] 112 [facility] 120 [place] [address] Real Og DPM 3006 [facility] 5 [place] [address] 05/05/2025 1:30 PM EDT Office Visit [facility] [address] [place] [address] Sandro Saunders DO [address] [place] [address] documented as of this encounter Visit Diagnoses Not on filedocumented in this encounter Care Teams Nuclear Criticality Safety Engineer Relationship Specialty Start Date End Date Beni Nguyen MD [address] [facility] 110 [place] [address] PCP - General Internal Medicine 01/02/23 Beni Nguyen MD [address] [facility] [address] [place] [address] PCP - ACO Reach 01/12/23 Anastasia Rayo LPN 11/08/24 documented as of this encounter
--- OUTSIDE RECORDS SUMMARY | 2025-01-15 14:04 | XMS_ITS | Encounter Summary ---
Author Organization [facility] Address [address] [place] [address] Phone Care Team Providers Care Chicken Dresser Name Role Phone Beni Nguyen MD Primary Care Provider [phone] Encounter Details Date Type Department Care Team (Late st Contact Info) Description 08/10/2022 Orders Only [facility] [address] [place] [address] Conversion, Onbase Social History Tobacco Use Types [...] Description 09/25/2025 2:10 PM EST Office Visit [facility] [address] [place] [address] Juan C Hoover, DO [address] [place] [address] Scheduled Orders Name Type Priority Associated Diagnoses Orde r Schedule OUTSIDE LAB SCAN Lab Ordered: 08/10/2022 documented as of this encounter Visit Diagnoses Not on filedocumented in this encounter Care Teams Chicken Dresser Relationship Specialty Start Date End Date Beni Nguyen MD [address] [place] [address] PCP - General 05/18/23 documented as of this encounter
--- OUTSIDE RECORDS SUMMARY | 2025-01-15 14:04 | XMS_ITS | Encounter Summary ---
Author Organization [facility] Address [address] [place] [address] Care Team Providers Care Lace Stripper Name Role Phone Beni Nguyen MD Primary Care Provider [phone] Beni Nguyen MD Unavailable [phone] Anastasia Rayo LPN Unavailable Unavailable Encounter Details Date Type Department Care Team (Late st Contact Info) Description 12/11/2024 Abstract [facility] 112 [facility] 110 [place] [address] Beni Nguyen MD 112 [facility] 110 [place] [address] Social History Tobacco Use Types Packs/Day Years [...] How often do you attend chur or denominational services? Never 03/17/2023 Do you belong to any clubs o r organizations such as advent groups, unions, fraternal or athletic groups, or [...] Recorded Patient Health Questionnaire-2 Score 0 12/05/2024 [facility] of Occupat ionmo Health - Occupational Stress Questionnaire Answer Date [...] place to sleep or slept in a senior care (including now)? No 03/17/2023 Sex and Gender Information Value Date Recorded Sex Assigned at Not on file Legal Sex Male 6:56 PM EDT Gender Identity Not on file Sexual Orientation Not on file documented as of this encounter Plan of Treatment Upcoming Encounters Date Type Department Care Team ([facility] Contact Info) Description 01/30/2025 3:10 PM EDT Procedure Visit [facility] 112 [facility] 120 [place] [address] Real Og DPM 3006 [facility] 5 [place] [address] 05/05/2025 1:30 PM EDT Office Visit [facility] [address] [place] [address] Sandro Saunders DO [address] [place] [address] documented as of this encounter Visit Diagnoses Not on filedocumented in this encounter Care Teams Lace Stripper Relationship Specialty Start Date End Date Beni Nguyen MD [address] [facility] 110 [place] [address] PCP - General Internal Medicine 01/02/23 Beni Nguyen MD [address] [facility] 110 [place] [address] PCP - ACO Reach 01/12/23 Anastasia Rayo LPN 11/08/24 documented as of this encounter
--- OUTSIDE RECORDS SUMMARY | 2025-01-15 14:04 | XMS_ITS | Encounter Summary ---
Author Organization [facility] Address [address] [place] [address] Care Team Providers Care Service Writer Name Role Phone Patrick ARMENTA MD, Beni Hamlin Primary Care Provider [phone] Source Comments In the event this information is protected by the Federal Confidentiality of Alcohol and Drug AbusePatient Records regulations: The Federal rules restrict any use of the information to criminally investigate or prosecute any alcohol or drug abuse patient.[facility] Encounter Details Date Type Department Care Team (Latest Contact Info) Description 01/02/2019 H&P External-NonCCF Provider, External, ELVA Do not enter address information under generic External Provider. Social History Tobacco Use Types Packs/Day Years Used Date Smoking Tobacco: Never Alcohol Use Standard Drinks/Week Comments Yes 0 (1 standard drink = 0.6 oz pur e alcohol) rare Sex and Gender Information Value Date Recorded Sex Assigned at Not on file Legal Sex Male 1:51 PM EDT Gender Identity Not on file Sexual Orientation Not on file documented as of this encounter Plan of Treatment Not on file documented as of this encounter Visit Diagnoses Not on filedocumented in this encounter Care Teams Service Writer Relationship Specialty Start Date End Date Beni Nguyen II, MD [address] [place] [address] PCP - General Internal Medicine 12/05/16 documented as of this encounter
--- OUTSIDE RECORDS SUMMARY | 2025-01-15 14:05 | XMS_ITS | Encounter Summary ---
Author Organization [facility] Address [address] [place] [address] Phone Care Team Providers Care Proposition Player Name Role Phone Beni Nguyen MD Primary Care Provider [phone] Encounter Details Date Type Department Care Team (Late st Contact Info) Description 10/14/2024 Scanned Document [facility] [address] [place] [address] Scanning, Generic Provider Social History Tobacco Use Types Packs/Day Years [...] suspected to have Coronavirus/COVID-19? No / Unsure 10/11/2024 2:51 PM EST documented as of this encounter Plan of Treatment Upcoming Encounters Date Type Department Care Team (Late st Contact Info) Description 09/25/2025 2:10 PM EST Office Visit [facility] [address]03 [facility] [address] [place] [address] Juan C Hoover DO [address] [facility] 2, [address] [place] [address] documented as of this encounter Procedures Procedure Name Priority Date/Time Associated Diagnosis Comments OUTSIDE LAB SCAN 10/14/2024 documented in this encounter Results * OUTSIDE LAB SCAN (10/14/2024) Narrative 10/14/2024 Ordered by an unspecified provider. us Generic Provider Scanning OUTSIDE SCAN Final Result documented in this encounter Visit Diagnoses Not on filedocumented in this encounter Additional Health Concerns Assessment Noted Time A fall risk assessment has been complete d for the patient 09/24/2024 2:33 PM EST documented as of this encounter Care Teams Proposition Player Relationship Specialty Start Date End Date Beni Nguyen MD 112 [place] [address] PCP - General 05/18/23 documented as of this encounter
--- OUTSIDE RECORDS SUMMARY | 2025-01-15 14:05 | XMS_ITS | Encounter Summary ---
Author Organization [facility] Address [address] [place] [address] Care Team Providers Care Human Resource Officer Name Role Phone Beni Nguyen MD Primary Care Provider Beni Nguyen MD Unavailable [phone] Anastasia Rayo LPN Unavailable Unavailable Encounter Details Date Type Department Care Team (Latest Contact Info) Description 01/02/2025 Travel Social History Tobacco Use Types Packs/Day Years [...] often do you attend chur ch or protestant services? Never 03/17/2023 Do you belong to any clubs o r organizations such as religion groups, unions, fraternal or athletic groups, or [...] Recorded Patient Health Questionnaire-2 Score 0 12/05/2024 [facility] of Occupat ional Health - Occupational Stress [...] place to sleep or slept in a assisted (including now)? No 03/17/2023 Sex and Gender [...] Visit [facility] [address] [facility] 120 [place] [address] Real Og DPM 3006 [facility] 5 [place] [address] 05/05/2025 1:30 PM EDT Office Visit [facility] KRISTOPHER [address] [place] [address] Sandro Saunders DO [address] [place] [address] documented as of this encounter Visit Diagnoses Not on filedocumented in this encounter Care Teams Human Resource Officer Relationship Specialty Start Date End Date Beni Nguyen MD [address] [facility] 110 [place] [address] PCP - General Internal Medicine 01/02/23 Beni Nguyen MD [address] [facility] 110 [place] [address] PCP - ACO Reach 01/12/23 Anastasia Rayo LPN 11/08/24 documented as of this encounter
--- OUTSIDE RECORDS SUMMARY | 2025-01-15 14:05 | XMS_ITS | Encounter Summary ---
Author Organization [facility] Address [address] [place] [address] Care Team Providers Care Sack Repairer Name Role Phone Beni Nguyen MD Primary Care Provider [phone] Beni Nguyen MD Unavailable [phone] Esther Connolly RN Unavailable [phone] Anastasia Rayo LPN Unavailable Unavailable Encounter Details Date Type Department Care Team (Late st Contact Info) Description 10/31/2024 Abstract [facility] 112 [facility] [address] [place] [address] Beni Nguyen MD 112 [facility] 110 [place] [address] Social History Tobacco Use Types Packs/Day Years [...] How often do you attend chur or taoist services? Never 03/17/2023 Do you belong to any clubs o r organizations such as yazdanism groups, unions, fraternal or athletic groups, or [...] Date Recorded Patient Health Questionnaire-2 Score 0 10/29/2024 [facility] of Occupat ional Health - Occupational Stress [...] place to sleep or slept in a detention (including now)? No 03/17/2023 Sex and Gender Information Value Date Recorded Sex Assigned at Not on file Legal Sex Male 6:56 PM EDT Gender Identity Not on file Sexual Orientation Not on file documented as of this encounter Plan of Treatment Upcoming Encounters Date Type Department Care Team ([facility] st Contact Info) Description 01/30/2025 3:10 PM EDT Procedure Visit [facility] 112 [facility] 120 [place] [address] Real Og DPM 3006 [facility] 5 [place] [address] 05/05/2025 1:30 PM EDT Office Visit [facility] SUMMERS [address] [place] [address] Sandro Saunders DO [address] [place] [address] documented as of this encounter Visit Diagnoses Not on filedocumented in this encounter Care Teams Sack Repairer Relationship Specialty Start Date End Date Beni Nguyen MD [address] [facility] [address] [place] [address] PCP - General Internal Medicine 01/02/23 Beni Nguyen MD [address] [facility] [address] [place] [address] PCP - ACO Reach 01/12/23 Esthre Connolly, HEATHER Clinical Advocate Family Medicine 09/27/24 11/08/24 Anastasia Rayo LPN 11/08/24 documented as of this encounter
--- OUTSIDE RECORDS SUMMARY | 2025-01-15 14:05 | XMS_ITS | Encounter Summary ---
Author Organization [facility] Address [address] [place] [address] Phone Care Team Providers Care Enterprise Resource Analyst Name Role Phone Beni Nguyen MD Primary Care Provider [phone] Encounter Details Date Type Department Care Team (Late st Contact Info) Description 09/13/2024 Scanned Document [facility] [address] [place] [address] Scanning, Generic Provider Social History Tobacco Use Types Packs/Day Years Used Date Smoking Tobacco: Never Smokeless Tobacco: Never Alcohol Use Standard Drinks/Week Comments Not Currently 0 (1 standard drink = 0.6 oz [...] Description 09/25/2025 2:10 PM EST Office Visit [place] [address] [facility] [address] [place] [address] Juan C Hoover DO 703 [facility] 2, [address] [place] [address] documented as of this encounter Visit Diagnoses Not on filedocumented in this encounter Additional Health Concerns Assessment Noted Time A fall risk assessment has been complete d for the patient 09/20/2023 12:14 PM EST documented as of this encounter Care Teams Enterprise Resource Analyst Relationship Specialty Start Date End Date Beni Nguyen MD [address] [place] [address] PCP - General 05/18/23 documented as of this encounter
--- OUTSIDE RECORDS SUMMARY | 2025-01-15 14:05 | XMS_ITS | Encounter Summary ---
Author Organization [facility] Address [address] [place] [address] Care Team Providers Care Antique Clock Repairer Name Role Phone Beni Nguyen MD Primary Care Provider [phone] Beni Nguyen MD Unavailable [phone] Esther Connolly RN Unavailable [phone] Anastasia Rayo LPN Unavailable Unavailable Encounter Details Date Type Department Care Team (Late st Contact Info) Description 12/22/2023 Clinisync Result Encounter [facility] External Department Unsolicited Provider, Generic External Data Social History Tobacco Use Types Packs/Day Years Used Date Smoking Tobacco: Never Smokeless Tobacco: Never Alcohol Use Standard Drinks/Week Comments Yes 0 (1 standard drink = 0.6 oz pur e alcohol) Humiliation, Afraid, Rape, and Kick questionnair e [...] often do you attend chur ch or taoism services? Never 03/17/2023 Do you belong to any clubs o r organizations such as islam groups, unions, fraternal or athletic groups, or [...] Date Recorded Patient Health Questionnaire-2 Score 0 10/05/2023 [facility] of Occupat ional Health - Occupational [...] place to sleep or slept in a usp (including now)? No 03/17/2023 Sex and Gender Information Value Date Recorded Sex Assigned at Not on file Legal Sex Male 6:56 PM EDT Gender Identity Not on file Sexual Orientation Not on file documented as of this encounter Plan of Treatment Upcoming Encounters Date Type Department Care Team ([facility] st Contact Info) Description 01/30/2025 3:10 PM EDT Procedure Visit [facility] 112 [facility] 120 [place] [address] Real Og, DPMarcial [facility] 5 [place] [address] 05/05/2025 1:30 PM EDT Office Visit [facility] SUMMERS [address] [place] [address] Sandro Saunders DO [address] [place] [address] documented as of this encounter Procedures Procedure Name Priority Date/Time Associated Diagnosis Comments XR SACRUM COCCYX 2+ VIEWS 12/22/2023 2:30 PM EDT documented in this encounter Results * XR sacrum coccyx 2+ views (12/22/2023 2:30 PM EDT) Anatomical Region Laterality Modality Sacrum, Coccyx Radiographic Michelle ging 12/22/2023 2:30 PM EDT Narrative 12/22/2023 2:32 [place] [address] XRay Report Signed Patient: ANKUR REILLY MR#: [id number] : 1945 Acct:[id number] Age/Sex: 78 / M ADM Date: 12/22/23 Loc: RAD Attending Dr: Jadyn Wyman M.D. Ordering Physician: Jadyn Wyman M.D. Date of Service: 12/22/23 Procedure(s): XR sacrum coccyx min 2V Accession Number(s): [id number] cc: BENI NGUYEN ; Jadyn Wyman M.D. [place] [address] Patient Name: ANKUR REILLY MRN: [id number] date: 1945 Sex: M Assigned Patient Location: [facility] Current Patient Location: [facility] Accession/Order Number: [id number] Exam Date: 12/22/2023 13:20 Report Date: 12/22/2023 14:30 At the request of: JADYN WYMAN Procedure: XR sacrum coccyx min 2V PROCEDURE: XR sacrum coccyx min 2V COMPARISON: None. HISTORY: sacroilitis FINDINGS: SACRUM: No fracture, disruption of the sacral ala line, or cortical irregularity. COCCYX: No fracture or suspicious alignment. SOFT TISSUES: No widening of the sacroiliac joints. No radiopaque foreign body. OTHER: Degenerative changes of the visualized lumbar spine. Mild bilateral hip osteoarthropathy XR/XR sacrum coccyx min 2V IMPRESSION: Degenerative changes of the lumbar spine Electronically authenticated by: JORDAN RUTLEDGE Date: 12/22/2023 14:30 Dictated By: Jordan Rutledge M.D. Signed By: 12/22/23 1432 DD/ 1430 TD/TT: Editor Book: Procedure Note Radiology, Radiologist, - 12/22/2023 [place] [address] XRay Report Signed Patient: ANKUR REILLY AMR#: [id number] : 1945cct:[id number] Age/Sex: 78 / MADM Date: 12/22/23 Loc: RAD Attending Dr: Jadyn Wyman M.D. Ordering Physician: Jadyn Wyman M.D. Date of Service: 12/22/23 Procedure(s): XR sacrum coccyx min 2V Accession Number(s): [id number] cc: BENI NGUYEN ; Jadyn Wyman M.D. [place] [address] Patient Name: ANKUR REILLY MRN: [id number] date: 1945 Sex: M Assigned Patient Location: [facility] Current Patient Location: [facility] Accession/Order Number: [id number] Exam Date: 12/22/2023 13:20 Report Date: 12/22/2023 14:30 At the request of: JADYN WYMAN Procedure: XR sacrum coccyx min 2V PROCEDURE: XR sacrum coccyx min 2V COMPARISON: None. HISTORY: sacroilitis FINDINGS: SACRUM: No fracture, disruption of the sacral ala line, or cortical irregularity. COCCYX: No fracture or suspicious alignment. SOFT TISSUES: No widening of the sacroiliac joints. No radiopaque foreign body. OTHER: Degenerative changes of the visualized lumbar spine. Mild bilateralhip osteoarthropathy XR/XR sacrum coccyx min 2V IMPRESSION: Degenerative changes of the lumbar spine Electronically authenticated by: JORDAN RUTLEDGE Date: 12/22/2023 14:30 Dictated By: Jordan Rutledge M.D. Signed By:12/22/23 1432 DD/ 1430 TD/TT: Editor Book: us Generic External Data Provider IMG XR PROCEDURES Final Result documented in this encounter Visit Diagnoses Not on filedocumented in this encounter Care Teams Antique Clock Repairer Relationship Specialty Start Date End Date Beni Nguyen MD [address] [place] [address] PCP - General Internal Medicine 01/02/23 Beni Nguyen MD 112 [facility] 110 [place] [address] PCP - ACO Reach 01/12/23 Esther Connolly, RN Clinical Advocate Family Medicine 09/27/24 11/08/24 Anastasia Rayo LPN 11/08/24 documented as of this encounter
--- OUTSIDE RECORDS SUMMARY | 2025-01-15 14:05 | XMS_ITS | Encounter Summary ---
Author Organization [facility] Address [address] [place] [address] Care Team Providers Care Cyanide Pot Hardener Name Role Phone Beni Nguyen MD Primary Care Provider Beni Nguyen MD Unavailable [phone] Esther Connolly RN Unavailable [phone] Anastasia Rayo LPN Unavailable Unavailable Encounter Details Date Type Department Care Team (Late st Contact Info) Description 05/11/2023 Abstract [facility] FM 112 [facility] 110 [place] [address] Beni Nguyen MD 112 [facility] 110 [place] [address] Social History Tobacco Use Types Packs/Day Years [...] often do you attend chur ch or quaker services? Never 03/17/2023 Do you belong to any clubs o r organizations such as mandaen groups, unions, fraternal or athletic groups, or school groups? No 03/17/2023 How often do you attend meet ings of the clubs or organizations you belong to? Never 03/17/2023 Are you , , di vorced, , never , or living with a partner? 03/17/2023 AUDIT-C Answer Date Recorded Q1: How often do you have a drink containing alc ohol? Monthly or less 03/17/2023 Q2: How many drinks containi ng alcohol do you have on a typical day when you are drinking? 1 or 2 03/17/2023 Q3: How often do you have si x or more drinks on one occasion? Never 03/17/2023 Overall Financial Resource Strain (CARDIA) Answe r Date Recorded How hard is it for you to pa y for the very basics like food, housing, medical care, and heating? Not hard at all 03/17/2023 [facility] of Occupat ional Health - Occupational [...] place to sleep or slept in a mcfp (including now)? No 03/17/2023 Sex and Gender Information Value Date Recorded Sex Assigned at Not on file Legal Sex Male 6:56 PM EDT Gender Identity Not on file Sexual Orientation Not on file documented as of this encounter Plan of Treatment Upcoming Encounters Date Type Department Care Team ([facility] st Contact Info) Description 01/30/2025 3:10 PM EDT Procedure Visit [facility] [address] [facility] 120 [place] [address] Real Og DPM [address] [facility] 5 [place] [address] 05/05/2025 1:30 PM EDT Office Visit [facility]ANDELL SUMMERS [address] [place] [address] Sandro Saunders DO [address] [place] [address] documented as of this encounter Visit Diagnoses Not on filedocumented in this encounter Care Teams Cyanide Pot Hardener Relationship Specialty Start Date End Date Beni Nguyen MD [address] [place] [address] PCP - General Internal Medicine 01/02/23 Beni Nguyen MD 112 [facility] 110 [place] [address] PCP - ACO Reach 01/12/23 Esther Connolly, HEATHER Clinical Advocate Family Medicine 09/27/24 11/08/24 Anastasia Rayo LPN 11/08/24 documented as of this encounter
--- OUTSIDE RECORDS SUMMARY | 2025-01-15 14:05 | XMS_ITS | Encounter Summary ---
Author Organization [facility] Address [address] [place] [address] Care Team Providers Care Tube Drawing Supervisor Name Role Phone Beni Nguyen MD Primary Care Provider [phone] Beni Nguyen MD Unavailable [phone] Esther Connolly RN Unavailable [phone] Anastasia Rayo LPN Unavailable Unavailable Encounter Details Date Type Department Care Team (Late st Contact Info) Description 11/05/2024 Abstract [facility] [address] [facility] 110 [place] [address] Beni Nguyen MD 112 [facility] 110 [place] [address] Social History Tobacco Use Types Packs/Day Years [...] How often do you attend chur or christianity services? Never 03/17/2023 Do you belong to any clubs o r organizations such as hoahaoism groups, unions, fraternal or athletic groups, or [...] Recorded Patient Health Questionnaire-2 Score 0 10/29/2024 [facility] of Occupat ional Health - Occupational Stress [...] Upcoming Encounters Date Type Department Care Team ([facility] st Contact Info) Description 01/30/2025 3:10 PM EDT Procedure Visit [facility] 112 [facility] 120 [place] [address] Real Og DPM 3006 [facility] 5 [place] [address] 05/05/2025 1:30 PM EDT Office Visit [facility]DELL SUMMERS [address] [place] [address] Sandro Saunders DO [address] [place] [address] documented as of this encounter Visit Diagnoses Not on filedocumented in this encounter Care Teams Tube Drawing Supervisor Relationship Specialty Start Date End Date Beni Nguyen MD [address] [facility] 110 [place] [address] PCP - General Internal Medicine 01/02/23 Beni Nguyen MD [address] [facility] [address] [place] [address] PCP - ACO Reach 01/12/23 Esther Connolly, HEATHER Clinical Advocate Family Medicine 09/27/24 11/08/24 Anastasia Rayo LPN 11/08/24 documented as of this encounter
--- OUTSIDE RECORDS SUMMARY | 2025-01-15 14:05 | XMS_ITS | Encounter Summary ---
Author Organization [facility] Address [address] [place] [address] Phone Care Team Providers Care Language Teacher Name Role Phone Beni Nguyen MD Primary Care Provider [phone] Encounter Details Date Type Department Care Team (Late st Contact Info) Description 06/10/2023 Scanned Document [facility] [address] [place] [phone] Scanning, Generic Provider Social History Tobacco Use [...] Description 09/25/2025 2:10 PM EST Office Visit [facility] [address] [facility] [address] [place] [address] Juan C Hoover, 703 [facility] 2, [address] [place], [place] [id number] documented as of this encounter Visit Diagnoses Not on filedocumented in this encounter Care Teams Language Teacher Relationship Specialty Start Date End Date Beni Nguyen MD [address] [facility] 110 [place] [address] PCP - General 05/18/23 documented as of this encounter
--- OUTSIDE RECORDS SUMMARY | 2025-01-15 14:05 | XMS_ITS | Encounter Summary ---
Author Organization [facility] Address [address] [place] [place] [address] Care Team Providers Care Pony Ride Operator Name Role Phone Beni Nguyen MD Primary Care Provider [phone] Beni Nguyen MD Unavailable [phone] Anastasia Rayo LPN Unavailable Unavailable Encounter Details Date Type Department Care Team ([facility] st Contact Info) Description 01/02/2025 Bamboo flowsheet [facility] 112 [facility] 120 [place] [address] Real Og, DPMarcial 3003 [facility] 5 [place] [address] Social History Tobacco Use Types Packs/Day Years [...] any clubs o r organizations such as uatsdin groups, unions, fraternal or athletic groups, or [...] Recorded Patient Health Questionnaire-2 Score 0 12/05/2024 [facility] of Occupat ional Health - [...] place to sleep or slept in a [place] health care facility (including now)? No 03/17/2023 Sex and Gender Information Value Date Recorded Sex Assigned at Not on file Legal Sex Male 6:56 PM EDT Gender Identity Not on file Sexual Orientation Not on file documented as of this encounter Plan of Treatment Upcoming Encounters Date Type Department Care Team ([facility] Contact Info) Description 01/30/2025 3:10 PM EDT Procedure Visit [facility] 112 [facility] 120 [place] [address] Real Og DPM 3006 [facility] 5 [place] [address] 05/05/2025 1:30 PM EDT Office Visit [facility]ANDELL KRISTOPHER [address] [place] [address] Sandro Saunders DO [address] [place] [address] documented as of this encounter Visit Diagnoses Not on filedocumented in this encounter Care Teams Pony Ride Operator Relationship Specialty Start Date End Date Beni Nguyen MD [address] [facility] 110 [place] [address] PCP - General Internal Medicine 01/02/23 Beni Nguyen MD [address] [facility] 110 [place] [address] PCP - ACO Reach 01/12/23 Anastasia Rayo LPN 11/08/24 documented as of this encounter
--- OUTSIDE RECORDS SUMMARY | 2025-01-15 14:05 | XMS_ITS | Encounter Summary ---
Author Organization [facility] Address [address] [place] [place] [address] Care Team Providers Care Natural Gas Inspector Name Role Phone Beni Nguyen MD Primary Care Provider [phone] Beni Nguyen MD Unavailable [phone] Anastasia Rayo LPN Unavailable Unavailable Encounter Details Date Type Department Care Team (Late st Contact Info) Description 01/06/[address] [facility] [address] [place] [address] Sandro Saunders DO [address] [place] [address] Social History Tobacco Use Types Packs/Day Years [...] How often do you attend chur or gnosticist services? Never 03/17/2023 Do you belong to [...] Recorded Patient Health Questionnaire-2 Score 0 12/05/2024 [facility] of Occupat ional Health - [...] place to sleep or slept in a fci (including now)? No 03/17/2023 Sex and Gender Information Value Date Recorded Sex Assigned at Not on file Legal Sex Male 6:56 PM EDT Gender Identity Not on file Sexual Orientation Not on file documented as of this encounter Plan of Treatment Upcoming Encounters Date Type Department Care Team ([facility] Contact Info) Description 01/30/2025 3:10 PM EDT Procedure Visit [facility] [address] [facility] 120 [place] [address] Real Og DPM 3006 [facility] 5 [place] [address] 05/05/2025 1:30 PM EDT Office Visit RANDELL KRISTOPHER [address] [place] [address] Sandro Saunders DO [address] [place] [address] documented as of this encounter Visit Diagnoses Not on filedocumented in this encounter Care Teams Natural Gas Inspector Relationship Specialty Start Date End Date Beni Nguyen MD 112 [facility] 110 [place] [address] PCP - General Internal Medicine 01/02/23 Beni Nguyen MD [address] [facility] 110 [place] [address] PCP - ACO Reach 01/12/23 Anastasia Rayo LPN 11/08/24 documented as of this encounter
--- OUTSIDE RECORDS SUMMARY | 2025-01-15 14:05 | XMS_ITS | Encounter Summary ---
Author Organization [facility] Address [address] [place] [address] Phone Care Team Providers Care Health Promotion Educator Name Role Phone Beni Nguyen MD Primary Care Provider [phone] Encounter Details Date Type Department Care Team (Late st Contact Info) Description 05/21/2023 Scanned Document [facility] [address] [place] [phone] Scanning, Generic Provider Social History Tobacco Use [...] Description 09/25/2025 2:10 PM EST Office Visit [facility] 703 [facility] [address] [place] [address] Juan C Hoover, 703 [facility] 2, [address] [place], [place] [phone] documented as of this encounter Visit Diagnoses Not on filedocumented in this encounter Care Teams Health Promotion Educator Relationship Specialty Start Date End Date Beni Nguyen MD [address] [facility] 110 [place] [address] PCP - General 05/18/23 documented as of this encounter
--- OUTSIDE RECORDS SUMMARY | 2025-01-15 14:05 | XMS_ITS | Clinical Summary ---
Author Organization [facility] Address [address] [place] [address] Care Team Providers Care Photographer'S Assistant Name Role Phone Beni Nguyen MD Primary Care Provider [phone] Allergies No known active allergies Medications loratadine (CLARITIN REDITABS) 10 MG dissolvable tablet Take by mouth 02/17/2022 Active [place]-3 Fatty Acids (FISH OIL) 1200 MG CAPS Take 1,200 mg by mouth in the morning and at bedtime 06/08/2022 Active hydrALAZINE (APRESOLINE) 50 MG tablet Take 50 mg by mouth in the morning and at bedtime 12/07/2021 Active Multiple Vitamin (MULTI-VITAMINS PO) Take by mouth daily 12/07/2021 Active potassium chloride (MICRO-K) 10 MEQ extended release capsule Take 10 mEq by mouth daily 06/08/2022 Active apixaban (ELIQUIS) 5 MG TABS tablet Take 5 mg by mouth in the morning and at bedtime 06/08/2019 Active baclofen (LIORESAL) 10 MG tablet Take 10 mg by mouth 3 times daily 07/10/2019 Active furosemide (LASIX) 20 MG tablet Take 20 mg by mouth daily 12/07/2021 Active gabapentin (NEURONTIN) 300 MG capsule Take 300 mg by mouth daily. 07/05/2019 Active nebivolol (BYSTOLIC) 10 MG tablet Take 10 mg by mouth daily 12/07/2021 Active pyridostigmine (MESTINON) 60 MG tablet Take 60 mg by mouth 4 times daily 04/05/2017 Active simvastatin (ZOCOR) 40 MG tablet Take 40 mg by mouth nightly 03/04/2017 Active triamterene-hydr oCHLOROthiazide (MAXZIDE-25) 37.5-25 MG per tablet Take 1 tablet by mouth daily Active predniSONE (DELTASONE) 10 MG tablet Take 10 mg by mouth daily Active lisinopril (PRINIVIL;ZESTRI L) 20 MG tablet Take 20 mg by mouth daily Active Active Problems Problem Noted Date Diagnosed Date CRP elevated 10/17/2022 Bladder cancer 10/16/2022 Gross hematuria 10/16/2022 Malaise and fatigue 10/16/2022 Myasthenia gravis 10/16/2022 JAMISON (obstructive sleep apnea) 10/16/2022 Current chronic use of systemic steroids 023 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, without long-term current use of insulin 10/16/2022 Morbid obesity 10/16/2022 Hypokalemia 10/16/2022 Acute retention of urine 10/16/2022 Hypomagnesemia 10/16/2022 Hypocalcemia 10/16/2022 Resolved Problems Problem Noted Date Diagnosed Date Resolved Date Elevated procalcitonin 10/17/202210/18 Bandemia 10/17/2022 10/18/2022 SIRS (systemic inflammatory response syndrome) 10/17/2022 10/18/2022 Acute weakness 10/16/2022 10/18/2022 Hyponatremia 10/16/2022 10/18/2022 Fever, unspecified 10/15/2022 Social History Tobacco Use Types Packs/Day Years Used Date Smoking Tobacco: Never Smokeless Tobacco: Never Tobacco Cessation:Counseling Given: Not Answered Sex and Gender Information Value Date Recorded Sex Assigned at Not on file Legal Sex Male 6:49 PM EST Gender Identity Not on file Sexual Orientation Not on file Last Filed Vital Signs Vital Sign Reading Time Taken Comments Blood Pressure 150/81 10/18/2022 8:30 AM EST Pulse 75 10/18/2022 8:30 AM EST Temperature 36.4 C (97.6 F) 10/18/2022 8:30 AM EST Respiratory Rate 20 10/18/2022 8:30 AM EST Oxygen Saturation 95% 10/18/2022 8:30 AM EST Inhaled Oxygen Concentration - - Weight 144.4 kg (318 lb 7 oz) 10/17/2022 6:00 AM EST Height 172.7 cm (5' 8 ) 10/15/2022 7:51 PM EST Body Mass Index 48.42 10/15/2022 7:51 PM EST Plan of Treatment Health Maintenance Due Date Last Done Comments DTaP/Tdap/Td vaccine (1 - Tdap) 1962 Respiratory Syncytial Virus (RSV) or age 60 yrs+ (1 - 1-dose 75+ series) 2018 COVID-19 Vaccine ( season) 2024 05/24/2021, 11/09/2020, 10/18/2020 Flu vaccine (Season Ended) 03/21/202505/19, 05/06/2020, 05/27/2019, Additional history exists Polio vaccine Aged Out No longer doom moss based on patient's age to complete this topic Insurance MEDICARE [employer] MEDICARE SUPP Advance Directives * Full Code (Latest Code Status on File) Date Activated Date Inactivated Comments 10/15/2022 7:20 PM 10/18/2022 5:43 PM Care Teams Photographer'S Assistant Relationship Specialty Start Date End Date Beni Nguyen MD [address] [place] [address] PCP - General Internal Medicine 10/14/22
--- OUTSIDE RECORDS SUMMARY | 2025-01-15 14:05 | XMS_ITS | Encounter Summary ---
Author Organization [facility] Address [address] [place] [address] Care Team Providers Care Bible Reader Name Role Phone Beni Nguyen MD Primary Care Provider [phone] Beni Nguyen MD Unavailable [phone] Esther Connolly RN Unavailable [phone] Anastasia Rayo LPN Unavailable Unavailable Encounter Details Date Type Department Care Team (Late st Contact Info) Description 05/11/2023 Abstract [facility] [address] [facility] 110 [place] [address] Beni Nguyen MD 112 [facility] 110 [place] [address] Social History Tobacco Use Types Packs/Day Years [...] often do you attend chur ch or uatsdin services? Never 03/17/2023 Do you belong to any clubs o r organizations such as adventist groups, unions, fraternal or athletic groups, or [...] and heating? Not hard at all 03/17/2023 [facility] of Occupat ional Health - Occupational [...] place to sleep or slept in a care home (including now)? No 03/17/2023 Sex and Gender Information Value Date Recorded Sex Assigned at Not on file Legal Sex Male 6:56 PM EDT Gender Identity Not on file Sexual Orientation Not on file documented as of this encounter Plan of Treatment Upcoming Encounters Date Type Department Care Team ([facility] st Contact Info) Description 01/30/2025 3:10 PM EDT Procedure Visit [facility] 112 [facility] 120 [place] [address] Real Og DPM 3006 [facility] 5 [place] [address] 05/05/2025 1:30 PM EDT Office Visit [facility]AN[facility]LL SUMMERS [address] [place] [address] Sandro Saunders DO [address] [place] [address] documented as of this encounter Visit Diagnoses Not on filedocumented in this encounter Care Teams Bible Reader Relationship Specialty Start Date End Date Beni Nguyen MD [address] [place] [address] PCP - General Internal Medicine 01/02/23 Beni Nguyen MD 112 [facility] 110 [place] [address] PCP - ACO Reach 01/12/23 Esther Connolly, HEATHER Clinical Advocate Family Medicine 09/27/24 11/08/24 Anastasia Rayo LPN 11/08/24 documented as of this encounter
--- OUTSIDE RECORDS SUMMARY | 2025-01-15 14:05 | XMS_ITS | Encounter Summary ---
Author Organization [facility] Address [address] [place] [address] Care Team Providers Care Intake Worker Name Role Phone Beni Nguyen MD Primary Care Provider [phone] Beni Nguyen MD Unavailable [phone] Esther Connolly RN Unavailable [phone] Anastasia Rayo LPN Unavailable Unavailable Encounter Details Date Type Department Care Team (Late st Contact Info) Description 05/11/2023 Orders Only [facility] [address] [facility] [address] [place] [address] A, Unknown Practice [address] [place], [place] [address] Social History Tobacco Use Types Packs/Day Years [...] often do you attend chur ch or confucianism services? Never 03/17/2023 Do you belong to any clubs o r organizations such as zoroastrianism groups, unions, fraternal or athletic groups, or [...] and heating? Not hard at all 03/17/2023 [facility] of Occupat ional Health - Occupational [...] Upcoming Encounters Date Type Department Care Team ([facility] st Contact Info) Description 01/30/2025 3:10 PM EDT Procedure Visit [facility] 112 [facility] 120 [place] [address] Real Og DPM 3006 [facility] 5 [place] [address] 05/05/2025 1:30 PM EDT Office Visit RANDELL KRISTOPHER [address] [place] [address] Sandro Saunders DO [address] [place] [address] documented as of this encounter Procedures Procedure Name Priority Date/Time Associated Diagnosis Comments XR CHEST 1 VIEW Routine 05/10/2023 11:43 AM EDT documented in this encounter Results * XR chest 1 view (05/10/2023 11:43 AM EDT) Anatomical Region Laterality Modality Chest Radiographic Michelle ging us Unknown Practice A IMG XR PROCEDURES Final Resul t documented in this encounter Visit Diagnoses Not on filedocumented in this encounter Care Teams Intake Worker Relationship Specialty Start Date End Date Beni Nguyen MD [address] [facility] 110 [place] [address] PCP - General Internal Medicine 01/02/23 Beni Nguyen MD [address] [facility] 110 [place] [address] PCP - ACO Reach 01/12/23 Esther Connolly, RN Clinical Advocate Family Medicine 09/27/24 11/08/24 Anastasia Rayo LPN 11/08/24 documented as of this encounter
--- OUTSIDE RECORDS SUMMARY | 2025-01-15 14:05 | XMS_ITS | Encounter Summary ---
Author Organization [facility] Address [address] [place] [address] Care Team Providers Care Claims Coordinator Name Role Phone Beni Nguyen MD Primary Care Provider [phone] Beni Nguyen MD Unavailable [phone] Esther Connolly RN Unavailable [phone] Anastasia Rayo LPN Unavailable Unavailable Encounter Details Date Type Department Care Team (Late st Contact Info) Description 05/11/2023 Abstract [facility] [address] [facility] [address] [place] [address] Beni Nguyen MD 112 [facility] 110 [place] [address] Social History Tobacco Use Types Packs/Day Years [...] often do you attend chur ch or mu-ism services? Never 03/17/2023 Do you belong to any clubs o r organizations such as sikh groups, unions, fraternal or athletic groups, or [...] and heating? Not hard at all 03/17/2023 [facility] of Occupat ional Health - Occupational Stress [...] to sleep or slept in a senior living (including now)? No 03/17/2023 Sex and Gender Information Value Date Recorded Sex Assigned at Not on file Legal Sex Male 6:56 PM EDT Gender Identity Not on file Sexual Orientation Not on file documented as of this encounter Plan of Treatment Upcoming Encounters Date Type Department Care Team ([facility] st Contact Info) Description 01/30/2025 3:10 PM EDT Procedure Visit [facility] 112 [facility] 120 [place] [address] Real Og DPM 3006 [facility] 5 [place] [address] 05/05/2025 1:30 PM EDT Office Visit RANDELL SUMMERS [address] [place] [address] Sandro Saunders DO [address] [place] [address] documented as of this encounter Visit Diagnoses Not on filedocumented in this encounter Care Teams Claims Coordinator Relationship Specialty Start Date End Date Beni Nguyen MD [address] [place] [address] PCP - General Internal Medicine 01/02/23 Beni Nguyen MD 112 [facility] 110 [place] [address] PCP - ACO Reach 01/12/23 Esther Connolly, HEATHER Clinical Advocate Family Medicine 09/27/24 11/08/24 Anastasia Rayo LPN 11/08/24 documented as of this encounter
--- OUTSIDE RECORDS SUMMARY | 2025-01-15 14:05 | XMS_ITS | Encounter Summary ---
Author Organization [facility] Address [address] [place] [address] Care Team Providers Care Chip Mixer Name Role Phone Beni Nguyen MD Primary Care Provider [phone] Beni Nguyen MD Unavailable [phone] Anastasia Rayo LPN Unavailable Unavailable Encounter Details Date Type Department Care Team (Late st Contact Info) Description 01/08/2025 Abstract [facility] 112 [facility] 110 [place] [address] Beni Nguyen MD [address] [facility] 110 [place] [address] Social History Tobacco Use Types Packs/Day Years [...] How often do you attend chur or hinduism services? Never 03/17/2023 Do you belong to any clubs o r organizations such as sabianism groups, unions, fraternal or athletic groups, or [...] Patient Health Questionnaire-2 Score 0 12/05/2024 [facility] of Occupat ionoh Health - Occupational Stress Questionnaire Answer Date [...] place to sleep or slept in a nursing home (including now)? No 03/17/2023 Sex and Gender Information Value Date Recorded Sex Assigned at Not on file Legal Sex Male 6:56 PM EDT Gender Identity Not on file Sexual Orientation Not on file documented as of this encounter Plan of Treatment Upcoming Encounters Date Type Department Care Team ([facility] [address] Contact Info) Description 01/30/2025 3:10 PM EDT Procedure Visit [facility] 112 [facility] 120 [place] [address] Real Og DPM 3006 [facility] 5 [place] [address] 05/05/2025 1:30 PM EDT Office Visit RANDELL SUMMERS [address] [place] [address] Sandro Saunders DO [address] [place] [address] documented as of this encounter Visit Diagnoses Not on filedocumented in this encounter Care Teams Chip Mixer Relationship Specialty Start Date End Date Beni Nguyen MD [address] [facility] 110 [place] [address] PCP - General Internal Medicine 01/02/23 Beni Nguyen MD [address] [facility] [address] [place] [address] PCP - ACO Reach 01/12/23 Anastasia Rayo LPN 11/08/24 documented as of this encounter
--- OUTSIDE RECORDS SUMMARY | 2025-01-15 14:05 | XMS_ITS | Encounter Summary ---
Author Organization [facility] Address [address] [place] [address] Care Team Providers Care Information Broker Name Role Phone Beni Nguyen MD Primary Care Provider [phone] Beni Nguyen MD Unavailable [phone] Esther Connolly RN Unavailable [phone] Anastasia Rayo LPN Unavailable Unavailable Encounter Details Date Type Department Care Team (Late st Contact Info) Description 10/31/2024 Abstract [facility] [address] [facility] [address] [place] [address] Beni Nguyen MD 112 [facility] 110 [place] [address] Social History Tobacco Use Types Packs/Day Years [...] How often do you attend chur or buddhism services? Never 03/17/2023 Do you belong to any clubs o r organizations such as holiness groups, unions, fraternal or athletic groups, or [...] Recorded Patient Health Questionnaire-2 Score 0 10/29/2024 [facility] of Occupat ional [...] place to sleep or slept in a fpc (including now)? No 03/17/2023 Sex and Gender Information Value Date Recorded Sex Assigned at Not on file Legal Sex Male 6:56 PM EDT Gender Identity Not on file Sexual Orientation Not on file documented as of this encounter Plan of Treatment Upcoming Encounters Date Type Department Care Team ([facility] st Contact Info) Description 01/30/2025 3:10 PM EDT Procedure Visit [facility] 112 [facility] [address] [place] [address] Real Og DPM 3006 [facility] 5 [place] [address] 05/05/2025 1:30 PM EDT Office Visit [facility] [address] [place] [address] Sandro Saunders DO [address] [place] [address] documented as of this encounter Visit Diagnoses Not on filedocumented in this encounter Care Teams Information Broker Relationship Specialty Start Date End Date Beni Nguyen MD [address] [facility] [address] [place] [address] PCP - General Internal Medicine 01/02/23 Beni Nguyen MD [address] [facility] [address] [place] [address] PCP - ACO Reach 01/12/23 Esther Connolly, HEATHER Clinical Advocate Family Medicine 09/27/24 11/08/24 Anastasia Rayo LPN 11/08/24 documented as of this encounter
--- OUTSIDE RECORDS SUMMARY | 2025-01-15 14:05 | XMS_ITS | Encounter Summary ---
Author Organization [facility] Address [address] [place] [address] Care Team Providers Care Inspector Casing Name Role Phone Beni Nguyen MD Primary Care Provider [phone] Beni Nguyen MD Unavailable [phone] Esther Connolly RN Unavailable [phone] Anastasia Rayo LPN Unavailable Unavailable Encounter Details Date Type Department Care Team (Late st Contact Info) Description 05/11/2023 Abstract [facility] [address] [facility] [address] [place] [address] Beni Nguyen MD 112 [facility] 110 [place] [address] Social History Tobacco Use Types Packs/Day Years [...] often do you attend chur ch or anabaptist services? Never 03/17/2023 Do you belong to any clubs o r organizations such as druze groups, unions, fraternal or athletic groups, or [...] and heating? Not hard at all 03/17/2023 [facility] of Occupat ional Health - Occupational Stress [...] Upcoming Encounters Date Type Department Care Team ([facility] st Contact Info) Description 01/30/2025 3:10 PM EDT Procedure Visit [facility] 112 [facility] 120 [place] [address] Real Og DPM 3006 [facility] 5 [place] [address] 05/05/2025 1:30 PM EDT Office Visit [facility] [address] [place] [address] Sandro Saunders DO [address] [place] [address] documented as of this encounter Visit Diagnoses Not on filedocumented in this encounter Care Teams Inspector Casing Relationship Specialty Start Date End Date Beni Nguyen MD [address] [place] [address] PCP - General Internal Medicine 01/02/23 Beni Nguyen MD 112 [facility] 110 [place] [address] PCP - ACO Reach 01/12/23 Esther Connolly, HEATHER Clinical Advocate Family Medicine 09/27/24 11/08/24 Anastasia Rayo LPN 11/08/24 documented as of this encounter
--- OUTSIDE RECORDS SUMMARY | 2025-01-15 14:05 | XMS_ITS | Clinical Summary ---
Author Organization [employer] Address [id number] [address] [place] [address] Care Team Providers Care Personnel And Payroll Technician Name Role Phone Beni Nguyen MD Primary Care Provider [phone] Allergies No known active allergies Medications omega-3 fatty acids-fish oil (FISH OIL) 360-1,200 mg capsule Fish Oil 360 mg-1,200 mg capsule Take 1 capsule twice a day by oral route. Active predniSONE (DELTASONE) 10 mg tablet 9 Active pyridostigmine (MESTINON) 60 mg tablet Take 60 mg by mouth 4 (four) times a day. 7 Active simvastatin (ZOCOR) 40 mg tablet daily. 7 Active triamterene-hyd roCHLOROthiazid (MAXZIDE-25) 37.5-25 mg per tablet daily. 7 Active lisinopriL (PRINIVIL,ZESTR IL) 20 mg tablet daily. 7 Active hydrALAZINE (APRESOLINE) 50 mg tablet 9 Active gabapentin (NEURONTIN) 300 mg capsule Take 300 mg by mouth. 9 Active baclofen (LIORESAL) 10 mg tablet 9 Active apixaban (ELIQUIS) 5 mg tablet 9 Active amLODIPine (NORVASC) 5 mg tablet 9 Active OMEGA-3 FATTY ACIDS-EPA ORAL Take by mouth. Active multivit with minerals/lutein (MULTIVITAMIN 50 PLUS ORAL) multivitamin Act alex Active Problems No known active problems Family History Medical History Relation Name Comments Diabetes Maternal Grandmother Relation Name Status Comments Maternal Grandmother Social History Tobacco Use Types Packs/Day Years Used Date Smoking Tobacco: Never Smokeless Tobacco: Never Alcohol Use Standard Drinks/Week Comments Yes 0 (1 standard drink = 0.6 oz pur e alcohol) rare Childcare Answer Date Recorded Childcare Unknown 10/02/2019 Employment Answer Date Recorded Employment Unknown 10/02/2019 Purpose - Life Answer Date Recorded Purpose and direction in life Unknown Sex and Gender Information Value Date Recorded Sex Assigned at Not on file Legal Sex Male 3:33 PM EST Gender Identity Not on file Sexual Orientation Not on file Last Filed Vital Signs Vital Sign Reading Time Taken Comments Blood Pressure 142/86 10/14/2019 1:48 PM EST Pulse - - Temperature - - Respiratory Rate - - Oxygen Saturation - - Inhaled Oxygen Concentration - - Weight 153.3 kg (338 lb) 10/14/2019 1:48 PM EST Height 177.8 cm (5' 10 ) 10/14/2019 1:48 PM EST Body Mass Index 48.5 10/14/2019 1:48 PM EST Plan of Treatment Health Maintenance Due Date Last Done Comments Depression Screening 1955 Tobacco Screening 1957 DTaP,Tdap and Td Vaccines (1 - Tdap) 1962 Zoster (Shingles) Vaccine (1 of 2) 1993 Fall Risk Screening 2008 Influenza Vaccine 04/21/2025 Medical Devices Not on file Insurance MEDICARE [facility] Care Teams Personnel And Payroll Technician Relationship Specialty Start Date End Date Beni Nguyen MD 112 [facility] 110 [place] [address] PCP - General Internal Medicine 10/02/19
--- OUTSIDE RECORDS SUMMARY | 2025-01-15 14:05 | XMS_ITS | Encounter Summary ---
Author Organization [facility] Address [address] [place] [address] Care Team Providers Care Hospitality Host Name Role Phone Beni Nguyen MD Primary Care Provider [phone] Beni Nguyen MD Unavailable [phone] Esther Connolly RN Unavailable [phone] Anastasia Rayo LPN Unavailable Unavailable Encounter Details Date Type Department Care Team (Late st Contact Info) Description 05/11/2023 Abstract [facility] [address] [facility] [address] [place] [address] Beni Nguyen MD 112 [facility] 110 [place] [address] Social History Tobacco Use Types Packs/Day Years [...] often do you attend chur ch or hindu services? Never 03/17/2023 Do you belong to any clubs o r organizations such as latter-day groups, unions, fraternal or athletic groups, or [...] and heating? Not hard at all 03/17/2023 [facility] of Occupat ional Health - Occupational [...] place to sleep or slept in a halfway (including now)? No 03/17/2023 Sex and Gender Information Value Date Recorded Sex Assigned at Not on file Legal Sex Male 6:56 PM EDT Gender Identity Not on file Sexual Orientation Not on file documented as of this encounter Plan of Treatment Upcoming Encounters Date Type Department Care Team ([facility] st Contact Info) Description 01/30/2025 3:10 PM EDT Procedure Visit [facility] 112 [facility] 120 [place] [address] Real Og DPM 3006 [facility] 5 [place] [address] 05/05/2025 1:30 PM EDT Office Visit [facility] [address] [place] [address] Sandro Saunders DO [address] [place] [address] documented as of this encounter Visit Diagnoses Not on filedocumented in this encounter Care Teams Hospitality Host Relationship Specialty Start Date End Date Beni Nguyen MD [address] [place] [address] PCP - General Internal Medicine 01/02/23 Beni Nguyen MD 112 [facility] 110 [place] [address] PCP - ACO Reach 01/12/23 Esther Connolly, HEATHER Clinical Advocate Family Medicine 09/27/24 11/08/24 Anastasia Rayo LPN 11/08/24 documented as of this encounter
--- OUTSIDE RECORDS SUMMARY | 2025-01-15 14:05 | XMS_ITS | Encounter Summary ---
Author Organization [facility] Address [address] [place] [address] Care Team Providers Care Presiding Steward Name Role Phone Beni Nguyen MD Primary Care Provider [phone] Beni Nguyen MD Unavailable [phone] Esther Connolly RN Unavailable [phone] Anastasia Rayo LPN Unavailable Unavailable Encounter [...] often do you attend chur ch or christianity services? Never 03/17/2023 Do you belong to any clubs o r organizations such as anabaptist groups, unions, fraternal or athletic groups, or [...] Recorded Patient Health Questionnaire-2 Score 0 10/05/2023 [facility] of Occupat ional Health - Occupational Stress [...] Upcoming Encounters Date Type Department Care Team ([facility] st Contact Info) Description 01/30/2025 3:10 PM EDT Procedure Visit [facility] 112 [facility] 120 [place] [address] Real Og, DPMarcial 3006 [facility] 5 [place] [address] 05/05/2025 1:30 PM EDT Office Visit [facility] [address] [place] [address] Sandro Saunders DO [address] [place] [address] documented as of this encounter Procedures Procedure Name Priority Date/Time Associated Diagnosis Comments MR LUMBAR SPINE WO CON 12/22/2023 2:22 PM EDT documented in this encounter Results * MR LUMBAR SPINE WO CON (12/22/2023 2:22 PM EDT) Anatomical Region Laterality Modality Other 12/22/2023 2:22 PM EDT Narrative 12/22/2023 2:25 [place] [address] Magnetic Resonance Report Signed Patient: ANKUR REILLY MR#: [id number] : 1945 Acct:[id number] Age/Sex: 78 / M ADM Date: 12/22/23 Loc: RAD Attending Dr: Jadyn Wyman M.D. Ordering Physician: Jadyn Wyman M.D. Date of Service: 12/22/23 Procedure(s): MR lumbar spine wo con Accession Number(s): [id number] cc: BENI NGUYEN ; Jadyn Wyman M.D. [place] [address] Patient Name: ANKUR REILLY MRN: [id number] date: 1945 Sex: M Assigned Patient Location: [facility] Current Patient Location: [facility] Accession/Order Number: [id number] Exam Date: 12/22/2023 12:40 Report Date: 12/22/2023 14:22 At the request of: JADYN WYMAN Procedure: MR lumbar spine wo con EXAMINATION: MR lumbar spine wo con HISTORY: Lumbar stenosis, sacroilitis COMPARISON: No relevant comparison available. TECHNIQUE: A variety of imaging planes and parameters were utilized for visualization of suspected pathology. FINDINGS: Limited evaluation secondary to patient body habitus resulting in artifact despite multiple sequences being repeated. For the purposes of numbering, sagittal T2 image # 9 extends from the T11 vertebral body superiorly to the S2-S3 level inferiorly. PARASPINAL AREA: Normal with no visible mass. BONES: 5 mm anterolisthesis of L4 on L5. 9 mm anterolisthesis of L5 on S1. Signal abnormality consistent with bone edema lower half of the L3 and upper half of the L4 vertebral bodies . 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 DISC LEVELS: 12-L1: Moderate degenerative disc disease is present without visible neural impingement. L1-L2: Asymmetric disc space narrowing with collapse on the right and associated endplate sclerosis. Moderate diffuse disc/osteophyte complex. Ligamentum flavum hypertrophy and facet osteoarthropathy. Marked trefoil narrowing of the central canal. Severe right and mild left foraminal stenosis L2-L3: Asymmetric disc space narrowing with collapse on the right and associated endplate sclerosis. Moderate diffuse disc/osteophyte complex. Moderate ligamentum flavum hypertrophy and facet osteoarthropathy. Moderate trefoil narrowing of the central canal. Moderate right and no left foraminal stenosis L3-L4: Disc space narrowing with disc desiccation. Mild diffuse disc/osteophyte complex. Severe ligamentum flavum hypertrophy. Facet osteoarthropathy. Severe narrowing of the central canal axial image #13. Moderate right and mild left foraminal stenosis L4-L5: 5 mm anterolisthesis of L4 and L5. Moderate disc space narrowing and desiccation left greater than right with endplate sclerosis. Moderate diffuse bulge/pseudobulge. Severe ligamentum flavum hypertrophy. Severe narrowing of the central canal. Mild right and severe left foraminal stenosis L5-S1: Up to 9 mm of anterolisthesis of L5 on S1, left greater than right with resultant pseudobulge. Ligamentum flavum hypertrophy and facet osteoarthropathy. No central or right foraminal stenosis. Moderate to severe left foraminal stenosis MR/MR lumbar spine wo con IMPRESSION: Extensive degenerative changes with central and foraminal stenosis at multiple levels as detailed above Electronically authenticated by: JORDAN RUTLEDGE Date: 12/22/2023 14:22 Dictated By: Jordan Rutledge M.D. Signed By: 12/22/23 1425 DD/ 1422 TD/TT: Anesthesia Technician: Procedure Note Radiology, Radiologist, MD - 12/22/2023 [place] [address] Magnetic Resonance Report Signed Patient: ANKUR REILLY [facility]#: [id number] : 4Acct:[id number] Age/Sex: 78 / MADM Date: 12/22/23 Loc: RAD Attending Dr: Jadyn Wyman M.D. Ordering Physician: Jadyn Wyman M.D. Date of Service: 12/22/23 Procedure(s): MR lumbar spine wo con Accession Number(s): [id number] cc: BENI NGUYEN ; Jadyn Wyman M.D. [address] [address] Patient Name: ANKUR REILLY MRN: [id number] date: 1945 Sex: M Assigned Patient Location: [facility] Current Patient Location: [facility] Accession/Order Number: [id number] Exam Date: 12/22/2023 12:40 Report Date: 12/22/2023 14:22 At the request of: JADYN WYMAN Procedure: MR lumbar spine wo con EXAMINATION: MR lumbar spine wo con HISTORY: Lumbar stenosis, sacroilitis COMPARISON: No relevant comparison available. TECHNIQUE: A variety of imaging planes and parameters were utilized for visualization of suspected pathology. FINDINGS: Limited evaluation secondary to patient body habitus resulting in artifact despite multiple sequences being repeated. For the purposes of numbering, sagittal T2 image # 9 extends from the T11 vertebral body superiorly to the S2-S3 level inferiorly. PARASPINAL AREA: Normal with no visible mass. BONES: 5 mm anterolisthesis of L4 on L5. 9 mm anterolisthesis of L5 on S1. Signal abnormality consistent with bone edema lower half of the L3 andupper half of the L4 vertebral bodies . 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 DISC LEVELS: 12-L1: Moderate degenerative disc disease is present without visibleneural impingement. L1-L2: Asymmetric disc space narrowing with collapse on the right and associated endplate sclerosis. Moderate diffuse disc/osteophyte complex. Ligamentum flavum hypertrophy and facet osteoarthropathy. Marked trefoil narrowing of the central canal. Severe right and mild left foraminalstenosis L2-L3: Asymmetric disc space narrowing with collapse on the right and associated endplate sclerosis. Moderate diffuse disc/osteophyte complex. Moderate ligamentum flavum hypertrophy and facet osteoarthropathy.Moderate trefoil narrowing of the central canal. Moderate right and no leftforaminal stenosis L3-L4: Disc space narrowing with disc desiccation. Mild diffuse disc/osteophyte complex. Severe ligamentum flavum hypertrophy. Facet osteoarthropathy.Severe narrowing of the central canal axial image #13. Moderate right and mildleft foraminal stenosis L4-L5: 5 mm anterolisthesis of L4 and L5. Moderate disc space narrowingand desiccation left greater than right with endplate sclerosis. Moderatediffuse bulge/pseudobulge. Severe ligamentum flavum hypertrophy. Severe narrowingof the central canal. Mild right and severe left foraminal stenosis L5-S1: Up to 9 mm of anterolisthesis of L5 on S1, left greater than rightwith resultant pseudobulge. Ligamentum flavum hypertrophy and facet osteoarthropathy. No central or right foraminal stenosis. Moderate tosevere left foraminal stenosis MR/MR lumbar spine wo con IMPRESSION: Extensive degenerative changes with central and foraminal stenosis atmultiple levels as detailed above Electronically authenticated by: JORDAN RUTLEDGE Date: 12/22/2023 14:22 Dictated By: Jordan Rutledge M.D. Signed By:12/22/23 1425 DD/ 21 TD/TT: Anesthesia Technician: us Generic External Data Provider [facility] Final Result documented in this encounter Visit Diagnoses Not on filedocumented in this encounter Care Teams Presiding Steward Relationship Specialty Start Date End Date Beni Nguyen MD [address] [facility] [address] [place] [address] PCP - General Internal Medicine 01/02/23 Beni Nguyen MD [address] [facility] [address] [place] [address] PCP - ACO Reach 01/12/23 Esther Connolly, HEATHER Clinical Advocate Family Medicine 09/27/24 11/08/24 Anastasia Rayo LPN 11/08/24 documented as of this encounter
--- OUTSIDE RECORDS SUMMARY | 2025-01-15 14:05 | XMS_ITS | Clinical Summary ---
Author Organization [facility] Address [address] [place] [address] Phone Care Team Providers Care Patient Case Manager Name Role Phone Beni Nguyen MD Primary Care Provider [phone] Allergies Active Allergy Reactions Criticality Noted Date Comments Nebivolol Hallucinations High 09/24/2024 Medications multivit-min/f errous fumarate (MULTI VITAMIN ORAL) Take 1 tablet by mouth once daily. Active apixaban (Eliquis) 5 mg tablet Take 1 tablet (5 mg) by mouth 2 times a day. 1 Active baclofen (Lioresal) 10 mg tablet Take 1 tablet (10 mg) by mouth 3 times a day. 0 Active gabapentin (Neurontin) 300 mg capsule Take 1 capsule (300 mg) by mouth once daily at bedtime. 1 Active hydrALAZINE (Apresoline) 50 mg tablet Take 1 tablet (50 mg) by mouth 2 times a day. 1 Active lisinopril 20 mg tablet Take 1 tablet (20 mg) by mouth once daily. 2 Active loratadine 10 mg capsule Take 1 capsule by mouth once daily. Active omega 2-pty-pos-fish oil 360 mg-108 mg- 180 mg-1,200 mg capsule Take 1 capsule by mouth 2 times a day. Active predniSONE (Deltasone) 10 mg tablet Take 1 tablet (10 mg) by mouth once daily. Active pyridostigmine (Mestinon) 60 mg tablet Take 1 tablet (60 mg) by mouth 4 times a day. 1 Active simvastatin (Zocor) 40 mg tablet Take 1 tablet (40 mg) by mouth once daily at bedtime. 0 Active potassium chloride CR 10 mEq ER tablet Take 1 tablet (10 mEq) by mouth once daily. Emergency refill Active furosemide (Lasix) 20 mg tabletIndicati ons:Localized edema Take 2 tablets (40 mg) by mouth once daily. 60 tablet 11 5 11/05/19 26 Active nystatin (Mycostatin) 100,000 unit/gram powder Apply 1 Application topically if needed for itching or rash. Active oxyCODONE-acet aminophen (Percocet) 5-325 mg tablet Take 1 tablet by mouth every 6 hours if needed for severe pain (7 - 10). Active spironolactone (Aldactone) 25 mg tabletIndicati ons:Localized edema Take 1 tablet (25 mg) by mouth once daily. 90 tablet 3 5 01/16/20 26 Active spironolactone (Aldactone) 25 mg tabletIndicati ons:Localized edema Take 1 tablet (25 mg) by mouth once daily. 30 tablet 11 5 01/16/20 25 Discontin ued(Reord er) Active Problems Problem Noted Date Diagnosed Date Never smoked tobacco 09/24/2024 Paroxysmal atrial fibrillation (Multi) 4 Assessment & Plan (11/04/2024 4:28 PM EDT): EKG last week was sinus rhythm with PVC. Myasthenia gravis 09/20/2023 High risk medication use 09/20/2023 Abnormal stress test 06/05/2023 Cor pulmonale (Multi) 06/05/2023 Dyspnea 06/05/2023 Localized edema 06/05/2023 Assessment & Plan (11/04/2024 4:29 PM EDT): Presents to the office today with a 3-week history of progressive increasing bilateral lower extremity edema. He has gained approximately 8 pounds over the last 2 weeks. PCP increase Lasix 40 mg daily x 5 days (last dose yesterday) minimal benefit. Essential hypertension 06/05/2023 Assessment & Plan (11/04/2024 4:28 PM EDT): Presents with reported elevated blood pressure with recent fluid retention. Hyperlipidemia 06/05/2023 Pulmonary embolism 06/05/2023 Echocardiogram abnormal 06/05/2023 Malignant neoplasm of urinary bladder (Multi) BMI 45.0-49.9, adult (Multi) 06/05/2023 Assessment & Plan (11/04/2024 4:28 PM EDT): Reviewed the merits of healthy lifestyle choices on overall cardiovascular health. Encounters Date Type Department Care Team Description 01/15/2025 10:00 AM EDT Office Visit [address] [place] [address] Melonie Rizvi, CRUISE COUNSELOR-REPAIRER ENGINE PRODUCTION Localized edema 01/15/2025 Travel 11/18/[address] [place] [address] Patti Perez LPN Results 11/11/2024 2:00 PM EDT Ancillary Procedure [address] [place] [address] Localized edema; Paroxysmal atrial fibrillation (Multi) 11/11/2024 Travel 11/08/[address] [place] [address] Trini Sosa RN Patient Update 11/04/2024 12:00 PM EDT Office Visit [address] [place] [address] Melonie Rizvi, CRUISE COUNSELOR-REPAIRER ENGINE PRODUCTION Localized edema (Primary Dx); Essential hypertension; BMI 45.0-49.9, adult (Multi); Paroxysmal atrial fibrillation (Multi) 11/04/2024 Travel 10/24/[address] [place] [address] Patti Perez LPN from Last 3 Months Immunizations Immunization Administration Dates Next Due Flu vaccine, quadrivalent, h igh-dose, preservative free, age 65y+ (FLUZONE) 07/13/2022 Flu vaccine, trivalent, pres ervative free, HIGH-DOSE, age 65y+ (Fluzone) 06/22/2024,05/06/2020,05/27/2019,05/23,06/27/2017,05/17/2017 Influenza, Seasonal, Quadriv alent, Adjuvanted 05/20/2021 Influenza, seasonal, injectable 06/05/2024,04/21,05/21/2019 Pfizer COVID-19 vaccine, biv alent, age 12 years and older (30 mcg/0.3 mL) 07/21/2022 Pneumococcal conjugate vacci ne, 13-valent (PREVNAR 13) 05/21/2016,10/26/2015 Pneumococcal polysaccharide vaccine, 23-valent, age 2 years and older (PNEUMOVAX 23) 11/30/2017 Pneumococcal, Unspecified 05/21/2017 Zoster, live 05/08/2012 Family History Medical History Relation Name Comments No Known Problems Brother Heart attack Father No Known Problems Mother No Known Problems Sister Relation Name Status Comments Brother Father Mother Sister Social History Tobacco Use Types Packs/Day Years [...] No / Unsure 01/15/2025 9:51 AM EDT Last Filed Vital Signs Vital Sign Reading [...] Mass Index 46.83 01/15/2025 9:59 AM EDT Plan of Treatment Upcoming Encounters Date Type Department Care Team (Late st Contact Info) Description 09/25/2025 2:10 PM EST Office Visit [facility] [address] [phone] Juan C Hoover S, DO 703 [facility] 2, [address] [place], [place] [address] Health Maintenance Due Date Last Done Comments Medicare Annual Wellness Visit (AWV) 1945 Diabetes Screening 1961 DTaP/Tdap/Td Vaccines (1 - Tdap) 1965 Zoster Vaccines (2 of 3) 07/03/2012 05/08/2012 RSV High Risk: (Elderly (60+) or Population) (1 - 1-dose 75+ series) 2018 COVID-19 Vaccine (3 - season) 2024 09/29/2023, 07/21/2022 Echocardiogram 05/16/2024 05/16/2023, 03/25/2020 Creatinine Level 11/08/2025 11/08/2024 Potassium Level 11/08/2025 11/08/2024 Lipid Panel 09/25/2028 09/25/2023 Pneumococcal Vaccine Completed 11/30/2017, 05/21/2017, 05/21/2016, Additional history exists Influenza Vaccine Completed 06/22/2024, , 07/13/2022, Additional history exists HIB Vaccines Aged Out No longer eligi ble based on patient's age to complete this topic HPV Vaccines Aged Out No longer eligi ble based on patient's age to complete this topic Hepatitis A Vaccines Aged Out No long er eligible based on patient's age to complete this topic Hepatitis B Vaccines Aged Out No long er eligible based on patient's age to complete this topic IPV Vaccines Aged Out No longer eligi ble based on patient's age to complete this topic Meningococcal Vaccine Aged Out No radha nidhi eligible based on patient's age to complete this topic Rotavirus Vaccines Aged Out No longer eligible based on patient's age to complete this topic Procedures Procedure Name Priority Date/Time Associated Diagnosis Comments HOLTER MONITOR 24-48 HOURS - BRIQUETTE MACHINE OPERATOR, ANALYZED, AND PHYSICIAN READ Routine 11/11/2024 4:15 PM EDT Localized edema Paroxysmal atrial fibrillation (Multi) BASIC METABOLIC PANEL Routine 11/08/2024 10:26 AM EDT Paroxysmal atrial fibrillation (Multi) High risk medication use ECHOCARDIOGRAM 05/16/2023 from Last 3 Months or Most Recently Relevant to Health Maintenance Results * HOLTER MONITOR 24-48 HOURS - BRIQUETTE MACHINE OPERATOR, ANALYZED, AND PHYSICIAN READ (11/11/2024 4:15 PM EDT) Narrative CPACS - 11/17/2024 4:20 PM EDT 1-the rhythm was sinus throughout, average heart rate 72 bpm, minimum heart rate 49 bpm sinus bradycardia at 4:40 AM and maximal heart rate 146 bpm sinus tachycardia at 2:45 PM 2-large volume of PVCs, there was 2% PVC in 48 hours with an absolute number of 3973 beats occasional runs of ventricular bigeminy and trigeminy were seen 3-moderate volume of premature atrial complexes represented 0.4% of total QRS complexes, the majority were isolated beats however there was 4 short runs of narrow complex tachycardia the longest for 8 beats and the fastest at a rate of 197 bpm. This was not symptomatic 4-no pauses exceeding 2 seconds were seen 5-patient's diary had multiple entries for shortness of breath which did not correlate with cardiac arrhythmias Conclusion: Abnormal 48-hour Holter monitor. The rhythm was sinus throughout with an average heart rate of 72 bpm. PVCs were frequent represented 2% of total QRS complexes mostly in isolated forms with occasional runs of bigeminy and trigeminy, infrequent PACs mostly isolated beats represented 0.4% of QRS complexes, 4 short runs of narrow complex tachycardia, the longest for 8 beats with no symptoms. No pauses exceeding 2 seconds. Patient's symptoms of dyspnea did not correlate with cardiac arrhythmias us Melonie Rizvi CRUISE COUNSELOR-REPAIRER ENGINE PRODUCTION CV CARDIAC SERVICES CORRIE HERNANDEZ Final Result [facility] * (ABNORMAL) Basic Metabolic Panel (11/08/2024 10:26 AM EDT) GLUCOSE 169(H) 65 - 99 mg/dL [facility] Comment: Fasting reference interval For someone without known diabetes, a glucose value >125 mg/dL indicates that they may have diabetes and this should be confirmed with a follow-up test. UREA NITROGEN (BUN) 17 7 - 25 mg/dL [facility] CREATININE 1.03 0.70 - 1.22 mg/dL [facility] EGFR 73 > OR = 60 mL/min/1. 73m2 [facility] BUN/CREATININE RATIO SEE NOTE: 6 - 22 (calc) [facility] Comment: Not Reported: BUN and Creatinine are within reference range. SODIUM 142 135 - 146 mmol/L [facility] POTASSIUM 3.6 3.5 - 5.3 mmol/L [facility] CHLORIDE 101 98 - 110 mmol/L [facility] CARBON DIOXIDE 29 20 - 32 mmol/L [facility] ELECTROLYTE BALANCE 12 7 - 17 mmol/L (calc) [facility] CALCIUM 9.1 8.6 - 10.3 mg/dL [facility] Blood Venous blood specimen / Unknown 11/08/2024 10:26 AM EDT 11/08/2024 10:27 AM EDT us Melonie Rizvi CRUISE COUNSELOR-REPAIRER ENGINE PRODUCTION LAB BLOOD ORDERABLES Julianna ambrocio Result Performing Organization Address City/State[facility] Co [facility] Phone Number [facility] [address] [facility], [address] [place] [address] * ECHOCARDIOGRAM (05/16/2023) Narrative 05/16/2023 Ordered by an unspecified provider. us Onbase Conversion CV ECHO PROCEDURES Final Resul t from Last 3 Months or Most Recently Relevant to Health Maintenance Insurance MEDICARE PART A AND B [facility] Care Teams Patient Case Manager Relationship Specialty Start Date End Date Beni Nguyen MD 112 [facility] 110 [place] [address] PCP - General 05/18/23
--- OUTSIDE RECORDS SUMMARY | 2025-01-15 14:05 | XMS_ITS | Encounter Summary ---
Author Organization [facility] Address [address] [place] [address] Phone Care Team Providers Care Manager Research Development Name Role Phone Beni Nguyen MD Primary Care Provider [phone] Encounter Details Date Type Department Care Team (Late st Contact Info) Description 07/31/2023 Scanned Document [facility] [address] [place] [phone] Scanning, Generic Provider Social History Tobacco Use [...] Description 09/25/2025 2:10 PM EST Office Visit [facility] 703 [facility] [address] [place] [phone] Juan C Hoover, 703 [facility] 2, [address] [place], [place] [phone] documented as of this encounter Visit Diagnoses Not on filedocumented in this encounter Care Teams Manager Research Development Relationship Specialty Start Date End Date Beni Nguyen MD [address] [facility] 110 [place] [address] PCP - General 05/18/23 documented as of this encounter
--- OUTSIDE RECORDS SUMMARY | 2025-01-15 14:05 | XMS_ITS | Encounter Summary ---
Author Organization [facility] Address [address] [place] [address] Phone Care Team Providers Care Greenhouse Manager Name Role Phone Beni Nguyen MD Primary Care Provider [phone] Encounter Details Date Type Department Care Team (Latest Contact Info) Description 01/15/2025 Travel Social History Tobacco Use Types Packs/Day [...] AM EDT documented as of this encounter Plan of Treatment Upcoming Encounters Date Type Department Care Team (Late st Contact Info) Description 09/25/2025 2:10 PM EST Office Visit [facility] 703 [facility] 250 [place] [address] Juan C Hoover DO 703 [facility] 2, [address] [place] [address] documented as of this encounter Visit Diagnoses Not on filedocumented in this encounter Additional Health Concerns Assessment Noted Time A fall risk assessment has been complete d for the patient 01/15/2025 9:59 AM EDT documented as of this encounter Care Teams Greenhouse Manager Relationship Specialty Start Date End Date Beni Nguyen MD [address] [place] [address] PCP - General 05/18/23 documented as of this encounter
--- OUTSIDE RECORDS SUMMARY | 2025-01-15 14:05 | XMS_ITS | Encounter Summary ---
Author Organization [facility] Address [address] [place] [address] Care Team Providers Care Radio Producer Name Role Phone Beni Nguyen MD Primary Care Provider [phone] Beni Nguyen MD Unavailable [phone] Esther Connolly RN Unavailable [phone] Anastasia Rayo LPN Unavailable Unavailable Encounter Details Date Type Department Care Team (Late st Contact Info) Description 05/11/2023 Abstract [facility] 112 [facility] 110 [place] [address] Beni Nguyen MD 112 [facility] 110 [place] [address] Social History Tobacco Use Types Packs/Day Years [...] often do you attend chur ch or confucianist services? Never 03/17/2023 Do you belong to any clubs o r organizations such as orthodoxy groups, unions, fraternal or athletic groups, or [...] and heating? Not hard at all 03/17/2023 [facility] Occupat ional Health - Occupational Stress [...] place to sleep or slept in a longterm (including now)? No 03/17/2023 Sex and Gender [...] EDT Procedure Visit [facility] 112 [facility] 120 [place] [address] Real Og DPM 3006 [facility] 5 [place] [address] 05/05/2025 1:30 PM EDT Office Visit [facility] [address] [place] [address] Sandro Saunders DO [address] [place] [address] documented as of this encounter Visit Diagnoses Not on filedocumented in this encounter Care Teams Radio Producer Relationship Specialty Start Date End Date Beni Nguyen MD [address] [place] [address] PCP - General Internal Medicine 01/02/23 Beni Nguyen MD 112 [facility] 110 [place] [address] PCP - ACO Reach 01/12/23 Esther Connolly, HEATHER Clinical Advocate Family Medicine 09/27/24 11/08/24 Anastasia Rayo LPN 11/08/24 documented as of this encounter
--- OUTSIDE RECORDS SUMMARY | 2025-01-15 14:05 | XMS_ITS | Encounter Summary ---
Author Organization [facility] Address [address] [place] [address] Phone Care Team Providers Care Fishing Vessel Operator Name Role Phone Beni Nguyen MD Primary Care Provider [phone] Encounter Details Date Type Department Care Team (Late st Contact Info) Description 09/11/2024 Scanned Document [facility] [address] [place] [phone] Scanning, Generic Provider Social History Tobacco Use [...] Description 09/25/2025 2:10 PM EST Office Visit [facility] 703 [facility] [address] [place] [address] Juan C Hoover, 703 [facility] 2, [address] [place] [address] documented as of this encounter Procedures Procedure Name Priority Date/Time Associated Diagnosis Comments OUTSIDE IMAGING SCAN 09/11/2024 documented in this encounter Results * OUTSIDE IMAGING SCAN (09/11/2024) Anatomical Region Laterality Modality Other Narrative 09/11/2024 Ordered by an unspecified provider. us Generic Provider Scanning OUTSIDE SCAN Final Result documented in this encounter Visit Diagnoses Not on filedocumented in this encounter Additional Health Concerns Assessment Noted Time A fall risk assessment has been complete d for the patient 09/20/2023 12:14 PM EST documented as of this encounter Care Teams Fishing Vessel Operator Relationship Specialty Start Date End Date Beni Nguyen MD 112 [facility] 110 [place] [address] PCP - General 05/18/23 documented as of this encounter
--- OUTSIDE RECORDS SUMMARY | 2025-01-15 14:05 | XMS_ITS | Encounter Summary ---
Author Organization [facility] Address [address] [place] [address] Phone Care Team Providers Care Planner Scheduler Name Role Phone Beni Nguyen MD Primary Care Provider [phone] Encounter Details Date Type Department Care Team (Late st Contact Info) Description 07/28/2024 Scanned Document [facility] [address] [place] [phone] Scanning, Generic Provider Social History Tobacco Use [...] Description 09/25/2025 2:10 PM EST Office Visit [place] [address] [facility] 250 [place] [address] Juan C Hoover 703 [facility] 2, [address] [place] [address] Scheduled Orders Name Type Priority Associated Diagnoses Orde r Schedule Ultrasound- OnBase Scan Imaging O rdered: 07/28/2024 documented as of this encounter Visit Diagnoses Not on filedocumented in this encounter Additional Health Concerns Assessment Noted Time A fall risk assessment has been complete d for the patient 09/20/2023 12:14 PM EST documented as of this encounter Care Teams Planner Scheduler Relationship Specialty Start Date End Date Beni Nguyen MD 112 [facility] 110 [place] [address] PCP - General 05/18/23 documented as of this encounter
--- OUTSIDE RECORDS SUMMARY | 2025-01-15 14:05 | XMS_ITS | Encounter Summary ---
Author Organization [facility] Address [address] [place] [address] Phone Care Team Providers Care Parts Clerk Name Role Phone Beni Nguyen MD Primary Care Provider [phone] Encounter Details Date Type Department Care Team (Late st Contact Info) Description 05/16/2023 Scanned Document [facility] [address] [place] [address] Conversion, Onbase Social History Tobacco Use Types [...] Description 09/25/2025 2:10 PM EST Office Visit [facility] [address] [place] [address] Juan C Hoover [address] [place] [address] documented as of this encounter Procedures Procedure Name Priority Date/Time Associated Diagnosis Comments ECHOCARDIOGRAM 05/16/2023 documented in this encounter Results * ECHOCARDIOGRAM (05/16/2023) Narrative 05/16/2023 Ordered by an unspecified provider. us Onbase Conversion CV ECHO PROCEDURES Final Resul t documented in this encounter Visit Diagnoses Not on filedocumented in this encounter Care Teams Parts Clerk Relationship Specialty Start Date End Date Beni Nguyen MD [address] [address] PCP - General 05/18/23 documented as of this encounter
--- OUTSIDE RECORDS SUMMARY | 2025-01-15 14:06 | XMS_ITS | Encounter Summary ---
Author Organization [facility] Address [address] [place] [address] Care Team Providers Care Correctional Cook Name Role Phone Beni Nguyen MD Primary Care Provider Beni Nguyen MD Unavailable [phone] Esther Connolly RN Unavailable [phone] Anastasia Rayo LPN Unavailable Unavailable Encounter Details Date Type Department Care Team (Late st Contact Info) Description 07/04/2023 Abstract [facility] 112 [facility] 110 [place] [address] Beni Nguyen MD 112 [facility] 110 [place], [place] [address] Social History Tobacco Use Types Packs/Day Years [...] often do you attend chur ch or sikh services? Never 03/17/2023 Do you belong to any clubs o r organizations such as orthodox groups, unions, fraternal or athletic groups, or [...] and heating? Not hard at all 03/17/2023 [facility] of Occupat ional Health - Occupational [...] Upcoming Encounters Date Type Department Care Team ([facility] st Contact Info) Description 01/30/2025 3:10 PM EDT Procedure Visit [facility] 112 [facility] 120 [place] [address] Real Og DPM 3006 [facility] 5 [place] [address] 05/05/2025 1:30 PM EDT Office Visit [facility] [address] [place] [address] Sandro Saunders DO [address] [place] [address] documented as of this encounter Visit Diagnoses Not on filedocumented in this encounter Care Teams Correctional Cook Relationship Specialty Start Date End Date Beni Nguyen MD [address] [place] [address] PCP - General Internal Medicine 01/02/23 Beni Nguyen MD 112 [facility] 110 [place] [address] PCP - ACO Reach 01/12/23 Esther Connolly, HEATHER Clinical Advocate Family Medicine 09/27/24 11/08/24 Anastasia Rayo LPN 11/08/24 documented as of this encounter
--- OUTSIDE RECORDS SUMMARY | 2025-01-15 14:06 | XMS_ITS | Encounter Summary ---
Author Organization [facility] Address [address] [place] [address] Care Team Providers Care Internal Communications Manager Name Role Phone Beni Nguyen MD Primary Care Provider [phone] Beni Nguyen MD Unavailable [phone] Esther Connolly RN Unavailable [phone] Anastasia Rayo LPN Unavailable Unavailable Encounter Details Date Type Department Care Team (Late st Contact Info) Description 06/27/2023 Abstract [facility] 112 [facility] [facility] 110 [place] [address] Beni Nguyen MD 112 [facility] 110 [place], [place] [address] Social History Tobacco Use Types Packs/Day Years [...] often do you attend chur ch or jehovah's witness services? Never 03/17/2023 Do [...] and heating? Not hard at all 03/17/2023 [facility] Occupat ional Health - [...] place to sleep or slept in a mcc (including now)? No 03/17/2023 Sex and Gender Information Value Date Recorded Sex Assigned at Not on file Legal Sex Male 6:56 PM EDT Gender Identity Not on file Sexual Orientation Not on file documented as of this encounter Plan of Treatment Upcoming Encounters Date Type Department Care Team ([facility] st Contact Info) Description 01/30/2025 3:10 PM EDT Procedure Visit [facility] 112 [facility] 120 [place] [address] Real Og DPM 3006 [facility] 5 [place] [address] 05/05/2025 1:30 PM EDT Office Visit [facility] [address] [place] [address] Sandro Saunders DO [address] [place] [address] documented as of this encounter Visit Diagnoses Not on filedocumented in this encounter Care Teams Internal Communications Manager Relationship Specialty Start Date End Date Beni Nguyen MD [address] [place] [address] PCP - General Internal Medicine 01/02/23 Beni Nguyen MD 112 [facility] 110 [place] [address] PCP - ACO Reach 01/12/23 Esther Connolly, HEATHER Clinical Advocate Family Medicine 09/27/24 11/08/24 Anastasia Rayo LPN 11/08/24 documented as of this encounter
--- OUTSIDE RECORDS SUMMARY | 2025-01-15 14:06 | XMS_ITS ---
Author Organization [facility] Address [address] [place] [address] Care Team Providers Care Communication Technician Name Role Phone Beni Nguyen MD Primary Care Provider [phone] Beni Nguyen MD Unavailable [phone] Anastasia Rayo LPN Unavailable Unavailable Chronic Care Management (CCM) Status:Enrolled (Active) Start date:01/05/2023 Enrollment date:01/05/2023 Overview 06/21/23, 9:37 AM - Salma Monday, ALETHA- Patient gives verbal consent to be enrolled in CCM Program and understands there could be a bill for this service. Case Team Name Relationship Phone Anastasia Rayo LPN(Responsible Staff) Continued Care and Services Coordination
--- OUTSIDE RECORDS SUMMARY | 2025-01-15 14:06 | XMS_ITS | Encounter Summary ---
Author Organization [facility] Address [address] [place] [address] Care Team Providers Care Plate Take Out Worker Name Role Phone Beni Nguyen MD Primary Care Provider [phone] Beni Nguyen MD Unavailable [phone] Esther Connolly RN Unavailable [phone] Anastasia Rayo LPN Unavailable Unavailable Encounter Details Date Type Department Care Team (Late st Contact Info) Description 06/12/2023 Abstract [facility] [address] [facility] 110 [place] [address] Beni Nguyen MD 112 [facility] 110 [place] [address] Social History Tobacco Use Types Packs/Day Years [...] often do you attend chur ch or mandaen services? Never 03/17/2023 Do you belong to any clubs o r organizations such as yarsanism groups, unions, fraternal or athletic groups, or [...] and heating? Not hard at all 03/17/2023 [facility] of Occupat ional Health [...] Upcoming Encounters Date Type Department Care Team ([facility] st Contact Info) Description 01/30/2025 3:10 PM EDT Procedure Visit [facility] 112 [facility] 120 [place] [address] Real Og DPM 3006 [facility] 5 [place] [address] 05/05/2025 1:30 PM EDT Office Visit [facility]ANDELL SUMMERS [address] [place] [address] Sadnro Saunders DO [address] [place] [address] documented as of this encounter Visit Diagnoses Not on filedocumented in this encounter Care Teams Plate Take Out Worker Relationship Specialty Start Date End Date Beni Nguyen MD [address] [place] [address] PCP - General Internal Medicine 01/02/23 Beni Nguyen MD 112 [facility] 110 [place] [address] PCP - ACO Reach 01/12/23 Esther Connolly, HEATHER Clinical Advocate Family Medicine 09/27/24 11/08/24 Anastasia Rayo LPN 11/08/24 documented as of this encounter
--- OUTSIDE RECORDS SUMMARY | 2025-01-15 14:06 | XMS_ITS | Encounter Summary ---
Author Organization [facility] Address [address] [place] [address] Care Team Providers Care Technical Sales Support Manager Name Role Phone Beni Nguyen MD Primary Care Provider [phone] Beni Nguyen MD Unavailable [phone] Esther Connolly RN Unavailable [phone] Anastasia Rayo LPN Unavailable Unavailable Encounter Details Date Type Department Care Team (Late st Contact Info) Description 02/13/2024 Abstract [facility] 112 [facility] [facility] 110 [place] [address] Beni Nguyen MD 112 [facility] 110 [place], [place] [address] Social History Tobacco Use Types Packs/Day Years [...] often do you attend chur ch or zoroastrian services? Never 03/17/2023 Do you belong to any clubs o r organizations such as gnosticist groups, unions, fraternal or athletic groups, or [...] Recorded Patient Health Questionnaire-2 Score 0 [facility]/05[facility]2023 [facility] - [facility]ational Stress Questionnaire Answer Date Recorded [...] Upcoming Encounters Date Type Department Care Team ([facility] st Contact Info) Description 01/30/2025 3:10 PM EDT Procedure Visit [facility] 112 [facility] 120 [place] [address] Real Og DPMarcial 3006 [facility] 5 [place] [address] 05/05/2025 1:30 PM EDT Office Visit RANDELL SUMMERS [address] [place] [address] Sandro Saunders DO [address] [place] [address] documented as of this encounter Visit Diagnoses Not on filedocumented in this encounter Care Teams Technical Sales Support Manager Relationship Specialty Start Date End Date Beni Nguyen MD 112 [facility] 110 [place] [address] PCP - General Internal Medicine 01/02/23 Beni Nguyen MD 112 [facility] 110 [place] [address] PCP - ACO Reach 01/12/23 Esther Connolly, RN Clinical Advocate Family Medicine 09/27/24 11/08/24 Anastasia Rayo LPN 11/08/24 documented as of this encounter
--- OUTSIDE RECORDS SUMMARY | 2025-01-15 14:06 | XMS_ITS | Encounter Summary ---
Author Organization [facility] Address [address] [place] [address] Care Team Providers Care Tire Technician Name Role Phone Beni Nguyen MD Primary Care Provider [phone] Beni Nguyen MD Unavailable [phone] Esther Connolly RN Unavailable [phone] Anastasia Rayo LPN Unavailable Unavailable Encounter Details Date Type Department Care Team (Late st Contact Info) Description 08/04/2023 Abstract [facility] [address] [facility] [facility] 110 [place] [address] Beni Nguyen MD 112 [facility] 110 [place] [address] Social History Tobacco Use Types Packs/Day Years [...] any clubs o r organizations such as yarsani groups, unions, fraternal or athletic groups, or [...] and heating? Not hard at all 03/17/2023 [facility] of Occupat ional Health - [...] Upcoming Encounters Date Type Department Care Team ([facility] st Contact Info) Description 01/30/2025 3:10 PM EDT Procedure Visit [facility] 112 [facility] 120 [place] [address] Real Og DPM 3006 [facility] 5 [place] [address] 05/05/2025 1:30 PM EDT Office Visit [facility]LL SUMMERS [address] [place] [address] Sandro Saunders DO [address] [place] [address] documented as of this encounter Visit Diagnoses Not on filedocumented in this encounter Care Teams Tire Technician Relationship Specialty Start Date End Date Beni Nguyen MD [address] [place] [address] PCP - General Internal Medicine 01/02/23 Beni Nguyen MD 112 [facility] 110 [place] [address] PCP - ACO Reach 01/12/23 Esther Connolly, HEATHER Clinical Advocate Family Medicine 09/27/24 11/08/24 Anastasia Rayo LPN 11/08/24 documented as of this encounter
--- OUTSIDE RECORDS SUMMARY | 2025-01-15 14:06 | XMS_ITS | Encounter Summary ---
Author Organization [facility] Address [address] [place] [address] Care Team Providers Care Chief Quality Officer Name Role Phone Beni Nguyen MD Primary Care Provider [phone] Beni Nguyen MD Unavailable [phone] Esther Connolly RN Unavailable [phone] Anastasia Rayo LPN Unavailable Unavailable Encounter Details Date Type Department Care Team (Late st Contact Info) Description 06/20/2023 Abstract [facility] 112 [facility] 110 [place] [address] Beni Nguyen MD 112 [facility] 110 [place] [address] Social History Tobacco Use Types Packs/Day Years [...] often do you attend chur ch or bahai services? Never 03/17/2023 Do you belong to any clubs o r organizations such as christian groups, unions, fraternal or athletic groups, or [...] and heating? Not hard at all 03/17/2023 [facility] of Occupat ional Health - [...] Upcoming Encounters Date Type Department Care Team ([facility] st Contact Info) Description 01/30/2025 3:10 PM EDT Procedure Visit [facility] 112 [facility] 120 [place] [address] Real Og DPM 3006 [facility] 5 [place] [address] 05/05/2025 1:30 PM EDT Office Visit RANDELL SUMMERS [address] [place] [address] Sandro Saunders DO [address] [place] [address] documented as of this encounter Visit Diagnoses Not on filedocumented in this encounter Care Teams Chief Quality Officer Relationship Specialty Start Date End Date Beni Nguyen MD [address] [place] [address] PCP - General Internal Medicine 01/02/23 Beni Nguyen MD 112 [facility] 110 [place] [address] PCP - ACO Reach 01/12/23 Esther Connolly, HEATHER Clinical Advocate Family Medicine 09/27/24 11/08/24 Anastasia Rayo LPN 11/08/24 documented as of this encounter
--- OUTSIDE RECORDS SUMMARY | 2025-01-15 14:06 | XMS_ITS | Encounter Summary ---
Author Organization [facility] Address [address] [place] [address] Care Team Providers Care Ep Specialist Name Role Phone Beni Nguyen MD Primary Care Provider [phone] Beni Nguyen MD Unavailable [phone] Esther Connolly RN Unavailable [phone] Anastasia Rayo LPN Unavailable Unavailable Encounter Details Date Type Department Care Team (Late st Contact Info) Description 07/18/2023 Abstract [facility] 112 [facility] 110 [place] [address] Beni Nguyen MD 112 [facility] 110 [place], [place] [address] Social History Tobacco Use Types Packs/Day Years [...] often do you attend chur ch or yarsani services? Never 03/17/2023 Do you belong to [...] and heating? Not hard at all 03/17/2023 [facility] of Occupat ional Health - Occupational Stress [...] Procedure Visit [facility] 112 [facility] 120 [place] [address] Real Og DPM 3[address] [facility] 5 [place] [address] 05/05/2025 1:30 PM EDT Office Visit RANDELL SUMMERS [address] [place] [address] Sandro Saunders DO [address] [place] [address] documented as of this encounter Visit Diagnoses Not on filedocumented in this encounter Care Teams Ep Specialist Relationship Specialty Start Date End Date Beni Nguyen MD [address] [place] [address] PCP - General Internal Medicine 01/02/23 Beni Nguyen MD 112 [facility] 110 [place] [address] PCP - ACO Reach 01/12/23 Esther Connolly, HEATHER Clinical Advocate Family Medicine 09/27/24 11/08/24 Anastasia Rayo LPN 11/08/24 documented as of this encounter
--- OUTSIDE RECORDS SUMMARY | 2025-01-15 14:06 | XMS_ITS | Encounter Summary ---
Author Organization [facility] Address [address] [place] [address] Care Team Providers Care Picture Booker Name Role Phone Beni Nguyen MD Primary Care Provider [phone] Beni Nguyen MD Unavailable [phone] Esther Connolly RN Unavailable [phone] Anastasia Rayo LPN Unavailable Unavailable Encounter Details Date Type Department Care Team (Late st Contact Info) Description 05/11/2023 Abstract [facility] 112 [facility] [facility] 110 [place] [address] Beni Nguyen MD 112 [facility] 110 [place] [address] Social History Tobacco Use Types Packs/Day Years [...] often do you attend chur ch or shinto services? Never 03/17/2023 Do you belong to any clubs o r organizations such as spiritism groups, unions, fraternal or athletic groups, or [...] and heating? Not hard at all 03/17/2023 [facility] of Occupat ional Health - Occupational Stress [...] place to sleep or slept in a half-way (including now)? No 03/17/2023 Sex and Gender Information Value Date Recorded Sex Assigned at Not on file Legal Sex Male 6:56 PM EDT Gender Identity Not on file Sexual Orientation Not on file documented as of this encounter Plan of Treatment Upcoming Encounters Date Type Department Care Team ([facility] st Contact Info) Description 01/30/2025 3:10 PM EDT Procedure Visit [facility] 112 [facility] 120 [place] [address] Real Og DPM 3006 [facility] 5 [place] [address] 05/05/2025 1:30 PM EDT Office Visit RANDELL SUMMERS [address] [place] [address] Sandro Saunders DO [address] [place] [address] documented as of this encounter Visit Diagnoses Not on filedocumented in this encounter Care Teams Picture Booker Relationship Specialty Start Date End Date Beni Nguyen MD [address] [place] [address] PCP - General Internal Medicine 01/02/23 Beni Nguyen MD 112 [facility] 110 [place] [address] PCP - ACO Reach 01/12/23 Esther Connolly, HEATHER Clinical Advocate Family Medicine 09/27/24 11/08/24 Anastasia Rayo LPN 11/08/24 documented as of this encounter
--- OUTSIDE RECORDS SUMMARY | 2025-01-15 14:06 | XMS_ITS | Encounter Summary ---
Author Organization [facility] Address [address] [place] [address] Care Team Providers Care Manager Of Environmental Services Name Role Phone Beni Nguyen MD Primary Care Provider [phone] Beni Nguyen MD Unavailable [phone] Esther Connolly RN Unavailable [phone] Anastasia Rayo LPN Unavailable Unavailable Encounter Details Date Type Department Care Team (Late st Contact Info) Description 07/18/2023 Abstract [facility] [address] [facility] 110 [place] [address] Beni Nguyen MD 112 [facility] 110 [place], [place] [address] Social History Tobacco Use Types Packs/Day Years [...] often do you attend chur ch or judaism services? Never 03/17/2023 Do you belong to [...] and heating? Not hard at all 03/17/2023 [facility] of Occupat ional Health - Occupational [...] place to sleep or slept in a chcf (including now)? No 03/17/2023 Sex and Gender Information Value Date Recorded Sex Assigned at Not on file Legal Sex Male 6:56 PM EDT Gender Identity Not on file Sexual Orientation Not on file documented as of this encounter Plan of Treatment Upcoming Encounters Date Type Department Care Team ([facility] st Contact Info) Description 01/30/2025 3:10 PM EDT Procedure Visit [facility] 112 [facility] 120 [place] [address] Real Og DPM 3006 [facility] 5 [place] [address] 05/05/2025 1:30 PM EDT Office Visit RANDELL SUMMERS [address] [place] [address] Sandro Saunders DO [address] [place] [address] documented as of this encounter Visit Diagnoses Not on filedocumented in this encounter Care Teams Manager Of Environmental Services Relationship Specialty Start Date End Date Beni Nguyen MD [address] [place] [address] PCP - General Internal Medicine 01/02/23 Beni Nguyen MD 112 [facility] 110 [place] [address] PCP - ACO Reach 01/12/23 Esther Connolly, HEATHER Clinical Advocate Family Medicine 09/27/24 11/08/24 Anastasia Rayo LPN 11/08/24 documented as of this encounter
--- OUTSIDE RECORDS SUMMARY | 2025-01-15 14:06 | XMS_ITS | Encounter Summary ---
Author Organization [facility] Address [address] [place] [address] Care Team Providers Care Web Sizer Name Role Phone Beni Nguyen MD Primary Care Provider [phone] Beni Nguyen MD Unavailable [phone] Esther Connolly RN Unavailable [phone] Anastasia Rayo LPN Unavailable Unavailable Encounter Details Date Type Department Care Team (Late st Contact Info) Description 07/26/2023 Abstract [facility] 112 [facility] [facility] 110 [place] [address] Beni Nguyen MD 112 [facility] 110 [place] [address] Social History Tobacco Use Types Packs/Day Years [...] and heating? Not hard at all 03/17/2023 [facility] of Occupat ional Health - Occupational [...] Upcoming Encounters Date Type Department Care Team ([facility] st Contact Info) Description 01/30/2025 3:10 PM EDT Procedure Visit [facility] 112 [facility] 120 [place] [address] Real Og DPM 3006 [facility] 5 [place] [address] 05/05/2025 1:30 PM EDT Office Visit RANDELL SUMMERS [address] [place] [address] Sandro Saunders DO [address] [place] [address] documented as of this encounter Visit Diagnoses Not on filedocumented in this encounter Care Teams Web Sizer Relationship Specialty Start Date End Date Beni Nguyen MD [address] [place] [address] PCP - General Internal Medicine 01/02/23 Beni Nguyen MD 112 [facility] 110 [place] [address] PCP - ACO Reach 01/12/23 Esther Connolly, HEATHER Clinical Advocate Family Medicine 09/27/24 11/08/24 Anastasia Rayo LPN 11/08/24 documented as of this encounter
--- OUTSIDE RECORDS SUMMARY | 2025-01-15 14:06 | XMS_ITS | Encounter Summary ---
Author Organization [facility] Address [address] [place] [address] Care Team Providers Care Control Room Operator Name Role Phone Beni Nguyen MD Primary Care Provider Beni Nguyen MD Unavailable [phone] Esther Connolly RN Unavailable [phone] Anastasia Rayo LPN Unavailable Unavailable Encounter Details Date Type Department Care Team (Late st Contact Info) Description 06/24/2024 Abstract [facility] 112 [facility] 110 [place] [address] Beni Nguyen MD 112 [facility] 110 [place] [address] Social History Tobacco Use Types Packs/Day Years [...] How often do you attend chur or nondenominational services? Never 03/17/2023 Do you belong to [...] Recorded Patient Health Questionnaire-2 Score 0 10/05/2023 [facility] of Occupat ional Health - Occupational [...] Procedure Visit [facility] 112 [facility] 120 [place] [address] Real Og DPM 3006 [facility] 5 [place] [address] 05/05/2025 1:30 PM EDT Office Visit RANDELL SUMMERS [address] [place] [address] Sandro Saunders DO [address] [place] [address] documented as of this encounter Visit Diagnoses Not on filedocumented in this encounter Care Teams Control Room Operator Relationship Specialty Start Date End Date Beni Nguyen MD [address] [facility] 110 [place] [address] PCP - General Internal Medicine 01/02/23 Beni Nguyen MD [address] [facility] 110 [place] [address] PCP - ACO Reach 01/12/23 Esther Connolly, HEATHER Clinical Advocate Family Medicine 09/27/24 11/08/24 Anastasia Rayo LPN 11/08/24 documented as of this encounter
--- OUTSIDE RECORDS SUMMARY | 2025-01-15 14:06 | XMS_ITS | Encounter Summary ---
Author Organization [facility] Address [address] [place] [address] Care Team Providers Care Psychiatric Secretary Name Role Phone Beni Nguyen MD Primary Care Provider [phone] Beni Nguyen MD Unavailable [phone] Esther Connolly RN Unavailable [phone] Anastasia Rayo LPN Unavailable Unavailable Encounter Details Date Type Department Care Team (Late st Contact Info) Description 05/23/2023 Abstract [facility] 112 [facility] 110 [place] [address] Beni Nguyen MD 112 [facility] 110 [place] [address] Social History Tobacco Use Types Packs/Day Years [...] often do you attend chur ch or orthodoxy services? Never 03/17/2023 Do you belong to [...] and heating? Not hard at all 03/17/2023 [facility] of Occupat ional Health - Occupational [...] place to sleep or slept in a long term (including now)? No 03/17/2023 Sex and Gender [...] Procedure Visit [facility] 112 [facility] 120 [place] [address] Real Og DPM 3006 [facility] 5 [place] [address] 05/05/2025 1:30 PM EDT Office Visit RANDELL SUMMERS [address] [place] [address] Sandro Saunders DO [address] [place] [address] documented as of this encounter Visit Diagnoses Not on filedocumented in this encounter Care Teams Psychiatric Secretary Relationship Specialty Start Date End Date Beni Nguyen MD [address] [place] [address] PCP - General Internal Medicine 01/02/23 Beni Nguyen MD 112 [facility] 110 [place] [address] PCP - ACO Reach 01/12/23 Esther Connolly, HEATHER Clinical Advocate Family Medicine 09/27/24 11/08/24 Anastasia Rayo LPN 11/08/24 documented as of this encounter
--- OUTSIDE RECORDS SUMMARY | 2025-01-15 14:06 | XMS_ITS | Encounter Summary ---
Author Organization [facility] Address [address] [place] [address] Care Team Providers Care Appliance Painter And Refinisher Name Role Phone Beni Nguyen MD Primary Care Provider [phone] Beni Nguyen MD Unavailable [phone] Esther Connolly RN Unavailable [phone] Anastasia Rayo LPN Unavailable Unavailable Encounter Details Date Type Department Care Team (Late st Contact Info) Description 05/17/2023 Abstract [facility] 112 [facility] 110 [place] [address] Beni Nguyen MD 112 [facility] 110 [place], [place] [address] Social History Tobacco Use Types Packs/Day Years [...] often do you attend chur ch or temple services? Never 03/17/2023 Do you belong to [...] place to sleep or slept in a skilled nursing (including now)? No 03/17/2023 Sex and Gender Information Value Date Recorded Sex Assigned at Not on file Legal Sex Male 6:56 PM EDT Gender Identity Not on file Sexual Orientation Not on file documented as of this encounter Plan of Treatment Upcoming Encounters Date Type Department Care Team ([facility] st Contact Info) Description 01/30/2025 3:10 PM EDT Procedure Visit [facility] 112 [facility] 120 [place] [address] Real Og DPM 3006 [facility] 5 [place] [address] 05/05/2025 1:30 PM EDT Office Visit RANDELL SUMMERS [address] [place] [address] Sandro Saunders DO [address] [place] [address] documented as of this encounter Visit Diagnoses Not on filedocumented in this encounter Care Teams Appliance Painter And Refinisher Relationship Specialty Start Date End Date Beni Nguyen MD [address] [place] [address] PCP - General Internal Medicine 01/02/23 Beni Nguyen MD 112 [facility] 110 [place] [address] PCP - ACO Reach 01/12/23 Esther Connolly, HEATHER Clinical Advocate Family Medicine 09/27/24 11/08/24 Anastasia Rayo LPN 11/08/24 documented as of this encounter
--- OUTSIDE RECORDS SUMMARY | 2025-01-15 14:06 | XMS_ITS | Encounter Summary ---
Author Organization [facility] Address [address] [place] [address] Care Team Providers Care Sponge Buffer Name Role Phone Beni Nguyen MD Primary Care Provider [phone] Beni Nguyen MD Unavailable [phone] Esther Connolly RN Unavailable [phone] Anastasia Rayo LPN Unavailable Unavailable Encounter Details Date Type Department Care Team (Late st Contact Info) Description 07/07/2023 Abstract [facility] 112 [facility] 110 [place] [address] Beni Nguyen MD 112 [facility] 110 [place], [place] [id number] Social History Tobacco Use Types Packs/Day Years [...] often do you attend chur ch or oriental orthodox services? Never 03/17/2023 Do you belong to [...] and heating? Not hard at all 03/17/2023 [facility] of Occupat ional Health - Occupational Stress [...] Upcoming Encounters Date Type Department Care Team ([facility] st Contact Info) Description 01/30/2025 3:10 PM EDT Procedure Visit [facility] [address] [facility] 120 [place] [address] Real Og DPM 3006 [facility] 5 [place] [address] 05/05/2025 1:30 PM EDT Office Visit [facility]ERS [address] [place] [address] Sandro Saunders DO [address] [place] [address] documented as of this encounter Visit Diagnoses Not on filedocumented in this encounter Care Teams Sponge Buffer Relationship Specialty Start Date End Date Beni Nguyen MD [address] [place] [address] [place] [address] PCP - General Internal Medicine 01/02/23 Beni Nguyen MD 112 [facility] 110 [place] [address] PCP - ACO Reach 01/12/23 Esther Connolly, HEATHER Clinical Advocate Family Medicine 09/27/24 11/08/24 Anastasia Rayo LPN 11/08/24 documented as of this encounter
--- OUTSIDE RECORDS SUMMARY | 2025-01-15 14:06 | XMS_ITS | Encounter Summary ---
Author Organization [facility] Address [address] [place] [address] Care Team Providers Care Glass Engraver Name Role Phone Beni Nguyen MD Primary Care Provider [phone] Beni Nguyen MD Unavailable [phone] Esther Connolly RN Unavailable [phone] Anastasia Rayo LPN Unavailable Unavailable Encounter Details Date Type Department Care Team (Late st Contact Info) Description 03/07/2024 Clinisync Result Encounter N[facility] External Department Unsolicited [...] any clubs o r organizations such as methodist groups, unions, fraternal or athletic groups, or [...] Recorded Patient Health Questionnaire-2 Score 0 10/05/2023 [facility] of Occupat ional Health - [...] Procedure Visit [facility] 112 [facility] 120 [place] [address] Real Og, DPMarcial 3006 [facility] 5 [place] [address] 05/05/2025 1:30 PM EDT Office [facility] [address] [place] [address] [place] [address] Sandro Saunders DO [address] [place] [address] documented as of this encounter Procedures Procedure Name Priority Date/Time Associated Diagnosis Comments MR KNEE LT WO CON 03/07/2024 4:3 0 AM EDT documented in this encounter Results * MR KNEE LT WO CON (03/07/2024 4:30 AM EDT) Anatomical Region Laterality Modality Other 03/07/2024 4:30 AM EDT Narrative 03/07/2024 4:33 AM EDT The [address] [address] Magnetic Resonance Report Signed Patient: ANKUR REILLY MR#: [id number] : 1945 Acct:[id number] Age/Sex: 78 / M ADM Date: 03/06/24 Loc: MRI Attending Dr: Priya Gao M.D. Ordering Physician: Priya Gao M.D. Date of Service: 03/06/24 Procedure(s): MR knee LT wo con Accession Number(s): [id number] cc: BENI NGUYEN ; Priya Gao M.D. [place] [address] Patient Name: ANKUR REILLY MRN: [id number] date: 1945 Sex: M Assigned Patient Location: MRI Current Patient Location: Accession/Order Number: [id number] Exam Date: 03/06/2024 07:00 Report Date: 03/07/2024 04:30 At the request of: PRIYA GAO Procedure: MR knee LT wo con EXAMINATION: MR knee LT wo con HISTORY: left knee pain COMPARISON: No relevant comparison available. TECHNIQUE: A complete multi-planar MRI was performed. FINDINGS: MEDIAL COMPARTMENT MEDIAL MENISCUS: Mostly extruded from the joint space with increased T2 signal throughout suggestive of intrasubstance degeneration. No convincing tear. CARTILAGE: Moderate thinning; no focal tear. BONES: No marrow pathology, fracture, or significant arthropathy. MCL AND MEDIAL CAPSULE: Grade I sprain of the medial collateral ligament. LATERAL COMPARTMENT LATERAL MENISCUS: Undersurface tear of posterior junction and horn. CARTILAGE: Moderate thinning; no focal tear. BONES: No marrow pathology, fracture, or significant arthropathy. LCL/POSTEROLAT COMPLEX: Normal lateral collateral ligament, fascicles, lateral capsule and ligaments. ANTERIOR COMPARTMENT PATELLA: No marrow pathology, fracture, or significant arthropathy. CARTILAGE: Moderate thinning; no focal tear. TENDONS: Prominent degenerative enthesophyte projecting cephalad from the patella. EFFUSION: Small joint effusion. ACL: Normal appearing ligament. PCL: Normal appearing ligament. MENISCOFEMORAL: Normal meniscofemoral ligaments. OTHER: Small amount of free fluid within the prepatellar bursa. MR/MR knee LT wo con IMPRESSION: 1. Examination slightly limited by patient body habitus. 2. Undersurface tear of the posterior horn of the lateral meniscus. 3. Prominent intrasubstance degeneration of the medial meniscus and extrusion from the joint space. 4. Moderate cartilage thinning throughout the knee. No appreciable tear or focal defect. 5. Small joint effusion and mild-moderate prepatellar bursitis. Electronically authenticated by: PRIYA PEREZ Date: 03/07/2024 04:30 Dictated By: Priya Perez M.D. Signed By: 03/07/24432 DD/ 9 TD/TT: Sessions Clerk: Procedure Note Radiology, Radiologist, MD - 03/07/2024 [place] [address] Magnetic Resonance Report Signed Patient: ANKUR REILLY AMR#: [id number] : 1945cct:[id number] Age/Sex: 78 / MADM Date: 03/06/24 Loc: MRI Attending Dr: Priya Gao M.D. Ordering Physician: Priya Gao M.D. Date of Service: 03/06/24 Procedure(s): MR knee LT wo con Accession Number(s): [id number] cc: BENI NGUYEN ; Priya Gao M.D. The [place] [address] Patient Name: ANKUR REILLY MRN: [id number] date: 1945 Sex: M Assigned Patient Location: MRI Current Patient Location: Accession/Order Number: [id number] Exam Date: 03/06/2024 07:00 Report Date: 03/07/2024 04:30 At the request of: PRIYA GAO Procedure: MR knee LT wo con EXAMINATION: MR knee LT wo con HISTORY: left knee pain COMPARISON: No relevant comparison available. TECHNIQUE: A complete multi-planar MRI was performed. FINDINGS: MEDIAL COMPARTMENT MEDIAL MENISCUS: Mostly extruded from the joint space with increased M1gfhdxc throughout suggestive of intrasubstance degeneration. No convincing tear. CARTILAGE: Moderate thinning; no focal tear. BONES: No marrow pathology, fracture, or significant arthropathy. MCL AND MEDIAL CAPSULE: Grade I sprain of the medial collateral ligament. LATERAL COMPARTMENT LATERAL MENISCUS: Undersurface tear of posterior junction and horn. CARTILAGE: Moderate thinning; no focal tear. BONES: No marrow pathology, fracture, or significant arthropathy. LCL/POSTEROLAT COMPLEX: Normal lateral collateral ligament, fascicles,lateral capsule and ligaments. ANTERIOR COMPARTMENT PATELLA: No marrow pathology, fracture, or significant arthropathy. CARTILAGE: Moderate thinning; no focal tear. TENDONS: Prominent degenerative enthesophyte projecting cephalad from the patella. EFFUSION: Small joint effusion. ACL: Normal appearing ligament. PCL: Normal appearing ligament. MENISCOFEMORAL: Normal meniscofemoral ligaments. OTHER: Small amount of free fluid within the prepatellar bursa. MR/MR knee LT wo con IMPRESSION: 1. Examination slightly limited by patient body habitus. 2. Undersurface tear of the posterior horn of the lateral meniscus. 3. Prominent intrasubstance degeneration of the medial meniscus andextrusion from the joint space. 4. Moderate cartilage thinning throughout the knee. No appreciable tear or focal defect. 5. Small joint effusion and mild-moderate prepatellar bursitis. Electronically authenticated by: PRIYA PEREZ Date: 03/07/2024 04:30 Dictated By: Priya Perez M.D. Signed By:03/07/24432 DD/ 9 TD/TT: Sessions Clerk: Generic External Data Provider [facility] Final Result documented in this encounter Visit Diagnoses Not on filedocumented in this encounter Care Teams Glass Engraver Relationship Specialty Start Date End Date Beni Nguyen MD 112 [facility] 110 [place] [address] PCP - General Internal Medicine 01/02/23 Beni Nguyen MD [address] [facility] 110 [place] [address] PCP - ACO Reach 01/12/23 Esther Connolly RN Clinical Advocate Family Medicine 09/27/24 11/08/24 Anastasia Rayo LPN 11/08/24 documented as of this encounter
--- OUTSIDE RECORDS SUMMARY | 2025-01-15 14:06 | XMS_ITS | Encounter Summary ---
Author Organization [facility] Address [address] [place] [address] Care Team Providers Care Concrete Worker Name Role Phone Beni Nguyen MD Primary Care Provider [phone] Beni Nguyen MD Unavailable [phone] Esther Connolly RN Unavailable [phone] Anastasia Rayo LPN Unavailable Unavailable Encounter Details Date Type Department Care Team (Late st Contact Info) Description 06/24/2024 Abstract [facility] 112 [facility] 110 [place] [address] Beni Nguyen MD 112 [facility] 110 [place] [address] Social History Tobacco Use Types Packs/Day Years [...] How often do you attend chur or synagogue services? Never 03/17/2023 Do you belong to any clubs o r organizations such as episcopal groups, unions, fraternal or athletic groups, or [...] Recorded Patient Health Questionnaire-2 Score 0 10/05/2023 [facility] of Occupat [...] Upcoming Encounters Date Type Department Care Team ([facility] st Contact Info) Description 01/30/2025 3:10 PM EDT Procedure Visit [facility] 112 [facility] 120 [place] [address] Real Og DPM 3006 [facility] 5 [place] [address] 05/05/2025 1:30 PM EDT Office Visit [facility]ERS [address] [place] [address] Sandro Saunders DO [address] [place] [address] documented as of this encounter Visit Diagnoses Not on filedocumented in this encounter Care Teams Concrete Worker Relationship Specialty Start Date End Date Beni Nguyen MD [address] [facility] 110 [place] [address] PCP - General Internal Medicine 01/02/23 Beni Nguyen MD [address] [facility] 110 [place] [address] PCP - ACO Reach 01/12/23 Esther Connolly, HEATHER Clinical Advocate Family Medicine 09/27/24 11/08/24 Anastasia Rayo LPN 11/08/24 documented as of this encounter
--- OUTSIDE RECORDS SUMMARY | 2025-01-15 14:06 | XMS_ITS | Encounter Summary ---
Author Organization [facility] Address [address] [place] [address] Care Team Providers Care Car Sales Consultant Name Role Phone Beni Nguyen MD Primary Care Provider [phone] Beni Nguyen MD Unavailable [phone] Esther Connolly RN Unavailable [phone] Anastasia Rayo LPN Unavailable Unavailable Encounter Details Date Type Department Care Team (Late st Contact Info) Description 01/31/2024 Abstract [facility] 112 [facility] 110 [place] [address] Beni Nguyen MD 112 [facility] 110 [place], [place] [address] Social History Tobacco Use Types Packs/Day Years [...] often do you attend chur ch or rastafari services? Never 03/17/2023 Do you belong to [...] Recorded Patient Health Questionnaire-2 Score 0 10/05/2023 [facility] Questionnaire Answer Date [...] Upcoming Encounters Date Type Department Care Team ([facility] st Contact Info) Description 01/30/2025 3:10 PM EDT Procedure Visit [facility] POD[facility] 112 [facility] 120 [place] [address] Real Og DPMarcial 3006 [facility] 5 [place] [address] 05/05/2025 1:30 PM EDT Office Visit [facility]ERS [address] [place] [address] Sandro Saunders DO [address] [place] [address] documented as of this encounter Visit Diagnoses Not on filedocumented in this encounter Care Teams Car Sales Consultant Relationship Specialty Start Date End Date Beni Nguyen MD 112 [facility] 110 [place] [address] PCP - General Internal Medicine 01/02/23 Beni Nguyen MD 112 [facility] 110 [place] [address] PCP - ACO Reach 01/12/23 Esther Connolly, RN Clinical Advocate Family Medicine 09/27/24 11/08/24 Anastasia Rayo LPN 11/08/24 documented as of this encounter
--- OUTSIDE RECORDS SUMMARY | 2025-01-15 14:06 | XMS_ITS | Encounter Summary ---
Author Organization [facility] Address [address] [place] [address] Care Team Providers Care Sales Account Representative Name Role Phone Beni Nguyen MD Primary Care Provider [phone] Beni Nguyen MD Unavailable [phone] Esther Connolly RN Unavailable [phone] Anastasia Rayo LPN Unavailable Unavailable Encounter Details Date Type Department Care Team (Late st Contact Info) Description 08/23/2023 Abstract [facility] 112 [facility] 110 [place] [address] Beni Nguyen MD 112 [facility] 110 [place], [place] [address] Social History Tobacco Use Types Packs/Day Years [...] Upcoming Encounters Date Type Department Care Team ([facility] st Contact Info) Description 01/30/2025 3:10 PM EDT Procedure Visit [facility]ODI[facility] 112 [facility] 120 [place] [address] Real Og DPM 3006 [facility] 5 [place] [address] 05/05/2025 1:30 PM EDT Office Visit [facility]ERS [address] [place] [address] Sandro Saunders DO [address] [place] [address] documented as of this encounter Visit Diagnoses Not on filedocumented in this encounter Care Teams Sales Account Representative Relationship Specialty Start Date End Date Beni Nguyen MD [address] [place] [address] PCP - General Internal Medicine 01/02/23 Beni Nguyen MD 112 [facility] 110 [place] [address] PCP - ACO Reach 01/12/23 Esther Connolly, HEATHER Clinical Advocate Family Medicine 09/27/24 11/08/24 Anastasia Rayo LPN 11/08/24 documented as of this encounter
--- OUTSIDE RECORDS SUMMARY | 2025-01-15 14:06 | XMS_ITS | Encounter Summary ---
Author Organization [facility] Address [address] [place] [address] Care Team Providers Care Bellman Captain Name Role Phone Beni Nguyen MD Primary Care Provider [phone] Beni Nguyen MD Unavailable [phone] Esther Connolly RN Unavailable [phone] Anastasia Rayo LPN Unavailable Unavailable Encounter Details Date Type Department Care Team (Late st Contact Info) Description 01/31/2024 Abstract [facility] 112 [facility] 110 [place] [address] Beni Nguyen MD 112 [facility] 110 [place], [place] [id number] Social History Tobacco Use Types Packs/Day Years [...] often do you attend chur ch or church services? Never 03/17/2023 Do you belong to any clubs o r organizations such as roman catholic groups, unions, fraternal or athletic groups, or [...] Recorded Patient Health Questionnaire-2 Score 0 10/05/2023 [facility] Questionnaire Answer Date [...] CI PODIATRY 112 [facility] 120 [place] [address] Real Og DPMarcial 3006 [facility] 5 [place] [address] 05/05/2025 1:30 PM EDT Office Visit [facility] SUM[facility]ERS [address] [place] [address] Sandro Saunders DO [address] [place] [address] documented as of this encounter Visit Diagnoses Not on filedocumented in this encounter Care Teams Bellman Captain Relationship Specialty Start Date End Date Beni Nguyen MD 112 [facility] 110 [place] [address] PCP - General Internal Medicine 01/02/23 Beni Nguyen MD 112 [facility] 110 [place] [address] PCP - ACO Reach 01/12/23 Esther Connolly, RN Clinical Advocate Family Medicine 09/27/24 11/08/24 Anastasia Rayo LPN 11/08/24 documented as of this encounter
--- OUTSIDE RECORDS SUMMARY | 2025-01-15 14:06 | XMS_ITS | Encounter Summary ---
Author Organization [facility] Address [address] [place] [address] Care Team Providers Care Primer Inserting Machine Adjuster Name Role Phone Beni Nguyen MD Primary Care Provider [phone] Beni Nguyen MD Unavailable [phone] Esther Connolly RN Unavailable [phone] Anastasia Rayo LPN Unavailable Unavailable Encounter Details Date Type Department Care Team (Late st Contact Info) Description 05/24/2023 Abstract [facility] FM 112 [facility] 110 [place] [address] Beni Nguyen MD 112 [facility] 110 [place] [address] Social History Tobacco Use Types Packs/Day Years [...] and heating? Not hard at all 03/17/2023 [facility] of Occupat ional Health - [...] place to sleep or slept in a correction (including now)? No 03/17/2023 Sex and Gender Information Value Date Recorded Sex Assigned at Not on file Legal Sex Male 6:56 PM EDT Gender Identity Not on file Sexual Orientation Not on file documented as of this encounter Plan of Treatment Upcoming Encounters Date Type Department Care Team ([facility] st Contact Info) Description 01/30/2025 3:10 PM EDT Procedure Visit [facility] PODIATRY 112 [facility] 120 [place] [address] Real Og DPM 3006 [facility] 5 [place] [address] 05/05/2025 1:30 PM EDT Office Visit [facility] SUMMERS [address] [place] [address] Sandro Saunders DO [address] [place] [address] documented as of this encounter Visit Diagnoses Not on filedocumented in this encounter Care Teams Primer Inserting Machine Adjuster Relationship Specialty Start Date End Date Beni Nguyen MD [address] [place] [address] PCP - General Internal Medicine 01/02/23 Beni Nguyen MD 112 [facility] 110 [place] [address] PCP - ACO Reach 01/12/23 Esther Connolly, HEATHER Clinical Advocate Family Medicine 09/27/24 11/08/24 Anastasia Rayo LPN 11/08/24 documented as of this encounter
--- OUTSIDE RECORDS SUMMARY | 2025-01-15 14:06 | XMS_ITS | Encounter Summary ---
Author Organization [facility] Address [address] [place] [address] Care Team Providers Care Hair Spinner Name Role Phone Beni Nguyen MD Primary Care Provider [phone] Beni Nguyen MD Unavailable [phone] Esther Connolly RN Unavailable [phone] Anastasia Rayo LPN Unavailable Unavailable Encounter Details Date Type Department Care Team (Late st Contact Info) Description 09/01/2023 Abstract [facility] 112 [facility] 110 [place] [address] Beni Nguyen MD 112 [facility] 110 [place], [place] [phone] Social History Tobacco Use Types Packs/Day Years [...] often do you attend chur ch or mosque services? Never 03/17/2023 Do you belong to any clubs o r organizations such as restoration groups, unions, fraternal or athletic groups, or [...] and heating? Not hard at all 03/17/2023 [facility] of Occupat ional Health - Occupational [...] EDT Procedure Visit [facility] PODIATRY 112 [facility] 120 [place] [address] Real Og DPM 3006 [facility] 5 [place] [address] 05/05/2025 1:30 PM EDT Office Visit [facility] SUM[facility]ERS [address] [place] [address] Sandro Saunders DO [address] [place] [address] documented as of this encounter Visit Diagnoses Not on filedocumented in this encounter Care Teams Hair Spinner Relationship Specialty Start Date End Date Beni Nguyen MD [address] [place] [address] PCP - General Internal Medicine 01/02/23 Beni Nguyen MD 112 [facility] 110 [place] [address] PCP - ACO Reach 01/12/23 Esther Connolly, HEATHER Clinical Advocate Family Medicine 09/27/24 11/08/24 Anastasia Rayo LPN 11/08/24 documented as of this encounter
--- OUTSIDE RECORDS SUMMARY | 2025-01-15 14:06 | XMS_ITS | Encounter Summary ---
Author Organization [facility] Address [address] [place] [address] Care Team Providers Care Fellmongering Machine Operator Name Role Phone Beni Nguyen MD Primary Care Provider [phone] Beni Nguyen MD Unavailable [phone] Esther Connolly RN Unavailable [phone] Anastasia Rayo LPN Unavailable Unavailable Encounter Details Date Type Department Care Team (Late st Contact Info) Description 06/25/2024 Abstract [facility] 112 [facility] 110 [place] [address] Beni Nguyen MD 112 [facility] 110 [place] [address] Social History Tobacco Use Types Packs/Day Years [...] any clubs o r organizations such as yazidism groups, unions, fraternal or athletic groups, or [...] Recorded Patient Health Questionnaire-2 Score 0 10/05/2023 [facility] of Occupat ional Health - [...] Upcoming Encounters Date Type Department Care Team ([facility] st Contact Info) Description 01/30/2025 3:10 PM EDT Procedure Visit [facility]ODI[facility] 112 [facility] 120 [place] [address] Real Og DPM 3006 [facility] 5 [place] [address] 05/05/2025 1:30 PM EDT Office Visit [facility]ERS [address] [place] [address] Sandro Saunders DO [address] [place] [address] documented as of this encounter Visit Diagnoses Not on filedocumented in this encounter Care Teams Fellmongering Machine Operator Relationship Specialty Start Date End Date Beni Nguyen MD [address] [facility] 110 [place] [address] PCP - General Internal Medicine 01/02/23 Beni Nguyen MD [address] [facility] 110 [place] [address] PCP - ACO Reach 01/12/23 Esther Connolly, HEATHER Clinical Advocate Family Medicine 09/27/24 11/08/24 Anastasia Rayo LPN 11/08/24 documented as of this encounter
--- OUTSIDE RECORDS SUMMARY | 2025-01-15 14:06 | XMS_ITS | Encounter Summary ---
Author Organization [facility] Address [address] [place] [address] Care Team Providers Care Casting Associate Name Role Phone Beni Nguyen MD Primary Care Provider [phone] Beni Nguyen MD Unavailable [phone] Esther Connolly RN Unavailable [phone] Anastasia Rayo LPN Unavailable Unavailable Encounter Details Date Type Department Care Team (Late st Contact Info) Description 05/23/2023 Abstract [facility] 112 [facility] 110 [place] [address] Beni Nguyen MD [address] [facility] 110 [place] [address] Social History Tobacco Use Types Packs/Day Years [...] often do you attend chur ch or baptist services? Never 03/17/2023 Do you belong to [...] and heating? Not hard at all 03/17/2023 [facility] of Occupat ional Health - [...] Upcoming Encounters Date Type Department Care Team ([facility] st Contact Info) Description 01/30/2025 3:10 PM EDT Procedure Visit [facility] 112 [facility] 120 [place] [address] Real Og DPM 3006 [facility] 5 [place] [address] 05/05/2025 1:30 PM EDT Office Visit RANDELL SUMMERS [address] [place] [address] Sandro Saunders DO [address] [place] [address] documented as of this encounter Visit Diagnoses Not on filedocumented in this encounter Care Teams Casting Associate Relationship Specialty Start Date End Date Beni Nguyen MD [address] [place] [address] [place] [address] PCP - General Internal Medicine 01/02/23 Beni Nguyen MD [address] [facility] 110 [place] [address] PCP - ACO Reach 01/12/23 Esther Connolly, HEATHER Clinical Advocate Family Medicine 09/27/24 11/08/24 Anastasia Rayo LPN 11/08/24 documented as of this encounter
--- OUTSIDE RECORDS SUMMARY | 2025-01-15 14:06 | XMS_ITS | Encounter Summary ---
Author Organization [facility] Address [address] [place] [address] Care Team Providers Care Investor Relations Coordinator Name Role Phone Beni Nguyen MD Primary Care Provider [phone] Beni Nguyen MD Unavailable [phone] Esther Connolly RN Unavailable [phone] Anastasia Rayo LPN Unavailable Unavailable Encounter Details Date Type Department Care Team (Late st Contact Info) Description 08/04/2023 Abstract [facility] 112 [facility] 110 [place] [address] Beni Nguyen MD 112 [facility] 110 [place] [address] Social History Tobacco Use Types Packs/Day Years [...] often do you attend chur ch or moravian services? Never 03/17/2023 Do you belong to any clubs o r organizations such as hindu groups, unions, fraternal or athletic groups, or [...] Upcoming Encounters Date Type Department Care Team ([facility] st Contact Info) Description 01/30/2025 3:10 PM EDT Procedure Visit [facility] 112 [facility] 120 [place] [address] Real Og DPM 3006 [facility] 5 [place] [address] 05/05/2025 1:30 PM EDT Office Visit RANDELL SUMMERS [address] [place] [address] Sandro Saunders DO [address] [place] [address] documented as of this encounter Visit Diagnoses Not on filedocumented in this encounter Care Teams Investor Relations Coordinator Relationship Specialty Start Date End Date Beni Nguyen MD [address] [place] [address] [place] [address] PCP - General Internal Medicine 01/02/23 Beni Nguyen MD 112 [facility] 110 [place] [address] PCP - ACO Reach 01/12/23 Esther Connolly, HEATHER Clinical Advocate Family Medicine 09/27/24 11/08/24 Anastasia Rayo LPN 11/08/24 documented as of this encounter
--- OUTSIDE RECORDS SUMMARY | 2025-01-15 14:06 | XMS_ITS | Encounter Summary ---
Author Organization [facility] Address [address] [place] [address] Care Team Providers Care Preventive Medicine Officer Name Role Phone Beni Nguyen MD Primary Care Provider [phone] Beni Nguyen MD Unavailable [phone] Esther Connolly RN Unavailable [phone] Anastasia Rayo LPN Unavailable Unavailable Encounter Details Date Type Department Care Team (Late st Contact Info) Description 06/29/2023 Abstract [facility] 112 [facility] [facility] 110 [place] [address] Beni Nguyen MD 112 [facility] 110 [place], [place] [address] Social History Tobacco Use Types Packs/Day Years [...] often do you attend chur ch or restorationist services? Never 03/17/2023 Do you belong to [...] and heating? Not hard at all 03/17/2023 [facility] of Occupat ional Health - [...] CI PODIATRY 112 [facility] 120 [place] [address] Real Og DPM 3006 [facility] 5 [place] [address] 05/05/2025 1:30 PM EDT Office Visit RANDELL SUMMERS [address] [place] [address] Sandro Saunders DO [address] [place] [address] documented as of this encounter Visit Diagnoses Not on filedocumented in this encounter Care Teams Preventive Medicine Officer Relationship Specialty Start Date End Date Beni Nguyen MD [address] [place] [address] [place] [address] PCP - General Internal Medicine 01/02/23 Beni Nguyen MD 112 [facility] 110 [place] [address] PCP - ACO Reach 01/12/23 Esther Connolly, HEATHER Clinical Advocate Family Medicine 09/27/24 11/08/24 Anastasia Rayo LPN 11/08/24 documented as of this encounter
--- OUTSIDE RECORDS SUMMARY | 2025-01-15 14:06 | XMS_ITS | Encounter Summary ---
Author Organization [facility] Address [address] [place] [address] Care Team Providers Care Pearl Diver Name Role Phone Beni Nguyen MD Primary Care Provider [phone] Beni Nguyen MD Unavailable [phone] Esther Connolly RN Unavailable [phone] Anastasia Rayo LPN Unavailable Unavailable Encounter Details Date Type Department Care Team (Late st Contact Info) Description 06/20/2024 Abstract [facility] 112 [facility] 110 [place] [address] Beni Nguyen MD 112 [facility] 110 [place] [address] Social History Tobacco Use Types Packs/Day Years [...] How often do you attend chur or mandaen services? Never 03/17/2023 Do you [...] Recorded Patient Health Questionnaire-2 Score 0 10/05/2023 [facility] of Occupat ional Health - Occupational [...] Procedure Visit [facility] PODIAT[facility] 112 [facility] 120 [place] [address] Real Og DPM 3006 [facility] 5 [place] [address] 05/05/2025 1:30 PM EDT Office Visit RANDELL SUMMERS [address] [place] [address] Sandro Saunders DO [address] [place] [address] documented as of this encounter Visit Diagnoses Not on filedocumented in this encounter Care Teams Pearl Diver Relationship Specialty Start Date End Date Beni Nguyen MD [address] [facility] 110 [place] [address] PCP - General Internal Medicine 01/02/23 Beni Nguyen MD [address] [facility] [address] [place] [address] PCP - ACO Reach 01/12/23 Esther Connolly, HEATHER Clinical Advocate Family Medicine 09/27/24 11/08/24 Anastasia Rayo LPN 11/08/24 documented as of this encounter
--- OUTSIDE RECORDS SUMMARY | 2025-01-15 14:06 | XMS_ITS | Encounter Summary ---
Author Organization [facility] Address [address] [place] [address] Care Team Providers Care Historic Interpreter Name Role Phone Beni Nguyen MD Primary Care Provider Beni Nguyen MD Unavailable [phone] Esther Connolly RN Unavailable [phone] Anastasia Rayo LPN Unavailable Unavailable Encounter Details Date Type Department Care Team (Late st Contact Info) Description 05/23/2023 Abstract [facility] 112 [facility] [facility] 110 [place] [address] Beni Nguyen MD [address] [facility] 110 [place] [address] Social History Tobacco Use Types Packs/Day Years [...] often do you attend chur ch or pentecostalism services? Never 03/17/2023 Do you belong to [...] Upcoming Encounters Date Type Department Care Team ([facility] st Contact Info) Description 01/30/2025 3:10 PM EDT Procedure Visit [facility] 112 [facility] 120 [place] [address] Real Og DPM 3006 [facility] 5 [place] [address] 05/05/2025 1:30 PM EDT Office Visit RANDELL SUMMERS [address] [place] [address] Sandro Saunders DO [address] [place] [address] documented as of this encounter Visit Diagnoses Not on filedocumented in this encounter Care Teams Historic Interpreter Relationship Specialty Start Date End Date Beni Nguyen MD [address] [place] [address] PCP - General Internal Medicine 01/02/23 Beni Nguyen MD 112 [facility] 110 [place] [address] PCP - ACO Reach 01/12/23 Esther Connolly, HEATHER Clinical Advocate Family Medicine 09/27/24 11/08/24 Anastasia Rayo LPN 11/08/24 documented as of this encounter
--- OUTSIDE RECORDS SUMMARY | 2025-01-15 14:06 | XMS_ITS | Encounter Summary ---
Author Organization [facility] Address [address] [place] [address] Care Team Providers Care Educational Advisor Name Role Phone Beni Nguyen MD Primary Care Provider [phone] Beni Nguyen MD Unavailable [phone] Esther Connolly RN Unavailable [phone] Anastasia Rayo LPN Unavailable Unavailable Encounter Details Date Type Department Care Team (Late st Contact Info) Description 05/23/2023 Abstract [facility] 112 [facility] [facility] 110 [place] [address] Beni Nguyen MD 112 [facility] 110 [place] [address] Social History Tobacco Use Types Packs/Day Years [...] often do you attend chur ch or caodaism services? Never 03/17/2023 Do you belong to [...] place to sleep or slept in a fdc (including now)? No 03/17/2023 Sex and Gender Information Value Date Recorded Sex Assigned at Not on file Legal Sex Male 6:56 PM EDT Gender Identity Not on file Sexual Orientation Not on file documented as of this encounter Plan of Treatment Upcoming Encounters Date Type Department Care Team ([facility] st Contact Info) Description 01/30/2025 3:10 PM EDT Procedure Visit [facility]OD[facility] 112 [facility] 120 [place] [address] Real Og DPM 3006 [facility] 5 [place] [address] 05/05/2025 1:30 PM EDT Office Visit RANDELL SUMMERS [address] [place] [address] Sandro Saunders DO [address] [place] [address] documented as of this encounter Visit Diagnoses Not on filedocumented in this encounter Care Teams Educational Advisor Relationship Specialty Start Date End Date Beni Nguyen MD [address] [place] [address] PCP - General Internal Medicine 01/02/23 Beni Nguyen MD 112 [facility] 110 [place] [address] PCP - ACO Reach 01/12/23 Esther Connolly, HEATHER Clinical Advocate Family Medicine 09/27/24 11/08/24 Anastasia Rayo LPN 11/08/24 documented as of this encounter
--- OUTSIDE RECORDS SUMMARY | 2025-01-15 14:06 | XMS_ITS | Encounter Summary ---
Author Organization [facility] Address [address] [place] [address] Care Team Providers Care Chief Engineer Research Name Role Phone Beni Nguyen MD Primary Care Provider [phone] Beni Nguyen MD Unavailable [phone] Esther Connolly RN Unavailable [phone] Anastasia Rayo LPN Unavailable Unavailable Encounter Details Date Type Department Care Team (Late st Contact Info) Description 06/24/2024 Abstract [facility] 112 [facility] 110 [place] [address] Beni Nguyen MD 112 [facility] 110 [place] [address] Social History Tobacco Use Types Packs/Day Years [...] How often do you attend chur or roman catholic services? Never 03/17/2023 Do you belong to [...] Recorded Patient Health Questionnaire-2 Score 0 10/05/2023 [facility] of Occupat ional Health - Occupational [...] place to sleep or slept in a residential (including now)? No 03/17/2023 Sex and Gender Information Value Date Recorded Sex Assigned at Not on file Legal Sex Male 6:56 PM EDT Gender Identity Not on file Sexual Orientation Not on file documented as of this encounter Plan of Treatment Upcoming Encounters Date Type Department Care Team ([facility] st Contact Info) Description 01/30/2025 3:10 PM EDT Procedure Visit [facility] PODIATRY 112 [facility] 120 [place] [address] Real Og DPM 3006 [facility] 5 [place] [address] 05/05/2025 1:30 PM EDT Office Visit RANDELL SUMMERS [address] [place] [address] Sandro Saunders DO [address] [place] [address] documented as of this encounter Visit Diagnoses Not on filedocumented in this encounter Care Teams Chief Engineer Research Relationship Specialty Start Date End Date Beni Nguyen MD [address] [facility] 110 [place] [address] PCP - General Internal Medicine 01/02/23 Beni Nguyen MD [address] [facility] 110 [place] [address] PCP - ACO Reach 01/12/23 Esther Connolly, HEATHER Clinical Advocate Family Medicine 09/27/24 11/08/24 Anastasia Rayo LPN 11/08/24 documented as of this encounter
--- OUTSIDE RECORDS SUMMARY | 2025-01-15 14:07 | XMS_ITS | Encounter Summary ---
Author Organization [facility] Address [address] [place] [address] Care Team Providers Care Pipe Fitter Ammonia Name Role Phone Beni Nguyen MD Primary Care Provider [phone] Beni Nguyen MD Unavailable [phone] Esther Connolly RN Unavailable [phone] Anastasia Rayo LPN Unavailable Unavailable Encounter Details Date Type Department Care Team (Late st Contact Info) Description 07/08/2024 Abstract [facility] 112 [facility] 110 [place] [address] Beni Nguyen MD 112 [facility] 110 [place] [address] Social History Tobacco Use Types Packs/Day Years [...] How often do you attend chur or scientology services? Never 03/17/2023 Do you belong to [...] Recorded Patient Health Questionnaire-2 Score 0 10/05/2023 [facility] of Occupat ional Health - [...] Upcoming Encounters Date Type Department Care Team ([facility] st Contact Info) Description 01/30/2025 3:10 PM EDT Procedure Visit [facility] PODIATRY 112 [facility] 120 [place] [address] Real Og DPM 3006 [facility] 5 [place] [address] 05/05/2025 1:30 PM EDT Office Visit RANDELL SUMMERS [address] [place] [address] Sandro Saunders DO [address] [place] [address] documented as of this encounter Visit Diagnoses Not on filedocumented in this encounter Care Teams Pipe Fitter Ammonia Relationship Specialty Start Date End Date Beni Nguyen MD [address] [facility] 110 [place] [address] PCP - General Internal Medicine 01/02/23 Beni Nguyen MD [address] [facility] 110 [place] [address] PCP - ACO Reach 01/12/23 Esther Connolly, HEATHER Clinical Advocate Family Medicine 09/27/24 11/08/24 Anastasia Rayo LPN 11/08/24 documented as of this encounter
--- OUTSIDE RECORDS SUMMARY | 2025-01-15 14:07 | XMS_ITS | Encounter Summary ---
Author Organization [facility] Address [address] [place] [address] Care Team Providers Care Printed Circuit Boards Solder Leveler Name Role Phone Beni Nguyen MD Primary Care Provider [phone] Beni Nguyen MD Unavailable [phone] Esther Connolly RN Unavailable [phone] Anastasia Rayo LPN Unavailable Unavailable Encounter Details Date Type Department Care Team (Late st Contact Info) Description 07/24/2024 Abstract [facility] 112 [facility] 110 [place] [address] Beni Nguyen MD 112 [facility] 110 [place] [address] Social History Tobacco Use Types Packs/Day Years [...] How often do you attend chur or adventism services? Never 03/17/2023 Do you belong to any clubs o r organizations such as baptist groups, unions, fraternal or athletic groups, or [...] Recorded Patient Health Questionnaire-2 Score 0 10/05/2023 [facility] of Occupat ional [...] Upcoming Encounters Date Type Department Care Team ([facility] st Contact Info) Description 01/30/2025 3:10 PM EDT Procedure Visit [facility] PODIATRY 112 [facility] 120 [place] [address] Real Og DPM 3006 [facility] 5 [place] [address] 05/05/2025 1:30 PM EDT Office Visit RANDELL SUMMERS [address] [place] [address] Sandro Saunders DO [address] [place] [address] documented as of this encounter Visit Diagnoses Not on filedocumented in this encounter Care Teams Printed Circuit Boards Solder Leveler Relationship Specialty Start Date End Date Beni Nguyen MD [address] [facility] 110 [place] [address] PCP - General Internal Medicine 01/02/23 Beni Nguyen MD [address] [facility] [address] [place] [address] PCP - ACO Reach 01/12/23 Esther Connolly, HEATHER Clinical Advocate Family Medicine 09/27/24 11/08/24 Anastasia Rayo LPN 11/08/24 documented as of this encounter
--- OUTSIDE RECORDS SUMMARY | 2025-01-15 14:07 | XMS_ITS | Encounter Summary ---
Author Organization [facility] Address [address] [place] [address] Care Team Providers Care Curing Oven Attendant Name Role Phone Beni Nguyen MD Primary Care Provider [phone] Beni Nguyen MD Unavailable [phone] Esther Connolly RN Unavailable [phone] Anastasia Rayo LPN Unavailable Unavailable Encounter Details Date Type Department Care Team (Late st Contact Info) Description 07/10/2024 Abstract [facility] [address] [facility] 110 [place] [address] Beni Nguyen MD 112 [facility] 110 [place] [address] Social History Tobacco Use Types Packs/Day Years [...] How often do you attend chur or lutheran services? Never 03/17/2023 Do you belong to any clubs o r organizations such as christianity groups, unions, fraternal or athletic groups, or [...] Recorded Patient Health Questionnaire-2 Score 0 10/05/2023 [facility] of Occupat ional Health - Occupational [...] Upcoming Encounters Date Type Department Care Team ([facility] st Contact Info) Description 01/30/2025 3:10 PM EDT Procedure Visit [facility] PODI[facility] 112 [facility] 120 [place] [address] Real Og DPM 3006 [facility] 5 [place] [address] 05/05/2025 1:30 PM EDT Office Visit RANDELL SUMMERS [address] [place] [address] Sandro Saunders DO [address] [place] [address] documented as of this encounter Visit Diagnoses Not on filedocumented in this encounter Care Teams Curing Oven Attendant Relationship Specialty Start Date End Date Beni Nguyen MD [address] [facility] 110 [place] [address] PCP - General Internal Medicine 01/02/23 Beni Nguyen MD [address] [facility] 110 [place] [address] PCP - ACO Reach 01/12/23 Esther Connolly, HEATHER Clinical Advocate Family Medicine 09/27/24 11/08/24 Anastasia Rayo LPN 11/08/24 documented as of this encounter
--- OUTSIDE RECORDS SUMMARY | 2025-01-15 14:07 | XMS_ITS | Encounter Summary ---
Author Organization [facility] Address [address] [place] [address] Care Team Providers Care Infection Control Preventionist Name Role Phone Beni Nguyen MD Primary Care Provider [phone] Beni Nguyen MD Unavailable [phone] Esther Connolly RN Unavailable [phone] Anastasia Rayo LPN Unavailable Unavailable Encounter Details Date Type Department Care Team (Late st Contact Info) Description 07/08/2024 Abstract [facility] 112 [facility] 110 [place] [address] Beni Nguyen MD 112 [facility] 110 [place] [address] Social History Tobacco Use Types Packs/Day Years [...] any clubs o r organizations such as faith groups, unions, fraternal or athletic groups, or [...] Recorded Patient Health Questionnaire-2 Score 0 10/05/2023 [facility] of Occupat ional Health - Occupational [...] Upcoming Encounters Date Type Department Care Team ([facility] st Contact Info) Description 01/30/2025 3:10 PM EDT Procedure Visit [facility] PODIATRY 112 [facility] 120 [place] [address] Real Og DPM 3006 [facility] 5 [place] [address] 05/05/2025 1:30 PM EDT Office Visit RANDELL SUMMERS [address] [place] [address] Sandro Saunders DO [address] [place] [address] documented as of this encounter Visit Diagnoses Not on filedocumented in this encounter Care Teams Infection Control Preventionist Relationship Specialty Start Date End Date Beni Nguyen MD [address] [facility] 110 [place] [address] PCP - General Internal Medicine 01/02/23 Beni Nguyen MD [address] [facility] 110 [place] [address] PCP - ACO Reach 01/12/23 Esther Connolly, HEATHER Clinical Advocate Family Medicine 09/27/24 11/08/24 Anastasia Rayo LPN 11/08/24 documented as of this encounter
--- OUTSIDE RECORDS SUMMARY | 2025-01-15 14:07 | XMS_ITS | Encounter Summary ---
Author Organization [facility] Address [address] [place] [address] Care Team Providers Care Wind Tunnel Engineer Name Role Phone Beni Nguyen MD Primary Care Provider [phone] Beni Nguyen MD Unavailable [phone] Esther Connolly RN Unavailable [phone] Anastasia Rayo LPN Unavailable Unavailable Encounter Details Date Type Department Care Team (Late st Contact Info) Description 07/11/2024 Abstract [facility] 112 [facility] 110 [place] [address] Beni Nguyen MD 112 [facility] 110 [place] [address] Social History Tobacco Use Types Packs/Day Years [...] How often do you attend chur or temple services? Never 03/17/2023 Do you [...] Recorded Patient Health Questionnaire-2 Score 0 10/05/2023 [facility] of Occupat ional Health - [...] EDT Procedure Visit [facility]OD[facility]RY 112 [facility] 120 [place] [address] Real Og DPM 3006 [facility] 5 [place] [address] 05/05/2025 1:30 PM EDT Office Visit RANDELL SUMMERS [address] [place] [address] Sandro Saunders DO [address] [place] [address] documented as of this encounter Visit Diagnoses Not on filedocumented in this encounter Care Teams Wind Tunnel Engineer Relationship Specialty Start Date End Date Beni Nguyen MD [address] [facility] 110 [place] [address] PCP - General Internal Medicine 01/02/23 Beni Nguyen MD [address] [facility] 110 [place] [address] PCP - ACO Reach 01/12/23 Esther Connolly, HEATHER Clinical Advocate Family Medicine 09/27/24 11/08/24 Anastasia Rayo LPN 11/08/24 documented as of this encounter
--- OUTSIDE RECORDS SUMMARY | 2025-01-15 14:07 | XMS_ITS | Encounter Summary ---
Author Organization [facility] Address [address] [place] [address] Care Team Providers Care Associate Professor Of Biblical Studies Name Role Phone Beni Nguyen MD Primary Care Provider [phone] Beni Nguyen MD Unavailable [phone] Esther Connolly RN Unavailable [phone] Anastasia Rayo LPN Unavailable Unavailable Encounter Details Date Type Department Care Team (Late st Contact Info) Description 07/04/2024 Abstract [facility] 110 [place] [id number] Beni Nguyen MD 112 [facility] 110 [place] [address] Social History Tobacco Use Types Packs/Day Years [...] How often do you attend chur or latter day services? Never 03/17/2023 Do you belong to [...] Patient Health Questionnaire-2 Score 0 10/05/2023 [facility] Occupat ional Health - Occupational [...] Upcoming Encounters Date Type Department Care Team ([facility] st Contact Info) Description 01/30/2025 3:10 PM EDT Procedure Visit [facility] 112 [facility] 120 [place] [id number] Real Og DPM 3006 [facility] 5 [place] [address] 05/05/2025 1:30 PM EDT Office Visit [facility] [address] [place] [address] Sandro Saunders DO [address] [place] [address] documented as of this encounter Visit Diagnoses Not on filedocumented in this encounter Care Teams Associate Professor Of Biblical Studies Relationship Specialty Start Date End Date Beni Nguyen MD [address] [facility] [address] [place] [address] PCP - General Internal Medicine 01/02/23 Beni Nguyen MD [address] [facility] [address] [place] [address] PCP - ACO Reach 01/12/23 Esther Connolly, HEATHER Clinical [facility] Family Medicine 09/27/24 11/08/24 Anastasia Rayo LPN 11/08/24 documented as of this encounter
--- OUTSIDE RECORDS SUMMARY | 2025-01-15 14:07 | XMS_ITS | Encounter Summary ---
Author Organization [facility] Address [address] [place] [address] Care Team Providers Care Laboratory Secretary Name Role Phone Beni Nguyen MD Primary Care Provider [phone] Beni Nguyen MD Unavailable [phone] Esther Connolly RN Unavailable [phone] Anastasia Rayo LPN Unavailable Unavailable Encounter Details Date Type Department Care Team (Late st Contact Info) Description 06/20/2024 Abstract [facility] 112 [facility] 110 [place] [address] Beni Nguyen MD 112 [facility] 110 [place] [address] Social History Tobacco Use Types Packs/Day Years [...] How often do you attend chur or sabianist services? Never 03/17/2023 Do you belong to [...] Recorded Patient Health Questionnaire-2 Score 0 10/05/2023 [employer] of Occupat ional Health - Occupational Stress [...] [facility] [address] [place] [phone] Real Og DPM 3[address] [facility] 5 [place] [address] 05/05/2025 1:30 PM EDT Office Visit [facility] [address] [place] [address] Sandro Saunders DO [address] [place] [address] documented as of this encounter Visit Diagnoses Not on filedocumented in this encounter Care Teams Laboratory Secretary Relationship Specialty Start Date End Date Beni Nguyen MD [address] [facility] [address] [place] [address] PCP - General Internal Medicine 01/02/23 Beni Nguyen MD [address] [facility] [address] [place] [address] PCP - ACO Reach 01/12/23 Esther Connolly, HEATHER Clinical Advocate Family Medicine 09/27/24 11/08/24 Anastasia Rayo LPN 11/08/24 documented as of this encounter
--- OUTSIDE RECORDS SUMMARY | 2025-01-15 14:07 | XMS_ITS | Encounter Summary ---
Author Organization [facility] Address [address] [place] [address] Care Team Providers Care Windows System Admin Name Role Phone Beni Nguyen MD Primary Care Provider [phone] Beni Nguyen MD Unavailable [phone] Esther Connolly RN Unavailable [phone] Anastasia Rayo LPN Unavailable Unavailable Encounter Details Date Type Department Care Team (Late st Contact Info) Description 06/20/2024 Abstract [facility] 112 [facility] 110 [place] [address] Beni Nguyen MD 112 [facility] 110 [place] [address] Social History Tobacco Use Types Packs/Day Years [...] How often do you attend chur or congregation services? Never 03/17/2023 Do you belong to any clubs o r organizations such as temple groups, unions, fraternal or athletic groups, or [...] Upcoming Encounters Date Type Department Care Team ([facility] st Contact Info) Description 01/30/2025 3:10 PM EDT Procedure Visit [facility] 112 [facility] 120 [place] [address] Real Og DPM 3006 [facility] 5 [place] [address] 05/05/2025 1:30 PM EDT Office Visit [facility] [address] [place] [address] Sandro Saunders DO [address] [place] [address] documented as of this encounter Visit Diagnoses Not on filedocumented in this encounter Care Teams Windows System Admin Relationship Specialty Start Date End Date Beni Nguyen MD [address] [facility] [address] [place] [address] PCP - General Internal Medicine 01/02/23 Beni Nguyen MD [address] [facility] [address] [place] [address] PCP - ACO Reach 01/12/23 Esther Connolly, HEATHER Clinical Advocate Family Medicine 09/27/24 11/08/24 Anastasia Rayo LPN 11/08/24 documented as of this encounter
--- OUTSIDE RECORDS SUMMARY | 2025-01-15 14:07 | XMS_ITS | Clinical Summary ---
Author Organization [facility] Address [address] [place] [address] Care Team Providers Care Family [employer] Consumer [employer] Teacher Name Role Phone Beni Nguyen MD Primary Care Provider Beni Nguyen MD Unavailable [phone] Anastasia Rayo LPN Unavailable Unavailable Allergies No known active allergies Medications Multiple Vitamins-Minerals (GNP ONE DAILY MENS 50+ADVANCED PO) 06/30/20 09 Active loratadine (Claritin) 10 MG tablet Take 10 mg by mouth Daily Active omega-3 (Fish Oil) 1000 MG capsule Take 2 capsules by mouth Daily Active nystatin (Mycostatin) 386947 UNIT/GM powder 23 Active apixaban (Eliquis) 5 MG tabletIndications:Pulmo nary embolism, unspecified chronicity, unspecified pulmonary embolism type, unspecified whether acute cor pulmonale present (CMS/HCC) TAKE 1 TABLET BY MOUTH TWICE DAILY 180 tablet 3 05/27/20 24 Active baclofen (Lioresal) 10 MG tabletIndications:Cervi nabila stenosis of spinal canal TAKE 1 TABLET BY MOUTH WITH FOOD OR MILK 3 TIMES DAILY 270 tablet 1 07/17/20 24 Active pyridostigmine (Mestinon) 60 MG tabletIndications:Myast henia gravis TAKE 1 TABLET BY MOUTH IN THE MORNING AND 1 TABLET BY MOUTH AT NOON AND 1 TABLET BY MOUTH IN THE EVENING AND 1 TABLET BY MOUTH BEFORE BEDTIME 400 tablet 3 08/26/19 25 Active lisinopril 20 MG tabletIndications:Benig n essential hypertension (CMS/HCC) Take 1 tablet (20 mg) by mouth Daily 90 tablet 3 01/20/2025 Active simvastatin (Zocor) 40 MG tabletIndications:Pure hypercholesterolemia ([facility]/HCC) TAKE 1 TABLET BY MOUTH ONCE DAILY IN THE EVENING 90 tablet 3 09/23/19 25 Active hydrALAZINE (Apresoline) 50 MG tabletIndications:Meeta n essential hypertension (CMS/HCC) Take 1 tablet (50 mg) by mouth in the morning and 1 tablet (50 mg) before bedtime. 180 tablet 3 10/09/19 25 2025 Active gabapentin (Neurontin) 300 MG capsuleIndications:Type 2 diabetes mellitus with diabetic neuropathy, without long-term current use of insulin ([facility]) TAKE 1 CAPSULE BY MOUTH IN THE MORNING AND 1 CAPSULE BY MOUTH BEFORE BEDTIME 180 capsule 3 11/13/19 25 Active potassium chloride CR (Klor-Con M10) 10 MEQ ER tabletIndications:Hypok alemia TAKE 1 TABLET BY MOUTH IN THE MORNING AND 1 TABLET BY MOUTH BEFORE BEDTIME TAKE WITH FOOD 180 tablet 3 11/20/19 25 Active predniSONE (Deltasone) 10 MG tabletIndications:Myast henia gravis TAKE 1 AND 1/2 TABLETS BY MOUTH DAILY 135 tablet 11/20/19 25 Active cephalexin (Keflex) 500 MG capsule Take 500 mg by mouth in the morning and 500 mg before bedtime. 11/28/19 25 Active furosemide (Lasix) 20 MG tabletIndications:Local ized edema Take 1-2 tablets (20-40 mg) by mouth Daily 180 tablet 3 11/29/19 25 2025 Active oxyCODONE-acetaminophen (Percocet) 5-325 MG tabletIndications:Pain Take 1 tablet by mouth 2 (two) times a day as needed for moderate pain or severe pain 60 tablet 12/06/19 25 Active clotrimazole (Lotrimin) 1 % creamIndications:Yeast dermatitis Apply topically 2 (two) times a day 30 g 5 11/29/19 25 2024 Active Problems Problem Noted Date Diagnosed Date JAMISON on CPAP 09/17/2024 Generalized weakness 09/17/2024 GERD (gastroesophageal reflux disease) Chronic anticoagulation 09/17/2024 Chronic back pain 09/17/2024 Shortness of breath 12/21/2023 Overview (12/21/2023): The patient has chronic shortness of breath primarily with exertion, and I suspect the etiology of this is LESS likely neurologic and more likely cardiac/exercise intolerance related. This remains stable today with no reported worsening. - PLAN: - Continue weight loss measures - Continue to follow with cardiology per their recommendations Obesity 12/21/2023 Overview (12/21/2023): History of obesity which is concerning in a patient with shortness of breath. Has lost 20+ pounds since decreasing his prednisone dose with continued weight loss since his previous appointment (not unexplained). PLAN: - Continue weight loss measures and regular physical activity as tolerated in order to improve health and overall clinical picture. Hypertension 12/21/2023 Tremor 12/21/2023 Bradykinesia 12/21/2023 Facial droop 12/21/2023 Muscle cramp 12/21/2023 Ulnar neuropathy of both upper extremities 12/20 Overview (12/21/2023): Identified on previous BUE EMG. This remains stable. Chronic fatigue 12/21/2023 Overview (12/21/2023): The patient reports significant fatigue for a while now. Lab work-up per PCP was unremarkable. He does have JAMISON and utilizes a CPAP but continues to not feel well rested upon waking. He believes fragmented sleep due to waking to urinate throughout the night may be contributory. I believe re-evaluation with sleep medicine could be beneficial. The patient states he has not been evaluated by sleep medicine or had any titrations to his CPAP in over 10 years. - PLAN: - I strongly recommended referral to sleep medicine today and informed the patient that his CPAP could be functioning ineffectively. The patient declines and states he will have his PCP place the referral if he decides to proceed. He plans to discuss this with his PCP at his appointment next Monday. History of pulmonary embolus (PE) 11/17/2023 Hard of hearing 11/17/2023 Impaired mobility and activities of daily living 11/17/2023 Oropharyngeal dysphagia 11/17/2023 Stage 3 chronic kidney disease (HCC) 11/17/2023 High risk medication use 09/20/2023 Paroxysmal atrial fibrillation 06/22/2023 Abnormal stress test 06/05/2023 Echocardiogram abnormal 06/05/2023 Hyperlipidemia 06/05/2023 Edema 06/05/2023 Cor pulmonale 06/05/2023 Myasthenic crisis 05/10/2023 Benign prostatic hyperplasia 03/17/2023 Benign essential hypertension 12/27/2022 Calcaneal spur 12/27/2022 Cardiomegaly 12/27/2022 Carpal tunnel syndrome 12/27/2022 Cervical radiculopathy 12/27/2022 Cervical stenosis of spinal canal 12/27/2022 Osteoarthritis of spine with radiculopathy, cerv ical region 12/27/2022 Chronic cerebral ischemia 12/27/2022 Difficulty walking 12/27/2022 Dyspnea on exertion 12/27/2022 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 Hypercoagulable state 12/27/2022 Hypokalemia 12/27/2022 Hyponatremia 12/27/2022 Loss of smell 12/27/2022 Loss of taste 12/27/2022 Lumbosacral spondylosis without myelopathy 12/27 Malignant neoplasm of posterior wall of urinary bladder 12/27/2022 Morbid (severe) obesity due to excess calories 0 12/27/2022 Myasthenia gravis 12/27/2022 Overview (12/21/2023): 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 MRI brain in 02/2018 was unremarkable. He has no neck flexor weakness. He has no fatigability on sustained upgaze. He denies ptosis, double vision, difficulty speaking, difficulty swallowing, or increased shortness of breath since his previous appointment. Overall, physical therapy has helped him. He does however note some generalized muscle pain and I wonder if this is just the fact that he is being more active recently. - PLAN: CONTINUE PT. Continue prednisone 10 mg by mouth daily - If there is any worsening of his symptoms, we will likely consider starting azathioprine - Continue baclofen 10 mg by mouth 3 times a day as needed for muscle cramps (may utilize 5 mg dose instead of 10 mg if this helps with fatigue) - Continue pyridostigmine IR 60 mg by mouth 4 times a day - We discussed the need for acute evaluation in the emergency department should his baseline shortness of breath worsen. The patient understands the importance of emergency evaluation to assess for life-threatening myasthenic crisis. We discussed this in detail, and he is clearly understanding of this risk and how to proceed should this happen. - I strongly recommended referral to physical therapy to assist with the patient's balance and muscle strengthening. The patient declines referral today Other allergic rhinitis 12/27/2022 Poor balance 12/27/2022 Primary osteoarthritis, left elbow 12/27/2022 Pure hypercholesterolemia 12/27/2022 Right heart failure 12/27/2022 Small vessel disease, cerebrovascular 12/27/2022 Ulnar neuropathy 12/27/2022 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, without long-term current use of insulin 10/16/2022 Resolved Problems Problem Noted Date Diagnosed Date Resolved Date Head injury with fracture of skull 09/17/2024 09/17/2024 Syncope 09/17/2024 09/17/2024 MATT (acute kidney injury) 09/17/2024 Pulmonary emboli 11/17/2023 11/17/2023 Acute respiratory failure with hypoxia 11/17/2023 11/17/2023 Troponin I above reference range 11/17/2023 11/17/2023 Pulmonary embolism 12/27/2022 Encounters Date Type Department Care Team Description 01/08/2025 Abstract [facility] [address] [place] [id number] Beni Nguyen MD 01/06/2025 12:30 PM EDT Office Visit [place] [address] [phone] Sandro Saunders DO Myasthenia gravis (Primary Dx); Class 3 severe obesity due to excess calories with serious comorbidity and body mass index (BMI) of 45.0 to 49.9 in adult; Ulnar neuropathy of both upper extremities 01/06/2025 Bamboo flowsheet [place] [id number] [phone] Sandro Saunders DO 01/02/2025 4:20 PM EDT Office Visit [facility] [address] [place] [address] Real Og, SRIDHAR Laceration of lesser toe of left foot without foreign body present, nail damage status unspecified, initial encounter (Primary Dx); Closed nondisplaced fracture of distal phalanx of left great toe, initial encounter; Venous insufficiency 01/02/2025 Bamboo flowsheet [facility] [address] [facility] [address] [place] [address] Real Og DPM 01/02/2025 Travel 12/31/2024 Abstract [facility] [address] [facility] [address] [place] [address] Beni Nguyen MD 12/31/2024 Abstract [facility] [address] [facility] [address] [place] [address] Beni Nguyen MD 12/18/2024 Patient Outreach [facility] [address] [place] [address] Anatsasia Rayo LPN 12/18/2024 Abstract [facility] [address] [facility] [address] [place] [address] Beni Nguyen MD 12/12/2024 1:30 PM EDT Office Visit [facility] [address] [facility] [address] [place] [address] Real Og DPM Laceration of lesser toe of left foot without foreign body present, nail damage status unspecified, initial encounter (Primary Dx); Closed nondisplaced fracture of distal phalanx of left great toe, initial encounter 12/12/2024 1:25 PM EDT Ancillary Procedure [facility] [address] [facility] [address] [place] [address] 12/12/2024 Bamboo flowsheet [facility] [address] [facility] [address] [place] [address] Real Og DPM 12/12/2024 Travel 12/11/2024 Abstract [facility] [address] [facility] [address] [place] [address] Beni Nguyen MD 12/05/2024 2:40 PM EDT Office Visit [facility] [address] [facility] [address] [place] [address] Real Og, SRIDHAR Laceration of lesser toe of left foot without foreign body present, nail damage status unspecified, initial encounter (Primary Dx); Closed nondisplaced fracture of distal phalanx of left great toe, initial encounter 12/05/2024 2:00 PM EDT Office Visit [facility] [address] [facility] [address] [place] [address] Leela Cherry, ANAMARIA Fall, subsequent encounter (Primary Dx); Decreased mobility; Weakness; Pain 12/05/2024 Bamboo flowsheet [facility] [address] [facility] [address] [place] [address] Leela Cherry, ANAMARIA 12/05/2024 Travel 11/28/2024 Refill [facility] [address] [place] [address] Anastasia Rayo LPN Localized edema 11/28/2024 Patient Outreach [facility] [address] [place] [address] Anastasia Rayo LPN 11/26/2024 Refill [facility] [address] [facility] [address] [place] [address] Leela Cherry NP Localized edema 11/21/2024 2:40 PM EDT Procedure Visit [facility] [address] [facility] [address] [place] [address] Real Og, DPMarcial 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cosis of toenails of both feet (Primary Dx); Venous insufficiency 11/21/2024 Bamboo flowsheet [facility] [address] [facility] [address] [place] [address] Real Og DPM 11/21/2024 Travel 11/19/2024 Refill [facility] [address] [place] [address] Sandro Saunders DO Myasthenia gravis 11/19/2024 Refill [facility] [address] [place] [address] Beni Nguyen MD Hypokalemia 11/19/2024 Refill [facility] [address] [place] [address] Aide Garcia, PA Benign essential hypertension ([facility]/HCC) 11/11/2024 Refill [facility] [address] [place] [address] Beni Nguyen MD Type 2 diabetes mellitus with diabetic neuropathy, without long-term current use of insulin ([facility]) 11/06/2024 Telephone [facility] [address] [facility] [address] [place] [address] Esther Santos MA 11/05/2024 Abstract [facility] [address] [facility] [address] [place] [address] Beni Nguyen MD 10/31/2024 Abstract [facility] [address] [facility] [address] [place] [address] Beni Nguyen MD 10/31/2024 Abstract [facility] [address] [facility] [address] [place] [address] Beni Nguyen MD 10/29/2024 10:00 AM EDT Office Visit [facility] [address] [facility] [address] [place] [address] Leela Cherry NP Localized edema (Primary Dx); Hyponatremia; Benign essential hypertension ([facility]/HCC) 10/29/2024 Bamboo flowsheet [facility] [address] [facility] [address] [place] [address] Leela Cherry NP 10/29/2024 Travel 10/24/2024 Patient Outreach [facility] [place] [address] Esther Connolly, HEATHER 10/22/2024 Clinisync Result Encounter [facility] Department Unsolicited Provider, Generic External Data from Last 3 Months Immunizations Immunization Administration Dates Next Due Influenza, High-dose Seasona l, Quadrivalent, Preservative Free 06/22/2023,07/13/2022,05/06/2020,05/27,05/23/2018,05/17/2017 Influenza, Recombinant, inje ctable, preservative free 05/20/2021 Influenza, seasonal, intrade rmal, preservative free 05/22/2015,05/30/2014 Pfizer Bivalent Booster 12 Y ears And Older 07/21/2022 Pneumococcal Conjugate PCV 13 08/06/2016, 016 Pneumococcal Polysaccharide PPSV23 11/30/2017, Zoster, live 05/08/2012 Family History Medical History Relation Name Comments Heart disease Father *denies family hx of MM Cancer Mother Heart disease Other Multiple myeloma Neg Hx Relation Name Status Comments Father Mother Other Social History Tobacco Use Types Packs/Day Years [...] any clubs o r organizations such as jainism groups, unions, fraternal or athletic groups, or [...] Recorded Patient Health Questionnaire-2 Score 0 12/05/2024 [facility] - [...] Pulse 106 01/06/2025 12:33 PM EDT Temperature 36.7 C (98 F) 11/06/2023 12:54 PM EDT Respiratory Rate 18 01/02/2025 4:24 PM EDT Oxygen Saturation 94% 01/06/2025 12:33 PM EDT Inhaled Oxygen Concentration - - Weight 137 kg (302 lb 12.8 oz) 01/06/2025 12:33 PM EDT Height 172.7 cm (5' 8 ) 01/02/2025 4:24 PM EDT Body Mass Index 46.04 01/02/2025 4:24 PM EDT Plan of Treatment Upcoming Encounters Date Type Department Care Team (Late st Contact Info) Description 01/30/2025 3:10 PM EDT Procedure Visit [facility] [address] [facility] [address] [place] [address] Real Og DPM [address] [facility] [address] [place] [address] 05/05/2025 1:30 PM EDT Office Visit [facility] [address] [place] [address] Sandro Saunders DO [address] [place] [id number] Health Maintenance Due Date Last Done Comments Diabetes: Retinopathy Screening 1955 Diabetes: Urine Protein Screening 08/17/2021 08/17/2020, 05/27/2019, 03/15/2018 Diabetes: Hemoglobin A1C 12/16/2024 025, 09/25/2023, 03/31/2023, Additional history exists Influenza Vaccine (Season Ended) 2025 06/22/2023, 07/13/2022, 05/20/2021, Additional history exists Pneumococcal Vaccine: 65+ Years Completed 11/30/2017, 08/06/2016, 10/26/2015, Additional history exists Procedures Procedure Name Priority Date/Time Associated Diagnosis Comments XR FOOT 3+ VIEWS LEFT Routine 12/12/2024 1:23 PM EDT Closed nondisplaced fracture of distal phalanx of left great toe, initial encounter COMPREHENSIVE METABOLIC PANEL Routine 11/05/2024 3:29 PM EDT Localized edema Hyponatremia Benign essential hypertension (CMS/HCC) XR KNEE 4+ VIEWS BILATERAL 10/22/2024 3:26 PM EST POCT GLYCATED HEMOGLOBIN, TOTAL Routine 09/17/2024 2:55 PM EST Type 2 diabetes mellitus with diabetic neuropathy, without long-term current use of insulin (CMS/HCC) MICROALBUMIN / CREATININE URINE RATIO Routine 08/17/2020 from Last 3 Months or Most Recently Relevant to Health Maintenance Results * XR foot 3+ views left (12/12/2024 1:23 PM EDT) Anatomical Region Laterality Modality Lower Extremities, Foot Left Radiogra phic Imaging Narrative 12/12/2024 1:42 PM EDT Imaging Result: Notable medial distal tuft fracture of the distal phalanx with slight displacement us Real A Brown DPM IMG XR PROCEDURES Final Res ult * Comprehensive metabolic panel (11/05/2024 3:29 PM EDT) Glucose 127 65 - 139 mg/dL [facility] Comment: Non-fasting reference interval For someone without known diabetes, a glucose value >125 mg/dL indicates that they may have diabetes and this should be confirmed with a follow-up test. BUN 17 7 - 25 mg/dL [facility] Creatinine 1.11 0.70 - 1.22 mg/dL [facility] EGFR 67 > OR = 60 mL/min/1. 73m2 [facility] BUN/CREATININE RATIO SEE NOTE: 6 - (calc) [facility] Comment: Not Reported: BUN and Creatinine are within reference range. Sodium 143 135 - 146 mmol/L [facility] Potassium, Bld 3.5 3.5 - 5.3 mmol/L [facility] Chloride 102 98 - 110 mmol/L [facility] Carbon Dioxide 27 20 - 32 mmol/L [facility] Calcium 9.3 8.6 - 10.3 mg/dL [facility] PROTEIN, TOTAL 6.4 6.1 - 8.1 g/dL [facility] ALBUMIN 4.1 3.6 - 5.1 g/dL [facility] GLOBULIN 2.3 1.9 - 3.7 g/dL (calc) [facility] ALBUMIN/GLOBULIN RATIO 1.8 1.0 - 2.5 (calc) [facility] BILIRUBIN, TOTAL 0.8 0.2 - 1.2 mg/dL [facility] ALKALINE PHOSPHATASE 70 35 - 144 U/L [facility] AST 23 10 - 35 U/L [facility] ALT 27 9 - 46 U/L [facility] Blood Venous blood specimen / Unknown 11/05/2024 3:29 PM EDT 11/05/2024 3:29 PM EDT Narrative [facility] - 11/06/2024 8:29 AM EDT FASTING:NO FASTING: NO Resulting Agency Comment Performing Organization Information Site ID: QPT Name: [facility] Address: [address] [place] [address], [address] [place] [phone] Director: Daniele Carlson MD us Leela Cherry NP LAB BLOOD ORDERABLES Final R esult [facility] * XR knee 4+ views bilateral (10/22/2024 3:26 PM EST) Anatomical Region Laterality Modality Lower Extremities, Knee Bilateral Radiogra [facility] 10/22/2024 3:26 PM EST Narrative 10/22/2024 3:29 [place] [address] XRay Report Signed Patient: ANKUR GARCIA MR#: [id number] : 1945 Acct:[id number] Age/Sex: 79 / M ADM Date: 10/22/24 Loc: RAD Attending Dr: Jadyn Wyman M.D. Ordering Physician: Jadyn Wyman M.D. Date of Service: 10/22/24 Procedure(s): XR knee ARCHIE 4V Accession Number(s): [id number] cc: BENI NGUYEN ; Jadyn Wyman M.D. [place] [address] Patient Name: ANKUR GARCIA MRN: [facility]:[id number] date: 1945 Sex: M Assigned Patient Location: [facility] Current Patient Location: [facility] Accession/Order Number: [id number] Exam Date: 10/22/2024 15:22 Report Date: 10/22/2024 15:26 At the request of: JADYN WYMAN MD Procedure: XR knee ARCHIE 4V BILATERAL KNEES - 4 views each CLINICAL DATA: Acute bilateral knee pain and left knee instability. No injury. COMPARISON: Left knee 02/26/2024 AP, lateral and both oblique views were obtained. No acute fractures or dislocation are noted. There is mild narrowing at the medial tibiofemoral joint compartment on the right and subchondral sclerosis at the tibial plateau. No disproportionate joint space narrowing is seen on the left. There is minor marginal spurring. Small enthesophytes are present at the insertion of quadriceps tendon bilaterally. There is a trace amount joint fluid on the left. There is atherosclerotic disease at the popliteal fossa. XR/XR knee ARCHIE 4V IMPRESSION: MILD DEGENERATIVE CHANGE, GREATER ON THE RIGHT. NO ACUTE BONY FINDINGS. Impression dictated by: Aide Moe M.D.10/22/2024 3:26 PM Dictation Location: [place] [address] Electronically authenticated by: [id number] Y Date: 10/22/2024 15:26 Dictated By: Aide Moe M.D. Signed By: 10/22/24 1529 DD/ 1526 TD/TT: Community Center Coordinator: Procedure Note Radiology, Radiologist, - 10/22/2024 [place] [address] XRay Report Signed Patient: ANKUR GARCIA AMR#: [id number] : 1945cct:[id number] Age/Sex: 79 / MADM Date: 10/22/24 Loc: RAD Attending Dr: Jadyn Wyman M.D. Ordering Physician: Jadyn Wyman M.D. Date of Service: 10/22/24 Procedure(s): XR knee ARCHIE 4V Accession Number(s): [id number] cc: BENI NGUYEN ; Jadyn Wyman M.D. [place] [address] Patient Name: ANKUR GARCIA MRN: [id number] date: 1945 Sex: M Assigned Patient Location: [facility] Current Patient Location: [facility] Accession/Order Number: [id number] Exam Date: 10/22/2024 15:22 Report Date: 10/22/2024 15:26 At the request of: JADYN WYMAN MD Procedure: XR knee ARCIHE 4V BILATERAL KNEES - 4 views each CLINICAL DATA: Acute bilateral knee pain and left knee instability. No injury. COMPARISON: Left knee 02/26/2024 AP, lateral and both oblique views were obtained. No acute fractures or dislocation are noted. There is mild narrowing at the medial tibiofemoral joint compartment on the right and subchondral sclerosis at the tibial plateau. No disproportionate joint space narrowing is seen on the left. There is minor marginal spurring. Small enthesophytes are present at the insertion of quadriceps tendon bilaterally. There is a trace amount joint fluid on the left. There is atherosclerotic disease at the poplitealfossa. XR/XR knee ARCHIE 4V IMPRESSION: MILD DEGENERATIVE CHANGE, GREATER ON THE RIGHT. NO ACUTE BONY FINDINGS. Impression dictated by: Aide Moe M.D.10/22/2024 3:26 PM Dictation Location: [place] [address] Electronically authenticated by: [id number] Y Date: :26 Dictated By: Aide Moe M.D. Signed By:10/22/24 1529 DD/ 1526 TD/TT: Community Center Coordinator: Generic External Data Provider IMG XR PROCEDURES Final Result * (ABNORMAL) POCT Glycated hemoglobin, total (09/17/2024 2:55 PM EST) Hemoglobin A1C 6.2 Blood 09/17/2024 2:55 PM EST Aide LINN POINT OF CARE TEST ENTER/EDIT ORDERABLES Final Result * (ABNORMAL) Microalbumin / creatinine urine ratio (08/17/2020) UCREA 295(H) 39 - 259 [facility] MALB 5.2 [facility] Comment:mALB reference range not established. MICROALB/CREAT RATIO 17.6 [facility] 08/17/2020 Aide LINN LAB URINE ORDERABLES Final Res ult Performing Organization Address City/State/[facility] Co de Phone Number [facility] from Last 3 Months or Most Recently Relevant to Health Maintenance [place] [address] MEDICARE AARP Care Teams Family [employer] Consumer [employer] Teacher Relationship Specialty Start Date End Date Beni Nguyen MD [address] [facility] [address] [place] [address] PCP - General Internal Medicine 01/02/23 Beni Nguyen MD [address] [facility] [address] [place] [address] PCP - ACO Reach 01/12/23 Anastasia Rayo LPN 11/08/24
--- OUTSIDE RECORDS SUMMARY | 2025-01-15 14:07 | XMS_ITS | Encounter Summary ---
Author Organization [facility] Address [address] [place] [address] Care Team Providers Care Minibus Driver Name Role Phone Beni Nguyen MD Primary Care Provider [phone] Beni Nguyen MD Unavailable [phone] Esther Connolly RN Unavailable [phone] Anastasia Rayo LPN Unavailable Unavailable Encounter Details Date Type Department Care Team (Late st Contact Info) Description 06/20/2024 Abstract [facility] 112 [facility] 110 [place] [address] Beni Nguyen MD 112 [facility] 110 [place] [address] Social History Tobacco Use Types Packs/Day Years [...] How often do you attend chur or buddhist services? Never 03/17/2023 Do you belong to [...] Recorded Patient Health Questionnaire-2 Score 0 10/05/2023 [facility] Occupat ional Health - [...] Upcoming Encounters Date Type Department Care Team ([facility] st Contact Info) Description 01/30/2025 3:10 PM EDT Procedure Visit [facility] PODIAT[facility] 112 [facility] 120 [place] [address] Real Og DPM 3006 [facility] 5 [place] [address] 05/05/2025 1:30 PM EDT Office Visit RANDELL SUMMERS [address] [place] [address] Sandro Saunders DO [address] [place] [address] documented as of this encounter Visit Diagnoses Not on filedocumented in this encounter Care Teams Minibus Driver Relationship Specialty Start Date End Date Beni Nguyen MD [address] [facility] 110 [place] [address] PCP - General Internal Medicine 01/02/23 Beni Nguyen MD [address] [facility] 110 [place] [address] PCP - ACO Reach 01/12/23 Esther Connolly, HEATHER Clinical Advocate Family Medicine 09/27/24 11/08/24 Anastasia Rayo LPN 11/08/24 documented as of this encounter
--- OUTSIDE RECORDS SUMMARY | 2025-01-15 14:07 | XMS_ITS | Encounter Summary ---
Author Organization [facility] Address [address] [place] [address] Care Team Providers Care Game Designer/Creative Director Name Role Phone Beni Nguyen MD Primary Care Provider [phone] Beni Nguyen MD Unavailable [phone] Esther Connolly RN Unavailable [phone] Anastasia Rayo LPN Unavailable Unavailable Encounter Details Date Type Department Care Team (Late st Contact Info) Description 07/10/2024 Abstract [facility] 112 [facility] 110 [place] [address] Beni Nguyen MD 112 [facility] 110 [place] [address] Social History Tobacco Use Types Packs/Day Years [...] How often do you attend chur or uatsdin services? Never 03/17/2023 Do you [...] Recorded Patient Health Questionnaire-2 Score 0 10/05/2023 [facility] of Occupat ional Health - Occupational [...] PODIATRY 112 [facility] 120 [place] [address] Real Og DPM 3006 [facility] 5 [place] [address] 05/05/2025 1:30 PM EDT Office Visit RANDELL SUMMERS [address] [place] [address] Sandro Saunders DO [address] [place] [address] documented as of this encounter Visit Diagnoses Not on filedocumented in this encounter Care Teams Game Designer/Creative Director Relationship Specialty Start Date End Date Beni Nguyen MD [address] [facility] 110 [place] [address] PCP - General Internal Medicine 01/02/23 Beni Nguyen MD [address] [facility] 110 [place] [address] PCP - ACO Reach 01/12/23 Esther Connolly, HEATHER Clinical Advocate Family Medicine 09/27/24 11/08/24 Anastasia Rayo LPN 11/08/24 documented as of this encounter
--- OUTSIDE RECORDS SUMMARY | 2025-01-15 14:08 | XMS_ITS | Encounter Summary ---
Author Organization [facility] Address [address] [place] [address] Care Team Providers Care Light Adjuster Name Role Phone Beni Nguyen MD Primary Care Provider [phone] Beni Nguyen MD Unavailable [phone] Esther Connolly RN Unavailable [phone] Anastasia Rayo LPN Unavailable Unavailable Encounter Details Date Type Department Care Team (Late st Contact Info) Description 10/11/2023 Abstract [facility] 112 [facility] 110 [place] [address] Beni Nguyen MD 112 [facility] 110 [place], [place] [address] Social History Tobacco Use Types Packs/Day Years [...] any clubs o r organizations such as mosque groups, unions, fraternal or athletic groups, or [...] Recorded Patient Health Questionnaire-2 Score 0 10/05/2023 [facility] Questionnaire Answer Date [...] Upcoming Encounters Date Type Department Care Team ([facility] st Contact Info) Description 01/30/2025 3:10 PM EDT Procedure Visit [facility] 112 [facility] 120 [place] [address] Real Og DPMarcial 3006 [facility] 5 [place] [address] 05/05/2025 1:30 PM EDT Office Visit RANDELL SUMMERS [address] [place] [address] Sandro Saunders DO [address] [place] [address] documented as of this encounter Visit Diagnoses Not on filedocumented in this encounter Care Teams Light Adjuster Relationship Specialty Start Date End Date Beni Nguyen MD 112 [facility] 110 [place] [address] PCP - General Internal Medicine 01/02/23 Beni Nguyen MD 112 [facility] 110 [place] [address] PCP - ACO Reach 01/12/23 Esther Connolly, RN Clinical Advocate Family Medicine 09/27/24 11/08/24 Anastasia Rayo LPN 11/08/24 documented as of this encounter
--- OUTSIDE RECORDS SUMMARY | 2025-01-15 14:08 | XMS_ITS | Encounter Summary ---
Author Organization [facility] Address [address] [place] [address] Care Team Providers Care Chicken Vaccinator Name Role Phone Beni Nguyen MD Primary Care Provider Beni Nguyen MD Unavailable [phone] Esther Connolly RN Unavailable [phone] Anastasia Rayo LPN Unavailable Unavailable Encounter Details Date Type Department Care Team (Late st Contact Info) Description 08/01/2024 Abstract [facility] [address] [facility] 110 [place] [address] Beni Nguyen MD 112 [facility] 110 [place] [address] Social History Tobacco Use Types Packs/Day Years [...] any clubs o r organizations such as scientologist groups, unions, fraternal or athletic groups, or [...] Recorded Patient Health Questionnaire-2 Score 0 10/05/2023 [facility] of Occupat ional Health - [...] Upcoming Encounters Date Type Department Care Team ([facility] st Contact Info) Description 01/30/2025 3:10 PM EDT Procedure Visit [facility] 112 [facility] 120 [place] [address] Real Og DPM 3006 [facility] 5 [place] [address] 05/05/2025 1:30 PM EDT Office Visit RANDELL SUMMERS [address] [place] [address] Sandro Saunders DO [address] [place] [address] documented as of this encounter Visit Diagnoses Not on filedocumented in this encounter Care Teams Chicken Vaccinator Relationship Specialty Start Date End Date Beni Nguyen MD [address] [facility] 110 [place] [address] PCP - General Internal Medicine 01/02/23 Beni Nguyen MD [address] [facility] [address] [place] [address] PCP - ACO Reach 01/12/23 Esther Connolly, HEATHER Clinical Advocate Family Medicine 09/27/24 11/08/24 Anastasia Rayo LPN 11/08/24 documented as of this encounter
--- OUTSIDE RECORDS SUMMARY | 2025-01-15 14:08 | XMS_ITS | Encounter Summary ---
Author Organization [facility] Address [address] [place] [address] Care Team Providers Care Supervisor Pipe Manufacture Name Role Phone Beni Nguyen MD Primary Care Provider [phone] Beni Nguyen MD Unavailable [phone] Esther Connolly RN Unavailable [phone] Anastasia Rayo LPN Unavailable Unavailable Encounter Details Date Type Department Care Team (Late st Contact Info) Description 10/26/2023 Abstract [facility] 112 [facility] 110 [place] [address] Beni Nguyen MD 112 [facility] 110 [place], [place] [address] Social History Tobacco Use Types Packs/Day Years [...] any clubs o r organizations such as denominational groups, unions, fraternal or athletic groups, or [...] Recorded Patient Health Questionnaire-2 Score 0 10/05/2023 [facility] Questionnaire Answer Date Recorded [...] Upcoming Encounters Date Type Department Care Team ([facility] st Contact Info) Description 01/30/2025 3:10 PM EDT Procedure Visit [facility]OD[facility] 112 [facility] 120 [place] [address] Real Og DPMarcial 3006 [facility] 5 [place] [address] 05/05/2025 1:30 PM EDT Office Visit RANDELL SUMMERS [address] [place] [address] Sandro Saunders DO [address] [place] [address] documented as of this encounter Visit Diagnoses Not on filedocumented in this encounter Care Teams Supervisor Pipe Manufacture Relationship Specialty Start Date End Date Beni Nguyen MD 112 [facility] 110 [place] [address] PCP - General Internal Medicine 01/02/23 Beni Nguyen MD 112 [facility] 110 [place] [address] PCP - ACO Reach 01/12/23 Esther Connolly, RN Clinical Advocate Family Medicine 09/27/24 11/08/24 Anastasia Rayo LPN 11/08/24 documented as of this encounter
--- OUTSIDE RECORDS SUMMARY | 2025-01-15 14:08 | XMS_ITS | Encounter Summary ---
Author Organization [facility] Address [address] [place] [address] Care Team Providers Care Explosive Operator Bomb Name Role Phone Beni Nguyen MD Primary Care Provider [phone] Beni Nguyen MD Unavailable [phone] Esther Connolly RN Unavailable [phone] Anastasia Rayo LPN Unavailable Unavailable Encounter Details Date Type Department Care Team (Late st Contact Info) Description 07/29/2024 Abstract [facility] 112 [facility] 110 [place] [address] Beni Nguyen MD 112 [facility] 110 [place] [address] Social History Tobacco Use Types Packs/Day Years [...] How often do you attend chur or samaritan services? Never 03/17/2023 Do you belong to any clubs o r organizations such as confucianism groups, unions, fraternal or athletic groups, or [...] Encounters Date Type Department Care Team ([facility] st Contact Info) Description 01/30/2025 3:10 PM EDT Procedure Visit [facility]OD[facility] 112 [facility] 120 [place] [address] Real Og DPM 3006 [facility] 5 [place] [address] 05/05/2025 1:30 PM EDT Office Visit RANDELL SUMMERS [address] [place] [address] Sandro Saunders DO [address] [place] [address] documented as of this encounter Visit Diagnoses Not on filedocumented in this encounter Care Teams Explosive Operator Bomb Relationship Specialty Start Date End Date Beni Nguyen MD [address] [email or web address] [address] [place] [address] PCP - General Internal Medicine 01/02/23 Beni Nguyen MD [address] [email or web address] [address] [place] [address] PCP - ACO Reach 01/12/23 Esther Connolly, HEATHER Clinical Advocate Family Medicine 09/27/24 11/08/24 Anastasia Rayo LPN 11/08/24 documented as of this encounter
--- OUTSIDE RECORDS SUMMARY | 2025-01-15 14:08 | XMS_ITS | Encounter Summary ---
Author Organization [facility] Address [address] [place] [address] Care Team Providers Care Principal Biostatistician Name Role Phone Beni Nguyen MD Primary Care Provider [phone] Beni Nguyen MD Unavailable [phone] Esther Connolly RN Unavailable [phone] Anastasia Rayo LPN Unavailable Unavailable Encounter Details Date Type Department Care Team (Late st Contact Info) Description 08/07/2024 Abstract [facility] 112 [facility] 110 [place] [address] Beni Nguyen MD 112 [facility] 110 [place] [address] Social History Tobacco Use Types Packs/Day Years [...] any clubs o r organizations such as jain groups, unions, fraternal or athletic groups, or [...] Recorded Patient Health Questionnaire-2 Score 0 10/05/2023 [facility] of Occupat ional Health - Occupational [...] Upcoming Encounters Date Type Department Care Team ([facility] st Contact Info) Description 01/30/2025 3:10 PM EDT Procedure Visit [facility] PODIATRY 112 [facility] 120 [place] [address] Real Og DPM 3006 [facility] 5 [place] [address] 05/05/2025 1:30 PM EDT Office Visit RANDELL SUMMERS [address] [place] [address] Sandro Saunders DO [address] [place] [address] documented as of this encounter Visit Diagnoses Not on filedocumented in this encounter Care Teams Principal Biostatistician Relationship Specialty Start Date End Date Beni Nguyen MD [address] [facility] 110 [place] [address] PCP - General Internal Medicine 01/02/23 Beni Nguyen MD [address] [facility] 110 [place] [address] PCP - ACO Reach 01/12/23 Esther Connolly, HEATHER Clinical Advocate Family Medicine 09/27/24 11/08/24 Anastasia Rayo LPN 11/08/24 documented as of this encounter
--- OUTSIDE RECORDS SUMMARY | 2025-01-15 14:08 | XMS_ITS | Encounter Summary ---
Author Organization [facility] Address [address] [place] [address] Care Team Providers Care Belt Weaver Name Role Phone Beni Nguyen MD Primary Care Provider [phone] Beni Nguyen MD Unavailable [phone] Esther Connolly RN Unavailable [phone] Anastasia Rayo LPN Unavailable Unavailable Encounter Details Date Type Department Care Team (Late st Contact Info) Description 07/15/2024 Abstract [facility] 112 [facility] 110 [place] [address] Beni Nguyen MD 112 [facility] 110 [place] [address] Social History Tobacco Use Types Packs/Day Years [...] any clubs o r organizations such as catholic groups, unions, fraternal or athletic groups, [...] Upcoming Encounters Date Type Department Care Team ([facility] st Contact Info) Description 01/30/2025 3:10 PM EDT Procedure Visit [facility]OD[facility] 112 [facility] 120 [place] [address] Real Og DPM 3006 [facility] 5 [place] [address] 05/05/2025 1:30 PM EDT Office Visit RANDELL SUMMERS [address] [place] [address] Sandro Saunders DO [address] [place] [address] documented as of this encounter Visit Diagnoses Not on filedocumented in this encounter Care Teams Belt Weaver Relationship Specialty Start Date End Date Beni Nguyen MD [address] [facility] 110 [place] [address] PCP - General Internal Medicine 01/02/23 Beni Nguyen MD [address] [facility] 110 [place] [address] PCP - ACO Reach 01/12/23 Esther Connolly, HEATHER Clinical Advocate Family Medicine 09/27/24 11/08/24 Anastasia Rayo LPN 11/08/24 documented as of this encounter
--- OUTSIDE RECORDS SUMMARY | 2025-01-15 14:08 | XMS_ITS | Encounter Summary ---
Author Organization [facility] Address [address] [place] [address] Care Team Providers Care Snowboard Instructor Name Role Phone Beni Nguyen MD Primary Care Provider [phone] Beni Nguyen MD Unavailable [phone] Esther Connolly RN Unavailable [phone] Anastasia Rayo LPN Unavailable Unavailable Encounter Details Date Type Department Care Team (Late st Contact Info) Description 08/07/2024 Abstract [facility] 112 [facility] 110 [place] [address] Beni Nguyen MD 112 [facility] 110 [place] [address] Social History Tobacco Use Types Packs/Day Years [...] How often do you attend chur or episcopal services? Never 03/17/2023 Do you belong to any clubs o r organizations such as anglican groups, unions, fraternal or athletic groups, or [...] Upcoming Encounters Date Type Department Care Team ([facility] st Contact Info) Description 01/30/2025 3:10 PM EDT Procedure Visit [facility] PODIATRY 112 [facility] 120 [place] [address] Real Og DPM 3006 [facility] 5 [place] [address] 05/05/2025 1:30 PM EDT Office Visit RANDELL SUMMERS [address] [place] [address] Sandro Saunders DO [address] [place] [address] documented as of this encounter Visit Diagnoses Not on filedocumented in this encounter Care Teams Snowboard Instructor Relationship Specialty Start Date End Date Beni Nguyen MD [address] [facility] 110 [place] [address] PCP - General Internal Medicine 01/02/23 Beni Nguyen MD [address] [facility] 110 [place] [address] PCP - ACO Reach 01/12/23 Esther Connolly, HEATHER Clinical Advocate Family Medicine 09/27/24 11/08/24 Anastasia Rayo LPN 11/08/24 documented as of this encounter
--- OUTSIDE RECORDS SUMMARY | 2025-01-15 14:08 | XMS_ITS | Encounter Summary ---
Author Organization [facility] Address [address] [place] [address] Care Team Providers Care Magazine Feeder Name Role Phone Beni Nguyen MD Primary Care Provider [phone] Beni Nguyen MD Unavailable [phone] Esther Connolly RN Unavailable [phone] Anastasia Rayo LPN Unavailable Unavailable Encounter Details Date Type Department Care Team (Late st Contact Info) Description 07/17/2024 Abstract [facility] 112 [facility] 110 [place] [address] Beni Nguyen MD 112 [facility] 110 [place] [address] Social History Tobacco Use Types Packs/Day Years [...] Recorded Patient Health Questionnaire-2 Score 0 10/05/2023 [facility] of Occupat ional [...] Upcoming Encounters Date Type Department Care Team ([facility] st Contact Info) Description 01/30/2025 3:10 PM EDT Procedure Visit [facility]OD[facility] 112 [facility] 120 [place] [address] Real Og DPM 3006 [facility] 5 [place] [address] 05/05/2025 1:30 PM EDT Office Visit RANDELL SUMMERS [address] [place] [address] Sandro Saunders DO [address] [place] [address] documented as of this encounter Visit Diagnoses Not on filedocumented in this encounter Care Teams Magazine Feeder Relationship Specialty Start Date End Date Beni Nguyen MD [address] [facility] [address] [place] [address] PCP - General Internal Medicine 01/02/23 Beni Nguyen MD [address] [facility] [address] [place] [address] PCP - ACO Reach 01/12/23 Esther Connolly, HEATHER Clinical Advocate Family Medicine 09/27/24 11/08/24 Anastasia Rayo LPN 11/08/24 documented as of this encounter
--- OUTSIDE RECORDS SUMMARY | 2025-01-15 14:08 | XMS_ITS | Encounter Summary ---
Author Organization [facility] Address [address] [place] [address] Care Team Providers Care Fire Equipment Operator Name Role Phone Beni Nguyen MD Primary Care Provider [phone] Beni Nguyen MD Unavailable [phone] Esther Connolly RN Unavailable [phone] Anastasia Rayo LPN Unavailable Unavailable Encounter Details Date Type Department Care Team (Late st Contact Info) Description 08/22/2024 Abstract [facility] 112 [facility] 110 [place] [address] Beni Nguyen MD 112 [facility] 110 [place] [address] Social History Tobacco Use Types Packs/Day Years [...] How often do you attend chur or mosque services? Never 03/17/2023 Do you [...] Recorded Patient Health Questionnaire-2 Score 0 10/05/2023 [facility] of Occupat ional Health - [...] [facility] 120 [place] [address] Real Og DPM 3006 [facility] 5 [place] [address] 05/05/2025 1:30 PM EDT Office Visit RANDELL SUMMERS [address] [place] [address] Sandro Saunders DO [address] [place] [address] documented as of this encounter Visit Diagnoses Not on filedocumented in this encounter Care Teams Fire Equipment Operator Relationship Specialty Start Date End Date Beni Nguyen MD [address] [facility] 110 [place] [address] PCP - General Internal Medicine 01/02/23 Beni Nguyen MD [address] [facility] 110 [place] [address] PCP - ACO Reach 01/12/23 Esther Connolly, HEATHER Clinical Advocate Family Medicine 09/27/24 11/08/24 Anastasia Rayo LPN 11/08/24 documented as of this encounter
--- OUTSIDE RECORDS SUMMARY | 2025-01-15 14:08 | XMS_ITS | Encounter Summary ---
Author Organization [facility] Address [address] [place] [address] Care Team Providers Care Soft Work Wrapper Layer And Examiner Name Role Phone Beni Nguyen MD Primary Care Provider [phone] Beni gNuyen MD Unavailable [phone] Esther Connolly RN Unavailable [phone] Anastasia Rayo LPN Unavailable Unavailable Encounter Details Date Type Department Care Team (Late st Contact Info) Description 07/30/2024 Abstract [facility] 112 [facility] 110 [place] [address] Beni Nguyen MD 112 [facility] 110 [place] [address] Social History Tobacco Use Types Packs/Day Years [...] How often do you attend chur or druze services? Never 03/17/2023 Do you belong to any clubs o r organizations such as voodoo groups, unions, fraternal or athletic groups, or [...] Recorded Patient Health Questionnaire-2 Score 0 10/05/2023 [facility] of Occupat ional Health - Occupational [...] Encounters Date Type Department Care Team ([facility] st Contact Info) Description 01/30/2025 3:10 PM EDT Procedure Visit [facility]OD[facility] 112 [facility] 120 [place] [address] Real Og DPM 3006 [facility] 5 [place] [address] 05/05/2025 1:30 PM EDT Office Visit RANDELL SUMMERS [address] [place] [address] Sandro Saunders DO [address] [place] [address] documented as of this encounter Visit Diagnoses Not on filedocumented in this encounter Care Teams Soft Work Wrapper Layer And Examiner Relationship Specialty Start Date End Date Beni Nguyen MD [address] [facility] 110 [place] [address] PCP - General Internal Medicine 01/02/23 Beni Nguyen MD [address] [facility] [address] [place] [address] PCP - ACO Reach 01/12/23 Esther Connolly, HEATHER Clinical Advocate Family Medicine 09/27/24 11/08/24 Anastasia Rayo LPN 11/08/24 documented as of this encounter
--- OUTSIDE RECORDS SUMMARY | 2025-01-15 14:08 | XMS_ITS | Encounter Summary ---
Author Organization [facility] Address [address] [place] [address] Care Team Providers Care Produce Team Lead Name Role Phone Beni Nguyen MD Primary Care Provider [phone] Beni Nguyen MD Unavailable [phone] Esther Connolly RN Unavailable [phone] Anastasia Rayo LPN Unavailable Unavailable Encounter Details Date Type Department Care Team (Late st Contact Info) Description 09/11/2024 Abstract [facility] 112 [facility] 110 [place] [address] Beni Nguyen MD 112 [facility] 110 [place] [address] Social History Tobacco Use Types Packs/Day Years [...] Recorded Patient Health Questionnaire-2 Score 0 10/05/2023 [facility] Occupat ional Health [...] place to sleep or slept in a penitentiary (including now)? No 03/17/2023 Sex and Gender [...] EDT Procedure Visit [facility] 112 [facility] 120 [place] [address] Real Og DPM 3006 [facility] 5 [place] [address] 05/05/2025 1:30 PM EDT Office Visit RANDELL SUMMERS [address] [place] [address] Sandro Saunders DO [address] [place] [address] documented as of this encounter Visit Diagnoses Not on filedocumented in this encounter Care Teams Produce Team Lead Relationship Specialty Start Date End Date Beni Nguyen MD [address] [facility] 110 [place] [address] PCP - General Internal Medicine 01/02/23 Beni Nguyen MD [address] [facility] [address] [place] [address] PCP - ACO Reach 01/12/23 Esther Connolly, HEATHER Clinical Advocate Family Medicine 09/27/24 11/08/24 Anastasia Rayo LPN 11/08/24 documented as of this encounter
--- OUTSIDE RECORDS SUMMARY | 2025-01-15 14:08 | XMS_ITS | Encounter Summary ---
Author Organization [facility] Address [address] [place] [address] Care Team Providers Care Water Gas Operator Name Role Phone Beni Nguyen MD Primary Care Provider Beni Nguyen MD Unavailable [phone] Esther Connolly RN Unavailable [phone] Anastasia Rayo LPN Unavailable Unavailable Encounter Details Date Type Department Care Team (Late st Contact Info) Description 08/28/2024 Abstract [facility] 112 [facility] 110 [place] [address] Beni Nguyen MD 112 [facility] 110 [place] [address] Social History Tobacco Use Types Packs/Day Years [...] How often do you attend chur or restorationist services? Never 03/17/2023 Do you [...] Recorded Patient Health Questionnaire-2 Score 0 10/05/2023 [facility] of Occupat ional Health - Occupational [...] Upcoming Encounters Date Type Department Care Team ([facility] st Contact Info) Description 01/30/2025 3:10 PM EDT Procedure Visit [facility] 112 [facility] 120 [place] [address] Real Og DPM 3006 [facility] 5 [place] [address] 05/05/2025 1:30 PM EDT Office Visit RANDELL SUMMERS [address] [place] [address] Sandro Saunders DO [address] [place] [address] documented as of this encounter Visit Diagnoses Not on filedocumented in this encounter Care Teams Water Gas Operator Relationship Specialty Start Date End Date Beni Nguyen MD [address] [facility] 110 [place] [address] PCP - General Internal Medicine 01/02/23 Beni Nguyen MD [address] [facility] [address] [place] [address] PCP - ACO Reach 01/12/23 Esther Connolly, HEATHER Clinical Advocate Family Medicine 09/27/24 11/08/24 Anastasia Rayo LPN 11/08/24 documented as of this encounter
--- OUTSIDE RECORDS SUMMARY | 2025-01-15 14:08 | XMS_ITS | Encounter Summary ---
Author Organization [facility] Address [address] [place] [address] Care Team Providers Care Narrow Gauge Operator Name Role Phone Beni Nguyen MD Primary Care Provider [phone] Beni Nguyen MD Unavailable [phone] Esther Connolly RN Unavailable [phone] Anastasia Rayo LPN Unavailable Unavailable Encounter Details Date Type Department Care Team (Late st Contact Info) Description 07/26/2024 Abstract [facility] 112 [facility] 110 [place] [address] Beni Nguyen MD 112 [facility] 110 [place] [address] Social History Tobacco Use Types Packs/Day Years [...] How often do you attend chur or voodoo services? Never 03/17/2023 Do you belong to any clubs o r organizations such as mu-ism groups, unions, fraternal or athletic groups, or [...] Recorded Patient Health Questionnaire-2 Score 0 10/05/2023 [facility] of Occupat ional Health [...] Upcoming Encounters Date Type Department Care Team ([facility] st Contact Info) Description 01/30/2025 3:10 PM EDT Procedure Visit [facility] 112 [facility] 120 [place] [address] Real Og DPM 3006 [facility] 5 [place] [address] 05/05/2025 1:30 PM EDT Office Visit RANDELL SUMMERS [address] [place] [address] Sandro Saunders DO [address] [place] [address] documented as of this encounter Visit Diagnoses Not on filedocumented in this encounter Care Teams Narrow Gauge Operator Relationship Specialty Start Date End Date Beni Nguyen MD [address] [facility] [address] [place] [address] PCP - General Internal Medicine 01/02/23 Beni Nguyen MD [address] [facility] [address] [place] [address] PCP - ACO Reach 01/12/23 Esther Connolly, HEATHER Clinical Advocate Family Medicine 09/27/24 11/08/24 Anastasia Rayo LPN 11/08/24 documented as of this encounter
--- OUTSIDE RECORDS SUMMARY | 2025-01-15 14:08 | XMS_ITS | Encounter Summary ---
Author Organization [facility] Address [address] [place] [address] Care Team Providers Care Precision Lathe Operator Name Role Phone Beni Nguyen MD Primary Care Provider [phone] Beni Nguyen MD Unavailable [phone] Esther Connolly RN Unavailable [phone] Anastasia Rayo LPN Unavailable Unavailable Encounter Details Date Type Department Care Team (Late st Contact Info) Description 07/15/2024 Abstract [facility] 112 [facility] 110 [place] [address] Beni Nguyen MD 112 [facility] 110 [place] [address] Social History Tobacco Use Types Packs/Day Years [...] How often do you attend chur or muslim services? Never 03/17/2023 Do you belong to any clubs o r organizations such as jew groups, unions, fraternal or athletic groups, or [...] Upcoming Encounters Date Type Department Care Team ([facility] st Contact Info) Description 01/30/2025 3:10 PM EDT Procedure Visit [facility] 112 [facility] 120 [place] [address] Real Og DPM 3006 [facility] 5 [place] [address] 05/05/2025 1:30 PM EDT Office Visit RANDLEL SUMMERS [address] [place] [address] Sandro Saunders DO [address] [place] [address] documented as of this encounter Visit Diagnoses Not on filedocumented in this encounter Care Teams Precision Lathe Operator Relationship Specialty Start Date End Date Beni Nguyen MD [address] [facility] 110 [place] [address] PCP - General Internal Medicine 01/02/23 Beni Nguyen MD [address] [facility] [address] [place] [address] PCP - ACO Reach 01/12/23 Esther Connolly, HEATHER Clinical Advocate Family Medicine 09/27/24 11/08/24 Anastasia Rayo LPN 11/08/24 documented as of this encounter
--- OUTSIDE RECORDS SUMMARY | 2025-01-15 14:08 | XMS_ITS | Encounter Summary ---
Author Organization [facility] Address [address] [place] [address] Care Team Providers Care Motor And Generator Brush Maker Name Role Phone Beni Nguyen MD Primary Care Provider [phone] Beni Nguyen MD Unavailable [phone] Esther Connolly RN Unavailable [phone] Anastasia Rayo LPN Unavailable Unavailable Encounter Details Date Type Department Care Team (Late st Contact Info) Description 08/07/2024 Abstract [facility] 112 [facility] 110 [place] [address] Beni Nguyen MD 112 [facility] 110 [place] [address] Social History Tobacco Use Types Packs/Day Years [...] any clubs o r organizations such as protestant groups, unions, fraternal or athletic groups, or [...] Procedure Visit [facility] 112 [facility] 120 [place] [address] Real Og DPM 3006 [facility] 5 [place] [address] 05/05/2025 1:30 PM EDT Office Visit RANDELL SUMMERS [address] [place] [address] Sandro Saunders DO [address] [place] [address] documented as of this encounter Visit Diagnoses Not on filedocumented in this encounter Care Teams Motor And Generator Brush Maker Relationship Specialty Start Date End Date Beni Nguyen MD [address] [facility] 110 [place] [address] PCP - General Internal Medicine 01/02/23 Beni Nguyen MD [address] [facility] [address] [place] [address] PCP - ACO Reach 01/12/23 Esther Connolly, HEATHER Clinical Advocate Family Medicine 09/27/24 11/08/24 Anastasia Rayo LPN 11/08/24 documented as of this encounter
--- OUTSIDE RECORDS SUMMARY | 2025-01-15 14:08 | XMS_ITS | Encounter Summary ---
Author Organization [facility] Address [address] [place] [address] Care Team Providers Care Die Baker Name Role Phone Beni Nguyen MD Primary Care Provider [phone] Beni Nguyen MD Unavailable [phone] Esther Connolly RN Unavailable [phone] Anastasia Rayo LPN Unavailable Unavailable Encounter Details Date Type Department Care Team (Late st Contact Info) Description 08/19/2024 Abstract [facility] [address] [facility] 110 [place] [address] Beni Nguyen MD [address] [facility] 110 [place] [address] Social History Tobacco Use Types Packs/Day Years [...] Patient Health Questionnaire-2 Score 0 10/05/2023 [facility] of Occupat ional Health - [...] place to sleep or slept in a snf (including now)? No 03/17/2023 Sex and Gender [...] PODIATRY 112 [facility] 120 [place] [address] Real Og DPM 3006 [facility] 5 [place] [address] 05/05/2025 1:30 PM EDT Office Visit RANDELL SUMMERS [address] [place] [address] Sandro Saunders DO [address] [place] [address] documented as of this encounter Visit Diagnoses Not on filedocumented in this encounter Care Teams Die Baker Relationship Specialty Start Date End Date Beni Nguyen MD [address] [facility] 110 [place] [address] PCP - General Internal Medicine 01/02/23 Beni Nguyen MD [address] [facility] [address] [place] [address] PCP - ACO Reach 01/12/23 Esther Connolly, HEATHER Clinical Advocate Family Medicine 09/27/24 11/08/24 Anastasia Rayo LPN 11/08/24 documented as of this encounter
--- OUTSIDE RECORDS SUMMARY | 2025-01-15 14:08 | XMS_ITS | Encounter Summary ---
Author Organization [facility] Address [address] [place] [address] Care Team Providers Care Ornament Stitcher Name Role Phone Beni Nguyen MD Primary Care Provider [phone] Beni Nguyen MD Unavailable [phone] Esther Connolly RN Unavailable [phone] Anastasia Rayo LPN Unavailable Unavailable Encounter Details Date Type Department Care Team (Late st Contact Info) Description 08/01/2024 Abstract [facility] 112 [facility] 110 [place] [address] Beni Nguyen MD 112 [facility] 110 [place] [address] Social History Tobacco Use Types Packs/Day Years [...] Recorded Patient Health Questionnaire-2 Score 0 10/05/2023 [facility] Occupat ional Health - [...] place to sleep or slept in a long-term (including now)? No 03/17/2023 Sex and Gender Information Value Date Recorded Sex Assigned at Not on file Legal Sex Male 6:56 PM EDT Gender Identity Not on file Sexual Orientation Not on file documented as of this encounter Plan of Treatment Upcoming Encounters Date Type Department Care Team ([facility] st Contact Info) Description 01/30/2025 3:10 PM EDT Procedure Visit [facility] 112 [facility] 120 [place] [address] Real Og DPM 3006 [facility] 5 [place] [address] 05/05/2025 1:30 PM EDT Office Visit RANDELL SUMMERS [address] [place] [address] Sandro Saunders DO [address] [place] [address] documented as of this encounter Visit Diagnoses Not on filedocumented in this encounter Care Teams Ornament Stitcher Relationship Specialty Start Date End Date Beni Nguyen MD [address] [facility] 110 [place] [address] PCP - General Internal Medicine 01/02/23 Beni Nguyen MD [address] [facility] 110 [place] [address] PCP - ACO Reach 01/12/23 Esther Connolly, HEATHER Clinical Advocate Family Medicine 09/27/24 11/08/24 Anastasia Rayo LPN 11/08/24 documented as of this encounter
--- OUTSIDE RECORDS SUMMARY | 2025-01-15 14:08 | XMS_ITS | Encounter Summary ---
Author Organization [facility] Address [address] [place] [address] Care Team Providers Care Chemistry Manager Name Role Phone Beni Nguyen MD Primary Care Provider [phone] Beni Nguyen MD Unavailable [phone] Esther Connolly RN Unavailable [phone] Anastasia Rayo LPN Unavailable Unavailable Encounter Details Date Type Department Care Team (Late st Contact Info) Description 07/30/2024 Abstract [facility] 112 [facility] 110 [place] [address] Beni Nguyen MD 112 [facility] 110 [place] [address] Social History Tobacco Use Types Packs/Day Years [...] How often do you attend chur or yazidism services? Never 03/17/2023 Do you belong to any clubs o r organizations such as jehovah's witness groups, unions, fraternal or athletic groups, or [...] Recorded Patient Health Questionnaire-2 Score 0 10/05/2023 [facility] of Occupat ional Health - Occupational Stress [...] place to sleep or slept in a retirement (including now)? No 03/17/2023 Sex and Gender [...] EDT Procedure Visit [facility] 112 [facility] 120 [place] [address] Real Og DPM 3006 [facility] 5 [place] [address] 05/05/2025 1:30 PM EDT Office Visit RANDELL SUMMERS [address] [place] [address] Sandro Saunders DO [address] [place] [address] documented as of this encounter Visit Diagnoses Not on filedocumented in this encounter Care Teams Chemistry Manager Relationship Specialty Start Date End Date Beni Nguyen MD [address] [facility] 110 [place] [address] PCP - General Internal Medicine 01/02/23 Beni Nguyen MD [address] [facility] 110 [place] [address] PCP - ACO Reach 01/12/23 Esther Connolly, HEATHER Clinical Advocate Family Medicine 09/27/24 11/08/24 Anastasia Rayo LPN 11/08/24 documented as of this encounter
--- OUTSIDE RECORDS SUMMARY | 2025-01-15 14:08 | XMS_ITS | Encounter Summary ---
Author Organization [facility] Address [address] [place] [address] Care Team Providers Care Exhibit Specialist Name Role Phone Beni Nguyen MD Primary Care Provider Beni Nguyen MD Unavailable [phone] Esther Connolly RN Unavailable [phone] Anastasia Rayo LPN Unavailable Unavailable Encounter Details Date Type Department Care Team (Late st Contact Info) Description 07/26/2024 Abstract [facility] 112 [facility] 110 [place] [address] Beni Nguyen MD 112 [facility] 110 [place] [address] Social History Tobacco Use Types Packs/Day Years [...] any clubs o r organizations such as samaritan groups, unions, fraternal or athletic groups, or [...] Recorded Patient Health Questionnaire-2 Score 0 10/05/2023 [facility] of Occupat ional Health - Occupational [...] EDT Procedure Visit [facility] 112 [facility] 120 [place] [address] Real Og DPM 3006 [facility] 5 [place] [address] 05/05/2025 1:30 PM EDT Office Visit RANDELL SUMMERS [address] [place] [address] Sandro Saunders DO [address] [place] [address] documented as of this encounter Visit Diagnoses Not on filedocumented in this encounter Care Teams Exhibit Specialist Relationship Specialty Start Date End Date Beni Nguyen MD [address] [facility] 110 [place] [address] PCP - General Internal Medicine 01/02/23 Beni Nguyen MD [address] [facility] [address] [place] [address] PCP - ACO Reach 01/12/23 Esther Connolly, HEATHER Clinical Advocate Family Medicine 09/27/24 11/08/24 Anastasia Rayo LPN 11/08/24 documented as of this encounter
--- OUTSIDE RECORDS SUMMARY | 2025-01-15 14:08 | XMS_ITS | Encounter Summary ---
Author Organization [facility] Address [address] [place] [address] Care Team Providers Care Brusher Hand Name Role Phone Beni Nguyen MD Primary Care Provider [phone] Beni Nguyen MD Unavailable [phone] Esther Connolly RN Unavailable [phone] Anastasia Rayo LPN Unavailable Unavailable Encounter Details Date Type Department Care Team (Late st Contact Info) Description 07/29/2024 Abstract [facility] 112 [facility] 110 [place] [address] Beni Nguyen MD 112 [facility] 110 [place] [address] Social History Tobacco Use Types Packs/Day Years [...] How often do you attend chur or worship services? Never 03/17/2023 Do you belong to any clubs o r organizations such as scientology groups, unions, fraternal or athletic groups, or [...] Recorded Patient Health Questionnaire-2 Score 0 10/05/2023 [facility] of Occupat ional Health - Occupational [...] Upcoming Encounters Date Type Department Care Team ([facility] st Contact Info) Description 01/30/2025 3:10 PM EDT Procedure Visit [facility] 112 [facility] 120 [place] [address] Real Og DPM 3006 [facility] 5 [place] [address] 05/05/2025 1:30 PM EDT Office Visit RANDELL SUMMERS [address] [place] [address] Sandro Saunders DO [address] [place] [address] documented as of this encounter Visit Diagnoses Not on filedocumented in this encounter Care Teams Brusher Hand Relationship Specialty Start Date End Date Beni Nguyen MD [address] [facility] 110 [place] [address] PCP - General Internal Medicine 01/02/23 Beni Nguyen MD [address] [facility] 110 [place] [address] PCP - ACO Reach 01/12/23 Esther Connolly, HEATHER Clinical Advocate Family Medicine 09/27/24 11/08/24 Anastasia Rayo LPN 11/08/24 documented as of this encounter
--- OUTSIDE RECORDS SUMMARY | 2025-01-15 14:08 | XMS_ITS | Encounter Summary ---
Author Organization [facility] Address [address] [place] [address] Care Team Providers Care Dinkey Engine Firer/Fireman Name Role Phone Beni Nguyen MD Primary Care Provider Beni Nguyen MD Unavailable [phone] Esther Connolly RN Unavailable [phone] Anastasia Rayo LPN Unavailable Unavailable Encounter Details Date Type Department Care Team (Late st Contact Info) Description 07/31/2024 Abstract [facility] 112 [facility] 110 [place] [address] Beni Nguyen MD 112 [facility] 110 [place] [address] Social History Tobacco Use Types Packs/Day Years [...] Upcoming Encounters Date Type Department Care Team ([facility] st Contact Info) Description 01/30/2025 3:10 PM EDT Procedure Visit [facility] 112 [facility] 120 [place] [address] Real Og DPM 3006 [facility] 5 [place] [address] 05/05/2025 1:30 PM EDT Office Visit RANDELL SUMMERS [address] [place] [address] Sandro Saunders DO [address] [place] [address] documented as of this encounter Visit Diagnoses Not on filedocumented in this encounter Care Teams Dinkey Engine Firer/Fireman Relationship Specialty Start Date End Date Beni Nguyen MD [address] [facility] 110 [place] [address] PCP - General Internal Medicine 01/02/23 Beni Nguyen MD [address] [facility] 110 [place] [address] PCP - ACO Reach 01/12/23 Esther Connolly, HEATHER Clinical Advocate Family Medicine 09/27/24 11/08/24 Anastasia Rayo LPN 11/08/24 documented as of this encounter
--- OUTSIDE RECORDS SUMMARY | 2025-01-15 14:08 | XMS_ITS | Encounter Summary ---
Author Organization [facility] Address [address] [place] [address] Care Team Providers Care Team Cdl Driver Name Role Phone Beni Nguyen MD Primary Care Provider [phone] Beni Nguyen MD Unavailable [phone] Esther Connolly RN Unavailable [phone] Anastasia Rayo LPN Unavailable Unavailable Encounter Details Date Type Department Care Team (Late st Contact Info) Description 07/26/2024 Abstract [facility] 112 [facility] 110 [place] [address] Beni Nguyen MD 112 [facility] 110 [place] [address] Social History Tobacco Use Types Packs/Day Years [...] any clubs o r organizations such as mormon groups, unions, fraternal or athletic groups, or [...] EDT Procedure Visit [facility] 112 [facility] 120 [place] [address] Real Og DPM 3006 [facility] 5 [place] [address] 05/05/2025 1:30 PM EDT Office Visit RANDELL SUMMERS [address] [place] [address] Sandro Saunders DO [address] [place] [address] documented as of this encounter Visit Diagnoses Not on filedocumented in this encounter Care Teams Team Cdl Driver Relationship Specialty Start Date End Date Beni Nguyen MD [address] [facility] 110 [place] [address] PCP - General Internal Medicine 01/02/23 Beni Nguyen MD [address] [facility] [address] [place] [address] PCP - ACO Reach 01/12/23 Esther Connolly, HEATHER Clinical Advocate Family Medicine 09/27/24 11/08/24 Anastasia Rayo LPN 11/08/24 documented as of this encounter
--- OUTSIDE RECORDS SUMMARY | 2025-01-15 14:09 | XMS_ITS | Encounter Summary ---
Author Organization [facility] Address [address] [place] [address] Care Team Providers Care Barrel Racer Name Role Phone Beni Nguyen MD Primary Care Provider [phone] Beni Nguyen MD Unavailable [phone] Esther Connolly RN Unavailable [phone] Anastasia Rayo LPN Unavailable Unavailable Encounter Details Date Type Department Care Team (Late st Contact Info) Description 05/10/2023 Orders Only [facility] [address] [place] [address] [place] [address] A, Unknown Practice [address] [phone] Social History Tobacco Use Types Packs/Day Years [...] often do you attend chur ch or nondenominational services? Never 03/17/2023 Do you [...] Upcoming Encounters Date Type Department Care Team ([facility] st Contact Info) Description 01/30/2025 3:10 PM EDT Procedure Visit [facility] 112 [facility] 120 [place] [address] Real Og DPM 3006 [facility] 5 [place] [address] 05/05/2025 1:30 PM EDT Office Visit RANDELL KRISTOPHER [address] [place] [address] Sandro Saunders DO [address] [place] [address] documented as of this encounter Procedures Procedure Name Priority Date/Time Associated Diagnosis Comments XR CHEST 1 VIEW Routine 05/09/2023 2:40 PM EDT ELECTROCARDIOGRAM REPORT Routine 023 9:52 AM EDT documented in this encounter Results * XR chest 1 view (05/09/2023 2:40 PM EDT) Anatomical Region Laterality Modality Chest Radiographic Michelle ging us Unknown Practice A IMG XR PROCEDURES Final Resul t * Electrocardiogram Report (05/09/2023 9:52 AM EDT) us Unknown Practice A IN CLINIC/BEDSIDE ORDERABLES Final Result documented in this encounter Visit Diagnoses Not on filedocumented in this encounter Care Teams Barrel Racer Relationship Specialty Start Date End Date Beni Nguyen MD [address] [facility] 110 [place] [address] PCP - General Internal Medicine 01/02/23 Beni Nguyen MD [address] [facility] 110 [place] [address] PCP - ACO Reach 01/12/23 Esther Connolly, RN Clinical Advocate Family Medicine 09/27/24 11/08/24 Anastasia Rayo LPN 11/08/24 documented as of this encounter
--- OUTSIDE RECORDS SUMMARY | 2025-01-15 14:09 | XMS_ITS | Encounter Summary ---
Author Organization [facility] Address [address] [place] [address] Care Team Providers Care Vocal Teacher Name Role Phone Beni Nguyen MD Primary Care Provider [phone] Beni Nguyen MD Unavailable [phone] Esther Connolly RN Unavailable [phone] Anastasia Rayo LPN Unavailable Unavailable Encounter Details Date Type Department Care Team (Late st Contact Info) Description 09/16/2024 Abstract [facility] 112 [facility] 110 [place] [address] Beni Nguyen MD 112 [facility] 110 [place] [address] Social History Tobacco Use Types Packs/Day Years [...] How often do you attend chur or tenriism services? Never 03/17/2023 Do you belong to [...] Upcoming Encounters Date Type Department Care Team ([facility] st Contact Info) Description 01/30/2025 3:10 PM EDT Procedure Visit [facility] 112 [facility] 120 [place] [address] Real Og DPM 3006 [facility] 5 [place] [address] 05/05/2025 1:30 PM EDT Office Visit RANDELL SUMMERS [address] [place] [address] Sandro Saunders DO [address] [place] [address] documented as of this encounter Visit Diagnoses Not on filedocumented in this encounter Care Teams Vocal Teacher Relationship Specialty Start Date End Date Beni Nguyen MD [address] [place] [address] [place] [address] PCP - General Internal Medicine 01/02/23 Beni Nguyen MD [address] [place] [address] [place] [address] PCP - ACO Reach 01/12/23 Esther Connolly, HEATHER Clinical Advocate Family Medicine 09/27/24 11/08/24 Anastasia Rayo LPN 11/08/24 documented as of this encounter
--- OUTSIDE RECORDS SUMMARY | 2025-01-15 14:09 | XMS_ITS | Encounter Summary ---
Author Organization [facility] Address [address] [place] [address] Care Team Providers Care Roulette Dealer Name Role Phone Beni Nguyen MD Primary Care Provider [phone] Beni Nguyen MD Unavailable [phone] Estehr Connolly RN Unavailable [phone] Anastasia Rayo LPN Unavailable Unavailable Encounter Details Date Type Department Care Team (Late st Contact Info) Description 09/17/2024 Abstract [facility] [address] [facility] 110 [place] [address] Beni Nguyen MD 112 [facility] 110 [place] [address] Social History Tobacco Use Types Packs/Day Years [...] How often do you attend chur or rastafari services? Never 03/17/2023 Do you [...] Recorded Patient Health Questionnaire-2 Score 0 10/05/2023 [facility] - [...] Upcoming Encounters Date Type Department Care Team ([facility] st Contact Info) Description 01/30/2025 3:10 PM EDT Procedure Visit [facility] [address] [facility] 120 [place] [address] Real Og DPM 3006 [facility] 5 [place] [address] 05/05/2025 1:30 PM EDT Office Visit RANDELL SUMMERS [address] [place] [address] Sandro Saunders DO [address] [place] [address] documented as of this encounter Visit Diagnoses Not on filedocumented in this encounter Care Teams Roulette Dealer Relationship Specialty Start Date End Date Beni Nguyen MD [address] [facility] 110 [place] [address] PCP - General Internal Medicine 01/02/23 Beni Nguyen MD [address] [facility] 110 [place] [address] PCP - ACO Reach 01/12/23 Esther Connolly, HEATHER Clinical Advocate Family Medicine 09/27/24 11/08/24 Anastasia Rayo LPN 11/08/24 documented as of this encounter
--- OUTSIDE RECORDS SUMMARY | 2025-01-15 14:09 | XMS_ITS | Encounter Summary ---
Author Organization [facility] Address [address] [place] [address] Care Team Providers Care Flue Dust Laborer Name Role Phone Beni Nguyen MD Primary Care Provider [phone] Beni Nguyen MD Unavailable [phone] Esther Connolly RN Unavailable [phone] Anastasia Rayo LPN Unavailable Unavailable Encounter Details Date Type Department Care Team (Late st Contact Info) Description 09/17/2024 Abstract [facility] [address] [facility] 110 [place] [address] Beni Nguyen MD 112 [facility] 110 [place] [address] Social History Tobacco Use Types Packs/Day Years [...] How often do you attend chur or scientologist services? Never 03/17/2023 Do you belong to [...] [address] [facility] 120 [place] [address] Real Og DPM [address] [facility] 5 [place] [address] 05/05/2025 1:30 PM EDT Office Visit RANDELL SUMMERS [address] [place] [address] Sandro Saunders DO [address] [place] [address] documented as of this encounter Visit Diagnoses Not on filedocumented in this encounter Care Teams Flue Dust Laborer Relationship Specialty Start Date End Date Beni Nguyen MD [address] [facility] 110 [place] [address] PCP - General Internal Medicine 01/02/23 Beni Nguyen MD [address] [facility] 110 [place] [address] PCP - ACO Reach 01/12/23 Esther Connolly, HEATHER Clinical Advocate Family Medicine 09/27/24 11/08/24 Anastasia Rayo LPN 11/08/24 documented as of this encounter
--- OUTSIDE RECORDS SUMMARY | 2025-01-15 14:09 | XMS_ITS | Encounter Summary ---
Author Organization [facility] Address [address] [place] [address] Care Team Providers Care Podiatric Assistant Name Role Phone Patrick ARMENTA MD, Beni Hamlin Primary Care Provider [phone] Source Comments In the event this information is protected by the Federal Confidentiality of Alcohol and Drug AbusePatient Records regulations: The Federal rules restrict any use of the information to criminally investigate or prosecute any alcohol or drug abuse patient.[facility] Encounter Details Date Type Department Care Team (Late st Contact Info) Description 2023 Lab Requisition [facility] [address] [place] [address] Ivan Barnhart MD [address] [place] [address] Person encountering health services to consult on behalf of another person Social History Tobacco Use Types Packs/Day Years [...] on file documented as of this encounter Procedures Procedure Name Priority Date/Time Associated Diagnosis Comments SURGICAL PATHOLOGY REFERENCE LAB CONSULT Routine 2023 9:46 AM EST Person encountering health services to consult on behalf of another person documented in this encounter Results * SURGICAL PATHOLOGY REFERENCE LAB CONSULT (2023 9:46 AM EST) Case Report Surgical Pathology Report Case: [id number] Authorizing Provider: Ivan Barnhart MD Collected: 2023 09:46 AM Ordering Location: [facility] Received: 2023 09:46 AM [facility] Pathologist: Olivier Mina MD Specimen: SLIDE(S), 2 SLIDES [id number] 2023 12:15 PM EST [facility] FINAL DIAGNOSIS [facility] [place], [place] ([id number], 09/14/23) A. Urinary bladder, biopsy: - Benign nephrogenic adenoma. JKM 2023 2023 12:15 PM EST [facility] at 1215 EST Diagnosis Comment Thank you for allowing me to review this bladder lesion from an 78-year-old man. 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 2023 12:15 PM EST [facility] Clinical History CONSULT REQUESTED 2023 12:15 PM EST [facility] Performing Lab Diagnostic interpretation performed at [facility], [address] [place] [address]# [id number] Molybdenum Steamer Operator: Jaylan Mcfadden M.D. 2023 12:15 PM EST [facility] Blocks or Slides MICROSCOPE SLIDE / Unknown 2023 9:46 AM EST 2023 9:46 AM EST us Ivan Barnhart MD SURGICAL PATHOLOGY Final Result [facility] [address] [place] [address] [address] [place] [address], documented in this encounter Visit Diagnoses Diagnosis Person encountering health services to consult on behalf of another person Other person consulting on behalf of another person documented in this encounter Care Teams Podiatric Assistant Relationship Specialty Start Date End Date Beni Nguyen II, MD [address] [facility] 110 [place] [id number] PCP - General Internal Medicine 12/05/16 documented as of this encounter
--- OUTSIDE RECORDS SUMMARY | 2025-01-15 14:09 | XMS_ITS | Encounter Summary ---
Author Organization [facility] Address [address] [place] [address] Care Team Providers Care Tow Car Driver Name Role Phone Beni Nguyen MD Primary Care Provider [phone] Beni Nguyen MD Unavailable [phone] Esther Connolly RN Unavailable [phone] Anastasia Rayo LPN Unavailable Unavailable Encounter Details Date Type Department Care Team (Late Contact Info) Description 12/23/2022 Abstract [facility] 112 [facility] 110 [place] [address] Beni Nguyen MD 112 [facility] 110 [place] [address] Social History Tobacco Use Types Packs/Day Years Used Date Smoking Tobacco: Never Smokeless Tobacco: Never Tobacco Cessation:Counseling Given: Not Answered Alcohol Use Standard Drinks/Week Comments Never 0 (1 standard drink = 0.6 oz pur e alcohol) Sex and Gender Information Value Date Recorded Sex Assigned at Not on file Legal Sex Male 6:56 PM EDT Gender Identity Not on file Sexual Orientation Not on file documented as of this encounter Plan of Treatment Upcoming Encounters Date Type Department Care Team (Late Contact Info) Description 01/30/2025 3:10 PM EDT Procedure Visit [facility] 112 [facility] 120 [place] [address] Real Og, DPM 3006 [facility] 5 [place] [address] 05/05/2025 1:30 PM EDT Office Visit RANDELL SUMMERS [address] [place] [address] Sandro Saunders DO [address] [place] [address] documented as of this encounter Visit Diagnoses Not on filedocumented in this encounter Care Teams Tow Car Driver Relationship Specialty Start Date End Date Beni Nguyen MD [address] [place] 110 [place] [address] PCP - General Internal Medicine 01/02/23 Beni Nguyen MD [address] [place] 110 [place] [address] PCP - ACO Reach 01/12/23 Esther Connolly, RN Clinical Advocate Family Medicine 09/27/24 11/08/24 Anastasia Rayo LPN 11/08/24 documented as of this encounter
--- OUTSIDE RECORDS SUMMARY | 2025-01-15 14:09 | XMS_ITS | Encounter Summary ---
Author Organization [facility] Address [address] [place] [address] Care Team Providers Care Instructor [employer]ence [employer] Name Role Phone Beni Nguyen MD Primary Care Provider [phone] Beni Nguyen MD Unavailable [phone] Esther Connolly RN Unavailable [phone] Anastasia Rayo LPN Unavailable Unavailable Encounter Details Date Type Department Care Team (Late st Contact Info) Description 03/14/2023 Orders Only [facility] [address] [place] [address] [place] [address] Leela Cherry, MAT WEAVER [address] [facility] 110 [place] [address] Social History Tobacco Use Types Packs/Day Years [...] often do you attend chur ch or tenriism services? Never 03/17/2023 Do you [...] and heating? Not hard at all 03/17/2023 [facility] - [...] place to sleep or slept in a alf (including now)? No 03/17/2023 Sex and Gender Information Value Date Recorded Sex Assigned at Not on file Legal Sex Male 6:56 PM EDT Gender Identity Not on file Sexual Orientation Not on file documented as of this encounter Functional Status * Audit-C Score Answer Date of Assessment Author 1 03/17/2023 10:45 AM EDT MondaySalma LPN * Question Answer Date of Assessment Author Q1: How often do you have a drink containing alcohol? Monthly or less 03/17/2023 10:45 AM EDT MondaySalma L PN Q2: How many drinks containing alcohol do you have on a typical day when you are drinking? 1 or 2 03/17/2023 10:45 AM EDT MondaySalma L PN Q3: How often do you have six or more drinks on one occasion? Never 03/17/2023 10:45 AM EDT WarrenSalma armando L PN documented as of this encounter Plan of Treatment Upcoming Encounters Date Type Department Care Team (Late st Contact Info) Description 01/30/2025 3:10 PM EDT Procedure Visit [facility] 112 [facility] 120 [place] [address] Real Og DPM 3006 [facility] 5 [place] [address] 05/05/2025 1:30 PM EDT Office Visit RANDELL SUMMERS [address] [place] [address] Sandro Saunders DO [address] [place] [address] documented as of this encounter Procedures Procedure Name Priority Date/Time Associated Diagnosis Comments HOME SLEEP TEST Routine 03/10/2023 9:21 AM EDT documented in this encounter Results * Home sleep test (03/10/2023 9:21 AM EDT) us Leela Cherry [facility] ORDERABLES Julianna l Result documented in this encounter Visit Diagnoses Not on filedocumented in this encounter Care Teams Instructor [employer]ence [employer] Relationship Specialty Start Date End Date Beni Nguyen MD [address] [facility] 110 [place] [address] PCP - General Internal Medicine 01/02/23 Beni Nguyen MD [address] [facility] 110 [place] [address] PCP - ACO Reach 01/12/23 Esther Connolly, HEATHER Clinical Advocate Family Medicine 09/27/24 11/08/24 Anastasia Rayo LPN 11/08/24 documented as of this encounter
--- OUTSIDE RECORDS SUMMARY | 2025-01-15 14:09 | XMS_ITS | Encounter Summary ---
Author Organization [facility] Address [address] [place] [address] Care Team Providers Care Allergy And Immunology Specialist Name Role Phone Beni Nguyen MD Primary Care Provider [phone] Beni Nguyen MD Unavailable [phone] Esther Connolly RN Unavailable [phone] Anastasia Rayo LPN Unavailable Unavailable Encounter Details Date Type Department Care Team (Late st Contact Info) Description 09/19/2024 Abstract [facility] 112 [facility] 110 [place] [address] Beni Nguyen MD 112 [facility] 110 [place] [address] Social History Tobacco Use Types Packs/Day Years [...] How often do you attend chur or jew services? Never 03/17/2023 Do you belong to [...] Recorded Patient Health Questionnaire-2 Score 0 10/05/2023 [facility] - [...] Upcoming Encounters Date Type Department Care Team ([facility] st Contact Info) Description 01/30/2025 3:10 PM EDT Procedure Visit [facility] 112 [facility] 120 [place] [address] Real Og DPM 3006 [facility] 5 [place] [address] 05/05/2025 1:30 PM EDT Office Visit RANDELL SUMMERS [address] [place] [address] Sandro Saunders DO [address] [place] [address] documented as of this encounter Visit Diagnoses Not on filedocumented in this encounter Care Teams Allergy And Immunology Specialist Relationship Specialty Start Date End Date Beni Nguyen MD [address] [facility] 110 [place] [address] PCP - General Internal Medicine 01/02/23 Beni Nguyen MD [address] [facility] 110 [place] [address] PCP - ACO Reach 01/12/23 Esther Connolly, HEATHER Clinical Advocate Family Medicine 09/27/24 11/08/24 Anastasia Rayo LPN 11/08/24 documented as of this encounter
--- OUTSIDE RECORDS SUMMARY | 2025-01-15 14:09 | XMS_ITS | Encounter Summary ---
Author Organization [facility] Address [address] [place] [address] Care Team Providers Care Media Marketing Director Name Role Phone Beni Nguyen MD Primary Care Provider [phone] Beni Nguyen MD Unavailable [phone] Esther Connolly RN Unavailable [phone] Anastasia Rayo LPN Unavailable Unavailable Encounter Details Date Type Department Care Team (Late st Contact Info) Description 09/24/2024 Abstract [facility] 112 [facility] 110 [place] [address] Beni Nguyen MD 112 [facility] 110 [place] [address] Social History Tobacco Use Types Packs/Day Years [...] How often do you attend chur or latter-day services? Never 03/17/2023 Do you belong to [...] Recorded Patient Health Questionnaire-2 Score 0 10/05/2023 [facility] Occupat ional [facility] - [...] Upcoming Encounters Date Type Department Care Team ([facility] st Contact Info) Description 01/30/2025 3:10 PM EDT Procedure Visit [facility] 112 [facility] 120 [place] [address] Real Og DPM 3006 [facility] 5 [place] [address] 05/05/2025 1:30 PM EDT Office Visit RANDELL SUMMERS [address] [place] [address] Sandro Saunders DO [address] [place] [address] documented as of this encounter Visit Diagnoses Not on filedocumented in this encounter Care Teams Media Marketing Director Relationship Specialty Start Date End Date Beni Nguyen MD [address] [facility] 110 [place] [address] PCP - General Internal Medicine 01/02/23 Beni Nguyen MD [address] [facility] 110 [place] [address] PCP - ACO Reach 01/12/23 Esther Connolly, HEATHER Clinical Advocate Family Medicine 09/27/24 11/08/24 Anastasia Rayo LPN 11/08/24 documented as of this encounter
--- OUTSIDE RECORDS SUMMARY | 2025-01-15 14:09 | XMS_ITS | Encounter Summary ---
Author Organization [facility] Address [address] [place] [address] Care Team Providers Care Martial Arts Instructor Name Role Phone Beni Nguyen MD Primary Care Provider [phone] Beni Nguyen MD Unavailable [phone] Esther Connolly RN Unavailable [phone] Anastasia Rayo LPN Unavailable Unavailable Encounter Details Date Type Department Care Team (Late st Contact Info) Description 09/11/2024 Abstract [facility] 112 [facility] 110 [place] [address] Beni Nguyen MD 112 [facility] 110 [place] [address] Social History Tobacco Use Types Packs/Day Years [...] How often do you attend chur or bahai services? Never 03/17/2023 Do you belong to any clubs o r organizations such as adventism groups, unions, fraternal or athletic groups, or [...] Recorded Patient Health Questionnaire-2 Score 0 10/05/2023 [facility] [...] CI PODIATRY 112 [facility] 120 [place] [address] Real Og DPM 3006 [facility] 5 [place] [address] 05/05/2025 1:30 PM EDT Office Visit RANDELL SUMMERS [address] [place] [address] Sandro Saunders DO [address] [place] [address] documented as of this encounter Visit Diagnoses Not on filedocumented in this encounter Care Teams Martial Arts Instructor Relationship Specialty Start Date End Date Beni Nguyen MD [address] [facility] 110 [place] [address] PCP - General Internal Medicine 01/02/23 Beni Nguyen MD [address] [facility] [address] [place] [address] PCP - ACO Reach 01/12/23 Esther Connolly, HEATHER Clinical Advocate Family Medicine 09/27/24 11/08/24 Anastasia Rayo LPN 11/08/24 documented as of this encounter
--- OUTSIDE RECORDS SUMMARY | 2025-01-15 14:09 | XMS_ITS | Encounter Summary ---
Author Organization [facility] Address [address] [place] [address] Care Team Providers Care Racebook Writer Name Role Phone Beni Nguyen MD Primary Care Provider [phone] Beni Nguyen MD Unavailable [phone] Esther Connolly RN Unavailable [phone] Anastasia Rayo LPN Unavailable Unavailable Encounter Details Date Type Department Care Team (Late st Contact Info) Description 09/30/2024 Abstract [facility] 112 [facility] 110 [place] [address] Beni Nguyen MD 112 [facility] 110 [place] [address] Social History Tobacco Use Types Packs/Day Years [...] Recorded Patient Health Questionnaire-2 Score 0 10/05/2023 [facility] Occupat ional Health [...] Upcoming Encounters Date Type Department Care Team ([facility] st Contact Info) Description 01/30/2025 3:10 PM EDT Procedure Visit [facility] 112 [facility] 120 [place] [address] Real Og DPM 3006 [facility] 5 [place] [address] 05/05/2025 1:30 PM EDT Office Visit RANDELL SUMMERS [address] [place] [address] Sandro Saunders DO [address] [place] [address] documented as of this encounter Visit Diagnoses Not on filedocumented in this encounter Care Teams Racebook Writer Relationship Specialty Start Date End Date Beni Nguyen MD [address] [facility] 110 [place] [address] PCP - General Internal Medicine 01/02/23 Beni Nguyen MD [address] [facility] 110 [place] [address] PCP - ACO Reach 01/12/23 Esther Connolly, HEATHER Clinical Advocate Family Medicine 09/27/24 11/08/24 Anastasia Rayo LPN 11/08/24 documented as of this encounter
--- OUTSIDE RECORDS SUMMARY | 2025-01-15 14:09 | XMS_ITS | Clinical Summary ---
Author Organization [facility] Address [address] [place], [place] [id number] Care Team Providers Care Director Sales Training Name Role Phone Patrick ARMENTA MD, Beni Hamlin Primary Care Provider [phone] Allergies No known active allergies Medications pyridostigmine (MESTINON) 60 mg tablet Take 100 mg by mouth four times daily. 04/05/2017 Active lisinopril (ZESTRIL, PRINIVIL) 20 mg tablet Take by mouth once daily. 03/04/2017 Active MULTIVIT-MINERA LS/FERROUS FUM (MULTI VITAMIN ORAL) Take by mouth once daily. Active simvastatin (ZOCOR) 40 mg tablet Take by mouth once daily. 03/04/2017 Active triamterene-hyd rochlorothiazid e (MAXZIDE-25) 37.5-25 mg per tablet Take by mouth once daily. 03/04/2017 Active predniSONE (DELTASONE) 10 mg tablet 10/31/2018 Active OMEGA-3 FATTY ACIDS-EPA ORAL Take by mouth. Active metoprolol tartrate, short acting, (LOPRESSOR) 25 mg tablet Take 25 mg by mouth twice daily. Active ELIQUIS 5 mg tab(s) Take 5 mg by mouth twice daily. 06/08/2019 Active gabapentin (NEURONTIN) 300 mg capsule Take 300 mg by mouth twice daily. 5 07/05/2019 Active baclofen (LIORESAL) 10 mg tablet Take 10 mg by mouth. 12/07/2021 Active hydrALAZINE (APRESOLINE) 50 mg tablet Take 50 mg by mouth twice daily. 12/07/2021 Active potassium chloride SR (MICRO-K) 10 mEq CR capsule Take 10 mEq by mouth. 12/07/2021 Active nebivolol (BYSTOLIC) 10 mg tablet Take 10 mg by mouth. 12/07/2021 Active furosemide (LASIX) 20 mg tablet 03/22/2022 Active [place]-3 Fatty Acids, FISH OIL, 360-1,200 mg cap Fish Oil 360 mg-1,200 mg capsule Take 1 capsule twice a day by oral route. Active loratadine (WAL-ITIN ALLER-MELTS ORAL) Take by mouth. 02/17/2022 Active Active Problems No known active problems Family History Medical History Relation Comments No Ocular Disease Father No Ocular Disease Mother Relation Status Comments Father Mother Social History Tobacco Use Types Packs/Day Years [...] Sign Reading Time Taken Comments Blood Pressure 132/55 05/06/2022 12:45 PM EDT Pulse 67 05/06/2022 12:45 PM EDT Temperature 36.6 C (97.8 F) 07/24/2019 1:57 PM EST Respiratory Rate 18 07/24/2019 1:57 PM EST Oxygen Saturation 93% 07/24/2019 1:57 PM EST Inhaled Oxygen Concentration - - Weight 148.2 kg (326 lb 11.2 oz) 2021 12:45 PM EDT Height 154.9 cm (5' 0.98 ) 07/24/2019 1:57 PM ES T Body Mass Index 61.76 07/24/2019 1:57 PM EST Plan of Treatment Health Maintenance Due Date Last Done Comments Anxiety Screening 1963 Depression Screening 1963 DTaP,Tdap,Td Vaccine (1 - Tdap) 1962 Shingrix Vaccine (2 of 3) 07/03/2012 05/08/2012 RSV Vaccine (1 - 1-dose 75+ series) 2018 Covid-19 Vaccine (4 - 2023-2 5 season) 2024 05/25/2021, 11/10/2020, 10/19/2020 Advance Directive Discussion 08/21/2024 Influenza Vaccine (Season Ended) 2025 05/20/2021, 05/19/2021, 05/06/2020, Additional history exists Diabetes Screening 04/27/2025 04/27/2022, 1 09/07/2020, 07/29/2020, Additional history exists Pneumococcal Vaccine: 50+ Completed 2017, 10/26/2015, 10/19/2004 Insurance MEDICARE Member Subscriber Plan / Payer (Ef fective 2016-Present) Name:Ankur Reilly Member ID:[id number] Relation to Subscriber:Self Name:Ankur Reilly Subscriber ID:[id number] Payer ID:Not on file Group ID:Not on file Type:Medicare Address: [facility] [place] [id number] Care Teams Director Sales Training Relationship Specialty Start Date End Date Beni Nguyen II, MD [address] [facility] [address] [place] [address] PCP - General Internal Medicine 12/05/16
--- OUTSIDE RECORDS SUMMARY | 2025-01-15 14:09 | XMS_ITS | Encounter Summary ---
Author Organization [facility] Address [address] [place] [address] Care Team Providers Care Evaporator Operator Molasses Name Role Phone Beni Nguyen MD Primary Care Provider [phone] Beni Nguyen MD Unavailable [phone] Esther Connolly RN Unavailable [phone] Anastasia Rayo LPN Unavailable Unavailable Encounter Details Date Type Department Care Team (Late st Contact Info) Description 03/28/2023 Abstract [facility] [address] [facility] 110 [place] [address] Beni Nguyen MD [address] [facility] 110 [place] [address] Social History Tobacco Use Types Packs/Day Years [...] often do you attend chur ch or sikhism services? Never 03/17/2023 Do you belong to [...] and heating? Not hard at all 03/17/2023 [facility] Occup[facility] ional Health - Occupational [...] CI PODIATRY 112 [facility] 120 [place] [address] Real Og DPM 3006 [facility] 5 [place] [address] 05/05/2025 1:30 PM EDT Office Visit [facility] [address] [place] [address] Sandro Saunders DO [address] [place] [address] documented as of this encounter Visit Diagnoses Not on filedocumented in this encounter Care Teams Evaporator Operator Molasses Relationship Specialty Start Date End Date Beni Nguyen MD [address] [place] [address] PCP - General Internal Medicine 01/02/23 Beni Nguyen MD [address] [facility] 110 [place] [address] PCP - ACO Reach 01/12/23 Esther Connolly, HEATHER Clinical Advocate Family Medicine 09/27/24 11/08/24 Anastasia Rayo LPN 11/08/24 documented as of this encounter
--- OUTSIDE RECORDS SUMMARY | 2025-01-15 14:09 | XMS_ITS | Encounter Summary ---
Author Organization [facility] Address [address] [place] [address] Care Team Providers Care Line Clearance Foreman Name Role Phone Beni Nguyen MD Primary Care Provider [phone] Beni Nguyen MD Unavailable [phone] Esther Connolly RN Unavailable [phone] Anastasia Rayo LPN Unavailable Unavailable Encounter Details Date Type Department Care Team (Late st Contact Info) Description 10/09/2024 Abstract [facility] [address] [facility] 110 [place] [address] Beni Nguyen MD 112 [facility] 110 [place] [address] Social History Tobacco Use Types Packs/Day Years [...] any clubs o r organizations such as caodaism groups, unions, fraternal or athletic groups, or [...] Recorded Patient Health Questionnaire-2 Score 0 10/05/2023 [facility] of Occupat [...] Upcoming Encounters Date Type Department Care Team ([facility] st Contact Info) Description 01/30/2025 3:10 PM EDT Procedure Visit [facility]OD[facility]ATRY 112 [facility] 120 [place] [address] Real Og DPM 3006 [facility] 5 [place] [address] 05/05/2025 1:30 PM EDT Office Visit [facility] [address] [place] [address] Sandro Saunders DO [address] [place] [address] documented as of this encounter Visit Diagnoses Not on filedocumented in this encounter Care Teams Line Clearance Foreman Relationship Specialty Start Date End Date Beni Nguyen MD [address] [facility] 110 [place] [address] PCP - General Internal Medicine 01/02/23 Beni Nguyen MD [address] [facility] 110 [place] [address] PCP - ACO Reach 01/12/23 Esther Connolly, HEATHER Clinical Advocate Family Medicine 09/27/24 11/08/24 Anastasia Rayo LPN 11/08/24 documented as of this encounter
--- OUTSIDE RECORDS SUMMARY | 2025-01-15 14:09 | XMS_ITS | Encounter Summary ---
Author Organization [facility] Address [address] [place] [address] Care Team Providers Care Hearing Therapist Name Role Phone Beni Nguyen MD Primary Care Provider [phone] Beni Nguyen MD Unavailable [phone] Esther Connolly RN Unavailable [phone] Ansatasia Rayo LPN Unavailable Unavailable Encounter Details Date Type Department Care Team (Late st Contact Info) Description 09/11/2024 Abstract [facility] 112 [facility] 110 [place] [address] Beni Nguyen MD 112 [facility] 110 [place] [address] Social History Tobacco Use Types Packs/Day Years [...] any clubs o r organizations such as alevism groups, unions, fraternal or athletic groups, or [...] Patient Health Questionnaire-2 Score 0 10/05/2023 [facility] of Occupat ional Health - Occupational [...] CI PODIATRY 112 [facility] 120 [place] [address] Real Og DPM 3006 [facility] 5 [place] [address] 05/05/2025 1:30 PM EDT Office Visit [facility] [address] [place] [address] Sandro Saunders DO [address] [place] [address] documented as of this encounter Visit Diagnoses Not on filedocumented in this encounter Care Teams Hearing Therapist Relationship Specialty Start Date End Date Beni Nguyen MD [address] [facility] 110 [place] [address] PCP - General Internal Medicine 01/02/23 Beni Nguyen MD [address] [facility] [address] [place] [address] PCP - ACO Reach 01/12/23 Esther Connolly, HEATHER Clinical Advocate Family Medicine 09/27/24 11/08/24 Anastasia Rayo LPN 11/08/24 documented as of this encounter
--- OUTSIDE RECORDS SUMMARY | 2025-01-15 14:09 | XMS_ITS | Patient Health Record ---
Author Organization [facility] Address [address] [place] [address] Care Team Providers Care Skilled Trades Teacher Name Role Phone Wilton Kramer Unavailable [phone] Nina Arenas Unavailable [phone] Reason For Referral Reason MARIE................. ...Please obtain authorization for left knee MRI Diagnosis 1 Pain, joint, knee, l eft (M25.562) Referral Organization [facility] Referring Provider First Name Wilton Referring Provider Last Name Nia Referring Provider Speciality Orthopedic Surgery [facility] Referred Address [place], [place], Procedure 1 MRI Joint Lower Ext w/o Dye ([id number]) General Notes Candida Little 024 12:37:13 PM >PER AVAILITY, PATIENT IS ACTIVE PART A AND PART B, NO AUTH REQUIRED MA NOTIFIED REF FAXED TO D[facility]ERS Kimberly 03/04/2024 01:13:24 PM >Faxed order to [facility]. Notified patient. Referral Priority Routine Problems Problem Type SNOMED Code ICD Code Onset Dates Problem Status W/U Status Risk Notes Problem [id number] Primary osteoarthritis of left knee (M17.12) Active confirmed Encounters Encounter Location Date Provider Diagnosis [facility] [address] [place] [address] 03/04/2024 Nina Arenas Pain, joint, knee, left M25.562 [facility] [address] [place] [address] [address] [facility] [facility] [place] [address] 03/13/2024 Wilton Kramer Primary osteoarthrit is of left knee M17.12 [facility] [address] [place] [address] 03/18/2024 Wilton Kramer [facility] [address] [place] [address] 05/14/2024 Wilton Kramer Primary osteoarthrit is of left knee M17.12 and Pain, joint, knee, left M25.562 [facility] [address] [facility] [address] HAYNES [place] [place] [address] 05/20/2024 Wilton Kramer Assessments Encounter Date Diagnosis (ICD Code) Assessment Notes Treatment Notes Treatment Clinical Notes Section Notes 03/04/2024 Pain, joint, knee, left (ICD-10 - M25.562) Left knee pain-possible tibial plateau stress fracture Left knee osteoarthritis 03/13/2024 Primary osteoarthritis of left knee (ICD-10 - M17.12) 05/14/2024 Pain, joint, knee, left (ICD-10 - M25.562) 05/14/2024 Primary osteoarthritis of left knee (ICD-10 - M17.12) 03/04/2024 Other I reviewed the patient's x-ray results and discussed that his exam was concerning for a stress fracture of his tibial plateau. I have ordered an MRI of the left knee to evaluate this further. Patient will continue to use his walker and attempt to be nonweightbearing until he returns to review the results. Left knee pain-possible tibial plateau stress fracture Left knee osteoarthritis 03/13/2024 Other Patient's knee symptoms have significantly improved. I recommended therapy at home for his weakness. He will follow-up on an as-needed basis. Import medication Plan Of Treatment Pending Test Test Name Order Date MRI : Knee W/O Contrast Left - 90211 Home PT 05/14/2024 [facility]- PT/OT EVAL AND TREAT 3X/WEEK FOR 6 WEEKS 03/13/2024 Insurance Providers Payer Name Payer Address Payer Phone Subscriber Number Group Number Insured Name Patient Relationship to Insured Coverage Start Date Coverage [place] [address] [place] [address] [id number] TAURUS GARCIA Self - patient is the insured [facility] SUPPLEMENT [address] [place] [phone] [id number] TAURUS GARCIA Self - patient is the insured
--- NOTE | 2025-01-15 14:25 | PM.CN ---
Consult Note: HPI Data of Consult Patient: known to practice within the last 3 years Requesting Physician: Kimberly Wright NP Primary Care Provider: KOMAL SCHAFFER Consult Narrative Reason for consult: f/u Narrative: Ankur Reilly a pleasant 79 year old male presents for evaluation of chronic low back and BLE pain secondary to lumbar stenosis with NC, lumbar spondylosis, lumbar DDD, and sacroilitis. pt has failed to benefit from > 6 weeks of provider guided HEP/PT, heat, ice, tylenol, and is on eliquis so he cannot take NSAIDs. pain today 6/10 increasing to 10/10 with standing, walking, activity. utilizing gabapentin, percocet, lidocaine patches with mild relief at this time, denies side effects. since last visit was placed on NNCP for requesting opioids from PCP while on opioids through our office, pt verbalizes understanding. recently underwent bilateral L4-5 TFESI with >50% improvement ongoing, notes continued right SIJ pain. cc:: CC: Kimberly Wright NP Review of Systems ROS Status of ROS 10 or more systems reviewed and unremarkable except as noted in history and below PFSH PFS Medical History Myasthenia gravis ?G70.00 - Myasthenia gravis without (acute) exacerbation (ICD-10) CKD (chronic kidney disease) stage 3, GFR 30-59 ml/min ?N18.30 - Chronic kidney disease, stage 3 unspecified (ICD-10) History of pulmonary embolism ?Z86.711 - Personal history of pulmonary embolism (ICD-10) Hypertension ?I10 - Essential (primary) hypertension (ICD-10) Bladder cancer ?C67.9 - Malignant neoplasm of bladder, unspecified (ICD-10) Pulmonary embolism ?I26.99 - Other pulmonary embolism without acute cor pulmonale (ICD-10) Surgical History Previous back surgery ?Z98.890 - Other specified postprocedural states (ICD-10) History of appendectomy ?Z90.49 - Acquired absence of other specified parts of digestive tract (ICD-10) Family History Mother Family history of cancer Grandmother Family history of diabetes mellitus Father Family history of myocardial infarction Social History Within the past year, how often did you have a drink containing alcohol: monthly or less Within the past year, how many standard drinks containing alcohol did you have on a typical day: 1 or 2 Within the past year, how often did you have six or more drinks on one occasion: never Total score: 0 Score interpretation: A score less than 4 is consistent with normal alcohol consumption. 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 Known occupational exposures/hazards: No Highest level of school completed/degree received: high school graduate Are you now , , , , never or living with a partner: In a typical week, how many times do you talk on the telephone with family, friends, or neighbors: once per week How often do you get together with friends or relatives: once per week How often do you attend amish or confucianism services: never Do you belong to any clubs or organizations such as amish groups unions, fraVidmind or athletic groups, or school groups: no Total score: 1 Score interpretation: A score of less than or equal to 1 indicates the most socially isolated. Little interest or pleasure in doing things: not at all Feeling down, depressed, or hopeless: not at all Feel stressed/tense/nervous/anxious/difficulty sleeping: not at all Due to disability, difficulty making decisions: No Do you think of yourself as: straight/heterosexual Gender Identity: male Meds Home Medications and Allergies Home Medications ?Medication ?Instructions ?Recorded ?Confirmed ?Type apixaban 5 mg tablet (Eliquis) 5 mg PO Q12H 05/09/23 12/30/24 History furosemide 20 mg tablet 40 mg PO DAILY 05/09/23 12/30/24 History loratadine 10 mg tablet (Claritin) 10 mg PO DAILY 05/09/23 12/30/24 History multivitamin 1 tab PO DAILY 05/09/23 12/30/24 History nebivolol 10 mg tablet 10 mg PO DAILY 05/09/23 12/30/24 History omega-3 fatty acids 1,200 mg PO BID 05/09/23 12/30/24 History potassium chloride 10 mEq 20 meq PO DAILY 05/09/23 12/30/24 History tablet,extended release(part/cryst) prednisone 10 mg tablet 15 mg PO DAILY 05/09/23 12/30/24 History pyridostigmine bromide 60 mg tablet 60 mg PO Q6H 05/09/23 12/30/24 History simvastatin 40 mg tablet 40 mg PO DAILY 05/09/23 12/30/24 History gabapentin 300 mg capsule 300 mg PO Q12H 12/18/23 12/30/24 History naloxone 4 mg/actuation nasal 1 spray intranasal Q2M PRN opioid 12/28/23 12/30/24 Rx spray (Narcan) overdose #2 ea clotrimazole 1 % topical cream 1 applic topical BID 09/09/24 12/30/24 History oxycodone-acetaminophen 5 mg-325 1 tab PO DAILY PRN pain 09/09/24 12/30/24 History mg tablet (Percocet) spironolactone 25 mg tablet 25 mg PO DAILY 09/09/24 12/30/24 History oxycodone-acetaminophen 5 mg-325 1 tab PO BID PRN pain #60 tabs 01/08/25 Rx mg tablet (Percocet) Allergies Allergy/AdvReac Type Severity Reaction Status Date / Time No Known Drug Allergies Allergy Verified 12/30/24 10:43 Exam Constitutional Documenting provider has reviewed patient's vital signs: yes Common normals: no apparent distress, oriented x3, healthy appearing, alert and well nourished General appearance: cooperative Nutritional appearance: obese HENMT Common normals: normocephalic, hearing grossly normal bilaterally and moist oral mucous membranes Head and scalp: normocephalic Eye Common normals: PERRL Pupil: PERRL Neck & C-Spine Common normals: full ROM General: normal visual inspection Chest Common normals: inspection of chest normal Respiratory Common normals: normal respiratory effort, no retractions and no use of accessory muscles Back & Pelvis Lumbar spine/lower back: lumbar spinal tenderness, paraspinal muscle tenderness and straight leg raise negative bilaterally Sacroiliac joints: SI joint(s) abnormal Other: right sij positive jorge(patricks), gaenslens, thigh thrust, compression test Neuro Common normals: oriented x3 Sensorium/orientation: alert Gait (neuro): antalgic and assistive device used (walker) Psych Common normals: mental status grossly normal, thought process normal, cooperative, affect normal, speech normal and activity/motor behavior normal Speech: normal speech Thought process: normal thought process Results Additional Findings Additional findings: If on a controlled substance or opioids, I have checked an [place]AR[place] report on this patient and there are no aberrancies noted in the prescribing history.??If on a controlled substance or opioid a drug screen was completed and reviewed within the last year, and if there has not been a drug screen completed we ordered one today to monitor higher risk, state monitored pain medication use. As part of providing excellent, safe, comprehensive care, the following was completed at our patient's visit: 1. A medication reconciliation and review to ensure accurate knowledge of current/active medications, including asking our patients to inform us about any [id number]-[id number] medications or herbal remedies/nutritional supplements/alternative remedies. 2. A review to specifically ensure our patients have had annual screening for screening for depression, screening for tobacco use, and screening for unhealthy alcohol use. For concerning screenings had a discussion with the patient, provided patient education, and recommended follow-up with primary care provider when appropriate. If patient noted with a risk of falling, they received education on strength, gait, and balance training to prevent future risk of falling. Portions of this note may have been carried over from the previous visit and updated as appropriate. Please note this office utilizes paper charting in addition to the electronic medical record. A list of current medications, vitals, and PMH is available there as the clinical staff outside of myself do not have access to [employer] charting during the clinic day operations. As part of providing quality comprehensive care the current medications, vitals, and PMH were reviewed in the paper chart. Assessment and Plan Assessment and Plan (1) Sacroiliitis: Assessment and Plan: The patient has had over 3 months of moderate to severe low back and right SIJ pain with functional impairment and inadequate response to conservative care including NSAIDS (unless there are contraindication such as concurrent blood thinners), multiple oral or topical pain medications, and home exercise program/physical therapy.? Patient has completed >6 weeks of guided home exercise program and/or formal physical therapy program without relief of their symptoms.? The Oswestry Disability Index was completed, and the patient scored a 36%.? The patient noted the following:?? moderate to severe pain with standing, walking, sitting, sleeping We discussed the risks and benefits of the procedure with the patient, and we are NOT planning on using sedation as outlined in the guidelines from Medicare unless there is a documented reason that sedation would be strongly recommended.??The procedure will be completed with fluoroscopic guidance.? (2) Lumbar stenosis with neurogenic claudication: Plan repeat right SIJ injection under fluoroscopy, previous injection provided at least 50% improvement for 3 months continue NNCP, will continue medications through PCP continue HEP as tolerated, continue PT as planned f/u 2 weeks after injection
== END 2025-01-15 14:02 | disposition home or self-care (01) ==
LOC: PM 14:01
PROVIDERS: PCP Internal Medicine; Visit Provider Nurse Practitioner
DX: M46.1 Sacroiliitis, not elsewhere classified (principal); M48.062 Spinal stenosis, lumbar region with neurogenic claudication
CPT/HCPCS: G0463

== ENCOUNTER 2025-01-27 11:25 | Day surgery (SDC) | payer MEDICARE, SELFPAY ==
[2025-01-27 11:36] VITALS: BP 152/72; PULSE 89; TEMP 36.8; O2SAT 93
[2025-01-27 12:06] VITALS: PULSE 104; O2SAT 93
[2025-01-27 12:07] VITALS: BP 175/74; PULSE 99; O2SAT 93
[2025-01-27 12:08] VITALS: BP 180/78
[2025-01-27] MEDS: BUPIVACAINE HCL 0.25% PF 25 MG/10 ML VIAL 2 ML INJ (12:08)
[2025-01-27] MEDS: METHYLPREDNISOLONE ACETATE 40 MG/ML VIAL INJ (12:09)
[2025-01-27] MEDS: IOHEXOL 240 MG/ML - 10 ML VIAL 12 MG INJ (12:09)
[2025-01-27] MEDS: LIDOCAINE HCL 2% 400 MG/20 ML MDV INJ (12:09)
--- NOTE | 2025-01-27 12:10 | W.PM.PROCNOT ---
Date of procedure: 01/27/25 Pre-op diagnosis: Pain due to right sacroiliitis Post-op diagnosis: same as pre-op Procedure: Procedure: Right sacroiliac joint injection Medications: Bupivacaine 0.25% 2cc, depomedrol 40mg After informed consent was obtained, the patient was brought to the medical procedure unit and placed in the prone position, when a timeout was completed verifying correct patient, procedure, site, positioning, implant, and/or special equipment.? The skin overlying the area was prepped and draped in standard sterile fashion using alcohol.? A 25-gauge needle was inserted towards the right sacroiliac joint under direct fluoroscopic imaging.? Needle tip was advanced until the joint was encountered.? We instilled a total of 2 mL of solution.? Postoperatively needles were removed.? The patient tolerated the procedure well without complication.? The patient reported reduction in pain symptoms postoperatively. Anesthesia: Local Surgeon: Jadyn Wyman Pathology: none sent Condition: stable Disposition: no change
== END 2025-01-27 12:15 | disposition home or self-care (01) ==
LOC: SURGOUT 11:28
PROVIDERS: PCP Internal Medicine; Visit Provider Anesthesiology
DX: M46.1 Sacroiliitis, not elsewhere classified (principal)
CPT/HCPCS: 27096; J0665; J1010; Q9966

== ENCOUNTER 2025-02-12 14:12 | Outpatient (OUT) | payer MEDICARE, SELFPAY ==
--- OUTSIDE RECORDS SUMMARY | 2024-06-04 04:30 | XMS_ITS ---
Author Organization [facility] in [place] Address [address] [place] [address] Care Team Providers Care Auricular Acupuncturist Name Role Phone Patrick BRIDGES, Beni Primary Care Provider Unavailab Ivan Engle [phone] REASON FOR VISIT Cysto Encounters Encounter Location Date Provider Diagnosis [facility] [address] [address] 06/04/2024 Ivan Barnhart Plan Of Treatment No Information Progress Notes * Ankur REILLY ADOB: [birth year] (79 yo M)Acc No.[id number]:06/04/2024 UNLOCKED PROGRESS NOTE 0 Patient: Ankur PRESLEY Provider: Yakelin Barnhart MD :1945 A ge:78 Y S ex:Male Date:06/04/2024 Address:[address], [id number] Pcp:Beni Nguyen MD Subjective: * Chief Complaints: * 1 . Cysto. * Medical History: Objective: * Vitals: Assessment: Plan: * Treatment: * * Electronic signature of Steven Barnhart MD, [id number] on 02/12/2025 at 02:15 PM EDT Sign off status: Pending Visit Status: R /S (Rescheduled) * Provider: Yakelin Barnhart MD Date: 1 Generated for Printi ng/Faxing/eTransmitting on: 0 02/12/2025 02:15 PM EDT
--- OUTSIDE RECORDS SUMMARY | 2024-07-30 07:30 | XMS_ITS ---
Author Organization [facility] in [place] Address [address] [place] [address] Care Team Providers Care Strategic Partnership Manager Name Role Phone Patrick BRIDGES, Beni Primary Care Provider Unavailab Ivan Engle [phone] REASON FOR VISIT Cysto Encounters Encounter Location Date Provider Diagnosis Urology [facility] [address] [address] 07/30/2024 Ivan Barnhart Plan Of Treatment No Information Progress Notes * Ankur REILLY ADOB: [birth year] (79 yo M)Acc No.[id number]:07/30/2024 UNLOCKED PROGRESS NOTE 0 Patient: Ankur PRESLEY Provider: Yakelin Barnhart MD :1945 A ge:78 Y S ex:Male Date:07/30/2024 Address:[address], [id number] Pcp:Beni Nguyen MD Subjective: * Chief Complaints: * 1 . Cysto. * Medical History: Objective: * Vitals: Assessment: Plan: * Treatment: * * Electronic signature of Steven Barnhart MD, [id number] on 02/12/2025 at 02:15 PM EDT Sign off status: Pending Visit Status: C ANC (Cancelled) * Provider: Yakelin Barnhart MD Date: 1 09/30/2023 Generated for Printi ng/Faxing/eTransmitting on: 0 02/12/2025 02:15 PM EDT
--- OUTSIDE RECORDS SUMMARY | 2025-01-30 15:10 | XMS_ITS | Encounter Summary ---
Author Organization [facility] Address [address] [place] [address] Care Team Providers Care Director Digital Advertising Name Role Phone Beni Nguyen MD Primary Care Provider [phone] Beni Nguyen MD Unavailable [phone] Anastasia Rayo LPN Unavailable Reason for Visit * Reason Comments Toenail Care Non dm nail care Encounter Details Date Type Department Care Team (Latest Contact Info) Description 01/30/2025 3:10 PM EDT Procedure Visit [facility] 112 [facility] [address] [place] [address] Real Og, DPMarcial 3006 [facility] 5 [place] [address] 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cosis of toenails of both feet (Primary Dx); Venous insufficiency Social History Tobacco Use Types [...] How often do you attend chur or congregational services? Never 03/17/2023 Do you belong to [...] Recorded Patient Health Questionnaire-2 Score 0 12/05/2024 [facility] - Occupational Stress [...] - Temperature - - Respiratory Rate 18 01/30/2025 3:04 PM EDT Oxygen Saturation - - Inhaled Oxygen Concentration - - Weight 137 kg (302 lb) 01/30/2025 3:04 PM EDT Height 172.7 cm (5' 8 ) 01/30/2025 3:04 PM EDT Body Mass Index 45.92 01/30/2025 3:04 PM EDT documented in this encounter Progress Notes * Real Og DPM - 01/30/2025 3:10 PM EDT Patient: Ankur Reilly : 1945 PCP: Beni Nguyen MD SUBJECTIVE This is a 79 y.o. male that presents today with a [...] Diagnosis Date Acute respiratory failure with hypoxia ([facility]) 11/17/2023 Acute respiratory insufficiency 12/15/2018 d/t Pulmonary Emboli MATT (acute kidney injury) ([facility]) 09/17/2024 Allergic rhinitis due to other allergen Autoimmune disorder ([facility]) Bilateral pulmonary embolism ([facility]) 2019 Acute Hypoxic Resp. 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 Cervical radiculopathy at C8 05/2017 CTS (carpal tunnel syndrome) 05/2017 Bilateral Essential hypertension, benign ([facility]) Facial droop Head injury with fracture of skull ([facility]) 09/17/2024 History of being hospitalized 06/19/2024 Myasthenia Gravis Exacerbation, Weakness, Dyspnea History of being hospitalized 07/09/2024 Generalized Weakness, MATT History of being hospitalized 07/28/2024 Syncope, Head injury, Generalized weakness, Hypomagnesemia History of being hospitalized 09/11/2024 Myasthenia Gravis Crisis History of echocardiogram 12/15/2018 EF 60-65%, LVH Hypertension ([facility]) Impaired glucose tolerance test Oral Lumbosacral spondylosis without myelopathy LVH (left ventricular hypertrophy) 12/15/2018 ECHO EF 60-65% Macular edema 2008 /pucker Muscle cramp Myasthenia gravis 12/27/2017 / dyspnea Myasthenic crisis ([facility]) 05/10/2023 Obesity Obstructive sleep apnea (adult) (pediatric) Pulmonary emboli 11/17/2023 Pulmonary embolism 11/2018 Pure hypercholesterolemia ([facility]) Shortness of breath Superficial thrombophlebitis 12/16/2018 Rt Thigh Syncope 09/17/2024 Tremor Troponin I above reference range 11/17/2023 Urothelial carcinoma ([facility]) 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 UTI, [...] and 500 mg before bedtime.,Disp: , Rfl: furosemide (Lasix) 20 MG tablet, Take 1-2 [...] MG tablet, Take 10 mg by mouth Daily, Disp: , Rfl: Multiple Vitamins-Minerals (GNP ONE DAILY MENS 50+ADVANCED PO), , Disp: , Rfl: nystatin (Mycostatin) 691628 UNIT/GM powder, , Disp: , Rfl: omega-3 (Fish Oil) 1000 MG capsule, Take 2 capsules by mouth Daily, Disp: , Rfl: oxyCODONE-acetaminophen (Percocet) 5-325 MG [...] THE EVENING, Disp: 90 tablet, Rfl: 3 Social History: Social History Socioeconomic History Marital status: Spouse name: Not on file Number of children: Not on file Years of education: Not on file Highest education level: Not on file Occupational History Not on file Tobacco Use Smoking status: Never Smokeless tobacco: Never Vaping Use Vaping status: Never Used Substance and Sexual Activity Alcohol use: Yes Drug use: Defer Sexual activity: Not Currently Other Topics Concern Not on file Social [...] min Stress: No Stress Concern Present (03/17/2023) [facility] - Occupational Stress Questionnaire Feeling of Stress : Only a little Social Connections: Moderately Isolated (03/17/2023) Social Connection and Isolation Panel [NHANES] Frequency of Communication with Friends and Family: More than three times a week Frequency of Social Gatherings with Friends and Family: Once a week Attends Taoist Services: Never Active Member of Clubs or [...] feet ORTHO: Positive pain on palpation to toenails of the left 1,2,3,4,5 toes and right 1,2,3,4,5 toes ASSESSMENT 1. 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cosis of toenails of both feet 2. Venous insufficiency PLAN Discussed proper foot care with patient today. Debride nails in length and thickness digits 1 through 10 Visit spent with patient education on condition and treatment of condition. Real Og DPM documented in this encounter Plan of Treatment Upcoming Encounters Date Type Department Care Team (Late st Contact Info) Description 04/10/2025 3:10 PM EDT Procedure Visit [facility] 112 [facility] 120 [place] [phone] Real Og DPM 3006 [facility] 5 [place] [address] documented as of this encounter Visit Diagnoses Diagnosis 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cosis of toenails of both feet- Primary Venous insufficiency Unspecified venous (peripheral) insufficiency documented in this encounter Care Teams Director Digital Advertising Relationship Specialty Start Date End Date Beni Nguyen MD 112 [facility] [address] [place] [address] PCP - General Internal Medicine 01/02/23 Beni Nguyen MD [address] [place] 110 [place] [address] PCP - ACO Reach 01/12/23 Anastasia Rayo LPN [address] [facility] [address] [place] [address] 11/08/24 documented as of this encounter
--- OUTSIDE RECORDS SUMMARY | 2025-02-12 14:15 | XMS_ITS | Encounter Summary ---
Author Organization [facility] Address [address] [place] [address] Phone Care Team Providers Care Taker Away Name Role Phone Beni Nguyen MD Primary Care Provider [phone] Encounter Details Date Type Department Care Team (Late st Contact Info) Description 08/18/2021 Orders Only [facility] [address] [place] [address] Conversion, Onbase Social History Tobacco Use Types [...] Office Visit [facility] 703 [facility] [address] [place] [address] Juan C Hoover, DO [address] [place] [address] Scheduled Orders Name Type Priority Associated Diagnoses Orde r Schedule OUTSIDE LAB SCAN Lab Ordered: 08/18/2021 documented as of this encounter Visit Diagnoses Not on filedocumented in this encounter Care Teams Taker Away Relationship Specialty Start Date End Date Beni Nguyen MD [address] [place] [address] PCP - General 05/18/23 documented as of this encounter
--- OUTSIDE RECORDS SUMMARY | 2025-02-12 14:15 | XMS_ITS | Encounter Summary ---
Author Organization [facility] Address [address] [place] [address] Care Team Providers Care Staff Combat Information Center Officer Name Role Phone Beni Nguyen MD Primary Care Provider [phone] Beni Nguyen MD Unavailable [phone] Anastasia Rayo LPN Unavailable Encounter Details Date Type Department Care Team (Late st Contact Info) Description 12/11/2024 Abstract [facility] [address] [facility] 110 [place] [address] Beni Nguyen MD 112 [facility] 110 [place] [address] Social History Tobacco Use Types Packs/Day Years [...] Recorded Patient Health Questionnaire-2 Score 0 12/05/2024 [facility] - Occupational [...] money to buy more. Never true 03/17/20 Within the past 12 months, t he [...] Upcoming Encounters Date Type Department Care Team ([facility] Contact Info) Description 04/10/2025 3:10 PM EDT Procedure Visit [facility] [address] [facility] 120 [place] [address] Real Og DPM 3006 [facility] 5 [place] [address] documented as of this encounter Visit Diagnoses Not on filedocumented in this encounter Care Teams Staff Combat Information Center Officer Relationship Specialty Start Date End Date Beni Nguyen MD [address] [facility] [address] [place] [address] PCP - General Internal Medicine 01/02/23 Beni Nguyen MD [address] [facility] 110 [place] [address] PCP - ACO Reach 01/12/23 Anastasia Rayo LPN 112 [facility] 110 [place] [address] 11/08/24 documented as of this encounter
--- OUTSIDE RECORDS SUMMARY | 2025-02-12 14:15 | XMS_ITS | Encounter Summary ---
Author Organization [facility] Address [address] [place] [address] Care Team Providers Care Archives Director Name Role Phone Beni Nguyen MD Primary Care Provider [phone] Beni Nguyen MD Unavailable [phone] Anastasia Rayo LPN Unavailable Encounter Details Date Type Department Care Team (Late st Contact Info) Description 12/18/2024 Abstract [facility] [address] [facility] [address] [place] [address] Beni Nguyen MD 112 [facility] 110 [place] [address] Social History Tobacco Use Types Packs/Day Years [...] any clubs o r organizations such as congregation groups, unions, fraternal or athletic groups, or [...] Recorded Patient Health Questionnaire-2 Score 0 12/05/2024 [facility] Occupat ional Health - [...] Upcoming Encounters Date Type Department Care Team ([facility] Contact Info) Description 04/10/2025 3:10 PM EDT Procedure Visit [facility] [address] [facility] 120 [place] [address] Real Og DPM 3006 [facility] 5 [place] [address] documented as of this encounter Visit Diagnoses Not on filedocumented in this encounter Care Teams Archives Director Relationship Specialty Start Date End Date Beni Nguyen MD [address] [facility] 110 [place] [address] PCP - General Internal Medicine 01/02/23 Beni Nguyen MD [address] [facility] 110 [place] [address] PCP - ACO Reach 01/12/23 Anastasia Rayo LPN 112 [facility] 110 [place] [address] 11/08/24 documented as of this encounter
--- OUTSIDE RECORDS SUMMARY | 2025-02-12 14:15 | XMS_ITS | Encounter Summary ---
Author Organization [facility] Address [address] [place] [address] Phone Care Team Providers Care Vehicle Service Agent Name Role Phone Beni Nguyen MD Primary Care Provider [phone] Encounter Details Date Type Department Care Team (Late st Contact Info) Description 08/10/2022 Orders Only [facility] [address] [place] [address] Conversion, Onbase Social History Tobacco Use Types [...] Description 09/25/2025 2:10 PM EST Office Visit [facility] 703 [facility] [address] [place] [address] Juan C Hoover, DO [address] [place] [address] Scheduled Orders Name Type Priority Associated Diagnoses Orde r Schedule OUTSIDE LAB SCAN Lab Ordered: 08/10/2022 documented as of this encounter Visit Diagnoses Not on filedocumented in this encounter Care Teams Vehicle Service Agent Relationship Specialty Start Date End Date Beni Nguyen MD [address] [place] [address] PCP - General 05/18/23 documented as of this encounter
--- OUTSIDE RECORDS SUMMARY | 2025-02-12 14:16 | XMS_ITS | Encounter Summary ---
Author Organization [facility] Address [address] [place] [address] Care Team Providers Care Disease Case Manager Name Role Phone Beni Nguyen MD Primary Care Provider [phone] Beni Nguyen MD Unavailable [phone] Anastasia Rayo LPN Unavailable Encounter Details Date Type Department Care Team (Late st Contact Info) Description 12/31/2024 Abstract [facility] 112 [facility] [facility] 110 [place] [address] Beni Nguyen MD 112 [facility] 110 [place] [address] Social History Tobacco Use Types Packs/Day Years [...] Recorded Patient Health Questionnaire-2 Score 0 12/05/2024 [facility] Occupat ional Health - Occupational Stress [...] Upcoming Encounters Date Type Department Care Team ([facility] Contact Info) Description 04/10/2025 3:10 PM EDT Procedure Visit [facility] [address] [facility] 120 [place] [address] Real Og DPM 3006 [facility] 5 [place] [address] documented as of this encounter Visit Diagnoses Not on filedocumented in this encounter Care Teams Disease Case Manager Relationship Specialty Start Date End Date Beni Nguyen MD [address] [facility] 110 [place] [address] PCP - General Internal Medicine 01/02/23 Beni Nguyen MD [address] [facility] 110 [place] [address] PCP - ACO Reach 01/12/23 Anastasia Rayo LPN 112 [facility] 110 [place] [address] 11/08/24 documented as of this encounter
--- OUTSIDE RECORDS SUMMARY | 2025-02-12 14:16 | XMS_ITS | Encounter Summary ---
Author Organization [facility] Address [address] [facility] [place] [address] Care Team Providers Care Butcher Scullion Name Role Phone Beni Nguyen MD Primary Care Provider [phone] Beni Nguyen MD Unavailable [phone] Esther Connolly RN Unavailable Anastasia Rayo LPN Unavailable Encounter Details Date Type Department Care Team (Late st Contact Info) Description 10/31/2024 Abstract [facility] 112 [facility] 110 [place] [address] Beni Nguyen MD 112 [facility] 110 [place], [place] [id number] Social History Tobacco Use Types Packs/Day Years [...] Recorded Patient Health Questionnaire-2 Score 0 10/29/2024 [facility] of Occupat ional Health [...] Upcoming Encounters Date Type Department Care Team ([facility] Contact Info) Description 04/10/2025 3:10 PM EDT Procedure Visit [facility] [address] [facility] 120 [place] [address] Real Og DPM 3006 [facility] 5 [place] [address] documented as of this encounter Visit Diagnoses Not on filedocumented in this encounter Care Teams Butcher Scullion Relationship Specialty Start Date End Date Beni Nguyen MD [address] [facility] 110 [place] [address] PCP - General Internal Medicine 01/02/23 Beni Nguyen MD [address] [facility] 110 [place] [address] PCP - ACO Reach 01/12/23 Esther Connolly, RN [address] [place] [address] [facility] 09/27/24 11/08/24 Anastasia Rayo LPN [address] [facility] 110 [place] [address] 11/08/24 documented as of this encounter
--- OUTSIDE RECORDS SUMMARY | 2025-02-12 14:16 | XMS_ITS | Encounter Summary ---
Author Organization [facility] Address [address] [place] [address] Phone Care Team Providers Care Director Of Social Media Marketing Name Role Phone Beni Nguyen MD Primary Care Provider [phone] Encounter Details Date Type Department Care Team (Late st Contact Info) Description 07/28/2024 Scanned Document [facility] [address] [place] [address] Scanning, Generic Provider Social History Tobacco Use [...] Description 09/25/2025 2:10 PM EST Office Visit [place] [address] [facility] 250 [place] [address] Juan C Hoover, 703 [facility], [address] [place] [address] Scheduled Orders Name Type Priority Associated Diagnoses Orde r Schedule Ultrasound- OnBase Scan Imaging O rdered: 07/28/2024 documented as of this encounter Visit Diagnoses Not on filedocumented in this encounter Additional Health Concerns Assessment Noted Time A fall risk assessment has been complete d for the patient 09/20/2023 12:14 PM EST documented as of this encounter Care Teams Director Of Social Media Marketing Relationship Specialty Start Date End Date Beni Nguyen MD 112 [facility] 110 [place] [address] PCP - General 05/18/23 documented as of this encounter
--- OUTSIDE RECORDS SUMMARY | 2025-02-12 14:16 | XMS_ITS | Encounter Summary ---
Author Organization [facility] Address [address] [place] [address] Care Team Providers Care Study Coordinator Name Role Phone Beni Nguyen MD Primary Care Provider [phone] Beni Nguyen MD Unavailable [phone] Esther Connolly RN Unavailable [phone] Anastasia Rayo LPN Unavailable Encounter Details Date [...] Upcoming Encounters Date Type Department Care Team ([facility] st Contact Info) Description 04/10/2025 3:10 PM EDT Procedure Visit [facility] 112 [facility] 120 [place] [address] Real Og DPM 3006 [facility] 5 [place] [address] documented as of this encounter Procedures Procedure Name Priority Date/Time Associated Diagnosis Comments MR LUMBAR SPINE WO CON 12/22/2023 2:22 PM EDT documented in this encounter Results * MR LUMBAR SPINE WO CON (12/22/2023 2:22 PM EDT) Anatomical Region Laterality Modality Other 12/22/2023 2:22 PM EDT Narrative 12/22/2023 2:25 PM EDT The [address] [address] Magnetic Resonance Report Signed Patient: ANKUR REILLY MR#: [id number] : 1945 Acct:[id number] Age/Sex: 78 / M ADM Date: 12/22/23 Loc: RAD Attending Dr: Jadyn Wyman M.D. Ordering Physician: Jadyn Wyman M.D. Date of Service: 12/22/23 Procedure(s): MR lumbar spine wo con Accession Number(s): [id number] cc: BENI NGUYEN ; Jadyn Wyman M.D. [place] [address] Patient Name: ANKUR REILLY MRN: [facility]:[id number] date: 1945 Sex: M Assigned Patient Location: RAD Current Patient Location: RAD Accession/Order Number: [id number] Exam Date: 12/22/2023 12:40 Report Date: 12/22/2023 [...] levels as detailed above Electronically authenticated by: MIKO RUTLEDGE Date: 12/22/2023 14:22 Dictated By: Miko Rutledge M.D. Signed By: 12/22/23 1425 DD/ 142 TD/TT: Meeting/Event Planner: Procedure Note Radiology, Radiologist, MD - 12/22/2023 [place] [address] Magnetic Resonance Report Signed Patient: ANKUR REILLY [facility]#: [id number] : 1945cct:[id number] Age/Sex: 78 / MADM Date: 12/22/23 Loc: RAD Attending Dr: Jadyn Wyman M.D. Ordering Physician: Jadyn Wyman M.D. Date of Service: 12/22/23 Procedure(s): MR lumbar spine wo con Accession Number(s): [id number] cc: BENI NGUYEN ; Jadyn Wyman M.D. The [place] [id number] Patient Name: ANKUR REILLY MRN: [id number] date: 1945 Sex: M Assigned Patient Location: RAD Current Patient Location: RAD Accession/Order Number: [id number] Exam Date: 12/22/2023 12:40 Report Date: 12/22/2023 [...] levels as detailed above Electronically authenticated by: MIKO RUTLEDGE Date: 12/22/2023 14:22 Dictated By: Miko Rutledge M.D. Signed By:12/22/23 1425 DD/ 142 TD/TT: Meeting/Event Planner: us Generic External Data Provider [facility] Final Result documented in this encounter Visit Diagnoses Not on filedocumented in this encounter Care Teams Study Coordinator Relationship Specialty Start Date End Date Beni Nguyen MD [address] [place] [address] [address] PCP - General Internal Medicine 01/02/23 Beni Nguyen MD [address] [address] PCP - ACO Reach 01/12/23 Esther Connolly, HEATHER [address] [place] [place] [address] [facility] 09/27/24 11/08/24 Anastasia Rayo LPN [address] [address] 11/08/24 documented as of this encounter
--- OUTSIDE RECORDS SUMMARY | 2025-02-12 14:16 | XMS_ITS | Encounter Summary ---
Author Organization [facility] Address [address] [place] [address] Care Team Providers Care Gas Systems Worker Name Role Phone Beni Nguyen MD Primary Care Provider [phone] Beni Nguyen MD Unavailable [phone] Esther Connolly RN Unavailable Anastasia Rayo LPN Unavailable Encounter Details Date Type Department Care Team (Late st Contact Info) Description 05/11/2023 Orders Only [facility] [address] [place] [address] A, Unknown Practice [address] [place] [phone] Social History Tobacco Use Types Packs/Day Years [...] often do you attend chur ch or scientology services? Never 03/17/2023 Do you [...] and heating? Not hard at all 03/17/2023 [facility] of Occupat ional Health - Occupational [...] ([facility] st Contact Info) Description 04/10/2025 3:10 PM EDT Procedure Visit [facility] 112 [facility] 120 [place] [address] Real Og DPM 3006 [facility] 5 [place] [address] documented as of this encounter Procedures Procedure [...] on filedocumented in this encounter Care Teams Gas Systems Worker Relationship Specialty Start Date End Date Beni Nguyen MD 112 [facility] [address] [place], [place] [address] PCP - General Internal Medicine 01/02/23 Beni Nguyen MD [address] [facility] 110 [place] [address] PCP - ACO Reach 01/12/23 Esther Connolly, RN [address] [place], [place] [address] [facility] 09/27/24 11/08/24 Anastasia Rayo LPN [address] [facility] 110 [place] [address] 11/08/24 documented as of this encounter
--- OUTSIDE RECORDS SUMMARY | 2025-02-12 14:16 | XMS_ITS | Encounter Summary ---
Author Organization [facility] Address [address] [place] [address] Care Team Providers Care Entrepreneurship Program Director Name Role Phone Beni Nguyen MD Primary Care Provider [phone] Beni Nguyen MD Unavailable [phone] Esther Connolly RN Unavailable [phone] Anastasia Rayo LPN Unavailable Encounter Details Date Type Department Care Team (Late st Contact Info) Description 05/11/2023 Abstract [facility] 112 [address] [facility] 110 [place] [address] Beni Nguyen MD 112 [facility] 110 [place], [place] [address] Social History Tobacco Use Types Packs/Day Years [...] often do you attend chur ch or spiritism services? Never 03/17/2023 Do you belong to [...] Procedure Visit [facility] PODIATRY 112 [facility] 120 [place] [address] Real Og, DPM 3006 [facility] 5 [place] [address] documented as of this encounter Visit Diagnoses Not on filedocumented in this encounter Care Teams Entrepreneurship Program Director Relationship Specialty Start Date End Date Beni Nguyen MD [address] [facility] 110 [place] [address] PCP - General Internal Medicine 01/02/23 Beni Nguyen MD [address] [facility] 110 [place] [address] PCP - ACO Reach 01/12/23 Esther Connolly, HEATHER [address] [place] [address] Clinical Advocate Family Medicine 09/27/24 11/08/24 Anastasia Rayo LPN 112 [place] [address] 11/08/24 documented as of this encounter
--- OUTSIDE RECORDS SUMMARY | 2025-02-12 14:16 | XMS_ITS | Encounter Summary ---
Author Organization [facility] Address [address] [place] [address] Care Team Providers Care Victim Advocate Name Role Phone Beni Nguyen MD Primary Care Provider [phone] Beni Nguyen MD Unavailable [phone] Esther Connolly RN Unavailable [phone] Anastasia Rayo LPN Unavailable Encounter Details Date Type Department Care Team (Late st Contact Info) Description 05/23/2023 Abstract [facility] 112 [address] [facility] 110 [place] [address] Beni Nguyen MD 112 [facility] 110 [place], [place] [address] Social History Tobacco Use Types Packs/Day Years [...] often do you attend chur ch or jain services? Never 03/17/2023 Do you belong to [...] heating? Not hard at all 03/17/2023 [facility] [...] CI PODIATRY 112 [facility] 120 [place] [address] Real Og, DPM 3006 [facility] 5 [place] [address] documented as of this encounter Visit Diagnoses Not on filedocumented in this encounter Care Teams Victim Advocate Relationship Specialty Start Date End Date Beni Nguyen MD [address] [facility] 110 [place] [address] PCP - General Internal Medicine 01/02/23 Beni Nguyen MD 112 [facility] 110 [place] [address] PCP - ACO Reach 01/12/23 Esther Connolly, HEATHER [address] [place] [address] Clinical Advocate Family Medicine 09/27/24 11/08/24 Anastasia Rayo LPN 112 [place] [address] 11/08/24 documented as of this encounter
--- OUTSIDE RECORDS SUMMARY | 2025-02-12 14:16 | XMS_ITS | Encounter Summary ---
Author Organization [facility] Address [address] [place] [address] Phone Care Team Providers Care Plastics Worker Name Role Phone Beni Nguyen MD Primary Care Provider [phone] Encounter Details Date Type Department Care Team (Late st Contact Info) Description 09/13/2024 Scanned Document [facility] [address] [place] [address] Scanning, Generic Provider Social History Tobacco Use [...] Description 09/25/2025 2:10 PM EST Office Visit [place] [address] [facility] [address] [place] [address] Juan C Hoover DO 703 [facility] 2, [address] [place] [address] documented as of this encounter Visit Diagnoses Not on filedocumented in this encounter Additional Health Concerns Assessment Noted Time A fall risk assessment has been complete d for the patient 09/20/2023 12:14 PM EST documented as of this encounter Care Teams Plastics Worker Relationship Specialty Start Date End Date Beni Nguyen MD [address] [place] [address] PCP - General 05/18/23 documented as of this encounter
--- OUTSIDE RECORDS SUMMARY | 2025-02-12 14:16 | XMS_ITS | Encounter Summary ---
Author Organization [facility] Address [address] [place] [address] Phone Care Team Providers Care Busgirl Name Role Phone Beni Nguyen MD Primary Care Provider [phone] Encounter Details Date Type Department Care Team (Late st Contact Info) Description 06/10/2023 Scanned Document [facility] [address] [place] [address] Scanning, Generic Provider Social History Tobacco Use [...] Description 09/25/2025 2:10 PM EST Office Visit [facility] 703 [facility] [address] [place] [address] Juan C Hoover, 703 [facility] 2, [address] [place], [place] [address] documented as of this encounter Visit Diagnoses Not on filedocumented in this encounter Care Teams Busgirl Relationship Specialty Start Date End Date Beni Nguyen MD [address] [facility] 110 [place] [address] PCP - General 05/18/23 documented as of this encounter
--- OUTSIDE RECORDS SUMMARY | 2025-02-12 14:16 | XMS_ITS | Clinical Summary ---
Author Organization [employer] Address [id number] [address] [place] [address] Care Team Providers Care Larriman Name Role Phone Beni Nguyen MD Primary Care Provider [phone] Allergies No known active allergies Medications omega-3 [...] Medical Devices Not on file Insurance MEDICARE [facility] Care Teams Larriman Relationship Specialty Start Date End Date Beni Nguyen MD 112 [facility] 110 [place] [address] PCP - General Internal Medicine 10/02/19
--- OUTSIDE RECORDS SUMMARY | 2025-02-12 14:16 | XMS_ITS ---
Author Organization [facility] Address [address] [place] [address] Care Team Providers Care Securities Vault Supervisor Name Role Phone Beni Nguyen MD Primary Care Provider [phone] Beni Nguyen MD Unavailable [phone] Anastasia Rayo LPN Unavailable Chronic Care Management (CCM) Status:Enrolled (Active) Start date:01/05/2023 Enrollment date:01/05/2023 Overview 06/21/23, 9:37 AM - Salma Monday, ALETHA- Patient gives verbal consent to be enrolled in CCM Program and understands there could be a bill for this service. Case Team Name Relationship Phone Anastasia Rayo LPN(Responsible Staff) [phone] Continued Care and Services Coordination
--- OUTSIDE RECORDS SUMMARY | 2025-02-12 14:16 | XMS_ITS | Encounter Summary ---
Author Organization [facility] Address [address] [place] [address] Care Team Providers Care Supervisor Sewing Department Name Role Phone Beni Nguyen MD Primary Care Provider [phone] Beni Nguyen MD Unavailable [phone] Esther Connolly RN Unavailable Anastasia Rayo LPN Unavailable Encounter Details Date Type Department Care Team (Late st Contact Info) Description 05/11/2023 Abstract [facility] FM 112 [address] [facility] 110 [place] [address] Beni Nguyen MD 112 [facility] 110 [place], [place] [address] Social History Tobacco Use Types Packs/Day Years [...] often do you attend chur ch or gnosticism services? Never 03/17/2023 Do you belong to [...] and heating? Not hard at all 03/17/2023 [facility] [...] place to sleep or slept in a group home (including now)? No 03/17/2023 Sex and [...] [facility] 120 [place] [address] Real Og, DPM 3006 [facility] 5 [place] [address] documented as of this encounter Visit Diagnoses Not on filedocumented in this encounter Care Teams Supervisor Sewing Department Relationship Specialty Start Date End Date Beni Nguyen MD [address] [facility] 110 [place] [address] PCP - General Internal Medicine 01/02/23 Beni Nguyen MD 112 [place] [facility] 110 [place] [address] PCP - ACO Reach 01/12/23 Esther Connolly, HEATHER [address] [place] [address] Clinical Advocate Family Medicine 09/27/24 11/08/24 Anastasia Rayo LPN 112 [place] [address] 11/08/24 documented as of this encounter
--- OUTSIDE RECORDS SUMMARY | 2025-02-12 14:16 | XMS_ITS | Encounter Summary ---
Author Organization [facility] Address [address] [place] [address] Care Team Providers Care Agile Coach Name Role Phone Beni Nguyen MD Primary Care Provider [phone] Beni Nguyen MD Unavailable [phone] Esther Connolly RN Unavailable Anastasia Rayo LPN Unavailable Encounter Details Date Type Department Care Team (Late st Contact Info) Description 05/11/2023 Abstract [facility] 112 [address] [facility] 110 [place] [address] Beni Nguyen MD 112 [facility] 110 [place], [place] [address] Social History Tobacco Use Types Packs/Day Years [...] any clubs o r organizations such as moravian groups, unions, fraternal or athletic groups, or [...] CI PODIATRY 112 [facility] 120 [place] [address] Real Og, DPM 3006 [facility] 5 [place] [address] documented as of this encounter Visit Diagnoses Not on filedocumented in this encounter Care Teams Agile Coach Relationship Specialty Start Date End Date Beni Nguyen MD [address] [facility] 110 [place] [address] PCP - General Internal Medicine 01/02/23 Beni Nguyen MD [address] [facility] 110 [place] [address] PCP - ACO Reach 01/12/23 Esther Connolly, HEATHER [address] [place] [address] Clinical Advocate Family Medicine 09/27/24 11/08/24 Anastasia Rayo LPN 112 [place] [address] 11/08/24 documented as of this encounter
--- OUTSIDE RECORDS SUMMARY | 2025-02-12 14:16 | XMS_ITS | Encounter Summary ---
Author Organization [facility] Address [address] [place] [address] Care Team Providers Care Furniture Cleaner Name Role Phone Beni Nguyen MD Primary Care Provider [phone] Beni Nguyen MD Unavailable [phone] Esther Connolly RN Unavailable Anastasia Rayo LPN Unavailable Encounter Details Date Type Department Care Team (Late st Contact Info) Description 05/11/2023 Abstract [facility] [address] [facility] 110 [place] [address] Beni Nguyen MD 112 [facility] 110 [place], [place] [address] Social History Tobacco Use Types Packs/Day Years [...] and heating? Not hard at all 03/17/2023 [facility] - [...] PODIATRY 112 [facility] 120 [place] [address] Real Og, DPM 3006 [facility] 5 [place] [address] documented as of this encounter Visit Diagnoses Not on filedocumented in this encounter Care Teams Furniture Cleaner Relationship Specialty Start Date End Date Beni Nguyen MD [address] [facility] 110 [place] [address] PCP - General Internal Medicine 01/02/23 Beni Nguyen MD 112 [place] [facility] 110 [place] [address] PCP - ACO Reach 01/12/23 Esther Connolly, HEATHER [address] [place] [address] Clinical Advocate Family Medicine 09/27/24 11/08/24 Anastasia Rayo LPN 112 [place] [address] 11/08/24 documented as of this encounter
--- OUTSIDE RECORDS SUMMARY | 2025-02-12 14:16 | XMS_ITS | Encounter Summary ---
Author Organization [facility] Address [address] [place] [address] Care Team Providers Care Injection Molding Supervisor Name Role Phone Beni Nguyen MD Primary Care Provider [phone] Beni Nguyen MD Unavailable [phone] Esther Connolly RN Unavailable Anastasia Rayo LPN Unavailable Encounter Details Date Type Department Care Team (Late st Contact Info) Description 05/17/2023 Abstract [facility] FM 112 [address] [facility] 110 [place] [address] Beni Nguyen MD 112 [facility] 110 [place], [place] [address] Social History Tobacco Use Types Packs/Day Years [...] often do you attend chur ch or jainism services? Never 03/17/2023 Do you belong to [...] and heating? Not hard at all 03/17/2023 [facility] [...] PODIATRY 112 [facility] 120 [place] [address] Real Og, DPM 3006 [facility] 5 [place] [address] documented as of this encounter Visit Diagnoses Not on filedocumented in this encounter Care Teams Injection Molding Supervisor Relationship Specialty Start Date End Date Beni Nguyen MD [address] [facility] 110 [place] [address] PCP - General Internal Medicine 01/02/23 Beni Nguyen MD 112 [place] 110 [place] [address] PCP - ACO Reach 01/12/23 Esther Connolly, HEATHER [address] [place] [address] Clinical Advocate Family Medicine 09/27/24 11/08/24 Anastasia Rayo LPN 112 [place] [address] 11/08/24 documented as of this encounter
--- OUTSIDE RECORDS SUMMARY | 2025-02-12 14:16 | XMS_ITS | Encounter Summary ---
Author Organization [facility] Address [address] [place] [address] Phone Care Team Providers Care Employment Programs Analyst Name Role Phone Beni Nguyen MD Primary Care Provider Encounter Details Date Type Department Care Team (Late st Contact Info) Description 09/11/2024 Scanned Document [facility] [address] Virtual [place] [address] Scanning, Generic Provider Social History Tobacco Use [...] Description 09/25/2025 2:10 PM EST Office Visit [facility] 703 [facility] [address] [place] [address] Juan C Hoover, 703 [facility] 2, [address] [place] [address] documented as of this encounter Procedures Procedure [...] documented as of this encounter Care Teams Employment Programs Analyst Relationship Specialty Start Date End Date Beni Nguyen MD 112 [facility] 110 [place] [address] PCP - General 05/18/23 documented as of this encounter
--- OUTSIDE RECORDS SUMMARY | 2025-02-12 14:16 | XMS_ITS | Encounter Summary ---
Author Organization [facility] Address [address] [place] [address] Care Team Providers Care Project Administrative Assistant Name Role Phone Beni Nguyen MD Primary Care Provider [phone] Beni Nguyen MD Unavailable [phone] Esther Connolly RN Unavailable [phone] Anastasia Rayo LPN Unavailable Encounter Details Date Type Department Care Team (Late st Contact Info) Description 05/11/2023 Abstract [facility] FM 112 [address] [facility] 110 [place] [address] Beni Nguyen MD [address] [facility] 110 [place], [place] [address] Social History Tobacco Use Types Packs/Day Years [...] and heating? Not hard at all 03/17/2023 [facility] - [...] EDT Procedure Visit [facility] PODIATRY 112 [facility] 120 [place] [address] Real Og, DPM 3006 [facility] 5 [place] [address] documented as of this encounter Visit Diagnoses Not on filedocumented in this encounter Care Teams Project Administrative Assistant Relationship Specialty Start Date End Date Beni Nguyen MD [address] [facility] 110 [place] [address] PCP - General Internal Medicine 01/02/23 Beni Nguyen MD [address] [facility] 110 [place] [address] PCP - ACO Reach 01/12/23 Esther Connolly, HEATHER [address] [place] [address] Clinical Advocate Family Medicine 09/27/24 11/08/24 Anastasia Rayo LPN 112 [place] [address] 11/08/24 documented as of this encounter
--- OUTSIDE RECORDS SUMMARY | 2025-02-12 14:16 | XMS_ITS | Encounter Summary ---
Author Organization [facility] Address [address] [place] [address] Care Team Providers Care Log Chipper Operator Name Role Phone Beni Nguyen MD Primary Care Provider [phone] Beni Nguyen MD Unavailable [phone] Esther Connolly RN Unavailable Anastasia Rayo LPN Unavailable Encounter Details Date Type Department Care Team (Late st Contact Info) Description 02/13/2024 Abstract [facility] FM 112 [address] [facility] 110 [place] [address] Beni Nguyen MD 112 [facility] 110 [place], [place] [address] Social History Tobacco Use Types Packs/Day Years [...] any clubs o r organizations such as anabaptism groups, unions, fraternal or athletic groups, or [...] Recorded Patient Health Questionnaire-2 Score 0 10/05/2023 [facility]ational Stress Questionnaire Answer Date [...] Visit [facility] PODIATRY [address] [facility] 120 [place] [address] Real Og DPM 3006 [facility] 5 [place] [address] documented as of this encounter Visit Diagnoses Not on filedocumented in this encounter Care Teams Log Chipper Operator Relationship Specialty Start Date End Date Beni Nguyen MD [address] [facility] 110 [place] [address] PCP - General Internal Medicine 01/02/23 Beni Nguyen MD [address] [facility] 110 [place] [address] PCP - ACO Reach 01/12/23 Esther Connolly, RN [address] [place] [address] Clinical Advocate Family Medicine 09/27/24 11/08/24 Anastasia Rayo LPN 112 [facility] 110 [place] [address] 11/08/24 documented as of this encounter
--- OUTSIDE RECORDS SUMMARY | 2025-02-12 14:16 | XMS_ITS | Clinical Summary ---
Author Organization [facility] Address [address] [place] [address] Care Team Providers Care Lead Man Over All Dies In Pattern Shop Name Role Phone Beni Nguyen MD Primary Care Provider [phone] Allergies No known active allergies Medications loratadine (CLARITIN REDITABS) 10 MG dissolvable tablet Take by mouth 02/17/2022 Active [place]-3 Fatty Acids (FISH OIL) 1200 MG CAPS [...] exists Polio vaccine Aged Out No longer domo moss based on patient's age to complete this topic Insurance MEDICARE [employer] MEDICARE SUPP Advance Directives * Full Code (Latest Code Status on File) Date Activated Date Inactivated Comments 10/15/2022 7:20 PM 10/18/2022 5:43 PM Care Teams Lead Man Over All Dies In Pattern Shop Relationship Specialty Start Date End Date Beni Nguyen MD [address] [place] [address] PCP - General Internal Medicine 10/14/22
--- OUTSIDE RECORDS SUMMARY | 2025-02-12 14:16 | XMS_ITS | Encounter Summary ---
Author Organization [facility] Address [address] [place] [address] Phone Care Team Providers Care Glost Kiln Placer Name Role Phone Beni Nguyen MD Primary Care Provider [phone] Encounter Details Date Type Department Care Team (Late st Contact Info) Description 10/14/2024 Scanned Document [facility] [address] [place] [address] Scanning, Generic Provider Social History Tobacco Use [...] Description 09/25/2025 2:10 PM EST Office Visit [facility] 703 [facility] [address] [place] [address] Juan C Hoover DO 703 [facility] 2, [address] [place] [address] documented as of this encounter [...] documented as of this encounter Care Teams Glost Kiln Placer Relationship Specialty Start Date End Date Beni Nguyen MD 112 [place] [address] PCP - General 05/18/23 documented as of this encounter
--- OUTSIDE RECORDS SUMMARY | 2025-02-12 14:16 | XMS_ITS | Encounter Summary ---
Author Organization [facility] Address [address] [place] [address] Care Team Providers Care Water Pump Operator Name Role Phone Beni Nguyen MD Primary Care Provider [phone] Beni Nguyen MD Unavailable [phone] Esther Connolly RN Unavailable Anastasia Rayo [...] often do you attend chur ch or roman catholic services? Never 03/17/2023 Do [...] Recorded Patient Health Questionnaire-2 Score 0 10/05/2023 [facility]at ional Health [...] Upcoming Encounters Date Type Department Care Team ([facility] Contact Info) Description 04/10/2025 3:10 PM EDT Procedure Visit [facility] PODIATRY 112 [facility] 120 [place] [address] Real Og DPM 3006 [facility] 5 [place] [address] documented as of this encounter Procedures Procedure Name Priority Date/Time Associated Diagnosis Comments XR SACRUM COCCYX 2+ VIEWS 12/22/2023 2:30 PM EDT documented in this encounter Results * XR sacrum coccyx 2+ views (12/22/2023 2:30 PM EDT) Anatomical Region Laterality Modality Sacrum, Coccyx Radiographic Michelle ging 12/22/2023 2:30 PM EDT Narrative 12/22/2023 2:32 PM EDT The [address] [address] XRay Report Signed Patient: ANKUR REILLY MR#: [id number] : 1945 Acct:[id number] Age/Sex: 78 / M ADM Date: 12/22/23 Loc: RAD Attending Dr: Jadyn Wyman M.D. Ordering Physician: Jadyn Wyman M.D. Date of Service: 12/22/23 Procedure(s): XR sacrum coccyx min 2V Accession Number(s): [id number] cc: BENI NGUYEN ; Jadyn Wyman M.D. The [place] [id number] Patient Name: ANKUR REILLY MRN: [id number] date: 1945 Sex: M Assigned Patient Location: RAD Current Patient Location: RAD Accession/Order Number: [id number] Exam Date: 12/22/2023 13:20 Report Date: 12/22/2023 [...] Signed By: 12/22/23 1432 DD/ 1430 TD/TT: Food And Beverage Manager: Procedure Note Radiology, Radiologist, MD - 12/22/2023 [place] [address] XRay Report Signed Patient: ANKUR REILLY [facility]#: [id number] : 1945cct:[id number] Age/Sex: 78 / MADM Date: 12/22/23 Loc: RAD Attending Dr: Jadyn Wyman M.D. Ordering Physician: Jadyn Wyman M.D. Date of Service: 12/22/23 Procedure(s): XR sacrum coccyx min 2V Accession Number(s): [id number] cc: BENI NGUYEN ; Jadyn Wyman M.D. [address] [address] Patient Name: ANKUR REILLY MRN: [id number] date: 1945 Sex: M Assigned Patient Location: RAD Current Patient Location: RAD Accession/Order Number: [id number] Exam Date: 12/22/2023 13:20 Report Date: 12/22/2023 [...] M.D. Signed By:12/22/23 1432 DD/ 1430 TD/TT: Food And Beverage Manager: Generic External Data Provider IMG XR PROCEDURES Final Result documented in this encounter Visit Diagnoses Not on filedocumented in this encounter Care Teams Water Pump Operator Relationship Specialty Start Date End Date Beni Nguyen MD [address] [facility] 110 [place] [address] PCP - General Internal Medicine 01/02/23 Beni Nguyen MD [address] [facility] 110 [place] [address] PCP - ACO Reach 01/12/23 Esther Connolly, RN [address] [place] [address] Clinical Advocate Family Medicine 09/27/24 11/08/24 Anastasia Rayo LPN [address] [address] 11/08/24 documented as of this encounter
--- OUTSIDE RECORDS SUMMARY | 2025-02-12 14:16 | XMS_ITS | Encounter Summary ---
Author Organization [facility] Address [address] [place] [address] Care Team Providers Care Supervisor Industrial Garment Name Role Phone Beni Nguyen MD Primary Care Provider [phone] Beni Nguyen MD Unavailable [phone] Esther Connolly RN Unavailable Anastasia Rayo LPN Unavailable Encounter Details Date Type Department Care Team (Late st Contact Info) Description 05/11/2023 Abstract [facility] [address] [facility] 110 [place] [address] Beni Nguyen MD 112 [facility] 110 [place], [place] [id number] Social History Tobacco Use Types Packs/Day Years [...] often do you attend chur ch or mandaeism services? Never 03/17/2023 Do you belong to any clubs o r organizations such as shinto groups, unions, fraternal or athletic groups, or [...] and heating? Not hard at all 03/17/2023 [facility] of Occupat [...] PODIATRY 112 [facility] 120 [place] [address] Real Og, DPM 3006 [facility] [place] [address] documented as of this encounter Visit Diagnoses Not on filedocumented in this encounter Care Teams Supervisor Industrial Garment Relationship Specialty Start Date End Date Beni Nguyen MD [address] [facility] 110 [place] [address] PCP - General Internal Medicine 01/02/23 Beni Nguyen MD [address] [facility] 110 [place] [address] PCP - ACO Reach 01/12/23 Esther Connolly, HEATHER [address] [place] [address] Clinical Advocate Family Medicine 09/27/24 11/08/24 Anastasia Rayo LPN 112 [place] [address] 11/08/24 documented as of this encounter
--- OUTSIDE RECORDS SUMMARY | 2025-02-12 14:16 | XMS_ITS | Encounter Summary ---
Author Organization [facility] Address [address] [place] [address] Phone Care Team Providers Care Senior Pensions Administrator Name Role Phone Beni Nguyen MD Primary Care Provider [phone] Encounter Details Date Type Department Care Team (Late st Contact Info) Description 05/16/2023 Scanned Document [facility] [address] [place] [address] Conversion, Onbase Social History Tobacco Use Types [...] 09/25/2025 2:10 PM EST Office Visit [facility] [address] [place] [address] Juan C Hoover, [address] [place] [address] documented as of this encounter Procedures Procedure Name Priority Date/Time Associated Diagnosis Comments ECHOCARDIOGRAM 05/16/2023 documented in this encounter Results * ECHOCARDIOGRAM (05/16/2023) Narrative 05/16/2023 Ordered by an unspecified provider. us Onbase Conversion CV ECHO PROCEDURES Final Resul t documented in this encounter Visit Diagnoses Not on filedocumented in this encounter Care Teams Senior Pensions Administrator Relationship Specialty Start Date End Date Beni Nguyen MD [address] [address] PCP - General 05/18/23 documented as of this encounter
--- OUTSIDE RECORDS SUMMARY | 2025-02-12 14:16 | XMS_ITS | Clinical Summary ---
Author Organization [facility] Address [address] [place] [address] Phone Care Team Providers Care Drafter Patent Name Role Phone Beni gNuyen MD Primary Care Provider [phone] Allergies Active Allergy Reactions Criticality Noted Date [...] capsule by mouth once daily. Active omega 2-qoc-hum-fish oil 360 mg-108 mg- 180 mg-1,200 mg [...] Description 01/15/2025 10:00 AM EDT Office Visit [address] 250 [place] [address] Melonie Rizvi, LABORER HEADING-DESIGN CELL ENGINEER BMI 45.0-49.9, adult (Multi) (Primary Dx); Localized edema 01/15/2025 Travel 11/18/[address] 250 [place] [address] Patti Perez LPN Results from Last 3 Months Immunizations Immunization Administration [...] Description 09/25/2025 2:10 PM EST Office Visit [facility] [address] [address] Juan C Hoover DO 703 [facility] 2, [address] [place] [address] Health Maintenance Due Date Last Done Comments Medicare Annual Wellness Visit (AWV) 1943 Skin Cancer Screening 1943 Diabetes Screening 1961 DTaP/Tdap/Td Vaccines (1 [...] age to complete this topic HPV Vaccines (No Doses Required) Completed Hepatitis A Vaccines Aged Out No long [...] Procedure Name Priority Date/Time Associated Diagnosis Comments BASIC METABOLIC PANEL Routine 11/08/2024 10:26 AM EDT Paroxysmal atrial fibrillation (Multi) High risk medication use ECHOCARDIOGRAM 05/16/2023 from Last 3 Months or Most Recently Relevant to Health Maintenance Results * (ABNORMAL) Basic Metabolic Panel (11/08/2024 10:26 AM EDT) GLUCOSE 169(H) 65 - 99 mg/dL [facility] Comment: Fasting reference interval For someone without known diabetes, a glucose value >125 mg/dL indicates that they may have diabetes and this should be confirmed with a follow-up test. UREA NITROGEN (BUN) 17 7 - 25 mg/dL [facility] CREATININE 1.03 0.70 - 1.22 mg/dL [facility] EGFR 73 > OR = 60 mL/min/1. 73m2 [facility] BUN/CREATININE RATIO SEE NOTE: 6 22 (calc) [facility] Comment: Not Reported: BUN and Creatinine are within reference range. SODIUM 142 135 - 146 mmol/L [facility] POTASSIUM 3.6 3.5 - 5.3 mmol/L [facility] CHLORIDE 101 98 - 110 mmol/L [facility] CARBON DIOXIDE 29 20 - 32 mmol/L [facility] ELECTROLYTE BALANCE 12 7 - 17 mmol/L (calc) [facility] CALCIUM 9.1 8.6 - 10.3 mg/dL [facility] Blood Venous blood specimen / Unknown 11/08/2024 10:26 AM EDT 11/08/2024 10:27 AM EDT us Melonie Rizvi LABORER HEADING-DESIGN CELL ENGINEER LAB BLOOD ORDERABLES Julianna ambrocio Result [facility] 875 [facility], [address] [place] [phone] * ECHOCARDIOGRAM (05/16/2023) Narrative 05/16/2023 Ordered by an unspecified provider. us Onbase Conversion CV ECHO PROCEDURES Final Resul t from Last 3 Months or Most Recently Relevant to Health Maintenance Insurance MEDICARE PART A [facility] Care Teams Drafter Patent Relationship Specialty Start Date End Date Beni Nguyen MD 112 [facility] 110 [place] [address] PCP - General 05/18/23
--- OUTSIDE RECORDS SUMMARY | 2025-02-12 14:16 | XMS_ITS | Encounter Summary ---
Author Organization [facility] Address [address] [place] [address] Care Team Providers Care Towboat Pilot Name Role Phone Beni Nguyen MD Primary Care Provider [phone] Beni Nguyen MD Unavailable [phone] Anastasia Rayo LPN Unavailable Encounter Details Date Type Department Care Team (Late st Contact Info) Description 01/08/2025 Abstract [facility] 112 [address] [facility] 110 [place] [address] Beni Nguyen MD 112 [facility] 110 [place] [address] Social History Tobacco Use Types Packs/Day Years [...] How often do you attend chur or rastafarian services? Never 03/17/2023 Do you belong to [...] Recorded Patient Health Questionnaire-2 Score 0 12/05/2024 [facility] of Occupat ional Health - Occupational [...] Upcoming Encounters Date Type Department Care Team ([facility] Contact Info) Description 04/10/2025 3:10 PM EDT Procedure Visit [facility]ODIAT[facility] [address] [facility] 120 [place] [address] Real Og DPM 3006 [facility] [place] [address] documented as of this encounter Visit Diagnoses Not on filedocumented in this encounter Care Teams Towboat Pilot Relationship Specialty Start Date End Date Beni Nguyen MD [address] [facility] 110 [place] [address] PCP - General Internal Medicine 01/02/23 Beni Nguyen MD [address] [facility] 110 [place] [address] PCP - ACO Reach 01/12/23 Anastasia Rayo LPN 112 [facility] 110 [place] [address] 11/08/24 documented as of this encounter
--- OUTSIDE RECORDS SUMMARY | 2025-02-12 14:16 | XMS_ITS | Encounter Summary ---
Author Organization [facility] Address [address] [place] [address] Care Team Providers Care Software Quality Test Engineer Name Role Phone Beni Nguyen MD Primary Care Provider [phone] Beni Nguyen MD Unavailable [phone] Esther Connolly RN Unavailable Anastasia Rayo LPN Unavailable Encounter Details Date Type Department Care Team (Late st Contact Info) Description 05/24/2023 Abstract [facility] 112 [address] [facility] 110 [place] [address] Beni Nguyen MD 112 [facility] 110 [place], [place] [address] Social History Tobacco Use Types Packs/Day Years [...] often do you attend chur ch or samaritan services? Never 03/17/2023 Do you belong to any clubs o r organizations such as pentecostal groups, unions, fraternal or athletic groups, or [...] and heating? Not hard at all 03/17/2023 [facility] of Occupat ional Health [...] PODIATRY 112 [facility] 120 [place] [address] Real Og, DPM 3006 [facility] 5 [place] [address] documented as of this encounter Visit Diagnoses Not on filedocumented in this encounter Care Teams Software Quality Test Engineer Relationship Specialty Start Date End Date Beni Nguyen MD [address] [facility] 110 [place] [address] PCP - General Internal Medicine 01/02/23 Beni Nguyen MD 112 [facility] 110 [place] [address] PCP - ACO Reach 01/12/23 Esther Connolly, HEATHER [address] [place] [address] Clinical Advocate Family Medicine 09/27/24 11/08/24 Anastasia Rayo LPN 112 [place] [address] 11/08/24 documented as of this encounter
--- OUTSIDE RECORDS SUMMARY | 2025-02-12 14:16 | XMS_ITS | Encounter Summary ---
Author Organization [facility] Address [address] [place] [address] Care Team Providers Care Radiation Therapy Technician Name Role Phone Beni Nguyen MD Primary Care Provider [phone] Beni Nguyen MD Unavailable [phone] Esther Connolly RN Unavailable [phone] Anastasia Rayo LPN Unavailable Encounter Details Date Type Department Care Team (Late st Contact Info) Description 05/11/2023 Abstract [facility] 112 [address] [facility] 110 [place] [address] Beni Nguyen MD 112 [facility] 110 [place], [place] [address] Social History Tobacco Use Types Packs/Day Years [...] often do you attend chur ch or mormonism services? Never 03/17/2023 Do you belong to any clubs o r organizations such as rastafari groups, unions, fraternal or athletic groups, or [...] and heating? Not hard at all 03/17/2023 [facility] of Occupat ional Health - Occupational [...] PODIATRY 112 [facility] 120 [place] [address] Real Og, DPM 3006 [facility] 5 [place] [address] documented as of this encounter Visit Diagnoses Not on filedocumented in this encounter Care Teams Radiation Therapy Technician Relationship Specialty Start Date End Date Beni Nguyen MD [address] [facility] 110 [place] [address] PCP - General Internal Medicine 01/02/23 Beni Nguyen MD [address] [facility] 110 [place] [address] PCP - ACO Reach 01/12/23 Esther Connolly, HEATHER [address] [place] [address] Clinical Advocate Family Medicine 09/27/24 11/08/24 Anastasia Rayo LPN 112 [place] [address] 11/08/24 documented as of this encounter
--- OUTSIDE RECORDS SUMMARY | 2025-02-12 14:16 | XMS_ITS | Encounter Summary ---
Author Organization [facility] Address [address] [place] [address] Care Team Providers Care Goodyear Welter Name Role Phone Beni Nguyen MD Primary Care Provider [phone] Beni Nguyen MD Unavailable Esther Connolly RN Unavailable Anastasia Rayo LPN Unavailable Encounter Details Date Type Department Care Team (Late st Contact Info) Description 10/31/2024 Abstract [facility] 112 [facility] 110 [place] [address] Beni Nguyen MD 112 [facility] 110 [place], [place] [id number] Social History Tobacco Use Types Packs/Day Years [...] How often do you attend chur or faith services? Never 03/17/2023 Do you belong to [...] Recorded Patient Health Questionnaire-2 Score 0 10/29/2024 [facility] of Occupat ional Health - [...] Upcoming Encounters Date Type Department Care Team ([facility] Contact Info) Description 04/10/2025 3:10 PM EDT Procedure Visit [facility] [address] [facility] 120 [place] [address] Real Og DPM 3006 [facility] 5 [place] [address] documented as of this encounter Visit Diagnoses Not on filedocumented in this encounter Care Teams Goodyear Welter Relationship Specialty Start Date End Date Beni Nguyen MD [address] [facility] 110 [place] [address] PCP - General Internal Medicine 01/02/23 Beni Nguyen MD [address] [facility] 110 [place] [address] PCP - ACO Reach 01/12/23 Esther Connolly, RN [address] [place] [address] Clinical Advocate Family Medicine 09/27/24 11/08/24 Anastasia Rayo LPN 112 [address] [facility] 110 [place] [address] 11/08/24 documented as of this encounter
--- OUTSIDE RECORDS SUMMARY | 2025-02-12 14:16 | XMS_ITS | Encounter Summary ---
Author Organization [facility] Address [address] [place] [address] Phone Care Team Providers Care Supervisor Coil Winding Name Role Phone Beni Nguyen MD Primary Care Provider [phone] Encounter Details Date Type Department Care Team (Late st Contact Info) Description 05/21/2023 Scanned Document [facility] [address] [place] [address] Scanning, Generic Provider Social History Tobacco Use [...] EST Office Visit [facility] 703 [facility] [address] [place] [address] Juan C Hoover, 703 [facility] 2, [address] [place], [place] [address] documented as of this encounter Visit Diagnoses Not on filedocumented in this encounter Care Teams Supervisor Coil Winding Relationship Specialty Start Date End Date Beni Nguyen MD [address] [facility] 110 [place] [address] PCP - General 05/18/23 documented as of this encounter
--- OUTSIDE RECORDS SUMMARY | 2025-02-12 14:16 | XMS_ITS | Encounter Summary ---
Author Organization [facility] Address [address] [place] [address] Care Team Providers Care Sill Worker Name Role Phone Beni Nguyen MD Primary Care Provider [phone] Beni Nguyen MD Unavailable [phone] Anastasia Rayo LPN Unavailable Encounter Details Date Type Department Care Team (Late st Contact Info) Description 12/31/2024 Abstract [facility] 112 [address] [facility] 110 [place] [address] Beni Nguyen MD 112 [facility] 110 [place] [address] Social History Tobacco Use Types Packs/Day Years [...] Recorded Patient Health Questionnaire-2 Score 0 12/05/2024 [facility] of Occupat ional Health - [...] [place] Contact Info) Description 04/10/2025 3:10 PM EDT Procedure Visit [facility] PODIATRY [address] [facility] 120 [place] [address] Real Og DPM 3006 [facility] 5 [place] [address] documented as of this encounter Visit Diagnoses Not on filedocumented in this encounter Care Teams Sill Worker Relationship Specialty Start Date End Date Beni Nguyen MD [address] [facility] 110 [place] [address] PCP - General Internal Medicine 01/02/23 Beni Nguyen MD [address] [facility] 110 [place] [address] PCP - ACO Reach 01/12/23 Anastasia Rayo LPN 112 [facility] 110 [place] [address] 11/08/24 documented as of this encounter
--- OUTSIDE RECORDS SUMMARY | 2025-02-12 14:16 | XMS_ITS | Encounter Summary ---
Author Organization [facility] Address [address] [place] [address] Phone Care Team Providers Care Senior Asp Net Developer Name Role Phone Beni Nguyen MD Primary Care Provider [phone] Encounter Details Date Type Department Care Team (Late st Contact Info) Description 07/31/2023 Scanned Document [facility] [address] [place] [address] Scanning, Generic Provider Social History Tobacco Use [...] Description 09/25/2025 2:10 PM EST Office Visit [facility] [address] [facility] [address] [place] [address] Juan C Hoover, 703 [facility] 2, [address] [place], [place] [address] documented as of this encounter Visit Diagnoses Not on filedocumented in this encounter Care Teams Senior Asp Net Developer Relationship Specialty Start Date End Date Beni Nguyen MD [address] [facility] 110 [place] [address] PCP - General 05/18/23 documented as of this encounter
--- OUTSIDE RECORDS SUMMARY | 2025-02-12 14:16 | XMS_ITS | Encounter Summary ---
Author Organization [facility] Address [address] [place] [address] Care Team Providers Care Regional Rehabilitation Director Name Role Phone Beni Nguyen MD Primary Care Provider [phone] Beni Nguyen MD Unavailable [phone] Esther Connolly RN Unavailable Anastasia Rayo LPN Unavailable Encounter Details Date Type Department Care Team (Late st Contact Info) Description 11/05/2024 Abstract [facility] 112 [facility] 110 [place] [address] Beni Nguyen MD 112 [facility] 110 [place], [place] [address] Social History Tobacco Use Types Packs/Day Years [...] How often do you attend chur or catholic services? Never 03/17/2023 Do you belong [...] Recorded Patient Health Questionnaire-2 Score 0 10/29/2024 [facility] of Occupat [...] Care Team ([facility] Contact Info) Description 04/10/2025 3:10 PM EDT Procedure Visit [facility] 112 [address] [facility] 120 [place] [address] Real Og DPM 3006 [facility] 5 [place] [address] documented as of this encounter Visit Diagnoses Not on filedocumented in this encounter Care Teams Regional Rehabilitation Director Relationship Specialty Start Date End Date Beni Nguyen MD [address] [facility] 110 [place] [address] PCP - General Internal Medicine 01/02/23 Beni Nguyen MD [address] [facility] 110 [place] [address] PCP - ACO Reach 01/12/23 Esther Connolly, RN [address] [place] [address] Clinical Advocate Family Medicine 09/27/24 11/08/24 Anastasia Rayo LPN [address] [facility] 110 [place] [address] 11/08/24 documented as of this encounter
--- OUTSIDE RECORDS SUMMARY | 2025-02-12 14:17 | XMS_ITS | Encounter Summary ---
Author Organization [facility] Address [address] [facility] [place] [address] Care Team Providers Care Supervisor Roving Department Name Role Phone Beni Nguyen MD Primary Care Provider [phone] Beni Nguyen MD Unavailable [phone] Esther Connolly RN Unavailable [phone] Anastasia Rayo LPN Unavailable Encounter Details Date Type Department Care Team (Late st Contact Info) Description 06/24/2024 Abstract [facility] 112 [facility] 110 [place] [address] Beni Nguyen MD 112 [facility] 110 [place], [place] [id number] Social History Tobacco Use Types Packs/Day Years [...] How often do you attend chur or orthodox services? Never 03/17/2023 Do you belong [...] Recorded Patient Health Questionnaire-2 Score 0 10/05/2023 [facility] of Occupat ional Health - [...] Upcoming Encounters Date Type Department Care Team ([facility] Contact Info) Description 04/10/2025 3:10 PM EDT Procedure Visit [facility] 112 [address] [facility] 120 [place] [address] Real Og DPM 3006 [facility] [place] [facility] 5 [place] [address] documented as of this encounter Visit Diagnoses Not on filedocumented in this encounter Care Teams Supervisor Roving Department Relationship Specialty Start Date End Date Beni Nguyen MD [address] [facility] 110 [place] [address] PCP - General Internal Medicine 01/02/23 Beni Nguyen MD [address] [facility] 110 [place] [address] PCP - ACO Reach 01/12/23 Esther Connolly, RN [address] [place] [address] Clinical Advocate Family Medicine 09/27/24 11/08/24 Anastasia Rayo LPN [address] [facility] 110 [place] [address] 11/08/24 documented as of this encounter
--- OUTSIDE RECORDS SUMMARY | 2025-02-12 14:17 | XMS_ITS | Encounter Summary ---
Author Organization [facility] Address [address] [place] [address] Care Team Providers Care Rivet Thrower Name Role Phone Beni Nguyen MD Primary Care Provider Beni Nguyen MD Unavailable [phone] Esther Connolly RN Unavailable [phone] Anastasia Rayo LPN Unavailable Encounter Details Date Type Department Care Team (Late st Contact Info) Description 06/27/2023 Abstract [facility] 112 [address] [facility] 110 [place] [address] Beni Nguyen MD 112 [facility] [place] [facility] 110 [place], [place] [phone] Social History Tobacco Use Types Packs/Day Years [...] and heating? Not hard at all 03/17/2023 [facility] of Occupat ional Health [...] Procedure Visit [facility]OD[facility] 112 [facility] 120 [place] [address] Real Og, DPM 3006 [facility] 5 [place] [address] documented as of this encounter Visit Diagnoses Not on filedocumented in this encounter Care Teams Rivet Thrower Relationship Specialty Start Date End Date Beni Nguyen MD [address] [facility] 110 [place] [address] PCP - General Internal Medicine 01/02/23 Beni Nguyen MD [address] [facility] 110 [place] [address] PCP - ACO Reach 01/12/23 Esther Connolly, HEATHER [address] [place] [address] Clinical [facility] Family [facility] 09/27/24 11/08/24 Anastasia Rayo LPN 112 [place] [address] 11/08/24 documented as of this encounter
--- OUTSIDE RECORDS SUMMARY | 2025-02-12 14:17 | XMS_ITS | Encounter Summary ---
Author Organization [facility] Address [address] [place] [address] Care Team Providers Care Gate Technician Name Role Phone Beni Nguyen MD Primary Care Provider [phone] Beni Nguyen MD Unavailable [phone] Esther Connolly RN Unavailable Anastasia Rayo LPN Unavailable Encounter Details Date Type Department Care Team (Late st Contact Info) Description 05/23/2023 Abstract [facility] 112 [facility] 110 [place] [address] Beni Nguyen MD 112 [facility] 110 [place], [place] [id number] Social History Tobacco Use Types Packs/Day Years [...] any clubs o r organizations such as nondenominational groups, unions, fraternal or athletic groups, or [...] CI PODIATRY 112 [facility] 120 [place] [address] Real Og, DPM 3006 [facility] 5 [place] [address] documented as of this encounter Visit Diagnoses Not on filedocumented in this encounter Care Teams Gate Technician Relationship Specialty Start Date End Date Beni Nguyen MD [address] [facility] 110 [place] [address] PCP - General Internal Medicine 01/02/23 Beni Nguyen MD [address] [facility] 110 [place] [address] PCP - ACO Reach 01/12/23 Esther Connolly, HEATHER [address] [place] [address] Clinical [facility] Family [facility] 09/27/24 11/08/24 Anastasia Rayo LPN 112 [place] [address] 11/08/24 documented as of this encounter
--- OUTSIDE RECORDS SUMMARY | 2025-02-12 14:17 | XMS_ITS | Encounter Summary ---
Author Organization [facility] Address [address] [place] [address] Care Team Providers Care Pneumatic Hoist Operator Name Role Phone Beni Nguyen MD Primary Care Provider [phone] Beni Nguyen MD Unavailable [phone] Esther Connolly RN Unavailable [phone] Anastasia Rayo LPN Unavailable Encounter Details Date Type Department Care Team (Late st Contact Info) Description 07/04/2023 Abstract [facility] 112 [facility] 110 [place] [address] Beni Nguyen MD 112 [facility] 110 [place], [place] [id number] Social History Tobacco Use Types Packs/Day Years [...] often do you attend chur ch or taoist services? Never 03/17/2023 Do you [...] 112 [facility] 120 [place] [address] Real Og, DPM 3006 [facility] 5 [place] [address] documented as of this encounter Visit Diagnoses Not on filedocumented in this encounter Care Teams Pneumatic Hoist Operator Relationship Specialty Start Date End Date Beni Nguyen MD [address] [facility] 110 [place] [address] PCP - General Internal Medicine 01/02/23 Beni Nguyen MD [address] [facility] 110 [place] [address] PCP - ACO Reach 01/12/23 Esther Connolly, HEATHER [address] [place] [address] Clinical Advocate Family Medicine 09/27/24 11/08/24 Anastasia Rayo LPN 112 [place] [address] 11/08/24 documented as of this encounter
--- OUTSIDE RECORDS SUMMARY | 2025-02-12 14:17 | XMS_ITS | Encounter Summary ---
Author Organization [facility] Address [address] [place] [address] Care Team Providers Care Signal Operator Name Role Phone Beni Nguyen MD Primary Care Provider [phone] Beni Nguyen MD Unavailable [phone] Esther Connolly RN Unavailable [phone] Anastasia Rayo LPN Unavailable Encounter Details Date Type Department Care Team (Late st Contact Info) Description 06/20/2023 Abstract [facility] 112 [facility] [facility] 110 [place] [address] Beni Nguyen MD 112 [facility] 110 [place], [place] [id number] Social History Tobacco Use Types Packs/Day Years [...] and heating? Not hard at all 03/17/2023 [facility] - [...] 112 [facility] 120 [place] [address] Real Og, DPM 3006 [facility] 5 [place] [address] documented as of this encounter Visit Diagnoses Not on filedocumented in this encounter Care Teams Signal Operator Relationship Specialty Start Date End Date Beni Nguyen MD [address] [facility] 110 [place] [address] PCP - General Internal Medicine 01/02/23 Beni Nguyen MD [address] [facility] 110 [place] [address] PCP - ACO Reach 01/12/23 Esther Connolly, HEATHER [address] [place] [address] Clinical Advocate Family Medicine 09/27/24 11/08/24 Anastasia Rayo LPN 112 [place] [address] 11/08/24 documented as of this encounter
--- OUTSIDE RECORDS SUMMARY | 2025-02-12 14:17 | XMS_ITS | Encounter Summary ---
Author Organization [facility] Address [address] [place] [address] Care Team Providers Care Top Collar Baster Name Role Phone Beni Nguyen MD Primary Care Provider [phone] Beni Nguyen MD Unavailable [phone] Esther Connloly RN Unavailable [phone] Anastasia Rayo LPN Unavailable Encounter Details [...] Recorded Patient Health Questionnaire-2 Score 0 10/05/2023 [facility] - Occupational [...] Upcoming Encounters Date Type Department Care Team ([facility] st Contact Info) Description 04/10/2025 3:10 PM EDT Procedure Visit [facility] PODIATRY 112 [facility] 120 [place] [address] Real Og DPM 3006 [facility] 5 [place] [address] documented as of this encounter Procedures Procedure Name Priority Date/Time Associated Diagnosis Comments MR KNEE LT WO CON 03/07/2024 4:3 0 AM EDT documented in this encounter Results * MR KNEE LT WO CON (03/07/2024 4:30 AM EDT) Anatomical Region Laterality Modality Other 03/07/2024 4:30 AM EDT Narrative 03/07/2024 4:33 AM EDT The [address] [address] Magnetic Resonance Report Signed Patient: ANKUR REILLY MR#: [id number] : 1945 Acct:[id number] Age/Sex: 78 / M ADM Date: 03/06/24 Loc: MRI Attending Dr: Priya Gao M.D. Ordering Physician: Priya Gao M.D. Date of Service: 03/06/24 Procedure(s): MR knee LT wo con Accession Number(s): [id number] cc: BENI NGUYEN ; Priya Gao M.D. [place] [id number] Patient Name: ANKUR REILLY MRN: [id number] date: 1945 Sex: M Assigned Patient Location: MRI Current Patient Location: Accession/Order Number: [id number] Exam Date: 03/06/2024 07:00 Report Date: 03/07/2024 [...] M.D. Signed By: 03/07/24432 DD/ 9 TD/TT: Manager Mass: Procedure Note Radiology, Radiologist, MD - 03/07/2024 [place] [address] Magnetic Resonance Report Signed Patient: ANKUR REILLY AMR#: [id number] : 1945cct:[id number] Age/Sex: 78 / MADM Date: 03/06/24 Loc: MRI Attending Dr: Priya Gao M.D. Ordering Physician: Priya Gao M.D. Date of Service: 03/06/24 Procedure(s): MR knee LT wo con Accession Number(s): [id number] cc: BENI NGUYEN ; Priya Gao M.D. The [place] [address] Patient Name: ANKUR REILLY MRN: [id number] date: 1945 Sex: M Assigned Patient Location: MRI Current Patient Location: Accession/Order Number: [id number] Exam Date: 03/06/2024 07:00 Report Date: 03/07/2024 04:30 At the request of: PRIYA GAO Procedure: MR knee LT wo con EXAMINATION: MR knee LT wo con HISTORY: left knee pain COMPARISON: No relevant comparison available. TECHNIQUE: A complete multi-planar MRI was performed. 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 No convincing [...] mild-moderate prepatellar bursitis. Electronically authenticated by: PRIYA PREEZ Date: 03/07/2024 04:30 Dictated By: Priya Perez M.D. Signed By:03/07/243 DD/ 9 TD/TT: Manager Mass: Generic External Data Provider [facility] Final Result documented in this encounter Visit Diagnoses Not on filedocumented in this encounter Care Teams Top Collar Baster Relationship Specialty Start Date End Date Beni Nguyen MD [address] [facility] 110 [place] [address] PCP - General Internal Medicine 01/02/23 Beni Nguyen MD [address] [facility] 110 [place] [address] PCP - ACO Reach 01/12/23 Esther Connolly, HEATHER [address] [place] [address] Clinical Advocate Family Medicine 09/27/24 11/08/24 Anastasia Rayo LPN [address] [address] 11/08/24 documented as of this encounter
--- OUTSIDE RECORDS SUMMARY | 2025-02-12 14:17 | XMS_ITS | Encounter Summary ---
Author Organization [facility] Address [address] [place] [address] Care Team Providers Care Floor Tiling Professional Name Role Phone Beni Nguyen MD Primary Care Provider [phone] Beni Nguyen MD Unavailable [phone] Esther Connolly RN Unavailable Anastasia Rayo LPN Unavailable Encounter Details Date Type Department Care Team (Late st Contact Info) Description 06/20/2024 Abstract [facility] [address] [facility] 110 [place] [address] Beni Nguyen MD 112 [facility] 110 [place], [place] [id number] Social History Tobacco Use Types Packs/Day Years [...] Recorded Patient Health Questionnaire-2 Score 0 10/05/2023 [facility]at ional [...] Date Type Department Care Team ([facility] Contact Info) Description 04/10/2025 3:10 PM EDT Procedure Visit [facility] PODIATRY 112 [facility] 120 [place] [address] Real Og DPM [address] [facility] 5 [place] [address] documented as of this encounter Visit Diagnoses Not on filedocumented in this encounter Care Teams Floor Tiling Professional Relationship Specialty Start Date End Date Beni Nguyen MD [address] [facility] 110 [place] [address] PCP - General Internal Medicine 01/02/23 Beni Nguyen MD [address] [facility] 110 [place] [address] PCP - ACO Reach 01/12/23 Esther Connolly, RN [address] [place] [address] Clinical Advocate Family Medicine 09/27/24 11/08/24 Anastasia Rayo LPN 112 [facility] 110 [place] [address] 11/08/24 documented as of this encounter
--- OUTSIDE RECORDS SUMMARY | 2025-02-12 14:17 | XMS_ITS | Encounter Summary ---
Author Organization [facility] Address [address] [place] [address] Care Team Providers Care Osd Clerk Name Role Phone Beni Nguyen MD Primary Care Provider [phone] Beni Nguyen MD Unavailable [phone] Esther Connolly RN Unavailable Anastasia Rayo LPN Unavailable Encounter Details Date Type Department Care Team (Late st Contact Info) Description 05/23/2023 Abstract [facility] 112 [facility] 110 [place] [address] Beni Nguyen MD 112 [facility] 110 [place], [place] [address] Social History Tobacco Use Types Packs/Day Years [...] PODIATRY 112 [facility] 120 [place] [address] Real Og, DPM 3006 [facility] 5 [place] [address] documented as of this encounter Visit Diagnoses Not on filedocumented in this encounter Care Teams Osd Clerk Relationship Specialty Start Date End Date Beni Nguyen MD [address] [facility] 110 [place] [address] PCP - General Internal Medicine 01/02/23 Beni Nguyen MD [address] [facility] 110 [place] [address] PCP - ACO Reach 01/12/23 Esthre Connolly, HEATHER [address] [place] [address] Clinical Advocate Family Medicine 09/27/24 11/08/24 Anastasia Rayo LPN 112 [place] [address] 11/08/24 documented as of this encounter
--- OUTSIDE RECORDS SUMMARY | 2025-02-12 14:17 | XMS_ITS | Encounter Summary ---
Author Organization [facility] Address [address] [place] [address] Care Team Providers Care Neurology Director Name Role Phone Beni Nguyen MD Primary Care Provider [phone] Beni Nguyen MD Unavailable [phone] Esther Connolly RN Unavailable Anastasia Rayo LPN Unavailable Encounter Details Date Type Department Care Team (Late st Contact Info) Description 07/18/2023 Abstract [facility] 112 [facility] 110 [place] [address] Beni Nguyen MD 112 [facility] 110 [place], [place] [address] Social History Tobacco Use Types Packs/Day Years [...] often do you attend chur ch or yazidi services? Never 03/17/2023 Do you belong to [...] and heating? Not hard at all 03/17/2023 [facility] Occupat ional [facility] - [...] CI PODIATRY 112 [facility] 120 [place] [address] Real Og, DPM 3006 [facility] 5 [place] [address] documented as of this encounter Visit Diagnoses Not on filedocumented in this encounter Care Teams Neurology Director Relationship Specialty Start Date End Date Beni Nguyen MD [address] [facility] 110 [place] [address] PCP - General Internal Medicine 01/02/23 Beni Nguyen MD 112 [facility] 110 [place] [address] PCP - ACO Reach 01/12/23 Esther Connolly, HEATHER [address] [place] [address] Clinical Advocate Family Medicine 09/27/24 11/08/24 Anastasia Rayo LPN 112 [place] [address] 11/08/24 documented as of this encounter
--- OUTSIDE RECORDS SUMMARY | 2025-02-12 14:17 | XMS_ITS | Encounter Summary ---
Author Organization [facility] Address [address] [facility] [place] [address] Care Team Providers Care Busboy Name Role Phone Beni Nguyen MD Primary Care Provider [phone] Beni Nguyen MD Unavailable [phone] Esther Connolly RN Unavailable Anastasia Rayo LPN Unavailable Encounter Details Date Type Department Care Team (Late st Contact Info) Description 06/25/2024 Abstract [facility] 112 [facility] 110 [place] [address] Beni Nguyen MD 112 [facility] 110 [place], [place] [address] Social History Tobacco Use Types Packs/Day Years [...] How often do you attend chur or jainism services? Never 03/17/2023 Do you [...] Upcoming Encounters Date Type Department Care Team ([facility] Contact Info) Description 04/10/2025 3:10 PM EDT Procedure Visit [facility] CI PODIATRY 112 [facility] 120 [place] [address] Real Og DPM 3006 [facility] 5 [place] [address] documented as of this encounter Visit Diagnoses Not on filedocumented in this encounter Care Teams Busboy Relationship Specialty Start Date End Date Beni Nguyen MD [address] [facility] 110 [place] [address] PCP - General Internal Medicine 01/02/23 Beni Nguyen MD [address] [facility] 110 [place] [address] PCP - ACO Reach 01/12/23 Esther Connolly, RN [address] [place] [address] Clinical Advocate Family Medicine 09/27/24 11/08/24 Anastasia Rayo LPN [address] [facility] 110 [place] [address] 11/08/24 documented as of this encounter
--- OUTSIDE RECORDS SUMMARY | 2025-02-12 14:17 | XMS_ITS | Encounter Summary ---
Author Organization [facility] Address [address] [place] [address] Care Team Providers Care Detective Bowling Alley Name Role Phone Beni Nguyen MD Primary Care Provider [phone] Beni Nguyen MD Unavailable [phone] Esther Connolly RN Unavailable Anastasia Rayo LPN Unavailable Encounter Details Date Type Department Care Team (Late st Contact Info) Description 06/20/2024 Abstract [facility] FM 112 [facility] 110 [place] [address] Beni Nguyen MD 112 [place] [facility] 110 [place], [place] [address] Social History Tobacco Use Types Packs/Day Years [...] Recorded Patient Health Questionnaire-2 Score 0 10/05/2023 [facility] Occupat ional Health - Occupational [...] Upcoming Encounters Date Type Department Care Team ([facility] Contact Info) Description 04/10/2025 3:10 PM EDT Procedure Visit [facility] CI PODIATRY 112 [facility] 120 [place] [address] Real Og DPM 3006 [facility] 5 [place] [address] documented as of this encounter Visit Diagnoses Not on filedocumented in this encounter Care Teams Detective Bowling Alley Relationship Specialty Start Date End Date Beni Nguyen MD [address] [facility] 110 [place] [address] PCP - General Internal Medicine 01/02/23 Beni Nguyen MD [address] [facility] 110 [place] [address] PCP - ACO Reach 01/12/23 Esther Connolly, RN [address] [place] [address] Clinical Advocate Family Medicine 09/27/24 11/08/24 Anastasia Rayo LPN 112 [facility] 110 [place] [address] 11/08/24 documented as of this encounter
--- OUTSIDE RECORDS SUMMARY | 2025-02-12 14:17 | XMS_ITS | Encounter Summary ---
Author Organization [facility] Address [address] [place] [address] Care Team Providers Care Technical Instructor Course Developer Name Role Phone Beni Nguyen MD Primary Care Provider Beni Nguyen MD Unavailable [phone] Esther Connolly RN Unavailable [phone] Anastasia Rayo LPN Unavailable Encounter Details Date Type Department Care Team (Late st Contact Info) Description 06/20/2024 Abstract [facility] 112 [facility] 110 [place] [address] Beni Nguyen MD 112 [facility] 110 [place], [place] [address] Social History Tobacco Use Types Packs/Day Years [...] Recorded Patient Health Questionnaire-2 Score 0 10/05/2023 [facility] of Occupat ional [...] Upcoming Encounters Date Type Department Care Team ([facility] Contact Info) Description 04/10/2025 3:10 PM EDT Procedure Visit [facility] CI PODIATRY 112 [facility] 120 [place] [address] Real Og DPM 3[address] [facility] 5 [place] [address] documented as of this encounter Visit Diagnoses Not on filedocumented in this encounter Care Teams Technical Instructor Course Developer Relationship Specialty Start Date End Date Beni Nguyen MD [address] [facility] 110 [place] [address] PCP - General Internal Medicine 01/02/23 Beni Nguyen MD [address] [facility] 110 [place] [address] PCP - ACO Reach 01/12/23 Esther Connolly, RN [address] [place] [address] Clinical Advocate Family Medicine 09/27/24 11/08/24 Anastasia Rayo LPN 112 [facility] [facility] 110 [place] [address] 11/08/24 documented as of this encounter
--- OUTSIDE RECORDS SUMMARY | 2025-02-12 14:17 | XMS_ITS | Encounter Summary ---
Author Organization [facility] Address [address] [place] [address] Care Team Providers Care Ethnographer Name Role Phone Beni Nguyen MD Primary Care Provider [phone] Beni Nguyen MD Unavailable [phone] Esther Connolly RN Unavailable [phone] Anastasia Rayo LPN Unavailable Encounter Details Date Type Department Care Team (Late st Contact Info) Description 08/04/2023 Abstract [facility] FM 112 [facility] 110 [place] [address] Beni Nguyen MD 112 [facility] 110 [place], [place] [address] Social History Tobacco Use Types Packs/Day Years [...] often do you attend chur ch or religion services? Never 03/17/2023 Do you belong to [...] Procedure Visit [facility] CI PODIATRY 112 [facility] 120 [place] [address] Real gO, DPM 3006 [facility] 5 [place] [address] documented as of this encounter Visit Diagnoses Not on filedocumented in this encounter Care Teams Ethnographer Relationship Specialty Start Date End Date Beni Nguyen MD [address] [facility] 110 [place] [address] PCP - General Internal Medicine 01/02/23 Beni Nguyen MD 112 [facility] 110 [place] [address] PCP - ACO Reach 01/12/23 Esther Connolly, HEATHER [address] [place] [address] Clinical Advocate Family Medicine 09/27/24 11/08/24 Anastasia Rayo LPN 112 [place] [address] 11/08/24 documented as of this encounter
--- OUTSIDE RECORDS SUMMARY | 2025-02-12 14:17 | XMS_ITS | Clinical Summary ---
Author Organization [facility] Address [address] [place] [address] Care Team Providers Care Gauge And Weigh Machine Operator Name Role Phone Beni Nguyen MD Primary Care Provider [phone] Beni Nguyen MD Unavailable [phone] Anastasia Rayo LPN Unavailable Allergies No known active allergies Medications Multiple Vitamins-Minerals (GNP ONE DAILY MENS 50+ADVANCED PO) 06/30/20 09 Active loratadine (Claritin) 10 MG tablet Take 10 mg by mouth Daily Active omega-3 (Fish Oil) 1000 MG capsule Take 2 capsules by mouth Daily Active nystatin (Mycostatin) [id number] UNIT/GM powder 23 Active apixaban (Eliquis) 5 MG tabletIndications:Pulmon cecille embolism, unspecified chronicity, unspecified pulmonary embolism type, unspecified whether acute cor pulmonale present (HCC) TAKE 1 TABLET BY MOUTH TWICE DAILY 180 tablet 3 05/27/20 24 Active baclofen (Lioresal) 10 MG tabletIndications:Cervic al stenosis of spinal canal TAKE 1 TABLET BY MOUTH WITH FOOD OR MILK 3 TIMES DAILY 270 tablet 1 07/17/20 24 Active pyridostigmine (Mestinon) 60 MG tabletIndications:Myasth enia gravis (HCC) TAKE 1 TABLET BY MOUTH IN THE MORNING AND 1 TABLET BY MOUTH AT NOON AND 1 TABLET BY MOUTH IN THE EVENING AND 1 TABLET BY MOUTH BEFORE BEDTIME 400 tablet 3 08/26/19 25 Active lisinopril 20 MG tabletIndications:Benign essential hypertension Take 1 tablet (20 mg) by mouth Daily 90 tablet 3 09/09/19 25 026 Active simvastatin (Zocor) 40 MG tabletIndications:Pure hypercholesterolemia TAKE 1 TABLET BY MOUTH ONCE DAILY IN THE EVENING 90 tablet 3 09/23/19 25 Active hydrALAZINE (Apresoline) 50 MG tabletIndications:Benign essential hypertension Take 1 tablet (50 mg) by mouth in the morning and 1 tablet (50 mg) before bedtime. 180 tablet 3 10/09/19 25 026 Active gabapentin (Neurontin) 300 MG capsuleIndications:Type 2 diabetes mellitus with diabetic neuropathy, without long-term current use of insulin (HCC) TAKE 1 CAPSULE BY MOUTH IN THE MORNING AND 1 CAPSULE BY MOUTH BEFORE BEDTIME 180 capsule 3 11/13/19 25 Active potassium chloride CR (Klor-Con M10) 10 MEQ ER tabletIndications:Hypoka lemia TAKE 1 TABLET BY MOUTH IN THE MORNING AND 1 TABLET BY MOUTH BEFORE BEDTIME TAKE WITH FOOD 180 tablet 3 11/20/19 25 Active predniSONE (Deltasone) 10 MG tabletIndications:Myasth enia gravis (HCC) TAKE 1 AND 1/2 TABLETS BY MOUTH DAILY 135 tablet 11/20/19 25 Active cephalexin (Keflex) 500 MG capsule Take 500 mg by mouth in the morning and 500 mg before bedtime. 11/28/19 25 Active furosemide (Lasix) 20 MG tabletIndications:Locali zed edema Take 1-2 tablets (20-40 mg) by mouth Daily 180 tablet 3 11/29/19 25 026 Active oxyCODONE-acetaminophen (Percocet) 5-325 MG tabletIndications:Pain Take 1 tablet by mouth 2 (two) times a day as needed for moderate pain or severe pain 60 tablet 12/06/19 25 Active Active Problems Problem Noted Date Diagnosed [...] dysphagia 11/17/2023 Stage 3 chronic kidney disease 11/17/2023 High risk medication use 09/20/2023 Paroxysmal [...] exertion 12/27/2022 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 Hypercoagulable state ([facility]) 12/27/2022 Hypokalemia 12/27/2022 Hyponatremia 12/27/2022 Loss of [...] Encounters Date Type Department Care Team Description 02/05/2025 Abstract [facility] [address] [facility] [address] [place] [address] Beni Nguyen MD 01/30/2025 3:10 PM EDT Procedure Visit [facility] [address] [facility] [address] [place] [address] Real Og, DPMarcial 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cosis of toenails of both feet (Primary Dx); Venous insufficiency 01/30/2025 Bamboo flowsheet [facility] [address] [facility] [address] [place] [address] Real Og DPM 01/30/2025 Travel 01/29/2025 [address]phone [facility] [address] [facility] [address] [place] [address] Leela Cherry, METHODS SPECIALIST ENGINEER FYI 01/23/2025 Abstract [facility] [address] [facility] [address] [place] [address] Beni Nguyen MD 01/08/2025 Abstract [facility] [address] [facility] [address] [place] [address] Beni Nguyen MD 01/06/2025 12:30 PM EDT Office Visit [facility] [address] [place] [address] Sandro Saunders DO Myasthenia gravis (HCC) (Primary Dx); Class 3 severe obesity due to excess calories with serious comorbidity and body mass index (BMI) of 45.0 to 49.9 in adult ([facility]-H[facility]); Ulnar neuropathy of both upper extremities 01/06/2025 Bamboo flowsheet [facility] [address] [place] [address] Sandro Saunders DO 01/02/2025 4:20 PM EDT Office Visit [facility] [address] [facility] [address] [place] [address] Real Og DPM Laceration of lesser toe of left foot without foreign body present, nail damage status unspecified, initial encounter (Primary Dx); Closed nondisplaced fracture of distal phalanx of left great toe, initial encounter; Venous insufficiency 01/02/2025 Bamboo flowsheet [facility] [address] [facility] [address] [place] [address] Real Og DPM 01/02/2025 Travel 12/31/2024 Abstract [facility] [address] [facility] [address] [place] [address] Beni Nguyen MD 12/31/2024 Abstract [facility] [address] [facility] [address] [place] [address] Beni Nguyen MD 12/18/2024 Patient Outreach [facility] [address] [place] [address] Anastasia Rayo LPN 12/18/2024 Abstract [facility] [address] [facility] [address] [place] [address] Beni Nguyen MD 12/12/2024 1:30 PM EDT Office Visit [facility] [address] [facility] [address] [place] [address] Real Og DPM Laceration of lesser toe of left foot without foreign body present, nail damage status unspecified, initial encounter (Primary Dx); Closed nondisplaced fracture of distal phalanx of left great toe, initial encounter 12/12/2024 1:25 PM EDT Ancillary Procedure [facility] [address] [facility] [address] [place] [address] 12/12/2024 Bamboo flowsheet [facility] [address] [facility] [address] [place] [address] Real Og DPM 12/12/2024 Travel 12/11/2024 Abstract [facility] [address] [facility] [address] [place] [address] Beni Nguyen MD 12/05/2024 2:40 PM EDT Office Visit [facility] [address] [facility] [address] [place] [address] Real Og DPM Laceration of lesser toe of left foot without foreign body present, nail damage status unspecified, initial encounter (Primary Dx); Closed nondisplaced fracture of distal phalanx of left great toe, initial encounter 12/05/2024 2:00 PM EDT Office Visit [facility] [address] [facility] [address] [place] [address] Leela Cherry NP Fall, subsequent encounter (Primary Dx); Decreased mobility; Weakness; Pain 12/05/2024 Bamboo flowsheet [facility] [address] [facility] [address] [place] [address] Leela Cherry NP 12/05/2024 Travel 11/28/2024 Refill [facility] [address] [place] [address] Anastasia Rayo LPN Localized edema 11/28/2024 Patient Outreach [facility] [address] [place] [address] Anastasia Rayo LPN 11/26/2024 Refill [facility] [address] [facility] [address] [place] [address] Leela Cherry NP Localized edema 11/21/2024 2:40 PM EDT Procedure Visit [facility] [address] [facility] [address] [place] [address] Real Og, SRIDHAR 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cosis of toenails of both feet (Primary Dx); Venous insufficiency 11/21/2024 Bamboo flowsheet [facility] [address] [facility] [address] [place] [address] Real Og DPM 11/21/2024 Travel 11/19/2024 Refill [facility] [place] [address] [place] [address] Sandro Saunders DO Myasthenia gravis (HCC) 11/19/2024 Refill [facility] [address] [facility] [address] [place] [address] Beni Nguyen MD Hypokalemia 11/19/2024 Refill [facility] [address] [facility] [address] [place] [address] Aide Garcia, PA Benign essential hypertension from Last 3 Months Immunizations Immunization Administration [...] any clubs o r organizations such as mandaeism groups, unions, fraternal or athletic groups, or [...] Recorded Patient Health Questionnaire-2 Score 0 12/05/2024 [facility] - Occupational Stress Questionnaire Answer Date Recorded [...] 11/06/2023 12:54 PM EDT Respiratory Rate 18 01/30/2025 3:04 PM EDT Oxygen Saturation 94% 01/06/2025 12:33 PM EDT Inhaled Oxygen Concentration - - Weight 137 kg (302 lb) 01/30/2025 3:04 PM EDT Height 172.7 cm (5' 8 ) 01/30/2025 3:04 PM EDT Body Mass Index 45.92 01/30/2025 3:04 PM EDT Plan of Treatment Upcoming Encounters Date Type Department Care Team (Late st Contact Info) Description 04/10/2025 3:10 PM EDT Procedure Visit [facility] [address] [facility] [address] [place] [address] Real Og DPM 3006 [facility] 5 [place] [address] Health Maintenance Due Date Last Done Comments Diabetes: Retinopathy Screening 1955 Diabetes: Urine Protein Screening 08/17/2021 08/17/2020, 05/27/2019, 03/15/2018 Diabetes: Hemoglobin A1C 12/16/2024 025, 09/25/2023, 03/31/2023, Additional history exists Pneumococcal Vaccine: 65+ Years Completed 11/30/2017, 08/06/2016, 10/26/2015, Additional history exists Influenza Vaccine Completed 06/05/2024, , 07/13/2022, Additional history exists Procedures Procedure Name Priority Date/Time Associated Diagnosis Comments XR FOOT 3+ VIEWS LEFT Routine 12/12/2024 1:23 PM EDT Closed nondisplaced fracture of distal phalanx of left great toe, initial encounter POCT GLYCATED HEMOGLOBIN, TOTAL Routine 09/17/2024 2:55 PM EST Type 2 diabetes mellitus with diabetic neuropathy, without long-term current use of insulin (HCC) MICROALBUMIN / CREATININE URINE RATIO Routine 08/17/2020 from Last 3 Months or Most Recently Relevant to Health Maintenance Results * XR foot 3+ views left (12/12/2024 1:23 PM EDT) Anatomical Region Laterality Modality Lower Extremities, Foot Left Radiogra phic Imaging Narrative 12/12/2024 1:42 PM EDT Imaging Result: Notable medial distal tuft fracture of the distal phalanx with slight displacement Real Og DPM IMG XR PROCEDURES Final Res ult * (ABNORMAL) POCT Glycated hemoglobin, total (09/17/2024 [...] ORDERABLES Final Res ult Performing Organization Address City/State/[facility] Co de Phone Number [facility] from Last 3 Months or Most Recently Relevant to Health Maintenance Insurance MEDICARE AAR Care Teams Gauge And Weigh Machine Operator Relationship Specialty Start Date End Date Beni Nguyen MD [address] [address] PCP - General Internal Medicine 01/02/23 Beni Nguyen MD [address] [facility] 110 [place] [address] PCP - ACO Reach 01/12/23 Anastasia Rayo LPN [address] [address] 11/08/24
--- OUTSIDE RECORDS SUMMARY | 2025-02-12 14:17 | XMS_ITS | Encounter Summary ---
Author Organization [facility] Address [address] [place] [address] Care Team Providers Care Supervisor Core Drilling Name Role Phone Beni Nguyen MD Primary Care Provider [phone] Beni Nguyen MD Unavailable [phone] Esther Connolly RN Unavailable Anastasia Rayo LPN Unavailable Encounter Details Date Type Department Care Team (Late st Contact Info) Description 01/31/2024 Abstract [facility] [address] [facility] 110 [place] [address] Beni Nguyen MD 112 [facility] 110 [place], [place] [id number] Social History Tobacco Use Types Packs/Day Years [...] often do you attend chur ch or lutheran services? Never 03/17/2023 Do you belong to any clubs o r organizations such as jewish groups, unions, fraternal or athletic groups, or [...] Patient Health Questionnaire-2 Score 0 10/05/2023 [facility] Questionnaire Answer Date Recorded [...] Visit [facility] [address] [facility] 120 [place] [address] Real Og DPM [address]006 [facility] [place] [address] documented as of this encounter Visit Diagnoses Not on filedocumented in this encounter Care Teams Supervisor Core Drilling Relationship Specialty Start Date End Date Beni Nguyen MD [address] [facility] 110 [place] [address] PCP - General Internal Medicine 01/02/23 Beni Nguyen MD [address] [facility] [address] [place] [address] PCP - ACO Reach 01/12/23 Esther Connolly, RN [address] [place] [address] Clinical [facility] 09/27/24 11/08/24 Anastasia Rayo LPN 112 [facility] 110 [place] [address] 11/08/24 documented as of this encounter
--- OUTSIDE RECORDS SUMMARY | 2025-02-12 14:17 | XMS_ITS | Encounter Summary ---
Author Organization [facility] Address [address] [place] [address] Care Team Providers Care Vehicle Painter Name Role Phone Beni Nguyen MD Primary Care Provider [phone] Beni Nguyen MD Unavailable [phone] Esther Connolly RN Unavailable Anastasia Rayo LPN Unavailable Encounter Details Date Type Department Care Team (Late st Contact Info) Description 05/23/2023 Abstract [facility] [address] [facility] 110 [place] [address] Beni Nguyen MD 112 [facility] 110 [place], [place] [id number] Social History Tobacco Use Types Packs/Day Years [...] and heating? Not hard at all 03/17/2023 [facility] - [...] EDT Procedure Visit [facility] 112 [facility] 120 [place] [address] Real Og, DPM 3006 [facility] 5 [place] [address] documented as of this encounter Visit Diagnoses Not on filedocumented in this encounter Care Teams Vehicle Painter Relationship Specialty Start Date End Date Beni Nguyen MD [address] [facility] 110 [place] [address] PCP - General Internal Medicine 01/02/23 Beni Nguyen MD [address] [facility] 110 [place] [address] PCP - ACO Reach 01/12/23 Esther Connolly, HEATHER [address] [place] [address] Clinical [facility] 09/27/24 11/08/24 Anastasia Rayo LPN 112 [place] [address] 11/08/24 documented as of this encounter
--- OUTSIDE RECORDS SUMMARY | 2025-02-12 14:17 | XMS_ITS | Encounter Summary ---
Author Organization [facility] Address [address] [facility] [place] [address] Care Team Providers Care Power Distributor Name Role Phone Beni Nguyen MD Primary Care Provider Beni Nguyen MD Unavailable [phone] Esther Connolly RN Unavailable Anastasia Rayo LPN Unavailable Encounter Details Date Type Department Care Team (Late st Contact Info) Description 06/24/2024 Abstract [facility] 112 [facility] 110 [place] [address] Beni Nguyen MD 112 [facility] 110 [place], [place] [id number] Social History Tobacco Use Types Packs/Day Years [...] Recorded Patient Health Questionnaire-2 Score 0 10/05/2023 [facility]at ional Health [...] Upcoming Encounters Date Type Department Care Team ([facility] Contact Info) Description 04/10/2025 3:10 PM EDT Procedure Visit [facility] [address] [facility] 120 [place] [address] Real Og DPM 3006 [facility] 5 [place] [address] documented as of this encounter Visit Diagnoses Not on filedocumented in this encounter Care Teams Power Distributor Relationship Specialty Start Date End Date Beni Nguyen MD [address] [facility] 110 [place] [address] PCP - General Internal Medicine 01/02/23 Beni Nguyen MD [address] [facility] 110 [place] [address] PCP - ACO Reach 01/12/23 Esther Connolly, RN [address] [place] [address] Clinical [facility] 09/27/24 11/08/24 Anastasia Rayo LPN [address] [facility] 110 [place] [address] 11/08/24 documented as of this encounter
--- OUTSIDE RECORDS SUMMARY | 2025-02-12 14:17 | XMS_ITS | Encounter Summary ---
Author Organization [facility] Address [address] [place] [address] Care Team Providers Care Press Shop Supervisor Name Role Phone Beni Nguyen MD Primary Care Provider [phone] Beni Nguyen MD Unavailable [phone] Esther Connolly RN Unavailable Anastasia Rayo LPN Unavailable Encounter Details Date Type Department Care Team (Late st Contact Info) Description 06/29/2023 Abstract [facility] [address] [facility] 110 [place] [address] Beni Nguyen MD 112 [facility] 110 [place], [place] [id number] Social History Tobacco Use Types Packs/Day Years [...] any clubs o r organizations such as episcopalian groups, unions, fraternal or athletic groups, or [...] and heating? Not hard at all 03/17/2023 [facility]at ional Health - [...] [facility] 120 [place] [address] Real Og, DPM [facility] 5 [place] [address] documented as of this encounter Visit Diagnoses Not on filedocumented in this encounter Care Teams Press Shop Supervisor Relationship Specialty Start Date End Date Beni Nguyen MD [address] [facility] 110 [place] [address] PCP - General Internal Medicine 01/02/23 Beni Nguyen MD [address] [facility] 110 [place] [address] PCP - ACO Reach 01/12/23 Esther Connolly, HEATHER [address] [place] [address] Clinical [facility] 09/27/24 11/08/24 Anastasia Rayo LPN 112 [place] [address] 11/08/24 documented as of this encounter
--- OUTSIDE RECORDS SUMMARY | 2025-02-12 14:17 | XMS_ITS | Encounter Summary ---
Author Organization [facility] Address [address] [place] [address] Care Team Providers Care Technology Director Name Role Phone Beni Nguyen MD Primary Care Provider Beni Nguyen MD Unavailable [phone] Esther Connolly RN Unavailable [phone] Anastasia Rayo LPN Unavailable Encounter Details Date Type Department Care Team (Late st Contact Info) Description 09/01/2023 Abstract [facility] [address] [facility] 110 [place] [address] Beni Nguyen MD 112 [facility] 110 [place], [place] [address] Social History Tobacco Use Types Packs/Day Years [...] any clubs o r organizations such as yazidi groups, unions, fraternal or athletic groups, or [...] heating? Not hard at all 03/17/2023 [facility] Occupat ional Health - [...] Procedure Visit [facility] 112 [facility] 120 [place] [address] Real Og, DPM 3006 [facility] 5 [place] [address] documented as of this encounter Visit Diagnoses Not on filedocumented in this encounter Care Teams Technology Director Relationship Specialty Start Date End Date Beni Nguyen MD [address] [facility] 110 [place] [address] PCP - General Internal Medicine 01/02/23 Beni Nguyen MD [address] [facility] 110 [place] [address] PCP - ACO Reach 01/12/23 Esther Connolly, HEATHER [address] [place] [address] Clinical [facility] 09/27/24 11/08/24 Anastasia Rayo LPN 112 [place] [address] 11/08/24 documented as of this encounter
--- OUTSIDE RECORDS SUMMARY | 2025-02-12 14:17 | XMS_ITS | Encounter Summary ---
Author Organization [facility] Address [address] [place] [address] Care Team Providers Care Fur Ironer Name Role Phone Beni Nguyen MD Primary Care Provider [phone] Beni Nguyen MD Unavailable [phone] Esther Connolly RN Unavailable Anastasia Rayo LPN Unavailable Encounter Details Date Type Department Care Team (Late st Contact Info) Description 07/26/2023 Abstract [facility] [address] [facility] 110 [place] [address] Beni Nguyen MD 112 [facility] 110 [place], [place] [id number] Social History Tobacco Use Types Packs/Day Years [...] any clubs o r organizations such as muslim groups, unions, fraternal or athletic groups, or [...] [facility] 112 [facility] 120 [place] [address] Real Og, DPM 3006 [facility] 5 [place] [address] documented as of this encounter Visit Diagnoses Not on filedocumented in this encounter Care Teams Fur Ironer Relationship Specialty Start Date End Date Beni Nguyen MD [address] [facility] 110 [place] [address] PCP - General Internal Medicine 01/02/23 Beni Nguyen MD [address] [facility] 110 [place] [address] PCP - ACO Reach 01/12/23 Esther Connolly, HEATHER [address] [place] [address] [facility] 09/27/24 11/08/24 Anastasia Rayo LPN 112 [place] [address] 11/08/24 documented as of this encounter
--- OUTSIDE RECORDS SUMMARY | 2025-02-12 14:17 | XMS_ITS | Encounter Summary ---
Author Organization [facility] Address [address] [place] [address] Care Team Providers Care Automatic Lump Making Machine Tender Name Role Phone Beni Nguyen MD Primary Care Provider [phone] Beni Nguyen MD Unavailable [phone] Esther Connolly RN Unavailable Anastasia Rayo LPN Unavailable Encounter Details Date Type Department Care Team (Late st Contact Info) Description 08/23/2023 Abstract [facility] [address] [facility] 110 [place] [address] Beni Nguyen MD [address] [facility] 110 [place], [place] [address] Social History Tobacco Use Types Packs/Day Years [...] often do you attend chur ch or scientologist services? Never 03/17/2023 Do you [...] PODIATRY 112 [facility] 120 [place] [address] Real Og, DPM 3006 [facility] 5 [place] [address] documented as of this encounter Visit Diagnoses Not on filedocumented in this encounter Care Teams Automatic Lump Making Machine Tender Relationship Specialty Start Date End Date Beni Nguyen MD [address] [facility] 110 [place] [address] PCP - General Internal Medicine 01/02/23 Beni Nguyen MD [address] [facility] 110 [place] [address] PCP - ACO Reach 01/12/23 Esther Connolly, HEATHER [address] [place] [address] [facility] 09/27/24 11/08/24 Anastasia Rayo LPN 112 [place] [address] 11/08/24 documented as of this encounter
--- OUTSIDE RECORDS SUMMARY | 2025-02-12 14:17 | XMS_ITS | Encounter Summary ---
Author Organization [facility] Address [address] [place] [address] Care Team Providers Care Auto Damage Appraiser Name Role Phone Beni Nguyen MD Primary Care Provider [phone] Beni Nguyen MD Unavailable [phone] Esther Connolly RN Unavailable [phone] Anastasia Rayo LPN Unavailable Encounter Details Date Type Department Care Team (Late st Contact Info) Description 07/18/2023 Abstract [facility] 112 INDEP[address] [facility] 110 [place] [address] Beni Nguyen MD 112 [facility] 110 [place], [place] [id number] Social History Tobacco Use Types Packs/Day Years [...] CI PODIATRY 112 [facility] 120 [place] [address] Real gO, DPM 3006 [facility] 5 [place] [address] documented as of this encounter Visit Diagnoses Not on filedocumented in this encounter Care Teams Auto Damage Appraiser Relationship Specialty Start Date End Date Beni Nguyen MD [address] [facility] 110 [place] [address] PCP - General Internal Medicine 01/02/23 Beni Nguyen MD [address] [facility] 110 [place] [address] PCP - ACO Reach 01/12/23 Esther Connolly, HEATHER [address] [place] [address] Clinical Advocate Family Medicine 09/27/24 11/08/24 Anastasia Rayo LPN 112 [place] [address] 11/08/24 documented as of this encounter
--- OUTSIDE RECORDS SUMMARY | 2025-02-12 14:17 | XMS_ITS | Encounter Summary ---
Author Organization [facility] Address [address] [place] [address] Care Team Providers Care Railcar Mechanic Name Role Phone Beni Nguyen MD Primary Care Provider [phone] Beni Nguyen MD Unavailable [phone] Esther Connolly RN Unavailable [phone] Anastasia Rayo LPN Unavailable Encounter Details Date Type Department Care Team (Late st Contact Info) Description 01/31/2024 Abstract [facility] FM 112 IN[address] [facility] 110 [place] [address] Beni Nguyen MD 112 [facility] 110 [place], [place] [id number] Social History Tobacco Use Types Packs/Day Years [...] often do you attend chur ch or sabianist services? Never 03/17/2023 Do you [...] Recorded Patient Health Questionnaire-2 Score 0 10/05/2023 [facility] Questionnaire Answer Date Recorded [...] WAY [facility] 120 [place] [address] Real Og DPM 3006 [facility] 5 [place] [address] documented as of this encounter Visit Diagnoses Not on filedocumented in this encounter Care Teams Railcar Mechanic Relationship Specialty Start Date End Date Beni Nguyen MD [address] [facility] 110 [place] [address] PCP - General Internal Medicine 01/02/23 Beni Nguyen MD [address] [facility] [address] [place] [address] PCP - ACO Reach 01/12/23 Esther Connolly, RN [address] [place] [address] Clinical Advocate Family Medicine 09/27/24 11/08/24 Anastasia Rayo LPN 112 [facility] 110 [place] [address] 11/08/24 documented as of this encounter
--- OUTSIDE RECORDS SUMMARY | 2025-02-12 14:17 | XMS_ITS | Encounter Summary ---
Author Organization [facility] Address [address] [place] [address] Care Team Providers Care Knot Picker Cloth Name Role Phone Beni Nguyen MD Primary Care Provider [phone] Beni Nguyen MD Unavailable [phone] Esther Connolly RN Unavailable [phone] Anastasia Rayo LPN Unavailable Encounter Details Date Type Department Care Team (Late st Contact Info) Description 06/12/2023 Abstract [facility] FM 112 [address] [facility] 110 [place] [address] Beni Nguyen MD 112 [facility] 110 [place], [place] [id number] Social History Tobacco Use Types Packs/Day Years [...] PODIATRY 112 [facility] 120 [place] [address] Real Og, DPM 3006 [facility] 5 [place] [address] documented as of this encounter Visit Diagnoses Not on filedocumented in this encounter Care Teams Knot Picker Cloth Relationship Specialty Start Date End Date Beni Nguyen MD [address] [facility] 110 [place] [address] PCP - General Internal Medicine 01/02/23 Beni Nguyen MD [address] [facility] 110 [place] [address] PCP - ACO Reach 01/12/23 Esther Connolly, HEATHER [address] [place] [address] Clinical Advocate Family Medicine 09/27/24 11/08/24 Anastasia Rayo LPN 112 [place] [address] 11/08/24 documented as of this encounter
--- OUTSIDE RECORDS SUMMARY | 2025-02-12 14:17 | XMS_ITS | Encounter Summary ---
Author Organization [facility] Address [address] [place] [address] Care Team Providers Care Hard Metals Hand Engraver Name Role Phone Beni Nguyen MD Primary Care Provider [phone] Beni Nguyen MD Unavailable [phone] Esther Connolly RN Unavailable [phone] Anastasia Rayo LPN Unavailable Encounter Details Date Type Department Care Team (Late st Contact Info) Description 06/20/2024 Abstract [facility] 112 [facility] 110 [place] [address] Beni Nguyen MD 112 [facility] 110 [place], [place] [id number] Social History Tobacco Use Types Packs/Day Years [...] How often do you attend chur or confucianist services? Never 03/17/2023 Do you [...] Upcoming Encounters Date Type Department Care Team ([facility] Contact Info) Description 04/10/2025 3:10 PM EDT Procedure Visit [facility] PODIATRY 112 INDEP[address] [facility] 120 [place] [address] Real Og DPM 3006 [facility] 5 [place] [address] documented as of this encounter Visit Diagnoses Not on filedocumented in this encounter Care Teams Hard Metals Hand Engraver Relationship Specialty Start Date End Date Beni Nguyen MD [address] [facility] 110 [place] [address] PCP - General Internal Medicine 01/02/23 Beni Nguyen MD [address] [facility] 110 [place] [address] PCP - ACO Reach 01/12/23 Esther Connolly, RN [address] [place] [address] Clinical Advocate Family Medicine 09/27/24 11/08/24 Anastasia Rayo LPN [address] [facility] 110 [place] [address] 11/08/24 documented as of this encounter
--- OUTSIDE RECORDS SUMMARY | 2025-02-12 14:17 | XMS_ITS | Encounter Summary ---
Author Organization [facility] Address [address] [place] [address] Care Team Providers Care Irs Agent Name Role Phone Beni Nguyen MD Primary Care Provider [phone] Beni Nguyen MD Unavailable [phone] Esther Connolly RN Unavailable Anastasia Rayo LPN Unavailable Encounter Details Date Type Department Care Team (Late st Contact Info) Description 07/07/2023 Abstract [facility] FM 112 [address] [facility] 110 [place] [address] Beni Nguyen MD 112 [facility] 110 [place], [place] [address] Social History Tobacco Use Types Packs/Day Years [...] and heating? Not hard at all 03/17/2023 [facility] Occupat ional Health - Occupational [...] CI PODIATRY 112 [facility] 120 [place] [address] Real Og, DPM 3006 [facility] 5 [place] [address] documented as of this encounter Visit Diagnoses Not on filedocumented in this encounter Care Teams Irs Agent Relationship Specialty Start Date End Date Beni Nguyen MD [address] [facility] 110 [place] [address] PCP - General Internal Medicine 01/02/23 eBni Nguyen MD 112 [facility] 110 [place] [address] PCP - ACO Reach 01/12/23 Esther Connolly, HEATHER [address] [place] [address] Clinical Advocate Family Medicine 09/27/24 11/08/24 Anastasia Rayo LPN 112 [place] [address] 11/08/24 documented as of this encounter
--- OUTSIDE RECORDS SUMMARY | 2025-02-12 14:17 | XMS_ITS | Encounter Summary ---
Author Organization [facility] Address [address] [facility] [place] [address] Care Team Providers Care Loom Operator Apprentice Name Role Phone Beni Nguyen MD Primary Care Provider [phone] Beni Nguyen MD Unavailable [phone] Esther Connolly RN Unavailable [phone] Anastasia Rayo LPN Unavailable Encounter Details Date Type Department Care Team (Late st Contact Info) Description 06/24/2024 Abstract [facility] FM 112 [facility] 110 [place] [address] Beni Nguyen MD 112 [facility] 110 [place], [place] [phone] Social History Tobacco Use Types Packs/Day Years [...] How often do you attend chur or yazidi services? Never 03/17/2023 Do you [...] Recorded Patient Health Questionnaire-2 Score 0 10/05/2023 [facility] of Occupat ional Health - [...] Team ([facility] Contact Info) Description 04/10/2025 3:10 PM EDT Procedure Visit [facility] CI PODIATRY 112 [address] [facility] 120 [place] [address] Real Og DPM 3[address] [facility] 5 [place] [address] documented as of this encounter Visit Diagnoses Not on filedocumented in this encounter Care Teams Loom Operator Apprentice Relationship Specialty Start Date End Date Beni Nguyen MD [address] [facility] 110 [place] [address] PCP - General Internal Medicine 01/02/23 Beni Nguyen MD [address] [facility] 110 [place] [address] PCP - ACO Reach 01/12/23 Esther Connolly, RN [address] [place] [address] Clinical Advocate Family Medicine 09/27/24 11/08/24 Anastasia Rayo LPN [address] [facility] 110 [place] [address] 11/08/24 documented as of this encounter
--- OUTSIDE RECORDS SUMMARY | 2025-02-12 14:17 | XMS_ITS | Encounter Summary ---
Author Organization [facility] Address [address] [place] [address] Care Team Providers Care Wastewater Project Manager Name Role Phone Beni Nguyen MD Primary Care Provider [phone] Beni Nguyen MD Unavailable [phone] Esther Connolly RN Unavailable [phone] Anastasia Rayo LPN Unavailable Encounter Details Date Type Department Care Team (Late st Contact Info) Description 08/04/2023 Abstract [facility] FM 112 [address] [facility] 110 [place] [address] Beni Nguyen MD 112 [facility] 110 [place], [place] [phone] Social History Tobacco Use Types Packs/Day Years [...] any clubs o r organizations such as taoist groups, unions, fraternal or athletic groups, or [...] heating? Not hard at all 03/17/2023 [facility] of Occupat ional Health [...] CI PODIATRY 112 [facility] 120 [place] [address] Real Og, DPM 3006 [facility] 5 [place] [address] documented as of this encounter Visit Diagnoses Not on filedocumented in this encounter Care Teams Wastewater Project Manager Relationship Specialty Start Date End Date Beni Nguyen MD [address] [facility] 110 [place] [address] PCP - General Internal Medicine 01/02/23 Beni Nguyen MD [address] [facility] 110 [place] [address] PCP - ACO Reach 01/12/23 Esther Connolly, HEATHER [address] [place] [address] Clinical Advocate Family Medicine 09/27/24 11/08/24 Anastasia Rayo LPN 112 [place] [address] 11/08/24 documented as of this encounter
--- OUTSIDE RECORDS SUMMARY | 2025-02-12 14:18 | XMS_ITS | Encounter Summary ---
Author Organization [facility] Address [address] [facility] [place] [address] Care Team Providers Care Rubber Flap Tuber Machine Operator Name Role Phone Beni Nguyen MD Primary Care Provider [phone] Beni Nguyen MD Unavailable [phone] Esther Connolly RN Unavailable Anastasia Rayo LPN Unavailable Encounter Details Date Type Department Care Team (Late st Contact Info) Description 07/10/2024 Abstract [facility] FM 112 [facility] 110 [place] [address] Beni Nguyen MD 112 [facility] 110 [place], [place] [phone] Social History Tobacco Use Types Packs/Day Years [...] Recorded Patient Health Questionnaire-2 Score 0 10/05/2023 [facility] of Occupat ional Health - Occupational [...] Upcoming Encounters Date Type Department Care Team ([facility] Contact Info) Description 04/10/2025 3:10 PM EDT Procedure Visit [facility] PODIATRY 112 IN[address] [facility] 120 [place] [address] Real Og DPM 3006 [facility] 5 [place] [address] documented as of this encounter Visit Diagnoses Not on filedocumented in this encounter Care Teams Rubber Flap Tuber Machine Operator Relationship Specialty Start Date End Date Beni Nguyen MD [address] [facility] 110 [place] [address] PCP - General Internal Medicine 01/02/23 Beni Nguyen MD [address] [facility] 110 [place] [address] PCP - ACO Reach 01/12/23 Esther Connolly, RN [address] [place] [address] Clinical Advocate Family Medicine 09/27/24 11/08/24 Anastasia Rayo LPN [address] [facility] 110 [place] [address] 11/08/24 documented as of this encounter
--- OUTSIDE RECORDS SUMMARY | 2025-02-12 14:18 | XMS_ITS | Encounter Summary ---
Author Organization [facility] Address [address] [facility] [place] [address] Care Team Providers Care Editor Map Name Role Phone Beni Nguyen MD Primary Care Provider [phone] Beni Nguyen MD Unavailable [phone] Esther Connolly RN Unavailable [phone] Anastasia Rayo LPN Unavailable Encounter Details Date Type Department Care Team (Late st Contact Info) Description 07/24/2024 Abstract [facility] FM 112 [facility] 110 [place] [address] Beni Nguyen MD 112 [facility] 110 [place], [place] [phone] Social History Tobacco Use Types Packs/Day Years [...] How often do you attend chur or oriental orthodox services? Never 03/17/2023 Do [...] Recorded Patient Health Questionnaire-2 Score 0 10/05/2023 [facility] of Occupat ional Health [...] Upcoming Encounters Date Type Department Care Team ([facility] Contact Info) Description 04/10/2025 3:10 PM EDT Procedure Visit [facility] PODIATRY 112 INDEP[address] [facility] 120 [place] [address] Real Og DPM 3006 [facility] 5 [place] [address] documented as of this encounter Visit Diagnoses Not on filedocumented in this encounter Care Teams Editor Map Relationship Specialty Start Date End Date Beni Nguyen MD [address] [facility] 110 [place] [address] PCP - General Internal Medicine 01/02/23 Beni Nguyen MD [address] [facility] 110 [place] [address] PCP - ACO Reach 01/12/23 Esther Connolly, RN [address] [place] [address] Clinical Advocate Family Medicine 09/27/24 11/08/24 Anastasia Rayo LPN [address] [facility] 110 [place] [address] 11/08/24 documented as of this encounter
--- OUTSIDE RECORDS SUMMARY | 2025-02-12 14:18 | XMS_ITS | Encounter Summary ---
Author Organization [facility] Address [address] [place] [address] Care Team Providers Care Diver Tender Name Role Phone Beni Nguyen MD Primary Care Provider [phone] Beni Nguyen MD Unavailable Anastasia Rayo LPN Unavailable Encounter Details Date Type Department Care Team ([facility] st Contact Info) Description 01/30/2025 Bamboo flowsheet [facility] PODIATRY 112 [facility] 120 [place] [address] Real Og, DPM 3005 [facility] 5 [place] [address] Social History Tobacco Use Types Packs/Day Years [...] any clubs o r organizations such as confucianist groups, unions, fraternal or athletic groups, or [...] Recorded Patient Health Questionnaire-2 Score 0 12/05/2024 [facility] of Occupat ional [...] PODIATRY 112 [facility] 120 [place] [address] Real Og DPM 3006 [facility] 5 [place] [address] documented as of this encounter Visit Diagnoses Not on filedocumented in this encounter Care Teams Diver Tender Relationship Specialty Start Date End Date Beni Nguyen MD 112 [facility] 110 [place] [address] PCP - General Internal Medicine 01/02/23 Beni Nguyen MD 112 [facility] 110 [place] [address] PCP - ACO Reach 01/12/23 Anastasia Rayo LPN 112 [facility] 110 [place] [address] 11/08/24 documented as of this encounter
--- OUTSIDE RECORDS SUMMARY | 2025-02-12 14:18 | XMS_ITS | Encounter Summary ---
Author Organization [facility] Address [address] [place] [place] [address] Care Team Providers Care Hide Splitter Name Role Phone Beni Nguyen MD Primary Care Provider [phone] Beni Nguyen MD Unavailable [phone] Esther Connolly RN Unavailable Anastasia Rayo LPN Unavailable Encounter Details Date Type Department Care Team (Late st Contact Info) Description 08/01/2024 Abstract [facility] FM 112 [facility] 110 [place] [address] Beni Nguyen MD 112 [facility] 110 [place], [place] [address] Social History Tobacco Use Types Packs/Day Years [...] How often do you attend chur or yarsani services? Never 03/17/2023 Do you [...] Recorded Patient Health Questionnaire-2 Score 0 10/05/2023 [facility] of Occupat [...] Upcoming Encounters Date Type Department Care Team ([facility] Contact Info) Description 04/10/2025 3:10 PM EDT Procedure Visit [facility] CI PODIATRY 112 [address] [facility] 120 [place] [address] Real Og DPM 3006 [facility] 5 [place] [address] documented as of this encounter Visit Diagnoses Not on filedocumented in this encounter Care Teams Hide Splitter Relationship Specialty Start Date End Date Beni Nguyen MD [address] [facility] 110 [place] [address] PCP - General Internal Medicine 01/02/23 Beni Nguyen MD [address] [facility] 110 [place] [address] PCP - ACO Reach 01/12/23 Esther Connolly, RN [address] [place] [address] Clinical Advocate Family Medicine 09/27/24 11/08/24 Anastasia Rayo LPN [address] [facility] 110 [place] [address] 11/08/24 documented as of this encounter
--- OUTSIDE RECORDS SUMMARY | 2025-02-12 14:18 | XMS_ITS | Encounter Summary ---
Author Organization [facility] Address [address] [facility] [place] [address] Care Team Providers Care Outside Sales Manager Name Role Phone Beni Nguyen MD Primary Care Provider Beni Nguyen MD Unavailable [phone] Esther Connolly RN Unavailable [phone] Anastasia Rayo LPN Unavailable Encounter Details Date Type Department Care Team (Late st Contact Info) Description 07/10/2024 Abstract [facility] FM 112 [facility] 110 [place] [address] Beni Nguyen MD 112 [facility] 110 [place], [place] [phone] Social History Tobacco Use Types Packs/Day Years [...] How often do you attend chur or anabaptist services? Never 03/17/2023 Do you [...] Recorded Patient Health Questionnaire-2 Score 0 10/05/2023 [facility] of Occupat ional Health - [...] Upcoming Encounters Date Type Department Care Team ([facility] Contact Info) Description 04/10/2025 3:10 PM EDT Procedure Visit [facility] CI PODIATRY 112 [address] [facility] 120 [place] [address] Real Og DPM 3006 [facility] 5 [place] [address] documented as of this encounter Visit Diagnoses Not on filedocumented in this encounter Care Teams Outside Sales Manager Relationship Specialty Start Date End Date Beni Nguyen MD [address] [facility] 110 [place] [address] PCP - General Internal Medicine 01/02/23 Beni Nguyen MD [address] [facility] 110 [place] [address] PCP - ACO Reach 01/12/23 Esther Connolly, RN [address] [place] [address] Clinical Advocate Family Medicine 09/27/24 11/08/24 Anastasia Rayo LPN [address] [facility] 110 [place] [address] 11/08/24 documented as of this encounter
--- OUTSIDE RECORDS SUMMARY | 2025-02-12 14:18 | XMS_ITS | Encounter Summary ---
Author Organization [facility] Address [address] [place] [address] Care Team Providers Care C D Stripper Name Role Phone Beni Nguyen MD Primary Care Provider [phone] Beni Nguyen MD Unavailable [phone] Esther Connolly RN Unavailable [phone] Anastasia Rayo LPN Unavailable Encounter Details Date Type Department Care Team (Late st Contact Info) Description 07/11/2024 Abstract [facility] FM 112 [facility] 110 [place] [address] Beni Nguyen MD 112 [facility] 110 [place], [place] [address] Social History Tobacco Use Types Packs/Day Years [...] How often do you attend chur or alevism services? Never 03/17/2023 Do you belong to any clubs o r organizations such as baptism groups, unions, fraternal or athletic groups, or [...] Upcoming Encounters Date Type Department Care Team ([facility] Contact Info) Description 04/10/2025 3:10 PM EDT Procedure Visit [facility] PODIATRY 112 [address] [facility] 120 [place] [address] Real Og DPM 3006 [facility] 5 [place] [address] documented as of this encounter Visit Diagnoses Not on filedocumented in this encounter Care Teams C D Stripper Relationship Specialty Start Date End Date Beni Nguyen MD [address] [facility] 110 [place] [address] PCP - General Internal Medicine 01/02/23 Beni Nguyen MD [address] [facility] 110 [place] [address] PCP - ACO Reach 01/12/23 Esther Connolly, RN [address] [place] [address] Clinical Advocate Family Medicine 09/27/24 11/08/24 Anastasia Rayo LPN [address] [facility] 110 [place] [address] 11/08/24 documented as of this encounter
--- OUTSIDE RECORDS SUMMARY | 2025-02-12 14:18 | XMS_ITS | Encounter Summary ---
Author Organization [facility] Address [address] [facility] [place] [address] Care Team Providers Care Park Interpretive Specialist Name Role Phone Beni Nguyen MD Primary Care Provider [phone] Beni Nguyen MD Unavailable [phone] Esther Connolly RN Unavailable [phone] Anastasia Rayo LPN Unavailable Encounter Details Date Type Department Care Team (Late st Contact Info) Description 07/30/2024 Abstract [facility] 112 [facility] 110 [place] [address] Beni Nguyen MD 112 [facility] 110 [place], [place] [address] Social History Tobacco Use Types Packs/Day Years [...] How often do you attend chur or orthodoxy services? Never 03/17/2023 Do you [...] Upcoming Encounters Date Type Department Care Team ([facility] Contact Info) Description 04/10/2025 3:10 PM EDT Procedure Visit [facility] [address] [facility] 120 [place] [address] Real Og DPM 3006 [facility] 5 [place] [address] documented as of this encounter Visit Diagnoses Not on filedocumented in this encounter Care Teams Park Interpretive Specialist Relationship Specialty Start Date End Date Beni Nguyen MD [address] [facility] 110 [place] [address] PCP - General Internal Medicine 01/02/23 Beni Nguyen MD [address] [facility] 110 [place] [address] PCP - ACO Reach 01/12/23 Esther Connolly, RN [address] [place] [address] Clinical Advocate Family Medicine 09/27/24 11/08/24 Anastasia Rayo LPN [address] [facility] 110 [place] [address] 11/08/24 documented as of this encounter
--- OUTSIDE RECORDS SUMMARY | 2025-02-12 14:18 | XMS_ITS | Encounter Summary ---
Author Organization [facility] Address [address] [facility] [place] [address] Care Team Providers Care Beef Splitter Name Role Phone Beni Nguyen MD Primary Care Provider [phone] Beni Nguyen MD Unavailable [phone] Esther Connolly RN Unavailable Anastasia Rayo LPN Unavailable Encounter Details Date Type Department Care Team (Late st Contact Info) Description 07/26/2024 Abstract [facility] 112 [facility] 110 [place] [address] Beni Nguyen MD 112 [facility] 110 [place], [place] [address] Social History Tobacco Use Types Packs/Day Years [...] How often do you attend chur or spiritism services? Never 03/17/2023 Do you belong to any clubs o r organizations such as pentecostalism groups, unions, fraternal or athletic groups, or [...] Procedure Visit [facility] [address] [facility] 120 [place] [address] Real Og DPM 3006 [facility] 5 [place] [address] documented as of this encounter Visit Diagnoses Not on filedocumented in this encounter Care Teams Beef Splitter Relationship Specialty Start Date End Date Beni Nguyen MD [address] [facility] 110 [place] [address] PCP - General Internal Medicine 01/02/23 Beni Nguyen MD [address] [facility] 110 [place] [address] PCP - ACO Reach 01/12/23 Esther Connolly, RN [address] [place] [address] Clinical Advocate Family Medicine 09/27/24 11/08/24 Anastasia Rayo LPN 112 [facility] 110 [place] [address] 11/08/24 documented as of this encounter
--- OUTSIDE RECORDS SUMMARY | 2025-02-12 14:18 | XMS_ITS | Encounter Summary ---
Author Organization [facility] Address [address] [facility] [place] [address] Care Team Providers Care Air Traffic Control Supervisor Name Role Phone Beni Nguyen MD Primary Care Provider [phone] Beni gNuyen MD Unavailable [phone] Esther Connolly RN Unavailable Anastasia Rayo LPN Unavailable Encounter Details Date Type Department Care Team (Late st Contact Info) Description 07/29/2024 Abstract [facility] 112 [facility] 110 [place] [address] Beni Nguyen MD 112 [facility] 110 [place], [place] [address] Social History Tobacco Use Types Packs/Day Years [...] How often do you attend chur or restoration services? Never 03/17/2023 Do you belong to [...] Recorded Patient Health Questionnaire-2 Score 0 10/05/2023 [facility] of Occupat ional [...] Care Team ([facility] Contact Info) Description 04/10/2025 3:10 PM EDT Procedure Visit [facility] [address] [facility] 120 [place] [address] Real Og DPM 3006 [facility] 5 [place] [address] documented as of this encounter Visit Diagnoses Not on filedocumented in this encounter Care Teams Air Traffic Control Supervisor Relationship Specialty Start Date End Date Beni Nguyen MD [address] [facility] 110 [place] [address] PCP - General Internal Medicine 01/02/23 Beni Nguyen MD [address] [facility] 110 [place] [address] PCP - ACO Reach 01/12/23 Esther Connolly, RN [address] [place] [address] Clinical Advocate Family Medicine 09/27/24 11/08/24 Anastasia Rayo LPN [address] [facility] 110 [place] [address] 11/08/24 documented as of this encounter
--- OUTSIDE RECORDS SUMMARY | 2025-02-12 14:18 | XMS_ITS | Encounter Summary ---
Author Organization [facility] Address [address] [place] [address] Care Team Providers Care Commercial Marketing Specialist Name Role Phone Beni Nguyen MD Primary Care Provider [phone] Beni Nguyen MD Unavailable [phone] Anastasia Rayo LPN Unavailable Encounter Details Date Type Department Care Team (Late st Contact Info) Description 01/23/2025 Abstract [facility] 112 [address] [facility] 110 [place] [address] Beni Nguyen MD 112 [facility] 110 [place] [address] Social History Tobacco Use Types Packs/Day Years [...] How often do you attend chur or judaism services? Never 03/17/2023 Do you [...] Recorded Patient Health Questionnaire-2 Score 0 12/05/2024 [facility]at [facility] - [...] Upcoming Encounters Date Type Department Care Team ([facility] Contact Info) Description 04/10/2025 3:10 PM EDT Procedure Visit [facility] [address] [facility] 120 [place] [address] Real Og DPM 3006 [facility] 5 [place] [address] documented as of this encounter Visit Diagnoses Not on filedocumented in this encounter Care Teams Commercial Marketing Specialist Relationship Specialty Start Date End Date Beni Nguyen MD [address] [facility] 110 [place] [address] PCP - General Internal Medicine 01/02/23 Beni Nguyen MD [address] [facility] 110 [place] [address] PCP - ACO Reach 01/12/23 Anastasia Rayo LPN 112 [facility] 110 [place] [address] 11/08/24 documented as of this encounter
--- OUTSIDE RECORDS SUMMARY | 2025-02-12 14:18 | XMS_ITS | Encounter Summary ---
Author Organization [facility] Address [address] [place] [address] Care Team Providers Care Vocational Rehabilitation Consultant Name Role Phone Beni Nguyen MD Primary Care Provider [phone] Beni Nguyen MD Unavailable [phone] Anastasia Rayo LPN Unavailable Encounter Details Date Type Department Care Team (Latest Contact Info) Description 01/30/2025 Travel Social History Tobacco Use Types Packs/Day [...] often do you attend chur ch or holiness services? Never 03/17/2023 Do you belong to any clubs o r organizations such as gnosticism groups, unions, fraternal or athletic groups, or [...] Recorded Patient Health Questionnaire-2 Score 0 12/05/2024 [facility] of Occupat ional Health - [...] [facility] st Contact Info) Description 04/10/2025 3:10 PM EDT Procedure Visit [facility] [address] [facility] 120 [place] [address] Real Og, DPMarcial 3006 [facility] 5 [place] [address] documented as of this encounter Visit Diagnoses Not on filedocumented in this encounter Care Teams Vocational Rehabilitation Consultant Relationship Specialty Start Date End Date Beni Nguyen MD [address] [facility] 110 [place] [address] PCP - General Internal Medicine 01/02/23 Beni Nguyen MD [address] [facility] 110 [place] [address] PCP - ACO Reach 01/12/23 Anastasia Rayo LPN [address] [facility] 110 [place] [address] 11/08/24 documented as of this encounter
--- OUTSIDE RECORDS SUMMARY | 2025-02-12 14:18 | XMS_ITS | Encounter Summary ---
Author Organization [facility] Address [address] [facility] [address] Care Team Providers Care Puppet Maker Name Role Phone Beni Nguyen MD Primary Care Provider [phone] Beni Nguyen MD Unavailable [phone] Esther Connolly RN Unavailable Anastasia Rayo LPN Unavailable Encounter Details Date Type Department Care Team (Late st Contact Info) Description 07/08/2024 Abstract [facility] 112 [facility] 110 [place] [address] Beni Nguyen MD 112 [facility] 110 [place], [place] [address] Social History Tobacco Use Types Packs/Day Years [...] How often do you attend chur or islam services? Never 03/17/2023 Do you belong to [...] Recorded Patient Health Questionnaire-2 Score 0 10/05/2023 [facility] of Occupat ional Health - [...] Procedure Visit [facility] [address] [facility] 120 [place] [address] Real Og DPM [address] [facility] 5 [place] [address] documented as of this encounter Visit Diagnoses Not on filedocumented in this encounter Care Teams Puppet Maker Relationship Specialty Start Date End Date Beni Nguyen MD [address] [facility] 110 [place] [address] PCP - General Internal Medicine 01/02/23 Beni Nguyen MD [address] [facility] 110 [place] [address] PCP - ACO Reach 01/12/23 Esther Connolly, RN [address] [place] [address] Clinical Advocate Family Medicine 09/27/24 11/08/24 Anastasia Rayo LPN [address] [place] [facility] 110 [place] [address] 11/08/24 documented as of this encounter
--- OUTSIDE RECORDS SUMMARY | 2025-02-12 14:18 | XMS_ITS | Encounter Summary ---
Author Organization [facility] Address [address] [facility] [place] [address] Care Team Providers Care Metal Tank Builder Name Role Phone Beni Nguyen MD Primary Care Provider [phone] Beni Nguyen MD Unavailable [phone] Esther Connolly RN Unavailable Anastasia Rayo LPN Unavailable Encounter Details Date Type Department Care Team (Late st Contact Info) Description 07/31/2024 Abstract [facility] [address] [facility] 110 [place] [address] Beni Nguyen MD 112 [facility] 110 [place], [place] [address] Social History Tobacco Use Types Packs/Day Years [...] Patient Health Questionnaire-2 Score 0 10/05/2023 [facility] of Occupat ional [...] [facility] Contact Info) Description 04/10/2025 3:10 PM EDT Procedure Visit [facility]OD[facility] [address] [facility] 120 [place] [address] Real Og DPM 3006 [facility] 5 [place] [address] documented as of this encounter Visit Diagnoses Not on filedocumented in this encounter Care Teams Metal Tank Builder Relationship Specialty Start Date End Date Beni Nguyen MD [address] [facility] 110 [place] [address] PCP - General Internal Medicine 01/02/23 Beni Nguyen MD [address] [facility] 110 [place] [address] PCP - ACO Reach 01/12/23 Esther Connolly, RN [address] [place] [address] Clinical Advocate Family Medicine 09/27/24 11/08/24 Anastasia Rayo LPN [address] [facility] 110 [place] [address] 11/08/24 documented as of this encounter
--- OUTSIDE RECORDS SUMMARY | 2025-02-12 14:18 | XMS_ITS | Encounter Summary ---
Author Organization [facility] Address [address] [facility] [place] [address] Care Team Providers Care Business Asst Name Role Phone Beni Nguyen MD Primary Care Provider [phone] Beni Nguyen MD Unavailable [phone] Esther Connolly RN Unavailable Anastasia Rayo LPN Unavailable Encounter Details Date Type Department Care Team (Late st Contact Info) Description 08/07/2024 Abstract [facility] 112 [facility] 110 [place] [address] Beni Nguyen MD 112 [facility] 110 [place], [place] [address] Social History Tobacco Use Types Packs/Day Years [...] How often do you attend chur or anglican services? Never 03/17/2023 Do you belong to [...] Upcoming Encounters Date Type Department Care Team ([facility] Contact Info) Description 04/10/2025 3:10 PM EDT Procedure Visit [facility] [address] [facility] 120 [place] [address] Real Og DPM 3006 [facility] 5 [place] [address] documented as of this encounter Visit Diagnoses Not on filedocumented in this encounter Care Teams Business Asst Relationship Specialty Start Date End Date Beni Nguyen MD [address] [facility] 110 [place] [address] PCP - General Internal Medicine 01/02/23 Beni Nguyen MD [address] [facility] 110 [place] [address] PCP - ACO Reach 01/12/23 Esther Connolly, RN [address] [place] [address] Clinical Advocate Family Medicine 09/27/24 11/08/24 Anastasia Rayo LPN 112 [facility] 110 [place] [address] 11/08/24 documented as of this encounter
--- OUTSIDE RECORDS SUMMARY | 2025-02-12 14:18 | XMS_ITS | Encounter Summary ---
Author Organization [facility] Address [address] [facility] [place] [address] Care Team Providers Care Printed Circuit Photographer Name Role Phone Beni Nguyen MD Primary Care Provider [phone] Beni Nguyen MD Unavailable [phone] Esther Connolly RN Unavailable Anastasia Rayo LPN Unavailable Encounter Details Date Type Department Care Team (Late st Contact Info) Description 08/19/2024 Abstract [facility] 112 [facility] 110 [place] [address] Beni Nguyen MD 112 [facility] 110 [place], [place] [address] Social History Tobacco Use Types Packs/Day Years [...] Department Care Team ([facility] Contact Info) Description 04/10/2025 3:10 PM EDT Procedure Visit [facility] 112 [address] [facility] 120 [place] [address] Real Og DPM 3006 [facility] 5 [place] [address] documented as of this encounter Visit Diagnoses Not on filedocumented in this encounter Care Teams Printed Circuit Photographer Relationship Specialty Start Date End Date Beni Nguyen MD [address] [facility] 110 [place] [address] PCP - General Internal Medicine 01/02/23 Beni Nguyen MD [address] [facility] 110 [place] [address] PCP - ACO Reach 01/12/23 Esther Connolly, RN [address] [place] [address] Clinical Advocate Family Medicine 09/27/24 11/08/24 Anastasia Rayo LPN [address] [facility] 110 [place] [address] 11/08/24 documented as of this encounter
--- OUTSIDE RECORDS SUMMARY | 2025-02-12 14:18 | XMS_ITS | Patient Health Record ---
Author Organization [facility] [place] Address [address] [place] [address] Care Team Providers Care Gaming Department Head Name Role Phone Beni Nguyen MD Primary Care Provider Ivan Velazquez [phone] Allergies No Known Allergies Reason For Referral No Information Medications Medication SIG (Take, Route, Frequency, Duration) Notes Start Date End Date Status Potassium Chloride ER 10 MEQ 1 tablet with food Orally Twice a day Active Baclofen 10 MG as directed Orally Active predniSONE 10 MG 1 tablet Orally Active Eliquis 5 MG 1 tablet Orally Twice a day for 30 day(s) Active pyRIDostigmine [place] 60 MG 1 tablet Orally every 4 hrs for 30 day(s) Active Lisinopril 20 MG Orally Act alex Loratadine 10 MG 1 tablet Orally Once a day Active Multivitamin Men - Orally A ctive Nebivolol HCl 10 MG 1 tablet Orally Active Fish Oil 1200 MG 1 capsule Orally Once a day Active Simvastatin 40 MG 1 tablet in the evening Orally Once a day Active Furosemide 20 MG 1 tablet Orally Once a day for 30 day(s) Active Triamterene-HCTZ 37.5-25 MG 1 tablet in the morning Orally Once a day Active Gabapentin 300 MG 1 capsule Orally Once a day for 30 day(s) Active Amiodarone HCl 200 MG TAKE 1 TABLET BY MOUTH IN THE MORNING Oral for 30 Days Not-Taking hydrALAZINE HCl 50 MG 1 tablet with food Orally Three times a day for 30 day(s) Active Myrbetriq 50 MG 1 tablet Orally Once a day for 30 day(s) * Lot # [id number], Expiration Date: 10/202409/08/2022 Not-Taking Immunizations Vaccine Route Administration Date Status Comme nts Flu, Fluzone High-Dose (2022 -2023) (00906) 65 yrs+ Unknown 06/22/2023 Administered Pneumococcal (Pneumovax 23) Unknown 11/30/2017 Administ mal Pneumococcal (Prevnar 13) Unknown 10/26/2015 Administer ed SARS-COV-2 (COVID 19) bivale nt 30 mcg/0.3 ml dose Unknown 07/21/2022 Administered Social History Tobacco Use: Social History Observation Description Date Details (start date - stop date) Never Smoker NA - NA Tobacco Use/Smoking Question Answer Notes Patient is a nonsmoker Alcohol Screen (Audit-C) Question Answer Notes Did you have a drink contain ing alcohol in the past year? Yes How many drinks did you have on a typical day when you were drinking in the past year? 1 or 2 drinks (0 point) How often did you have a dri nk containing alcohol in the past year? Weekly (3 points) Points 3 Interpretation Negative Problems Problem Type SNOMED Code ICD Code Onset Dates Problem Status W/U Status Risk Notes Problem 63729115 Essential (primary) hypertension (I10) Active confirmed Problem 02657222 Myasthenia gravi s without (acute) exacerbation (G70.00) Active confirmed Problem 049283576 Dermatochalasis of right eye, unspecified eyelid (H02.833) Active confirmed Problem 013485002 Dermatochalasis of left eye, unspecified eyelid (H02.836) Active confirmed Problem 177949867 Paroxysmal atria l fibrillation (I48.0) Active confirmed Problem Morbid obesity (639886622) Morbid obesity (E66.01) Active confirmed Problem Myasthenia gravis (66735974) Myasthenia gravis (G70.00) Active confirmed Problem Obstructive sleep apnea syndrome (50439576) JAMISON (obstructive sleep apnea) (G47.33) Active confirmed Problem Obstructive sleep apnea syndrome (48572478) JAMISON on CPAP (G47.33) Active confirmed Problem History of pulmonary embolus (877182197) History of pulmonary embolism (Z86.711) Active confirmed Problem Malignant tumor of urinary bladder (312324148) Malignant neoplasm of urinary bladder, unspecified site (C67.9) Active confirmed Problem 584375391 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 Problem 719249406 Macular pucker, right eye (H35.371) Active confirmed OP'D. Problem 81169989 Retinal detachment, right (H33.21) Active confirmed OP'D. Problem 13666635 Pseudophakia of right eye (Z96.1) Active confirmed Problem 816639045 MG, ocular (myasthenia gravis) (G70.00) Active confirmed DOING WELL. SAME TX. ARRANGE FOR F/U IN [facility]). Problem 77123375 Pseudophakia, right eye (Z96.1) Active confirmed Problem Myasthenic crisis (19694076) Myasthenic crisis (G70.01) Active confirmed Plan Of Treatment No Information Insurance Providers Payer Name Payer Address Payer Phone Subscriber Number Group Number Insured Name Patient Relationship to Insured Coverage Start Date Coverage End Date [place] [address] [place] [address] [id number] Tommie Ankur Self - patient is the insured 9 [facility] [address] [place] [address] [id number] PLAN F Ankur Reilly Self - patient is the insured Medical (General) History Medical History History ICD Code Myasthenia gravis G70.00 Malignant neoplasm of urinary bladder, u nspecified site C67.9 HTN (hypertension) I10 HLD (hyperlipidemia) E78.5 Morbid obesity E66.01 JAMISON (obstructive sleep apnea) G47.33 History of pulmonary embolism Z86.711 Hospitalized 32 days in April 2023 f or myasthenia gravis Surgical History Surgery Date(Month/Year) Bladder biopsy 01/13/22 Bladder tumor removal 03/03/22 Cystoscopy, TURBT 06/14/22/& 06/28/22, 08/30/22 appendectomy cataract removal Cardiac Catheterization Cystoscopy, bladder biopsy 09/14/23 VERTEBAE IN NECK REPAIRED @ 2,3,4,5 2015 Hospitalization History Reason Date(Month/Year) Myasthenic Crisis with acute respiratory failure[facility] 05/09/2023
--- OUTSIDE RECORDS SUMMARY | 2025-02-12 14:18 | XMS_ITS | Encounter Summary ---
Author Organization [facility] Address [address] [place] [address] Care Team Providers Care Outside Machinist Name Role Phone Beni Nguyen MD Primary Care Provider [phone] Beni Nguyen MD Unavailable [phone] Anastasia Rayo LPN Unavailable Reason for Visit * Reason Onset Date Comments FYI 01/29/2025 Encounter Details Date Type Department Care Team (Late st Contact Info) Description 01/29/2025 Telephone [facility] 112 [facility] 110 [place] [address] Leela Cherry, WAREHOUSE RECORD CLERK 112 [facility] 110 [place], [place] [address] FYI Social History Tobacco Use Types Packs/Day Years [...] Patient Health Questionnaire-2 Score 0 12/05/2024 [facility] of Occupat ional [...] on file documented as of this encounter Miscellaneous Notes * Telephone Encounter - Esther Santos MA - 01/29/2025 11:16 AM EDT Good morning, this is Mihai. I am 1 of the home health physical therapists with [facility]. [facility] calling for 1 of ban lopez of these patients trying Ankur Reilly. His date of is 1945. Just to let you guys know we are doing his discharge today from home health physical therapy. He is Doing quite a bit better and just had to let you know or sign them off. So if you have any questions, give me a call my numbers [phone]. Thank you. documented in this encounter Plan of Treatment Upcoming Encounters Date Type Department Care Team (Late st Contact Info) Description 04/10/2025 3:10 PM EDT Procedure Visit [facility] [address] [facility] 120 [place] [address] Real Og, DPMarcial 3006 [facility] 5 [place] [address] documented as of this encounter Visit Diagnoses Not on filedocumented in this encounter Care Teams Outside Machinist Relationship Specialty Start Date End Date Beni Nguyen MD 112 [facility] 110 [place] [address] PCP - General Internal Medicine 01/02/23 Beni Nguyen MD [address] [facility] 110 [place] [address] PCP - ACO Reach 01/12/23 Anastasia Rayo LPN 112 [facility] 110 [place] [address] 11/08/24 documented as of this encounter
--- OUTSIDE RECORDS SUMMARY | 2025-02-12 14:18 | XMS_ITS | Encounter Summary ---
Author Organization [facility] Address [address] [place] [address] Care Team Providers Care Relay Dispatcher Name Role Phone Beni Nguyen MD Primary Care Provider [phone] Beni Nguyen MD Unavailable [phone] Esther Connolly RN Unavailable [phone] Anastasia Rayo LPN Unavailable Encounter Details Date Type Department Care Team (Late st Contact Info) Description 10/11/2023 Abstract [facility] 112 [facility] 110 [place] [address] Beni Nguyen MD 112 [facility] 110 [place], [place] [id number] Social History Tobacco Use Types Packs/Day Years [...] often do you attend chur ch or congregation services? Never 03/17/2023 Do you [...] Recorded Patient Health Questionnaire-2 Score 0 10/05/2023 [facility] Stress Questionnaire Answer Date [...] WAY [facility] 120 [place] [address] Real Og DPM 3006 [facility] 5 [place] [address] documented as of this encounter Visit Diagnoses Not on filedocumented in this encounter Care Teams Relay Dispatcher Relationship Specialty Start Date End Date Beni Nguyen MD [address] [facility] 110 [place] [address] PCP - General Internal Medicine 01/02/23 Beni Nguyen MD [address] [facility] 110 [place] [address] PCP - ACO Reach 01/12/23 Esther Connolly, RN [address] [place] [address] Clinical [facility] Family [facility] 09/27/24 11/08/24 Anastasia Rayo LPN 112 [facility] 110 [place] [address] 11/08/24 documented as of this encounter
--- OUTSIDE RECORDS SUMMARY | 2025-02-12 14:18 | XMS_ITS | Encounter Summary ---
Author Organization [facility] Address [address] [facility] [place] [address] Care Team Providers Care Automatic Buffer Name Role Phone Beni Nguyen MD Primary Care Provider [phone] Beni Nguyen MD Unavailable [phone] Esther Connolly RN Unavailable [phone] Anastasia Rayo LPN Unavailable Encounter Details Date Type Department Care Team (Late st Contact Info) Description 08/07/2024 Abstract [facility] 112 [facility] 110 [place] [address] Beni Nguyen MD 112 [facility] 110 [place], [place] [id number] Social History Tobacco Use Types Packs/Day Years [...] Recorded Patient Health Questionnaire-2 Score 0 10/05/2023 [facility] of Occupat ional Health - [...] Upcoming Encounters Date Type Department Care Team ([facility] Contact Info) Description 04/10/2025 3:10 PM EDT Procedure Visit [facility] 112 [facility] [facility] 120 [place] [address] Real Og DPM 3006 [facility] 5 [place] [address] documented as of this encounter Visit Diagnoses Not on filedocumented in this encounter Care Teams Automatic Buffer Relationship Specialty Start Date End Date Beni Nguyen MD [address] [facility] 110 [place] [address] PCP - General Internal Medicine 01/02/23 Beni Nguyen MD [address] [facility] 110 [place] [address] PCP - ACO Reach 01/12/23 Esther Connolly, RN [address] [place] [address] Clinical Advocate Family Medicine 09/27/24 11/08/24 Anastasia Rayo LPN [address] [facility] 110 [place] [address] 11/08/24 documented as of this encounter
--- OUTSIDE RECORDS SUMMARY | 2025-02-12 14:18 | XMS_ITS | Encounter Summary ---
Author Organization [facility] Address [address] [facility] [place] [address] Care Team Providers Care Supervisor Pole Yard Name Role Phone Beni Nguyen MD Primary Care Provider [phone] Beni Nguyen MD Unavailable [phone] Esther Connolly RN Unavailable Anastasia Rayo LPN Unavailable Encounter Details Date Type Department Care Team (Late st Contact Info) Description 07/30/2024 Abstract [facility] 112 [facility] 110 [place] [address] Beni Nguyen MD 112 [facility] 110 [place], [place] [address] Social History Tobacco Use Types Packs/Day Years [...] Upcoming Encounters Date Type Department Care Team ([facility] Contact Info) Description 04/10/2025 3:10 PM EDT Procedure Visit [facility] [address] [facility] 120 [place] [address] Real Og DPM 3006 [facility] 5 [place] [address] documented as of this encounter Visit Diagnoses Not on filedocumented in this encounter Care Teams Supervisor Pole Yard Relationship Specialty Start Date End Date Beni Nguyen MD [address] [facility] 110 [place] [address] PCP - General Internal Medicine 01/02/23 Beni Nguyen MD [address] [facility] 110 [place] [address] PCP - ACO Reach 01/12/23 Esther Connolly, RN [address] [place] [address] Clinical Advocate Family Medicine 09/27/24 11/08/24 Anastasia Rayo LPN [address] [facility] 110 [place] [address] 11/08/24 documented as of this encounter
--- OUTSIDE RECORDS SUMMARY | 2025-02-12 14:18 | XMS_ITS | Encounter Summary ---
Author Organization [facility] Address [address] [facility] [place] [address] Care Team Providers Care Quebracho Tanner Name Role Phone Beni Nguyen MD Primary Care Provider [phone] Beni Nguyen MD Unavailable [phone] Esther Connolly RN Unavailable [phone] Anastasia Rayo LPN Unavailable Encounter Details Date Type Department Care Team (Late st Contact Info) Description 07/08/2024 Abstract [facility] 112 [facility] 110 [place] [address] Beni Nguyen MD 112 [facility] 110 [place], [place] [address] Social History Tobacco Use Types Packs/Day Years [...] Recorded Patient Health Questionnaire-2 Score 0 10/05/2023 [facility] of Occupat ional Health [...] Procedure Visit [facility] 112 [facility] [facility] 120 [place] [address] Real Og DPM 3006 [facility] 5 [place] [address] documented as of this encounter Visit Diagnoses Not on filedocumented in this encounter Care Teams Quebracho Tanner Relationship Specialty Start Date End Date Beni Nguyen MD [address] [facility] 110 [place] [address] PCP - General Internal Medicine 01/02/23 Beni Nguyen MD [address] [facility] 110 [place] [address] PCP - ACO Reach 01/12/23 Esther Connolly, RN [address] [place] [address] Clinical Advocate Family Medicine 09/27/24 11/08/24 Anastasia Rayo LPN 112 [address] [facility] 110 [place] [address] 11/08/24 documented as of this encounter
--- OUTSIDE RECORDS SUMMARY | 2025-02-12 14:18 | XMS_ITS | Encounter Summary ---
Author Organization [facility] Address [address] [facility] [place] [address] Care Team Providers Care Outer Diameter Technician Name Role Phone Beni Nguyen MD Primary Care Provider [phone] Beni Nguyen MD Unavailable [phone] Esther Connolly RN Unavailable [phone] Anastasia Rayo LPN Unavailable Encounter Details Date Type Department Care Team (Late st Contact Info) Description 07/26/2024 Abstract [facility] 112 [facility] 110 [place] [address] Beni Nguyen MD 112 [facility] 110 [place], [place] [id number] Social History Tobacco Use Types Packs/Day Years [...] Upcoming Encounters Date Type Department Care Team ([facility] Contact Info) Description 04/10/2025 3:10 PM EDT Procedure Visit [facility]OD[facility] 112 [facility] [facility] 120 [place] [address] Real Og DPM 3006 [facility] 5 [place] [address] documented as of this encounter Visit Diagnoses Not on filedocumented in this encounter Care Teams Outer Diameter Technician Relationship Specialty Start Date End Date Beni Nguyen MD [address] [facility] 110 [place] [address] PCP - General Internal Medicine 01/02/23 Beni Nguyen MD [address] [facility] 110 [place] [address] PCP - ACO Reach 01/12/23 Esther Connolly, RN [address] [place] [address] Clinical Advocate Family Medicine 09/27/24 11/08/24 Anastasia Rayo LPN [address] [facility] 110 [place] [address] 11/08/24 documented as of this encounter
--- OUTSIDE RECORDS SUMMARY | 2025-02-12 14:18 | XMS_ITS | Encounter Summary ---
Author Organization [facility] Address [address] [facility] [place] [address] Care Team Providers Care Associate Dean Name Role Phone Beni Nguyen MD Primary Care Provider [phone] Beni Nguyen MD Unavailable [phone] Esther Connolly RN Unavailable Anastasia Rayo LPN Unavailable Encounter Details Date Type Department Care Team (Late st Contact Info) Description 08/07/2024 Abstract [facility] 112 [facility] 110 [place] [address] Beni Nguyen MD 112 [facility] 110 [place], [place] [id number] Social History Tobacco Use Types Packs/Day Years [...] any clubs o r organizations such as synagogue groups, unions, fraternal or athletic groups, or [...] Recorded Patient Health Questionnaire-2 Score 0 10/05/2023 [facility] of Occupat ional Health - Occupational Stress [...] Department Care Team ([facility] Contact Info) Description 04/10/2025 3:10 PM EDT Procedure Visit [facility]OD[facility] 112 [facility] [facility] 120 [place] [address] Real Og DPM 3006 [facility] 5 [place] [address] documented as of this encounter Visit Diagnoses Not on filedocumented in this encounter Care Teams Associate Dean Relationship Specialty Start Date End Date Beni Nguyen MD [address] [facility] 110 [place] [address] PCP - General Internal Medicine 01/02/23 Beni Nguyen MD [address] [facility] 110 [place] [address] PCP - ACO Reach 01/12/23 Esther Connolly, RN [address] [place] [address] Clinical Advocate Family Medicine 09/27/24 11/08/24 Anastasia aRyo LPN [address] [facility] 110 [place] [address] 11/08/24 documented as of this encounter
--- OUTSIDE RECORDS SUMMARY | 2025-02-12 14:18 | XMS_ITS | Encounter Summary ---
Author Organization [facility] Address [address] [facility] [place] [address] Care Team Providers Care Track Worker Name Role Phone Beni Nguyen MD Primary Care Provider [phone] Beni Nguyen MD Unavailable [phone] Esther Connolly RN Unavailable Anastasia Rayo LPN Unavailable Encounter Details Date Type Department Care Team (Late st Contact Info) Description 07/15/2024 Abstract [facility] 112 [facility] 110 [place] [address] Beni Nguyen MD 112 [facility] 110 [place], [place] [address] Social History Tobacco Use Types Packs/Day Years [...] Upcoming Encounters Date Type Department Care Team ([facility] Contact Info) Description 04/10/2025 3:10 PM EDT Procedure Visit [facility]OD[facility] 112 [facility] [facility] 120 [place] [address] Real Og DPM 3006 [facility] 5 [place] [address] documented as of this encounter Visit Diagnoses Not on filedocumented in this encounter Care Teams Track Worker Relationship Specialty Start Date End Date Beni Nguyen MD [address] [facility] 110 [place] [address] PCP - General Internal Medicine 01/02/23 Beni Nguyen MD [address] [facility] 110 [place] [address] PCP - ACO Reach 01/12/23 Esther Connolly, RN [address] [place] [address] Clinical Advocate Family Medicine 09/27/24 11/08/24 Anastasia Rayo LPN [address] [facility] 110 [place] [address] 11/08/24 documented as of this encounter
--- OUTSIDE RECORDS SUMMARY | 2025-02-12 14:18 | XMS_ITS | Encounter Summary ---
Author Organization [facility] Address [address] [facility] [place] [address] Care Team Providers Care Linux Programmer Name Role Phone Beni Nguyen MD Primary Care Provider Beni Nguyen MD Unavailable [phone] Esther Connolly RN Unavailable [phone] Anastasia Rayo LPN Unavailable Encounter Details Date Type Department Care Team (Late st Contact Info) Description 07/17/2024 Abstract [facility] 112 [facility] 110 [place] [address] Beni Nguyen MD 112 [facility] 110 [place], [place] [address] Social History Tobacco Use Types Packs/Day Years [...] Upcoming Encounters Date Type Department Care Team ([facility] Contact Info) Description 04/10/2025 3:10 PM EDT Procedure Visit [facility]OD[facility] 112 [address] [facility] 120 [place] [address] Real Og DPM 3006 [facility] 5 [place] [address] documented as of this encounter Visit Diagnoses Not on filedocumented in this encounter Care Teams Linux Programmer Relationship Specialty Start Date End Date Beni Nguyen MD [address] [facility] 110 [place] [address] PCP - General Internal Medicine 01/02/23 Beni Nguyen MD [address] [facility] 110 [place] [address] PCP - ACO Reach 01/12/23 Esther Connolly, RN [address] [place] [address] Clinical Advocate Family Medicine 09/27/24 11/08/24 Anastasia Rayo LPN [address] [facility] 110 [place] [address] 11/08/24 documented as of this encounter
--- OUTSIDE RECORDS SUMMARY | 2025-02-12 14:18 | XMS_ITS | Encounter Summary ---
Author Organization [facility] Address [address] [facility] [place] [address] Care Team Providers Care Dairy Machine Operator Farmworker Name Role Phone Beni Nguyen MD Primary Care Provider [phone] Beni Nguyen MD Unavailable [phone] Esther Connolly RN Unavailable Anastasia Rayo LPN Unavailable Encounter Details Date Type Department Care Team (Late st Contact Info) Description 07/29/2024 Abstract [facility] 112 [facility] 110 [place] [address] Beni Nguyen MD 112 [facility] 110 [place], [place] [address] Social History Tobacco Use Types Packs/Day Years [...] How often do you attend chur or hoahaoism services? Never 03/17/2023 Do you belong to [...] Upcoming Encounters Date Type Department Care Team ([facility] Contact Info) Description 04/10/2025 3:10 PM EDT Procedure Visit [facility] PODI[facility]RY 112 [facility] [facility] 120 [place] [address] Real Og DPM 3006 [facility] 5 [place] [address] documented as of this encounter Visit Diagnoses Not on filedocumented in this encounter Care Teams Dairy Machine Operator Farmworker Relationship Specialty Start Date End Date Beni Nguyen MD [address] [facility] 110 [place] [address] PCP - General Internal Medicine 01/02/23 Beni Nguyen MD [address] [facility] 110 [place] [address] PCP - ACO Reach 01/12/23 Esther Connolly, RN [address] [place] [address] Clinical Advocate Family Medicine 09/27/24 11/08/24 Anastasia Rayo LPN [address] [facility] 110 [place] [address] 11/08/24 documented as of this encounter
--- OUTSIDE RECORDS SUMMARY | 2025-02-12 14:18 | XMS_ITS | Encounter Summary ---
Author Organization [facility] Address [address] [facility] [place] [address] Care Team Providers Care Option Trader Name Role Phone Beni Nguyen MD Primary Care Provider [phone] Beni Nguyen MD Unavailable Esther Connolly RN Unavailable Anastasia Rayo LPN Unavailable Encounter Details Date Type Department Care Team (Late st Contact Info) Description 07/26/2024 Abstract [facility] 112 [facility] 110 [place] [address] Beni Nguyen MD 112 [facility] 110 [place], [place] [address] Social History Tobacco Use Types Packs/Day Years [...] How often do you attend chur or evangelical services? Never 03/17/2023 Do you belong to [...] Recorded Patient Health Questionnaire-2 Score 0 10/05/2023 [facility] of Occupat ional Health - Occupational [...] Upcoming Encounters Date Type Department Care Team ([facility] Contact Info) Description 04/10/2025 3:10 PM EDT Procedure Visit [facility] PODIATRY 112 [address] [facility] 120 [place] [address] Real Og DPM 3006 [facility] 5 [place] [address] documented as of this encounter Visit Diagnoses Not on filedocumented in this encounter Care Teams Option Trader Relationship Specialty Start Date End Date Beni Nguyen MD [address] [facility] 110 [place] [address] PCP - General Internal Medicine 01/02/23 Beni Nguyen MD [address] [facility] 110 [place] [address] PCP - ACO Reach 01/12/23 Esther Connolly, RN [address] [place] [address] Clinical Advocate Family Medicine 09/27/24 11/08/24 Anastasia Rayo LPN [address] [facility] 110 [place] [address] 11/08/24 documented as of this encounter
--- OUTSIDE RECORDS SUMMARY | 2025-02-12 14:18 | XMS_ITS | Encounter Summary ---
Author Organization [facility] Address [address] [facility] [place] [address] Care Team Providers Care Quality Assurance Coach Name Role Phone Beni Nguyen MD Primary Care Provider [phone] Beni Nguyen MD Unavailable [phone] Esther Connolly RN Unavailable Anastasia Rayo LPN Unavailable Encounter Details Date Type Department Care Team (Late st Contact Info) Description 08/22/2024 Abstract [facility] 112 [facility] 110 [place] [address] Beni Nguyen MD 112 [facility] 110 [place], [place] [address] Social History Tobacco Use Types Packs/Day Years [...] any clubs o r organizations such as congregational groups, unions, fraternal or athletic groups, or [...] Patient Health Questionnaire-2 Score 0 10/05/2023 [facility] of Occupat ional Health - Occupational [...] Encounters Date Type Department Care Team ([facility] Contact Info) Description 04/10/2025 3:10 PM EDT Procedure Visit [facility] PODIATRY 112 [address] [facility] 120 [place] [address] Real Og DPM 3006 [facility] 5 [place] [address] documented as of this encounter Visit Diagnoses Not on filedocumented in this encounter Care Teams Quality Assurance Coach Relationship Specialty Start Date End Date Beni Nguyen MD [address] [facility] 110 [place] [address] PCP - General Internal Medicine 01/02/23 Beni Nguyen MD [address] [facility] 110 [place] [address] PCP - ACO Reach 01/12/23 Esther Connolly, RN [address] [place] [address] Clinical Advocate Family Medicine 09/27/24 11/08/24 Anastasia Rayo LPN [address] [facility] 110 [place] [address] 11/08/24 documented as of this encounter
--- OUTSIDE RECORDS SUMMARY | 2025-02-12 14:18 | XMS_ITS | Encounter Summary ---
Author Organization [facility] Address [address] [facility] [place] [address] Care Team Providers Care Electronic Equipment Installer Name Role Phone Beni Nguyen MD Primary Care Provider [phone] Beni Nguyen MD Unavailable [phone] Esther Connolly RN Unavailable [phone] Anastasia Rayo LPN Unavailable Encounter Details Date Type Department Care Team (Late st Contact Info) Description 07/04/2024 Abstract [facility] 112 [facility] 110 [place] [address] Beni Nguyen MD 112 [facility] 110 [place], [place] [address] Social History Tobacco Use Types Packs/Day Years [...] How often do you attend chur or amish services? Never 03/17/2023 Do you belong to any clubs o r organizations such as worship groups, unions, fraternal or athletic groups, or [...] Recorded Patient Health Questionnaire-2 Score 0 10/05/2023 [facility] of Occupat ional Health - [...] Upcoming Encounters Date Type Department Care Team ([facility] Contact Info) Description 04/10/2025 3:10 PM EDT Procedure Visit [facility] PODIATRY 112 [address] [facility] 120 [place] [address] Real Og DPM 3006 [facility] 5 [place] [address] documented as of this encounter Visit Diagnoses Not on filedocumented in this encounter Care Teams Electronic Equipment Installer Relationship Specialty Start Date End Date Beni Nguyen MD [address] [facility] 110 [place] [address] PCP - General Internal Medicine 01/02/23 Beni Nguyen MD [address] [facility] 110 [place] [address] PCP - ACO Reach 01/12/23 Esther Connolly, RN [address] [place] [address] Clinical Advocate Family Medicine 09/27/24 11/08/24 Anastasia Rayo LPN [address] [facility] 110 [place] [address] 11/08/24 documented as of this encounter
--- OUTSIDE RECORDS SUMMARY | 2025-02-12 14:18 | XMS_ITS | Encounter Summary ---
Author Organization [facility] Address [address] [facility] [address] Care Team Providers Care Hat Brim And Crown Laminating Operator Name Role Phone Beni Nguyen MD Primary Care Provider [phone] Beni Nguyen MD Unavailable [phone] Esther Connolly RN Unavailable Anastasia Rayo LPN Unavailable Encounter Details Date Type Department Care Team (Late st Contact Info) Description 07/15/2024 Abstract [facility] 112 [facility] 110 [place] [address] Beni Nguyen MD 112 [facility] 110 [place], [place] [address] Social History Tobacco Use Types Packs/Day Years [...] Recorded Patient Health Questionnaire-2 Score 0 10/05/2023 [facility] of Occupat ional Health [...] Upcoming Encounters Date Type Department Care Team ([facility] Contact Info) Description 04/10/2025 3:10 PM EDT Procedure Visit [facility] PODIATRY 112 [facility] 120 [place] [address] Real Og DPM 3006 [facility] 5 [place] [address] documented as of this encounter Visit Diagnoses Not on filedocumented in this encounter Care Teams Hat Brim And Crown Laminating Operator Relationship Specialty Start Date End Date Beni Nguyen MD [address] [facility] 110 [place] [address] PCP - General Internal Medicine 01/02/23 Beni Nguyen MD [address] [facility] 110 [place] [address] PCP - ACO Reach 01/12/23 Esther Connolly, RN [address] [place] [address] Clinical [facility] Family [facility] 09/27/24 11/08/24 Anastasia Rayo LPN [address] [facility] 110 [place] [address] 11/08/24 documented as of this encounter
--- OUTSIDE RECORDS SUMMARY | 2025-02-12 14:18 | XMS_ITS | Encounter Summary ---
Author Organization [facility] Address [address] [place] [address] Care Team Providers Care Media Relations Associate Name Role Phone Beni Nguyen MD Primary Care Provider [phone] Beni Nguyen MD Unavailable [phone] Anastasia Rayo LPN Unavailable Encounter Details Date Type Department Care Team (Late st Contact Info) Description 02/05/2025 Abstract [facility] [address] [facility] 110 [place] [address] Beni Nguyen MD 112 [facility] 110 [place] [address] Social History Tobacco Use Types Packs/Day Years [...] How often do you attend chur or yazdanism services? Never 03/17/2023 Do you belong to [...] Patient Health Questionnaire-2 Score 0 12/05/2024 [facility] [...] Upcoming Encounters Date Type Department Care Team ([facility] Contact Info) Description 04/10/2025 3:10 PM EDT Procedure Visit [facility] [address] [facility] 120 [place] [address] Real Og DPM 3006 [facility] 5 [place] [address] documented as of this encounter Visit Diagnoses Not on filedocumented in this encounter Care Teams Media Relations Associate Relationship Specialty Start Date End Date Beni Nguyen MD [address] [facility] 110 [place] [address] PCP - General Internal Medicine 01/02/23 Beni Nguyen MD [address] [facility] 110 [place] [address] PCP - ACO Reach 01/12/23 Anastasia Rayo LPN 112 [facility] 110 [place] [address] 11/08/24 documented as of this encounter
--- OUTSIDE RECORDS SUMMARY | 2025-02-12 14:19 | XMS_ITS | Encounter Summary ---
Author Organization [facility] Address [address] [place] [address] Care Team Providers Care Director Alumni Relations Name Role Phone Beni Nguyen MD Primary Care Provider [phone] Beni Nguyen MD Unavailable [phone] Esther Connolly RN Unavailable Anastasia Rayo LPN Unavailable Encounter Details Date Type Department Care Team (Late st Contact Info) Description 10/26/2023 Abstract [facility] [address] [facility] 110 [place] [address] Beni Nguyen MD 112 [facility] 110 [place], [place] [address] Social History Tobacco Use Types Packs/Day Years [...] often do you attend chur ch or cheondoism services? Never 03/17/2023 Do you belong to [...] 0 10/05/2023 [facility] Questionnaire Answer Date [...] Visit [facility] [address] [facility] 120 [place] [address] Real Og DPM 3[address] [facility] 5 [place] [address] documented as of this encounter Visit Diagnoses Not on filedocumented in this encounter Care Teams Director Alumni Relations Relationship Specialty Start Date End Date Beni Nguyen MD [address] [facility] 110 [place] [address] PCP - General Internal Medicine 01/02/23 Beni Nguyen MD [address] [facility] 110 [place] [address] PCP - ACO Reach 01/12/23 Esther Connolly, RN [address] [place] [address] [facility] 09/27/24 11/08/24 Anastasia Rayo LPN 112 [facility] 110 [place] [address] 11/08/24 documented as of this encounter
--- OUTSIDE RECORDS SUMMARY | 2025-02-12 14:19 | XMS_ITS | Encounter Summary ---
Author Organization [facility] Address [address] [place] [address] Care Team Providers Care Sign Poster Name Role Phone Beni Nguyen MD Primary Care Provider Beni Nguyen MD Unavailable [phone] Esther Connolly RN Unavailable Anastasia Rayo LPN Unavailable Encounter Details Date Type Department Care Team (Late Contact Info) Description 12/23/2022 Abstract [facility] 112 [facility] 110 [place] [address] Beni Nguyen MD 112 [facility] 110 [place], [place] [address] Social History Tobacco Use Types Packs/Day Years [...] Department Care Team (Late Contact Info) Description 04/10/2025 3:10 PM EDT Procedure Visit [facility] 112 [facility] 120 [place] [address] Real Og, DPM 3006 [facility] 5 [place] [address] documented as of this encounter Visit Diagnoses Not on filedocumented in this encounter Care Teams Sign Poster Relationship Specialty Start Date End Date Beni Nguyen MD [address] [facility] 110 [place] [address] PCP - General Internal Medicine 01/02/23 Beni Nguyen MD [address] [facility] 110 [place] [address] PCP - ACO Reach 01/12/23 Esther Connolly, RN [address] [place] [address] Clinical [facility] 09/27/24 11/08/24 Anastasia Rayo LPN [address] [facility] 110 [place] [address] 11/08/24 documented as of this encounter
--- OUTSIDE RECORDS SUMMARY | 2025-02-12 14:19 | XMS_ITS | Encounter Summary ---
Author Organization [facility] Address [address] [facility] [place] [address] Care Team Providers Care Senior Graphic Designer Name Role Phone Beni Nguyen MD Primary Care Provider [phone] Beni Nguyen MD Unavailable [phone] Esther Connolly RN Unavailable [phone] Anastasia Rayo LPN Unavailable Encounter Details Date Type Department Care Team (Late st Contact Info) Description 09/17/2024 Abstract [facility] 112 [facility] 110 [place] [address] Beni Nguyen MD 112 [facility] 110 [place], [place] [address] Social History Tobacco Use Types Packs/Day Years [...] How often do you attend chur or mandaeism services? Never 03/17/2023 Do you belong to any clubs o r organizations such as buddhism groups, unions, fraternal or athletic groups, or [...] Patient Health Questionnaire-2 Score 0 10/05/2023 [facility] Occupat [...] Upcoming Encounters Date Type Department Care Team ([facility] Contact Info) Description 04/10/2025 3:10 PM EDT Procedure Visit [facility] [address] [facility] 120 [place] [address] Real Og DPM 3006 [facility] 5 [place] [address] documented as of this encounter Visit Diagnoses Not on filedocumented in this encounter Care Teams Senior Graphic Designer Relationship Specialty Start Date End Date Beni Nguyen MD [address] [facility] 110 [place] [address] PCP - General Internal Medicine 01/02/23 Beni Nguyen MD [address] [facility] 110 [place] [address] PCP - ACO Reach 01/12/23 Esther Connolly, RN [address] [place] [address] Clinical [facility] Family [facility] 09/27/24 11/08/24 Anastasia Rayo LPN 112 [facility] 110 [place] [address] 11/08/24 documented as of this encounter
--- OUTSIDE RECORDS SUMMARY | 2025-02-12 14:19 | XMS_ITS | Encounter Summary ---
Author Organization [facility] Address [address] [facility] [place] [address] Care Team Providers Care Manager Animal Name Role Phone Beni Nguyen MD Primary Care Provider [phone] Beni Nguyen MD Unavailable [phone] Esther Connolly RN Unavailable Anastasia Rayo LPN Unavailable Encounter Details Date Type Department Care Team (Late st Contact Info) Description 08/28/2024 Abstract [facility] 112 [facility] 110 [place] [address] Beni Nguyen MD 112 [facility] 110 [place], [place] [address] Social History Tobacco Use Types Packs/Day Years [...] Patient Health Questionnaire-2 Score 0 10/05/2023 [facility] of Occupat ional Health [...] Upcoming Encounters Date Type Department Care Team ([facility] Contact Info) Description 04/10/2025 3:10 PM EDT Procedure Visit [facility] 112 [facility] [facility] 120 [place] [address] Real Og DPM 3006 [facility] 5 [place] [address] documented as of this encounter Visit Diagnoses Not on filedocumented in this encounter Care Teams Manager Animal Relationship Specialty Start Date End Date Beni Nguyen MD [address] [facility] 110 [place] [address] PCP - General Internal Medicine 01/02/23 Beni Nguyen MD [address] [facility] 110 [place] [address] PCP - ACO Reach 01/12/23 Esther Connolly, RN [address] [place] [address] Clinical Advocate Family Medicine 09/27/24 11/08/24 Anastasia Rayo LPN [address] [facility] 110 [place] [address] 11/08/24 documented as of this encounter
--- OUTSIDE RECORDS SUMMARY | 2025-02-12 14:19 | XMS_ITS | Encounter Summary ---
Author Organization [facility] Address [address] [facility] [place] [address] Care Team Providers Care Breakdown Man Name Role Phone Beni Nguyen MD Primary Care Provider [phone] Beni Nguyen MD Unavailable [phone] Esther Connolly RN Unavailable [phone] Anastasia Rayo LPN Unavailable Encounter Details Date Type Department Care Team (Late st Contact Info) Description 09/16/2024 Abstract [facility] 112 [facility] 110 [place] [address] Beni Nguyen MD 112 [facility] 110 [place], [place] [address] Social History Tobacco Use Types Packs/Day Years [...] How often do you attend chur or yarsanism services? Never 03/17/2023 Do you belong to [...] Department Care Team ([facility] Contact Info) Description 04/10/2025 3:10 PM EDT Procedure Visit [facility] [address] [facility] 120 [place] [address] Real Og DPM 3006 [facility] 5 [place] [address] documented as of this encounter Visit Diagnoses Not on filedocumented in this encounter Care Teams Breakdown Man Relationship Specialty Start Date End Date Beni Nguyen MD [address] [facility] 110 [place] [address] PCP - General Internal Medicine 01/02/23 Beni Nguyen MD [address] [facility] 110 [place] [address] PCP - ACO Reach 01/12/23 Esther Connolly, RN [address] [place] [address] Clinical [facility] 09/27/24 11/08/24 Anastasia Rayo LPN 112 [address] [facility] 110 [place] [address] 11/08/24 documented as of this encounter
--- OUTSIDE RECORDS SUMMARY | 2025-02-12 14:19 | XMS_ITS | Patient Health Record ---
Author Organization [facility] Address [address] [place] [address] Care Team Providers Care Patient Observer Name Role Phone Wilton Kramer Unavailable [phone] xxDagoberto Nina Unavailable Reason For Referral Reason MARIE................. ...Please obtain authorization for left knee MRI Diagnosis 1 Pain, joint, knee, l eft (M25.562) Referral Organization [facility] Referring Provider First Name Wilton Referring Provider Last Name Nia Referring Provider Speciality Orthopedic Surgery [facility] Referred Address [place], [place], Procedure 1 MRI Joint Lower Ext w/o Dye ([id number]) General Notes Candida Little 024 12:37:13 PM >PER AVAILITY, PATIENT IS ACTIVE PART A AND PART B, NO AUTH REQUIRED MA NOTIFIED REF FAXED TO Dora SUMMERS Kimberly 03/04/2024 01:13:24 PM >Faxed order to [facility]. Notified patient. Referral Priority Routine Problems Problem Type SNOMED Code ICD Code Onset Dates Problem Status W/U Status Risk Notes Problem [id number] Primary osteoarthritis of left knee (M17.12) Active confirmed Encounters Encounter Location Date Provider Diagnosis [facility] [address] [place] [address] 03/04/[address] [facility] Pain, joint, knee, left M25.562 [facility] [address] [place] [address] [place] [address] 03/13/2024 Wilton Kramer Primary osteoarthritis of left knee M17.12 [facility] [address] [place] [address] 03/18/2024 Wilton Nia [facility] [address] [place] [address] 05/14/2024 Wilton Kramer Primary osteoarthritis of left knee M17.12 and Pain, joint, knee, left M25.562 [facility] [address] [facility] [place] [address] 05/20/2024 Wilton Kramer Assessments Encounter Date Diagnosis [...] MRI : Knee W/O Contrast Left - [id number] Home PT 05/14/2024 [facility]- PT/OT EVAL AND TREAT 3X/WEEK FOR 6 WEEKS 03/13/2024 Insurance Providers Payer Name Payer Address Payer Phone Subscriber Number Group Number Insured Name Patient Relationship to Insured Coverage Start Date Coverage End [place] [address] [place] [address] [id number] TAURUS GARCIA Self - patient is the insured [facility] SUPPLEMENT [address] [place] [address] [id number] TAURUS GARCIA Self - patient is the insured
--- OUTSIDE RECORDS SUMMARY | 2025-02-12 14:19 | XMS_ITS | Encounter Summary ---
Author Organization [facility] Address [address] [facility] [place] [address] Care Team Providers Care Bed Bug Exterminator Name Role Phone Beni Nguyen MD Primary Care Provider [phone] Beni Nguyen MD Unavailable [phone] Esther Connolly RN Unavailable Anastasia Rayo LPN Unavailable Encounter Details Date Type Department Care Team (Late st Contact Info) Description 09/11/2024 Abstract [facility] 112 [facility] 110 [place] [address] Beni Nguyen MD 112 [facility] 110 [place], [place] [address] Social History Tobacco Use Types Packs/Day Years [...] How often do you attend chur or hindu services? Never 03/17/2023 Do you [...] Recorded Patient Health Questionnaire-2 Score 0 10/05/2023 [facility] of Occupat ional Health [...] Date Type Department Care Team ([facility] Contact Info) Description 04/10/2025 3:10 PM EDT Procedure Visit [facility] [address] [facility] 120 [place] [address] Real Og DPM 3006 [facility] 5 [place] [address] documented as of this encounter Visit Diagnoses Not on filedocumented in this encounter Care Teams Bed Bug Exterminator Relationship Specialty Start Date End Date Beni Nguyen MD [address] [facility] 110 [place] [address] PCP - General Internal Medicine 01/02/23 Beni Nguyen MD [address] [facility] 110 [place] [address] PCP - ACO Reach 01/12/23 Esther Connolly, RN [address] [place] [address] Clinical [facility] 09/27/24 11/08/24 Anastasia Rayo LPN [address] [facility] 110 [place] [address] 11/08/24 documented as of this encounter
--- OUTSIDE RECORDS SUMMARY | 2025-02-12 14:19 | XMS_ITS | Clinical Summary ---
Author Organization [facility] Address [address] [place], [place] [address] Care Team Providers Care Farm Machine Tender Name Role Phone Patrick ARMENTA MD, Beni Hamlin Primary Care Provider [phone] Allergies No known active allergies Medications pyridostigmine [...] furosemide (LASIX) 20 mg tablet 03/22/2022 Active [place]-3 Fatty Acids, FISH OIL, 360-1,200 mg cap [...] Shingrix Vaccine (2 of 3) 07/03/2012 05/08/2012 Medicare Annual Wellness Visit 08/21/2016 RSV Vaccine (1 - 1-dose 75+ series) 2018 Covid-19 Vaccine ( - 2023-2 5 season) 2024 05/25/2021, 11/10/2020, 10/19/2020 Advance Directive Discussion 08/21/2024 Influenza Vaccine (Season Ended) 2025 05/20/2021, 05/19/2021, 05/06/2020, Additional history exists Diabetes Screening 04/27/2025 04/27/2022, 1 09/07/2020, 07/29/2020, Additional history exists Pneumococcal Vaccine: 50+ Completed 2017, 10/26/2015, 10/19/2004 Insurance MEDICARE [id number] Care Teams Farm Machine Tender Relationship Specialty Start Date End Date Beni Nguyen II, MD [address] [place] [address] PCP - General Internal Medicine 12/05/16
--- OUTSIDE RECORDS SUMMARY | 2025-02-12 14:19 | XMS_ITS | Encounter Summary ---
Author Organization [facility] Address [address] [place] [facility] [place] [address] Care Team Providers Care Safety Assistant Name Role Phone Beni Nguyen MD Primary Care Provider [phone] Beni Nguyen MD Unavailable [phone] Esther Connolly RN Unavailable Anastasia Rayo LPN Unavailable Encounter Details Date Type Department Care Team (Late st Contact Info) Description 09/11/2024 Abstract [facility] 112 [facility] 110 [place] [address] Beni Nguyen MD 112 [facility] 110 [place], [place] [phone] Social History Tobacco Use Types Packs/Day Years [...] How often do you attend chur or church services? Never 03/17/2023 Do you [...] Upcoming Encounters Date Type Department Care Team ([facility] Contact Info) Description 04/10/2025 3:10 PM EDT Procedure Visit [facility] [address] [facility] 120 [place] [address] Real Og DPM 3006 [facility] 5 [place] [address] documented as of this encounter Visit Diagnoses Not on filedocumented in this encounter Care Teams Safety Assistant Relationship Specialty Start Date End Date Beni Nguyen MD [address] [facility] 110 [place] [address] PCP - General Internal Medicine 01/02/23 Beni Nguyen MD [address] [facility] 110 [place] [address] PCP - ACO Reach 01/12/23 Esther Connolly, RN [address] [place] [address] Clinical [facility] Family [facility] 09/27/24 11/08/24 Anastasia Rayo LPN [address] [facility] 110 [place] [address] 11/08/24 documented as of this encounter
--- OUTSIDE RECORDS SUMMARY | 2025-02-12 14:19 | XMS_ITS | Encounter Summary ---
Author Organization [facility] Address [address] [facility] [place] [address] Care Team Providers Care Md Senior Research Scientist Name Role Phone Beni Nguyen MD Primary Care Provider [phone] Beni Nguyen MD Unavailable [phone] Esther Connolly RN Unavailable Anastasia Rayo LPN Unavailable Encounter Details Date Type Department Care Team (Late st Contact Info) Description 09/17/2024 Abstract [facility] 112 [facility] 110 [place] [address] Beni Nguyen MD 112 [facility] 110 [place], [place] [address] Social History Tobacco Use Types Packs/Day Years [...] Upcoming Encounters Date Type Department Care Team ([facility] Contact Info) Description 04/10/2025 3:10 PM EDT Procedure Visit [facility] [address] [facility] 120 [place] [address] Real Og DPM 3006 [facility] 5 [place] [address] documented as of this encounter Visit Diagnoses Not on filedocumented in this encounter Care Teams Md Senior Research Scientist Relationship Specialty Start Date End Date Beni Nguyen MD [address] [facility] [address] [place] [address] PCP - General Internal Medicine 01/02/23 Beni Nguyen MD [address] [facility] 110 [place] [address] PCP - ACO Reach 01/12/23 Esther Connolly, RN [address] [place] [address] Clinical [facility]ocate Family Medicine 09/27/24 11/08/24 Anastasia Rayo LPN [address] [facility] 110 [place] [address] 11/08/24 documented as of this encounter
--- OUTSIDE RECORDS SUMMARY | 2025-02-12 14:19 | XMS_ITS | Encounter Summary ---
Author Organization [facility] Address [address] [facility] [place] [address] Care Team Providers Care Cylinder Head Assembler Name Role Phone Beni Nguyen MD Primary Care Provider [phone] Beni Nguyen MD Unavailable [phone] Esther Connolly RN Unavailable Anastasia Rayo LPN Unavailable Encounter Details Date Type Department Care Team (Late st Contact Info) Description 10/09/2024 Abstract [facility] 112 [facility] 110 [place] [address] Beni Nguyen MD 112 [facility] 110 [place], [place] [address] Social History Tobacco Use Types Packs/Day Years [...] How often do you attend chur or sikhism services? Never 03/17/2023 Do you [...] Recorded Patient Health Questionnaire-2 Score 0 10/05/2023 [facility] of Occupat ional Health [...] Upcoming Encounters Date Type Department Care Team ([facility] Contact Info) Description 04/10/2025 3:10 PM EDT Procedure Visit [facility] [address] [facility] 120 [place] [address] Real Og DPM 3006 [facility] 5 [place] [address] documented as of this encounter Visit Diagnoses Not on filedocumented in this encounter Care Teams Cylinder Head Assembler Relationship Specialty Start Date End Date Beni Nguyen MD [address] [facility] 110 [place] [address] PCP - General Internal Medicine 01/02/23 Beni Nguyen MD [address] [facility] 110 [place] [address] PCP - ACO Reach 01/12/23 Esther Connolly, RN [address] [place] [address] Clinical [facility] 09/27/24 11/08/24 Anastasia Rayo LPN [address] [facility] 110 [place] [address] 11/08/24 documented as of this encounter
--- OUTSIDE RECORDS SUMMARY | 2025-02-12 14:19 | XMS_ITS | Encounter Summary ---
Author Organization [facility] Address [address] [facility] [place] [address] Care Team Providers Care Public Address Systems Mechanic Name Role Phone Beni Nguyen MD Primary Care Provider [phone] eBni Nguyen MD Unavailable [phone] Esther Connolly RN Unavailable Anastasia Rayo LPN Unavailable Encounter Details Date Type Department Care Team (Late st Contact Info) Description 09/30/2024 Abstract [facility] [address] [facility] 110 [place] [address] Beni Nguyen MD 112 [facility] 110 [place], [place] [id number] Social History Tobacco Use Types Packs/Day Years [...] Upcoming Encounters Date Type Department Care Team ([facility] Contact Info) Description 04/10/2025 3:10 PM EDT Procedure Visit [facility] [address] [facility] 120 [place] [address] Real Og DPM 3006 [facility] 5 [place] [address] documented as of this encounter Visit Diagnoses Not on filedocumented in this encounter Care Teams Public Address Systems Mechanic Relationship Specialty Start Date End Date Beni Nguyen MD [address] [facility] 110 [place] [address] PCP - General Internal Medicine 01/02/23 Beni Nguyen MD [address] [facility] 110 [place] [address] PCP - ACO Reach 01/12/23 Esther Connolly, RN [address] [place] [address] Clinical [facility] 09/27/24 11/08/24 Anastasia Rayo LPN [address] [facility] 110 [place] [address] 11/08/24 documented as of this encounter
--- OUTSIDE RECORDS SUMMARY | 2025-02-12 14:19 | XMS_ITS | Encounter Summary ---
Author Organization [facility] Address [address] [place] [address] Care Team Providers Care Programmer Developer Name Role Phone Beni Nguyen MD Primary Care Provider [phone] Beni Nguyen MD Unavailable [phone] Esther Connolly RN Unavailable Anastasia Rayo LPN Unavailable Encounter Details Date Type Department Care Team (Late st Contact Info) Description 03/14/2023 Orders Only [facility] [address] [facility] 110 [place] [phone] Leela Cherry, SCREEN EXAMINER [address] [facility] 110 [place], [place] [id number] Social History Tobacco Use Types Packs/Day Years [...] often do you attend chur ch or faith services? Never 03/17/2023 Do you [...] and heating? Not hard at all 03/17/2023 [facility] - [...] Assessment Author 1 03/17/2023 10:45 AM EDT WarrenSalma LPN * Question Answer Date of Assessment [...] one occasion? Never 03/17/2023 10:45 AM EDT MondaySalma L PN documented as of this encounter Plan of Treatment Upcoming Encounters Date Type Department Care Team (Late st Contact Info) Description 04/10/2025 3:10 PM EDT Procedure Visit [facility] 112 [facility] 120 [place] [id number] Real Og DPM 3006 [facility] [place] 5 [place] [address] documented as of this encounter Procedures Procedure Name Priority Date/Time Associated Diagnosis Comments HOME SLEEP TEST Routine 03/10/2023 9:21 AM EDT documented in this encounter Results * Home sleep test (03/10/2023 9:21 AM EDT) Leela Cherry SCREEN EXAMINER SLEEP CENTER ORDERABLES Julianna l Result documented in this encounter Visit Diagnoses Not on filedocumented in this encounter Care Teams Programmer Developer Relationship Specialty Start Date End Date Beni Nguyen MD [address] [address] PCP - General Internal Medicine 01/02/23 Beni Nguyen MD [address] [address] PCP - ACO Reach 01/12/23 Esther Connolly, HEATHER [address] [place] [address] Clinical Advocate Family Medicine 09/27/24 11/08/24 Anastasia Rayo LPN [address] [address] 11/08/24 documented as of this encounter
--- OUTSIDE RECORDS SUMMARY | 2025-02-12 14:19 | XMS_ITS | Encounter Summary ---
Author Organization [facility] Address [address] [place] [address] Care Team Providers Care Rough Rice Tender Name Role Phone Beni Nguyen MD Primary Care Provider [phone] Beni Nguyen MD Unavailable [phone] Esther Connolly RN Unavailable Anastasia Rayo LPN Unavailable Encounter Details Date Type Department Care Team (Late st Contact Info) Description 03/28/2023 Abstract [facility] [address] [facility] 110 [place] [address] Beni Nguyen MD 112 [facility] 110 [place], [place] [id number] Social History Tobacco Use Types Packs/Day Years [...] and heating? Not hard at all 03/17/2023 [facility] [...] 112 [facility] 120 [place] [id number] Real Og, DPM 3006 [facility] 5 [place] [address] documented as of this encounter Visit Diagnoses Not on filedocumented in this encounter Care Teams Rough Rice Tender Relationship Specialty Start Date End Date Beni Nguyen MD [address] [facility] 110 [place] [address] PCP - General Internal Medicine 01/02/23 Beni Nguyen MD [address] [facility] 110 [place] [address] PCP - ACO Reach 01/12/23 Esther Connolly, HEATHER [address] [place] [address] Clinical Advocate Family Medicine 09/27/24 11/08/24 Anastasia Rayo LPN 112 [place] [address] 11/08/24 documented as of this encounter
--- OUTSIDE RECORDS SUMMARY | 2025-02-12 14:19 | XMS_ITS | Encounter Summary ---
Author Organization [facility] Address [address] [facility] [place] [address] Care Team Providers Care Fruit Buyer Name Role Phone Beni Nguyen MD Primary Care Provider [phone] Beni Nguyen MD Unavailable [phone] Esther Connolly RN Unavailable Anastasia Rayo LPN Unavailable Encounter Details Date Type Department Care Team (Late st Contact Info) Description 08/01/2024 Abstract [facility] 112 [facility] 110 [place] [address] Beni Nguyen MD 112 [facility] 110 [place], [place] [phone] Social History Tobacco Use Types Packs/Day Years [...] Recorded Patient Health Questionnaire-2 Score 0 10/05/2023 [facility] Occupat ional Health - [...] Upcoming Encounters Date Type Department Care Team ([facility] Contact Info) Description 04/10/2025 3:10 PM EDT Procedure Visit [facility] [address] [facility] 120 [place] [address] Real Og DPM 3006 [facility] 5 [place] [address] documented as of this encounter Visit Diagnoses Not on filedocumented in this encounter Care Teams Fruit Buyer Relationship Specialty Start Date End Date Beni Nguyen MD [address] [facility] 110 [place] [address] PCP - General Internal Medicine 01/02/23 Beni Nguyen MD [address] [facility] 110 [place] [address] PCP - ACO Reach 01/12/23 Esther Connolly, RN [address] [place] [address] Clinical Advocate Family Medicine 09/27/24 11/08/24 Anastasia Rayo LPN [address] [facility] 110 [place] [address] 11/08/24 documented as of this encounter
--- OUTSIDE RECORDS SUMMARY | 2025-02-12 14:19 | XMS_ITS | Encounter Summary ---
Author Organization [facility] Address [address] [facility] [place] [address] Care Team Providers Care Anthropology And Archeology Instructor Name Role Phone Beni Nguyen MD Primary Care Provider [phone] Beni Nguyen MD Unavailable [phone] Esther Connolly RN Unavailable [phone] Anastasia Rayo LPN Unavailable Encounter Details Date Type Department Care Team (Late st Contact Info) Description 09/19/2024 Abstract [facility] 112 [facility] 110 [place] [address] Beni Nguyen MD 112 [facility] 110 [place], [place] [id number] Social History Tobacco Use Types Packs/Day Years [...] any clubs o r organizations such as restorationism groups, unions, fraternal or athletic groups, or [...] Recorded Patient Health Questionnaire-2 Score 0 10/05/2023 [facility] Occupat ional Health [...] Upcoming Encounters Date Type Department Care Team ([facility] Contact Info) Description 04/10/2025 3:10 PM EDT Procedure Visit [facility] [address] [facility] 120 [place] [address] Real Og DPM 3006 [facility] 5 [place] [address] documented as of this encounter Visit Diagnoses Not on filedocumented in this encounter Care Teams Anthropology And Archeology Instructor Relationship Specialty Start Date End Date Beni Nguyen MD [address] [facility] 110 [place] [address] PCP - General Internal Medicine 01/02/23 Beni Nguyen MD [address] [facility] 110 [place] [address] PCP - ACO Reach 01/12/23 Esther Connolly, RN [address] [place] [address] Clinical Advocate Family Medicine 09/27/24 11/08/24 Anastasia Rayo LPN [address] [facility] 110 [place] [address] 11/08/24 documented as of this encounter
--- OUTSIDE RECORDS SUMMARY | 2025-02-12 14:19 | XMS_ITS | Encounter Summary ---
Author Organization [facility] Address [address] [place] [address] Care Team Providers Care Peoplesoft Hcm Consultant Name Role Phone Beni Nguyen MD Primary Care Provider [phone] Beni Nguyen MD Unavailable [phone] Esther Connolly RN Unavailable Anastasia Rayo LPN Unavailable Encounter Details Date Type Department Care Team (Late st Contact Info) Description 05/10/2023 Orders Only [facility] [address] [facility] [address] [place] [address] A, Unknown Practice [address] [place] [id number] Social History Tobacco Use Types Packs/Day Years [...] any clubs o r organizations such as sikhism groups, unions, fraternal or athletic groups, or [...] ([facility] st Contact Info) Description 04/10/2025 3:10 PM EDT Procedure Visit [facility] 112 [facility] 120 [place] [address] Real Og DPM 3006 [facility] 5 [place] [address] documented as of this encounter Procedures Procedure [...] on filedocumented in this encounter Care Teams Peoplesoft Hcm Consultant Relationship Specialty Start Date End Date Beni Nguyen MD [address] [facility] 110 [place] [address] PCP - General Internal Medicine 01/02/23 Beni Nguyen MD [address] [facility] 110 [place] [address] PCP - ACO Reach 01/12/23 Esther Connolly, RN [address] [place] [address] Clinical Advocate Family Medicine 09/27/24 11/08/24 Anastasia Rayo LPN [address] [facility] 110 [place] [address] 11/08/24 documented as of this encounter
--- OUTSIDE RECORDS SUMMARY | 2025-02-12 14:19 | XMS_ITS | Encounter Summary ---
Author Organization [facility] Address [address] [facility] [place] [address] Care Team Providers Care Packaging Operator Name Role Phone Beni Nguyen MD Primary Care Provider [phone] Beni Nguyen MD Unavailable [phone] Esther Connolly RN Unavailable [phone] Anastasia Rayo LPN Unavailable Encounter Details Date Type Department Care Team (Late st Contact Info) Description 09/24/2024 Abstract [facility] 112 [facility] 110 [place] [address] Beni Nguyen MD 112 [facility] 110 [place], [place] [phone] Social History Tobacco Use Types Packs/Day Years [...] any clubs o r organizations such as mormonism groups, unions, fraternal or athletic groups, or [...] Procedure Visit [facility] [address] [facility] 120 [place] [address] Real Og DPM 3006 [facility] 5 [place] [address] documented as of this encounter Visit Diagnoses Not on filedocumented in this encounter Care Teams Packaging Operator Relationship Specialty Start Date End Date Beni Nguyen MD [address] [facility] 110 [place] [address] PCP - General Internal Medicine 01/02/23 Beni Nguyen MD [address] [facility] 110 [place] [address] PCP - ACO Reach 01/12/23 Esther Connolly, RN [address] [place] [address] Clinical Advocate Family Medicine 09/27/24 11/08/24 Anastasia Rayo LPN [address] [facility] 110 [place] [address] 11/08/24 documented as of this encounter
--- OUTSIDE RECORDS SUMMARY | 2025-02-12 14:19 | XMS_ITS | Encounter Summary ---
Author Organization [facility] Address [address] [facility] [place] [address] Care Team Providers Care Linotype Mechanic Name Role Phone Beni Nguyen MD Primary Care Provider [phone] Beni Nguyen MD Unavailable [phone] Esther Connolly RN Unavailable Anastasia Rayo LPN Unavailable Encounter Details Date Type Department Care Team (Late st Contact Info) Description 09/11/2024 Abstract [facility] 112 [facility] 110 [place] [address] Beni Nguyen MD 112 [facility] 110 [place], [place] [id number] Social History Tobacco Use Types Packs/Day Years [...] Health Questionnaire-2 Score 0 10/05/2023 [facility] of Occupat ional [...] Upcoming Encounters Date Type Department Care Team ([facility] Contact Info) Description 04/10/2025 3:10 PM EDT Procedure Visit [facility] [address] [facility] 120 [place] [address] Real Og DPM 3006 [facility] 5 [place] [address] documented as of this encounter Visit Diagnoses Not on filedocumented in this encounter Care Teams Linotype Mechanic Relationship Specialty Start Date End Date Beni Nguyen MD [address] [facility] 110 [place] [address] PCP - General Internal Medicine 01/02/23 Beni Nguyen MD [address] [facility] 110 [place] [address] PCP - ACO Reach 01/12/23 Esther Connolly, RN [address] [place] [address] Clinical Advocate Family Medicine 09/27/24 11/08/24 Anastasia Rayo LPN [address] [facility] 110 [place] [address] 11/08/24 documented as of this encounter
--- OUTSIDE RECORDS SUMMARY | 2025-02-12 14:19 | XMS_ITS | Encounter Summary ---
Author Organization [facility] Address [address] [place] [address] Care Team Providers Care Internal Corrosion Specialist Name Role Phone Patrick ARMENTA MD, Beni Hamlin Primary Care Provider [phone] Source Comments In the event this information is protected by the Federal Confidentiality of Alcohol and Drug AbusePatient Records regulations: The Federal rules restrict any use of the information to criminally investigate or prosecute any alcohol or drug abuse patient.[facility] Encounter Details Date Type Department Care Team (Late st Contact Info) Description 2023 Lab Requisition [facility] [address] [place] [address] Ivan Barnhart MD [address] [place] [address] Person encountering health services to consult on [...] EST) Case Report Surgical Pathology Report Case: [id number] Authorizing Provider: Ivan Barnhart MD Collected: 2023 09:46 AM Ordering Location: [facility] Received: 2023 09:46 AM [facility] Pathologist: Olivier Mina MD Specimen: SLIDE(S), 2 SLIDES [id number] 2023 12:15 PM EST [facility] FINAL DIAGNOSIS [facility]; [place], [place] ([id number], 09/14/23) A. Urinary bladder, biopsy: - Benign nephrogenic adenoma. JKM 2023 2023 12:15 PM EST [facility] at 1215 EST Diagnosis Comment Thank you for allowing me to review this bladder lesion from an 78-year-old man. 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 2023 12:15 PM EST [facility] Clinical History CONSULT REQUESTED 2023 12:15 PM EST [facility] Performing Lab Diagnostic interpretation performed at [facility], [address] [place] [address]# [id number] Sales Contracts Analyst: Jaylan Mcfadden M.D. 2023 12:15 PM EST [facility] Blocks or Slides MICROSCOPE SLIDE / Unknown 2023 9:46 AM EST 2023 9:46 AM EST us Ivan Barnhart MD SURGICAL PATHOLOGY Final Result [facility] [address] [place] [address] [address] [place] [address], documented in this encounter Visit Diagnoses Diagnosis Person encountering health services to consult on behalf of another person Other person consulting on behalf of another person documented in this encounter Care Teams Internal Corrosion Specialist Relationship Specialty Start Date End Date Beni Nguyen II, MD [address] [facility] 110 [place] [id number] PCP - General Internal Medicine 12/05/16 documented as of this encounter
--- NOTE | 2025-02-12 14:40 | PM.CN ---
Consult Note: HPI Data of Consult Patient: known to practice within the last 3 years Requesting Physician: Kimberly Wright NP Primary Care Provider: KOMAL SCHAFFER Consult Narrative Reason for consult: f/u Narrative: Ankur Reilly a pleasant 79 year old male presents for evaluation of chronic low back and BLE pain secondary to lumbar stenosis with NC, lumbar spondylosis, lumbar DDD, and sacroiliitis. pt has failed to benefit from > 6 weeks of provider guided HEP/PT, heat, ice, tylenol, and is on eliquis so he cannot take NSAIDs. pain today 6/10 increasing to 10/10 with standing, walking, activity. utilizing gabapentin, lidocaine patches with mild relief at this time, denies side effects. recently underwent right SIJ injection with 80% improvement for 3 days. no ongoing relief. cc:: CC: Kimberly Wright NP Review of Systems ROS Status of ROS 10 or more systems reviewed and unremarkable except as noted in history and below PFSH PFSH Medical History Myasthenia gravis ?G70.00 - Myasthenia gravis without (acute) exacerbation (ICD-10) CKD (chronic kidney disease) stage 3, GFR 30-59 ml/min ?N18.30 - Chronic kidney disease, stage 3 unspecified (ICD-10) History of pulmonary embolism ?Z86.711 - Personal history of pulmonary embolism (ICD-10) Hypertension ?I10 - Essential (primary) hypertension (ICD-10) Bladder cancer ?C67.9 - Malignant neoplasm of bladder, unspecified (ICD-10) Pulmonary embolism ?I26.99 - Other pulmonary embolism without acute cor pulmonale (ICD-10) Surgical History Previous back surgery ?Z98.890 - Other specified postprocedural states (ICD-10) History of appendectomy ?Z90.49 - Acquired absence of other specified parts of digestive tract (ICD-10) Family History Mother Family history of cancer Grandmother Family history of diabetes mellitus Father Family history of myocardial infarction Social History Within the past year, how often did you have a drink containing alcohol: monthly or less Within the past year, how many standard drinks containing alcohol did you have on a typical day: 1 or 2 Within the past year, how often did you have six or more drinks on one occasion: never Total score: 0 Score interpretation: A score less than 4 is consistent with normal alcohol consumption. 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 Known occupational exposures/hazards: No Highest level of school completed/degree received: high school graduate Are you now , , , , never or living with a partner: In a typical week, how many times do you talk on the telephone with family, friends, or neighbors: once per week How often do you get together with friends or relatives: once per week How often do you attend evangelical or presybeterian services: never Do you belong to any clubs or organizations such as evangelical groups unions, [employer] or athletic groups, or school groups: no Total score: 1 Score interpretation: A score of less than or equal to 1 indicates the most socially isolated. Little interest or pleasure in doing things: not at all Feeling down, depressed, or hopeless: not at all Feel stressed/tense/nervous/anxious/difficulty sleeping: not at all Due to disability, difficulty making decisions: No Do you think of yourself as: straight/heterosexual Gender Identity: male Meds Home Medications and Allergies Home Medications ?Medication ?Instructions ?Recorded ?Confirmed ?Type apixaban 5 mg tablet (Eliquis) 5 mg PO Q12H 05/09/23 01/27/25 History furosemide 20 mg tablet 40 mg PO DAILY 05/09/23 01/27/25 History loratadine 10 mg tablet (Claritin) 10 mg PO DAILY 05/09/23 12/30/24 History multivitamin 1 tab PO DAILY 05/09/23 01/27/25 History nebivolol 10 mg tablet 10 mg PO DAILY 05/09/23 12/30/24 History omega-3 fatty acids 1,200 mg PO BID 05/09/23 01/27/25 History potassium chloride 10 mEq 20 meq PO DAILY 05/09/23 01/27/25 History tablet,extended release(part/cryst) prednisone 10 mg tablet 15 mg PO DAILY 05/09/23 01/27/25 History pyridostigmine bromide 60 mg tablet 60 mg PO Q6H 05/09/23 01/27/25 History simvastatin 40 mg tablet 40 mg PO DAILY 05/09/23 01/27/25 History gabapentin 300 mg capsule 300 mg PO Q12H 12/18/23 01/27/25 History naloxone 4 mg/actuation nasal 1 spray intranasal Q2M PRN opioid 12/28/23 01/27/25 Rx spray (Narcan) overdose #2 ea clotrimazole 1 % topical cream 1 applic topical BID 09/09/24 01/27/25 History oxycodone-acetaminophen 5 mg-325 1 tab PO DAILY PRN pain 09/09/24 01/27/25 History mg tablet (Percocet) spironolactone 25 mg tablet 25 mg PO DAILY 09/09/24 01/27/25 History baclofen 10 mg tablet mg 01/27/25 History hydralazine 50 mg tablet mg 01/27/25 History lisinopril 20 mg tablet mg 01/27/25 History Allergies Allergy/AdvReac Type Severity Reaction Status Date / Time No Known Drug Allergies Allergy Verified 01/27/25 11:44 Exam Constitutional Documenting provider has reviewed patient's vital signs: yes Common normals: no apparent distress, oriented x3, healthy appearing, alert and well nourished General appearance: cooperative Nutritional appearance: obese HENMT Common normals: normocephalic, hearing grossly normal bilaterally and moist oral mucous membranes Head and scalp: normocephalic Eye Common normals: PERRL Pupil: PERRL Neck & C-Spine Common normals: full ROM General: normal visual inspection Chest Common normals: inspection of chest normal Respiratory Common normals: normal respiratory effort, no retractions and no use of accessory muscles Back & Pelvis Lumbar spine/lower back: ROM limited, pain with ROM, lumbar spinal tenderness, paraspinal muscle tenderness and straight leg raise positive right Sacroiliac joints: SI joint(s) abnormal Other: right sij positive jorge(patricks), gaenslens, thigh thrust, compression test decreased sensation to right L5/S1 strength 4/5 in RLE and 5/5 in LLE Neuro Common normals: oriented x3 Sensorium/orientation: alert Gait (neuro): antalgic and assistive device used (walker) Psych Common normals: mental status grossly normal, thought process normal, cooperative, affect normal, speech normal and activity/motor behavior normal Speech: normal speech Thought process: normal thought process Results Additional Findings Additional findings: If on a controlled substance or opioids, I have checked an [place]AR[place] report on this patient and there are no aberrancies noted in the prescribing history.??If on a controlled substance or opioid a drug screen was completed and reviewed within the last year, and if there has not been a drug screen completed we ordered one today to monitor higher risk, state monitored pain medication use. As part of providing excellent, safe, comprehensive care, the following was completed at our patient's visit: 1. A medication reconciliation and review to ensure accurate knowledge of current/active medications, including asking our patients to inform us about any [id number] medications or herbal remedies/nutritional supplements/alternative remedies. 2. A review to specifically ensure our patients have had annual screening for screening for depression, screening for tobacco use, and screening for unhealthy alcohol use. For concerning screenings had a discussion with the patient, provided patient education, and recommended follow-up with primary care provider when appropriate. If patient noted with a risk of falling, they received education on strength, gait, and balance training to prevent future risk of falling. Portions of this note may have been carried over from the previous visit and updated as appropriate. Please note this office utilizes paper charting in addition to the electronic medical record. A list of current medications, vitals, and PMH is available there as the clinical staff outside of myself do not have access to [employer] charting during the clinic day operations. As part of providing quality comprehensive care the current medications, vitals, and PMH were reviewed in the paper chart. Assessment and Plan Assessment and Plan (1) Sacroiliitis: Assessment and Plan: The patient has had over 3 months of moderate to severe low back and right SIJ pain with functional impairment and inadequate response to conservative care including NSAIDS (unless there are contraindication such as concurrent blood thinners), multiple oral or topical pain medications, and home exercise program/physical therapy.? Patient has completed >6 weeks of guided home exercise program and/or formal physical therapy program without relief of their symptoms.? The Oswestry Disability Index was completed, and the patient scored a 36%.? The patient noted the following:?? moderate to severe pain with standing, walking, sitting, sleeping ? (2) Lumbar stenosis with neurogenic claudication: Plan update lumbar xray with flexion update lumbar mri without contrast refer to NS for evaluation increase gabapentin 600mg BID risks vs benefits reviewed f/u after NS consultation
== END 2025-02-12 14:13 | disposition home or self-care (01) ==
PROVIDERS: PCP Internal Medicine; Visit Provider Nurse Practitioner
DX: M46.1 Sacroiliitis, not elsewhere classified (principal); M48.062 Spinal stenosis, lumbar region with neurogenic claudication
CPT/HCPCS: G0463

== ENCOUNTER 2025-02-24 12:49 | Outpatient (OUT) | payer MEDICARE, SELFPAY ==
--- OUTSIDE RECORDS SUMMARY | 2024-04-09 09:00 | XMS_ITS ---
Author Organization [facility] [place] Address [address] [place] [address] Care Team Providers Care Sound Equipment Mechanic Name Role Phone Patrick BRIDGES, Beni Primary Care Provider UnavailIvan Larson [phone] Encounters Encounter Location Date Provider Diagnosis [facility] [address] [address] 04/09/2024 Ivan Barnhart Plan Of Treatment No Information Progress Notes * Ankur REILLY ADOB: [birth year] (79 yo M)Acc No.[id number]:04/09/2024 UNLOCKED PROGRESS NOTE 0 Patient: Ankur PRESLEY Provider: Yakelin Barnhart MD :1945 A ge:78 Y S ex:Male Date:04/09/2024 Address:[facility] [address], [id number] Pcp:Beni Nguyen MD Subjective: * Chief Complaints: * * Medical History: Objective: * Vitals: Assessment: Plan: * Treatment: * * Electronic signature of Steven Barnhart MD, [id number] on 02/24/2025 at 12:54 PM EDT Sign off status: Pending Visit Status: R /S (Rescheduled) * Provider: Yakelin Barnhart MD Date: 04/09/2024 Generated for Printi ng/Faxing/eTransmitting on: 02/24/2025 12:54 PM EDT
--- OUTSIDE RECORDS SUMMARY | 2024-06-04 04:30 | XMS_ITS ---
Author Organization [facility] in [place] Address [address] [place] [address] Care Team Providers Care Continuity Clerk Name Role Phone Patrick BRIDGES, Beni Primary Care Provider Unavailab Ivan Engle [phone] REASON FOR VISIT Cysto Encounters Encounter Location Date Provider Diagnosis Urology [facility] [address] [address] 06/04/2024 Ivan Barnhart Plan Of Treatment No Information Progress Notes * Ankur REILLY ADOB: [birth year] (79 yo M)Acc No.[id number]:06/04/2024 UNLOCKED PROGRESS NOTE 0 Patient: Ankur PRESLEY Provider: Yakelin Barnhart MD :1945 A ge:78 Y S ex:Male Date:06/04/2024 [address] Pcp:Beni Nguyen MD Subjective: * Chief Complaints: * 1 . Cysto. * Medical History: Objective: * Vitals: Assessment: Plan: * Treatment: * * Electronic signature of Steven Barnhart MD, [id number] on 02/24/2025 at 12:51 PM EDT Sign off status: Pending Visit Status: R /S (Rescheduled) * Provider: Yakelin Barnhart MD Date: 1 Generated for Printi ng/Faxing/eTransmitting on: 0 02/24/2025 12:51 PM EDT
--- OUTSIDE RECORDS SUMMARY | 2024-07-30 07:30 | XMS_ITS ---
Author Organization [facility] in [place] Address [address] [place] [address] Care Team Providers Care Head Sampler Name Role Phone Patrick BRIDGES, Beni Primary Care Provider Unavailab Ivan Engle [phone] REASON FOR VISIT Cysto Encounters Encounter Location Date Provider Diagnosis U[facility] [address] [address] 07/30/2024 Ivan Barnhart Plan Of Treatment No Information Progress Notes * Ankur REILLY ADOB: [birth year] (79 yo M)Acc No.[id number]:07/30/2024 UNLOCKED PROGRESS NOTE 0 Patient: Ankur PRESLEY Provider: Yakelin Barnhart MD :1945 A ge:78 Y S ex:Male Date:07/30/2024 [address] [facility] Pcp:Beni Nguyen MD Subjective: * Chief Complaints: * 1 . Cysto. * Medical History: Objective: * Vitals: Assessment: Plan: * Treatment: * * Electronic signature of Steven Barnhart MD, [id number] on 02/24/2025 at 12:51 PM EDT Sign off status: Pending Visit Status: C ANC (Cancelled) * Provider: Yakelin Barnhart MD Date: 1 09/30/2023 Generated for Printi ng/Faxing/eTransmitting on: 0 02/24/2025 12:51 PM EDT
--- OUTSIDE RECORDS SUMMARY | 2025-02-18 11:30 | XMS_ITS | Encounter Summary ---
Author Organization [facility] Address [address] [place] [address] Care Team Providers Care Emergency Management Coordinator Name Role Phone Beni Nguyen MD Primary Care Provider Beni Nguyen MD Unavailable [phone] Girma Anastasia POMPA Unavailable Reason for Referral * Consultation (Routine) - Authorized Specialty Diagnoses / Procedures Referred By Contluis fernando t Referred To Contact Orthopaedic Surgery Diagnoses Trigger middle finger of right hand Leela Cherry NP [address] [facility] [address] [place] [address] Phone: tel: fax: Wilton Kramer MD [address] [place] [address] [place] [address] Phone: tel: fax: Referral ID Status Reason Start Date Expiration Date Visits Requested Visits Authorized [id number] Authorized Specialty Services Required 02/18/2025 08/17/2025 1 1 Encounter Details Date Type Department Care Team (Late st Contact Info) Description 02/18/2025 11:30 AM EDT Office Visit [facility] [address] [facility] [address] [place] [address] Leela Cherry NP [address] [facility] [address] [place] [address] Cellulitis of right lower extremity (Primary Dx); Muscle pain; Trigger middle finger of right hand; Pain Social History Tobacco Use Types Packs/Day Years [...] Answer Date Recorded Patient Health Questionnaire-2 Score 2 02/18/2025 [facility] - Occupational Stress Questionnaire Answer Date [...] Sign Reading Time Taken Comments Blood Pressure 124/78 02/18/2025 11:45 AM EDT Pulse 84 02/18/2025 11:45 AM EDT Temperature - - Respiratory Rate 18 02/18/2025 11:45 AM EDT Oxygen Saturation 94% 02/18/2025 11:45 AM EDT Inhaled Oxygen Concentration - - Weight 138 kg (305 lb) 02/18/2025 11:45 AM EDT Height 172.7 cm (5' 8 ) 02/18/2025 11:45 AM EDT Body Mass Index 46.38 02/18/2025 11:45 AM EDT documented in this encounter Functional Status * Over the past 2 weeks, how often have you been bothered by any of the following problems? Question Answer Date of Assessment Author Little interest or pleasure in doing things Several days 02/18/2025 11:34 AM EDT LORENA COELLO Feeling down, depressed, or hopeless Several days 02/18/2025 11:34 AM LORENA MONREAL Patient Health Questionnaire -2 Score 2 02/18/2025 11:34 AM EDT LORENA COELLO * If you checked off any problems on this questionnaire so far, Question Answer Date of Assessment Author How difficult have these problems made it for you to do your work, take care of things at home, or get along with other people? Somewhat difficult 02/18/2025 11:34 AM EDT LORENA COELLO documented as of this encounter Progress Notes * Leela Cherry, ANAMARIA - 02/18/2025 11:30 AM EDT Images from the original note were not included. Subjective Patient ID: Ankur Reilly is a 79 y.o. male who presents for No chief complaint on file.. Ankur presents today for having pain that is also making it difficult to walk. This all started aweek ago Monday. He has EMS take him to [place]. He even states that he can't take care of himself. He states she thinks he needs to go to the [employer] for help. Over the past 2 weeks, how often have you been bothered by any of the following problems? Little interest or pleasure in doing things: Several days Feeling down, depressed, or hopeless: Several days Patient Health Questionnaire-2 Score: 2 If you checked off any problems on this questionnaire so far, How difficult have these problems made it for you to do your work, take care of things at home, or get along with other people?: Somewhat difficult Current Outpatient Medications on File Prior to Visit Medication Sig Dispense Refill apixaban (Eliquis) 5 MG tablet TAKE 1 TABLET BY MOUTH TWICE DAILY 180 tablet 3 baclofen (Lioresal) 10 MG tablet TAKE 1 TABLET BY MOUTH WITH FOOD OR MILK 3 TIMES DAILY 270 tablet 1 cephalexin (Keflex) 500 MG capsule Take 500 mg by mouth in the morning and 500 mg before bedtime. furosemide (Lasix) 20 MG tablet Take 1-2 tablets (20-40 mg) by mouth Daily 180 tablet 3 gabapentin (Neurontin) 300 MG capsule TAKE 1 CAPSULE BY MOUTH IN THE MORNING AND 1 CAPSULE BY MOUTHBEFORE BEDTIME 180 capsule 3 hydrALAZINE (Apresoline) 50 MG tablet Take 1 tablet (50 mg) by mouth in the morning and 1 tablet (50 mg) before bedtime. 180 tablet 3 lisinopril 20 MG tablet Take 1 tablet (20 mg) by mouth Daily 90 tablet 3 loratadine (Claritin) 10 MG tablet Take 10 mg by mouth Daily Multiple Vitamins-Minerals (GNP ONE DAILY MENS 50+ADVANCED PO) nystatin (Mycostatin) 629890 UNIT/GM powder omega-3 (Fish Oil) 1000 MG capsule Take 2 capsules by mouth Daily oxyCODONE-acetaminophen (Percocet) 5-325 MG tablet Take 1 tablet by mouth 2 (two) times a day as needed for moderate pain or severe pain 60 tablet 0 potassium chloride CR (Klor-Con M10) 10 MEQ ER tablet TAKE 1 TABLET BY MOUTH IN THE MORNING AND 1 TABLET BY MOUTH BEFORE BEDTIME TAKE WITH FOOD 180 tablet 3 predniSONE (Deltasone) 10 MG tablet TAKE 1 AND 1/2 TABLETS BY MOUTH DAILY 135 tablet 0 pyridostigmine (Mestinon) 60 MG tablet TAKE 1 TABLET BY MOUTH IN THE MORNING AND 1 TABLET BY MOUTH AT NOON AND 1 TABLET BY MOUTH IN THE EVENING AND 1 TABLET BY MOUTH BEFORE BEDTIME 400 tablet 3 simvastatin (Zocor) 40 MG tablet TAKE 1 TABLET BY MOUTH ONCE DAILY IN THE EVENING 90 tablet 3 No current facility-administered medications on file prior to visit. I have reviewed and reconciled the history and medication list with the patient today. No Known Allergies Social History Tobacco Use Smoking status: Never Smokeless tobacco: Never Vaping Use Vaping status: Never Used Substance Use Topics Alcohol use: Yes Drug use: Defer Family History Problem Relation Name Age of Onset Cancer Mother Heart disease Father *denies family hx of MM Heart disease Other Multiple myeloma Neg Hx Past Medical History: Diagnosis Date Acute respiratory failure with hypoxia ([facility]) 11/17/2023 Acute respiratory insufficiency 12/15/2018 d/t Pulmonary Emboli MATT (acute kidney injury) 09/17/2024 Allergic rhinitis due to other allergen Autoimmune disorder ([facility]) Bilateral pulmonary embolism (HCC) 2019 Acute Hypoxic Resp. 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 Cervical radiculopathy at C8 05/2017 CTS (carpal tunnel syndrome) 05/2017 Bilateral Essential hypertension, benign Facial droop Head injury with fracture of skull ([facility]) 09/17/2024 History of being hospitalized 06/19/2024 Myasthenia Gravis Exacerbation, Weakness, Dyspnea History of being hospitalized 07/09/2024 Generalized Weakness, MATT History of being hospitalized 07/28/2024 Syncope, Head injury, Generalized weakness, Hypomagnesemia History of being hospitalized 09/11/2024 Myasthenia Gravis Crisis History of echocardiogram 12/15/2018 EF 60-65%, LVH Hypertension Impaired glucose tolerance test Oral Lumbosacral spondylosis without myelopathy LVH (left ventricular hypertrophy) 12/15/2018 ECHO EF 60-65% Macular edema 2008 /pucker Muscle cramp Myasthenia gravis ([facility]) 12/27/2017 / dyspnea Myasthenic crisis ([facility]) 05/10/2023 Obesity Obstructive sleep apnea (adult) (pediatric) Pulmonary emboli ([facility]) 11/17/2023 Pulmonary embolism ([facility]) 11/2018 Pure hypercholesterolemia Shortness of breath Superficial thrombophlebitis 12/16/2018 Rt Thigh Syncope 09/17/2024 Tremor Troponin I above reference range 11/17/2023 Urothelial carcinoma (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 HENT: Negative. Eyes: Negative. Respiratory: Negative. Cardiovascular: Negative. Gastrointestinal: Negative. Genitourinary: Negative. Musculoskeletal: Positive for back pain, gait problem and myalgias. Skin: Positive for color change. Psychiatric/Behavioral: Negative. Objective Physical Exam Vitals reviewed. Constitutional: Appearance: Normal appearance. HENT: Head: Normocephalic. Nose: Nose normal. Mouth/Throat: Mouth: Mucous membranes are moist. Pharynx: Oropharynx is clear. Eyes: Conjunctiva/sclera: Conjunctivae normal. Cardiovascular: Rate and Rhythm: Normal rate and regular rhythm. Pulmonary: Breath sounds: Normal breath sounds. Abdominal: General: Bowel sounds are normal. Palpations: Abdomen is soft. Musculoskeletal: General: Tenderness present. Comments: Muscle tenderness throughout body. Skin: General: Skin is warm. Findings: Erythema present. Comments: Rt lower leg with erythema and increased warmth. Neurological: General: No focal deficit present. Mental Status: He is alert and oriented to person, place, and time. Psychiatric: Mood and Affect: Mood normal. Behavior: Behavior normal. Thought Content: Thought content normal. Judgment: Judgment normal. Assessment/Plan Diagnoses and all orders for this visit: Cellulitis of right lower extremity - cephalexin (Keflex) 500 MG capsule; Take 1 capsule (500 mg) by mouth in the morning and 1 capsule(500 mg) in the evening and 1 capsule (500 mg) before bedtime. Do all this for 10 days. Take ATB until gone. If the redness and warmth does not improve, come back to the office for further treatment. Muscle pain - CK total and CKMB; Future The hospital made a referral to home health. Pt sent home with a script for lab. It is too difficult for him to get in and out of the home. He does take Simvastatin. Trigger middle finger of right hand - Ambulatory referral to Orthopaedic Surgery; Future Pt's middle finger sticks down and he has to force it to go straight after he squeezes his hand. Pain - oxyCODONE-acetaminophen (Percocet) 5-325 MG tablet; Take 1 tablet by mouth every 6 (six) hours ifneeded for moderate pain or severe pain Pt is seen by pain management. Pain management has been sending in the medication. Will have pt call pain management for refill. No follow-ups on file. documented in this encounter Plan of Treatment Upcoming Encounters Date Type Department Care Team (Late st Contact Info) Description 04/10/2025 3:10 PM EDT Procedure Visit [facility] [address] [facility] [address] [place] [id number] Real Og DPMarcial [address] [facility] [address] [place] [address] Scheduled Orders Name Type Priority Associated Diagnoses Orde r Schedule CK total and CKMB Lab Routine Muscle pain Expected: 02/18/2025 (Approximate), Expires: 02/18/2026 Scheduled Referrals Name Type Priority Associated Diagnoses Order Schedule Ambulatory referral to Orthopaedic Surgery Outpatient Referral Routine Trigger middle finger of right hand Expected: 02/18/2025 (Approximate), Expires: 08/21/2025 documented as of this encounter Visit Diagnoses Diagnosis Cellulitis of right lower extremity- Primary Muscle pain Unspecified myalgia and myositis Trigger middle finger of right hand Pain Generalized pain documented in this encounter Care Teams Emergency Management Coordinator Relationship Specialty Start Date End Date Beni Nguyen MD [address] [facility] [address] [place] [address] PCP - General Internal Medicine 01/02/23 Beni Nguyen MD [address] [facility] [address] [place] [address] PCP - ACO Reach 01/12/23 Anastasia Rayo LPN 112 [facility] [address] [place] [address] 11/08/24 documented as of this encounter
--- OUTSIDE RECORDS SUMMARY | 2025-02-24 12:51 | XMS_ITS | Encounter Summary ---
Author Organization [facility] Address [address] [place] [address] Phone Care Team Providers Care Mutual Funds Agent Name Role Phone Beni Nguyen MD Primary Care Provider [phone] Encounter Details Date Type Department Care Team (Late st Contact Info) Description 08/18/2021 Orders Only [facility] [address] [place] [address] Conversion, Onbase Social History Tobacco Use Types [...] Description 09/25/2025 2:10 PM EST Office Visit [facility] [address] [facility] [address] [place] [phone] Juan C Hoover, DO [address] [place] [address] Scheduled Orders Name Type Priority Associated Diagnoses Orde r Schedule OUTSIDE LAB SCAN Lab Ordered: 08/18/2021 documented as of this encounter Visit Diagnoses Not on filedocumented in this encounter Care Teams Mutual Funds Agent Relationship Specialty Start Date End Date Beni Nguyen MD [address] [place] [address] PCP - General 05/18/23 documented as of this encounter
--- OUTSIDE RECORDS SUMMARY | 2025-02-24 12:51 | XMS_ITS | Encounter Summary ---
Author Organization [facility] Address [address] [place] [address] Care Team Providers Care Honeycomb Blanket Maker Name Role Phone Patrick ARMENTA MD, Beni Hamlin Primary Care Provider [phone] Source Comments In the event this information is protected by the Federal Confidentiality of Alcohol and Drug AbusePatient Records regulations: The Federal rules restrict any use of the information to criminally investigate or prosecute any alcohol or drug abuse patient.[facility] Encounter Details Date Type Department Care [...] on filedocumented in this encounter Care Teams Honeycomb Blanket Maker Relationship Specialty Start Date End Date Beni Nguyen II, MD [address] [place] [address] PCP - General Internal Medicine 12/05/16 documented as of this encounter
--- OUTSIDE RECORDS SUMMARY | 2025-02-24 12:51 | XMS_ITS | Encounter Summary ---
Author Organization [facility] Address [address] [place] [address] Phone Care Team Providers Care Visual Display Associate Name Role Phone Beni Nguyen MD Primary Care Provider [phone] Encounter Details Date Type Department Care Team (Late st Contact Info) Description 08/10/2022 Orders Only [facility] [address] [place] [address] Conversion, Onbase Social History Tobacco Use Types [...] 09/25/2025 2:10 PM EST Office Visit [facility] [address] [place] [phone] Juan C Hoover, DO [address] [place] [address] Scheduled Orders Name Type Priority Associated Diagnoses Orde r Schedule OUTSIDE LAB SCAN Lab Ordered: 08/10/2022 documented as of this encounter Visit Diagnoses Not on filedocumented in this encounter Care Teams Visual Display Associate Relationship Specialty Start Date End Date Beni Nguyen MD [address] [place] [address] PCP - General 05/18/23 documented as of this encounter
--- OUTSIDE RECORDS SUMMARY | 2025-02-24 12:52 | XMS_ITS | Encounter Summary ---
Author Organization [facility] Address [address] [place] [address] Phone Care Team Providers Care Braze Operator Name Role Phone Beni Nguyen MD Primary Care Provider [phone] Encounter Details Date Type Department Care Team (Late st Contact Info) Description 05/16/2023 Scanned Document [facility] [address] [place] [address] Conversion, Onbase Social History Tobacco Use Types [...] Description 09/25/2025 2:10 PM EST Office Visit [facility] [address] [place] [address] Juan C Hoover, [address] [place] [address] documented as of this encounter Procedures Procedure Name Priority Date/Time Associated Diagnosis Comments ECHOCARDIOGRAM 05/16/2023 documented in this encounter Results * ECHOCARDIOGRAM (05/16/2023) Narrative 05/16/2023 Ordered by an unspecified provider. us Onbase Conversion CV ECHO PROCEDURES Final Resul t documented in this encounter Visit Diagnoses Not on filedocumented in this encounter Care Teams Braze Operator Relationship Specialty Start Date End Date Beni Nguyen MD [address] [address] PCP - General 05/18/23 documented as of this encounter
--- OUTSIDE RECORDS SUMMARY | 2025-02-24 12:52 | XMS_ITS | Encounter Summary ---
Author Organization [facility] Address [address] [place] [address] Care Team Providers Care Record Maker Name Role Phone Beni Nguyen MD Primary Care Provider [phone] Beni Nguyen MD Unavailable [phone] Anastasia Rayo LPN Unavailable Encounter Details Date Type Department Care Team (Late st Contact Info) Description 12/31/2024 Abstract [facility] [address] [facility] 110 [place] [address] Beni Nguyen MD 112 [facility] 110 [place] [address] Social History Tobacco Use Types Packs/Day Years [...] Patient Health Questionnaire-2 Score 0 12/05/2024 [facility] Occupat ional Health - [...] Upcoming Encounters Date Type Department Care Team ([facility] Contact Info) Description 04/10/2025 3:10 PM EDT Procedure Visit [facility] [address] [facility] 120 [place] [address] Real Og DPM [address] [facility] 5 [place] [address] documented as of this encounter Visit Diagnoses Not on filedocumented in this encounter Care Teams Record Maker Relationship Specialty Start Date End Date Beni Nguyen MD [address] [facility] 110 [place] [address] PCP - General Internal Medicine 01/02/23 Beni Nguyen MD [address] [facility] 110 [place] [address] PCP - ACO Reach 01/12/23 Anastasia Rayo LPN 112 [facility] 110 [place] [address] 11/08/24 documented as of this encounter
--- OUTSIDE RECORDS SUMMARY | 2025-02-24 12:52 | XMS_ITS | Encounter Summary ---
Author Organization [facility] Address [address] [place] [address] Care Team Providers Care Microsoft Exchange Administrator Name Role Phone Beni Nguyen MD Primary Care Provider [phone] Beni Nguyen MD Unavailable [phone] Esther oCnnolly RN Unavailable Anastasia Rayo LPN Unavailable Encounter Details Date Type Department Care Team (Late st Contact Info) Description 10/31/2024 Abstract [facility] 112 [facility] 110 [place] [address] Beni Nguyen MD 112 [facility] 110 [place], [place] [id number] Social History Tobacco Use Types Packs/Day Years [...] Recorded Patient Health Questionnaire-2 Score 0 10/29/2024 [facility]at ional [facility] - [...] Procedure Visit [facility] [address] [facility] 120 [place] [address] Real Og DPM 3006 [facility] 5 [place] [address] documented as of this encounter Visit Diagnoses Not on filedocumented in this encounter Care Teams Microsoft Exchange Administrator Relationship Specialty Start Date End Date Beni Nguyen MD [address] [facility] 110 [place] [address] PCP - General Internal Medicine 01/02/23 Beni Nguyen MD [address] [facility] 110 [place] [address] PCP - ACO Reach 01/12/23 Esther Connolly, RN [address] [place] [address] Clinical Advocate Family Medicine 09/27/24 11/08/24 Anastasia Rayo LPN [address] [facility] 110 [place] [address] 11/08/24 documented as of this encounter
--- OUTSIDE RECORDS SUMMARY | 2025-02-24 12:52 | XMS_ITS | Encounter Summary ---
Author Organization [facility] Address [address] [place] [address] Phone Care Team Providers Care Aircraft Launch And Recovery Technician Name Role Phone Beni Nguyen MD Primary Care Provider [phone] Encounter Details Date Type Department Care Team (Late st Contact Info) Description 06/10/2023 Scanned Document [facility] [address] [place] [address] Scanning, Generic Provider Social History Tobacco Use [...] Description 09/25/2025 2:10 PM EST Office Visit [facility] 703 [facility] [address] [place] [address] Juan C Hoover, 703 [facility] 2, [address] [place], [place] [address] documented as of this encounter Visit Diagnoses Not on filedocumented in this encounter Care Teams Aircraft Launch And Recovery Technician Relationship Specialty Start Date End Date Beni Nguyen MD [address] [facility] 110 [place] [address] PCP - General 05/18/23 documented as of this encounter
--- OUTSIDE RECORDS SUMMARY | 2025-02-24 12:52 | XMS_ITS | Encounter Summary ---
Author Organization [facility] Address [address] [place] [address] Care Team Providers Care Correction Warden Name Role Phone Beni Nguyen MD Primary Care Provider [phone] Beni Nguyen MD Unavailable [phone] Esther Connolly RN Unavailable Anastasia Rayo LPN Unavailable Encounter Details Date Type Department Care Team (Late st Contact Info) Description 05/11/2023 Abstract [facility] [address] [facility] 110 [place] [address] Beni Nguyen MD 112 [facility] 110 [place], [place] [address] Social History Tobacco Use Types Packs/Day Years [...] CI PODIATRY 112 [facility] 120 [place] [address] Real Og, DPM 3006 [facility] 5 [place] [address] documented as of this encounter Visit Diagnoses Not on filedocumented in this encounter Care Teams Correction Warden Relationship Specialty Start Date End Date Beni Nguyen MD [address] [facility] 110 [place] [address] PCP - General Internal Medicine 01/02/23 Beni Nguyen MD [address] [facility] 110 [place] [address] PCP - ACO Reach 01/12/23 Esther Connolly, HEATHER [address] [place] [address] Clinical Advocate Family Medicine 09/27/24 11/08/24 Anastasia Rayo LPN 112 [place] [address] 11/08/24 documented as of this encounter
--- OUTSIDE RECORDS SUMMARY | 2025-02-24 12:52 | XMS_ITS | Encounter Summary ---
Author Organization [facility] Address [address] [place] [address] Care Team Providers Care Well Logging Operator Mud Analysis Name Role Phone Beni Nguyen MD Primary Care Provider [phone] Beni Nguyen MD Unavailable [phone] Esther Connolly RN Unavailable Anastasia Rayo LPN Unavailable Encounter Details Date Type Department Care Team (Late st Contact Info) Description 05/11/2023 Abstract [facility] [address] [facility] 110 [place] [address] Beni Nguyen MD 112 [facility] 110 [place], [place] [address] Social History Tobacco Use Types Packs/Day Years [...] heating? Not hard at all 03/17/2023 [facility] Health - Occupational [...] PODIATRY 112 [facility] 120 [place] [address] Real Og, DPM 3006 [facility] 5 [place] [address] documented as of this encounter Visit Diagnoses Not on filedocumented in this encounter Care Teams Well Logging Operator Mud Analysis Relationship Specialty Start Date End Date Beni Nguyen MD [address] [facility] 110 [place] [address] PCP - General Internal Medicine 01/02/23 Beni Nguyen MD [address] [facility] 110 [place] [address] PCP - ACO Reach 01/12/23 Esther Connolly, HEATHER [address] [place] [address] Clinical Advocate Family Medicine 09/27/24 11/08/24 Anastasia Rayo LPN 112 [place] [address] 11/08/24 documented as of this encounter
--- OUTSIDE RECORDS SUMMARY | 2025-02-24 12:52 | XMS_ITS | Encounter Summary ---
Author Organization [facility] Address [address] [place] [place] [address] Phone Care Team Providers Care Lead Loader Name Role Phone Beni Nguyen MD Primary Care Provider [phone] Encounter Details Date Type Department Care Team (Late st Contact Info) Description 09/11/2024 Scanned Document [facility] [place] [address] [place] [address] Scanning, Generic Provider Social History Tobacco Use [...] Description 09/25/2025 2:10 PM EST Office Visit [facility] [address] [facility] [address] [place] [address] Juan C Hoover, 703 [facility] 2, [address] [place] [address] documented as of this encounter Procedures Procedure [...] documented as of this encounter Care Teams Lead Loader Relationship Specialty Start Date End Date Beni Nguyen MD 112 [facility] 110 [place] [address] PCP - General 05/18/23 documented as of this encounter
--- OUTSIDE RECORDS SUMMARY | 2025-02-24 12:52 | XMS_ITS | Encounter Summary ---
Author Organization [facility] Address [address] [place] [address] Care Team Providers Care Network Relations Consultant Name Role Phone Beni Nguyen MD Primary Care Provider [phone] Beni Nguyen MD Unavailable [phone] Esther Connolly RN Unavailable Anastasia Rayo LPN Unavailable Encounter Details Date Type Department Care Team (Late st Contact Info) Description 05/11/2023 Abstract [facility] [address] [facility] 110 [place] [address] Beni Nguyen MD [address] [facility] 110 [place], [place] [address] Social History Tobacco Use Types Packs/Day Years [...] any clubs o r organizations such as sabianist groups, unions, fraternal or athletic groups, or [...] and heating? Not hard at all 03/17/2023 [facility] of Occupat ional [...] [facility] 112 [facility] 120 [place] [address] Real Og, DPM 3006 [facility] 5 [place] [address] documented as of this encounter Visit Diagnoses Not on filedocumented in this encounter Care Teams Network Relations Consultant Relationship Specialty Start Date End Date Beni Nguyen MD [address] [facility] 110 [place] [address] PCP - General Internal Medicine 01/02/23 Beni Nguyen MD 112 [facility] 110 [place] [address] PCP - ACO Reach 01/12/23 Esther Connolly, HEATEHR [address] [place] [address] Clinical Advocate Family Medicine 09/27/24 11/08/24 Anastasia Rayo LPN 112 [place] [address] 11/08/24 documented as of this encounter
--- OUTSIDE RECORDS SUMMARY | 2025-02-24 12:52 | XMS_ITS | Encounter Summary ---
Author Organization [facility] Address [address] [place] [address] Care Team Providers Care Leather Skinner Name Role Phone Beni Nguyen MD Primary Care Provider [phone] Beni Nguyen MD Unavailable [phone] Anastasia Rayo LPN Unavailable Encounter Details Date Type Department Care Team (Late st Contact Info) Description 02/18/2025 Patient Outreach [facility] [address] [place] [address] Anastasia Rayo LPN [address] [place] [address] Social History Tobacco Use Types Packs/Day Years [...] any clubs o r organizations such as rastafarian groups, unions, fraternal or athletic groups, or [...] Recorded Patient Health Questionnaire-2 Score 2 02/18/2025 [facility] of Occupat ional Health [...] as of this encounter Functional Status * Over the past 2 weeks, how often have you been bothered by any of the following problems? Question Answer Date of Assessment Author Little interest or pleasure in doing things Several days 02/18/2025 11:34 AM LORENA MONREAL Feeling down, depressed, or hopeless Several days 02/18/2025 11:34 AM LORENA MONREAL Patient Health Questionnaire -2 Score 2 02/18/2025 11:34 AM LORENA MONREAL * If you checked off any problems on this questionnaire so far, Question Answer Date of Assessment Author How difficult have these problems made it for you to do your work, take care of things at home, or get along with other people? Somewhat difficult 02/18/2025 11:34 AM LORENA MONREAL documented as of this encounter Progress Notes * Anastasia Rayo LPN - 02/18/2025 1:51 PM EDT Spoke with pt for outreach for a few minutes before pt handed phone over to spouse. Spouse informs marketing copywriter that pt had been in [facility] 02/13-02/14. He did not improve so they scheduled an appt with Leela Bolanos NP and had appt today. Pt diagnosed with Cellulitis and started on Keflex. Pt and ptsspouse aware to call if symptoms worsen or if no improvement after antibiotic completed. documented in this encounter Plan of Treatment Upcoming Encounters Date Type Department Care Team (Late st Contact Info) Description 04/10/2025 3:10 PM EDT Procedure Visit [facility] [address] [facility] 120 [place] [address] Real Og, DPM 3006 [facility] 5 [place] [address] documented as of this encounter Visit Diagnoses Diagnosis Type 2 diabetes mellitus with diabetic neuropathy, without long-term current use of insulin (HCC)- Primary Benign essential hypertension Essential hypertension, benign documented in this encounter Care Teams Leather Skinner Relationship Specialty Start Date End Date Beni Nguyen MD [address] [facility] 110 [place] [address] PCP - General Internal Medicine 01/02/23 Beni Nguyen MD [address] [facility] 110 [place] [address] PCP - ACO Reach 01/12/23 Anastasia Rayo LPN [address] [facility] 110 [place] [address] 11/08/24 documented as of this encounter
--- OUTSIDE RECORDS SUMMARY | 2025-02-24 12:52 | XMS_ITS | Encounter Summary ---
Author Organization [facility] Address [address] [place] [address] Care Team Providers Care Carding Machine Feeder Name Role Phone Beni Nguyen MD Primary Care Provider [phone] Beni Nguyen MD Unavailable [phone] Anastasia Rayo LPN Unavailable Encounter Details Date Type Department Care Team (Late st Contact Info) Description 02/18/2025 Telephone [facility] [address] [facility] 110 [place] [address] Leela Cherry, MASS COMMUNICATIONS PROFESSOR [address] [facility] 110 [place] [address] Social History Tobacco Use Types Packs/Day Years [...] Recorded Patient Health Questionnaire-2 Score 2 02/18/2025 [facility] of Occupat ional Health [...] Progress Notes * Anastasia Rayo LPN - 02/19/2025 10:08 AM EDT Called pt to let pt know that medication sent in and let pt know he needs to only fill medication through this office and he must be seen every 3 months. No answer message left to call designer writer back. <February 19, 2025, 10:19 - Anastasia Rayo LPN> Pt returned call and has been updated. documented in this encounter Miscellaneous Notes * Addendum Note - TEMITOPE Serrano - 02/18/2025 4:36 PM EDTAddended by: RADHA FERREIRA on: 02/18/2025 04:36 PM Modules accepted: Orders * Telephone Encounter - TEMITOPE Serrano - 02/18/2025 4:34 PM EDT I see where that happened, ok. Let him know that he is to only get the Percocet filled through our office from now on, and he will need to be seen every three months for monitoring. Rx sent. * Telephone Encounter - LORENA COELLO - 02/18/2025 4:14 PM EDT Spoke with patient and he told me pain management only filled it the one time for him and if he wanted to keep getting it fill, it had to go by the PCP because he broke the contract with pain management. Please advise * Telephone Encounter - TEMITOPE Serrano - 02/18/2025 1:05 PM EDT Kibmerly Wright filled the Percocet for him most recently. He will need to reach out to her office for the refill. documented in this encounter Plan of Treatment Upcoming Encounters Date Type Department Care Team (Late st Contact Info) Description 04/10/2025 3:10 PM EDT Procedure Visit [facility] 112 [facility] 120 [place] [address] Real Og, DPM 3[address] [facility] 5 [place] [address] documented as of this encounter Visit Diagnoses Diagnosis Pain Generalized pain documented in this encounter Care Teams Carding Machine Feeder Relationship Specialty Start Date End Date Beni Nguyen MD [address] [facility] 110 [place] [address] PCP - General Internal Medicine 01/02/23 Beni Nguyen MD [address] [facility] 110 [place] [address] PCP - ACO Reach 01/12/23 Anastasia Rayo LPN [address] [facility] 110 [place] [address] 11/08/24 documented as of this encounter
--- OUTSIDE RECORDS SUMMARY | 2025-02-24 12:52 | XMS_ITS | Clinical Summary ---
Author Organization [facility] Address [address] [place] [address] Care Team Providers Care Quality Assurance Nurse Name Role Phone Beni Nguyen MD Primary Care Provider [phone] Allergies No known active allergies Medications loratadine (CLARITIN REDITABS) 10 MG dissolvable tablet Take by mouth 02/17/2022 Active [place]-3 Fatty Acids (FISH OIL) 1200 MG CAPS [...] season) 2024 05/24/2021, 11/09/2020, 10/18/2020 Flu vaccine (#1) 03/21/2025 05/19/2021, , 05/27/2019, Additional history exists Polio vaccine Aged Out No longer domo omss based on patient's age to complete this topic Insurance MEDICARE [employer] MEDICARE SUPP Advance Directives * Full Code (Latest Code Status on File) Date Activated Date Inactivated Comments 10/15/2022 7:20 PM 10/18/2022 5:43 PM Care Teams Quality Assurance Nurse Relationship Specialty Start Date End Date Beni Nguyen MD [address] [place] [address] PCP - General Internal Medicine 10/14/22
--- OUTSIDE RECORDS SUMMARY | 2025-02-24 12:52 | XMS_ITS | Encounter Summary ---
Author Organization [facility] Address [address] [place] [address] Care Team Providers Care Hydraulic Jack Mechanic Name Role Phone Beni Nguyen MD Primary Care Provider [phone] Beni Nguyen MD Unavailable [phone] Anastasia Rayo LPN Unavailable Encounter Details Date Type Department Care Team (Latest Contact Info) Description 02/18/2025 Travel Social History Tobacco Use Types Packs/Day [...] often do you attend chur ch or pentecostal services? Never 03/17/2023 Do you belong to [...] Recorded Patient Health Questionnaire-2 Score 2 02/18/2025 [facility] of Occupat ional Health - [...] LORENA MONREAL documented as of this encounter Plan of Treatment Upcoming Encounters Date Type Department Care Team (Late st Contact Info) Description 04/10/2025 3:10 PM EDT Procedure Visit [facility] 112 [facility] 120 [place] [address] Real Og DPM 3001 [facility] 5 [place] [address] documented as of this encounter Visit Diagnoses Not on filedocumented in this encounter Care Teams Hydraulic Jack Mechanic Relationship Specialty Start Date End Date Beni Nguyen MD [address] [facility] 110 [place] [address] PCP - General Internal Medicine 01/02/23 Beni Nguyen MD [address] [facility] 110 [place] [address] PCP - ACO Reach 01/12/23 Anastasia Rayo LPN [address] [facility] 110 [place] [address] 11/08/24 documented as of this encounter
--- OUTSIDE RECORDS SUMMARY | 2025-02-24 12:52 | XMS_ITS | Encounter Summary ---
Author Organization [facility] Address [address] [place] [address] Care Team Providers Care Lehr Tender Name Role Phone Beni Nguyen MD Primary Care Provider [phone] Beni Nguyen MD Unavailable Anastasia Rayo LPN Unavailable Encounter Details Date Type Department Care Team (Late st Contact Info) Description 02/18/2025 [employer] flowsheet [facility] [address] [facility] 110 [place] [address] Leela Cherry, CANE FLUME WATCHER [address] [facility] 110 [place] [address] Social History Tobacco Use Types Packs/Day Years [...] often do you attend chur ch or catholic services? Never 03/17/2023 Do you [...] Visit [facility] [address] [facility] 120 [place] [address] Real Og DPM 3006 [facility] 5 [place] [address] documented as of this encounter Visit Diagnoses Not on filedocumented in this encounter Care Teams Lehr Tender Relationship Specialty Start Date End Date Beni Nguyen MD [address] [facility] [place] [address] PCP - General Internal Medicine 01/02/23 Beni Nguyen MD [address] [facility] 110 [place] [address] PCP - ACO Reach 01/12/23 Anastasia Rayo LPN 112 [facility] 110 [place] [address] 11/08/24 documented as of this encounter
--- OUTSIDE RECORDS SUMMARY | 2025-02-24 12:52 | XMS_ITS | Encounter Summary ---
Author Organization [facility] Address [address] [place] [address] Care Team Providers Care Church Organist Name Role Phone Beni Nguyen MD Primary Care Provider [phone] Beni Nguyen MD Unavailable [phone] Anastasia Rayo LPN Unavailable Encounter Details Date Type Department Care Team (Late st Contact Info) Description 12/18/2024 Abstract [facility] [address] [facility] [address] [place] [address] Beni Nguyen MD 112 [facility] 110 [place] [address] Social History Tobacco Use Types Packs/Day Years [...] How often do you attend chur or cheondoism services? Never 03/17/2023 Do you [...] Recorded Patient Health Questionnaire-2 Score 0 12/05/2024 [facility] of Occupat ional Health - [...] Upcoming Encounters Date Type Department Care Team ([facility] Contact Info) Description 04/10/2025 3:10 PM EDT Procedure Visit [facility] [address] [facility] 120 [place] [address] Real Og DPM 3006 [facility] 5 [place] [address] documented as of this encounter Visit Diagnoses Not on filedocumented in this encounter Care Teams Church Organist Relationship Specialty Start Date End Date Beni Nguyen MD [address] [facility] 110 [place] [address] PCP - General Internal Medicine 01/02/23 Beni Nguyen MD [address] [facility] 110 [place] [address] PCP - ACO Reach 01/12/23 Anastasia Rayo LPN 112 [facility] 110 [place] [address] 11/08/24 documented as of this encounter
--- OUTSIDE RECORDS SUMMARY | 2025-02-24 12:52 | XMS_ITS | Encounter Summary ---
Author Organization [facility] Address [address] [place] [address] Phone Care Team Providers Care Lining Setter Name Role Phone Beni Nguyen MD Primary Care Provider Encounter Details Date Type Department Care Team (Late st Contact Info) Description 07/31/[address] [facility] [address] [place] [phone] Scanning, Generic Provider Social History Tobacco Use [...] Office Visit [facility] 703 [facility] [address] [place] [address] Juan C Hoover, 703 [facility] 2, [address] [place], [place] [id number] documented as of this encounter Visit Diagnoses Not on filedocumented in this encounter Care Teams Lining Setter Relationship Specialty Start Date End Date Beni Nguyen MD [address] [facility] 110 [place] [address] PCP - General 05/18/23 documented as of this encounter
--- OUTSIDE RECORDS SUMMARY | 2025-02-24 12:52 | XMS_ITS | Encounter Summary ---
Author Organization [facility] Address [address] [place] [address] Phone Care Team Providers Care Venetian Blind Tape Cutter Name Role Phone Beni Nguyen MD Primary Care Provider [phone] Encounter Details Date Type Department Care Team (Late st Contact Info) Description 05/21/2023 Scanned Document [facility] [address] [place] [phone] Scanning, Generic Provider Social History Tobacco Use [...] Description 09/25/2025 2:10 PM EST Office Visit [facility] 703 [facility] [address] [place] [address] Juan C Hoover, 703 [facility] 2, [address] [place], [place] [phone] documented as of this encounter Visit Diagnoses Not on filedocumented in this encounter Care Teams Venetian Blind Tape Cutter Relationship Specialty Start Date End Date Beni Nguyen MD [address] [facility] 110 [place] [address] PCP - General 05/18/23 documented as of this encounter
--- OUTSIDE RECORDS SUMMARY | 2025-02-24 12:52 | XMS_ITS | Encounter Summary ---
Author Organization [facility] Address [address] [facility] [place] [address] Care Team Providers Care Rafter Cutting Machine Operator Name Role Phone Beni Nguyen MD Primary Care Provider [phone] Beni Nguyen MD Unavailable [phone] Esther Connolly RN Unavailable Anastasia Rayo LPN Unavailable Encounter Details Date Type Department Care Team (Late st Contact Info) Description 10/31/2024 Abstract [facility] 112 [facility] 110 [place] [address] Beni Nguyen MD 112 [facility] 110 [place], [place] [address] Social History Tobacco Use Types Packs/Day Years [...] Recorded Patient Health Questionnaire-2 Score 0 10/29/2024 [facility] of Occupat ional [...] Procedure Visit [facility] 112 [facility] [facility] 120 [place] [address] Real Og DPM 3006 [facility] 5 [place] [address] documented as of this encounter Visit Diagnoses Not on filedocumented in this encounter Care Teams Rafter Cutting Machine Operator Relationship Specialty Start Date End Date Beni Nguyen MD [address] [facility] 110 [place] [address] PCP - General Internal Medicine 01/02/23 Beni Nguyen MD [address] [facility] 110 [place] [address] PCP - ACO Reach 01/12/23 Esther Connolly, RN [address] [place] [address] Clinical Advocate Family Medicine 09/27/24 11/08/24 Anastasia Rayo LPN [address] [facility] 110 [place] [address] 11/08/24 documented as of this encounter
--- OUTSIDE RECORDS SUMMARY | 2025-02-24 12:52 | XMS_ITS | Encounter Summary ---
Author Organization [facility] Address [address] [place] [address] Care Team Providers Care Cashier Manager Name Role Phone Beni Nguyen MD Primary Care Provider [phone] Beni Nguyen MD Unavailable [phone] Anastasia Rayo LPN Unavailable Encounter Details Date Type Department Care Team (Late st Contact Info) Description 02/14/2025 Abstract [facility] 112 [address] [facility] 110 [place] [address] Beni Nguyen MD 112 [facility] 110 [place] [address] Social History Tobacco Use Types Packs/Day Years [...] Recorded Patient Health Questionnaire-2 Score 2 02/18/2025 [facility] of Occupat ional Health [...] Department Care Team ([facility] Contact Info) Description 04/10/2025 3:10 PM EDT Procedure Visit [facility] [address] [facility] 120 [place] [address] Real Og DPM 3006 [facility] 5 [place] [address] documented as of this encounter Visit Diagnoses Not on filedocumented in this encounter Care Teams Cashier Manager Relationship Specialty Start Date End Date Beni Nguyen MD [address] [facility] 110 [place] [address] PCP - General Internal Medicine 01/02/23 Beni Nguyen MD [address] [facility] 110 [place] [address] PCP - ACO Reach 01/12/23 Anastasia Rayo LPN 112 [facility] 110 [place] [address] 11/08/24 documented as of this encounter
--- OUTSIDE RECORDS SUMMARY | 2025-02-24 12:52 | XMS_ITS | Encounter Summary ---
Author Organization [facility] Address [address] [place] [facility] [place] [address] Care Team Providers Care Tax Revenue Officer Name Role Phone Beni Nguyen MD Primary Care Provider [phone] Beni Nguyen MD Unavailable [phone] Esther Connolly RN Unavailable Anastasia Rayo LPN Unavailable Encounter Details Date Type Department Care Team (Late st Contact Info) Description 11/05/2024 Abstract [facility] 112 [facility] 110 [place] [address] Beni Nguyen MD 112 [facility] 110 [place], [place] [address] Social History Tobacco Use Types Packs/Day Years [...] Recorded Patient Health Questionnaire-2 Score 0 10/29/2024 [facility] of Occupat ional Health [...] ([facility] Contact Info) Description 04/10/2025 3:10 PM EDT Procedure Visit [facility] 112 [address] [facility] 120 [place] [address] Real Og DPM 3006 [facility] 5 [place] [address] documented as of this encounter Visit Diagnoses Not on filedocumented in this encounter Care Teams Tax Revenue Officer Relationship Specialty Start Date End Date Beni Nguyen MD [address] [facility] 110 [place] [address] PCP - General Internal Medicine 01/02/23 Beni Nguyen MD [address] [facility] 110 [place] [address] PCP - ACO Reach 01/12/23 Esther Connolly, RN [address] [place] [address] Clinical Advocate Family Medicine 09/27/24 11/08/24 Anastasia Rayo LPN [address] [facility] 110 [place] [address] 11/08/24 documented as of this encounter
--- OUTSIDE RECORDS SUMMARY | 2025-02-24 12:52 | XMS_ITS | Clinical Summary ---
Author Organization [facility] Address [address] [place] [address] Phone Care Team Providers Care Drum Sander Offbearer Name Role Phone Beni Nguyen MD Primary Care Provider [phone] Allergies Active Allergy Reactions Criticality Noted Date Comments Nebivolol Hallucinations High 09/24/2024 Medications multivit-min/fe rrous fumarate (MULTI VITAMIN ORAL) Take 1 tablet [...] capsule by mouth once daily. Active omega 3-xug-xzo-fish oil 360 mg-108 mg- 180 mg-1,200 mg [...] Emergency refill Active furosemide (Lasix) 20 mg tabletIndicatio ns:Localized edema Take 2 tablets (40 mg) by mouth once daily. 60 tablet 11 5 11/05/19 26 Active nystatin (Mycostatin) 100,000 unit/gram powder Apply 1 Application topically if needed for itching or rash. Active oxyCODONE-aceta minophen (Percocet) 5-325 mg tablet Take 1 tablet by mouth every 6 hours if needed for severe pain (7 - 10). Active spironolactone (Aldactone) 25 mg tabletIndicatio ns:Localized edema Take 1 tablet (25 mg) by mouth once daily. 90 tablet 3 5 01/16/20 Active Active Problems Problem Noted Date Diagnosed Date Never smoked tobacco 09/24/2024 Paroxysmal atrial fibrillation (Multi) Assessment & Plan (11/04/2024 4:28 PM EDT): [...] Description 01/15/2025 10:00 AM EDT Office Visit [facility] [address] [place] [phone] Melonie Rizvi, DESIGN TECH-TOOL AND DIE REPAIR BMI 45.0-49.9, adult (Multi) (Primary Dx); Localized edema 01/15/2025 Travel from Last 3 Months Immunizations Immunization Administration [...] Description 09/25/2025 2:10 PM EST Office Visit [facility] 703 [facility] [address] [place] [address] Juan C Hoover DO 703 [facility] 2, [address] [place] [address] Health Maintenance Due Date Last Done Comments Medicare Annual Wellness Visit (AWV) 1945 Diabetes Screening 1961 DTaP/Tdap/Td Vaccines (1 - Tdap) 1965 Zoster Vaccines (2 of 3) 07/03/2012 05/08/2012 RSV High Risk: (Elderly (60+) or Population) (1 - 1-dose 75+ series) 2018 COVID-19 Vaccine (3 - season) 2024 09/29/2023, 07/21/2022 Echocardiogram 05/16/2024 05/16/2023, 03/25/2020 Influenza Vaccine (#1) 2025 , 06/05/2024, 07/13/2022, Additional history exists Creatinine Level 11/08/2025 11/08/2024 Potassium Level 11/08/2025 11/08/2024 Lipid Panel 09/25/2028 09/25/2023 Pneumococcal Vaccine Completed 11/30/2017, 05/21/2017, 05/21/2016, Additional history exists HIB Vaccines Aged Out [...] GLUCOSE 169(H) 65 - 99 mg/dL [facility] Comment: Fasting reference interval For someone without known diabetes, a glucose value >125 mg/dL indicates that they may have diabetes and this should be confirmed with a follow-up test. UREA NITROGEN (BUN) 17 7 - 25 mg/dL [facility] CREATININE 1.03 0.70 - 1.22 mg/dL [facility] EGFR 73 > OR = 60 mL/min/1. 73m2 [facility] BUN/CREATININE RATIO SEE NOTE: 6 - 22 (calc) [facility] Comment: Not Reported: BUN and Creatinine are within reference range. SODIUM 142 135 - 146 mmol/L [facility] POTASSIUM 3.6 3.5 - 5.3 mmol/L [facility] CHLORIDE 101 98 - 110 mmol/L [facility] CARBON DIOXIDE 29 20 - 32 mmol/L [facility] ELECTROLYTE BALANCE 12 7 - 17 mmol/L (calc) [facility] CALCIUM 9.1 8.6 - 10.3 mg/dL [facility] Blood Venous blood specimen / Unknown 11/08/2024 10:26 AM EDT 11/08/2024 10:27 AM EDT Melonie Rizvi DESIGN TECH-TOOL AND DIE REPAIR LAB BLOOD ORDERABLES Julianna ambrocio Result [facility] [address] [place] [address] * ECHOCARDIOGRAM (05/16/2023) Narrative 05/16/2023 Ordered by an unspecified provider. us Onbase Conversion CV ECHO PROCEDURES Final Resul t from Last 3 Months or Most Recently Relevant to Health Maintenance Insurance MEDICARE PART A AND B [facility] Care Teams Drum Sander Offbearer Relationship Specialty Start Date End Date Beni Nguyen MD [address] [place] [address] PCP - General 05/18/23
--- OUTSIDE RECORDS SUMMARY | 2025-02-24 12:52 | XMS_ITS | Clinical Summary ---
Author Organization [employer] Address [id number] [address] [place] [address] Care Team Providers Care Farmer Tree Fruit And Nut Crops Name Role Phone Beni Nguyen MD Primary Care Provider [phone] Allergies No known active allergies Medications omega-3 [...] Medical Devices Not on file Insurance MEDICARE [facility] Care Teams Farmer Tree Fruit And Nut Crops Relationship Specialty Start Date End Date Beni Nguyen MD 112 [facility] 110 [place] [address] PCP - General Internal Medicine 10/02/19
--- OUTSIDE RECORDS SUMMARY | 2025-02-24 12:52 | XMS_ITS | Encounter Summary ---
Author Organization [facility] Address [address] [place] [address] Care Team Providers Care Traffic Agent Name Role Phone Beni Nguyen MD Primary Care Provider [phone] Beni Nguyen MD Unavailable [phone] Anastasia Rayo LPN Unavailable Encounter Details Date Type Department Care Team (Late st Contact Info) Description 12/11/2024 Abstract [facility] 112 [address] [facility] 110 [place] [address] Beni Nguyen MD 112 [facility] 110 [place] [address] Social History Tobacco Use Types Packs/Day Years [...] Recorded Patient Health Questionnaire-2 Score 0 12/05/2024 [facility] of Occupat ional [...] PODIATRY [address] [facility] 120 [place] [address] Real Og DPM 3006 [facility] 5 [place] [address] documented as of this encounter Visit Diagnoses Not on filedocumented in this encounter Care Teams Traffic Agent Relationship Specialty Start Date End Date Beni Nguyen MD [address] [facility] 110 [place] [address] PCP - General Internal Medicine 01/02/23 Beni Nguyen MD [address] [facility] 110 [place] [address] PCP - ACO Reach 01/12/23 Anastasia Rayo LPN 112 [facility] 110 [place] [address] 11/08/24 documented as of this encounter
--- OUTSIDE RECORDS SUMMARY | 2025-02-24 12:52 | XMS_ITS | Encounter Summary ---
Author Organization [facility] Address [address] [place] [address] Care Team Providers Care Relay Motorman Name Role Phone Beni Nguyen MD Primary Care Provider [phone] Beni Nguyen MD Unavailable [phone] Anastasia Rayo LPN Unavailable Encounter Details Date Type Department Care Team (Late st Contact Info) Description 01/08/2025 Abstract [facility] 112 [address] [facility] 110 [place] [address] Beni Nguyen MD 112 [facility] 110 [place] [address] Social History Tobacco Use Types Packs/Day Years [...] Recorded Patient Health Questionnaire-2 Score 0 12/05/2024 [facility] of Occupat ional Health [...] Upcoming Encounters Date Type Department Care Team ([facility] Contact Info) Description 04/10/2025 3:10 PM EDT Procedure Visit [facility] [address] [facility] 120 [place] [address] Real Og DPM 3006 [facility] 5 [place] [address] documented as of this encounter Visit Diagnoses Not on filedocumented in this encounter Care Teams Relay Motorman Relationship Specialty Start Date End Date Beni Nguyen MD [address] [facility] 110 [place] [address] PCP - General Internal Medicine 01/02/23 Beni Nguyen MD [address] [facility] 110 [place] [address] PCP - ACO Reach 01/12/23 Anastasia Rayo LPN 112 [facility] 110 [place] [address] 11/08/24 documented as of this encounter
--- OUTSIDE RECORDS SUMMARY | 2025-02-24 12:52 | XMS_ITS | Encounter Summary ---
Author Organization [facility] Address [address] [place] [address] Care Team Providers Care Telecommunications Clerk Name Role Phone Beni Nguyen MD Primary Care Provider [phone] Beni Nguyen MD Unavailable [phone] Esther Connolly RN Unavailable Anastasia Rayo LPN Unavailable Encounter Details Date Type Department Care Team (Late st Contact Info) Description 05/11/2023 Abstract [facility] 112 [address] [facility] 110 [place] [address] Beni Nguyen MD 112 [facility] 110 [place], [place] [address] Social History Tobacco Use Types Packs/Day Years [...] often do you attend chur ch or hinduism services? Never 03/17/2023 Do you [...] and heating? Not hard at all 03/17/2023 [facility] of Occupat ional Health - [...] Procedure Visit [facility]OD[facility] 112 [facility] 120 [place] [address] Real Og, DPM 3006 [facility] 5 [place] [address] documented as of this encounter Visit Diagnoses Not on filedocumented in this encounter Care Teams Telecommunications Clerk Relationship Specialty Start Date End Date Beni Nguyen MD [address] [facility] 110 [place] [address] PCP - General Internal Medicine 01/02/23 Beni Nguyen MD [address] [facility] 110 [place] [address] PCP - ACO Reach 01/12/23 Esther Connolly, HEATHER [address] [place] [address] Clinical Advocate Family Medicine 09/27/24 11/08/24 Anastasia Rayo LPN 112 [place] [address] 11/08/24 documented as of this encounter
--- OUTSIDE RECORDS SUMMARY | 2025-02-24 12:52 | XMS_ITS | Encounter Summary ---
Author Organization [facility] Address [address] [place] [address] Care Team Providers Care Supplier Quality Name Role Phone Beni Nguyen MD Primary Care Provider [phone] Beni Nguyen MD Unavailable [phone] Anastasia Rayo LPN Unavailable Encounter Details Date Type Department Care Team (Late st Contact Info) Description 02/14/2025 Abstract [facility] [address] [facility] 110 [place] [address] Beni Nguyen MD 112 [facility] 110 [place] [address] Social History Tobacco Use Types Packs/Day Years [...] Recorded Patient Health Questionnaire-2 Score 2 02/18/2025 [facility] of Occupat ional Health [...] Visit [facility] CI PODIATRY [address] [facility] 120 [place] [address] Real Og DPM 3006 [facility] 5 [place] [address] documented as of this encounter Visit Diagnoses Not on filedocumented in this encounter Care Teams Supplier Quality Relationship Specialty Start Date End Date Beni Nguyen MD [address] [facility] 110 [place] [address] PCP - General Internal Medicine 01/02/23 Beni Nguyen MD [address] [facility] 110 [place] [address] PCP - ACO Reach 01/12/23 Anastasia Rayo LPN 112 [facility] 110 [place] [address] 11/08/24 documented as of this encounter
--- OUTSIDE RECORDS SUMMARY | 2025-02-24 12:52 | XMS_ITS | Encounter Summary ---
Author Organization [facility] Address [address] [place] [address] Phone Care Team Providers Care Furnace Cleaner Name Role Phone Beni Nguyen MD Primary Care Provider [phone] Encounter Details Date Type Department Care Team (Late st Contact Info) Description 09/13/2024 Scanned Document [facility] [address] [place] [phone] Scanning, Generic Provider Social History Tobacco Use [...] Description 09/25/2025 2:10 PM EST Office Visit [place] [address] [facility] [address] [place] [address] Juan C Hoover DO 703 [facility] 2, [address] [place] [address] documented as of this encounter Visit Diagnoses Not on filedocumented in this encounter Additional Health Concerns Assessment Noted Time A fall risk assessment has been complete d for the patient 09/20/2023 12:14 PM EST documented as of this encounter Care Teams Furnace Cleaner Relationship Specialty Start Date End Date Beni Nguyen MD [address] [place] [address] PCP - General 05/18/23 documented as of this encounter
--- OUTSIDE RECORDS SUMMARY | 2025-02-24 12:52 | XMS_ITS | Encounter Summary ---
Author Organization [facility] Address [address] [place] [address] Phone Care Team Providers Care Recreational Facilities Motel Manager Name Role Phone Beni Nguyen MD Primary Care Provider [phone] Encounter Details Date Type Department Care Team (Late st Contact Info) Description 07/28/2024 Scanned Document [facility] [address] [place] [phone] Scanning, Generic Provider Social History Tobacco Use [...] Description 09/25/2025 2:10 PM EST Office Visit [place] [id number] [facility] 250 [place] [address] Juan C Hoover, 703 [facility] 2, [address] [place] [address] Scheduled Orders Name Type Priority Associated Diagnoses Orde r Schedule Ultrasound- OnBase Scan Imaging O rdered: 07/28/2024 documented as of this encounter Visit Diagnoses Not on filedocumented in this encounter Additional Health Concerns Assessment Noted Time A fall risk assessment has been complete d for the patient 09/20/2023 12:14 PM EST documented as of this encounter Care Teams Recreational Facilities Motel Manager Relationship Specialty Start Date End Date Beni Nguyen MD 112 [facility] 110 [place] [address] PCP - General 05/18/23 documented as of this encounter
--- OUTSIDE RECORDS SUMMARY | 2025-02-24 12:52 | XMS_ITS | Encounter Summary ---
Author Organization [facility] Address [address] [place] [address] Phone Care Team Providers Care Commodity Broker Name Role Phone Beni Nguyen MD Primary Care Provider [phone] Encounter Details Date Type Department Care Team (Late st Contact Info) Description 10/14/2024 Scanned Document [facility] [address] [place] [address] Scanning, Generic Provider Social History Tobacco Use [...] Description 09/25/2025 2:10 PM EST Office Visit [facility] 703 [facility] [address] [place] [address] Juan C Hoover DO 703 [facility] 2, [address] [place] [address] documented as of this encounter [...] documented as of this encounter Care Teams Commodity Broker Relationship Specialty Start Date End Date Beni Nguyen MD 112 [place] [address] PCP - General 05/18/23 documented as of this encounter
--- OUTSIDE RECORDS SUMMARY | 2025-02-24 12:52 | XMS_ITS | Encounter Summary ---
Author Organization [facility] Address [address] [place] [address] Care Team Providers Care Metal Tile Setter Name Role Phone Beni Nguyen MD Primary Care Provider [phone] Beni Nguyen MD Unavailable [phone] Esther Connolly RN Unavailable [phone] Anastasia Rayo LPN Unavailable Encounter Details Date Type Department Care Team (Late st Contact Info) Description 05/11/2023 Abstract [facility] 112 [facility] 110 [place] [address] Bein Nguyen MD 112 [facility] 110 [place], [place] [address] Social History Tobacco Use Types Packs/Day Years [...] often do you attend chur ch or rastafarian services? Never 03/17/2023 Do you [...] CI PODIATRY 112 [facility] 120 [place] [address] Real Og, DPM 3006 [facility] 5 [place] [address] documented as of this encounter Visit Diagnoses Not on filedocumented in this encounter Care Teams Metal Tile Setter Relationship Specialty Start Date End Date Beni Nguyen MD [address] [facility] 110 [place] [address] PCP - General Internal Medicine 01/02/23 Beni Nguyen MD [address] [facility] 110 [place] [address] PCP - ACO Reach 01/12/23 Esther Connolly, HEATHER [address] [place] [address] Clinical Advocate Family Medicine 09/27/24 11/08/24 Anastasia Rayo LPN 112 [place] [address] 11/08/24 documented as of this encounter
--- OUTSIDE RECORDS SUMMARY | 2025-02-24 12:52 | XMS_ITS | Encounter Summary ---
Author Organization [facility] Address [address] [place] [address] Care Team Providers Care Hog Counter Name Role Phone Beni Nguyen MD Primary Care Provider Beni Nguyen MD Unavailable [phone] Anastasia Rayo LPN Unavailable Encounter Details Date Type Department Care Team (Late st Contact Info) Description 12/31/2024 Abstract [facility] [address] [facility] 110 [place] [address] Beni Nguyen MD 112 [facility] 110 [place] [address] Social History Tobacco Use Types Packs/Day Years [...] Patient Health Questionnaire-2 Score 0 12/05/2024 [facility] of Occupat ional Health - [...] Encounters Date Type Department Care Team ([facility] Contact Info) Description 04/10/2025 3:10 PM EDT Procedure Visit [facility] [address] [facility] 120 [place] [address] Real Og DPM 3006 [facility] 5 [place] [address] documented as of this encounter Visit Diagnoses Not on filedocumented in this encounter Care Teams Hog Counter Relationship Specialty Start Date End Date Beni Nguyen MD [address] [facility] 110 [place] [address] PCP - General Internal Medicine 01/02/23 Beni Nguyen MD [address] [facility] 110 [place] [address] PCP - ACO Reach 01/12/23 Anastasia Rayo LPN 112 [facility] 110 [place] [address] 11/08/24 documented as of this encounter
--- OUTSIDE RECORDS SUMMARY | 2025-02-24 12:52 | XMS_ITS | Encounter Summary ---
Author Organization [facility] Address [address] [place] [address] Care Team Providers Care Cuff Slitter Name Role Phone Beni Nguyen MD Primary Care Provider [phone] Beni Nguyen MD Unavailable [phone] Anastasia Rayo LPN Unavailable Encounter Details Date Type Department Care Team (Late st Contact Info) Description 02/24/2025 Abstract [facility] [address] [facility] 110 [place] [address] Beni Nguyen MD 112 [facility] 110 [place] [address] Social History Tobacco Use Types Packs/Day Years [...] Recorded Patient Health Questionnaire-2 Score 2 02/18/2025 [facility] of Occupat ional Health - [...] Upcoming Encounters Date Type Department Care Team ([facility] Contact Info) Description 04/10/2025 3:10 PM EDT Procedure Visit [facility] [address] [facility] 120 [place] [address] Real Og DPM 3[address] [facility] 5 [place] [address] documented as of this encounter Visit Diagnoses Not on filedocumented in this encounter Care Teams Cuff Slitter Relationship Specialty Start Date End Date Beni Nguyen MD [address] [facility] 110 [place] [address] PCP - General Internal Medicine 01/02/23 Beni Nguyen MD [address] [facility] 110 [place] [address] PCP - ACO Reach 01/12/23 Anastasia Rayo LPN 112 [facility] 110 [place] [address] 11/08/24 documented as of this encounter
--- OUTSIDE RECORDS SUMMARY | 2025-02-24 12:52 | XMS_ITS | Encounter Summary ---
Author Organization [facility] Address [address] [place] [address] Care Team Providers Care City Magistrate Name Role Phone Beni Nguyen MD Primary Care Provider [phone] Beni Nguyen MD Unavailable [phone] Anastaisa Rayo LPN Unavailable Encounter Details Date Type Department Care Team (Late st Contact Info) Description 02/17/2025 Abstract [facility] [address] [facility] 110 [place] [address] Beni Nguyen MD [address] [facility] 110 [place] [address] Social History Tobacco Use Types Packs/Day Years [...] How often do you attend chur or mu-ism services? Never 03/17/2023 Do you [...] Recorded Patient Health Questionnaire-2 Score 2 02/18/2025 [facility] of Occupat ional Health - [...] CI PODIATRY [address] [facility] [address] [place] [address] Real Og, DPM 3006 [facility] 5 [place] [address] documented as of this encounter Visit Diagnoses Not on filedocumented in this encounter Care Teams City Magistrate Relationship Specialty Start Date End Date Beni Nguyen MD [address] [facility] 110 [place] [address] PCP - General Internal Medicine 01/02/23 Beni Nguyen MD [address] [facility] 110 [place] [address] PCP - ACO Reach 01/12/23 Anastasia Rayo LPN [address] [facility] 110 [place] [address] 11/08/24 documented as of this encounter
--- OUTSIDE RECORDS SUMMARY | 2025-02-24 12:53 | XMS_ITS | Encounter Summary ---
Author Organization [facility] Address [address] [place] [address] Care Team Providers Care Bus Aide Name Role Phone Beni Nguyen MD Primary Care Provider [phone] Beni Nguyen MD Unavailable [phone] Esther Connolly RN Unavailable [phone] Anastasia Rayo LPN Unavailable Encounter Details Date Type Department Care Team (Late st Contact Info) Description 07/18/2023 Abstract [facility] [address] [facility] 110 [place] [address] Beni Nguyen MD 112 [facility] 110 [place], [place] [address] Social History Tobacco Use Types Packs/Day Years [...] often do you attend chur ch or zoroastrianism services? Never 03/17/2023 Do you belong to [...] and heating? Not hard at all 03/17/2023 [facility] of Occupat ional Health - Occupational [...] PODIATRY 112 [facility] 120 [place] [address] Real Og, DPM 3006 [facility] 5 [place] [address] documented as of this encounter Visit Diagnoses Not on filedocumented in this encounter Care Teams Bus Aide Relationship Specialty Start Date End Date Beni Nguyen MD [address] [facility] 110 [place] [address] PCP - General Internal Medicine 01/02/23 Beni Nguyen MD [address] [facility] 110 [place] [address] PCP - ACO Reach 01/12/23 Esther Connolly, HEATHER [address] [place] [address] [facility] 09/27/24 11/08/24 Anastasia Rayo LPN 112 [place] [address] 11/08/24 documented as of this encounter
--- OUTSIDE RECORDS SUMMARY | 2025-02-24 12:53 | XMS_ITS | Encounter Summary ---
Author Organization [facility] Address [address] [place] [address] Care Team Providers Care Beehive Kiln Supervisor Name Role Phone Beni Nguyen MD Primary Care Provider [phone] Beni Nguyen MD Unavailable [phone] Esther Connolly RN Unavailable Anastasia Rayo LPN Unavailable Encounter Details Date Type Department Care Team (Late st Contact Info) Description 07/07/2023 Abstract [facility] [address] [facility] 110 [place] [address] Beni Nguyen MD 112 [facility] 110 [place], [place] [address] Social History Tobacco Use Types Packs/Day Years [...] and heating? Not hard at all 03/17/2023 [facility] of Occupat ional Health [...] CI PODIATRY 112 [facility] 120 [place] [address] Real Og, DPM 3006 [facility] 5 [place] [address] documented as of this encounter Visit Diagnoses Not on filedocumented in this encounter Care Teams Beehive Kiln Supervisor Relationship Specialty Start Date End Date Beni Nguyen MD [address] [facility] 110 [place] [address] PCP - General Internal Medicine 01/02/23 Beni Nguyen MD 112 [facility] 110 [place] [address] PCP - ACO Reach 01/12/23 Esther Connolly, HEATHER [address] [place] [address] Clinical [facility] 09/27/24 11/08/24 Anastasia Rayo LPN 112 [place] [address] 11/08/24 documented as of this encounter
--- OUTSIDE RECORDS SUMMARY | 2025-02-24 12:53 | XMS_ITS | Encounter Summary ---
Author Organization [facility] Address [address] [place] [address] Care Team Providers Care Retail Shift Supervisor Name Role Phone Beni Nguyen MD Primary Care Provider [phone] Beni Nguyen MD Unavailable [phone] Esther Connolly RN Unavailable [phone] Anastasia Rayo LPN Unavailable Encounter Details Date Type Department Care Team (Late st Contact Info) Description 09/01/2023 Abstract [facility] [address] [facility] 110 [place] [address] Beni Nguyen MD 112 [facility] 110 [place], [place] [address] Social History Tobacco Use Types Packs/Day Years [...] often do you attend chur ch or congregational services? Never 03/17/2023 Do you [...] and heating? Not hard at all 03/17/2023 [facility] of Occupat ional Health - [...] EDT Procedure Visit [facility] 112 [facility] 120 [place] [address] Real Og, DPM 3006 [facility] 5 [place] [address] documented as of this encounter Visit Diagnoses Not on filedocumented in this encounter Care Teams Retail Shift Supervisor Relationship Specialty Start Date End Date Beni Nguyen MD [address] [facility] 110 [place] [address] PCP - General Internal Medicine 01/02/23 Beni Nguyen MD [address] [facility] 110 [place] [address] PCP - ACO Reach 01/12/23 Esther Connolly, HEATHER [address] [place] [address] Clinical [facility] 09/27/24 11/08/24 Anastasia Rayo LPN 112 [place] [address] 11/08/24 documented as of this encounter
--- OUTSIDE RECORDS SUMMARY | 2025-02-24 12:53 | XMS_ITS | Encounter Summary ---
Author Organization [facility] Address [address] [place] [address] Care Team Providers Care Orthopaedic Technologist Name Role Phone Beni Nguyen MD Primary Care Provider [phone] Beni Nguyen MD Unavailable [phone] Esther Connolly RN Unavailable Anastasia Rayo LPN Unavailable Encounter Details Date Type Department Care Team (Late st Contact Info) Description 01/31/2024 Abstract [facility] [address] [facility] 110 [place] [address] Ben[address] MD [address] [facility] 110 [place], [place] [address] Social History Tobacco Use Types Packs/Day Years [...] Score 0 10/05/2023 [facility] Questionnaire Answer Date [...] [facility] [address] [facility] 120 [place] [address] Real Og DPM 3006 [facility] 5 [place] [address] documented as of this encounter Visit Diagnoses Not on filedocumented in this encounter Care Teams Orthopaedic Technologist Relationship Specialty Start Date End Date Beni Nguyen MD [address] [facility] 110 [place] [address] PCP - General Internal Medicine 01/02/23 Beni Nguyen MD [address] [facility] 110 [place] [address] PCP - ACO Reach 01/12/23 Esther Connolly, RN [address] [place] [address] Clinical [facility] Family [facility] 09/27/24 11/08/24 Anastasia Rayo LPN 112 [facility] 110 [place] [address] 11/08/24 documented as of this encounter
--- OUTSIDE RECORDS SUMMARY | 2025-02-24 12:53 | XMS_ITS | Encounter Summary ---
Author Organization [facility] Address [address] [place] [address] Care Team Providers Care Unit Controller Name Role Phone Beni Nguyen MD Primary Care Provider [phone] Beni Nguyen MD Unavailable [phone] Esther Connolly RN Unavailable Anastasia Rayo LPN Unavailable Encounter Details Date Type Department Care Team (Late st Contact Info) Description 05/23/2023 Abstract [facility] [address] [facility] 110 [place] [address] Beni Nguyen MD 112 [facility] 110 [place], [place] [address] Social History Tobacco Use Types Packs/Day Years [...] often do you attend chur ch or episcopal services? Never 03/17/2023 Do you [...] PODIATRY 112 [facility] 120 [place] [address] Real Og, DPM 3006 [facility] 5 [place] [address] documented as of this encounter Visit Diagnoses Not on filedocumented in this encounter Care Teams Unit Controller Relationship Specialty Start Date End Date Beni Nguyen MD [address] [facility] 110 [place] [address] PCP - General Internal Medicine 01/02/23 Beni Nguyen MD [address] [facility] 110 [place] [address] PCP - ACO Reach 01/12/23 Esther Connolly, HEATHER [address] [place] [address] Clinical Advocate Family Medicine 09/27/24 11/08/24 Anastasia Rayo LPN 112 [place] [address] 11/08/24 documented as of this encounter
--- OUTSIDE RECORDS SUMMARY | 2025-02-24 12:53 | XMS_ITS | Encounter Summary ---
Author Organization [facility] Address [address] [place] [address] Care Team Providers Care Court Officer Name Role Phone Beni Nguyen MD Primary Care Provider [phone] Beni Nguyen MD Unavailable [phone] Esther Connolly RN Unavailable Anastasia Rayo LPN Unavailable Encounter Details Date Type Department Care Team (Late st Contact Info) Description 06/24/2024 Abstract [facility] 112 [facility] 110 [place] [address] Beni Nguyen MD 112 [facility] 110 [place], [place] [address] Social History Tobacco Use Types Packs/Day Years [...] Encounters Date Type Department Care Team ([facility] Contact Info) Description 04/10/2025 3:10 PM EDT Procedure Visit [facility] 112 [facility] 120 [place] [address] Real Og DPM 3006 [facility] 5 [place] [address] documented as of this encounter Visit Diagnoses Not on filedocumented in this encounter Care Teams Court Officer Relationship Specialty Start Date End Date Beni Nguyen MD [address] [facility] 110 [place] [address] PCP - General Internal Medicine 01/02/23 Beni Nguyen MD [address] [facility] 110 [place] [address] PCP - ACO Reach 01/12/23 Esther Connolly, RN [address] [place] [address] Clinical Advocate Family Medicine 09/27/24 11/08/24 Anastasia Rayo LPN 112 [facility] 110 [place] [address] 11/08/24 documented as of this encounter
--- OUTSIDE RECORDS SUMMARY | 2025-02-24 12:53 | XMS_ITS ---
Author Organization [facility] Address [address] [place] [address] Care Team Providers Care Study Hall Supervisor Name Role Phone Beni Nguyen MD Primary Care Provider [phone] Beni Nguyen MD Unavailable [phone] Anastasia Rayo LPN Unavailable Chronic Care Management (CCM) Status:Enrolled (Active) Start date:01/05/2023 Enrollment date:01/05/2023 Overview 06/21/23, 9:37 AM - Salma Monday, ALETHA- Patient gives verbal consent to be enrolled in CCM Program and understands there could be a bill for this service. Case Team Name Relationship Phone Anastasia Rayo LPN(Responsible Staff) [phone] Continued Care and Services Coordination
--- OUTSIDE RECORDS SUMMARY | 2025-02-24 12:53 | XMS_ITS | Encounter Summary ---
Author Organization [facility] Address [address] [place] [address] Care Team Providers Care Platform Beater Name Role Phone Beni Nguyen MD Primary Care Provider [phone] Beni Nguyen MD Unavailable [phone] Esther Connolly RN Unavailable [phone] Anastasia Rayo LPN Unavailable Encounter Details Date Type Department Care Team (Late st Contact Info) Description 07/26/2023 Abstract [facility] [address] [facility] 110 [place] [address] Beni Nguyen MD 112 [facility] 110 [place], [place] [address] Social History Tobacco Use Types Packs/Day Years [...] and heating? Not hard at all 03/17/2023 [facility] of Occupat ional Health [...] [facility] 120 [place] [address] Real Og, DPM 3006 [facility] 5 [place] [address] documented as of this encounter Visit Diagnoses Not on filedocumented in this encounter Care Teams Platform Beater Relationship Specialty Start Date End Date Beni Nguyen MD [address] [facility] 110 [place] [address] PCP - General Internal Medicine 01/02/23 Beni Nguyen MD [address] [place] [facility] 110 [place] [address] PCP - ACO Reach 01/12/23 Esther Connolly, HEATHER [address] [place] [address] Clinical Advocate Family [facility] 09/27/24 11/08/24 Anastasia Rayo LPN 112 [place] [address] 11/08/24 documented as of this encounter
--- OUTSIDE RECORDS SUMMARY | 2025-02-24 12:53 | XMS_ITS | Encounter Summary ---
Author Organization [facility] Address [address] [place] [address] Care Team Providers Care Mate Ship Name Role Phone Beni Nguyen MD Primary Care Provider [phone] Beni Nguyen MD Unavailable [phone] Esther Connolly RN Unavailable [phone] Anastasia Rayo LPN Unavailable Encounter Details [...] often do you attend chur ch or yarsanism services? Never 03/17/2023 Do you belong to any clubs o r organizations such as buddhist groups, unions, fraternal or athletic groups, or [...] CI PODIATRY 112 [facility] 120 [place] [address] Real Og DPM 3006 [facility] 5 [place] [address] documented as of this encounter Procedures Procedure Name Priority Date/Time Associated Diagnosis Comments XR SACRUM COCCYX 2+ VIEWS 12/22/2023 2:30 PM EDT documented in this encounter Results * XR sacrum coccyx 2+ views (12/22/2023 2:30 PM EDT) Anatomical Region Laterality Modality Sacrum, Coccyx Radiographic Michelle ging 12/22/2023 2:30 PM EDT Narrative 12/22/2023 2:32 PM EDT The [address] [address] XRay Report Signed Patient: ANKUR REILLY MR#: [id number] : 1945 Acct:[id number] Age/Sex: 78 / M ADM Date: 12/22/23 Loc: RAD Attending Dr: Jadyn Wyman M.D. Ordering Physician: Jadyn Wyman M.D. Date of Service: 12/22/23 Procedure(s): XR sacrum coccyx min 2V Accession Number(s): [id number] cc: BENI NGUYEN ; Jadyn Wyman M.D. The [place] [id number] Patient Name: ANKUR REILLY MRN: [id number] date: 1945 Sex: M Assigned Patient Location: RAD Current Patient Location: RAD Accession/Order Number: [id number] Exam Date: 12/22/2023 13:20 Report Date: 12/22/2023 [...] Signed By: 12/22/23 1432 DD/ 1430 TD/TT: Picture Enlarger: Procedure Note Radiology, Radiologist, MD - 12/22/2023 [place] [address] XRay Report Signed Patient: ANKUR REILLY [facility]#: [id number] : 1945cct:[id number] Age/Sex: 78 / MADM Date: 12/22/23 Loc: RAD Attending Dr: Jadyn Wyman M.D. Ordering Physician: Jadyn Wyman M.D. Date of Service: 12/22/23 Procedure(s): XR sacrum coccyx min 2V Accession Number(s): [id number] cc: BENI NGUYEN ; Jadyn Wyman M.D. [address] [address] Patient Name: ANKUR REILLY MRN: [id number] date: 1945 Sex: M Assigned Patient Location: RAD Current Patient Location: RAD Accession/Order Number: [id number] Exam Date: 12/22/2023 13:20 Report Date: 12/22/2023 [...] M.D. Signed By:12/22/23 1432 DD/ 1430 TD/TT: Picture Enlarger: Generic External Data Provider IMG XR PROCEDURES Final Result documented in this encounter Visit Diagnoses Not on filedocumented in this encounter Care Teams Mate Ship Relationship Specialty Start Date End Date Beni Nguyen MD [address] [facility] 110 [place] [address] PCP - General Internal Medicine 01/02/23 Beni Nguyen MD [address] [facility] 110 [place] [address] PCP - ACO Reach 01/12/23 Esther Connolly, RN [address] [place] [address] Clinical Advocate Family Medicine 09/27/24 11/08/24 Anastasia Rayo LPN [address] [address] 11/08/24 documented as of this encounter
--- OUTSIDE RECORDS SUMMARY | 2025-02-24 12:53 | XMS_ITS | Encounter Summary ---
Author Organization [facility] Address [address] [facility] [facility] [place] [address] Care Team Providers Care Switch Inspector Name Role Phone Beni Nguyen MD Primary Care Provider Beni Nguyen MD Unavailable [phone] Esther Connolly RN Unavailable Anastasia Rayo LPN Unavailable Encounter Details Date Type Department Care Team (Late st Contact Info) Description 06/24/2024 Abstract [facility] [address] [facility] 110 [place] [address] Beni Nguyen MD 112 [facility] 110 [place], [place] [address] Social History Tobacco Use Types Packs/Day Years [...] Procedure Visit [facility] [address] [facility] 120 [place] [address] Real Og DPM 3006 [facility] 5 [place] [address] documented as of this encounter Visit Diagnoses Not on filedocumented in this encounter Care Teams Switch Inspector Relationship Specialty Start Date End Date Beni Nguyen MD [address] [facility] 110 [place] [address] PCP - General Internal Medicine 01/02/23 Beni Nguyen MD [address] [facility] 110 [place] [address] PCP - ACO Reach 01/12/23 Esther Connolly, RN [address] [place] [address] Clinical Advocate Family Medicine 09/27/24 11/08/24 Anastasia Rayo LPN [address] [facility] 110 [place] [address] 11/08/24 documented as of this encounter
--- OUTSIDE RECORDS SUMMARY | 2025-02-24 12:53 | XMS_ITS | Encounter Summary ---
Author Organization [facility] Address [address] [place] [address] Care Team Providers Care Product Architect Name Role Phone Beni Nguyen MD Primary Care Provider [phone] Beni Nguyen MD Unavailable [phone] Esther Connolly RN Unavailable Anastasia Rayo LPN Unavailable Encounter Details Date Type Department Care Team (Late st Contact Info) Description 07/04/2023 Abstract [facility] [address] [facility] 110 [place] [address] Beni Nguyen MD 112 [facility] 110 [place], [place] [address] Social History Tobacco Use Types Packs/Day Years [...] and heating? Not hard at all 03/17/2023 [facility] of Occupat [...] CI PODIATRY 112 [facility] 120 [place] [address] Real Og, DPM 3006 [facility] 5 [place] [address] documented as of this encounter Visit Diagnoses Not on filedocumented in this encounter Care Teams Product Architect Relationship Specialty Start Date End Date Beni Nguyen MD [address] [facility] 110 [place] [address] PCP - General Internal Medicine 01/02/23 Beni Nguyen MD [address] [facility] 110 [place] [address] PCP - ACO Reach 01/12/23 Esther Connolly, HEATHER [address] [place] [address] Clinical [facility] 09/27/24 11/08/24 Anastasia Rayo LPN 112 [place] [address] 11/08/24 documented as of this encounter
--- OUTSIDE RECORDS SUMMARY | 2025-02-24 12:53 | XMS_ITS | Encounter Summary ---
Author Organization [facility] Address [address] [place] [address] Care Team Providers Care Surgical Services Director Name Role Phone Beni Nguyen MD Primary Care Provider [phone] Beni Nguyen MD Unavailable [phone] Esther Connolly RN Unavailable [phone] Anastasia Rayo LPN Unavailable Encounter Details [...] Upcoming Encounters Date Type Department Care Team ([facility] st Contact Info) Description 04/10/2025 3:10 PM EDT Procedure Visit [facility] 112 [facility] 120 [place] [address] Real Og DPM 3006 [facility] 5 [place] [address] documented as of this encounter Procedures Procedure Name Priority Date/Time Associated Diagnosis Comments MR KNEE LT WO CON 03/07/2024 4:3 0 AM EDT documented in this encounter Results * MR KNEE LT WO CON (03/07/2024 4:30 AM EDT) Anatomical Region Laterality Modality Other 03/07/2024 4:30 AM EDT Narrative 03/07/2024 4:33 AM EDT The [address] [address] Magnetic Resonance Report Signed Patient: ANKUR REILLY MR#: [id number] : 1945 Acct:[id number] Age/Sex: 78 / M ADM Date: 03/06/24 Loc: MRI Attending Dr: Priya Gao M.D. Ordering Physician: Priya Gao M.D. Date of Service: 03/06/24 Procedure(s): MR knee LT wo con Accession Number(s): [id number] cc: BENI NGUYEN ; Priya Gao M.D. [place] [id number] Patient Name: ANKUR REILLY MRN: [id number] date: 1945 Sex: M Assigned Patient Location: MRI Current Patient Location: Accession/Order Number: [id number] Exam Date: 03/06/2024 07:00 Report Date: 03/07/2024 [...] M.D. Signed By: 03/07/24432 DD/ 9 TD/TT: Thermal Cutting Tracer Machine Operator: Procedure Note Radiology, Radiologist, MD - 03/07/2024 [place] [address] Magnetic Resonance Report Signed Patient: ANKUR REILLY AMR#: [id number] : 1945cct:[id number] Age/Sex: 78 / MADM Date: 03/06/24 Loc: MRI Attending Dr: Priya Gao M.D. Ordering Physician: Priya Gao M.D. Date of Service: 03/06/24 Procedure(s): MR knee LT wo con Accession Number(s): [id number] cc: BENI NGUYEN ; Priya Gao M.D. The [place] [address] Patient Name: ANKUR REILLY MRN: [id number] date: 1945 Sex: M Assigned Patient Location: MRI Current Patient Location: Accession/Order Number: [id number] Exam Date: 03/06/2024 07:00 Report Date: 03/07/2024 04:30 At the request of: PRIYA GAO Procedure: MR knee LT wo con EXAMINATION: MR knee LT wo con HISTORY: left knee pain COMPARISON: No relevant comparison available. TECHNIQUE: A complete multi-planar MRI was performed. FINDINGS: MEDIAL COMPARTMENT MEDIAL MENISCUS: Mostly extruded from the joint space with increased [id number] throughout suggestive of intrasubstance degeneration. No convincing [...] Perez M.D. Signed By:03/07/243 DD/ 9 TD/TT: Thermal Cutting Tracer Machine Operator: Generic External Data Provider [facility] Final Result documented in this encounter Visit Diagnoses Not on filedocumented in this encounter Care Teams Surgical Services Director Relationship Specialty Start Date End Date Beni Nguyen MD [address] [facility] 110 [place] [address] PCP - General Internal Medicine 01/02/23 Beni Nguyen MD [address] [facility] 110 [place] [address] PCP - ACO Reach 01/12/23 Esther Connolly, HEATHER [address] [place] [address] Clinical [facility] 09/27/24 11/08/24 Anastasia Rayo LPN [address] [address] 11/08/24 documented as of this encounter
--- OUTSIDE RECORDS SUMMARY | 2025-02-24 12:53 | XMS_ITS | Encounter Summary ---
Author Organization [facility] Address [address] [place] [address] Care Team Providers Care Stone Rigger Name Role Phone Beni Nguyen MD Primary Care Provider [phone] Beni Nguyen MD Unavailable [phone] Esther Connolly RN Unavailable Anastasia Rayo LPN Unavailable Encounter Details Date Type Department Care Team (Late st Contact Info) Description 06/27/2023 Abstract [facility] FM 112 [address] [facility] 110 [place] [address] Beni Nguyen MD 112 [facility] 110 [place], [place] [address] Social History Tobacco Use Types Packs/Day Years [...] any clubs o r organizations such as hinduism groups, unions, fraternal or athletic groups, or [...] and heating? Not hard at all 03/17/2023 [facility] - [...] PODIATRY 112 [facility] 120 [place] [address] Real Og, DPM 3006 [facility] 5 [place] [address] documented as of this encounter Visit Diagnoses Not on filedocumented in this encounter Care Teams Stone Rigger Relationship Specialty Start Date End Date Beni Nguyen MD [address] [facility] 110 [place] [address] PCP - General Internal Medicine 01/02/23 Beni Nguyen MD 112 [address] [facility] 110 [place] [address] PCP - ACO Reach 01/12/23 Esther Connolly, HEATHER [address] [place] [address] Clinical Advocate Family Medicine 09/27/24 11/08/24 Anastasia Rayo LPN 112 [place] [address] 11/08/24 documented as of this encounter
--- OUTSIDE RECORDS SUMMARY | 2025-02-24 12:53 | XMS_ITS | Encounter Summary ---
Author Organization [facility] Address [address] [place] [address] Care Team Providers Care Reflesher Name Role Phone Beni Nguyen MD Primary Care Provider [phone] Beni Nguyen MD Unavailable [phone] Esther Connolly RN Unavailable Anastasia Rayo LPN Unavailable Encounter Details Date Type Department Care Team (Late st Contact Info) Description 05/23/2023 Abstract [facility] 112 [address] [facility] 110 [place] [address] Beni Nguyen MD 112 [facility] 110 [place], [place] [phone] Social History Tobacco Use Types Packs/Day Years [...] CI PODIATRY 112 [facility] 120 [place] [address] Real Og, DPM 3006 [facility] 5 [place] [address] documented as of this encounter Visit Diagnoses Not on filedocumented in this encounter Care Teams Reflesher Relationship Specialty Start Date End Date Beni Nguyen MD [address] [facility] 110 [place] [address] PCP - General Internal Medicine 01/02/23 Beni Nguyen MD [address] [facility] 110 [place] [address] PCP - ACO Reach 01/12/23 Esther Connolly, HEATHER [address] [place] [address] Clinical Advocate Family Medicine 09/27/24 11/08/24 Anastasia Rayo LPN 112 [place] [address] 11/08/24 documented as of this encounter
--- OUTSIDE RECORDS SUMMARY | 2025-02-24 12:53 | XMS_ITS | Encounter Summary ---
Author Organization [facility] Address [address] [place] [address] Care Team Providers Care Dimethylaniline Sulfator Operator Name Role Phone Beni Nguyen MD Primary Care Provider [phone] Beni Nguyen MD Unavailable [phone] Esther Connolly RN Unavailable [phone] Anastasia Rayo LPN Unavailable Encounter Details Date Type Department Care Team (Late st Contact Info) Description 05/11/2023 Orders Only [facility] [address] [facility] 110 [place] [address] A, Unknown Practice [address] [place] [id number] Social History Tobacco Use Types Packs/Day Years [...] ([facility] st Contact Info) Description 04/10/2025 3:10 PM EDT Procedure Visit [facility] [address] [facility] 120 [place] [address] Real Og DPM 3006 [facility] 5 [place] [address] documented as of this encounter Procedures Procedure [...] on filedocumented in this encounter Care Teams Dimethylaniline Sulfator Operator Relationship Specialty Start Date End Date Beni Nguyen MD 112 [facility] 110 [place], [place] [address] PCP - General Internal Medicine 01/02/23 Beni Nguyen MD [address] [facility] 110 [place] [address] PCP - ACO Reach 01/12/23 Esther Connolly, RN [address] [place], [place] [address] Clinical Advocate Family Medicine 09/27/24 11/08/24 Anastasia Rayo LPN [address] [facility] 110 [place] [address] 11/08/24 documented as of this encounter
--- OUTSIDE RECORDS SUMMARY | 2025-02-24 12:53 | XMS_ITS | Encounter Summary ---
Author Organization [facility] Address [address] [place] [address] Care Team Providers Care Child Care Attendant School Name Role Phone Beni Nguyen MD Primary Care Provider [phone] Beni Nguyen MD Unavailable [phone] Esther Connolly RN Unavailable [phone] Anastasia Rayo LPN Unavailable Encounter Details Date Type Department Care Team (Late st Contact Info) Description 06/12/2023 Abstract [facility] 112 [facility] 110 [place] [address] Beni Nguyen MD 112 [facility] 110 [place], [place] [phone] Social History Tobacco Use Types Packs/Day Years [...] often do you attend chur ch or jewish services? Never 03/17/2023 Do you belong to [...] and heating? Not hard at all 03/17/2023 [facility] - [...] PODIATRY 112 [facility] 120 [place] [address] Real gO, DPM 3006 [facility] 5 [place] [address] documented as of this encounter Visit Diagnoses Not on filedocumented in this encounter Care Teams Child Care Attendant School Relationship Specialty Start Date End Date Beni Nguyen MD [address] [facility] 110 [place] [address] PCP - General Internal Medicine 01/02/23 Beni Nguyen MD [address] [facility] 110 [place] [address] PCP - ACO Reach 01/12/23 Esther Connolly, HEATHER [address] [place] [address] Clinical Advocate Family Medicine 09/27/24 11/08/24 Anastasia Rayo LPN 112 [place] [address] 11/08/24 documented as of this encounter
--- OUTSIDE RECORDS SUMMARY | 2025-02-24 12:53 | XMS_ITS | Encounter Summary ---
Author Organization [facility] Address [address] [place] [address] Care Team Providers Care String Cutter Name Role Phone Beni Nguyen MD Primary Care Provider [phone] Beni Nguyen MD Unavailable [phone] Esther Connolly RN Unavailable Anastasia Rayo LPN Unavailable Encounter Details Date Type Department Care Team (Late st Contact Info) Description 06/20/2023 Abstract [facility] 112 [address] [facility] 110 [place] [address] Beni Nguyen MD 112 [facility] 110 [place], [place] [address] Social History Tobacco Use Types Packs/Day Years [...] often do you attend chur ch or islam services? Never 03/17/2023 Do you [...] and heating? Not hard at all 03/17/2023 [facility] Occupat ional Health [...] [facility] PODIATRY 112 [facility] 120 [place] [address] Real Og, DPM 3006 [facility] 5 [place] [address] documented as of this encounter Visit Diagnoses Not on filedocumented in this encounter Care Teams String Cutter Relationship Specialty Start Date End Date Beni Nguyen MD [address] [facility] 110 [place] [address] PCP - General Internal Medicine 01/02/23 Beni Nguyen MD [address] [facility] 110 [place] [address] PCP - ACO Reach 01/12/23 Esther Connolly, HEATHER [address] [place] [address] Clinical Advocate Family Medicine 09/27/24 11/08/24 Anastasia Rayo LPN 112 [place] [address] 11/08/24 documented as of this encounter
--- OUTSIDE RECORDS SUMMARY | 2025-02-24 12:53 | XMS_ITS | Encounter Summary ---
Author Organization [facility] Address [address] [place] [address] Care Team Providers Care Turpentine Farmer Name Role Phone Beni Nguyen MD Primary Care Provider [phone] Beni Nguyen MD Unavailable [phone] Esther Connolly RN Unavailable [phone] Anastasia Rayo LPN Unavailable Encounter Details Date Type Department Care Team (Late st Contact Info) Description 06/20/2024 Abstract [facility] 112 [facility] 110 [place] [address] Beni Nguyen MD 112 [facility] 110 [place], [place] [address] Social History Tobacco Use Types Packs/Day Years [...] Recorded Patient Health Questionnaire-2 Score 0 10/05/2023 [facility] Occupat ional Health - [...] Procedure Visit [facility] POD[facility] 112 [facility] [facility] 120 [place] [address] Real Og DPM 3006 [facility] 5 [place] [address] documented as of this encounter Visit Diagnoses Not on filedocumented in this encounter Care Teams Turpentine Farmer Relationship Specialty Start Date End Date Beni Nguyen MD [address] [facility] 110 [place] [address] PCP - General Internal Medicine 01/02/23 Beni Nguyen MD [address] [facility] 110 [place] [address] PCP - ACO Reach 01/12/23 Esther Connolly, RN [address] [place] [address] Clinical Advocate Family Medicine 09/27/24 11/08/24 Anastasia Rayo LPN [address] [facility] 110 [place] [address] 11/08/24 documented as of this encounter
--- OUTSIDE RECORDS SUMMARY | 2025-02-24 12:53 | XMS_ITS | Encounter Summary ---
Author Organization [facility] Address [address] [place] [address] Care Team Providers Care Slab Worker Name Role Phone Beni Nguyen MD Primary Care Provider [phone] Beni Nguyen MD Unavailable [phone] Esther Connolly RN Unavailable [phone] Anastasia Rayo LPN Unavailable Encounter Details Date Type Department Care Team (Late st Contact Info) Description 07/18/2023 Abstract [facility] 112 [address] [facility] 110 [place] [address] Beni Nguyen MD 112 [facility] 110 [place], [place] [address] Social History Tobacco Use Types Packs/Day Years [...] CI PODIATRY 112 [facility] 120 [place] [address] Real Og, DPM 3006 [facility] 5 [place] [address] documented as of this encounter Visit Diagnoses Not on filedocumented in this encounter Care Teams Slab Worker Relationship Specialty Start Date End Date Beni Nguyen MD [address] [facility] 110 [place] [address] PCP - General Internal Medicine 01/02/23 Beni Nguyen MD [address] [facility] 110 [place] [address] PCP - ACO Reach 01/12/23 Esther Connolly, HEATHER [address] [place] [address] Clinical Advocate Family Medicine 09/27/24 11/08/24 Anastasia Rayo LPN 112 [place] [address] 11/08/24 documented as of this encounter
--- OUTSIDE RECORDS SUMMARY | 2025-02-24 12:53 | XMS_ITS | Encounter Summary ---
Author Organization [facility] Address [address] [place] [address] Care Team Providers Care Consulting Practice Director Name Role Phone Beni Nguyen MD Primary Care Provider [phone] Beni Nguyen MD Unavailable [phone] Esther Connolly RN Unavailable Anastasia Rayo LPN Unavailable Encounter Details Date Type Department Care Team (Late st Contact Info) Description 08/04/2023 Abstract [facility] [address] [facility] 110 [place] [address] Beni Nguyen MD 112 [facility] 110 [place], [place] [address] Social History Tobacco Use Types Packs/Day Years [...] any clubs o r organizations such as cheondoism groups, unions, fraternal or athletic groups, or [...] and heating? Not hard at all 03/17/2023 [facility] Occupat ional Health [...] PODIATRY 112 [facility] 120 [place] [address] Real Og, DPM 3006 [facility] 5 [place] [address] documented as of this encounter Visit Diagnoses Not on filedocumented in this encounter Care Teams Consulting Practice Director Relationship Specialty Start Date End Date Beni Nguyen MD [address] [facility] 110 [place] [address] PCP - General Internal Medicine 01/02/23 Beni Nguyen MD [address] [facility] 110 [place] [address] PCP - ACO Reach 01/12/23 Esther Connolly, HEATHER [address] [place] [address] Clinical Advocate Family Medicine 09/27/24 11/08/24 Anastasia Rayo LPN 112 [place] [address] 11/08/24 documented as of this encounter
--- OUTSIDE RECORDS SUMMARY | 2025-02-24 12:53 | XMS_ITS | Encounter Summary ---
Author Organization [facility] Address [address] [place] [address] Care Team Providers Care Weatherization Field Technician Name Role Phone Beni Nguyen MD Primary Care Provider [phone] Beni Nguyen MD Unavailable [phone] Esther Connolly RN Unavailable Anastasia Rayo LPN Unavailable Encounter Details Date Type Department Care Team (Late st Contact Info) Description 05/24/2023 Abstract [facility] FM [address] [facility] 110 [place] [address] Beni Nguyen MD 112 [facility] 110 [place], [place] [address] Social History Tobacco Use Types Packs/Day Years [...] CI PODIATRY 112 [facility] 120 [place] [address] Real Og, DPM 3006 [facility] 5 [place] [address] documented as of this encounter Visit Diagnoses Not on filedocumented in this encounter Care Teams Weatherization Field Technician Relationship Specialty Start Date End Date Beni Nguyen MD [address] [facility] 110 [place] [address] PCP - General Internal Medicine 01/02/23 Beni Nguyen MD [address] [facility] 110 [place] [address] PCP - ACO Reach 01/12/23 Esther Connolly, HEATHER [address] [place] [address] Clinical Advocate Family Medicine 09/27/24 11/08/24 Anastasia Rayo LPN 112 [place] [address] 11/08/24 documented as of this encounter
--- OUTSIDE RECORDS SUMMARY | 2025-02-24 12:53 | XMS_ITS | Encounter Summary ---
Author Organization [facility] Address [address] [place] [address] Care Team Providers Care Tile Layer Name Role Phone Beni Nguyen MD Primary Care Provider [phone] Beni Nguyen MD Unavailable [phone] Esther Connolly RN Unavailable [phone] Anastasia Rayo LPN Unavailable Encounter Details Date Type Department Care Team (Late st Contact Info) Description 06/20/2024 Abstract [facility] FM 112 [facility] 110 [place] [address] Beni Nguyen MD [address] [facility] 110 [place], [place] [address] Social History Tobacco Use Types Packs/Day Years [...] Encounters Date Type Department Care Team ([facility] Contact Info) Description 04/10/2025 3:10 PM EDT Procedure Visit [facility] PODIATRY 112 [address] [facility] 120 [place] [address] Real Og DPM 3006 [facility] 5 [place] [address] documented as of this encounter Visit Diagnoses Not on filedocumented in this encounter Care Teams Tile Layer Relationship Specialty Start Date End Date Beni Nguyen MD [address] [facility] 110 [place] [address] PCP - General Internal Medicine 01/02/23 Beni Nguyen MD [address] [facility] 110 [place] [address] PCP - ACO Reach 01/12/23 Esther Connolly, RN [address] [place] [address] Clinical Advocate Family Medicine 09/27/24 11/08/24 Anastasia Rayo LPN [address] [facility] 110 [place] [address] 11/08/24 documented as of this encounter
--- OUTSIDE RECORDS SUMMARY | 2025-02-24 12:53 | XMS_ITS | Encounter Summary ---
Author Organization [facility] Address [address] [place] [address] Care Team Providers Care Grocery Store Bagger Name Role Phone Beni Nguyen MD Primary Care Provider [phone] Beni Nguyen MD Unavailable [phone] Esther Connolly RN Unavailable [phone] Anastasia Rayo LPN Unavailable Encounter Details Date Type Department Care Team (Late st Contact Info) Description 05/11/2023 Abstract [facility] FM [address] [facility] 110 [place] [address] Beni Nguyen MD 112 [facility] 110 [place], [place] [address] Social History Tobacco Use Types Packs/Day Years [...] often do you attend chur ch or buddhism services? Never 03/17/2023 Do you [...] heating? Not hard at all 03/17/2023 [facility] Occupat ional Health - Occupational [...] [facility] PODIATRY 112 [facility] 120 [place] [address] Real Og, DPM 3006 [facility] 5 [place] [address] documented as of this encounter Visit Diagnoses Not on filedocumented in this encounter Care Teams Grocery Store Bagger Relationship Specialty Start Date End Date Beni Nguyen MD [address] [facility] 110 [place] [address] PCP - General Internal Medicine 01/02/23 Beni Nguyen MD [address] [facility] [facility] 110 [place] [address] PCP - ACO Reach 01/12/23 Esther Connolly, HEATHER [address] [place] [address] Clinical Advocate Family Medicine 09/27/24 11/08/24 Anastasia Rayo LPN 112 [place] [address] 11/08/24 documented as of this encounter
--- OUTSIDE RECORDS SUMMARY | 2025-02-24 12:53 | XMS_ITS | Encounter Summary ---
Author Organization [facility] Address [address] [place] [address] Care Team Providers Care Bag Turner Name Role Phone Beni Nguyen MD Primary Care Provider [phone] Beni Nguyen MD Unavailable [phone] Esther Connolly RN Unavailable Anastasia Rayo LPN Unavailable Encounter Details Date Type Department Care Team (Late st Contact Info) Description 05/17/2023 Abstract [facility] FM 112 [address] [facility] 110 [place] [address] Beni Nguyen MD 112 [facility] 110 [place], [place] [address] Social History Tobacco Use Types Packs/Day Years [...] and heating? Not hard at all 03/17/2023 [facility] of Occupat ional Health - Occupational [...] PODIATRY 112 [facility] 120 [place] [address] Real Og, DPM 3006 [facility] 5 [place] [address] documented as of this encounter Visit Diagnoses Not on filedocumented in this encounter Care Teams Bag Turner Relationship Specialty Start Date End Date Beni Nguyen MD [address] [facility] 110 [place] [address] PCP - General Internal Medicine 01/02/23 Beni Nguyen MD [address] [facility] 110 [place] [address] PCP - ACO Reach 01/12/23 Esther Connolly, HEATHER [address] [place] [address] [place] [address] Clinical Advocate Family Medicine 09/27/24 11/08/24 Anastasia Rayo LPN 112 [place] [address] 11/08/24 documented as of this encounter
--- OUTSIDE RECORDS SUMMARY | 2025-02-24 12:53 | XMS_ITS | Encounter Summary ---
Author Organization [facility] Address [address] [place] [address] Care Team Providers Care Loan Manager Name Role Phone Beni Nguyen MD Primary Care Provider [phone] Beni Nguyen MD Unavailable [phone] Esther Connolly RN Unavailable Anastasia Rayo LPN Unavailable Encounter Details Date Type Department Care Team (Late st Contact Info) Description 06/25/2024 Abstract [facility] [address] [facility] 110 [place] [address] Beni Nguyen MD 112 [facility] 110 [place], [place] [address] Social History Tobacco Use Types Packs/Day Years [...] any clubs o r organizations such as oriental orthodox groups, unions, fraternal or athletic groups, [...] Recorded Patient Health Questionnaire-2 Score 0 10/05/2023 [facility] of Occupat ional Health [...] Upcoming Encounters Date Type Department Care Team ([facility] Contact Info) Description 04/10/2025 3:10 PM EDT Procedure Visit [facility] PODIATRY 112 [facility] [facility] 120 [place] [address] Real Og DPM 3006 [facility] 5 [place] [address] documented as of this encounter Visit Diagnoses Not on filedocumented in this encounter Care Teams Loan Manager Relationship Specialty Start Date End Date Beni Nguyen MD [address] [facility] 110 [place] [address] PCP - General Internal Medicine 01/02/23 Beni Nguyen MD [address] [facility] 110 [place] [address] PCP - ACO Reach 01/12/23 Esther Connolly, RN [address] [place] [address] Clinical [facility] 09/27/24 11/08/24 Anastasia Rayo LPN [address] [facility] 110 [place] [address] 11/08/24 documented as of this encounter
--- OUTSIDE RECORDS SUMMARY | 2025-02-24 12:53 | XMS_ITS | Encounter Summary ---
Author Organization [facility] Address [address] [place] [address] Care Team Providers Care Machine Pecan Picker Name Role Phone Beni Nguyen MD Primary Care Provider [phone] Beni Nguyen MD Unavailable [phone] Esther Connolly RN Unavailable [phone] Anastasia Rayo LPN Unavailable Encounter Details Date Type Department Care Team (Late st Contact Info) Description 05/11/2023 Abstract [facility] 112 [facility] 110 [place] [address] Beni Nguyen MD 112 [facility] 110 [place], [place] [address] Social History Tobacco Use Types Packs/Day Years [...] often do you attend chur ch or episcopalian services? Never 03/17/2023 Do you belong to [...] and heating? Not hard at all 03/17/2023 [facility] of Occupat ional Health [...] [facility] 120 [place] [address] Real Og, DPM 3006 [facility] 5 [place] [address] documented as of this encounter Visit Diagnoses Not on filedocumented in this encounter Care Teams Machine Pecan Picker Relationship Specialty Start Date End Date Beni Nguyen MD [address] [facility] 110 [place] [address] PCP - General Internal Medicine 01/02/23 Beni Nguyen MD [address] [facility] 110 [place] [address] PCP - ACO Reach 01/12/23 Esther Connolly, HEATHER [address] [place] [address] Clinical [facility] Family Medicine 09/27/24 11/08/24 Anastasia Rayo LPN 112 [place] [address] 11/08/24 documented as of this encounter
--- OUTSIDE RECORDS SUMMARY | 2025-02-24 12:53 | XMS_ITS | Encounter Summary ---
Author Organization [facility] Address [address] [place] [address] Care Team Providers Care Rubber Boots And Shoes Repairer Name Role Phone Beni Nguyen MD Primary Care Provider [phone] Beni Nguyen MD Unavailable [phone] Esther Connolly RN Unavailable Anastasia Rayo LPN Unavailable Encounter Details Date Type Department Care Team (Late st Contact Info) Description 05/23/2023 Abstract [facility] FM 112 [facility] [facility] 110 [place] [address] Beni Nguyen MD 112 [facility] 110 [place], [place] [address] Social History Tobacco Use Types Packs/Day Years [...] [facility] POD[facility]ATRY 112 [facility] 120 [place] [address] Real Og, DPM 3006 [facility] 5 [place] [address] documented as of this encounter Visit Diagnoses Not on filedocumented in this encounter Care Teams Rubber Boots And Shoes Repairer Relationship Specialty Start Date End Date Beni Nguyen MD [address] [facility] 110 [place] [address] PCP - General Internal Medicine 01/02/23 Beni Nguyen MD [address] [facility] 110 [place] [address] PCP - ACO Reach 01/12/23 Esther Connolly, HEATHER [address] [place] [address] Clinical Advocate Family Medicine 09/27/24 11/08/24 Anastasia aRyo LPN 112 [place] [address] 11/08/24 documented as of this encounter
--- OUTSIDE RECORDS SUMMARY | 2025-02-24 12:53 | XMS_ITS | Encounter Summary ---
Author Organization [facility] Address [address] [place] [address] Care Team Providers Care Aviation Electrical Technician Name Role Phone Beni Nguyen MD Primary Care Provider [phone] Beni Nguyen MD Unavailable [phone] Esther Connolly RN Unavailable [phone] Anastasia Rayo LPN Unavailable Encounter Details [...] Upcoming Encounters Date Type Department Care Team ([facility] st Contact Info) Description 04/10/2025 3:10 PM EDT Procedure Visit [facility] 112 [facility] 120 [place] [address] Real Og DPM 3006 [facility] 5 [place] [address] documented as of this encounter Procedures Procedure Name Priority Date/Time Associated Diagnosis Comments MR LUMBAR SPINE WO CON 12/22/2023 2:22 PM EDT documented in this encounter Results * MR LUMBAR SPINE WO CON (12/22/2023 2:22 PM EDT) Anatomical Region Laterality Modality Other 12/22/2023 2:22 PM EDT Narrative 12/22/2023 2:25 PM EDT The [address] [address] Magnetic Resonance Report Signed Patient: ANKUR REILLY MR#: [id number] : 1945 Acct:[id number] Age/Sex: 78 / M ADM Date: 12/22/23 Loc: RAD Attending Dr: Jadyn Wyman M.D. Ordering Physician: Jadyn Wyman M.D. Date of Service: 12/22/23 Procedure(s): MR lumbar spine wo con Accession Number(s): [id number] cc: BENI NGUYEN ; Jadyn Wyman M.D. [place] [address] Patient Name: ANKUR REILLY MRN: [facility]:[id number] date: 1945 Sex: M Assigned Patient Location: RAD Current Patient Location: RAD Accession/Order Number: [id number] Exam Date: 12/22/2023 12:40 Report Date: 12/22/2023 [...] Signed By: 12/22/23 1425 DD/ 142 TD/TT: Cooling Pan Tender: Procedure Note Radiology, Radiologist, MD - 12/22/2023 [place] [address] Magnetic Resonance Report Signed Patient: ANKUR REILLY [facility]#: [id number] : 1945cct:[id number] Age/Sex: 78 / MADM Date: 12/22/23 Loc: RAD Attending Dr: Jadyn Wyman M.D. Ordering Physician: Jadyn Wyman M.D. Date of Service: 12/22/23 Procedure(s): MR lumbar spine wo con Accession Number(s): [id number] cc: BENI NGUYEN ; Jadyn Wyman M.D. The [place] [id number] Patient Name: ANKUR REILLY MRN: [id number] date: 1945 Sex: M Assigned Patient Location: RAD Current Patient Location: RAD Accession/Order Number: [id number] Exam Date: 12/22/2023 12:40 Report Date: 12/22/2023 [...] M.D. Signed By:12/22/23 1425 DD/ 142 TD/TT: Cooling Pan Tender: us Generic External Data Provider [facility] Final Result documented in this encounter Visit Diagnoses Not on filedocumented in this encounter Care Teams Aviation Electrical Technician Relationship Specialty Start Date End Date Beni Nguyen MD [address] [address] PCP - General Internal Medicine 01/02/23 Beni Nguyen MD [address] [address] PCP - ACO Reach 01/12/23 Esther Connolly, HEATHER [address] [place] [place] [address] Clinical Advocate Family Medicine 09/27/24 11/08/24 Anastasia Rayo LPN [address] [address] 11/08/24 documented as of this encounter
--- OUTSIDE RECORDS SUMMARY | 2025-02-24 12:53 | XMS_ITS | Encounter Summary ---
Author Organization [facility] Address [address] [place] [address] Care Team Providers Care Woodworking Shop Hand Name Role Phone Beni Nguyen MD Primary Care Provider [phone] Beni Nguyen MD Unavailable [phone] Esther Connolly RN Unavailable Anastasia Rayo LPN Unavailable Encounter Details Date Type Department Care Team (Late st Contact Info) Description 01/31/2024 Abstract [facility] 112 [facility] [facility] 110 [place] [address] Beni Nguyen MD 112 [facility] 110 [place], [place] [address] Social History Tobacco Use Types Packs/Day Years [...] Questionnaire-2 Score 0 10/05/2023 [facility] - [facility] [...] [facility] PODIATRY [address] [facility] 120 [place] [address] Real Og DPM 3006 [facility] 5 [place] [address] documented as of this encounter Visit Diagnoses Not on filedocumented in this encounter Care Teams Woodworking Shop Hand Relationship Specialty Start Date End Date Beni Nguyen MD [address] [facility] 110 [place] [address] PCP - General Internal Medicine 01/02/23 Beni Nguyen MD [address] [facility] 110 [place] [address] PCP - ACO Reach 01/12/23 Esther Connolly, RN [address] [place] [address] Clinical Advocate Family Medicine 09/27/24 11/08/24 Anastasia Rayo LPN 112 [facility] 110 [place] [address] 11/08/24 documented as of this encounter
--- OUTSIDE RECORDS SUMMARY | 2025-02-24 12:53 | XMS_ITS | Encounter Summary ---
Author Organization [facility] Address [address] [place] [address] Care Team Providers Care Nuclear Powerplant Mechanic Helper Name Role Phone Beni Nguyen MD Primary Care Provider [phone] Beni Nguyen MD Unavailable [phone] Esther Connolly RN Unavailable Anastasia Rayo LPN Unavailable Encounter Details Date Type Department Care Team (Late st Contact Info) Description 08/23/2023 Abstract [facility] FM 112 [address] [facility] 110 [place] [address] Beni Nguyen MD 112 [facility] 110 [place], [place] [address] Social History Tobacco Use Types Packs/Day Years [...] and heating? Not hard at all 03/17/2023 [facility] of Occupat ional [...] [facility] PODIATRY 112 [facility] 120 [place] [address] Real Og, DPM 3006 [facility] 5 [place] [address] documented as of this encounter Visit Diagnoses Not on filedocumented in this encounter Care Teams Nuclear Powerplant Mechanic Helper Relationship Specialty Start Date End Date Beni Nguyen MD [address] [facility] 110 [place] [address] PCP - General Internal Medicine 01/02/23 Beni Nguyen MD [address] [facility] 110 [place] [address] PCP - ACO Reach 01/12/23 Esther Connolly, HEATHER [address] [place] [address] Clinical [facility] Family Medicine 09/27/24 11/08/24 Anastasia Rayo LPN 112 [place] [address] 11/08/24 documented as of this encounter
--- OUTSIDE RECORDS SUMMARY | 2025-02-24 12:53 | XMS_ITS | Encounter Summary ---
Author Organization [facility] Address [address] [place] [place] [address] Care Team Providers Care Learning Manager Name Role Phone Beni Nguyen MD Primary Care Provider [phone] Beni Nguyen MD Unavailable [phone] Esther Connolly RN Unavailable Anastasia Rayo LPN Unavailable Encounter Details Date Type Department Care Team (Late st Contact Info) Description 06/24/2024 Abstract [facility] 112 [facility] 110 [place] [address] Beni Nguyen MD 112 [facility] 110 [place], [place] [address] Social History Tobacco Use Types Packs/Day Years [...] Patient Health Questionnaire-2 Score 0 10/05/2023 [facility] of Occupat ional [...] Upcoming Encounters Date Type Department Care Team ([facility] Contact Info) Description 04/10/2025 3:10 PM EDT Procedure Visit [facility] PODIATRY 112 [facility] [facility] 120 [place] [address] Real Og DPM 3[address] [facility] 5 [place] [address] documented as of this encounter Visit Diagnoses Not on filedocumented in this encounter Care Teams Learning Manager Relationship Specialty Start Date End Date Beni Nguyen MD [address] [facility] 110 [place] [address] PCP - General Internal Medicine 01/02/23 Beni Nguyen MD [address] [facility] 110 [place] [address] PCP - ACO Reach 01/12/23 Esther Connolly, RN [address] [place] [address] Clinical Advocate Family Medicine 09/27/24 11/08/24 Anastasia Rayo LPN [address] [facility] 110 [place] [address] 11/08/24 documented as of this encounter
--- OUTSIDE RECORDS SUMMARY | 2025-02-24 12:53 | XMS_ITS | Encounter Summary ---
Author Organization [facility] Address [address] [place] [address] Care Team Providers Care Ged Instructor Name Role Phone Beni Nguyen MD Primary Care Provider [phone] Beni Nguyen MD Unavailable [phone] Esther Connolly RN Unavailable Anastasia Rayo LPN Unavailable Encounter Details Date Type Department Care Team (Late st Contact Info) Description 06/29/2023 Abstract [facility] FM 112 [address] [facility] 110 [place] [address] Beni Nguyen MD 112 [facility] 110 [place], [place] [address] Social History Tobacco Use Types Packs/Day Years [...] heating? Not hard at all 03/17/2023 [facility] of Occupat ional Health - Occupational [...] CI PODIATRY 112 [facility] 120 [place] [address] Real Og, DPM 3006 [facility] 5 [place] [address] documented as of this encounter Visit Diagnoses Not on filedocumented in this encounter Care Teams Ged Instructor Relationship Specialty Start Date End Date Beni Nguyen MD [address] [facility] 110 [place] [address] PCP - General Internal Medicine 01/02/23 Beni Nguyen MD 112 [address] [facility] 110 [place] [address] PCP - ACO Reach 01/12/23 Esther Connolly, HEATHER [address] [place] [address] Clinical Advocate Family Medicine 09/27/24 11/08/24 Anastasia Rayo LPN 112 [place] [address] 11/08/24 documented as of this encounter
--- OUTSIDE RECORDS SUMMARY | 2025-02-24 12:53 | XMS_ITS | Encounter Summary ---
Author Organization [facility] Address [address] [place] [address] Care Team Providers Care Head Of Art Name Role Phone Beni Nguyen MD Primary Care Provider [phone] Beni Nguyen MD Unavailable [phone] Esther Connolly RN Unavailable Anastasia Rayo LPN Unavailable Encounter Details Date Type Department Care Team (Late st Contact Info) Description 02/13/2024 Abstract [facility] FM 112 [address] [facility] 110 [place] [address] Beni Nguyen MD 112 [facility] 110 [place], [place] [address] Social History Tobacco Use Types Packs/Day Years [...] Recorded Patient Health Questionnaire-2 Score 0 10/05/2023 [facility]ational Stress Questionnaire Answer Date [...] Visit [facility] PODIATRY [address] [facility] 120 [place] [address] Real Og DPM 3006 [facility] 5 [place] [address] documented as of this encounter Visit Diagnoses Not on filedocumented in this encounter Care Teams Head Of Art Relationship Specialty Start Date End Date Beni Nguyen MD [address] [facility] 110 [place] [address] PCP - General Internal Medicine 01/02/23 Beni Nguyen MD [address] [facility] 110 [place] [address] PCP - ACO Reach 01/12/23 Esther Connolly, RN [address] [place] [address] Clinical Advocate Family Medicine 09/27/24 11/08/24 Anastasia Rayo LPN 112 [facility] 110 [place] [address] 11/08/24 documented as of this encounter
--- OUTSIDE RECORDS SUMMARY | 2025-02-24 12:53 | XMS_ITS | Encounter Summary ---
Author Organization [facility] Address [address] [place] [address] Care Team Providers Care Fish Dressing Machine Feeder Name Role Phone Beni Nguyen MD Primary Care Provider [phone] Beni Nguyen MD Unavailable [phone] Esther Connolly RN Unavailable Anastasia Rayo LPN Unavailable Encounter Details Date Type Department Care Team (Late st Contact Info) Description 08/04/2023 Abstract [facility] FM 112 [address] [facility] 110 [place] [address] Beni Nguyen MD 112 [facility] 110 [place], [place] [address] Social History Tobacco Use Types Packs/Day Years [...] often do you attend chur ch or presybeterian services? Never 03/17/2023 Do you belong to [...] Not hard at all 03/17/2023 [facility] of Occupat ional Health - Occupational Stress [...] PODIATRY 112 [facility] 120 [place] [address] Real Og, DPM 3006 [facility] 5 [place] [address] documented as of this encounter Visit Diagnoses Not on filedocumented in this encounter Care Teams Fish Dressing Machine Feeder Relationship Specialty Start Date End Date Beni Nguyen MD [address] [facility] 110 [place] [address] PCP - General Internal Medicine 01/02/23 Beni Nguyen MD [address] [facility] 110 [place] [address] PCP - ACO Reach 01/12/23 Esther Connolly, HEATHER [address] [place] [address] Clinical Advocate Family Medicine 09/27/24 11/08/24 Anastasia Rayo LPN 112 [place] [address] 11/08/24 documented as of this encounter
--- OUTSIDE RECORDS SUMMARY | 2025-02-24 12:53 | XMS_ITS | Encounter Summary ---
Author Organization [facility] Address [address] [place] [address] Care Team Providers Care Ream Cutter Name Role Phone Beni Nguyen MD Primary Care Provider [phone] Beni Nguyen MD Unavailable [phone] Esther Connolly RN Unavailable Anastasia Rayo LPN Unavailable Encounter Details Date Type Department Care Team (Late st Contact Info) Description 05/23/2023 Abstract [facility] FM 112 [address] [facility] 110 [place] [address] Beni Nguyen MD 112 [facility] 110 [place], [place] [address] Social History Tobacco Use Types Packs/Day Years [...] and heating? Not hard at all 03/17/2023 [facility] of Occupat ional Health - Occupational [...] PODIATRY 112 [facility] 120 [place] [address] Real Og, DPM 3006 [facility] 5 [place] [address] documented as of this encounter Visit Diagnoses Not on filedocumented in this encounter Care Teams Ream Cutter Relationship Specialty Start Date End Date Beni Nguyen MD [address] [facility] 110 [place] [address] PCP - General Internal Medicine 01/02/23 Beni Nguyen MD 112 [address] [facility] 110 [place] [address] PCP - ACO Reach 01/12/23 Esther Connolly, HEATHER [address] [place] [address] Clinical [facility] 09/27/24 11/08/24 Anastasia Rayo LPN 112 [place] [address] 11/08/24 documented as of this encounter
--- OUTSIDE RECORDS SUMMARY | 2025-02-24 12:54 | XMS_ITS | Encounter Summary ---
Author Organization [facility] Address [address] [place] [address] Care Team Providers Care Customer Facilities Supervisor Name Role Phone Beni Nguyen MD Primary Care Provider [phone] Beni Nguyen MD Unavailable [phone] Anastasia Rayo LPN Unavailable Encounter Details Date Type Department Care Team (Late st Contact Info) Description 01/23/2025 Abstract [facility] FM 112 [address] [facility] 110 [place] [address] Beni Nguyen MD 112 [facility] 110 [place] [address] Social History Tobacco Use Types Packs/Day Years [...] any clubs o r organizations such as taoism groups, unions, fraternal or athletic groups, or [...] Type Department Care Team ([facility] Contact Info) Description 04/10/2025 3:10 PM EDT Procedure Visit [facility] PODIATRY [address] [facility] 120 [place] [address] Real Og DPM 3006 [facility] 5 [place] [address] documented as of this encounter Visit Diagnoses Not on filedocumented in this encounter Care Teams Customer Facilities Supervisor Relationship Specialty Start Date End Date Beni Nguyen MD [address] [facility] 110 [place] [address] PCP - General Internal Medicine 01/02/23 Beni Nguyen MD [address] [facility] 110 [place] [address] PCP - ACO Reach 01/12/23 Anastasia Rayo LPN 112 [facility] 110 [place] [address] 11/08/24 documented as of this encounter
--- OUTSIDE RECORDS SUMMARY | 2025-02-24 12:54 | XMS_ITS | Encounter Summary ---
Author Organization [facility] Address [address] [facility] [place] [address] Care Team Providers Care Medicaid Billing Specialist Name Role Phone Beni Nguyen MD Primary Care Provider [phone] Beni Nguyen MD Unavailable [phone] Esther Connolly RN Unavailable Anastasia Rayo LPN Unavailable Encounter Details Date Type Department Care Team (Late st Contact Info) Description 07/31/2024 Abstract [facility] FM 112 [facility] 110 [place] [address] Beni Nguyen MD 112 [facility] 110 [place], [place] [address] Social History Tobacco Use Types Packs/Day Years [...] Recorded Patient Health Questionnaire-2 Score 0 10/05/2023 [facility] of Occupat ional Health [...] Encounters Date Type Department Care Team ([facility] Contact Info) Description 04/10/2025 3:10 PM EDT Procedure Visit [facility] PODIATRY 112 [address] [facility] 120 [place] [address] Real Og DPM 3006 [facility] 5 [place] [address] documented as of this encounter Visit Diagnoses Not on filedocumented in this encounter Care Teams Medicaid Billing Specialist Relationship Specialty Start Date End Date Beni Nguyen MD [address] [facility] 110 [place] [address] PCP - General Internal Medicine 01/02/23 Beni Nguyen MD [address] [facility] 110 [place] [address] PCP - ACO Reach 01/12/23 Esther Connolly, RN [address] [place] [address] Clinical [facility] Family [facility] 09/27/24 11/08/24 Anastasia Rayo LPN [address] [facility] 110 [place] [address] 11/08/24 documented as of this encounter
--- OUTSIDE RECORDS SUMMARY | 2025-02-24 12:54 | XMS_ITS | Encounter Summary ---
Author Organization [facility] Address [address] [place] [address] Care Team Providers Care News Gathering Technician Name Role Phone Beni Nguyen MD Primary Care Provider [phone] Beni Nguyen MD Unavailable [phone] Esther Connolly RN Unavailable Anastasia Rayo LPN Unavailable Encounter Details Date Type Department Care Team (Late st Contact Info) Description 10/11/2023 Abstract [facility] 112 [address] [facility] 110 [place] [address] Beni Nguyen MD 112 [facility] 110 [place], [place] [id number] Social History Tobacco Use Types Packs/Day Years [...] often do you attend chur ch or evangelical services? Never 03/17/2023 Do you [...] Score 0 10/05/2023 [facility] Questionnaire Answer Date [...] [address] [facility] 120 [place] [address] Real Og DPM 3006 [facility] 5 [place] [address] documented as of this encounter Visit Diagnoses Not on filedocumented in this encounter Care Teams News Gathering Technician Relationship Specialty Start Date End Date Beni Nguyen MD [address] [facility] 110 [place] [address] PCP - General Internal Medicine 01/02/23 Beni Nguyen MD [address] [facility] 110 [place] [address] PCP - ACO Reach 01/12/23 Esther Connolly, RN [address] [place] [address] [facility] 09/27/24 11/08/24 Anastasia Rayo LPN 112 [facility] 110 [place] [address] 11/08/24 documented as of this encounter
--- OUTSIDE RECORDS SUMMARY | 2025-02-24 12:54 | XMS_ITS | Encounter Summary ---
Author Organization [facility] Address [address] [facility] [place] [address] Care Team Providers Care Hospice Superintendent Name Role Phone Beni Nguyen MD Primary Care Provider [phone] Beni Nguyen MD Unavailable [phone] Esther Connolly RN Unavailable [phone] Anastasia Rayo LPN Unavailable Encounter Details Date Type Department Care Team (Late st Contact Info) Description 08/07/2024 Abstract [facility] 112 [facility] 110 [place] [address] Beni Nguyen MD 112 [facility] 110 [place], [place] [address] Social History Tobacco Use Types Packs/Day Years [...] How often do you attend chur or sikh services? Never 03/17/2023 Do you [...] Encounters Date Type Department Care Team ([facility] Contact Info) Description 04/10/2025 3:10 PM EDT Procedure Visit [facility] 112 INDEP[address] [facility] 120 [place] [address] Real Og DPM 3006 [facility] 5 [place] [address] documented as of this encounter Visit Diagnoses Not on filedocumented in this encounter Care Teams Hospice Superintendent Relationship Specialty Start Date End Date Beni Nguyen MD [address] [facility] 110 [place] [address] PCP - General Internal Medicine 01/02/23 Beni Nguyen MD [address] [facility] 110 [place] [address] PCP - ACO Reach 01/12/23 Esther Connolly, RN [address] [place] [address] Clinical Advocate Family Medicine 09/27/24 11/08/24 Anastasia Rayo LPN 112 [address] [facility] 110 [place] [address] 11/08/24 documented as of this encounter
--- OUTSIDE RECORDS SUMMARY | 2025-02-24 12:54 | XMS_ITS | Encounter Summary ---
Author Organization [facility] Address [address] [facility] [place] [address] Care Team Providers Care Web Programmer Name Role Phone Beni Nguyen MD Primary Care Provider [phone] Beni Nguyen MD Unavailable [phone] Esther Connolly RN Unavailable Anastasia Rayo LPN Unavailable Encounter Details Date Type Department Care Team (Late st Contact Info) Description 07/10/2024 Abstract [facility] 112 [facility] 110 [place] [address] Beni Nguyen MD 112 [facility] 110 [place], [place] [id number] Social History Tobacco Use Types Packs/Day Years [...] Encounters Date Type Department Care Team ([facility] Contact Info) Description 04/10/2025 3:10 PM EDT Procedure Visit [facility] PODI[facility] 112 INDEP[address] [facility] 120 [place] [address] Real Og DPM 3006 [facility] 5 [place] [address] documented as of this encounter Visit Diagnoses Not on filedocumented in this encounter Care Teams Web Programmer Relationship Specialty Start Date End Date Beni Nguyen MD [address] [facility] 110 [place] [address] PCP - General Internal Medicine 01/02/23 Beni Nguyen MD [address] [facility] 110 [place] [address] PCP - ACO Reach 01/12/23 Esther Connolly, RN [address] [place] [address] Clinical Advocate Family Medicine 09/27/24 11/08/24 Anastasia Rayo LPN [address] [facility] 110 [place] [address] 11/08/24 documented as of this encounter
--- OUTSIDE RECORDS SUMMARY | 2025-02-24 12:54 | XMS_ITS | Encounter Summary ---
Author Organization [facility] Address [address] [place] [address] Care Team Providers Care Student Counselor Name Role Phone Beni Nguyen MD Primary Care Provider [phone] Beni Nguyen MD Unavailable [phone] Anastasia Rayo LPN Unavailable Encounter Details Date Type Department Care Team (Late st Contact Info) Description 02/05/2025 Abstract [facility] 112 INDEP[address] [facility] 110 [place] [address] Beni Nguyen MD 112 [facility] 110 [place] [address] Social History Tobacco Use Types Packs/Day Years [...] Recorded Patient Health Questionnaire-2 Score 0 12/05/2024 [facility] of Occupat ional Health - [...] Encounters Date Type Department Care Team ([facility] Contact Info) Description 04/10/2025 3:10 PM EDT Procedure Visit [facility] [address] [facility] 120 [place] [address] Real Og DPM 3006 [facility] 5 [place] [address] documented as of this encounter Visit Diagnoses Not on filedocumented in this encounter Care Teams Student Counselor Relationship Specialty Start Date End Date Beni Nguyen MD [address] [email or web address] 110 [place] [address] PCP - General Internal Medicine 01/02/23 Beni Nguyen MD [address] [email or web address] 110 [place] [address] PCP - ACO Reach 01/12/23 Anastasia Rayo LPN 112 [facility] 110 [place] [address] 11/08/24 documented as of this encounter
--- OUTSIDE RECORDS SUMMARY | 2025-02-24 12:54 | XMS_ITS | Encounter Summary ---
Author Organization [facility] Address [address] [place] [address] Care Team Providers Care Advertising Director Name Role Phone Beni Nguyen MD Primary Care Provider [phone] Beni Nguyen MD Unavailable [phone] Esther Connolly RN Unavailable Anastasia Rayo LPN Unavailable Encounter Details Date Type Department Care Team (Late st Contact Info) Description 06/20/2024 Abstract [facility] 112 [facility] 110 [place] [address] Beni Nguyen MD 112 [facility] 110 [place], [place] [address] Social History Tobacco Use Types Packs/Day Years [...] How often do you attend chur or holiness services? Never 03/17/2023 Do you [...] Upcoming Encounters Date Type Department Care Team ([facility] Contact Info) Description 04/10/2025 3:10 PM EDT Procedure Visit [facility] [address] [facility] 120 [place] [address] Real Og DPM 3006 [facility] 5 [place] [address] documented as of this encounter Visit Diagnoses Not on filedocumented in this encounter Care Teams Advertising Director Relationship Specialty Start Date End Date Beni Nguyen MD [address] [facility] 110 [place] [address] PCP - General Internal Medicine 01/02/23 Beni Nguyen MD [address] [facility] 110 [place] [address] PCP - ACO Reach 01/12/23 Esther Connolly, RN [address] [place] [address] Clinical Advocate Family Medicine 09/27/24 11/08/24 Anastasia Rayo LPN [address] [facility] 110 [place] [address] 11/08/24 documented as of this encounter
--- OUTSIDE RECORDS SUMMARY | 2025-02-24 12:54 | XMS_ITS | Encounter Summary ---
Author Organization [facility] Address [address] [facility] [place] [address] Care Team Providers Care Security Administrator Name Role Phone Beni Nguyen MD Primary Care Provider [phone] Beni Nguyen MD Unavailable [phone] Esther Connolly RN Unavailable Anastasia Rayo LPN Unavailable Encounter Details Date Type Department Care Team (Late st Contact Info) Description 07/29/2024 Abstract [facility] 112 [facility] 110 [place] [address] Beni Nguyen MD 112 [facility] 110 [place], [place] [phone] Social History Tobacco Use Types Packs/Day Years [...] Recorded Patient Health Questionnaire-2 Score 0 10/05/2023 [facility] of Occupat ional Health [...] Procedure Visit [facility] PODIATRY 112 [address] [facility] 120 [place] [address] Real Og DPM 3006 [facility] 5 [place] [address] documented as of this encounter Visit Diagnoses Not on filedocumented in this encounter Care Teams Security Administrator Relationship Specialty Start Date End Date Beni Nguyen MD [address] [facility] 110 [place] [address] PCP - General Internal Medicine 01/02/23 Beni Nguyen MD [address] [facility] 110 [place] [address] PCP - ACO Reach 01/12/23 Esther Connolly, RN [address] [place] [address] Clinical Advocate Family Medicine 09/27/24 11/08/24 Anastasia Rayo LPN [address] [facility] 110 [place] [address] 11/08/24 documented as of this encounter
--- OUTSIDE RECORDS SUMMARY | 2025-02-24 12:54 | XMS_ITS | Encounter Summary ---
Author Organization [facility] Address [address] [facility] [place] [address] Care Team Providers Care Pier Runner Name Role Phone Beni Nguyen MD Primary Care Provider [phone] Beni Nguyen MD Unavailable [phone] Esther Connolly RN Unavailable [phone] Anastasia Rayo LPN Unavailable Encounter Details Date Type Department Care Team (Late st Contact Info) Description 08/19/2024 Abstract [facility] 112 [facility] 110 [place] [address] Beni Nguyen MD 112 [facility] 110 [place], [place] [id number] Social History Tobacco Use Types Packs/Day Years [...] How often do you attend chur or moravian services? Never 03/17/2023 Do you [...] Encounters Date Type Department Care Team ([facility] Contact Info) Description 04/10/2025 3:10 PM EDT Procedure Visit [facility] PODI[facility] 112 INDEP[address] [facility] 120 [place] [address] Real Og DPM 3006 [facility] 5 [place] [address] documented as of this encounter Visit Diagnoses Not on filedocumented in this encounter Care Teams Pier Runner Relationship Specialty Start Date End Date Beni Nguyen MD [address] [facility] 110 [place] [address] PCP - General Internal Medicine 01/02/23 Beni Nguyen MD [address] [facility] 110 [place] [address] PCP - ACO Reach 01/12/23 Esther Connolly, RN [address] [place] [address] Clinical Advocate Family Medicine 09/27/24 11/08/24 Anastasia Rayo LPN [address] [facility] 110 [place] [address] 11/08/24 documented as of this encounter
--- OUTSIDE RECORDS SUMMARY | 2025-02-24 12:54 | XMS_ITS | Encounter Summary ---
Author Organization [facility] Address [address] [facility] [place] [address] Care Team Providers Care Estimating Engineer Name Role Phone Beni Nguyen MD Primary Care Provider [phone] Beni Nguyen MD Unavailable [phone] Esther Connolly RN Unavailable Anastasia Rayo LPN Unavailable Encounter Details Date Type Department Care Team (Late st Contact Info) Description 07/04/2024 Abstract [facility] 112 [facility] 110 [place] [address] Beni Nguyen MD 112 [facility] 110 [place], [place] [phone] Social History Tobacco Use Types Packs/Day Years [...] Recorded Patient Health Questionnaire-2 Score 0 10/05/2023 [facility] of Occupat [...] Procedure Visit [facility] PODIATRY 112 [address] [facility] 120 [place] [address] Real Og DPM 3006 [facility] 5 [place] [address] documented as of this encounter Visit Diagnoses Not on filedocumented in this encounter Care Teams Estimating Engineer Relationship Specialty Start Date End Date Beni Nguyen MD [address] [facility] 110 [place] [address] PCP - General Internal Medicine 01/02/23 Beni Nguyen MD [address] [facility] 110 [place] [address] PCP - ACO Reach 01/12/23 Esther Connolly, RN [address] [place] [address] Clinical Advocate Family Medicine 09/27/24 11/08/24 Anastasia Rayo LPN [address] [facility] 110 [place] [address] 11/08/24 documented as of this encounter
--- OUTSIDE RECORDS SUMMARY | 2025-02-24 12:54 | XMS_ITS | Encounter Summary ---
Author Organization [facility] Address [address] [facility] [place] [address] Care Team Providers Care Deputy Program Manager Name Role Phone Beni Nguyen MD Primary Care Provider [phone] Beni Nguyen MD Unavailable [phone] Esther Connolly RN Unavailable Anastasia Rayo LPN Unavailable Encounter Details Date Type Department Care Team (Late st Contact Info) Description 07/24/2024 Abstract [facility] [address] [facility] 110 [place] [address] Beni Nguyen MD 112 [facility] 110 [place], [place] [address] Social History Tobacco Use Types Packs/Day Years [...] Upcoming Encounters Date Type Department Care Team ([facility] Contact Info) Description 04/10/2025 3:10 PM EDT Procedure Visit [facility] PODIATRY 112 INDEP[address] [facility] 120 [place] [address] Real Og DPM 3006 [facility] 5 [place] [address] documented as of this encounter Visit Diagnoses Not on filedocumented in this encounter Care Teams Deputy Program Manager Relationship Specialty Start Date End Date Beni Nguyen MD [address] [facility] 110 [place] [address] PCP - General Internal Medicine 01/02/23 Beni Nguyen MD [address] [facility] 110 [place] [address] PCP - ACO Reach 01/12/23 Esther Connolly, RN [address] [place] [address] Clinical Advocate Family Medicine 09/27/24 11/08/24 Anastasia Rayo LPN 112 [address] [facility] 110 [place] [address] 11/08/24 documented as of this encounter
--- OUTSIDE RECORDS SUMMARY | 2025-02-24 12:54 | XMS_ITS | Encounter Summary ---
Author Organization [facility] Address [address] [facility] [place] [address] Care Team Providers Care Mill Operator Head Name Role Phone Beni Nguyen MD Primary Care Provider [phone] Beni Nguyen MD Unavailable [phone] Esther Connolly RN Unavailable Anastasia Rayo LPN Unavailable Encounter Details Date Type Department Care Team (Late st Contact Info) Description 08/07/2024 Abstract [facility] 112 [facility] 110 [place] [address] Beni Nguyen MD 112 [facility] 110 [place], [place] [address] Social History Tobacco Use Types Packs/Day Years [...] Recorded Patient Health Questionnaire-2 Score 0 10/05/2023 [facility] of Occupat ional Health - [...] Procedure Visit [facility] PODIATRY 112 [address] [facility] 120 [place] [address] Real Og DPM 3006 [facility] 5 [place] [address] documented as of this encounter Visit Diagnoses Not on filedocumented in this encounter Care Teams Mill Operator Head Relationship Specialty Start Date End Date Beni Nguyen MD [address] [facility] 110 [place] [address] PCP - General Internal Medicine 01/02/23 Beni Nguyen MD [address] [facility] 110 [place] [address] PCP - ACO Reach 01/12/23 Esther Connolly, RN [address] [place] [address] Clinical Advocate Family Medicine 09/27/24 11/08/24 Anastasia Rayo LPN 112 [facility] 110 [place] [address] 11/08/24 documented as of this encounter
--- OUTSIDE RECORDS SUMMARY | 2025-02-24 12:54 | XMS_ITS | Encounter Summary ---
Author Organization [facility] Address [address] [facility] [place] [address] Care Team Providers Care Parts Classifier Name Role Phone Beni Nguyen MD Primary Care Provider [phone] Beni Nguyen MD Unavailable [phone] Esther Connolly RN Unavailable [phone] Anastasia Rayo LPN Unavailable Encounter Details Date Type Department Care Team (Late st Contact Info) Description 07/08/2024 Abstract [facility] [address] [facility] 110 [place] [address] Beni Nguyen MD 112 [facility] 110 [place], [place] [phone] Social History Tobacco Use Types Packs/Day Years [...] Recorded Patient Health Questionnaire-2 Score 0 10/05/2023 [facility] of Occupat ional Health - Occupational [...] Encounters Date Type Department Care Team ([facility] Contact Info) Description 04/10/2025 3:10 PM EDT Procedure Visit [facility] PODIATRY 112 [address] [facility] 120 [place] [address] Real Og DPM 3006 [facility] 5 [place] [address] documented as of this encounter Visit Diagnoses Not on filedocumented in this encounter Care Teams Parts Classifier Relationship Specialty Start Date End Date Beni Nguyen MD [address] [facility] 110 [place] [address] PCP - General Internal Medicine 01/02/23 Beni Nguyen MD [address] [facility] 110 [place] [address] PCP - ACO Reach 01/12/23 Esther Connolly, RN [address] [place] [address] Clinical Advocate Family Medicine 09/27/24 11/08/24 Anastasia Rayo LPN [address] [facility] 110 [place] [address] 11/08/24 documented as of this encounter
--- OUTSIDE RECORDS SUMMARY | 2025-02-24 12:54 | XMS_ITS | Encounter Summary ---
Author Organization [facility] Address [address] [place] [address] Care Team Providers Care Enterprise Architect Manager Name Role Phone Beni Nguyen MD Primary Care Provider [phone] Beni Nguyen MD Unavailable [phone] Esther Connolly RN Unavailable [phone] Anastasia Rayo LPN Unavailable Encounter Details Date Type Department Care Team (Late st Contact Info) Description 07/26/2024 Abstract [facility] 112 [facility] 110 [place] [address] Beni Nguyen MD 112 [facility] 110 [place], [place] [phone] Social History Tobacco Use Types Packs/Day Years [...] Upcoming Encounters Date Type Department Care Team ([facility] Contact Info) Description 04/10/2025 3:10 PM EDT Procedure Visit [facility]ODI[facility] [address] [facility] 120 [place] [address] Real Og DPM [address] [facility] 5 [place] [address] documented as of this encounter Visit Diagnoses Not on filedocumented in this encounter Care Teams Enterprise Architect Manager Relationship Specialty Start Date End Date Beni Nguyen MD [address] [facility] 110 [place] [address] PCP - General Internal Medicine 01/02/23 Beni Nguyen MD [address] [facility] 110 [place] [address] PCP - ACO Reach 01/12/23 Esther Connolly, RN [address] [place] [address] Clinical [facility] Family [facility] 09/27/24 11/08/24 Anastasia Rayo LPN 112 [facility] 110 [place] [address] 11/08/24 documented as of this encounter
--- OUTSIDE RECORDS SUMMARY | 2025-02-24 12:54 | XMS_ITS | Encounter Summary ---
Author Organization [facility] Address [address] [facility] [place] [address] Care Team Providers Care Kerfer Machine Operator Name Role Phone Beni Nguyen MD Primary Care Provider [phone] Beni Nguyen MD Unavailable [phone] Esther Connolly RN Unavailable [phone] Anastasia Rayo LPN Unavailable Encounter Details Date Type Department Care Team (Late st Contact Info) Description 07/11/2024 Abstract [facility] [address] [facility] 110 [place] [address] Beni Nguyen MD 112 [facility] 110 [place], [place] [address] Social History Tobacco Use Types Packs/Day Years [...] Upcoming Encounters Date Type Department Care Team ([facility] Contact Info) Description 04/10/2025 3:10 PM EDT Procedure Visit [facility] PODIATRY 112 [address] [facility] 120 [place] [address] Real Og DPM 3006 [facility] 5 [place] [address] documented as of this encounter Visit Diagnoses Not on filedocumented in this encounter Care Teams Kerfer Machine Operator Relationship Specialty Start Date End Date Beni Nguyen MD [address] [facility] 110 [place] [address] PCP - General Internal Medicine 01/02/23 Beni Nguyen MD [address] [facility] 110 [place] [address] PCP - ACO Reach 01/12/23 Esther Connolly, RN [address] [place] [address] Clinical [facility] 09/27/24 11/08/24 Anastasia Rayo LPN [address] [facility] 110 [place] [address] 11/08/24 documented as of this encounter
--- OUTSIDE RECORDS SUMMARY | 2025-02-24 12:54 | XMS_ITS | Encounter Summary ---
Author Organization [facility] Address [address] [facility] [place] [address] Care Team Providers Care Hypnotherapist Name Role Phone Beni Nguyen MD Primary Care Provider [phone] Beni Nguyen MD Unavailable [phone] Esther Connolly RN Unavailable Anastasia Rayo LPN Unavailable Encounter Details Date Type Department Care Team (Late st Contact Info) Description 07/26/2024 Abstract [facility] 112 [facility] 110 [place] [address] Beni Nguyen MD 112 [facility] 110 [place], [place] [id number] Social History Tobacco Use Types Packs/Day Years [...] How often do you attend chur or methodist services? Never 03/17/2023 Do you belong to any clubs o r organizations such as zoroastrian groups, unions, fraternal or athletic groups, or [...] Recorded Patient Health Questionnaire-2 Score 0 10/05/2023 [facility] - Occupational [...] Procedure Visit [facility] [address] [facility] 120 [place] [address] Real Og DPM 3006 [facility] 5 [place] [address] documented as of this encounter Visit Diagnoses Not on filedocumented in this encounter Care Teams Hypnotherapist Relationship Specialty Start Date End Date Beni Nguyen MD [address] [facility] 110 [place] [address] PCP - General Internal Medicine 01/02/23 Beni Nguyen MD [address] [facility] 110 [place] [address] PCP - ACO Reach 01/12/23 Esther Connolly, RN [address] [place] [address] Clinical Advocate Family Medicine 09/27/24 11/08/24 Anastasia Rayo LPN [address] [facility] 110 [place] [address] 11/08/24 documented as of this encounter
--- OUTSIDE RECORDS SUMMARY | 2025-02-24 12:54 | XMS_ITS | Clinical Summary ---
Author Organization [facility] Address [address] [place] [address] Care Team Providers Care Regulatory Product Manager Name Role Phone Bein Nguyen MD Primary Care Provider [phone] Beni Nguyen MD Unavailable [phone] Anastasia Rayo LPN Unavailable Allergies No known active allergies Medications Multiple Vitamins-Minerals (GNP ONE DAILY MENS 50+ADVANCED PO) 2008 Active loratadine (Claritin) 10 MG tablet Take 10 mg by mouth Daily Active omega-3 (Fish Oil) 1000 MG capsule Take 2 capsules by mouth Daily Active nystatin (Mycostatin) 910962 UNIT/GM powder 2022 Active apixaban (Eliquis) 5 MG tabletIndications:Pulm onary embolism, unspecified chronicity, unspecified pulmonary embolism type, unspecified whether acute cor pulmonale present (HCC) TAKE 1 TABLET BY MOUTH TWICE DAILY 180 tablet 3 2023 Active baclofen (Lioresal) 10 MG tabletIndications:Cerv ical stenosis of spinal canal TAKE 1 TABLET BY MOUTH WITH FOOD OR MILK 3 TIMES DAILY 270 tablet 1 2023 Active pyridostigmine (Mestinon) 60 MG tabletIndications:Myas thenia gravis (HCC) TAKE 1 TABLET BY MOUTH IN THE MORNING AND 1 TABLET BY MOUTH AT NOON AND 1 TABLET BY MOUTH IN THE EVENING AND 1 TABLET BY MOUTH BEFORE BEDTIME 400 tablet 3 2024 Active lisinopril 20 MG tabletIndications:Arturo gn essential hypertension Take 1 tablet (20 mg) by mouth Daily 90 tablet 3 09/096 Active simvastatin (Zocor) 40 MG tabletIndications:Pure hypercholesterolemia TAKE 1 TABLET BY MOUTH ONCE DAILY IN THE EVENING 90 tablet 3 2024 Active hydrALAZINE (Apresoline) 50 MG tabletIndications:Arturo gn essential hypertension Take 1 tablet (50 mg) by mouth in the morning and 1 tablet (50 mg) before bedtime. 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, without long-term current use of insulin (HCC) TAKE 1 CAPSULE BY MOUTH IN THE MORNING AND 1 CAPSULE BY MOUTH BEFORE BEDTIME 180 capsule 3 2024 Active Additional Information Patient taking differently: 600 mg Oral 2 times daily, Morning, Bedtime, Reported on 02/18/2025 potassium chloride CR (Klor-Con M10) 10 MEQ ER tabletIndications:Hypo kalemia TAKE 1 TABLET BY MOUTH IN THE MORNING AND 1 TABLET BY MOUTH BEFORE BEDTIME TAKE WITH FOOD 180 tablet 3 2024 Active predniSONE (Deltasone) 10 MG tabletIndications:Myas thenia gravis (HCC) TAKE 1 AND 1/2 TABLETS BY MOUTH DAILY 135 tablet 2024 Active furosemide (Lasix) 20 MG tabletIndications:Loca lized edema Take 1-2 tablets (20-40 mg) by mouth Daily 180 tablet 3 11/28 Active spironolactone (Aldactone) 25 MG tablet Take 25 mg by mouth Daily 2024 Active cephalexin (Keflex) 500 MG capsuleIndications:Olesya lulitis of right lower extremity Take 1 capsule (500 mg) by mouth in the morning and 1 capsule (500 mg) in the evening and 1 capsule (500 mg) before bedtime. Do all this for 10 days. 30 capsule 02/28 Active oxyCODONE-acetaminophe n (Percocet) 5-325 MG tabletIndications:Pain Take 1 tablet by mouth every 12 (twelve) hours if needed for moderate pain or severe pain 60 tablet 03/20 Active cephalexin (Keflex) 500 MG capsule Take 500 mg by mouth in the morning and 500 mg before bedtime. 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 Hypercoagulable state ([facility]) 12/27/2022 Hypokalemia 12/27/2022 Hyponatremia 12/27/2022 Loss of [...] reference range 11/17/2023 11/17/2023 Pulmonary embolism 12/27/2022 03/29/202 4 Encounters Date Type Department Care Team Description 02/24/2025 Abstract [facility] [address] [facility] [address] [place] [address] Beni Nguyen MD 02/18/2025 11:30 AM EDT Office Visit [facility] [address] [facility] [address] [place] [address] Leela Cherry, SPEECH LANGUAGE THERAPIST Cellulitis of right lower extremity (Primary Dx); Muscle pain; Trigger middle finger of right hand; Pain 02/18/2025 Patient Outreach [facility] [address] [place] [address] Anastasia Rayo LPN 02/18/2025 Telephone [facility] [address] [facility] [address] [place] [address] Leela Cherry, SPEECH LANGUAGE THERAPIST 02/18/2025 Bamboo flowsheet [facility] [address] [facility] [address] [place] [address] Leela Cherry, SPEECH LANGUAGE THERAPIST 02/18/2025 Travel 02/17/2025 Abstract [facility] [address] [facility] [address] [place] [address] Beni Nguyen MD 02/14/2025 Abstract [facility] [address] [facility] [address] [place] [address] Beni Nguyen MD 02/14/2025 Abstract [facility] [address] [facility] [address] [place] [address] Beni Nguyen MD 02/05/2025 Abstract [facility] [address] [facility] [address] [place] [address] Beni Nguyen MD 01/30/2025 3:10 PM EDT Procedure Visit [facility] [address] [facility] [address] [place] [address] Real Og, SRIDHAR 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cosis of toenails of both feet (Primary Dx); Venous insufficiency 01/30/2025 Bamboo flowsheet [facility] [address] [facility] [address] [place] [address] Real Og DPM 01/30/2025 Travel 01/29/2025 Telephone [facility] [address] [facility] [address] [place] [address] Leela Cherry NP FYI 01/23/2025 Abstract [facility] 112 [facility] 110 [place] [address] Beni Nguyen MD 01/08/2025 Abstract [facility] [address] [facility] 110 [place] [address] Beni Nguyen MD 01/06/2025 12:30 PM EDT Office Visit [place] [address] [place] [address] Sandro Saunders DO Myasthenia gravis ([facility]) (Primary Dx); Class 3 severe obesity due to excess calories with serious comorbidity and body mass index (BMI) of 45.0 to 49.9 in adult ([facility]); Ulnar neuropathy of both upper extremities 01/06/2025 Bamboo flowsheet [place] [address] [place], [place] [address] [address] Sandro Saunders DO 01/02/2025 4:20 PM EDT Office Visit [facility] 112 [facility] 120 [place] [address] Real Og, DPMarcial Laceration of lesser toe of left foot without foreign body present, nail damage status unspecified, initial encounter (Primary Dx); Closed nondisplaced fracture of distal phalanx of left great toe, initial encounter; Venous insufficiency 01/02/2025 Bamboo flowsheet [facility] 112 [facility] 120 [place] [address] Real Og DPM 01/02/2025 Travel 12/31/2024 Abstract [facility] [address] [facility] 110 [place] [address] Beni Nguyen MD 12/31/2024 Abstract [facility] [address] [facility] 110 [place] [address] Beni Nguyen MD 12/18/2024 Patient Outreach [facility] [place] [address] Anastasia Rayo FIRE PREVENTION CAPTAIN 12/18/2024 Abstract [facility] [address] [facility] [address] [place] [address] Beni Nguyen MD 12/12/2024 1:30 PM EDT Office Visit [facility] [address] [facility] [address] [place] [address] Real Og DPM Laceration of lesser toe of left foot without foreign body present, nail damage status unspecified, initial encounter (Primary Dx); Closed nondisplaced fracture of distal phalanx of left great toe, initial encounter 12/12/2024 1:25 PM EDT Ancillary Procedure [facility] [address] [facility] [address] [place] [address] 12/12/2024 Bamboo flowsheet [facility] [address] [facility] [address] [place] [address] Real Og DPM 12/12/2024 Travel 12/11/2024 Abstract [facility] [address] [facility] [address] [place] [address] Beni Nguyen MD 12/05/2024 2:40 PM EDT Office Visit [facility] [address] [facility] [address] [place] [address] Real Og DPM Laceration of lesser toe of left foot without foreign body present, nail damage status unspecified, initial encounter (Primary Dx); Closed nondisplaced fracture of distal phalanx of left great toe, initial encounter 12/05/2024 2:00 PM EDT Office Visit [facility] [address] [facility] [address] [place] [address] Leela Cherry, SPEECH LANGUAGE THERAPIST Fall, subsequent encounter (Primary Dx); Decreased mobility; Weakness; Pain 12/05/2024 Bamboo flowsheet [facility] [address] [facility] [address] [place] [address] Leela Cherry, SPEECH LANGUAGE THERAPIST 12/05/2024 Travel 11/28/2024 Refill [facility] [address] [place] [address] RayoMingoAnastasia, FIRE PREVENTION CAPTAIN Localized edema 11/28/2024 Patient Outreach [facility] [address] [place] [address] Mingo Rayoika, FIRE PREVENTION CAPTAIN 11/26/2024 Refill [facility] [address] [facility] [address] [place] [address] Leela Cherry, ANAMARIA Localized edema from Last 3 Months Immunizations Immunization Administration [...] Recorded Patient Health Questionnaire-2 Score 2 02/18/2025 [facility] [...] Pulse 84 02/18/2025 11:45 AM EDT Temperature 36.7 C (98 F) 11/06/2023 12:54 PM EDT Respiratory Rate 18 02/18/2025 11:45 AM EDT Oxygen Saturation 94% 02/18/2025 11:45 AM EDT Inhaled Oxygen Concentration - - Weight 138 kg (305 lb) 02/18/2025 11:45 AM EDT Height 172.7 cm (5' 8 ) 02/18/2025 11:45 AM EDT Body Mass Index 46.38 02/18/2025 11:45 AM EDT Plan of Treatment Upcoming Encounters Date Type Department Care Team (Late st Contact Info) Description 04/10/2025 3:10 PM EDT Procedure Visit [facility] [address] [facility] [address] [place] [address] Real Og DPM 8619 [facility] 5 [place] [address] Health Maintenance Due Date Last Done Comments Diabetes: Retinopathy Screening 1955 Diabetes: Urine Protein Screening 08/17/2021 08/17/2020, 05/27/2019, 03/15/2018 Diabetes: Hemoglobin A1C 12/16/2024 025, 09/25/2023, 03/31/2023, Additional history exists Influenza Vaccine (#1) 2025 4, 06/22/2023, 07/13/2022, Additional history exists Pneumococcal Vaccine: 65+ Years [...] distal phalanx with slight displacement us Real Og DPM IMG XR PROCEDURES Final Res ult * (ABNORMAL) POCT Glycated hemoglobin, total (09/17/2024 2:55 PM EST) Hemoglobin A1C 6.2 Blood 09/17/2024 2:55 PM EST Result [facility] Aide LINN POINT OF CARE TEST ENTER/EDIT ORDERABLES Final Result * (ABNORMAL) Microalbumin / creatinine urine ratio (08/17/2020) UCREA 295(H) 39 - 259 [facility] MALB 5.2 [facility] Comment:mALB reference range not established. MICROALB/CREAT RATIO 17.6 [facility] 08/17/2020 Aide LINN LAB URINE ORDERABLES Final Res ult Performing Organization Address City/State/[facility] Co de Phone Number [facility] from Last 3 Months or Most Recently Relevant to Health Maintenance Insurance MEDICARE [facility] Care Teams Regulatory Product Manager Relationship Specialty Start Date End Date Beni Nguyen MD [address] [facility] 110 [place] [address] PCP - General Internal Medicine 01/02/23 Beni Nguyen MD [address] [facility] 110 [place] [address] PCP - ACO Reach 01/12/23 Anastasia Rayo LPN [address] [place] [address] 11/08/24
--- OUTSIDE RECORDS SUMMARY | 2025-02-24 12:54 | XMS_ITS | Encounter Summary ---
Author Organization [facility] Address [address] [facility] [place] [address] Care Team Providers Care Prescriptionist Name Role Phone Beni Nguyen MD Primary Care Provider [phone] Beni Nguyen MD Unavailable [phone] Esther Connolly RN Unavailable [phone] Anastasia Rayo LPN Unavailable Encounter Details Date Type Department Care Team (Late st Contact Info) Description 08/01/2024 Abstract [facility] 112 [facility] 110 [place] [address] Beni Nguyen MD 112 [facility] 110 [place], [place] [id number] Social History Tobacco Use Types Packs/Day Years [...] CI PODIATRY [address] [facility] 120 [place] [address] Real Og DPM 3006 [facility] 5 [place] [address] documented as of this encounter Visit Diagnoses Not on filedocumented in this encounter Care Teams Prescriptionist Relationship Specialty Start Date End Date Beni Nguyen MD [address] [facility] 110 [place] [address] PCP - General Internal Medicine 01/02/23 Beni Nguyen MD [address] [facility] 110 [place] [address] PCP - ACO Reach 01/12/23 Esther Connolly, RN [address] [place] [address] Clinical Advocate Family Medicine 09/27/24 11/08/24 Anastasia Rayo LPN 112 [address] [facility] 110 [place] [address] 11/08/24 documented as of this encounter
--- OUTSIDE RECORDS SUMMARY | 2025-02-24 12:54 | XMS_ITS | Encounter Summary ---
Author Organization [facility] Address [address] [facility] [place] [address] Care Team Providers Care Foreign Diplomat Name Role Phone Beni Nguyen MD Primary Care Provider [phone] Beni Nguyen MD Unavailable [phone] Esther Connolly RN Unavailable Anastasia Rayo LPN Unavailable Encounter Details Date Type Department Care Team (Late st Contact Info) Description 08/07/2024 Abstract [facility] 112 [facility] 110 [place] [address] Beni Nguyen MD 112 [facility] 110 [place], [place] [id number] Social History Tobacco Use Types Packs/Day Years [...] Procedure Visit [facility] [address] [facility] 120 [place] [address] Real Og DPM 3006 [facility] 5 [place] [address] documented as of this encounter Visit Diagnoses Not on filedocumented in this encounter Care Teams Foreign Diplomat Relationship Specialty Start Date End Date Beni Nguyen MD [address] [facility] 110 [place] [address] PCP - General Internal Medicine 01/02/23 Beni Nguyen MD [address] [facility] 110 [place] [address] PCP - ACO Reach 01/12/23 Esther Connolly, RN [address] [place] [address] Clinical Advocate Family Medicine 09/27/24 11/08/24 Anastasia Rayo LPN [address] [facility] 110 [place] [address] 11/08/24 documented as of this encounter
--- OUTSIDE RECORDS SUMMARY | 2025-02-24 12:54 | XMS_ITS | Encounter Summary ---
Author Organization [facility] Address [address] [facility] [address] Care Team Providers Care Manual Qa Tester Name Role Phone Beni Nguyen MD Primary Care Provider [phone] Beni Nguyen MD Unavailable [phone] Esther Connolly RN Unavailable Anastasia Rayo LPN Unavailable Encounter Details Date Type Department Care Team (Late st Contact Info) Description 08/22/2024 Abstract [facility] 112 [facility] 110 [place] [address] Beni Nguyen MD 112 [facility] 110 [place], [place] [phone] Social History Tobacco Use Types Packs/Day Years [...] [facility] Contact Info) Description 04/10/2025 3:10 PM EDT Procedure Visit [facility] [address] [facility] 120 [place] [address] Real Og DPM 3006 [facility] 5 [place] [address] documented as of this encounter Visit Diagnoses Not on filedocumented in this encounter Care Teams Manual Qa Tester Relationship Specialty Start Date End Date Beni Nguyen MD [address] [facility] 110 [place] [address] PCP - General Internal Medicine 01/02/23 Beni Nguyen MD [address] [facility] 110 [place] [address] PCP - ACO Reach 01/12/23 Esther Connolly, RN [address] [place] [address] Clinical Advocate Family Medicine 09/27/24 11/08/24 Anastasia Rayo LPN [address] [facility] 110 [place] [address] 11/08/24 documented as of this encounter
--- OUTSIDE RECORDS SUMMARY | 2025-02-24 12:54 | XMS_ITS | Encounter Summary ---
Author Organization [facility] Address [address] [email or web address] [address] Care Team Providers Care Large Animal Veterinarian Name Role Phone Beni Nguyen MD Primary Care Provider [phone] Beni Nguyen MD Unavailable [phone] Esther Connolly RN Unavailable Anastasia Rayo LPN Unavailable Encounter Details Date Type Department Care Team (Late st Contact Info) Description 07/10/2024 Abstract [facility] 112 [facility] 110 [place] [address] Beni Nguyen MD 112 [facility] 110 [place], [place] [id number] Social History Tobacco Use Types Packs/Day Years [...] Upcoming Encounters Date Type Department Care Team ([facility] Contact Info) Description 04/10/2025 3:10 PM EDT Procedure Visit [facility] [address] [facility] 120 [place] [address] Real Og DPM 3006 [facility] 5 [place] [address] documented as of this encounter Visit Diagnoses Not on filedocumented in this encounter Care Teams Large Animal Veterinarian Relationship Specialty Start Date End Date Beni Nguyen MD [address] [facility] 110 [place] [address] PCP - General Internal Medicine 01/02/23 Beni Nguyen MD [address] [facility] 110 [place] [address] PCP - ACO Reach 01/12/23 Esther Connolly, RN [address] [place] [address] Clinical Advocate Family Medicine 09/27/24 11/08/24 Anastasia Rayo LPN [address] [facility] 110 [place] [address] 11/08/24 documented as of this encounter
--- OUTSIDE RECORDS SUMMARY | 2025-02-24 12:54 | XMS_ITS | Encounter Summary ---
Author Organization [facility] Address [address] [facility] [place] [address] Care Team Providers Care Talk Show Host Name Role Phone Beni Nguyen MD Primary Care Provider [phone] Beni Nguyen MD Unavailable [phone] Esther Connolly RN Unavailable Anastasia Rayo LPN Unavailable Encounter Details Date Type Department Care Team (Late st Contact Info) Description 07/17/2024 Abstract [facility] 112 [facility] 110 [place] [address] Beni Nguyen MD 112 [facility] 110 [place], [place] [id number] Social History Tobacco Use Types Packs/Day Years [...] Encounters Date Type Department Care Team ([facility] Contact Info) Description 04/10/2025 3:10 PM EDT Procedure Visit [facility] [address] [facility] 120 [place] [address] Real Og DPM 3006 [facility] 5 [place] [address] documented as of this encounter Visit Diagnoses Not on filedocumented in this encounter Care Teams Talk Show Host Relationship Specialty Start Date End Date Beni Nguyen MD [address] [facility] 110 [place] [address] PCP - General Internal Medicine 01/02/23 Beni Nguyen MD [address] [facility] 110 [place] [address] PCP - ACO Reach 01/12/23 Esther Connolly, RN [address] [place] [address] Clinical Advocate Family Medicine 09/27/24 11/08/24 Anastasia Rayo LPN [address] [facility] 110 [place] [address] 11/08/24 documented as of this encounter
--- OUTSIDE RECORDS SUMMARY | 2025-02-24 12:54 | XMS_ITS | Encounter Summary ---
Author Organization [facility] Address [address] [facility] [place] [address] Care Team Providers Care Fabrics And Material Cutter Name Role Phone Beni Nguyen MD Primary Care Provider [phone] Beni Nguyen MD Unavailable [phone] Esther Connolly RN Unavailable [phone] Anastasia Rayo LPN Unavailable Encounter Details Date Type Department Care Team (Late st Contact Info) Description 07/29/2024 Abstract [facility] 112 [facility] 110 [place] [address] Beni Nguyen MD 112 [facility] 110 [place], [place] [id number] Social History Tobacco Use Types Packs/Day Years [...] How often do you attend chur or zoroastrian services? Never 03/17/2023 Do you [...] Procedure Visit [facility] [address] [facility] 120 [place] [address] Real Og DPM 3006 [facility] 5 [place] [address] documented as of this encounter Visit Diagnoses Not on filedocumented in this encounter Care Teams Fabrics And Material Cutter Relationship Specialty Start Date End Date Beni Nguyen MD [address] [facility] 110 [place] [address] PCP - General Internal Medicine 01/02/23 Beni Nguyen MD [address] [facility] 110 [place] [address] PCP - ACO Reach 01/12/23 Esther Connolly, RN [address] [place] [address] Clinical [facility]ocate Family [facility] 09/27/24 11/08/24 Anastasia Rayo LPN [address] [facility] 110 [place] [address] 11/08/24 documented as of this encounter
--- OUTSIDE RECORDS SUMMARY | 2025-02-24 12:54 | XMS_ITS | Encounter Summary ---
Author Organization [facility] Address [address] [facility] [place] [address] Care Team Providers Care Riding Silks Custodian Name Role Phone Beni Nguyen MD Primary Care Provider [phone] Beni Nguyen MD Unavailable [phone] Esther Connolly RN Unavailable Anastasia Rayo LPN Unavailable Encounter Details Date Type Department Care Team (Late st Contact Info) Description 07/30/2024 Abstract [facility] 112 [facility] 110 [place] [address] Beni Nguyen MD 112 [facility] 110 [place], [place] [address] Social History Tobacco Use Types Packs/Day Years [...] Procedure Visit [facility] 112 [facility] [facility] 120 [place] [address] Real Og DPM 3006 [facility] 5 [place] [address] documented as of this encounter Visit Diagnoses Not on filedocumented in this encounter Care Teams Riding Silks Custodian Relationship Specialty Start Date End Date Beni Nguyen MD [address] [facility] 110 [place] [address] PCP - General Internal Medicine 01/02/23 Beni Nguyen MD [address] [facility] 110 [place] [address] PCP - ACO Reach 01/12/23 Esther Connolly, RN [address] [place] [address] Clinical [facility] 09/27/24 11/08/24 Anastasia Rayo LPN [address] [facility] [facility] 110 [place] [address] 11/08/24 documented as of this encounter
--- OUTSIDE RECORDS SUMMARY | 2025-02-24 12:54 | XMS_ITS | Encounter Summary ---
Author Organization [facility] Address [address] [facility] [place] [address] Care Team Providers Care Deicer Repairer Pneumatic Name Role Phone Beni Nguyen MD Primary Care Provider [phone] Beni Nguyen MD Unavailable [phone] Esther Connolly RN Unavailable [phone] Anastasia Rayo LPN Unavailable Encounter Details Date Type Department Care Team (Late st Contact Info) Description 07/08/2024 Abstract [facility] 112 [facility] 110 [place] [address] Beni Nguyen MD 112 [facility] 110 [place], [place] [address] Social History Tobacco Use Types Packs/Day Years [...] 112 [address] [facility] 120 [place] [address] Real Og DPM 3006 [facility] 5 [place] [address] documented as of this encounter Visit Diagnoses Not on filedocumented in this encounter Care Teams Deicer Repairer Pneumatic Relationship Specialty Start Date End Date Beni Nguyen MD [address] [facility] 110 [place] [address] PCP - General Internal Medicine 01/02/23 Beni Nguyen MD [address] [facility] 110 [place] [address] PCP - ACO Reach 01/12/23 Esther Connolly, RN [address] [place] [address] Clinical [facility]ocate Family Medicine 09/27/24 11/08/24 Anastasia Rayo LPN [address] [facility] 110 [place] [address] 11/08/24 documented as of this encounter
--- OUTSIDE RECORDS SUMMARY | 2025-02-24 12:54 | XMS_ITS | Patient Health Record ---
Author Organization [facility] Address [address] [place] [address] Care Team Providers Care Wheel Fitter Name Role Phone Beni Nguyen MD Primary Care Provider Ivan Velazquez [phone] Allergies No Known Allergies Reason For Referral [...] a day for 30 day(s) Active pyRIDostigmine [place] 60 MG 1 tablet Orally every 4 [...] day for 30 day(s) * Lot # [id number], Expiration Date: 10/202409/08/2022 Not-Taking Immunizations Vaccine Route Administration Date Status Comme nts Flu, Fluzone High-Dose (2022 -2023) (18829) 65 yrs+ Unknown 06/22/2023 Administered Pneumococcal (Pneumovax [...] Problem Status W/U Status Risk Notes Problem 99826174 Essential (primary) hypertension (I10) Active confirmed Problem 21123231 Myasthenia gravi s without (acute) exacerbation (G70.00) Active confirmed Problem 459125175 Dermatochalasis of right eye, unspecified eyelid (H02.833) Active confirmed Problem 987629738 Dermatochalasis of left eye, unspecified eyelid (H02.836) Active confirmed Problem 961820317 Paroxysmal atria l fibrillation (I48.0) Active confirmed Problem Morbid obesity (915453918) Morbid obesity (E66.01) Active confirmed Problem Myasthenia gravis (58858282) Myasthenia gravis (G70.00) Active confirmed Problem Obstructive sleep apnea syndrome (25764048) JAMISON (obstructive sleep apnea) (G47.33) Active confirmed Problem Obstructive sleep apnea syndrome (94231026) JAMISON on CPAP (G47.33) Active confirmed Problem History of pulmonary embolus (188784393) History of pulmonary embolism (Z86.711) Active confirmed Problem Malignant tumor of urinary bladder (673398662) Malignant neoplasm of urinary bladder, unspecified site (C67.9) Active confirmed Problem 923039616 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 Problem 16666433 Retinal detachment, right (H33.21) Active confirmed OP'D. Problem 75540631 Pseudophakia of right eye (Z96.1) Active confirmed Problem 288033152 MG, ocular (myasthenia gravis) (G70.00) Active confirmed DOING WELL. SAME TX. ARRANGE FOR F/U IN [facility]). Problem 34605746 Pseudophakia, right eye (Z96.1) Active confirmed Problem Myasthenic crisis (50240507) Myasthenic crisis (G70.01) Active confirmed Plan Of Treatment No Information Insurance Providers Payer Name Payer Address Payer Phone Subscriber Number Group Number Insured Name Patient Relationship to Insured Coverage Start Date Coverage End Date [place] [address] [place] [address] [id number] Tommie Ankur Self - patient is the insured [facility] [address] [place] [address] [phone] [id number] PLAN F Ankur Reilly Self - patient is the insured Medical (General) History Medical History History ICD Code Myasthenia gravis G70.00 Malignant neoplasm of urinary bladder, u nspecified site C67.9 HTN (hypertension) I10 HLD (hyperlipidemia) E78.5 Morbid obesity E66.01 JAMISON (obstructive sleep apnea) G47.33 History of pulmonary embolism Z86.711 Hospitalized 32 days in April 2023 f or myasthenia gravis Surgical History Surgery Date(Month/Year) Cystoscopy, bladder biopsy 09/14/23 Cardiac Catheterization cataract removal appendectomy Cystoscopy, TURBT 06/14/22/& 06/28/22, 08/30/22 Bladder tumor removal 03/03/22 Bladder biopsy 01/13/22 VERTEBAE IN NECK REPAIRED @ 2,3,4,5 2015 Hospitalization History Reason Date(Month/Year) Myasthenic Crisis with acute respiratory failure[facility] 05/09/2023
--- OUTSIDE RECORDS SUMMARY | 2025-02-24 12:54 | XMS_ITS | Encounter Summary ---
Author Organization [facility] Address [address] [facility] [place] [address] Care Team Providers Care Senior Risk Analyst Name Role Phone Beni Nguyen MD Primary Care Provider [phone] Beni Nguyen MD Unavailable [phone] Esther Connolly RN Unavailable [phone] Anastasia Rayo LPN Unavailable Encounter Details Date Type Department Care Team (Late st Contact Info) Description 07/30/2024 Abstract [facility] 112 [facility] 110 [place] [address] Beni Nguyen MD 112 [facility] 110 [place], [place] [address] Social History Tobacco Use Types Packs/Day Years [...] Recorded Patient Health Questionnaire-2 Score 0 10/05/2023 [facility] of [facility]at [...] CI PODIATRY [address] [facility] 120 [place] [address] Real Og DPM 3006 [facility] 5 [place] [address] documented as of this encounter Visit Diagnoses Not on filedocumented in this encounter Care Teams Senior Risk Analyst Relationship Specialty Start Date End Date Beni Nguyen MD [address] [facility] 110 [place] [address] PCP - General Internal Medicine 01/02/23 Beni Nguyen MD [address] [facility] 110 [place] [address] PCP - ACO Reach 01/12/23 Esther Connolly, RN [address] [place] [address] Clinical Advocate Family Medicine 09/27/24 11/08/24 Anastasia Rayo LPN [address] [facility] 110 [place] [address] 11/08/24 documented as of this encounter
--- OUTSIDE RECORDS SUMMARY | 2025-02-24 12:54 | XMS_ITS | Encounter Summary ---
Author Organization [facility] Address [address] [facility] [place] [address] Care Team Providers Care Poultry Inspector Name Role Phone Beni Nguyen MD Primary Care Provider [phone] Beni Nguyen MD Unavailable [phone] Esther Connolly RN Unavailable [phone] Anastasia Rayo LPN Unavailable Encounter Details Date Type Department Care Team (Late st Contact Info) Description 07/26/2024 Abstract [facility] 112 [facility] 110 [place] [address] Beni Nguyen MD 112 [facility] 110 [place], [place] [address] Social History Tobacco Use Types Packs/Day Years [...] Recorded Patient Health Questionnaire-2 Score 0 10/05/2023 [facility] of Occupat ional Health - Occupational [...] Visit [facility] PODIATRY 112 [facility] [facility] 120 [place] [address] Real Og DPM 3[address] [facility] 5 [place] [address] documented as of this encounter Visit Diagnoses Not on filedocumented in this encounter Care Teams Poultry Inspector Relationship Specialty Start Date End Date Beni Nguyen MD [address] [facility] 110 [place] [address] PCP - General Internal Medicine 01/02/23 Beni Nguyen MD [address] [facility] 110 [place] [address] PCP - ACO Reach 01/12/23 Esther Connolly, RN [address] [place] [address] Clinical [facility] Family [facility] 09/27/24 11/08/24 Anastasia Rayo LPN [address] [facility] 110 [place] [address] 11/08/24 documented as of this encounter
--- OUTSIDE RECORDS SUMMARY | 2025-02-24 12:54 | XMS_ITS | Encounter Summary ---
Author Organization [facility] Address [address] [place] [address] Care Team Providers Care Licensed Mortician Name Role Phone Beni Nguyen MD Primary Care Provider [phone] Beni Nguyen MD Unavailable [phone] Esther Connolly RN Unavailable Anastasia Rayo LPN Unavailable Encounter Details Date Type Department Care Team (Late st Contact Info) Description 06/20/2024 Abstract [facility] 112 [facility] 110 [place] [address] Beni Nguyen MD 112 [facility] 110 [place], [place] [address] Social History Tobacco Use Types Packs/Day Years [...] How often do you attend chur or taoism services? Never 03/17/2023 Do you [...] [facility] PODIATRY 112 [facility] [facility] 120 [place] [address] Real Og DPM 3006 [facility] 5 [place] [address] documented as of this encounter Visit Diagnoses Not on filedocumented in this encounter Care Teams Licensed Mortician Relationship Specialty Start Date End Date Beni Nguyen MD [address] [facility] 110 [place] [address] PCP - General Internal Medicine 01/02/23 Beni Nguyen MD [address] [facility] 110 [place] [address] PCP - ACO Reach 01/12/23 Esther Connolly, RN [address] [place] [address] Clinical Advocate Family Medicine 09/27/24 11/08/24 Anastasia Rayo LPN [address] [facility] 110 [place] [address] 11/08/24 documented as of this encounter
--- OUTSIDE RECORDS SUMMARY | 2025-02-24 12:54 | XMS_ITS | Encounter Summary ---
Author Organization [facility] Address [address] [facility] [place] [address] Care Team Providers Care Sexer Name Role Phone Beni Nguyen MD Primary Care Provider [phone] Beni Nguyen MD Unavailable [phone] Esther Connolly RN Unavailable [phone] Anastasia Rayo LPN Unavailable Encounter Details Date Type Department Care Team (Late st Contact Info) Description 07/15/2024 Abstract [facility] 112 [facility] 110 [place] [address] Beni Nguyen MD 112 [facility] 110 [place], [place] [address] Social History Tobacco Use Types Packs/Day Years [...] How often do you attend chur or episcopalian services? Never 03/17/2023 Do you [...] Procedure Visit [facility] PODIATRY 112 [address] [facility] 120 [place] [address] Real Og DPM 3006 [facility] 5 [place] [address] documented as of this encounter Visit Diagnoses Not on filedocumented in this encounter Care Teams Sexer Relationship Specialty Start Date End Date Beni Nguyen MD [address] [facility] 110 [place] [address] PCP - General Internal Medicine 01/02/23 Beni Nguyen MD [address] [facility] 110 [place] [address] PCP - ACO Reach 01/12/23 Esther Connolly, RN [address] [place] [address] Clinical Advocate Family Medicine 09/27/24 11/08/24 Anastasia Rayo LPN [address] [facility] 110 [place] [address] 11/08/24 documented as of this encounter
--- OUTSIDE RECORDS SUMMARY | 2025-02-24 12:54 | XMS_ITS | Encounter Summary ---
Author Organization [facility] Address [address] [facility] [place] [address] Care Team Providers Care Procurement Consultant Name Role Phone Beni Nguyen MD Primary Care Provider [phone] Beni Nguyen MD Unavailable [phone] Esther Connolly RN Unavailable Anastasia Rayo LPN Unavailable Encounter Details Date Type Department Care Team (Late st Contact Info) Description 07/15/2024 Abstract [facility] 112 [facility] 110 [place] [address] Beni Nguyen MD 112 [facility] 110 [place], [place] [address] Social History Tobacco Use Types Packs/Day Years [...] How often do you attend chur or religion services? Never 03/17/2023 Do you [...] Upcoming Encounters Date Type Department Care Team ([facility] Contact Info) Description 04/10/2025 3:10 PM EDT Procedure Visit [facility]OD[facility] [address] [facility] 120 [place] [address] Real Og DPM 3006 [facility] 5 [place] [address] documented as of this encounter Visit Diagnoses Not on filedocumented in this encounter Care Teams Procurement Consultant Relationship Specialty Start Date End Date Beni Nguyen MD [address] [facility] 110 [place] [address] PCP - General Internal Medicine 01/02/23 Beni Nguyen MD [address] [facility] 110 [place] [address] PCP - ACO Reach 01/12/23 Esther Connolly, RN [address] [place] [address] Clinical Advocate Family Medicine 09/27/24 11/08/24 Anastasia Rayo LPN [address] [facility] 110 [place] [address] 11/08/24 documented as of this encounter
--- OUTSIDE RECORDS SUMMARY | 2025-02-24 12:55 | XMS_ITS | Encounter Summary ---
Author Organization [facility] Address [address] [facility] [place] [address] Care Team Providers Care Billboard Installer Name Role Phone Beni Nguyen MD Primary Care Provider [phone] Beni Nguyen MD Unavailable [phone] Esther Connolly RN Unavailable [phone] Anastasia Rayo LPN Unavailable Encounter Details Date Type Department Care Team (Late st Contact Info) Description 08/01/2024 Abstract [facility] 112 [facility] 110 [place] [address] Beni Nguyen MD 112 [facility] 110 [place], [place] [address] Social History Tobacco Use Types Packs/Day Years [...] Recorded Patient Health Questionnaire-2 Score 0 10/05/2023 [facility] of Occupat ional Health - Occupational [...] Procedure Visit [facility] PODIATRY 112 [facility] 120 [place] [address] Real Og DPM 3006 [facility] 5 [place] [address] documented as of this encounter Visit Diagnoses Not on filedocumented in this encounter Care Teams Billboard Installer Relationship Specialty Start Date End Date Beni Nguyen MD [address] [facility] 110 [place] [address] PCP - General Internal Medicine 01/02/23 Beni Nugyen MD [address] [facility] 110 [place] [address] PCP - ACO Reach 01/12/23 Esther Connolly, RN [address] [place] [address] Clinical Advocate Family Medicine 09/27/24 11/08/24 Anastasia Rayo LPN 112 [place] [facility] 110 [place] [address] 11/08/24 documented as of this encounter
--- OUTSIDE RECORDS SUMMARY | 2025-02-24 12:55 | XMS_ITS | Encounter Summary ---
Author Organization [facility] Address [address] [facility] [facility] [place] [address] Care Team Providers Care Director Motion Picture Name Role Phone Beni Nguyen MD Primary Care Provider [phone] Beni Nguyen MD Unavailable [phone] Esther Connolly RN Unavailable Anastasia Rayo LPN Unavailable Encounter Details Date Type Department Care Team (Late st Contact Info) Description 09/11/2024 Abstract [facility] 112 [facility] 110 [place] [address] Beni Nguyen MD 112 [facility] 110 [place], [place] [address] Social History Tobacco Use Types Packs/Day Years [...] How often do you attend chur or baptist services? Never 03/17/2023 Do you [...] Procedure Visit [facility] PODIATRY [address] [facility] 120 [place] [address] Real Og DPM 3006 [facility] 5 [place] [address] documented as of this encounter Visit Diagnoses Not on filedocumented in this encounter Care Teams Director Motion Picture Relationship Specialty Start Date End Date Beni Nguyen MD [address] [facility] 110 [place] [address] PCP - General Internal Medicine 01/02/23 Beni Nguyen MD [address] [facility] 110 [place] [address] PCP - ACO Reach 01/12/23 Esther Connolly, RN [address] [place] [address] Clinical [facility]ocate Family Medicine 09/27/24 11/08/24 Anastasia Rayo LPN 112 [facility] 110 [place] [address] 11/08/24 documented as of this encounter
--- OUTSIDE RECORDS SUMMARY | 2025-02-24 12:55 | XMS_ITS | Encounter Summary ---
Author Organization [facility] Address [address] [place] [address] Care Team Providers Care Ethylbenzene Oxidizer Name Role Phone Beni Nguyen MD Primary Care Provider Beni Nguyen MD Unavailable [phone] Esther Connolly RN Unavailable Anastasia Rayo LPN Unavailable Encounter Details Date Type Department Care Team (Late st Contact Info) Description 03/14/2023 Orders Only [facility] [address] [facility] 110 [place] [address] Leela Cherry, [employer] [address] [facility] 110 [place], [place] [address] Social History Tobacco Use Types Packs/Day Years [...] often do you attend chur ch or adventism services? Never 03/17/2023 Do you [...] 112 [facility] 120 [place] [address] Real Og DPM 3006 [facility] 5 [place] [address] documented as of this encounter Procedures Procedure Name Priority Date/Time Associated Diagnosis Comments HOME SLEEP TEST Routine 03/10/2023 9:21 AM EDT documented in this encounter Results * Home sleep test (03/10/2023 9:21 AM EDT) Leela Cherry [facility] ORDERABLES Julianna l Result documented in this encounter Visit Diagnoses Not on filedocumented in this encounter Care Teams Ethylbenzene Oxidizer Relationship Specialty Start Date End Date Beni Nguyen MD [address] [address] PCP - General Internal Medicine 01/02/23 Beni Nguyen MD [address] [address] PCP - ACO Reach 01/12/23 Esther Connolly, HEATHER [address] [place] [address] Clinical [facility] 09/27/24 11/08/24 Anastasia Rayo LPN [address] [address] 11/08/24 documented as of this encounter
--- OUTSIDE RECORDS SUMMARY | 2025-02-24 12:55 | XMS_ITS | Encounter Summary ---
Author Organization [facility] Address [address] [facility] [place] [address] Care Team Providers Care New Car Sales Manager Name Role Phone Beni Nguyen MD Primary Care Provider [phone] Beni Nguyen MD Unavailable [phone] Esther Connolly RN Unavailable Anastasia Rayo LPN Unavailable Encounter Details Date Type Department Care Team (Late st Contact Info) Description 09/19/2024 Abstract [facility] 112 [facility] 110 [place] [address] Beni Nguyen MD 112 [facility] 110 [place], [place] [address] Social History Tobacco Use Types Packs/Day Years [...] Visit [facility] PODIATRY 112 [address] [facility] 120 [place] [address] Real Og DPM 3006 [facility] 5 [place] [address] documented as of this encounter Visit Diagnoses Not on filedocumented in this encounter Care Teams New Car Sales Manager Relationship Specialty Start Date End Date Beni Nguyen MD [address] [facility] 110 [place] [address] PCP - General Internal Medicine 01/02/23 Beni Nguyen MD [address] [facility] 110 [place] [address] PCP - ACO Reach 01/12/23 Esther Connolly, RN [address] [place] [address] Clinical [facility] Family [facility] 09/27/24 11/08/24 Anastasia Rayo LPN [address] [facility] 110 [place] [address] 11/08/24 documented as of this encounter
--- OUTSIDE RECORDS SUMMARY | 2025-02-24 12:55 | XMS_ITS | Encounter Summary ---
Author Organization [facility] Address [address] [facility] [place] [address] Care Team Providers Care Lathe Machine Operator Name Role Phone Beni Nguyen MD Primary Care Provider [phone] Beni Nguyen MD Unavailable [phone] Esther Connolly RN Unavailable [phone] Anastasia Rayo LPN Unavailable Encounter Details Date Type Department Care Team (Late st Contact Info) Description 08/28/2024 Abstract [facility] 112 [facility] 110 [place] [address] Beni Nguyen MD 112 [facility] 110 [place], [place] [address] Social History Tobacco Use Types Packs/Day Years [...] Recorded Patient Health Questionnaire-2 Score 0 10/05/2023 [facility] of Occupat ional Health - [...] Encounters Date Type Department Care Team ([facility] Contact Info) Description 04/10/2025 3:10 PM EDT Procedure Visit [facility] PODIATRY [address] [facility] 120 [place] [address] Real Og DPM 3006 [facility] 5 [place] [address] documented as of this encounter Visit Diagnoses Not on filedocumented in this encounter Care Teams Lathe Machine Operator Relationship Specialty Start Date End Date Beni Nguyen MD [address] [facility] 110 [place] [address] PCP - General Internal Medicine 01/02/23 Beni Nguyen MD [address] [facility] 110 [place] [address] PCP - ACO Reach 01/12/23 Esther Connolly, RN [address] [place] [address] Clinical [facility] 09/27/24 11/08/24 Anastasia Rayo LPN [address] [facility] 110 [place] [address] 11/08/24 documented as of this encounter
--- OUTSIDE RECORDS SUMMARY | 2025-02-24 12:55 | XMS_ITS | Encounter Summary ---
Author Organization [facility] Address [address] [place] [address] Care Team Providers Care Blasting Contract Man Name Role Phone Beni Nguyen MD Primary Care Provider [phone] Beni Nguyen MD Unavailable [phone] Esther Connolly RN Unavailable [phone] Anastasia Rayo LPN Unavailable Encounter Details Date Type Department Care Team (Late st Contact Info) Description 09/17/2024 Abstract [facility] 112 [facility] 110 [place] [address] Beni Nguyen MD 112 [facility] 110 [place], [place] [id number] Social History Tobacco Use Types Packs/Day Years [...] Date Type Department Care Team ([facility] Contact Info) Description 04/10/2025 3:10 PM EDT Procedure Visit [facility] PODIATRY 112 [address] [facility] 120 [place] [address] Real Og DPM 3006 [facility] 5 [place] [address] documented as of this encounter Visit Diagnoses Not on filedocumented in this encounter Care Teams Blasting Contract Man Relationship Specialty Start Date End Date Beni Nguyen MD [address] [facility] 110 [place] [address] PCP - General Internal Medicine 01/02/23 Beni Nguyen MD [address] [facility] 110 [place] [address] PCP - ACO Reach 01/12/23 Esther Connolly, RN [address] [place] [address] Clinical [facility]ocate Family [facility] 09/27/24 11/08/24 Anastasia Rayo LPN 112 [facility] 110 [place] [address] 11/08/24 documented as of this encounter
--- OUTSIDE RECORDS SUMMARY | 2025-02-24 12:55 | XMS_ITS | Encounter Summary ---
Author Organization [facility] Address [address] [place] [address] Care Team Providers Care Oyster Worker Name Role Phone Beni Nguyen MD Primary Care Provider [phone] Beni Nguyen MD Unavailable [phone] Esther Connolly RN Unavailable Anastasia Rayo LPN Unavailable Encounter Details Date Type Department Care Team (Late st Contact Info) Description 09/16/2024 Abstract [facility] 112 [facility] 110 [place] [address] Beni Nguyen MD 112 [facility] 110 [place], [place] [address] Social History Tobacco Use Types Packs/Day Years [...] How often do you attend chur or jewish services? Never 03/17/2023 Do you [...] Health Questionnaire-2 Score 0 10/05/2023 [facility] of Occupat [...] Upcoming Encounters Date Type Department Care Team ([facility] Contact Info) Description 04/10/2025 3:10 PM EDT Procedure Visit [facility] PODIATRY 112 [address] [facility] 120 [place] [address] Real Og DPM 3006 [facility] 5 [place] [address] documented as of this encounter Visit Diagnoses Not on filedocumented in this encounter Care Teams Oyster Worker Relationship Specialty Start Date End Date Beni Nguyen MD [address] [facility] 110 [place] [address] PCP - General Internal Medicine 01/02/23 Beni Nguyen MD [address] [facility] 110 [place] [address] PCP - ACO Reach 01/12/23 Esther Connolly, RN [address] [place] [address] Clinical Advocate Family Medicine 09/27/24 11/08/24 Anastasia Rayo LPN [address] [facility] 110 [place] [address] 11/08/24 documented as of this encounter
--- OUTSIDE RECORDS SUMMARY | 2025-02-24 12:55 | XMS_ITS | Encounter Summary ---
Author Organization [facility] Address [address] [place] [address] Care Team Providers Care Field Education Coordinator Name Role Phone Beni Nguyen MD Primary Care Provider [phone] Beni Nguyen MD Unavailable [phone] Esther Connolly RN Unavailable Anastasia Rayo LPN Unavailable Encounter Details Date Type Department Care Team (Late st Contact Info) Description 10/26/2023 Abstract [facility] 112 [address] [facility] 110 [place] [address] Beni Nguyen MD 112 [facility] 110 [place], [place] [id number] Social History Tobacco Use Types Packs/Day Years [...] 10/05/2023 [facility] Questionnaire Answer Date [...] Visit [facility] [address] [facility] 120 [place] [address] Real Og DPM 3006 [facility] 5 [place] [address] documented as of this encounter Visit Diagnoses Not on filedocumented in this encounter Care Teams Field Education Coordinator Relationship Specialty Start Date End Date Beni Nguyen MD [address] [facility] 110 [place] [address] PCP - General Internal Medicine 01/02/23 Beni Nguyen MD [address] [facility] 110 [place] [address] PCP - ACO Reach 01/12/23 Esther Connolly, RN [address] [place] [address] Clinical Advocate Family Medicine 09/27/24 11/08/24 Anastasia Rayo LPN 112 [facility] 110 [place] [address] 11/08/24 documented as of this encounter
--- OUTSIDE RECORDS SUMMARY | 2025-02-24 12:55 | XMS_ITS | Encounter Summary ---
Author Organization [facility] Address [address] [place] [address] Care Team Providers Care Clay Artisan Name Role Phone Beni Nguyen MD Primary Care Provider [phone] Beni Nguyen MD Unavailable [phone] Esther Connolly RN Unavailable [phone] Anastasia Rayo LPN Unavailable Encounter Details Date Type Department Care Team (Late st Contact Info) Description 05/10/2023 Orders Only [facility] [address] [facility] 110 [place] [address] A, Unknown Practice [address] [place] [id number] Social History Tobacco Use Types Packs/Day Years [...] ([facility] st Contact Info) Description 04/10/2025 3:10 PM EDT Procedure Visit [facility] PODIATRY 112 [facility] 120 [place] [address] Real Og DPM 3006 [facility] 5 [place] [address] documented as of this encounter Procedures Procedure [...] on filedocumented in this encounter Care Teams Clay Artisan Relationship Specialty Start Date End Date Beni Nguyen MD [address] [facility] 110 [place] [address] PCP - General Internal Medicine 01/02/23 Beni Nguyen MD [address] [facility] 110 [place] [address] PCP - ACO Reach 01/12/23 Esther Connolly, RN [address] [place] [address] Clinical Advocate Family Medicine 09/27/24 11/08/24 Anastasia Rayo LPN [address] [facility] 110 [place] [address] 11/08/24 documented as of this encounter
--- OUTSIDE RECORDS SUMMARY | 2025-02-24 12:55 | XMS_ITS | Encounter Summary ---
Author Organization [facility] Address [address] [place] [place] [address] Care Team Providers Care Mixed Crop Farmer Name Role Phone Beni Nguyen MD Primary Care Provider [phone] Beni Nguyen MD Unavailable [phone] Esther Connolly RN Unavailable Anastasia Rayo LPN Unavailable Encounter Details Date Type Department Care Team (Late st Contact Info) Description 09/11/2024 Abstract [facility] 112 [facility] 110 [place] [address] Beni Nguyen MD 112 [facility] 110 [place], [place] [phone] Social History Tobacco Use Types Packs/Day Years [...] PODIATRY 112 [address] [facility] 120 [place] [address] Real Og DPM 3006 [facility] 5 [place] [address] documented as of this encounter Visit Diagnoses Not on filedocumented in this encounter Care Teams Mixed Crop Farmer Relationship Specialty Start Date End Date Beni Nguyen MD [address] [facility] 110 [place] [address] PCP - General Internal Medicine 01/02/23 Beni Nguyen MD [address] [facility] 110 [place] [address] PCP - ACO Reach 01/12/23 Esther Connolly, RN [address] [place] [address] Clinical Advocate Family Medicine 09/27/24 11/08/24 Anastasia Rayo LPN [address] [facility] 110 [place] [address] 11/08/24 documented as of this encounter
--- OUTSIDE RECORDS SUMMARY | 2025-02-24 12:55 | XMS_ITS | Encounter Summary ---
Author Organization [facility] Address [address] [place] [address] Care Team Providers Care Saloon Keeper Name Role Phone Beni Nguyen MD Primary Care Provider [phone] Beni Nguyen MD Unavailable [phone] Esther Connolly RN Unavailable [phone] Anastasia Rayo LPN Unavailable Encounter Details Date Type Department Care Team (Late st Contact Info) Description 09/11/2024 Abstract [facility] 112 [facility] 110 [place] [address] Beni Nguyen MD 112 [facility] 110 [place], [place] [phone] Social History Tobacco Use Types Packs/Day Years [...] Type Department Care Team ([facility] Contact Info) Description 04/10/2025 3:10 PM EDT Procedure Visit [facility] PODIATRY 112 [address] [facility] 120 [place] [address] Real Og DPM 3006 [facility] 5 [place] [address] documented as of this encounter Visit Diagnoses Not on filedocumented in this encounter Care Teams Saloon Keeper Relationship Specialty Start Date End Date Beni Nguyen MD [address] [facility] 110 [place] [address] PCP - General Internal Medicine 01/02/23 Beni Nguyen MD [address] [facility] 110 [place] [address] PCP - ACO Reach 01/12/23 Esther Connolly, RN [address] [place] [address] Clinical Advocate Family [facility] 09/27/24 11/08/24 Anastasia Rayo LPN 112 [facility] 110 [place] [address] 11/08/24 documented as of this encounter
--- OUTSIDE RECORDS SUMMARY | 2025-02-24 12:55 | XMS_ITS | Encounter Summary ---
Author Organization [facility] Address [address] [place] [address] Care Team Providers Care Scenario Writer Name Role Phone Beni Nguyen MD Primary Care Provider [phone] Beni Nguyen MD Unavailable [phone] Esther Connolly RN Unavailable [phone] Anastasia Rayo LPN Unavailable Encounter Details Date Type Department Care Team (Late st Contact Info) Description 09/24/2024 Abstract [facility] 112 [facility] 110 [place] [address] Beni Nguyen MD 112 [facility] 110 [place], [place] [phone] Social History Tobacco Use Types Packs/Day Years [...] Care Team ([facility] Contact Info) Description 04/10/2025 3:10 PM EDT Procedure Visit [facility] PODIATRY 112 [address] [facility] 120 [place] [address] Real Og DPM 3006 [facility] 5 [place] [address] documented as of this encounter Visit Diagnoses Not on filedocumented in this encounter Care Teams Scenario Writer Relationship Specialty Start Date End Date Beni Nguyen MD [address] [facility] 110 [place] [address] PCP - General Internal Medicine 01/02/23 Beni Nguyen MD [address] [facility] 110 [place] [address] PCP - ACO Reach 01/12/23 Esther Connolly, RN [address] [place] [address] Clinical Advocate Family Medicine 09/27/24 11/08/24 Anastasia Rayo LPN [address] [facility] 110 [place] [address] 11/08/24 documented as of this encounter
--- OUTSIDE RECORDS SUMMARY | 2025-02-24 12:55 | XMS_ITS | Encounter Summary ---
Author Organization [facility] Address [address] [facility] [place] [address] Care Team Providers Care Prototype Engineer Manager Name Role Phone Beni Nguyen MD Primary Care Provider [phone] Beni Nguyen MD Unavailable [phone] Esther Connolly RN Unavailable Anastasia Rayo LPN Unavailable Encounter Details Date Type Department Care Team (Late st Contact Info) Description 09/17/2024 Abstract [facility] 112 [facility] 110 [place] [address] Beni Nguyen MD 112 [facility] 110 [place], [place] [address] Social History Tobacco Use Types Packs/Day Years [...] How often do you attend chur or presybeterian services? Never 03/17/2023 Do you [...] Procedure Visit [facility] PODIATRY 112 [address] [facility] 120 [place] [address] Real Og DPM 3006 [facility] 5 [place] [address] documented as of this encounter Visit Diagnoses Not on filedocumented in this encounter Care Teams Prototype Engineer Manager Relationship Specialty Start Date End Date Beni Nguyen MD [address] [facility] 110 [place] [address] PCP - General Internal Medicine 01/02/23 Beni Nguyen MD [address] [facility] 110 [place] [address] PCP - ACO Reach 01/12/23 Esther Connolly, RN [address] [place] [address] Clinical Advocate Family Medicine 09/27/24 11/08/24 Anastasia Rayo LPN [address] [facility] 110 [place] [address] 11/08/24 documented as of this encounter
--- OUTSIDE RECORDS SUMMARY | 2025-02-24 12:55 | XMS_ITS | Clinical Summary ---
Author Organization [facility] Address [address] [place], [place] [address] Care Team Providers Care Field Automobile Adjuster Name Role Phone Patrick ARMENTA MD, Beni Hamlin Primary Care Provider [phone] Allergies No known active allergies Medications pyridostigmine [...] furosemide (LASIX) 20 mg tablet 03/22/2022 Active Bruni-3 Fatty Acids, FISH OIL, 360-1,200 mg cap [...] - 1-dose 75+ series) 2018 Covid-19 Vaccine (2023-2 5 season) 2024 05/25/2021, 11/10/2020, 10/19/2020 Advance Directive Discussion 08/21/2024 Influenza Vaccine (#1) 2025 1, 05/19/2021, 05/06/2020, Additional history exists Diabetes Screening 04/27/2025 04/27/2022, 1 09/07/2020, 07/29/2020, Additional history exists Pneumococcal Vaccine: 50+ Completed 2017, 10/26/2015, 10/19/2004 Insurance MEDICARE [id number] Care Teams Field Automobile Adjuster Relationship Specialty Start Date End Date Beni Nguyen II, MD [address] [place] [address] PCP - General Internal Medicine 12/05/16
--- OUTSIDE RECORDS SUMMARY | 2025-02-24 12:55 | XMS_ITS | Encounter Summary ---
Author Organization [facility] Address [address] [place] [address] Care Team Providers Care Small Business Director Name Role Phone Beni Nguyen MD Primary Care Provider Beni Nguyen MD Unavailable [phone] Esther Connolly RN Unavailable Anastasia Rayo LPN Unavailable Encounter Details Date Type Department Care Team (Late Contact Info) Description 12/23/2022 Abstract [facility] 112 [facility] 110 [place] [address] Beni Nguyen MD 112 [facility] 110 [place], [place] [address] Social History Tobacco Use Types Packs/Day Years [...] CI PODIATRY 112 [facility] 120 [place] [address] Real Og, DPM 3006 [facility] 5 [place] [address] documented as of this encounter Visit Diagnoses Not on filedocumented in this encounter Care Teams Small Business Director Relationship Specialty Start Date End Date Beni Nguyen MD [address] [facility] 110 [place] [address] PCP - General Internal Medicine 01/02/23 Beni Nguyen MD [address] [facility] 110 [place] [address] PCP - ACO Reach 01/12/23 Esther Connolly, RN [address] [place] [address] Clinical Advocate Family Medicine 09/27/24 11/08/24 Anastasia Rayo LPN [address] [facility] 110 [place] [address] 11/08/24 documented as of this encounter
--- OUTSIDE RECORDS SUMMARY | 2025-02-24 12:55 | XMS_ITS | Encounter Summary ---
Author Organization [facility] Address [address] [place] [address] Care Team Providers Care Equipment Man Name Role Phone Beni Nguyen MD Primary Care Provider [phone] Beni Nguyen MD Unavailable [phone] Esther Connolly RN Unavailable [phone] Anastasia Rayo LPN Unavailable Encounter Details Date Type Department Care Team (Late st Contact Info) Description 03/28/2023 Abstract [facility] FM 112 [address] [facility] 110 [place] [address] Beni Nguyen MD 112 [facility] 110 [place], [place] [address] Social History Tobacco Use Types Packs/Day Years [...] often do you attend chur ch or buddhist services? Never 03/17/2023 Do you [...] EDT Procedure Visit [facility] PODIATRY 112 [facility] 120 [place] [address] Real Og, DPM 3006 [facility] 5 [place] [address] documented as of this encounter Visit Diagnoses Not on filedocumented in this encounter Care Teams Equipment Man Relationship Specialty Start Date End Date Beni Nguyen MD [address] [facility] 110 [place] [address] PCP - General Internal Medicine 01/02/23 Beni Nguyen MD 112 [facility] 110 [place] [address] PCP - ACO Reach 01/12/23 Esther Connolly, HEATHER [address] [place] [address] Clinical Advocate Family Medicine 09/27/24 11/08/24 Anastasia Rayo LPN 112 [place] [address] 11/08/24 documented as of this encounter
--- OUTSIDE RECORDS SUMMARY | 2025-02-24 12:55 | XMS_ITS | Encounter Summary ---
Author Organization [facility] Address [address] [place] [address] Care Team Providers Care Compressed Gas Plant Worker Name Role Phone Patrick ARMENTA MD, Beni Hamlin Primary Care Provider [phone] Source Comments In the event this information is protected by the Federal Confidentiality of Alcohol and Drug AbusePatient Records regulations: The Federal rules restrict any use of the information to criminally investigate or prosecute any alcohol or drug abuse patient.[facility] Encounter Details Date Type Department Care Team (Late st Contact Info) Description 2023 Lab Requisition [facility] [address] [place] [address] Ivan Barnhart MD [address] [place] [address] Person encountering health services to consult on [...] EST) Case Report Surgical Pathology Report Case: [id number] Authorizing Provider: Ivan Barnhart MD Collected: 2023 09:46 AM Ordering Location: [facility] Received: 2023 09:46 AM [facility] Pathologist: Olivier Mina MD Specimen: SLIDE(S), 2 SLIDES [id number] 2023 12:15 PM EST [facility] FINAL DIAGNOSIS [facility]; [place], [place] ([id number], 09/14/23) A. Urinary bladder, biopsy: - Benign nephrogenic adenoma. JKM 2023 2023 12:15 PM EST [facility] at 1215 EST Diagnosis Comment Thank you for allowing me to review this bladder lesion from an 78-year-old man. 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 2023 12:15 PM EST [facility] Clinical History CONSULT REQUESTED 2023 12:15 PM EST [facility] Performing Lab Diagnostic interpretation performed at [facility], [address] [place] [address]# [id number] Lockstitch Tunnel Elastic Operator: Jaylan Mcfadden M.D. 2023 12:15 PM EST [facility] Blocks or Slides MICROSCOPE SLIDE / Unknown 2023 9:46 AM EST 2023 9:46 AM EST us Ivan Barnhart MD SURGICAL PATHOLOGY Final Result [facility] [address] [place] [address] [address] [place] [address], documented in this encounter Visit Diagnoses Diagnosis Person encountering health services to consult on behalf of another person Other person consulting on behalf of another person documented in this encounter Care Teams Compressed Gas Plant Worker Relationship Specialty Start Date End Date Beni Nguyen II, MD [address] [facility] 110 [place] [id number] PCP - General Internal Medicine 12/05/16 documented as of this encounter
--- OUTSIDE RECORDS SUMMARY | 2025-02-24 12:55 | XMS_ITS | Encounter Summary ---
Author Organization [facility] Address [address] [facility] [place] [address] Care Team Providers Care Catalogue Illustrator Name Role Phone Beni Nguyen MD Primary Care Provider [phone] Beni Nguyen MD Unavailable Esther Connolly RN Unavailable Anastasia Rayo LPN Unavailable Encounter Details Date Type Department Care Team (Late st Contact Info) Description 10/09/2024 Abstract [facility] FM 112 [facility] 110 [place] [address] Beni Nguyen MD 112 [facility] 110 [place], [place] [id number] Social History Tobacco Use Types Packs/Day Years [...] Department Care Team ([facility] Contact Info) Description 04/10/2025 3:10 PM EDT Procedure Visit [facility] PODIATRY [address] [facility] 120 [place] [address] Real Og DPM 3006 [facility] 5 [place] [address] documented as of this encounter Visit Diagnoses Not on filedocumented in this encounter Care Teams Catalogue Illustrator Relationship Specialty Start Date End Date Beni Nguyen MD [address] [facility] 110 [place] [address] PCP - General Internal Medicine 01/02/23 Beni Nguyen MD [address] [facility] 110 [place] [address] PCP - ACO Reach 01/12/23 Esther Connolly, RN [address] [place] [address] Clinical Advocate Family Medicine 09/27/24 11/08/24 Anastasia Rayo LPN [address] [facility] 110 [place] [address] 11/08/24 documented as of this encounter
--- OUTSIDE RECORDS SUMMARY | 2025-02-24 12:55 | XMS_ITS | Encounter Summary ---
Author Organization [facility] Address [address] [facility] [place] [address] Care Team Providers Care Ceramic Tile Installer Name Role Phone Beni Nguyen MD Primary Care Provider [phone] Beni Nguyen MD Unavailable [phone] Esther Connolly RN Unavailable Anastasia Rayo LPN Unavailable Encounter Details Date Type Department Care Team (Late st Contact Info) Description 09/30/2024 Abstract [facility] FM 112 [facility] 110 [place] [address] Beni Nguyen MD 112 [facility] 110 [place], [place] [phone] Social History Tobacco Use Types Packs/Day Years [...] How often do you attend chur or shinto services? Never 03/17/2023 Do you [...] Upcoming Encounters Date Type Department Care Team ([facility] Contact Info) Description 04/10/2025 3:10 PM EDT Procedure Visit [facility] PODIATRY [address] [facility] 120 [place] [address] Real Og DPM 3006 [facility] 5 [place] [address] documented as of this encounter Visit Diagnoses Not on filedocumented in this encounter Care Teams Ceramic Tile Installer Relationship Specialty Start Date End Date Beni Nguyen MD [address] [facility] 110 [place] [address] PCP - General Internal Medicine 01/02/23 Beni Nguyen MD [address] [facility] 110 [place] [address] PCP - ACO Reach 01/12/23 Esther Connolly, RN [address] [place] [address] Clinical [facility] Family [facility] 09/27/24 11/08/24 Anastasia Rayo LPN [address] [place] [facility] 110 [place] [address] 11/08/24 documented as of this encounter
--- OUTSIDE RECORDS SUMMARY | 2025-02-24 12:55 | XMS_ITS | Patient Health Record ---
Author Organization [facility] Address [address] [place] [address] Care Team Providers Care Supervisor Cd Area Name Role Phone Wilton Kramer Unavailable [phone] xxDagoberto Nina Unavailable Reason For Referral Reason MARIE................. ...Please obtain authorization for left knee MRI Diagnosis 1 Pain, joint, knee, l eft (M25.562) Referral Organization [facility] Referring Provider First Name Wilton Referring Provider Last Name Nia Referring Provider Speciality Orthopedic Surgery [facility] Referred Address [place], [place], Procedure 1 MRI Joint Lower Ext w/o Dye ([id number]) General Notes Candida Little 024 12:37:13 PM >PER AVAILITY, PATIENT IS ACTIVE PART A AND PART B, NO AUTH REQUIRED MA NOTIFIED REF FAXED TO [facility] Kimberly 03/04/2024 01:13:24 PM >Faxed order to [facility]. Notified patient. Referral Priority Routine Problems Problem Type SNOMED Code ICD Code Onset Dates Problem Status W/U Status Risk Notes Problem [id number] Primary osteoarthritis of left knee (M17.12) Active confirmed Encounters Encounter Location Date Provider Diagnosis [facility] [address] [place] [address] 03/04/2024 Nina [facility] Pain, joint, knee, left M25.562 [facility] [address] [place] [address] [place] [address] 03/13/2024 Wilton Kramer Primary osteoarthritis of left knee M17.12 [facility] [address] [place] [address] 03/18/2024 Wilton Nia [facility] [address] [place] [address] 05/14/2024 Wilton Kramer Primary osteoarthritis of left knee M17.12 and Pain, joint, knee, left M25.562 [facility] [address] [address] 05/20/2024 Wilton Kramer Assessments Encounter Date Diagnosis [...] MRI : Knee W/O Contrast Left - 26962 Home PT 05/14/2024 [facility]- PT/OT EVAL AND TREAT 3X/WEEK FOR 6 WEEKS 03/13/2024 Insurance Providers Payer Name Payer Address Payer Phone Subscriber Number Group Number Insured Name Patient Relationship to Insured Coverage Start Date Coverage End [place] [address] [place] [address] [id number] TAURUS GARCIA Self - patient is the insured [facility] [employer] [address] [place] [address] [id number] TAURUS GARCIA Self - patient is the insured
--- NOTE | 2025-02-24 12:57 | MR_ITS ---
The [address] [address] Patient Name: TAURUS GARCIA MRN: [id number] date: 1945 Sex: M Assigned Patient Location: MRI Current Patient Location: MRI Accession/Order Number: [id number] Exam Date: 02/24/2025 19:25 Report Date: 02/24/2025 19:31 At the request of: SAUL WRIGHT NP Procedure: MR lumbar spine wo con MR lumbar spine wo con 02/24/2025 2:26 PM SIGNS AND SYMPTOMS: ^Spinal stenosis, lumbar region with neurogenic claudication PROTOCOL: Multiplanar multisequence MR images of the lumbar spine without IV contrast COMPARISON: 12/22/2023 FINDINGS: There is 5 mm of anterolisthesis of L5 upon S1. The bones are otherwise in anatomic alignment. There is preservation of vertebral body heights. There is severe disc height loss at L1-L2, L3-L4, and L4-5. There is mild disc height loss throughout otherwise. There is Modic type I endplate edema at L2-L3 and L3-L4. The marrow signal is within normal limits, otherwise. The conus terminates at the L1-L2 intervertebral disc level. No epidural or paraspinous fluid collection is appreciated. Simple cysts are noted in the renal cortices requiring no further follow-up. At T12-L1: There is a broad-based disc bulge with facet hypertrophy and ligamentum flavum thickening. There is moderate spinal canal stenosis with moderate to severe right and moderate left neural foraminal narrowing similar to the prior exam. At L1-L2: There is a circumferential disc bulge with endplate osteophyte formation. There is facet hypertrophy with ligamentum flavum thickening contributing to moderate spinal canal narrowing with severe right and mild left neural foraminal narrowing. Is mass effect on the exiting right L1 nerve roots, similar to the prior exam. At L2-L3: There is a broad-based disc bulge with facet hypertrophy and ligamentum flavum thickening. There is moderate to severe spinal canal stenosis with moderate right and mild left neural foraminal stenosis. At L3-L4: There is a circumferential disc bulge with facet hypertrophy and ligamentum flavum thickening. There is severe narrowing of the spinal canal with mass effect on the traversing nerve roots of the cauda equina. This is worse when compared to the prior exam. There is moderate to severe bilateral neural foraminal stenosis which is also slightly worse. At L4-L5: There is a circumferential disc bulge with facet hypertrophy and ligamentum flavum thickening contributing to severe narrowing of spinal canal with mass effect on the traversing nerve roots of the cauda equina. There is severe left and moderate right neural foraminal stenosis similar to the prior exam with similar mass effect on the exiting left L4 nerve roots. At L5-S1: There is a broad-based disc bulge with endplate osteophyte formation and facet hypertrophy. There is mild spinal canal stenosis with severe left neural foraminal narrowing. Is mass effect on the exiting left L5 nerve roots. MR/MR lumbar spine wo con IMPRESSION: At L3-L4: There is a circumferential disc bulge with facet hypertrophy and ligamentum flavum thickening. There is severe narrowing of the spinal canal with mass effect on the traversing nerve roots of the cauda equina. This is worse when compared to the prior exam. There is moderate to severe bilateral neural foraminal stenosis which is also slightly worse. At L4-L5: There is a circumferential disc bulge with facet hypertrophy and ligamentum flavum thickening contributing to severe narrowing of spinal canal with mass effect on the traversing nerve roots of the cauda equina. There is severe left and moderate right neural foraminal stenosis similar to the prior exam with similar mass effect on the exiting left L4 nerve roots. At L5-S1: There is a broad-based disc bulge with endplate osteophyte formation and facet hypertrophy. There is mild spinal canal stenosis with severe left neural foraminal narrowing. Is mass effect on the exiting left L5 nerve roots. Impression dictated by: Mihai Menjivar M.D. 02/24/2025 7:31 PM Dictation Location: [place] [address] Electronically authenticated by: [id number] Y Date: 02/24/2025 19:31
--- NOTE | 2025-02-24 14:21 | XR_ITS ---
[place] [id number] Patient Name: TAURUS GARCIA MRN: [id number] date: 1945 Sex: M Assigned Patient Location: MRI Current Patient Location: MRI Accession/Order Number: [id number] Exam Date: 02/24/2025 16:24 Report Date: 02/24/2025 16:27 At the request of: SAUL WRIGHT NP Procedure: XR lumbar spine 6V w bending 6 views Lumbar Spinewith bending HISTORY: Chronic low back pain. Bilateral leg weakness COMPARISON: None POSTSURGICAL CHANGES: None BONY ALIGNMENT: Scoliosis HYPERMOBILITY:No hypermobility LISTHESIS:Mild degenerative listhesis FRACTURE: None DEGENERATIVE CHANGES: Extensive multilevel spondylosis and facet degeneration SOFT TISSUES: Atherosclerosis BONY MINERALIZATION:Decreased XR/XR lumbar spine 6V w bending IMPRESSION: No hypermobility. Extensive multilevel degenerative changes. Scoliosis. Decreased bony mineralization. Impression dictated by: Aaron Mock M.D. 02/24/2025 4:27 PM Dictation Location: [facility] Electronically authenticated by: [id number] Y Date: 02/24/2025 16:27
== END 2025-02-24 12:50 | disposition home or self-care (01) ==
LOC: MRI 12:50
PROVIDERS: PCP Internal Medicine; Visit Provider Nurse Practitioner
DX: M48.062 Spinal stenosis, lumbar region with neurogenic claudication (principal); M51.369 Other intervertebral disc degeneration, lumbar region without mention of lumbar back pain or lower extremity pain; M47.816 Spondylosis without myelopathy or radiculopathy, lumbar region
CPT/HCPCS: 72114; 72148

== ENCOUNTER 2025-02-26 12:28 | Outpatient (REF) | payer MEDICARE, SELFPAY ==
[2025-02-26 13:02] LABS: Creatine Kinase 122 U/L (39-308)
== END 2025-02-26 12:29 | disposition home or self-care (01) ==
LOC: LAB 12:28
PROVIDERS: PCP Internal Medicine; Visit Provider Nurse Practitioner Family
DX: M79.10 Myalgia, unspecified site (principal)
CPT/HCPCS: 36415; 82550; 82553

== ENCOUNTER 2025-03-26 11:23 | Outpatient (OUT) | payer MEDICARE, SELFPAY ==
--- NOTE | 2025-03-26 11:46 | PM.CN ---
Consult Note: HPI Data of Consult Patient: known to practice within the last 3 years Requesting Physician: Kimberly Wright NP Primary Care Provider: KOMAL SCHAFFER Consult Narrative Reason for consult: f/u Narrative: Ankur Reilly a pleasant 79 year old male presents for evaluation of chronic low back and BLE pain secondary to lumbar stenosis with NC, lumbar spondylosis, lumbar DDD, and sacroiliitis. pt has failed to benefit from > 6 weeks of provider guided HEP/PT, heat, ice, tylenol, and is on eliquis so he cannot take NSAIDs. pain today 7-8/10 increasing to 10/10 with standing, walking, activity. utilizing gabapentin, lidocaine patches with mild relief at this time, denies side effects. recently underwent right SIJ injection with 80% improvement for 3 days. no ongoing relief. pt was evaluated by Dr Jacques who deemed pt nonsurgical due to extensive risks. cc:: CC: Kimberly Wright NP Review of Systems ROS Status of ROS 10 or more systems reviewed and unremarkable except as noted in history and below Musculoskeletal Reports: back pain, extremity pain and joint pain PFSH PFSH Medical History Myasthenia gravis ?G70.00 - Myasthenia gravis without (acute) exacerbation (ICD-10) CKD (chronic kidney disease) stage 3, GFR 30-59 ml/min ?N18.30 - Chronic kidney disease, stage 3 unspecified (ICD-10) History of pulmonary embolism ?Z86.711 - Personal history of pulmonary embolism (ICD-10) Hypertension ?I10 - Essential (primary) hypertension (ICD-10) Bladder cancer ?C67.9 - Malignant neoplasm of bladder, unspecified (ICD-10) Pulmonary embolism ?I26.99 - Other pulmonary embolism without acute cor pulmonale (ICD-10) Surgical History Previous back surgery ?Z98.890 - Other specified postprocedural states (ICD-10) History of appendectomy ?Z90.49 - Acquired absence of other specified parts of digestive tract (ICD-10) Family History Mother Family history of cancer Grandmother Family history of diabetes mellitus Father Family history of myocardial infarction Social History Within the past year, how often did you have a drink containing alcohol: monthly or less Within the past year, how many standard drinks containing alcohol did you have on a typical day: 1 or 2 Within the past year, how often did you have six or more drinks on one occasion: never Total score: 0 Score interpretation: A score less than 4 is consistent with normal alcohol consumption. 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 Known occupational exposures/hazards: No Highest level of school completed/degree received: high school graduate Are you now , , , , never or living with a partner: In a typical week, how many times do you talk on the telephone with family, friends, or neighbors: once per week How often do you get together with friends or relatives: once per week How often do you attend baptism or jew services: never Do you belong to any clubs or organizations such as baptism groups unions, [employer] or athletic groups, or school groups: no Total score: 1 Score interpretation: A score of less than or equal to 1 indicates the most socially isolated. Little interest or pleasure in doing things: not at all Feeling down, depressed, or hopeless: not at all Feel stressed/tense/nervous/anxious/difficulty sleeping: not at all Due to disability, difficulty making decisions: No Do you think of yourself as: straight/heterosexual Gender Identity: male Meds Home Medications and Allergies Home Medications ?Medication ?Instructions ?Recorded ?Confirmed ?Type apixaban 5 mg tablet (Eliquis) 5 mg PO Q12H 05/09/23 01/27/25 History furosemide 20 mg tablet 40 mg PO DAILY 05/09/23 01/27/25 History loratadine 10 mg tablet (Claritin) 10 mg PO DAILY 05/09/23 12/30/24 History multivitamin 1 tab PO DAILY 05/09/23 01/27/25 History nebivolol 10 mg tablet 10 mg PO DAILY 05/09/23 12/30/24 History omega-3 fatty acids 1,200 mg PO BID 05/09/23 01/27/25 History potassium chloride 10 mEq 20 meq PO DAILY 05/09/23 01/27/25 History tablet,extended release(part/cryst) prednisone 10 mg tablet 15 mg PO DAILY 05/09/23 01/27/25 History pyridostigmine bromide 60 mg tablet 60 mg PO Q6H 05/09/23 01/27/25 History simvastatin 40 mg tablet 40 mg PO DAILY 05/09/23 01/27/25 History gabapentin 300 mg capsule 300 mg PO Q12H 12/18/23 01/27/25 History naloxone 4 mg/actuation nasal 1 spray intranasal Q2M PRN opioid 12/28/23 01/27/25 Rx spray (Narcan) overdose #2 ea clotrimazole 1 % topical cream 1 applic topical BID 09/09/24 01/27/25 History oxycodone-acetaminophen 5 mg-325 1 tab PO DAILY PRN pain 09/09/24 01/27/25 History mg tablet (Percocet) spironolactone 25 mg tablet 25 mg PO DAILY 09/09/24 01/27/25 History baclofen 10 mg tablet mg 01/27/25 History hydralazine 50 mg tablet mg 01/27/25 History lisinopril 20 mg tablet mg 01/27/25 History gabapentin 600 mg tablet 600 mg PO BID #60 tabs 02/12/25 Rx gabapentin 600 mg tablet 600 mg PO BID #180 tabs 03/26/25 Rx Allergies Allergy/AdvReac Type Severity Reaction Status Date / Time No Known Drug Allergies Allergy Verified 01/27/25 11:44 Exam Constitutional Documenting provider has reviewed patient's vital signs: yes Common normals: no apparent distress, oriented x3, healthy appearing, alert and well nourished General appearance: cooperative Nutritional appearance: obese HENMT Common normals: normocephalic, hearing grossly normal bilaterally and moist oral mucous membranes Head and scalp: normocephalic Eye Common normals: PERRL Pupil: PERRL Neck & C-Spine Common normals: full ROM General: normal visual inspection Chest Common normals: inspection of chest normal Respiratory Common normals: normal respiratory effort, no retractions and no use of accessory muscles Back & Pelvis Lumbar spine/lower back: ROM limited, pain with ROM, lumbar spinal tenderness, paraspinal muscle tenderness and straight leg raise positive right Sacroiliac joints: SI joint(s) abnormal Other: right sij positive jorge(patricks), gaenslens, thigh thrust, compression test decreased sensation to right L3,4,5 strength 4/5 in RLE and 5/5 in LLE Neuro Common normals: oriented x3 Sensorium/orientation: alert Gait (neuro): antalgic and assistive device used (walker) Psych Common normals: mental status grossly normal, thought process normal, cooperative, affect normal, speech normal and activity/motor behavior normal Speech: normal speech Thought process: normal thought process Results Additional Findings Additional findings: If on a controlled substance or opioids, I have checked an [place] report on this patient and there are no aberrancies noted in the prescribing history.??If on a controlled substance or opioid a drug screen was completed and reviewed within the last year, and if there has not been a drug screen completed we ordered one today to monitor higher risk, state monitored pain medication use. As part of providing excellent, safe, comprehensive care, the following was completed at our patient's visit: 1. A medication reconciliation and review to ensure accurate knowledge of current/active medications, including asking our patients to inform us about any [id number] medications or herbal remedies/nutritional supplements/alternative remedies. 2. A review to specifically ensure our patients have had annual screening for screening for depression, screening for tobacco use, and screening for unhealthy alcohol use. For concerning screenings had a discussion with the patient, provided patient education, and recommended follow-up with primary care provider when appropriate. If patient noted with a risk of falling, they received education on strength, gait, and balance training to prevent future risk of falling. Portions of this note may have been carried over from the previous visit and updated as appropriate. Please note this office utilizes paper charting in addition to the electronic medical record. A list of current medications, vitals, and PMH is available there as the clinical staff outside of myself do not have access to [facility] charting during the clinic day operations. As part of providing quality comprehensive care the current medications, vitals, and PMH were reviewed in the paper chart. Assessment and Plan Assessment and Plan (1) Lumbar stenosis with neurogenic claudication: Assessment and Plan: The patient has had over 3 months of moderate to severe low back and right SIJ pain with functional impairment and inadequate response to conservative care including NSAIDS (unless there are contraindication such as concurrent blood thinners), multiple oral or topical pain medications, and home exercise program/physical therapy.? Patient has completed >6 weeks of guided home exercise program and/or formal physical therapy program without relief of their symptoms.? The Oswestry Disability Index was completed, and the patient scored a 38%.? The patient noted the following:?? moderate to severe pain with standing, walking, sitting, sleeping (2) Sacroiliitis: Assessment and Plan: ? Plan continue gabapentin 600mg BID proceed with right L3/4 L4/5 TFESI with steroid rotation to dexamethasone discussed spinal cord stimulator trial/implant, pt would be high risk but continues to endorse significant multidermatomal pain and low back pain unresponsive to numerous medications and interventional therapies. non surgical as recently evaluated by Dr Jacques f/u 2 weeks after injection
== END 2025-03-26 11:24 | disposition home or self-care (01) ==
LOC: PM 11:24
PROVIDERS: PCP Internal Medicine; Visit Provider Nurse Practitioner
DX: M48.062 Spinal stenosis, lumbar region with neurogenic claudication (principal); M46.1 Sacroiliitis, not elsewhere classified
CPT/HCPCS: G0463

== ENCOUNTER 2025-04-07 10:15 | Day surgery (SDC) | payer MEDICARE, SELFPAY ==
--- OUTSIDE RECORDS SUMMARY | 2025-04-07 10:29 | XMS_ITS | CCD ---
Author Organization [facility]iniSy[facility] Care Team Providers Care Child Neurologist Name Role Phone OLIVIA HALL Unavailable Unavailable NO FAMILY DOCTOR, NO FAMILY DOCTOR Unavailable Unavailable BALTAZAR LÓPEZ Unavailable Unavailable NO FAMILY DOCTOR, NO FAMILY DOCTOR Unavailable Unavailable KOMAL SCHAFFER Primary Care Physician AUTUMN PIMENTEL, DR YOKO Hair Consulting Unavailzuly LEYVA JR, DR YOKO Hair Admitting Unavailzuly SCHAFFER, DR SAUCEDA Primary Care Unavailable AUTUMN PIMENTEL, DR YOKO Hair Attending Unavailzuly LEYVA JR, DR YOKO Hair Admitting Unavailzuly SCHAFFER, DR SAUCEDA Primary Care Unavailable AUTUMN PIMENTEL, DR YOKO Hair Attending Unavailzuly LEYVA JR, DR YOKO Hair Consulting Unavailzuly LEYVA JR, DR YOKO Hair Admitting Unavailzuly SCHAFFER, DR SAUCEDA Primary Care Unavailable AUTUMN PIMENTEL, DR YOKO Hair Attending UnavailMEGHAN Beltran Consulting Unavailable JOSELINE PARKER Consulting Unavailable SARBJIT, DR SAUCEDA Consulting Unavailable SARBJIT, DR SAUCEDA Primary Care Unavailable SARBJIT, DR SAUCEDA Admitting Unavailable SARBJIT, DR SAUCEDA Attending Unavailable LEELA BOCANEGRA Admitting Unavailable AAMIR, DR JORDAN Gonzalez Consulting Unavailable SARBJIT, DR SAUCEDA Primary Care Unavailable LEELA BOCANEGRA Attending Unavailable LEELA BOCANEGRA Consulting Unavailable AUTUMN PIMENTEL, DR YOKO Hair Admitting Unavailzuly LEYVA JR, DR YOKO Hair Attending Unavailzuly RUTLEDGE, DR JORDAN Gonzalez Consulting Unavailable SARBJIT, DR SAUCEDA Primary Care Unavailable AUTUMN PIMENTEL, DR YOKO Hair Consulting Unavailzuly SCHAFFER, DR SAUCEDA Primary Care Unavailable MEGHAN HINDS Admitting Unavailable MEGHAN HINDS Attending Unavailable MEGHAN HINDS Consulting Unavailable Komal Schaffer II Primary Care Provider [phone] Komal Schaffer II Primary Care Provider GEOVANY Schaffer Primary Care Provider MD Ivan Barnhart Attending Provider GEOVANY Schaffer Primary Care Provider MD Ivan Barnhart Attending Provider Yoko Leyva Attending Unavailable Leyva, Yoko L Referring Unavailable Leyva, Yoko L Admitting Unavailable JIL, MASHA E Admitting Unavailable JIL, MASHA E Attending Unavailable Leyva, Yoko L Admitting Unavailable Leyva, Yoko L Attending Unavailable Leyva, Yoko L Referring Unavailable Leyva, Yoko L Attending Unavailable Leyva, Yoko L Referring Unavailable Leyva, Yoko L Attending Unavailable Leyva, Yoko L Attending Unavailable Leyva, Yoko L Attending Unavailable Leyva, Yoko L Attending Unavailable Leyva, Yoko L Attending Unavailable Leyva, Yoko L Attending Unavailable Unavailable Unavailable Komal Schaffer MD Primary Care Provider [phone] KOMAL SCHAFFER Primary Care Unavailable SANTACROCE, LORRI Consulting Unavailable VICK, ADDISON Attending Unavailable VICK, ADDISON Admitting Unavailable LE, KIM K Referring Unavailable AOLIAN PARRISH T Consulting Unavailable GEOVANY Schaffer Primary Care Provider MD Ivan Barnhart Attending Provider MD Ivan Barnhart Attending Provider [phone] MD Jarret Garza Admit Provider Pauline Canales Other Provider Unavailable DO Tonia Rice Other Provider MD Wilton Lockhart Other Provider DO Stanley Saunders Other Provider Aime ANP-BC Sabine Other Provider DO Jamel Packer Other Provider ZACH Mosqueda Other Provider MÓNICA Henning Other Provider ZACH Tamayo-DECAL MAKER-C Mookie Nichols Other Provider MD Silvestre Grover Other Provider ZACH Armstrong Other Provider MD Lexy Chappell Other Provider MD Stanley Burt Other Provider MD Rhonda Rawls Other Provider DO Colten Xavier Other Provider [phone] MD Sudhakar Gross Other Provider [phone] MD Eriberto Yang Other Provider [phone] MD Jamel Noe Other Provider DO Dejuan Og Other Provider MD Chau Lara Attending Provider Schaffer II, Dr. Komal Mckeon [facility] [place] vailable Schaffer II, Dr. Komal Mckeon [facility] vailable Schaffer II, Dr. Komal Mckeon [facility] vailable Schaffer II, Dr. Komal Mckeon Primary [facility] [place] vailable Leyva, Ms. Willy Christina Hanley Attending Unavai lable Leyva, Ms. Willy Hanley Referring Unavai lable Kiko, Dr. Baltazar Laws Referring Unava ilable Schaffer II, Dr. Komal Mckeon [facility] vailable Kiko, Dr. Baltazar Laws Attending Unava ilable [facility], [facility] [phone] MD Silvestre Grover Admit Provider MD Silvestre Grover Attending Provider HEATHER Potter Other Provider Unavailable HEATHER Mendoza Other Provider Unavailable HEATHER Lo Other Provider Unavailable HEATHER Renner Other Provider Unavailable HEATHER Justin Other Provider Unavailable HEATHER Leone Other Provider Unavailable MD Kevin Leo Other Provider ZACH Leon Other Provider DO Meri Blanco Other Provider [phone] MD Ubaldo Calvo Other Provider DO Mateo Horne Other Provider MD Tyson Cheema Other Provider MD Marsha Fritz Other Provider Yaya, ANP-BC Meera Other Provider MD Eliezer Newell Other Provider MD Dustin Stapleton Other Provider MD Ute Colvin Other Provider MD Chau Lara Other Provider DO Danie Jaramillo Other Provider MD Chetan Gray Other Provider MD Cuong Dos Santos Other Provider Ana, BRIM SETTER-C Candida Hickman Other Provider MD Kushal Vizcarra Other Provider MD Torsten Burdick Other Provider MD Dudley Leon Other Provider MD Markus Johnson Other Provider DO Sofia Martinez Other Provider DO Zia Duncan Other Provider DO Rodolfo Temple Other Provider ZACH Sharma Other Provider DO Dru Reveles Other Provider MD Jarret Garza Other Provider ZACH Leyva Other Provider ZACH Shepherd Other Provider MD Suraj Razo Other Provider MD Komal Albright Other Provider ZACH Gamez Other Provider HEATHER Xiong Other Provider Unavailable Komal Schaffer MD Primary Care Provider Komal Schaffer MD Primary Care Provider Komal Schaffer MD Unavailable Sarbjit II Komal Primary Care Provider [phone] MD Eriberto Leyva Emergency Provider [phone] Sarbjit II Komal Primary Care Provider DO Dg Jacobson Emergency Provider Unavai marvin Horne DO Mateo Admit Provider DO Ozzie Mateo Attending Provider DO Jamel Packer Other Provider MD Abi Biswas Other Provider MD Silvestre Grover Other Provider MD Silvestre Grover Admit Provider MD Silvestre Grover Attending Provider Sarbjit II, Komal Primary Care Provider Dg Jacobson DO Emergency Provider Unavai marvin Horne DO, Mateo Admit Provider [phone] Ozzie GARCIA Mateo Attending Provider Silvestre Grover MD Other Provider Jamel Packer DO Other Provider True BRIDGES, Abi Hair Other Provider Silvestre Grover MD Admit Provider Silvestre Grover MD Attending Provider Tariq ROMERO, Libby Other Provider Unavailable Kelly ROMERO, Melva Other Provider Unavailable Rocio Renner RN Other Provider Unavailable Chayito Leone RN Other Provider Unavailable Alem Hinds RN Other Provider Unavailable Kevin Leo MD Other Provider Meri Blanco DO Other Provider Umesh BRIDGES, Ubaldo Other Provider [phone] Ozzie GARCIA Mateo Other Provider Anette BRIDGES, Tyson Other Provider [phone] Marsha Fritz MD Other Provider Stevan GARCIA, Danie Other Provider Barry BRIDGES, Keaton Other Provider Unavailable Sam SERRANO, Meera Other Provider [phone] Reece BRIDGES, Eliezer Other Provider Daya BRIDGES, Dustin Other Provider Ute Colvin MD Other Provider Chau Lara MD Other Provider Ella GARCIA, Danie Other Provider Isaac BRIDGES, Chetan Other Provider Cuong Dos Santos MD Other Provider Ana BRIM SETTER-C, Candida Hickman Other Provider Arjun SERRANO, Manuel Ceja Other Provider Unavailable Kushal Vizcarra MD Other Provider Torsten Burdick MD Other Provider Dudley Leon MD Other Provider Lizette BRIDGES, Mo Other Provider Unavailable Markus Johnson MD Other Provider Sofia Martinez DO Other Provider Zia Duncan DO Other Provider Susanne Sharma APRN Other Provider Dru Reveles DO Other Provider Greg BRIDGES, Jarret Ceja Other Provider Yuki Leyva APRN Other Provider [phone] Queenie Shepherd APRN Other Provider Danni BRIDGES, Suraj Other Provider Komal Albright MD Other Provider Cabral DO, Cliff Kaufman Other Provider Lauri GARCIA, Иван Other Provider Edward BRIDGES, Bharathi Garcia Other Provider Casper BRIDGES, Vince Sewell Other Provider [phone] Nikole Jaeger APRN Other Provider Kenyon BRIDGES, Kaz Other Provider Kameron BRIDGES, Kamaljit Other Provider Inga ROMERO, Mariana Other Provider Unavailable Juli Thomas APRN Emergency Provider Danie Jaramillo DO Admit Provider Danie Jaramillo DO Attending Provider [phone] Komal Schaffer II Primary Care Provider Dg Jacobson DO Emergency Provider Unavai Mateo Alexander DO Admit Provider Mateo Horne DO Attending Provider Silvestre Grover MD Other Provider Jamel Packer DO Other Provider Abi Biswas MD Other Provider Silvestre Grover MD Admit Provider Silvestre Grover MD Attending Provider Tariq ROMERO, Libby Other Provider Unavailable Kelly ROMERO, Melva Other Provider Unavailable Rocio Renner RN Other Provider Unavailable Chayito Leone RN Other Provider Unavailable Alem Hinds RN Other Provider Unavailable Kevin Leo MD Other Provider Meri Blanco DO Other Provider Ubaldo Calvo MD Other Provider Mateo Horne DO Other Provider Anetet BRIDGES, Tyson Other Provider [phone] Marsha Fritz MD Other Provider Danie Calles DO Other Provider Keaton Reddy MD Other Provider Unavailable Sam SERRANO, Meera Other Provider Reece BRIDGES, Eliezer Other Provider [phone] Daya BRIDGES, Dustin Other Provider Marii BRIDGES, Ute Other Provider Chau Lara MD Other Provider Danie Jaramillo DO Other Provider [phone] Chetan Gray MD Other Provider Raya BRIDGES, Cuong Other Provider Ana BRIM SETTER-C, Candida Hickman Other Provider Arjun SERRANO, Manuel Ceja Other Provider Unavailable Zackery BRIDGES, Kushal Nichols Other Provider Gennaro BRIDGES, Torsten Other Provider Edward BRIDGES, Dudley Other Provider Lizette BRIDGES, Mo Other Provider Unavailable Markus Johnson MD Other Provider Sofia Martinez DO Other Provider Zia Duncan DO Other Provider Susanne Sharma APRN Other Provider Dru Reveles DO Other Provider Greg BRIDGES, Jarret Ceja Other Provider Yuki Leyva APRN Other Provider Queenie Shepherd APRN Other Provider [phone] Suraj Razo MD Other Provider Komal Albright MD Other Provider Cabral DO, Cliff Kaufman Other Provider Иван Carreon DO Other Provider Edward BRIDGES, Bharathi Garcia Other Provider Casper BRIDGES, Vince Sewell Other Provider [phone] Heide SERRANO, Nikole Other Provider Kenyon BRIDGES, Kaz Other Provider Kameron BRIDGES, Kamaljit Other Provider Inga ROMERO, Mariana Other Provider Unavailable Juli Thomas APRN Emergency Provider Danie Jaramillo DO Admit Provider Danie Jaramlilo DO Attending Provider Kameron BRIDGES, Kamaljit Admit Provider Kenyon BRIDGES, Kaz Attending Provider Sawyer BRIDGES, Gucci Nichols Other Provider Peyman Hall DO Other Provider Bruce BRIDGES, Joseline Moore Emergency Provider Noah BRIDGES, Denzel Admit Provider Denzel Zamora MD Attending Provider Mohsen ROMERO, Esther Unavailable [phone] Ivan Barnhart Attending Unavailable Ivan Barnhart Admitting Unavailable KOMAL SCHAFFER Primary Care Unavailable Anastasia Rayo LPN Unavailable Unavailable BALTAZAR HOOVER Attending Unavailable BALTAZAR HOOVER Referring Unavailable KOMAL SCHAFFER Primary Care Unavailable WILLY LEYVA Referring Unavailable KOMAL SCHAFFER B Primary Care Unavailable WILLY LEYVA Attending Unavailable KOMAL SCHAFFER B Primary Care Unavailable WILLY LEYVA Referring Unavailable KOMAL SCHAFFER B Primary Care Unavailable WILLY LEYVA Attending Unavailable WILLY LEYVA Referring Unavailable KOMAL SCHAFFER B Primary Care Unavailable Komal Schaffer II Primary Care Provider Kathleen Parker APRN Emergency Provider [phone] DaromaJarret moore MD Admit Provider Jarret Garza MD Attending Provider Jamel Packer DO Other Provider Jarret Garza MD Other Provider [phone] Jamel Packer DO Attending Provider Rayo CASTING ROOM HELPER, Anastasia Unavailable Jamel Packer Consulting Unavailable Denzel Zamora Attending Unavailable Denzel Zamora Admitting Unavailable Komal Schaffer Primary Care Unavailable Gucci Jacques Consulting Unavailable Komal Schaffer Primary Care Unavailable Kaz Prescott Attending Unavailable Kamaljit Melo Admitting Unavailable Peyman Hall Consulting Unavailable Jamel Packer Consulting Unavailable Jarret Garza Attending Unavailable Jarret Garza Admitting Unavailable Komal Schaffer Primary Care Unavailable Schaffer, Komal Primary Care Unavailable Jamel Packer Consulting Unavailable Danie Jaramillo Attending Unavailable Danie Jaramillo Admitting Unavailable Komal Schaffer Primary Care Unavailable Libby Potter Consulting Unavailable Silvestre Grover Attending Unavailable Silvestre Grover Admitting Unavailable Melva Mendoza Consulting Unavailable Rocio Renner Consulting Unavailable Chayito Leone Consulting Unavailable Alem Hinds Consulting Unavailable Kevin Leo Consulting Unavailable Meri Blanco Consulting Unavailable Ubaldo [...] Martinez Consulting Unavailable Zia Duncan Consulting Unavailable ObikaSusanne Consulting Unavailable Dru Reveles Consulting Unavailable Daromar, Obaybharat M Consulting Unavailable Yuki Leyva Consulting Unavailable Queenie Shepherd Consulting Unavailable AlaSuraj oakes Consulting Unavailable Komal Albright Consulting Unavailable Cliff Cabral Consulting Unavailable Иван Carreon Consulting Unavailable Bharathi Leon Consulting Unavailable Vince Shirley Consulting Unava ilable Heide, Nikole Consulting Unavailable KenyonKaz hair Consulting Unavailable Kamaljit Melo Consulting Unavailable Mariana Xiong Consulting Unavailable Komal Schaffer Primary Care Unavailable Mateo Horne Admitting UnavailMateo Troncoso Attending UnavailSilvestre Mabry Consulting Unavailable Jamel Packer Consulting Unavailable Abi Biswas Consulting UnavailGucci Epstein MD Attending Provider Giedraitis , Andrius Vytautnandini Attending Unavailable Giedraitis MD, Andrius Vytautnandini Attending Unavailable Giedraitis MD, Andrius Vytautas Attending Unavailable Giedraitis MD, Andrius Vytautas Attending Unavailable Giedraitis MD, Andrius Vytautas Attending Unavailable Giedraitis MD, Andrius Vytautas Attending Unavailable Giedraitis MD, Andrius Vytautas Attending Unavailable Giedraitis , Andrius Vytautas Attending Unavailable HEMAIDE MCGARRY M Attending Unavailable LEELA BOCANEGRA Attending Unavailable MOOKIE TAMAYO Attending Unavailable LEELA BOCANEGRA M Attending Unavailable REAL OG A Attending Unavailable DOTTIE BOCANEGRARI M Attending Unavailable CLARENCE OGOLAS A Attending Unavailable CLARENCE OGOLAS A Attending Unavailable EARLE REAL A Referring Unavailable CLARENCE OGOLAS A Attending Unavailable STANLEY SAUNDERS Attending Unavailable CLARENCE OGOLAS A Attending Unavailable DALJITDOTTIERI M Attending Unavailable DALJITDOTTIERI M Attending Unavailable STANLEY SAUNDERS Attending Unavailable EARLE REAL A Attending Unavailable DALJIT, LEELA M Attending Unavailable Allergies Allergy Classification Reported Allergen(s) Allergy Type Date of Onset Reaction(s) Facility (1 source) No Known Medication Allergies; Translations: [No Known Medication Allergies] Propensity to adverse reactions (disorder) [facility] Repository (4 sources) nebivolol; Translations: [NEBIVOLOL] Drug Allergy 5 [facility] Medications Current Medications Medication Drug Class(es) Dates Sig (Normalized) Sig (Original) acetaminophen 325 mg / oxyCODONE hydrochloride 5 mg oral tablet (20 sources) Opioid Agonist Start: 04-01-2025 End: 05-01-2025 take 1 tablet by mouth once oxyCODONE-acetami nophen (Percocet) 5-325 MG tablet Indications: Pain Take 1 tablet by mouth every 12 (twelve) hours if needed for moderate pain or severe pain 60 tablet 04/01/2025 05/01/2025 Active Start: 02-18-2025 End: 03-20-2025 take 1 tablet by mouth once oxyCODONE-acetaminophen (Percocet) 5-325 MG tablet Indications: Pain Take 1 tablet by mouth every 12 (twelve) hours if needed for moderate pain or severe pain 60 tablet 02/18/2025 03/20/2025 Active Start: 02-18-2025 take 1 tablet by gloria th every six hours as needed for pain and pain and pain and pain oxyCODONE-acetaminophen (Percocet) 5-325 MG tablet Indications: Pain Take 1 tablet by mouth every 6 (six) hours if needed for moderate pain or severe pain 120 tablet 02/18/2025 Active Start: 02-18-2025 take 1 tablet by gloria th every six hours as needed for pain and pain and pain and pain oxyCODONE-acetaminophen (Percocet) 5-325 MG tablet Indications: Pain Take 1 tablet by mouth every 6 (six) hours if needed for moderate pain or severe pain 120 tablet 02/18/2025 Active Start: 02-18-2025 take 1 tablet by gloria th every six hours as needed for pain and pain and pain and pain oxyCODONE-acetaminophen (Percocet) 5-325 MG tablet Indications: Pain Take 1 tablet by mouth every 6 (six) hours if needed for moderate pain or severe pain 120 tablet 02/18/2025 Active Start: 02-13-2025 take 1 tablet by gloria th every twelve hours as needed for pain Oxycodone-Acetaminophen 5-325 mg tablet Active 1 TAB PO Q12H as needed for pain February 13, 2025 12:00am Complies with drug therapy Start: 09-09-2024 End: 02-18-2025 take 1 tablet by mouth twice daily as needed for pain oxyCODONE-acetaminophen (Percocet) 5-325 MG tablet Indications: Pain Take 1 tablet by mouth 2 (two) times a day as needed for moderate pain or severe pain 60 tablet 12/05/2024 02/18/2025 Discontinued take 1 tablet by gloria th every six hours as needed oxyCODONE-acetaminophen (Percocet) 5-325 mg tablet Take 1 tablet by mouth every 6 hours if needed for severe pain (7 - 10). Active Aller-itin (3 sources) Start: 02-17-2022 take 1 tablet by mouth once daily Aller-itin Aller-itin, 1 tab, Oral, Daily, allergies Start Date: 02/17/22 Status: Ordered apixaban 5 mg oral tablet (20 sources) Factor Xa Inhibitor Start: 05-10-2023 End: 06-09-2023 take 1 tablet by mouth every twelve hours Apixaban (Eliquis) 5 mg Tablet Active 5 MG PO Q12H 0 June 09, 2023 12:00am Complies with drug therapy Start: 05-10-2023 End: 06-09-2023 Start: 06-08-2019 take 1 tablet by gloria th twice daily apixaban (Eliquis) 5 MG tablet Indications: Pulmonary embolism, unspecified chronicity, unspecified pulmonary embolism type, unspecified whether acute cor pulmonale present (HCC) TAKE 1 TABLET BY MOUTH TWICE DAILY 180 tablet 3 05/27/2024 Active Start: 12-18-2018 End: 05-10-2023 take 2 tablets by mouth twice daily, then take 1 tablet by mouth twice daily Apixaban 5 mg (74 tabs) tablets,dose pack Discontinued 0 PO .COMPLEX December 18, 2018 12:00am May 10, 2023 11:59pm take 10 mg by mouth twice daily for 7 days; then 5 mg twice daily Start: 12-18-2018 End: 05-10-2023 Start: 12-18-2018 End: 05-10-2023 take 10 mg by mouth twice daily, then take 5 mg by mouth twice daily Apixaban Discontinued 0 PO .COMPLEX December 18, 2018 12:00am May 10, 2023 11:59pm take 10 mg by mouth twice daily for 7 days; then 5 mg twice daily Comment on above: Take 5 mg by mouth t wice daily. baclofen 10 mg oral tablet (20 sources) gamma-Aminobutyric Acid-ergic Agonist Start: 09-11-2024 take 1 tablet by mouth three times daily at mealtime baclofen (Lioresal) 10 MG tablet Indications: Cervical stenosis of spinal canal TAKE 1 TABLET BY MOUTH WITH FOOD OR MILK 3 TIMES DAILY 270 tablet 3 02/26/2025 Active Start: 12-15-2018 End: 07-31-2024 take 1 tablet by mouth three times daily Baclofen 10 mg tablet Discontinued 10 MG PO Three times daily July 28, 2024 1:00am July 31, 2024 12:46pm Start: 12-15-2018 End: 05-21-2023 take 1 tablet by mouth every eight hours Baclofen 10 mg tablet Discontinued 1 TAB PO Q8H December 15, 2018 12:00am May 21, 2023 12:22pm Comment on above: Take 10 mg by mouth. cephalexin 500 mg oral capsule (20 sources) Cephalosporin Antibacterial Start: End: take 1 capsule by mouth in the morning, then take 1 capsule by mouth in the evening, then take 1 capsule by mouth at bedtime cephalexin (Keflex) 500 MG capsule Indications: Cellulitis of right lower extremity Take 1 capsule (500 mg) by mouth in the morning and 1 capsule (500 mg) in the evening and 1 capsule (500 mg) before bedtime. Do all this for 10 days. 30 capsule 02/18/2025 02/28/2025 Active Start: 01-20-2019 End: 05-10-2023 take 1 capsule by mouth every six hours Cephalexin (Keflex) 500 mg capsule Discontinued 500 MG PO Q6H 28 January 20, 2019 12:00am May 10, 2023 11:59pm Start: 01-20-2019 End: 05-10-2023 take 1 capsule by mouth every twelve hours Keflex 500 mg Cap 500 mg = 1 cap(s), Oral, q12hr, # 14 cap(s), Refills(s) 0, Pharmacy: [id number], [id number], cm, 03/29/22 11:26:00 EDT, Height/Length Dosing, 150.9, kg, 03/29/22 11:26:00 EDT, Weight Dosing Start Date: 03/29/22 Status: Ordered clotrimazole 10 mg/ml topical cream (19 sources) Azole Antifungal Start: 10-09-2024 End: 06-06-2025 clotrimazole (Lotrimin) 1 % cream Indications: Yeast dermatitis Apply topically 2 (two) times a day 30 g 5 11/28/2024 12/28/2024 Active Start: 07-12-2024 End: 09-11-2024 Clotrimazole (Antifungal (Cl otrimazole)) 1 % Cream Discontinued 1 APPLIC TOPICAL Twice daily July 12, 2024 1:00am September 11, 2024 2:52pm Start: 07-12-2024 End: 09-11-2024 docosahexaenoic acid 120 mg / eicosapentaenoic acid 180 mg oral capsule (20 sources) take 2 capsules by m outh once daily omega-3 (Fish Oil) 1000 MG capsule Take 2 capsules by mouth Daily Active take 2 capsules by mouth in the morning omega-3 (Fish Oil) 1000 MG capsule Take 2 capsules by mouth in the morning. Active docosahexaenoic acid 144 mg / eicosapentaenoic acid 216 mg / vitamin e 2 unt oral capsule (16 sources) Start: 12-27-2017 take 1 capsule by mouth twice daily [place]-3 Fatty Acids-Fish Oil (Fish Oil) 360-1,200 mg Capsule Active 1 CAP PO Twice daily December 27, 2017 12:00am Complies with drug therapy Start: 12-27-2017 Fish Oils (11 sources) Start: 12-07-2021 take 1200 mg by mout h twice daily Fish Oil 1,200 mg, Oral, BID, Prophylaxis Start Date: 12/07/21 Status: Ordered Start: 12-07-2021 Fish Oil Oral Start Date: 12/07/21 Status: Ordered take 1 capsule by mo uth twice daily Fish Oil 1200 MG Oral Capsule Take 1 capsule twice daily Quantity: 0 Refills: 0 Ordered: 07-Sep-2022 DO Active furosemide 20 mg oral tablet (20 sources) Loop Diuretic Start: 11-04-2024 End: 11-04-2025 take 2 tablets by mouth once daily furosemide (Lasix) 20 mg tablet Indications: Localized edema Take 2 tablets (40 mg) by mouth once daily. 60 tablet 11 11/04/2024 11/04/2025 Active Start: 05-18-2021 End: 11-28-2025 take 1-2 tablets by mouth once daily furosemide (Lasix) 20 MG tablet Indications: Localized edema Take 1-2 tablets (20-40 mg) by mouth Daily 180 tablet 3 11/28/2024 11/28/2025 Active gabapentin 300 mg oral capsule (20 sources) Anti-epileptic Agent Start: 11-12-2024 take 1 capsule by mouth in the morning gabapentin (Neurontin) 300 MG capsule Indications: Type 2 diabetes mellitus with diabetic neuropathy, without long-term current use of insulin (HCC) TAKE 1 CAPSULE BY MOUTH IN THE MORNING AND 1 CAPSULE BY MOUTH BEFORE BEDTIME 180 capsule 3 11/12/2024 Active Start: 06-19-2024 take 2 capsules by m outh twice daily Gabapentin 300 mg capsule Active 600 MG PO Twice daily June 19, 2024 12:00am Complies with drug therapy Start: 10-30-2023 End: 10-29-2024 take 1 capsule by mouth in the morning gabapentin (Neurontin) 300 MG capsule Indications: Diabetic Neuropathy Take 1 capsule (300 mg) by mouth in the morning and 1 capsule (300 mg) before bedtime. 180 capsule 3 10/30/2023 10/29/2024 Active Start: 07-05-2019 End: 10-29-2024 take 1 capsule by mouth once daily at bedtime gabapentin (Neurontin) 300 mg capsule Take 1 capsule (300 mg) by mouth once daily at bedtime. 08/17/2021 Active Start: 07-05-2019 take 1 capsule by mo ut twice daily gabapentin (NEURONTIN) 300 mg capsule Take 300 mg by mouth twice daily. 5 07/05/2019 Active Comment on above: Take 300 mg by mouth twice daily. hydrALAZINE hydrochloride 50 mg oral tablet (20 sources) Arteriolar Vasodilator Start: 4 End: take 1 tablet by mouth twice daily Hydralazine 25 mg Tablet Discontinued 25 MG PO Twice daily 60 30 July 03, 2024 2:12pm July 28, 2024 6:26pm Start: 12-07-2021 hydrALAZINE 50 mg Start Date: 12/07/21 Status: Ordered Start: 12-27-2017 End: 10-09-2025 take 1 tablet by mouth in the morning hydrALAZINE (Apresoline) 50 MG tablet Indications: Benign essential hypertension Take 1 tablet (50 mg) by mouth in the morning and 1 tablet (50 mg) before bedtime. 180 tablet 3 10/09/2024 10/09/2025 Active Start: 12-27-2017 take 100 mg by mouth twice daily Hydralazine Active 100 MG PO Twice daily December 27, 2017 12:00am Comment on above: Take 50 mg by mouth twice daily. lactobacillus rhamnosus gg [id number] unt oral capsule (1 source) Start: 10-17-19 23 lactobacillus (CULTURELLE) capsule 1 capsule lisinopril 20 mg oral tablet (20 sources) Angiotensin Converting Enzyme Inhibitor Start: 03-04-20 17 End: 09-09-19 26 take 1 tablet by mouth once daily lisinopril 20 MG tablet Indications: Benign essential hypertension Take 1 tablet (20 mg) by mouth Daily 90 tablet 3 09/09/2024 09/09/2025 Active Comment on above: Take by mouth [...] MG PO Daily December 27, 2017 12:00am Complies with drug therapy take 1 capsule by [facility] once daily loratadine 10 mg capsule Take 1 capsule by mouth once daily. Active Comment on above: Take by mouth. [...] Start Date: 12/07/21 Status: Ordered Multiple Vitamin (MULTI-YOAN MINS PO) (1 source) Start: 12-07-2021 Multiple Vitam in (MULTI-VITAMINS PO) Take by mouth daily 0 12/07/2021 Active Multiple Vitamins-Minerals ( GNP ONE DAILY MENS 50+ADVANCED PO) (20 sources) Start: 06-30-2009 Multiple Vitam ins-Minerals (GNP ONE DAILY MENS 50+ADVANCED PO) 06/30/2009 Active Start: 06-30-2009 take 1 tablet [...] day with food Oral 0 06/30/2009 Active Ppvwyubu-Jus-Ff-Lycopen-Lute in (Adults 50 Plus) 0.4-300-250 mg-mcg-mcg Tablet (14 sources) Start: 12-27-2017 take 1 tablet by mouth once daily Start: 12-27-2017 take 1 tablet by gloria th once daily Idnjrlwq-Mfn-Yp-Lycopen-Lutein (Adults 5 0 Plus) 0.4-300-250 mg-mcg-mcg Tablet Active 1 TAB PO Daily December 27, 2017 12:00am Complies with drug therapy Start: 12-27-2017 take 1 tablet by gloria th once daily Mmtqmgac-Yxz-Vr-Lycopen-Lutein (Adults 5 0 Plus) 0.4-300-250 mg-mcg-mcg Tablet Active 1 TAB PO Daily December 26, 2017 11:00pm Start: 12-27-2017 take 1 tablet by gloria th once daily Jsargexx-Xjs-Vk-Lycopen-Lutein (Adults 5 0 Plus) 0.4-300-250 mg-mcg-mcg Tablet Active 1 TAB PO Daily December 27, 2017 12:00am multivit-min/ferrous fumarat e (MULTI VITAMIN ORAL) (4 sources) take 1 tablet by mouth once daily multivit-min/ferrous fumarate (MULTI VITAMIN ORAL) Take 1 tablet by mouth once daily. Active take 1 tablet by mouth once jose de jesus y multivit-min/ferrous fumarate (MULTI VITAMIN ORAL) Take 1 tablet by mouth once daily. 0 Active omega 2-ogi-gtx-fish oil 360 mg-108 mg- 180 mg-1,200 mg capsule (4 sources) take 1 capsule by mouth twice daily omega 4-kga-oli-fish oil 360 mg-108 mg- 180 mg-1,200 mg capsule Take 1 capsule by mouth 2 times a day. Active omega 3-dha-epa- fish oil 360 mg-108 mg- 180 mg-1,200 mg capsule TAKE DIRECTED. Active omega 3-dha-epa- fish oil 360 mg-108 mg- 180 mg-1,200 mg capsule TAKE DIRECTED. 0 Active [place]-3 Fatty Acids (FISH OIL) 1200 MG CAPS (1 source) Start: 06-08-2022 take 1 capsule by mouth at bedtime [place]-3 Fatty Acids (FISH OIL) 1200 MG CAPS Take 1,200 mg by mouth in the morning and at bedtime 0 06/08/2022 Active ondansetron (ZOFRAN-ODT) disintegrating tablet 4 mg (1 source) Start: 10-15-2022 ondansetron (ZOFRAN-ODT) disintegrating tablet 4 mg microencapsulated potassium chloride 10 meq extended release oral tablet (20 sources) Start: 09-11-2024 take 1 tablet by mouth in the morning potassium chloride CR (Klor-Con M10) 10 MEQ ER tablet Indications: Hypokalemia TAKE 1 TABLET BY MOUTH IN THE MORNING AND 1 TABLET BY MOUTH BEFORE BEDTIME TAKE WITH FOOD 180 tablet 3 11/19/2024 Active Start: 06-22-2024 End: 07-03-2024 Potassium Chloride (Klor-Con 10) 10 mEq Tablet Extended Release Discontinued 10 MEQ PO 3x/Day with meals 0 June 22, 2024 12:00am July 03, 2024 2:12pm Start: 06-22-2024 End: 07-03-2024 Potassium Chloride (Klor-Con M20) 20 mEq Tablet,Er Particles/Crystals Discontinued 20 MEQ PO Daily as needed for Hypokalemia 0 June 22, 2024 12:00am July 03, 2024 2:12pm Start: 05-10-2023 End: 10-29-2024 take 1 tablet by mouth once daily Potassium Chloride 10 mEq tablet,ER particles/crystals Discontinued 10 MEQ PO Daily June 09, 2023 9:05am September 11, 2024 2:53pm Start: 10-18-2022 End: 10-18-2022 potassium chloride (KLOR-CON [...] cap(s), Oral Start Date: 12/07/21 Status: Ordered Comment on above: Take 10 mEq by mouth . predniSONE 10 mg oral tablet (20 sources) Start: 11-19-2024 predniSONE (Deltasone) 10 MG tablet Indications: Myasthenia gravis (HCC) TAKE 1 AND 1/2 TABLETS BY MOUTH DAILY 135 tablet 11/19/2024 Active Start: 09-09-2024 predniSONE (De ltasone) 10 MG tablet Indications: Myasthenia gravis (CMS/HCC) TAKE 1 AND 1/2 TABLETS BY MOUTH DAILY 90 tablet 09/09/2024 Active Start: 07-31-2024 End: 09-11-2024 Prednisone 10 mg tablet Disc ontinued 10 MG PO As Directed July 31, 2024 1:00am September 11, 2024 2:51pm Take 60 mg (6 tablets) daily for 3 days followed by 40 mg (4 tablets) daily for another 3 days followed by 20 mg (2 tablets) daily for another 3 days. After that please go back to your overall prednisone 15 mg daily as this is your chronic maintenance dose of steroids for your myasthenia gravis. Take prednisone with meals. Start: 07-28-2024 End: 09-11-2024 Prednisone 10 mg tablet Disc ontinued 15 MG PO Daily July 28, 2024 1:00am July 31, 2024 12:46pm Start: 07-03-2024 End: 02-26-2025 take 3 tablets by mouth once daily Prednisone 5 mg tablet Active 15 MG PO Daily February 26, 2025 10:35am Complies with drug therapy Start: 06-22-2024 End: 07-03-2024 take 3 tablets by mouth once daily Prednisone 20 mg Tablet Discontinued 60 MG PO Daily 10 19June 22, 2024 12:00am July 03, 2024 2:12pm Start: 06-22-2024 take 60 mg by mouth once daily Prednisone Active 60 MG PO Daily 3 June 22, 2024 12:00am Start: 02-12-2024 End: 06-19-2024 Start: 12-27-2017 End: 07-03-2024 Prednisone 10 mg tablet Disc ontinued 60 MG PO Daily February 12, 2024 12:00am June 19, 2024 10:37am administer with food or milk Start: 12-27-2017 End: 07-03-2024 take 1 tablet by mouth once daily Prednisone 10 mg tablet Discontinued 10 MG PO Daily June 09, 2023 9:05am July 03, 2024 2:12pm On Hold: Resume on 06/24/24. Start: 12-27-2017 End: 12-27-2017 Prednisone 10 mg tablet Disc ontinued December 27, 2017 12:00am December 27, 2017 5:01pm Start: 06-08-2017 End: 11-23-2024 End: 09-20-2023 take 1 tablet by mouth once daily predniSONE (Deltasone) 5 mg tablet Take 1 tablet (5 mg) by mouth once daily. 0 09/20/2023 Discontinued (Duplicate order) pyridostigmine bromide 60 mg oral tablet (20 sources) Start: 08-26-2024 pyridostigmine (Mestinon) 60 MG tablet Indications: Myasthenia gravis (HCC) TAKE 1 TABLET BY MOUTH IN THE MORNING AND 1 TABLET BY MOUTH AT NOON AND 1 TABLET BY MOUTH IN THE EVENING AND 1 TABLET BY MOUTH BEFORE BEDTIME 400 tablet 3 08/26/2024 Active Start: 04-05-2017 End: 06-09-2023 take 1 tablet by mouth four times daily Pyridostigmine [place] 60 mg tablet Discontinued 1 TAB PO Four times daily December 27, 2017 12:00am June 09, 2023 9:05am Start: 04-05-2017 pyridostigmine (MESTINON) 60 mg tablet Take 100 mg by mouth four times daily. 0 04/05/2017 Active Comment on above: Take 100 mg by mouth four times daily. simvastatin 40 mg oral tablet (20 sources) HMG-CoA Reductase Inhibitor Start: 017 take 1 tablet by mouth once daily in the evening simvastatin (Zocor) 40 MG tablet Indications: Pure hypercholesterolemia TAKE 1 TABLET BY MOUTH ONCE DAILY IN THE EVENING 90 tablet 3 09/23/2024 Active Comment on above: Take by mouth once d aily. spironolactone 25 mg oral tablet (20 sources) Aldosterone Antagonist Start: 025 End: 026 take 1 tablet by mouth once daily spironolactone (Aldactone) 25 MG tablet Take 25 mg by mouth Daily 01/21/2025 Active Start: 06-22-2024 End: 09-11-2024 take 1 tablet by mouth once daily Spironolactone 25 mg Tablet Discontinued 25 MG PO Daily July 03, 2024 2:12pm September 11, 2024 2:52pm (6 sources) Start: 05-10-2023 Start: 12-15-2018 End: 05-10-2023 Start: 12-27-2017 Completed/Discontinued Medications Medication Drug Class(es) Dates Sig (Normalized) Sig (Original) acetaminophen 325 mg oral tablet (11 sources) Start: 06-22-2024 End: 09-17-2024 take 1-3 tablets by mouth every four hours as needed for pain Acetaminophen (Tylenol) 325 mg Tablet Discontinued 650 MG PO Q4H as needed for Pain Scale 1 - 3 or fever 0 June 22, 2024 12:00am July 09, 2024 7:27pm Start: 06-22-2024 take 2 tablets by mo uth every four hours Acetaminophen (Tylenol) 325 mg Tablet Active 650 MG PO Q4H 0 June 22, 2024 12:00am Start: 10-15-2022 acetaminophen (TYLENOL) tablet 650 mg acetaminophen 325 mg / HYDROcodone bitartrate 5 mg oral tablet (20 sources) Opioid Agonist Start: 07-09-2024 End: 07-31-2024 take 1 tablet by mouth every six hours as needed for pain Hydrocodone-Acetaminophen 5-325 mg tablet Discontinued 1 TAB PO Every 6 hours as needed for pain July 09, 2024 1:00am July 31, 2024 2:03pm Start: 07-09-2024 End: 07-31-2024 Start: 06-19-2024 End: 06-22-2024 Start: 12-28-2023 End: 09-17-2024 take 1 tablet by mouth once daily as needed for pain Hydrocodone-Acetaminophen 5-325 mg tablet Discontinued 1 TAB PO Daily as needed for pain June 19, 2024 12:00am June 22, 2024 12:27pm [id number] 200 actuat albuterol 0.09 mg/actuat metered dose inhaler (12 sources) beta2-Adrenergic Agonist Start: 12-15-2018 End: 05-10-2023 take 1 puff(s) by inhalation every four hours as needed Albuterol Sulfate 90 mcg/actuation HFA aerosol inhaler Discontinued 2 PUFF INHALATION Q4H as needed for Shortness Of Breath December 15, 2018 12:00am May 10, 2023 11:59pm Start: 12-15-2018 End: 05-10-2023 take 1 puff(s) [...] PO Every morning June 10, 2023 10:37am June 19, 2024 10:36am amLODIPine 5 mg oral tablet (20 sources) Dihydropyridine Calcium Channel Ha Start: 12-27-2017 End: 09-20-2023 take 1 tablet by mouth once daily Amlodipine 5 mg tablet Discontinued 5 MG PO Daily December 27, 2017 12:00am May 10, 2023 11:59pm ascorbic acid 500 mg oral tablet (8 sources) Vitamin C Start: 06-22-2024 End: 09-11-2024 take 1 tablet by mouth once daily Ascorbic Acid (Vitamin C) (Vitamin C) 500 mg Tablet Discontinued 500 MG PO Daily June 22, 2024 12:00am September 11, 2024 2:52pm aspirin 81 mg delayed release oral tablet (20 sources) Platelet Aggregation Inhibitor, Nonsteroidal Anti-inflammatory Drug Start: 12-18-2018 End: 05-10-2023 take 1 tablet by mouth once daily Aspirin (Aspir-Low) 81 mg tablet,delayed release (DR/EC) Discontinued 81 MG PO Daily December 18, 2018 12:00am May 10, 2023 11:59pm Start: 02-21-2018 End: 05-06-2022 take 1 tablet by mouth once daily Aspirin 325 mg Tablet Discontinued 325 MG PO Daily February 21, 2018 12:00am December 18, 2018 12:27pm Start: 12-27-2017 End: 02-14-2018 take 1 tablet by mouth once daily Aspirin 325 mg Tablet Discontinued 325 MG PO Daily December 27, [...] procedure, # 2 tab(s), Refills(s) 0, Pharmacy: [id number] Start Date: 12/07/21 Status: Ordered cocoa butter 0.884 mg/mg / phenylephrine hydrochloride 0.0025 mg/mg rectal suppository (8 sources) alpha-1 Adrenergic Agonist Start: 06-22-20 End: 07-09-20 Phenylephrine-[place] Butter (Preparation H(Pe,Cb)) 0.25-88.44 % Suppository Discontinued 1 SUPP AR Twice daily as needed for hemorrhoids 0 June 22, 2024 12:00am July 09, 2024 7:28pm Start: 06-22-2024 End: 07-09-2024 doxycycline hyclate 100 mg oral tablet (7 sources) Tetracycline-class Drug Start: 07-24-2024 End: 08-03-2024 take 1 tablet by mouth twice daily Doxycycline Hyclate 100 mg tablet Discontinued 100 MG PO Twice daily July 28, 2024 1:00am July 31, 2024 12:46pm hydroCHLOROthiazide 12.5 mg / lisinopril 20 mg oral tablet (1 source) Thiazide Diuretic, Angiotensin Converting Enzyme Inhibitor End: 10-18-2022 lisinopril-hydro CHLOROthiazide (PRINZIDE;ZESTOR ETIC) 20-12.5 MG per tablet Take by mouth daily 0 10/18/2022 Discontinued (LIST CLEANUP) hydroCHLOROthiazide 25 mg / triamterene 37.5 mg oral tablet (20 sources) Potassium-sparing Diuretic, Thiazide Diuretic Start: 09-11-2024 Start: 07-09-2024 End: 07-31-2024 Start: 12-07-2021 take 1 capsule by [facility] once daily hydrochlorothiazide-triamterene 25 mg-37.5 mg Cap 1 cap(s), Oral, Daily, High blood pressure Start Date: 12/07/21 Status: Ordered Start: 12-27-2017 End: 06-22-2024 Start: 03-04-2017 End: 02-13-2025 take 1 tablet by mouth once daily Triamterene-Hydrochlorothiazid 37.5-25 mg tablet Discontinued 1 TAB PO Daily September 11, 2024 1:00am February 13, 2025 12:06pm Comment on above: Take by mouth once d aily. lidocaine 0.04 mg/mg medicated patch (7 sources) Antiarrhythmic, Amide Local Anesthetic Start: 07-03-20 End: 09-11-19 apply 1 dose topically once daily Lidocaine (Lidocaine Pain Relief) 4 % Adhesive Patch,Medicated Discontinued 2 PATCH TOPICAL Daily 60 July 03, 2024 1:00am September 11, 2024 2:52pm metoprolol tartrate 25 mg oral tablet (18 sources) beta-Adrenergic Ha Start: 02-22-20 End: 12-16-19 19 take 1 tablet by mouth twice daily Metoprolol Tartrate 25 mg tablet Discontinued 25 MG PO Twice daily February 21, 2018 12:00am December 15, 2018 7:56pm Comment on above: Take 25 mg by mouth twice daily. Multi Vitamin TABS (2 sources) Multi Vitamin TA BS TAKE 1 TABLET DAILY. Quantity: 0 Refills: 0 Ordered: 31-Aug-2021 DO Active MULTIVIT-MINERALS/F ERROUS FUM (MULTI VITAMIN ORAL) (2 sources) MULTIVIT-MINERAL S/FE RROUS FUM (MULTI VITAMIN ORAL) Take by mouth once daily. 0 Active Comment on above: Take by mouth once d aily. naproxen sodium 220 mg oral tablet (17 sources) Nonsteroidal Anti-inflammatory Drug Start: 12-28-19 18 End: 12-19-19 19 take 2 tablets by mouth once daily Naproxen Sodium (Aleve) 220 mg Tablet Discontinued 2 TAB PO Daily December 27, 2017 12:00am December 18, 2018 12:27pm End: 05-06-2022 NAPROXEN ORAL Take by mouth. 0 05/06/2022 Discontinued (Course of therapy completed) Comment on above: Take by mouth. nebivolol 10 mg oral tablet (20 sources) Start: 12-07-2021 End: 02-13-2025 take 1 tablet by mouth once daily Nebivolol 10 mg tablet Discontinued 10 MG PO Daily May 10, 2023 12:00am February 13, 2025 12:06pm On Hold: Resume on 09/20/24. Comment on above: Take 10 mg by mouth. nystatin 100 unt/mg topical powder (20 sources) Polyene Antifungal Start: 07-12-2024 End: 09-11-2024 Nystatin (Nystop) 100,000 unit/gram Powder Discontinued 1 APPLIC TOPICAL Four times daily 19 06July 12, 2024 1:00am September 11, 2024 2:52pm Start: 07-12-2024 End: 09-11-2024 Start: 06-09-2023 nystatin (Myco statin) 117780 UNIT/GM powder 06/09/2023 Active Start: 06-09-2023 nystatin (Myco statin) [id number] UNIT/GM powder APPLY TO THE AFFECTED AREA(S) THREE TIMES DAILY FOR 30 DAYS 06/09/2023 Active Start: 06-09-2023 End: 06-19-2024 Nystatin (Nystop) 100,000 un it/gram Powder Discontinued 1 APPLIC TOPICAL Three times daily 09 19June 09, 2023 12:00am June 19, 2024 10:38am Start: 06-09-2023 End: 06-19-2024 [place]-3 Fatty Acids, FISH OIL, 360-1,200 mg cap (2 sources) take 1 capsule by mouth twice daily [place]-3 Fatty Acids, FISH OIL, 360-1,200 mg cap [...] Active Comment on above: Take by mouth. oxyCODONE hydrochloride 5 mg oral tablet (5 sources) Opioid Agonist Start: 07-31-20 End: 09-11-19 take 2.5 mg by mouth every four hours as needed for pain Oxycodone 5 mg Tablet Discontinued 2.5 MG PO Every 4 hours as needed for Pain 19 03July 31, 2024 September 11, 2024 2:52pm pantoprazole 40 mg delayed release oral tablet (8 sources) Proton Pump Inhibitor Start: 06-22-20 End: 07-09-20 take 1 tablet by mouth twice daily Pantoprazole 40 mg Tablet,Delayed Release (Dr/Ec) Discontinued 40 MG PO Twice daily 0 June 22, 2024 12:00am July 09, 2024 7:28pm phenazopyridine hydrochloride 100 mg oral tablet (3 [...] q12hr, # 30 tab(s), Refills(s) 0, Pharmacy: [id number] Start Date: 02/01/22 Status: Ordered Comment on above: Take 100 mg by mouth twice daily as needed. polyethylene glycol 3350 47025 mg powder for oral solution (1 source) Osmotic Laxative Start: 3 17 g, Oral, DAILY PRN, Starting on 10/15/22 at 1920, Until Discontinued, Constipation First line therapy for constipation saccharomyces boulardii 250 mg oral capsule (7 sources) Start: 4 End: 4 take 1 capsule by mouth twice daily Saccharomyces Boulardii 250 mg Capsule Discontinued 250 MG PO Twice daily 60 July 03, 2024 1:00am July 09, 2024 7:29pm 1000 ml sodium chloride 9 mg/ml injection [...] mg / trimethoprim 160 mg oral tablet (16 sources) Dihydrofolate Reductase Inhibitor Antibacterial, Sulfonamide Antimicrobial Start: 02-23-2018 End: 12-15-2018 take 1 tablet by mouth twice daily Sulfamethoxazole-Trimethoprim (Bactrim Ds) 800-160 mg tablet Discontinued 1 TAB PO Twice daily February 23, 2018 12:00am December 15, 2018 7:44pm Start: 02-23-2018 End: 12-15-2018 traMADol hydrochloride 50 mg oral tablet (1 [...] Date Documented Date Episodic/Chronic Cancer of bladder (20 sources) Malignant neoplasm of posterior wall of bladder; Translations: [Malignant neoplasm of lateral wall of urinary bladder] Onset: 2 Chronic Cardiac dysrhythmias (20 sources) Atrial fibrillation; Translations: [Unspecified atrial fibrillation] Onset: 3 05-18-2023 Chronic Comment on above: Problem List clean-u p per request of Phys. EHR Cmte Cardiac dysrhythmias (2 sources) Bradycardia; Translations: [Bradycardia, unspecified] 10-09-2024 Episodic Chronic kidney disease (20 sources) Chronic kidney disease stage 3; Translations: [Stage 3 chronic kidney disease] Onset: 4 05-11-2023 Chronic Comment on above: Problem List clean-u p per request of Phys. EHR Cmte Coagulation and hemorrhagic disorders (20 sources) Hypercoagulability state; Translations: [Other primary thrombophilia] Onset: 3 12-27-2022 Chronic Congestive heart failure; nonhypertensive (20 sources) Right ventricular failure; Translations: [Right heart [...] [Pure hypercholesterolemia, unspecified] Onset: 2 12-03-2021 Chronic E Codes: Fall (2 sources) Fall; Translations: [Unspecified fall, subsequent encounter] 12-05-2024 Episodic Esophageal disorders (20 sources) Gastroesophageal reflux disease; Translations: [Gastro-esophageal reflux [...] [Fever, unspecified] Onset: 3 Resolved: 3 Episodic Fracture of lower limb (6 sources) Closed fracture of distal phalanx of great toe; Translations: [Nondisplaced fracture of distal phalanx of left great toe, initial encounter for closed fracture] 12-05-2024 Episodic Genitourinary symptoms and ill-defined conditions (2 sources) Urge incontinence; Translations: [Urge incontinence of urine] Onset: 2 Chronic Genitourinary symptoms and ill-defined conditions (20 sources) Blood in urine; Translations: [Gross hematuria] Onset: 2 Episodic Hyperplasia of prostate (20 sources) Benign prostatic hypertrophy without outflow obstruction; Translations: [Benign prostatic hyperplasia without lower urinary tract symptoms] Onset: 2 Chronic Malaise and fatigue (20 sources) Fatigue; Translations: [Chronic fatigue, unspecified] Onset: 4 12-21-2023 Chronic Mycoses (5 sources) Pain in toe; Translations: [Tinea unguium] 06-10-2024 Episodic Neoplasms of unspecified nature or uncertain behavior (3 sources) Neoplasm of unspecified behavior of bladder; Translations: [NEOPLASM UNS BEHAVIOR OF BLADDER] Onset: 2 Episodic Open wounds of extremities (6 sources) Laceration of toe without foreign body; Translations: [Laceration without foreign body of left lesser toe(s) without damage to nail, initial encounter] 12-05-2024 Episodic Osteoarthritis (20 sources) Osteoarthritis of joint of left elbow; Translations: [Primary osteoarthritis, left elbow] Onset: 3 12-27-2022 Chronic Other aftercare (2 sources) Long-term current use of systemic steroid; 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] Onset: 3 Episodic Other and ill-defined cerebrovascular disease (20 sources) Chronic cerebral ischemia; Translations: [Cerebral ischemia] Onset: 3 12-27-2022 Chronic Other and ill-defined cerebrovascular disease (20 sources) Small vessel cerebrovascular disease; Translations: [Cerebrovascular disease, unspecified] Onset: 3 12-27-2022 Chronic Other and ill-defined heart disease (20 sources) Cardiomegaly; Translations: [Cardiomegaly] Onset: 3 12-27-2022 Chronic Other connective tissue disease (3 sources) Paraparesis; Translations: [Other symptoms and signs involving the musculoskeletal system] 09-21-2023 Episodic Other connective tissue disease (3 sources) Pain in right lower limb; Translations: [Pain in right leg] 09-21-2023 Episodic Other connective tissue disease (4 sources) Triggering of digit; Translations: [Trigger finger, right middle finger] 02-18-2025 Episodic Other connective tissue disease (2 sources) Muscle pain; Translations: [Myalgia, unspecified site] 02-18-2025 Episodic Other diseases of bladder and urethra [...] Chronic Other diseases of veins and lymphatics (5 sources) Vascular insufficiency; Translations: [Venous insufficiency (chronic) (peripheral)] [...] dysfunction] Onset: 3 Resolved: 3 Episodic Other nervous system disorders (20 sources) [...] Phys. EHR Cmte Other nervous system disorders (20 sources) Myasthenia gravis with exacerbation; Translations: [Myasthenia gravis with (acute) exacerbation] 05-11-2023 Chronic Comment on above: Problem List clean-u p per request of Phys. EHR Cmte Other nervous system disorders (18 sources) Myasthenia gravis with (acute) exacerbation; Translations: [Myasthenia gravis with (acute) exacerbation] Onset: 4 05-21-2023 Chronic Other nervous system disorders (16 sources) Myasthenia gravis without (acute) exacerbation; Translations: [Myasthenia gravis without (acute) exacerbation] Onset: 4 05-21-2023 Chronic Other nervous system disorders (20 sources) Difficulty walking; Translations: [Difficulty in walking, not elsewhere classified] Onset: 3 09-21-2023 Chronic Other nervous system disorders (20 sources) Carpal tunnel syndrome; Translations: [Carpal tunnel syndrome, unspecified upper limb] Onset: 3 12-27-2022 Chronic Other nervous system disorders (20 sources) Ulnar neuropathy; Translations: [Lesion of ulnar nerve, unspecified upper limb] Onset: 3 12-27-2022 Chronic Other nervous system disorders (2 sources) Myasthenia gravis without exacerbation; Translations: [Myasthenia gravis without (acute) exacerbation] 10-05-2023 Chronic Other nervous system disorders (20 sources) Bilateral ulnar nerve disorder; Translations: [Lesion of ulnar nerve, bilateral upper limbs] Onset: 4 12-21-2023 Chronic Other nervous system disorders (5 sources) Unable to walk; Translations: [Difficulty in walking, not elsewhere classified] 07-28-2024 Chronic Other nervous system disorders (2 sources) Difficulty in walking, not elsewhere classified; Translations: [Difficulty in walking] 07-31-2024 Chronic Other nervous system disorders (1 source) Other chronic pain; Translations: [Other chronic pain] Onset: 5 Chronic Other nervous system disorders (2 sources) Reduced mobility; Translations: [Other abnormalities of gait and mobility] 12-05-2024 Episodic Other nutritional; endocrine; and metabolic disorders (20 sources) Obesity; Translations: [Obesity, unspecified] Onset: 4 12-07-2021 Chronic Other nutritional; endocrine; and metabolic disorders (20 sources) Body mass index 40+ - severely obese; Translations: [Morbid obesity] Onset: 3 05-16-2023 Chronic Comment on above: Problem List clean-u p per request of Phys. EHR Cmte Other nutritional; endocrine; and metabolic disorders (2 sources) Morbid obesity; Translations: [Morbid (severe) obesity due to excess calories] Onset: 3 Chronic Other nutritional; endocrine; and metabolic disorders (7 sources) Hypomagnesemia; Translations: [Hypomagnesemia] Onset: 3 Chronic Other nutritional; endocrine; and metabolic disorders (2 sources) Hypocalcemia; Translations: [Hypocalcemia] Onset: 3 Chronic Other nutritional; endocrine; and metabolic disorders (10 sources) Morbid (severe) obesity due to excess calories; Translations: [Morbid obesity] Onset: 3 05-21-2023 Chronic Other nutritional; endocrine; and metabolic disorders (20 sources) Obesity caused by energy imbalance; Translations: [Morbid (severe) obesity due to excess calories] Onset: 3 12-27-2022 Chronic Other nutritional; endocrine; and metabolic disorders (4 sources) Severe obesity; Translations: [Class 3 severe obesity due to excess calories with serious comorbidity and body mass index (BMI) of 45.0 to 49.9 in adult ([facility])] 05-27-2024 Chronic Other nutritional; endocrine; and metabolic disorders (2 sources) Hypomagnesemia; Translations: [Disorders of magnesium metabolism] 07-31-2024 Chronic Other nutritional; endocrine; and metabolic disorders (3 sources) Body mass index (BMI) 45.0-49.9, adult; Translations: [Body mass index (BMI) 45.0-49.9, adult (Multi)] Onset: Chronic Other upper respiratory disease (20 sources) Allergic rhinitis; Translations: [Other allergic rhinitis] Onset: 3 12-27-2022 Chronic Other upper respiratory infections (2 sources) Acute sinusitis; Translations: [Other acute sinusitis] 07-24-2024 Episodic Peripheral and visceral atherosclerosis (2 sources) Intermittent claudication of bilateral lower limbs co-occurrent and due to atherosclerosis; Translations: [Atherosclerosis of [place] arteries of extremities with intermittent claudication, bilateral legs] 10-05-2023 Chronic Pulmonary heart disease (20 sources) Cor pulmonale; Translations: [Chronic pulmonary heart disease, unspecified] Onset: 3 06-05-2023 Chronic Residual codes; unclassified (9 sources) Obstructive sleep apnea of adult 12-07-2021 Chronic Residual codes; unclassified (20 sources) Obstructive sleep apnea syndrome; Translations: [Obstructive sleep apnea (adult) (pediatric)] Onset: 3 12-03-2021 Chronic Comment on above: Problem List clean-u p per request of Phys. EHR Cmte Residual codes; unclassified (20 sources) Obstructive sleep apnea (adult) (pediatric); Translations: [Obstructive sleep apnea (adult)(pediatric)] Onset: 2 05-21-2023 Chronic Residual codes; unclassified (6 sources) Localized edema; Translations: [LOCALIZED EDEMA] Onset: Episodic Residual codes; unclassified (10 sources) Localized edema; Translations: [Localized edema] Onset: 3 07-24-2024 Episodic Residual codes; unclassified (7 sources) Pain; Translations: [Pain, unspecified] 12-05-2024 Episodic Respiratory failure; insufficiency; arrest (adult) (2 sources) Chronic hypoxemic respiratory failure; Translations: [Chronic respiratory failure with hypoxia] 09-18-2024 Chronic Retinal detachments; defects; vascular occlusion; and retinopathy (9 sources) 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 Skin and subcutaneous tissue infections (2 sources) Cellulitis of right lower limb; Translations: [Cellulitis of right lower limb] 02-18-2025 Episodic Spondylosis; intervertebral disc disorders; other back problems (20 sources) Lumbosacral spondylosis without myelopathy; Translations: [Cervical spondylosis] Onset: 3 12-07-2021 Chronic Superficial injury; contusion (8 sources) Contusion of orbital tissue of right eye; Translations: [Contusion of eyeball and orbital tissues, right eye, initial encounter] Onset: 4 08-08-2024 Episodic Unclassified (2 sources) Dyspnea, unspecified / R06.00(ICD-9) Onset: 8 Unclassified (2 sources) The office is currently closed. Please call the office on Monday for a follow-up appointment. Unclassified (2 sources) The office is currently closed. Please call the office on Monday for a follow-up appointment within 3-5 days. Urinary tract infections (20 sources) Urinary tract infection caused by Enterococcus; Translations: [Urinary tract infection, site not specified] 02-23-2018 Episodic Comment on above: Problem List clean-u p per request of Phys. EHR Cmte Viral infection (1 source) COVID-19; Translations: [COVID-19] Onset: 1 Past or Other Problems Problem Classification Problem Date Documented Da te Episodic/Chronic Acute and unspecified renal failure (20 sources) Acute renal failure syndrome; Translations: [Acute kidney failure, unspecified] Onset: 09-11-2024 Resolved: 09-17-2024 07-09-2024 Episodic Administrative/social admission (20 sources) Other reduced mobility; Translations: [Impaired mobility and activities of daily living] Onset: 11-17-2023 05-16-2023 Episodic Comment on above: Problem List clean-u p per request of Phys. EHR Cmte Blindness and vision defects (5 sources) Eye / vision finding; Translations: [Unspecified visual disturbance] Onset: 07-09-2024 07-09-2024 Episodic E Codes: Fall (2 sources) Fall 12-05-2024 Fluid and electrolyte disorders (20 sources) Hyponatremia; Translations: [Hypo-osmolality and hyponatremia] Onset: 10-16-2022 Resolved: 10-18-2022 Episodic Immunizations and screening for infectious disease (4 sources) Encounter for immunization; Translations: [ENCOUNTER FOR IMMUNIZATION] Onset: 05-25-2021 Episodic Malaise and fatigue (20 sources) Malaise and fatigue; Translations: [Other malaise] Onset: 10-16-2022 Resolved: 10-18-2022 Episodic Other aftercare (3 sources) Other ad terminal makeup operator (current) drug therapy; Translations: [OTH PRISON CURRENT DRUG THERAPY] Onset: 01-20-2022 Episodic Other aftercare (8 sources) exterminator helper termite (current) use of anticoagulants; Translations: [Long-term (current) use of anticoagulants] Onset: 01-20-2022 07-04-2024 Episodic Other aftercare (20 sources) Taking high risk medication; Translations: [Other ad terminal makeup operator (current) drug therapy] Onset: 09-20-2023 09-20-2023 Episodic Other aftercare (20 sources) Long-term current use of anticoagulant; Translations: [exterminator helper termite (current) use of anticoagulants] Onset: 09-17-2024 06-23-2024 Episodic Other connective tissue disease (20 sources) Calcaneal spur; Translations: [Calcaneal spur, unspecified foot] Onset: 12-27-2022 12-07-2021 Episodic Other connective tissue disease (20 sources) Weakness of face muscles; Translations: [Facial weakness] Onset: 12-21-2023 12-21-2023 Episodic Other connective tissue disease (20 sources) Cramp; Translations: [Cramp and spasm] Onset: 12-21-2023 12-21-2023 Episodic Other gastrointestinal disorders (20 sources) Oropharyngeal dysphagia; Translations: [Dysphagia, oropharyngeal phase] Onset: 11-17-2023 05-22-2023 Episodic Comment on above: Problem List clean-u p per request of Phys. EHR Cmte Other lower respiratory disease (13 sources) Dyspnea, unspecified; Translations: [Other respiratory abnormalities] Onset: 01-08-2018 06-19-2024 Episodic Other lower respiratory disease (20 sources) Dyspnea on exertion; Translations: [Other forms of dyspnea] Onset: 12-27-2022 12-27-2017 Episodic Comment on above: Problem List clean-u p per request of Phys. EHR Cmte Other lower respiratory disease (20 sources) Dyspnea; Translations: [Other respiratory abnormalities] Onset: 06-05-2023 06-05-2023 Episodic Other nervous system disorders (1 source) Parageusia; Translations: [PARAGEUSIA] Onset: 05-02-2021 Episodic Other nervous system disorders (2 sources) Anosmia; Translations: [ANOSMIA] Onset: 04-19-2021 Episodic Other nervous system disorders (20 sources) Loss of sense of smell; Translations: [Anosmia] Onset: 12-27-2022 12-27-2022 Episodic Other nervous system disorders (20 sources) Loss of taste; Translations: [Parageusia] Onset: 12-27-2022 12-27-2022 Episodic Other nervous system disorders (20 sources) Poor balance; Translations: [Other abnormalities of gait and mobility] Onset: 12-27-2022 12-27-2022 Episodic Other nervous system disorders (17 sources) H/O: musculoskeletal disease; Translations: [Personal history of other diseases of the nervous system and sense organs] Onset: 03-17-2023 03-17-2023 Episodic Other nervous system disorders (20 sources) Tremor; Translations: [Tremor, unspecified] Onset: 12-21-2023 12-21-2023 Episodic Other nervous system disorders (20 sources) Bradykinesia; Translations: [Other abnormal involuntary movements] Onset: 12-21-2023 12-21-2023 Episodic Other screening for suspected conditions (not mental disorders or infectious disease) (20 sources) Patient encounter status; Translations: [Encounter for screening for other disorder] Onset: 10-17-2022 Resolved: 11-17-2023 Episodic Comment on above: Problem List clean-u p per request of Phys. EHR Cmte Pulmonary heart disease (20 sources) Pulmonary embolism; Translations: [Personal history of pulmonary embolism] Onset: 01-20-2022 Resolved: 11-17-2023 12-07-2021 Episodic Comment on above: Problem List clean-u p per request of Phys. EHR Cmte Residual codes; unclassified (20 sources) Edema; Translations: [Edema] Onset: 06-05-2023 06-05-2023 Episodic Residual codes; unclassified (3 sources) Never smoked tobacco; Translations: [Other specified health status] Onset: 09-24-2024 09-24-2024 Episodic Residual codes; unclassified (3 sources) Other specified health status; Translations: [Other specified health status] Onset: 06-22-2024 Episodic Respiratory failure; insufficiency; arrest (adult) (20 sources) Acute respiratory failure; Translations: [Acute respiratory failure with hypoxia] Onset: 11-17-2023 Resolved: 11-17-2023 05-11-2023 Episodic Comment on above: Problem List clean-u p per request of Phys. EHR Cmte Skull and face fractures (20 sources) Injury of head; Translations: [Unspecified fracture of skull, initial encounter for closed fracture] Onset: 09-17-2024 Resolved: 09-17-2024 08-08-2024 Episodic Spondylosis; intervertebral disc disorders; other back problems (20 sources) Cervical radiculopathy; Translations: [Radiculopathy, cervical region] Onset: 12-27-2022 12-27-2022 Episodic Syncope (20 sources) Syncope; Translations: [Syncope and collapse] Onset: 07-28-2024 Resolved: 09-17-2024 08-08-2024 Episodic Unclassified (2 sources) Never smoked tobacco; Translations: [Never a smoker] Unclassified (4 sources) Onset: 09-20-2023 Resolved: 01-15-2025 09-20-2023 Results Test Name Value Interpretation Reference Range Facility Urinalysis macro (dipstick) panel (U)on 04-01-2025 Bilirubin, UA Negative Negative - 4(70) +++ mg/dL [facility] Blood, UA Negative Negative - 50 Rodri/mcL [facility] Clarity, UA Clear [facility] Color, UA Yellow [facility] Glucose, UA Negative Negative - 1999(110) ++++ mg/dL [facility] Interpretation and review of laboratory results Normal [facility] Ketones, UA Negative Negative - 160(16) ++++ mg/dL [facility] Leukocytes, UA Negative Negative - 500+++ Danilo/mcL [facility] Nitrite, UA Negative Negative - Positive [facility] pH, UA 5 5 - 9 [facility] Protein, UA Negative Negative - 1999(20) ++++ mg/dL [facility] Spec Grav, UA 1.005 1 - 1.03 [facility] Urobilinogen, UA 0.2 0.2 - 12 mg/dL [facility] ALL CKMBon 02-26-2025 [facility] CREATININE KINASE MB 2.35 ng/mL NINF - 3.60 ng/mL [facility] CKon 02-26-2025 CK [Catalytic activity/Vol] 122 U/L 39 - 308 U/L [facility] No Panel Informationon 02-26 [facility] [place] [address] Magnetic Resonance Report Signed Patient: TAURUS GARCIA MR#: [id number] : 1945 Acct:[id number] Age/Sex: 79 / M ADM Date: 02/24/25 Loc: MRI Attending Dr: Kimberly Wright NP Ordering Physician: Kimberly Wright NP Date of Service: 02/24/25 Procedure(s): MR lumbar spine wo con Accession Number(s): [id number] cc: KOMAL SCHAFFER ; Kimberly Wright NP [place] [id number] Patient Name: TAURUS GARCIA MRN: [facility]:[id number] date: 1945 Sex: M Assigned Patient Location: MRI Current Patient Location: MRI Accession/Order Number: [id number] Exam Date: 02/24/2025 19:25 Report Date: 02/24/2025 19:31 At the request of: KIMBERLY WRIGHT NP Procedure: MR lumbar spine wo con MR lumbar spine wo con 02/24/2025 2:26 PM SIGNS AND SYMPTOMS: Spinal stenosis, lumbar region with neurogenic claudication PROTOCOL: Multiplanar multisequence MR images of the lumbar spine without IV contrast COMPARISON: 12/22/2023 FINDINGS: There is 5 mm of anterolisthesis of L5 upon S1. The bones are otherwise in anatomic alignment. There is preservation of vertebral body heights. There is severe disc height loss at L1-L2, L3-L4, and L4-5. There is mild disc height loss throughout otherwise. There is Modic type I endplate edema at L2-L3 and L3-L4. The marrow signal is within normal limits, otherwise. The conus terminates at the L1-L2 intervertebral disc level. No epidural or paraspinous fluid collection is appreciated. Simple cysts are noted in the renal cortices requiring no further follow-up. At T12-L1: There is a broad-based disc bulge with facet hypertrophy and ligamentum flavum thickening. There is moderate spinal canal stenosis with moderate to severe right and moderate left neural foraminal narrowing similar to the prior exam. At L1-L2: There is a circumferential disc bulge with endplate osteophyte formation. There is facet hypertrophy with ligamentum flavum thickening contributing to moderate spinal canal narrowing with severe right and mild left neural foraminal narrowing. Is mass effect on the exiting right L1 nerve roots, similar to the prior exam. At L2-L3: There is a broad-based disc bulge with facet hypertrophy and ligamentum flavum thickening. There is moderate to severe spinal canal stenosis with moderate right and mild left neural foraminal stenosis. At L3-L4: There is a circumferential disc bulge with facet hypertrophy and ligamentum flavum thickening. There is severe narrowing of the spinal canal with mass effect on the traversing nerve roots of the cauda equina. This is worse when compared to the prior exam. There is moderate to severe bilateral neural foraminal stenosis which is also slightly worse. At L4-L5: There is a circumferential disc bulge with facet hypertrophy and ligamentum flavum thickening contributing to severe narrowing of spinal canal with mass effect on the traversing nerve roots of the cauda equina. There is severe left and moderate right neural foraminal stenosis similar to the prior exam with similar mass effect on the exiting left L4 nerve roots. At L5-S1: There is a broad-based disc bulge with endplate osteophyte formation and facet hypertrophy. There is mild spinal canal stenosis with severe left neural foraminal narrowing. Is mass effect on the exiting left L5 nerve roots. MR/MR lumbar spine wo con IMPRESSION: At L3-L4: There is a circumferential disc bulge with facet hypertrophy and ligamentum flavum thickening. There is severe narrowing of the spinal canal with mass effect on the traversing nerve roots of the cauda equina. This is worse when compared to the prior exam. There is moderate to severe bilateral neural foraminal stenosis which is also slightly worse. At L4-L5: There is a circumferential disc bulge with facet hypertrophy and ligamentum flavum thickening contributing to severe narrowing of spinal canal with mass effect on the traversing nerve roots of the cauda equina. There is severe left and moderate right neural foramina (more content not included)... [facility] Radiology, Radiologangelo sidhu MD - 02/24/2025 [place] [address] Magnetic Resonance Report Signed Patient: TAURUS GARCIA MR#: [id number] : 1945 Acct:[id number] Age/Sex: 79 / M ADM Date: 02/24/25 Loc: MRI Attending Dr: Kimberly Wright NP Ordering Physician: Kimberly Wright NP Date of Service: 02/24/25 Procedure(s): MR lumbar spine wo con Accession Number(s): [id number] cc: KOMAL SCHAFFER ; Kimberly Wright NP [place] [address] Patient Name: TAURUS GARCIA MRN: [facility]:[id number] date: 1945 Sex: M Assigned Patient Location: MRI Current Patient Location: MRI Accession/Order Number: [id number] Exam Date: 02/24/2025 19:25 Report Date: 02/24/2025 19:31 At the request of: KIMBERLY WRIGHT NP Procedure: MR lumbar spine wo con MR lumbar spine wo con 02/24/2025 2:26 PM SIGNS AND SYMPTOMS: Spinal stenosis, lumbar region with neurogenic claudication PROTOCOL: Multiplanar multisequence MR images of the lumbar spine without IV contrast COMPARISON: 12/22/2023 FINDINGS: There is 5 mm of anterolisthesis of L5 upon S1. The bones are otherwise in anatomic alignment. There is preservation of vertebral body heights. There is severe disc height loss at L1-L2, L3-L4, and L4-5. There is mild disc height loss throughout otherwise. There is Modic type I endplate edema at L2-L3 and L3-L4. The marrow signal is within normal limits, otherwise. The conus terminates at the L1-L2 intervertebral disc level. No epidural or paraspinous fluid collection is appreciated. Simple cysts are noted in the renal cortices requiring no further follow-up. At T12-L1: There is a broad-based disc bulge with facet hypertrophy and ligamentum flavum thickening. There is moderate spinal canal stenosis with moderate to severe right and moderate left neural foraminal narrowing similar to the prior exam. At L1-L2: There is a circumferential disc bulge with endplate osteophyte formation. There is facet hypertrophy with ligamentum flavum thickening contributing to moderate spinal canal narrowing with severe right and mild left neural foraminal narrowing. Is mass effect on the exiting right L1 nerve roots, similar to the prior exam. At L2-L3: There is a broad-based disc bulge with facet hypertrophy and ligamentum flavum thickening. There is moderate to severe spinal canal stenosis with moderate right and mild left neural foraminal stenosis. At L3-L4: There is a circumferential disc bulge with facet hypertrophy and ligamentum flavum thickening. There is severe narrowing of the spinal canal with mass effect on the traversing nerve roots of the cauda equina. This is worse when compared to the prior exam. There is moderate to severe bilateral neural foraminal stenosis which is also slightly worse. At L4-L5: There is a circumferential disc bulge with facet hypertrophy and ligamentum flavum thickening contributing to severe narrowing of spinal canal with mass effect on the traversing nerve roots of the cauda equina. There is severe left and moderate right neural foraminal stenosis similar to the prior exam with similar mass effect on the exiting left L4 nerve roots. At L5-S1: There is a broad-based disc bulge with endplate osteophyte formation and facet hypertrophy. There is mild spinal canal stenosis with severe left neural foraminal narrowing. Is mass effect on the exiting left L5 nerve roots. MR/MR lumbar spine wo con IMPRESSION: At L3-L4: There is a circumferential disc bulge with facet hypertrophy and ligamentum flavum thickening. There is severe narrowing of the spinal canal with mass effect on the traversing nerve roots of the cauda equina. This is worse when compared to the prior exam. There is moderate to severe bilateral neural foraminal stenosis which is also slightly worse. At L4-L5: There is a circumferential disc bulge with facet hypertrophy and ligamentum flavum thickening contributing to severe narrowing of spinal canal with mass effect on the traversing nerve roots of the cauda equina. There is severe left and moderate right neural foraminal stenosis similar to the prior exam with similar mass effect on the exiting left L4 nerve roots. At L5-S1: There is a broad-based disc bulge with endplate osteophyte formation and facet hypertrophy. There is mild spinal canal stenosis with severe left neural foraminal narrowing. Is mass effect on the exiting left L5 nerve roots. Impression dictated by: Mihai Menjivar M.D. 02/24/2025 7:31 PM Dictation Location: [id number] Electronically authenticated by: [id number] Y Date: 02/24/2025 19:31 Dictated By: Mihai Menjivar M.D. Signed By: 02/24/251933 DD/ 30 TD/TT: Transcriptio (more content not included)... [facility] Radiology Study observation (narrative) [facility] MR LUMBAR SPINE WO CONOrdere d By: Radiologist Radiology on 02-24-2025 [facility] Work Phone: XR LUMBAR SPINE 6V W BENDING on 02-24-2025 [place] [address] XRay Report Signed Patient: TAURUS GARCIA MR#: [id number] : 1945 Acct:[id number] Age/Sex: 79 / M ADM Date: 02/24/25 Loc: MRI Attending Dr: Kimberly Wrihgt NP Ordering Physician: Kimberly Wright NP Date of Service: 02/24/25 Procedure(s): XR lumbar spine 6V w bending Accession Number(s): [id number] cc: KOMAL SCHAFFER ; Kimberly Wright NP [place] [id number] Patient Name: TAURUS GARCIA MRN: [id number] date: 1945 Sex: M Assigned Patient Location: MRI Current Patient Location: MRI Accession/Order Number: [id number] Exam Date: 02/24/2025 16:24 Report Date: 02/24/2025 16:27 At the request of: KIMBERLY WRIGHT NP Procedure: XR lumbar spine 6V w bending 6 views Lumbar Spinewith bending HISTORY: Chronic low back pain. Bilateral leg weakness COMPARISON: None POSTSURGICAL CHANGES: None BONY ALIGNMENT: Scoliosis HYPERMOBILITY:No hypermobility LISTHESIS:Mild degenerative listhesis FRACTURE: None DEGENERATIVE CHANGES: Extensive multilevel spondylosis and facet degeneration SOFT TISSUES: Atherosclerosis BONY MINERALIZATION:Decreased XR/XR lumbar spine 6V w bending IMPRESSION: No hypermobility. Extensive multilevel degenerative changes. Scoliosis. Decreased bony mineralization. Impression dictated by: Aaron Mock M.D. 02/24/2025 4:27 PM Dictation Location: [place] [address] Electronically authenticated by: [id number] Y Date: 02/24/2025 16:27 Dictated By: Aaron Mock D.O. Signed By: 02/24/251628 DD/ 26 TD/TT: Dance Teacher: [facility] Radiology, Radiologi MD nahum - 02/24/2025 [place] [address] XRay Report Signed Patient: TAURUS GARCIA MR#: [id number] : 1945 Acct:[id number] Age/Sex: 79 / M ADM Date: 02/24/25 Loc: MRI Attending Dr: Kimberly Wright NP Ordering Physician: Kimberly Wright NP Date of Service: 02/24/25 Procedure(s): XR lumbar spine 6V w bending Accession Number(s): [id number] cc: KOMAL SCHAFFER ; Kimberly Wright NP [place] [id number] Patient Name: TAURUS GARCIA MRN: [facility]:[id number] date: 1945 Sex: M Assigned Patient Location: MRI Current Patient Location: MRI Accession/Order Number: [id number] Exam Date: 02/24/2025 16:24 Report Date: 02/24/2025 16:27 At the request of: KIMBERLY WRIGHT NP Procedure: XR lumbar spine 6V w bending 6 views Lumbar Spinewith bending HISTORY: Chronic low back pain. Bilateral leg weakness COMPARISON: None POSTSURGICAL CHANGES: None BONY ALIGNMENT: Scoliosis HYPERMOBILITY:No hypermobility LISTHESIS:Mild degenerative listhesis FRACTURE: None DEGENERATIVE CHANGES: Extensive multilevel spondylosis and facet degeneration SOFT TISSUES: Atherosclerosis BONY MINERALIZATION:Decreased XR/XR lumbar spine 6V w bending IMPRESSION: No hypermobility. Extensive multilevel degenerative changes. Scoliosis. Decreased bony mineralization. Impression dictated by: Aaron Mock M.D. 02/24/2025 4:27 PM Dictation Location: [place] [address] Electronically authenticated by: [id number] Y Date: 02/24/2025 16:27 Dictated By: Aaron Mock D.O. Signed By: 02/24/251628 DD/ 26 TD/TT: Dance Teacher: [facility] Radiology Study observation (narrative) [facility] XR LUMBAR SPINE 6V W BENDING Ordered By: Radiologist Radiology on 02-24-2025 [facility] [employer] Work Phone: Complete Blood Count Auto Di ffon 02-14-2025 Basophils (Bld) [#/Vol] 0.1 10*3/uL Normal 0.0-0.2 [facility] Comment on above: Result Comment: PERF ORMED BY:[address] [place], [place] [id number] MEDICAL DIRECTORJIMENA RICHARDSON M.D. Performed By: #### C BC, CMP, MG ####[place] [id number] [facility] Basophils/100 WBC (Bld) 1.4 % Normal . [facility] Comment on above: Performed By: #### C BC, CMP, MG ####[facility] [place] [id number] [facility] Eosinophils (Bld) [#/Vol] 0.1 10*3/uL Normal 0.0-0.45 [facility] Comment on above: Performed By: #### C BC, CMP, MG ####[address] [address] [facility] Eosinophils/100 WBC (Bld) 1.5 % Normal . [facility] Comment on above: Performed By: #### C BC, CMP, MG ####[address] Erythrocyte distribution width (RBC) [Ratio] 16.8 % High 12.0-14.8 [facility] Comment on above: Performed By: #### C BC, CMP, MG ####[address] Hematocrit (Bld) [Volume fraction] 39.7 % Normal 38.8-50.0 [facility] Comment on above: Performed By: #### C BC, CMP, MG ####[address] Hemoglobin (Bld) [Mass/Vol] 13.3 g/dL Normal 13.0-17.0 [facility] Comment on above: Performed By: #### C BC, CMP, MG ####[address] Lymphocytes (Bld) [#/Vol] 1.3 10*3/uL Normal 1.00-4.8 [facility] Comment on above: Performed By: #### C BC, CMP, MG ####[address] Lymphocytes/100 WBC (Bld) 19.9 % Normal . [facility] Comment on above: Performed By: #### C BC, CMP, MG ####[address] MCH (RBC) [Entitic mass] 30.4 pg Normal 27.5-35.2 [facility] Comment on above: Performed By: #### C BC, CMP, MG ####[place] [id number] [facility] MCV (RBC) [Entitic vol] 90.5 fL Normal 83.5-101 [facility] Comment on above: Performed By: #### C BC, CMP, MG ####[address] Mean Corpuscular HGB Conc 33.6 g/dL Normal 32.5-35.6 [facility] Comment on above: Performed By: #### C BC, CMP, MG ####[address] Monocytes (Bld) [#/Vol] 0.9 10*3/uL High 0.0-0.8 [facility] Comment on above: Performed By: #### C BC, CMP, MG ####[address] Monocytes/100 WBC (Bld) 13.8 % Normal . [facility] Comment on above: Performed By: #### C BC, CMP, MG ####[address] Neutrophils (Bld) [#/Vol] 4.1 10*3/uL Normal 1.8-7.7 [facility] Comment on above: Performed By: #### C BC, CMP, MG ####[address] Neutrophils/100 WBC (Bld) 63.4 % Normal . [facility] Comment on above: Performed By: #### C BC, CMP, MG ####[address] NRBC% 0.1 /100{WBC} Normal 0-0.5 [facility] Comment on above: Performed By: #### C BC, CMP, MG ####[address] Platelet mean volume (Bld) [Entitic vol] 8.5 fL Normal 6.6-10.1 [facility] Comment on above: Performed By: #### C BC, CMP, MG ####[address] Platelets (Bld) [#/Vol] 182 10*3/uL Normal 150-450 [facility] Comment on above: Performed By: #### C BC, CMP, MG ####[address] RBC (Bld) [#/Vol] 4.39 10*6/uL Normal 3.90-5.60 [facility] Comment on above: Performed By: #### C BC, CMP, MG ####[address] WBC (Bld) [#/Vol] 6.5 10*3/uL Normal 4.1-10.5 [facility] Comment on above: Performed By: #### C BC, CMP, MG ####[address] White Blood Count 6.5 [CFU]/mL Normal 4.1-10.5 [facility] Comment on above: Performed By: #### C BC, CMP, MG ####[address] Comprehensive Metabolic Pane rc 02-14-2025 Albumin [Mass/Vol] 3.4 g/dL Low 3.5-5.7 [facility] Comment on above: Performed By: #### C BC, CMP, MG ####[address] Albumin/Globulin [Mass ratio] 1.5 {ratio} Normal [facility] Comment on above: Performed By: #### C BC, CMP, MG ####[address] ALP [Catalytic activity/Vol] 49 U/L Normal 34-104 [facility] Comment on above: Performed By: #### C BC, CMP, MG ####[address] ALT [Catalytic activity/Vol] 16 U/L Normal 7-52 [facility] Comment on above: Performed By: #### C BC, CMP, MG ####[address] Anion gap [Moles/Vol] 12.1 mmol/L Normal 6.0-15.0 [facility] Comment on above: Performed By: #### C BC, CMP, MG ####[address] AST [Catalytic activity/Vol] 22 U/L Normal 13-39 [facility] Comment on above: Performed By: #### C BC, CMP, MG ####[place] [id number] [facility] Bilirubin [Mass/Vol] 1.0 mg/dL Normal 0.3-1.0 [facility] Comment on above: Performed By: #### C BC, CMP, MG ####[address] Calcium [Mass/Vol] 8.7 mg/dL Normal 8.6-10.3 [facility] Comment on above: Performed By: #### C BC, CMP, MG ####[address] Chloride [Moles/Vol] 104 mmol/L Normal 98-107 [facility] Comment on above: Performed By: #### C BC, CMP, MG ####[address] CO2 [Moles/Vol] 27.7 mmol/L Normal 21.0-31.0 [facility] Comment on above: Performed By: #### C BC, CMP, MG ####[address] Creatinine [Mass/Vol] 1.37 mg/dL High 0.70-1.30 [facility] Comment on above: Performed By: #### C BC, CMP, MG ####[place] [id number] [facility] Creatinine Clr Calc Pharmacy 57.23 Normal [facility] Comment on above: Performed By: #### C BC, CMP, MG ####[place] [id number] [facility] GFR/1.73 sq M.predicted MDRD (S/P/Bld) [Vol rate/Area] 51.824 mL/min/{1.73_m2} Normal [facility] Comment on above: Performed By: #### C BC, CMP, MG ####[address] Globulin (S) [Mass/Vol] 2.3 g/dL Normal [facility] Comment on above: Performed By: #### C BC, CMP, MG ####[address] Glucose [Mass/Vol] 110 mg/dL High 70-100 [facility] Comment on above: Result Comment: [facility] Glucose Reference Range is dependent on time and content of last meal. Glucose of more than 200 mg/dL in a nonstressed, ambulatory subject supports the diagnosis of Diabetes Mellitus. ADA recommended reference range Performed By: #### C BC, CMP, MG ####[address] Potassium [Moles/Vol] 3.8 mmol/L Normal 3.5-5.1 [facility] Comment on above: Performed By: #### C BC, CMP, MG ####[address] Protein [Mass/Vol] 5.7 g/dL Low 6.4-8.9 [facility] Comment on above: Performed By: #### C BC, CMP, MG ####[address] Sodium [Moles/Vol] 140 mmol/L Normal 136-145 [facility] Comment on above: Performed By: #### C BC, CMP, MG ####[address] Urea nitrogen [Mass/Vol] 21 mg/dL Normal 7-25 [facility] Comment on above: Performed By: #### C BC, CMP, MG ####[place] [phone] [facility] Magnesiumon 02-14-2025 Magnesium [Mass/Vol] 1.8 mg/dL Low 1.9-2.7 [facility] Comment on above: Result Comment: PERF ORMED BY:[address] [place] [id number] MEDICAL DIRECTORJIMENA RICHARDSON M.D. Performed By: #### C BC, CMP, MG ####[place] [id number] [place] [phone] [facility] Alanine aminotransferase [En zymatic activity/volume] in Serum or PlasmaOrdered By: Kathleenwarner Browningb on 02-13-2025 ALT [Catalytic activity/Vol] 16 U/L Normal 7-52 [facility] Comment on above: Performed By: #### C MP, CBC, HS TROP, TSH3, MG ####[place] [address] [place] [phone] [facility] Albumin [Mass/volume] in Ser um or Plasma by Bromocresol green (BCG) dye binding methoOrdered By: Kathleen Browningb on 02-13-2025 Albumin BCG dye [Mass/Vol] 3.5 g/dL 3.5-5.7 [facility] Alkaline phosphatase [Enzyma tic activity/volume] in Serum or PlasmaOrdered By: Kathleenwarner Browningb on 02-13-2025 ALP [Catalytic activity/Vol] 48 U/L Normal 34-104 [facility] Comment on above: Performed By: #### C MP, CBC, HS TROP, TSH3, MG ####[address] Appearance of UrineOrdered B y: Kathleen Parker on 02-13-2025 Appearance (U) Clear Normal Clear [facility] Comment on above: Order Comment: Name Collection Type:: Voided Performed By: #### A DDONUAPLUS ####[place] [phone] [facility] Aspartate aminotransferase [ Enzymatic activity/volume] in Serum or PlasmaOrdered By: Kathleen Browningb on 02-13-2025 AST [Catalytic activity/Vol] 24 U/L Normal 13-39 [facility] Comment on above: Performed By: #### C MP, CBC, HS TROP, TSH3, MG ####[place] [address] [place] [phone] [facility] BNP ser/plasOrdered By: Donaldo De Leon on 02-13-2025 Natriuretic peptide B (Bld) [Mass/Vol] 38.0 pg/mL Normal 5-100 [facility] Comment on above: Result Comment: PERF ORMED BY:[place] [address] [place], [place] [id number] MEDICAL CHAVEZ RICHARDSON M.D. Performed By: #### B BRIM SETTER ####[place] [phone] [facility] Bacteria [Presence] in Urine by AutomatedOrdered By: Kathleen Parker on 02-13-2025 Bacteria Auto Ql (U) Rare [HPF] None Seen [facility] Basophils [#/volume] in Bloo d by Automated countOrdered By: Kathleen Parker on 02-13-2025 Basophils (Bld) [#/Vol] 0.1 10*3/uL Normal 0.0-0.2 [facility] Comment on above: Result Comment: PERF ORMED BY:[address] [place], [place] [id number] MEDICAL CHAVEZ RICHARDSON M.D. Performed By: #### C MP, CBC, HS TROP, TSH3, MG ####[place] [phone] [facility] Basophils/100 leukocytes in Blood by Automated countOrdered By: Kathleen Parker on 02-13-2025 Basophils/100 WBC (Bld) 1.2 % Normal . [facility] Comment on above: Performed By: #### C MP, CBC, HS TROP, TSH3, MG ####[place] [phone] [facility] Bilirubin Test strip Ql (U)O rdered By: Kathleen Parker on 02-13-2025 Bilirubin Ql (U) Negative Negative [facility] Bilirubin.total [Mass/volume ] in Serum or PlasmaOrdered By: Kathleen Parker on 02-13-2025 Bilirubin [Mass/Vol] 1.1 mg/dL High 0.3-1.0 [facility] Comment on above: Performed By: #### C MP, CBC, HS TROP, TSH3, MG ####[facility] [place] [address] [facility] [address] angio neckon 02-13-2025 CT angio neck Normal [facility] CT head/brain wo conon 02-13 CT head/brain wo con Normal [facility] Calcium [Mass/volume] in Ser um or PlasmaOrdered By: Kathleen Parker on 02-13-2025 Calcium [Mass/Vol] 9.0 mg/dL Normal 8.6-10.3 [facility] Comment on above: Performed By: #### C MP, CBC, HS TROP, TSH3, MG ####[place] [address] [place] [phone] [facility] Capillary blood glucose cheo urement by glucometer (mass/volume)Ordered By: Kathleen Parker on 02-13-2025 Glucose [Mass/Vol] 105 mg/dL Normal [facility] Comment on above: Random Glucose Refer ence Range is dependent on time and content of last meal. Glucose of more than 200 mg/dL in a nonstressed, ambulatory subject supports the diagnosis of Diabetes Mellitus. Result Comment: [place] [facility] Glucose Reference Range is dependent on time and content of last meal. Glucose of more than 200 mg/dL in a nonstressed, ambulatory subject supports the diagnosis of Diabetes Mellitus.PERFORMED BY:[place] [address] [place], [place] [id number] MEDICAL DIRECTORJIMENA RICHARDSON M.D. Performed By: #### G ANASTASIIA ####Point of Care testing, Carbon dioxide, total [Moles /volume] in Serum or PlasmaOrdered By: Kathleen Parker on 02-13-2025 CO2 [Moles/Vol] 29.4 mmol/L Normal 21.0-31.0 [facility] Comment on above: Performed By: #### C MP, CBC, HS TROP, TSH3, MG ####[place] [address] [place] [address] [facility] Chloride [Moles/volume] in S [place] or PlasmaOrdered By: Kathleen Parker on 02-13-2025 Chloride [Moles/Vol] 105 mmol/L Normal 98-107 [facility] Comment on above: Performed By: #### C MP, CBC, HS TROP, TSH3, MG ####[address] Color of Urine by AutoOrdere d By: Kathleen Parker on 02-13-2025 Color (U) Yellow Normal Yellow [facility] Comment on above: Order Comment: Name Collection Type:: Voided Performed By: #### A DDONUAPLUS ####[address] Complete Blood Count Auto Di ffon 02-13-2025 Mean Corpuscular HGB Conc 33.3 g/dL Normal 32.5-35.6 [facility] Comment on above: Performed By: #### C MP, CBC, HS TROP, TSH3, MG ####[address] Monocytes/100 WBC (Bld) 20.92 % High 0.00-20.00 [facility] Comment on above: Result Comment: For adults in ED, MDW > 20.0 may be associated with a higher risk of sepsis during the first 12 hrs of hospital admission Performed By: #### C MP, CBC, HS TROP, TSH3, MG ####[address] NRBC% 0.0 /100{WBC} Normal 0-0.5 [facility] Comment on above: Performed By: #### C MP, CBC, HS TROP, TSH3, MG ####[address] White Blood Count 7.3 [CFU]/mL Normal 4.1-10.5 [facility] Comment on above: Performed By: #### C MP, CBC, HS TROP, TSH3, MG ####[address] Comprehensive Metabolic Pane rc 02-13-2025 Albumin [Mass/Vol] 3.5 g/dL Normal 3.5-5.7 [facility] Comment on above: Performed By: #### C MP, CBC, HS TROP, TSH3, MG ####[address] [address] [facility] Creatinine Clr Calc Pharmacy 64.21 Normal [facility] Comment on above: Performed By: #### C MP, CBC, HS TROP, TSH3, MG ####[address] [address] [facility] GFR/1.73 sq M.predicted MDRD (S/P/Bld) [Vol rate/Area] 58.980 mL/min/{1.73_m2} Normal [facility] Comment on above: Performed By: #### C MP, CBC, HS TROP, TSH3, MG ####[place] [phone] [facility] Creatinine [Mass/volume] in Serum or PlasmaOrdered By: Kathleen Parker on 02-13-2025 Creatinine [Mass/Vol] 1.23 mg/dL Normal 0.70-1.30 [facility] Comment on above: Performed By: #### C MP, CBC, HS TROP, TSH3, MG ####[address] [address] [facility] Dipstick and Microscopicon 0 02-13-2025 Bacteria,Urine Rare Normal None Seen [facility] Comment on above: Order Comment: Name Collection Type:: Voided Performed By: #### A DDONUAPLUS ####[place] [phone] [facility] Bilirubin,Urine Negative Normal Negative [facility] Comment on above: Order Comment: Name Collection Type:: Voided Performed By: #### A DDONUAPLUS ####[address] [address] [facility] Glucose Ql (U) Normal Normal Normal [facility] Comment on above: Order Comment: Name Collection Type:: Voided Performed By: #### A DDONUAPLUS ####[address] [address] [facility] Hyaline Casts,Urine None Normal 0-8 [facility] Comment on above: Order Comment: Name Collection Type:: Voided Performed By: #### A DDONUAPLUS ####[address] [address] [facility] Mucus,Urine Rare Normal [facility] Comment on above: Order Comment: Name Collection Type:: Voided Result Comment: PERF ORMED BY:[place] [address] [place], [place] [phone] MEDICAL CHAVEZ RICHARDSON M.D. Performed By: #### A DDONUAPLUS ####[place] [phone] [facility] Nitrite,Urine Negative Normal Negative [facility] Comment on above: Order Comment: Name Collection Type:: Voided Performed By: #### A DDONUAPLUS ####[place] [phone] [facility] Occult Blood,Urine 1+ Normal Negative [facility] Comment on above: Order Comment: Name Collection Type:: Voided Result Comment: PERF ORMED BY:[address] [place], [place] [phone] MEDICAL CHAVEZ RICHARDSON M.D. Performed By: #### A DDONUAPLUS ####[place] [phone] [facility] Protein,Urine Negative Normal Negative [facility] Comment on above: Order Comment: Name Collection Type:: Voided Performed By: #### A DDONUAPLUS ####[address] [address] [facility] RBC,Urine 10-19 Normal 0-4 [facility] Comment on above: Order Comment: Name Collection Type:: Voided Performed By: #### A DDONUAPLUS ####[place] [phone] [facility] Specificy [place],Urine 1.018 Normal 1.001-1.03 0 [facility] Comment on above: Order Comment: Name Collection Type:: Voided Performed By: #### A DDONUAPLUS ####[place] [phone] [facility] Squamous Epithelial Cell,Urine 1-2 Normal 0-2 [facility] Comment on above: Order Comment: Name Collection Type:: Voided Performed By: #### A DDONUAPLUS ####[place] [address] Urobilinogen,Urine Normal Normal Normal [facility] Comment on above: Order Comment: Name Collection Type:: Voided Performed By: #### A DDONUAPLUS ####[address] WBC,Urine 1-2 Normal 0-4 [facility] Comment on above: Order Comment: Name Collection Type:: Voided Performed By: #### A DDONUAPLUS ####[address] ECG 12 lead ECGon 02-13-2025 ECG 12 lead ECG Normal [facility] Eosinophils [#/volume] in Bl ood by Automated countOrdered By: Kathleen Parker on 02-13-2025 Eosinophils (Bld) [#/Vol] 0.1 10*3/uL Normal 0.0-0.45 [facility] Comment on above: Performed By: #### C MP, CBC, HS TROP, TSH3, MG ####[address] Eosinophils/100 leukocytes i n Blood by Automated countOrdered By: Kathleen Parker on 02-13-2025 Eosinophils/100 WBC (Bld) 1.0 % Normal . [facility] Comment on above: Performed By: #### C MP, CBC, HS TROP, TSH3, MG ####[address] Epithelial cells.squamous [# /area] in Urine sediment by Automated countOrdered By: Kathleen Parker on 02-13-2025 Epithelial cells.squamous Auto (Urine sed) [#/Area] 1-2 [HPF] 0-2 [facility] Erythrocyte distribution wid th [Ratio] by Automated countOrdered By: Kathleen Parker on 02-13-2025 Erythrocyte distribution width (RBC) [Ratio] 16.6 % High 12.0-14.8 [facility] Comment on above: Performed By: #### C MP, CBC, HS TROP, TSH3, MG ####[facility] [place] [address] [facility] Erythrocytes [#/area] in Uri ne sediment by Automated countOrdered By: Kathleen Parker on 02-13-2025 RBC Auto (Urine sed) [#/Area] 10-19 [HPF] High 0-4 [facility] Erythrocytes [#/volume] in B lood by Automated countOrdered By: Kathleen Parker on 02-13-2025 RBC (Bld) [#/Vol] 4.33 10*6/uL Normal 3.90-5.60 [facility] Comment on above: Performed By: #### C MP, CBC, HS TROP, TSH3, MG ####[facility] [place] [address] [facility] Glucose [Mass/volume] in Ser um or PlasmaOrdered By: Kathleen Parker on 02-13-2025 Glucose [Mass/Vol] 98 mg/dL Normal 70-100 [facility] Comment on above: ADA recommended refe rence rangeRandom Glucose Reference Range is dependent on time and content of last meal. Glucose of more than 200 mg/dL in a nonstressed, ambulatory subject supports the diagnosis of Diabetes Mellitus. Result Comment: [place] [facility] Glucose Reference Range is dependent on time and content of last meal. Glucose of more than 200 mg/dL in a nonstressed, ambulatory subject supports the diagnosis of Diabetes Mellitus. ADA recommended reference range Performed By: #### C MP, CBC, HS TROP, TSH3, MG ####[facility] [place] [address] [place] Glucose [Mass/volume] in Uri ne by Test stripOrdered By: Kathleen Parker on 02-13-2025 Glucose Test strip (U) [Mass/Vol] Normal mg/dL Normal [facility] Hematocrit [Volume Fraction] of Blood by Automated countOrdered By: Kathleen Parker on 02-13-2025 Hematocrit (Bld) [Volume fraction] 39.2 % Normal 38.8-50.0 [facility] Comment on above: Performed By: #### C MP, CBC, HS TROP, TSH3, MG ####[facility] [address] [place], [place] [id number] [facility] Hemoglobin Test strip Ql (U) Ordered By: Kathleen Parker on 02-13-2025 Hemoglobin Ql (U) 1+ High Negative [facility] Hemoglobin [Mass/volume] in BloodOrdered By: Kathleen Parker on 02-13-2025 Hemoglobin (Bld) [Mass/Vol] 13.1 g/dL Normal 13.0-17.0 [facility] Comment on above: Performed By: #### C MP, CBC, HS TROP, TSH3, MG ####[address] Hyaline casts [#/area] in Ur ine sediment by Automated countOrdered By: Kathleen Parker on 02-13-2025 Hyaline casts Auto (Urine sed) [#/Area] None [LPF] 0-8 [facility] Ketones [Presence] in Urine by Test stripOrdered By: Kathleen Parker on 02-13-2025 Ketones Ql (U) 1+ Normal Negative [facility] Comment on above: Order Comment: Name Collection Type:: Voided Performed By: #### A DDONUAPLUS ####[address] Leukocyte esterase [Presence ] in Urine by Test stripOrdered By: Kathleen Parker on 02-13-2025 Leukocyte esterase Test strip Ql (U) Negative Normal Negative [facility] Comment on above: Order Comment: Name Collection Type:: Voided Performed By: #### A DDONUAPLUS ####[place] [address] [place] Leukocytes [#/area] in Urine sediment by Automated countOrdered By: Kathleen Parker on 02-13-2025 WBC Auto (Urine sed) [#/Area] 1-2 [HPF] 0-4 [facility] Leukocytes [#/volume] correc blessing for nucleated erythrocytes in Blood by Automated counOrdered By: Kathleen Parker on 02-13-2025 WBC corrected for nucl RBC Auto (Bld) [#/Vol] 7.3 10*3/uL 4.1-10.5 [facility] Leukocytes [#/volume] in Blo od by Automated countOrdered By: Kathleen Parker on 02-13-2025 WBC (Bld) [#/Vol] 7.3 10*3/uL Normal 4.1-10.5 [facility] Comment on above: Performed By: #### C MP, CBC, HS TROP, TSH3, MG ####[address] Lymphocytes [#/volume] in Bl ood by Automated countOrdered By: Kathleen Parker on 02-13-2025 Lymphocytes (Bld) [#/Vol] 1.2 10*3/uL Normal 1.00-4.8 [facility] Comment on above: Performed By: #### C MP, CBC, HS TROP, TSH3, MG ####[address] Lymphocytes/100 leukocytes i n Blood by Automated countOrdered By: Kathleen Parker on 02-13-2025 Lymphocytes/100 WBC (Bld) 16.7 % Normal . [facility] Comment on above: Performed By: #### C MP, CBC, HS TROP, TSH3, MG ####[address] MCH [Entitic mass] by Automa blessing countOrdered By: Kathleen Parker on 02-13-2025 MCH (RBC) [Entitic mass] 30.2 pg Normal 27.5-35.2 [facility] Comment on above: Performed By: #### C MP, CBC, HS TROP, TSH3, MG ####[address] MCHC Auto (RBC) [Mass/Vol]Or dered By: Kathleen Parker on 02-13-2025 MCHC (RBC) [Mass/Vol] 33.3 g/dL 32.5-35.6 [facility] MCV [Entitic volume] by Auto mated countOrdered By: Kathleen Parker on 02-13-2025 MCV (RBC) [Entitic vol] 90.6 fL Normal 83.5-101 [facility] Comment on above: Performed By: #### C MP, CBC, HS TROP, TSH3, MG ####[place] [address] [address] Magnesium [Mass/volume] in S [place] or PlasmaOrdered By: Kathleenwarner Parker on 02-13-2025 Magnesium [Mass/Vol] 1.9 mg/dL Normal 1.9-2.7 [facility] Comment on above: Performed By: #### C MP, CBC, HS TROP, TSH3, MG ####[address] Monocyte distribution width [Entitic volume] in Blood by AutomatedOrdered By: Kathleen Parker on 02-13-2025 Monocyte distribution width Auto (Bld) [Entitic vol] 20.92 % High 0.00-20.00 [facility] Comment on above: For adults in ED, MD W > 20.0 may be associated with a higher risk of sepsis during the first 12 hrs of hospital admission Monocytes [#/volume] in Bloo d by Automated countOrdered By: Kathleen Parker on 02-13-2025 Monocytes (Bld) [#/Vol] 1.1 10*3/uL High 0.0-0.8 [facility] Comment on above: Performed By: #### C MP, CBC, HS TROP, TSH3, MG ####[address] Monocytes/100 leukocytes in Blood by Automated countOrdered By: Kathleen Parker on 02-13-2025 Monocytes/100 WBC (Bld) 15.5 % Normal . [facility] Comment on above: Performed By: #### C MP, CBC, HS TROP, TSH3, MG ####[address] Mucus [Presence] in Urine by AutomatedOrdered By: Kathleen Parker on 02-13-2025 Mucus Auto Ql (U) Rare [LPF] [facility] Neutrophils [#/volume] in Bl ood by Automated countOrdered By: Kathleen Parker on 02-13-2025 Neutrophils (Bld) [#/Vol] 4.8 10*3/uL Normal 1.8-7.7 [facility] Comment on above: Performed By: #### C MP, CBC, HS TROP, TSH3, MG ####[facility] [id number] [place] [id number] [facility] Neutrophils/100 leukocytes i n Blood by Automated countOrdered By: Kathleen Parker on 02-13-2025 Neutrophils/100 WBC (Bld) 65.6 % Normal . [facility] Comment on above: Performed By: #### C MP, CBC, HS TROP, TSH3, MG ####[facility] [id number] Nitrite Test strip Ql (U)Ord ered By: Kathleen Parker on 02-13-2025 Nitrite Ql (U) Negative Negative [facility] No Panel InformationOrdered By: Kathleen Parker on 02-13-2025 Estimated GFR (CKD-EPI) 58.980 mL/Min [facility] Creatinine Clearance (Chem 64.21 [facility] Nucleated erythrocytes [Pres ence] in Blood by Automated countOrdered By: Kathleen Parker on 02-13-2025 Nucleated RBC Auto Ql (Bld) 0.0 /100{WBC} 0-0.5 [facility] Platelet mean volume [Entiti c volume] in Blood by Automated countOrdered By: Kathleen Parker on 02-13-2025 Platelet mean volume (Bld) [Entitic vol] 8.3 fL Normal 6.6-10.1 [facility] Comment on above: Performed By: #### C MP, CBC, HS TROP, TSH3, MG ####[facility] [place] [id number] [place] Platelets [#/volume] in Bloo d by Automated countOrdered By: Kathleen Parker on 02-13-2025 Platelets (Bld) [#/Vol] 168 10*3/uL Normal 150-450 [facility] Comment on above: Performed By: #### C MP, CBC, HS TROP, TSH3, MG ####[place] [address] [address] Potassium [Moles/volume] in Serum or PlasmaOrdered By: Kathleen Keith on 02-13-2025 Potassium [Moles/Vol] 4.0 mmol/L Normal 3.5-5.1 [facility] Comment on above: Performed By: #### C MP, CBC, HS TROP, TSH3, MG ####[address] Protein Test strip (U) [Mass /Vol]Ordered By: Kathleenwarner Browningb on 02-13-2025 Protein (U) [Mass/Vol] Negative Negative [facility] Protein [Mass/volume] in Ser um or PlasmaOrdered By: Kathleen Keith on 02-13-2025 Protein [Mass/Vol] 5.7 g/dL Low 6.4-8.9 [facility] Comment on above: Performed By: #### C MP, CBC, HS TROP, TSH3, MG ####[address] Serum globulin measurement b y calculation (mass/volume)Ordered By: Kathleenwarner Browningb on 02-13-2025 Globulin (S) [Mass/Vol] 2.2 g/dL [facility] Comment on above: Performed By: #### C MP, CBC, HS TROP, TSH3, MG ####[address] Serum or plasma albumin/glob ulin mass ratioOrdered By: Kathleen Keith on 02-13-2025 Albumin/Globulin [Mass ratio] 1.6 {ratio} [facility] Comment on above: Performed By: #### C MP, CBC, HS TROP, TSH3, MG ####[address] Serum or plasma anion gap de terminationOrdered By: Kathleen Keith on 02-13-2025 Anion gap [Moles/Vol] 9.6 mmol/L Normal 6.0-15.0 [facility] Comment on above: Performed By: #### C MP, CBC, HS TROP, TSH3, MG ####[address] [address] [facility] Sodium [Moles/volume] in Ser um or PlasmaOrdered By: Kathleen Keith on 02-13-2025 Sodium [Moles/Vol] 140 mmol/L Normal 136-145 [facility] Comment on above: Performed By: #### C MP, CBC, HS TROP, TSH3, MG ####[address] [address] [facility] Specific gravity Test strip (U) [Rel density]Ordered By: Kathleen Keith on 02-13-2025 Specific gravity (U) [Rel density] 1.018 1.001-1.03 0 [facility] Thyrotropin [Units/volume] i n Serum or PlasmaOrdered By: Kathleen Parker on 02-13-2025 TSH Qn 1.43 m[IU]/L Normal 0.45-5.33 [facility] Comment on above: Result Comment: PERF ORMED BY:[address] [place], [place] [phone] [facility]ICAL CHAVEZ RICHARDSON M.D. Performed By: #### C MP, CBC, HS TROP, TSH3, MG ####[address] [address] [facility] Troponin I High Sensitivityo n 02-13-2025 Troponin I High Sensitivity 10 Normal 0-20 [facility] Comment on above: Result Comment: The Troponin units of report have been changed to meet the Chest Pain Accreditation requirement, element EC5.M1l2. Troponin units are changed from pg/ml to ng/L. Also, the decimal is removed and results are in whole numbers.PERFORMED BY:[address] LIUROTHSCH[place], [place] [phone] MEDICAL CHAVEZ RICHARDSON M.D. Performed By: #### C MP, CBC, HS TROP, TSH3, MG ####[address] [address] [place] Troponin I.cardiac [Mass/vol ume] in Serum or Plasma by Detection limit <= 0.01 ng/mLOrdered By: Kathleen Parker on 02-13-2025 Troponin I.cardiac DL <= 0.01 ng/mL [Mass/Vol] 10 ng/L 0-20 [facility] Comment on above: The Troponin units o f report have been changed to meet the Chest Pain Accreditation requirement, element EC5.M1l2. Troponin units are changed from pg/ml to ng/L. Also, the decimal is removed and results are in whole numbers. Urea nitrogen [Mass/volume] in Serum or PlasmaOrdered By: Kathleen Parker on 02-13-2025 Urea nitrogen [Mass/Vol] 24 mg/dL Normal 03-14 [facility] Comment on above: Performed By: #### C MP, CBC, HS TROP, TSH3, MG ####[facility] [place] [address] Urobilinogen Test strip (U) [Mass/Vol]Ordered By: Kathleen Parker on 02-13-2025 Urobilinogen (U) [Mass/Vol] Normal mg/dL Normal [facility] X-ray reportOrdered By: See Diallo on 02-13-2025 Study report [facility] [place] [address] XRay Report Signed Patient: Taurus Garcia MR#: [id number] : 1945 Acct:[id number] Age/Sex: 79 / M ADM Date: 5 Loc: ER Room: Type: [facility] ER Attending Dr: Copies to: Kathleen Parker APRN~ Ordering Provider: Kathleen Parker APRN Date of Service: 02/13/25 XR/XR chest 2V*: Weakness Chest 2 views CLINICAL HISTORY: Weakness for 2 days COMPARISON: Chest 09/11/2024 FINDINGS: Heart normal in size. Lungs are clear. No free air. XR/XR chest 2V* IMPRESSION: NO ACUTE CARDIOPULMONARY ABNORMALITY. Impression dictated by: Silvestre Diallo Jr., D.ORaul 02/13/2025 10:06 AM Dictation Location: [place] [address] Transcribed By: [facility] 02/13/25 100 Dictated By: Silvestre Diallo Jr, DO 02/13/25 100 Signed By: 02/13/25 1006 [facility] XR chest 2V*on 02-13-2025 XR chest 2V* Normal [facility] pH of Urine by Test stripOrd ered By: Kathleen Parker on 02-13-2025 pH (U) 5.5 [pH] Normal 5.0-9.0 [facility] Comment on above: Order Comment: Name Collection Type:: Voided Performed By: #### A DDONUAPLUS ####[facility] [id number] [place] [id number] [facility] XR Foot - left 3 [facility] Result: Notable medial distal tuft fracture of the distal phalanx with slight displacement [facility] Radiology Study observation (narrative) [facility] BASIC METABOLIC PANEL WITH A NION GAPon 11-09-2024 BUN/CREATININE RATIO SEE NOTE: Normal - [facility] Comment on above: Result Comment: Not Reported: BUN and Creatinine are within reference range. Performed By: #### 9 7158 #### [facility] [place] [address] Superintendent Building: Daniele Carlson MD Calcium [Mass/Vol] 9.1 mg/dL Normal 8.6-10.3 [facility] Comment on above: Performed By: #### 9 6578 #### [facility] [place] [address] Superintendent Building: Daniele Carlson MD Chloride [Moles/Vol] 101 mmol/L Normal 98-110 [facility] Comment on above: Performed By: #### 9 1048 #### [facility] [place] [address] Superintendent Building: Daniele Carlson MD CO2 [Moles/Vol] 29 mmol/L Normal 20-32 [facility] Comment on above: Performed By: #### 9 4378 #### [facility] [address] [place] [address] Superintendent Building: Daniele Carlson MD Creatinine [Mass/Vol] 1.03 mg/dL Normal 0.70-1.[address] [facility] Comment on above: Performed By: #### 9 2498 #### [facility] [address], [address] [place] [address] Superintendent Building: Daniele Carlson MD ELECTROLYTE BALANCE 12 mmol/L (calc) Normal 7-17 [facility] Comment on above: Performed By: #### 9 2498 #### [facility] [address], [address] [place] [address] Superintendent Building: Daniele Carlson MD GFR/1.73 sq M.predicted among non-blacks MDRD (S/P/Bld) [Vol rate/Area] 73 mL/min/{1.73_m2} Normal > OR = 60 [facility] Comment on above: Performed By: #### 9 2498 #### [facility] [address], [address] [place] [address] Superintendent Building: Daniele Carlson MD Glucose [Mass/Vol] 169 mg/dL High 65-99 [facility] Comment on above: Result Comment: Fasting reference interval For someone without known diabetes, a glucose value >125 mg/dL indicates that they may have diabetes and this should be confirmed with a follow-up test. Performed By: #### 9 2498 #### [facility] [address], [address] [place] [address] Superintendent Building: Daniele Carlson MD Potassium [Moles/Vol] 3.6 mmol/L Normal 3.5-5.[address] [facility] Comment on above: Performed By: #### 9 2498 #### [facility] [place] [address] Superintendent Building: Daniele Carlson MD Sodium [Moles/Vol] 142 mmol/L Normal 135-146 [facility] Comment on above: Performed By: #### 9 2498 #### [facility] [address] [address] Superintendent Building: Daniele Carlson MD Urea nitrogen [Mass/Vol] 17 mg/dL Normal 7-25 [facility] Comment on above: Performed By: #### 9 2498 #### [facility] of [place] [address] Superintendent Building: Daniele Carlson MD COMPREHENSIVE METABOLIC PANE [facility] 11-06-2024 Albumin [Mass/Vol] 4.1 g/dL Normal 3.6-5.1 [facility] Comment on above: Order Comment: FASTI NG:NO FASTING: NO Performed By: #### 1 0231 #### [facility] of [place] [address] Superintendent Building: Daniele Carlson MD Albumin/Globulin [Mass ratio] 1.8 {ratio} Normal 1.0-2.5 [facility] Comment on above: Order Comment: FASTI NG:NO FASTING: NO Performed By: #### 1 0231 #### [facility] of [place] [address] Superintendent Building: Daniele Carlson MD ALP [Catalytic activity/Vol] 70 U/L Normal 35-144 [facility] Comment on above: Order Comment: FASTI NG:NO FASTING: NO Performed By: #### 1 0231 #### [facility] [place] [address] Superintendent Building: Daniele Carlson MD ALT [Catalytic activity/Vol] 27 U/L Normal 9-46 [facility] Comment on above: Order Comment: FASTI NG:NO FASTING: NO Performed By: #### 1 0231 #### [facility] [place] [address] Superintendent Building: Daniele Carlson MD AST [Catalytic activity/Vol] 23 U/L Normal 10-35 [facility] Comment on above: Order Comment: FASTI NG:NO FASTING: NO Performed By: #### 1 0231 #### [facility] [place] [address] Superintendent Building: Daniele Carlson MD Bilirubin [Mass/Vol] 0.8 mg/dL Normal 0.2-1.2 [facility] Comment on above: Order Comment: FASTI NG:NO FASTING: NO Performed By: #### 1 0231 #### [facility] [address], [address] [place] [address] Superintendent Building: Daniele Carlson MD BUN/CREATININE RATIO SEE NOTE: Normal 6-22 [facility] Comment on above: Order Comment: FASTI NG:NO FASTING: NO Result Comment: Not Reported: BUN and Creatinine are within reference range. Performed By: #### 1 0231 #### [facility] [address], [address] [place] [address] Superintendent Building: Daniele Carlson MD Calcium [Mass/Vol] 9.3 mg/dL Normal 8.6-10.3 [facility] Comment on above: Order Comment: FASTI NG:NO FASTING: NO Performed By: #### 1 0231 #### [facility] [address], [address] [place] [address] Superintendent Building: Daniele Carlson MD Chloride [Moles/Vol] 102 mmol/L Normal 98-110 [facility] Comment on above: Order Comment: FASTI NG:NO FASTING: NO Performed By: #### 1 0231 #### [facility] [place] [address] Superintendent Building: Daniele Carlson MD CO2 [Moles/Vol] 27 mmol/L Normal 20-32 [facility] Comment on above: Order Comment: FASTI NG:NO FASTING: NO Performed By: #### 1 0231 #### [facility] [address], [address] [place] [address] Superintendent Building: Daniele Carlson MD Creatinine [Mass/Vol] 1.11 mg/dL Normal 0.70-1.[address] [facility] Comment on above: Order Comment: FASTI NG:NO FASTING: NO Performed By: #### 1 0231 #### [facility] [address], [address] [place] [address] Superintendent Building: Daniele Carlson MD GFR/1.73 sq M.predicted among non-blacks MDRD (S/P/Bld) [Vol rate/Area] 67 mL/min/{1.73_m2} Normal > OR = 60 [facility] Comment on above: Order Comment: FASTI NG:NO FASTING: NO Performed By: #### 1 0231 #### [facility] [address], [address] [place] [address] Superintendent Building: Daniele Carlson MD Globulin (S) [Mass/Vol] 2.3 g/dL Normal 1.9-3.7 [facility] Comment on above: Order Comment: FASTI NG:NO FASTING: NO Performed By: #### 1 0231 #### [facility] [address], [address] [place] [address] Superintendent Building: Daniele Carlson MD Glucose [Mass/Vol] 127 mg/dL Normal 65-139 [facility] Comment on above: Order Comment: FASTI NG:NO FASTING: NO Result Comment: Non-fasting reference interval For someone without known diabetes, a glucose value >125 mg/dL indicates that they may have diabetes and this should be confirmed with a follow-up test. Performed By: #### 1 0231 #### [facility] [address], [address] [place] [address] Superintendent Building: Daniele Carlson MD Potassium [Moles/Vol] 3.5 mmol/L Normal 3.5-5.3 [facility] Comment on above: Order Comment: FASTI NG:NO FASTING: NO Performed By: #### 1 0231 #### [facility] [address], [address] [place] [address] Superintendent Building: Daniele Carlson MD Protein [Mass/Vol] 6.4 g/dL Normal 6.1-8.1 [facility] Comment on above: Order Comment: FASTI NG:NO FASTING: NO Performed By: #### 1 0231 #### [facility] [address], [address] [place] [address] Superintendent Building: Daniele Carlson MD Sodium [Moles/Vol] 143 mmol/L Normal 135-146 [facility] Comment on above: Order Comment: FASTI NG:NO FASTING: NO Performed By: #### 1 0231 #### [facility] [address] [place] [address], [address] [place] [address] Superintendent Building: Daniele Carlson MD Urea nitrogen [Mass/Vol] 17 mg/dL Normal 7-25 [facility] Comment on above: Order Comment: FASTI NG:NO FASTING: NO Performed By: #### 1 0231 #### [facility] [address] [place] [address], [address] [place] [address] Superintendent Building: Daniele Carlson MD XR Knee - bilateral 4 Viewso n 10-22-2024 [place] [address] XRay Report Signed Patient: TAURUS GARCIA MR#: [id number] : 1945 Acct:[id number] Age/Sex: 79 / M ADM Date: 10/22/24 Loc: [facility] Attending Dr: France Wyman M.D. Ordering Physician: France Wyman M.D. Date of Service: 10/22/24 Procedure(s): XR knee ARCHIE 4V Accession Number(s): [id number] cc: KOMAL SCHAFFER ; France Wyman M.D. The [place] [id number] Patient Name: TAURUS GARCIA MRN: [id number] date: 1945 Sex: M Assigned Patient Location: [facility] Current Patient Location: [facility] Accession/Order Number: [id number] Exam Date: 10/22/2024 15:22 Report Date: 10/22/2024 15:26 At the request of: FRANCE WYMAN MD Procedure: XR knee ARCHIE 4V [...] Aide Moe M.D.10/22/2024 3:26 PM Dictation Location: [place] [address] Electronically authenticated by: [id number] Y Date: 10/22/2024 15:26 Dictated By: Aide Moe M.D. Signed By: 10/22/24 1529 DD/ 1526 TD/TT: Dance Teacher: [facility] Radiology, Radiologi MD nahum - 10/22/2024 [place] [address] XRay Report Signed Patient: TAURUS GARCIA MR#: [id number] : 1945 Acct:[id number] Age/Sex: 79 / M ADM Date: 10/22/24 Loc: [facility] Attending Dr: France Wyman M.D. Ordering Physician: France Wyman M.D. Date of Service: 10/22/24 Procedure(s): XR knee ARCHIE 4V Accession Number(s): [id number] cc: KOMAL SCHAFFER ; France Wyman M.D. The [place] [address] Patient Name: TAURUS GARCIA MRN: [facility]:[id number] date: 1945 Sex: M Assigned Patient Location: [facility] Current Patient Location: [facility] Accession/Order Number: [id number] Exam Date: 10/22/2024 15:22 Report Date: 10/22/2024 15:26 At the request of: FRANCE WYMAN MD Procedure: XR knee ARCHIE 4V [...] Aide Moe M.D.10/22/2024 3:26 PM Dictation Location: [place] [address] Electronically authenticated by: [id number] Y Date: 10/22/2024 15:26 Dictated By: Aide Moe M.D. Signed By: 10/22/24 1529 DD/ 1526 TD/TT: Dance Teacher: [facility] Radiology Study observation (narrative) [facility] XR Knee - bilateral 4 ViewsO rdered By: Radiologist Radiology on 10-22-2024 [facility] Work Phone: COMPREHENSIVE METABOLIC PANE Rc 10-16-2024 Albumin [Mass/Vol] 3.9 g/dL Normal 3.6-5.1 [facility] Comment on above: Order Comment: DIFFI CULT DRAW- 10/14/2024 FASTING:YES FASTING: YES Performed By: #### 1 1921 #### [facility] [address], [address] [place] [phone] Superintendent Building: Daniele Carlson MD Albumin/Globulin [Mass ratio] 1.9 {ratio} Normal 1.0-2.5 [facility] Comment on above: Order Comment: DIFFI CULT DRAW- 10/14/2024 FASTING:YES FASTING: YES Performed By: #### 1 0451 #### [facility] [address], [address] [place] [address] Superintendent Building: Daniele Carlson MD ALP [Catalytic activity/Vol] 74 U/L Normal 35-144 [facility] Comment on above: Order Comment: DIFFI CULT DRAW- 10/14/2024 FASTING:YES FASTING: YES Performed By: #### 1 0231 #### [facility] [address], [address] [place] [address] Superintendent Building: Daniele Carlson MD ALT [Catalytic activity/Vol] 24 U/L Normal 9-46 [facility] Comment on above: Order Comment: DIFFI CULT DRAW- 10/14/2024 FASTING:YES FASTING: YES Result Comment: Your request to have a duplicate copy faxed has been acknowledged. Queued to: [phone] Performed By: #### 1 0231 #### [facility] [place] [address] Superintendent Building: Daniele Carlson MD AST [Catalytic activity/Vol] 21 U/L Normal 10-35 [facility] Comment on above: Order Comment: DIFFI CULT DRAW- 10/14/2024 FASTING:YES FASTING: YES Performed By: #### 1 0231 #### [facility] [address], [address] [place] [address] Superintendent Building: Daniele Carlson MD Bilirubin [Mass/Vol] 0.9 mg/dL Normal 0.2-1.2 [facility] Comment on above: Order Comment: DIFFI CULT DRAW- 10/14/2024 FASTING:YES FASTING: YES Performed By: #### 1 0231 #### [facility] [address], [address] [place] [address] Superintendent Building: Daniele Carlson MD BUN/CREATININE RATIO SEE NOTE: Normal 6-22 [facility] Comment on above: Order Comment: DIFFI CULT DRAW- 10/14/2024 FASTING:YES FASTING: YES Result Comment: Not Reported: BUN and Creatinine are within reference range. Performed By: #### 1 0231 #### [facility] [address], [address] [place] [address] Superintendent Building: Daniele Carlson MD Calcium [Mass/Vol] 8.6 mg/dL Normal 8.6-10.3 [facility] Comment on above: Order Comment: DIFFI CULT DRAW- 10/14/2024 FASTING:YES FASTING: YES Performed By: #### 1 0231 #### [facility] of [place] [address] Superintendent Building: Daniele Carlson MD Chloride [Moles/Vol] 104 mmol/L Normal 98-110 [facility] Comment on above: Order Comment: DIFFI CULT DRAW- 10/14/2024 FASTING:YES FASTING: YES Performed By: #### 1 0231 #### [facility] [place] [address] Superintendent Building: Daniele Carlson MD CO2 [Moles/Vol] 28 mmol/L Normal 20-32 [facility] Comment on above: Order Comment: DIFFI CULT DRAW- 10/14/2024 FASTING:YES FASTING: YES Performed By: #### 1 0231 #### [facility] [place] [address] Superintendent Building: Daniele Carlson MD Creatinine [Mass/Vol] 1.08 mg/dL Normal 0.70-1.22 [facility] Comment on above: Order Comment: DIFFI CULT DRAW- 10/14/2024 FASTING:YES FASTING: YES Performed By: #### 1 0231 #### [facility] [place] [address] Superintendent Building: Daniele Carlson MD GFR/1.73 sq M.predicted among non-blacks MDRD (S/P/Bld) [Vol rate/Area] 69 mL/min/{1.73_m2} Normal > OR = 60 [facility] Comment on above: Order Comment: DIFFI CULT DRAW- 10/14/2024 FASTING:YES FASTING: YES Performed By: #### 1 0231 #### [facility] of [place] [address] Superintendent Building: Daniele Carlson MD Globulin (S) [Mass/Vol] 2.1 g/dL Normal 1.9-3.7 [facility] Comment on above: Order Comment: DIFFI CULT DRAW- 10/14/2024 FASTING:YES FASTING: YES Performed By: #### 1 0231 #### [facility] [place] [address] Superintendent Building: Daniele Carlson MD Glucose [Mass/Vol] 111 mg/dL High 65-99 [facility] Comment on above: Order Comment: DIFFI CULT DRAW- 10/14/2024 FASTING:YES FASTING: YES Result Comment: Fasting reference interval For someone without known diabetes, a glucose value between 100 and 125 mg/dL is consistent with prediabetes and should be confirmed with a follow-up test. Performed By: #### 1 0231 #### [facility] [place] [address] Superintendent Building: Daniele Carlson MD Potassium [Moles/Vol] 3.6 mmol/L Normal 3.5-5.3 [facility] Comment on above: Order Comment: DIFFI CULT DRAW- 10/14/2024 FASTING:YES FASTING: YES Performed By: #### 1 0231 #### [facility] [place] [address] Superintendent Building: Daniele Carlson MD Protein [Mass/Vol] 6.0 g/dL Low 6.1-8.1 [facility] Comment on above: Order Comment: DIFFI CULT DRAW- 10/14/2024 FASTING:YES FASTING: YES Performed By: #### 1 0231 #### [facility] [place] [address] Superintendent Building: Daniele Carlson MD Sodium [Moles/Vol] 143 mmol/L Normal 135-146 [facility] Comment on above: Order Comment: DIFFI CULT DRAW- 10/14/2024 FASTING:YES FASTING: YES Performed By: #### 1 0231 #### [facility] [place] [address] Superintendent Building: Daniele Carlson MD Urea nitrogen [Mass/Vol] 18 mg/dL Normal 7-25 [facility] Comment on above: Order Comment: DIFFI CULT DRAW- 10/14/2024 FASTING:YES FASTING: YES Performed By: #### 1 0231 #### [facility] [address], [address] [place] [address] Superintendent Building: Daniele Carlson MD Laboratory - Hematology and Cell countson 09-17-2024 HbA1c (Bld) [Mass fraction] 6.2 % [facility] No Panel Informationon 09-17 Interpretation and review of laboratory results Abnormal [facility] Basic Metabolic Panelon 08-22 Anion gap [Moles/Vol] 8.9 mmol/L Normal 6.0-15.0 [facility] Comment on above: Performed By: #### B SUZANNE, CBC ####[place] [id number] [facility] Calcium [Mass/Vol] 8.9 mg/dL Normal 8.6-10.3 [facility] Comment on above: Performed By: #### B SUZANNE, CBC ####[place] [phone] [facility] Chloride [Moles/Vol] 106 mmol/L Normal 98-107 [facility] Comment on above: Performed By: #### B SUZANNE, CBC ####[place] [id number] [facility] CO2 [Moles/Vol] 29.7 mmol/L Normal 21.0-31.0 [facility] Comment on above: Performed By: #### B MP, CBC ####[address] [address] [facility] Creatinine [Mass/Vol] 0.97 mg/dL Normal 0.70-1.30 [facility] Comment on above: Performed By: #### B MP, CBC ####[address] [address] [facility] Creatinine Clr Calc Pharmacy 83.23 Normal [facility] Comment on above: Result Comment: PERF ORMED BY:[address] [place], [place] [id number] MEDICAL DIRECTORRHONDA MCLEAN M.D. Performed By: #### B MP, CBC ####[address] [address] [place] GFR/1.73 sq M.predicted MDRD (S/P/Bld) [Vol rate/Area] mL/min/{1.73_m2} Normal [facility] Comment on above: Performed By: #### B MP, CBC ####[place] [phone] [facility] Glucose [Mass/Vol] 108 mg/dL High 70-100 [facility] Comment on above: Result Comment: [facility] Glucose Reference Range is dependent on time and content of last meal. Glucose of more than 200 mg/dL in a nonstressed, ambulatory subject supports the diagnosis of Diabetes Mellitus. ADA recommended reference range Performed By: #### B MP, CBC ####[address] [address] [facility] Potassium [Moles/Vol] 3.6 mmol/L Normal 3.5-5.1 [facility] Comment on above: Performed By: #### B MP, CBC ####[place] [phone] [facility] Sodium [Moles/Vol] 141 mmol/L Normal 136-145 [facility] Comment on above: Performed By: #### B MP, CBC ####[address] [address] [facility] Urea nitrogen [Mass/Vol] 20 mg/dL Normal 7-25 [facility] Comment on above: Performed By: #### B MP, CBC ####[place] [phone] [place] Basophils Auto (Bld) [#/Vol] Ordered By: Denzel Zamora on 09-13-2024 Basophils (Bld) [#/Vol] Automated basophil count 0.0-0.2 [facility] Basophils/100 WBC Auto (Bld) Ordered By: Denzel Zamora on 09-13-2024 Basophils/100 WBC (Bld) Automated basophil % . [facility] Calcium [Mass/volume] in Ser um or PlasmaOrdered By: Denzel Zamora on 09-13-2024 Calcium [Mass/Vol] Calcium [Mass/volume ] in Serum or Plasma 8.6-10.3 [facility] Carbon dioxide, total [Moles /volume] in Serum or PlasmaOrdered By: Denzel Zamora on 09-13-2024 CO2 [Moles/Vol] Carbon dioxide, tota l [Moles/volume] in Serum or Plasma 21.0-31.0 [facility] Chloride [Moles/volume] in [place] or PlasmaOrdered By: Denzel Zamora on 09-13-2024 Chloride [Moles/Vol] Chloride [Moles/vol ume] in Serum or Plasma 98-107 [facility] Complete Blood Count Auto Di ffon 09-13-2024 Basophils (Bld) [#/Vol] 0.0 10*3/uL Normal 0.0-0.2 [facility] Comment on above: Result Comment: PERF ORMED BY:[address] [place], [place] [id number] MEDICAL DIRECTORRHONDA MCLEAN M.D. Performed By: #### B MP, CBC ####[address] Basophils/100 WBC (Bld) 0.4 % Normal . [facility] Comment on above: Performed By: #### B MP, CBC ####[address] Eosinophils (Bld) [#/Vol] 0.0 10*3/uL Normal 0.0-0.45 [facility] Comment on above: Performed By: #### B MP, CBC ####[address] Eosinophils/100 WBC (Bld) 0.5 % Normal . [facility] Comment on above: Performed By: #### B MP, CBC ####[address] Erythrocyte distribution width (RBC) [Ratio] 17.1 % High 12.0-14.8 [facility] Comment on above: Performed By: #### B MP, CBC ####[address] Hematocrit (Bld) [Volume fraction] 38.2 % Low 38.8-50.0 [facility] Comment on above: Performed By: #### B MP, CBC ####[address] Hemoglobin (Bld) [Mass/Vol] 12.8 g/dL Low 13.0-17.0 [facility] Comment on above: Performed By: #### B MP, CBC ####[address] Lymphocytes (Bld) [#/Vol] 1.9 10*3/uL Normal 1.00-4.8 [facility] Comment on above: Performed By: #### B MP, CBC ####[address] Lymphocytes/100 WBC (Bld) 23.2 % Normal . [facility] Comment on above: Performed By: #### B MP, CBC ####[address] MCH (RBC) [Entitic mass] 30.6 pg Normal 27.5-35.2 [facility] Comment on above: Performed By: #### B MP, CBC ####[address] MCV (RBC) [Entitic vol] 91.5 fL Normal 83.5-101 [facility] Comment on above: Performed By: #### B MP, CBC ####[address] Mean Corpuscular HGB Conc 33.4 g/dL Normal 32.5-35.6 [facility] Comment on above: Performed By: #### B MP, CBC ####[address] Monocytes (Bld) [#/Vol] 0.8 10*3/uL Normal 0.0-0.8 [facility] Comment on above: Performed By: #### B MP, CBC ####[address] Monocytes/100 WBC (Bld) 10.5 % Normal . [facility] Comment on above: Performed By: #### B MP, CBC ####[place] [phone] [facility] Neutrophils (Bld) [#/Vol] 5.2 10*3/uL Normal 1.8-7.7 [facility] Comment on above: Performed By: #### B MP, CBC ####[address] Neutrophils/100 WBC (Bld) 65.4 % Normal . [facility] Comment on above: Performed By: #### B MP, CBC ####[address] NRBC% 0.0 /100{WBC} Normal 0-0.5 [facility] Comment on above: Performed By: #### B MP, CBC ####[address] Platelet mean volume (Bld) [Entitic vol] 8.5 fL Normal 6.6-10.1 [facility] Comment on above: Performed By: #### B MP, CBC ####[place] [phone] [facility] Platelets (Bld) [#/Vol] 217 10*3/uL Normal 150-450 [facility] Comment on above: Performed By: #### B MP, CBC ####[place] [phone] [facility] RBC (Bld) [#/Vol] 4.18 10*6/uL Normal 3.90-5.60 [facility] Comment on above: Performed By: #### B MP, CBC ####[place] [phone] [facility] WBC (Bld) [#/Vol] 8.0 10*3/uL Normal 4.1-10.5 [facility] Comment on above: Performed By: #### B MP, CBC ####[facility] [id number] [place] [address] [facility] Creatinine [Mass/volume] in Serum or PlasmaOrdered By: Denzel Zamora on 09-13-2024 Creatinine [Mass/Vol] Creatinine [Mass/v olume] in Serum or Plasma 0.70-1.30 [facility] Eosinophils Auto (Bld) [#/Vo l]Ordered By: Denzel Moyad on 09-13-2024 Eosinophils (Bld) [#/Vol] Automated eosinophil count 0.0-0.45 [facility] Eosinophils/100 WBC Auto (Bl d)Ordered By: Denzel Zamora on 09-13-2024 Eosinophils/100 WBC (Bld) Automated eosinophil % . [facility] Erythrocyte distribution wid th Auto (RBC) [Ratio]Ordered By: Denzel Zamora on 09-13-2024 Erythrocyte distribution width (RBC) [Ratio] Erythrocyte distribution width [Ratio] by Automated count High 12.0-14.8 [facility] Glucose [Mass/volume] in Ser um or PlasmaOrdered By: Denzelnahun Zamora on 09-13-2024 Glucose [Mass/Vol] Glucose [Mass/volume ] in Serum or Plasma High 70-100 [facility] Hematocrit Auto (Bld) [Volum e fraction]Ordered By: Denzel Zamora on 09-13-2024 Hematocrit (Bld) [Volume fraction] Hematocrit [Volume Fraction] of Blood by Automated count Low 38.8-50.0 [facility] Hemoglobin [Mass/volume] in BloodOrdered By: Denzelnahun Zamora on 09-13-2024 Hemoglobin (Bld) [Mass/Vol] Hemoglobin [Mass/volume] in Blood Low 13.0-17.0 [facility] Leukocytes [#/volume] correc blessing for nucleated erythrocytes in Blood by Automated counOrdered By: Denzel Moyad on 09-13-2024 WBC corrected for nucl RBC Auto (Bld) [#/Vol] Leukocytes [#/volume] corrected for nucleated erythrocytes in Blood by Automated coun 4.1-10.5 [facility] Lymphocytes Auto (Bld) [#/Vo l]Ordered By: Denzel Zamora on 09-13-2024 Lymphocytes (Bld) [#/Vol] Lymphocytes [#/volume] in Blood by Automated count 1.00-4.8 [facility] Lymphocytes/100 WBC Auto (Bl d)Ordered By: Denzel Moyad on 09-13-2024 Lymphocytes/100 WBC (Bld) Lymphocytes/100 leukocytes in Blood by Automated count . [facility] MCH Auto (RBC) [Entitic mass ]Ordered By: Denzel Moyad on 09-13-2024 MCH (RBC) [Entitic mass] MCH [Entitic mass] by Automated count 27.5-35.2 [facility] MCHC Auto (RBC) [Mass/Vol]Or dered By: Denzel Zamora on 09-13-2024 MCHC (RBC) [Mass/Vol] MCHC [Mass/volume] by Automated count 32.5-35.6 [facility] MCV Auto (RBC) [Entitic vol] Ordered By: Denzel Zamora on 09-13-2024 MCV (RBC) [Entitic vol] MCV [Entitic volume] by Automated count 83.5-101 [facility] Monocytes Auto (Bld) [#/Vol] Ordered By: Denzel Zamora on 09-13-2024 Monocytes (Bld) [#/Vol] Automated blood monocyte count 0.0-0.8 [facility] Monocytes/100 WBC Auto (Bld) Ordered By: Denzel Zamora on 09-13-2024 Monocytes/100 WBC (Bld) Automated monocyte % . [facility] Neutrophils Auto (Bld) [#/Vo l]Ordered By: Denzel Zamora on 09-13-2024 Neutrophils (Bld) [#/Vol] Neutrophils [#/volume] in Blood by Automated count 1.8-7.7 [facility] Neutrophils/100 WBC Auto (Bl d)Ordered By: Denzel Moyad on 09-13-2024 Neutrophils/100 WBC (Bld) Automated neutrophil % . [facility] No Panel InformationOrdered By: Denzel Zamora on 09-13-2024 > 60.0 mL/Min [facility] 83.23 [facility] Nucleated erythrocytes [Pres ence] in Blood by Automated countOrdered By: Denzel Zamora on 09-13-2024 Nucleated RBC Auto Ql (Bld) Nucleated erythrocytes [Presence] in Blood by Automated count 0-0.5 [facility] Platelet mean volume Auto (B ld) [Entitic vol]Ordered By: Denzel Zamora on 09-13-2024 Platelet mean volume (Bld) [Entitic vol] Platelet mean volume [Entitic volume] in Blood by Automated count 6.6-10.1 [facility] Platelets Auto (Bld) [#/Vol] Ordered By: Denzel Zamora on 09-13-2024 Platelets (Bld) [#/Vol] Platelets [#/volume] in Blood by Automated count 150-450 [facility] Potassium [Moles/volume] in Serum or PlasmaOrdered By: Denzel Zamora on 09-13-2024 Potassium [Moles/Vol] Potassium [Moles/v olume] in Serum or Plasma 3.5-5.1 [facility] RBC Auto (Bld) [#/Vol]Ordere d By: Denzel Zamora on 09-13-2024 RBC (Bld) [#/Vol] Erythrocytes [#/volu me] in Blood by Automated count 3.90-5.60 [facility] Serum or plasma anion gap de terminationOrdered By: Denzel Zamora on 09-13-2024 Anion gap [Moles/Vol] Serum or plasma an ion gap determination 6.0-15.0 [facility] Sodium [Moles/volume] in Ser um or PlasmaOrdered By: Denzel Zamora on 09-13-2024 Sodium [Moles/Vol] Sodium [Moles/volume ] in Serum or Plasma 136-145 [facility] Urea nitrogen [Mass/volume] in Serum or PlasmaOrdered By: Denzel Zamora on 09-13-2024 Urea nitrogen [Mass/Vol] Urea nitrogen [Mass/volume] in Serum or Plasma 7-25 [facility] WBC Auto (Bld) [#/Vol]Ordere d By: Denzel Zamora on 09-13-2024 WBC (Bld) [#/Vol] Leukocytes [#/volume ] in Blood by Automated count 4.1-10.5 [facility] Basic Metabolic Panelon 08-22 Anion gap [Moles/Vol] 10.9 mmol/L Normal 6.0-15.0 [facility] e [facility] Comment on above: Performed By: #### C BC, BMP ####[address] [address] [facility] Calcium [Mass/Vol] 8.9 mg/dL Normal 8.6-10.3 [facility] Comment on above: Performed By: #### C BC, BMP ####[place] [address] [place] [address] [place] Chloride [Moles/Vol] 107 mmol/L Normal 98-107 [facility] Comment on above: Performed By: #### C BC, BMP ####[address] [address] [facility] CO2 [Moles/Vol] 27.2 mmol/L Normal 21.0-31.0 [facility] Comment on above: Performed By: #### C BC, BMP ####[address] [address] [place] Creatinine [Mass/Vol] 1.10 mg/dL Normal 0.70-1.30 [facility] Comment on above: Performed By: #### C BC, BMP ####[address] [address] [place] Creatinine Clr Calc Pharmacy 73.39 Normal [facility] Comment on above: Result Comment: PERF ORMED BY:[address] [place], [place] [phone] MEDICAL DIRECTORRHONDA MCLEAN M.D. Performed By: #### C BC, BMP ####[address] [address] [place] GFR/1.73 sq M.predicted MDRD (S/P/Bld) [Vol rate/Area] mL/min/{1.73_m2} Normal [facility] Comment on above: Performed By: #### C BC, BMP ####[place] [phone] [facility] Glucose [Mass/Vol] 131 mg/dL High 70-100 [facility] Comment on above: Result Comment: [facility] Glucose Reference Range is dependent on time and content of last meal. Glucose of more than 200 mg/dL in a nonstressed, ambulatory subject supports the diagnosis of Diabetes Mellitus. ADA recommended reference range Performed By: #### C BC, BMP ####[place] [phone] [facility] Potassium [Moles/Vol] 4.1 mmol/L Normal 3.5-5.1 [facility] Comment on above: Result Comment: Hemo lysis is present at a level that could interfere with the result. Contact lab if redraw is required Performed By: #### C BC, BMP ####[place] [phone] [facility] Sodium [Moles/Vol] 141 mmol/L Normal 136-145 [facility] Comment on above: Performed By: #### C BC, BMP ####[place] [phone] [facility] Urea nitrogen [Mass/Vol] 22 mg/dL Normal 7-25 [facility] Comment on above: Performed By: #### C BC, BMP ####[place] [phone] [facility] Complete Blood Count Auto Di ffon 09-12-2024 Basophils (Bld) [#/Vol] 0.1 10*3/uL Normal 0.0-0.2 [facility] Comment on above: Result Comment: PERF ORMED BY:[address] [place], [place] [phone] MEDICAL DIRECTORRHONDA MCLEAN M.D. Performed By: #### C BC, BMP ####[place] [phone] [place] Basophils/100 WBC (Bld) 0.5 % Normal . [facility] Comment on above: Performed By: #### C BC, BMP ####[address] Eosinophils (Bld) [#/Vol] 0.0 10*3/uL Normal 0.0-0.45 [facility] Comment on above: Performed By: #### C BC, BMP ####[place] [phone] [facility] Eosinophils/100 WBC (Bld) 0.1 % Normal . [facility] Comment on above: Performed By: #### C BC, BMP ####[address] Erythrocyte distribution width (RBC) [Ratio] 16.8 % High 12.0-14.8 [facility] Comment on above: Performed By: #### C VERÓNICA, BMP ####[address] Hematocrit (Bld) [Volume fraction] 39.6 % Normal 38.8-50.0 [facility] Comment on above: Performed By: #### C VERÓNICA, BMP ####[address] Hemoglobin (Bld) [Mass/Vol] 13.2 g/dL Normal 13.0-17.0 [facility] Comment on above: Performed By: #### C VERÓNICA, BMP ####[address] Lymphocytes (Bld) [#/Vol] 0.7 10*3/uL Low 1.00-4.8 [facility] Comment on above: Performed By: #### C BC, BMP ####[address] Lymphocytes/100 WBC (Bld) 6.7 % Normal . [facility] Comment on above: Performed By: #### C BC, BMP ####[address] MCH (RBC) [Entitic mass] 30.5 pg Normal 27.5-35.2 [facility] Comment on above: Performed By: #### C BC, BMP ####[address] MCV (RBC) [Entitic vol] 91.4 fL Normal 83.5-101 [facility] Comment on above: Performed By: #### C BC, BMP ####[address] Mean Corpuscular HGB Conc 33.4 g/dL Normal 32.5-35.6 [facility] Comment on above: Performed By: #### C BC, BMP ####[address] Monocytes (Bld) [#/Vol] 1.0 10*3/uL High 0.0-0.8 [facility] Comment on above: Performed By: #### C VERÓNICA, BMP ####[address] Monocytes/100 WBC (Bld) 9.6 % Normal . [facility] Comment on above: Performed By: #### C VERÓNICA, BMP ####[address] Neutrophils (Bld) [#/Vol] 8.9 10*3/uL High 1.8-7.7 [facility] Comment on above: Performed By: #### C BC, BMP ####[place] [phone] [facility] Neutrophils/100 WBC (Bld) 83.1 % Normal . [facility] Comment on above: Performed By: #### C VERÓNICA, BMP ####[address] NRBC% 0.1 /100{WBC} Normal 0-0.5 [facility] Comment on above: Performed By: #### C BC, BMP ####[address] Platelet mean volume (Bld) [Entitic vol] 8.3 fL Normal 6.6-10.1 [facility] Comment on above: Performed By: #### C BC, BMP ####[place] [id number] [place] [phone] [facility] Platelets (Bld) [#/Vol] 208 10*3/uL Normal 150-450 [facility] Comment on above: Performed By: #### C BC, BMP ####[place] [phone] [facility] RBC (Bld) [#/Vol] 4.33 10*6/uL Normal 3.90-5.60 [facility] Comment on above: Performed By: #### C BC, BMP ####[place] [phone] [facility] WBC (Bld) [#/Vol] 10.7 10*3/uL High 4.1-10.5 [facility] Comment on above: Performed By: #### C VERÓNICA, BMP ####[place] [phone] [facility] Acanthocytes [Presence] in B lood by Light microscopyOrdered By: Joseline Barrera on 09-11-2024 Acanthocytes LM Ql (Bld) Acanthocytes [Presence] in Blood by Light microscopy [facility] Anisocytosis LM Ql (Bld)Orde red By: Joseline Barrera on 09-11-2024 Anisocytosis Ql (Bld) Anisocytosis [Pres ence] in Blood by Light microscopy [facility] B-Type Natriuretic Peptideon 09-11-2024 Natriuretic peptide B (Bld) [Mass/Vol] 72.0 pg/mL Normal 5-100 [facility] Comment on above: Result Comment: PERF ORMED BY:[address] [place], [place] [phone] MEDICAL DIRECTORRHONDA MCLENA M.D. Performed By: #### B MP, BNP, DIFF CBC, MG, HS TROP ####[place] [phone] [facility] Basic Metabolic Panelon 08-22 Anion gap [Moles/Vol] 10.9 mmol/L Normal 6.0-15.0 [facility] e [facility] Comment on above: Order Comment: NOTIF IED SUDHAKAR KATHE 1ST Specimen hemolyzed, redraw requested Performed By: #### B MP, BNP, DIFF CBC, MG, HS TROP ####[place] [phone] [facility] Calcium [Mass/Vol] 9.2 mg/dL Normal 8.6-10.3 [facility] Comment on above: Order Comment: NOTIF IED SUDHAKAR KATHE 1ST Specimen hemolyzed, redraw requested Performed By: #### B MP, BNP, DIFF CBC, MG, HS TROP ####[place] [phone] [facility] Chloride [Moles/Vol] 104 mmol/L Normal 98-107 [facility] Comment on above: Order Comment: NOTIF IED SUDHAKAR KATHE 1ST Specimen hemolyzed, redraw requested Performed By: #### B MP, BNP, DIFF CBC, MG, HS TROP ####[place] [phone] [facility] CO2 [Moles/Vol] 30.9 mmol/L Normal 21.0-31.0 [facility] Comment on above: Order Comment: NOTIF IED SUDHAKAR KATHE 1ST Specimen hemolyzed, redraw requested Performed By: #### B MP, BNP, DIFF CBC, MG, HS TROP ####[place] [phone] [facility] Creatinine [Mass/Vol] 1.49 mg/dL High 0.70-1.30 [facility] Comment on above: Order Comment: NOTIF IED SUDHAKAR KATHE 1ST Specimen hemolyzed, redraw requested Performed By: #### B MP, BNP, DIFF CBC, MG, HS TROP ####[place] [phone] [facility] Creatinine Clr Calc Pharmacy 54.21 Normal [facility] Comment on above: Order Comment: NOTIF IED SUDHAKAR KATHE 1ST Specimen hemolyzed, redraw requested Result Comment: PERF ORMED BY:[address] [place], [place] [id number] MEDICAL DIRECTORMOHAMED M EL-FAKHARANY M.D. Performed By: #### B MP, BNP, DIFF CBC, MG, HS TROP ####[address] Estimated GFR 47.149 mL/Min Normal [facility] Comment on above: Order Comment: NOTIF IED SUDHAKAR ARCHULETA 1ST Specimen hemolyzed, redraw requested Performed By: #### B MP, BNP, DIFF CBC, MG, HS TROP ####[address] Glucose [Mass/Vol] 133 mg/dL High 70-100 [facility] Comment on above: Order Comment: NOTIF IED SUDHAKAR ARCHULETA 1ST Specimen hemolyzed, redraw requested Result Comment: [facility] Glucose Reference Range is dependent on time and content of last meal. Glucose of more than 200 mg/dL in a nonstressed, ambulatory subject supports the diagnosis of Diabetes Mellitus. ADA recommended reference range Performed By: #### B MP, BNP, DIFF CBC, MG, HS TROP ####[address] Potassium [Moles/Vol] 3.8 mmol/L Normal 3.5-5.1 [facility] Comment on above: Order Comment: NOTIF IED SUDHAKAR ARCHULETA 1ST Specimen hemolyzed, redraw requested Performed By: #### B MP, BNP, DIFF CBC, MG, HS TROP ####[address] Sodium [Moles/Vol] 142 mmol/L Normal 136-145 [facility] Comment on above: Order Comment: NOTIF IED SUDHAKAR KATHE 1ST Specimen hemolyzed, redraw requested Performed By: #### B MP, BNP, DIFF CBC, MG, HS TROP ####[place] [phone] [facility] Urea nitrogen [Mass/Vol] 29 mg/dL High 7-25 [facility] Comment on above: Order Comment: NOTIF IED SUDHAKAR KATHE 1ST Specimen hemolyzed, redraw requested Performed By: #### B MP, BNP, DIFF CBC, MG, HS TROP ####[address] [place] [address] [facility] Basophils Auto (Bld) [#/Vol] Ordered By: Joseline Barrera on 09-11-2024 Basophils (Bld) [#/Vol] Automated basophil count [facility] Basophils/100 WBC Auto (Bld) Ordered By: Joseline Barrera on 09-11-2024 Basophils/100 WBC (Bld) Automated basophil % [facility] C reactive protein [Mass/vol ume] in Serum or PlasmaOrdered By: Jamel Packer on 09-11-2024 CRP [Mass/Vol] C reactive protein [Mass/volume] in Serum or Plasma High 0.0-0.5 [facility] C-Reactive Proteinon 025 C-Reactive Protein 0.6 mg/dL High 0.0-0.5 [facility] Comment on above: Result Comment: PERF ORMED BY:[place] [address] [place], [place] [id number] MEDICAL DIRECTORRHONDA MCLEAN M.D. Performed By: #### E SR, CRP ####[place] [id number] [facility] COVID Cepheid NegativeOrdere d By: Joseline Barrera on 09-11-2024 SARS-CoV-2 (COVID-19) RNA JAYDE+probe Ql (Unsp spec) COVID Cepheid Negative [facility] COVID-19 / Flu A/B / RSV PCR on 09-11-2024 SARS-CoV-2 (COVID-19) RNA JAYDE+probe Ql (Unsp spec) Normal [facility] Comment on above: Performed By: #### C OVID19 FLU RSV, CEPHEID NEG ####[address] [address] [facility] Calcium [Mass/volume] in Ser um or PlasmaOrdered By: Joseline Barrera on 09-11-2024 Calcium [Mass/Vol] Calcium [Mass/volume ] in Serum or Plasma 8.6-10.3 [facility] Carbon dioxide, total [Moles /volume] in Serum or PlasmaOrdered By: Joseline Barrera on 09-11-2024 CO2 [Moles/Vol] Carbon dioxide, tota l [Moles/volume] in Serum or Plasma 21.0-31.0 [facility] Cepheid COVID PCR Negativeon 09-11-2024 SARS-CoV-2 (COVID-19) RNA JAYDE+probe Ql (Unsp spec) Negative Normal Negative [facility] Comment on above: Result Comment: This is a duplicate CepDeposcoid Xpert Xpress CoV-2/Flu/RSV Plus RNA by RT-PCR result to be used for statistical tracking purpose only.PERFORMED BY:[address] [place], [place] [phone] MEDICAL DIRECTORRHONDA MCLEAN M.D. Performed By: #### C OVID19 FLU RSV, CEPHEID NEG ####[address] Chloride [Moles/volume] in S [place] or PlasmaOrdered By: Joseline Barrera on 09-11-2024 Chloride [Moles/Vol] Chloride [Moles/vol ume] in Serum or Plasma 98-107 [facility] Creatinine [Mass/volume] in Serum or PlasmaOrdered By: Joseline Barrera on 09-11-2024 Creatinine [Mass/Vol] Creatinine [Mass/v olume] in Serum or Plasma High 0.70-1.30 [facility] Diff and CBCon 09-11-2024 Acanthocytes Slight Normal [facility] Comment on above: Performed By: #### B MP, BNP, DIFF CBC, MG, HS TROP ####[address] Anisocytosis Ql (Bld) Slight Normal [facility] Comment on above: Performed By: #### B MP, BNP, DIFF CBC, MG, HS TROP ####[address] Erythrocyte distribution width (RBC) [Ratio] 17.1 % High 12.0-14.8 [facility] Comment on above: Performed By: #### B MP, BNP, DIFF CBC, MG, HS TROP ####[place] [id number] [facility] Hematocrit (Bld) [Volume fraction] 40.0 % Normal 38.8-50.0 [facility] Comment on above: Performed By: #### B MP, BNP, DIFF CBC, MG, HS TROP ####[address] Hemoglobin (Bld) [Mass/Vol] 13.4 g/dL Normal 13.0-17.0 [facility] Comment on above: Performed By: #### B MP, BNP, DIFF CBC, MG, HS TROP ####[address] Lymphocytes/100 WBC (Bld) 24 % Normal 18-42 [facility] Comment on above: Performed By: #### B MP, BNP, DIFF CBC, MG, HS TROP ####[address] MCH (RBC) [Entitic mass] 30.8 pg Normal 27.5-35.2 [facility] Comment on above: Performed By: #### B MP, BNP, DIFF CBC, MG, HS TROP ####[address] MCV (RBC) [Entitic vol] 92.2 fL Normal 83.5-101 [facility] Comment on above: Performed By: #### B MP, BNP, DIFF CBC, MG, HS TROP ####[address] Mean Corpuscular HGB Conc 33.4 g/dL Normal 32.5-35.6 [facility] Comment on above: Performed By: #### B MP, BNP, DIFF CBC, MG, HS TROP ####[address] Metamyelocytes 1 % High 0-0 [facility] Comment on above: Performed By: #### B MP, BNP, DIFF CBC, MG, HS TROP ####[address] Monocytes/100 WBC (Bld) 17.57 % Normal 0.00-20.00 [facility] Comment on above: Performed By: #### B MP, BNP, DIFF CBC, MG, HS TROP ####[address] Monocytes/100 WBC (Bld) 14 % High 2-11 [facility] Comment on above: Performed By: #### B MP, BNP, DIFF CBC, MG, HS TROP ####[place] [phone] [facility] Platelet Estimate Normal Normal Normal [facility] Comment on above: Performed By: #### B MP, BNP, DIFF CBC, MG, HS TROP ####[address] Platelet mean volume (Bld) [Entitic vol] 9.2 fL Normal 6.6-10.1 [facility] Comment on above: Performed By: #### B MP, BNP, DIFF CBC, MG, HS TROP ####[address] Platelet Morphology Normal Normal Normal [facility] Comment on above: Result Comment: PERF ORMED BY:[address] [place], [place] [phone] MEDICAL DIRECTORRHONDA MCLEAN M.D. Performed By: #### B MP, BNP, DIFF CBC, MG, HS TROP ####[place] [phone] [facility] Platelets (Bld) [#/Vol] 233 10*3/uL Normal 150-450 [facility] Comment on above: Performed By: #### B MP, BNP, DIFF CBC, MG, HS TROP ####[place] [phone] [facility] RBC (Bld) [#/Vol] 4.34 10*6/uL Normal 3.90-5.60 [facility] Comment on above: Performed By: #### B MP, BNP, DIFF CBC, MG, HS TROP ####[place] [phone] [facility] Segmented neutrophils/100 WBC (Bld) 61 % Normal 50-70 [facility] Comment on above: Performed By: #### B MP, BNP, DIFF CBC, MG, HS TROP ####[place] [id number] WBC (Bld) [#/Vol] 7.8 10*3/uL Normal 4.1-10.5 [facility] Comment on above: Performed By: #### B MP, BNP, DIFF CBC, MG, HS TROP ####[address] ECG 12 lead ECGon 09-11-2024 ECG 12 lead ECG Normal [facility] Eosinophils Auto (Bld) [#/Vo l]Ordered By: Joseline Barrera on 09-11-2024 Eosinophils (Bld) [#/Vol] Automated eosinophil count [facility] Eosinophils/100 WBC Auto (Bl d)Ordered By: Joseline Barrera on 09-11-2024 Eosinophils/100 WBC (Bld) Automated eosinophil % [facility] Erythrocyte Sedimentation Ra kimberlee 09-11-2024 ESR (Bld) [Velocity] 16 mm/h Normal 0-19 [facility] Comment on above: Result Comment: PERF ORMED BY:[address] [place], [place] [phone] MEDICAL DIRECTORRHONDA MCLEAN M.D. Performed By: #### E SR, CRP ####[address] Erythrocyte distribution wid th Auto (RBC) [Ratio]Ordered By: Joseline Barrera on 09-11-2024 Erythrocyte distribution width (RBC) [Ratio] Erythrocyte distribution width [Ratio] by Automated count High 12.0-14.8 [facility] Erythrocyte morphology findi ng [Identifier] in BloodOrdered By: Joseline Barrera on 09-11-2024 RBC morphology finding Nom (Bld) RBC morphology [facility] Erythrocyte sedimentation ra te by Photometric methodOrdered By: Jamel Packer on 09-11-2024 ESR Photometric method (Bld) [Velocity] Erythrocyte sedimentation rate by Photometric method 0-19 [facility] Glucose [Mass/volume] in Ser um or PlasmaOrdered By: Joseline Barrera on 09-11-2024 Glucose [Mass/Vol] Glucose [Mass/volume ] in Serum or Plasma High 70-100 [facility] Hematocrit Auto (Bld) [Volum e fraction]Ordered By: Joseline Barrera on 09-11-2024 Hematocrit (Bld) [Volume fraction] Hematocrit [Volume Fraction] of Blood by Automated count 38.8-50.0 [facility] Hemoglobin [Mass/volume] in BloodOrdered By: Joseline Barrera on 09-11-2024 Hemoglobin (Bld) [Mass/Vol] Hemoglobin [Mass/volume] in Blood 13.0-17.0 [facility] Leukocytes [#/volume] correc blessing for nucleated erythrocytes in Blood by Automated counOrdered By: Joseline Barrera on 09-11-2024 WBC corrected for nucl RBC Auto (Bld) [#/Vol] Leukocytes [#/volume] corrected for nucleated erythrocytes in Blood by Automated coun 4.1-10.5 [facility] Lymphocytes Auto (Bld) [#/Vo l]Ordered By: Joseline Barrera on 09-11-2024 Lymphocytes (Bld) [#/Vol] Lymphocytes [#/volume] in Blood by Automated count [facility] Lymphocytes/100 WBC Auto (Bl d)Ordered By: Joseline Barrera on 09-11-2024 Lymphocytes/100 WBC (Bld) Lymphocytes/100 leukocytes in Blood by Automated count [facility] Lymphocytes/100 WBC Manual c nt (Bld)Ordered By: Joseline Barrera on 09-11-2024 Lymphocytes/100 WBC (Bld) Lymphocytes/100 leukocytes in Blood by Manual count 18-42 [facility] MCH Auto (RBC) [Entitic mass ]Ordered By: Joseline Barrera on 09-11-2024 MCH (RBC) [Entitic mass] MCH [Entitic mass] by Automated count 27.5-35.2 [facility] MCHC Auto (RBC) [Mass/Vol]Or dered By: Joseline Barrera on 09-11-2024 MCHC (RBC) [Mass/Vol] MCHC [Mass/volume] by Automated count 32.5-35.6 [facility] MCV Auto (RBC) [Entitic vol] Ordered By: Joseline Barrera on 09-11-2024 MCV (RBC) [Entitic vol] MCV [Entitic volume] by Automated count 83.5-101 [facility] Magnesiumon 09-11-2024 Magnesium [Mass/Vol] 2.1 mg/dL Normal 1.9-2.7 [facility] Comment on above: Order Comment: NOTIF IED SUDHAKAR ARCHULETA 1ST Specimen hemolyzed, redraw requested Result Comment: PERF ORMED BY:[facility] [place], [place] [phone] MEDICAL DIRECTORRHONDA MCLEAN M.D. Performed By: #### B MP, BNP, DIFF CBC, MG, HS TROP ####[facility] [place] [address] [facility] Magnesium [Mass/volume] in [place] or PlasmaOrdered By: Joseline Barrera on 09-11-2024 Magnesium [Mass/Vol] Magnesium [Mass/vol ume] in Serum or Plasma 1.9-2.7 [facility] Metamyelocytes/100 WBC Manua l cnt (Bld)Ordered By: Joseline Barrera on 09-11-2024 Metamyelocytes/100 WBC (Bld) Metamyelocytes/100 leukocytes in Blood by Manual count High 0-0 [facility] Monocyte distribution width [Entitic volume] in Blood by AutomatedOrdered By: Joseline Barrera on 09-11-2024 Monocyte distribution width Auto (Bld) [Entitic vol] Monocyte distribution width [Entitic volume] in Blood by Automated 0.00-20.00 [facility] Monocytes Auto (Bld) [#/Vol] Ordered By: Joseline Barrera on 09-11-2024 Monocytes (Bld) [#/Vol] Automated blood monocyte count [facility] Monocytes/100 WBC Auto (Bld) Ordered By: Joseline Barrera on 09-11-2024 Monocytes/100 WBC (Bld) Automated monocyte % [facility] Monocytes/100 WBC Manual cnt (Bld)Ordered By: Joseline Barrera on 09-11-2024 Monocytes/100 WBC (Bld) Monocytes/100 leukocytes in Blood by Manual count High 2-11 [facility] Natriuretic peptide B [Mass/ Vol]Ordered By: Joseline Barrera on 09-11-2024 Natriuretic peptide B (Bld) [Mass/Vol] BNP ser/plas 5-100 [facility] Neutrophils Auto (Bld) [#/Vo l]Ordered By: Joseline Barrera on 09-11-2024 Neutrophils (Bld) [#/Vol] Neutrophils [#/volume] in Blood by Automated count [facility] Neutrophils/100 WBC Auto (Bl d)Ordered By: Joseline Barrera on 09-11-2024 Neutrophils/100 WBC (Bld) Automated neutrophil % [facility] No Panel InformationOrdered By: Joseline Barrera on 09-11-2024 47.149 mL/Min [facility] 54.21 [facility] Nucleated erythrocytes [Pres ence] in Blood by Automated countOrdered By: Joseline Barrera on 09-11-2024 Nucleated RBC Auto Ql (Bld) Nucleated erythrocytes [Presence] in Blood by Automated count [facility] Platelet adequacy [Presence] in Blood by Light microscopyOrdered By: Joseline Barrera on 09-11-2024 Platelets LM Ql (Bld) Platelet adequacy [Presence] in Blood by Light microscopy Normal [facility] Platelet mean volume Auto (B ld) [Entitic vol]Ordered By: Joseline Barrera on 09-11-2024 Platelet mean volume (Bld) [Entitic vol] Platelet mean volume [Entitic volume] in Blood by Automated count 6.6-10.1 [facility] Platelet morphology finding [Identifier] in BloodOrdered By: Joseline Barrera on 09-11-2024 Platelet morphology finding Nom (Bld) Platelet morphology finding [Identifier] in Blood Normal [facility] Platelets Auto (Bld) [#/Vol] Ordered By: Joseline Barrera on 09-11-2024 Platelets (Bld) [#/Vol] Platelets [#/volume] in Blood by Automated count 150-450 [facility] Potassium [Moles/volume] in Serum or PlasmaOrdered By: Joseline Barrera on 09-11-2024 Potassium [Moles/Vol] Potassium [Moles/v olume] in Serum or Plasma 3.5-5.1 [facility] RBC Auto (Bld) [#/Vol]Ordere d By: Joseline Barrera on 09-11-2024 RBC (Bld) [#/Vol] Erythrocytes [#/volu me] in Blood by Automated count 3.90-5.60 [facility] Segmented neutrophils/100 WB C Manual cnt (Bld)Ordered By: Joseline Barrera on 09-11-2024 Segmented neutrophils/100 WBC (Bld) Manual blood segmented neutrophils/100 leukocytes 50-70 [facility] Serum or plasma anion gap de terminationOrdered By: Joseline Barrera on 09-11-2024 Anion gap [Moles/Vol] Serum or plasma an ion gap determination 6.0-15.0 [facility] Sodium [Moles/volume] in Ser um or PlasmaOrdered By: Joseline Barrera on 09-11-2024 Sodium [Moles/Vol] Sodium [Moles/volume ] in Serum or Plasma 136-145 [facility] Troponin I High Sensitivityo n 09-11-2024 Troponin I High Sensitivity 9 Normal 0-20 [facility] Comment on above: Result Comment: The Troponin units of report have been changed to meet the Chest Pain Accreditation requirement, element EC5.M1l2. Troponin units are changed from pg/ml to ng/L. Also, the decimal is removed and results are in whole numbers.PERFORMED BY:[place] [address] [place], [place] [phone] MEDICAL DIRECTORRHONDA MCLEAN M.D. Performed By: #### B MP, BNP, DIFF CBC, MG, HS TROP ####[facility] [place] [address] [facility] Troponin I.cardiac [Mass/vol ume] in Serum or Plasma by Detection limit <= 0.01 ng/Ordered By: Joseline Barrera on 09-11-2024 Troponin I.cardiac DL <= 0.01 ng/mL [Mass/Vol] Troponin I.cardiac [Mass/volume] in Serum or Plasma by Detection limit <= 0.01 ng/ 0-20 [facility] Urea nitrogen [Mass/volume] in Serum or PlasmaOrdered By: Joseline Barrera on 09-11-2024 Urea nitrogen [Mass/Vol] Urea nitrogen [Mass/volume] in Serum or Plasma High 7-25 [facility] WBC Auto (Bld) [#/Vol]Ordere d By: Joseline Barrera on 09-11-2024 WBC (Bld) [#/Vol] Leukocytes [#/volume ] in Blood by Automated count 4.1-10.5 [facility] X-ray reportOrdered By: Narendra Mock on 09-11-2024 Study report [facility] XR chest 2V*on 09-11-2024 XR chest 2V* Normal [facility] Alanine aminotransferase [En zymatic activity/volume] in Serum or PlasmaOrdered By: Kaz Prescott on 07-31-2024 ALT [Catalytic activity/Vol] Alanine aminotransferase [Enzymatic activity/volume] in Serum or Plasma 52 [facility] Albumin [Mass/volume] in Ser um or Plasma by Bromocresol green (BCG) dye binding methoOrdered By: Kaz Prescott on 07-31-2024 Albumin BCG dye [Mass/Vol] Albumin [Mass/volume] in Serum or Plasma by Bromocresol green (BCG) dye binding metho Low 3.5-5.7 [facility] Alkaline phosphatase [Enzyma tic activity/volume] in Serum or PlasmaOrdered By: Kaz Prescott on 07-31-2024 ALP [Catalytic activity/Vol] Alkaline phosphatase [Enzymatic activity/volume] in Serum or Plasma 34-104 [facility] Aspartate aminotransferase [ Enzymatic activity/volume] in Serum or PlasmaOrdered By: Kaz Prescott on 07-31-2024 AST [Catalytic activity/Vol] Aspartate aminotransferase [Enzymatic activity/volume] in Serum or Plasma 13-39 [facility] Basophils Auto (Bld) [#/Vol] Ordered By: Kaz Prescott on 07-31-2024 Basophils (Bld) [#/Vol] Automated basophil count 0.0-0.2 [facility] Basophils/100 WBC Auto (Bld) Ordered By: Kaz Prescott on 07-31-2024 Basophils/100 WBC (Bld) Automated basophil % . [facility] Bilirubin.total [Mass/volume ] in Serum or PlasmaOrdered By: Kaz Prescott on 07-31-2024 Bilirubin [Mass/Vol] Bilirubin.total [Mass/volume] in Serum or Plasma 0.3-1.0 [facility] Calcium [Mass/volume] in Ser um or PlasmaOrdered By: Kaz Prescott on 07-31-2024 Calcium [Mass/Vol] Calcium [Mass/volume ] in Serum or Plasma 8.6-10.3 [facility] Carbon dioxide, total [Moles /volume] in Serum or PlasmaOrdered By: Kaz Prescott on 07-31-2024 CO2 [Moles/Vol] Carbon dioxide, tota l [Moles/volume] in Serum or Plasma High 21.0-31.0 [facility] Chloride [Moles/volume] in [place] or PlasmaOrdered By: Kaz Prescott on 07-31-2024 Chloride [Moles/Vol] Chloride [Moles/vol ume] in Serum or Plasma 98-107 [facility] Complete Blood Count Auto Di ffon 07-31-2024 Basophils (Bld) [#/Vol] 0.1 10*3/uL Normal 0.0-0.2 [facility] Comment on above: Result Comment: PERF ORMED BY:[address] [place], [place] [phone] MEDICAL DIRECTORRHONDA MCLEAN M.D. Performed By: #### C VERÓNICA MG, CMP ####[address] Basophils/100 WBC (Bld) 0.8 % Normal . [facility] Comment on above: Performed By: #### C BC MG, CMP ####[facility] [place] [id number] [facility] Eosinophils (Bld) [#/Vol] 0.4 10*3/uL Normal 0.0-0.45 [facility] Comment on above: Performed By: #### C BC MG, CMP ####[facility] [place], [place] [id number] [facility] Eosinophils/100 WBC (Bld) 3.7 % Normal . [facility] Comment on above: Performed By: #### C BC MG, CMP ####[address] Erythrocyte distribution width (RBC) [Ratio] 15.0 % High 12.0-14.8 [facility] Comment on above: Performed By: #### C BC, MG, CMP ####[address] Hematocrit (Bld) [Volume fraction] 38.6 % Low 38.8-50.0 [facility] Comment on above: Performed By: #### C BC, MG, CMP ####[place] [phone] [facility] Hemoglobin (Bld) [Mass/Vol] 13.0 g/dL Normal 13.0-17.0 [facility] Comment on above: Performed By: #### C BC, MG, CMP ####[address] Lymphocytes (Bld) [#/Vol] 2.1 10*3/uL Normal 1.00-4.8 [facility] Comment on above: Performed By: #### C BC, MG, CMP ####[address] Lymphocytes/100 WBC (Bld) 21.4 % Normal . [facility] Comment on above: Performed By: #### C BC, MG, CMP ####[address] MCH (RBC) [Entitic mass] 30.6 pg Normal 27.5-35.2 [facility] Comment on above: Performed By: #### C BC, MG, CMP ####[place] [phone] [facility] MCV (RBC) [Entitic vol] 91.1 fL Normal 83.5-101 [facility] Comment on above: Performed By: #### C BC, MG, CMP ####[place] [phone] [facility] Mean Corpuscular HGB Conc 33.6 g/dL Normal 32.5-35.6 [facility] Comment on above: Performed By: #### C BC, MG, CMP ####[address] Monocytes (Bld) [#/Vol] 1.1 10*3/uL High 0.0-0.8 [facility] Comment on above: Performed By: #### C BC, MG, CMP ####[address] Monocytes/100 WBC (Bld) 10.8 % Normal . [facility] Comment on above: Performed By: #### C BC, MG, CMP ####[address] Neutrophils (Bld) [#/Vol] 6.2 10*3/uL Normal 1.8-7.7 [facility] Comment on above: Performed By: #### C BC, MG, CMP ####[address] Neutrophils/100 WBC (Bld) 63.3 % Normal . [facility] Comment on above: Performed By: #### C BC, MG, CMP ####[address] NRBC% 0.3 /100{WBC} Normal 0-0.5 [facility] Comment on above: Performed By: #### C BC, MG, CMP ####[address] Platelet mean volume (Bld) [Entitic vol] 8.9 fL Normal 6.6-10.1 [facility] Comment on above: Performed By: #### C BC, MG, CMP ####[address] Platelets (Bld) [#/Vol] 227 10*3/uL Normal 150-450 [facility] Comment on above: Performed By: #### C BC, MG, CMP ####[address] RBC (Bld) [#/Vol] 4.24 10*6/uL Normal 3.90-5.60 [facility] Comment on above: Performed By: #### C BC MG, CMP ####[address] WBC (Bld) [#/Vol] 9.8 10*3/uL Normal 4.1-10.5 [facility] Comment on above: Performed By: #### C BC MG, CMP ####[address] Comprehensive Metabolic Pane rc 07-31-2024 Albumin [Mass/Vol] 3.1 g/dL Low 3.5-5.7 [facility] Comment on above: Performed By: #### C VERÓNICA MG, CMP ####[address] Albumin/Globulin [Mass ratio] 1.2 {ratio} Normal [facility] Comment on above: Performed By: #### C BC MG, CMP ####[address] ALP [Catalytic activity/Vol] 49 U/L Normal 34-104 [facility] Comment on above: Performed By: #### C VERÓNICA MG, CMP ####[address] ALT [Catalytic activity/Vol] 18 U/L Normal 7-52 [facility] Comment on above: Performed By: #### C BC MG, CMP ####[address] Anion gap [Moles/Vol] 10.4 mmol/L Normal 6.0-15.0 [facility] Comment on above: Performed By: #### C BC MG, CMP ####[address] AST [Catalytic activity/Vol] 16 U/L Normal 13-39 [facility] Comment on above: Performed By: #### C BC MG, CMP ####[address] Bilirubin [Mass/Vol] 0.8 mg/dL Normal 0.3-1.0 [facility] Comment on above: Performed By: #### C BC, MG, CMP ####[address] Calcium [Mass/Vol] 8.9 mg/dL Normal 8.6-10.3 [facility] Comment on above: Performed By: #### C BC, MG, CMP ####[address] Chloride [Moles/Vol] 102 mmol/L Normal 98-107 [facility] Comment on above: Performed By: #### C BC, MG, CMP ####[address] CO2 [Moles/Vol] 33.0 mmol/L High 21.0-31.0 [facility] Comment on above: Performed By: #### C BC, MG, CMP ####[address] Creatinine [Mass/Vol] 1.05 mg/dL Normal 0.70-1.30 [facility] Comment on above: Performed By: #### C BC, MG, CMP ####[address] Creatinine Clr Calc Pharmacy 75.84 Normal [facility] Comment on above: Performed By: #### C BC, MG, CMP ####[address] GFR/1.73 sq M.predicted MDRD (S/P/Bld) [Vol rate/Area] mL/min/{1.73_m2} Normal [facility] Comment on above: Performed By: #### C BC, MG, CMP ####[address] Globulin (S) [Mass/Vol] 2.5 g/dL Normal [facility] Comment on above: Performed By: #### C BC, MG, CMP ####[address] Glucose [Mass/Vol] 100 mg/dL Normal 70-100 [facility] Comment on above: Result Comment: [facility] Glucose Reference Range is dependent on time and content of last meal. Glucose of more than 200 mg/dL in a nonstressed, ambulatory subject supports the diagnosis of Diabetes Mellitus. ADA recommended reference range Performed By: #### C BC, MG, CMP ####[address] Potassium [Moles/Vol] 3.4 mmol/L Low 3.5-5.1 [facility] Comment on above: Performed By: #### C BC, MG, CMP ####[address] Protein [Mass/Vol] 5.6 g/dL Low 6.4-8.9 [facility] Comment on above: Performed By: #### C BC, MG, CMP ####[address] Sodium [Moles/Vol] 142 mmol/L Normal 136-145 [facility] Comment on above: Performed By: #### C BC, MG, CMP ####[address] Urea nitrogen [Mass/Vol] 18 mg/dL Normal 7-25 [facility] Comment on above: Performed By: #### C BC, MG, CMP ####[address] Creatinine [Mass/volume] in Serum or PlasmaOrdered By: Kaz Prescott on 07-31-2024 Creatinine [Mass/Vol] Creatinine [Mass/v olume] in Serum or Plasma 0.70-1.30 [facility] Eosinophils Auto (Bld) [#/Vo l]Ordered By: Kaz Prescott on 07-31-2024 Eosinophils (Bld) [#/Vol] Automated eosinophil count 0.0-0.45 [facility] Eosinophils/100 WBC Auto (Bl d)Ordered By: Kaz Prescott on 07-31-2024 Eosinophils/100 WBC (Bld) Automated eosinophil % . [facility] Erythrocyte distribution wid th Auto (RBC) [Ratio]Ordered By: Kaz Prescott on 07-31-2024 Erythrocyte distribution width (RBC) [Ratio] Erythrocyte distribution width [Ratio] by Automated count High 12.0-14.8 [facility] Globulin Calc (S) [Mass/Vol] Ordered By: Kaz Prescott on 07-31-2024 Globulin (S) [Mass/Vol] Serum globulin measurement by calculation (mass/volume) [facility] Glucose [Mass/volume] in Ser um or PlasmaOrdered By: Kaz Prescott on 07-31-2024 Glucose [Mass/Vol] Glucose [Mass/volume ] in Serum or Plasma 70-100 [facility] Hematocrit Auto (Bld) [Volum e fraction]Ordered By: Kaz Prescott on 07-31-2024 Hematocrit (Bld) [Volume fraction] Hematocrit [Volume Fraction] of Blood by Automated count Low 38.8-50.0 [facility] Hemoglobin [Mass/volume] in BloodOrdered By: Kaz Prescott 07-31-2024 Hemoglobin (Bld) [Mass/Vol] Hemoglobin [Mass/volume] in Blood 13.0-17.0 [facility] Leukocytes [#/volume] correc blessing for nucleated erythrocytes in Blood by Automated counOrdered By: Kaz Prescott 07-31-2024 WBC corrected for nucl RBC Auto (Bld) [#/Vol] Leukocytes [#/volume] corrected for nucleated erythrocytes in Blood by Automated coun 4.1-10.5 [facility] Lymphocytes Auto (Bld) [#/Vo l]Ordered By: Kaz Prescott on 07-31-2024 Lymphocytes (Bld) [#/Vol] Lymphocytes [#/volume] in Blood by Automated count 1.00-4.8 [facility] Lymphocytes/100 WBC Auto (Bl d)Ordered By: Kaz Prescott on 07-31-2024 Lymphocytes/100 WBC (Bld) Lymphocytes/100 leukocytes in Blood by Automated count . [facility] MCH Auto (RBC) [Entitic mass ]Ordered By: Kaz Prescott on 07-31-2024 MCH (RBC) [Entitic mass] MCH [Entitic mass] by Automated count 27.5-35.2 [facility] MCHC Auto (RBC) [Mass/Vol]Or dered By: Kaz Prescott on 07-31-2024 MCHC (RBC) [Mass/Vol] MCHC [Mass/volume] by Automated count 32.5-35.6 [facility] MCV Auto (RBC) [Entitic vol] Ordered By: Kaz Prescott on 07-31-2024 MCV (RBC) [Entitic vol] MCV [Entitic volume] by Automated count 83.5-101 [facility] Magnesiumon 07-31-2024 Magnesium [Mass/Vol] 1.9 mg/dL Normal 1.9-2.7 [facility] Comment on above: Result Comment: PERF ORMED BY:[facility] [place], [place] [phone] MEDICAL DIRECTORRHONDA MCLEAN M.D. Performed By: #### C BC, MG, CMP ####[facility] [place] [id number] [facility] Magnesium [Mass/volume] in [place] or PlasmaOrdered By: Kaz Prescott on 07-31-2024 Magnesium [Mass/Vol] Magnesium [Mass/vol ume] in Serum or Plasma 1.9-2.7 [facility] Monocytes Auto (Bld) [#/Vol] Ordered By: Kaz Prescott on 07-31-2024 Monocytes (Bld) [#/Vol] Automated blood monocyte count High 0.0-0.8 [facility] Monocytes/100 WBC Auto (Bld) Ordered By: Kaz Prescott on 07-31-2024 Monocytes/100 WBC (Bld) Automated monocyte % . [facility] Neutrophils Auto (Bld) [#/Vo l]Ordered By: Kaz Prescott on 07-31-2024 Neutrophils (Bld) [#/Vol] Neutrophils [#/volume] in Blood by Automated count 1.8-7.7 [facility] Neutrophils/100 WBC Auto (Bl d)Ordered By: Kaz Prescott on 07-31-2024 Neutrophils/100 WBC (Bld) Automated neutrophil % . [facility] No Panel InformationOrdered By: Kaz Prescott on 07-31-2024 > 60.0 mL/Min [facility] 75.84 [facility] Nucleated erythrocytes [Pres ence] in Blood by Automated countOrdered By: Kaz Prescott on 07-31-2024 Nucleated RBC Auto Ql (Bld) Nucleated erythrocytes [Presence] in Blood by Automated count 0-0.5 [facility] Platelet mean volume Auto (B ld) [Entitic vol]Ordered By: Kaz Prescott on 07-31-2024 Platelet mean volume (Bld) [Entitic vol] Platelet mean volume [Entitic volume] in Blood by Automated count 6.6-10.1 [facility] Platelets Auto (Bld) [#/Vol] Ordered By: Kaz Prescott on 07-31-2024 Platelets (Bld) [#/Vol] Platelets [#/volume] in Blood by Automated count 150-450 [facility] Potassium [Moles/volume] in Serum or PlasmaOrdered By: Kaz Prescott on 07-31-2024 Potassium [Moles/Vol] Potassium [Moles/v olume] in Serum or Plasma Low 3.5-5.1 [facility] Protein [Mass/volume] in Ser um or PlasmaOrdered By: Kaz Prescott on 07-31-2024 Protein [Mass/Vol] Protein [Mass/volume ] in Serum or Plasma Low 6.4-8.9 [facility] RBC Auto (Bld) [#/Vol]Ordere d By: Kaz Prescott on 07-31-2024 RBC (Bld) [#/Vol] Erythrocytes [#/volu me] in Blood by Automated count 3.90-5.60 [facility] Serum or plasma albumin/glob ulin mass ratioOrdered By: Kaz Prescott on 07-31-2024 Albumin/Globulin [Mass ratio] Serum or plasma albumin/globulin mass ratio [facility] Serum or plasma anion gap de terminationOrdered By: Kaz Prescott on 07-31-2024 Anion gap [Moles/Vol] Serum or plasma an ion gap determination 6.0-15.0 [facility] Sodium [Moles/volume] in Ser um or PlasmaOrdered By: Kaz Prescott on 07-31-2024 Sodium [Moles/Vol] Sodium [Moles/volume ] in Serum or Plasma 136-145 [facility] US venous duplex LE BIon US venous duplex LE BI Normal Th e [facility] Urea nitrogen [Mass/volume] in Serum or PlasmaOrdered By: Kaz Prescott on 07-31-2024 Urea nitrogen [Mass/Vol] Urea nitrogen [Mass/volume] in Serum or Plasma 7-25 [facility] WBC Auto (Bld) [#/Vol]Ordere d By: Kaz Prescott on 07-31-2024 WBC (Bld) [#/Vol] Leukocytes [#/volume ] in Blood by Automated count 4.1-10.5 [facility] Complete Blood Count Auto Di ffon 07-30-2024 Basophils (Bld) [#/Vol] 0.1 10*3/uL Normal 0.0-0.2 [facility] Comment on above: Result Comment: PERF ORMED BY:[address] [place], [place] [id number] MEDICAL DIRECTORRHONDA MCLEAN M.D. Performed By: #### C VERÓNICA, CMP ####[address] Basophils/100 WBC (Bld) 0.6 % Normal . [facility] Comment on above: Performed By: #### C VERÓNICA, CMP ####[place] [id number] [facility] Eosinophils (Bld) [#/Vol] 0.1 10*3/uL Normal 0.0-0.45 [facility] Comment on above: Performed By: #### C VERÓNICA, CMP ####[place] [id number] [facility] Eosinophils/100 WBC (Bld) 1.6 % Normal . [facility] Comment on above: Performed By: #### C BC, CMP ####[place] [id number] [place] Erythrocyte distribution width (RBC) [Ratio] 15.4 % High 12.0-14.8 [facility] Comment on above: Performed By: #### C VERÓNICA, CMP ####[address] Hematocrit (Bld) [Volume fraction] 38.6 % Low 38.8-50.0 [facility] Comment on above: Performed By: #### C VERÓNICA, CMP ####[address] Hemoglobin (Bld) [Mass/Vol] 13.0 g/dL Normal 13.0-17.0 [facility] Comment on above: Performed By: #### C VERÓNICA, CMP ####[address] Lymphocytes (Bld) [#/Vol] 2.3 10*3/uL Normal 1.00-4.8 [facility] Comment on above: Performed By: #### C VERÓNICA, CMP ####[address] Lymphocytes/100 WBC (Bld) 25.0 % Normal . [facility] Comment on above: Performed By: #### C VERÓNICA, CMP ####[address] MCH (RBC) [Entitic mass] 30.5 pg Normal 27.5-35.2 [facility] Comment on above: Performed By: #### C VERÓNICA, CMP ####[address] MCV (RBC) [Entitic vol] 90.6 fL Normal 83.5-101 [facility] Comment on above: Performed By: #### C VERÓNICA, CMP ####[address] Mean Corpuscular HGB Conc 33.7 g/dL Normal 32.5-35.6 [facility] Comment on above: Performed By: #### C VERÓNICA, CMP ####[place] [address] Monocytes (Bld) [#/Vol] 0.9 10*3/uL High 0.0-0.8 [facility] Comment on above: Performed By: #### C VERÓNICA, CMP ####[address] Monocytes/100 WBC (Bld) 9.5 % Normal . [facility] Comment on above: Performed By: #### C VERÓNICA, CMP ####[address] Neutrophils (Bld) [#/Vol] 5.8 10*3/uL Normal 1.8-7.7 [facility] Comment on above: Performed By: #### C VERÓNICA, CMP ####[address] Neutrophils/100 WBC (Bld) 63.3 % Normal . [facility] Comment on above: Performed By: #### C VERÓNICA, CMP ####[address] NRBC% 0.1 /100{WBC} Normal 0-0.5 [facility] Comment on above: Performed By: #### C VERÓNICA, CMP ####[address] Platelet mean volume (Bld) [Entitic vol] 8.1 fL Normal 6.6-10.1 [facility] Comment on above: Performed By: #### C VERÓNICA, CMP ####[address] Platelets (Bld) [#/Vol] 220 10*3/uL Normal 150-450 [facility] Comment on above: Performed By: #### C VERÓNICA, CMP ####[address] RBC (Bld) [#/Vol] 4.26 10*6/uL Normal 3.90-5.60 [facility] Comment on above: Performed By: #### C VERÓNICA, CMP ####[place] [phone] [facility] WBC (Bld) [#/Vol] 9.2 10*3/uL Normal 4.1-10.5 [facility] Comment on above: Performed By: #### C BC, CMP ####[address] [address] [facility] Comprehensive Metabolic Pane rc 07-30-2024 Albumin [Mass/Vol] 3.2 g/dL Low 3.5-5.7 [facility] Comment on above: Performed By: #### C BC, CMP ####[place] [phone] [facility] Albumin/Globulin [Mass ratio] 1.3 {ratio} Normal [facility] Comment on above: Performed By: #### C BC, CMP ####[place] [phone] [facility] ALP [Catalytic activity/Vol] 50 U/L Normal 34-104 [facility] Comment on above: Performed By: #### C BC, CMP ####[place] [phone] [facility] ALT [Catalytic activity/Vol] 19 U/L Normal 7-52 [facility] Comment on above: Performed By: #### C VERÓNICA, CMP ####[place] [phone] [facility] Anion gap [Moles/Vol] 9.8 mmol/L Normal 6.0-15.0 [facility] Comment on above: Performed By: #### C BC, CMP ####[place] [phone] [facility] AST [Catalytic activity/Vol] 18 U/L Normal 13-39 [facility] Comment on above: Performed By: #### C BC, CMP ####[place] [phone] [facility] Bilirubin [Mass/Vol] 0.8 mg/dL Normal 0.3-1.0 [facility] Comment on above: Performed By: #### C BC, CMP ####[address] [address] [facility] Calcium [Mass/Vol] 9.1 mg/dL Normal 8.6-10.3 [facility] Comment on above: Performed By: #### C BC, CMP ####[address] Chloride [Moles/Vol] 103 mmol/L Normal 98-107 [facility] Comment on above: Performed By: #### C BC, CMP ####[address] CO2 [Moles/Vol] 33.6 mmol/L High 21.0-31.0 [facility] Comment on above: Performed By: #### C BC, CMP ####[address] Creatinine [Mass/Vol] 1.00 mg/dL Normal 0.70-1.30 [facility] Comment on above: Performed By: #### C BC, CMP ####[address] Creatinine Clr Calc Pharmacy 80.23 Normal [facility] Comment on above: Result Comment: PERF ORMED BY:[address] [place], [place] [phone] MEDICAL DIRECTORRHONDA MCLEAN M.D. Performed By: #### C BC, CMP ####[place] [phone] [facility] GFR/1.73 sq M.predicted MDRD (S/P/Bld) [Vol rate/Area] mL/min/{1.73_m2} Normal [facility] Comment on above: Performed By: #### C BC, CMP ####[address] Globulin (S) [Mass/Vol] 2.5 g/dL Normal [facility] Comment on above: Performed By: #### C BC, CMP ####[address] Glucose [Mass/Vol] 99 mg/dL Normal 70-100 [facility] Comment on above: Result Comment: [place] Glucose Reference Range is dependent on time and content of last meal. Glucose of more than 200 mg/dL in a nonstressed, ambulatory subject supports the diagnosis of Diabetes Mellitus. ADA recommended reference range Performed By: #### C BC, CMP ####[address] [address] [facility] Potassium [Moles/Vol] 3.4 mmol/L Low 3.5-5.1 [facility] Comment on above: Performed By: #### C BC, CMP ####[address] [address] [facility] Protein [Mass/Vol] 5.7 g/dL Low 6.4-8.9 [facility] Comment on above: Performed By: #### C BC, CMP ####[address] [address] [facility] Sodium [Moles/Vol] 143 mmol/L Normal 136-145 [facility] Comment on above: Performed By: #### C BC, CMP ####[address] [address] [facility] Urea nitrogen [Mass/Vol] 20 mg/dL Normal 7-25 [facility] Comment on above: Performed By: #### C BC, CMP ####[address] [address] [facility] CT lumbar spine wo conon CT lumbar spine wo con Normal Th e [facility] Complete Blood Count Auto Di ffon 07-29-2024 Basophils (Bld) [#/Vol] 0.0 10*3/uL Normal 0.0-0.2 [facility] Comment on above: Result Comment: PERF ORMED BY:[place] [address] [place], [place] [phone] MEDICAL DIRECTORRHONDA MCLEAN M.D. Performed By: #### P HOS, CMP, CBC, MG ####[address] [address] [place] Basophils/100 WBC (Bld) 0.4 % Normal . [facility] Comment on above: Performed By: #### P HOS, CMP, CBC, MG ####[address] Eosinophils (Bld) [#/Vol] 0.1 10*3/uL Normal 0.0-0.45 [facility] Comment on above: Performed By: #### P HOS, CMP, CBC, MG ####[address] Eosinophils/100 WBC (Bld) 0.9 % Normal . [facility] Comment on above: Performed By: #### P HOS, CMP, CBC, MG ####[address] Erythrocyte distribution width (RBC) [Ratio] 15.2 % High 12.0-14.8 [facility] Comment on above: Performed By: #### P HOS, CMP, CBC, MG ####[address] Hematocrit (Bld) [Volume fraction] 39.0 % Normal 38.8-50.0 [facility] Comment on above: Performed By: #### P HOS, CMP, CBC, MG ####[address] Hemoglobin (Bld) [Mass/Vol] 13.2 g/dL Normal 13.0-17.0 [facility] Comment on above: Performed By: #### P HOS, CMP, CBC, MG ####[address] Lymphocytes (Bld) [#/Vol] 1.9 10*3/uL Normal 1.00-4.8 [facility] Comment on above: Performed By: #### P HOS, CMP, CBC, MG ####[address] Lymphocytes/100 WBC (Bld) 23.4 % Normal . [facility] Comment on above: Performed By: #### P HOS, CMP, CBC, MG ####[address] MCH (RBC) [Entitic mass] 30.5 pg Normal 27.5-35.2 [facility] Comment on above: Performed By: #### P HOS, CMP, CBC, MG ####[address] MCV (RBC) [Entitic vol] 90.5 fL Normal 83.5-101 [facility] Comment on above: Performed By: #### P HOS, CMP, CBC, MG ####[address] Mean Corpuscular HGB Conc 33.7 g/dL Normal 32.5-35.6 [facility] Comment on above: Performed By: #### P HOS, CMP, CBC, MG ####[address] Monocytes (Bld) [#/Vol] 1.1 10*3/uL High 0.0-0.8 [facility] Comment on above: Performed By: #### P HOS, CMP, CBC, MG ####[address] Monocytes/100 WBC (Bld) 13.3 % Normal . [facility] Comment on above: Performed By: #### P HOS, CMP, CBC, MG ####[address] Neutrophils (Bld) [#/Vol] 5.2 10*3/uL Normal 1.8-7.7 [facility] Comment on above: Performed By: #### P HOS, CMP, CBC, MG ####[address] Neutrophils/100 WBC (Bld) 62.0 % Normal . [facility] Comment on above: Performed By: #### P HOS, CMP, CBC, MG ####[address] NRBC% 0.1 /100{WBC} Normal 0-0.5 [facility] Comment on above: Performed By: #### P HOS, CMP, CBC, MG ####[address] Platelet mean volume (Bld) [Entitic vol] 8.4 fL Normal 6.6-10.1 [facility] Comment on above: Performed By: #### P HOS, CMP, CBC, MG ####[address] Platelets (Bld) [#/Vol] 217 10*3/uL Normal 150-450 [facility] Comment on above: Performed By: #### P HOS, CMP, CBC, MG ####[address] RBC (Bld) [#/Vol] 4.31 10*6/uL Normal 3.90-5.60 [facility] Comment on above: Performed By: #### P HOS, CMP, CBC, MG ####[address] WBC (Bld) [#/Vol] 8.3 10*3/uL Normal 4.1-10.5 [facility] Comment on above: Performed By: #### P HOS, CMP, CBC, MG ####[address] Comprehensive Metabolic Pane rc 07-29-2024 Albumin [Mass/Vol] 3.2 g/dL Low 3.5-5.7 [facility] Comment on above: Performed By: #### P HOS, CMP, CBC, MG ####[address] Albumin/Globulin [Mass ratio] 1.2 {ratio} Normal [facility] Comment on above: Performed By: #### P HOS, CMP, CBC, MG ####[address] ALP [Catalytic activity/Vol] 49 U/L Normal 34-104 [facility] Comment on above: Performed By: #### P HOS, CMP, CBC, MG ####[place] [id number] [place] [phone] [facility] ALT [Catalytic activity/Vol] 18 U/L Normal 7-52 [facility] Comment on above: Performed By: #### P HOS, CMP, CBC, MG ####[place] [phone] [facility] Anion gap [Moles/Vol] 11.3 mmol/L Normal 6.0-15.0 [facility] Comment on above: Performed By: #### P HOS, CMP, CBC, MG ####[place] [phone] [facility] AST [Catalytic activity/Vol] 19 U/L Normal 13-39 [facility] Comment on above: Performed By: #### P HOS, CMP, CBC, MG ####[place] [phone] [facility] Bilirubin [Mass/Vol] 0.8 mg/dL Normal 0.3-1.0 [facility] Comment on above: Performed By: #### P HOS, CMP, CBC, MG ####[place] [phone] [facility] Calcium [Mass/Vol] 9.1 mg/dL Normal 8.6-10.3 [facility] Comment on above: Performed By: #### P HOS, CMP, CBC, MG ####[place] [phone] [facility] Chloride [Moles/Vol] 102 mmol/L Normal 98-107 [facility] Comment on above: Performed By: #### P HOS, CMP, CBC, MG ####[place] [phone] [facility] CO2 [Moles/Vol] 34.0 mmol/L High 21.0-31.0 [facility] Comment on above: Performed By: #### P HOS, CMP, CBC, MG ####[place] [phone] [facility] Creatinine [Mass/Vol] 1.09 mg/dL Normal 0.70-1.30 [facility] Comment on above: Performed By: #### P HOS, CMP, CBC, MG ####[place] [id number] Creatinine Clr Calc Pharmacy 73.15 Normal [facility] Comment on above: Performed By: #### P HOS, CMP, CBC, MG ####[address] GFR/1.73 sq M.predicted MDRD (S/P/Bld) [Vol rate/Area] mL/min/{1.73_m2} Normal [facility] Comment on above: Performed By: #### P HOS, CMP, CBC, MG ####[place] [id number] Globulin (S) [Mass/Vol] 2.6 g/dL Normal [facility] Comment on above: Performed By: #### P HOS, CMP, CBC, MG ####[address] Glucose [Mass/Vol] 98 mg/dL Normal 70-100 [facility] Comment on above: Result Comment: [facility] Glucose Reference Range is dependent on time and content of last meal. Glucose of more than 200 mg/dL in a nonstressed, ambulatory subject supports the diagnosis of Diabetes Mellitus. ADA recommended reference range Performed By: #### P HOS, CMP, CBC, MG ####[address] Potassium [Moles/Vol] 3.3 mmol/L Low 3.5-5.1 [facility] Comment on above: Performed By: #### P HOS, CMP, CBC, MG ####[address] Protein [Mass/Vol] 5.8 g/dL Low 6.4-8.9 [facility] Comment on above: Performed By: #### P HOS, CMP, CBC, MG ####[address] Sodium [Moles/Vol] 144 mmol/L Normal 136-145 [facility] Comment on above: Performed By: #### P HOS, CMP, CBC, MG ####[address] [place] [address] [facility] Urea nitrogen [Mass/Vol] 23 mg/dL Normal 7-25 [facility] Comment on above: Performed By: #### P HOS, CMP, CBC, MG ####[address] [place] [address] [facility] Magnesiumon 07-29-2024 Magnesium [Mass/Vol] 1.8 mg/dL Low 1.9-2.7 [facility] Comment on above: Result Comment: PERF ORMED BY:[address] [place], [place] [id number] MEDICAL DIRECTORRHONDA MCLEAN M.D. Performed By: #### P HOS, CMP, CBC, MG ####[id number] [facility] Phosphate [Mass/volume] in [place] or PlasmaOrdered By: Kamaljit Melo on 07-29-2024 Phosphate [Mass/Vol] Phosphate [Mass/vol ume] in Serum or Plasma 2.5-4.5 [facility] Phosphoruson 07-29-2024 Phosphate [Mass/Vol] 3.4 mg/dL Normal 2.5-4.5 [facility] Comment on above: Performed By: #### P HOS, CMP, CBC, MG ####[id number] [facility] Appearance of UrineOrdered B y: Juli Thomas on 07-28-2024 Appearance (U) Urine appearance Clear [facility] B-Type Natriuretic Peptideon 07-28-2024 Natriuretic peptide B (Bld) [Mass/Vol] 142.0 pg/mL High 5-100 [facility] Comment on above: Result Comment: PERF ORMED BY:[address] [place], [place] [phone] MEDICAL DIRECTORRHONDA MCLEAN M.D. Performed By: #### P HOS, MG, BNP, HS TROP, CMP, PTT, PT, CBC ####[address] [place] [address] [facility] Bacteria [Presence] in Urine by AutomatedOrdered By: Juli Thomas on 07-28-2024 Bacteria Auto Ql (U) Bacteria [Presence] in Urine by Automated None Seen [facility] Bilirubin Test strip Ql (U)O rdered By: Juli Thomas on 07-28-2024 Bilirubin Ql (U) Bilirubin.total [Pre sence] in Urine by Test strip Negative [facility] CT cervical spine wo conon 1 09-28-2023 CT cervical spine wo con Normal [facility] Color Auto (U)Ordered By: Goyo Thomas on 07-28-2024 Color (U) Color of Urine by Auto Yellow Fi [facility] Complete Blood Count Auto Di ffon 07-28-2024 Basophils (Bld) [#/Vol] 0.1 10*3/uL Normal 0.0-0.2 [facility] Comment on above: Result Comment: PERF ORMED BY:[address] [place], [place] [phone] MEDICAL DIRECTORRHONDA MCLEAN M.D. Performed By: #### P HOS, MG, BNP, HS TROP, CMP, PTT, PT, CBC ####[id number] [facility] Basophils/100 WBC (Bld) 0.9 % Normal . [facility] Comment on above: Performed By: #### P HOS, MG, BNP, HS TROP, CMP, PTT, PT, CBC ####[id number] [facility] Eosinophils (Bld) [#/Vol] 0.0 10*3/uL Normal 0.0-0.45 [facility] Comment on above: Performed By: #### P HOS, MG, BNP, HS TROP, CMP, PTT, PT, CBC ####[id number] [facility] Eosinophils/100 WBC (Bld) 0.2 % Normal . [facility] Comment on above: Performed By: #### P HOS, MG, BNP, HS TROP, CMP, PTT, PT, CBC ####[address] Erythrocyte distribution width (RBC) [Ratio] 15.1 % High 12.0-14.8 [facility] Comment on above: Performed By: #### P HOS, MG, BNP, HS TROP, CMP, PTT, PT, CBC ####[address] Hematocrit (Bld) [Volume fraction] 38.9 % Normal 38.8-50.0 [facility] Comment on above: Performed By: #### P HOS, MG, BNP, HS TROP, CMP, PTT, PT, CBC ####[address] Hemoglobin (Bld) [Mass/Vol] 13.1 g/dL Normal 13.0-17.0 [facility] Comment on above: Performed By: #### P HOS, MG, BNP, HS TROP, CMP, PTT, PT, CBC ####[address] Lymphocytes (Bld) [#/Vol] 0.7 10*3/uL Low 1.00-4.8 [facility] Comment on above: Performed By: #### P HOS, MG, BNP, HS TROP, CMP, PTT, PT, CBC ####[address] Lymphocytes/100 WBC (Bld) 5.7 % Normal . [facility] Comment on above: Performed By: #### P HOS, MG, BNP, HS TROP, CMP, PTT, PT, CBC ####[address] MCH (RBC) [Entitic mass] 30.4 pg Normal 27.5-35.2 [facility] Comment on above: Performed By: #### P HOS, MG, BNP, HS TROP, CMP, PTT, PT, CBC ####[place] [address] MCV (RBC) [Entitic vol] 90.3 fL Normal 83.5-101 [facility] Comment on above: Performed By: #### P HOS, MG, BNP, HS TROP, CMP, PTT, PT, CBC ####[address] Mean Corpuscular HGB Conc 33.7 g/dL Normal 32.5-35.6 [facility] Comment on above: Performed By: #### P HOS, MG, BNP, HS TROP, CMP, PTT, PT, CBC ####[address] Monocytes (Bld) [#/Vol] 1.1 10*3/uL High 0.0-0.8 [facility] Comment on above: Performed By: #### P HOS, MG, BNP, HS TROP, CMP, PTT, PT, CBC ####[address] Monocytes/100 WBC (Bld) 20.19 % High 0.00-20.00 [facility] Comment on above: Result Comment: For adults in ED, MDW > 20.0 may be associated with a higher risk of sepsis during the first 12 hrs of hospital admission Performed By: #### P HOS, MG, BNP, HS TROP, CMP, PTT, PT, CBC ####[address] Monocytes/100 WBC (Bld) 8.7 % Normal . [facility] Comment on above: Performed By: #### P HOS, MG, BNP, HS TROP, CMP, PTT, PT, CBC ####[address] Neutrophils (Bld) [#/Vol] 10.6 10*3/uL High 1.8-7.7 [facility] Comment on above: Performed By: #### P HOS, MG, BNP, HS TROP, CMP, PTT, PT, CBC ####[address] Neutrophils/100 WBC (Bld) 84.5 % Normal . [facility] Comment on above: Performed By: #### P HOS, MG, BNP, HS TROP, CMP, PTT, PT, CBC ####[address] NRBC% 0.2 /100{WBC} Normal 0-0.5 [facility] Comment on above: Performed By: #### P HOS, MG, BNP, HS TROP, CMP, PTT, PT, CBC ####[address] Platelet mean volume (Bld) [Entitic vol] 8.6 fL Normal 6.6-10.1 [facility] Comment on above: Performed By: #### P HOS, MG, BNP, HS TROP, CMP, PTT, PT, CBC ####[address] Platelets (Bld) [#/Vol] 234 10*3/uL Normal 150-450 [facility] Comment on above: Performed By: #### P HOS, MG, BNP, HS TROP, CMP, PTT, PT, CBC ####[address] RBC (Bld) [#/Vol] 4.31 10*6/uL Normal 3.90-5.60 [facility] Comment on above: Performed By: #### P HOS, MG, BNP, HS TROP, CMP, PTT, PT, CBC ####[address] WBC (Bld) [#/Vol] 12.5 10*3/uL High 4.1-10.5 [facility] Comment on above: Performed By: #### P HOS, MG, BNP, HS TROP, CMP, PTT, PT, CBC ####[address] Comprehensive Metabolic Pane rc 07-28-2024 Albumin [Mass/Vol] 3.4 g/dL Low 3.5-5.7 [facility] Comment on above: Performed By: #### P HOS, MG, BNP, HS TROP, CMP, PTT, PT, CBC ####[address] Albumin/Globulin [Mass ratio] 1.2 {ratio} Normal [facility] Comment on above: Performed By: #### P HOS, MG, BNP, HS TROP, CMP, PTT, PT, CBC ####[address] ALP [Catalytic activity/Vol] 57 U/L Normal 34-104 [facility] Comment on above: Performed By: #### P HOS, MG, BNP, HS TROP, CMP, PTT, PT, CBC ####[address] ALT [Catalytic activity/Vol] 22 U/L Normal 7-52 [facility] Comment on above: Performed By: #### P HOS, MG, BNP, HS TROP, CMP, PTT, PT, CBC ####[address] Anion gap [Moles/Vol] 13.5 mmol/L Normal 6.0-15.0 [facility] Comment on above: Performed By: #### P HOS, MG, BNP, HS TROP, CMP, PTT, PT, CBC ####[address] AST [Catalytic activity/Vol] 20 U/L Normal 13-39 [facility] Comment on above: Performed By: #### P HOS, MG, BNP, HS TROP, CMP, PTT, PT, CBC ####[address] Bilirubin [Mass/Vol] 0.7 mg/dL Normal 0.3-1.0 [facility] Comment on above: Performed By: #### P HOS, MG, BNP, HS TROP, CMP, PTT, PT, CBC ####[address] Calcium [Mass/Vol] 9.1 mg/dL Normal 8.6-10.3 [facility] Comment on above: Performed By: #### P HOS, MG, BNP, HS TROP, CMP, PTT, PT, CBC ####[address] Chloride [Moles/Vol] 100 mmol/L Normal 98-107 [facility] Comment on above: Performed By: #### P HOS, MG, BNP, HS TROP, CMP, PTT, PT, CBC ####[address] CO2 [Moles/Vol] 29.9 mmol/L Normal 21.0-31.0 [facility] Comment on above: Performed By: #### P HOS, MG, BNP, HS TROP, CMP, PTT, PT, CBC ####[address] Creatinine [Mass/Vol] 1.20 mg/dL Normal 0.70-1.30 [facility] Comment on above: Performed By: #### P HOS, MG, BNP, HS TROP, CMP, PTT, PT, CBC ####[address] Creatinine Clr Calc Pharmacy 67.69 Normal [facility] Comment on above: Performed By: #### P HOS, MG, BNP, HS TROP, CMP, PTT, PT, CBC ####[address] GFR/1.73 sq M.predicted MDRD (S/P/Bld) [Vol rate/Area] mL/min/{1.73_m2} Normal [facility] Comment on above: Performed By: #### P HOS, MG, BNP, HS TROP, CMP, PTT, PT, CBC ####[address] Globulin (S) [Mass/Vol] 2.8 g/dL Normal [facility] Comment on above: Performed By: #### P HOS, MG, BNP, HS TROP, CMP, PTT, PT, CBC ####[address] Glucose [Mass/Vol] 151 mg/dL High 70-100 [facility] Comment on above: Result Comment: [facility] Glucose Reference Range is dependent on time and content of last meal. Glucose of more than 200 mg/dL in a nonstressed, ambulatory subject supports the diagnosis of Diabetes Mellitus. ADA recommended reference range Performed By: #### P HOS, MG, BNP, HS TROP, CMP, PTT, PT, CBC ####[address] Potassium [Moles/Vol] 3.4 mmol/L Low 3.5-5.1 [facility] Comment on above: Performed By: #### P HOS, MG, BNP, HS TROP, CMP, PTT, PT, CBC ####[address] Protein [Mass/Vol] 6.2 g/dL Low 6.4-8.9 [facility] Comment on above: Performed By: #### P HOS, MG, BNP, HS TROP, CMP, PTT, PT, CBC ####[address] Sodium [Moles/Vol] 140 mmol/L Normal 136-145 [facility] Comment on above: Performed By: #### P HOS, MG, BNP, HS TROP, CMP, PTT, PT, CBC ####[id number] [facility] Urea nitrogen [Mass/Vol] 28 mg/dL High 7-25 [facility] Comment on above: Performed By: #### P HOS, MG, BNP, HS TROP, CMP, PTT, PT, CBC ####[id number] [facility] Dipstick and Microscopicon 1 09-28-2023 Appearance (U) Clear Normal Clear [facility] Comment on above: Order Comment: Name Collection Type:: Clean-Voided Midstream Performed By: #### A DDONUAPLUS ####[id number] [facility] Bacteria,Urine None Seen Normal None Seen [facility] Comment on above: Order Comment: Name Collection Type:: Clean-Voided Midstream Performed By: #### A DDONUAPLUS ####[address] [address] [facility] Bilirubin,Urine Negative Normal Negative [facility] Comment on above: Order Comment: Name Collection Type:: Clean-Voided Midstream Performed By: #### A DDONUAPLUS ####[address] [address] [facility] Color (U) Colorless Normal Yellow [facility] Comment on above: Order Comment: Name Collection Type:: Clean-Voided Midstream Performed By: #### A DDONUAPLUS ####[address] [address] [facility] Glucose Ql (U) Normal Normal Normal [facility] Comment on above: Order Comment: Name Collection Type:: Clean-Voided Midstream Performed By: #### A DDONUAPLUS ####[address] [address] [facility] Hyaline Casts,Urine None Normal 0-8 [facility] Comment on above: Order Comment: Name Collection Type:: Clean-Voided Midstream Result Comment: PERF ORMED BY:[address] [place], [place] [phone] MEDICAL DIRECTORRHONDA MCLEAN M.D. Performed By: #### A DDONUAPLUS ####[address] [address] [facility] Ketones Ql (U) Negative Normal Negative [facility] Comment on above: Order Comment: Name Collection Type:: Clean-Voided Midstream Performed By: #### A DDONUAPLUS ####[address] [address] [facility] Leukocyte esterase Test strip Ql (U) Negative Normal Negative [facility] Comment on above: Order Comment: Name Collection Type:: Clean-Voided Midstream Performed By: #### A DDONUAPLUS ####[address] [address] [facility] Nitrite,Urine Negative Normal Negative [facility] Comment on above: Order Comment: Name Collection Type:: Clean-Voided Midstream Performed By: #### A DDONUAPLUS ####[address] [address] [facility] Occult Blood,Urine Trace High Negative [facility] Comment on above: Order Comment: Name Collection Type:: Clean-Voided Midstream Result Comment: PERF ORMED BY:[address] [place], [place] [phone] MEDICAL DIRECTORRHONDA MCLEAN M.D. Performed By: #### A DDONUAPLUS ####[address] [address] [facility] pH (U) 6.5 [pH] Normal 5.0-9.0 [facility] Comment on above: Order Comment: Name Collection Type:: Clean-Voided Midstream Performed By: #### A DDONUAPLUS ####[id number] [facility] Protein,Urine Negative Normal Negative [facility] Comment on above: Order Comment: Name Collection Type:: Clean-Voided Midstream Performed By: #### A DDONUAPLUS ####[id number] [facility] RBC,Urine 1 [HPF] Normal 0-4 [facility] Comment on above: Order Comment: Name Collection Type:: Clean-Voided Midstream Performed By: #### A DDONUAPLUS ####[id number] [facility] Specificy Byron,Urine 1.006 Normal 1.001-1.03 0 [facility] Comment on above: Order Comment: Name Collection Type:: Clean-Voided Midstream Performed By: #### A DDONUAPLUS ####[id number] [facility] Urobilinogen,Urine Normal Normal Normal [facility] Comment on above: Order Comment: Name Collection Type:: Clean-Voided Midstream Performed By: #### A DDONUAPLUS ####[address] [place] [address] [facility] WBC,Urine 1 [HPF] Normal 0-4 [facility] Comment on above: Order Comment: Name Collection Type:: Clean-Voided Midstream Performed By: #### A DDONUAPLUS ####[facility] [id number] [place] [address] [facility] ECG 12 lead ECGon 07-28-2024 ECG 12 lead ECG Normal [facility] Epithelial cells.squamous [# /area] in Urine sediment by Automated countOrdered By: Juli Thomas on 07-28-2024 Epithelial cells.squamous Auto (Urine sed) [#/Area] Epithelial cells.squamous [#/area] in Urine sediment by Automated count [facility] Erythrocytes [#/area] in Uri ne sediment by Automated countOrdered By: Juli Thomas on 07-28-2024 RBC Auto (Urine sed) [#/Area] Erythrocytes [#/area] in Urine sediment by Automated count 0-4 [facility] Glucose Glucometer (BldC) [M ass/Vol]Ordered By: Juli Thomas on 07-28-2024 Glucose [Mass/Vol] Capillary blood gluc ose measurement by glucometer (mass/volume) [facility] Glucose Poct Glucometerson 1 09-28-2023 Glucose [Mass/Vol] 172 mg/dL Normal [facility] Comment on above: Result Comment: [place] Glucose Reference Range is dependent on time and content of last meal. Glucose of more than 200 mg/dL in a nonstressed, ambulatory subject supports the diagnosis of Diabetes Mellitus.PERFORMED BY:[facility] [place], [place] [phone] MEDICAL DIRECTORRHONDA MCLEAN M.D. Performed By: #### G ANASTASIIA ####Point of Care testing, Glucose [Mass/volume] in Uri ne by Test stripOrdered By: Juli Thomas on 07-28-2024 Glucose Test strip (U) [Mass/Vol] Glucose [Mass/volume] in Urine by Test strip Normal [facility] Hemoglobin Test strip Ql (U) Ordered By: Juli Thomas on 07-28-2024 Hemoglobin Ql (U) Hemoglobin [Presence ] in Urine by Test strip High Negative [facility] Hyaline casts [#/area] in Ur ine sediment by Automated countOrdered By: Juli Thomas on 07-28-2024 Hyaline casts Auto (Urine sed) [#/Area] Hyaline casts [#/area] in Urine sediment by Automated count 0-8 [facility] INR in Platelet poor plasma by Coagulation assayOrdered By: Juli Thomas on 07-28-2024 INR Coag (PPP) [Relative time] INR in Platelet poor plasma by Coagulation assay [facility] Ketones Test strip Ql (U)Ord ered By: Juli Thomas on 07-28-2024 Ketones Ql (U) Ketones [Presence] i n Urine by Test strip Negative [facility] Leukocyte esterase [Presence ] in Urine by Test stripOrdered By: Juli Thomas on 07-28-2024 Leukocyte esterase Test strip Ql (U) Leukocyte esterase [Presence] in Urine by Test strip Negative [facility] Leukocytes [#/area] in Urine sediment by Automated countOrdered By: Juli Thomas on 07-28-2024 WBC Auto (Urine sed) [#/Area] Leukocytes [#/area] in Urine sediment by Automated count 0-4 [facility] Magnesiumon 07-28-2024 Magnesium [Mass/Vol] 1.5 mg/dL Low 1.9-2.7 [facility] Comment on above: Result Comment: PERF ORMED BY:[address] [place], [place] [phone] MEDICAL DIRECTORRHONDA MCLEAN M.D. Performed By: #### P HOS, MG, BNP, HS TROP, CMP, PTT, PT, CBC ####[address] [address] [facility] Monocyte distribution width [Entitic volume] in Blood by AutomatedOrdered By: Juli Thomas on 07-28-2024 Monocyte distribution width Auto (Bld) [Entitic vol] Monocyte distribution width [Entitic volume] in Blood by Automated High 0.00-20.00 [facility] Natriuretic peptide B [Mass/ Vol]Ordered By: Juli Thomas on 07-28-2024 Natriuretic peptide B (Bld) [Mass/Vol] BNP ser/plas High 5-100 [facility] Nitrite Test strip Ql (U)Ord ered By: Juli Thomas on 07-28-2024 Nitrite Ql (U) Nitrite [Presence] i n Urine by Test strip Negative [facility] Partial Thromboplastin Timeo n 07-28-2024 aPTT Coag (Bld) [Time] 26.3 s Normal 25.1-36.5 [facility] Comment on above: Result Comment: A he matocrit value greater than 55% may lead to inaccurate results in coagulation testing. Patients having hematocrit values >55% require a special collection tube for coagulation studies. Please contact the laboratory at [phone] for redraw instructions.PERFORMED BY:[address] [place], [place] [phone] MEDICAL DIRECTORRHONDA MCLEAN M.D. Performed By: #### P HOS, MG, BNP, HS TROP, CMP, PTT, PT, CBC ####[address] [address] [facility] Phosphoruson 07-28-2024 Phosphate [Mass/Vol] 2.8 mg/dL Normal 2.5-4.5 [facility] Comment on above: Performed By: #### P HOS, MG, BNP, HS TROP, CMP, PTT, PT, CBC ####[address] [address] [facility] Protein Test strip (U) [Mass /Vol]Ordered By: Juli Thomas on 07-28-2024 Protein (U) [Mass/Vol] Protein [Mass/vol ume] in Urine by Test strip Negative [facility] Prothrombin Time INRon 07-28 INR Coag (PPP) [Relative time] 1.4 {INR} Normal [facility] Comment on above: Result Comment: [...] valves: 3 - 4.5 Performed By: #### P HOS, MG, BNP, HS TROP, CMP, PTT, PT, CBC ####[address] [place] [address] [facility] PT Coag (PPP) [Time] 16.0 s High 9.0-12.9 [facility] Comment on above: Result Comment: A he matocrit value greater than 55% may lead to inaccurate results in coagulation testing. Patients having hematocrit values >55% require a special collection tube for coagulation studies. Please contact the laboratory at [phone] for redraw instructions. Performed By: #### P HOS, MG, BNP, HS TROP, CMP, PTT, PT, CBC ####[address] [address] [facility] Prothrombin time (PT)Ordered By: Juli Thomas on 07-28-2024 PT Coag (PPP) [Time] Prothrombin time (PT) High 9.0- 12.9 [facility] Specific gravity Test strip (U) [Rel density]Ordered By: Juli Thomas on 07-28-2024 Specific gravity (U) [Rel density] Specific gravity of Urine by Test strip 1.001-1.03 0 [facility] Troponin I High Sensitivityo n 07-28-2024 Troponin I High Sensitivity 11.2 pg/mL Normal 0.0-20.0 [facility] Comment on above: Result Comment: PERF ORMED BY:[address] [place], [place] [phone] MEDICAL DIRECTORRHONDA MCLEAN M.D. Performed By: #### H S TROP ####[address] [address] [facility] Troponin I High Sensitivity 11.1 pg/mL Normal 0.0-20.0 [facility] Comment on above: Result Comment: PERF ORMED BY:[address] [place], [place] [phone] MEDICAL DIRECTORRHONDA MCLEAN M.D. Performed By: #### P HOS, MG, BNP, HS TROP, CMP, PTT, PT, CBC ####[facility] [id number] [facility] Troponin I.cardiac [Mass/vol ume] in Serum or Plasma by Detection limit <= 0.01 ng/Ordered By: Juli Thomas on 07-28-2024 Troponin I.cardiac DL <= 0.01 ng/mL [Mass/Vol] Troponin I.cardiac [Mass/volume] in Serum or Plasma by Detection limit <= 0.01 ng/ 0.0-20.0 [facility] Urobilinogen Test strip (U) [Mass/Vol]Ordered By: Juli Thomas on 07-28-2024 Urobilinogen (U) [Mass/Vol] Urobilinogen [Mass/volume] in Urine by Test strip Normal [facility] XR chest 1V portableon 07-28 XR chest 1V portable Normal [facility] aPTT in Platelet poor plasma by Coagulation assayOrdered By: Juli Thomas on 07-28-2024 aPTT Coag (PPP) [Time] Activated partial thromboplastin time (aPTT) in platelet poor plasma by coagulation a 25.1-36.5 [facility] pH Test strip (U)Ordered By: Juli Thomas on 07-28-2024 pH (U) pH of Urine by Test strip 5.0-9.0 [facility] BASIC METABOLIC PANELon Calcium [Mass/Vol] 8.8 mg/dL Normal 8.6-10.3 [facility] Comment on above: Order Comment: FASTI NG:YES FASTING: YES Performed By: #### 1 [id number] #### [facility] [address], [address] [place] [id number] Superintendent Building: Daniele Carlson MD Chloride [Moles/Vol] 103 mmol/L Normal 98-110 [facility] Comment on above: Order Comment: FASTI NG:YES FASTING: YES Performed By: #### 1 3025 #### [facility] [place] [address] Superintendent Building: Daniele Carlson MD CO2 [Moles/Vol] 30 mmol/L Normal 20-32 [facility] Comment on above: Order Comment: FASTI NG:YES FASTING: YES Performed By: #### 1 0165 #### [facility] [place] [address] Superintendent Building: Daniele Carlson MD Creatinine [Mass/Vol] 1.18 mg/dL Normal 0.70-1.22 [facility] Comment on above: Order Comment: FASTI NG:YES FASTING: YES Performed By: #### 1 0165 #### [facility] [place] [address] Superintendent Building: Daniele Carlson MD GFR/1.73 sq M.predicted among non-blacks MDRD (S/P/Bld) [Vol rate/Area] 62 mL/min/{1.73_m2} Normal > OR = 60 [facility] Comment on above: Order Comment: FASTI NG:YES FASTING: YES Performed By: #### 1 0165 #### [facility] [place] [address] Superintendent Building: Daniele Carlson MD Glucose [Mass/Vol] 99 mg/dL Normal 65-99 [facility] Comment on above: Order Comment: FASTI NG:YES FASTING: YES Result Comment: Fasting reference interval Performed By: #### 1 0165 #### [facility] [place] [address] Superintendent Building: Daniele Carlson MD Potassium [Moles/Vol] 3.3 mmol/L Low 3.5-5.[address] [facility] Comment on above: Order Comment: FASTI NG:YES FASTING: YES Performed By: #### 1 0165 #### [facility] [place] [address] Superintendent Building: Daniele Carlson MD Sodium [Moles/Vol] 143 mmol/L Normal 135-146 [facility] Comment on above: Order Comment: FASTI NG:YES FASTING: YES Performed By: #### 1 0165 #### [facility] [address], [address] [place] [address] Superintendent Building: Daniele Carlson MD Urea nitrogen [Mass/Vol] 26 mg/dL High 7-25 [facility] Comment on above: Order Comment: FASTI NG:YES FASTING: YES Performed By: #### 1 0165 #### [facility] [address], [address] [place] [address] Superintendent Building: Daniele Carlson MD Urea nitrogen/Creatinine [Mass ratio] 22 mg/mg Normal 6-22 [facility] Comment on above: Order Comment: FASTI NG:YES FASTING: YES Performed By: #### 1 0165 #### [facility] [address], [address] [place] [address] Superintendent Building: Daniele Carlson MD Basic Metabolic Panel 06-22 Anion gap [Moles/Vol] 9.9 mmol/L Normal 6.0-15.0 [facility] Comment on above: Performed By: #### B MP, MG, CBC ####[place] [address] [place] [address] [facility] Calcium [Mass/Vol] 8.8 mg/dL Normal 8.6-10.3 [facility] Comment on above: Performed By: #### B MP, MG, CBC ####[place] [address] [place] [address] [place] Chloride [Moles/Vol] 109 mmol/L High 98-107 [facility] Comment on above: Performed By: #### B MP, MG, CBC ####[facility] [address] [place] [address] [facility] CO2 [Moles/Vol] 27.4 mmol/L Normal 21.0-31.0 [facility] Comment on above: Performed By: #### B MP, MG, CBC ####[place] [address] [place] [address] [facility] Creatinine [Mass/Vol] 1.08 mg/dL Normal 0.70-1.30 [facility] Comment on above: Performed By: #### B MP, MG, CBC ####[place] [address] Creatinine Clr Calc Pharmacy 75.22 Normal [facility] Comment on above: Performed By: #### B MP, MG, CBC ####[place] [address] [place] [phone] [facility] GFR/1.73 sq M.predicted MDRD (S/P/Bld) [Vol rate/Area] mL/min/{1.73_m2} Normal [facility] Comment on above: Performed By: #### B MP, MG, CBC ####[address] Glucose [Mass/Vol] 93 mg/dL Normal 70-100 [facility] Comment on above: Result Comment: [facility] Glucose Reference Range is dependent on time and content of last meal. Glucose of more than 200 mg/dL in a nonstressed, ambulatory subject supports the diagnosis of Diabetes Mellitus. ADA recommended reference range Performed By: #### B MP, MG, CBC ####[address] Potassium [Moles/Vol] 3.3 mmol/L Low 3.5-5.1 [facility] Comment on above: Performed By: #### B MP, MG, CBC ####[place] [id number] [facility] Sodium [Moles/Vol] 143 mmol/L Significant change down 136-145 [facility] Comment on above: Performed By: #### B MP, MG, CBC ####[place] [address] [place] [phone] [facility] Urea nitrogen [Mass/Vol] 21 mg/dL Normal 7-25 [facility] Comment on above: Performed By: #### B MP, MG, CBC ####[facility] [place], [place] [phone] [facility] Basophils Auto (Bld) [#/Vol] Ordered By: Danie Jaramillo on 07-12-2024 Basophils (Bld) [#/Vol] Automated basophil count 0.0-0.2 [facility] Basophils/100 WBC Auto (Bld) Ordered By: Danie Jaramillo on 07-12-2024 Basophils/100 WBC (Bld) Automated basophil % . [facility] Calcium [Mass/volume] in Ser um or PlasmaOrdered By: Danie Jaramillo on 07-12-2024 Calcium [Mass/Vol] Calcium [Mass/volume ] in Serum or Plasma 8.6-10.3 [facility] Carbon dioxide, total [Moles /volume] in Serum or PlasmaOrdered By: Danie Jaramillo on 07-12-2024 CO2 [Moles/Vol] Carbon dioxide, tota l [Moles/volume] in Serum or Plasma 21.0-31.0 [facility] Chloride [Moles/volume] in [place] or PlasmaOrdered By: Danie Jaramillo on 07-12-2024 Chloride [Moles/Vol] Chloride [Moles/vol ume] in Serum or Plasma High 98-107 [facility] Complete Blood Count Auto Di ffon 07-12-2024 Basophils (Bld) [#/Vol] 0.0 10*3/uL Normal 0.0-0.2 [facility] Comment on above: Result Comment: PERF ORMED BY:[address] [place], [place] [id number] MEDICAL DIRECTORRHONDA MCLEAN M.D. Performed By: #### B MP, MG, CBC ####[place] [phone] [facility] Basophils/100 WBC (Bld) 0.5 % Normal . [facility] Comment on above: Performed By: #### B MP, MG, CBC ####[address] [address] [facility] Eosinophils (Bld) [#/Vol] 0.2 10*3/uL Normal 0.0-0.45 [facility] Comment on above: Performed By: #### B MP, MG, CBC ####[place] [phone] [facility] Eosinophils/100 WBC (Bld) 2.1 % Normal . [facility] Comment on above: Performed By: #### B MP, MG, CBC ####[address] Erythrocyte distribution width (RBC) [Ratio] 14.5 % Normal 12.0-14.8 [facility] Comment on above: Performed By: #### B MP, MG, CBC ####[address] Hematocrit (Bld) [Volume fraction] 36.1 % Low 38.8-50.0 [facility] Comment on above: Performed By: #### B MP, MG, CBC ####[address] Hemoglobin (Bld) [Mass/Vol] 12.2 g/dL Low 13.0-17.0 [facility] Comment on above: Performed By: #### B MP, MG, CBC ####[address] Lymphocytes (Bld) [#/Vol] 1.5 10*3/uL Normal 1.00-4.8 [facility] Comment on above: Performed By: #### B MP, MG, CBC ####[address] Lymphocytes/100 WBC (Bld) 18.6 % Normal . [facility] Comment on above: Performed By: #### B MP, MG, CBC ####[address] MCH (RBC) [Entitic mass] 30.8 pg Normal 27.5-35.2 [facility] Comment on above: Performed By: #### B MP, MG, CBC ####[address] MCV (RBC) [Entitic vol] 91.0 fL Normal 83.5-101 [facility] Comment on above: Performed By: #### B MP, MG, CBC ####[address] [place] [address] [place] Mean Corpuscular HGB Conc 33.8 g/dL Normal 32.5-35.6 [facility] Comment on above: Performed By: #### B MP, MG, CBC ####[address] Monocytes (Bld) [#/Vol] 0.8 10*3/uL Normal 0.0-0.8 [facility] Comment on above: Performed By: #### B MP, MG, CBC ####[address] Monocytes/100 WBC (Bld) 10.5 % Normal . [facility] Comment on above: Performed By: #### B MP, MG, CBC ####[address] Neutrophils (Bld) [#/Vol] 5.5 10*3/uL Normal 1.8-7.7 [facility] Comment on above: Performed By: #### B MP, MG, CBC ####[address] Neutrophils/100 WBC (Bld) 68.3 % Normal . [facility] Comment on above: Performed By: #### B MP, MG, CBC ####[address] NRBC% 0.1 /100{WBC} Normal 0-0.5 [facility] Comment on above: Performed By: #### B MP, MG, CBC ####[address] Platelet mean volume (Bld) [Entitic vol] 8.0 fL Normal 6.6-10.1 [facility] Comment on above: Performed By: #### B MP, MG, CBC ####[address] Platelets (Bld) [#/Vol] 208 10*3/uL Normal 150-450 [facility] Comment on above: Performed By: #### B MP, MG, CBC ####[facility] [address] RBC (Bld) [#/Vol] 3.96 10*6/uL Normal 3.90-5.60 [facility] Comment on above: Performed By: #### B MP, MG, CBC ####[facility] [address] [place] [phone] [facility] WBC (Bld) [#/Vol] 8.1 10*3/uL Normal 4.1-10.5 [facility] Comment on above: Performed By: #### B MP, MG, CBC ####[facility] [address] Creatinine [Mass/volume] in Serum or PlasmaOrdered By: Danie Jaramillo on 07-12-2024 Creatinine [Mass/Vol] Creatinine [Mass/v olume] in Serum or Plasma 0.70-1.30 [facility] Eosinophils Auto (Bld) [#/Vo l]Ordered By: Danie Jaramillo on 07-12-2024 Eosinophils (Bld) [#/Vol] Automated eosinophil count 0.0-0.45 [facility] Eosinophils/100 WBC Auto (Bl d)Ordered By: Danie Jaramillo on 07-12-2024 Eosinophils/100 WBC (Bld) Automated eosinophil % . [facility] Erythrocyte distribution wid th Auto (RBC) [Ratio]Ordered By: Danie Jaramillo on 07-12-2024 Erythrocyte distribution width (RBC) [Ratio] Erythrocyte distribution width [Ratio] by Automated count 12.0-14.8 [facility] Glucose [Mass/volume] in Ser um or PlasmaOrdered By: Danie Jaramillo on 07-12-2024 Glucose [Mass/Vol] Glucose [Mass/volume ] in Serum or Plasma 70-100 [facility] Hematocrit Auto (Bld) [Volum e fraction]Ordered By: Danie Jaramillo on 07-12-2024 Hematocrit (Bld) [Volume fraction] Hematocrit [Volume Fraction] of Blood by Automated count Low 38.8-50.0 [facility] Hemoglobin [Mass/volume] in BloodOrdered By: Danie Jaramillo on 07-12-2024 Hemoglobin (Bld) [Mass/Vol] Hemoglobin [Mass/volume] in Blood Low 13.0-17.0 [facility] Leukocytes [#/volume] correc blessing for nucleated erythrocytes in Blood by Automated counOrdered By: Danie Jaramillo on 07-12-2024 WBC corrected for nucl RBC Auto (Bld) [#/Vol] Leukocytes [#/volume] corrected for nucleated erythrocytes in Blood by Automated coun 4.1-10.5 [facility] Lymphocytes Auto (Bld) [#/Vo l]Ordered By: Danie Jaramillo on 07-12-2024 Lymphocytes (Bld) [#/Vol] Lymphocytes [#/volume] in Blood by Automated count 1.00-4.8 [facility] Lymphocytes/100 WBC Auto (Bl d)Ordered By: Danie Jaramillo on 07-12-2024 Lymphocytes/100 WBC (Bld) Lymphocytes/100 leukocytes in Blood by Automated count . [facility] MCH Auto (RBC) [Entitic mass ]Ordered By: Danie Jaramillo on 07-12-2024 MCH (RBC) [Entitic mass] MCH [Entitic mass] by Automated count 27.5-35.2 [facility] MCHC Auto (RBC) [Mass/Vol]Or dered By: Danie Jaramillo on 07-12-2024 MCHC (RBC) [Mass/Vol] MCHC [Mass/volume] by Automated count 32.5-35.6 [facility] MCV Auto (RBC) [Entitic vol] Ordered By: Danie Jaramillo on 07-12-2024 MCV (RBC) [Entitic vol] MCV [Entitic volume] by Automated count 83.5-101 [facility] Magnesiumon 07-12-2024 Magnesium [Mass/Vol] 1.6 mg/dL Low 1.9-2.7 [facility] Comment on above: Result Comment: PERF ORMED BY:[facility] [place], [place] [phone] MEDICAL DIRECTORRHONDA MCLEAN M.D. Performed By: #### B MP, MG, CBC ####[facility] [place] [address] [facility] Magnesium [Mass/volume] in [place] or PlasmaOrdered By: Danie Jaramillo on 07-12-2024 Magnesium [Mass/Vol] Magnesium [Mass/vol ume] in Serum or Plasma Low 1.9-2.7 [facility] Monocytes Auto (Bld) [#/Vol] Ordered By: Danie Jaramillo on 07-12-2024 Monocytes (Bld) [#/Vol] Automated blood monocyte count 0.0-0.8 [facility] Monocytes/100 WBC Auto (Bld) Ordered By: Danie Jaramillo on 07-12-2024 Monocytes/100 WBC (Bld) Automated monocyte % . [facility] Neutrophils Auto (Bld) [#/Vo l]Ordered By: Danie Jaramillo on 07-12-2024 Neutrophils (Bld) [#/Vol] Neutrophils [#/volume] in Blood by Automated count 1.8-7.7 [facility] Neutrophils/100 WBC Auto (Bl d)Ordered By: Danie Jaramillo on 07-12-2024 Neutrophils/100 WBC (Bld) Automated neutrophil % . [facility] No Panel InformationOrdered By: Danie Jaramillo on 07-12-2024 > 60.0 mL/Min [facility] 75.22 [facility] Nucleated erythrocytes [Pres ence] in Blood by Automated countOrdered By: Danie Jaramillo on 07-12-2024 Nucleated RBC Auto Ql (Bld) Nucleated erythrocytes [Presence] in Blood by Automated count 0-0.5 [facility] Platelet mean volume Auto (B ld) [Entitic vol]Ordered By: Danie Jaramillo on 07-12-2024 Platelet mean volume (Bld) [Entitic vol] Platelet mean volume [Entitic volume] in Blood by Automated count 6.6-10.1 [facility] Platelets Auto (Bld) [#/Vol] Ordered By: Danie Jaramillo on 07-12-2024 Platelets (Bld) [#/Vol] Platelets [#/volume] in Blood by Automated count 150-450 [facility] Potassium [Moles/volume] in Serum or PlasmaOrdered By: Danie Jaramillo on 07-12-2024 Potassium [Moles/Vol] Potassium [Moles/v olume] in Serum or Plasma Low 3.5-5.1 [facility] RBC Auto (Bld) [#/Vol]Ordere d By: Danie Jaramillo on 07-12-2024 RBC (Bld) [#/Vol] Erythrocytes [#/volu me] in Blood by Automated count 3.90-5.60 [facility] Serum or plasma anion gap de terminationOrdered By: Danie Jaramillo on 07-12-2024 Anion gap [Moles/Vol] Serum or plasma an ion gap determination 6.0-15.0 [facility] Sodium [Moles/volume] in Ser um or PlasmaOrdered By: Danie Jaramillo on 07-12-2024 Sodium [Moles/Vol] Sodium [Moles/volume ] in Serum or Plasma Significant change down 136-145 [facility] Urea nitrogen [Mass/volume] in Serum or PlasmaOrdered By: Danie Jaramillo on 07-12-2024 Urea nitrogen [Mass/Vol] Urea nitrogen [Mass/volume] in Serum or Plasma 7-25 [facility] WBC Auto (Bld) [#/Vol]Ordere d By: Danie Jaramillo on 07-12-2024 WBC (Bld) [#/Vol] Leukocytes [#/volume ] in Blood by Automated count 4.1-10.5 [facility] Basic Metabolic Panelon 06-22 Anion gap [Moles/Vol] Not performed Normal 6.0-15.0 [facility] Comment on above: Performed By: #### C BC, MG, BMP ####[address] Calcium [Mass/Vol] 8.9 mg/dL Normal 8.6-10.3 [facility] Comment on above: Performed By: #### C BC, MG, BMP ####[place] [address] [place] [phone] [facility] Chloride [Moles/Vol] 110 mmol/L High 98-107 [facility] Comment on above: Performed By: #### C BC, MG, BMP ####[place] [id number] [facility] CO2 [Moles/Vol] 27.8 mmol/L Normal 21.0-31.0 [facility] Comment on above: Performed By: #### C BC, MG, BMP ####[address] Creatinine [Mass/Vol] 1.07 mg/dL Normal 0.70-1.30 [facility] Comment on above: Performed By: #### C BC, MG, BMP ####[address] Creatinine Clr Calc Pharmacy 75.55 Normal [facility] Comment on above: Performed By: #### C BC, MG, BMP ####[address] GFR/1.73 sq M.predicted MDRD (S/P/Bld) [Vol rate/Area] mL/min/{1.73_m2} Normal [facility] Comment on above: Performed By: #### C BC, MG, BMP ####[address] Glucose [Mass/Vol] 100 mg/dL Normal 70-100 [facility] Comment on above: Result Comment: [place] Glucose Reference Range is dependent on time and content of last meal. Glucose of more than 200 mg/dL in a nonstressed, ambulatory subject supports the diagnosis of Diabetes Mellitus. ADA recommended reference range Performed By: #### C BC, MG, BMP ####[address] Potassium Normal 3.5-5.1 [facility] Comment on above: Result Comment: Spec imen hemolyzed, redraw requested Performed By: #### C BC, MG, BMP ####[address] Sodium [Moles/Vol] 136 mmol/L Normal 136-145 [facility] Comment on above: Performed By: #### C BC, MG, BMP ####[address] Urea nitrogen [Mass/Vol] 25 mg/dL Normal 7-25 [facility] Comment on above: Performed By: #### C BC, MG, BMP ####[address] Complete Blood Count Auto Di ffon 07-11-2024 Basophils (Bld) [#/Vol] 0.0 10*3/uL Normal 0.0-0.2 [facility] Comment on above: Result Comment: PERF ORMED BY:[address] [place], [place] [id number] MEDICAL DIRECTORRHONDA MCLEAN M.D. Performed By: #### C BC, MG, BMP ####[address] Basophils/100 WBC (Bld) 0.5 % Normal . [facility] Comment on above: Performed By: #### C BC, MG, BMP ####[address] Eosinophils (Bld) [#/Vol] 0.1 10*3/uL Normal 0.0-0.45 [facility] Comment on above: Performed By: #### C BC, MG, BMP ####[address] Eosinophils/100 WBC (Bld) 1.3 % Normal . [facility] Comment on above: Performed By: #### C BC, MG, BMP ####[address] Erythrocyte distribution width (RBC) [Ratio] 15.1 % High 12.0-14.8 [facility] Comment on above: Performed By: #### C BC, MG, BMP ####[address] Hematocrit (Bld) [Volume fraction] 37.7 % Low 38.8-50.0 [facility] Comment on above: Performed By: #### C BC, MG, BMP ####[address] Hemoglobin (Bld) [Mass/Vol] 12.6 g/dL Low 13.0-17.0 [facility] Comment on above: Performed By: #### C BC MG, BMP ####[address] Lymphocytes (Bld) [#/Vol] 1.4 10*3/uL Normal 1.00-4.8 [facility] Comment on above: Performed By: #### C BC MG, BMP ####[address] Lymphocytes/100 WBC (Bld) 19.1 % Normal . [facility] Comment on above: Performed By: #### C VERÓNICA MG, BMP ####[address] MCH (RBC) [Entitic mass] 30.6 pg Normal 27.5-35.2 [facility] Comment on above: Performed By: #### C BC MG, BMP ####[address] MCV (RBC) [Entitic vol] 91.4 fL Normal 83.5-101 [facility] Comment on above: Performed By: #### C VERÓNICA MG, BMP ####[address] Mean Corpuscular HGB Conc 33.5 g/dL Normal 32.5-35.6 [facility] Comment on above: Performed By: #### C BC MG, BMP ####[address] Monocytes (Bld) [#/Vol] 0.7 10*3/uL Normal 0.0-0.8 [facility] Comment on above: Performed By: #### C BC MG, BMP ####[address] Monocytes/100 WBC (Bld) 9.1 % Normal . [facility] Comment on above: Performed By: #### C BC MG, BMP ####[place] [address] Neutrophils (Bld) [#/Vol] 5.2 10*3/uL Normal 1.8-7.7 [facility] Comment on above: Performed By: #### C BC, MG, BMP ####[address] Neutrophils/100 WBC (Bld) 70.0 % Normal . [facility] Comment on above: Performed By: #### C BC, MG, BMP ####[address] NRBC% 0.1 /100{WBC} Normal 0-0.5 [facility] Comment on above: Performed By: #### C BC, MG, BMP ####[address] Platelet mean volume (Bld) [Entitic vol] 8.0 fL Normal 6.6-10.1 [facility] Comment on above: Performed By: #### C BC, MG, BMP ####[address] Platelets (Bld) [#/Vol] 217 10*3/uL Normal 150-450 [facility] Comment on above: Performed By: #### C BC, MG, BMP ####[address] RBC (Bld) [#/Vol] 4.13 10*6/uL Normal 3.90-5.60 [facility] Comment on above: Performed By: #### C BC, MG, BMP ####[address] WBC (Bld) [#/Vol] 7.4 10*3/uL Normal 4.1-10.5 [facility] Comment on above: Performed By: #### C BC, MG, BMP ####[address] Magnesiumon 07-11-2024 Magnesium Normal 1.9-2.7 [facility] Comment on above: Result Comment: Spec imen hemolyzed, redraw requestedPERFORMED BY:[place] [address] [address]AM[address]dalenaRaulELVINPINOPOL[place], [place] [id number] MEDICAL DIRECTORRHONDA MCLEAN M.D. Performed By: #### C BC, MG, BMP ####[place] [id number] [facility] Redraw Magnesiumon 4 Magnesium [Mass/Vol] 1.6 mg/dL Low 1.9-2.7 [facility] Comment on above: Result Comment: PERF ORMED BY:[place] [address] [address] [place], [place] [phone] MEDICAL DIRECTORRHONDA MCLEAN M.D. Performed By: #### R EDRAW MG, REDRAW K ####[address] Redraw Potassiumon 4 Potassium [Moles/Vol] 3.5 mmol/L Normal 3.5-5.1 [facility] Comment on above: Performed By: #### R EDRAW MG, REDRAW K ####[address] Basic Metabolic Panelon 06-22 Anion gap [Moles/Vol] 11.4 mmol/L Normal 6.0-15.0 [facility] e [facility] Comment on above: Performed By: #### M G, CBC, BMP ####[address] Calcium [Mass/Vol] 9.0 mg/dL Normal 8.6-10.3 [facility] Comment on above: Performed By: #### M G, CBC, BMP ####[address] Chloride [Moles/Vol] 106 mmol/L Normal 98-107 [facility] Comment on above: Performed By: #### M G, CBC, BMP ####[place] [id number] [place] CO2 [Moles/Vol] 27.8 mmol/L Normal 21.0-31.0 [facility] Comment on above: Performed By: #### M Hannah, CBC, BMP ####[address] Creatinine [Mass/Vol] 1.29 mg/dL Significan t change down 0.70-1.30 [facility] Comment on above: Performed By: #### M G, CBC, BMP ####[address] Creatinine Clr Calc Pharmacy 62.66 Normal [facility] Comment on above: Performed By: #### M Hannah, CBC, BMP ####[address] Estimated GFR 56.052 mL/Min Normal [facility] Comment on above: Performed By: #### M G, CBC, BMP ####[address] Glucose [Mass/Vol] 110 mg/dL High 70-100 [facility] Comment on above: Result Comment: [facility] Glucose Reference Range is dependent on time and content of last meal. Glucose of more than 200 mg/dL in a nonstressed, ambulatory subject supports the diagnosis of Diabetes Mellitus. ADA recommended reference range Performed By: #### M G, CBC, BMP ####[address] Potassium [Moles/Vol] 4.2 mmol/L Normal 3.5-5.1 [facility] Comment on above: Performed By: #### M G, CBC, BMP ####[place] [id number] [facility] Sodium [Moles/Vol] 141 mmol/L Normal 136-145 [facility] Comment on above: Performed By: #### M G, CBC, BMP ####[address] Urea nitrogen [Mass/Vol] 29 mg/dL High 7-25 [facility] Comment on above: Performed By: #### M G, CBC, BMP ####[place] [id number] [facility] Complete Blood Count Auto Di ffon 07-10-2024 Basophils (Bld) [#/Vol] 0.0 10*3/uL Normal 0.0-0.2 [facility] Comment on above: Result Comment: PERF ORMED BY:[address] [place], [place] [phone] MEDICAL DIRECTORRHONDA MCLEAN M.D. Performed By: #### M G, CBC, BMP ####[address] Basophils/100 WBC (Bld) 0.6 % Normal . [facility] Comment on above: Performed By: #### M G, CBC, BMP ####[address] Eosinophils (Bld) [#/Vol] 0.0 10*3/uL Normal 0.0-0.45 [facility] Comment on above: Performed By: #### M G, CBC, BMP ####[address] Eosinophils/100 WBC (Bld) 0.4 % Normal . [facility] Comment on above: Performed By: #### M G, CBC, BMP ####[address] Erythrocyte distribution width (RBC) [Ratio] 14.7 % Normal 12.0-14.8 [facility] Comment on above: Performed By: #### M G, CBC, BMP ####[address] Hematocrit (Bld) [Volume fraction] 37.6 % Low 38.8-50.0 [facility] Comment on above: Performed By: #### M G, CBC, BMP ####[address] Hemoglobin (Bld) [Mass/Vol] 12.7 g/dL Low 13.0-17.0 [facility] Comment on above: Performed By: #### M G, CBC, BMP ####[address] Lymphocytes (Bld) [#/Vol] 1.1 10*3/uL Normal 1.00-4.8 [facility] Comment on above: Performed By: #### M G, CBC, BMP ####[address] Lymphocytes/100 WBC (Bld) 13.3 % Normal . [facility] Comment on above: Performed By: #### M G, CBC, BMP ####[address] MCH (RBC) [Entitic mass] 31.1 pg Normal 27.5-35.2 [facility] Comment on above: Performed By: #### M G, CBC, BMP ####[address] MCV (RBC) [Entitic vol] 91.9 fL Normal 83.5-101 [facility] Comment on above: Performed By: #### M G, CBC, BMP ####[address] Mean Corpuscular HGB Conc 33.9 g/dL Normal 32.5-35.6 [facility] Comment on above: Performed By: #### M G, CBC, BMP ####[address] Monocytes (Bld) [#/Vol] 0.8 10*3/uL Normal 0.0-0.8 [facility] Comment on above: Performed By: #### M G, CBC, BMP ####[address] Monocytes/100 WBC (Bld) 10.5 % Normal . [facility] Comment on above: Performed By: #### M G, CBC, BMP ####[address] Neutrophils (Bld) [#/Vol] 6.0 10*3/uL Normal 1.8-7.7 [facility] Comment on above: Performed By: #### M Hannah, CBC, BMP ####[address] Neutrophils/100 WBC (Bld) 75.2 % Normal . [facility] Comment on above: Performed By: #### M G, CBC, BMP ####[address] NRBC% 0.1 /100{WBC} Normal 0-0.5 [facility] Comment on above: Performed By: #### Marcial Young, CBC, BMP ####[address] Platelet mean volume (Bld) [Entitic vol] 8.2 fL Normal 6.6-10.1 [facility] Comment on above: Performed By: #### Marcial Young, CBC, BMP ####[address] Platelets (Bld) [#/Vol] 210 10*3/uL Normal 150-450 [facility] Comment on above: Performed By: #### M Hannah, CBC, BMP ####[address] RBC (Bld) [#/Vol] 4.09 10*6/uL Normal 3.90-5.60 [facility] Comment on above: Performed By: #### Marcial G, CBC, BMP ####[address] WBC (Bld) [#/Vol] 8.0 10*3/uL Normal 4.1-10.5 [facility] Comment on above: Performed By: #### Marcial G, CBC, BMP ####[address] Magnesiumon 07-10-2024 Magnesium [Mass/Vol] 1.9 mg/dL Normal 1.9-2.7 [facility] Comment on above: Result Comment: PERF ORMED BY:[facility] [place], [place] [phone] MEDICAL DIRECTORRHONDA MCLEAN M.D. Performed By: #### M G, CBC, BMP ####[facility] [address] [place] [address] [facility] Alanine aminotransferase [En zymatic activity/volume] in Serum or PlasmaOrdered By: Juli Thomas on 07-09-2024 ALT [Catalytic activity/Vol] Alanine aminotransferase [Enzymatic activity/volume] in Serum or Plasma 7-52 [facility] Albumin [Mass/volume] in Ser um or Plasma by Bromocresol green (BCG) dye binding methoOrdered By: Juli Thomas on 07-09-2024 Albumin BCG dye [Mass/Vol] Albumin [Mass/volume] in Serum or Plasma by Bromocresol green (BCG) dye binding metho 3.5-5.7 [facility] Alkaline phosphatase [Enzyma tic activity/volume] in Serum or PlasmaOrdered By: Juli Thomas on 07-09-2024 ALP [Catalytic activity/Vol] Alkaline phosphatase [Enzymatic activity/volume] in Serum or Plasma 34-104 [facility] Appearance of UrineOrdered B y: Juli Thomas on 07-09-2024 Appearance (U) Urine appearance Clear [facility] Aspartate aminotransferase [ Enzymatic activity/volume] in Serum or PlasmaOrdered By: Juli Thomas on 07-09-2024 AST [Catalytic activity/Vol] Aspartate aminotransferase [Enzymatic activity/volume] in Serum or Plasma 13-39 [facility] Bacteria [Presence] in Urine by AutomatedOrdered By: Juli Thomas on 07-09-2024 Bacteria Auto Ql (U) Bacteria [Presence] in Urine by Automated None Seen [facility] Basophils Auto (Bld) [#/Vol] Ordered By: Juli Thomas on 07-09-2024 Basophils (Bld) [#/Vol] Automated basophil count 0.0-0.2 [facility] Basophils/100 WBC Auto (Bld) Ordered By: Juli Thomas on 07-09-2024 Basophils/100 WBC (Bld) Automated basophil % . [facility] Bilirubin Test strip Ql (U)O rdered By: Juli Thomas on 07-09-2024 Bilirubin Ql (U) Bilirubin.total [Pre sence] in Urine by Test strip Negative [facility] Bilirubin.total [Mass/volume ] in Serum or PlasmaOrdered By: Juli Thomas on 07-09-2024 Bilirubin [Mass/Vol] Bilirubin.total [Mass/volume] in Serum or Plasma 0.3-1.0 [facility] C reactive protein [Mass/vol ume] in Serum or PlasmaOrdered By: Juli Thomas on 07-09-2024 CRP [Mass/Vol] C reactive protein [Mass/volume] in Serum or Plasma High 0.0-0.5 [facility] C-Reactive Proteinon 024 C-Reactive Protein 3.1 mg/dL High 0.0-0.5 [facility] Comment on above: Result Comment: PERF ORMED BY:[address] [place], [place] [phone] MEDICAL DIRECTORRHONDA MCLEAN M.D. Performed By: #### C RP, HS TROP, CBC, MG, PT, PTT, CMP ####[facility] [place] [id number] [facility] [address] angio neckon 07-09-2024 CT angio neck Normal [facility] CT head stroke alert wo cono n 07-09-2024 CT head stroke alert wo con Normal [facility] Calcium [Mass/volume] in Ser um or PlasmaOrdered By: Juli Thomas on 07-09-2024 Calcium [Mass/Vol] Calcium [Mass/volume ] in Serum or Plasma 8.6-10.3 [facility] Carbon dioxide, total [Moles /volume] in Serum or PlasmaOrdered By: Juli Thomas on 07-09-2024 CO2 [Moles/Vol] Carbon dioxide, tota l [Moles/volume] in Serum or Plasma 21.0-31.0 [facility] Chloride [Moles/volume] in S [place] or PlasmaOrdered By: Juli Thomas on 07-09-2024 Chloride [Moles/Vol] Chloride [Moles/vol ume] in Serum or Plasma 98-107 [facility] Color Auto (U)Ordered By: Goyo Thomas on 07-09-2024 Color (U) Color of Urine by Auto Yellow Fi [facility] Complete Blood Count Auto Di ffon 07-09-2024 Basophils (Bld) [#/Vol] 0.0 10*3/uL Normal 0.0-0.2 [facility] Comment on above: Result Comment: PERF ORMED BY:[address] [place], [place] [phone] MEDICAL DIRECTORRHONDA MCLEAN M.D. Performed By: #### C RP, HS TROP, CBC, MG, PT, PTT, CMP ####[address] Basophils/100 WBC (Bld) 0.4 % Normal . [facility] Comment on above: Performed By: #### C RP, HS TROP, CBC, MG, PT, PTT, CMP ####[address] Eosinophils (Bld) [#/Vol] 0.1 10*3/uL Normal 0.0-0.45 [facility] Comment on above: Performed By: #### C RP, HS TROP, CBC, MG, PT, PTT, CMP ####[address] Eosinophils/100 WBC (Bld) 0.6 % Normal . [facility] Comment on above: Performed By: #### C RP, HS TROP, CBC, MG, PT, PTT, CMP ####[address] Erythrocyte distribution width (RBC) [Ratio] 15.0 % High 12.0-14.8 [facility] Comment on above: Performed By: #### C RP, HS TROP, CBC, MG, PT, PTT, CMP ####[address] Hematocrit (Bld) [Volume fraction] 39.5 % Normal 38.8-50.0 [facility] Comment on above: Performed By: #### C RP, HS TROP, CBC, MG, PT, PTT, CMP ####[address] Hemoglobin (Bld) [Mass/Vol] 13.1 g/dL Normal 13.0-17.0 [facility] Comment on above: Performed By: #### C RP, HS TROP, CBC, MG, PT, PTT, CMP ####[address] Lymphocytes (Bld) [#/Vol] 0.7 10*3/uL Low 1.00-4.8 [facility] Comment on above: Performed By: #### C RP, HS TROP, CBC, MG, PT, PTT, CMP ####[address] Lymphocytes/100 WBC (Bld) 6.3 % Normal . [facility] Comment on above: Performed By: #### C RP, HS TROP, CBC, MG, PT, PTT, CMP ####[address] MCH (RBC) [Entitic mass] 30.8 pg Normal 27.5-35.2 [facility] Comment on above: Performed By: #### C RP, HS TROP, CBC, MG, PT, PTT, CMP ####[address] MCV (RBC) [Entitic vol] 92.6 fL Normal 83.5-101 [facility] Comment on above: Performed By: #### C RP, HS TROP, CBC, MG, PT, PTT, CMP ####[address] Mean Corpuscular HGB Conc 33.2 g/dL Normal 32.5-35.6 [facility] Comment on above: Performed By: #### C RP, HS TROP, CBC, MG, PT, PTT, CMP ####[address] Monocytes (Bld) [#/Vol] 1.3 10*3/uL High 0.0-0.8 [facility] Comment on above: Performed By: #### C RP, HS TROP, CBC, MG, PT, PTT, CMP ####[address] Monocytes/100 WBC (Bld) 18.70 % Normal 0.00-20.00 [facility] Comment on above: Performed By: #### C RP, HS TROP, CBC, MG, PT, PTT, CMP ####[address] Monocytes/100 WBC (Bld) 12.2 % Normal . [facility] Comment on above: Performed By: #### C RP, HS TROP, CBC, MG, PT, PTT, CMP ####[address] Neutrophils (Bld) [#/Vol] 8.4 10*3/uL High 1.8-7.7 [facility] Comment on above: Performed By: #### C RP, HS TROP, CBC, MG, PT, PTT, CMP ####[address] Neutrophils/100 WBC (Bld) 80.5 % Normal . [facility] Comment on above: Performed By: #### C RP, HS TROP, CBC, MG, PT, PTT, CMP ####[address] NRBC% 0.0 /100{WBC} Normal 0-0.5 [facility] Comment on above: Performed By: #### C RP, HS TROP, CBC, MG, PT, PTT, CMP ####[address] Platelet mean volume (Bld) [Entitic vol] 7.9 fL Normal 6.6-10.1 [facility] Comment on above: Performed By: #### C RP, HS TROP, CBC, MG, PT, PTT, CMP ####[place] [id number] Platelets (Bld) [#/Vol] 229 10*3/uL Normal 150-450 [facility] Comment on above: Performed By: #### C RP, HS TROP, CBC, MG, PT, PTT, CMP ####[address] RBC (Bld) [#/Vol] 4.27 10*6/uL Normal 3.90-5.60 [facility] Comment on above: Performed By: #### C RP, HS TROP, CBC, MG, PT, PTT, CMP ####[address] WBC (Bld) [#/Vol] 10.4 10*3/uL Normal 4.1-10.5 [facility] Comment on above: Performed By: #### C RP, HS TROP, CBC, MG, PT, PTT, CMP ####[address] Comprehensive Metabolic Pane rc 07-09-2024 Albumin [Mass/Vol] 3.5 g/dL Normal 3.5-5.7 [facility] Comment on above: Performed By: #### C RP, HS TROP, CBC, MG, PT, PTT, CMP ####[address] Albumin/Globulin [Mass ratio] 1.3 {ratio} Normal [facility] Comment on above: Performed By: #### C RP, HS TROP, CBC, MG, PT, PTT, CMP ####[address] ALP [Catalytic activity/Vol] 53 U/L Normal 34-104 [facility] Comment on above: Performed By: #### C RP, HS TROP, CBC, MG, PT, PTT, CMP ####[address] ALT [Catalytic activity/Vol] 17 U/L Normal 7-52 [facility] Comment on above: Performed By: #### C RP, HS TROP, CBC, MG, PT, PTT, CMP ####[address] Anion gap [Moles/Vol] 11.2 mmol/L Normal 6.0-15.0 [facility] Comment on above: Performed By: #### C RP, HS TROP, CBC, MG, PT, PTT, CMP ####[address] AST [Catalytic activity/Vol] 18 U/L Normal 13-39 [facility] Comment on above: Performed By: #### C RP, HS TROP, CBC, MG, PT, PTT, CMP ####[address] Bilirubin [Mass/Vol] 0.7 mg/dL Normal 0.3-1.0 [facility] Comment on above: Performed By: #### C RP, HS TROP, CBC, MG, PT, PTT, CMP ####[address] Calcium [Mass/Vol] 9.5 mg/dL Normal 8.6-10.3 [facility] Comment on above: Performed By: #### C RP, HS TROP, CBC, MG, PT, PTT, CMP ####[address] Chloride [Moles/Vol] 104 mmol/L Normal 98-107 [facility] Comment on above: Performed By: #### C RP, HS TROP, CBC, MG, PT, PTT, CMP ####[address] CO2 [Moles/Vol] 28.8 mmol/L Normal 21.0-31.0 [facility] Comment on above: Performed By: #### C RP, HS TROP, CBC, MG, PT, PTT, CMP ####[address] Creatinine [Mass/Vol] 1.86 mg/dL High 0.70-1.30 [facility] Comment on above: Performed By: #### C RP, HS TROP, CBC, MG, PT, PTT, CMP ####[address] Estimated GFR 36.131 mL/Min Normal [facility] Comment on above: Performed By: #### C RP, HS TROP, CBC, MG, PT, PTT, CMP ####[address] Globulin (S) [Mass/Vol] 2.7 g/dL Normal [facility] Comment on above: Performed By: #### C RP, HS TROP, CBC, MG, PT, PTT, CMP ####[address] Glucose [Mass/Vol] 135 mg/dL High 70-100 [facility] Comment on above: Result Comment: [facility] Glucose Reference Range is dependent on time and content of last meal. Glucose of more than 200 mg/dL in a nonstressed, ambulatory subject supports the diagnosis of Diabetes Mellitus. ADA recommended reference range Performed By: #### C RP, HS TROP, CBC, MG, PT, PTT, CMP ####[address] Potassium [Moles/Vol] 4.0 mmol/L Normal 3.5-5.1 [facility] Comment on above: Performed By: #### C RP, HS TROP, CBC, MG, PT, PTT, CMP ####[address] Protein [Mass/Vol] 6.2 g/dL Low 6.4-8.9 [facility] Comment on above: Performed By: #### C RP, HS TROP, CBC, MG, PT, PTT, CMP ####[address] Sodium [Moles/Vol] 140 mmol/L Normal 136-145 [facility] Comment on above: Performed By: #### C RP, HS TROP, CBC, MG, PT, PTT, CMP ####[address] [place] [address] [facility] Urea nitrogen [Mass/Vol] 37 mg/dL High 7-25 [facility] Comment on above: Performed By: #### C RP, HS TROP, CBC, MG, PT, PTT, CMP ####[address] [address] [facility] Creatinine [Mass/volume] in Serum or PlasmaOrdered By: Juli Thomas on 07-09-2024 Creatinine [Mass/Vol] Creatinine [Mass/v olume] in Serum or Plasma High 0.70-1.30 [facility] Dipstick and Microscopicon 1 09-08-2023 Appearance (U) Clear Normal Clear [facility] Comment on above: Order Comment: Name Collection Type:: Clean-Voided Midstream Performed By: #### A DDONUAPLUS ####[place] [id number] [facility] Bacteria,Urine None Seen Normal None Seen [facility] Comment on above: Order Comment: Name Collection Type:: Clean-Voided Midstream Performed By: #### A DDONUAPLUS ####[address] [address] [facility] Bilirubin,Urine Negative Normal Negative [facility] Comment on above: Order Comment: Name Collection Type:: Clean-Voided Midstream Performed By: #### A DDONUAPLUS ####[place] [id number] [facility] Color (U) Light-Yellow Normal Yellow [facility] Comment on above: Order Comment: Name Collection Type:: Clean-Voided Midstream Performed By: #### A DDONUAPLUS ####[address] [address] [facility] Glucose Ql (U) Normal Normal Normal [facility] Comment on above: Order Comment: Name Collection Type:: Clean-Voided Midstream Performed By: #### A DDONUAPLUS ####[address] [address] [facility] Hyaline Casts,Urine 0 [LPF] Normal 0-8 [facility] Comment on above: Order Comment: Name Collection Type:: Clean-Voided Midstream Result Comment: PERF ORMED BY:[place] [address] [place], [place] [phone] MEDICAL DIRECTORRHONDA MCLEAN M.D. Performed By: #### A DDONUAPLUS ####[address] [address] [facility] Ketones Ql (U) Negative Normal Negative [facility] Comment on above: Order Comment: Name Collection Type:: Clean-Voided Midstream Performed By: #### A DDONUAPLUS ####[address] [address] [facility] Leukocyte esterase Test strip Ql (U) Negative Normal Negative [facility] Comment on above: Order Comment: Name Collection Type:: Clean-Voided Midstream Performed By: #### A DDONUAPLUS ####[address] [address] [facility] Nitrite,Urine Negative Normal Negative [facility] Comment on above: Order Comment: Name Collection Type:: Clean-Voided Midstream Performed By: #### A DDONUAPLUS ####[address] [address] [facility] Occult Blood,Urine Negative Normal Negative [facility] Comment on above: Order Comment: Name Collection Type:: Clean-Voided Midstream Result Comment: PERF ORMED BY:[address] [place], [place] [phone] MEDICAL DIRECTORRHONDA MCLEAN M.D. Performed By: #### A DDONUAPLUS ####[address] [address] [place] pH (U) 6.5 [pH] Normal 5.0-9.0 [facility] Comment on above: Order Comment: Name Collection Type:: Clean-Voided Midstream Performed By: #### A DDONUAPLUS ####[address] [address] [facility] Protein,Urine Trace High Negative [facility] Comment on above: Order Comment: Name Collection Type:: Clean-Voided Midstream Performed By: #### A DDONUAPLUS ####[address] RBC,Urine 5 [HPF] High 0-4 [facility] Comment on above: Order Comment: Name Collection Type:: Clean-Voided Midstream Performed By: #### A DDONUAPLUS ####[address] Specificy [place],Urine 1.018 Normal 1.001-1.03 0 [facility] Comment on above: Order Comment: Name Collection Type:: Clean-Voided Midstream Performed By: #### A DDONUAPLUS ####[address] Urobilinogen,Urine Normal Normal Normal [facility] Comment on above: Order Comment: Name Collection Type:: Clean-Voided Midstream Performed By: #### A DDONUAPLUS ####[address] WBC,Urine 1 [HPF] Normal 0-4 [facility] Comment on above: Order Comment: Name Collection Type:: Clean-Voided Midstream Performed By: #### A DDONUAPLUS ####[address] ECG 12 lead ECGon 07-09-2024 ECG 12 lead ECG Normal [facility] Eosinophils Auto (Bld) [#/Vo l]Ordered By: Juli Thomas on 07-09-2024 Eosinophils (Bld) [#/Vol] Automated eosinophil count 0.0-0.45 [facility] Eosinophils/100 WBC Auto (Bl d)Ordered By: Juli Thomas on 07-09-2024 Eosinophils/100 WBC (Bld) Automated eosinophil % . [facility] Epithelial cells.squamous [# /area] in Urine sediment by Automated countOrdered By: Juli Thomas on 07-09-2024 Epithelial cells.squamous Auto (Urine sed) [#/Area] Epithelial cells.squamous [#/area] in Urine sediment by Automated count [facility] Erythrocyte Sedimentation Ra kimberlee 07-09-2024 ESR (Bld) [Velocity] 53 mm/h High 0-19 [facility] Comment on above: Result Comment: PERF ORMED BY:[facility] [place], [place] [phone] MEDICAL DIRECTORRHONDA MCLEAN M.D. Performed By: #### E ####[facility] [place] [address] [facility] Erythrocyte distribution wid th Auto (RBC) [Ratio]Ordered By: Juli Thomas on 07-09-2024 Erythrocyte distribution width (RBC) [Ratio] Erythrocyte distribution width [Ratio] by Automated count High 12.0-14.8 [facility] Erythrocyte sedimentation ra te by Photometric methodOrdered By: Juli Thomas on 07-09-2024 ESR Photometric method (Bld) [Velocity] Erythrocyte sedimentation rate by Photometric method High 0-19 [facility] Erythrocytes [#/area] in Uri ne sediment by Automated countOrdered By: Juli Thomas on 07-09-2024 RBC Auto (Urine sed) [#/Area] Erythrocytes [#/area] in Urine sediment by Automated count High 0-4 [facility] Globulin Calc (S) [Mass/Vol] Ordered By: Juli Thomas on 07-09-2024 Globulin (S) [Mass/Vol] Serum globulin measurement by calculation (mass/volume) [facility] Glucose Glucometer (BldC) [M ass/Vol]Ordered By: Juli Thomas on 07-09-2024 Glucose [Mass/Vol] Capillary blood gluc ose measurement by glucometer (mass/volume) [facility] Comment on above: Random Glucose Refer ence Range is dependent on time and content of last meal. Glucose of more than 200 mg/dL in a nonstressed, ambulatory subject supports the diagnosis of Diabetes Mellitus. Glucose Poct Glucometerson 1 09-08-2023 Glucose [Mass/Vol] 130 mg/dL Normal [facility] Comment on above: Result Comment: [place] om Glucose Reference Range is dependent on time and content of last meal. Glucose of more than 200 mg/dL in a nonstressed, ambulatory subject supports the diagnosis of Diabetes Mellitus.PERFORMED BY:[facility] [place], [place] [phone] MEDICAL DIRECTORRHONDA MCLEAN M.D. Performed By: #### G ANASTASIIA ####Point of Care testing, Glucose [Mass/volume] in Ser um or PlasmaOrdered By: Juli Thomas on 07-09-2024 Glucose [Mass/Vol] Glucose [Mass/volume ] in Serum or Plasma High 70-100 [facility] Comment on above: ADA recommended refe [...] [Mass/volume] in Urine by Test strip Normal [facility] Hematocrit Auto (Bld) [Volum e fraction]Ordered By: Juli Thomas on 07-09-2024 Hematocrit (Bld) [Volume fraction] Hematocrit [Volume Fraction] of Blood by Automated count 38.8-50.0 [facility] Hemoglobin Test strip Ql (U) Ordered By: Juli Thomas on 07-09-2024 Hemoglobin Ql (U) Hemoglobin [Presence ] in Urine by Test strip Negative [facility] Hemoglobin [Mass/volume] in BloodOrdered By: Juli Thomas 07-09-2024 Hemoglobin (Bld) [Mass/Vol] Hemoglobin [Mass/volume] in Blood 13.0-17.0 [facility] Hyaline casts [#/area] in Ur ine sediment by Automated countOrdered By: Juli Thomas 07-09-2024 Hyaline casts Auto (Urine sed) [#/Area] Hyaline casts [#/area] in Urine sediment by Automated count 0-8 [facility] INR in Platelet poor plasma by Coagulation assayOrdered By: Juli Thomas on 07-09-2024 INR Coag (PPP) [Relative time] INR in Platelet poor plasma by Coagulation assay [facility] Comment on above: INR Therapeutic Rang [...] i n Urine by Test strip Negative [facility] Leukocyte esterase [Presence ] in Urine by Test stripOrdered By: Juli Thomas on 07-09-2024 Leukocyte esterase Test strip Ql (U) Leukocyte esterase [Presence] in Urine by Test strip Negative [facility] Leukocytes [#/area] in Urine sediment by Automated countOrdered By: Juli Thomas on 07-09-2024 WBC Auto (Urine sed) [#/Area] Leukocytes [#/area] in Urine sediment by Automated count 0-4 [facility] Leukocytes [#/volume] correc blessing for nucleated erythrocytes in Blood by Automated counOrdered By: Juli Thomas on 07-09-2024 WBC corrected for nucl RBC Auto (Bld) [#/Vol] Leukocytes [#/volume] corrected for nucleated erythrocytes in Blood by Automated coun 4.1-10.5 [facility] Lymphocytes Auto (Bld) [#/Vo l]Ordered By: Juli Thomas on 07-09-2024 Lymphocytes (Bld) [#/Vol] Lymphocytes [#/volume] in Blood by Automated count Low 1.00-4.8 [facility] Lymphocytes/100 WBC Auto (Bl d)Ordered By: Juli Thomas on 07-09-2024 Lymphocytes/100 WBC (Bld) Lymphocytes/100 leukocytes in Blood by Automated count . [facility] MCH Auto (RBC) [Entitic mass ]Ordered By: Juli Thomas on 07-09-2024 MCH (RBC) [Entitic mass] MCH [Entitic mass] by Automated count 27.5-35.2 [facility] MCHC Auto (RBC) [Mass/Vol]Or dered By: Juli Thomas on 07-09-2024 MCHC (RBC) [Mass/Vol] MCHC [Mass/volume] by Automated count 32.5-35.6 [facility] MCV Auto (RBC) [Entitic vol] Ordered By: Juli Thomas on 07-09-2024 MCV (RBC) [Entitic vol] MCV [Entitic volume] by Automated count 83.5-101 [facility] Magnesiumon 07-09-2024 Magnesium [Mass/Vol] 1.9 mg/dL Normal 1.9-2.7 [facility] Comment on above: Result Comment: PERF ORMED BY:[facility] [place], [place] [phone] MEDICAL DIRECTORRHONDA MCLEAN M.D. Performed By: #### C RP, HS TROP, CBC, MG, PT, PTT, CMP ####[facility] [place] [address] [facility] Magnesium [Mass/volume] in S [place] or PlasmaOrdered By: Juli Thomas on 07-09-2024 Magnesium [Mass/Vol] Magnesium [Mass/vol ume] in Serum or Plasma 1.9-2.7 [facility] Monocyte distribution width [Entitic volume] in Blood by AutomatedOrdered By: Juli Thomas on 07-09-2024 Monocyte distribution width Auto (Bld) [Entitic vol] Monocyte distribution width [Entitic volume] in Blood by Automated 0.00-20.00 [facility] Monocytes Auto (Bld) [#/Vol] Ordered By: Juli Thomas on 07-09-2024 Monocytes (Bld) [#/Vol] Automated blood monocyte count High 0.0-0.8 [facility] Monocytes/100 WBC Auto (Bld) Ordered By: Juli Thomas on 07-09-2024 Monocytes/100 WBC (Bld) Automated monocyte % . [facility] Neutrophils Auto (Bld) [#/Vo l]Ordered By: Juli Thomas on 07-09-2024 Neutrophils (Bld) [#/Vol] Neutrophils [#/volume] in Blood by Automated count High 1.8-7.7 [facility] Neutrophils/100 WBC Auto (Bl d)Ordered By: Juli Thomas on 07-09-2024 Neutrophils/100 WBC (Bld) Automated neutrophil % . [facility] Nitrite Test strip Ql (U)Ord ered By: Juli Thomas on 07-09-2024 Nitrite Ql (U) Nitrite [Presence] i n Urine by Test strip Negative [facility] No Panel InformationOrdered By: Juli Thomas on 07-09-2024 Estimated GFR (CKD-EPI) 36.131 mL/Min [facility] Creatinine Clearance (Chem N/A [facility] Nucleated erythrocytes [Pres ence] in Blood by Automated countOrdered By: Juli Thomas on 07-09-2024 Nucleated RBC Auto Ql (Bld) Nucleated erythrocytes [Presence] in Blood by Automated count 0-0.5 [facility] Partial Thromboplastin Timeo n 07-09-2024 aPTT Coag (Bld) [Time] 30.8 s Normal 25.1-36.5 [facility] Comment on above: Result Comment: A he matocrit value greater than 55% may lead to inaccurate results in coagulation testing. Patients having hematocrit values >55% require a special collection tube for coagulation studies. Please contact the laboratory at [phone] for redraw instructions.PERFORMED BY:[facility] [place], [place] [phone] MEDICAL DIRECTORRHONDA MCLEAN M.D. Performed By: #### C RP, HS TROP, CBC, MG, PT, PTT, CMP ####[facility] [id number] [place] [address] [facility] Platelet mean volume Auto (B ld) [Entitic vol]Ordered By: Juli Thomas on 07-09-2024 Platelet mean volume (Bld) [Entitic vol] Platelet mean volume [Entitic volume] in Blood by Automated count 6.6-10.1 [facility] Platelets Auto (Bld) [#/Vol] Ordered By: Juli Thomas on 07-09-2024 Platelets (Bld) [#/Vol] Platelets [#/volume] in Blood by Automated count 150-450 [facility] Potassium [Moles/volume] in Serum or PlasmaOrdered By: Juli Thomas on 07-09-2024 Potassium [Moles/Vol] Potassium [Moles/v olume] in Serum or Plasma 3.5-5.1 [facility] Protein Test strip (U) [Mass /Vol]Ordered By: Juli Thomas on 07-09-2024 Protein (U) [Mass/Vol] Protein [Mass/vol ume] in Urine by Test strip High Negative [facility] Protein [Mass/volume] in Ser um or PlasmaOrdered By: Juli Thomas on 07-09-2024 Protein [Mass/Vol] Protein [Mass/volume ] in Serum or Plasma Low 6.4-8.9 [facility] Prothrombin Time INRon 07-09 INR Coag (PPP) [Relative time] 1.6 {INR} Normal [facility] Comment on above: Result Comment: [...] valves: 3 - 4.5 Performed By: #### C RP, HS TROP, CBC, MG, PT, PTT, CMP ####[facility] PT Coag (PPP) [Time] 17.8 s High 9.0-12.9 [facility] Comment on above: Result Comment: A he matocrit value greater than 55% may lead to inaccurate results in coagulation testing. Patients having hematocrit values >55% require a special collection tube for coagulation studies. Please contact the laboratory at [phone] for redraw instructions. Performed By: #### C RP, HS TROP, CBC, MG, PT, PTT, CMP ####[facility] [place] [id number] [facility] Prothrombin time (PT)Ordered By: Juli Thomas on 07-09-2024 PT Coag (PPP) [Time] Prothrombin time (PT) High 9.0- 12.9 [facility] Comment on above: A hematocrit value g reater than 55% may lead to inaccurate results in coagulation testing. Patients having hematocrit values >55% require a special collection tube for coagulation studies. Please contact the laboratory at [phone] for redraw instructions. RBC Auto (Bld) [#/Vol]Ordere d By: Juli William on 07-09-2024 RBC (Bld) [#/Vol] Erythrocytes [#/volu me] in Blood by Automated count 3.90-5.60 [facility] Serum or plasma albumin/glob ulin mass ratioOrdered By: Juli [facility] on 07-09-2024 Albumin/Globulin [Mass ratio] Serum or plasma albumin/globulin mass ratio [facility] Serum or plasma anion gap de terminationOrdered By: Juli [facility] on 07-09-2024 Anion gap [Moles/Vol] Serum or plasma an ion gap determination 6.0-15.0 [facility] Sodium [Moles/volume] in Ser um or PlasmaOrdered By: Juli [facility] on 07-09-2024 Sodium [Moles/Vol] Sodium [Moles/volume ] in Serum or Plasma 136-145 [facility] Specific gravity Test strip (U) [Rel density]Ordered By: Juli [facility] on 07-09-2024 Specific gravity (U) [Rel density] Specific gravity of Urine by Test strip 1.001-1.03 0 [facility] Troponin I High Sensitivityo n 07-09-2024 Troponin I High Sensitivity 10.7 pg/mL Normal 0.0-20.0 [facility] Comment on above: Result Comment: PERF ORMED BY:[facility] [place], [place] [phone] MEDICAL DIRECTORRHONDA MCLEAN M.D. Performed By: #### C RP, HS TROP, CBC, MG, PT, PTT, CMP ####[facility] [place] [address] [facility] Troponin I.cardiac [Mass/vol ume] in Serum or Plasma by Detection limit <= 0.01 ng/Ordered By: Juli Thomas on 07-09-2024 Troponin I.cardiac DL <= 0.01 ng/mL [Mass/Vol] Troponin I.cardiac [Mass/volume] in Serum or Plasma by Detection limit <= 0.01 ng/ 0.0-20.0 [facility] Urea nitrogen [Mass/volume] in Serum or PlasmaOrdered By: Juli Thomas on 07-09-2024 Urea nitrogen [Mass/Vol] Urea nitrogen [Mass/volume] in Serum or Plasma High 7-25 [facility] Urobilinogen Test strip (U) [Mass/Vol]Ordered By: Juli Thomas on 07-09-2024 Urobilinogen (U) [Mass/Vol] Urobilinogen [Mass/volume] in Urine by Test strip Normal [facility] WBC Auto (Bld) [#/Vol]Ordere d By: Juli Thomas on 07-09-2024 WBC (Bld) [#/Vol] Leukocytes [#/volume ] in Blood by Automated count 4.1-10.5 [facility] X-ray reportOrdered By: Latasha Moe on 07-09-2024 Study report [facility] [place] [place] [address] XRay Report Signed Patient: Taurus Garcia MR#: [id number] : 1945 Acct:[id number] Age/Sex: 78 / M ADM Date: 4 Loc: ER Room: Type: [facility] ER Attending Dr: Copies to: Juli Thomas [...] Aide Moe M.D.07/09/2024 4:34 PM Dictation Location: [place] [address] Transcribed By: [facility] 07/09/24 1634 Dictated By: Aide Moe MD 07/09/24 1632 Signed By: 07/09/24 1634 [facility] Work Phone: XR chest 1V portableon 07-09 XR chest 1V portable Normal [facility] aPTT in Platelet poor plasma by Coagulation assayOrdered By: Juli Thomas on 07-09-2024 aPTT Coag (PPP) [Time] Activated partial thromboplastin time (aPTT) in platelet poor plasma by coagulation a 25.1-36.5 [facility] Comment on above: A hematocrit value g reater than 55% may lead to inaccurate results in coagulation testing. Patients having hematocrit values >55% require a special collection tube for coagulation studies. Please contact the laboratory at [phone] for redraw instructions. pH Test strip (U)Ordered By: Juli Thomas on 07-09-2024 pH (U) pH of Urine by Test strip 5.0-9.0 [facility] Basic Metabolic Panelon 06-21 Anion gap [Moles/Vol] 12.0 mmol/L Normal 6.0-15.0 [facility] Comment on above: Performed By: #### B MP ####[facility] [place] [id number] [facility] Calcium [Mass/Vol] 8.6 mg/dL Normal 8.6-10.3 [facility] Comment on above: Performed By: #### B MP ####[facility] [place] [id number] [facility] Chloride [Moles/Vol] 106 mmol/L Normal 98-107 [facility] Comment on above: Performed By: #### B MP ####[place] [id number] [facility] CO2 [Moles/Vol] 28.2 mmol/L Normal 21.0-31.0 [facility] Comment on above: Performed By: #### B MP ####[place] [id number] [facility] Creatinine [Mass/Vol] 1.07 mg/dL Normal 0.70-1.30 [facility] Comment on above: Performed By: #### B MP ####[place] [id number] [facility] Creatinine Clr Calc Pharmacy 75.58 Normal [facility] Comment on above: Result Comment: PERF ORMED BY:[address] [place], [place] [phone] MEDICAL DIRECTORGINA CARDONA M.D. Performed By: #### B MP ####[place] [id number] [facility] GFR/1.73 sq M.predicted MDRD (S/P/Bld) [Vol rate/Area] mL/min/{1.73_m2} Normal [facility] Comment on above: Performed By: #### B MP ####[place] [id number] [facility] Glucose [Mass/Vol] 96 mg/dL Normal 70-100 [facility] Comment on above: Result Comment: [place] Glucose Reference Range is dependent on time and content of last meal. Glucose of more than 200 mg/dL in a nonstressed, ambulatory subject supports the diagnosis of Diabetes Mellitus. ADA recommended reference range Performed By: #### B MP ####[place] [id number] [facility] Potassium [Moles/Vol] 3.2 mmol/L Low 3.5-5.1 [facility] Comment on above: Performed By: #### B MP ####[place] [id number] [facility] Sodium [Moles/Vol] 143 mmol/L Normal 136-145 [facility] Comment on above: Performed By: #### B MP ####[facility] [id number] [place] [id number] [facility] Urea nitrogen [Mass/Vol] 21 mg/dL Normal 7-25 [facility] Comment on above: Performed By: #### B MP ####[facility] [id number] [place] [id number] [facility] Calcium [Mass/volume] in Ser um or PlasmaOrdered By: Silvestre Grover on 07-03-2024 Calcium [Mass/Vol] Calcium [Mass/volume ] in Serum or Plasma 8.6-10.3 [facility] Carbon dioxide, total [Moles /volume] in Serum or PlasmaOrdered By: Silvestre Grover on 07-03-2024 CO2 [Moles/Vol] Carbon dioxide, tota l [Moles/volume] in Serum or Plasma 21.0-31.0 [facility] Chloride [Moles/volume] in [place] or PlasmaOrdered By: Silvestre Grover on 07-03-2024 Chloride [Moles/Vol] Chloride [Moles/vol ume] in Serum or Plasma 98-107 [facility] Creatinine [Mass/volume] in Serum or PlasmaOrdered By: Silvestre Grover on 07-03-2024 Creatinine [Mass/Vol] Creatinine [Mass/v olume] in Serum or Plasma 0.70-1.30 [facility] Glucose [Mass/volume] in Ser um or PlasmaOrdered By: Silvestre Grover on 07-03-2024 Glucose [Mass/Vol] Glucose [Mass/volume ] in Serum or Plasma 70-100 [facility] Comment on above: ADA recommended refe rence rangeRandom Glucose Reference Range is dependent on time and content of last meal. Glucose of more than 200 mg/dL in a nonstressed, ambulatory subject supports the diagnosis of Diabetes Mellitus. No Panel InformationOrdered By: Silvestre Grover on 07-03-2024 Estimated GFR (CKD-EPI) > 60.0 mL/Min [facility] Creatinine Clearance (Chem 75.58 [facility] > 60.0 mL/Min [facility] 75.58 [facility] Potassium [Moles/volume] in Serum or PlasmaOrdered By: Silvestre Grover on 07-03-2024 Potassium [Moles/Vol] Potassium [Moles/v olume] in Serum or Plasma Low 3.5-5.1 [facility] Serum or plasma anion gap de terminationOrdered By: Silvestre Grover on 07-03-2024 Anion gap [Moles/Vol] Serum or plasma an ion gap determination 6.0-15.0 [facility] Sodium [Moles/volume] in Ser um or PlasmaOrdered By: Silvestre Grover on 07-03-2024 Sodium [Moles/Vol] Sodium [Moles/volume ] in Serum or Plasma 136-145 [facility] Urea nitrogen [Mass/volume] in Serum or PlasmaOrdered By: Silvestre Grover on 07-03-2024 Urea nitrogen [Mass/Vol] Urea nitrogen [Mass/volume] in Serum or Plasma 7-25 [facility] Basic Metabolic Panelon 06-21 Anion gap [Moles/Vol] 12.2 mmol/L Normal 6.0-15.0 [facility] Comment on above: Performed By: #### B MP, DIFF CBC ####[address] Calcium [Mass/Vol] 8.4 mg/dL Low 8.6-10.3 [facility] Comment on above: Performed By: #### B MP, DIFF CBC ####[address] Chloride [Moles/Vol] 106 mmol/L Normal 98-107 [facility] Comment on above: Performed By: #### B MP, DIFF CBC ####[place] [phone] [facility] CO2 [Moles/Vol] 29.1 mmol/L Normal 21.0-31.0 [facility] Comment on above: Performed By: #### B MP, DIFF CBC ####[place] [phone] [facility] Creatinine [Mass/Vol] 1.20 mg/dL Normal 0.70-1.30 [facility] Comment on above: Performed By: #### B MP, DIFF CBC ####[place] [phone] [facility] Creatinine Clr Calc Pharmacy 67.36 Normal [facility] Comment on above: Result Comment: PERF ORMED BY:[place] [address] [place], [place] [phone] MEDICAL DIRECTORGINA CARDONA M.D. Performed By: #### B MP, DIFF CBC ####[place] [address] [place] [address] [facility] GFR/1.73 sq M.predicted MDRD (S/P/Bld) [Vol rate/Area] mL/min/{1.73_m2} Normal [facility] Comment on above: Performed By: #### B MP, DIFF CBC ####[place] [id number] [facility] Glucose [Mass/Vol] 91 mg/dL Normal 70-100 [facility] Comment on above: Result Comment: [place] Glucose Reference Range is dependent on time and content of last meal. Glucose of more than 200 mg/dL in a nonstressed, ambulatory subject supports the diagnosis of Diabetes Mellitus. ADA recommended reference range Performed By: #### B MP, DIFF CBC ####[place] [id number] [facility] Potassium [Moles/Vol] 3.3 mmol/L Low 3.5-5.1 [facility] Comment on above: Performed By: #### B MP, DIFF CBC ####[place] [id number] [facility] Sodium [Moles/Vol] 144 mmol/L Normal 136-145 [facility] Comment on above: Performed By: #### B MP, DIFF CBC ####[place] [phone] [facility] Urea nitrogen [Mass/Vol] 22 mg/dL Normal 7-25 [facility] Comment on above: Performed By: #### B MP, DIFF CBC ####[place] [phone] [place] Basophils Auto (Bld) [#/Vol] Ordered By: Silvestre Grover on 07-02-2024 Basophils (Bld) [#/Vol] Automated basophil count [facility] Basophils/100 WBC Auto (Bld) Ordered By: Silvestre Grover on 07-02-2024 Basophils/100 WBC (Bld) Automated basophil % [facility] Diff and CBCon 07-02-2024 Erythrocyte distribution width (RBC) [Ratio] 14.8 % Normal 12.0-14.8 [facility] Comment on above: Performed By: #### B MP, DIFF CBC ####[address] Hematocrit (Bld) [Volume fraction] 36.3 % Low 38.8-50.0 [facility] Comment on above: Performed By: #### B MP, DIFF CBC ####[address] Hemoglobin (Bld) [Mass/Vol] 12.4 g/dL Low 13.0-17.0 [facility] Comment on above: Performed By: #### B MP, DIFF CBC ####[address] Lymphocytes/100 WBC (Bld) 15 % Low 18-42 [facility] Comment on above: Performed By: #### B MP, DIFF CBC ####[address] MCH (RBC) [Entitic mass] 31.4 pg Normal 27.5-35.2 [facility] Comment on above: Performed By: #### B MP, DIFF CBC ####[address] MCV (RBC) [Entitic vol] 91.8 fL Normal 83.5-101 [facility] Comment on above: Performed By: #### B MP, DIFF CBC ####[address] Mean Corpuscular HGB Conc 34.2 g/dL Normal 32.5-35.6 [facility] Comment on above: Performed By: #### B MP, DIFF CBC ####[address] Monocytes/100 WBC (Bld) 8 % Normal 2-11 [facility] Comment on above: Performed By: #### B MP, DIFF CBC ####[place] [id number] [facility] Myelocytes 1 % High 0-0 [facility] Comment on above: Performed By: #### B MP, DIFF CBC ####[place] [id number] [facility] Platelet Estimate Normal Normal Normal [facility] Comment on above: Performed By: #### B MP, DIFF CBC ####[place] [phone] [facility] Platelet mean volume (Bld) [Entitic vol] 8.8 fL Normal 6.6-10.1 [facility] Comment on above: Performed By: #### B MP, DIFF CBC ####[place] [phone] [facility] Platelet Morphology Normal Normal Normal [facility] Comment on above: Result Comment: PERF ORMED BY:[address] [place], [place] [phone] MEDICAL DIRECTORGINA CARDONA M.D. Performed By: #### B MP, DIFF CBC ####[place] [phone] [facility] Platelets (Bld) [#/Vol] 195 10*3/uL Normal 150-450 [facility] Comment on above: Performed By: #### B MP, DIFF CBC ####[place] [phone] [facility] RBC (Bld) [#/Vol] 3.95 10*6/uL Normal 3.90-5.60 [facility] Comment on above: Performed By: #### B MP, DIFF CBC ####[place] [phone] [facility] RBC morphology finding Nom (Bld) Normal Normal Normal [facility] Comment on above: Performed By: #### B MP, DIFF CBC ####[place] [id number] [facility] Segmented neutrophils/100 WBC (Bld) 76 % High 50-70 [facility] Comment on above: Performed By: #### B MP, DIFF CBC ####[facility] [facility] [id number] WBC (Bld) [#/Vol] 9.1 10*3/uL Normal 4.1-10.5 [facility] Comment on above: Performed By: #### B MP, DIFF CBC ####[facility] [id number] Eosinophils Auto (Bld) [#/Vo l]Ordered By: Silvestre Grover on 07-02-2024 Eosinophils (Bld) [#/Vol] Automated eosinophil count [facility] Eosinophils/100 WBC Auto (Bl d)Ordered By: Silvestre Grover on 07-02-2024 Eosinophils/100 WBC (Bld) Automated eosinophil % [facility] Erythrocyte distribution wid th Auto (RBC) [Ratio]Ordered By: Silvestre Grover on 07-02-2024 Erythrocyte distribution width (RBC) [Ratio] Erythrocyte distribution width [Ratio] by Automated count 12.0-14.8 [facility] Erythrocyte morphology findi ng [Identifier] in BloodOrdered By: Silvestre Grover on 07-02-2024 RBC morphology finding Nom (Bld) RBC morphology Normal [facility] Hematocrit Auto (Bld) [Volum e fraction]Ordered By: Silvestre Grover on 07-02-2024 Hematocrit (Bld) [Volume fraction] Hematocrit [Volume Fraction] of Blood by Automated count Low 38.8-50.0 [facility] Hemoglobin [Mass/volume] in BloodOrdered By: Silvestre Grover on 07-02-2024 Hemoglobin (Bld) [Mass/Vol] Hemoglobin [Mass/volume] in Blood Low 13.0-17.0 [facility] Leukocytes [#/volume] correc blessing for nucleated erythrocytes in Blood by Automated counOrdered By: Silvestre Grover on 07-02-2024 WBC corrected for nucl RBC Auto (Bld) [#/Vol] Leukocytes [#/volume] corrected for nucleated erythrocytes in Blood by Automated coun 4.1-10.5 [facility] Lymphocytes Auto (Bld) [#/Vo l]Ordered By: Silvestre Grover on 07-02-2024 Lymphocytes (Bld) [#/Vol] Lymphocytes [#/volume] in Blood by Automated count [facility] Lymphocytes/100 WBC Auto (Bl d)Ordered By: Silvestre Grover on 07-02-2024 Lymphocytes/100 WBC (Bld) Lymphocytes/100 leukocytes in Blood by Automated count [facility] Lymphocytes/100 WBC Manual c nt (Bld)Ordered By: Silvestre Grover on 07-02-2024 Lymphocytes/100 WBC (Bld) Lymphocytes/100 leukocytes in Blood by Manual count Low 18-42 [facility] MCH Auto (RBC) [Entitic mass ]Ordered By: Silvestre Grover on 07-02-2024 MCH (RBC) [Entitic mass] MCH [Entitic mass] by Automated count 27.5-35.2 [facility] MCHC Auto (RBC) [Mass/Vol]Or dered By: Silvestre Grover on 07-02-2024 MCHC (RBC) [Mass/Vol] MCHC [Mass/volume] by Automated count 32.5-35.6 [facility] MCV Auto (RBC) [Entitic vol] Ordered By: Silvestre Grover on 07-02-2024 MCV (RBC) [Entitic vol] MCV [Entitic volume] by Automated count 83.5-101 [facility] Monocytes Auto (Bld) [#/Vol] Ordered By: Silvestre Grover on 07-02-2024 Monocytes (Bld) [#/Vol] Automated blood monocyte count [facility] Monocytes/100 WBC Auto (Bld) Ordered By: Silvestre Grover on 07-02-2024 Monocytes/100 WBC (Bld) Automated monocyte % [facility] Monocytes/100 WBC Manual cnt (Bld)Ordered By: Silvestre Grover on 07-02-2024 Monocytes/100 WBC (Bld) Monocytes/100 leukocytes in Blood by Manual count 2-11 [facility] Myelocytes/100 WBC Manual cn t (Bld)Ordered By: Silvestre Grover on 07-02-2024 Myelocytes/100 WBC (Bld) Myelocytes/100 leukocytes in Blood by Manual count High 0-0 [facility] Neutrophils Auto (Bld) [#/Vo l]Ordered By: Silvestre Grover on 07-02-2024 Neutrophils (Bld) [#/Vol] Neutrophils [#/volume] in Blood by Automated count [facility] Neutrophils/100 WBC Auto (Bl d)Ordered By: Silvestre Grover on 07-02-2024 Neutrophils/100 WBC (Bld) Automated neutrophil % [facility] Nucleated erythrocytes [Pres ence] in Blood by Automated countOrdered By: Silvestre Grover on 07-02-2024 Nucleated RBC Auto Ql (Bld) Nucleated erythrocytes [Presence] in Blood by Automated count [facility] Platelet adequacy [Presence] in Blood by Light microscopyOrdered By: Silvestre Grover on 07-02-2024 Platelets LM Ql (Bld) Platelet adequacy [Presence] in Blood by Light microscopy Normal [facility] Platelet mean volume Auto (B ld) [Entitic vol]Ordered By: Silvestre Grover on 07-02-2024 Platelet mean volume (Bld) [Entitic vol] Platelet mean volume [Entitic volume] in Blood by Automated count 6.6-10.1 [facility] Platelet morphology finding [Identifier] in BloodOrdered By: Silvestre Grover on 07-02-2024 Platelet morphology finding Nom (Bld) Platelet morphology finding [Identifier] in Blood Normal [facility] Platelets Auto (Bld) [#/Vol] Ordered By: Silvestre Grover on 07-02-2024 Platelets (Bld) [#/Vol] Platelets [#/volume] in Blood by Automated count 150-450 [facility] RBC Auto (Bld) [#/Vol]Ordere d By: Silvestre Grover on 07-02-2024 RBC (Bld) [#/Vol] Erythrocytes [#/volu me] in Blood by Automated count 3.90-5.60 [facility] Segmented neutrophils/100 WB C Manual cnt (Bld)Ordered By: Silvestre Grover on 07-02-2024 Segmented neutrophils/100 WBC (Bld) Manual blood segmented neutrophils/100 leukocytes High 50-70 [facility] WBC Auto (Bld) [#/Vol]Ordere d By: Silvestre Grover on 07-02-2024 WBC (Bld) [#/Vol] Leukocytes [#/volume ] in Blood by Automated count 4.1-10.5 [facility] Basic Metabolic Panelon 11-0 Anion gap [Moles/Vol] 10.3 mmol/L Normal 6.0-15.0 [facility] Comment on above: Performed By: #### B MP ####[place] [id number] [facility] Calcium [Mass/Vol] 8.6 mg/dL Normal 8.6-10.3 [facility] Comment on above: Performed By: #### B MP ####[place] [id number] [facility] Chloride [Moles/Vol] 102 mmol/L Normal 98-107 [facility] Comment on above: Performed By: #### B MP ####[place] [id number] [facility] CO2 [Moles/Vol] 32.9 mmol/L High 21.0-31.0 [facility] Comment on above: Performed By: #### B MP ####[place] [id number] [facility] Creatinine [Mass/Vol] 1.26 mg/dL Normal 0.70-1.30 [facility] Comment on above: Performed By: #### B MP ####[place] [phone] [facility] Creatinine Clr Calc Pharmacy 64.44 Normal [facility] Comment on above: Result Comment: PERF ORMED BY:[address] [place], [place] [phone] MEDICAL HUY CARDONA M.D. Performed By: #### B MP ####[place] [phone] [facility] GFR/1.73 sq M.predicted MDRD (S/P/Bld) [Vol rate/Area] 57.657 mL/min/{1.73_m2} Normal [facility] Comment on above: Performed By: #### B MP ####[place] [phone] [facility] Glucose [Mass/Vol] 97 mg/dL Normal 70-100 [facility] Comment on above: Result Comment: [facility] Glucose Reference Range is dependent on time and content of last meal. Glucose of more than 200 mg/dL in a nonstressed, ambulatory subject supports the diagnosis of Diabetes Mellitus. ADA recommended reference range Performed By: #### B MP ####[address] Potassium [Moles/Vol] 3.2 mmol/L Low 3.5-5.1 [facility] Comment on above: Performed By: #### B MP ####[address] Sodium [Moles/Vol] 142 mmol/L Normal 136-145 [facility] Comment on above: Performed By: #### B MP ####[address] Urea nitrogen [Mass/Vol] 30 mg/dL High 7-25 [facility] Comment on above: Performed By: #### B MP ####[place] [phone] [facility] Basic Metabolic Panelon 11-0 -2023 Anion gap [Moles/Vol] Not performed Normal 6.0-15.0 [facility] Comment on above: Performed By: #### B MP ####[place] [phone] [facility] Calcium [Mass/Vol] 8.9 mg/dL Normal 8.6-10.3 [facility] Comment on above: Performed By: #### B MP ####[place] [phone] [facility] Chloride [Moles/Vol] 103 mmol/L Normal 98-107 [facility] Comment on above: Performed By: #### B MP ####[place] [phone] [facility] CO2 [Moles/Vol] 28.9 mmol/L Normal 21.0-31.0 [facility] Comment on above: Performed By: #### B MP ####[place] [phone] [facility] Creatinine [Mass/Vol] 1.27 mg/dL Normal 0.70-1.30 [facility] Comment on above: Performed By: #### B MP ####[place] [phone] [facility] Creatinine Clr Calc Pharmacy 63.75 Normal [facility] Comment on above: Result Comment: PERF ORMED BY:[address] [place], [place] [phone] MEDICAL HUY CARDONA M.D. Performed By: #### B MP ####[address] [address] [facility] GFR/1.73 sq M.predicted MDRD (S/P/Bld) [Vol rate/Area] 57.112 mL/min/{1.73_m2} Normal [facility] Comment on above: Performed By: #### B MP ####[place] [phone] [facility] Glucose [Mass/Vol] 122 mg/dL High 70-100 [facility] Comment on above: Result Comment: [facility] Glucose Reference Range is dependent on time and content of last meal. Glucose of more than 200 mg/dL in a nonstressed, ambulatory subject supports the diagnosis of Diabetes Mellitus. ADA recommended reference range Performed By: #### B MP ####[place] [phone] [facility] Potassium Normal 3.5-5.1 [facility] Comment on above: Result Comment: Spec imen hemolyzed, redraw requested Performed By: #### B MP ####[address] [address] [facility] Sodium [Moles/Vol] 140 mmol/L Normal 136-145 [facility] Comment on above: Performed By: #### B MP ####[place] [phone] [facility] Urea nitrogen [Mass/Vol] 38 mg/dL High 7-25 [facility] Comment on above: Performed By: #### B MP ####[place] [phone] [facility] Redraw Potassiumon Potassium [Moles/Vol] 3.5 mmol/L Normal 3.5-5.1 [facility] Comment on above: Result Comment: PERF ORMED BY:[facility] [place], [place] [phone] MEDICAL DIRECTORGINA CARDONA M.D. Performed By: #### R ARJUN Wong ####[address] [address] [facility] Alanine aminotransferase [En zymatic activity/volume] in Serum or PlasmaOrdered By: Antonia Grier on 06-23-2024 ALT [Catalytic activity/Vol] Alanine aminotransferase [Enzymatic activity/volume] in Serum or Plasma 7-52 [facility] Albumin [Mass/volume] in Ser um or Plasma by Bromocresol green (BCG) dye binding methoOrdered By: Antonia Grier on 06-23-2024 Albumin BCG dye [Mass/Vol] Albumin [Mass/volume] in Serum or Plasma by Bromocresol green (BCG) dye binding metho 3.5-5.7 [facility] Alkaline phosphatase [Enzyma tic activity/volume] in Serum or PlasmaOrdered By: Antonia Grier on 06-23-2024 ALP [Catalytic activity/Vol] Alkaline phosphatase [Enzymatic activity/volume] in Serum or Plasma 34-104 [facility] Aspartate aminotransferase [ Enzymatic activity/volume] in Serum or PlasmaOrdered By: Antonia Grier on 06-23-2024 AST [Catalytic activity/Vol] Aspartate aminotransferase [Enzymatic activity/volume] in Serum or Plasma 13-39 [facility] Bilirubin.total [Mass/volume ] in Serum or PlasmaOrdered By: Antonia Grier on 06-23-2024 Bilirubin [Mass/Vol] Bilirubin.total [Mass/volume] in Serum or Plasma 0.3-1.0 [facility] Complete Blood Count Auto Di ffon 06-23-2024 Basophils (Bld) [#/Vol] 0.0 10*3/uL Normal 0.0-0.2 [facility] Comment on above: Result Comment: PERF ORMED BY:[place] [address] [place], [place] [phone] MEDICAL DIRECTORGINA CARDONA M.D. Performed By: #### C MP, PAB, CBC ####[address] Basophils/100 WBC (Bld) 0.2 % Normal . [facility] Comment on above: Performed By: #### C MP, PAB, CBC ####[address] Eosinophils (Bld) [#/Vol] 0.0 10*3/uL Normal 0.0-0.45 [facility] Comment on above: Performed By: #### C MP, PAB, CBC ####[address] Eosinophils/100 WBC (Bld) 0.1 % Normal . [facility] Comment on above: Performed By: #### C MP, PAB, CBC ####[address] Erythrocyte distribution width (RBC) [Ratio] 14.7 % Normal 12.0-14.8 [facility] Comment on above: Performed By: #### C MP, PAB, CBC ####[address] Hematocrit (Bld) [Volume fraction] 40.9 % Normal 38.8-50.0 [facility] Comment on above: Performed By: #### C MP, PAB, CBC ####[address] Hemoglobin (Bld) [Mass/Vol] 13.6 g/dL Normal 13.0-17.0 [facility] Comment on above: Performed By: #### C MP, PAB, CBC ####[address] Lymphocytes (Bld) [#/Vol] 1.2 10*3/uL Normal 1.00-4.8 [facility] Comment on above: Performed By: #### C MP, PAB, CBC ####[address] Lymphocytes/100 WBC (Bld) 10.7 % Normal . [facility] Comment on above: Performed By: #### C MP, PAB, CBC ####[address] MCH (RBC) [Entitic mass] 30.8 pg Normal 27.5-35.2 [facility] Comment on above: Performed By: #### C MP, PAB, CBC ####[address] MCV (RBC) [Entitic vol] 92.4 fL Normal 83.5-101 [facility] Comment on above: Performed By: #### C MP, PAB, CBC ####[address] Mean Corpuscular HGB Conc 33.3 g/dL Normal 32.5-35.6 [facility] Comment on above: Performed By: #### C MP, PAB, CBC ####[address] Monocytes (Bld) [#/Vol] 1.0 10*3/uL High 0.0-0.8 [facility] Comment on above: Performed By: #### C MP, PAB, CBC ####[address] Monocytes/100 WBC (Bld) 8.7 % Normal . [facility] Comment on above: Performed By: #### C MP, PAB, CBC ####[address] Neutrophils (Bld) [#/Vol] 9.1 10*3/uL High 1.8-7.7 [facility] Comment on above: Performed By: #### C MP, PAB, CBC ####[address] Neutrophils/100 WBC (Bld) 80.3 % Normal . [facility] Comment on above: Performed By: #### C MP, PAB, CBC ####[address] NRBC% 0.1 /100{WBC} Normal 0-0.5 [facility] Comment on above: Performed By: #### C MP, PAB, CBC ####[address] Platelet mean volume (Bld) [Entitic vol] 8.6 fL Normal 6.6-10.1 [facility] Comment on above: Performed By: #### C MP, PAB, CBC ####[address] Platelets (Bld) [#/Vol] 195 10*3/uL Normal 150-450 [facility] Comment on above: Performed By: #### C MP, PAB, CBC ####[address] RBC (Bld) [#/Vol] 4.43 10*6/uL Normal 3.90-5.60 [facility] Comment on above: Performed By: #### C MP, PAB, CBC ####[address] WBC (Bld) [#/Vol] 11.3 10*3/uL High 4.1-10.5 [facility] Comment on above: Performed By: #### C MP, PAB, CBC ####[address] Comprehensive Metabolic Pane rc 06-23-2024 Albumin [Mass/Vol] 3.5 g/dL Normal 3.5-5.7 [facility] Comment on above: Performed By: #### C MP, PAB, CBC ####[address] Albumin/Globulin [Mass ratio] 1.6 {ratio} Normal [facility] Comment on above: Performed By: #### C MP, PAB, CBC ####[address] ALP [Catalytic activity/Vol] 50 U/L Normal 34-104 [facility] Comment on above: Performed By: #### C MP, PAB, CBC ####[place] [phone] [facility] ALT [Catalytic activity/Vol] 16 U/L Normal 7-52 [facility] Comment on above: Performed By: #### C MP, PAB, CBC ####[place] [phone] [facility] Anion gap [Moles/Vol] 11.3 mmol/L Normal 6.0-15.0 [facility] Comment on above: Performed By: #### C MP, PAB, CBC ####[address] AST [Catalytic activity/Vol] 18 U/L Normal 13-39 [facility] Comment on above: Performed By: #### C MP, PAB, CBC ####[address] Bilirubin [Mass/Vol] 0.7 mg/dL Normal 0.3-1.0 [facility] Comment on above: Performed By: #### C MP, PAB, CBC ####[address] Calcium [Mass/Vol] 9.1 mg/dL Normal 8.6-10.3 [facility] Comment on above: Performed By: #### C MP, PAB, CBC ####[address] Chloride [Moles/Vol] 100 mmol/L Normal 98-107 [facility] Comment on above: Performed By: #### C MP, PAB, CBC ####[place] [phone] [facility] CO2 [Moles/Vol] 33.6 mmol/L High 21.0-31.0 [facility] Comment on above: Performed By: #### C MP, PAB, CBC ####[place] [phone] [facility] Creatinine [Mass/Vol] 1.62 mg/dL High 0.70-1.30 [facility] Comment on above: Performed By: #### C SUZANNE, PAB, CBC ####[address] Creatinine Clr Calc Pharmacy 50.98 Normal [facility] Comment on above: Performed By: #### C MP, PAB, CBC ####[address] GFR/1.73 sq M.predicted MDRD (S/P/Bld) [Vol rate/Area] 42.646 mL/min/{1.73_m2} Normal [facility] Comment on above: Performed By: #### C SUZANNE, PAB, CBC ####[address] Globulin (S) [Mass/Vol] 2.2 g/dL Normal [facility] Comment on above: Performed By: #### C SUZANNE, PAB, CBC ####[address] Glucose [Mass/Vol] 119 mg/dL High 70-100 [facility] Comment on above: Result Comment: [facility] Glucose Reference Range is dependent on time and content of last meal. Glucose of more than 200 mg/dL in a nonstressed, ambulatory subject supports the diagnosis of Diabetes Mellitus. ADA recommended reference range Performed By: #### C MP, PAB, CBC ####[address] Potassium [Moles/Vol] 3.9 mmol/L Normal 3.5-5.1 [facility] Comment on above: Performed By: #### C MP, PAB, CBC ####[address] Protein [Mass/Vol] 5.7 g/dL Low 6.4-8.9 [facility] Comment on above: Performed By: #### C MP, PAB, CBC ####[address] Sodium [Moles/Vol] 141 mmol/L Normal 136-145 [facility] Comment on above: Performed By: #### C MP, PAB, CBC ####[place] [phone] [facility] Urea nitrogen [Mass/Vol] 44 mg/dL High 7-25 [facility] Comment on above: Performed By: #### C MP, PAB, CBC ####[place] [id number] [place] [phone] [facility] Globulin Calc (S) [Mass/Vol] Ordered By: Antonia Grier on 06-23-2024 Globulin (S) [Mass/Vol] Serum globulin measurement by calculation (mass/volume) [facility] Prealbuminon 06-23-2024 Prealbumin [Mass/Vol] 32.1 mg/dL Normal 17.0-34.0 [facility] Comment on above: Result Comment: PERF ORMED BY:[address] [place], [place] [phone] MEDICAL DIRECTORGINA CARDONA M.D. Performed By: #### C MP, PAB, CBC ####[place] [phone] [facility] Prealbumin [Mass/volume] in Serum or PlasmaOrdered By: Antonia Grier on 06-23-2024 Prealbumin [Mass/Vol] Prealbumin [Mass/v olume] in Serum or Plasma 17.0-34.0 [facility] Protein [Mass/volume] in Ser um or PlasmaOrdered By: Antonia Grier on 06-23-2024 Protein [Mass/Vol] Protein [Mass/volume ] in Serum or Plasma Low 6.4-8.9 [facility] Serum or plasma albumin/glob ulin mass ratioOrdered By: Antonia Grier on 06-23-2024 Albumin/Globulin [Mass ratio] Serum or plasma albumin/globulin mass ratio [facility] Automated basophil %Ordered By: Mateo Horne on 06-22-2024 Basophils/100 WBC (Bld) 0.1 % Normal . [facility] Comment on above: Performed By: #### M G, CBC, BMP ####[facility] [address] Automated basophil countOrde red By: Mateo Horne on 06-22-2024 Basophils (Bld) [#/Vol] 0.0 10*3/uL Normal 0.0-0.2 [facility] Comment on above: Result Comment: PERF ORMED BY:[address] [place] [id number] MEDICAL DIRECTORGINA CARDONA M.D. Performed By: #### M G, CBC, BMP ####[address] Automated blood monocyte cou ntOrdered By: Mateo Horne on 06-22-2024 Monocytes (Bld) [#/Vol] 1.1 10*3/uL High 0.0-0.8 [facility] Comment on above: Performed By: #### M G, CBC, BMP ####[address] Automated eosinophil %Ordere d By: Mateo Horne on 06-22-2024 Eosinophils/100 WBC (Bld) 0.2 % Normal . [facility] Comment on above: Performed By: #### M G, CBC, BMP ####[address] Automated eosinophil countOr dered By: Mateo Horne on 06-22-2024 Eosinophils (Bld) [#/Vol] 0.0 10*3/uL Normal 0.0-0.45 [facility] Comment on above: Performed By: #### M G, CBC, BMP ####[address] Automated monocyte %Ordered By: Mateo Horne on 06-22-2024 Monocytes/100 WBC (Bld) 9.8 % Normal . [facility] Comment on above: Performed By: #### M G, CBC, BMP ####[address] Automated neutrophil %Ordere d By: Mateo Horne on 06-22-2024 Neutrophils/100 WBC (Bld) 77.3 % Normal . [facility] Comment on above: Performed By: #### M G, CBC, BMP ####[facility] [id number] [place] [address] [facility] Basic Metabolic Panelon Creatinine Clr Calc Pharmacy 47.41 Normal [facility] Comment on above: Performed By: #### M G, CBC, BMP ####[facility] [id number] [place] [address] [facility] GFR/1.73 sq M.predicted MDRD (S/P/Bld) [Vol rate/Area] 39.967 mL/min/{1.73_m2} Normal [facility] Comment on above: Performed By: #### M G, CBC, BMP ####[place] [id number] [place] [phone] [facility] Basophils Auto (Bld) [#/Vol] Ordered By: Mateo Horne on 06-22-2024 Basophils (Bld) [#/Vol] Automated basophil count 0.0-0.2 [facility] Basophils/100 WBC Auto (Bld) Ordered By: Mateo Horne on 06-22-2024 Basophils/100 WBC (Bld) Automated basophil % . [facility] Calcium [Mass/volume] in Ser um or PlasmaOrdered By: Mateo Horne on 06-22-2024 Calcium [Mass/Vol] 8.9 mg/dL Normal 8.6-10.3 [facility] Comment on above: Performed By: #### M G, CBC, BMP ####[facility] [id number] [place] [phone] [facility] Calcium [Mass/Vol] Calcium [Mass/volume ] in Serum or Plasma 8.6-10.3 [facility] Carbon dioxide, total [Moles /volume] in Serum or PlasmaOrdered By: Mateo Horne on 06-22-2024 CO2 [Moles/Vol] 32.8 mmol/L High 21.0-31.0 [facility] Comment on above: Performed By: #### M G, CBC, BMP ####[place] [address] [place] [id number] [facility] CO2 [Moles/Vol] Carbon dioxide, tota l [Moles/volume] in Serum or Plasma High 21.0-31.0 [facility] Chloride [Moles/volume] in [place] or PlasmaOrdered By: Mateo Horne on 06-22-2024 Chloride [Moles/Vol] 98 mmol/L Normal 98-107 [facility] Comment on above: Performed By: #### M G, CBC, BMP ####[place] [address] [place] [id number] [facility] Chloride [Moles/Vol] Chloride [Moles/vol ume] in Serum or Plasma 98-107 [facility] Complete Blood Count Auto Di ffon 06-22-2024 Mean Corpuscular HGB Conc 33.6 g/dL Normal 32.5-35.6 [facility] Comment on above: Performed By: #### M G, CBC, BMP ####[place] [id number] [facility] NRBC% 0.1 /100{WBC} Normal 0-0.5 [facility] Comment on above: Performed By: #### M G, CBC, BMP ####[place] [id number] [facility] Creatinine [Mass/volume] in Serum or PlasmaOrdered By: Mateo Horne on 06-22-2024 Creatinine [Mass/Vol] 1.71 mg/dL High 0.70-1.30 [facility] Comment on above: Performed By: #### M G, CBC, BMP ####[place] [id number] [facility] Creatinine [Mass/Vol] Creatinine [Mass/v olume] in Serum or Plasma High 0.70-1.30 [facility] Eosinophils Auto (Bld) [#/Vo l]Ordered By: Mateo Horne on 06-22-2024 Eosinophils (Bld) [#/Vol] Automated eosinophil count 0.0-0.45 [facility] Eosinophils/100 WBC Auto (Bl d)Ordered By: Mateo Horne on 06-22-2024 Eosinophils/100 WBC (Bld) Automated eosinophil % . [facility] Erythrocyte distribution wid th Auto (RBC) [Ratio]Ordered By: Mateo Horne on 06-22-2024 Erythrocyte distribution width (RBC) [Ratio] Erythrocyte distribution width [Ratio] by Automated count 12.0-14.8 [facility] Erythrocyte distribution wid th [Ratio] by Automated countOrdered By: Mateo Horne on 06-22-2024 Erythrocyte distribution width (RBC) [Ratio] 14.8 % Normal 12.0-14.8 [facility] Comment on above: Performed By: #### M G, CBC, BMP ####[place] [address] [place] [phone] [facility] Erythrocytes [#/volume] in B lood by Automated countOrdered By: Mateo Horne on 06-22-2024 RBC (Bld) [#/Vol] 4.40 10*6/uL Normal 3.90-5.60 [facility] Comment on above: Performed By: #### M G, CBC, BMP ####[facility] [place] [address] [facility] Glucose [Mass/volume] in Ser um or PlasmaOrdered By: Mateo Horne on 06-22-2024 Glucose [Mass/Vol] 116 mg/dL High 70-100 [facility] Comment on above: ADA recommended refe rence rangeRandom Glucose Reference Range is dependent on time and content of last meal. Glucose of more than 200 mg/dL in a nonstressed, ambulatory subject supports the diagnosis of Diabetes Mellitus. Result Comment: [place] om Glucose Reference Range is dependent on time and content of last meal. Glucose of more than 200 mg/dL in a nonstressed, ambulatory subject supports the diagnosis of Diabetes Mellitus. ADA recommended reference range Performed By: #### M G, CBC, BMP ####[facility] [id number] [place] [id number] [facility] Glucose [Mass/Vol] Glucose [Mass/volume ] in Serum or Plasma High 70-100 [facility] Comment on above: ADA recommended refe rence rangeRandom Glucose Reference Range is dependent on time and content of last meal. Glucose of more than 200 mg/dL in a nonstressed, ambulatory subject supports the diagnosis of Diabetes Mellitus. Hematocrit Auto (Bld) [Volum e fraction]Ordered By: Mateo Horne on 06-22-2024 Hematocrit (Bld) [Volume fraction] Hematocrit [Volume Fraction] of Blood by Automated count 38.8-50.0 [facility] Hematocrit [Volume Fraction] of Blood by Automated countOrdered By: Mateo Horne on 06-22-2024 Hematocrit (Bld) [Volume fraction] 40.5 % Normal 38.8-50.0 [facility] Comment on above: Performed By: #### M G, CBC, BMP ####[place] [id number] [facility] Hemoglobin [Mass/volume] in BloodOrdered By: Mateo Horne on 06-22-2024 Hemoglobin (Bld) [Mass/Vol] 13.6 g/dL Normal 13.0-17.0 [facility] Comment on above: Performed By: #### M G, CBC, BMP ####[facility] [id number] [place], [place] [id number] [facility] Hemoglobin (Bld) [Mass/Vol] Hemoglobin [Mass/volume] in Blood 13.0-17.0 [facility] Leukocytes [#/volume] correc blessing for nucleated erythrocytes in Blood by Automated counOrdered By: Mateo Horne on 06-22-2024 WBC corrected for nucl RBC Auto (Bld) [#/Vol] 11.1 10*3/uL High 4.1-10.5 [facility] WBC corrected for nucl RBC Auto (Bld) [#/Vol] Leukocytes [#/volume] corrected for nucleated erythrocytes in Blood by Automated coun High 4.1-10.5 [facility] Leukocytes [#/volume] in Blo od by Automated countOrdered By: Mateo Horne on 06-22-2024 WBC (Bld) [#/Vol] 11.1 10*3/uL High 4.1-10.5 [facility] Comment on above: Performed By: #### M G, CBC, BMP ####[place] [address] [place] [phone] [facility] Lymphocytes Auto (Bld) [#/Vo l]Ordered By: Mateo Horne on 06-22-2024 Lymphocytes (Bld) [#/Vol] Lymphocytes [#/volume] in Blood by Automated count 1.00-4.8 [facility] Lymphocytes [#/volume] in Bl ood by Automated countOrdered By: Mateo Horne on 06-22-2024 Lymphocytes (Bld) [#/Vol] 1.4 10*3/uL Normal 1.00-4.8 [facility] Comment on above: Performed By: #### M G, CBC, BMP ####[place] [id number] [facility] Lymphocytes/100 WBC Auto (Bl d)Ordered By: Mateo Horne on 06-22-2024 Lymphocytes/100 WBC (Bld) Lymphocytes/100 leukocytes in Blood by Automated count . [facility] Lymphocytes/100 leukocytes i n Blood by Automated countOrdered By: Mateo Horne on 06-22-2024 Lymphocytes/100 WBC (Bld) 12.6 % Normal . [facility] Comment on above: Performed By: #### M G, CBC, BMP ####[place] [id number] [facility] MCH Auto (RBC) [Entitic mass ]Ordered By: Mateo Horne on 06-22-2024 MCH (RBC) [Entitic mass] MCH [Entitic mass] by Automated count 27.5-35.2 [facility] MCH [Entitic mass] by Automa blessing countOrdered By: Mateo Horne on 06-22-2024 MCH (RBC) [Entitic mass] 30.9 pg Normal 27.5-35.2 [facility] Comment on above: Performed By: #### M G, CBC, BMP ####[place] [address] [place] [address] [facility] MCHC Auto (RBC) [Mass/Vol]Or dered By: Mateo Horne on 06-22-2024 MCHC (RBC) [Mass/Vol] 33.6 g/dL 32.5-35.6 [facility] MCHC (RBC) [Mass/Vol] MCHC [Mass/volume] by Automated count 32.5-35.6 [facility] MCV Auto (RBC) [Entitic vol] Ordered By: Mateo Horne on 06-22-2024 MCV (RBC) [Entitic vol] MCV [Entitic volume] by Automated count 83.5-101 [facility] MCV [Entitic volume] by Auto mated countOrdered By: Mateo Horne on 06-22-2024 MCV (RBC) [Entitic vol] 92.0 fL Normal 83.5-101 [facility] Comment on above: Performed By: #### M G, CBC, BMP ####[place] [address] [place] [address] [facility] Magnesium [Mass/volume] in [place] or PlasmaOrdered By: Mateo Horne on 06-22-2024 Magnesium [Mass/Vol] 2.0 mg/dL Normal 1.9-2.7 [facility] Comment on above: Result Comment: PERF ORMED BY:[place] [address] [place], [place] [id number] MEDICAL DIRECTORGINA CARDONA M.D. Performed By: #### M G, CBC, BMP ####[address] [address] [facility] Magnesium [Mass/Vol] Magnesium [Mass/vol ume] in Serum or Plasma 1.9-2.7 [facility] Monocytes Auto (Bld) [#/Vol] Ordered By: Mateo Horne on 06-22-2024 Monocytes (Bld) [#/Vol] Automated blood monocyte count High 0.0-0.8 [facility] Monocytes/100 WBC Auto (Bld) Ordered By: Mateo Horne on 06-22-2024 Monocytes/100 WBC (Bld) Automated monocyte % . [facility] Neutrophils Auto (Bld) [#/Vo l]Ordered By: Mateo Horne on 06-22-2024 Neutrophils (Bld) [#/Vol] Neutrophils [#/volume] in Blood by Automated count High 1.8-7.7 [facility] Neutrophils [#/volume] in Bl ood by Automated countOrdered By: Mateo Horne on 06-22-2024 Neutrophils (Bld) [#/Vol] 8.6 10*3/uL High 1.8-7.7 [facility] Comment on above: Performed By: #### M G, CBC, BMP ####[facility] Neutrophils/100 WBC Auto (Bl d)Ordered By: Mateo Horne on 06-22-2024 Neutrophils/100 WBC (Bld) Automated neutrophil % . [facility] No Panel InformationOrdered By: Mateo Horne on 06-22-2024 Estimated GFR (CKD-EPI) 39.967 mL/Min [facility] Creatinine Clearance (Chem 47.41 [facility] 39.967 mL/Min [facility] 47.41 [facility] Nucleated erythrocytes [Pres ence] in Blood by Automated countOrdered By: Mateo Horne on 06-22-2024 Nucleated RBC Auto Ql (Bld) 0.1 /100{WBC} 0-0.5 [facility] Nucleated RBC Auto Ql (Bld) Nucleated erythrocytes [Presence] in Blood by Automated count 0-0.5 [facility] Platelet mean volume Auto (B ld) [Entitic vol]Ordered By: Mateo Horne on 06-22-2024 Platelet mean volume (Bld) [Entitic vol] Platelet mean volume [Entitic volume] in Blood by Automated count 6.6-10.1 [facility] Platelet mean volume [Entiti c volume] in Blood by Automated countOrdered By: Mateo Horne on 06-22-2024 Platelet mean volume (Bld) [Entitic vol] 8.6 fL Normal 6.6-10.1 [facility] Comment on above: Performed By: #### M G, CBC, BMP ####[facility] [id number] Platelets Auto (Bld) [#/Vol] Ordered By: Mateo Horne on 06-22-2024 Platelets (Bld) [#/Vol] Platelets [#/volume] in Blood by Automated count 150-450 [facility] Platelets [#/volume] in Bloo d by Automated countOrdered By: Mateo Horne on 06-22-2024 Platelets (Bld) [#/Vol] 187 10*3/uL Normal 150-450 [facility] Comment on above: Performed By: #### M G, CBC, BMP ####[address] Potassium [Moles/volume] in Serum or PlasmaOrdered By: Mateo Horne on 06-22-2024 Potassium [Moles/Vol] 3.2 mmol/L Low 3.5-5.1 [facility] Comment on above: Performed By: #### M G, CBC, BMP ####[place] [id number] [facility] Potassium [Moles/Vol] Potassium [Moles/v olume] in Serum or Plasma Low 3.5-5.1 [facility] RBC Auto (Bld) [#/Vol]Ordere d By: Mateo Horne on 06-22-2024 RBC (Bld) [#/Vol] Erythrocytes [#/volu me] in Blood by Automated count 3.90-5.60 [facility] Serum or plasma anion gap de terminationOrdered By: Mateo Horne on 06-22-2024 Anion gap [Moles/Vol] 12.4 mmol/L Normal 6.0-15.0 [facility] Comment on above: Performed By: #### M G, CBC, BMP ####[place] [address] [place] [address] [facility] Anion gap [Moles/Vol] Serum or plasma an ion gap determination 6.0-15.0 [facility] Sodium [Moles/volume] in Ser um or PlasmaOrdered By: Mateo Horne on 06-22-2024 Sodium [Moles/Vol] 140 mmol/L Normal 136-145 [facility] Comment on above: Performed By: #### M G, CBC, BMP ####[place] [id number] [facility] Sodium [Moles/Vol] Sodium [Moles/volume ] in Serum or Plasma 136-145 [facility] Urea nitrogen [Mass/volume] in Serum or PlasmaOrdered By: Mateo Horne on 06-22-2024 Urea nitrogen [Mass/Vol] 45 mg/dL [facility] 7-25 [facility] Comment on above: Performed By: #### M G, CBC, BMP ####[place] [id number] [facility] Urea nitrogen [Mass/Vol] Urea nitrogen [Mass/volume] in Serum or Plasma [facility] 725 [facility] WBC Auto (Bld) [#/Vol]Ordere d By: Mateo Horne on 06-22-2024 WBC (Bld) [#/Vol] Leukocytes [#/volume ] in Blood by Automated count High 4.1-10.5 [facility] Basic Metabolic Panelon 11-0 Anion gap [Moles/Vol] 12.1 mmol/L Normal 6.0-15.0 [facility] Comment on above: Performed By: #### C BC, MG, BMP ####[address] [address] [facility] Calcium [Mass/Vol] 9.2 mg/dL Normal 8.6-10.3 [facility] Comment on above: Performed By: #### C BC, MG, BMP ####[address] [address] [facility] Chloride [Moles/Vol] 97 mmol/L Low 98-107 [facility] Comment on above: Performed By: #### C BC, MG, BMP ####[place] [address] CO2 [Moles/Vol] 34.3 mmol/L High 21.0-31.0 [facility] Comment on above: Performed By: #### C BC, MG, BMP ####[address] Creatinine [Mass/Vol] 1.51 mg/dL High 0.70-1.30 [facility] Comment on above: Performed By: #### C BC, MG, BMP ####[address] Creatinine Clr Calc Pharmacy 53.97 Normal [facility] Comment on above: Performed By: #### C BC, MG, BMP ####[address] GFR/1.73 sq M.predicted MDRD (S/P/Bld) [Vol rate/Area] 46.401 mL/min/{1.73_m2} Normal [facility] Comment on above: Performed By: #### C BC, MG, BMP ####[address] Glucose [Mass/Vol] 133 mg/dL High 70-100 [facility] Comment on above: Result Comment: [place] Glucose Reference Range is dependent on time and content of last meal. Glucose of more than 200 mg/dL in a nonstressed, ambulatory subject supports the diagnosis of Diabetes Mellitus. ADA recommended reference range Performed By: #### C BC, MG, BMP ####[address] Potassium [Moles/Vol] 3.4 mmol/L Low 3.5-5.1 [facility] Comment on above: Performed By: #### C BC, MG, BMP ####[address] Sodium [Moles/Vol] 140 mmol/L Normal 136-145 [facility] Comment on above: Performed By: #### C BC, MG, BMP ####[address] Urea nitrogen [Mass/Vol] 35 mg/dL High 7-25 [facility] Comment on above: Performed By: #### C BC, MG, BMP ####[address] Complete Blood Count Auto Di ffon 06-21-2024 Basophils (Bld) [#/Vol] 0.0 10*3/uL Normal 0.0-0.2 [facility] Comment on above: Result Comment: PERF ORMED BY:[address] [place] [id number] MEDICAL DIRECTORGINA CARDONA M.D. Performed By: #### C BC, MG, BMP ####[address] Basophils/100 WBC (Bld) 0.2 % Normal . [facility] Comment on above: Performed By: #### C BC, MG, BMP ####[address] Eosinophils (Bld) [#/Vol] 0.0 10*3/uL Normal 0.0-0.45 [facility] Comment on above: Performed By: #### C BC, MG, BMP ####[address] Eosinophils/100 WBC (Bld) 0.0 % Normal . [facility] Comment on above: Performed By: #### C BC, MG, BMP ####[address] Erythrocyte distribution width (RBC) [Ratio] 15.0 % High 12.0-14.8 [facility] Comment on above: Performed By: #### C BC, MG, BMP ####[address] Hematocrit (Bld) [Volume fraction] 40.8 % Normal 38.8-50.0 [facility] Comment on above: Performed By: #### C BC MG, BMP ####[address] Hemoglobin (Bld) [Mass/Vol] 13.7 g/dL Normal 13.0-17.0 [facility] Comment on above: Performed By: #### C BC MG, BMP ####[address] Lymphocytes (Bld) [#/Vol] 1.0 10*3/uL Normal 1.00-4.8 [facility] Comment on above: Performed By: #### C BC MG, BMP ####[address] Lymphocytes/100 WBC (Bld) 8.9 % Normal . [facility] Comment on above: Performed By: #### C BC MG, BMP ####[address] MCH (RBC) [Entitic mass] 31.0 pg Normal 27.5-35.2 [facility] Comment on above: Performed By: #### C BC MG, BMP ####[address] MCV (RBC) [Entitic vol] 92.0 fL Normal 83.5-101 [facility] Comment on above: Performed By: #### C BC MG, BMP ####[address] Mean Corpuscular HGB Conc 33.7 g/dL Normal 32.5-35.6 [facility] Comment on above: Performed By: #### C BC MG, BMP ####[address] Monocytes (Bld) [#/Vol] 1.1 10*3/uL High 0.0-0.8 [facility] Comment on above: Performed By: #### C BC, MG, BMP ####[address] Monocytes/100 WBC (Bld) 9.1 % Normal . [facility] Comment on above: Performed By: #### C BC MG, BMP ####[address] Neutrophils (Bld) [#/Vol] 9.6 10*3/uL High 1.8-7.7 [facility] Comment on above: Performed By: #### C BC, MG, BMP ####[address] Neutrophils/100 WBC (Bld) 81.8 % Normal . [facility] Comment on above: Performed By: #### C BC MG, BMP ####[address] NRBC% 0.1 /100{WBC} Normal 0-0.5 [facility] Comment on above: Performed By: #### C BC, MG, BMP ####[address] Platelet mean volume (Bld) [Entitic vol] 8.4 fL Normal 6.6-10.1 [facility] Comment on above: Performed By: #### C BC, MG, BMP ####[address] Platelets (Bld) [#/Vol] 199 10*3/uL Normal 150-450 [facility] Comment on above: Performed By: #### C BC, MG, BMP ####[address] RBC (Bld) [#/Vol] 4.43 10*6/uL Normal 3.90-5.60 [facility] Comment on above: Performed By: #### C BC, MG, BMP ####[address] WBC (Bld) [#/Vol] 11.8 10*3/uL High 4.1-10.5 [facility] Comment on above: Performed By: #### C BC, MG, BMP ####[address] [address] [facility] Magnesiumon 06-21-2024 Magnesium [Mass/Vol] 1.8 mg/dL Low 1.9-2.7 [facility] Comment on above: Result Comment: PERF ORMED BY:[address] [place] [id number] MEDICAL DIRECTORGINA CARDONA M.D. Performed By: #### C BC, MG, BMP ####[place] [id number] [facility] A1C with Estimated Average G luon 06-20-2024 Glucose [Mass/Vol] 148 mg/dL Normal [facility] Comment on above: Result Comment: PERF ORMED BY:[address] [place], [place] [id number] MEDICAL DIRECTORGINA CARDONA M.D. Performed By: #### H S TROP, BMP, MG, A1C WTH eA, CBC ####[address] [address] [facility] Basic Metabolic Panelon 05-23 Anion gap [Moles/Vol] 12.7 mmol/L Normal 6.0-15.0 [facility] Comment on above: Performed By: #### H S TROP, BMP, MG, A1C WTH eA, CBC ####[place] [id number] [facility] Calcium [Mass/Vol] 9.1 mg/dL Normal 8.6-10.3 [facility] Comment on above: Performed By: #### H S TROP, BMP, MG, A1C WTH eA, CBC ####[place] [id number] [facility] Chloride [Moles/Vol] 101 mmol/L Normal 98-107 [facility] Comment on above: Performed By: #### H S TROP, BMP, MG, A1C WTH eA, CBC ####[place] [id number] [facility] CO2 [Moles/Vol] 33.0 mmol/L High 21.0-31.0 [facility] Comment on above: Performed By: #### H S TROP, BMP, MG, A1C WTH eA, CBC ####[place] [address] Creatinine [Mass/Vol] 1.27 mg/dL Normal 0.70-1.30 [facility] Comment on above: Performed By: #### H S TROP, BMP, MG, A1C WTH eA, CBC ####[place] [address] [place] Creatinine Clr Calc Pharmacy 64.75 Normal [facility] Comment on above: Performed By: #### H S TROP, BMP, MG, A1C WTH eA, CBC ####[place] [address] [place] GFR/1.73 sq M.predicted MDRD (S/P/Bld) [Vol rate/Area] 57.112 mL/min/{1.73_m2} Normal [facility] Comment on above: Performed By: #### H S TROP, BMP, MG, A1C WTH eA, CBC ####[address] Glucose [Mass/Vol] 140 mg/dL High 70-100 [facility] Comment on above: Result Comment: [place] Glucose Reference Range is dependent on time and content of last meal. Glucose of more than 200 mg/dL in a nonstressed, ambulatory subject supports the diagnosis of Diabetes Mellitus. ADA recommended reference range Performed By: #### H S TROP, BMP, MG, A1C WTH eA, CBC ####[address] Potassium [Moles/Vol] 3.7 mmol/L Normal 3.5-5.1 [facility] Comment on above: Performed By: #### H S TROP, BMP, MG, A1C WTH eA, CBC ####[address] Sodium [Moles/Vol] 143 mmol/L Normal 136-145 [facility] Comment on above: Performed By: #### H S TROP, BMP, MG, A1C WTH eA, CBC ####[address] Urea nitrogen [Mass/Vol] 27 mg/dL High 7-25 [facility] Comment on above: Performed By: #### H S TROP, BMP, MG, A1C WTH eA, CBC ####[address] Blood estimated average gluc ose determination by estimation from glycated hemoglobinOrdered By: Mateo Horne on 06-20-2024 Average glucose Estimated from glycated hemoglobin (Bld) [Mass/Vol] Glucose mean value [Mass/volume] in Blood Estimated from glycated hemoglobin [facility] Complete Blood Count Auto Di ffon 06-20-2024 Basophils (Bld) [#/Vol] 0.1 10*3/uL Normal 0.0-0.2 [facility] Comment on above: Result Comment: PERF ORMED BY:[address]enaRaulKANS[place], [place] [id number] MEDICAL DIRECTORGINA CARDONA M.D. Performed By: #### H S TROP, BMP, MG, A1C WTH eA, CBC ####[address] Basophils/100 WBC (Bld) 1.0 % Normal . [facility] Comment on above: Performed By: #### H S TROP, BMP, MG, A1C WTH eA, CBC ####[address] Eosinophils (Bld) [#/Vol] 0.0 10*3/uL Normal 0.0-0.45 [facility] Comment on above: Performed By: #### H S TROP, BMP, MG, A1C WTH eA, CBC ####[place] [id number] [facility] Eosinophils/100 WBC (Bld) 0.0 % Normal . [facility] Comment on above: Performed By: #### H S TROP, BMP, MG, A1C WTH eA, CBC ####[address] Erythrocyte distribution width (RBC) [Ratio] 14.7 % Normal 12.0-14.8 [facility] Comment on above: Performed By: #### H S TROP, BMP, MG, A1C WTH eA, CBC ####[address] Hematocrit (Bld) [Volume fraction] 41.6 % Normal 38.8-50.0 [facility] Comment on above: Performed By: #### H S TROP, BMP, MG, A1C WTH eA, CBC ####[address] Hemoglobin (Bld) [Mass/Vol] 13.9 g/dL Normal 13.0-17.0 [facility] Comment on above: Performed By: #### H S TROP, BMP, MG, A1C WTH eA, CBC ####[address] Lymphocytes (Bld) [#/Vol] 0.7 10*3/uL Low 1.00-4.8 [facility] Comment on above: Performed By: #### H S TROP, BMP, MG, A1C WTH eA, CBC ####[address] Lymphocytes/100 WBC (Bld) 7.1 % Normal . [facility] Comment on above: Performed By: #### H S TROP, BMP, MG, A1C WTH eA, CBC ####[address] MCH (RBC) [Entitic mass] 30.9 pg Normal 27.5-35.2 [facility] Comment on above: Performed By: #### H S TROP, BMP, MG, A1C WTH eA, CBC ####[address] MCV (RBC) [Entitic vol] 92.7 fL Normal 83.5-101 [facility] Comment on above: Performed By: #### H S TROP, BMP, MG, A1C WTH eA, CBC ####[address] Mean Corpuscular HGB Conc 33.4 g/dL Normal 32.5-35.6 [facility] Comment on above: Performed By: #### H S TROP, BMP, MG, A1C WTH eA, CBC ####[address] Monocytes (Bld) [#/Vol] 0.7 10*3/uL Normal 0.0-0.8 [facility] Comment on above: Performed By: #### H S TROP, BMP, MG, A1C WTH eA, CBC ####[address] Monocytes/100 WBC (Bld) 7.2 % Normal . [facility] Comment on above: Performed By: #### H S TROP, BMP, MG, A1C WTH eA, CBC ####[address] Neutrophils (Bld) [#/Vol] 8.0 10*3/uL High 1.8-7.7 [facility] Comment on above: Performed By: #### H S TROP, BMP, MG, A1C WTH eA, CBC ####[address] Neutrophils/100 WBC (Bld) 84.7 % Normal . [facility] Comment on above: Performed By: #### H S TROP, BMP, MG, A1C WTH eA, CBC ####[address] NRBC% 0.1 /100{WBC} Normal 0-0.5 [facility] Comment on above: Performed By: #### H S TROP, BMP, MG, A1C WTH eA, CBC ####[address] Platelet mean volume (Bld) [Entitic vol] 8.5 fL Normal 6.6-10.1 [facility] Comment on above: Performed By: #### H S TROP, BMP, MG, A1C WTH eA, CBC ####[address] Platelets (Bld) [#/Vol] 196 10*3/uL Normal 150-450 [facility] Comment on above: Performed By: #### H S TROP, BMP, MG, A1C WTH eA, CBC ####[address] RBC (Bld) [#/Vol] 4.49 10*6/uL Normal 3.90-5.60 [facility] Comment on above: Performed By: #### H S TROP, BMP, MG, A1C WTH eA, CBC ####[place] [address] WBC (Bld) [#/Vol] 9.5 10*3/uL Normal 4.1-10.5 [facility] Comment on above: Performed By: #### H S TROP, BMP, MG, A1C WTH eA, CBC ####[address] ECG 12 lead ECGon 06-20-2024 ECG 12 lead ECG Normal [facility] ECH echo transthoracicon ECH echo transthoracic Normal Th e [facility] Glucose mean value [Mass/vol ume] in Blood Estimated from glycated hemoglobinOrdered By: Mateo Horne on 06-20-2024 Average glucose Estimated from glycated hemoglobin (Bld) [Mass/Vol] 148 mg/dL [facility] Hemoglobin A1c percentageOrd ered By: Mateo Horne on 06-20-2024 HbA1c (Bld) [Mass fraction] 6.8 % High 4.3-5.6 [facility] Comment on above: Increased risk for d iabetes: 5.7 - 6.4diabetes: >6.4glycemic control for adults with diabetes: <7.0 Result Comment: Incr eased risk for diabetes: 5.7 - 6.4 diabetes: >6.4 glycemic control for adults with diabetes: <7.0 Performed By: #### H S TROP, BMP, MG, A1C WTH eA, CBC ####[place] [id number] [place] [id number] [facility] Hemoglobin A1c/Hemoglobin.to sherrell in BloodOrdered By: Mateo Horne on 06-20-2024 HbA1c (Bld) [Mass fraction] Hemoglobin A1c percentage High 4.3-5.6 [facility] Comment on above: Increased risk for d iabetes: 5.7 - 6.4diabetes: >6.4glycemic control for adults with diabetes: <7.0 Magnesiumon 06-20-2024 Magnesium [Mass/Vol] 1.7 mg/dL Low 1.9-2.7 [facility] Comment on above: Result Comment: PERF ORMED BY:[place] [address] [place], [place] [id number] MEDICAL DIRECTORGINA CARDONA M.D. Performed By: #### H S TROP, BMP, MG, A1C WT eA, CBC ####[place] [address] [place] [address] [facility] Troponin I High Sensitivityo n 06-20-2024 Troponin I High Sensitivity 8.2 pg/mL Normal 0.0-20.0 [facility] Comment on above: Result Comment: PERF ORMED BY:[place] [address] [place], [place] [id number] MEDICAL DIRECTORGINA CARDONA M.D. Performed By: #### H S TROP, BMP, MG, A1C WTH eA, CBC ####[address] [address] [facility] Troponin I.cardiac [Mass/vol ume] in Serum or Plasma by Detection limit <= 0.01 ng/Ordered By: Mateo Horne on 06-20-2024 Troponin I.cardiac DL <= 0.01 ng/mL [Mass/Vol] 8.2 pg/mL 0.0-20.0 [facility] Troponin I.cardiac DL <= 0.01 ng/mL [Mass/Vol] Troponin I.cardiac [Mass/volume] in Serum or Plasma by Detection limit <= 0.01 ng/ 0.0-20.0 [facility] Alanine aminotransferase [En zymatic activity/volume] in Serum or PlasmaOrdered By: Dg Jacobson on 06-19-2024 ALT [Catalytic activity/Vol] 16 U/L Normal [facility] Comment on above: Performed By: #### B BRIM SETTER, MG, HS TROP, CBC, CMP, CK ####[place] [address] ALT [Catalytic activity/Vol] Alanine aminotransferase [Enzymatic activity/volume] in Serum or Plasma [facility] Albumin [Mass/volume] in Ser um or Plasma by Bromocresol green (BCG) dye binding methoOrdered By: Dg Jacobson on 06-19-2024 Albumin BCG dye [Mass/Vol] 3.8 g/dL 3.5-5.7 [facility] Albumin BCG dye [Mass/Vol] Albumin [Mass/volume] in Serum or Plasma by Bromocresol green (BCG) dye binding metho 3.5-5.7 [facility] Alkaline phosphatase [Enzyma tic activity/volume] in Serum or PlasmaOrdered By: Dg Jacobson on 06-19-2024 ALP [Catalytic activity/Vol] 52 U/L Normal [facility] Comment on above: Performed By: #### B BRIM SETTER, MG, HS TROP, CBC, CMP, CK ####[address] ALP [Catalytic activity/Vol] Alkaline phosphatase [Enzymatic activity/volume] in Serum or Plasma [facility] Aspartate aminotransferase [ Enzymatic activity/volume] in Serum or PlasmaOrdered By: Dg Jacobson on 06-19-2024 AST [Catalytic activity/Vol] 21 U/L Normal [facility] Comment on above: Performed By: #### B BRIM SETTER, MG, HS TROP, CBC, CMP, CK ####[address] AST [Catalytic activity/Vol] Aspartate aminotransferase [Enzymatic activity/volume] in Serum or Plasma [facility] Automated basophil %Ordered By: Dg Jacobson on 06-19-2024 Basophils/100 WBC (Bld) 1.0 % Normal . [facility] Comment on above: Performed By: #### B BRIM SETTER, MG, HS TROP, CBC, CMP, CK ####[address] Automated basophil countOrde red By: Dg Jacobson on 06-19-2024 Basophils (Bld) [#/Vol] 0.1 10*3/uL Normal 0.0-0.2 [facility] Comment on above: Result Comment: PERF ORMED BY:[address] [place], [place] [id number] MEDICAL DIRECTORGINA CARDONA M.D. Performed By: #### B BRIM SETTER, MG, HS TROP, CBC, CMP, CK ####[address] Automated blood monocyte cou ntOrdered By: Dg Jacobson on 06-19-2024 Monocytes (Bld) [#/Vol] 1.0 10*3/uL High 0.0-0.8 [facility] Comment on above: Performed By: #### B BRIM SETTER, MG, HS TROP, CBC, CMP, CK ####[address] Automated eosinophil %Ordere d By: Dg Jacobson on 06-19-2024 Eosinophils/100 WBC (Bld) 1.2 % Normal . [facility] Comment on above: Performed By: #### B BRIM SETTER, MG, HS TROP, CBC, CMP, CK ####[address] Automated eosinophil countOr dered By: Dg Jacobson on 06-19-2024 Eosinophils (Bld) [#/Vol] 0.1 10*3/uL Normal 0.0-0.45 [facility] Comment on above: Performed By: #### B BRIM SETTER, MG, HS TROP, CBC, CMP, CK ####[address] Automated monocyte %Ordered By: Dg Jacobson on 06-19-2024 Monocytes/100 WBC (Bld) 11.3 % Normal . [facility] Comment on above: Performed By: #### B BRIM SETTER, MG, HS TROP, CBC, CMP, CK ####[address] Automated neutrophil %Ordere d By: Dg Jacobson on 06-19-2024 Neutrophils/100 WBC (Bld) 59.0 % Normal . [facility] Comment on above: Performed By: #### B BRIM SETTER, MG, HS TROP, CBC, CMP, CK ####[address] BNP ser/plasOrdered By: José Manuel Jacobson on 06-19-2024 Natriuretic peptide B (Bld) [Mass/Vol] 114.0 pg/mL High 5-100 [facility] Comment on above: Result Comment: PERF ORMED BY:[address] [place] [id number] MEDICAL DIRECTORGINA CARDONA M.D. Performed By: #### B BRIM SETTER, MG, HS TROP, CBC, CMP, CK ####[address] Bilirubin.total [Mass/volume ] in Serum or PlasmaOrdered By: Dg Jacobson on 06-19-2024 Bilirubin [Mass/Vol] 0.8 mg/dL Normal 0.3-1.0 [facility] Comment on above: Performed By: #### B BRIM SETTER, MG, HS TROP, CBC, CMP, CK ####[address] Bilirubin [Mass/Vol] Bilirubin.total [Mass/volume] in Serum or Plasma 0.3-1.0 [facility] Calcium [Mass/volume] in Ser um or PlasmaOrdered By: Dg Jacobson on 06-19-2024 Calcium [Mass/Vol] 9.0 mg/dL Normal 8.6-10.3 [facility] Comment on above: Performed By: #### B BRIM SETTER, MG, HS TROP, CBC, CMP, CK ####[address] Carbon dioxide, total [Moles /volume] in Serum or PlasmaOrdered By: Dg Jacobson on 06-19-2024 CO2 [Moles/Vol] 29.8 mmol/L Normal 21.0-31.0 [facility] Comment on above: Performed By: #### B BRIM SETTER, MG, HS TROP, CBC, CMP, CK ####[address] Chloride [Moles/volume] in [place] or PlasmaOrdered By: Dg Jacobson on 06-19-2024 Chloride [Moles/Vol] 106 mmol/L Normal 98-107 [facility] Comment on above: Performed By: #### B BRIM SETTER, MG, HS TROP, CBC, CMP, CK ####[address] Complete Blood Count Auto Di ffon 06-19-2024 Mean Corpuscular HGB Conc 33.1 g/dL Normal 32.5-35.6 [facility] Comment on above: Performed By: #### B BRIM SETTER, MG, HS TROP, CBC, CMP, CK ####[address] Monocytes/100 WBC (Bld) 17.50 % Normal 0.00-20.00 [facility] Comment on above: Performed By: #### B BRIM SETTER, MG, HS TROP, CBC, CMP, CK ####[address] NRBC% 0.1 /100{WBC} Normal 0-0.5 [facility] Comment on above: Performed By: #### B BRIM SETTER, MG, HS TROP, CBC, CMP, CK ####[address] Comprehensive Metabolic Pane rc 06-19-2024 Albumin [Mass/Vol] 3.8 g/dL Normal 3.5-5.7 [facility] Comment on above: Performed By: #### B BRIM SETTER, MG, HS TROP, CBC, CMP, CK ####[address] Creatinine Clr Calc Pharmacy 62.88 Normal [facility] Comment on above: Result Comment: PERF ORMED BY:[address] [place], [place] [id number] MEDICAL DIRECTORGINA CARDONA M.D. Performed By: #### B BRIM SETTER, MG, HS TROP, CBC, CMP, CK ####[address] GFR/1.73 sq M.predicted MDRD (S/P/Bld) [Vol rate/Area] 53.076 mL/min/{1.73_m2} Normal [facility] Comment on above: Performed By: #### B BRIM SETTER, MG, HS TROP, CBC, CMP, CK ####[address] Creatine kinase [Enzymatic a ctivity/volume] in Serum or PlasmaOrdered By: Dg Jacobson on 06-19-2024 CK [Catalytic activity/Vol] 153 U/L Normal [facility] Comment on above: Performed By: #### B BRIM SETTER, MG, HS TROP, CBC, CMP, CK ####[place] [id number] [facility] CK [Catalytic activity/Vol] Creatine kinase [Enzymatic activity/volume] in Serum or Plasma [facility] Creatinine [Mass/volume] in Serum or PlasmaOrdered By: Dg Jacobson on 06-19-2024 Creatinine [Mass/Vol] 1.35 mg/dL High 0.70-1.30 [facility] Comment on above: Performed By: #### B BRIM SETTER, MG, HS TROP, CBC, CMP, CK ####[address] ECG 12 lead ECGon 06-19-2024 ECG 12 lead ECG Normal [facility] Erythrocyte distribution wid th [Ratio] by Automated countOrdered By: Dg Jacobson on 06-19-2024 Erythrocyte distribution width (RBC) [Ratio] 15.2 % High 12.0-14.8 [facility] Comment on above: Performed By: #### B BRIM SETTER, MG, HS TROP, CBC, CMP, CK ####[address] Erythrocytes [#/volume] in B lood by Automated countOrdered By: Dg Jacobson on 06-19-2024 RBC (Bld) [#/Vol] 4.44 10*6/uL Normal 3.90-5.60 [facility] Comment on above: Performed By: #### B BRIM SETTER, MG, HS TROP, CBC, CMP, CK ####[address] Globulin Calc (S) [Mass/Vol] Ordered By: Dg Jacobson on 06-19-2024 Globulin (S) [Mass/Vol] Serum globulin measurement by calculation (mass/volume) [facility] Glucose [Mass/volume] in Ser um or PlasmaOrdered By: Dg Jacobson on 06-19-2024 Glucose [Mass/Vol] 107 mg/dL High 70-100 [facility] Comment on above: ADA recommended refe rence rangeRandom Glucose Reference Range is dependent on time and content of last meal. Glucose of more than 200 mg/dL in a nonstressed, ambulatory subject supports the diagnosis of Diabetes Mellitus. Result Comment: [place] om Glucose Reference Range is dependent on time and content of last meal. Glucose of more than 200 mg/dL in a nonstressed, ambulatory subject supports the diagnosis of Diabetes Mellitus. ADA recommended reference range Performed By: #### B BRIM SETTER, MG, HS TROP, CBC, CMP, CK ####[address] Hematocrit [Volume Fraction] of Blood by Automated countOrdered By: Dg Jacobson on 06-19-2024 Hematocrit (Bld) [Volume fraction] 41.5 % Normal 38.8-50.0 [facility] Comment on above: Performed By: #### B BRIM SETTER, MG, HS TROP, CBC, CMP, CK ####[address] Hemoglobin [Mass/volume] in BloodOrdered By: Dg Jacobson on 06-19-2024 Hemoglobin (Bld) [Mass/Vol] 13.7 g/dL Normal 13.0-17.0 [facility] Comment on above: Performed By: #### B BRIM SETTER, MG, HS TROP, CBC, CMP, CK ####[address] Leukocytes [#/volume] correc blessing for nucleated erythrocytes in Blood by Automated counOrdered By: Dg Jacobson on 06-19-2024 WBC corrected for nucl RBC Auto (Bld) [#/Vol] 8.7 10*3/uL 4.1-10.5 [facility] Leukocytes [#/volume] in Blo od by Automated countOrdered By: Dg Jacobosn on 06-19-2024 WBC (Bld) [#/Vol] 8.7 10*3/uL Normal 4.1-10.5 [facility] Comment on above: Performed By: #### B BRIM SETTER, MG, HS TROP, CBC, CMP, CK ####[address] Lymphocytes [#/volume] in Bl ood by Automated countOrdered By: Dg Jacobson on 06-19-2024 Lymphocytes (Bld) [#/Vol] 2.4 10*3/uL Normal 1.00-4.8 [facility] Comment on above: Performed By: #### B BRIM SETTER, MG, HS TROP, CBC, CMP, CK ####[address] Lymphocytes/100 leukocytes i n Blood by Automated countOrdered By: Dg Jacobson on 06-19-2024 Lymphocytes/100 WBC (Bld) 27.5 % Normal . [facility] Comment on above: Performed By: #### B BRIM SETTER, MG, HS TROP, CBC, CMP, CK ####[address] MCH [Entitic mass] by Automa blessing countOrdered By: Dg Jacobson on 06-19-2024 MCH (RBC) [Entitic mass] 31.0 pg Normal 27.5-35.2 [facility] Comment on above: Performed By: #### B BRIM SETTER, MG, HS TROP, CBC, CMP, CK ####[place] [id number] [place] [phone] [facility] MCHC Auto (RBC) [Mass/Vol]Or dered By: Dg Jacobson on 06-19-2024 MCHC (RBC) [Mass/Vol] 33.1 g/dL 32.5-35.6 [facility] MCV [Entitic volume] by Auto mated countOrdered By: Dg Jacobson on 06-19-2024 MCV (RBC) [Entitic vol] 93.6 fL Normal 83.5-101 [facility] Comment on above: Performed By: #### B BRIM SETTER, MG, HS TROP, CBC, CMP, CK ####[place] [address] [place] [id number] [facility] Magnesiumon 06-19-2024 Magnesium [Mass/Vol] 1.9 mg/dL Normal 1.9-2.7 [facility] Comment on above: Result Comment: PERF ORMED BY:[address] [place], [place] [phone] MEDICAL DIRECTORGINA CARDONA M.D. Performed By: #### B BRIM SETTER, MG, HS TROP, CBC, CMP, CK ####[place] [address] [place] [id number] [facility] Monocyte distribution width [Entitic volume] in Blood by AutomatedOrdered By: Dg Jacobson on 06-19-2024 Monocyte distribution width Auto (Bld) [Entitic vol] 17.50 % 0.00-20.00 [facility] Monocyte distribution width Auto (Bld) [Entitic vol] Monocyte distribution width [Entitic volume] in Blood by Automated 0.00-20.00 [facility] Natriuretic peptide B [Mass/ Vol]Ordered By: Dg Jacobson on 06-19-2024 Natriuretic peptide B (Bld) [Mass/Vol] BNP ser/plas High 5-100 [facility] Neutrophils [#/volume] in Bl ood by Automated countOrdered By: Dg Jacobson on 06-19-2024 Neutrophils (Bld) [#/Vol] 5.1 10*3/uL Normal 1.8-7.7 [facility] Comment on above: Performed By: #### B BRIM SETTER, MG, HS TROP, CBC, CMP, CK ####[place] [address] No Panel InformationOrdered By: Dg Jacobson on 06-19-2024 Estimated GFR (CKD-EPI) 53.076 mL/Min [facility] Creatinine Clearance (Chem 62.88 [facility] Nucleated erythrocytes [Pres ence] in Blood by Automated countOrdered By: Dg Jacobson on 06-19-2024 Nucleated RBC Auto Ql (Bld) 0.1 /100{WBC} 0-0.5 [facility] Platelet mean volume [Entiti c volume] in Blood by Automated countOrdered By: Dg Jacobson on 06-19-2024 Platelet mean volume (Bld) [Entitic vol] 8.1 fL Normal 6.6-10.1 [facility] Comment on above: Performed By: #### B BRIM SETTER, MG, HS TROP, CBC, CMP, CK ####[address] Platelets [#/volume] in Bloo d by Automated countOrdered By: Dg Jacobson on 06-19-2024 Platelets (Bld) [#/Vol] 200 10*3/uL Normal 150-450 [facility] Comment on above: Performed By: #### B BRIM SETTER, MG, HS TROP, CBC, CMP, CK ####[address] Potassium [Moles/volume] in Serum or PlasmaOrdered By: Dg Jacobson on 06-19-2024 Potassium [Moles/Vol] 3.4 mmol/L Low 3.5-5.1 [facility] Comment on above: Performed By: #### B BRIM SETTER, MG, HS TROP, CBC, CMP, CK ####[place] [id number] [facility] Protein [Mass/volume] in Ser um or PlasmaOrdered By: Dg Jacobson on 06-19-2024 Protein [Mass/Vol] 6.5 g/dL Normal 6.4-8.9 [facility] Comment on above: Performed By: #### B BRIM SETTER, MG, HS TROP, CBC, CMP, CK ####[place] [id number] [facility] Protein [Mass/Vol] Protein [Mass/volume ] in Serum or Plasma 6.4-8.9 [facility] Serum globulin measurement b y calculation (mass/volume)Ordered By: Dg Jacobson on 06-19-2024 Globulin (S) [Mass/Vol] 2.7 g/dL Normal [facility] Comment on above: Performed By: #### B BRIM SETTER, MG, HS TROP, CBC, CMP, CK ####[place] [id number] [facility] Serum or plasma albumin/glob ulin mass ratioOrdered By: Dg Jacobson on 06-19-2024 Albumin/Globulin [Mass ratio] 1.4 {ratio} [facility] Comment on above: Performed By: #### B BRIM SETTER, MG, HS TROP, CBC, CMP, CK ####[place] [id number] [facility] Albumin/Globulin [Mass ratio] Serum or plasma albumin/globulin mass ratio [facility] Serum or plasma anion gap de terminationOrdered By: Dg Jacobson on 06-19-2024 Anion gap [Moles/Vol] 11.6 mmol/L Normal 6.0-15.0 [facility] Comment on above: Performed By: #### B BRIM SETTER, MG, HS TROP, CBC, CMP, CK ####[place] [id number] [facility] Sodium [Moles/volume] in Ser um or PlasmaOrdered By: Dg Jacobson on 06-19-2024 Sodium [Moles/Vol] 144 mmol/L Normal 136-145 [facility] Comment on above: Performed By: #### B BRIM SETTER, MG, HS TROP, CBC, CMP, CK ####[place] [phone] [facility] Troponin I High Sensitivityo n 06-19-2024 Troponin I High Sensitivity 10.5 pg/mL Normal 0.0-20.0 [facility] Comment on above: Result Comment: PERF ORMED BY:[address] [place], [place] [id number] MEDICAL DIRECTORGINA CARDONA M.D. Performed By: #### B BRIM SETTER, MG, HS TROP, CBC, CMP, CK ####[place] [id number] [place] [phone] [facility] Troponin I.cardiac [Mass/vol ume] in Serum or Plasma by Detection limit <= 0.01 ng/Ordered By: Dg Jacobson on 06-19-2024 Troponin I.cardiac DL <= 0.01 ng/mL [Mass/Vol] 10.5 pg/mL 0.0-20.0 [facility] Urea nitrogen [Mass/volume] in Serum or PlasmaOrdered By: Dg Jacobson on 06-19-2024 Urea nitrogen [Mass/Vol] 32 mg/dL High 03-14 [facility] Comment on above: Performed By: #### B BRIM SETTER, MG, HS TROP, CBC, CMP, CK ####[place] [phone] [facility] XR chest 1V portableon 06-19 XR chest 1V portable Normal [facility] Alanine aminotransferase [En zymatic activity/volume] in Serum or PlasmaOrdered By: Eriberto Leyva on 02-12-2024 ALT [Catalytic activity/Vol] 22 U/L [facility] Albumin [Mass/volume] in Ser um or Plasma by Bromocresol green (BCG) dye binding methoOrdered By: Eriberto Leyva on 02-12-2024 Albumin BCG dye [Mass/Vol] 3.6 g/dL 3.5-5.7 [facility] Alkaline phosphatase [Enzyma tic activity/volume] in Serum or PlasmaOrdered By: Eriberto Leyva on 02-12-2024 ALP [Catalytic activity/Vol] 62 U/L 34-104 [facility] Aspartate aminotransferase [ Enzymatic activity/volume] in Serum or PlasmaOrdered By: Eriberto Leyva on 02-12-2024 AST [Catalytic activity/Vol] 20 U/L 13-39 [facility] Bacteria [Presence] in Urine by AutomatedOrdered By: Eriberto Leyva on 02-12-2024 Bacteria Auto Ql (U) None seen [HPF] None Seen [facility] Basophils Auto (Bld) [#/Vol] Ordered By: Eriberto Leyva on 02-12-2024 Basophils (Bld) [#/Vol] 0.1 10*3/uL 0.0-0.2 [facility] Basophils/100 WBC Auto (Bld) Ordered By: Eriberto Leyva on 02-12-2024 Basophils/100 WBC (Bld) 0.6 % . [facility] Bilirubin Test strip Ql (U)O rdered By: Eriberto Leyva on 02-12-2024 Bilirubin Ql (U) Negative Negative [facility] Bilirubin.total [Mass/volume ] in Serum or PlasmaOrdered By: Eriberto Leyva on 02-12-2024 Bilirubin [Mass/Vol] 0.8 mg/dL 0.3-1.0 [facility] Calcium [Mass/volume] in Ser um or PlasmaOrdered By: Eriberto Leyva on 02-12-2024 Calcium [Mass/Vol] 9.1 mg/dL 8.6-10.3 [facility] Carbon dioxide, total [Moles /volume] in Serum or PlasmaOrdered By: Eriberto Leyva on 02-12-2024 CO2 [Moles/Vol] 30.7 mmol/L 21.0-31.0 [facility] Chloride [Moles/volume] in [place] or PlasmaOrdered By: Eriberto Leyva on 02-12-2024 Chloride [Moles/Vol] 113 mmol/L 98-107 [facility] Color Auto (U)Ordered By: Lydia Leyva on 02-12-2024 Color (U) Light-yellow Yellow [facility] Creatine kinase [Enzymatic a ctivity/volume] in Serum or PlasmaOrdered By: Eriberto Leyva on 02-12-2024 CK [Catalytic activity/Vol] 113 U/L 30-223 [facility] Creatinine [Mass/volume] in Serum or PlasmaOrdered By: Eriberto Leyva on 02-12-2024 Creatinine [Mass/Vol] 1.26 mg/dL 0.70-1.30 [facility] Eosinophils Auto (Bld) [#/Vo l]Ordered By: Eriberto Leyva on 02-12-2024 Eosinophils (Bld) [#/Vol] 0.0 10*3/uL 0.0-0.45 [facility] Eosinophils/100 WBC Auto (Bl d)Ordered By: Eriberto Leyva on 02-12-2024 Eosinophils/100 WBC (Bld) 0.0 % . [facility] Epithelial cells.squamous [# /area] in Urine sediment by Automated countOrdered By: Eriberto Leyva on 02-12-2024 Epithelial cells.squamous Auto (Urine sed) [#/Area] N/A [facility] Erythrocyte distribution wid th Auto (RBC) [Ratio]Ordered By: Eriberto Leyva on 02-12-2024 Erythrocyte distribution width (RBC) [Ratio] 17.0 % 12.0-14.8 [facility] Erythrocyte sedimentation ra te by Photometric methodOrdered By: Eriberto Leyva on 02-12-2024 ESR Photometric method (Bld) [Velocity] 13 mm/hr 0-19 [facility] Erythrocytes [#/area] in Uri ne sediment by Automated countOrdered By: Eriberto Leyva on 02-12-2024 RBC Auto (Urine sed) [#/Area] 10-19 [HPF] 0-4 [facility] Globulin Calc (S) [Mass/Vol] Ordered By: Eriberto Leyva on 02-12-2024 Globulin (S) [Mass/Vol] 2.4 g/dL [facility] Glucose [Mass/volume] in Ser um or PlasmaOrdered By: Eriberto Leyva on 02-12-2024 Glucose [Mass/Vol] 133 mg/dL 70-100 [facility] Comment on above: ADA recommended refe rence rangeRandom Glucose Reference Range is dependent on time and content of last meal. Glucose of more than 200 mg/dL in a nonstressed, ambulatory subject supports the diagnosis of Diabetes Mellitus. Glucose [Mass/volume] in Uri ne by Test stripOrdered By: Eriberto Leyva on 02-12-2024 Glucose Test strip (U) [Mass/Vol] Normal mg/dL Normal [facility] Hematocrit Auto (Bld) [Volum e fraction]Ordered By: Eriberto Leyva on 02-12-2024 Hematocrit (Bld) [Volume fraction] 41.3 % 38.8-50.0 [facility] Hemoglobin Test strip Ql (U) Ordered By: Eriberto Leyva on 02-12-2024 Hemoglobin Ql (U) Trace Negative [facility] Hemoglobin [Mass/volume] in BloodOrdered By: Eriberto Leyva on 02-12-2024 Hemoglobin (Bld) [Mass/Vol] 13.7 g/dL 13.0-17.0 [facility] Hyaline casts [#/area] in Ur ine sediment by Automated countOrdered By: Eriberto Leyva on 02-12-2024 Hyaline casts Auto (Urine sed) [#/Area] None [LPF] 0-8 [facility] Ketones Test strip Ql (U)Ord ered By: Eriberto Leyva on 02-12-2024 Ketones Ql (U) Negative Negative [facility] Lactate [Moles/volume] in Se rum or PlasmaOrdered By: Eriberto Leyva on 02-12-2024 Lactate [Moles/Vol] 1.2 mmol/L 0.5-2.2 [facility] Leukocyte esterase [Presence ] in Urine by Test stripOrdered By: Eriberto Leyva on 02-12-2024 Leukocyte esterase Test strip Ql (U) Negative Negative [facility] Leukocytes [#/area] in Urine sediment by Automated countOrdered By: Eriberto Leyva on 02-12-2024 WBC Auto (Urine sed) [#/Area] 1-2 [HPF] 0-4 [facility] Leukocytes [#/volume] correc blessing for nucleated erythrocytes in Blood by Automated counOrdered By: Eriberto Leyva on 02-12-2024 WBC corrected for nucl RBC Auto (Bld) [#/Vol] 10.0 10*3/uL 4.1-10.5 [facility] Lymphocytes Auto (Bld) [#/Vo l]Ordered By: Eriberto Leyva on 02-12-2024 Lymphocytes (Bld) [#/Vol] 0.6 10*3/uL 1.00-4.8 [facility] Lymphocytes/100 WBC Auto (Bl d)Ordered By: Eriberto Leyva on 02-12-2024 Lymphocytes/100 WBC (Bld) 6.4 % . [facility] MCH Auto (RBC) [Entitic mass ]Ordered By: Eriberto Leyva on 02-12-2024 MCH (RBC) [Entitic mass] 30.0 pg 27.5-35.2 [facility] MCHC Auto (RBC) [Mass/Vol]Or dered By: Eriberto Leyva on 02-12-2024 MCHC (RBC) [Mass/Vol] 33.2 g/dL 32.5-35.6 [facility] MCV Auto (RBC) [Entitic vol] Ordered By: Eriberto Leyva on 02-12-2024 MCV (RBC) [Entitic vol] 90.2 fL 83.5-101 [facility] Monocyte distribution width [Entitic volume] in Blood by AutomatedOrdered By: Eriberto Leyva on 02-12-2024 Monocyte distribution width Auto (Bld) [Entitic vol] 20.05 % 0.00-20.00 [facility] Comment on above: For adults in ED, MD W > 20.0 may be associated with a higher risk of sepsis during the first 12 hrs of hospital admission Monocytes Auto (Bld) [#/Vol] Ordered By: Eriberto Leyva on 02-12-2024 Monocytes (Bld) [#/Vol] 0.5 10*3/uL 0.0-0.8 [facility] Monocytes/100 WBC Auto (Bld) Ordered By: Eriberto Leyva on 02-12-2024 Monocytes/100 WBC (Bld) 5.2 % . [facility] Neutrophils Auto (Bld) [#/Vo l]Ordered By: Eriberto Leyva on 02-12-2024 Neutrophils (Bld) [#/Vol] 8.8 10*3/uL 1.8-7.7 [facility] Neutrophils/100 WBC Auto (Bl d)Ordered By: Eriberto Leyva on 02-12-2024 Neutrophils/100 WBC (Bld) 87.8 % . [facility] Nitrite Test strip Ql (U)Ord ered By: Eriberto Leyva on 02-12-2024 Nitrite Ql (U) Negative Negative [facility] No Panel InformationOrdered By: Eriberto Leyva on 02-12-2024 Estimated GFR (CKD-EPI) 57.657 mL/Min [facility] Creatinine Clearance (Chem 64.79 [facility] Nucleated erythrocytes [Pres ence] in Blood by Automated countOrdered By: Eriberto Leyva on 02-12-2024 Nucleated RBC Auto Ql (Bld) 0.0 /100{WBC} 0-0.5 [facility] Platelet mean volume Auto (B ld) [Entitic vol]Ordered By: Eriberto Leyva on 02-12-2024 Platelet mean volume (Bld) [Entitic vol] 8.3 fL 6.6-10.1 [facility] Platelets Auto (Bld) [#/Vol] Ordered By: Eriberto Leyva on 02-12-2024 Platelets (Bld) [#/Vol] 155 10*3/uL 150-450 [facility] Potassium [Moles/volume] in Serum or PlasmaOrdered By: Eriberto Leyva on 02-12-2024 Potassium [Moles/Vol] 4.1 mmol/L 3.5-5.1 [facility] Protein Test strip (U) [Mass /Vol]Ordered By: Eriberto Leyva on 02-12-2024 Protein (U) [Mass/Vol] Negative Negative [facility] Protein [Mass/volume] in Ser um or PlasmaOrdered By: Eriberto Leyva on 02-12-2024 Protein [Mass/Vol] 6.0 g/dL 6.4-8.9 [facility] RBC Auto (Bld) [#/Vol]Ordere d By: Eriberto Leyva on 02-12-2024 RBC (Bld) [#/Vol] 4.58 10*6/uL 3.90-5.60 [facility] Serum or plasma albumin/glob ulin mass ratioOrdered By: Eriberto Leyva on 02-12-2024 Albumin/Globulin [Mass ratio] 1.5 {ratio} [facility] Serum or plasma anion gap de terminationOrdered By: Eriberto Leyva on 02-12-2024 Anion gap [Moles/Vol] -1.6000 mmol/L 6.0-15.0 [facility] Sodium [Moles/volume] in Ser um or PlasmaOrdered By: Eriberto Leyva on 02-12-2024 Sodium [Moles/Vol] 138 mmol/L 136-145 [facility] Specific gravity Test strip (U) [Rel density]Ordered By: Eriberto Leyva on 02-12-2024 Specific gravity (U) [Rel density] 1.017 1.001-1.03 0 [facility] Thyrotropin [Units/volume] i n Serum or PlasmaOrdered By: Eriberto Leyva on 02-12-2024 TSH Qn 1.22 m[IU]/L 0.45-5.33 [facility] Troponin I.cardiac [Mass/vol ume] in Serum or Plasma by Detection limit <= 0.01 ng/Ordered By: Eriberto Leyva on 02-12-2024 Troponin I.cardiac DL <= 0.01 ng/mL [Mass/Vol] 7.6 pg/mL 0.0-20.0 [facility] Urea nitrogen [Mass/volume] in Serum or PlasmaOrdered By: Eriberto Leyva on 02-12-2024 Urea nitrogen [Mass/Vol] 30 mg/dL 7-25 [facility] Urine appearanceOrdered By: Eriberto Leyva on 02-12-2024 Appearance (U) Clear Clear [facility] Urobilinogen Test strip (U) [Mass/Vol]Ordered By: Eriberto Leyva on 02-12-2024 Urobilinogen (U) [Mass/Vol] Normal mg/dL Normal [facility] WBC Auto (Bld) [#/Vol]Ordere d By: Eriberto Leyva on 02-12-2024 WBC (Bld) [#/Vol] 10.0 10*3/uL 4.1-10.5 [facility] pH Test strip (U)Ordered By: Eriberto Leyva on 02-12-2024 pH (U) 6.0 [pH] 5.0-9.0 [facility] SURGICAL PATHOLOGY REFERENCE LAB CONSULTon 2023 CASE REPORT Normal [facility] Comment on above: Order Comment: Speci men Type: FORMALIN-FIXED PARAFFIN-EMBEDDED TISSUE SPECIMEN Ordering Facility: [facility] Address: [address] [place] [address] [place] [address] Result Comment: Surg ica Pathology Report Case: [id number] Authorizing Provider: Ivan Barnhart MD Collected: 2023 09:46 AM Ordering Location: [facility] Received: 2023 09:46 AM [facility] Pathologist: Olivier Mina MD Specimen: SLIDE(S), 2 SLIDES [id number] Performed By: #### L [id number] #### [facility] CLIA [id number] [address] [place] [address] [place] CLINICAL HISTORY CONSULT REQUESTED [facility] Comment on above: Order Comment: Speci men Type: FORMALIN-FIXED PARAFFIN-EMBEDDED TISSUE SPECIMEN Ordering Facility: [facility] Address: [address] [place], [place] [address] [address] Performed By: #### L [id number] #### [facility] CLIA [id number] [address] [place] [address] [place] DIAGNOSIS COMMENT Thank you for allowi ng me to review this bladder lesion from an 78-year-old man. 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 Normal [facility] Comment on above: Order Comment: Speci men Type: FORMALIN-FIXED PARAFFIN-EMBEDDED TISSUE SPECIMEN Ordering Facility: [facility] Address: [address] [place], [place] [address] [id number] Performed By: #### L [id number] #### [facility] CLIA [id number] [address] [place] [address] [place] FINAL DIAGNOSIS Normal [facility] Comment on above: Order Comment: Speci men Type: FORMALIN-FIXED PARAFFIN-EMBEDDED TISSUE SPECIMEN Ordering Facility: [facility] Address: [address] [place], [place] [address] [address] Result Comment: [facility]; [place], [place] ([id number], 09/14/23) A. Urinary bladder, biopsy: - Benign nephrogenic adenoma. JKM 2023 Performed By: #### L [id number] #### [facility] CLIA [id number] [address] [place] [address] [place] FINAL PERFORMING LAB Normal [facility] Comment on above: Order Comment: Speci men Type: FORMALIN-FIXED PARAFFIN-EMBEDDED TISSUE SPECIMEN Ordering Facility: [facility] Address: [address] [place] [address] Result Comment: Diag nostic interpretation performed at [facility], [address] [place] [address] CLIA# [id number] Cosmetic Manager: Jaylan Mcfadden M.D. Performed By: #### L [id number] #### [facility] CLIA [id number] [address] [place] [address] [place] ECG 12 Leadon 09-20-2023 Sinus bradycardia otherwise normal ECG [facility] Work Phone: Basophils Auto (Bld) [#/Vol] Ordered By: Antonia Grier on 05-30-2023 Basophils (Bld) [#/Vol] 0.0 10*3/uL 0.0-0.2 [facility] Basophils/100 WBC Auto (Bld) Ordered By: Antonia Grier on 05-30-2023 Basophils/100 WBC (Bld) 0.2 % . [facility] Calcium [Mass/volume] in Ser um or PlasmaOrdered By: Antonia Grier on 05-30-2023 Calcium [Mass/Vol] 8.6 mg/dL 8.6-10.3 [facility] Carbon dioxide, total [Moles /volume] in Serum or PlasmaOrdered By: Antonia Grier on 05-30-2023 CO2 [Moles/Vol] 30.6 mmol/L 21.0-31.0 [facility] Chloride [Moles/volume] in [place] or PlasmaOrdered By: Antonia Grier on 05-30-2023 Chloride [Moles/Vol] 104 mmol/L 98-107 [facility] Clostridioides difficile tox in B tcdB gene [Presence] in Stool by JAYDE with probe deteOrdered By: Silvestre Grover on 05-30-2023 C. difficile toxin B tcdB gene JAYDE+probe Ql (Stl) Negative Negative [facility] Comment on above: Testing performed by RT-PCR Creatinine [Mass/volume] in Serum or PlasmaOrdered By: Antonia Grier on 05-30-2023 Creatinine [Mass/Vol] 0.91 mg/dL 0.70-1.30 [facility] Eosinophils Auto (Bld) [#/Vo l]Ordered By: Antonia Grier on 05-30-2023 Eosinophils (Bld) [#/Vol] 0.2 10*3/uL 0.0-0.45 [facility] Eosinophils/100 WBC Auto (Bl d)Ordered By: Antonia Grier on 05-30-2023 Eosinophils/100 WBC (Bld) 3.8 % . [facility] Erythrocyte distribution wid th Auto (RBC) [Ratio]Ordered By: Antonia Grier on 05-30-2023 Erythrocyte distribution width (RBC) [Ratio] 18.1 % 12.0-14.8 [facility] Glucose [Mass/volume] in Ser um or PlasmaOrdered By: Antonia rGier on 05-30-2023 Glucose [Mass/Vol] 98 mg/dL 70-100 [facility] Comment on above: ADA recommended refe rence rangeRandom Glucose Reference Range is dependent on time and content of last meal. Glucose of more than 200 mg/dL in a nonstressed, ambulatory subject supports the diagnosis of Diabetes Mellitus. Hematocrit Auto (Bld) [Volum e fraction]Ordered By: Antonia Grier on 05-30-2023 Hematocrit (Bld) [Volume fraction] 36.5 % 38.8-50.0 [facility] Hemoglobin [Mass/volume] in BloodOrdered By: Antonia Grier on 05-30-2023 Hemoglobin (Bld) [Mass/Vol] 12.2 g/dL 13.0-17.0 [facility] Leukocytes [#/volume] correc blessing for nucleated erythrocytes in Blood by Automated counOrdered By: Antonia Grier on 05-30-2023 WBC corrected for nucl RBC Auto (Bld) [#/Vol] 5.6 10*3/uL 4.1-10.5 [facility] Lymphocytes Auto (Bld) [#/Vo l]Ordered By: Antonia Grier on 05-30-2023 Lymphocytes (Bld) [#/Vol] 1.7 10*3/uL 1.00-4.8 [facility] Lymphocytes/100 WBC Auto (Bl d)Ordered By: Antonia Grier on 05-30-2023 Lymphocytes/100 WBC (Bld) 29.7 % . [facility] MCH Auto (RBC) [Entitic mass ]Ordered By: Antonia Grier on 05-30-2023 MCH (RBC) [Entitic mass] 28.7 pg 27.5-35.2 [facility] MCHC Auto (RBC) [Mass/Vol]Or dered By: Antonia Grier on 05-30-2023 MCHC (RBC) [Mass/Vol] 33.4 g/dL 32.5-35.6 [facility] MCV Auto (RBC) [Entitic vol] Ordered By: Antonia Grier on 05-30-2023 MCV (RBC) [Entitic vol] 85.8 fL 83.5-101 [facility] Monocytes Auto (Bld) [#/Vol] Ordered By: Antonia Grier on 05-30-2023 Monocytes (Bld) [#/Vol] 0.8 10*3/uL 0.0-0.8 [facility] Monocytes/100 WBC Auto (Bld) Ordered By: Antonia Grier on 05-30-2023 Monocytes/100 WBC (Bld) 14.8 % . [facility] Neutrophils Auto (Bld) [#/Vo l]Ordered By: Antonia Grier on 05-30-2023 Neutrophils (Bld) [#/Vol] 2.9 10*3/uL 1.8-7.7 [facility] Neutrophils/100 WBC Auto (Bl d)Ordered By: Antonia Grier on 05-30-2023 Neutrophils/100 WBC (Bld) 51.5 % . [facility] No Panel InformationOrdered By: Antonia Grier on 05-30-2023 Estimated GFR (CKD-EPI) > 60.0 mL/Min [facility] Creatinine Clearance (Chem 89.45 [facility] Nucleated erythrocytes [Pres ence] in Blood by Automated countOrdered By: Antonia Grier on 05-30-2023 Nucleated RBC Auto Ql (Bld) 0.2 /100{WBC} 0-0.5 [facility] Platelet mean volume Auto (B ld) [Entitic vol]Ordered By: Antonia Grier on 05-30-2023 Platelet mean volume (Bld) [Entitic vol] 7.9 fL 6.6-10.1 [facility] Platelets Auto (Bld) [#/Vol] Ordered By: Antonia Grier on 05-30-2023 Platelets (Bld) [#/Vol] 258 10*3/uL 150-450 [facility] Potassium [Moles/volume] in Serum or PlasmaOrdered By: Antonia Grier on 05-30-2023 Potassium [Moles/Vol] 3.6 mmol/L 3.5-5.1 [facility] RBC Auto (Bld) [#/Vol]Ordere d By: Antonia Grier on 05-30-2023 RBC (Bld) [#/Vol] 4.25 10*6/uL 3.90-5.60 [facility] Serum or plasma anion gap de terminationOrdered By: Antonia Grier on 05-30-2023 Anion gap [Moles/Vol] 9.0 mmol/L 6.0-15.0 [facility] Sodium [Moles/volume] in Ser um or PlasmaOrdered By: Antonia Grier on 05-30-2023 Sodium [Moles/Vol] 140 mmol/L 136-145 [facility] Urea nitrogen [Mass/volume] in Serum or PlasmaOrdered By: Antonia Grier on 05-30-2023 Urea nitrogen [Mass/Vol] 19 mg/dL 7-25 [facility] WBC Auto (Bld) [#/Vol]Ordere d By: Antonia Grier on 05-30-2023 WBC (Bld) [#/Vol] 5.6 10*3/uL 4.1-10.5 [facility] Alanine aminotransferase [En zymatic activity/volume] in Serum or PlasmaOrdered By: Silvestre Grover on 05-22-2023 ALT [Catalytic activity/Vol] 30 U/L 7-52 [facility] Albumin [Mass/volume] in Ser um or Plasma by Bromocresol green (BCG) dye binding methoOrdered By: Silvestre Grover on 05-22-2023 Albumin BCG dye [Mass/Vol] 2.5 g/dL 3.5-5.7 [facility] Alkaline phosphatase [Enzyma tic activity/volume] in Serum or PlasmaOrdered By: Silvestre Grover on 05-22-2023 ALP [Catalytic activity/Vol] 69 U/L 34-104 [facility] Aspartate aminotransferase [ Enzymatic activity/volume] in Serum or PlasmaOrdered By: Silvestre Grover on 05-22-2023 AST [Catalytic activity/Vol] 34 U/L 13-39 [facility] Bilirubin.total [Mass/volume ] in Serum or PlasmaOrdered By: Silvestre Grover on 05-22-2023 Bilirubin [Mass/Vol] 0.6 mg/dL 0.3-1.0 [facility] Globulin Calc (S) [Mass/Vol] Ordered By: Silvestre Grover on 05-22-2023 Globulin (S) [Mass/Vol] 4.7 g/dL [facility] Prealbumin [Mass/volume] in Serum or PlasmaOrdered By: Silvestre Grover on 05-22-2023 Prealbumin [Mass/Vol] 11.9 mg/dL 17.0-34.0 [facility] Protein [Mass/volume] in Ser um or PlasmaOrdered By: Silvestre Grover on 05-22-2023 Protein [Mass/Vol] 7.2 g/dL 6.4-8.9 [facility] Serum or plasma albumin/glob ulin mass ratioOrdered By: Silvestre Grover on 05-22-2023 Albumin/Globulin [Mass ratio] 0.5 {ratio} [facility] Basophils Auto (Bld) [#/Vol] Ordered By: Donita Armstrong on 05-20-2023 Basophils (Bld) [#/Vol] 0.0 10*3/uL 0.0-0.2 [facility] Basophils/100 WBC Auto (Bld) Ordered By: Donita Patti on 05-20-2023 Basophils/100 WBC (Bld) 0.3 % . [facility] Calcium [Mass/volume] in Ser um or PlasmaOrdered By: Donita Patti on 05-20-2023 Calcium [Mass/Vol] 8.1 mg/dL 8.6-10.3 [facility] Carbon dioxide, total [Moles /volume] in Serum or PlasmaOrdered By: Donita Patti on 05-20-2023 CO2 [Moles/Vol] 33.6 mmol/L 21.0-31.0 [facility] Chloride [Moles/volume] in [place] or PlasmaOrdered By: Donita Patti on 05-20-2023 Chloride [Moles/Vol] 107 mmol/L 98-107 [facility] Creatinine [Mass/volume] in Serum or PlasmaOrdered By: Donita Armstrong on 05-20-2023 Creatinine [Mass/Vol] 0.96 mg/dL 0.70-1.30 [facility] Eosinophils Auto (Bld) [#/Vo l]Ordered By: Donita Patti on 05-20-2023 Eosinophils (Bld) [#/Vol] 0.6 10*3/uL 0.0-0.45 [facility] Eosinophils/100 WBC Auto (Bl d)Ordered By: Donita Armstrong on 05-20-2023 Eosinophils/100 WBC (Bld) 10.4 % . [facility] Erythrocyte distribution wid th Auto (RBC) [Ratio]Ordered By: Donita Armstrong on 05-20-2023 Erythrocyte distribution width (RBC) [Ratio] 17.8 % 12.0-14.8 [facility] Glucose [Mass/volume] in Ser um or PlasmaOrdered By: Donita Armstrong on 05-20-2023 Glucose [Mass/Vol] 94 mg/dL 70-100 [facility] Comment on above: ADA recommended refe rence rangeRandom Glucose Reference Range is dependent on time and content of last meal. Glucose of more than 200 mg/dL in a nonstressed, ambulatory subject supports the diagnosis of Diabetes Mellitus. Hematocrit Auto (Bld) [Volum e fraction]Ordered By: Donita Armstrong on 05-20-2023 Hematocrit (Bld) [Volume fraction] 36.9 % 38.8-50.0 [facility] Hemoglobin [Mass/volume] in BloodOrdered By: Donita Armstrong on 05-20-2023 Hemoglobin (Bld) [Mass/Vol] 12.0 g/dL 13.0-17.0 [facility] Leukocytes [#/volume] correc blessing for nucleated erythrocytes in Blood by Automated counOrdered By: Donita Armstrong on 05-20-2023 WBC corrected for nucl RBC Auto (Bld) [#/Vol] 6.0 10*3/uL 4.1-10.5 [facility] Lymphocytes Auto (Bld) [#/Vo l]Ordered By: Donita Armstrong on 05-20-2023 Lymphocytes (Bld) [#/Vol] 1.3 10*3/uL 1.00-4.8 [facility] Lymphocytes/100 WBC Auto (Bl d)Ordered By: Donita Armstrong on 05-20-2023 Lymphocytes/100 WBC (Bld) 22.4 % . [facility] MCH Auto (RBC) [Entitic mass ]Ordered By: Donita Armstrong on 05-20-2023 MCH (RBC) [Entitic mass] 27.9 pg 27.5-35.2 [facility] MCHC Auto (RBC) [Mass/Vol]Or dered By: Donita Armstrong on 05-20-2023 MCHC (RBC) [Mass/Vol] 32.6 g/dL 32.5-35.6 [facility] MCV Auto (RBC) [Entitic vol] Ordered By: Donita Patti on 05-20-2023 MCV (RBC) [Entitic vol] 85.6 fL 83.5-101 [facility] Monocytes Auto (Bld) [#/Vol] Ordered By: Donita Patti on 05-20-2023 Monocytes (Bld) [#/Vol] 0.5 10*3/uL 0.0-0.8 [facility] Monocytes/100 WBC Auto (Bld) Ordered By: Donita Patti on 05-20-2023 Monocytes/100 WBC (Bld) 8.4 % . [facility] Neutrophils Auto (Bld) [#/Vo l]Ordered By: Donita Armstrong on 05-20-2023 Neutrophils (Bld) [#/Vol] 3.5 10*3/uL 1.8-7.7 [facility] Neutrophils/100 WBC Auto (Bl d)Ordered By: Donita Patti on 05-20-2023 Neutrophils/100 WBC (Bld) 58.5 % . [facility] No Panel InformationOrdered By: Donita Armstrong on 05-20-2023 Estimated GFR (CKD-EPI) > 60.0 mL/Min [facility] Creatinine Clearance (Chem 87.95 [facility] Nucleated erythrocytes [Pres ence] in Blood by Automated countOrdered By: Donita Armstrong on 05-20-2023 Nucleated RBC Auto Ql (Bld) 0.4 /100{WBC} 0-0.5 [facility] Platelet mean volume Auto (B ld) [Entitic vol]Ordered By: Donita Armstrong on 05-20-2023 Platelet mean volume (Bld) [Entitic vol] 8.5 fL 6.6-10.1 [facility] Platelets Auto (Bld) [#/Vol] Ordered By: Donita Armstrong on 05-20-2023 Platelets (Bld) [#/Vol] 134 10*3/uL 150-450 [facility] Potassium [Moles/volume] in Serum or PlasmaOrdered By: Donita Patti on 05-20-2023 Potassium [Moles/Vol] 3.6 mmol/L 3.5-5.1 [facility] RBC Auto (Bld) [#/Vol]Ordere d By: Donita Patti on 05-20-2023 RBC (Bld) [#/Vol] 4.31 10*6/uL 3.90-5.60 [facility] Serum or plasma anion gap de terminationOrdered By: Donita Patti on 05-20-2023 Anion gap [Moles/Vol] 6.0 mmol/L 6.0-15.0 [facility] Sodium [Moles/volume] in Ser um or PlasmaOrdered By: Donita Patti on 05-20-2023 Sodium [Moles/Vol] 143 mmol/L 136-145 [facility] Urea nitrogen [Mass/volume] in Serum or PlasmaOrdered By: Donita Armstrong on 05-20-2023 Urea nitrogen [Mass/Vol] 26 mg/dL 7-25 [facility] WBC Auto (Bld) [#/Vol]Ordere d By: Donita Armstrong on 05-20-2023 WBC (Bld) [#/Vol] 6.0 10*3/uL 4.1-10.5 [facility] Clostridioides difficile tox in B tcdB gene [Presence] in Stool by JAYDE with probe deteOrdered By: Suraj Razo on 05-19-2023 C. difficile toxin B tcdB gene JAYDE+probe Ql (Stl) Negative Negative [facility] Comment on above: Testing performed by RT-PCR Magnesium [Mass/volume] in S [place] or PlasmaOrdered By: Suraj Razo on 05-19-2023 Magnesium [Mass/Vol] 2.0 mg/dL 1.9-2.7 [facility] Glucose Glucometer (BldC) [M ass/Vol]Ordered By: Suraj Razo on 05-17-2023 Glucose [Mass/Vol] 107 mg/dL [facility] Comment on above: Random Glucose Refer ence Range is dependent on time and content of last meal. Glucose of more than 200 mg/dL in a nonstressed, ambulatory subject supports the diagnosis of Diabetes Mellitus. Automated erythrocytes count in urine sediment (number/area)Ordered By: Donita Armstrong on 05-16-2023 RBC Auto (Urine sed) [#/Area] 1-2 [HPF] 0-4 [facility] Automated leukocytes count i n urine sediment (number/area)Ordered By: Donita Armstrong on 05-16-2023 WBC Auto (Urine sed) [#/Area] 1-2 [HPF] 0-4 [facility] Automated urine sediment nabila cium oxalate crystal count by microscopy (number/high powOrdered By: Donita Armstrong on 05-16-2023 Calcium oxalate crystals LM.HPF (Urine sed) [#/Area] 1+ [HPF] [facility] Bacterial blood cultureOrder ed By: Donita Armstrong on 05-16-2023 Bacteria identified Cx Nom (Bld) NO GROWTH 5 DAYS [facility] Bacteria identified Cx Nom (Bld) Staphylococcus sp coag neg [facility] Bilirubin Test strip Ql (U)O rdered By: Donita Armstrong on 05-16-2023 Bilirubin Ql (U) Negative Negative [facility] Color Auto (U)Ordered By: Joaquin Armstrong on 05-16-2023 Color (U) Yellow Yellow [facility] Creatine kinase [Enzymatic a ctivity/volume] in Serum or PlasmaOrdered By: Jamel Packer on 05-16-2023 CK [Catalytic activity/Vol] 175 U/L 30-223 [facility] Ketones Auto test strip (U) [Mass/Vol]Ordered By: Donita Armstrong on 05-16-2023 Ketones (U) [Mass/Vol] Negative Negative [facility] - UrinalysisOrder ed By: Donita Armstrong on 05-16-2023 Hyaline casts LM Ql (Urine sed) 9-19 [LPF] 0-8 [facility] Nitrite Test strip Ql (U)Ord ered By: Donita Armstrong on 05-16-2023 Nitrite Ql (U) Negative Negative [facility] No Panel InformationOrdered By: Suraj Razo on 05-16-2023 Bedside Glucose Comment Glu2: cleaned meter [facility] No Panel InformationOrdered By: Donita Armstrong on 05-16-2023 Bacterial ID (NA Multiplex Assay) [facility] Protein Auto test strip (U) [Mass/Vol]Ordered By: Donita Armstrong on 05-16-2023 Protein (U) [Mass/Vol] 30 mg/dL Negative [facility] Specific gravity Auto test s trip (U) [Rel density]Ordered By: Donita Armstrong on 05-16-2023 Specific gravity (U) [Rel density] 1.026 1.001-1.03 0 [facility] Squamous epithelial cells de tection in urine sediment by light microscopyOrdered By: Doniat Armstrong on 05-16-2023 Epithelial cells.squamous LM Ql (Urine sed) 0-1 [HPF] 0-2 [facility] Thyrotropin [Units/volume] i n Serum or PlasmaOrdered By: Donita Armstrong on 05-16-2023 TSH Qn 1.50 m[IU]/L 0.45-5.33 [facility] Troponin I.cardiac [Mass/vol ume] in Serum or Plasma by Detection limit <= 0.01 ng/Ordered By: Donita Armstrong on 05-16-2023 Troponin I.cardiac DL <= 0.01 ng/mL [Mass/Vol] 33.0 pg/mL 0.0-20.0 [facility] Urine bacteria detection by automated methodOrdered By: Donita Armstrong on 05-16-2023 Bacteria Auto Ql (U) None seen None Seen [facility] Urine clarity by refractomet ry automatedOrdered By: Donita Armstrong on 05-16-2023 Clarity Refractometry automated (U) Clear Clear [facility] Urine culture routineOrdered By: Donita Armstrong on 05-16-2023 Bacteria identified Cx Nom (U) No Growth 2 Days [facility] Urine glucose measurement by automated test strip (mass/volume)Ordered By: Donita Armstrong on 05-16-2023 Glucose Auto test strip (U) [Mass/Vol] Normal mg/dL Normal [facility] Urine hemoglobin detection b y automated test stripOrdered By: Donita Armstrong on 05-16-2023 Hemoglobin Auto test strip Ql (U) Negative Negative [facility] Urine leukocyte esterase det ection by automated test stripOrdered By: Donita Armstrong on 05-16-2023 Leukocyte esterase Auto test strip Ql (U) 1+ Negative [facility] Urobilinogen Auto test strip (U) [Mass/Vol]Ordered By: Donita Armstrong on 05-16-2023 Urobilinogen (U) [Mass/Vol] Normal mg/dL Normal [facility] Yeast detection in urine sed iment by light microscopyOrdered By: Donita Armstrong on 05-16-2023 Yeast LM Ql (Urine sed) None seen [HPF] None Seen [facility] pH Auto test strip (U)Ordere d By: Donita Armstrong on 05-16-2023 pH (U) 5.5 [pH] 5.0-9.0 [facility] Laboratory - Chemistry and C hemistry - challengeOrdered By: Eliezer Newell on 05-15-2023 CO2 [Moles/Vol] 36.3 mmol/L 23.0-27.0 [facility] HCO3 (Bld) [Moles/Vol] 34.8 mmol/L 23.0-29.0 [facility] No Panel InformationOrdered By: Eliezer Newell on 05-15-2023 Arterial Blood Base Excess 9.2 mmol/L -3.0-3.0 [facility] Arterial Blood Oxygen Content 7.9 mmol/L 6.6-9.7 [facility] Arterial Blood Oxygen Saturation 92.2 % 95.0-100.0 [facility] Arterial Blood Partial Pressure CO2 50.8 mm[Hg] 35.0-45.0 [facility] Arterial Blood Partial Pressure O2 60.0 mm[Hg] 80.0-100.0 [facility] Arterial Blood pH 7.45 7.35-7.45 [facility] Blood Gas Critical Value See comment [facility] Comment on above: Critical Value humphries d on: 05/15/2023 at 05:57 Blood Gas PEEP 5 cmH2O [facility] Blood Gas Sample Site Right radial F [facility] Blood Gas Set Respiration Rate 10 [facility] Blood Gas Tidal Volume 500 mL Fi [facility] Blood Gas Ventilator Mode Ac [facility] FiO2 35 % [facility] Triglyceride [Mass/volume] i n Serum or PlasmaOrdered By: Lexy Chappell on 05-15-2023 Triglyceride [Mass/Vol] 224 mg/dL 35-149 [facility] Comment on above: TRIG ATP III CLASSIF ICATIONTRIG less than 150 mg/dL NormalTRIG 150-199 mg/dL Borderline highTRIG 200-500 mg/dL High TRIG greater than 500 mg/dL Very highStandard traceable to the Center for Disease Conrtrol and Prevention (CDC) test method. No Panel InformationOrdered By: Eliezer Newell on 05-13-2023 Arterial Blood pCO2 (Temp correct) 53.2 mm[Hg] 35.0-45.0 [facility] Arterial Blood pH (Temp corrected) 7.36 7.35-7.45 [facility] Arterial Blood pO2 (Temp corrected) 77.8 mm[Hg] 80.0-100.0 [facility] Aerobic cultureOrdered By: Valdemar Armstrong on 05-12-2023 Bacteria identified Aer cx Nom (Unsp spec) 2 Days [facility] Basophils/100 WBC Manual cnt (Bld)Ordered By: Stanley Burt on 05-12-2023 Basophils/100 WBC (Bld) 0 % 0-2 [facility] Eosinophils/100 WBC Manual c nt (Bld)Ordered By: Stanley Burt on 05-12-2023 Eosinophils/100 WBC (Bld) 6 % 1-3 [facility] Gram stain for investigation of transfusion reactionOrdered By: Donita Armstrong on 05-12-2023 Microscopic observation Gram stain Nom (Unsp spec) [facility] Haptoglobin [Mass/volume] in Serum or PlasmaOrdered By: Stanley Burt on 05-12-2023 Haptoglobin [Mass/Vol] 93 mg/dL 44-215 [facility] Comment on above: Hemolysis is present at a level that could interfere with the result. Lymphocytes/100 WBC Manual c nt (Bld)Ordered By: Stanley Burt on 05-12-2023 Lymphocytes/100 WBC (Bld) 5 % 18-42 [facility] Monocytes/100 WBC Manual cnt (Bld)Ordered By: Stanley Burt on 05-12-2023 Monocytes/100 WBC (Bld) 1 % 2-11 [facility] No Panel InformationOrdered By: Stanley Burt on 05-12-2023 Slides for Pathologist Review Ordered path review [facility] Platelet adequacy [Presence] in Blood by Light microscopyOrdered By: Stanley Burt on 05-12-2023 Platelets LM Ql (Bld) Decreased Normal [facility] Platelet morphology finding [Identifier] in BloodOrdered By: Stanley Burt on 05-12-2023 Platelet morphology finding Nom (Bld) Normal Normal [facility] Polychromasia [Presence] in Blood by Light microscopyOrdered By: Stanley Burt on 05-12-2023 Polychromasia LM Ql (Bld) Slight [facility] RBC morphologyOrdered By: Farhan Burt on 05-12-2023 RBC morphology finding Nom (Bld) N/A [facility] Segmented neutrophils/100 WB C Manual cnt (Bld)Ordered By: Stanley Burt on 05-12-2023 Segmented neutrophils/100 WBC (Bld) 88 % 50-70 [facility] Teardrop cell detectionOrder ed By: Stanley Burt on 05-12-2023 Dacrocytes LM Ql (Bld) Slight [facility] Alanine aminotransferase [En zymatic activity/volume] in Serum or PlasmaOrdered By: Jarret Garza on 05-11-2023 ALT [Catalytic activity/Vol] 23 U/L 7-52 [facility] Albumin [Mass/volume] in Ser um or Plasma by Bromocresol green (BCG) dye binding methoOrdered By: Jarret Garza on 05-11-2023 Albumin BCG dye [Mass/Vol] 3.1 g/dL 3.5-5.7 [facility] Alkaline phosphatase [Enzyma tic activity/volume] in Serum or PlasmaOrdered By: Jarret Garza on 05-11-2023 ALP [Catalytic activity/Vol] 55 U/L 34-104 [facility] Aspartate aminotransferase [ Enzymatic activity/volume] in Serum or PlasmaOrdered By: Jarret Garza on 05-11-2023 AST [Catalytic activity/Vol] 28 U/L 13-39 [facility] Bilirubin.total [Mass/volume ] in Serum or PlasmaOrdered By: Jarret Garza on 05-11-2023 Bilirubin [Mass/Vol] 0.9 mg/dL 0.3-1.0 [facility] Globulin Calc (S) [Mass/Vol] Ordered By: Jarret Garza on 05-11-2023 Globulin (S) [Mass/Vol] 2.7 g/dL [facility] INR in Platelet poor plasma by Coagulation assayOrdered By: Jarret Garza on 05-11-2023 INR Coag (PPP) [Relative time] 1.4 {INR} [facility] Comment on above: INR Therapeutic Rang [...] on 05-11-2023 Phosphate [Mass/Vol] 2.7 mg/dL 3.7-7.2 [facility] Protein [Mass/volume] in Ser um or PlasmaOrdered By: Jarret Garza on 05-11-2023 Protein [Mass/Vol] 5.8 g/dL 6.4-8.9 [facility] Prothrombin time (PT)Ordered By: Jarret Garza on 05-11-2023 PT Coag (PPP) [Time] 17.1 s 9.0-12.9 [facility] Comment on above: A hematocrit value g reater than 55% may lead to inaccurate results in coagulation testing. Patients having hematocrit values >55% require a special collection tube for coagulation studies. Please contact the laboratory at [phone] for redraw instructions. Serum or plasma albumin/glob ulin mass ratioOrdered By: Jarret Garza on 05-11-2023 Albumin/Globulin [Mass ratio] 1.1 {ratio} [facility] Basic Metabolic Panelon - Anion gap [Moles/Vol] 15 mmol/L 9 - 17 mmol/L SuppreMol Calcium [Mass/Vol] 8.3 mg/dL Low 8.6 - 10. 4 mg/dL [facility] Chloride [Moles/Vol] 102 mmol/L 98 - 10 7 mmol/L SuppreM[facility] CO2 [Moles/Vol] 23 mmol/L 20 - 31 mmol/L [facility] Creatinine [Mass/Vol] 1.17 mg/dL 0.70 - 1.20 mg/dL SuppreM[facility] GFR/1.73 sq M.predicted MDRD (S/P/Bld) [Vol rate/Area] - PINF [facility] Comment on above: These results are not [...] [Mass/Vol] 91 mg/dL 70 - 99 mg/dL [facility] Interpretation and review of laboratory results Abnormal [facility] Potassium [Moles/Vol] 3.2 mmol/L Low 3.7 - 5.3 mmol/L [facility] Sodium [Moles/Vol] 140 mmol/L 135 - 144 mmol/L [facility] Urea nitrogen [Mass/Vol] 17 mg/dL 8 - 23 mg/dL [facility] Basic Metabolic Profon 10-18 Anion gap [Moles/Vol] 15 mmol/L Normal 9-17 [facility] Comment on above: Performed By: #### Marcial Young, CBC, BMP #### [facility] [address] [place] [address] [employer]: Wenceslao Rose MD Calcium [Mass/Vol] 8.3 mg/dL Low 8.6-10.4 [facility] Comment on above: Performed By: #### Marcial Young, CBC, BMP #### [facility] [address] [place] [address] [employer]: Wenceslao Rose MD Chloride [Moles/Vol] 102 mmol/L Normal 98-107 [facility] Comment on above: Performed By: #### Marcial Young, CBC, BMP #### [facility] [address] [place] [address] [employer]: Wencesloa Rose MD CO2 [Moles/Vol] 23 mmol/L Normal 20-31 [facility] Comment on above: Performed By: #### Marcial G, CBC, BMP #### [facility] [address] [place] [address] [employer]: Wenceslao Rose MD Creatinine [Mass/Vol] 1.17 mg/dL Normal 0.70-1.20 [facility] Comment on above: Performed By: #### M Hannah, CBC, BMP #### [facility] [address] [place] [address] [employer]: Wenceslao Rose MD GFR/1.73 sq M.predicted among non-blacks MDRD (S/P/Bld) [Vol rate/Area] mL/min/{1.73_m2} Normal >60 [facility] Comment on above: Result Comment: These results [...] By: #### M Hannah, CBC, BMP #### [facility] [address] [place] [address] [employer]: Wenceslao Rose MD Glucose [Mass/Vol] 91 mg/dL Normal 70-99 [facility] Comment on above: Performed By: #### Marcial Young, CBC, BMP #### [facility] [address] [place] [address] [employer]: Wenceslao Rose MD Potassium [Moles/Vol] 3.2 mmol/L Low 3.7-5.3 [facility] Comment on above: Performed By: #### M G, CBC, BMP #### [facility] [address] [place] [address] [employer]: Wenceslao Rose MD Sodium [Moles/Vol] 140 mmol/L Normal 135-144 [facility] Comment on above: Performed By: #### M G, CBC, BMP #### [facility] [address] [place] [address] [employer]: Wenceslao Rose MD Urea nitrogen [Mass/Vol] 17 mg/dL Normal 8-23 [facility] Comment on above: Performed By: #### M G, CBC, BMP #### [facility] [address] [place] [address] [employer]: Wenceslao Rose MD CBCon 10-18-2022 Erythrocyte distribution width (RBC) [Ratio] 21.9 % High 11.8-14.4 [facility] Comment on above: Performed By: #### M G, CBC, BMP #### [facility] [address] [place] [address] [employer]: Wenceslao Rose MD Hematocrit (Bld) [Volume fraction] 35.2 % Low 40.7-50.3 [facility] Comment on above: Performed By: #### Marcial G, CBC, BMP #### [facility] [address] [place] [phone] [employer]: Wenceslao Rose MD Hemoglobin (Bld) [Mass/Vol] 10.2 g/dL Low 13.0-17.0 [facility] Comment on above: Performed By: #### M Hannah, CBC, BMP #### [facility] [address] [place] [address] [employer]: Wenceslao Rose MD MCH (RBC) [Entitic mass] 22.3 pg Low 25.2-33.5 [facility] Comment on above: Performed By: #### M G, CBC, BMP #### [facility] [address] [place] [address] [employer]: Wenceslao Rose MD MCHC (RBC) [Mass/Vol] 29.0 g/dL Normal 28.4-34.8 [facility] Comment on above: Performed By: #### M G, CBC, BMP #### [facility] [address] [place] [address] [employer]: Wenceslao Rose MD MCV (RBC) [Entitic vol] 76.9 fL Low 82.6-102.9 [facility] Comment on above: Performed By: #### M Hannah, CBC, BMP #### [address] [address] [employer]: Wenceslao Rose MD NRBC Automated 0.0 per 100 WBC Normal 0.0 [facility] Comment on above: Performed By: #### Marcial Young, CBC, BMP #### [place] [address] [employer]: Wenceslao Rose MD Platelet mean volume (Bld) [Entitic vol] 10.1 fL Normal 8.1-13.5 [facility] Comment on above: Performed By: #### Marcial Young, CBC, BMP #### [place] [address] [employer]: Wenceslao Rose MD Platelets (Bld) [#/Vol] 198 10*3/uL Normal 138-453 [facility] Comment on above: Performed By: #### Marcial Young, CBC, BMP #### [place] [address] [employer]: Wenceslao Rose MD RBC (Bld) [#/Vol] 4.58 10*6/uL Normal 4.21-5.77 [facility] Comment on above: Performed By: #### Marcial Young, CBC, BMP #### [address] [address] [employer]: Wenceslao Rose MD WBC (Bld) [#/Vol] 6.2 10*3/uL Normal 3.5-11.3 [facility] Comment on above: Performed By: #### M G, CBC, BMP #### [address] [address] [employer]: Wenecslao Rose MD Hematocrit (Bld) [Volume fraction] 35.2 % Low 40.7 - 50.3 % [facility] Hemoglobin (Bld) [Mass/Vol] 10.2 g/dL Low 13.0 - 17.0 g/dL [facility] Interpretation and review of laboratory results Abnormal [facility] MCH (RBC) [Entitic mass] 22.3 pg Low 25.2 - 33.5 pg [facility] MCHC (RBC) [Mass/Vol] 29.0 g/dL 28.4 - 34.8 g/dL [facility] MCV (RBC) [Entitic vol] 76.9 fL Low 82.6 - 102.9 fL [facility] NRBC Automated 0.0 0.0 per 100 WBC [facility] Platelet distribution width (Bld) [Ratio] 21.9 % High 11.8 - 14.4 % [facility] Platelet mean volume (Bld) [Entitic vol] 10.1 fL 8.1 - 13.5 fL [facility] Platelets (Bld) [#/Vol] 198 10*3/uL [facility] RBC (Bld) [#/Vol] 4.58 10*6/uL 4.21 - 5.77 m/uL [facility] WBC (Bld) [#/Vol] 6.2 10*3/uL [facility] Magnesiumon 10-18-2022 Magnesium [Mass/Vol] 2.0 mg/dL Normal 1.6-2.6 [facility] Comment on above: Performed By: #### M G, CBC, BMP #### [facility] [address] [place] [address] [employer]: Wenceslao Rose MD Magnesium [Mass/Vol] 2.0 mg/dL 1.6 - 2 .6 mg/dL [facility] Basic Metabolic Panelon 09-22 Anion gap [Moles/Vol] 15 mmol/L 9 - 17 mmol/L [facility] Calcium [Mass/Vol] 8.8 mg/dL 8.6 - 10. 4 mg/dL [facility] Chloride [Moles/Vol] 102 mmol/L 98 - 10 7 mmol/L [facility] CO2 [Moles/Vol] 22 mmol/L 20 - 31 mmol/L [facility] Creatinine [Mass/Vol] 1.09 mg/dL 0.70 - 1.20 mg/dL [facility] GFR/1.73 sq M.predicted MDRD (S/P/Bld) [Vol rate/Area] - PINF [facility] Comment on above: These results are [...] [Mass/Vol] 98 mg/dL 70 - 99 mg/dL [facility] Interpretation and review of laboratory results Abnormal [facility] Potassium [Moles/Vol] 3.6 mmol/L Low 3.7 - 5.3 mmol/L [facility] Sodium [Moles/Vol] 139 mmol/L 135 - 144 mmol/L [facility] Urea nitrogen [Mass/Vol] 19 mg/dL 8 - 23 mg/dL [facility] Basic Metabolic Profon 10-17 Anion gap [Moles/Vol] 15 mmol/L Normal 9-17 [facility] Comment on above: Performed By: #### B MP, CBC #### [facility] [place] [address] [employer]: Wenceslao Rose MD Calcium [Mass/Vol] 8.8 mg/dL Normal 8.6-10.4 [facility] Comment on above: Performed By: #### B MP, CBC #### [facility] [address] [place], [place] [id number] [employer]: Wenceslao Rose MD Chloride [Moles/Vol] 102 mmol/L Normal 98-107 [facility] Comment on above: Performed By: #### B MP, CBC #### [facility] [address] [place] [address] [employer]: Wenceslao Rose MD CO2 [Moles/Vol] 22 mmol/L Normal 20-31 [facility] Comment on above: Performed By: #### B MP, CBC #### [address] [address] [employer]: Wenceslao Rose MD Creatinine [Mass/Vol] 1.09 mg/dL Normal 0.70-1.20 [facility] Comment on above: Performed By: #### B SUZANNE, CBC #### [facility] [address] [place] [address] [employer]: Wenceslao Rose MD GFR/1.73 sq M.predicted among non-blacks MDRD (S/P/Bld) [Vol rate/Area] mL/min/{1.73_m2} Normal >60 [facility] Comment on above: Result Comment: These results [...] renal tubular secretion. Performed By: #### B SUZANNE, CBC #### [address] [address] [employer]: Wenceslao Rose MD Glucose [Mass/Vol] 98 mg/dL Normal 70-99 [facility] Comment on above: Performed By: #### B MP, CBC #### [facility] [address] [place] [address] [employer]: Wenceslao Rose MD Potassium [Moles/Vol] 3.6 mmol/L Low 3.7-5.3 [facility] Comment on above: Performed By: #### B SUZANNE, CBC #### [facility] [address] [place] [address] [employer]: Wenceslao Rose MD Sodium [Moles/Vol] 139 mmol/L Normal 135-144 [facility] Comment on above: Performed By: #### B MP, CBC #### [facility] [address] [place] [address] [employer]: Wenceslao Rose MD Urea nitrogen [Mass/Vol] 19 mg/dL Normal 8-23 [facility] Comment on above: Performed By: #### B MP, CBC #### [facility] [address] [place] [address] [employer]: Wenceslao Rose MD CBCon 10-17-2022 Erythrocyte distribution width (RBC) [Ratio] 22.3 % High 11.8-14.4 [facility] Comment on above: Performed By: #### B MP, CBC #### [facility] [address] [place] [address] [employer]: Wenceslao Rose MD Hematocrit (Bld) [Volume fraction] 36.9 % Low 40.7-50.3 [facility] Comment on above: Performed By: #### B MP, CBC #### [facility] [address] [place] [address] [employer]: Wenceslao Rose MD Hemoglobin (Bld) [Mass/Vol] 10.5 g/dL Low 13.0-17.0 [facility] Comment on above: Performed By: #### B MP, CBC #### [facility] [address] [place] [address] [employer]: Wenceslao Rose MD MCH (RBC) [Entitic mass] 22.2 pg Low 25.2-33.5 [facility] Comment on above: Performed By: #### B MP, CBC #### [facility] [address] [place] [address] [employer]: Wenceslao Rose MD MCHC (RBC) [Mass/Vol] 28.5 g/dL Normal 28.4-34.8 [facility] Comment on above: Performed By: #### B MP, CBC #### [address] [address] [employer]: Wenceslao Rose MD MCV (RBC) [Entitic vol] 78.0 fL Low 82.6-102.9 [facility] Comment on above: Performed By: #### B MP, CBC #### [address] [address] [employer]: Wenceslao Rose MD NRBC Automated 0.0 per 100 WBC Normal 0.0 [facility] Comment on above: Performed By: #### B MP, CBC #### [address] [address] [employer]: Wenceslao Rose MD Platelet mean volume (Bld) [Entitic vol] 10.3 fL Normal 8.1-13.5 [facility] Comment on above: Performed By: #### B MP, CBC #### [address] [address] [employer]: Wenceslao Rose MD Platelets (Bld) [#/Vol] 185 10*3/uL Normal 138-453 [facility] Comment on above: Performed By: #### B MP, CBC #### [address] [address] [employer]: Wenceslao Rose MD RBC (Bld) [#/Vol] 4.73 10*6/uL Normal 4.21-5.77 [facility] Comment on above: Performed By: #### B MP, CBC #### [address] [address] [employer]: Wenceslao Rose MD WBC (Bld) [#/Vol] 6.6 10*3/uL Normal 3.5-11.3 [facility] Comment on above: Performed By: #### B MP, CBC #### [facility] [address] [place], [place] [id number] [employer]: Wenceslao Rose MD Hematocrit (Bld) [Volume fraction] 36.9 % Low 40.7 - 50.3 % [facility] Hemoglobin (Bld) [Mass/Vol] 10.5 g/dL Low 13.0 - 17.0 g/dL [facility] Interpretation and review of laboratory results Abnormal [facility] MCH (RBC) [Entitic mass] 22.2 pg Low 25.2 - 33.5 pg [facility] MCHC (RBC) [Mass/Vol] 28.5 g/dL 28.4 - 34.8 g/dL [facility] MCV (RBC) [Entitic vol] 78.0 fL Low 82.6 - 102.9 fL [facility] NRBC Automated 0.0 0.0 per 100 WBC [facility] Platelet distribution width (Bld) [Ratio] 22.3 % High 11.8 - 14.4 % [facility] Platelet mean volume (Bld) [Entitic vol] 10.3 fL 8.1 - 13.5 fL [facility] Platelets (Bld) [#/Vol] 185 10*3/uL [facility] RBC (Bld) [#/Vol] 4.73 10*6/uL 4.21 - 5.77 m/uL [facility] WBC (Bld) [#/Vol] 6.6 10*3/uL [facility] Cult,Urineon 10-17-2022 Cult,Urine Specimen Description .CLEAN CATCH URINE Culture NO GROWTH Report Status FINAL 10/17/2022 Normal [facility] Comment on above: Performed By: #### U RC #### [facility] [address] [place], [place] [phone] [employer]: Wenceslao Rose MD Culture, Urineon 10-17-2022 Microorganism identified Cx Nom (Unsp spec) NO GROWTH [facility] Specimen Description .CLEAN CATCH URINE [facility] Basic Metab w/rfx MGon 10-16 Anion gap [Moles/Vol] 11 mmol/L Normal 9-17 [facility] Comment on above: Performed By: #### P RCAL, BMPX, CRP, PT #### [facility] [address] [place] [address] [employer]: Wenceslao Rose MD Calcium [Mass/Vol] 8.1 mg/dL Low 8.6-10.4 [facility] Comment on above: Performed By: #### P RCAL, BMPX, CRP, PT #### [facility] [address] [place] [address] [employer]: Wenceslao Rose MD Chloride [Moles/Vol] 104 mmol/L Normal 98-107 [facility] Comment on above: Performed By: #### P RCAL, BMPX, CRP, PT #### [facility] [address] [place] [address] [employer]: Wenceslao Rose MD CO2 [Moles/Vol] 23 mmol/L Normal 20-31 [facility] Comment on above: Performed By: #### P RCAL, BMPX, CRP, PT #### [facility] [address] [place] [address] [employer]: Wenceslao Rose MD Creatinine [Mass/Vol] 1.13 mg/dL Normal 0.70-1.20 [facility] Comment on above: Performed By: #### P RCAL, BMPX, CRP, PT #### [facility] [address] [place] [address] [employer]: Wenceslao Rose MD GFR/1.73 sq M.predicted among non-blacks MDRD (S/P/Bld) [Vol rate/Area] mL/min/{1.73_m2} Normal >60 [facility] Comment on above: Result Comment: These results [...] #### P RCAL, BMPX, CRP, PT #### [facility] [employer] [address] [place] [address] [employer]: Wenceslao Rose MD Glucose [Mass/Vol] 95 mg/dL Normal 70-99 [facility] Comment on above: Performed By: #### P RCAL, BMPX, CRP, PT #### [address] [address] [employer]: Wenceslao Rose MD Potassium [Moles/Vol] 3.6 mmol/L Low 3.7-5.3 [facility] Comment on above: Performed By: #### P RCAL, BMPX, CRP, PT #### [facility] [employer] [address] [place] [address] [employer]: Wenceslao Rose MD Sodium [Moles/Vol] 138 mmol/L Normal 135-144 [facility] Comment on above: Performed By: #### P RCAL, BMPX, CRP, PT #### [facility] [address] [place] [address] [employer]: Wenceslao Rose MD Urea nitrogen [Mass/Vol] 16 mg/dL Normal 8-23 [facility] Comment on above: Performed By: #### P RCAL, BMPX, CRP, PT #### [facility] [employer] [address] [place] [address] [employer]: Wenceslao Rose MD Basic Metabolic Panel w/ Ref mitchel to MGon 10-16-2022 Anion gap [Moles/Vol] 11 mmol/L 9 - 17 mmol/L [facility] Calcium [Mass/Vol] 8.1 mg/dL Low 8.6 - 10. 4 mg/dL [facility] Chloride [Moles/Vol] 104 mmol/L 98 - 10 7 mmol/L [facility] CO2 [Moles/Vol] 23 mmol/L 20 - 31 mmol/L [facility] Creatinine [Mass/Vol] 1.13 mg/dL 0.70 - 1.20 mg/dL [facility] GFR/1.73 sq M.predicted MDRD (S/P/Bld) [Vol rate/Area] - PINF [facility] Comment on above: These results are [...] [Mass/Vol] 95 mg/dL 70 - 99 mg/dL [facility] Interpretation and review of laboratory results Abnormal [facility] Potassium [Moles/Vol] 3.6 mmol/L Low 3.7 - 5.3 mmol/L [facility] Sodium [Moles/Vol] 138 mmol/L 135 - 144 mmol/L [facility] Urea nitrogen [Mass/Vol] 16 mg/dL 8 - 23 mg/dL [facility] C-Reactive Proteinon 2 023 CRP [Mass/Vol] 86.3 mg/L High 0.0-5.0 [facility] Comment on above: Performed By: #### M G, CBC, BMP #### [facility] [facility] [place] [address] [employer]: Wenceslao Rose MD CRP High sensitivity method [Mass/Vol] 86.3 mg/L High 0.0 - 5.0 mg/L [facility] Interpretation and review of laboratory results Abnormal [facility] CBC with Auto Differentialon 10-16-2022 Absolute Eos # 0.13 [facility] Absolute Immature Granulocyte 0.00 [facility] Absolute Lymph # 0.82 Low [facility] Absolute Delta # 0.88 High [facility] Basophils (Bld) [#/Vol] 0.00 10*3/uL [facility] Basophils/100 WBC (Bld) 0 % 0 - 2 % [facility] Eosinophils/100 WBC (Bld) 2 % 1 - 4 % [facility] Hematocrit (Bld) [Volume fraction] 33.5 % Low 40.7 - 50.3 % [facility] Hemoglobin (Bld) [Mass/Vol] 10.2 g/dL Low 13.0 - 17.0 g/dL [facility] Immature granulocytes/100 WBC (Bld) 0 % 0 [facility] Interpretation and review of laboratory results Abnormal [facility] Lymphocytes/100 WBC (Bld) 13 % Low 24 - 44 % [facility] MCH (RBC) [Entitic mass] 22.5 pg Low 25.2 - 33.5 pg [facility] MCHC (RBC) [Mass/Vol] 30.4 g/dL 28.4 - 34.8 g/dL [facility] MCV (RBC) [Entitic vol] 73.8 fL Low 82.6 - 102.9 fL [facility] Monocytes/100 WBC (Bld) 14 % High 1 - 7 % [facility] Morphology Ck (Bld) [Interp] ANISOCYTOSIS PRESENT [facility] Morphology Ck (Bld) [Interp] MICROCYTOSIS PRESENT [facility] NRBC Automated 0.0 0.0 per 100 WBC [facility] Platelet distribution width (Bld) [Ratio] 22.2 % High 11.8 - 14.4 % [facility] Platelets (Bld) [#/Vol] See Reflexed IPF Result [facility] RBC (Bld) [#/Vol] 4.54 10*6/uL 4.21 - 5.77 m/uL [facility] Segmented neutrophils/100 WBC (Bld) 71 % High 36 - 66 % [facility] Segs Absolute 4.47 [facility] WBC (Bld) [#/Vol] 6.3 10*3/uL [facility] CBC with Diffon 10-16-2022 Abs. Basophil 0.00 k/uL Normal 0.0-0.2 [facility] Comment on above: Performed By: #### C DP, IPF #### [facility] [address] [place] [address] [employer]: Wenceslao Rose MD Abs.Imm.Granulocyte 0.00 k/uL Normal 0.00-0.30 [facility] Comment on above: Performed By: #### C DP, IPF #### [address] [address] [employer]: Wenceslao Rose MD Abs.Neutrophil (Seg) 4.47 k/uL Normal 1.8-7.7 [facility] Comment on above: Performed By: #### C DP, IPF #### [address] [address] [employer]: Wenceslao Rose MD Basophils/100 WBC (Bld) 0 % Normal 0-2 [facility] Comment on above: Performed By: #### C DP, IPF #### [address] [address] [employer]: Wenceslao Rose MD Eosinophils (Bld) [#/Vol] 0.13 10*3/uL Normal 0.0-0.4 [facility] Comment on above: Performed By: #### C DP, IPF #### [facility] [address] [place] [address] [employer]: Wenceslao Rose MD Eosinophils/100 WBC (Bld) 2 % Normal 1-4 [facility] Comment on above: Performed By: #### C DP, IPF #### [address] [address] [employer]: Wenceslao Rose MD Immature granulocytes/100 WBC (Bld) 0 % Normal 0 [facility] Comment on above: Performed By: #### C DP, IPF #### [address] [address] [employer]: Wenceslao Rose MD Lymphocytes (Bld) [#/Vol] 0.82 10*3/uL Low 1.0-4.8 [facility] Comment on above: Performed By: #### C DP, IPF #### [address] [address] [employer]: Wenceslao Rose MD Lymphocytes/100 WBC (Bld) 13 % Low 24-44 [facility] Comment on above: Performed By: #### C DP, IPF #### [address] [address] [employer]: Wenceslao Rose MD Monocytes (Bld) [#/Vol] 0.88 10*3/uL High 0.1-0.8 [facility] Comment on above: Performed By: #### C DP, IPF #### [address] [address] [employer]: Wenceslao Rose MD Monocytes/100 WBC (Bld) 14 % High 1-7 [facility] Comment on above: Performed By: #### C DP, IPF #### [address] [address] [employer]: Wenceslao Rose MD Morphology Ck (Bld) [Interp] ANISOCYTOSIS PRESENT Normal [facility] Comment on above: Result Comment: MICR OCYTOSIS PRESENT Performed By: #### C DP, IPF #### [address] [address] [employer]: Wenceslao Rose MD Neutrophil (Seg) 71 % High 36-66 [facility] Comment on above: Performed By: #### C DP, IPF #### [address] [address] [employer]: Wenceslao Rose MD Erythrocyte distribution width (RBC) [Ratio] 22.2 % High 11.8-14.4 [facility] Comment on above: Performed By: #### C DP, IPF #### [address] [address] [employer]: Wenceslao Rose MD Hematocrit (Bld) [Volume fraction] 33.5 % Low 40.7-50.3 [facility] Comment on above: Performed By: #### C DP, IPF #### [address] [address] [employer]: Wenceslao Rose MD Hemoglobin (Bld) [Mass/Vol] 10.2 g/dL Low 13.0-17.0 [facility] Comment on above: Performed By: #### C DP, IPF #### [address] [address] [employer]: Wenceslao Rose MD MCH (RBC) [Entitic mass] 22.5 pg Low 25.2-33.5 [facility] Comment on above: Performed By: #### C DP, IPF #### [address] [address] [employer]: Wenceslao Rose MD MCHC (RBC) [Mass/Vol] 30.4 g/dL Normal 28.4-34.8 [facility] Comment on above: Performed By: #### C DP, IPF #### [address] [address] [employer]: Wenceslao Rose MD MCV (RBC) [Entitic vol] 73.8 fL Low 82.6-102.9 [facility] Comment on above: Performed By: #### C DP, IPF #### [address] [address] [employer]: Wenceslao Rose MD NRBC Automated 0.0 per 100 WBC Normal 0.0 [facility] Comment on above: Performed By: #### C DP, IPF #### [address] [address] [employer]: Wenceslao Rose MD Platelet Count See Reflexed IPF Result Normal 138-453 [facility] Comment on above: Performed By: #### C DP, IPF #### [address] [address] [employer]: Wenceslao Rose MD RBC (Bld) [#/Vol] 4.54 10*6/uL Normal 4.21-5.77 [facility] Comment on above: Performed By: #### C DP, IPF #### [address] [address] [employer]: Wenceslao Rose MD WBC (Bld) [#/Vol] 6.3 10*3/uL Normal 3.5-11.3 [facility] Comment on above: Performed By: #### C DP, IPF #### [address] [address] [employer]: Wenceslao Rose MD Immature Platelet Fractionon 10-16-2022 Platelet, Fluorescence 154 [address] [employer] [facility] [employer] Comment on above: ORDERED BY LAB Platelet, Immature Fraction 5.3 % 1.1 - 10.3 % [facility] [employer] Comment on above: ORDERED BY LAB [facility] [employer] Microscopic Urinalysison Casts UA 5 TO 10 HYALINE Refe rence range defined for non-centrifuged specimen. [facility] [employer] Epithelial Cells UA 2 TO 5 [place] [facility] RBC clumps Auto (Urine sed) [#/Area] TOO NUMEROUS TO COUNT [facility] Comment on above: Reference range defi radha for non-centrifuged specimen. WBC, UA 50 TO 100 [facility] PLT, Immature Fract.on 10-16 Platelet, Fluoresc. 154 k/uL Normal 138-453 [facility] Comment on above: Result Comment: ORDE RED BY LAB Performed By: #### C DP, IPF #### [place] [address] [employer]: Wenceslao Rose MD PLT, Immature Fract. 5.3 % Normal 1.1-10.3 [facility] Comment on above: Result Comment: ORDE RED BY LAB Performed By: #### C DP, IPF #### [place] [address] [employer]: Wenceslao Rose MD PTon 10-16-2022 INR Coag (PPP) [Relative time] 1.2 {INR} Normal [facility] Comment on above: Result Comment: Therapeutic Range: Moderate Anticoagulant Intensity: INR = 2.0-3.0 High Anticoagulant Intensity: INR = 2.5-3.5 Performed By: #### P RCAL, BMPX, CRP, PT #### [place] [address] [employer]: Wenceslao Rose MD PT Coag (PPP) [Time] 12.4 s High 9.1-12.3 [facility] Comment on above: Performed By: #### P RCAL, BMPX, CRP, PT #### [place] [address] [employer]: Wenceslao Rose MD Procalcitoninon 10-16-2022 Procalcitonin 0.20 ng/mL High <0.09 [facility] Comment on above: Result Comment: Suspected Sepsis: [...] entered into the Change in Procalcitonin Calculator (www.lpizeh-xib-uymamlswgt.Zaelab) to determine the patient's Mortality Risk Prognosis In healthy neonates, plasma Procalcitonin (PCT) concentrations increase gradually after , reaching peak values at about 24 hours of age then decrease to normal values below 0.5 ng/mL by 48-72 hours of age. Performed By: #### M G, CBC, BMP #### [facility] [address] [id number] [employer]: Wenceslao Rose MD Interpretation and review of laboratory results Abnormal [facility] [employer] Procalcitonin [Mass/Vol] 0.2 ng/mL High NINF - 0.09 ng/mL [facility] [employer] Comment on above: Suspected Sepsis: <0.50 ng/mL [...] entered into the Change in Procalcitonin Calculator (www.ydgwrz-olp-cuovevqlvs.Zaelab) to determine the patient's Mortality Risk Prognosis In healthy neonates, plasma Procalcitonin (PCT) concentrations increase gradually after , reaching peak values at about 24 hours of age then decrease to normal values below 0.5 ng/mL by 48-72 hours of age. [facility] Protime-INRon 10-16-2022 INR Coag (PPP) [Relative time] 1.2 {INR} [facility] Comment on above: Therapeutic Range: Moderate Anticoagulant Intensity: INR = 2.0-3.0 High Anticoagulant Intensity: INR = 2.5-3.5 Interpretation and review of laboratory results Abnormal [facility] PT Coag (PPP) [Time] 12.4 s High [facility] UA w/Reflex Cultureon 2022 Bilirubin, SemiQt,Ur Negative Normal NEG [facility] Comment on above: Performed By: #### M G, CBC, BMP #### [facility] [address] [place] [address] [employer]: Wenceslao Rose MD Blood, Urine LARGE Abnormal NEG [facility] Comment on above: Performed By: #### M G, CBC, BMP #### [facility] [address] [place] [address] [employer]: Wenceslao Rose MD Clarity (U) Cloudy Abnormal CLEAR [facility] Comment on above: Performed By: #### M G, CBC, BMP #### [facility] [address] [place] [address] [employer]: Wenceslao Rose MD Color (U) Yellow Normal YEL [facility] Comment on above: Performed By: #### M G, CBC, BMP #### [facility] [address] [place] [address] [employer]: Wenceslao Roes MD Glucose Ql (U) Negative Normal NEG [facility] Comment on above: Performed By: #### M G, CBC, BMP #### [facility] [address] [place] [address] [employer]: Wenceslao Rose MD Ketones Ql (U) MODERATE Abnormal NEG [facility] Comment on above: Performed By: #### M G, CBC, BMP #### [address] [address] [employer]: Wenceslao Rose MD Leukocyte esterase Test strip Ql (U) SMALL Abnormal NEG [facility] Comment on above: Performed By: #### M G, CBC, BMP #### [address] [address] [employer]: Wenceslao Rose MD Nitrite,Ur Negative Normal NEG [facility] Comment on above: Performed By: #### M G, CBC, BMP #### [address] [address] [employer]: Wenceslao Rose MD PH,Ur 5.5 Normal 5.0-8.0 [facility] Comment on above: Performed By: #### M G, CBC, BMP #### [facility] [address] [place] [address] [employer]: Wenceslao Rose MD Protein Ql (U) 2+ Abnormal NEG [facility] Comment on above: Performed By: #### M G, CBC, BMP #### [facility] [address] [place] [address] [employer]: Wenceslao Rose MD Spec. Byron,Ur 1.023 Normal 1.005-1.03 0 [facility] Comment on above: Performed By: #### M G, CBC, BMP #### [facility] [address] [place] [address] [employer]: Wenceslao Rose MD Urobilinogen,Ur Normal Normal NORM [facility] Comment on above: Performed By: #### M G, CBC, BMP #### [facility] [address] [place] [address] [employer]: Wenceslao Rose MD Urinalysis with Reflex to Cu ltureon 10-16-2022 Bilirubin Urine Negative NEGATIVE [facility] Color, UA Yellow Yellow [facility] Glucose Auto test strip (U) [Mass/Vol] Negative NEGATIVE [facility] Interpretation and review of laboratory results Abnormal [facility] Ketones (U) [Mass/Vol] MODERATE Abnormal NEGATIVE [facility] Leukocyte esterase Auto test strip Ql (U) SMALL Abnormal NEGATIVE [facility] Nitrite Auto test strip Ql (U) Negative NEGATIVE [facility] Protein (U) [Mass/Vol] 5.5 mg/dL 5.0 - 8.0 [facility] Protein (U) [Mass/Vol] 2+ Abnormal NEGATIVE [facility] Specific Byron, UA 1.023 1.005 - 1.030 [facility] Turbidity UA Cloudy Abnormal Clear [facility] Urine Hgb LARGE Abnormal NEGATIVE [facility] Urobilinogen, Urine Normal Normal [facility] Urinalysis,Microon 3 Casts 5 TO 10 HYALINE Normal 0-8 [facility] Comment on above: Result Comment: Refe rence range defined for non-centrifuged specimen. Performed By: #### M G, CBC, BMP #### [facility] [address] [place] [address] [employer]: Wenceslao Rose MD Epithelial cells LM Ql (Urine sed) 2 TO 5 Normal 0-5 [facility] Comment on above: Performed By: #### M G, CBC, BMP #### [facility] [address] [place] [address] [phone] [employer]: Wenceslao Rose MD Urine RBC's TOO NUMEROUS TO COUNT Normal 0-4 [facility] Comment on above: Result Comment: Refe rence range defined for non-centrifuged specimen. Performed By: #### M G, CBC, BMP #### [facility] [address] [place] [address] [phone] [employer]: Wenceslao Rose MD Urine WBC's 50 TO 100 Normal 0-5 [facility] Comment on above: Performed By: #### M G, CBC, BMP #### [facility] [address] [place] [address] [employer]: Wenceslao Rose MD Tobacco Screening.on 023 Adult depression screening assessment No [facility] [employer] [address] DO Work Phone: Fall risk assessment a) No falls within the last year [facility] [address] DO Work Phone: Tobacco use status [facility]PH[facility] b) No [facility] [employer] [place] [address] DO Work Phone: Tumor Staging Formon 022 Tumor Staging Form [id number]:127 Normal [facility] URINALYSIS, REFLEX MICROSCOP ICon 05-06-2022 Bilirubin Ql (U) Negative Negative [facility] Clarity (Unsp spec) Turbid Abnormal Clear [facility] Color (U) Red Abnormal Yellow [facility] Glucose Test strip (U) [Mass/Vol] Negative Negative [facility] Hemoglobin Ql (U) 3+ Abnormal Negative [facility] Ketones Ql (U) Negative Negative [facility] Leukocyte esterase Test strip Ql (U) 75 Danilo/mL Abnormal Negative [facility] Nitrite Ql (U) Negative Negative [facility] pH (U) 7.0 [pH] 5.0 - 8.0 [facility] Protein (U) [Mass/Vol] 1+ Abnormal Negative [facility] RBC LM.HPF (Urine sed) [#/Area] /[HPF] Abnormal 0-3 /HPF [facility] Specific gravity (U) [Rel density] 1.008 1.005 - 1.030 [facility] Urobilinogen Ql (U) Negative Negative [facility] WBC LM.HPF (Urine sed) [#/Area] 11-25 /HPF Abnormal 0-5 /HPF [facility] Screenson 03-30-2022 Screens [id number]:127 Normal [facility] Ambulatory Visit Summaryon 0 03-29-2022 Ambulatory Visit Summary TAURUS GARCIA :1945 Visit Date:03/29/2022 Ambulatory Visit Instructions Your Diagnosis Malignant neoplasm of lateral wall of bladder BPH (benign prostatic hyperplasia) Gross hematuria Tests Performed CT Abdomen/Pelvis w/ Contrast -- Results Pending -- Please visit your patient portal for your results or contact your primary care physician. Your Care Team Attending Physician - Yoko Leyva Jr., MD Primary Care Physician - KOMAL SCHAFFER MD This Is Your Medications List Contact [...] Where: [facility] [address] , [place] [phone] Medications What How Much When Instructions Unchanged [...] adult Pulmonary embolism Radiculopathy Urge incontinence Normal [facility] Patient Educationon 03-29-20 Patient Education Oncology [...] including vitamins, herbs, eye drops, creams, and wznh-eoq-fxocdyv medicines. ? Any problems you or family [...] tells you to take them. ? Taking wfxa-iez-btfusff medicines, vitamins, herbs, and supplements. Tests You [...] and history for this patient from Dr. Leyva. I have reviewed and verified the staff [...] We will (more content not included)... Normal [facility] Comment on above: Result Comment: Elec tronically Signed By: Autumn Molina MD, Yoko Hair\.br\Date and Time Signed: 03/29/22 12:04 EDT\.br\Electronically Co-Signed By: Callie Schaffer\.br\Date and Time Co-Signed: 03/29/22 11:57 EDT Progress [...] Impaired glucose tolerance test / SNOMED CT 059923705 / Confirmed BPH (benign prostatic hyperplasia) / SNOMED CT 689964646 / Confirmed Calcaneal spur / SNOMED CT 75024181 / Confirmed Gross hematuria / SNOMED CT 772383962 / Confirmed Hypercholesteremia / SNOMED CT 60974502 / Confirmed Hypertension / SNOMED CT 0350843147 / Confirmed Lumbosacral spondylosis without myelopathy / SNOMED CT 64789852 / Confirmed Macular edema / SNOMED CT 13957948 / Confirmed Bladder mass / SNOMED CT 2833837363 / Confirmed Myasthenia gravis / SNOMED CT 569160225 / Confirmed Radiculopathy / SNOMED CT 392947231 / Confirmed Obesity / SNOMED CT 4932681695 / Confirmed Obstructive sleep apnea, adult / SNOMED CT 7770213020 / Confirmed Obstructive apnea / SNOMED CT 307243471 / Confirmed Pulmonary embolism / SNOMED CT 22070816 / Confirmed Histories Past Medical History: No active or resolved past medical history items have been selected or recorded. Family History: Cancer Mother Heart disease Father Procedure history: Cystoscopy and transurethral resection of bladder ([id number]) on 03/03/2022 at 76 Years. Cystoscopy ([id number]) on 12/27/2021 at 76 Years. Transurethral water vapor ablation of prostate ([id number]) on 02/16/2017 at 71 Years. CE - Cataract extraction ([id number]). Cardiac catheterization ([id number]). Neck Surgery ([id number]). Comments: 02/17/2022 14:13 EDT - Davina ROMERO, Marina Moore 2017 Social History Social & Psychosocial Habits [...] results Radiology results ECG interpretation Condition Plan [place] [employer] Anesthesiologists (ASA) physical status classification: Class III. Anesthetic Preoperative Plan Anesthesia: General. . Anesthetic plan, risks, benefits, and alternatives discussed with the patient and/or family. Risks discussed: nausea, vomiting, headache, sore throat, dental injury, serious complications. Patient verbalized understanding. Communication: face to face with (patient 5 minutes, Pt educated on the importance of smoking cessation.). Normal [facility] Comment on above: Result Comment: Elec tronically Signed By: Jhonny Fuentes Jr, DO\.rubi\Date and Time Signed: 03/23/22 12:18 EDT Coding Summary.on 03-14-2022 Coding Summary. CD:[id number] Gh0bWw +PGhlYWQ+OL3EGAIdZ82ohQFmd P9HP7hSNO8NTLDZKKTLEJ3YTB4 evYW3MPauJ1YxksKt JmevuIYuEZ68UUt9WGP5hQvsQO ujhW1lzOOaS4x3DeOaGO15rB22 AXumTLEiSdN0XqIaaxinvLJw Y1ccRyHqkQLjKzj+PHRhYmxlIH awAEErDUmsCNRmSvOdcQlnCZ4l Te3uCZTvWAFluIdyqFIzYmNp p0eqAJMoWSdyIH2euStuH4DolR T6HTNjx4o3On19fSS+PHRkIHN0 nUntWEdam818BcBsa3wvHZB1 oKQiHNmcAZX0F39yn0D6LFFoEV DpSCU9rZZ6yC3gdWrvtmzdR7Wm uZUgSlU5TAM3sWFgkP7edEsu cdckhR2rHyb+M93RUP1GGXINHH 7LOvp2H4PrDzoimEK+RX32YYHx SO72eIKykMGap2tptVe5BuHx PSFjDOS2xUccSGxcf0EyDZBbB8 8olZEpo0X1EPXmkLqlcLXvJqWh zEP2cT1jBIwybfosj5ggodhb Mmpnz8uoot61iA91W26zUCgjPA KmGSI1SJPhBPVywYejpk2vgX6u Ii8+RSscm0txr0xepKq8JaRv RDBjzvEssCspQBX4v6YcMm61H9 YzaCxij3JaNvp1tu39nYFna4V9 mRA3BBhmMPWdvR4fFSksVqX8 NTDlLqJcwO28uGFjZIzlJe3abH bvjVaeKM7xPJZfcreaTYMpfD3n WDJfzVLukJvqKT8hRJGkpygo d509BlSkFNM1PJFahZHhR7OpaK 0hKjEpCZMgAVUxF5WjbILiYHge W385BIvmSmQ3LVApgfDpB1Lw CXHnbTtqGqL0a7Q4Nc5Fp4Rmlr lmUMS1XBukMYZ0DqD4KpFsDaK0 C1ZqYkh1WCTisXmhDY2sT6Ax DGNywndzijyfpXT3FARgCLYnpR 13sZGvOTgpBg8xl3R8x657TNCd YLWvuW99Zg2arTxjVEOaxNRH mQ4eurhsr5vfrdnfFjTcCTSmKI a0RVg4WTAycGuaZwBbHEJ9AtW7 HGS1iEUqcJ0uyXgsxtucpJ9f Oyc+T29xhX6vQNR8KBU3yssyQD BverFgGU40FX18K4IjJwcfuWIk bGU+JPYbybRcxKchWR2kDpSs i4yjq6YlYCxiS1IwUNYlAYlrSp g8XKItBXA8cTB5oI8lYRHzYIhb i2O2nQE7O2JrnsAfnq6lf1fa OXEuRCecQ99luLUwd1X3SPHjkQ H7OMZrfXqaYuXorI81Goi+PGNv rIpck5QrJcyyp4uod4cubFr8 BtBkIVEbcwBceJthAUA9r8XvJn 93E04iHXamTLPcXCXtWDGePUZf kTgmod4kbT7tPy6+PGNvbCB3 mXA9vU6eYQQnKdQ4ELrpM295Xh NziBLmTjpjo2wuz2gttNr0KnEf OVDleeFfxGmpQJC7k2UiCc06 B29hVDsvOTQfLUOjULEgBGIllE bctw3znM9yNy2+RA3bd9uqct61 zB44bQK+IXEqJQM2uBfpENzq HATmoT7mQSseBnX1NVKcGzIgeT 85gBNfATfrKc2oyAltrEimJL0w EHGmuraid162EiQfx8blPQNe mRGnKRatCSS4J36hs7Z1TPYtXO LtDOG0mLE1zD4idGerpmbppNKi dByluhUykLqhICdbXKktX812 IHRvcDsnPlBhdGllbnQgTmFtZT t4M9VuBkk6EINeoYbqYL9egDFp GOahAx5uoGyuwIihQT9zPFBx ggvqe302QxXpw6gjOJWniGScBB kzRDX1W84fw7H5IOXeVTPzCFL9 hRU9wU1xcFlijaokfHKjwGyh miIqbUeeZDnfYXdjF046XPXowO reKnCyyqQiZZBfyUK4NJ06WU81 zIVhg4B1gSC7T7BsBZRlbqxu xtzwxAJ3BCAtWXQrqS12Td8xsS zdDx0fNOOfSOG1FUPjfAUfD1Vs nB8aUaDfPLFmMVKgI7FnlBKv LNxyQ370OIhfZfC5QTPmefUhH8 UqABVvpBifQjK3v6X0Oq5ZE4H2 PJ00FG34kRKev7B5fER7I1Nr WOCeasqvlctwqPC6TMLcWVOzgV 11Dq5wlQwePv9wMUIaQXO6CZMy fPEuE2DfqM1rYcVdFPMeNOLm O3LubRFgJShuC394IQkwLrF2TE GdchSoH5UnGSLtnNodWyU6f4E2 Ju5MOEy9XV56HG78hDDhx3G7 cLA5Q9QtMJUocpxwkzprgKV8IS YrWGRwpR18Xz2myPmdVe7tNPWz ZVM7FPPglLCzD0CjkL4dCrLq ZQZlWKWlC2EndYCoSBtbX442IH adCrQ8QNKeczObH5KsGXYecOni OxW0i6I8Yt2KYRKuOY73MBX7 zID0EN03SC51Q1HeLdsvkGXfoC U+PHRhYmxlIHdpZHRoPScxMDAl GdEvaTeeLR3fSh9xWWYhVJHp dOsbaUJcBgXnf1yjXJTqCAznPY 4ddZcmZ6BlyLB5FTDqj1y4Fg94 J24jK3VbsLX+UDLpeJS6aOE6 eA2iSrPoGnG8FPdoI326ImSpsN MhUzcfc1rzi2nqsUf8WwW3LALt wxZkyQinNCE2n6LhKx00W81o IHdpZHRoPSIxNSUiIHZhbGlnbj 9fzS9iXq2+YCQvqZI0oIG3dR6w WqJnNlS7KWgyO475TzRnlNUa Yuced6gfy2glkIh3EvYqJAErjn AfvTckTPR4w0SwVs14C1VaaAhp p0WnXdc9kx50aDAha6R5fQA5 D5ZvXGPzcecgmLQzdQdxNX2nQE FxabhqMCMraC5rIBYmD4k8QoPv BqT1LWtjJ1YvheE1NEHshEJa VZfrPCS0T30pc3K4LUArLOAfWD Z6dWW9uL9yfDnvkejhvFXlsKvk zmWntVprPMajTGazD698UZDb aOwsOIRbpR0mKZEasCEzmQbfAD 2zEHSxuqkgDaJWW59FAmdoB0zD UwiQEeXEOF47LX58rWFks0X6 qAZ0N5TrNDVsxlgtbqonqKX9CK BnQEDytJ52zUBtNEztPr2qj1H4 b420HEFfCJBbzO86Js8bzOka XFPxiOTUfK6vaivyz8zvpfeoAt LeYKWlIMn5BTu5MMQtxGgpPeWf SNG1OcV5SGS2qYKeuL2hgTiy kaosgE6iQyh+MJGlKQFkGLd3GX wvdGQ+DSCbLEB9eAcqESrvLDYi eT4wSNClD3d8XaKhRaJ5UBti E0IzSLZomdmwGx96vB9wZyTrAd F0FXolQ5JxgsR3DXBotUVeAKmf HGC1E12tu5I9EWFzTIViWTP9 wQV3eZ7kiWmqhoishLGeiPovtg YwcZzyFZvaTVtsT351QXWkuQxo Elx6ISyuWRJmPP56IP48kAJm s5B4wXH9Y6EcVYJgxpszedpjcJ Y7NSSgVJBubK21tLFkJFugEx0b w5E7q041YCHrWLWubT37Xw5e pZnrIVJgcXRIpC2genjzm6maei ldUgIiZNMyZBq2LBa5JGIozLgi StQmFBD5WhT1IIX3gHHulN5o xZabzouybK0iZba+TWFsZTwvdG Q+XZEyDUG2oZalXJsoGABgoU4h WYMhC3q2CzNfBmN7OBugJ3Rw MGLzjcprEa86uB2aPkLjXjM3SX piB3ZdumS7KSMtmMGjQCvuEQG7 O73af3Y0HJSvASMrNQN8lRH6 fG2feDojhxgkpIJkaRxjguPbqX yoFBvdSBhaW860AQVnrTnaMcMe DeAaWKXzhfjwA1LmPACSROmb R6LsR6PvdQfysOX+AW79xv78T3 ZkNyogVnd7QEMgZTR1uOL3kH6f KOGiDUnvs0F9hIQ3S1OxykQc kl1eg8exTWUqKSvhH17llWGug7 A0KCEopLP8ZIMlkRddGdGqlR46 Oyc+ECGroMlrp2RuKfltm2qj o9rxcZo8UeTnTZNvnvGoaSisLE O6y9TiLu39Q22wLNzxKXApFYRb OBZrUXWktSjomb5tcT4uFu1+ LTTutHX2dIP0qC2aXmKmEgO9KP duF362ChBfeEOdDjzla2mhv3or hXr3PrRiBZUemmPzeOcxZXX6 n7DnGj03Y8UekMnbq1WzNvx5az 97bFJtq6G2bKF3Y3PhRQAlfmnj iDPrmEoqED5yRCAhmmjxLGJx zW1qGOScU6g4LjDtUxH6RUmhV3 SqhjI5TEVjhSIlEORpwONBcG6m euvpr5wllhifGyBvKHFnKOd1 TQb1PNUqcDekDeKaEFF1NbR5SR V1rRYagH3vaXgpepwlcF2xDvo+ HLi3g6umvWAhXT1hoSA1SC47 YC12tGZho0O0tPS0Z8LtHYIsue kgngmeyWM1KUPiKVNigR59Jv2l pIbuQn2lTJVdZTR0ZQQjeBDk C2BtsZ8vNzWhUJHkEGXqK9DfnQ ApIFjgW817SUfeClQ3TIRmdaCs W7WqXELivHqyFoB8e4O5Jz0I YP55BZ28WF99xYDly9Y8oWO5B6 SoQSPinobkjmvkoXW1SIMgVGVc yQ31Lo0ihMsbJf2wDAUrCSL4 SVCkyMUsD0RuiB4gSyQzQHArTO YiA2NbaTYjDSfoU558MIqiZdM1 LDGvcsXuW6UlZSFxpMlqVxL9 g2I9Km7GPg23SH76QB86eTQsa2 H0zHE0J8XvQQXajeriehluaNV3 OCJpOSGroZ90Vn7ptGmvHt2x VKFlGZD1GUEzgTDyJ1CtbK5lPl ByNJAfEPHqD0NiiXYoDAbpY734 UJcoFjI5ZEXfiwFqH7EmHGYn xVsgSeZ6w9H5Lb5ZXGrpulv7L0 RkPjwvdHI+SM35FKKpKM30fMYo dZTdk5jjoZv0XxNnWXZrAIT3 eWxl (more content not included)... [facility] Progress Note-Physicianon Progress Note-Physician Patient: TAURUS GARCIA Age: 76 years Sex: Male : 1945 Associated Diagnoses: None Author: Jhonny Fuentes Jr, DO Postoperative Information Post Operative Note: Post Anesthesia Care Unit. Anesthetic utilized: General. Health Status Allergies: Allergic Reactions (Selected) No Known Medication Allergies Problem list: All Problems Impaired glucose tolerance test / SNOMED CT 984176399 / Confirmed BPH (benign prostatic hyperplasia) / SNOMED CT 230433528 / Confirmed Calcaneal spur / SNOMED CT 27595865 / Confirmed Gross hematuria / SNOMED CT 490746402 / Confirmed Hypercholesteremia / SNOMED CT 32392627 / Confirmed Hypertension / SNOMED CT 3835286131 / Confirmed Lumbosacral spondylosis without myelopathy / SNOMED CT 46420030 / Confirmed Macular edema / SNOMED CT 06456423 / Confirmed Bladder mass / SNOMED CT 3673629058 / Confirmed Myasthenia gravis / SNOMED CT 715832414 / Confirmed Radiculopathy / SNOMED CT 499123555 / Confirmed Obesity / SNOMED CT 4924867527 / Confirmed Obstructive sleep apnea, adult / SNOMED CT 7082758443 / Confirmed Obstructive apnea / SNOMED CT 069550811 / Confirmed Pulmonary embolism / SNOMED CT 00795723 / Confirmed Physical Examination Vital Signs 03/03/2022 [...] 104 mmH (more content not included)... [facility] Comment on above: Result Comment: Elec tronically Signed By: Jhonny Fuentes Jr, DO\.rubi\Date and Time Signed: 03/14/22 08:36 EDT H&P Updateon 03-10-2022 H&P Update [id number]#1.00CD:127 [facility] H&P Update [id number]#1.00CD:127 [facility] Outside Recordson 03-10-2022 Outside Records [id number]#1.00CD:127 [facility] Postoperative Documentson Postoperative Documents [id number]#1.00CD:127 [facility] Coding Queryon 03-07-2022 Coding Query - From: Analisa Salazar To: Autumn Molina MD, Yoko Hair; Sent: 03/07/2022 13:03:40 EDT ! Subject: Coding Query Dr Leyva, Please document the size of the bladder tumor- -Less than 0.5 cm -0.5 up to 2.0cm -2.0 to 5.0 cm -Larger than 5.0 cm Thank you, Kimberlee HIM Coding [facility] IntraOperative Documentson 0 03-07-2022 IntraOperative Documents [id number]#1.00CD:127 [facility] Consent for Anesthesiaon Consent for Anesthesia [id number]#1.00CD:127 [facility] Discharge Instructionson Discharge Instructions [id number]#1.00CD:127 [facility] IntraOperative Documentson 0 03-04-2022 IntraOperative Documents [id number]#1.00CD:127 [facility] IntraOperative Documents [id number]#1.00CD:127 [facility] Main OR Intraoperative Recor arianna 03-04-2022 Main OR Intraoperative Record IntraOp Document Type FT Summary Primary Physician: Yoko Leyva Jr., MD Finalized Date/Time: 03/04/22 12:28:36 Pt. Name: JOSE TAURUS Nevarez/Sex: 1945 Male Med Rec #: [id number] Physician: Yoko Leyva Jr., MD Financial #: [id number] Pt. Type: A Room/Bed: [place] [address] Admit/Disch: 03/03/22 07:42:53 - 03/03/22 13:20:00 Institution: [...] Entry 2 Entry 3 Case Attendee Yoko Leyva Jr., MD, RN, Zuleyma Alfonso Role Performed Surgeon - Primary Internet E Commerce Specialist - Primary Internet E Commerce Specialist - Primary Time In 03/03/22 09:59:00 03/03/22 [...] Scrub - Primary Scrub - Primary Anesthesiologist Archery Instructor Time In 03/03/22 09:59:00 03/03/22 09:59:00 03/03/22 09:59:00 Time Out 03/03/22 11:23:00 03/03/22 11:23:00 03/03/22 11:23:00 Procedure CYSTOSCOPY TURB(.) CYSTOSCOPY TURB(.) CYSTOSCOPY TURB(.) Comments precepting orienting Dr. Fuentes animal cop Last Modified By: Zuleyma Martinez Leanne M [...] MYTOMYCIN Primary Procedure Yes Primary Surgeon Yoko Leyva Jr., MD Start 03/03/22 10:23:00 Stop 03/03/22 [...] and tissue Entry 1 Skin Integrity Intact, Ai, Warm, and Skin Abnormality No Dry Outcomes Met? Yes Last Modified By: Zuleyma Martinez 03/03/22 10:42:49 Post-Care Text: The patient is free from signs and symptoms of injury caused by extraneous objects Patient Positioning FT Pre-Care Text: Identifies physical alterations that require additional precautions for procedure-specific positioning, verifies presence of p (more content not included)... [facility] Main OR PACU I Recordon 02-18 Main OR PACU I Record PACU Phase I Docum ent Type FT Summary Primary Physician: Yoko Leyva Jr., MD Finalized Date/Time: 03/04/22 07:47:44 Pt. Name: TAURUS GARCIA/Sex: 1945 Male Med Rec #: [id number] Physician: Yoko Leyva Jr., MD Financial #: [id number] Pt. Type: A [facility] Admit/Disch: 03/03/22 07:42:53 - 03/03/22 13:20:00 Institution: [...] 15:56 Lucy Ohara RN 03/04/22 07:47 [facility] Preoperative Documentson Preoperative Documents [id number]#1.00CD:127 [facility] Preoperative Documents [id number]#1.00CD:127 [facility] Consent for Procedure/Surger yon 03-03-2022 Consent for Procedure/Surgery [id number]#1.00CD:127 [facility] Consent for Treatmenton 02-18 Consent for Treatment [id number]#1.00CD:127 [facility] Inpatient Patient Summaryon 03-03-2022 Inpatient Patient Summary [place] [id number] [facility] Clinical Discharge Instructions PERSON INFORMATION Name: TAURUS GARCIA [facility]#:[id number] PHYSICIANS Admitting Physician: Yoko Leyva Jr., MD Attending Physician: Yoko Leyva Jr., MD PCP: SARBJIT BRIDGES, KOMAL Hamlin Discharge Diagnosis: Malignant neoplasm of overlapping sites of bladder Comment: PATIENT EDUCATION INFORMATION Instructions: Post Op Patient Instructions - FT (CUSTOM) Medication Leaflets: Follow up: With: Address: When: [facility]oko Le[facility], [address] [place] [address] [facility] (1) Within 2 to 4 weeks Comments: Reviewed pathology report and plan exudative treatment. Call for any problems. Call for followup appointment MEDICATION LIST New Medications [facility], [address] [place], [place] [id number], [phone] cephalexin (Keflex 500 mg Cap) 1 Capsules [...] times a day., Myasthenia Gravis Comment: [facility] Main OR Preoperative Recordo n 03-03-2022 Main OR Preoperative Record PreOp Document Type FT Summary Primary Physician: Yoko Leyva Jr., MD Finalized Date/Time: 03/03/22 12:14:22 Pt. Name: TAURUS GARCIA/Sex: 1945 Male Med Rec #: [id number] Physician: Yoko Leyva Jr., MD Financial #: [id number] Pt. Type: A Room/Bed: 11/19 Admit/Disch: 03/03/22 07:42:53 - Institution: Case Times [...] Signed By: Zuleyma Martinez 03/03/22 12:14 [facility] Operative Reporton Operative Report Patient: MARGRET GARCIA Age: 76 years Sex: Male : 1945 Associated Diagnoses: None Author: Yoko Leyva Jr., MD Postoperative Information Procedure: Cystoscopy with transurethral resection of bladder tumor, instillation of Mitomycin-C Date/ Time: 03/03/2022 11:30:00 Preoperative Diagnosis: Malignant neoplasm of overlapping sites of bladder (ZZA18-MG C67.8, Discharge, Medical). Postoperative Diagnosis: Malignant neoplasm of overlapping sites of bladder (ZNG64-DW C67.8, Discharge, Medical). Performed by: Yoko Leyva Jr., MD. Findings: This patient is a [...] and there was no bleeding a 16 [place] Smith cath was introduced. 40 mg of Mitomycin-C was then instilled into the Smith catheter which was then connected to the [...] of bladder tumor, instillation of Mitomycin-C Yoko Leyva Jr., MD, FACS . Specimens Removed: Bladder tumor. Prosthesis: 16 [place] Smith catheter. . Estimated Blood Loss: 5 ml. Medications: Mitomycin-C 40 mg intravesical instillation. Complications: None. Anesthesia type: General. [facility] Comment on above: Result Comment: Elec tronically Signed By: Autumn Molina MD, Yoko Hair\.rubi\Date and Time Signed: 03/03/22 11:36 EDT Outpatient Surgery Discharge Instructionon 03-03-2022 Outpatient Surgery Discharge Instruction [place] [id number] Patient Discharge Instructions PERSON INFORMATION Name: TAURUS [...] Date Follow up: With: Address: When: [facility], [address], [place] [address] Business (1) Within 2 to 4 weeks Comments: Reviewed pathology report and plan exudative treatment. Call for any problems. Call for followup appointment Pharmacy Information: You may receive a survey from [employer] asking you to rate your care experience. Your feedback is important and will help us understand what we do well and how we can improve the quality of care we provide to you, your loved ones and our community. It?s an honor to serve you. Thank you for choosing [facility] HERE ARE THE MEDICATION CHANGES THAT OCCURRED DURING YOUR HOSPITAL STAY New Medications [facility], [address] [place] [id number], [phone] cephalexin (Keflex 500 mg Cap) 1 Capsules [...] PATIENT EDUCATION INFORMATION Instructions: Medication Leaflets: [facility] Patient Education - Texton 0 03-03-2022 Patient Education - Text [facility] Outside Recordson 03-01-2022 Outside Records [id number]#1.00CD:127 [facility] Formson 02-28-2022 Forms [id number]#1.00CD:127 [facility] Coding Summary.on 02-24-2022 Coding Summary. CD:[id number] Gh0bWw +PGhlYWQ+QR0AWPRsN83grBDbp A7TF9hZQW1TWMNMICCQIU2RKG5 ltMQ9XUzpB7VikvYb TrlsgANzFZ55WNq9MNZ3wDdeQI jpgC3xwDLgK5v4ZyTdBT73zM80 FNyxZLDfTsU1BxBxxhlztGQc F5nhLvOetEBuYfj+PHRhYmxlIH szUKFiXTgrKRUgNjSyzDvpZQ5v Qg9vLTZdSYIfrHqduBFuAlOn d3dxRCKdHGgtWH0cjTpoZ5AbxZ H3NKFbz1u1Nx55yLP+PHRkIHN0 xFwaUXxps404DaVfw7kyODZ0 sZXtSApaNGM6T61ev9D1DLVfZI KzHFF9jFG7yO5swLhyjpdiT9Xq nZPcApN7VJD5jLRyvB0hzIff hxozwL9lJjb+Y60OLQ3XOSWWLQ 1PGva8T1RkExamsCV+KQ49BCUb PM87gKEdyUPnc9updJt5MaJa QZYuSGZ7pOjcUZghy9BwTNPyP2 7vhUSzc9Q4NTDwxImyqYDqFwSs vEO6dL2wFHgqhswxf7rxhvaz Titod0wziu03fX76Z63fNKjuDA FvSHU4FRDoUFPjiHnmbv1dsW5a Ii8+LDbjf1qtd0fmhHu2ZaWx TKEdneXwgDdsBNY0b4GeEq62Z4 KpeLvob9ZlCkc1dw10kDPjs3K3 vHU7VZddVFPedS8bOAnuQzR5 DCTeTxOcgF96gWAbJFvuIx8tzC uenWczVC5mBAVebiblKYBypL8z GIGyoELclTryGG1oTMXgdovp m368AfLaDRC1OTYneTIpW9PeeW 2mZhRdROUsSEHsQ4MghZTyLYmi M245IBfmSsS9UHTestEiJ9Ve XMGzlJkqTnS2t7H5Is5Uf9Uxnr jjJOY0DMzhICN8KlY1NaQeNxN8 D8BtUox2OZVfqBvzPU1sB2Vn PIOtctyifbvniOA8OWCzJKBugN 51fEUdCHwoYc3sg3V0t728HWEw VCTllA52Wn9svYjdBKNttXUE aW6sxhbbq5fzpeveUgBkJLEcEI g8MYj0APHndAptOyMjSLK0BaG2 FCO1gCRldK7ccVekxarqdA7n Oyc+T22giN2oZGS8SGK7shyhST JxraVyYI32AH92O2KcRznlzJCa bGU+HMGgbzWhzMsaDB2dAfBj q5bjy8MrUSucU2OgBILeFAkyNg k6LSOkVPZ0tUX1sM7tPYEvTJrn o1M2hRH8D7WopdYtei0hk2tk TDDgPNziQ37dcZTle8X2BTIhwG B6LFGwaHceFoUulR16Zpf+PGNv nXdkj8LeNjonl9pjq2fapCv7 GpUmSVDrwbOtdXqoAUL3e0IvSx 55Y52qWAcuRCYaTBCgXTDpHYKv tDdoqn1mhS9iLb7+PGNvbCB3 aGH6sT2gFKVdTcM3YSetF813Yb IzsKHgCsmsl8wij6xpsXe6BvZl MQEvopLjxQmiOED6j9CwIa76 P63aJDfkGIZcADNdADZlWDZutC hkcz6lrP0eXr3+KW5pa7pauw03 bN66jZQ+XKYxBVW0jOisPHcg YQRgzL4uGMmvAzF8GTAoMaRcmA 61zGFaNKckWk6eaOmeiYoaOH8y DNXizjkdf694ArZhu2knUJUt tTLlKQgjSYX0C51da9B0ADRvRR XzKND9bDF1lJ2mvPoovuwndQCl cOpmqyIcpXrpZWtwDHkuG551 IHRvcDsnPlBhdGllbnQgTmFtZT o3J8RjKvj0IXVrfGplCF2stUQh PTklHi9xnKnmeXyfNR4kBXHd chqdp497DyTbn1cbXQJddXIzSJ xnWEO3I85fy2T5TMJiNAFuWLC0 wAM1lJ8rjOrreaqtzZTjkMlv zxZtcFksVSjbNDitE335ACVrjZ tqZzOryyRwAEZjvMN8EL62VQ02 vREca6L6fJN9I9VnCOByqotv rkvakAL6QNStEKUkiH33Co7hkN tdCa9wJHSpXHM5MRDrmGRaK3Hc fT8dSdMdDZNgYMQmC2HloRFw LKtpW451HTynMkN1XSBqvnJcN5 RjOLLiwGlgOmQ9k2A0Gm8VP3S3 UY81YL91fHIhr4J8tUE5P6Wp VDLfsvjdzwpncIH6DZQzQBEliX 02Ni6hsMbpNq3bIALcSEI4JRUi gPQxI6KmhH5uMxDqZNAxBBDu M5ZpqYNaAYzsC369ZHsvMtY0NG NpxcXkO1IfIQWrkVqrUiT7m9K3 Bm8GIUw9RJ00PU44eBQhy2F7 qKR8R0QfLRVdssopsscqzNV0JU FgYZEusL46Jh0alPhxCw3cMDSt AOP5BXZxhSPqY9MhaB3dPoKp XZPgLDKrU7EpcGPuMKasN935CD fsZiV4OPIoqyLkL9SeYUZtbVip YtG6u6R8Eu0QCSAlFM10FIU9 bSB3TK01TR06Y5OeGrukxHCvmC U+PHRhYmxlIHdpZHRoPScxMDAl VuSqpNdpHB7aBf8rPYKpFEBc dUjwgIUiSwUhv3ldQTCyBGoaYG 3wkYpsH2MfrWY8IJQoh6y7Wl95 N00rM6FtnVG+NBUpbHX5vGS4 mO9nYuRpWzJ1EMysO349AmKjqA DqOkcrv3xaf5xoeZd8LuR9QJAp gnRlhWxtJUV8s4TzBo04O48k IHdpZHRoPSIxNSUiIHZhbGlnbj 0cdD9mNi3+LIMrbWT7mFV2eZ8g JuIxAbZ3XDvyD873ZgBqyIDj Kicao8krs9lbiZw6KuYuGQBplv EvnHxkPOF9i5ZoBg37M0SwcUfl d2YkUqz4mh67nKVlq9V8mSM7 D9SxMBEwtmpumTRzkKptGG1rYB HblmcgEIWpiS5zXIDwH7b2JhYh OyG3JBweL0GzkkZ0NMFksZUl YKuhNIX4E30bt5B3WZGeNCFkIW C2aUQ7bQ3iwKholxwwrWNgiAea yrYymTquDEyrRFcrN256MOXl xBpbOJSboI9zJKKsiTAwkGveJM 4dZZRjohjtKxFQX31IFgdgW0zY YkxKFfIBSM82RP19gFLxo1B2 eUH6A1AaMSAtorijkknnfNC0EU JzAIOhiK44ePGpHZarBt0re3A4 y068DVOqLTFmdH28Af4bwQew JBYfaPYUsX5dislsn7lfastcGl IcWAAsBIl1SIl3CGFwdBibMiRn VDJ0VcU3MAT9wHGngA1jiExa iuwhzP1qDke+IKGlGKFoJIn8LH wvdGQ+JMWaVUL6yMuiFUuvBRVu zJ0yVAUoL5z7LoPnKzN8YMlg Q4ZsIVRbmuqkNr09oA2jKkNcSi P9HXpoV3QnywB5LUYfcPSbXZds GER1A12qt1C4FJFcOQJlOSQ5 fYH7rI6fgMrtctqmgQBqdLftvg DhjHrwVZtxUVeeI218HDDxuVda Xdp8HAsqWCIwMD00QC28eBYg e6G3fYL8G6FgZLElzvcizsgejK A7OFTfOONwdN33oCLvPApoUu7a d2I2h351NKRdESEzaV75Ne7p jRpnNWRbpJGQbM2doglpp9zkmu evJvDjLPXiRTm4OOz0OGBacPvp NnJyKZH4QtV3AEP9tHYktB6w dYngebaqpT1cTfq+TWFsZTwvdG Q+FPBvGLE0pTapSZyfXPGcyX5b WASoJ1c1CfEdNuW0QUewE4Nl QWLmbzzsIo34qX5tIpUiQcH8MY hkB7XpeyA4VOYqeZFxAJrlLTH4 D89ab7B5QGIcHTCxUBK3qZA8 lF3twAmenhkmfZQbpZyrjtTulO iiRBmsWOmdX442XFRnbLbpKm58 jSKxuXfqepE6R5YqBftfdWX+ UC34SIPqDA16nKUhdNXxg0xktQ i6FgNbBUOcCMJ9hOdkOWcfl6Rg NDQoR58mdOSjb8V4SKDvoSog tJCiWtOdaRA5sQ9mOVujmizux3 yeehnyFchly5csfw19wB17G79n IHdpZHRoPSIzMCUiIHZhbGln tp7zoY7bDx5+KYIukAC4kNT2uD 6mWrJxUeJ1ENvyL580IoSyaATr Fheos1mkb7kryZn3TfBhYBPx veFtoIefYXR4v1RrLo12N21oOD bqCYVpMPKgFVCuEDZihNipbl4r xY3qJy6+PE2td2olju91nL00 dHI+TPKaZOE3qBjhVOcoGYQpdN 3lXDdjSbS5VTDcTsYveH95iHEr IEraQe1tgQteuDstMV7uVGQj pvhpq517CuOcd3rfLXWtoUSsWS zoZQB8H95js7M1QTYgLFClYWS0 dXY4rI5uiIgwjqrlcUYitOen nbWfhWlcIRmwBTcxE292QYEwcR kqLaZsdELoD5tzjgMLHO6bIndy dGQ+YDLfQNB0mVvzJHihQURx oT4vHVYwQ3c5EgHuYbN3AYrmO2 DwiuU1SSEndNVkJANpeSKCzV4o dhiff6xohpbnYiIvFVNrTVh6 DOo6AVTswMzpHrIiCLB3LrL8LH S3tOEzkQ0xvKzieapzdL1gQqx+ RklOOjwvdGQ+VUHcQWY5qSlu RTfuNKRkfT5eTVTiD4p9SpJbLh S5BPqjB8BzugF3FCQxpADbSPCn fGNYqC1dkpbvj6kfjlaoNyAz VLVbXCv9HLy6FZPcgTwnLtIuEB B0QgA7IIO0eLMyyQ2jmEgwbezd pM3uXlj+TVJOOjwvdGQ+PHRk LBZ4sNpzNDyfPJTymH0qCBZdG7 j5YqCzLsY7ENciQ3NugwX2VIAn uQSoVYMwdFPTtN9ihbiuf0dv nmdgNmVbHAKtOEl9JNm2FVFotY tfIoZdOVC7AqG8LFP6dBZdnC1s gWezxrmubI1vJwy+VNJ7QMM2 MN36CO68T7MoSnkvmHByhHF+PH RhYmxlIHdpZHRoPScxMDAlJyBz yPzrSG7uOc2wZSWrVMGmcAue cHNl (more content not included)... Normal [facility] Outside Recordson 02-22-2022 Outside Records [id number]#1.00CD:127 Normal [facility] Outside Records [id number]#1.00CD:127 [facility] Outside Records [id number]#1.00CD:127 [facility] C Urineon 02-19-2022 Bacteria identified Cx Nom (U) Microbiology PROCEDURE: Urine Culture [R1] SOURCE: U CleanCatch BODY SITE: COLLECTED DATE/TIME: 02/17/2022 14:09 EDT RECEIVED DATE/TIME: 02/17/2022 15:25 EDT START DATE/TIME: 02/17/2022 15:25 EDT FREE TEXT SOURCE: Autumn Molina MD, Yoko Leyva Jr., MD, Yoko Hair FINAL REPORTS Final Report [] Verified Date/Time: 02/19/2022 09:50 EDT 1,000 cfu/ml Mixed skin contaminants Performing Locations R1: This test was performed at: [facility], [address] [place] [address], [phone] , , Normal [facility] Comment on above: Performed By: #### 1 [id number], [id number] #### [facility] [address] [place] [address] XR Chest 2 Viewson XR Chest 2 [...] M.D. Transcribed by: SANDY Technologist: PABLO Martin [facility] Auto Diffon 02-17-2022 Basophils/100 WBC (Bld) 0.6 % Normal 0.0-2.0 [facility] Comment on above: Order Comment: Order Added by Discern Expert. Performed By: #### 2 [id number], [id number], [id number], [id number], [id number] ####[facility] [address] [place] [address] Basophils/Leukocytes Auto (Bld) [Pure # fraction] 0.0 E9/L Normal 0.0-0.2 [facility] Comment on above: Order Comment: Order Added by Discern Expert. Performed By: #### 2 274390, 1954465, 35344551, [id number], 4635365 ####[facility] [address] [place] [address] Eosinophils/100 WBC (Bld) 0.2 % Normal 0.0-8.0 [facility] Comment on above: Order Comment: Order Added by Discern Expert. Performed By: #### 2 680356, 2682477, 22870338, 89617403, 1253223 ####[facility] [address] [place] [address] Eosinophils/Leukocytes Auto (Bld) [Pure # fraction] 0.0 E9/L Normal 0.0-0.5 [facility] Comment on above: Order Comment: Order Added by Discern Expert. Performed By: #### 2 610287, 4013898, 95683426, 84785495, 8509258 ####[address] [place] [address] Lymphocytes/100 WBC (Bld) 9.6 % Low 14.0-50.0 [facility] Comment on above: Order Comment: Order Added by Discern Expert. Performed By: #### 2 353933, 6528573, 39996066, 99918640, 9282650 ####[address] [address] Lymphocytes/Leukocytes Auto (Bld) [Pure # fraction] 0.7 E9/L Low 1.0-4.0 [facility] Comment on above: Order Comment: Order Added by Discern Expert. Performed By: #### 2 082424, 0592231, 46451463, [id number], 1283682 ####[address] [address] Monocytes/100 WBC (Bld) 7.0 % Normal 4.0-14.0 [facility] Comment on above: Order Comment: Order Added by Discern Expert. Performed By: #### 2 816958, 3310545, 47261069, 86502180, 7727308 ####[address] [address] Monocytes/Leukocytes Auto (Bld) [Pure # fraction] 0.5 E9/L Normal 0.2-1.0 [facility] Comment on above: Order Comment: Order Added by Discern Expert. Performed By: #### 2 737416, 7334178, 22303557, 50335769, 7652666 ####[address] [place] [address] Neutrophils/100 WBC (Bld) 82.6 % High 36.0-75.0 [facility] Comment on above: Order Comment: Order Added by Discern Expert. Performed By: #### 2 266382, 6592227, 68000675, 91507078, 5762450 ####[facility] [address] [place] [address] Neutrophils/Leukocytes Auto (Bld) [Pure # fraction] 6.3 E9/L Normal 2.0-7.5 [facility] Comment on above: Order Comment: Order Added by Discern Expert. Performed By: #### 2 319243, 6595230, 35797996, 44102959, 5099616 ####[facility] [address] [place] [address] BMPon 02-17-2022 Anion gap [Moles/Vol] 11 mmol/L Normal 6-16 [facility] Comment on above: Performed By: #### 2 548743, 8477279, 92185769, 21857875, 5248540 ####[address] [place] [address] Calcium [Mass/Vol] 9.3 mg/dL Normal 8.9-11.1 [facility] Comment on above: Performed By: #### 2 177515, 3976618, 51675375, 94847719, 7842598 ####[facility] [address] [place] [address] Chloride [Moles/Vol] 104 mmol/L Normal 101-111 [facility] Comment on above: Performed By: #### 2 552163, 5600510, 08909353, 43560523, 4741953 ####[facility] [address] [place] [address] CO2 [Moles/Vol] 27 mmol/L Normal 21-31 [facility] Comment on above: Performed By: #### 2 942867, 8238863, 64067029, 84812954, 7422869 ####[facility] [address] [place] [address] Creatinine [Mass/Vol] 1.4 mg/dL High 0.5-1.3 [facility] Comment on above: Performed By: #### 2 761124, 0264748, 47776698, 71207510, 8365008 ####[facility] [address] [place] [address] Glucose [Mass/Vol] 144 mg/dL Normal 55-199 [facility] Comment on above: Result Comment: If t his glucose result represents a fasting glucose, interpretation should refer to the following reference range: 55-99 mg/dL Performed By: #### 2 749263, 0153054, 73738779, 27064892, 0532389 ####[facility] [address] [place] [address] Potassium [Moles/Vol] 3.4 mmol/L Low 3.5-5.3 [facility] Comment on above: Performed By: #### 2 593141, 4423526, 14882455, 02053491, 7602936 ####[facility] [address] [place] [address] Sodium [Moles/Vol] 139 mmol/L Normal 135-145 [facility] Comment on above: Performed By: #### 2 529010, 4057129, 51890119, 99726178, 2383954 ####[facility] [address] [place] [address] Urea nitrogen [Mass/Vol] 24 mg/dL High 5-21 [facility] Comment on above: Performed By: #### 2 200479, 6335748, 89275692, 66464535, 0705889 ####[facility] [address] [place] [address] Urea nitrogen/Creatinine [Mass ratio] 17 No Units Normal 10-20 [facility] Comment on above: Performed By: #### 2 202571, 1719709, 01282407, 87472879, 7796195 ####[facility] [address] [place] [address] CBC w/ Auto Diffon Erythrocyte distribution width (RBC) [Ratio] 15.2 % High 10.9-14.2 [facility] Comment on above: Performed By: #### 2 054987, 1661232, 75257783, 71540832, 2808850 ####[address] [place] [address] Hematocrit (Bld) [Volume fraction] 35.8 % Low 37.7-49.0 [facility] Comment on above: Performed By: #### 2 724720, 2361237, 08178283, 09479983, 7599905 ####[address] [place] [address] Hemoglobin (Bld) [Mass/Vol] 11.7 g/dL Low 13.5-17.5 [facility] Comment on above: Performed By: #### 2 261211, 6721108, 49458081, 93616936, 9183577 ####[address] [address] MCH (RBC) [Entitic mass] 29.1 pg Normal 27.0-34.0 [facility] Comment on above: Performed By: #### 2 503003, 9051471, 72672028, 19772671, 5566691 ####[address] [address] MCHC (RBC) [Mass/Vol] 32.7 g/dL Normal 31.4-36.0 [facility] Comment on above: Performed By: #### 2 973795, 1545869, 05854748, 01641609, 0000925 ####[address] [place] [address] MCV (RBC) [Entitic vol] 89.1 fL Normal 80.0-100.0 [facility] Comment on above: Performed By: #### 2 426721, 3551650, 32741443, 16721740, 6411127 ####[facility] [address] [place] [address] Platelet mean volume (Bld) [Entitic vol] 9.4 fL Normal 6.4-10.8 [facility] Comment on above: Performed By: #### 2 048791, 6788640, 16811083, 99956626, 7155365 ####[facility] [address] [place] [address] Platelets (Bld) [#/Vol] 185.0 E9/L Normal 150.0-500. 0 [facility] Comment on above: Performed By: #### 2 317585, 2836836, 82989631, 15043619, 2539346 ####[address] [place] [address] RBC (Bld) [#/Vol] 4.0 E12/L Low 4.3-5.9 [facility] Comment on above: Performed By: #### 2 673707, 1736260, 78003297, 44382576, 4637924 ####[address] [place] [address] WBC corrected for nucl RBC Auto (Bld) [#/Vol] 7.7 E9/L Normal 4.0-11.0 [facility] Comment on above: Performed By: #### 2 169475, 8460247, 12422386, 97176732, 0999076 ####[facility] [address] [place] [address] CHEMISTRYOrdered By: SYSTEM SYSTEM on 02-17-2022 Anion [...] 24 mg/dL High 5 - 21 mg/dL FT [facility] Urea nitrogen/Creatinine [Mass ratio] 17 mg/mg [...] for Treatmenton 01-21 Consent for Treatment [id number]#1.00CD:127 Normal [facility] HEMATOLOGYOrdered By: SYSTEM SYSTEM on 02-17-2022 [...] 7.7 E9/L Normal 4.0 - 11.0 E9/L [place] HemeAutoSS PT & PTTon 02-17-2022 aPTT Coag (PPP) [Time] 31.0 second(s) Normal 25.1-36.5 [facility] Comment on above: Result Comment: Hepa rin therapeutic range (represented by Anti-Factor Xa activity of 0.2 - 0.4 U/mL) corresponds to PTT of 56.6 - 109.0 sec. Performed By: #### 2 456820, 4688351, 43111774, 30156008, 2742602 ####[facility] [address] [place] [address] INR Coag (PPP) [Relative time] 1.3 {INR} Invalid Interpretation Code [facility] Comment on above: Result Comment: INR results are specifically intended to assess patients stabilized on long-term Anticoagulation therapy suggested INR?s ?Less Intensive Anticoagulation? 2.0 ? 3.0 Conventional Range 3.0 ? 4.5 Performed By: #### 2 398221, 3277178, 89175624, 66494658, 0367340 ####[facility] [address] [place] [address] PT Coag (PPP) [Time] 15.5 second(s) High 10.2-12.9 [facility] Comment on above: Performed By: #### 2 677648, 2263034, 46595242, 42104366, 1318783 ####[facility] [address] [place] [address] UA With Cult Reflexon 2021 Bacteria LM Ql (Urine sed) SEE COMMENT Invalid Interpretation Code [facility] Comment on above: Result Comment: POSS IBLY PRESENT BUT OBSCURED BY COPIOUS AMOUNT OF RBCS Performed By: #### 1 8443575, 5030112 #### [facility] [address] [place] [address] Bilirubin Ql (U) Negative Normal Negative [facility] Comment on above: Performed By: #### 1 2279194, 9176813 #### [facility] [address] [place] [address] Clarity (U) CLOUDY Abnormal Clear [facility] Comment on above: Performed By: #### 1 0040939, 2512314 #### [facility] [address] [place] [address] Color (U) RED Abnormal Yellow [facility] Comment on above: Performed By: #### 1 4769284, 2386897 #### [facility] [address] [place] [address] Epithelial cells.squamous LM.HPF (Urine sed) [#/Area] See Comment Normal 0-[address] [facility] Comment on above: Result Comment: POSS IBLY PRESENT BUT OBSCURED BY COPIOUS AMOUNT OF RBCS Performed By: #### 1 2598514, 2118576 #### [facility] [address] [place] [address] Glucose Test strip (U) [Mass/Vol] Negative Normal Negative [facility] Comment on above: Performed By: #### 1 2768438, 9845114 #### [facility] [address] [place] [address] Hemoglobin Ql (U) 3+ Abnormal Negative [facility] Comment on above: Performed By: #### 1 6875686, 7194595 #### [facility] [address] [place] [address] Ketones (U) [Mass/Vol] TRACE Invalid Interpretation Code Negative [facility] Comment on above: Performed By: #### 1 6950617, 8388270 #### [facility] [address] [place] [address] Noble.plasma/Noble .RBC (Bld) [Mass ratio] >75 Abnormal 0-3 [facility] Comment on above: Performed By: #### 1 4175614, 0715538 #### [facility] [address] [place] [address] Nitrite Ql (U) Positive Abnormal Negative [facility] Comment on above: Performed By: #### 1 8971648, 8566214 #### [facility] [address] [place] [address] pH (U) 7.0 [pH] Invalid Interpretation Code 5.0-9.0 [facility] Comment on above: Performed By: #### 1 5840990, 3311880 #### [facility] [address] [place] [address] Protein (U) [Mass/Vol] 3+ Abnormal Negative [facility] Comment on above: Performed By: #### 1 4829241, 9486002 #### [facility] [address] [place] [address] Specific gravity (U) [Rel density] 1.015 Invalid Interpretation Code 1.005-1.03 0 [facility] Comment on above: Performed By: #### 1 7436728, 6105495 #### [facility] [address] [place] [address] Type of Urine collection method Clean Catch Normal [facility] Comment on above: Performed By: #### 1 2054352, 3482838 #### [facility] [address] [place] [address] Urobilinogen Qn (U) 1.0 {Terry'U}/dL Normal 0.0-1.0 [facility] Comment on above: Performed By: #### 1 8188183, 4135715 #### [facility] [address] [place] [address] WBC Auto Ql (U) 1+ Abnormal Negative [facility] Comment on above: Performed By: #### 1 0514671, 6139008 #### [facility] [address] [place] [address] WBC LM.HPF (Urine sed) [#/Area] See Comment Normal 0-5 [facility] Comment on above: Result Comment: POSS IBLY PRESENT BUT OBSCURED BY COPIOUS AMOUNT OF RBCS Performed By: #### 1 4211685, 3962246 #### [facility] [address] [place] [address] URINALYSISOrdered By: Luis Enrique wiley on 02-17-2022 [...] Interpretation Code Negative [facility] UA Auto SS Noble.plasma/Noble .RBC (Bld) [Mass ratio] >75 /HPF Invalid [...] [facility] UA Auto SS Urobilinogen Qn (U) 1.2890042 {Terry'U}/dL Normal 0.0 - 1.0 EU/dL [facility] UA Auto SS WBC Auto Ql (U) 1+ *ABN* (02/17/22 2:09 PM) Invalid Interpretation Code Negative [place] UA Auto SS WBC LM.HPF (Urine sed) [#/Area] See Comment 3 (02/17/22 2:09 PM) Normal 0-5 [facility] Comment on above: Result Comment: POSS IBLY PRESENT BUT OBSCURED BY COPIOUS AMOUNT OF RBCS eGFRon 02-17-2022 GFR/1.73 sq M.predicted among blacks MDRD (S/P/Bld) [Vol rate/Area] 59 mL/min/1.73 m2 Normal >=59 [facility] Comment on above: Order Comment: Order added by Discern Expert. Result Comment: eGFR is race adjusted. AA=. Performed By: #### 2 595635, 6993980, 22699059, 66081209, 6908169 ####[facility] [address] [place] [address] GFR/1.73 sq M.predicted among non-blacks MDRD (S/P/Bld) [Vol rate/Area] 49 mL/min/1.73 m2 Low >=59 [facility] Comment on above: Order Comment: Order added by Discern Expert. Result Comment: High Voltage Electrician swathi kidney disease could be indicated at eGFR's of less than 60 mL/min/1.73m2. Kidney failure is indicated at less than 15 mL/min/1.73m2. Performed By: #### 2 601463, 4355129, 82833071, 78598158, 1083481 ####[facility] [address] [place] [address] XR Spine Lumbar 4+ Views*on 02-10-2022 XR [...] by JACKLYN KOO on 02/11/2022 0917 Normal [facility] Ambulatory Visit Summaryon 0 02-01-2022 Ambulatory Visit [...] Normal [facility] Patient Educationon 02-02-20 Patient Education Oncology Bladder [...] Follow these instructions at home: ? Take bzks-zuw-itnzzof and prescription medicines only as told by [...] important. Where to find more information ? [place] [employer]: www.cancer.org ? National Cancer [place] (NCI): www.cancer.gov Contact a health care provider [...] 08/09/2004 Document Revised: 07/20/2018 Document Reviewed: 07/11/2017 [employer] Patient Education ? 2019 [employer]. 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 He had a TUR of his bladder tumor on 01/13/2022. Is here today for his first postop visit. [facility] Staff Taurus is here today for a [...] q12hr, # 30 tab(s), Refills(s) 0, Pharmacy: [facility] Urology Procedure (more content not included)... [facility] Comment on above: Result Comment: Elec tronically Signed By: Autumn Molina MD, Yoko Hair\.br\Date and Time Signed: 02/01/22 11:54 EDT\.br\Electronically Co-Signed By: Jolly Justice\.br\Date and Time Co-Signed: 02/01/22 11:50 EDT Operative Reporton Operative Report [id number]#1.00CD:127 [facility] Coding Summary.on 01-25-2022 Coding Summary. CD:[id number] Gh0bWw +PGhlYWQ+OQ6TIPNoZ81zjOYzh A3PN5lATH7PJCUAOYULEK3WKE2 thCQ0OGlfD9GrypOm UwgzyFUjAE84EQs9DOB5fXlbJF ltbV2ijMOiP0l9UyFfUB98nX06 HWfuBQRlRpP7SbKclveokYYj H3ldTsEenUCmEkt+PHRhYmxlIH bcXBClGQmkHLFcCyZagHkuQM9r Ft6yLUBcIOCgeTfelOIhHzAk h3jlQKFdOPhqCQ5xgOjaT2TqeO U6CWZun8u2Ef82lBN+PHRkIHN0 yPyuFTtpy038EoVkm7prIVG3 hURnNHlsGCI4K85wf5A4HWNgLV ByEML2jJE6fT0ecQxhpuvtC9Yi iLEwDpA3IET2yYPpwC5tgMyj hdpaqU6uBql+B88BJC6OTORZJN 2LAeb9K9OfTckfmVT+ZJ53HMSf LG29dCRezBQqe0efjWd9WmAi KKAlYMO3uYzxQFsgn0SgTGDhQ0 2naJHzw8K4BRMlpWgtvNFwCeRd bMD5tL6nJMzxyryhc3ojviiv Wnrkt9kemc03sT52P79kCEanUB FbCZD2ZKSjIWEmkLjnbx9ovW4c Ii8+OIfsw6ntg7ptnAw1BaOe IMHwblDdhCsdSKO9q1NfMd74N3 NzjSwdu0PiCyg5ux95oQRdv3N3 tWE2OZelDHUmwD6uKSmtRmQ9 LXOpZwQomM24yMThNHtlXg2ybO hgeDdiBK3eTCKjpcfiYCWepJ0q RTAssJOxlHznPE3qUISeiacu q293OcAuBNW9ATFjzCNkM1PhfQ 6pJpHlLSBgSYLyC0EseTDmBAos R878ODvuLvL1BVPphwXgO4Ur QEPoeGprTbS0s0D0Af8Id1Axwf ojQHL5DVosCFC3WaU2HwRwCuS1 I6JvTiu4VKFiuNeuNT9sX3Ua DSRjzqhjinoycXF1YASjHQKikI 05hNZfDJuvYo3bi8C0s499JFRi JSZduY65Bd6dlEpzRDYibPOE dV1dowupm3hawwgzWgEuRLCkBS m6DHd9DUXmiOafLsSgHYQ7ZcL7 HKP6lVVytP2vvZxorgxbhJ1i Oyc+Z30azW9zKGX0TBC8nqudMV WwiyYlIH39KO46K1VtCkbbjETh bGU+NGMlzeAsbVqoXO2aKbSo k7thj2BbLTjxD3DbXJSyVRhuIe e8PSTcSET5oLE6zF6fIMMoJLdk p6X9bLA1W6JuazBvqf9nw3kc ZENsKTwjB71ptYRwa6Y0JNCncN E4JOIvyVsoXvHppX35Pxm+PGNv dYstv2JcCushj6hxj0dhiDu4 QwCrSMTrloWkaHemUNQ9q5YqJq 61V77eDTorBAJmUYPiQTNhMVCb lQjfnp9qtV1cGk8+PGNvbCB3 lYW4uE1iMZCkDdK4SOecH806Rr OihHKjUhktz2zzu9myqOc7ZkKk RMCggaCvqYahUMF8s0PoGh87 J86mJIcbSNDmGWRkHXIkKZTwzM lwxf2ggO7oZv2+FD7qw9rxpc65 rV84sVP+ZPNfYIR5dUatOIpd GYDmzV5zNEgpIvL9VBJaJnOubR 48jGRbWJgrOe4faUytlJqzIV3w MVWjjkvit816AyBvf2guLXZn eYTuSYjqWXA2N85vl9B8LGXxLV BrXII9fHK3wS4xyHvdgfydaIDd gAofujRoqZibJGfwYSniM531 IHRvcDsnPlBhdGllbnQgTmFtZT n5A2OiUhl5ZPGejAjlCF3zhGGy OQjfVc2twCmmeOtjSR4dXFVm frjlx107AnSfs0duRPDjaCPtBO tpBOX9A25ph5T9JMFrDIErPBL7 gLV6jK9yzPjoeilrmSEhfCue jnUynYadVIsoXEyfF639UJFjnE ohIuTgyzEuHCJshMK4ZO62GX95 nRIxj0P2zVK1H4QrHJZtphgu bxpcmSJ3ITFoHKLiaD58Zp6tbQ xgJw2fCDXhHHS5RWRagYMqB0Vr jW7hKzSqUKEaPKJxC8TwvPKy HQotS071LTylZlI8KGSszpJoP5 DmPGMdlRmcEuO9j4V7Zi3JW2P5 KO24RL06vIOhs4A2pZV9R8Bi VEFpyvomsfmlcAI1VESuEDSlnT 51Dj5jnMjhLt9cBBHcSCK0NSXi jCMaC6WheA9vTjFsXJZoBAPu Z4HbxGFyJKggA491JOsyBvP1NF ZxanRzA4RsDMCdwOziLxC9m9D4 Zx0ZLVs7HV81WL07uNQww0B1 rBM9A9ZwWSNddfiqgevdbAU4IE IjZBImiN25Fo8dzApzTa7oWTLz VFB1VSMkaEReE7AqaW7xKpRl PDGcNEUjO1TbrRQmAAxxQ729ON vyQsI2XFSdgeFdR1RmQCXylYsq WuK7w5Z8Di3UZJBiXX81DFT7 vYP0SH87IT22P3VlWbvrtDTomH U+PHRhYmxlIHdpZHRoPScxMDAl PcQlaTcdLO3vCc1dFFUrAFLw sCyznJChBnCdi8ywBLHvFShvBY 1lsFykF0WlcIC6AWFco3r2Vk39 T76xL0TsaRI+ZAZmuOY1nWY9 eA2wQpOdGoC4IDkbT552UeBkvF FdRsqfx0gko4nvqDq7ErT2FAPn nsDmvDajHHP7u1ErUj31T12n IHdpZHRoPSIxNSUiIHZhbGlnbj 1uvK2eKi7+UXLdhSR7hMY0hA3y VvSoJlE2XXgfM753CoPhwKUp Mbrse5swx8ogiIv1XxRlUNTldm NugFokMXV8p7RzRl03X7QhrPcb x0QjXvk8ur29zZPdx3T3zTC7 P2LkUKXzraspeSFpyAghPB7jDQ QndqclAMTztG7vFQKuX7x9AqSi VrS3NMtaT4XczjV2VTMakBHo PSfbBUS8G45tt9A1LJDfWGSaFG D9lNP8bK0efKyqmvxyzWZjpOax lgJkwRyqTYthQMbfR341HUAq iNhuMRVkpZ7nIQJzuNHecKsrSL 5gESJzaavbVvMZK94YFzdwD2uH WhxSIwAMOA57EO37wSCte6L4 jWC5T5VrCOFjdijqejtqqBK2IS DnFWLtpE91oKKaPRrlWv3vx1F7 z144OLRnTGEdsS11As9ngAwk NGQwpGHXtM3nflmhw3gmbbcjYx ZwZREhMVz8FKe0QHJpeQyjWvHl FFV5IwK4FIB1aNLadS9jlRhw qijsaC9sMuy+TYZpGWHeDSj0MW wvdGQ+ZDSvIWH7eQnyXTimMXAa aE3vXLTlX9o6EcWsHyT3EIox D0ZsKGAbbysoMu30rM2jGjQkZq Z2DQmlO7JnwoK0VXNkyCGuFVva SUH6T84fd5U0JNKpZUCpRCK2 wAN4vU2frOubafzhmJXbbEdgtd VgsEdxNJezVUhqB805NMIjoIon Oyw1HTnoDXCgRA00LZ47pOGc w7F6vUN0T6LsCJEsemsljudozH O7GOEbULLefS76wVNfAKcsIx7d w3K0o621AZIjBZSjpU11Fi3o cYctSIZwqHLWcT7sgosov4flra lnIdCnVVQgYFp5QLy4WPMnpLlb FvKmGRI1XhB1OML2wRQniM2f vJwblmsuzM8fXfk+TWFsZTwvdG Q+FJTkUZY2bJzeMEmzEEGkcV6o MFBkV1u5MiBlMpW0VEjfQ3Id OMFnylyuKp48jY3xPkHcFhF6GV awT9HndiQ1ETOgtXAbWAqxVPJ1 Z25pg7T4PGBpQSHnYBD7nOH5 tU1fgZeaxuewsZJsyTzgaqCuvC jgCPvfWLrwY785SMDhlFjlPrem ZkQJrs0cXK6vCadmoMD+PC90 vq40B1RqDconUwj2LOUnZBZ9sW M8nL9jMOYhLMbja9Z3aPX9P4Bv jhQgue4re7cvBLErLVlkK01v mYGiu6C9RRZyhVW9QTHuoThqYm PhjZ75Pfg+TEUhaZwyy4UgZxqy z7caz3xlgRn6WtZaNABtamPg iScrYQH8m8QtYf04V57nXCofTI FjZFNlEVLoXIWukErfmc8edI0w Ii8+EQNivID4bNU3iK3hAlUz XrK8HJusB445SoEqsXYrTkjnb1 azk5iozZr5IyPqMINrveJdjEnw YXO7m6SaZd35F2TmdQxlf5Yk Wwl0kl14wMUfr4L6fVJ2V1ZjQL XihoqwgJXddMfzHL3uZUGbvrdg CBFzaX0rPVMwI6y1StAfCbP3 GXfiY9CejoJ4IKAjgYLjMMPxuZ CVtC9qiziyg6kppczuBxGdYAAs KHl2CCf3NHDtpYimQbIbRIN9 TlE5BOX1cADytC2vaIhmwqxvnE 9wOyc+FYp4n2wbnBCqFC3oxFS3 WQ71LB08uYOmp9W8kKA2E4Wk OUJxexupylnknAT5INEpNSDnnX 96Kb2bxAklHj2wLRWaLYZ7JGAt uVDgG7FwwL3vTjMpZMUeJBXm Z6XvjFKdYCmvX022VQvdWrG3NB RvtiQnL6FmTKLefQtrSaI5c6I4 Wj3KAM98DQ33HM73zYTud9S0 wXU1E6NnWSEhvespaytnwRR5JF MjPSOqmT75Oe5wxSwbKz0fARPu NOD1YLZmjPZeO9MeoL7iRqQg LQPxKMZnJ7FbzZYtUMdvB124SP kjFlB7RQObsuGeG2InXFTzxFlq IxM9s4R8Qq5YIc84RV94HN98 jVSmy0K7pRB7S9SoHCCbywenhv pgdKS7FHAbTVUsvC07Il3kaCwy Lq5eOGZyYHC8HEBqyZArJ5Tu zX3pNiNdMFSyBNSdM2YekFSbAO stE979SFmuBzR3WTCgsoLhE8Dn XPQvoKmhYiJ8b2V5Ba9SLSvr bsh4E2DzEgpkkVZ+UK50SDSrRO 07pXFqtQFhb6ookEa8BxCaAXGb DGM9wMbiCCprg2PdWXTyK67e bGFw (more content not included)... Normal [facility] Reminderson 01-24-2022 Reminders - From: Miller Shirley MA To: EU - Clinical; Sent: 01/21/2022 14:39:52 EDT Show up: 01/24/2022 08:00:00 EDT Subject: Ambulatory Reminder Reminder/Recall urine culture addressed. NICK Normal [facility] C Urineon 01-23-2022 Bacteria identified Cx [...] Locations R1: This test was performed at: [facility], [address] [place] [address], [address] , [place], Normal [facility] Comment on above: Performed By: #### 2 [id number] ####[facility] [address] [place] [address] Ambulatory Visit Summaryon 0 01-21-2022 Ambulatory Visit Summary TAURUS GARCIA :1945 Visit Date:01/21/2022 Ambulatory Visit Instructions Your Diagnosis Urgency of urination Tests Performed Urnls Dip Stick Auto w/o Microscopy POC 22698 Your Care Team Attending Physician - Autumn [...] MD, Yoko Hair Where: [facility] Pathology Noteon 01-19-2022 Pathology Note [id number]#[id number]:127 Normal [facility] Ambulatory Visit Summaryon 0 01-18-2022 Ambulatory Visit Summary TAURUS GARCIA :1945 Visit Date:01/18/2022 Ambulatory Visit Instructions Your Care Team Attending Physician - Autumn Molina MD, Yoko Hair Primary Care Physician - KOMAL SCHAFFER MD This Is Your Medications List apixaban [...] sleep apnea, adult Pulmonary embolism Radiculopathy Normal [facility] Lab Reportson 01-11-2022 Lab Reports [id number]#[id number]:127 Normal [facility] 01-10-2022 Lab Reports [id number]:127 Normal [facility] PROF CHEM 8 (BAS METB)on Anion gap [Moles/Vol] 12.8 mmol/L Normal [facility] Comment on above: Performed By: #### B MP #### [facility] [address] [address] [address] Chao Garcia Calcium [Mass/Vol] 9.4 mg/dL Normal 8.5-10.1 [facility] Comment on above: Performed By: #### B MP #### [facility] [address] [address] [address] Chao Garcia Chloride [Moles/Vol] 107 mmol/L Normal 98-107 [facility] Comment on above: Performed By: #### B MP #### [facility] [address] [address] [address] Chao Garcia CO2 [Moles/Vol] 27.6 mmol/L Normal 21.0-32.0 [facility] Comment on above: Performed By: #### B MP #### [facility] [address] [address] [address] Chao Garcia Creatinine [Mass/Vol] 1.47 mg/dL Critically high 0.70-1.30 [facility] Comment on above: Performed By: #### B MP #### [facility] [address] [address] [address] Chao Garcia EGFR-AF PANAMANIAN 56 mL/min/1.73m2 Critically low >=60 [facility] Comment on above: Performed By: #### B MP #### [facility] [address] [address] [address] Chao Garcia EGFR-NON AF PANAMANIAN 46 mL/min/1.73m2 Critically low >=60 [facility] Comment on above: Performed By: #### B MP #### [facility] [address] [address] [address] Chao Garcia Glucose [Mass/Vol] 142 mg/dL Critically high 74-106 T [facility] Comment on above: Performed By: #### B MP #### [facility] [address] [address] [address] Chao Garcia Potassium [Moles/Vol] 3.4 mmol/L Critically low 3.5-5.1 [facility] Comment on above: Performed By: #### B MP #### [facility] [address] [address] [address] Chao Garcia Sodium [Moles/Vol] 144 mmol/L Normal 136-145 [facility] Comment on above: Performed By: #### B MP #### [facility] [address] [address] [address] Chao Garcia Urea nitrogen [Mass/Vol] 33.0 mg/dL Critically high 7.0-18.0 [facility] Comment on above: Performed By: #### B MP #### [facility] [address] [address] [address] Chao Garcia Urea nitrogen/Creatinine [Mass ratio] 22.4 mg/mg Normal [facility] Comment on above: Performed By: #### B MP #### [facility] [address] [address] [address] Chao Garcia Consent for Procedure/Surger yon 01-04-2022 Consent for Procedure/Surgery [id number]:12 7 Normal [facility] Ambulatory Visit Summaryon 0 12-27-2021 Ambulatory Visit Summary TAURUS GARCIA :1945 Visit Date:12/27/2021 Ambulatory Visit Instructions Your Diagnosis Gross hematuria BPH (benign prostatic hyperplasia) Bladder mass Your Care Team Attending Physician - Autumn Molina MD, Yoko Hair Primary Care Physician - KOMAL SCHAFFER MD This Is Your Medications List Contact [...] TURBT Where: [facility] [address] [place] [address]- Medications What How Much When Instructions Unchanged [...] serious c (more content not included)... Normal [facility] Patient Educationon 12-28-19 Patient Education Urology [...] these instructions at home: Medicines ? Take zzbr-diy-gnybawr and prescription medicines only as told by [...] the blood stops without treatment. ? Take jjqq-mev-ycyjsoe and prescription medicines only as told by your health care provider. ? Drink enough fluid to keep your urine clear or pale yellow. This information is not intended to replace advice given to you by your health care provider. Make sure you discuss any questions you have with your health care provider. Document Released: 08/07/2006 Document Revised: 01/01/2020 Document Reviewed: 09/09/2017 [employer] Patient Education ? 2019 [employer] Mario [facility] Urology Office/Clinic Noteon 12-27-2021 Urology Office/Clinic Note [...] urine The Urethra was dilated to: _ Citizen [place] with sounds. Specimens Removed: Voided specimen sent [...] on delayed axial image 228. Ordered: Cystourethroscopy [id number] Urology Procedure Order 2. Gross hematuria (R31.0: [...] Full informe (more content not included)... Normal [facility] Comment on above: Result Comment: Elec tronically Signed By: Autumn Molina MD, Yoko Hair\.br\Date and Time Signed: 12/27/21 13:27 EDT\.br\Electronically Co-Signed By: Elvin Hawthorne\.br\Date and Time Co-Signed: 12/27/21 13:19 EDT Lab Reportson 12-16-2021 Lab Reports [id number]:127 Normal [facility] RAD - CT Reporton 12-16-2021 RAD - CT Report [id number]#[id number]:127 Normal [facility] CREATININEon 12-15-2021 Creatinine [Mass/Vol] 1.52 mg/dL Critically high 0.70-1.30 [facility] Comment on above: Performed By: #### C RAFA #### [facility] [address] [address] [address] Chao Garcia EGFR-AF PANAMANIAN 54 mL/min/1.73m2 Critically low >=60 [facility] Comment on above: Performed By: #### C RAFA #### [facility] [address] [address] [address] Chao Garcia EGFR-NON AF PANAMANIAN 45 mL/min/1.73m2 Critically low >=60 [facility] Comment on above: Performed By: #### C RAFA #### [facility] [address] [place] [address] ABD/PELV W CONon 12-16-19 CT ABD/PELV W CON EXAMINATION: CT ABD/ PELV W CON, 12/15/2021 11:26 AM EDT HISTORY: [place] hematuria COMPARISON: None. TECHNIQUE: CT scan of [...] JORDAN RUTLEDGE Date: 2021-12-15 13:10 Normal [facility] Formson 12-15-2021 Forms [id number]:127 Normal [facility] UroVysion Fish and Urine Cyt o ([facility])on 12-13-2021 UVFISH & UC Diagnosis Info Invalid Interpretation Code [facility] Comment on above: Result Comment: A:Ur [...] on: 12/13/2021 13:24:10 Performed By: #### 1 [id number] ####[facility] [address] [place] [address] Patient Educationon 12-08-19 Patient Education Urology Hematuria, [...] these instructions at home: Medicines ? Take dsjw-tnh-dauynwk and prescription medicines only as told by [...] the blood stops without treatment. ? Take txbj-lkj-mghxrrk and prescription medicines only as told by [...] Reviewed: 09/09/2017 Elsevier Patient Education ? 2020 [employer] Normal [facility]ion Fish and Urine Cyt o ([facility])on 12-07-2021 [facility] Method of Extraction Voided Normal [facility] Comment on above: Performed By: #### 1 [id number] ####[facility] [address] [place] [address] [facility] Number of Jars 1 Invalid Interpretation Code [facility] Comment on above: Performed By: #### 1 [id number] ####[facility] [address] [place] [address] [facility] Specimen Urine Normal [facility] Comment on above: Performed By: #### 1 [id number] ####[facility] [address] [place] [address] [facility] Type of Service Global Normal Fish er [facility] Comment on above: Performed By: #### 1 [id number] ####[facility] [address] [place] [address] Urology Office/Clinic Noteon 12-07-2021 Urology Office/Clinic Note Chief Complaint Gross hematuria with moderate bladder outlet obstruction symptoms. Patient is on Eliquis. HPI Staff This is a 76 year old male referred by Dr. Schaffer for hematuria. Pt was last seen by Dr. Leyva 05/03/18. S/P Rezum 02/16/17. Pt. is on Eliquis 5mg. Pain [...] procedure, # 2 tab(s), Refills(s) 0, Pharmacy: [facility] Follow-up With When Contact Information Autumn Molina MD, Yoko Hair, [facility] [address], [place] [phone] Additional Instructions: Patient Education Hematuria, Adult I, Margaret Mitchell, personally scribed for Dr. Leyva on 12/07/2021 10:01:53. . Documentation recorded by the scri (more content not included)... Normal [facility] Comment on above: Result Comment: Elec tronically Signed By: Yoko Leyva Jr., MD\.br\Date and Time Signed: 12/07/21 10:06 [...] signing my name below, I, Joana Kaley POMPA,Raizaibmagdalena, attest that this documentation has been prepared [...] MG Oral TabletTake 1 tablet daily Pyridostigmine [place] 60 MG Oral TabletTAKE 1 TABLET 4 [...] Recorded: 31Aug2021 01:21PM Heart Rate74, L Radial Madwduin967, LUE, Sitting Prlqfyozk25, LUE, Sitting Height5 ft 9 in Yamekn332 lb BMI Dlbuwlhrxu17.62 kg/m2 BSA Calculated2.58 Tobacco Useb) No Fall [...] Basophils (Bld) [#/Vol] 0.05 10*3/uL Normal 0.00-0.20 [facility] Comment on above: Performed By: #### C MP, LIPD, TSH, CBCAD, FT4 #### [facility] [address] [facility] [place] [id number] Basophils/100 WBC (Bld) 0.7 % Normal [facility] Comment on above: Performed By: #### C MP, LIPD, TSH, CBCAD, FT4 #### [facility] [address] [place], [place] [id number] Eosinophils (Bld) [#/Vol] 0.15 10*3/uL Normal 0.02-0.50 [facility] Comment on above: Performed By: #### C MP, LIPD, TSH, CBCAD, FT4 #### [facility] [address] [place], [place] [id number] Eosinophils/100 WBC (Bld) 2.0 % Normal [facility] Comment on above: Performed By: #### C MP, LIPD, TSH, CBCAD, FT4 #### [facility] [address] [place], [place] [id number] Erythrocyte distribution width (RBC) [Ratio] 14.6 % Normal 11.0-15.0 [facility] Comment on above: Performed By: #### C MP, LIPD, TSH, CBCAD, FT4 #### [facility] [address] [place], [place] [id number] Hematocrit (Bld) [Volume fraction] 43.5 % Normal 38.5-50.0 [facility] Comment on above: Performed By: #### C MP, LIPD, TSH, CBCAD, FT4 #### [facility] [address] [place], [place] [id number] Hemoglobin (Bld) [Mass/Vol] 13.8 g/dL Normal 13.0-17.1 [facility] Comment on above: Performed By: #### C MP, LIPD, TSH, CBCAD, FT4 #### [facility] [address] [place], [place] [id number] Lymphocytes (Bld) [#/Vol] 2.5 10*3/uL Normal 0.9-3.9 [facility] Comment on above: Performed By: #### C MP, LIPD, TSH, CBCAD, FT4 #### [facility] [address] [place], [place] [id number] Lymphocytes/100 WBC (Bld) 32.3 % Normal [facility] Comment on above: Performed By: #### C MP, LIPD, TSH, CBCAD, FT4 #### [facility] [address] [place], [place] [id number] MCH (RBC) [Entitic mass] 30.3 pg Normal 27.0-33.0 [facility] Comment on above: Performed By: #### C MP, LIPD, TSH, CBCAD, FT4 #### [facility] [address] [place], [place] [id number] MCHC (RBC) [Mass/Vol] 31.7 g/dL Low 32.0-36.0 [facility] Comment on above: Performed By: #### C MP, LIPD, TSH, CBCAD, FT4 #### [facility] [address] [place], [place] [id number] MCV (RBC) [Entitic vol] 95 fL Normal 80-100 [facility] Comment on above: Performed By: #### C MP, LIPD, TSH, CBCAD, FT4 #### [facility] [address] [place], [place] [id number] Monocytes (Bld) [#/Vol] 0.9 10*3/uL Normal 0.2-0.9 [facility] Comment on above: Performed By: #### C MP, LIPD, TSH, CBCAD, FT4 #### [facility] [address] [place], [place] [id number] Monocytes/100 WBC (Bld) 11.5 % Normal [facility] Comment on above: Performed By: #### C MP, LIPD, TSH, CBCAD, FT4 #### [facility] [address] [place], [place] [id number] Neutrophils (Bld) [#/Vol] 4.1 10*3/uL Normal 1.5-7.8 [facility] Comment on above: Performed By: #### C MP, LIPD, TSH, CBCAD, FT4 #### [facility] [address] [place], [place] [id number] Neutrophils/100 WBC (Bld) 53.0 % Normal [facility] Comment on above: Performed By: #### C MP, LIPD, TSH, CBCAD, FT4 #### [facility] [address] [place], [place] [id number] Platelet mean volume (Bld) [Entitic vol] 10.70 fL Normal 7.50-12.50 [facility] Comment on above: Performed By: #### C MP, LIPD, TSH, CBCAD, FT4 #### [facility] [address] [place], [place] [id number] Platelets (Bld) [#/Vol] 208 10*3/uL Normal 140-400 [facility] Comment on above: Performed By: #### C MP, LIPD, TSH, CBCAD, FT4 #### [facility] [address] [place], [place] [id number] RBC (Bld) [#/Vol] 4.56 10*6/uL Normal 4.20-5.80 [facility] Specialist Comment on above: Performed By: #### C MP, LIPD, TSH, CBCAD, FT4 #### [facility] [address] [place], [place] [id number] RDW-SD 51.6 fL High 37.0-50.0 [facility] Comment on above: Performed By: #### C MP, LIPD, TSH, CBCAD, FT4 #### [facility] [address] [place], [place] [id number] WBC (Bld) [#/Vol] 7.7 10*3/uL Normal 3.8-11.0 [facility] Comment on above: Performed By: #### C MP, LIPD, TSH, CBCAD, FT4 #### [facility] [address] [place], [place] [id number] Comprehensive Metabolic Pane rc 08-18-2021 Albumin [Mass/Vol] 4.2 g/dL Normal 3.6-5.1 [facility] Comment on above: Performed By: #### C MP, LIPD, TSH, CBCAD, FT4 #### [facility] [address] [place], [place] [id number] Albumin/Globulin [Mass ratio] 2.0 {ratio} Normal 1.0-2.5 [facility] Comment on above: Performed By: #### C MP, LIPD, TSH, CBCAD, FT4 #### [facility] [address] [place], [place] [id number] ALP [Catalytic activity/Vol] 69 U/L Normal 40-129 [facility] Comment on above: Performed By: #### C MP, LIPD, TSH, CBCAD, FT4 #### [facility] [address] [place], [place] [id number] ALT [Catalytic activity/Vol] 22 U/L Normal 9-46 [facility] Comment on above: Result Comment: 07/21 Female reference range changed. Performed By: #### C MP, LIPD, TSH, CBCAD, FT4 #### [facility] [address] [place], [place] [id number] Anion gap [Moles/Vol] 18 mmol/L Normal 12-20 [facility] Comment on above: Result Comment: Effe ctive 08/26/2019 reference range changed. Performed By: #### C MP, LIPD, TSH, CBCAD, FT4 #### [facility] [address] [place], [place] [id number] AST [Catalytic activity/Vol] 21 U/L Normal 10-40 [facility] Comment on above: Performed By: #### C MP, LIPD, TSH, CBCAD, FT4 #### [facility] [address] [place], [place] [id number] Bilirubin [Mass/Vol] 0.60 mg/dL Normal 0.30-1.20 [facility] Comment on above: Performed By: #### C MP, LIPD, TSH, CBCAD, FT4 #### [facility] [address] [place], [place] [id number] BUN/CREA 20 Ratio Normal 6-22 [facility] Comment on above: Performed By: #### C MP, LIPD, TSH, CBCAD, FT4 #### [facility] [address] [place], [place] [id number] Calcium [Mass/Vol] 9.3 mg/dL Normal 8.6-10.2 [facility] Comment on above: Performed By: #### C MP, LIPD, TSH, CBCAD, FT4 #### [facility] [address] [place], [place] [id number] Chloride [Moles/Vol] 104 mmol/L Normal 98-107 [facility] Comment on above: Performed By: #### C MP, LIPD, TSH, CBCAD, FT4 #### [facility] [address] [place], [place] [id number] CO2 [Moles/Vol] 25 mmol/L Normal 20-31 [facility] Comment on above: Performed By: #### C MP, LIPD, TSH, CBCAD, FT4 #### [facility] [address] [place], [place] [id number] Creatinine [Mass/Vol] 1.2 mg/dL Normal 0.7-1.4 [facility] Comment on above: Performed By: #### C MP, LIPD, TSH, CBCAD, FT4 #### [facility] [address] [place], [place] [id number] eGFRAA 72 mL/min/1.73m2 Normal >60 [facility] Comment on above: Performed By: #### C MP, LIPD, TSH, CBCAD, FT4 #### [facility] [address] [place], [place] [id number] eGFRNAA 59 mL/min/1.73m2 Low >60 [facility] Comment on above: Performed By: #### C MP, LIPD, TSH, CBCAD, FT4 #### [facility] [address] [place], [place] [id number] Globulin (S) [Mass/Vol] 2.1 g/dL Normal 1.9-3.7 [facility] Comment on above: Performed By: #### C MP, LIPD, TSH, CBCAD, FT4 #### [facility] [address] [place], [place] [id number] Glucose [Mass/Vol] 132 mg/dL High 65-99 [facility] Comment on above: Result Comment: For FASTING Glucose --- ADA reference ranges: Normal 65-99 mg/dl Prediabetes 100-125 Diabetes >/= 126 Performed By: #### C MP, LIPD, TSH, CBCAD, FT4 #### [facility] [address] [place], [place] [id number] Potassium [Moles/Vol] 3.4 mmol/L Low 3.5-5.5 [facility] Specialist Comment on above: Performed By: #### C MP, LIPD, TSH, CBCAD, FT4 #### [facility] [address] [place], [place] [id number] Protein [Mass/Vol] 6.3 g/dL Normal 6.1-8.1 [facility] Comment on above: Performed By: #### C MP, LIPD, TSH, CBCAD, FT4 #### [facility] [address] [place], [place] [id number] Sodium [Moles/Vol] 144 mmol/L Normal 135-146 [facility] Comment on above: Performed By: #### C MP, LIPD, TSH, CBCAD, FT4 #### [facility] [address] [place], [place] [id number] Urea nitrogen [Mass/Vol] 23 mg/dL Normal 7-25 [facility] Comment on above: Performed By: #### C MP, LIPD, TSH, CBCAD, FT4 #### [facility] [address] [place], [place] [id number] Free T4on 08-18-2021 Free T4 [Mass/Vol] 1.26 ng/dL Normal 0.80-1.80 [facility] Comment on above: Performed By: #### C MP, LIPD, TSH, CBCAD, FT4 #### [facility] [address] [place], [place] [id number] Lipid Panelon 08-18-2021 Cholesterol [Mass/Vol] 170 mg/dL Normal 125-200 [facility] Comment on above: Result Comment: Low risk < 200mg/dL Borderline risk 201-239 mg/dl High risk > or equal to 240 Performed By: #### C MP, LIPD, TSH, CBCAD, FT4 #### [facility] [address] [place], [place] [id number] Cholesterol in HDL [Mass/Vol] 70 mg/dL Normal >40 [facility] Comment on above: Result Comment: High Cardiovascular Risk HDL <40 mg/dL Low Cardiovascular Risk HDL > or equal to 60 mg/dl Performed By: #### C MP, LIPD, TSH, CBCAD, FT4 #### [facility] [address] [place], [place] [id number] Cholesterol in LDL [Mass/Vol] 78 mg/dL Normal [facility] Specialist Comment on above: Result Comment: LDL ATP III CLASSIFICATION LDL less than 100 mg/dl Optimal LDL 100-129 mg/dl Near or above optimal LDL 130-159 Borderline high LDL 160-189 High LDL greater than 189 mg/dl Very High Performed By: #### C MP, LIPD, TSH, CBCAD, FT4 #### [facility] [address] [place], [place] [id number] Cholesterol in VLDL [Mass/Vol] 22 mg/dL Normal [facility] Comment on above: Performed By: #### C MP, LIPD, TSH, CBCAD, FT4 #### [facility] [address] [place], [place] [id number] Cholesterol.total/Chol esterol in HDL [Mass ratio] 2 {ratio} Normal [facility] Specialist Comment on above: Performed By: #### C MP, LIPD, TSH, CBCAD, FT4 #### [facility] [address] [place], [place] [id number] Triglyceride [Mass/Vol] 110 mg/dL Normal 30-150 [facility] Comment on above: Result Comment: TRIG ATPIII CLASSIFICATIONS TRIG less than 150 mg/dl Normal TRIG 150-199 mg/dl Borderline High TRIG 200-500 mg/dl High TRIG greather than 500 mg/dl Very High Performed By: #### C MP, LIPD, TSH, CBCAD, FT4 #### [facility] [address] [place], [place] [id number] PSA SCREEN (MEDICARE)on 07-22 TPSA 1.270 ng/mL Normal <4.000 [facility] Comment on above: Result Comment: PSA Test Method: ECLIA/Racquel e 601 Performed By: #### P SA #### [facility] [address] [place], [place] [id number] TSHon 08-18-2021 TSH 4.190 uIU/mL Normal 0.400-4.50 0 [facility] Comment on above: Performed By: #### C MP, LIPD, TSH, CBCAD, FT4 #### [facility] [address] [place] [id number] [facility]23 SARS-CoV-2 (COVID-19) RNA JAYDE+probe Ql (Unsp spec) Detected Critically abnormal NOT DETECTED [facility] Comment on above: Result Comment: This test is not yet approved or cleared by the [place] FDA. When there are no FDA-approved or cleared tests available, and other criteria are met, FDA can make tests available under an emergency access mechanism called an Emergency Use Authorization (EUA). The EUA for this test is supported by the [place] of Health and Human Service's (HHS's) declaration [...] longer be used). Performed By: #### C VDTB #### [facility] [address] [place], [place] [address] Jalyn Noble US JO ANN DOP LEG [...] JORDAN RUTLEDGE Date: 2021-02-09 16:35 Normal [facility] Vital Signs Date Time Vital Sign Value Performing Clinician Facility 04-01-2025 11:37-0400 Body height 172.7 cm Leela Bocanegra BRIM SETTER Work Phone: [facility] 04-01-2025 11:37-0400 Body mass index (BMI) [Ratio] 47.14 kg/m2 Leela Daljit BRIM SETTER Work Phone: [facility] 04-01-2025 11:37-0400 Body weight 140.62 kg Leela Uvalda BRIM SETTER Work Phone: [facility] 04-01-2025 11:37-0400 Diastolic blood pressure 68 mm[Hg] Leela Daljit BRIM SETTER Work Phone: [facility] 04-01-2025 11:37-0400 Heart rate 80 /min Leela Uvalda BRIM SETTER Work Phone: [facility] 04-01-2025 11:37-0400 Respiratory rate 17 /min Leela Uvalda BRIM SETTER Work Phone: [facility] 04-01-2025 11:37-0400 SaO2% (BldA) [Mass fraction] 94 % Leela Daljit BRIM SETTER Work Phone: [facility] 04-01-2025 11:37-0400 Systolic blood pressure 138 mm[Hg] Leela Daljit BRIM SETTER Work Phone: [facility] 03-18-2025 10:09-0400 Body height 172.72 cm Komla Schaffer II Work Phone: [facility] 03-18-2025 10:09-0400 Body mass index (BMI) [Ratio] 46.7 kg/m2 Komal Schaffer II Work Phone: [facility] 03-18-2025 10:09-0400 Body weight 139.4 kg Komal Schaffer II Work Phone: [facility] 02-18-2025 11:45-0400 Body height 172.7 cm Leela Uvalda BRIM SETTER Work Phone: [facility] 02-18-2025 11:45-0400 Body mass index (BMI) [Ratio] 46.38 kg/m2 Leela Uvalda BRIM SETTER Work Phone: [facility] 02-18-2025 11:45-0400 Body weight 138.35 kg Leela Bocanegra BRIM SETTER Work Phone: [facility] 02-18-2025 11:45-0400 Diastolic blood pressure 78 mm[Hg] Leela Bocanegra BRIM SETTER Work Phone: [facility] 02-18-2025 11:45-0400 Heart rate 84 /min Leela Bocanegra BRIM SETTER Work Phone: [facility] 02-18-2025 11:45-0400 Respiratory rate 18 /min Leela Bocanegra BRIM SETTER Work Phone: [facility] 02-18-2025 11:45-0400 SaO2% (BldA) [Mass fraction] 94 % Leela Bocanegra BRIM SETTER Work Phone: [facility] 02-18-2025 11:45-0400 Systolic blood pressure 124 mm[Hg] Leela Bocanegra BRIM SETTER Work Phone: [facility] 02-14-2025 15:29-0400 Body temperature 98.6 [degF] Komal Schaffer II Work Phone: [facility] 02-14-2025 15:29-0400 Diastolic blood pressure 64 mm[Hg] Komal Schaffer II Work Phone: [facility] 02-14-2025 15:29-0400 Heart rate 90 /min Komal Schaffer II Work Phone: [facility] 02-14-2025 15:29-0400 Respiratory rate 16 /min Komal Schaffer II Work Phone: [facility] 02-14-2025 15:29-0400 SaO2% (BldA) [Mass fraction] 95 % Komal Schaffer II Work Phone: [facility] 02-14-2025 15:29-0400 Systolic blood pressure 128 mm[Hg] Komal Schaffer II Work Phone: [facility] 02-14-2025 05:44-0400 Body weight 136.6 kg Komal Schaffer II Work Phone: [facility] 02-13-2025 20:43-0400 Body height 172.72 cm Komal Schaffer II Work Phone: [facility] 02-13-2025 20:19-0400 Body temperature 98.9 [degF] Komal Schaffer II Work Phone: [facility] 02-13-2025 20:19-0400 Diastolic blood pressure 80 mm[Hg] Komal Schaffer II Work Phone: [facility] 02-13-2025 20:19-0400 Heart rate 85 /min Komal Schaffer II Work Phone: [facility] 02-13-2025 20:19-0400 Respiratory rate 21 /min Komal Schaffer II Work Phone: [facility] 02-13-2025 20:19-0400 SaO2% (BldA) [Mass fraction] 95 % Komal Schaffer II Work Phone: [facility] 02-13-2025 20:19-0400 Systolic blood pressure 178 mm[Hg] Komal Schaffer II Work Phone: [facility] 02-13-2025 09:25-0400 Body height 172.72 cm Komal Schaffer II Work Phone: [facility] 02-13-2025 09:25-0400 Body weight 138.34 kg Komal Schaffer II Work Phone: [facility] 01-30-2025 15:04-0400 Body height 172.7 cm Real Og DPM Work Phone: [facility] 01-30-2025 15:04-0400 Body mass index (BMI) [Ratio] 45.92 kg/m2 Real Og DPM Work Phone: [facility] 01-30-2025 15:04-0400 Body weight 136.99 kg Real Og DPM Work Phone: [facility] 01-30-2025 15:04-0400 Respiratory rate 18 /min Real Og DPM Work Phone: [facility] 01-15-2025 09:59-0400 Body height 172.7 cm Willy Leyva SENSOR TECHNICIAN-TIRE CARE MANAGER Work Phone: [facility] 01-15-2025 09:59-0400 Body mass index (BMI) [Ratio] 46.83 kg/m2 Willy Leyva SENSOR TECHNICIAN-TIRE CARE MANAGER Work Phone: [facility] 01-15-2025 09:59-0400 Body weight 139.71 kg Willy Leyva SENSOR TECHNICIAN-TIRE CARE MANAGER Work Phone: [facility] 01-15-2025 09:59-0400 Diastolic blood pressure 56 mm[Hg] Willy Leyva SENSOR TECHNICIAN-TIRE CARE MANAGER Work Phone: [facility] 01-15-2025 09:59-0400 Heart rate 84 /min Willy Leyva SENSOR TECHNICIAN-TIRE CARE MANAGER Work Phone: [facility] 01-15-2025 09:59-0400 Systolic blood pressure 122 mm[Hg] Willy Leyva SENSOR TECHNICIAN-TIRE CARE MANAGER Work Phone: [facility] 01-06-2025 12:33-0400 Body mass index (BMI) [Ratio] 46.04 kg/m2 Tevinopher Chip DO Work Phone: [facility] 01-06-2025 12:33-0400 Body weight 137.35 kg Christopher Chip DO Work Phone: [facility] 01-06-2025 12:33-0400 Diastolic blood pressure 84 mm[Hg] Christopher Chip DO Work Phone: [facility] 01-06-2025 12:33-0400 Heart rate 106 /min Christopher Chip DO Work Phone: [facility] 01-06-2025 12:33-0400 SaO2% (BldA) [Mass fraction] 94 % Christopher Chip DO Work Phone: [facility] 01-06-2025 12:33-0400 Systolic blood pressure 150 mm[Hg] Stanley Saunders DO Work Phone: [facility] 01-02-2025 16:24-0400 Body height 172.7 cm Real Brown DPM Work Phone: [facility] 01-02-2025 16:24-0400 Body mass index (BMI) [Ratio] 46.38 kg/m2 Real Brown DPM Work Phone: [facility] 01-02-2025 16:24-0400 Body weight 138.35 kg Real Brown DPM Work Phone: [facility] 01-02-2025 16:24-0400 Respiratory rate 18 /min Real Brown DPM Work Phone: [facility] 12-12-2024 13:44-0400 Body height 172.7 cm Real Brown DPM Work Phone: [facility] 12-12-2024 13:44-0400 Body mass index (BMI) [Ratio] 46.38 kg/m2 Real Brown DPM Work Phone: [facility] 12-12-2024 13:44-0400 Body weight 138.35 kg Real Brown DPM Work Phone: [facility] 12-12-2024 13:44-0400 Respiratory rate 16 /min Real Brown DPM Work Phone: [facility] 12-05-2024 14:41-0400 Body height 172.7 cm Real Brown DPM Work Phone: [facility] 12-05-2024 14:41-0400 Body mass index (BMI) [Ratio] 46.38 kg/m2 Real Brown DPM Work Phone: [facility] 12-05-2024 14:41-0400 Body weight 138.35 kg Real Brown DPM Work Phone: [facility] 12-05-2024 14:41-0400 Respiratory rate 18 /min Real Og DPM Work Phone: [facility] 12-05-2024 13:59-0400 Body height 172.7 cm Leela Daljit BRIM SETTER Work Phone: [facility] 12-05-2024 13:59-0400 Body mass index (BMI) [Ratio] 46.44 kg/m2 Leela Catalanvely BRIM SETTER Work Phone: [facility] 12-05-2024 13:59-0400 Body weight 138.53 kg Leela Uvalda BRIM SETTER Work Phone: [facility] 12-05-2024 13:59-0400 Diastolic blood pressure 78 mm[Hg] Leela Daljit BRIM SETTER Work Phone: [facility] 12-05-2024 13:59-0400 Heart rate 95 /min Leela Bocanegra BRIM SETTER Work Phone: [facility] 12-05-2024 13:59-0400 Respiratory rate 17 /min Leela Daljit BRIM SETTER Work Phone: [facility] 12-05-2024 13:59-0400 SaO2% (BldA) [Mass fraction] 95 % Leela Uvalda BRIM SETTER Work Phone: [facility] 12-05-2024 13:59-0400 Systolic blood pressure 132 mm[Hg] Leela Bocanegra BRIM SETTER Work Phone: [facility] 11-21-2024 14:45-0400 Body height 172.7 cm Real Og DPM Work Phone: [facility] 11-21-2024 14:45-0400 Body mass index (BMI) [Ratio] 48.05 kg/m2 Real Og DPM Work Phone: [facility] 11-21-2024 14:45-0400 Body weight 143.34 kg Real Og DPM Work Phone: [facility] 11-21-2024 14:45-0400 Respiratory rate 18 /min Real Og DPM Work Phone: [facility] 11-04-2024 11:39-0400 Body height 172.7 cm Willy Leyva SENSOR TECHNICIAN-TIRE CARE MANAGER Work Phone: [facility] 11-04-2024 11:39-0400 Body mass index (BMI) [Ratio] 47.74 kg/m2 Willy Leyva SENSOR TECHNICIAN-TIRE CARE MANAGER Work Phone: [facility] 11-04-2024 11:39-0400 Body weight 142.43 kg Willy Leyva SENSOR TECHNICIAN-TIRE CARE MANAGER Work Phone: [facility] 11-04-2024 11:39-0400 Diastolic blood pressure 84 mm[Hg] Willy Leyva SENSOR TECHNICIAN-TIRE CARE MANAGER Work Phone: [facility] 11-04-2024 11:39-0400 Heart rate 64 /min Willy Leyva SENSOR TECHNICIAN-TIRE CARE MANAGER Work Phone: [facility] 11-04-2024 11:39-0400 Systolic blood pressure 166 mm[Hg] Willy Leyva SENSOR TECHNICIAN-TIRE CARE MANAGER Work Phone: [facility] 10-11-2024 15:02-0500 Body height 172.7 cm [facility] 10-11-2024 15:02-0500 Body mass index (BMI) [Ratio] 47.14 kg/m2 [facility] 10-11-2024 15:02-0500 Body weight 140.62 kg [facility] 10-11-2024 15:02-0500 Diastolic blood pressure 80 mm[Hg] [facility] 10-11-2024 15:02-0500 Heart rate 63 /min [facility] 10-11-2024 15:02-0500 Systolic blood pressure 148 mm[Hg] [facility] 10:03-0500 Body height 172.7 cm Leela Bocanegra NP Work Phone: [facility] 10-09-2024 10:03-0500 Body mass index (BMI) [Ratio] 47.35 kg/m2 Leela Bocanegra BRIM SETTER Work Phone: [facility] 10-09-2024 10:03-0500 Body weight 141.25 kg Leela Bocanegra BRIM SETTER Work Phone: [facility] 10-09-2024 10:03-0500 Diastolic blood pressure 82 mm[Hg] Leela Bocanegra BRIM SETTER Work Phone: [facility] 10-09-2024 10:03-0500 Heart rate 46 /min Leela Bocanegra BRIM SETTER Work Phone: [facility] 10-09-2024 10:03-0500 Respiratory rate 17 /min Leela Bocanegra BRIM SETTER Work Phone: [facility] 10-09-2024 10:03-0500 SaO2% (BldA) [Mass fraction] 96 % Leela Bocanegra BRIM SETTER Work Phone: [facility] 10-09-2024 10:03-0500 Systolic blood pressure 186 mm[Hg] Leela Bocanegra BRIM SETTER Work Phone: [facility] 09-17-2024 14:47-0500 Body height 172.7 cm Aide Hemmer PA Work Phone: [facility] 09-17-2024 14:47-0500 Body mass index (BMI) [Ratio] 47.59 kg/m2 Aide Hemmer PA Work Phone: [facility] 09-17-2024 14:47-0500 Body weight 141.98 kg Aide Hemmer PA Work Phone: [facility] 09-17-2024 14:47-0500 Diastolic blood pressure 62 mm[Hg] Aide Hemmer PA Work Phone: [facility] 09-17-2024 14:47-0500 Heart rate 83 /min Aide Hemmer PA Work Phone: [facility] 09-17-2024 14:47-0500 Respiratory rate 18 /min Aide Hemmer PA Work Phone: [facility] 09-17-2024 14:47-0500 SaO2% (BldA) [Mass fraction] 93 % Aide LINN Work Phone: [facility] 09-17-2024 14:47-0500 Systolic blood pressure 106 mm[Hg] Aide LINN Work Phone: [facility] 09-13-2024 11:19-0500 Body temperature 98.5 [degF] Komal Schaffer II Work Phone: [facility] 09-13-2024 11:19-0500 Diastolic blood pressure 65 mm[Hg] Komal Schaffer II Work Phone: [facility] 09-13-2024 11:19-0500 Heart rate 76 /min Komal Schaffer II Work Phone: [facility] 09-13-2024 11:19-0500 Respiratory rate 16 /min Komal Schaffer II Work Phone: [facility] 09-13-2024 11:19-0500 SaO2% (BldA) [Mass fraction] 94 % Komal Schaffer II Work Phone: [facility] 09-13-2024 11:19-0500 Systolic blood pressure 147 mm[Hg] Komal Schaffer II Work Phone: [facility] 09-13-2024 06:00-0500 Body weight 137.5 kg Komal Schaffer II Work Phone: [facility] 09-12-2024 15:45-0500 Body height 172.72 cm Komal Schaffer II Work Phone: [facility] 09-12-2024 08:26-0500 Inhaled oxygen flow rate 2 L/min Komal Schaffer II Work Phone: [facility] 09-11-2024 16:44-0500 Diastolic blood pressure 81 mm[Hg] Komal Schaffer II Work Phone: [facility] 09-11-2024 16:44-0500 Heart rate 66 /min Komal Schaffer II Work Phone: [facility] 09-11-2024 16:44-0500 Inhaled oxygen flow rate 2 L/min Komal Schaffer II Work Phone: [facility] 09-11-2024 16:44-0500 Respiratory rate 22 /min Komal Schaffer II Work Phone: [facility] 09-11-2024 16:44-0500 SaO2% (BldA) [Mass fraction] 96 % Komal Schaffer II Work Phone: [facility] 09-11-2024 16:44-0500 Systolic blood pressure 196 mm[Hg] Komal Schaffer II Work Phone: [facility] 09-11-2024 09:52-0500 Body height 172.72 cm Komalescobar Schaffer II Work Phone: [facility] 09-11-2024 09:52-0500 Body temperature 98.2 [degF] Komalescobar Schaffer II Work Phone: [facility] 09-11-2024 09:52-0500 Body weight 139.7 kg Komal Schaffer II Work Phone: [facility] 07-31-2024 12:00-0500 Body temperature 98.2 [degF] Komal Schaffer II Work Phone: [facility] 07-31-2024 12:00-0500 Diastolic blood pressure 62 mm[Hg] Komal Schaffer II Work Phone: [facility] 07-31-2024 12:00-0500 Heart rate 60 /min Komalescobar Schaffer II Work Phone: [facility] 07-31-2024 12:00-0500 Respiratory rate 16 /min Komal Schaffer II Work Phone: [facility] 07-31-2024 12:00-0500 SaO2% (BldA) [Mass fraction] 95 % Komal Schaffer II Work Phone: [facility] 07-31-2024 12:00-0500 Systolic blood pressure 128 mm[Hg] Komal Schaffer II Work Phone: [facility] 07-31-2024 05:53-0500 Body weight 136.3 kg Komal Schaffer II Work Phone: [facility] 07-28-2024 18:13-0500 Body height 172.72 cm Komal Schaffer II Work Phone: [facility] 07-24-2024 08:30-0500 Body height 172.7 cm Leela Bocanegra BRIM SETTER Work Phone: [facility] 07-24-2024 08:30-0500 Body mass index (BMI) [Ratio] 46.5 kg/m2 Leela Bocanegra BRIM SETTER Work Phone: [facility] 07-24-2024 08:30-0500 Body weight 138.71 kg Leela Bocanegra BRIM SETTER Work Phone: [facility] 07-24-2024 08:30-0500 Diastolic blood pressure 82 mm[Hg] Leela Bocanegra BRIM SETTER Work Phone: [facility] 07-24-2024 08:30-0500 Heart rate 63 /min Leela oBcanegra BRIM SETTER Work Phone: [facility] 07-24-2024 08:30-0500 Respiratory rate 18 /min Leela Bocanegra BRIM SETTER Work Phone: [facility] 07-24-2024 08:30-0500 SaO2% (BldA) [Mass fraction] 93 % Leela Bocanegra BRIM SETTER Work Phone: [facility] 07-24-2024 08:30-0500 Systolic blood pressure 122 mm[Hg] Leela Bocanegra BRIM SETTER Work Phone: [facility] 07-12-2024 12:00-0500 Body temperature 98.6 [degF] Komal Schaffer II Work Phone: [facility] 07-12-2024 12:00-0500 Diastolic blood pressure 79 mm[Hg] Komal Schaffer II Work Phone: [facility] 07-12-2024 12:00-0500 Heart rate 76 /min Komal Schaffer II Work Phone: [facility] 07-12-2024 12:00-0500 Respiratory rate 20 /min Komal Schaffer II Work Phone: [facility] 07-12-2024 12:00-0500 SaO2% (BldA) [Mass fraction] 99 % Komal Schaffer II Work Phone: [facility] 07-12-2024 12:00-0500 Systolic blood pressure 171 mm[Hg] Komal Schaffer II Work Phone: [facility] 07-12-2024 06:00-0500 Body weight 137.4 kg Komal Schaffer II Work Phone: [facility] 07-10-2024 14:42-0500 Body height 172.72 cm Komal Schaffer II Work Phone: [facility] 07-10-2024 08:28-0500 Inhaled oxygen flow rate 2 L/min Komal Schaffer II Work Phone: [facility] 07-09-2024 20:09-0500 Diastolic blood pressure 74 mm[Hg] Komal Schaffer II Work Phone: [facility] 07-09-2024 20:09-0500 Heart rate 57 /min Komal Schaffer II Work Phone: [facility] 07-09-2024 20:09-0500 Respiratory rate 18 /min Komal Schaffer II Work Phone: [facility] 07-09-2024 20:09-0500 SaO2% (BldA) [Mass fraction] 95 % Komal Schaffer II Work Phone: [facility] 07-09-2024 20:09-0500 Systolic blood pressure 168 mm[Hg] Komal Schaffer II Work Phone: [facility] 07-09-2024 18:53-0500 Body height 172.72 cm Komal Schaffer II Work Phone: [facility] 07-09-2024 18:53-0500 Body weight 139.7 kg Komal Schaffer II Work Phone: [facility] 07-09-2024 15:52-0500 Body temperature 98.9 [degF] Komalescobar Schaffer II Work Phone: [facility] 07-04-2024 05:48-0500 Diastolic blood pressure 75 mm[Hg] Komal Schaffer II Work Phone: [facility] 07-04-2024 05:48-0500 Systolic blood pressure 133 mm[Hg] Komal Schaffer II Work Phone: [facility] 07-04-2024 05:05-0500 Body weight 140.3 kg Komalescobar Schaffer II Work Phone: [facility] 07-04-2024 05:00-0500 Body temperature 97.4 [degF] Komalescobar Schaffer II Work Phone: [facility] 07-04-2024 05:00-0500 Heart rate 64 /min Komalescobar Schaffer II Work Phone: [facility] 07-04-2024 05:00-0500 Respiratory rate 16 /min Komalescobar Schaffer II Work Phone: [facility] 07-04-2024 05:00-0500 SaO2% (BldA) [Mass fraction] 95 % Komalescobar Schaffer II Work Phone: [facility] 07-03-2024 07:59-0500 Body height 172.72 cm Komal Schaffer II Work Phone: [facility] 06-22-2024 11:25-0400 Diastolic blood pressure 71 mm[Hg] II Komal Schaffer Work Phone: [facility] 06-22-2024 11:25-0400 Heart rate 54 /min II Komal Schaffer Work Phone: [facility] 06-22-2024 11:25-0400 Respiratory rate 18 /min II Komal Schaffer Work Phone: [facility] 06-22-2024 11:25-0400 SaO2% (BldA) [Mass fraction] 97 % II Komal Schaffer Work Phone: [facility] 06-22-2024 11:25-0400 Systolic blood pressure 112 mm[Hg] II Komal Schaffer Work Phone: [facility] 06-22-2024 08:00-0400 Body temperature 97.4 [degF] II Komal Schaffer Work Phone: [facility] 06-22-2024 05:35-0400 Body weight 140.6 kg II Komal Schaffer Work Phone: [facility] 06-20-2024 14:56-0400 Body height 172.72 cm II Komal Schaffer Work Phone: [facility] 06-19-2024 23:54-0400 Inhaled oxygen concentration 21 % II Komal Schaffer Work Phone: [facility] 06-19-2024 14:41-0400 Body height 172.72 cm II Komal Schaffer Work Phone: [facility] 06-19-2024 14:41-0400 Body temperature 98 [degF] II Komal Schaffer Work Phone: [facility] 06-19-2024 14:41-0400 Body weight 143.6 kg II Komal Schaffer Work Phone: [facility] 06-19-2024 14:41-0400 Diastolic blood pressure 74 mm[Hg] II Komal Schaffer Work Phone: [facility] 06-19-2024 14:41-0400 Heart rate 59 /min II Komal Schaffer Work Phone: [facility] 06-19-2024 14:41-0400 Respiratory rate 16 /min II Komal Schaffer Work Phone: [facility] 06-19-2024 14:41-0400 SaO2% (BldA) [Mass fraction] 96 % II Komal Schaffer Work Phone: [facility] 06-19-2024 14:41-0400 Systolic blood pressure 175 mm[Hg] II Komal Schaffer Work Phone: [facility] 06-13-2024 14:10-0400 Body height 172.7 cm Real Og DPM Work Phone: [facility] 06-13-2024 14:10-0400 Body mass index (BMI) [Ratio] 49.42 kg/m2 Real Og DPM Work Phone: [facility] 06-13-2024 14:10-0400 Body weight 147.42 kg Real Og DPM Work Phone: [facility] 06-13-2024 14:10-0400 Diastolic blood pressure 79 mm[Hg] Real Og DPM Work Phone: [facility] 06-13-2024 14:10-0400 Heart rate 84 /min Real Earle DPM Work Phone: [facility] 06-13-2024 14:10-0400 Systolic blood pressure 126 mm[Hg] Real Og DPM Work Phone: [facility] 05-27-2024 12:55-0400 Body mass index (BMI) [Ratio] 49.42 kg/m2 Christopher Chip DO Work Phone: [facility] 05-27-2024 12:55-0400 Body weight 147.42 kg Christopher Chip DO Work Phone: [facility] 05-27-2024 12:55-0400 Diastolic blood pressure 85 mm[Hg] Christopher Chip DO Work Phone: [facility] 05-27-2024 12:55-0400 Heart rate 75 /min Christopher Chip DO Work Phone: [facility] 05-27-2024 12:55-0400 SaO2% (BldA) [Mass fraction] 90 % Stanley Saunders DO Work Phone: [facility] 05-27-2024 12:55-0400 Systolic blood pressure 137 mm[Hg] Stanley Saunders DO Work Phone: [facility] 02-12-2024 17:05-0400 Diastolic blood pressure 69 mm[Hg] II Komal Schaffer Work Phone: [facility] 02-12-2024 17:05-0400 Heart rate 53 /min II Komal Schaffer Work Phone: [facility] 02-12-2024 17:05-0400 Respiratory rate 22 /min II Komal Schaffer Work Phone: [facility] 02-12-2024 17:05-0400 SaO2% (BldA) [Mass fraction] 98 % II Komal Schaffer Work Phone: [facility] 02-12-2024 17:05-0400 Systolic blood pressure 156 mm[Hg] II Komal Schaffer Work Phone: [facility] 02-12-2024 13:33-0400 Body height 172.72 cm II Komal Schaffer Work Phone: [facility] 02-12-2024 13:33-0400 Body temperature 98.1 [degF] II Komalescobar Schaffer Work Phone: [facility] 02-12-2024 13:33-0400 Body weight 142.3 kg II Komalescobar Schaffer Work Phone: [facility] 10-05-2023 13:16-0500 Body height 177.8 cm Komal Schaffer MD Work Phone: [facility] 10-05-2023 13:16-0500 Body mass index (BMI) [Ratio] 45.2 kg/m2 Komal Schaffer MD Work Phone: [facility] 10-05-2023 13:16-0500 Body weight 142.88 kg Komal Schaffer MD Work Phone: [facility] 10-05-2023 13:16-0500 Diastolic blood pressure 82 mm[Hg] Komal Schaffer MD Work Phone: [facility] 10-05-2023 13:16-0500 Heart rate 58 /min Komal Schaffer MD Work Phone: [facility] 10-05-2023 13:16-0500 SaO2% (BldA) [Mass fraction] 96 % Komal Schaffer MD Work Phone: [facility] 10-05-2023 13:16-0500 Systolic blood pressure 134 mm[Hg] Komal Schaffer MD Work Phone: [facility] 09-20-2023 12:13-0500 Body height 172.7 cm Baltazar Hoover DO Work Phone: [facility] 09-20-2023 12:13-0500 Body mass index (BMI) [Ratio] 47.59 kg/m2 Baltazar Hoover DO Work Phone: [facility] 09-20-2023 12:13-0500 Body weight 141.98 kg Baltazar Hoover DO Work Phone: [facility] 09-20-2023 12:13-0500 Diastolic blood pressure 74 mm[Hg] Baltazar Hoover DO Work Phone: [facility] 09-20-2023 12:13-0500 Heart rate 53 /min Baltazar Hoover DO Work Phone: [facility] 09-20-2023 12:13-0500 Systolic blood pressure 130 mm[Hg] Baltazar Hoover DO Work Phone: [facility] 06-10-2023 05:00-0400 Body temperature 97.2 [degF] II Komal Schaffer Work Phone: [facility] 06-10-2023 05:00-0400 Diastolic blood pressure 70 mm[Hg] II Komal Schaffer Work Phone: [facility] 06-10-2023 05:00-0400 Heart rate 57 /min II Komal Schaffer Work Phone: [facility] 06-10-2023 05:00-0400 Respiratory rate 18 /min II Komal Schaffer Work Phone: [facility] 06-10-2023 05:00-0400 SaO2% (BldA) [Mass fraction] 95 % II Komal Schaffer Work Phone: [facility] 06-10-2023 05:00-0400 Systolic blood pressure 145 mm[Hg] II Komal Schaffer Work Phone: [facility] 06-06-2023 12:31-0400 Body height 172.72 cm II Komal Schaffer Work Phone: [facility] 06-04-2023 06:00-0400 Body weight 138.9 kg II Komal Schaffer Work Phone: [facility] 05-25-2023 00:00-0400 Inhaled oxygen flow rate 2 L/min II Komal Schaffer Work Phone: [facility] 05-21-2023 13:47-0400 Body temperature 98.4 [degF] II Komal Schaffer Work Phone: [facility] 05-21-2023 13:47-0400 Diastolic blood pressure 82 mm[Hg] II Komal Schaffer Work Phone: [facility] 05-21-2023 13:47-0400 Heart rate 60 /min II Komal Schaffer Work Phone: [facility] 05-21-2023 13:47-0400 Inhaled oxygen flow rate 2 L/min II Komal Schaffer Work Phone: [facility] 05-21-2023 13:47-0400 Respiratory rate 20 /min II Komal Schaffer Work Phone: [facility] 05-21-2023 13:47-0400 SaO2% (BldA) [Mass fraction] 94 % II Komal Schaffer Work Phone: [facility] 05-21-2023 13:47-0400 Systolic blood pressure 145 mm[Hg] II Komal Schaffer Work Phone: [facility] 05-21-2023 05:35-0400 Body weight 145 kg II Komal Schaffer Work Phone: [facility] 05-18-2023 12:18-0400 Body height 175.26 cm II Komal Schaffer Work Phone: [facility] 05-15-2023 18:00-0400 Inhaled oxygen concentration 4 % II Komal Schaffer Work Phone: [facility] 10-18-2022 08:30-0500 Body temperature 97.59 [degF] Honorio Vuong MD Work Phone: [facility] 10-18-2022 08:30-0500 Diastolic blood pressure 81 mm[Hg] Honorio Vuong MD Work Phone: [facility] 10-18-2022 08:30-0500 Heart rate 75 /min Honorio Vuong MD Work Phone: [facility] 10-18-2022 08:30-0500 Respiratory rate 20 /min Honorio Vuong MD Work Phone: [facility] 10-18-2022 08:30-0500 SaO2% (BldA) [Mass fraction] 95 % Honorio Vuong MD Work Phone: [facility] 10-18-2022 08:30-0500 Systolic blood pressure 150 mm[Hg] Honorio Vuong MD Work Phone: [facility] 10-17-2022 06:00-0500 Body mass index (BMI) [Ratio] 48.42 kg/m2 Honorio Vuong MD Work Phone: [facility] 10-17-2022 06:00-0500 Body weight 144.44 kg Honorio Vuong MD Work Phone: [facility] 10-15-2022 19:51-0500 Body height 172.7 cm Honorio Vuong MD Work Phone: [facility] 09-07-2022 11:23-0500 Body height 172.72 cm Willytoni Grijalvakwasi Leyva SENSOR TECHNICIAN-TIRE CARE MANAGER Work Phone: [facility] [address] DO Work Phone: 09-07-2022 11:23-0500 Body mass index (BMI) [Ratio] 49.72 kg/m2 Willy Talon Leyva SENSOR TECHNICIAN-TIRE CARE MANAGER Work Phone: [facility] [address] DO Work Phone: 09-07-2022 11:23-0500 Body surface area Derived from formula 2.52 m2 Willy Leyva SENSOR TECHNICIAN-TIRE CARE MANAGER Work Phone: [facility] [address] DO Work Phone: 09-07-2022 11:23-0500 Body weight 148.33 kg Willytoni Grijalvakwasi Leyva SENSOR TECHNICIAN-TIRE CARE MANAGER Work Phone: [facility] [address] DO Work Phone: 09-07-2022 11:23-0500 Diastolic blood pressure 78 mm[Hg] Willytoni Grijalvakwasi Leyva SENSOR TECHNICIAN-TIRE CARE MANAGER Work Phone: [facility] [address] DO Work Phone: 09-07-2022 11:23-0500 Heart rate 64 /min Willy Hanleykwasi Leyva SENSOR TECHNICIAN-TIRE CARE MANAGER Work Phone: [facility] [address] DO Work Phone: 09-07-2022 11:23-0500 Systolic blood pressure 122 mm[Hg] Willy Leyva SENSOR TECHNICIAN-TIRE CARE MANAGER Work Phone: [facility] [address] DO Work Phone: 05-06-2022 12:45-0400 Body weight 148.19 kg Celso Peñaloza MD, PhD Work Phone: [facility] 05-06-2022 12:45-0400 Diastolic blood pressure 55 mm[Hg] Celso Peñaloza MD, PhD Work Phone: [facility] 05-06-2022 12:45-0400 Heart rate 67 /min Celso Peñaloza MD, PhD Work Phone: [facility] 05-06-2022 12:45-0400 Systolic blood pressure 132 mm[Hg] Celso Peñaloza MD, PhD Work Phone: [facility] 03-29-2022 11:04-0400 Blood Pressure Location Yoko Leyva Jr. [facility] 03-29-2022 11:04-0400 Diastolic blood pressure 80 mm[Hg] Yoko Leyva Jr. [facility] 03-29-2022 11:04-0400 Heart rate 108 /min Yoko Leyva Jr. [facility] 03-29-2022 11:04-0400 Respiratory rate 16 /min Yoko Leyva Jr. [facility] 03-29-2022 11:04-0400 Systolic blood pressure 126 mm[Hg] Yoko Leyva Jr. [facility] 03-03-2022 12:59-0400 Blood Pressure Location Yoko Leyva Jr. [facility] 03-03-2022 12:59-0400 Body temperature 97.88 [degF] Yoko Leyva Jr. [facility] 03-03-2022 12:59-0400 BP/Pulse Patient Position Yoko Leyva Jr. [facility] 03-03-2022 12:59-0400 Diastolic blood pressure 60 mm[Hg] Yoko Leyva Jr. [facility] 03-03-2022 12:59-0400 Heart rate 62 /min Yoko Leyva Jr. [facility] 03-03-2022 12:59-0400 Mean blood pressure 74 mm[Hg] Yoko Leyva Jr. [facility] 03-03-2022 12:59-0400 Respiratory rate 16 /min Yoko Leyva Jr. [facility] 03-03-2022 12:59-0400 SaO2% (BldA) [Mass fraction] 97 % Yoko Leyva Jr. [facility] 03-03-2022 12:59-0400 Systolic blood pressure 100 mm[Hg] Yoko Leyva Jr. [facility] 03-03-2022 12:04-0400 Body temperature 98.06 [degF] Yoko Leyva Jr. [facility] 03-03-2022 12:04-0400 Diastolic blood pressure 60 mm[Hg] Yoko Leyva Jr. [facility] 03-03-2022 12:04-0400 Heart rate 63 /min Yoko Leyva Jr. [facility] 03-03-2022 12:04-0400 Mean blood pressure 76 mm[Hg] Yoko Leyva Jr. [facility] 03-03-2022 12:04-0400 SaO2% (BldA) [Mass fraction] 94 % Yoko Leyva Jr. [facility] 03-03-2022 12:04-0400 Systolic blood pressure 106 mm[Hg] Yoko Leyva Jr. [facility] 03-03-2022 11:50-0400 Blood Pressure Location Yoko Leyva Jr. [facility] 03-03-2022 11:50-0400 Body temperature 97.52 [degF] Yoko Leyva Jr. [facility] 03-03-2022 11:50-0400 Diastolic blood pressure 70 mm[Hg] Yoko Leyva Jr. [facility] 03-03-2022 11:50-0400 Heart rate 58 /min Yoko Leyva Jr. [facility] 03-03-2022 11:50-0400 Respiratory rate 10 /min Yoko Leyva Jr. [facility] 03-03-2022 11:50-0400 SaO2% (BldA) [Mass fraction] 95 % Yoko Leyva Jr. [facility] 03-03-2022 11:50-0400 Systolic blood pressure 141 mm[Hg] Yoko Leyva Jr. [facility] 03-03-2022 11:40-0400 Blood Pressure Location Yoko Leyva Jr. [facility] 03-03-2022 11:40-0400 Respiratory rate 17 /min Yoko Leyva Jr. [facility] 03-03-2022 11:35-0400 Respiratory rate 11 /min Yoko Leyva Jr. [facility] 03-03-2022 11:25-0400 Body temperature 97.16 [degF] Yoko Leyva Jr. [facility] 03-03-2022 11:20-0400 Respiratory rate 26 /min Yoko Leyva Jr. [facility] 03-03-2022 11:15-0400 Respiratory rate 19 /min Yoko Leyva Jr[facility] 03-03-2022 08:04-0400 Mean blood pressure 86 mm[Hg] Yoko Leyva Jr. [facility] 03-03-2022 08:04-0400 Body temperature 98.42 [degF] Yoko Leyva Jr. [facility] 03-03-2022 08:04-0400 Heart rate 68 /min Yoko Leyva Jr. [facility] 02-17-2022 13:43-0400 Blood Pressure Location Yoko Leyva Jr. [facility] 02-17-2022 13:43-0400 Diastolic blood pressure 69 mm[Hg] Yoko Leyva Jr. [facility] 02-17-2022 13:43-0400 Systolic blood pressure 162 mm[Hg] Yoko Leyva Jr. [facility] 02-17-2022 13:30-0400 Blood Pressure Location Yoko Leyva Jr. [facility] 02-17-2022 13:30-0400 BP/Pulse Patient Position Yoko Leyva Jr. [facility] 02-17-2022 13:30-0400 Diastolic blood pressure 52 mm[Hg] Yoko Leyva Jr. [facility] 02-17-2022 13:30-0400 Heart rate 68 /min Yoko Leyva Jr. [facility] 02-17-2022 13:30-0400 Mean blood pressure 84 mm[Hg] [facility] [facility]17[facility]22 13:30-0400 Respiratory rate 24 /min Yoko Leyva Jr. [facility] 02-17-2022 13:30-0400 SaO2% (BldA) [Mass fraction] 92 % Yoko Leyva Jr[facility] 02-17-2022 13:30-0400 Systolic blood pressure 149 mm[Hg] Yoko Leyva Jr[facility] 02-17-2022 13:30-0400 Body temperature 99.32 [degF] Yoko Leyva Jr[facility] 02-01-2022 11:14-0400 Blood Pressure Location Yoko Leyva Jr. [facility] 02-01-2022 11:14-0400 Diastolic blood pressure 43 mm[Hg] Yoko Leyva Jr. [facility] 02-01-2022 11:14-0400 Heart rate 72 /min Yoko Leyva Jr. [facility] 02-01-2022 11:14-0400 Respiratory rate 16 /min Yoko Leyva Jr. [facility] 02-01-2022 11:14-0400 Systolic blood pressure 133 mm[Hg] Yoko Leyva Jr. [facility] 12-27-2021 12:42-0400 Blood Pressure Location Yoko Leyva Jr. [facility] 12-27-2021 12:42-0400 Diastolic blood pressure 65 mm[Hg] Yoko Leyva Jr[facility] 12-27-2021 12:42-0400 Heart rate 68 /min Yoko Leyva Jr[facility] 12-27-2021 12:42-0400 Systolic blood pressure 115 mm[Hg] Yoko Leyva Jr[facility] Encounters Encounter Date Encounter Type Care Provider Facility Start: 04-01-2025 End: 04-01-2025 Bamboo flowsheet Leela Bocanegra NP Work Phone: [facility] Start: 04-01-2025 End: 04-01-2025 Bamboo flowsheet Leela Bocanegra BRIM SETTER Work Phone: [facility] Start: 04-01-2025 End: 04-01-2025 Office outpatient visit 15 minutes Leela Bocanegra NP Work Phone: [facility] Comment on above: Gross hematuria (Michelle lissett Dx); Lumbosacral spondylosis without myelopathy Start: 04-01-2025 End: 04-01-2025 Refill Leela Bocanegra BRIM SETTER Work Phone: [facility] Comment on above: Pain Start: 03-18-2025 End: 03-18-2025 ambulatory Komal Schaffer II Work Phone: [facility] Work Phone: Start: 03-18-2025 End: 03-18-2025 Patient encounter procedure Gucci Jacques MD -[facility] Neurosurgery Work Phone: Start: 02-26-2025 End: 02-26-2025 Clinisync Result Encounter Leela Bocanegra BRIM SETTER Work Phone: [facility] Department Unsolicited Start: 02-26-2025 End: 02-26-2025 Clinisync Result Encounter Leela Bocanegra BRIM SETTER Work Phone: [facility] Unsolicited Start: 02-24-2025 End: 02-24-2025 Clinisync Result Encounter Generic External Data Provider [facility] Unsolicited Start: 02-24-2025 End: 02-24-2025 Clinisync Result Encounter Generic External Data Provider [facility] External Department Unsolicited Start: 02-18-2025 End: 02-18-2025 Bamboo flowsheet Leela Bocanegra BRIM SETTER Work Phone: [facility] Start: 02-18-2025 End: 02-18-2025 Bamboo flowsheet Leela Bocanegra BRIM SETTER Work Phone: [facility] Start: 02-18-2025 End: 02-18-2025 Telephone encounter Leela Bocanegra BRIM SETTER Work Phone: [facility] Start: 02-18-2025 End: 02-18-2025 ambulatory LEELA BOCANEGRA Not Available Start: 02-18-2025 End: 02-18-2025 Office outpatient visit 25 minutes Leela Bocanegra BRIM SETTER Work Phone: [facility] Comment on above: Cellulitis of right lower extremity (Primary Dx); Muscle pain; Trigger middle finger of right hand; Pain Start: 02-13-2025 End: 02-14-2025 ambulatory Jamel Packer Facility:[facility] Start: 02-13-2025 Anticoagulant drug monitoring Jamel Packer -[facility] Neurology Work Phone: Start: 02-13-2025 Evaluation and management of inpatient Jarret Ceja MD -[facility] [place] Work Phone: Start: 02-13-2025 observation encounter Komal kelly II Work Phone: 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 (Primary Dx); Venous insufficiency Start: 01-30-2025 End: 01-30-2025 ambulatory REAL OG Not Available Start: 01-30-2025 End: 01-30-2025 Bamboo flowsheet Real Og DPM Work Phone: [facility] Start: 01-30-2025 End: 01-30-2025 Bamboo flowsheet Real Og DPM Work Phone: [facility] Start: 01-27-2025 End: 01-27-2025 ambulatory France Wyman MD Facility: [facility] Start: 01-15-2025 End: 01-15-2025 Office outpatient visit 15 minutes Willy Wong Otto SENSOR TECHNICIAN-TIRE CARE MANAGER Work Phone: [facility] Comment on above: BMI 45.0-49.9, adult (Multi) (Primary Dx); Localized edema Start: 01-15-2025 End: 01-15-2025 ambulatory [facility] Ambulatory Start: 01-06-2025 End: 01-06-2025 Bamboo flowsheet Christopher Chip DO Work Phone: [facility] Start: 01-06-2025 End: 01-06-2025 Bamboo flowsheet Christopher Chip DO Work Phone: [facility] Start: 01-06-2025 End: 01-06-2025 ambulatory STANLEY SAUNDERS Not Available Start: 01-06-2025 End: 01-06-2025 Office outpatient visit 25 minutes Stanley Saunders DO Work Phone: [facility] Comment on above: Myasthenia gravis (P rimary Dx); Class 3 severe obesity due to excess calories with serious comorbidity and body mass index (BMI) of 45.0 to 49.9 in adult; Ulnar neuropathy of both upper extremities Start: 01-02-2025 End: 01-02-2025 Office outpatient visit 25 minutes Real Og DPM Work Phone: [facility] Comment on above: Laceration of lesser toe of left foot without foreign body present, nail damage status unspecified, initial encounter (Primary Dx); Closed nondisplaced fracture of distal phalanx of left great toe, initial encounter; Venous insufficiency Start: 01-02-2025 End: 01-02-2025 ambulatory REAL OG Not Available Start: 01-02-2025 End: 01-02-2025 Bamboo flowsheet Real Og DPM Work Phone: [facility] Start: 01-02-2025 End: 01-02-2025 Bamboo flowsheet Real Og DPM Work Phone: [facility] Start: 12-30-2024 End: 12-30-2024 ambulatory France Wyman MD Facility:[facility] Start: 12-12-2024 End: 12-12-2024 Bamboo flowsheet Real Og DPM Work Phone: [facility] Start: 12-12-2024 End: 12-12-2024 Bamboo flowsheet Real Og DPM Work Phone: [facility] Start: 12-12-2024 End: 12-12-2024 Office outpatient visit 25 minutes Real Og DPM Work Phone: [facility] Comment on above: Laceration of lesser toe of left foot without foreign body present, nail damage status unspecified, initial encounter (Primary Dx); Closed nondisplaced fracture of distal phalanx of left great toe, initial encounter Start: 12-12-2024 End: 12-12-2024 ambulatory REAL OG Not Available Start: 12-05-2024 End: 12-05-2024 Bamboo flowsheet Leela Bocanegra NP Work Phone: [facility] Start: 12-05-2024 End: 12-05-2024 Bamboo flowsheet Leela Bocanegra BRIM SETTER Work Phone: [facility] Start: 12-05-2024 End: 12-05-2024 Office outpatient visit 25 minutes Real Og DPM Work Phone: [facility] Comment on above: Laceration of lesser toe of left foot without foreign body present, nail damage status unspecified, initial encounter (Primary Dx); Closed nondisplaced fracture of distal phalanx of left great toe, initial encounter Fall, subsequent enc ounter (Primary Dx); Decreased mobility; Weakness; Pain Start: 12-05-2024 End: 12-05-2024 ambulatory REAL OG Not Available Start: 11-21-2024 End: 11-21-2024 Patient encounter procedure Real Og DPM Work Phone: [facility] Comment on above: 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 (Primary Dx); Venous insufficiency Start: 11-21-2024 End: 11-21-2024 ambulatory REAL OG Not Available Start: 11-21-2024 End: 11-21-2024 Bamboo flowsheet Real Og DPM Work Phone: [facility] Start: 11-21-2024 End: 11-21-2024 Bamboo flowsheet Real Og DPM Work Phone: [facility] Start: 11-11-2024 End: 11-11-2024 ambulatory [facility] Ambulatory Start: 11-04-2024 End: 11-04-2024 Office outpatient visit 25 minutes Willy Wong Otto SENSOR TECHNICIAN-TIRE CARE MANAGER Work Phone: [facility] Comment on above: Localized edema (Michelle lissett Dx); Essential hypertension; BMI 45.0-49.9, adult (Multi); Paroxysmal atrial fibrillation (Multi) Start: 11-04-2024 End: 11-04-2024 ambulatory [facility] Ambulatory Start: 10-29-2024 End: 10-29-2024 ambulatory LEELA BOCANEGRA Not Available Start: 10-28-2024 End: 10-28-2024 ambulatory France Wyman MD Facility:[facility] Start: 10-22-2024 End: 10-22-2024 Clinisync Result Encounter Generic External Data Provider [facility] External Department Unsolicited Start: 10-22-2024 End: 10-22-2024 Clinisync Result Encounter Generic External Data Provider [facility] External Department Unsolicited Start: 10-21-2024 End: 10-21-2024 ambulatory France Wyman MD Facility:[facility] Start: 10-15-2024 End: 10-15-2024 Bamboo flowsama Tamayo BRIM SETTER Work Phone: [facility] Start: 10-15-2024 End: 10-15-2024 Bamboo flowsheet Mookie Tamayo BRIM SETTER Work Phone: [facility] Start: 10-15-2024 End: 10-15-2024 ambulatory MOOKIE TAMAYO Not Available Start: 10-11-2024 End: 10-11-2024 Professional / ancillary services management Jimena Rice [facility] Comment on above: Paroxysmal atrial fi brillation (Multi) (Primary Dx); High risk medication use Start: 10-11-2024 End: 10-11-2024 ambulatory [facility] Ambulatory Start: 10-09-2024 End: 10-09-2024 Bamboo flowsheet Leela Bocanegra BRIM SETTER Work Phone: [facility] Start: 10-09-2024 End: 10-09-2024 Bamboo flowsheet Leela Bocanegra BRIM SETTER Work Phone: [facility] Start: 10-09-2024 End: 10-09-2024 Office outpatient visit 25 minutes Leela Bocanegra BRIM SETTER Work Phone: [facility] Comment on above: Benign essential hyp ertension (CMS/HCC) (Primary Dx); Yeast dermatitis; Bradycardia Start: 10-09-2024 End: 10-09-2024 ambulatory LEELA BOCANEGRA Not Available Start: 10-07-2024 End: 10-07-2024 ambulatory France Wyman MD Facility: [facility] Start: 09-24-2024 End: 09-24-2024 ambulatory [facility] Ambulatory Start: 09-18-2024 End: 09-18-2024 Telephone encounter Salma Monday CASTING ROOM HELPER Work Phone: [facility] Start: 09-17-2024 End: 09-17-2024 ambulatory AIDE GARCIA Not Available Start: 09-17-2024 End: 09-17-2024 Office outpatient visit 25 minutes Aide Garcia PA Work Phone: [facility] Comment on above: Myasthenia gravis (C MS/HCC) (Primary Dx); Type 2 diabetes mellitus with diabetic neuropathy, without long-term current use of insulin (CMS/HCC); Myasthenic crisis (CMS/HCC); Generalized weakness; Benign essential hypertension (CMS/HCC); Localized edema; Impaired mobility and activities of daily living; Dyspnea on exertion; Malignant neoplasm of overlapping sites of bladder (CMS/HCC); Chronic respiratory failure with hypoxia (CMS/HCC); Type 2 diabetes mellitus with diabetic chronic kidney disease (CMS/HCC); Chronic kidney disease, stage 2 (mild); Paroxysmal atrial fibrillation (CMS/HCC); Morbid (severe) obesity due to excess calories (CMS/HCC); Body mass index (BMI) 45.0-49.9, adult (CMS/HCC) Start: 09-16-2024 End: 09-16-2024 ambulatory France Wyman MD Facility: [facility] Start: 09-11-2024 Evaluation and management of inpatient Komal Schaffer II Work Phone: [facility] Work Phone: Start: 09-11-2024 End: 09-13-2024 observation encounter Komal Schaffer II Work Phone: [facility] Work Phone: Start: 09-11-2024 End: 09-13-2024 Orders Only Leela Bocanegra BRIM SETTER Work Phone: [facility] Comment on above: Myasthenia gravis (C MS/HCC) Start: 09-11-2024 End: 09-13-2024 Komal Schaffer II Work Phone: [facility] [place] [facility] Work Phone: Start: 09-09-2024 End: 09-09-2024 ambulatory France Wyman MD Facility:[facility] Start: 07-31-2024 Komal Schaffer I I Work Phone: [facility] Work Phone: Start: 07-30-2024 Komal Schaffer I I Work Phone: [facility] Neurosurgery Work Phone: Start: 07-28-2024 End: 07-31-2024 Evaluation and management of inpatient Gucci Jacques Facility:[facility] Start: 07-28-2024 End: 07-31-2024 Komal Schaffer II Work Phone: [facility] Work Phone: Start: 07-24-2024 End: 07-24-2024 Bamboo flowsheet Leela Bocanegra BRIM SETTER Work Phone: [facility] Start: 07-24-2024 End: 07-24-2024 Bamboo flowsheet Leela Bocanegra BRIM SETTER Work Phone: [facility] Start: 07-24-2024 End: 07-24-2024 Office outpatient visit 25 minutes Leela Bocanegra BRIM SETTER Work Phone: [facility] Comment on above: Localized edema (Michelle lissett Dx); Stage 3a chronic kidney disease (HCC) ([facility]/HCC); Lumbosacral spondylosis without myelopathy; Acute non-recurrent sinusitis of other sinus Start: 07-24-2024 End: 07-24-2024 ambulatory LEELA BOCANEGRA Not Available Start: 07-15-2024 End: 07-17-2024 Dilia Schaffer MD Work Phone: [facility] Comment on above: Cervical stenosis of spinal canal Start: 07-09-2024 End: 07-12-2024 Evaluation and management of inpatient Komal Schaffer II Work Phone: [facility] [place] Work Phone: Start: 07-09-2024 End: 07-12-2024 Komal Schaffer II Work Phone: [facility] Work Phone: Start: 07-01-2024 Non-patient / Non-visit Komal Schaffer II Work Phone: [facility] Work Phone: Start: 07-01-2024 Komalescobar Schaffer I I Work Phone: [facility] Work Phone: Start: 06-24-2024 Non-patient / Non-visit Komal Schaffer II Work Phone: [facility] Work Phone: Start: 06-24-2024 Komal Schaffer I I Work Phone: [facility] Work Phone: Start: 06-22-2024 Non-patient / Non-visit Komal Schaffer II Work Phone: [facility] Work Phone: Start: 06-22-2024 End: 07-04-2024 Komal Schaffer II Work Phone: [facility] [place] Work Phone: Start: 06-22-2024 End: 07-04-2024 Evaluation and management of inpatient II Komal Schaffer Work Phone: [facility] Work Phone: Start: 06-21-2024 Non-patient / Non-visit II Kenroy Schaffer Work Phone: [facility] Work Phone: Start: 06-21-2024 Komal Schaffer I I Work Phone: [facility] Work Phone: Start: 06-19-2024 Non-patient / Non-visit II Kenroy Schaffer Work Phone: [facility] Work Phone: Start: 06-19-2024 Komal Schaffer I I Work Phone: [facility] Work Phone: Start: 06-19-2024 End: 06-22-2024 Komal Schaffer II Work Phone: [facility] [place] Work Phone: Start: 06-19-2024 End: 06-22-2024 Evaluation and management of inpatient II Komal Schaffer Work Phone: [facility] [place] [facility] Work Phone: Start: 06-13-2024 End: 06-13-2024 Bamboo flowsheet Real Og DPM Work Phone: [facility] Start: 06-13-2024 End: 06-13-2024 Bamboo flowsheet Real Og DPM Work Phone: [facility] Start: 06-13-2024 End: 06-13-2024 Patient encounter procedure Real Og DPM Work Phone: [facility] Comment on above: 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 (Primary Dx); Venous insufficiency Start: 06-13-2024 End: 06-13-2024 ambulatory REAL Butler EARLE Not Available Start: 06-10-2024 End: 06-10-2024 ambulatory France Wyman MD Facility:[facility] Start: 05-27-2024 End: 05-27-2024 Bamboo flowsheet Stanley Saunders DO [facility] Start: 05-27-2024 End: 05-27-2024 Bamboo flowsheet Stanley Saunders DO [facility] Start: 05-27-2024 End: 05-27-2024 Office outpatient visit 25 minutes Stanley Saunders DO Work Phone: [facility] Comment on above: Myasthenia gravis (C MS/HCC) (Primary Dx); Class 3 severe obesity due to excess calories with serious comorbidity and body mass index (BMI) of 45.0 to 49.9 in adult (CMS/HCC) Start: 05-27-2024 End: 05-27-2024 ambulatory TEVINMANUEL WINNETT Not Available Start: 02-12-2024 End: 02-12-2024 Emergency department patient visit II Komal Schaffer Work Phone: [facility]-Emergency Room Work Phone: Start: 10-11-2023 End: 10-11-2023 ambulatory Ivan Barnhart Facility:[facility] Start: 10-05-2023 End: 10-05-2023 Assay of hemosiderin, quant Komal Schaffer MD Work Phone: [facility] Work Phone: Start: 10-05-2023 End: 10-05-2023 Patient encounter procedure Komal Schaffer MD Work Phone: [facility] Comment on above: Routine general medi nabila [...] gravis without (acute) exacerbation (G70.00); Atherosclerosis of [place] artery of both lower extremities with intermittent claudication (CMS/HCC); Morbid (severe) obesity due to excess calories (E66.01); Body mass index [BMI] 45.0-49.9, adult (Z68.42) Start: 10-04-2023 Bamboo flowsheet Alemvaldemar Sampson P TA [facility] Start: 10-04-2023 Bamboo flowsheet Alem Ferrarosteffen P TA [facility] Start: 10-04-2023 End: 10-04-2023 ambulatory Alem Tatsteffen ICT BUSINESS ANALYST [facility] Comment on above: Bilateral leg weakne ss (Primary Dx); Difficulty walking; Right leg pain Start: 09-28-2023 End: 09-28-2023 ambulatory Anderson Ray ICT BUSINESS ANALYST [facility] Comment on above: Bilateral leg weakne ss (Primary Dx); Difficulty walking; Right leg pain Start: 09-25-2023 Telephone encounter Komal kelly MD Work Phone: [facility] Start: 09-21-2023 End: 09-21-2023 ambulatory Anderson Ray ICT BUSINESS ANALYST [facility] Comment on above: Bilateral leg weakne ss (Primary Dx); Difficulty walking; Right leg pain Start: 09-20-2023 End: 09-20-2023 Office outpatient visit 25 minutes Baltazar Hoover DO Work Phone: [facility] Comment on above: Paroxysmal atrial fi brillation (CMS/HCC); Pulmonary embolism, unspecified chronicity, unspecified pulmonary embolism type, unspecified whether acute cor pulmonale present (CMS/HCC); Myasthenia gravis (CMS/HCC); High risk medication use; Essential hypertension; Mixed hyperlipidemia; Morbid obesity with BMI of 45.0-49.9, adult (CMS/HCC) Start: 05-21-2023 End: 06-10-2023 Evaluation and management of inpatient II Komal Schaffer Work Phone: [facility] [place] Work Phone: Start: 05-19-[address] Komal Schaffer II Facility:[id number] Start: 05-18-[address] Komal Schaffer II Facility:[id number] Start: 05-16-[address] Komal Schaffer II Facility:[id number] Start: 05-10-2023 End: 05-21-2023 Evaluation and management of inpatient II Komal Schaffer Work Phone: [facility] Work Phone: Start: 03-09-2023 End: 03-09-2023 ambulatory II Komal Schaffer Work Phone: [facility] Work Phone: Start: 03-09-2023 End: 03-09-2023 Departed Referred II Komal Schaffer Work Phone: [facility] Start: 10-15-2022 End: 10-18-2022 Evaluation and management of inpatient KOMAL Yakelin SARBJIT [facility] Start: 10-15-2022 End: 10-18-2022 Evaluation and management of inpatient Honorio Vuong MD Work Phone: [facility] Start: 09-07-2022 Office outpatient vi sit 25 minutes Willy Leyva SENSOR TECHNICIAN-TIRE CARE MANAGER Work Phone: [facility] [address] DO Work Phone: Start: 09-07-2022 Patient encounter procedure Willy Leyva SENSOR TECHNICIAN-TIRE CARE MANAGER Work Phone: [facility] 250 DO Work Phone: Start: 09-07-[address] Komal Schaffer II Facility: Start: 08-30-2022 End: 08-30-2022 ambulatory II Komal Schaffer Work Phone: [facility] Work Phone: Start: 08-30-2022 End: 08-30-2022 Departed Referred II Komal Schaffer Work Phone: [facility] Start: 06-28-2022 End: 06-28-2022 ambulatory II Komal Schaffer Work Phone: [facility] Work Phone: Start: 06-28-2022 End: 06-28-2022 Departed Referred II Komal Schaffer Work Phone: [facility] Start: 06-14-2022 End: 06-14-2022 ambulatory II Komal Schaffer Work Phone: [facility] Work Phone: Start: 06-14-2022 End: 06-14-2022 Departed Referred II Komal Schaffer Work Phone: [facility] Start: 05-06-2022 ambulatory Celso Peñaloza MD , PhD Work Phone: Urology Start: 05-06-2022 End: 05-06-2022 Patient encounter procedure Celso Peñaloza MD, PhD Work Phone: Urology Comment on above: Malignant neoplasm o f overlapping sites of bladder (HCC) (Primary Dx) Start: 03-29-2022 End: 03-30-2022 ambulatory Yoko Leyva Facility:[facility] Start: 03-29-2022 End: 03-29-2022 Patient encounter procedure Yoko Leyva Jr. [facility] Start: 03-29-2022 ambulatory Yoko Leyva Facility:[facility] Start: 03-03-2022 End: 03-03-2022 ambulatory Yoko Leyva Facility:[facility] Start: 03-03-2022 End: 03-03-2022 Admission to same day surgery center Yoko Leyva Jr. [facility] Start: 02-17-2022 End: 02-18-2022 ambulatory Yoko Leyva Facility:[facility] Start: 02-17-2022 End: 02-17-2022 Patient encounter procedure Yoko Leyva Jr. [facility] Start: 02-01-2022 End: 02-02-2022 ambulatory Yoko Leyva Facility:[facility] Start: 02-01-2022 End: 02-01-2022 Patient encounter procedure Yoko Leyva Jr. [facility] Start: 01-21-2022 End: 01-22-2022 ambulatory MASHA LEY Facility:[facility] Start: 01-21-2022 End: 01-21-2022 Lab Drop off MASHA LEY [facility] Start: 01-21-2022 End: 01-21-2022 Patient encounter procedure Yoko Leyva Jr. [facility] Start: 01-18-2022 End: 01-19-2022 ambulatory Yoko Leyva Facility:[facility] Start: 01-18-2022 End: 01-18-2022 Patient encounter procedure Yoko Leyva Jr. [facility] Start: 01-12-2022 End: 01-13-[address] YOKO LEYVA JR Facility:[facility] Start: 01-11-2022 Encounter for preprocedural cardiovascular examination DR YOKO LEYVA JR [facility] Start: 01-11-2022 Encounter for preprocedural laboratory examination DR YOKO LEYVA JR [facility] Start: 01-08-[address] YOKO LEYVA JR Fa cility:[facility] Start: 01-05-2022 End: 01-06-[address] YOKO LEYVA JR Facility:[facility] Start: 01-05-2022 End: 01-06-2022 Encounter for preprocedural cardiovascular examination DR YOKO LEYVA JR Facility:[facility] Start: 12-27-2021 End: 12-28-2021 ambulatory Yoko Leyva [facility] Start: 12-27-2021 End: 12-27-2021 Patient encounter procedure Yoko Leyva Jr. [facility] Start: 12-15-2021 End: 12-16-[address] YOKO LEYVA JR Facility:[facility] Start: 12-07-2021 ambulatory Yoko Leyva Facility:[facility] Start: 12-07-2021 End: 12-08-2021 ambulatory Yoko Leyva [facility] Start: 12-07-2021 End: 12-07-2021 Patient encounter procedure Yoko Leyva Jr. [facility] Start: 11-05-2021 ambulatory Yoko Leyva Facility:[facility] Start: 05-25-2021 End: 05-25-[address] KOMAL SCHAFFER Facility:[facility] Start: 04-19-2021 End: 04-20-[address] KOMAL SCHAFFER Facility:[facility] Start: 02-09-2021 End: 02-10-2021 ambulatory LEELA BOCANEGRA Facility:[facility] Start: 01-11-2018 Ambulatory BALTAZAR Castle ity:[id number] Start: 01-08-2018 Ambulatory OLIVIA HALL Facility :[id number] Imaging result normal Willy Leyva SENSOR TECHNICIAN-TIRE CARE MANAGER Work Phone: Formerly [facility] 250 DO Work Phone: Procedures Date Procedure Procedure Detail Performing Clinician Start: 04-01-2025 Urnls dip stick/tabl et rgnt non-auto w/o micrscp Leela Bocanegra BRIM SETTER Work Phone: Start: 02-26-2025 ALL [facility] Leela M S hively BRIM SETTER Work Phone: Start: 02-26-2025 [facility] Leela Rascon hively BRIM SETTER Work Phone: Start: 02-24-2025 MR LUMBAR SPINE WO CON Generic External Data Provider Start: 02-24-2025 XR LUMBAR SPINE 6V W BENDING Generic External Data Provider Start: 02-13-2025 CT angiography of head Komal Schaffer II Work Phone: Start: 02-13-2025 CT angiography of ne ck vessels Komal Schaffer II Work Phone: Start: 02-13-2025 CT of head without contrast Komalescobar Schaffer II Work Phone: Start: 02-13-2025 Plain chest X-ray Uche Schaffer II Work Phone: Start: 12-12-2024 Radex foot complete minimum 3 views Real Og DPM Work Phone: Start: 10-22-2024 Radiologic exam knee complete 4/more views Generic External Data Provider Start: 09-17-2024 Hemoglobin glycosylated a1c Aide LINN Work Phone: Start: 09-11-2024 End: 09-11-2024 Viral nucleic acid assay Komal Schaffer II Work Phone: Start: 09-11-2024 Plain chest X-ray Uche Schaffer II Work Phone: Start: 07-30-2024 Duplex scan of lower limb veins Komalescobar Schaffer II Work Phone: Start: 07-29-2024 CT of lumbar spine w ithout contrast Komalescobar Schaffer II Work Phone: Start: 07-28-2024 Plain chest X-ray Uche Schaffer II Work Phone: Start: 07-28-2024 CT cervical spine wi thout contrast Komalescoabr Schaffer II Work Phone: Start: 07-28-2024 CT of facial bones w ithout contrast Komlaescobar Schaffer II Work Phone: Start: 07-28-2024 CT of head without contrast Komal Schaffer II Work Phone: Start: 07-09-2024 CT angiography of head Komal Schaffer II Work Phone: Start: 07-09-2024 CT angiography of ne ck vessels Komal Schaffer II Work Phone: Start: 07-09-2024 CT of head without contrast Komal Schaffer II Work Phone: Start: 07-09-2024 Plain chest X-ray Uche Schaffer II Work Phone: Start: 06-19-2024 Plain chest X-ray II Amador Schaffer Work Phone: Start: 02-12-2024 Plain chest X-ray II Amador Schaffer Work Phone: Start: 09-25-2023 Lipid 1996 panel - S [place] or Plasma Jimena Rice [facility] Start: 09-20-2023 Ecg routine ecg w/le ast 12 lds w/i&r Baltazar Hoover DO Work Phone: Start: 05-25-2023 Duplex scan of lower limb veins II Komal Schaffer Work Phone: Start: 05-16-2023 Bacterial ID (NA Mul tiplex Assay) II Komal Schaffer Work Phone: Start: 05-16-2023 Blood culture for ba cteria, including anaerobic screen II Komal Schaffer Work Phone: Start: 05-16-2023 Urine culture II Komal Schaffer Work Phone: Start: 05-15-2023 Plain chest X-ray II Amador Schaffer Work Phone: Start: 05-14-2023 Plain chest X-ray II Amador Schaffer Work Phone: Start: 05-13-2023 Plain chest X-ray II Amador Schaffer Work Phone: Start: 05-12-2023 Aerobic microbial culture II Komal Schaffer Work Phone: Start: 05-12-2023 Investigation of tra nsfusion reaction II Komal Schaffer Work Phone: Start: 05-12-2023 Plain chest X-ray II Amador Schaffer Work Phone: Start: 05-11-2023 Plain chest X-ray II Amador Schaffer Work Phone: Start: 05-10-2023 Diagnostic radiograp hy of abdomen II Komal Schaffer Work Phone: Start: 10-18-2022 Basic metabolic pane [...] Blood count complete auto&auto difrntl wbc Ector iDaz MD Work Phone: Start: 10-16-2022 IMMATURE PLATELET [...] trans urethral resection of bladder tumor Yoko Leyva Jr. Start: 12-27-2021 Cystoscopy Yoko burnette Jr. Start: 02-16-2017 Transurethral water vapor ablation of prostate Yoko Leyva Jr. Appendectomy Willy Russell SENSOR TECHNICIAN-TIRE CARE MANAGER Work Phone: Cardiac catheterization Alondra catherine Leyva Jr. Cardiac catheterization Amandeep Hanley Leyva SENSOR TECHNICIAN-TIRE CARE MANAGER Work Phone: Cataract surgery Willy Leyva SENSOR TECHNICIAN-TIRE CARE MANAGER Work Phone: Entire neck (body structure) Yoko Leyva Jr. Comment on above: 2017 Excision of neoplasm Willy villatoro Autumn SENSOR TECHNICIAN-TIRE CARE MANAGER Work Phone: Comment on above: bladder; Extraction of cataract Horace kwasi Leyva Jr. Procedure on neck Willy Leyva SENSOR TECHNICIAN-TIRE CARE MANAGER Work Phone: Total colonoscopy Willy Leyva SENSOR TECHNICIAN-TIRE CARE MANAGER Work Phone: Comment on above: PROCEDURE DATE 2007; Plan of Treatment Date Care Activity Detail Author Start: 09-25-2028 Lipid panel Lipid Panel [facility] Start: 11-08-2025 Creatinine measurement Creatinine Le chadwick [facility] Start: 11-08-2025 Potassium measurement Potassium Leve l [facility] Start: 09-25-2025 End: 09-25-2025 Patient encounter procedure 09/25/2025 2:10 PM EST Office Visit [facility] [address] [facility] [address] [place] [address] Baltazar Hoover DO [address] [facility] [address] [place] [address] [facility] Start: 05-05-2025 End: 05-05-2025 Patient encounter procedure 05/05/2025 1:30 PM EDT Office Visit [facility] [address] [place] [phone] Stanley Saunders DO [address] [place] [address] [facility] Start: 04-27-2025 DIABETES SCREEN DIABETES SCREEN [facility] Start: 04-24-2025 End: 04-24-2025 Patient encounter procedure 04/24/2025 2:50 PM EDT Procedure Visit [facility] [address] [place] [address] Real Og, DPM [address] [address] [facility] Start: 04-21-2025 Influenza vaccination [facility] Start: 04-10-2025 End: 04-10-2025 Patient encounter procedure 04/10/2025 3:10 PM EDT Procedure Visit [facility] [address] [place] [address] Real Og, DPM [address] [address] [facility] Start: 04-01-2025 End: 04-01-2025 Patient encounter procedure 04/01/2025 11:30 AM EDT Office Visit [facility] [address] [facility] [address] [place] [address] Leela Bocanegra, BRIM SETTER [address] [place] [address] Arrived [facility] Comment on above: Arrived Start: 02-18-2025 End: 02-18-2026 CK total and CKMB CK total and CKMB Lab Routine Muscle pain Expected: 02/18/2025 (Approximate), Expires: 02/18/2026 [facility] Work Phone: Comment on above: Expected: 02/18/2025 (Approximate), Expires: 02/18/2026 Start: 02-14-2025 Comprehensive metabo lic 2000 panel - Serum or Plasma [facility] Start: 02-14-2025 End: 02-14-2025 [facility] Start: 02-13-2025 Physical therapy procedure [facility] Start: 02-13-2025 Referral to neurologist [facility] Start: 02-13-2025 Referral to occupati onal therapist [facility] Start: 02-13-2025 [facility] Start: 02-13-2025 Hospital admission [facility] Start: 01-30-2025 End: 01-30-2025 Patient encounter procedure [facility] Comment on above: 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 (Primary Dx); Venous insufficiency Start: 01-06-2025 End: 01-06-2025 Patient encounter procedure 01/06/2025 12:30 PM EDT Office Visit [facility] [address] [place] [address] Stanley Saunders DO [address] [place] [address] [facility] Start: 01-02-2025 End: 01-02-2025 Patient encounter procedure [facility] Comment on above: Laceration of lesser toe of left foot without foreign body present, nail damage status unspecified, initial encounter (Primary Dx); Closed nondisplaced fracture of distal phalanx of left great toe, initial encounter; Venous insufficiency Start: 12-16-2024 Hemoglobin A1c measurement Jen betes: Hemoglobin A1C [facility] Start: 12-16-2024 End: 12-16-2024 Patient encounter procedure 12/16/2024 1:45 PM EDT Office Visit [facility] [address] [facility] [address] [place] [address] Komal Schaffer MD 112 [facility] 110 [place] [address] [facility] Start: 12-12-2024 End: 12-12-2024 Patient encounter procedure [facility] Comment on above: Laceration of lesser toe of left foot without foreign body present, nail damage status unspecified, initial encounter (Primary Dx); Closed nondisplaced fracture of distal phalanx of left great toe, initial encounter Start: 12-09-2024 End: 12-09-2024 Patient encounter procedure 12/09/2024 2:00 PM EDT Office Visit [facility] [address] [facility] [address] [place] [address] Willy Leyva, SENSOR TECHNICIAN-TIRE CARE MANAGER [address] [facility] [address] [place] [address] [facility] Start: 12-05-2024 End: 12-05-2024 Patient encounter procedure [facility] Comment on above: Arrived Start: 11-21-2024 End: 11-21-2024 Patient encounter procedure [facility] Comment on above: 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 (Primary Dx); Venous insufficiency Start: 11-11-2024 End: 11-04-2025 Basic metabolic 2000 panel - Serum or Plasma Basic Metabolic Panel Lab Routine Localized edema Essential hypertension Expected: 11/11/2024 (Approximate), Expires: 11/04/2025 [facility] Service Area Work Phone: Comment on above: Expected: 11/11/2024 (Approximate), Expires: 11/04/2025 Start: 11-11-2024 End: 11-11-2024 Professional / ancillary services management 11/11/2024 2:00 PM EDT Ancillary Procedure [address] [phone] [facility] Start: 11-04-2024 End: 11-04-2025 Holter monitor study Holter Or Event Stage Driver Cardiac Services Routine Localized edema Paroxysmal atrial fibrillation (Multi) Expected: 11/04/2024 (Approximate), Expires: 11/04/2025 [facility] Work Phone: Comment on above: Expected: 11/04/2024 (Approximate), Expires: 11/04/2025 Start: 10-15-2024 End: 10-15-2024 Patient encounter procedure [facility] Comment on above: Arrived Start: 10-11-2024 End: 10-11-2025 Basic metabolic 2000 panel - Serum or Plasma Basic Metabolic Panel Lab Routine Paroxysmal atrial fibrillation (Multi) High risk medication use Expected: 10/11/2024 (Approximate), Expires: 10/11/2025 [facility] Service Area Work Phone: Comment on above: Expected: 10/11/2024 (Approximate), Expires: 10/11/2025 Start: 10-09-2024 End: 10-09-2025 Comprehensive metabolic 2000 panel - Serum or Plasma Comprehensive metabolic panel Lab Routine Benign essential hypertension (CMS/HCC) Bradycardia Expected: 10/09/2024 (Approximate), Expires: 10/09/2025 [facility] Work Phone: Comment on above: Expected: 10/09/2024 (Approximate), Expires: 10/09/2025 Start: 10-09-2024 End: 10-09-2024 Patient encounter procedure 10/09/2024 10:00 AM EST Office Visit [facility] [address] [place] [phone] Leela Bocanegra NP [address] [place] [address] Arrived [facility] Comment on above: Arrived Start: 10-05-2024 Medicare Annual Well ness (AWV) Medicare Annual Wellness (AWV) [facility] Start: 09-25-2024 Urine screening for protein Diabetes: Urine Protein Screening [facility] Start: 09-24-2024 End: 09-24-2024 Patient encounter procedure 09/24/2024 2:20 PM EST Office Visit [facility] [address] [facility] [address] [place] [phone] Baltazar Hoover DO [address] [facility] [address] [place] [address] [facility] Start: 09-21-2024 [facility] Start: 09-20-2024 [facility] Start: 09-19-2024 [facility] Start: 09-18-2024 [facility] Start: 09-17-2024 [facility] Start: 09-16-2024 [facility] Start: 09-15-2024 [facility] Start: 09-14-2024 [facility] Start: 09-13-2024 End: 09-13-2024 [facility] Start: 09-12-2024 End: 09-12-2024 Patient encounter procedure 09/12/2024 2:50 PM EST Procedure Visit [facility] [address] [facility] [address] [place] [address] Real Og DPM [address] [address] [facility] Start: 09-12-2024 [facility] Start: 09-11-2024 [facility] Start: 09-11-2024 Hospital admission [facility] Start: 09-11-2024 Referral to neurologist [facility] Start: 09-11-2024 End: 09-11-2024 [facility] Start: 08-22-2024 End: 08-22-2024 Patient encounter procedure 08/22/2024 3:00 PM EST Procedure Visit [facility] [address] [facility] [address] [place] [address] Real Og, SRIDHAR [address] [address] [facility] Start: 07-31-2024 [facility] Start: 07-30-2024 Referral to palliati ve care physician [facility] Start: 07-29-2024 Consultation [facility] Start: 07-28-2024 Hospital admission [facility] Start: 07-24-2024 End: 07-24-2025 Basic metabolic 1998 panel - Serum or Plasma Basic metabolic panel Lab Routine Localized edema Stage 3a chronic kidney disease (HCC) (CMS/HCC) Expected: 07/24/2024 (Approximate), Expires: 07/24/2025 [facility] Work Phone: Comment on above: Expected: 07/24/2024 (Approximate), Expires: 07/24/2025 Start: 07-24-2024 End: 07-24-2024 Patient encounter procedure 07/24/2024 8:30 AM EST Office Visit [facility] [address] [place] [address] Leela Bocanegra NP [address] [place] [address] Arrived [facility] Comment on above: Arrived Start: 07-23-2024 End: 07-23-2024 Patient encounter procedure 07/23/2024 1:40 PM EST Office Visit [facility] [place] [address] [place] [address] Rubia Henning NP [address] [place], [place] [id number] [facility] [place] [facility] Start: 07-22-2024 End: 07-22-2024 Patient encounter procedure 07/22/2024 1:00 PM EST Office Visit [facility] [place] [address] [place] [phone] Mookie Tamayo NP [address] [place] [phone] [facility] [place] [facility] Start: 07-12-2024 End: 07-12-2024 [facility] Start: 07-11-2024 [facility] Start: 07-10-2024 [facility] Start: 07-09-2024 [facility] Start: 07-09-2024 Hospital admission [facility] Start: 07-09-2024 Referral to neurologist [facility] Start: 07-09-2024 [facility] Start: 07-04-2024 [facility] Start: 06-29-2024 [facility] Start: 06-28-2024 [facility] Start: 06-27-2024 [facility] Start: 06-26-2024 [facility] Start: 06-25-2024 [facility] Start: 06-24-2024 [facility] Start: 06-23-2024 [facility] Start: 06-22-2024 Hospital admission [facility] Start: 06-22-2024 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 [facility] Start: 06-22-2024 End: 06-22-2024 [facility] Start: 06-21-2024 [facility] Start: 06-20-2024 Referral to rehabili tation physician [facility] Start: 06-20-2024 Referral to rehabili tation physician [facility] Start: 06-20-2024 [facility] Start: 06-19-2024 Physical therapy procedure [facility] Start: 06-19-2024 Referral to occupati onal therapist [facility] Start: 06-19-2024 Referral to speech a nd language therapy service [facility] Start: 06-19-2024 [facility] Start: 06-19-2024 Consultation [facility] Start: 06-19-2024 Hospital admission [facility] Start: 06-19-2024 Referral to neurologist [facility] Start: 06-19-2024 [facility] Start: 06-13-2024 End: 06-13-2024 Patient encounter procedure [facility] Comment on above: 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 (Primary Dx); Venous insufficiency Start: 05-27-2024 End: 05-27-2024 Patient encounter procedure 05/27/2024 1:00 PM EDT Office Visit [facility] [place] [address] [place] [phone] Stanley Saunders DO [address] [place] [address] [facility] Comment on above: Arrived Start: 05-16-2024 Echocardiography [facility]ocardiogram [facility] Start: 04-21-2024 COVID-19 Vaccine () COVID-19 Vaccine () [facility] Start: 04-21-2024 Influenza vaccination Influenza Vacc ine (#1) [facility] Start: 03-19-2024 End: 03-19-2024 Patient encounter procedure 03/19/2024 1:00 PM EDT Office Visit [facility] [address] [place] [address] [address] [place] [address] Willy Leyva, SENSOR TECHNICIAN-TIRE CARE MANAGER [address] [facility] [address] [place] [address] [facility] Start: 02-12-2024 Bacteria identified in Blood by Culture [facility] Start: 12-24-2023 Hemoglobin A1c measurement Jen betes: Hemoglobin A1C [facility] Start: 11-16-2023 End: 11-16-2023 Patient encounter procedure 11/16/2023 3:40 PM EDT Procedure Visit [facility] [address] [place] [address] Real Og, DPMarcial [address] [facility] 5 [place] [address] [facility] Start: 11-15-2023 End: 09-20-2024 Holter monitor study Holter Or Event Stage Driver Cardiac Services Routine Paroxysmal atrial fibrillation ([facility]/HCC) Expected: 11/15/2023, Expires: 09/20/2024 [facility] Service Area Work Phone: Comment on above: Expected: 11/15/2023 , Expires: 09/20/2024 Start: 11-15-2023 End: 11-15-2023 Professional / ancillary services management 11/15/2023 1:00 PM EDT Ancillary Procedure [address] [place] [address] [facility] Start: 10-09-2023 End: 10-09-2023 ambulatory [facility] Start: 10-05-2023 End: 10-05-2023 Patient encounter procedure 10/05/2023 1:15 PM EST Office Visit [facility] [address] [place] [address] Komal Schaffer MD [address] [facility] [address] [place] [address] [facility] Start: 10-04-2023 End: 10-04-2023 ambulatory [facility] Comment on above: Arrived Start: 09-28-2023 End: 09-28-2023 ambulatory 09/28/2023 1:30 PM EST Treatment [facility] [address] [facility] [address] [place] [id number] Anderson Ray, USMAN [facility] Start: 09-25-2023 End: 09-25-2024 CBC W Auto Differential panel - Blood CBC and differential Lab Routine Paroxysmal atrial fibrillation ([facility]/HCC) Expected: 09/25/2023 (Approximate), Expires: 09/25/2024 [facility] Comment on above: Expected: 09/25/2023 (Approximate), Expires: 09/25/2024 Start: 09-25-2023 End: 09-25-2024 Comprehensive metabolic 2000 panel - Serum or Plasma Comprehensive metabolic panel Lab Routine Benign essential hypertension ([facility]/HCC) Expected: 09/25/2023 (Approximate), Expires: 09/25/2024 [facility] Comment on above: Expected: 09/25/2023 (Approximate), Expires: 09/25/2024 Start: 09-25-2023 End: 09-25-2024 Hemoglobin A1c measurement Hemoglobin A1c Lab Routine Type 2 diabetes mellitus with diabetic neuropathy, without long-term current use of insulin ([facility]/HCC) Expected: 09/25/2023 (Approximate), Expires: 09/25/2024 [facility] Work Phone: Comment on above: Expected: 09/25/2023 (Approximate), Expires: 09/25/2024 Start: 09-25-2023 End: 09-25-2024 Lipid 1996 panel - Serum or Plasma Lipid panel Lab Routine Type 2 diabetes mellitus with diabetic neuropathy, without long-term current use of insulin (CMS/HCC) Benign essential hypertension (CMS/HCC) Expected: 09/25/2023 (Approximate), Expires: 09/25/2024 [facility] Comment on above: Expected: 09/25/2023 (Approximate), Expires: 09/25/2024 Start: 09-25-2023 End: 09-25-2024 TSH W/REFLEX TO FT4 TSH W/REFLEX TO FT4 Lab Routine Type 2 diabetes mellitus with diabetic neuropathy, without long-term current use of insulin ([facility]) Expected: 09/25/2023 (Approximate), Expires: 09/25/2024 [facility] Comment on above: Expected: 09/25/2023 (Approximate), Expires: 09/25/2024 Start: 09-25-2023 End: 09-25-2023 ambulatory 09/25/2023 12:30 PM EST Treatment [facility] [address] [place] [address] Anderson Ray PTA [facility] Start: 08-24-2023 FUV, Provider: Baltazar Hoover, Status: Pen, Time: 11:10 AM FUV, Provider: Baltazar Hoover, Status: Pen, Time: 11:10 AM [place] [address] DO Work Phone: Start: 07-01-2023 Hemoglobin A1c measurement Jen betes: Hemoglobin A1C 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 [facility] Start: 05-21-2023 [facility] Start: 05-18-2023 Administration of prophylactic treatment [facility] Start: 05-18-2023 [facility] Start: 05-16-2023 Referral to rehabili tation physician [facility] Start: 05-16-2023 [facility] Start: 05-11-2023 Consultation [facility] Start: 05-11-2023 Hospital admission [facility] Start: 05-11-2023 Referral to neurologist [facility] Start: 05-10-2023 Respiratory Ventilat ion, Greater than 96 Consecutive Hours Respiratory Ventilation, Greater than 96 Consecutive Hours [facility] Start: 04-21-2023 COVID-19 Vaccine ( season) COVID-19 Vaccine ( season) [facility] Start: 04-21-2022 Influenza vaccination INFLUENZA (#1) [facility] Start: 03-21-2022 Influenza vaccination Flu vaccine (# 1) [facility] Start: 09-25-2021 COVID-19 VACCINE (4 - Booster for Pfizer series) COVID-19 VACCINE (4 - Booster for Pfizer series) [facility] Start: 08-21-2021 ADVANCE DIRECTIVE DISCUSSION ADVANCE DIRECTIVE DISCUSSION [facility] Start: 08-17-2021 Urine screening for protein Diabetes: Urine Protein Screening [facility] Start: 07-19-2021 COVID-19 Vaccine (4 - Booster for Pfizer series) COVID-19 Vaccine (4 - Booster for Pfizer series) [facility] Start: 2018 RSV High Risk: (Elde rly (60+) or Population) (1 - 1-dose 75+ series) RSV High Risk: (Elderly (60+) or Population) (1 - 1-dose 75+ series) [facility] Start: 07-03-2012 Zoster Vaccines (2 of 3) Zoste r Vaccines (2 of 3) [facility] Start: 2008 PNEUMOCOCCAL: 65+ (1 - PCV) PNEUMOCOCCAL: 65+ (1 - PCV) [facility] Start: 1993 SHINGRIX VACCINE (1 of 2) COLEMAN GRIX VACCINE (1 of 2) [facility] Start: 1965 DTaP/Tdap/Td Vaccine s (1 - Tdap) DTaP/Tdap/Td Vaccines (1 - Tdap) [facility] Start: 1962 DTaP/Tdap/Td vaccine (1 - Tdap) DTaP/Tdap/Td vaccine (1 - Tdap) [facility] Start: 1962 Urine microalbumin profile DTAP,TDAP ,TD (1 - Tdap) [facility] Start: 1961 Diabetes mellitus screening Diabetes Screening [facility] Start: 1961 HEPATITIS C SCREENING HEPATITIS C SC REENING [facility] Start: 1961 Hepatitis C screening Hepatitis C [facility] Start: 1955 Adult depression scr eening assessment DEPRESSION SCREENING [facility] Start: 1953 Glaucoma screening Diabetes: R etinopathy Screening [facility] Start: 1943 Lipid panel Lipid Panel [facility] Start: 1943 Medicare Annual Well ness (AWV) Medicare Annual Wellness (AWV) [facility] Healthcare Start: 1945 Medicare Annual Well ness Visit Medicare Annual Wellness Visit (AWV) [facility] Start: 1945 Thyroid stimulating hormone measurement TSH Level [facility] End: 11-06-2022 Basic metabolic 2000 panel - Serum or Plasma Basic Metabolic Panel Lab Routine Daily for 3 Weeks starting 10/17/2022 until 11/06/2022, 2 completed [employer] Phone: Comment on above: Daily for [address] arting 10/17/2022 until 11/06/2022, 2 completed End: 11-06-2022 CBC panel - Blood by Automated count CBC Lab Routine Daily for 3 Weeks starting 10/17/2022 until 11/06/2022, 2 completed [employer] [facility]: Comment on above: Daily for [address] arting 10/17/2022 until 11/06/2022, 2 completed Home BIPAP or CPAP Home BIPAP or CPAP Respiratory Care Routine Daily until discontinued starting 10/17/2022 [employer] Phone: Comment on above: Daily until disconti nued starting 10/17/2022 End: 10-15-2022 Intermittent pulse oximetry Pulse Oximetry Spot Check Respiratory Care Routine Continuous until discontinued starting 10/15/2022 [employer] Phone: Comment on above: Continuous until dis continued starting 10/15/2022 Oxygen therapy [[facility] Data Set] Initiate Oxygen Therapy Protocol Respiratory Care Routine As Needed until discontinued starting 10/15/2022 [employer] Phone: Comment on above: As Needed until disc ontinued starting 10/15/2022 Patient Education [facility] Work Phone: Patient referral [facility] Work Phone: [facility] Immunizations Immunization Date Immunization Notes Care Provider Bright montes 06-22-2024 influenza, high dose seasonal, preservative-free II Komal Sarbjit Work Phone: [facility] 06-05-2024 influenza, seasonal, injectable Willy Leyva SENSOR TECHNICIAN-TIRE CARE MANAGER Work Phone: [facility] Work Phone: 06-05-2024 influenza virus vaccine, unspecified formulation Leela Bocanegra BRIM SETTER Work Phone: [facility] 06-22-2023 Influenza, High-dose Seasonal, Quadrivalent, Preservative Free Anderson Ray ICT BUSINESS ANALYST [facility] 06-22-2023 influenza virus vaccine, unspecified formulation Stanley Saunders DO Work Phone: [facility] 07-21-[address] 12 Years And Older Anderson Ray ICT BUSINESS ANALYST [facility] 07-21-2022 Pfizer COVID-19 Vac Bivalent 30 MCG/0.3ML Intramuscular Suspension Willy Leyva SENSOR TECHNICIAN-TIRE CARE MANAGER Work Phone: [facility] DO Work Phone: 07-13-2022 Fluzone High-Dose Quadrivalent 0.7 ML Intramuscular Suspension Prefilled Syringe Willy Leyva SENSOR TECHNICIAN-TIRE CARE MANAGER Work Phone: [facility] Work Phone: 05-25-2021 Pfizer-BioNTech COVID-19 Vacc 30 MCG/0.3ML Intramuscular Suspension Willy Leyva SENSOR TECHNICIAN-TIRE CARE MANAGER Work Phone: [facility] DO Work Phone: 05-20-2021 Fluad Quadrivalent 0 .5 ML Intramuscular Prefilled Syringe Willy Leyva SENSOR TECHNICIAN-TIRE CARE MANAGER Work Phone: [place] [address] DO Work Phone: 05-20-2021 Seasonal, trivalent, recombinant, injectable influenza vaccine, preservative free Anderson Ray [facility] 02-18-2021 SARS-CoV-2 (COVID-19 ) mRNA BNT-162b2 liana Leyva Jr. [facility] 11-10-2020 Pfizer-BioNTech COVID-19 Vacc 30 MCG/0.3ML Intramuscular Suspension Willy Leyva SENSOR TECHNICIAN-TIRE CARE MANAGER Work Phone: [place] [address] DO Work Phone: 10-19-2020 Pfizer-BioNTech COVID-19 Vacc 30 MCG/0.3ML Intramuscular Suspension Willy Leyva SENSOR TECHNICIAN-TIRE CARE MANAGER Work Phone: [place] [address] DO Work Phone: 09-21-2020 SARS-CoV-2 (COVID-19 ) mRNA BNT-162b2 liana Leyva Jr. [facility] 08-21-2020 SARS-CoV-2 (COVID-19 ) mRNA BNT-162b2 liana Leyva Jr. [facility] 05-06-2020 influenza, high dose seasonal, preservative-free Willy Leyva SENSOR TECHNICIAN-TIRE CARE MANAGER Work Phone: [place] [address] DO Work Phone: 05-06-2020 Influenza, High-dose Seasonal, Quadrivalent, Preservative Free Anderson Ray [facility] 04-21-2020 influenza virus vaccine, unspecified formulation Willy Leyva SENSOR TECHNICIAN-TIRE CARE MANAGER Work Phone: [facility] 250 DO Work Phone: 04-21-2020 influenza, seasonal, injectable Baltazar Hoover DO Work Phone: [facility] Work Phone: 05-27-2019 influenza, high dose seasonal, preservative-free Baltazar Hoover DO Work Phone: [facility] Work Phone: 05-27-2019 Influenza, High-dose Seasonal, Quadrivalent, Preservative Free Anderson Cory [facility] 05-21-2019 influenza virus vaccine, unspecified formulation Willy Leyva SENSOR TECHNICIAN-TIRE CARE MANAGER Work Phone: [facility] 250 DO Work Phone: 05-21-2019 influenza, seasonal, injectable Baltazar Hoover DO Work Phone: [facility] Work Phone: 05-23-2018 influenza, high dose seasonal, preservative-free Willy Leyva SENSOR TECHNICIAN-TIRE CARE MANAGER Work Phone: [facility] 250 DO Work Phone: 05-23-2018 Influenza, High-dose Seasonal, Quadrivalent, Preservative Free Anderson Ray [facility] 11-30-2017 pneumococcal polysaccharide vaccine, 23 valent Willy Leyva SENSOR TECHNICIAN-TIRE CARE MANAGER Work Phone: [facility] 06-27-2017 influenza, high dose seasonal, preservative-free Willy Leyva SENSOR TECHNICIAN-TIRE CARE MANAGER Work Phone: [facility] 250 DO Work Phone: 05-21-2017 pneumococcal vaccine , unspecified formulation Willy Leyva SENSOR TECHNICIAN-TIRE CARE MANAGER Work Phone: [facility] 250 DO Work Phone: 05-17-2017 influenza, high dose seasonal, preservative-free Willy Leyva SENSOR TECHNICIAN-TIRE CARE MANAGER Work Phone: [facility] 250 DO Work Phone: 05-17-2017 Influenza, High-dose Seasonal, Quadrivalent, Preservative Free Anderson Ray [facility] 08-06-2016 pneumococcal conjuga te vaccine, 13 valent Tevinmanuel Chip DO Work Phone: [facility] 05-21-2016 pneumococcal conjuga te vaccine, 13 valent Willy Leyva SENSOR TECHNICIAN-TIRE CARE MANAGER Work Phone: [facility] 250 DO Work Phone: 10-26-2015 pneumococcal conjuga te vaccine, 13 valent Willy Leyva SENSOR TECHNICIAN-TIRE CARE MANAGER Work Phone: [place] [address] DO Work Phone: 05-22-2015 seasonal influenza, intradermal, preservative free Anderson Cory [facility] 05-30-2014 seasonal influenza, intradermal, preservative free Anderson Cory [facility] 05-08-2012 zoster vaccine, live Anderson Jaquez e [facility] 10-19-2004 pneumococcal polysaccharide vaccine, 23 valent Anderson Cory [facility] Payers Date Payer Category Payer Self-pay [id number] 2022 Medicare supplementa l policy (as second payer) [facility] [id number] 2022 Unknown 2016 Private Health Insurance [id number] .[id number]. [id number] 2008 Medicare [id number]. 1.13.159. 2.7.3.036521.315 1959 Medicare [id number] 1959 Unknown [id number] 1943 Unknown [id number] 2.16.840.1.369329.3.579. 2.593 1943 Unknown [id number] 2.16.840.1.756377.3.579. 2.593 1943 Unknown [id number] 2.16.840.1.175006.3.579. 2.593 1943 Unknown [id number] 2.16.840.1.420109.3.579. 2.593 1943 Unknown [id number] 2.16.840.1.384105.3.579. 2.593 1943 Unknown [id number] 2.16.840.1.317546.3.579. 2.593 1943 Unknown [id number] 2.16.840.1.835546.3.579. 2.593 1943 Unknown [id number] 2.16.840.1.156112.3.579. 2.727 1943 Unknown [id number] 2.16.840.1.177827.3.579. 2.727 1943 Unknown [id number] 2.16.840.1.679400.3.579. 2.727 1943 Unknown [id number] 2.16.840.1.249806.3.579. 2.727 1943 Unknown [id number] 2.16.840.1.436876.3.579. 2.727 1943 Unknown [id number] 2.16.840.1.075970.3.579. 2.727 1943 Unknown [id number] 2.16.840.1.656953.3.579. 2.727 1943 Unknown [id number] 2.16.840.1.661642.3.579. 2.727 1943 Unknown [id number] 2.16.840.1.945695.3.579. 2.727 1943 Unknown [id number] 2.16840.1.379896.3.579. 2.727 1943 Unknown [id number] 2.16840.1.767026.3.579. 2.727 1943 Unknown [id number] 2.16840.1.725425.3.579. 2.727 1943 Unknown [id number] 2.840.1.027809.3.579. 2.727 1943 Unknown [id number] 2.16840.1.886090.3.579. 2.175 1943 Unknown [id number] 2.16840.1.543119.3.579. 2.356 1943 Unknown [id number] 2.840.1.957032.3.579. 2.356 1943 Unknown [id number] 2.840.1.057255.3.579. 2.356 1943 Unknown [id number] 2.16840.1.544961.3.579. 2.356 1943 Unknown [id number] 2.16840.1.456543.3.579. 2.356 1943 Unknown [id number] 2.16840.1.096741.3.579. 2.718 1943 Unknown [id number] 2.16840.1.701894.3.579. 2.1244 1943 Unknown [id number] 2.16.840.1.183036.3.579. 2.1244 1943 Unknown [id number] 2.16.840.1.675301.3.579. 2.1244 1943 Unknown [id number] 2.16.840.1.143551.3.579. 2.1244 1943 Unknown [id number] 2.16.840.1.086257.3.579. 2.1244 1943 Unknown [id number] 2.16.840.1.067110.3.579. 2.196 1943 Unknown [id number] 2.16.840.1.489111.3.579. 2.196 1943 Unknown [id number] 2.16.840.1.401764.3.579. 2.196 1943 Unknown [id number] 2.16.840.1.201000.3.579. 2.196 1943 Unknown [id number] 2.16.840.1.238823.3.579. 2.196 1943 Unknown [id number] 2.16.840.1.852956.3.579. 2.196 1943 Unknown [id number] 2.16.840.1.945198.3.579. 2.196 1943 Unknown [id number] 2.16.840.1.057104.3.579. 2.196 1943 Unknown [id number] 2.16.840.1.079233.3.579. 2.1259 1943 Unknown [id number] 2.16.840.1.639794.3.579. 2.1259 1943 Unknown [id number] 2.16.840.1.326101.3.579. 2.1259 1943 Unknown [id number] 2.16.840.1.767993.3.579. 2.1259 1944 Unknown [id number] 2.16840.1.620244.3.579. 2.1258 1943 Unknown [id number] 2.16.840.1.995770.3.579. 2.1258 1943 Unknown [id number] 2.16840.1.901515.3.579. 2.1258 1943 Unknown [id number] 2.16840.1.944017.3.579. 2.1258 1943 Unknown [id number] 2.840.1.382580.3.579. 2.1258 1943 Unknown [id number] 2.840.1.572087.3.579. 2.1258 1943 Unknown [id number] 2.0.1.038368.3.579. 2.1258 1943 Unknown [id number] 2.840.1.764905.3.579. 2.1258 1943 Unknown [id number] 2.0.1.876648.3.579. 2.1258 1943 Unknown [id number] 2.840.1.589199.3.579. 2.1258 1943 Unknown [id number] 2.840.1.109744.3.579. 2.1258 1943 Unknown [id number] 2.840.1.318176.3.579. 2.1258 1943 Unknown [id number] 2.840.1.446382.3.579. 2.1259 Medicare [id number] Unknown [id number] 2.16840.1.031967.3.579. 2.531 Unknown [id number] 2.16840.1.733519.3.579. 2.531 Unknown [id number] 2.16840.1.913957.3.579. 2.531 Unknown [id number] 2.16.840.1.836144.3.579. 2.531 Unknown [id number] 2.16.840.1.293412.3.579. 2.531 Unknown [id number] 2.16.840.1.266736.3.579. 2.531 Social History Date Type Detail Facility Start: 12-07-2021 End: 12-23-2022 Tobacco smoking status Never smoked tobacco (finding) [facility] Start: 03-17-2023 End: 09-20-2023 Sex Assigned At Male [facility] Tobacco smoking status Never [facility] Start: 01-03-2019 End: 12-23-2022 Tobacco use and exposure Smokeless tobacco non-user [facility] Start: 05-06-2022 End: 04-01-2025 Alcohol intake Current drinker of alcohol (finding) [facility] Start: 05-08-2017 History SDOH Alcohol Comment rare [facility] Start: 1945 Sex Assigned At Not on file C [facility] Start: 04-26-2022 End: 01-15-2025 Exposure to SARS-CoV-2 (event) Not sure [facility] Work Phone: Start: 1945 Sex Assigned At Male F [facility] Start: 03-17-2023 End: 09-20-2023 Caffeine use Caffeine use [facility] 250 DO Work Phone: Comment on above: 2 CANS DAILY OF CAFF IENE FREE OR DIET POP; Start: 09-20-2023 Alcohol intake Ex-drinker (finding) [facility] Work Phone: Start: 09-07-2023 End: 01-15-2025 Alcohol intake Lifetime non-drinker (finding) [facility] [...] Only a little [facility] (I/We) worried robyn er (my/our) food would run out before (I/we) got money to buy more. Never true [facility] Start: 07-04-2024 End: 09-13-2024 Sex Male (finding) [facility] Start: 02-14-2025 SDOH Follow up SDOH Follow up [facility] Work Phone: Goals Date Patient Goal Desired Activity /State Functional Status Date Assessment Result Facility 04-01-2025 Patient Health Questionnaire 2 item (PHQ-2) [Reported] [facility] 04-01-2025 PHQ-9 quick depressi on assessment panel [Reported.PHQ] [facility] 02-18-2025 Patient Health Questionnaire 2 item (PHQ-2) [Reported] [facility] 02-18-2025 PHQ-9 quick depressi on assessment panel [Reported.PHQ] [facility] 12-05-2024 Patient Health Questionnaire 2 item (PHQ-2) [Reported] [facility] 09-13-2024 Functional status Patient at Baseline [facility] Work Phone: 09-11-2024 Functional status 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 Baseline [facility] Work Phone: 07-31-2024 Functional status 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 [facility] Work Phone: 07-12-2024 Functional status Patient at Baseline [facility] Work Phone: 07-09-2024 Functional status Patient Not at Baseline [facility] Work Phone: 07-04-2024 Functional status Patient at Baseline [facility] Work Phone: 06-22-2024 Functional status 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 Baseline [facility] Work Phone: 06-19-2024 Functional status Patient Not at Baseline [facility] Work Phone: 06-10-2023 Functional status Patient at Baseline [facility] Work Phone: 05-21-2023 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 status 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 Baseline [facility] Work Phone: 03-29-2022 Functional Status N/A [facility] 02-17-2022 Functional Status No [facility] 02-01-2022 Functional Status N/A [facility] Mental Status Date Assessment Result Facility 09-13-2024 Cognitive function Patient at Baseline [facility] Work Phone: 09-11-2024 Cognitive function Patient at Baseline [facility] Work Phone: 07-31-2024 Cognitive function Patient at Baseline [facility] Work Phone: 07-12-2024 Cognitive function Patient at Baseline [facility] Work Phone: 07-09-2024 Cognitive function Cognitive Sta tus Patient at Baseline [facility] Work Phone: 07-04-2024 Cognitive function Patient at Baseline [facility] Work Phone: 06-22-2024 Cognitive function Patient at Baseline [facility] Work Phone: 06-19-2024 Cognitive function Cognitive Sta tus Patient at Baseline [facility] Work Phone: 06-10-2023 Cognitive function Cognitive Sta tus Patient at Baseline [facility] Work Phone: 05-21-2023 Cognitive function Cognitive Sta tus Patient at Baseline [facility] Work Phone: Clinical Notes 12-07-2021 to 04-01-2025 Telephone Encounter - TEMITOPE Serrano - 04/01/2025 2:32 PM EDTTelephone Encounter - TEMITOPE Serrano - 04/01/2025 2:32 PM EDJustin Bocanegra NP - 04/01/2025 11:30 AM EDT Note Date & Type Note Facility 04-01-2025 Telephone encounter Note OARRS reviewed, Rx sent into patient's pharmacy. [facility] 04-01-2025 Miscellaneous Notes OARRS reviewed, Rx sent into patient's pharmacy. documented in this encounter [facility] 04-01-2025 History of Present illness Narrative Images from the original note were not included. Subjective Patient ID: Taurus Garcia is a 79 y.o. male who presents for No chief complaint on file.. Taurus presents today medication follow up. Patient states he is feeling good today. Back Pain This is a chronic problem. The current episode started more than 1 year ago. The problem occurs intermittently. The problem has been waxing and waning since onset. The pain is present in the lumbar spine, thoracic spine and sacro-iliac. The quality of the pain is described as stabbing. The pain radiates to the left thigh. The pain is at a severity of 10/10. The pain is severe. The pain is The same all the time. The symptoms are aggravated by coughing, bending, position, twisting and standing. Stiffness is present All day. Risk factors include sedentary lifestyle and obesity. He has tried bed rest, home exercises, heat, ice, muscle relaxant, NSAIDs and walking for the symptoms. The treatment provided mild (mild relief with the use of pain medication) relief. Over the past 2 weeks, how often [...] OR MILK 3 TIMES DAILY 270 tablet 3 furosemide (Lasix) 20 MG tablet Take 1-2 tablets (20-40 mg) by mouth Daily 180 tablet 3 gabapentin (Neurontin) 300 MG capsule TAKE 1 CAPSULE BY MOUTH IN THE MORNING AND 1 CAPSULE BY MOUTH BEFORE BEDTIME (Patient taking differently: Take 600 mg by mouth in the morning and 600 mg before bedtime.) 180 capsule 3 hydrALAZINE (Apresoline) 50 MG [...] ONE DAILY MENS 50+ADVANCED PO) nystatin (Mycostatin) 958383 UNIT/GM powder omega-3 (Fish Oil) 1000 MG capsule Take 2 capsules by mouth Daily potassium chloride CR (Klor-Con M10) 10 MEQ [...] DAILY IN THE EVENING 90 tablet 3 spironolactone (Aldactone) 25 MG tablet Take 25 mg by mouth Daily No current facility-administered medications on file prior [...] Acute respiratory failure with hypoxia ([facility]) 11/17/2023 Acute respiratory insufficiency 12/15/2018 d/t Pulmonary Emboli MATT (acute kidney injury) 09/17/2024 Allergic rhinitis due to other allergen Autoimmune disorder ([facility]) Bilateral pulmonary embolism ([facility]) 2019 Acute Hypoxic Resp. 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 Cervical radiculopathy at C8 05/2017 CTS (carpal tunnel syndrome) 05/2017 Bilateral Essential hypertension, benign Facial droop Head injury with fracture of skull ([facility]) 09/17/2024 History of being hospitalized [...] edema 2009 /pucker Muscle cramp Myasthenia gravis ([facility]) 12/27/2017 / dyspnea Myasthenic crisis ([facility]) 05/10/2023 Obesity Obstructive sleep apnea (adult) (pediatric) Pulmonary emboli ([facility]) 11/17/2023 Pulmonary embolism ([facility]) 11/2018 Pure hypercholesterolemia Shortness of breath Superficial thrombophlebitis 12/16/2018 Rt Thigh Syncope 09/17/2024 Tremor Troponin I above reference range 11/17/2023 Urothelial carcinoma ([facility]) 03/03/2022 High Grade Papillary Urothelial [...] Vitals Smoking Status Never Review of Systems Musculoskeletal: Positive for back pain. Objective Physical Exam Vitals reviewed. Constitutional: Appearance: Normal appearance. He is obese. HENT: Head: Normocephalic. Nose: Nose normal. Mouth/Throat: Mouth: Mucous membranes are moist. Pharynx: Oropharynx is clear. Eyes: Conjunctiva/sclera: Conjunctivae normal. Cardiovascular: Rate and Rhythm: Normal rate and regular rhythm. Pulmonary: Effort: Pulmonary effort is normal. Breath sounds: Normal breath sounds. Abdominal: General: Bowel sounds are normal. Palpations: Abdomen is soft. Skin: General: Skin is warm and dry. Comments: Vascular discoloration to BLE Neurological: General: No focal deficit present. Mental Status: He is alert and oriented to person, place, and time. Psychiatric: Mood and Affect: Mood normal. Behavior: Behavior normal. Thought Content: Thought content normal. Judgment: Judgment normal. Assessment/Plan Diagnoses and all orders for this visit: Gross hematuria Pt needs to follow up with Dr. Barnhart as soon as he is able. Pt has history of bladder cancer. Lumbosacral spondylosis without myelopathy Medication choice and dosage is appropriate for patient's current medical conditions. Patient will continue to be required to be seen in our [...] OARRS Report was reviewed for this patient. No follow-ups on file. documented in this encounter [facility] 02-18-2025 Telephone encounter Note Kimberly Wright filled the Percocet for him most recently. He will need to reach out to her office for the refill. [facility] 02-18-2025 Miscellaneous Notes Kimberly Wright filled the Percocet for him most recently. He will need to reach out to her office for the refill. documented in this encounter [facility] 02-18-2025 History of Present illness Narrative Images from the original note were not included. Subjective Patient ID: Taurus Garcia is a 79 y.o. male who presents for No chief complaint on file.. Taurus presents today for having pain that is also making it difficult to walk. This all started a week ago Monday. He has EMS take him to [place]. He even states that he can't take care of himself. He states she thinks he needs to go to the [facility] for help. Over the past 2 weeks, [...] BY MOUTH BEFORE BEDTIME 180 capsule 3 hydrALAZINE (Apresoline) 50 [...] ONE DAILY MENS 50+ADVANCED PO) nystatin (Mycostatin) 623198 UNIT/GM powder omega-3 (Fish Oil) 1000 MG [...] Diagnosis Date Acute respiratory failure with hypoxia (HCC) 11/17/2023 Acute respiratory insufficiency 12/15/2018 d/t Pulmonary Emboli MATT (acute kidney injury) 09/17/2024 Allergic rhinitis due to other allergen Autoimmune disorder (HCC) Bilateral pulmonary embolism (HCC) 2019 Acute Hypoxic Resp. 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 Cervical radiculopathy at 05/2017 CTS (carpal tunnel syndrome) 05/2017 Bilateral Essential hypertension, benign Facial droop Head injury with fracture of skull ([facility]) 09/17/2024 History of being hospitalized [...] /pucker Muscle cramp Myasthenia gravis ([facility]) 12/27/2017 / dyspnea Myasthenic crisis ([facility]) 05/10/2023 Obesity Obstructive sleep apnea (adult) (pediatric) Pulmonary emboli ([facility]) 11/17/2023 Pulmonary embolism ([facility]) 11/2018 Pure hypercholesterolemia Shortness of breath Superficial thrombophlebitis 12/16/2018 Rt Thigh Syncope 09/17/2024 Tremor Troponin I above reference range 11/17/2023 Urothelial carcinoma ([facility]) 03/03/2022 High Grade Papillary Urothelial [...] needed for moderate pain or severe pain Pt is seen by pain management. Pain management has been sending in the medication. Will have pt call pain management for refill. No follow-ups on file. documented in this encounter [facility] 02-14-2025 Hospital Discharge instructions Ambulatory OrdersInitiate Home Health Time Frame: 02/14/25, Location: Determined By Patient Additional Instructions Home health to manage: -RN/PT/OT to eval and treat -Monitor VS per protocol -High fall risk precautions -Perform neuro assessments -Assist with medication management and education [facility] Work Phone: 02-13-2025 History and physi nabila note Note Date/Time February 13, 2025 6:09pm [facility] [address] [place] [address] Hospitalist H&P Signed Patient: Taurus Garcia MR#: [id number] : 1945 Acct:[id number] Age/Sex: 79 / M Adm Date: 5 Loc: Room: [address] [place] [address] Type: ADM INOo Attending Dr: Jarret Garza MD Copies to: MD Jarret Gonsalves II, MD~ HPI DATE OF EXAMINATION: 02/13/25 CHIEF COMPLAINT: Weakness HISTORY OF PRESENT ILLNESS: Taurus Garcia is a 79-year-old male with significant past medical history of myasthenia gravis on pyridostigmine and steroids, hyperlipidemia, hypertension on multiple antihypertensive medication, right eye blindness, 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 Patient reports worsening weakness in the right upper extremity with right eye twitching for the past few days, he was intubated in the past for which she is more concerned about any crises happening. Here in the ER workup been unrevealing with no obvious signs or symptoms or source of infection at this time. Patient was kept here for observation. Review of Systems Review of Systems All other systems reviewed & are negative unless noted below or in HPI [facility] Medical History Chronic back pain Chronic anticoagulation Prostate hypertrophy Bladder cancer chemo injected into bladder several times Pulmonary emboli HTN (hypertension) Acute exacerbation of myasthenia gravis Myasthenia gravis Surgical History History of appendectomy History of cystoscopy Family History Mother Cancer Father Hypertension Social History Smoking Status: Never smoker Substance Use Type: None Meds Medications and Allergies Allergies No Known Allergies Allergy (Verified 02/13/25 12:02) Home Medications loratadine 10 mg tablet (Allergy Relief (loratadine)) 10 mg PO DAILY 12/27/17 [History Confirmed 02/13/25] tsmidnhi-ilp-hkkfj acid 0.4 mg-lycopene 300 mcg-lutein 250 mcg tablet (Adults 50Plus) 1 tab PO DAILY 12/27/17 [History Confirmed 02/13/25] omega-3 fatty acids-fish oil 360 mg-1,200 mg capsule (Fish Oil) 1 cap PO BID 12/27/17 [History Confirmed 02/13/25] simvastatin 40 mg tablet 40 mg PO HS 12/27/17 [History Confirmed 02/13/25] apixaban 5 mg tablet (Eliquis) 5 mg PO Q12H #0 tabs 06/09/23 [Rx Confirmed 02/13/25] pyridostigmine bromide 60 mg tablet 1 tab PO QID 30 days #120 tabs 06/09/23 [Rx Confirmed 02/13/25] gabapentin 300 mg capsule 600 mg PO BID 06/19/24 [History Confirmed 02/13/25] furosemide 20 mg tablet 20 mg PO DAILY.8A #0 tabs 07/03/24 [Rx Confirmed 02/13/25] prednisone 5 mg tablet 15 mg (3 x 5 mg) PO DAILY 30 days #90 tabs 07/03/24 [Rx Confirmed 02/13/25] baclofen 10 mg tablet 10 mg PO TID 09/11/24 [History Confirmed 02/13/25] hydralazine 50 mg tablet 50 mg PO BID 09/11/24 [History Confirmed 02/13/25] lisinopril 20 mg tablet 20 mg PO DAILY 09/11/24 [History Confirmed 02/13/25] potassium chloride 10 mEq tablet,extended release(part/cryst) 20 meq PO BID 09/11/24 [History Confirmed 02/13/25] oxycodone-acetaminophen 5 mg-325 mg tablet 1 tab PO Q12H PRN pain 02/13/25 [History Confirmed 02/13/25] spironolactone 25 mg tablet 25 mg PO DAILY 02/13/25 [History Confirmed 02/13/25] Exam Physical Exam Vital Signs: Temp Pulse Resp BP Pulse Ox O2 Del Method 98.4 F 67 18 137/66 95 Room Air 02/13/25 09:25 02/13/25 16:06 02/13/25 16:06 02/13/25 16:06 02/13/25 16:06 02/13/25 16:06 Narrative: Const General: cooperative, morbidly obese HEENT Normal oropharyngeal mucosa without any ulcers or exudates Eyes: Conjunctiva normal Pulmonary Auscultation: clear to auscultation , no crackles, no wheezes Cardiovascular Rate: normal rate Rhythm: regular rhythm Heart Sounds: S1 normal, S2 normal and no murmurs GI Inspection: non-distended Palpation: soft, not firm and nontender. No rigidity or rebound. Deferred Neuro General: alert, awake and oriented x3. No obvious new focal deficit Musculoskeletal: normal range of motion Extrem General: no cyanosis, no pedal edema Psych Appearance: appropriate affect. Grossly normal Results - Hospitalist H&P Lab Results Labs: Laboratory Last Values Corrected WBC 7.3 X10E3/uL (4.1-10.5) 02/13/25 11:19 Uncorrected WBC Count 7.3 x10E3/uL (4.1-10.5) 02/13/25 11:19 RBC 4.33 x10E6/uL (3.90-5.60) 02/13/25 11:19 Hgb 13.1 g/dL (13.0-17.0) 02/13/25 11:19 Hct 39.2 % (38.8-50.0) 02/13/25 11:19 MCV 90.6 fl (83.5-101) 02/13/25 11:19 MCH 30.2 pg (27.5-35.2) 02/13/25 11:19 MCHC 33.3 g/dL (32.5-35.6) 02/13/25 11:19 RDW 16.6 % (12.0-14.8) H 02/13/25 11:19 Plt Count 168 x10E3/uL (150-450) 02/13/25 11:19 MPV 8.3 fl (6.6-10.1) 02/13/25 11:19 Neut % (Auto) 65.6 % (.) 02/13/25 11:19 Lymph % (Auto) 16.7 % (.) 02/13/25 11:19 Delta % (Auto) 15.5 % (.) 02/13/25 11:19 Eos % (Auto) 1.0 % (.) 02/13/25 11:19 Baso % (Auto) 1.2 % (.) 02/13/25 11:19 Nucleat RBC Rel Count 0.0 /100 WBC (0-0.5) 02/13/25 11:19 Neut # (Auto) 4.8 x10E3/uL (1.8-7.7) 02/13/25 11:19 Lymph # (Auto) 1.2 x10E3/uL (1.00-4.8) 02/13/25 11:19 Delta # (Auto) 1.1 x10E3/uL (0.0-0.8) H 02/13/25 11:19 Eos # (Auto) 0.1 x10E3/uL (0.0-0.45) 02/13/25 11:19 Baso # (Auto) 0.1 x10E3/uL (0.0-0.2) 02/13/25 11:19 Monocyte Dist Width 20.92 % (0.00-20.00) H 02/13/25 11:19 PHA Creatinine Clear 64.21 02/13/25 11:19 Sodium 140 mmol/L (136-145) 02/13/25 11:19 Potassium 4.0 mmol/L (3.5-5.1) 02/13/25 11:19 Chloride 105 mmol/L (98-107) 02/13/25 11:19 Carbon Dioxide 29.4 mmol/L (21.0-31.0) 02/13/25 11:19 Anion Gap 9.6 mEq/L (6.0-15.0) 02/13/25 11:19 BUN 24 mg/dL (7-25) 02/13/25 11:19 Creatinine 1.23 mg/dL (0.70-1.30) 02/13/25 11:19 Est GFR (CKD-EPI) 58.980 mL/Min 02/13/25 11:19 Glucose 98 mg/dL (70-100) 02/13/25 11:19 POC Glucose 105 mg/dl 02/13/25 12:28 Calcium 9.0 mg/dL (8.6-10.3) 02/13/25 11:19 Magnesium 1.9 mg/dL (1.9-2.7) 02/13/25 11:19 Total Bilirubin 1.1 mg/dl (0.3-1.0) H 02/13/25 11:19 AST 24 U/L (13-39) 02/13/25 11:19 ALT 16 U/L (7-52) 02/13/25 11:19 Alkaline Phosphatase 48 U/L (34-104) 02/13/25 11:19 Troponin I High Sens 10 ng/L (0-20) 02/13/25 11:19 B-Natriuretic Peptide 38.0 pg/mL (5-100) 02/13/25 11:19 Total Protein 5.7 gm/dL (6.4-8.9) L 02/13/25 11:19 Albumin 3.5 gm/dL (3.5-5.7) 02/13/25 11:19 Globulin 2.2 gm/dL 02/13/25 11:19 Albumin/Globulin Ratio 1.6 02/13/25 11:19 TSH 3rd Generation 1.43 uIU/mL (0.45-5.33) 02/13/25 11:19 Urine Color Yellow (Yellow) 02/13/25 12:55 Urine Appearance Clear (Clear) 02/13/25 12:55 Urine pH 5.5 (5.0-9.0) 02/13/25 12:55 Ur Specific Byron 1.018 (1.001-1.030) 02/13/25 12:55 Urine Protein Negative mg/dL (Negative) 02/13/25 12:55 Urine Glucose (UA) Normal mg/dL (Normal) 02/13/25 12:55 Urine Ketones 1+ (Negative) H 02/13/25 12:55 Urine Occult Blood 1+ (Negative) H 02/13/25 12:55 Urine Nitrite Negative (Negative) 02/13/25 12:55 Urine Bilirubin Negative (Negative) 02/13/25 12:55 Urine Urobilinogen Normal mg/dL (Normal) 02/13/25 12:55 Ur Leukocyte Esterase Negative (Negative) 02/13/25 12:55 Urine RBC 10-19 /HPF (0-4) H 02/13/25 12:55 Urine WBC 1-2 /HPF (0-4) 02/13/25 12:55 Ur Squamous Epith Cells 1-2 /HPF (0-2) 02/13/25 12:55 Urine Bacteria Rare /HPF (None Seen) 02/13/25 12:55 Hyaline Casts None /LPF (0-8) 02/13/25 12:55 Urine Mucus Rare /LPF 02/13/25 12:55 Assessment & Plan Assessment/Plan (1) Generalized weakness: (2) Myasthenia gravis: (3) Chronic anticoagulation: Plan -Afebrile, no leukocytosis -No obvious source of infectious process -Continue to maintain steroids and pyridostigmine -Respiratory parameters (negative inspiratory force and vital capacity) while here -Will get PT/OT here for input -Neurology consult for input DVT ppx: Eliquis Diet: Regular Discussed with patient at bedside, all questions answered IP vs OBS Justification Based on differential dx, clinical care plan, and risk of adverse events, if untreated, in my clinical judgement this patient requires an acute care setting as: OBSERVATION because of an expectation of an under 2 midnight stay. Estimated length of stay (# of days): 2 Documented By: Jarret Garza MD 02/13/25 16 37 Signed By: <Electronically signed by Jarret Garza MD> 02/13/25 1809 [facility] Work Phone: 1(278) 955-529806-26-2025 Evaluation note* Diagnosis Onset Date Resolution Status Admit Date Chronic anticoagulation acute J [facility] 2024 4:31pm Generalized weakness acute February 13, 2025 4:31pm Myasthenia gravis acute February 132024 4:31pm [facility] Work Phone: 1(299) 631-513606-26-2025 Evaluation note* Diagnosis Onset Date Resolution Status Admit Date Chronic anticoagulation inactive J [facility] 2024 4:31pm Generalized weakness inactive February 13, 2025 4:31pm Myasthenia gravis inactive February 132024 4:31pm [facility] Work Phone: 1(563) 261-352006-26-2025 [place] [address] Hospitalist H&P Signed Patient: Taurus Garcia MR#: [id number] : 1945 Acct:[id number] Age/Sex: 79 / M Adm Date: 5 Loc: Room: [address] [place] [address] Type: ADM INOo Attending Dr: Jarret Garza MD Copies to: MD Jarret Gonsalves II, MD~ HPI DATE OF EXAMINATION: 02/13/25 CHIEF COMPLAINT: Weakness HISTORY OF PRESENT ILLNESS: Taurus Garcia is a 79-year-old male with significant past medical history of myasthenia gravis on pyridostigmine and steroids, hyperlipidemia, hypertension on multiple antihypertensive medication, right eye blindness, 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 Patient reports worsening weakness in the right upper extremity with right eye twitching for the past few days, he was intubated in the past for which she is more concerned about any criseshappening. Here in the ER workup been unrevealing with no obvious signs or symptoms or source of inf ection at this time. Patient was kept here for observation. Review of Systems Review of Systems All other systems reviewed & are negative unless noted below or in HPI [facility] Medical History Chronic back pain Chronic anticoagulation Prostate hypertrophy Bladder cancer chemo injected into bladder several times Pulmonary emboli HTN (hypertension) Acute exacerbation of myasthenia gravis Myasthenia gravis Surgical History History of appendectomy History of cystoscopy Family History Mother Cancer Father Hypertension Social History Smoking Status: Never smoker Substance Use Type: None Meds Medications and Allergies Allergies No Known Allergies Allergy (Verified 02/13/25 12:02) Home Medications loratadine 10 mg tablet (Allergy Relief (loratadine)) 10 mg PO DAILY 12/27/17 [History Confirmed 02/13/25] ddfqofvv-gvf-btqbg acid 0.4 mg-lycopene 300 mcg-lutein 250 mcg tablet (Adults 50Plus) 1 tab PO DAILY 12/27/17 [History Confirmed 02/13/25] omega-3 fatty acids-fish oil 360 mg-1,200 mg capsule (Fish Oil) 1 cap PO BID 12/27/17 [History Confirmed 02/13/25] simvastatin 40 mg tablet 40 mg PO HS 12/27/17 [History Confirmed 02/13/25] apixaban 5 mg tablet (Eliquis) 5 mg PO Q12H #0 tabs 06/09/23 [Rx Confirmed 02/13/25] pyridostigmine bromide 60 mg tablet 1 tab PO QID 30 days #120 tabs 06/09/23 [Rx Confirmed 02/13/25] gabapentin 300 mg capsule 600 mg PO BID 06/19/24 [History Confirmed 02/13/25] furosemide 20 mg tablet 20 mg PO DAILY.8A #0 tabs 07/03/24 [Rx Confirmed 02/13/25] prednisone 5 mg tablet 15 mg (3 x 5 mg) PO DAILY 30 days #90 tabs 07/03/24 [Rx Confirmed 02/13/25] baclofen 10 mg tablet 10 mg PO TID 09/11/24 [History Confirmed 02/13/25] hydralazine 50 mg tablet 50 mg PO BID 09/11/24 [History Confirmed 02/13/25] lisinopril 20 mg tablet 20 mg PO DAILY 09/11/24 [History Confirmed 02/13/25] potassium chloride 10 mEq tablet,extended release(part/cryst) 20 meq PO BID 09/11/24 [History Confirmed 02/13/25] oxycodone-acetaminophen 5 mg-325 mg tablet 1 tab PO Q12H PRN pain 02/13/25 [History Confirmed 02/13/25] spironolactone 25 mg tablet 25 mg PO DAILY 02/13/25 [History Confirmed 02/13/25] Exam Physical Exam Vital Signs: Temp Pulse Resp BP Pulse Ox O2 Del Method 98.4 F 67 18 137/66 95 Room Air 02/13/25 09:25 02/13/25 16:06 02/13/25 16:06 02/13/25 16:06 02/13/25 16:06 02/13/25 16:06 Narrative: Const General: cooperative, morbidly obese HEENT Normal oropharyngeal mucosa without any ulcers or exudates Eyes: Conjunctiva normal Pulmonary Auscultation: clear to auscultation , no crackles, no wheezes Cardiovascular Rate: normal rate Rhythm: regular rhythm Heart Sounds: S1 normal, S2 normal and no murmurs GI Inspection: non-distended Palpation: soft, not firm and nontender. No rigidity or rebound. Deferred Neuro General: alert, awake and oriented x3. No obvious new focal deficit Musculoskeletal: normal range of motion Extrem General: no cyanosis, no pedal edema Psych Appearance: appropriate affect. Grossly normal Results - Hospitalist H&P Lab Results Labs: Laboratory Last Values Corrected WBC 7.3 X10E3/uL (4.1-10.5) 02/13/25 11:19 Uncorrected WBC Count 7.3 x10E3/uL (4.1-10.5) 02/13/25 11:19 RBC 4.33 x10E6/uL (3.90-5.60) 02/13/25 11:19 Hgb 13.1 g/dL (13.0-17.0) 02/13/25 11:19 Hct 39.2 % (38.8-50.0) 02/13/25 11:19 MCV 90.6 fl (83.5-101) 02/13/25 11:19 MCH 30.2 pg (27.5-35.2) 02/13/25 11:19 MCHC 33.3 g/dL (32.5-35.6) 02/13/25 11:19 RDW 16.6 % (12.0-14.8) H 02/13/25 11:19 Plt Count 168 x10E3/uL (150-450) 02/13/25 11:19 MPV 8.3 fl (6.6-10.1) 02/13/25 11:19 Neut % (Auto) 65.6 % (.) 02/13/25 11:19 Lymph % (Auto) 16.7 % (.) 02/13/25 11:19 Delta % (Auto) 15.5 % (.) 02/13/25 11:19 Eos % (Auto) 1.0 % (.) 02/13/25 11:19 Baso % (Auto) 1.2 % (.) 02/13/25 11:19 Nucleat RBC Rel Count 0.0 /100 WBC (0-0.5) 02/13/25 11:19 Neut # (Auto) 4.8 x10E3/uL (1.8-7.7) 02/13/25 11:19 Lymph # (Auto) 1.2 x10E3/uL (1.00-4.8) 02/13/25 11:19 Delta # (Auto) 1.1 x10E3/uL (0.0-0.8) H 02/13/25 11:19 Eos # (Auto) 0.1 x10E3/uL (0.0-0.45) 02/13/25 11:19 Baso # (Auto) 0.1 x10E3/uL (0.0-0.2) 02/13/25 11:19 Monocyte Dist Width 20.92 % (0.00-20.00) H 02/13/25 11:19 PHA Creatinine Clear 64.21 02/13/25 11:19 Sodium 140 mmol/L (136-145) 02/13/25 11:19 Potassium 4.0 mmol/L (3.5-5.1) 02/13/25 11:19 Chloride 105 mmol/L (98-107) 02/13/25 11:19 Carbon Dioxide 29.4 mmol/L (21.0-31.0) 02/13/25 11:19 Anion Gap 9.6 mEq/L (6.0-15.0) 02/13/25 11:19 BUN 24 mg/dL (7-25) 02/13/25 11:19 Creatinine 1.23 mg/dL (0.70-1.30) 02/13/25 11:19 Est GFR (CKD-EPI) 58.980 mL/Min 02/13/25 11:19 Glucose 98 mg/dL (70-100) 02/13/25 11:19 POC Glucose 105 mg/dl 02/13/25 12:28 Calcium 9.0 mg/dL (8.6-10.3) 02/13/25 11:19 Magnesium 1.9 mg/dL (1.9-2.7) 02/13/25 11:19 Total Bilirubin 1.1 mg/dl (0.3-1.0) H 02/13/25 11:19 AST 24 U/L (13-39) 02/13/25 11:19 ALT 16 U/L (7-52) 02/13/25 11:19 Alkaline Phosphatase 48 U/L (34-104) 02/13/25 11:19 Troponin I High Sens 10 ng/L (0-20) 02/13/25 11:19 B-Natriuretic Peptide 38.0 pg/mL (5-100) 02/13/25 11:19 Total Protein 5.7 gm/dL (6.4-8.9) L 02/13/25 11:19 Albumin 3.5 gm/dL (3.5-5.7) 02/13/25 11:19 Globulin 2.2 gm/dL 02/13/25 11:19 Albumin/Globulin Ratio 1.6 02/13/25 11:19 TSH 3rd Generation 1.43 uIU/mL (0.45-5.33) 02/13/25 11:19 Urine Color Yellow (Yellow) 02/13/25 12:55 Urine Appearance Clear (Clear) 02/13/25 12:55 Urine pH 5.5 (5.0-9.0) 02/13/25 12:55 Ur Specific Byron 1.018 (1.001-1.030) 02/13/25 12:55 Urine Protein Negative mg/dL (Negative) 02/13/25 12:55 Urine Glucose (UA) Normal mg/dL (Normal) 02/13/25 12:55 Urine Ketones 1+ (Negative) H 02/13/25 12:55 Urine Occult Blood 1+ (Negative) H 02/13/25 12:55 Urine Nitrite Negative (Negative) 02/13/25 12:55 Urine Bilirubin Negative (Negative) 02/13/25 12:55 Urine Urobilinogen Normal mg/dL (Normal) 02/13/25 12:55 Ur Leukocyte Esterase Negative (Negative) 02/13/25 12:55 Urine RBC 10-19 /HPF (0-4) H 02/13/25 12:55 Urine WBC 1-2 /HPF (0-4) 02/13/25 12:55 Ur Squamous Epith Cells 1-2 /HPF (0-2) 02/13/25 12:55 Urine Bacteria Rare /HPF (None Seen) 02/13/25 12:55 Hyaline Casts None /LPF (0-8) 02/13/25 12:55 Urine Mucus Rare /LPF 02/13/25 12:55 Assessment & Plan Assessment/Plan (1) Generalized weakness: (2) Myasthenia gravis: (3) Chronic anticoagulation: Plan -Afebrile, no leukocytosis -No obvious source of infectious process -Continue to maintain steroids and pyridostigmine -Respiratory parameters (negative inspiratory force and vital capacity) while here -Will get PT/OT here for input -Neurology consult for input DVT ppx: Eliquis Diet: Regular Discussed with patient at bedside, all questions answered IP vs OBS Justification Based on differential dx, clinical care plan, and risk of adverse events, if untreated, in my clinical judgement this patient requires an acute care setting as: OBSERVATION because of an expectation of an under 2 midnight stay. Estimated length of stay (# of days): 2 Documented By: Jarret Garza MD 02/13/25 16 37 Signed By: 02/13/25 1809 [facility]06-26-2025 Radiology Diagnostic study note [facility] [place] [address] CT Scan Report Signed Patient: Taurus Garcia MR#: [id number] : 1945 Acct:[id number] Age/Sex: 79 / M ADM Date: 5 Loc: ER Room: Type: [facility] ER Attending Dr: Copies to: Kathleen Parker APRN~ Ordering Provider: Kathleen Parker APRN Date of Service: 02/13/25 CT/CT angio neck: weakness ([id number]) CT/CT angio head: weakness CT angiogram head and neck performed with contrast INDICATION: Weakness COMPARISON: CT angiogram head and neck 07/09/2024 CT angiogram images obtained through the head and neck with Sagittal and coronalMIP as well as 3-D volume rendered reconstructions of the carotid arteries and eklutna of Carr were reviewed. Stenosisis evaluated using NASCET criteria. This CT exam was performed using one or more following dose reduction techniques: Automated exposure control, adjustment of the mA and/or kV accordingto patient size, or use of iterative reconstruction technique. FINDINGS: Three-vessel arch. Carotid systems are patent. Mild to moderate calcific plaque both bifurcations extending into proximal ICAs. Codominant vertebral arteries. Mild plaque both vertebral artery ostia.Otherwise vertebral arteries are patent. Intracranial ICAs are patent. Anterior Chivers and middle cerebral arteries arepatent. Vertebral arteries, basilar artery, basilar tip and basilar region patent. Posterior cerebral arteries, superiorcerebellar arteries, picas are patent. No findings of dural venous sinus are most. Multilevel postsurgical and degenerative changes of the cervical spine. Mild reversal normal lordosis.. CT/CT angio head IMPRESSION: Negative for large vessel occlusion or hemodynamically significant stenosis Impression dictated by: Julian Bustos M.D. 02/13/2025 3:25 PM Dictation Location: [place] [address] Transcribed By: KRISSY 02/13/25 1525 Dictated By: Julian Bustos MD 02/13/25 1517 Signed By: 02/13/25 1525 [facility] Work Phone: 1(720) 948-505106-26-2025 Radiology Diagnostic study [facility] [place] [address] [place] [address] CT Scan Report Signed Patient: Taurus Garcia MR#: [id number] : 1945 Acct:[id number] Age/Sex: 79 / M ADM Date: 5 Loc: ER Room: Type: [facility] ER Attending Dr: Copies to: Kathleen Parker APRN~ Ordering Provider: Kathleen Parker APRN Date of Service: 02/13/25 CT/CT head/brain wo con: weakness CT BRAIN WITHOUT CONTRAST: CLINICAL HISTORY: Weakness for the past 2 days, right upper extremity and eye twitching history of myasthenia gravis COMPARISON: 07/28/2024 TECHNIQUE: Contiguous axial unenhanced images were obtained through the brain. This CT exam was performed using one or more following dose reduction techniques: Automated exposure control, adjustmentof the mA and/or kV accordingto patient size, or use of iterative reconstruction technique. FINDINGS: Mild motion degradation. There is no evidence of midline shift, intra or extra-axial fluid collection, hemorrhage or CT evidence of acute large vascular distribution stroke Cataract surgery. Right-sided scleral buckle. Visualized paranasal sinuses are clear. The surrounding soft tissues are normal. CT/CT head/brain wo con IMPRESSION: NO ACUTE INTRACRANIAL ABNORMALITY. Impression dictated by: Julian Bustos M.D. 02/13/2025 3:14 PM Dictation Location: [place] [address] Transcribed By: [facility] 02/13/251513 Dictated By: Julian Bustos MD 02/13/251509 Signed By: 02/13/251513 [facility] Work Phone: 1(174) 886-393306-12-2025 History of Present illness Narrative* Real Og, DPM - 01/30/2025 3:10 PM EDT Patient: Taurus Garcia : 1945 PCP: Komal Schaffer MD SUBJECTIVE This is a 79 y.o. [...] Diagnosis Date Acute respiratory failure with hypoxia ([facility]) 11/17/2023 Acute respiratory insufficiency 12/15/2018 d/t Pulmonary Emboli MATT (acute kidney injury) ([facility]) 09/17/2024 Allergic rhinitis due to other allergen Autoimmune disorder ([facility]) Bilateral pulmonary embolism ([facility]) 2019 Acute Hypoxic Resp. 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 Cervical radiculopathy at C8 05/2017 CTS (carpal tunnel syndrome) 05/2017 Bilateral Essential hypertension, benign ([facility]) Facial droop Head injury with fracture of skull (CMS/H[facility]) 09/17/2024 History of being hospitalized 06/19/2024 Myasthenia Gravis Exacerbation, Weakness, Dyspnea History of being hospitalized 07/09/2024 Generalized Weakness, MATT History of being hospitalized 07/28/2024 Syncope, Head injury, Generalized weakness, Hypomagnesemia History of being hospitalized 09/11/2024 Myasthenia Gravis Crisis History of echocardiogram 12/15/2018 EF 60-65%, LVH Hypertension ([facility]) Impaired glucose tolerance test Oral Lumbosacral spondylosis without myelopathy LVH (left ventricular hypertrophy) 12/15/2018 ECHO EF 60-65% Macular edema 2009 /pucker Muscle cramp Myasthenia gravis 12/27/2017 / dyspnea Myasthenic crisis ([facility]) 05/10/2023 Obesity Obstructive sleep apnea (adult) (pediatric) Pulmonary emboli 11/17/2023 Pulmonary embolism 11/2018 Pure hypercholesterolemia ([facility]) Shortness of breath Superficial thrombophlebitis 12/16/2018 Rt Thigh Syncope 09/17/2024 Tremor Troponin I above reference range 11/17/2023 Urothelial carcinoma ([facility]) 03/03/2022 High Grade Papillary Urothelial [...] PO), , Disp: , Rfl: nystatin (Mycostatin) [id number] UNIT/GM powder, , Disp: , Rfl: omega-3 [...] min Stress: No Stress Concern Present (03/17/2023) [place] of [employer] - Occupational Stress Questionnaire Feeling of Stress : Only a little Social Connections: Moderately Isolated (03/17/2023) Social Connection and Isolation Panel [NHANES] Frequency of Communication with Friends and Family: More than three times a week Frequency of Social Gatherings with Friends and Family: Once a week Attends [employer] Services: Never Active Member of Clubs or [...] condition. Real Og DPM documented in this encounterAlvin J. Siteman Cancer [id number] History of Present illness Narrative* Willy Leyva APRN-TIRE CARE MANAGER - 01/15/2025 10:00 AM EDT Chief Complaint There has been some improvement in my swelling' Reason for Visit 1 month follow up Patient presents to the office today for outpatient follow-up for edema, medication change and testing results. Last evaluated in clinic by myself October 2024. At that time he presented with increasing edema and hypertension. I increased the Lasix to 40 mg daily and added Aldactone. Repeat potassium 3.6 and creatinine 1.0. A follow-up Holter showed no evidence of atrial fibrillation. Presents today ambulatory with wheeled walker and steady gait. Accompanied by spouse Patient denies any hospitalizations or significant changes to interval medical history since last office follow-up. History of Present Illness Patient is a pleasant 79-year-old gentleman who presents today with 8 pound weight loss and significant improvement in his lower extremity edema. He remains with maybe a trace to 1+ ankle edema. It is difficult for him to elevate his legs during the day and he cannot put on compression stockings. He does report that he lies flat in bed at night and his ankles look a little better when he first gets up in the morning. He is tolerating diuretic without any evidence of effective arterial volume depletion. Blood pressure is optimal today. Patient reports that overall has no complaint(s) of chest pain, chest pressure/discomfort, claudication, dyspnea, exertional chest pressure/discomfort, fatigue, and irregular heart beat Daily activity: 4 METs Denies any change in exercise capacity or functional tolerance since last office visit. Review of Systems Cardiovascular: Positive for leg swelling. Negative for chest pain, dyspnea on exertion, irregular heartbeat, near-syncope, orthopnea, palpitations, paroxysmal nocturnal dyspnea and syncope. Visit Vitals BP 122/56 (BP Location: Left arm, Patient Position: Sitting) Pulse 84 Ht 1.727 m (5' 8 ) Wt 140 kg (308 lb) BMI 46.83 kg/m Smoking Status Never BSA 2.59 m Physical Exam Vitals and nursing note reviewed. Constitutional: Appearance: Normal appearance. Cardiovascular: Rate and Rhythm: Normal rate and regular rhythm. Heart sounds: Murmur heard. Systolic murmur is present with a grade of 2/6. Comments: Trace ankle edema bilaterally Pulmonary: Effort: Pulmonary effort is normal. Breath sounds: Normal breath sounds. Musculoskeletal: Cervical back: Full passive range of motion without pain. Right lower leg: No edema. Left lower leg: No edema. Skin: General: Skin is cool. Neurological: Mental Status: He is alert and oriented to person, place, and time. Psychiatric: Attention and Perception: Attention normal. Mood and Affect: Mood normal. Behavior: Behavior is cooperative. ALLERGIES: Nebivolol Current Outpatient Medications Medication Instructions apixaban (Eliquis) 5 mg tablet 1 tablet, 2 times daily baclofen (Lioresal) 10 mg tablet Take 1 tablet (10 mg) by mouth 3 times a day. furosemide (LASIX) 40 mg, oral, Daily gabapentin (Neurontin) 300 mg capsule 1 capsule, Nightly hydrALAZINE (Apresoline) 50 mg tablet 1 tablet, 2 times daily lisinopril 20 mg tablet 1 tablet, Daily loratadine 10 mg capsule 1 capsule, Daily multivit-min/ferrous fumarate (MULTI VITAMIN ORAL) 1 tablet, Daily nystatin (Mycostatin) 100,000 unit/gram powder 1 Application, As needed omega 0-lmo-cen-fish oil 360 mg-108 mg- 180 mg-1,200 mg capsule Take 1 capsule by mouth 2 times a day. oxyCODONE-acetaminophen (Percocet) 5-325 mg tablet 1 tablet, Every 6 hours PRN potassium chloride CR 10 mEq ER tablet 10 mEq, Daily predniSONE (Deltasone) 10 mg tablet 1 tablet, Daily pyridostigmine (MESTINON) 60 mg, 4 times daily simvastatin (Zocor) 40 mg tablet 1 tablet, Nightly spironolactone (ALDACTONE) 25 mg, oral, Daily Assessment: Edema has resolved with improved blood pressure and addition of spironolactone. April 2023 TTE LVEF 60 to 65%, LVH mild. RV function was noted to be normal at that time. Paroxysmal atrial fibrillation maintaining normal sinus rhythm on follow-up Holter. Overall patient is pleased with current state of cardiovascular health. At this time there are no indications for additional cardiovascular testing or need for medication changes. Plan: Through informed decision making process incorporating patients unique circumstances, the followingtreatment plan will be initiated: 1. Prescription drug management of cardiovascular medication for efficacy, adherence to treatment, side effect assessment and polypharmacy. Current treatment clinically warranted and to continue without modifications. 2. Return for follow-up; in the interim, contact the office if new symptoms arise. Dr. Hoover as scheduled Willy Leyva MSN, SENSOR TECHNICIAN-TIRE CARE MANAGER, PMHNP-[facility] [place], [place] Please excuse any errors in grammar or translation related to this dictation. Voice recognition software was utilized to prepare this document. documented in this [facility] Work Phone: [phone]) 254-180705-28-2025 Instructions* Patient Instructions* SHANT Mock - 01/15/2025 10:00 [...] Dr. Hoover as scheduled documented in this [facility] Work Phone: [phone]) 988-640305-19-2025 History of Present illness Narrative* Stanley Saunders DO - 01/06/2025 12:30 PM EDT Images from the original note were not included. Chief Complaint: MG Subjective Taurus Garcia is a 79 y.o. male. History of [...] Diagnosis Date Acute respiratory failure with hypoxia ([facility]) 11/17/2023 Acute respiratory insufficiency 12/15/2018 d/t Pulmonary Emboli MATT (acute kidney injury) ([facility]) 09/17/2024 Allergic rhinitis due to other allergen Autoimmune disorder ([facility]) Bilateral pulmonary embolism ([facility]) 2019 Acute Hypoxic Resp. 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 Cervical radiculopathy at C8 05/2017 CTS (carpal tunnel syndrome) 05/2017 Bilateral Essential hypertension, benign ([facility]) Facial droop Head injury with fracture of skull ([facility]) 09/17/2024 History of being hospitalized 06/19/2024 Myasthenia Gravis Exacerbation, Weakness, Dyspnea History of being hospitalized 07/09/2024 Generalized Weakness, MATT History of being hospitalized 07/28/2024 Syncope, Head injury, Generalized weakness, Hypomagnesemia History of being hospitalized 09/11/2024 Myasthenia Gravis Crisis History of echocardiogram 12/15/2018 EF 60-65%, LVH Hypertension ([facility]) Impaired glucose tolerance test Oral Lumbosacral spondylosis without myelopathy LVH (left ventricular hypertrophy) 12/15/2018 ECHO EF 60-65% Macular edema 2009 /pucker Muscle cramp Myasthenia gravis 12/27/2017 / dyspnea Myasthenic crisis ([facility]) 05/10/2023 Obesity Obstructive sleep apnea (adult) (pediatric) Pulmonary emboli 11/17/2023 Pulmonary embolism 11/2018 Pure hypercholesterolemia ([facility]/HCC) Shortness of breath Superficial thrombophlebitis 12/16/2018 Rt [...] SpO2: 94% Body mass index is 46.04 kg/m . Weight: 302 lb 12.8 oz Neurologic exam: [...] wrist extensors , wrist flexor , and college or university faculty member strength 5/5. LUE strength deltoid , biceps , triceps , wrist extensors , wrist flexor , and college or university faculty member strength 5/5. RLE strength iliopsoas, quadriceps, tibialis [...] reflex 0. LLE knee reflex 0. Coordination: Wydelq-jr-uwjk testing normal. Rapid alternating movements are normal. Gait: Utilizing walker. Review and summary of old records: I reviewed documentation from the patient's inpatient hospitalization at [facility] from 09/11/2024 to 09/13/2024. The patient presented to [facility] at that time due to mild increase [...] from the patient's emergency department visit at [facility] on 02/12/2024. The patient presented with mild [...] MRI of the brain without contrast at [facility] on 02/20/18: Unremarkable EMG of the bilateral upper extremities on 06/19/17: Bilateral median neuropathy such as in carpal tunnel syndrome which is mild in degree electrically. Also a remote right C8 radiculopathy. Assessment/Plan Diagnoses and all orders for this visit: Myasthenia gravis ([facility]) Mr. Pascual is an 79-year-old male with [...] mg PO QID. He reports evaluation at [facility] in late August 2024 due to mild [...] or syncope - I offered referral to [facility] for a second opinion regarding his [...] index (BMI) of45.0 to 49.9 in adult (CMS/HCC) The patient is obese. PLAN: - We [...] [facility] documented in this encounterAlvin J. Siteman Cancer [id number] History of Present illness Narrative* Real Og DPM - 01/02/2025 4:20 PM EDT Patient: Taurus Garcia : 1945 PCP: Komal Schaffer MD SUBJECTIVE This is a 79 y.o. [...] Diagnosis Date Acute respiratory failure with hypoxia ([facility]) 11/17/2023 Acute respiratory insufficiency 12/15/2018 d/t Pulmonary Emboli MATT (acute kidney injury) ([facility]) 09/17/2024 Allergic rhinitis due to other allergen Autoimmune disorder ([facility]) Bilateral pulmonary embolism ([facility]) 2019 Acute Hypoxic Resp. 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 Cervical radiculopathy at C8 05/2017 CTS (carpal tunnel syndrome) 05/2017 Bilateral Essential hypertension, benign ([facility]) Facial droop Head injury with fracture of skull ([facility]) 09/17/2024 History of being hospitalized 06/19/2024 Myasthenia Gravis Exacerbation, Weakness, Dyspnea History of being hospitalized 07/09/2024 Generalized Weakness, MATT History of being hospitalized 07/28/2024 Syncope, Head injury, Generalized weakness, Hypomagnesemia History of being hospitalized 09/11/2024 Myasthenia Gravis Crisis History of echocardiogram 12/15/2018 EF 60-65%, LVH Hypertension ([facility]) Impaired glucose tolerance test Oral Lumbosacral spondylosis without myelopathy LVH (left ventricular hypertrophy) 12/15/2018 ECHO EF 60-65% Macular edema 2009 /pucker Muscle cramp Myasthenia gravis 12/27/2017 / dyspnea Myasthenic crisis ([facility]) 05/10/2023 Obesity Obstructive sleep apnea (adult) (pediatric) Pulmonary emboli 11/17/2023 Pulmonary embolism 11/2018 Pure hypercholesterolemia ([facility]) Shortness of breath Superficial thrombophlebitis 12/16/2018 Rt Thigh Syncope 09/17/2024 Tremor Troponin I above reference range 11/17/2023 Urothelial carcinoma ([facility]) 03/03/2022 High Grade Papillary Urothelial [...] food Oral, Disp: , Rfl: nystatin (Mycostatin) [id number] UNIT/GM powder, APPLY TO THE AFFECTED AREA(S) [...] future Real Og DPM documented in this encounterAlvin J. Siteman Cancer [id number] History of Present illness Narrative* Real Og DPM - 12/12/2024 1:30 PM EDT Patient: Taurus Garcia : 1945 PCP: Komal Schaffer MD SUBJECTIVE This is a 79 y.o. male that presents today for a follow up of left great toe fracture with laceration with cellulitis and has been taking oral antibiotics and using walking boot with positive improvement. Patient rates pain a 3/10. Allergies: No Known Allergies Past Medical History: Past Medical History: Diagnosis Date Acute respiratory failure with hypoxia ([facility]) 11/17/2023 Acute respiratory insufficiency 12/15/2018 d/t Pulmonary Emboli MATT (acute kidney injury) ([facility]) 09/17/2024 Allergic rhinitis due to other allergen Autoimmune disorder ([facility]) Bilateral pulmonary embolism ([facility]) 2019 Acute Hypoxic Resp. 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 Cervical radiculopathy at C8 05/2017 CTS (carpal tunnel syndrome) 05/2017 Bilateral Essential hypertension, benign ([facility]) Facial droop Head injury with fracture of skull ([facility]) 09/17/2024 History of being hospitalized 06/19/2024 Myasthenia Gravis Exacerbation, Weakness, Dyspnea History of being hospitalized 07/09/2024 Generalized Weakness, MATT History of being hospitalized 07/28/2024 Syncope, Head injury, Generalized weakness, Hypomagnesemia History of being hospitalized 09/11/2024 Myasthenia Gravis Crisis History of echocardiogram 12/15/2018 EF 60-65%, LVH Hypertension ([facility]) Impaired glucose tolerance test Oral Lumbosacral spondylosis without myelopathy LVH (left ventricular hypertrophy) 12/15/2018 ECHO EF 60-65% Macular edema 2008 /pucker Muscle cramp Myasthenia gravis 12/27/2017 / dyspnea Myasthenic crisis ([facility]) 05/10/2023 Obesity Obstructive sleep apnea (adult) (pediatric) Pulmonary emboli 11/17/2023 Pulmonary embolism 11/2018 Pure hypercholesterolemia ([facility]) Shortness of breath Superficial thrombophlebitis 12/16/2018 Rt Thigh Syncope 09/17/2024 Tremor Troponin I above reference range 11/17/2023 Urothelial carcinoma ([facility]) 03/03/2022 High Grade Papillary Urothelial [...] food Oral, Disp: , Rfl: nystatin (Mycostatin) [id number] UNIT/GM powder, APPLY TO THE AFFECTED AREA(S) [...] aspect of the left great toe with greatly diminished erythema and negative drainage VASC: Palpable pedal pulsed b/l with warm to cool tibia to toes b/l NEURO: Gross sensation intact digits 1-10 and b/l feet ORTHO: +5/5 DF/PF/IN/EV right, +5/5 DF/PF/IN/EV left. 20 degrees inversion and 10 degrees eversion STJ b/l. Ankle ROM less than 10 degrees b/l. Minimal pain on palpation to distal phalanx of the left great toe XRAY:XR foot 3+ views left Imaging Result: Notable medial distal tuft fracture of the distal phalanx with slight displacement US: ASSESSMENT 1. Laceration of lesser toe of left foot without foreign body present, nail damage status unspecified, initial encounter 2. Closed nondisplaced fracture of distal phalanx of left great toe, initial encounter PLAN Reviewed xrays today with patient Patient continue with walking boot will follow up in 3 weeks Patient to continue with oral anti - inflammatories as needed for pain and recommended OTC medications such as tylenol or Ibuprofen Patient apply Betadine daily to the left great toe Real Og DPM documented in this encounterAlvin J. Siteman Cancer [id number] History of Present illness Narrative* Real Og DPM - 12/05/2024 2:40 PM EDT Patient: Taurus Garcia : 1945 PCP: Komal Schaffer MD SUBJECTIVE This is a 79 y.o. male that presents today for a chief complaint of some pain to left great toe andhad ER visit 6 days ago with mention of fracture to left great toe as well as laceration left greattoe with sutures intact and denies nausea vomiting chills and current taking oral antibiotics for prophylaxis. Allergies: No Known Allergies Past Medical History: Past Medical History: Diagnosis Date Acute respiratory failure with hypoxia (CMS/HCC) 11/17/2023 Acute respiratory insufficiency 12/15/2018 d/t Pulmonary Emboli MATT (acute kidney injury) ([facility]) 09/17/2024 Allergic rhinitis due to other allergen Autoimmune disorder ([facility]) Bilateral pulmonary embolism ([facility]) 2019 Acute Hypoxic Resp. 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 Cervical radiculopathy at C8 05/2017 CTS (carpal tunnel syndrome) 05/2017 Bilateral Essential hypertension, benign ([facility]) Facial droop Head injury with fracture of skull ([facility]) 09/17/2024 History of being hospitalized 06/19/2024 Myasthenia Gravis Exacerbation, Weakness, Dyspnea History of being hospitalized 07/09/2024 Generalized Weakness, MATT History of being hospitalized 07/28/2024 Syncope, Head injury, Generalized weakness, Hypomagnesemia History of being hospitalized 09/11/2024 Myasthenia Gravis Crisis History of echocardiogram 12/15/2018 EF 60-65%, LVH Hypertension ([facility]) Impaired glucose tolerance test Oral Lumbosacral spondylosis without myelopathy LVH (left ventricular hypertrophy) 12/15/2018 ECHO EF 60-65% Macular edema 2009 /pucker Muscle cramp Myasthenia gravis 12/27/2017 / dyspnea Myasthenic crisis ([facility]) 05/10/2023 Obesity Obstructive sleep apnea (adult) (pediatric) Pulmonary emboli 11/17/2023 Pulmonary embolism 11/2018 Pure hypercholesterolemia ([facility]) Shortness of breath Superficial thrombophlebitis 12/16/2018 Rt Thigh Syncope 09/17/2024 Tremor Troponin I above reference range 11/17/2023 Urothelial carcinoma ([facility]) 03/03/2022 High Grade Papillary Urothelial [...] food Oral, Disp: , Rfl: nystatin (Mycostatin) [id number] UNIT/GM powder, APPLY TO THE AFFECTED AREA(S) [...] aspect of the left great toe with slight erythema and negative drainage VASC: Palpable pedal pulsed b/l with warm to cool tibia to toes b/l NEURO: Gross sensation intact digits 1-10 and b/l feet ORTHO: +5/5 DF/PF/IN/EV right, +5/5 DF/PF/IN/EV left. 20 degrees inversion and 10 degrees eversion STJ b/l. Ankle ROM less than 10 degrees b/l. Minimal pain on palpation to distal phalanx of the left great toe XRAY: US: ASSESSMENT 1. Laceration of lesser toe of left foot without foreign body present, nail damage status unspecified, initial encounter 2. Closed nondisplaced fracture of distal phalanx of left great toe, initial encounter PLAN Dry sterile dressing applied and patient given postop shoe and to be partial weight-bearing to leftfoot and will follow up in 1 week for x-rays and possible suture removal Real Og DPM documented in this encounterAlvin J. Siteman Cancer [id number] History of Present illness Narrative* Leela Bocanegra, ANAMARIA - 12/05/2024 2:00 PM EDT Images from the original note were not included. Subjective Patient ID: Taurus Garcia is a 79 y.o. male who presents for No chief complaint on file.. Taurus presents today for a an ER F/U for a left great toe fracture. Patient states that he fell when he got out of the chair. Stopped for 9 days then had a fall. Required sutures to his toe. He is having pain in lower half ofthe body and feels weak. He would benefit from some in home PT to improve mobility. Current Outpatient Medications on File Prior to [...] the morning and 500 mg before bedtime. clotrimazole (Lotrimin) 1 % cream Apply topically 2 (two) times a day 30 g 5 furosemide (Lasix) 20 MG tablet Take 1-2 [...] ORAL route every day with food Oral nystatin (Mycostatin) [id number] UNIT/GM powder APPLY TO THE AFFECTED AREA(S) THREE TIMES DAILY FOR 30 DAYS omega-3 (Fish Oil) 1000 MG capsule Take 2 capsules by mouth in the morning. oxyCODONE-acetaminophen (Percocet) 5-325 MG tablet Take 1 tablet by mouth 2 (two) times a day as needed potassium chloride CR (Klor-Con M10) 10 MEQ [...] d/t Pulmonary Emboli MATT (acute kidney injury) (CMS/HCC) 09/17/2024 Allergic rhinitis due to other allergen Autoimmune disorder ([facility]) Bilateral pulmonary embolism (CMS/HCC) 2019 Acute Hypoxic Resp. 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 Cervical radiculopathy at C8 05/2017 CTS (carpal tunnel syndrome) 05/2017 Bilateral Essential hypertension, benign (CMS/[facility]) Facial droop Head injury with fracture of skull (CMS/[facility]) 09/17/2024 History of being hospitalized 06/19/2024 Myasthenia Gravis Exacerbation, Weakness, Dyspnea History of being hospitalized 07/09/2024 Generalized Weakness, MATT History of being hospitalized 07/28/2024 Syncope, Head injury, Generalized weakness, Hypomagnesemia History of being hospitalized 09/11/2024 Myasthenia Gravis Crisis History of echocardiogram 12/15/2018 EF 60-65%, LVH Hypertension ([facility]) Impaired glucose tolerance test Oral Lumbosacral spondylosis without myelopathy LVH (left ventricular hypertrophy) 12/15/2018 ECHO EF 60-65% Macular edema 2008 /pucker Muscle cramp Myasthenia gravis 12/27/2017 / dyspnea Myasthenic crisis ([facility]) 05/10/2023 Obesity Obstructive sleep apnea (adult) (pediatric) Pulmonary emboli 11/17/2023 Pulmonary embolism 11/2018 Pure hypercholesterolemia ([facility]) Shortness of breath Superficial thrombophlebitis 12/16/2018 Rt Thigh Syncope 09/17/2024 Tremor Troponin I above reference range 11/17/2023 Urothelial carcinoma ([facility]/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 Genitourinary: Negative. Musculoskeletal: Positive for arthralgias and myalgias. Skin: Negative. Neurological: Positive for weakness. Psychiatric/Behavioral: Negative. All other systems reviewed and are negative. Endocrine: Negative. Objective Physical Exam Vitals reviewed. Constitutional: Appearance: Normal appearance. HENT: Head: Normocephalic. Nose: Nose normal. Mouth/Throat: Mouth: Mucous membranes are moist. Pharynx: Oropharynx is clear. Eyes: Conjunctiva/sclera: Conjunctivae normal. Cardiovascular: Rate and Rhythm: Normal rate. Pulmonary: Effort: Pulmonary effort is normal. Skin: General: Skin is warm and dry. Comments: Dressing to left great toe Neurological: General: No focal deficit present. Mental Status: He is alert and oriented to person, place, and time. Psychiatric: Mood and Affect: Mood normal. Behavior: Behavior normal. Thought Content: Thought content normal. Judgment: Judgment normal. Assessment/Plan Diagnoses and all orders for this visit: Fall, subsequent encounter - Ambulatory referral to Home Health; Future Pt would benefit from therapy due to recent falls. PT ordered. Decreased mobility - Ambulatory referral to Home Health; Future Pt would benefit from therapy due to recent falls. PT ordered. Weakness - Ambulatory referral to Home Health; Future Pt would benefit from therapy due to recent falls. PT ordered. Pain - Ambulatory referral to Home Health; Future - oxyCODONE-acetaminophen (Percocet) 5-325 MG tablet; Take 1 tablet by mouth 2 (two) times a day asneeded for moderate pain or severe pain Pt would benefit from therapy due to recent falls. PT ordered. No follow-ups on file. documented in this encounterAlvin J. Siteman Cancer [id number] History of Present illness Narrative* Real Og DPM - 11/21/2024 2:40 PM EDT Patient: Taurus Garcia : 1945 PCP: Komal Schaffer MD SUBJECTIVE This is a 79 y.o. [...] Diagnosis Date Acute respiratory failure with hypoxia ([facility]) 11/17/2023 Acute respiratory insufficiency 12/15/2018 d/t Pulmonary Emboli MATT (acute kidney injury) ([facility]) 09/17/2024 Allergic rhinitis due to other allergen Autoimmune disorder ([facility]) Bilateral pulmonary embolism ([facility]) 2019 Acute Hypoxic Resp. 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 Cervical radiculopathy at C8 05/2017 CTS (carpal tunnel syndrome) 05/2017 Bilateral Essential hypertension, benign ([facility]) Facial droop Head injury with fracture of skull ([facility]) 09/17/2024 History of being hospitalized 06/19/2024 Myasthenia Gravis Exacerbation, Weakness, Dyspnea History of being hospitalized 07/09/2024 Generalized Weakness, MATT History of being hospitalized 07/28/2024 Syncope, Head injury, Generalized weakness, Hypomagnesemia History of being hospitalized 09/11/2024 Myasthenia Gravis Crisis History of echocardiogram 12/15/2018 EF 60-65%, LVH Hypertension ([facility]) Impaired glucose tolerance test Oral Lumbosacral spondylosis without myelopathy LVH (left ventricular hypertrophy) 12/15/2018 ECHO EF 60-65% Macular edema 2009 /pucker Muscle cramp Myasthenia gravis (CMS/[facility]) 12/27/2017 / dyspnea Myasthenic crisis (CMS/[facility]) 05/10/2023 Obesity Obstructive sleep apnea (adult) (pediatric) Pulmonary emboli ([facility]) 11/17/2023 Pulmonary embolism ([facility]) 11/2018 Pure hypercholesterolemia ([facility]) Shortness of breath Superficial thrombophlebitis 12/16/2018 Rt Thigh Syncope 09/17/2024 Tremor Troponin I above reference range 11/17/2023 Urothelial carcinoma ([facility]) 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 UTI, Myasthenia Gravis, JORDAN 02/21/2018 Medications: Current Outpatient Medications: apixaban (Eliquis) 5 MG tablet, TAKE 1 TABLET BY MOUTH TWICE DAILY, Disp: 180 tablet, Rfl: 3 baclofen (Lioresal) 10 MG tablet, TAKE 1 TABLET BY MOUTH WITH FOOD OR MILK 3 TIMES DAILY, Disp: 270tablet, Rfl: 1 clotrimazole (Lotrimin) 1 % cream, Apply topically 2 (two) times a day, Disp: 30 g, Rfl: 5 furosemide (Lasix) 20 MG tablet, Take 1-2 tablets (20-40 mg) by mouth Daily, Disp: , Rfl: gabapentin (Neurontin) 300 MG capsule, TAKE 1 [...] food Oral, Disp: , Rfl: nystatin (Mycostatin) 233516 UNIT/GM powder, APPLY TO THE AFFECTED AREA(S) THREE TIMES DAILY FOR 30DAYS, Disp: , Rfl: omega-3 (Fish Oil) 1000 MG capsule, Take 2 capsules by mouth in the morning., Disp: , Rfl: oxyCODONE-acetaminophen (Percocet) 5-325 MG tablet, Take 1 tablet by mouth 2 (two) times a day as needed, Disp: , Rfl: predniSONE (Deltasone) 10 MG tablet, TAKE 1 AND 1/2 TABLETS BY MOUTH DAILY, Disp: 90 tablet, Rfl: 0 pyridostigmine (Mestinon) 60 MG [...] min Stress: No Stress Concern Present (03/17/2023) [employer] [place] [employer] - Occupational Stress Questionnaire Feeling of Stress : Only a little Social Connections: Moderately Isolated (03/17/2023) Social Connection and Isolation Panel [NHANES] Frequency of Communication with Friends and Family: More than three times a week Frequency of Social Gatherings with Friends and Family: Once a week Attends [employer] Services: Never Active Member of Clubs or [...] condition. Real Og DPM documented in this encounterAlvin J. Siteman Cancer [id number] Evaluation + Plan note* Assessment & Plan Note - SHANT Mock - 11/04/2024 4:29 PM EDT Associated Problem(s): Localized edema Presents to the office today with a 3-week history of progressive increasing bilateral lower extremity edema. He has gained approximately 8 pounds over the last 2 weeks. PCP increase Lasix 40 mg daily x 5 days (last dose yesterday) minimal benefit. [facility] Work Phone: [phone] 307-189803-17-2025 Miscellaneous Notes* Assessment & Plan Note - SHANT Mock - 11/04/2024 4:29 PM EDTAssociated Problem(s): Localized edema Presents to the office today with a 3-week history of progressive increasing bilateral lower extremity edema. He has gained approximately 8 pounds over the last 2 weeks. PCP increase Lasix 40 mg daily x 5 days (last dose yesterday) minimal benefit. * Assessment & Plan Note - SHANT Mock - 11/04/2024 4:28 PM EDT Associated Problem(s): BMI 45.0-49.9, adult (Multi) Reviewed the merits of healthy lifestyle choices on overall cardiovascular health. * Assessment & Plan Note - SHANT Mock - 11/04/2024 4:28 PM EDT Associated Problem(s): Essential hypertension Presents with reported elevated blood pressure with recent fluid retention. * Assessment & Plan Note - SHANT Mock - 11/04/2024 4:28 PM EDT Associated Problem(s): Paroxysmal atrial fibrillation (Multi) EKG last week was sinus rhythm with PVC. documented in this encounterGood [facility]itan Hospital Work Phone: [phone] Evaluation + Plan note* Assessment & Plan Note - SHANT Mock - 11/04/2024 4:28 PM EDTAssociated Problem(s): BMI 45.0-49.9, adult (Multi) Reviewed the merits of healthy lifestyle choices on overall cardiovascular health. [facility] Work Phone: [phone] 663-251503-17-2025 Evaluation + Plan note* Assessment & Plan Note - SHANT Mock - 11/04/2024 4:28 PM EDTAssociated Problem(s): Essential hypertension Presents with reported elevated blood pressure with recent fluid retention. [facility] Work Phone: [phone] Evaluation + Plan note* Assessment & Plan Note - SHANT Mock - 11/04/2024 4:28 PM EDTAssociated Problem(s): Paroxysmal atrial fibrillation (Multi) EKG last week was sinus rhythm with PVC. [facility] Work Phone: [phone] [phone] History of Present illness Narrative* SHANT Mock - 11/04/2024 12:00 PM EDT Chief Complaint my legs have been swelling of my blood pressure has been high Reason for Visit Add-on Patient presents to the office today for outpatient follow-up for symptoms of edema and acceleratedhypertension. Last evaluated in clinic by Dr. Hoover September 2024. Presents today ambulatory with wheeled walker and steady gait. Accompanied by spouse Patient denies any hospitalizations or significant changes to interval medical history since last office follow-up. History of Present Illness Patient is a very pleasant 79-year-old gentleman who reports a 3-week history of increasing bilateral lower extremity edema. He reports he has been retaining fluid and is gained approximately 8 pounds over 2 weeks. PCP recently increased Lasix 40 mg over the last 5 days with some benefit but nothing significant. He lies supine in his bed at night, he tries to elevate his legs throughout the day, he would be unable to tolerate compression stockings. He reports that with this fluid retention heseems to be getting a little more short of breath . No noted dyspnea ambulating from the back up to the front of the office. He remains compliant with CPAP treatment. Most recent labs show potassium3.6, creatinine 1.0. Recent EKG sinus rhythm with PVC. Regular auscultatory rate and rhythm on exam today. April 2023 TTE LVEF 60 to 65%, LVH mild. RV function was noted to be normal at that time. Patient reports that overall has no complaint(s) of chest pain, chest pressure/discomfort, claudication, exertional chest pressure/discomfort, irregular heart beat, and near-syncope No increase fluid fluid intake, monitors his sodium. No offending medication. Question if related to paroxysmal atrial fibrillation will check Holter monitor. Low threshold to repeat echocardiogram. May need to consider transition over to Demadex. Review of Systems Cardiovascular: Positive for dyspnea on exertion and leg swelling. Negative for chest pain, irregular heartbeat, near-syncope, orthopnea, palpitations, paroxysmal nocturnal dyspnea and syncope. Visit Vitals BP 166/84 (BP Location: Left arm, Patient Position: Sitting) Pulse 64 Ht 1.727 m (5' 8 ) Wt 142 kg (314 lb) BMI 47.74 kg/m Smoking Status Never BSA 2.61 m Physical Exam Vitals and nursing note reviewed. Constitutional: Appearance: Normal appearance. Cardiovascular: Rate and Rhythm: Normal rate and regular rhythm. Heart sounds: Normal heart sounds. Pulmonary: Effort: Pulmonary effort is normal. Breath sounds: Normal breath sounds. Musculoskeletal: Cervical back: Full passive range of motion without pain. Right lower le+ Pitting Edema present. Left lower le+ Pitting Edema present. Skin: General: Skin is cool. Neurological: Mental Status: He is alert and oriented to person, place, and time. Psychiatric: Attention and Perception: Attention normal. Mood and Affect: Mood normal. Behavior: Behavior is cooperative. Allergies Allergen Reactions Nebivolol Hallucinations Current Outpatient Medications Medication Instructions apixaban (Eliquis) 5 mg tablet 1 tablet, 2 times daily baclofen (Lioresal) 10 mg tablet TAKE 1 TABLET 3 TIMES DAILY NEEDED FOR MUSCLE SPASM. furosemide (LASIX) 40 mg, oral, Daily gabapentin (Neurontin) 300 mg capsule 1 capsule, Nightly hydrALAZINE (Apresoline) 50 mg tablet 1 tablet, 2 times daily lisinopril 20 mg tablet 1 tablet, Daily loratadine 10 mg capsule 1 capsule, Daily multivit-min/ferrous fumarate (MULTI VITAMIN ORAL) 1 tablet, Daily omega 0-xiw-qtw-fish oil 360 mg-108 mg- 180 mg-1,200 mg capsule TAKE DIRECTED. potassium chloride CR 10 mEq ER tablet 10 mEq, Daily predniSONE (Deltasone) 10 mg tablet 1 tablet, Daily pyridostigmine (MESTINON) 60 mg, 4 times daily simvastatin (Zocor) 40 mg tablet 1 tablet, Nightly spironolactone (ALDACTONE) 25 mg, oral, Daily Assessment: Paroxysmal atrial fibrillation (Multi) EKG last week was sinus rhythm with PVC. Essential hypertension Presents with reported elevated blood pressure with recent fluid retention. BMI 45.0-49.9, adult (Multi) Reviewed the merits of healthy lifestyle choices on overall cardiovascular health. Localized edema Presents to the office today with a 3-week history of progressive increasing bilateral lower extremity edema. He has gained approximately 8 pounds over the last 2 weeks. PCP increase Lasix 40 mg daily x 5 days (last dose yesterday) minimal benefit. Plan: Through informed decision making process incorporating patients unique circumstances, the followingtreatment plan will be initiated: 1. Prescription drug management of cardiovascular medication for efficacy, adherence to treatment, side effect assessment and polypharmacy. Current treatment clinically warranted and to continue withfollowing modifications: - Increase furosemide 40mg daily - Begin spironolactone 25mg daily 2. 48 hour holter (palpitations, paf) 3. Labs (chem6 in one week) 4. I will call you to see how things are going 5. Return for follow-up; in the interim, contact the office if new symptoms arise. BRIM SETTER one month Willy Leyva MSN, SENSOR TECHNICIAN-TIRE CARE MANAGER, PMHNP-[facility] [place], [place] Please excuse any errors in grammar or translation related to this dictation. Voice recognition software was utilized to prepare this document. documented in this [facility] Work Phone: [phone] Instructions* Patient Instructions* SHANT Mock - 11/04/2024 12:00 PM EDT Please bring all medicines, vitamins, and [...] Current treatment clinically warranted and to continue withfollowing modifications: - Increase furosemide 40mg daily - Begin spironolactone 25mg daily 2. 48 hour holter (palpitations, paf) 3. Labs (chem6 in one week) 4. I will call you to see how things are going 5. Return for follow-up; in the interim, contact the office if new symptoms arise. BRIM SETTER one month documented in this encounterGood [facility]aritan [facility] Work Phone: [phone] 369-282402-21-2025 History of Present illness Narrative* Jimena Rice CMA - 10/11/2024 3:00 PM EST Patient here for EKG visit ordered by Willy Leyva BRIM SETTER due to bradycardia. Willy Leyva BRIM SETTER in suite to review EKG prior to discharge. Patient here due to SBP in the 170's, HR 48. Medication list Updated verbally. Patient complains of increased shortness of breath, fatigue, BLE edema with theleft being worse. Patient has no other cardiac complaints at time of visit. Patient's PCP increasedFurosemide 20 mg to 40 mg daily for one week, triamterene- hydrochlorothiazide was discontinued. Perverbal orders patient is to have a chem-6 due to the lasix increase. To Willy Leyva BRIM SETTER to read To Dr. Hoover for review upon return Vitals: 10/11/24 1502 BP: 148/80 BP Location: Right arm Patient Position: Sitting Pulse: 63 Weight: 141 kg (310 lb) Height: 1.727 m (5' 8 ) EKG done in office today documented in this encounterGood [facility]aritan Hospital Work Phone: [phone] History of Present illness Narrative* Leela Bocanegra NP - 10/09/2024 10:00 AM EST Images from the original note were not included. Subjective Patient ID: Taurus Garcia is a 79 y.o. male who presents for leg swelling. Taurus presents today for B/L leg swelling. This has been gong on for over a week. Current Outpatient Medications on File Prior to Visit Medication Sig Dispense Refill apixaban (Eliquis) 5 MG tablet TAKE 1 TABLET BY MOUTH TWICE DAILY 180 tablet 3 baclofen (Lioresal) 10 MG tablet TAKE 1 TABLET BY MOUTH WITH FOOD OR MILK 3 TIMES DAILY 270 tablet 1 furosemide (Lasix) 20 MG tablet TAKE 1 TABLET BY MOUTH ONCE DAILY 90 tablet 3 gabapentin (Neurontin) 300 MG capsule Take 1 capsule (300 mg) by mouth in the morning and 1 capsule(300 mg) before bedtime. 180 capsule 3 hydrALAZINE (Apresoline) 50 MG tablet Take 50 mg by mouth in the morning and 50 mg before bedtime. lisinopril 20 MG tablet Take 1 tablet (20 mg) by mouth Daily 90 tablet 3 loratadine (Claritin) 10 MG tablet Take 10 mg by mouth in the morning. Multiple Vitamins-Minerals (GNP ONE DAILY MENS 50+ADVANCED PO) take 1 tablet by ORAL route every day with food Oral nebivolol (Bystolic) 10 MG tablet Take 1 tablet (10 mg) by mouth Daily (Patient not taking: Reported on 09/17/2024) 100 tablet 3 nystatin (Mycostatin) 433256 UNIT/GM powder APPLY TO THE AFFECTED AREA(S) THREE TIMES DAILY FOR 30 DAYS omega-3 (Fish Oil) 1000 MG capsule Take 2 capsules by mouth in the morning. oxyCODONE-acetaminophen (Percocet) 5-325 MG tablet Take 1 tablet by mouth 2 (two) times a day as needed potassium chloride CR (Klor-Con M10) 10 MEQ ER tablet Take 1 tablet (10 mEq) by mouth in the morning and 1 tablet (10 mEq) before bedtime. Take with food.. 180 tablet 3 predniSONE (Deltasone) 10 MG tablet TAKE 1 AND 1/2 TABLETS BY MOUTH DAILY 90 tablet 0 pyridostigmine (Mestinon) 60 MG tablet [...] Diagnosis Date Acute respiratory failure with hypoxia ([facility]) 11/17/2023 Acute respiratory insufficiency 12/15/2018 d/t Pulmonary Emboli MATT (acute kidney injury) ([facility]) 09/17/2024 Allergic rhinitis due to other allergen Autoimmune disorder ([facility]) Bilateral pulmonary embolism ([facility]) 2019 Acute Hypoxic Resp. 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 Cervical radiculopathy at C8 05/2017 CTS (carpal tunnel syndrome) 05/2017 Bilateral Essential hypertension, benign ([facility]) Facial droop Head injury with fracture of skull ([facility]) 09/17/2024 History of being hospitalized 06/19/2024 Myasthenia Gravis Exacerbation, Weakness, Dyspnea History of being hospitalized 07/09/2024 Generalized Weakness, MATT History of being hospitalized 07/28/2024 Syncope, Head injury, Generalized weakness, Hypomagnesemia History of being hospitalized 09/11/2024 Myasthenia Gravis Crisis History of echocardiogram 12/15/2018 EF 60-65%, LVH Hypertension ([facility]) Impaired glucose tolerance test Oral Lumbosacral spondylosis without myelopathy LVH (left ventricular hypertrophy) 12/15/2018 ECHO EF 60-65% Macular edema 2008 /pucker Muscle cramp Myasthenia gravis ([facility]) 12/27/2017 / dyspnea Myasthenic crisis ([facility]) 05/10/2023 Obesity Obstructive sleep apnea (adult) (pediatric) Pulmonary emboli ([facility]) 11/17/2023 Pulmonary embolism ([facility]) 11/2018 Pure hypercholesterolemia ([facility]) Shortness of breath Superficial thrombophlebitis 12/16/2018 Rt Thigh Syncope 09/17/2024 Tremor Troponin I above reference range 11/17/2023 Urothelial carcinoma ([facility]) 03/03/2022 High Grade Papillary Urothelial [...] HENT: Negative. Eyes: Negative. Respiratory: Negative. Cardiovascular: Positive for leg swelling. Gastrointestinal: Negative. Genitourinary: Negative. Musculoskeletal: Negative. Skin: Negative. Neurological: Positive for weakness. Psychiatric/Behavioral: Negative. Objective Physical Exam Vitals reviewed. Constitutional: Appearance: Normal appearance. HENT: Head: Normocephalic. Nose: Nose normal. Mouth/Throat: Mouth: Mucous membranes are moist. Pharynx: Oropharynx is clear. Eyes: Conjunctiva/sclera: Conjunctivae normal. Cardiovascular: Rate and Rhythm: Bradycardia present. Rhythm irregular. Comments: Heart beat skips every 3rd beat Pulmonary: Effort: Pulmonary effort is normal. Breath sounds: Normal breath sounds. Musculoskeletal: Right lower leg: Edema present. Left lower leg: Edema present. Skin: General: Skin is warm and dry. Comments: Vascular discoloration to BLE, no increased warmth Neurological: General: No focal deficit present. Mental Status: He is alert and oriented to person, place, and time. Psychiatric: Mood and Affect: Mood normal. Behavior: Behavior normal. Thought Content: Thought content normal. Judgment: Judgment normal. Assessment/Plan Diagnoses and all orders for this visit: Benign essential hypertension (CMS/HCC) - hydrALAZINE (Apresoline) 50 MG tablet; Take 1 tablet (50 mg) by mouth in the morning and 1 tablet(50 mg) before bedtime. - Comprehensive metabolic panel; Future Patient's blood pressure is currently uncontrolled. Pt was taken off several BP meds as his blood pressure was too low. Will add the Hydralazine back. Due to the elevated BP and low HR, pt was instructed to call cardiology. Goal BP remains less than 130/80. Yeast dermatitis - clotrimazole (Lotrimin) 1 % cream; Apply topically 2 (two) times a day This is a chronic medical condition that is stable since last assessment. No changes in treatment are suggested at this time. Bradycardia - Comprehensive metabolic panel; Future Pt was instructed to call cardiology as his HR is in the 40s and he is weak with an elevated BP. Hydralazine was added back today. No follow-ups on file. documented in this encounterAlvin J. Siteman Cancer [id number] Telephone encounter Note* Telephone Encounter - TEMITOPE Serrano - 09/18/2024 10:37 AM EST Acknowledged. [facility] S[facility] Cancer [id number] Miscellaneous Notes* Telephone Encounter - TEMITOPE Serrano - 09/18/2024 10:37 AM EST Acknowledged. documented in this encounterAlvin J. Siteman Cancer [id number] History of Present illness Narrative* TEMITOPE Serrano - 09/17/2024 2:30 PM EST Images from the original note were not included. Subjective Patient ID: Taurus Garcia is a 78 y.o. male who presents for [facility] hospital follow up. Flowsheet Row Patient Outreach from 09/10/2024 in [facility] with Dee Haddad LPN Hospital Information ED, Hospital or [facility] Facility Discharge? [facility] Facility Patient has been contacted within two business days of discharge No [due to not know he was discharged in a timely manner] Have two attempts been made to contact the patient within two business days of being discharged? No Discharge Date 09/05/24 Discharged To: Home Setting [facility] Facilities Lidya Richards Admission Date 07/31/24 Medications Discharge medications reviewed and reconciled from hospital? No [PT COULD NOT GO OVER MEDS AT THIS TIME HE STATES HE WILL BRING THEM TO THE OFFICE TOMORROW FOR HIS APPT] Does the patient have all medications ordered at discharge? Not applicable Appointments Does the patient have a primary care provider? Yes Nursing Interventions Verified appointment date/time/provider [09/11/2024] Self Management Does patient have home health yes What is the home health agency? [facility] ONLY Has home health visited the patient within 72 hours of discharge? Yes Patient Teaching Does the patient have access to their discharge instructions? No What is the patient's perception of their health status since discharge? Improving Wrap Up Wrap Up Additional Comments: Patient states he just got done with physical therapy prior to coming in for his appointment today. Has PT coming to the house and have been very helpful. He is tired after PT, but is making progress, feels like he is getting stronger every day. He does get SOB with exertion still. Admits legs are swelling. When he was in [facility] [place] he had a lift chair and was able to keep his legs elevated. They didn't swell like they are now. Admits he does not elevate them like he should, uses a recliner. Current Outpatient Medications on File Prior to Visit Medication Sig Dispense Refill oxyCODONE-acetaminophen (Percocet) 5-325 MG tablet Take 1 tablet by mouth 2 (two) times a day as needed [DISCONTINUED] acetaminophen (Tylenol) 325 MG tablet Q4H as needed for Pain Scale 1 - 3 or fever apixaban (Eliquis) 5 MG tablet TAKE 1 TABLET BY MOUTH TWICE DAILY 180 tablet 3 baclofen (Lioresal) 10 MG tablet TAKE 1 TABLET BY MOUTH WITH FOOD OR MILK 3 TIMES DAILY 270 tablet 1 furosemide (Lasix) 20 MG tablet TAKE 1 TABLET BY MOUTH ONCE DAILY 90 tablet 3 gabapentin (Neurontin) 300 MG capsule Take 1 capsule (300 mg) by mouth in the morning and 1 capsule(300 mg) before bedtime. 180 capsule 3 hydrALAZINE (Apresoline) 50 MG tablet Take 50 mg by mouth in the morning and 50 mg before bedtime. lisinopril 20 MG tablet Take 1 tablet (20 mg) by mouth Daily 90 tablet 3 loratadine (Claritin) 10 MG tablet Take 10 mg by mouth in the morning. Multiple Vitamins-Minerals (GNP ONE DAILY MENS 50+ADVANCED PO) take 1 tablet by ORAL route every day with food Oral nebivolol (Bystolic) 10 MG tablet Take 1 tablet (10 mg) by mouth Daily (Patient not taking: Reported on 09/17/2024) 100 tablet 3 nystatin (Mycostatin) [id number] UNIT/GM powder APPLY TO THE AFFECTED AREA(S) [...] 1 AND 1/2 TABLETS BY MOUTH DAILY 90 tablet 0 pyridostigmine (Mestinon) 60 MG tablet TAKE 1 TABLET BY MOUTH IN THE MORNING AND 1 TABLET BY MOUTH AT NOON AND 1 TABLET BY MOUTH IN THE EVENING AND 1 TABLET BY MOUTH BEFORE BEDTIME 400 tablet 3 simvastatin (Zocor) 40 MG tablet TAKE 1 TABLET BY MOUTH ONCE DAILY IN THE EVENING 90 tablet 3 [DISCONTINUED] furosemide (Lasix) 20 MG tablet Take 1 tablet (20 mg) by mouth in the morning. 100 tablet 3 [DISCONTINUED] HYDROcodone-acetaminophen ([place]) 5-325 MG tablet Take 1 tablet by mouth Daily as needed for moderate pain or severe pain (Patient not taking: Reported on 09/17/2024) 30 tablet 0 [DISCONTINUED] triamterene-hydrochlorothiazide (Maxzide-25) 37.5-25 MG tablet Take 1 tablet by mouth Daily (Patient not taking: Reported on 09/17/2024) 100 tablet 3 No current facility-administered medications on file prior to visit. I have reviewed and reconciled the history and medication list with the patient today. No Known Allergies Social History Tobacco Use Smoking status: Never Smokeless tobacco: Never Vaping Use Vaping status: Never Used Substance Use Topics Alcohol use: Yes Family History Problem Relation Name Age of Onset Cancer Mother Heart disease Father *denies family hx of MM Heart disease Other Multiple myeloma Neg Hx Past Medical History: Diagnosis Date Acute respiratory failure with hypoxia (CMS/HCC) 11/17/2023 Acute respiratory insufficiency 12/15/2018 d/t Pulmonary Emboli MATT (acute kidney injury) (CMS/HCC) 09/17/2024 Allergic rhinitis due to other allergen Autoimmune disorder (CMS/HCC) Bilateral pulmonary embolism (CMS/HCC) 2019 Acute Hypoxic Resp. 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 Cervical radiculopathy at C8 05/2017 CTS (carpal tunnel syndrome) 05/2017 Bilateral Essential hypertension, benign (CMS/HCC) Facial droop Head injury with fracture of skull (CMS/HCC) 09/17/2024 History of being hospitalized 06/19/2024 Myasthenia Gravis Exacerbation, Weakness, Dyspnea History of being hospitalized 07/09/2024 Generalized Weakness, MATT History of being hospitalized 07/28/2024 Syncope, Head injury, Generalized weakness, Hypomagnesemia History of being hospitalized 09/11/2024 Myasthenia Gravis Crisis History of echocardiogram 12/15/2018 EF 60-65%, LVH Hypertension (CMS/[facility]) Impaired glucose tolerance test Oral Lumbosacral spondylosis without myelopathy LVH (left ventricular hypertrophy) 12/15/2018 ECHO EF 60-65% Macular edema 2009 /pucker Muscle cramp Myasthenia gravis (CMS/HCC) 12/27/2017 / dyspnea Myasthenic crisis ([facility]) 05/10/2023 Obesity Obstructive sleep apnea (adult) (pediatric) Pulmonary emboli (CMS/HCC) 11/17/2023 Pulmonary embolism (CMS/HCC) 11/2018 Pure hypercholesterolemia ([facility]) Shortness of breath Superficial thrombophlebitis 12/16/2018 Rt Thigh Syncope 09/17/2024 Tremor Troponin I above reference range 11/17/2023 Urothelial carcinoma ([facility]/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 Respiratory: Negative for cough, shortness of breath and wheezing. Cardiovascular: Negative for chest pain, palpitations and leg swelling. Gastrointestinal: Negative for abdominal pain, constipation, diarrhea, nausea and vomiting. Skin: Negative for rash. Neurological: Positive for weakness. Objective Physical Exam Constitutional: General: He is not in acute distress. Appearance: He is obese. HENT: Head: Normocephalic and atraumatic. Eyes: General: No scleral icterus. Comments: Right eye ptosis Cardiovascular: Rate and Rhythm: Normal rate and regular rhythm. Heart sounds: No murmur heard. Pulmonary: Effort: Pulmonary effort is normal. No respiratory distress. Breath sounds: Normal breath sounds. No wheezing, rhonchi or rales. Musculoskeletal: General: No swelling. Right lower le+ Pitting Edema present. Left lower le+ Pitting Edema present. Skin: General: Skin is warm and dry. Neurological: General: No focal deficit present. Mental Status: He is alert and oriented to person, place, and time. Gait: Gait abnormal (Rolling walker). Psychiatric: Mood and Affect: Mood normal. Behavior: Behavior normal. Office Visit on 09/17/2024 Component Date Value Ref Range Status Hemoglobin A1C 09/17/2024 6.2 Final Assessment/Plan Diagnoses and all orders for this visit: Myasthenia gravis (CMS/HCC) Encouraged pt to keep his scheduled appointment with Neurology on 10/15/2024. Type 2 diabetes mellitus with diabetic neuropathy, without long-term current use of insulin ([facility]) - POCT Glycated hemoglobin, total Advised pt that his HgbA1c is well controlled at 6.4 with diet alone. Will plan to recheck in 6 months. Myasthenic crisis (CMS/HCC) The patient was seen today in follow up of recent hospital stay. All available hospital records were reviewed and discussed with the patient. Hospital discharge meds were reviewed. Any changes are asnoted. Generalized weakness Has noted gradual improvement with Physical Therapy. Encouraged him to continue with that as scheduled. Benign essential hypertension (CMS/HCC) BP is on the lower end of normal today. Encouraged pt to monitor his BP at home periodically. If remains similar today, hold off on restarting the Nebivolol. Concern would be for pt's BP to drop too low and place him at risk for falls. Beyond that, will defer to Cardiology. Does see Cardiology yearly. Localized edema Encouraged pt to get back into the habit of elevated his legs periodically throughout the day. Continue Furosemide as prescribed. Impaired mobility and activities of daily living Discussed possibility of a lift chair for pt. Nurse Advocate will look into options for the patient. Dyspnea on exertion Gradually improving after recent hospitalization. Lungs are clear at this time. Malignant neoplasm of overlapping sites of bladder (CMS/HCC) The patient is seeing a pediatric medical assistant for this condition, treatment is deferred to that specialist. Correspondence from that specialist and any available testing were reviewed during today's visit. Chronic respiratory failure with hypoxia (CMS/HCC) Lungs clear at this time. Pulse ox was 93% today. Will continue to monitor. Type 2 diabetes mellitus with diabetic chronic kidney disease (CMS/HCC) Advised pt that his HgbA1c is well controlled at 6.4 with diet alone. Will plan to recheck in 6 months. Chronic kidney disease, stage 2 (mild) Will continue to monitor with routine labs. Paroxysmal atrial fibrillation (CMS/HCC) Per pt and his , this occurred while he was on a ventilator. He is on Eliquis. Heart is RRR today. Morbid (severe) obesity due to excess calories (CMS/HCC) Encouraged portion control, decrease simple sugars and carbohydrates. Aim for gradual steady weightloss. Body mass index (BMI) 45.0-49.9, adult (CMS/HCC) See above. Follow up in about 3 months (around 12/16/2024) for Hypertension, Medication Follow Up. documented in this encounterAlvin J. Siteman Cancer [id number] History of Present illness Narrative* Salma Monday, CASTING ROOM HELPER - 09/18/2024 8:47 AM EST Phoned pt this morning to discuss lift chair/ hospital bed. I spoke with Gabrielle. She shares pt doesnot need a hospital bed, he has an attachment that helps him with the getting in and out of the bed. I explained the lift chair process and she states that is not something they can afford. She shares she has purchased a couple of cushions that she has placed in his chair and that is helping a lot.I do explain that we have a ALL AROUND GEAR MACHINE OPERATOR who helps with used ones from [employer] and asked if she would like us to go that route? She is agreeable to this idea and I let her know I will speak with her soon about what we can find out. *There is no need to send order if you haven't yet, or have any documentation for lift chair as insurance does not cover much of the cost and they are interested in pursuing a used one.* documented in this encounterAlvin J. Siteman Cancer [id number] Progress note Author Denzel Zamora [facility] Note Date/Time September 12, 2024 7 :24pm [facility] [address] [place] [address] Hospitalist Progress Note Signed Patient: Taurus Gracia MR#: [id number] : 1945 Acct:[id number] Age/Sex: 78 / M Adm Date: 5 Loc: Room: [address] [place] [address] Type: ADM INOo Attending Dr: Denzel Zamora MD Copies to: ~ Date of Service: 09/12/2024 Subjective Subjective Narrative: Admitted yesterday, no events overnight. Feels breathing improved overall, no complaints Exam Physical Exam Vital Signs: Temp Pulse Resp BP Pulse Ox O2 Del Method O2 Flow Rate 97.6 F 55 L 18 162/72 H 95 Nasal Cannula 2 09/12/24 04:00 09/12/24 04:00 09/12/24 04:00 09/12/24 04:00 09/12/24 04:00 09/12/24 08:26 09/12/24 08:26 Narrative: General: cooperative and comfortable, cushingoid appearance Orientation: alert, awake and oriented x3 Head: normal to inspection Neck: normal visual inspection Cardio: no JVD, regular rate, regular rhythm Chest palpation & inspection: normal inspection of the chest Resp Effort & Inspection: normal respiratory effort Abd: soft, non-tender, non-distended Extremities: Warm well perfused Neuro: bilateral strength intact Objective Lab Results 09/12/24 04:39 09/12/24 04:39 Microbiology Results Microbiology 09/11/24 10:22 Nasopharyngeal SARS-CoV-2, Influenza & RSV (PCR) - Final Meds Allergies and Active Meds Allergies No Known Allergies Allergy (Verified 09/11/24 11:23) Active Meds: Active Medications Generic Name Dose Route Start Last Admin Trade Name Jana PRN Reason Stop Dose Admin Apixaban 5 mg 09/11/24 21:00 09/12/24 08:53 Apixaban 5 Mg Tablet PO 09/11/25 20:59 5 mg BID DORI Administration Atorvastatin Calcium 20 mg 09/11/24 22:00 09/11/24 22:28 Atorvastatin 20 Mg Tablet PO 09/11/25 21:59 20 mg HS DORI Administration Baclofen 10 mg 09/11/24 22:00 09/12/24 08:53 Baclofen 10 Mg Tablet PO 09/11/25 21:59 10 mg TID DORI Administration Gabapentin 300 mg 09/11/24 21:00 09/12/24 08:53 Gabapentin 100 Mg Capsule PO 09/11/25 20:59 300 mg BID DORI Administration Hydralazine HCl 50 mg 09/11/24 21:00 09/12/24 08:53 Hydralazine 50 Mg Tablet PO 09/11/25 20:59 50 mg BID DORI Administration Loratadine 10 mg 09/12/24 09:00 09/12/24 08:54 Loratadine 10 Mg Tablet PO 09/12/25 08:59 10 mg DAILY DORI Administration Multivitamins 1 tab 09/12/24 09:00 09/12/24 08:53 Multivitamin 1 Tab Tablet PO 09/12/25 08:59 1 tab DAILY DORI Administration Nystatin 1 applic 09/11/24 14:00 09/12/24 08:56 Nystatin 100,000 Unit/Gram Powder 15 Gm Bottle TOPICAL 09/11/25 13:59 1 applic QID DORI Administration Prednisone 15 mg 09/12/24 09:00 09/12/24 08:53 Prednisone 5 Mg Tablet PO 09/12/25 08:59 15 mg DAILY DORI Administration Pyridostigmine [place] 60 mg 09/11/24 14:00 09/12/24 08:53 Pyridostigmine [place] 60 Mg Tablet PO 09/11/25 13:59 60 mg QID DORI Administration Sodium Chloride 0 ml 09/11/24 09:58 Sodium Chloride 0.9 % 10 Ml Syringe IV-PUSH 09/11/25 09:57 PRN PRN Flush A&P - Hospitalist Assessment/Plan (1) JAMISON on CPAP: (2) Morbid obesity with BMI of 45.0-49.9, adult: (3) Chronic back pain: (4) HTN (hypertension): (5) Myasthenia gravis: Plan Taurus Garcia is a 78-year-old male with significant past medical history of myasthenia gravis on pyridostigmine and steroids, hyperlipidemia, hypertension on multiple antihypertensive medication, right eye blindness, 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 1. sudden onset shortness of breath with generalized weakness - Largely subjective symptoms of weakness and chest heaviness, - In the emergency room, WBC 7.8, hemoglobin 13.4, creatinine 1.49 with baselineappearing around 1, BNP 72, high-sensitivity troponin I = 9. Evaluated for negative inspiratory force, found to be around -50 to -40. - low concern for impending respiratory failure, need for intubation at this time - will admit to 4P/telemetry largely for observation, neurology consultation to assess and determine extent of exacerbation - continue home regimen of prednisone 15 mg daily, and pyridostigmine -Symptomatically improved, will plan for discharge tomorrow morning Chronic conditions: HTN, hyperlipidemia, h/o unprovoked PE - continue home baclofen, hydralazine and apixiban - hold lisinopril, HCTZ-triamterene given creatinine elevation - hold nebivolol given HR ~60 Diet: Cardiac Daily Labs: CBC, BMP Lines/Drains: PIV DVT ppx: apixiban for PE Code status: Full Status: inpatient Discussed with patient and at bedside. All questions answered. In agreementwith the above plan. Denzel Zamora MD Internal Medicine Hospitalist Attending Physician Documented By: Denzel Zamora MD 09/12/24 1033 Signed By: <Electronically signed by Denzel Zamora MD> 09/12/[address] [facility] Work Phone: 1(737) 496-154501-23-2025 Progress note Author Jamel Packer [facility] Note Date/Time September 12, 2024 3 :52pm [facility] [address] [place] [address] Neurology Progress Note Signed Patient: Taurus Garcia MR#: [id number] : 1945 Acct:[id number] Age/Sex: 78 / M Adm Date: 5 Loc: 4 Room: [address] [place] [address] Type: ADM INOo Attending Dr: Denzel Zamora MD Copies to: ~ Date of Service: 09/12/2024 Exam Physical Exam Vital Signs: Temp Pulse Resp BP Pulse Ox O2 Del Method O2 Flow Rate 97.7 F 70 18 144/64 H 98 Room Air 2 09/12/24 12:00 09/12/24 12:00 09/12/24 12:00 09/12/24 12:00 09/12/24 12:00 09/12/24 12:00 09/12/24 08:26 Objective Vital Signs Vital Signs: Vital Signs - 24 hr 09/11/24 16:00 09/11/24 16:44 09/11/24 17:18 Temperature 98.0 F Pulse Rate Pulse Rate [Monitor] 66 66 Respiratory Rate 22 21 Blood Pressure Blood Pressure [Left Arm] 196/81 H 158/82 H 02 Sat by Pulse Oximetry 96 98 Oxygen Delivery Method Nasal Cannula Nasal Cannula Nasal Cannula Oxygen Flow Rate 2 2 2 09/11/24 17:22 09/11/24 20:00 09/11/24 20:00 Temperature 98.0 F Pulse Rate 64 Pulse Rate [Monitor] Respiratory Rate 18 Blood Pressure 160/70 H Blood Pressure [Left Arm] 02 Sat by Pulse Oximetry 96 Oxygen Delivery Method Nasal Cannula Nasal Cannula Nasal Cannula Oxygen Flow Rate 2 2 2 09/11/24 23:45 09/12/24 00:00 09/12/24 04:00 Temperature 97.9 F 97.6 F Pulse Rate 71 55 L Pulse Rate [Monitor] Respiratory Rate 18 18 Blood Pressure 171/72 H 162/72 H Blood Pressure [Left Arm] 02 Sat by Pulse Oximetry 96 95 Oxygen Delivery Method Nasal Cannula Nasal Cannula BiPAP Oxygen Flow Rate 2 2 09/12/24 08:00 09/12/24 08:00 09/12/24 08:26 Temperature 98.0 F Pulse Rate 70 Pulse Rate [Monitor] Respiratory Rate 18 Blood Pressure 171/93 H Blood Pressure [Left Arm] 02 Sat by Pulse Oximetry 98 Oxygen Delivery Method Room Air Room Air Nasal Cannula Oxygen Flow Rate 2 09/12/24 12:00 Temperature 97.7 F Pulse Rate 70 Pulse Rate [Monitor] Respiratory Rate 18 Blood Pressure 144/64 H Blood Pressure [Left Arm] 02 Sat by Pulse Oximetry 98 Oxygen Delivery Method Room Air Oxygen Flow Rate Labs 09/12/24 04:39 09/12/24 04:39 Lab Results: 09/11/24 17:33: ESR 16 Therapy Recommendations Therapy Recommendations: ST Recommendations ST Recommended Services at Speech Therapy,13/03 Supervision Discharge Assessment/Plan (1) Myasthenia gravis: Plan CONSULT REASON: Myasthenia gravis INTERIM: Taurus says that he is feeling better today and is breathing much better. He had his first bowel movement in a few days. He does say that he felt cold overnight but does not attest to any symptoms of illness like fever, cough, shortness of breath, sputum production, runny nose. He had some hallucinations overnight however they were always in close relation to him falling asleep. He says he saw 2 men enter his room at different points during the night. He had some lacrimation in the ER last night but otherwise denies pyridostigmine side effects such as diarrhea or vomiting drooling or nausea. He otherwise has no new focal neurological deficits weakness changes in vision changes in hearing incontinence pain or other concerns. EXAMINATION: In no distress. No deformities or trauma. Limbs are warm. Some edematous changes to distal lower extremities. Normal work of breathing. Visualized skinis generally intact and without concerning lesions. Affect normal. Patient is alert. Attention normal. Speech is fluent and nondysarthric. He can complete full sentences without taking a breath. Pupils are equal and constricted. Right visual acuity is little more than finger counting. Left visual acuity is okay. Ocular motility is full. No nystagmus. Facial sensation is normal. Hearing is normal. Facial strength is normal aside from some intermittently noticed right upper eyelid ptosis, improved today. Tongue is midline. Muscle bulk and tone seem normal. Muscle strength graded as normal in the upper extremities. Weak throughout all four extremities, however seems improved from yesterday. No appreciable tremors. No limb ataxia. DATA REVIEW: -Afebrile, bradycardic at times, good O2 saturations -WBC elevated to 10.7 and neutrophils at 8.9. ESR was 16. CMP normal. CRP wasborderline elevated at 0.6. BNP 72. -CT lumbar spine July 29, 2024 shows diffuse moderate degenerative disease involving the lumbar spine with scoliosis -Head CT July 28, 2024 nonacute -CTA head and neck July 09, 2024 shows atherosclerotic plaque without critical stenosis or vascular occlusive disease -Chest x-ray September 11, 2024 no acute process ASSESSMENT: 78-year-old man with myasthenia gravis here feeling generally weak and mildly dyspneic at times. My suspicion for a myasthenic exacerbation continues to be low. I do not think he is in myasthenic crisis. Continues to exhibit adequate respiratory markers. It is reasonable to observe him and make sure his respiratory parameters stay strong and ensure there is no other medical condition contributing, he did have some chills overnight with a slightly elevated white count and some hypnagogic hallucinations however this may all be secondary to his steroid use. At baseline, because of deconditioning and lumbarspondylosis, he is ambulating with a walker. No issues with his vision today. PLAN: 1. Continue his prednisone 15 mg daily. This is his home dose. 2. Continue his pyridostigmine 60 mg 4 times daily. This is his home dose. 3. Respiratory parameters (negative inspiratory force and vital capacity) twicedaily while he is here 4. I do not see any current indication for IVIG 5. No other inpatient recommendations from a neurology standpoint; outpatient follow-up with his neurologist Dr. Saunders Attestation Statement I endorse the portions of this note created by Dg Henning. I also saw and examined the patient. Documented By: Jamel Packer DO 09/12/24 1511 Signed By: <Electronically signed by Jamel Packer DO> 09/12/24 7512 [facility] Work Phone: 1(509) 566-376501-22-2025 History and physical note Author Denzel Zamora [facility] Note Date/Time September 11, 2024 4 :18pm [facility] [address] [place] [address] Hospitalist H&P Signed Patient: Taurus Garcia MR#: [id number] : 1945 Acct:[id number] Age/Sex: 78 / M Adm Date: 5 Loc: 4 Room: [address] [place] [address] Type: ADM IN Attending Dr: Denzel Zamora MD Copies to: MD Denzel Gonsalves II, MD~ HPI DATE OF EXAMINATION: 09/11/24 CHIEF COMPLAINT: weakness HISTORY OF PRESENT ILLNESS: Taurus Garcia is a 78-year-old male with significant past medical history of myasthenia gravis on pyridostigmine and steroids, hyperlipidemia, hypertension on multiple antihypertensive medication, right eye blindness, 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 On assessment at bedside in the emergency room, patient resting in bed, comfortable and conversant, at bedside, states that he was feeling well yesterday, no fevers, no chills, nausea, vomiting, no chest pain and developed sudden onset chest heaviness this morning concern for myasthenic crisis based onprior symptoms. States compliance with pyridostigmine and prednisone. In the emergency room, WBC 7.8, hemoglobin 13.4, creatinine 1.49 with baseline appearing around 1, BNP 72, high-sensitivity troponin I = 9. Evaluated for negative inspiratory force, found to be around -50 to -40. Review of Systems Review of Systems Review of systems: Review of Systems Constitutional: No fatigue, diaphoresis, AMS Ears, Nose, Mouth, and Throat: no dysphagia Cardiovascular: no chest pain Respiratory: + shortness of breath GI: no abdominal pain, tenderness, distension : no burning with urination Musculoskeletal: no myalgias or arthralgias Neurologic: no loss of motor function [facility] Medical History Chronic back pain Chronic anticoagulation Prostate hypertrophy Bladder cancer chemo injected into bladder several times Pulmonary emboli HTN (hypertension) Acute exacerbation of myasthenia gravis Myasthenia gravis Surgical History History of appendectomy History of cystoscopy Family History Other Cancer Hypertension Social History Smoking Status: Never smoker Substance Use Type: None Meds Medications and Allergies Allergies No Known Allergies Allergy (Verified 09/11/24 11:23) Home Medications loratadine 10 mg tablet (Allergy Relief (loratadine)) 10 mg PO DAILY 12/27/17 [History Confirmed 09/11/24] szwjpthr-pux-qsztn acid 0.4 mg-lycopene 300 mcg-lutein 250 mcg tablet (Adults 50Plus) 1 tab PO DAILY 12/27/17 [History Confirmed 09/11/24] omega-3 fatty acids-fish oil 360 mg-1,200 mg capsule (Fish Oil) 1 cap PO BID 12/27/17 [History Confirmed 09/11/24] simvastatin 40 mg tablet 40 mg PO HS 12/27/17 [History Confirmed 09/11/24] nebivolol 10 mg tablet 10 mg PO DAILY 05/10/23 [History Confirmed 09/11/24] apixaban 5 mg tablet (Eliquis) 5 mg PO Q12H #0 tabs 06/09/23 [Rx Confirmed 09/11/24] pyridostigmine bromide 60 mg tablet 1 tab PO QID 30 days #120 tabs 06/09/23 [Rx Confirmed 09/11/24] gabapentin 300 mg capsule 300 mg PO BID 06/19/24 [History Confirmed 09/11/24] furosemide 20 mg tablet 20 mg PO DAILY.8A #0 tabs 07/03/24 [Rx Confirmed 09/11/24] prednisone 5 mg tablet 15 mg (3 x 5 mg) PO DAILY 30 days #90 tabs 07/03/24 [Rx Confirmed 09/11/24] baclofen 10 mg tablet 10 mg PO TID 09/11/24 [History Confirmed 09/11/24] hydralazine 50 mg tablet 50 mg PO BID 09/11/24 [History Confirmed 09/11/24] lisinopril 20 mg tablet 20 mg PO DAILY 09/11/24 [History Confirmed 09/11/24] potassium chloride 10 mEq tablet,extended release(part/cryst) 10 meq PO BID 09/11/24 [History Confirmed 09/11/24] triamterene 37.5 mg-hydrochlorothiazide 25 mg tablet 1 tab PO DAILY 09/11/24 [History Confirmed 09/11/24] Exam Physical Exam Vital Signs: Temp Pulse Resp BP Pulse Ox O2 Del Method 98.2 F 59 L 24 150/68 H 95 Room Air 09/11/24 09:52 09/11/24 10:42 09/11/24 10:42 09/11/24 10:42 09/11/24 10:42 09/11/24 10:42 Narrative: General: cooperative and comfortable, cushingoid appearance Orientation: alert, awake and oriented x3 Head: normal to inspection Neck: normal visual inspection Cardio: no JVD, regular rate, regular rhythm Chest palpation & inspection: normal inspection of the chest Resp Effort & Inspection: normal respiratory effort Abd: soft, non-tender, non-distended Extremities: Warm well perfused Neuro: bilateral strength intact Results - Hospitalist H&P Lab Results Labs: Laboratory Last Values Corrected WBC 7.8 X10E3/uL (4.1-10.5) 09/11/24 10:40 Uncorrected WBC Count 7.8 x10E3/uL (4.1-10.5) 09/11/24 10:40 RBC 4.34 x10E6/uL (3.90-5.60) 09/11/24 10:40 Hgb 13.4 g/dL (13.0-17.0) 09/11/24 10:40 Hct 40.0 % (38.8-50.0) 09/11/24 10:40 MCV 92.2 fl (83.5-101) 09/11/24 10:40 MCH 30.8 pg (27.5-35.2) 09/11/24 10:40 MCHC 33.4 g/dL (32.5-35.6) 09/11/24 10:40 RDW 17.1 % (12.0-14.8) H 09/11/24 10:40 Plt Count 233 x10E3/uL (150-450) 09/11/24 10:40 MPV 9.2 fl (6.6-10.1) 09/11/24 10:40 Assessment & Plan Assessment/Plan (1) JAMISON on CPAP: (2) Morbid obesity with BMI of 45.0-49.9, adult: (3) Chronic back pain: (4) HTN (hypertension): (5) Myasthenia gravis: Plan Taurus Garcia is a 78-year-old male with significant past medical history of myasthenia gravis on pyridostigmine and steroids, hyperlipidemia, hypertension on multiple antihypertensive medication, right eye blindness, 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 1. sudden onset shortness of breath with generalized weakness - Largely subjective symptoms of weakness and chest heaviness, - In the emergency room, WBC 7.8, hemoglobin 13.4, creatinine 1.49 with baselineappearing around 1, BNP 72, high-sensitivity troponin I = 9. Evaluated for negative inspiratory force, found to be around -50 to -40. - low concern for impending respiratory failure, need for intubation at this time - will admit to 4P/telemetry largely for observation, neurology consultation to assess and determine extent of exacerbation - continue home regimen of prednisone 15 mg daily, and pyridostigmine - if lack of symptomatic improvement will consult palliative care to reassess goals of care as was recently admitted to facility Chronic conditions: HTN, hyperlipidemia, h/o unprovoked PE - continue home baclofen, hydralazine and apixiban - hold lisinopril, HCTZ-triamterene given creatinine elevation - hold nebivolol given HR ~60 Diet: Cardiac Daily Labs: CBC, BMP Lines/Drains: PIV DVT ppx: apixiban for PE Code status: Full Status: inpatient Discussed with patient and at bedside. All questions answered. In agreementwith the above plan. Denzel Zamora MD Internal Medicine Hospitalist Attending Physician IP vs OBS Justification Based on differential dx, clinical care plan, and risk of adverse events, if untreated, in my clinical judgement this patient requires an acute care setting as: INPATIENT because of an expectation of an over 2 midnight stay. Estimated length of stay (# of days): 3 Documented By: Denzel Zamora MD 09/11/24 1128 Signed By: <Electronically signed by Denzel Zamora MD> 09/11/[address] [facility] Work Phone: 1(776) 408-158401-22-2025 Consult note Author Jamel Packer [facility] Note Date/Time September 11, 2024 4 :09pm [facility] [address] [place] [address] Neurology Consult Note Signed Patient: Taurus Garcia MR#: [id number] : 1945 Acct:[id number] Age/Sex: 78 / M Adm Date: 5 Loc: Room: [address] [place] [address] Type: ADM IN Attending Dr: Denzel Zamora MD Copies to: DO Komal Bajwa II, MD Rahul Prasad, MD~ HPI Consult Date: 09/11/24 Edge Beader: Jamel Packer DO [facility] Medical History Chronic back pain Chronic anticoagulation Prostate hypertrophy Bladder cancer chemo injected into bladder several times Pulmonary emboli HTN (hypertension) Acute exacerbation of myasthenia gravis Myasthenia gravis Surgical History History of appendectomy History of cystoscopy Family History Other Cancer Hypertension Social History Smoking Status: Never smoker Substance Use Type: None Meds Medications and Allergies Allergies No Known Allergies Allergy (Verified 09/11/24 11:23) Home Medications loratadine 10 mg tablet (Allergy Relief (loratadine)) 10 mg PO DAILY 12/27/17 [History Confirmed 09/11/24] cmdxfhhm-otx-rqjfm acid 0.4 mg-lycopene 300 mcg-lutein 250 mcg tablet (Adults 50Plus) 1 tab PO DAILY 12/27/17 [History Confirmed 09/11/24] omega-3 fatty acids-fish oil 360 mg-1,200 mg capsule (Fish Oil) 1 cap PO BID 12/27/17 [History Confirmed 09/11/24] simvastatin 40 mg tablet 40 mg PO HS 12/27/17 [History Confirmed 09/11/24] nebivolol 10 mg tablet 10 mg PO DAILY 05/10/23 [History Confirmed 09/11/24] apixaban 5 mg tablet (Eliquis) 5 mg PO Q12H #0 tabs 06/09/23 [Rx Confirmed 09/11/24] pyridostigmine bromide 60 mg tablet 1 tab PO QID 30 days #120 tabs 06/09/23 [Rx Confirmed 09/11/24] gabapentin 300 mg capsule 300 mg PO BID 06/19/24 [History Confirmed 09/11/24] furosemide 20 mg tablet 20 mg PO DAILY.8A #0 tabs 07/03/24 [Rx Confirmed 09/11/24] prednisone 5 mg tablet 15 mg (3 x 5 mg) PO DAILY 30 days #90 tabs 07/03/24 [Rx Confirmed 09/11/24] baclofen 10 mg tablet 10 mg PO TID 09/11/24 [History Confirmed 09/11/24] hydralazine 50 mg tablet 50 mg PO BID 09/11/24 [History Confirmed 09/11/24] lisinopril 20 mg tablet 20 mg PO DAILY 09/11/24 [History Confirmed 09/11/24] potassium chloride 10 mEq tablet,extended release(part/cryst) 10 meq PO BID 09/11/24 [History Confirmed 09/11/24] triamterene 37.5 mg-hydrochlorothiazide 25 mg tablet 1 tab PO DAILY 09/11/24 [History Confirmed 09/11/24] Exam Physical Exam Vital Signs: Temp Pulse Resp BP Pulse Ox O2 Del Method O2 Flow Rate 98.2 F 60 26 H 176/73 H 95 Room Air 2 09/11/24 09:52 09/11/24 14:30 09/11/24 14:30 09/11/24 14:30 09/11/24 14:30 09/11/24 14:30 09/11/24 13:30 Results - Neuro Laboratory Findings 09/11/24 10:40 09/11/24 11:51 Diagnostic Findings Imaging/Impressions: ITS Impressions Chest X-Ray 09/11/24 09:57 IMPRESSION: No acute process. Impression dictated by: Aaron Mock M.D.09/11/2024 10:20 AM Dictation Location: RADIO--16 Therapy Recommendations Therapy Recommendations: ST Recommendations ST Recommended Services at Speech Therapy,13/03 Supervision Discharge Assessment/Plan (1) Myasthenia gravis: Plan CONSULT REASON: Myasthenia gravis HPI: 78-year-old man with history of myasthenia gravis. I had seen him here back in June 2024 and he had been feeling more weakness at that time but it was not felt that he was in any myasthenic exacerbation or crisis. I had also seen him back in May 2024 when he had weakness and dyspnea with exertion with concernfor a myasthenic exacerbation but not crisis. He did have history of myastheniccrisis in April 2023 requiring a 5-day course of IVIG and intubation with mechanical ventilation. He just started feeling weak seemingly overnight. He was able to get up and usehis walker to go to the bathroom overnight. But has since just felt generalizedweakness. Slight dyspnea. He is on prednisone 15 mg daily. He is on pyridostigmine 60 mg 4 times daily. He is not having any issues with swallowingor speech. He is not having diplopia but he can never know if he is having diplopia or disconjugate gaze because he is blind in the right eye. His right upper eyelid tends to sometimes sag and that is been a chronic issue. He and his called his left upper eyelid his myasthenia eyelid and try to use that as a gauge for if he is having fatigable weakness. It looks like he was given prednisone 60 mg once in the emergency department. Negative inspiratory force was 42 and 55. He also mentioned having his vision fade out a bit at times. He had similar complaints when seen in June 2024. He was worked up to rule out temporal arteritis. ESR was 53 and CRP was 3.1. His says he is taking hydrocodone and oxycodone at home for his extreme back pain. EXAMINATION: A little tachypneic at times. Pulse oximetry has been okay, he does have nasal cannula in place. In no distress. No deformities or trauma. [...] is normal aside from some intermittently noticed right upper eyelid ptosis. Tongue is midline. Muscle bulk and tone seem normal. Muscle strength graded as normal in the upperextremities. There may be some mild fatigable weakness in the right upper extremity, it starts to drift but only after about 30 seconds. Diffusely weak inbilateral lower extremities, especially proximally, but overall probably +4/5 throughout the legs. He has some tremors visible in the upper trunk. He also has some head tremor. Reflexes trace throughout. Light touch is normal. No limb ataxia. DATA REVIEW: -CT lumbar spine July 29, 2024 shows diffuse moderate degenerative disease involving the lumbar spine with scoliosis -Head CT July 28, 2024 nonacute -CTA head and neck July 09, 2024 shows atherosclerotic plaque without critical stenosis or vascular occlusive disease ASSESSMENT: 78-year-old man with myasthenia gravis here feeling generally weak and mildly dyspneic at times. My suspicion for a myasthenic exacerbation is fairly low. Raoul not think he is in myasthenic crisis. Strong negative inspiratory force in the emergency department. It is reasonable to observe him and make sure his respiratory parameters stay strong and ensure there is no other medical condition contributing. At baseline, because of deconditioning and lumbar spondylosis, he is ambulating with a walker. He again mentioned that his vision can sometimes fade out. Temporal arteritis was previously considered but felt unlikely, though his inflammatory markers were borderline. I am checking those again. PLAN: 1. Continue his prednisone 15 mg daily. 2. Continue his pyridostigmine 60 mg 4 times daily. This is probably the upperlimit of what he will tolerate, as he has dealt with lacrimation and rhinorrhea before that were thought to be related to this medication, and he is intermittently bradycardic in the 50s which is also probably related to the cholinergic properties of this medication. 3. Respiratory parameters (negative inspiratory force and vital capacity) twicedaily, and if they start to look at all concerning we will do them much more frequently. 4. I do not see any current indication for IVIG 5. Checking ESR and CRP 6. Further recommendations to follow Documented By: Jamel Packer DO 09/11/24 5980 Signed By: <Electronically signed by Jamel Packer DO> 09/11/[address] [facility] Work Phone: 1(519) 836-468401-22-2025 History of Present illness Narrative* Leela Bocanegra NP - 09/11/2024 10:31 AM EST Pt needs refill documented in this encounterAlvin J. Siteman Cancer [id number] Consult note Author Jamel Packer [facility] Note Date/Time September 11, 2024 4 :09pm [facility] [address] [place] [address] Neurology Consult Note Signed Patient: Taurus Garcia MR#: [id number] : 1945 Acct:[id number] Age/Sex: 78 / M Adm Date: 5 Loc: Room: [address] [place] [address] Type: ADM IN Attending Dr: Denzel Zamora MD Copies to: DO Komal Bajwa II, MD Rahul Prasad, MD~ HPI Consult Date: 09/11/24 Edge Beader: Jamel Packer DO [facility] Medical History Chronic back pain Chronic anticoagulation Prostate hypertrophy Bladder cancer chemo injected into bladder several times Pulmonary emboli HTN (hypertension) Acute exacerbation of myasthenia gravis Myasthenia gravis Surgical History History of appendectomy History of cystoscopy Family History Other Cancer Hypertension Social History Smoking Status: Never smoker Substance Use Type: None Meds Medications and Allergies Allergies No Known Allergies Allergy (Verified 09/11/24 11:23) Home Medications loratadine 10 mg tablet (Allergy Relief (loratadine)) 10 mg PO DAILY 12/27/17 [History Confirmed 09/11/24] ladouxda-ouz-gfomm acid 0.4 mg-lycopene 300 mcg-lutein 250 mcg tablet (Adults 50Plus) 1 tab PO DAILY 12/27/17 [History Confirmed 09/11/24] omega-3 fatty acids-fish oil 360 mg-1,200 mg capsule (Fish Oil) 1 cap PO BID 12/27/17 [History Confirmed 09/11/24] simvastatin 40 mg tablet 40 mg PO HS 12/27/17 [History Confirmed 09/11/24] nebivolol 10 mg tablet 10 mg PO DAILY 05/10/23 [History Confirmed 09/11/24] apixaban 5 mg tablet (Eliquis) 5 mg PO Q12H #0 tabs 06/09/23 [Rx Confirmed 09/11/24] pyridostigmine bromide 60 mg tablet 1 tab PO QID 30 days #120 tabs 06/09/23 [Rx Confirmed 09/11/24] gabapentin 300 mg capsule 300 mg PO BID 06/19/24 [History Confirmed 09/11/24] furosemide 20 mg tablet 20 mg PO DAILY.8A #0 tabs 07/03/24 [Rx Confirmed 09/11/24] prednisone 5 mg tablet 15 mg (3 x 5 mg) PO DAILY 30 days #90 tabs 07/03/24 [Rx Confirmed 09/11/24] baclofen 10 mg tablet 10 mg PO TID 09/11/24 [History Confirmed 09/11/24] hydralazine 50 mg tablet 50 mg PO BID 09/11/24 [History Confirmed 09/11/24] lisinopril 20 mg tablet 20 mg PO DAILY 09/11/24 [History Confirmed 09/11/24] potassium chloride 10 mEq tablet,extended release(part/cryst) 10 meq PO BID 09/11/24 [History Confirmed 09/11/24] triamterene 37.5 mg-hydrochlorothiazide 25 mg tablet 1 tab PO DAILY 09/11/24 [History Confirmed 09/11/24] Exam Physical Exam Vital Signs: Temp Pulse Resp BP Pulse Ox O2 Del Method O2 Flow Rate 98.2 F 60 26 H 176/73 H 95 Room Air 2 09/11/24 09:52 09/11/24 14:30 09/11/24 14:30 09/11/24 14:30 09/11/24 14:30 09/11/24 14:30 09/11/24 13:30 Results - Neuro Laboratory Findings 09/11/24 10:40 09/11/24 11:51 Diagnostic Findings Imaging/Impressions: ITS Impressions Chest X-Ray 09/11/24 09:57 IMPRESSION: No acute process. Impression dictated by: Aaron Mock M.D.09/11/2024 10:20 AM Dictation Location: [place] [address] Therapy Recommendations Therapy Recommendations: ST Recommendations ST Recommended Services at Speech Therapy,13/03 Supervision Discharge Assessment/Plan (1) Myasthenia gravis: Plan CONSULT REASON: Myasthenia gravis HPI: 78-year-old man with history of myasthenia gravis. I had seen him here back in June 2024 and he had been feeling more weakness at that time but it was not felt that he was in any myasthenic exacerbation or crisis. I had also seen him back in May 2024 when he had weakness and dyspnea with exertion with concernfor a myasthenic exacerbation but not crisis. He did have history of myastheniccrisis in April 2023 requiring a 5-day course of IVIG and intubation with mechanical ventilation. He just started feeling weak seemingly overnight. He was able to get up and usehis walker to go to the bathroom overnight. But has since just felt generalizedweakness. Slight dyspnea. He is on prednisone 15 mg daily. He is on pyridostigmine 60 mg 4 times daily. He is not having any issues with swallowingor speech. He is not having diplopia but he can never know if he is having diplopia or disconjugate gaze because he is blind in the right eye. His right upper eyelid tends to sometimes sag and that is been a chronic issue. He and his called his left upper eyelid his myasthenia eyelid and try to use that as a gauge for if he is having fatigable weakness. It looks like he was given prednisone 60 mg once in the emergency department. Negative inspiratory force was 42 and 55. He also mentioned having his vision fade out a bit at times. He had similar complaints when seen in June 2024. He was worked up to rule out temporal arteritis. ESR was 53 and CRP was 3.1. His says he is taking hydrocodone and oxycodone at home for his extreme back pain. EXAMINATION: A little tachypneic at times. Pulse oximetry has been okay, he does have nasal cannula in place. In no distress. No deformities or trauma. [...] is normal aside from some intermittently noticed right upper eyelid ptosis. Tongue is midline. Muscle bulk and tone seem normal. Muscle strength graded as normal in the upperextremities. There may be some mild fatigable weakness in the right upper extremity, it starts to drift but only after about 30 seconds. Diffusely weak inbilateral lower extremities, especially proximally, but overall probably +4/5 throughout the legs. He has some tremors visible in the upper trunk. He also has some head tremor. Reflexes trace throughout. Light touch is normal. No limb ataxia. DATA REVIEW: -CT lumbar spine July 29, 2024 shows diffuse moderate degenerative disease involving the lumbar spine with scoliosis -Head CT July 28, 2024 nonacute -CTA head and neck July 09, 2024 shows atherosclerotic plaque without critical stenosis or vascular occlusive disease ASSESSMENT: 78-year-old man with myasthenia gravis here feeling generally weak and mildly dyspneic at times. My suspicion for a myasthenic exacerbation is fairly low. Raoul not think he is in myasthenic crisis. Strong negative inspiratory force in the emergency department. It is reasonable to observe him and make sure his respiratory parameters stay strong and ensure there is no other medical condition contributing. At baseline, because of deconditioning and lumbar spondylosis, he is ambulating with a walker. He again mentioned that his vision can sometimes fade out. Temporal arteritis was previously considered but felt unlikely, though his inflammatory markers were borderline. I am checking those again. PLAN: 1. Continue his prednisone 15 mg daily. 2. Continue his pyridostigmine 60 mg 4 times daily. This is probably the upperlimit of what he will tolerate, as he has dealt with lacrimation and rhinorrhea before that were thought to be related to this medication, and he is intermittently bradycardic in the 50s which is also probably related to the cholinergic properties of this medication. 3. Respiratory parameters (negative inspiratory force and vital capacity) twicedaily, and if they start to look at all concerning we will do them much more frequently. 4. I do not see any current indication for IVIG 5. Checking ESR and CRP 6. Further recommendations to follow Documented By: Jamel Packer DO 09/11/24 5222 Signed By: <Electronically signed by Jamel Packer DO> 09/11/[address] [facility] Work Phone: 1([phone]) 375-679312-04-2024 History of Present illness Narrative* Leela Bocanegra, ANAMARIA - 07/24/2024 8:30 AM EST Images from the original note [...] onset. The pain is present in the lumbarspine, sacro-iliac and gluteal. The quality of the [...] history of steroid use, obesity and lack ofexercise. Treatments tried: Used [place] in the past for pain management. URI This is a new problem. The current episode started 1 to 4 weeks ago. The problem has been graduallyworsening. Associated symptoms include coughing, rhinorrhea, a sore [...] by mouth in the morning and 1 capsule(300 mg) before bedtime. 180 capsule 3 hydrALAZINE (Apresoline) 50 MG tablet TAKE 1 TABLET BY MOUTH TWICE DAILY WITH FOOD 180 tablet 3 HYDROcodone-acetaminophen ([place]) 5-325 MG tablet Take 1 tablet by [...] mouth Daily 100 tablet 3 nystatin (Mycostatin) 320620 UNIT/GM powder APPLY TO THE AFFECTED AREA(S) [...] of echocardiogram 12/15/2018 EF 60-65%, LVH Hypertension (CMS/[facility]) Impaired glucose tolerance test Oral Lumbosacral spondylosis without myelopathy LVH (left ventricular hypertrophy) 12/15/2018 ECHO EF 60-65% Macular edema 2009 /pucker Muscle cramp Myasthenia gravis (CMS/HCC) 12/27/2017 / dyspnea Myasthenic crisis (CMS/HCC) 05/10/2023 Obesity Obstructive sleep apnea (adult) (pediatric) Pulmonary emboli (CMS/HCC) 11/17/2023 Pulmonary embolism (CMS/HCC) 11/2018 Pure hypercholesterolemia ([facility]) Shortness of breath Superficial thrombophlebitis 12/16/2018 Rt Thigh Tremor Troponin I above reference range 11/17/2023 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 Patient is to [...] No follow-ups on file. documented in this encounterAlvin J. Siteman Cancer [id number] Evaluation note* Diagnosis Localized edema- Primary Edema Stage 3a chronic kidney disease (HCC) ([facility]/HCC) Lumbosacral spondylosis without myelopathy Acute non-recurrent sinusitis of other sinus documented in this encounter [facility] Cancer [id number] Radiology Diagnostic study [facility] [address] [place] [address] CT Scan Report Signed Patient: Taurus Garcia MR#: [id number] : 1945 Acct:[id number] Age/Sex: 78 / M ADM Date: 4 Loc: ER Room: Type: [facility] ER Attending Dr: Copies to: Juli Thomas APRN~ Ordering Provider: Juli Thomas APRN Date of Service: 07/09/24 CT/CT angio head: vision changes ([id number]) CT/CT angio neck: vision changes CTA OF THE HEAD AND NECK WITH CONTRAST COMPARISON: None CLINICAL DATA: Blurred vision, increased weakness and pain all over. Spiral images were obtained through the head and neck following 90 mL Isovue- 370. Sagittal and coronal MIP as well as 3-D volume rendered reconstructions ofthe carotid arteries and eklutna of [place] were reviewed. Stenosis is evaluated [...] Aide Moe M.D.07/09/2024 4:50 PM Dictation Location: RADIO-PC-02 Transcribed By: KRISSY 07/09/24 1650 Dictated By: Aide Moe MD 07/09/24 1636 Signed By: 07/09/24 1652 [facility] Work Phone: 1([phone]) 171-329711-19-2024 Radiology Diagnostic study [facility] [address] [place] [address] CT Scan Report Signed Patient: Taurus Garcia MR#: [id number] : 1945 Acct:[id number] Age/Sex: 78 / M ADM Date: 4 Loc: ER Room: Type: [facility] ER Attending Dr: Copies to: Juli Thomas [...] Aide Moe M.D.07/09/2024 4:30 PM Dictation Location: RADIO-PC-02 Transcribed By: KRISSY 07/09/24 1630 Dictated By: Aide Moe MD 07/09/24 1624 Signed By: 07/09/24 3786 [facility] Work Phone: 1(211) 589-820011-14-2024 Discharge summary Author Silvestre Grover [facility] Note Date/Time July 04, 2024 7:50am [facility] [address] [place] [address] Discharge Summary Signed Patient: Taurus Garcia MR#: [id number] : 1945 Acct:[id number] Age/Sex: 78 / M Adm Date: 4 Loc: Room: [address] [place] [address]: Silvestre Grover MD Copies to: MD Silvestre Gonsalves II, MD~ Providers Date of Discharge: 07/04/24 Discharging Provider: Silvestre Grover Primary Care Provider: Komal Schaffer Consults: 06/22/24 14:58 Consult to Adult Hospitalist [...] (if applicable): Any other additional instructions (i.e. Smith care, PICC care, PEG tube feeding directions, abdominal binders, weights, etc.). Your Home Health agency is [facility] (or enter a different Home Health agency [...] Preparation H(pe,cb) 0.25-88.44 % Suppository 1 supp AR BID PRN (Reason: hemorrhoids) Qty: 0 0RF [...] 0 0RF Follow Up: [facility] [Outside] Komal Schaffer II, MD [Primary Care Provider] - (Call [...] <Electronically signed by Silvestre Grover MD> 07/04/[address] [facility] Work Phone: 1(340) 149-590911-14-2024 [id number] Discharge Summary Signed Patient: Taurus Garcia MR#: [id number] : 1945 Acct:[id number] Age/Sex: 78 / M Adm Date: 4 Loc: Room: [address] [place] [address]: Silvestre Grover MD Copies to: MD Silvestre Gonsalves II, MD~ Providers Date of Discharge: 07/04/24 Discharging Provider: Silvestre Grover Primary Care Provider: Komal Schaffer Consults: 06/22/24 14:58 Consult to Adult Hospitalist [...] (if applicable): Any other additional instructions (i.e. Smith care, PICC care, PEG tube feeding directions, abdominal binders, weights, etc.). [facility] (or enter a different [facility] Health agency [...] Preparation H(pe,cb) 0.25-88.44 % Suppository 1 supp AR BID PRN (Reason: hemorrhoids) Qty: 0 0RF [...] 0 0RF Follow Up: [facility] [Outside] Komal Schaffer II, MD [Primary Care Provider] - (Call [...] MD 07/04/24 0745 Signed By: 07/04/24 0750 [facility]11-13-2024 Progress note Author Silvestre Grover [facility] Note Date/Time July 03, 2024 1:55pm [facility] [address] [place] [address] Physiatry(Rehab) Progress Note Signed Patient: Taurus Garcia MR#: [id number] : 1945 Acct:[id number] Age/Sex: 78 / M Adm Date: 4 Loc: Room: 5I7140-0 Type: ADM IN Attending Dr: Silvestre Grover [...] mg 06/22/24 14:58 Bisacodyl 10 Mg Supp.Rect AR 06/22/25 14:57 DAILY PRN Constipation Diclofenac Sodium 2 gm 06/27/24 14:00 07/03/24 08:37 Diclofenac Sodium 1% Gel 100 Gm Tube TOPICAL 06/27/25 13:59 2 gm TID DORI Administration Docusate Sodium 100 mg 06/22/24 14:58 Docusate 100 Mg Capsule PO 06/22/25 14:57 BID PRN Constipation Docusate Sodium 283 mg 06/22/24 14:58 Docusate Enema 283 Mg/5 Ml Enema AR 06/22/25 14:57 DAILY PRN Constipation Fish Oil 1,000 mg 06/22/24 21:00 07/03/24 08:36 [place]-3/Fish Oil 1,000 Mg Capsule PO 06/22/25 20:59 [...] Multi-Ingredient Cream 1 applic 07/02/24 09:49 Lanolin Alcohol/Mo/W.Pet/Tonica (Minerin) 454 Gm Jar TOPICAL 07/02/25 20:59 [...] 20:59 40 mg BID DORI Administration Phenyleph/Shark Oil/[place] Butter 1 supp 06/22/24 14:57 Phenylephrine/[place] Butter 6.25 Mg/2211 Mg 1 Supp AR 06/22/25 14:56 BID PRN hemorrhoids Potassium Chloride [...] 08:59 15 mg DAILY DORI Administration Pyridostigmine [place] 60 mg 06/22/24 18:00 07/03/24 08:37 Pyridostigmine [place] 60 Mg Tablet PO 06/22/25 17:59 60 [...] equipment to enhance the patient's a functional adventist Ensure adequate nutrition and hydration Sleep Discharge planning. Patient was personally seen by me, Dr. Grover, on the day of encounter, reviewed the history and the relevant portions of the chart, including current orders, allied health and commercial sales consultant notes, labs/imaging and performed garcia elements of exam and I formulated the plan of care and facilitated the medical decision making. I completed a substantive portion of this encounter, the medical decision makingportion of this note in its entirety, including Allied health note review, nursing note review, commercial sales consultant note review, discussion with nursing and case management, and more than 50% of my time was spent on counseling and coordination of care, time spent 25 minutes Documented By: Silvestre Grover MD 07/03/24 0726 Signed By: <Electronically signed by Silvestre Grover MD> 07/03/[address] [facility] Work Phone: 1(238) 784-707711-13-2024 [place] [address] Physiatry(Rehab) Progress Note Signed Patient: Taurus Garcia MR#: [id number] : 1945 Acct:[id number] Age/Sex: 78 / M Adm Date: 4 Loc: Room: [address] [place] [address] Type: ADM IN Attending Dr: Silvestre Grover [...] mg 06/22/24 14:58 Bisacodyl 10 Mg Supp.Rect AR 06/22/25 14:57 DAILY PRN Constipation Diclofenac Sodium 2 gm 06/27/24 14:00 07/03/24 08:37 Diclofenac Sodium 1% Gel 100 Gm Tube TOPICAL 06/27/25 13:59 2 gm TID DORI Administration Docusate Sodium 100 mg 06/22/24 14:58 Docusate 100 Mg Capsule PO 06/22/25 14:57 BID PRN Constipation Docusate Sodium 283 mg 06/22/24 14:58 Docusate Enema 283 Mg/5 Ml Enema AR 06/22/25 14:57 DAILY PRN Constipation Fish Oil 1,000 mg 06/22/24 21:00 07/03/24 08:36 [place]-3/Fish Oil 1,000 Mg Capsule PO 06/22/25 20:59 [...] Multi-Ingredient Cream 1 applic 07/02/24 09:49 Lanolin Alcohol/Mo/W.Pet/Tonica (Minerin) 454 Gm Jar TOPICAL 07/02/25 20:59 [...] 20:59 40 mg BID DORI Administration Phenyleph/Shark Oil/[place] Butter 1 supp 06/22/24 14:57 Phenylephrine/[place] Butter 6.25 Mg/2211 Mg 1 Supp AR 06/22/25 14:56 BID PRN hemorrhoids Potassium Chloride [...] 08:59 15 mg DAILY DORI Administration Pyridostigmine [place] 60 mg 06/22/24 18:00 07/03/24 08:37 Pyridostigmine [place] 60 Mg Tablet PO 06/22/25 17:59 60 [...] equipment to enhance the patient's a functional adventist Ensure adequate nutrition and hydration Sleep Discharge planning. Patient was personally seen by me, Dr. Grover, on the day of encounter, reviewed the history and therelevant portions of the chart, including current orders, allied health and commercial sales consultant notes, labs/imaging and performed garcia elements of exam and I formulated the plan of care and facilitated the medical decision making. I completed a substantive portion of this encounter, the medical decision makingportion of this note in its entirety, including Allied health note review, nursing note review, commercial sales consultant note review,discussion with nursing and case management, and more than 50% of my time was spent on counseling and coordination of care, time spent 25 minutes Documented By: Silvestre Grover MD 07/03/24 1354 Signed By: 07/03/24 1355 [facility]11-11-2024 Progress note Author Silvestre Grover [facility] Note Date/Time July 01, 2024 1:54pm [facility] [address] [place] [address] Physiatry(Rehab) Progress Note Signed Patient: Taurus Garcia MR#: [id number] : 1945 Acct:[id number] Age/Sex: 78 / M Adm Date: 4 Loc: 5T Room: [address] [place] [address] Type: ADM IN Attending Dr: Silvestre Grover [...] mg 06/22/24 14:58 Bisacodyl 10 Mg Supp.Rect AR 06/22/25 14:57 DAILY PRN Constipation Diclofenac Sodium 2 gm 06/27/24 14:00 07/01/24 08:00 Diclofenac Sodium 1% Gel 100 Gm Tube TOPICAL 06/27/25 13:59 2 gm TID DORI Administration Docusate Sodium 100 mg 06/22/24 14:58 Docusate 100 Mg Capsule PO 06/22/25 14:57 BID PRN Constipation Docusate Sodium 283 mg 06/22/24 14:58 Docusate Enema 283 Mg/5 Ml Enema AR 06/22/25 14:57 DAILY PRN Constipation Fish Oil 1,000 mg 06/22/24 21:00 07/01/24 07:59 [place]-3/Fish Oil 1,000 Mg Capsule PO 06/22/25 20:59 [...] 20:59 40 mg BID DORI Administration Phenyleph/Shark Oil/[place] Butter 1 supp 06/22/24 14:57 Phenylephrine/[place] Butter 6.25 Mg/2211 Mg 1 Supp AR 06/22/25 14:56 BID PRN hemorrhoids Potassium Chloride [...] 08:59 15 mg DAILY DORI Administration Pyridostigmine [place] 60 mg 06/22/24 18:00 07/01/24 07:59 Pyridostigmine [place] 60 Mg Tablet PO 06/22/25 17:59 60 [...] equipment to enhance the patient's a functional adventist Ensure adequate nutrition and hydration Sleep Discharge planning. Patient was personally seen by me, Dr. Grover, on the day of encounter, reviewed the history and the relevant portions of the chart, including current orders, allied health and commercial sales consultant notes, labs/imaging and performed garcia elements of exam and I formulated the plan of care and facilitated the medical decision making. I completed a substantive portion of this encounter, the medical decision makingportion of this note in its entirety, including Allied health note review, nursing note review, commercial sales consultant note review, discussion with nursing and case management, and more than 50% of my time was spent on counseling and coordination of care, time spent 25 minutes Documented By: Silvestre Grover MD 07/01/24 1359 Signed By: <Electronically signed by Silvestre Grover MD> 07/01/24 [facility] Work Phone: 1([phone]) 754-997311-11-2024 [place] [address] Physiatry(Rehab) Progress Note Signed Patient: Taurus Garcia MR#: [id number] : 1945 Acct:[id number] Age/Sex: 78 / M Adm Date: 4 Loc: 5T Room: 4L5634-8 Type: ADM IN Attending Dr: Silvestre Grover [...] mg 06/22/24 14:58 Bisacodyl 10 Mg Supp.Rect AR 06/22/25 14:57 DAILY PRN Constipation Diclofenac Sodium 2 gm 06/27/24 14:00 07/01/24 08:00 Diclofenac Sodium 1% Gel 100 Gm Tube TOPICAL 06/27/25 13:59 2 gm TID DORI Administration Docusate Sodium 100 mg 06/22/24 14:58 Docusate 100 Mg Capsule PO 06/22/25 14:57 BID PRN Constipation Docusate Sodium 283 mg 06/22/24 14:58 Docusate Enema 283 Mg/5 Ml Enema AR 06/22/25 14:57 DAILY PRN Constipation Fish Oil 1,000 mg 06/22/24 21:00 07/01/24 07:59 [place]-3/Fish Oil 1,000 Mg Capsule PO 06/22/25 20:59 [...] 20:59 40 mg BID DORI Administration Phenyleph/Shark Oil/[place] Butter 1 supp 06/22/24 14:57 Phenylephrine/[place] Butter 6.25 Mg/2211 Mg 1 Supp AR 06/22/25 14:56 BID PRN hemorrhoids Potassium Chloride [...] 08:59 15 mg DAILY DORI Administration Pyridostigmine [place] 60 mg 06/22/24 18:00 07/01/24 07:59 Pyridostigmine [place] 60 Mg Tablet PO 06/22/25 17:59 60 [...] equipment to enhance the patient's a functional adventist Ensure adequate nutrition and hydration Sleep Discharge planning. Patient was personally seen by me, Dr. Grover, on the day of encounter, reviewed the history and therelevant portions of the chart, including current orders, allied health and commercial sales consultant notes, labs/imaging and performed garcia elements of exam and I formulated the plan of care and facilitated the medical decision making. I completed a substantive portion of this encounter, the medical decision makingportion of this note in its entirety, including Allied health note review, nursing note review, commercial sales consultant note review,discussion with nursing and case management, and more than 50% of my time was spent on counseling and coordination of care, time spent 25 minutes Documented By: Silvestre Grover MD 07/01/24 1353 Signed By: 07/01/[address] [place], [place] 7167111-10-2024 Progress note Author Fidel Bennett [facility] Note Date/Time June 30, 2024 9:22pm [facility] [address] [place] [address] Physiatry(Rehab) Progress Note Signed Patient: Taurus Garcia MR#: [id number] : 1945 Acct:[id number] Age/Sex: 78 / M Adm Date: 4 Loc: Room: [address] [place] [address] Type: ADM IN Attending Dr: Silvestre Grover [...] mg 06/22/24 14:58 Bisacodyl 10 Mg Supp.Rect AR 06/22/25 14:57 DAILY PRN Constipation Diclofenac Sodium 2 gm 06/27/24 14:00 06/30/24 14:34 Diclofenac Sodium 1% Gel 100 Gm Tube TOPICAL 06/27/25 13:59 Not Given TID DORI Docusate Sodium 100 mg 06/22/24 14:58 Docusate 100 Mg Capsule PO 06/22/25 14:57 BID PRN Constipation Docusate Sodium 283 mg 06/22/24 14:58 Docusate Enema 283 Mg/5 Ml Enema AR 06/22/25 14:57 DAILY PRN Constipation Fish Oil 1,000 mg 06/22/24 21:00 06/30/24 08:50 [place]-3/Fish Oil 1,000 Mg Capsule PO 06/22/25 20:59 [...] 20:59 40 mg BID DORI Administration Phenyleph/Shark Oil/[place] Butter 1 supp 06/22/24 14:57 Phenylephrine/[place] Butter 6.25 Mg/2211 Mg 1 Supp AR 06/22/25 14:56 BID PRN hemorrhoids Potassium Chloride [...] 08:59 15 mg DAILY DORI Administration Pyridostigmine [place] 60 mg 06/22/24 18:00 06/30/24 17:46 Pyridostigmine [place] 60 Mg Tablet PO 06/22/25 17:59 60 [...] gravis: (2) History of pulmonary embolism: (3) JAMISNO on CPAP: (4) Dyspnea: (5) Generalized weakness: [...] equipment to enhance the patient's a functional adventist Ensure adequate nutrition and hydration Sleep Discharge planning. Patient was personally seen by me, Dr. Bennett, on the day of encounter, reviewed the history and the relevant portions of the chart, including current orders, allied health and commercial sales consultant notes, labs/imaging and performed garcia elements of exam and I formulated the plan of care and facilitated the medical decision making. I completed a substantive portion of this encounter, the medical decision makingportion of this note in its entirety, including Allied health note review, nursing note review, commercial sales consultant note review, discussion with nursing and case management, and more than 50% of my time was spent on counseling and coordination of care, time spent 25 minutes Documented By: Fidel Bennett MD 2118 Signed By: <Electronically signed by Fidel Bennett MD> 06/30/242121 [facility] Work Phone: 1(321) 460-121611-10-2024 [place] [address] Physiatry(Rehab) Progress Note Signed Patient: Taurus Garcia MR#: [id number] : 1945 Acct:[id number] Age/Sex: 78 / M Adm Date: 4 Loc: Room: 4U0451-9 Type: ADM IN Attending Dr: Silvestre Grover [...] mg 06/22/24 14:58 Bisacodyl 10 Mg Supp.Rect AR 06/22/25 14:57 DAILY PRN Constipation Diclofenac Sodium 2 gm 06/27/24 14:00 06/30/24 14:34 Diclofenac Sodium 1% Gel 100 Gm Tube TOPICAL 06/27/25 13:59 Not Given TID DORI Docusate Sodium 100 mg 06/22/24 14:58 Docusate 100 Mg Capsule PO 06/22/25 14:57 BID PRN Constipation Docusate Sodium 283 mg 06/22/24 14:58 Docusate Enema 283 Mg/5 Ml Enema AR 06/22/25 14:57 DAILY PRN Constipation Fish Oil 1,000 mg 06/22/24 21:00 06/30/24 08:50 [place]-3/Fish Oil 1,000 Mg Capsule PO 06/22/25 20:59 [...] 20:59 40 mg BID DORI Administration Phenyleph/Shark Oil/[place] Butter 1 supp 06/22/24 14:57 Phenylephrine/[place] Butter 6.25 Mg/2211 Mg 1 Supp AR 06/22/25 14:56 BID PRN hemorrhoids Potassium Chloride [...] 08:59 15 mg DAILY DORI Administration Pyridostigmine [place] 60 mg 06/22/24 18:00 06/30/24 17:46 Pyridostigmine [place] 60 Mg Tablet PO 06/22/25 17:59 60 [...] equipment to enhance the patient's a functional adventist Ensure adequate nutrition and hydration Sleep Discharge planning. Patient was personally seen by me, Dr. Bennett, on the day of encounter, reviewed the history and the relevant portions of the chart, including current orders, allied health and commercial sales consultant notes, labs/imaging and performed garcia elements of exam and I formulated the plan of care and facilitated the medical decision making. I completed a substantive portion of this encounter, the medical decision makingportion of this note in its entirety, including Allied health note review, nursing note review, commercial sales consultant note review,discussion with nursing and case management, and more than 50% of my time was spent on counseling and coordination of care, time spent 25 minutes Documented By: Fidel Bennett MD 2118 Signed By: 06/30/242121 [facility]11-10-2024 Progress note Author Susanne Sharma [facility] Note Date/Time June 30, 2024 4:13pm [facility] [address] [place] [address] Hospitalist Progress Note Signed Patient: Taurus Garcia MR#: [id number] : 1945 Acct:[id number] Age/Sex: 78 / M Adm Date: 4 Loc: Room: 2H1119-0 Type: ADM IN Attending Dr: Silvestre Grover [...] mg 06/22/24 14:58 Bisacodyl 10 Mg Supp.Rect AR 06/22/25 14:57 DAILY PRN Constipation Diclofenac Sodium 2 gm 06/27/24 14:00 06/30/24 08:53 Diclofenac Sodium 1% Gel 100 Gm Tube TOPICAL 06/27/25 13:59 2 gm TID DORI Administration Docusate Sodium 100 mg 06/22/24 14:58 Docusate 100 Mg Capsule PO 06/22/25 14:57 BID PRN Constipation Docusate Sodium 283 mg 06/22/24 14:58 Docusate Enema 283 Mg/5 Ml Enema AR 06/22/25 14:57 DAILY PRN Constipation Fish Oil 1,000 mg 06/22/24 21:00 06/30/24 08:50 [place]-3/Fish Oil 1,000 Mg Capsule PO 06/22/25 20:59 [...] 20:59 40 mg BID DORI Administration Phenyleph/Shark Oil/[place] Butter 1 supp 06/22/24 14:57 Phenylephrine/[place] Butter 6.25 Mg/2211 Mg 1 Supp AR 06/22/25 14:56 BID PRN hemorrhoids Potassium Chloride [...] 08:59 15 mg DAILY DORI Administration Pyridostigmine [place] 60 mg 06/22/24 18:00 06/30/24 08:50 Pyridostigmine [place] 60 Mg Tablet PO 06/22/25 17:59 60 [...] <Electronically signed by Kevin Leo MD> 06/30/[address] [facility] Work Phone: 1(418) 100-833811-10-2024 [place] [id number] Hospitalist Progress Note Signed Patient: Taurus Garcia MR#: [id number] : 1945 Acct:[id number] Age/Sex: 78 / M Adm Date: 4 Loc: Room: 1R6713-5 Type: ADM IN Attending Dr: Silvestre Grover [...] mg 06/22/24 14:58 Bisacodyl 10 Mg Supp.Rect AR 06/22/25 14:57 DAILY PRN Constipation Diclofenac Sodium 2 gm 06/27/24 14:00 06/30/24 08:53 Diclofenac Sodium 1% Gel 100 Gm Tube TOPICAL 06/27/25 13:59 2 gm TID DORI Administration Docusate Sodium 100 mg 06/22/24 14:58 Docusate 100 Mg Capsule PO 06/22/25 14:57 BID PRN Constipation Docusate Sodium 283 mg 06/22/24 14:58 Docusate Enema 283 Mg/5 Ml Enema AR 06/22/25 14:57 DAILY PRN Constipation Fish Oil 1,000 mg 06/22/24 21:00 06/30/24 08:50 [place]-3/Fish Oil 1,000 Mg Capsule PO 06/22/25 20:59 [...] 20:59 40 mg BID DORI Administration Phenyleph/Shark Oil/[place] Butter 1 supp 06/22/24 14:57 Phenylephrine/[place] Butter 6.25 Mg/2211 Mg 1 Supp AR 06/22/25 14:56 BID PRN hemorrhoids Potassium Chloride [...] 08:59 15 mg DAILY DORI Administration Pyridostigmine [place] 60 mg 06/22/24 18:00 06/30/24 08:50 Pyridostigmine [place] 60 Mg Tablet PO 06/22/25 17:59 60 [...] 1145 Signed By: 06/30/24 1159 06/30/24 1613 [facility]11-08-2024 Progress note Author Silvestre Grover [facility] Note Date/Time June 28, 2024 2 :35pm [facility] [address] [place] [address] Physiatry(Rehab) Progress Note Signed Patient: Taurus Garcia MR#: [id number] : 1945 Acct:[id number] Age/Sex: 78 / M Adm Date: 4 Loc: Room: [address] [place] [address] Type: ADM IN Attending Dr: Silvestre Grover [...] mg 06/22/24 14:58 Bisacodyl 10 Mg Supp.Rect AR 06/22/25 14:57 DAILY PRN Constipation Diclofenac Sodium 2 gm 06/27/24 14:00 06/28/24 14:01 Diclofenac Sodium 1% Gel 100 Gm Tube TOPICAL 06/27/25 13:59 2 gm TID DORI Administration Docusate Sodium 100 mg 06/22/24 14:58 Docusate 100 Mg Capsule PO 06/22/25 14:57 BID PRN Constipation Docusate Sodium 283 mg 06/22/24 14:58 Docusate Enema 283 Mg/5 Ml Enema AR 06/22/25 14:57 DAILY PRN Constipation Fish Oil 1,000 mg 06/22/24 21:00 06/28/24 09:07 [place]-3/Fish Oil 1,000 Mg Capsule PO 06/22/25 20:59 [...] 20:59 40 mg BID DORI Administration Phenyleph/Shark Oil/[place] Butter 1 supp 06/22/24 14:57 Phenylephrine/[place] Butter 6.25 Mg/2211 Mg 1 Supp AR 06/22/25 14:56 BID PRN hemorrhoids Potassium Chloride [...] 08:59 15 mg DAILY DORI Administration Pyridostigmine [place] 60 mg 06/22/24 18:00 06/28/24 14:00 Pyridostigmine [place] 60 Mg Tablet PO 06/22/25 17:59 60 [...] equipment to enhance the patient's a functional adventist Ensure adequate nutrition and hydration Sleep Discharge planning. Patient was personally seen by me, Dr. Grover, on the day of encounter, reviewed the history and the relevant portions of the chart, including current orders, allied health and commercial sales consultant notes, labs/imaging and performed garcia elements of exam and I formulated the plan of care and facilitated the medical decision making. I completed a substantive portion of this encounter, the medical decision makingportion of this note in its entirety, including Allied health note review, nursing note review, commercial sales consultant note review, discussion with nursing and case management, and more than 50% of my time was spent on counseling and coordination of care, time spent 35 minutes Documented By: Silvestre Grover MD 06/28/24 1433 Signed By: <Electronically signed by Silvestre Grover MD> 06/28/[address] [facility] Work Phone: 1(399) 253-450911-08-2024 [place] [address] Physiatry(Rehab) Progress Note Signed Patient: Taurus Garcia MR#: [id number] : 1945 Acct:[id number] Age/Sex: 78 / M Adm Date: 4 Loc: Room: 7R3633-7 Type: ADM IN Attending Dr: Silvestre Grover [...] mg 06/22/24 14:58 Bisacodyl 10 Mg Supp.Rect AR 06/22/25 14:57 DAILY PRN Constipation Diclofenac Sodium 2 gm 06/27/24 14:00 06/28/24 14:01 Diclofenac Sodium 1% Gel 100 Gm Tube TOPICAL 06/27/25 13:59 2 gm TID DORI Administration Docusate Sodium 100 mg 06/22/24 14:58 Docusate 100 Mg Capsule PO 06/22/25 14:57 BID PRN Constipation Docusate Sodium 283 mg 06/22/24 14:58 Docusate Enema 283 Mg/5 Ml Enema AR 06/22/25 14:57 DAILY PRN Constipation Fish Oil 1,000 mg 06/22/24 21:00 06/28/24 09:07 [place]-3/Fish Oil 1,000 Mg Capsule PO 06/22/25 20:59 [...] 20:59 40 mg BID DORI Administration Phenyleph/Shark Oil/[place] Butter 1 supp 06/22/24 14:57 Phenylephrine/[place] Butter 6.25 Mg/2211 Mg 1 Supp AR 06/22/25 14:56 BID PRN hemorrhoids Potassium Chloride [...] 08:59 15 mg DAILY DORI Administration Pyridostigmine [place] 60 mg 06/22/24 18:00 06/28/24 14:00 Pyridostigmine [place] 60 Mg Tablet PO 06/22/25 17:59 60 [...] equipment to enhance the patient's a functional adventist Ensure adequate nutrition and hydration Sleep Discharge planning. Patient was personally seen by me, Dr. Grover, on the day of encounter, reviewed the history and therelevant portions of the chart, including current orders, allied health and commercial sales consultant notes, labs/imaging and performed garcia elements of exam and I formulated the plan of care and facilitated the medical decision making. I completed a substantive portion of this encounter, the medical decision makingportion of this note in its entirety, including Allied health note review, nursing note review, commercial sales consultant note review,discussion with nursing and case management, and more than 50% of my time was spent on counseling and coordination of care, time spent 35 minutes Documented By: Silvestre Grover MD 06/28/24 1433 Signed By: 06/28/24 1435 [facility]11-07-2024 Progress note Author Silvestre Grover [facility] Note Date/Time June 27, 2024 1 1:35am [facility] [address] [place] [address] Physiatry(Rehab) Progress Note Signed Patient: Taurus Garcia MR#: [id number] : 1945 Acct:[id number] Age/Sex: 78 / M Adm Date: 4 Loc: Room: 6B2603-2 Type: ADM IN Attending Dr: Silvestre Grover [...] mg 06/22/24 14:58 Bisacodyl 10 Mg Supp.Rect AR 06/22/25 14:57 DAILY PRN Constipation Diclofenac Sodium 2 gm 06/27/24 14:00 Diclofenac Sodium 1% Gel 100 Gm Tube TOPICAL 06/27/25 13:59 TID DORI Docusate Sodium 100 mg 06/22/24 14:58 Docusate 100 Mg Capsule PO 06/22/25 14:57 BID PRN Constipation Docusate Sodium 283 mg 06/22/24 14:58 Docusate Enema 283 Mg/5 Ml Enema AR 06/22/25 14:57 DAILY PRN Constipation Fish Oil 1,000 mg 06/22/24 21:00 06/27/24 09:00 [place]-3/Fish Oil 1,000 Mg Capsule PO 06/22/25 20:59 [...] 20:59 40 mg BID DORI Administration Phenyleph/Shark Oil/[place] Butter 1 supp 06/22/24 14:57 Phenylephrine/[place] Butter 6.25 Mg/2211 Mg 1 Supp AR 06/22/25 14:56 BID PRN hemorrhoids Potassium Chloride [...] 08:59 15 mg DAILY DORI Administration Pyridostigmine [place] 60 mg 06/22/24 18:00 06/27/24 09:01 Pyridostigmine [place] 60 Mg Tablet PO 06/22/25 17:59 60 [...] equipment to enhance the patient's a functional adventist Ensure adequate nutrition and hydration Sleep Discharge planning. Patient was personally seen by me, Dr. Grover, on the day of encounter, reviewed the history and the relevant portions of the chart, including current orders, allied health and commercial sales consultant notes, labs/imaging and performed garcia elements of exam and I formulated the plan of care and facilitated the medical decision making. I completed a substantive portion of this encounter, the medical decision makingportion of this note in its entirety, including Allied health note review, nursing note review, commercial sales consultant note review, discussion with nursing and case management, and more than 50% of my time was spent on counseling and coordination of care, time spent 35 minutes Documented By: Silvestre Grover MD 06/27/24 113 Signed By: <Electronically signed by Silvestre Grover MD> 06/27/249 [facility] Work Phone: 1(914) 282-943811-07-2024 [place] [address] Physiatry(Rehab) Progress Note Signed Patient: Taurus Garcia MR#: [id number] : 1945 Acct:[id number] Age/Sex: 78 / M Adm Date: 4 Loc: 5T Room: 7U7535-0 Type: ADM IN Attending Dr: Silvestre Grover [...] mg 06/22/24 14:58 Bisacodyl 10 Mg Supp.Rect AR 06/22/25 14:57 DAILY PRN Constipation Diclofenac Sodium 2 gm 06/27/24 14:00 Diclofenac Sodium 1% Gel 100 Gm Tube TOPICAL 06/27/25 13:59 TID DORI Docusate Sodium 100 mg 06/22/24 14:58 Docusate 100 Mg Capsule PO 06/22/25 14:57 BID PRN Constipation Docusate Sodium 283 mg 06/22/24 14:58 Docusate Enema 283 Mg/5 Ml Enema AR 06/22/25 14:57 DAILY PRN Constipation Fish Oil 1,000 mg 06/22/24 21:00 06/27/24 09:00 [place]-3/Fish Oil 1,000 Mg Capsule PO 06/22/25 20:59 [...] 20:59 40 mg BID DORI Administration Phenyleph/Shark Oil/[place] Butter 1 supp 06/22/24 14:57 Phenylephrine/[place] Butter 6.25 Mg/2211 Mg 1 Supp AR 06/22/25 14:56 BID PRN hemorrhoids Potassium Chloride [...] 08:59 15 mg DAILY DORI Administration Pyridostigmine [place] 60 mg 06/22/24 18:00 06/27/24 09:01 Pyridostigmine [place] 60 Mg Tablet PO 06/22/25 17:59 60 [...] equipment to enhance the patient's a functional adventist Ensure adequate nutrition and hydration Sleep Discharge planning. Patient was personally seen by me, Dr. Grover, on the day of encounter, reviewed the history and therelevant portions of the chart, including current orders, allied health and commercial sales consultant notes, labs/imaging and performed garcia elements of exam and I formulated the plan of care and facilitated the medical decision making. I completed a substantive portion of this encounter, the medical decision makingportion of this note in its entirety, including Allied health note review, nursing note review, commercial sales consultant note review,discussion with nursing and case management, and more than 50% of my time was spent on counseling and coordination of care, time spent 35 minutes Documented By: Silvestre Grover MD 06/27/241133 Signed By: 06/27/24 1135 [facility]11-06-2024 Progress note Author Silvestre Grover [facility] Note Date/Time June 26, 2024 1 :34pm [facility] [address] [place] [place] [address] Physiatry(Rehab) Progress Note Signed Patient: Taurus Garcia MR#: [id number] : 1945 Acct:[id number] Age/Sex: 78 / M Adm Date: 4 Loc: Room: [address] [place] [address] Type: ADM IN Attending Dr: Silvestre Grover [...] mg 06/22/24 14:58 Bisacodyl 10 Mg Supp.Rect AR 06/22/25 14:57 DAILY PRN Constipation Docusate Sodium 100 mg 06/22/24 14:58 Docusate 100 Mg Capsule PO 06/22/25 14:57 BID PRN Constipation Docusate Sodium 283 mg 06/22/24 14:58 Docusate Enema 283 Mg/5 Ml Enema AR 06/22/25 14:57 DAILY PRN Constipation Fish Oil 1,000 mg 06/22/24 21:00 06/26/24 08:26 [place]-3/Fish Oil 1,000 Mg Capsule PO 06/22/25 20:59 [...] 20:59 40 mg BID DORI Administration Phenyleph/Shark Oil/[place] Butter 1 supp 06/22/24 14:57 Phenylephrine/[place] Butter 6.25 Mg/2211 Mg 1 Supp AR 06/22/25 14:56 BID PRN hemorrhoids Potassium Chloride [...] 08:59 15 mg DAILY DORI Administration Pyridostigmine [place] 60 mg 06/22/24 18:00 06/26/24 08:26 Pyridostigmine [place] 60 Mg Tablet PO 06/22/25 17:59 60 [...] equipment to enhance the patient's a functional adventist Ensure adequate nutrition and hydration Sleep Discharge planning. Patient was personally seen by me, Dr. Grover, on the day of encounter, reviewed the history and the relevant portions of the chart, including current orders, allied health and commercial sales consultant notes, labs/imaging and performed garcia elements of exam and I formulated the plan of care and facilitated the medical decision making. I completed a substantive portion of this encounter, the medical decision makingportion of this note in its entirety, including Allied health note review, nursing note review, commercial sales consultant note review, discussion with nursing and case management, and more than 50% of my time was spent on counseling and coordination of care, time spent 37 minutes Documented By: Silvestre Grover MD 06/26/24 1331 Signed By: <Electronically signed by Silvestre Grover MD> 06/26/24 1334 [facility] Work Phone: 1(303) 678-388311-06-[address] [address] Physiatry(Rehab) Progress Note Signed Patient: Taurus Garcia MR#: [id number] : 1945 Acct:[id number] Age/Sex: 78 / M Adm Date: 4 Loc: Room: 6S5033-4 Type: ADM IN Attending Dr: Silvestre Grover [...] mg 06/22/24 14:58 Bisacodyl 10 Mg Supp.Rect AR 06/22/25 14:57 DAILY PRN Constipation Docusate Sodium 100 mg 06/22/24 14:58 Docusate 100 Mg Capsule PO 06/22/25 14:57 BID PRN Constipation Docusate Sodium 283 mg 06/22/24 14:58 Docusate Enema 283 Mg/5 Ml Enema AR 06/22/25 14:57 DAILY PRN Constipation Fish Oil 1,000 mg 06/22/24 21:00 06/26/24 08:26 [place]-3/Fish Oil 1,000 Mg Capsule PO 06/22/25 20:59 [...] 20:59 40 mg BID DORI Administration Phenyleph/Shark Oil/[place] Butter 1 supp 06/22/24 14:57 Phenylephrine/[place] Butter 6.25 Mg/2211 Mg 1 Supp AR 06/22/25 14:56 BID PRN hemorrhoids Potassium Chloride [...] 08:59 15 mg DAILY DORI Administration Pyridostigmine [place] 60 mg 06/22/24 18:00 06/26/24 08:26 Pyridostigmine [place] 60 Mg Tablet PO 06/22/25 17:59 60 [...] equipment to enhance the patient's a functional adventist Ensure adequate nutrition and hydration Sleep Discharge planning. Patient was personally seen by me, Dr. Grover, on the day of encounter, reviewed the history and therelevant portions of the chart, including current orders, allied health and commercial sales consultant notes, labs/imaging and performed garcia elements of exam and I formulated the plan of care and facilitated the medical decision making. I completed a substantive portion of this encounter, the medical decision makingportion of this note in its entirety, including Allied health note review, nursing note review, commercial sales consultant note review,discussion with nursing and case management, and more than 50% of my time was spent on counseling and coordination of care, time spent 37 minutes Documented By: Silvestre Grover MD 06/26/24 1331 Signed By: 06/26/24 1334 [facility]11-05-2024 Progress note Author Silvestre Grover [facility] Note Date/Time June 25, 2024 4 :17pm [facility] [address] [place] [address] Physiatry(Rehab) Progress Note Signed Patient: Taurus Garcia MR#: [id number] : 1945 Acct:[id number] Age/Sex: 78 / M Adm Date: 4 Loc: Room: [id number] Type: ADM IN Attending Dr: Silvestre Grover [...] mg 06/22/24 14:58 Bisacodyl 10 Mg Supp.Rect AR 06/22/25 14:57 DAILY PRN Constipation Docusate Sodium 100 mg 06/22/24 14:58 Docusate 100 Mg Capsule PO 06/22/25 14:57 BID PRN Constipation Docusate Sodium 283 mg 06/22/24 14:58 Docusate Enema 283 Mg/5 Ml Enema AR 06/22/25 14:57 DAILY PRN Constipation Fish Oil 1,000 mg 06/22/24 21:00 06/25/24 09:24 [place]-3/Fish Oil 1,000 Mg Capsule PO 06/22/25 20:59 [...] 20:59 40 mg BID DORI Administration Phenyleph/Shark Oil/[place] Butter 1 supp 06/22/24 14:57 Phenylephrine/[place] Butter 6.25 Mg/2211 Mg 1 Supp AR 06/22/25 14:56 BID PRN hemorrhoids Potassium Chloride 20 meq 06/22/24 14:57 Potassium Chloride Er 20 Meq Tab.Er.Prt PO 06/22/25 14:56 DAILY PRN Hypokalemia Potassium Chloride 10 meq 06/26/24 09:00 Potassium Chloride Er 10 Meq Capsule.Er PO 06/26/25 08:59 DAILY DORI Prednisone 15 mg 06/24/24 09:00 06/25/24 09:24 Prednisone 5 Mg Tablet PO 06/24/25 08:59 15 mg DAILY DORI Administration Pyridostigmine [place] 60 mg 06/22/24 18:00 06/25/24 09:24 Pyridostigmine [place] 60 Mg Tablet PO 06/22/25 17:59 60 [...] equipment to enhance the patient's a functional adventist Ensure adequate nutrition and hydration Sleep Discharge planning. Patient was personally seen by me, Dr. Grover, on the day of encounter, reviewed the history and the relevant portions of the chart, including current orders, allied health and commercial sales consultant notes, labs/imaging and performed garcia elements of exam and I formulated the plan of care and facilitated the medical decision making. I completed a substantive portion of this encounter, the medical decision makingportion of this note in its entirety, including Allied health note review, nursing note review, commercial sales consultant note review, discussion with nursing and [...] <Electronically signed by Silvestre Grover MD> 06/25/24 4765 [facility] Work Phone: 1(697) 572-795411-05-2024 History and physical note Author Antonia Grier [facility] Note Date/Time June 25, 2024 3 :19pm [facility] [address] [place] [address] Physiatry (Rehab) H&P Signed Patient: Taurus Garcia MR#: [id number] : 1945 Acct:[id number] Age/Sex: 78 / M Adm Date: 4 Loc: Room: [address] [place] [address] Type: ADM IN Attending Dr: Silvestre Grover MD Copies to: MD Komal Best II, MD Elena Turovskaya, SENSOR TECHNICIAN Silvestre Grover MD~ Date of Service: 06/22/2024 HPI [...] evaluate the burn and make treatment recommendations. [facility] Medical History GERD (gastroesophageal reflux disease) Chronic [...] mg PO DAILY 12/27/17 [History Confirmed 06/19/24] eekkuynk-dig-traqz acid 0.4 mg-lycopene 300 mcg-lutein 250 mcg [...] rectal suppository (Preparation H(phenyleph,cocoa buttr)) 1 supp AR BID PRN hemorrhoids #0 ea 06/22/24 [Rx] [...] 14 Days Expected Discharge Destination: Home Rehabilitation [facility]: 3.8- Myasthenia Gravis exacerbation Primary Diagnosis: as [...] 24 hour daily monitoring and intervention from [employer] as well as other consulting physicians including internal medicine as well as 24 hour daily digital marketing analyst nursing - for medical safe / optimal [...] equipment to enhance the patient's a functional adventist Ensure adequate nutrition and hydration Sleep Discharge planning. I spent 43 minutes for services, including lujf-zf-bxeo encounter with the patient, discussion of the case, plan of care, and exam; and gykqdfu-mw-nzys activities, such as reviewing pertinent commercial sales consultant documentation, recent therapy notes, laboratory and radiology studies, and discussion of case with care team including physician, nursing, leather case finisher, and therapists. More than 50 % of time was spent on patient/family counseling or coordination of care. Patient was personally seen by me, Dr. Bennett, on the day of encounter, within 24 hours of rehab admission, reviewed the history and the relevant portions of the chart, including current orders, allied health and commercial sales consultant notes, labs/imaging and performed garcia elements of exam and I formulated the plan of care and facilitated the medical decision making. I completed a substantive portion of this encounter, the medical decision making portion of this note in its entirety, including Allied health note review, nursing note review, commercial sales consultant note review, discussion with nursing and case management, and more than 50% of my time was spent on counseling and coordination of care, time spent 45 minutes Documented By: Antonia Grier APRN 06/22/24 1 500 Signed By: <Electronically signed by ZACH Grier> 06/23/24 1114 <Electronically signed by Silvestre Grover MD> 06/25/24 1519 <Electronically signed by Fidel Bennett MD> 06/24/[address] [facility] Work Phone: 1(591) 821-230911-05-2024 [place] [address] Physiatry(Rehab) Progress Note Signed Patient: Taurus Garcia MR#: [id number] : 1945 Acct:[id number] Age/Sex: 78 / M Adm Date: 4 Loc: Room: [address] [place] [address] Type: ADM IN Attending Dr: Silvestre Grover [...] mg 06/22/24 14:58 Bisacodyl 10 Mg Supp.Rect AR 06/22/25 14:57 DAILY PRN Constipation Docusate Sodium 100 mg 06/22/24 14:58 Docusate 100 Mg Capsule PO 06/22/25 14:57 BID PRN Constipation Docusate Sodium 283 mg 06/22/24 14:58 Docusate Enema 283 Mg/5 Ml Enema AR 06/22/25 14:57 DAILY PRN Constipation Fish Oil 1,000 mg 06/22/24 21:00 06/25/24 09:24 [place]-3/Fish Oil 1,000 Mg Capsule PO 06/22/25 20:59 [...] 20:59 40 mg BID DORI Administration Phenyleph/Shark Oil/[place] Butter 1 supp 06/22/24 14:57 Phenylephrine/[place] Butter 6.25 Mg/2211 Mg 1 Supp AR 06/22/25 14:56 BID PRN hemorrhoids Potassium Chloride 20 meq 06/22/24 14:57 Potassium Chloride Er 20 Meq Tab.Er.Prt PO 06/22/25 14:56 DAILY PRN Hypokalemia Potassium Chloride 10 meq 06/26/24 09:00 Potassium Chloride Er 10 Meq Capsule.Er PO 06/26/25 08:59 DAILY DORI Prednisone 15 mg 06/24/24 09:00 06/25/24 09:24 Prednisone 5 Mg Tablet PO 06/24/25 08:59 15 mg DAILY DORI Administration Pyridostigmine [place] 60 mg 06/22/24 18:00 06/25/24 09:24 Pyridostigmine [place] 60 Mg Tablet PO 06/22/25 17:59 60 [...] equipment to enhance the patient's a functional adventist Ensure adequate nutrition and hydration Sleep Discharge planning. Patient was personally seen by me, Dr. Grover, on the day of encounter, reviewed the history and therelevant portions of the chart, including current orders, allied health and commercial sales consultant notes, labs/imaging and performed garcia elements of exam and I formulated the plan of care and facilitated the medical decision making. I completed a substantive portion of this encounter, the medical decision makingportion of this note in its entirety, including Allied health note review, nursing note review, commercial sales consultant note review,discussion with nursing and case management, and more than 50% of my time was spent on counseling and coordination of care, time spent 45 minutes In addition to above, patient's case reviewed at weekly team conference, discussed progress and goals of care, barriers/problems to date and discharge planning. Documented By: Silvestre Grover MD 06/25/24 1052 Signed By: 06/25/24 1617 [facility]11-05-2024 History and physical note[address] [address] Physiatry (Rehab) H&P Signed Patient: Taurus Garcia MR#: [id number] : 1945 Acct:[id number] Age/Sex: 78 / M Adm Date: 4 Loc: 5T Room: 2X0047-7 Type: ADM IN Attending Dr: Silvestre Grover [...] days. No consideration for IVIG at this [facility]. Pulmonary services consulted and assisted with CPAP [...] evaluate the burn and make treatment recommendations. [facility] Medical History GERD (gastroesophageal reflux disease) Chronic [...] mg PO DAILY 12/27/17 [History Confirmed 06/19/24] elmnmamh-cqw-vbxey acid 0.4 mg-lycopene 300 mcg-lutein 250 mcg [...] 10 meq PO DAILY 30days #30 tabs 10/20/23 [Rx Confirmed 06/19/24] prednisone 10 mg tablet [...] % rectal suppository (Preparation H(phenyleph,cocoa buttr))1 supp AR BID PRN hemorrhoids #0 ea 06/22/24 [Rx] [...] 14 Days Expected Discharge Destination: Home Rehabilitation [facility]: 3.8- Myasthenia Gravis exacerbation Primary Diagnosis: as [...] 24 hour daily monitoring and intervention from [employer] as well as other consulting physicians including internal medicine as well as 24 hour daily digital marketing analyst nursing - for medical safe / optimal [...] equipment to enhance the patient's a functional adventist Ensure adequate nutrition and hydration Sleep Discharge planning. I spent 43 minutes for services, including jahy-ag-faja encounter with the patient, discussion of the case, plan of care, and exam; and qfxleaj-tr-cccv activities, such as reviewing pertinent commercial sales consultant documentation, recent therapy notes, laboratory and radiology studies, and discussion of case with care team including physician, nursing, leather case finisher, and therapists. More than 50 % of time was spent on patient/family counseling or coordination of care. Patient was personally seen by me, Dr. Bennett, on the day of encounter, within 24 hours of rehab admission, reviewed the history and the relevant portions of the chart, including current orders, allied health and commercial sales consultant notes, labs/imaging and performed garcia elements of exam and I formulatedthe plan of care and facilitated the medical decision making. I completed a substantive portion of this encounter, the medical decision making portion of this note in its entirety, including Allied health note review, nursing note review, commercial sales consultant note review, discussion with nursing and case management, and more than 50% of my time was spent on counseling and coordination of care, time spent 45 minutes Documented By: Antonia Grier APRN 06/22/24 1 500 Signed By: 06/23/24 1114 06/25/24 1519 06/24/24 1352 [facility]11-04-2024 Progress note Author Fidel Bennett [facility] Note Date/Time June 24, 2024 1 :59pm [facility] [address] [place] [address] Physiatry(Rehab) Progress Note Signed Patient: Taurus Garcia MR#: [id number] : 1945 Acct:[id number] Age/Sex: 78 / M Adm Date: 4 Loc: 5T Room: 2M9123-3 Type: ADM IN Attending Dr: Silvestre Grover [...] mg 06/22/24 14:58 Bisacodyl 10 Mg Supp.Rect AR 06/22/25 14:57 DAILY PRN Constipation Docusate Sodium 100 mg 06/22/24 14:58 Docusate 100 Mg Capsule PO 06/22/25 14:57 BID PRN Constipation Docusate Sodium 283 mg 06/22/24 14:58 Docusate Enema 283 Mg/5 Ml Enema AR 06/22/25 14:57 DAILY PRN Constipation Fish Oil 1,000 mg 06/22/24 21:00 06/24/24 08:20 [place]-3/Fish Oil 1,000 Mg Capsule PO 06/22/25 20:59 [...] 20:59 40 mg BID DORI Administration Phenyleph/Shark Oil/[place] Butter 1 supp 06/22/24 14:57 Phenylephrine/[place] Butter 6.25 Mg/2211 Mg 1 Supp AR 06/22/25 14:56 BID PRN hemorrhoids Potassium Chloride 20 meq 06/22/24 14:57 Potassium Chloride Er 20 Meq Tab.Er.Prt PO 06/22/25 14:56 DAILY PRN Hypokalemia Potassium Chloride 10 meq 06/26/24 09:00 Potassium Chloride Er 10 Meq Capsule.Er PO 06/26/25 08:59 DAILY DORI Prednisone 15 mg 06/24/24 09:00 06/24/24 08:20 Prednisone 5 Mg Tablet PO 06/24/25 08:59 15 mg DAILY DORI Administration Pyridostigmine [place] 60 mg 06/22/24 18:00 06/24/24 08:20 Pyridostigmine [place] 60 Mg Tablet PO 06/22/25 17:59 60 [...] equipment to enhance the patient's a functional adventist Ensure adequate nutrition and hydration Sleep Discharge planning. Patient was personally seen by me, Dr. Bennett, on the day of encounter, reviewed the history and the relevant portions of the chart, including current orders, allied health and commercial sales consultant notes, labs/imaging and performed garcia elements of exam and I formulated the plan of care and facilitated the medical decision making. I completed a substantive portion of this encounter, the medical decision makingportion of this note in its entirety, including Allied health note review, nursing note review, commercial sales consultant note review, discussion with nursing and case management, and more than 50% of my time was spent on counseling and coordination of care, time spent 25 minutes Documented By: Fidel Bennett MD 1356 Signed By: <Electronically signed by Fidel Bennett MD> 06/24/[address] [facility] Work Phone: 1(132) 972-901111-04-2024 [place] [address] Physiatry(Rehab) Progress Note Signed Patient: Taurus Garcia MR#: [id number] : 1945 Acct:[id number] Age/Sex: 78 / M Adm Date: 4 Loc: 5T Room: 5F1113-6 Type: ADM IN Attending Dr: Silvestre Grover [...] days. No consideration for IVIG at this [facility]. Pulmonary services consulted and assisted with CPAP [...] mg 06/22/24 14:58 Bisacodyl 10 Mg Supp.Rect AR 06/22/25 14:57 DAILY PRN Constipation Docusate Sodium 100 mg 06/22/24 14:58 Docusate 100 Mg Capsule PO 06/22/25 14:57 BID PRN Constipation Docusate Sodium 283 mg 06/22/24 14:58 Docusate Enema 283 Mg/5 Ml Enema AR 06/22/25 14:57 DAILY PRN Constipation Fish Oil 1,000 mg 06/22/24 21:00 06/24/24 08:20 [place]-3/Fish Oil 1,000 Mg Capsule PO 06/22/25 20:59 [...] 20:59 40 mg BID DORI Administration Phenyleph/Shark Oil/[place] Butter 1 supp 06/22/24 14:57 Phenylephrine/[place] Butter 6.25 Mg/2211 Mg 1 Supp AR 06/22/25 14:56 BID PRN hemorrhoids Potassium Chloride 20 meq 06/22/24 14:57 Potassium Chloride Er 20 Meq Tab.Er.Prt PO 06/22/25 14:56 DAILY PRN Hypokalemia Potassium Chloride 10 meq 06/26/24 09:00 Potassium Chloride Er 10 Meq Capsule.Er PO 06/26/25 08:59 DAILY DORI Prednisone 15 mg 06/24/24 09:00 06/24/24 08:20 Prednisone 5 Mg Tablet PO 06/24/25 08:59 15 mg DAILY DORI Administration Pyridostigmine [place] 60 mg 06/22/24 18:00 06/24/24 08:20 Pyridostigmine [place] 60 Mg Tablet PO 06/22/25 17:59 60 [...] equipment to enhance the patient's a functional adventist Ensure adequate nutrition and hydration Sleep Discharge planning. Patient was personally seen by me, Dr. Bennett, on the day of encounter, reviewed the history and the relevant portions of the chart, including current orders, allied health and commercial sales consultant notes, labs/imaging and performed garcia elements of exam and I formulated the plan of care and facilitated the medical decision making. I completed a substantive portion of this encounter, the medical decision makingportion of this note in its entirety, including Allied health note review, nursing note review, commercial sales consultant note review,discussion with nursing and case management, and more than 50% of my time was spent on counseling and coordination of care, time spent 25 minutes Documented By: Fidel Bennett MD 135 Signed By: 06/24/24 1359 [facility]11-03-2024 Consult note Author Meera Vargas [facility] Note Date/Time June 23, 2024 5 :21pm [facility] [address] [place] [address] Hospitalist Consult Note Signed Patient: Taurus Garcia MR#: [id number] : 1945 Acct:[id number] Age/Sex: 78 / M Adm Date: 4 Loc: Room: [address] [place] [address] Type: ADM IN Attending Dr: Silvestre Grover MD Copies to: MD Silvestre Gonsalves II, MD Kristopher L Lindbloom, DO Meera Vargas, SENSOR TECHNICIAN~ HPI DATE OF CONSULTATION: 06/23/24 REQUESTING PROVIDER: [...] negative unless noted below or in HPI [facility] Medical History (Updated 06/23/24 @ 16:23 by [...] mg PO DAILY 12/27/17 [History Confirmed 06/22/24] hkcxvunv-gxw-dklly acid 0.4 mg-lycopene 300 mcg-lutein 250 mcg [...] rectal suppository (Preparation H(phenyleph,cocoa buttr)) 1 supp AR BID PRN hemorrhoids #0 ea 06/22/24 [Rx [...] mg 06/22/24 14:58 Bisacodyl 10 Mg Supp.Rect AR 06/22/25 14:57 DAILY PRN Constipation Docusate Sodium 100 mg 06/22/24 14:58 Docusate 100 Mg Capsule PO 06/22/25 14:57 BID PRN Constipation Docusate Sodium 283 mg 06/22/24 14:58 Docusate Enema 283 Mg/5 Ml Enema AR 06/22/25 14:57 DAILY PRN Constipation Fish Oil 1,000 mg 06/22/24 21:00 06/23/24 09:15 [place]-3/Fish Oil 1,000 Mg Capsule PO 06/22/25 20:59 [...] 20:59 40 mg BID DORI Administration Phenyleph/Shark Oil/[place] Butter 1 supp 06/22/24 14:57 Phenylephrine/[place] Butter 6.25 Mg/2211 Mg 1 Supp AR 06/22/25 14:56 BID PRN hemorrhoids Potassium Chloride [...] Tablet PO 06/24/25 08:59 DAILY DORI Pyridostigmine [place] 60 mg 06/22/24 18:00 06/23/24 13:19 Pyridostigmine [place] 60 Mg Tablet PO 06/22/25 17:59 60 [...] % (Auto) 80.3, Lymph % (Auto) 10.7, Delta % (Auto) 8.7, Eos % (Auto) 0.1, Baso % (Auto) 0.2, Nucleat RBC Rel Count 0.1, Neut # (Auto) 9.1 H, Lymph # (Auto) 1.2, Delta # (Auto) 1.0 H, Eos # (Auto) [...] signed by Mateo Horne DO> 06/23/[address] [facility] Work Phone: 1(526) 193-624011-03-2024 [place] [id number] Hospitalist Consult Note Signed Patient: Tuarus Garcia MR#: [id number] : 1945 Acct:[id number] Age/Sex: 78 / M Adm Date: 4 Loc: Room: 4O8070-6 Type: ADM IN Attending Dr: Silvestre Grover MD Copies to: MD Silvestre Gonsalves II, DO Meera Peacock APRN~ HPI DATE OF CONSULTATION: 06/23/24 REQUESTING [...] negative unless noted below or in HPI [facility] Medical History (Updated 06/23/24 @ 16:23 by [...] mg PO DAILY 12/27/17 [History Confirmed 06/22/24] kyglmjck-ajp-bafhu acid 0.4 mg-lycopene 300 mcg-lutein 250 mcg [...] % rectal suppository (Preparation H(phenyleph,cocoa buttr))1 supp AR BID PRN hemorrhoids #0 ea 06/22/24 [Rx [...] mg 06/22/24 14:58 Bisacodyl 10 Mg Supp.Rect AR 06/22/25 14:57 DAILY PRN Constipation Docusate Sodium 100 mg 06/22/24 14:58 Docusate 100 Mg Capsule PO 06/22/25 14:57 BID PRN Constipation Docusate Sodium 283 mg 06/22/24 14:58 Docusate Enema 283 Mg/5 Ml Enema AR 06/22/25 14:57 DAILY PRN Constipation Fish Oil 1,000 mg 06/22/24 21:00 06/23/24 09:15 [place]-3/Fish Oil 1,000 Mg Capsule PO 06/22/25 20:59 1,000 mg BID DORI Administration Furosemide 40 mg 06/23/24 08:00 06/23/24 09:16 Furosemide 40 Mg Tablet PO 06/23/25 07:59 40 mg DAILY.8A DOIR Administration Gabapentin 300 mg 06/22/24 21:00 06/23/24 [...] 20:59 40 mg BID DORI Administration Phenyleph/Shark Oil/[place] Butter 1 supp 06/22/24 14:57 Phenylephrine/[place] Butter 6.25 Mg/2211 Mg 1 Supp AR 06/22/25 14:56 BID PRN hemorrhoids Potassium Chloride [...] Tablet PO 06/24/25 08:59 DAILY DORI Pyridostigmine [place] 60 mg 06/22/24 18:00 06/23/24 13:19 Pyridostigmine [place] 60 Mg Tablet PO 06/22/25 17:59 60 [...] % (Auto) 80.3, Lymph % (Auto) 10.7, Delta % (Auto) 8.7, Eos % (Auto) 0.1, Baso % (Auto) 0.2, Nucleat RBC Rel Count 0.1, Neut # (Auto) 9.1 H, Lymph # (Auto) 1.2, Delta # (Auto) 1.0 H, Eos # (Auto) [...] 1451 Signed By: 06/23/24 1624 06/23/24 1721 [facility]11-01-2024 Consult note Author Fidel Bennett [facility] June 21, 2024 2:55pm Note Date/Time June 21, 2024 1 2:47pm [facility] [address] [place] [address] Physiatry (Rehab) Consult Note Signed Patient: Taurus Garcia MR#: [id number] : 1945 Acct:[id number] Age/Sex: 78 / M Adm Date: 4 Loc: Room: [address] [place] [address] Type: ADM IN Attending Dr: Mateo Horne DO Copies to: MD Komal Best II, MD Kristopher L Lindbloom, DO~ HPI Consult Date: 06/21/24 Requesting Physician: Mateo Horne DO Primary Care Provider: Komal Schaffer II, MD Consult Narrative Reason for consult: [...] negative unless noted below or in HPI [facility] Medical History (Updated 06/19/24 @ 18:52 by [...] mg PO DAILY 12/27/17 [History Confirmed 06/19/24] gyfkgzpo-eex-wayaa acid 0.4 mg-lycopene 300 mcg-lutein 250 mcg [...] 11:29 06/21/24 11:29 06/21/24 11:29 06/21/24 11:06/21/24 11:06/21/24 11:06/19/24 23:54 Narrative: Gen: Awake, oriented, cooperative. Appears [...] % (Auto) 81.8 Lymph % (Auto) 8.9 Delta % (Auto) 9.1 Eos % (Auto) 0.0 Baso % (Auto) 0.2 Nucleat RBC Rel Count 0.1 Neut # (Auto) 9.6 H Lymph # (Auto) 1.0 Delta # (Auto) 1.1 H Eos # (Auto) [...] chart, including current orders, allied health and commercial sales consultant notes, labs/imaging and performed garcia elements of exam and I formulated the plan of care and facilitated the medical decision making. I completed a substantive portion of this encounter, the medical decision makingportion of this note in its entirety, including Allied health note review, nursing note review, commercial sales consultant note review, discussion with nursing and case management, and more than 50% of my time was spent on counseling and coordination of care, time spent 60 minutes Documented By: Fidel Bennett MD 1227 Signed By: <Electronically signed by Fidel Bennett MD> 06/21/[address] [facility] Work Phone: 1([phone]) 489-171811-01-2024 Progress note Author Jamel Packer [facility] June 21, 2024 2:12pm Note Date/Time June 21, 2024 2 :12pm [facility] [address] [place] [address] Neurology Progress Note Signed Patient: Taurus Garcia MR#: [id number] : 1945 Acct:[id number] Age/Sex: 78 / M Adm Date: 4 Loc: Room: [address] [place] [address] Type: ADM IN Attending Dr: Mateo Horne DO Copies to: ~ Date of Service: 06/21/2024 Exam Physical Exam Vital Signs: Temp Pulse Resp BP Pulse Ox O2 Del Method FiO2 97.9 F 61 16 114/66 92 L Room Air 06/21/24 11:29 06/21/24 11:29 06/21/24 11:29 06/21/24 [...] signed by Jamel Packer DO> 06/21/24 1412 [facility] Work Phone: 1(546) 739-994811-01-2024 Progress note Author Mateo Horne [facility] June 21, 2024 2:09pm Note Date/Time June 21, 2024 2 :03pm [facility] [address] [place] [address] Hospitalist Progress Note Signed Patient: Taurus Garcia MR#: [id number] : 1945 Acct:[id number] Age/Sex: 78 / M Adm Date: 4 Loc: Room: [address] [place] [address] Type: ADM IN Attending Dr: Mateo Horne [...] 61 16 114/66 92 L Room Air 06/21/24 11:29 06/21/24 11:29 06/21/24 11:29 06/21/24 11:29 06/21/24 11:29 06/21/24 11:06/19/24 23:54 Narrative: GEN: Awake, alert, oriented [...] 20:59 40 mg BID DORI Administration Phenyleph/Shark Oil/[place] Butter 1 supp 06/19/24 21:00 Phenylephrine/[place] Butter 6.25 Mg/2211 Mg 1 Supp AR 06/19/25 20:59 BID PRN hemorrhoids Potassium Chloride [...] 09:01 60 mg DAILY DORI Administration Pyridostigmine [place] 90 mg 06/19/24 18:00 06/21/24 08:15 Pyridostigmine [place] 60 Mg Tablet PO 06/19/25 17:59 90 [...] elevated blood pressure to be problematic and administrative representative of advancement of his chronic disease [...] starting tomorrow. Documented By: Mateo Horne DO 1359 Signed By: <Electronically signed by Mateo Horne, > 06/21/24 1401 [facility] Work Phone: 1(397) 833-365811-01-2024 Progress note Author Abi Biswas [facility] June 21, 2024 10:32am Note Date/Time June 21, 2024 1 0:32am [facility] [address] [place] [address] Pulmonology Progress Note Signed Patient: Taurus Garcia MR#: [id number] : 1945 Acct:[id number] Age/Sex: 78 / M Adm Date: 4 Loc: Room: [address] [place] [address] Type: ADM IN Attending Dr: Mateo Horne [...] signed by Abi Biswas MD> 06/21/24 1032 [facility] Work Phone: 1(336) 174-663010-31-2024 Progress note Author Jamel Packer [facility] June 20, 2024 2:46pm Note Date/Time June 20, 2024 2 :46pm [facility] [address] [place] [address] Neurology Progress Note Signed Patient: Taurus Garcia MR#: [id number] : 1945 Acct:[id number] Age/Sex: 78 / M Adm Date: 4 Loc: Room: 2X2090-3 Type: ADM IN Attending Dr: Mateo Horne [...] follow Documented By: Jamel Packer DO 06/20/24 144 Signed By: <Electronically signed by Jamel Packer DO> 06/20/24 1446 [facility] Work Phone: 1(183) 370-910710-31-2024 Progress note Author Abi Biswas [facility] June 20, 2024 2:38pm Note Date/Time June 20, 2024 2 :34pm [facility] [address] [place] [address] Pulmonology Progress Note Signed Patient: Taurus Garcia MR#: [id number] : 1945 Acct:[id number] Age/Sex: 78 / M Adm Date: 4 Loc: Room: [address] [place] [address] Type: ADM IN Attending Dr: Mateo Horne [...] in ICU Documented By: Abi Biswas MD 8045 Signed By: <Electronically signed by Abi Biswas MD> 06/20/24 1438 [facility] Work Phone: 1(471) 531-826210-31-2024 Progress note Author Mateo Horne [facility] June 20, 2024 9:47am Note Date/Time June 20, 2024 9 :47am [facility] [address] [place] [address] Hospitalist Progress Note Signed Patient: Taurus Garcia MR#: [id number] : 1945 Acct:[id number] Age/Sex: 78 / M Adm Date: 4 Loc: Room: [address] [place] [address] Type: ADM IN Attending Dr: Mateo Horne [...] mg 06/19/24 14:21 Bisacodyl 10 Mg Supp.Rect AR 06/19/25 14:20 DAILY PRN Constipation Bisacodyl 10 mg 06/19/24 14:21 Bisacodyl [address] Tablet.Dr PO 06/19/25 14:20 DAILY PRN Constipation Docusate Sodium 100 mg 06/19/24 21:00 06/20/24 09:21 Docusate 100 Mg Capsule [...] 20:59 40 mg BID DORI Administration Phenyleph/Shark Oil/[place] Butter 1 supp 06/19/24 21:00 Phenylephrine/[place] Butter 6.25 Mg/2211 Mg 1 Supp AR 06/19/25 20:59 BID PRN hemorrhoids Polyethylene Glycol [...] 14:19 60 mg DAILY DORI Administration Pyridostigmine [place] 90 mg 06/19/24 18:00 06/20/24 09:21 Pyridostigmine [place] 60 Mg Tablet PO 06/19/25 17:59 90 [...] elevated blood pressure to be problematic and administrative representative of advancement of his chronic disease [...] and recommended that he go to the [address] [place] [address] acute inpatient rotation unit. Documented By: Mateo Horne DO 0941 Signed By: <Electronically signed by Mateo Horne DO> 06/20/2447 [facility] Work Phone: 1([phone]) 879-589210-30-2024 Consult note Author Abi Biswas [facility] June 19, 2024 6:54pm Note Date/Time June 19, 2024 6 :54pm [facility] [address] [place] [address] Pulmonology Consult Note Signed Patient: Taurus Garcia MR#: [id number] : 1945 Acct:[id number] Age/Sex: 78 / M Adm Date: 4 Loc: Room: [address] [place] [address] Type: ADM IN Attending Dr: Mateo Horne [...] walks with a walker. He came to [facility] ED and was admitted to the ICU. [...] Review of Systems Review of systems: see [facility] Medical History (Updated 06/19/24 @ 18:52 [...] mg PO DAILY 12/27/17 [History Confirmed 06/19/24] kmeifagl-ydh-tmkoe acid 0.4 mg-lycopene 300 mcg-lutein 250 mcg [...] will follow Documented By: Abi Biswas MD 1839 Signed By: <Electronically signed by Abi Biswas MD> 06/19/24 185 [facility] Work Phone: 1([phone]) 792-665710-30-2024 Consult note Author Jamel Packer [facility] June 19, 2024 3:00pm Note Date/Time June 19, 2024 3 :03pm [facility] [address] [place] [address] Neurology Consult Note Signed Patient: Taurus Garcia MR#: [id number] : 1945 Acct:[id number] Age/Sex: 78 / M Adm Date: 4 Loc: Room: [address] [place] [address] Type: ADM IN Attending Dr: Mateo Horne DO Copies to: DO Komal Bajwa II, MD Kristopher L Lindbloom, DO~ HPI Consult Date: 06/19/24 Edge Beader: Jamel Packer DO [facility] Medical History (Updated 06/19/24 @ 14:59 by [...] mg PO DAILY 12/27/17 [History Confirmed 06/19/24] wsjroaqu-trj-sfvhi acid 0.4 mg-lycopene 300 mcg-lutein 250 mcg [...] PNEUMONIA. Impression dictated by: Silvestre Diallo Jr., D.O.06/19/2024 10:01 AM Dictation Location: [facility]- Therapy Recommendations Therapy Recommendations: ST Recommendations ST [...] follow Documented By: Jamel Packer DO 06/19/24 4670 Signed By: <Electronically signed by Jmael Packer DO> 06/19/[address] [facility] Work Phone: 1(791) 688-266610-30-2024 History and physical note Author Mateo Horne [facility] June 19, 2024 2:37pm Note Date/Time June 19, 2024 2 :37pm [facility] [address] [place] [address] Hospitalist H&P Signed Patient: Taurus Garcia MR#: [id number] : 1945 Acct:[id number] Age/Sex: 78 / M Adm Date: 4 Loc: Room: [address] [place] [address] Type: ADM IN Attending Dr: Mateo Horne DO Copies to: MD Mateo Gonsalves II, DO~ HPI DATE OF EXAMINATION: 06/19/24 CHIEF COMPLAINT: [...] Year ago, inSeptember, he presented to the [facility] emergency room and had to be intubated. [...] except as mentioned elsewhere in the documentation. [facility] Medical History (Updated 06/19/24 @ 14:33 by [...] mg PO DAILY 12/27/17 [History Confirmed 06/19/24] wvjrmuyl-cxu-nudth acid 0.4 mg-lycopene 300 mcg-lutein 250 mcg [...] % (Auto) 27.5 % (.) 06/19/24 09:49 Delta % (Auto) 11.3 % (.) 06/19/24 09:49 Eos % (Auto) 1.2 % (.) 06/19/24 09:49 Baso % (Auto) 1.0 % (.) 06/19/24 09:49 Nucleat RBC Rel Count 0.1 /100 WBC (0-0.5) 06/19/24 09:49 Neut # (Auto) 5.1 x10E3/uL (1.8-7.7) 06/19/24 09:49 Lymph # (Auto) 2.4 x10E3/uL (1.00-4.8) 06/19/24 09:49 Delta # (Auto) 1.0 x10E3/uL (0.0-0.8) H 06/19/24 [...] signed by Mateo Horne, > 06/19/24 1437 [facility] Work Phone: 1(453) 660-628410-30-2024 Evaluation note* Diagnosis Onset Date Resolution Status [...] mobility and activities of daily living inactive 2023 2:40pm Generalized weakness deleted Carlos barajas 2023 2:40pm [facility] Work Phone: 1([phone] 449-318510-30-2024 Evaluation note* Diagnosis Onset Date Resolution Status [...] mobility and activities of daily living inactive Novem 2023 2:40pm Generalized weakness deleted Nove mber 2023 2:40pm MATT (acute kidney injury) acute July 09, 2024 5:43pm Change in vision acute July 09, 2024 5:43pm Generalized weakness acute Nove mber 2023 5:43pm [facility] Work Phone: 1([phone]) 231-219610-30-2024 Evaluation note* Diagnosis Onset Date Resolution Status [...] June 19, 2024 1:56pm Generalized weakness deleted Oct2023 1:56pm Chronic anticoagulation acute N ovember 2023 2:40pm Dyspnea acute June 22, 2024 2:40pm History of pulmonary embolism acute June 22, 2024 2:40pm JAMISON on CPAP acute June 22, 2024 2:40pm Acute exacerbation of myasthenia gravis resolved June 22, 2024 2:40pm Hypertension resolved June 2:40pm Impaired mobility and activities of daily living inactive 2023 2:40pm Generalized weakness deleted Nove [facility] 2023 2:40pm Myasthenia gravis acute Novembe r 2023 5:43pm MATT (acute kidney injury) resolved July 09, 2024 5:43pm Change in vision deleted July 09, 2024 5:43pm Generalized weakness deleted Carlos [facility] 2023 5:43pm Chronic anticoagulation acute D ecember 2023 4:47pm Chronic back pain acute Decembe r 2023 4:47pm Counseling regarding advance directives and goals of care acute Dec emb2023 4:47pm Generalized weakness acute Dece mber 2023 4:47pm GERD (gastroesophageal reflu x disease) acute July 28 4:47pm History of pulmonary embolism acute July 28, 2024 4:47pm HTN (hypertension) acute Decemb er 2023 4:47pm Morbid obesity with BMI of 45.0-49.9, adult acute July 28, 2 024 4:47pm Myasthenia gravis acute Decembe r 2023 4:47pm JAMISON on CPAP acute July 28, 2024 4:47pm Unable to ambulate acute Decemb er 2023 4:47pm Contusion of right orbit resolved July 28, 2024 4:47pm Head injury with fracture of skull resolved July 28 4:47pm Hypomagnesemia resolved July 282023 4:47pm Syncope resolved July 28, 2024 4:47pm Chronic back pain acute September 11, 2024 10:57am HTN (hypertension) acute 2024 10:57am Morbid obesity with BMI of 45.0-49.9, adult acute September 11, 025 10:57am Myasthenia gravis acute September 11, 2024 10:57am Myasthenia gravis in crisis acute September 11, 2024 10:57am JAMISON on CPAP acute September 11, 2024 10:57am [facility] Work Phone: 1([phone]) 708-940910-24-2024 History of Present illness Narrative* Real Og, SRIDHAR - 06/13/2024 2:00 PM EDT Patient: Taurus Garcia : 1945 PCP: Komal Schaffer MD SUBJECTIVE This is a 78 y.o. [...] FOOD, Disp: 180 tablet, Rfl: 3 HYDROcodone-acetaminophen ([place]) 5-325 MG tablet, Take 1 tablet by [...] Disp: 100 tablet, Rfl: 3 nystatin (Mycostatin) 574556 UNIT/GM powder, APPLY TO THE AFFECTED AREA(S) [...] min Stress: No Stress Concern Present (03/17/2023) [place] of Occupational Health - Occupational Stress Questionnaire Feeling of Stress : Only a little Social Connections: Moderately Isolated (03/17/2023) Social Connection and Isolation Panel [NHANES] Frequency of Communication with Friends and Family: More than three times a week Frequency of Social Gatherings with Friends and Family: Once a week Attends [employer] Services: Never Active Member of Clubs or [...] condition. Real Og DPM documented in this encounterAlvin J. Siteman Cancer [id number] History of Present illness Narrative* Stanley Saunders DO - 05/27/2024 1:00 PM EDT Images [...] HYDROcodone-acetaminophen 5-325 MG tablet; Commonly known as: [place] lisinopril 20 MG tablet; TAKE 1 TABLET BY MOUTH ONCE DAILY loratadine 10 MG tablet; Commonly known as: Claritin nebivolol 10 MG tablet; Commonly known as: Bystolic; Take 1 tablet (10 mg) by mouth Daily nystatin 252726 UNIT/GM powder; Commonly known as: Mycostatin omega-3 [...] edema 2009 /pucker Muscle cramp Myasthenia gravis (CMS/HCC) 12/27/2017 [...] wrist extensors , wrist flexor , and college or university faculty member strength 5/5. LUE strength deltoid , biceps , triceps , wrist extensors , wrist flexor , and college or university faculty member strength 5/5. RLE strength iliopsoas, quadriceps, tibialis [...] reflex 1+. LLE Knee reflex 1+. Coordination: Vxpxbp-yf-gskn testing normal. Rapid alternating movements are normal. Gait: Normal. Review and summary of old records: I reviewed documentation from the patient's emergency department visit at [facility] on 02/12/24. The patient presented with mild [...] MRI of the brain without contrast at [facility] on 02/20/18: Unremarkable EMG of the bilateral upper extremities on 06/19/17: Bilateral median neuropathy such as in carpal tunnel syndrome which is mild in degree electrically. Also a remote right C8 radiculopathy. 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 MRI of the brain in 02/2018 was unremarkable. He denies ptosis, double vision, difficulty speaking, difficulty swallowing, orincreased shortness of breath since the prior neurology appointment. The patient was evaluated at [facility] ED on 02/12/24 due to increased generalized [...] index (BMI) of45.0 to 49.9 in adult (CMS/[facility]) The patient is obese. PLAN: [...] new or worsening symptoms. documented in this encounterAlvin J. Siteman Cancer [id number] History of Present illness Narrative* Komal Schaffer MD - 10/05/2023 1:15 PM EST Subjective [...] by mouth in the morning. nystatin (Mycostatin) 400045 UNIT/GM powder APPLY TO THE AFFECTED AREA(S) [...] current healthcare providers: Patient Care Team: Komal Schaffer MD as PCP - General (Internal Medicine) Komal Schaffer MD as PCP - ACO Reach Medicare [...] Yes Cognitive Screening Three Word Registration: Banana, [place], Chair Clock Drawing: Normal Clock - 2 Three Word Recall: All 3 words correct - 3 Total Score (0-5 Points): 5 Pain Assessment Pain Score: 4 Advance Care Planning Do you have a living will?: Yes Do you have a medical power of contract attorney?: Yes Who is your medical power of contract attorney?: --gabrielle Objective : BP 134/82 Pulse [...] a living will and durable power of contract attorney for healthcare. We discussed telling garcia [...] gravis without (acute) exacerbation (G70.00) Atherosclerosis of [place] artery of both lower extremities with intermittent claudication (CMS/HCC) Morbid (severe) obesity due to excess calories (E66.01) Body mass index [BMI] 45.0-49.9, adult (Z68.42) Follow up in about 4 months (around 02/03/2024) for Routine F/U. No orders of the defined types were placed in this encounter. Electronically signed by Komal Schaffer MD on October 05, 2023 documented in this encounterAlvin J. Siteman Cancer [id number] Telephone encounter Note* Telephone Encounter - Komal Schaffer MD - 09/25/2023 10:15 AM EST Lab order. [facility] [id number] Miscellaneous Notes* Telephone Encounter - Komal Schaffer MD - 09/25/2023 10:15 AM EST Lab order. documented in this encounterAlvin J. Siteman Cancer [id number] History of Present illness Narrative* Baltazar Hoover, - 09/20/2023 11:40 AM EST Subjective Taurus [...] mouth once daily., Disp: , Rfl: omega 3-ewz-rqy-fish oil 360 mg-108 mg- 180 mg-1,200 mg [...] Scribe Attestation By signing my name below, I, Connie Hannon LPN , Scribe attest that this documentation [...] Morbid obesity with BMI of 45.0-49.9, adult (CMS/[facility]) documented in this encounterGood [facility] Work Phone: 1(470) 858-708501-31-2024 Instructions* Patient Instructions* Connie Morejon LPN - [...] Off amio,stop amio testing documented in this encounterGood Samaritan Hospital Work Phone: 1(756) 320-471210-21-2023 Discharge summary Author Silvestre Grover [facility] June 10, 2023 8:11am Note Date/Time June 10, 2023 8 :11am [facility] [address] [place] [address] Discharge Summary Signed Patient: Taurus Garcia MR#: [id number] : 1945 Acct:[id number] Age/Sex: 77 / M Adm Date: 3 Loc: Room: 4U0056-[address]: Silvestre Grover MD Copies to: MD Silvestre Gonsalves II, MD~ Providers Date of Discharge: 06/10/23 Discharging Provider: Silvestre Grover Primary Care Provider: Komal Schaffer Consults: 05/21/23 14:25 Consult to Adult Hospitalist [...] due to MG crisis. Patient presented to [facility] on 05/11/2023 with complaints of worseninggeneralized weakness over the course of several days. He was found to be mildlyhypoxic. Also complaining of urinary symptoms. Initially admitted to [facility] for observation however developed worsening respiratory status with increased secretions and inability to protect own airway and was subsequently intubated and transferred to [facility] for neurology services. Patient received a 5-day [...] Plan Discharge Plan Patient Disposition: Home Health [facility] Activity: Ambulate as Tolerated Diet: Regular Additional [...] home prior. Your Home Health agency is [facility] ( ). They will contact you [...] call and check back for vaccine availability ([phone]). Prescriptions: New nystatin [Nystop] 100,000 unit/gram Powder [...] - D.O.] - 08/24/23 11:10 am Komal Schaffer II, MD [Primary Care Provider] - (Will need to call for appt whenyou get home, left message office was closed) Jamel Packer DO [Courtesy/Consulting Physician] - 06/26/23 9:00 am (Neuro- Dr Saunders- already established ) Silvestre Grover MD [Active Staff] - (follow up with rehab physician as/if needed) Documented By: Silvestre Grover MD 06/10/23806 Signed By: <Electronically signed by Silvestre Grover MD> 06/10/23810 [facility] Work Phone: 1(108) 741-337210-19-2023 Progress note Author Jarret Garza [facility] June 08, 2023 7:01am Note Date/Time June 07, 2023 5 :18pm [facility] [address] [place] [address] Hospitalist Progress Note Signed Patient: Taurus Garcia MR#: [id number] : 1945 Acct:[id number] Age/Sex: 77 / M Adm Date: 3 Loc: Room: [address] [place] [address] Type: ADM IN Attending Dr: Silvestre Grover [...] mg 05/21/23 14:25 Bisacodyl 10 Mg Supp.Rect AR 05/20/24 14:24 DAILY PRN Constipation Docusate Sodium 100 mg 05/21/23 14:25 Docusate 100 Mg Capsule PO 05/20/24 14:24 BID PRN Constipation Docusate Sodium 283 mg 05/21/23 14:25 Docusate Enema 283 Mg/5 Ml Enema AR 05/20/24 14:24 DAILY PRN Constipation Fish Oil 1,000 mg 05/21/23 21:00 06/07/23 09:38 [place]-3/Fish Oil 1,000 Mg Capsule PO 05/20/24 20:59 [...] 05/31/24 08:59 Not Given DAILY DORI Pyridostigmine [place] 60 mg 05/21/23 18:00 06/07/23 17:02 Pyridostigmine [place] 60 Mg Tablet PO 05/20/24 17:59 60 [...] signed by Jarret Garza MD> 06/08/23 0701 [facility] Work Phone: 1([phone]) 877-386910-18-2023 Progress note Author Silvestre Grover [facility] June 07, 2023 3:10pm Note Date/Time June 07, 2023 1 :12pm [facility] [address] [place] [address] Physiatry(Rehab) Progress Note Signed Patient: Taurus Garcia MR#: [id number] : 1945 Acct:[id number] Age/Sex: 77 / M Adm Date: 3 Loc: Room: [address] [place] [address] Type: ADM IN Attending Dr: Silvestre Grover [...] due to MG crisis. Patient presented to [facility] on 05/11/2023 with complaints of worseninggeneralized weakness over the course of several days. He was found to be mildlyhypoxic. Also complaining of urinary symptoms. Initially admitted to [facility] for observation however developed worsening respiratory status with increased secretions and inability to protect own airway and was subsequently intubated and transferred to [facility] for neurology services. Patient received a 5-day [...] pleasant, cooperative. Reports no pain or discomfort. Smith catheter was removed this morning, no voidso [...] affect appropriate. Normal speech. Objective <Antonia Grier, SENSOR TECHNICIAN - Last Filed: 06/07/23 13:25> Labs 05/30/23 [...] mg 05/21/23 14:25 Bisacodyl 10 Mg Supp.Rect AR 05/20/24 14:24 DAILY PRN Constipation Docusate Sodium 100 mg 05/21/23 14:25 Docusate 100 Mg Capsule PO 05/20/24 14:24 BID PRN Constipation Docusate Sodium 283 mg 05/21/23 14:25 Docusate Enema 283 Mg/5 Ml Enema AR 09/30/24 14:24 DAILY PRN Constipation Fish Oil 1,000 mg 05/21/23 21:00 06/07/23 09:38 [place]-3/Fish Oil 1,000 Mg Capsule PO 05/20/24 20:59 [...] 05/31/24 08:59 Not Given DAILY DORI Pyridostigmine [place] 60 mg 05/21/23 18:00 06/07/23 09:39 Pyridostigmine [place] 60 Mg Tablet PO 05/20/24 17:59 60 [...] tab DAILY DORI Administration Assessment/Plan <Antonia Grier, ZACH - Last Filed: 06/07/23 13:25> Assessment/Plan (1) [...] secondary to myasthenic crisis. Initially admitted to [facility] later transferred to [facility] for neurology services. Had to be intubated [...] equipment to enhance the patient's a functional adventist Ensure adequate nutrition and hydration Sleep: No concerns. Pain: Continue current regimen Discharge planning: Hopefully home with his end of week/early next week. I spent greater than 15 minutes for services, including uoui-wn-umms encounter with the patient, discussion of the case, plan of care, and exam; and qvpjkmo-vq-dktu activities, such as reviewing pertinent commercial sales consultant documentation, recent therapy notes, laboratory and radiology studies, and discussion of case with care team including physician, nursing, leather case finisher, and therapists. More than 50 % of [...] Allied health note review, nursing note review, commercial sales consultant note review, discussion with nursing and case management, and more than 50% of my time was spent on counseling and coordination of care, time spent 25 minutes Patient was personally seen by me, Dr. Grover, on the day of encounter, reviewed the history and the relevant portions of the chart, including current orders, allied health and commercial sales consultant notes, labs/imaging and performed garcia elements of exam and I formulated the plan of care and facilitated the medical decision making. Documented By: Antonia Grier APRN 06/07/23 1 310 Signed By: <Electronically signed by ZACH Grier> 06/07/23 1325 <Electronically signed by Silvestre Grover MD> 06/07/[address] [facility] Work Phone: 1(103) 760-917210-17-2023 Progress note Author Silvestre Grover [facility] June 06, 2023 3:59pm Note Date/Time June 06, 2023 3 :59pm [facility] [address] [place] [address] Physiatry(Rehab) Progress Note Signed Patient: Taurus Garcia MR#: [id number] : 1945 Acct:[id number] Age/Sex: 77 / M Adm Date: 3 Loc: Room: [address] [place] [address] Type: ADM IN Attending Dr: Silvestre Grover MD Copies to: ~ Date of Service: 06/06/2023 Subjective Subjective Narrative: Mr. Garcia is a 77 year old male with past medical history of myasthenia gravis,hypertension, A-fib anticoagulated with Eliquis, PE, CKD, obstructive sleep apnea on BiPAP, who presents to acute inpatient rehab with functional impairments due to MG crisis. Patient presented to [facility] on 05/11/2023 with complaints of worseninggeneralized weakness over the course of several days. He was found to be mildlyhypoxic. Also complaining of urinary symptoms. Initially admitted to [facility] for observation however developed worsening respiratory status with increased secretions and inability to protect own airway and was subsequently intubated and transferred to [facility] for neurology services. Patient received a 5-day [...] plan is now for home on Monday. Smith catheter will be discontinued tomorrow for voiding [...] mg 05/21/23 14:25 Bisacodyl 10 Mg Supp.Rect AR 05/20/24 14:24 DAILY PRN Constipation Docusate Sodium 100 mg 05/21/23 14:25 Docusate 100 Mg Capsule PO 05/20/24 14:24 BID PRN Constipation Docusate Sodium 283 mg 05/21/23 14:25 Docusate Enema 283 Mg/5 Ml Enema AR 05/20/24 14:24 DAILY PRN Constipation Fish Oil 1,000 mg 05/21/23 21:00 06/06/23 10:08 [place]-3/Fish Oil 1,000 Mg Capsule PO 05/20/24 20:59 [...] Tablet PO 05/21/24 08:59 Not Given DAILY [facility] Nystatin 1 applic 05/22/23 09:00 06/06/23 14:39 [...] 05/31/24 08:59 Not Given DAILY DORI Pyridostigmine [place] 60 mg 05/21/23 18:00 06/06/23 14:39 Pyridostigmine [place] 60 Mg Tablet PO 05/20/24 17:59 60 [...] secondary to myasthenic crisis. Initially admitted to [facility] later transferred to [facility] for neurology services. Had to be intubated [...] equipment to enhance the patient's a functional adventist Ensure adequate nutrition and hydration Sleep: No concerns. Pain: Continue current regimen Discharge planning: Hopefully home with his end of week/early next week. Plan: I completed a substantive portion of this encounter, the medical decision making portion of this note in its entirety, including Allied health note review, nursing note review, commercial sales consultant note review, discussion with nursing and case management, and more than 50% of my time was spent on counseling and coordination of care, time spent 25 minutes Patient was personally seen by me, Dr. Grover, on the day of encounter, reviewed the history and the relevant portions of the chart, including current orders, allied health and commercial sales consultant notes, labs/imaging and performed garcia elements of exam and I formulated the plan of care and facilitated the medical decision making. Documented By: Silvestre Grover MD 06/06/23 1556 Signed By: <Electronically signed by Silvestre Grover MD> 06/06/[address] [facility] Work Phone: 1(645) 556-907710-17-2023 Hospital Discharge instructionsAmbulatory Orders* Initiate Home Health [...] home prior. Your Home Health agency is [facility] ( ). They will contact you [...] call and check back for vaccine availability ([phone]).[facility] Work Phone: [phone]) 135-929710-17-2023 Progress note Author Silvestre Grover [facility] June 06, 2023 11:30am Note Date/Time June 05, 2023 1 :16pm [facility] [address] [place] [address] Physiatry(Rehab) Progress Note Signed Patient: Taurus Garcia MR#: [id number] : 1945 Acct:[id number] Age/Sex: 77 / M Adm Date: 3 Loc: Room: 4H8952-0 Type: ADM IN Attending Dr: Silvestre Grover MD Copies to: ~ Date of Service: 06/05/2023 Subjective Subjective Narrative: Mr. Garcia is a 77 year old male with past medical history of myasthenia gravis,hypertension, A-fib anticoagulated with Eliquis, PE, CKD, obstructive sleep apnea on BiPAP, who presents to acute inpatient rehab with functional impairments due to MG crisis. Patient presented to [facility] on 05/11/2023 with complaints of worseninggeneralized weakness over the course of several days. He was found to be mildlyhypoxic. Also complaining of urinary symptoms. Initially admitted to [facility] for observation however developed worsening respiratory status with increased secretions and inability to protect own airway and was subsequently intubated and transferred to [facility] for neurology services. Patient received a 5-day [...] do well. No events over the weekend. Smith will come out in a few days. [...] mg 05/21/23 14:25 Bisacodyl 10 Mg Supp.Rect AR 05/20/24 14:24 DAILY PRN Constipation Docusate Sodium 100 mg 05/21/23 14:25 Docusate 100 Mg Capsule PO 05/20/24 14:24 BID PRN Constipation Docusate Sodium 283 mg 05/21/23 14:25 Docusate Enema 283 Mg/5 Ml Enema AR 05/20/24 14:24 DAILY PRN Constipation Fish Oil 1,000 mg 05/21/23 21:00 06/05/23 08:04 [place]-3/Fish Oil 1,000 Mg Capsule PO 05/20/24 20:59 [...] 08:59 1 packet DAILY DORI Administration Pyridostigmine [place] 60 mg 05/21/23 18:00 06/05/23 08:03 Pyridostigmine [place] 60 Mg Tablet PO 05/20/24 17:59 60 [...] secondary to myasthenic crisis. Initially admitted to [facility] later transferred to [facility] for neurology services. Had to be intubated [...] equipment to enhance the patient's a functional adventist Ensure adequate nutrition and hydration Sleep: No concerns. Pain: Continue current regimen Discharge planning: Hopefully home with his end of week/early next week. Plan: I completed a substantive portion of this encounter, the medical decision making portion of this note in its entirety, including Allied health note review, nursing note review, commercial sales consultant note review, discussion with nursing and case management, and more than 50% of my time was spent on counseling and coordination of care, time spent 25 minutes Patient was personally seen by me, Dr. Grover, on the day of encounter, reviewed the history and the relevant portions of the chart, including current orders, allied health and commercial sales consultant notes, labs/imaging and performed garcia elements of exam and I formulated the plan of care and facilitated the medical decision making. Documented By: Silvestre Grover MD 06/05/23 1316 Signed By: <Electronically signed by Silvestre Grover MD> 06/06/[address] [facility] Work Phone: 1(995) 345-344110-16-2023 Progress note Author Silvestre Grover [facility] June 05, 2023 11:41am Note Date/Time June 05, 2023 1 1:41am [facility] [address] [place] [address] Physiatry(Rehab) Progress Note Signed Patient: Taurus Garcia MR#: [id number] : 1945 Acct:[id number] Age/Sex: 77 / M Adm Date: 3 Loc: 5T Room: [address] [place] [address] Type: ADM IN Attending Dr: Silvestre Grover MD Copies to: ~ Date of Service: 06/02/2023 Subjective Subjective Narrative: Mr. Garcia is a 77 year old male with past medical history of myasthenia gravis,hypertension, A-fib anticoagulated with Eliquis, PE, CKD, obstructive sleep apnea on BiPAP, who presents to acute inpatient rehab with functional impairments due to MG crisis. Patient presented to [facility] on 05/11/2023 with complaints of worseninggeneralized weakness over the course of several days. He was found to be mildlyhypoxic. Also complaining of urinary symptoms. Initially admitted to [facility] for observation however developed worsening respiratory status with increased secretions and inability to protect own airway and was subsequently intubated and transferred to [facility] for neurology services. Patient received a 5-day [...] mg 05/21/23 14:25 Bisacodyl 10 Mg Supp.Rect AR 05/20/24 14:24 DAILY PRN Constipation Docusate Sodium 100 mg 05/21/23 14:25 Docusate 100 Mg Capsule PO 05/20/24 14:24 BID PRN Constipation Docusate Sodium 283 mg 05/21/23 14:25 Docusate Enema 283 Mg/5 Ml Enema AR 05/20/24 14:24 DAILY PRN Constipation Fish Oil 1,000 mg 05/21/23 21:00 06/05/23 08:04 [place]-3/Fish Oil 1,000 Mg Capsule PO 05/20/24 20:59 [...] 08:59 1 packet DAILY DORI Administration Pyridostigmine [place] 60 mg 05/21/23 18:00 06/05/23 08:03 Pyridostigmine [place] 60 Mg Tablet PO 05/20/24 17:59 60 [...] secondary to myasthenic crisis. Initially admitted to [facility] later transferred to [facility] for neurology services. Had to be intubated [...] equipment to enhance the patient's a functional adventist Ensure adequate nutrition and hydration Sleep: No concerns. Pain: Continue current regimen Discharge planning: Hopefully home with his end of next week. Plan: I completed a substantive portion of this encounter, the medical decision making portion of this note in its entirety, including Allied health note review, nursing note review, commercial sales consultant note review, discussion with nursing and case management, and more than 50% of my time was spent on counseling and coordination of care, time spent 25 minutes Patient was personally seen by me, Dr. Grover, on the day of encounter, reviewed the history and the relevant portions of the chart, including current orders, allied health and commercial sales consultant notes, labs/imaging and performed garcia elements of exam and I formulated the plan of care and facilitated the medical decision making. Documented By: Silvestre Grover MD 06/05/23 1139 Signed By: <Electronically signed by Silvestre Grover MD> 06/05/23 1141 [facility] Work Phone: 1([phone]) 777-841410-14-2023 Progress note Author Fidel Bennett [facility] June 03, 2023 3:02pm Note Date/Time June 03, 2023 3 :02pm [facility] [address] [place] [address] Physiatry(Rehab) Progress Note Signed Patient: Taurus Garcia MR#: [id number] : 1945 Acct:[id number] Age/Sex: 77 / M Adm Date: 3 Loc: Room: [address] [place] [address] Type: ADM IN Attending Dr: Silvestre Grover MD Copies to: ~ Date of Service: 06/03/2023 Subjective Subjective Narrative: Mr. Garcia is a 77 year old male with past medical history of myasthenia gravis,hypertension, A-fib anticoagulated with Eliquis, PE, CKD, obstructive sleep apnea on BiPAP, who presents to acute inpatient rehab with functional impairments due to MG crisis. Patient presented to [facility] on 05/11/2023 with complaints of worseninggeneralized weakness over the course of several days. He was found to be mildlyhypoxic. Also complaining of urinary symptoms. Initially admitted to [facility] for observation however developed worsening respiratory status with increased secretions and inability to protect own airway and was subsequently intubated and transferred to [facility] for neurology services. Patient received a 5-day [...] mg 05/21/23 14:25 Bisacodyl 10 Mg Supp.Rect AR 05/20/24 14:24 DAILY PRN Constipation Docusate Sodium 100 mg 05/21/23 14:25 Docusate 100 Mg Capsule PO 05/20/24 14:24 BID PRN Constipation Docusate Sodium 283 mg 05/21/23 14:25 Docusate Enema 283 Mg/5 Ml Enema AR 05/20/24 14:24 DAILY PRN Constipation Fish Oil 1,000 mg 05/21/23 21:00 06/03/23 09:45 [place]-3/Fish Oil 1,000 Mg Capsule PO 05/20/24 20:59 [...] 08:59 1 packet DAILY DORI Administration Pyridostigmine [place] 60 mg 05/21/23 18:00 06/03/23 14:48 Pyridostigmine [place] 60 Mg Tablet PO 05/20/24 17:59 60 [...] secondary to myasthenic crisis. Initially admitted to [facility] later transferred to [facility] for neurology services. Had to be intubated [...] equipment to enhance the patient's a functional adventist Ensure adequate nutrition and hydration Sleep: No concerns. Pain: Continue current regimen Discharge planning: Hopefully home with his end of next week. Plan: I completed a substantive portion of this encounter, the medical decision making portion of this note in its entirety, including Allied health note review, nursing note review, commercial sales consultant note review, discussion with nursing and case management, and more than 50% of my time was spent on counseling and coordination of care, time spent 25 minutes Patient was personally seen by me, Dr. Bennett, on the day of encounter, reviewed the history and the relevant portions of the chart, including current orders, allied health and commercial sales consultant notes, labs/imaging and performed garcia elements of exam and I formulated the plan of care and facilitated the medical decision making. Documented By: Fidel Bennett MD 1501 Signed By: <Electronically signed by Fidel Bennett MD> 06/03/[address] [facility] Work Phone: 1(688) 970-218010-13-2023 Progress note Author Silvestre Grover [facility] June 02, 2023 10:48am Note Date/Time June 01, 2023 1 :12pm [facility] [address] [place] [address] Physiatry(Rehab) Progress Note Signed Patient: Taurus Garcia MR#: [id number] : 1945 Acct:[id number] Age/Sex: 77 / M Adm Date: 3 Loc: Room: 7B7883-5 Type: ADM IN Attending Dr: Silvestre Grover [...] due to MG crisis. Patient presented to [facility] on 05/11/2023 with complaints of worseninggeneralized weakness over the course of several days. He was found to be mildlyhypoxic. Also complaining of urinary symptoms. Initially admitted to [facility] for observation however developed worsening respiratory status with increased secretions and inability to protect own airway and was subsequently intubated and transferred to [facility] for neurology services. Patient received a 5-day [...] more active in therapy. This morning he [id number]+42+90 feet with a rolling walker with wheelchair [...] affect appropriate. Normal speech. Objective <Antonia Grier, SENSOR TECHNICIAN - Last Filed: 06/01/23 13:12> Labs 05/30/23 [...] mg 05/21/23 14:25 Bisacodyl 10 Mg Supp.Rect AR 05/20/24 14:24 DAILY PRN Constipation Docusate Sodium 100 mg 05/21/23 14:25 Docusate 100 Mg Capsule PO 05/20/24 14:24 BID PRN Constipation Docusate Sodium 283 mg 05/21/23 14:25 Docusate Enema 283 Mg/5 Ml Enema AR 05/20/24 14:24 DAILY PRN Constipation Fish Oil 1,000 mg 05/21/23 21:00 06/01/23 10:05 [place]-3/Fish Oil 1,000 Mg Capsule PO 05/20/24 20:59 [...] 08:59 1 packet DAILY DORI Administration Pyridostigmine [place] 60 mg 05/21/23 18:00 06/01/23 10:05 Pyridostigmine [place] 60 Mg Tablet PO 05/20/24 17:59 60 [...] tab DAILY DORI Administration Assessment/Plan <Antonia Grier, SENSOR TECHNICIAN - Last Filed: 06/01/23 13:12> Assessment/Plan (1) [...] secondary to myasthenic crisis. Initially admitted to [facility] later transferred to [facility] for neurology services. Had to be intubated [...] equipment to enhance the patient's a functional adventist Ensure adequate nutrition and hydration Sleep: No concerns. Pain: Continue current regimen Discharge planning: Hopefully home with his end of next week. I spent greater than 15 minutes for services, including [id number] encounter with the patient, discussion of the case, plan of care, and exam; and [id number] activities, such as reviewing pertinent commercial sales consultant documentation, recent therapy notes, laboratory and radiology studies, and discussion of case with care team including physician, nursing, leather case finisher, and therapists. More than 50 % of [...] chart, including current orders, allied health and commercial sales consultant notes, labs/imaging and plan of care as above. Documented By: Antonia Grier APRN 06/01/23 1 304 Signed By: <Electronically signed by ZACH Grier> 06/01/23 1312 <Electronically signed by Silvestre Grover MD> 06/02/[address] [facility] Work Phone: 1([phone]) 652-685410-13-2023 Progress note Author Meerakaiden Javier [facility] June 02, 2023 8:21am Note Date/Time May 31, 2023 2 :26pm [facility] [address] [place] [address] Hospitalist Progress Note Signed Patient: Taurus Gacria MR#: [id number] : 1945 Acct:[id number] Age/Sex: 77 / M Adm Date: 3 Loc: Room: 6B7004-5 Type: ADM IN Attending Dr: Silvestre Grover [...] mg 05/21/23 14:25 Bisacodyl 10 Mg Supp.Rect AR 05/20/24 14:24 DAILY PRN Constipation Docusate Sodium 100 mg 05/21/23 14:25 Docusate 100 Mg Capsule PO 05/20/24 14:24 BID PRN Constipation Docusate Sodium 283 mg 05/21/23 14:25 Docusate Enema 283 Mg/5 Ml Enema AR 09/30/24 14:24 DAILY PRN Constipation Fish Oil 1,000 mg 05/21/23 21:00 05/31/23 07:49 [place]-3/Fish Oil 1,000 Mg Capsule PO 05/20/24 20:59 [...] Packet PO 05/31/24 08:59 DAILY DORI Pyridostigmine [place] 60 mg 05/21/23 18:00 05/31/23 14:13 Pyridostigmine [place] 60 Mg Tablet PO 05/20/24 17:59 60 [...] HLD? atorvastatin Documented By: NAZANIN Benitez 3 [id number] Signed By: <Electronically signed by ANP-VERÓNICA Javier> 06/02/23 0821 [facility] Work Phone: 1(759) 449-608910-11-2023 Progress note Author Silvestre Grover [facility] May 31, 2023 10:21am Note Date/Time May 31, 2023 1 0:17am [facility] [address] [place] [address] Physiatry(Rehab) Progress Note Signed Patient: Taurus Garcia MR#: [id number] : 1945 Acct:[id number] Age/Sex: 77 / M Adm Date: 3 Loc: 5T Room: 7K2374-6 Type: ADM IN Attending Dr: Silvestre Grover MD Copies to: ~ Date of Service: 05/31/2023 Subjective Subjective Narrative: Mr. Garcia is a 77 year old male with past medical history of myasthenia gravis,hypertension, A-fib anticoagulated with Eliquis, PE, CKD, obstructive sleep apnea on BiPAP, who presents to acute inpatient rehab with functional impairments due to MG crisis. Patient presented to [facility] on 05/11/2023 with complaints of worseninggeneralized weakness over the course of several days. He was found to be mildlyhypoxic. Also complaining of urinary symptoms. Initially admitted to [facility] for observation however developed worsening respiratory status with increased secretions and inability to protect own airway and was subsequently intubated and transferred to [facility] for neurology services. Patient received a 5-day [...] mg 05/21/23 14:25 Bisacodyl 10 Mg Supp.Rect AR 05/20/24 14:24 DAILY PRN Constipation Docusate Sodium 100 mg 05/21/23 14:25 Docusate 100 Mg Capsule PO 05/20/24 14:24 BID PRN Constipation Docusate Sodium 283 mg 05/21/23 14:25 Docusate Enema 283 Mg/5 Ml Enema AR 05/20/24 14:24 DAILY PRN Constipation Fish Oil 1,000 mg 05/21/23 21:00 05/31/23 07:49 [place]-3/Fish Oil 1,000 Mg Capsule PO 05/20/24 20:59 [...] 08:59 10 mg DAILY DORI Administration Pyridostigmine [place] 60 mg 05/21/23 18:00 05/31/23 07:50 Pyridostigmine [place] 60 Mg Tablet PO 05/20/24 17:59 60 [...] secondary to myasthenic crisis. Initially admitted to [facility] later transferred to [facility] for neurology services. Had to be intubated [...] equipment to enhance the patient's a functional adventist Ensure adequate nutrition and hydration Sleep: No concerns. Pain: Continue current regimen Discharge planning: Hopefully home with his end of next week. Plan: I completed a substantive portion of this encounter, the medical decision making portion of this note in its entirety, including Allied health note review, nursing note review, commercial sales consultant note review, discussion with nursing and case management, and more than 50% of my time was spent on counseling and coordination of care, time spent 25 minutes Patient was personally seen by me, Dr. Grover, on the day of encounter, reviewed the history and the relevant portions of the chart, including current orders, allied health and commercial sales consultant notes, labs/imaging and performed garcia elements of exam and I formulated the plan of care and facilitated the medical decision making. Documented By: Silvestre Grover MD 05/31/23 1017 Signed By: <Electronically signed by Silvestre Grover MD> 05/31/[address] [facility] Work Phone: 1([phone]) 593-776210-10-2023 Progress note Author Silvestre Grover [facility] May 30, 2023 12:01pm Note Date/Time May 30, 2023 1 2:01pm [facility] [address] [place] [address] Physiatry(Rehab) Progress Note Signed Patient: Taurus Garcia MR#: [id number] : 1945 Acct:[id number] Age/Sex: 77 / M Adm Date: 3 Loc: Room: [address] [place] [address] Type: ADM IN Attending Dr: Silvestre Grover MD Copies to: ~ Date of Service: 05/30/2023 Subjective Subjective Narrative: Mr. Garcia is a 77 year old male with past medical history of myasthenia gravis,hypertension, A-fib anticoagulated with Eliquis, PE, CKD, obstructive sleep apnea on BiPAP, who presents to acute inpatient rehab with functional impairments due to MG crisis. Patient presented to [facility] on 05/11/2023 with complaints of worseninggeneralized weakness over the course of several days. He was found to be mildlyhypoxic. Also complaining of urinary symptoms. Initially admitted to [facility] for observation however developed worsening respiratory status with increased secretions and inability to protect own airway and was subsequently intubated and transferred to [facility] for neurology services. Patient received a 5-day [...] % (Auto) 51.5 Lymph % (Auto) 29.7 Delta % (Auto) 14.8 Eos % (Auto) 3.8 Baso % (Auto) 0.2 Nucleat RBC Rel Count 0.2 Neut # (Auto) 2.9 Lymph # (Auto) 1.7 Delta # (Auto) 0.8 Eos # (Auto) 0.2 [...] mg 05/21/23 14:25 Bisacodyl 10 Mg Supp.Rect AR 05/20/24 14:24 DAILY PRN Constipation Docusate Sodium 100 mg 05/21/23 14:25 Docusate 100 Mg Capsule PO 05/20/24 14:24 BID PRN Constipation Docusate Sodium 283 mg 05/21/23 14:25 Docusate Enema 283 Mg/5 Ml Enema AR 05/20/24 14:24 DAILY PRN Constipation Fish Oil 1,000 mg 05/21/23 21:00 05/30/23 08:30 [place]-3/Fish Oil 1,000 Mg Capsule PO 05/20/24 20:59 [...] 08:59 10 mg DAILY DORI Administration Pyridostigmine [place] 60 mg 05/21/23 18:00 05/30/23 08:30 Pyridostigmine [place] 60 Mg Tablet PO 05/20/24 17:59 60 [...] secondary to myasthenic crisis. Initially admitted to [facility] later transferred to [facility] for neurology services. Had to be intubated [...] equipment to enhance the patient's a functional adventist Ensure adequate nutrition and hydration Sleep: No concerns. Pain: Continue current regimen Discharge planning: Hopefully home with his end of next week. Plan: I completed a substantive portion of this encounter, the medical decision making portion of this note in its entirety, including Allied health note review, nursing note review, commercial sales consultant note review, discussion with nursing and case management, and more than 50% of my time was spent on counseling and coordination of care, time spent 25 minutes Patient was personally seen by me, Dr. Grover, on the day of encounter, reviewed the history and the relevant portions of the chart, including current orders, allied health and commercial sales consultant notes, labs/imaging and performed garcia elements of exam and I formulated the plan of care and facilitated the medical decision making. Documented By: Silvestre Grover MD 05/30/23 1159 Signed By: <Electronically signed by Silvestre Grover MD> 05/30/[address] [facility] Work Phone: 1(891) 708-212910-09-2023 Progress note Author Silvestre Grover [facility] May 29, 2023 1:20pm Note Date/Time May 29, 2023 11 :42am [facility] [address] [place] [address] Physiatry(Rehab) Progress Note Signed Patient: Taurus Garcia MR#: [id number] : 1945 Acct:[id number] Age/Sex: 77 / M Adm Date: 3 Loc: Room: 3R8498-7 Type: ADM IN Attending Dr: Silvestre Grover [...] due to MG crisis. Patient presented to [facility] on 05/11/2023 with complaints of worseninggeneralized weakness over the course of several days. He was found to be mildlyhypoxic. Also complaining of urinary symptoms. Initially admitted to [facility] for observation however developed worsening respiratory status with increased secretions and inability to protect own airway and was subsequently intubated and transferred to [facility] for neurology services. Patient received a 5-day [...] noted below or in HPI Exam <Antonia ContrerasZACH castaneda - Last Filed: 05/29/23 11:42> Physical Exam [...] and affect appropriate. Normal speech. Objective <Antonia GrierZACH - Last Filed: 05/29/23 11:42> Labs 05/22/23 [...] mg 05/21/23 14:25 Bisacodyl 10 Mg Supp.Rect AR 05/20/24 14:24 DAILY PRN Constipation Docusate Sodium 100 mg 05/21/23 14:25 Docusate 100 Mg Capsule PO 05/20/24 14:24 BID PRN Constipation Docusate Sodium 283 mg 05/21/23 14:25 Docusate Enema 283 Mg/5 Ml Enema AR 05/20/24 14:24 DAILY PRN Constipation Fish Oil 1,000 mg 05/21/23 21:00 05/29/23 08:28 [place]-3/Fish Oil 1,000 Mg Capsule PO 05/20/24 20:59 [...] 08:59 10 mg DAILY DORI Administration Pyridostigmine [place] 60 mg 05/21/23 18:00 05/29/23 08:29 Pyridostigmine [place] 60 Mg Tablet PO 05/20/24 17:59 60 mg QID DORI Administration Sennosides 2 tab 05/22/23 12:00 Sennosides 8.6 Mg Tablet PO 05/21/24 11:59 DAILY@12 PRN If no BM in 2 days Triamterene/Hydrochlorothiazide 1 tab 05/22/23 09:00 05/29/23 08:28 Triamterene/Hctz 37.5-25mg 1 Tab Tablet PO 05/21/24 08:59 1 tab DAILY DORI Administration Assessment/Plan <Antonia Grier, SENSOR TECHNICIAN - Last Filed: 05/29/23 11:42> Assessment/Plan (1) [...] secondary to myasthenic crisis. Initially admitted to [facility] later transferred to [facility] for neurology services. Had to be intubated [...] equipment to enhance the patient's a functional adventist Ensure adequate nutrition and hydration Sleep: No concerns. Pain: Continue current regimen Discharge planning: Hopefully home with his in 3 weeks. I spent greater than 15 minutes for services, including pybo-da-lnyd encounter with the patient, discussion of the case, plan of care, and exam; and whxmxxt-me-mhfx activities, such as reviewing pertinent commercial sales consultant documentation, recent therapy notes, laboratory and radiology studies, and discussion of case with care team including physician, nursing, leather case finisher, and therapists. More than 50 % of [...] Allied health note review, nursing note review, commercial sales consultant note review, discussion with nursing and case management, and more than 50% of my time was spent on counseling and coordination of care, time spent 25 minutes Patient was personally seen by me, Dr. Grover, on the day of encounter, reviewed the history and the relevant portions of the chart, including current orders, allied health and commercial sales consultant notes, labs/imaging and performed garcia elements of exam and I formulated the plan of care and facilitated the medical decision making. Discontinue smith as mobility improves. Making good functional progress. Documented By: Antonia Grier APRN 05/29/23 1 133 Signed By: <Electronically signed by ZACH Grier> 05/29/23 1142 <Electronically signed by Silvestre Grover MD> 05/29/[address] [facility] Work Phone: 1(221) 299-675110-06-2023 Progress note Author Silvestre Grover [facility] May 26, 2023 3:42pm Note Date/Time May 25, 2023 11 :38am [facility] [address] [place] [address] Physiatry(Rehab) Progress Note Signed Patient: Taurus Garcia MR#: [id number] : 1945 Acct:[id number] Age/Sex: 77 / M Adm Date: 3 Loc: Room: 3S9823-2 Type: ADM IN Attending Dr: Silvestre Grover [...] due to MG crisis. Patient presented to [facility] on 05/11/2023 with complaints of worseninggeneralized weakness over the course of several days. He was found to be mildlyhypoxic. Also complaining of urinary symptoms. Initially admitted to [facility] for observation however developed worsening respiratory status with increased secretions and inability to protect own airway and was subsequently intubated and transferred to [facility] for neurology services. Patient received a 5-day [...] mg 05/21/23 14:25 Bisacodyl 10 Mg Supp.Rect AR 05/20/24 14:24 DAILY PRN Constipation Docusate Sodium 100 mg 05/21/23 14:25 Docusate 100 Mg Capsule PO 05/20/24 14:24 BID PRN Constipation Docusate Sodium 283 mg 05/21/23 14:25 Docusate Enema 283 Mg/5 Ml Enema AR 05/20/24 14:24 DAILY PRN Constipation Fish Oil 1,000 mg 05/21/23 21:00 05/25/23 09:34 [place]-3/Fish Oil 1,000 Mg Capsule PO 05/20/24 20:59 [...] 08:59 10 mg DAILY DORI Administration Pyridostigmine [place] 60 mg 05/21/23 18:00 05/25/23 09:27 Pyridostigmine [place] 60 Mg Tablet PO 05/20/24 17:59 60 mg QID DORI Administration Sennosides 2 tab 05/22/23 12:00 Sennosides 8.6 Mg Tablet PO 05/21/24 11:59 DAILY@12 PRN If no BM in 2 days Triamterene/Hydrochlorothiazide 1 tab 05/22/23 09:00 05/25/23 09:27 Triamterene/Hctz 37.5-25mg 1 Tab Tablet PO 05/21/24 08:59 1 tab DAILY DORI Administration Assessment/Plan <Antonia Grier, SENSOR TECHNICIAN - Last Filed: 05/25/23 11:50> Assessment/Plan (1) [...] secondary to myasthenic crisis. Initially admitted to [facility] later transferred to [facility] for neurology services. Had to be intubated for airway protection. Successfully extubated on 05/15 and has been tolerating well. * GI symptoms seem to be improving with Imodium. * Feels, is improving functionally. Able to do a little more in therapy although still dependent for most activities. * Okay to maintain a Smith until mobility improves. * Continue to Mauricio [...] equipment to enhance the patient's a functional adventist Ensure adequate nutrition and hydration Sleep: No concerns. Pain: Continue current regimen Discharge planning: Hopefully home with his in 3 weeks. I spent greater than 15 minutes for services, including tyiy-ui-wako encounter with the patient, discussion of the case, plan of care, and exam; and aqqesop-ym-sygv activities, such as reviewing pertinent commercial sales consultant documentation, recent therapy notes, laboratory and radiology studies, and discussion of case with care team including physician, nursing, leather case finisher, and therapists. More than 50 % of [...] Allied health note review, nursing note review, commercial sales consultant note review, discussion with nursing and case management, and more than 50% of my time was spent on counseling and coordination of care, time spent 25 minutes Patient was personally seen by me, Dr. Grover, on the day of encounter, reviewed the history and the relevant portions of the chart, including current orders, allied health and commercial sales consultant notes, labs/imaging and performed garcia elements of exam and I formulated the plan of care and facilitated the medical decision making. Documented By: Antonia Grier APRN 05/25/23 1 136 Signed By: <Electronically signed by ZACH Grier> 05/25/23 1150 <Electronically signed by Silvestre Grover MD> 05/26/[address] [facility] Work Phone: 1(655) 571-889610-05-2023 Progress note Author Silvestre Grover [facility] May 25, 2023 8:34am Note Date/Time May 24, 2023 1: 11pm [facility] [address] [place] [address] Physiatry(Rehab) Progress Note Signed Patient: Taurus Garcia MR#: [id number] : 1945 Acct:[id number] Age/Sex: 77 / M Adm Date: 3 Loc: Room: 3Y8848-9 Type: ADM IN Attending Dr: Silvestre Grover MD Copies to: ~ Date of Service: 05/24/2023 Subjective Subjective Narrative: Mr. Garcia is a 77 year old male with past medical history of myasthenia gravis,hypertension, A-fib anticoagulated with Eliquis, PE, CKD, obstructive sleep apnea on BiPAP, who presents to acute inpatient rehab with functional impairments due to MG crisis. Patient presented to [facility] on 05/11/2023 with complaints of worseninggeneralized weakness over the course of several days. He was found to be mildlyhypoxic. Also complaining of urinary symptoms. Initially admitted to [facility] for observation however developed worsening respiratory status with increased secretions and inability to protect own airway and was subsequently intubated and transferred to [facility] for neurology services. Patient received a 5-day [...] improving Has developed diarrhea, started on imodium. Smith placed for urinary incontinence. Review of Systems [...] mg 05/21/23 14:25 Bisacodyl 10 Mg Supp.Rect AR 05/20/24 14:24 DAILY PRN Constipation Docusate Sodium 100 mg 05/21/23 14:25 Docusate 100 Mg Capsule PO 05/20/24 14:24 BID PRN Constipation Docusate Sodium 283 mg 05/21/23 14:25 Docusate Enema 283 Mg/5 Ml Enema AR 05/20/24 14:24 DAILY PRN Constipation Fish Oil 1,000 mg 05/21/23 21:00 05/24/23 08:33 [place]-3/Fish Oil 1,000 Mg Capsule PO 05/20/24 20:59 [...] 08:59 10 mg DAILY DORI Administration Pyridostigmine [place] 60 mg 05/21/23 18:00 05/24/23 08:33 Pyridostigmine [place] 60 Mg Tablet PO 05/20/24 17:59 60 [...] secondary to myasthenic crisis. Initially admitted to [facility] later transferred to [facility] for neurology services. Had to be intubated for airway protection. Successfully extubated on 05/15 and has been tolerating well. * Exam is slowly improving, he feels stronger each day, still max-dependent with therapy but this should improve * Weight trending down/stable * Place smith * If diarrhea persists check c.diff * [...] equipment to enhance the patient's a functional adventist Ensure adequate nutrition and hydration Sleep: No concerns. Pain: Continue current regimen Discharge planning: Hopefully home with his in 3 weeks. Plan: I completed a substantive portion of this encounter, the medical decision making portion of this note in its entirety, including Allied health note review, nursing note review, commercial sales consultant note review, discussion with nursing and case management, and more than 50% of my time was spent on counseling and coordination of care, time spent 20 minutes Patient was personally seen by me, Dr. Grover, on the day of encounter, reviewed the history and the relevant portions of the chart, including current orders, allied health and commercial sales consultant notes, labs/imaging and performed garcia elements of exam and I formulated the plan of care and facilitated the medical decision making. Documented By: Silvestre Grover MD 05/24/23 1310 Signed By: <Electronically signed by Silvestre Grover MD> 05/25/23 4434 [facility] Work Phone: 1(424) 622-839110-03-2023 Consult note Author Jarret Garza [facility] May 23, 2023 2:28pm Note Date/Time May 22, 2023 4: 54pm [facility] [address] [place] [address] Hospitalist Consult Note Signed Patient: Taurus Garcia MR#: [id number] : 1945 Acct:[id number] Age/Sex: 77 / M Adm Date: 3 Loc: 5T Room: [address] [place] [address] Type: ADM IN Attending Dr: Silvestre Grover MD Copies to: MD Silvestre Gonsalves II, MD Linda Obika, APRN Obaydah M Daromar, MD~ HPI DATE OF CONSULTATION: 05/22/23 REQUESTING PROVIDER: Silvestre Grover Consult Narrative Reason for Consult: HTN, HLD, myasthenia gravis, CKD, PE HPI: Patient is a 77M with a PMHx of HTN, HLD, Myasthenia Gravis (Dx 2016), CKD, PE(On Eliquis) who was admitted to [facility] 05/09 for generalized weakness and was also found to be mildly hypoxic. He was intubated there then transferred to [facility] for evaluation and treatment of suspected acute [...] negative unless noted in the HPI below [facility] Source: Old Records Reviewed Medical History Acute [...] mg PO DAILY 12/27/17 [History Confirmed 05/21/23] wyzkiqvd-nfc-vdoia acid 0.4 mg-lycopene 300 mcg-lutein 250 mcg [...] mg 05/21/23 14:25 Bisacodyl 10 Mg Supp.Rect AR 05/20/24 14:24 DAILY PRN Constipation Docusate Sodium 100 mg 05/21/23 14:25 Docusate 100 Mg Capsule PO 05/20/24 14:24 BID PRN Constipation Docusate Sodium 283 mg 05/21/23 14:25 Docusate Enema 283 Mg/5 Ml Enema AR 05/20/24 14:24 DAILY PRN Constipation Fish Oil 1,000 mg 05/21/23 21:00 05/22/23 08:58 [place]-3/Fish Oil 1,000 Mg Capsule PO 05/20/24 20:59 [...] 08:59 10 mg DAILY DORI Administration Pyridostigmine [place] 60 mg 05/21/23 18:00 05/22/23 14:40 Pyridostigmine [place] 60 Mg Tablet PO 05/20/24 17:59 60 [...] Creatinine Clear 100.28, Sodium 141, Potassium 3.7, [id number], Carbon Dioxide 30.8, Anion Gap 7.9, BUN [...] % (Auto) 63.1, Lymph % (Auto) 20.4, Delta % (Auto) 10.8, Eos % (Auto) 5.4, Baso % (Auto) 0.3, Nucleat RBC Rel Count 0.1, Neut # (Auto) 4.6, Lymph # (Auto) 1.5, Delta # (Auto) 0.8, Eos # (Auto) 0.4, [...] <Electronically signed by Jarret Garza MD> 05/23/23 9777 [facility] Work Phone: 1(128) 134-458310-02-2023 History and physical note Author Silvestre Grover [facility] May 22, 2023 3:50pm Note Date/Time May 22, 2023 10 :42am [facility] [address] [place] [address] Physiatry (Rehab) H&P Signed Patient: Taurus Garcia MR#: [id number] : 1945 Acct:[id number] Age/Sex: 77 / M Adm Date: 3 Loc: Room: [address] [place] [address] Type: ADM IN Attending Dr: Silvestre Grover [...] due to MG crisis. Patient presented to [facility] on 05/11/2023 with complaints of worseninggeneralized weakness over the course of several days. He was found to be mildlyhypoxic. Also complaining of urinary symptoms. Initially admitted to [facility] for observation however developed worsening respiratory status with increased secretions and inability to protect own airway and was subsequently intubated and transferred to [facility] for neurology services. Patient received a 5-day [...] mg PO DAILY 12/27/17 [History Confirmed 05/21/23] wiawjdvs-xgt-bwxil acid 0.4 mg-lycopene 300 mcg-lutein 250 mcg [...] Bisacodyl (Bisacodyl 10 Mg Supp.Rect) 10 mg AR DAILY PRN PRN Reason: Constipation Stop: 05/20/24 14:24 Docusate Sodium (Docusate 100 Mg Capsule) 100 mg PO BID PRN PRN Reason: Constipation Stop: 05/20/24 14:24 Docusate Sodium (Docusate Enema 283 Mg/5 Ml Enema) 283 mg AR DAILY PRN PRN Reason: Constipation Stop: 05/20/24 14:24 Fish Oil ([place]-3/Fish Oil 1,000 Mg Capsule) 1,000 mg PO [...] Admin: 05/22/23 08:58 Dose: 10 mg Pyridostigmine [place] (Pyridostigmine [place] 60 Mg Tablet) 60 mg PO QID [...] % (Auto) 63.1 Lymph % (Auto) 20.4 Delta % (Auto) 10.8 Eos % (Auto) 5.4 Baso % (Auto) 0.3 Nucleat RBC Rel Count 0.1 Neut # (Auto) 4.6 Lymph # (Auto) 1.5 Delta # (Auto) 0.8 Eos # (Auto) 0.4 [...] mobility Anticipated interventions: Physician management, PT, OT, BOAT HAND, , Dietitian, RehabNursing, Case management 2. Therapy Functional Outcome/Goal: Anticipate standby assist transfers Anticipated interventions: Physician management, PT, OT, BOAT HAND, Case management, Dietitian, Rehab Nursing 3. Therapy Functional Outcome/Goal: Anticipate min assist ambulation Anticipated interventions: Physician management, PT, OT, BOAT HAND Case management, Dietitian, Rehab Nursing 4.Therapy Functional Outcome/Goal: Anticipate min assist self-care Anticipated interventions: Physician management, PT, OT, BOAT HAND, Case management, Dietitian, Rehab Nursing 5.Therapy Functional Outcome/Goal: Anticipate min assist swallowing. Anticipated interventions: Physician management, PT, OT, BOAT HAND, Case management, Dietitian, Rehab Nursing Required Therapy [...] additional therapy on as needed basis. Comments: BOAT HAND to evaluate and treat patient?s cognition, language and communication skills, assess swallow function. Other: Dietitian, Rehab nursing, Wound, P&O, Neuropsychology as needed RATIONALE FOR IRF ADMISSION: Patient has both medical and functional complexities that require 24 hour daily monitoring and intervention from [employer] as well as other consulting physicians including internal medicine as well as 24 hour daily digital marketing analyst nursing - for medical safe / optimal management. Patient requires interdisciplinary therapy team rehabilitation care including OT, PT, BOAT HAND, SW, Psychology, Rehab Nursing, requires and can tolerate at least 3hours of daily OT and PT therapy at least 5 days weekly. The following medical conditions significantly impact the rehabilitation process and are being addressed daily and can not be managed at home or in a lesser intense medical setting: Refer to above problem oriented plan of care Assessment/Plan <Antonia Grier, SENSOR TECHNICIAN - Last Filed: 05/22/23 11:48> (1) Atrial [...] impairments secondaryto myasthenic crisis. Initially admitted to [facility] later transferred[facility] for neurology services. Had to be intubated [...] equipment to enhance the patient's a functional adventist Ensure adequate nutrition and hydration Sleep: No concerns. Pain: Continue current regimen Discharge planning: Hopefully home with his in 10 to 14 days. I spent greater than 45 minutes for services, including rovm-ot-xftq encounter with the patient, discussion of the case, plan of care, and exam; and njmrkau-pq-jzki activities, such as reviewing pertinent commercial sales consultant documentation, recent therapy notes, laboratory and radiology studies, and discussion of case with care team including physician, nursing, leather case finisher, and therapists. More than 50 % of [...] Allied health note review, nursing note review, commercial sales consultant note review, discussion with nursing and case management, and more than 50% of my time was spent on counseling and coordination of care, time spent 70 minutes Patient was personally seen by me, Dr. Grover, on the day of encounter, reviewed the history and the relevant portions of the chart, including current orders, allied health and commercial sales consultant notes, labs/imaging and performed garcia elements of exam and I formulated the plan of care and facilitated the medical decision making. Documented By: Antonia Grier APRN 05/22/23 1 040 Signed By: <Electronically signed by ZACH Grier> 05/22/23 1148 <Electronically signed by Silvestre Grover MD> 05/22/[address] [facility] Work Phone: 1(190) 332-977809-30-2023 Progress note Author Suraj Razo [facility] May 20, 2023 8:14am Note Date/Time May 20, 2023 8:10am [facility] [address] [place] [address] Hospitalist Progress Note Signed Patient: Taurus Garcia MR#: [id number] : 1945 Acct:[id number] Age/Sex: 77 / M Adm Date: 3 Loc: Room: [address] [place] [address] Type: ADM IN Attending Dr: Suraj Razo MD Copies to: ~ Date of Service: 05/20/2023 Subjective Subjective Narrative: Assessment And Plan 77M with PMH of HTN, HLD, Myasthenia Gravis (Dx 2016), CKD, PE(On Eliquis) who was admitted to [facility] 05/09 for generalized weakness. He was [...] 08:59 10 mg DAILY DORI Administration Pyridostigmine [place] 60 mg 05/18/23 14:00 05/19/23 21:30 Pyridostigmine [place] 60 Mg Tablet PO 05/17/24 13:59 60 mg QID DORI Administration A&P - Hospitalist Assessment/Plan (1) Acute exacerbation of myasthenia gravis: (2) Acute respiratory failure with hypoxia: (3) CKD (chronic kidney disease) stage 3, GFR 30-59 ml/min: Plan . Documented By: Suraj Razo MD 05/20/23 0809 Signed By: <Electronically signed by Suraj Razo MD> 05/20/23 0814 [facility] Work Phone: 1(574) 541-727809-29-2023 Progress note Author Suraj Razo [facility] May 19, 2023 1:42pm Note Date/Time May 19, 2023 1:42pm [facility] [address] [place] [address] Hospitalist Progress Note Signed Patient: Taurus Garcia MR#: [id number] : 1945 Acct:[id number] Age/Sex: 77 / M Adm Date: 3 Loc: Room: [address] [place] [address] Type: ADM IN Attending Dr: Suraj Razo MD Copies to: ~ Date of Service: 05/19/2023 Subjective Subjective Narrative: Assessment And Plan 77M with PMH of HTN, HLD, Myasthenia Gravis (Dx 2016), CKD, PE(On Eliquis) who was admitted to [facility] 05/09 for generalized weakness. He was [...] 08:59 10 mg DAILY DORI Administration Pyridostigmine [place] 60 mg 05/18/23 14:00 05/19/23 08:28 Pyridostigmine [place] 60 Mg Tablet PO 05/17/24 13:59 60 mg QID DORI Administration A&P - Hospitalist Assessment/Plan (1) Acute exacerbation of myasthenia gravis: (2) Acute respiratory failure with hypoxia: (3) CKD (chronic kidney disease) stage 3, GFR 30-59 ml/min: Plan . Documented By: Suraj Razo MD 05/19/231339 Signed By: <Electronically signed by Suraj Razo MD> 05/19/[address] [facility] Work Phone: 1(706) 999-981809-29-2023 Progress note Author Stanley Burt [facility] May 19, 2023 11:15am Note Date/Time May 19, 2023 8:43am [facility] [address] [place] [address] Pulmonology Progress Note Signed Patient: Taurus Garcia MR#: [id number] : 1945 Acct:[id number] Age/Sex: 77 / M Adm Date: 3 Loc: Room: [address] [place] [address] Type: ADM IN Attending Dr: Suraj Razo [...] 05/16/23 10:32 Urine Culture - Final Urine, Smith No Growth 2 Days Assessment/Plan Assessment/Plan (1) [...] <Electronically signed by MD Stanley Burt> 05/19/23 [facility] Work Phone: 1(971) 559-145609-29-2023 Progress note Author Silvestre Grover [facility] May 19, 2023 10:51am Note Date/Time May 19, 2023 10:03am [facility] [address] [place] [address] Physiatry(Rehab) Progress Note Signed Patient: Taurus Garcia MR#: [id number] : 1945 Acct:[id number] Age/Sex: 77 / M Adm Date: 3 Loc: Room: [address] [place] [address] Type: ADM IN Attending Dr: Suraj Razo MD Copies to: ~ Date of Service: 05/19/2023 Subjective Subjective Narrative: Mr. Garcia is a 77 year old male hospital day #6 for myasthenic crisis, intubated on admission, just extubated 9/25, being evaluated for possible IRF placement when ready. His reports that he is premorbidly independent. She denies him ever havinga myasthenic crisis like this before. She states he was in his usual state of health until he began to feel generally weak, he presented to [facility] and was subsequently intubated and transferred [...] % (Auto) 53.7 Lymph % (Auto) 22.1 Delta % (Auto) 10.0 Eos % (Auto) 13.8 Baso % (Auto) 0.4 Nucleat RBC Rel Count 0.2 Neut # (Auto) 2.7 Lymph # (Auto) 1.1 Delta # (Auto) 0.5 Eos # (Auto) 0.7 [...] 05/19/23 08:28 Lisinopril 20 Mg Tablet PO 09/20/24 11:44 20 mg DAILY DORI Administration Loratadine [...] 08:59 10 mg DAILY DORI Administration Pyridostigmine [place] 60 mg 05/18/23 14:00 05/19/23 08:28 Pyridostigmine [place] 60 Mg Tablet PO 05/17/24 13:59 60 [...] for myasthenic crisis, intubated on admission to [facility], just extubated 05/15, being evaluated for possible [...] Allied health note review, nursing note review, commercial sales consultant note review, discussion with nursing and case management, and more than 50% of my time was spent on counseling and coordination of care, time spent 30 minutes Patient was personally seen by me, Dr. Grover, on the day of encounter, reviewed the history and the relevant portions of the chart, including current orders, allied health and commercial sales consultant notes, labs/imaging and performed garcia elements of exam and I formulated the plan of care and facilitated the medical decision making. Documented By: Silvestre Grover MD 05/19/23 1003 Signed By: <Electronically signed by Silvestre Grover MD> 05/19/23 1051 [facility] Work Phone: 1([phone]) 100-393309-28-2023 Consult note Author Pat Hoover [facility] May 18, 2023 6:00pm Note Date/Time May 18, 2023 6:00pm [facility] [address] [place] [address] Cardiology Consult Note Signed Patient: Taurus Garcia MR#: [id number] : 1945 Acct:[id number] Age/Sex: 77 / M Adm Date: 3 Loc: Room: [address] [place] [address] Type: ADM IN Attending Dr: Suraj Razo [...] activity Respiratory Respiratory: Reports as per HPI [facility] Medical History Acute exacerbation of myasthenia gravis [...] mg PO DAILY 12/27/17 [History Confirmed 05/10/23] ebuorhln-gtn-nnlxg acid 0.4 mg-lycopene 300 mcg-lutein 250 mcg [...] x10E3/uL Lymph # (Auto) 1.0 (1.00-4.8) x10E3/uL Delta # (Auto) 0.4 (0.0-0.8) x10E3/uL Eos # (Auto) 0.8 H (0.0-0.45) x10E3/uL Baso # (Auto) 0.0 (0.0-0.2) x10E3/uL Intake and Output 05/18/23 05/18/23 05/18/23 07:59 15:59 23:59 Intake Total 60 / 710 650 / 710 Output Total 2074 Balance -415 / -1365 -950 / -1365 Intake: IV 250 / 250 Amiodarone 450 mg In Dextrose 5 250 / 250 % in Water Benson 241 ml @ 0.5 MG/MIN 16.667 mls/hr IV .Q15H [facility] Rx#:[id number] Oral 60 / 460 400 / 460 Output: Urine Amount (Catheter) 2074 Urethral (Smith) 2074 Other: # Incontinent Bowel Movements 2 [...] signed by Pat Hoover DO> 05/18/23 1800 [facility] Work Phone: 1(425) 396-427709-28-2023 Progress note Author Stanley Burt [facility] May 18, 2023 4:48pm Note Date/Time May 18, 2023 8:38am [facility] [address] [place] [address] Pulmonology Progress Note Signed Patient: Taurus Garcia MR#: [id number] : 1945 Acct:[id number] Age/Sex: 77 / M Adm Date: 3 Loc: Room: [address] [place] [address] Type: ADM IN Attending Dr: Suraj Razo [...] 05/16/23 10:32 Urine Culture - Preliminary Urine, Smith No Growth 1 Day 05/16/23 10:04 Blood [...] signed by MD Stanley Burt> 05/18/[address] [facility] Work Phone: 1(635) 327-903709-28-2023 Progress note Author Suraj Razo [facility] May 18, 2023 12:58pm Note Date/Time May 18, 2023 12:55pm [facility] [address] [place] [address] Hospitalist Progress Note Signed Patient: Taurus Garcia MR#: [id number] : 1945 Acct:[id number] Age/Sex: 77 / M Adm Date: 3 Loc: Room: [address] [place] [address] Type: ADM IN Attending Dr: Suraj Razo MD Copies to: ~ Date of Service: 05/18/2023 Subjective Subjective Narrative: Assessment And Plan 77M with PMH of HTN, HLD, Myasthenia Gravis (Dx 2016), CKD, PE(On Eliquis) who was admitted to [facility] 05/09 for generalized weakness. He was [...] No Growth 2 Days 05/16/23 10:32 Urine, Smith Urine Culture - Final No Growth 2 [...] 08:59 10 mg DAILY DORI Administration Pyridostigmine [place] 60 mg 05/18/23 14:00 Pyridostigmine [place] 60 Mg Tablet PO 05/17/24 13:59 QID DORI A&P - Hospitalist Assessment/Plan (1) Acute exacerbation of myasthenia gravis: (2) Acute respiratory failure with hypoxia: (3) CKD (chronic kidney disease) stage 3, GFR 30-59 ml/min: Plan . Documented By: Suraj Razo MD 05/18/23 1253 Signed By: <Electronically signed by Suraj Razo MD> 05/18/[address] [facility] Work Phone: 1(363) 349-823709-27-2023 Progress note Author Jamel Packer [facility] May 17, 2023 2:05pm Note Date/Time May 17, 2023 2:05pm [facility] [address] [place], [place] [id number] Neurology Progress Note Signed Patient: Taurus Garcia MR#: [id number] : 1945 Acct:[id number] Age/Sex: 77 / M Adm Date: 3 Loc: Room: [address] [place] [address] Type: ADM IN Attending Dr: Suraj Razo [...] Therapy Recommendations: OT Recommendations OT Recommended Discharge [facility] Location OT Recommended Services at Physical Therapy,Occupational Therapy,Speech Discharge Therapy,13/03 Supervision PT Recommendations PT Recommended Discharge [facility] Location PT Recommended Services at Physical Therapy,Occupational Therapy Discharge ST Recommendations Level of Supervision 1:1 Feeding Supervision Liquid Consistency [place]-Thick Liquids Recommendation Solid Consistency Pureed Solids Recommendations [...] Acute Documented By: Jamel Packer DO 05/17/23 140 Signed By: <Electronically signed by Jamel Packer DO> 05/17/23 1405 [facility] Work Phone: 1([phone] 127-381909-27-2023 Progress note Author Stanley Burt [facility] May 17, 2023 12:50pm Note Date/Time May 17, 2023 12:50pm [facility] [address] [place] [address] Pulmonology Progress Note Signed Patient: Taurus Garcia MR#: [id number] : 1945 Acct:[id number] Age/Sex: 77 / M Adm Date: 3 Loc: Room: [address] [place] [address] Type: ADM IN Attending Dr: Suraj Razo [...] GI Palpation: soft and no hepatosplenomegaly Other: smith catheter in place Skin General: no rashes [...] signed by MD Stanley Burt> 05/17/23 1250 [facility] Work Phone: 1([phone]) 132-211909-27-2023 Progress note Author Suraj Razo [facility] May 17, 2023 11:57am Note Date/Time May 17, 2023 11:48am [facility] [address] [place] [address] Hospitalist Progress Note Signed Patient: Taurus Garcia MR#: [id number] : 1945 Acct:[id number] Age/Sex: 77 / M Adm Date: 3 Loc: Room: [address] [place] [address] Type: ADM IN Attending Dr: Suraj Razo MD Copies to: ~ Date of Service: 05/17/2023 Subjective Subjective Narrative: Assessment And Plan 77M with PMH of HTN, HLD, Myasthenia Gravis (Dx 2016), CKD, PE(On Eliquis) who was admitted to [facility] 05/09 for generalized weakness. He was [...] 04:19 Microbiology Results Microbiology 05/16/23 10:32 Urine, Smith Urine Culture - Preliminary No Growth 1 [...] 08:59 10 mg DAILY DORI Administration Pyridostigmine [place] 60 mg 05/15/23 22:00 05/17/23 08:52 Pyridostigmine [place] 60 Mg Tablet NG-TUBE 05/14/24 21:59 60 mg TID DORI Administration A&P - Hospitalist Assessment/Plan (1) Acute exacerbation of myasthenia gravis: (2) Acute respiratory failure with hypoxia: (3) CKD (chronic kidney disease) stage 3, GFR 30-59 ml/min: Plan . Documented By: Suraj Razo MD 05/17/23 1146 Signed By: <Electronically signed by Suraj Razo MD> 05/17/23 1157 [facility] Work Phone: 1([phone]) [phone] Progress note Author Silvestre Grover [facility] May 17, 2023 10:48am Note Date/Time May 17, 2023 10:48am [facility] [address] [place] [address] Physiatry(Rehab) Progress Note Signed Patient: Taurus Garcia MR#: [id number] : 1945 Acct:[id number] Age/Sex: 77 / M Adm Date: 3 Loc: Room: [address] [place] [address] Type: ADM IN Attending Dr: Suraj Razo [...] to feel generally weak, he presented to [facility] and was subsequently intubated and transferred [...] MPV Neut % (Auto) Lymph % (Auto) Delta % (Auto) Eos % (Auto) Baso % (Auto) Nucleat RBC Rel Count Neut # (Auto) Lymph # (Auto) Delta # (Auto) Eos # (Auto) Baso # [...] Color Urine Appearance Urine pH Ur Specific Byron Urine Protein Urine Glucose (UA) Urine Ketones Urine Occult Blood Urine Nitrite Urine Bilirubin Urine Urobilinogen Ur Leukocyte Esterase Urine RBC Urine WBC Ur Squamous Epith Cells Calcium Oxalate Crystal Urine Bacteria Hyaline Casts Urine Yeast 05/16/23 05/16/23 05/16/23 10:32 13:20 16:37 Corrected WBC Uncorrected WBC Count RBC Hgb Hct MCV MCH MCHC RDW Plt Count MPV Neut % (Auto) Lymph % (Auto) Delta % (Auto) Eos % (Auto) Baso % (Auto) Nucleat RBC Rel Count Neut # (Auto) Lymph # (Auto) Delta # (Auto) Eos # (Auto) Baso # (Auto) PHA Creatinine Clear Sodium Potassium Chloride Carbon Dioxide Anion Gap BUN Creatinine Est GFR (CKD-EPI) Glucose POC Glucose 165 POC Glucose Comment Glu2: cleaned meter Calcium Magnesium Total Creatine Kinase 175 Troponin I High Sens TSH 3rd Generation Urine Color Yellow Urine Appearance Clear Urine pH 5.5 Ur Specific Byron 1.026 Urine Protein 30 H Urine Glucose [...] % (Auto) 72.4 Lymph % (Auto) 12.6 Delta % (Auto) 7.6 Eos % (Auto) 7.1 Baso % (Auto) 0.3 Nucleat RBC Rel Count 0.5 Neut # (Auto) 3.2 Lymph # (Auto) 0.6 L Delta # (Auto) 0.3 Eos # (Auto) 0.3 Baso # (Auto) 0.0 PHA Creatinine Clear Sodium Potassium Chloride Carbon Dioxide Anion Gap BUN Creatinine Est GFR (CKD-EPI) Glucose POC Glucose 146 107 POC Glucose Comment Glu2: cleaned meter Calcium Magnesium Total Creatine Kinase Troponin I High Sens TSH 3rd Generation Urine Color Urine Appearance Urine pH Ur Specific Byron Urine Protein Urine Glucose (UA) Urine Ketones Urine Occult Blood Urine Nitrite Urine Bilirubin Urine Urobilinogen Ur Leukocyte Esterase Urine RBC Urine WBC Ur Squamous Epith Cells Calcium Oxalate Crystal Urine Bacteria Hyaline Casts Urine Yeast 05/17/23 04:19 Corrected WBC Uncorrected WBC Count RBC Hgb Hct MCV MCH MCHC RDW Plt Count MPV Neut % (Auto) Lymph % (Auto) Delta % (Auto) Eos % (Auto) Baso % (Auto) Nucleat RBC Rel Count Neut # (Auto) Lymph # (Auto) Delta # (Auto) Eos # (Auto) Baso # [...] Color Urine Appearance Urine pH Ur Specific Byron Urine Protein Urine Glucose (UA) Urine Ketones [...] 08:59 10 mg DAILY DORI Administration Pyridostigmine [place] 60 mg 05/15/23 22:00 05/17/23 08:52 Pyridostigmine [place] 60 Mg Tablet NG-TUBE 05/14/24 21:59 60 [...] for myasthenic crisis, intubated on admission to [facility], just extubated 05/15, being evaluated for possible IRF placement. -Discussed with pulmonology [facility] SETTER. -At this time remains not medically ready for transition to IRF and cannot tolerate 3 hours of therapy daily. Dependent for all mobility. Limited tolerance. -Hopefully can progress over next several days and be able to tolerate IRF level therapy when medically stable for discharge, family prefers [facility] as backup plan if LTACH not required. -Reviewed Neurology note, does not appear would require transfer to tertiary center at this time. -Will follow daily for updated progress. Plan: I completed a substantive portion of this encounter, the medical decision making portion of this note in its entirety, including Allied health note review, nursing note review, commercial sales consultant note review, discussion with nursing and case management, and more than 50% of my time was spent on counseling and coordination of care, time spent 25 minutes Patient was personally seen by me, Dr. Grover, on the day of encounter, reviewed the history and the relevant portions of the chart, including current orders, allied health and commercial sales consultant notes, labs/imaging and performed garcia elements of exam and I formulated the plan of care and facilitated the medical decision making. Documented By: Silvestre Grover MD 05/17/231043 Signed By: <Electronically signed by Silvestre Grover MD> 05/17/[address] [facility] Work Phone: 1(365) [phone] Consult note Author Silvestre Grover [facility] May 16, 2023 3:19pm Note Date/Time May 16, 2023 2:46pm [facility] [address] [place] [address] Physiatry (Rehab) Consult Note Signed Patient: Taurus Garcia MR#: [id number] : 1945 Acct:[id number] Age/Sex: 77 / M Adm Date: 3 Loc: Room: [address] [place] [address] Type: ADM IN Attending Dr: Suraj Razo MD Copies to: MD Komal Cordoba II, MD Joseph Riley, MD~ Etiologic Dx/Impairment Group Narrative Narrative: Myasthenia gravis HPI Consult Date: 05/16/23 Requesting Physician: Suraj Razo MD Primary Care Provider: Komal Schaffer II, MD Consult Narrative Reason for consult: [...] to feel generally weak, he presented to [facility] and was subsequently intubated and transferred [...] of motion. Eyes closed most of session. BOAT HAND notes reviewed, cleared for modified diet. Review of Systems Review of Systems All other systems reviewed & are negative unless noted below or in HPI [facility] Medical History Acute exacerbation of myasthenia gravis [...] mg PO DAILY 12/27/17 [History Confirmed 05/10/23] zbuexqgt-yaq-aviin acid 0.4 mg-lycopene 300 mcg-lutein 250 mcg [...] MPV Neut % (Auto) Lymph % (Auto) Delta % (Auto) Eos % (Auto) Baso % (Auto) Nucleat RBC Rel Count Neut # (Auto) Lymph # (Auto) Delta # (Auto) Eos # (Auto) Baso # (Auto) Potassium 4.0 POC Glucose 152 146 Magnesium 1.9 Urine Color Urine Appearance Urine pH Ur Specific Byron Urine Protein Urine Glucose (UA) Urine Ketones [...] % (Auto) 82.7 Lymph % (Auto) 7.8 Delta % (Auto) 5.0 Eos % (Auto) 4.2 Baso % (Auto) 0.3 Nucleat RBC Rel Count 0.5 Neut # (Auto) 4.4 Lymph # (Auto) 0.4 L Delta # (Auto) 0.3 Eos # (Auto) 0.2 Baso # (Auto) 0.0 Potassium POC Glucose 100 Magnesium Urine Color Yellow Urine Appearance Clear Urine pH 5.5 Ur Specific Byron 1.026 Urine Protein 30 H Urine Glucose [...] for myasthenic crisis, intubated on admission to [facility], just extubated 05/15, being evaluated for possible [...] when medically stable for discharge, family prefers [facility] as backup plan if LTACH not required. -Reviewed Neurology note, does not appear would require transfer to tertiary center at this time. -Will follow daily for updated progress. Plan: I completed a substantive portion of this encounter, the medical decision makingportion of this note in its entirety, including Allied health note review, nursing note review, commercial sales consultant note review, discussion with nursing and case management, and more than 50% of my time was spent on counseling and coordination of care, time spent 65 minutes Patient was personally seen by me, Dr. Grover, on the day of encounter, reviewed the history and the relevant portions of the chart, including current orders, allied health and commercial sales consultant notes, labs/imaging and performed garcia elements of exam and I formulated the plan of care and facilitated the medical decision making. Documented By: Silvestre Grover MD 05/16/23 1208 Signed By: <Electronically signed by Silvestre Grover MD> 05/16/[address] [facility] Work Phone: 1(357) [phone] Progress note Author Jamel Packer [facility] May 16, 2023 2:29pm Note Date/Time May 16, 2023 2:29pm [facility] [address] [place] [address] Neurology Progress Note Signed Patient: Taurus Garcia MR#: [id number] : 1945 Acct:[id number] Age/Sex: 77 / M Adm Date: 3 Loc: Room: [address] [place] [address] Type: ADM IN Attending Dr: Suraj Razo [...] of Supervision 1:1 Feeding Supervision Liquid Consistency [place]-Thick Liquids Recommendation Solid Consistency Pureed Solids Recommendations [...] signed by Jamel Packer DO> 05/16/23 1429 [facility] Work Phone: [phone] Progress note Author Suraj Razo [facility] May 16, 2023 1:53pm Note Date/Time May 16, 2023 1:53pm [facility] [address] [place] [address] Hospitalist Progress Note Signed Patient: Taurus Garcia MR#: [id number] : 1945 Acct:[id number] Age/Sex: 77 / M Adm Date: 3 Loc: Room: 0E5905-2 Type: ADM IN Attending Dr: Suraj Razo MD Copies to: ~ Date of Service: 05/16/2023 Subjective Subjective Narrative: Assessment And Plan 77M with PMH of HTN, HLD, Myasthenia Gravis (Dx 2016), CKD, PE(On Eliquis) who was admitted to [facility] 05/09 for generalized weakness. He was [...] Vial IV-PUSH 05/10/24 08:59 40 mg DAILY ODRI Administration Prednisone 60 mg 05/11/23 09:00 05/15/23 09:07 Prednisone 20 Mg Tablet PO 05/10/24 08:59 60 mg DAILY DORI Administration Pyridostigmine [place] 60 mg 05/15/23 22:00 05/16/23 09:25 Pyridostigmine [place] 60 Mg Tablet NG-TUBE 05/14/24 21:59 60 [...] signed by Suraj Razo MD> 05/16/23 1353 [facility] Work Phone: 1([phone]) 414-550809-26-2023 Progress note Author Stanley Burt [facility] May 16, 2023 11:27am Note Date/Time May 16, 2023 11:27am [facility] [address] [place] [address] Pulmonology Progress Note Signed Patient: Taurus Garcia MR#: [id number] : 1945 Acct:[id number] Age/Sex: 77 / M Adm Date: 3 Loc: Room: [address] [place] [address] Type: ADM IN Attending Dr: Suraj Razo [...] GI Palpation: soft and no hepatosplenomegaly Other: smith catheter in place Skin General: no rashes [...] <Electronically signed by MD Stanley Burt> 05/16/[address] [place] [address] Ctr Work Phone: 1([phone]) 616-314009-25-2023 Progress note Author Jamel Packer [facility] May 15, 2023 1:56pm Note Date/Time May 15, 2023 1:54pm [facility] [address] [place] [address] Neurology Progress Note Signed Patient: Taurus Garcia MR#: [id number] : 1945 Acct:[id number] Age/Sex: 77 / M Adm Date: 3 Loc: Room: [address] [place] [address] Type: ADM IN Attending Dr: Suraj Razo [...] Acute Documented By: Jamel Packer DO 05/15/23 1342 Signed By: <Electronically signed by Jamel Packer DO> 05/15/[address] [facility] Work Phone: [phone]) 932-863809-25-2023 Progress note Author Suraj Razo [facility] May 15, 2023 12:28pm Note Date/Time May 15, 2023 12:25pm [facility] [address] [place], [place] [address] Hospitalist Progress Note Signed Patient: Taurus Garcia MR#: [id number] : 1945 Acct:[id number] Age/Sex: 77 / M Adm Date: 3 Loc: Room: [address] [place] [address] Type: ADM IN Attending Dr: Suraj Razo MD Copies to: ~ Date of Service: 05/15/2023 Subjective Subjective Narrative: Assessment And Plan 77M with PMH of HTN, HLD, Myasthenia Gravis (Dx 2016), CKD, PE(On Eliquis) who was admitted to [facility] 05/09 for generalized weakness. He was [...] (NA Multiplex Assay) - Final 05/12/23 10:00 [place] Urine Culture - Final No Growth [...] 05/12/23 08:39 Lisinopril 20 Mg Tablet PO 09/20/24 11:44 20 mg DAILY DORI Administration Loratadine [...] 05/10/24 00:22 PROTOCOL PRN Bolus Documentation Pyridostigmine [place] 30 mg 05/14/23 14:00 05/15/23 08:57 Pyridostigmine [place] 60 Mg Tablet NG-TUBE 05/13/24 13:59 30 [...] GFR 30-59 ml/min: Plan . Documented By: Suarj Razo MD 05/15/231220 Signed By: <Electronically signed by Suraj Razo MD> 05/15/23 1227 [facility] Work Phone: 1([phone]) [phone] Progress note Author Stanley Burt [facility] May 15, 2023 11:32am Note Date/Time May 15, 2023 11:25am [facility] [address] [place] [address] Pulmonology Progress Note Signed Patient: Taurus Garcia MR#: [id number] : 1945 Acct:[id number] Age/Sex: 77 / M Adm Date: 3 Loc: Room: [address] [place] [address] Type: ADM IN Attending Dr: Suraj Razo [...] Inspection: normal to inspection Palpation: soft Other: smith catheter in place Skin General: no rashes [...] Final 05/12/23 10:00 Urine Culture - Final [place] No Growth 2 Days 05/12/23 12:25 [...] Content 7.9 ABG Base Excess 9.2 H 10//35/5 Assessment/Plan Assessment/Plan (1) Acute respiratory failure with hypoxia: (2) Myasthenic crisis: (3) CKD (chronic kidney disease) stage 3, GFR 30-59 ml/min: (4) Obstructive sleep apnea: Plan Hospital day #5, ventilator day #5 for patient with history of myasthenia graviswith history of previous pulmonary embolism who was transferred from [facility] with progressive decompensation likely related to myasthenia [...] volume overload. Documented By: Stanley Burt MD 912 Signed By: <Electronically signed by MD Stanley Burt> 05/15/23 1132 [facility] Work Phone: 1(253) 569-899509-24-2023 Progress note Author Eliezer Newell [facility] May 14, 2023 6:05pm Note Date/Time May 14, 2023 5:59pm [facility] [address] [place] [address] Hospitalist Progress Note Signed Patient: Taurus Garcia MR#: [id number] : 1945 Acct:[id number] Age/Sex: 77 / M Adm Date: 3 Loc: Room: [address] [place] [address] Type: ADM IN Attending Dr: Eliezer Newell MD Copies to: ~ Date of Service: 05/14/2023 Subjective Subjective Narrative: Assessment And Plan 77M with PMH of HTN, HLD, Myasthenia Gravis (Dx 2017), CKD, PE(On Eliquis) who was admitted to [facility] 05/09 for generalized weakness. He was intubated there then transferred for the evaluation and treatment of suspected acute myasthenia gravis exacerbation. Acute Respiratory Failure due to Myasthenia gravis exacerbation remain on MV with low O2 demand The patient required intubation at [facility] CXR 05/11 shows Continued cardiomegaly and [...] (NA Multiplex Assay) - Final 05/12/23 10:00 [place] Urine Culture - Final No Growth [...] Lactated Ringers IV 05/10/24 01:59 Not Given .[id number] DORI Immune Globulin 30 gm in 300 [...] mg DAILY DORI Administration Propofol 0 mg 09/21/23 00:23 Propofol - Infusion Bolus 1,000 Mg/100 Ml Vial IV 05/10/24 00:22 PROTOCOL PRN Bolus Documentation Pyridostigmine [place] 30 mg 05/14/23 14:00 05/14/23 13:41 Pyridostigmine [place] 60 Mg Tablet NG-TUBE 05/13/24 13:59 30 [...] . Documented By: Eliezer Newell MD 05/14/23 1756 Signed By: <Electronically signed by Eliezer Newell MD> 05/14/23 1805 [facility] Work Phone: 1(645) 522-598209-24-2023 Progress note Author Jamel Packer [facility] May 14, 2023 12:14pm Note Date/Time May 14, 2023 11:10am [facility] [address] [place] [address] Neurology Progress Note Signed Patient: Taurus Garcia MR#: [id number] : 1945 Acct:[id number] Age/Sex: 77 / M Adm Date: 3 Loc: Room: [address] [place] [address] Type: ADM IN Attending Dr: Eliezer Newell [...] signed by Jamel Packer DO> 05/14/23 1214 [facility] Work Phone: 1([phone]) [phone] Progress note Author Stanley Burt [facility] May 14, 2023 12:02pm Note Date/Time May 14, 2023 9:12am [facility] [address] [place] [address] Pulmonology Progress Note Signed Patient: Taurus Garcia MR#: [id number] : 1945 Acct:[id number] Age/Sex: 77 / M Adm Date: 3 Loc: Room: [address] [place] [address] Type: ADM IN Attending Dr: Eliezer Newell [...] Final 05/12/23 10:00 Urine Culture - Preliminary [place] No Growth 1 Day Imaging and [...] embolism who was transferred from outside hospital ([facility]) with progressive decompensation likely related to myasthenia gravis exacerbation. Patient's potassium is stable with patient getting day #4 of intravenous immunoglobulin today. Continue supportive care with patient alreadyon apixaban with nutritional support and stress ulcer prophylaxis. Note that cultures remain negative. Documented By: Stanley Burt MD 3 0910 Signed By: <Electronically signed by MD Stanley Burt> 05/14/23 1202 [facility] Work Phone: 1([phone]) [phone] Progress note Author Eliezer Newell [facility] May 13, 2023 6:40pm Note Date/Time May 13, 2023 5:41pm [facility] [address] [place] [address] Hospitalist Progress Note Signed Patient: Taurus Garcia MR#: [id number] : 1945 Acct:[id number] Age/Sex: 77 / M Adm Date: 3 Loc: Room: [address] [place] [address] Type: ADM IN Attending Dr: Eliezer Newell MD Copies to: ~ Date of Service: 05/13/2023 Subjective Subjective Narrative: Assessment And Plan 77M with PMH of HTN, HLD, Myasthenia Gravis (Dx 2016), CKD, PE(On Eliquis) who was admitted to [facility] 05/09 for generalized weakness. He was intubated there then transferred for the evaluation and treatment of suspected acute myasthenia gravis exacerbation. Acute Respiratory Failure due to Myasthenia gravis exacerbation remain on MV with low O2 demand The patient required intubation at [facility] CXR 05/11 shows Continued cardiomegaly and [...] Endotrachael Gram Stain - Final 05/12/23 10:00 [place] Urine Culture - Preliminary No Growth [...] Lactated Ringers IV 05/10/24 01:59 75 mls/hr .[id number] DORI Administration Immune Globulin 30 gm in [...] . Documented By: Eliezer Newell MD 05/13/23 1735 Signed By: <Electronically signed by Eliezer Newell MD> 05/13/[address] [facility] Work Phone: 1(632) 417-119809-23-2023 Progress note Author Stanley Burt [facility] May 13, 2023 1:31pm Note Date/Time May 13, 2023 10:36am [facility] [address] [place] [address] Pulmonology Progress Note Signed Patient: Taurus Garcia MR#: [id number] : 1945 Acct:[id number] Age/Sex: 77 / M Adm Date: 3 Loc: Room: [address] [place] [address] Type: ADM IN Attending Dr: Eliezer Newell MD Copies to: ~ Date of Service: 05/13/2023 Subjective Subjective Narrative: Patient received a second dose of intravenous immunoglobulin yesterday and was in the process of getting his third dose at the time of my evaluation today. His temperatures have been under fairly good control with [employer] sun with cultures negative to date with [...] embolism who was transferred from outside hospital ([facility]) with progressive decompensation likely related to myasthenia [...] signed by MD Stanley Burt> 05/13/23 1331 [facility] Work Phone: 1(539) 811-620709-23-2023 Progress note Author Jamel Packer [facility] May 13, 2023 1:04pm Note Date/Time May 13, 2023 1:04[facility] [address] [place] [address] Neurology Progress Note Signed Patient: Taurus Garcia MR#: [id number] : 1945 Acct:[id number] Age/Sex: 77 / M Adm Date: 3 Loc: Room: [address] [place] [address] Type: ADM IN Attending Dr: Eliezer Newell [...] look [facility] after completing his IVIG course. Code(s): G70.01 - Myasthenia gravis with (acute) exacerbation Status: Acute Documented By: Jamel Packer DO 05/13/23 1301 Signed By: <Electronically signed by Jamel Packer DO> 05/13/23 1304 [facility] Work Phone: 1(465) 151-424109-22-2023 Progress note Author Eliezer Newell [facility] May 12, 2023 6:48pm Note Date/Time May 12, 2023 3:45pm [facility] [address] [place] [address] Hospitalist Progress Note Signed Patient: Taurus Garcia MR#: [id number] : 1945 Acct:[id number] Age/Sex: 77 / M Adm Date: 3 Loc: Room: [address] [place] [address] Type: ADM IN Attending Dr: Eliezer Newell MD Copies to: ~ Date of Service: 05/12/2023 Subjective Subjective Narrative: Assessment And Plan 77M with PMH of HTN, HLD, Myasthenia Gravis (Dx 2016), CKD, PE(On Eliquis) who was admitted to [facility] 05/09 for generalized weakness. He was intubated there then transferred for the evaluation and treatment of suspected acute myasthenia gravis exacerbation. Acute Respiratory Failure remain on MV with low O2 demand The patient required intubation at [facility] CXR 05/11 shows Continued cardiomegaly and [...] Lactated Ringers IV 05/10/24 01:59 75 mls/hr .[id number] DORI Administration Immune Globulin 30 gm in [...] . Documented By: Eliezer Newell MD 05/12/23 1543 Signed By: <Electronically signed by Eliezer Newell MD> 05/12/23 2788 [facility] Work Phone: 1(508) 810-670809-22-2023 Progress note Author Jamel Packer [facility] May 12, 2023 2:06pm Note Date/Time May 12, 2023 2:06pm [facility] [address] [place] [address] Neurology Progress Note Signed Patient: Taurus Garcia MR#: [id number] : 1945 Acct:[id number] Age/Sex: 77 / M Adm Date: 3 Loc: Room: [address] [place] [address] Type: ADM IN Attending Dr: Eliezer Newell [...] signed by Jamel Packer DO> 05/12/23 1406 [facility] Work Phone: 1(521) 272-942809-22-2023 Progress note Author Stanley Burt [facility] May 12, 2023 11:21am Note Date/Time May 12, 2023 8:32am [facility] [address] [place] [address] Pulmonology Progress Note Signed Patient: Taurus Garcia MR#: [id number] : 1945 Acct:[id number] Age/Sex: 77 / M Adm Date: 3 Loc: Room: [address] [place] [address] Type: ADM IN Attending Dr: Eliezer Newell [...] embolism who was transferred from outside hospital ([facility]) with progressive decompensation likely related to myasthenia [...] instability. Documented By: Stanley Burt MD 3 [id number] Signed By: <Electronically signed by MD Stanley Burt> 05/12/[address] [facility] Work Phone: 1(549) 648-615709-22-2023 Progress note Author Eliezer Newell [facility] May 12, 2023 12:47am Note Date/Time May 11, 2023 4:12pm [facility] [address] [place] [address] Hospitalist Progress Note Signed Patient: Taurus Garcia MR#: [id number] : 1945 Acct:[id number] Age/Sex: 77 / M Adm Date: 3 Loc: Room: [address] [place] [address] Type: ADM IN Attending Dr: Eliezer Newell MD Copies to: ~ Date of Service: 05/11/2023 Subjective Subjective Narrative: Assessment And Plan 77M with PMH of HTN, HLD, Myasthenia Gravis(Dx 2016), CKD, PE (On Eliquis) who was admitted to [facility] 05/09 for generalized weakness. He was intubated there then transferred for the evaluation and treatment of suspected acute myasthenia gravis exacerbation. Acute respiratory failure The patient required intubation at [facility] CXR 05/11 shows Continued cardiomegaly and [...] Lactated Ringers IV 05/10/24 01:59 75 mls/hr .[id number] DORI Administration Immune Globulin 30 gm in [...] DORI Documented By: Eliezer Newell MD 05/11/23 1601 Signed By: <Electronically signed by Eliezer Newell MD> 05/12/23 0047 [facility] Work Phone: 1(830) 336-709909-21-2023 Consult note Author Jamel Packer [facility] May 11, 2023 1:53pm Note Date/Time May 11, 2023 12:06pm [facility] [address] [place] [address] Neurology Consult Note Signed Patient: Taurus Garcia MR#: [id number] : 1945 Acct:[id number] Age/Sex: 77 / M Adm Date: 3 Loc: Room: [address] [place] [address] Type: ADM IN Attending Dr: Eliezer Newell MD Copies to: DO Komal Bajwa II, MD Marwan Wassouf, MD~ HPI Consult Date: 05/11/23 Edge Beader: Jamel Packer DO [facility] Medical History Acute exacerbation of myasthenia gravis [...] mg PO DAILY 12/27/17 [History Confirmed 05/10/23] kclnxwys-bbp-ygszq acid 0.4 mg-lycopene 300 mcg-lutein 250 mcg [...] Aide Moe M.D.05/11/2023 7:15 AM Dictation Location: [facility] Chest X-Ray 05/11/23 05:19 IMPRESSION: Continued cardiomegaly and mild parenchymal changes. Impression dictated by: Aide Moe M.D.05/11/2023 7:14 AM Dictation Location[facility] Assessment/Plan (1) Myasthenic crisis: Assessment/Problem Details: CONSULT [...] pulmonary emboli on chronic Eliquis. Transferred from [facility]. Initially presented there on May 09, [...] <Electronically signed by Jamel Packer DO> 05/11/23 1353 [facility] Work Phone: 1(486) 993-300409-21-2023 Consult note Author Lexy Chappell [facility] May 11, 2023 12:44pm Note Date/Time May 11, 2023 12:45pm [facility] [address] [place] [address] Pulmonology Consult Note Signed Patient: Taurus Garcia MR#: [id number] : 1945 Acct:[id number] Age/Sex: 77 / M Adm Date: 3 Loc: Room: [address] [place] [address] Type: ADM IN Attending Dr: Eliezer Newell [...] history of pulmonary emboli who presented to [facility] with weakness, swallowing difficulties, and shortness [...] of systems: As mentioned above otherwise unremarkable [facility] Medical History Acute exacerbation of myasthenia gravis [...] mg PO DAILY 12/27/17 [History Confirmed 05/10/23] wwopmeru-eqq-ihgfo acid 0.4 mg-lycopene 300 mcg-lutein 250 mcg [...] neurologically improved Documented By: Lexy Chappell MD 05/11/23 1240 Signed By: <Electronically signed by Lexy Chappell MD> 05/11/23 1244 [facility] Work Phone: 1(238) 947-654309-21-2023 History and physical note Author Jarret Garza [facility] May 11, 2023 1:33am Note Date/Time May 11, 2023 1:07am [facility] [address] [place] [address] Hospitalist H&P Signed Patient: Taurus Garcia MR#: [id number] : 1945 Acct:[id number] Age/Sex: 77 / M Adm Date: 3 Loc: Room: [address] [place] [address] Type: ADM IN Attending Dr: Jarret Garza MD Copies to: MD Jarret Gonsalves II, MD~ HPI DATE OF EXAMINATION: 05/11/23 CHIEF COMPLAINT: Acute exacerbation of myasthenia gravis HISTORY OF PRESENT ILLNESS: Patient is a 77-year-old male with 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 Patient presented to [facility] on 05/09/2023 complaining of weakness over3 [...] his airway secretions, patient was intubated at [facility]. They reached outto our neurology service and discussed possibility of acute exacerbation of myasthenia gravis. Neurology accepted to see the patient on consult here for which patient was transferred to our facility for further evaluation and management. Review of Systems Review of Systems Unobtainable due to [facility]otracheal tube [facility] History Acute exacerbation of myasthenia gravis [...] mg PO DAILY 12/27/17 [History Confirmed 05/10/23] ucahspap-zxm-lpsem acid 0.4 mg-lycopene 300 mcg-lutein 250 mcg [...] no leukocytosis from most recent labs at [facility]. Repeat labs in am -Will start antibiotics [...] signed by Jarret Garza MD> 05/11/23 0133 [facility] Work Phone: 1([phone]) 174-158302-28-2023 History of Present illness Narrative* Addison Vick MD - 10/18/2022 12:48 PM EST Physician Progress Note PATIENT: [facility] #: [id number] : 1945 ADMIT DATE: 10/15/2022 6:59 PM DISCH DATE: RESPONDING PROVIDER #: Addison Vick MD QUERY TEXT: Patient admitted with weakness, fatigue, c/o fever at home. Documentation reflects sepsis due to urological source offered in H&P on 10/15. If possible, please document in the progress notes and discharge summary if sepsis was: The medical record reflects the following: Risk Factors: second tx on 10/13/2022 of BCG treatment with smith insertion and believed to be cause of [...] any questions. Danie Maldonado RN, CDS cell- [phone] office hours - 630A-300P Options provided: -- [...] 10/17/2022 12:39 PM Electronically signed by: Addison Vick MD 10/18/2022 12:47 PM * Jovan Morales [...] 3.6* 3.2* CL 104 102 102 CO2 BUN 16 19 17 CREATININE 1.13 1.09 1.17 Recent Labs 10/16/22 1320 COLORU Yellow PHUR 5.5 WBCUA 50 TO 100 RBCUA TOO NUMEROUS TO COUNT SPECGRAV 1.023 LEUKOCYTESUR SMALL* UROBILINOGEN Normal BILIRUBINUR NEGATIVE Physical Exam: NAD A/O x 3 RRR No accessory muscles of inspiration Abdomen soft, non-tender, non-distended. No CVA tenderness. Smith in place. Clear yellow UOP. No calf [...] (systemic inflammatory response syndrome) (HCC) Plan: Removed smith catheter, void trial this morning Appreciate infectious disease recommendations No active urologic intervention planned Please call urology for any further questions Jovan Morales MD 7:38 AM 10/18/2022 * Silke Haney RN - 10/18/2022 2:14 AM EST Pt tele needing new patches multiple times this shift. When this specification writer went to pt room due to [...] there is no need to wear it. garment supervisor BRIM SETTER for hospitalist group notified. * Colten Rosen RCP - 10/17/2022 9:43 PM EST Pt has own CPAP machine from home Unit was checked. 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 [facility] Office: [phone] Dharmesh Barbosa DO, Taurus Hoover DO, Jae Vela DO, Aaron Dobson DO, Tu Diallo MD, Marisabel Roldan MD, Tiara Chambers MD, Lena Guerra MD, Honorio Vuong MD, Addison Vick MD, Caleb Espinoza DO, Enrico Myers MD, [...] CNP, Dee Lazo CNP, Joana Ponce CNP, Mookie Castro TIRE CARE MANAGER, Teresita Robb TIRE CARE MANAGER, Jarrod Ladd, PA-C, Eliza Majano, SHOE FOLDER, Susanne Mock, TIRE CARE MANAGER, Jaja Stanton, TIRE CARE MANAGER [facility]PATIENT SERVICE [facility] Progress Note 10/17/2022 11:11 AM Name: Taurus Garcia Acct: [id number] Room: [address] [place] [address] Day: 2 Admit Date: 10/15/2022 6:59 PM PCP: Komal Schaffer MD Code Status: Full Code Subjective: C/C: [...] post TURBTx2, BCG therapy who presented to [facility] 10/13 with penile bleeding/suspected Smith trauma with BCG installation status post Smith placement, and discharged home. Patient returned to [facility] today with fevers with suspected sepsis with Smith associated UTI and recommended for transfer to [facility] for urologic evaluation Status post second BCG installation on 10/13 (previously initiated approximately 2 weeks ago with weekly installations). Patient noted bleeding with hematuria after instillation initially thought to be related to Smith trauma. Status post ED evaluation with Smith placement. preliminary work-up unremarkable without obvious evidence [...] No results for input(s): PROT, LABALBU, LABA1C, O1MQLED, Y1HDVNT, FT4, TSH, AST, ALT, LDH, GGT, ALKPHOS, LABGGT, BILITOT, BILIDIR, AMMONIA, AMYLASE, LIPASE, LACTATE, CHOL, HDL, LDLCHOLESTEROL, CHOLHDLRATIO, TRIG, VLDL, BBB71YT, PHENYTOIN, PHENYF, URICACID, POCGLU in the last 72 hours. ABG:No results found for: POCPH, PHART, PH, POCPCO2, LHZ1LCF, PCO2, POCPO2, PO2ART, PO2, POCHCO3, WJC3QDW, HCO3, NBEA, PBEA, BEART, BE, THGBART, THB, AOI3HUA, NFSD8ROH, N0BIINNR, O2SAT, FIO2 No results found for: SPECIAL [...] Yes Acute weakness 10/16/2022 Yes Myasthenia gravis ([facility]) 10/16/2022 Yes JAMISON (obstructive sleep apnea) 10/16/2022 Yes Current chronic use of systemic steroids 10/16/2022 Yes Type 2 diabetes mellitus with diabetic neuropathy, without long-term current use of insulin (HCC) 10/16/2022 Yes Morbid obesity ([facility]) 10/16/2022 Yes Hyponatremia 10/16/2022 Yes Hypokalemia 10/16/2022 Yes Acute retention of urine 10/16/2022 Yes Hypomagnesemia 10/16/2022 Yes Hypocalcemia 10/16/2022 Yes CRP elevated 10/17/2022 Yes Elevated procalcitonin 10/17/2022 Yes Bandemia 10/17/2022 Yes SIRS (systemic inflammatory response syndrome) ([facility]) 10/17/2022 Yes Plan: Acute fever, possible sepsis Negative urine culture so far Empiric Cefepime Elevated CRP/Pro calcitonin Hematuria and fever could be superinfection versus BCG-itis ID following Diarrhea - likely from antibiotics Probiotics Imodium with some improvement Bladder cancer s/p TURBTx2, recently started on BCG installation Smiht inserted due to retention, possible removal today [...] ID. Having some diarrhea this AM. Possible smith removal per urology. DC planning once cleared by all services * Lian Kapadia MD - 10/17/2022 7:43 AM EST Images from the original note were not included. [facility] - Infectious diseases evaluation admission date [...] to the BCG instillation Infection Control Recommendations [place] Precautions Contact Isolation Antimicrobial Stewardship Recommendations Simplification of therapy Targeted therapy History of Present Illness: Initial history: Taurus Garcia is a 77 y.o.-year-old male transferred from [facility] because of sepsis. He has a history of BCG due to high-grade known muscle invasive bladder cancer, post TURBT x2 his last BCG was 10/13/2022 They noticed some bleeding from the urethra after the BCG installation and hence came to [facility], they thought it might be from the prior Smith, so another Smith was placed and was discharged home. That he came back with fatigue malaise fever chills. There was a concern for urosepsis and urine analysis was abnormal. He was sent to [facility] 10/17/2022 Patient Vitals for the past 8 hrs: Weight 10/17/22 0600 (!) 318 lb 7 oz (144.4 kg) 10/17 Afebrile, vitals stable UA many WBC, nitrate and small leukocyte esterase Complaining of diarrhea overnight, liquid BM every 45 min, no foul smell Summary of relevant labs: Labs: Platelet, Inxulqkrsinx952 WBC6.3 CRP86.3 High Procalcitonin0.20 High Micro: U [...] There is no abdominal tenderness. Genitourinary: Comments: Smith in place Musculoskeletal: General: No swelling or [...] Keiko Jc Office: Perfect serve / office [phone] I have discussed the care of the patient, including pertinent history and exam findings, with the resident. I have seen and examined the patient and the garcia elements of all parts of the encounter have been performed by me. I agree with the assessment, plan and orders as documented by the resident. Lian Kapadia, Infectious Diseases * Jovan Morales MD - [...] Abdomen soft, non-tender, non-distended. No CVA tenderness. Smith in place. Clear yellow UOP. No calf [...] culture results Appreciate infectious disease recommendations Maintain Smith catheter for now, will void trial prior to discharge No active urologic intervention planned Please call urology for any further questions Jovan Morales MD 7:22 AM 10/17/2022 * Honorio Vuong MD - 10/16/2022 11:27 AM EST Images from the original note were not included. [facility] Office: [phone] Dharmesh Barbosa DO, Taurus Hoover DO, Jae Vela DO, Aaron Dobson DO, Tu Diallo MD, Marisabel Roldan MD, Tiara Chambers MD, Lena Guerra MD, Honorio Vuong MD, Addison Vick MD, Caleb Espinoza DO, Enrico Myers MD, Shae Sanches DO, Eliel Rizzo MD, Maulik Regan MD, Danie Barbosa DO, Gracia Altamirano MD, Uziel Nesbitt MD, Real De La Cruz DO, Haven Uribe MD, Nicolle Barros MD, Risa Chawla MD, Diann Vang MD, Stanley Valdes DO, Viri Sesay MD, Israel Lara MD, Marcelle Decker, TIRE CARE MANAGER, Adore Fraga TIRE CARE MANAGER, Jolly Cardona, TIRE CARE MANAGER, Komal Bauer, TIRE CARE MANAGER, Malaika Ortiz, [facility], Cynthia Amado, TIRE CARE MANAGER, Dee Lazo, TIRE CARE MANAGER, Joana Ponce, TIRE CARE MANAGER, Mookie Castro, TIRE CARE MANAGER, Teresita Robb, TIRE CARE MANAGER, Jarrod Ladd PA-C, Eliza Majano, SHOE FOLDER, Susanne Mock, TIRE CARE MANAGER, Jaja Stanton, TIRE CARE MANAGER [facility]PATIENT SERV[facility] Progress Note 10/16/2022 11:27 AM Name: Taurus Garcia Acct: [id number] Room: [facility] Day: 1 Admit Date: 10/15/2022 6:59 PM [...] post TURBTx2, BCG therapy who presented to [facility] 10/13 with penile bleeding/suspected Smith trauma with BCG installation status post Smith placement, and discharged home. Patient returned to [facility] earlier today with fevers with suspected sepsis with Smith associated UTI and recommended for transfer to [facility] for urologic evaluation Patient describes abrupt onset of weakness with fatigue and malaise with anorexia that began 10/14. Status post second BCG installation on 10/13 (previously initiated approximately 2 weeks ago with weekly installations). Patient noted bleeding with hematuria after instillation initially thought to be related to Smith trauma. Status post ED evaluation with Smith placement. Labs on 10/13 demonstrated possible UTI that was attributed to bacteriuria. Discussed with urology,ED physician and urology both agreed no further antibiotics required, status post Smith with decompression. Patient did return to [facility] ED earlier today with persistent malaise and [...] No results for input(s): PROT, LABALBU, LABA1C, K5SGTFE, Z4VSARC, FT4, TSH, AST, ALT, LDH, GGT, ALKPHOS, LABGGT, BILITOT, BILIDIR, AMMONIA, AMYLASE, LIPASE, LACTATE, CHOL, HDL, LDLCHOLESTEROL, CHOLHDLRATIO, TRIG, VLDL, VBO14WY, PHENYTOIN, PHENYF, URICACID, POCGLU in the last 72 hours. ABG:No results found for: POCPH, PHART, PH, POCPCO2, GPI1WAU, PCO2, POCPO2, PO2ART, PO2, POCHCO3, DCC2VLV, HCO3, NBEA, PBEA, BEART, BE, THGBART, THB, CZZ0ULF, VTIT8OBQ, V7FKBQHW, O2SAT, FIO2 No results found for: SPECIAL [...] neuropathy, without long-term current use of insulin ([facility]) 10/16/2022 Yes Morbid obesity ([facility]) 10/16/2022 Yes Hyponatremia 10/16/2022 Yes Hypokalemia 10/16/2022 Yes Acute retention of urine 10/16/2022 Yes Hypomagnesemia 10/16/2022 Yes Hypocalcemia 10/16/2022 Yes Plan: - Vitals, labs, imaging, medications reviewed - Urology consulted - ID consult - Need for antibiotics per ID - Check inflammatory markers - Check UA Honorio Vuong MD 10/16/2022 11:27 AM * Nena Porras [facility] - 10/16/2022 11:08 AM EST Pharmacy Note [...] to 30mg subq BID Nena Porras PharmD [facility] 10/16/2022 11:08 AM documented in this encounterBON [facility]ENTER[facility] Work Phone: 1(693) 877-648502-28-2023 Hospital course Narrative* Addison Vick MD - 10/18/2022 12:10 PM EST Images from the original note were not included. [facility] Office: [phone] Dharmesh Barbosa DO, Taurus Hoover DO, Jae Vela DO, Aaron Dobson DO, Tu Diallo MD, Marisabel Roldan MD, Tiara Chambers MD, Lena Guerra MD, Honorio Vuong MD, Addison Vick MD, Caleb Espinoza DO, Enrico Myers MD, [...] Bauer CNP, Malaika Ortiz, RONAL, Cynthia Amado, TIRE CARE MANAGER, Dee Lazo, GM, Joana Ponce CNP, Mookie Castro CNP, Teresita Robb CNP, Jarrod Ladd PA-C, Eliza Majano, SHOE FOLDER, Susanne Mock, TIRE CARE MANAGER, Jaja Stanton, TIRE CARE MANAGER [facility]PATIENT SERVICE [facility] Discharge Summary Patient ID: Taurus Garcia : 1945 ACCOUNT: [id number] Patient's PCP: Komal Schaffer MD Admit Date: 10/15/2022 Discharge Date: 10/18/2022 Length of Stay: 3 Code Status: Full Code Admitting Physician: Addison Vick MD Discharge Physician: Addison Vick MD Active Discharge Diagnoses: Hospital Problem Lists: Principal Problem (Resolved): Fever, unspecified Active Problems: Bladder cancer (HCC) Gross hematuria Malaise and fatigue Myasthenia gravis ([facility]) JAMISON (obstructive sleep apnea) Current chronic use of systemic steroids Type 2 diabetes mellitus with diabetic neuropathy, without long-term current use of insulin (HCC) Morbid obesity ([facility]) Hypokalemia Acute retention of urine Hypomagnesemia Hypocalcemia CRP elevated Resolved Problems: Acute weakness Hyponatremia Elevated procalcitonin Bandemia SIRS (systemic inflammatory response syndrome) ([facility]) Discharged Condition: stable Hospital Stay: Hospital Course: This is 77 years old gentleman who presented to the hospital from outlying facility with hematuria s/p Smith catheter trauma patient BCG instillation. Patient has a history of bladder cancer. He had BCG instillation on 10/13 and he noticed some hematuria. He went to the hospital. Over there a Smith catheter was placed. He was transferred over [...] plan: Disposition: Home Physician Follow Up: Komal Schaffer MD [address] [id number] Follow up in 1 week(s) your urologist [...] and follow up. Electronically signed by Addison Vick MD 10/18/2022 1:[address] Komal Schaffer MD for the opportunity to be involved in this patient's care. [facility] Phone: 1(526) 220-416109-16-2022 History and physical note* Celso Peñaloza MD, PhD - 05/06/2022 1:[address] [facility] NEW PATIENT HISTORY AND PHYSICAL EXAM PATIENT INFO: Taurus Garcia 76 year old REFERRING PROVIDER: Self PCP: Komal Schaffer II, MD HISTORY HPI: Taurus Garcia is [...] Date Cataract right DVT (deep venous thrombosis) ([facility]) ERM OD (epiretinal membrane, right eye) HTN (hypertension) Hypercoagulable state ([facility]) Hyperlipidemia Hypokalemia Myasthenia gravis ([facility]) Obesity Pulmonary embolism (HCC) RD (retinal detachment), [...] Yes Comment: rare Drug use: No 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 Celso Peñaloza MD, PhD [facility] Discharge instructions Patient Education 03/29/2022 11:56:36 [...] including vitamins, herbs, eye drops, creams, and npzo-dfd-wzldlvl medicines. Any problems you or family members [...] provider tells you to take them. Taking pofw-wtv-yhvgqoe medicines, vitamins, herbs, and supplements. Tests You [...] 06/03/2010 Document Revised: 03/08/2019 Document Reviewed: 03/08/2019 [employer] Patient Education 2020 Qumu. Follow Up Care 03/03/2022 14:58:42 With:Autumn Molina MD, Yoko Hair URO Address: [facility] [address] , [place] [phone] When: Unknown Comments:schedule Cysto/TURBT and CT [facility] 07-14-2022 Hospital Discharge instructions Patient Education 03/03/2022 11:28:54 Post Op Patient Instructions - (CUSTOM) Follow Up Care 02/09/2022 11:58:15 With:Yoko Leyva Address: [facility] [address] , [place] [address]- Business (1) When:2 to 4 weeks Comments:Reviewed pathology report and plan exudative treatment.Call for any problems.Call for followup appointment [facility]07-05-2022 Note [id number]:127[facility] 02-01-2022 Hospital Discharge instructions Patient Education [...] cells. Follow these instructions at home: Take rmnj-swb-svstitl and prescription medicines only as told by [...] is important. Where to find more information [place] [employer]: www.cancer.org National Cancer [place] (NCI): www.cancer.gov Contact a health care provider [...] 08/09/2004 Document Revised: 07/20/2018 Document Reviewed: 07/11/2017 [employer] Patient Education 2019 Qumu. [facility] 05-09-2022 Hospital Discharge instructions Patient Education [...] Follow these instructions at home: Medicines Take rdom-jyh-juzhedy and prescription medicines only as told by [...] or the blood stops without treatment. Take uzjh-xuu-svfsfhk and prescription medicines only as told by your health care provider. Drink enough fluid to keep your urine clear or pale yellow. This information is not intended to replace advice given to you by your health care provider. Make sure you discuss any questions you have with your health care provider. Document Released: 08/07/2006 Document Revised: 01/01/2020 Document Reviewed: 09/09/2017 [employer] Patient Education 2019 Qumu. Follow Up Care 12/07/2021 14:21:16 With:Autumn Molina MD, Yoko Hair URO Address: [facility] [address], [place] [address]- When: Unknown Comments:schedule follow up after TURBT [facility] 04-19-2022 Hospital Discharge instructions Patient Education 12/07/2021 [...] Follow these instructions at home: Medicines Take nrbs-uzn-uylunag and prescription medicines only as told by [...] or the blood stops without treatment. Take dbwd-btv-uzwbfpo and prescription medicines only as told by your health care provider. Drink enough fluid to keep your urine clear or pale yellow. This information is not intended to replace advice given to you by your health care provider. Make sure you discuss any questions you have with your health care provider. Document Released: 08/07/2006 Document Revised: 01/01/2020 Document Reviewed: 09/09/2017 [employer] Patient Education 2020 Qumu. Follow Up Care 11/05/2021 14:25:01 With:Autumn Molina MD, Yoko Hair URO Address: [facility] [address] , [place] [address]- [phone] When: Unknown [facility] discharge summary Author Chau Lara [facility] May 21, 2023 12:26pm Note Date/Time May 21, 2023 12 :23pm [facility] [address] [place], [place] [id number] Discharge Summary Signed Patient: Taurus Garcia MR#: [id number] : 1945 Acct:[id number] Age/Sex: 77 / M Adm Date: 3 Loc: Room: [address] [place] [address]: Chau Lara MD Copies to: MD Chau Gonsalves II, MD~ Providers Date of Discharge: 05/21/23 Discharging Provider: Chau Lara Primary Care Provider: Komal Schaffer Consults: 05/11/23 01:00 Consult to Neurology Routine [...] CKD, PE(On Eliquis) who was admitted to [facility] 05/09 for generalized weakness. He was [...] Discharge Plan Discharge Plan Patient Disposition: Rehab [facility] Additional Instructions: Inpatient Rehab to manage care: [...] tablet 1 tab PO Q8H Follow Up: Willy Green APRN [Nurse Practitioner] - 06/07/23 10:00 am Documented By: Chau Lara MD 05/21/23 1222 Signed By: <Electronically signed by Chau Lara MD> 05/21/[address] [facility] Work Phone: Evaluation + Plan note Future Appointments Appointment Date:12/27/2021 01:00:00 PM Scheduled Provider:Yoko Leyva Jr., MD Location:[facility] Appointment Type:URO Procedure 15 min Diagnostic Tests Pending * UroVysion Fish and Urine Cyto ([facility]) 12/07/21 * UroVysion Fish and Urine Cyto ([facility]) 12/07/21 [facility] evaluation + Plan note Future Appointments Appointment Date:02/01/2022 10:30:00 AM Scheduled Provider:Yoko Leyva Jr., MD Location:[facility] Appointment Type:URO Office Visit [facility] evaluation + Plan note Future Appointments Appointment Date:02/01/2022 10:30:00 AM Scheduled Provider:oYko Leyva Jr., MD Location:[facility] Appointment Type:URO Office Visit Diagnostic Tests Pending * Urine Culture [facility] Future Appointments Appointment Date:03/03/2022 11:00:00 AM Scheduled Provider: Location:[facility] Appointment Type:Surgery FT Diagnostic Tests Pending * Urine Culture [facility]17/22 [facility] Future Appointments Appointment Date:03/29/2022 11:00:00 AM Scheduled Provider:Yoko Leyva Jr., MD Location:[facility] Appointment Type:URO Office Visit [facility] note* Diagnosis Malignant neoplasm of overlapping sites of bladder (HCC)- Primary Malignant neoplasm of other specified sites of bladder documented in this encounter [facility] note* Diagnosis Screening for genitourinary condition Screening for other and unspecified genitourinary condition documented [facility] this encounter [facility] Work Phone: Evaluation note* Diagnosis Fever, unspecified- [...] response syndrome, unspecified documented in this encounter [facility] Work Phone: evaluation note* Diagnosis Onset [...] UTI (urinary tract infection) due to Enterococcus [facility] Work Phone: Evaluation note* Diagnosis Onset [...] Oropharyngeal dysphagia acut e Pulmonary emboli acute [facility] Work Phone: Evaluation note* Diagnosis Paroxysmal atrial fibrillation (CMS/HCC) Atrial fibrillation Pulmonary embolism, unspecified chronicity, unspecified pulmonary embolism type, unspecified whether acute cor pulmonale present (CMS/HCC) Myasthenia gravis (CMS/HCC) Myasthenia gravis without exacerbation High risk medication use Essential hypertension Unspecified essential hypertension Mixed hyperlipidemia Morbid obesity with BMI of 45.0-49.9, adult (CMS/HCC) documented in this encounter [facility] Work Phone: Evaluation note* Diagnosis Bilateral leg weakness- Primary Muscle weakness (generalized) Difficulty walking Difficulty in walking Right leg pain Pain in soft tissues of limb documented in this encounter [facility]* Diagnosis Type 2 diabetes mellitus with diabetic neuropathy, without long-term current use of insulin (CMS/HCC)- Primary Benign essential hypertension (CMS/HCC) Essential hypertension, benign Paroxysmal atrial fibrillation (CMS/HCC) Atrial fibrillation documented in this encounter [facility]Evaluation note* Diagnosis Bilateral leg weakness- Primary Muscle weakness (generalized) Difficulty walking Difficulty in walking Right leg pain Pain in soft tissues of limb documented in this encounter [facility] note* Diagnosis Bilateral leg weakness- Primary Muscle weakness (generalized) Difficulty walking Difficulty in walking Right leg pain Pain in soft tissues of limb documented in this encounter [facility]Evaluation note* Diagnosis Routine general medical examination at health care facility- Primary Routine general medical examination at a health care facility ACP (advance care planning) Other specified counseling Osteoarthritis of spine with radiculopathy, 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, without long-term current use of insulin (CMS/HCC) Type 2 diabetes 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, without long-term current use of insulin ([facility]/HCC) Myasthenia gravis without (acute) exacerbation (G70.00) Atherosclerosis of [place] artery of both lower extremities with intermittent claudication (CMS/HCC) Morbid (severe) obesity due to excess calories (E66.01) Body mass index [BMI] 45.0-49.9, adult (Z68.42) documented in this encounter [facility] note* Diagnosis Myasthenia gravis (CMS/HCC)- Primary Myasthenia gravis without exacerbation Class 3 severe obesity due to excess calories with serious comorbidity and body mass index (BMI) of 45.0 to 49.9 in adult ([facility]) documented in this encounter [facility] Healthcare[facility] note* Diagnosis 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cosis of toenails of both feet- Primary Venous insufficiency Unspecified venous (peripheral) insufficiency documented in this encounter [facility] Healthcare[facility] note* Diagnosis Onset Date Resolution Status Acute hypokalemia acute Dyspnea acute Generalized weakness acute [facility] Work Phone: Evaluation note* Diagnosis Onset Date Resolution Status Acute exacerbation of myasthenia gravis acute Acute hypokalemia acute Dyspnea acute Generalized weakness acute History of pulmonary embolism acute JAMISON on CPAP acute Acute exacerbation of myasthenia gravis acute Dyspnea acute Generalized weakness acute History of pulmonary embolism acute JAMISON on CPAP acute [facility] Work Phone: Evaluation note* Diagnosis Cervical stenosis of spinal canal Spinal stenosis in cervical region documented in this encounter [facility] HealthcareEvaluation note* Diagnosis Myasthenia gravis ([facility]) Myasthenia gravis without exacerbation 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cosis of toenails of both feet- Primary Venous insufficiency Unspecified venous (peripheral) insufficiency documented in this encounter [facility] note* Diagnosis Myasthenia gravis ([facility])- Primary Myasthenia gravis without exacerbation Acute on chronic right-sided heart failure ([facility]) documented in this encounter [facility] HealthcareEvaluation note* Diagnosis Myasthenia gravis ([facility])- Primary Myasthenia gravis without exacerbation Type 2 diabetes mellitus with diabetic neuropathy, without long-term current use of insulin ([facility]) Myasthenic crisis ([facility]) Other specified myoneural disorders Generalized weakness Benign essential hypertension ([facility]) Essential hypertension, benign Localized edema Edema Impaired mobility and activities of daily living Dyspnea on exertion Other dyspnea and respiratory abnormality Malignant neoplasm of overlapping sites of bladder ([facility]) Chronic respiratory failure with hypoxia ([facility]) Type 2 diabetes mellitus with diabetic chronic kidney disease ([facility]) Chronic kidney disease, stage 2 (mild) Paroxysmal atrial fibrillation ([facility]) Atrial fibrillation Morbid (severe) obesity due to excess calories ([facility]) Body mass index (BMI) 45.0-49.9, adult ([facility]) documented in this encounter [facility]* Diagnosis Benign essential hypertension ([facility])- Primary Essential hypertension, benign Yeast dermatitis Bradycardia Other specified cardiac dysrhythmias documented in this encounter [facility]* Diagnosis Paroxysmal atrial fibrillation (Multi)- Primary Atrial fibrillation High risk medication use documented in this encounter [facility] Work Phone: Evaluation note* Diagnosis Localized edema- Primary Edema Essential hypertension Unspecified essential hypertension BMI 45.0-49.9, adult (Multi) Paroxysmal atrial fibrillation (Multi) Atrial fibrillation documented in this encounter [facility] Work Phone: Evaluation note* Diagnosis 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cosis of toenails of both feet- Primary Venous insufficiency Unspecified venous (peripheral) insufficiency documented in this encounter [facility]* Diagnosis Laceration of lesser toe of left foot without foreign body present, nail damage status unspecified, initial encounter- Primary Closed nondisplaced fracture of distal phalanx of left great toe, initial encounter documented in this encounter [facility]* Diagnosis Fall, subsequent encounter- Primary Decreased mobility Weakness Other malaise and fatigue Pain Generalized pain documented in this encounter [facility]* Diagnosis Laceration of lesser toe of left foot without foreign body present, nail damage status unspecified, initial encounter- Primary Closed nondisplaced fracture of distal phalanx of left great toe, initial encounter documented in this encounter [facility]* Diagnosis Laceration of lesser toe of left foot without foreign body present, nail damage status unspecified, initial encounter- Primary Closed nondisplaced fracture of distal phalanx of left great toe, initial encounter Venous insufficiency Unspecified venous (peripheral) insufficiency documented [facility] this encounter [facility]* Diagnosis Myasthenia gravis- Primary Myasthenia gravis without exacerbation Class 3 severe obesity due to excess calories with serious comorbidity and body mass index (BMI) of 45.0 to 49.9 in adult Ulnar neuropathy of both upper extremities documented in this encounter [facility]* Diagnosis Localized edema- Primary Edema Essential hypertension Unspecified essential hypertension BMI 45.0-49.9, adult (Multi) Paroxysmal atrial fibrillation (Multi) Atrial fibrillation BMI 45.0-49.9, adult (Multi)- Primary Localized edema Edema documented in this encounter [facility] Work Phone: Evaluation note* Diagnosis 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cosis of toenails of both feet- Primary Venous insufficiency Unspecified venous (peripheral) insufficiency documented in this encounter [facility]* Diagnosis Cellulitis of right lower extremity- Primary Muscle pain Unspecified myalgia and myositis Trigger middle finger of right hand Pain Generalized pain documented in this encounter [facility]* Diagnosis Gross hematuria- Primary Lumbosacral spondylosis without myelopathy documented in this encounter [facility]* Diagnosis Pain Generalized pain documented in this encounter [facility] Author Mateo Horne [facility] June 19, 2024 2:37pm Note Date/Time June 19, 2024 2 :37pm [facility] [address] [place] [address] Hospitalist H&P Signed Patient: Taurus Garcia MR#: [id number] : 1945 Acct:[id number] Age/Sex: 78 / M Adm Date: 4 Loc: Room: [address] [place] [address] Type: ADM IN Attending Dr: Mateo Horne [...] Year ago, inSeptember, he presented to the [facility] emergency room and had to be intubated. [...] except as mentioned elsewhere in the documentation. [facility] Medical History (Updated 06/19/24 @ 14:33 by [...] mg PO DAILY 12/27/17 [History Confirmed 06/19/24] nrdkhwgx-vbz-lpxgy acid 0.4 mg-lycopene 300 mcg-lutein 250 mcg [...] % (Auto) 27.5 % (.) 06/19/24 09:49 Delta % (Auto) 11.3 % (.) 06/19/24 09:49 Eos % (Auto) 1.2 % (.) 06/19/24 09:49 Baso % (Auto) 1.0 % (.) 06/19/24 09:49 Nucleat RBC Rel Count 0.1 /100 WBC (0-0.5) 06/19/24 09:49 Neut # (Auto) 5.1 x10E3/uL (1.8-7.7) 06/19/24 09:49 Lymph # (Auto) 2.4 x10E3/uL (1.00-4.8) 06/19/24 09:49 Delta # (Auto) 1.0 x10E3/uL (0.0-0.8) H 06/19/24 [...] signed by Mateo Horne DO> 06/19/24 1437 [facility] Work Phone: History and physical note Author Denzel Zamora [facility] Note Date/Time September 11, 2024 4 :18pm [facility] [address] [place] [address] Hospitalist H&P Signed Patient: Taurus Garcia MR#: [id number] : 1945 Acct:[id number] Age/Sex: 78 / M Adm Date: 5 Loc: Room: [address] [place] [address] Type: ADM IN Attending Dr: Denzel Zamora MD Copies to: MD Denzel Gonsalves II, MD~ HPI DATE OF EXAMINATION: 09/11/24 CHIEF COMPLAINT: weakness HISTORY OF PRESENT ILLNESS: Taurus Garcia is a 78-year-old male with significant past medical history of myasthenia gravis on pyridostigmine and steroids, hyperlipidemia, hypertension on multiple antihypertensive medication, right eye blindness, 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 On assessment at bedside in the emergency room, patient resting in bed, comfortable and conversant, at bedside, states that he was feeling well yesterday, no fevers, no chills, nausea, vomiting, no chest pain and developed sudden onset chest heaviness this morning concern for myasthenic crisis based onprior symptoms. States compliance with pyridostigmine and prednisone. In the emergency room, WBC 7.8, hemoglobin 13.4, creatinine 1.49 with baseline appearing around 1, BNP 72, high-sensitivity troponin I = 9. Evaluated for negative inspiratory force, found to be around -50 to -40. Review of Systems Review of Systems Review of systems: Review of Systems Constitutional: No fatigue, diaphoresis, AMS Ears, Nose, Mouth, and Throat: no dysphagia Cardiovascular: no chest pain Respiratory: + shortness of breath GI: no abdominal pain, tenderness, distension : no burning with urination Musculoskeletal: no myalgias or arthralgias Neurologic: no loss of motor function [facility] Medical History Chronic back pain Chronic anticoagulation Prostate hypertrophy Bladder cancer chemo injected into bladder several times Pulmonary emboli HTN (hypertension) Acute exacerbation of myasthenia gravis Myasthenia gravis Surgical History History of appendectomy History of cystoscopy Family History Other Cancer Hypertension Social History Smoking Status: Never smoker Substance Use Type: None Meds Medications and Allergies Allergies No Known Allergies Allergy (Verified 09/11/24 11:23) Home Medications loratadine 10 mg tablet (Allergy Relief (loratadine)) 10 mg PO DAILY 12/27/17 [History Confirmed 09/11/24] cqqapkyq-tza-azjhp acid 0.4 mg-lycopene 300 mcg-lutein 250 mcg tablet (Adults 50Plus) 1 tab PO DAILY 12/27/17 [History Confirmed 09/11/24] omega-3 fatty acids-fish oil 360 mg-1,200 mg capsule (Fish Oil) 1 cap PO BID 12/27/17 [History Confirmed 09/11/24] simvastatin 40 mg tablet 40 mg PO HS 12/27/17 [History Confirmed 09/11/24] nebivolol 10 mg tablet 10 mg PO DAILY 05/10/23 [History Confirmed 09/11/24] apixaban 5 mg tablet (Eliquis) 5 mg PO Q12H #0 tabs 06/09/23 [Rx Confirmed 09/11/24] pyridostigmine bromide 60 mg tablet 1 tab PO QID 30 days #120 tabs 06/09/23 [Rx Confirmed 09/11/24] gabapentin 300 mg capsule 300 mg PO BID 06/19/24 [History Confirmed 09/11/24] furosemide 20 mg tablet 20 mg PO DAILY.8A #0 tabs 07/03/24 [Rx Confirmed 09/11/24] prednisone 5 mg tablet 15 mg (3 x 5 mg) PO DAILY 30 days #90 tabs 07/03/24 [Rx Confirmed 09/11/24] baclofen 10 mg tablet 10 mg PO TID 09/11/24 [History Confirmed 09/11/24] hydralazine 50 mg tablet 50 mg PO BID 09/11/24 [History Confirmed 09/11/24] lisinopril 20 mg tablet 20 mg PO DAILY 09/11/24 [History Confirmed 09/11/24] potassium chloride 10 mEq tablet,extended release(part/cryst) 10 meq PO BID 09/11/24 [History Confirmed 09/11/24] triamterene 37.5 mg-hydrochlorothiazide 25 mg tablet 1 tab PO DAILY 09/11/24 [History Confirmed 09/11/24] Exam Physical Exam Vital Signs: Temp Pulse Resp BP Pulse Ox O2 Del Method 98.2 F 59 L 24 150/68 H 95 Room Air 09/11/24 09:52 09/11/24 10:42 09/11/24 10:42 09/11/24 10:42 09/11/24 10:42 09/11/24 10:42 Narrative: General: cooperative and comfortable, cushingoid appearance Orientation: alert, awake and oriented x3 Head: normal to inspection Neck: normal visual inspection Cardio: no JVD, regular rate, regular rhythm Chest palpation & inspection: normal inspection of the chest Resp Effort & Inspection: normal respiratory effort Abd: soft, non-tender, non-distended Extremities: Warm well perfused Neuro: bilateral strength intact Results - Hospitalist H&P Lab Results Labs: Laboratory Last Values Corrected WBC 7.8 X10E3/uL (4.1-10.5) 09/11/24 10:40 Uncorrected WBC Count 7.8 x10E3/uL (4.1-10.5) 09/11/24 10:40 RBC 4.34 x10E6/uL (3.90-5.60) 09/11/24 10:40 Hgb 13.4 g/dL (13.0-17.0) 09/11/24 10:40 Hct 40.0 % (38.8-50.0) 09/11/24 10:40 MCV 92.2 fl (83.5-101) 09/11/24 10:40 MCH 30.8 pg (27.5-35.2) 09/11/24 10:40 MCHC 33.4 g/dL (32.5-35.6) 09/11/24 10:40 RDW 17.1 % (12.0-14.8) H 09/11/24 10:40 Plt Count 233 x10E3/uL (150-450) 09/11/24 10:40 MPV 9.2 fl (6.6-10.1) 09/11/24 10:40 Assessment & Plan Assessment/Plan (1) JAMISON on CPAP: (2) Morbid obesity with BMI of 45.0-49.9, adult: (3) Chronic back pain: (4) HTN (hypertension): (5) Myasthenia gravis: Plan Taurus Garcia is a 78-year-old male with significant past medical history of myasthenia gravis on pyridostigmine and steroids, hyperlipidemia, hypertension on multiple antihypertensive medication, right eye blindness, 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 1. sudden onset shortness of breath with generalized weakness - Largely subjective symptoms of weakness and chest heaviness, - In the emergency room, WBC 7.8, hemoglobin 13.4, creatinine 1.49 with baselineappearing around 1, BNP 72, high-sensitivity troponin I = 9. Evaluated for negative inspiratory force, found to be around -50 to -40. - low concern for impending respiratory failure, need for intubation at this time - will admit to 4/telemetry largely for observation, neurology consultation to assess and determine extent of exacerbation - continue home regimen of prednisone 15 mg daily, and pyridostigmine - if lack of symptomatic improvement will consult palliative care to reassess goals of care as was recently admitted to facility Chronic conditions: HTN, hyperlipidemia, h/o unprovoked PE - continue home baclofen, hydralazine and apixiban - hold lisinopril, HCTZ-triamterene given creatinine elevation - hold nebivolol given HR ~60 Diet: Cardiac Daily Labs: CBC, BMP Lines/Drains: PIV DVT ppx: apixiban for PE Code status: Full Status: inpatient Discussed with patient and at bedside. All questions answered. In agreementwith the above plan. Denzel Zamora MD Internal Medicine Hospitalist Attending Physician IP vs OBS Justification Based on differential dx, clinical care plan, and risk of adverse events, if untreated, in my clinical judgement this patient requires an acute care setting as: INPATIENT because of an expectation of an over 2 midnight stay. Estimated length of stay (# of days): 3 Documented By: Denzel Zamora MD 09/11/24 1128 Signed By: <Electronically signed by Denzel Zamora MD> 09/11/[address] [facility] Work Phone: History of Present illness Narrative* [...] medication regimen. He denies medication side effects. -[facility] [address] DO Work Phone: History of Present illness [...] medication regimen. He denies medication side effects. -[facility] 600 DO Work Phone: Hospital course Narrative No data available for this section [facility] [place] [facility] Hospital Discharge instructions No data available for this section [facility] [place] [facility] Hospital Discharge instructions Additional Instructions Inpatient [...] - Notify MD if unable to urinate, smith catheter removed on [facility] Work Phone: Hospital Discharge instructions Additional Instructions Call Dr. Saunders's office tomorrow [facility] Work Phone: Progress note No data available for this section [facility] [place] [facility] progress note Author Silvestre Grover [facility] June 10, 2023 9:35am Note Date/Time June 10, 2023 9 :35am [facility] [address] [place] [address] Physiatry(Rehab) Progress Note Signed Patient: Taurus Garcia MR#: [id number] : 1945 Acct:[id number] Age/Sex: 77 / M Adm Date: 3 Loc: 5T Room: 2X8904-3 Type: ADM IN Attending Dr: Silvestre Grover MD Copies to: ~ Date of Service: 06/09/2023 Subjective Subjective Narrative: Mr. Garcia is a 77 year old male with past medical history of myasthenia gravis,hypertension, A-fib anticoagulated with Eliquis, PE, CKD, obstructive sleep apnea on BiPAP, who presents to acute inpatient rehab with functional impairments due to MG crisis. Patient presented to [facility] on 05/11/2023 with complaints of worseninggeneralized weakness over the course of several days. He was found to be mildlyhypoxic. Also complaining of urinary symptoms. Initially admitted to [facility] for observation however developed worsening respiratory status with increased secretions and inability to protect own airway and was subsequently intubated and transferred to [facility] for neurology services. Patient received a 5-day [...] assist with ADLs if needed. Interval History: Smith out, voiding with low PVRs. Plan is [...] 06/09/23 20:47 Atorvastatin 20 Mg Tablet PO 09/30/24 21:59 20 mg HS DORI Administration Bisacodyl 10 mg 05/21/23 14:25 Bisacodyl 10 Mg Supp.Rect AR 05/20/24 14:24 DAILY PRN Constipation Docusate Sodium 100 mg 05/21/23 14:25 Docusate 100 Mg Capsule PO 05/20/24 14:24 BID PRN Constipation Docusate Sodium 283 mg 05/21/23 14:25 Docusate Enema 283 Mg/5 Ml Enema AR 05/20/24 14:24 DAILY PRN Constipation Fish Oil 1,000 mg 05/21/23 21:00 06/10/23 09:09 [place]-3/Fish Oil 1,000 Mg Capsule PO 05/20/24 20:59 [...] 05/31/24 08:59 Not Given DAILY DORI Pyridostigmine [place] 60 mg 05/21/23 18:00 06/10/23 09:09 Pyridostigmine [place] 60 Mg Tablet PO 05/20/24 17:59 60 [...] impairments secondaryto myasthenic crisis. Initially admitted to [facility]. Had to be intubated for airway protection. Successfully extubated on 05/15 and has been tolerating well. * Voiding now with low PVRs. Does not need Smith at discharge. * Home tomorrow. * Back [...] equipment to enhance the patient's a functional adventist Ensure adequate nutrition and hydration Sleep: No concerns. Pain: Continue current regimen Discharge planning: Hopefully home with his tomorrow. Plan: I completed a substantive portion of this encounter, the medical decision makingportion of this note in its entirety, including Allied health note review, nursing note review, commercial sales consultant note review, discussion with nursing and case management, and more than 50% of my time was spent on counseling and coordination of care, time spent 25 minutes Patient was personally seen by me, Dr. Grover, on the day of encounter, reviewed the history and the relevant portions of the chart, including current orders, allied health and commercial sales consultant notes, labs/imaging and performed garcia elements of exam and I formulated the plan of care and facilitated the medical decision making. Documented By: Silvestre Grover MD 06/10/23 0934 Signed By: <Electronically signed by Silvestre Grover MD> 06/10/23 0935 [facility] Work Phone: Reason for referral (narrative)* Consultation (Routine) - Authorized Specialty Diagnoses / Procedures Referred By Contluis fernando t Referred To Contact Cardiology Diagnoses Paroxysmal atrial fibrillation (CMS/HCC) Essential hypertension Mixed hyperlipidemia Procedures Follow Up In Cardiology Baltazar Hoover DO [address] [place] [address] 2, [address] [address] Baltazar Hoover DO [address] [place] [address] 2, [address] [place] [address] Referral ID Status Reason Start Date Expiration Date V isits Requested Visits Authorized [id number] Authorized 09/20/2023 09/19/2024 1 1 * Cardiovascular (Routine) - Authorized Specialty Diagnoses / Procedures Referred By Contac t Referred To Contact Diagnoses Paroxysmal atrial fibrillation (CMS/HCC) Procedures ECG 12 Lead Baltazar Hoover [facility] [address] [facility] [address] [place] [address] Referral ID Status Reason Start Date Expiration Date V isits Requested Visits Authorized [id number] Authorized 09/20/2023 09/19/2024 1 1 * Cardiovascular (Routine) - Pending Review Specialty Diagnoses / Procedures Referred By Contac t Referred To Contact Cardiology Diagnoses Paroxysmal atrial fibrillation (CMS/HCC) Procedures Holter Or Event Stage Driver Kiko, Baltazar DO Tarah [address] [facility] 2, [address] [place] [address] Referral ID Status Reason Start Date Expiration Date V isits Requested Visits Authorized [id number] Pending Review 09/20/2023 09/19/2024 1 1 * Consultation (Routine) - Authorized Specialty Diagnoses / Procedures Referred By Contac t Referred To Contact Cardiology Diagnoses Paroxysmal atrial fibrillation (CMS/HCC) Procedures Follow Up In Cardiology Kiko Baltazar DO [place] [address] [facility] [address], [address] [place] [id number] Willy Leyva, SENSOR TECHNICIAN-TIRE CARE MANAGER [address] [facility] [address], [address] [place] [address] Referral ID Status Reason Start Date Expiration Date V isits Requested Visits Authorized [id number] Authorized 09/20/2023 09/19/2024 1 1 [facility] Work Phone: Reason for referral (narrative)No reason for referral [facility] Work Phone: Summary Purpose Family History No Family History Records Found Relationship Condition Age at Onset Recorded Date/T jace Not Specified Hypertension Unknown Unknown Family Member Name Dates Details FHx: myocardial infarction: Father(V17.3, Z82.49) Status:Active Unknown Family Member Name Dates Details FHx: myocardial infarction: Father(V17.3, Z82.49) Status:Active Relationship Condition Age at Onset Recorded Date/T jace Not Specified Malignant neoplasm Unknown Hypertension Unknown Relationship Condition Age at Onset Recorded Date/T jace mother Malignant neoplasm Unknown father Hypertension Unknown Advance Directives No Advanced Directives [...] weakness July 09, 2024 5:43pm Chief Complaint Admit Date sob, weakness June 19, 2024 1 :56pm sob, weakness June 19, 2024 6 :39pm sob, weakness June 21, 2024 1 2:27pm Myasthenia Gravis Exacerbation June 22, 2024 2:40pm Myasthenia Gravis Exacerbation June 22, 2024 3:00pm Myasthenia Gravis Exacerbation June 24, 2024 1:52pm Myasthenia Gravis Exacerbation July 01, 2024 1:53pm weakness July 09, 2024 5:43pm fall July 28, 2024 4 :47pm fall July 30, 2024 1:04pm fall July 31, 2024 1:06pm Shortness of Breath September 11, 2024 1 0:57am Reason for Visit Admit Date Dyspnea June [...] 2:40pm Generalized weakness June 22, 2024 2:40pm Myasthenia gravis July 09, 2024 5:43pm MATT (acute kidney injury) July 09, 2024 5:43pm Change in vision July 09, 2024 5:43pm Generalized weakness July 09, 2024 5:43pm Chronic anticoagulation July 28 4:47pm Chronic back pain July 28, 2024 4 :47pm Counseling regarding advance directives and goals of care July 28, 2024 4:47pm Generalized weakness July 28, 2024 4:47pm GERD (gastroesophageal reflux disease) D ecember 2023 4:47pm History of pulmonary embolism July 282023 4:47pm HTN (hypertension) July 28, 2024 4 :47pm Morbid obesity with BMI of 45.0-49.9, ad ult July 28, 2024 4:47pm Myasthenia gravis July 28, 2024 4 :47pm JAMISON on CPAP July 28, 2024 4 :47pm Unable to ambulate July 28, 2024 4 :47pm Contusion of right orbit July 28, 2 024 4:47pm Head injury with fracture of skull Decem 2023 4:47pm Hypomagnesemia July 28, 2024 4 :47pm Syncope July 28, 2024 4 :47pm Chronic back pain September 11, 2024 1 0:57am HTN (hypertension) September 11, 2024 1 0:57am Morbid obesity with BMI of 45.0-49.9, ad ult September 11, 2024 10:57am Myasthenia gravis September 11, 2024 1 0:57am Myasthenia gravis in crisis August 10:57am JAMISON on CPAP September 11, 2024 1 0:57am Chief Complaint Admit Date weakness February 13, 2025 4:31 pm Reason for Visit Admit Date Chronic anticoagulation February 13, 2025 4:31pm Generalized weakness February 13, 2025 4:3 1pm Myasthenia gravis February 13, 2025 4:31 pm Chief Complaint Admit Date weakness February 13, 2025 4:31 pm Spinal stenosis, lumbar region with neur ogenic March 18, 2025 10:03am Chief Complaint * Annual f/u: 'doing good' [...] section and content) DATE CREATED AUTHOR 02/07/2018 formerly [facility] DATE CREATED AUTHOR AUTHOR'S ORGANIZ ATION 09/01/2021 [employer] DATE CREATED AUTHOR AUTHOR'S ORGANIZ ATION 01/21/2022 [facility] DATE CREATED AUTHOR AUTHOR'S ORGANIZ ATION 02/12/2022 [facility] dical Specialist DATE CREATED AUTHOR AUTHOR'S ORGANIZ ATION 07/28/2022 [facility] DATE CREATED AUTHOR AUTHOR'S ORGANIZ ATION 10/19/2022 [facility] DATE CREATED AUTHOR AUTHOR'S ORGANIZ ATION 05/26/2023 [facility] DATE CREATED AUTHOR AUTHOR'S ORGANIZ ATION 09/24/2023 [facility] DATE CREATED AUTHOR AUTHOR'S ORGANIZ ATION 10/24/2024 [facility] DATE CREATED AUTHOR AUTHOR'S ORGANIZ ATION 11/10/2024 [facility] DATE CREATED AUTHOR AUTHOR'S ORGANIZ ATION 01/18/2025 [facility] DATE CREATED AUTHOR AUTHOR'S ORGANIZ ATION 03/03/2025 [facility] DATE CREATED AUTHOR AUTHOR'S ORGANIZ ATION 03/22/2025 [facility] DATE CREATED AUTHOR AUTHOR'S ORGANIZ ATION 04/02/2025 [facility] dical Specialists EPIC Care Team (unrecognized sect ion and content) Team Status: Active Member Role Status Dates Komal Schaffer II MD Primary Care Provider Active Team Status: Active Member Role Status Dates Komal Schaffer II MD Primary Care Provider Active Start: February 13, 2025 Kathleen Parker APRN Emergency Provider Active S tart: February 13, 2025 Jarret Garza MD Admit Provider Active Sta rt: February 13, 2025 Jarret Garza MD Attending Provider Active Start: February 13, 2025 aJmel Packer DO Other Provider Active Start: February 13, 2025 Team Status: Inactive Member Role Status Dates Komal Schaffer II MD Primary Care Provider Active Start: June 19, 2024 End: June 22, 2024 Dg Jacobson DO Emergency Provider Active Start: June 19, [...] Status: Active Member Role Status Dates Komal Schaffer II MD Primary Care Provider Active Start: June 19, 2024 Dg Jacobson DO Emergency Provider Active Start: June 19, 2024 Mateo Horne DO Admit Provider , Other Provider Active Start: June 19, 2024 Jamel Packer DO Other Provider Active Start: June 19, 2024 Abi Biswas MD Attending Pr ovider, Other Provider Active Start: June 19, 2024 Team Status: Active Member Role Status Dates Komal Schaffer II MD Primary Care Provider Active Start: June 21, 2024 Dg Jacobson DO Emergency Provider Active Start: June 21, 2024 Mateo Horne DO Admit Provider , Other Provider Active Start: June 21, 2024 Silvestre Grover MD Other Provider Active Start: N 2023 Jamel Packer DO Other Provider Active Start: June 21, 2024 Abi Biswas MD Other Provider Active Start: June 21, 2024 Fidel Bennett MD Attending Provider Active Start: June 21, 2024 Team Status: Active Member Role Status Dates Komal Schaffer II MD Primary Care Provider Active Start: June 22, 2024 Silvestre Grover MD Admit Provider, Atte nding Provider Active Start: June 22, 2024 Team Status: Active Member Role Status Dates Komal Schaffer II MD Primary Care Provider Active Start: June 19, 2024 Dg Jacobson DO Emergency Provider Active Start: June 19, 2024 Mateo Lindbloom , DO Admit Provider , Attending Provider Active Start: June 19, 2024 Jamel Packer , DO Other Provider Active Start: June 19, 2024 Abi Biswas MD Other Provider Active Start: June 19, 2024 Team Status: Inactive Member Role Status Dates Komal Schaffer II MD Primary Care Provider Active Ivan Barnhart MD Attending Provider Active Child Neurologist Relationship Specialty Start Date End Date Komal Schaffer II [address] [place] [address] PCP - General Internal Medicine 12/05/16 Child Neurologist Relationship Specialty Start Date End Date Komal Schaffer II [address] [place] [address] PCP - General Internal Medicine 12/05/16 Child Neurologist Relationship Specialty Start Date End Date Komal Schaffer MD [address] [place] [address] PCP - General Internal Medicine 10/14/22 Team Status: Inactive Member Role Status Dates Komal Schaffer II MD Primary Care Provider Active Jarret Garza MD Admit Provider Active Pauline Canales Other Provider Active Tonia Rice , DO Other Provider Active Wilton Lockhart MD Other Provider Active Stanley Saunders , DO Other Provider Active Sabine Salomon , ANP-BC Other Provider Active Jamel Packer , DO Other Provider Active Nikole Mosqueda , SENSOR TECHNICIAN Other Provider Active Rubia Henning , BRIM SETTER-C Other Provider Active Mookie Tamayo , SENSOR TECHNICIAN-DECAL MAKER-C Other Provider Active Silvestre Grover MD Other Provider Active Donita Armstrong , SENSOR TECHNICIAN ACNP-BC Other Provider Active Lexy Chappell MD Other Provider Active Stanley Burt MD Other Provider Active Rhonda Rawls MD Other Provider Active Colten Xavier , DO Other Provider Active Sudhakar Gross MD Other Provider Active Eriberto Yang MD Other Provider Active Jamel Noe MD Other Provider Active Dejuan Og , DO Other Provider Active Chau Lara MD Attending Provider Active Team Status: Inactive Member Role Status Dates Komal Schaffer II MD Primary Care Provider Active Silvestre Grover MD Admit Provider, Attending Provider A ctive Libby Potter , RN Other Provider Active Melva Mendoza , HEATHER Other Provider Active Cassi Lo , RN Other Provider Active Rocio Renner , HEATHER Other Provider Active Alessia Justin , HEATHER Other Provider Active Chayito Leone , HEATHER Other Provider Active Kevin Leo MD Other Provider Active Sudhakar Leon , SENSOR TECHNICIAN Other Provider Active Meri Blanco , DO Other Provider Active Ubaldo Calvo MD Other Provider Active Mateo Horne , DO Other Provider Active Tyson Cheema MD Other Provider Active Marsha Fritz MD Other Provider Active Meera Javier , ANP- Other Provider Active Eliezer Newell MD Other Provider Active Dustin Stapleton MD Other Provider Active Ute Colvin MD Other Provider Active Chau Lara MD Other Provider Active Danie Jaramillo , DO Other Provider Active Chetan Gray MD Other Provider Active Cuong Dos Santos MD Other Provider Active Candida Perez , BRIM SETTER-C Other Provider Active Kushal Vizcarra MD Other Provider Active Torsten Burdick MD Other Provider Active Dudley Leon MD Other Provider Active Markus Johnson MD Other Provider Active Sofia Martinez , DO Other Provider Active Zia Duncan , DO Other Provider Active Rodolfo Temple , DO Other Provider Active Susanne Sharma SENSOR TECHNICIAN Other Provider Active Dru Reveles , DO Other Provider Active Jarret Garza MD Other Provider Active Yuki Leyva SENSOR TECHNICIAN Other Provider Active Queenie Shepherd SENSOR TECHNICIAN Other Provider Active Suraj Razo MD Other Provider Active Komal Albright MD Other Provider Active Angelia Gamez APRN Other Provider Active Mariana Xiong , HEATHER Other Provider Active Child Neurologist Relationship Specialty Start Date End Date Komal Schaffer MD [address] [facility] [address] [place] [address] PCP - General 05/18/23 Child Neurologist Relationship Specialty Start Date End Date Komal Schaffer MD [address] [place] [address] PCP - General Internal Medicine 01/02/23 Komal Schaffer MD [address] [place] [address] PCP - ACO Reach 01/12/23 Child Neurologist Relationship Specialty Start Date End Date Komal Schaffer MD [address] [place] [address] PCP - General Internal Medicine 01/02/23 Komal Schaffer MD [address] [place] [address] PCP - ACO Reach 01/12/23 Child Neurologist Relationship Specialty Start Date End Date Komal Schaffer MD [address] [place] [address] PCP - General Internal Medicine 01/02/23 Komal Schaffer MD [address] [place] [address] PCP - ACO Reach 01/12/23 Child Neurologist Relationship Specialty Start Date End Date Komal Schaffer MD [address] [place] [address] PCP - General Internal Medicine 01/02/23 Komal Schaffer MD [address] [place] [address] PCP - ACO Reach 01/12/23 Child Neurologist Relationship Specialty Start Date End Date Komal Schaffer MD [address] [place] [address] PCP - General Internal Medicine 01/02/23 Komal Schaffer MD [address] [place] [address] PCP - ACO Reach 01/12/23 Child Neurologist Relationship Specialty Start Date End Date Komal Schaffer MD [address] [place] [address] PCP - General Internal Medicine 01/02/23 Komal Schaffer MD [address] [place] [address] PCP - ACO Reach 01/12/23 Team Status: Inactive Member Role Status Dates Komal Schaffer II MD Primary Care Provider Active Start: February 12, 2024 End: February 12, 2024 Eriberto Leyva MD Emergency Provider Active Star t: February 12, 2024 End: February 12, 2024 Child Neurologist Relationship Specialty Start Date End Date Komal Schaffer MD [address] [place] [address] PCP - General Internal Medicine 01/02/23 Komal Schaffer MD [address] [place] [address] PCP - ACO Reach 01/12/23 Child Neurologist Relationship Specialty Start Date End Date Komal Schaffer MD [address] [place] [address] PCP - General Internal Medicine 01/02/23 Komal Schaffer MD [address] [place] [address] PCP - ACO Reach 01/12/23 Child Neurologist Relationship Specialty Start Date End Date Komal Schaffer MD [address] [place] [address] PCP - General Internal Medicine 01/02/23 Komal Schaffer MD [address] [place] [address] PCP - ACO Reach 01/12/23 Team Status: Inactive Member Role Status Dates Komal Schaffer II MD Primary Care Provider Active Start: June 22, 2024 End: July 04, 2024 Silvestre Grover MD Admit Provider, Atte nding Provider Active Start: June 22, 2024 End: July 04, 2024 Libby Potter , HEATHER Other Provider Active Star t: June 22, 2024 End: July 04, 2024 Melva Mendoza , HEATHER Other Provider Active Start : June 22, 2024 End: July 04, 2024 Rocio Renner , HEATHER Other Provider Active Star t: June 22, 2024 End: July 04, 2024 Chayito Leone , HEATHER Other Provider Active Start: N dae 2023 End: July 04, 2024 Alem Hinds [...] Start: N 2023 End: July 04, 2024 Ute Colvin MD Other Provider Active Start: June 22, 2024 End: July 04, 2024 Chau Lara MD Other Provider Active Start: June 22, 2024 End: July 04, 2024 Danie Jaramillo DO Other Provider Active Start: June 22, 2024 End: July 04, 2024 Chetan Gray MD Other Provider Active Start: No 2023 End: July 04, 2024 Cuong Dos Santos MD Other Provider Active Start: Jun End: July 04, 2024 Candida Perez NP-C Other Provider Active St art: June 22, 2024 End: July 04, 2024 Manuel Díaz APRN Other Provider Active Star t: June 22, 2024 End: July 04, 2024 Kushal Vizcarra MD Other Provider Active Start: June 22, 2024 End: July 04, 2024 Torsten Burdick MD Other Provider Active Start: No 2023 End: July 04, 2024 Dudley Leon MD Other Provider Active Start: Jun End: July 04, 2024 Mo Bauer MD Other Provider Active Star t: June 22, 2024 End: July 04, 2024 Markus Johnson MD Other Provider Active Start: N 2023 End: July 04, 2024 Sofia Martinez DO Other Provider Active Start: No 2023 End: July 04, 2024 Zia Duncan DO Other Provider Active Start : June 22, 2024 End: July 04, 2024 Susanne Sharma APRN Other Provider Active Start: June 22, 2024 End: July 04, 2024 Dru Reveles , Other Provider Active Start: June 22, 2024 End: July 04, 2024 Jarret Garza MD Other Provider Active Sta rt: June 22, 2024 End: July 04, 2024 Yuki Leyva APRN Other Provider Active Start : June 22, 2024 End: July 04, 2024 Queenie Shepherd APRN Other Provider Active St art: June 22, 2024 End: July 04, 2024 Suraj Razo MD Other Provider Active [...] Start: N 2023 End: July 04, 2024 Kamaljit Melo MD Other Provider Active Start: No vember 2023 End: July 04, 2024 Mariana Xiong RN Other Provider Active Start: N 2023 End: July 04, 2024 Team Status: Active Member Role Status Dates Komal Schaffer II MD Primary Care Provider Active Start: June 22, 2024 Silvestre Grover MD Admit Provider, Othe r Provider Active Start: June 22, 2024 Libby Potter RN Other Provider Active Star t: June 22, 2024 Melva Mendoza RN Other Provider Active Start : June 22, 2024 Rocio Renner RN Other Provider Active Star t: June 22, 2024 Chayito Leone RN Other Provider Active Start: N 2023 Alem Hinds RN Other Provider Active Start: No vember 4 Kevin Leo MD Other Provider Active Start: June 22, 2024 Meri Blanco , DO Other Provider Active Start : June 22, 2024 Ubaldo Calvo MD Other Provider Active Start : June 22, 2024 Mateo Horne , Other Provider Active Start: June 22, 2024 Tyson Cheema MD Other Provider Active Start: June 22, 2024 Marsha Fritz MD Other Provider Active Start : June 22, 2024 Danie Calles , Other Provider Active St art: June 22, [...] St art: June 22, 2024 Manuel Díaz SENSOR TECHNICIAN Other Provider Active Star t: June 22, [...] Active Start: No 2023 Zia Duncan , DO Other Provider Active Start : June 22, 2024 Susanne Sharma APRN Other Provider Active Start: June 22, 2024 Dru Reveles , Other Provider Active Start: June 22, 2024 Jarret Garza MD Other Provider Active Sta rt: June 22, 2024 Yuki Leyva , SENSOR TECHNICIAN Other Provider Active Start : June 22, 2024 Queenie Shepherd APRN Other Provider Active St art: June 22, 2024 Suraj Razo MD Other Provider Active Start: N ov2023 Komal Albright MD Other Provider Active S tart: June 22, 2024 Cliff Cabral , DO Other Provider Active Star t: June 22, 2024 Иван Carreon , DO Other Provider Active Start: June 22, [...] Status: Active Member Role Status Dates Komal Schaffer II MD Primary Care Provider Active Start: June 24, 2024 Silvestre Grover MD Admit Provider, Othe r Provider Active Start: June 24, 2024 Libby Potter , HEATHER Other Provider Active Star t: June 24, 2024 Melva Mendoza , HEATHER Other Provider Active Start : June 24, 2024 Rocio Renner , HEATHER Other Provider Active Star t: June 24, 2024 Chayito Leone , HEATHER Other Provider Active Start: N ov2023 Alem Hinds , HEATHER Other Provider Active [...] Start : June 24, 2024 Danie Calles , Other Provider Active St art: June 24, [...] Provider Active Start: Jun Candida Perez , BRIM SETTER-C Other Provider Active St art: June 24, [...] Martinez DO Other Provider Active Start: No 2023 Zia Duncan , DO Other Provider Active Start : June 24, 2024 Susanne Sharma APRN Other Provider Active Start: June 24, 2024 Dru Reveles DO Other Provider Active Start: June 24, 2024 Jarret Garza MD Other Provider Active Sta rt: June 24, 2024 Yuki Leyva APRN Other Provider Active Start : June 24, 2024 Queenie Shepherd APRN Other Provider Active St art: June 24, 2024 Suraj Razo MD Other Provider Active Start: N 2023 Komal Albright MD Other Provider Active S tart: June 24, 2024 Cliff Cabarl , DO Other Provider Active Star t: June 24, 2024 Yazid Lauri , DO Other Provider Active Start: June 24, [...] Status: Active Member Role Status Dates Komal Schaffer II MD Primary Care Provider Active Start: July 01, 2024 Silvestre Grover MD Admit Provider, Atte nding Provider, Other Provider Active Start: July 01, 2024 Libby Potter , HEATHER Other Provider Active Star t: July 01, 2024 Melva Mendoza , HEATHRE Other Provider Active Start : July 01, 2024 Rocio Renner , HEATHER Other Provider Active Star t: July 01, 2024 Chayito Leone , HEATHER Other Provider Active Start: N 2023 Alem Hinds , HEATHER Other Provider Active Start: No 2023 Kevin Leo MD Other Provider Active Start: July 01, 2024 Meri Blanco DO Other Provider Active Start : July 01, 2024 Ubaldo Calvo MD Other Provider Active Start : July 01, 2024 Mateo Horne DO Other Provider Active Start: July 01, [...] Active Start: July 01, 2024 Danie Jaramillo , Other Provider Active Start: July 01, 2024 Chetan Gray MD Other Provider Active Start: No 2023 Cuong Dos Santos MD Other Provider Active Start: Jun Candida Perez BRIM SETTER-C Other Provider Active St art: July 01, [...] Martinez DO Other Provider Active Start: No 2023 Zia Duncan DO Other Provider Active Start : July 01, 2024 Susanne Sharma APRN Other Provider Active Start: July 01, 2024 Dru Reveles DO Other Provider Active Start: July 01, 2024 Jarret Garza MD Other Provider Active Sta rt: July 01, 2024 Yuki Leyva APRN Other Provider Active Start : July 01, 2024 Queenie Shepherd APRN Other Provider Active St art: July 01, 2024 Suraj Razo MD Other Provider Active Start: N ov2023 Komal Albright MD Other Provider Active S tart: July 01, 2024 Cliff Cabral , Other Provider Active Star t: July 01, 2024 Иван Carreon DO Other Provider Active Start: July 01, 2024 Bharathi Leon MD Other Provider Active Start: July 01, 2024 Vince Shirley MD Other Provider Active Start: June Nikole Jaeger APRN Other Provider Active Star t: July 01, 2024 Kaz Prescott MD Other Provider Active Start: N ovember 2023 Kamaljit Melo MD Other Provider Active Start: No vember 2023 Mariana Xiong RN Other Provider Active Start: N ov2023 Team Status: Active Member Role Status Dates Komal Schaffer II MD Primary Care Provider Active Start: July 09, 2024 Juli Thomas , SENSOR TECHNICIAN Emergency Provider Active Start: July 09, 2024 Danie Jaramillo , DO Admit Provider, Atte nding Provider Active Start: July 09, 2024 Jamel Packer , Other Provider Active Start: July 09, 2024 Child Neurologist Relationship Specialty Start Date End Date Komal Schaffer MD [address] [place] [address] PCP - General Internal Medicine 01/02/23 Komal Schaffer MD [address] [place] [address] PCP - ACO Reach 01/12/23 Child Neurologist Relationship Specialty Start Date End Date Komal Schaffer MD [address] [place] [address] PCP - General Internal Medicine 01/02/23 Komal Schaffer MD [address] [place] [address] PCP - ACO Reach 01/12/23 Child Neurologist Relationship Specialty Start Date End Date Komal Schaffer MD [address] [place] [address] PCP - General Internal Medicine 01/02/23 Komal Schaffer MD [address] [place] [address] PCP - ACO Reach 01/12/23 Team Status: Inactive Member Role Status Dates Komal Schaffer II MD Primary Care Provider Active Start: July 09, 2024 End: July 12, 2024 Juli Thomas APRN Emergency Provider Active Start: July 09, 2024 End: July 12, 2024 Danie Jaramillo DO Admit Provider, Atte nding Provider Active Start: July 09, 2024 End: July 12, 2024 Jamel Packer DO Other Provider Active Start: July 09, 2024 End: July 12, 2024 Team Status: Inactive Member Role Status Dates Juli Thomas APRN Emergency Provider Active Start: July 28, 2024 End: July 31, 2024 Komal Schaffer II MD Primary Care Provider Active Start: July 28, 2024 End: July 31, 2024 Kamaljit Melo MD Admit Provider Active Start: 2023 End: July 31, 2024 Kaz Prescott MD Attending Provider Active Star t: July 28, 2024 End: July 31, 2024 Gucci Jacques MD Other Provider Active Start: 2023 End: July 31, 2024 Peyman Hall DO Other Provider Active Start: July 28, 2024 End: July 31, 2024 Team Status: Active Member Role Status Dates Juli Thomas APRN Emergency Provider Active Start: July 30, 2024 Komal Schaffer II MD Primary Care Provider Active Start: July 30, 2024 Kamaljit Melo MD Admit Provider Active Start: 2023 Kaz Prescott MD Other Provider Active Start: ec2023 Gucci Jacques MD Attending Provider, Other Provider Active Start: July 30, 2024 Team Status: Active Member Role Status Dates Juli Thomas APRN Emergency Provider Active Start: July 31, 2024 Komal Schaffer II MD Primary Care Provider Active Start: July 31, 2024 Kamaljit Melo MD Admit Provider Active Start: 2023 Kaz Prescott MD Other Provider Active Start: D ec2023 Gucci Jacques MD Other Provider Active Start: D ec2023 Peyman Hall DO Attending Provider, Other Provider Active Start: July 31, 2024 Team Status: Active Member Role Status Dates Komal Schaffer II MD Primary Care Provider Active Start: September 11, 2024 Joseline Barrera MD Emergency Provider Active Start: September 11, 2024 Denzel Zamora MD Admit Provider, Atte nding Provider Active Start: September 11, 2024 Jamel Packer DO Other Provider Active Start: September 11, 2024 Team Status: Inactive Member Role Status Dates Komal Schaffer II MD Primary Care Provider Active Start: September 11, 2024 End: September 13, 2024 Joseline Barrera MD Emergency Provider Active Start: September 11, 2024 End: September 13, 2024 Denzel Zamora MD Admit Provider, Atte nding Provider Active Start: September 11, 2024 End: September 13, 2024 Jamel Packer DO Other Provider Active Start: September 11, 2024 End: September 13, 2024 Child Neurologist Relationship Specialty Start Date End Date Komal Schaffer MD [address] [place] [address] PCP - General Internal Medicine 01/02/23 Komal Schaffer MD [address] [place] [address] PCP - ACO Reach 01/12/23 Child Neurologist Relationship Specialty Start Date End Date Komal Shcaffer MD [address] [place] [address] PCP - General Internal Medicine 01/02/23 Koaml Schaffer MD [address] [place] [address] PCP - ACO Reach 01/12/23 Child Neurologist Relationship Specialty Start Date End Date Komal Schaffer MD [address] [place] [address] PCP - General Internal Medicine 01/02/23 Komal Schaffer MD [address] [place] [address] PCP - ACO Reach 01/12/23 Esther Connolly, RN Clinical [facility] 09/27/24 Child Neurologist Relationship Specialty Start Date End Date Komal Schaffer MD [address] [place] [address] PCP - General Internal Medicine 01/02/23 Komal Schaffer MD [address] [place] [address] PCP - ACO Reach 01/12/23 Esther Connolly, RN [facility] 09/27/24 Child Neurologist Relationship Specialty Start Date End Date Komal Schaffer MD [address] [place] [address] PCP - General 05/18/23 Child Neurologist Relationship Specialty Start Date End Date Komal Schaffer MD [address] [place] [address] PCP - General 05/18/23 Child Neurologist Relationship Specialty Start Date End Date Komal Schaffer MD [address] [place] [address] PCP - General Internal Medicine 01/02/23 Komal Schaffer MD [address] [place] [address] PCP - ACO Reach 01/12/23 Anastasia Rayo LPN 11/08/24 Child Neurologist Relationship Specialty Start Date End Date Komal Schaffer MD [address] [place] [address] PCP - General Internal Medicine 01/02/23 Komal Schaffer MD [address] [place] [address] PCP - ACO Reach 01/12/23 Anastasia Rayo, [facility] 11/08/24 Child Neurologist Relationship Specialty Start Date End Date Komal Schaffer MD [address] [place] [address] PCP - General Internal Medicine 01/02/23 Komal Schaffer MD [address] [place] [address] PCP - ACO Reach 01/12/23 Anastasia Rayo [facility] 11/08/24 Child Neurologist Relationship Specialty Start Date End Date Komal Schaffer MD [address] [place] [address] PCP - General Internal Medicine 01/02/23 Komal Schaffer MD [address] [place] [address] PCP - ACO Reach 01/12/23 Anastasia Rayo [facility] 11/08/24 Child Neurologist Relationship Specialty Start Date End Date Komal Schaffer MD [address] [place] [address] PCP - General Internal Medicine 01/02/23 Komal Schaffer MD [address] [place] [address] PCP - ACO Reach 01/12/23 Anastasia Rayo LPN 11/08/24 Child Neurologist Relationship Specialty Start Date End Date Komal Schaffer MD [address] [place] [address] PCP - General Internal Medicine 01/02/23 Komal Schaffer MD [address] [place] [address] PCP - ACO Reach 01/12/23 Anastasia Rayo LPN 11/08/24 Child Neurologist Relationship Specialty Start Date End Date Komal Schaffer MD [address] [place] [address] PCP - General Internal Medicine 01/02/23 Komal Schaffer MD [address] [place] [address] PCP - ACO Reach 01/12/23 Anastasia Rayo LPN 11/08/24 Child Neurologist Relationship Specialty Start Date End Date Komal Schaffer MD [address] [place] [address] PCP - General Internal Medicine 01/02/23 Komal Schaffer MD [address] [place] [address] PCP - ACO Reach 01/12/23 Anastasia Rayo LPN 11/08/24 Child Neurologist Relationship Specialty Start Date End Date Komal Schaffer MD [address] [place] [address] PCP - General 05/18/23 Child Neurologist Relationship Specialty Start Date End Date Komal Schaffer MD [address] [place] [address] PCP - General Internal Medicine 01/02/23 Komal Schaffer MD [address] [place] [address] PCP - ACO Reach 01/12/23 Anastasia Rayo LPN 11/08/24 Team Status: Active Member Role Status Dates Komal Schaffer II MD Primary Care Provider Active Start: February 13, 2025 Kathleen Parker APRN Emergency Provider Active S tart: February 13, 2025 Jarret Garza MD Admit Provider Active Sta rt: February 13, 2025 Jarret Garza MD Other Provider Active Sta rt: February 13, 2025 Jamel Packer DO Attending Provider Active Sta rt: February 13, 2025 Jamel Packer DO Other Provider Active Start: February 13, 2025 Child Neurologist Relationship Specialty Start Date End Date Komal Schaffer MD [address] [place] [address] PCP - General Internal Medicine 01/02/23 Komal Schfafer MD [address] [place] [address] PCP - ACO Reach 01/12/23 Anastasia Rayo LPN [address] [place] [address] 11/08/24 Child Neurologist Relationship Specialty Start Date End Date Komal Schaffer MD [address] [place] [address] PCP - General Internal Medicine 01/02/23 Komal Schaffer MD [address] [place] [address] PCP - ACO Reach 01/12/23 Anastasia Rayo LPN [address] [place] [address] 11/08/24 Child Neurologist Relationship Specialty Start Date End Date Komal Schaffer MD [address] [place] [address] PCP - General Internal Medicine 01/02/23 Komal Schaffer MD [address] [place] [address] PCP - ACO Reach 01/12/23 Anastasia Rayo LPN [address] [place] [address] 11/08/24 Child Neurologist Relationship Specialty Start Date End Date Komal Schaffer MD [address] [place] [address] PCP - General Internal Medicine 01/02/23 Komal Schaffer MD [address] [place] [address] PCP - ACO Reach 01/12/23 Anastasia Rayo LPN [address] [place] [address] 11/08/24 Team Status: Inactive Member Role Status Dates Komal Schaffer II MD Primary Care Provider Active Start: March 18, 2025 End: March 18, 2025 Gucci Jacques MD Attending Provider Active Star t: March 18, 2025 End: March 18, 2025 Child Neurologist Relationship Specialty Start Date End Date Komal Schaffer MD [address] [place] [address] PCP - General Internal Medicine 01/02/23 Komal Schaffer MD [address] [place] [address] PCP - ACO Reach 01/12/23 Anastasia Rayo LPN [address] [place] [address] 11/08/24 Child Neurologist Relationship Specialty Start Date End Date Komal Schaffer MD [address] [place] [address] PCP - General Internal Medicine 01/02/23 Komal Schaffer MD [address] [place] [address] PCP - ACO Reach 01/12/23 Anastasia Rayo LPN [address] [place] [address] 11/08/24 Child Neurologist Relationship Specialty Start Date End Date Komal Schaffer MD [address] [place] [address] PCP - General Internal Medicine 01/02/23 Komal Schaffer MD [address] [place] [address] PCP - ACO Reach 01/12/23 Anastasia Rayo LPN [address] [place] [address] 11/08/24 Source Comments (unrecognize d section and content) In the event this informatio n is protected by the Federal Confidentiality of Alcohol and Drug Abuse Patient Records regulations: The Federal rules restrict any use of the information to criminally investigate or prosecute any alcohol or drug abuse patient.[facility] FoundationIn the event this information is protected by the Federal Confidentiality of Alcohol and Drug Abuse Patient Records regulations: The Federal rules restrict any use of the information to criminally investigate or prosecute any alcohol or drug abuse patient.[facility] Reason for Visit (unrecogniz ed section and content) Reason Comments Bladder Cancer Specialty Diagnoses / Procedures Referred By Contac t Referred To Contact Diagnoses Fever, unspecified Fever, immunocompromised patient Honorio Vuong MD [address] [place] [address] [facility] [address] [place] [address] Referral ID Status Reason Start Date Expiration Date Visits Re quested Visits Authorized [id number] 1 1 Reason Comments Follow-up 1yr Specialty Diagnoses / Procedures Referred By Contac t Referred To Contact Diagnoses Paroxysmal atrial fibrillation (CMS/HCC) Procedures ECG 12 Lead Baltazar Hoover DO [address] [facility] [address] [place] [address] Referral ID Status Reason Start Date Expiration Date V isits Requested Visits Authorized [id number] Authorized 09/20/2023 09/19/2024 1 1 Specialty Diagnoses / Procedures Referred By Contac t Referred To Contact Physical Therapy Diagnoses Myasthenia gravis without (acute) exacerbation (CMS/HCC) Procedures AR PHYSICAL THERAPY EVALUATION LOW COMPLEX 20 MINS Stanley Saunders MD [address] [place] [address] Lashell Darinel T, PT [address] [facility] [address] [place] [address] Referral ID Status Reason Start Date Expiration Date V isits Requested Visits Authorized [id number] Authorized 09/01/2023 02/28/2024 30 30 Reason Comments Medicare Annual Wellness Visit Evelia kaufman Results labs discuss medication dosage Pt states rece ntly he increased his gabapentin to 2 capsules --if this is ok will need directions changed Reason Comments Toenail Care Non DM Nails Reason Comments Med Refill Reason Comments Follow-up Hospital for dehydra tion. Patient feels weak and sore all over. Reason Comments Follow-up EKG visit Specialty Diagnoses / Procedures Referred By Bo kaufman Referred To Contact Diagnoses Bradycardia Procedures ECG 12 Lead Willy Leyva, SENSOR TECHNICIAN-TIRE CARE MANAGER [address] [facility] [address], [address] [address] Phone: tel: fax: Referral ID Status Reason Start Date Expiration Date V isits Requested Visits Authorized [id number] Authorized 10/09/2024 10/09/2025 1 1 Reason Comments Follow-up Discuss Hypertension Reason Comments Toenail Care Non dm n ail care Reason Comments Follow-up Lt gt toe Reason Comments Follow-up Lt gt fx Reason Comments Follow-up Lt gt fx Reason Comments Follow-up 2m Follow up for Atr ial Fibrillation Specialty Diagnoses / Procedures Referred By Bo kaufman Referred To Contact Cardiology Diagnoses Localized edema Procedures Follow Up In Cardiology Willy Leyva, SENSOR TECHNICIAN-TIRE CARE MANAGER [address] [facility] [address], [facility] [address] [place] [address] Phone: tel: fax: Referral ID Status Reason Start Date Expiration Date V isits Requested Visits Authorized [id number] Authorized 11/04/2024 11/04/2025 1 1 Reason Comments Toenail Care Non dm nail care Reason Onset Date Comments Med Refill 04/01/2025 Goals (unrecognized section and content) Type Treatment Intervention Code Status: Full Code Goals may be documented in an alternate section Scheduled Active and Recently Administ [...] Ryan) 0816 (Given - Provider: Adebayo Lopez RN)204 (Given - Provider: Silke Haney RN) 0923 [...] Uriarte RN)1717 (Given - Provider: Pippa Uriarte RN)2038 (Given - Provider: Shasta Ryan) 0816 (Given - Provider: Adebayo Lopez RN)1238 (Given - Provider: Adebayo Lopez RN)1702 (Given - Provider: Adebayo Lopez RN)204 (Given - Provider: Silke Haney RN) 0923 [...] BE BASED ON THE PRIMARY CLINICAL RECORDS. [employer] [facility]. provides no warranty or guarantee of the accuracy or completeness of information in this document.
[2025-04-07 10:30] VITALS: BP 179/89; PULSE 81; TEMP 36.8; O2SAT 96
[2025-04-07] MEDS: LIDOCAINE HCL 2% 400 MG/20 ML MDV 5 ML INJ (11:15)
[2025-04-07] MEDS: DEXAMETHASONE SOD PHOS 10 MG/ML VIAL INJ (11:15)
[2025-04-07] MEDS: BUPIVACAINE HCL 0.25% PF 25 MG/10 ML VIAL INJ (11:15)
[2025-04-07] MEDS: 0.9 % SODIUM CHLORIDE 10 ML SYRINGE - SALINE FLUSH INJ (11:15)
[2025-04-07] MEDS: IOHEXOL 240 MG/ML - 10 ML VIAL INJ (11:15)
--- NOTE | 2025-04-07 11:18 | P.ON_ITS ---
Date of procedure: 04/07/25 Pre-op diagnosis: Pain due to lumbar stenosis with neurogenic claudication Post-op diagnosis: same as pre-op Procedure: Procedure: Right L3-4, L4-5 transforaminal epidural steroid injection Medications: Bupivacaine 0.25% 2cc, lidocaine 2% 1cc, depomedrol 80mg The patient was seen and examined in the preoperative holding area.? Informed consent was obtained and placed on the chart.? Patient was brought to the medical procedure unit and placed in the prone position where a timeout was completed verifying the correct patient, procedure site, position, and planned special equipment using sterile aseptic technique.? Under direct fluoroscopic visualization a 25-gauge Quincke tipped spinal needle was advanced to the designated neural foramen where contrast dye was injected to show adequate spread.? The needle was inserted at level right L3-4. There was no evidence of vascular or adverse uptake.? Epidural spread was appreciated.? The above- mentioned injectate was then placed in a 1.5 mL aliquot preceded by negative aspiration.? The needle was removed. The needle was inserted and the procedure repeated at level right L4-5.? The surgery site was covered.? Patient was taken to the postprocedural recovery area and monitored for an appropriate length of time before found suitable for discharge in the accompaniment of a responsible adult. Anesthesia: Local Surgeon: Jadyn Wyman Pathology: none sent Condition: stable Disposition: no change
[2025-04-07 11:21] VITALS: BP 135/54
[2025-04-07 14:49] VITALS: BP 141/107; BP 187/103; PULSE 64; PULSE 87; O2SAT 91; O2SAT 94
== END 2025-04-07 11:26 | disposition home or self-care (01) ==
PROVIDERS: PCP Internal Medicine; Visit Provider Anesthesiology
DX: M48.062 Spinal stenosis, lumbar region with neurogenic claudication (principal); M54.50 Low back pain, unspecified
CPT/HCPCS: 64483; 64484; J0665; J1100; Q9966

== ENCOUNTER 2025-05-07 13:44 | Outpatient (OUT) | payer MEDICARE, SELFPAY ==
--- OUTSIDE RECORDS SUMMARY | 2024-04-09 09:00 | XMS_ITS ---
Author Organization [facility] in [place] Address [address] [place] [address] Care Team Providers Care Donkey Doctor Name Role Phone Patrick BRIDGES, Beni Primary Care Provider UnavailIvan Larson [phone] Encounters Encounter Location Date Provider Diagnosis Urology [facility] [address] [address] 04/09/2024 Ivan Barnhart Plan Of Treatment No Information Progress Notes * Ankur REILLY ADOB: [birth year] (79 yo M)Acc No.[id number]:04/09/2024 UNLOCKED PROGRESS NOTE 0 Patient: Ankur PRESLEY Provider: Yakelin Barnhart MD :1945 A ge:78 Y S ex:Male Date:04/09/2024 Address:[facility] [address], [id number] Pcp:Beni Nguyen MD Subjective: * Chief Complaints: * * Medical History: Objective: * Vitals: Assessment: Plan: * Treatment: * * Electronic signature of Steven Barnhart MD, [id number] on 05/07/2025 at 01:49 PM EDT Sign off status: Pending Visit Status: R /S (Rescheduled) * Provider: Yakelin Barnhart MD Date: 0 04/09/2024 Generated for Printi ng/Faxing/eTransmitting on: 0 05/07/2025 01:49 PM EDT
--- OUTSIDE RECORDS SUMMARY | 2024-06-04 04:30 | XMS_ITS ---
Author Organization [facility] in [place] Address [address] [place] [address] Care Team Providers Care Special Events Director Name Role Phone Patrick BRIDGES, Beni Primary Care Provider Unavailab Ivan Engle [phone] REASON FOR VISIT Cysto Encounters Encounter Location Date Provider Diagnosis Urology [facility] [address] [address] 06/04/2024 Ivan Barnhart Plan Of Treatment No Information Progress Notes * Ankur REILLY ADOB: [birth year] (79 yo M)Acc No.[id number]:06/04/2024 UNLOCKED PROGRESS NOTE 0 Patient: Ankur PRESLEY Provider: Yakelin Barnhart MD :1945 A ge:78 Y S ex:Male Date:06/04/2024 [address] Pcp:Beni Nguyen MD Subjective: * Chief Complaints: * 1 . Cysto. * Medical History: Objective: * Vitals: Assessment: Plan: * Treatment: * * Electronic signature of Steven Barnhart MD, [id number] on 05/07/2025 at 01:46 PM EDT Sign off status: Pending Visit Status: R /S (Rescheduled) * Provider: Yakelin Barnhart MD Date: 1 Generated for Printi ng/Faxing/eTransmitting on: 0 05/07/2025 01:46 PM EDT
--- OUTSIDE RECORDS SUMMARY | 2024-07-30 07:30 | XMS_ITS ---
Author Organization The [facility] in [place] Address [address] [place] [address] Care Team Providers Care Grades 9 Thru 12 Visiting Teacher Name Role Phone Patrick BRIDGES, Beni Primary Care Provider Unavailab Ivan Engle [phone] REASON FOR VISIT Cysto Encounters Encounter Location Date Provider Diagnosis U[facility] [address] [address] 07/30/2024 Ivan Barnhart Plan Of Treatment No Information Progress Notes * Ankur REILLY ADOB: [birth year] (79 yo M)Acc No.[id number]:07/30/2024 UNLOCKED PROGRESS NOTE 0 Patient: Ankur PRESLEY Provider: Yakelin Barnhart MD :1945 A ge:78 Y S ex:Male Date:07/30/2024 [address] [facility] Pcp:Beni Nguyen MD Subjective: * Chief Complaints: * 1 . Cysto. * Medical History: Objective: * Vitals: Assessment: Plan: * Treatment: * * Electronic signature of Steven Barnhart MD, [id number] on 05/07/2025 at 01:46 PM EDT Sign off status: Pending Visit Status: C ANC (Cancelled) * Provider: Yakelin Barnhart MD Date: 1 09/30/2023 Generated for Printi ng/Faxing/eTransmitting on: 0 05/07/2025 01:46 PM EDT
--- OUTSIDE RECORDS SUMMARY | 2025-04-24 14:50 | XMS_ITS | Encounter Summary ---
Author Organization [facility] Address [address] [facility] [address] Care Team Providers Care Ammunition Storage Superintendent Name Role Phone Beni Nguyen MD Primary Care Provider [phone] Beni Nguyen MD Unavailable [phone] Anastasia Rayo LPN Unavailable Reason for Visit * Reason Comments Toenail Care Encounter Details Date Type Department Care Team (Latest Contact Info) Description 04/24/2025 2:50 PM EDT Procedure Visit [facility] [address] [facility] [address] [place] [address] Real Og, DPMarcial [address] [facility] [address] [place] [address] 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cosis of [...] Date Recorded Patient Health Questionnaire-2 Score 2 04/01/2025 [place] [facility] - Occupational Stress [...] - - Temperature - - Respiratory Rate 16 04/24/2025 2:34 PM EDT Oxygen Saturation - - Inhaled Oxygen Concentration - - Weight 141 kg (310 lb) 04/24/2025 2:34 PM EDT Height 172.7 cm (5' 8 ) 04/24/2025 2:34 PM EDT Body Mass Index 47.14 04/24/2025 2:34 PM EDT documented in this encounter Progress Notes * Real Og DPM - 04/24/2025 2:50 PM EDT Patient: Ankur Reilly : 1945 [...] Diagnosis Date Acute respiratory failure with hypoxia ([facility]) 11/17/2023 Acute respiratory insufficiency 12/15/2018 d/t Pulmonary Emboli MATT (acute kidney injury) 09/17/2024 Allergic rhinitis due to other allergen Autoimmune disorder ([facility]) Bilateral pulmonary embolism ([facility]) 2019 Acute Hypoxic Resp. Failure Bladder cancer (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) 09/17/2024 History of being hospitalized [...] edema 2008 /pucker Muscle cramp Myasthenia gravis ([facility]) 12/27/2017 / dyspnea Myasthenic crisis ([facility]) 05/10/2023 Obesity Obstructive sleep apnea (adult) (pediatric) Pulmonary emboli ([facility]) 11/17/2023 Pulmonary embolism ([facility]) 11/2018 Pure hypercholesterolemia Shortness of [...] MILK 3 TIMES DAILY, Disp: 270tablet, Rfl: 3 furosemide (Lasix) 20 MG tablet, Take 1-2 tablets (20-40 mg) by mouth Daily, Disp: 180 tablet, Rfl:3 gabapentin (Neurontin) 300 MG capsule, TAKE 1 CAPSULE BY MOUTH IN THE MORNING AND 1 CAPSULE BY MOUTH BEFORE BEDTIME (Patient taking differently: Take 600 mg by mouth in the morning and 600 mg before bedtime.), Disp: 180 capsule, Rfl: 3 hydrALAZINE (Apresoline) [...] PO), , Disp: , Rfl: nystatin (Mycostatin) 632860 UNIT/GM powder, , Disp: , Rfl: omega-3 (Fish Oil) 1000 MG capsule, Take 2 capsules by mouth Daily, Disp: , Rfl: oxyCODONE-acetaminophen (Percocet) 5-325 MG tablet, Take 1 tablet by mouth every 12 (twelve) hours if needed for moderate pain or severe pain, [...] THE EVENING, Disp: 90 tablet, Rfl: 3 spironolactone (Aldactone) 25 MG tablet, Take 25 mg by mouth Daily, Disp: , Rfl: Social History: Social History Socioeconomic History Marital [...] min Stress: No Stress Concern Present (03/17/2023) [employer] [place] [employer] [facility] - Occupational Stress Questionnaire Feeling of Stress : Only a little Social Connections: Moderately Isolated (03/17/2023) Social Connection and Isolation Panel [NHANES] Frequency of Communication with Friends and Family: More than three times a week Frequency of Social Gatherings with Friends and Family: Once a week Attends [employer]: Never Active Member of Clubs or [...] Care Team (Late st Contact Info) Description 07/03/2025 2:40 PM EST Procedure Visit [facility] [address] [facility] [address] [place] [id number] Real Og DPM [address] [facility] [address] [place] [address] documented as of this encounter Visit Diagnoses Diagnosis 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cosis of toenails of both feet- Primary Venous insufficiency Unspecified venous (peripheral) insufficiency documented in this encounter Care Teams Ammunition Storage Superintendent Relationship Specialty Start Date End Date Beni Nguyen MD [address] [facility] [address] [place] [address] PCP - General Internal Medicine 01/02/23 Beni Nguyen MD [address] [facility] [address] [place] [address] PCP - ACO Reach 01/12/23 Anastasia Rayo LPN [address] [facility] [address] [place] [address] 11/08/24 documented as of this encounter
--- OUTSIDE RECORDS SUMMARY | 2025-05-05 09:57 | XMS_ITS | Continuity of Care Document ---
Author Organization [facility] Address [address] [place] [id number] Phone Care Team Providers Care Car Sales Representative Name Role Phone Beni Nguyen II Primary Care Provider Kathleen Parker APRN Emergency Provider Jarret Garza MD Admit Provider Jarret Garza MD Other Provider Jamel Packer DO Attending Provider Jamel Packer DO Other Provider [phone] Gucci Jacques MD Attending Provider [phone] Sandro Saunders DO Attending Provider Care Teams Patient Care Team Team Status: Active Member Role Status Dates Beni Nguyen II MD Primary Care Provider Active Visit Care Team Team Status: Active Member Role Status Dates Beni Nguyen II MD Primary Care Provider Active [...] Other Provider Active Start: February 13, 2025 Visit Care Team Team Status: Inactive Member Role Status Dates Beni Nguyen II MD Primary Care Provider Active Start: March 18, 2025 End: March 18, 2025 Gucci Jacques MD Attending Provider Active Star t: March 18, 2025 End: March 18, 2025 Patient Care Team Team Status: Inactive Member Role Status Dates Beni Nguyen II MD Primary Care Provider Active Start: May 05, 2025 End: May 05, 2025 Sandro Saunders DO Attending Provider Active Start: May 05, 2025 End: May 05, 2025 Chief Complaint and Reason for Visit Chief Complaint Admit Date weakness February 13, 2025 4:31 pm Spinal stenosis, lumbar region with neur ogenic March 18, 2025 10:03am Reason for Visit Admit Date Myasthenia gravis February 13, 2025 4:31 pm Chronic anticoagulation February 13, 2025 4:31pm Generalized weakness February 13, 2025 4:3 1pm Chronic back pain March 18, 2025 10:0 3am Inflammation of right sacroiliac joint J timmy 2024 10:03am Lumbar stenosis without neurogenic augustine ication March 18, 2025 10:03am Morbid obesity with BMI of 45.0-49.9, ad ult March 18, 2025 10:03am Scoliosis March 18, 2025 10:0 3am Lumbar stenosis without neurogenic augustine ication May 05, 2025 1:25pm Myasthenia gravis May 05, 2025 1:25pm Reason for Referral Referring Provider Name Referring Provider Address Referring Provider Phone Referral Date Requested Appointment Date Referral Reason Marcial Costello [address] [place], [place] [id number] Work Phone: Marcial Costello [address] [place], [place] [phone] Work Phone: The office is currently closed. Please call the office on Monday for a follow-up appointment. The office is currently closed. Please call the office on Monday for a follow-up appointment within 3-5 days. Allergies, Adverse Reactions, Alerts Allergen Type Severity Reaction Last Updated Verified Status No Known Allergies Allergy Unknown 2024 1:36pm Yes Active Social History Smoking Status Status Start Date End Date Date of Observa tion Never smoked tobacco (finding) February 14, 2025 9:04am Observation Status Observation Response Date of Response Legal Sex Male (finding) Sex Assigned At Male [birth year] Social History Assessments Assessment Value Date Recorded SDOH Follow up February 14, 2025 12:05pm Question Answer Date Recorded Has the SDOH screening changed since admission? N February 14, 2025 12:05pm Family History Relationship Condition Age at Onset Recorded Date/T jace mother Malignant neoplasm Unknown father Hypertension Unknown Problems Active Problems Medical Problem Onset Date Status Comments Counseling regarding advance directives and goals of c are Unknown Active JAMISON on CPAP Unknown Active Scoliosis Unknown Active Dyspnea Unknown Active Myasthenia gravis Unknown Active Inflammation of right sacroiliac joint Unknown Ac tive Morbid obesity with BMI of 45.0-49.9, adult Unknown Active Chronic back pain Unknown Active Unable to ambulate Unknown Active History of pulmonary embolism Unknown Active GERD (gastroesophageal reflux disease) Unknown Ac tive HTN (hypertension) Unknown Active Lumbar stenosis without neurogenic claudication Unknow n Active Inactive/Resolved Problems Medical Problem Onset Date Status Comments MATT (acute kidney injury) Unknown Resolved Obstructive sleep apnea Unknown Resolved Prob khanh List clean-up per request of Phys. EHR Cmte Acute respiratory failure wi th hypoxia Unknown Resolved Problem List clean-u p per request of Phys. EHR Cmte Myasthenic crisis Unknown Resolved Problem Li st clean-up per request of Phys. EHR Cmte Troponin I above reference range Unknown Resolved Problem List clean-up per request of Phys. EHR Cmte UTI (urinary tract infection ) due to Enterococcus Unknown Resolved Problem List clean-u p per request of Phys. EHR Cmte Impaired mobility and activi ties of daily living Unknown Resolved Problem List clean-u p per request of Phys. EHR Cmte Exertional dyspnea Unknown Resolved Problem L ist clean-up per request of Phys. EHR Cmte Hard of hearing Unknown Resolved Problem List clean-up per request of Phys. EHR Cmte CKD (chronic kidney disease) stage 3, GFR 30-59 ml/min Unknown Resolved Problem List clean-u p per request of Phys. EHR Cmte Generalized weakness Unknown Resolved Atrial fibrillation Unknown Resolved Problem List clean-up per request of Phys. EHR Cmte Chronic anticoagulation Unknown Resolved Contusion of right orbit Unknown Resolved Hyperlipidemia Unknown Resolved Myasthenia gravis Unknown Resolved Myasthenia gravis in crisis Unknown Resolved Myasthenia gravis in crisis Unknown Resolved Problem List clean-up per request of Phys. EHR Cmte Acute exacerbation of myasth enia gravis Unknown Resolved Acute exacerbation of myasth enia gravis Unknown Resolved Problem List clean-u p per request of Phys. EHR Cmte Syncopal episodes Unknown Resolved Syncope Unknown Resolved Urinary tract infection in male Unknown Resolved Problem List clean-up per request of Phys. EHR Cmte Weakness Unknown Resolved Head injury with fracture of skull Unknown Resolv ed Morbid obesity with BMI of 50.0-59.9, adult Unknown Resolved Problem List clean-u p per request of Phys. EHR Cmte Pulmonary emboli Unknown Resolved Problem Lis t clean-up per request of Phys. EHR Cmte Oropharyngeal dysphagia Unknown Resolved Prob khanh List clean-up per request of Phys. EHR Cmte Hypertension Unknown Resolved Problem List cl brenden-up per request of Phys. EHR Cmte Hypomagnesemia Unknown Resolved Medications Medication Status Dose Units Route Directions Qty Days St art Date Stop Date End Date Instructions Adherence Prednisone 5 mg tablet Active 15 MG PO Daily 270 90 February 26, 2025 10:35a m Complies with drug therapy Aspirin 325 mg Tablet Discont inued 325 MG PO Daily February 21, 2018 12:00a m December 18, 2018 12:27 pm Metoprolol Tartrate 25 mg tablet Discont inued 25 MG PO Twice daily February 21, 2018 12:00a m December 15, 2018 7:56p m Sulfamethox azole-Trime thoprim (Bactrim Ds) 800-160 mg tablet Discont inued 1 TAB PO Twice daily February 23, 2018 12:00a m December 15, 2018 7:44p m Cephalexin (Keflex) 500 mg capsule Discont inued 500 MG PO Q6H 28 7 January 20, 2019 12:00a m Septe mber 2022 11:59 pm Furosemide 20 mg tablet Discont inued 20 MG PO Daily 2022 12:00a m [facility] [place]iot 2023 2:12p m Potassium Chloride 10 mEq tablet,ER particles/c rystals Discont inued 10 MEQ PO Daily 2022 12:00a m Octob er 2022 9:05a m Nebivolol 10 mg tablet Discont inued 10 MG PO Daily 2022 12:00a m February 13, 2025 12:06 pm On Hold: Resume on 09/20/24. Apixaban 5 mg (74 tabs) tablets,dos e pack Discont inued 5 MG PO Q12H Septem elliot 2022 11:58p m Octob er 2022 9:05a m Amiodarone 200 mg Tablet Discont inued 200 MG PO Every morning 30 30 Septem elliot 2022 12:00a m Octob er 2022 10:37 am Prednisone 5 mg Tablet Discont inued 15 MG PO Daily 90 30 Novemb er 2023 1:00am February 26, 2025 10:36 am Saccharomyc es Boulardii 250 mg Capsule Discont inued 250 MG PO Twice daily 60 30 Novemb er 2023 1:00am [facility] [place] 2023 7:29p m Lidocaine (Lidocaine Pain Relief) 4 % Adhesive Patch,Medic ated Discont inued 2 PATCH TOPICA L Daily 60 30 Novemb er 2023 1:00am Aug ry 2024 2:52p m Furosemide 20 mg Tablet Active 20 MG PO Daily at 0800 0 Novemb er 2023 1:00am Complies with drug therapy Lisinopril 20 mg Tablet Discont inued 20 MG PO Daily 30 30 Novemb er 2023 1:00am [facility] elliot 2023 12:46 pm Hydralazine 25 mg Tablet Discont inued 25 MG PO Twice daily 60 30 Novemb er 2023 2:12pm [facility] elliot 2023 6:26p m Spironolact one 25 mg Tablet Discont inued 25 MG PO Daily 30 30 Novemb er 2023 2:12pm Jan ry 2024 2:52p m Doxycycline Hyclate 100 mg tablet Discont inued 100 MG PO Twice daily Dece er 2023 1:00am [facility] elliot 2023 12:46 pm Prednisone 10 mg tablet Discont inued 15 MG PO Daily Dece er 2023 1:00am [facility] elliot 2023 12:46 pm Baclofen 10 mg tablet Discont inued 10 MG PO Three times daily Dece er 2023 1:00am [facility] elliot 2023 12:46 pm Prednisone 10 mg tablet Discont inued 10 MG PO As Directed 36 Decemb er 2023 1:00am Augua ry 2024 2:51p m Take 60 mg (6 tablets) daily for 3 days followed by 40 mg (4 tablets) daily for another 3 days followed by 20 mg (2 tablets) daily for another 3 days. After that please go back to your overall prednisone 15 mg daily as this is your chronic maintenance dose of steroids for your myasthenia gravis. Take prednisone with meals. Oxycodone 5 mg Tablet Discont inued 2.5 MG PO Every 4 hours as needed for Pain 30 7 Decemb er 2023ua ry 2024 2:52p m Amlodipine 5 mg tablet Discont inued 5 MG PO Daily December 27, 2017 12:00a m Septe mber 2022 11:59 pm Pyridostigm ine [place] 60 mg tablet Discont inued 1 TAB PO Four times daily December 27, 2017 12:00a m Octob er 2022 9:05a m Prednisone 10 mg tablet Discont inued December 27, 2017 12:00a m December 27, 2017 5:01p m Prednisone 10 mg tablet Discont inued 10 MG PO Daily December 27, 2017 12:00a m Octob er 2022 9:05a m Aspirin 325 mg Tablet Discont inued 325 MG PO Daily December 27, 2017 12:00a m February 14, 2018 9:26a m Lisinopril 20 mg tablet Discont inued 20 MG PO Daily December 27, 2017 12:00a m [facility] elliot 2023 2:12p m On Hold: Resume on 07/01/24. Simvastatin 40 mg tablet Active 40 MG PO Bedtime December 27, 2017 12:00a m Complies with drug therapy Naproxen Sodium (Aleve) 220 mg Tablet Discont inued 2 TAB PO Daily December 27, 2017 12:00a m December 18, 2018 12:27 pm Triamterene -Hydrochlor othiazid (Maxzide-25 mg) 37.5-25 mg tablet Discont inued 1 TAB PO Daily December 27, 2017 12:00a m Octob er 2022 9:05a m Hydralazine 50 mg tablet Discont inued 50 MG PO Twice daily December 27, 2017 12:00a m Novem elliot 2023 12:27 pm Loratadine (Allergy Relief (Loratadine )) 10 mg Tablet Active 10 MG PO Daily December 27, 2017 12:00a m Complies with drug therapy Multivit-Mi n-Fa-Lycope n-Lutein (Adults 50 Plus) 0.4-300-250 mg-mcg-mcg Tablet Active 1 TAB PO Daily December 27, 2017 12:00a m Complies with drug therapy [place]-3 Fatty Acids-Fish Oil (Fish Oil) 360-1,200 mg Capsule Active 1 CAP PO Twice daily December 27, 2017 12:00a m Complies with drug therapy Baclofen 10 mg tablet Discont inued 1 TAB PO Q8H December 15, 2018 12:00a m Octob er 2022 12:22 pm Albuterol Sulfate 90 mcg/actuati on HFA aerosol inhaler Discont inued 2 PUFF INHALA TION Q4H as needed for Shortness Of Breath December 15, 2018 12:00a m [facility] 2022 11:59 pm Apixaban 5 mg (74 tabs) tablets,dos e pack Discont inued 0 PO .COMPLEX 74 December 18, 2018 12:00a m [facility] 2022 11:59 pm take 10 mg by mouth twice daily for 7 days; then 5 mg twice daily Aspirin (Aspir-Low) 81 mg tablet,brenda yed release (DR/EC) Discont inued 81 MG PO Daily December 18, 2018 12:00a m [facility] 2022 11:59 pm Nystatin (Nystop) 100,000 unit/gram Powder Discont inued 1 APPLIC TOPICA L Three times daily Mayobe r 2022 12:00a m Octob er 2023 10:38 am Apixaban (Eliquis) 5 mg Tablet Active 5 MG PO Q12H 0 Mayobe r 2022 12:00a m Complies with drug therapy Prednisone 10 mg tablet Discont inued 10 MG PO Daily r 2022 9:05am Novem elliot 2023 2:12p m On Hold: Resume on 06/24/24. Pyridostigm ine [place] 60 mg tablet Discont inued 1 TAB PO Four times daily 120 Octobe r 2022 9:05am Septe mber 2024 1:53p m Triamterene -Hydrochlor othiazid (Maxzide-25 mg) 37.5-25 mg tablet Discont inued 1 TAB PO Daily Octobe r 2022 9:05am Novem elliot 2023 12:27 pm Potassium Chloride 10 mEq tablet,ER particles/c rystals Discont inued 10 MEQ PO Daily Octobe r 2022 9:05am Janua ry 2024 2:53p m Amiodarone 200 mg Tablet Discont inued 200 MG PO Every morning Octobe r 2022 10:37a m Octob er 2023 10:36 am Prednisone 10 mg tablet Discont inued 60 MG PO Daily February 12, 2024 12:00a m Octob er 2023 10:37 am administer with food or milk Hydrocodone -Acetaminop hen 5-325 mg tablet Discont inued 1 TAB PO Daily as needed for pain Octobe r 2023 12:00a m Novem elliot 2023 12:27 pm Gabapentin 300 mg capsule Active 600 [facility] 12:00a m Complies with drug therapy Acetaminoph en (Tylenol) 325 mg Tablet Discont inued 650 MG PO Q4H as needed for Pain Scale 1 - 3 or fever 0 Novemb er 2023 12:00a m Novem elliot 2023 7:27p m Ascorbic Acid (Vitamin C) (Vitamin C) 500 mg Tablet Discont inued 500 MG PO Daily 0 Novemb er 2023 12:00a m Janua ry 2024 2:52p m Hydralazine 25 mg Tablet Discont inued 25 MG PO Twice daily 0 Novemb er 2023 12:00a m Novem elliot 2023 2:12p m Pantoprazol e 40 mg Tablet,Brenda yed Release (Dr/Ec) Discont inued 40 MG PO Twice daily 0 10 Novemb er 2023 12:00a m Novem elliot 2023 7:28p m Phenylephri ne-[place] Butter (Preparatio n H(Pe,Cb)) 0.25-88.44 % Suppository Discont inued 1 SUPP MN Twice daily as needed for hemorrhoids 0 Novemb er 2023 12:00a m Novem elliot 2023 7:28p m Prednisone 20 mg Tablet Discont inued 60 MG PO Daily 3 1 Novemb er 2023 12:00a m Novem elliot 2023 2:12p m Potassium Chloride (Klor-Con 10) 10 mEq Tablet Extended Release Discont inued 10 MEQ PO 3x/Day with meals 0 3 Novemb er 2023 12:00a m Novem elliot 2023 2:12p m Potassium Chloride (Klor-Con M20) 20 mEq Tablet,Er Particles/C rystals Discont inued 20 MEQ PO Daily as needed for Hypokalemia 0 Novemb er 2023 12:00a m Novem elliot 2023 2:12p m Spironolact one 25 mg Tablet Discont inued 25 MG PO Daily 0 Novemb er 2023 12:00a m Novem elliot 2023 2:12p m Hydrocodone -Acetaminop hen 5-325 mg tablet Discont inued 1 TAB PO Every 6 hours as needed for pain Novemb er 2023 1:00am Dece elliot 2023 2:03p m Triamterene -Hydrochlor othiazid 37.5-25 mg tablet Discont inued 1 TAB PO Every morning Novemb er 2023 1:00am Dece elliot 2023 12:46 pm Nystatin (Nystop) 100,000 unit/gram Powder Discont inued 1 APPLIC TOPICA L Four times daily 30 10 Novemb er 2023 1:00am Augua 2024 2:52p m Clotrimazol e (Antifungal (Clotrimazo le)) 1 % Cream Discont inued 1 APPLIC TOPICA L Twice daily 30 Novemb er 2023 1:00am Augua ry 2024 2:52p m Lisinopril 20 mg tablet Discont inued MG Augua2024 1:00am 2024 2:53p m Baclofen 10 mg tablet Active 10 MG PO Three times daily 2024 1:00am Complies with drug therapy Hydralazine 50 mg tablet Active 50 MG PO Twice daily 2024 1:00am Complies with drug therapy Lisinopril 20 mg tablet Active 20 MG PO Daily 2024 1:00am Complies with drug therapy Triamterene -Hydrochlor othiazid 37.5-25 mg tablet Discont inued 1 TAB PO Daily 2024 1:00am February 13, 2025 12:06 pm Potassium Chloride 10 mEq tablet,ER particles/c rystals Active 20 MEQ PO Twice daily 2024 1:00am Complies with drug therapy Oxycodone-A cetaminophe n 5-325 mg tablet Active 1 TAB PO Q12H as needed for pain February 13, 2025 12:00a m Complies with drug therapy Spironolact one 25 mg tablet Active 25 MG PO Daily February 13, 2025 12:00a m Complies with drug therapy Pyridostigm ine [place] 60 mg tablet Active 60 MG PO Three times daily 90 30 Sept2024 1:53pm Complies with drug therapy Immunizations Immunization Event Date Not Given Reason Dose Number Cash Checker Lot Number Vaccine Information Statement (VIS) Detail Administration Location Fluzone TIV High-Dose 65YR+ June 22, 2024 [id number] A [facility] Vital Signs Vital Reading Result Reference Range Collection Date/Time Height 68 [in_i] February 13, 2025 8:43pm Weight 136.60 kg February 14, 2025 5:44am Body Temperature 98.6 [degF] 97.6-99.0 February 14, 2025 3:29pm Heart Rate 90 /min 60-100 February 14, 2025 3:29pm Respiratory rate 16 /min 12-24 February 14, 2025 3:29pm Oxygen saturation by Pulse oximetry 95 % 95-100 February 14, 2025 3:29 pm BP Systolic 128 mm[Hg] 100-140 February 14, 2025 3:29pm BP Diastolic 64 mm[Hg] 60-100 February 14, 2025 3:29pm Height 68 [in_i] March 18, 2025 10:09am Weight 139.40 kg March 18, 2025 10:09am BMI (Body Mass Index) 46.7 kg/m2 February 192024 10:09am Weight 137.43 kg May 05, 2025 1:34pm Heart Rate 105 /min 60-100 May 05, 2025 1:34pm Oxygen saturation by Pulse oximetry 94 % 95-100 May 05, 2025 1:34pm BP Systolic 176 mm[Hg] 100-140 May 05, 2025 1:34pm BP Diastolic 98 mm[Hg] 60-100 May 05, 2025 1:34pm Advance Directives Advance Directive Response Recorded Date/ Time Advance Directives No December 27, 2017 2:28pm Insurance Providers Guarantor Ankur Reilly Address [address] [facility] [address] Contact Info. Home Phone: Payer Policy Id Subscriber's Name Subscriber Id Effectiv e Date Expiration Date Medicare [id number] Ankur Reilly [id number] Medicare Rehab-IP Part A [id number] Ankur Reilly [id number] Encounters Encounter Location(s) Arrival/Admit Date Discharge/Depart Date Provider(s) Non-patient / Non-visit -[facility] February 13, 2025 4:31pm Jamel Packer DO Departed Physician/Prov ider Office Visit -[facility] March 18, 2025 10:03am March 18, 2025 10:36am Gucci Jacques MD Departed Physician/Prov ider Office Visit -[facility] [place] May 05, 2025 1:25pm May 05, 2025 1:55pm Marcial Dave DO Recent Diagnosis Onset Date Admit Date Myasthenia gravis Unknown February 13 4:31pm Chronic anticoagulation Unknown January 4:31pm Generalized weakness Unknown February 13, 2025 4:31pm Chronic back pain Unknown March 18 10:03am Inflammation of right sacroiliac joint Unknown March 18, 2025 10:03am Lumbar stenosis without neur ogenic claudication Unknown March 18, 2025 10:03am Morbid obesity with BMI of 45.0-49.9, adult Unkn own March 18, 2025 10:03am Scoliosis Unknown March 18, 2025 10:03am Lumbar stenosis without neur ogenic claudication Unknown May 05, 2025 1:25pm Myasthenia gravis Unknown April 1:25pm Assessments Diagnosis Onset Date Resolution Status Admit Date Myasthenia gravis acute February 132024 4:31pm Chronic anticoagulation inactive J une 2024 4:31pm Generalized weakness inactive February 13, 2025 4:31pm Chronic back pain acute March 182024 10:03am Inflammation of right sacroiliac joint acute March 18, 2025 10:03am Lumbar stenosis without neurogenic claudication acute February 10:03am Morbid obesity with BMI of 45.0-49.9, adult acute March 18, 2025 10:03am Scoliosis acute March 18 10:03am Lumbar stenosis without neurogenic claudication acute Septembe r 2024 1:25pm Myasthenia gravis acute Septemb er 2024 1:25pm Plan of Treatment Author Sandro Saunders [facility] Authored May 05, 2025 1:55pm Mr. Pascual is an 79-year-ol d male with a history of antibody positive myasthenia gravis. He does have a history of myasthenic crisis in April 2023 at which time he received a 5-day course of IVIG and was intubated with mechanical ventilation. Since the prior neurology appointment, he has been maintained on prednisone 15 mg daily and pyridostigmine 60 mg PO QID. He reports evaluation at [facility] [place] late August 2024 due to mild [...] without any changes to his home medications. Since the patient's last visit he did notice some more left eye worsening and weakness and was admitted for neurology evaluation due to shortness of breath. He was essentially back to baseline by the time he was seen by neurology and was discharged with prednisone 15 mg p.o. daily and pyridostigmine 60 mg 4 times per day. Today, he feels better and looks stronger. He has been undergoing physical therapy. PLAN: - Continue prednisone 15 mg by mouth once a day - Continue pyridostigmine IR 60 mg by mouth four times a day. Given some of his cholinergic symptoms, I would suggest reducing this to 3 times per day. Patient will trial this. - I advised the patient to notify the office or seek care if he develops dizziness, lightheadedness, chest pain, or syncope - I offered referral to [facility] for a second opinion regarding his [...] of myasthenic exacerbation/crisis and will notify the office if he experiences any of these Patient does have substantial stenosis and scoliosis of the lumbar spine and has substantial comorbidities including pulmonary emboli on permanent anticoagulation, morbid obesity and myasthenia gravis as well as advanced age. He did seek an opinion from neurosurgery regarding this. Plan: Patient was found to be a very poor surgical candidate and surgery was not recommended by neurosurgery Author Gucci Jacques [facility] Authored March 18, 2025 10:4 5am I independently reviewed the x-ray of the lumbar spine and the MRI of the lumbar spine and the report. Patient has multiple levels of stenosis he has significant scoliosis. In addition he has significant comorbidities to include pulmonary emboli on permanent anticoagulation, morbid obesity, bilateral knee pain, myasthenia gravis, advanced age. He has occasional right thigh pain that comes and goes not necessarily associated with walking. He has bilateral knee pain and a lot of right sacroiliac pain that he claims is probably the worst problem my recommendation is pain management focused on the right sacroiliac region. I see no evidence for surgical intervention in this gentleman he is a enormous surgical risk and in my opinion a very poor surgical risk. Future Tests Future scheduled test information is unavailable Pending Tests Pending diagnostic test information is unavailable Future Visits Future appointment information is unavailable Referrals to Other Providers Reason for Referral Referral Start Date Provider Provider Contact Information Provider Address The office is currently closed. Please call the office on Monday for a follow-up appointment. [facility] [place] Work Phone: [address] [facility] [phone] The office is currently closed. Please call the office on Monday for a follow-up appointment within 3-5 days. Beni Nguyen II MD Work Phone: [address] [facility] [address] [facility] [address] Future Procedures Procedure Name Ordered Date Scheduled Date Initiate Home Health February 14, 2025 12:20pm Admit Status Order February 13, 2025 4:31pm January 202024 4:31pm Discharge Order February 14, 2025 1:29pm January 1:29pm Consult to Neurology February 13, 2025 4:33pm February 13, 2025 4:33pm Future Medications Future medication information is unavailable Patient Instructions Instruction Admit Date Know your Meds February 13, 2025 4:31 pm
--- OUTSIDE RECORDS SUMMARY | 2025-05-07 13:47 | XMS_ITS | Encounter Summary ---
Author Organization [facility] Address [address] [place] [address] Phone Care Team Providers Care Slasher Runner Name Role Phone Beni Nguyen MD Primary Care Provider [phone] Encounter Details Date Type Department Care Team (Late st Contact Info) Description 09/11/2024 Scanned Document [facility] [address] [place] [phone] Scanning, Generic Provider Social History Tobacco Use [...] Description 09/25/2025 2:10 PM EST Office Visit [facility] [address] [facility] [address] [place] [address] Juan C Hoover, 703 [facility] 2, [address] [place] [address] documented as of this encounter Procedures Procedure [...] documented as of this encounter Care Teams Slasher Runner Relationship Specialty Start Date End Date Beni Nguyen MD 112 [facility] 110 [place] [address] PCP - General 05/18/23 documented as of this encounter
--- OUTSIDE RECORDS SUMMARY | 2025-05-07 13:47 | XMS_ITS | Clinical Summary ---
Author Organization [facility] Address [address] [facility], [address] [place] [address] Care Team Providers Care Ceo And Founder Name Role Phone Beni Nguyen MD Primary Care Provider [phone] Allergies No known active allergies Medications loratadine (CLARITIN REDITABS) 10 MG dissolvable tablet Take by mouth 02/17/2022 Active Wauseon-3 Fatty Acids (FISH OIL) 1200 MG CAPS [...] yrs+ (1 - 1-dose 75+ series) 2018 Flu vaccine (#1) 03/21/2025 05/19/2021, , 05/27/2019, Additional history exists COVID-19 Vaccine (2024- season) 2025 05/24/2021, 11/09/2020, 10/18/2020 Polio vaccine Aged Out No longer omijeremy ajay based on patient's age to complete this topic Insurance MEDICARE [employer] MEDICARE SUPP Advance Directives * Full Code (Latest Code Status on File) Date Activated Date Inactivated Comments 10/15/2022 7:20 PM 10/18/2022 5:43 PM Care Teams Ceo And Founder Relationship Specialty Start Date End Date Beni Nguyen MD [address] [place] [address] PCP - General Internal Medicine 10/14/22
--- OUTSIDE RECORDS SUMMARY | 2025-05-07 13:47 | XMS_ITS | Encounter Summary ---
Author Organization [facility] Address [address] [place] [address] Phone Care Team Providers Care Blast Furnace Keeper Name Role Phone Beni Nguyen MD Primary Care Provider [phone] Encounter Details Date Type Department Care Team (Late st Contact Info) Description 08/10/[address] [facility] [address] [place] [address] Conversion, Onbase Social History Tobacco Use Types [...] Description 09/25/2025 2:10 PM EST Office Visit [facility] 7[address] [facility] [address] [place] [address] Juan C Hoover, DO [address], [address] [place] [address] Scheduled Orders Name Type Priority Associated Diagnoses Orde r Schedule OUTSIDE LAB SCAN Lab Ordered: 08/10/2022 documented as of this encounter Visit Diagnoses Not on filedocumented in this encounter Care Teams Blast Furnace Keeper Relationship Specialty Start Date End Date Beni Nguyen MD [address] [place] [address] PCP - General 05/18/23 documented as of this encounter
--- OUTSIDE RECORDS SUMMARY | 2025-05-07 13:47 | XMS_ITS | Encounter Summary ---
Author Organization [facility] Address [address] [place] [address] Care Team Providers Care Director Of Special Services Name Role Phone Beni Nguyen MD Primary Care Provider [phone] Beni Nguyen MD Unavailable [phone] Anastasia Rayo LPN Unavailable Encounter Details Date Type Department Care Team (Late st Contact Info) Description 02/24/2025 [facility] [place] [facility] [address] [facility] 110 [place] [address] Beni Nguyen MD [address] [place] [facility] 110 [place] [address] Social History Tobacco Use Types Packs/Day Years [...] often do you attend chur ch or yazidism services? Never 03/17/2023 Do you [...] Recorded Patient Health Questionnaire-2 Score 2 02/18/2025 [facility] - Occupational [...] Upcoming Encounters Date Type Department Care Team ([facility] Contact Info) Description 07/03/2025 2:40 PM EST Procedure Visit [facility] [address] [facility] 120 [place] [address] Real Og DPM 3006 [facility] 5 [place] [address] documented as of this encounter Visit Diagnoses Not on filedocumented in this encounter Care Teams Director Of Special Services Relationship Specialty Start Date End Date Beni Nguyen MD [address] [facility] 110 [place] [address] PCP - General Internal Medicine 01/02/23 Beni Nguyen MD [address] [facility] 110 [place] [address] PCP - ACO Reach 01/12/23 Anastasia Rayo LPN 112 [facility] 110 [place] [address] 11/08/24 documented as of this encounter
--- OUTSIDE RECORDS SUMMARY | 2025-05-07 13:47 | XMS_ITS | Encounter Summary ---
Author Organization [facility] Address [address] [place] [address] Care Team Providers Care Automobile Relocation Engineer Name Role Phone Beni Nguyen MD Primary Care Provider [phone] Beni Nguyen MD Unavailable Anastasia Rayo LPN Unavailable Encounter Details Date Type Department Care Team (Late st Contact Info) Description 12/18/2024 Abstract [facility] [place] [facility] [address] [facility] 110 [place] [address] Beni Nguyen MD 112 [facility] 110 [place] [address] Social History Tobacco Use Types Packs/Day Years [...] Recorded Patient Health Questionnaire-2 Score 0 12/05/2024 [facility]at ional [facility] - [...] Encounters Date Type Department Care Team ([facility] Contact Info) Description 07/03/2025 2:40 PM EST Procedure Visit [facility] [address] [facility] 120 [place] [address] Real Og DPM 3006 [facility] 5 [place] [address] documented as of this encounter Visit Diagnoses Not on filedocumented in this encounter Care Teams Automobile Relocation Engineer Relationship Specialty Start Date End Date Beni Nguyen MD [address] [facility] 110 [place] [address] PCP - General Internal Medicine 01/02/23 Beni Nguyen MD [address] [facility] 110 [place] [address] PCP - ACO Reach 01/12/23 Anastasia Rayo LPN 112 [facility] 110 [place] [address] 11/08/24 documented as of this encounter
--- OUTSIDE RECORDS SUMMARY | 2025-05-07 13:47 | XMS_ITS | Encounter Summary ---
Author Organization [facility] Address [address] [place] [address] Care Team Providers Care Powerhouse Oiler Name Role Phone Beni Nguyen MD Primary Care Provider [phone] Beni Nguyen MD Unavailable [phone] Anastasia Rayo LPN Unavailable Encounter Details Date Type Department Care Team (Late st Contact Info) Description 05/05/2025 [facility] [place] [facility] [address] [facility] 110 [place] [address] Beni Nguyen MD 112 [facility] 110 [place] [address] Social History Tobacco Use Types Packs/Day Years [...] often do you attend chur ch or adventist services? Never 03/17/2023 Do you belong to [...] Recorded Patient Health Questionnaire-2 Score 2 04/01/2025 [facility] of Occupat ional Health [...] Date Type Department Care Team ([facility] Contact Info) Description 07/03/2025 2:40 PM EST Procedure Visit [facility] [address] [facility] 120 [place] [address] Real Og DPM 3006 [facility] 5 [place] [address] documented as of this encounter Visit Diagnoses Not on filedocumented in this encounter Care Teams Powerhouse Oiler Relationship Specialty Start Date End Date Beni Nguyen MD [address] [facility] 110 [place] [address] PCP - General Internal Medicine 01/02/23 Beni Nguyen MD [address] [facility] 110 [place] [address] PCP - ACO Reach 01/12/23 Anastasia Rayo LPN 112 [facility] 110 [place] [address] 11/08/24 documented as of this encounter
--- OUTSIDE RECORDS SUMMARY | 2025-05-07 13:47 | XMS_ITS | Clinical Summary ---
Author Organization [facility] Address [id number] [address] [place] [address] Care Team Providers Care Camera Operator Name Role Phone Beni Nguyen MD Primary Care Provider [phone] Allergies No known active allergies Medications omega-3 [...] Medical Devices Not on file Insurance MEDICARE [facility] Care Teams Camera Operator Relationship Specialty Start Date End Date Beni Nguyen MD 112 [facility] 110 [place] [address] PCP - General Internal Medicine 10/02/19
--- OUTSIDE RECORDS SUMMARY | 2025-05-07 13:47 | XMS_ITS | Encounter Summary ---
Author Organization [facility] Address [address] [place] [address] Phone Care Team Providers Care Addressing Machine Operator Name Role Phone Beni Nguyen MD Primary Care Provider [phone] Encounter Details Date Type Department Care Team (Late st Contact Info) Description 05/21/2023 Scanned Document [facility] [address] [place] [address] Scanning, Generic Provider Social History Tobacco Use [...] Description 09/25/2025 2:10 PM EST Office Visit [facility] 703 [facility] [address] [place] [address] Juan C Hoover, 703 [facility] 2, [address] [place], [place] [address] documented as of this encounter Visit Diagnoses Not on filedocumented in this encounter Care Teams Addressing Machine Operator Relationship Specialty Start Date End Date Beni Nguyen MD [address] [facility] 110 [place] [address] PCP - General 05/18/23 documented as of this encounter
--- OUTSIDE RECORDS SUMMARY | 2025-05-07 13:47 | XMS_ITS | Encounter Summary ---
Author Organization [facility] Address [address] [place] [address] Care Team Providers Care Hub Lead Name Role Phone Beni Nguyen MD Primary Care Provider [phone] Beni Nguyen MD Unavailable [phone] Anastasia Rayo LPN Unavailable Encounter Details Date Type Department Care Team (Late st Contact Info) Description 03/27/2025 Abstract [facility] [place] [facility] [address] [facility] 110 [place] [address] Beni Nguyen MD 112 [place] [facility] 110 [place] [address] Social History Tobacco Use Types Packs/Day Years [...] Recorded Patient Health Questionnaire-2 Score 2 02/18/2025 [facility] of Occupat ional Health - Occupational [...] Care Team ([facility] Contact Info) Description 07/03/2025 2:40 PM EST Procedure Visit [facility] [address] [facility] 120 [place] [address] Real Og DPM 3006 [facility] 5 [place] [address] documented as of this encounter Visit Diagnoses Not on filedocumented in this encounter Care Teams Hub Lead Relationship Specialty Start Date End Date Beni Nguyen MD [address] [facility] 110 [place] [address] PCP - General Internal Medicine 01/02/23 Beni Nguyen MD [address] [facility] 110 [place] [address] PCP - ACO Reach 01/12/23 Anastasia Rayo LPN 112 [facility] 110 [place] [address] 11/08/24 documented as of this encounter
--- OUTSIDE RECORDS SUMMARY | 2025-05-07 13:47 | XMS_ITS | Encounter Summary ---
Author Organization [facility] Address [address] [place] [address] Care Team Providers Care Stitcher Tape Controlled Machine Name Role Phone Beni Nguyen MD Primary Care Provider [phone] Beni Nguyen MD Unavailable [phone] Anastasia Rayo LPN Unavailable Encounter Details Date Type Department Care Team (Late st Contact Info) Description 03/19/[address] [facility] [address] [facility] 110 [place] [address] Beni Nguyen MD 112 [facility] 110 [place] [address] Social History Tobacco Use Types Packs/Day Years [...] often do you attend chur ch or restorationism services? Never 03/17/2023 Do you belong to [...] Recorded Patient Health Questionnaire-2 Score 2 02/18/2025 [facility] Occupat ional Health [...] [facility] Contact Info) Description 07/03/2025 2:40 PM EST Procedure Visit [facility] [address] [facility] 120 [place] [address] Real Og DPM 3006 [facility] 5 [place] [address] documented as of this encounter Visit Diagnoses Not on filedocumented in this encounter Care Teams Stitcher Tape Controlled Machine Relationship Specialty Start Date End Date Beni Nguyen MD [address] [facility] 110 [place] [address] PCP - General Internal Medicine 01/02/23 Beni Nguyen MD [address] [facility] 110 [place] [address] PCP - ACO Reach 01/12/23 Anastasia Rayo LPN 112 [facility] 110 [place] [address] 11/08/24 documented as of this encounter
--- OUTSIDE RECORDS SUMMARY | 2025-05-07 13:47 | XMS_ITS | Encounter Summary ---
Author Organization [facility] Address [address] [place] [address] Care Team Providers Care Personal Companion Name Role Phone Beni Nguyen MD Primary Care Provider [phone] Beni Nguyen MD Unavailable [phone] Anastasia Rayo LPN Unavailable Encounter Details Date Type Department Care Team (Late st Contact Info) Description 05/05/2025 Abstract [facility] [place] [facility] [address] [facility] 110 [place] [address] Beni Nguyen MD [address] [place] [facility] 110 [place] [address] Social History Tobacco Use Types Packs/Day Years [...] Recorded Patient Health Questionnaire-2 Score 2 04/01/2025 [facility] of Occupat ional [...] Upcoming Encounters Date Type Department Care Team ([facility] Contact Info) Description 07/03/2025 2:40 PM EST Procedure Visit [facility] [address] [facility] 120 [place] [address] Real Og DPM 3006 [facility] 5 [place] [address] documented as of this encounter Visit Diagnoses Not on filedocumented in this encounter Care Teams Personal Companion Relationship Specialty Start Date End Date Beni Nguyen MD [address] [facility] 110 [place] [address] PCP - General Internal Medicine 01/02/23 Bein Nguyen MD [address] [facility] 110 [place] [address] PCP - ACO Reach 01/12/23 Anastasia Rayo LPN 112 [facility] 110 [place] [address] 11/08/24 documented as of this encounter
--- OUTSIDE RECORDS SUMMARY | 2025-05-07 13:47 | XMS_ITS | Encounter Summary ---
Author Organization [facility] Address [address] [place] [address] Care Team Providers Care Hotel Concierge Name Role Phone Beni Nguyen MD Primary Care Provider [phone] Beni Nguyen MD Unavailable [phone] Anastasia Rayo LPN Unavailable Encounter Details Date Type Department Care Team (Late st Contact Info) Description 02/27/2025 Abstract [facility] [place] [facility] [address] [facility] 110 [place] [address] Beni Nguyen MD 112 [facility] 110 [place] [address] Social History Tobacco Use Types Packs/Day Years [...] Patient Health Questionnaire-2 Score 2 02/18/2025 [facility] of Occupat ional Health [...] Upcoming Encounters Date Type Department Care Team ([facility] Contact Info) Description 07/03/2025 2:40 PM EST Procedure Visit [facility] [address] [facility] 120 [place] [address] Real Og DPM 3006 [facility] 5 [place] [address] documented as of this encounter Visit Diagnoses Not on filedocumented in this encounter Care Teams Hotel Concierge Relationship Specialty Start Date End Date Beni Nguyen MD [address] [facility] 110 [place] [address] PCP - General Internal Medicine 01/02/23 Beni Nguyen MD [address] [facility] 110 [place] [address] PCP - ACO Reach 01/12/23 Anastasia Rayo LPN 112 [facility] 110 [place] [address] 11/08/24 documented as of this encounter
--- OUTSIDE RECORDS SUMMARY | 2025-05-07 13:47 | XMS_ITS | Encounter Summary ---
Author Organization [facility] Address [address] [place] [address] Care Team Providers Care Laser Beam Cutter Name Role Phone Beni Nguyen MD Primary Care Provider [phone] Beni Nguyen MD Unavailable [phone] Anastasia Rayo LPN Unavailable Encounter Details Date Type Department Care Team (Late st Contact Info) Description 12/11/2024 Abstract [facility] [place] [facility] [address] [facility] 110 [place] [address] Beni Nguyen MD [address] [place] [facility] 110 [place] [address] Social History Tobacco Use Types Packs/Day Years [...] Recorded Patient Health Questionnaire-2 Score 0 12/05/2024 [facility] Occupat ional Health [...] Date Type Department Care Team ([facility] Contact Info) Description 07/03/2025 2:40 PM EST Procedure Visit [facility] [address] [facility] 120 [place] [address] Real Og DPM 3[address] [facility] 5 [place] [address] documented as of this encounter Visit Diagnoses Not on filedocumented in this encounter Care Teams Laser Beam Cutter Relationship Specialty Start Date End Date Beni Nguyen MD [address] [facility] 110 [place] [address] PCP - General Internal Medicine 01/02/23 Beni Nguyen MD [address] [facility] 110 [place] [address] PCP - ACO Reach 01/12/23 Anastasia Rayo LPN 112 [facility] 110 [place] [address] 11/08/24 documented as of this encounter
--- OUTSIDE RECORDS SUMMARY | 2025-05-07 13:47 | XMS_ITS | Encounter Summary ---
Author Organization [facility] Address [address] [place] [address] Care Team Providers Care Casino Investigator Name Role Phone Beni Nguyen MD Primary Care Provider [phone] Beni Nguyen MD Unavailable [phone] Anastasia Rayo LPN Unavailable Encounter Details Date Type Department Care Team (Late st Contact Info) Description 05/05/2025 Abstract [facility] [place] [facility] [address] [facility] 110 [place] [address] Beni Nguyen MD [address] [place] [facility] 110 [place] [address] Social History Tobacco Use Types Packs/Day Years [...] often do you attend chur ch or methodist services? Never 03/17/2023 Do you [...] Recorded Patient Health Questionnaire-2 Score 2 04/01/2025 [facility] Occupat ional Health - [...] Upcoming Encounters Date Type Department Care Team ([facility] Contact Info) Description 07/03/2025 2:40 PM EST Procedure Visit [facility] [address] [facility] 120 [place] [address] Real Og DPM 3006 [facility] 5 [place] [address] documented as of this encounter Visit Diagnoses Not on filedocumented in this encounter Care Teams Casino Investigator Relationship Specialty Start Date End Date Beni Nguyen MD [address] [facility] 110 [place] [address] PCP - General Internal Medicine 01/02/23 Beni Nguyen MD [address] [facility] 110 [place] [address] PCP - ACO Reach 01/12/23 Anastasia Rayo LPN 112 [facility] 110 [place] [address] 11/08/24 documented as of this encounter
--- OUTSIDE RECORDS SUMMARY | 2025-05-07 13:47 | XMS_ITS | Encounter Summary ---
Author Organization [facility] Address [address] [place] [address] Care Team Providers Care Tower Control Operator Name Role Phone Beni Nguyen MD Primary Care Provider [phone] Beni Nguyen MD Unavailable [phone] Anastasia Rayo LPN Unavailable Encounter Details Date Type Department Care Team (Late st Contact Info) Description 03/07/2025 Abstract [facility] [place] [facility] [address] [facility] 110 [place] [address] Beni Nguyen MD [address] [place] [facility] 110 [place] [address] Social History Tobacco Use Types Packs/Day Years [...] ([facility] Contact Info) Description 07/03/2025 2:40 PM EST Procedure Visit [facility] [address] [facility] 120 [place] [address] Real Og DPM 3006 [facility] 5 [place] [address] documented as of this encounter Visit Diagnoses Not on filedocumented in this encounter Care Teams Tower Control Operator Relationship Specialty Start Date End Date Beni Nguyen MD [address] [facility] 110 [place] [address] PCP - General Internal Medicine 01/02/23 Beni Nguyen MD [address] [facility] 110 [place] [address] PCP - ACO Reach 01/12/23 Anastasia Rayo LPN 112 [facility] 110 [place] [address] 11/08/24 documented as of this encounter
--- OUTSIDE RECORDS SUMMARY | 2025-05-07 13:47 | XMS_ITS | Encounter Summary ---
Author Organization [facility] Address [address] [place] [address] Phone Care Team Providers Care Dietetics Teacher Name Role Phone Beni Nguyen MD Primary Care Provider Encounter Details Date Type Department Care Team (Late st Contact Info) Description 06/10/2023 Scanned Document [facility] [address] [place] [address] Scanning, Generic Provider Social History Tobacco Use [...] Description 09/25/2025 2:10 PM EST Office Visit [facility] 703 [facility] [address] [place] [address] Juan C Hoover, 703 [facility], [address] [place], [place] [address] documented as of this encounter Visit Diagnoses Not on filedocumented in this encounter Care Teams Dietetics Teacher Relationship Specialty Start Date End Date Beni Nguyen MD [address] [facility] 110 [place] [address] PCP - General 05/18/23 documented as of this encounter
--- OUTSIDE RECORDS SUMMARY | 2025-05-07 13:47 | XMS_ITS | Encounter Summary ---
Author Organization [facility] Address [address] [place] [address] Care Team Providers Care Escalation Engineer Name Role Phone Beni Nguyen MD Primary Care Provider [phone] Beni Nguyen MD Unavailable [phone] Anastasia Rayo LPN Unavailable Encounter Details Date Type Department Care Team (Late st Contact Info) Description 12/31/2024 [facility] [place] [facility] [address] [facility] 110 [place] [address] Beni Nguyen MD 112 [facility] 110 [place] [address] Social History Tobacco Use Types Packs/Day Years [...] Recorded Patient Health Questionnaire-2 Score 0 12/05/2024 [facility]at [...] Care Team ([facility] Contact Info) Description 07/03/2025 2:40 PM EST Procedure Visit [facility] [address] [facility] 120 [place] [address] Real Og DPM 3006 [facility] 5 [place] [address] documented as of this encounter Visit Diagnoses Not on filedocumented in this encounter Care Teams Escalation Engineer Relationship Specialty Start Date End Date Beni Nguyen MD [address] [place] [address] [place] [address] PCP - General Internal Medicine 01/02/23 Beni Nguyen MD [address] [facility] 110 [place] [address] PCP - ACO Reach 01/12/23 Anastasia Rayo LPN 112 [facility] 110 [place] [address] 11/08/24 documented as of this encounter
--- OUTSIDE RECORDS SUMMARY | 2025-05-07 13:47 | XMS_ITS | Encounter Summary ---
Author Organization [facility] Address [address] [place] [address] Phone Care Team Providers Care Club Director Name Role Phone Beni Nguyen MD Primary Care Provider [phone] Encounter Details Date Type Department Care Team (Late st Contact Info) Description 08/18/2021 Orders Only [facility] [address] [place] [address] Conversion, Onbase Social History Tobacco Use Types [...] Office Visit [facility] 703 [facility] [address] [place] [address] Juan C Hoover, DO [address] [place] [address] Scheduled Orders Name Type Priority Associated Diagnoses Orde r Schedule OUTSIDE LAB SCAN Lab Ordered: 08/18/2021 documented as of this encounter Visit Diagnoses Not on filedocumented in this encounter Care Teams Club Director Relationship Specialty Start Date End Date Beni Nguyen MD [address] [facility] 110 [place] [address] PCP - General 05/18/23 documented as of this encounter
--- OUTSIDE RECORDS SUMMARY | 2025-05-07 13:47 | XMS_ITS | Encounter Summary ---
Author Organization [facility] Address [address] [place] [address] Care Team Providers Care Computer Graphic Artist Name Role Phone Beni Nguyen MD Primary Care Provider [phone] Beni Nguyen MD Unavailable [phone] Anastasia Rayo LPN Unavailable Encounter Details Date Type Department Care Team (Late st Contact Info) Description 12/31/2024 Abstract [facility] [place] [facility] [address] [facility] 110 [place] [address] Beni Nguyen MD 112 [facility] 110 [place] [address] Social History Tobacco Use Types Packs/Day Years [...] Recorded Patient Health Questionnaire-2 Score 0 12/05/2024 [facility] Occupat ional Health [...] Upcoming Encounters Date Type Department Care Team ([facility] Contact Info) Description 07/03/2025 2:40 PM EST Procedure Visit [facility] [address] [facility] 120 [place] [address] Real Og DPM 3006 [facility] 5 [place] [address] documented as of this encounter Visit Diagnoses Not on filedocumented in this encounter Care Teams Computer Graphic Artist Relationship Specialty Start Date End Date Beni Nguyen MD [address] [facility] 110 [place] [address] PCP - General Internal Medicine 01/02/23 Beni Nguyen MD [address] [facility] 110 [place] [address] PCP - ACO Reach 01/12/23 Anastasia Rayo LPN 112 [facility] 110 [place] [address] 11/08/24 documented as of this encounter
--- OUTSIDE RECORDS SUMMARY | 2025-05-07 13:47 | XMS_ITS | Encounter Summary ---
Author Organization [facility] Address [address] [place] [address] Care Team Providers Care Line Runner Name Role Phone Beni Nguyen MD Primary Care Provider [phone] Beni Nguyen MD Unavailable [phone] Anastasia Rayo LPN Unavailable Encounter Details Date Type Department Care Team (Latest Contact Info) Description 04/24/2025 Travel Social History Tobacco Use Types Packs/Day [...] Recorded Patient Health Questionnaire-2 Score 2 04/01/2025 [facility] of Occupat ional Health - Occupational Stress [...] Visit [facility] [address] [facility] 120 [place] [address] Real Og, DPM 3006 [facility] 5 [place] [address] documented as of this encounter Visit Diagnoses Not on filedocumented in this encounter Care Teams Line Runner Relationship Specialty Start Date End Date Beni Nguyen MD [address] [place] [address] PCP - General Internal Medicine 01/02/23 Beni Nguyen MD [address] [place] [address] [place] [address] PCP - ACO Reach 01/12/23 Anastasia Rayo LPN [address] [place] [address] 11/08/24 documented as of this encounter
--- OUTSIDE RECORDS SUMMARY | 2025-05-07 13:47 | XMS_ITS | Encounter Summary ---
Author Organization [facility] Address [address] [place] [address] Phone Care Team Providers Care Lard Maker Name Role Phone Beni Nguyen MD Primary Care Provider [phone] Encounter Details Date Type Department Care Team (Late st Contact Info) Description 09/13/2024 Scanned Document [facility] [address] [place] [id number] Scanning, Generic Provider Social History Tobacco Use [...] Description 09/25/2025 2:10 PM EST Office Visit [place] [address] [facility] [address] [place] [address] Juan C Hoover DO 703 [facility] 2, [address] [place] [address] documented as of this encounter Visit Diagnoses Not on filedocumented in this encounter Additional Health Concerns Assessment Noted Time A fall risk assessment has been complete d for the patient 09/20/2023 12:14 PM EST documented as of this encounter Care Teams Lard Maker Relationship Specialty Start Date End Date Beni Nguyen MD [address] [place] [address] PCP - General 05/18/23 documented as of this encounter
--- OUTSIDE RECORDS SUMMARY | 2025-05-07 13:47 | XMS_ITS | Encounter Summary ---
Author Organization [facility] Address [address] [place] [address] Care Team Providers Care Bank Messenger Name Role Phone Beni Nguyen MD Primary Care Provider [phone] Beni Nguyen MD Unavailable [phone] Anastasia Rayo LPN Unavailable Encounter Details Date Type Department Care Team (Late st Contact Info) Description 05/02/2025 Abstract [facility] [place] [facility] [address] [facility] 110 [place] [address] Beni Nguyen MD [address] [facility] 110 [place] [address] Social History Tobacco Use Types Packs/Day Years [...] any clubs o r organizations such as quaker groups, unions, fraternal or athletic groups, or [...] Recorded Patient Health Questionnaire-2 Score 2 04/01/2025 [facility] of Occupat ional [...] Upcoming Encounters Date Type Department Care Team ([facility] Contact Info) Description 07/03/2025 2:40 PM EST Procedure Visit [facility] [address] [facility] 120 [place] [address] Real Og DPM 3006 [facility] 5 [place] [address] documented as of this encounter Visit Diagnoses Not on filedocumented in this encounter Care Teams Bank Messenger Relationship Specialty Start Date End Date Beni Nguyen MD [address] [facility] 110 [place] [address] PCP - General Internal Medicine 01/02/23 Beni Nguyen MD [address] [facility] 110 [place] [address] PCP - ACO Reach 01/12/23 Anastasia Rayo LPN 112 [facility] 110 [place] [address] 11/08/24 documented as of this encounter
--- OUTSIDE RECORDS SUMMARY | 2025-05-07 13:47 | XMS_ITS | Clinical Summary ---
Author Organization [facility] Address [address] [place] [address] Phone Care Team Providers Care Medical Records Supervisor Name Role Phone Beni Nguyen MD Primary Care Provider [phone] Allergies Active Allergy Reactions Criticality Noted Date [...] capsule by mouth once daily. Active omega 1-ryj-mxj-fish oil 360 mg-108 mg- 180 mg-1,200 mg [...] healthy lifestyle choices on overall cardiovascular health. Immunizations Immunization Administration Dates Next Due Flu [...] Description 09/25/2025 2:10 PM EST Office Visit [facility] 703 [facility] [address] [place] [address] Juan C Hoover DO [address] [place] [address] Health Maintenance Due Date Last Done Comments Medicare Annual Wellness Visit (AWV) 1945 Diabetes Screening 1961 DTaP/Tdap/Td Vaccines (1 - Tdap) 1965 Zoster Vaccines (2 of 3) 07/03/2012 05/08/2012 RSV High Risk: (Elderly (60+) or Population) (1 - 1-dose 75+ series) 2018 Echocardiogram 05/16/2024 05/16/2023, 03/25/2020 COVID-19 Vaccine (3 - season) 2025 09/29/2023, 07/21/2022 Influenza Vaccine (#1) 2025 , 06/05/2024, 07/13/2022, [...] 169(H) 65 - 99 mg/dL [facility] Comment: Fasting reference interval For someone without known diabetes, a glucose value >125 mg/dL indicates that they may have diabetes and this should be confirmed with a follow-up test. UREA NITROGEN (BUN) 17 7 - 25 mg/dL [facility] CREATININE 1.03 0.70 - 1.22 mg/dL [facility] EGFR 73 > OR = 60 mL/min/1. 73m2 [facility] BUN/CREATININE RATIO SEE NOTE: 6 - 22 (calc) [facility] Comment: Not Reported: BUN and Creatinine are within reference range. SODIUM 142 135 - 146 mmol/L [facility] POTASSIUM 3.6 3.5 - 5.3 mmol/L [facility] CHLORIDE 101 98 - 110 mmol/L [facility] CARBON DIOXIDE 29 20 - 32 mmol/L [facility] ELECTROLYTE BALANCE 12 7 - 17 mmol/L (calc) [facility] CALCIUM 9.1 8.6 - 10.3 mg/dL [facility] Blood Venous blood specimen / Unknown 11/08/2024 10:26 AM EDT 11/08/2024 10:27 AM EDT us Melonie Rizvi INSURANCE OPERATIONS REP-MENTAL HEALTH PROGRAM DIRECTOR LAB BLOOD ORDERABLES Julianna ambrocio Result Monitor [facility] 875 [facility], 4 [place] [address] * ECHOCARDIOGRAM (05/16/2023) Narrative 05/16/2023 Ordered by an unspecified provider. us Onbase Conversion CV ECHO PROCEDURES Final Resul t from Last 3 Months or Most Recently Relevant to Health Maintenance Insurance MEDICARE PART A AND B [facility] Care Teams Medical Records Supervisor Relationship Specialty Start Date End Date Beni Nguyen MD [address] [place] [address] PCP - General 05/18/23
--- OUTSIDE RECORDS SUMMARY | 2025-05-07 13:47 | XMS_ITS | Encounter Summary ---
Author Organization [facility] Address [address] [place] [address] Phone Care Team Providers Care Striper Name Role Phone Beni Nguyen MD Primary Care Provider [phone] Encounter Details Date Type Department Care Team (Late st Contact Info) Description 05/16/2023 Scanned Document [facility] [address] [place] [address] Conversion, Onbase Social History Tobacco Use Types [...] Description 09/25/2025 2:10 PM EST Office Visit [facility] [address] [place] [address] Juan C Hoover [address] [place] [address] documented as of this encounter Procedures Procedure Name Priority Date/Time Associated Diagnosis Comments ECHOCARDIOGRAM 05/16/2023 documented in this encounter Results * ECHOCARDIOGRAM (05/16/2023) Narrative 05/16/2023 Ordered by an unspecified provider. us Onbase Conversion CV ECHO PROCEDURES Final Resul t documented in this encounter Visit Diagnoses Not on filedocumented in this encounter Care Teams Striper Relationship Specialty Start Date End Date Beni Nguyen MD [address] [address] PCP - General 05/18/23 documented as of this encounter
--- OUTSIDE RECORDS SUMMARY | 2025-05-07 13:47 | XMS_ITS | Encounter Summary ---
Author Organization [facility] Address [address] [place] [address] Care Team Providers Care Chief Pharmacist Name Role Phone Beni Nguyen MD Primary Care Provider [phone] Beni Nguyen MD Unavailable [phone] Anastasia Rayo LPN Unavailable Encounter Details Date Type Department Care Team (Late st Contact Info) Description 04/23/2025 Abstract [facility] [place] [facility] [address] [facility] 110 [place] [address] Beni Nguyen MD 112 [facility] 110 [place] [address] Social History Tobacco Use Types Packs/Day Years [...] often do you attend chur ch or muslim services? Never 03/17/2023 Do you [...] Recorded Patient Health Questionnaire-2 Score 2 04/01/2025 [facility] of Occupat ional Health [...] Upcoming Encounters Date Type Department Care Team ([facility] Contact Info) Description 07/03/2025 2:40 PM EST Procedure Visit [facility] [address] [facility] 120 [place] [address] Real Og DPM 3006 [facility] 5 [place] [address] documented as of this encounter Visit Diagnoses Not on filedocumented in this encounter Care Teams Chief Pharmacist Relationship Specialty Start Date End Date Beni Nguyen MD [address] [facility] 110 [place] [address] PCP - General Internal Medicine 01/02/23 Beni Nguyen MD [address] [facility] 110 [place] [address] PCP - ACO Reach 01/12/23 Anastasia Rayo LPN 112 [facility] 110 [place] [address] 11/08/24 documented as of this encounter
--- OUTSIDE RECORDS SUMMARY | 2025-05-07 13:47 | XMS_ITS | Encounter Summary ---
Author Organization [facility] Address [address] [place] [address] Care Team Providers Care Marketing Strategy Manager Name Role Phone Beni Nguyen MD Primary Care Provider [phone] Beni Nguyen MD Unavailable [phone] Anastasia Rayo LPN Unavailable Encounter Details Date Type Department Care Team (Late st Contact Info) Description 03/18/2025 Abstract [facility] [place] [facility] [address] [facility] 110 [place] [address] Beni Nguyen MD [address] [facility] 110 [place] [address] Social History Tobacco Use Types Packs/Day Years [...] Recorded Patient Health Questionnaire-2 Score 2 02/18/2025 [facility] of Occupat ional Health - [...] Encounters Date Type Department Care Team ([facility] Contact Info) Description 07/03/2025 2:40 PM EST Procedure Visit [facility] [address] [facility] 120 [place] [address] Real Og DPM 3006 [facility] 5 [place] [address] documented as of this encounter Visit Diagnoses Not on filedocumented in this encounter Care Teams Marketing Strategy Manager Relationship Specialty Start Date End Date Beni Nguyen MD [address] [facility] 110 [place] [address] PCP - General Internal Medicine 01/02/23 Beni Nguyen MD [address] [facility] 110 [place] [address] PCP - ACO Reach 01/12/23 Anastasia Rayo LPN 112 [facility] 110 [place] [address] 11/08/24 documented as of this encounter
--- OUTSIDE RECORDS SUMMARY | 2025-05-07 13:47 | XMS_ITS | Encounter Summary ---
Author Organization [facility] Address [address] [place] [address] Care Team Providers Care Table Inspector Name Role Phone Beni Nguyen MD Primary Care Provider [phone] Beni Nguyen MD Unavailable [phone] Anastasia Rayo LPN Unavailable Encounter Details Date Type Department Care Team (Late st Contact Info) Description 05/05/2025 Abstract [facility] [place] [facility] [address] [facility] 110 [place] [address] Beni Nguyen MD 112 [facility] 110 [place] [address] Social History Tobacco Use Types Packs/Day Years [...] Recorded Patient Health Questionnaire-2 Score 2 04/01/2025 [facility] of Occupat ional Health - Occupational [...] Team ([facility] Contact Info) Description 07/03/2025 2:40 PM EST Procedure Visit [facility] [address] [facility] 120 [place] [address] Real Og DPM 3006 [facility] 5 [place] [address] documented as of this encounter Visit Diagnoses Not on filedocumented in this encounter Care Teams Table Inspector Relationship Specialty Start Date End Date Beni Nguyen MD [address] [facility] 110 [place] [address] PCP - General Internal Medicine 01/02/23 Beni Nguyen MD [address] [facility] 110 [place] [address] PCP - ACO Reach 01/12/23 Anastasia Rayo LPN 112 [facility] 110 [place] [address] 11/08/24 documented as of this encounter
--- OUTSIDE RECORDS SUMMARY | 2025-05-07 13:47 | XMS_ITS | Encounter Summary ---
Author Organization [facility] Address [address] [place] [address] Care Team Providers Care Supervisor Counseling And Guidance Name Role Phone Beni Nguyen MD Primary Care Provider [phone] Beni Nguyen MD Unavailable [phone] Anastasia Rayo LPN Unavailable Encounter Details Date Type Department Care Team (Late st Contact Info) Description 04/17/2025 Abstract [facility] [place] [facility] [address] [facility] 110 [place] [address] Beni Nguyen MD 112 [facility] 110 [place] [address] Social History Tobacco Use Types Packs/Day Years [...] Recorded Patient Health Questionnaire-2 Score 2 04/01/2025 [facility] of Occupat ional Health [...] [facility] Contact Info) Description 07/03/2025 2:40 PM EST Procedure Visit [facility] [address] [facility] 120 [place] [address] Real Og DPM 3006 [facility] 5 [place] [address] documented as of this encounter Visit Diagnoses Not on filedocumented in this encounter Care Teams Supervisor Counseling And Guidance Relationship Specialty Start Date End Date Beni Nguyen MD [address] [facility] 110 [place] [address] PCP - General Internal Medicine 01/02/23 Beni Nguyen MD [address] [facility] 110 [place] [address] PCP - ACO Reach 01/12/23 Anastasia Rayo LPN 112 [facility] 110 [place] [address] 11/08/24 documented as of this encounter
--- OUTSIDE RECORDS SUMMARY | 2025-05-07 13:47 | XMS_ITS | Encounter Summary ---
Author Organization [facility] Address [address] [place] [address] Care Team Providers Care Die Cutter Apprentice Name Role Phone Beni Nguyen MD Primary Care Provider [phone] Beni Nguyen MD Unavailable Anastasia Rayo LPN Unavailable Encounter Details Date Type Department Care Team ([facility] st Contact Info) Description 04/24/2025 Bamboo flowsheet [facility] 112 [facility] 120 [place] [address] Real Og, DPM 300 [facility] 5 [place] [address] Social History Tobacco Use Types [...] any clubs o r organizations such as bahai groups, unions, fraternal or athletic groups, or [...] Recorded Patient Health Questionnaire-2 Score 2 04/01/2025 [facility] of Occupat [...] Procedure Visit [facility] [address] [facility] 120 [place] [address] Real Og DPM 3006 [facility] 5 [place] [address] documented as of this encounter Visit Diagnoses Not on filedocumented in this encounter Care Teams Die Cutter Apprentice Relationship Specialty Start Date End Date Beni Nguyen MD [address] [facility] 110 [place] [address] PCP - General Internal Medicine 01/02/23 Beni Nguyen MD [address] [facility] 110 [place] [address] PCP - ACO Reach 01/12/23 Anastasia Rayo, ALETHA [address] [facility] 110 [place] [address] 11/08/24 documented as of this encounter
--- OUTSIDE RECORDS SUMMARY | 2025-05-07 13:47 | XMS_ITS | Encounter Summary ---
Author Organization [facility] Address [address] [place] [address] Care Team Providers Care Wheel Fitter Name Role Phone Beni Nguyen MD Primary Care Provider [phone] Beni Nguyen MD Unavailable [phone] Anastasia Rayo LPN Unavailable Encounter Details Date Type Department Care Team (Late st Contact Info) Description 01/08/2025 Abstract [facility] [place] [facility] [address] [facility] 110 [place] [address] Beni Nguyen MD 112 [facility] 110 [place] [address] Social History Tobacco Use Types Packs/Day Years [...] Patient Health Questionnaire-2 Score 0 12/05/2024 [facility] of Occupat ional Health [...] Date Type Department Care Team ([facility] Contact Info) Description 07/03/2025 2:40 PM EST Procedure Visit [facility] [address] [facility] 120 [place] [address] Real Og DPM 3006 [facility] 5 [place] [address] documented as of this encounter Visit Diagnoses Not on filedocumented in this encounter Care Teams Wheel Fitter Relationship Specialty Start Date End Date Beni Nguyen MD [address] [facility] 110 [place] [address] PCP - General Internal Medicine 01/02/23 Beni Nguyen MD [address] [facility] 110 [place] [address] PCP - ACO Reach 01/12/23 Anastasia Rayo LPN 112 [facility] 110 [place] [address] 11/08/24 documented as of this encounter
--- OUTSIDE RECORDS SUMMARY | 2025-05-07 13:47 | XMS_ITS | Encounter Summary ---
Author Organization [facility] Address [address] [place] [address] Care Team Providers Care Double End Sewer Name Role Phone Patrick ARMENTA MD, Beni Hamlin Primary Care Provider [phone] Source Comments In the event this information is protected by the Federal Confidentiality of Alcohol and Drug AbusePatient Records regulations: The Federal rules restrict any use of the information to criminally investigate or prosecute any alcohol or drug abuse patient.[facility] Encounter Details Date Type Department Care [...] on filedocumented in this encounter Care Teams Double End Sewer Relationship Specialty Start Date End Date Beni Nguyen II, MD [address] [place] [address] PCP - General Internal Medicine 12/05/16 documented as of this encounter
--- OUTSIDE RECORDS SUMMARY | 2025-05-07 13:47 | XMS_ITS | Encounter Summary ---
Author Organization [facility] Address [address] [place] [address] Phone Care Team Providers Care Tariff Inspector Name Role Phone Beni Nguyen MD Primary Care Provider [phone] Encounter Details Date Type Department Care Team (Late st Contact Info) Description 07/31/2023 Scanned Document [facility] [address] [place] [phone] Scanning, Generic Provider Social History Tobacco Use [...] 09/25/2025 2:10 PM EST Office Visit [facility] [address] [facility] [address] [place] [address] Juan C Hoover, 703 [facility] 2, [address] [place], [place] [phone] documented as of this encounter Visit Diagnoses Not on filedocumented in this encounter Care Teams Tariff Inspector Relationship Specialty Start Date End Date Beni Nguyen MD [address] [facility] 110 [place] [address] PCP - General 05/18/23 documented as of this encounter
--- OUTSIDE RECORDS SUMMARY | 2025-05-07 13:48 | XMS_ITS | Encounter Summary ---
Author Organization [facility] Address [address] [place] [address] Care Team Providers Care Weigher And Mixer Name Role Phone Beni Nguyen MD Primary Care Provider Beni Nguyen MD Unavailable [phone] Esther Connolly RN Unavailable Anastasia Rayo LPN Unavailable Encounter Details Date Type Department Care Team (Late st Contact Info) Description 10/31/2024 Abstract [facility] [place] [facility] [address] [facility] 110 [place] [address] Beni Nguyen MD 112 [facility] 110 [place] [address] Social History Tobacco Use Types Packs/Day Years [...] Recorded Patient Health Questionnaire-2 Score 0 10/29/2024 [facility]at [facility] [...] [facility] st Contact Info) Description 07/03/2025 2:40 PM EST Procedure Visit [facility] 112 [facility] 120 [place] [address] Real Og DPM 3006 [facility] 5 [place] [address] documented as of this encounter Visit Diagnoses Not on filedocumented in this encounter Care Teams Weigher And Mixer Relationship Specialty Start Date End Date Beni Nguyen MD 112 [facility] 110 [place] [address] PCP - General Internal Medicine 01/02/23 Beni Nguyen MD 112 [facility] 110 [place] [address] PCP - ACO Reach 01/12/23 Esther Connolly, HEATHER [address] [place], [place] [address] Clinical Advocate Family Medicine 09/27/24 11/08/24 Anastasia Rayo LPN 112 [place] [facility] 110 [place] [address] 11/08/24 documented as of this encounter
--- OUTSIDE RECORDS SUMMARY | 2025-05-07 13:48 | XMS_ITS | Encounter Summary ---
Author Organization [facility] Address [address] [place] [address] Care Team Providers Care Stock Counter Name Role Phone Beni Nguyen MD Primary Care Provider [phone] Beni Nguyen MD Unavailable [phone] Esther Connolly RN Unavailable Anastasia Rayo LPN Unavailable Encounter Details Date Type Department Care Team (Late st Contact Info) Description 05/23/2023 Abstract [facility] [place] [facility] [address] [facility] 110 [place] [address] Beni Nguyen MD 112 [facility] 110 [place] [address] Social History Tobacco Use Types Packs/Day Years [...] and heating? Not hard at all 03/17/2023 [facility]at ional [...] ([facility] st Contact Info) Description 07/03/2025 2:40 PM EST Procedure Visit [facility] 112 [facility] 120 [place] [address] Real Og, DPM 3006 [facility] 5 [place] [address] documented as of this encounter Visit Diagnoses Not on filedocumented in this encounter Care Teams Stock Counter Relationship Specialty Start Date End Date Beni Nguyen MD 112 [facility] 110 [place] [address] PCP - General Internal Medicine 01/02/23 Beni Nguyen MD [address] [facility] 110 [place] [address] PCP - ACO Reach 01/12/23 Esther Connolly RN [address] [place], [place] [address] Clinical Advocate Family Medicine 09/27/24 11/08/24 Anastasia Rayo LPN [address] [address] 11/08/24 documented as of this encounter
--- OUTSIDE RECORDS SUMMARY | 2025-05-07 13:48 | XMS_ITS | Encounter Summary ---
Author Organization [facility] Address [address] [place] [address] Care Team Providers Care Signals Collector/Analyst Name Role Phone Beni Nguyen MD Primary Care Provider [phone] Beni Nguyen MD Unavailable [phone] Esther Connolly RN Unavailable Anastasia Rayo LPN Unavailable Encounter Details Date Type Department Care Team (Late st Contact Info) Description 05/11/2023 Orders Only [facility] [place] [facility] [address] [facility] 110 [place] [address] A, Unknown Practice 1300 [place] [address] Social History Tobacco Use Types Packs/Day Years [...] EST Procedure Visit [facility] 112 [facility] 120 [place] [address] Real [place] DPM 3006 [facility] 5 [place] [address] documented as of this encounter Procedures Procedure [...] on filedocumented in this encounter Care Teams Signals Collector/Analyst Relationship Specialty Start Date End Date Beni Nguyen MD 112 [facility] 110 [place] [address] PCP - General Internal Medicine 01/02/23 Beni Nguyen MD [address] [facility] 110 [place] [address] PCP - ACO Reach 01/12/23 Esther Connolly, RN [address] [place] [address] Clinical Advocate Family Medicine 09/27/24 11/08/24 Anastasia Rayo LPN [address] [facility] 110 [place] [address] 11/08/24 documented as of this encounter
--- OUTSIDE RECORDS SUMMARY | 2025-05-07 13:48 | XMS_ITS | Encounter Summary ---
Author Organization [facility] Address [address] [place] [address] Care Team Providers Care Mulcher Operator Name Role Phone Beni Nguyen MD Primary Care Provider [phone] Beni Nguyen MD Unavailable [phone] Esther Connolly RN Unavailable Anastasia Rayo LPN Unavailable Encounter Details Date Type Department Care Team (Late st Contact Info) Description 05/23/2023 Abstract [facility] [place] [facility] [address] [facility] 110 [place] [address] Beni Nguyen MD 112 [facility] 110 [place] [address] Social History Tobacco Use Types Packs/Day Years [...] often do you attend chur ch or alevism services? Never 03/17/2023 Do you [...] Not hard at all 03/17/2023 [facility] of Occupat ional Health [...] EST Procedure Visit [facility] 112 [facility] 120 [place] [address] Real [place], DPM 3006 [facility] 5 [place] [address] documented as of this encounter Visit Diagnoses Not on filedocumented in this encounter Care Teams Mulcher Operator Relationship Specialty Start Date End Date Beni Nguyen MD 112 [place] [facility] 110 [place] [address] PCP - General Internal Medicine 01/02/23 Beni Nguyen MD [address] [facility] 110 [place] [address] PCP - ACO Reach 01/12/23 Esther Connolly RN [address] [place], [place] [address] Clinical Advocate Family Medicine 09/27/24 11/08/24 Anastasia Rayo LPN [address] [address] 11/08/24 documented as of this encounter
--- OUTSIDE RECORDS SUMMARY | 2025-05-07 13:48 | XMS_ITS | Encounter Summary ---
Author Organization [facility] Address [address] [place] [address] Care Team Providers Care Director Security Risk Management Name Role Phone Beni Nguyen MD Primary Care Provider [phone] Beni Nguyen MD Unavailable [phone] Esther Connolly RN Unavailable Anastasia Rayo LPN Unavailable Encounter Details Date Type Department Care Team (Late st Contact Info) Description 01/31/2024 Abstract [facility] [place] [facility] [address] [facility] 110 [place] [address] Beni Nguyen MD 112 [facility] 110 [place] [address] Social History Tobacco Use Types Packs/Day Years [...] Score 0 10/05/2023 [facility] [...] Visit [facility] [address] [facility] 120 [place] [address] Real [place], DPM 3006 [facility] 5 [place] [address] documented as of this encounter Visit Diagnoses Not on filedocumented in this encounter Care Teams Director Security Risk Management Relationship Specialty Start Date End Date Beni Nguyen MD [address] [facility] 110 [place] [address] PCP - General Internal Medicine 01/02/23 Beni Nguyen MD [address] [facility] 110 [place] [address] PCP - ACO Reach 01/12/23 Esther Connolly, RN [address] [place] [address] Clinical Advocate Family Medicine 09/27/24 11/08/24 Anastasia Rayo LPN [address] [address] 11/08/24 documented as of this encounter
--- OUTSIDE RECORDS SUMMARY | 2025-05-07 13:48 | XMS_ITS | Encounter Summary ---
Author Organization [facility] Address [address] [place] [address] Care Team Providers Care Flexo Press Operator Name Role Phone Beni Nguyen MD Primary Care Provider [phone] Beni Nguyen MD Unavailable [phone] Esther Connolly RN Unavailable Anastasia Rayo LPN Unavailable Encounter Details Date Type Department Care Team (Late st Contact Info) Description 05/11/2023 Abstract [facility] [place] [facility] [address] [facility] 110 [place] [address] Beni Nguyen MD 112 [facility] 110 [place] [address] Social History Tobacco Use Types Packs/Day Years [...] often do you attend chur ch or latter-day services? Never 03/17/2023 Do you [...] [facility] Contact Info) Description 07/03/2025 2:40 PM EST Procedure Visit [facility] 112 [facility] 120 [place] [address] Real [place], DPM 3006 [facility] 5 [place] [address] documented as of this encounter Visit Diagnoses Not on filedocumented in this encounter Care Teams Flexo Press Operator Relationship Specialty Start Date End Date Beni Nguyen MD 112 [place] [facility] 110 [place] [address] PCP - General Internal Medicine 01/02/23 Beni Nguyen MD [address] [facility] 110 [place] [address] PCP - ACO Reach 01/12/23 Esther Connolly RN [address] [place], [place] [address] Clinical Advocate Family Medicine 09/27/24 11/08/24 Anastasia Rayo LPN [address] [address] 11/08/24 documented as of this encounter
--- OUTSIDE RECORDS SUMMARY | 2025-05-07 13:48 | XMS_ITS | Encounter Summary ---
Author Organization [facility] Address [address] [place] [address] Care Team Providers Care Content Editor Name Role Phone Beni Nguyen MD Primary Care Provider [phone] Beni Nguyen MD Unavailable [phone] Esther Connolly RN Unavailable Anastasia Rayo LPN Unavailable Encounter Details Date Type Department Care Team (Late st Contact Info) Description 05/11/2023 Abstract [facility] [place] [facility] [address] [facility] 110 [place] [address] Beni Nguyen MD 112 [facility] 110 [place] [address] Social History Tobacco Use Types Packs/Day Years [...] and heating? Not hard at all 03/17/2023 [facility] of Occupat ional [...] ([facility] st Contact Info) Description 07/03/2025 2:40 PM EST Procedure Visit [facility] 112 [facility] 120 [place] [address] Real Og, DPM 3006 [facility] 5 [place] [address] documented as of this encounter Visit Diagnoses Not on filedocumented in this encounter Care Teams Content Editor Relationship Specialty Start Date End Date Beni Nguyen MD 112 [place] [facility] 110 [place] [address] PCP - General Internal Medicine 01/02/23 Beni Nguyen MD [address] [facility] 110 [place] [address] PCP - ACO Reach 01/12/23 Esther Connolly RN [address] [place], [place] [address] Clinical Advocate Family Medicine 09/27/24 11/08/24 Anastasia Rayo LPN [address] [address] 11/08/24 documented as of this encounter
--- OUTSIDE RECORDS SUMMARY | 2025-05-07 13:48 | XMS_ITS | Encounter Summary ---
Author Organization [facility] Address [address] [place] [address] Care Team Providers Care Information Systems Specialist Name Role Phone Beni Nguyen MD Primary Care Provider [phone] Beni Nguyen MD Unavailable [phone] Esther Connolly RN Unavailable Anastasia Rayo LPN Unavailable Encounter Details Date Type Department Care Team (Late st Contact Info) Description 05/11/2023 Abstract [facility] [place] [facility] [address] [facility] 110 [place] [address] Beni Nguyen MD 112 [facility] 110 [place] [address] Social History Tobacco Use Types Packs/Day Years [...] Upcoming Encounters Date Type Department Care Team ([facility] st Contact Info) Description 07/03/2025 2:40 PM EST Procedure Visit [facility] [address] [facility] 120 [place] [address] Real Og, DPM 3006 [facility] 5 [place] [address] documented as of this encounter Visit Diagnoses Not on filedocumented in this encounter Care Teams Information Systems Specialist Relationship Specialty Start Date End Date Beni Nguyen MD 112 [place] [facility] 110 [place] [address] PCP - General Internal Medicine 01/02/23 Beni Nguyen MD [address] [facility] 110 [place] [address] PCP - ACO Reach 01/12/23 Esther Connolly RN [address] [place], [place] [address] Clinical Advocate Family Medicine 09/27/24 11/08/24 Anastasia Rayo LPN [address] [address] 11/08/24 documented as of this encounter
--- OUTSIDE RECORDS SUMMARY | 2025-05-07 13:48 | XMS_ITS | Encounter Summary ---
Author Organization [facility] Address [address] [place] [address] Phone Care Team Providers Care Leasing Manager Name Role Phone Beni Nguyen MD Primary Care Provider [phone] Encounter Details Date Type Department Care Team (Late st Contact Info) Description 10/14/2024 Scanned Document [facility] [address] [place] [address] Scanning, Generic Provider Social History Tobacco Use [...] 2:10 PM EST Office [facility] 703 [facility] [address] [place] [address] Juan C Hoover DO 703 [facility] 2, [address] [place] [address] documented as of this encounter [...] documented as of this encounter Care Teams Leasing Manager Relationship Specialty Start Date End Date Beni Nguyen MD 112 [place] [address] PCP - General 05/18/23 documented as of this encounter
--- OUTSIDE RECORDS SUMMARY | 2025-05-07 13:48 | XMS_ITS | Encounter Summary ---
Author Organization [facility] Address [address] [place] [address] Care Team Providers Care Food Order Delivery Runner Name Role Phone Beni Nguyen MD Primary Care Provider [phone] Beni Nguyen MD Unavailable [phone] Esther Connolly RN Unavailable Anastasia Rayo LPN Unavailable Encounter Details Date Type Department Care Team (Late st Contact Info) Description 10/31/2024 Abstract [facility] [place] [facility] [address] [facility] 110 [place] [address] Beni Nguyen MD 112 [facility] 110 [place] [address] Social History Tobacco Use Types Packs/Day Years [...] Recorded Patient Health Questionnaire-2 Score 0 10/29/2024 [facility] of Occupat ional Health [...] Upcoming Encounters Date Type Department Care Team ([facility] st Contact Info) Description 07/03/2025 2:40 PM EST Procedure Visit [facility] 112 [facility] 120 [place] [address] Real Og DPM 3006 [facility] 5 [place] [address] documented as of this encounter Visit Diagnoses Not on filedocumented in this encounter Care Teams Food Order Delivery Runner Relationship Specialty Start Date End Date Beni Nguyen MD 112 [facility] 110 [place] [address] PCP - General Internal Medicine 01/02/23 Beni Nguyen MD 112 [facility] 110 [place] [address] PCP - ACO Reach 01/12/23 Esther Connolly, HEATHER [address] [place], [place] [address] Clinical Advocate Family Medicine 09/27/24 11/08/24 Anastasia Rayo LPN 112 [facility] 110 [place] [address] 11/08/24 documented as of this encounter
--- OUTSIDE RECORDS SUMMARY | 2025-05-07 13:48 | XMS_ITS | Encounter Summary ---
Author Organization [facility] Address [address] [place] [address] Care Team Providers Care Floor Polisher Name Role Phone Beni Nguyen MD Primary Care Provider [phone] Beni Nguyen MD Unavailable [phone] Anastasia Rayo LPN Unavailable Encounter Details Date Type Department Care Team (Late st Contact Info) Description 02/14/2025 Abstract [facility] [place] [facility] [address] [facility] 110 [place] [address] Beni Nguyen MD 112 [place] [facility] 110 [place] [address] Social History Tobacco Use Types Packs/Day Years [...] Patient Health Questionnaire-2 Score 2 02/18/2025 [facility] of Occupat ional Health [...] Encounters Date Type Department Care Team ([facility] Contact Info) Description 07/03/2025 2:40 PM EST Procedure Visit [facility] [address] [facility] 120 [place] [address] Real Og DPM 3006 [facility] 5 [place] [address] documented as of this encounter Visit Diagnoses Not on filedocumented in this encounter Care Teams Floor Polisher Relationship Specialty Start Date End Date Beni Nguyen MD [address] [facility] 110 [place] [address] PCP - General Internal Medicine 01/02/23 Beni Nguyen MD [address] [facility] 110 [place] [address] PCP - ACO Reach 01/12/23 Anastasia Rayo LPN 112 [facility] 110 [place] [address] 11/08/24 documented as of this encounter
--- OUTSIDE RECORDS SUMMARY | 2025-05-07 13:48 | XMS_ITS | Encounter Summary ---
Author Organization [facility] Address [address] [place] [address] Care Team Providers Care Lead Software Engineer Name Role Phone Beni Nguyen MD Primary Care Provider [phone] Beni Nguyen MD Unavailable [phone] Esther Connolly RN Unavailable [phone] Anastasia Rayo LPN Unavailable Encounter Details Date Type Department Care Team (Late st Contact Info) Description 05/24/2023 Abstract [facility] [place] [facility] [address] [facility] 110 [place] [address] Beni Nguyen MD 112 [facility] 110 [place] [address] Social History Tobacco Use Types Packs/Day Years [...] often do you attend chur ch or synagogue services? Never 03/17/2023 Do you [...] ([facility] st Contact Info) Description 07/03/2025 2:40 PM EST Procedure Visit [facility] 112 [facility] 120 [place] [address] Real Og, DPM 3006 [facility] 5 [place] [address] documented as of this encounter Visit Diagnoses Not on filedocumented in this encounter Care Teams Lead Software Engineer Relationship Specialty Start Date End Date Beni Nguyen MD [address] [place] [facility] 110 [place] [address] PCP - General Internal Medicine 01/02/23 Beni Nguyen MD [address] [facility] 110 [place] [address] PCP - ACO Reach 01/12/23 Esther Connolly RN [address] [place], [place] [address] Clinical Advocate Family Medicine 09/27/24 11/08/24 Anastasia Rayo LPN [address] [address] 11/08/24 documented as of this encounter
--- OUTSIDE RECORDS SUMMARY | 2025-05-07 13:48 | XMS_ITS | Encounter Summary ---
Author Organization [facility] Address [address] [place] [address] Care Team Providers Care Running Rigger Name Role Phone Beni Nguyen MD Primary Care Provider [phone] Beni Nguyen MD Unavailable [phone] Anastasia Rayo LPN Unavailable Encounter Details Date Type Department Care Team (Late st Contact Info) Description 02/24/2025 Abstract [facility] [place] [facility] [address] [facility] 110 [place] [address] Beni Nguyen MD 112 [place] [facility] 110 [place] [address] Social History Tobacco Use Types Packs/Day Years [...] often do you attend chur ch or gnosticist services? Never 03/17/2023 Do you [...] Questionnaire-2 Score 2 02/18/2025 [facility] of Occupat [...] Upcoming Encounters Date Type Department [facility] Description 07/03/2025 2:40 PM EST Procedure Visit [facility] [address] [facility] 120 [place] [address] Real Og DPM 3006 [facility] 5 [place] [address] documented as of this encounter Visit Diagnoses Not on filedocumented in this encounter Care Teams Running Rigger Relationship Specialty Start Date End Date Beni Nguyen MD [address] [facility] 110 [place] [address] PCP - General Internal Medicine 01/02/23 Beni Nguyen MD [address] [facility] 110 [place] [address] PCP - ACO Reach 01/12/23 Anastasia Rayo LPN 112 [facility] 110 [place] [address] 11/08/24 documented as of this encounter
--- OUTSIDE RECORDS SUMMARY | 2025-05-07 13:48 | XMS_ITS | Encounter Summary ---
Author Organization [facility] Address [address] [place] [address] Care Team Providers Care Cognos Bi Developer Name Role Phone Beni Nguyen MD Primary Care Provider [phone] Beni Nguyen MD Unavailable [phone] Anastasia Rayo LPN Unavailable Encounter Details Date Type Department Care Team (Late st Contact Info) Description 02/14/2025 Abstract [facility] [place] [facility] [address] [facility] 110 [place] [address] Beni Nguyen MD 112 [place] 110 [place] [address] Social History Tobacco Use Types Packs/Day Years [...] Upcoming Encounters Date Type Department Care Team ([facility] Contact Info) Description 07/03/2025 2:40 PM EST Procedure Visit [facility] [address] [facility] 120 [place] [address] Real Og DPM 3006 [facility] 5 [place] [address] documented as of this encounter Visit Diagnoses Not on filedocumented in this encounter Care Teams Cognos Bi Developer Relationship Specialty Start Date End Date Beni Nguyen MD [address] [facility] 110 [place] [address] PCP - General Internal Medicine 01/02/23 Beni Nguyen MD [address] [facility] 110 [place] [address] PCP - ACO Reach 01/12/23 Anastasia Rayo LPN 112 [facility] 110 [place] [address] 11/08/24 documented as of this encounter
--- OUTSIDE RECORDS SUMMARY | 2025-05-07 13:48 | XMS_ITS | Encounter Summary ---
Author Organization [facility] Address [address] [place] [address] Care Team Providers Care Sales Promoter Name Role Phone Beni Nguyen MD Primary Care Provider [phone] Beni Nguyen MD Unavailable [phone] Esther Connolly RN Unavailable Anastasia Rayo LPN Unavailable Encounter Details Date Type Department Care Team (Late st Contact Info) Description 05/11/2023 Abstract [facility] [address] [facility] 110 [place] [address] Beni Nguyen MD 112 [facility] 110 [place] [address] Social History Tobacco Use Types Packs/Day Years [...] and heating? Not hard at all 03/17/2023 [facility] Occupat ional [facility] [...] Upcoming Encounters Date Type Department Care Team ([facility] st Contact Info) Description 07/03/2025 2:40 PM EST Procedure Visit [facility] 112 [facility] 120 [place] [address] Real Og, DPM 3006 [facility] 5 [place] [address] documented as of this encounter Visit Diagnoses Not on filedocumented in this encounter Care Teams Sales Promoter Relationship Specialty Start Date End Date Beni Nguyen MD 112 [place] [facility] 110 [place] [address] PCP - General Internal Medicine 01/02/23 Beni Nguyen MD [address] [facility] 110 [place] [address] PCP - ACO Reach 01/12/23 Esther Connolly RN [address] [place], [place] [address] Clinical Adv[facility] Family Medicine 09/27/24 11/08/24 Anastasia Rayo LPN [address] [address] 11/08/24 documented as of this encounter
--- OUTSIDE RECORDS SUMMARY | 2025-05-07 13:48 | XMS_ITS | Encounter Summary ---
Author Organization [facility] Address [address] [place] [address] Care Team Providers Care Bin Filler Name Role Phone Beni Nguyen MD Primary Care Provider [phone] Beni Nguyen MD Unavailable [phone] Esther Connolly RN Unavailable [phone] Anastasia Rayo LPN Unavailable Encounter Details [...] often do you attend chur ch or druze services? Never 03/17/2023 Do you [...] Patient Health Questionnaire-2 Score 0 10/05/2023 [facility] of Occupat ional [...] [facility] Contact Info) Description 07/03/2025 2:40 PM EST Procedure Visit [facility] 112 [facility] 120 [place] [address] Real Og DPM 3006 [facility] 5 [place] [address] documented as of this encounter Procedures Procedure Name Priority Date/Time Associated Diagnosis Comments XR SACRUM COCCYX 2+ VIEWS 12/22/2023 2:30 PM EDT documented in this encounter Results * XR sacrum coccyx 2+ views (12/22/2023 2:30 PM EDT) Anatomical Region Laterality Modality Sacrum, Coccyx Radiographic Michelle ging 12/22/2023 2:30 PM EDT Narrative 12/22/2023 2:32 PM EDT The [address] [address] XRay Report Signed Patient: ANKUR REILLY MR#: [id number] : 1945 Acct:[id number] Age/Sex: 78 / M ADM Date: 12/22/23 Loc: RAD Attending Dr: Jadyn Wyman M.D. Ordering Physician: Jadyn Wyman M.D. Date of Service: 12/22/23 Procedure(s): XR sacrum coccyx min 2V Accession Number(s): [id number] cc: BENI NGUYEN ; Jadyn Wyman M.D. The [address] [address] Patient Name: ANKUR REILLY MRN: [facility]:[id number] date: 1945 Sex: M Assigned Patient Location: RAD Current Patient Location: RAD Accession/Order Number: [id number] Exam Date: 12/22/2023 13:20 Report Date: 12/22/2023 [...] Signed By: 12/22/23 1432 DD/ 1430 TD/TT: Granite Polisher Apprentice: Procedure Note Radiology, Radiologist, MD - 12/22/2023 [place] [address] XRay Report Signed Patient: ANKUR REILLY [facility]#: [id number] : 1945cct:[id number] Age/Sex: 78 / MADM Date: 12/22/23 Loc: RAD Attending Dr: Jadyn Wyman M.D. Ordering Physician: Jadyn Wyman M.D. Date of Service: 12/22/23 Procedure(s): XR sacrum coccyx min 2V Accession Number(s): [id number] cc: BENI NGUYEN ; Jadyn Wyman M.D. [address] [address] Patient Name: ANKUR REILLY MRN: [id number] date: 1945 Sex: M Assigned Patient Location: RAD Current Patient Location: RAD Accession/Order Number: [id number] Exam Date: 12/22/2023 13:20 Report Date: 12/22/2023 [...] M.D. Signed By:12/22/23 1432 DD/ 1430 TD/TT: Granite Polisher Apprentice: Generic External Data Provider IMG XR PROCEDURES Final Result documented in this encounter Visit Diagnoses Not on filedocumented in this encounter Care Teams Bin Filler Relationship Specialty Start Date End Date Beni Nguyen MD [address] [facility] 110 [place] [address] PCP - General Internal Medicine 01/02/23 Beni Nguyen MD [address] [facility] 110 [place] [address] PCP - ACO Reach 01/12/23 Esther Connolly, RN [address] [place] [address] Clinical Advocate Family Medicine 09/27/24 11/08/24 Anastasia Rayo LPN [address] [address] 11/08/24 documented as of this encounter
--- OUTSIDE RECORDS SUMMARY | 2025-05-07 13:48 | XMS_ITS | Encounter Summary ---
Author Organization [facility] Address [address] [place] [address] Care Team Providers Care Boilermaker Loftsman Name Role Phone Beni Nguyen MD Primary Care Provider [phone] Beni Nguyen MD Unavailable [phone] Esther Connolly RN Unavailable Anastasia Rayo LPN Unavailable Encounter Details Date Type Department Care Team (Late st Contact Info) Description 06/27/2023 Abstract [facility] [address] [facility] 110 [place] [address] Beni Nguyen MD 112 [facility] 110 [place] [address] Social History Tobacco Use Types Packs/Day Years [...] EST Procedure Visit [facility] 112 [facility] 120 [place] [address] Real Og, DPM 3006 [facility] 5 [place] [address] documented as of this encounter Visit Diagnoses Not on filedocumented in this encounter Care Teams Boilermaker Loftsman Relationship Specialty Start Date End Date Beni Nguyen MD 112 [place] [facility] 110 [place] [address] PCP - General Internal Medicine 01/02/23 Beni Nguyen MD [address] [facility] 110 [place] [address] PCP - ACO Reach 01/12/23 Esther Connolly RN [address] [place], [place] [address] Clinical Advocate Family Medicine 09/27/24 11/08/24 Anastasia Rayo LPN [address] [address] 11/08/24 documented as of this encounter
--- OUTSIDE RECORDS SUMMARY | 2025-05-07 13:48 | XMS_ITS ---
Author Organization [facility] Address [address] [place] [address] Care Team Providers Care Pot Maker Name Role Phone Beni Nguyen MD Primary Care Provider [phone] Beni Nguyen MD Unavailable [phone] Anastasia Rayo LPN Unavailable Chronic Care Management (CCM) Status:Enrolled (Active) Start date:11/19/2016 Enrollment date:11/19/2016 Overview 06/21/23, 9:37 AM - Salma Monday, ALETHA- Patient gives verbal consent to be enrolled in CCM Program and understands there could be a bill for this service. Case Team Name Relationship Phone Anastasia Rayo LPN(Responsible Staff) [phone] Continued Care and Services Coordination
--- OUTSIDE RECORDS SUMMARY | 2025-05-07 13:48 | XMS_ITS | Encounter Summary ---
Author Organization [facility] Address [address] [place] [address] Care Team Providers Care Retirement Actuary Name Role Phone Beni Nguyen MD Primary Care Provider Beni Nguyen MD Unavailable [phone] Esther Connolly RN Unavailable Anastasia Rayo LPN Unavailable Encounter Details Date Type Department Care Team (Late st Contact Info) Description 05/11/2023 Abstract [facility] [address] [facility] 110 [place] [address] Beni Nguyen MD 112 [facility] 110 [place] [address] Social History Tobacco Use Types Packs/Day Years [...] often do you attend chur ch or latter day services? Never 03/17/2023 Do [...] Upcoming Encounters Date Type Department Care Team ([facility] st Contact Info) Description 07/03/2025 2:40 PM EST Procedure Visit [facility] 112 [facility] 120 [place] [address] Real Og, DPM 3006 [facility] 5 [place] [address] documented as of this encounter Visit Diagnoses Not on filedocumented in this encounter Care Teams Retirement Actuary Relationship Specialty Start Date End Date Beni Nguyen MD 112 [place] [facility] 110 [place] [address] PCP - General Internal Medicine 01/02/23 Beni Nguyen MD [address] [facility] 110 [place] [address] PCP - ACO Reach 01/12/23 Esther Connolly RN [address] [place], [place] [address] Clinical Advocate Family Medicine 09/27/24 11/08/24 Anastasia Rayo LPN [address] [address] 11/08/24 documented as of this encounter
--- OUTSIDE RECORDS SUMMARY | 2025-05-07 13:48 | XMS_ITS | Encounter Summary ---
Author Organization [facility] Address [address] [place] [address] Care Team Providers Care It Compliance Analyst Name Role Phone Beni Nguyen MD Primary Care Provider [phone] Beni Nguyen MD Unavailable [phone] Esther Connolly RN Unavailable Anastasia Rayo LPN Unavailable Encounter Details Date Type Department Care Team (Late st Contact Info) Description 02/13/2024 Abstract [facility] [address] [facility] 110 [place] [address] Beni Nguyen MD 112 [facility] 110 [place] [address] Social History Tobacco Use Types Packs/Day Years [...] often do you attend chur ch or baptism services? Never 03/17/2023 Do you belong to [...] Score 0 10/05/2023 [facility] Answer [...] Visit [facility] [address] [facility] 120 [place] [address] Real Og, DPM 3006 [facility] 5 [place] [address] documented as of this encounter Visit Diagnoses Not on filedocumented in this encounter Care Teams It Compliance Analyst Relationship Specialty Start Date End Date Beni Nguyen MD [address] [facility] 110 [place] [address] PCP - General Internal Medicine 01/02/23 Beni Nguyen MD [address] [facility] 110 [place] [address] PCP - ACO Reach 01/12/23 Esther Connolly, RN [address] [place] [address] Clinical Advocate Family Medicine 09/27/24 11/08/24 Anastasia Rayo LPN [address] [address] 11/08/24 documented as of this encounter
--- OUTSIDE RECORDS SUMMARY | 2025-05-07 13:48 | XMS_ITS | Encounter Summary ---
Author Organization [facility] Address [address] [place] [address] Care Team Providers Care Machine Rope Maker Name Role Phone Beni Nguyen MD Primary Care Provider [phone] Beni Nguyen MD Unavailable [phone] Anastasia Rayo LPN Unavailable Encounter Details Date Type Department Care Team (Late st Contact Info) Description 02/17/2025 Abstract [facility] [address] [email or web address] 110 [place] [address] Beni Nguyen MD 112 [place] [facility] 110 [place] [address] Social History Tobacco Use Types Packs/Day Years [...] CI PODIATRY [address] [facility] 120 [place] [address] Real Og, DPMarcial 3006 [facility] 5 [place] [address] documented as of this encounter Visit Diagnoses Not on filedocumented in this encounter Care Teams Machine Rope Maker Relationship Specialty Start Date End Date Beni Nguyen MD [address] [facility] 110 [place] [address] PCP - General Internal Medicine 01/02/23 Beni Nguyen MD [address] [facility] 110 [place] [address] PCP - ACO Reach 01/12/23 Anastasia Rayo LPN [address] [facility] 110 [place] [address] 11/08/24 documented as of this encounter
--- OUTSIDE RECORDS SUMMARY | 2025-05-07 13:48 | XMS_ITS | Encounter Summary ---
Author Organization [facility] Address [address] [place] [address] Care Team Providers Care Camp Manager Name Role Phone Beni Nguyen MD Primary Care Provider [phone] Beni Nguyen MD Unavailable [phone] Esther Connolly RN Unavailable Anastasia Rayo LPN Unavailable Encounter Details Date Type Department Care Team (Late st Contact Info) Description 07/18/2023 Abstract [facility] [address] [facility] 110 [place] [address] Beni Nguyen MD 112 [facility] 110 [place] [address] Social History Tobacco Use Types Packs/Day Years [...] Upcoming Encounters Date Type Department Care Team ([facility] st Contact Info) Description 07/03/2025 2:40 PM EST Procedure Visit [facility] 112 [facility] 120 [place] [address] Real Og, DPM 3006 [facility] 5 [place] [address] documented as of this encounter Visit Diagnoses Not on filedocumented in this encounter Care Teams Camp Manager Relationship Specialty Start Date End Date Beni Nguyen MD 112 [facility] 110 [place] [address] PCP - General Internal Medicine 01/02/23 Beni Nguyen MD [address] [facility] 110 [place] [address] PCP - ACO Reach 01/12/23 Esther Connolly RN [address] [place], [place] [address] Clinical Advocate Family Medicine 09/27/24 11/08/24 Anastasia Rayo LPN [address] [address] 11/08/24 documented as of this encounter
--- OUTSIDE RECORDS SUMMARY | 2025-05-07 13:48 | XMS_ITS | Encounter Summary ---
Author Organization [facility] Address [address] [place] [address] Care Team Providers Care Party Plan Demonstrator Name Role Phone Beni Nguyen MD Primary Care Provider [phone] Beni Nguyen MD Unavailable [phone] Esther Connolly RN Unavailable [phone] Anastasia Rayo LPN Unavailable Encounter Details [...] Recorded Patient Health Questionnaire-2 Score 0 10/05/2023 [facility] of Occupat ional [...] Team ([facility] st Contact Info) Description 07/03/2025 2:40 PM EST Procedure Visit [facility] 112 [facility] 120 [place] [address] Real Og DPM 3006 [facility] 5 [place] [address] documented as of this encounter Procedures Procedure Name Priority Date/Time Associated Diagnosis Comments MR KNEE LT WO CON 03/07/2024 4:3 0 AM EDT documented in this encounter Results * MR KNEE LT WO CON (03/07/2024 4:30 AM EDT) Anatomical Region Laterality Modality Other 03/07/2024 4:30 AM EDT Narrative 03/07/2024 4:33 AM EDT The [address] [address] Magnetic Resonance Report Signed Patient: ANKUR REILLY MR#: [id number] : 1945 Acct:[id number] Age/Sex: 78 / M ADM Date: 03/06/24 Loc: MRI Attending Dr: Priya Gao M.D. Ordering Physician: Priya Gao M.D. Date of Service: 03/06/24 Procedure(s): MR knee LT wo con Accession Number(s): [id number] cc: BENI NGUYEN ; Priya Gao M.D. [place] [id number] Patient Name: ANKUR REILLY MRN: [id number] date: 1945 Sex: M Assigned Patient Location: MRI Current Patient Location: Accession/Order Number: [id number] Exam Date: 03/06/2024 07:00 Report Date: 03/07/2024 [...] Signed By: 03/07/24432 DD/ 9 TD/TT: Manager [place]: Procedure Note Radiology, Radiologist, MD - 03/07/2024 [place] [address] Magnetic Resonance Report Signed Patient: ANKUR REILLY AMR#: [id number] : 1945cct:[id number] Age/Sex: 78 / MADM Date: 03/06/24 Loc: MRI Attending Dr: Priya Gao M.D. Ordering Physician: Priya Gao M.D. Date of Service: 03/06/24 Procedure(s): MR knee LT wo con Accession Number(s): [id number] cc: BENI NGUYEN ; Priya Gao M.D. The [place] [address] Patient Name: ANKUR REILLY MRN: [id number] date: 1945 Sex: M Assigned Patient Location: MRI Current Patient Location: Accession/Order Number: [id number] Exam Date: 03/06/2024 07:00 Report Date: 03/07/2024 04:30 At the request of: PRIYA GAO Procedure: MR knee LT wo con EXAMINATION: MR knee LT wo con HISTORY: left knee pain COMPARISON: No relevant comparison available. TECHNIQUE: A complete multi-planar MRI was performed. 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 No convincing [...] Perez M.D. Signed By:03/07/24432 DD/ 9 TD/TT: Manager [place]: [employer] External Data Provider [facility] Final Result documented in this encounter Visit Diagnoses Not on filedocumented in this encounter Care Teams Party Plan Demonstrator Relationship Specialty Start Date End Date Beni Nguyen MD [address] [facility] 110 [place] [address] PCP - General Internal Medicine 01/02/23 Beni Nguyen MD [address] [facility] 110 [place] [address] PCP - ACO Reach 01/12/23 Esther Connolly, HEATHER [address] [place] [address] Clinical Advocate Family Medicine 09/27/24 11/08/24 Anastasia Rayo LPN [address] [address] 11/08/24 documented as of this encounter
--- OUTSIDE RECORDS SUMMARY | 2025-05-07 13:48 | XMS_ITS | Encounter Summary ---
Author Organization [facility] Address [address] [place] [address] Care Team Providers Care Maintenance Specialist Name Role Phone Beni Nguyen MD Primary Care Provider [phone] Beni Nguyen MD Unavailable [phone] Esther Connolly RN Unavailable Anastasia Rayo LPN Unavailable Encounter Details Date Type Department Care Team (Late st Contact Info) Description 05/23/2023 Abstract [facility] [address] [facility] 110 [place] [address] Beni Nguyen MD 112 [facility] 110 [place] [address] Social History Tobacco Use Types Packs/Day Years [...] Upcoming Encounters Date Type Department Care Team ([facility] st Contact Info) Description 07/03/2025 2:40 PM EST Procedure Visit [facility] 112 [facility] 120 [place] [address] Real Og, DPM 3006 [facility] 5 [place] [address] documented as of this encounter Visit Diagnoses Not on filedocumented in this encounter Care Teams Maintenance Specialist Relationship Specialty Start Date End Date Beni Nguyen MD 112 [place] [facility] 110 [place] [address] PCP - General Internal Medicine 01/02/23 Beni Nguyen MD [address] [facility] 110 [place] [address] PCP - ACO Reach 01/12/23 Esther Connolly RN [address] [place], [place] [address] Clinical Advocate Family Medicine 09/27/24 11/08/24 Anastasia Rayo LPN [address] [address] 11/08/24 documented as of this encounter
--- OUTSIDE RECORDS SUMMARY | 2025-05-07 13:48 | XMS_ITS | Encounter Summary ---
Author Organization [facility] Address [address] [place] [address] Care Team Providers Care Venetian Blind Tape Cutter Name Role Phone Beni Nguyen MD Primary Care Provider [phone] Beni Nguyen MD Unavailable [phone] Esther Connolly RN Unavailable [phone] Anastasia Rayo LPN Unavailable Encounter Details Date Type Department Care Team (Late st Contact Info) Description 07/18/2023 Abstract [facility] [address] [facility] 110 [place] [address] Beni Nguyen MD 112 [facility] 110 [place] [address] Social History Tobacco Use Types Packs/Day Years [...] ([facility] st Contact Info) Description 07/03/2025 2:40 PM EST Procedure Visit [facility] 112 [facility] 120 [place] [address] Real Og, DPM 3006 [facility] 5 [place] [address] documented as of this encounter Visit Diagnoses Not on filedocumented in this encounter Care Teams Venetian Blind Tape Cutter Relationship Specialty Start Date End Date Beni Nguyen MD 112 [place] [facility] 110 [place] [address] PCP - General Internal Medicine 01/02/23 Beni Nguyen MD [address] [facility] 110 [place] [address] PCP - ACO Reach 01/12/23 Esther Connolly RN [address] [place], [place] [address] Clinical Advocate Family Medicine 09/27/24 11/08/24 Anastasia Rayo LPN [address] [address] 11/08/24 documented as of this encounter
--- OUTSIDE RECORDS SUMMARY | 2025-05-07 13:48 | XMS_ITS | Encounter Summary ---
Author Organization [facility] Address [address] [place] [address] Care Team Providers Care Electronics Utility Worker Name Role Phone Beni Nguyen MD Primary Care Provider [phone] Beni Nguyen MD Unavailable [phone] Esther Connolly RN Unavailable [phone] Anastasia Rayo LPN Unavailable Encounter Details Date Type Department Care Team (Late st Contact Info) Description 05/23/2023 Abstract [facility] [address] [facility] 110 [place] [address] Beni Nguyen MD 112 [facility] 110 [place] [address] Social History Tobacco Use Types Packs/Day Years [...] and heating? Not hard at all 03/17/2023 [facility] of Occupat ional Health [...] EST Procedure Visit [facility] PODIATRY 112 [facility] 120 [place] [address] Real Og, DPM 3006 [facility] 5 [place] [address] documented as of this encounter Visit Diagnoses Not on filedocumented in this encounter Care Teams Electronics Utility Worker Relationship Specialty Start Date End Date Beni Nguyen MD [address] [facility] 110 [place] [address] PCP - General Internal Medicine 01/02/23 Beni Nguyen MD [address] [facility] 110 [place] [address] PCP - ACO Reach 01/12/23 Esther Connolly RN [address] [place], [place] [address] Clinical Advocate Family Medicine 09/27/24 11/08/24 Anastasia Rayo LPN [address] [address] 11/08/24 documented as of this encounter
--- OUTSIDE RECORDS SUMMARY | 2025-05-07 13:48 | XMS_ITS | Encounter Summary ---
Author Organization [facility] Address [address] [place] [address] Care Team Providers Care Director Marketing Analytics Name Role Phone Beni Nguyen MD Primary Care Provider [phone] Beni Nguyen MD Unavailable [phone] Esther Connolly RN Unavailable Anastasia Rayo LPN Unavailable Encounter Details Date Type Department Care Team (Late st Contact Info) Description 06/12/2023 Abstract [facility] [address] [facility] 110 [place] [address] Beni Nguyen MD 112 [facility] 110 [place] [address] Social History Tobacco Use Types Packs/Day Years [...] CI PODIATRY [address] [facility] 120 [place] [address] Real Og, DPM 3006 [facility] 5 [place] [address] documented as of this encounter Visit Diagnoses Not on filedocumented in this encounter Care Teams Director Marketing Analytics Relationship Specialty Start Date End Date Beni Nguyen MD [address] [place] [facility] 110 [place] [address] PCP - General Internal Medicine 01/02/23 Beni Nguyen MD [address] [facility] 110 [place] [address] PCP - ACO Reach 01/12/23 Esther Connolly RN [address] [place], [place] [address] Clinical Advocate Family Medicine 09/27/24 11/08/24 Anastasia Rayo LPN [address] [address] 11/08/24 documented as of this encounter
--- OUTSIDE RECORDS SUMMARY | 2025-05-07 13:48 | XMS_ITS | Encounter Summary ---
Author Organization [facility] Address [address] [place] [address] Care Team Providers Care Clutch Operator Name Role Phone Beni Nguyen MD Primary Care Provider [phone] Beni Nguyen MD Unavailable [phone] Esther Connolly RN Unavailable Anastasia Rayo LPN Unavailable Encounter Details Date Type Department Care Team (Late st Contact Info) Description 11/05/2024 Abstract [facility] 112 [facility] 110 [place] [address] Beni Nguyen MD 112 [facility] 110 [place] [address] Social History Tobacco Use Types Packs/Day Years [...] Recorded Patient Health Questionnaire-2 Score 0 10/29/2024 [facility] [...] ([facility] st Contact Info) Description 07/03/2025 2:40 PM EST Procedure Visit [facility] 112 [facility] 120 [place] [address] Real Og DPM 3006 [facility] 5 [place] [address] documented as of this encounter Visit Diagnoses Not on filedocumented in this encounter Care Teams Clutch Operator Relationship Specialty Start Date End Date Beni Nguyen MD 112 [facility] 110 [place] [address] PCP - General Internal Medicine 01/02/23 Beni Nguyen MD 112 [facility] 110 [place] [address] PCP - ACO Reach 01/12/23 Esther Connolly, HEATHER [address] [place], [place] [address] Clinical Advocate Family Medicine 09/27/24 11/08/24 Anastasia Rayo LPN 112 [facility] 110 [place] [address] 11/08/24 documented as of this encounter
--- OUTSIDE RECORDS SUMMARY | 2025-05-07 13:48 | XMS_ITS | Encounter Summary ---
Author Organization [facility] Address [address] [place] [address] Care Team Providers Care Collar Runner Name Role Phone Beni Nguyen MD Primary Care Provider [phone] Beni Nguyen MD Unavailable [phone] Esther Connolly RN Unavailable [phone] Anastasia Rayo LPN Unavailable Encounter Details [...] Recorded Patient Health Questionnaire-2 Score 0 10/05/2023 [facility]at [facility] [...] Team ([facility] st Contact Info) Description 07/03/2025 2:40 PM EST Procedure Visit [facility] 112 [facility] 120 [place] [address] Real Og DPM 3006 [facility] 5 [place] [address] documented as of this encounter Procedures Procedure Name Priority Date/Time Associated Diagnosis Comments MR LUMBAR SPINE WO CON 12/22/2023 2:22 PM EDT documented in this encounter Results * MR LUMBAR SPINE WO CON (12/22/2023 2:22 PM EDT) Anatomical Region Laterality Modality Other 12/22/2023 2:22 PM EDT Narrative 12/22/2023 2:25 PM EDT The [address] [address] Magnetic Resonance Report Signed Patient: ANKUR REILLY MR#: [id number] : 1945 Acct:[id number] Age/Sex: 78 / M ADM Date: 12/22/23 Loc: RAD Attending Dr: Jadyn Wyman M.D. Ordering Physician: Jadyn Wyman M.D. Date of Service: 12/22/23 Procedure(s): MR lumbar spine wo con Accession Number(s): [id number] cc: BENI NGUYEN ; Jadyn Wyman M.D. [place] [address] Patient Name: ANKUR REILLY MRN: [facility]:[id number] date: 1945 Sex: M Assigned Patient Location: RAD Current Patient Location: RAD Accession/Order Number: [id number] Exam Date: 12/22/2023 12:40 Report Date: 12/22/2023 [...] Signed By: 12/22/23 1425 DD/ 1422 TD/TT: Layout Mechanic: Procedure Note Radiology, Radiologist, MD - 12/22/2023 [place] [address] Magnetic Resonance Report Signed Patient: ANKUR REILLY [facility]#: [id number] : 1945cct:[id number] Age/Sex: 78 / MADM Date: 12/22/23 Loc: RAD Attending Dr: Jadyn Wyman M.D. Ordering Physician: Jadyn Wyman M.D. Date of Service: 12/22/23 Procedure(s): MR lumbar spine wo con Accession Number(s): [id number] cc: BENI NGUYEN ; Jadyn Wyman M.D. The [place] [id number] Patient Name: ANKUR REILLY MRN: [facility]:[id number] date: 1945 Sex: M Assigned Patient Location: RAD Current Patient Location: RAD Accession/Order Number: [id number] Exam Date: 12/22/2023 12:40 Report Date: 12/22/2023 [...] Jordan Rutledge M.D. Signed By:12/22/23 1425 DD/ 142 TD/TT: Layout Mechanic: us Generic External Data Provider [facility] Final Result documented in this encounter Visit Diagnoses Not on filedocumented in this encounter Care Teams Collar Runner Relationship Specialty Start Date End Date Beni Nguyen MD [address] [place] [address] [address] PCP - General Internal Medicine 01/02/23 Beni Nguyen MD [address] [place] [address] [address] PCP - ACO Reach 01/12/23 Esther Connolly, HEATHER [address] [facility] [place] [address] Clinical Advocate Family Medicine 09/27/24 11/08/24 Anastasia Rayo LPN [address] [place] [address] [address] 11/08/24 documented as of this encounter
--- OUTSIDE RECORDS SUMMARY | 2025-05-07 13:48 | XMS_ITS | Encounter Summary ---
Author Organization [facility] Address [address] [place] [address] Care Team Providers Care Air Carrier Inspector Name Role Phone Beni Nguyen MD Primary Care Provider [phone] Beni Nguyen MD Unavailable [phone] Esther Connolly RN Unavailable Anastasia Rayo LPN Unavailable Encounter Details Date Type Department Care Team (Late st Contact Info) Description 05/11/2023 Abstract [facility] [address] [facility] 110 [place] [address] Beni Nguyen MD 112 [facility] 110 [place] [address] Social History Tobacco Use Types Packs/Day Years [...] and heating? Not hard at all 03/17/2023 [facility] Occupat ional Health [...] Team ([facility] st Contact Info) Description 07/03/2025 2:40 PM EST Procedure Visit [facility] 112 [facility] 120 [place] [address] Real Og, DPM 3006 [facility] 5 [place] [address] documented as of this encounter Visit Diagnoses Not on filedocumented in this encounter Care Teams Air Carrier Inspector Relationship Specialty Start Date End Date Beni Nguyen MD 112 [place] [facility] 110 [place] [address] PCP - General Internal Medicine 01/02/23 Beni Nguyen MD [address] [facility] 110 [place] [address] PCP - ACO Reach 01/12/23 Esther Connolly RN [address] [place], [place] [address] Clinical Advocate Family Medicine 09/27/24 11/08/24 Anastasia Rayo LPN [address] [address] 11/08/24 documented as of this encounter
--- OUTSIDE RECORDS SUMMARY | 2025-05-07 13:48 | XMS_ITS | Encounter Summary ---
Author Organization [facility] Address [address] [place] [address] Care Team Providers Care Clothing Designer Name Role Phone Beni Nguyen MD Primary Care Provider [phone] Beni Nguyen MD Unavailable [phone] Esther Connolly RN Unavailable Anastasia Rayo LPN Unavailable Encounter Details Date Type Department Care Team (Late st Contact Info) Description 05/17/2023 Abstract [facility] [address] [facility] 110 [place] [address] Beni Nguyen MD 112 [facility] 110 [place] [address] Social History Tobacco Use Types Packs/Day Years [...] [facility] 120 [place] [address] Real Og, DPM 3006 [facility] 5 [place] [address] documented as of this encounter Visit Diagnoses Not on filedocumented in this encounter Care Teams Clothing Designer Relationship Specialty Start Date End Date Beni Nguyen MD [address] [facility] 110 [place] [address] PCP - General Internal Medicine 01/02/23 Beni Nguyen MD [address] [facility] 110 [place] [address] PCP - ACO Reach 01/12/23 Esther Connolly RN [address] [place], [place] [address] Clinical Advocate Family Medicine 09/27/24 11/08/24 Anastasia Rayo LPN [address] [address] 11/08/24 documented as of this encounter
--- OUTSIDE RECORDS SUMMARY | 2025-05-07 13:48 | XMS_ITS | Encounter Summary ---
Author Organization [facility] Address [address] [place] [address] Care Team Providers Care Grain Oilseed Or Pasture Grower Name Role Phone Beni Nguyen MD Primary Care Provider [phone] Beni Nguyen MD Unavailable [phone] Esther Connolly RN Unavailable [phone] Anastasia Rayo LPN Unavailable Encounter Details Date Type Department Care Team (Late st Contact Info) Description 05/11/2023 Abstract [facility] [address] [facility] 110 [place] [address] Beni Nguyen MD 112 [facility] 110 [place] [address] Social History Tobacco Use Types Packs/Day Years [...] and heating? Not hard at all 03/17/2023 [facility] Occupat ional Health [...] Upcoming Encounters Date Type Department Care Team ([facility] st Contact Info) Description 07/03/2025 2:40 PM EST Procedure Visit [facility] 112 [facility] 120 [place] [address] Real Og, DPM 3006 [facility] 5 [place] [address] documented as of this encounter Visit Diagnoses Not on filedocumented in this encounter Care Teams Grain Oilseed Or Pasture Grower Relationship Specialty Start Date End Date Beni Nguyen MD 112 [facility] 110 [place] [address] PCP - General Internal Medicine 01/02/23 Beni Nguyen MD [address] [facility] 110 [place] [address] PCP - ACO Reach 01/12/23 Esther Connolly RN [address] [place], [place] [address] Clinical Advocate Family Medicine 09/27/24 11/08/24 Anastasia Rayo LPN [address] [address] 11/08/24 documented as of this encounter
--- OUTSIDE RECORDS SUMMARY | 2025-05-07 13:48 | XMS_ITS | Encounter Summary ---
Author Organization [facility] Address [address] [place] [address] Phone Care Team Providers Care Senior Net Application Developer Name Role Phone Beni Nguyen MD Primary Care Provider [phone] Encounter Details Date Type Department Care Team (Late st Contact Info) Description 07/28/2024 Scanned Document [facility] [address] [place] [address] Scanning, Generic Provider Social History Tobacco Use [...] Description 09/25/2025 2:10 PM EST Office Visit [place] [id number] [facility] 250 [place] [address] Juan C Hoover 703 [facility] 2, Jesse 250 [place] [address] Scheduled Orders Name Type Priority Associated Diagnoses Orde r Schedule Ultrasound- OnBase Scan Imaging O rdered: 07/28/2024 documented as of this encounter Visit Diagnoses Not on filedocumented in this encounter Additional Health Concerns Assessment Noted Time A fall risk assessment has been complete d for the patient 09/20/2023 12:14 PM EST documented as of this encounter Care Teams Senior Net Application Developer Relationship Specialty Start Date End Date Beni Nguyen MD 112 [facility] 110 [place] [address] PCP - General 05/18/23 documented as of this encounter
--- OUTSIDE RECORDS SUMMARY | 2025-05-07 13:48 | XMS_ITS | Encounter Summary ---
Author Organization [facility] Address [address] [place] [address] Care Team Providers Care Production Roustabout Name Role Phone Beni Nguyen MD Primary Care Provider [phone] Beni Nguyen MD Unavailable [phone] Esther Connolly RN Unavailable [phone] Anastasia Rayo LPN Unavailable Encounter Details Date Type Department Care Team (Late st Contact Info) Description 06/20/2023 Abstract [facility] [address] [facility] 110 [place] [address] Beni Nguyen MD 112 [facility] 110 [place] [address] Social History Tobacco Use Types Packs/Day Years [...] Encounters Date Type Department Care Team ([facility] st Contact Info) Description 07/03/2025 2:40 PM EST Procedure Visit [facility] 112 [facility] 120 [place] [address] Real Og, DPM 3006 [facility] 5 [place] [address] documented as of this encounter Visit Diagnoses Not on filedocumented in this encounter Care Teams Production Roustabout Relationship Specialty Start Date End Date Beni Nguyen MD 112 [place] [facility] 110 [place] [address] PCP - General Internal Medicine 01/02/23 Beni Nguyen MD [address] [facility] 110 [place] [address] PCP - ACO Reach 01/12/23 Esther Connolly RN [address] [place], [place] [address] Clinical Advocate Family Medicine 09/27/24 11/08/24 Anastasia Rayo LPN [address] [address] 11/08/24 documented as of this encounter
--- OUTSIDE RECORDS SUMMARY | 2025-05-07 13:48 | XMS_ITS | Encounter Summary ---
Author Organization [facility] Address [address] [place] [address] Care Team Providers Care Truck Jumper Name Role Phone Beni Nguyen MD Primary Care Provider [phone] Beni Nguyen MD Unavailable [phone] Esther Connolly RN Unavailable Anastasia Rayo LPN Unavailable Encounter Details Date Type Department Care Team (Late st Contact Info) Description 01/31/2024 Abstract [facility] [address] [facility] 110 [place] [address] Beni Nguyen MD 112 [facility] 110 [place] [address] Social History Tobacco Use Types Packs/Day Years [...] Score 0 10/05/2023 [facility] Questionnaire Answer Date [...] [facility] [address] [facility] 120 [place] [address] Real Og, DPM 3006 [facility] 5 [place] [address] documented as of this encounter Visit Diagnoses Not on filedocumented in this encounter Care Teams Truck Jumper Relationship Specialty Start Date End Date Beni Nguyen MD [address] [facility] 110 [place] [address] PCP - General Internal Medicine 01/02/23 Beni Nguyen MD [address] [facility] 110 [place] [address] PCP - ACO Reach 01/12/23 Esther Connolly, RN [address] [place] [address] Clinical Advocate Family Medicine 09/27/24 11/08/24 Anastasia Rayo LPN [address] [address] 11/08/24 documented as of this encounter
--- OUTSIDE RECORDS SUMMARY | 2025-05-07 13:49 | XMS_ITS | Encounter Summary ---
Author Organization [facility] Address [address] [place] [address] Care Team Providers Care Manager Of Operations Name Role Phone Beni Nguyen MD Primary Care Provider [phone] Beni Nguyen MD Unavailable [phone] Esther Connolly RN Unavailable Anastasia Rayo LPN Unavailable Encounter Details Date Type Department Care Team (Late st Contact Info) Description 06/24/2024 Abstract [facility] 112 [address] [facility] 110 [place] [address] Beni Nguyen MD 112 [facility] 110 [place] [address] Social History Tobacco Use Types Packs/Day Years [...] Patient Health Questionnaire-2 Score 0 10/05/2023 [facility] of Occupat ional Health - [...] Upcoming Encounters Date Type Department Care Team ([facility] st Contact Info) Description 07/03/2025 2:40 PM EST Procedure Visit [facility] 112 [facility] 120 [place] [address] Real Og DPM 3006 [facility] 5 [place] [address] documented as of this encounter Visit Diagnoses Not on filedocumented in this encounter Care Teams Manager Of Operations Relationship Specialty Start Date End Date Beni Nguyen MD 112 [facility] 110 [place] [address] PCP - General Internal Medicine 01/02/23 Beni Nguyen MD 112 [facility] 110 [place] [address] PCP - ACO Reach 01/12/23 sEther Connolly, HEATHER [address] [place], [place] [address] Clinical Advocate Family Medicine 09/27/24 11/08/24 Anastasia Rayo LPN 112 [facility] 110 [place] [address] 11/08/24 documented as of this encounter
--- OUTSIDE RECORDS SUMMARY | 2025-05-07 13:49 | XMS_ITS | Encounter Summary ---
Author Organization [facility] Address [address] [place] [address] Care Team Providers Care Plaster Die Maker Name Role Phone Beni Nguyen MD Primary Care Provider [phone] Beni Nguyen MD Unavailable [phone] Esther Connolly RN Unavailable Anastasia Rayo LPN Unavailable Encounter Details Date Type Department Care Team (Late st Contact Info) Description 08/04/2023 Abstract [facility] [address] [facility] 110 [place] [address] Beni Nguyen MD 112 [facility] 110 [place] [address] Social History Tobacco Use Types Packs/Day Years [...] and heating? Not hard at all 03/17/2023 [facility] of Occupat ional [...] Upcoming Encounters Date Type Department Care Team ([facility] st Contact Info) Description 07/03/2025 2:40 PM EST Procedure Visit [facility] 112 [facility] 120 [place] [address] Real Og, DPM 3006 [facility] 5 [place] [address] documented as of this encounter Visit Diagnoses Not on filedocumented in this encounter Care Teams Plaster Die Maker Relationship Specialty Start Date End Date Beni Nguyen MD 112 [facility] 110 [place] [address] PCP - General Internal Medicine 01/02/23 Beni Nguyen MD [address] [facility] 110 [place] [address] PCP - ACO Reach 01/12/23 Esther Connolly RN [address] [place], [place] [address] Clinical Advocate Family Medicine 09/27/24 11/08/24 Anastasia Rayo LPN [address] [address] 11/08/24 documented as of this encounter
--- OUTSIDE RECORDS SUMMARY | 2025-05-07 13:49 | XMS_ITS | Encounter Summary ---
Author Organization [facility] Address [address] [place] [address] Care Team Providers Care Edger Feeder Name Role Phone Beni Nguyen MD Primary Care Provider [phone] Beni Nguyen MD Unavailable [phone] Esther Connolly RN Unavailable [phone] Anastasia Rayo LPN Unavailable Encounter Details Date Type Department Care Team (Late st Contact Info) Description 06/24/2024 Abstract [facility] 112 [address] [facility] 110 [place] [address] Beni Nguyen MD 112 [facility] 110 [place] [address] Social History Tobacco Use Types Packs/Day Years [...] often do you attend chur ch or yazdanism services? Never 03/17/2023 Do you [...] Upcoming Encounters Date Type Department Care Team ([facility] st Contact Info) Description 07/03/2025 2:40 PM EST Procedure Visit [facility] 112 [facility] 120 [place] [address] Real Og DPM 3006 [facility] 5 [place] [address] documented as of this encounter Visit Diagnoses Not on filedocumented in this encounter Care Teams Edger Feeder Relationship Specialty Start Date End Date Beni Nguyen MD 112 [facility] 110 [place] [address] PCP - General Internal Medicine 01/02/23 Beni Nguyen MD 112 [facility] 110 [place] [address] PCP - ACO Reach 01/12/23 Esther Connolly, HEATHER [address] [place], [place] [address] Clinical Advocate Family Medicine 09/27/24 11/08/24 Anastasia Rayo LPN 112 [facility] 110 [place] [address] 11/08/24 documented as of this encounter
--- OUTSIDE RECORDS SUMMARY | 2025-05-07 13:49 | XMS_ITS | Encounter Summary ---
Author Organization [facility] Address [address] [place] [address] Care Team Providers Care Vehicle Maintenance Technician Name Role Phone Beni Nguyen MD Primary Care Provider [phone] Beni Nguyen MD Unavailable [phone] Esther Connolly RN Unavailable Anastasia Rayo LPN Unavailable Encounter Details Date Type Department Care Team (Late st Contact Info) Description 06/20/[address] [facility] 112 [address] [facility] 110 [place] [address] Beni Nguyen MD 112 [facility] 110 [place] [address] Social History Tobacco Use Types Packs/Day Years [...] EST Procedure Visit [facility] 112 [facility] 120 [place] [address] Real Og DPM 3006 [facility] 5 [place] [address] documented as of this encounter Visit Diagnoses Not on filedocumented in this encounter Care Teams Vehicle Maintenance Technician Relationship Specialty Start Date End Date Beni Nguyen MD 112 [facility] 110 [place] [address] PCP - General Internal Medicine 01/02/23 Beni Nguyen MD 112 [facility] 110 [place] [address] PCP - ACO Reach 01/12/23 Etsher Connolly, HEATHER [address] [place], [place] [address] Clinical Advocate Family Medicine 09/27/24 11/08/24 Anastasia Rayo LPN [address] [facility] 110 [place] [address] 11/08/24 documented as of this encounter
--- OUTSIDE RECORDS SUMMARY | 2025-05-07 13:49 | XMS_ITS | Encounter Summary ---
Author Organization [facility] Address [address] [place] [address] Care Team Providers Care Renal Technician Name Role Phone Beni Nguyen MD Primary Care Provider [phone] Beni Nguyen MD Unavailable [phone] Esther Connolly RN Unavailable Anastasia Rayo LPN Unavailable Encounter Details Date Type Department Care Team (Late st Contact Info) Description 06/20/[address] [facility] [address] [facility] 110 [place] [address] Beni Nguyen MD 112 [facility] 110 [place] [address] Social History Tobacco Use Types Packs/Day Years [...] often do you attend chur ch or anglican services? Never 03/17/2023 Do you [...] Recorded Patient Health Questionnaire-2 Score 0 10/05/2023 [facility] of Occupat ional Health [...] Health Care Facility st Contact Info) Description 07/03/2025 2:40 PM EST Procedure Visit [facility] 112 [facility] 120 [place] [address] Real Og DPM 3006 [facility] 5 [place] [address] documented as of this encounter Visit Diagnoses Not on filedocumented in this encounter Care Teams Renal Technician Relationship Specialty Start Date End Date Beni Nguyen MD 112 [facility] 110 [place] [address] PCP - General Internal Medicine 01/02/23 Beni Nguyen MD 112 [facility] 110 [place] [address] PCP - ACO Reach 01/12/23 Esther Connolly, HEATHER [address] [place], [place] [address] Clinical [facility] Family [facility] 09/27/24 11/08/24 Anastasia Rayo LPN [address] [facility] 110 [place] [address] 11/08/24 documented as of this encounter
--- OUTSIDE RECORDS SUMMARY | 2025-05-07 13:49 | XMS_ITS | Encounter Summary ---
Author Organization [facility] Address [address] [place] [address] Care Team Providers Care Automation Engineer Name Role Phone Beni Nguyen MD Primary Care Provider [phone] Beni Nguyen MD Unavailable [phone] Esther Connolly RN Unavailable Anastasia Rayo LPN Unavailable Encounter Details Date Type Department Care Team (Late st Contact Info) Description 08/23/2023 Abstract [facility] [address] [facility] [address] [place] [address] Beni Nguyen MD 112 [facility] 110 [place] [address] Social History Tobacco Use Types Packs/Day Years [...] and heating? Not hard at all 03/17/2023 [facility] [...] Encounters Date Type Department Care Team ([facility] st Contact Info) Description 07/03/2025 2:40 PM EST Procedure Visit [facility] 112 [facility] 120 [place] [address] Real Og, DPM 3006 [facility] 5 [place] [address] documented as of this encounter Visit Diagnoses Not on filedocumented in this encounter Care Teams Automation Engineer Relationship Specialty Start Date End Date Beni Nguyen MD [address] [facility] 110 [place] [address] PCP - General Internal Medicine 01/02/23 Beni Nguyen MD [address] [facility] 110 [place] [address] PCP - ACO Reach 01/12/23 Esther Connolly RN [address] [place], [place] [id number] Clinical Advocate Family Medicine 09/27/24 11/08/24 Anastasia Rayo LPN [address] [address] 11/08/24 documented as of this encounter
--- OUTSIDE RECORDS SUMMARY | 2025-05-07 13:49 | XMS_ITS | Encounter Summary ---
Author Organization [facility] Address [address] [place] [address] Care Team Providers Care Motor Equipment Sergeant Name Role Phone Beni Nguyen MD Primary Care Provider [phone] Beni Nguyen MD Unavailable [phone] Esther Connolly RN Unavailable [phone] Anastasia Rayo LPN Unavailable Encounter Details Date Type Department Care Team (Late st Contact Info) Description 07/07/2023 Abstract [facility] [address] [facility] 110 [place] [address] Beni Nguyen MD 112 [facility] 110 [place] [address] Social History Tobacco Use Types Packs/Day Years [...] often do you attend chur ch or anabaptism services? Never 03/17/2023 Do you belong to [...] Encounters Date Type Department Care Team ([facility] st Contact Info) Description 07/03/2025 2:40 PM EST Procedure Visit [facility] 112 [facility] 120 [place] [address] Real Og, DPM 3006 [facility] 5 [place] [address] documented as of this encounter Visit Diagnoses Not on filedocumented in this encounter Care Teams Motor Equipment Sergeant Relationship Specialty Start Date End Date Beni Nguyen MD 112 [facility] 110 [place] [address] PCP - General Internal Medicine 01/02/23 Beni Nguyen MD [address] [facility] 110 [place] [address] PCP - ACO Reach 01/12/23 Esther Connolly RN [address] [place], [place] [phone] Clinical Advocate Family Medicine 09/27/24 11/08/24 Anastasia Rayo LPN [address] [address] 11/08/24 documented as of this encounter
--- OUTSIDE RECORDS SUMMARY | 2025-05-07 13:49 | XMS_ITS | Encounter Summary ---
Author Organization [facility] Address [address] [place] [address] Care Team Providers Care Refrigerator Repair Technician Name Role Phone Beni Nguyen MD Primary Care Provider [phone] Beni Nguyen MD Unavailable [phone] Esther Connolly RN Unavailable [phone] Anastasia Rayo LPN Unavailable Encounter Details Date Type Department Care Team (Late st Contact Info) Description 06/25/2024 Abstract [facility] [address] [facility] 110 [place] [address] Beni Nguyen MD 112 [facility] 110 [place] [address] Social History Tobacco Use Types Packs/Day Years [...] often do you attend chur ch or restoration services? Never 03/17/2023 Do you [...] Upcoming Encounters Date Type Department Care Team ([facility] st Contact Info) Description 07/03/2025 2:40 PM EST Procedure Visit [facility] 112 [facility] 120 [place] [address] Real Og DPM 3006 [facility] 5 [place] [address] documented as of this encounter Visit Diagnoses Not on filedocumented in this encounter Care Teams Refrigerator Repair Technician Relationship Specialty Start Date End Date Beni Nguyen MD 112 [facility] 110 [place] [address] PCP - General Internal Medicine 01/02/23 Beni Nguyen MD 112 [facility] 110 [place] [address] PCP - ACO Reach 01/12/23 Esther Connolly, HEATHER [address] [place], [place] [phone] Clinical Advocate Family Medicine 09/27/24 11/08/24 Anastasia Rayo LPN 112 [place] [facility] 110 [place] [address] 11/08/24 documented as of this encounter
--- OUTSIDE RECORDS SUMMARY | 2025-05-07 13:49 | XMS_ITS | Encounter Summary ---
Author Organization [facility] Address [address] [place] [address] Care Team Providers Care Diamond Die Polisher Name Role Phone Beni Nguyen MD Primary Care Provider [phone] Beni Nguyen MD Unavailable [phone] Esther Connolly RN Unavailable Anastasia Rayo LPN Unavailable Encounter Details Date Type Department Care Team (Late st Contact Info) Description 07/04/2024 Abstract [facility] [address] [facility] 110 [place] [address] Beni Nguyen MD 112 [facility] 110 [place] [address] Social History Tobacco Use Types Packs/Day Years [...] often do you attend chur ch or hoahaoism services? Never 03/17/2023 Do you [...] Team ([facility] st Contact Info) Description 07/03/2025 2:40 PM EST Procedure Visit [facility] 112 [facility] 120 [place] [address] Real Og DPM 3006 [facility] 5 [place] [address] documented as of this encounter Visit Diagnoses Not on filedocumented in this encounter Care Teams Diamond Die Polisher Relationship Specialty Start Date End Date Beni Nguyen MD 112 [facility] 110 [place] [address] PCP - General Internal Medicine 01/02/23 Beni Nguyen MD 112 [facility] 110 [place] [address] PCP - ACO Reach 01/12/23 Esther Connolly, HEATHER [address] [place], [place] [address] Clinical Advocate Family Medicine 09/27/24 11/08/24 Anastasia Rayo LPN 112 [facility] 110 [place] [address] 11/08/24 documented as of this encounter
--- OUTSIDE RECORDS SUMMARY | 2025-05-07 13:49 | XMS_ITS | Encounter Summary ---
Author Organization [facility] Address [address] [place] [address] Care Team Providers Care Finish Molder Name Role Phone Beni Nguyen MD Primary Care Provider [phone] Beni Nguyen MD Unavailable [phone] Esther Connolly RN Unavailable Anastasia Rayo LPN Unavailable Encounter Details Date Type Department Care Team (Late st Contact Info) Description 07/10/2024 Abstract [facility] [address] [facility] 110 [place] [address] Beni Nguyen MD 112 [facility] 110 [place] [address] Social History Tobacco Use Types Packs/Day Years [...] 0 10/05/2023 [facility]at ional [...] Date Type Department Care Team ([facility] st Contact Info) Description 07/03/2025 2:40 PM EST Procedure Visit [facility] 112 [facility] 120 [place] [address] Real Og DPM 3006 [facility] 5 [place] [address] documented as of this encounter Visit Diagnoses Not on filedocumented in this encounter Care Teams Finish Molder Relationship Specialty Start Date End Date Beni Nguyen MD 112 [facility] 110 [place] [address] PCP - General Internal Medicine 01/02/23 Beni Nguyen MD 112 [facility] 110 [place] [address] PCP - ACO Reach 01/12/23 Esther Connolly, HEATHER [address] [place], [place] [address] Clinical Advocate Family Medicine 09/27/24 11/08/24 Anastasia Rayo LPN 112 [place] [facility] 110 [place] [address] 11/08/24 documented as of this encounter
--- OUTSIDE RECORDS SUMMARY | 2025-05-07 13:49 | XMS_ITS | Encounter Summary ---
Author Organization [facility] Address [address] [place] [address] Care Team Providers Care Bin Operator Name Role Phone Beni Nguyen MD Primary Care Provider [phone] Beni Nguyen MD Unavailable [phone] Esther Connolly RN Unavailable [phone] Anastasia Rayo LPN Unavailable Encounter Details Date Type Department Care Team (Late st Contact Info) Description 06/20/2024 Abstract [facility] [address] [facility] 110 [place] [address] Beni Nguyen MD 112 [facility] 110 [place] [address] Social History Tobacco Use Types Packs/Day Years [...] Upcoming Encounters Date Type Department Care Team ([facility] st Contact Info) Description 07/03/2025 2:40 PM EST Procedure Visit [facility] 112 [facility] 120 [place] [address] Real Og DPM 3006 [facility] 5 [place] [address] documented as of this encounter Visit Diagnoses Not on filedocumented in this encounter Care Teams Bin Operator Relationship Specialty Start Date End Date Beni Nguyen MD 112 [facility] 110 [place] [address] PCP - General Internal Medicine 01/02/23 Beni Nguyen MD 112 [facility] 110 [place] [address] PCP - ACO Reach 01/12/23 Esther Connolly, HEATHER [address] [place], [place] [address] Clinical Advocate Family Medicine 09/27/24 11/08/24 Anastasia Rayo LPN 112 [place] [facility] 110 [place] [address] 11/08/24 documented as of this encounter
--- OUTSIDE RECORDS SUMMARY | 2025-05-07 13:49 | XMS_ITS | Encounter Summary ---
Author Organization [facility] Address [address] [place] [address] Care Team Providers Care Student Advisor Name Role Phone Beni Nguyen MD Primary Care Provider [phone] Beni Nguyen MD Unavailable [phone] Esther Connolly RN Unavailable Anastasia Rayo LPN Unavailable Encounter Details Date Type Department Care Team (Late st Contact Info) Description 08/04/2023 Abstract [facility] [address] [facility] 110 [place] [address] Beni Nguyen MD 112 [facility] 110 [place] [address] Social History Tobacco Use Types Packs/Day Years [...] Upcoming Encounters Date Type Department Care Team ([facility] st Contact Info) Description 07/03/2025 2:40 PM EST Procedure Visit [facility] 112 [facility] 120 [place] [address] Real Og, DPM 3006 [facility] 5 [place] [address] documented as of this encounter Visit Diagnoses Not on filedocumented in this encounter Care Teams Student Advisor Relationship Specialty Start Date End Date Beni Nguyen MD 112 [facility] 110 [place] [address] PCP - General Internal Medicine 01/02/23 Beni Nguyen MD [address] [facility] 110 [place] [address] PCP - ACO Reach 01/12/23 Esther Connolly RN [address] [place], [place] [address] Clinical Advocate Family Medicine 09/27/24 11/08/24 Anastasia Rayo LPN [address] [address] 11/08/24 documented as of this encounter
--- OUTSIDE RECORDS SUMMARY | 2025-05-07 13:49 | XMS_ITS | Encounter Summary ---
Author Organization [facility] Address [address] [place] [address] Care Team Providers Care Grain Elevator Clerk Name Role Phone Beni Nguyen MD Primary Care Provider [phone] Beni Nguyen MD Unavailable [phone] Esther Connolly RN Unavailable Anastasia Rayo LPN Unavailable Encounter Details Date Type Department Care Team (Late st Contact Info) Description 07/10/2024 Abstract [facility] [address] [facility] 110 [place] [address] Beni Nguyen MD 112 [facility] 110 [place] [address] Social History Tobacco Use Types Packs/Day Years [...] Recorded Patient Health Questionnaire-2 Score 0 10/05/2023 [facility] Occupat ional [...] Upcoming Encounters Date Type Department Care Team ([facility] st Contact Info) Description 07/03/2025 2:40 PM EST Procedure Visit [facility] 112 [facility] 120 [place] [address] Real Og DPM 3006 [facility] 5 [place] [address] documented as of this encounter Visit Diagnoses Not on filedocumented in this encounter Care Teams Grain Elevator Clerk Relationship Specialty Start Date End Date Beni Nguyen MD 112 [facility] 110 [place] [address] PCP - General Internal Medicine 01/02/23 Beni Nguyen MD 112 [facility] 110 [place] [address] PCP - ACO Reach 01/12/23 Esther Connolly, HEATHER [address] [place], [place] [address] Clinical Advocate Family Medicine 09/27/24 11/08/24 Anastasia Rayo LPN 112 [place] [facility] 110 [place] [address] 11/08/24 documented as of this encounter
--- OUTSIDE RECORDS SUMMARY | 2025-05-07 13:49 | XMS_ITS | Encounter Summary ---
Author Organization [facility] Address [address] [place] [address] Care Team Providers Care Rn Circulating Name Role Phone Beni Nguyen MD Primary Care Provider [phone] Beni Nguyen MD Unavailable [phone] Esther Connolly RN Unavailable [phone] Anastasia Rayo LPN Unavailable Encounter Details Date Type Department Care Team (Late st Contact Info) Description 07/15/2024 Abstract [facility] 112 [address] [facility] 110 [place] [address] Beni Nguyen MD 112 [facility] 110 [place] [address] Social History Tobacco Use Types Packs/Day Years [...] [facility] Contact [facility] Description 07/03/2025 2:40 PM EST Procedure Visit [facility] 112 [facility] 120 [place] [address] Real Og DPM 3006 [facility] 5 [place] [address] documented as of this encounter Visit Diagnoses Not on filedocumented in this encounter Care Teams Rn Circulating Relationship Specialty Start Date End Date Beni Nguyen MD 112 [facility] 110 [place] [address] PCP - General Internal Medicine 01/02/23 Beni Nguyen MD 112 [facility] 110 [place] [address] PCP - ACO Reach 01/12/23 Esther Connolly, HEATHER [address] [place], [place] [address] Clinical Advocate Family Medicine 09/27/24 11/08/24 Anastasia Rayo LPN 112 [place] [facility] 110 [place] [address] 11/08/24 documented as of this encounter
--- OUTSIDE RECORDS SUMMARY | 2025-05-07 13:49 | XMS_ITS | Clinical Summary ---
Author Organization [facility] Address [address] [place] [address] Care Team Providers Care Location Director Name Role Phone Beni Nguyen MD Primary Care Provider [phone] Beni Nguyen MD Unavailable [phone] Anastasia Rayo LPN Unavailable Allergies No known active allergies Medications Multiple Vitamins-Minerals (GNP ONE DAILY MENS 50+ADVANCED PO) 009 Active loratadine (Claritin) 10 MG tablet Take 10 mg by mouth Daily Active omega-3 (Fish Oil) 1000 MG capsule Take 2 capsules by mouth Daily Active nystatin (Mycostatin) [id number] UNIT/GM powder 023 Active apixaban (Eliquis) 5 MG tabletIndications:Pulmo nary embolism, unspecified chronicity, unspecified pulmonary embolism type, unspecified whether acute cor pulmonale present (HCC) TAKE 1 TABLET BY MOUTH TWICE DAILY 180 tablet 3 024 Active pyridostigmine (Mestinon) 60 MG tabletIndications:Myast henia gravis (HCC) TAKE 1 TABLET BY MOUTH IN THE MORNING AND 1 TABLET BY MOUTH AT NOON AND 1 TABLET BY MOUTH IN THE EVENING AND 1 TABLET BY MOUTH BEFORE BEDTIME 400 tablet 3 025 Active lisinopril 20 MG tabletIndications:Benosmel n essential hypertension Take 1 tablet (20 mg) by mouth Daily 90 tablet 3 025 2025 Active simvastatin (Zocor) 40 MG tabletIndications:Pure hypercholesterolemia TAKE 1 TABLET BY MOUTH ONCE DAILY IN THE EVENING 90 tablet 3 025 Active hydrALAZINE (Apresoline) 50 MG tabletIndications:Meeta richey essential hypertension Take 1 tablet (50 mg) by mouth in the morning and 1 tablet (50 mg) before bedtime. 180 tablet 3 025 2025 Active gabapentin (Neurontin) 300 MG capsuleIndications:Type 2 diabetes mellitus with diabetic neuropathy, without long-term current use of insulin (HCC) TAKE 1 CAPSULE BY MOUTH IN THE MORNING AND 1 CAPSULE BY MOUTH BEFORE BEDTIME 180 capsule 3 025 Active Additional Information Patient taking differently: 600 mg Oral 2 times daily, Morning, Bedtime, Reported on 04/01/2025 potassium chloride CR (Klor-Con M10) 10 MEQ ER tabletIndications:Hypok alemia TAKE 1 TABLET BY MOUTH IN THE MORNING AND 1 TABLET BY MOUTH BEFORE BEDTIME TAKE WITH FOOD 180 tablet 3 025 Active predniSONE (Deltasone) 10 MG tabletIndications:Myast henia gravis (HCC) TAKE 1 AND 1/2 TABLETS BY MOUTH DAILY 135 tablet 025 Active furosemide (Lasix) 20 MG tabletIndications:Local ized edema Take 1-2 tablets (20-40 mg) by mouth Daily 180 tablet 3 025 2025 Active spironolactone (Aldactone) 25 MG tablet Take 25 mg by mouth Daily 025 Active baclofen (Lioresal) 10 MG tabletIndications:Cervi nabila stenosis of spinal canal TAKE 1 TABLET BY MOUTH WITH FOOD OR MILK 3 TIMES DAILY 270 tablet 3 025 Active oxyCODONE-acetaminophen (Percocet) 5-325 MG tabletIndications:Pain Take 1 tablet by mouth every 12 (twelve) hours if needed for moderate pain or severe pain 60 tablet 025 2024 Active Problems Problem Noted Date Diagnosed [...] exertion 12/27/2022 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 Hypercoagulable state (HHS-HCC) 12/27/2022 Hypokalemia 12/27/2022 Hyponatremia 12/27/2022 Loss of [...] Encounters Date Type Department Care Team Description 05/05/2025 [facility] [address] [facility] [address] [place] [address] Beni Nguyen MD 05/05/2025 [facility] [address] [facility] [address] [place] [address] Beni Nguyen MD 05/05/2025 [facility] [address] [facility] [address] [place] [address] Beni Nguyen MD 05/05/2025 [facility] [address] [facility] [address] [place] [address] Beni Nguyen MD 05/02/2025 [facility] [address] [facility] [address] [place] [address] Beni Nguyen MD 04/24/2025 2:50 PM EDT Procedure Visit [facility] [address] [facility] [address] [place] [address] Real Og, DPM 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cosis of toenails of both feet (Primary Dx); Venous insufficiency 04/24/2025 Bamboo flowsheet [facility] [address] [facility] [address] [place] [address] Real Og DPM 04/24/2025 Travel 04/23/2025 Abstract [facility] [address] [facility] [address] [place] [address] Beni Nguyen MD 04/17/2025 Abstract [facility] [address] [facility] [address] [place] [address] Beni Nguyen MD 04/01/2025 11:30 AM EDT Office Visit [facility] [address] [facility] [address] [place] [address] Leela Cherry, CORD SPLICER Gross hematuria (Primary Dx); Lumbosacral spondylosis without myelopathy 04/01/2025 Refill [facility] [address] [facility] [address] [place] [address] Leela Cherry, CORD SPLICER Pain 04/01/2025 Bamboo flowsheet [facility] [address] [facility] [address] [place] [address] Leela Cherry, CORD SPLICER 04/01/2025 Travel 03/28/2025 Travel 03/27/2025 Abstract [facility] [address] [facility] [address] [place] [address] Beni Nguyen MD 03/20/2025 Patient Outreach [facility] [address] [place] [address] Anastasia Rayo LPN 03/20/2025 Patient Outreach [facility] [address] [place] [address] Anastasia Rayo LPN 03/19/2025 Abstract [facility] [address] [facility] [address] [place] [address] Beni Nguyen MD 03/18/2025 Abstract [facility] [address] [facility] [address] [place] [address] Beni Nguyen MD 03/07/2025 Abstract [facility] [address] [facility] [address] [place] [address] Beni Nguyen MD 02/28/2025 Results Follow-Up [facility] [address] [address] [place] [address] Merry Grimes LPN [facility] CK, ALL CKMB 02/27/2025 Abstract [facility] [address] [facility] [address] [place] [address] Beni Nguyen MD 02/26/2025 Refill [facility] [address] [place] [address] Beni Nguyen MD Cervical stenosis of spinal canal 02/26/2025 Telephone [facility] [address] [facility] [address] [place] [address] Beni Nguyen MD 02/26/2025 Clinisync Result Encounter [facility] External Department Unsolicited Leela Cherry NP 02/26/2025 Refill [facility] [address] [place] [address] Merry Grimes LPN Cervical stenosis of spinal canal 02/25/2025 Refill [facility] [address] [place] [address] Beni Nguyen MD Cervical stenosis of spinal canal 02/24/2025 Clinisync Result Encounter [facility] External Department Unsolicited Provider, Generic External Data 02/24/2025 Clinisync Result Encounter [facility] External Department Unsolicited Provider, Generic External Data 02/24/2025 Abstract [facility] [address] [facility] [address] [place] [address] Beni Nguyen MD 02/24/2025 Abstract [facility] [address] [place] [address] Beni Nguyen MD 02/18/2025 11:30 AM EDT Office Visit [facility] [address] [facility] [address] [place] [address] Leela Cherry, CORD SPLICER Cellulitis of right lower extremity (Primary Dx); Muscle pain; Trigger middle finger of right hand; Pain 02/18/2025 Patient Outreach [facility] [place] [address] [place] [address] Anastasia Rayo LPN 02/18/2025 Telephone [facility] [address] [facility] [address] [place] [address] Leela Cherry, ANAMARIA 02/18/2025 Bamboo flowsheet [facility] [address] [facility] [address] [place] [address] Leela Cherry, CORD SPLICER 02/18/2025 Travel 02/17/2025 Abstract [facility] [address] [facility] [address] [place] [address] Beni Nguyen MD 02/14/2025 Abstract [facility] [address] [facility] [address] [place] [address] Beni Nguyen MD 02/14/2025 Abstract [facility] [address] [facility] [address] [place] [address] Beni Nguyen MD 02/05/2025 Abstract [facility] [address] [facility] [address] [place] [address] Beni Nguyen MD from Last 3 Months Immunizations Immunization Administration [...] Recorded Patient Health Questionnaire-2 Score 2 04/01/2025 [facility] - Occupational Stress Questionnaire Answer Date [...] Sign Reading Time Taken Comments Blood Pressure 138/68 04/01/2025 11:37 AM EDT Pulse 80 04/01/2025 11:37 AM EDT Temperature 36.7 C (98 F) 11/06/2023 12:54 PM EDT Respiratory Rate 16 04/24/2025 2:34 PM EDT Oxygen Saturation 94% 04/01/2025 11:37 AM EDT Inhaled Oxygen Concentration - - Weight 141 kg (310 lb) 04/24/2025 2:34 PM EDT Height 172.7 cm (5' 8 ) 04/24/2025 2:34 PM EDT Body Mass Index 47.14 04/24/2025 2:34 PM EDT Plan of Treatment Upcoming Encounters Date Type Department Care Team ([facility] st Contact Info) Description 07/03/2025 2:40 PM EST Procedure Visit [facility] [address] [facility] [address] [place] [address] Real Og DPM [address] [facility] [address] [place] [address] Health Maintenance Due Date Last Done Comments Diabetes: Retinopathy Screening 1955 Diabetes: Urine Protein Screening 08/17/2021 08/17/2020, 05/27/2019, 03/15/2018 Diabetes: Hemoglobin A1C 12/16/2024 025, 09/25/2023, 03/31/2023, Additional history exists Influenza Vaccine (#1) 2025 4, 06/22/2023, 07/13/2022, Additional history exists Pneumococcal Vaccine: 65+ Years Completed 11/30/2017, 08/06/2016, 10/26/2015, Additional history exists Procedures Procedure Name Priority Date/Time Associated Diagnosis Comments POCT URINALYSIS DIPSTICK Routine 04/01/2025 12:04 PM EDT Gross hematuria ALL CKMB Routine 02/26/2025 11:50 AM EDT CCF CK Routine 02/26/2025 11:50 AM EDT MR LUMBAR SPINE WO CON 02/24/2025 7:31 PM EDT XR LUMBAR SPINE 6V W BENDING 02/24/2025 4:27 PM EDT POCT GLYCATED HEMOGLOBIN, TOTAL Routine 09/17/2024 2:55 PM EST Type 2 diabetes mellitus with diabetic neuropathy, without long-term current use of insulin (HCC) MICROALBUMIN / CREATININE URINE RATIO Routine 08/17/2020 from Last 3 Months or Most Recently Relevant to Health Maintenance Results * POCT Urinalysis dipstick (04/01/2025 12:04 PM EDT) Color, UA Yellow Clarity, UA Clear Glucose, UA Negative Negative - 1999(110) ++++ mg/dL Bilirubin, UA Negative Negative - 4(70) +++ mg/dL Ketones, UA Negative Negative - 160(16) ++++ mg/dL Spec Grav, UA 1.005 1 - 1.03 Blood, UA Negative Negative - 50 Rodri/mcL pH, UA 5.0 5 - 9 Protein, UA Negative Negative - 1999(20) ++++ mg/dL Urobilinogen, UA 0.2 0.2 - 12 mg/dL Leukocytes, UA Negative Negative - 500+++ Danilo/mcL Nitrite, UA Negative Negative - Positive Urine 04/01/2025 12:0 4 PM EDT Leela Cherry NP POINT OF CARE TEST ENTER/BRITTANI T ORDERABLES Final Result * [facility] CK (02/26/2025 11:50 AM EDT) TB CREATININE KINASE 122 39 - 308 U/L TB 02/26/2025 11:5 0 AM EDT 02/26/2025 12:40 PM EDT Narrative [facility]IN[facility] - 02/26/2025 1:06 PM EDT [facility] DROP OFF Leela Cherry CORD SPLICER CL[facility] Final Result Performing Organization Address [facility] Co de Phone Number CL[facility]NC TB * ALL CKMB (02/26/2025 11:50 AM EDT) [facility] CREATININE KINASE MB 2.35 <=3.60 ng/mL TB 02/26/2025 11:5 0 AM EDT 02/26/2025 12:40 PM EDT Narrative [facility] - 02/26/2025 1:06 PM EDT [facility] DROP OFF Leela Cherry NP [facility] Final Result Performing Organization Address City/[facility]/ZIP Co de Phone Number [facility] * MR LUMBAR SPINE WO CON (02/24/2025 7:31 PM EDT) Anatomical Region Laterality Modality Other 02/24/2025 7:31 PM EDT Narrative 02/24/2025 7:34 PM EDT [address] [address] Magnetic Resonance Report Signed Patient: ANKUR GARCIA MR#: [id number] : 1945 Acct:[id number] Age/Sex: 79 / M ADM Date: 02/24/25 Loc: MRI Attending Dr: Saul Kyle CORD SPLICER Ordering Physician: Saul Wright NP Date of Service: 02/24/25 Procedure(s): MR lumbar spine wo con Accession Number(s): [id number] cc: BENI NGUYEN ; Saul Wright NP [place] [address] Patient Name: ANKUR GARCIA MRN: [facility]:[id number] date: 1945 Sex: M Assigned Patient Location: MRI Current Patient Location: MRI Accession/Order Number: [id number] Exam Date: 02/24/2025 19:25 Report Date: 02/24/2025 19:31 At the request of: SAUL WRIGHT NP Procedure: MR lumbar spine wo [...] Menjivar M.D. 02/24/2025 7:31 PM Dictation Location: [place] [address] Electronically authenticated by: [id number] Y Date: 02/24/2025 19:31 Dictated By: Mihai Menjivar M.D. Signed By: 02/24/251933 DD/ 30 TD/TT: Optical Store Manager: Procedure Note Radiology, Radiologist, MD - 02/24/2025 [facility] [place] [id number] Magnetic Resonance Report Signed Patient: ANKUR GARCIA#: [id number] : 1945cct:[id number] Age/Sex: 79 / MADM Date: 02/24/25 Loc: MRI Attending Dr: Saul Wright NP Ordering Physician: Saul Wright NP Date of Service: 02/24/25 Procedure(s): MR lumbar spine wo con Accession Number(s): [id number] cc: BENI NGUYEN ; Saul Wright NP [place] [id number] Patient Name: ANKUR GARCIA MRN: [id number] date: 1945 Sex: M Assigned Patient Location: MRI Current Patient Location: MRI Accession/Order Number: [id number] Exam Date: 02/24/2025 19:25 Report Date: 02/24/2025 19:31 At the request of: SAUL WRIGHT NP Procedure: MR lumbar spine wo con MR lumbar spine wo con 02/24/2025 2:26 PM SIGNS AND SYMPTOMS: Spinal stenosis, lumbar region with neurogenic claudication PROTOCOL: Multiplanar multisequence MR images of the lumbar spine withoutIV contrast COMPARISON: 12/22/2023 FINDINGS: There is 5 mm of anterolisthesis of L5 upon S1. The bones are otherwise in anatomic alignment. There is preservation of vertebral body heights. There is severe disc height loss at L1-L2, L3-L4, and L4-5.There is mild disc height loss throughout otherwise. There is Modic type Iendplate edema at L2-L3 and L3-L4. The marrow signal is within normal limits, otherwise. The conus terminates at the L1-L2 intervertebral disc level. No epidural or paraspinous fluid collection is appreciated. Simple cysts are noted in the renal cortices requiring no further follow-up. At T12-L1: There is a broad-based disc bulge with facet hypertrophy and ligamentum flavum thickening. There is moderate spinal canal stenosiswith moderate to severe right and moderate left neural foraminal narrowingsimilar to the prior exam. At L1-L2: There is a circumferential disc bulge with endplate osteophyte formation. There is facet hypertrophy with ligamentum flavum thickening contributing to moderate spinal canal narrowing with severe right and mild left neural foraminal narrowing. Is mass effect on the exiting right U1mrxdl roots, similar to the prior exam. At L2-L3: There is a broad-based disc bulge with facet hypertrophy and ligamentum flavum thickening. There is moderate to severe spinal canal stenosis with moderate right and mild left neural foraminal stenosis. At L3-L4: There is a circumferential disc bulge with facet hypertrophy and ligamentum flavum thickening. There is severe narrowing of the spinalcanal with mass effect on the traversing nerve roots of the cauda equina. Thisis worse when compared to the prior exam. There is moderate to severebilateral neural foraminal stenosis which is also slightly worse. At L4-L5: There is a circumferential disc bulge with facet hypertrophy and ligamentum flavum thickening contributing to severe narrowing of spinalcanal with mass effect on the traversing nerve roots of the cauda equina. Thereis severe left and moderate right neural foraminal stenosis similar to theprior exam with similar mass effect on the exiting left L4 nerve roots. At L5-S1: There is a broad-based disc bulge with endplate osteophyteformation and facet hypertrophy. There is mild spinal canal stenosis with severeleft neural foraminal narrowing. Is mass effect on the exiting left L5 nerve roots. MR/MR lumbar spine wo con IMPRESSION: At L3-L4: There is a circumferential disc bulge with facet hypertrophy and ligamentum flavum thickening. There is severe narrowing of the spinalcanal with mass effect on the traversing nerve roots of the cauda equina. Thisis worse when compared to the prior exam. There is moderate to severebilateral neural foraminal stenosis which is also slightly worse. At L4-L5: There is a circumferential disc bulge with facet hypertrophy and ligamentum flavum thickening contributing to severe narrowing of spinalcanal with mass effect on the traversing nerve roots of the cauda equina. Thereis severe left and moderate right neural foraminal stenosis similar to theprior exam with similar mass effect on the exiting left L4 nerve roots. At L5-S1: There is a broad-based disc bulge with endplate osteophyteformation and facet hypertrophy. There is mild spinal canal stenosis with severeleft neural foraminal narrowing. Is mass effect on the exiting left L5 nerve roots. Impression dictated by: Mihai Menjivar M.D. 02/24/2025 7:31 PM Dictation Location: [place] [address] Electronically authenticated by: [id number] Y Date: 9:31 Dictated By: Mihai Menjivar M.D. Signed By:02/24/251933 DD/ 30 TD/TT: Optical Store Manager: Generic External Data Provider [facility] IMAGING Final Result * XR LUMBAR SPINE 6V W BENDING (02/24/2025 4:27 PM EDT) Anatomical Region Laterality Modality Other 02/24/2025 4:27 PM EDT Narrative 02/24/2025 4:29 [place] [address] XRay Report Signed Patient: ANKUR GARCIA MR#: [id number] : 1945 Acct:[id number] Age/Sex: 79 / M ADM Date: 02/24/25 Loc: MRI Attending Dr: Saul Wright NP Ordering Physician: Saul Wright NP Date of Service: 02/24/25 Procedure(s): XR lumbar spine 6V w bending Accession Number(s): [id number] cc: BENI NGUYEN ; Saul Wright NP [place] [id number] Patient Name: ANKUR GARCIA MRN: [id number] date: 1945 Sex: M Assigned Patient Location: MRI Current Patient Location: MRI Accession/Order Number: [id number] Exam Date: 02/24/2025 16:24 Report Date: 02/24/2025 16:27 At the request of: SAUL WRIGHT NP Procedure: XR lumbar spine 6V [...] Mock M.D. 02/24/2025 4:27 PM Dictation Location: [place] [address] Electronically authenticated by: [id number] Y Date: 02/24/2025 16:27 Dictated By: Aaron Mock D.O. Signed By: 02/24/259 DD/ 26 TD/TT: Optical Store Manager: Procedure Note Radiology, Radiologist, MD - 02/24/2025 [place] [address] XRay Report Signed Patient: ANKUR GARCIA AMR#: [id number] : 1945cct:[id number] Age/Sex: 79 / MADM Date: 02/24/25 Loc: MRI Attending Dr: Saul Wright NP Ordering Physician: Saul Wright NP Date of Service: 02/24/25 Procedure(s): XR lumbar spine 6V w bending Accession Number(s): [id number] cc: BENI NGUYEN ; Saul Wright NP [facility] [place] [address] Patient Name: ANKUR GARCIA MRN: [id number] date: 1945 Sex: M Assigned Patient Location: MRI Current Patient Location: MRI Accession/Order Number: [id number] Exam Date: 02/24/2025 16:24 Report Date: 02/24/2025 16:27 At the request of: SAUL WRIGHT NP Procedure: XR lumbar spine 6V w bending 6 views Lumbar Spinewith bending HISTORY: Chronic low back pain. Bilateral leg weakness COMPARISON: None POSTSURGICAL CHANGES: None BONY ALIGNMENT: Scoliosis HYPERMOBILITY:No hypermobility LISTHESIS:Mild degenerative listhesis FRACTURE: None DEGENERATIVE CHANGES: Extensive multilevel spondylosis and facetdegeneration SOFT TISSUES: Atherosclerosis BONY MINERALIZATION:Decreased XR/XR lumbar spine 6V w bending IMPRESSION: No hypermobility. Extensive multilevel degenerative changes. Scoliosis. Decreased bony mineralization. Impression dictated by: Aaron Mock M.D. 02/24/2025 4:27 PM Dictation Location: [place] [address] Electronically authenticated by: [id number] Y Date: 6:27 Dictated By: Aaron Mock D.O. Signed By:02/24/25 1629 DD/ 1627 TD/TT: Optical Store Manager: Generic External Data Provider [facility] IMAG[facility] Final Result * (ABNORMAL) POCT Glycated hemoglobin, [...] LINN LAB URINE ORDERABLES Final Res ult [facility] from Last 3 Months or Most Recently Relevant to Health Maintenance Insurance MEDICARE [employer] Care Teams Location Director Relationship Specialty Start Date End Date Beni Nguyen MD [address] [address] PCP - General Internal Medicine 01/02/23 Beni Nguyen MD [address] [facility] [address] [place] [address] PCP - ACO Reach 01/12/23 Anastasia Rayo LPN [address] [address] 11/08/24
--- OUTSIDE RECORDS SUMMARY | 2025-05-07 13:49 | XMS_ITS | Patient Health Record ---
Author Organization [facility] in [place] Address [address] [place] [address] Care Team Providers Care Titrator Name Role Phone Beni Nguyen MD Primary Care Provider Ivan Velazquez [phone] Allergies No Known Allergies Reason For Referral No Information Medications Medication SIG (Take, Route, Frequency, Duration) Notes Start Date End Date Status Potassium Chloride ER 10 MEQ 1 tablet with food Orally Twice a day Active Baclofen 10 MG as directed Orally Active predniSONE 10 MG 1 tablet Orally Active Eliquis 5 MG 1 tablet Orally Twice a day; Duration: 30 day(s) Active pyRIDostigmine [place] 60 MG 1 tablet Orally every 4 hrs; Duration: 30 day(s) Active Lisinopril 20 MG Orally [...] 20 MG 1 tablet Orally Once a day; Duration: 30 day(s) Active Triamterene-HCTZ 37.5-25 MG 1 tablet in the morning Orally Once a day Active Gabapentin 300 MG 1 capsule Orally Once a day; Duration: 30 day(s) Active Amiodarone HCl 200 MG TAKE 1 TABLET BY MOUTH IN THE MORNING Oral; Duration: 30 Days Not-Taking hydrALAZINE HCl 50 MG 1 tablet with food Orally Three times a day; Duration: 30 day(s) Active Myrbetriq 50 MG 1 tablet Orally Once a day; Duration: 30 day(s) * Lot # [id number], Expiration Date: 10/202409/08/2022 Not-Taking Immunizations Vaccine Route Administration Date Status Comme nts Flu, Fluzone High-Dose (2022 -2023) (47927) 65 yrs+ Unknown 06/22/2023 Administered Pneumococcal (Pneumovax 23) Unknown 11/30/2017 Administ ered Pneumococcal (Prevnar 13) Unknown 10/26/2015 Administer ed [...] Problem Status W/U Status Risk Notes Problem Essential hypertension (83673442) Essential (primary) hypertension (I10) Active confirmed Problem Myasthenia gravis without exacerbation (57457154232547 ) Myasthenia gravis without (acute) exacerbation (G70.00) Active confirmed Problem Excess skin of eyelid (222123709) Dermatochalasis of right eye, unspecified eyelid (H02.833) Active confirmed Problem Excess skin of eyelid (048167834) Dermatochalasis of left eye, unspecified eyelid (H02.836) Active confirmed Problem Paroxysmal atrial fibrillation (937262055) Paroxysmal atrial fibrillation (I48.0) Active confirmed Problem Morbid obesity (918045924) Morbid obesity (E66.01) Active confirmed Problem Myasthenia gravis (61560649) Myasthenia gravis (G70.00) Active confirmed Problem Obstructive sleep apnea syndrome (74344955) JAMISON (obstructive sleep apnea) (G47.33) Active confirmed Problem Obstructive sleep apnea syndrome (33259390) JAMISON on CPAP (G47.33) Active confirmed Problem History of pulmonary embolus (100040250) History of pulmonary embolism (Z86.711) Active confirmed Problem Malignant tumor of urinary bladder (514215905) Malignant neoplasm of urinary bladder, unspecified site (C67.9) Active confirmed Problem Nuclear senile cataract (712462725) 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 Problem Epiretinal membrane (583729423) Macular pucker, right eye (H35.371) Active confirmed OP'D. Problem Serous retinal detachment (51711019) Retinal detachment, right (H33.21) Active confirmed OP'D. Problem Pseudophakia of right eye (28900823623414 102) Pseudophakia of right eye (Z96.1) Active confirmed Problem Myasthenia gravis without exacerbation (43303562057186 ) MG, ocular (myasthenia gravis) (G70.00) Active confirmed DOING WELL. SAME TX. ARRANGE FOR F/U IN [facility]). Problem Pseudophakia of right eye (96550453664923 102) Pseudophakia, right eye (Z96.1) Active confirmed Problem Myasthenic crisis (21390799) Myasthenic crisis (G70.01) Active confirmed Plan Of Treatment No Information Insurance Providers Payer Name Payer Address Payer Phone Subscriber Number Group Number Insured Name Patient Relationship to Insured Coverage Start Date Coverage End Date [place] [address] [place] [address] [id number] Ankur Reilly Self - patient is the insured 9 [facility] [address] [place] [address] [phone] [id number] PLAN F Ankur Reilly Self - patient [...] Reason Date(Month/Year) Myasthenic Crisis with acute respiratory failure-[facility] 05/09/2023
--- OUTSIDE RECORDS SUMMARY | 2025-05-07 13:49 | XMS_ITS | Encounter Summary ---
Author Organization [facility] Address [address] [place] [address] Care Team Providers Care Electric Distribution Engineer Name Role Phone Beni Nguyen MD Primary Care Provider [phone] Beni Nguyen MD Unavailable [phone] Esther Connolly RN Unavailable Anastasia Rayo LPN Unavailable Encounter Details Date Type Department Care Team (Late st Contact Info) Description 09/01/2023 Abstract [facility] [address] [facility] 110 [place] [address] Beni Nguyen MD 112 [facility] 110 [place] [address] Social History Tobacco Use Types Packs/Day Years [...] often do you attend chur ch or worship services? Never 03/17/2023 Do you [...] 112 [facility] 120 [place] [address] Real Og, DPM 3006 [facility] 5 [place] [address] documented as of this encounter Visit Diagnoses Not on filedocumented in this encounter Care Teams Electric Distribution Engineer Relationship Specialty Start Date End Date Beni Nguyen MD 112 [place] [facility] 110 [place] [address] PCP - General Internal Medicine 01/02/23 Beni Nguyen MD [address] [facility] 110 [place] [address] PCP - ACO Reach 01/12/23 Esther Connolly RN [address] [place], [place] [address] Clinical Advocate Family Medicine 09/27/24 11/08/24 Anastasia Rayo LPN [address] [address] 11/08/24 documented as of this encounter
--- OUTSIDE RECORDS SUMMARY | 2025-05-07 13:49 | XMS_ITS | Encounter Summary ---
Author Organization [facility] Address [address] [place] [address] Care Team Providers Care Appliances Sample Maker Name Role Phone Beni Nguyen MD Primary Care Provider [phone] Beni Nguyen MD Unavailable [phone] Esther Connolly RN Unavailable Anastasia Rayo LPN Unavailable Encounter Details Date Type Department Care Team (Late st Contact Info) Description 07/08/2024 Abstract [facility] [address] [facility] 110 [place] [address] Beni Nguyen MD 112 [facility] 110 [place] [address] Social History Tobacco Use Types Packs/Day Years [...] often do you attend chur ch or amish services? Never 03/17/2023 Do you [...] Recorded Patient Health Questionnaire-2 Score 0 10/05/2023 [facility]at ional Health [...] PODIATRY 112 [facility] 120 [place] [address] Real Og DPM 3006 [facility] 5 [place] [address] documented as of this encounter Visit Diagnoses Not on filedocumented in this encounter Care Teams Appliances Sample Maker Relationship Specialty Start Date End Date Beni Nguyen MD 112 [facility] 110 [place] [address] PCP - General Internal Medicine 01/02/23 Beni Nguyen MD 112 [facility] 110 [place] [address] PCP - ACO Reach 01/12/23 Esther Connolly, HEATHER [address] [place], [place] [address] Clinical [facility] Family Medicine 09/27/24 11/08/24 Anastasia Rayo LPN 112 [place] [facility] 110 [place] [address] 11/08/24 documented as of this encounter
--- OUTSIDE RECORDS SUMMARY | 2025-05-07 13:49 | XMS_ITS | Encounter Summary ---
Author Organization [facility] Address [address] [place] [address] Care Team Providers Care Broadcast Systems Engineer Name Role Phone Beni Nguyen MD Primary Care Provider [phone] Beni Nguyen MD Unavailable [phone] Esther Connolly RN Unavailable [phone] Anastasia Rayo LPN Unavailable Encounter Details Date Type Department Care Team (Late st Contact Info) Description 07/26/[address] [facility] [address] [facility] 110 [place] [address] Beni Nguyen MD 112 [facility] 110 [place] [address] Social History Tobacco Use Types Packs/Day Years [...] any clubs o r organizations such as presybeterian groups, unions, fraternal or athletic groups, or [...] heating? Not hard at all 03/17/2023 [facility] [...] Upcoming Encounters Date Type Department Care Team ([facility] st Contact Info) Description 07/03/2025 2:40 PM EST Procedure Visit [facility] PODIATRY 112 [facility] 120 [place] [address] Real Og, DPM 3006 [facility] 5 [place] [address] documented as of this encounter Visit Diagnoses Not on filedocumented in this encounter Care Teams Broadcast Systems Engineer Relationship Specialty Start Date End Date Beni Nguyen MD 112 [place] [facility] 110 [place] [address] PCP - General Internal Medicine 01/02/23 Beni Nguyen MD [address] [facility] 110 [place] [address] PCP - ACO Reach 01/12/23 Esther Connolly RN [address] [place], [place] [address] Clinical Advocate Family Medicine 09/27/24 11/08/24 Anastasia Rayo LPN [address] [address] 11/08/24 documented as of this encounter
--- OUTSIDE RECORDS SUMMARY | 2025-05-07 13:49 | XMS_ITS | Encounter Summary ---
Author Organization [facility] Address [address] [place] [address] Care Team Providers Care Shot Fireman Name Role Phone Beni Nguyen MD Primary Care Provider [phone] Beni Nguyen MD Unavailable [phone] Esther Connolly RN Unavailable Anastasia Rayo LPN Unavailable Encounter Details Date Type Department Care Team (Late st Contact Info) Description 08/01/2024 Abstract [facility] [address] [facility] 110 [place] [address] Beni Nguyen MD 112 [facility] 110 [place] [address] Social History Tobacco Use Types Packs/Day Years [...] any clubs o r organizations such as judaism groups, unions, fraternal or athletic groups, or [...] Questionnaire-2 Score 0 10/05/2023 [facility] - [...] Upcoming Encounters Date Type Department Care Team ([facility] st Contact Info) Description 07/03/2025 2:40 PM EST Procedure Visit [facility] PODIATRY 112 [facility] 120 [place] [address] Real Og DPM 3006 [facility] 5 [place] [address] documented as of this encounter Visit Diagnoses Not on filedocumented in this encounter Care Teams Shot Fireman Relationship Specialty Start Date End Date Beni Nguyen MD 112 [facility] 110 [place] [address] PCP - General Internal Medicine 01/02/23 Beni Nguyen MD 112 [facility] 110 [place] [address] PCP - ACO Reach 01/12/23 Esther Connolly, HEATHER [address] [place], [place] [address] Clinical Advocate Family Medicine 09/27/24 11/08/24 Anastasia Rayo LPN 112 [place] 110 [place] [address] 11/08/24 documented as of this encounter
--- OUTSIDE RECORDS SUMMARY | 2025-05-07 13:49 | XMS_ITS | Encounter Summary ---
Author Organization [facility] Address [address] [place] [address] Care Team Providers Care Bilingual Manager Name Role Phone Beni Nguyen MD Primary Care Provider [phone] Beni Nguyen MD Unavailable [phone] Esther Connolly RN Unavailable Anastasia Rayo LPN Unavailable Encounter Details Date Type Department Care Team (Late st Contact Info) Description 07/08/2024 Abstract [facility] [address] [facility] 110 [place] [address] Beni Nguyen MD 112 [facility] 110 [place] [address] Social History Tobacco Use Types Packs/Day Years [...] any clubs o r organizations such as restorationist groups, unions, fraternal or athletic groups, or [...] Recorded Patient Health Questionnaire-2 Score 0 10/05/2023 [facility] Occupat ional Health [...] CI PODIATRY 112 [facility] 120 [place] [address] Real Og DPM 3006 [facility] 5 [place] [address] documented as of this encounter Visit Diagnoses Not on filedocumented in this encounter Care Teams Bilingual Manager Relationship Specialty Start Date End Date Beni Nguyen MD 112 [facility] 110 [place] [address] PCP - General Internal Medicine 01/02/23 Bein Nguyen MD 112 [facility] 110 [place] [address] PCP - ACO Reach 01/12/23 Esther Connolly, HEATHER [address] [place], [place] [address] Clinical Advocate Family Medicine 09/27/24 11/08/24 Anastasia Rayo LPN 112 [place] [facility] 110 [place] [address] 11/08/24 documented as of this encounter
--- OUTSIDE RECORDS SUMMARY | 2025-05-07 13:49 | XMS_ITS | Encounter Summary ---
Author Organization [facility] Address [address] [place] [address] Care Team Providers Care Electronics Supervisor Name Role Phone Beni Nguyen MD Primary Care Provider [phone] Beni Nguyen MD Unavailable [phone] Esther Connolly RN Unavailable [phone] Anastasia Rayo LPN Unavailable Encounter Details Date Type Department Care Team (Late st Contact Info) Description 06/20/2024 Abstract [facility] [address] [facility] 110 [place] [address] Beni Nguyen MD 112 [facility] 110 [place] [address] Social History Tobacco Use Types Packs/Day Years [...] Recorded Patient Health Questionnaire-2 Score 0 10/05/2023 [facility] Occupat ional Health [...] ([facility] st Contact Info) Description 07/03/2025 2:40 PM EST Procedure Visit [facility] PODIATRY 112 [facility] 120 [place] [address] Real Og DPM 3006 [facility] 5 [place] [address] documented as of this encounter Visit Diagnoses Not on filedocumented in this encounter Care Teams Electronics Supervisor Relationship Specialty Start Date End Date Beni Nguyen MD 112 [facility] 110 [place] [address] PCP - General Internal Medicine 01/02/23 Beni Nguyen MD 112 [facility] 110 [place] [address] PCP - ACO Reach 01/12/23 Esther Connolly, HEATHER [address] [place], [place] [address] Clinical Advocate Family Medicine 09/27/24 11/08/24 Anastasia Rayo LPN 112 [place] [facility] 110 [place] [address] 11/08/24 documented as of this encounter
--- OUTSIDE RECORDS SUMMARY | 2025-05-07 13:49 | XMS_ITS | Encounter Summary ---
Author Organization [facility] Address [address] [place] [address] Care Team Providers Care Supervisor Locomotive Name Role Phone Beni Nguyen MD Primary Care Provider [phone] Beni Nguyen MD Unavailable [phone] Etsher Connolly RN Unavailable Anastasia Rayo LPN Unavailable Encounter Details Date Type Department Care Team (Late st Contact Info) Description 07/17/2024 Abstract [facility] [address] [facility] 110 [place] [address] Beni Nguyen MD 112 [facility] 110 [place] [address] Social History Tobacco Use Types Packs/Day Years [...] EST Procedure Visit [facility] PODIATRY 112 [facility] 120 [place] [address] Real Og DPM 3006 [facility] 5 [place] [address] documented as of this encounter Visit Diagnoses Not on filedocumented in this encounter Care Teams Supervisor Locomotive Relationship Specialty Start Date End Date Beni Nguyen MD 112 [facility] 110 [place] [address] PCP - General Internal Medicine 01/02/23 Beni Nguyen MD 112 [facility] 110 [place] [address] PCP - ACO Reach 01/12/23 Esther Connolly, HEATHER [address] [place], [place] [address] Clinical Advocate Family Medicine 09/27/24 11/08/24 Anastasia Rayo LPN 112 [place] [facility] 110 [place] [address] 11/08/24 documented as of this encounter
--- OUTSIDE RECORDS SUMMARY | 2025-05-07 13:49 | XMS_ITS | Encounter Summary ---
Author Organization [facility] Address [address] [place] [address] Care Team Providers Care Victim Advocate Name Role Phone Beni Nguyen MD Primary Care Provider Beni Nguyen MD Unavailable [phone] Esther Connolly RN Unavailable Anastasia Rayo LPN Unavailable Encounter Details Date Type Department Care Team (Late st Contact Info) Description 07/24/2024 Abstract [facility] [address] [facility] 110 [place] [address] Beni Nguyen MD 112 [facility] 110 [place] [address] Social History Tobacco Use Types Packs/Day Years [...] Health Questionnaire-2 Score 0 10/05/2023 [facility] [...] & Living Center st Contact Info) Description 07/03/2025 2:40 PM EST Procedure Visit [facility] PODIATRY 112 [facility] 120 [place] [address] Real Og DPM 3006 [facility] 5 [place] [address] documented as of this encounter Visit Diagnoses Not on filedocumented in this encounter Care Teams Victim Advocate Relationship Specialty Start Date End Date Beni Nguyen MD 112 [facility] 110 [place] [address] PCP - General Internal Medicine 01/02/23 Beni Nguyen MD 112 [facility] 110 [place] [address] PCP - ACO Reach 01/12/23 Esther Connolly, HEATHER [address] [place], [place] [address] Clinical Advocate Family Medicine 09/27/24 11/08/24 Anastasia Rayo LPN [address] [place] [facility] 110 [place] [address] 11/08/24 documented as of this encounter
--- OUTSIDE RECORDS SUMMARY | 2025-05-07 13:49 | XMS_ITS | Encounter Summary ---
Author Organization [facility] Address [address] [place] [address] Care Team Providers Care Palletizer Operator Name Role Phone Beni Nguyen MD Primary Care Provider [phone] Beni Nguyen MD Unavailable [phone] Esther Connolly RN Unavailable [phone] Anastasia Rayo LPN Unavailable Encounter Details Date Type Department Care Team (Late st Contact Info) Description 06/29/2023 Abstract [facility] [address] [facility] 110 [place] [address] Beni Nguyen MD 112 [facility] 110 [place] [address] Social History Tobacco Use Types Packs/Day Years [...] and heating? Not hard at all 03/17/2023 [facility] Occupat ional Health [...] ([facility] st Contact Info) Description 07/03/2025 2:40 PM EST Procedure Visit [facility] PODIATRY 112 [facility] 120 [place] [address] Real Og, DPM 3006 [facility] 5 [place] [address] documented as of this encounter Visit Diagnoses Not on filedocumented in this encounter Care Teams Palletizer Operator Relationship Specialty Start Date End Date Beni Nguyen MD 112 [place] [facility] 110 [place] [address] PCP - General Internal Medicine 01/02/23 Beni Nguyen MD [address] [facility] 110 [place] [address] PCP - ACO Reach 01/12/23 Esther Connolly RN [address] [place], [place] [address] Clinical Advocate Family Medicine 09/27/24 11/08/24 Anastasia Rayo LPN [address] [address] 11/08/24 documented as of this encounter
--- OUTSIDE RECORDS SUMMARY | 2025-05-07 13:49 | XMS_ITS | Encounter Summary ---
Author Organization [facility] Address [address] [place] [address] Care Team Providers Care Autocad Designer Name Role Phone Beni Nguyen MD Primary Care Provider Beni Nguyen MD Unavailable [phone] Esther Connolly RN Unavailable Anastasia Rayo LPN Unavailable Encounter Details Date Type Department Care Team (Late st Contact Info) Description 07/04/2023 Abstract [facility] [address] [facility] 110 [place] [address] Beni Nguyen MD 112 [facility] 110 [place] [address] Social History Tobacco Use Types Packs/Day Years [...] often do you attend chur ch or voodoo services? Never 03/17/2023 Do you [...] and heating? Not hard at all 03/17/2023 [facility] Occupat ional Health - Occupational [...] 112 [facility] 120 [place] [address] Real Og, DPM 3006 [facility] 5 [place] [address] documented as of this encounter Visit Diagnoses Not on filedocumented in this encounter Care Teams Autocad Designer Relationship Specialty Start Date End Date Beni Nguyen MD 112 [place] [facility] 110 [place] [address] PCP - General Internal Medicine 01/02/23 Beni Nguyen MD [address] [facility] 110 [place] [address] PCP - ACO Reach 01/12/23 Esther Connolly RN [address] [place], [place] [address] Clinical Advocate Family Medicine 09/27/24 11/08/24 Anastasia Rayo LPN [address] [address] 11/08/24 documented as of this encounter
--- OUTSIDE RECORDS SUMMARY | 2025-05-07 13:49 | XMS_ITS | Encounter Summary ---
Author Organization [facility] Address [address] [place] [address] Care Team Providers Care Digital Asset Manager Name Role Phone Beni Nguyen MD Primary Care Provider [phone] eBni Nguyen MD Unavailable [phone] Esther Connolly RN Unavailable [phone] Anastasia Rayo LPN Unavailable Encounter Details Date Type Department Care Team (Late st Contact Info) Description 07/15/2024 Abstract [facility] [address] [facility] 110 [place] [address] Beni Nguyen MD 112 [facility] 110 [place] [address] Social History Tobacco Use Types Packs/Day Years [...] EST Procedure Visit [facility] PODIATRY 112 [facility] 120 [place] [address] Real Og DPM 3006 [facility] 5 [place] [address] documented as of this encounter Visit Diagnoses Not on filedocumented in this encounter Care Teams Digital Asset Manager Relationship Specialty Start Date End Date Beni Nguyen MD 112 [facility] 110 [place] [address] PCP - General Internal Medicine 01/02/23 Beni Nguyen MD 112 [facility] 110 [place] [address] PCP - ACO Reach 01/12/23 Esther Connolly, HEATHER [address] [place], [place] [address] Clinical Advocate Family Medicine 09/27/24 11/08/24 Anastasia Rayo LPN 112 [place] [facility] 110 [place] [address] 11/08/24 documented as of this encounter
--- OUTSIDE RECORDS SUMMARY | 2025-05-07 13:49 | XMS_ITS | Encounter Summary ---
Author Organization [facility] Address [address] [place] [address] Care Team Providers Care Awake Overnight Monitor Name Role Phone Beni Nguyen MD Primary Care Provider [phone] Beni Nguyen MD Unavailable [phone] Esther Connolly RN Unavailable Anastasia Rayo LPN Unavailable Encounter Details Date Type Department Care Team (Late st Contact Info) Description 06/24/2024 Abstract [facility] [address] [facility] 110 [place] [address] Beni Nguyen MD 112 [facility] 110 [place] [address] Social History Tobacco Use Types Packs/Day Years [...] [facility] 112 [facility] 120 [place] [address] Real Og DPM 3006 [facility] 5 [place] [address] documented as of this encounter Visit Diagnoses Not on filedocumented in this encounter Care Teams Awake Overnight Monitor Relationship Specialty Start Date End Date Beni Nguyen MD 112 [facility] 110 [place] [address] PCP - General Internal Medicine 01/02/23 Beni Nguyen MD 112 [facility] 110 [place] [address] PCP - ACO Reach 01/12/23 Esther Connolly, HEATHER [address] [place], [place] [address] Clinical Advocate Family Medicine 09/27/24 11/08/24 Anastasia Rayo LPN 112 [facility] 110 [place] [address] 11/08/24 documented as of this encounter
--- OUTSIDE RECORDS SUMMARY | 2025-05-07 13:49 | XMS_ITS | Encounter Summary ---
Author Organization [facility] Address [address] [place] [address] Care Team Providers Care Detail Technician Name Role Phone Beni Nguyen MD Primary Care Provider [phone] Beni Nguyen MD Unavailable [phone] Esther Connolly RN Unavailable Anastasia Rayo LPN Unavailable Encounter Details Date Type Department Care Team (Late st Contact Info) Description 07/11/2024 Abstract [facility] 112 [address] [facility] 110 [place] [address] Beni Nguyen MD 112 [facility] 110 [place] [address] Social History Tobacco Use Types Packs/Day Years [...] CI PODIATRY 112 [facility] 120 [place] [address] Real Og DPM 3006 [facility] 5 [place] [address] documented as of this encounter Visit Diagnoses Not on filedocumented in this encounter Care Teams Detail Technician Relationship Specialty Start Date End Date Beni Nguyen MD 112 [facility] 110 [place] [address] PCP - General Internal Medicine 01/02/23 Beni Nguyen MD 112 [facility] 110 [place] [address] PCP - ACO Reach 01/12/23 Esther Connolly, HEATHER [address] [place], [place] [address] Clinical Advocate Family Medicine 09/27/24 11/08/24 Anastasia Rayo LPN 112 [facility] [place] 110 [place] [address] 11/08/24 documented as of this encounter
--- OUTSIDE RECORDS SUMMARY | 2025-05-07 13:49 | XMS_ITS | Encounter Summary ---
Author Organization [facility] Address [address] [place] [address] Care Team Providers Care Wallcovering Texturer Name Role Phone Beni Nguyen MD Primary Care Provider [phone] Beni Nguyen MD Unavailable [phone] Esther Connolly RN Unavailable [phone] Anastasia Rayo LPN Unavailable Encounter Details Date Type Department Care Team (Late st Contact Info) Description 07/31/2024 Abstract [facility] 112 [address] [facility] 110 [place] [address] Beni Nguyen MD 112 [facility] 110 [place] [address] Social History Tobacco Use Types Packs/Day Years [...] any clubs o r organizations such as latter day groups, unions, fraternal or athletic groups, or [...] CI PODIATRY 112 [facility] 120 [place] [address] Real Og DPM 3006 [facility] 5 [place] [address] documented as of this encounter Visit Diagnoses Not on filedocumented in this encounter Care Teams Wallcovering Texturer Relationship Specialty Start Date End Date Beni Nguyen MD 112 [facility] 110 [place] [address] PCP - General Internal Medicine 01/02/23 Beni Nguyen MD 112 [facility] 110 [place] [address] PCP - ACO Reach 01/12/23 Esther Connolly, HEATHER [address] [place], [place] [address] Clinical Advocate Family Medicine 09/27/24 11/08/24 Anastasia Rayo LPN 112 [place] [facility] 110 [place] [address] 11/08/24 documented as of this encounter
--- NOTE | 2025-05-07 13:50 | PM.CN ---
Consult Note: HPI Data of Consult Patient: known to practice within the last 3 years Consult date: 05/07/25 Requesting Physician: Kimberly Wright NP Primary Care Provider: KOMAL SCHAFFER Consult Narrative Reason for consult: low back pain Narrative: Anukr Reilly a pleasant 79 year old male presents for evaluation of chronic low back and BLE pain secondary to lumbar stenosis with NC, lumbar spondylosis, lumbar DDD, and sacroiliitis. pt has failed to benefit from > 6 weeks of provider guided HEP/PT, heat, ice, tylenol, and is on eliquis so he cannot take NSAIDs. PCP took over percocet as we converted pt to NNCP. pain today 6/10 increasing to 10/10 with standing, walking, activity. utilizing gabapentin, lidocaine patches with mild relief at this time, denies side effects. pt was evaluated by Dr Jacques who deemed pt nonsurgical due to extensive risks. recently underwent right L3-4 L4-5 TFESI with moderate relief for 5 days, no ongoing relief. previously failed right SIJ injections. pain today 6/10 in low back and right thigh. denies fall/injury since last visit, utilizes walker. pt would like to repeat right knee injection for pain/oa, prior injection provided >50% improvement greater than 3 months. cc:: CC: Kimberly Wright NP Review of Systems ROS Musculoskeletal Reports: back pain and joint pain [facility] Medical History Myasthenia gravis ?G70.00 - Myasthenia gravis without (acute) exacerbation (ICD-10) CKD (chronic kidney disease) stage 3, GFR 30-59 ml/min ?N18.30 - Chronic kidney disease, stage 3 unspecified (ICD-10) History of pulmonary embolism ?Z86.711 - Personal history of pulmonary embolism (ICD-10) Hypertension ?I10 - Essential (primary) hypertension (ICD-10) Bladder cancer ?C67.9 - Malignant neoplasm of bladder, unspecified (ICD-10) Pulmonary embolism ?I26.99 - Other pulmonary embolism without acute cor pulmonale (ICD-10) Surgical History Previous back surgery ?Z98.890 - Other specified postprocedural states (ICD-10) History of appendectomy ?Z90.49 - Acquired absence of other specified parts of digestive tract (ICD-10) Family History Mother Family history of cancer Grandmother Family history of diabetes mellitus Father Family history of myocardial infarction Social History Within the past year, how often did you have a drink containing alcohol: monthly or less Within the past year, how many standard drinks containing alcohol did you have on a typical day: 1 or 2 Within the past year, how often did you have six or more drinks on one occasion: never Total score: 0 Score interpretation: A score less than 4 is consistent with normal alcohol consumption. 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 Known occupational exposures/hazards: No Highest level of school completed/degree received: high school graduate Are you now , , , , never or living with a partner: In a typical week, how many times do you talk on the telephone with family, friends, or neighbors: once per week How often do you get together with friends or relatives: once per week How often do you attend christian or baptism services: never Do you belong to any clubs or organizations such as christian groups unions, fraternal or athletic groups, or school groups: no Total score: 1 Score interpretation: A score of less than or equal to 1 indicates the most socially isolated. Little interest or pleasure in doing things: not at all Feeling down, depressed, or hopeless: not at all Feel stressed/tense/nervous/anxious/difficulty sleeping: not at all Due to disability, difficulty making decisions: No Do you think of yourself as: straight/heterosexual Gender Identity: male Meds Home Medications and Allergies Home Medications ?Medication ?Instructions ?Recorded ?Confirmed ?Type apixaban 5 mg tablet (Eliquis) 5 mg PO Q12H 05/09/23 04/07/25 History furosemide 20 mg tablet 40 mg PO DAILY 05/09/23 04/07/25 History loratadine 10 mg tablet (Claritin) 10 mg PO DAILY 05/09/23 04/07/25 History multivitamin 1 tab PO DAILY 05/09/23 04/07/25 History nebivolol 10 mg tablet 10 mg PO DAILY 05/09/23 04/07/25 History omega-3 fatty acids 1,200 mg PO BID 05/09/23 04/07/25 History potassium chloride 10 mEq 20 meq PO DAILY 05/09/23 04/07/25 History tablet,extended release(part/cryst) prednisone 10 mg tablet 15 mg PO DAILY 05/09/23 04/07/25 History pyridostigmine bromide 60 mg tablet 60 mg PO Q6H 05/09/23 04/07/25 History simvastatin 40 mg tablet 40 mg PO DAILY 05/09/23 04/07/25 History naloxone 4 mg/actuation nasal 1 spray intranasal Q2M PRN opioid 12/28/23 04/07/25 Rx spray (Narcan) overdose #2 ea clotrimazole 1 % topical cream 1 applic topical BID 09/09/24 04/07/25 History oxycodone-acetaminophen 5 mg-325 1 tab PO DAILY PRN pain 09/09/24 04/07/25 History mg tablet (Percocet) spironolactone 25 mg tablet 25 mg PO DAILY 09/09/24 04/07/25 History baclofen 10 mg tablet mg 01/27/25 History hydralazine 50 mg tablet mg 01/27/25 History lisinopril 20 mg tablet mg 01/27/25 History gabapentin 600 mg tablet 600 mg PO BID #180 tabs 03/26/25 04/07/25 Rx Allergies Allergy/AdvReac Type Severity Reaction Status Date / Time No Known Drug Allergies Allergy Verified 04/07/25 10:31 Exam Constitutional Documenting provider has reviewed patient's vital signs: yes Common normals: no apparent distress, oriented x3, healthy appearing, alert and well nourished General appearance: cooperative Nutritional appearance: obese HENMT Common normals: normocephalic, hearing grossly normal bilaterally and moist oral mucous membranes Head and scalp: normocephalic Eye Common normals: PERRL Pupil: PERRL Neck & C-Spine Common normals: full ROM General: normal visual inspection Chest Common normals: inspection of chest normal Respiratory Common normals: normal respiratory effort, no retractions and no use of accessory muscles Back & Pelvis Lumbar spine/lower back: ROM limited, pain with ROM, lumbar spinal tenderness Lumbar spinal tenderness location: L4 and L5, paraspinal muscle tenderness and straight leg raise negative bilaterally Other: positive facet loading bilaterally Neuro Common normals: oriented x3 Sensorium/orientation: alert Gait (neuro): antalgic and assistive device used (walker) Psych Common normals: mental status grossly normal, thought process normal, cooperative, affect normal, speech normal and activity/motor behavior normal Speech: normal speech Thought process: normal thought process Results Additional Findings Additional findings: If on a controlled substance or opioids, I have checked an [place]AR[place] report on this patient and there are no aberrancies noted in the prescribing history.??If on a controlled substance or opioid a drug screen was completed and reviewed within the last year, and if there has not been a drug screen completed we ordered one today to monitor higher risk, state monitored pain medication use. As part of providing excellent, safe, comprehensive care, the following was completed at our patient's visit: 1. A medication reconciliation and review to ensure accurate knowledge of current/active medications, including asking our patients to inform us about any [id number] medications or herbal remedies/nutritional supplements/alternative remedies. 2. A review to specifically ensure our patients have had annual screening for screening for depression, screening for tobacco use, and screening for unhealthy alcohol use. For concerning screenings had a discussion with the patient, provided patient education, and recommended follow-up with primary care provider when appropriate. If patient noted with a risk of falling, they received education on strength, gait, and balance training to prevent future risk of falling. Portions of this note may have been carried over from the previous visit and updated as appropriate. Please note this office utilizes paper charting in addition to the electronic medical record. A list of current medications, vitals, and PMH is available there as the clinical staff outside of myself do not have access to [facility] charting during the clinic day operations. As part of providing quality comprehensive care the current medications, vitals, and PMH were reviewed in the paper chart. Assessment and Plan Assessment and Plan (1) Lumbar spondylosis: Assessment and Plan: The patient has had over 3 months of moderate to severe low back and right knee pain with functional impairment and inadequate response to conservative care including NSAIDS (unless there are contraindication such as concurrent blood thinners), multiple oral or topical pain medications, and home exercise program/physical therapy.? Patient has completed >6 weeks of guided home exercise program and/or formal physical therapy program without relief of their symptoms.? The Oswestry Disability Index was completed, and the patient scored a 48%.? (2) Osteoarthritis of right knee: Assessment and Plan: nonsurgical due to age, weight, comorbidities. failed heat, ice, tylenol, cannot take NSAIDs on eliquis. would like to repeat prior injection as he noted >50% improvement in pain and functional ability greater than 3 months (3) Chronic pain of right knee: Plan bilateral L4-5 L5-S1 mbb x2 in consideration of RFA under fluoroscopy for facet mediated pain repeat right knee injection for chronic pain/oa with Dr Wyman continue gabapentin 600mg BID discussed spinal cord stimulator trial/implant, pt would be high risk but continues to endorse significant multidermatomal pain and low back pain unresponsive to numerous medications and interventional therapies. non surgical as recently evaluated by Dr Jacques f/u after injection
--- OUTSIDE RECORDS SUMMARY | 2025-05-07 13:50 | XMS_ITS | Encounter Summary ---
Author Organization [facility] Address [address] [place] [address] Care Team Providers Care Eye Clinic Manager Name Role Phone Beni Nguyen MD Primary Care Provider [phone] Beni Nguyen MD Unavailable [phone] Esther Connolly RN Unavailable Anastasia Rayo LPN Unavailable Encounter Details Date Type Department Care Team (Late st Contact Info) Description 10/26/2023 Abstract [facility] [address] [facility] 110 [place] [address] Beni Nguyen MD 112 [facility] 110 [place] [address] Social History Tobacco Use Types Packs/Day Years [...] Score 0 10/05/2023 [facility] - Occupational Stress Questionnaire Answer Date Recorded [...] Visit [facility] [address] [facility] 120 [place] [address] Real Og, DPM 3006 [facility] 5 [place] [address] documented as of this encounter Visit Diagnoses Not on filedocumented in this encounter Care Teams Eye Clinic Manager Relationship Specialty Start Date End Date Bein Nguyen MD [address] [facility] 110 [place] [address] PCP - General Internal Medicine 01/02/23 Beni Nguyen MD [address] [facility] 110 [place] [address] PCP - ACO Reach 01/12/23 Esther Connolly, RN [address] [place] [address] Clinical Advocate Family Medicine 09/27/24 11/08/24 Anastasia Rayo LPN [address] [address] 11/08/24 documented as of this encounter
--- OUTSIDE RECORDS SUMMARY | 2025-05-07 13:50 | XMS_ITS | Encounter Summary ---
Author Organization [facility] Address [address] [place] [address] Care Team Providers Care Merchandising Specialist Name Role Phone Beni Nguyen MD Primary Care Provider [phone] Beni Nguyen MD Unavailable [phone] Esther Connolly RN Unavailable Anastasia Rayo LPN Unavailable Encounter Details Date Type Department Care Team (Late st Contact Info) Description 07/26/2024 Abstract [facility] 112 [address] [facility] 110 [place] [address] Beni Nguyen MD 112 [facility] 110 [place] [address] Social History Tobacco Use Types Packs/Day Years [...] Recorded Patient Health Questionnaire-2 Score 0 10/05/2023 [facility]at ional Health [...] ([facility] st Contact Info) Description 07/03/2025 2:40 PM EST Procedure Visit [facility] 112 [facility] 120 [place] [address] Real Og DPM 3006 [facility] 5 [place] [address] documented as of this encounter Visit Diagnoses Not on filedocumented in this encounter Care Teams Merchandising Specialist Relationship Specialty Start Date End Date Beni Nguyen MD 112 [facility] 110 [place] [address] PCP - General Internal Medicine 01/02/23 Beni Nguyen MD 112 [facility] 110 [place] [address] PCP - ACO Reach 01/12/23 Esther Connolly, HEATHER [address] [place], [place] [address] Clinical Advocate Family Medicine 09/27/24 11/08/24 Anastasia Rayo LPN 112 [facility] 110 [place] [address] 11/08/24 documented as of this encounter
--- OUTSIDE RECORDS SUMMARY | 2025-05-07 13:50 | XMS_ITS | Encounter Summary ---
Author Organization [facility] Address [address] [place] [address] Care Team Providers Care Deburr Technician Name Role Phone Beni Nguyen MD Primary Care Provider [phone] Beni Nguyen MD Unavailable [phone] sEther Connolly RN Unavailable Anastasia Rayo LPN Unavailable Encounter Details Date Type Department Care Team (Late st Contact Info) Description 09/11/2024 Abstract [facility] [place] [facility] [address] [facility] 110 [place] [address] Beni Nguyen MD 112 [facility] 110 [place] [address] Social History Tobacco Use Types Packs/Day Years [...] ([facility] st Contact Info) Description 07/03/2025 2:40 PM EST Procedure Visit [facility] 112 [facility] 120 [place] [address] Real Og DPM 3006 [facility] 5 [place] [address] documented as of this encounter Visit Diagnoses Not on filedocumented in this encounter Care Teams Deburr Technician Relationship Specialty Start Date End Date Beni Nguyen MD 112 [facility] 110 [place] [address] PCP - General Internal Medicine 01/02/23 Beni Nguyen MD 112 [facility] 110 [place] [address] PCP - ACO Reach 01/12/23 Esther Connolly, HEATHER [address] [place], [place] [address] Clinical Advocate Family Medicine 09/27/24 11/08/24 Anastasia Rayo LPN 112 [place] [facility] 110 [place] [address] 11/08/24 documented as of this encounter
--- OUTSIDE RECORDS SUMMARY | 2025-05-07 13:50 | XMS_ITS | Encounter Summary ---
Author Organization [facility] Address [address] [place] [address] Care Team Providers Care Recyclable Products Sorter Name Role Phone Beni Nguyen MD Primary Care Provider [phone] Beni Nguyen MD Unavailable [phone] Esther Connolly RN Unavailable Anastasia Rayo LPN Unavailable Encounter Details Date Type Department Care Team (Late st Contact Info) Description 07/26/2024 Abstract [facility] [place] [facility] 112 [address] [facility] 110 [place] [address] Beni Nguyen MD 112 [facility] 110 [place] [address] Social History Tobacco Use Types Packs/Day Years [...] Recorded Patient Health Questionnaire-2 Score 0 10/05/2023 [facility]at ional Health [...] EST Procedure Visit [facility] PODI[facility] 112 [facility] 120 [place] [address] Real Og DPM 3006 [facility] 5 [place] [address] documented as of this encounter Visit Diagnoses Not on filedocumented in this encounter Care Teams Recyclable Products Sorter Relationship Specialty Start Date End Date Beni Nguyen MD 112 [facility] 110 [place] [address] PCP - General Internal Medicine 01/02/23 Beni Ngyuen MD 112 [facility] 110 [place] [address] PCP - ACO Reach 01/12/23 Esther Connolly, HEATHER [address] [place], [place] [address] Clinical Advocate Family Medicine 09/27/24 11/08/24 Anastasia Rayo LPN 112 [place] [facility] 110 [place] [address] 11/08/24 documented as of this encounter
--- OUTSIDE RECORDS SUMMARY | 2025-05-07 13:50 | XMS_ITS | Encounter Summary ---
Author Organization [facility] Address [address] [place] [address] Care Team Providers Care Court Attendant Name Role Phone Beni Nguyen MD Primary Care Provider [phone] Beni Nguyen MD Unavailable [phone] Esther Connolly RN Unavailable Anastasia Rayo LPN Unavailable Encounter Details Date Type Department Care Team (Late st Contact Info) Description 10/09/2024 Abstract [facility] [place] [facility] 112 [address] [facility] 110 [place] [address] Beni Nguyen MD 112 [facility] 110 [place] [address] Social History Tobacco Use Types Packs/Day Years [...] Upcoming Encounters Date Type Department Care Team ([facility] st Contact Info) Description 07/03/2025 2:40 PM EST Procedure Visit [facility] 112 [facility] 120 [place] [address] Real Og DPM 3006 [facility] 5 [place] [address] documented as of this encounter Visit Diagnoses Not on filedocumented in this encounter Care Teams Court Attendant Relationship Specialty Start Date End Date Beni Nguyen MD 112 [facility] 110 [place] [address] PCP - General Internal Medicine 01/02/23 Beni Nguyen MD 112 [facility] 110 [place] [address] PCP - ACO Reach 01/12/23 Esther Connolly, HEATHER [address] [place], [place] [address]20 Clinical Advocate Family Medicine 09/27/24 11/08/24 Anastasia Rayo LPN [address] [facility] 110 [place] [address] 11/08/24 documented as of this encounter
--- OUTSIDE RECORDS SUMMARY | 2025-05-07 13:50 | XMS_ITS | Encounter Summary ---
Author Organization [facility] Address [address] [place] [address] Care Team Providers Care Engraver Picture Name Role Phone Beni Nguyen MD Primary Care Provider [phone] Beni Nguyen MD Unavailable [phone] Esther Connolly RN Unavailable Anastasia Rayo LPN Unavailable Encounter Details Date Type Department Care Team (Late st Contact Info) Description 07/29/2024 Abstract [facility] 112 [address] [facility] 110 [place] [address] Beni Nguyen MD 112 [facility] 110 [place] [address] Social History Tobacco Use Types Packs/Day Years [...] CI PODIATRY 112 [facility] 120 [place] [address] Real Og DPM 3006 [facility] 5 [place] [address] documented as of this encounter Visit Diagnoses Not on filedocumented in this encounter Care Teams Engraver Picture Relationship Specialty Start Date End Date Beni Nguyen MD 112 [facility] 110 [place] [address] PCP - General Internal Medicine 01/02/23 Beni Nguyen MD 112 [facility] 110 [place] [address] PCP - ACO Reach 01/12/23 Esther Connolly, HEATHER [address] [place], [place] [address] Clinical Advocate Family Medicine 09/27/24 11/08/24 Anastasia Rayo LPN 112 [place] [facility] 110 [place] [address] 11/08/24 documented as of this encounter
--- OUTSIDE RECORDS SUMMARY | 2025-05-07 13:50 | XMS_ITS | Patient Health Record ---
Author Organization [facility] Address [address] [place] [address] Care Team Providers Care Marine Services Technician Name Role Phone Wilton Kramer Unavailable [phone] Reason For Referral No Information Problems Problem Type SNOMED Code ICD Code Onset Dates Problem Status W/U Status Risk Notes Problem [id number] Primary osteoarthritis of left knee (M17.12) Active confirmed Encounters Encounter Location Date Provider Diagnosis [facility] [facility] [address] [place] [phone] 05/14/2024 Wilton Kramer Primary osteoarthrit is of left knee M17.12 and Pain, joint, knee, left M25.562 [facility] [address] [place] [address] DR HAYNES [address] [place] [address] 05/20/2024 Wilton Kramer Assessments Encounter Date Diagnosis (ICD Code) Assessment Notes Treatment Notes Treatment Clinical Notes Section Notes 05/14/2024 Pain, joint, knee, left (ICD-10 - M25.562) 05/14/2024 Primary osteoarthritis of left knee (ICD-10 - M17.12) Plan Of Treatment Pending Test Test Name Order Date MRI : Knee W/O Contrast Left - 13489 Home PT 05/14/2024 [facility]- PT/OT EVAL AND TREAT 3X/WEEK FOR 6 WEEKS 03/13/2024 Insurance Providers Payer Name Payer Address Payer Phone Subscriber Number Group Number Insured Name Patient Relationship to Insured Coverage Start Date Coverage End [place] [address] [place] [address] [id number] TAURUS GARCIA Self - patient is the insured AAR SUPPLEMENT [address] [place] [address] [id number] TAURUS GARCIA Self - patient is the insured
--- OUTSIDE RECORDS SUMMARY | 2025-05-07 13:50 | XMS_ITS | Encounter Summary ---
Author Organization [facility] Address [address] [place] [address] Care Team Providers Care Bander And Cellophaner Machine Helper Name Role Phone Beni Nguyen MD Primary Care Provider [phone] Beni Nguyen MD Unavailable [phone] Esther Connolly RN Unavailable [phone] Anastasia Rayo LPN Unavailable Encounter Details Date Type Department Care Team (Late st Contact Info) Description 08/22/2024 Abstract [facility] [place] [facility] 112 [address] [facility] 110 [place] [address] Beni Nguyen MD 112 [facility] 110 [place] [address] Social History Tobacco Use Types Packs/Day Years [...] Recorded Patient Health Questionnaire-2 Score 0 10/05/2023 [facility] Occupat ional Health [...] CI PODIATRY 112 [facility] 120 [place] [address] Real Og DPM 3006 [facility] 5 [place] [address] documented as of this encounter Visit Diagnoses Not on filedocumented in this encounter Care Teams Bander And Cellophaner Machine Helper Relationship Specialty Start Date End Date Beni gNuyen MD 112 [facility] 110 [place] [address] PCP - General Internal Medicine 01/02/23 Beni Nguyen MD 112 [facility] 110 [place] [address] PCP - ACO Reach 01/12/23 Esther Connolly, HEATHER [address] [place], [place] [address] Clinical Advocate Family Medicine 09/27/24 11/08/24 Anastasia Rayo LPN [address] [facility] 110 [place] [address] 11/08/24 documented as of this encounter
--- OUTSIDE RECORDS SUMMARY | 2025-05-07 13:50 | XMS_ITS | Encounter Summary ---
Author Organization [facility] Address [address] [place] [address] Care Team Providers Care Distribution Center Associate Name Role Phone Beni Nguyen MD Primary Care Provider [phone] Beni Nguyen MD Unavailable [phone] Anastasia Rayo LPN Unavailable Encounter Details Date Type Department Care Team (Late st Contact Info) Description 01/23/2025 Abstract [facility] [address] [facility] 110 [place] [address] Beni Nguyen MD 112 [place] [facility] 110 [place] [address] Social History Tobacco Use Types Packs/Day Years [...] often do you attend chur ch or sabianism services? Never 03/17/2023 Do you belong to [...] Recorded Patient Health Questionnaire-2 Score 0 12/05/2024 [facility] - [...] [facility] Contact Info) Description 07/03/2025 2:40 PM EST Procedure Visit [facility] PODI[facility] 112 [address] [facility] 120 [place] [address] Real Og DPM 3006 [facility] 5 [place] [address] documented as of this encounter Visit Diagnoses Not on filedocumented in this encounter Care Teams Distribution Center Associate Relationship Specialty Start Date End Date Beni Nguyen MD [address] [facility] 110 [place] [address] PCP - General Internal Medicine 01/02/23 Beni Nguyen MD [address] [facility] 110 [place] [address] PCP - ACO Reach 01/12/23 Anastasia Rayo LPN 112 [facility] 110 [place] [address] 11/08/24 documented as of this encounter
--- OUTSIDE RECORDS SUMMARY | 2025-05-07 13:50 | XMS_ITS | Encounter Summary ---
Author Organization [facility] Address [address] [place] [address] Care Team Providers Care Cell Tender Name Role Phone Beni Nguyen MD Primary Care Provider Beni Nguyen MD Unavailable [phone] Esther Connolly RN Unavailable [phone] Anastasia Rayo LPN Unavailable Encounter Details Date Type Department Care Team (Late st Contact Info) Description 09/11/2024 Abstract [facility] [place] [facility] 112 [address] [facility] 110 [place] [address] Beni Nguyen MD 112 [facility] 110 [place] [address] Social History Tobacco Use Types Packs/Day Years [...] CI PODIATRY 112 [facility] 120 [place] [address] Real Og DPM 3006 [facility] 5 [place] [address] documented as of this encounter Visit Diagnoses Not on filedocumented in this encounter Care Teams Cell Tender Relationship Specialty Start Date End Date Beni Nguyen MD 112 [facility] 110 [place] [address] PCP - General Internal Medicine 01/02/23 Beni Nguyen MD 112 [facility] 110 [place] [address] PCP - ACO Reach 01/12/23 Esther Connolly, HEATHER [address] [place], [place] [address] Clinical Advocate Family Medicine 09/27/24 11/08/24 Anastasia Rayo LPN 112 [place] [facility] 110 [place] [address] 11/08/24 documented as of this encounter
--- OUTSIDE RECORDS SUMMARY | 2025-05-07 13:50 | XMS_ITS | Encounter Summary ---
Author Organization [facility] Address [address] [place] [address] Care Team Providers Care Proof Inspector Name Role Phone Beni Nguyen MD Primary Care Provider [phone] Beni Nguyen MD Unavailable [phone] Esther Connolly RN Unavailable [phone] Anastasia Rayo LPN Unavailable Encounter Details Date Type Department Care Team (Late st Contact Info) Description 08/07/2024 Abstract [facility] [place] [facility] [address] [facility] 110 [place] [address] Beni Nguyen MD 112 [facility] 110 [place] [address] Social History Tobacco Use Types Packs/Day Years [...] Upcoming Encounters Date Type Department Care Team ([facility] st Contact Info) Description 07/03/2025 2:40 PM EST Procedure Visit [facility] 112 [facility] 120 [place] [address] Real Og DPM 3006 [facility] 5 [place] [address] documented as of this encounter Visit Diagnoses Not on filedocumented in this encounter Care Teams Proof Inspector Relationship Specialty Start Date End Date Beni Nguyen MD 112 [facility] 110 [place] [address] PCP - General Internal Medicine 01/02/23 Beni Nguyen MD 112 [facility] 110 [place] [address] PCP - ACO Reach 01/12/23 Esther Connolly, HEATHER [address] [place], [place] [address] Clinical Advocate Family Medicine 09/27/24 11/08/24 Anastasia Rayo LPN 112 [place] [facility] 110 [place] [address] 11/08/24 documented as of this encounter
--- OUTSIDE RECORDS SUMMARY | 2025-05-07 13:50 | XMS_ITS | Encounter Summary ---
Author Organization [facility] Address [address] [place] [address] Care Team Providers Care Tube Blower Name Role Phone Beni Nguyen MD Primary Care Provider [phone] Beni Nguyen MD Unavailable [phone] Esther Connolly RN Unavailable [phone] Anastasia Rayo LPN Unavailable Encounter Details Date Type Department Care Team (Late st Contact Info) Description 09/17/[address] [facility] [address] [facility] 110 [place] [address] Beni Nguyen MD 112 [facility] 110 [place] [address] Social History Tobacco Use Types Packs/Day Years [...] [facility] st Contact Info) Description 07/03/2025 2:40 PM EST Procedure Visit [facility] 112 [facility] 120 [place] [address] Real Og DPM 3006 [facility] 5 [place] [address] documented as of this encounter Visit Diagnoses Not on filedocumented in this encounter Care Teams Tube Blower Relationship Specialty Start Date End Date Beni Nguyen MD 112 [facility] 110 [place] [address] PCP - General Internal Medicine 01/02/23 Beni Nguyen MD 112 [facility] 110 [place] [address] PCP - ACO Reach 01/12/23 Esther Connolly, HEATHER [address] [place], [place] [address] Clinical Advocate Family Medicine 09/27/24 11/08/24 Anastasia Rayo LPN 112 [facility] 110 [place] [address] 11/08/24 documented as of this encounter
--- OUTSIDE RECORDS SUMMARY | 2025-05-07 13:50 | XMS_ITS | Encounter Summary ---
Author Organization [facility] Address [address] [place] [address] Care Team Providers Care Commercial Analyst Name Role Phone Beni Nguyen MD Primary Care Provider [phone] Beni Nguyen MD Unavailable [phone] Esther Connolly RN Unavailable Anastasia Rayo LPN Unavailable Encounter Details Date Type Department Care Team (Late st Contact Info) Description 08/19/2024 Abstract [facility] [place] [facility] 112 [address] [facility] 110 [place] [address] Beni Nguyen MD 112 [facility] 110 [place] [address] Social History Tobacco Use Types Packs/Day Years [...] CI PODIATRY 112 [facility] 120 [place] [address] Real Og DPM 3006 [facility] 5 [place] [address] documented as of this encounter Visit Diagnoses Not on filedocumented in this encounter Care Teams Commercial Analyst Relationship Specialty Start Date End Date Beni Nguyen MD 112 [facility] 110 [place] [address] PCP - General Internal Medicine 01/02/23 Beni Nguyen MD 112 [facility] 110 [place] [address] PCP - ACO Reach 01/12/23 Esther Connolly, HEATHER [address] [place], [place] [address] Clinical Advocate Family Medicine 09/27/24 11/08/24 Anastasia Rayo LPN 112 [facility] 110 [place] [address] 11/08/24 documented as of this encounter
--- OUTSIDE RECORDS SUMMARY | 2025-05-07 13:50 | XMS_ITS | Encounter Summary ---
Author Organization [facility] Address [address] [place] [address] Care Team Providers Care Product Development Chemist Name Role Phone Beni Nguyen MD Primary Care Provider [phone] Beni Nguyen MD Unavailable [phone] Esther Connolly RN Unavailable Anastasia Rayo LPN Unavailable Encounter Details Date Type Department Care Team (Late st Contact Info) Description 10/11/2023 Abstract [facility] [place] [facility] [address] [facility] 110 [place] [address] Beni Nguyen MD 112 [facility] 110 [place] [address] Social History Tobacco Use Types Packs/Day Years [...] Recorded Patient Health Questionnaire-2 Score 0 10/05/2023 [facility]ational Stress Questionnaire Answer Date [...] [address] [facility] 120 [place] [address] Real Og, DPM 3006 [facility] 5 [place] [address] documented as of this encounter Visit Diagnoses Not on filedocumented in this encounter Care Teams Product Development Chemist Relationship Specialty Start Date End Date Beni Nguyen MD [address] [place] 110 [place] [address] PCP - General Internal Medicine 01/02/23 Beni Nguyen MD [address] [facility] 110 [place] [address] PCP - ACO Reach 01/12/23 Esther Connolly, RN [address] [place] [address] Clinical Advocate Family Medicine 09/27/24 11/08/24 Anastasia Rayo LPN [address] [address] 11/08/24 documented as of this encounter
--- OUTSIDE RECORDS SUMMARY | 2025-05-07 13:50 | XMS_ITS | Encounter Summary ---
Author Organization [facility] Address [address] [place] [address] Care Team Providers Care Edi Specialist Name Role Phone Beni Nguyen MD Primary Care Provider [phone] Beni Nguyen MD Unavailable [phone] Esther Connolly RN Unavailable [phone] Anastasia Rayo LPN Unavailable Encounter Details Date Type Department Care Team (Late st Contact Info) Description 09/19/[address] [facility] 112 [address] [facility] 110 [place] [address] Beni Nguyen MD 112 [facility] 110 [place] [address] Social History Tobacco Use Types Packs/Day Years [...] 0 10/05/2023 [facility] of Occupat ional [...] Upcoming Encounters Date Type Department Care Team ([facility] st Contact Info) Description 07/03/2025 2:40 PM EST Procedure Visit [facility] 112 [facility] 120 [place] [address] Real Og DPM 3006 [facility] 5 [place] [address] documented as of this encounter Visit Diagnoses Not on filedocumented in this encounter Care Teams Edi Specialist Relationship Specialty Start Date End Date Beni Nguyen MD 112 [facility] 110 [place] [address] PCP - General Internal Medicine 01/02/23 Beni Nguyen MD 112 [facility] 110 [place] [address] PCP - ACO Reach 01/12/23 Esther Connolly, HEATHER [address] [place], [place] [address] Clinical Advocate Family Medicine 09/27/24 11/08/24 Anastasia Rayo LPN 112 [facility] 110 [place] [address] 11/08/24 documented as of this encounter
--- OUTSIDE RECORDS SUMMARY | 2025-05-07 13:50 | XMS_ITS | Encounter Summary ---
Author Organization [facility] Address [address] [place] [address] Care Team Providers Care Supervisory Training Specialist Name Role Phone Beni Nguyen MD Primary Care Provider [phone] Beni Nguyen MD Unavailable [phone] Esther Connolly RN Unavailable [phone] Anastasia Rayo LPN Unavailable Encounter Details Date Type Department Care Team (Late st Contact Info) Description 03/14/2023 Orders Only [facility] [address] [facility] 110 [place] [address] Leela Cherry, PERFORMANCE TEST CONSULTANT 112 [place] [facility] 110 [place], [place] [address] Social History Tobacco Use Types Packs/Day Years [...] Assessment Author 1 03/17/2023 10:45 AM EDT Salma Kelley LPN * Question Answer Date of Assessment Author Q1: How often do you have a drink containing alcohol? Monthly or less 03/17/2023 10:45 AM EDT Salma Kelley L PN Q2: How many drinks containing alcohol do you have on a typical day when you are drinking? 1 or 2 03/17/2023 10:45 AM EDT Salma Kelley L PN Q3: How often do you have six or more drinks on one occasion? Never 03/17/2023 10:45 AM EDT Salma Kelley L PN documented as of this encounter Plan of Treatment Upcoming Encounters Date Type Department Care Team (Late st Contact Info) Description 07/03/2025 2:40 PM EST Procedure Visit [facility] 112 [facility] 120 [place] [address] Real Og DPM 8561 [facility] 5 [place] [address] documented as of this encounter Procedures Procedure Name Priority Date/Time Associated Diagnosis Comments HOME SLEEP TEST Routine 03/10/2023 9:21 AM EDT documented in this encounter Results * Home sleep test (03/10/2023 9:21 AM EDT) us Leela Cherry PERFORMANCE TEST CONSULTANT SLEEP CENTER ORDERABLES Julianna l Result documented in this encounter Visit Diagnoses Not on filedocumented in this encounter Care Teams Supervisory Training Specialist Relationship Specialty Start Date End Date Beni Nguyen MD 112 [place] [facility] 110 [place] [address] PCP - General Internal Medicine 01/02/23 Beni Nguyen MD 112 [place] [facility] 110 [place] [address] PCP - ACO Reach 01/12/23 Esther Connolly, HEATHER [address] [place] [address] Clinical Advocate Family Medicine 09/27/24 11/08/24 Anastasia Rayo LPN [address] [place] [address] [address] 11/08/24 documented as of this encounter
--- OUTSIDE RECORDS SUMMARY | 2025-05-07 13:50 | XMS_ITS | Encounter Summary ---
Author Organization [facility] Address [address] [place] [address] Care Team Providers Care Sweater Operator Name Role Phone Beni Nguyen MD Primary Care Provider [phone] Beni Nguyen MD Unavailable [phone] Esther Connolly RN Unavailable Anastasia Rayo LPN Unavailable Encounter Details Date Type Department Care Team (Late st Contact Info) Description 07/30/2024 Abstract [facility] [place] [facility] 112 [address] [facility] 110 [place] [address] Beni Nguyen MD 112 [facility] 110 [place] [address] Social History Tobacco Use Types Packs/Day Years [...] [facility] 112 [facility] 120 [place] [address] Real Og DPM 3006 [facility] 5 [place] [address] documented as of this encounter Visit Diagnoses Not on filedocumented in this encounter Care Teams Sweater Operator Relationship Specialty Start Date End Date Beni Nguyen MD 112 [facility] 110 [place] [address] PCP - General Internal Medicine 01/02/23 Beni Nguyne MD 112 [facility] 110 [place] [address] PCP - ACO Reach 01/12/23 Esther Connolly, HEATHER [address] [place], [place] [address] Clinical Advocate Family Medicine 09/27/24 11/08/24 Anastasia Rayo LPN 112 [facility] 110 [place] [address] 11/08/24 documented as of this encounter
--- OUTSIDE RECORDS SUMMARY | 2025-05-07 13:50 | XMS_ITS | Encounter Summary ---
Author Organization [facility] Address [address] [place] [address] Care Team Providers Care Environmental Construction Engineer Name Role Phone Beni Nguyen MD Primary Care Provider [phone] Beni Nguyen MD Unavailable [phone] Anastasia Rayo LPN Unavailable Encounter Details Date Type Department Care Team (Late st Contact Info) Description 02/05/2025 Abstract [facility] [address] [facility] 110 [place] [address] Beni Nguyen MD 112 [facility] 110 [place] [address] Social History Tobacco Use Types Packs/Day Years [...] Patient Health Questionnaire-2 Score 0 12/05/2024 [facility] [...] [facility] 120 [place] [address] Real Og DPM 3006 [facility] 5 [place] [address] documented as of this encounter Visit Diagnoses Not on filedocumented in this encounter Care Teams Environmental Construction Engineer Relationship Specialty Start Date End Date Beni Nguyen MD [address] [facility] 110 [place] [address] PCP - General Internal Medicine 01/02/23 Beni Nguyen MD [address] [facility] 110 [place] [address] PCP - ACO Reach 01/12/23 Anastasia Rayo LPN 112 [facility] 110 [place] [address] 11/08/24 documented as of this encounter
--- OUTSIDE RECORDS SUMMARY | 2025-05-07 13:50 | XMS_ITS | Encounter Summary ---
Author Organization [facility] Address [address] [place] [address] Care Team Providers Care Vocational Examiner Name Role Phone Beni Nguyen MD Primary Care Provider [phone] Beni Nguyen MD Unavailable [phone] Esther Connolly RN Unavailable Anastasia Rayo LPN Unavailable Encounter Details Date Type Department Care Team (Late st Contact Info) Description 09/30/2024 Abstract [facility] [place] [facility] [address] [facility] 110 [place] [address] Beni Nguyen MD 112 [facility] 110 [place] [address] Social History Tobacco Use Types Packs/Day Years [...] Upcoming Encounters Date Type Department Care Team ([facility] st Contact Info) Description 07/03/2025 2:40 PM EST Procedure Visit [facility] 112 [facility] 120 [place] [address] Real Og DPM 3006 [facility] 5 [place] [address] documented as of this encounter Visit Diagnoses Not on filedocumented in this encounter Care Teams Vocational Examiner Relationship Specialty Start Date End Date Beni Nguyen MD 112 [facility] 110 [place] [address] PCP - General Internal Medicine 01/02/23 Beni Nguyen MD 112 [facility] 110 [place] [address] PCP - ACO Reach 01/12/23 Esther Connolly, HEATHER [address] [place], [place] [address] Clinical Advocate Family Medicine 09/27/24 11/08/24 Anastasia Rayo LPN 112 [facility] 110 [place] [address] 11/08/24 documented as of this encounter
--- OUTSIDE RECORDS SUMMARY | 2025-05-07 13:50 | XMS_ITS | Encounter Summary ---
Author Organization [facility] Address [address] [place] [address] Care Team Providers Care Tablet Machine Operator Name Role Phone Beni Nguyen MD Primary Care Provider [phone] Beni Nguyen MD Unavailable [phone] Esther Connolly RN Unavailable [phone] Anastasia Rayo AD TRAFFICKER Unavailable Encounter Details Date Type Department Care Team (Late Contact Info) Description 12/23/2022 Abstract [facility] [place] [facility] 112 [address] [facility] 110 [place] [address] Beni Nguyen MD 112 [facility] 110 [place], [place] [address] Social History Tobacco Use Types Packs/Day Years [...] Department Care Team (Late Contact Info) Description 07/03/2025 2:40 PM EST Procedure Visit [facility] [address] [facility] 120 [place] [address] Real Og, DPMarcial 3006 [facility] 5 [place] [address] documented as of this encounter Visit Diagnoses Not on filedocumented in this encounter Care Teams Tablet Machine Operator Relationship Specialty Start Date End Date Beni Nguyen MD [address] [facility] 110 [place] [address] PCP - General Internal Medicine 01/02/23 Beni Nguyen MD [address] [facility] 110 [place] [address] PCP - ACO Reach 01/12/23 Esther Connolly, HEATHER [address] [place] [address] Clinical Advocate Family Medicine 09/27/24 11/08/24 Anastasia Rayo LPN [address] [facility] 110 [place] [address] 11/08/24 documented as of this encounter
--- OUTSIDE RECORDS SUMMARY | 2025-05-07 13:50 | XMS_ITS | Encounter Summary ---
Author Organization [facility] Address [address] [place] [address] Care Team Providers Care Software Licensing Executive Name Role Phone Beni Nguyen MD Primary Care Provider [phone] Beni Nguyen MD Unavailable [phone] Esther Connolly RN Unavailable Anastasia Rayo LPN Unavailable Encounter Details Date Type Department Care Team (Late st Contact Info) Description 09/16/2024 Abstract [facility] [place] [facility] [address] [facility] 110 [place] [address] Beni Nguyen MD 112 [facility] 110 [place] [address] Social History Tobacco Use Types Packs/Day Years [...] Upcoming Encounters Date Type Department Care Team ([facility] st Contact Info) Description 07/03/2025 2:40 PM EST Procedure Visit [facility] 112 [facility] 120 [place] [address] Real Og DPM 3006 [facility] 5 [place] [address] documented as of this encounter Visit Diagnoses Not on filedocumented in this encounter Care Teams Software Licensing Executive Relationship Specialty Start Date End Date Beni Nguyen MD 112 [facility] 110 [place] [address] PCP - General Internal Medicine 01/02/23 Beni Nguyen MD 112 [facility] 110 [place] [address] PCP - ACO Reach 01/12/23 Esther Connolly, HEATHER [address] [place], [place] [address] Clinical Advocate Family Medicine 09/27/24 11/08/24 Anastasia Rayo LPN 112 [facility] 110 [place] [address] 11/08/24 documented as of this encounter
--- OUTSIDE RECORDS SUMMARY | 2025-05-07 13:50 | XMS_ITS | Encounter Summary ---
Author Organization [facility] Address [address] [place] [address] Care Team Providers Care Health And Safety Technician Name Role Phone Beni Nguyen MD Primary Care Provider [phone] Beni Nguyen MD Unavailable [phone] Esther Connolly RN Unavailable Anastasia Rayo LPN Unavailable Encounter Details Date Type Department Care Team (Late st Contact Info) Description 07/29/2024 Abstract [facility] [place] [facility] 112 [address] [facility] 110 [place] [address] Beni Nguyen MD 112 [facility] 110 [place] [address] Social History Tobacco Use Types Packs/Day Years [...] Upcoming Encounters Date Type Department Care Team ([facility] st Contact Info) Description 07/03/2025 2:40 PM EST Procedure Visit [facility] 112 [facility] 120 [place] [address] Real Og DPM 3006 [facility] 5 [place] [address] documented as of this encounter Visit Diagnoses Not on filedocumented in this encounter Care Teams Health And Safety Technician Relationship Specialty Start Date End Date eBni Nguyen MD 112 [facility] 110 [place] [address] PCP - General Internal Medicine 01/02/23 Beni Nguyen MD 112 [facility] 110 [place] [address] PCP - ACO Reach 01/12/23 Esther Connolly, HEATHER [address] [place], [place] [address] Clinical Advocate Family Medicine 09/27/24 11/08/24 Anastasia Rayo LPN 112 [facility] 110 [place] [address] 11/08/24 documented as of this encounter
--- OUTSIDE RECORDS SUMMARY | 2025-05-07 13:50 | XMS_ITS | Encounter Summary ---
Author Organization [facility] Address [address] [place] [address] Care Team Providers Care Building Architectural Designer Name Role Phone Beni Nguyen MD Primary Care Provider [phone] Beni Nguyen MD Unavailable [phone] Esther Connolly RN Unavailable [phone] Anastasia Rayo LPN Unavailable Encounter Details Date Type Department Care Team (Late st Contact Info) Description 08/01/2024 Abstract [facility] [place] [facility] 112 [address] [facility] 110 [place] [address] Beni Nguyen MD 112 [facility] 110 [place] [address] Social History Tobacco Use Types Packs/Day Years [...] often do you attend chur ch or orthodox services? Never 03/17/2023 Do you [...] ([facility] st Contact Info) Description 07/03/2025 2:40 PM EST Procedure Visit [facility] 112 [facility] 120 [place] [address] Real Og DPM 3006 [facility] 5 [place] [address] documented as of this encounter Visit Diagnoses Not on filedocumented in this encounter Care Teams Building Architectural Designer Relationship Specialty Start Date End Date Beni Nguyen MD 112 [facility] 110 [place] [address] PCP - General Internal Medicine 01/02/23 Beni Nguyen MD 112 [facility] 110 [place] [address] PCP - ACO Reach 01/12/23 Esther Connolly, HEATHER [address] [place], [place] [address] Clinical Advocate Family Medicine 09/27/24 11/08/24 Anastasia Rayo LPN 112 [place] 110 [place] [address] 11/08/24 documented as of this encounter
--- OUTSIDE RECORDS SUMMARY | 2025-05-07 13:50 | XMS_ITS | Encounter Summary ---
Author Organization [facility] Address [address] [place] [address] Care Team Providers Care Audio Visual Collections Coordinator Name Role Phone Beni Nguyen MD Primary Care Provider [phone] Beni Nguyen MD Unavailable [phone] Esther Connolly RN Unavailable Anastasia Rayo LPN Unavailable Encounter Details Date Type Department Care Team (Late st Contact Info) Description 07/30/2024 Abstract [facility] [place] [facility] 112 [address] [facility] 110 [place] [address] Beni Nguyen MD 112 [facility] 110 [place] [address] Social History Tobacco Use Types Packs/Day Years [...] Patient Health Questionnaire-2 Score 0 10/05/2023 [facility] of Occupat ional [...] PODIATRY 112 [facility] 120 [place] [address] Real Og DPM 3006 [facility] 5 [place] [address] documented as of this encounter Visit Diagnoses Not on filedocumented in this encounter Care Teams Audio Visual Collections Coordinator Relationship Specialty Start Date End Date Beni Nguyen MD 112 [facility] 110 [place] [address] PCP - General Internal Medicine 01/02/23 Beni Nguyen MD 112 [facility] 110 [place] [address] PCP - ACO Reach 01/12/23 Esther Connolly, HEATHER [address] [place], [place] [address] Clinical Advocate Family Medicine 09/27/24 11/08/24 Anastasia Rayo LPN 112 [place] [facility] 110 [place] [address] 11/08/24 documented as of this encounter
--- OUTSIDE RECORDS SUMMARY | 2025-05-07 13:50 | XMS_ITS | Encounter Summary ---
Author Organization [facility] Address [address] [place] [address] Care Team Providers Care Acquisitions Librarian Name Role Phone Beni Nguyen MD Primary Care Provider [phone] Beni Nguyen MD Unavailable [phone] Esther Connolly RN Unavailable [phone] Anastasia Rayo LPN Unavailable Encounter Details Date Type Department Care Team (Late st Contact Info) Description 05/10/2023 Orders Only [facility] [place] [employer] [facility] [employer] [facility] [address] [facility] 110 [place] [address] A, Unknown Practice 1300 [place] [address] Social History Tobacco Use Types [...] EST Procedure Visit [facility] 112 [facility] 120 [place] [address] Real Og DPM 3006 [facility] 5 [place] [address] documented as of this encounter Procedures Procedure [...] on filedocumented in this encounter Care Teams Acquisitions Librarian Relationship Specialty Start Date End Date Beni Nguyen MD [address] [facility] 110 [place] [address] PCP - General Internal Medicine 01/02/23 Beni Nguyen MD [address] [facility] 110 [place] [address] PCP - ACO Reach 01/12/23 Esther Connolly, RN [address] [place] [address] Clinical Advocate Family Medicine 09/27/24 11/08/24 Anastasia Rayo LPN [address] [facility] 110 [place] [address] 11/08/24 documented as of this encounter
--- OUTSIDE RECORDS SUMMARY | 2025-05-07 13:50 | XMS_ITS | Encounter Summary ---
Author Organization [facility] Address [address] [place] [address] Care Team Providers Care Pathology Laboratory Technologist Name Role Phone Beni Nguyen MD Primary Care Provider [phone] Beni Nguyen MD Unavailable [phone] Esther Connolly RN Unavailable Anastasia Rayo LPN Unavailable Encounter Details Date Type Department Care Team (Late st Contact Info) Description 07/26/2024 Abstract [facility] [address] [facility] 110 [place] [address] Beni Nguyen MD 112 [facility] 110 [place] [address] Social History Tobacco Use Types Packs/Day Years [...] EST Procedure Visit [facility] 112 [facility] 120 [place] [address] Real Og DPM [facility] 5 [place] [address] documented as of this encounter Visit Diagnoses Not on filedocumented in this encounter Care Teams Pathology Laboratory Technologist Relationship Specialty Start Date End Date Beni Nguyen MD 112 [facility] 110 [place] [address] PCP - General Internal Medicine 01/02/23 Beni Nguyen MD 112 [facility] 110 [place] [address] PCP - ACO Reach 01/12/23 Esther Connolly, HEATHER [address] [place], [place] [address] Clinical Advocate Family Medicine 09/27/24 11/08/24 Anastasia Rayo LPN 112 [facility] 110 [place] [address] 11/08/24 documented as of this encounter
--- OUTSIDE RECORDS SUMMARY | 2025-05-07 13:50 | XMS_ITS | Encounter Summary ---
Author Organization [facility] Address [address] [place] [address] Care Team Providers Care Home Health Clinical Supervisor Name Role Phone Beni Nguyen MD Primary Care Provider [phone] Beni Nguyen MD Unavailable [phone] Esther Connolly RN Unavailable Anastasia Rayo LPN Unavailable Encounter Details Date Type Department Care Team (Late st Contact Info) Description 08/07/2024 Abstract [facility] [address] [facility] 110 [place] [address] Beni Nguyen MD 112 [facility] 110 [place] [address] Social History Tobacco Use Types Packs/Day Years [...] Upcoming Encounters Date Type Department Care Team ([facility] st Contact Info) Description 07/03/2025 2:40 PM EST Procedure Visit [facility] 112 [facility] 120 [place] [address] Real Og DPM 3006 [facility] 5 [place] [address] documented as of this encounter Visit Diagnoses Not on filedocumented in this encounter Care Teams Home Health Clinical Supervisor Relationship Specialty Start Date End Date Beni Nguyen MD 112 [facility] 110 [place] [address] PCP - General Internal Medicine 01/02/23 Beni Nguyen MD 112 [facility] 110 [place] [address] PCP - ACO Reach 01/12/23 Esther Connolly, HEATHER [address] [place], [place] [address] Clinical Advocate Family Medicine 09/27/24 11/08/24 Anastasia Rayo LPN 112 [facility] 110 [place] [address] 11/08/24 documented as of this encounter
--- OUTSIDE RECORDS SUMMARY | 2025-05-07 13:50 | XMS_ITS | Encounter Summary ---
Author Organization [facility] Address [address] [place] [address] Care Team Providers Care Graduation Coach Name Role Phone Beni Nguyen MD Primary Care Provider [phone] Beni Nguyen MD Unavailable [phone] Esther Connolly RN Unavailable Anastasia Rayo LPN Unavailable Encounter Details Date Type Department Care Team (Late st Contact Info) Description 08/28/2024 Abstract [facility] [address] [facility] 110 [place] [address] Beni Nguyen MD 112 [facility] 110 [place] [address] Social History Tobacco Use Types Packs/Day Years [...] Upcoming Encounters Date Type Department Care Team ([facility] st Contact Info) Description 07/03/2025 2:40 PM EST Procedure Visit [facility] 112 [facility] 120 [place] [address] Real Og DPM 3006 [facility] 5 [place] [address] documented as of this encounter Visit Diagnoses Not on filedocumented in this encounter Care Teams Graduation Coach Relationship Specialty Start Date End Date Beni Nguyen MD 112 [facility] 110 [place] [address] PCP - General Internal Medicine 01/02/23 Beni Nguyen MD 112 [facility] 110 [place] [address] PCP - ACO Reach 01/12/23 Esther Connolly, HEATHER [address] [place], [place] [address] Clinical Advocate Family Medicine 09/27/24 11/08/24 Anastasia Rayo LPN 112 [place] [facility] 110 [place] [address] 11/08/24 documented as of this encounter
--- OUTSIDE RECORDS SUMMARY | 2025-05-07 13:50 | XMS_ITS | Encounter Summary ---
Author Organization [facility] Address [address] [place] [address] Care Team Providers Care Tooling Engineering Tech Name Role Phone Beni Nguyen MD Primary Care Provider [phone] Beni Nguyen MD Unavailable [phone] Esther Connolly RN Unavailable Anastasia Rayo LPN Unavailable Encounter Details Date Type Department Care Team (Late st Contact Info) Description 09/17/2024 Abstract [facility] [address] [facility] 110 [place] [address] Beni Nguyen MD 112 [facility] 110 [place] [address] Social History Tobacco Use Types Packs/Day Years [...] ([facility] st Contact Info) Description 07/03/2025 2:40 PM EST Procedure Visit [facility] [address] [facility] 120 [place] [address] Real Og DPM 3006 [facility] 5 [place] [address] documented as of this encounter Visit Diagnoses Not on filedocumented in this encounter Care Teams Tooling Engineering Tech Relationship Specialty Start Date End Date Beni Nguyen MD 112 [facility] 110 [place] [address] PCP - General Internal Medicine 01/02/23 Beni Nguyen MD 112 [facility] 110 [place] [address] PCP - ACO Reach 01/12/23 Esther Connolly, HEATHER [address] [place], [place] [address] Clinical Advocate Family Medicine 09/27/24 11/08/24 Anastasia Rayo LPN 112 [place] [facility] 110 [place] [address] 11/08/24 documented as of this encounter
--- OUTSIDE RECORDS SUMMARY | 2025-05-07 13:50 | XMS_ITS | Encounter Summary ---
Author Organization [facility] Address [address] [place] [address] Care Team Providers Care Rampman Name Role Phone Beni Nguyen MD Primary Care Provider [phone] Beni Nguyen MD Unavailable [phone] Esther Connolly RN Unavailable [phone] Anastasia Rayo LPN Unavailable Encounter Details Date Type Department Care Team (Late st Contact Info) Description 08/07/2024 Abstract [facility] [address] [facility] 110 [place] [address] Beni Nguyen MD 112 [facility] 110 [place] [address] Social History Tobacco Use Types Packs/Day Years [...] Upcoming Encounters Date Type Department Care Team ([facility] st Contact Info) Description 07/03/2025 2:40 PM EST Procedure Visit [facility] 112 [facility] 120 [place] [address] Real Og DPM 3[address] [facility] 5 [place] [address] documented as of this encounter Visit Diagnoses Not on filedocumented in this encounter Care Teams Rampman Relationship Specialty Start Date End Date Beni Nguyen MD 112 [facility] 110 [place] [address] PCP - General Internal Medicine 01/02/23 Beni Nguyen MD 112 [facility] 110 [place] [address] PCP - ACO Reach 01/12/23 Esther Connolly, HEATHER [address] [place], [place] [address] Clinical Advocate Family Medicine 09/27/24 11/08/24 Anastasia Rayo LPN 112 [facility] 110 [place] [address] 11/08/24 documented as of this encounter
--- OUTSIDE RECORDS SUMMARY | 2025-05-07 13:50 | XMS_ITS | Clinical Summary ---
Author Organization [facility] Address [address] [place], [place] [address] Care Team Providers Care Geological Science Teacher Name Role Phone Patrick ARMENTA MD, Beni Hamlin Primary Care Provider [phone] Allergies No known active allergies Medications pyridostigmine [...] furosemide (LASIX) 20 mg tablet 03/22/2022 Active Rosenberg-3 Fatty Acids, FISH OIL, 360-1,200 mg cap [...] Vaccine (1 - 1-dose 75+ series) 2018 Advance Directive Discussion 08/21/2024 Influenza Vaccine (#1) 2025 , 05/19/2021, 05/06/2020, Additional history exists Diabetes Screening 04/27/2025 04/27/2022, 1 09/07/2020, 07/29/2020, Additional history exists Pneumococcal Vaccine: 50+ Completed 2017, 10/26/2015, 10/19/2004 [place] [id number] [place] [address] Care Teams Geological Science Teacher Relationship Specialty Start Date End Date Beni Nguyen II, MD [address] [place] [address] PCP - General Internal Medicine 12/05/16
--- OUTSIDE RECORDS SUMMARY | 2025-05-07 13:50 | XMS_ITS | Encounter Summary ---
Author Organization [facility] Address [address] [place] [address] Care Team Providers Care Customs Compliance Analyst Name Role Phone Beni Nguyen MD Primary Care Provider [phone] Beni Nguyen MD Unavailable [phone] Esther Connolly RN Unavailable Anastasia Rayo LPN Unavailable Encounter Details Date Type Department Care Team (Late st Contact Info) Description 09/11/2024 Abstract [facility] [place] [facility] [address] [facility] 110 [place] [address] Beni Nguyen MD 112 [facility] 110 [place] [address] Social History Tobacco Use Types Packs/Day Years [...] PODIATRY 112 [facility] 120 [place] [address] Real Og DPM 3006 [facility] 5 [place] [address] documented as of this encounter Visit Diagnoses Not on filedocumented in this encounter Care Teams Customs Compliance Analyst Relationship Specialty Start Date End Date Beni Nguyen MD 112 [facility] 110 [place] [address] PCP - General Internal Medicine 01/02/23 Beni Nguyen MD 112 [facility] 110 [place] [address] PCP - ACO Reach 01/12/23 Esther Connolly, HEATHER [address] [place], [place] [address] Clinical Advocate Family Medicine 09/27/24 11/08/24 Anastasia Rayo LPN 112 [facility] 110 [place] [address] 11/08/24 documented as of this encounter
--- OUTSIDE RECORDS SUMMARY | 2025-05-07 13:50 | XMS_ITS | Encounter Summary ---
Author Organization [facility] Address [address] [place] [address] Care Team Providers Care Nursing Education Consultant Name Role Phone Beni Nguyen MD Primary Care Provider [phone] Beni Nguyen MD Unavailable [phone] Esther Connolly RN Unavailable Anastasia Rayo LPN Unavailable Encounter Details Date Type Department Care Team (Late st Contact Info) Description 03/28/2023 Abstract [facility] [place] [facility] [address] [facility] 110 [place] [address] Beni Nguyen MD 112 [facility] 110 [place] [address] Social History Tobacco Use Types Packs/Day Years [...] Upcoming Encounters Date Type Department Care Team ([facility] st Contact Info) Description 07/03/2025 2:40 PM EST Procedure Visit [facility] 112 [facility] 120 [place] [address] Real Og, DPM 3006 [facility] 5 [place] [address] documented as of this encounter Visit Diagnoses Not on filedocumented in this encounter Care Teams Nursing Education Consultant Relationship Specialty Start Date End Date Beni Nguyen MD 112 [facility] 110 [place] [address] PCP - General Internal Medicine 01/02/23 Beni Nguyen MD [address] [facility] 110 [place] [address] PCP - ACO Reach 01/12/23 Esther Connolly RN [address] [place], [place] [address] Clinical Advocate Family Medicine 09/27/24 11/08/24 Anastasia Rayo LPN [address] [address] 11/08/24 documented as of this encounter
--- OUTSIDE RECORDS SUMMARY | 2025-05-07 13:51 | XMS_ITS | Encounter Summary ---
Author Organization [facility] Address [address] [place] [address] Care Team Providers Care Lockstitch Machine Operator Name Role Phone Beni Nguyen MD Primary Care Provider [phone] Beni Nguyen MD Unavailable [phone] Esther Connolly RN Unavailable Anastasia Rayo LPN Unavailable Encounter Details Date Type Department Care Team (Late st Contact Info) Description 09/24/2024 Abstract [facility] [place] [facility] [address] [facility] 110 [place] [address] Beni Nguyen MD 112 [facility] 110 [place] [address] Social History Tobacco Use Types Packs/Day Years [...] Patient Health Questionnaire-2 Score 0 10/05/2023 [facility] [...] ([facility] st Contact Info) Description 07/03/2025 2:40 PM EST Procedure Visit [facility] 112 [facility] 120 [place] [address] Real Og DPM 3006 [facility] 5 [place] [address] documented as of this encounter Visit Diagnoses Not on filedocumented in this encounter Care Teams Lockstitch Machine Operator Relationship Specialty Start Date End Date Beni Nguyen MD 112 [facility] 110 [place] [address] PCP - General Internal Medicine 01/02/23 Beni Nguyen MD 112 [facility] 110 [place] [address] PCP - ACO Reach 01/12/23 Esther Connolly, HEATHER [address] [place], [place] [address] Clinical Advocate Family Medicine 09/27/24 11/08/24 Anastasia Rayo LPN 112 [place] [facility] 110 [place] [address] 11/08/24 documented as of this encounter
--- OUTSIDE RECORDS SUMMARY | 2025-05-07 13:51 | XMS_ITS | Encounter Summary ---
Author Organization [facility] Address [address] [place] [address] Care Team Providers Care Inspector Balance Bridge Name Role Phone Patrick ARMENTA MD, Beni Hamlin Primary Care Provider [phone] Source Comments In the event this information is protected by the Federal Confidentiality of Alcohol and Drug AbusePatient Records regulations: The Federal rules restrict any use of the information to criminally investigate or prosecute any alcohol or drug abuse patient.[facility] Encounter Details Date Type Department Care Team (Late st Contact Info) Description 2023 Lab Requisition [facility] [address] [place] [address] Ivan Barnhart MD [address] [place] [address] Person encountering health services to consult on [...] EST) Case Report Surgical Pathology Report Case: [id number] Authorizing Provider: Ivan Barnhart MD Collected: 2023 09:46 AM Ordering Location: [facility] Received: 2023 09:46 AM [facility] Pathologist: Olivier Mina MD Specimen: SLIDE(S), 2 SLIDES [id number] 2023 12:15 PM EST [facility] FINAL DIAGNOSIS [facility]; [place], [place] ([id number], 09/14/23) A. Urinary bladder, biopsy: - Benign nephrogenic adenoma. JKM 2023 2023 12:15 PM EST [facility] at 1215 EST Diagnosis Comment Thank you for allowing me to review this bladder lesion from an 78-year-old man. 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 2023 12:15 PM EST [facility] Clinical History CONSULT REQUESTED 2023 12:15 PM EST [facility] Performing Lab Diagnostic interpretation performed at [facility], [address] [place] [address]# [id number] Ornamental Ironworking Supervisor: Jaylan Mcfadden M.D. 2023 12:15 PM EST [facility] Blocks or Slides MICROSCOPE SLIDE / Unknown 2023 9:46 AM EST 2023 9:46 AM EST us Ivan Barnhart MD SURGICAL PATHOLOGY Final Result [facility] [address] [place] [address] [address] [place] [address], documented in this encounter Visit Diagnoses Diagnosis Person encountering health services to consult on behalf of another person Other person consulting on behalf of another person documented in this encounter Care Teams Inspector Balance Bridge Relationship Specialty Start Date End Date Beni Nguyen II, MD [address] [facility] 110 [place] [id number] PCP - General Internal Medicine 12/05/16 documented as of this encounter
== END 2025-05-07 13:45 | disposition home or self-care (01) ==
LOC: PM 13:44
PROVIDERS: PCP Internal Medicine; Visit Provider Nurse Practitioner
DX: M47.816 Spondylosis without myelopathy or radiculopathy, lumbar region (principal); M17.11 Unilateral primary osteoarthritis, right knee; M25.561 Pain in right knee; G89.29 Other chronic pain
CPT/HCPCS: G0463

== ENCOUNTER 2025-05-26 09:53 | Day surgery (SDC) | payer MEDICARE, SELFPAY ==
--- OUTSIDE RECORDS SUMMARY | 2024-04-09 09:00 | XMS_ITS ---
Author Organization [facility] [place] Address [address] [place] [address] Care Team Providers Care Human Resources Office Manager Name Role Phone Patrick BRIDGES, Beni Primary Care Provider UnavailIvan Larson [phone] Encounters Encounter Location Date Provider Diagnosis [facility] [address] [address] 04/09/2024 Ivan Barnhart Plan Of Treatment No Information Progress Notes * Ankur REILLY ADOB: [birth year] (79 yo M)Acc No.[id number]:04/09/2024 UNLOCKED PROGRESS NOTE 0 Patient: Ankur PRESLEY Provider: Yakelin Barnhart MD :1945 A ge:78 Y S ex:Male Date:04/09/2024 Address:[facility] [address], [id number] Pcp:Beni Nguyen MD Subjective: * Chief Complaints: * * Medical History: Objective: * Vitals: Assessment: Plan: * Treatment: * * Electronic signature of Steven Barnhart MD, [id number] on 05/26/2025 at 09:57 AM EDT Sign off status: Pending Visit Status: R /S (Rescheduled) * Provider: Yakelin Barnhart MD Date: 0 04/09/2024 Generated for Printi ng/Faxing/eTransmitting on: 1 09:57 AM EDT
--- OUTSIDE RECORDS SUMMARY | 2024-06-04 04:30 | XMS_ITS ---
Author Organization [facility] in [place] Address [address] [place] [address] Care Team Providers Care Server Software Engineer Name Role Phone Patrick BRIDGES, Beni Primary Care Provider Unavailab Ivan Engle [phone] REASON FOR VISIT Cysto Encounters Encounter Location Date Provider Diagnosis Urology [facility] [address] [address] 06/04/2024 Ivan Barnhart Plan Of Treatment No Information Progress Notes * Ankur REILLY ADOB: [birth year] (79 yo M)Acc No.[id number]:06/04/2024 UNLOCKED PROGRESS NOTE 0 Patient: Ankur PRESLEY Provider: Yakelin Barnhart MD :1945 A ge:78 Y S ex:Male Date:06/04/2024 Address:[address], [id number] Pcp:Beni Nguyen MD Subjective: * Chief Complaints: * 1 . Cysto. * Medical History: Objective: * Vitals: Assessment: Plan: * Treatment: * * Electronic signature of Steven Barnhart MD, [id number] on 05/26/2025 at 09:55 AM EDT Sign off status: Pending Visit Status: R /S (Rescheduled) * Provider: Yakelin Barnhart MD Date: 1 Generated for Printi ng/Faxing/eTransmitting on: 1 09:55 AM EDT
--- OUTSIDE RECORDS SUMMARY | 2024-07-30 07:30 | XMS_ITS ---
Author Organization [facility] in [place] Address [address] [place] [address] Care Team Providers Care Baby Attendant Name Role Phone Patrick BRIDGES, Beni Primary Care Provider Unavailab Ivan Engle [phone] REASON FOR VISIT Cysto Encounters Encounter Location Date Provider Diagnosis [facility] [address] [address] 07/30/2024 Ivan Barnhart Plan Of Treatment No Information Progress Notes * Ankur REILLY ADOB: [birth year] (79 yo M)Acc No.[id number]:07/30/2024 UNLOCKED PROGRESS NOTE 0 Patient: Ankur PRESLEY Provider: Yakelin Barnhart MD :1945 A ge:78 Y S ex:Male Date:07/30/2024 Address:[address], [place] Pcp:Beni Nguyen MD Subjective: * Chief Complaints: * 1 . Cysto. * Medical History: Objective: * Vitals: Assessment: Plan: * Treatment: * * Electronic signature of Steven Barnhart MD, [id number] on 05/26/2025 at 09:55 AM EDT Sign off status: Pending Visit Status: C ANC (Cancelled) * Provider: Yakelin Barnhart MD Date: 1 09/30/2023 Generated for Printi ng/Faxing/eTransmitting on: 1 09:55 AM EDT
--- OUTSIDE RECORDS SUMMARY | 2025-05-22 14:30 | XMS_ITS | Encounter Summary ---
Author Organization [facility] Address [address] [place] [address] Care Team Providers Care Envelope Stamping Machine Operator Name Role Phone Beni Nguyen MD Primary Care Provider [phone] Beni Nguyen MD Unavailable [phone] Anastasia Rayo LPN Unavailable Encounter Details Date Type Department Care Team (Late st Contact Info) Description 05/22/2025 2:30 PM EDT Office Visit [facility] [address] [facility] 110 [place] [address] Leela Cherry, FISHING LURE ASSEMBLER [address] [facility] 110 [place] [address] Pain; Need for vaccination Social History Tobacco Use Types Packs/Day Years [...] Date Recorded Patient Health Questionnaire-2 Score 0 05/22/2025 [facility] [...] Sign Reading Time Taken Comments Blood Pressure 136/64 05/22/2025 2:33 PM EDT Pulse 80 05/22/2025 2:33 PM EDT Temperature - - Respiratory Rate 17 05/22/2025 2:33 PM EDT Oxygen Saturation 94% 05/22/2025 2:33 PM EDT Inhaled Oxygen Concentration - - Weight 135 kg (298 lb) 05/22/2025 2:33 PM EDT Height 172.7 cm (5' 8 ) 05/22/2025 2:33 PM EDT Body Mass Index 45.31 05/22/2025 2:33 PM EDT documented in this encounter Functional Status * Over the past 2 weeks, how often have you been bothered by any of the following problems? Question Answer Date of Assessment Author Little interest or pleasure in doing things Not at all 05/22/2025 2:27 PM EDT LORENA COELLO Feeling down, depressed, or hopeless Not at all 09/2024 2:27 PM EDT LORENA COELLO Patient Health Questionnaire-2 Score 0 09/2024 2:27 PM EDT LORENA COELLO documented as of this encounter Progress Notes * OUMOU LORENA - 05/22/2025 2:30 PM EDT Images from the original note were not included. Subjective Patient ID: Ankur Reilly is a 79 y.o. male who presents for a medication follow up. Ankur presents today for a medication follow up. Will be seeing pain management on Monday. Pain This is a chronic problem. The current episode started more than 1 year ago. The problem occurs intermittently. The problem is unchanged. The context of the pain is unknown. The pain is present in the right knee and lower back. The pain is severe. The symptoms are aggravated by any movement. Past treatments include acetaminophen, prescription NSAID, prescription narcotic, cold pack and heat pack (Pain management, going to have nerve block Monday). The treatment provided mild relief. Over the past 2 weeks, how often have you been bothered by any of the following problems? Little interest or pleasure in doing things: Not at all Feeling down, depressed, or hopeless: Not at all Patient Health Questionnaire-2 Score: 0 Current Outpatient Medications on File Prior to [...] MORNING AND 1 CAPSULE BY MOUTHBEFORE BEDTIME (Patient taking differently: Take 600 mg [...] ONE DAILY MENS 50+ADVANCED PO) nystatin (Mycostatin) 588376 UNIT/GM powder omega-3 (Fish Oil) 1000 MG [...] droop Head injury with fracture of skull ([facility]) 09/17/2024 History of being hospitalized [...] edema 2009 /pucker Muscle cramp Myasthenia gravis ([facility]) 12/27/2017 / dyspnea Myasthenic crisis ([facility]) 05/10/2023 Obesity Obstructive sleep apnea (adult) (pediatric) Pulmonary emboli ([facility]) 11/17/2023 Pulmonary embolism ([facility]) 11/2018 Pure hypercholesterolemia Shortness of breath Superficial thrombophlebitis 12/16/2018 Rt Thigh Syncope 09/17/2024 Tremor Troponin I above reference range 11/17/2023 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 HENT: Negative. Respiratory: Negative. Cardiovascular: Negative. Gastrointestinal: Negative. Genitourinary: Negative. Musculoskeletal: Negative. Skin: Negative. Neurological: Negative. Psychiatric/Behavioral: Negative. Objective Physical Exam Vitals reviewed. Constitutional: Appearance: Normal appearance. HENT: Head: Normocephalic. Nose: Nose normal. Mouth/Throat: Mouth: Mucous membranes are dry. Eyes: Conjunctiva/sclera: Conjunctivae normal. Cardiovascular: Rate and Rhythm: Normal rate. Pulmonary: Effort: Pulmonary effort is normal. Abdominal: [...] Diagnoses and all orders for this visit: Pain - oxyCODONE-acetaminophen (Percocet) 5-325 MG tablet; Take 1 tablet by mouth every 12 (twelve) hours if needed for moderate pain or severe pain Medication choice and dosage is appropriate for patient's current medical conditions. Patient will continue to be required to be seen in our office at least every three months for monitoring. At eachfollow up visit I will reassess the patient's need for the medication. Patient is to have this medication prescribed only through this office. Failure to follow the rules and regulations will result in tapering and discontinuation of medications if applicable. Patient verbalized understanding. OARRS Report was reviewed for this patient. Need for vaccination - Flu vaccine, high dose seasonal, PF (BRR711) (Fluzone High Dose) Tolerated vaccination without difficulty. No follow-ups on file. documented in this encounter Plan of Treatment Upcoming Encounters Date Type Department Care Team ([facility] st Contact Info) Description 07/03/2025 2:40 PM EST Procedure Visit [facility] 112 [facility] 120 [place] [address] Real Og DPM 3006 [facility] 5 [place] [address] documented as of this encounter Visit Diagnoses Diagnosis Pain Generalized pain Need for vaccination Need for prophylactic vaccination and inoculation against unspecified single disease documented in this encounter Care Teams Envelope Stamping Machine Operator Relationship Specialty Start Date End Date Beni Nguyen MD 112 [facility] 110 [place] [address] PCP - General Internal Medicine 01/02/23 Beni Nguyen MD 112 [facility] 110 [place] [address] PCP - ACO Reach 01/12/23 Anastasia Rayo LPN 112 [facility] 110 [place] [address] 11/08/24 documented as of this encounter
--- OUTSIDE RECORDS SUMMARY | 2025-05-26 09:55 | XMS_ITS | Encounter Summary ---
Author Organization [facility] Address [address] [place] [address] Care Team Providers Care Spinner Iron Name Role Phone Beni Nguyen MD Primary Care Provider [phone] Beni Nguyen MD Unavailable [phone] Anastasia Rayo LPN Unavailable Encounter Details Date Type Department Care Team (Late st Contact Info) Description 12/31/2024 [facility] [place] [facility] [address] [facility] 110 [place] [address] Beni Nguyen MD [address] [place] [facility] 110 [place] [address] Social History Tobacco Use Types Packs/Day Years [...] 0 12/05/2024 [facility] [...] Upcoming Encounters Date Type Department Care Team ([facility] Contact Info) Description 07/03/2025 2:40 PM EST Procedure Visit [facility] [address] [facility] 120 [place] [address] Real Og DPM 3006 [facility] 5 [place] [address] documented as of this encounter Visit Diagnoses Not on filedocumented in this encounter Care Teams Spinner Iron Relationship Specialty Start Date End Date Beni Nguyen MD [address] [facility] [address] [place] [address] PCP - General Internal Medicine 01/02/23 Beni Nguyen MD [address] [facility] 110 [place] [address] PCP - ACO Reach 01/12/23 Anastasia Rayo LPN 112 [facility] 110 [place] [address] 11/08/24 documented as of this encounter
--- OUTSIDE RECORDS SUMMARY | 2025-05-26 09:55 | XMS_ITS | Encounter Summary ---
Author Organization [facility] Address [address] [place] [address] Phone Care Team Providers Care Manager Practice Name Role Phone Beni Nguyen MD Primary Care Provider [phone] Encounter Details Date Type Department Care Team (Late st Contact Info) Description 08/18/2021 Orders Only [facility] [address] [place] [address] Conversion, Onbase Social History Tobacco Use Types [...] 2:10 PM EST Office Visit [facility] 703 [facility] [address] [place] [address] Juan C Hoover, DO [address] [place] [address] Scheduled Orders Name Type Priority Associated Diagnoses Orde r Schedule OUTSIDE LAB SCAN Lab Ordered: 08/18/2021 documented as of this encounter Visit Diagnoses Not on filedocumented in this encounter Care Teams Manager Practice Relationship Specialty Start Date End Date Beni Nguyen MD [address] [place] [address] PCP - General 05/18/23 documented as of this encounter
--- OUTSIDE RECORDS SUMMARY | 2025-05-26 09:55 | XMS_ITS | Encounter Summary ---
Author Organization [facility] Address [address] [place] [address] Care Team Providers Care Soakers Supervisor Name Role Phone Beni Nguyen MD Primary Care Provider [phone] Beni Nguyen MD Unavailable [phone] Anastasia Rayo LPN Unavailable Encounter Details Date Type Department Care Team (Late st Contact Info) Description 12/18/2024 Abstract [facility] [place] [facility] [address] [facility] 110 [place] [address] Bnei Nguyen MD 112 [facility] 110 [place] [address] Social History Tobacco Use Types Packs/Day Years [...] Team ([facility] Contact Info) Description 07/03/2025 2:40 PM EST Procedure Visit [facility] [address] [facility] 120 [place] [address] Real Og DPM 3006 [facility] 5 [place] [address] documented as of this encounter Visit Diagnoses Not on filedocumented in this encounter Care Teams Soakers Supervisor Relationship Specialty Start Date End Date Beni gNuyen MD [address] [facility] [address] [place] [address] PCP - General Internal Medicine 01/02/23 Beni Nguyen MD [address] [facility] 110 [place] [address] PCP - ACO Reach 01/12/23 Anastasia Rayo LPN 112 [facility] 110 [place] [address] 11/08/24 documented as of this encounter
--- OUTSIDE RECORDS SUMMARY | 2025-05-26 09:55 | XMS_ITS | Encounter Summary ---
Author Organization [facility] Address [address] [place] [address] Care Team Providers Care Plastic Battery Assembler Name Role Phone Beni Nguyen MD Primary Care Provider [phone] Beni Nguyen MD Unavailable [phone] Anastasia Rayo LPN Unavailable Encounter Details Date Type Department Care Team (Late st Contact Info) Description 12/31/2024 [facility] [place] [facility] [address] [facility] 110 [place] [address] Beni Nguyen MD [address] [place] [facility] 110 [place] [address] Social History Tobacco Use Types Packs/Day Years [...] Recorded Patient Health Questionnaire-2 Score 0 12/05/2024 [facility] [...] Upcoming Encounters Date Type Department Care Team ([facility] Contact Info) Description 07/03/2025 2:40 PM EST Procedure Visit [facility] [address] [facility] 120 [place] [address] Real Og DPM 3006 [facility] 5 [place] [address] documented as of this encounter Visit Diagnoses Not on filedocumented in this encounter Care Teams Plastic Battery Assembler Relationship Specialty Start Date End Date Beni Nguyen MD [address] [facility] [address] [place] [address] PCP - General Internal Medicine 01/02/23 Beni Nguyen MD [address] [facility] 110 [place] [address] PCP - ACO Reach 01/12/23 Anastasia Rayo LPN 112 [facility] 110 [place] [address] 11/08/24 documented as of this encounter
--- OUTSIDE RECORDS SUMMARY | 2025-05-26 09:55 | XMS_ITS | Encounter Summary ---
Author Organization [facility] Address [address] [place] [address] Care Team Providers Care Cable Puller Name Role Phone Beni Nguyen MD Primary Care Provider [phone] Beni Nguyen MD Unavailable [phone] Anastasia Rayo LPN Unavailable Encounter Details Date Type Department Care Team (Late st Contact Info) Description 12/11/2024 [facility] [place] [facility] [address] [facility] 110 [place] [address] Beni Nguyen MD [address] [facility] 110 [place] [address] Social History Tobacco Use Types Packs/Day Years [...] Recorded Patient Health Questionnaire-2 Score 0 12/05/2024 [facility]at ional [...] Team ([facility] Contact Info) Description 07/03/2025 2:40 PM EST Procedure Visit [facility] [address] [facility] 120 [place] [address] Real Og DPM 3006 [facility] 5 [place] [address] documented as of this encounter Visit Diagnoses Not on filedocumented in this encounter Care Teams Cable Puller Relationship Specialty Start Date End Date Beni Nguyen MD [address] [facility] [address] [place] [address] PCP - General Internal Medicine 01/02/23 Beni Nguyen MD [address] [facility] 110 [place] [address] PCP - ACO Reach 01/12/23 Anastasia Rayo LPN 112 [facility] 110 [place] [address] 11/08/24 documented as of this encounter
--- OUTSIDE RECORDS SUMMARY | 2025-05-26 09:55 | XMS_ITS | Encounter Summary ---
Author Organization [facility] Address [address] [place] [address] Phone Care Team Providers Care Pharmaceutical Operator Name Role Phone Beni Nguyen MD Primary Care Provider [phone] Encounter Details Date Type Department Care Team (Late st Contact Info) Description 08/10/2022 Orders Only [facility] LE[facility] [address] [place] [address] Conversion, Onbase Social History Tobacco Use Types [...] Description 09/25/2025 2:10 PM EST Office Visit [facility] [address] [facility] [address] [place] [address] Juan C Hoover, DO [address] [place] [address] [place] [address] Scheduled Orders Name Type Priority Associated Diagnoses Orde r Schedule OUTSIDE LAB SCAN Lab Ordered: 08/10/2022 documented as of this encounter Visit Diagnoses Not on filedocumented in this encounter Care Teams Pharmaceutical Operator Relationship Specialty Start Date End Date Beni Nguyen MD [address] [place] [address] PCP - General 05/18/23 documented as of this encounter
--- OUTSIDE RECORDS SUMMARY | 2025-05-26 09:56 | XMS_ITS | Encounter Summary ---
Author Organization [facility] Address [address] [place] [address] Care Team Providers Care Cold Press Operator Name Role Phone Beni Nguyen MD Primary Care Provider [phone] Beni Nguyen MD Unavailable [phone] Anastasia Rayo LPN Unavailable Encounter Details Date Type Department Care Team (Late st Contact Info) Description 05/05/2025 Abstract [facility] [place] [facility] [address] [facility] 110 [place] [address] Beni Nguyen MD [address] [facility] 110 [place] [address] Social History Tobacco Use Types Packs/Day Years [...] Recorded Patient Health Questionnaire-2 Score 2 04/01/2025 [facility] [...] Upcoming Encounters Date Type Department Care Team ([facility] Contact Info) Description 07/03/2025 2:40 PM EST Procedure Visit [facility] [address] [facility] 120 [place] [address] Real Og DPM 3006 [facility] 5 [place] [address] documented as of this encounter Visit Diagnoses Not on filedocumented in this encounter Care Teams Cold Press Operator Relationship Specialty Start Date End Date Beni Nguyen MD [address] [facility] [address] [place] [address] PCP - General Internal Medicine 01/02/23 Beni Nguyen MD [address] [facility] 110 [place] [address] PCP - ACO Reach 01/12/23 Anastasia Rayo LPN 112 [facility] 110 [place] [address] 11/08/24 documented as of this encounter
--- OUTSIDE RECORDS SUMMARY | 2025-05-26 09:56 | XMS_ITS | Clinical Summary ---
Author Organization [employer] tem Address [id number] [address] [place] [address] Care Team Providers Care School Lunch Monitor Name Role Phone Beni Nguyen MD Primary Care Provider [phone] Allergies No known active allergies Medications omega-3 [...] Medical Devices Not on file Insurance MEDICARE [facility] Care Teams School Lunch Monitor Relationship Specialty Start Date End Date Beni Nguyen MD 112 [facility] 110 [place] [address] PCP - General Internal Medicine 10/02/19
--- OUTSIDE RECORDS SUMMARY | 2025-05-26 09:56 | XMS_ITS | Encounter Summary ---
Author Organization [facility] Address [address] [place] [address] Phone Care Team Providers Care Turbinated Bone Grinder Name Role Phone Beni Nguyen MD Primary Care Provider [phone] Encounter Details Date Type Department Care Team (Late st Contact Info) Description 09/11/2024 Scanned Document [facility] [address] [place] [address] Scanning, Generic Provider Social History Tobacco Use [...] Description 09/25/2025 2:10 PM EST Office Visit [facility] 703 [facility] [address] [place] [address] Juan C Hoover, 703 [facility], [address] [place] [address] documented as of this encounter Procedures Procedure [...] documented as of this encounter Care Teams Turbinated Bone Grinder Relationship Specialty Start Date End Date Beni Nguyen MD 112 [facility] 110 [place] [address] PCP - General 05/18/23 documented as of this encounter
--- OUTSIDE RECORDS SUMMARY | 2025-05-26 09:56 | XMS_ITS | Encounter Summary ---
Author Organization [facility] Address [address] [place] [address] Care Team Providers Care Complex Human Resources Manager Name Role Phone Beni Nguyen MD Primary Care Provider [phone] Beni Nguyen MD Unavailable [phone] Anastasia Rayo LPN Unavailable Encounter Details Date Type Department Care Team (Late st Contact Info) Description 02/17/2025 Abstract [facility] [place] [facility] [address] [facility] 110 [place] [address] Beni Nguyen MD [address] [place] [facility] 110 [place] [address] Social History Tobacco Use Types Packs/Day Years [...] Recorded Patient Health Questionnaire-2 Score 2 02/18/2025 [facility] - [...] CI PODIATRY [address] [facility] [address] [place] [address] Real Og, DPMarcial 3006 [facility] 5 [place] [address] documented as of this encounter Visit Diagnoses Not on filedocumented in this encounter Care Teams Complex Human Resources Manager Relationship Specialty Start Date End Date Beni Nguyen MD [address] [place] [address] [place] [address] PCP - General Internal Medicine 01/02/23 Beni Nguyen MD [address] [place] [address] [place] [address] PCP - ACO Reach 01/12/23 Anastasia Rayo LPN [address] [place] [address] [place] [address] 11/08/24 documented as of this encounter
--- OUTSIDE RECORDS SUMMARY | 2025-05-26 09:56 | XMS_ITS | Encounter Summary ---
Author Organization [facility] Address [address] [place] [address] Care Team Providers Care Conformal Pad Former Name Role Phone Beni Nguyen MD Primary Care Provider [phone] Beni Nguyen MD Unavailable [phone] Anastasia Rayo LPN Unavailable Encounter Details Date Type Department Care Team (Late st Contact Info) Description 05/05/2025 [facility] [address] [facility] 110 [place] [address] Beni Nguyen MD [address] [facility] 110 [place] [address] Social History Tobacco Use Types Packs/Day Years [...] Recorded Patient Health Questionnaire-2 Score 2 04/01/2025 [facility]at ional Health [...] ([facility] Contact Info) Description 07/03/2025 2:40 PM EST Procedure Visit [facility] [address] [facility] 120 [place] [address] Real Og DPM 3006 [facility] 5 [place] [address] documented as of this encounter Visit Diagnoses Not on filedocumented in this encounter Care Teams Conformal Pad Former Relationship Specialty Start Date End Date Beni Nguyen MD [address] [facility] 110 [place] [address] PCP - General Internal Medicine 01/02/23 Beni Nguyen MD [address] [facility] 110 [place] [address] PCP - ACO Reach 01/12/23 Anastasia Rayo LPN 112 [facility] 110 [place] [address] 11/08/24 documented as of this encounter
--- OUTSIDE RECORDS SUMMARY | 2025-05-26 09:56 | XMS_ITS | Encounter Summary ---
Author Organization [facility] Address [address] [place] [address] Care Team Providers Care Rigging And Controls Aircraft Mechanic Name Role Phone Beni Nguyen MD Primary Care Provider [phone] Beni Nguyen MD Unavailable [phone] Anastasia Rayo LPN Unavailable Encounter Details Date Type Department Care Team (Late st Contact Info) Description 03/18/2025 Abstract [facility] [place] [facility] [address] [facility] 110 [place] [address] Beni Nguyen MD 112 [address] [facility] 110 [place] [address] Social History Tobacco Use Types Packs/Day Years [...] Recorded Patient Health Questionnaire-2 Score 2 02/18/2025 [facility] of Occupat ional Health - [...] Upcoming Encounters Date Type Department Care Team ([facility] Contact Info) Description 07/03/2025 2:40 PM EST Procedure Visit [facility] [address] [facility] 120 [place] [address] Real Og DPM 3[address] [facility] 5 [place] [address] documented as of this encounter Visit Diagnoses Not on filedocumented in this encounter Care Teams Rigging And Controls Aircraft Mechanic Relationship Specialty Start Date End Date Beni Nguyen MD [address] [facility] 110 [place] [address] PCP - General Internal Medicine 01/02/23 Beni Nguyen MD [address] [facility] 110 [place] [address] PCP - ACO Reach 01/12/23 Anastasia Rayo LPN 112 [facility] 110 [place] [address] 11/08/24 documented as of this encounter
--- OUTSIDE RECORDS SUMMARY | 2025-05-26 09:56 | XMS_ITS | Encounter Summary ---
Author Organization [facility] Address [address] [place] [address] Care Team Providers Care Margarine Maker Name Role Phone Beni Nguyen MD Primary Care Provider [phone] Beni Nguyen MD Unavailable [phone] Anastasia Rayo LPN Unavailable Encounter Details Date Type Department Care Team (Late st Contact Info) Description 02/14/2025 Abstract [facility] [place] [facility] [address] [facility] 110 [place] [address] Beni Nguyen MD [address] [facility] 110 [place] [address] Social History Tobacco Use Types Packs/Day Years [...] Encounters Date Type Department Care Team ([facility] Contact Info) Description 07/03/2025 2:40 PM EST Procedure Visit [facility] [address] [facility] 120 [place] [address] Real Og DPM 3006 [facility] 5 [place] [address] documented as of this encounter Visit Diagnoses Not on filedocumented in this encounter Care Teams Margarine Maker Relationship Specialty Start Date End Date Beni Nguyen MD [address] [facility] 110 [place] [address] PCP - General Internal Medicine 01/02/23 Beni Nguyen MD [address] [facility] 110 [place] [address] PCP - ACO Reach 01/12/23 Anastasia Rayo LPN 112 [facility] 110 [place] [address] 11/08/24 documented as of this encounter
--- OUTSIDE RECORDS SUMMARY | 2025-05-26 09:56 | XMS_ITS | Encounter Summary ---
Author Organization [facility] Address [address] [place] [address] Care Team Providers Care Shipfitter Name Role Phone Beni Nguyen MD Primary Care Provider [phone] Beni Nguyen MD Unavailable [phone] Anastasia Rayo LPN Unavailable Encounter Details Date Type Department Care Team (Late st Contact Info) Description 04/17/2025 Abstract [facility] [place] [facility] [address] [facility] 110 [place] [address] Beni Nguyen MD 112 [place] [facility] 110 [place] [address] Social History Tobacco Use Types Packs/Day Years [...] Recorded Patient Health Questionnaire-2 Score 2 04/01/2025 [facility] of Occupat ional [...] Upcoming Encounters Date Type Department Care Team ([facility] Contact Info) Description 07/03/2025 2:40 PM EST Procedure Visit [facility] [address] [facility] 120 [place] [address] Real Og DPM 3006 [facility] 5 [place] [address] documented as of this encounter Visit Diagnoses Not on filedocumented in this encounter Care Teams Shipfitter Relationship Specialty Start Date End Date Beni Nguyen MD [address] [facility] [address] [place] [address] PCP - General Internal Medicine 01/02/23 Beni Nguyen MD [address] [facility] [address] [place] [address] PCP - ACO Reach 01/12/23 Anastasia Rayo LPN 112 [facility] 110 [place] [address] 11/08/24 documented as of this encounter
--- OUTSIDE RECORDS SUMMARY | 2025-05-26 09:56 | XMS_ITS | Encounter Summary ---
Author Organization [facility] Address [address] [place] [address] Care Team Providers Care Youth Nutritional Monitor Name Role Phone Beni Nguyen MD Primary Care Provider [phone] Beni Nguyen MD Unavailable [phone] Anastasia Rayo LPN Unavailable Encounter Details Date Type Department Care Team (Late st Contact Info) Description 03/07/2025 Abstract [facility] [place] [facility] [address] [facility] 110 [place] [address] Beni Nguyen MD [address] [facility] 110 [place] [address] Social History Tobacco Use Types Packs/Day Years [...] ([facility] Contact Info) Description 07/03/2025 2:40 PM EST Procedure Visit [facility] [address] [facility] 120 [place] [address] Real Og DPM 3006 [facility] 5 [place] [address] documented as of this encounter Visit Diagnoses Not on filedocumented in this encounter Care Teams Youth Nutritional Monitor Relationship Specialty Start Date End Date Beni Nguyen MD [address] [facility] 110 [place] [address] PCP - General Internal Medicine 01/02/23 Beni Nguyen MD [address] [facility] 110 [place] [address] PCP - ACO Reach 01/12/23 Anastasia Rayo LPN 112 [facility] 110 [place] [address] 11/08/24 documented as of this encounter
--- OUTSIDE RECORDS SUMMARY | 2025-05-26 09:56 | XMS_ITS | Encounter Summary ---
Author Organization [facility] Address [address] [place] [address] Care Team Providers Care Cook Fry Name Role Phone Beni Nguyen MD Primary Care Provider [phone] Beni Nguyen MD Unavailable [phone] Anastasia Rayo LPN Unavailable Encounter Details Date Type Department Care Team (Late st Contact Info) Description 05/22/2025 Bamboo flowsheet [facility] [place] [facility] [address] [facility] 110 [place] [address] Leela Cherry, ACCESS LIAISON [address] [facility] 110 [place] [address] Social History Tobacco Use Types Packs/Day Years [...] Recorded Patient Health Questionnaire-2 Score 0 05/22/2025 [facility] of Occupat ional [...] [address] [facility] 120 [place] [address] Real gO DPM 3006 [facility] 5 [place] [address] documented as of this encounter Visit Diagnoses Not on filedocumented in this encounter Care Teams Cook Fry Relationship Specialty Start Date End Date Beni Nguyen MD [address] [facility] 110 [place] [address] PCP - General Internal Medicine 01/02/23 Beni Nguyen MD [address] [facility] 110 [place] [address] PCP - ACO Reach 01/12/23 Anastasia Rayo LPN [address] [facility] 110 [place] [address] 11/08/24 documented as of this encounter
--- OUTSIDE RECORDS SUMMARY | 2025-05-26 09:56 | XMS_ITS | Encounter Summary ---
Author Organization [facility] Address [address] [place] [address] Care Team Providers Care Casework Supervisor Name Role Phone Beni Nguyen MD Primary Care Provider [phone] Beni Nguyen MD Unavailable [phone] Anastasia aRyo LPN Unavailable Encounter Details Date Type Department Care Team (Late st Contact Info) Description 02/24/[address] [facility] [address] [facility] 110 [place] [address] Beni Nguyen MD 112 [facility] 110 [place] [address] Social History Tobacco Use Types Packs/Day Years [...] Team ([facility] Contact Info) Description 07/03/2025 2:40 PM EST Procedure Visit [facility] [address] [facility] 120 [place] [address] Real Og DPM 3006 [facility] 5 [place] [address] documented as of this encounter Visit Diagnoses Not on filedocumented in this encounter Care Teams Casework Supervisor Relationship Specialty Start Date End Date Beni Nguyen MD [address] [facility] 110 [place] [address] PCP - General Internal Medicine 01/02/23 Beni Nguyen MD [address] [facility] 110 [place] [address] PCP - ACO Reach 01/12/23 Anastasia Rayo LPN 112 [facility] 110 [place] [address] 11/08/24 documented as of this encounter
--- OUTSIDE RECORDS SUMMARY | 2025-05-26 09:56 | XMS_ITS | Encounter Summary ---
Author Organization [facility] Address [address] [place] [address] Phone Care Team Providers Care Copyright Manager Name Role Phone Beni Nguyen MD Primary Care Provider [phone] Encounter Details Date Type Department Care Team (Late st Contact Info) Description 06/10/2023 Scanned Document [facility] [address] [place] [address] Scanning, Generic Provider Social History Tobacco Use [...] Description 09/25/2025 2:10 PM EST Office Visit [facility] 703 [facility] [address] [place] [address] Juan C Hoover, 703 [facility], [address] [place], [place] [address] documented as of this encounter Visit Diagnoses Not on filedocumented in this encounter Care Teams Copyright Manager Relationship Specialty Start Date End Date Beni Nguyen MD [address] [facility] 110 [place] [address] PCP - General 05/18/23 documented as of this encounter
--- OUTSIDE RECORDS SUMMARY | 2025-05-26 09:56 | XMS_ITS | Encounter Summary ---
Author Organization [facility] Address [address] [place] [address] Care Team Providers Care Mine Patrol Name Role Phone Beni Nguyen MD Primary Care Provider [phone] Beni Nguyen MD Unavailable [phone] Anastasia Rayo LPN Unavailable Encounter Details Date Type Department Care Team (Late st Contact Info) Description 01/08/2025 Abstract [facility] [place] [facility] [address] [facility] 110 [place] [address] Beni Nguyen MD 112 [place] [facility] 110 [place] [address] Social History Tobacco Use Types Packs/Day Years [...] Recorded Patient Health Questionnaire-2 Score 0 12/05/2024 [facility] of Occupat ional [...] Encounters Date Type Department Care Team ([facility] Contact Info) Description 07/03/2025 2:40 PM EST Procedure Visit [facility] [address] [facility] 120 [place] [address] Real Og DPM 3006 [facility] 5 [place] [address] documented as of this encounter Visit Diagnoses Not on filedocumented in this encounter Care Teams Mine Patrol Relationship Specialty Start Date End Date Beni Nguyen MD [address] [facility] 110 [place] [address] PCP - General Internal Medicine 01/02/23 Beni Nguyen MD [address] [facility] 110 [place] [address] PCP - ACO Reach 01/12/23 Anastasia Rayo LPN 112 [facility] 110 [place] [address] 11/08/24 documented as of this encounter
--- OUTSIDE RECORDS SUMMARY | 2025-05-26 09:56 | XMS_ITS | Encounter Summary ---
Author Organization [facility] Address [address] [place] [address] Care Team Providers Care Wrist Liner Name Role Phone Beni Nguyen MD Primary Care Provider Beni Nguyen MD Unavailable [phone] Anastasia Rayo LPN Unavailable Encounter Details Date Type Department Care Team (Late st Contact Info) Description 05/02/2025 Abstract [facility] [place] [facility] [address] [facility] 110 [place] [address] Beni Nguyen MD [address] [facility] 110 [place] [address] Social History Tobacco Use Types Packs/Day Years [...] Team ([facility] Contact Info) Description 07/03/2025 2:40 PM EST Procedure Visit [facility] [address] [facility] 120 [place] [address] Real Og DPM 3006 [facility] 5 [place] [address] documented as of this encounter Visit Diagnoses Not on filedocumented in this encounter Care Teams Wrist Liner Relationship Specialty Start Date End Date Beni Nguyen MD [address] [facility] 110 [place] [address] PCP - General Internal Medicine 01/02/23 Beni Nguyen MD [address] [facility] 110 [place] [address] PCP - ACO Reach 01/12/23 Anastasia Rayo LPN 112 [facility] 110 [place] [address] 11/08/24 documented as of this encounter
--- OUTSIDE RECORDS SUMMARY | 2025-05-26 09:56 | XMS_ITS | Encounter Summary ---
Author Organization [facility] Address [address] [place] [address] Phone Care Team Providers Care Diesel Technician Mechanic Name Role Phone Beni Nguyen MD Primary Care Provider [phone] Encounter Details Date Type Department Care Team (Late st Contact Info) Description 05/16/2023 Scanned Document [facility] [address] [place] [address] Conversion, Onbase Social History Tobacco Use Types [...] Description 09/25/2025 2:10 PM EST Office Visit [facility] [address] [place] [address] Juan C Hoover [address] [place] [address] documented as of this encounter Procedures Procedure Name Priority Date/Time Associated Diagnosis Comments ECHOCARDIOGRAM 05/16/2023 documented in this encounter Results * ECHOCARDIOGRAM (05/16/2023) Narrative 05/16/2023 Ordered by an unspecified provider. us Onbase Conversion CV ECHO PROCEDURES Final Resul t documented in this encounter Visit Diagnoses Not on filedocumented in this encounter Care Teams Diesel Technician Mechanic Relationship Specialty Start Date End Date Beni Nguyen MD [address] [address] PCP - General 05/18/23 documented as of this encounter
--- OUTSIDE RECORDS SUMMARY | 2025-05-26 09:56 | XMS_ITS | Clinical Summary ---
Author Organization [facility] Address [address] [place] [address] Phone Care Team Providers Care Human Relations Manager Name Role Phone Beni Nguyen MD Primary Care Provider [phone] Allergies Active Allergy Reactions Criticality Noted Date [...] capsule by mouth once daily. Active omega 7-euo-tlq-fish oil 360 mg-108 mg- 180 mg-1,200 mg [...] once daily. 60 tablet 11 5 11/05/19 Active nystatin (Mycostatin) 100,000 unit/gram powder Apply [...] Never smoked tobacco 09/24/2024 Paroxysmal atrial fibrillation ([facility]) Assessment & Plan (11/04/2024 4:28 PM EDT): EKG last week was sinus rhythm with PVC. Myasthenia gravis (Multi) 09/20/2023 High risk medication use 09/20/2023 Abnormal [...] recent fluid retention. Hyperlipidemia 06/05/2023 Pulmonary embolism (Multi) 06/05/2023 Echocardiogram abnormal 06/05/2023 Malignant neoplasm of [...] Description 09/25/2025 2:10 PM EST Office Visit [facility] [address] [place] [address] Juan C Hoover, [address] [place], [place] [address] Health Maintenance Due Date Last Done Comments [...] 169(H) 65 - 99 mg/dL [facility] Comment: Fasting reference interval For someone without known diabetes, a glucose value >125 mg/dL indicates that they may have diabetes and this should be confirmed with a follow-up test. UREA NITROGEN (BUN) 17 7 - 25 mg/dL [facility] CREATININE 1.03 0.70 - 1.22 mg/dL [facility] EGFR 73 > OR = 60 mL/min/1. 73m2 [facility] BUN/CREATININE RATIO SEE NOTE: 6 - 22 (calc) [facility] Comment: Not Reported: BUN and Creatinine are within reference range. SODIUM 142 135 - 146 mmol/L [facility] POTASSIUM 3.6 3.5 - 5.3 mmol/L [facility] CHLORIDE 101 98 - 110 mmol/L [facility] CARBON DIOXIDE 29 20 - 32 mmol/L [facility] ELECTROLYTE BALANCE 12 7 - 17 mmol/L (calc) [facility] CALCIUM 9.1 8.6 - 10.3 mg/dL [facility] Blood Venous blood specimen / Unknown 11/08/2024 10:26 AM EDT 11/08/2024 10:27 AM EDT us Melonie Rizvi SYSTEM AUDITOR-SENIOR LINUX ADMINISTRATOR LAB BLOOD ORDERABLES Julianna ambrocio Result [facility] [address] [facility], 4 [place] [address] * ECHOCARDIOGRAM (05/16/2023) Narrative 05/16/2023 Ordered by an unspecified provider. us Onbase Conversion CV ECHO PROCEDURES Final Resul t from Last 3 Months or Most Recently Relevant to Health Maintenance Insurance MEDICARE PART A AND B [facility] Care Teams Human Relations Manager Relationship Specialty Start Date End Date Beni Nguyen MD [address] [facility] 110 [place] [address] PCP - General 05/18/23
--- OUTSIDE RECORDS SUMMARY | 2025-05-26 09:56 | XMS_ITS | Encounter Summary ---
Author Organization [facility] Address [address] [place] [address] Care Team Providers Care Food Beverage Manager Name Role Phone Beni Nguyen MD Primary Care Provider [phone] Beni Nguyen MD Unavailable [phone] Anastasia Rayo LPN Unavailable Encounter Details Date Type Department Care Team (Late st Contact Info) Description 05/05/[address] [facility] [address] [facility] 110 [place] [address] Beni Nguyen MD [address] [facility] 110 [place] [address] Social History Tobacco Use Types Packs/Day Years [...] Questionnaire-2 Score 2 04/01/2025 [facility] of Occupat ional Health - [...] Encounters Date Type Department Care Team ([facility] Contact Info) Description 07/03/2025 2:40 PM EST Procedure Visit [facility] [address] [facility] 120 [place] [address] Real Og DPM 3006 [facility] 5 [place] [address] documented as of this encounter Visit Diagnoses Not on filedocumented in this encounter Care Teams Food Beverage Manager Relationship Specialty Start Date End Date Beni Nguyen MD [address] [facility] 110 [place] [address] PCP - General Internal Medicine 01/02/23 Beni Nguyen MD [address] [facility] 110 [place] [address] PCP - ACO Reach 01/12/23 Anastasia Rayo LPN 112 [facility] 110 [place] [address] 11/08/24 documented as of this encounter
--- OUTSIDE RECORDS SUMMARY | 2025-05-26 09:56 | XMS_ITS | Encounter Summary ---
Author Organization [facility] Address [address] [place] [address] Care Team Providers Care Coffee Roaster Helper Name Role Phone Beni Nguyen MD Primary Care Provider [phone] Beni Nguyen MD Unavailable [phone] Anastasia Rayo LPN Unavailable Encounter Details Date Type Department Care Team (Late st Contact Info) Description 02/24/2025 [facility] [place] [facility] [address] [facility] 110 [place] [address] Beni Nguyen MD 112 [place] [facility] 110 [place] [address] Social History Tobacco Use Types Packs/Day Years [...] Recorded Patient Health Questionnaire-2 Score 2 02/18/2025 [facility] of Occupat ional Health [...] [facility] Contact Info) Description 07/03/2025 2:40 PM EST Procedure Visit [facility] [address] [facility] 120 [place] [address] Real Og DPM 3006 [facility] 5 [place] [address] documented as of this encounter Visit Diagnoses Not on filedocumented in this encounter Care Teams Coffee Roaster Helper Relationship Specialty Start Date End Date Beni Nguyen MD [address] [facility] [address] [place] [address] PCP - General Internal Medicine 01/02/23 Beni Nguyen MD [address] [facility] 110 [place] [address] PCP - ACO Reach 01/12/23 Anastasia Rayo LPN 112 [facility] 110 [place] [address] 11/08/24 documented as of this encounter
--- OUTSIDE RECORDS SUMMARY | 2025-05-26 09:56 | XMS_ITS | Encounter Summary ---
Author Organization [facility] Address [address] [place] [address] Care Team Providers Care Automobile Body Customizer Name Role Phone Beni Nguyen MD Primary Care Provider [phone] Beni Nguyen MD Unavailable [phone] Anastasia Rayo LPN Unavailable Encounter Details Date Type Department Care Team (Late st Contact Info) Description 03/19/2025 Abstract [facility] [place] [facility] [address] [facility] 110 [place] [address] Beni Nguyen MD 112 [address] [facility] 110 [place] [address] Social History Tobacco Use Types Packs/Day Years [...] Questionnaire-2 Score 2 02/18/2025 [facility] [...] Date Type Department Care Team ([facility] Contact Info) Description 07/03/2025 2:40 PM EST Procedure Visit [facility] [address] [facility] 120 [place] [address] Real Og DPM 3006 [facility] 5 [place] [address] documented as of this encounter Visit Diagnoses Not on filedocumented in this encounter Care Teams Automobile Body Customizer Relationship Specialty Start Date End Date Beni Nguyen MD [address] [facility] 110 [place] [address] PCP - General Internal Medicine 01/02/23 Beni Nguyen MD [address] [facility] 110 [place] [address] PCP - ACO Reach 01/12/23 Anastasia Rayo LPN 112 [facility] 110 [place] [address] 11/08/24 documented as of this encounter
--- OUTSIDE RECORDS SUMMARY | 2025-05-26 09:56 | XMS_ITS | Encounter Summary ---
Author Organization [facility] Address [address] [place] [address] Phone Care Team Providers Care Cut Order Hand Name Role Phone Beni Nguyen MD Primary Care Provider [phone] Encounter Details Date Type Department Care Team (Late st Contact Info) Description 05/21/2023 Scanned Document [facility] [address] [place] [address] Scanning, Generic Provider Social History Tobacco Use [...] EST Office Visit [facility] 703 [facility] [place] 250 [place] [address] Juan C Hoover, 703 [facility] 2, [address] 250 [place], [place] [address] documented as of this encounter Visit Diagnoses Not on filedocumented in this encounter Care Teams Cut Order Hand Relationship Specialty Start Date End Date Beni Nguyen MD [address] [facility] 110 [place] [address] PCP - General 05/18/23 documented as of this encounter
--- OUTSIDE RECORDS SUMMARY | 2025-05-26 09:56 | XMS_ITS | Clinical Summary ---
Author Organization [facility] Address [address] [facility], [address] [place] [address] Care Team Providers Care Bridge Ironworker Name Role Phone Beni Nguyen MD Primary Care Provider [phone] Allergies No known active allergies Medications loratadine (CLARITIN REDITABS) 10 MG dissolvable tablet Take by mouth 02/17/2022 Active Reading-3 Fatty Acids (FISH OIL) 1200 MG CAPS [...] 7:20 PM 10/18/2022 5:43 PM Care Teams Bridge Ironworker Relationship Specialty Start Date End Date Beni Nguyen MD [address] [place] [address] PCP - General Internal Medicine 10/14/22
--- OUTSIDE RECORDS SUMMARY | 2025-05-26 09:56 | XMS_ITS | Encounter Summary ---
Author Organization [facility] Address [address] [place] [address] Care Team Providers Care Delinquent Tax Collection Assistant Name Role Phone Beni Nguyen MD Primary Care Provider [phone] Beni Nguyen MD Unavailable [phone] Anastasia Rayo LPN Unavailable Encounter Details Date Type Department Care Team (Late st Contact Info) Description 02/14/2025 Abstract [facility] [place] [facility] [address] [facility] 110 [place] [address] Beni Nguyen MD 112 [address] [facility] 110 [place] [address] Social History Tobacco Use Types Packs/Day Years [...] Recorded Patient Health Questionnaire-2 Score 2 02/18/2025 [facility] [...] Upcoming Encounters Date Type Department Care Team ([facility] Contact Info) Description 07/03/2025 2:40 PM EST Procedure Visit [facility] [address] [facility] 120 [place] [address] Real Og DPM 3006 [facility] 5 [place] [address] documented as of this encounter Visit Diagnoses Not on filedocumented in this encounter Care Teams Delinquent Tax Collection Assistant Relationship Specialty Start Date End Date Beni Nguyen MD [address] [facility] 110 [place] [address] PCP - General Internal Medicine 01/02/23 Beni Nguyen MD [address] [facility] 110 [place] [address] PCP - ACO Reach 01/12/23 Anastasia Rayo LPN 112 [facility] 110 [place] [address] 11/08/24 documented as of this encounter
--- OUTSIDE RECORDS SUMMARY | 2025-05-26 09:56 | XMS_ITS | Encounter Summary ---
Author Organization [facility] Address [address] [place] [address] Care Team Providers Care Manager Asset Management Name Role Phone Beni Nguyen MD Primary Care Provider [phone] Beni Nguyen MD Unavailable [phone] Anastasia Rayo LPN Unavailable Encounter Details Date Type Department Care Team (Late st Contact Info) Description 02/27/[address] [place] [facility] [address] [facility] 110 [place] [address] Beni Nguyen MD [address] [facility] 110 [place] [address] Social History Tobacco Use Types Packs/Day Years [...] Recorded Patient Health Questionnaire-2 Score 2 02/18/2025 [facility] - [...] Upcoming Encounters Date Type Department Care Team ([facility] Contact Info) Description 07/03/2025 2:40 PM EST Procedure Visit [facility] [address] [facility] 120 [place] [address] Real Og DPM 3006 [facility] 5 [place] [address] documented as of this encounter Visit Diagnoses Not on filedocumented in this encounter Care Teams Manager Asset Management Relationship Specialty Start Date End Date Beni Nguyen MD [address] [facility] 110 [place] [address] PCP - General Internal Medicine 01/02/23 Beni Nguyen MD [address] [facility] 110 [place] [address] PCP - ACO Reach 01/12/23 Anastasia Rayo LPN 112 [facility] 110 [place] [address] 11/08/24 documented as of this encounter
--- OUTSIDE RECORDS SUMMARY | 2025-05-26 09:56 | XMS_ITS | Encounter Summary ---
Author Organization [facility] Address [address] [place] [address] Phone Care Team Providers Care Lining Vamper Name Role Phone Beni Nguyen MD Primary Care Provider [phone] Encounter Details Date Type Department Care Team (Late st Contact Info) Description 09/13/2024 Scanned Document [facility] [address] [place] [address] Scanning, Generic Provider Social History Tobacco Use [...] Description 09/25/2025 2:10 PM EST Office Visit [place] [address] [facility] [address] 250 [place] [address] Juan C Hoover DO 703 [facility] 2, [address] 250 [place] [address] documented as of this encounter Visit Diagnoses Not on filedocumented in this encounter Additional Health Concerns Assessment Noted Time A fall risk assessment has been complete d for the patient 09/20/2023 12:14 PM EST documented as of this encounter Care Teams Lining Vamper Relationship Specialty Start Date End Date Beni Nguyen MD [address] [place] 110 [place] [address] PCP - General 05/18/23 documented as of this encounter
--- OUTSIDE RECORDS SUMMARY | 2025-05-26 09:56 | XMS_ITS | Encounter Summary ---
Author Organization [facility] Address [address] [place] [address] Phone Care Team Providers Care Illuminator Name Role Phone Beni Nguyen MD Primary Care Provider [phone] Encounter Details Date Type Department Care Team (Late st Contact Info) Description 07/31/2023 Scanned Document [facility] [address] [place] [address] Scanning, Generic Provider Social History Tobacco Use [...] Description 09/25/2025 2:10 PM EST Office Visit [facility] 703 [facility] [address] 250 [place] [address] Juan C Hoover, 703 [facility] 2, [address] 250 [place], [place] [address] documented as of this encounter Visit Diagnoses Not on filedocumented in this encounter Care Teams Illuminator Relationship Specialty Start Date End Date Beni Nguyen MD [address] [facility] 110 [place] [address] PCP - General 05/18/23 documented as of this encounter
--- OUTSIDE RECORDS SUMMARY | 2025-05-26 09:56 | XMS_ITS | Encounter Summary ---
Author Organization [facility] Address [address] [place] [address] Care Team Providers Care Health Care Administrator Name Role Phone Beni Nguyen MD Primary Care Provider [phone] Beni Nguyen MD Unavailable [phone] Anastasia Rayo LPN Unavailable Encounter Details Date Type Department Care Team (Late st Contact Info) Description 05/05/2025 [facility] [place] [facility] [address] [facility] 110 [place] [address] Beni Nguyen MD 112 [place] [facility] 110 [place] [address] Social History Tobacco Use Types Packs/Day Years [...] Health Questionnaire-2 Score 2 04/01/2025 [facility]at ional [facility] [...] Encounters Date Type Department Care Team ([facility] Contact Info) Description 07/03/2025 2:40 PM EST Procedure Visit [facility] 112 [address] [facility] 120 [place] [address] Real Og DPM 3006 [facility] 5 [place] [address] documented as of this encounter Visit Diagnoses Not on filedocumented in this encounter Care Teams Health Care Administrator Relationship Specialty Start Date End Date Bein Nguyen MD [address] [facility] 110 [place] [address] PCP - General Internal Medicine 01/02/23 Beni Nguyen MD [address] [facility] 110 [place] [address] PCP - ACO Reach 01/12/23 Anastasia Rayo LPN 112 [facility] 110 [place] [address] 11/08/24 documented as of this encounter
--- OUTSIDE RECORDS SUMMARY | 2025-05-26 09:56 | XMS_ITS | Encounter Summary ---
Author Organization [facility] Address [address] [place] [address] Care Team Providers Care Worm Grower Name Role Phone Beni Nguyen MD Primary Care Provider Beni Nguyen MD Unavailable [phone] Anastasia Rayo LPN Unavailable Encounter Details Date Type Department Care Team (Late st Contact Info) Description 03/27/2025 [facility] [place] [facility] [address] [facility] 110 [place] [address] Beni Nguyen MD [address] [place] [facility] 110 [place] [address] Social History Tobacco Use Types Packs/Day Years [...] Recorded Patient Health Questionnaire-2 Score 2 02/18/2025 [facility] of Occupat ional [...] Care Team ([facility] Contact Info) Description 07/03/2025 2:40 PM EST Procedure Visit [facility] [address] [facility] 120 [place] [address] Real Og DPM 3006 [facility] 5 [place] [address] documented as of this encounter Visit Diagnoses Not on filedocumented in this encounter Care Teams Worm Grower Relationship Specialty Start Date End Date Beni Nguyen MD [address] [facility] 110 [place] [address] PCP - General Internal Medicine 01/02/23 Beni Nguyen MD [address] [facility] 110 [place] [address] PCP - ACO Reach 01/12/23 Anastasia Rayo LPN 112 [facility] 110 [place] [address] 11/08/24 documented as of this encounter
--- OUTSIDE RECORDS SUMMARY | 2025-05-26 09:56 | XMS_ITS | Encounter Summary ---
Author Organization [facility] Address [address] [place] [address] Care Team Providers Care Component Assembler Supervisor Name Role Phone Beni Nguyen MD Primary Care Provider [phone] Beni Nguyen MD Unavailable [phone] Anastasia Rayo LPN Unavailable Encounter Details Date Type Department Care Team (Latest Contact Info) Description 05/22/2025 Travel Social History Tobacco Use Types Packs/Day [...] Recorded Patient Health Questionnaire-2 Score 0 05/22/2025 [facility] of Occupat ional Health [...] LORENA COELLO documented as of this encounter Plan of Treatment Upcoming Encounters Date Type Department Care Team (Late st Contact Info) Description 07/03/2025 2:40 PM EST Procedure Visit [facility] [address] [facility] 120 [place] [address] Real Og, DPM 3006 [facility] 5 [place] [address] documented as of this encounter Visit Diagnoses Not on filedocumented in this encounter Care Teams Component Assembler Supervisor Relationship Specialty Start Date End Date Beni Nguyen MD [address] [place] 110 [place] [address] PCP - General Internal Medicine 01/02/23 Beni Nguyen MD [address] [address] PCP - ACO Reach 01/12/23 Anastasia Rayo LPN [address] [address] 11/08/24 documented as of this encounter
--- OUTSIDE RECORDS SUMMARY | 2025-05-26 09:56 | XMS_ITS | Encounter Summary ---
Author Organization [facility] Address [address] [place] [address] Care Team Providers Care Filter Press Tender Name Role Phone Beni Nguyen MD Primary Care Provider [phone] Beni Nguyen MD Unavailable [phone] Anastasia Rayo LPN Unavailable Encounter Details Date Type Department Care Team (Late st Contact Info) Description 04/23/2025 Abstract [facility] [place] [facility] [address] [facility] 110 [place] [address] Beni Nguyen MD 112 [facility] 110 [place] [address] Social History Tobacco Use Types Packs/Day Years [...] Recorded Patient Health Questionnaire-2 Score 2 04/01/2025 [facility] of Occupat ional Health - Occupational [...] Department Care Team ([facility] Contact Info) Description 07/03/2025 2:40 PM EST Procedure Visit [facility] [address] [facility] 120 [place] [address] Real Og DPM 3006 [facility] 5 [place] [address] documented as of this encounter Visit Diagnoses Not on filedocumented in this encounter Care Teams Filter Press Tender Relationship Specialty Start Date End Date Beni Nguyen MD [address] [facility] 110 [place] [address] PCP - General Internal Medicine 01/02/23 Beni Nguyen MD [address] [facility] 110 [place] [address] PCP - ACO Reach 01/12/23 Anastasia Rayo LPN 112 [facility] 110 [place] [address] 11/08/24 documented as of this encounter
--- OUTSIDE RECORDS SUMMARY | 2025-05-26 09:56 | XMS_ITS | Encounter Summary ---
Author Organization [facility] Address [address] [place] [address] Phone Care Team Providers Care Gym Teacher Name Role Phone Beni Nguyen MD Primary Care Provider [phone] Encounter Details Date Type Department Care Team (Late st Contact Info) Description 07/28/[address] [facility] [address] [place] [address] Scanning, Generic Provider Social History Tobacco Use [...] Description 09/25/2025 2:10 PM EST Office Visit [place] [id number] [facility] 250 [place] [address] Juan C Hoover 703 [facility] 2, [address] 250 [place] [address] Scheduled Orders Name Type Priority Associated Diagnoses Orde r Schedule Ultrasound- On[facility] Scan Imaging O rdered: 07/28/2024 documented as of this encounter Visit Diagnoses Not on filedocumented in this encounter Additional Health Concerns Assessment Noted Time A fall risk assessment has been complete d for the patient 09/20/2023 12:14 PM EST documented as of this encounter Care Teams Gym Teacher Relationship Specialty Start Date End Date Beni Nguyen MD 112 [facility] 110 [place] [address] PCP - General 05/18/23 documented as of this encounter
--- OUTSIDE RECORDS SUMMARY | 2025-05-26 09:56 | XMS_ITS | Encounter Summary ---
Author Organization [facility] Address [address] [place] [address] Phone Care Team Providers Care Incubator Tender Name Role Phone Beni Nguyen MD Primary Care Provider [phone] Encounter Details Date Type Department Care Team (Late st Contact Info) Description 10/14/2024 Scanned Document [facility] [address] [place] [address] Scanning, Generic Provider Social History Tobacco Use [...] EST Office Visit [facility] 703 [facility] [address] 250 [place] [address] Juan C Hoover DO 703 [facility] 2, [address] 250 [place] [address] documented as of this encounter [...] documented as of this encounter Care Teams Incubator Tender Relationship Specialty Start Date End Date Beni Nguyen MD 112 [place] [address] PCP - General 05/18/23 documented as of this encounter
--- OUTSIDE RECORDS SUMMARY | 2025-05-26 09:57 | XMS_ITS | Encounter Summary ---
Author Organization [facility] Address [address] [place] [address] Care Team Providers Care Circus Hand Name Role Phone Beni Nguyen MD Primary Care Provider [phone] Beni Nguyen MD Unavailable Esther Connolly RN Unavailable [phone] Anastasia Rayo LPN Unavailable Encounter Details [...] [facility] 120 [place] [address] Real Og DPM 3006 [facility] 5 [place] [address] documented as of this encounter Procedures Procedure Name Priority Date/Time Associated Diagnosis Comments XR SACRUM COCCYX 2+ VIEWS 12/22/2023 2:30 PM EDT documented in this encounter Results * XR sacrum coccyx 2+ views (12/22/2023 2:30 PM EDT) Anatomical Region Laterality Modality Sacrum, Coccyx Radiographic Michelle ging 12/22/2023 2:30 PM EDT Narrative 12/22/2023 2:32 PM EDT The [address] [address] XRay Report Signed Patient: ANKUR REILLY MR#: [id number] : 1945 Acct:[id number] Age/Sex: 78 / M ADM Date: 12/22/23 Loc: RAD Attending Dr: Jadyn Wyman M.D. Ordering Physician: Jadyn Wyman M.D. Date of Service: 12/22/23 Procedure(s): XR sacrum coccyx min 2V Accession Number(s): [id number] cc: BENI NGUYEN ; Jadyn Wyman M.D. The [address] [address] Patient Name: ANKUR REILLY MRN: [facility]:[id number] date: 1945 Sex: M Assigned Patient Location: RAD Current Patient Location: RAD Accession/Order Number: [id number] Exam Date: 12/22/2023 13:20 Report Date: 12/22/2023 [...] Signed By: 12/22/23 1432 DD/ 1430 TD/TT: Senior Health Educator: Procedure Note Radiology, Radiologist, MD - 12/22/2023 [place] [address] XRay Report Signed Patient: ANKUR REILLY [facility]#: [id number] : 1945cct:[id number] Age/Sex: 78 / MADM Date: 12/22/23 Loc: RAD Attending Dr: Jadyn Wyman M.D. Ordering Physician: Jadyn Wyman M.D. Date of Service: 12/22/23 Procedure(s): XR sacrum coccyx min 2V Accession Number(s): [id number] cc: BENI NGUYEN ; Jadyn Wyman M.D. [address] [address] Patient Name: ANKUR REILLY MRN: [id number] date: 1945 Sex: M Assigned Patient Location: RAD Current Patient Location: RAD Accession/Order Number: [id number] Exam Date: 12/22/2023 13:20 Report Date: 12/22/2023 [...] M.D. Signed By:12/22/23 1432 DD/ 1430 TD/TT: Senior Health Educator: Generic External Data Provider IMG XR PROCEDURES Final Result documented in this encounter Visit Diagnoses Not on filedocumented in this encounter Care Teams Circus Hand Relationship Specialty Start Date End Date Beni Nguyen MD [address] [facility] 110 [place] [address] PCP - General Internal Medicine 01/02/23 Beni Nguyen MD [address] [facility] 110 [place] [address] PCP - ACO Reach 01/12/23 Esther Connolly, RN [address] [place] [address] Clinical Advocate Family Medicine 09/27/24 11/08/24 Anastasia Rayo LPN [address] [address] 11/08/24 documented as of this encounter
--- OUTSIDE RECORDS SUMMARY | 2025-05-26 09:57 | XMS_ITS | Encounter Summary ---
Author Organization [facility] Address [address] [place] [address] Care Team Providers Care Supervisor Carpenters Name Role Phone Beni Nguyen MD Primary Care Provider [phone] Beni Nguyen MD Unavailable [phone] Esther Connolly RN Unavailable Anastasia Rayo LPN Unavailable Encounter Details Date Type Department Care Team (Late st Contact Info) Description 05/17/2023 Abstract [facility] [place] [facility] [address] [facility] 110 [place] [address] Beni Nguyen MD [address] [facility] 110 [place] [address] Social History Tobacco Use Types Packs/Day Years [...] PODIATRY 112 [facility] 120 [place] [address] Real Og, DPM 3006 [facility] 5 [place] [address] documented as of this encounter Visit Diagnoses Not on filedocumented in this encounter Care Teams Supervisor Carpenters Relationship Specialty Start Date End Date Beni Nguyen MD 112 [place] [facility] 110 [place] [address] PCP - General Internal Medicine 01/02/23 Beni Nguyen MD [address] [facility] 110 [place] [address] PCP - ACO Reach 01/12/23 Esther Connolly RN [address] [place], [place] [address] Clinical [facility] Family Medicine 09/27/24 11/08/24 Anastasia Rayo LPN [address] [address] 11/08/24 documented as of this encounter
--- OUTSIDE RECORDS SUMMARY | 2025-05-26 09:57 | XMS_ITS | Encounter Summary ---
Author Organization [facility] Address [address] [place] [address] Care Team Providers Care Pure Culture Operator Name Role Phone Beni Nguyen MD Primary Care Provider [phone] Beni Nguyen MD Unavailable [phone] Esther Connolly RN Unavailable Anastasia Rayo LPN Unavailable Encounter Details Date Type Department Care Team (Late st Contact Info) Description 05/11/2023 Abstract [facility] [place] [facility] [address] [facility] 110 [place] [address] Beni Nguyen MD 112 [facility] 110 [place] [address] Social History Tobacco Use Types Packs/Day Years [...] Upcoming Encounters Date Type Department Care Team ([facility] st Contact Info) Description 07/03/2025 2:40 PM EST Procedure Visit [facility] 112 [facility] 120 [place] [address] Real Og, DPM 3006 [facility] 5 [place] [address] documented as of this encounter Visit Diagnoses Not on filedocumented in this encounter Care Teams Pure Culture Operator Relationship Specialty Start Date End Date Beni Nguyen MD 112 [place] [facility] 110 [place] [address] PCP - General Internal Medicine 01/02/23 Beni Nguyen MD [address] [facility] 110 [place] [address] PCP - ACO Reach 01/12/23 Esther Connolly RN [address] [place], [place] [address] Clinical [facility] Family Medicine 09/27/24 11/08/24 Anastasia Rayo LPN [address] [address] 11/08/24 documented as of this encounter
--- OUTSIDE RECORDS SUMMARY | 2025-05-26 09:57 | XMS_ITS | Encounter Summary ---
Author Organization [facility] Address [address] [place] [address] Care Team Providers Care Principal Examiner Name Role Phone Beni Nguyen MD Primary Care Provider [phone] Beni Nguyen MD Unavailable [phone] Esther Connolly RN Unavailable Anastasia Rayo LPN Unavailable Encounter Details Date Type Department Care Team (Late st Contact Info) Description 07/07/[address] [facility] [address] [facility] 110 [place] [address] Beni Nguyen MD 112 [facility] 110 [place] [address] Social History Tobacco Use Types Packs/Day Years [...] Upcoming Encounters Date Type Department Care Team ([facility] st Contact Info) Description 07/03/2025 2:40 PM EST Procedure Visit [facility] 112 [facility] 120 [place] [address] Real Og, DPM 3006 [facility] 5 [place] [address] documented as of this encounter Visit Diagnoses Not on filedocumented in this encounter Care Teams Principal Examiner Relationship Specialty Start Date End Date Beni Nguyen MD 112 [place] [facility] 110 [place] [address] PCP - General Internal Medicine 01/02/23 Beni Nguyen MD [address] [facility] 110 [place] [address] PCP - ACO Reach 01/12/23 Esther Connolly RN [address] [place], [place] [address] [facility] 09/27/24 11/08/24 Anastasia Rayo LPN [address] [address] 11/08/24 documented as of this encounter
--- OUTSIDE RECORDS SUMMARY | 2025-05-26 09:57 | XMS_ITS | Encounter Summary ---
Author Organization [facility] Address [address] [place] [address] Care Team Providers Care Photogrammetric Engineer Name Role Phone Beni Nguyen MD Primary Care Provider [phone] Beni Nguyen MD Unavailable [phone] Esther Connolly RN Unavailable Anastasia Rayo LPN Unavailable Encounter Details Date Type Department Care Team (Late st Contact Info) Description 06/20/2023 Abstract [facility] [address] [facility] 110 [place] [address] Beni Nguyen MD 112 [facility] 110 [place] [address] Social History Tobacco Use Types Packs/Day Years [...] ([facility] st Contact Info) Description 07/03/2025 2:40 PM EST Procedure Visit [facility] 112 [facility] 120 [place] [address] Real Og, DPM 3[address] [facility] 5 [place] [address] documented as of this encounter Visit Diagnoses Not on filedocumented in this encounter Care Teams Photogrammetric Engineer Relationship Specialty Start Date End Date Beni Nguyen MD 112 [place] [facility] 110 [place] [address] PCP - General Internal Medicine 01/02/23 Beni Nguyen MD [address] [facility] 110 [place] [address] PCP - ACO Reach 01/12/23 Esther Connolly RN [address] [place], [place] [address] Clinical Advocate Family Medicine 09/27/24 11/08/24 Anastasia Rayo LPN [address] [address] 11/08/24 documented as of this encounter
--- OUTSIDE RECORDS SUMMARY | 2025-05-26 09:57 | XMS_ITS | Encounter Summary ---
Author Organization [facility] Address [address] [place] [address] Care Team Providers Care Booking Police Officer Name Role Phone Beni Nguyen MD Primary Care Provider [phone] Beni Nguyen MD Unavailable [phone] Esther Connolly RN Unavailable Anastasia Rayo LPN Unavailable Encounter Details Date Type Department Care Team (Late st Contact Info) Description 05/11/2023 Abstract [facility] [address] [facility] 110 [place] [address] Beni Nguyen MD 112 [facility] 110 [place] [address] Social History Tobacco Use Types Packs/Day Years [...] ([facility] st Contact Info) Description 07/03/2025 2:40 PM EST Procedure Visit [facility] 112 [facility] 120 [place] [address] Real Og, DPM 3006 [facility] 5 [place] [address] documented as of this encounter Visit Diagnoses Not on filedocumented in this encounter Care Teams Booking Police Officer Relationship Specialty Start Date End Date Beni Nguyen MD 112 [place] [facility] 110 [place] [address] PCP - General Internal Medicine 01/02/23 Beni Nguyen MD [address] [facility] 110 [place] [address] PCP - ACO Reach 01/12/23 Esther Connolly RN [address] [place], [place] [address] Clinical Advocate Family Medicine 09/27/24 11/08/24 Anastasia Rayo LPN [address] [address] 11/08/24 documented as of this encounter
--- OUTSIDE RECORDS SUMMARY | 2025-05-26 09:57 | XMS_ITS | Encounter Summary ---
Author Organization [facility] Address [address] [place] [address] Care Team Providers Care Heavy Duty Mechanic Name Role Phone Beni Nguyen MD Primary Care Provider [phone] Beni Nguyen MD Unavailable [phone] Esther Connolly RN Unavailable Anastasia Rayo LPN Unavailable Encounter Details Date Type Department Care Team (Late st Contact Info) Description 01/31/2024 Abstract [facility] [address] [facility] 110 [place] [address] Beni Nguyen MD 112 [facility] 110 [place] [address] Social History Tobacco Use Types Packs/Day Years [...] 10/05/2023 [facility] [place] [facility] - Occupational Stress Questionnaire Answer Date Recorded [...] Visit [facility] [address] [facility] 120 [place] [address] Real Og, DPM 3006 [facility] 5 [place] [address] documented as of this encounter Visit Diagnoses Not on filedocumented in this encounter Care Teams Heavy Duty Mechanic Relationship Specialty Start Date End Date Beni Nguyen MD [address] [place] 110 [place] [address] PCP - General Internal Medicine 01/02/23 Beni Nguyen MD [address] [facility] 110 [place] [address] PCP - ACO Reach 01/12/23 Esther Connolly, RN [address] [place] [address] Clinical Advocate Family Medicine 09/27/24 11/08/24 Anastasia Rayo LPN [address] [address] 11/08/24 documented as of this encounter
--- OUTSIDE RECORDS SUMMARY | 2025-05-26 09:57 | XMS_ITS | Encounter Summary ---
Author Organization [facility] Address [address] [place] [address] Care Team Providers Care Professional Architect Name Role Phone Beni Nguyen MD Primary Care Provider [phone] Beni Nguyen MD Unavailable [phone] Esther Connolly RN Unavailable [phone] Anastasia Rayo LPN Unavailable Encounter Details [...] [facility] st Contact Info) Description 07/03/2025 2:40 PM EST Procedure Visit [facility] 112 [facility] 120 [place] [address] Real Og DPM 3006 [facility] 5 [place] [address] documented as of this encounter Procedures Procedure Name Priority Date/Time Associated Diagnosis Comments MR KNEE LT WO CON 03/07/2024 4:3 0 AM EDT documented in this encounter Results * MR KNEE LT WO CON (03/07/2024 4:30 AM EDT) Anatomical Region Laterality Modality Other 03/07/2024 4:30 AM EDT Narrative 03/07/2024 4:33 AM EDT The [address] [address] Magnetic Resonance Report Signed Patient: ANKUR REILLY MR#: [id number] : 1945 Acct:[id number] Age/Sex: 78 / M ADM Date: 03/06/24 Loc: MRI Attending Dr: Priya Gao M.D. Ordering Physician: Priya Gao M.D. Date of Service: 03/06/24 Procedure(s): MR knee LT wo con Accession Number(s): [id number] cc: BENI NGUYEN ; Priya Gao M.D. [place] [id number] Patient Name: ANKUR REILLY MRN: [id number] date: 1945 Sex: M Assigned Patient Location: MRI Current Patient Location: Accession/Order Number: [id number] Exam Date: 03/06/2024 07:00 Report Date: 03/07/2024 [...] M.D. Signed By: 03/07/24432 DD/ 9 TD/TT: Certified Forklift Operator: Procedure Note Radiology, Radiologist, MD - 03/07/2024 [place] [address] Magnetic Resonance Report Signed Patient: ANKUR REILLY AMR#: [id number] : 1945cct:[id number] Age/Sex: 78 / MADM Date: 03/06/24 Loc: MRI Attending Dr: Priya Gao M.D. Ordering Physician: Priya Gao M.D. Date of Service: 03/06/24 Procedure(s): MR knee LT wo con Accession Number(s): [id number] cc: BENI NGUYEN ; Priya Gao M.D. The [place] [address] Patient Name: ANKUR REILLY MRN: [id number] date: 1945 Sex: M Assigned Patient Location: MRI Current Patient Location: Accession/Order Number: [id number] Exam Date: 03/06/2024 07:00 Report Date: 03/07/2024 04:30 At the request of: PRIYA GAO Procedure: MR knee LT wo con EXAMINATION: MR knee LT wo con HISTORY: left knee pain COMPARISON: No relevant comparison available. TECHNIQUE: A complete multi-planar MRI was performed. FINDINGS: MEDIAL COMPARTMENT MEDIAL MENISCUS: Mostly extruded from the joint space with increased W8letsgg throughout suggestive of intrasubstance degeneration. No convincing [...] Perez M.D. Signed By:03/07/24432 DD/ 9 TD/TT: Certified Forklift Operator: [place] External Data Provider [facility] Final Result documented in this encounter Visit Diagnoses Not on filedocumented in this encounter Care Teams Professional Architect Relationship Specialty Start Date End Date Beni Nguyen MD [address] [facility] 110 [place] [address] PCP - General Internal Medicine 01/02/23 Beni Nguyen MD [address] [facility] 110 [place] [address] PCP - ACO Reach 01/12/23 Esther Connolly, HEATHER [address] [place] [address] Clinical Advocate Family Medicine 09/27/24 11/08/24 Anastasia Rayo LPN [address] [address] 11/08/24 documented as of this encounter
--- OUTSIDE RECORDS SUMMARY | 2025-05-26 09:57 | XMS_ITS | Encounter Summary ---
Author Organization [facility] Address [address] [place] [address] Care Team Providers Care Printing Equipment Mechanic Apprentice Name Role Phone Beni Nguyen MD Primary Care Provider [phone] Beni Nguyen MD Unavailable [phone] Esther Connolly RN Unavailable [phone] Anastasia Rayo LPN Unavailable Encounter Details Date Type Department Care Team (Late st Contact Info) Description 05/11/2023 Abstract [facility] [place] [facility] [address] [facility] 110 [place] [address] Beni Nguyen MD 112 [facility] 110 [place] [address] Social History Tobacco Use Types Packs/Day Years [...] [facility] 120 [place] [address] Real Og, DPM 3006 [facility] 5 [place] [address] documented as of this encounter Visit Diagnoses Not on filedocumented in this encounter Care Teams Printing Equipment Mechanic Apprentice Relationship Specialty Start Date End Date Beni Nguyen MD 112 [place] [facility] 110 [place] [address] PCP - General Internal Medicine 01/02/23 Beni Nguyen MD [address] [facility] 110 [place] [address] PCP - ACO Reach 01/12/23 Esther Connolly RN [address] [place], [place] [address] Clinical Advocate Family Medicine 09/27/24 11/08/24 Anastasia Rayo LPN [address] [address] 11/08/24 documented as of this encounter
--- OUTSIDE RECORDS SUMMARY | 2025-05-26 09:57 | XMS_ITS | Encounter Summary ---
Author Organization [facility] Address [address] [place] [address] Care Team Providers Care Rolled Seat Trimmer Name Role Phone Beni Nguyen MD Primary Care Provider [phone] Beni Nguyen MD Unavailable [phone] Esther Connolly RN Unavailable Anastasia Rayo LPN Unavailable Encounter Details Date Type Department Care Team (Late st Contact Info) Description 02/13/2024 Abstract [facility] [place] [facility] [address] [facility] 110 [place] [address] Beni Nguyen MD 112 [facility] 110 [place] [address] Social History Tobacco Use Types Packs/Day Years [...] Score 0 10/05/2023 [facility] - Occupational Stress Questionnaire Answer Date [...] Visit [facility] [address] [facility] 120 [place] [address] Real Og, DPM 3006 [facility] 5 [place] [address] documented as of this encounter Visit Diagnoses Not on filedocumented in this encounter Care Teams Rolled Seat Trimmer Relationship Specialty Start Date End Date Beni Nguyen MD [address] [facility] 110 [place] [address] PCP - General Internal Medicine 01/02/23 Beni Nguyen MD [address] [facility] 110 [place] [address] PCP - ACO Reach 01/12/23 Esther Connolly, RN [address] [place] [address] Clinical Advocate Family Medicine 09/27/24 11/08/24 Anastasia Rayo LPN [address] [address] 11/08/24 documented as of this encounter
--- OUTSIDE RECORDS SUMMARY | 2025-05-26 09:57 | XMS_ITS | Encounter Summary ---
Author Organization [facility] Address [address] [place] [address] Care Team Providers Care Packaging Operator Name Role Phone Beni Nguyen MD Primary Care Provider [phone] Beni Nguyen MD Unavailable [phone] Esther Connolly RN Unavailable [phone] Anastasia Rayo LPN Unavailable Encounter Details [...] Recorded Patient Health Questionnaire-2 Score 0 10/05/2023 [facility] - [...] CI PODIATRY 112 [facility] 120 [place] [address] Real Og DPM 3006 [facility] 5 [place] [address] documented as of this encounter Procedures Procedure Name Priority Date/Time Associated Diagnosis Comments MR LUMBAR SPINE WO CON 12/22/2023 2:22 PM EDT documented in this encounter Results * MR LUMBAR SPINE WO CON (12/22/2023 2:22 PM EDT) Anatomical Region Laterality Modality Other 12/22/2023 2:22 PM EDT Narrative 12/22/2023 2:25 PM EDT The [address] [address] Magnetic Resonance Report Signed Patient: ANKUR REILLY MR#: [id number] : 1945 Acct:[id number] Age/Sex: 78 / M ADM Date: 12/22/23 Loc: RAD Attending Dr: Jadyn Wyman M.D. Ordering Physician: Jadyn Wyman M.D. Date of Service: 12/22/23 Procedure(s): MR lumbar spine wo con Accession Number(s): [id number] cc: BENI NGUYEN ; Jadyn Wyman M.D. [place] [address] Patient Name: ANKUR REILLY MRN: [facility]:[id number] date: 1945 Sex: M Assigned Patient Location: RAD Current Patient Location: RAD Accession/Order Number: [id number] Exam Date: 12/22/2023 12:40 Report Date: 12/22/2023 [...] as detailed above Electronically authenticated by: JORDAN RULTEDGE Date: 12/22/2023 14:22 Dictated By: Jordan Rutledge M.D. Signed By: 12/22/23 1425 DD/ 1422 TD/TT: School Office Assistant: Procedure Note Radiology, Radiologist, MD - 12/22/2023 [place] [address] Magnetic Resonance Report Signed Patient: ANKUR REILLY AMR#: [id number] : 1945cct:[id number] Age/Sex: 78 / MADM Date: 12/22/23 Loc: RAD Attending Dr: Jadyn Wyman M.D. Ordering Physician: Jadyn Wyman M.D. Date of Service: 12/22/23 Procedure(s): MR lumbar spine wo con Accession Number(s): [id number] cc: BENI NGUYEN ; Jadyn Wyman M.D. The [place] [id number] Patient Name: ANKUR REILLY MRN: [id number] date: 1945 Sex: M Assigned Patient Location: RAD Current Patient Location: RAD Accession/Order Number: [id number] Exam Date: 12/22/2023 12:40 Report Date: 12/22/2023 [...] M.D. Signed By:12/22/23 1425 DD/ 142 TD/TT: School Office Assistant: us Generic External Data Provider [facility] Final Result documented in this encounter Visit Diagnoses Not on filedocumented in this encounter Care Teams Packaging Operator Relationship Specialty Start Date End Date Beni Nguyen MD [address] [place] [address] [address] PCP - General Internal Medicine 01/02/23 Beni Nguyen MD [address] [place] [address] [address] PCP - ACO Reach 01/12/23 Esther Connolly, HEATHER [address] [facility] [address] Clinical Advocate Family Medicine 09/27/24 11/08/24 Anastasia Rayo LPN [address] [place] [address] [address] 11/08/24 documented as of this encounter
--- OUTSIDE RECORDS SUMMARY | 2025-05-26 09:57 | XMS_ITS | Encounter Summary ---
Author Organization [facility] Address [address] [place] [address] Care Team Providers Care Gas Mask Inspector Name Role Phone Beni Nguyen MD Primary Care Provider [phone] Beni Nguyen MD Unavailable [phone] Esther Connolly RN Unavailable Anastasia Rayo LPN Unavailable Encounter Details Date Type Department Care Team (Late st Contact Info) Description 05/23/2023 Abstract [facility] [place] [facility] [address] [facility] 110 [place] [address] Beni Nguyen MD 112 [facility] 110 [place] [address] Social History Tobacco Use Types Packs/Day Years [...] Upcoming Encounters Date Type Department Care Team ([facility] st Contact Info) Description 07/03/2025 2:40 PM EST Procedure Visit [facility] 112 [facility] 120 [place] [address] Real Og, DPM 3006 [facility] 5 [place] [address] documented as of this encounter Visit Diagnoses Not on filedocumented in this encounter Care Teams Gas Mask Inspector Relationship Specialty Start Date End Date Beni Nguyen MD 112 [place] [facility] 110 [place] [address] PCP - General Internal Medicine 01/02/23 Beni Nguyen MD [address] [facility] 110 [place] [address] PCP - ACO Reach 01/12/23 Esther Connolly RN [address] [place], [place] [address] Clinical Advocate Family Medicine 09/27/24 11/08/24 Anastasia Rayo LPN [address] [address] 11/08/24 documented as of this encounter
--- OUTSIDE RECORDS SUMMARY | 2025-05-26 09:57 | XMS_ITS | Encounter Summary ---
Author Organization [facility] Address [address] [place] [address] Care Team Providers Care Office 365 Consultant Name Role Phone Beni Nguyen MD Primary Care Provider [phone] Beni Nguyen MD Unavailable [phone] Esther Connolly RN Unavailable [phone] Anastasia Rayo LPN Unavailable Encounter Details Date Type Department Care Team (Late st Contact Info) Description 05/11/2023 Abstract [facility] [place] [facility] [address] [facility] 110 [place] [address] Beni Nguyen MD 112 [facility] 110 [place] [address] Social History Tobacco Use Types Packs/Day Years [...] and heating? Not hard at all 03/17/2023 [facility] [...] Upcoming Encounters Date Type Department Care Team ([facility] st Contact Info) Description 07/03/2025 2:40 PM EST Procedure Visit [facility] 112 [facility] 120 [place] [address] Real Og, DPM 3006 [facility] 5 [place] [address] documented as of this encounter Visit Diagnoses Not on filedocumented in this encounter Care Teams Office 365 Consultant Relationship Specialty Start Date End Date Beni Nguyen MD 112 [place] [facility] 110 [place] [address] PCP - General Internal Medicine 01/02/23 Beni Nguyen MD [address] [facility] 110 [place] [address] PCP - ACO Reach 01/12/23 Esther Connolly RN [address] [place], [place] [address] Clinical Advocate Family Medicine 09/27/24 11/08/24 Anastasia Rayo LPN [address] [address] 11/08/24 documented as of this encounter
--- OUTSIDE RECORDS SUMMARY | 2025-05-26 09:57 | XMS_ITS | Encounter Summary ---
Author Organization [facility] Address [address] [place] [address] Care Team Providers Care Medicine And Health Service Manager Name Role Phone Beni Nguyen MD Primary Care Provider [phone] Beni Nguyen MD Unavailable [phone] Esther Connolly RN Unavailable Anastasia Rayo LPN Unavailable Encounter Details Date Type Department Care Team (Late st Contact Info) Description 01/31/2024 Abstract [facility] [place] [facility] [address] [email or web address] 110 [place] [address] Beni Nguyen MD 112 [facility] 110 [place] [address] Social History Tobacco Use Types Packs/Day Years [...] Score 0 10/05/2023 [facility] - Occupational Stress Questionnaire Answer Date [...] Visit [facility] [address] [email or web address] 120 [place] [address] Real Og, DPM 3006 [facility] 5 [place] [address] documented as of this encounter Visit Diagnoses Not on filedocumented in this encounter Care Teams Medicine And Health Service Manager Relationship Specialty Start Date End Date Beni Nguyen MD [address] [facility] 110 [place] [address] PCP - General Internal Medicine 01/02/23 Beni Nguyen MD [address] [facility] 110 [place] [address] PCP - ACO Reach 01/12/23 Esther Connolly, RN [address] [place] [address] Clinical Advocate Family Medicine 09/27/24 11/08/24 Anastasai Rayo LPN [address] [address] 11/08/24 documented as of this encounter
--- OUTSIDE RECORDS SUMMARY | 2025-05-26 09:57 | XMS_ITS | Encounter Summary ---
Author Organization [facility] Address [address] [place] [address] Care Team Providers Care Lubrication Servicer Name Role Phone Beni Nguyen MD Primary Care Provider [phone] Beni Nguyen MD Unavailable [phone] Esther Connolly RN Unavailable [phone] Anastasia Rayo LPN Unavailable Encounter Details Date Type Department Care Team (Late st Contact Info) Description 05/11/2023 Abstract [facility] [place] [facility] [address] [facility] 110 [place] [address] Beni Nguyen MD 112 [facility] 110 [place] [address] Social History Tobacco Use Types Packs/Day Years [...] PODIATRY 112 [facility] 120 [place] [address] Real Og, DPM 3006 [facility] 5 [place] [address] documented as of this encounter Visit Diagnoses Not on filedocumented in this encounter Care Teams Lubrication Servicer Relationship Specialty Start Date End Date Beni Nguyen MD 112 [facility] 110 [place] [address] PCP - General Internal Medicine 01/02/23 Beni Nguyen MD [address] [facility] 110 [place] [address] PCP - ACO Reach 01/12/23 Esther Connolly RN [address] [place], [place] [address] Clinical Advocate Family Medicine 09/27/24 11/08/24 Anastasia Rayo LPN [address] [address] 11/08/24 documented as of this encounter
--- OUTSIDE RECORDS SUMMARY | 2025-05-26 09:57 | XMS_ITS | Encounter Summary ---
Author Organization [facility] Address [address] [place] [address] Care Team Providers Care Ticket Machine Operator Name Role Phone Beni Nguyen MD Primary Care Provider [phone] Beni Nguyen MD Unavailable [phone] Esther Connolly RN Unavailable [phone] Anastasia Rayo LPN Unavailable Encounter Details Date Type Department Care Team (Late st Contact Info) Description 05/11/2023 Orders Only [facility] [address] [facility] 110 [place] [id number] A, Unknown Practice [address] [place] [address] Social History Tobacco Use Types [...] CI PODIATRY 112 [facility] 120 [place] [address] Real Og DPM 3006 [facility] [place] 5 [place] [address] documented as of this encounter Procedures Procedure [...] on filedocumented in this encounter Care Teams Ticket Machine Operator Relationship Specialty Start Date End Date Beni Nguyen MD 112 [facility] 110 [place] [address] PCP - General Internal Medicine 01/02/23 Beni Nguyen MD [address] [facility] 110 [place] [address] PCP - ACO Reach 01/12/23 Esther Connolly, RN [address] [place] [address] Clinical [facility]ocate Family Medicine 09/27/24 11/08/24 Anastasia Rayo LPN [address] [facility] 110 [place] [address] 11/08/24 documented as of this encounter
--- OUTSIDE RECORDS SUMMARY | 2025-05-26 09:57 | XMS_ITS | Encounter Summary ---
Author Organization [facility] Address [address] [place] [address] Care Team Providers Care Forest Products Gatherer Name Role Phone Beni Nguyen MD Primary Care Provider [phone] Beni Nguyen MD Unavailable [phone] Esther Connolly RN Unavailable [phone] Anastasia Rayo LPN Unavailable Encounter Details Date Type Department Care Team (Late st Contact Info) Description 07/18/2023 Abstract [facility] [address] [facility] 110 [place] [address] Beni Nguyen MD 112 [facility] 110 [place] [address] Social History Tobacco Use Types Packs/Day Years [...] and heating? Not hard at all 03/17/2023 [facility] [...] CI PODIATRY 112 [facility] 120 [place] [address] eRal Og, DPM 3006 [facility] 5 [place] [address] documented as of this encounter Visit Diagnoses Not on filedocumented in this encounter Care Teams Forest Products Gatherer Relationship Specialty Start Date End Date Beni Nguyen MD 112 [facility] 110 [place] [address] PCP - General Internal Medicine 01/02/23 Beni Nguyne MD [address] [facility] 110 [place] [address] PCP - ACO Reach 01/12/23 Esther Connolly RN [address] [place], [place] [address] Clinical Advocate Family Medicine 09/27/24 11/08/24 Anastasia Rayo LPN [address] [address] 11/08/24 documented as of this encounter
--- OUTSIDE RECORDS SUMMARY | 2025-05-26 09:57 | XMS_ITS | Encounter Summary ---
Author Organization [facility] Address [address] [place] [address] Care Team Providers Care Ems Driver Name Role Phone Beni Nguyen MD Primary Care Provider Beni Nguyen MD Unavailable [phone] Esther Connolly RN Unavailable Anastasia Rayo LPN Unavailable Encounter Details Date Type Department Care Team (Late st Contact Info) Description 05/23/2023 Abstract [facility] [address] [facility] 110 [place] [address] Beni Nguyen MD 112 [facility] 110 [place] [address] Social History Tobacco Use Types Packs/Day Years [...] and heating? Not hard at all 03/17/2023 [facility] - [...] [facility] st Contact Info) Description 07/03/2025 2:40 PM EST Procedure Visit [facility] CI PODIATRY 112 [facility] 120 [place] [address] Real Og, DPM 3006 [facility] 5 [place] [address] documented as of this encounter Visit Diagnoses Not on filedocumented in this encounter Care Teams Ems Driver Relationship Specialty Start Date End Date Beni Nguyen MD 112 [facility] 110 [place] [address] PCP - General Internal Medicine 01/02/23 Beni Nguyen MD [address] [facility] 110 [place] [address] PCP - ACO Reach 01/12/23 Esther Connolly RN [address] [place], [place] [address] Clinical Advocate Family Medicine 09/27/24 11/08/24 Anastasia Rayo LPN [address] [address] 11/08/24 documented as of this encounter
--- OUTSIDE RECORDS SUMMARY | 2025-05-26 09:57 | XMS_ITS | Encounter Summary ---
Author Organization [facility] Address [address] [place] [address] Care Team Providers Care Electronic Scale Subassembler Name Role Phone Beni Nguyen MD Primary Care Provider Beni Nguyen MD Unavailable [phone] Esther Connolly RN Unavailable Anastasia Rayo LPN Unavailable Encounter Details Date Type Department Care Team (Late st Contact Info) Description 10/31/2024 Abstract [facility] [address] [facility] 110 [place] [address] Beni Nguyen MD 112 [facility] 110 [place] [address] Social History Tobacco Use Types Packs/Day Years [...] Recorded Patient Health Questionnaire-2 Score 0 10/29/2024 [facility] - [...] EST Procedure Visit [facility] CI PODIATRY 112 [facility] 120 [place] [address] Real Og DPM 3006 [facility] 5 [place] [address] documented as of this encounter Visit Diagnoses Not on filedocumented in this encounter Care Teams Electronic Scale Subassembler Relationship Specialty Start Date End Date Beni Nguyen MD 112 [facility] 110 [place] [address] PCP - General Internal Medicine 01/02/23 Beni Nguyen MD 112 [facility] 110 [place] [address] PCP - ACO Reach 01/12/23 Esther Connolly, HEATHER [address] [place], [place] [address] Clinical Advocate Family Medicine 09/27/24 11/08/24 Anastasia Rayo LPN 112 [place] 110 [place] [address] 11/08/24 documented as of this encounter
--- OUTSIDE RECORDS SUMMARY | 2025-05-26 09:57 | XMS_ITS ---
Author Organization [facility] Address [address] [place] [address] Care Team Providers Care Panel Maker Name Role Phone Beni Nguyen MD Primary Care Provider [phone] Beni Nguyen MD Unavailable [phone] Anastasia Rayo LPN Unavailable Chronic Care Management (CCM) Status:Enrolled (Active) Start date:11/19/2016 Enrollment date:11/19/2016 Overview 06/21/23, 9:37 AM - Salma Monday, ALETHA- Patient gives verbal consent to be enrolled in CCM Program and understands there could be a bill for this service. Case Team Name Relationship Phone Anastasia Rayo LPN(Responsible Staff) [phone] Continued Care and Services Coordination
--- OUTSIDE RECORDS SUMMARY | 2025-05-26 09:57 | XMS_ITS | Encounter Summary ---
Author Organization [facility] Address [address] [place] [address] Care Team Providers Care Meat Cutter Name Role Phone Beni Nguyen MD Primary Care Provider [phone] Beni Nguyen MD Unavailable [phone] Esther Connolly RN Unavailable [phone] Anastasia Rayo LPN Unavailable Encounter Details Date Type Department Care Team (Late st Contact Info) Description 05/23/2023 Abstract [facility] [address] [facility] 110 [place] [address] Beni Nguyen MD 112 [facility] 110 [place] [address] Social History Tobacco Use Types Packs/Day Years [...] Upcoming Encounters Date Type Department Care Team ([facility] st Contact Info) Description 07/03/2025 2:40 PM EST Procedure Visit [facility] CI PODIATRY 112 [facility] 120 [place] [address] Real Og, DPM 3006 [facility] 5 [place] [address] documented as of this encounter Visit Diagnoses Not on filedocumented in this encounter Care Teams Meat Cutter Relationship Specialty Start Date End Date Beni Nguyen MD 112 [place] 110 [place] [address] PCP - General Internal Medicine 01/02/23 Beni Nguyen MD [address] [facility] 110 [place] [address] PCP - ACO Reach 01/12/23 Esther Connolly RN [address] [place], [place] [address] Clinical Advocate Family Medicine 09/27/24 11/08/24 Anastasia Rayo LPN [address] [address] 11/08/24 documented as of this encounter
--- OUTSIDE RECORDS SUMMARY | 2025-05-26 09:57 | XMS_ITS | Encounter Summary ---
Author Organization [facility] Address [address] [place] [address] Care Team Providers Care Rug Clipper Name Role Phone Beni Nguyen MD Primary Care Provider [phone] Beni Nguyen MD Unavailable [phone] Esther Connolly RN Unavailable Anastasia Rayo LPN Unavailable Encounter Details Date Type Department Care Team (Late st Contact Info) Description 07/04/2023 Abstract [facility] [address] [facility] 110 [place] [address] Beni Nguyen MD 112 [facility] 110 [place] [address] Social History Tobacco Use Types Packs/Day Years [...] Upcoming Encounters Date Type Department Care Team ([facility] st Contact Info) Description 07/03/2025 2:40 PM EST Procedure Visit [facility] CI PODIATRY 112 [facility] 120 [place] [address] Real Og, DPM 3006 [facility] 5 [place] [address] documented as of this encounter Visit Diagnoses Not on filedocumented in this encounter Care Teams Rug Clipper Relationship Specialty Start Date End Date Beni Nguyen MD 112 [facility] 110 [place] [address] PCP - General Internal Medicine 01/02/23 Beni Nguyen MD [address] [facility] 110 [place] [address] PCP - ACO Reach 01/12/23 Esther Connolly RN [address] [place], [place] [address] Clinical Advocate Family Medicine 09/27/24 11/08/24 Anastasia Rayo LPN [address] [address] 11/08/24 documented as of this encounter
--- OUTSIDE RECORDS SUMMARY | 2025-05-26 09:57 | XMS_ITS | Encounter Summary ---
Author Organization [facility] Address [address] [place] [address] Care Team Providers Care Solutions Engineer Name Role Phone Beni Nguyen MD Primary Care Provider [phone] Beni Nguyen MD Unavailable [phone] Esther Connolly RN Unavailable Anastasia Rayo LPN Unavailable Encounter Details Date Type Department Care Team (Late st Contact Info) Description 11/05/2024 Abstract [facility] [address] [facility] 110 [place] [address] Beni Nguyen MD 112 [facility] 110 [place] [address] Social History Tobacco Use Types Packs/Day Years [...] Recorded Patient Health Questionnaire-2 Score 0 10/29/2024 [facility] Occupat ional [...] PODIATRY 112 [facility] 120 [place] [address] Real Og DPM 3006 [facility] 5 [place] [address] documented as of this encounter Visit Diagnoses Not on filedocumented in this encounter Care Teams Solutions Engineer Relationship Specialty Start Date End Date Beni Nguyen MD 112 [facility] 110 [place] [address] PCP - General Internal Medicine 01/02/23 Beni Nguyen MD 112 [facility] 110 [place] [address] PCP - ACO Reach 01/12/23 Esther Connolly, HEATHER [address] [place], [place] [address] Clinical Advocate Family Medicine 09/27/24 11/08/24 Anastasia Rayo LPN 112 [facility] 110 [place] [address] 11/08/24 documented as of this encounter
--- OUTSIDE RECORDS SUMMARY | 2025-05-26 09:57 | XMS_ITS | Encounter Summary ---
Author Organization [facility] Address [address] [place] [address] Care Team Providers Care Contract Technical Writer Name Role Phone Beni Nguyen MD Primary Care Provider [phone] Beni Nguyen MD Unavailable [phone] Esther Connolly RN Unavailable Anastasia Rayo LPN Unavailable Encounter Details Date Type Department Care Team (Late st Contact Info) Description 10/31/2024 Abstract [facility] [address] [facility] 110 [place] [address] Beni Nguyen MD 112 [facility] 110 [place] [address] Social History Tobacco Use Types Packs/Day Years [...] Recorded Patient Health Questionnaire-2 Score 0 10/29/2024 [facility]at ional [...] ([facility] st Contact Info) Description 07/03/2025 2:40 PM EST Procedure Visit [facility] CI PODIATRY 112 [facility] 120 [place] [address] Real Og DPM 3006 [facility] 5 [place] [address] documented as of this encounter Visit Diagnoses Not on filedocumented in this encounter Care Teams Contract Technical Writer Relationship Specialty Start Date End Date Beni Nguyen MD 112 [facility] 110 [place] [address] PCP - General Internal Medicine 01/02/23 Beni Nguyen MD 112 [facility] 110 [place] [address] PCP - ACO Reach 01/12/23 Esther Connolly, HEATHER [address] [place], [place] [address] Clinical Advocate Family Medicine 09/27/24 11/08/24 Anastasia Rayo LPN 112 [place] [facility] 110 [place] [address] 11/08/24 documented as of this encounter
--- OUTSIDE RECORDS SUMMARY | 2025-05-26 09:57 | XMS_ITS | Encounter Summary ---
Author Organization [facility] Address [address] [place] [address] Care Team Providers Care Stenotypist Name Role Phone Beni Nguyen MD Primary Care Provider [phone] Beni Nguyen MD Unavailable [phone] Esther Connolly RN Unavailable Anastasia Rayo LPN Unavailable Encounter Details Date Type Department Care Team (Late st Contact Info) Description 05/23/2023 Abstract [facility] [address] [facility] 110 [place] [address] Beni Nguyen MD 112 [facility] 110 [place] [address] Social History Tobacco Use Types Packs/Day Years [...] and heating? Not hard at all 03/17/2023 [facility] - [...] PODIATRY 112 [facility] 120 [place] [address] Real Og, DPM 3006 [facility] 5 [place] [address] documented as of this encounter Visit Diagnoses Not on filedocumented in this encounter Care Teams Stenotypist Relationship Specialty Start Date End Date Beni Nguyen MD 112 [facility] 110 [place] [address] PCP - General Internal Medicine 01/02/23 Beni Ngueyn MD [address] [facility] 110 [place] [address] PCP - ACO Reach 01/12/23 Esther Connolly RN [address] [place], [place] [address] Clinical Advocate Family Medicine 09/27/24 11/08/24 Anastasia Rayo LPN [address] [address] 11/08/24 documented as of this encounter
--- OUTSIDE RECORDS SUMMARY | 2025-05-26 09:57 | XMS_ITS | Encounter Summary ---
Author Organization [facility] Address [address] [place] [address] Care Team Providers Care Activities Leader Name Role Phone Beni Nguyen MD Primary Care Provider [phone] Beni Nguyen MD Unavailable [phone] Esther oCnnolly RN Unavailable [phone] Anastasia Rayo LPN Unavailable Encounter Details Date Type Department Care Team (Late st Contact Info) Description 05/11/2023 Abstract [facility] [address] [facility] 110 [place] [address] Beni Nguyen MD 112 [facility] 110 [place] [address] Social History Tobacco Use Types Packs/Day Years [...] heating? Not hard at all 03/17/2023 [facility] of Occupat ional [...] CI PODIATRY 112 [facility] 120 [place] [address] Real Og, DPM 3006 [facility] 5 [place] [address] documented as of this encounter Visit Diagnoses Not on filedocumented in this encounter Care Teams Activities Leader Relationship Specialty Start Date End Date Beni Nguyen MD 112 [facility] 110 [place] [address] PCP - General Internal Medicine 01/02/23 Beni Nguyen MD [address] [facility] 110 [place] [address] PCP - ACO Reach 01/12/23 Esther Connolly RN [address] [place], [place] [address] Clinical Advocate Family Medicine 09/27/24 11/08/24 Anastasia Rayo LPN [address] [address] 11/08/24 documented as of this encounter
--- OUTSIDE RECORDS SUMMARY | 2025-05-26 09:57 | XMS_ITS | Encounter Summary ---
Author Organization [facility] Address [address] [place] [address] Care Team Providers Care Inventory Control Planner Name Role Phone Beni Nguyen MD Primary Care Provider Beni Nguyen MD Unavailable [phone] Esther Connolly RN Unavailable Anastasia Rayo LPN Unavailable Encounter Details Date Type Department Care Team (Late st Contact Info) Description 05/11/2023 Abstract [facility] [address] [facility] 110 [place] [address] Beni Nguyen MD 112 [facility] 110 [place] [address] Social History Tobacco Use Types Packs/Day Years [...] and heating? Not hard at all 03/17/2023 [facility]at ional [...] [facility] 120 [place] [address] Real Og, DPM 3006 [facility] 5 [place] [address] documented as of this encounter Visit Diagnoses Not on filedocumented in this encounter Care Teams Inventory Control Planner Relationship Specialty Start Date End Date Beni Nguyen MD 112 [place] [facility] 110 [place] [address] PCP - General Internal Medicine 01/02/23 Beni Nguyen MD [address] [facility] 110 [place] [address] PCP - ACO Reach 01/12/23 Esther Connolly RN [address] [place], [place] [address] Clinical Advocate Family Medicine 09/27/24 11/08/24 Anastasia Rayo LPN [address] [address] 11/08/24 documented as of this encounter
--- OUTSIDE RECORDS SUMMARY | 2025-05-26 09:57 | XMS_ITS | Encounter Summary ---
Author Organization [facility] Address [address] [place] [address] Care Team Providers Care Licensed And Certified Midwife Name Role Phone Beni Nguyen MD Primary Care Provider [phone] Beni Nguyen MD Unavailable [phone] Esther Connolly RN Unavailable [phone] Anastasia Rayo LPN Unavailable Encounter Details Date Type Department Care Team (Late st Contact Info) Description 07/18/2023 Abstract [facility] [address] [facility] 110 [place] [address] Beni Nguyen MD 112 [facility] 110 [place] [address] Social History Tobacco Use Types Packs/Day Years [...] Upcoming Encounters Date Type Department Care Team ([facility] st Contact Info) Description 07/03/2025 2:40 PM EST Procedure Visit [facility] CI PODIATRY 112 [facility] 120 [place] [address] Real Og, DPM 3006 [facility] 5 [place] [address] documented as of this encounter Visit Diagnoses Not on filedocumented in this encounter Care Teams Licensed And Certified Midwife Relationship Specialty Start Date End Date Beni Nguyen MD 112 [facility] 110 [place] [address] PCP - General Internal Medicine 01/02/23 Beni Nguyen MD [address] [facility] 110 [place] [address] PCP - ACO Reach 01/12/23 Esther Connolly RN [address] [place], [place] [address] Clinical Advocate Family Medicine 09/27/24 11/08/24 Anastasia Rayo LPN [address] [address] 11/08/24 documented as of this encounter
--- OUTSIDE RECORDS SUMMARY | 2025-05-26 09:57 | XMS_ITS | Encounter Summary ---
Author Organization [facility] Address [address] [place] [address] Care Team Providers Care Company Truck Driver Name Role Phone Beni Nguyen MD Primary Care Provider [phone] Beni Nguyen MD Unavailable [phone] Esther Connolly RN Unavailable [phone] Anastasia Rayo LPN Unavailable Encounter Details Date Type Department Care Team (Late st Contact Info) Description 06/12/2023 Abstract [facility] [address] [facility] 110 [place] [address] Beni Nguyen MD 112 [facility] 110 [place] [address] Social History Tobacco Use Types Packs/Day Years [...] heating? Not hard at all 03/17/2023 [facility] [...] ([facility] st Contact Info) Description 07/03/2025 2:40 PM EST Procedure Visit [facility] CI PODIATRY 112 [facility] 120 [place] [address] Real Og, DPM 3006 [facility] 5 [place] [address] documented as of this encounter Visit Diagnoses Not on filedocumented in this encounter Care Teams Company Truck Driver Relationship Specialty Start Date End Date Beni Nguyen MD 112 [place] [facility] 110 [place] [address] PCP - General Internal Medicine 01/02/23 Beni Nguyen MD [address] [facility] 110 [place] [address] PCP - ACO Reach 01/12/23 Esther Connolly RN [address] [place], [place] [address] Clinical [facility] Family [facility] 09/27/24 11/08/24 Anastasia Rayo LPN [address] [address] 11/08/24 documented as of this encounter
--- OUTSIDE RECORDS SUMMARY | 2025-05-26 09:57 | XMS_ITS | Encounter Summary ---
Author Organization [facility] Address [address] [place] [address] Care Team Providers Care Frame Runner Name Role Phone Beni Nguyen MD Primary Care Provider [phone] Beni Nguyen MD Unavailable [phone] Esther Connolly RN Unavailable Anastasia Rayo LPN Unavailable Encounter Details Date Type Department Care Team (Late st Contact Info) Description 06/27/2023 Abstract [facility] [address] [facility] 110 [place] [address] Beni Nguyen MD 112 [facility] 110 [place] [address] Social History Tobacco Use Types Packs/Day Years [...] Upcoming Encounters Date Type Department Care Team ([facility] st Contact Info) Description 07/03/2025 2:40 PM EST Procedure Visit [facility] CI PODIATRY 112 [facility] 120 [place] [address] Real Og, DPM 3006 [facility] 5 [place] [address] documented as of this encounter Visit Diagnoses Not on filedocumented in this encounter Care Teams Frame Runner Relationship Specialty Start Date End Date Beni Nguyen MD [address] [facility] 110 [place] [address] PCP - General Internal Medicine 01/02/23 Beni Nguyen MD [address] [facility] 110 [place] [address] PCP - ACO Reach 01/12/23 Esther Connolly RN [address] [place], [place] [address] [facility] 09/27/24 11/08/24 Anastasia Rayo LPN [address] [address] 11/08/24 documented as of this encounter
--- OUTSIDE RECORDS SUMMARY | 2025-05-26 09:57 | XMS_ITS | Encounter Summary ---
Author Organization [facility] Address [address] [place] [address] Care Team Providers Care Child Welfare Director Name Role Phone Beni Nguyen MD Primary Care Provider [phone] Beni Nguyen MD Unavailable [phone] Esther Connolly RN Unavailable Anastasia Rayo LPN Unavailable Encounter Details Date Type Department Care Team (Late st Contact Info) Description 05/24/[address] [facility] [address] [facility] 110 [place] [address] Beni Nguyen MD 112 [facility] 110 [place] [address] Social History Tobacco Use Types Packs/Day Years [...] PODIATRY 112 [facility] 120 [place] [address] Real Og, DPM 3006 [facility] 5 [place] [address] documented as of this encounter Visit Diagnoses Not on filedocumented in this encounter Care Teams Child Welfare Director Relationship Specialty Start Date End Date Beni Nguyen MD 112 [facility] 110 [place] [address] PCP - General Internal Medicine 01/02/23 Beni Nguyen MD [address] [facility] 110 [place] [address] PCP - ACO Reach 01/12/23 Esther Connolly RN [address] [place], [place] [address] Clinical [facility] Family [facility] 09/27/24 11/08/24 Anastasia Rayo LPN [address] [address] 11/08/24 documented as of this encounter
--- OUTSIDE RECORDS SUMMARY | 2025-05-26 09:58 | XMS_ITS | Encounter Summary ---
Author Organization [facility] Address [address] [place] [address] Care Team Providers Care Field Automobile Adjuster Name Role Phone Beni Nguyen MD Primary Care Provider [phone] Beni Nguyen MD Unavailable [phone] Esther Connolly RN Unavailable [phone] Anastasia Rayo LPN Unavailable Encounter Details Date Type Department Care Team (Late st Contact Info) Description 07/08/2024 Abstract [facility] [address] [facility] 110 [place] [address] Beni Nguyen MD 112 [facility] 110 [place] [address] Social History Tobacco Use Types Packs/Day Years [...] CI PODIATRY 112 [facility] 120 [place] [address] Real Og DPM 3006 [facility] 5 [place] [address] documented as of this encounter Visit Diagnoses Not on filedocumented in this encounter Care Teams Field Automobile Adjuster Relationship Specialty Start Date End Date Beni Nguyen MD 112 [facility] 110 [place] [address] PCP - General Internal Medicine 01/02/23 Beni Nguyen MD 112 [facility] 110 [place] [address] PCP - ACO Reach 01/12/23 Esther Connolly, HEATHER [address] [place], [place] [address] Clinical Advocate Family Medicine 09/27/24 11/08/24 Anastasia Rayo LPN 112 [place] [facility] 110 [place] [address] 11/08/24 documented as of this encounter
--- OUTSIDE RECORDS SUMMARY | 2025-05-26 09:58 | XMS_ITS | Encounter Summary ---
Author Organization [facility] Address [address] [place] [address] Care Team Providers Care Shell Reprint Operator Name Role Phone Beni Nguyen MD Primary Care Provider [phone] Beni Nguyen MD Unavailable [phone] Esther Connolly RN Unavailable [phone] Anastasia Rayo LPN Unavailable Encounter Details Date Type Department Care Team (Late st Contact Info) Description 08/04/2023 Abstract [facility] [address] [facility] 110 [place] [address] Beni Nguyen MD 112 [facility] 110 [place] [address] Social History Tobacco Use Types Packs/Day Years [...] and heating? Not hard at all 03/17/2023 [facility] - [facility] [...] Encounters Date Type Department Care Team ([facility] st Contact Info) Description 07/03/2025 2:40 PM EST Procedure Visit [facility] PODIATRY 112 [facility] 120 [place] [address] Real Og, DPM 3006 [facility] 5 [place] [address] documented as of this encounter Visit Diagnoses Not on filedocumented in this encounter Care Teams Shell Reprint Operator Relationship Specialty Start Date End Date Beni Nguyen MD 112 [facility] 110 [place] [address] PCP - General Internal Medicine 01/02/23 Beni Nguyen MD [address] [facility] 110 [place] [address] PCP - ACO Reach 01/12/23 Esther Connolly RN [address] [place], [place] [phone] Clinical [facility] Family [facility] 09/27/24 11/08/24 Anastasia Rayo LPN [address] [address] 11/08/24 documented as of this encounter
--- OUTSIDE RECORDS SUMMARY | 2025-05-26 09:58 | XMS_ITS | Encounter Summary ---
Author Organization [facility] Address [address] [place] [address] Care Team Providers Care Sewage Disposal Worker Name Role Phone Beni Nguyen MD Primary Care Provider [phone] Beni Nguyen MD Unavailable [phone] Esther Connolly RN Unavailable [phone] Anastasia Rayo LPN Unavailable Encounter Details Date Type Department Care Team (Late st Contact Info) Description 07/17/2024 Abstract [facility] [address] [facility] 110 [place] [address] Beni Nguyen MD 112 [facility] 110 [place] [address] Social History Tobacco Use Types Packs/Day Years [...] ([facility] st Contact Info) Description 07/03/2025 2:40 PM EST Procedure Visit [facility] PODIATRY 112 [facility] 120 [place] [address] Real Og DPM 3006 [facility] 5 [place] [address] documented as of this encounter Visit Diagnoses Not on filedocumented in this encounter Care Teams Sewage Disposal Worker Relationship Specialty Start Date End Date Beni Nguyen MD 112 [facility] 110 [place] [address] PCP - General Internal Medicine 01/02/23 Beni Nguyen MD 112 [facility] 110 [place] [address] PCP - ACO Reach 01/12/23 Esther Connolly, HEATHER [address] [place], [place] [address] Clinical [facility] Family [facility] 09/27/24 11/08/24 Anastasia Rayo LPN 112 [facility] 110 [place] [address] 11/08/24 documented as of this encounter
--- OUTSIDE RECORDS SUMMARY | 2025-05-26 09:58 | XMS_ITS | Encounter Summary ---
Author Organization [facility] Address [address] [place] [address] Care Team Providers Care Academic Program Specialist Name Role Phone Beni Nguyen MD Primary Care Provider [phone] Beni Nguyen MD Unavailable [phone] Esther Connolly RN Unavailable [phone] Anastasia Rayo LPN Unavailable Encounter Details Date Type Department Care Team (Late st Contact Info) Description 07/04/2024 Abstract [facility] [address] [facility] 110 [place] [address] Beni Nguyen MD 112 [facility] 110 [place] [address] Social History Tobacco Use Types Packs/Day Years [...] PODIATRY 112 [facility] 120 [place] [address] Real Og DPM 3006 [facility] 5 [place] [address] documented as of this encounter Visit Diagnoses Not on filedocumented in this encounter Care Teams Academic Program Specialist Relationship Specialty Start Date End Date Beni Nguyen MD 112 [facility] 110 [place] [address] PCP - General Internal Medicine 01/02/23 Beni Nguyen MD 112 [facility] 110 [place] [address] PCP - ACO Reach 01/12/23 Esther Connolly, HEATHER [address] [place], [place] [address] Clinical [facility] 09/27/24 11/08/24 Anastasia Rayo LPN [address] [place] [facility] 110 [place] [address] 11/08/24 documented as of this encounter
--- OUTSIDE RECORDS SUMMARY | 2025-05-26 09:58 | XMS_ITS | Encounter Summary ---
Author Organization [facility] Address [address] [place] [address] Care Team Providers Care Coating Technician Name Role Phone Beni Nguyen MD Primary Care Provider [phone] Beni Nguyen MD Unavailable [phone] Esther Connolly RN Unavailable Anastasia Rayo LPN Unavailable Encounter Details Date Type Department Care Team (Late st Contact Info) Description 07/11/2024 Abstract [facility] [address] [facility] 110 [place] [address] Beni Nguyen MD 112 [facility] 110 [place] [address] Social History Tobacco Use Types Packs/Day Years [...] Upcoming Encounters Date Type Department Care Team ([facility] st Contact Info) Description 07/03/2025 2:40 PM EST Procedure Visit [facility] PODIATRY 112 [facility] 120 [place] [address] Real Og DPM 3006 [facility] 5 [place] [address] documented as of this encounter Visit Diagnoses Not on filedocumented in this encounter Care Teams Coating Technician Relationship Specialty Start Date End Date Beni Nguyen MD 112 [facility] 110 [place] [address] PCP - General Internal Medicine 01/02/23 Beni Nguyen MD 112 [facility] 110 [place] [address] PCP - ACO Reach 01/12/23 Esther Connolly, HEATHER [address] [place], [place] [address] Clinical [facility] 09/27/24 11/08/24 Anastasia Rayo LPN 112 [facility] 110 [place] [address] 11/08/24 documented as of this encounter
--- OUTSIDE RECORDS SUMMARY | 2025-05-26 09:58 | XMS_ITS | Encounter Summary ---
Author Organization [facility] Address [address] [place] [address] Care Team Providers Care Filter Pulp Washer Name Role Phone Beni Nguyen MD Primary Care Provider [phone] Beni Nguyen MD Unavailable [phone] Esther Connolly RN Unavailable Anastasia Rayo LPN Unavailable Encounter Details Date Type Department Care Team (Late st Contact Info) Description 07/10/2024 Abstract [facility] [address] [facility] 110 [place] [address] Beni Nguyen MD 112 [facility] 110 [place] [address] Social History Tobacco Use Types Packs/Day Years [...] [facility] 120 [place] [address] Real Og DPM 3006 [facility] 5 [place] [address] documented as of this encounter Visit Diagnoses Not on filedocumented in this encounter Care Teams Filter Pulp Washer Relationship Specialty Start Date End Date Beni Nguyen MD 112 [facility] 110 [place] [address] PCP - General Internal Medicine 01/02/23 Beni Nguyen MD 112 [facility] 110 [place] [address] PCP - ACO Reach 01/12/23 Esther Connolly, HEATHER [address] [place], [place] [address] Clinical Advocate Family Medicine 09/27/24 11/08/24 Anastasia Rayo LPN 112 [facility] 110 [place] [address] 11/08/24 documented as of this encounter
--- OUTSIDE RECORDS SUMMARY | 2025-05-26 09:58 | XMS_ITS | Encounter Summary ---
Author Organization [facility] Address [address] [place] [address] Care Team Providers Care Steel Post Installer Name Role Phone Beni Nguyen MD Primary Care Provider [phone] Beni Nguyen MD Unavailable [phone] Esther Connolly RN Unavailable [phone] Anastasia Rayo LPN Unavailable Encounter Details Date Type Department Care Team (Late st Contact Info) Description 07/08/2024 Abstract [facility] [address] [facility] 110 [place] [address] Beni Nguyen MD 112 [facility] 110 [place] [address] Social History Tobacco Use Types Packs/Day Years [...] Upcoming Encounters Date Type Department Care Team ([facility] st Contact Info) Description 07/03/2025 2:40 PM EST Procedure Visit [facility] PODIATRY 112 [facility] 120 [place] [address] Real Og DPM 3006 [facility] 5 [place] [address] documented as of this encounter Visit Diagnoses Not on filedocumented in this encounter Care Teams Steel Post Installer Relationship Specialty Start Date End Date Beni Nguyen MD 112 [facility] 110 [place] [address] PCP - General Internal Medicine 01/02/23 Beni Nguyen MD 112 [facility] 110 [place] [address] PCP - ACO Reach 01/12/23 Esther Connolly, HEATHER [address] [place], [place] [address] Clinical Advocate Family Medicine 09/27/24 11/08/24 Anastasia Rayo LPN 112 [place] [facility] 110 [place] [address] 11/08/24 documented as of this encounter
--- OUTSIDE RECORDS SUMMARY | 2025-05-26 09:58 | XMS_ITS | Encounter Summary ---
Author Organization [facility] Address [address] [place] [address] Care Team Providers Care Regional Director Of Admissions Name Role Phone Beni Nguyen MD Primary Care Provider [phone] Beni Nguyen MD Unavailable [phone] Esther Connolly RN Unavailable Anastasia Rayo LPN Unavailable Encounter Details Date Type Department Care Team (Late st Contact Info) Description 07/10/2024 Abstract [facility] [address] [facility] 110 [place] [address] Beni Nguyen MD 112 [facility] 110 [place] [address] Social History Tobacco Use Types Packs/Day Years [...] Upcoming Encounters Date Type Department Care Team ([facility] st Contact Info) Description 07/03/2025 2:40 PM EST Procedure Visit [facility] PODIATRY 112 [facility] 120 [place] [address] Real Og DPM 3006 [facility] 5 [place] [address] documented as of this encounter Visit Diagnoses Not on filedocumented in this encounter Care Teams Regional Director Of Admissions Relationship Specialty Start Date End Date Beni Nguyen MD 112 [facility] 110 [place] [address] PCP - General Internal Medicine 01/02/23 Beni Nguyen MD 112 [facility] 110 [place] [address] PCP - ACO Reach 01/12/23 Esther Connolly, HEATHER [address] [place], [place] [address] Clinical Advocate Family Medicine 09/27/24 11/08/24 Anastasia Rayo LPN 112 [facility] 110 [place] [address] 11/08/24 documented as of this encounter
--- OUTSIDE RECORDS SUMMARY | 2025-05-26 09:58 | XMS_ITS | Clinical Summary ---
Author Organization [facility] Address [address] [place] [address] Care Team Providers Care Grounds And Nursery Specialist Name Role Phone Beni Nguyen MD Primary Care Provider [phone] Beni Nguyen MD Unavailable [phone] Anastasia Rayo LPN Unavailable Allergies Active Allergy Reactions Criticality Noted Date Comments Nebivolol Hallucinations High 09/24/2024 Medications Multiple Vitamins-Minerals (GNP ONE DAILY MENS 50+ADVANCED PO) 009 Active loratadine (Claritin) 10 MG tablet Take 10 mg by mouth Daily Active omega-3 (Fish Oil) 1000 MG capsule Take 2 capsules by mouth Daily Active nystatin (Mycostatin) 285713 UNIT/GM powder 023 Active apixaban (Eliquis) 5 [...] tablet 3 025 Active lisinopril 20 MG tabletIndications:Benig n essential hypertension Take 1 tablet (20 mg) by mouth Daily 90 tablet 3 025 2025 Active simvastatin (Zocor) 40 MG tabletIndications:Pure hypercholesterolemia TAKE 1 TABLET BY MOUTH ONCE DAILY IN THE EVENING 90 tablet 3 025 Active hydrALAZINE (Apresoline) 50 MG tabletIndications:Meeta n essential hypertension Take 1 tablet (50 mg) by mouth in the morning and 1 tablet (50 mg) before bedtime. 180 tablet 3 025 2025 Active gabapentin (Neurontin) 300 MG capsuleIndications:Type 2 diabetes mellitus with diabetic neuropathy, without long-term current use of insulin ([facility]) TAKE 1 CAPSULE BY MOUTH IN THE MORNING AND 1 CAPSULE BY MOUTH BEFORE BEDTIME 180 capsule 3 Active Additional Information Patient taking differently: 600 mg Oral 2 times daily, Morning, Bedtime, Reported on 05/22/2025 potassium chloride CR (Klor-Con M10) 10 MEQ ER tabletIndications:Hypok alemia TAKE 1 TABLET BY MOUTH IN THE MORNING AND 1 TABLET BY MOUTH BEFORE BEDTIME TAKE WITH FOOD 180 tablet 3 Active predniSONE (Deltasone) 10 MG tabletIndications:Myast henia gravis ([facility]) TAKE 1 AND 1/2 TABLETS BY MOUTH DAILY 135 tablet Active furosemide (Lasix) 20 MG tabletIndications:Local ized edema Take 1-2 tablets (20-40 mg) by mouth Daily 180 tablet 3 025 2025 Active spironolactone (Aldactone) 25 MG tablet Take 25 mg by mouth Daily Active baclofen (Lioresal) 10 MG tabletIndications:Cervi nabila stenosis of spinal canal TAKE 1 TABLET BY MOUTH WITH FOOD OR MILK 3 TIMES DAILY 270 tablet 3 025 Active oxyCODONE-acetaminophen (Percocet) 5-325 MG tabletIndications:Pain Take 1 tablet by mouth every 12 (twelve) hours if needed for moderate pain or severe pain 60 tablet 025 2024 Active oxyCODONE-acetaminophen (Percocet) 5-325 MG tabletIndications:Pain Take 1 tablet by mouth every 12 (twelve) hours if needed for moderate pain or severe pain 60 tablet 025 2024 Disconti nued(Reo rder) Active Problems Problem Noted Date Diagnosed Date [...] exertion 12/27/2022 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 Hypercoagulable state ([facility]) 12/27/2022 Hypokalemia 12/27/2022 Hyponatremia 12/27/2022 Loss of [...] Encounters Date Type Department Care Team Description 05/22/2025 2:30 PM EDT Office Visit [facility] [address] [facility] [address] [place] [id number] Leela Cherry NP Pain; Need for vaccination 05/22/2025 Bamboo flowsheet [facility] Anton [address] [facility] [address] [place] [phone] Leela Cherry NP 05/22/2025 Travel 05/05/2025 Abstract [facility] Anton [address] [facility] [address] [place] [address] Beni Nguyen MD 05/05/2025 Abstract [facility] [address] [facility] [address] [place] [address] Beni Nguyen MD 05/05/2025 Abstract [facility] [address] [facility] [address] [place] [address] Beni Nguyen MD 05/05/2025 Abstract [facility] [address] [facility] [address] [place] [address] Beni Nguyen MD 05/02/2025 Abstract [facility] [address] [facility] [address] [place] [address] Beni Nguyen MD 04/24/2025 2:50 PM EDT Procedure Visit [facility] [address] [facility] [address] [place] [address] Real Og, DPM 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cosis of toenails of both feet (Primary Dx); Venous insufficiency 04/24/2025 Bamboo flowsheet [facility] [address] [facility] [address] [place] [address] Real Og, DPM 04/24/2025 Travel 04/23/2025 Abstract [facility] [address] [facility] [address] [place] [address] Beni Nguyen MD 04/17/2025 Abstract [facility] [address] [facility] [address] [place] [address] Beni Nguyen MD 04/01/2025 11:30 AM EDT Office Visit [facility] [address] [facility] [address] [place] [address] Leela Cherry, LINE RIDER Gross hematuria (Primary Dx); Lumbosacral spondylosis without myelopathy 04/01/2025 Refill [facility] [address] [address] [place] [address] Leela Cherry, LINE RIDER Pain 04/01/2025 Bamboo flowsheet [facility] [address] [address] [place] [address] Leela Cherry NP 04/01/2025 Travel 03/28/2025 Travel 03/27/2025 Abstract [facility] [address] [address] [place] [address] Beni Nguyen MD 03/20/2025 Patient Outreach [facility] [place] [address] [place] [address] Anastasia Rayo [facility] 03/20/2025 Patient Outreach [facility] [address] [place] [address] Anastasia Rayo [facility] 03/19/2025 Abstract [facility] [address] [place] [address] Beni Nguyen MD 03/18/2025 Abstract [facility] [address] [place] [address] Beni Nguyen MD 03/07/2025 Abstract [facility] [address] [place] [address] Beni Nguyen MD 02/28/2025 Results Follow-Up [facility] [address] [address] [place] [address] Merry Grimes LPN [facility] CK, ALL CKMB 02/27/2025 Abstract [facility] [address] [place] [address] Beni Nguyen MD 02/26/2025 Refill [facility] [address] [place] [address] Beni Nguyen MD Cervical stenosis of spinal canal 02/26/2025 Telephone [facility] [address] [place] [address] Beni Nguyen MD 02/26/2025 Clinisync Result Encounter [facility] External Department Unsolicited Leela Cherry NP 02/26/2025 Refill [facility] 112 [facility] [address] [place] [address] Merry Grimes LPN Cervical stenosis of spinal canal 02/25/2025 Refill [facility] [address] [place] [address] Beni Nguyen MD Cervical stenosis of spinal canal 02/24/2025 Clinisync Result Encounter [facility] External Department Unsolicited Provider, Generic External Data 02/24/2025 Clinisync Result Encounter [facility] External Department Unsolicited Provider, Generic External Data 02/24/2025 [facility] [address] [place] [address] Beni Nguyen MD 02/24/2025 Abstract [facility] [address] [place] [address] Beni Nguyen MD from Last 3 Months Immunizations Immunization Administration Dates Next Due Influenza, High Dose Seasona l, Preservative Free 05/22/2025 Influenza, High-dose Seasona l, Quadrivalent, Preservative Free 06/22/2023,07/13/2022,05/06/2020,05/27,05/23/2018,05/17/2017 Influenza, Recombinant, inje ctable, preservative free 05/20/2021 Influenza, seasonal, injectable 06/05/2024 Influenza, seasonal, intrade rmal, preservative free 05/22/2015,05/30/2014 [...] How often do you attend chur or sabianism services? Never 03/17/2023 Do you [...] Recorded Patient Health Questionnaire-2 Score 0 05/22/2025 [facility] of Occupat ional [facility] - Occupational Stress Questionnaire Answer [...] Pulse 80 05/22/2025 2:33 PM EDT Temperature 36.7 C (98 F) 11/06/2023 12:54 PM EDT Respiratory Rate 17 05/22/2025 2:33 PM EDT Oxygen Saturation 94% 05/22/2025 2:33 PM EDT Inhaled Oxygen Concentration - - Weight 135 kg (298 lb) 05/22/2025 2:33 PM EDT Height 172.7 cm (5' 8 ) 05/22/2025 2:33 PM EDT Body Mass Index 45.31 05/22/2025 2:33 PM EDT Plan of Treatment Upcoming Encounters Date Type Department Care Team ([facility] st Contact Info) Description 07/03/2025 2:40 PM EST Procedure Visit [facility] 112 [facility] 120 [place] [address] Real Og DPM 3006 [facility] 5 [place] [address] Health Maintenance Due Date Last Done Comments Diabetes: Retinopathy Screening 1955 Diabetes: Urine Protein Screening 08/17/2021 08/17/2020, 05/27/2019, 03/15/2018 Diabetes: Hemoglobin A1C 12/16/2024 025, 09/25/2023, 03/31/2023, Additional history exists Pneumococcal Vaccine: 65+ Years Completed 11/30/2017, 08/06/2016, 10/26/2015, Additional history exists Influenza Vaccine Completed 05/22/2025, , 06/22/2023, Additional history exists Procedures Procedure Name Priority [...] UA Clear Glucose, UA Negative Negative - 2000(110) ++++ mg/dL Bilirubin, UA Negative Negative - 4(70) +++ mg/dL Ketones, UA Negative Negative - 160(16) ++++ mg/dL Spec Grav, UA 1.005 1 - 1.03 Blood, UA Negative Negative - 50 Rodri/mcL pH, UA 5.0 5 - 9 Protein, UA Negative Negative - 2000(20) ++++ mg/dL Urobilinogen, UA 0.2 0.2 - 12 mg/dL Leukocytes, UA Negative Negative - 500+++ Danilo/mcL Nitrite, UA Negative Negative - Positive Urine 04/01/2025 12:0 4 PM EDT us Leela Cherry NP POINT OF CARE TEST ENTER/BRITTANI T ORDERABLES Final Result * [facility] CK (02/26/2025 11:50 AM EDT) [facility] CREATININE KINASE 122 39 - 308 U/L TB 02/26/2025 11:5 0 AM EDT 02/26/2025 12:40 PM EDT Narrative CLINISYNC - 02/26/2025 1:06 PM EDT [facility] DROP OFF us Leela Cherry NP CLINISYNC Final Result CLINISYVA TB * ALL CKMB (02/26/2025 11:50 AM EDT) TB CREATININE KINASE MB 2.35 <=3.60 ng/mL TBH 02/26/2025 11:5 0 AM EDT 02/26/2025 12:40 PM EDT Narrative CLINISYNC - 02/26/2025 1:06 PM EDT [facility] DROP OFF Leela Cherry NP CLINISYNC Final Result Performing Organization Address City/[facility]/ZIP Co de Phone Number [facility] * MR LUMBAR SPINE WO CON (02/24/2025 7:31 PM EDT) Anatomical Region Laterality Modality Other 02/24/2025 7:31 PM EDT Narrative 02/24/2025 7:34 [place] [address] Magnetic Resonance Report Signed Patient: ANKUR GARCIA MR#: [id number] : 1945 Acct:[id number] Age/Sex: 79 / M ADM Date: 02/24/25 Loc: MRI Attending Dr: Saul Wright NP Ordering Physician: Saul Wright NP Date of Service: 02/24/25 Procedure(s): MR lumbar spine wo con Accession Number(s): [id number] cc: BENI NGUYEN ; Saul Wright NP [place] [id number] Patient Name: ANKUR GARCIA MRN: [facility]:[id number] date: 1945 Sex: M Assigned Patient Location: MRI Current Patient Location: MRI Accession/Order Number: [id number] Exam Date: 02/24/2025 19:25 Report Date: 02/24/2025 [...] Menjivar M.D. 02/24/2025 7:31 PM Dictation Location: [place] [address] Electronically authenticated by: [id number] Y Date: 02/24/2025 19:31 Dictated By: Mihai Menjivar M.D. Signed By: 02/24/251933 DD/ 30 TD/TT: Chancery Clerk: Procedure Note Radiology, Radiologist, MD - 02/24/2025 [place] [address] Magnetic Resonance Report Signed Patient: ANKUR GARCIA AMR#: [id number] : 1945cct:[id number] Age/Sex: 79 / MADM Date: 02/24/25 Loc: MRI Attending Dr: Saul Wright NP Ordering Physician: Saul Wright NP Date of Service: 02/24/25 Procedure(s): MR lumbar spine wo con Accession Number(s): [id number] cc: BENI NGUYEN ; Saul Wright NP The [place] [address] Patient Name: ANKUR GARCIA MRN: [id number] date: 1945 Sex: M Assigned Patient Location: MRI Current Patient Location: MRI Accession/Order Number: [id number] Exam Date: 02/24/2025 19:25 Report Date: 02/24/2025 [...] Is mass effect on the exiting right [id number] roots, similar to the prior exam. At [...] Menjivar M.D. 02/24/2025 7:31 PM Dictation Location: [place] [address] Electronically authenticated by: [id number] Y Date: 9:31 Dictated By: Mihai Menjivar M.D. Signed By:02/24/251933 DD/ 30 TD/TT: Chancery Clerk: us Generic External Data Provider [facility] IMAGING Final Result * XR LUMBAR SPINE 6V W BENDING (02/24/2025 4:27 PM EDT) Anatomical Region Laterality Modality Other 02/24/2025 4:27 PM EDT Narrative 02/24/2025 4:29 [place] [address] XRay Report Signed Patient: ANKUR GARCIA MR#: [id number] : 1945 Acct:[id number] Age/Sex: 79 / M ADM Date: 02/24/25 Loc: MRI Attending Dr: Saul Wright NP Ordering Physician: Saul Wright NP Date of Service: 02/24/25 Procedure(s): XR lumbar spine 6V w bending Accession Number(s): [id number] cc: BENI NGUYEN ; Saul Wright NP [place] [address] Patient Name: ANKUR GARCIA MRN: [id number] date: 1945 Sex: M Assigned Patient Location: MRI Current Patient Location: MRI Accession/Order Number: [id number] Exam Date: 02/24/2025 16:24 Report Date: 02/24/2025 [...] Mock M.D. 02/24/2025 4:27 PM Dictation Location: [place] [address] Electronically authenticated by: [id number] Y Date: 02/24/2025 16:27 Dictated By: Aaron Mock D.O. Signed By: 02/24/25 1629 DD/ 26 TD/TT: Chancery Clerk: Procedure Note Radiology, Radiologist, - 02/24/[address] [address] XRay Report Signed Patient: ANKUR GARCIA AMR#: [id number] : 1945cct:[id number] Age/Sex: 79 / MADM Date: 02/24/25 Loc: MRI Attending Dr: Saul Wright NP Ordering Physician: Saul Wright NP Date of Service: 02/24/25 Procedure(s): XR lumbar spine 6V w bending Accession Number(s): [id number] cc: BENI NGYUEN ; Saul Wright NP The [place] [address] Patient Name: ANKUR GARCIA MRN: [id number] date: 1945 Sex: M Assigned Patient Location: MRI Current Patient Location: MRI Accession/Order Number: [id number] Exam Date: 02/24/2025 16:24 Report Date: 02/24/2025 [...] Mock M.D. 02/24/2025 4:27 PM Dictation Location: [place] [address] Electronically authenticated by: [id number] Y Date: 6:27 Dictated By: Aaron Mock D.O. Signed By:02/24/25 1629 DD/ 1627 TD/TT: Chancery Clerk: us Generic External Data Provider CLIN[facility] IMAGING [...] ORDERABLES Final Res ult Performing Organization Address City/State/[facility] Co de Phone Number [facility] from Last 3 Months or Most Recently Relevant to Health Maintenance Insurance MEDICARE [facility] Care Teams Grounds And Nursery Specialist Relationship Specialty Start Date End Date Beni Nguyen MD 112 [facility] 110 [place] [address] PCP - General Internal Medicine 01/02/23 Beni Nguyen MD [address] [facility] 110 [place] [address] PCP - ACO Reach 01/12/23 Anastasia Rayo LPN [address] [facility] 110 [place] [address] 11/08/24
--- OUTSIDE RECORDS SUMMARY | 2025-05-26 09:58 | XMS_ITS | Encounter Summary ---
Author Organization [facility] Address [address] [place] [address] Care Team Providers Care Customer Sales Specialist Name Role Phone Beni Nguyen MD Primary Care Provider [phone] Beni Nguyen MD Unavailable [phone] Esther Connolly RN Unavailable Anastasia Rayo LPN Unavailable Encounter Details Date Type Department Care Team (Late st Contact Info) Description 06/20/2024 Abstract [facility] [place] [address] [facility] 110 [place] [address] Beni Nguyen MD 112 [facility] 110 [place] [address] Social History Tobacco Use Types Packs/Day Years [...] PODIATRY 112 [facility] 120 [place] [address] Real Og DPM 3006 [facility] [place] [address] documented as of this encounter Visit Diagnoses Not on filedocumented in this encounter Care Teams Customer Sales Specialist Relationship Specialty Start Date End Date Beni Nguyen MD 112 [facility] 110 [place] [address] PCP - General Internal Medicine 01/02/23 Beni Nguyen MD 112 [facility] 110 [place] [address] PCP - ACO Reach 01/12/23 Esther Connolly, HEATHER [address] [place], [place] [address] Clinical [facility]ocate Family [facility] 09/27/24 11/08/24 Anastasia Rayo LPN [address] [place] [facility] 110 [place] [address] 11/08/24 documented as of this encounter
--- OUTSIDE RECORDS SUMMARY | 2025-05-26 09:58 | XMS_ITS | Encounter Summary ---
Author Organization [facility] Address [address] [place] [address] Care Team Providers Care Director Digital Name Role Phone Beni Nguyen MD Primary Care Provider [phone] Beni Nguyen MD Unavailable [phone] Esther Connolly RN Unavailable Anastasia Rayo LPN Unavailable Encounter Details Date Type Department Care Team (Late st Contact Info) Description 07/24/2024 Abstract [facility] [address] [facility] 110 [place] [address] Beni Nguyen MD 112 [facility] 110 [place] [address] Social History Tobacco Use Types Packs/Day Years [...] EST Procedure Visit [facility] 112 [facility] 120 [place] [address] Real Og DPM 3006 [facility] 5 [place] [address] documented as of this encounter Visit Diagnoses Not on filedocumented in this encounter Care Teams Director Digital Relationship Specialty Start Date End Date Beni Nguyen MD 112 [facility] 110 [place] [address] PCP - General Internal Medicine 01/02/23 Beni Nguyen MD 112 [facility] 110 [place] [address] PCP - ACO Reach 01/12/23 Esther Connolly, HEATHER [address] [place], [place] [address] Clinical [facility] Family [facility] 09/27/24 11/08/24 Anastasia Rayo LPN 112 [place] [facility] 110 [place] [address] 11/08/24 documented as of this encounter
--- OUTSIDE RECORDS SUMMARY | 2025-05-26 09:58 | XMS_ITS | Encounter Summary ---
Author Organization [facility] Address [address] [place] [address] Care Team Providers Care Billet Bed Operator Name Role Phone Beni Nguyen MD Primary Care Provider [phone] Beni Nguyen MD Unavailable [phone] Esther Connolly RN Unavailable Anastasia Rayo LPN Unavailable Encounter Details Date Type Department Care Team (Late st Contact Info) Description 06/20/2024 Abstract [facility] [place] [facility] [address] [facility] 110 [place] [address] Beni Nguyen MD 112 [facility] 110 [place] [address] Social History Tobacco Use Types Packs/Day Years [...] ([facility] st Contact Info) Description 07/03/2025 2:40 PM EST Procedure Visit [facility] 112 [facility] 120 [place] [address] Real Og DPM 3006 [facility] 5 [place] [address] documented as of this encounter Visit Diagnoses Not on filedocumented in this encounter Care Teams Billet Bed Operator Relationship Specialty Start Date End Date Beni Nguyen MD 112 [facility] 110 [place] [address] PCP - General Internal Medicine 01/02/23 Beni Nguyen MD 112 [facility] 110 [place] [address] PCP - ACO Reach 01/12/23 Esther Connolly, HEATHER [address] [place], [place] [address] Clinical [facility] 09/27/24 11/08/24 Anastasia Rayo LPN 112 [place] [facility] 110 [place] [address] 11/08/24 documented as of this encounter
--- OUTSIDE RECORDS SUMMARY | 2025-05-26 09:58 | XMS_ITS | Encounter Summary ---
Author Organization [facility] Address [address] [place] [address] Care Team Providers Care Forest Products Teacher Name Role Phone Beni Nguyen MD Primary Care Provider Beni Nguyen MD Unavailable [phone] Esther Connolly RN Unavailable [phone] Anastasia Rayo LPN Unavailable Encounter Details Date Type Department Care Team (Late st Contact Info) Description 06/25/2024 Abstract [facility] [place] [facility] [address] [facility] 110 [place] [address] Beni Nguyen MD 112 [facility] 110 [place] [address] Social History Tobacco Use Types Packs/Day Years [...] Health Questionnaire-2 Score 0 10/05/2023 [facility] of Occupat [...] [facility] 112 [facility] 120 [place] [address] Real Og DPM 3006 [facility] 5 [place] [address] documented as of this encounter Visit Diagnoses Not on filedocumented in this encounter Care Teams Forest Products Teacher Relationship Specialty Start Date End Date Beni Nguyen MD 112 [facility] 110 [place] [address] PCP - General Internal Medicine 01/02/23 Beni Nguyen MD 112 [facility] 110 [place] [address] PCP - ACO Reach 01/12/23 Esther Connolly, HEATHER [address] [place], [place] [address] Clinical [facility] Family [facility] 09/27/24 11/08/24 Anastasia Rayo LPN 112 [facility] 110 [place] [address] 11/08/24 documented as of this encounter
--- OUTSIDE RECORDS SUMMARY | 2025-05-26 09:58 | XMS_ITS | Encounter Summary ---
Author Organization [facility] Address [address] [place] [address] Care Team Providers Care Landscape Architect Name Role Phone Beni Nguyen MD Primary Care Provider [phone] Beni Nguyen MD Unavailable [phone] Esther Connolly RN Unavailable [phone] Anastasia Rayo LPN Unavailable Encounter Details Date Type Department Care Team (Late st Contact Info) Description 08/04/2023 Abstract [facility] [place] [facility] [address] [facility] 110 [place] [address] Beni Nguyen MD 112 [facility] 110 [place] [address] Social History Tobacco Use Types Packs/Day Years [...] PODIATRY 112 [facility] 120 [place] [address] Real Og, DPM 3006 [facility] 5 [place] [address] documented as of this encounter Visit Diagnoses Not on filedocumented in this encounter Care Teams Landscape Architect Relationship Specialty Start Date End Date Beni Nguyen MD [address] [facility] 110 [place] [address] PCP - General Internal Medicine 01/02/23 Beni Nguyen MD [address] [facility] 110 [place] [address] PCP - ACO Reach 01/12/23 Esther Connolly RN [address] [place], [place] [address] Clinical [facility] 09/27/24 11/08/24 Anastasia Rayo LPN [address] [address] 11/08/24 documented as of this encounter
--- OUTSIDE RECORDS SUMMARY | 2025-05-26 09:58 | XMS_ITS | Encounter Summary ---
Author Organization [facility] Address [address] [place] [address] Care Team Providers Care Inventory Technician Name Role Phone Beni Nguyen MD Primary Care Provider [phone] Beni Nguyen MD Unavailable [phone] Esther Connolly RN Unavailable Anastasia Rayo LPN Unavailable Encounter Details Date Type Department Care Team (Late st Contact Info) Description 06/29/2023 Abstract [facility] [address] [facility] 110 [place] [address] Beni Nguyen MD 112 [facility] 110 [place] [address] Social History Tobacco Use Types Packs/Day Years [...] CI PODIATRY 112 [facility] 120 [place] [address] Real Og, DPM 3006 [facility] 5 [place] [address] documented as of this encounter Visit Diagnoses Not on filedocumented in this encounter Care Teams Inventory Technician Relationship Specialty Start Date End Date Beni Nguyen MD 112 [place] 110 [place] [address] PCP - General Internal Medicine 01/02/23 Beni Nguyen MD [address] [facility] 110 [place] [address] PCP - ACO Reach 01/12/23 Esther Connolly RN [address] [place], [place] [address] [facility] 09/27/24 11/08/24 Anastasia Rayo LPN [address] [address] 11/08/24 documented as of this encounter
--- OUTSIDE RECORDS SUMMARY | 2025-05-26 09:58 | XMS_ITS | Encounter Summary ---
Author Organization [facility] Address [address] [place] [address] Care Team Providers Care Display Designer Name Role Phone Beni Nguyen MD Primary Care Provider [phone] Beni Nguyen MD Unavailable [phone] Esther Connolly RN Unavailable [phone] Anastasia Rayo LPN Unavailable Encounter Details Date Type Department Care Team (Late st Contact Info) Description 08/23/2023 Abstract [facility] [address] [facility] 110 [place] [address] Beni Nguyen MD 112 [facility] 110 [place] [address] Social History Tobacco Use Types Packs/Day Years [...] and heating? Not hard at all 03/17/2023 [facility] Occupat ional [facility] - [...] PODIATRY 112 [facility] 120 [place] [address] Real Og, DPM 3006 [facility] 5 [place] [address] documented as of this encounter Visit Diagnoses Not on filedocumented in this encounter Care Teams Display Designer Relationship Specialty Start Date End Date Beni Nguyen MD [address] [facility] 110 [place] [address] PCP - General Internal Medicine 01/02/23 Beni Nguyen MD [address] [facility] 110 [place] [address] PCP - ACO Reach 01/12/23 Esther Connolly RN [address] [place], [place] [address] [facility] 09/27/24 11/08/24 Anastasia Rayo LPN [address] [address] 11/08/24 documented as of this encounter
--- OUTSIDE RECORDS SUMMARY | 2025-05-26 09:58 | XMS_ITS | Encounter Summary ---
Author Organization [facility] Address [address] [place] [address] Care Team Providers Care Travel Assistant Name Role Phone Beni Nguyen MD Primary Care Provider [phone] Beni Nguyen MD Unavailable [phone] Esther Connolly RN Unavailable [phone] Anastasia Rayo LPN Unavailable Encounter Details Date Type Department Care Team (Late st Contact Info) Description 07/15/2024 Abstract [facility] [address] [facility] 110 [place] [address] Beni Nguyen MD 112 [facility] 110 [place] [address] Social History Tobacco Use Types Packs/Day Years [...] [facility] 120 [place] [address] Real Og DPM 3006 [facility] 5 [place] [address] documented as of this encounter Visit Diagnoses Not on filedocumented in this encounter Care Teams Travel Assistant Relationship Specialty Start Date End Date Beni Nguyen MD 112 [facility] 110 [place] [address] PCP - General Internal Medicine 01/02/23 Beni Nguyen MD 112 [facility] 110 [place] [address] PCP - ACO Reach 01/12/23 Esther Connolly, HEATHER [address] [place], [place] [address] [facility] 09/27/24 11/08/24 Anastasia Rayo LPN 112 [place] [facility] 110 [place] [address] 11/08/24 documented as of this encounter
--- OUTSIDE RECORDS SUMMARY | 2025-05-26 09:58 | XMS_ITS | Patient Health Record ---
Author Organization [facility] [place] Address [address] [place] [address] Care Team Providers Care Agency Owner Name Role Phone Beni Nguyen MD Primary Care Provider Ivan Velazquez [phone] Allergies No Known Allergies Reason For Referral [...] a day; Duration: 30 day(s) Active pyRIDostigmine Elmira 60 MG 1 tablet Orally every 4 [...] day; Duration: 30 day(s) * Lot # [id number], Expiration Date: 10/202409/08/2022 Not-Taking Immunizations Vaccine Route Administration Date Status Comme nts Flu, Fluzone High-Dose (2022 -2023) (62377) 65 yrs+ Unknown 06/22/2023 Administered Pneumococcal (Pneumovax [...] W/U Status Risk Notes Problem Essential hypertension (09754854) Essential (primary) hypertension (I10) Active confirmed Problem Myasthenia gravis without exacerbation (08105275230406 ) Myasthenia gravis without (acute) exacerbation (G70.00) Active confirmed Problem Excess skin of eyelid (376919991) Dermatochalasis of right eye, unspecified eyelid (H02.833) Active confirmed Problem Excess skin of eyelid (794845053) Dermatochalasis of left eye, unspecified eyelid (H02.836) Active confirmed Problem Paroxysmal atrial fibrillation (234663140) Paroxysmal atrial fibrillation (I48.0) Active confirmed Problem Morbid obesity (484564170) Morbid obesity (E66.01) Active confirmed Problem Myasthenia gravis (70009796) Myasthenia gravis (G70.00) Active confirmed Problem Obstructive sleep apnea syndrome (54264333) JAMISON (obstructive sleep apnea) (G47.33) Active confirmed Problem Obstructive sleep apnea syndrome (58608211) JAMISON on CPAP (G47.33) Active confirmed Problem History of pulmonary embolus (350127147) History of pulmonary embolism (Z86.711) Active confirmed Problem Malignant tumor of urinary bladder (305271096) Malignant neoplasm of urinary bladder, unspecified site (C67.9) Active confirmed Problem 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 Problem Epiretinal membrane (811395172) Macular pucker, right eye (H35.371) Active confirmed OP'D. Problem Serous retinal detachment (16199421) Retinal detachment, right (H33.21) Active confirmed OP'D. Problem Pseudophakia of right eye (92694366872802 102) Pseudophakia of right eye (Z96.1) Active confirmed Problem Myasthenia gravis without exacerbation (40318002875248 ) MG, ocular (myasthenia gravis) (G70.00) Active confirmed DOING WELL. SAME TX. ARRANGE FOR F/U IN [facility]). Problem Pseudophakia of right eye (92397887207925 102) Pseudophakia, right eye (Z96.1) Active confirmed Problem Myasthenic crisis (69302326) Myasthenic crisis (G70.01) Active confirmed Plan Of Treatment No Information Insurance Providers Payer Name Payer Address Payer Phone Subscriber Number Group Number Insured Name Patient Relationship to Insured Coverage Start Date Coverage End Date [place] [address] [place] [address] [phone] [id number] Ankur Reilly Self - patient is the insured 9 [facility] [address] [place] [address] [phone] [id number] PLAN F Ankur Reilly Self - patient [...] Reason Date(Month/Year) Myasthenic Crisis with acute respiratory failure-[facility] 05/09/2023
--- OUTSIDE RECORDS SUMMARY | 2025-05-26 09:58 | XMS_ITS | Encounter Summary ---
Author Organization [facility] Address [address] [place] [address] Care Team Providers Care Ur Coordinator Name Role Phone Beni Nguyen MD Primary Care Provider [phone] Beni Nguyen MD Unavailable [phone] Esther Connolly RN Unavailable Anastasia Rayo LPN Unavailable Encounter Details Date Type Department Care Team (Late st Contact Info) Description 06/24/2024 Abstract [facility] [address] [facility] 110 [place] [address] Beni Nguyen MD 112 [facility] 110 [place] [address] Social History Tobacco Use Types Packs/Day Years [...] PODIATRY 112 [facility] 120 [place] [address] eRal Og DPM 3006 [facility] 5 [place] [address] documented as of this encounter Visit Diagnoses Not on filedocumented in this encounter Care Teams Ur Coordinator Relationship Specialty Start Date End Date Beni Nguyen MD 112 [facility] 110 [place] [address] PCP - General Internal Medicine 01/02/23 Beni Nguyen MD 112 [facility] 110 [place] [address] PCP - ACO Reach 01/12/23 Esther Connolly, HEATHER [address] [place], [place] [address] [facility] 09/27/24 11/08/24 Anastasia Rayo LPN 112 [facility] 110 [place] [address] 11/08/24 documented as of this encounter
--- OUTSIDE RECORDS SUMMARY | 2025-05-26 09:58 | XMS_ITS | Encounter Summary ---
Author Organization [facility] Address [address] [place] [address] Care Team Providers Care Loss Claim Clerk Name Role Phone Beni Nguyen MD Primary Care Provider [phone] Beni Nguyen MD Unavailable [phone] Esther Connolly RN Unavailable [phone] Anastasia Rayo LPN Unavailable Encounter Details Date Type Department Care Team (Late st Contact Info) Description 09/01/2023 Abstract [facility] [address] [facility] 110 [place] [address] Beni Nguyen MD 112 [facility] 110 [place] [address] Social History Tobacco Use Types Packs/Day Years [...] Not hard at all 03/17/2023 [facility] of Occupat ional Health [...] CI PODIATRY 112 [facility] 120 [place] [address] Real Og, DPM 3006 [facility] 5 [place] [address] documented as of this encounter Visit Diagnoses Not on filedocumented in this encounter Care Teams Loss Claim Clerk Relationship Specialty Start Date End Date Beni Nguyen MD [address] [facility] 110 [place] [address] PCP - General Internal Medicine 01/02/23 Beni Nguyen MD [address] [facility] 110 [place] [address] PCP - ACO Reach 01/12/23 Esther Connolly RN [address] [place], [place] [address] [facility] 09/27/24 11/08/24 Anastasia Rayo LPN [address] [address] 11/08/24 documented as of this encounter
--- OUTSIDE RECORDS SUMMARY | 2025-05-26 09:58 | XMS_ITS | Encounter Summary ---
Author Organization [facility] Address [address] [place] [address] Care Team Providers Care Horse Rider Name Role Phone Beni Nguyen MD Primary Care Provider [phone] Beni Nguyen MD Unavailable [phone] Esther Connolly RN Unavailable Anastasia Rayo LPN Unavailable Encounter Details Date Type Department Care Team (Late st Contact Info) Description 06/24/2024 Abstract [facility] 112 [address] [facility] 110 [place] [address] Beni Nguyen MD 112 [facility] 110 [place] [address] Social History Tobacco Use Types Packs/Day Years [...] CI PODIATRY 112 [facility] 120 [place] [address] Real Og DPM 3006 [facility] 5 [place] [address] documented as of this encounter Visit Diagnoses Not on filedocumented in this encounter Care Teams Horse Rider Relationship Specialty Start Date End Date Beni Nguyen MD 112 [facility] 110 [place] [address] PCP - General Internal Medicine 01/02/23 Beni Nguyen MD 112 [facility] 110 [place] [address] PCP - ACO Reach 01/12/23 Esther Connolly, HEATHER [address] [place], [place] [address] [facility] 09/27/24 11/08/24 Anastasia Rayo LPN 112 [place] [facility] 110 [place] [address] 11/08/24 documented as of this encounter
--- OUTSIDE RECORDS SUMMARY | 2025-05-26 09:58 | XMS_ITS | Encounter Summary ---
Author Organization [facility] Address [address] [place] [address] Care Team Providers Care Clerk Checker Name Role Phone Beni Nguyen MD Primary Care Provider [phone] Beni Nguyen MD Unavailable [phone] Esther Connolly RN Unavailable [phone] Anastasia Rayo LPN Unavailable Encounter Details Date Type Department Care Team (Late st Contact Info) Description 06/20/2024 Abstract [facility] 112 [address] [facility] 110 [place] [address] Beni Nguyen MD 112 [facility] 110 [place] [address] Social History Tobacco Use Types Packs/Day Years [...] ([facility] st Contact Info) Description 07/03/2025 2:40 PM EST Procedure Visit [facility] CI PODIATRY 112 [facility] 120 [place] [address] Real Og DPM 3006 [facility] 5 [place] [address] documented as of this encounter Visit Diagnoses Not on filedocumented in this encounter Care Teams Clerk Checker Relationship Specialty Start Date End Date Beni Nguyen MD 112 [facility] 110 [place] [address] PCP - General Internal Medicine 01/02/23 Beni Nguyen MD 112 [facility] 110 [place] [address] PCP - ACO Reach 01/12/23 Esther Connolly, HEATHER [address] [place], [place] [address] [facility] 09/27/24 11/08/24 Anastasia Rayo LPN 112 [facility] 110 [place] [address] 11/08/24 documented as of this encounter
--- OUTSIDE RECORDS SUMMARY | 2025-05-26 09:58 | XMS_ITS | Encounter Summary ---
Author Organization [facility] Address [address] [place] [address] Care Team Providers Care Chief Petroleum Engineer Name Role Phone Beni Nguyen MD Primary Care Provider [phone] Beni Nguyen MD Unavailable [phone] Esther Connolly RN Unavailable [phone] Anastasia Rayo LPN Unavailable Encounter Details Date Type Department Care Team (Late st Contact Info) Description 06/24/2024 Abstract [facility] [address] [facility] 110 [place] [address] Beni Nguyen MD 112 [facility] 110 [place] [address] Social History Tobacco Use Types Packs/Day Years [...] Upcoming Encounters Date Type Department Care Team ([facility] st Contact Info) Description 07/03/2025 2:40 PM EST Procedure Visit [facility] CI PODIATRY 112 [facility] 120 [place] [address] Real Og DPM 3006 [facility] 5 [place] [address] documented as of this encounter Visit Diagnoses Not on filedocumented in this encounter Care Teams Chief Petroleum Engineer Relationship Specialty Start Date End Date Beni Nguyen MD 112 [facility] 110 [place] [address] PCP - General Internal Medicine 01/02/23 Beni Nguyen MD 112 [facility] 110 [place] [address] PCP - ACO Reach 01/12/23 Esther Connolly, HEATHER [address] [place], [place] [address] [facility] 09/27/24 11/08/24 Anastasia Rayo LPN 112 [place] [facility] 110 [place] [address] 11/08/24 documented as of this encounter
--- OUTSIDE RECORDS SUMMARY | 2025-05-26 09:58 | XMS_ITS | Encounter Summary ---
Author Organization [facility] Address [address] [place] [address] Care Team Providers Care Strategies Analyst Name Role Phone Beni Nguyen MD Primary Care Provider [phone] Beni Nguyen MD Unavailable [phone] Esther Connolly RN Unavailable Anastasia Rayo LPN Unavailable Encounter Details Date Type Department Care Team (Late st Contact Info) Description 06/20/2024 Abstract [facility] [address] [facility] 110 [place] [address] Beni Nguyen MD 112 [facility] 110 [place] [address] Social History Tobacco Use Types Packs/Day Years [...] Upcoming Encounters Date Type Department Care Team ([facility] st Contact Info) Description 07/03/2025 2:40 PM EST Procedure Visit [facility] CI PODIATRY 112 [facility] 120 [place] [address] Real Og DPM 3006 [facility] 5 [place] [address] documented as of this encounter Visit Diagnoses Not on filedocumented in this encounter Care Teams Strategies Analyst Relationship Specialty Start Date End Date Beni Nguyen MD 112 [facility] 110 [place] [address] PCP - General Internal Medicine 01/02/23 Beni Nguyen MD 112 [facility] 110 [place] [address] PCP - ACO Reach 01/12/23 Esther Connolly, HEATHER [address] [place], [place] [address] [facility] 09/27/24 11/08/24 Anastasia Rayo LPN 112 [place] 110 [place] [address] 11/08/24 documented as of this encounter
--- OUTSIDE RECORDS SUMMARY | 2025-05-26 09:58 | XMS_ITS | Encounter Summary ---
Author Organization [facility] Address [address] [place] [address] Care Team Providers Care Trouble Clerk Name Role Phone Beni Nguyen MD Primary Care Provider [phone] Beni Nguyen MD Unavailable [phone] Esther Connolly RN Unavailable Anastasia Rayo LPN Unavailable Encounter Details Date Type Department Care Team (Late st Contact Info) Description 07/15/2024 Abstract [facility] [place] [facility] [address] [facility] 110 [place] [address] Beni Nguyen MD 112 [facility] 110 [place] [address] Social History Tobacco Use Types Packs/Day Years [...] often do you attend chur ch or christian services? Never 03/17/2023 Do you belong to [...] CI PODIATRY 112 [facility] 120 [place] [address] Real Og DPM 3006 [facility] 5 [place] [address] documented as of this encounter Visit Diagnoses Not on filedocumented in this encounter Care Teams Trouble Clerk Relationship Specialty Start Date End Date Beni Nguyen MD 112 [facility] 110 [place] [address] PCP - General Internal Medicine 01/02/23 Beni Nguyen MD 112 [facility] 110 [place] [address] PCP - ACO Reach 01/12/23 Esther Connolly, HEATHER [address] [place], [place] [address] [facility] 09/27/24 11/08/24 Anastasia Rayo LPN 112 [place] [facility] 110 [place] [address] 11/08/24 documented as of this encounter
--- OUTSIDE RECORDS SUMMARY | 2025-05-26 09:58 | XMS_ITS | Encounter Summary ---
Author Organization [facility] Address [address] [place] [address] Care Team Providers Care Wharf Worker Name Role Phone Beni Nguyen MD Primary Care Provider [phone] Beni Nguyen MD Unavailable [phone] Esther Connolly RN Unavailable Anastasia Rayo LPN Unavailable Encounter Details Date Type Department Care Team (Late st Contact Info) Description 07/26/2023 Abstract [facility] [place] [facility] [address] [facility] 110 [place] [address] Beni Nguyen MD 112 [facility] 110 [place] [address] Social History Tobacco Use Types Packs/Day Years [...] hard at all 03/17/2023 [facility] of Occupat [...] PODIATRY 112 [facility] 120 [place] [address] Real Og, DPM 3006 [facility] 5 [place] [address] documented as of this encounter Visit Diagnoses Not on filedocumented in this encounter Care Teams Wharf Worker Relationship Specialty Start Date End Date Beni Nguyen MD 112 [place] [facility] 110 [place] [address] PCP - General Internal Medicine 01/02/23 Beni Nguyen MD [address] [facility] 110 [place] [address] PCP - ACO Reach 01/12/23 Esther Connolly RN [address] [place], [place] [address] [facility] 09/27/24 11/08/24 Anastasia Rayo LPN [address] [address] 11/08/24 documented as of this encounter
--- OUTSIDE RECORDS SUMMARY | 2025-05-26 09:59 | XMS_ITS | Encounter Summary ---
Author Organization [facility] Address [address] [place] [address] Care Team Providers Care Commercial Loan Assistant Name Role Phone Beni Nguyen MD Primary Care Provider [phone] Beni Nguyen MD Unavailable [phone] Esther Connolly RN Unavailable Anastasia Rayo LPN Unavailable Encounter Details Date Type Department Care Team (Late st Contact Info) Description 07/30/2024 Abstract [facility] [place] [facility] 112 [address] [facility] 110 [place] [address] Beni Nguyen MD 112 [facility] 110 [place] [address] Social History Tobacco Use Types Packs/Day Years [...] Recorded Patient Health Questionnaire-2 Score 0 10/05/2023 [facility] of Occupat ional Health - Occupational Stress [...] 112 [facility] 120 [place] [address] Real Og DPM 3006 [facility] 5 [place] [address] documented as of this encounter Visit Diagnoses Not on filedocumented in this encounter Care Teams Commercial Loan Assistant Relationship Specialty Start Date End Date Beni Nguyen MD 112 [facility] 110 [place] [address] PCP - General Internal Medicine 01/02/23 Beni Nguyen MD 112 [facility] 110 [place] [address] PCP - ACO Reach 01/12/23 Esther Connolly, HEATHER [address] [place], [place] [address] [facility] 09/27/24 11/08/24 Anastasia Rayo LPN [address] [facility] 110 [place] [address] 11/08/24 documented as of this encounter
--- OUTSIDE RECORDS SUMMARY | 2025-05-26 09:59 | XMS_ITS | Encounter Summary ---
Author Organization [facility] Address [address] [place] [address] Care Team Providers Care Route Carrier Name Role Phone Beni Nguyen MD Primary Care Provider Beni Nguyen MD Unavailable [phone] Esther Connolly RN Unavailable Anastasia Rayo LPN Unavailable Encounter Details Date Type Department Care Team (Late st Contact Info) Description 08/22/2024 Abstract [facility] [place] [facility] 112 [address] [facility] 110 [place] [address] Beni Nguyen MD 112 [facility] 110 [place] [address] Social History Tobacco Use Types Packs/Day Years [...] Recorded Patient Health Questionnaire-2 Score 0 10/05/2023 [facility] of Occupat ional Health [...] CI PODIATRY 112 [facility] 120 [place] [address] Real Og DPM 3006 [facility] 5 [place] [address] documented as of this encounter Visit Diagnoses Not on filedocumented in this encounter Care Teams Route Carrier Relationship Specialty Start Date End Date Beni Nguyen MD 112 [facility] 110 [place] [address] PCP - General Internal Medicine 01/02/23 Beni Nguyen MD 112 [facility] 110 [place] [address] PCP - ACO Reach 01/12/23 Esther Connolly, HEATHER [address] [place], [place] [address] [facility] 09/27/24 11/08/24 Anastasia Rayo LPN 112 [place] [facility] 110 [place] [address] 11/08/24 documented as of this encounter
--- OUTSIDE RECORDS SUMMARY | 2025-05-26 09:59 | XMS_ITS | Encounter Summary ---
Author Organization [facility] Address [address] [place] [address] Care Team Providers Care Fortune Teller Name Role Phone Beni Nguyen MD Primary Care Provider [phone] Beni Nguyen MD Unavailable [phone] Esther Connolly RN Unavailable Anastasia Rayo LPN Unavailable Encounter Details Date Type Department Care Team (Late st Contact Info) Description 08/28/2024 Abstract [facility] 112 [facility] 110 [place] [address] Beni Nguyen MD 112 [facility] 110 [place] [address] Social History Tobacco Use Types Packs/Day Years [...] Recorded Patient Health Questionnaire-2 Score 0 10/05/2023 [facility] [...] CI PODIATRY 112 [facility] 120 [place] [address] Real Og DPM 3006 [facility] 5 [place] [address] documented as of this encounter Visit Diagnoses Not on filedocumented in this encounter Care Teams Fortune Teller Relationship Specialty Start Date End Date Beni Nguyen MD 112 [facility] 110 [place] [address] PCP - General Internal Medicine 01/02/23 Beni Nguyen MD 112 [facility] 110 [place] [address] PCP - ACO Reach 01/12/23 Esther Connolly, HEATHER [address] [place], [place] [address] Clinical [facility]ocate Family Medicine 09/27/24 11/08/24 Anastasia Rayo LPN [address] [facility] 110 [place] [address] 11/08/24 documented as of this encounter
--- OUTSIDE RECORDS SUMMARY | 2025-05-26 09:59 | XMS_ITS | Encounter Summary ---
Author Organization [facility] Address [address] [place] [address] Care Team Providers Care Brim Flexer Name Role Phone Beni Nguyen MD Primary Care Provider [phone] Beni Nguyen MD Unavailable [phone] Esther Connolly RN Unavailable Anastasia Rayo LPN Unavailable Encounter Details Date Type Department Care Team (Late st Contact Info) Description 09/17/2024 Abstract [facility] 112 [address] [facility] 110 [place] [address] Beni Nguyen MD 112 [facility] 110 [place] [address] Social History Tobacco Use Types Packs/Day Years [...] PODIATRY 112 [facility] 120 [place] [address] Real Og DPM 3006 [facility] 5 [place] [address] documented as of this encounter Visit Diagnoses Not on filedocumented in this encounter Care Teams Brim Flexer Relationship Specialty Start Date End Date Beni Nguyen MD 112 [facility] 110 [place] [address] PCP - General Internal Medicine 01/02/23 Beni Nguyen MD 112 [facility] 110 [place] [address] PCP - ACO Reach 01/12/23 Esther Connolly, HEATHER [address] [place], [place] [address] Clinical Advocate Family Medicine 09/27/24 11/08/24 Anastasia Rayo LPN 112 [facility] 110 [place] [address] 11/08/24 documented as of this encounter
--- OUTSIDE RECORDS SUMMARY | 2025-05-26 09:59 | XMS_ITS | Encounter Summary ---
Author Organization [facility] Address [address] [place] [address] Care Team Providers Care Vascular Physician Name Role Phone Beni Nguyen MD Primary Care Provider [phone] Beni Nguyen MD Unavailable [phone] Esther Connolly RN Unavailable Anastasia Rayo LPN Unavailable Encounter Details Date Type Department Care Team (Late st Contact Info) Description 08/19/2024 Abstract [facility] 112 [facility] [facility] 110 [place] [address] Beni Nguyen MD 112 [facility] 110 [place] [address] Social History Tobacco Use Types Packs/Day Years [...] Upcoming Encounters Date Type Department Care Team ([facility] st Contact Info) Description 07/03/2025 2:40 PM EST Procedure Visit [facility]IATRY 112 [facility] 120 [place] [address] Real Og DPM 3[address] [facility] 5 [place] [address] documented as of this encounter Visit Diagnoses Not on filedocumented in this encounter Care Teams Vascular Physician Relationship Specialty Start Date End Date Beni Nguyen MD 112 [facility] 110 [place] [address] PCP - General Internal Medicine 01/02/23 Beni Nguyen MD 112 [facility] 110 [place] [address] PCP - ACO Reach 01/12/23 Esther Connolly, HEATHER [address] [place], [place] [address] Clinical Advocate Family Medicine 09/27/24 11/08/24 Anastasia Rayo LPN 112 [facility] 110 [place] [address] 11/08/24 documented as of this encounter
--- OUTSIDE RECORDS SUMMARY | 2025-05-26 09:59 | XMS_ITS | Encounter Summary ---
Author Organization [facility] Address [address] [place] [address] Care Team Providers Care Table Keeper Name Role Phone Beni Nguyen MD Primary Care Provider [phone] Beni Nguyen MD Unavailable [phone] Esther Connolly RN Unavailable Anastasia Rayo LPN Unavailable Encounter Details Date Type Department Care Team (Late st Contact Info) Description 09/16/2024 Abstract [facility] [address] [facility] 110 [place] [address] Beni Nguyen MD 112 [facility] 110 [place] [address] Social History Tobacco Use Types Packs/Day Years [...] [facility] 120 [place] [address] Real Og DPM 3006 [facility] 5 [place] [address] documented as of this encounter Visit Diagnoses Not on filedocumented in this encounter Care Teams Table Keeper Relationship Specialty Start Date End Date Beni Nguyen MD 112 [facility] 110 [place] [address] PCP - General Internal Medicine 01/02/23 Beni Nguyen MD 112 [facility] 110 [place] [address] PCP - ACO Reach 01/12/23 Etsher Connolly, HEATHER [address] [place], [place] [address] Clinical Advocate Family Medicine 09/27/24 11/08/24 Anastasia Rayo LPN 112 [facility] 110 [place] [address] 11/08/24 documented as of this encounter
--- OUTSIDE RECORDS SUMMARY | 2025-05-26 09:59 | XMS_ITS | Encounter Summary ---
Author Organization [facility] Address [address] [place] [address] Care Team Providers Care Credit Underwriter Name Role Phone Beni Nguyen MD Primary Care Provider [phone] Beni Nguyen MD Unavailable [phone] Esther Connolly RN Unavailable [phone] Anastasia Rayo LPN Unavailable Encounter Details Date Type Department Care Team (Late st Contact Info) Description 07/26/2024 Abstract [facility] 112 [facility] [facility] 110 [place] [address] Beni Nguyen MD 112 [facility] 110 [place] [address] Social History Tobacco Use Types Packs/Day Years [...] 112 [facility] 120 [place] [address] Real Og DPM 3006 [facility] 5 [place] [address] documented as of this encounter Visit Diagnoses Not on filedocumented in this encounter Care Teams Credit Underwriter Relationship Specialty Start Date End Date Beni Nguyen MD 112 [facility] 110 [place] [address] PCP - General Internal Medicine 01/02/23 Beni Nguyen MD 112 [facility] 110 [place] [address] PCP - ACO Reach 01/12/23 Esther Connolly, HEATHER [address] [place], [place] [address] Clinical Advocate Family Medicine 09/27/24 11/08/24 Anastasia Rayo LPN 112 [facility] 110 [place] [address] 11/08/24 documented as of this encounter
--- OUTSIDE RECORDS SUMMARY | 2025-05-26 09:59 | XMS_ITS | Encounter Summary ---
Author Organization [facility] Address [address] [place] [address] Care Team Providers Care Warehouse Inventory Clerk Name Role Phone Beni Nguyen MD Primary Care Provider [phone] Beni Nguyen MD Unavailable [phone] Esther Connolly RN Unavailable Anastasia Rayo LPN Unavailable Encounter Details Date Type Department Care Team (Late st Contact Info) Description 09/11/2024 Abstract [facility] 112 [facility] [facility] 110 [place] [address] Beni Nguyen MD 112 [facility] 110 [place] [address] Social History Tobacco Use Types Packs/Day Years [...] Recorded Patient Health Questionnaire-2 Score 0 10/05/2023 [facility] Occupat ional [...] PODIATRY 112 [facility] 120 [place] [address] Real Og DPM 3006 [facility] 5 [place] [address] documented as of this encounter Visit Diagnoses Not on filedocumented in this encounter Care Teams Warehouse Inventory Clerk Relationship Specialty Start Date End Date Beni Nguyen MD 112 [facility] 110 [place] [address] PCP - General Internal Medicine 01/02/23 Beni Nguyen MD 112 [facility] 110 [place] [address] PCP - ACO Reach 01/12/23 Esther Connolly, HEATHER [address] [place], [place] [address] Clinical Advocate Family Medicine 09/27/24 11/08/24 Anastasia Rayo LPN 112 [facility] 110 [place] [address] 11/08/24 documented as of this encounter
--- OUTSIDE RECORDS SUMMARY | 2025-05-26 09:59 | XMS_ITS | Encounter Summary ---
Author Organization [facility] Address [address] [place] [address] Care Team Providers Care Physician Office Assistant Name Role Phone Beni Nguyen MD Primary Care Provider [phone] Beni Nguyen MD Unavailable [phone] Esther Connolly RN Unavailable Anastasia Rayo LPN Unavailable Encounter Details Date Type Department Care Team (Late st Contact Info) Description 09/11/2024 Abstract [facility] 112 [facility] [facility] 110 [place] [address] Beni Nguyen MD 112 [facility] 110 [place] [address] Social History Tobacco Use Types Packs/Day Years [...] ([facility] st Contact Info) Description 07/03/2025 2:40 PM EST Procedure Visit [facility] PODIATRY 112 [facility] 120 [place] [address] Real Og DPM 3006 [facility] 5 [place] [address] documented as of this encounter Visit Diagnoses Not on filedocumented in this encounter Care Teams Physician Office Assistant Relationship Specialty Start Date End Date Beni Nguyen MD 112 [facility] 110 [place] [address] PCP - General Internal Medicine 01/02/23 Beni Nguyen MD 112 [facility] 110 [place] [address] PCP - ACO Reach 01/12/23 Esther Connolly, HEATHER [address] [place], [place] [address] Clinical Advocate Family Medicine 09/27/24 11/08/24 Anastasia Rayo LPN 112 [facility] 110 [place] [address] 11/08/24 documented as of this encounter
--- OUTSIDE RECORDS SUMMARY | 2025-05-26 09:59 | XMS_ITS | Encounter Summary ---
Author Organization [facility] Address [address] [place] [address] Care Team Providers Care All Terrain Vehicle Racer Name Role Phone Beni Nguyen MD Primary Care Provider [phone] Beni Nguyen MD Unavailable [phone] Anastasia Rayo LPN Unavailable Encounter Details Date Type Department Care Team (Late st Contact Info) Description 01/23/2025 Abstract [facility] [address] [facility] 110 [place] [address] Beni Nguyen MD 112 [facility] 110 [place] [address] Social History Tobacco Use Types Packs/Day Years [...] [facility] Contact Info) Description 07/03/2025 2:40 PM EST Procedure Visit [facility] PODIATRY [address] [facility] 120 [place] [address] Real Og DPM 3006 [facility] 5 [place] [address] documented as of this encounter Visit Diagnoses Not on filedocumented in this encounter Care Teams All Terrain Vehicle Racer Relationship Specialty Start Date End Date Beni Nguyen MD [address] [facility] 110 [place] [address] PCP - General Internal Medicine 01/02/23 Beni Nguyen MD [address] [facility] 110 [place] [address] PCP - ACO Reach 01/12/23 Anastasia Rayo LPN 112 [facility] 110 [place] [address] 11/08/24 documented as of this encounter
--- OUTSIDE RECORDS SUMMARY | 2025-05-26 09:59 | XMS_ITS | Encounter Summary ---
Author Organization [facility] Address [address] [place] [address] Care Team Providers Care Health And Human Performance Professor Name Role Phone Beni Nguyen MD Primary Care Provider [phone] Beni Nguyen MD Unavailable [phone] Esther Connolly RN Unavailable Anastasia Rayo LPN Unavailable Encounter Details Date Type Department Care Team (Late st Contact Info) Description 09/11/2024 Abstract [facility] 112 [facility] [facility] 110 [place] [address] Beni Nguyen MD 112 [facility] 110 [place] [address] Social History Tobacco Use Types Packs/Day Years [...] Upcoming Encounters Date Type Department Care Team ([facility] st Contact Info) Description 07/03/2025 2:40 PM EST Procedure Visit [facility] PODIAT[facility] 112 [facility] 120 [place] [address] Real Og DPM 3006 [facility] 5 [place] [address] documented as of this encounter Visit Diagnoses Not on filedocumented in this encounter Care Teams Health And Human Performance Professor Relationship Specialty Start Date End Date Beni Nguyen MD 112 [facility] 110 [place] [address] PCP - General Internal Medicine 01/02/23 Beni Nguyen MD 112 [facility] 110 [place] [address] PCP - ACO Reach 01/12/23 Esther Connolly, HEATHER [address] [place], [place] [address] Clinical Advocate Family Medicine 09/27/24 11/08/24 Anastasia Rayo LPN 112 [facility] 110 [place] [address] 11/08/24 documented as of this encounter
--- OUTSIDE RECORDS SUMMARY | 2025-05-26 09:59 | XMS_ITS | Encounter Summary ---
Author Organization [facility] Address [address] [place] [address] Care Team Providers Care Tree Fruit And Nut Crops Farmer Name Role Phone Beni Nguyen MD Primary Care Provider [phone] Beni Nguyen MD Unavailable [phone] Esther Connolly RN Unavailable Anastasia Rayo LPN Unavailable Encounter Details Date Type Department Care Team (Late st Contact Info) Description 09/17/2024 Abstract [facility] 112 [facility] [facility] 110 [place] [address] Beni Nguyen MD 112 [facility] 110 [place] [address] Social History Tobacco Use Types Packs/Day Years [...] [facility] 112 [facility] 120 [place] [address] Real Og DPM 3006 [facility] 5 [place] [address] documented as of this encounter Visit Diagnoses Not on filedocumented in this encounter Care Teams Tree Fruit And Nut Crops Farmer Relationship Specialty Start Date End Date Beni Nguyen MD 112 [facility] 110 [place] [address] PCP - General Internal Medicine 01/02/23 Beni Nguyen MD 112 [facility] 110 [place] [address] PCP - ACO Reach 01/12/23 Esther Connolly, HEATHER [address] [place], [place] [address] Clinical Advocate Family Medicine 09/27/24 11/08/24 Anastasia Rayo LPN 112 [place] [facility] 110 [place] [address] 11/08/24 documented as of this encounter
--- OUTSIDE RECORDS SUMMARY | 2025-05-26 09:59 | XMS_ITS | Encounter Summary ---
Author Organization [facility] Address [address] [place] [address] Care Team Providers Care Associate Account Director Name Role Phone Beni Nguyen MD Primary Care Provider [phone] Beni Nguyen MD Unavailable [phone] Esther Connolly RN Unavailable [phone] Anastasia Rayo LPN Unavailable Encounter Details Date Type Department Care Team (Late st Contact Info) Description 09/19/2024 Abstract [facility] [place] [facility] 112 [facility] [facility] 110 [place] [address] Beni Nguyen MD 112 [facility] 110 [place] [address] Social History Tobacco Use Types Packs/Day Years [...] EST Procedure Visit [facility] PODIATRY 112 [facility] 120 [place] [address] Real Og DPM 3006 [facility] 5 [place] [address] documented as of this encounter Visit Diagnoses Not on filedocumented in this encounter Care Teams Associate Account Director Relationship Specialty Start Date End Date Beni Nguyen MD 112 [facility] 110 [place] [address] PCP - General Internal Medicine 01/02/23 Beni Nguyen MD 112 [facility] 110 [place] [address] PCP - ACO Reach 01/12/23 Esther Connolly, HEATHER [address] [place], [place] [address] Clinical Advocate Family Medicine 09/27/24 11/08/24 Anastasia aRyo LPN 112 [facility] 110 [place] [address] 11/08/24 documented as of this encounter
--- OUTSIDE RECORDS SUMMARY | 2025-05-26 09:59 | XMS_ITS | Encounter Summary ---
Author Organization [facility] Address [address] [place] [address] Care Team Providers Care Woodwork Salvage Inspector Name Role Phone Beni Nguyen MD Primary Care Provider [phone] Beni Nguyen MD Unavailable [phone] Esther Connolly RN Unavailable Anastasia Rayo LPN Unavailable Encounter Details Date Type Department Care Team (Late st Contact Info) Description 07/30/2024 Abstract [facility] [place] [facility] 112 [address] [facility] 110 [place] [address] Beni Nguyen MD 112 [facility] 110 [place] [address] Social History Tobacco Use Types Packs/Day Years [...] PODIATRY [address] [facility] 120 [place] [address] Real Og DPM 3006 [facility] 5 [place] [address] documented as of this encounter Visit Diagnoses Not on filedocumented in this encounter Care Teams Woodwork Salvage Inspector Relationship Specialty Start Date End Date Beni Nguyen MD 112 [facility] 110 [place] [address] PCP - General Internal Medicine 01/02/23 Beni Nguyen MD 112 [facility] 110 [place] [address] PCP - ACO Reach 01/12/23 Esther Connolly, HEATHER [address] [place], [place] [address] Clinical Advocate Family Medicine 09/27/24 11/08/24 Anastasia Rayo LPN 112 [place] [facility] 110 [place] [address] 11/08/24 documented as of this encounter
--- OUTSIDE RECORDS SUMMARY | 2025-05-26 09:59 | XMS_ITS | Encounter Summary ---
Author Organization [facility] Address [address] [place] [address] Care Team Providers Care Blood Bank Booking Clerk Name Role Phone Beni Nguyen MD Primary Care Provider Beni Nguyen MD Unavailable [phone] Esther Connolly RN Unavailable [phone] Anastasia Rayo LPN Unavailable Encounter Details Date Type Department Care Team (Late st Contact Info) Description 07/26/2024 Abstract [facility] 112 [facility] [facility] 110 [place] [address] Beni Nguyen MD 112 [facility] 110 [place] [address] Social History Tobacco Use Types Packs/Day Years [...] 112 [facility] 120 [place] [address] Real Og DPM 3006 [facility] 5 [place] [address] documented as of this encounter Visit Diagnoses Not on filedocumented in this encounter Care Teams Blood Bank Booking Clerk Relationship Specialty Start Date End Date Beni Nguyen MD 112 [facility] 110 [place] [address] PCP - General Internal Medicine 01/02/23 Beni Nguyen MD 112 [facility] 110 [place] [address] PCP - ACO Reach 01/12/23 Esther Connolly, HEATHER [address] [place], [place] [address] Clinical Advocate Family Medicine 09/27/24 11/08/24 Anastasia Rayo LPN 112 [place] [facility] 110 [place] [address] 11/08/24 documented as of this encounter
--- OUTSIDE RECORDS SUMMARY | 2025-05-26 09:59 | XMS_ITS | Encounter Summary ---
Author Organization [facility] Address [address] [place] [address] Care Team Providers Care Windshield Installer Name Role Phone Beni Nguyen MD Primary Care Provider [phone] Beni Nguyen MD Unavailable [phone] Esther Connolly RN Unavailable Anastasia Rayo LPN Unavailable Encounter Details Date Type Department Care Team (Late st Contact Info) Description 08/07/2024 Abstract [facility] [place] [facility] 112 [facility] [facility] 110 [place] [address] Beni Nguyen MD 112 [facility] 110 [place] [address] Social History Tobacco Use Types Packs/Day Years [...] Patient Health Questionnaire-2 Score 0 10/05/2023 [facility]at [facility] [...] 112 [facility] 120 [place] [address] Real Og DPM 3006 [facility] 5 [place] [address] documented as of this encounter Visit Diagnoses Not on filedocumented in this encounter Care Teams Windshield Installer Relationship Specialty Start Date End Date Beni Nguyen MD 112 [facility] 110 [place] [address] PCP - General Internal Medicine 01/02/23 Beni Nguyen MD 112 [facility] 110 [place] [address] PCP - ACO Reach 01/12/23 Esther Connolly, HEATHER [address] [place], [place] [address] Clinical Advocate Family Medicine 09/27/24 11/08/24 Anastasia Rayo LPN 112 [place] [facility] 110 [place] [address] 11/08/24 documented as of this encounter
--- OUTSIDE RECORDS SUMMARY | 2025-05-26 09:59 | XMS_ITS | Encounter Summary ---
Author Organization [facility] Address [address] [place] [address] Care Team Providers Care Outside Solar Sales Consultant Name Role Phone Beni Nguyen MD Primary Care Provider [phone] Beni Nguyen MD Unavailable [phone] Esther Connolly RN Unavailable [phone] Anastasia Rayo LPN Unavailable Encounter Details Date Type Department Care Team (Late st Contact Info) Description 07/31/2024 Abstract [facility] [place] [facility] 112 [address] [facility] 110 [place] [address] Beni Nguyen MD 112 [facility] 110 [place] [address] Social History Tobacco Use Types Packs/Day Years [...] Score 0 10/05/2023 [facility]at [facility] [...] ([facility] st Contact Info) Description 07/03/2025 2:40 PM EST Procedure Visit [facility] CI PODIATRY 112 [facility] 120 [place] [address] Real Og DPM 3006 [facility] 5 [place] [address] documented as of this encounter Visit Diagnoses Not on filedocumented in this encounter Care Teams Outside Solar Sales Consultant Relationship Specialty Start Date End Date Beni Nguyen MD 112 [facility] 110 [place] [address] PCP - General Internal Medicine 01/02/23 Beni Nguyen MD 112 [facility] 110 [place] [address] PCP - ACO Reach 01/12/23 Esther Connolly, HEATHER [address] [place], [place] [address] Clinical Advocate Family Medicine 09/27/24 11/08/24 Anastasia Rayo LPN 112 [place] [facility] 110 [place] [address] 11/08/24 documented as of this encounter
--- OUTSIDE RECORDS SUMMARY | 2025-05-26 09:59 | XMS_ITS | Encounter Summary ---
Author Organization [facility] Address [address] [place] [address] Care Team Providers Care Frame Straightener Name Role Phone Beni Nguyen MD Primary Care Provider [phone] Beni Nguyen MD Unavailable [phone] Esther Connolly RN Unavailable Anastasia Rayo LPN Unavailable Encounter Details Date Type Department Care Team (Late st Contact Info) Description 08/07/2024 Abstract [facility] [place] [facility] [address] [facility] 110 [place] [address] Beni Nguyen MD 112 [facility] 110 [place] [address] Social History Tobacco Use Types Packs/Day Years [...] [facility] st Contact Info) Description 07/03/2025 2:40 PM EST Procedure Visit [facility] 112 [facility] 120 [place] [address] Real Og DPM 3006 [facility] [place] [address] documented as of this encounter Visit Diagnoses Not on filedocumented in this encounter Care Teams Frame Straightener Relationship Specialty Start Date End Date Beni Nguyen MD 112 [facility] 110 [place] [address] PCP - General Internal Medicine 01/02/23 Beni Nguyen MD 112 [facility] 110 [place] [address] PCP - ACO Reach 01/12/23 Esther Connolly, HEATHER [address] [place], [place] [address] Clinical [facility]ocate Family Medicine 09/27/24 11/08/24 Anastasia Rayo LPN 112 [facility] 110 [place] [address] 11/08/24 documented as of this encounter
--- OUTSIDE RECORDS SUMMARY | 2025-05-26 09:59 | XMS_ITS | Encounter Summary ---
Author Organization [facility] Address [address] [place] [address] Care Team Providers Care Television News Producer Name Role Phone Beni Nguyen MD Primary Care Provider [phone] Beni Nguyen MD Unavailable [phone] Esther Connolly RN Unavailable [phone] Anastasia Rayo LPN Unavailable Encounter Details Date Type Department Care Team (Late st Contact Info) Description 07/26/2024 Abstract [facility] [place] [facility] [address] [facility] 110 [place] [address] Beni Nguyen MD 112 [facility] 110 [place] [address] Social History Tobacco Use Types Packs/Day Years [...] [facility] Contact Info) Description 07/03/2025 2:40 PM EST Procedure Visit [facility] 112 [facility] 120 [place] [address] Real Og DPM 3006 [facility] 5 [place] [address] documented as of this encounter Visit Diagnoses Not on filedocumented in this encounter Care Teams Television News Producer Relationship Specialty Start Date End Date Beni Nguyen MD 112 [facility] 110 [place] [address] PCP - General Internal Medicine 01/02/23 Beni Nguyen MD 112 [facility] 110 [place] [address] PCP - ACO Reach 01/12/23 Esther Connolly, HEATHER [address] [place], [place] [address] Clinical Advocate Family Medicine 09/27/24 11/08/24 Anastasia Rayo LPN 112 [facility] 110 [place] [address] 11/08/24 documented as of this encounter
--- OUTSIDE RECORDS SUMMARY | 2025-05-26 09:59 | XMS_ITS | Encounter Summary ---
Author Organization [facility] Address [address] [place] [address] Care Team Providers Care Cut In Worker Name Role Phone Beni Nguyen MD Primary Care Provider [phone] Beni Nguyen MD Unavailable [phone] Esther Connolly RN Unavailable Anastasia Rayo LPN Unavailable Encounter Details Date Type Department Care Team (Late st Contact Info) Description 07/29/2024 Abstract [facility] [place] [facility] [address] [facility] 110 [place] [address] Beni Nguyen MD 112 [facility] 110 [place] [address] Social History Tobacco Use Types Packs/Day Years [...] EST Procedure Visit [facility] 112 [facility] 120 [place] [address] Real Og DPM 3006 [facility] 5 [place] [address] documented as of this encounter Visit Diagnoses Not on filedocumented in this encounter Care Teams Cut In Worker Relationship Specialty Start Date End Date Beni Nguyen MD 112 [facility] 110 [place] [address] PCP - General Internal Medicine 01/02/23 Beni Nguyen MD 112 [facility] 110 [place] [address] PCP - ACO Reach 01/12/23 Esther Connolly, HEATHER [address] [place], [place] [address] Clinical Advocate Family Medicine 09/27/24 11/08/24 Anastasia Rayo LPN 112 [place] [facility] 110 [place] [address] 11/08/24 documented as of this encounter
--- OUTSIDE RECORDS SUMMARY | 2025-05-26 09:59 | XMS_ITS | Encounter Summary ---
Author Organization [facility] Address [address] [place] [address] Care Team Providers Care Operations And Intelligence Assistant Name Role Phone Beni Nguyen MD Primary Care Provider [phone] Beni Nguyen MD Unavailable [phone] Esther Connolly RN Unavailable [phone] Anastasia Rayo LPN Unavailable Encounter Details Date Type Department Care Team (Late st Contact Info) Description 08/01/2024 Abstract [facility] [place] [facility] [address] [facility] 110 [place] [address] Beni Nguyen MD 112 [facility] 110 [place] [address] Social History Tobacco Use Types Packs/Day Years [...] CI PODIATRY 112 [facility] 120 [place] [address] Real Og DPM 3006 [facility] 5 [place] [address] documented as of this encounter Visit Diagnoses Not on filedocumented in this encounter Care Teams Operations And Intelligence Assistant Relationship Specialty Start Date End Date Beni Nguyen MD 112 [facility] 110 [place] [address] PCP - General Internal Medicine 01/02/23 Beni Nguyen MD 112 [facility] 110 [place] [address] PCP - ACO Reach 01/12/23 Esther Connolly, HEATHER [address] [place], [place] [address] Clinical Advocate Family Medicine 09/27/24 11/08/24 Anastasia Rayo LPN 112 [facility] 110 [place] [address] 11/08/24 documented as of this encounter
--- OUTSIDE RECORDS SUMMARY | 2025-05-26 09:59 | XMS_ITS | Encounter Summary ---
Author Organization [facility] Address [address] [place] [address] Care Team Providers Care Oncology Coordinator Name Role Phone Beni Nguyen MD Primary Care Provider Beni Nguyen MD Unavailable [phone] Anastasia Rayo LPN Unavailable Encounter Details Date Type Department Care Team (Late st Contact Info) Description 02/05/2025 Abstract [facility] [place] [facility] [address] [facility] 110 [place] [address] Beni Nguyen MD 112 [facility] 110 [place] [address] Social History Tobacco Use Types Packs/Day Years [...] Visit [facility] [address] [facility] 120 [place] [address] Real Og DPM 3006 [facility] 5 [place] [address] documented as of this encounter Visit Diagnoses Not on filedocumented in this encounter Care Teams Oncology Coordinator Relationship Specialty Start Date End Date Beni Nguyen MD [address] [facility] [address] [place] [address] PCP - General Internal Medicine 01/02/23 Beni Nguyen MD [address] [facility] 110 [place] [address] PCP - ACO Reach 01/12/23 Anastasia Rayo LPN 112 [facility] 110 [place] [address] 11/08/24 documented as of this encounter
--- OUTSIDE RECORDS SUMMARY | 2025-05-26 09:59 | XMS_ITS | Encounter Summary ---
Author Organization [facility] Address [address] [place] [address] Care Team Providers Care Marking Machine Tender Name Role Phone Beni Nguyen MD Primary Care Provider [phone] Beni Nguyen MD Unavailable [phone] Esther Connolly RN Unavailable Anastasia Rayo LPN Unavailable Encounter Details Date Type Department Care Team (Late st Contact Info) Description 08/01/2024 Abstract [facility] [place] [facility] 112 [facility] 110 [place] [address] Beni Nguyen MD 112 [facility] 110 [place] [address] Social History Tobacco Use Types Packs/Day Years [...] 10/05/2023 [facility] [...] 112 [facility] 120 [place] [address] Real Og DPM 3006 [facility] 5 [place] [address] documented as of this encounter Visit Diagnoses Not on filedocumented in this encounter Care Teams Marking Machine Tender Relationship Specialty Start Date End Date Beni Nguyen MD 112 [facility] 110 [place] [address] PCP - General Internal Medicine 01/02/23 Beni Nguyen MD 112 [facility] 110 [place] [address] PCP - ACO Reach 01/12/23 Esther Connolly, HEATHER [address] [place], [place] [address] Clinical Advocate Family Medicine 09/27/24 11/08/24 Anastasia Rayo LPN 112 [place] [facility] 110 [place] [address] 11/08/24 documented as of this encounter
--- OUTSIDE RECORDS SUMMARY | 2025-05-26 09:59 | XMS_ITS | Encounter Summary ---
Author Organization [facility] Address [address] [place] [address] Care Team Providers Care Truck Despatcher Name Role Phone Beni Nguyen MD Primary Care Provider [phone] Beni Nguyen MD Unavailable [phone] Esther Connolly RN Unavailable Anastasia Rayo LPN Unavailable Encounter Details Date Type Department Care Team (Late st Contact Info) Description 10/11/2023 Abstract [facility] [place] [facility] [address] [facility] 110 [place] [address] Beni Nguyen MD 112 [facility] 110 [place] [address] Social History Tobacco Use Types Packs/Day Years [...] 0 10/05/2023 [facility] - [facility]ational Stress Questionnaire Answer Date [...] CI PODIATRY [address] [facility] 120 [place] [address] Real Og, DPM 3006 [facility] 5 [place] [address] documented as of this encounter Visit Diagnoses Not on filedocumented in this encounter Care Teams Truck Despatcher Relationship Specialty Start Date End Date Beni Nguyen MD [address] [facility] 110 [place] [address] PCP - General Internal Medicine 01/02/23 Beni Nguyen MD [address] [facility] 110 [place] [address] PCP - ACO Reach 01/12/23 Esther Connolly, RN [address] [place] [address] Clinical Advocate Family Medicine 09/27/24 11/08/24 Anastasia Rayo LPN [address] [address] 11/08/24 documented as of this encounter
--- OUTSIDE RECORDS SUMMARY | 2025-05-26 09:59 | XMS_ITS | Encounter Summary ---
Author Organization [facility] Address [address] [place] [address] Care Team Providers Care Learning Support Resource Room Teacher Name Role Phone Beni Nguyen MD Primary Care Provider [phone] Beni Nguyen MD Unavailable [phone] Eshter Connolly RN Unavailable [phone] Anastasia Rayo HOLISTIC PULSER Unavailable Encounter Details Date Type Department Care Team (Late Contact Info) Description 12/23/2022 Abstract [facility] [place] [facility] [address] [facility] 110 [place] [address] Beni Nguyen MD 112 [facility] 110 [place], [place] [address] Social History Tobacco Use Types Packs/Day Years [...] Visit [facility] [address] [facility] 120 [place] [address] Real Og, DPMarcial 3006 [facility] 5 [place] [address] documented as of this encounter Visit Diagnoses Not on filedocumented in this encounter Care Teams Learning Support Resource Room Teacher Relationship Specialty Start Date End Date Beni Nguyen MD [address] [facility] 110 [place] [address] PCP - General Internal Medicine 01/02/23 Beni Nguyen MD [address] [facility] 110 [place] [address] PCP - ACO Reach 01/12/23 Esther Connolly, HEATHER [address] [place] [address] Clinical Advocate Family Medicine 09/27/24 11/08/24 Anastasia Rayo LPN [address] [facility] 110 [place] [address] 11/08/24 documented as of this encounter
--- OUTSIDE RECORDS SUMMARY | 2025-05-26 09:59 | XMS_ITS | Encounter Summary ---
Author Organization [facility] Address [address] [place] [address] Care Team Providers Care Clinical Statistics Manager Name Role Phone Beni Nguyen MD Primary Care Provider [phone] Beni Nguyen MD Unavailable [phone] Esther Connolly RN Unavailable Anastasia Rayo LPN Unavailable Encounter Details Date Type Department Care Team (Late st Contact Info) Description 07/29/2024 Abstract [facility] [place] [facility] [address] [facility] 110 [place] [address] Beni Nguyen MD 112 [facility] 110 [place] [address] Social History Tobacco Use Types Packs/Day Years [...] Recorded Patient Health Questionnaire-2 Score 0 10/05/2023 [facility] - [...] CI PODIATRY 112 [facility] 120 [place] [address] Real Og DPM 3006 [facility] 5 [place] [address] documented as of this encounter Visit Diagnoses Not on filedocumented in this encounter Care Teams Clinical Statistics Manager Relationship Specialty Start Date End Date Beni Nguyen MD 112 [facility] 110 [place] [address] PCP - General Internal Medicine 01/02/23 Beni Nguyen MD 112 [facility] 110 [place] [address] PCP - ACO Reach 01/12/23 Esther Connolly, HEATHER [address] [place], [place] [address] Clinical Advocate Family Medicine 09/27/24 11/08/24 Anastasia Rayo LPN 112 [facility] 110 [place] [address] 11/08/24 documented as of this encounter
--- OUTSIDE RECORDS SUMMARY | 2025-05-26 09:59 | XMS_ITS | Encounter Summary ---
Author Organization [facility] Address [address] [place] [address] Care Team Providers Care Box Tender Name Role Phone Beni Nguyen MD Primary Care Provider [phone] Beni Nguyen MD Unavailable [phone] Esther Connolly RN Unavailable [phone] Anastasia Rayo LPN Unavailable Encounter Details Date Type Department Care Team (Late st Contact Info) Description 10/26/2023 Abstract [facility] [place] [facility] [address] [facility] 110 [place] [address] Beni Nguyen MD 112 [facility] 110 [place] [address] Social History Tobacco Use Types Packs/Day Years [...] Questionnaire-2 Score 0 10/05/2023 [facility] Occupational Stress Questionnaire Answer [...] CI PODIATRY [address] [place] [address] [place] [address] Real Og, DPM 3006 [facility] 5 [place] [address] documented as of this encounter Visit Diagnoses Not on filedocumented in this encounter Care Teams Box Tender Relationship Specialty Start Date End Date Beni Nguyen MD [address] [facility] 110 [place] [address] PCP - General Internal Medicine 01/02/23 Beni Nguyen MD [address] [facility] 110 [place] [address] PCP - ACO Reach 01/12/23 Esther Connolly, RN [address] [place] [address] Clinical Advocate Family Medicine 09/27/24 11/08/24 Anastasia Rayo LPN [address] [address] 11/08/24 documented as of this encounter
--- OUTSIDE RECORDS SUMMARY | 2025-05-26 09:59 | XMS_ITS | Encounter Summary ---
Author Organization [facility] Address [address] [place] [address] Care Team Providers Care Compressor Service Technician Name Role Phone Beni Nguyen MD Primary Care Provider [phone] Beni Nguyen MD Unavailable [phone] Esther Connolly RN Unavailable Anastasia Rayo LPN Unavailable Encounter Details Date Type Department Care Team (Late st Contact Info) Description 08/07/2024 Abstract [facility] [place] [facility] [address] [facility] 110 [place] [address] Beni Nguyen MD 112 [facility] 110 [place] [address] Social History Tobacco Use Types Packs/Day Years [...] CI PODIATRY 112 [facility] 120 [place] [address] Real Og DPM 3006 [facility] 5 [place] [address] documented as of this encounter Visit Diagnoses Not on filedocumented in this encounter Care Teams Compressor Service Technician Relationship Specialty Start Date End Date Beni Nguyen MD 112 [facility] 110 [place] [address] PCP - General Internal Medicine 01/02/23 Beni Nguyen MD 112 [facility] 110 [place] [address] PCP - ACO Reach 01/12/23 Esther Connolly, HEATHER [address] [place], [place] [address] Clinical Advocate Family Medicine 09/27/24 11/08/24 Anastasia Rayo LPN 112 [facility] 110 [place] [address] 11/08/24 documented as of this encounter
--- OUTSIDE RECORDS SUMMARY | 2025-05-26 10:00 | XMS_ITS | Encounter Summary ---
Author Organization [facility] Address [address] [place] [address] Care Team Providers Care Enterprise Systems Architect Name Role Phone Beni Nguyen MD Primary Care Provider [phone] Beni Nguyen MD Unavailable [phone] Esther Connolly RN Unavailable Anastasia Rayo LPN Unavailable Encounter Details Date Type Department Care Team (Late st Contact Info) Description 05/10/2023 Orders Only [facility] [place] [facility] [address] [facility] 110 [place] [address] A, Unknown Practice 1300 [place] [address] Social History Tobacco Use Types [...] CI PODIATRY 112 [facility] 120 [place] [address] Real Og DPM 3006 [facility] 5 [place] [address] documented as of this encounter Procedures Procedure [...] filedocumented in this encounter Care Teams Enterprise Systems Architect Relationship Specialty Start Date End Date Beni Nguyen MD [address] [facility] 110 [place] [address] PCP - General Internal Medicine 01/02/23 Beni Nguyen MD [address] [facility] 110 [place] [address] PCP - ACO Reach 01/12/23 Esther Connolly, RN [address] [place] [address] Clinical Advocate Family Medicine 09/27/24 11/08/24 Anastasia Rayo LPN [address] [facility] 110 [place] [address] 11/08/24 documented as of this encounter
--- OUTSIDE RECORDS SUMMARY | 2025-05-26 10:00 | XMS_ITS | Encounter Summary ---
Author Organization [facility] Address [address] [place] [address] Care Team Providers Care Html Developer Name Role Phone Beni Nguyen MD Primary Care Provider [phone] Beni Nguyen MD Unavailable [phone] Esther Connolly RN Unavailable Anastasia Rayo LPN Unavailable Encounter Details Date Type Department Care Team (Late st Contact Info) Description 03/14/2023 Orders Only [facility] [place] [facility] [address] [facility] 110 [place] [address] Leela Cherry, MASSAGE COORDINATOR 112 [place] [facility] 110 [place], [place] [address] Social History Tobacco Use Types Packs/Day Years [...] PODIATRY 112 [facility] 120 [place] [address] Real Og DPM 4316 [facility] 5 [place] [address] documented as of this encounter Procedures Procedure Name Priority Date/Time Associated Diagnosis Comments HOME SLEEP TEST Routine 03/10/2023 9:21 AM EDT documented in this encounter Results * Home sleep test (03/10/2023 9:21 AM EDT) us Leela Cherry MASSAGE COORDINATOR SLEEP CENTER ORDERABLES Julianna l Result documented in this encounter Visit Diagnoses Not on filedocumented in this encounter Care Teams Html Developer Relationship Specialty Start Date End Date Beni Nguyen MD 112 [place] [facility] 110 [place] [address] PCP - General Internal Medicine 01/02/23 Beni Nguyen MD 112 [place] [facility] 110 [place] [address] PCP - ACO Reach 01/12/23 Esther Connolly, HEATHER [address] [place] [address] Clinical Advocate Family Medicine 09/27/24 11/08/24 Anastasia Rayo LPN [address] [place] [address] [address] 11/08/24 documented as of this encounter
--- OUTSIDE RECORDS SUMMARY | 2025-05-26 10:00 | XMS_ITS | Encounter Summary ---
Author Organization [facility] Address [address] [place] [address] Care Team Providers Care Gelatin Plant Supervisor Name Role Phone Beni Nguyen MD Primary Care Provider [phone] Beni Nguyen MD Unavailable [phone] Esther Connolly RN Unavailable [phone] Anastasia Rayo LPN Unavailable Encounter Details Date Type Department Care Team (Late st Contact Info) Description 03/28/2023 Abstract [facility] [place] [facility] [address] [facility] 110 [place] [address] Beni Nguyen MD 112 [facility] 110 [place] [address] Social History Tobacco Use Types Packs/Day Years [...] PODIATRY [address] [facility] 120 [place] [address] Real Og, DPM 3006 [facility] 5 [place] [address] documented as of this encounter Visit Diagnoses Not on filedocumented in this encounter Care Teams Gelatin Plant Supervisor Relationship Specialty Start Date End Date Beni Nguyen MD [address] [place] [facility] 110 [place] [address] PCP - General Internal Medicine 01/02/23 Beni Nguyen MD [address] [facility] 110 [place] [address] PCP - ACO Reach 01/12/23 Esther Connolly RN [address] [place], [place] [address] Clinical Advocate Family Medicine 09/27/24 11/08/24 Anastasia Rayo LPN [address] [address] 11/08/24 documented as of this encounter
--- OUTSIDE RECORDS SUMMARY | 2025-05-26 10:00 | XMS_ITS | Patient Health Record ---
Author Organization [facility] Address [address] [place] [address] Care Team Providers Care Bed Bug Exterminator Name Role Phone Wilton Kramer Unavailable [phone] Reason For Referral No Information Problems Problem Type SNOMED Code ICD Code Onset Dates Problem Status W/U Status Risk Notes Problem [id number] Primary osteoarthritis of left knee (M17.12) Active confirmed Plan Of Treatment Pending Test Test Name Order Date MRI : Knee W/O Contrast Left - 15344 Home PT 05/14/2024 [facility]- PT/OT EVAL AND TREAT 3X/WEEK FOR 6 WEEKS 03/13/2024 Insurance Providers Payer Name Payer Address Payer Phone Subscriber Number Group Number Insured Name Patient Relationship to Insured Coverage Start Date Coverage End [place] [address] [place] [address] [id number] TAURUS GARCIA Self - patient is the insured [facility] SUPPLE[facility] [address] [place] [address] [phone] [id number] TAURUS GARCIA Self - patient is the insured
--- OUTSIDE RECORDS SUMMARY | 2025-05-26 10:00 | XMS_ITS | Encounter Summary ---
Author Organization [facility] Address [address] [place] [id number] Care Team Providers Care Dictionary Editor Name Role Phone Patrick ARMENTA MD, Beni Hamlin Primary Care Provider [phone] Source Comments In the event this information is protected by the Federal Confidentiality of Alcohol and Drug AbusePatient Records regulations: The Federal rules restrict any use of the information to criminally investigate or prosecute any alcohol or drug abuse patient.[facility] Encounter Details Date Type Department Care Team (Late st Contact Info) Description 2023 Lab Requisition [facility] [address] [place] [address] Ivan Barnhart MD [address] [place] [address] Person encountering health services to consult on [...] EST) Case Report Surgical Pathology Report Case: [id number] Authorizing Provider: Ivan Barnhart MD Collected: 2023 09:46 AM Ordering Location: [facility] Received: 2023 09:46 AM [facility] Pathologist: Olivier Mina MD Specimen: SLIDE(S), 2 SLIDES [id number] 2023 12:15 PM EST [facility] FINAL DIAGNOSIS [facility]; Robert [place], [place] ([id number], 09/14/23) A. Urinary bladder, biopsy: - Benign nephrogenic adenoma. JKM 2023 2023 12:15 PM EST [facility] at 1215 EST Diagnosis Comment Thank you for allowing me to review this bladder lesion from an 78-year-old man. 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 2023 12:15 PM EST [facility] Clinical History CONSULT REQUESTED 2023 12:15 PM EST [facility] Performing Lab Diagnostic interpretation performed at [facility], [address] [place] [address]# [id number] Rotary Derrick Operator: Jaylan Mcfadden M.D. 2023 12:15 PM EST [facility] Blocks or Slides MICROSCOPE SLIDE / Unknown 2023 9:46 AM EST 2023 9:46 AM EST us Ivan Barnhart MD SURGICAL PATHOLOGY Final Result [facility] [address] [place] [address] [address] [place] [address], documented in this encounter Visit Diagnoses Diagnosis Person encountering health services to consult on behalf of another person Other person consulting on behalf of another person documented in this encounter Care Teams Dictionary Editor Relationship Specialty Start Date End Date Beni Nguyen II, MD [address] [facility] [address] [place] [id number] PCP - General Internal Medicine 12/05/16 documented as of this encounter
--- OUTSIDE RECORDS SUMMARY | 2025-05-26 10:00 | XMS_ITS | Encounter Summary ---
Author Organization [facility] Address [address] [place] [address] Care Team Providers Care Destination Coordinator Name Role Phone Beni Nguyen MD Primary Care Provider Beni Nguyen MD Unavailable [phone] Esther Connolly RN Unavailable Anastasia Rayo LPN Unavailable Encounter Details Date Type Department Care Team (Late st Contact Info) Description 10/09/2024 Abstract [facility] [address] [facility] 110 [place] [address] Beni Nguyen MD 112 [facility] 110 [place] [address] Social History Tobacco Use Types Packs/Day Years [...] PODIATRY 112 [facility] 120 [place] [address] Real Og DPM 3006 [facility] 5 [place] [address] documented as of this encounter Visit Diagnoses Not on filedocumented in this encounter Care Teams Destination Coordinator Relationship Specialty Start Date End Date Beni Nguyen MD 112 [facility] 110 [place] [address] PCP - General Internal Medicine 01/02/23 Beni Nguyen MD 112 [facility] 110 [place] [address] PCP - ACO Reach 01/12/23 Esther Connolly, HEATHER [address] [place], [place] [id number] Clinical Advocate Family Medicine 09/27/24 11/08/24 Anastasia Rayo LPN [address] [place] [facility] 110 [place] [address] 11/08/24 documented as of this encounter
--- OUTSIDE RECORDS SUMMARY | 2025-05-26 10:00 | XMS_ITS | Encounter Summary ---
Author Organization [facility] Address [address] [place] [address] Care Team Providers Care Fuel Cell Technician Name Role Phone Beni Nguyen MD Primary Care Provider [phone] Beni Nguyen MD Unavailable [phone] Esther Connolly RN Unavailable Anastasia Rayo LPN Unavailable Encounter Details Date Type Department Care Team (Late st Contact Info) Description 09/24/2024 Abstract [facility] [address] [facility] [address] [place] [address] Beni Nguyen MD 112 [facility] 110 [place] [address] Social History Tobacco Use Types Packs/Day Years [...] Upcoming Encounters Date Type Department Care Team ([facility] st Contact Info) Description 07/03/2025 2:40 PM EST Procedure Visit [facility] PODIATRY 112 [facility] 120 [place] [address] Real Og DPM 3006 [facility] 5 [place] [address] documented as of this encounter Visit Diagnoses Not on filedocumented in this encounter Care Teams Fuel Cell Technician Relationship Specialty Start Date End Date Beni Nguyen MD 112 [facility] [address] [place] [address] PCP - General Internal Medicine 01/02/23 Beni Nguyen MD 112 [facility] 110 [place] [address] PCP - ACO Reach 01/12/23 Esther Connolly, HEATHER [address] [place], [place] [id number] Clinical Advocate Family Medicine 09/27/24 11/08/24 Anastasia Rayo LPN 112 [place] [facility] 110 [place] [address] 11/08/24 documented as of this encounter
--- OUTSIDE RECORDS SUMMARY | 2025-05-26 10:00 | XMS_ITS | Encounter Summary ---
Author Organization [facility] Address [address] [place] [address] Care Team Providers Care Marine Cargo Surveyor Name Role Phone Beni Nguyen MD Primary Care Provider [phone] Bein Nguyen MD Unavailable [phone] Esther Connolly RN Unavailable [phone] Anastasia Rayo LPN Unavailable Encounter Details Date Type Department Care Team (Late st Contact Info) Description 09/30/2024 Abstract [facility] [address] [facility] [address] [place] [address] Beni Nguyen MD 112 [facility] 110 [place] [address] Social History Tobacco Use Types Packs/Day Years [...] [facility] POD[facility]AT[facility] 112 [facility] 120 [place] [address] Real Og DPM 3006 [facility] 5 [place] [address] documented as of this encounter Visit Diagnoses Not on filedocumented in this encounter Care Teams Marine Cargo Surveyor Relationship Specialty Start Date End Date Beni Nguyen MD 112 [facility] [address] [place] [address] PCP - General Internal Medicine 01/02/23 Beni Nguyen MD 112 [facility] 110 [place] [address] PCP - ACO Reach 01/12/23 Esther Connolly, HEATHER [address] [place], [place] [phone] Clinical Advocate Family Medicine 09/27/24 11/08/24 Anastasia Rayo LPN 112 [place] [facility] 110 [place] [address] 11/08/24 documented as of this encounter
--- OUTSIDE RECORDS SUMMARY | 2025-05-26 10:00 | XMS_ITS | Clinical Summary ---
Author Organization [facility] Address [address] [place], [place] [id number] Care Team Providers Care Steam Cleaner Name Role Phone Patrick ARMENTA MD, Beni Hamlin Primary Care Provider [phone] Allergies No known active allergies Medications pyridostigmine [...] furosemide (LASIX) 20 mg tablet 03/22/2022 Active [place]-3 Fatty Acids, FISH OIL, 360-1,200 mg cap [...] 75+ series) 2018 Advance Directive Discussion 08/21/2024 Covid-19 Vaccine (4 - 2024-2 6 season) 2025 05/25/2021, 11/10/2020, 10/19/2020 Influenza Vaccine (#1) 2025 1, 05/19/2021, 05/06/2020, Additional history exists Diabetes Screening 04/27/2025 04/27/2022, 1 09/07/2020, 07/29/2020, Additional history exists Pneumococcal Vaccine: 50+ Completed 2017, 10/26/2015, 10/19/2004 Insurance MEDICARE [id number] Care Teams Steam Cleaner Relationship Specialty Start Date End Date Beni Nguyen II, MD [address] [place] [address] PCP - General Internal Medicine 12/05/16
--- OUTSIDE RECORDS SUMMARY | 2025-05-26 10:01 | XMS_ITS | CCD ---
Author Organization [facility] [employer] Care Team Providers Care Head Setter Name Role Phone OLIVIA HALL Unavailable Unavailable NO FAMILY DOCTOR, NO FAMILY DOCTOR Unavailable Unavailable BALTAZAR LÓPEZ Unavailable Unavailable NO FAMILY DOCTOR, NO FAMILY DOCTOR Unavailable Unavailable KOMAL SCHAFFER Primary Care Physician [phone] AUTUMN PIMENTEL, DR YOKO Hair Consulting Unavailzuly [...] Unavailable Komal Schaffer II Primary Care Provider Komal Schaffer II Primary Care Provider GEOVANY Schaffer Primary Care Provider MD Ivan Barnhart Attending Provider GEOVANY Schaffer Primary Care Provider MD Ivan Barnhart Attending Provider [phone] Yoko Leyva Attending Unavailable Leyva, Yoko L [...] Unavailable Komal Schaffer MD Primary Care Provider KOMAL SCHAFFER Primary Care Unavailable SANTACROCE, LORRI [...] Other Provider MÓNICA Henning Other Provider ZACH Tamayo-BUSINESS TECHNOLOGY ANALYST-C Mookie Nichols Other Provider MD Silvestre Grover Other Provider ZACH Armstrong Other Provider MD Lexy Chappell Other Provider MD Stanley Burt Other Provider [phone] MD Rhonda Rawls Other Provider DO Colten Xavier Other Provider [phone] MD Sudhakar Gross Other Provider [phone] MD Eriberto Yang Other Provider MD Jamel Noe Other Provider DO Dejuan Og Other Provider MD Chau Lara Attending Provider Schaffer II, Dr. Komal Mckeon [facility] [place] vailable Schaffer II, Dr. Komal Mckeon [facility] [place] Schaffer II, Dr. Komal Mckeon [facility] [place] Schaffer II, Dr. Komal Mckeon Primary [facility] [place] Leyva, Ms. Willy Christina Hanley Attending Unavai lable Leyva, Ms. Willy Hanley Referring Unavai lable Kiko, Dr. Baltazar Laws Referring Unava ilable Schaffer II, Dr. Komal Mckeon [facility] [place] vailable Kiko, Dr. Baltazar Laws Attending Unava ilable [facility] MD Silvestre Grover Admit Provider MD Silvestre Grover Attending Provider [phone] HEATHER Potter Other Provider Unavailable HEAHTER Mendoza Other Provider Unavailable HEATHER Lo Other [...] MD Cuong Dos Santos Other Provider Ana, LETTERPRESS SETTER-C Candida Hickman Other Provider MD Kushal [...] Unavailable Sarbjit II Komal Primary Care Provider MD Eriberto Leyva Emergency Provider Sarbjit II Komal Primary Care Provider DO Dg Jacobson Emergency Provider Unavai marvin Horne DO Mateo Admit Provider DO Ozzie Mateo Attending Provider DO Jamel Packer Other Provider MD Abi Biswas Other Provider [phone] MD Silvestre Grover Other Provider MD Silvestre Grover Admit Provider MD Silvestre Grover Attending Provider Sarbjit II, Komal Primary Care Provider Dg Jacobson DO Emergency Provider Unavai marvin Horne DO, Mateo Admit Provider Ozzie GARCIA Mateo Attending Provider [phone] Silvestre Grover MD Other Provider Jamel Packer [...] Other Provider Umesh BRIDGES, Ubaldo Other Provider [phone] Ozzie GARCIA Mateo Other Provider Anette BRIDGES, Tyson Other Provider [phone] Marsha Fritz MD Other Provider Stevan GARCIA, Danie Other Provider Barry BRIDGES, Keaton Other Provider Unavailable Sam SERRANO, Meera Other Provider Reece BRIDGES, Eliezer Other Provider Daya BRIDGES, Dustin Other Provider Ute Colvin MD Other Provider Chau Lara MD Other Provider Ella GARCIA, Danie Other Provider Isaac BRIDGES, Chetan Other Provider Cuong Dos Santos MD Other Provider Ana LETTERPRESS SETTER-C, Candida Hickman Other Provider Arjun SERRANO, [...] Other Provider Queenie Shepherd APRN Other Provider Danni BRIDGES, Suraj Other Provider Komal Albright MD Other Provider Cabral DO, Cliff Kaufman Other Provider [phone] Lauri GARCIA, Иван Other Provider Edward BRIDGES, Bharathi Garcia Other Provider Casper BRIDGES, Vince Sewell Other Provider Nikole Jaeger APRN Other Provider Kenyon BRIDGES, Kaz Other Provider Kameron BRIDGES, Kamaljit Other Provider Inga ROMERO, Mariana Other Provider Unavailable Juli Thomas APRN Emergency Provider Danie Jaramillo DO Admit Provider Danie Jaramillo DO Attending Provider Komal Schaffer II Primary Care Provider [phone] Dg Jacobson DO Emergency Provider Unavai Mateo Alexander DO Admit Provider Mateo Horne DO Attending Provider Silvestre Grover MD Other Provider Jamel Packer DO Other Provider bAi Biswas MD Other Provider Silvestre Grover MD Admit Provider Silvestre Grover MD Attending Provider Tariq ROMERO, Libby Other Provider Unavailable Kelly ROMERO, Melva Other Provider Unavailable Rocio Renner RN Other Provider Unavailable Chayito Leone RN Other Provider Unavailable Alem Hinds RN Other Provider Unavailable Kevin Leo MD Other Provider Meri Blanco DO Other Provider [phone] Ubaldo Calvo MD Other Provider Mateo Horne DO Other Provider Anette BRIDGES, Tyson Other Provider [phone] Marsha [...] Provider Raya BRIDGES, Cuong Other Provider Ana LETTERPRESS SETTER-C, Candida Hickman Other Provider Arjun SERRANO, [...] Albright MD Other Provider Cabral DO, Cliff T Other Provider Иван Carreon DO Other Provider Edward BRIDGES, Bharathi Garcia Other Provider Vince Shirley MD Other Provider [phone] Nikole Jaeger APRN Other Provider [phone] Kenyon BRIDGES, Kaz Other Provider Kameron BRIDGES, Kamaljit Other Provider Inga ROMERO, Mariana Other Provider Unavailable Juli Thomas APRN Emergency Provider [phone] Danie Jaramillo DO Admit Provider [phone] Danie Jaramillo DO Attending Provider Kameron BRIDGES, Kamaljit Admit Provider Kaz Prescott MD Attending Provider Gucci Jacques MD Other Provider Peyman Hall DO Other Provider Bruce BRIDGES, Joseline Friedman Emergency Provider Denzel Zamora MD Admit Provider Denzel Zamora MD Attending Provider Mohsen ROMERO, Esther Unavailable Girma POMPA, Anastasia Unavailable Unavailable BALTAZAR HOOVER Attending Unavailable BALTAZAR HOOVER Referring Unavailable KOMAL SCHAFFER Primary Care Unavailable WILLY LEYVA Referring Unavailable KOMAL SCHAFFER Primary Care Unavailable WILLY LEYVA Attending Unavailable KOMAL SCHAFFER Primary Care Unavailable WILLY LEYVA Referring Unavailable KOMAL SCHAFFER Primary Care Unavailable WILLY LEYVA Attending Unavailable WILLY LEYVA Referring Unavailable KOMAL SCHAFFER Primary Care Unavailable Komal Schaffer II Primary Care Provider Kathleen Parker APRN Emergency Provider Jarret Garza MD Admit Provider Jarret Garza MD Attending Provider Jamel Packer DO Other Provider Jarret Garza MD Other Provider Jamel Packer DO Attending Provider Girma POMPA Anastasia Unavailable Jamel Packer Consulting Unavailable Denzel Zamora Attending Unavailable Denzel Zamora Admitting Unavailable SchafferKomal Primary Care Unavailable Gucci Jacques Consulting Unavailable Schaffer Komal Primary Care Unavailable Kaz Prescott Attending Unavailable Kamaljit Melo Admitting Unavailable Peyman Hall Consulting Unavailable Jamel Pacekr Consulting Unavailable Jarret Garza Attending Unavailable Jarret Garza Admitting Unavailable Komal Schaffer Primary Care Unavailable Komal Schaffer Primary Care Unavailable Jamel Packer Consulting Unavailable Danie Jaramillo Attending Unavailable Ella, Danie Admitting Unavailable Komal Schaffer Primary Care Unavailable [...] Manuel Díaz Consulting Unavailable Kushal Vizcarra Consulting Unavailab Torsten Cabrera Consulting Unavailable Dudley Leon Consulting Unavailable Mo Bauer Consulting Unavailable Elizabeth Markus Consulting Unavailable Sofia Martinez Consulting Unavailable Zia Duncan Consulting Unavailable Zachary Susanne Consulting Unavailable Dru Reveles Consulting Unavailable Daromar, Obaydah M Consulting Unavailable Yuki Leyva Consulting Unavailable Queenie Shepherd Consulting Unavailable Suraj Razo Consulting Unavailable Komal Albright Consulting Unavailable Cliff Cabral Consulting Unavailable Иван Carreon Consulting Unavailable Bharathi Leon Consulting Unavailable Vince Shirley Consulting Unava ilable Borisofan, Nikole Consulting Unavailable Kaz Prescott Consulting Unavailable Kamaljit [...] Unavailable Giedraitis MD, Andrius Vytautas Attending Unavailable REAL OG Attending Unavailable DOTTIE BOCANEGRARI Marcial Attending Unavailable DALJITDOTTIERI Marcial Attending Unavailable REAL OG Attending Unavailable REAL OG Referring Unavailable CLARENCE OGOLATarah Butler Attending Unavailable BROWN REAL A Attending Unavailable DALJIT LEELA M Attending Unavailable DALJIT, LEELA M Attending Unavailable BROWN REAL A Attending Unavailable DALJIT LEELA M Attending Unavailable EARLE REAL A Attending Unavailable CHAVA OGS Carrie Attending Unavailable MOOKIE TAMAYO Attending Unavailable DOTTIE BOCANEGRARI Marcial Attending Unavailable AIDE FERREIRA Attending Unavailable STANLEY SAUNDERS Attending Unavailable STANLEY SAUNDERS Attending Unavailable Ivan Barnhart Attending Unavailable KOMAL SCHAFFER Primary Care Unavailable Stanley Saunders DO Attending Provider [phone] Allergies Allergy Classification Reported Allergen(s) Allergy Type Date of Onset Reaction(s) Facility (1 source) No Known Medication Allergies; Translations: [No Known Medication Allergies] Propensity to adverse reactions (disorder) [facility] Repository (6 sources) nebivolol; Translations: [NEBIVOLOL] Drug Allergy [facility] Medications Current Medications Medication Drug Class(es) Dates Sig (Normalized) Sig (Original) acetaminophen 325 mg / oxyCODONE hydrochloride 5 mg oral tablet (20 sources) Opioid Agonist Start: 05-22-2025 End: 06-21-2025 take 1 tablet by mouth once oxyCODONE-acetami nophen (Percocet) 5-325 MG tablet Indications: Pain Take 1 tablet by mouth every 12 (twelve) hours if needed for moderate pain or severe pain 60 tablet 05/22/2025 06/21/2025 Active Start: 04-01-2025 End: 05-01-2025 take 1 tablet by mouth once oxyCODONE-acetaminophen [...] pack Discontinued 0 PO .COMPLEX 74 December 18, [...] capsule Discontinued 500 MG PO Q6H 28 7 January 20, 2019 12:00am May 10, 2023 11:59pm Start: 01-20-2019 End: 05-10-2023 take 1 capsule by mouth every twelve hours Keflex 500 mg Cap 500 mg = 1 cap(s), Oral, q12hr, # 14 cap(s), Refills(s) 0, Pharmacy: [id number], 172, cm, 03/29/22 11:26:00 EDT, Height/Length Dosing, 150.9, kg, 03/29/22 11:26:00 EDT, Weight Dosing Start Date: 03/29/22 Status: Ordered clotrimazole 10 mg/ml topical cream (20 sources) Azole Antifungal Start: 10-09-2024 End: 06-06-2025 [...] / vitamin e 2 unt oral capsule (17 sources) Start: 12-27-2017 take 1 capsule by mouth twice daily [place]-3 Fatty Acids-Fish Oil (Fish Oil) 360-1,200 mg [...] Status: Ordered take 1 capsule by mo [facility] twice daily Fish Oil 1200 MG Oral [...] Active Start: 06-19-2024 take 2 capsules by out twice daily Gabapentin 300 mg capsule Active [...] Start: 07-05-2019 take 1 capsule by mo [facility] twice daily gabapentin (NEURONTIN) 300 mg capsule Take 300 mg by mouth twice daily. 5 07/05/2019 Active Comment on above: Take 300 mg by mouth twice daily. hydrALAZINE hydrochloride 50 mg oral tablet (20 sources) Arteriolar Vasodilator Start: End: take 1 tablet by mouth [...] by mouth twice daily. lactobacillus rhamnosus gg [id number] unt oral capsule (1 source) Start: 10-17-19 23 lactobacillus (CULTURELLE) capsule 1 capsule lisinopril 20 mg oral tablet (20 sources) Angiotensin Converting Enzyme Inhibitor Start: 03-04-20 End: 09-09-19 26 take 1 tablet by [...] with drug therapy take 1 capsule by [facility] once daily loratadine 10 mg capsule Take [...] day with food Oral 0 06/30/2009 Active Wucclpbu-Ziz-Fr-Lycopen-Lute in (Adults 50 Plus) 0.4-300-250 mg-mcg-mcg Tablet (15 sources) Start: 12-27-2017 take 1 tablet by mouth once daily Start: 12-27-2017 take 1 tablet by gloria th once daily Ljoxhdea-Cmz-Ma-Lycopen-Lutein (Adults 5 0 Plus) 0.4-300-250 mg-mcg-mcg Tablet Active 1 TAB PO Daily December 27, 2017 12:00am Complies with drug therapy Start: 12-27-2017 take 1 tablet by gloria th once daily Ochvnyyn-Pyn-En-Lycopen-Lutein (Adults 5 0 Plus) 0.4-300-250 mg-mcg-mcg Tablet Active 1 TAB PO Daily December 26, 2017 11:00pm Start: 12-27-2017 take 1 tablet by gloria th once daily Ircjzlkd-Aqo-Gq-Lycopen-Lutein (Adults 5 0 Plus) 0.4-300-250 mg-mcg-mcg Tablet [...] by mouth once daily. 0 Active omega 3-yjc-xof-fish oil 360 mg-108 mg- 180 mg-1,200 mg capsule (4 sources) take 1 capsule by mouth twice daily omega 2-lvu-jej-fish oil 360 mg-108 mg- 180 mg-1,200 mg capsule Take 1 capsule by mouth 2 times a day. Active omega 3-dha-epa- fish oil 360 mg-108 mg- 180 mg-1,200 mg capsule TAKE DIRECTED. Active omega 3-dha-epa- fish oil 360 mg-108 mg- 180 mg-1,200 mg capsule TAKE DIRECTED. 0 Active [place]-3 Fatty Acids (FISH OIL) 1200 MG CAPS (1 source) Start: 06-08-2022 take 1 capsule by mouth at bedtime [place]-3 Fatty Acids (FISH OIL) 1200 MG CAPS [...] MEQ PO Daily as needed for Hypokalemia June 22, 2024 12:00am July 03, 2024 [...] Discontinued 60 MG PO Daily 3 June 22, 2024 12:00am July 03, 2024 [...] tablet 3 08/26/2024 Active Start: 04-05-2017 End: 05-05-2025 take 1 tablet by mouth four times daily Pyridostigmine [place] 60 mg tablet Discontinued 1 TAB PO Four times daily 120 June 09, 2023 9:05am May 05, 2025 1:53pm Start: 04-05-2017 pyridostigmine (MESTINON) 60 mg tablet [...] Sig (Original) acetaminophen 325 mg oral tablet (12 sources) Start: 06-22-2024 End: 09-17-2024 take 1-3 [...] 19, 2024 12:00am June 22, 2024 12:27pm [id number] 200 actuat albuterol 0.09 mg/actuat metered dose inhaler (13 sources) beta2-Adrenergic Agonist Start: 12-15-2018 End: 05-10-2023 [...] 11:59pm ascorbic acid 500 mg oral tablet (9 sources) Vitamin C Start: 06-22-2024 End: 09-11-2024 [...] procedure, # 2 tab(s), Refills(s) 0, Pharmacy: [id number] Start Date: 12/07/21 Status: Ordered cocoa butter 0.884 mg/mg / phenylephrine hydrochloride 0.0025 mg/mg rectal suppository (9 sources) alpha-1 Adrenergic Agonist Start: 06-22-20 End: 07-09-20 Phenylephrine-[place] Butter (Preparation H(Pe,Cb)) 0.25-88.44 % Suppository Discontinued 1 SUPP TX Twice daily as needed for hemorrhoids 0 June 22, 2024 12:00am July 09, 2024 7:28pm Start: 06-22-2024 End: 07-09-2024 doxycycline hyclate 100 mg oral tablet (8 sources) Tetracycline-class Drug Start: 07-24-2024 End: 08-03-2024 [...] 07-31-2024 Start: 12-07-2021 take 1 capsule by ar ut once daily hydrochlorothiazide-triamterene 25 mg-37.5 mg Cap [...] d aily. lidocaine 0.04 mg/mg medicated patch (8 sources) Antiarrhythmic, Amide Local Anesthetic Start: 07-03-20 End: 09-11-19 apply 1 dose topically once daily Lidocaine (Lidocaine Pain Relief) 4 % Adhesive Patch,Medicated Discontinued 2 PATCH TOPICAL Daily 60 July 03, 2024 1:00am September 11, 2024 2:52pm metoprolol tartrate 25 mg oral tablet (19 sources) beta-Adrenergic Ha Start: 02-22-20 End: 12-16-19 [...] aily. naproxen sodium 220 mg oral tablet (18 sources) Nonsteroidal Anti-inflammatory Drug Start: 12-28-19 End: 12-19-19 take 2 tablets by mouth once daily [...] End: 09-11-2024 Start: 06-09-2023 nystatin (Myco statin) [id number] UNIT/GM powder 06/09/2023 Active Start: 06-09-2023 nystatin (Myco statin) 920209 UNIT/GM powder APPLY TO THE AFFECTED AREA(S) THREE TIMES DAILY FOR 30 DAYS 06/09/2023 Active Start: 06-09-2023 End: 06-19-2024 Nystatin (Nystop) 100,000 un it/gram Powder Discontinued 1 APPLIC TOPICAL Three times daily 09 19June 09, 2023 12:00am June 19, 2024 10:38am Start: 06-09-2023 End: 06-19-2024 [place]-3 Fatty Acids, FISH OIL, 360-1,200 mg cap (2 sources) take 1 capsule by mouth twice daily [place]-3 Fatty Acids, FISH OIL, 360-1,200 mg cap [...] mouth. oxyCODONE hydrochloride 5 mg oral tablet (6 sources) Opioid Agonist Start: 07-31-20 End: 09-11-19 take 2.5 mg by mouth every four hours as needed for pain Oxycodone 5 mg Tablet Discontinued 2.5 MG PO Every 4 hours as needed for Pain 30 July 31, 2024 September 11, 2024 2:52pm pantoprazole 40 mg delayed release oral tablet (9 sources) Proton Pump Inhibitor Start: 06-22-20 End: [...] q12hr, # 30 tab(s), Refills(s) 0, Pharmacy: [id number] Start Date: 02/01/22 Status: Ordered Comment on above: Take 100 mg by mouth twice daily as needed. polyethylene glycol 3350 93767 mg powder for oral solution (1 source) Osmotic Laxative Start: 3 17 g, Oral, DAILY PRN, Starting on 10/15/22 at 1920, Until Discontinued, Constipation First line therapy for constipation saccharomyces boulardii 250 mg oral capsule (8 sources) Start: 4 End: 4 take 1 [...] mg / trimethoprim 160 mg oral tablet (17 sources) Dihydrofolate Reductase Inhibitor Antibacterial, Sulfonamide Antimicrobial Start: 02-23-2018 End: 12-15-2018 take 1 tablet by mouth twice daily Sulfamethoxazole-Trimethoprim (Bactrim Ds) 800-160 mg tablet Discontinued 1 TAB PO Twice daily 14 February 23, 2018 12:00am December 15, 2018 [...] wall of urinary bladder] Onset: 2 Chronic Cancer of bladder (1 source) Personal history of malignant neoplasm of bladder; Translations: [Personal history of malignant neoplasm of bladder] Onset: 5 Episodic Cardiac dysrhythmias (20 sources) Atrial fibrillation; Translations: [...] lower urinary tract symptoms] Onset: 2 Chronic Immunizations and screening for infectious disease (6 sources) Encounter for immunization; Translations: [Vaccination needed] Onset: 1 Episodic Malaise and fatigue (20 sources) Fatigue; Translations: [Chronic fatigue, unspecified] Onset: 4 12-21-2023 Chronic Mycoses (6 sources) Pain in toe; Translations: [Tinea unguium] [...] left elbow] Onset: 3 12-27-2022 Chronic Other acquired deformities (2 sources) Scoliosis deformity of spine; Translations: [Scoliosis, unspecified] 03-18-2025 Chronic Other aftercare (2 sources) Long-term current use of systemic steroid; Translations: [remote computer terminal operator (current) use of systemic steroids] Onset: 3 [...] Chronic Other diseases of veins and lymphatics (6 sources) Vascular insufficiency; Translations: [Venous insufficiency (chronic) [...] 4 12-21-2023 Chronic Other nervous system disorders (6 sources) Unable to walk; Translations: [Difficulty in [...] nutritional; endocrine; and metabolic disorders (8 sources) Hypomagnesemia; Translations: [Hypomagnesemia] Onset: 3 Chronic [...] (BMI) of 45.0 to 49.9 in adult ([facility])] 05-27-2024 Chronic Other nutritional; endocrine; and metabolic disorders (2 sources) Hypomagnesemia; Translations: [Disorders of magnesium metabolism] 07-31-2024 Chronic Other nutritional; endocrine; and metabolic disorders (3 sources) Body mass index (BMI) 45.0-49.9, adult; Translations: [Body mass index (BMI) 45.0-49.9, adult (Multi)] Onset: 5 Chronic Other upper respiratory disease (20 sources) Allergic rhinitis; Translations: [Other allergic rhinitis] Onset: 3 12-27-2022 Chronic Other upper respiratory infections (2 sources) Acute sinusitis; Translations: [Other acute sinusitis] 07-24-2024 Episodic Peripheral and visceral atherosclerosis (2 sources) Intermittent claudication of bilateral lower limbs co-occurrent and due to atherosclerosis; Translations: [Atherosclerosis of [place] arteries of extremities with intermittent claudication, bilateral [...] sources) Localized edema; Translations: [LOCALIZED EDEMA] Onset: 1 Episodic Residual codes; unclassified (10 sources) Localized edema; Translations: [Localized edema] Onset: 3 07-24-2024 Episodic Residual codes; unclassified (9 sources) Pain; Translations: [Pain, unspecified] 12-05-2024 Episodic [...] Onset: 3 12-07-2021 Chronic Superficial injury; contusion (9 sources) Contusion of orbital tissue of right eye; Translations: [Contusion of eyeball and orbital tissues, right eye, initial encounter] Onset: 4 08-08-2024 Episodic Unclassified (2 sources) Dyspnea, unspecified / R06.00(ICD-9) Onset: 8 Unclassified (3 sources) The office is currently closed. Please call the office on Monday for a follow-up appointment. Unclassified (3 sources) The office is currently closed. Please call the office on Monday for a follow-up appointment within 3-5 days. Urinary tract infections (20 sources) Urinary tract infection caused by Enterococcus; Translations: [Urinary tract infection, site not specified] 02-23-2018 Episodic Comment on above: Problem List clean-u p per request of Phys. EHR Cmte Viral infection (1 source) COVID-19; Translations: [COVID-19] Onset: Past or Other Problems Problem Classification Problem [...] and hyponatremia] Onset: 10-16-2022 Resolved: 10-18-2022 Episodic Malaise and fatigue (20 sources) Malaise and fatigue; Translations: [Other malaise] Onset: 10-16-2022 Resolved: 10-18-2022 Episodic Other aftercare (3 sources) Other halfway (current) drug therapy; Translations: [OTH FITTER MECHANIC CURRENT DRUG THERAPY] Onset: 01-20-2022 Episodic Other aftercare (8 sources) senior care (current) use of anticoagulants; Translations: [Long-term (current) use of anticoagulants] Onset: 01-20-2022 07-04-2024 Episodic Other aftercare (20 sources) Taking high risk medication; Translations: [Other termite helper (current) drug therapy] Onset: 09-20-2023 09-20-2023 Episodic Other aftercare (20 sources) Long-term current use of anticoagulant; Translations: [remote computer terminal operator (current) use of anticoagulants] Onset: 09-17-2024 06-23-2024 [...] Test Name Value Interpretation Reference Range Facility Consent Formson 04-29-2025 Consent Forms [id number] Normal [facility] Urinalysis macro (dipstick) panel (U)on 04-01-2025 Bilirubin, UA Negative Negative - 4(70) +++ mg/dL [facility] Blood, UA Negative Negative - 50 Rodri/mcL [facility] Clarity, UA Clear [facility] Color, UA Yellow [facility] Glucose, UA Negative Negative - 2000(110) ++++ mg/dL [facility] Interpretation and review of laboratory results Normal [facility] Ketones, UA Negative Negative - 160(16) ++++ mg/dL [facility] Leukocytes, UA Negative Negative - 500+++ Danilo/mcL [facility] Nitrite, UA Negative Negative - Positive [facility] pH, UA 5 5 - 9 [facility] Protein, UA Negative Negative - 2000(20) ++++ mg/dL [facility] Spec Grav, UA 1.005 1 - 1.03 [facility] Urobilinogen, UA 0.2 0.2 - 12 mg/dL [facility] ALL CKMBon 02-26-2025 [facility] CREATININE KINASE MB 2.35 ng/mL NINF - 3.60 ng/mL [facility] CCF CKon 02-26-2025 CK [Catalytic activity/Vol] 122 U/L 39 - 308 U/L [facility] No Panel Informationon 02-26 [facility] DROP OFF [facility]IS[facility] MR LUMBAR SPINE WO CONon [facility] [place] [id number] Magnetic Resonance Report Signed Patient: TAURUS GARCIA MR#: [id number] : 1945 Acct:[id number] Age/Sex: 79 / M ADM Date: 02/24/25 Loc: MRI Attending Dr: Kimberly Wright NP Ordering Physician: Kimberly Wright NP Date of Service: 02/24/25 Procedure(s): MR lumbar spine wo con Accession Number(s): [id number] cc: KOMAL SCHAFFER ; Kimberly Wright NP [address] [address] Patient Name: TAURUS GARCIA MRN: [id number] date: 1945 Sex: M Assigned Patient Location: MRI Current Patient Location: MRI Accession/Order Number: [id number] Exam Date: 02/24/2025 19:25 Report Date: 02/24/2025 [...] right neural foramina (more content not included)... [facility] Radiology, Radiologangelo sidhu MD - 02/24/2025 [place] [address] Magnetic Resonance Report Signed Patient: TAURUS GARCIA MR#: [id number] : 1945 Acct:[id number] Age/Sex: 79 / M ADM Date: 02/24/25 Loc: MRI Attending Dr: Kimberly Wright NP Ordering Physician: Kimberly Wright NP Date of Service: 02/24/25 Procedure(s): MR lumbar spine wo con Accession Number(s): [id number] cc: KOMAL SCHAFFER ; Kimberly Wright NP [facility] [place] [id number] Patient Name: TAURUS GARCIA MRN: [facility]:[id number] date: 1945 Sex: M Assigned Patient Location: MRI Current Patient Location: MRI Accession/Order Number: [id number] Exam Date: 02/24/2025 19:25 Report Date: 02/24/2025 [...] Menjivar M.D. 02/24/2025 7:31 PM Dictation Location: [place] [address] Electronically authenticated by: [id number] Y Date: 02/24/2025 19:31 Dictated By: Mihai Menjivar M.D. Signed By: 02/24/251933 DD/ 30 TD/TT: Transcriptio (more content not included)... [facility] Radiology Study observation (narrative) [facility] MR LUMBAR SPINE WO CONOrdere d By: Radiologist Radiology on 02-24-2025 [facility] Work Phone: XR LUMBAR SPINE 6V W BENDING on 02-24-2025 [place] [address] XRay Report Signed Patient: TAURUS GARCIA MR#: [id number] : 1945 Acct:[id number] Age/Sex: 79 / M ADM Date: 02/24/25 Loc: MRI Attending Dr: Kimberly Wright NP Ordering Physician: Kimberly Wright NP Date of Service: 02/24/25 Procedure(s): XR lumbar spine 6V w bending Accession Number(s): [id number] cc: KOMAL SCHAFFER ; Kimberly Wright NP The [place] [address] Patient Name: TAURUS GARCIA MRN: [facility]:[id number] date: 1945 Sex: M Assigned Patient Location: MRI Current Patient Location: MRI Accession/Order Number: [id number] Exam Date: 02/24/2025 16:24 Report Date: 02/24/2025 [...] Mock M.D. 02/24/2025 4:27 PM Dictation Location: [place] [address] Electronically authenticated by: [id number] Y Date: 02/24/2025 16:27 Dictated By: Aaron Mock D.O. 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: [facility] RadiologyCaliogangelo sidhu MD - 02/24/2025 [place] [address] XRay Report Signed Patient: TAURUS GARCIA MR#: [id number] : 1945 Acct:[id number] Age/Sex: 79 / M ADM Date: 02/24/25 Loc: MRI Attending Dr: Kimberly Wright NP Ordering Physician: Kimberly Wright NP Date of Service: 02/24/25 Procedure(s): XR lumbar spine 6V w bending Accession Number(s): [id number] cc: KOMAL SCHAFFER ; Kimberly Wright NP [place] [address] Patient Name: TAURUS GARCIA MRN: [facility]:[id number] date: 1945 Sex: M Assigned Patient Location: MRI Current Patient Location: MRI Accession/Order Number: [id number] Exam Date: 02/24/2025 16:24 Report Date: 02/24/2025 [...] Mock M.D. 02/24/2025 4:27 PM Dictation Location: [place] [address] Electronically authenticated by: [id number] Y Date: 02/24/2025 16:27 Dictated By: Aaron Mock D.O. 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 XR LUMBAR SPINE 6V W BENDING Ordered By: Radiologist Radiology on 02-24-2025 [facility] [employer] Work Phone: Complete Blood Count Auto Di ffon 02-14-2025 Basophils (Bld) [#/Vol] 0.1 10*3/uL Normal 0.0-0.2 [facility] Comment on above: Result Comment: PERF ORMED BY:[place] [address] [address] [place], [place] [phone] MEDICAL DIRECTORJIMENA RICHARDSON M.D. Performed By: #### C BC, CMP, MG ####[address] Basophils/100 WBC (Bld) 1.4 % Normal . [facility] Comment on above: Performed By: #### C BC, CMP, MG ####[address] Eosinophils (Bld) [#/Vol] 0.1 10*3/uL Normal 0.0-0.45 [facility] Comment on above: Performed By: #### C BC, CMP, MG ####[address] Eosinophils/100 WBC (Bld) 1.5 % Normal . [facility] Comment on above: Performed By: #### C BC, CMP, MG ####[address] Erythrocyte distribution width (RBC) [Ratio] 16.8 % High 12.0-14.8 [facility] Comment on above: Performed By: #### C BC, CMP, MG ####[address] Hematocrit (Bld) [Volume fraction] 39.7 % Normal 38.8-50.0 [facility] Comment on above: Performed By: #### C BC, CMP, MG ####[address] Hemoglobin (Bld) [Mass/Vol] 13.3 g/dL Normal 13.0-17.0 [facility] Comment on above: Performed By: #### C BC, CMP, MG ####[address] Lymphocytes (Bld) [#/Vol] 1.3 10*3/uL Normal 1.00-4.8 [facility] Comment on above: Performed By: #### C BC, CMP, MG ####[address] Lymphocytes/100 WBC (Bld) 19.9 % Normal . [facility] Comment on above: Performed By: #### C BC, CMP, MG ####[address] MCH (RBC) [Entitic mass] 30.4 pg Normal 27.5-35.2 [facility] Comment on above: Performed By: #### C BC, CMP, MG ####[address] MCV (RBC) [Entitic vol] 90.5 fL Normal 83.5-101 [facility] Comment on above: Performed By: #### C BC, CMP, MG ####[address] Mean Corpuscular HGB Conc 33.6 g/dL Normal 32.5-35.6 [facility] Comment on above: Performed By: #### C BC, CMP, MG ####[address] Monocytes (Bld) [#/Vol] 0.9 10*3/uL High 0.0-0.8 [facility] Comment on above: Performed By: #### C BC, CMP, MG ####[address] Monocytes/100 WBC (Bld) 13.8 % Normal . [facility] Comment on above: Performed By: #### C BC, CMP, MG ####[address] Neutrophils (Bld) [#/Vol] 4.1 10*3/uL Normal 1.8-7.7 [facility] Comment on above: Performed By: #### C BC, CMP, MG ####[address] Neutrophils/100 WBC (Bld) 63.4 % Normal . [facility] Comment on above: Performed By: #### C BC, CMP, MG ####[address] NRBC% 0.1 /100{WBC} Normal 0-0.5 [facility] Comment on above: Performed By: #### C BC, CMP, MG ####[address] Platelet mean volume (Bld) [Entitic vol] 8.5 fL Normal 6.6-10.1 [facility] Comment on above: Performed By: #### C BC, CMP, MG ####[address] Platelets (Bld) [#/Vol] 182 10*3/uL Normal 150-450 [facility] Comment on above: Performed By: #### C BC, CMP, MG ####[address] RBC (Bld) [#/Vol] 4.39 10*6/uL Normal 3.90-5.60 [facility] Comment on above: Performed By: #### C BC, CMP, MG ####[address] WBC (Bld) [#/Vol] 6.5 10*3/uL Normal 4.1-10.5 [facility] Comment on above: Performed By: #### C BC, CMP, MG ####[place] [id number] [facility] White Blood Count 6.5 [CFU]/mL Normal 4.1-10.5 [facility] Comment on above: Performed By: #### C BC, CMP, MG ####[place] [id number] [facility] Comprehensive Metabolic Pane radha 02-14-2025 Albumin [Mass/Vol] 3.4 g/dL Low 3.5-5.7 [facility] Comment on above: Performed By: #### C BC, CMP, MG ####[place] [id number] [facility] Albumin/Globulin [Mass ratio] 1.5 {ratio} Normal [facility] Comment on above: Performed By: #### C BC, CMP, MG ####[place] [id number] [place] [id number] [facility] ALP [Catalytic activity/Vol] 49 U/L Normal 34-104 [facility] Comment on above: Performed By: #### C BC, CMP, MG ####[place] [id number] [place] [id number] [facility] ALT [Catalytic activity/Vol] 16 U/L Normal 7-52 [facility] Comment on above: Performed By: #### C BC, CMP, MG ####[place] [address] [place] [id number] [facility] Anion gap [Moles/Vol] 12.1 mmol/L Normal 6.0-15.0 [facility] Comment on above: Performed By: #### C BC, CMP, MG ####[place] [id number] [facility] AST [Catalytic activity/Vol] 22 U/L Normal 13-39 [facility] Comment on above: Performed By: #### C BC, CMP, MG ####[place] [id number] [facility] Bilirubin [Mass/Vol] 1.0 mg/dL Normal 0.3-1.0 [facility] Comment on above: Performed By: #### C BC, CMP, MG ####[place] [id number] [facility] Calcium [Mass/Vol] 8.7 mg/dL Normal 8.6-10.3 [facility] Comment on above: Performed By: #### C BC, CMP, MG ####[place] [id number] [place] [id number] [facility] Chloride [Moles/Vol] 104 mmol/L Normal 98-107 [facility] Comment on above: Performed By: #### C BC, CMP, MG ####[place] [id number] [facility] CO2 [Moles/Vol] 27.7 mmol/L Normal 21.0-31.0 [facility] Comment on above: Performed By: #### C BC, CMP, MG ####[address] Creatinine [Mass/Vol] 1.37 mg/dL High 0.70-1.30 [facility] Comment on above: Performed By: #### C BC, CMP, MG ####[address] Creatinine Clr Calc Pharmacy 57.23 Normal [facility] Comment on above: Performed By: #### C BC, CMP, MG ####[address] GFR/1.73 sq M.predicted MDRD (S/P/Bld) [Vol rate/Area] 51.824 mL/min/{1.73_m2} Normal [facility] Comment on above: Performed By: #### C BC, CMP, MG ####[address] Globulin (S) [Mass/Vol] 2.3 g/dL Normal [facility] Comment on above: Performed By: #### C BC, CMP, MG ####[address] Glucose [Mass/Vol] 110 mg/dL High 70-100 [facility] Comment on above: Result Comment: [place] Glucose Reference Range is dependent on time and content of last meal. Glucose of more than 200 mg/dL in a nonstressed, ambulatory subject supports the diagnosis of Diabetes Mellitus. ADA recommended reference range Performed By: #### C BC, CMP, MG ####[address] Potassium [Moles/Vol] 3.8 mmol/L Normal 3.5-5.1 [facility] Comment on above: Performed By: #### C BC, CMP, MG ####[address] Protein [Mass/Vol] 5.7 g/dL Low 6.4-8.9 [facility] Comment on above: Performed By: #### C BC, CMP, MG ####[place] [id number] [place] [id number] [facility] Sodium [Moles/Vol] 140 mmol/L Normal 136-145 [facility] Comment on above: Performed By: #### C BC, CMP, MG ####[place] [address] [place] [id number] [facility] Urea nitrogen [Mass/Vol] 21 mg/dL Normal 7-25 [facility] Comment on above: Performed By: #### C BC, CMP, MG ####[place] [address] [place] [id number] [facility] Magnesiumon 02-14-2025 Magnesium [Mass/Vol] 1.8 mg/dL Low 1.9-2.7 [facility] Comment on above: Result Comment: PERF ORMED BY:[address] [place], [place] [phone] MEDICAL CHAVEZ RICHARDSON M.D. Performed By: #### C BC, CMP, MG ####[place] [id number] [place] [id number] [facility] Alanine aminotransferase [En zymatic activity/volume] in Serum or PlasmaOrdered By: Kathleen Keith on 02-13-2025 ALT [Catalytic activity/Vol] 16 U/L Normal 7-52 [facility] Comment on above: Performed By: #### C MP, CBC, HS TROP, TSH3, MG ####[place] [id number] [place] [id number] [facility] Albumin [Mass/volume] in Ser um or Plasma by Bromocresol green (BCG) dye binding methoOrdered By: Kathleen Keith on 02-13-2025 Albumin BCG dye [Mass/Vol] 3.5 g/dL 3.5-5.7 [facility] Alkaline phosphatase [Enzyma tic activity/volume] in Serum or PlasmaOrdered By: Kathleen Keith on 02-13-2025 ALP [Catalytic activity/Vol] 48 U/L Normal 34-104 [facility] Comment on above: Performed By: #### C MP, CBC, HS TROP, TSH3, MG ####[place] [id number] [facility] Appearance of UrineOrdered B y: Kathleenwarner Browningb on 02-13-2025 Appearance (U) Clear Normal Clear [facility] Comment on above: Order Comment: Name Collection Type:: Voided Performed By: #### A DDONUAPLUS ####[address] Aspartate aminotransferase [ Enzymatic activity/volume] in Serum or PlasmaOrdered By: Kathleen Parker on 02-13-2025 AST [Catalytic activity/Vol] 24 U/L Normal 13-39 [facility] Comment on above: Performed By: #### C MP, CBC, HS TROP, TSH3, MG ####[address] BNP ser/plasOrdered By: Donaldo De Leon on 02-13-2025 Natriuretic peptide B (Bld) [Mass/Vol] 38.0 pg/mL Normal 5-100 [facility] Comment on above: Result Comment: PERF ORMED BY:[place] [address] [address] [place], [place] [phone] MEDICAL CHAVEZ RICHARDSON M.D. Performed By: #### B LETTERPRESS SETTER ####[address] Bacteria [Presence] in Urine by AutomatedOrdered By: Kathleen Parker on 02-13-2025 Bacteria Auto Ql (U) Rare [HPF] None Seen [facility] Basophils [#/volume] in Bloo d by Automated countOrdered By: Kathleen Parker on 02-13-2025 Basophils (Bld) [#/Vol] 0.1 10*3/uL Normal 0.0-0.2 [facility] Comment on above: Result Comment: PERF ORMED BY:[place] [address] [address] [place], [place] [phone] MEDICAL CHAVEZ RICHARDSON M.D. Performed By: #### C MP, CBC, HS TROP, TSH3, MG ####[place] [id number] Basophils/100 leukocytes in Blood by Automated countOrdered By: Kathleen Parker on 02-13-2025 Basophils/100 WBC (Bld) 1.2 % Normal . [facility] Comment on above: Performed By: #### C MP, CBC, HS TROP, TSH3, MG ####[place] [id number] [address] Bilirubin Test strip Ql (U)O rdered By: Kathleen Parker on 02-13-2025 Bilirubin Ql (U) Negative Negative [facility] Bilirubin.total [Mass/volume ] in Serum or PlasmaOrdered By: Kathleen Parker on 02-13-2025 Bilirubin [Mass/Vol] 1.1 mg/dL High 0.3-1.0 [facility] Comment on above: Performed By: #### C MP, CBC, HS TROP, TSH3, MG ####[place] [id number] angio neckon 02-13-2025 CT angio neck Normal [facility] CT head/brain wo conon 02-13 CT head/brain wo con Normal [facility] Calcium [Mass/volume] in Ser um or PlasmaOrdered By: Kathleen Parker on 02-13-2025 Calcium [Mass/Vol] 9.0 mg/dL Normal 8.6-10.3 [facility] Comment on above: Performed By: #### C MP, CBC, HS TROP, TSH3, MG ####[place] [id number] Capillary blood glucose cheo urement by glucometer (mass/volume)Ordered By: Kathleen Parker on 02-13-2025 Glucose [Mass/Vol] 105 mg/dL Normal [facility] Comment on above: Random Glucose Refer ence Range is dependent on time and content of last meal. Glucose of more than 200 mg/dL in a nonstressed, ambulatory subject supports the diagnosis of Diabetes Mellitus. Result Comment: [place] om Glucose Reference Range is dependent on time and content of last meal. Glucose of more than 200 mg/dL in a nonstressed, ambulatory subject supports the diagnosis of Diabetes Mellitus.PERFORMED BY:[address] [place], [place] [phone] MEDICAL DIRECTORJIMENA RICHARDSON M.D. Performed By: #### G ANASTASIIA ####Point of Care testing, Carbon dioxide, total [Moles /volume] in Serum or PlasmaOrdered By: Kathleen Parker on 02-13-2025 CO2 [Moles/Vol] 29.4 mmol/L Normal 21.0-31.0 [facility] Comment on above: Performed By: #### C MP, CBC, HS TROP, TSH3, MG ####[place] [id number] [facility] Chloride [Moles/volume] in [place] or PlasmaOrdered By: Kathleen Parker on 02-13-2025 Chloride [Moles/Vol] 105 mmol/L Normal 98-107 [facility] Comment on above: Performed By: #### C MP, CBC, HS TROP, TSH3, MG ####[place] [id number] [facility] Color of Urine by AutoOrdere d By: Kathleen Parker on 02-13-2025 Color (U) Yellow Normal Yellow [facility] Comment on above: Order Comment: Name Collection Type:: Voided Performed By: #### A DDONUAPLUS ####[place] [id number] [facility] Complete Blood Count Auto Di ffon 02-13-2025 Mean Corpuscular HGB Conc 33.3 g/dL Normal 32.5-35.6 [facility] Comment on above: Performed By: #### C MP, CBC, HS TROP, TSH3, MG ####[place] [id number] [place] Monocytes/100 WBC (Bld) 20.92 % High 0.00-20.00 [facility] Comment on above: Result Comment: For adults in ED, MDW > 20.0 may be associated with a higher risk of sepsis during the first 12 hrs of hospital admission Performed By: #### C MP, CBC, HS TROP, TSH3, MG ####[address] NRBC% 0.0 /100{WBC} Normal 0-0.5 [facility] Comment on above: Performed By: #### C MP, CBC, HS TROP, TSH3, MG ####[address] White Blood Count 7.3 [CFU]/mL Normal 4.1-10.5 [facility] Comment on above: Performed By: #### C MP, CBC, HS TROP, TSH3, MG ####[address] Comprehensive Metabolic Pane radha 02-13-2025 Albumin [Mass/Vol] 3.5 g/dL Normal 3.5-5.7 [facility] Comment on above: Performed By: #### C MP, CBC, HS TROP, TSH3, MG ####[address] Creatinine Clr Calc Pharmacy 64.21 Normal [facility] Comment on above: Performed By: #### C MP, CBC, HS TROP, TSH3, MG ####[address] GFR/1.73 sq M.predicted MDRD (S/P/Bld) [Vol rate/Area] 58.980 mL/min/{1.73_m2} Normal [facility] Comment on above: Performed By: #### C MP, CBC, HS TROP, TSH3, MG ####[address] Creatinine [Mass/volume] in Serum or PlasmaOrdered By: Kathleen Parker on 02-13-2025 Creatinine [Mass/Vol] 1.23 mg/dL Normal 0.70-1.30 [facility] Comment on above: Performed By: #### C MP, CBC, HS TROP, TSH3, MG ####[address] Dipstick and Microscopicon 0 02-13-2025 Bacteria,Urine Rare Normal None Seen [facility] Comment on above: Order Comment: Name Collection Type:: Voided Performed By: #### A DDONUAPLUS ####[address] [address] [facility] Bilirubin,Urine Negative Normal Negative [facility] Comment on above: Order Comment: Name Collection Type:: Voided Performed By: #### A DDONUAPLUS ####[place] [id number] [facility] Glucose Ql (U) Normal Normal Normal [facility] Comment on above: Order Comment: Name Collection Type:: Voided Performed By: #### A DDONUAPLUS ####[place] [id number] [facility] Hyaline Casts,Urine None Normal 0-8 [facility] Comment on above: Order Comment: Name Collection Type:: Voided Performed By: #### A DDONUAPLUS ####[place] [id number] [facility] Mucus,Urine Rare Normal [facility] Comment on above: Order Comment: Name Collection Type:: Voided Result Comment: PERF ORMED BY:[address] [place], [place] [phone] MEDICAL CHAVEZ RICHARDSON M.D. Performed By: #### A DDONUAPLUS ####[place] [id number] [facility] Nitrite,Urine Negative Normal Negative [facility] Comment on above: Order Comment: Name Collection Type:: Voided Performed By: #### A DDONUAPLUS ####[place] [id number] [facility] Occult Blood,Urine 1+ Normal Negative [facility] Comment on above: Order Comment: Name Collection Type:: Voided Result Comment: PERF ORMED BY:[address], [place] [phone] MEDICAL CHAVEZ RICHARDSON M.D. Performed By: #### A DDONUAPLUS ####[address] [address] [facility] Protein,Urine Negative Normal Negative [facility] Comment on above: Order Comment: Name Collection Type:: Voided Performed By: #### A DDONUAPLUS ####[address] [address] [facility] RBC,Urine 10-19 Normal 0-4 [facility] Comment on above: Order Comment: Name Collection Type:: Voided Performed By: #### A DDONUAPLUS ####[address] [address] [facility] Specificy [place],Urine 1.018 Normal 1.001-1.03 0 [facility] Comment on above: Order Comment: Name Collection Type:: Voided Performed By: #### A DDONUAPLUS ####[address] [address] [facility] Squamous Epithelial Cell,Urine 1-2 Normal 0-2 [facility] Comment on above: Order Comment: Name Collection Type:: Voided Performed By: #### A DDONUAPLUS ####[address] [address] [facility] Urobilinogen,Urine Normal Normal Normal [facility] Comment on above: Order Comment: Name Collection Type:: Voided Performed By: #### A DDONUAPLUS ####[address] [address] [facility] WBC,Urine 1-2 Normal 0-4 [facility] Comment on above: Order Comment: Name Collection Type:: Voided Performed By: #### A DDONUAPLUS ####[address] [address] [facility] ECG 12 lead ECGon 02-13-2025 ECG 12 lead ECG Normal [facility] Eosinophils [#/volume] in Bl ood by Automated countOrdered By: Kathleen Parker on 02-13-2025 Eosinophils (Bld) [#/Vol] 0.1 10*3/uL Normal 0.0-0.45 [facility] Comment on above: Performed By: #### C MP, CBC, HS TROP, TSH3, MG ####[place] [id number] Eosinophils/100 leukocytes i n Blood by Automated countOrdered By: Kathleen Parker on 02-13-2025 Eosinophils/100 WBC (Bld) 1.0 % Normal . [facility] Comment on above: Performed By: #### C MP, CBC, HS TROP, TSH3, MG ####[place] [id number] Epithelial cells.squamous [# /area] in Urine sediment by Automated countOrdered By: Kathleen Parker on 02-13-2025 Epithelial cells.squamous Auto (Urine sed) [#/Area] 1-2 [HPF] 0-2 [facility] Erythrocyte distribution wid th [Ratio] by Automated countOrdered By: Kathleen Parker on 02-13-2025 Erythrocyte distribution width (RBC) [Ratio] 16.6 % High 12.0-14.8 [facility] Comment on above: Performed By: #### C MP, CBC, HS TROP, TSH3, MG ####[place] [id number] Erythrocytes [#/area] in Uri ne sediment by Automated countOrdered By: Kathleen Parker on 02-13-2025 RBC Auto (Urine sed) [#/Area] 10-19 [HPF] High 0-4 [facility] Erythrocytes [#/volume] in B lood by Automated countOrdered By: Kathleen Parker on 02-13-2025 RBC (Bld) [#/Vol] 4.33 10*6/uL Normal 3.90-5.60 [facility] Comment on above: Performed By: #### C MP, CBC, HS TROP, TSH3, MG ####[place] [id number] Glucose [Mass/volume] in Ser um or PlasmaOrdered By: Kathleen Parker on 02-13-2025 Glucose [Mass/Vol] 98 mg/dL Normal 70-100 [facility] Comment on above: ADA recommended refe rence rangeRandom Glucose Reference Range is dependent on time and content of last meal. Glucose of more than 200 mg/dL in a nonstressed, ambulatory subject supports the diagnosis of Diabetes Mellitus. Result Comment: [place] Glucose Reference Range is dependent on time and content of last meal. Glucose of more than 200 mg/dL in a nonstressed, ambulatory subject supports the diagnosis of Diabetes Mellitus. ADA recommended reference range Performed By: #### C MP, CBC, HS TROP, TSH3, MG ####[facility] [id number] [place] [id number] [facility] Glucose [Mass/volume] in Uri ne by Test stripOrdered By: Kathleen Parker on 02-13-2025 Glucose Test strip (U) [Mass/Vol] Normal mg/dL Normal [facility] Hematocrit [Volume Fraction] of Blood by Automated countOrdered By: Kathleen Parker on 02-13-2025 Hematocrit (Bld) [Volume fraction] 39.2 % Normal 38.8-50.0 [facility] Comment on above: Performed By: #### C MP, CBC, HS TROP, TSH3, MG ####[facility] [place] [id number] [facility] Hemoglobin Test strip Ql (U) Ordered By: Kathleen Parker on 02-13-2025 Hemoglobin Ql (U) 1+ High Negative [facility] Hemoglobin [Mass/volume] in BloodOrdered By: Kathleen Parker on 02-13-2025 Hemoglobin (Bld) [Mass/Vol] 13.1 g/dL Normal 13.0-17.0 [facility] Comment on above: Performed By: #### C MP, CBC, HS TROP, TSH3, MG ####[place] [address] [place] [id number] [facility] Hyaline casts [#/area] in Ur ine sediment by Automated countOrdered By: Kathleen Parker on 02-13-2025 Hyaline casts Auto (Urine sed) [#/Area] None [LPF] 0-8 [facility] Ketones [Presence] in Urine by Test stripOrdered By: Kathleen Parker on 02-13-2025 Ketones Ql (U) 1+ Normal Negative [facility] Comment on above: Order Comment: Name Collection Type:: Voided Performed By: #### A DDONUAPLUS ####[address] Leukocyte esterase [Presence ] in Urine by Test stripOrdered By: Kathleen Parker on 02-13-2025 Leukocyte esterase Test strip Ql (U) Negative Normal Negative [facility] Comment on above: Order Comment: Name Collection Type:: Voided Performed By: #### A DDONUAPLUS ####[address] Leukocytes [#/area] in Urine sediment by Automated countOrdered By: Kathleen Parker on 02-13-2025 WBC Auto (Urine sed) [#/Area] 1-2 [HPF] 0-4 [facility] Leukocytes [#/volume] correc blessing for nucleated erythrocytes in Blood by Automated counOrdered By: Kathleen Parker on 02-13-2025 WBC corrected for nucl RBC Auto (Bld) [#/Vol] 7.3 10*3/uL 4.1-10.5 [facility] Leukocytes [#/volume] in Blo od by Automated countOrdered By: Kathleen Parker on 02-13-2025 WBC (Bld) [#/Vol] 7.3 10*3/uL Normal 4.1-10.5 [facility] Comment on above: Performed By: #### C MP, CBC, HS TROP, TSH3, MG ####[place] [address] [place] Lymphocytes [#/volume] in Bl ood by Automated countOrdered By: Kathleen Parker on 02-13-2025 Lymphocytes (Bld) [#/Vol] 1.2 10*3/uL Normal 1.00-4.8 [facility] Comment on above: Performed By: #### C MP, CBC, HS TROP, TSH3, MG ####[place] [address] [place] [address] [place] Lymphocytes/100 leukocytes i n Blood by Automated countOrdered By: Kathleen Parker on 02-13-2025 Lymphocytes/100 WBC (Bld) 16.7 % Normal . [facility] Comment on above: Performed By: #### C MP, CBC, HS TROP, TSH3, MG ####[place] [id number] MCH [Entitic mass] by Automa blessing countOrdered By: Kathleen Parker on 02-13-2025 MCH (RBC) [Entitic mass] 30.2 pg Normal 27.5-35.2 [facility] Comment on above: Performed By: #### C MP, CBC, HS TROP, TSH3, MG ####[address] MCHC Auto (RBC) [Mass/Vol]Or dered By: Kathleen Parker on 02-13-2025 MCHC (RBC) [Mass/Vol] 33.3 g/dL 32.5-35.6 [facility] MCV [Entitic volume] by Auto mated countOrdered By: Kathleen Parker on 02-13-2025 MCV (RBC) [Entitic vol] 90.6 fL Normal 83.5-101 [facility] Comment on above: Performed By: #### C MP, CBC, HS TROP, TSH3, MG ####[address] Magnesium [Mass/volume] in [place] or PlasmaOrdered By: Kathleen Parker on 02-13-2025 Magnesium [Mass/Vol] 1.9 mg/dL Normal 1.9-2.7 [facility] Comment on above: Performed By: #### C MP, CBC, HS TROP, TSH3, MG ####[address] Monocyte distribution width [Entitic volume] in Blood by AutomatedOrdered By: Kathleen Parker on 02-13-2025 Monocyte distribution width Auto (Bld) [Entitic vol] 20.92 % High 0.00-20.00 [facility] Comment on above: For adults in ED, MD W > 20.0 may be associated with a higher risk of sepsis during the first 12 hrs of hospital admission Monocytes [#/volume] in Bloo d by Automated countOrdered By: Kathleen Parker on 02-13-2025 Monocytes (Bld) [#/Vol] 1.1 10*3/uL High 0.0-0.8 [facility] Comment on above: Performed By: #### C MP, CBC, HS TROP, TSH3, MG ####[facility] [id number] [place] [id number] [place] Monocytes/100 leukocytes in Blood by Automated countOrdered By: Kathleen Parker on 02-13-2025 Monocytes/100 WBC (Bld) 15.5 % Normal . [facility] Comment on above: Performed By: #### C MP, CBC, HS TROP, TSH3, MG ####[place] [id number] Mucus [Presence] in Urine by AutomatedOrdered By: Kathleen Parker on 02-13-2025 Mucus Auto Ql (U) Rare [LPF] [facility] Neutrophils [#/volume] in Bl ood by Automated countOrdered By: Kathleen Parker on 02-13-2025 Neutrophils (Bld) [#/Vol] 4.8 10*3/uL Normal 1.8-7.7 [facility] Comment on above: Performed By: #### C MP, CBC, HS TROP, TSH3, MG ####[facility] [place] [id number] [place] Neutrophils/100 leukocytes i n Blood by Automated countOrdered By: Kathleen Parker on 02-13-2025 Neutrophils/100 WBC (Bld) 65.6 % Normal . [facility] Comment on above: Performed By: #### C MP, CBC, HS TROP, TSH3, MG ####[place] [id number] [place] Nitrite Test strip Ql (U)Ord ered By: Kathleen Parker on 02-13-2025 Nitrite Ql (U) Negative Negative [facility] No Panel InformationOrdered By: Kathleen Parker on 02-13-2025 Estimated GFR (CKD-EPI) 58.980 mL/Min [facility] Creatinine Clearance (Chem 64.21 [facility] Nucleated erythrocytes [Pres ence] in Blood by Automated countOrdered By: Kathleen Parker on 02-13-2025 Nucleated RBC Auto Ql (Bld) 0.0 /100{WBC} 0-0.5 [facility] Platelet mean volume [Entiti c volume] in Blood by Automated countOrdered By: Kathleen Parker on 02-13-2025 Platelet mean volume (Bld) [Entitic vol] 8.3 fL Normal 6.6-10.1 [facility] Comment on above: Performed By: #### C MP, CBC, HS TROP, TSH3, MG ####[address] Platelets [#/volume] in Bloo d by Automated countOrdered By: Kathleen Parker on 02-13-2025 Platelets (Bld) [#/Vol] 168 10*3/uL Normal 150-450 [facility] Comment on above: Performed By: #### C MP, CBC, HS TROP, TSH3, MG ####[address] Potassium [Moles/volume] in Serum or PlasmaOrdered By: Kathleen Parker on 02-13-2025 Potassium [Moles/Vol] 4.0 mmol/L Normal 3.5-5.1 [facility] Comment on above: Performed By: #### C MP, CBC, HS TROP, TSH3, MG ####[place] [id number] [facility] Protein Test strip (U) [Mass /Vol]Ordered By: Kathleen Parker on 02-13-2025 Protein (U) [Mass/Vol] Negative Negative [facility] Protein [Mass/volume] in Ser um or PlasmaOrdered By: Kathleen Parker on 02-13-2025 Protein [Mass/Vol] 5.7 g/dL Low 6.4-8.9 [facility] Comment on above: Performed By: #### C MP, CBC, HS TROP, TSH3, MG ####[place] [id number] [facility] Serum globulin measurement b y calculation (mass/volume)Ordered By: Kathleen Parker on 02-13-2025 Globulin (S) [Mass/Vol] 2.2 g/dL Normal [facility] Comment on above: Performed By: #### C MP, CBC, HS TROP, TSH3, MG ####[facility] Serum or plasma albumin/glob ulin mass ratioOrdered By: Kathleen Parker on 02-13-2025 Albumin/Globulin [Mass ratio] 1.6 {ratio} [facility] Comment on above: Performed By: #### C MP, CBC, HS TROP, TSH3, MG ####[place] [id number] Serum or plasma anion gap de terminationOrdered By: Kathleen Parker on 02-13-2025 Anion gap [Moles/Vol] 9.6 mmol/L Normal 6.0-15.0 [facility] Comment on above: Performed By: #### C MP, CBC, HS TROP, TSH3, MG ####[place] [address] Sodium [Moles/volume] in Ser um or PlasmaOrdered By: Kathleen Parker on 02-13-2025 Sodium [Moles/Vol] 140 mmol/L Normal 136-145 [facility] Comment on above: Performed By: #### C MP, CBC, HS TROP, TSH3, MG ####[address] Specific gravity Test strip (U) [Rel density]Ordered By: Kathleen Parker on 02-13-2025 Specific gravity (U) [Rel density] 1.018 1.001-1.03 0 [facility] Thyrotropin [Units/volume] i n Serum or PlasmaOrdered By: Kathleen Parker on 02-13-2025 TSH Qn 1.43 m[IU]/L Normal 0.45-5.33 [facility] Comment on above: Result Comment: PERF ORMED BY:[address] [place], [place] [id number] MEDICAL CHAVEZ RICHARDSON M.D. Performed By: #### C MP, CBC, HS TROP, TSH3, MG ####[address] [place] [address] [facility] Troponin I High Sensitivityo n 02-13-2025 Troponin I High Sensitivity 10 Normal 0-20 [facility] Comment on above: Result Comment: The Troponin units of report have been changed to meet the Chest Pain Accreditation requirement, element EC5.M1l2. Troponin units are changed from pg/ml to ng/L. Also, the decimal is removed and results are in whole numbers.PERFORMED BY:[address] [id number] MEDICAL CHAVEZ RICHARDSON M.D. Performed By: #### C MP, CBC, HS TROP, TSH3, MG ####[address] [address] [facility] Troponin I.cardiac [Mass/vol ume] in Serum or Plasma by Detection limit <= 0.01 ng/mLOrdered By: Kathleen Parker on 02-13-2025 Troponin I.cardiac DL <= 0.01 ng/mL [Mass/Vol] 10 ng/L 0-20 [facility] Comment on above: The Troponin units o f report have been changed to meet the Chest Pain Accreditation requirement, element EC5.M1l2. Troponin units are changed from pg/ml to ng/L. Also, the decimal is removed and results are in whole numbers. Urea nitrogen [Mass/volume] in Serum or PlasmaOrdered By: Kathleen Parker on 02-13-2025 Urea nitrogen [Mass/Vol] 24 mg/dL Normal 7-25 [facility] Comment on above: Performed By: #### C MP, CBC, HS TROP, TSH3, MG ####[place] [id number] [facility] Urobilinogen Test strip (U) [Mass/Vol]Ordered By: Kathleen Parker on 02-13-2025 Urobilinogen (U) [Mass/Vol] Normal mg/dL Normal [facility] X-ray reportOrdered By: See Diallo on 02-13-2025 Study report [facility] [address] [place] [address] [place] [address] XRay Report Signed Patient: Taurus Garcia MR#: [id number] : 1945 Acct:[id number] Age/Sex: 79 / M ADM Date: 5 Loc: ER Room: Type: [facility] ER Attending Dr: Copies to: Kathleen Parker APRN~ Ordering Provider: Kathleen Parker APRN Date of Service: 02/13/25 XR/XR chest 2V*: Weakness Chest 2 views CLINICAL HISTORY: Weakness for 2 days COMPARISON: Chest 09/11/2024 FINDINGS: Heart normal in size. Lungs are clear. No free air. XR/XR chest 2V* IMPRESSION: NO ACUTE CARDIOPULMONARY ABNORMALITY. Impression dictated by: Silvestre Diallo Jr., D.O. 02/13/2025 10:06 AM Dictation Location: [place] [address] Transcribed By: [facility] 02/13/25 1006 Dictated By: Silvestre Diallo Jr, DO 02/13/25 1005 Signed By: 02/13/25 1006 [facility] XR chest 2V*on 02-13-2025 XR chest 2V* Normal [facility] pH of Urine by Test stripOrd ered By: Kathleen Parker on 02-13-2025 pH (U) 5.5 [pH] Normal 5.0-9.0 [facility] Comment on above: Order Comment: Name Collection Type:: Voided Performed By: #### A DDONUAPLUS ####[facility] [address] [place] [address] [facility] XR Foot - left 3 [facility] Result: Notable medial distal tuft fracture of the distal phalanx with slight displacement [facility] Radiology Study observation (narrative) [facility] BASIC METABOLIC PANEL WITH A NION GAPon 11-09-2024 BUN/CREATININE RATIO SEE NOTE: Normal - [facility] Comment on above: Result Comment: Not Reported: BUN and Creatinine are within reference range. Performed By: #### 9 2498 #### [facility] [place] [address] Housekeeping Lead: Daniele Carlson MD Calcium [Mass/Vol] 9.1 mg/dL Normal 8.6-10.3 [facility] Comment on above: Performed By: #### 9 2498 #### [facility] [place] [address] Housekeeping Lead: Daniele Carlson MD Chloride [Moles/Vol] 101 mmol/L Normal 98-110 [facility] Comment on above: Performed By: #### 9 2498 #### [facility] [place] [address] Housekeeping Lead: Daniele Carlson MD CO2 [Moles/Vol] 29 mmol/L Normal 20-32 [facility] Comment on above: Performed By: #### 9 2498 #### [facility] [place] [address] Housekeeping Lead: Daniele Carlson MD Creatinine [Mass/Vol] 1.03 mg/dL Normal 0.70-1.[address] [facility] Comment on above: Performed By: #### 9 2498 #### [facility] [place] [address] Housekeeping Lead: Daniele Carlson MD ELECTROLYTE BALANCE 12 mmol/L (calc) Normal 7-17 [facility] Comment on above: Performed By: #### 9 2498 #### [facility] [place] [address] Housekeeping Lead: Daniele Carlson MD GFR/1.73 sq M.predicted among non-blacks MDRD (S/P/Bld) [Vol rate/Area] 73 mL/min/{1.73_m2} Normal > OR = 60 [facility] Comment on above: Performed By: #### 9 9148 #### [facility] [place] [address] Housekeeping Lead: Daniele Carlson MD Glucose [Mass/Vol] 169 mg/dL High 65-99 [facility] Comment on above: Result Comment: Fasting reference interval For someone without known diabetes, a glucose value >125 mg/dL indicates that they may have diabetes and this should be confirmed with a follow-up test. Performed By: #### 9 2498 #### [facility] of [address], [address] [place] [address] Housekeeping Lead: Daniele Carlson MD Potassium [Moles/Vol] 3.6 mmol/L Normal 3.5-5.[address] [facility] Comment on above: Performed By: #### 9 2498 #### [facility] of [address], [address] [place] [address] Housekeeping Lead: Daniele Carlson MD Sodium [Moles/Vol] 142 mmol/L Normal 135-146 [facility] Comment on above: Performed By: #### 9 2498 #### [facility] of [address], [address] [place] [address] Housekeeping Lead: Daniele Carlson MD Urea nitrogen [Mass/Vol] 17 mg/dL Normal 7-25 [facility] Comment on above: Performed By: #### 9 2498 #### [facility] [place] [address] Housekeeping Lead: Daniele Carlson MD [facility] METABOLIC PANE [facility] 11-06-2024 Albumin [Mass/Vol] 4.1 g/dL Normal 3.6-5.1 [facility] Comment on above: Order Comment: FASTI NG:NO FASTING: NO Performed By: #### 1 0231 #### [facility] of [address], [address] [place] [address] Housekeeping Lead: Daniele Carlson MD Albumin/Globulin [Mass ratio] 1.8 {ratio} Normal 1.0-2.5 [facility] Comment on above: Order Comment: FASTI NG:NO FASTING: NO Performed By: #### 1 0231 #### [facility] of [address], [address] [place] [address] Housekeeping Lead: Daniele Carlson MD ALP [Catalytic activity/Vol] 70 U/L Normal 35-144 [facility] Comment on above: Order Comment: FASTI NG:NO FASTING: NO Performed By: #### 1 0231 #### [facility] [address], [address] [place] [address] Housekeeping Lead: Daniele Carlson MD ALT [Catalytic activity/Vol] 27 U/L Normal 9-46 [facility] Comment on above: Order Comment: FASTI NG:NO FASTING: NO Performed By: #### 1 0231 #### [facility] [address], [address] [place] [address] Housekeeping Lead: Daniele Carlson MD AST [Catalytic activity/Vol] 23 U/L Normal 10-35 [facility] Comment on above: Order Comment: FASTI NG:NO FASTING: NO Performed By: #### 1 1 #### [facility] [address], [address] [place] [address] Housekeeping Lead: Daniele Carlson MD Bilirubin [Mass/Vol] 0.8 mg/dL Normal 0.2-1.2 [facility] Comment on above: Order Comment: FASTI NG:NO FASTING: NO Performed By: #### 1 0231 #### [facility] [place] [address] Housekeeping Lead: Daniele Carlson MD BUN/CREATININE RATIO SEE NOTE: Normal 6-22 [facility] Comment on above: Order Comment: FASTI NG:NO FASTING: NO Result Comment: Not Reported: BUN and Creatinine are within reference range. Performed By: #### 1 0231 #### [facility] of [address], [address] [place] [address] Housekeeping Lead: Daniele Carlson MD Calcium [Mass/Vol] 9.3 mg/dL Normal 8.6-10.3 [facility] Comment on above: Order Comment: FASTI NG:NO FASTING: NO Performed By: #### 1 0231 #### [facility] [address], [address] [place] [address] Housekeeping Lead: Daniele Carlson MD Chloride [Moles/Vol] 102 mmol/L Normal 98-110 [facility] Comment on above: Order Comment: FASTI NG:NO FASTING: NO Performed By: #### 1 0231 #### [facility] [place] [address] Housekeeping Lead: Daniele Carlson MD CO2 [Moles/Vol] 27 mmol/L Normal 20-32 [facility] Comment on above: Order Comment: FASTI NG:NO FASTING: NO Performed By: #### 1 0231 #### [facility] [address], [address] [place] [address] Housekeeping Lead: Daniele Carlson MD Creatinine [Mass/Vol] 1.11 mg/dL Normal 0.70-1.22 [facility] Comment on above: Order Comment: FASTI NG:NO FASTING: NO Performed By: #### 1 1 #### [facility] [place] [address] Housekeeping Lead: Daniele Carlson MD GFR/1.73 sq M.predicted among non-blacks MDRD (S/P/Bld) [Vol rate/Area] 67 mL/min/{1.73_m2} Normal > OR = 60 [facility] Comment on above: Order Comment: FASTI NG:NO FASTING: NO Performed By: #### 1 0231 #### [facility] [place] [address] Housekeeping Lead: Daniele Carlson MD Globulin (S) [Mass/Vol] 2.3 g/dL Normal 1.9-3.7 [facility] Comment on above: Order Comment: FASTI NG:NO FASTING: NO Performed By: #### 1 0231 #### [facility] [place] [address] Housekeeping Lead: Daniele Carlson MD Glucose [Mass/Vol] 127 mg/dL Normal 65-139 [facility] Comment on above: Order Comment: FASTI NG:NO FASTING: NO Result Comment: Non-fasting reference interval For someone without known diabetes, a glucose value >125 mg/dL indicates that they may have diabetes and this should be confirmed with a follow-up test. Performed By: #### 1 0231 #### [facility] [place] [address] Housekeeping Lead: Daniele Carlson MD Potassium [Moles/Vol] 3.5 mmol/L Normal 3.5-5.[address] [facility] Comment on above: Order Comment: FASTI NG:NO FASTING: NO Performed By: #### 1 0231 #### [facility] [place] [address] Housekeeping Lead: Daniele Carlson MD Protein [Mass/Vol] 6.4 g/dL Normal 6.1-8.1 [facility] Comment on above: Order Comment: FASTI NG:NO FASTING: NO Performed By: #### 1 0231 #### [facility] [place] [address] Housekeeping Lead: Daniele Carlson MD Sodium [Moles/Vol] 143 mmol/L Normal 135-146 [facility] Comment on above: Order Comment: FASTI NG:NO FASTING: NO Performed By: #### 1 0231 #### [facility] [place] [address] Housekeeping Lead: Daniele Carlson MD Urea nitrogen [Mass/Vol] 17 mg/dL Normal 7-25 [facility] Comment on above: Order Comment: FASTI NG:NO FASTING: NO Performed By: #### 1 0231 #### [facility] [place] [address] Housekeeping Lead: Daniele Carlson MD XR Knee - bilateral 4 Viewso n 10-22-2024 [place] [address] XRay Report Signed Patient: TAURUS GARCIA MR#: [id number] : 1945 Acct:[id number] Age/Sex: 79 / M ADM Date: 10/22/24 Loc: RAD Attending Dr: France Wyman M.D. Ordering Physician: France Wyman M.D. Date of Service: 10/22/24 Procedure(s): XR knee ARCHIE 4V Accession Number(s): [id number] cc: KOMAL SCHAFFER ; France Wyman M.D. The [place] [id number] Patient Name: TAURUS GARCIA MRN: [facility]:[id number] date: 1945 Sex: M Assigned Patient Location: [facility] Current Patient Location: [facility] Accession/Order Number: [id number] Exam Date: 10/22/2024 15:22 Report Date: 10/22/2024 [...] Aide Moe M.D.10/22/2024 3:26 PM Dictation Location: [place] [address] Electronically authenticated by: [id number] Y Date: 10/22/2024 15:26 Dictated By: Aide Moe M.D. 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 Ordering Physician: France Wyman M.D. Date of Service: 10/22/24 Procedure(s): XR knee ARCHIE 4V Accession Number(s): [id number] cc: KOMAL SCHAFFER ; France Wyman M.D. [place] [address] Patient Name: TAURUS GARCIA MRN: [facility]:[id number] date: 1945 Sex: M Assigned Patient Location: [facility] Current Patient Location: [facility] Accession/Order Number: [id number] Exam Date: 10/22/2024 15:22 Report Date: 10/22/2024 [...] Aide Moe M.D.10/22/2024 3:26 PM Dictation Location: [place] [address] Electronically authenticated by: [id number] Y Date: 10/22/2024 15:26 Dictated By: Aide Moe M.D. 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 Radiology Study observation (narrative) [facility] XR Knee - bilateral 4 ViewsO rdered By: Radiologist Radiology on 10-22-2024 [facility] Work Phone: COMPREHENSIVE METABOLIC PANE [facility] 10-16-2024 Albumin [Mass/Vol] 3.9 g/dL Normal 3.6-5.1 [facility] Comment on above: Order Comment: DIFFI CULT DRAW- 10/14/2024 FASTING:YES FASTING: YES Performed By: #### 1 0231 #### [facility] of [address], [address] [place] [address] Housekeeping Lead: Daniele Carlson MD Albumin/Globulin [Mass ratio] 1.9 {ratio} Normal 1.0-2.5 [facility] Comment on above: Order Comment: DIFFI CULT DRAW- 10/14/2024 FASTING:YES FASTING: YES Performed By: #### 1 0231 #### [facility] of [address], [address] [place] [address] Housekeeping Lead: Daniele Carlson MD ALP [Catalytic activity/Vol] 74 U/L Normal 35-144 [facility] Comment on above: Order Comment: DIFFI CULT DRAW- 10/14/2024 FASTING:YES FASTING: YES Performed By: #### 1 0231 #### [facility] [place] [address] Housekeeping Lead: Daniele Carlson MD ALT [Catalytic activity/Vol] 24 U/L Normal 9-46 [facility] Comment on above: Order Comment: DIFFI CULT DRAW- 10/14/2024 FASTING:YES FASTING: YES Result Comment: Your request to have a duplicate copy faxed has been acknowledged. Queued to: [phone] Performed By: #### 1 0231 #### [facility] of [address], [address] [place] [address] Housekeeping Lead: Daniele Carlson MD AST [Catalytic activity/Vol] 21 U/L Normal 10-35 [facility] Comment on above: Order Comment: DIFFI CULT DRAW- 10/14/2024 FASTING:YES FASTING: YES Performed By: #### 1 0231 #### [facility] [address], [address] [place] [address] Housekeeping Lead: Daniele Carlson MD Bilirubin [Mass/Vol] 0.9 mg/dL Normal 0.2-1.2 [facility] Comment on above: Order Comment: DIFFI CULT DRAW- 10/14/2024 FASTING:YES FASTING: YES Performed By: #### 1 0231 #### [facility] [place] [address] Housekeeping Lead: Daniele Carlson MD BUN/CREATININE RATIO SEE NOTE: Normal 6-22 [facility] Comment on above: Order Comment: DIFFI CULT DRAW- 10/14/2024 FASTING:YES FASTING: YES Result Comment: Not Reported: BUN and Creatinine are within reference range. Performed By: #### 1 0231 #### [facility] [place] [address] Housekeeping Lead: Daniele Carlson MD Calcium [Mass/Vol] 8.6 mg/dL Normal 8.6-10.3 [facility] Comment on above: Order Comment: DIFFI CULT DRAW- 10/14/2024 FASTING:YES FASTING: YES Performed By: #### 1 0231 #### [facility] [place] [address] Housekeeping Lead: Daniele Carlson MD Chloride [Moles/Vol] 104 mmol/L Normal 98-110 [facility] Comment on above: Order Comment: DIFFI CULT DRAW- 10/14/2024 FASTING:YES FASTING: YES Performed By: #### 1 0231 #### [facility] [place] [address] Housekeeping Lead: Daniele Carlson MD CO2 [Moles/Vol] 28 mmol/L Normal 20-32 [facility] Comment on above: Order Comment: DIFFI CULT DRAW- 10/14/2024 FASTING:YES FASTING: YES Performed By: #### 1 0231 #### [facility] [place] [address] Housekeeping Lead: Daniele Carlson MD Creatinine [Mass/Vol] 1.08 mg/dL Normal 0.70-1.[address] [facility] Comment on above: Order Comment: DIFFI CULT DRAW- 10/14/2024 FASTING:YES FASTING: YES Performed By: #### 1 0231 #### [facility] [address], [address] [place] [address] Housekeeping Lead: Daniele Carlson MD GFR/1.73 sq M.predicted among non-blacks MDRD (S/P/Bld) [Vol rate/Area] 69 mL/min/{1.73_m2} Normal > OR = 60 [facility] Comment on above: Order Comment: DIFFI CULT DRAW- 10/14/2024 FASTING:YES FASTING: YES Performed By: #### 1 0231 #### [facility] [address], [address] [place] [address] Housekeeping Lead: Daniele Carlson MD Globulin (S) [Mass/Vol] 2.1 g/dL Normal 1.9-3.7 [facility] Comment on above: Order Comment: DIFFI CULT DRAW- 10/14/2024 FASTING:YES FASTING: YES Performed By: #### 1 0231 #### [facility] [address], [address] [place] [address] Housekeeping Lead: Daniele Carlson MD Glucose [Mass/Vol] 111 mg/dL High 65-99 [facility] Comment on above: Order Comment: DIFFI CULT DRAW- 10/14/2024 FASTING:YES FASTING: YES Result Comment: Fasting reference interval For someone without known diabetes, a glucose value between 100 and 125 mg/dL is consistent with prediabetes and should be confirmed with a follow-up test. Performed By: #### 1 0231 #### [facility] [address], [address] [place] [address] Housekeeping Lead: Daniele Carlson MD Potassium [Moles/Vol] 3.6 mmol/L Normal 3.5-5.[address] [facility] Comment on above: Order Comment: DIFFI CULT DRAW- 10/14/2024 FASTING:YES FASTING: YES Performed By: #### 1 0231 #### [facility] [address], [address] [place] [address] Housekeeping Lead: Daniele Carlson MD Protein [Mass/Vol] 6.0 g/dL Low 6.1-8.1 [facility] Comment on above: Order Comment: DIFFI CULT DRAW- 10/14/2024 FASTING:YES FASTING: YES Performed By: #### 1 0231 #### [facility] [address], [address] [place] [address] Housekeeping Lead: Daniele Carlson MD Sodium [Moles/Vol] 143 mmol/L Normal 135-146 [facility] Comment on above: Order Comment: DIFFI CULT DRAW- 10/14/2024 FASTING:YES FASTING: YES Performed By: #### 1 0231 #### [facility] [address], [address] [place] [address] Housekeeping Lead: Daniele Carlson MD Urea nitrogen [Mass/Vol] 18 mg/dL Normal 7-25 [facility] Comment on above: Order Comment: DIFFI CULT DRAW- 10/14/2024 FASTING:YES FASTING: YES Performed By: #### 1 0231 #### [facility] [address], [address] [place] [address] Housekeeping Lead: Daniele Carlson MD Laboratory - Hematology and Cell countson 09-17-2024 HbA1c (Bld) [Mass fraction] 6.2 % [facility] No Panel Informationon 09-17 Interpretation and review of laboratory results Abnormal [facility] Basic Metabolic Panelon 08-22 Anion gap [Moles/Vol] 8.9 mmol/L Normal 6.0-15.0 [facility] Comment on above: Performed By: #### B MP, CBC ####[facility] [address] [place] [address] [facility] Calcium [Mass/Vol] 8.9 mg/dL Normal 8.6-10.3 [facility] Comment on above: Performed By: #### B MP, CBC ####[facility] [address] [place] [address] [facility] Chloride [Moles/Vol] 106 mmol/L Normal 98-107 [facility] Comment on above: Performed By: #### B MP, CBC ####[address] [address] [facility] CO2 [Moles/Vol] 29.7 mmol/L Normal 21.0-31.0 [facility] Comment on above: Performed By: #### B MP, CBC ####[address] [address] [facility] Creatinine [Mass/Vol] 0.97 mg/dL Normal 0.70-1.30 [facility] Comment on above: Performed By: #### B MP, CBC ####[address] [address] [place] Creatinine Clr Calc Pharmacy 83.23 Normal [facility] Comment on above: Result Comment: PERF ORMED BY:[address] [place], [place] [phone] MEDICAL DIRECTORRHONDA MCLEAN M.D. Performed By: #### B MP, CBC ####[place] [id number] [facility] GFR/1.73 sq M.predicted MDRD (S/P/Bld) [Vol rate/Area] mL/min/{1.73_m2} Normal [facility] Comment on above: Performed By: #### B MP, CBC ####[place] [id number] [facility] Glucose [Mass/Vol] 108 mg/dL High 70-100 [facility] Comment on above: Result Comment: [place] Glucose Reference Range is dependent on time and content of last meal. Glucose of more than 200 mg/dL in a nonstressed, ambulatory subject supports the diagnosis of Diabetes Mellitus. ADA recommended reference range Performed By: #### B MP, CBC ####[place] [id number] [facility] Potassium [Moles/Vol] 3.6 mmol/L Normal 3.5-5.1 [facility] Comment on above: Performed By: #### B MP, CBC ####[place] [id number] [facility] Sodium [Moles/Vol] 141 mmol/L Normal 136-145 [facility] Comment on above: Performed By: #### B MP, CBC ####[facility] [place] [address] [facility] Urea nitrogen [Mass/Vol] 20 mg/dL Normal 7-25 [facility] Comment on above: Performed By: #### B MP, CBC ####[facility] [place] [address] [facility] Basophils Auto (Bld) [#/Vol] Ordered By: Denzel Zamora on 09-13-2024 Basophils (Bld) [#/Vol] Automated basophil count 0.0-0.2 [facility] Basophils/100 WBC Auto (Bld) Ordered By: Denzel Zamora on 09-13-2024 Basophils/100 WBC (Bld) Automated basophil % . [facility] Calcium [Mass/volume] in Ser um or PlasmaOrdered By: Denzel Zamora on 09-13-2024 Calcium [Mass/Vol] Calcium [Mass/volume ] in Serum or Plasma 8.6-10.3 [facility] Carbon dioxide, total [Moles /volume] in Serum or PlasmaOrdered By: Denzel Zamora on 09-13-2024 CO2 [Moles/Vol] Carbon dioxide, tota l [Moles/volume] in Serum or Plasma 21.0-31.0 [facility] Chloride [Moles/volume] in S [place] or PlasmaOrdered By: Denzel Zamora on 09-13-2024 Chloride [Moles/Vol] Chloride [Moles/vol ume] in Serum or Plasma 98-107 [facility] Complete Blood Count Auto Di ffon 09-13-2024 Basophils (Bld) [#/Vol] 0.0 10*3/uL Normal 0.0-0.2 [facility] Comment on above: Result Comment: PERF ORMED BY:[address] [place], [place] [id number] MEDICAL DIRECTORRHONDA MCLEAN M.D. Performed By: #### B MP, CBC ####[address] Basophils/100 WBC (Bld) 0.4 % Normal . [facility] Comment on above: Performed By: #### B MP, CBC ####[address] Eosinophils (Bld) [#/Vol] 0.0 10*3/uL Normal 0.0-0.45 [facility] Comment on above: Performed By: #### B MP, CBC ####[address] Eosinophils/100 WBC (Bld) 0.5 % Normal . [facility] Comment on above: Performed By: #### B MP, CBC ####[address] Erythrocyte distribution width (RBC) [Ratio] 17.1 % High 12.0-14.8 [facility] Comment on above: Performed By: #### B MP, CBC ####[address] Hematocrit (Bld) [Volume fraction] 38.2 % Low 38.8-50.0 [facility] Comment on above: Performed By: #### B MP, CBC ####[address] Hemoglobin (Bld) [Mass/Vol] 12.8 g/dL Low 13.0-17.0 [facility] Comment on above: Performed By: #### B MP, CBC ####[address] Lymphocytes (Bld) [#/Vol] 1.9 10*3/uL Normal 1.00-4.8 [facility] Comment on above: Performed By: #### B MP, CBC ####[address] Lymphocytes/100 WBC (Bld) 23.2 % Normal . [facility] Comment on above: Performed By: #### B MP, CBC ####[address] [place] [address] [place] MCH (RBC) [Entitic mass] 30.6 pg Normal 27.5-35.2 [facility] Comment on above: Performed By: #### B MP, CBC ####[address] MCV (RBC) [Entitic vol] 91.5 fL Normal 83.5-101 [facility] Comment on above: Performed By: #### B MP, CBC ####[address] Mean Corpuscular HGB Conc 33.4 g/dL Normal 32.5-35.6 [facility] Comment on above: Performed By: #### B MP, CBC ####[address] Monocytes (Bld) [#/Vol] 0.8 10*3/uL Normal 0.0-0.8 [facility] Comment on above: Performed By: #### B MP, CBC ####[address] Monocytes/100 WBC (Bld) 10.5 % Normal . [facility] Comment on above: Performed By: #### B MP, CBC ####[address] Neutrophils (Bld) [#/Vol] 5.2 10*3/uL Normal 1.8-7.7 [facility] Comment on above: Performed By: #### B MP, CBC ####[address] Neutrophils/100 WBC (Bld) 65.4 % Normal . [facility] Comment on above: Performed By: #### B MP, CBC ####[address] NRBC% 0.0 /100{WBC} Normal 0-0.5 [facility] Comment on above: Performed By: #### B MP, CBC ####[address] Platelet mean volume (Bld) [Entitic vol] 8.5 fL Normal 6.6-10.1 [facility] Comment on above: Performed By: #### B MP, CBC ####[address] Platelets (Bld) [#/Vol] 217 10*3/uL Normal 150-450 [facility] Comment on above: Performed By: #### B MP, CBC ####[address] RBC (Bld) [#/Vol] 4.18 10*6/uL Normal 3.90-5.60 [facility] Comment on above: Performed By: #### B MP, CBC ####[address] WBC (Bld) [#/Vol] 8.0 10*3/uL Normal 4.1-10.5 [facility] Comment on above: Performed By: #### B MP, CBC ####[address] Creatinine [Mass/volume] in Serum or PlasmaOrdered By: Denzel Zamora on 09-13-2024 Creatinine [Mass/Vol] Creatinine [Mass/v olume] in Serum or Plasma 0.70-1.30 [facility] Eosinophils Auto (Bld) [#/Vo l]Ordered By: Denzel Zamora on 09-13-2024 Eosinophils (Bld) [#/Vol] Automated eosinophil count 0.0-0.45 [facility] Eosinophils/100 WBC Auto (Bl d)Ordered By: Denzel Zamora on 09-13-2024 Eosinophils/100 WBC (Bld) Automated eosinophil % . [facility] Erythrocyte distribution wid th Auto (RBC) [Ratio]Ordered By: Denzel Zamora on 09-13-2024 Erythrocyte distribution width (RBC) [Ratio] Erythrocyte distribution width [Ratio] by Automated count High 12.0-14.8 [facility] Glucose [Mass/volume] in Ser um or PlasmaOrdered By: Denzel Zamora on 09-13-2024 Glucose [Mass/Vol] Glucose [Mass/volume ] in Serum or Plasma High 70-100 [facility] Hematocrit Auto (Bld) [Volum e fraction]Ordered By: Denzel Zamora on 09-13-2024 Hematocrit (Bld) [Volume fraction] Hematocrit [Volume Fraction] of Blood by Automated count Low 38.8-50.0 [facility] Hemoglobin [Mass/volume] in BloodOrdered By: Denzel Zamora on 09-13-2024 Hemoglobin (Bld) [Mass/Vol] Hemoglobin [Mass/volume] in Blood Low 13.0-17.0 [facility] Leukocytes [#/volume] correc blessing for nucleated erythrocytes in Blood by Automated counOrdered By: Denzel Zamora on 09-13-2024 WBC corrected for nucl RBC Auto (Bld) [#/Vol] Leukocytes [#/volume] corrected for nucleated erythrocytes in Blood by Automated coun 4.1-10.5 [facility] Lymphocytes Auto (Bld) [#/Vo l]Ordered By: Denzel Zamora on 09-13-2024 Lymphocytes (Bld) [#/Vol] Lymphocytes [#/volume] in Blood by Automated count 1.00-4.8 [facility] Lymphocytes/100 WBC Auto (Bl d)Ordered By: Denzel Zamora on 09-13-2024 Lymphocytes/100 WBC (Bld) Lymphocytes/100 leukocytes in Blood by Automated count . [facility] MCH Auto (RBC) [Entitic mass ]Ordered By: Denzel Zamora on 09-13-2024 MCH (RBC) [Entitic mass] MCH [Entitic mass] by Automated count 27.5-35.2 [facility] MCHC Auto (RBC) [Mass/Vol]Or dered By: Denzel Zamora on 09-13-2024 MCHC (RBC) [Mass/Vol] MCHC [Mass/volume] by Automated count 32.5-35.6 [facility] MCV Auto (RBC) [Entitic vol] Ordered By: Denzel Zamora on 09-13-2024 MCV (RBC) [Entitic vol] MCV [Entitic volume] by Automated count 83.5-101 [facility] Monocytes Auto (Bld) [#/Vol] Ordered By: Denzel Zamora on 09-13-2024 Monocytes (Bld) [#/Vol] Automated blood monocyte count 0.0-0.8 [facility] Monocytes/100 WBC Auto (Bld) Ordered By: Denzel Zamora on 09-13-2024 Monocytes/100 WBC (Bld) Automated monocyte % . [facility] Neutrophils Auto (Bld) [#/Vo l]Ordered By: Denzel Zamora on 09-13-2024 Neutrophils (Bld) [#/Vol] Neutrophils [#/volume] in Blood by Automated count 1.8-7.7 [facility] Neutrophils/100 WBC Auto (Bl d)Ordered By: Denzel Zamora on 09-13-2024 Neutrophils/100 WBC (Bld) Automated neutrophil % . [facility] No Panel InformationOrdered By: Denzel Zamora on 09-13-2024 > 60.0 mL/Min [facility] 83.23 [facility] Nucleated erythrocytes [Pres ence] in Blood by Automated countOrdered By: Denzel Zamora on 09-13-2024 Nucleated RBC Auto Ql (Bld) Nucleated erythrocytes [Presence] in Blood by Automated count 0-0.5 [facility] Platelet mean volume Auto (B ld) [Entitic vol]Ordered By: Denzel Zamora on 09-13-2024 Platelet mean volume (Bld) [Entitic vol] Platelet mean volume [Entitic volume] in Blood by Automated count 6.6-10.1 [facility] Platelets Auto (Bld) [#/Vol] Ordered By: Denzel Zamora on 09-13-2024 Platelets (Bld) [#/Vol] Platelets [#/volume] in Blood by Automated count 150-450 [facility] Potassium [Moles/volume] in Serum or PlasmaOrdered By: Denzel Zamora on 09-13-2024 Potassium [Moles/Vol] Potassium [Moles/v olume] in Serum or Plasma 3.5-5.1 [facility] RBC Auto (Bld) [#/Vol]Ordere d By: Denzel Zamora on 09-13-2024 RBC (Bld) [#/Vol] Erythrocytes [#/volu me] in Blood by Automated count 3.90-5.60 [facility] Serum or plasma anion gap de terminationOrdered By: Denzel Zamora on 09-13-2024 Anion gap [Moles/Vol] Serum or plasma an ion gap determination 6.0-15.0 [facility] Sodium [Moles/volume] in Ser um or PlasmaOrdered By: Denzel Zamora on 09-13-2024 Sodium [Moles/Vol] Sodium [Moles/volume ] in Serum or Plasma 136-145 [facility] Urea nitrogen [Mass/volume] in Serum or PlasmaOrdered By: Denzel Zamora on 09-13-2024 Urea nitrogen [Mass/Vol] Urea nitrogen [Mass/volume] in Serum or Plasma 7-25 [facility] WBC Auto (Bld) [#/Vol]Ordere d By: Denzel Zamora on 09-13-2024 WBC (Bld) [#/Vol] Leukocytes [#/volume ] in Blood by Automated count 4.1-10.5 [facility] Basic Metabolic Panelon 08-22 Anion gap [Moles/Vol] 10.9 mmol/L Normal 6.0-15.0 [facility] Comment on above: Performed By: #### C BC, BMP ####[address] Calcium [Mass/Vol] 8.9 mg/dL Normal 8.6-10.3 [facility] Comment on above: Performed By: #### C BC, BMP ####[place] [id number] [facility] Chloride [Moles/Vol] 107 mmol/L Normal 98-107 [facility] Comment on above: Performed By: #### C BC, BMP ####[place] [id number] [facility] CO2 [Moles/Vol] 27.2 mmol/L Normal 21.0-31.0 [facility] Comment on above: Performed By: #### C BC, BMP ####[place] [id number] [facility] Creatinine [Mass/Vol] 1.10 mg/dL Normal 0.70-1.30 [facility] Comment on above: Performed By: #### C VERÓNICA, BMP ####[place] [id number] [place] [id number] [facility] Creatinine Clr Calc Pharmacy 73.39 Normal [facility] Comment on above: Result Comment: PERF ORMED BY:[address] [place], [place] [phone] MEDICAL DIRECTORRHONDA MCLEAN M.D. Performed By: #### C VERÓNICA, BMP ####[place] [id number] [place] [id number] [facility] GFR/1.73 sq M.predicted MDRD (S/P/Bld) [Vol rate/Area] mL/min/{1.73_m2} Normal [facility] Comment on above: Performed By: #### C VERÓNICA, BMP ####[address] Glucose [Mass/Vol] 131 mg/dL High 70-100 [facility] Comment on above: Result Comment: [place] Glucose Reference Range is dependent on time and content of last meal. Glucose of more than 200 mg/dL in a nonstressed, ambulatory subject supports the diagnosis of Diabetes Mellitus. ADA recommended reference range Performed By: #### C VERÓNICA, BMP ####[place] [id number] [facility] Potassium [Moles/Vol] 4.1 mmol/L Normal 3.5-5.1 [facility] Comment on above: Result Comment: Hemo lysis is present at a level that could interfere with the result. Contact lab if redraw is required Performed By: #### C BC, BMP ####[place] [id number] [facility] Sodium [Moles/Vol] 141 mmol/L Normal 136-145 [facility] Comment on above: Performed By: #### C BC, BMP ####[place] [id number] [facility] Urea nitrogen [Mass/Vol] 22 mg/dL Normal 7-25 [facility] Comment on above: Performed By: #### C VERÓNICA, BMP ####[address] Complete Blood Count Auto Di ffon 09-12-2024 Basophils (Bld) [#/Vol] 0.1 10*3/uL Normal 0.0-0.2 [facility] Comment on above: Result Comment: PERF ORMED BY:[address] [place], [place] [id number] MEDICAL DIRECTORRHONDA MCLEAN M.D. Performed By: #### C VERÓNICA, BMP ####[address] Basophils/100 WBC (Bld) 0.5 % Normal . [facility] Comment on above: Performed By: #### C VERÓNICA, BMP ####[address] Eosinophils (Bld) [#/Vol] 0.0 10*3/uL Normal 0.0-0.45 [facility] Comment on above: Performed By: #### C VERÓNICA, BMP ####[address] Eosinophils/100 WBC (Bld) 0.1 % Normal . [facility] Comment on above: Performed By: #### C VERÓNICA, BMP ####[address] Erythrocyte distribution width (RBC) [Ratio] 16.8 % High 12.0-14.8 [facility] Comment on above: Performed By: #### C BC, BMP ####[address] Hematocrit (Bld) [Volume fraction] 39.6 % Normal 38.8-50.0 [facility] Comment on above: Performed By: #### C VERÓNICA, BMP ####[address] Hemoglobin (Bld) [Mass/Vol] 13.2 g/dL Normal 13.0-17.0 [facility] Comment on above: Performed By: #### C BC, BMP ####[address] Lymphocytes (Bld) [#/Vol] 0.7 10*3/uL Low 1.00-4.8 [facility] Comment on above: Performed By: #### C BC, BMP ####[address] Lymphocytes/100 WBC (Bld) 6.7 % Normal . [facility] Comment on above: Performed By: #### C BC, BMP ####[address] MCH (RBC) [Entitic mass] 30.5 pg Normal 27.5-35.2 [facility] Comment on above: Performed By: #### C BC, BMP ####[address] MCV (RBC) [Entitic vol] 91.4 fL Normal 83.5-101 [facility] Comment on above: Performed By: #### C BC, BMP ####[address] Mean Corpuscular HGB Conc 33.4 g/dL Normal 32.5-35.6 [facility] Comment on above: Performed By: #### C BC, BMP ####[address] Monocytes (Bld) [#/Vol] 1.0 10*3/uL High 0.0-0.8 [facility] Comment on above: Performed By: #### C BC, BMP ####[address] Monocytes/100 WBC (Bld) 9.6 % Normal . [facility] Comment on above: Performed By: #### C BC, BMP ####[address] Neutrophils (Bld) [#/Vol] 8.9 10*3/uL High 1.8-7.7 [facility] Comment on above: Performed By: #### C VERÓNICA, BMP ####[address] Neutrophils/100 WBC (Bld) 83.1 % Normal . [facility] Comment on above: Performed By: #### C BC, BMP ####[address] NRBC% 0.1 /100{WBC} Normal 0-0.5 [facility] Comment on above: Performed By: #### C VERÓNICA, BMP ####[address] Platelet mean volume (Bld) [Entitic vol] 8.3 fL Normal 6.6-10.1 [facility] Comment on above: Performed By: #### C VERÓNICA, BMP ####[address] Platelets (Bld) [#/Vol] 208 10*3/uL Normal 150-450 [facility] Comment on above: Performed By: #### C VERÓNICA, BMP ####[address] RBC (Bld) [#/Vol] 4.33 10*6/uL Normal 3.90-5.60 [facility] Comment on above: Performed By: #### C VERÓNICA, BMP ####[address] WBC (Bld) [#/Vol] 10.7 10*3/uL High 4.1-10.5 [facility] Comment on above: Performed By: #### C VERÓNICA, BMP ####[address] Acanthocytes [Presence] in B lood by Light microscopyOrdered By: Joseline Barrera on 09-11-2024 Acanthocytes LM Ql (Bld) Acanthocytes [Presence] in Blood by Light microscopy [facility] Anisocytosis LM Ql (Bld)Orde red By: Joseline Barrera on 09-11-2024 Anisocytosis Ql (Bld) Anisocytosis [Pres ence] in Blood by Light microscopy [facility] B-Type Natriuretic Peptideon 09-11-2024 Natriuretic peptide B (Bld) [Mass/Vol] 72.0 pg/mL Normal 5-100 [facility] Comment on above: Result Comment: PERF ORMED BY:[address] [place], [place] [phone] MEDICAL DIRECTORRHONDA MCLEAN M.D. Performed By: #### B MP, BNP, DIFF CBC, MG, HS TROP ####[place] [id number] [facility] Basic Metabolic Panelon 08-22 Anion gap [Moles/Vol] 10.9 mmol/L Normal 6.0-15.[address] [facility] Comment on above: Order Comment: NOTIF IED SUDHAKAR ARCHULETA 1ST Specimen hemolyzed, redraw requested Performed By: #### B MP, BNP, DIFF CBC, MG, HS TROP ####[address] [address] [facility] Calcium [Mass/Vol] 9.2 mg/dL Normal 8.6-10.3 [facility] Comment on above: Order Comment: NOTIF IED SUDHAKAR ARCHULETA 1ST Specimen hemolyzed, redraw requested Performed By: #### B MP, BNP, DIFF CBC, MG, HS TROP ####[place] [id number] [facility] Chloride [Moles/Vol] 104 mmol/L Normal 98-107 [facility] Comment on above: Order Comment: NOTIF IED SUDHAKAR KATHE 1ST Specimen hemolyzed, redraw requested Performed By: #### B MP, BNP, DIFF CBC, MG, HS TROP ####[place] [id number] [facility] CO2 [Moles/Vol] 30.9 mmol/L Normal 21.0-31.0 [facility] Comment on above: Order Comment: NOTIF IED SUDHAKAR KATHE 1ST Specimen hemolyzed, redraw requested Performed By: #### B MP, BNP, DIFF CBC, MG, HS TROP ####[place] [id number] [facility] Creatinine [Mass/Vol] 1.49 mg/dL High 0.70-1.30 [facility] Comment on above: Order Comment: NOTIF IED SUDHAKAR ARCHULETA 1ST Specimen hemolyzed, redraw requested Performed By: #### B MP, BNP, DIFF CBC, MG, HS TROP ####[place] [id number] [facility] Creatinine Clr Calc Pharmacy 54.21 Normal [facility] Comment on above: Order Comment: NOTIF SOD SUDHAKAR ARCHULETA 1ST Specimen hemolyzed, redraw requested Result Comment: PERF ORMED BY:[address] [place], [place] [phone] MEDICAL DIRECTORRHONDA MCLEAN M.D. Performed By: #### B MP, BNP, DIFF CBC, MG, HS TROP ####[place] [id number] [facility] Estimated GFR 47.149 mL/Min Normal [facility] Comment on above: Order Comment: NOTIF [place] ARCHULETA 1ST Specimen hemolyzed, redraw requested Performed By: #### B MP, BNP, DIFF CBC, MG, HS TROP ####[place] [id number] [facility] Glucose [Mass/Vol] 133 mg/dL High 70-100 [facility] Comment on above: Order Comment: NOTIF [place] ARCHULETA 1ST Specimen hemolyzed, redraw requested Result Comment: [place] Glucose Reference Range is dependent on time and content of last meal. Glucose of more than 200 mg/dL in a nonstressed, ambulatory subject supports the diagnosis of Diabetes Mellitus. ADA recommended reference range Performed By: #### B MP, BNP, DIFF CBC, MG, HS TROP ####[place] [id number] [facility] Potassium [Moles/Vol] 3.8 mmol/L Normal 3.5-5.1 [facility] Comment on above: Order Comment: NOTIF IED SUDHAKAR ARCHULETA 1ST Specimen hemolyzed, redraw requested Performed By: #### B MP, BNP, DIFF CBC, MG, HS TROP ####[place] [id number] [place] [id number] [facility] Sodium [Moles/Vol] 142 mmol/L Normal 136-145 [facility] Comment on above: Order Comment: NOTIF IED SUDHAKAR ARCHULETA 1ST Specimen hemolyzed, redraw requested Performed By: #### B MP, BNP, DIFF CBC, MG, HS TROP ####[place] [id number] Urea nitrogen [Mass/Vol] 29 mg/dL High 7-25 [facility] Comment on above: Order Comment: NOTIF IED SUDHAKAR ARCHULETA 1ST Specimen hemolyzed, redraw requested Performed By: #### B MP, BNP, DIFF CBC, MG, HS TROP ####[address] Basophils Auto (Bld) [#/Vol] Ordered By: Joseline Barrera on 09-11-2024 Basophils (Bld) [#/Vol] Automated basophil count [facility] Basophils/100 WBC Auto (Bld) Ordered By: Joseline Barrera on 09-11-2024 Basophils/100 WBC (Bld) Automated basophil % [facility] C reactive protein [Mass/vol ume] in Serum or PlasmaOrdered By: Jamel Packer on 09-11-2024 CRP [Mass/Vol] C reactive protein [Mass/volume] in Serum or Plasma High 0.0-0.5 [facility] C-Reactive Proteinon 025 C-Reactive Protein 0.6 mg/dL High 0.0-0.5 [facility] Comment on above: Result Comment: PERF ORMED BY:[place] [address] [address] [place], [place] [phone] MEDICAL DIRECTORRHONDA MCLEAN M.D. Performed By: #### E SR, CRP ####[place] [id number] [facility] COVID Cepheid NegativeOrdere d By: Joseline Barrera on 09-11-2024 SARS-CoV-2 (COVID-19) RNA JAYDE+probe Ql (Unsp spec) COVID Cepheid Negative [facility] COVID-19 / Flu A/B / RSV PCR on 09-11-2024 SARS-CoV-2 (COVID-19) RNA JAYDE+probe Ql (Unsp spec) Normal [facility] Comment on above: Performed By: #### C OVID19 FLU RSV, CEPHEID NEG ####[facility] [id number] [place] [address] [facility] Calcium [Mass/volume] in Ser um or PlasmaOrdered By: Joseline Barrera on 09-11-2024 Calcium [Mass/Vol] Calcium [Mass/volume ] in Serum or Plasma 8.6-10.3 [facility] Carbon dioxide, total [Moles /volume] in Serum or PlasmaOrdered By: Joseline Barrera on 09-11-2024 CO2 [Moles/Vol] Carbon dioxide, tota l [Moles/volume] in Serum or Plasma 21.0-31.0 [facility] Cepheid COVID PCR Negativeon 09-11-2024 SARS-CoV-2 (COVID-19) RNA JAYDE+probe Ql (Unsp spec) Negative Normal Negative [facility] Comment on above: Result Comment: This is a duplicate Cepheid Xpert Xpress CoV-2/Flu/RSV Plus RNA by RT-PCR result to be used for statistical tracking purpose only.PERFORMED BY:[facility] [place], [place] [phone] MEDICAL DIRECTORRHONDA MCLEAN M.D. Performed By: #### C OVID19 FLU RSV, CEPHEID NEG ####[facility] [address] [place] [address] [place] Chloride [Moles/volume] in S char[place] or PlasmaOrdered By: Joseline Barrera on 09-11-2024 Chloride [Moles/Vol] Chloride [Moles/vol ume] in Serum or Plasma 98-107 [facility] Creatinine [Mass/volume] in Serum or PlasmaOrdered By: Joseline Barrera on 09-11-2024 Creatinine [Mass/Vol] Creatinine [Mass/v olume] in Serum or Plasma High 0.70-1.30 [facility] Diff and CBCon 09-11-2024 Acanthocytes Slight Normal [facility] Comment on above: Performed By: #### B MP, BNP, DIFF CBC, MG, HS TROP ####[address] Anisocytosis Ql (Bld) Slight Normal [facility] Comment on above: Performed By: #### B MP, BNP, DIFF CBC, MG, HS TROP ####[address] Erythrocyte distribution width (RBC) [Ratio] 17.1 % High 12.0-14.8 [facility] Comment on above: Performed By: #### B MP, BNP, DIFF CBC, MG, HS TROP ####[address] Hematocrit (Bld) [Volume fraction] 40.0 % Normal 38.8-50.0 [facility] Comment on above: Performed By: #### B MP, BNP, DIFF CBC, MG, HS TROP ####[address] Hemoglobin (Bld) [Mass/Vol] 13.4 g/dL Normal 13.0-17.0 [facility] Comment on above: Performed By: #### B MP, BNP, DIFF CBC, MG, HS TROP ####[address] Lymphocytes/100 WBC (Bld) 24 % Normal 18-42 [facility] Comment on above: Performed By: #### B MP, BNP, DIFF CBC, MG, HS TROP ####[address] MCH (RBC) [Entitic mass] 30.8 pg Normal 27.5-35.2 [facility] Comment on above: Performed By: #### B MP, BNP, DIFF CBC, MG, HS TROP ####[address] MCV (RBC) [Entitic vol] 92.2 fL Normal 83.5-101 [facility] Comment on above: Performed By: #### B MP, BNP, DIFF CBC, MG, HS TROP ####[place] [id number] [facility] Mean Corpuscular HGB Conc 33.4 g/dL Normal 32.5-35.6 [facility] Comment on above: Performed By: #### B MP, BNP, DIFF CBC, MG, HS TROP ####[place] [id number] [facility] Metamyelocytes 1 % High 0-0 [facility] Comment on above: Performed By: #### B MP, BNP, DIFF CBC, MG, HS TROP ####[place] [id number] [facility] Monocytes/100 WBC (Bld) 17.57 % Normal 0.00-20.00 [facility] Comment on above: Performed By: #### B MP, BNP, DIFF CBC, MG, HS TROP ####[address] Monocytes/100 WBC (Bld) 14 % High 2-11 [facility] Comment on above: Performed By: #### B MP, BNP, DIFF CBC, MG, HS TROP ####[place] [id number] [facility] Platelet Estimate Normal Normal Normal [facility] Comment on above: Performed By: #### B MP, BNP, DIFF CBC, MG, HS TROP ####[place] [id number] [facility] Platelet mean volume (Bld) [Entitic vol] 9.2 fL Normal 6.6-10.1 [facility] Comment on above: Performed By: #### B MP, BNP, DIFF CBC, MG, HS TROP ####[place] [id number] [facility] Platelet Morphology Normal Normal Normal [facility] Comment on above: Result Comment: PERF ORMED BY:[address] [place] [id number] MEDICAL DIRECTORRHONDA MCLEAN M.D. Performed By: #### B MP, BNP, DIFF CBC, MG, HS TROP ####[place] [id number] Platelets (Bld) [#/Vol] 233 10*3/uL Normal 150-450 [facility] Comment on above: Performed By: #### B MP, BNP, DIFF CBC, MG, HS TROP ####[address] RBC (Bld) [#/Vol] 4.34 10*6/uL Normal 3.90-5.60 [facility] Comment on above: Performed By: #### B MP, BNP, DIFF CBC, MG, HS TROP ####[place] [id number] [place] [id number] [facility] Segmented neutrophils/100 WBC (Bld) 61 % Normal 50-70 [facility] Comment on above: Performed By: #### B MP, BNP, DIFF CBC, MG, HS TROP ####[place] [id number] [facility] WBC (Bld) [#/Vol] 7.8 10*3/uL Normal 4.1-10.5 [facility] Comment on above: Performed By: #### B MP, BNP, DIFF CBC, MG, HS TROP ####[address] ECG 12 lead ECGon 09-11-2024 ECG 12 lead ECG Normal [facility] Eosinophils Auto (Bld) [#/Vo l]Ordered By: Joseline Barrera on 09-11-2024 Eosinophils (Bld) [#/Vol] Automated eosinophil count [facility] Eosinophils/100 WBC Auto (Bl d)Ordered By: Joseline Barrera on 09-11-2024 Eosinophils/100 WBC (Bld) Automated eosinophil % [facility] Erythrocyte Sedimentation Ra kimberlee 09-11-2024 ESR (Bld) [Velocity] 16 mm/h Normal 0-19 [facility] Comment on above: Result Comment: PERF ORMED BY:[facility] [place], [place] [phone] MEDICAL DIRECTORRHONDA MCLEAN M.D. Performed By: #### E SR, CRP ####[facility] [address] [place] [address] [facility] Erythrocyte distribution wid th Auto (RBC) [Ratio]Ordered By: Joseline Barrera on 09-11-2024 Erythrocyte distribution width (RBC) [Ratio] Erythrocyte distribution width [Ratio] by Automated count High 12.0-14.8 [facility] Erythrocyte morphology findi ng [Identifier] in BloodOrdered By: Joseline Barrera on 09-11-2024 RBC morphology finding Nom (Bld) RBC morphology [facility] Erythrocyte sedimentation ra te by Photometric methodOrdered By: Jamel Packer on 09-11-2024 ESR Photometric method (Bld) [Velocity] Erythrocyte sedimentation rate by Photometric method 0-19 [facility] Glucose [Mass/volume] in Ser um or PlasmaOrdered By: Joseline Barrera on 09-11-2024 Glucose [Mass/Vol] Glucose [Mass/volume ] in Serum or Plasma High 70-100 [facility] Hematocrit Auto (Bld) [Volum e fraction]Ordered By: Joseline Barrera on 09-11-2024 Hematocrit (Bld) [Volume fraction] Hematocrit [Volume Fraction] of Blood by Automated count 38.8-50.0 [facility] Hemoglobin [Mass/volume] in BloodOrdered By: Joseline Barrera on 09-11-2024 Hemoglobin (Bld) [Mass/Vol] Hemoglobin [Mass/volume] in Blood 13.0-17.0 [facility] Leukocytes [#/volume] correc blessing for nucleated erythrocytes in Blood by Automated counOrdered By: Joseline Barrera on 09-11-2024 WBC corrected for nucl RBC Auto (Bld) [#/Vol] Leukocytes [#/volume] corrected for nucleated erythrocytes in Blood by Automated coun 4.1-10.5 [facility] Lymphocytes Auto (Bld) [#/Vo l]Ordered By: Joseline Barrera on 09-11-2024 Lymphocytes (Bld) [#/Vol] Lymphocytes [#/volume] in Blood by Automated count [facility] Lymphocytes/100 WBC Auto (Bl d)Ordered By: Joseline Barrera on 09-11-2024 Lymphocytes/100 WBC (Bld) Lymphocytes/100 leukocytes in Blood by Automated count [facility] Lymphocytes/100 WBC Manual c nt (Bld)Ordered By: Joseline Barrera on 09-11-2024 Lymphocytes/100 WBC (Bld) Lymphocytes/100 leukocytes in Blood by Manual count 18-42 [facility] MCH Auto (RBC) [Entitic mass ]Ordered By: Joesline Barrera on 09-11-2024 MCH (RBC) [Entitic mass] MCH [Entitic mass] by Automated count 27.5-35.2 [facility] MCHC Auto (RBC) [Mass/Vol]Or dered By: Joseline Barrera on 09-11-2024 MCHC (RBC) [Mass/Vol] MCHC [Mass/volume] by Automated count 32.5-35.6 [facility] MCV Auto (RBC) [Entitic vol] Ordered By: Joseline Barrera on 09-11-2024 MCV (RBC) [Entitic vol] MCV [Entitic volume] by Automated count 83.5-101 [facility] Magnesiumon 09-11-2024 Magnesium [Mass/Vol] 2.1 mg/dL Normal 1.9-2.7 [facility] Comment on above: Order Comment: NOTIF IED SUDHAKAR ARCHULETA 1ST Specimen hemolyzed, redraw requested Result Comment: PERF ORMED BY:[place] [address] [place], [place] [phone] MEDICAL DIRECTORRHONDA MCLEAN M.D. Performed By: #### B MP, BNP, DIFF CBC, MG, HS TROP ####[facility] [place] [address] [facility] Magnesium [Mass/volume] in S [place] or PlasmaOrdered By: Joseline Barrera on 09-11-2024 Magnesium [Mass/Vol] Magnesium [Mass/vol ume] in Serum or Plasma 1.9-2.7 [facility] Metamyelocytes/100 WBC Manua l cnt (Bld)Ordered By: Joseline Barrera on 09-11-2024 Metamyelocytes/100 WBC (Bld) Metamyelocytes/100 leukocytes in Blood by Manual count High 0-0 [facility] Monocyte distribution width [Entitic volume] in Blood by AutomatedOrdered By: Joseline Barrera on 09-11-2024 Monocyte distribution width Auto (Bld) [Entitic vol] Monocyte distribution width [Entitic volume] in Blood by Automated 0.00-20.00 [facility] Monocytes Auto (Bld) [#/Vol] Ordered By: Joseline Barrera on 09-11-2024 Monocytes (Bld) [#/Vol] Automated blood monocyte count [facility] Monocytes/100 WBC Auto (Bld) Ordered By: Joseline Barrera on 09-11-2024 Monocytes/100 WBC (Bld) Automated monocyte % [facility] Monocytes/100 WBC Manual cnt (Bld)Ordered By: Joseline Barrera on 09-11-2024 Monocytes/100 WBC (Bld) Monocytes/100 leukocytes in Blood by Manual count High 2-11 [facility] Natriuretic peptide B [Mass/ Vol]Ordered By: Joseline Barrera on 09-11-2024 Natriuretic peptide B (Bld) [Mass/Vol] BNP ser/plas 5-100 [facility] Neutrophils Auto (Bld) [#/Vo l]Ordered By: Joseline Barrera on 09-11-2024 Neutrophils (Bld) [#/Vol] Neutrophils [#/volume] in Blood by Automated count [facility] Neutrophils/100 WBC Auto (Bl d)Ordered By: Joseline Barrera on 09-11-2024 Neutrophils/100 WBC (Bld) Automated neutrophil % [facility] No Panel InformationOrdered By: Joseline Barrera on 09-11-2024 47.149 mL/Min [facility] 54.21 [facility] Nucleated erythrocytes [Pres ence] in Blood by Automated countOrdered By: Joseline Barrera on 09-11-2024 Nucleated RBC Auto Ql (Bld) Nucleated erythrocytes [Presence] in Blood by Automated count [facility] Platelet adequacy [Presence] in Blood by Light microscopyOrdered By: Joseline Barrera on 09-11-2024 Platelets LM Ql (Bld) Platelet adequacy [Presence] in Blood by Light microscopy Normal [facility] Platelet mean volume Auto (B ld) [Entitic vol]Ordered By: Joseline Barrera on 09-11-2024 Platelet mean volume (Bld) [Entitic vol] Platelet mean volume [Entitic volume] in Blood by Automated count 6.6-10.1 [facility] Platelet morphology finding [Identifier] in BloodOrdered By: Joseline Barrera on 09-11-2024 Platelet morphology finding Nom (Bld) Platelet morphology finding [Identifier] in Blood Normal [facility] Platelets Auto (Bld) [#/Vol] Ordered By: Joseline Barrera on 09-11-2024 Platelets (Bld) [#/Vol] Platelets [#/volume] in Blood by Automated count 150-450 [facility] Potassium [Moles/volume] in Serum or PlasmaOrdered By: Joseline Barrera on 09-11-2024 Potassium [Moles/Vol] Potassium [Moles/v olume] in Serum or Plasma 3.5-5.1 [facility] RBC Auto (Bld) [#/Vol]Ordere d By: Joseline Barrera on 09-11-2024 RBC (Bld) [#/Vol] Erythrocytes [#/volu me] in Blood by Automated count 3.90-5.60 [facility] Segmented neutrophils/100 WB C Manual cnt (Bld)Ordered By: Joseline Barrera on 09-11-2024 Segmented neutrophils/100 WBC (Bld) Manual blood segmented neutrophils/100 leukocytes 50-70 [facility] Serum or plasma anion gap de terminationOrdered By: Joseline Barrera on 09-11-2024 Anion gap [Moles/Vol] Serum or plasma an ion gap determination 6.0-15.0 [facility] Sodium [Moles/volume] in Ser um or PlasmaOrdered By: Joseline Barrera on 09-11-2024 Sodium [Moles/Vol] Sodium [Moles/volume ] in Serum or Plasma 136-145 [facility] Troponin I High Sensitivityo n 09-11-2024 Troponin I High Sensitivity 9 Normal 0-20 [facility] Comment on above: Result Comment: The Troponin units of report have been changed to meet the Chest Pain Accreditation requirement, element EC5.M1l2. Troponin units are changed from pg/ml to ng/L. Also, the decimal is removed and results are in whole numbers.PERFORMED BY:[facility] [place], [place] [phone] MEDICAL DIRECTORRHONDA MCLEAN M.D. Performed By: #### B MP, BNP, DIFF CBC, MG, HS TROP ####[facility] [id number] [place] [address] [facility] Troponin I.cardiac [Mass/vol ume] in Serum or Plasma by Detection limit <= 0.01 ng/Ordered By: Joseline Barrera on 09-11-2024 Troponin I.cardiac DL <= 0.01 ng/mL [Mass/Vol] Troponin I.cardiac [Mass/volume] in Serum or Plasma by Detection limit <= 0.01 ng/ 0-20 [facility] Urea nitrogen [Mass/volume] in Serum or PlasmaOrdered By: Joseline Barrera on 09-11-2024 Urea nitrogen [Mass/Vol] Urea nitrogen [Mass/volume] in Serum or Plasma High 03-14 [facility] WBC Auto (Bld) [#/Vol]Ordere d By: Joseline Barrera on 09-11-2024 WBC (Bld) [#/Vol] Leukocytes [#/volume ] in Blood by Automated count 4.1-10.5 [facility] X-ray reportOrdered By: Narendra Mock on 09-11-2024 Study report [facility] XR chest 2V*on 09-11-2024 XR chest 2V* Normal [facility] Alanine aminotransferase [En zymatic activity/volume] in Serum or PlasmaOrdered By: Kaz Prescott on 07-31-2024 ALT [Catalytic activity/Vol] Alanine aminotransferase [Enzymatic activity/volume] in Serum or Plasma [facility] Albumin [Mass/volume] in Ser um or Plasma by Bromocresol green (BCG) dye binding methoOrdered By: Kaz Prescott on 07-31-2024 Albumin BCG dye [Mass/Vol] Albumin [Mass/volume] in Serum or Plasma by Bromocresol green (BCG) dye binding metho Low 3.5-5.7 [facility] Alkaline phosphatase [Enzyma tic activity/volume] in Serum or PlasmaOrdered By: Kaz Prescott on 07-31-2024 ALP [Catalytic activity/Vol] Alkaline phosphatase [Enzymatic activity/volume] in Serum or Plasma 34-104 [facility] Aspartate aminotransferase [ Enzymatic activity/volume] in Serum or PlasmaOrdered By: Kaz Prescott on 07-31-2024 AST [Catalytic activity/Vol] Aspartate aminotransferase [Enzymatic activity/volume] in Serum or Plasma 13-39 [facility] Basophils Auto (Bld) [#/Vol] Ordered By: Kaz Prescott on 07-31-2024 Basophils (Bld) [#/Vol] Automated basophil count 0.0-0.2 [facility] Basophils/100 WBC Auto (Bld) Ordered By: Kaz Prescott on 07-31-2024 Basophils/100 WBC (Bld) Automated basophil % . [facility] Bilirubin.total [Mass/volume ] in Serum or PlasmaOrdered By: Kaz Prescott on 07-31-2024 Bilirubin [Mass/Vol] Bilirubin.total [Mass/volume] in Serum or Plasma 0.3-1.0 [facility] Calcium [Mass/volume] in Ser um or PlasmaOrdered By: Kaz Prescott on 07-31-2024 Calcium [Mass/Vol] Calcium [Mass/volume ] in Serum or Plasma 8.6-10.3 [facility] Carbon dioxide, total [Moles /volume] in Serum or PlasmaOrdered By: Kaz Prescott on 07-31-2024 CO2 [Moles/Vol] Carbon dioxide, tota l [Moles/volume] in Serum or Plasma High 21.0-31.0 [facility] Chloride [Moles/volume] in S [place] or PlasmaOrdered By: Kaz Prescott on 07-31-2024 Chloride [Moles/Vol] Chloride [Moles/vol ume] in Serum or Plasma 98-107 [facility] Complete Blood Count Auto Di ffon 07-31-2024 Basophils (Bld) [#/Vol] 0.1 10*3/uL Normal 0.0-0.2 [facility] Comment on above: Result Comment: PERF ORMED BY:[place] [address] [address] [place], [place] [phone] MEDICAL DIRECTORMOHAMED M EL-FAKHARANY M.D. Performed By: #### C BC, MG, CMP ####[address] Basophils/100 WBC (Bld) 0.8 % Normal . [facility] Comment on above: Performed By: #### C BC, MG, CMP ####[address] Eosinophils (Bld) [#/Vol] 0.4 10*3/uL Normal 0.0-0.45 [facility] Comment on above: Performed By: #### C BC, MG, CMP ####[address] Eosinophils/100 WBC (Bld) 3.7 % Normal . [facility] Comment on above: Performed By: #### C BC, MG, CMP ####[address] Erythrocyte distribution width (RBC) [Ratio] 15.0 % High 12.0-14.8 [facility] Comment on above: Performed By: #### C BC, MG, CMP ####[address] Hematocrit (Bld) [Volume fraction] 38.6 % Low 38.8-50.0 [facility] Comment on above: Performed By: #### C BC, MG, CMP ####[address] Hemoglobin (Bld) [Mass/Vol] 13.0 g/dL Normal 13.0-17.0 [facility] Comment on above: Performed By: #### C BC, MG, CMP ####[address] Lymphocytes (Bld) [#/Vol] 2.1 10*3/uL Normal 1.00-4.8 [facility] Comment on above: Performed By: #### C BC, MG, CMP ####[address] Lymphocytes/100 WBC (Bld) 21.4 % Normal . [facility] Comment on above: Performed By: #### C VERÓNICA MG, CMP ####[address] MCH (RBC) [Entitic mass] 30.6 pg Normal 27.5-35.2 [facility] Comment on above: Performed By: #### C VERÓNIAC MG, CMP ####[address] MCV (RBC) [Entitic vol] 91.1 fL Normal 83.5-101 [facility] Comment on above: Performed By: #### C MG VERÓNICA, CMP ####[address] Mean Corpuscular HGB Conc 33.6 g/dL Normal 32.5-35.6 [facility] Comment on above: Performed By: #### C VERÓNICA MG, CMP ####[address] Monocytes (Bld) [#/Vol] 1.1 10*3/uL High 0.0-0.8 [facility] Comment on above: Performed By: #### C MG VERÓNICA, CMP ####[address] Monocytes/100 WBC (Bld) 10.8 % Normal . [facility] Comment on above: Performed By: #### C VERÓNICA MG, CMP ####[address] Neutrophils (Bld) [#/Vol] 6.2 10*3/uL Normal 1.8-7.7 [facility] Comment on above: Performed By: #### C VERÓNICA MG, CMP ####[address] Neutrophils/100 WBC (Bld) 63.3 % Normal . [facility] Comment on above: Performed By: #### C BC MG, CMP ####[address] NRBC% 0.3 /100{WBC} Normal 0-0.5 [facility] Comment on above: Performed By: #### C BC, MG, CMP ####[address] Platelet mean volume (Bld) [Entitic vol] 8.9 fL Normal 6.6-10.1 [facility] Comment on above: Performed By: #### C BC, MG, CMP ####[address] Platelets (Bld) [#/Vol] 227 10*3/uL Normal 150-450 [facility] Comment on above: Performed By: #### C BC, MG, CMP ####[address] RBC (Bld) [#/Vol] 4.24 10*6/uL Normal 3.90-5.60 [facility] Comment on above: Performed By: #### C BC, MG, CMP ####[address] WBC (Bld) [#/Vol] 9.8 10*3/uL Normal 4.1-10.5 [facility] Comment on above: Performed By: #### C BC, MG, CMP ####[address] Comprehensive Metabolic P[facility] 07-31-2024 Albumin [Mass/Vol] 3.1 g/dL Low 3.5-5.7 [facility] Comment on above: Performed By: #### C BC, MG, CMP ####[address] Albumin/Globulin [Mass ratio] 1.2 {ratio} Normal [facility] Comment on above: Performed By: #### C BC, MG, CMP ####[address] ALP [Catalytic activity/Vol] 49 U/L Normal 34-104 [facility] Comment on above: Performed By: #### C BC, MG, CMP ####[place] [id number] [place] [address] [facility] ALT [Catalytic activity/Vol] 18 U/L Normal 7-52 [facility] Comment on above: Performed By: #### C BC, MG, CMP ####[place] [id number] [place] [address] [facility] Anion gap [Moles/Vol] 10.4 mmol/L Normal 6.0-15.0 [facility] Comment on above: Performed By: #### C BC, MG, CMP ####[place] [id number] [facility] AST [Catalytic activity/Vol] 16 U/L Normal 13-39 [facility] Comment on above: Performed By: #### C BC, MG, CMP ####[place] [id number] [facility] Bilirubin [Mass/Vol] 0.8 mg/dL Normal 0.3-1.0 [facility] Comment on above: Performed By: #### C BC, MG, CMP ####[place] [id number] [facility] Calcium [Mass/Vol] 8.9 mg/dL Normal 8.6-10.3 [facility] Comment on above: Performed By: #### C BC, MG, CMP ####[place] [id number] [facility] Chloride [Moles/Vol] 102 mmol/L Normal 98-107 [facility] Comment on above: Performed By: #### C BC, MG, CMP ####[place] [id number] [facility] CO2 [Moles/Vol] 33.0 mmol/L High 21.0-31.0 [facility] Comment on above: Performed By: #### C BC, MG, CMP ####[place] [id number] [facility] Creatinine [Mass/Vol] 1.05 mg/dL Normal 0.70-1.30 [facility] Comment on above: Performed By: #### C BC, MG, CMP ####[address] Creatinine Clr Calc Pharmacy 75.84 Normal [facility] Comment on above: Performed By: #### C BC, MG, CMP ####[address] GFR/1.73 sq M.predicted MDRD (S/P/Bld) [Vol rate/Area] mL/min/{1.73_m2} Normal [facility] Comment on above: Performed By: #### C BC, MG, CMP ####[address] Globulin (S) [Mass/Vol] 2.5 g/dL Normal [facility] Comment on above: Performed By: #### C BC, MG, CMP ####[address] Glucose [Mass/Vol] 100 mg/dL Normal 70-100 [facility] Comment on above: Result Comment: [facility] Glucose Reference Range is dependent on time and content of last meal. Glucose of more than 200 mg/dL in a nonstressed, ambulatory subject supports the diagnosis of Diabetes Mellitus. ADA recommended reference range Performed By: #### C BC, MG, CMP ####[address] Potassium [Moles/Vol] 3.4 mmol/L Low 3.5-5.1 [facility] Comment on above: Performed By: #### C BC, MG, CMP ####[address] Protein [Mass/Vol] 5.6 g/dL Low 6.4-8.9 [facility] Comment on above: Performed By: #### C BC, MG, CMP ####[address] Sodium [Moles/Vol] 142 mmol/L Normal 136-145 [facility] Comment on above: Performed By: #### C BC, MG, CMP ####[facility] [id number] Urea nitrogen [Mass/Vol] 18 mg/dL Normal 7-25 [facility] Comment on above: Performed By: #### C BC, MG, CMP ####[facility] [id number] Creatinine [Mass/volume] in Serum or PlasmaOrdered By: Kaz Prescott on 07-31-2024 Creatinine [Mass/Vol] Creatinine [Mass/v olume] in Serum or Plasma 0.70-1.30 [facility] Eosinophils Auto (Bld) [#/Vo l]Ordered By: Kaz Prescott on 07-31-2024 Eosinophils (Bld) [#/Vol] Automated eosinophil count 0.0-0.45 [facility] Eosinophils/100 WBC Auto (Bl d)Ordered By: Kaz Prescott on 07-31-2024 Eosinophils/100 WBC (Bld) Automated eosinophil % . [facility] Erythrocyte distribution wid th Auto (RBC) [Ratio]Ordered By: Kaz Prescott on 07-31-2024 Erythrocyte distribution width (RBC) [Ratio] Erythrocyte distribution width [Ratio] by Automated count High 12.0-14.8 [facility] Globulin Calc (S) [Mass/Vol] Ordered By: Kaz Prescott on 07-31-2024 Globulin (S) [Mass/Vol] Serum globulin measurement by calculation (mass/volume) [facility] Glucose [Mass/volume] in Ser um or PlasmaOrdered By: Kaz Prescott on 07-31-2024 Glucose [Mass/Vol] Glucose [Mass/volume ] in Serum or Plasma 70-100 [facility] Hematocrit Auto (Bld) [Volum e fraction]Ordered By: Kaz Prescott on 07-31-2024 Hematocrit (Bld) [Volume fraction] Hematocrit [Volume Fraction] of Blood by Automated count Low 38.8-50.0 [facility] Hemoglobin [Mass/volume] in BloodOrdered By: Kaz Prescott on 07-31-2024 Hemoglobin (Bld) [Mass/Vol] Hemoglobin [Mass/volume] in Blood 13.0-17.0 [facility] Leukocytes [#/volume] correc blessing for nucleated erythrocytes in Blood by Automated counOrdered By: Kaz Prescott on 07-31-2024 WBC corrected for nucl RBC Auto (Bld) [#/Vol] Leukocytes [#/volume] corrected for nucleated erythrocytes in Blood by Automated coun 4.1-10.5 [facility] Lymphocytes Auto (Bld) [#/Vo l]Ordered By: Kaz Prescott on 07-31-2024 Lymphocytes (Bld) [#/Vol] Lymphocytes [#/volume] in Blood by Automated count 1.00-4.8 [facility] Lymphocytes/100 WBC Auto (Bl d)Ordered By: Kaz Prescott on 07-31-2024 Lymphocytes/100 WBC (Bld) Lymphocytes/100 leukocytes in Blood by Automated count . [facility] MCH Auto (RBC) [Entitic mass ]Ordered By: Kaz Prescott on 07-31-2024 MCH (RBC) [Entitic mass] MCH [Entitic mass] by Automated count 27.5-35.2 [facility] MCHC Auto (RBC) [Mass/Vol]Or dered By: Kaz Prescott on 07-31-2024 MCHC (RBC) [Mass/Vol] MCHC [Mass/volume] by Automated count 32.5-35.6 [facility] MCV Auto (RBC) [Entitic vol] Ordered By: Kaz Prescott on 07-31-2024 MCV (RBC) [Entitic vol] MCV [Entitic volume] by Automated count 83.5-101 [facility] Magnesiumon 07-31-2024 Magnesium [Mass/Vol] 1.9 mg/dL Normal 1.9-2.7 [facility] Comment on above: Result Comment: PERF ORMED BY:[facility] [place], [place] [phone] MEDICAL DIRECTORRHONDA MCLEAN M.D. Performed By: #### C BC, MG, CMP ####[facility] [place] [address] [place] Magnesium [Mass/volume] in S [place] or PlasmaOrdered By: Kaz Prescott on 07-31-2024 Magnesium [Mass/Vol] Magnesium [Mass/vol ume] in Serum or Plasma 1.9-2.7 [facility] Monocytes Auto (Bld) [#/Vol] Ordered By: Kaz Prescott on 07-31-2024 Monocytes (Bld) [#/Vol] Automated blood monocyte count High 0.0-0.8 [facility] Monocytes/100 WBC Auto (Bld) Ordered By: Kaz Prescott on 07-31-2024 Monocytes/100 WBC (Bld) Automated monocyte % . [facility] Neutrophils Auto (Bld) [#/Vo l]Ordered By: Kaz Prescott on 07-31-2024 Neutrophils (Bld) [#/Vol] Neutrophils [#/volume] in Blood by Automated count 1.8-7.7 [facility] Neutrophils/100 WBC Auto (Bl d)Ordered By: Kaz Prescott on 07-31-2024 Neutrophils/100 WBC (Bld) Automated neutrophil % . [facility] No Panel InformationOrdered By: Kaz Prescott on 07-31-2024 > 60.0 mL/Min [facility] 75.84 [facility] Nucleated erythrocytes [Pres ence] in Blood by Automated countOrdered By: Kaz Prescott on 07-31-2024 Nucleated RBC Auto Ql (Bld) Nucleated erythrocytes [Presence] in Blood by Automated count 0-0.5 [facility] Platelet mean volume Auto (B ld) [Entitic vol]Ordered By: Kaz Prescott on 07-31-2024 Platelet mean volume (Bld) [Entitic vol] Platelet mean volume [Entitic volume] in Blood by Automated count 6.6-10.1 [facility] Platelets Auto (Bld) [#/Vol] Ordered By: Kaz Prescott on 07-31-2024 Platelets (Bld) [#/Vol] Platelets [#/volume] in Blood by Automated count 150-450 [facility] Potassium [Moles/volume] in Serum or PlasmaOrdered By: Kaz Prescott on 07-31-2024 Potassium [Moles/Vol] Potassium [Moles/v olume] in Serum or Plasma Low 3.5-5.1 [facility] Protein [Mass/volume] in Ser um or PlasmaOrdered By: Kaz Prescott on 07-31-2024 Protein [Mass/Vol] Protein [Mass/volume ] in Serum or Plasma Low 6.4-8.9 [facility] RBC Auto (Bld) [#/Vol]Ordere d By: Kaz Prescott on 07-31-2024 RBC (Bld) [#/Vol] Erythrocytes [#/volu me] in Blood by Automated count 3.90-5.60 [facility] Serum or plasma albumin/glob ulin mass ratioOrdered By: Kaz Prescott on 07-31-2024 Albumin/Globulin [Mass ratio] Serum or plasma albumin/globulin mass ratio [facility] Serum or plasma anion gap de terminationOrdered By: Kaz Prescott on 07-31-2024 Anion gap [Moles/Vol] Serum or plasma an ion gap determination 6.0-15.0 [facility] Sodium [Moles/volume] in Ser um or PlasmaOrdered By: Kaz Prescott on 07-31-2024 Sodium [Moles/Vol] Sodium [Moles/volume ] in Serum or Plasma 136-145 [facility] US venous duplex LE BIon US venous duplex LE BI Normal [facility] Urea nitrogen [Mass/volume] in Serum or PlasmaOrdered By: Kaz Prescott on 07-31-2024 Urea nitrogen [Mass/Vol] Urea nitrogen [Mass/volume] in Serum or Plasma 7-25 [facility] WBC Auto (Bld) [#/Vol]Ordere d By: Kaz Prescott on 07-31-2024 WBC (Bld) [#/Vol] Leukocytes [#/volume ] in Blood by Automated count 4.1-10.5 [facility] Complete Blood Count Auto Di ffon 07-30-2024 Basophils (Bld) [#/Vol] 0.1 10*3/uL Normal 0.0-0.2 [facility] Comment on above: Result Comment: PERF ORMED BY:[facility] [place], [place] [phone] MEDICAL NELLIE MCLEAN M.D. Performed By: #### C BC, CMP ####[address] Basophils/100 WBC (Bld) 0.6 % Normal . [facility] Comment on above: Performed By: #### C BC, CMP ####[address] Eosinophils (Bld) [#/Vol] 0.1 10*3/uL Normal 0.0-0.45 [facility] Comment on above: Performed By: #### C BC, CMP ####[address] Eosinophils/100 WBC (Bld) 1.6 % Normal . [facility] Comment on above: Performed By: #### C BC, CMP ####[address] Erythrocyte distribution width (RBC) [Ratio] 15.4 % High 12.0-14.8 [facility] Comment on above: Performed By: #### C BC, CMP ####[address] Hematocrit (Bld) [Volume fraction] 38.6 % Low 38.8-50.0 [facility] Comment on above: Performed By: #### C BC, CMP ####[address] Hemoglobin (Bld) [Mass/Vol] 13.0 g/dL Normal 13.0-17.0 [facility] Comment on above: Performed By: #### C BC, CMP ####[address] Lymphocytes (Bld) [#/Vol] 2.3 10*3/uL Normal 1.00-4.8 [facility] Comment on above: Performed By: #### C BC, CMP ####[place] [id number] [facility] Lymphocytes/100 WBC (Bld) 25.0 % Normal . [facility] Comment on above: Performed By: #### C BC, CMP ####[address] MCH (RBC) [Entitic mass] 30.5 pg Normal 27.5-35.2 [facility] Comment on above: Performed By: #### C BC, CMP ####[address] MCV (RBC) [Entitic vol] 90.6 fL Normal 83.5-101 [facility] Comment on above: Performed By: #### C BC, CMP ####[address] Mean Corpuscular HGB Conc 33.7 g/dL Normal 32.5-35.6 [facility] Comment on above: Performed By: #### C BC, CMP ####[address] Monocytes (Bld) [#/Vol] 0.9 10*3/uL High 0.0-0.8 [facility] Comment on above: Performed By: #### C BC, CMP ####[address] Monocytes/100 WBC (Bld) 9.5 % Normal . [facility] Comment on above: Performed By: #### C BC, CMP ####[address] Neutrophils (Bld) [#/Vol] 5.8 10*3/uL Normal 1.8-7.7 [facility] Comment on above: Performed By: #### C BC, CMP ####[address] Neutrophils/100 WBC (Bld) 63.3 % Normal . [facility] Comment on above: Performed By: #### C BC, CMP ####[address] NRBC% 0.1 /100{WBC} Normal 0-0.5 [facility] Comment on above: Performed By: #### C BC, CMP ####[place] [id number] [facility] Platelet mean volume (Bld) [Entitic vol] 8.1 fL Normal 6.6-10.1 [facility] Comment on above: Performed By: #### C BC, CMP ####[place] [id number] [facility] Platelets (Bld) [#/Vol] 220 10*3/uL Normal 150-450 [facility] Comment on above: Performed By: #### C EVRÓNICA, CMP ####[address] RBC (Bld) [#/Vol] 4.26 10*6/uL Normal 3.90-5.60 [facility] Comment on above: Performed By: #### C VERÓNICA, CMP ####[place] [id number] [facility] WBC (Bld) [#/Vol] 9.2 10*3/uL Normal 4.1-10.5 [facility] Comment on above: Performed By: #### C VERÓNICA, CMP ####[address] Comprehensive Metabolic Pane radha 07-30-2024 Albumin [Mass/Vol] 3.2 g/dL Low 3.5-5.7 [facility] Comment on above: Performed By: #### C VERÓNICA, CMP ####[place] [id number] [facility] Albumin/Globulin [Mass ratio] 1.3 {ratio} Normal [facility] Comment on above: Performed By: #### C BC, CMP ####[place] [id number] [facility] ALP [Catalytic activity/Vol] 50 U/L Normal 34-104 [facility] Comment on above: Performed By: #### C BC, CMP ####[place] [id number] [facility] ALT [Catalytic activity/Vol] 19 U/L Normal 7-52 [facility] Comment on above: Performed By: #### C BC, CMP ####[place] [id number] [facility] Anion gap [Moles/Vol] 9.8 mmol/L Normal 6.0-15.0 [facility] Comment on above: Performed By: #### C BC, CMP ####[place] [id number] [facility] AST [Catalytic activity/Vol] 18 U/L Normal 13-39 [facility] Comment on above: Performed By: #### C BC, CMP ####[place] [id number] [facility] Bilirubin [Mass/Vol] 0.8 mg/dL Normal 0.3-1.0 [facility] Comment on above: Performed By: #### C BC, CMP ####[place] [id number] [facility] Calcium [Mass/Vol] 9.1 mg/dL Normal 8.6-10.3 [facility] Comment on above: Performed By: #### C BC, CMP ####[place] [id number] [facility] Chloride [Moles/Vol] 103 mmol/L Normal 98-107 [facility] Comment on above: Performed By: #### C BC, CMP ####[place] [id number] [facility] CO2 [Moles/Vol] 33.6 mmol/L High 21.0-31.0 [facility] Comment on above: Performed By: #### C BC, CMP ####[place] [id number] [facility] Creatinine [Mass/Vol] 1.00 mg/dL Normal 0.70-1.30 [facility] Comment on above: Performed By: #### C BC, CMP ####[address] [address] [facility] Creatinine Clr Calc Pharmacy 80.23 Normal [facility] Comment on above: Result Comment: PERF ORMED BY:[address], [place] [phone] MEDICAL DIRECTORRHONDA MCLEAN M.D. Performed By: #### C BC, CMP ####[address] [address] [facility] GFR/1.73 sq M.predicted MDRD (S/P/Bld) [Vol rate/Area] mL/min/{1.73_m2} Normal [facility] Comment on above: Performed By: #### C BC, CMP ####[address] [address] [facility] Globulin (S) [Mass/Vol] 2.5 g/dL Normal [facility] Comment on above: Performed By: #### C BC, CMP ####[place] [id number] [facility] Glucose [Mass/Vol] 99 mg/dL Normal 70-100 [facility] Comment on above: Result Comment: [facility] Glucose Reference Range is dependent on time and content of last meal. Glucose of more than 200 mg/dL in a nonstressed, ambulatory subject supports the diagnosis of Diabetes Mellitus. ADA recommended reference range Performed By: #### C BC, CMP ####[place] [id number] [facility] Potassium [Moles/Vol] 3.4 mmol/L Low 3.5-5.1 [facility] Comment on above: Performed By: #### C BC, CMP ####[place] [id number] [facility] Protein [Mass/Vol] 5.7 g/dL Low 6.4-8.9 [facility] Comment on above: Performed By: #### C BC, CMP ####[place] [id number] [facility] Sodium [Moles/Vol] 143 mmol/L Normal 136-145 [facility] Comment on above: Performed By: #### C BC, CMP ####[place] [id number] [facility] Urea nitrogen [Mass/Vol] 20 mg/dL Normal 7-25 [facility] Comment on above: Performed By: #### C BC, CMP ####[address] lumbar spine wo conon CT lumbar spine wo con Normal [facility] Complete Blood Count Auto Di ffon 07-29-2024 Basophils (Bld) [#/Vol] 0.0 10*3/uL Normal 0.0-0.2 [facility] Comment on above: Result Comment: PERF ORMED BY:[address] [place], [place] [phone] MEDICAL DIRECTORRHONDA MCLEAN M.D. Performed By: #### P HOS, CMP, CBC, MG ####[address] Basophils/100 WBC (Bld) 0.4 % Normal . [facility] Comment on above: Performed By: #### P HOS, CMP, CBC, MG ####[address] Eosinophils (Bld) [#/Vol] 0.1 10*3/uL Normal 0.0-0.45 [facility] Comment on above: Performed By: #### P HOS, CMP, CBC, MG ####[address] Eosinophils/100 WBC (Bld) 0.9 % Normal . [facility] Comment on above: Performed By: #### P HOS, CMP, CBC, MG ####[address] Erythrocyte distribution width (RBC) [Ratio] 15.2 % High 12.0-14.8 [facility] Comment on above: Performed By: #### P HOS, CMP, CBC, MG ####[address] Hematocrit (Bld) [Volume fraction] 39.0 % Normal 38.8-50.0 [facility] Comment on above: Performed By: #### P HOS, CMP, CBC, MG ####[address] Hemoglobin (Bld) [Mass/Vol] 13.2 g/dL Normal 13.0-17.0 [facility] Comment on above: Performed By: #### P HOS, CMP, CBC, MG ####[address] Lymphocytes (Bld) [#/Vol] 1.9 10*3/uL Normal 1.00-4.8 [facility] Comment on above: Performed By: #### P HOS, CMP, CBC, MG ####[address] Lymphocytes/100 WBC (Bld) 23.4 % Normal . [facility] Comment on above: Performed By: #### P HOS, CMP, CBC, MG ####[address] MCH (RBC) [Entitic mass] 30.5 pg Normal 27.5-35.2 [facility] Comment on above: Performed By: #### P HOS, CMP, CBC, MG ####[address] MCV (RBC) [Entitic vol] 90.5 fL Normal 83.5-101 [facility] Comment on above: Performed By: #### P HOS, CMP, CBC, MG ####[address] Mean Corpuscular HGB Conc 33.7 g/dL Normal 32.5-35.6 [facility] Comment on above: Performed By: #### P HOS, CMP, CBC, MG ####[address] Monocytes (Bld) [#/Vol] 1.1 10*3/uL High 0.0-0.8 [facility] Comment on above: Performed By: #### P HOS, CMP, CBC, MG ####[place] [address] Monocytes/100 WBC (Bld) 13.3 % Normal . [facility] Comment on above: Performed By: #### P HOS, CMP, CBC, MG ####[address] Neutrophils (Bld) [#/Vol] 5.2 10*3/uL Normal 1.8-7.7 [facility] Comment on above: Performed By: #### P HOS, CMP, CBC, MG ####[address] Neutrophils/100 WBC (Bld) 62.0 % Normal . [facility] Comment on above: Performed By: #### P HOS, CMP, CBC, MG ####[address] NRBC% 0.1 /100{WBC} Normal 0-0.5 [facility] Comment on above: Performed By: #### P HOS, CMP, CBC, MG ####[address] Platelet mean volume (Bld) [Entitic vol] 8.4 fL Normal 6.6-10.1 [facility] Comment on above: Performed By: #### P HOS, CMP, CBC, MG ####[address] Platelets (Bld) [#/Vol] 217 10*3/uL Normal 150-450 [facility] Comment on above: Performed By: #### P HOS, CMP, CBC, MG ####[address] RBC (Bld) [#/Vol] 4.31 10*6/uL Normal 3.90-5.60 [facility] Comment on above: Performed By: #### P HOS, CMP, CBC, MG ####[address] WBC (Bld) [#/Vol] 8.3 10*3/uL Normal 4.1-10.5 [facility] Comment on above: Performed By: #### P HOS, CMP, CBC, MG ####[address] Comprehensive Metabolic Pane radha 07-29-2024 Albumin [Mass/Vol] 3.2 g/dL Low 3.5-5.7 [facility] Comment on above: Performed By: #### P HOS, CMP, CBC, MG ####[address] Albumin/Globulin [Mass ratio] 1.2 {ratio} Normal [facility] Comment on above: Performed By: #### P HOS, CMP, CBC, MG ####[address] ALP [Catalytic activity/Vol] 49 U/L Normal 34-104 [facility] Comment on above: Performed By: #### P HOS, CMP, CBC, MG ####[address] ALT [Catalytic activity/Vol] 18 U/L Normal 7-52 [facility] Comment on above: Performed By: #### P HOS, CMP, CBC, MG ####[address] Anion gap [Moles/Vol] 11.3 mmol/L Normal 6.0-15.[address] [facility] Comment on above: Performed By: #### P HOS, CMP, CBC, MG ####[address] AST [Catalytic activity/Vol] 19 U/L Normal 13-39 [facility] Comment on above: Performed By: #### P HOS, CMP, CBC, MG ####[address] Bilirubin [Mass/Vol] 0.8 mg/dL Normal 0.3-1.0 [facility] Comment on above: Performed By: #### P HOS, CMP, CBC, MG ####[address] Calcium [Mass/Vol] 9.1 mg/dL Normal 8.6-10.3 [facility] Comment on above: Performed By: #### P HOS, CMP, CBC, MG ####[address] Chloride [Moles/Vol] 102 mmol/L Normal 98-107 [facility] Comment on above: Performed By: #### P HOS, CMP, CBC, MG ####[address] CO2 [Moles/Vol] 34.0 mmol/L High 21.0-31.0 [facility] Comment on above: Performed By: #### P HOS, CMP, CBC, MG ####[address] Creatinine [Mass/Vol] 1.09 mg/dL Normal 0.70-1.30 [facility] Comment on above: Performed By: #### P HOS, CMP, CBC, MG ####[address] Creatinine Clr Calc Pharmacy 73.15 Normal [facility] Comment on above: Performed By: #### P HOS, CMP, CBC, MG ####[address] GFR/1.73 sq M.predicted MDRD (S/P/Bld) [Vol rate/Area] mL/min/{1.73_m2} Normal [facility] Comment on above: Performed By: #### P HOS, CMP, CBC, MG ####[address] Globulin (S) [Mass/Vol] 2.6 g/dL Normal [facility] Comment on above: Performed By: #### P HOS, CMP, CBC, MG ####[address] Glucose [Mass/Vol] 98 mg/dL Normal 70-100 [facility] Comment on above: Result Comment: [place] Glucose Reference Range is dependent on time and content of last meal. Glucose of more than 200 mg/dL in a nonstressed, ambulatory subject supports the diagnosis of Diabetes Mellitus. ADA recommended reference range Performed By: #### P HOS, CMP, CBC, MG ####[address] Potassium [Moles/Vol] 3.3 mmol/L Low 3.5-5.1 [facility] Comment on above: Performed By: #### P HOS, CMP, CBC, MG ####[place] [id number] [facility] Protein [Mass/Vol] 5.8 g/dL Low 6.4-8.9 [facility] Comment on above: Performed By: #### P HOS, CMP, CBC, MG ####[address] Sodium [Moles/Vol] 144 mmol/L Normal 136-145 [facility] Comment on above: Performed By: #### P HOS, CMP, CBC, MG ####[address] Urea nitrogen [Mass/Vol] 23 mg/dL Normal 7-25 [facility] Comment on above: Performed By: #### P HOS, CMP, CBC, MG ####[place] [id number] [facility] Magnesiumon 07-29-2024 Magnesium [Mass/Vol] 1.8 mg/dL Low 1.9-2.7 [facility] Comment on above: Result Comment: PERF ORMED BY:[address] [place], [place] [phone] MEDICAL NELLIE MCLEAN M.D. Performed By: #### P HOS, CMP, CBC, MG ####[place] [id number] [facility] Phosphate [Mass/volume] in [place] or PlasmaOrdered By: Kamaljit Melo on 07-29-2024 Phosphate [Mass/Vol] Phosphate [Mass/vol ume] in Serum or Plasma 2.5-4.5 [facility] Phosphoruson 07-29-2024 Phosphate [Mass/Vol] 3.4 mg/dL Normal 2.5-4.5 [facility] Comment on above: Performed By: #### P HOS, CMP, CBC, MG ####[place] [id number] [place] [address] [facility] Appearance of UrineOrdered B y: Juli Thomas on 07-28-2024 Appearance (U) Urine appearance Clear [facility] B-Type Natriuretic Peptideon 07-28-2024 Natriuretic peptide B (Bld) [Mass/Vol] 142.0 pg/mL High 5-100 [facility] Comment on above: Result Comment: PERF ORMED BY:[place] [address] [address] [place], [place] [phone] MEDICAL DIRECTORRHONDA MCLEAN M.D. Performed By: #### P HOS, MG, BNP, HS TROP, CMP, PTT, PT, CBC ####[place] [id number] [place] [address] [facility] Bacteria [Presence] in Urine by AutomatedOrdered By: Juli Thomas on 07-28-2024 Bacteria Auto Ql (U) Bacteria [Presence] in Urine by Automated None Seen [facility] Bilirubin Test strip Ql (U)O rdered By: Juli Thomas on 07-28-2024 Bilirubin Ql (U) Bilirubin.total [Pre sence] in Urine by Test strip Negative [facility] CT cervical spine wo conon 1 09-28-2023 CT cervical spine wo con Normal [facility] Color Auto (U)Ordered By: Goyo Thomas on 07-28-2024 Color (U) Color of Urine by Auto Yellow Fi [facility] Complete Blood Count Auto Di ffon 07-28-2024 Basophils (Bld) [#/Vol] 0.1 10*3/uL Normal 0.0-0.2 [facility] Comment on above: Result Comment: PERF ORMED BY:[place] [address] [address] [place], [place] [phone] MEDICAL DIRECTORRHONDA HannonD. Performed By: #### P HOS, MG, BNP, HS TROP, CMP, PTT, PT, CBC ####[address] Basophils/100 WBC (Bld) 0.9 % Normal . [facility] Comment on above: Performed By: #### P HOS, MG, BNP, HS TROP, CMP, PTT, PT, CBC ####[address] Eosinophils (Bld) [#/Vol] 0.0 10*3/uL Normal 0.0-0.45 [facility] Comment on above: Performed By: #### P HOS, MG, BNP, HS TROP, CMP, PTT, PT, CBC ####[address] Eosinophils/100 WBC (Bld) 0.2 % Normal . [facility] Comment on above: Performed By: #### P HOS, MG, BNP, HS TROP, CMP, PTT, PT, CBC ####[address] Erythrocyte distribution width (RBC) [Ratio] 15.1 % High 12.0-14.8 [facility] Comment on above: Performed By: #### P HOS, MG, BNP, HS TROP, CMP, PTT, PT, CBC ####[address] Hematocrit (Bld) [Volume fraction] 38.9 % Normal 38.8-50.0 [facility] Comment on above: Performed By: #### P HOS, MG, BNP, HS TROP, CMP, PTT, PT, CBC ####[address] Hemoglobin (Bld) [Mass/Vol] 13.1 g/dL Normal 13.0-17.0 [facility] Comment on above: Performed By: #### P HOS, MG, BNP, HS TROP, CMP, PTT, PT, CBC ####[address] Lymphocytes (Bld) [#/Vol] 0.7 10*3/uL Low 1.00-4.8 [facility] Comment on above: Performed By: #### P HOS, MG, BNP, HS TROP, CMP, PTT, PT, CBC ####[address] Lymphocytes/100 WBC (Bld) 5.7 % Normal . [facility] Comment on above: Performed By: #### P HOS, MG, BNP, HS TROP, CMP, PTT, PT, CBC ####[address] MCH (RBC) [Entitic mass] 30.4 pg Normal 27.5-35.2 [facility] Comment on above: Performed By: #### P HOS, MG, BNP, HS TROP, CMP, PTT, PT, CBC ####[address] MCV (RBC) [Entitic vol] 90.3 fL Normal 83.5-101 [facility] Comment on above: Performed By: #### P HOS, MG, BNP, HS TROP, CMP, PTT, PT, CBC ####[address] Mean Corpuscular HGB Conc 33.7 g/dL Normal 32.5-35.6 [facility] Comment on above: Performed By: #### P HOS, MG, BNP, HS TROP, CMP, PTT, PT, CBC ####[address] Monocytes (Bld) [#/Vol] 1.1 10*3/uL High 0.0-0.8 [facility] Comment on above: Performed By: #### P HOS, MG, BNP, HS TROP, CMP, PTT, PT, CBC ####[address] Monocytes/100 WBC (Bld) 20.19 % High 0.00-20.00 [facility] Comment on above: Result Comment: For adults in ED, MDW > 20.0 may be associated with a higher risk of sepsis during the first 12 hrs of hospital admission Performed By: #### P HOS, MG, BNP, HS TROP, CMP, PTT, PT, CBC ####[address] Monocytes/100 WBC (Bld) 8.7 % Normal . [facility] Comment on above: Performed By: #### P HOS, MG, BNP, HS TROP, CMP, PTT, PT, CBC ####[address] Neutrophils (Bld) [#/Vol] 10.6 10*3/uL High 1.8-7.7 [facility] Comment on above: Performed By: #### P HOS, MG, BNP, HS TROP, CMP, PTT, PT, CBC ####[address] Neutrophils/100 WBC (Bld) 84.5 % Normal . [facility] Comment on above: Performed By: #### P HOS, MG, BNP, HS TROP, CMP, PTT, PT, CBC ####[address] NRBC% 0.2 /100{WBC} Normal 0-0.5 [facility] Comment on above: Performed By: #### P HOS, MG, BNP, HS TROP, CMP, PTT, PT, CBC ####[address] Platelet mean volume (Bld) [Entitic vol] 8.6 fL Normal 6.6-10.1 [facility] Comment on above: Performed By: #### P HOS, MG, BNP, HS TROP, CMP, PTT, PT, CBC ####[address] Platelets (Bld) [#/Vol] 234 10*3/uL Normal 150-450 [facility] Comment on above: Performed By: #### P HOS, MG, BNP, HS TROP, CMP, PTT, PT, CBC ####[address] RBC (Bld) [#/Vol] 4.31 10*6/uL Normal 3.90-5.60 [facility] Comment on above: Performed By: #### P HOS, MG, BNP, HS TROP, CMP, PTT, PT, CBC ####[address] WBC (Bld) [#/Vol] 12.5 10*3/uL High 4.1-10.5 [facility] Comment on above: Performed By: #### P HOS, MG, BNP, HS TROP, CMP, PTT, PT, CBC ####[address] Comprehensive Metabolic Pane radha 07-28-2024 Albumin [Mass/Vol] 3.4 g/dL Low 3.5-5.7 [facility] Comment on above: Performed By: #### P HOS, MG, BNP, HS TROP, CMP, PTT, PT, CBC ####[address] Albumin/Globulin [Mass ratio] 1.2 {ratio} Normal [facility] Comment on above: Performed By: #### P HOS, MG, BNP, HS TROP, CMP, PTT, PT, CBC ####[address] ALP [Catalytic activity/Vol] 57 U/L Normal 34-104 [facility] Comment on above: Performed By: #### P HOS, MG, BNP, HS TROP, CMP, PTT, PT, CBC ####[address] ALT [Catalytic activity/Vol] 22 U/L Normal 7-52 [facility] Comment on above: Performed By: #### P HOS, MG, BNP, HS TROP, CMP, PTT, PT, CBC ####[address] Anion gap [Moles/Vol] 13.5 mmol/L Normal 6.0-15.0 [facility] Comment on above: Performed By: #### P HOS, MG, BNP, HS TROP, CMP, PTT, PT, CBC ####[address] AST [Catalytic activity/Vol] 20 U/L Normal 13-39 [facility] Comment on above: Performed By: #### P HOS, MG, BNP, HS TROP, CMP, PTT, PT, CBC ####[address] Bilirubin [Mass/Vol] 0.7 mg/dL Normal 0.3-1.0 [facility] Comment on above: Performed By: #### P HOS, MG, BNP, HS TROP, CMP, PTT, PT, CBC ####[address] Calcium [Mass/Vol] 9.1 mg/dL Normal 8.6-10.3 [facility] Comment on above: Performed By: #### P HOS, MG, BNP, HS TROP, CMP, PTT, PT, CBC ####[address] Chloride [Moles/Vol] 100 mmol/L Normal 98-107 [facility] Comment on above: Performed By: #### P HOS, MG, BNP, HS TROP, CMP, PTT, PT, CBC ####[address] CO2 [Moles/Vol] 29.9 mmol/L Normal 21.0-31.0 [facility] Comment on above: Performed By: #### P HOS, MG, BNP, HS TROP, CMP, PTT, PT, CBC ####[address] Creatinine [Mass/Vol] 1.20 mg/dL Normal 0.70-1.30 [facility] Comment on above: Performed By: #### P HOS, MG, BNP, HS TROP, CMP, PTT, PT, CBC ####[address] Creatinine Clr Calc Pharmacy 67.69 Normal [facility] Comment on above: Performed By: #### P HOS, MG, BNP, HS TROP, CMP, PTT, PT, CBC ####[address] GFR/1.73 sq M.predicted MDRD (S/P/Bld) [Vol rate/Area] mL/min/{1.73_m2} Normal [facility] Comment on above: Performed By: #### P HOS, MG, BNP, HS TROP, CMP, PTT, PT, CBC ####[address] Globulin (S) [Mass/Vol] 2.8 g/dL Normal [facility] Comment on above: Performed By: #### P HOS, MG, BNP, HS TROP, CMP, PTT, PT, CBC ####[address] Glucose [Mass/Vol] 151 mg/dL High 70-100 [facility] Comment on above: Result Comment: [facility] Glucose Reference Range is dependent on time and content of last meal. Glucose of more than 200 mg/dL in a nonstressed, ambulatory subject supports the diagnosis of Diabetes Mellitus. ADA recommended reference range Performed By: #### P HOS, MG, BNP, HS TROP, CMP, PTT, PT, CBC ####[address] Potassium [Moles/Vol] 3.4 mmol/L Low 3.5-5.1 [facility] Comment on above: Performed By: #### P HOS, MG, BNP, HS TROP, CMP, PTT, PT, CBC ####[address] Protein [Mass/Vol] 6.2 g/dL Low 6.4-8.9 [facility] Comment on above: Performed By: #### P HOS, MG, BNP, HS TROP, CMP, PTT, PT, CBC ####[address] Sodium [Moles/Vol] 140 mmol/L Normal 136-145 [facility] Comment on above: Performed By: #### P HOS, MG, BNP, HS TROP, CMP, PTT, PT, CBC ####[address] [address] [facility] Urea nitrogen [Mass/Vol] 28 mg/dL High 7-25 [facility] Comment on above: Performed By: #### P HOS, MG, BNP, HS TROP, CMP, PTT, PT, CBC ####[address] [address] [facility] Dipstick and Microscopicon 1 09-28-2023 Appearance (U) Clear Normal Clear [facility] Comment on above: Order Comment: Name Collection Type:: Clean-Voided Midstream Performed By: #### A DDONUAPLUS ####[place] [id number] [facility] Bacteria,Urine None Seen Normal None Seen [facility] Comment on above: Order Comment: Name Collection Type:: Clean-Voided Midstream Performed By: #### A DDONUAPLUS ####[place] [id number] [facility] Bilirubin,Urine Negative Normal Negative [facility] Comment on above: Order Comment: Name Collection Type:: Clean-Voided Midstream Performed By: #### A DDONUAPLUS ####[place] [id number] [facility] Color (U) Colorless Normal Yellow [facility] Comment on above: Order Comment: Name Collection Type:: Clean-Voided Midstream Performed By: #### A DDONUAPLUS ####[address] [address] [facility] Glucose Ql (U) Normal Normal Normal [facility] Comment on above: Order Comment: Name Collection Type:: Clean-Voided Midstream Performed By: #### A DDONUAPLUS ####[address] [address] [facility] Hyaline Casts,Urine None Normal 0-8 [facility] Comment on above: Order Comment: Name Collection Type:: Clean-Voided Midstream Result Comment: PERF ORMED BY:[address], [place] [phone] MEDICAL DIRECTORRHONDA MCLEAN M.D. Performed By: #### A DDONUAPLUS ####[address] [address] [facility] Ketones Ql (U) Negative Normal Negative [facility] Comment on above: Order Comment: Name Collection Type:: Clean-Voided Midstream Performed By: #### A DDONUAPLUS ####[address] [address] [facility] Leukocyte esterase Test strip Ql (U) Negative Normal Negative [facility] Comment on above: Order Comment: Name Collection Type:: Clean-Voided Midstream Performed By: #### A DDONUAPLUS ####[address] [address] [facility] Nitrite,Urine Negative Normal Negative [facility] Comment on above: Order Comment: Name Collection Type:: Clean-Voided Midstream Performed By: #### A DDONUAPLUS ####[address] [address] [facility] Occult Blood,Urine Trace High Negative [facility] Comment on above: Order Comment: Name Collection Type:: Clean-Voided Midstream Result Comment: PERF ORMED BY:[address] [place], [place] [phone] MEDICAL DIRECTORRHONDA MCLEAN M.D. Performed By: #### A DDONUAPLUS ####[address] [address] [place] pH (U) 6.5 [pH] Normal 5.0-9.0 [facility] Comment on above: Order Comment: Name Collection Type:: Clean-Voided Midstream Performed By: #### A DDONUAPLUS ####[address] [address] [place] Protein,Urine Negative Normal Negative [facility] Comment on above: Order Comment: Name Collection Type:: Clean-Voided Midstream Performed By: #### A DDONUAPLUS ####[place] [id number] RBC,Urine 1 [HPF] Normal 0-4 [facility] Comment on above: Order Comment: Name Collection Type:: Clean-Voided Midstream Performed By: #### A DDONUAPLUS ####[place] [id number] [facility] Specificy [place],Urine 1.006 Normal 1.001-1.03 0 [facility] Comment on above: Order Comment: Name Collection Type:: Clean-Voided Midstream Performed By: #### A DDONUAPLUS ####[address] Urobilinogen,Urine Normal Normal Normal [facility] Comment on above: Order Comment: Name Collection Type:: Clean-Voided Midstream Performed By: #### A DDONUAPLUS ####[address] WBC,Urine 1 [HPF] Normal 0-4 [facility] Comment on above: Order Comment: Name Collection Type:: Clean-Voided Midstream Performed By: #### A DDONUAPLUS ####[address] ECG 12 lead ECGon 07-28-2024 ECG 12 lead ECG Normal [facility] Epithelial cells.squamous [# /area] in Urine sediment by Automated countOrdered By: Juli Thomas on 07-28-2024 Epithelial cells.squamous Auto (Urine sed) [#/Area] Epithelial cells.squamous [#/area] in Urine sediment by Automated count [facility] Erythrocytes [#/area] in Uri ne sediment by Automated countOrdered By: Juli Thomas on 07-28-2024 RBC Auto (Urine sed) [#/Area] Erythrocytes [#/area] in Urine sediment by Automated count 0-4 [facility] Glucose Glucometer (BldC) [M ass/Vol]Ordered By: Juli Thomas on 07-28-2024 Glucose [Mass/Vol] Capillary blood gluc ose measurement by glucometer (mass/volume) [facility] Glucose Poct Glucometerson 1 09-28-2023 Glucose [Mass/Vol] 172 mg/dL Normal [facility] Comment on above: Result Comment: [place] Glucose Reference Range is dependent on time and content of last meal. Glucose of more than 200 mg/dL in a nonstressed, ambulatory subject supports the diagnosis of Diabetes Mellitus.PERFORMED BY:[facility]enaRaulELV[place]RO[place], [place] [phone] MEDICAL DIRECTORRHONDA MCLEAN M.D. Performed By: #### G LULS ####Point of Care testing, Glucose [Mass/volume] in Uri ne by Test stripOrdered By: Juli Thomas on 07-28-2024 Glucose Test strip (U) [Mass/Vol] Glucose [Mass/volume] in Urine by Test strip Normal [facility] Hemoglobin Test strip Ql (U) Ordered By: Juli Thomas on 07-28-2024 Hemoglobin Ql (U) Hemoglobin [Presence ] in Urine by Test strip High Negative [facility] Hyaline casts [#/area] in Ur ine sediment by Automated countOrdered By: Juli Thomas on 07-28-2024 Hyaline casts Auto (Urine sed) [#/Area] Hyaline casts [#/area] in Urine sediment by Automated count 0-8 [facility] INR in Platelet poor plasma by Coagulation assayOrdered By: Juli Thomas on 07-28-2024 INR Coag (PPP) [Relative time] INR in Platelet poor plasma by Coagulation assay [facility] Ketones Test strip Ql (U)Ord ered By: Juli Thomas on 07-28-2024 Ketones Ql (U) Ketones [Presence] i n Urine by Test strip Negative [facility] Leukocyte esterase [Presence ] in Urine by Test stripOrdered By: Juli Thomas on 07-28-2024 Leukocyte esterase Test strip Ql (U) Leukocyte esterase [Presence] in Urine by Test strip Negative [facility] Leukocytes [#/area] in Urine sediment by Automated countOrdered By: Juli Thomas on 07-28-2024 WBC Auto (Urine sed) [#/Area] Leukocytes [#/area] in Urine sediment by Automated count 0-4 [facility] Magnesiumon 07-28-2024 Magnesium [Mass/Vol] 1.5 mg/dL Low 1.9-2.7 [facility] Comment on above: Result Comment: PERF ORMED BY:[place] [address] [address] [place], [place] [phone] MEDICAL DIRECTORRHONDA MCLEAN M.D. Performed By: #### P HOS, MG, BNP, HS TROP, CMP, PTT, PT, CBC ####[address] [address] [facility] Monocyte distribution width [Entitic volume] in Blood by AutomatedOrdered By: Juli Thomas on 07-28-2024 Monocyte distribution width Auto (Bld) [Entitic vol] Monocyte distribution width [Entitic volume] in Blood by Automated High 0.00-20.00 [facility] Natriuretic peptide B [Mass/ Vol]Ordered By: Juli Thomas on 07-28-2024 Natriuretic peptide B (Bld) [Mass/Vol] BNP ser/plas High 5-100 [facility] Nitrite Test strip Ql (U)Ord ered By: Juli Thomas on 07-28-2024 Nitrite Ql (U) Nitrite [Presence] i n Urine by Test strip Negative [facility] Partial Thromboplastin Timeo n 07-28-2024 aPTT Coag (Bld) [Time] 26.3 s Normal 25.1-36.5 [facility] Comment on above: Result Comment: A he matocrit value greater than 55% may lead to inaccurate results in coagulation testing. Patients having hematocrit values >55% require a special collection tube for coagulation studies. Please contact the laboratory at [phone] for redraw instructions.PERFORMED BY:[place] [address] [address] [place], [place] [phone] JIL DIRECTORRHONDA MCLEAN M.D. Performed By: #### P HOS, MG, BNP, HS TROP, CMP, PTT, PT, CBC ####[address] [address] [facility] Phosphoruson 07-28-2024 Phosphate [Mass/Vol] 2.8 mg/dL Normal 2.5-4.5 [facility] Comment on above: Performed By: #### P HOS, MG, BNP, HS TROP, CMP, PTT, PT, CBC ####[place] [id number] [place] [id number] [facility] Protein Test strip (U) [Mass /Vol]Ordered By: Juli Thomas on 07-28-2024 Protein (U) [Mass/Vol] Protein [Mass/vol ume] in Urine by Test strip Negative [facility] Prothrombin Time INRon 07-28 INR Coag (PPP) [Relative time] 1.4 {INR} Normal [facility] Comment on above: Result Comment: [...] BNP, HS TROP, CMP, PTT, PT, CBC ####[place] [id number] [place] [id number] [facility] PT Coag (PPP) [Time] 16.0 s High 9.0-12.9 [facility] Comment on above: Result Comment: A he matocrit value greater than 55% may lead to inaccurate results in coagulation testing. Patients having hematocrit values >55% require a special collection tube for coagulation studies. Please contact the laboratory at [phone] for redraw instructions. Performed By: #### P HOS, MG, BNP, HS TROP, CMP, PTT, PT, CBC ####[place] [id number] [place] [id number] [facility] Prothrombin time (PT)Ordered By: Juli Thomas on 07-28-2024 PT Coag (PPP) [Time] Prothrombin time (PT) High 9.0- 12.9 [facility] Specific gravity Test strip (U) [Rel density]Ordered By: Juli Thomas on 07-28-2024 Specific gravity (U) [Rel density] Specific gravity of Urine by Test strip 1.001-1.03 0 [facility] Troponin I High Sensitivityo n 07-28-2024 Troponin I High Sensitivity 11.2 pg/mL Normal 0.0-20.0 [facility] Comment on above: Result Comment: PERF ORMED BY:[address] [place], [place] [phone] MEDICAL DIRECTORRHONDA ESCOBARPOP Gutiérrez Performed By: #### H S TROP ####[address] [address] [facility] Troponin I High Sensitivity 11.1 pg/mL Normal 0.0-20.0 [facility] Comment on above: Result Comment: PERF ORMED BY:[address] [place], [place] [phone] MEDICAL DIRECTORRHONDA MENJIVARPOP Gutiérrez Performed By: #### P HOS, MG, BNP, HS TROP, CMP, PTT, PT, CBC ####[address] [address] [facility] Troponin I.cardiac [Mass/vol ume] in Serum or Plasma by Detection limit <= 0.01 ng/Ordered By: Juli Thomas on 07-28-2024 Troponin I.cardiac DL <= 0.01 ng/mL [Mass/Vol] Troponin I.cardiac [Mass/volume] in Serum or Plasma by Detection limit <= 0.01 ng/ 0.0-20.0 [facility] Urobilinogen Test strip (U) [Mass/Vol]Ordered By: Juli Thomas on 07-28-2024 Urobilinogen (U) [Mass/Vol] Urobilinogen [Mass/volume] in Urine by Test strip Normal [facility] XR chest 1V portableon 07-28 XR chest 1V portable Normal [facility] aPTT in Platelet poor plasma by Coagulation assayOrdered By: Juli Thomas on 07-28-2024 aPTT Coag (PPP) [Time] Activated partial thromboplastin time (aPTT) in platelet poor plasma by coagulation a 25.1-36.5 [facility] pH Test strip (U)Ordered By: Juli Thomas on 07-28-2024 pH (U) pH of Urine by Test strip 5.0-9.0 [facility] BASIC METABOLIC PANELon Calcium [Mass/Vol] 8.8 mg/dL Normal 8.6-10.3 [facility] Comment on above: Order Comment: FASTI NG:YES FASTING: YES Performed By: #### 1 0165 #### [facility] [address], [address] [place] [address] Housekeeping Lead: Daniele Carlson MD Chloride [Moles/Vol] 103 mmol/L Normal 98-110 [facility] Comment on above: Order Comment: FASTI NG:YES FASTING: YES Performed By: #### 1 0165 #### [facility] [place] [address] Housekeeping Lead: Danilee Carslon MD CO2 [Moles/Vol] 30 mmol/L Normal 20-32 [facility] Comment on above: Order Comment: FASTI NG:YES FASTING: YES Performed By: #### 1 0165 #### [facility] [place] [address] Housekeeping Lead: Daniele Carlson MD Creatinine [Mass/Vol] 1.18 mg/dL Normal 0.70-1.[address] [facility] [address] [facility] Comment on above: Order Comment: FASTI NG:YES FASTING: YES Performed By: #### 1 0165 #### [facility] [place] [address] Housekeeping Lead: Daniele Carlson MD GFR/1.73 sq M.predicted among non-blacks MDRD (S/P/Bld) [Vol rate/Area] 62 mL/min/{1.73_m2} Normal > OR = 60 [facility] Comment on above: Order Comment: FASTI NG:YES FASTING: YES Performed By: #### 1 0165 #### [facility] [address] [place] [address] Housekeeping Lead: Daniele Carlson MD Glucose [Mass/Vol] 99 mg/dL Normal 65-99 [facility] Comment on above: Order Comment: FASTI NG:YES FASTING: YES Result Comment: Fasting reference interval Performed By: #### 1 0165 #### [facility] [address], [address] [place] [address] Housekeeping Lead: Daniele Carlson MD Potassium [Moles/Vol] 3.3 mmol/L Low 3.5-5.[address] [facility] Comment on above: Order Comment: FASTI NG:YES FASTING: YES Performed By: #### 1 0165 #### [facility] [place] [address] Housekeeping Lead: Daniele Carlson MD Sodium [Moles/Vol] 143 mmol/L Normal 135-146 [facility] Comment on above: Order Comment: FASTI NG:YES FASTING: YES Performed By: #### 1 0165 #### [facility] [address], [address] [place] [address] Housekeeping Lead: Daniele Cralson MD Urea nitrogen [Mass/Vol] 26 mg/dL High 7-25 [facility] Comment on above: Order Comment: FASTI NG:YES FASTING: YES Performed By: #### 1 0165 #### [facility] [place] [address] Housekeeping Lead: Daniele Carlson MD Urea nitrogen/Creatinine [Mass ratio] 22 mg/mg Normal 6-22 [facility] Comment on above: Order Comment: FASTI NG:YES FASTING: YES Performed By: #### 1 0165 #### [facility] [place] [address] Housekeeping Lead: Daniele Carlson MD Basic Metabolic Panelon 11-2 Anion gap [Moles/Vol] 9.9 mmol/L Normal 6.0-15.0 [facility] Comment on above: Performed By: #### B MP, MG, CBC ####[address] Calcium [Mass/Vol] 8.8 mg/dL Normal 8.6-10.3 [facility] Comment on above: Performed By: #### B MP, MG, CBC ####[address] Chloride [Moles/Vol] 109 mmol/L High 98-107 [facility] Comment on above: Performed By: #### B MP, MG, CBC ####[address] CO2 [Moles/Vol] 27.4 mmol/L Normal 21.0-31.0 [facility] Comment on above: Performed By: #### B MP, MG, CBC ####[address] Creatinine [Mass/Vol] 1.08 mg/dL Normal 0.70-1.30 [facility] Comment on above: Performed By: #### B MP, MG, CBC ####[place] [address] [place] Creatinine Clr Calc Pharmacy 75.22 Normal [facility] Comment on above: Performed By: #### B MP, MG, CBC ####[place] [address] [place] GFR/1.73 sq M.predicted MDRD (S/P/Bld) [Vol rate/Area] mL/min/{1.73_m2} Normal [facility] Comment on above: Performed By: #### B MP, MG, CBC ####[address] Glucose [Mass/Vol] 93 mg/dL Normal 70-100 [facility] Comment on above: Result Comment: [place] Glucose Reference Range is dependent on time and content of last meal. Glucose of more than 200 mg/dL in a nonstressed, ambulatory subject supports the diagnosis of Diabetes Mellitus. ADA recommended reference range Performed By: #### B MP, MG, CBC ####[place] [address] [place] Potassium [Moles/Vol] 3.3 mmol/L Low 3.5-5.1 [facility] Comment on above: Performed By: #### B MP, MG, CBC ####[facility] Sodium [Moles/Vol] 143 mmol/L Significant change down 136-145 [facility] Comment on above: Performed By: #### B MP, MG, CBC ####[facility] [address] Urea nitrogen [Mass/Vol] 21 mg/dL Normal 7-25 [facility] Comment on above: Performed By: #### B MP, MG, CBC ####[facility] Basophils Auto (Bld) [#/Vol] Ordered By: Danie Jaramillo on 07-12-2024 Basophils (Bld) [#/Vol] Automated basophil count 0.0-0.2 [facility] Basophils/100 WBC Auto (Bld) Ordered By: Danie Jaramillo on 07-12-2024 Basophils/100 WBC (Bld) Automated basophil % . [facility] Calcium [Mass/volume] in Ser um or PlasmaOrdered By: Danie Jaramillo on 07-12-2024 Calcium [Mass/Vol] Calcium [Mass/volume ] in Serum or Plasma 8.6-10.3 [facility] Carbon dioxide, total [Moles /volume] in Serum or PlasmaOrdered By: Danie Jaramillo on 07-12-2024 CO2 [Moles/Vol] Carbon dioxide, tota l [Moles/volume] in Serum or Plasma 21.0-31.0 [facility] Chloride [Moles/volume] in S [place] or PlasmaOrdered By: Danie Jaramillo on 07-12-2024 Chloride [Moles/Vol] Chloride [Moles/vol ume] in Serum or Plasma High 98-107 [facility] Complete Blood Count Auto Di ffon 07-12-2024 Basophils (Bld) [#/Vol] 0.0 10*3/uL Normal 0.0-0.2 [facility] Comment on above: Result Comment: PERF ORMED BY:[address] [place], [place] [phone] MEDICAL DIRECTORRHONDA MCLEAN M.D. Performed By: #### B MP, MG, CBC ####[place] [id number] [facility] Basophils/100 WBC (Bld) 0.5 % Normal . [facility] Comment on above: Performed By: #### B MP, MG, CBC ####[address] Eosinophils (Bld) [#/Vol] 0.2 10*3/uL Normal 0.0-0.45 [facility] Comment on above: Performed By: #### B MP, MG, CBC ####[address] Eosinophils/100 WBC (Bld) 2.1 % Normal . [facility] Comment on above: Performed By: #### B MP, MG, CBC ####[address] Erythrocyte distribution width (RBC) [Ratio] 14.5 % Normal 12.0-14.8 [facility] Comment on above: Performed By: #### B MP, MG, CBC ####[place] [id number] [facility] Hematocrit (Bld) [Volume fraction] 36.1 % Low 38.8-50.0 [facility] Comment on above: Performed By: #### B MP, MG, CBC ####[place] [id number] [facility] Hemoglobin (Bld) [Mass/Vol] 12.2 g/dL Low 13.0-17.0 [facility] Comment on above: Performed By: #### B MP, MG, CBC ####[address] Lymphocytes (Bld) [#/Vol] 1.5 10*3/uL Normal 1.00-4.8 [facility] Comment on above: Performed By: #### B MP, MG, CBC ####[address] Lymphocytes/100 WBC (Bld) 18.6 % Normal . [facility] Comment on above: Performed By: #### B MP, MG, CBC ####[address] MCH (RBC) [Entitic mass] 30.8 pg Normal 27.5-35.2 [facility] Comment on above: Performed By: #### B MP, MG, CBC ####[address] MCV (RBC) [Entitic vol] 91.0 fL Normal 83.5-101 [facility] Comment on above: Performed By: #### B MP, MG, CBC ####[address] Mean Corpuscular HGB Conc 33.8 g/dL Normal 32.5-35.6 [facility] Comment on above: Performed By: #### B MP, MG, CBC ####[address] Monocytes (Bld) [#/Vol] 0.8 10*3/uL Normal 0.0-0.8 [facility] Comment on above: Performed By: #### B MP, MG, CBC ####[address] Monocytes/100 WBC (Bld) 10.5 % Normal . [facility] Comment on above: Performed By: #### B MP, MG, CBC ####[address] Neutrophils (Bld) [#/Vol] 5.5 10*3/uL Normal 1.8-7.7 [facility] Comment on above: Performed By: #### B MP, MG, CBC ####[address] Neutrophils/100 WBC (Bld) 68.3 % Normal . [facility] Comment on above: Performed By: #### B MP, MG, CBC ####[address] NRBC% 0.1 /100{WBC} Normal 0-0.5 [facility] Comment on above: Performed By: #### B MP, MG, CBC ####[address] Platelet mean volume (Bld) [Entitic vol] 8.0 fL Normal 6.6-10.1 [facility] Comment on above: Performed By: #### B MP, MG, CBC ####[address] Platelets (Bld) [#/Vol] 208 10*3/uL Normal 150-450 [facility] Comment on above: Performed By: #### B MP, MG, CBC ####[address] RBC (Bld) [#/Vol] 3.96 10*6/uL Normal 3.90-5.60 [facility] Comment on above: Performed By: #### B MP, MG, CBC ####[address] WBC (Bld) [#/Vol] 8.1 10*3/uL Normal 4.1-10.5 [facility] Comment on above: Performed By: #### B MP, MG, CBC ####[address] Creatinine [Mass/volume] in Serum or PlasmaOrdered By: Danie Jaramillo on 07-12-2024 Creatinine [Mass/Vol] Creatinine [Mass/v olume] in Serum or Plasma 0.70-1.30 [facility] Eosinophils Auto (Bld) [#/Vo l]Ordered By: Danie Jaramillo on 07-12-2024 Eosinophils (Bld) [#/Vol] Automated eosinophil count 0.0-0.45 [facility] Eosinophils/100 WBC Auto (Bl d)Ordered By: Danie Jaramillo on 07-12-2024 Eosinophils/100 WBC (Bld) Automated eosinophil % . [facility] Erythrocyte distribution wid th Auto (RBC) [Ratio]Ordered By: Danie Jraamillo on 07-12-2024 Erythrocyte distribution width (RBC) [Ratio] Erythrocyte distribution width [Ratio] by Automated count 12.0-14.8 [facility] Glucose [Mass/volume] in Ser um or PlasmaOrdered By: Danie Jaramillo on 07-12-2024 Glucose [Mass/Vol] Glucose [Mass/volume ] in Serum or Plasma 70-100 [facility] Hematocrit Auto (Bld) [Volum e fraction]Ordered By: Danie Jaramillo on 07-12-2024 Hematocrit (Bld) [Volume fraction] Hematocrit [Volume Fraction] of Blood by Automated count Low 38.8-50.0 [facility] Hemoglobin [Mass/volume] in BloodOrdered By: Danie Jaramillo on 07-12-2024 Hemoglobin (Bld) [Mass/Vol] Hemoglobin [Mass/volume] in Blood Low 13.0-17.0 [facility] Leukocytes [#/volume] correc blessing for nucleated erythrocytes in Blood by Automated counOrdered By: Danie Jaramillo on 07-12-2024 WBC corrected for nucl RBC Auto (Bld) [#/Vol] Leukocytes [#/volume] corrected for nucleated erythrocytes in Blood by Automated coun 4.1-10.5 [facility] Lymphocytes Auto (Bld) [#/Vo l]Ordered By: Danie Jaramillo on 07-12-2024 Lymphocytes (Bld) [#/Vol] Lymphocytes [#/volume] in Blood by Automated count 1.00-4.8 [facility] Lymphocytes/100 WBC Auto (Bl d)Ordered By: Danie Jaramillo on 07-12-2024 Lymphocytes/100 WBC (Bld) Lymphocytes/100 leukocytes in Blood by Automated count . [facility] MCH Auto (RBC) [Entitic mass ]Ordered By: Danie Jaramillo on 07-12-2024 MCH (RBC) [Entitic mass] MCH [Entitic mass] by Automated count 27.5-35.2 [facility] MCHC Auto (RBC) [Mass/Vol]Or dered By: Danie Jaramillo on 07-12-2024 MCHC (RBC) [Mass/Vol] MCHC [Mass/volume] by Automated count 32.5-35.6 [facility] MCV Auto (RBC) [Entitic vol] Ordered By: Danie Jaramillo on 07-12-2024 MCV (RBC) [Entitic vol] MCV [Entitic volume] by Automated count 83.5-101 [facility] Magnesiumon 07-12-2024 Magnesium [Mass/Vol] 1.6 mg/dL Low 1.9-2.7 [facility] Comment on above: Result Comment: PERF ORMED BY:[facility] [place], [place] [phone] MEDICAL DIRECTORRHONDA MCLEAN M.D. Performed By: #### B MP, MG, CBC ####[facility] [place] [address] [facility] Magnesium [Mass/volume] in S [place] or PlasmaOrdered By: Danie Jaramillo on 07-12-2024 Magnesium [Mass/Vol] Magnesium [Mass/vol ume] in Serum or Plasma Low 1.9-2.7 [facility] Monocytes Auto (Bld) [#/Vol] Ordered By: Danie Jaramillo on 07-12-2024 Monocytes (Bld) [#/Vol] Automated blood monocyte count 0.0-0.8 [facility] Monocytes/100 WBC Auto (Bld) Ordered By: Danie Jaramillo on 07-12-2024 Monocytes/100 WBC (Bld) Automated monocyte % . [facility] Neutrophils Auto (Bld) [#/Vo l]Ordered By: Danie Jaramillo on 07-12-2024 Neutrophils (Bld) [#/Vol] Neutrophils [#/volume] in Blood by Automated count 1.8-7.7 [facility] Neutrophils/100 WBC Auto (Bl d)Ordered By: Danie Jaramillo on 07-12-2024 Neutrophils/100 WBC (Bld) Automated neutrophil % . [facility] No Panel InformationOrdered By: Danie Jaramillo on 07-12-2024 > 60.0 mL/Min [facility] 75.22 [facility] Nucleated erythrocytes [Pres ence] in Blood by Automated countOrdered By: Danie Jaramillo on 07-12-2024 Nucleated RBC Auto Ql (Bld) Nucleated erythrocytes [Presence] in Blood by Automated count 0-0.5 [facility] Platelet mean volume Auto (B ld) [Entitic vol]Ordered By: Danie Jaramillo on 07-12-2024 Platelet mean volume (Bld) [Entitic vol] Platelet mean volume [Entitic volume] in Blood by Automated count 6.6-10.1 [facility] Platelets Auto (Bld) [#/Vol] Ordered By: Danie Jaramillo on 07-12-2024 Platelets (Bld) [#/Vol] Platelets [#/volume] in Blood by Automated count 150-450 [facility] Potassium [Moles/volume] in Serum or PlasmaOrdered By: Danie Jaramillo on 07-12-2024 Potassium [Moles/Vol] Potassium [Moles/v olume] in Serum or Plasma Low 3.5-5.1 [facility] RBC Auto (Bld) [#/Vol]Ordere d By: Danie Jaramillo on 07-12-2024 RBC (Bld) [#/Vol] Erythrocytes [#/volu me] in Blood by Automated count 3.90-5.60 [facility] Serum or plasma anion gap de terminationOrdered By: Danie Jaramillo on 07-12-2024 Anion gap [Moles/Vol] Serum or plasma an ion gap determination 6.0-15.0 [facility] Sodium [Moles/volume] in Ser um or PlasmaOrdered By: Danie Jaramillo on 07-12-2024 Sodium [Moles/Vol] Sodium [Moles/volume ] in Serum or Plasma Significant change down 136-145 [facility] Urea nitrogen [Mass/volume] in Serum or PlasmaOrdered By: Danie Jaramillo on 07-12-2024 Urea nitrogen [Mass/Vol] Urea nitrogen [Mass/volume] in Serum or Plasma 7-25 [facility] WBC Auto (Bld) [#/Vol]Ordere d By: Danie Jaramillo on 07-12-2024 WBC (Bld) [#/Vol] Leukocytes [#/volume ] in Blood by Automated count 4.1-10.5 [facility] Basic Metabolic Panelon 11-2 Anion gap [Moles/Vol] Not performed Normal 6.0-15.0 [facility] Comment on above: Performed By: #### C BC, MG, BMP ####[place] [id number] [place] [address] [facility] Calcium [Mass/Vol] 8.9 mg/dL Normal 8.6-10.3 [facility] Comment on above: Performed By: #### C BC, MG, BMP ####[place] [id number] [facility] Chloride [Moles/Vol] 110 mmol/L High 98-107 [facility] Comment on above: Performed By: #### C BC, MG, BMP ####[address] [address] [facility] CO2 [Moles/Vol] 27.8 mmol/L Normal 21.0-31.0 [facility] Comment on above: Performed By: #### C BC, MG, BMP ####[address] [address] [facility] Creatinine [Mass/Vol] 1.07 mg/dL Normal 0.70-1.30 [facility] Comment on above: Performed By: #### C BC, MG, BMP ####[address] [address] [facility] Creatinine Clr Calc Pharmacy 75.55 Normal [facility] Comment on above: Performed By: #### C BC, MG, BMP ####[address] [address] [place] GFR/1.73 sq M.predicted MDRD (S/P/Bld) [Vol rate/Area] mL/min/{1.73_m2} Normal [facility] Comment on above: Performed By: #### C BC, MG, BMP ####[address] [address] [facility] Glucose [Mass/Vol] 100 mg/dL Normal 70-100 [facility] Comment on above: Result Comment: [place] Glucose Reference Range is dependent on time and content of last meal. Glucose of more than 200 mg/dL in a nonstressed, ambulatory subject supports the diagnosis of Diabetes Mellitus. ADA recommended reference range Performed By: #### C VERÓNICA MG, BMP ####[place] [id number] [address] Potassium Normal 3.5-5.1 [facility] Comment on above: Result Comment: Spec imen hemolyzed, redraw requested Performed By: #### C VERÓNICA MG, BMP ####[address] Sodium [Moles/Vol] 136 mmol/L Normal 136-145 [facility] Comment on above: Performed By: #### C VERÓNICA MG, BMP ####[address] Urea nitrogen [Mass/Vol] 25 mg/dL Normal 7-25 [facility] Comment on above: Performed By: #### C VERÓNICA MG, BMP ####[address] Complete Blood Count Auto Di ffon 07-11-2024 Basophils (Bld) [#/Vol] 0.0 10*3/uL Normal 0.0-0.2 [facility] Comment on above: Result Comment: PERF ORMED BY:[address] [place], [place] [phone] MEDICAL DIRECTORRHONDA MCLEAN M.D. Performed By: #### C VERÓNICA MG, BMP ####[address] Basophils/100 WBC (Bld) 0.5 % Normal . [facility] Comment on above: Performed By: #### C VERÓNICA MG, BMP ####[address] Eosinophils (Bld) [#/Vol] 0.1 10*3/uL Normal 0.0-0.45 [facility] Comment on above: Performed By: #### C VERÓNICA MG, BMP ####[place] [id number] [facility] Eosinophils/100 WBC (Bld) 1.3 % Normal . [facility] Comment on above: Performed By: #### C BC, MG, BMP ####[address] Erythrocyte distribution width (RBC) [Ratio] 15.1 % High 12.0-14.8 [facility] Comment on above: Performed By: #### C BC, MG, BMP ####[address] Hematocrit (Bld) [Volume fraction] 37.7 % Low 38.8-50.0 [facility] Comment on above: Performed By: #### C BC, MG, BMP ####[address] Hemoglobin (Bld) [Mass/Vol] 12.6 g/dL Low 13.0-17.0 [facility] Comment on above: Performed By: #### C BC, MG, BMP ####[address] Lymphocytes (Bld) [#/Vol] 1.4 10*3/uL Normal 1.00-4.8 [facility] Comment on above: Performed By: #### C BC, MG, BMP ####[place] [id number] [facility] Lymphocytes/100 WBC (Bld) 19.1 % Normal . [facility] Comment on above: Performed By: #### C BC, MG, BMP ####[address] MCH (RBC) [Entitic mass] 30.6 pg Normal 27.5-35.2 [facility] Comment on above: Performed By: #### C BC, MG, BMP ####[place] [id number] [facility] MCV (RBC) [Entitic vol] 91.4 fL Normal 83.5-101 [facility] Comment on above: Performed By: #### C BC, MG, BMP ####[address] Mean Corpuscular HGB Conc 33.5 g/dL Normal 32.5-35.6 [facility] Comment on above: Performed By: #### C BC, MG, BMP ####[address] Monocytes (Bld) [#/Vol] 0.7 10*3/uL Normal 0.0-0.8 [facility] Comment on above: Performed By: #### C BC, MG, BMP ####[address] Monocytes/100 WBC (Bld) 9.1 % Normal . [facility] Comment on above: Performed By: #### C BC, MG, BMP ####[address] Neutrophils (Bld) [#/Vol] 5.2 10*3/uL Normal 1.8-7.7 [facility] Comment on above: Performed By: #### C BC, MG, BMP ####[address] Neutrophils/100 WBC (Bld) 70.0 % Normal . [facility] Comment on above: Performed By: #### C BC, MG, BMP ####[address] NRBC% 0.1 /100{WBC} Normal 0-0.5 [facility] Comment on above: Performed By: #### C BC, MG, BMP ####[address] Platelet mean volume (Bld) [Entitic vol] 8.0 fL Normal 6.6-10.1 [facility] Comment on above: Performed By: #### C BC, MG, BMP ####[address] Platelets (Bld) [#/Vol] 217 10*3/uL Normal 150-450 [facility] Comment on above: Performed By: #### C BC, MG, BMP ####[address] RBC (Bld) [#/Vol] 4.13 10*6/uL Normal 3.90-5.60 [facility] Comment on above: Performed By: #### C BC, MG, BMP ####[address] WBC (Bld) [#/Vol] 7.4 10*3/uL Normal 4.1-10.5 [facility] Comment on above: Performed By: #### C BC, MG, BMP ####[address] Magnesiumon 07-11-2024 Magnesium Normal 1.9-2.7 [facility] Comment on above: Result Comment: Spec imen hemolyzed, redraw requestedPERFORMED BY:[address] [place], [place] [phone] MEDICAL DIRECTORRHONDA MCLEAN M.D. Performed By: #### C BC, MG, BMP ####[address] Redraw Magnesiumon 4 Magnesium [Mass/Vol] 1.6 mg/dL Low 1.9-2.7 [facility] Comment on above: Result Comment: PERF ORMED BY:[address] [place], [place] [phone] MEDICAL DIRECTORRHONDA MCLEAN M.D. Performed By: #### R EDRAW MG, REDRAW K ####[address] Redraw Potassiumon 4 Potassium [Moles/Vol] 3.5 mmol/L Normal 3.5-5.1 [facility] Comment on above: Performed By: #### R EDRAW MG, REDRAW K ####[place] [id number] [place] [address] [facility] Basic Metabolic Panelon 11-2 -2023 Anion gap [Moles/Vol] 11.4 mmol/L Normal 6.0-15.0 [facility] Comment on above: Performed By: #### M G, CBC, BMP ####[place] [id number] [facility] Calcium [Mass/Vol] 9.0 mg/dL Normal 8.6-10.3 [facility] Comment on above: Performed By: #### M G, CBC, BMP ####[place] [id number] [facility] Chloride [Moles/Vol] 106 mmol/L Normal 98-107 [facility] Comment on above: Performed By: #### M G, CBC, BMP ####[place] [id number] [facility] CO2 [Moles/Vol] 27.8 mmol/L Normal 21.0-31.0 [facility] Comment on above: Performed By: #### M G, CBC, BMP ####[place] [id number] [facility] Creatinine [Mass/Vol] 1.29 mg/dL Significan t change down 0.70-1.30 [facility] Comment on above: Performed By: #### M G, CBC, BMP ####[place] [id number] [facility] Creatinine Clr Calc Pharmacy 62.66 Normal [facility] Comment on above: Performed By: #### M G, CBC, BMP ####[address] [address] [facility] Estimated GFR 56.052 mL/Min Normal [facility] Comment on above: Performed By: #### M G, CBC, BMP ####[place] [id number] [facility] Glucose [Mass/Vol] 110 mg/dL High 70-100 [facility] Comment on above: Result Comment: [place] Glucose Reference Range is dependent on time and content of last meal. Glucose of more than 200 mg/dL in a nonstressed, ambulatory subject supports the diagnosis of Diabetes Mellitus. ADA recommended reference range Performed By: #### M Hannah, CBC, BMP ####[address] Potassium [Moles/Vol] 4.2 mmol/L Normal 3.5-5.1 [facility] Comment on above: Performed By: #### Marcial G, CBC, BMP ####[address] Sodium [Moles/Vol] 141 mmol/L Normal 136-145 [facility] Comment on above: Performed By: #### Marcial Young, CBC, BMP ####[address] Urea nitrogen [Mass/Vol] 29 mg/dL High 7-25 [facility] Comment on above: Performed By: #### Marcial Young, CBC, BMP ####[address] Complete Blood Count Auto Di ffon 07-10-2024 Basophils (Bld) [#/Vol] 0.0 10*3/uL Normal 0.0-0.2 [facility] Comment on above: Result Comment: PERF ORMED BY:[address] [place], [place] [phone] MEDICAL DIRECTORRHONDA MCLEAN M.D. Performed By: #### Marcial Young, CBC, BMP ####[address] Basophils/100 WBC (Bld) 0.6 % Normal . [facility] Comment on above: Performed By: #### Marcial G, CBC, BMP ####[address] Eosinophils (Bld) [#/Vol] 0.0 10*3/uL Normal 0.0-0.45 [facility] Comment on above: Performed By: #### Marcial G, CBC, BMP ####[address] Eosinophils/100 WBC (Bld) 0.4 % Normal . [facility] Comment on above: Performed By: #### M G, CBC, BMP ####[address] [address] Erythrocyte distribution width (RBC) [Ratio] 14.7 % Normal 12.0-14.8 [facility] Comment on above: Performed By: #### M G, CBC, BMP ####[address] Hematocrit (Bld) [Volume fraction] 37.6 % Low 38.8-50.0 [facility] Comment on above: Performed By: #### M G, CBC, BMP ####[address] Hemoglobin (Bld) [Mass/Vol] 12.7 g/dL Low 13.0-17.0 [facility] Comment on above: Performed By: #### M G, CBC, BMP ####[address] Lymphocytes (Bld) [#/Vol] 1.1 10*3/uL Normal 1.00-4.8 [facility] Comment on above: Performed By: #### M G, CBC, BMP ####[address] Lymphocytes/100 WBC (Bld) 13.3 % Normal . [facility] Comment on above: Performed By: #### M G, CBC, BMP ####[address] MCH (RBC) [Entitic mass] 31.1 pg Normal 27.5-35.2 [facility] Comment on above: Performed By: #### M G, CBC, BMP ####[address] MCV (RBC) [Entitic vol] 91.9 fL Normal 83.5-101 [facility] Comment on above: Performed By: #### M G, CBC, BMP ####[place] [id number] [facility] Mean Corpuscular HGB Conc 33.9 g/dL Normal 32.5-35.6 [facility] Comment on above: Performed By: #### M G, CBC, BMP ####[address] Monocytes (Bld) [#/Vol] 0.8 10*3/uL Normal 0.0-0.8 [facility] Comment on above: Performed By: #### M G, CBC, BMP ####[address] Monocytes/100 WBC (Bld) 10.5 % Normal . [facility] Comment on above: Performed By: #### M G, CBC, BMP ####[address] Neutrophils (Bld) [#/Vol] 6.0 10*3/uL Normal 1.8-7.7 [facility] Comment on above: Performed By: #### M G, CBC, BMP ####[place] [id number] [facility] Neutrophils/100 WBC (Bld) 75.2 % Normal . [facility] Comment on above: Performed By: #### M G, CBC, BMP ####[address] NRBC% 0.1 /100{WBC} Normal 0-0.5 [facility] Comment on above: Performed By: #### M G, CBC, BMP ####[place] [id number] [facility] Platelet mean volume (Bld) [Entitic vol] 8.2 fL Normal 6.6-10.1 [facility] Comment on above: Performed By: #### M G, CBC, BMP ####[place] [id number] [facility] Platelets (Bld) [#/Vol] 210 10*3/uL Normal 150-450 [facility] Comment on above: Performed By: #### M G, CBC, BMP ####[place] [id number] RBC (Bld) [#/Vol] 4.09 10*6/uL Normal 3.90-5.60 [facility] Comment on above: Performed By: #### M G, CBC, BMP ####[place] [id number] [place] [id number] [facility] WBC (Bld) [#/Vol] 8.0 10*3/uL Normal 4.1-10.5 [facility] Comment on above: Performed By: #### M G, CBC, BMP ####[place] [id number] [place] [id number] [facility] Magnesiumon 07-10-2024 Magnesium [Mass/Vol] 1.9 mg/dL Normal 1.9-2.7 [facility] Comment on above: Result Comment: PERF ORMED BY:[address] [place], [place] [phone] MEDICAL DIRECTORRHONDA MCLEAN M.D. Performed By: #### M G, CBC, BMP ####[place] [id number] [facility] Alanine aminotransferase [En zymatic activity/volume] in Serum or PlasmaOrdered By: Juli Thomas on 07-09-2024 ALT [Catalytic activity/Vol] Alanine aminotransferase [Enzymatic activity/volume] in Serum or Plasma 7-52 [facility] Albumin [Mass/volume] in Ser um or Plasma by Bromocresol green (BCG) dye binding methoOrdered By: Juli Thomas on 07-09-2024 Albumin BCG dye [Mass/Vol] Albumin [Mass/volume] in Serum or Plasma by Bromocresol green (BCG) dye binding metho 3.5-5.7 [facility] Alkaline phosphatase [Enzyma tic activity/volume] in Serum or PlasmaOrdered By: Juli Thomas on 07-09-2024 ALP [Catalytic activity/Vol] Alkaline phosphatase [Enzymatic activity/volume] in Serum or Plasma 34-104 [facility] Appearance of UrineOrdered B y: Juli Thomas on 07-09-2024 Appearance (U) Urine appearance Clear [facility] Aspartate aminotransferase [ Enzymatic activity/volume] in Serum or PlasmaOrdered By: Juli Cheekdeborah on 07-09-2024 AST [Catalytic activity/Vol] Aspartate aminotransferase [Enzymatic activity/volume] in Serum or Plasma 13-39 [facility] Bacteria [Presence] in Urine by AutomatedOrdered By: Juli Adiadeborah on 07-09-2024 Bacteria Auto Ql (U) Bacteria [Presence] in Urine by Automated None Seen [facility] Basophils Auto (Bld) [#/Vol] Ordered By: Juli [facility] on 07-09-2024 Basophils (Bld) [#/Vol] Automated basophil count 0.0-0.2 [facility] Basophils/100 WBC Auto (Bld) Ordered By: Juli Adiamomagdalena on 07-09-2024 Basophils/100 WBC (Bld) Automated basophil % . [facility] Bilirubin Test strip Ql (U)O rdered By: Juli Adiadeborah on 07-09-2024 Bilirubin Ql (U) Bilirubin.total [Pre sence] in Urine by Test strip Negative [facility] Bilirubin.total [Mass/volume ] in Serum or PlasmaOrdered By: Juli Adiadeborah on 07-09-2024 Bilirubin [Mass/Vol] Bilirubin.total [Mass/volume] in Serum or Plasma 0.3-1.0 [facility] C reactive protein [Mass/vol ume] in Serum or PlasmaOrdered By: Juli Thomas on 07-09-2024 CRP [Mass/Vol] C reactive protein [Mass/volume] in Serum or Plasma High 0.0-0.5 [facility] C-Reactive Proteinon 024 C-Reactive Protein 3.1 mg/dL High 0.0-0.5 [facility] Comment on above: Result Comment: PERF ORMED BY:[facility] [place], [place] [phone] MEDICAL DIRECTORRHONDA MCLEAN M.D. Performed By: #### C RP, HS TROP, CBC, MG, PT, PTT, CMP ####[place] [id number] [place] [id number] [facility] CT angio neckon 07-09-2024 CT angio neck Normal [facility] CT head stroke alert wo cono n 07-09-2024 CT head stroke alert wo con Normal [facility] Calcium [Mass/volume] in Ser um or PlasmaOrdered By: Juli Thomas on 07-09-2024 Calcium [Mass/Vol] Calcium [Mass/volume ] in Serum or Plasma 8.6-10.3 [facility] Carbon dioxide, total [Moles /volume] in Serum or PlasmaOrdered By: Juli Thomas on 07-09-2024 CO2 [Moles/Vol] Carbon dioxide, tota l [Moles/volume] in Serum or Plasma 21.0-31.0 [facility] Chloride [Moles/volume] in S [place] or PlasmaOrdered By: Juli Thomas on 07-09-2024 Chloride [Moles/Vol] Chloride [Moles/vol ume] in Serum or Plasma 98-107 [facility] Color Auto (U)Ordered By: Goyo Thomas on 07-09-2024 Color (U) Color of Urine by Auto Yellow Fi [facility] Complete Blood Count Auto Di ffon 07-09-2024 Basophils (Bld) [#/Vol] 0.0 10*3/uL Normal 0.0-0.2 [facility] Comment on above: Result Comment: PERF ORMED BY:[address] [place], [place] [phone] MEDICAL DIRECTORRHONDA MCLEAN M.D. Performed By: #### C RP, HS TROP, CBC, MG, PT, PTT, CMP ####[place] [id number] [place] [id number] [facility] Basophils/100 WBC (Bld) 0.4 % Normal . [facility] Comment on above: Performed By: #### C RP, HS TROP, CBC, MG, PT, PTT, CMP ####[place] [id number] [facility] Eosinophils (Bld) [#/Vol] 0.1 10*3/uL Normal 0.0-0.45 [facility] Comment on above: Performed By: #### C RP, HS TROP, CBC, MG, PT, PTT, CMP ####[address] Eosinophils/100 WBC (Bld) 0.6 % Normal . [facility] Comment on above: Performed By: #### C RP, HS TROP, CBC, MG, PT, PTT, CMP ####[address] Erythrocyte distribution width (RBC) [Ratio] 15.0 % High 12.0-14.8 [facility] Comment on above: Performed By: #### C RP, HS TROP, CBC, MG, PT, PTT, CMP ####[address] Hematocrit (Bld) [Volume fraction] 39.5 % Normal 38.8-50.0 [facility] Comment on above: Performed By: #### C RP, HS TROP, CBC, MG, PT, PTT, CMP ####[address] Hemoglobin (Bld) [Mass/Vol] 13.1 g/dL Normal 13.0-17.0 [facility] Comment on above: Performed By: #### C RP, HS TROP, CBC, MG, PT, PTT, CMP ####[address] Lymphocytes (Bld) [#/Vol] 0.7 10*3/uL Low 1.00-4.8 [facility] Comment on above: Performed By: #### C RP, HS TROP, CBC, MG, PT, PTT, CMP ####[address] Lymphocytes/100 WBC (Bld) 6.3 % Normal . [facility] Comment on above: Performed By: #### C RP, HS TROP, CBC, MG, PT, PTT, CMP ####[address] MCH (RBC) [Entitic mass] 30.8 pg Normal 27.5-35.2 [facility] Comment on above: Performed By: #### C RP, HS TROP, CBC, MG, PT, PTT, CMP ####[address] MCV (RBC) [Entitic vol] 92.6 fL Normal 83.5-101 [facility] Comment on above: Performed By: #### C RP, HS TROP, CBC, MG, PT, PTT, CMP ####[address] Mean Corpuscular HGB Conc 33.2 g/dL Normal 32.5-35.6 [facility] Comment on above: Performed By: #### C RP, HS TROP, CBC, MG, PT, PTT, CMP ####[address] Monocytes (Bld) [#/Vol] 1.3 10*3/uL High 0.0-0.8 [facility] Comment on above: Performed By: #### C RP, HS TROP, CBC, MG, PT, PTT, CMP ####[address] Monocytes/100 WBC (Bld) 18.70 % Normal 0.00-20.00 [facility] Comment on above: Performed By: #### C RP, HS TROP, CBC, MG, PT, PTT, CMP ####[address] Monocytes/100 WBC (Bld) 12.2 % Normal . [facility] Comment on above: Performed By: #### C RP, HS TROP, CBC, MG, PT, PTT, CMP ####[address] Neutrophils (Bld) [#/Vol] 8.4 10*3/uL High 1.8-7.7 [facility] Comment on above: Performed By: #### C RP, HS TROP, CBC, MG, PT, PTT, CMP ####[address] Neutrophils/100 WBC (Bld) 80.5 % Normal . [facility] Comment on above: Performed By: #### C RP, HS TROP, CBC, MG, PT, PTT, CMP ####[address] NRBC% 0.0 /100{WBC} Normal 0-0.5 [facility] Comment on above: Performed By: #### C RP, HS TROP, CBC, MG, PT, PTT, CMP ####[address] Platelet mean volume (Bld) [Entitic vol] 7.9 fL Normal 6.6-10.1 [facility] Comment on above: Performed By: #### C RP, HS TROP, CBC, MG, PT, PTT, CMP ####[address] Platelets (Bld) [#/Vol] 229 10*3/uL Normal 150-450 [facility] Comment on above: Performed By: #### C RP, HS TROP, CBC, MG, PT, PTT, CMP ####[address] RBC (Bld) [#/Vol] 4.27 10*6/uL Normal 3.90-5.60 [facility] Comment on above: Performed By: #### C RP, HS TROP, CBC, MG, PT, PTT, CMP ####[address] WBC (Bld) [#/Vol] 10.4 10*3/uL Normal 4.1-10.5 [facility] Comment on above: Performed By: #### C RP, HS TROP, CBC, MG, PT, PTT, CMP ####[address] Comprehensive Metabolic Pane [facility] 07-09-2024 Albumin [Mass/Vol] 3.5 g/dL Normal 3.5-5.7 [facility] Comment on above: Performed By: #### C RP, HS TROP, CBC, MG, PT, PTT, CMP ####[address] Albumin/Globulin [Mass ratio] 1.3 {ratio} Normal [facility] Comment on above: Performed By: #### C RP, HS TROP, CBC, MG, PT, PTT, CMP ####[address] ALP [Catalytic activity/Vol] 53 U/L Normal 34-104 [facility] Comment on above: Performed By: #### C RP, HS TROP, CBC, MG, PT, PTT, CMP ####[address] ALT [Catalytic activity/Vol] 17 U/L Normal 7-52 [facility] Comment on above: Performed By: #### C RP, HS TROP, CBC, MG, PT, PTT, CMP ####[address] Anion gap [Moles/Vol] 11.2 mmol/L Normal 6.0-15.[address] [facility] Comment on above: Performed By: #### C RP, HS TROP, CBC, MG, PT, PTT, CMP ####[address] AST [Catalytic activity/Vol] 18 U/L Normal 13-39 [facility] Comment on above: Performed By: #### C RP, HS TROP, CBC, MG, PT, PTT, CMP ####[address] Bilirubin [Mass/Vol] 0.7 mg/dL Normal 0.3-1.0 [facility] Comment on above: Performed By: #### C RP, HS TROP, CBC, MG, PT, PTT, CMP ####[address] Calcium [Mass/Vol] 9.5 mg/dL Normal 8.6-10.3 [facility] Comment on above: Performed By: #### C RP, HS TROP, CBC, MG, PT, PTT, CMP ####[address] Chloride [Moles/Vol] 104 mmol/L Normal 98-107 [facility] Comment on above: Performed By: #### C RP, HS TROP, CBC, MG, PT, PTT, CMP ####[address] CO2 [Moles/Vol] 28.8 mmol/L Normal 21.0-31.0 [facility] Comment on above: Performed By: #### C RP, HS TROP, CBC, MG, PT, PTT, CMP ####[address] Creatinine [Mass/Vol] 1.86 mg/dL High 0.70-1.30 [facility] Comment on above: Performed By: #### C RP, HS TROP, CBC, MG, PT, PTT, CMP ####[address] Estimated GFR 36.131 mL/Min Normal [facility] Comment on above: Performed By: #### C RP, HS TROP, CBC, MG, PT, PTT, CMP ####[address] Globulin (S) [Mass/Vol] 2.7 g/dL Normal [facility] Comment on above: Performed By: #### C RP, HS TROP, CBC, MG, PT, PTT, CMP ####[address] Glucose [Mass/Vol] 135 mg/dL High 70-100 [facility] Comment on above: Result Comment: [place] Glucose Reference Range is dependent on time and content of last meal. Glucose of more than 200 mg/dL in a nonstressed, ambulatory subject supports the diagnosis of Diabetes Mellitus. ADA recommended reference range Performed By: #### C RP, HS TROP, CBC, MG, PT, PTT, CMP ####[address] Potassium [Moles/Vol] 4.0 mmol/L Normal 3.5-5.1 [facility] Comment on above: Performed By: #### C RP, HS TROP, CBC, MG, PT, PTT, CMP ####[address] Protein [Mass/Vol] 6.2 g/dL Low 6.4-8.9 [facility] Comment on above: Performed By: #### C RP, HS TROP, CBC, MG, PT, PTT, CMP ####[address] Sodium [Moles/Vol] 140 mmol/L Normal 136-145 [facility] Comment on above: Performed By: #### C RP, HS TROP, CBC, MG, PT, PTT, CMP ####[address] Urea nitrogen [Mass/Vol] 37 mg/dL High 7-25 [facility] Comment on above: Performed By: #### C RP, HS TROP, CBC, MG, PT, PTT, CMP ####[address] Creatinine [Mass/volume] in Serum or PlasmaOrdered By: Juli Thomas on 07-09-2024 Creatinine [Mass/Vol] Creatinine [Mass/v olume] in Serum or Plasma High 0.70-1.30 [facility] Dipstick and Microscopicon 1 09-08-2023 Appearance (U) Clear Normal Clear [facility] Comment on above: Order Comment: Name Collection Type:: Clean-Voided Midstream Performed By: #### A DDONUAPLUS ####[address] Bacteria,Urine None Seen Normal None Seen [facility] Comment on above: Order Comment: Name Collection Type:: Clean-Voided Midstream Performed By: #### A DDONUAPLUS ####[address] Bilirubin,Urine Negative Normal Negative [facility] Comment on above: Order Comment: Name Collection Type:: Clean-Voided Midstream Performed By: #### A DDONUAPLUS ####[address] [address] [facility] Color (U) Light-Yellow Normal Yellow [facility] Comment on above: Order Comment: Name Collection Type:: Clean-Voided Midstream Performed By: #### A DDONUAPLUS ####[address] [address] [facility] Glucose Ql (U) Normal Normal Normal [facility] Comment on above: Order Comment: Name Collection Type:: Clean-Voided Midstream Performed By: #### A DDONUAPLUS ####[address] [address] [facility] Hyaline Casts,Urine 0 [LPF] Normal 0-8 [facility] Comment on above: Order Comment: Name Collection Type:: Clean-Voided Midstream Result Comment: PERF ORMED BY:[address], [place] [phone] MEDICAL DIRECTORRHONDA MCLEAN M.D. Performed By: #### A DDONUAPLUS ####[address] [address] [facility] Ketones Ql (U) Negative Normal Negative [facility] Comment on above: Order Comment: Name Collection Type:: Clean-Voided Midstream Performed By: #### A DDONUAPLUS ####[address] [address] [facility] Leukocyte esterase Test strip Ql (U) Negative Normal Negative [facility] Comment on above: Order Comment: Name Collection Type:: Clean-Voided Midstream Performed By: #### A DDONUAPLUS ####[address] [address] [facility] Nitrite,Urine Negative Normal Negative [facility] Comment on above: Order Comment: Name Collection Type:: Clean-Voided Midstream Performed By: #### A DDONUAPLUS ####[place] [phone] [facility] Occult Blood,Urine Negative Normal Negative [facility] Comment on above: Order Comment: Name Collection Type:: Clean-Voided Midstream Result Comment: PERF ORMED BY:[address] [place], [place] [phone] MEDICAL NELLIE MCLEAN M.D. Performed By: #### A DDONUAPLUS ####[place] [id number] [facility] pH (U) 6.5 [pH] Normal 5.0-9.0 [facility] Comment on above: Order Comment: Name Collection Type:: Clean-Voided Midstream Performed By: #### A DDONUAPLUS ####[place] [id number] [facility] Protein,Urine Trace High Negative [facility] Comment on above: Order Comment: Name Collection Type:: Clean-Voided Midstream Performed By: #### A DDONUAPLUS ####[place] [id number] [facility] RBC,Urine 5 [HPF] High 0-4 [facility] Comment on above: Order Comment: Name Collection Type:: Clean-Voided Midstream Performed By: #### A DDONUAPLUS ####[place] [id number] [facility] Specificy [place],Urine 1.018 Normal 1.001-1.03 0 [facility] Comment on above: Order Comment: Name Collection Type:: Clean-Voided Midstream Performed By: #### A DDONUAPLUS ####[place] [id number] [facility] Urobilinogen,Urine Normal Normal Normal [facility] Comment on above: Order Comment: Name Collection Type:: Clean-Voided Midstream Performed By: #### A DDONUAPLUS ####[place] [id number] [facility] WBC,Urine 1 [HPF] Normal 0-4 [facility] Comment on above: Order Comment: Name Collection Type:: Clean-Voided Midstream Performed By: #### A DDONUAPLUS ####[facility] [place] [id number] [facility] ECG 12 lead ECGon 07-09-2024 ECG 12 lead ECG Normal [facility] Eosinophils Auto (Bld) [#/Vo l]Ordered By: Juli Thomas on 07-09-2024 Eosinophils (Bld) [#/Vol] Automated eosinophil count 0.0-0.45 [facility] Eosinophils/100 WBC Auto (Bl d)Ordered By: Juli Thomas on 07-09-2024 Eosinophils/100 WBC (Bld) Automated eosinophil % . [facility] Epithelial cells.squamous [# /area] in Urine sediment by Automated countOrdered By: Juli Thomas on 07-09-2024 Epithelial cells.squamous Auto (Urine sed) [#/Area] Epithelial cells.squamous [#/area] in Urine sediment by Automated count [facility] Erythrocyte Sedimentation Ra kimberlee 07-09-2024 ESR (Bld) [Velocity] 53 mm/h High 0 [facility] Comment on above: Result Comment: PERF ORMED BY:[address] [place], [place] [phone] MEDICAL DIRECTORRHONDA MCLEAN M.D. Performed By: #### E SR ####[facility] [place] [id number] [facility] Erythrocyte distribution wid th Auto (RBC) [Ratio]Ordered By: Juli Thomas on 07-09-2024 Erythrocyte distribution width (RBC) [Ratio] Erythrocyte distribution width [Ratio] by Automated count High 12.0-14.8 [facility] Erythrocyte sedimentation ra te by Photometric methodOrdered By: Juli Thomas on 07-09-2024 ESR Photometric method (Bld) [Velocity] Erythrocyte sedimentation rate by Photometric method High 019 [facility] Erythrocytes [#/area] in Uri ne sediment by Automated countOrdered By: Juli Thomas on 07-09-2024 RBC Auto (Urine sed) [#/Area] Erythrocytes [#/area] in Urine sediment by Automated count High 0-4 [facility] Globulin Calc (S) [Mass/Vol] Ordered By: Juli Thomas on 07-09-2024 Globulin (S) [Mass/Vol] Serum globulin measurement by calculation (mass/volume) [facility] Glucose Glucometer (BldC) [M ass/Vol]Ordered By: Juli Thomas on 07-09-2024 Glucose [Mass/Vol] Capillary blood gluc ose measurement by glucometer (mass/volume) [facility] Comment on above: Random Glucose Refer ence Range is dependent on time and content of last meal. Glucose of more than 200 mg/dL in a nonstressed, ambulatory subject supports the diagnosis of Diabetes Mellitus. Glucose Poct Glucometerson 1 09-08-2023 Glucose [Mass/Vol] 130 mg/dL Normal [facility] Comment on above: Result Comment: [place] om Glucose Reference Range is dependent on time and content of last meal. Glucose of more than 200 mg/dL in a nonstressed, ambulatory subject supports the diagnosis of Diabetes Mellitus.PERFORMED BY:[place] [address] [place], [place] [phone] MEDICAL DIRECTORRHONDA MCLEAN M.D. Performed By: #### G ANASTASIIA ####Point of Care testing, Glucose [Mass/volume] in Ser um or PlasmaOrdered By: Juli Thomas on 07-09-2024 Glucose [Mass/Vol] Glucose [Mass/volume ] in Serum or Plasma High 70-100 [facility] Comment on above: ADA recommended [...] [Mass/volume] in Urine by Test strip Normal [facility] Hematocrit Auto (Bld) [Volum e fraction]Ordered By: Juli Thomas on 07-09-2024 Hematocrit (Bld) [Volume fraction] Hematocrit [Volume Fraction] of Blood by Automated count 38.8-50.0 [facility] Hemoglobin Test strip Ql (U) Ordered By: Juli Thomas on 07-09-2024 Hemoglobin Ql (U) Hemoglobin [Presence ] in Urine by Test strip Negative [facility] Hemoglobin [Mass/volume] in BloodOrdered By: Juli Thomas on 07-09-2024 Hemoglobin (Bld) [Mass/Vol] Hemoglobin [Mass/volume] in Blood 13.0-17.0 [facility] Hyaline casts [#/area] in Ur ine sediment by Automated countOrdered By: Juli Thomas on 07-09-2024 Hyaline casts Auto (Urine sed) [#/Area] Hyaline casts [#/area] in Urine sediment by Automated count 0-8 [facility] INR in Platelet poor plasma by Coagulation assayOrdered By: Juli Thomas on 07-09-2024 INR Coag (PPP) [Relative time] INR in Platelet poor plasma by Coagulation assay [facility] Comment on above: INR Therapeutic Rang [...] i n Urine by Test strip Negative [facility] Leukocyte esterase [Presence ] in Urine by Test stripOrdered By: Juli Thomas on 07-09-2024 Leukocyte esterase Test strip Ql (U) Leukocyte esterase [Presence] in Urine by Test strip Negative [facility] Leukocytes [#/area] in Urine sediment by Automated countOrdered By: Juli Thomas on 07-09-2024 WBC Auto (Urine sed) [#/Area] Leukocytes [#/area] in Urine sediment by Automated count 0-4 [facility] Leukocytes [#/volume] correc blessing for nucleated erythrocytes in Blood by Automated counOrdered By: Juli Thomas on 07-09-2024 WBC corrected for nucl RBC Auto (Bld) [#/Vol] Leukocytes [#/volume] corrected for nucleated erythrocytes in Blood by Automated coun 4.1-10.5 [facility] Lymphocytes Auto (Bld) [#/Vo l]Ordered By: Juli Thomas on 07-09-2024 Lymphocytes (Bld) [#/Vol] Lymphocytes [#/volume] in Blood by Automated count Low 1.00-4.8 [facility] Lymphocytes/100 WBC Auto (Bl d)Ordered By: Juli Thomas on 07-09-2024 Lymphocytes/100 WBC (Bld) Lymphocytes/100 leukocytes in Blood by Automated count . [facility] MCH Auto (RBC) [Entitic mass ]Ordered By: Juli Thomas on 07-09-2024 MCH (RBC) [Entitic mass] MCH [Entitic mass] by Automated count 27.5-35.2 [facility] MCHC Auto (RBC) [Mass/Vol]Or dered By: Juli Thomas on 07-09-2024 MCHC (RBC) [Mass/Vol] MCHC [Mass/volume] by Automated count 32.5-35.6 [facility] MCV Auto (RBC) [Entitic vol] Ordered By: Juli Thomas on 07-09-2024 MCV (RBC) [Entitic vol] MCV [Entitic volume] by Automated count 83.5-101 [facility] Magnesiumon 07-09-2024 Magnesium [Mass/Vol] 1.9 mg/dL Normal 1.9-2.7 [facility] Comment on above: Result Comment: PERF ORMED BY:[facility] [place], [place] [phone] MEDICAL DIRECTORRHONDA MCLEAN M.D. Performed By: #### C RP, HS TROP, CBC, MG, PT, PTT, CMP ####[facility] [place] [address] [facility] Magnesium [Mass/volume] in S [place] or PlasmaOrdered By: Juli Thomas on 07-09-2024 Magnesium [Mass/Vol] Magnesium [Mass/vol ume] in Serum or Plasma 1.9-2.7 [facility] Monocyte distribution width [Entitic volume] in Blood by AutomatedOrdered By: Juli Thomas on 07-09-2024 Monocyte distribution width Auto (Bld) [Entitic vol] Monocyte distribution width [Entitic volume] in Blood by Automated 0.00-20.00 [facility] Monocytes Auto (Bld) [#/Vol] Ordered By: Juli Thomas on 07-09-2024 Monocytes (Bld) [#/Vol] Automated blood monocyte count High 0.0-0.8 [facility] Monocytes/100 WBC Auto (Bld) Ordered By: Juli Thomas on 07-09-2024 Monocytes/100 WBC (Bld) Automated monocyte % . [facility] Neutrophils Auto (Bld) [#/Vo l]Ordered By: Juli Thomas on 07-09-2024 Neutrophils (Bld) [#/Vol] Neutrophils [#/volume] in Blood by Automated count High 1.8-7.7 [facility] Neutrophils/100 WBC Auto (Bl d)Ordered By: Juli Thomas on 07-09-2024 Neutrophils/100 WBC (Bld) Automated neutrophil % . [facility] Nitrite Test strip Ql (U)Ord ered By: Juli Thomas on 07-09-2024 Nitrite Ql (U) Nitrite [Presence] i n Urine by Test strip Negative [facility] No Panel InformationOrdered By: Juli Thomas on 07-09-2024 Estimated GFR (CKD-EPI) 36.131 mL/Min [facility] Creatinine Clearance (Chem N/A [facility] Nucleated erythrocytes [Pres ence] in Blood by Automated countOrdered By: Juli Thomas on 07-09-2024 Nucleated RBC Auto Ql (Bld) Nucleated erythrocytes [Presence] in Blood by Automated count 0-0.5 [facility] Partial Thromboplastin Timeo n 07-09-2024 aPTT Coag (Bld) [Time] 30.8 s Normal 25.1-36.5 [facility] Comment on above: Result Comment: A he matocrit value greater than 55% may lead to inaccurate results in coagulation testing. Patients having hematocrit values >55% require a special collection tube for coagulation studies. Please contact the laboratory at [phone] for redraw instructions.PERFORMED BY:[facility] [place], [place] [phone] MEDICAL DIRECTORRHONDA MCLEAN M.D. Performed By: #### C RP, HS TROP, CBC, MG, PT, PTT, CMP ####[facility] [place] [address] [facility] Platelet mean volume Auto (B ld) [Entitic vol]Ordered By: Juli Thomas on 07-09-2024 Platelet mean volume (Bld) [Entitic vol] Platelet mean volume [Entitic volume] in Blood by Automated count 6.6-10.1 [facility] Platelets Auto (Bld) [#/Vol] Ordered By: Juli Thomas on 07-09-2024 Platelets (Bld) [#/Vol] Platelets [#/volume] in Blood by Automated count 150-450 [facility] Potassium [Moles/volume] in Serum or PlasmaOrdered By: Juli Thomas on 07-09-2024 Potassium [Moles/Vol] Potassium [Moles/v olume] in Serum or Plasma 3.5-5.1 [facility] Protein Test strip (U) [Mass /Vol]Ordered By: Juli Thomas on 07-09-2024 Protein (U) [Mass/Vol] Protein [Mass/vol ume] in Urine by Test strip High Negative [facility] Protein [Mass/volume] in Ser um or PlasmaOrdered By: Juli Thomas on 07-09-2024 Protein [Mass/Vol] Protein [Mass/volume ] in Serum or Plasma Low 6.4-8.9 [facility] Prothrombin Time INRon 07-09 INR Coag (PPP) [Relative time] 1.6 {INR} Normal [facility] Comment on above: Result Comment: [...] HS TROP, CBC, MG, PT, PTT, CMP ####[facility] [place] [id number] [facility] PT Coag (PPP) [Time] 17.8 s High 9.0-12.9 [facility] Comment on above: Result Comment: A he matocrit value greater than 55% may lead to inaccurate results in coagulation testing. Patients having hematocrit values >55% require a special collection tube for coagulation studies. Please contact the laboratory at [phone] for redraw instructions. Performed By: #### C RP, HS TROP, CBC, MG, PT, PTT, CMP ####[facility] Prothrombin time (PT)Ordered By: Juli Thomas on 07-09-2024 PT Coag (PPP) [Time] Prothrombin time (PT) High 9.0- 12.9 [facility] Comment on above: A hematocrit value g reater than 55% may lead to inaccurate results in coagulation testing. Patients having hematocrit values >55% require a special collection tube for coagulation studies. Please contact the laboratory at [phone] for redraw instructions. RBC Auto (Bld) [#/Vol]Ordere d By: Juli Thomas on 07-09-2024 RBC (Bld) [#/Vol] Erythrocytes [#/volu me] in Blood by Automated count 3.90-5.60 [facility] Serum or plasma albumin/glob ulin mass ratioOrdered By: Juli Thomas on 07-09-2024 Albumin/Globulin [Mass ratio] Serum or plasma albumin/globulin mass ratio [facility] Serum or plasma anion gap de terminationOrdered By: Juli Thomas on 07-09-2024 Anion gap [Moles/Vol] Serum or plasma an ion gap determination 6.0-15.0 [facility] Sodium [Moles/volume] in Ser um or PlasmaOrdered By: Juli Thomas on 07-09-2024 Sodium [Moles/Vol] Sodium [Moles/volume ] in Serum or Plasma 136-145 [facility] Specific gravity Test strip (U) [Rel density]Ordered By: Juli Thomas on 07-09-2024 Specific gravity (U) [Rel density] Specific gravity of Urine by Test strip 1.001-1.03 0 [facility] Troponin I High Sensitivityo n 07-09-2024 Troponin I High Sensitivity 10.7 pg/mL Normal 0.0-20.0 [facility] Comment on above: Result Comment: PERF ORMED BY:[facility] [place], [place] [phone] MEDICAL DIRECTORRHONDA MCLEAN M.D. Performed By: #### C RP, HS TROP, CBC, MG, PT, PTT, CMP ####[facility] [place] [address] [facility] Troponin I.cardiac [Mass/vol ume] in Serum or Plasma by Detection limit <= 0.01 ng/Ordered By: Juli Thomas on 07-09-2024 Troponin I.cardiac DL <= 0.01 ng/mL [Mass/Vol] Troponin I.cardiac [Mass/volume] in Serum or Plasma by Detection limit <= 0.01 ng/ 0.0-20.0 [facility] Urea nitrogen [Mass/volume] in Serum or PlasmaOrdered By: Juli Thomas on 07-09-2024 Urea nitrogen [Mass/Vol] Urea nitrogen [Mass/volume] in Serum or Plasma High 7-25 [facility] Urobilinogen Test strip (U) [Mass/Vol]Ordered By: Juli Thomas on 07-09-2024 Urobilinogen (U) [Mass/Vol] Urobilinogen [Mass/volume] in Urine by Test strip Normal [facility] WBC Auto (Bld) [#/Vol]Ordere d By: Juli Thomas on 07-09-2024 WBC (Bld) [#/Vol] Leukocytes [#/volume ] in Blood by Automated count 4.1-10.5 [facility] X-ray reportOrdered By: Latasha Moe on 07-09-2024 Study report [facility] [place] [address] [place] [address] XRay Report Signed Patient: Taurus Garcia MR#: [id number] : 1945 Acct:[id number] Age/Sex: 78 / M ADM Date: 4 Loc: ER Room: Type: [facility] ER Attending Dr: Copies to: Juli Thomas [...] Aide Moe M.D.07/09/2024 4:34 PM Dictation Location: [place] [address] Transcribed By: [facility] 07/09/24 1634 Dictated By: Aide Moe MD 07/09/24 1632 Signed By: 07/09/24 [facility] Work Phone: XR chest 1V portableon 07-09 XR chest 1V portable Normal [facility] aPTT in Platelet poor plasma by Coagulation assayOrdered By: Juli Thomas on 07-09-2024 aPTT Coag (PPP) [Time] Activated partial thromboplastin time (aPTT) in platelet poor plasma by coagulation a 25.1-36.5 [facility] Comment on above: A hematocrit value g reater than 55% may lead to inaccurate results in coagulation testing. Patients having hematocrit values >55% require a special collection tube for coagulation studies. Please contact the laboratory at [phone] for redraw instructions. pH Test strip (U)Ordered By: Juli Thomas on 07-09-2024 pH (U) pH of Urine by Test strip 5.0-9.0 [facility] Basic Metabolic Panelon 06-21 Anion gap [Moles/Vol] 12.0 mmol/L Normal 6.0-15.0 [facility] Comment on above: Performed By: #### B MP ####[address] [address] [facility] Calcium [Mass/Vol] 8.6 mg/dL Normal 8.6-10.3 [facility] Comment on above: Performed By: #### B MP ####[address] [address] [facility] Chloride [Moles/Vol] 106 mmol/L Normal 98-107 [facility] Comment on above: Performed By: #### B MP ####[address] [address] [facility] CO2 [Moles/Vol] 28.2 mmol/L Normal 21.0-31.0 [facility] Comment on above: Performed By: #### B MP ####[address] [address] [facility] Creatinine [Mass/Vol] 1.07 mg/dL Normal 0.70-1.30 [facility] Comment on above: Performed By: #### B MP ####[address] [address] [facility] Creatinine Clr Calc Pharmacy 75.58 Normal [facility] Comment on above: Result Comment: PERF ORMED BY:[address] [place] [phone] MEDICAL DIRECTORGINA CARDONA M.D. Performed By: #### B MP ####[address] [address] [facility] GFR/1.73 sq M.predicted MDRD (S/P/Bld) [Vol rate/Area] mL/min/{1.73_m2} Normal [facility] Comment on above: Performed By: #### B MP ####[place] [id number] [facility] Glucose [Mass/Vol] 96 mg/dL Normal 70-100 [facility] Comment on above: Result Comment: [facility] Glucose Reference Range is dependent on time and content of last meal. Glucose of more than 200 mg/dL in a nonstressed, ambulatory subject supports the diagnosis of Diabetes Mellitus. ADA recommended reference range Performed By: #### B MP ####[place] [id number] [facility] Potassium [Moles/Vol] 3.2 mmol/L Low 3.5-5.1 [facility] Comment on above: Performed By: #### B MP ####[address] Sodium [Moles/Vol] 143 mmol/L Normal 136-145 [facility] Comment on above: Performed By: #### B MP ####[place] [id number] [facility] Urea nitrogen [Mass/Vol] 21 mg/dL Normal 7-25 [facility] Comment on above: Performed By: #### B MP ####[address] Calcium [Mass/volume] in Ser um or PlasmaOrdered By: Silvestre Grover on 07-03-2024 Calcium [Mass/Vol] Calcium [Mass/volume ] in Serum or Plasma 8.6-10.3 [facility] Carbon dioxide, total [Moles /volume] in Serum or PlasmaOrdered By: Silvestre Grover on 07-03-2024 CO2 [Moles/Vol] Carbon dioxide, tota l [Moles/volume] in Serum or Plasma 21.0-31.0 [facility] Chloride [Moles/volume] in S [place] or PlasmaOrdered By: Silvestre Grover on 07-03-2024 Chloride [Moles/Vol] Chloride [Moles/vol ume] in Serum or Plasma 98-107 [facility] Creatinine [Mass/volume] in Serum or PlasmaOrdered By: Silvestre Grover on 07-03-2024 Creatinine [Mass/Vol] Creatinine [Mass/v olume] in Serum or Plasma 0.70-1.30 [facility] Glucose [Mass/volume] in Ser um or PlasmaOrdered By: Silvestre Grover on 07-03-2024 Glucose [Mass/Vol] Glucose [Mass/volume ] in Serum or Plasma 70-100 [facility] Comment on above: ADA recommended refe rence rangeRandom Glucose Reference Range is dependent on time and content of last meal. Glucose of more than 200 mg/dL in a nonstressed, ambulatory subject supports the diagnosis of Diabetes Mellitus. No Panel InformationOrdered By: Silvestre Grover on 07-03-2024 Estimated GFR (CKD-EPI) > 60.0 mL/Min [facility] Creatinine Clearance (Chem 75.58 [facility] > 60.0 mL/Min [facility] 75.58 [facility] Potassium [Moles/volume] in Serum or PlasmaOrdered By: Silvestre Grover on 07-03-2024 Potassium [Moles/Vol] Potassium [Moles/v olume] in Serum or Plasma Low 3.5-5.1 [facility] Serum or plasma anion gap de terminationOrdered By: Silvestre Grover on 07-03-2024 Anion gap [Moles/Vol] Serum or plasma an ion gap determination 6.0-15.0 [facility] Sodium [Moles/volume] in Ser um or PlasmaOrdered By: Silvestre Grover on 07-03-2024 Sodium [Moles/Vol] Sodium [Moles/volume ] in Serum or Plasma 136-145 [facility] Urea nitrogen [Mass/volume] in Serum or PlasmaOrdered By: Silvestre Grover on 07-03-2024 Urea nitrogen [Mass/Vol] Urea nitrogen [Mass/volume] in Serum or Plasma 7-25 [facility] Basic Metabolic Panelon 06-21 Anion gap [Moles/Vol] 12.2 mmol/L Normal 6.0-15.0 [facility] Comment on above: Performed By: #### B MP, DIFF CBC ####[facility] [place] [id number] [facility] Calcium [Mass/Vol] 8.4 mg/dL Low 8.6-10.3 [facility] Comment on above: Performed By: #### B MP, DIFF CBC ####[place] [address] [place] [address] [place] Chloride [Moles/Vol] 106 mmol/L Normal 98-107 [facility] Comment on above: Performed By: #### B MP, DIFF CBC ####[address] [address] [place] CO2 [Moles/Vol] 29.1 mmol/L Normal 21.0-31.0 [facility] Comment on above: Performed By: #### B MP, DIFF CBC ####[address] [address] [place] Creatinine [Mass/Vol] 1.20 mg/dL Normal 0.70-1.30 [facility] Comment on above: Performed By: #### B MP, DIFF CBC ####[address] [address] [place] Creatinine Clr Calc Pharmacy 67.36 Normal [facility] Comment on above: Result Comment: PERF ORMED BY:[address] [place] [phone] MEDICAL DIRECTORGINA CARDONA M.D. Performed By: #### B MP, DIFF CBC ####[address] [address] [place] GFR/1.73 sq M.predicted MDRD (S/P/Bld) [Vol rate/Area] mL/min/{1.73_m2} Normal [facility] Comment on above: Performed By: #### B MP, DIFF CBC ####[address] [address] [place] Glucose [Mass/Vol] 91 mg/dL Normal 70-100 [facility] Comment on above: Result Comment: [place] Glucose Reference Range is dependent on time and content of last meal. Glucose of more than 200 mg/dL in a nonstressed, ambulatory subject supports the diagnosis of Diabetes Mellitus. ADA recommended reference range Performed By: #### B MP, DIFF CBC ####[address] [address] [place] Potassium [Moles/Vol] 3.3 mmol/L Low 3.5-5.1 [facility] Comment on above: Performed By: #### B MP, DIFF CBC ####[address] Sodium [Moles/Vol] 144 mmol/L Normal 136-145 [facility] Comment on above: Performed By: #### B MP, DIFF CBC ####[address] Urea nitrogen [Mass/Vol] 22 mg/dL Normal 7-25 [facility] Comment on above: Performed By: #### B MP, DIFF CBC ####[address] Basophils Auto (Bld) [#/Vol] Ordered By: Silvestre Grover on 07-02-2024 Basophils (Bld) [#/Vol] Automated basophil count [facility] Basophils/100 WBC Auto (Bld) Ordered By: Silvestre Grover on 07-02-2024 Basophils/100 WBC (Bld) Automated basophil % [facility] Diff and CBCon 07-02-2024 Erythrocyte distribution width (RBC) [Ratio] 14.8 % Normal 12.0-14.8 [facility] Comment on above: Performed By: #### B MP, DIFF CBC ####[address] Hematocrit (Bld) [Volume fraction] 36.3 % Low 38.8-50.0 [facility] Comment on above: Performed By: #### B MP, DIFF CBC ####[address] Hemoglobin (Bld) [Mass/Vol] 12.4 g/dL Low 13.0-17.0 [facility] Comment on above: Performed By: #### B MP, DIFF CBC ####[address] Lymphocytes/100 WBC (Bld) 15 % Low 18-42 [facility] Comment on above: Performed By: #### B MP, DIFF CBC ####[place] [id number] [facility] MCH (RBC) [Entitic mass] 31.4 pg Normal 27.5-35.2 [facility] Comment on above: Performed By: #### B MP, DIFF CBC ####[place] [id number] [facility] MCV (RBC) [Entitic vol] 91.8 fL Normal 83.5-101 [facility] Comment on above: Performed By: #### B MP, DIFF CBC ####[address] Mean Corpuscular HGB Conc 34.2 g/dL Normal 32.5-35.6 [facility] Comment on above: Performed By: #### B MP, DIFF CBC ####[address] Monocytes/100 WBC (Bld) 8 % Normal 2-11 [facility] Comment on above: Performed By: #### B MP, DIFF CBC ####[address] Myelocytes 1 % High 0-0 [facility] Comment on above: Performed By: #### B MP, DIFF CBC ####[place] [id number] [facility] Platelet Estimate Normal Normal Normal [facility] Comment on above: Performed By: #### B MP, DIFF CBC ####[place] [id number] [facility] Platelet mean volume (Bld) [Entitic vol] 8.8 fL Normal 6.6-10.1 [facility] Comment on above: Performed By: #### B MP, DIFF CBC ####[place] [id number] [facility] Platelet Morphology Normal Normal Normal [facility] Comment on above: Result Comment: PERF ORMED BY:[address] [place], [place] [phone] MEDICAL DIRECTORGINA CARDONA M.D. Performed By: #### B MP, DIFF CBC ####[place] [address] [place] [address] [place] Platelets (Bld) [#/Vol] 195 10*3/uL Normal 150-450 [facility] Comment on above: Performed By: #### B MP, DIFF CBC ####[place] [address] [place] [address] [facility] RBC (Bld) [#/Vol] 3.95 10*6/uL Normal 3.90-5.60 [facility] Comment on above: Performed By: #### B MP, DIFF CBC ####[place] [id number] [place] [id number] [facility] RBC morphology finding Nom (Bld) Normal Normal Normal [facility] Comment on above: Performed By: #### B MP, DIFF CBC ####[place] [id number] [place] [id number] [facility] Segmented neutrophils/100 WBC (Bld) 76 % High 50-70 [facility] Comment on above: Performed By: #### B MP, DIFF CBC ####[address] [address] [facility] WBC (Bld) [#/Vol] 9.1 10*3/uL Normal 4.1-10.5 [facility] Comment on above: Performed By: #### B MP, DIFF CBC ####[place] [id number] [facility] Eosinophils Auto (Bld) [#/Vo l]Ordered By: Silvestre Grover on 07-02-2024 Eosinophils (Bld) [#/Vol] Automated eosinophil count [facility] Eosinophils/100 WBC Auto (Bl d)Ordered By: Silvestre Grover on 07-02-2024 Eosinophils/100 WBC (Bld) Automated eosinophil % [facility] Erythrocyte distribution wid th Auto (RBC) [Ratio]Ordered By: Silvestre Grover on 07-02-2024 Erythrocyte distribution width (RBC) [Ratio] Erythrocyte distribution width [Ratio] by Automated count 12.0-14.8 [facility] Erythrocyte morphology findi ng [Identifier] in BloodOrdered By: Silvestre Grover on 07-02-2024 RBC morphology finding Nom (Bld) RBC morphology Normal [facility] Hematocrit Auto (Bld) [Volum e fraction]Ordered By: Silvestre Grover on 07-02-2024 Hematocrit (Bld) [Volume fraction] Hematocrit [Volume Fraction] of Blood by Automated count Low 38.8-50.0 [facility] Hemoglobin [Mass/volume] in BloodOrdered By: Silvestre Grover on 07-02-2024 Hemoglobin (Bld) [Mass/Vol] Hemoglobin [Mass/volume] in Blood Low 13.0-17.0 [facility] Leukocytes [#/volume] correc blessing for nucleated erythrocytes in Blood by Automated counOrdered By: Silvestre Grover on 07-02-2024 WBC corrected for nucl RBC Auto (Bld) [#/Vol] Leukocytes [#/volume] corrected for nucleated erythrocytes in Blood by Automated coun 4.1-10.5 [facility] Lymphocytes Auto (Bld) [#/Vo l]Ordered By: Silvestre Grover on 07-02-2024 Lymphocytes (Bld) [#/Vol] Lymphocytes [#/volume] in Blood by Automated count [facility] Lymphocytes/100 WBC Auto (Bl d)Ordered By: Silvestre Grover on 07-02-2024 Lymphocytes/100 WBC (Bld) Lymphocytes/100 leukocytes in Blood by Automated count [facility] Lymphocytes/100 WBC Manual c nt (Bld)Ordered By: Silvestre Grover on 07-02-2024 Lymphocytes/100 WBC (Bld) Lymphocytes/100 leukocytes in Blood by Manual count Low 18-42 [facility] MCH Auto (RBC) [Entitic mass ]Ordered By: Silvestre Grover on 07-02-2024 MCH (RBC) [Entitic mass] MCH [Entitic mass] by Automated count 27.5-35.2 [facility] MCHC Auto (RBC) [Mass/Vol]Or dered By: Silvestre Grover on 07-02-2024 MCHC (RBC) [Mass/Vol] MCHC [Mass/volume] by Automated count 32.5-35.6 [facility] MCV Auto (RBC) [Entitic vol] Ordered By: Silvestre Grover on 07-02-2024 MCV (RBC) [Entitic vol] MCV [Entitic volume] by Automated count 83.5-101 [facility] Monocytes Auto (Bld) [#/Vol] Ordered By: Silvestre Grover on 07-02-2024 Monocytes (Bld) [#/Vol] Automated blood monocyte count [facility] Monocytes/100 WBC Auto (Bld) Ordered By: Silvestre Grover on 07-02-2024 Monocytes/100 WBC (Bld) Automated monocyte % [facility] Monocytes/100 WBC Manual cnt (Bld)Ordered By: Silvestre Grover on 07-02-2024 Monocytes/100 WBC (Bld) Monocytes/100 leukocytes in Blood by Manual count 2 [facility] Myelocytes/100 WBC Manual cn t (Bld)Ordered By: Silvestre Grover on 07-02-2024 Myelocytes/100 WBC (Bld) Myelocytes/100 leukocytes in Blood by Manual count High 0-0 [facility] Neutrophils Auto (Bld) [#/Vo l]Ordered By: Silvestre Grover on 07-02-2024 Neutrophils (Bld) [#/Vol] Neutrophils [#/volume] in Blood by Automated count [facility] Neutrophils/100 WBC Auto (Bl d)Ordered By: Silvestre Grover on 07-02-2024 Neutrophils/100 WBC (Bld) Automated neutrophil % [facility] Nucleated erythrocytes [Pres ence] in Blood by Automated countOrdered By: Silvestre Grover on 07-02-2024 Nucleated RBC Auto Ql (Bld) Nucleated erythrocytes [Presence] in Blood by Automated count [facility] Platelet adequacy [Presence] in Blood by Light microscopyOrdered By: Silvestre Grover on 07-02-2024 Platelets LM Ql (Bld) Platelet adequacy [Presence] in Blood by Light microscopy Normal [facility] Platelet mean volume Auto (B ld) [Entitic vol]Ordered By: Silvestre Grover on 07-02-2024 Platelet mean volume (Bld) [Entitic vol] Platelet mean volume [Entitic volume] in Blood by Automated count 6.6-10.1 [facility] Platelet morphology finding [Identifier] in BloodOrdered By: Silvestre Grover on 07-02-2024 Platelet morphology finding Nom (Bld) Platelet morphology finding [Identifier] in Blood Normal [facility] Platelets Auto (Bld) [#/Vol] Ordered By: Silvestre Grover on 07-02-2024 Platelets (Bld) [#/Vol] Platelets [#/volume] in Blood by Automated count 150-450 [facility] RBC Auto (Bld) [#/Vol]Ordere d By: Silvestre Grover on 07-02-2024 RBC (Bld) [#/Vol] Erythrocytes [#/volu me] in Blood by Automated count 3.90-5.60 [facility] Segmented neutrophils/100 WB C Manual cnt (Bld)Ordered By: Silvestre Grover on 07-02-2024 Segmented neutrophils/100 WBC (Bld) Manual blood segmented neutrophils/100 leukocytes High 50-70 [facility] WBC Auto (Bld) [#/Vol]Ordere d By: Silvestre Grover on 07-02-2024 WBC (Bld) [#/Vol] Leukocytes [#/volume ] in Blood by Automated count 4.1-10.5 [facility] Basic Metabolic Panelon 11 Anion gap [Moles/Vol] 10.3 mmol/L Normal 6.0-15.0 [facility] Comment on above: Performed By: #### B MP ####[place] [id number] [facility] Calcium [Mass/Vol] 8.6 mg/dL Normal 8.6-10.3 [facility] Comment on above: Performed By: #### B MP ####[address] [address] [facility] Chloride [Moles/Vol] 102 mmol/L Normal 98-107 [facility] Comment on above: Performed By: #### B MP ####[address] [address] [facility] CO2 [Moles/Vol] 32.9 mmol/L High 21.0-31.0 [facility] Comment on above: Performed By: #### B MP ####[place] [id number] [facility] Creatinine [Mass/Vol] 1.26 mg/dL Normal 0.70-1.30 [facility] Comment on above: Performed By: #### B MP ####[address] [address] [facility] Creatinine Clr Calc Pharmacy 64.44 Normal [facility] Comment on above: Result Comment: PERF ORMED BY:[place] [address] [place], [place] [phone] [facility]ICAL HUY CARDONA M.D. Performed By: #### B MP ####[place] [id number] [facility] GFR/1.73 sq M.predicted MDRD (S/P/Bld) [Vol rate/Area] 57.657 mL/min/{1.73_m2} Normal [facility] Comment on above: Performed By: #### B MP ####[place] [id number] [facility] Glucose [Mass/Vol] 97 mg/dL Normal 70-100 [facility] Comment on above: Result Comment: [place] Glucose Reference Range is dependent on time and content of last meal. Glucose of more than 200 mg/dL in a nonstressed, ambulatory subject supports the diagnosis of Diabetes Mellitus. ADA recommended reference range Performed By: #### B MP ####[place] [id number] [facility] Potassium [Moles/Vol] 3.2 mmol/L Low 3.5-5.1 [facility] Comment on above: Performed By: #### B MP ####[place] [id number] [facility] Sodium [Moles/Vol] 142 mmol/L Normal 136-145 [facility] Comment on above: Performed By: #### B MP ####[place] [id number] [facility] Urea nitrogen [Mass/Vol] 30 mg/dL High 7-25 [facility] Comment on above: Performed By: #### B MP ####[place] [id number] [facility] Basic Metabolic Panelon 11-0 Anion gap [Moles/Vol] Not performed Normal 6.0-15.0 [facility] Comment on above: Performed By: #### B MP ####[address] [address] [facility] Calcium [Mass/Vol] 8.9 mg/dL Normal 8.6-10.3 [facility] Comment on above: Performed By: #### B MP ####[place] [id number] [facility] Chloride [Moles/Vol] 103 mmol/L Normal 98-107 [facility] Comment on above: Performed By: #### B MP ####[address] [address] [facility] CO2 [Moles/Vol] 28.9 mmol/L Normal 21.0-31.0 [facility] Comment on above: Performed By: #### B MP ####[place] [id number] [facility] Creatinine [Mass/Vol] 1.27 mg/dL Normal 0.70-1.30 [facility] Comment on above: Performed By: #### B MP ####[place] [id number] [facility] Creatinine Clr Calc Pharmacy 63.75 Normal [facility] Comment on above: Result Comment: PERF ORMED BY:[address] [place], [place] [phone] MEDICAL HUY CARDONA M.D. Performed By: #### B MP ####[place] [id number] [facility] GFR/1.73 sq M.predicted MDRD (S/P/Bld) [Vol rate/Area] 57.112 mL/min/{1.73_m2} Normal [facility] Comment on above: Performed By: #### B MP ####[place] [id number] [facility] Glucose [Mass/Vol] 122 mg/dL High 70-100 [facility] Comment on above: Result Comment: [facility] Glucose Reference Range is dependent on time and content of last meal. Glucose of more than 200 mg/dL in a nonstressed, ambulatory subject supports the diagnosis of Diabetes Mellitus. ADA recommended reference range Performed By: #### B MP ####[address] [address] [facility] Potassium Normal 3.5-5.1 [facility] Comment on above: Result Comment: Spec imen hemolyzed, redraw requested Performed By: #### B MP ####[place] [id number] [facility] Sodium [Moles/Vol] 140 mmol/L Normal 136-145 [facility] Comment on above: Performed By: #### B MP ####[place] [id number] [facility] Urea nitrogen [Mass/Vol] 38 mg/dL High 7-25 [facility] Comment on above: Performed By: #### B MP ####[address] [address] [facility] Redraw Potassiumon 4 Potassium [Moles/Vol] 3.5 mmol/L Normal 3.5-5.1 [facility] Comment on above: Result Comment: PERF ORMED BY:[address] [place], [place] [phone] MEDICAL HUY CARDONA M.D. Performed By: #### R ARJUN K ####[place] [id number] [facility] Alanine aminotransferase [En zymatic activity/volume] in Serum or PlasmaOrdered By: Antonia Grier on 06-23-2024 ALT [Catalytic activity/Vol] Alanine aminotransferase [Enzymatic activity/volume] in Serum or Plasma [facility] Albumin [Mass/volume] in Ser um or Plasma by Bromocresol green (BCG) dye binding methoOrdered By: Antonia Grier on 06-23-2024 Albumin BCG dye [Mass/Vol] Albumin [Mass/volume] in Serum or Plasma by Bromocresol green (BCG) dye binding metho 3.5-5.7 [facility] Alkaline phosphatase [Enzyma tic activity/volume] in Serum or PlasmaOrdered By: Antonia Grier on 06-23-2024 ALP [Catalytic activity/Vol] Alkaline phosphatase [Enzymatic activity/volume] in Serum or Plasma 34-104 [facility] Aspartate aminotransferase [ Enzymatic activity/volume] in Serum or PlasmaOrdered By: Antonia Grier on 06-23-2024 AST [Catalytic activity/Vol] Aspartate aminotransferase [Enzymatic activity/volume] in Serum or Plasma 13-39 [facility] Bilirubin.total [Mass/volume ] in Serum or PlasmaOrdered By: Antonia Grier on 06-23-2024 Bilirubin [Mass/Vol] Bilirubin.total [Mass/volume] in Serum or Plasma 0.3-1.0 [facility] Complete Blood Count Auto Di ffon 06-23-2024 Basophils (Bld) [#/Vol] 0.0 10*3/uL Normal 0.0-0.2 [facility] Comment on above: Result Comment: PERF ORMED BY:[address] [place], [place] [phone] MEDICAL DIRECTORGINA CARDONA M.D. Performed By: #### C MP, PAB, CBC ####[place] [id number] [facility] Basophils/100 WBC (Bld) 0.2 % Normal . [facility] Comment on above: Performed By: #### C MP, PAB, CBC ####[address] [address] [facility] Eosinophils (Bld) [#/Vol] 0.0 10*3/uL Normal 0.0-0.45 [facility] Comment on above: Performed By: #### C MP, PAB, CBC ####[address] [address] [facility] Eosinophils/100 WBC (Bld) 0.1 % Normal . [facility] Comment on above: Performed By: #### C MP, PAB, CBC ####[place] [id number] [facility] Erythrocyte distribution width (RBC) [Ratio] 14.7 % Normal 12.0-14.8 [facility] Comment on above: Performed By: #### C MP, PAB, CBC ####[address] Hematocrit (Bld) [Volume fraction] 40.9 % Normal 38.8-50.0 [facility] Comment on above: Performed By: #### C MP, PAB, CBC ####[address] Hemoglobin (Bld) [Mass/Vol] 13.6 g/dL Normal 13.0-17.0 [facility] Comment on above: Performed By: #### C MP, PAB, CBC ####[address] Lymphocytes (Bld) [#/Vol] 1.2 10*3/uL Normal 1.00-4.8 [facility] Comment on above: Performed By: #### C MP, PAB, CBC ####[address] Lymphocytes/100 WBC (Bld) 10.7 % Normal . [facility] Comment on above: Performed By: #### C MP, PAB, CBC ####[address] MCH (RBC) [Entitic mass] 30.8 pg Normal 27.5-35.2 [facility] Comment on above: Performed By: #### C MP, PAB, CBC ####[address] MCV (RBC) [Entitic vol] 92.4 fL Normal 83.5-101 [facility] Comment on above: Performed By: #### C MP, PAB, CBC ####[address] Mean Corpuscular HGB Conc 33.3 g/dL Normal 32.5-35.6 [facility] Comment on above: Performed By: #### C MP, PAB, CBC ####[address] Monocytes (Bld) [#/Vol] 1.0 10*3/uL High 0.0-0.8 [facility] Comment on above: Performed By: #### C MP, PAB, CBC ####[address] Monocytes/100 WBC (Bld) 8.7 % Normal . [facility] Comment on above: Performed By: #### C MP, PAB, CBC ####[address] Neutrophils (Bld) [#/Vol] 9.1 10*3/uL High 1.8-7.7 [facility] Comment on above: Performed By: #### C MP, PAB, CBC ####[address] Neutrophils/100 WBC (Bld) 80.3 % Normal . [facility] Comment on above: Performed By: #### C MP, PAB, CBC ####[address] NRBC% 0.1 /100{WBC} Normal 0-0.5 [facility] Comment on above: Performed By: #### C MP, PAB, CBC ####[address] Platelet mean volume (Bld) [Entitic vol] 8.6 fL Normal 6.6-10.1 [facility] Comment on above: Performed By: #### C MP, PAB, CBC ####[address] Platelets (Bld) [#/Vol] 195 10*3/uL Normal 150-450 [facility] Comment on above: Performed By: #### C MP, PAB, CBC ####[address] RBC (Bld) [#/Vol] 4.43 10*6/uL Normal 3.90-5.60 [facility] Comment on above: Performed By: #### C MP, PAB, CBC ####[address] [address] [place] WBC (Bld) [#/Vol] 11.3 10*3/uL High 4.1-10.5 [facility] Comment on above: Performed By: #### C MP, PAB, CBC ####[address] Comprehensive Metabolic Pane radha 06-23-2024 Albumin [Mass/Vol] 3.5 g/dL Normal 3.5-5.7 [facility] Comment on above: Performed By: #### C MP, PAB, CBC ####[address] Albumin/Globulin [Mass ratio] 1.6 {ratio} Normal [facility] Comment on above: Performed By: #### C MP, PAB, CBC ####[address] ALP [Catalytic activity/Vol] 50 U/L Normal 34-104 [facility] Comment on above: Performed By: #### C MP, PAB, CBC ####[address] ALT [Catalytic activity/Vol] 16 U/L Normal 7-52 [facility] Comment on above: Performed By: #### C MP, PAB, CBC ####[address] Anion gap [Moles/Vol] 11.3 mmol/L Normal 6.0-15.0 [facility] Comment on above: Performed By: #### C MP, PAB, CBC ####[address] AST [Catalytic activity/Vol] 18 U/L Normal 13-39 [facility] Comment on above: Performed By: #### C MP, PAB, CBC ####[address] Bilirubin [Mass/Vol] 0.7 mg/dL Normal 0.3-1.0 [facility] Comment on above: Performed By: #### C MP, PAB, CBC ####[place] [id number] [place] [id number] [facility] Calcium [Mass/Vol] 9.1 mg/dL Normal 8.6-10.3 [facility] Comment on above: Performed By: #### C SUZANNE PAB, CBC ####[place] [id number] [facility] Chloride [Moles/Vol] 100 mmol/L Normal 98-107 [facility] Comment on above: Performed By: #### C SUZANNE PAB, CBC ####[address] CO2 [Moles/Vol] 33.6 mmol/L High 21.0-31.0 [facility] Comment on above: Performed By: #### C SUZANNE PAB, CBC ####[address] Creatinine [Mass/Vol] 1.62 mg/dL High 0.70-1.30 [facility] Comment on above: Performed By: #### C SUZANNE PAB, CBC ####[address] Creatinine Clr Calc Pharmacy 50.98 Normal [facility] Comment on above: Performed By: #### C MADELINE PALACIOS, CBC ####[place] [id number] [facility] GFR/1.73 sq M.predicted MDRD (S/P/Bld) [Vol rate/Area] 42.646 mL/min/{1.73_m2} Normal [facility] Comment on above: Performed By: #### C SUZANNE PAB, CBC ####[address] Globulin (S) [Mass/Vol] 2.2 g/dL Normal [facility] Comment on above: Performed By: #### C SUZANNE PAB, CBC ####[place] [id number] [facility] Glucose [Mass/Vol] 119 mg/dL High 70-100 [facility] Comment on above: Result Comment: [place] om Glucose Reference Range is dependent on time and content of last meal. Glucose of more than 200 mg/dL in a nonstressed, ambulatory subject supports the diagnosis of Diabetes Mellitus. ADA recommended reference range Performed By: #### C MP, PAB, CBC ####[place] [id number] [facility] Potassium [Moles/Vol] 3.9 mmol/L Normal 3.5-5.1 [facility] Comment on above: Performed By: #### C MP, PAB, CBC ####[place] [id number] [facility] Protein [Mass/Vol] 5.7 g/dL Low 6.4-8.9 [facility] Comment on above: Performed By: #### C SUZANNE PAB, CBC ####[place] [id number] [facility] Sodium [Moles/Vol] 141 mmol/L Normal 136-145 [facility] Comment on above: Performed By: #### C SUZANNE, PAB, CBC ####[place] [id number] [facility] Urea nitrogen [Mass/Vol] 44 mg/dL High 7-25 [facility] Comment on above: Performed By: #### C SUZANNE PAB, CBC ####[place] [id number] [facility] Globulin Calc (S) [Mass/Vol] Ordered By: Antonia Grier on 06-23-2024 Globulin (S) [Mass/Vol] Serum globulin measurement by calculation (mass/volume) [facility] Prealbuminon 06-23-2024 Prealbumin [Mass/Vol] 32.1 mg/dL Normal 17.0-34.0 [facility] Comment on above: Result Comment: PERF ORMED BY:[address] [place], [place] [phone] MEDICAL DIRECTORGINA CARDONA M.D. Performed By: #### C MP, PAB, CBC ####[place] [id number] [facility] Prealbumin [Mass/volume] in Serum or PlasmaOrdered By: Antonia Grier on 06-23-2024 Prealbumin [Mass/Vol] Prealbumin [Mass/v olume] in Serum or Plasma 17.0-34.0 [facility] Protein [Mass/volume] in Ser um or PlasmaOrdered By: Atnonia Grier on 06-23-2024 Protein [Mass/Vol] Protein [Mass/volume ] in Serum or Plasma Low 6.4-8.9 [facility] Serum or plasma albumin/glob ulin mass ratioOrdered By: Antonia Grier on 06-23-2024 Albumin/Globulin [Mass ratio] Serum or plasma albumin/globulin mass ratio [facility] Automated basophil %Ordered By: Mateo Horne on 06-22-2024 Basophils/100 WBC (Bld) 0.1 % Normal . [facility] Comment on above: Performed By: #### M G, CBC, BMP ####[place] [id number] Automated basophil countOrde red By: Mateo Horne on 06-22-2024 Basophils (Bld) [#/Vol] 0.0 10*3/uL Normal 0.0-0.2 [facility] Comment on above: Result Comment: PERF ORMED BY:[address] [place], [place] [phone] MEDICAL DIRECTORGINA CARDONA M.D. Performed By: #### M G, CBC, BMP ####[place] [id number] [facility] Automated blood monocyte cou ntOrdered By: Mateo Horne on 06-22-2024 Monocytes (Bld) [#/Vol] 1.1 10*3/uL High 0.0-0.8 [facility] Comment on above: Performed By: #### M G, CBC, BMP ####[address] Automated eosinophil %Ordere d By: Mateo Horne on 06-22-2024 Eosinophils/100 WBC (Bld) 0.2 % Normal . [facility] Comment on above: Performed By: #### M G, CBC, BMP ####[address] Automated eosinophil countOr dered By: Mateo Horne on 06-22-2024 Eosinophils (Bld) [#/Vol] 0.0 10*3/uL Normal 0.0-0.45 [facility] Comment on above: Performed By: #### M G, CBC, BMP ####[address] Automated monocyte %Ordered By: Mateo Horne on 06-22-2024 Monocytes/100 WBC (Bld) 9.8 % Normal . [facility] Comment on above: Performed By: #### M G, CBC, BMP ####[address] Automated neutrophil %Ordere d By: Mateo Horne on 06-22-2024 Neutrophils/100 WBC (Bld) 77.3 % Normal . [facility] Comment on above: Performed By: #### M G, CBC, BMP ####[address] Basic Metabolic Panelon 11 Creatinine Clr Calc Pharmacy 47.41 Normal [facility] Comment on above: Performed By: #### M G, CBC, BMP ####[address] GFR/1.73 sq M.predicted MDRD (S/P/Bld) [Vol rate/Area] 39.967 mL/min/{1.73_m2} Normal [facility] Comment on above: Performed By: #### M G, CBC, BMP ####[address] Basophils Auto (Bld) [#/Vol] Ordered By: Mateo Horne on 06-22-2024 Basophils (Bld) [#/Vol] Automated basophil count 0.0-0.2 [facility] Basophils/100 WBC Auto (Bld) Ordered By: Mateo Horne on 06-22-2024 Basophils/100 WBC (Bld) Automated basophil % . [facility] Calcium [Mass/volume] in Ser um or PlasmaOrdered By: Mateo Horne on 06-22-2024 Calcium [Mass/Vol] 8.9 mg/dL Normal 8.6-10.3 [facility] Comment on above: Performed By: #### M G, CBC, BMP ####[facility] [address] [place] [address] [facility] Calcium [Mass/Vol] Calcium [Mass/volume ] in Serum or Plasma 8.6-10.3 [facility] Carbon dioxide, total [Moles /volume] in Serum or PlasmaOrdered By: Mateo Horne on 06-22-2024 CO2 [Moles/Vol] 32.8 mmol/L High 21.0-31.0 [facility] Comment on above: Performed By: #### M G, CBC, BMP ####[address] [address] [facility] CO2 [Moles/Vol] Carbon dioxide, tota l [Moles/volume] in Serum or Plasma High 21.0-31.0 [facility] Chloride [Moles/volume] in [place] or PlasmaOrdered By: Mateo Horne on 06-22-2024 Chloride [Moles/Vol] 98 mmol/L Normal 98-107 [facility] Comment on above: Performed By: #### M G, CBC, BMP ####[place] [id number] [place] [address] [facility] Chloride [Moles/Vol] Chloride [Moles/vol ume] in Serum or Plasma 98-107 [facility] Complete Blood Count Auto Di ffon 06-22-2024 Mean Corpuscular HGB Conc 33.6 g/dL Normal 32.5-35.6 [facility] Comment on above: Performed By: #### M G, CBC, BMP ####[facility] [id number] [place] [address] [place] NRBC% 0.1 /100{WBC} Normal 0-0.5 [facility] Comment on above: Performed By: #### M G, CBC, BMP ####[facility] [address] Creatinine [Mass/volume] in Serum or PlasmaOrdered By: Mateo Horne on 06-22-2024 Creatinine [Mass/Vol] 1.71 mg/dL High 0.70-1.30 [facility] Comment on above: Performed By: #### M G, CBC, BMP ####[facility] [address] [place] [id number] [facility] Creatinine [Mass/Vol] Creatinine [Mass/v olume] in Serum or Plasma High 0.70-1.30 [facility] Eosinophils Auto (Bld) [#/Vo l]Ordered By: Mateo Horne on 06-22-2024 Eosinophils (Bld) [#/Vol] Automated eosinophil count 0.0-0.45 [facility] Eosinophils/100 WBC Auto (Bl d)Ordered By: Mateo Horne on 06-22-2024 Eosinophils/100 WBC (Bld) Automated eosinophil % . [facility] Erythrocyte distribution wid th Auto (RBC) [Ratio]Ordered By: Mateo Horne on 06-22-2024 Erythrocyte distribution width (RBC) [Ratio] Erythrocyte distribution width [Ratio] by Automated count 12.0-14.8 [facility] Erythrocyte distribution wid th [Ratio] by Automated countOrdered By: Mateo Horne on 06-22-2024 Erythrocyte distribution width (RBC) [Ratio] 14.8 % Normal 12.0-14.8 [facility] Comment on above: Performed By: #### M G, CBC, BMP ####[facility] [id number] Erythrocytes [#/volume] in B lood by Automated countOrdered By: Mateo Horne on 06-22-2024 RBC (Bld) [#/Vol] 4.40 10*6/uL Normal 3.90-5.60 [facility] Comment on above: Performed By: #### M G, CBC, BMP ####[facility] [place] [id number] [facility] Glucose [Mass/volume] in Ser um or PlasmaOrdered By: Mateo Horne on 06-22-2024 Glucose [Mass/Vol] 116 mg/dL High 70-100 [facility] Comment on above: ADA recommended refe rence rangeRandom Glucose Reference Range is dependent on time and content of last meal. Glucose of more than 200 mg/dL in a nonstressed, ambulatory subject supports the diagnosis of Diabetes Mellitus. Result Comment: [place] Glucose Reference Range is dependent on time and content of last meal. Glucose of more than 200 mg/dL in a nonstressed, ambulatory subject supports the diagnosis of Diabetes Mellitus. ADA recommended reference range Performed By: #### M G, CBC, BMP ####[facility] [place] [id number] [facility] Glucose [Mass/Vol] Glucose [Mass/volume ] in Serum or Plasma High 70-100 [facility] Comment on above: ADA recommended refe rence rangeRandom Glucose Reference Range is dependent on time and content of last meal. Glucose of more than 200 mg/dL in a nonstressed, ambulatory subject supports the diagnosis of Diabetes Mellitus. Hematocrit Auto (Bld) [Volum e fraction]Ordered By: Mateo Horne on 06-22-2024 Hematocrit (Bld) [Volume fraction] Hematocrit [Volume Fraction] of Blood by Automated count 38.8-50.0 [facility] Hematocrit [Volume Fraction] of Blood by Automated countOrdered By: Mateo Horne on 06-22-2024 Hematocrit (Bld) [Volume fraction] 40.5 % Normal 38.8-50.0 [facility] Comment on above: Performed By: #### M G, CBC, BMP ####[facility] [place] [id number] [facility] Hemoglobin [Mass/volume] in BloodOrdered By: Mateo Horne on 06-22-2024 Hemoglobin (Bld) [Mass/Vol] 13.6 g/dL Normal 13.0-17.0 [facility] Comment on above: Performed By: #### M G, CBC, BMP ####[place] [id number] [address] Hemoglobin (Bld) [Mass/Vol] Hemoglobin [Mass/volume] in Blood 13.0-17.0 [facility] Leukocytes [#/volume] correc blessing for nucleated erythrocytes in Blood by Automated counOrdered By: Mateo Horne on 06-22-2024 WBC corrected for nucl RBC Auto (Bld) [#/Vol] 11.1 10*3/uL High 4.1-10.5 [facility] WBC corrected for nucl RBC Auto (Bld) [#/Vol] Leukocytes [#/volume] corrected for nucleated erythrocytes in Blood by Automated coun High 4.1-10.5 [facility] Leukocytes [#/volume] in Blo od by Automated countOrdered By: Mateo Horne on 06-22-2024 WBC (Bld) [#/Vol] 11.1 10*3/uL High 4.1-10.5 [facility] Comment on above: Performed By: #### M G, CBC, BMP ####[address] Lymphocytes Auto (Bld) [#/Vo l]Ordered By: Mateo Horne on 06-22-2024 Lymphocytes (Bld) [#/Vol] Lymphocytes [#/volume] in Blood by Automated count 1.00-4.8 [facility] Lymphocytes [#/volume] in Bl ood by Automated countOrdered By: Mateo Horne on 06-22-2024 Lymphocytes (Bld) [#/Vol] 1.4 10*3/uL Normal 1.00-4.8 [facility] Comment on above: Performed By: #### M G, CBC, BMP ####[facility] Lymphocytes/100 WBC Auto (Bl d)Ordered By: Mateo Horne on 06-22-2024 Lymphocytes/100 WBC (Bld) Lymphocytes/100 leukocytes in Blood by Automated count . [facility] Lymphocytes/100 leukocytes i n Blood by Automated countOrdered By: Mateo Horne on 06-22-2024 Lymphocytes/100 WBC (Bld) 12.6 % Normal . [facility] Comment on above: Performed By: #### M G, CBC, BMP ####[facility] [id number] MCH Auto (RBC) [Entitic mass ]Ordered By: Mateo Horne on 06-22-2024 MCH (RBC) [Entitic mass] MCH [Entitic mass] by Automated count 27.5-35.2 [facility] MCH [Entitic mass] by Automa blessing countOrdered By: Mateo Horne on 06-22-2024 MCH (RBC) [Entitic mass] 30.9 pg Normal 27.5-35.2 [facility] Comment on above: Performed By: #### M G, CBC, BMP ####[address] MCHC Auto (RBC) [Mass/Vol]Or dered By: Mateo Horne on 06-22-2024 MCHC (RBC) [Mass/Vol] 33.6 g/dL 32.5-35.6 [facility] MCHC (RBC) [Mass/Vol] MCHC [Mass/volume] by Automated count 32.5-35.6 [facility] MCV Auto (RBC) [Entitic vol] Ordered By: Mateo Horne on 06-22-2024 MCV (RBC) [Entitic vol] MCV [Entitic volume] by Automated count 83.5-101 [facility] MCV [Entitic volume] by Auto mated countOrdered By: Mateo Horne on 06-22-2024 MCV (RBC) [Entitic vol] 92.0 fL Normal 83.5-101 [facility] Comment on above: Performed By: #### M G, CBC, BMP ####[address] Magnesium [Mass/volume] in [place] or PlasmaOrdered By: Mateo Horne on 06-22-2024 Magnesium [Mass/Vol] 2.0 mg/dL Normal 1.9-2.7 [facility] Comment on above: Result Comment: PERF ORMED BY:[facility] [place], [place] [phone] MEDICAL DIRECTORGINA CARDONA M.D. Performed By: #### M G, CBC, BMP ####[facility] [id number] [place] [address] [facility] Magnesium [Mass/Vol] Magnesium [Mass/vol ume] in Serum or Plasma 1.9-2.7 [facility] Monocytes Auto (Bld) [#/Vol] Ordered By: Mateo Horne on 06-22-2024 Monocytes (Bld) [#/Vol] Automated blood monocyte count High 0.0-0.8 [facility] Monocytes/100 WBC Auto (Bld) Ordered By: Mateo Horne on 06-22-2024 Monocytes/100 WBC (Bld) Automated monocyte % . [facility] Neutrophils Auto (Bld) [#/Vo l]Ordered By: Mateo Horne on 06-22-2024 Neutrophils (Bld) [#/Vol] Neutrophils [#/volume] in Blood by Automated count High 1.8-7.7 [facility] Neutrophils [#/volume] in Bl ood by Automated countOrdered By: Mateo Horne on 06-22-2024 Neutrophils (Bld) [#/Vol] 8.6 10*3/uL High 1.8-7.7 [facility] Comment on above: Performed By: #### M G, CBC, BMP ####[facility] [id number] [place] [address] [place] Neutrophils/100 WBC Auto (Bl d)Ordered By: Mateo Horne on 06-22-2024 Neutrophils/100 WBC (Bld) Automated neutrophil % . [facility] No Panel InformationOrdered By: Mateo Horne on 06-22-2024 Estimated GFR (CKD-EPI) 39.967 mL/Min [facility] Creatinine Clearance (Chem 47.41 [facility] 39.967 mL/Min [facility] 47.41 [facility] Nucleated erythrocytes [Pres ence] in Blood by Automated countOrdered By: Mateo Horne on 06-22-2024 Nucleated RBC Auto Ql (Bld) 0.1 /100{WBC} 0-0.5 [facility] Nucleated RBC Auto Ql (Bld) Nucleated erythrocytes [Presence] in Blood by Automated count 0-0.5 [facility] Platelet mean volume Auto (B ld) [Entitic vol]Ordered By: Mateo Horne on 06-22-2024 Platelet mean volume (Bld) [Entitic vol] Platelet mean volume [Entitic volume] in Blood by Automated count 6.6-10.1 [facility] Platelet mean volume [Entiti c volume] in Blood by Automated countOrdered By: Mateo Horne on 06-22-2024 Platelet mean volume (Bld) [Entitic vol] 8.6 fL Normal 6.6-10.1 [facility] Comment on above: Performed By: #### M G, CBC, BMP ####[facility] [id number] Platelets Auto (Bld) [#/Vol] Ordered By: Mateo Horne on 06-22-2024 Platelets (Bld) [#/Vol] Platelets [#/volume] in Blood by Automated count 150-450 [facility] Platelets [#/volume] in Bloo d by Automated countOrdered By: Mateo Horne on 06-22-2024 Platelets (Bld) [#/Vol] 187 10*3/uL Normal 150-450 [facility] Comment on above: Performed By: #### M G, CBC, BMP ####[facility] [id number] Potassium [Moles/volume] in Serum or PlasmaOrdered By: Mateo Horne on 06-22-2024 Potassium [Moles/Vol] 3.2 mmol/L Low 3.5-5.1 [facility] Comment on above: Performed By: #### M Hannah, CBC, BMP ####[place] [id number] [place] [id number] [facility] Potassium [Moles/Vol] Potassium [Moles/v olume] in Serum or Plasma Low 3.5-5.1 [facility] RBC Auto (Bld) [#/Vol]Ordere d By: Mateo Horne on 06-22-2024 RBC (Bld) [#/Vol] Erythrocytes [#/volu me] in Blood by Automated count 3.90-5.60 [facility] Serum or plasma anion gap de terminationOrdered By: Mateo Horne on 06-22-2024 Anion gap [Moles/Vol] 12.4 mmol/L Normal 6.0-15.0 [facility] Comment on above: Performed By: #### M Hannah, CBC, BMP ####[place] [id number] [place] [id number] [facility] Anion gap [Moles/Vol] Serum or plasma an ion gap determination 6.0-15.0 [facility] Sodium [Moles/volume] in Ser um or PlasmaOrdered By: Mateo Horne on 06-22-2024 Sodium [Moles/Vol] 140 mmol/L Normal 136-145 [facility] Comment on above: Performed By: #### M Hannah, CBC, BMP ####[place] [id number] [place] [id number] [facility] Sodium [Moles/Vol] Sodium [Moles/volume ] in Serum or Plasma 136-145 [facility] Urea nitrogen [Mass/volume] in Serum or PlasmaOrdered By: Mateo Horne on 06-22-2024 Urea nitrogen [Mass/Vol] 45 mg/dL High 03-14 [facility] Comment on above: Performed By: #### M G, CBC, BMP ####[place] [id number] [place] [id number] [facility] Urea nitrogen [Mass/Vol] Urea nitrogen [Mass/volume] in Serum or Plasma High 03-14 [facility] WBC Auto (Bld) [#/Vol]Ordere d By: Mateo Horne on 06-22-2024 WBC (Bld) [#/Vol] Leukocytes [#/volume ] in Blood by Automated count High 4.1-10.5 [facility] Basic Metabolic Panelon 11-0 Anion gap [Moles/Vol] 12.1 mmol/L Normal 6.0-15.0 [facility] Comment on above: Performed By: #### C BC, MG, BMP ####[place] [id number] Calcium [Mass/Vol] 9.2 mg/dL Normal 8.6-10.3 [facility] Comment on above: Performed By: #### C BC, MG, BMP ####[address] [address] [facility] Chloride [Moles/Vol] 97 mmol/L Low 98-107 [facility] Comment on above: Performed By: #### C BC, MG, BMP ####[place] [address] [place] [address] [facility] CO2 [Moles/Vol] 34.3 mmol/L High 21.0-31.0 [facility] Comment on above: Performed By: #### C BC, MG, BMP ####[address] [address] [place] Creatinine [Mass/Vol] 1.51 mg/dL High 0.70-1.30 [facility] Comment on above: Performed By: #### C BC, MG, BMP ####[place] [address] [place] [address] [place] Creatinine Clr Calc Pharmacy 53.97 Normal [facility] Comment on above: Performed By: #### C BC, MG, BMP ####[place] [address] [place] [address] [place] GFR/1.73 sq M.predicted MDRD (S/P/Bld) [Vol rate/Area] 46.401 mL/min/{1.73_m2} Normal [facility] Comment on above: Performed By: #### C BC, MG, BMP ####[place] [address] [place] [id number] [facility] Glucose [Mass/Vol] 133 mg/dL High 70-100 [facility] Comment on above: Result Comment: [place] Glucose Reference Range is dependent on time and content of last meal. Glucose of more than 200 mg/dL in a nonstressed, ambulatory subject supports the diagnosis of Diabetes Mellitus. ADA recommended reference range Performed By: #### C BC, MG, BMP ####[place] [id number] [place] [id number] [facility] Potassium [Moles/Vol] 3.4 mmol/L Low 3.5-5.1 [facility] Comment on above: Performed By: #### C BC, MG, BMP ####[place] [id number] [facility] Sodium [Moles/Vol] 140 mmol/L Normal 136-145 [facility] Comment on above: Performed By: #### C BC, MG, BMP ####[place] [id number] [facility] Urea nitrogen [Mass/Vol] 35 mg/dL High 7-25 [facility] Comment on above: Performed By: #### C BC, MG, BMP ####[place] [id number] [facility] Complete Blood Count Auto Di ffon 06-21-2024 Basophils (Bld) [#/Vol] 0.0 10*3/uL Normal 0.0-0.2 [facility] Comment on above: Result Comment: PERF ORMED BY:[address] [place], [place] [phone] MEDICAL HUY CARDONA M.D. Performed By: #### C BC, MG, BMP ####[place] [id number] [place] [id number] [facility] Basophils/100 WBC (Bld) 0.2 % Normal . [facility] Comment on above: Performed By: #### C BC, MG, BMP ####[address] Eosinophils (Bld) [#/Vol] 0.0 10*3/uL Normal 0.0-0.45 [facility] Comment on above: Performed By: #### C BC, MG, BMP ####[address] Eosinophils/100 WBC (Bld) 0.0 % Normal . [facility] Comment on above: Performed By: #### C BC, MG, BMP ####[address] Erythrocyte distribution width (RBC) [Ratio] 15.0 % High 12.0-14.8 [facility] Comment on above: Performed By: #### C BC, MG, BMP ####[address] Hematocrit (Bld) [Volume fraction] 40.8 % Normal 38.8-50.0 [facility] Comment on above: Performed By: #### C BC, MG, BMP ####[address] Hemoglobin (Bld) [Mass/Vol] 13.7 g/dL Normal 13.0-17.0 [facility] Comment on above: Performed By: #### C BC, MG, BMP ####[address] Lymphocytes (Bld) [#/Vol] 1.0 10*3/uL Normal 1.00-4.8 [facility] Comment on above: Performed By: #### C BC, MG, BMP ####[address] Lymphocytes/100 WBC (Bld) 8.9 % Normal . [facility] Comment on above: Performed By: #### C BC, MG, BMP ####[address] MCH (RBC) [Entitic mass] 31.0 pg Normal 27.5-35.2 [facility] Comment on above: Performed By: #### C BC, MG, BMP ####[address] MCV (RBC) [Entitic vol] 92.0 fL Normal 83.5-101 [facility] Comment on above: Performed By: #### C BC, MG, BMP ####[address] Mean Corpuscular HGB Conc 33.7 g/dL Normal 32.5-35.6 [facility] Comment on above: Performed By: #### C BC, MG, BMP ####[address] Monocytes (Bld) [#/Vol] 1.1 10*3/uL High 0.0-0.8 [facility] Comment on above: Performed By: #### C BC, MG, BMP ####[address] Monocytes/100 WBC (Bld) 9.1 % Normal . [facility] Comment on above: Performed By: #### C BC, MG, BMP ####[address] Neutrophils (Bld) [#/Vol] 9.6 10*3/uL High 1.8-7.7 [facility] Comment on above: Performed By: #### C BC, MG, BMP ####[address] Neutrophils/100 WBC (Bld) 81.8 % Normal . [facility] Comment on above: Performed By: #### C BC, MG, BMP ####[address] NRBC% 0.1 /100{WBC} Normal 0-0.5 [facility] Comment on above: Performed By: #### C BC, MG, BMP ####[address] Platelet mean volume (Bld) [Entitic vol] 8.4 fL Normal 6.6-10.1 [facility] Comment on above: Performed By: #### C BC, MG, BMP ####[address] Platelets (Bld) [#/Vol] 199 10*3/uL Normal 150-450 [facility] Comment on above: Performed By: #### C BC, MG, BMP ####[address] RBC (Bld) [#/Vol] 4.43 10*6/uL Normal 3.90-5.60 [facility] Comment on above: Performed By: #### C BC, MG, BMP ####[address] WBC (Bld) [#/Vol] 11.8 10*3/uL High 4.1-10.5 [facility] Comment on above: Performed By: #### C BC, MG, BMP ####[address] Magnesiumon 06-21-2024 Magnesium [Mass/Vol] 1.8 mg/dL Low 1.9-2.7 [facility] Comment on above: Result Comment: PERF ORMED BY:[address] [place], [place] [phone] MEDICAL DIRECTORGINA CARDONA M.D. Performed By: #### C BC, MG, BMP ####[place] [id number] [facility] A1C with Estimated Average G luon 06-20-2024 Glucose [Mass/Vol] 148 mg/dL Normal [facility] Comment on above: Result Comment: PERF ORMED BY:[address] [place], [place] [phone] MEDICAL DIRECTORGINA CARDONA M.D. Performed By: #### H S TROP, BMP, MG, A1C WTH eA, CBC ####[address] Basic Metabolic Panelon 10-3 Anion gap [Moles/Vol] 12.7 mmol/L Normal 6.0-15.0 [facility] Comment on above: Performed By: #### H S TROP, BMP, MG, A1C WTH eA, CBC ####[address] Calcium [Mass/Vol] 9.1 mg/dL Normal 8.6-10.3 [facility] Comment on above: Performed By: #### H S TROP, BMP, MG, A1C WTH eA, CBC ####[address] Chloride [Moles/Vol] 101 mmol/L Normal 98-107 [facility] Comment on above: Performed By: #### H S TROP, BMP, MG, A1C WTH eA, CBC ####[address] CO2 [Moles/Vol] 33.0 mmol/L High 21.0-31.0 [facility] Comment on above: Performed By: #### H S TROP, BMP, MG, A1C WTH eA, CBC ####[address] Creatinine [Mass/Vol] 1.27 mg/dL Normal 0.70-1.30 [facility] Comment on above: Performed By: #### H S TROP, BMP, MG, A1C WTH eA, CBC ####[address] Creatinine Clr Calc Pharmacy 64.75 Normal [facility] Comment on above: Performed By: #### H S TROP, BMP, MG, A1C WTH eA, CBC ####[place] [address] [place] GFR/1.73 sq M.predicted MDRD (S/P/Bld) [Vol rate/Area] 57.112 mL/min/{1.73_m2} Normal [facility] Comment on above: Performed By: #### H S TROP, BMP, MG, A1C WTH eA, CBC ####[place] [id number] [place] [id number] [facility] Glucose [Mass/Vol] 140 mg/dL High 70-100 [facility] Comment on above: Result Comment: [place] Glucose Reference Range is dependent on time and content of last meal. Glucose of more than 200 mg/dL in a nonstressed, ambulatory subject supports the diagnosis of Diabetes Mellitus. ADA recommended reference range Performed By: #### H S TROP, BMP, MG, A1C WTH eA, CBC ####[place] [id number] [facility] Potassium [Moles/Vol] 3.7 mmol/L Normal 3.5-5.1 [facility] Comment on above: Performed By: #### H S TROP, BMP, MG, A1C WTH eA, CBC ####[address] [address] [facility] Sodium [Moles/Vol] 143 mmol/L Normal 136-145 [facility] Comment on above: Performed By: #### H S TROP, BMP, MG, A1C WTH eA, CBC ####[place] [id number] [facility] Urea nitrogen [Mass/Vol] 27 mg/dL High 7-25 [facility] Comment on above: Performed By: #### H S TROP, BMP, MG, A1C WTH eA, CBC ####[address] [address] [facility] Blood estimated average gluc ose determination by estimation from glycated hemoglobinOrdered By: Mateo Horne on 06-20-2024 Average glucose Estimated from glycated hemoglobin (Bld) [Mass/Vol] Glucose mean value [Mass/volume] in Blood Estimated from glycated hemoglobin [facility] Complete Blood Count Auto Di ffon 06-20-2024 Basophils (Bld) [#/Vol] 0.1 10*3/uL Normal 0.0-0.2 [facility] Comment on above: Result Comment: PERF ORMED BY:[address] [place], [place] [phone] MEDICAL DIRECTORJIANLAN SUN M.D. Performed By: #### H S TROP, BMP, MG, A1C WTH eA, CBC ####[address] Basophils/100 WBC (Bld) 1.0 % Normal . [facility] Comment on above: Performed By: #### H S TROP, BMP, MG, A1C WTH eA, CBC ####[address] Eosinophils (Bld) [#/Vol] 0.0 10*3/uL Normal 0.0-0.45 [facility] Comment on above: Performed By: #### H S TROP, BMP, MG, A1C WTH eA, CBC ####[address] Eosinophils/100 WBC (Bld) 0.0 % Normal . [facility] Comment on above: Performed By: #### H S TROP, BMP, MG, A1C WTH eA, CBC ####[address] Erythrocyte distribution width (RBC) [Ratio] 14.7 % Normal 12.0-14.8 [facility] Comment on above: Performed By: #### H S TROP, BMP, MG, A1C WTH eA, CBC ####[address] Hematocrit (Bld) [Volume fraction] 41.6 % Normal 38.8-50.0 [facility] Comment on above: Performed By: #### H S TROP, BMP, MG, A1C WTH eA, CBC ####[address] Hemoglobin (Bld) [Mass/Vol] 13.9 g/dL Normal 13.0-17.0 [facility] Comment on above: Performed By: #### H S TROP, BMP, MG, A1C WTH eA, CBC ####[address] Lymphocytes (Bld) [#/Vol] 0.7 10*3/uL Low 1.00-4.8 [facility] Comment on above: Performed By: #### H S TROP, BMP, MG, A1C WTH eA, CBC ####[address] Lymphocytes/100 WBC (Bld) 7.1 % Normal . [facility] Comment on above: Performed By: #### H S TROP, BMP, MG, A1C WTH eA, CBC ####[address] MCH (RBC) [Entitic mass] 30.9 pg Normal 27.5-35.2 [facility] Comment on above: Performed By: #### H S TROP, BMP, MG, A1C WTH eA, CBC ####[address] MCV (RBC) [Entitic vol] 92.7 fL Normal 83.5-101 [facility] Comment on above: Performed By: #### H S TROP, BMP, MG, A1C WTH eA, CBC ####[address] Mean Corpuscular HGB Conc 33.4 g/dL Normal 32.5-35.6 [facility] Comment on above: Performed By: #### H S TROP, BMP, MG, A1C WTH eA, CBC ####[address] Monocytes (Bld) [#/Vol] 0.7 10*3/uL Normal 0.0-0.8 [facility] Comment on above: Performed By: #### H S TROP, BMP, MG, A1C WTH eA, CBC ####[address] Monocytes/100 WBC (Bld) 7.2 % Normal . [facility] Comment on above: Performed By: #### H S TROP, BMP, MG, A1C WTH eA, CBC ####[address] Neutrophils (Bld) [#/Vol] 8.0 10*3/uL High 1.8-7.7 [facility] Comment on above: Performed By: #### H S TROP, BMP, MG, A1C WTH eA, CBC ####[address] Neutrophils/100 WBC (Bld) 84.7 % Normal . [facility] Comment on above: Performed By: #### H S TROP, BMP, MG, A1C WTH eA, CBC ####[address] NRBC% 0.1 /100{WBC} Normal 0-0.5 [facility] Comment on above: Performed By: #### H S TROP, BMP, MG, A1C WTH eA, CBC ####[address] Platelet mean volume (Bld) [Entitic vol] 8.5 fL Normal 6.6-10.1 [facility] Comment on above: Performed By: #### H S TROP, BMP, MG, A1C WTH eA, CBC ####[address] Platelets (Bld) [#/Vol] 196 10*3/uL Normal 150-450 [facility] Comment on above: Performed By: #### H S TROP, BMP, MG, A1C WTH eA, CBC ####[address] RBC (Bld) [#/Vol] 4.49 10*6/uL Normal 3.90-5.60 [facility] Comment on above: Performed By: #### H S TROP, BMP, MG, A1C WTH eA, CBC ####[address] WBC (Bld) [#/Vol] 9.5 10*3/uL Normal 4.1-10.5 [facility] Comment on above: Performed By: #### H S TROP, BMP, MG, A1C WTH eA, CBC ####[address] ECG 12 lead ECGon 06-20-2024 ECG 12 lead ECG Normal [facility] ECH echo transthoracicon ECH echo transthoracic Normal [facility] Glucose mean value [Mass/vol ume] in Blood Estimated from glycated hemoglobinOrdered By: Mateo Horne on 06-20-2024 Average glucose Estimated from glycated hemoglobin (Bld) [Mass/Vol] 148 mg/dL [facility] Hemoglobin A1c percentageOrd ered By: Mateo Horne on 06-20-2024 HbA1c (Bld) [Mass fraction] 6.8 % High 4.3-5.6 [facility] Comment on above: Increased risk for d iabetes: 5.7 - 6.4diabetes: >6.4glycemic control for adults with diabetes: <7.0 Result Comment: Incr eased risk for diabetes: 5.7 - 6.4 diabetes: >6.4 glycemic control for adults with diabetes: <7.0 Performed By: #### H S TROP, BMP, MG, A1C WTH eA, CBC ####[facility] [id number] [place] [address] [facility] Hemoglobin A1c/Hemoglobin.to sherrell in BloodOrdered By: Mateo Horne on 06-20-2024 HbA1c (Bld) [Mass fraction] Hemoglobin A1c percentage High 4.3-5.6 [facility] Comment on above: Increased risk for d iabetes: 5.7 - 6.4diabetes: >6.4glycemic control for adults with diabetes: <7.0 Magnesiumon 06-20-2024 Magnesium [Mass/Vol] 1.7 mg/dL Low 1.9-2.7 [facility] Comment on above: Result Comment: PERF ORMED BY:[facility] [place] [address] [place], [place] [phone] MEDICAL DIRECTORGINA CARDONA M.D. Performed By: #### H S TROP, BMP, MG, A1C WTH eA, CBC ####[facility] [id number] [place] [address] [facility] Troponin I High Sensitivityo n 06-20-2024 Troponin I High Sensitivity 8.2 pg/mL Normal 0.0-20.0 [facility] Comment on above: Result Comment: PERF ORMED BY:[address] [place], [place] [phone] MEDICAL DIRECTORGINA CARDONA M.D. Performed By: #### H S TROP, BMP, MG, A1C WTH eA, CBC ####[facility] [place] [address] [facility] Troponin I.cardiac [Mass/vol ume] in Serum or Plasma by Detection limit <= 0.01 ng/Ordered By: Mateo Horne on 06-20-2024 Troponin I.cardiac DL <= 0.01 ng/mL [Mass/Vol] 8.2 pg/mL 0.0-20.0 [facility] Troponin I.cardiac DL <= 0.01 ng/mL [Mass/Vol] Troponin I.cardiac [Mass/volume] in Serum or Plasma by Detection limit <= 0.01 ng/ 0.0-20.0 [facility] Alanine aminotransferase [En zymatic activity/volume] in Serum or PlasmaOrdered By: Dg Jacobson on 06-19-2024 ALT [Catalytic activity/Vol] 16 U/L Normal [facility] Comment on above: Performed By: #### B LETTERPRESS SETTER, MG, HS TROP, CBC, CMP, CK ####[address] [address] [facility] ALT [Catalytic activity/Vol] Alanine aminotransferase [Enzymatic activity/volume] in Serum or Plasma [facility] Albumin [Mass/volume] in Ser um or Plasma by Bromocresol green (BCG) dye binding methoOrdered By: Dg Jacobson on 06-19-2024 Albumin BCG dye [Mass/Vol] 3.8 g/dL 3.5-5.7 [facility] Albumin BCG dye [Mass/Vol] Albumin [Mass/volume] in Serum or Plasma by Bromocresol green (BCG) dye binding metho 3.5-5.7 [facility] Alkaline phosphatase [Enzyma tic activity/volume] in Serum or PlasmaOrdered By: Dg Jacobson on 06-19-2024 ALP [Catalytic activity/Vol] 52 U/L Normal 34 [facility] Comment on above: Performed By: #### B LETTERPRESS SETTER, MG, HS TROP, CBC, CMP, CK ####[address] ALP [Catalytic activity/Vol] Alkaline phosphatase [Enzymatic activity/volume] in Serum or Plasma [facility] Aspartate aminotransferase [ Enzymatic activity/volume] in Serum or PlasmaOrdered By: Dg Jacobson on 06-19-2024 AST [Catalytic activity/Vol] 21 U/L Normal 39 [facility] Comment on above: Performed By: #### B LETTERPRESS SETTER, MG, HS TROP, CBC, CMP, CK ####[address] AST [Catalytic activity/Vol] Aspartate aminotransferase [Enzymatic activity/volume] in Serum or Plasma [facility] Automated basophil %Ordered By: Dg Jacobson on 06-19-2024 Basophils/100 WBC (Bld) 1.0 % Normal . [facility] Comment on above: Performed By: #### B LETTERPRESS SETTER, MG, HS TROP, CBC, CMP, CK ####[address] Automated basophil countOrde red By: Dg Jacobson on 06-19-2024 Basophils (Bld) [#/Vol] 0.1 10*3/uL Normal 0.0-0.2 [facility] Comment on above: Result Comment: PERF ORMED BY:[address] [place], [place] [phone] MEDICAL DIRECTORGINA CARDONA M.D. Performed By: #### B LETTERPRESS SETTER, MG, HS TROP, CBC, CMP, CK ####[address] Automated blood monocyte cou ntOrdered By: Dg Jacobson on 06-19-2024 Monocytes (Bld) [#/Vol] 1.0 10*3/uL High 0.0-0.8 [facility] Comment on above: Performed By: #### B LETTERPRESS SETTER, MG, HS TROP, CBC, CMP, CK ####[address] Automated eosinophil %Ordere d By: Dg Jacobson on 06-19-2024 Eosinophils/100 WBC (Bld) 1.2 % Normal . [facility] Comment on above: Performed By: #### B LETTERPRESS SETTER, MG, HS TROP, CBC, CMP, CK ####[address] Automated eosinophil countOr dered By: Dg Jacobson on 06-19-2024 Eosinophils (Bld) [#/Vol] 0.1 10*3/uL Normal 0.0-0.45 [facility] Comment on above: Performed By: #### B LETTERPRESS SETTER, MG, HS TROP, CBC, CMP, CK ####[address] Automated monocyte %Ordered By: Dg Jacobson on 06-19-2024 Monocytes/100 WBC (Bld) 11.3 % Normal . [facility] Comment on above: Performed By: #### B LETTERPRESS SETTER, MG, HS TROP, CBC, CMP, CK ####[address] Automated neutrophil %Ordere d By: Dg Jacobson on 06-19-2024 Neutrophils/100 WBC (Bld) 59.0 % Normal . [facility] Comment on above: Performed By: #### B LETTERPRESS SETTER, MG, HS TROP, CBC, CMP, CK ####[address] BNP ser/plasOrdered By: José Manuel Jacobson on 06-19-2024 Natriuretic peptide B (Bld) [Mass/Vol] 114.0 pg/mL High 5-100 [facility] Comment on above: Result Comment: PERF ORMED BY:[address] [place], [place] [phone] MEDICAL DIRECTORGINA CARDONA M.D. Performed By: #### B LETTERPRESS SETTER, MG, HS TROP, CBC, CMP, CK ####[address] Bilirubin.total [Mass/volume ] in Serum or PlasmaOrdered By: Dg Jacobson on 06-19-2024 Bilirubin [Mass/Vol] 0.8 mg/dL Normal 0.3-1.0 [facility] Comment on above: Performed By: #### B LETTERPRESS SETTER, MG, HS TROP, CBC, CMP, CK ####[address] Bilirubin [Mass/Vol] Bilirubin.total [Mass/volume] in Serum or Plasma 0.3-1.0 [facility] Calcium [Mass/volume] in Ser um or PlasmaOrdered By: Dg Jacobson on 06-19-2024 Calcium [Mass/Vol] 9.0 mg/dL Normal 8.6-10.3 [facility] Comment on above: Performed By: #### B LETTERPRESS SETTER, MG, HS TROP, CBC, CMP, CK ####[address] Carbon dioxide, total [Moles /volume] in Serum or PlasmaOrdered By: Dg Jacobson on 06-19-2024 CO2 [Moles/Vol] 29.8 mmol/L Normal 21.0-31.0 [facility] Comment on above: Performed By: #### B LETTERPRESS SETTER, MG, HS TROP, CBC, CMP, CK ####[address] Chloride [Moles/volume] in S [place] or PlasmaOrdered By: Dg Jacobson on 06-19-2024 Chloride [Moles/Vol] 106 mmol/L Normal 98-107 [facility] Comment on above: Performed By: #### B LETTERPRESS SETTER, MG, HS TROP, CBC, CMP, CK ####[address] Complete Blood Count Auto Di ffon 06-19-2024 Mean Corpuscular HGB Conc 33.1 g/dL Normal 32.5-35.6 [facility] Comment on above: Performed By: #### B LETTERPRESS SETTER, MG, HS TROP, CBC, CMP, CK ####[address] Monocytes/100 WBC (Bld) 17.50 % Normal 0.00-20.00 [facility] Comment on above: Performed By: #### B LETTERPRESS SETTER, MG, HS TROP, CBC, CMP, CK ####[address] NRBC% 0.1 /100{WBC} Normal 0-0.5 [facility] Comment on above: Performed By: #### B LETTERPRESS SETTER, MG, HS TROP, CBC, CMP, CK ####[address] Comprehensive Metabolic Pane radha 06-19-2024 Albumin [Mass/Vol] 3.8 g/dL Normal 3.5-5.7 [facility] Comment on above: Performed By: #### B LETTERPRESS SETTER, MG, HS TROP, CBC, CMP, CK ####[address] Creatinine Clr Calc Pharmacy 62.88 Normal [facility] Comment on above: Result Comment: PERF ORMED BY:[address] [place], [place] [phone] MEDICAL HUY CARDONA M.D. Performed By: #### B LETTERPRESS SETTER, MG, HS TROP, CBC, CMP, CK ####[address] GFR/1.73 sq M.predicted MDRD (S/P/Bld) [Vol rate/Area] 53.076 mL/min/{1.73_m2} Normal [facility] Comment on above: Performed By: #### B LETTERPRESS SETTER, MG, HS TROP, CBC, CMP, CK ####[address] Creatine kinase [Enzymatic a ctivity/volume] in Serum or PlasmaOrdered By: Dg Jacobson on 06-19-2024 CK [Catalytic activity/Vol] 153 U/L Normal [facility] Comment on above: Performed By: #### B LETTERPRESS SETTER, MG, HS TROP, CBC, CMP, CK ####[place] [id number] [address] CK [Catalytic activity/Vol] Creatine kinase [Enzymatic activity/volume] in Serum or Plasma [facility] Creatinine [Mass/volume] in Serum or PlasmaOrdered By: Dg Jacobson on 06-19-2024 Creatinine [Mass/Vol] 1.35 mg/dL High 0.70-1.30 [facility] Comment on above: Performed By: #### B LETTERPRESS SETTER, MG, HS TROP, CBC, CMP, CK ####[place] [id number] [address] ECG 12 lead ECGon 06-19-2024 ECG 12 lead ECG Normal [facility] Erythrocyte distribution wid th [Ratio] by Automated countOrdered By: Dg Jacobson on 06-19-2024 Erythrocyte distribution width (RBC) [Ratio] 15.2 % High 12.0-14.8 [facility] Comment on above: Performed By: #### B LETTERPRESS SETTER, MG, HS TROP, CBC, CMP, CK ####[address] Erythrocytes [#/volume] in B lood by Automated countOrdered By: Dg Jacobson on 06-19-2024 RBC (Bld) [#/Vol] 4.44 10*6/uL Normal 3.90-5.60 [facility] Comment on above: Performed By: #### B LETTERPRESS SETTER, MG, HS TROP, CBC, CMP, CK ####[address] Globulin Calc (S) [Mass/Vol] Ordered By: Dg Jacobson on 06-19-2024 Globulin (S) [Mass/Vol] Serum globulin measurement by calculation (mass/volume) [facility] Glucose [Mass/volume] in Ser um or PlasmaOrdered By: Dg Jacobson on 06-19-2024 Glucose [Mass/Vol] 107 mg/dL High 70-100 [facility] Comment on above: ADA recommended refe rence rangeRandom Glucose Reference Range is dependent on time and content of last meal. Glucose of more than 200 mg/dL in a nonstressed, ambulatory subject supports the diagnosis of Diabetes Mellitus. Result Comment: [place] [facility] Glucose Reference Range is dependent on time and content of last meal. Glucose of more than 200 mg/dL in a nonstressed, ambulatory subject supports the diagnosis of Diabetes Mellitus. ADA recommended reference range Performed By: #### B LETTERPRESS SETTER, MG, HS TROP, CBC, CMP, CK ####[address] Hematocrit [Volume Fraction] of Blood by Automated countOrdered By: Dg Jacobson on 06-19-2024 Hematocrit (Bld) [Volume fraction] 41.5 % Normal 38.8-50.0 [facility] Comment on above: Performed By: #### B LETTERPRESS SETTER, MG, HS TROP, CBC, CMP, CK ####[address] Hemoglobin [Mass/volume] in BloodOrdered By: Dg Jacobson on 06-19-2024 Hemoglobin (Bld) [Mass/Vol] 13.7 g/dL Normal 13.0-17.0 [facility] Comment on above: Performed By: #### B LETTERPRESS SETTER, MG, HS TROP, CBC, CMP, CK ####[address] Leukocytes [#/volume] correc blessing for nucleated erythrocytes in Blood by Automated counOrdered By: Dg Jacobson on 06-19-2024 WBC corrected for nucl RBC Auto (Bld) [#/Vol] 8.7 10*3/uL 4.1-10.5 [facility] Leukocytes [#/volume] in Blo od by Automated countOrdered By: Dg Jacobson on 06-19-2024 WBC (Bld) [#/Vol] 8.7 10*3/uL Normal 4.1-10.5 [facility] Comment on above: Performed By: #### B LETTERPRESS SETTER, MG, HS TROP, CBC, CMP, CK ####[address] Lymphocytes [#/volume] in Bl ood by Automated countOrdered By: Dg Jacobson on 06-19-2024 Lymphocytes (Bld) [#/Vol] 2.4 10*3/uL Normal 1.00-4.8 [facility] Comment on above: Performed By: #### B LETTERPRESS SETTER, MG, HS TROP, CBC, CMP, CK ####[address] Lymphocytes/100 leukocytes i n Blood by Automated countOrdered By: Dg Jacobson on 06-19-2024 Lymphocytes/100 WBC (Bld) 27.5 % Normal . [facility] Comment on above: Performed By: #### B LETTERPRESS SETTER, MG, HS TROP, CBC, CMP, CK ####[address] MCH [Entitic mass] by Automa blessing countOrdered By: Dg Jacobson on 06-19-2024 MCH (RBC) [Entitic mass] 31.0 pg Normal 27.5-35.2 [facility] Comment on above: Performed By: #### B LETTERPRESS SETTER, MG, HS TROP, CBC, CMP, CK ####[address] MCHC Auto (RBC) [Mass/Vol]Or dered By: Dg Jacobson on 06-19-2024 MCHC (RBC) [Mass/Vol] 33.1 g/dL 32.5-35.6 [facility] MCV [Entitic volume] by Auto mated countOrdered By: Dg Jacobson on 06-19-2024 MCV (RBC) [Entitic vol] 93.6 fL Normal 83.5-101 [facility] Comment on above: Performed By: #### B LETTERPRESS SETTER, MG, HS TROP, CBC, CMP, CK ####[address] Magnesiumon 06-19-2024 Magnesium [Mass/Vol] 1.9 mg/dL Normal 1.9-2.7 [facility] Comment on above: Result Comment: PERF ORMED BY:[facility] [place], [place] [phone] MEDICAL DIRECTORGINA CARDONA M.D. Performed By: #### B LETTERPRESS SETTER, MG, HS TROP, CBC, CMP, CK ####[facility] [place] [address] [facility] Monocyte distribution width [Entitic volume] in Blood by AutomatedOrdered By: Dg Jacobson on 06-19-2024 Monocyte distribution width Auto (Bld) [Entitic vol] 17.50 % 0.00-20.00 [facility] Monocyte distribution width Auto (Bld) [Entitic vol] Monocyte distribution width [Entitic volume] in Blood by Automated 0.00-20.00 [facility] Natriuretic peptide B [Mass/ Vol]Ordered By: Dg Jacobson on 06-19-2024 Natriuretic peptide B (Bld) [Mass/Vol] BNP ser/plas High 5-100 [facility] Neutrophils [#/volume] in Bl ood by Automated countOrdered By: Dg Jacobson on 06-19-2024 Neutrophils (Bld) [#/Vol] 5.1 10*3/uL Normal 1.8-7.7 [facility] Comment on above: Performed By: #### B LETTERPRESS SETTER, MG, HS TROP, CBC, CMP, CK ####[facility] [place] [address] [facility] No Panel InformationOrdered By: Dg Jacobson on 06-19-2024 Estimated GFR (CKD-EPI) 53.076 mL/Min [facility] Creatinine Clearance (Chem 62.88 [facility] Nucleated erythrocytes [Pres ence] in Blood by Automated countOrdered By: Dg Jacobson on 06-19-2024 Nucleated RBC Auto Ql (Bld) 0.1 /100{WBC} 0-0.5 [facility] Platelet mean volume [Entiti c volume] in Blood by Automated countOrdered By: Dg Jacobson on 06-19-2024 Platelet mean volume (Bld) [Entitic vol] 8.1 fL Normal 6.6-10.1 [facility] Comment on above: Performed By: #### B LETTERPRESS SETTER, MG, HS TROP, CBC, CMP, CK ####[place] [id number] [facility] Platelets [#/volume] in Bloo d by Automated countOrdered By: Dg Jacobson on 06-19-2024 Platelets (Bld) [#/Vol] 200 10*3/uL Normal 150-450 [facility] Comment on above: Performed By: #### B LETTERPRESS SETTER, MG, HS TROP, CBC, CMP, CK ####[place] [id number] [facility] Potassium [Moles/volume] in Serum or PlasmaOrdered By: Dg Jacobson on 06-19-2024 Potassium [Moles/Vol] 3.4 mmol/L Low 3.5-5.1 [facility] Comment on above: Performed By: #### B LETTERPRESS SETTER, MG, HS TROP, CBC, CMP, CK ####[place] [id number] [facility] Protein [Mass/volume] in Ser um or PlasmaOrdered By: Dg Jacobson on 06-19-2024 Protein [Mass/Vol] 6.5 g/dL Normal 6.4-8.9 [facility] Comment on above: Performed By: #### B LETTERPRESS SETTER, MG, HS TROP, CBC, CMP, CK ####[place] [id number] [facility] Protein [Mass/Vol] Protein [Mass/volume ] in Serum or Plasma 6.4-8.9 [facility] Serum globulin measurement b y calculation (mass/volume)Ordered By: Dg Jacobson on 06-19-2024 Globulin (S) [Mass/Vol] 2.7 g/dL [facility] Comment on above: Performed By: #### B LETTERPRESS SETTER, MG, HS TROP, CBC, CMP, CK ####[place] [id number] [facility] Serum or plasma albumin/glob ulin mass ratioOrdered By: Dg Jacobson on 06-19-2024 Albumin/Globulin [Mass ratio] 1.4 {ratio} Normal [facility] Comment on above: Performed By: #### B LETTERPRESS SETTER, MG, HS TROP, CBC, CMP, CK ####[place] [id number] [place] [id number] [facility] Albumin/Globulin [Mass ratio] Serum or plasma albumin/globulin mass ratio [facility] Serum or plasma anion gap de terminationOrdered By: Dg Jacobson on 06-19-2024 Anion gap [Moles/Vol] 11.6 mmol/L Normal 6.0-15.0 [facility] Comment on above: Performed By: #### B LETTERPRESS SETTER, MG, HS TROP, CBC, CMP, CK ####[place] [id number] [place] [id number] [facility] Sodium [Moles/volume] in Ser um or PlasmaOrdered By: Dg Jacobson on 06-19-2024 Sodium [Moles/Vol] 144 mmol/L Normal 136-145 [facility] Comment on above: Performed By: #### B LETTERPRESS SETTER, MG, HS TROP, CBC, CMP, CK ####[place] [id number] [facility] Troponin I High Sensitivityo n 06-19-2024 Troponin I High Sensitivity 10.5 pg/mL Normal 0.0-20.0 [facility] Comment on above: Result Comment: PERF ORMED BY:[address] [place], [place] [phone] MEDICAL DIRECTORGINA CARDONA M.D. Performed By: #### B LETTERPRESS SETTER, MG, HS TROP, CBC, CMP, CK ####[address] [address] [facility] Troponin I.cardiac [Mass/vol ume] in Serum or Plasma by Detection limit <= 0.01 ng/Ordered By: Dg Jacobson on 06-19-2024 Troponin I.cardiac DL <= 0.01 ng/mL [Mass/Vol] 10.5 pg/mL 0.0-20.0 [facility] Urea nitrogen [Mass/volume] in Serum or PlasmaOrdered By: Dg Jacobson on 06-19-2024 Urea nitrogen [Mass/Vol] 32 mg/dL High 03-14 [facility] Comment on above: Performed By: #### B LETTERPRESS SETTER, MG, HS TROP, CBC, CMP, CK ####[facility] [address] [place] [address] [facility] XR chest 1V portableon 06-19 XR chest 1V portable Normal [facility] Alanine aminotransferase [En zymatic activity/volume] in Serum or PlasmaOrdered By: Eriberto Leyva on 02-12-2024 ALT [Catalytic activity/Vol] 22 U/L 7-52 [facility] Albumin [Mass/volume] in Ser um or Plasma by Bromocresol green (BCG) dye binding methoOrdered By: Eriberto Leyva on 02-12-2024 Albumin BCG dye [Mass/Vol] 3.6 g/dL 3.5-5.7 [facility] Alkaline phosphatase [Enzyma tic activity/volume] in Serum or PlasmaOrdered By: Eriberto Leyva on 02-12-2024 ALP [Catalytic activity/Vol] 62 U/L 34-104 [facility] Aspartate aminotransferase [ Enzymatic activity/volume] in Serum or PlasmaOrdered By: Eriberto Leyva on 02-12-2024 AST [Catalytic activity/Vol] 20 U/L 13-39 [facility] Bacteria [Presence] in Urine by AutomatedOrdered By: Eriberto Leyva on 02-12-2024 Bacteria Auto Ql (U) None seen [HPF] None Seen [facility] Basophils Auto (Bld) [#/Vol] Ordered By: Eriberto Leyva on 02-12-2024 Basophils (Bld) [#/Vol] 0.1 10*3/uL 0.0-0.2 [facility] Basophils/100 WBC Auto (Bld) Ordered By: Eriberto Leyva on 02-12-2024 Basophils/100 WBC (Bld) 0.6 % . [facility] Bilirubin Test strip Ql (U)O rdered By: Eriberto Leyva on 02-12-2024 Bilirubin Ql (U) Negative Negative [facility] Bilirubin.total [Mass/volume ] in Serum or PlasmaOrdered By: Eriberto Leyva on 02-12-2024 Bilirubin [Mass/Vol] 0.8 mg/dL 0.3-1.0 [facility] Calcium [Mass/volume] in Ser um or PlasmaOrdered By: Eriberto Leyav on 02-12-2024 Calcium [Mass/Vol] 9.1 mg/dL 8.6-10.3 [facility] Carbon dioxide, total [Moles /volume] in Serum or PlasmaOrdered By: Eriberto Leyva on 02-12-2024 CO2 [Moles/Vol] 30.7 mmol/L 21.0-31.0 [facility] Chloride [Moles/volume] in S [place] or PlasmaOrdered By: Eriberto Leyva on 02-12-2024 Chloride [Moles/Vol] 113 mmol/L 98-107 [facility] Color Auto (U)Ordered By: Lydia Leyva on 02-12-2024 Color (U) Light-yellow Yellow [facility] Creatine kinase [Enzymatic a ctivity/volume] in Serum or PlasmaOrdered By: Eriberto Leyva on 02-12-2024 CK [Catalytic activity/Vol] 113 U/L 30-223 [facility] Creatinine [Mass/volume] in Serum or PlasmaOrdered By: Eriberto Leyva on 02-12-2024 Creatinine [Mass/Vol] 1.26 mg/dL 0.70-1.30 [facility] Eosinophils Auto (Bld) [#/Vo l]Ordered By: Eriberto Leyva on 02-12-2024 Eosinophils (Bld) [#/Vol] 0.0 10*3/uL 0.0-0.45 [facility] Eosinophils/100 WBC Auto (Bl d)Ordered By: Eriberto Leyva on 02-12-2024 Eosinophils/100 WBC (Bld) 0.0 % . [facility] Epithelial cells.squamous [# /area] in Urine sediment by Automated countOrdered By: Eriberto Leyva on 02-12-2024 Epithelial cells.squamous Auto (Urine sed) [#/Area] N/A [facility] Erythrocyte distribution wid th Auto (RBC) [Ratio]Ordered By: Eriberto Leyva on 02-12-2024 Erythrocyte distribution width (RBC) [Ratio] 17.0 % 12.0-14.8 [facility] Erythrocyte sedimentation ra te by Photometric methodOrdered By: Eriberto Leyva on 02-12-2024 ESR Photometric method (Bld) [Velocity] 13 mm/hr 0-19 [facility] Erythrocytes [#/area] in Uri ne sediment by Automated countOrdered By: Eriberto Leyva on 02-12-2024 RBC Auto (Urine sed) [#/Area] 10-19 [HPF] 0-4 [facility] Globulin Calc (S) [Mass/Vol] Ordered By: Eriberto Leyva on 02-12-2024 Globulin (S) [Mass/Vol] 2.4 g/dL [facility] Glucose [Mass/volume] in Ser um or PlasmaOrdered By: Eriberto Leyva on 02-12-2024 Glucose [Mass/Vol] 133 mg/dL 70-100 [facility] Comment on above: ADA recommended refe rence rangeRandom Glucose Reference Range is dependent on time and content of last meal. Glucose of more than 200 mg/dL in a nonstressed, ambulatory subject supports the diagnosis of Diabetes Mellitus. Glucose [Mass/volume] in Uri ne by Test stripOrdered By: Eriberto Leyva on 02-12-2024 Glucose Test strip (U) [Mass/Vol] Normal mg/dL Normal [facility] Hematocrit Auto (Bld) [Volum e fraction]Ordered By: Eriberto Leyva on 02-12-2024 Hematocrit (Bld) [Volume fraction] 41.3 % 38.8-50.0 [facility] Hemoglobin Test strip Ql (U) Ordered By: Eriberto Leyva on 02-12-2024 Hemoglobin Ql (U) Trace Negative [facility] Hemoglobin [Mass/volume] in BloodOrdered By: Eriberto Leyva on 02-12-2024 Hemoglobin (Bld) [Mass/Vol] 13.7 g/dL 13.0-17.0 [facility] Hyaline casts [#/area] in Ur ine sediment by Automated countOrdered By: Eriberto Leyva on 02-12-2024 Hyaline casts Auto (Urine sed) [#/Area] None [LPF] 0-8 [facility] Ketones Test strip Ql (U)Ord ered By: Eriberto Leyva on 02-12-2024 Ketones Ql (U) Negative Negative [facility] Lactate [Moles/volume] in Se rum or PlasmaOrdered By: Eriberto Leyva on 02-12-2024 Lactate [Moles/Vol] 1.2 mmol/L 0.5-2.2 [facility] Leukocyte esterase [Presence ] in Urine by Test stripOrdered By: Eriberto Leyva on 02-12-2024 Leukocyte esterase Test strip Ql (U) Negative Negative [facility] Leukocytes [#/area] in Urine sediment by Automated countOrdered By: Eriberto Leyva on 02-12-2024 WBC Auto (Urine sed) [#/Area] 1-2 [HPF] 0-4 [facility] Leukocytes [#/volume] correc blessing for nucleated erythrocytes in Blood by Automated counOrdered By: Eriberto Leyva on 02-12-2024 WBC corrected for nucl RBC Auto (Bld) [#/Vol] 10.0 10*3/uL 4.1-10.5 [facility] Lymphocytes Auto (Bld) [#/Vo l]Ordered By: Eriberto Leyva on 02-12-2024 Lymphocytes (Bld) [#/Vol] 0.6 10*3/uL 1.00-4.8 [facility] Lymphocytes/100 WBC Auto (Bl d)Ordered By: Eriberto Leyva on 02-12-2024 Lymphocytes/100 WBC (Bld) 6.4 % . [facility] MCH Auto (RBC) [Entitic mass ]Ordered By: Eriberto Leyva on 02-12-2024 MCH (RBC) [Entitic mass] 30.0 pg 27.5-35.2 [facility] MCHC Auto (RBC) [Mass/Vol]Or dered By: Eriberto Leyva on 02-12-2024 MCHC (RBC) [Mass/Vol] 33.2 g/dL 32.5-35.6 [facility] MCV Auto (RBC) [Entitic vol] Ordered By: Eriberto Leyva on 02-12-2024 MCV (RBC) [Entitic vol] 90.2 fL 83.5-101 [facility] Monocyte distribution width [Entitic volume] in Blood by AutomatedOrdered By: Eriberto Leyva on 02-12-2024 Monocyte distribution width Auto (Bld) [Entitic vol] 20.05 % 0.00-20.00 [facility] Comment on above: For adults in ED, MD W > 20.0 may be associated with a higher risk of sepsis during the first 12 hrs of hospital admission Monocytes Auto (Bld) [#/Vol] Ordered By: Eriberto Leyva on 02-12-2024 Monocytes (Bld) [#/Vol] 0.5 10*3/uL 0.0-0.8 [facility] Monocytes/100 WBC Auto (Bld) Ordered By: Eriberto Leyva on 02-12-2024 Monocytes/100 WBC (Bld) 5.2 % . [facility] Neutrophils Auto (Bld) [#/Vo l]Ordered By: Eriberto Leyva on 02-12-2024 Neutrophils (Bld) [#/Vol] 8.8 10*3/uL 1.8-7.7 [facility] Neutrophils/100 WBC Auto (Bl d)Ordered By: Eriberto Leyva on 02-12-2024 Neutrophils/100 WBC (Bld) 87.8 % . [facility] Nitrite Test strip Ql (U)Ord ered By: Eriberto Leyva on 02-12-2024 Nitrite Ql (U) Negative Negative [facility] No Panel InformationOrdered By: Eriberto Leyva on 02-12-2024 Estimated GFR (CKD-EPI) 57.657 mL/Min [facility] Creatinine Clearance (Chem 64.79 [facility] Nucleated erythrocytes [Pres ence] in Blood by Automated countOrdered By: Eriberto Leyva on 02-12-2024 Nucleated RBC Auto Ql (Bld) 0.0 /100{WBC} 0-0.5 [facility] Platelet mean volume Auto (B ld) [Entitic vol]Ordered By: Eriberto Leyva on 02-12-2024 Platelet mean volume (Bld) [Entitic vol] 8.3 fL 6.6-10.1 [facility] Platelets Auto (Bld) [#/Vol] Ordered By: Eriberto Leyva on 02-12-2024 Platelets (Bld) [#/Vol] 155 10*3/uL 150-450 [facility] Potassium [Moles/volume] in Serum or PlasmaOrdered By: Eriberto Leyva on 02-12-2024 Potassium [Moles/Vol] 4.1 mmol/L 3.5-5.1 [facility] Protein Test strip (U) [Mass /Vol]Ordered By: Eriberto Leyva on 02-12-2024 Protein (U) [Mass/Vol] Negative Negative [facility] Protein [Mass/volume] in Ser um or PlasmaOrdered By: Eriberto Leyva on 02-12-2024 Protein [Mass/Vol] 6.0 g/dL 6.4-8.9 [facility] RBC Auto (Bld) [#/Vol]Ordere d By: Eriberto Leyva on 02-12-2024 RBC (Bld) [#/Vol] 4.58 10*6/uL 3.90-5.60 [facility] Serum or plasma albumin/glob ulin mass ratioOrdered By: Eriberto Leyva on 02-12-2024 Albumin/Globulin [Mass ratio] 1.5 {ratio} [facility] Serum or plasma anion gap de terminationOrdered By: Eriberto Leyva on 02-12-2024 Anion gap [Moles/Vol] -1.6000 mmol/L 6.0-15.0 [facility] Sodium [Moles/volume] in Ser um or PlasmaOrdered By: Eriberto Leyva on 02-12-2024 Sodium [Moles/Vol] 138 mmol/L 136-145 [facility] Specific gravity Test strip (U) [Rel density]Ordered By: Eriberto Leyva on 02-12-2024 Specific gravity (U) [Rel density] 1.017 1.001-1.03 0 [facility] Thyrotropin [Units/volume] i n Serum or PlasmaOrdered By: Eriberto Leyva on 02-12-2024 TSH Qn 1.22 m[IU]/L 0.45-5.33 [facility] Troponin I.cardiac [Mass/vol ume] in Serum or Plasma by Detection limit <= 0.01 ng/Ordered By: Eriberto Leyva on 02-12-2024 Troponin I.cardiac DL <= 0.01 ng/mL [Mass/Vol] 7.6 pg/mL 0.0-20.0 [facility] Urea nitrogen [Mass/volume] in Serum or PlasmaOrdered By: Eriberto Leyva on 02-12-2024 Urea nitrogen [Mass/Vol] 30 mg/dL 7-25 [facility] Urine appearanceOrdered By: Eriberto Leyva on 02-12-2024 Appearance (U) Clear Clear [facility] Urobilinogen Test strip (U) [Mass/Vol]Ordered By: Eriberto Leyva on 02-12-2024 Urobilinogen (U) [Mass/Vol] Normal mg/dL Normal [facility] WBC Auto (Bld) [#/Vol]Ordere d By: Eriberto Leyva on 02-12-2024 WBC (Bld) [#/Vol] 10.0 10*3/uL 4.1-10.5 [facility] pH Test strip (U)Ordered By: Eriberto Leyva on 02-12-2024 pH (U) 6.0 [pH] 5.0-9.0 [facility] SURGICAL PATHOLOGY REFERENCE LAB CONSULTon 2023 CASE REPORT Normal [facility] Comment on above: Order Comment: Speci men Type: FORMALIN-FIXED PARAFFIN-EMBEDDED TISSUE SPECIMEN Ordering Facility: [facility] Address: [address] [place], [place] [address] [address] Result Comment: Surg ical Pathology Report Case: [id number] Authorizing Provider: Ivan Barnhart MD Collected: 2023 09:46 AM Ordering Location: [facility] Received: 2023 09:46 AM [facility] Pathologist: Olivier Mina MD Specimen: SLIDE(S), 2 SLIDES [id number] Performed By: #### L [id number] #### [facility] CLIA [id number] [address] [place] [address] [place] CLINICAL HISTORY CONSULT REQUESTED [facility] Comment on above: Order Comment: Speci men Type: FORMALIN-FIXED PARAFFIN-EMBEDDED TISSUE SPECIMEN Ordering Facility: [facility] Address: [address] [place], [place] [address] [address] Performed By: #### L [id number] #### [facility] CLIA [id number] [address] [place] [address] [place] DIAGNOSIS COMMENT Thank you for allowi ng me to review this bladder lesion from an 78-year-old man. 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 Normal [facility] Comment on above: Order Comment: Speci men Type: FORMALIN-FIXED PARAFFIN-EMBEDDED TISSUE SPECIMEN Ordering Facility: [facility] Address: [address] [place] [id number] Performed By: #### L [id number] #### [facility] CLIA [id number] [address] [place] [address] FINAL DIAGNOSIS Normal [facility] Comment on above: Order Comment: Speci men Type: FORMALIN-FIXED PARAFFIN-EMBEDDED TISSUE SPECIMEN Ordering Facility: [facility] Address: [address] [place] [id number] Result Comment: [facility]; [place], [place] ([id number], 09/14/23) A. Urinary bladder, biopsy: - Benign nephrogenic adenoma. JKM 2023 Performed By: #### L [id number] #### [facility] CLIA [id number] [address] [place] [address] OF [facility] FINAL PERFORMING LAB Normal [facility] Comment on above: Order Comment: Speci men Type: FORMALIN-FIXED PARAFFIN-EMBEDDED TISSUE SPECIMEN Ordering Facility: [facility] Address: [place] [address] Result Comment: Diag nostic interpretation performed at [facility], [address] [place] [address] CLIA# [id number] Disposal Worker: Jaylan Mcfadden M.D. Performed By: #### L [id number] #### [facility] CLIA [id number] [address] [place] [address] [place] ECG 12 [place] 09-20-2023 Sinus bradycardia otherwise normal ECG [facility] Work Phone: Basophils Auto (Bld) [#/Vol] Ordered By: Antonia Grier on 05-30-2023 Basophils (Bld) [#/Vol] 0.0 10*3/uL 0.0-0.2 [facility] Basophils/100 WBC Auto (Bld) Ordered By: Antonia Grier on 05-30-2023 Basophils/100 WBC (Bld) 0.2 % . [facility] Calcium [Mass/volume] in Ser um or PlasmaOrdered By: Antonia Grier on 05-30-2023 Calcium [Mass/Vol] 8.6 mg/dL 8.6-10.3 [facility] Carbon dioxide, total [Moles /volume] in Serum or PlasmaOrdered By: Antonia Grier on 05-30-2023 CO2 [Moles/Vol] 30.6 mmol/L 21.0-31.0 [facility] Chloride [Moles/volume] in [place] or PlasmaOrdered By: Antonia Grier on 05-30-2023 Chloride [Moles/Vol] 104 mmol/L 98-107 [facility] Clostridioides difficile tox in B tcdB gene [Presence] in Stool by JAYDE with probe deteOrdered By: Silvestre Grover on 05-30-2023 C. difficile toxin B tcdB gene JAYDE+probe Ql (Stl) Negative Negative [facility] Comment on above: Testing performed by RT-PCR Creatinine [Mass/volume] in Serum or PlasmaOrdered By: Antonia Grier on 05-30-2023 Creatinine [Mass/Vol] 0.91 mg/dL 0.70-1.30 [facility] Eosinophils Auto (Bld) [#/Vo l]Ordered By: Antonia Grier on 05-30-2023 Eosinophils (Bld) [#/Vol] 0.2 10*3/uL 0.0-0.45 [facility] Eosinophils/100 WBC Auto (Bl d)Ordered By: Antonia Grier on 05-30-2023 Eosinophils/100 WBC (Bld) 3.8 % . [facility] Erythrocyte distribution wid th Auto (RBC) [Ratio]Ordered By: Antnoia Grier on 05-30-2023 Erythrocyte distribution width (RBC) [Ratio] 18.1 % 12.0-14.8 [facility] Glucose [Mass/volume] in Ser um or PlasmaOrdered By: Antonia Grier on 05-30-2023 Glucose [Mass/Vol] 98 mg/dL 70-100 [facility] Comment on above: ADA recommended refe rence rangeRandom Glucose Reference Range is dependent on time and content of last meal. Glucose of more than 200 mg/dL in a nonstressed, ambulatory subject supports the diagnosis of Diabetes Mellitus. Hematocrit Auto (Bld) [Volum e fraction]Ordered By: Antonia Grier on 05-30-2023 Hematocrit (Bld) [Volume fraction] 36.5 % 38.8-50.0 [facility] Hemoglobin [Mass/volume] in BloodOrdered By: Antonia Grier on 05-30-2023 Hemoglobin (Bld) [Mass/Vol] 12.2 g/dL 13.0-17.0 [facility] Leukocytes [#/volume] correc blessing for nucleated erythrocytes in Blood by Automated counOrdered By: Antonia Grier on 05-30-2023 WBC corrected for nucl RBC Auto (Bld) [#/Vol] 5.6 10*3/uL 4.1-10.5 [facility] Lymphocytes Auto (Bld) [#/Vo l]Ordered By: Antonia Grier on 05-30-2023 Lymphocytes (Bld) [#/Vol] 1.7 10*3/uL 1.00-4.8 [facility] Lymphocytes/100 WBC Auto (Bl d)Ordered By: Antonia Grier on 05-30-2023 Lymphocytes/100 WBC (Bld) 29.7 % . [facility] MCH Auto (RBC) [Entitic mass ]Ordered By: Antonia Grier on 05-30-2023 MCH (RBC) [Entitic mass] 28.7 pg 27.5-35.2 [facility] MCHC Auto (RBC) [Mass/Vol]Or dered By: Antonia Grier on 05-30-2023 MCHC (RBC) [Mass/Vol] 33.4 g/dL 32.5-35.6 [facility] MCV Auto (RBC) [Entitic vol] Ordered By: Antonia Grier on 05-30-2023 MCV (RBC) [Entitic vol] 85.8 fL 83.5-101 [facility] Monocytes Auto (Bld) [#/Vol] Ordered By: Antonia Grier on 05-30-2023 Monocytes (Bld) [#/Vol] 0.8 10*3/uL 0.0-0.8 [facility] Monocytes/100 WBC Auto (Bld) Ordered By: Antonia Grier on 05-30-2023 Monocytes/100 WBC (Bld) 14.8 % . [facility] Neutrophils Auto (Bld) [#/Vo l]Ordered By: Antonia Grier on 05-30-2023 Neutrophils (Bld) [#/Vol] 2.9 10*3/uL 1.8-7.7 [facility] Neutrophils/100 WBC Auto (Bl d)Ordered By: Antonia Grier on 05-30-2023 Neutrophils/100 WBC (Bld) 51.5 % . [facility] No Panel InformationOrdered By: Antonia Grier on 05-30-2023 Estimated GFR (CKD-EPI) > 60.0 mL/Min [facility] Creatinine Clearance (Chem 89.45 [facility] Nucleated erythrocytes [Pres ence] in Blood by Automated countOrdered By: Antonia Grier on 05-30-2023 Nucleated RBC Auto Ql (Bld) 0.2 /100{WBC} 0-0.5 [facility] Platelet mean volume Auto (B ld) [Entitic vol]Ordered By: Antonia Grier on 05-30-2023 Platelet mean volume (Bld) [Entitic vol] 7.9 fL 6.6-10.1 [facility] Platelets Auto (Bld) [#/Vol] Ordered By: Antonia Grier on 05-30-2023 Platelets (Bld) [#/Vol] 258 10*3/uL 150-450 [facility] Potassium [Moles/volume] in Serum or PlasmaOrdered By: Antonia Grier on 05-30-2023 Potassium [Moles/Vol] 3.6 mmol/L 3.5-5.1 [facility] RBC Auto (Bld) [#/Vol]Ordere d By: Antonia Grier on 05-30-2023 RBC (Bld) [#/Vol] 4.25 10*6/uL 3.90-5.60 [facility] Serum or plasma anion gap de terminationOrdered By: Antonia Grier on 05-30-2023 Anion gap [Moles/Vol] 9.0 mmol/L 6.0-15.0 [facility] Sodium [Moles/volume] in Ser um or PlasmaOrdered By: Antonia Grier on 05-30-2023 Sodium [Moles/Vol] 140 mmol/L 136-145 [facility] Urea nitrogen [Mass/volume] in Serum or PlasmaOrdered By: Antonia Grier on 05-30-2023 Urea nitrogen [Mass/Vol] 19 mg/dL 7-25 [facility] WBC Auto (Bld) [#/Vol]Ordere d By: Antonia Grier on 05-30-2023 WBC (Bld) [#/Vol] 5.6 10*3/uL 4.1-10.5 [facility] Alanine aminotransferase [En zymatic activity/volume] in Serum or PlasmaOrdered By: Silvestre Grover on 05-22-2023 ALT [Catalytic activity/Vol] 30 U/L 7-52 [facility] Albumin [Mass/volume] in Ser um or Plasma by Bromocresol green (BCG) dye binding methoOrdered By: Silvestre Grover on 05-22-2023 Albumin BCG dye [Mass/Vol] 2.5 g/dL 3.5-5.7 [facility] Alkaline phosphatase [Enzyma tic activity/volume] in Serum or PlasmaOrdered By: Silvestre Grover on 05-22-2023 ALP [Catalytic activity/Vol] 69 U/L 34-104 [facility] Aspartate aminotransferase [ Enzymatic activity/volume] in Serum or PlasmaOrdered By: Silvestre Grover on 05-22-2023 AST [Catalytic activity/Vol] 34 U/L 13-39 [facility] Bilirubin.total [Mass/volume ] in Serum or PlasmaOrdered By: Silvestre Grover on 05-22-2023 Bilirubin [Mass/Vol] 0.6 mg/dL 0.3-1.0 [facility] Globulin Calc (S) [Mass/Vol] Ordered By: Silvestre Grover on 05-22-2023 Globulin (S) [Mass/Vol] 4.7 g/dL [facility] Prealbumin [Mass/volume] in Serum or PlasmaOrdered By: Silvestre Grover on 05-22-2023 Prealbumin [Mass/Vol] 11.9 mg/dL 17.0-34.0 [facility] Protein [Mass/volume] in Ser um or PlasmaOrdered By: Silvestre Grover on 05-22-2023 Protein [Mass/Vol] 7.2 g/dL 6.4-8.9 [facility] Serum or plasma albumin/glob ulin mass ratioOrdered By: Silvestre Grover on 05-22-2023 Albumin/Globulin [Mass ratio] 0.5 {ratio} [facility] Basophils Auto (Bld) [#/Vol] Ordered By: Donita Armstrong on 05-20-2023 Basophils (Bld) [#/Vol] 0.0 10*3/uL 0.0-0.2 [facility] Basophils/100 WBC Auto (Bld) Ordered By: Donita Armstrong on 05-20-2023 Basophils/100 WBC (Bld) 0.3 % . [facility] Calcium [Mass/volume] in Ser um or PlasmaOrdered By: Donita Armstrong on 05-20-2023 Calcium [Mass/Vol] 8.1 mg/dL 8.6-10.3 [facility] Carbon dioxide, total [Moles /volume] in Serum or PlasmaOrdered By: Donita Armstrong on 05-20-2023 CO2 [Moles/Vol] 33.6 mmol/L 21.0-31.0 [facility] Chloride [Moles/volume] in [place] or PlasmaOrdered By: Donita Armstrong on 05-20-2023 Chloride [Moles/Vol] 107 mmol/L 98-107 [facility] Creatinine [Mass/volume] in Serum or PlasmaOrdered By: Donita Armstrong on 05-20-2023 Creatinine [Mass/Vol] 0.96 mg/dL 0.70-1.30 [facility] Eosinophils Auto (Bld) [#/Vo l]Ordered By: Donita Patti on 05-20-2023 Eosinophils (Bld) [#/Vol] 0.6 10*3/uL 0.0-0.45 [facility] Eosinophils/100 WBC Auto (Bl d)Ordered By: Donita Armstrong on 05-20-2023 Eosinophils/100 WBC (Bld) 10.4 % . [facility] Erythrocyte distribution wid th Auto (RBC) [Ratio]Ordered By: Donita Armstrong on 05-20-2023 Erythrocyte distribution width (RBC) [Ratio] 17.8 % 12.0-14.8 [facility] Glucose [Mass/volume] in Ser um or PlasmaOrdered By: Donita Armstrong on 05-20-2023 Glucose [Mass/Vol] 94 mg/dL 70-100 [facility] Comment on above: ADA recommended refe rence rangeRandom Glucose Reference Range is dependent on time and content of last meal. Glucose of more than 200 mg/dL in a nonstressed, ambulatory subject supports the diagnosis of Diabetes Mellitus. Hematocrit Auto (Bld) [Volum e fraction]Ordered By: Donita Armstrong on 05-20-2023 Hematocrit (Bld) [Volume fraction] 36.9 % 38.8-50.0 [facility] Hemoglobin [Mass/volume] in BloodOrdered By: Donita Armstrong on 05-20-2023 Hemoglobin (Bld) [Mass/Vol] 12.0 g/dL 13.0-17.0 [facility] Leukocytes [#/volume] correc blessing for nucleated erythrocytes in Blood by Automated counOrdered By: Donita Armstrong on 05-20-2023 WBC corrected for nucl RBC Auto (Bld) [#/Vol] 6.0 10*3/uL 4.1-10.5 [facility] Lymphocytes Auto (Bld) [#/Vo l]Ordered By: Donita Armstrong on 05-20-2023 Lymphocytes (Bld) [#/Vol] 1.3 10*3/uL 1.00-4.8 [facility] Lymphocytes/100 WBC Auto (Bl d)Ordered By: Donita Armstrong on 05-20-2023 Lymphocytes/100 WBC (Bld) 22.4 % . [facility] MCH Auto (RBC) [Entitic mass ]Ordered By: Donita Armstrong on 05-20-2023 MCH (RBC) [Entitic mass] 27.9 pg 27.5-35.2 [facility] MCHC Auto (RBC) [Mass/Vol]Or dered By: Donita Armstrong on 05-20-2023 MCHC (RBC) [Mass/Vol] 32.6 g/dL 32.5-35.6 [facility] MCV Auto (RBC) [Entitic vol] Ordered By: Donita Armstrong on 05-20-2023 MCV (RBC) [Entitic vol] 85.6 fL 83.5-101 [facility] Monocytes Auto (Bld) [#/Vol] Ordered By: Donita Patti on 05-20-2023 Monocytes (Bld) [#/Vol] 0.5 10*3/uL 0.0-0.8 [facility] Monocytes/100 WBC Auto (Bld) Ordered By: Donita Patti on 05-20-2023 Monocytes/100 WBC (Bld) 8.4 % . [facility] Neutrophils Auto (Bld) [#/Vo l]Ordered By: Donita Armstrong on 05-20-2023 Neutrophils (Bld) [#/Vol] 3.5 10*3/uL 1.8-7.7 [facility] Neutrophils/100 WBC Auto (Bl d)Ordered By: Donita Armstrong on 05-20-2023 Neutrophils/100 WBC (Bld) 58.5 % . [facility] No Panel InformationOrdered By: Donita Armstrong on 05-20-2023 Estimated GFR (CKD-EPI) > 60.0 mL/Min [facility] Creatinine Clearance (Chem 87.95 [facility] Nucleated erythrocytes [Pres ence] in Blood by Automated countOrdered By: Donita Armstrong on 05-20-2023 Nucleated RBC Auto Ql (Bld) 0.4 /100{WBC} 0-0.5 [facility] Platelet mean volume Auto (B ld) [Entitic vol]Ordered By: Donita Armstrong on 05-20-2023 Platelet mean volume (Bld) [Entitic vol] 8.5 fL 6.6-10.1 [facility] Platelets Auto (Bld) [#/Vol] Ordered By: Donita Armstrong on 05-20-2023 Platelets (Bld) [#/Vol] 134 10*3/uL 150-450 [facility] Potassium [Moles/volume] in Serum or PlasmaOrdered By: Donita Armstrong on 05-20-2023 Potassium [Moles/Vol] 3.6 mmol/L 3.5-5.1 [facility] RBC Auto (Bld) [#/Vol]Ordere d By: Donita Patti on 05-20-2023 RBC (Bld) [#/Vol] 4.31 10*6/uL 3.90-5.60 [facility] Serum or plasma anion gap de terminationOrdered By: Donita Armstrong on 05-20-2023 Anion gap [Moles/Vol] 6.0 mmol/L 6.0-15.0 [facility] Sodium [Moles/volume] in Ser um or PlasmaOrdered By: Donita Armstrong on 05-20-2023 Sodium [Moles/Vol] 143 mmol/L 136-145 [facility] Urea nitrogen [Mass/volume] in Serum or PlasmaOrdered By: Donita Armstrong on 05-20-2023 Urea nitrogen [Mass/Vol] 26 mg/dL 7-25 [facility] WBC Auto (Bld) [#/Vol]Ordere d By: Donita Patti on 05-20-2023 WBC (Bld) [#/Vol] 6.0 10*3/uL 4.1-10.5 [facility] Clostridioides difficile tox in B tcdB gene [Presence] in Stool by JAYDE with probe deteOrdered By: Suraj Razo on 05-19-2023 C. difficile toxin B tcdB gene JAYDE+probe Ql (Stl) Negative Negative [facility] Comment on above: Testing performed by RT-PCR Magnesium [Mass/volume] in S [place] or PlasmaOrdered By: Suraj Razo on 05-19-2023 Magnesium [Mass/Vol] 2.0 mg/dL 1.9-2.7 [facility] Glucose Glucometer (BldC) [M ass/Vol]Ordered By: Suraj Razo on 05-17-2023 Glucose [Mass/Vol] 107 mg/dL [facility] Comment on above: Random Glucose Refer ence Range is dependent on time and content of last meal. Glucose of more than 200 mg/dL in a nonstressed, ambulatory subject supports the diagnosis of Diabetes Mellitus. Automated erythrocytes count in urine sediment (number/area)Ordered By: Donita Armstrong on 05-16-2023 RBC Auto (Urine sed) [#/Area] 1-2 [HPF] 0-4 [facility] Automated leukocytes count i n urine sediment (number/area)Ordered By: Donita Armstrong on 05-16-2023 WBC Auto (Urine sed) [#/Area] 1-2 [HPF] 0-4 [facility] Automated urine sediment nabila cium oxalate crystal count by microscopy (number/high powOrdered By: Donita Armstrong on 05-16-2023 Calcium oxalate crystals LM.HPF (Urine sed) [#/Area] 1+ [HPF] [facility] Bacterial blood cultureOrder ed By: Donita Armstrong on 05-16-2023 Bacteria identified Cx Nom (Bld) NO GROWTH 5 DAYS [facility] Bacteria identified Cx Nom (Bld) Staphylococcus sp coag neg [facility] Bilirubin Test strip Ql (U)O rdered By: Donita Armstrong on 05-16-2023 Bilirubin Ql (U) Negative Negative [facility] Color Auto (U)Ordered By: Joaquin Armstrong on 05-16-2023 Color (U) Yellow Yellow [facility] Creatine kinase [Enzymatic a ctivity/volume] in Serum or PlasmaOrdered By: Jamel Packer on 05-16-2023 CK [Catalytic activity/Vol] 175 U/L 30-223 [facility] Ketones Auto test strip (U) [Mass/Vol]Ordered By: Donita Armstrong on 05-16-2023 Ketones (U) [Mass/Vol] Negative [facility] - UrinalysisOrder ed By: Donita Armstrong on 05-16-2023 Hyaline casts LM Ql (Urine sed) 9-19 [LPF] 0-8 [facility] Nitrite Test strip Ql (U)Ord ered By: Donita Armstrong on 05-16-2023 Nitrite Ql (U) Negative Negative [facility] No Panel InformationOrdered By: Suraj Razo on 05-16-2023 Bedside Glucose Comment Glu2: cleaned meter [facility] No Panel InformationOrdered By: Donita Armstrong on 05-16-2023 Bacterial ID (NA Multiplex Assay) [facility] Protein Auto test strip (U) [Mass/Vol]Ordered By: Donita Armstrong on 05-16-2023 Protein (U) [Mass/Vol] 30 mg/dL Negative [facility] Specific gravity Auto test s trip (U) [Rel density]Ordered By: Donita Armstrong on 05-16-2023 Specific gravity (U) [Rel density] 1.026 1.001-1.03 0 [facility] Squamous epithelial cells de tection in urine sediment by light microscopyOrdered By: Donita Armstrong on 05-16-2023 Epithelial cells.squamous LM Ql (Urine sed) 0-1 [HPF] 0-2 [facility] Thyrotropin [Units/volume] i n Serum or PlasmaOrdered By: Donita Armstrong on 05-16-2023 TSH Qn 1.50 m[IU]/L 0.45-5.33 [facility] Troponin I.cardiac [Mass/vol ume] in Serum or Plasma by Detection limit <= 0.01 ng/Ordered By: Donita Armstrong on 05-16-2023 Troponin I.cardiac DL <= 0.01 ng/mL [Mass/Vol] 33.0 pg/mL 0.0-20.0 [facility] Urine bacteria detection by automated methodOrdered By: Donita Armstrong on 05-16-2023 Bacteria Auto Ql (U) None seen None Seen [facility] Urine clarity by refractomet ry automatedOrdered By: Donita Armstrong on 05-16-2023 Clarity Refractometry automated (U) Clear Clear [facility] Urine culture routineOrdered By: Donita Armstrong on 05-16-2023 Bacteria identified Cx Nom (U) No Growth 2 Days [facility] Urine glucose measurement by automated test strip (mass/volume)Ordered By: Donita Armstrong on 05-16-2023 Glucose Auto test strip (U) [Mass/Vol] Normal mg/dL Normal [facility] Urine hemoglobin detection b y automated test stripOrdered By: Donita Armstrong on 05-16-2023 Hemoglobin Auto test strip Ql (U) Negative Negative [facility] Urine leukocyte esterase det ection by automated test stripOrdered By: Donita Armstrong on 05-16-2023 Leukocyte esterase Auto test strip Ql (U) 1+ Negative [facility] Urobilinogen Auto test strip (U) [Mass/Vol]Ordered By: Donita Armstrong on 05-16-2023 Urobilinogen (U) [Mass/Vol] Normal mg/dL Normal [facility] Yeast detection in urine sed iment by light microscopyOrdered By: Donita Armstrong on 05-16-2023 Yeast LM Ql (Urine sed) None seen [HPF] None Seen [facility] pH Auto test strip (U)Ordere d By: Donita Armstrong on 05-16-2023 pH (U) 5.5 [pH] 5.0-9.0 [facility] Laboratory - Chemistry and C hemistry - challengeOrdered By: Eliezer Newell on 05-15-2023 CO2 [Moles/Vol] 36.3 mmol/L 23.0-27.0 [facility] HCO3 (Bld) [Moles/Vol] 34.8 mmol/L 23.0-29.0 [facility] No Panel InformationOrdered By: Eliezer Newell on 05-15-2023 Arterial Blood Base Excess 9.2 mmol/L -3.0-3.0 [facility] Arterial Blood Oxygen Content 7.9 mmol/L 6.6-9.7 [facility] Arterial Blood Oxygen Saturation 92.2 % 95.0-100.0 [facility] Arterial Blood Partial Pressure CO2 50.8 mm[Hg] 35.0-45.0 [facility] Arterial Blood Partial Pressure O2 60.0 mm[Hg] 80.0-100.0 [facility] Arterial Blood pH 7.45 7.35-7.45 [facility] Blood Gas Critical Value See comment [facility] Comment on above: Critical Value humphries d on: 05/15/2023 at 05:57 Blood Gas PEEP 5 cmH2O [facility] Blood Gas Sample Site Right radial F [facility] Blood Gas Set Respiration Rate 10 [facility] Blood Gas Tidal Volume 500 [facility] Blood Gas Ventilator Mode Ac [facility] FiO2 35 % [facility] Triglyceride [Mass/volume] i n Serum or PlasmaOrdered By: Lexy Chappell on 05-15-2023 Triglyceride [Mass/Vol] 224 mg/dL 35-149 [facility] Comment on above: TRIG ATP III CLASSIF ICATIONTRIG less than 150 mg/dL NormalTRIG 150-199 mg/dL Borderline highTRIG 200-500 mg/dL High TRIG greater than 500 mg/dL Very highStandard traceable to the Center for Disease Conrtrol and Prevention (CDC) test method. No Panel InformationOrdered By: Eliezer Newell on 05-13-2023 Arterial Blood pCO2 (Temp correct) 53.2 mm[Hg] 35.0-45.0 [facility] Arterial Blood pH (Temp corrected) 7.36 7.35-7.45 [facility] Arterial Blood pO2 (Temp corrected) 77.8 mm[Hg] 80.0-100.0 [facility] Aerobic cultureOrdered By: Valdemar Armstrong on 05-12-2023 Bacteria identified Aer cx Nom (Unsp spec) 2 Days [facility] Basophils/100 WBC Manual cnt (Bld)Ordered By: Stanley Burt on 05-12-2023 Basophils/100 WBC (Bld) 0 % 0-2 [facility] Eosinophils/100 WBC Manual c nt (Bld)Ordered By: Stanley Burt on 05-12-2023 Eosinophils/100 WBC (Bld) 6 % 1-3 [facility] Gram stain for investigation of transfusion reactionOrdered By: Donita Armstrong on 05-12-2023 Microscopic observation Gram stain Nom (Unsp spec) [facility] Haptoglobin [Mass/volume] in Serum or PlasmaOrdered By: Stanley Burt on 05-12-2023 Haptoglobin [Mass/Vol] 93 mg/dL 44-215 [facility] Comment on above: Hemolysis is present at a level that could interfere with the result. Lymphocytes/100 WBC Manual c nt (Bld)Ordered By: Stanley Burt on 05-12-2023 Lymphocytes/100 WBC (Bld) 5 % 18-42 [facility] Monocytes/100 WBC Manual cnt (Bld)Ordered By: Stanley Burt on 05-12-2023 Monocytes/100 WBC (Bld) 1 % 2-11 [facility] No Panel InformationOrdered By: Stanley Burt on 05-12-2023 Slides for Pathologist Review Ordered path review [facility] Platelet adequacy [Presence] in Blood by Light microscopyOrdered By: Stanley Burt on 05-12-2023 Platelets LM Ql (Bld) Decreased Normal [facility] Platelet morphology finding [Identifier] in BloodOrdered By: Stanley Burt on 05-12-2023 Platelet morphology finding Nom (Bld) Normal Normal [facility] Polychromasia [Presence] in Blood by Light microscopyOrdered By: Stanley Burt on 05-12-2023 Polychromasia LM Ql (Bld) Slight [facility] RBC morphologyOrdered By: Farhan Burt on 05-12-2023 RBC morphology finding Nom (Bld) N/A [facility] Segmented neutrophils/100 WB C Manual cnt (Bld)Ordered By: Stanley Burt on 05-12-2023 Segmented neutrophils/100 WBC (Bld) 88 % 50-70 [facility] Teardrop cell detectionOrder ed By: Stanley Burt on 05-12-2023 Dacrocytes LM Ql (Bld) Slight [facility] Alanine aminotransferase [En zymatic activity/volume] in Serum or PlasmaOrdered By: Jarret Garza on 05-11-2023 ALT [Catalytic activity/Vol] 23 U/L 7-52 [facility] Albumin [Mass/volume] in Ser um or Plasma by Bromocresol green (BCG) dye binding methoOrdered By: Jarret Garza on 05-11-2023 Albumin BCG dye [Mass/Vol] 3.1 g/dL 3.5-5.7 [facility] Alkaline phosphatase [Enzyma tic activity/volume] in Serum or PlasmaOrdered By: Jarret Garza on 05-11-2023 ALP [Catalytic activity/Vol] 55 U/L 34-104 [facility] Aspartate aminotransferase [ Enzymatic activity/volume] in Serum or PlasmaOrdered By: Jarret Garza on 05-11-2023 AST [Catalytic activity/Vol] 28 U/L 13-39 [facility] Bilirubin.total [Mass/volume ] in Serum or PlasmaOrdered By: Jarret Garza on 05-11-2023 Bilirubin [Mass/Vol] 0.9 mg/dL 0.3-1.0 [facility] Globulin Calc (S) [Mass/Vol] Ordered By: Jarret Garza on 05-11-2023 Globulin (S) [Mass/Vol] 2.7 g/dL [facility] INR in Platelet poor plasma by Coagulation assayOrdered By: Jarret Garza on 05-11-2023 INR Coag (PPP) [Relative time] 1.4 {INR} [facility] Comment on above: INR Therapeutic Rang [...] on 05-11-2023 Phosphate [Mass/Vol] 2.7 mg/dL 3.7-7.2 [facility] Protein [Mass/volume] in Ser um or PlasmaOrdered By: Jarret Garza on 05-11-2023 Protein [Mass/Vol] 5.8 g/dL 6.4-8.9 [facility] Prothrombin time (PT)Ordered By: Jarret Garza on 05-11-2023 PT Coag (PPP) [Time] 17.1 s 9.0-12.9 [facility] Comment on above: A hematocrit value g reater than 55% may lead to inaccurate results in coagulation testing. Patients having hematocrit values >55% require a special collection tube for coagulation studies. Please contact the laboratory at [phone] for redraw instructions. Serum or plasma albumin/glob ulin mass ratioOrdered By: Jarret Garza on 05-11-2023 Albumin/Globulin [Mass ratio] 1.1 {ratio} [facility] Basic Metabolic Panelon 09-22 Anion gap [Moles/Vol] 15 mmol/L 9 - 17 mmol/L [facility] Calcium [Mass/Vol] 8.3 mg/dL Low 8.6 - 10. 4 mg/dL [facility] Chloride [Moles/Vol] 102 mmol/L 98 - 10 7 mmol/L [facility] CO2 [Moles/Vol] 23 mmol/L 20 - 31 mmol/L [facility] Creatinine [Mass/Vol] 1.17 mg/dL 0.70 - 1.20 mg/dL [facility] GFR/1.73 sq M.predicted MDRD (S/P/Bld) [Vol rate/Area] - PINF [facility] Comment on above: These results are [...] [Mass/Vol] 91 mg/dL 70 - 99 mg/dL [facility] Interpretation and review of laboratory results Abnormal [facility] Potassium [Moles/Vol] 3.2 mmol/L Low 3.7 - 5.3 mmol/L [facility] Sodium [Moles/Vol] 140 mmol/L 135 - 144 mmol/L [facility] Urea nitrogen [Mass/Vol] 17 mg/dL 8 - 23 mg/dL [facility] Basic Metabolic Profon 10-18 Anion gap [Moles/Vol] 15 mmol/L Normal 9-17 [facility] Comment on above: Performed By: #### M G, CBC, BMP #### [facility] [employer] [facility] [place] [address] Client Experience Consultant: Wenceslao Rose MD Calcium [Mass/Vol] 8.3 mg/dL Low 8.6-10.4 [facility] Comment on above: Performed By: #### M G, CBC, BMP #### [facility] [address] [place] [phone] Client Experience Consultant: Wenceslao Rose MD Chloride [Moles/Vol] 102 mmol/L Normal 98-107 [facility] Comment on above: Performed By: #### M G, CBC, BMP #### [facility] [address] [place] [phone] Client Experience Consultant: Wenceslao Rose MD CO2 [Moles/Vol] 23 mmol/L Normal 20-31 [facility] Comment on above: Performed By: #### M G, CBC, BMP #### [facility] [employer] [address] [place] [phone] Client Experience Consultant: Wenceslao Rose MD Creatinine [Mass/Vol] 1.17 mg/dL Normal 0.70-1.20 [facility] Comment on above: Performed By: #### M G, CBC, BMP #### [address] [address] Client Experience Consultant: Wenceslao Rose MD GFR/1.73 sq M.predicted among non-blacks MDRD (S/P/Bld) [Vol rate/Area] mL/min/{1.73_m2} Normal >60 [facility] Comment on above: Result Comment: [...] renal tubular secretion. Performed By: #### M G, CBC, BMP #### [address] [phone] Client Experience Consultant: Wenceslao Rose MD Glucose [Mass/Vol] 91 mg/dL Normal 70-99 [facility] Comment on above: Performed By: #### Marcial Young, CBC, BMP #### [facility] [employer] [address] [place] [phone] Client Experience Consultant: Wenceslao Rose MD Potassium [Moles/Vol] 3.2 mmol/L Low 3.7-5.3 [facility] Comment on above: Performed By: #### Marcial Yuong, CBC, BMP #### [address] [address] Client Experience Consultant: Wenceslao Rose MD Sodium [Moles/Vol] 140 mmol/L Normal 135-144 [facility] Comment on above: Performed By: #### Marcial Young, CBC, BMP #### [facility] [employer] [address] [place] [phone] Client Experience Consultant: Wenceslao Rose MD Urea nitrogen [Mass/Vol] 17 mg/dL Normal 8-23 [facility] Comment on above: Performed By: #### Marcial Young, CBC, BMP #### [facility] [employer] [address] [place] [phone] Client Experience Consultant: Wenceslao Rose MD [facility] Erythrocyte distribution width (RBC) [Ratio] 21.9 % High 11.8-14.4 [facility] Comment on above: Performed By: #### Marcial Young, CBC, BMP #### [address] [address] Client Experience Consultant: Wenceslao Rose MD Hematocrit (Bld) [Volume fraction] 35.2 % Low 40.7-50.3 [facility] Comment on above: Performed By: #### Marcial Young, CBC, BMP #### [facility] [employer] [address] [place] [phone] Client Experience Consultant: Wenceslao Rose MD Hemoglobin (Bld) [Mass/Vol] 10.2 g/dL Low 13.0-17.0 [facility] Comment on above: Performed By: #### Marcial Young, CBC, BMP #### [address] [address] Client Experience Consultant: Wenceslao Rose MD MCH (RBC) [Entitic mass] 22.3 pg Low 25.2-33.5 [facility] Comment on above: Performed By: #### M G, CBC, BMP #### [address] [address] Client Experience Consultant: Wenceslao Rose MD MCHC (RBC) [Mass/Vol] 29.0 g/dL Normal 28.4-34.8 [facility] Comment on above: Performed By: #### Marcial Young, CBC, BMP #### [address] [address] Client Experience Consultant: Wenceslao Rose MD MCV (RBC) [Entitic vol] 76.9 fL Low 82.6-102.9 [facility] Comment on above: Performed By: #### Marcial G, CBC, BMP #### [address] [address] Client Experience Consultant: Wenceslao Rose MD NRBC Automated 0.0 per 100 WBC Normal 0.0 [facility] Comment on above: Performed By: #### Marcial G, CBC, BMP #### [address] [address] Client Experience Consultant: Wenceslao Rose MD Platelet mean volume (Bld) [Entitic vol] 10.1 fL Normal 8.1-13.5 [facility] Comment on above: Performed By: #### M G, CBC, BMP #### [address] [address] Client Experience Consultant: Wenceslao Rose MD Platelets (Bld) [#/Vol] 198 10*3/uL Normal 138-453 [facility] Comment on above: Performed By: #### Marcial G, CBC, BMP #### [address] [place], [place] [phone] Client Experience Consultant: Wenceslao Rose MD RBC (Bld) [#/Vol] 4.58 10*6/uL Normal 4.21-5.77 [facility] Comment on above: Performed By: #### M G, CBC, BMP #### [employer] [address] [place], [place] [phone] Client Experience Consultant: Wenceslao Rose MD WBC (Bld) [#/Vol] 6.2 10*3/uL Normal 3.5-11.3 [facility] Comment on above: Performed By: #### M G, CBC, BMP #### [employer] [address] [place], [place] [phone] Client Experience Consultant: Wenceslao Rose MD Hematocrit (Bld) [Volume fraction] 35.2 % Low 40.7 - 50.3 % [facility] Hemoglobin (Bld) [Mass/Vol] 10.2 g/dL Low 13.0 - 17.0 g/dL [facility] Interpretation and review of laboratory results Abnormal [facility] MCH (RBC) [Entitic mass] 22.3 pg Low 25.2 - 33.5 pg [facility] MCHC (RBC) [Mass/Vol] 29.0 g/dL 28.4 - 34.8 g/dL [facility] MCV (RBC) [Entitic vol] 76.9 fL Low 82.6 - 102.9 fL [facility] NRBC Automated 0.0 0.0 per 100 WBC [facility] Platelet distribution width (Bld) [Ratio] 21.9 % High 11.8 - 14.4 % [facility] Platelet mean volume (Bld) [Entitic vol] 10.1 fL 8.1 - 13.5 fL [facility] Platelets (Bld) [#/Vol] 198 10*3/uL [facility] RBC (Bld) [#/Vol] 4.58 10*6/uL 4.21 - 5.77 m/uL [facility] WBC (Bld) [#/Vol] 6.2 10*3/uL [facility] Magnesiumon 10-18-2022 Magnesium [Mass/Vol] 2.0 mg/dL Normal 1.6-2.6 [facility] Comment on above: Performed By: #### M G, CBC, BMP #### [facility] [address] [phone] Client Experience Consultant: Wenceslao Rose MD Magnesium [Mass/Vol] 2.0 mg/dL 1.6 - 2 .6 mg/dL [facility] Basic Metabolic Panelon 09-22 Anion gap [Moles/Vol] 15 mmol/L 9 - 17 mmol/L [facility] Calcium [Mass/Vol] 8.8 mg/dL 8.6 - 10. 4 mg/dL [facility] Chloride [Moles/Vol] 102 mmol/L 98 - 10 7 mmol/L [facility] CO2 [Moles/Vol] 22 mmol/L 20 - 31 mmol/L [facility] Creatinine [Mass/Vol] 1.09 mg/dL 0.70 - 1.20 mg/dL [facility] GFR/1.73 sq M.predicted MDRD (S/P/Bld) [Vol rate/Area] - PINF [facility] Comment on above: These results are [...] [Mass/Vol] 98 mg/dL 70 - 99 mg/dL [facility] Interpretation and review of laboratory results Abnormal [facility] Potassium [Moles/Vol] 3.6 mmol/L Low 3.7 - 5.3 mmol/L [facility] Sodium [Moles/Vol] 139 mmol/L 135 - 144 mmol/L [facility] Urea nitrogen [Mass/Vol] 19 mg/dL 8 - 23 mg/dL [facility] Basic Metabolic Profon 10-17 Anion gap [Moles/Vol] 15 mmol/L Normal 9-17 [facility] Comment on above: Performed By: #### B MP, CBC #### [facility] [address] [place] [phone] Client Experience Consultant: Wenceslao Rose MD Calcium [Mass/Vol] 8.8 mg/dL Normal 8.6-10.4 [facility] Comment on above: Performed By: #### B MP, CBC #### [facility] [employer] [address] [place] [phone] Client Experience Consultant: Wenceslao Rose MD Chloride [Moles/Vol] 102 mmol/L Normal 98-107 [facility] Comment on above: Performed By: #### B MP, CBC #### [facility] [employer] [address] [place] [phone] Client Experience Consultant: Wenceslao Rose MD CO2 [Moles/Vol] 22 mmol/L Normal 20-31 [facility] Comment on above: Performed By: #### B MP, CBC #### [facility] [address] [place] [phone] Client Experience Consultant: Wenceslao Rose MD Creatinine [Mass/Vol] 1.09 mg/dL Normal 0.70-1.20 [facility] Comment on above: Performed By: #### B MP, CBC #### [facility] [address] [place] [phone] Client Experience Consultant: Wenceslao Rose MD GFR/1.73 sq M.predicted among non-blacks MDRD (S/P/Bld) [Vol rate/Area] mL/min/{1.73_m2} Normal >60 [facility] Comment on above: Result Comment: [...] Performed By: #### B SUZANNE, CBC #### [facility] [employer] [address] [place] [phone] Client Experience Consultant: Wenceslao Rose MD Glucose [Mass/Vol] 98 mg/dL Normal 70-99 [facility] Comment on above: Performed By: #### B MP, CBC #### [facility] [employer] [address] [place] [phone] Client Experience Consultant: Wenceslao Rose MD Potassium [Moles/Vol] 3.6 mmol/L Low 3.7-5.3 [facility] Comment on above: Performed By: #### B SUZANNE, CBC #### [facility] [employer] [address] [place] [phone] Client Experience Consultant: Wenceslao Rose MD Sodium [Moles/Vol] 139 mmol/L Normal 135-144 [facility] Comment on above: Performed By: #### B MP, CBC #### [facility] [employer] [address] [place] [phone] Client Experience Consultant: Wenceslao Rose MD Urea nitrogen [Mass/Vol] 19 mg/dL Normal 8-23 [facility] Comment on above: Performed By: #### B MP, CBC #### [facility] [employer] [address] [place] [phone] Client Experience Consultant: Wenceslao Rose MD CBCon 10-17-2022 Erythrocyte distribution width (RBC) [Ratio] 22.3 % High 11.8-14.4 [facility] Comment on above: Performed By: #### B MP, CBC #### [facility] [employer] [address] [place] [phone] Client Experience Consultant: Wenceslao Rose MD Hematocrit (Bld) [Volume fraction] 36.9 % Low 40.7-50.3 [facility] Comment on above: Performed By: #### B MP, CBC #### [address] [address] Client Experience Consultant: Wenceslao Rose MD Hemoglobin (Bld) [Mass/Vol] 10.5 g/dL Low 13.0-17.0 [facility] Comment on above: Performed By: #### B MP, CBC #### [facility] [employer] [address] [place] [phone] Client Experience Consultant: Wenceslao Rose MD MCH (RBC) [Entitic mass] 22.2 pg Low 25.2-33.5 [facility] Comment on above: Performed By: #### B MP, CBC #### [address] [address] Client Experience Consultant: Wenceslao Rose MD MCHC (RBC) [Mass/Vol] 28.5 g/dL Normal 28.4-34.8 [facility] Comment on above: Performed By: #### B MP, CBC #### [address] [address] Client Experience Consultant: Wenceslao Rose MD MCV (RBC) [Entitic vol] 78.0 fL Low 82.6-102.9 [facility] Comment on above: Performed By: #### B MP, CBC #### [address] [phone] Client Experience Consultant: Wenceslao Rose MD NRBC Automated 0.0 per 100 WBC Normal 0.0 [facility] Comment on above: Performed By: #### B MP, CBC #### [address] [phone] Client Experience Consultant: Wenceslao Rose MD Platelet mean volume (Bld) [Entitic vol] 10.3 fL Normal 8.1-13.5 [facility] Comment on above: Performed By: #### B MP, CBC #### [email or web address] [address] [place] [address] Client Experience Consultant: Wenceslao Rose MD Platelets (Bld) [#/Vol] 185 10*3/uL Normal 138-453 [facility] Comment on above: Performed By: #### B MP, CBC #### [facility] [place] [address] Client Experience Consultant: Wenceslao Rose MD RBC (Bld) [#/Vol] 4.73 10*6/uL Normal 4.21-5.77 [facility] Comment on above: Performed By: #### B MP, CBC #### [email or web address] [place] [address] Client Experience Consultant: Wenceslao Rose MD WBC (Bld) [#/Vol] 6.6 10*3/uL Normal 3.5-11.3 [facility] Comment on above: Performed By: #### B MP, CBC #### [address] [address] Client Experience Consultant: Wenceslao Rose MD Hematocrit (Bld) [Volume fraction] 36.9 % Low 40.7 - 50.3 % [facility] Hemoglobin (Bld) [Mass/Vol] 10.5 g/dL Low 13.0 - 17.0 g/dL [facility] Interpretation and review of laboratory results Abnormal [facility] MCH (RBC) [Entitic mass] 22.2 pg Low 25.2 - 33.5 pg [facility] MCHC (RBC) [Mass/Vol] 28.5 g/dL 28.4 - 34.8 g/dL [facility] MCV (RBC) [Entitic vol] 78.0 fL Low 82.6 - 102.9 fL [facility] NRBC Automated 0.0 0.0 per 100 WBC [facility] Platelet distribution width (Bld) [Ratio] 22.3 % High 11.8 - 14.4 % [facility] Platelet mean volume (Bld) [Entitic vol] 10.3 fL 8.1 - 13.5 fL [facility] Platelets (Bld) [#/Vol] 185 10*3/uL [facility] RBC (Bld) [#/Vol] 4.73 10*6/uL 4.21 - 5.77 m/uL [facility] WBC (Bld) [#/Vol] 6.6 10*3/uL [facility] Cult,Urineon 10-17-2022 Cult,Urine Specimen Description .CLEAN CATCH URINE Culture NO GROWTH Report Status FINAL 10/17/2022 Normal [facility] Comment on above: Performed By: #### U RC #### [employer] [address] [place], [place] [phone] Client Experience Consultant: Wenceslao Rose MD Culture, Urineon 10-17-2022 Microorganism identified Cx Nom (Unsp spec) NO GROWTH [facility] Specimen Description .CLEAN CATCH URINE [facility] Basic Metab w/rfx MGon 10-16 Anion gap [Moles/Vol] 11 mmol/L Normal 9-17 [facility] Comment on above: Performed By: #### P RCAL, BMPX, CRP, PT #### [employer] [address] [place], [place] [phone] Client Experience Consultant: Wenceslao Rose MD Calcium [Mass/Vol] 8.1 mg/dL Low 8.6-10.4 [facility] Comment on above: Performed By: #### P RCAL, BMPX, CRP, PT #### [employer] [address] [place] [phone] Client Experience Consultant: Wenceslao Rose MD Chloride [Moles/Vol] 104 mmol/L Normal 98-107 [facility] Comment on above: Performed By: #### P RCAL, BMPX, CRP, PT #### [employer] [address] [place] [phone] Client Experience Consultant: Wenceslao Rose MD CO2 [Moles/Vol] 23 mmol/L Normal 20-31 [facility] Comment on above: Performed By: #### P RCAL, BMPX, CRP, PT #### [address] [phone] Client Experience Consultant: eWnceslao Rose MD Creatinine [Mass/Vol] 1.13 mg/dL Normal 0.70-1.20 [facility] Comment on above: Performed By: #### P RCAL, BMPX, CRP, PT #### [address] [address] Client Experience Consultant: Wenceslao Rose MD GFR/1.73 sq M.predicted among non-blacks MDRD (S/P/Bld) [Vol rate/Area] mL/min/{1.73_m2} Normal >60 [facility] Comment on above: Result Comment: [...] #### P RCAL, BMPX, CRP, PT #### [address] [phone] Client Experience Consultant: Wenceslao Rose MD Glucose [Mass/Vol] 95 mg/dL Normal 70-99 [facility] Comment on above: Performed By: #### P RCAL, BMPX, CRP, PT #### [facility] [employer] [address] [place] [phone] Client Experience Consultant: Wenceslao Rose MD Potassium [Moles/Vol] 3.6 mmol/L Low 3.7-5.3 [facility] Comment on above: Performed By: #### P RCAL, BMPX, CRP, PT #### [facility] [address] [place], [place] [phone] Client Experience Consultant: Wenceslao Rose MD Sodium [Moles/Vol] 138 mmol/L Normal 135-144 [facility] Comment on above: Performed By: #### P RCAL, BMPX, CRP, PT #### [facility] [address] [place], [place] [phone] Client Experience Consultant: Wenceslao Rose MD Urea nitrogen [Mass/Vol] 16 mg/dL Normal 8-23 [facility] Comment on above: Performed By: #### P RCAL, BMPX, CRP, PT #### [facility] [address] [place], [place] [phone] Client Experience Consultant: Wenceslao Rose MD Basic Metabolic Panel w/ Ref mitchel to on 10-16-2022 Anion gap [Moles/Vol] 11 mmol/L 9 - 17 mmol/L [facility] [employer] Calcium [Mass/Vol] 8.1 mg/dL Low 8.6 - 10. 4 mg/dL [facility] [employer] Chloride [Moles/Vol] 104 mmol/L 98 - 10 7 mmol/L [facility] [employer] [facility] [employer] CO2 [Moles/Vol] 23 mmol/L 20 - 31 mmol/L [facility] [employer] Creatinine [Mass/Vol] 1.13 mg/dL 0.70 - 1.20 mg/dL [facility] GFR/1.73 sq M.predicted MDRD (S/P/Bld) [Vol rate/Area] - PINF [facility] Comment on above: These results are [...] [Mass/Vol] 95 mg/dL 70 - 99 mg/dL [facility] [employer] Interpretation and review of laboratory results Abnormal [facility] Potassium [Moles/Vol] 3.6 mmol/L Low 3.7 - 5.3 mmol/L [facility] Sodium [Moles/Vol] 138 mmol/L 135 - 144 mmol/L [facility] Urea nitrogen [Mass/Vol] 16 mg/dL 8 - 23 mg/dL [facility] C-Reactive Proteinon 023 CRP [Mass/Vol] 86.3 mg/L High 0.0-5.0 [facility] Comment on above: Performed By: #### M G, CBC, BMP #### [facility] [employer] [facility] [place] [address] Client Experience Consultant: Wenceslao Rose MD CRP High sensitivity method [Mass/Vol] 86.3 mg/L High 0.0 - 5.0 mg/L [facility] Interpretation and review of laboratory results Abnormal [facility] CBC with Auto Differentialon 10-16-2022 Absolute Eos # 0.13 [facility] Absolute Immature Granulocyte 0.00 [facility] Absolute Lymph # 0.82 Low [facility] Absolute [place] # 0.88 High [facility] RS [facility] Basophils (Bld) [#/Vol] 0.00 10*3/uL [facility] Basophils/100 WBC (Bld) 0 % 0 - 2 % [facility] Eosinophils/100 WBC (Bld) 2 % 1 - 4 % [facility] Hematocrit (Bld) [Volume fraction] 33.5 % Low 40.7 - 50.3 % [facility] Hemoglobin (Bld) [Mass/Vol] 10.2 g/dL Low 13.0 - 17.0 g/dL [facility] Immature granulocytes/100 WBC (Bld) 0 % 0 [facility] Interpretation and review of laboratory results Abnormal [facility] Lymphocytes/100 WBC (Bld) 13 % Low 24 - 44 % [facility] MCH (RBC) [Entitic mass] 22.5 pg Low 25.2 - 33.5 pg [facility] MCHC (RBC) [Mass/Vol] 30.4 g/dL 28.4 - 34.8 g/dL [facility] MCV (RBC) [Entitic vol] 73.8 fL Low 82.6 - 102.9 fL [facility] Monocytes/100 WBC (Bld) 14 % High 1 - 7 % [facility] Morphology Ck (Bld) [Interp] ANISOCYTOSIS PRESENT [facility] Morphology Ck (Bld) [Interp] MICROCYTOSIS PRESENT [facility] NRBC Automated 0.0 0.0 per 100 WBC [facility] Platelet distribution width (Bld) [Ratio] 22.2 % High 11.8 - 14.4 % [facility] Platelets (Bld) [#/Vol] See Reflexed IPF Result [facility] RBC (Bld) [#/Vol] 4.54 10*6/uL 4.21 - 5.77 m/uL [facility] Segmented neutrophils/100 WBC (Bld) 71 % High 36 - 66 % [facility] Segs Absolute 4.47 [facility] WBC (Bld) [#/Vol] 6.3 10*3/uL [facility] CBC with Diffon 10-16-2022 Abs. Basophil 0.00 k/uL Normal 0.0-0.2 [facility] Comment on above: Performed By: #### C DP, IPF #### [employer] [address] [place], [place] [phone] Client Experience Consultant: Wenceslao Rose MD Abs.Imm.Granulocyte 0.00 k/uL Normal 0.00-0.30 [facility] Comment on above: Performed By: #### C DP, IPF #### [employer] [address] [place], [place] [phone] Client Experience Consultant: Wenceslao Rose MD Abs.Neutrophil (Seg) 4.47 k/uL Normal 1.8-7.7 [facility] Comment on above: Performed By: #### C DP, IPF #### [address] [address] Client Experience Consultant: Wenceslao Rose MD Basophils/100 WBC (Bld) 0 % Normal 0-2 [facility] Comment on above: Performed By: #### C DP, IPF #### [address] [address] Client Experience Consultant: Wenceslao Rose MD Eosinophils (Bld) [#/Vol] 0.13 10*3/uL Normal 0.0-0.4 [facility] Comment on above: Performed By: #### C DP, IPF #### [address] [address] Client Experience Consultant: Wenceslao Rose MD Eosinophils/100 WBC (Bld) 2 % Normal 1-4 [facility] Comment on above: Performed By: #### C DP, IPF #### [address] [address] Client Experience Consultant: Wenceslao Rose MD Immature granulocytes/100 WBC (Bld) 0 % Normal 0 [facility] Comment on above: Performed By: #### C DP, IPF #### [address] [address] Client Experience Consultant: Wenceslao Rose MD Lymphocytes (Bld) [#/Vol] 0.82 10*3/uL Low 1.0-4.8 [facility] Comment on above: Performed By: #### C DP, IPF #### [facility] [address] [place] [phone] Client Experience Consultant: Wenceslao Rose MD Lymphocytes/100 WBC (Bld) 13 % Low 24-44 [facility] Comment on above: Performed By: #### C DP, IPF #### [address] [address] Client Experience Consultant: Wenceslao Rose MD Monocytes (Bld) [#/Vol] 0.88 10*3/uL High 0.1-0.8 [facility] Comment on above: Performed By: #### C DP, IPF #### [address] [address] Client Experience Consultant: Wenceslao Rose MD Monocytes/100 WBC (Bld) 14 % High 1-7 [facility] Comment on above: Performed By: #### C DP, IPF #### [address] [address] Client Experience Consultant: Wenceslao Rose MD Morphology Ck (Bld) [Interp] ANISOCYTOSIS PRESENT Normal [facility] Comment on above: Result Comment: MICR OCYTOSIS PRESENT Performed By: #### C DP, IPF #### [address] [address] Client Experience Consultant: Wenceslao Rose MD Neutrophil (Seg) 71 % High 36-66 [facility] Comment on above: Performed By: #### C DP, IPF #### [address] [address] Client Experience Consultant: Wenceslao Rose MD Erythrocyte distribution width (RBC) [Ratio] 22.2 % High 11.8-14.4 [facility] Comment on above: Performed By: #### C DP, IPF #### [address] [address] Client Experience Consultant: Wenceslao Rose MD Hematocrit (Bld) [Volume fraction] 33.5 % Low 40.7-50.3 [facility] Comment on above: Performed By: #### C DP, IPF #### [address] [address] Client Experience Consultant: Wenceslao Rose MD Hemoglobin (Bld) [Mass/Vol] 10.2 g/dL Low 13.0-17.0 [facility] Comment on above: Performed By: #### C DP, IPF #### [address] [address] Client Experience Consultant: Wenceslao Rose MD MCH (RBC) [Entitic mass] 22.5 pg Low 25.2-33.5 [facility] Comment on above: Performed By: #### C DP, IPF #### [address] [address] Client Experience Consultant: Wenceslao Rose MD MCHC (RBC) [Mass/Vol] 30.4 g/dL Normal 28.4-34.8 [facility] Comment on above: Performed By: #### C DP, IPF #### [address] [address] Client Experience Consultant: Wenceslao Rose MD MCV (RBC) [Entitic vol] 73.8 fL Low 82.6-102.9 [facility] Comment on above: Performed By: #### C DP, IPF #### [address] [address] Client Experience Consultant: Wenceslao Rose MD NRBC Automated 0.0 per 100 WBC Normal 0.0 [facility] Comment on above: Performed By: #### C DP, IPF #### [address] [address] Client Experience Consultant: Wenceslao Rose MD Platelet Count See Reflexed IPF Result Normal 138-453 [facility] Comment on above: Performed By: #### C DP, IPF #### [address] [address] Client Experience Consultant: Wenceslao Rose MD RBC (Bld) [#/Vol] 4.54 10*6/uL Normal 4.21-5.77 [facility] Comment on above: Performed By: #### C DP, IPF #### [address] [phone] Client Experience Consultant: Wenceslao Rose MD WBC (Bld) [#/Vol] 6.3 10*3/uL Normal 3.5-11.3 [facility] Comment on above: Performed By: #### C DP, IPF #### [facility] [employer] [address] [place] [phone] Client Experience Consultant: Wenceslao Rose MD Immature Platelet Fractionon 10-16-2022 Platelet, Fluorescence 154 [facility] Comment on above: ORDERED BY LAB Platelet, Immature Fraction 5.3 % 1.1 - 10.3 % [facility] [employer] Comment on above: ORDERED BY LAB [facility] Microscopic Urinalysison Casts UA 5 TO 10 HYALINE Refe rence range defined for non-centrifuged specimen. [facility] [employer] Epithelial Cells UA 2 TO 5 [facility] RBC clumps Auto (Urine sed) [#/Area] TOO NUMEROUS TO COUNT [facility] [employer] Comment on above: Reference range defi radha for non-centrifuged specimen. WBC, UA 50 TO 100 [facility] [employer] [facility] [employer] PLT, Immature Fract.on 10-16 Platelet, Fluoresc. 154 k/uL Normal 138-453 [facility] Comment on above: Result Comment: ORDE RED BY LAB Performed By: #### C DP, IPF #### [facility] [employer] [address] [place] [phone] Client Experience Consultant: Wenceslao Rose MD PLT, Immature Fract. 5.3 % Normal 1.1-10.3 [facility] Comment on above: Result Comment: ORDE RED BY LAB Performed By: #### C DP, IPF #### [facility] [employer] [address] [place], [place] [phone] Client Experience Consultant: Wenceslao Rose MD PTon INR Coag (PPP) [Relative time] 1.2 {INR} Normal [facility] Comment on above: Result Comment: Therapeutic Range: Moderate Anticoagulant Intensity: INR = 2.0-3.0 High Anticoagulant Intensity: INR = 2.5-3.5 Performed By: #### P RCAL, BMPX, CRP, PT #### [facility] [place], [place] [phone] Client Experience Consultant: Wenceslao Rose MD PT Coag (PPP) [Time] 12.4 s High 9.1-12.3 [facility] Comment on above: Performed By: #### P RCAL, BMPX, CRP, PT #### [facility] [address] [place], [place] [phone] Client Experience Consultant: Wenceslao Rose MD Procalcitoninon 10-16-2022 Procalcitonin 0.20 ng/mL High <0.09 [facility] Comment on above: Result Comment: [...] entered into the Change in Procalcitonin Calculator (www.btxrqx-xmi-jzsjqppdoh.com) to determine the patient's Mortality Risk Prognosis In healthy neonates, plasma Procalcitonin (PCT) concentrations increase gradually after , reaching peak values at about 24 hours of age then decrease to normal values below 0.5 ng/mL by 48-72 hours of age. Performed By: #### M G, CBC, BMP #### [facility] [employer] [address] [place], [place] [phone] Client Experience Consultant: Wenceslao Rose MD Interpretation and review of laboratory results Abnormal [facility] Procalcitonin [Mass/Vol] 0.2 ng/mL High NINF - 0.09 ng/mL [facility] Comment on above: Suspected Sepsis: <0.50 ng/mL [...] entered into the Change in Procalcitonin Calculator (www.wuylof-zzd-afmbgrnaaa.[employer]biotix) to determine the patient's Mortality Risk Prognosis In healthy neonates, plasma Procalcitonin (PCT) concentrations increase gradually after , reaching peak values at about 24 hours of age then decrease to normal values below 0.5 ng/mL by 48-72 hours of age. [facility] Protime-INRon 10-16-2022 INR Coag (PPP) [Relative time] 1.2 {INR} [facility] Comment on above: Therapeutic Range: Moderate Anticoagulant Intensity: INR = 2.0-3.0 High Anticoagulant Intensity: INR = 2.5-3.5 Interpretation and review of laboratory results Abnormal [facility] PT Coag (PPP) [Time] 12.4 s High [facility] UA w/Reflex Cultureon 2022 Bilirubin, SemiQt,Ur Negative Normal NEG [facility] Comment on above: Performed By: #### M G, CBC, BMP #### [employer] [address] [place] [address] Client Experience Consultant: Wenceslao Rose MD Blood, Urine LARGE Abnormal NEG [facility] Comment on above: Performed By: #### M G, CBC, BMP #### [employer] [address] [place] [address] Client Experience Consultant: Wenceslao Rose MD Clarity (U) Cloudy Abnormal CLEAR [facility] Comment on above: Performed By: #### M G, CBC, BMP #### [facility] [address] [place] [phone] Client Experience Consultant: Wenceslao Rose MD Color (U) Yellow Normal YEL [facility] Comment on above: Performed By: #### M G, CBC, BMP #### [facility] [address] [place] [phone] Client Experience Consultant: Wenceslao Rose MD Glucose Ql (U) Negative Normal NEG [facility] Comment on above: Performed By: #### M G, CBC, BMP #### [facility] [address] [address] Client Experience Consultant: Wenceslao Rose MD Ketones Ql (U) MODERATE Abnormal NEG [facility] Comment on above: Performed By: #### M G, CBC, BMP #### [address] [address] Client Experience Consultant: Wenceslao Rose MD Leukocyte esterase Test strip Ql (U) SMALL Abnormal NEG [facility] Comment on above: Performed By: #### M G, CBC, BMP #### [facility] [employer] [address] [place] [phone] Client Experience Consultant: Wenceslao Rose MD Nitrite,Ur Negative Normal NEG [facility] Comment on above: Performed By: #### M G, CBC, BMP #### [facility] [address] [place] [phone] Client Experience Consultant: Wenceslao Rose MD PH,Ur 5.5 Normal 5.0-8.0 [facility] Comment on above: Performed By: #### M G, CBC, BMP #### [facility] [address] [place] [phone] Client Experience Consultant: Wenceslao Rose MD Protein Ql (U) 2+ Abnormal NEG [facility] Comment on above: Performed By: #### M G, CBC, BMP #### [employer] [address] [place], [place] [phone] Client Experience Consultant: Wenceslao Rose MD Spec. [place],Ur 1.023 Normal 1.005-1.03 0 [facility] Comment on above: Performed By: #### M G, CBC, BMP #### [employer] [address] [place], [place] [phone] Client Experience Consultant: Wenceslao Rose MD Urobilinogen,Ur Normal Normal NORM [facility] Comment on above: Performed By: #### M G, CBC, BMP #### [employer] [facility] [place], [place] [phone] Client Experience Consultant: Wenceslao Rose MD Urinalysis with Reflex to Cu ltureon 10-16-2022 Bilirubin Urine Negative NEGATIVE [facility] [employer] Color, UA Yellow Yellow [facility] Glucose Auto test strip (U) [Mass/Vol] Negative NEGATIVE [facility] [employer] Interpretation and review of laboratory results Abnormal [facility] Ketones (U) [Mass/Vol] MODERATE Abnormal NEGATIVE [facility] Leukocyte esterase Auto test strip Ql (U) SMALL Abnormal NEGATIVE [facility] [employer] Nitrite Auto test strip Ql (U) Negative NEGATIVE [facility] Protein (U) [Mass/Vol] 5.5 mg/dL 5.0 - 8.0 [facility] [employer] Protein (U) [Mass/Vol] 2+ Abnormal NEGATIVE [facility] N [facility] Specific [place], UA 1.023 1.005 - 1.030 [facility] [employer] Turbidity UA Cloudy Abnormal Clear [facility] [employer] Urine Hgb LARGE Abnormal NEGATIVE [facility] [employer] Urobilinogen, Urine Normal Normal [facility] Urinalysis,Microon 3 Casts 5 TO 10 HYALINE Normal 0-8 [facility] Comment on above: Result Comment: Refe rence range defined for non-centrifuged specimen. Performed By: #### M G, CBC, BMP #### [employer] [address] [place] [phone] Client Experience Consultant: Wenceslao Rose MD Epithelial cells LM Ql (Urine sed) 2 TO 5 Normal 0-5 [facility] Comment on above: Performed By: #### M G, CBC, BMP #### [employer] [address] [place] [phone] Client Experience Consultant: Wenceslao Rose MD Urine RBC's TOO NUMEROUS TO COUNT Normal 0-4 [facility] Comment on above: Result Comment: Refe rence range defined for non-centrifuged specimen. Performed By: #### M G, CBC, BMP #### [employer] [address] [place] [phone] Client Experience Consultant: Wenceslao Rose MD Urine WBC's 50 TO 100 Normal 0-5 [facility] Comment on above: Performed By: #### M G, CBC, BMP #### [employer] [address] [place] [phone] Client Experience Consultant: Wenceslao Rose MD Tobacco Screening.on 023 Adult depression screening assessment No [facility] [employer] 250 DO Work Phone: Fall risk assessment a) No falls within the last year [facility] [employer] 250 DO Work Phone: Tobacco use status CP b) No [facility] [employer] 250 DO Work Phone: Tumor Staging Formon 022 Tumor Staging Form [id number]:127 Normal [facility] URINALYSIS, REFLEX MICROSCOP ICon 05-06-2022 Bilirubin Ql (U) Negative Negative [facility] Clarity (Unsp spec) Turbid Abnormal Clear Estuardo [facility] Color (U) Red Abnormal Yellow [facility] Glucose Test strip (U) [Mass/Vol] Negative Negative [facility] Hemoglobin Ql (U) 3+ Abnormal Negative [facility] Ketones Ql (U) Negative Negative [facility] Leukocyte esterase Test strip Ql (U) 75 Danilo/mL Abnormal Negative [facility] Nitrite Ql (U) Negative Negative [facility] pH (U) 7.0 [pH] 5.0 - 8.0 [facility] Protein (U) [Mass/Vol] 1+ Abnormal Negative Cl [facility] RBC LM.HPF (Urine sed) [#/Area] /[HPF] Abnormal 0-3 /HPF [facility] Specific gravity (U) [Rel density] 1.008 1.005 - 1.030 [facility] Urobilinogen Ql (U) Negative Negative [facility] WBC LM.HPF (Urine sed) [#/Area] 11-25 /HPF Abnormal 0-5 /HPF [facility] Screenson 03-30-2022 Screens [id number]:127 Normal [facility] Ambulatory Visit Summaryon [...] Where: [facility] [address], [place] [phone] Medications What How Much When Instructions Unchanged [...] including vitamins, herbs, eye drops, creams, and vxpn-snr-tfxiwer medicines. ? Any problems you or family [...] tells you to take them. ? Taking qziu-isi-zczchkf medicines, vitamins, herbs, and supplements. Tests You [...] walk around (more content not included)... Normal [facility] Urology Office/Clinic Noteon 03-29-2022 Urology Office/Clinic [...] Yoko Leyva Jr., MD\.br\Date and Time Signed: 03/29/22 12:04 [...] Impaired glucose tolerance test / SNOMED CT 911899467 / Confirmed BPH (benign prostatic hyperplasia) / SNOMED CT 787344676 / Confirmed Calcaneal spur / SNOMED CT 83874705 / Confirmed Gross hematuria / SNOMED CT 843545534 / Confirmed Hypercholesteremia / SNOMED CT 40465203 / Confirmed Hypertension / SNOMED CT 7603637353 / Confirmed Lumbosacral spondylosis without myelopathy / SNOMED CT 79272247 / Confirmed Macular edema / SNOMED CT 68458346 / Confirmed Bladder mass / SNOMED CT 7983256575 / Confirmed Myasthenia gravis / SNOMED CT 702654294 / Confirmed Radiculopathy / SNOMED CT 310294840 / Confirmed Obesity / SNOMED CT 2546693684 / Confirmed Obstructive sleep apnea, adult / SNOMED CT 6985765551 / Confirmed Obstructive apnea / SNOMED CT 537180136 / Confirmed Pulmonary embolism / SNOMED CT 30404481 / Confirmed Histories Past Medical History: No active or resolved past medical history items have been selected or recorded. Family History: Cancer Mother Heart disease Father Procedure history: Cystoscopy and transurethral resection of bladder ([id number]) on 03/03/2022 at 76 Years. Cystoscopy ([id number]) on 12/27/2021 at 76 Years. Transurethral water vapor ablation of prostate ([id number]) on 02/16/2017 at 71 Years. CE - Cataract extraction ([id number]). Cardiac catheterization ([id number]). Neck Surgery ([id number]). Comments: 02/17/2022 14:13 EDT - Davina ROMERO, [...] results Radiology results ECG interpretation Condition Plan [place] [employer] Anesthesiologists (ASA) physical status classification: Class III. Anesthetic Preoperative Plan Anesthesia: General. . Anesthetic plan, risks, benefits, and alternatives discussed with the patient and/or family. Risks discussed: nausea, vomiting, headache, sore throat, dental injury, serious complications. Patient verbalized understanding. Communication: face to face with (patient 5 minutes, Pt educated on the importance of smoking cessation.). [facility] Comment on above: Result Comment: Elec tronically Signed By: Jhonny Fuentes Jr, DO\cosme\Date and Time Signed: 03/23/22 12:18 EDT Coding Summary.on 03-14-2022 Coding Summary. [id number] Gh0bWw +PGhlYWQ+FE7DMRFjK90ulPIda B5WZ3hJNR6TOUHGMGSFXA2NOD1 rlTL8UEdrF8SfufBi MycksNGrGE89LFs4JQV2gDwuUC jdgI4ymFYbB9d4FdReBN54yD45 FWcwOSYdEoK1FmCnzombcACb K0ttTvEwaVOmJge+PHRhYmxlIH aaLGFrYEacAMSaIqWsvRgrYC3f No0kBSTgOSIcmIkyoBWwQrQl i5gkGSMdEIjdXB7zmAwdT6PexJ F8XFUji5b5Sr31rXL+PHRkIHN0 hGlwIVyks567MyHyg6yoOYJ8 yJKvRIcgLNY7D71xt7R1AZIsZZ WuRTB9kCC6fS5uiFsutrbdP9Ak lROnVuS7UYP3aDYfqU3smHkb vecxnQ9iVvr+S05SGO8GJIDOHD 0CCuy7A2TlCdqxhWG+EB97NXMp JM10hNPdfOPls3ljzHu2SwHt NDRzBTJ0gGstWQpvm7FjCUHtM3 7zoXEox4S6FKDieQsgxTZiAtDv aNW5fV5zJShgwmqdb1undarf Ioxlu3wceb11oL18D51lNHexSX RrYBB9ORSpKQWjhEfway4ybL7o Ii8+ZRdmk0rmr1uozYv6WzZe BOQhboScvRohMQB5d0ZnCw08T1 GgeKfwa8DvOvf4dh80oGOnv1P6 xQC7CZwuTEVplQ6oTJqsWmL9 MSIwTvFhnN58bWXcXEbpVr8rqA dlgTauNB6oNQSuesmaZLTfiK9i NRRoyVOtyUuzIT8kMQHobwns n912ZkSqWGF1FHJytSDlF2ByrK 5yGqDkTZWpLHYpI8OitIRcSCod C979OTuiCgH4SUQwotBjQ1Qw BEYmqNwuTyB7o1G9Uu3Vo1Tnsa vbJIX9OWfjWMN6CyI3HmLrGaZ2 D2UcNnk5HVOsaFwxPO0pR2Jt ONPhpiygdawljKJ6ALEmYBVjfO 24aJHjNSleXl9oz9P7s596RCIf IFLypJ41Yi3deDzgTKFxqXZG bO1tkzzsi3coshclUmEcJRArQV l4PNs7EGHeaPfgExBkLMG2RdY2 XWI9cFApmJ3hnIzutbutqJ7d Oyc+C36beT3mTZB3CIC3geboUF LubaDuBH06WF30R8MfSkknqDRi bGU+UHKgemQpwFdhYP2aFgNr b8xgd9VeJIntB8VfRNPwLEigEw e7VIOrPRJ4mUX1xO6aTZLcQNgb e0X6kCH7H8EalwImdx1cl4km WVHdLVgaE50guXYxg7I8ENXphW U0OPStgAxrXlQugF26Nhn+PGNv sYuss4TpPfcpx1ktt1ayyPx9 KdSnCTQruzEovKkbSWR3z8CzVu 48M77kVTmdKLSxENLrXLGsJQAg tOrmtc4bhN2uKv5+PGNvbCB3 qYW1uV7dDFRhZmH1QPosW589Sj QkpUKoBjmnh6fdp6jeqEc5VhFg SJUlgsNruKvpCUQ0m8HeRe91 F02uCWnpZUNgTSDnRJFgUUOfsQ ydmd4chT9eNl2+LV0ul9jrai41 cE13tCF+LMNkWHD5rZaeOMsw IOKjsG7fWTbyUyQ0GQItXlHhxV 38mGUuBPcyGl3iwSmmuAlfSW9b LDWhffabs460JnHcz7ekKLYw wZWtZJbuFYJ0F07jw4H4DFKvAL RpNRN0dWI3dN2hsSoafjoahWWz eQxtfpEqxOkuJRhuQNarS314 IHRvcDsnPlBhdGllbnQgTmFtZT p4W5PxUgu1BZKhsFirTG2zeYZd EZueBw7yeDxurHciCW5pIWYp vpazu571PcLzz3ajEDFjpJGzYH xzYIQ3R07cf1G0CUFwYOAdOWI7 wLO0aI0zgLenwjkqfQXziNyn jmZqrAfcXMliPRqyQ001FANhrX ynEnGqiwOyUZPpiQX6HK82SR94 rWBoe8S7kEO5U1WeKFCecshz svoxcFX7NPEjIKTcnM04Ui9ccD eiKf2wOPHuXWD1RCPgvBRzT0Sa wD2jPrIwTUElQSHbT8ErlAWf LZleG396AFatHqC7ALAekhKnT7 XvVJKnqCumHcA5f8O0Fd4SM8U5 OJ08LM74pOHjo9O8kUY0E6Uc TFEukxysnvdngIK6CPVdDLQyaA 31Jm7nfMbaQc2fWEWbGBA7UISa eDDuF1VzvA2eFnUdWEViXXNw L1SmjGCvIJnxJ482QZacVvL4SF KqiqUqG1SfGQMfsUhtMoR6o5I5 Oe8LJIw8XF26LT87aTVfq7A0 nOV1L4JpMRIatxnjsubeaYS3OZ YeOGYdhI76Iy0nnDucWb2aRPKt CWD2XYYohLDhU8KfnU5mVwMy KHLsDAZvY9QxqFDrWRovB445FP cjAdH2YHEhjuHpM4BeSGMsfLgb OeC6k9E9Wj7UYWHnNP87CHP2 cMC9LO87NB15P0ZyLinanQJwvQ U+PHRhYmxlIHdpZHRoPScxMDAl JvHuyPbzQR1zEl4mBRPhOJAg yVrtoQVsYbOab5gmLNIbMSzdBD 6rpIrpL0VkfRT3VTStz6b9Ds71 G47eR6TaaLU+MYJisXQ9jLO6 qM4hBvBlKrE3RGpwC823QfJzfH CdTqylp3zjp8ctiOq9PvV8MVNi tkMbgHylEUH6u1KcWb90K89p IHdpZHRoPSIxNSUiIHZhbGlnbj 8glD9rBq5+EJBusOQ0eDE1dO8t MfMzBzP4ARjhA922FmYinGLq Ncrxv7vng9hwyKw2MaNbVUDfgv TmaStaKNX0r7QeZx43P3VgyFqp t2MeHks7kc32nUSja2A5jPG3 K3MfDSZzirxveWElrHuaVQ4uVR ZjbgjtWCOdaD1zXAYnG0p6SkRa XlP1BRzyF5YdujX9DVDmbUHi HZreDKM7D17qv1C3MAQsSGRfKV D5jMT9lU3cxAtpdnazuAJpmZyr ihMezQftNPlfABcuI386AFBf jZrjDVSmkA4xLGKngNYmvQciNZ 3dTCHijrctTnOTW35QStjgM5cO FgiNNiMIKK45YC13sKCcv6R1 fAK0W4KlVMWldjvlsahmxJH7CH NvGTSeqE02sYBfJRxfUy0bi3J9 n547UMAwCSMliK21Ig1zpVzo GILmyEMZaC7stwray9qaxsslGj ZfJCWzBGv4AJt8DRWxlBbtPmVo TPB5YnY4NCD1rEDxkB4ofDbw uxcylT1sGxn+EPPxCKXaVUi1NW wvdGQ+ZPHvAXB7qWvfUMfgHUTs cX8rAVYsT7c1CgHwAfU0HZtk N4GkLKNjaagbYz77tG8rQiAdNi V6UQrwN5ZimpI2ZVEarKXvWUjc QDF4Q33gq8X6HKWwYCDwPUH3 aKN6jA4mhBfiojzkrJHlpIxsjs XeoQumVAmlPJnwL065TGYecKoc Zrq4PBihXSOmRY68LS68cHIe t8J9zCA5Q5EaYYWkyxumsfsopQ R6KCCgFXWfkV11wWPkITbvYs1f k8Y6m689YGWgIEQwwM18Kh7f oDotJKYseKFNdL0tracos8ezer cpYfGzAGCzDHh4LYb7AUSgcUpq ZuMlHCH3DsF5QHH1sFGpmT8y jJncljztyA0bUmr+TWFsZTwvdG Q+SMAcHHC9hQhjNHqeKUSvpH4m WMWyZ3g9WiIiJnZ6ORtkO8Gs BJOcqwabOa05fL5uBxVaGlA9GK xnU6LkxhF7WUZusSEdMPeqDOU2 B66ov4B7GCDwRGOaNUK6vIL3 tN7nrXirffdtcHIjqYnfphAmbM aeTSlmGQvcY485IVUnxFptWpYk HtNqESKphavtQ5CoETYAPVyg O8AsL8XrlIfknKX+BX63xg57H0 GeQswlNrl9ERAwLHP8qPR8yH8e VFHvSOmol4H5tGE0L7PuznFx xe0tq5dcWLGuCIthP34fqBGud5 K8EGLofCN4CDXomUpkKqFszU06 Oyc+TJNsaRpyv1SzTmrax3bd x0wdxNk9AkBfMHDngrSpiSqtPE X8n0BbVb26L77sFXajOJMnTWTo AQCpGNXjsNeenr7liF4vDl6+ TEXzkUM5vEY9bW0xOzKpBvG5BB nxB374DjSljMBbHokoy1bae9vc kGs3XbPtFPAkkwXvwSspXDR8 b6IgKy31M9NmsWjgl3KoFgh6sl 07gSUax8I3yNW0Y3CtHOVxdnss fZCugRogQR4fIAQenrseRPPk jE8yHZPyJ2e9IrPxDmH7UBnyO5 VbanU7CQWlcRTwBQYlcIIDgG8a ylkqk4fkcofzRtRkKVErKZi3 NFc7UYSpyLphXmMcGCZ6MwY8AF O2dYKmcP4bvObaanjmyW8fDvk+ YFi8f0lgoXCkKI5reVR3JI94 IO69oIShz0Q9nXY3G3OlYGLhqg imvfkifJU0XYQpURXtqC10Uk6s mAtfEf1yLEIiOYQ2KTWnzNDk L2OdvY7bHrZuLRUkHZIqP2LqzQ WwGVwlP450LUwoQlS8CBWxddMl F3AfMFPrlFarCyI9l1F0Un2A TL93QF34DO25jFFgs4X0iMV0K7 QuZCQfaomkltlaqYP2SNEhDOYb hE18Dl4chUqiCi6pBVPtDJG3 ZPTkpQEsW7FmzY0bAfSqHUFjSU VdN3BwrTYiNOazJ245MBsmEnP3 IRTnlqYpQ1HiPZJmqNuoAeS9 c6R7Be2AZz65OO73ZX82pWGqr2 B2pAM6Q4FwITBmvqvgjlnguRW1 NWRnCAFpoB64Er6ovPsiQp1s IWTvYQI4QLFuoMKjV5QnlP7zZk NgKFKoNQTaT3DmkNHoEQfuL180 DImuClG8HYTdvlZwC5BtLAZc hZeeNlO7i2C0Dp0QWAxekiw3A9 RkPjwvdHI+PE84VYQtKI49hODz wQBbd4qwqFe8SxZcVXLyDCK9 eWxl (more content not included)... Normal [facility] Progress Note-Physicianon Progress Note-Physician Patient: TAURUS GARCIA Age: 76 years Sex: Male : 1945 Associated Diagnoses: None Author: Jhonny Fuentes Jr, DO Postoperative Information Post Operative Note: Post Anesthesia Care Unit. Anesthetic utilized: General. Health Status Allergies: Allergic Reactions (Selected) No Known Medication Allergies Problem list: All Problems Impaired glucose tolerance test / SNOMED CT 486085477 / Confirmed BPH (benign prostatic hyperplasia) / SNOMED CT 986442896 / Confirmed Calcaneal spur / SNOMED CT 82767873 / Confirmed Gross hematuria / SNOMED CT 657207602 / Confirmed Hypercholesteremia / SNOMED CT 42855461 / Confirmed Hypertension / SNOMED CT 1451478018 / Confirmed Lumbosacral spondylosis without myelopathy / SNOMED CT 22715050 / Confirmed Macular edema / SNOMED CT 93490413 / Confirmed Bladder mass / SNOMED CT 4939566354 / Confirmed Myasthenia gravis / SNOMED CT 157189165 / Confirmed Radiculopathy / SNOMED CT 605259713 / Confirmed Obesity / SNOMED CT 2596071724 / Confirmed Obstructive sleep apnea, adult / SNOMED CT 4169399892 / Confirmed Obstructive apnea / SNOMED CT 812307311 / Confirmed Pulmonary embolism / SNOMED CT 46591174 / Confirmed Physical Examination Vital Signs 03/03/2022 [...] Pressure 104 mmH (more content not included)... [facility] Comment on above: Result Comment: Elec tronically Signed By: Alfredo Pimentel DO, Jhonny Butler\.br\Date and Time Signed: 03/14/22 08:36 EDT H&P Updateon 03-10-2022 H&P Update [id number]#1.00CD:127 [facility] H&P Update [id number]#1.00CD:127 [facility] Outside Recordson 03-10-2022 Outside Records [id number]#1.00CD:127 [facility] Postoperative Documentson Postoperative Documents [id number]#1.00CD:127 [facility] Coding Queryon 03-07-2022 Coding Query - From: Analisa Salazar To: Autumn Molina MD, Yoko Hair; Sent: 03/07/2022 13:03:40 EDT ! Subject: Coding Query Dr Leyva, Please document the size of the bladder tumor- -Less than 0.5 cm -0.5 up to 2.0cm -2.0 to 5.0 cm -Larger than 5.0 cm Thank you, Kimberlee HIM Coding [facility] IntraOperative Documentson 0 03-07-2022 IntraOperative Documents [id number]#1.00CD:127 [facility] Consent for Anesthesiaon Consent for Anesthesia [id number]#1.00CD:127 [facility] Discharge Instructionson Discharge Instructions [id number]#1.00CD:127 [facility] IntraOperative Documentson 0 03-04-2022 IntraOperative Documents [id number]#1.00CD:127 [facility] IntraOperative Documents [id number]#1.00CD:127 [facility] Main OR Intraoperative Recor don 03-04-2022 Main OR Intraoperative Record IntraOp Document Type FT Summary Primary Physician: Yoko Leyva Jr., MD Finalized Date/Time: 03/04/22 12:28:36 Pt. Name: JOSETAURUS/Sex: 1945 Male Med Rec #: [id number] Physician: Yoko Leyva Jr., MD Financial #: [id number] Pt. Type: A Room/Bed: AS04 Admit/Disch: 03/03/22 07:42:53 - 03/03/22 13:20:00 Institution: [...] Entry 2 Entry 3 Case Attendee Autumn Molina MD, Yoko Kong RN, Zuleyma Alfonso Role Performed Surgeon - Primary Loan Services Professional - Primary Loan Services Professional - Primary Time In 03/03/22 09:59:00 03/03/22 09:59:00 03/03/22 09:59:00 Time Out 03/03/22 11:23:00 03/03/22 11:23:00 03/03/22 11:23:00 Procedure CYSTOSCOPY TURB(.) CYSTOSCOPY TURB(.) CYSTOSCOPY TURB(.) Comments precepting orienting Last Modified By: Zuleyma Martinez Leanne M Pierson, Leanne M 03/03/22 12:03:26 03/03/22 11:39:52 03/03/22 11:39:52 Entry 4 Entry 5 Entry 6 Case Attendee Masha Cedeño CIRCULAR KNIFE MACHINE CUTTER, Lydia Rios CAA, Jessica Ceja Role Performed Scrub - Primary Scrub - Primary Anesthesiologist Ingot Caster Time In 03/03/22 09:59:00 03/03/22 09:59:00 03/03/22 09:59:00 Time Out 03/03/22 11:23:00 03/03/22 11:23:00 03/03/22 11:23:00 Procedure CYSTOSCOPY TURB(.) CYSTOSCOPY TURB(.) CYSTOSCOPY TURB(.) Comments precepting orienting Dr. Fuentes second helper Last Modified By: Zuleyma Martinez Leanne M [...] Dilan ROMERO, Radha Velez, Zuleyma Martinez, Masha Cedeño, Francisca CIRCULAR KNIFE MACHINE CUTTER, Lydia Ceja, Gabriel LE, Jessica Nichols. Time Out Complete 03/03/22 10:05:00 Outcomes Met? [...] WITH MYTOMYCIN Primary Procedure Yes Primary Surgeon Autumn Molina MD, Yoko Hair Start 03/03/22 10:23:00 Stop 03/03/22 11:16:00 Anesthesia [...] and tissue Entry 1 Skin Integrity Intact, [place], Warm, and Skin Abnormality No Dry Outcomes Met? Yes Last Modified By: Zuleyma Martinez 03/03/22 10:42:49 Post-Care Text: The patient is free from signs and symptoms of injury caused by extraneous objects Patient Positioning FT Pre-Care Text: Identifies physical alterations that require additional precautions for procedure-specific positioning, verifies presence of p (more content not included)... Normal [facility] Main OR PACU I Recordon 02-18 Main OR PACU I Record PACU Phase I Docum ent Type FT Summary Primary Physician: Yoko Leyva Jr., MD Finalized Date/Time: 03/04/22 07:47:44 Pt. Name: JOSE TAURUS Nevarez/Sex: 1945 Male Med Rec #: [id number] Physician: Yoko Leyva Jr., MD Financial #: [id number] Pt. Type: A Room/Bed: [place] [address] Admit/Disch: 03/03/22 07:42:53 - 03/03/22 13:20:00 [facility] Pre[facility] Documentson Preoperative Documents [id number]#1.00CD:127 [facility] Preoperative Documents [id number]#1.00CD:127 [facility] Consent for Procedure/Surger yon 03-03-2022 Consent for Procedure/Surgery [id number]#1.00CD:127 [facility] Consent for Treatmenton 02-18 Consent for Treatment [id number]#1.00CD:127 [facility] Inpatient Patient Summaryon 03-03-2022 Inpatient Patient Summary [address] [address] [facility] Clinical Discharge Instructions PERSON INFORMATION Name: TAURUS GARCIA [facility]#:[id number] PHYSICIANS Admitting Physician: Yoko Leyva Jr., MD Attending Physician: Autumn Molina MD, Yoko Hair PCP: KOMAL SCHAFFER MD Discharge Diagnosis: Malignant neoplasm of overlapping sites of bladder Comment: PATIENT EDUCATION INFORMATION Instructions: Post Op Patient Instructions - FT (CUSTOM) Medication Leaflets: Follow up: With: Address: When: Yoko Leyva [facility], [address], [place] [address] [facility] (1) Within 2 to 4 weeks Comments: Reviewed pathology report and plan exudative treatment. Call for any problems. Call for followup appointment MEDICATION LIST New Medications [facility], [address] [place], [place] [id number], [phone] cephalexin (Keflex 500 mg Cap) 1 Capsules [...] GARCIA /Sex: 1945 Male Med Rec #: [id number] Physician: Yoko Leyva Jr., MD Financial #: [id number] Pt. Type: A Room/Bed: [place] [address] Admit/Disch: 03/03/22 07:42:53 - Institution: Case Times [...] Signatures Signed By: Zuleyma Martinez 03/03/22 12:14 [facility] Operative Reporton Operative Report Patient: MARGRET GARCIA Age: 76 years Sex: Male : 1945 Associated Diagnoses: None Author: Yoko Leyva Jr., MD Postoperative Information Procedure: Cystoscopy with transurethral resection of bladder tumor, instillation of Mitomycin-C Date/ Time: 03/03/2022 11:30:00 Preoperative Diagnosis: Malignant neoplasm of overlapping sites of bladder (PCH12-HF C67.8, Discharge, Medical). Postoperative Diagnosis: Malignant neoplasm of overlapping sites of bladder (WFI16-PG C67.8, Discharge, Medical). Performed by: Autumn Molina MD, Yoko Mcdonald Findings: This patient is a 76-year-old male [...] and there was no bleeding a 16 [address] cath was introduced. 40 mg of [...] of bladder tumor, instillation of Mitomycin-C Yoko Hair. Jr. Leyva MD, FACS . Specimens Removed: Bladder tumor. Prosthesis: 16 [address] catheter. . Estimated Blood Loss: 5 ml. Medications: Mitomycin-C 40 mg intravesical instillation. Complications: None. Anesthesia type: General. Normal [facility] Comment on above: Result Comment: Elec tronically Signed By: Autumn Molina MD, Yoko Hair\.br\Date and Time Signed: 03/03/22 11:36 EDT Outpatient Surgery Discharge Instructionon 03-03-2022 Outpatient Surgery Discharge Instruction [place] [id number] Patient Discharge Instructions PERSON INFORMATION Name: TAURUS [...] Follow up: With: Address: When: Yoko Leyva [facility], [address], [place] [address] Business (1) Within 2 to 4 weeks Comments: Reviewed pathology report and plan exudative treatment. Call for any problems. Call for followup appointment Pharmacy Information: You may receive a survey from [employer] asking you to rate your care experience. Your feedback is important and will help us understand what we do well and how we can improve the quality of care we provide to you, your loved ones and our community. It?s an honor to serve you. Thank you for choosing [facility] HERE ARE THE MEDICATION CHANGES THAT OCCURRED DURING YOUR HOSPITAL STAY New Medications [facility], [address], [place] [id number], [phone] cephalexin (Keflex 500 mg Cap) 1 Capsules [...] [place] PATIENT EDUCATION INFORMATION Instructions: Medication Leaflets: [facility] Patient Education - Texton 0 03-03-2022 Patient Education - Text [facility] Outside Recordson 03-01-2022 Outside Records [id number]#1.00CD:127 [facility] Formson 02-28-2022 Forms [id number]#1.00CD:127 [facility] Coding Summary.on 02-24-2022 Coding Summary. CD:[id number]:[id number] Gh0bWw +PGhlYWQ+QR6LXRPaF87uiDAdz T5RU4qIJW1USSOLCQMXZE8LBJ1 jzNR8PDczW8EklpKi GbbiaDDxGL25SJd0PSG0tIloVS mreG0rrQXgW9h7McMxAC86yL74 NUclBCAqCfG3UvDodydpnGFh U6zhXkSvcKKvFap+PHRhYmxlIH bgMSKjQSmpJPOzQfEchIfcED2h Ay6lBDQwMWLagXbnbUAzLcSc n6osAXXuYBahWC3nsPsqN1GqgH A0QOJle0i3Rj42uZX+PHRkIHN0 nVcbOMacw495MrThn7lgKVW9 aZWxYXcyEMY1D76rb8S2HFQvYS DmRJO2zVZ5tB2hlFouxzrnR5Qd gKBhBpA0YIF2jTXzkE3pePnq chzggJ1kVqv+U55ZTM9QTWOIID 1ZHsx7N4AcMdtozDO+GW60PQKa TD54vEEbbEHfv8iurCy3YrMf SJUhIVB4fYuhLRxfm3AlZPUhO2 5gpDCie7Y3TKPkgDlbmCGpGoRw uNQ4cK6yWCuvszork6ogwxzb Ibvqq6jlhd67zM51S06wXBcwJL MtRAX3BZNxLLPvwNvoch5zkV5q Ii8+YGdmy7rdb5vowGs8AxMb DLVaygManKlgXKJ4u3PfOi26D2 BqlQrxk2ZmFbw6jn84jCJwt2A2 rLU2CWujRJVypH4hSKezKcA4 WNJdBmBjcM63qNAtILkmIi2ebW tttYwbMQ7kGNXucggxMSSmgP2g FWAxsLCtaUrdUA3eHXLgvpyc z880OvNxKRL2HOUqcFHgT2LymM 9mYqKbNJUxPRCxX0AyaRPrGGxp L299APvvWcH4WQLnfqBxE3Gu WXKsnQtwKiI8l5O4Wa6Xe6Tspw elNCR1EKdeYMO0LyV9LvJrRsK6 B9NiIjg6TUIbnDvuUO6hJ1Hl PYCfkssvsybxiOG6NWBrPFApaZ 51vCFyAYveWw7gc4V4r890FICy OECadA15Sz5xeJksAIVknYVG jM7csbmyw8ipeqtmUmLkPQEaAO t4YTd5EYOjiXbgSsSqTTG4GuA6 AJC1pESlaF2niGgjxayahP8n Oyc+X76ijA6xKHL4LSG7hrmfCL ElkdVzHT04JJ88V6JpAhvhjGVm bGU+VDFiisTkgZyzKV2iUvHz i1idl8VjCEswW5CkMVYbMAjkNw c0HPLdWWB1dON7eR0aCDIaVQyk o1U0yBT2B1NsgbZjrw5ce7au EXGqEKniM35wdVAko1Q8OEAooA W0FKHopLtaTnXvnH79Vhf+PGNv qIijc4FzJsttz6scc9gnpMe6 YdDiYOThdfFozAlwKYA2n0PgQo 80C13xKOrbNJNxZCPhDVFhXBCi eLyhhm0qaO9kZg2+PGNvbCB3 yXW0rM2dFGVdAbF1PCmrR253Np NykOYgJtxve5mba0jxbVb2NmEj TBKhhyCacRjhPFS6t6UyPg86 K25fSYzzXKQnRUMcVDWyAHGvhV ktjg2zsI1jNq6+GN0bs6rnyb58 kJ21eIQ+RDGyFYH4tZjgIGgp IPHitB6sGVqpCbM0WBLeDbLmoL 54cQSzOWnhTr7yeArlpDwkCL4o XCDocvhuy888HzKvp4riJRXk jWBdDUcoJMM6U90rq1E4NNZiKS DyKWM5vFH9aW1twNyotzvkpIJk sEriruMmxKlkFVwsCFiaL664 IHRvcDsnPlBhdGllbnQgTmFtZT w1T0HcEtq4YFJucIqsFL6miAKm XWcyZk4zvRgfnMtnGL3tJQOa iymzj169VsHzp1emRXRycOIeWT lkQJB5W07mz3P3SGZjSQYlTYN3 oMQ8mT6kiLzcaiuwrANjgSpy maHxiSwcQVeyROtoY057POCqzZ pcFiEednGfYMGepJY0KB32VM64 pQKbt6S8oSD8V9UjLQPwbrhs elcasWA4WRJfTKWjfX72Xz6xcT hwIg3gGIKpTTD1KTHmfVOnK2Fa uY8xQxWbFKDzZZYaO2YmsAFm LLvuZ786EVtcRuZ3RWGygfAhE7 MvXWFhgZoeElO6j2R5Ty1HC0Z4 UI39IU39zCHhu6F2cRQ0L2Lz TFYjutexmavavXO8IUGrVVSdzM 00Bs3nvAmpQt1bOFXuUVI1AEPf tFNwS8NeeE4fKdYhJAMwFYWx B8SkqHEfPUjqL880KFzcBoJ9XZ OpgfLcZ5FzDBWauJieYpM1c5Y2 Lt1UQKb2BG52KS09nRIza5V5 cFZ0X8FwJIZebukodwryeMK2TZ PoGJDfgI60Ls7hjMtmHm1tOJAf URU5LUBylHGsK7WegT0uHxBb PEJbBXWhE0YbgYMjEMndK411WX ccVxF7HWCcswXlN4NmLQQllPgp EcF0u1X1Aj9GNLNnRG49EIR5 wMA7JU44PO39U8SjWsbdbIXjzP U+PHRhYmxlIHdpZHRoPScxMDAl KnFgvUgzUG8gDe6lMLAeIHOg tJewtUJhRpCfm5ulLHTeRVdxBY 4ftChuE6OmgMY4SUErk2y7Zk56 M75dE3PsnEZ+DFBkmCE5eNL6 lK5yJuSmNdN1JRayE558VwJyxI OaPtzmx9nmh2dpbKi2NbG5WPVi gmLxgWwoUSD5e5VfGv43T05t IHdpZHRoPSIxNSUiIHZhbGlnbj 9rdX0zWs0+MIFgxHS7eTY1sD1w RpToIpH2WHopF639RwJlgMGj Ukbpx7don8fcxGf1ObJoUWGdrg DrgXfhFFC9h9LqGo39L2FwmMdm a3ZrJmg7hk63gNGhu9O1zYT4 J0BeTMYmszlwkARjnKpcAR5kHN JjdqrpJIFntY5xJFNtW3v6NwPp OnM4BOzpO4DorzI2GBYlxNUl VNehKNJ3E67so9J8RCZxCDHqOA D7kLV6qD6fjHinlxnkkGLzbYnu qzStnVtlOGynQCnmQ520FGGh tMdlFWBttG8nVRAovWVrkBldQT 6rEHUoxigdAvXFB98TRvxzR5hK AumLPdILMP39HW46bGHpu1I4 lNA3A6MyJXWiawbcldiiqRS0SM PkNLSbyP75bPTcLXbmTq2jc8Y4 s612YZMdPJBjhE92Vv9hoAzo WZRpaCKQtY0tgjrww5wppxmmKp LkJEJzUVs8MHk1XFOthUneXiJl CXZ5YmT2HJA4lCPrsE4jwIlr iswznL4xNve+OZKtFBLhZXl9CX wvdGQ+RKZqLKC3mJwnBXdkBPSx rR9wYGCgJ4b9JyYfDrQ3BQqs V4RaZMPenaqcWx44tB1eAbVgKq M2MMkbF7MazyA6IIDoyXAzNWgz HNK3N73jn5C7BBYuKYUxDIF3 tQP0uM0ftAjmaopihARzpFhkuj OuuKttTWafRUegI238ERZshYsq Xip1XBbsFFBxWR33UP60zGOw j6T8uGL7J2KtGAXbifyhxitwtB F9FJYaPIBbbM67lJDoIJlaLl2p j0T7n933JTZdCYCrqI53Ea7u oSdmJLJnwGSArM1rtytju0zvga tqEzIsMYFjHHl8TPm7TFBnvAcc FxRhHYH5ImR1JJD3jDRslW7u hYcfckqmrI8tZia+TWFsZTwvdG Q+THTpBBH5wEcwXDueMQPkcO1v JZLcY7l6CqJrZaG0BUavX8Km EQFxximiOc23eG2iIvPpWnT4VR yzE3XezhM3VMHdtPDhYMlqOIR0 N77zj5T5XOLpJJAmKGF2zGV2 gV3xfDjzanlsfORsnOdehuJcxX pkQBztIVxzK592RUTusSqpYf43 aPBkmZnxuiJ4R9UhBnubgUU+ WN83OBQjPM43dHAvuUXgq3fwmC x4VuOcESYzEHL3oZemNYxyn0Dw DEVlV71hsXLin0G6YPJuaAae kJLyUaKxnQT7wJ8cPJywstdel8 efpqaoKxrdn0jrzn39oW94Q87n IHdpZHRoPSIzMCUiIHZhbGln nv7gcQ0vCf8+SBNewHL0yPG9hC 0lSyAiDlL8DZfsS637BhRwpEUe Yfurz6oqg8inbEt9OvBqHLIj xqDqwEmuJRY3l1OhUw57X29gUZ syYQHsAJIeWLQcTFEckTmydj1k bR3uTh3+ZN2nm7dexx76iO04 dHI+WMYmIZO9vWdrUEncECKynM 1mBXmcMdY0PVAhEyGkdV95xTGw KNirUy6wkGkvoBkuGN7qPORw eipno291SaKzt1klYTHbhGVfMO rvFLM2Q30hj9H3ISLbLYDcHJG4 hQS2cA3vnAswxkwfbVSjvWzm psYkgTrbNZofPIozO135ZGDprJ wgXrHgpOAzE3dyreDFBK6oZsmm dGQ+OPRfVOG7eRwlQZooAVVy fQ3oWMRpE0p3UlCfKoZ7KDnjI2 DtwsC9JGApoWIhXZWojOHCxL3m ixcqh4vfolusWkYzEKPdRRd0 ITl9JGSclIukKzMjZMD9QkM4LI S3nGAfoM1rnLygtkthwT5kMsl+ RklOOjwvdGQ+LEGeYSM7vRmi DXddZTTyvE4hUWHdR4k4TkYdWh P2ZDwnI8QnnoR6QKWdfMZoALGl mDRVlY0mcsqpf8ijprkzJfZv VDPkYIe2XWh3KQYkyZinUhMqOE E9YiK6QRJ7fABntN4daEzaxbwt lZ1dCju+TVJOOjwvdGQ+PHRk DUN9gUhoOCgzQZZgqW1aDRYiO3 q8QzBvUdZ7ILlbV0QxkoY7UCNj cJPoMUFkqXRDiJ8detwrn7pe jozuDwXzBLGdFBs7NVz2ZRBylV opVlJhSAN0AzY1DYK0fUExfE0v fGaoedrvgJ3pRzq+MMX2GIK0 TQ70KY48D4XqJvbzjJLmuJY+PH RhYmxlIHdpZHRoPScxMDAlJyBz lSfeBK3zYo6vGXJiDBWrxMwa cHNl (more content not included)... Normal [facility] Outside Recordson 02-22-2022 Outside Records [id number]#1.00CD:127 Normal [facility] Outside Records [id number]#1.00CD:127 Normal [facility] Outside Records [id number]#1.00CD:127 Normal [facility] C Urineon 02-19-2022 Bacteria identified Cx [...] Locations R1: This test was performed at: [facility], [address] [place] [address], [facility] , , [facility] Comment on above: Performed By: #### 1 [id number], [id number] #### [facility] [address] [place] [address] XR Chest 2 Viewson XR Chest 2 [...] M.D. Transcribed by: SANDY Technologist: PABLO Normal [facility] Auto Diffon 02-17-2022 Basophils/100 WBC (Bld) 0.6 % Normal 0.0-2.0 [facility] Comment on above: Order Comment: Order Added by Discern Expert. Performed By: #### 2 999612, 1630946, 15334825, [id number], 1465592 ####[facility] [address] [place] [address] Basophils/Leukocytes Auto (Bld) [Pure # fraction] 0.0 E9/L Normal 0.0-0.2 [facility] Comment on above: Order Comment: Order Added by Discern Expert. Performed By: #### 2 197837, 9616671, 89772104, 09210639, 2150208 ####[address] [place] [address] Eosinophils/100 WBC (Bld) 0.2 % Normal 0.0-8.0 [facility] Comment on above: Order Comment: Order Added by Discern Expert. Performed By: #### 2 912679, 2076897, 05968534, 34092447, 8730585 ####[address] [address] Eosinophils/Leukocytes Auto (Bld) [Pure # fraction] 0.0 E9/L Normal 0.0-0.5 [facility] Comment on above: Order Comment: Order Added by Discern Expert. Performed By: #### 2 255312, 2664634, 56430027, 79107546, 2192820 ####[address] [address] Lymphocytes/100 WBC (Bld) 9.6 % Low 14.0-50.0 [facility] Comment on above: Order Comment: Order Added by Discern Expert. Performed By: #### 2 491855, 0034748, 47175815, 79934952, 8027870 ####[address] [address] Lymphocytes/Leukocytes Auto (Bld) [Pure # fraction] 0.7 E9/L Low 1.0-4.0 [facility] Comment on above: Order Comment: Order Added by Discern Expert. Performed By: #### 2 813788, 2680567, 78698413, 22506861, 9942864 ####[facility] [address] [place] [address] Monocytes/100 WBC (Bld) 7.0 % Normal 4.0-14.0 [facility] Comment on above: Order Comment: Order Added by Discern Expert. Performed By: #### 2 428693, 1784043, 99599104, 78806869, 0553803 ####[facility] [address] [place] [address] Monocytes/Leukocytes Auto (Bld) [Pure # fraction] 0.5 E9/L Normal 0.2-1.0 [facility] Comment on above: Order Comment: Order Added by Discern Expert. Performed By: #### 2 335231, 6876906, 51863791, 76966650, 7528188 ####[address] [address] Neutrophils/100 WBC (Bld) 82.6 % High 36.0-75.0 [facility] Comment on above: Order Comment: Order Added by Discern Expert. Performed By: #### 2 493148, 2570802, 45879510, 22552507, 9584212 ####[address] [place] [address] Neutrophils/Leukocytes Auto (Bld) [Pure # fraction] 6.3 E9/L Normal 2.0-7.5 [facility] Comment on above: Order Comment: Order Added by Discern Expert. Performed By: #### 2 471525, 4488741, 51204291, 32751761, 2540877 ####[address] [place] [address] BMPon 02-17-2022 Anion gap [Moles/Vol] 11 mmol/L Normal 6-16 [facility] Comment on above: Performed By: #### 2 980130, 1669453, 95938222, 27198529, 8403623 ####[facility] [address] [place] [address] [place] [address] Calcium [Mass/Vol] 9.3 mg/dL Normal 8.9-11.1 [facility] Comment on above: Performed By: #### 2 232993, 7563687, 71810488, 72703218, 0416575 ####[facility] [address] [place] [address] Chloride [Moles/Vol] 104 mmol/L Normal 101-111 [facility] Comment on above: Performed By: #### 2 192065, 7108993, 83174520, 65610221, 4955692 ####[facility] [address] [place] [address] CO2 [Moles/Vol] 27 mmol/L Normal 21-31 [facility] Comment on above: Performed By: #### 2 620702, 4359387, 23573467, 21128375, 4676832 ####[facility] [address] [place] [address] Creatinine [Mass/Vol] 1.4 mg/dL High 0.5-1.3 [facility] Comment on above: Performed By: #### 2 395996, 6126824, 01884975, 82447835, 5977177 ####[facility] [address] [facility] [place] [address] Glucose [Mass/Vol] 144 mg/dL Normal 55-199 [facility] Comment on above: Result Comment: If t his glucose result represents a fasting glucose, interpretation should refer to the following reference range: 55-99 mg/dL Performed By: #### 2 213360, 3717779, 68846434, 50022317, 8541771 ####[facility] [address] [facility] [place] [address] Potassium [Moles/Vol] 3.4 mmol/L Low 3.5-5.3 [facility] Comment on above: Performed By: #### 2 210151, 1073994, 37992440, 74803827, 1056088 ####[facility] [address] [place] [address] Sodium [Moles/Vol] 139 mmol/L Normal 135-145 [facility] Comment on above: Performed By: #### 2 613466, 4673305, 42091601, 94734250, 8391076 ####[facility] [address] [place] [address] Urea nitrogen [Mass/Vol] 24 mg/dL High 5-21 [facility] Comment on above: Performed By: #### 2 456829, 4565208, 56778669, 71207287, 5482827 ####[facility] [address] [place] [address] Urea nitrogen/Creatinine [Mass ratio] 17 No Units Normal 10-20 [facility] Comment on above: Performed By: #### 2 057971, 4057986, 28707362, 56006219, 9975212 ####[facility] [address] [place] [address] CBC w/ Auto Diffon Erythrocyte distribution width (RBC) [Ratio] 15.2 % High 10.9-14.2 [facility] Comment on above: Performed By: #### 2 803442, 1921524, 97693622, 51411984, 9823613 ####[facility] [address] [place] [address] Hematocrit (Bld) [Volume fraction] 35.8 % Low 37.7-49.0 [facility] Comment on above: Performed By: #### 2 699197, 9644482, 78719104, 59093309, 1681318 ####[facility] [address] [place] [address] Hemoglobin (Bld) [Mass/Vol] 11.7 g/dL Low 13.5-17.5 [facility] Comment on above: Performed By: #### 2 486001, 2777703, 74656067, 01905197, 4475101 ####[facility] [address] [place] [address] MCH (RBC) [Entitic mass] 29.1 pg Normal 27.0-34.0 [facility] Comment on above: Performed By: #### 2 425396, 6590449, 32229034, 22219872, 2016204 ####[address] [place] [address] MCHC (RBC) [Mass/Vol] 32.7 g/dL Normal 31.4-36.0 [facility] Comment on above: Performed By: #### 2 806855, 4657807, 79102691, 75007667, 5470443 ####[place] [address] MCV (RBC) [Entitic vol] 89.1 fL Normal 80.0-100.0 [facility] Comment on above: Performed By: #### 2 335762, 3678478, 89544775, 75449961, 9094398 ####[place] [address] Platelet mean volume (Bld) [Entitic vol] 9.4 fL Normal 6.4-10.8 [facility] Comment on above: Performed By: #### 2 101648, 0111702, 49256965, 85384796, 7735112 ####[address] [address] Platelets (Bld) [#/Vol] 185.0 E9/L Normal 150.0-500. 0 [facility] Comment on above: Performed By: #### 2 065554, 6723512, 28600382, 41138967, 1805496 ####[address] [address] RBC (Bld) [#/Vol] 4.0 E12/L Low 4.3-5.9 [facility] Comment on above: Performed By: #### 2 283738, 8346315, 51699620, 20839646, 7798603 ####[address] [address] WBC corrected for nucl RBC Auto (Bld) [#/Vol] 7.7 E9/L Normal 4.0-11.0 [facility] Comment on above: Performed By: #### 2 656922, 2160169, 42622562, 01936853, 2903743 ####[facility] [address] [place] [address] CHEMISTRYOrdered By: [employer] SYSTEM on 02-17-2022 Anion gap [Moles/Vol] 11 [...] 59 mL/min/1.73 m2 Normal >=59mL/min /1.73 m2 [facility] Chem S GFR/1.73 sq M.predicted among non-blacks MDRD (S/P/Bld) [Vol rate/Area] 49 mL/min/1.73 m2 Low >=59mL/min /1.73 m2 [facility] Chem S Glucose [Mass/Vol] 144 mg/dL Normal [...] for Treatmenton 01-21 Consent for Treatment [id number]:127 Normal [facility] HEMATOLOGYOrdered By: SYSTEM [...] 11.7 g/dL Low 13.5 - 17.5 gm/dL FT HemeAutoSS MCH (RBC) [Entitic mass] 29.1 pg Normal 27.0 - 34.0 pg FT HemeAutoSS MCHC (RBC) [Mass/Vol] 32.7 g/dL Normal 31.4 - 36.0 gm/dL FT HemeAutoSS MCV (RBC) [Entitic vol] 89.1 fL Normal 80.0 - 100.0 fL FT HemeAutoSS Platelet mean volume (Bld) [Entitic vol] 9.4 fL Normal 6.4 - 10.8 fL FT HemeAutoSS Platelets (Bld) [#/Vol] 185.0 E9/L Normal 150.0 - 500.0 E9/L FT HemeAutoSS RBC (Bld) [#/Vol] 4.0 E12/L Low 4.3 - 5.9 E12/L FT HemeAutoSS WBC corrected for nucl RBC Auto (Bld) [#/Vol] 7.7 E9/L Normal 4.0 - 11.0 E9/L FT HemeAutoSS PT & PTTon 02-17-2022 aPTT Coag (PPP) [Time] 31.0 second(s) Normal 25.1-36.5 [facility] Comment on above: Result Comment: Hepa rin therapeutic range (represented by Anti-Factor Xa activity of 0.2 - 0.4 U/mL) corresponds to PTT of 56.6 - 109.0 sec. Performed By: #### 2 634820, 1362973, 83636343, 85792069, 0932508 ####[facility] [address] [place] [address] INR Coag (PPP) [Relative time] 1.3 {INR} Invalid Interpretation Code [facility] Comment on above: Result Comment: INR results are specifically intended to assess patients stabilized on long-term Anticoagulation therapy suggested INR?s ?Less Intensive Anticoagulation? 2.0 ? 3.0 Conventional Range 3.0 ? 4.5 Performed By: #### 2 955192, 9343879, 53155516, 80837075, 1974497 ####[facility] [address] [place] [address] PT Coag (PPP) [Time] 15.5 second(s) High 10.2-12.9 [facility] Comment on above: Performed By: #### 2 322448, 3840167, 18397720, 86805432, 6105398 ####[facility] [address] [place] [address] UA With Cult Reflexon 2021 Bacteria LM Ql (Urine sed) SEE COMMENT Invalid Interpretation Code [facility] Comment on above: Result Comment: POSS IBLY PRESENT BUT OBSCURED BY COPIOUS AMOUNT OF RBCS Performed By: #### 1 3257469, 3514918 #### [facility] [address] [place] [address] Bilirubin Ql (U) Negative Normal Negative [facility] Comment on above: Performed By: #### 1 5319342, 4933166 #### [facility] [address] [place] [address] Clarity (U) CLOUDY Abnormal Clear [facility] Comment on above: Performed By: #### 1 2710789, 3560255 #### [facility] [address] [place] [address] Color (U) RED Abnormal Yellow [facility] Comment on above: Performed By: #### 1 7948504, 0925028 #### [facility] [address] [place] [address] Epithelial cells.squamous LM.HPF (Urine sed) [#/Area] See Comment Normal 0-2 [facility] Comment on above: Result Comment: POSS IBLY PRESENT BUT OBSCURED BY COPIOUS AMOUNT OF RBCS Performed By: #### 1 2180133, 7515264 #### [facility] [address] [place] [address] Glucose Test strip (U) [Mass/Vol] Negative Normal Negative [facility] Comment on above: Performed By: #### 1 3676051, 4626858 #### [facility] [address] [place] [address] Hemoglobin Ql (U) 3+ Abnormal Negative [facility] Comment on above: Performed By: #### 1 3346382, 8141490 #### [facility] [address] [place] [address] Ketones (U) [Mass/Vol] TRACE Invalid Interpretation Code Negative [facility] Comment on above: Performed By: #### 1 6139538, 6292609 #### [facility] [address] [place] [address] Adin.plasma/Adin .RBC (Bld) [Mass ratio] >75 Abnormal 0-3 [facility] Comment on above: Performed By: #### 1 8504126, 3243058 #### [facility] [address] [place] [address] Nitrite Ql (U) Positive Abnormal Negative [facility] Comment on above: Performed By: #### 1 1074244, 7605666 #### [facility] [address] [place] [address] pH (U) 7.0 [pH] Invalid Interpretation Code 5.0-9.0 [facility] Comment on above: Performed By: #### 1 8433606, 8060306 #### [facility] [address] [place] [address] Protein (U) [Mass/Vol] 3+ Abnormal Negative [facility] Comment on above: Performed By: #### 1 1404631, 7182163 #### [facility] [address] [place] [address] Specific gravity (U) [Rel density] 1.015 Invalid Interpretation Code 1.005-1.03 0 [facility] Comment on above: Performed By: #### 1 6829517, 5135153 #### [facility] [address] [place] [address] Type of Urine collection method Clean Catch Normal [facility] Comment on above: Performed By: #### 1 8724794, 6398054 #### [facility] [address] [place] [address] Urobilinogen Qn (U) 1.0 {Terry'U}/dL Normal 0.0-1.0 [facility] Comment on above: Performed By: #### 1 3088727, 5727240 #### [facility] [address] [place] [address] WBC Auto Ql (U) 1+ Abnormal Negative [facility] Comment on above: Performed By: #### 1 6130403, 7920510 #### [facility] [address] [place] [address] WBC LM.HPF (Urine sed) [#/Area] See Comment Normal 0-5 [facility] Comment on above: Result Comment: POSS IBLY PRESENT BUT OBSCURED BY COPIOUS AMOUNT OF RBCS Performed By: #### 1 8550265, 3799348 #### [facility] [address] [place] [address] URINALYSISOrdered By: Luis Enrique wiley on 02-17-2022 [...] Interpretation Code Negative [facility] UA Auto SS Adin.plasma/Adin .RBC (Bld) [Mass ratio] >75 /HPF Invalid Interpretation Code 0-3/HPF [facility] UA Auto SS Nitrite Ql (U) Positive *ABN* (02/17/22 2:09 PM) Invalid Interpretation Code Negative [facility] UA Auto SS pH (U) 7.0 *NA* (02/17/22 2:09 PM) Invalid Interpretation Code 5.0 - 9.0 [facility] UA Auto SS Protein (U) [Mass/Vol] 3+ *ABN* (02/17/22 2:09 PM) Invalid Interpretation Code Negative [facility] UA Auto SS Specific gravity (U) [Rel density] 1.015 *NA* (02/17/22 2:09 PM) Invalid Interpretation Code 1.005 - 1.030 [facility] UA Auto SS UA Spec Desc Clean Catch (02/17/22 2:09 PM) Normal [facility] UA Auto SS Urobilinogen Qn (U) 1.3448894 {Terry'U}/dL Normal 0.0 - 1.0 EU/dL [facility] UA Auto SS WBC Auto Ql (U) 1+ *ABN* (02/17/22 2:09 PM) Invalid Interpretation Code Negative [facility] UA Auto SS WBC LM.HPF (Urine sed) [#/Area] See Comment 3 (02/17/22 2:09 PM) Normal 0-5 [facility] UA Auto SS Comment on above: Result Comment: POSS IBLY PRESENT BUT OBSCURED BY COPIOUS AMOUNT OF RBCS eGFRon 02-17-2022 GFR/1.73 sq M.predicted among blacks MDRD (S/P/Bld) [Vol rate/Area] 59 mL/min/1.73 m2 Normal >=59 [facility] Comment on above: Order Comment: Order added by Discern Expert. Result Comment: eGFR is race adjusted. AA=. Performed By: #### 2 235836, 2308561, 55917649, 29306847, 9901274 ####[facility] [address] [place] [address] GFR/1.73 sq M.predicted among non-blacks MDRD (S/P/Bld) [Vol rate/Area] 49 mL/min/1.73 m2 Low >=59 [facility] Comment on above: Order Comment: Order added by Discern Expert. Result Comment: [employer] swathi kidney disease could be indicated at eGFR's of less than 60 mL/min/1.73m2. Kidney failure is indicated at less than 15 mL/min/1.73m2. Performed By: #### 2 803003, 1991882, 85837550, 58242024, 4610336 ####[facility] [address] [place] [id number] XR Spine Lumbar 4+ Views*on 02-10-2022 XR [...] by JACKLYN KOO on 02/11/2022 0917 Normal [facility] Ambulatory Visit Summaryon 0 02-01-2022 Ambulatory Visit [...] infections. ? (more content not included)... Normal [facility] Patient Educationon 02-02-20 Patient Education Oncology [...] Follow these instructions at home: ? Take pfjo-anl-bsjpwqu and prescription medicines only as told by [...] important. Where to find more information ? [place] [employer]: www.cancer.org ? National [employer] [place] (NCI): www.cancer.gov Contact a health care provider [...] 08/09/2004 Document Revised: 07/20/2018 Document Reviewed: 07/11/2017 [employer] Patient Education ? 2019 CheckInOn.Me. 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 He had a TUR of his bladder tumor on 01/13/2022. Is here today for his first postop visit. [facility] Staff Pascual is here today for [...] q12hr, # 30 tab(s), Refills(s) 0, Pharmacy: [id number] Urology Procedure (more content not included)... Normal [facility] Comment on above: Result Comment: Elec tronically Signed By: Yoko Leyva Jr., MD\.br\Date and Time Signed: 02/01/22 11:54 EDT\.br\Electronically Co-Signed By: Jolly Justice\.br\Date and Time Co-Signed: 02/01/22 11:50 EDT Operative Reporton 2 Operative Report [id number]#[id number]:127 Normal [facility] Coding Summary.on 01-25-2022 Coding Summary. CD:[id number] Gh0bWw +PGhlYWQ+LE7GLFPvF32ejORdr G7IL0iDDI7SCOSZKBFJEF2CJC8 poKP7NKvvG6BhkwLh BgsgkFGiDH68IVi4QGS0uEgwBJ fikM0leZFnR6c5HwYcZV94vB49 XWrpBVLkDuW5XwPrwnjdzJTb S1vbGdGogVAiPjg+PHRhYmxlIH kgEVZcQIjuBASwQlNreUcdJC3r Tj2xHNKoQGCzeQstbBUmIhVh r6loIKOzDLccUF4bsEmwP6NlfN E7YRDxx2h8El80fQI+PHRkIHN0 iXdwXZqzo258FjBzv5shGHV6 uPBsPQpfBQN6C70tc9V1CKVcDJ DbNZA7jRY7oT3tuGkxlyqjE8Po jSTiHnG9ZDQ3uCYlgT0glAju rqpddG8cInt+N40ZQL6IGCBDBR 6BTnq1K0HrBwwzlLO+PS09HDFc PQ57cVDgyVInr2nqpWx1GtBb JPVzYRM8iMtpOYhei5AsHADgB7 0osXTfq9Z9WYHqzGvveGCaRqPo rLS4sW7yHAaleqfgz5ddteab Qmixf6tbbl62uX13C99fAHpoXV PkGDY1ISSpSUIugLfgri0zgP9v Ii8+VPxrq3ovn4acwZt0SmOf XAMffqCjcKclHNX2a2PiRs81P3 SyxQfhd6QbGdh6oa07dJZqm6K9 kFR3GQprRTWljD6qHTpvAsL6 SIEoYnZlmT35zKBtADriWs4yrM zqkCajVT8sQAIqldauTMCvlF5j FOUqeFIqjIfmGQ8tUVSenfqy i304JrSwWMG5VZTkuDChP6MzmO 5cXmBnAWPmZVIxX0MmtJDdLAlh Z910VXjgQqY1WOIrswAcV8It ACEuaDhvGxU0v7F3Vo6Px7Vxig syWAY2SHoqNVO5IzL3SrNaSrF3 E0NjKfb6QPIfaWhfET3sP3Ii ETPwtrojhjhaxDC9GZDgTUPziQ 61qUJaCAyoHj6sl1N3e801VNWf WNBfiK19Mn1fmIovMMAukFRB iY5cpqtgb8bbeumoPrOoAPCfVE j5GRn0EXGdhKopCuHeIJW3JcV3 DWH4vEVtbE0xuKcsaqfldI3w Oyc+Z73awQ1iFAQ9OEJ4mvakUK GcmyVgUC57QC97J1RaJslymDRe bGU+EGXdhiFplZozEX6oDoTo b3lvo6UiTPptD3OqCEBoTMcoDt e4NLWyISY8jLV6lW6rPJOcEFek z7T9mPZ0Y4LpudZjbd5ik3ss ZAGpEDaoN80iuGMid9C3RSNqeI Z0YNKisVukCqOqkM89Pab+PGNv aAkhl4UbKlunb6dkw9ddpMb6 RdEtCSRvokYxkEslMCB3m8HiSi 18V87xSNbzIKHoLQChVHQeLZPl nKkjmz7vtL1wFv9+PGNvbCB3 uRR3iE6zLFFiUoF7VYohJ218Bk MbqAInHcoem9tho9zfmUy7YdFb UFSgdrSizCovHKP3h5EpPm23 A34lHIftLBAlLQNmSSCaCWSgxG osxg1reB1vOq8+LQ0aa9owbn59 mN06cGU+XZXxWJN2pZapLZci YVEokG4dZFfcXnK5VUXgFqCkvO 89fPAcTUpsVu5nkTkucAeeAX9o EUGxeizxz485UmBoe9rePHDh iVIuMVjrQQN8N43bp2L8OEIgPR IeIUG7kMQ5cB4ceEoxiewvbEOs ePqxjuSioHppRNhnBIksT483 IHRvcDsnPlBhdGllbnQgTmFtZT q8S8RkJda2XZRxgEotMF2kwPSu ZZceZr1zxJoqqVetAT5oSRNz zlyzh060GqOmx0cgOPOqhOAmIE dmSYT5U34qn1K7FCFoWJAiYIZ6 wSN1pA9nnTcecchqtSIlfUqg ckEciLzzPCqmKNoxI601JKZnaY dmJiJcnkLdKVOrmJX3YG94HO95 eQYzd5P9wHG5R8DmSJSdslqt qpbggPI7OMLvMKDxrM22Xp1jjN jmIk5xOLYmUUJ7ARBhqHFbJ6Kn fR8sJeGqRUOvRKNiH9BzvYEu CJbbQ070IUmjZvK9RODbfhJhQ2 OyUYWxoTjcOvD3q6N0Ss6QR7M5 QG06QY10gYEbo3D4sZE4G5Ln MUPfbkrbtshowFU9SKVdZAVosM 81Py8agEyvFg0lGEAiNRM1ZWOi wWPjB4SenR7mGeNvGKNvYBMw D0KukCLxLOhtP930PLrvTfM3KD SljlWrR2BcYIVxfFvtFhY2g2M9 Nv8XSQd9UP77MT80eVXfs9M9 hXA3H6HgQHGebdvknlpioGN1FR QtPVLlqS01Qa1snSmiBs1fOAFe VNH8AAEihJZzQ7HlqG7oElYk IZCpTNLhE5ZsvILpUIcvX092JN qiKzG0DYGgmkJwF8BxSLTcfAgu XrO6l2X1Zt6PMZPrOF33KJT9 wSB7XY37GR35E9HuDtaynSHjzZ U+PHRhYmxlIHdpZHRoPScxMDAl RaNdkIcuAP8vEq9sBUSrUEOz qKvpaDFeQzEcl8clIRZzOVioLO 2gvRakV2YmkMR5VVRsd2f6Ez64 E17gR7UuoGT+XBHgzZV4qSH4 mO0lLjHqBaU3WAloZ747HjPffD PlKmovl0vgo7fjiFa6AzE8OPHd viUnnGasIOX6y0KcCs29U70v IHdpZHRoPSIxNSUiIHZhbGlnbj 8jcV2wKp9+NHGhbTB0sQP1cH0e TtPjRbZ9BNxgG216YkDouRUx Jfplj1tqy4ksgZr6WlJzTOVbed KrhEnzOSG5c6BuAl79V9CxfEoo r1JiFwr1or88aIKsz1P6jWD5 O8IpIPOcwqzsgQVwiDmsDO9vDZ OnlcdqTHEmxI9eEWAdJ3f2IcDd WoY6KRzlN9DynzD2CLWxwMQb DYsyPSK9V29xo3J1GXRsZMLlNL R7xUG0kP7bdNhvibtnaGMsaFpl zjDtlRfsLNfbKAhtH473MABu nAiwPOYsvS6cWJHefEBnqSdoDN 9hORKzvnktYyVGM98PWtjmU1wE AycLIsDVHU64QX13eJWce0N0 yCW4O2GyBGHgjctepemdnCM2MI FiKEHxaC00cOMuURjpYw1dg6Y7 p177COXzPEYkqC68No9ihQyo GUTbuRWKyI4tysrvg2zzrgnzKd LmHUMwMRs6DYk6CNFreNupTtWm IOL4FuM2WRS5aWSnrL4sdIyb lykvgK2sWuk+GOSoLTCpUZl3VS wvdGQ+NJMyOYW3sJetILyyLIIv cI6cOZWqS2i3KmRwVlI1UXuw E9WdQPGzettnXa19nL7sUvDcGv R2SVtoT7LuonD2WDQslMSjWNbx KSM6V12vp4B6KYUxFVHlGAM3 eKU3yR6vxAdlnsfxbNCkeJfalr ThlAcnOMkeAZryX507BYEeaRtg Unl7YFtjZAZcUX76VU90bBYw h3W4kOJ2H1LyOWDjdkccakjytZ L4OZPkXUIqdV74fQNnGNgnLh9w k2R4r057JSXyEGHgpZ03Ls0y eBpcRXKlmWGNrA3yuiuhe1whgn ufUoLcLDKyPDy1SLv0DNAfgJsu KkHiIPD0UhA2ZQJ9zPZdzC4h pYadnjwtzG5jVea+TWFsZTwvdG Q+PZNaPDR1zPzvJWuqWZQzaN0l LANiQ4e3GxDsNvH9PYzwW3Mg DVKnfcljBc76gJ8mQgCrHqE8LU tjI3PvjrS1AQFsbHWuCGcpXKY0 X24fy1Y9XEKpENDgGQV0xEY9 xM5yrYxcevwfrZUalFxijjFqsQ jrFGuaNVanV024SOEbkRibDpwz WhQCrt8pHO6uCmuniKZ+PC90 nu88G7DdYuwiIvi0UXUvJGI3wT D1kG3bFPJySLiml7A6uJP8F5Ag ozUmuf5ir5hfRHSlYRyjW25y dFFiz2O2TDMbiKG2DQIfiUaqJp ZdfQ94Cat+IYWdhJegr1TdGlba f7ron0nhaGw2FbUyFSKvshMa cDhhWIH0v0UeEz97P87zMObxFJ OaIFCcPMEaTYMerGrttp4kuC4l Ii8+MUMfpSH2xTZ1jQ1yGwSs QfN4PQhmG736MhDpoIYaQwahu5 dvu2rnfOe8ZdXyTNIzvuSjrAjb JDQ4c9KwFt65D5NhbNoaf2Zi Pvy4sj48uTDow7Y1oOA6G5JrPA MeixspmWYuvYbdRZ3wRDRheyma QUQffR6xLSRuW4l6OfVvHvB4 IPydF4YxugY4RDRpbNSxOLXzoP MSjR3gigkxt1kydadvHwMgDBGg SYc2ZJk6ZBOduQguTkFaRSB2 OlF3PSC0sXFsdB1ctMkwakowuU 9wOyc+MRa8e8wkvQXsZZ8ywEA5 VA46OH74uVKgj0O2zUF0T3Kp DAFkxvgtbeazsKM4ESYlBIBvlY 02To2vwSfuVn1xHYXrNPU0BNUy mSNnR6MkmX6qFnSfDXXpSJAy N6LqiNDsUZyyD592IBktLcO5RE HsnwHvJ1FiIGFpzZasYhJ4a9I5 Pt7OVU21VO43FZ96hVJnt3E5 aIV2T0RoWLYcvvrtcusufTT0TO TdDSFhqP65Sz8wsSfjEe7zMKHq VDN1RYLjyVJbZ6WpzC9jAdDm ECMrBMRuA5TqkLPkKTjeB110CK ghSxL5YBLfhnRtM9YsTFGccOxb WkX0u5W4Qx7RXg00AL03DM51 dKXsc2D9vWD3H4QaBABoqgnkyb vkeVZ8SKCiZAXzxF76Zu6duXkk Ei3bPUIsPBT1KVOhjZCwM4Xm hR5wQmZjQNGtSYCuQ6HecGNbJJ awT791ZHoiUbH9GETjxgUtY4Iv JLNemXavFuF6b2V2Ct4PDDch pxa7W5MoPfqimND+RN17KLZqXH 04fTCwiPTmh9yzsKt9NkTtLQZj EJP4pWgwXBbhk3NeYLVzF98k bGFw (more content not included)... [facility] Reminderson 01-24-2022 Reminders - From: Miller Shirley MA To: EU - Clinical; Sent: 01/21/2022 14:39:52 EDT Show up: 01/24/2022 08:00:00 EDT Subject: Ambulatory Reminder Reminder/Recall urine culture addressed. NICK [facility] C Urineon 01-23-2022 Bacteria identified Cx [...] Locations R1: This test was performed at: [facility], [address] [place] [address], [id number] , , [facility] Comment on above: Performed By: #### 2 [id number] ####[place] [address] Ambulatory Visit Summaryon 0 01-21-2022 Ambulatory Visit Summary TAURUS GARCIA :1945 Visit Date:01/21/2022 Ambulatory Visit Instructions Your Diagnosis Urgency of urination Tests Performed Urnls Dip Stick Auto w/o Microscopy POC 47246 Your Care Team Attending Physician - Yoko [...] Follow-Up Appointments Monday 10:30 AM EDT With: Yoko Leyva Jr., MD Where: [facility] Pathology Noteon 01-19-2022 Pathology Note [id number]#[id number]:127 [facility] Ambulatory Visit Summaryon 0 01-18-2022 Ambulatory Visit Summary TAURUS GARCIA :1945 Visit Date:01/18/2022 Ambulatory Visit Instructions Your Care Team Attending Physician - Yoko [...] [facility] 01-11-2022 Lab Reports [id number]#[id number]:127 Normal [facility] Lab Reportson 01-10-2022 Lab Reports [id number]:127 Normal [facility] PROF CHEM 8 (BAS METB)on Anion gap [Moles/Vol] 12.8 mmol/L Normal [facility] Comment on above: Performed By: #### B MP #### [facility] [address] [address] [address] Chao Garcia Calcium [Mass/Vol] 9.4 mg/dL Normal 8.5-10.1 [facility] Comment on above: Performed By: #### B MP #### [facility] [address] [address] [address] Chao Garcia Chloride [Moles/Vol] 107 mmol/L Normal 98-107 [facility] Comment on above: Performed By: #### B MP #### [facility] [address] [address] [address] Chao Garcia CO2 [Moles/Vol] 27.6 mmol/L Normal 21.0-32.0 [facility] Comment on above: Performed By: #### B MP #### [facility] [address] [address] [address] Chao Garcia Creatinine [Mass/Vol] 1.47 mg/dL Critically high 0.70-1.30 [facility] Comment on above: Performed By: #### B MP #### [facility] [address] [address] [address] Chao Garcia EGFR-AF WALLISIAN 56 mL/min/1.73m2 Critically low >=60 [facility] Comment on above: Performed By: #### B MP #### [facility] [address] [address] [address] Chao Garcia EGFR-NON AF WALLISIAN 46 mL/min/1.73m2 Critically low >=60 [facility] Comment on above: Performed By: #### B MP #### [facility] [address] [address] [address] Chao Garcia Glucose [Mass/Vol] 142 mg/dL Critically high 74-106 [facility] Comment on above: Performed By: #### B MP #### [facility] [address] [address] [address] Chao Garcia Potassium [Moles/Vol] 3.4 mmol/L Critically low 3.5-5.1 [facility] Comment on above: Performed By: #### B MP #### [facility] [address] [place], [place] [address] Dr. Chao Garcia Sodium [Moles/Vol] 144 mmol/L Normal 136-145 [facility] Comment on above: Performed By: #### B MP #### [facility] [address] [address] [address] Chao Garcia Urea nitrogen [Mass/Vol] 33.0 mg/dL Critically high 7.0-18.0 [facility] Comment on above: Performed By: #### B MP #### [facility] [address] [address] [address] Chao Garcia Urea nitrogen/Creatinine [Mass ratio] 22.4 mg/mg Normal [facility] Comment on above: Performed By: #### B MP #### [facility] [address] [address] [address] Chao Garcia Consent for Procedure/Surger yon 01-04-2022 Consent for Procedure/Surgery [id number]:12 7 Normal [facility] Ambulatory Visit Summaryon 0 12-27-2021 Ambulatory Visit Summary JOSETAURUS :1945 Visit Date:12/27/2021 Ambulatory Visit Instructions Your [...] Follow Up with Autumn Molina MD, [facility] When: Comments: schedule follow up after TURBT Where: [facility] [address], [place] [address]- Medications What How Much When Instructions Unchanged [...] these instructions at home: Medicines ? Take yndm-zdg-maeycca and prescription medicines only as told by [...] the blood stops without treatment. ? Take wblf-hwa-evzgbvh and prescription medicines only as told by your health care provider. ? Drink enough fluid to keep your urine clear or pale yellow. This information is not intended to replace advice given to you by your health care provider. Make sure you discuss any questions you have with your health care provider. Document Released: 08/07/2006 Document Revised: 01/01/2020 Document Reviewed: 09/09/2017 [employer] Patient Education ? 2019 [employer]Me. Normal [facility] Urology Office/Clinic Noteon 12-27-2021 Urology Office/Clinic [...] urine The Urethra was dilated to: _ [place] with sounds. Specimens Removed: Voided specimen sent [...] on delayed axial image 228. Ordered: Cystourethroscopy [id number] Urology Procedure Order 2. Gross hematuria (R31.0: [...] tronically Signed By: Autumn Molina MD, Yoko aHir\.br\Date and Time Signed: 12/27/21 13:27 EDT\.br\Electronically Co-Signed By: lEvin Hawthorne\.br\Date and Time Co-Signed: 12/27/21 13:19 EDT Lab Reportson 12-16-2021 Lab Reports [id number]:127 Normal [facility] RAD - CT Reporton 12-16-2021 RAD - CT Report [id number]:127 Normal [facility] CREATININEon 12-15-2021 Creatinine [Mass/Vol] 1.52 mg/dL Critically high 0.70-1.30 [facility] Comment on above: Performed By: #### C RAFA #### [facility] [address] [address] [address] Chao Garcia EGFR-AF WALLISIAN 54 mL/min/1.73m2 Critically low >=60 [facility] Comment on above: Performed By: #### C RAFA #### [facility] [address] [address] [address] Chao Garcia EGFR-NON AF WALLISIAN 45 mL/min/1.73m2 Critically low >=60 [facility] Comment on above: Performed By: #### C RAFA #### [facility] [address] [address] [address] ABD/PELV W CONon 12-16-[address] ABD/PELV W CON EXAMINATION: CT ABD/ [...] by: JORDAN RUTLEDGE Date: 2021-12-15 13:10 Normal [facility] Formson 12-15-2021 Forms [id number] Normal [facility] U[employer]ion Fish and [...] on: 12/13/2021 13:24:10 Performed By: #### 1 [id number] ####[facility] [address] [place] [address] Patient Educationon 12-08-19 Patient Education Urology Hematuria, [...] these instructions at home: Medicines ? Take wehl-xhd-wwsattw and prescription medicines only as told by [...] the blood stops without treatment. ? Take geyh-mxh-ocbqbsp and prescription medicines only as told by your health care provider. ? Drink enough fluid to keep your urine clear or pale yellow. This information is not intended to replace advice given to you by your health care provider. Make sure you discuss any questions you have with your health care provider. Document Released: 08/07/2006 Document Revised: 01/01/2020 Document Reviewed: 09/09/2017 [employer] Patient Education ? 2019 [employer] Normal [facility] UroVysion Fish and Urine Cyt o ([facility])on 12-07-2021 [facility] Method of Extraction Voided Normal [facility] Comment on above: Performed By: #### 1 [id number] ####[facility] [address] [place] [address] [facility] Number of Jars 1 Invalid Interpretation Code [facility] Comment on above: Performed By: #### 1 [id number] ####[facility] [address] [place] [address] [facility] Specimen Urine Normal [facility] Comment on above: Performed By: #### 1 [id number] ####[facility] [address] [address] [facility] Type of Service Global Normal Fish [facility] Comment on above: Performed By: #### 1 [id number] ####[facility] [address] [place] [address] Urology Office/Clinic Noteon 12-07-2021 Urology Office/Clinic Note Chief Complaint Gross hematuria with moderate bladder outlet obstruction symptoms. Patient is on Eliquis. [facility] Staff This is a 76 year old male referred by Dr. Schaffer for hematuria. Pt was last seen by Dr. Leyva 05/03/18. S/P Kim 02/16/17. Pt. is on Eliquis 5mg. Pain [...] procedure, # 2 tab(s), Refills(s) 0, Pharmacy: [id number] Follow-up With When Contact Information Autumn Molina MD, Yoko Hair, [facility] [address], [place] [phone] Additional Instructions: Patient Education Hematuria, Adult I, Margaret Mitchell, personally scribed for Dr. Leyva on 12/07/2021 10:01:53. . Documentation recorded by the scri (more content not included)... Normal [facility] Comment on above: Result Comment: Elec tronically Signed By: Autumn Molina MD, Yoko Hair\.br\Date and Time Signed: 12/07/21 10:06 EDT\.br\Electronically Co-Signed [...] Instructions By signing my name below, I, Raiza Gerber LPNibmagdalena, attest that this documentation has been prepared [...] treated conservatively. Notably, prior to that in 2018 he had a heart catheterization revealing normal [...] MG Oral TabletTake 1 tablet daily Pyridostigmine [place] 60 MG Oral TabletTAKE 1 TABLET 4 [...] Recorded: 31Aug2021 01:21PM Heart Rate74, L Radial Jpgoxxur485, LUE, Sitting Aapyylmlh22, LUE, Sitting Height5 ft 9 in Jgjpnn952 lb BMI Gpzyppknen19.62 kg/m2 BSA Calculated2.58 Tobacco Useb) No Fall [...] Aug 31 2021 3:38PM EST (Author) Normal Belly Complete Blood Count with Au to Diffon 08-18-2021 Basophils (Bld) [#/Vol] 0.05 10*3/uL Normal 0.00-0.20 [facility] Enterer Comment on above: Performed By: #### C MP, LIPD, TSH, CBCAD, FT4 #### [facility] [address] [place], [place] [id number] Basophils/100 WBC (Bld) 0.7 % Normal [facility] Specialist Comment on above: Performed By: #### C MP, LIPD, TSH, CBCAD, FT4 #### [facility] [address] [place], [place] [id number] Eosinophils (Bld) [#/Vol] 0.15 10*3/uL Normal 0.02-0.50 [facility] Specialist Comment on above: Performed By: #### C MP, LIPD, TSH, CBCAD, FT4 #### [facility] [address] [place], [place] [id number] Eosinophils/100 WBC (Bld) 2.0 % Normal [facility] Specialist Comment on above: Performed By: #### C MP, LIPD, TSH, CBCAD, FT4 #### [facility] [address] [place], [place] [id number] Erythrocyte distribution width (RBC) [Ratio] 14.6 % Normal 11.0-15.0 [facility] Specialist Comment on above: Performed By: #### C MP, LIPD, TSH, CBCAD, FT4 #### [facility] [address] [place], [place] [id number] Hematocrit (Bld) [Volume fraction] 43.5 % Normal 38.5-50.0 [facility] Comment on above: Performed By: #### C MP, LIPD, TSH, CBCAD, FT4 #### [facility] [address] [place], [place] [id number] Hemoglobin (Bld) [Mass/Vol] 13.8 g/dL Normal 13.0-17.1 [facility] Comment on above: Performed By: #### C MP, LIPD, TSH, CBCAD, FT4 #### [facility] [address], [place] [id number] Lymphocytes (Bld) [#/Vol] 2.5 10*3/uL Normal 0.9-3.9 [facility] Comment on above: Performed By: #### C MP, LIPD, TSH, CBCAD, FT4 #### [facility] [address], [place] [id number] Lymphocytes/100 WBC (Bld) 32.3 % Normal [facility] Comment on above: Performed By: #### C MP, LIPD, TSH, CBCAD, FT4 #### [facility] [address], [place] [id number] MCH (RBC) [Entitic mass] 30.3 pg Normal 27.0-33.0 [facility] Comment on above: Performed By: #### C MP, LIPD, TSH, CBCAD, FT4 #### [facility] [address] [place], [place] [id number] MCHC (RBC) [Mass/Vol] 31.7 g/dL Low 32.0-36.0 [facility] Comment on above: Performed By: #### C MP, LIPD, TSH, CBCAD, FT4 #### [facility] [address], [place] [id number] MCV (RBC) [Entitic vol] 95 fL Normal 80-100 [facility] Comment on above: Performed By: #### C MP, LIPD, TSH, CBCAD, FT4 #### [facility] [address] [place], [place] [id number] Monocytes (Bld) [#/Vol] 0.9 10*3/uL Normal 0.2-0.9 [facility] Comment on above: Performed By: #### C MP, LIPD, TSH, CBCAD, FT4 #### [facility] [address] [place], [place] [id number] Monocytes/100 WBC (Bld) 11.5 % Normal [facility] Comment on above: Performed By: #### C MP, LIPD, TSH, CBCAD, FT4 #### [facility] [address] [place], [place] [id number] Neutrophils (Bld) [#/Vol] 4.1 10*3/uL Normal 1.5-7.8 [facility] Comment on above: Performed By: #### C MP, LIPD, TSH, CBCAD, FT4 #### [facility] [address] [place], [place] [id number] Neutrophils/100 WBC (Bld) 53.0 % Normal [facility] Comment on above: Performed By: #### C MP, LIPD, TSH, CBCAD, FT4 #### [facility] [address], [place] [id number] Platelet mean volume (Bld) [Entitic vol] 10.70 fL Normal 7.50-12.50 [facility] Specialist Comment on above: Performed By: #### C MP, LIPD, TSH, CBCAD, FT4 #### [facility] [address], [place] [id number] Platelets (Bld) [#/Vol] 208 10*3/uL Normal 140-400 [facility] Specialist Comment on above: Performed By: #### C MP, LIPD, TSH, CBCAD, FT4 #### [facility] [address] [place], [place] [id number] RBC (Bld) [#/Vol] 4.56 10*6/uL Normal 4.20-5.80 [facility] Comment on above: Performed By: #### C MP, LIPD, TSH, CBCAD, FT4 #### [facility] [address], [place] [id number] RDW-SD 51.6 fL High 37.0-50.0 [facility] Specialist Comment on above: Performed By: #### C MP, LIPD, TSH, CBCAD, FT4 #### [facility] [address], [place] [id number] WBC (Bld) [#/Vol] 7.7 10*3/uL Normal 3.8-11.0 [facility] rom[facility] [place] [facility] Comment on above: Performed By: #### C MP, LIPD, TSH, CBCAD, FT4 #### [facility] [address] [place], [place] [id number] Comprehensive [facility] 08-18-2021 Albumin [Mass/Vol] 4.2 g/dL Normal 3.6-5.1 Jena romero [place] [facility] Comment on above: Performed By: #### C MP, LIPD, TSH, CBCAD, FT4 #### [facility] [address] [place], [place] [id number] Albumin/Globulin [Mass ratio] 2.0 {ratio} Normal 1.0-2.5 [facility] Ente[facility] Comment on above: Performed By: #### C MP, LIPD, TSH, CBCAD, FT4 #### [facility] [address], [place] [id number] ALP [Catalytic activity/Vol] 69 U/L Normal 40-129 [facility] Specialist Comment on above: Performed By: #### C MP, LIPD, TSH, CBCAD, FT4 #### [facility] [address] [place], [place] [id number] ALT [Catalytic activity/Vol] 22 U/L Normal 9-46 [facility] Ente[facility] Comment on above: Result Comment: 07/21 Female reference range changed. Performed By: #### C MP, LIPD, TSH, CBCAD, FT4 #### [facility] [address], [place] [id number] Anion gap [Moles/Vol] 18 mmol/L Normal 12-20 [facility] Specialist Comment on above: Result Comment: Effe ctive 08/26/2019 reference range changed. Performed By: #### C MP, LIPD, TSH, CBCAD, FT4 #### [facility] [address], [place] [id number] AST [Catalytic activity/Vol] 21 U/L Normal 10-40 [facility] Comment on above: Performed By: #### C MP, LIPD, TSH, CBCAD, FT4 #### [facility] [address], [place] [id number] Bilirubin [Mass/Vol] 0.60 mg/dL Normal 0.30-1.20 [facility] Comment on above: Performed By: #### C MP, LIPD, TSH, CBCAD, FT4 #### [facility] [address], [place] [id number] BUN/CREA 20 Ratio Normal 6-22 [facility] Comment on above: Performed By: #### C MP, LIPD, TSH, CBCAD, FT4 #### [facility] [address], [place] [id number] Calcium [Mass/Vol] 9.3 mg/dL Normal 8.6-10.2 [facility] Comment on above: Performed By: #### C MP, LIPD, TSH, CBCAD, FT4 #### [facility] [address], [place] [id number] Chloride [Moles/Vol] 104 mmol/L Normal 98-107 [facility] Comment on above: Performed By: #### C MP, LIPD, TSH, CBCAD, FT4 #### [facility] [address], [place] [id number] CO2 [Moles/Vol] 25 mmol/L Normal 20-31 [facility] Comment on above: Performed By: #### C MP, LIPD, TSH, CBCAD, FT4 #### [facility] [address], [place] [id number] Creatinine [Mass/Vol] 1.2 mg/dL Normal 0.7-1.4 [facility] Comment on above: Performed By: #### C MP, LIPD, TSH, CBCAD, FT4 #### [facility] [address], [place] [id number] eGFRAA 72 mL/min/1.73m2 Normal >60 [facility] Comment on above: Performed By: #### C MP, LIPD, TSH, CBCAD, FT4 #### [facility] [address], [place] [id number] eGFRNAA 59 mL/min/1.73m2 Low >60 [facility] Specialist Comment on above: Performed By: #### C MP, LIPD, TSH, CBCAD, FT4 #### [facility] [address], [place] [id number] Globulin (S) [Mass/Vol] 2.1 g/dL Normal 1.9-3.7 [facility] Specialist Comment on above: Performed By: #### C MP, LIPD, TSH, CBCAD, FT4 #### [facility] [address], [place] [id number] Glucose [Mass/Vol] 132 mg/dL High 65-99 Jena romero [place] [facility] Comment on above: Result Comment: For FASTING Glucose --- ADA reference ranges: Normal 65-99 mg/dl Prediabetes 100-125 Diabetes >/= 126 Performed By: #### C MP, LIPD, TSH, CBCAD, FT4 #### [facility] [address], [place] [id number] Potassium [Moles/Vol] 3.4 mmol/L Low 3.5-5.5 [facility] Comment on above: Performed By: #### C MP, LIPD, TSH, CBCAD, FT4 #### [facility] [address] [place], [place] [id number] Protein [Mass/Vol] 6.3 g/dL Normal 6.1-8.1 Jena romero [place] [facility] Comment on above: Performed By: #### C MP, LIPD, TSH, CBCAD, FT4 #### [facility] [address], [place] [id number] Sodium [Moles/Vol] 144 mmol/L Normal 135-146 Jena romero [place] En[facility] Comment on above: Performed By: #### C MP, LIPD, TSH, CBCAD, FT4 #### [facility] [address] [place], [place] [id number] Urea nitrogen [Mass/Vol] 23 mg/dL Normal 7-25 [facility] Enterer Comment on above: Performed By: #### C MP, LIPD, TSH, CBCAD, FT4 #### [facility] [address], [place] [id number] Free T4on 08-18-2021 Free T4 [Mass/Vol] 1.26 ng/dL Normal 0.80-1.80 [facility] Comment on above: Performed By: #### C MP, LIPD, TSH, CBCAD, FT4 #### [facility] [address], [place] [id number] Lipid Panelon 08-18-2021 Cholesterol [Mass/Vol] 170 mg/dL Normal 125-200 [facility] above: Result Comment: Low risk < 200mg/dL Borderline risk 201-239 mg/dl High risk > or equal to 240 Performed By: #### C MP, LIPD, TSH, CBCAD, FT4 #### [facility] [address] [place], [place] [id number] Cholesterol in HDL [Mass/Vol] 70 mg/dL Normal >40 [facility] Comment on above: Result Comment: High Cardiovascular Risk HDL <40 mg/dL Low Cardiovascular Risk HDL > or equal to 60 mg/dl Performed By: #### C MP, LIPD, TSH, CBCAD, FT4 #### [facility] [address], [place] [id number] Cholesterol in LDL [Mass/Vol] 78 mg/dL Normal [facility] Comment on above: Result Comment: LDL ATP III CLASSIFICATION LDL less than 100 mg/dl Optimal LDL 100-129 mg/dl Near or above optimal LDL 130-159 Borderline high LDL 160-189 High LDL greater than 189 mg/dl Very High Performed By: #### C MP, LIPD, TSH, CBCAD, FT4 #### [facility] [address], [place] [id number] Cholesterol in VLDL [Mass/Vol] 22 mg/dL Normal [facility] Comment on above: Performed By: #### C MP, LIPD, TSH, CBCAD, FT4 #### [facility] [address], [place] [id number] Cholesterol.total/Chol esterol in HDL [Mass ratio] 2 {ratio} Normal [facility] Comment on above: Performed By: #### C MP, LIPD, TSH, CBCAD, FT4 #### [facility] [address], [place] [id number] Triglyceride [Mass/Vol] 110 mg/dL Normal 30-150 [facility] Ente[facility] Comment on above: Result Comment: TRIG ATPIII CLASSIFICATIONS TRIG less than 150 mg/dl Normal TRIG 150-199 mg/dl Borderline High TRIG 200-500 mg/dl High TRIG greather than 500 mg/dl Very High Performed By: #### C MP, LIPD, TSH, CBCAD, FT4 #### [facility] [address] [place], [place] [id number] PSA SCREEN (MEDICARE)on 07-22 TPSA 1.270 ng/mL Normal <4.000 [facility] Enterer Comment on above: Result Comment: PSA Test Method: ECLIA/Racquel e 601 Performed By: #### P SA MC #### [facility] [address], [place] [id number] TSHon 08-18-2021 TSH 4.190 uIU/mL Normal 0.400-4.50 0 [facility] Enterer Comment on above: Performed By: #### C MP, LIPD, TSH, CBCAD, FT4 #### [facility] [address], [place] [id number] Covid-19 PCR ([facility])on 03-23 SARS-CoV-2 (COVID-19) RNA JAYDE+probe Ql (Unsp spec) Detected Critically abnormal NOT DETECTED [facility] Comment on above: Result Comment: This test is not yet approved or cleared by the [place] FDA. When there are no FDA-approved or cleared tests available, and other criteria are met, FDA can make tests available under an emergency access mechanism called an Emergency Use Authorization (EUA). The EUA for this test is supported by the Commercial Loan Underwriter of Health and Human Service's (HHS's) declaration [...] used). Performed By: #### C VDTB #### [facility] [address] [place] [address] Jalyn Noble US JO ANN DOP LEG [...] by: JORDAN RUTLEDGE Date: 2021-02-09 16:35 Normal [facility] Vital Signs Date Time Vital Sign Value Performing Clinician Facility 05-22-2025 14:33-0400 Body height 172.7 cm Leela Bocanegra [employer] Work Phone: [facility] 05-22-2025 14:33-0400 Body mass index (BMI) [Ratio] 45.31 kg/m2 Leela Bocanegra [employer] Work Phone: [facility] 05-22-2025 14:33-0400 Body weight 135.17 kg Leela Bocanegra [employer] Work Phone: [facility] 05-22-2025 14:33-0400 Diastolic blood pressure 64 mm[Hg] Leela Bocanegra [employer] Work Phone: [facility] 05-22-2025 14:33-0400 Heart rate 80 /min Leela Bocanegra [employer] Work Phone: [facility] 05-22-2025 14:33-0400 Respiratory rate 17 /min Leela Bocanegra [employer] Work Phone: [facility] 05-22-2025 14:33-0400 SaO2% (BldA) [Mass fraction] 94 % Leela Bocanegra [employer] Work Phone: [facility] 05-22-2025 14:33-0400 Systolic blood pressure 136 mm[Hg] Leela Bocanegra [employer] Work Phone: [facility] 05-05-2025 13:34-0400 Body weight 137.43 kg Komal Schaffer II Work Phone: [facility] 05-05-2025 13:34-0400 Diastolic blood pressure 98 mm[Hg] Komal Schaffer II Work Phone: [facility] 05-05-2025 13:34-0400 Heart rate 105 /min Komal Schaffer II Work Phone: [facility] 05-05-2025 13:34-0400 SaO2% (BldA) [Mass fraction] 94 % Komal Schaffer II Work Phone: [facility] 05-05-2025 13:34-0400 Systolic blood pressure 176 mm[Hg] Komal Schaffer II Work Phone: [facility] 04-24-2025 14:34-0400 Body height 172.7 cm Real Og DPM Work Phone: [facility] 04-24-2025 14:34-0400 Body mass index (BMI) [Ratio] 47.14 kg/m2 Real Og DPM Work Phone: [facility] 04-24-2025 14:34-0400 Body weight 140.62 kg Real Og DPM Work Phone: [facility] 04-24-2025 14:34-0400 Respiratory rate 16 /min Real Og DPM Work Phone: [facility] 04-01-2025 11:37-0400 Body height 172.7 cm Leela Bocanegra [employer] Work Phone: [facility] 04-01-2025 11:37-0400 Body mass index (BMI) [Ratio] 47.14 kg/m2 Leela Bocanegra [employer] Work Phone: [facility] 04-01-2025 11:37-0400 Body weight 140.62 kg Leela Bocanegra [employer] Work Phone: [facility] 04-01-2025 11:37-0400 Diastolic blood pressure 68 mm[Hg] Leela Daljit [employer] Work Phone: [facility] 04-01-2025 11:37-0400 Heart rate 80 /min Leela Daljit [employer] Work Phone: [facility] 04-01-2025 11:37-0400 Respiratory rate 17 /min Leela [place] [employer] Work Phone: [facility] 04-01-2025 11:37-0400 SaO2% (BldA) [Mass fraction] 94 % Leela Daljit [employer] Work Phone: [facility] 04-01-2025 11:37-0400 Systolic blood pressure 138 mm[Hg] Leela Daljit [employer] Work Phone: [facility] 03-18-2025 10:09-0400 Body height 172.72 cm Komal Schaffer II Work Phone: [facility] 03-18-2025 10:09-0400 Body mass index (BMI) [Ratio] 46.7 kg/m2 Komal Schaffer II Work Phone: [facility] 03-18-2025 10:09-0400 Body weight 139.4 kg Komal Schaffer II Work Phone: [facility] 02-18-2025 11:45-0400 Body height 172.7 cm Leela [place] [employer] Work Phone: [facility] 02-18-2025 11:45-0400 Body mass index (BMI) [Ratio] 46.38 kg/m2 Leela [place] [employer] Work Phone: [facility] 02-18-2025 11:45-0400 Body weight 138.35 kg Leela Daljit [employer] Work Phone: [facility] 02-18-2025 11:45-0400 Diastolic blood pressure 78 mm[Hg] Leela Daljit [employer] Work Phone: [facility] 02-18-2025 11:45-0400 Heart rate 84 /min Leela Catalanvely [employer] Work Phone: [facility] 02-18-2025 11:45-0400 Respiratory rate 18 /min Leela Bocanegra [employer] Work Phone: [facility] 02-18-2025 11:45-0400 SaO2% (BldA) [Mass fraction] 94 % Leela Bocanegra [employer] Work Phone: [facility] 02-18-2025 11:45-0400 Systolic blood pressure 124 mm[Hg] Leela Bocanegra [employer] Work Phone: [facility] 02-14-2025 15:29-0400 Body temperature 98.6 [degF] Komal Schaffer II Work Phone: [facility] 02-14-2025 15:29-0400 Diastolic blood pressure 64 mm[Hg] Komal Schaffer II Work Phone: [facility] 02-14-2025 15:29-0400 Heart rate 90 /min Komal Schaffer II Work Phone: [facility] 02-14-2025 15:29-0400 Respiratory rate 16 /min Komal Schaffer II Work Phone: [facility] 02-14-2025 15:29-0400 SaO2% (BldA) [Mass fraction] 95 % Komal Schaffer II Work Phone: [facility] 02-14-2025 15:29-0400 Systolic blood pressure 128 mm[Hg] Komal Schaffer II Work Phone: [facility] 02-14-2025 05:44-0400 Body weight 136.6 kg Komal Schaffer II Work Phone: [facility] 02-13-2025 20:43-0400 Body height 172.72 cm Komal Schaffer II Work Phone: [facility] 02-13-2025 20:19-0400 Body temperature 98.9 [degF] Komal Schaffer II Work Phone: [facility] 02-13-2025 20:19-0400 Diastolic blood pressure 80 mm[Hg] Komal Schaffer II Work Phone: [facility] 02-13-2025 20:19-0400 Heart rate 85 /min Komal Schaffer II Work Phone: [facility] 02-13-2025 20:19-0400 Respiratory rate 21 /min Komal Schaffer II Work Phone: [facility] 02-13-2025 20:19-0400 SaO2% (BldA) [Mass fraction] 95 % Komal Schaffer II Work Phone: [facility] 02-13-2025 20:19-0400 Systolic blood pressure 178 mm[Hg] Komal Schaffer II Work Phone: [facility] 02-13-2025 09:25-0400 Body height 172.72 cm Komal Schaffer II Work Phone: [facility] 02-13-2025 09:25-0400 Body weight 138.34 kg Komal Schaffer II Work Phone: [facility] 01-30-2025 15:04-0400 Body height 172.7 cm Real Og DPM Work Phone: [facility] 01-30-2025 15:04-0400 Body mass index (BMI) [Ratio] 45.92 kg/m2 Real Og DPM Work Phone: [facility] 01-30-2025 15:04-0400 Body weight 136.99 kg Real Og DPM Work Phone: [facility] 01-30-2025 15:04-0400 Respiratory rate 18 /min Real Og DPM Work Phone: [facility] 01-15-2025 09:59-0400 Body height 172.7 cm Willy Leyva PATIENT FINANCIAL COUNSELOR[employer]OVER Work Phone: [facility] 01-15-2025 09:59-0400 Body mass index (BMI) [Ratio] 46.83 kg/m2 Willy Leyva PATIENT FINANCIAL COUNSELOR[employer]OOVER Work Phone: [facility] 01-15-2025 09:59-0400 Body weight 139.71 kg Willy Leyva PATIENT FINANCIAL COUNSELOR-[employer]RE [employer]OOVER Work Phone: [facility] 01-15-2025 09:59-0400 Diastolic blood pressure 56 mm[Hg] Willy Leyva PATIENT FINANCIAL COUNSELOR-[employer]RE [employer]OOVER Work Phone: [facility] 01-15-2025 09:59-0400 Heart rate 84 /min Willy Leyva PATIENT FINANCIAL COUNSELOR-[employer]OVER Work Phone: [facility] 01-15-2025 09:59-0400 Systolic blood pressure 122 mm[Hg] Willy Leyva PATIENT FINANCIAL COUNSELOR-[employer]OOVER Work Phone: [facility] 01-06-2025 12:33-0400 Body mass index (BMI) [Ratio] 46.04 kg/m2 Christopher Chip DO Work Phone: [facility] 01-06-2025 12:33-0400 Body weight 137.35 kg Christopher Chip DO Work Phone: [facility] 01-06-2025 12:33-0400 Diastolic blood pressure 84 mm[Hg] Christopher Chip DO Work Phone: [facility] 01-06-2025 12:33-0400 Heart rate 106 /min Christopher Chip DO Work Phone: [facility] 01-06-2025 12:33-0400 SaO2% (BldA) [Mass fraction] 94 % Christopher Chip DO Work Phone: [facility] 01-06-2025 12:33-0400 Systolic blood pressure 150 mm[Hg] Christopher Chip DO Work Phone: [facility] 01-02-2025 16:24-0400 Body height 172.7 cm Real Og DPM Work Phone: [facility] [facility] 01-02-2025 16:24-0400 Body mass index (BMI) [Ratio] 46.38 kg/m2 Real Brown DPM Work Phone: [facility] 01-02-2025 16:24-0400 Body weight 138.35 kg Real Brown DPM Work Phone: [facility] 01-02-2025 16:24-0400 Respiratory rate 18 /min Real Brown DPM Work Phone: [facility] 12-12-2024 13:44-0400 Body height 172.7 cm Real Brown DPM Work Phone: [facility] 12-12-2024 13:44-0400 Body mass index (BMI) [Ratio] 46.38 kg/m2 Real Brown DPM Work Phone: [facility] 12-12-2024 13:44-0400 Body weight 138.35 kg Real Brown DPM Work Phone: [facility] 12-12-2024 13:44-0400 Respiratory rate 16 /min Real Brown DPM Work Phone: [facility] 12-05-2024 14:41-0400 Body height 172.7 cm Real Brown DPM Work Phone: [facility] 12-05-2024 14:41-0400 Body mass index (BMI) [Ratio] 46.38 kg/m2 Real Brown DPM Work Phone: [facility] 12-05-2024 14:41-0400 Body weight 138.35 kg Real Brown DPM Work Phone: [facility] 12-05-2024 14:41-0400 Respiratory rate 18 /min Real Brown DPM Work Phone: [facility] 12-05-2024 13:59-0400 Body height 172.7 cm Leela Bocanegra [employer] Work Phone: [facility] 12-05-2024 13:59-0400 Body mass index (BMI) [Ratio] 46.44 kg/m2 Leela Bocanegra [employer] Work Phone: [facility] 12-05-2024 13:59-0400 Body weight 138.53 kg Leela Bocanegra [employer] Work Phone: [facility] 12-05-2024 13:59-0400 Diastolic blood pressure 78 mm[Hg] Leela Bocanegra [employer] Work Phone: [facility] 12-05-2024 13:59-0400 Heart rate 95 /min Leela Bocanegra [employer] Work Phone: [facility] 12-05-2024 13:59-0400 Respiratory rate 17 /min Leela Bocanegra [employer] Work Phone: [facility] 12-05-2024 13:59-0400 SaO2% (BldA) [Mass fraction] 95 % Leela Bocanegra [employer] Work Phone: [facility] 12-05-2024 13:59-0400 Systolic blood pressure 132 mm[Hg] Leela Bocanegra [employer] Work Phone: [facility] 11-21-2024 14:45-0400 Body height 172.7 cm Real Og DPM Work Phone: [facility] 11-21-2024 14:45-0400 Body mass index (BMI) [Ratio] 48.05 kg/m2 Real Og DPM Work Phone: [facility] 11-21-2024 14:45-0400 Body weight 143.34 kg Real Og DPM Work Phone: [facility] 11-21-2024 14:45-0400 Respiratory rate 18 /min Real Og DPM Work Phone: [facility] 11-04-2024 11:39-0400 Body height 172.7 cm Willy Leyva PATIENT [employer] Work Phone: [facility] 11-04-2024 11:39-0400 Body mass index (BMI) [Ratio] 47.74 kg/m2 Willy Leyva PATIENT [employer] Work Phone: [facility] 11-04-2024 11:39-0400 Body weight 142.43 kg Willy Leyva PATIENT FIN[employer] COUN[employer] Work Phone: [facility] 11-04-2024 11:39-0400 Diastolic blood pressure 84 mm[Hg] Willy Leyva PATIENT FIN[employer]CIAL COUN[employer] Work Phone: [facility] 11-04-2024 11:39-0400 Heart rate 64 /min Willy Leyva PATIENT [employer] Work Phone: [facility] 11-04-2024 11:39-0400 Systolic blood pressure 166 mm[Hg] Willy Leyva PATIENT FIN[employer]CIAL COUN[employer] Work Phone: [facility] 10-11-2024 15:02-0500 Body height 172.7 cm Jimena Rice [facility] 10-11-2024 15:02-0500 Body mass index (BMI) [Ratio] 47.14 kg/m2 Jimena Rice [facility] 10-11-2024 15:02-0500 [facility] 15:02-0500 Diastolic blood pressure 80 mm[Hg] Jimena Rice [facility] 10-11-2024 15:02-0500 Heart rate 63 /min Jimena Rice [facility] 10-11-2024 15:02-0500 Systolic blood pressure 148 mm[Hg] Jimena Rice [facility] 10-09-2024 10:03-0500 Body height 172.7 cm Leela Bocanegra [employer] Work Phone: [facility] 10-09-2024 10:03-0500 Body mass index (BMI) [Ratio] 47.35 kg/m2 Leela Bocanegra [employer] Work Phone: [facility] 10-09-2024 10:03-0500 Body weight 141.25 kg Leela Bocanegra [employer] Work Phone: [facility] 10-09-2024 10:03-0500 Diastolic blood pressure 82 mm[Hg] Leela Bocanegra [employer] Work Phone: [facility] 10-09-2024 10:03-0500 Heart rate 46 /min Leela Bocanegra [employer] Work Phone: [facility] 10-09-2024 10:03-0500 Respiratory rate 17 /min Leela Bocanegra [employer] Work Phone: [facility] 10-09-2024 10:03-0500 SaO2% (BldA) [Mass fraction] 96 % Leela Bocanegra [employer] Work Phone: [facility] 10-09-2024 10:03-0500 Systolic blood pressure 186 mm[Hg] Leela [place] [employer] Work Phone: [facility] 09-17-2024 14:47-0500 Body height 172.7 cm Aide Hemmer PA Work Phone: [facility] 09-17-2024 14:47-0500 Body mass index (BMI) [Ratio] 47.59 kg/m2 Aide Hemmer PA Work Phone: [facility] 09-17-2024 14:47-0500 Body weight 141.98 kg Aide Hemmer PA Work Phone: [facility] 09-17-2024 14:47-0500 Diastolic blood pressure 62 mm[Hg] Aide Hemmer PA Work Phone: [facility] 09-17-2024 14:47-0500 Heart rate 83 /min Aide Hemmer PA Work Phone: [facility] 09-17-2024 14:47-0500 Respiratory rate 18 /min Aide Hemmer PA Work Phone: [facility] 09-17-2024 14:47-0500 SaO2% (BldA) [Mass fraction] 93 % Aide Hemmer PA Work Phone: [facility] 09-17-2024 14:47-0500 Systolic blood pressure 106 mm[Hg] Aide Hemmer PA Work Phone: [facility] 09-13-2024 11:19-0500 Body temperature 98.5 [degF] Komal Schaffer II Work Phone: [facility] 09-13-2024 11:19-0500 Diastolic blood pressure 65 mm[Hg] Komal Schaffer II Work Phone: [facility] 09-13-2024 11:19-0500 Heart rate 76 /min Komal Schaffer II Work Phone: [facility] 09-13-2024 11:19-0500 Respiratory rate 16 /min Komal Schaffer II Work Phone: [facility] 09-13-2024 11:19-0500 SaO2% (BldA) [Mass fraction] 94 % Komal Schaffer II Work Phone: [facility] 09-13-2024 11:19-0500 Systolic blood pressure 147 mm[Hg] Komal Schaffer II Work Phone: [facility] 09-13-2024 06:00-0500 Body weight 137.5 kg Komal Schaffer II Work Phone: [facility] 09-12-2024 15:45-0500 Body height 172.72 cm Komal Schaffer II Work Phone: [facility] 09-12-2024 08:26-0500 Inhaled oxygen flow rate 2 L/min Komal Schaffer II Work Phone: [facility] 09-11-2024 16:44-0500 Diastolic blood pressure 81 mm[Hg] Komal Schaffer II Work Phone: [facility] 09-11-2024 16:44-0500 Heart rate 66 /min Komal Schaffer II Work Phone: [facility] 09-11-2024 16:44-0500 Inhaled oxygen flow rate 2 L/min Komal Schaffer II Work Phone: [facility] 09-11-2024 16:44-0500 Respiratory rate 22 /min Komal Schaffer II Work Phone: [facility] 09-11-2024 16:44-0500 SaO2% (BldA) [Mass fraction] 96 % Komal Schaffer II Work Phone: [facility] 09-11-2024 16:44-0500 Systolic blood pressure 196 mm[Hg] Komal Schaffer II Work Phone: [facility] 09-11-2024 09:52-0500 Body height 172.72 cm Komal Schaffer II Work Phone: [facility] 09-11-2024 09:52-0500 Body temperature 98.2 [degF] Komal Schaffer II Work Phone: [facility] 09-11-2024 09:52-0500 Body weight 139.7 kg Komal Schaffer II Work Phone: [facility] 07-31-2024 12:00-0500 Body temperature 98.2 [degF] Komal Schaffer II Work Phone: [facility] 07-31-2024 12:00-0500 Diastolic blood pressure 62 mm[Hg] Komal Schaffer II Work Phone: [facility] 07-31-2024 12:00-0500 Heart rate 60 /min Komal Schaffer II Work Phone: [facility] 07-31-2024 12:00-0500 Respiratory rate 16 /min Komal Schaffer II Work Phone: [facility] 07-31-2024 12:00-0500 SaO2% (BldA) [Mass fraction] 95 % Komal Schaffer II Work Phone: [facility] 07-31-2024 12:00-0500 Systolic blood pressure 128 mm[Hg] Komal Schaffer II Work Phone: [facility] 07-31-2024 05:53-0500 Body weight 136.3 kg Komal Schaffer II Work Phone: [facility] 07-28-2024 18:13-0500 Body height 172.72 cm Komal Schaffer II Work Phone: [facility] 07-24-2024 08:30-0500 Body height 172.7 cm Leela Bocanegra [employer] Work Phone: [facility] 07-24-2024 08:30-0500 Body mass index (BMI) [Ratio] 46.5 kg/m2 Leela Bocanegra [employer] Work Phone: [facility] 07-24-2024 08:30-0500 Body weight 138.71 kg Leela Bocanegra [employer] Work Phone: [facility] 07-24-2024 08:30-0500 Diastolic blood pressure 82 mm[Hg] Leela Daljit [employer] Work Phone: [facility] 07-24-2024 08:30-0500 Heart rate 63 /min Leela Bocanegra [employer] Work Phone: [facility] 07-24-2024 08:30-0500 Respiratory rate 18 /min Leela [place] [employer] Work Phone: [facility] 07-24-2024 08:30-0500 SaO2% (BldA) [Mass fraction] 93 % Leela Bocanegra [employer] Work Phone: [facility] 07-24-2024 08:30-0500 Systolic blood pressure 122 mm[Hg] Leela Bocanegra [employer] Work Phone: [facility] 07-12-2024 12:00-0500 Body temperature 98.6 [degF] Komal Schaffer II Work Phone: [facility] 07-12-2024 12:00-0500 Diastolic blood pressure 79 mm[Hg] Komal Schaffer II Work Phone: [facility] 07-12-2024 12:00-0500 Heart rate 76 /min Komal Schaffer II Work Phone: [facility] 07-12-2024 12:00-0500 Respiratory rate 20 /min Komal Schaffer II Work Phone: [facility] 07-12-2024 12:00-0500 SaO2% (BldA) [Mass fraction] 99 % Komal Schaffer II Work Phone: [facility] 07-12-2024 12:00-0500 Systolic blood pressure 171 mm[Hg] Komal Schaffer II Work Phone: [facility] 07-12-2024 06:00-0500 Body weight 137.4 kg Komal Schaffer II Work Phone: [facility] 07-10-2024 14:42-0500 Body height 172.72 cm Komal Schaffer II Work Phone: [facility] 07-10-2024 08:28-0500 Inhaled oxygen flow rate 2 L/min Komal Schaffer II Work Phone: [facility] 07-09-2024 20:09-0500 Diastolic blood pressure 74 mm[Hg] Komal Schaffer II Work Phone: [facility] 07-09-2024 20:09-0500 Heart rate 57 /min Komal Schaffer II Work Phone: [facility] 07-09-2024 20:09-0500 Respiratory rate 18 /min Komal Schaffer II Work Phone: [facility] 07-09-2024 20:09-0500 SaO2% (BldA) [Mass fraction] 95 % Komal Schaffer II Work Phone: [facility] 07-09-2024 20:09-0500 Systolic blood pressure 168 mm[Hg] Komal Schaffer II Work Phone: [facility] 07-09-2024 18:53-0500 Body height 172.72 cm Komalescobar Schaffer II Work Phone: [facility] 07-09-2024 18:53-0500 Body weight 139.7 kg Komalescobar Schaffer II Work Phone: [facility] 07-09-2024 15:52-0500 Body temperature 98.9 [degF] Komal Schaffer II Work Phone: [facility] 07-04-2024 05:48-0500 Diastolic blood pressure 75 mm[Hg] Komal Schaffer II Work Phone: [facility] 07-04-2024 05:48-0500 Systolic blood pressure 133 mm[Hg] Komal Schaffer II Work Phone: [facility] 07-04-2024 05:05-0500 Body weight 140.3 kg Komal Schaffer II Work Phone: [facility] 07-04-2024 05:00-0500 Body temperature 97.4 [degF] Komal Schaffer II Work Phone: [facility] 07-04-2024 05:00-0500 Heart rate 64 /min Komal Schaffer II Work Phone: [facility] 07-04-2024 05:00-0500 Respiratory rate 16 /min Komal Schaffer II Work Phone: [facility] 07-04-2024 05:00-0500 SaO2% (BldA) [Mass fraction] 95 % Komal Schaffer II Work Phone: [facility] 07-03-2024 07:59-0500 Body height 172.72 cm Komal Schaffer II Work Phone: [facility] 06-22-2024 11:25-0400 Diastolic blood pressure 71 mm[Hg] II Komal Schaffer Work Phone: [facility] 06-22-2024 11:25-0400 Heart rate 54 /min II Komalescobar Schaffer Work Phone: [facility] 06-22-2024 11:25-0400 Respiratory rate 18 /min II Komalescobar Schaffer Work Phone: [facility] 06-22-2024 11:25-0400 SaO2% (BldA) [Mass fraction] 97 % II Komal Schaffer Work Phone: [facility] 06-22-2024 11:25-0400 Systolic blood pressure 112 mm[Hg] II Komal Schaffer Work Phone: [facility] 06-22-2024 08:00-0400 Body temperature 97.4 [degF] II Komal Schaffer Work Phone: [facility] 06-22-2024 05:35-0400 Body weight 140.6 kg II Komal Schaffer Work Phone: [facility] 06-20-2024 14:56-0400 Body height 172.72 cm II Komal Schaffer Work Phone: [facility] 06-19-2024 23:54-0400 Inhaled oxygen concentration 21 % II Komal Schaffer Work Phone: [facility] 06-19-2024 14:41-0400 Body height 172.72 cm II Komal Schaffer Work Phone: [facility] 06-19-2024 14:41-0400 Body temperature 98 [degF] II Komal Schaffer Work Phone: [facility] 06-19-2024 14:41-0400 Body weight 143.6 kg II Komal Schaffer Work Phone: [facility] 06-19-2024 14:41-0400 Diastolic blood pressure 74 mm[Hg] II Komal Schaffer Work Phone: [facility] 06-19-2024 14:41-0400 Heart rate 59 /min II Komal Schaffer Work Phone: [facility] 06-19-2024 14:41-0400 Respiratory rate 16 /min II Komal Schaffer Work Phone: [facility] 06-19-2024 14:41-0400 SaO2% (BldA) [Mass fraction] 96 % II Komal Schaffer Work Phone: [facility] 06-19-2024 14:41-0400 Systolic blood pressure 175 mm[Hg] II Komal Schaffer Work Phone: [facility] 06-13-2024 14:10-0400 Body height 172.7 cm Real Og DPM Work Phone: [facility] 06-13-2024 14:10-0400 Body mass index (BMI) [Ratio] 49.42 kg/m2 Real Og DPM Work Phone: [facility] 06-13-2024 14:10-0400 Body weight 147.42 kg Real Og DPM Work Phone: [facility] 06-13-2024 14:10-0400 Diastolic blood pressure 79 mm[Hg] Real Og DPM Work Phone: [facility] 06-13-2024 14:10-0400 Heart rate 84 /min Real Og DPM Work Phone: [facility] 06-13-2024 14:10-0400 Systolic blood pressure 126 mm[Hg] Real Og DPM Work Phone: [facility] 05-27-2024 12:55-0400 Body mass index (BMI) [Ratio] 49.42 kg/m2 Christopher Chip DO Work Phone: [facility] 05-27-2024 12:55-0400 Body weight 147.42 kg Christopher Chip DO Work Phone: [facility] 05-27-2024 12:55-0400 Diastolic blood pressure 85 mm[Hg] Christopher Chip DO Work Phone: [facility] 05-27-2024 12:55-0400 Heart rate 75 /min Christopher Chip DO Work Phone: [facility] 05-27-2024 12:55-0400 SaO2% (BldA) [Mass fraction] 90 % Christopher Chip DO Work Phone: [facility] 05-27-2024 12:55-0400 Systolic blood pressure 137 mm[Hg] Christopher Chip DO Work Phone: [facility] 02-12-2024 17:05-0400 Diastolic blood pressure 69 mm[Hg] II Komal Schaffer Work Phone: [facility] 02-12-2024 17:05-0400 Heart rate 53 /min II Komal Schaffer Work Phone: [facility] 02-12-2024 17:05-0400 Respiratory rate 22 /min II Komal Schaffer Work Phone: [facility] 02-12-2024 17:05-0400 SaO2% (BldA) [Mass fraction] 98 % II Komal Schaffer Work Phone: [facility] 02-12-2024 17:05-0400 Systolic blood pressure 156 mm[Hg] II Kmoal Schaffer Work Phone: [facility] 02-12-2024 13:33-0400 Body height 172.72 cm II Komalescobar Schaffer Work Phone: [facility] 02-12-2024 13:33-0400 Body temperature 98.1 [degF] II Komal Schaffer Work Phone: [facility] 02-12-2024 13:33-0400 Body weight 142.3 kg II Komal Schaffer Work Phone: [facility] 10-05-2023 13:16-0500 Body height 177.8 cm Komal Schaffer MD Work Phone: [facility] 10-05-2023 13:16-0500 Body mass index (BMI) [Ratio] 45.2 kg/m2 Komal Schaffer MD Work Phone: [facility] 10-05-2023 13:16-0500 Body weight 142.88 kg Komal Schaffer MD Work Phone: [facility] 10-05-2023 13:16-0500 Diastolic blood pressure 82 mm[Hg] Komal Schaffer MD Work Phone: [facility] 10-05-2023 13:16-0500 Heart rate 58 /min Komal Schaffer MD Work Phone: [facility] 10-05-2023 13:16-0500 SaO2% (BldA) [Mass fraction] 96 % Komal Schaffer MD Work Phone: [facility] 10-05-2023 13:16-0500 Systolic blood pressure 134 mm[Hg] Komal Schaffer MD Work Phone: [facility] 09-20-2023 12:13-0500 Body height 172.7 cm Baltazar Hoover DO Work Phone: [facility] 09-20-2023 12:13-0500 Body mass index (BMI) [Ratio] 47.59 kg/m2 Baltazar Hoover DO Work Phone: [facility] 09-20-2023 12:13050 Body weight 141.98 kg Baltazar Hoover DO Work Phone: [facility] 09-20-2023 12:13-0500 Diastolic blood pressure 74 mm[Hg] Baltazar Hoover DO Work Phone: [facility] 09-20-2023 12:13-0500 Heart rate 53 /min Baltazar Hoover DO Work Phone: [facility] 09-20-2023 12:13-0500 Systolic blood pressure 130 mm[Hg] Baltazar Hoover DO Work Phone: [facility] 06-10-2023 05:00-0400 Body temperature 97.2 [degF] II Komal Schaffer Work Phone: [facility] 06-10-2023 05:00-0400 Diastolic blood pressure 70 mm[Hg] II Komal Schaffer Work Phone: [facility] 06-10-2023 05:00-0400 Heart rate 57 /min GEOVANY Schaffer Work Phone: [facility] 06-10-2023 05:00-0400 Respiratory rate 18 /min II Komal Schaffer Work Phone: [facility] 06-10-2023 05:00-0400 SaO2% (BldA) [Mass fraction] 95 % II Komal Schaffer Work Phone: [facility] 06-10-2023 05:00-0400 Systolic blood pressure 145 mm[Hg] II Komal Schaffer Work Phone: [facility] 06-06-2023 12:31-0400 Body height 172.72 cm II Komal Schaffer Work Phone: [facility] 06-04-2023 06:00-0400 Body weight 138.9 kg II Komal Schaffer Work Phone: [facility] 05-25-2023 00:00-0400 Inhaled oxygen flow rate 2 L/min II Komal Schaffer Work Phone: [facility] 05-21-2023 13:47-0400 Body temperature 98.4 [degF] II Komal Schaffer Work Phone: [facility] 05-21-2023 13:47-0400 Diastolic blood pressure 82 mm[Hg] II Komal Schaffer Work Phone: [facility] 05-21-2023 13:47-0400 Heart rate 60 /min II Komal Schaffer Work Phone: [facility] 05-21-2023 13:47-0400 Inhaled oxygen flow rate 2 L/min II Komal Schaffer Work Phone: [facility] 05-21-2023 13:47-0400 Respiratory rate 20 /min II Komal Schaffer Work Phone: [facility] 05-21-2023 13:47-0400 SaO2% (BldA) [Mass fraction] 94 % II Komal Schaffer Work Phone: [facility] 05-21-2023 13:47-0400 Systolic blood pressure 145 mm[Hg] II Komal Schaffer Work Phone: [facility] 05-21-2023 05:35-0400 Body weight 145 kg II Komal Schaffer Work Phone: [facility] 05-18-2023 12:18-0400 Body height 175.26 cm II Komal Schaffer Work Phone: [facility] 05-15-2023 18:00-0400 Inhaled oxygen concentration 4 % II Komal Schaffer Work Phone: [facility] 10-18-2022 08:30-0500 Body temperature 97.59 [degF] Honorio Vuong MD Work Phone: [facility] 10-18-2022 08:30-0500 Diastolic blood pressure 81 mm[Hg] Honorio Vuong MD Work Phone: [facility] 10-18-2022 08:30-0500 Heart rate 75 /min Honorio Vuong MD Work Phone: [facility] 10-18-2022 08:30-0500 Respiratory rate 20 /min Honorio Vuong MD Work Phone: [facility] 10-18-2022 08:30-0500 SaO2% (BldA) [Mass fraction] 95 % Honorio Vuong MD Work Phone: [facility] 10-18-2022 08:30-0500 Systolic blood pressure 150 mm[Hg] Honorio Vuong MD Work Phone: [facility] 10-17-2022 06:00-0500 Body mass index (BMI) [Ratio] 48.42 kg/m2 Honorio Vuong MD Work Phone: [facility] 10-17-2022 06:00-0500 Body weight 144.44 kg Honorio Vuong MD Work Phone: [facility] 10-15-2022 19:51-0500 Body height 172.7 cm Honorio Vuong MD Work Phone: [facility] 09-07-2022 11:23-0500 Body height 172.72 cm Willy Leyva PATIENT [employer] Work Phone: [facility] [address] DO Work Phone: 09-07-2022 11:23-0500 Body mass index (BMI) [Ratio] 49.72 kg/m2 Willy Leyva PATIENT [employer] Work Phone: [facility] [facility] DO Work Phone: 09-07-2022 11:23-0500 Body surface area Derived from formula 2.52 m2 Willy Talon Leyva PATIENT [employer] Work Phone: [facility] [address] DO Work Phone: 09-07-2022 11:23-0500 Body weight 148.33 kg Willy Talon Leyva PATIENT [employer] Work Phone: [facility] [address] DO Work Phone: 09-07-2022 11:23-0500 Diastolic blood pressure 78 mm[Hg] Willy Talon Leyva PATIENT FIN[employer] Work Phone: [facility] [facility] DO Work Phone: 09-07-2022 11:23-0500 Heart rate 64 /min Willy Leyva PATIENT [employer] Work Phone: [facility] [address] DO Work Phone: 09-07-2022 11:23-0500 Systolic blood pressure 122 mm[Hg] Willy Leyva PATIENT [employer] Work Phone: [facility] [facility] DO Work Phone: 05-06-2022 12:45-0400 Body weight 148.19 kg Celso Peñaloza MD, PhD Work Phone: [facility] 05-06-2022 12:45-0400 Diastolic blood pressure 55 mm[Hg] Celso Peñaloza MD, PhD Work Phone: [facility] 05-06-2022 12:45-0400 Heart rate 67 /min Celso Peñaloza MD, PhD Work Phone: [facility] 05-06-2022 12:45-0400 Systolic blood pressure 132 mm[Hg] Celso Peñaloza MD, PhD Work Phone: [facility] 03-29-2022 11:04-0400 Blood Pressure Location Yoko Leyva Jr. [facility] 03-29-2022 11:04-0400 Diastolic blood pressure 80 mm[Hg] Yoko Leyva Jr. [facility] 03-29-2022 11:04-0400 Heart rate 108 /min Yoko Leyva Jr. [facility] Urology [facility] 03-29-2022 11:04-0400 Respiratory rate 16 /min Yoko Leyva Jr. [facility] 03-29-2022 11:04-0400 Systolic blood pressure 126 mm[Hg] Yoko Leyva Jr. [facility] 03-03-2022 12:59-0400 Blood Pressure Location Yoko Leyva Jr. [facility] 03-03-2022 12:59-0400 Body temperature 97.88 [degF] Yoko Leyva Jr. [facility] 03-03-2022 12:59-0400 BP/Pulse Patient Position Yoko Leyva Jr. [facility] 03-03-2022 12:59-0400 Diastolic blood pressure 60 mm[Hg] Yoko Leyva Jr. [facility] 03-03-2022 12:59-0400 Heart rate 62 /min Yoko Leyva Jr. [facility] 03-03-2022 12:59-0400 Mean blood pressure 74 mm[Hg] Yoko Leyva Jr. [facility] 03-03-2022 12:59-0400 Respiratory rate 16 /min Yoko Leyva Jr. [facility] 03-03-2022 12:59-0400 SaO2% (BldA) [Mass fraction] 97 % Yoko Leyva Jr. [facility] 03-03-2022 12:59-0400 Systolic blood pressure 100 mm[Hg] Yoko Leyva Jr. [facility] 03-03-2022 12:04-0400 Body temperature 98.06 [degF] Yoko Leyva Jr. [facility] 03-03-2022 12:04-0400 Diastolic blood pressure 60 mm[Hg] Yoko Leyva Jr. [facility] 03-03-2022 12:04-0400 Heart rate 63 /min Yoko Leyva Jr. [facility] 03-03-2022 12:04-0400 Mean blood pressure 76 mm[Hg] Yoko Leyva Jr. [facility] 03-03-2022 12:04-0400 SaO2% (BldA) [Mass fraction] 94 % Yoko Leyva Jr. [facility] 03-03-2022 12:04-0400 Systolic blood pressure 106 mm[Hg] Yoko Leyva Jr. [facility] 03-03-2022 11:50-0400 Blood Pressure Location Yoko Leyva Jr. [facility] 03-03-2022 11:50-0400 Body temperature 97.52 [degF] Yoko Lyeva Jr. [facility] 03-03-2022 11:50-0400 Diastolic blood pressure 70 mm[Hg] Yoko Leyva Jr. [facility] 03-03-2022 11:50-0400 Heart rate 58 /min Yoko Leyva Jr. [facility] 03-03-2022 11:50-0400 Respiratory rate 10 /min Yoko Leyva Jr. [facility] 03-03-2022 11:50-0400 SaO2% (BldA) [Mass fraction] 95 % Yoko Leyva Jr. [facility] 03-03-2022 11:50-0400 Systolic blood pressure 141 mm[Hg] Yoko Leyva Jr. [facility] 03-03-2022 11:40-0400 Blood Pressure Location Yoko Leyva Jr. [facility] 03-03-2022 11:40-0400 Respiratory rate 17 /min Yoko Leyva Jr. [facility] 03-03-2022 11:35-0400 Respiratory rate 11 /min Yoko Leyva Jr. [facility] 03-03-2022 11:25-0400 Body temperature 97.16 [degF] Yoko Leyva Jr. [facility] 03-03-2022 11:20-0400 Respiratory rate 26 /min Yoko Leyva Jr. [facility] 03-03-2022 11:15-0400 Respiratory rate 19 /min Yoko Leyva Jr. [facility] 03-03-2022 08:04-0400 Mean blood pressure 86 mm[Hg] Yoko Leyva Jr. [facility] 03-03-2022 08:04-0400 Body temperature 98.42 [degF] Yoko Leyva Jr. [facility] 03-03-2022 08:04-0400 Heart rate 68 /min Yoko Leyva Jr. [facility] 02-17-2022 13:43-0400 Blood Pressure Location Yoko Leyva Jr. [facility] 02-17-2022 13:43-0400 Diastolic blood pressure 69 mm[Hg] Yoko Leyva Jr. [facility] 02-17-2022 13:43-0400 Systolic blood pressure 162 mm[Hg] Yoko Leyva Jr. [facility] 02-17-2022 13:30-0400 Blood Pressure Location Yoko Leyva Jr. [facility] 02-17-2022 13:30-0400 BP/Pulse Patient Position Yoko Leyva Jr. [facility] 02-17-2022 13:30-0400 Diastolic blood pressure 52 mm[Hg] Yoko Leyva Jr. [facility] 02-17-2022 13:30-0400 Heart rate 68 /min Yoko Leyva Jr. [facility] 02-17-2022 13:30-0400 Mean blood pressure 84 mm[Hg] Yoko Leyva Jr. [facility] 02-17-2022 13:30-0400 Respiratory rate 24 /min Yoko Leyva Jr. [facility] 02-17-2022 13:30-0400 SaO2% (BldA) [Mass fraction] 92 % Yoko Leyva Jr. [facility] 02-17-2022 13:30-0400 Systolic blood pressure 149 mm[Hg] Yoko Leyva Jr. [facility] 02-17-2022 13:30-0400 Body temperature 99.32 [degF] Yoko Leyva Jr. [facility] 02-01-2022 11:14-0400 Blood Pressure Location Yoko Leyva Jr. [facility] 02-01-2022 11:14-0400 Diastolic blood pressure 43 mm[Hg] Yoko Leyva Jr. [facility] 02-01-2022 11:14-0400 Heart rate 72 /min Yoko Leyva Jr. [facility] 02-01-2022 11:14-0400 Respiratory rate 16 /min Yoko Leyva Jr. [facility] 02-01-2022 11:14-0400 Systolic blood pressure 133 mm[Hg] Yoko Leyva Jr. [facility] 12-27-2021 12:42-0400 Blood Pressure Location Yoko Leyva Jr. [facility] 12-27-2021 12:42-0400 Diastolic blood pressure 65 mm[Hg] Yoko Leyva Jr. [facility] 12-27-2021 12:42-0400 Heart rate 68 /min Yoko Leyva Jr. [facility] 12-27-2021 12:42-0400 Systolic blood pressure 115 mm[Hg] Yoko Autumn Molina [facility] Encounters Encounter Date Encounter Type Care Provider Facility Start: 05-22-2025 End: 05-22-2025 Office outpatient visit 15 minutes Leela Bocanegra LETTER[employer] SETTER Work Phone: [facility] Comment on above: Pain; Need for vaccination Start: 05-22-2025 End: 05-22-2025 Bamboo flowsheet Leela Bocanegra [employer] Work Phone: [facility] Start: 05-22-2025 End: 05-22-2025 Bamboo flowsheet Leela Bocanegra [employer] Work Phone: [facility] Start: 05-05-2025 End: 05-05-2025 ambulatory Komal Schaffer II Work Phone: [facility] Work Phone: Start: 05-05-2025 End: 05-05-2025 Patient encounter procedure Stanley Ceja DO -[facility] Work Phone: Start: 04-29-2025 End: 04-29-2025 ambulatory Ivan Barnhart Facility: [facility] Start: 04-24-2025 End: 04-24-2025 Patient encounter procedure Real Og DPM Work Phone: [facility] Comment on above: 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 (Primary Dx); Venous insufficiency Start: 04-24-2025 End: 04-24-2025 ambulatory REAL OG Not Available Start: 04-24-2025 End: 04-24-2025 Bamboo flowsheet Real Og DPM Work Phone: [facility] Start: 04-24-2025 End: 04-24-2025 Bamboo flowsheet Realtarah Og DPM Work Phone: [facility] Start: 04-07-2025 End: 04-07-2025 ambulatory France Wyman MD Facility:[facility] Start: 04-01-2025 End: 04-01-2025 Bamboo flowsheet Leela Bocanegra [employer] Work Phone: [facility] Start: 04-01-2025 End: 04-01-2025 Bamboo flowsheet Leela Bocanegra [employer]TER Work Phone: [facility] Start: 04-01-2025 End: 04-01-2025 Office outpatient visit 15 minutes Leela Bocanegra [employer]TER Work Phone: [facility] Comment on above: Gross hematuria (Michelle lissett Dx); Lumbosacral spondylosis without myelopathy Start: 04-01-2025 End: 04-01-2025 Refill Leela Bocanegra [employer] SETTER Work Phone: [facility] Comment on above: Pain Start: 03-18-2025 End: 03-18-2025 ambulatory Komal Schaffer II Work Phone: [facility] Work Phone: Start: 03-18-2025 End: 03-18-2025 Patient encounter procedure Gucci Jacques MD -[facility] Neurosurgery Work Phone: Start: 02-26-2025 End: 02-26-2025 Clinisync Result Encounter Leela Bocanegra [employer]TER Work Phone: [facility] Unsolicited Start: 02-26-2025 End: 02-26-2025 Clinisync Result Encounter Leela Bocanegra [employer] Work Phone: [facility] Unsolicited Start: 02-24-2025 End: 02-24-2025 Clinisync Result Encounter Generic External Data Provider [facility] Unsolicited Start: 02-24-2025 End: 02-24-2025 Clinisync Result Encounter Generic External Data Provider [facility] External [facility] Unsolicited Start: 02-18-2025 End: 02-18-2025 Bamboo flowsheet Leela Bocanegra [employer] Work Phone: [facility] Start: 02-18-2025 End: 02-18-2025 Bamboo flowsheet Leela Bocanegra [employer]TER Work Phone: [facility] Start: 02-18-2025 End: 02-18-2025 Telephone encounter Leela Bocanegra [employer] Work Phone: [facility] Start: 02-18-2025 End: 02-18-2025 ambulatory LEELA BOCANEGRA Not Available Start: 02-18-2025 End: 02-18-2025 Office outpatient visit 25 minutes Leela Bocanegra [employer] Work Phone: [facility] Comment on above: Cellulitis of right lower extremity (Primary Dx); Muscle pain; Trigger middle finger of right hand; Pain Start: 02-13-2025 End: 02-14-2025 ambulatory Jamel Packer Facility:[facility] Start: 02-13-2025 Anticoagulant drug monitoring Jamel Packer DO -[facility] Work Phone: Start: 02-13-2025 Evaluation and management of inpatient Obaydah Greg Ceja MD -[facility] [place] [facility] Work Phone: Start: 02-13-2025 observation encounter Komal kelly II Work Phone: [facility] Work Phone: Start: 01-30-2025 End: 01-30-2025 [...] 01-15-2025 Office outpatient visit 15 minutes Willy [facility] PATIENT FINANCIAL COUNSELOR-TIRE GROOVER Work Phone: [facility] Comment on above: BMI 45.0-49.9, adult (Multi) (Primary Dx); Localized edema Start: 01-15-2025 End: 01-15-2025 ambulatory [facility] Ambulatory Start: 01-06-2025 End: 01-06-2025 Bamboo flowsheet Stanley Felipeett DO Work Phone: [facility] Start: 01-06-2025 End: 01-06-2025 Bamboo flowsheet Christopher [...] 25 minutes Real Og DPM Work Phone: [facility] Comment on above: Laceration of lesser toe of left foot without foreign body present, nail damage status unspecified, initial encounter (Primary Dx); Closed nondisplaced fracture of distal phalanx of left great toe, initial encounter; Venous insufficiency Start: 01-02-2025 End: 01-02-2025 ambulatory REAL OG Not Available Start: 01-02-2025 End: 01-02-2025 Bamboo flowsheet Real Og DPM Work Phone: [facility] Start: 01-02-2025 End: 01-02-2025 Bamboo flowsheet Real Og DPM Work Phone: [facility] Start: 12-30-2024 End: 12-30-2024 ambulatory France Wyman MD Facility:[facility] Start: 12-12-2024 End: 12-12-2024 Bamboo flowsheet Real Og DPM Work Phone: [facility] Start: 12-12-2024 End: 12-12-2024 Bamboo flowsheet Real Og DPM Work Phone: [facility] Start: 12-12-2024 End: 12-12-2024 Office outpatient visit 25 minutes Real Og DPM Work Phone: [facility] Comment on above: Laceration of lesser toe of left foot without foreign body present, nail damage status unspecified, initial encounter (Primary Dx); Closed nondisplaced fracture of distal phalanx of left great toe, initial encounter Start: 12-12-2024 End: 12-12-2024 ambulatory REAL OG Not Available Start: 12-05-2024 End: 12-05-2024 Bamboo flowsheet Leela Bocanegra [employer]TER Work Phone: [facility] Start: 12-05-2024 End: 12-05-2024 Bamboo flowsheet Leela Bocanegra [employer] Work Phone: [facility] Start: 12-05-2024 End: 12-05-2024 Office outpatient visit 25 minutes Real Og DPM Work Phone: [facility] Comment on above: Laceration [...] DPM Work Phone: [facility] Start: 11-21-2024 End: 11-21-2024 Bamboo flowsheet Real Og DPM Work Phone: [facility] Start: 11-11-2024 End: 11-11-2024 ambulatory [facility] Ambulatory Start: 11-04-2024 End: 11-04-2024 Office outpatient visit 25 minutes [facility] PATIENT FINANCIAL COUNSELOR-TIRE GROOVER Work Phone: [facility] Comment on above: Localized edema (Michelle lissett Dx); Essential hypertension; BMI 45.0-49.9, adult (Multi); Paroxysmal atrial fibrillation (Multi) Start: 11-04-2024 End: 11-04-2024 ambulatory [facility] Ambulatory Start: 10-29-2024 End: 10-29-2024 ambulatory LEELA BOCANEGRA Not Available Start: 10-28-2024 End: 10-28-2024 ambulatory France Wyman MD Facility:[facility] Start: 10-22-2024 End: 10-22-2024 Clinisync Result Encounter Generic External Data Provider [facility] External Department Unsolicited Start: 10-22-2024 End: 10-22-2024 Clinisync Result Encounter Generic External Data Provider [facility] External Department Unsolicited Start: 10-21-2024 End: 10-21-2024 ambulatory France Wyman MD Facility: [facility] Start: 10-15-2024 End: 10-15-2024 Bamboo flowsheet Mookie Belkis [employer]TER Work Phone: [facility] Start: 10-15-2024 End: 10-15-2024 Bamboo flowsheet Mookie Belkis [employer] Work Phone: [facility] Start: 10-15-2024 End: 10-15-2024 ambulatory MOOKIE BELKIS Not Available Start: 10-11-2024 End: 10-11-2024 Professional / ancillary services management Jimena Rice [facility] Comment on above: Paroxysmal atrial fi brillation (Multi) (Primary Dx); High risk medication use Start: 10-11-2024 End: 10-11-2024 ambulatory [facility] Ambulatory Start: 10-09-2024 End: 10-09-2024 Bamboo flowsheet Leela Bocanegra [employer] SETTER Work Phone: [facility] Start: 10-09-2024 End: 10-09-2024 Bamboo flowsheet Leela Bocanegra [employer]TER Work Phone: [facility] Start: 10-09-2024 End: 10-09-2024 Office outpatient visit 25 minutes Leela Bocanegra [employer]TER Work Phone: [facility] Comment on above: Benign essential hyp ertension (CMS/HCC) (Primary Dx); Yeast dermatitis; Bradycardia Start: 10-09-2024 End: 10-09-2024 ambulatory ELELA BOCANEGRA Not Available Start: 10-07-2024 End: 10-07-2024 ambulatory France Wyman MD Facility: [facility] Start: 09-24-2024 End: 09-24-2024 ambulatory [facility] Ambulatory Start: 09-18-2024 End: 09-18-2024 Telephone encounter Salma Monday [employer] TE[employer] LEADER Work Phone: [facility] Start: 09-17-2024 End: 09-17-2024 ambulatory AIDE FERREIRA Not Available Start: 09-17-2024 End: 09-17-2024 Office outpatient visit 25 minutes Aide LINN Work Phone: [facility] Comment on [...] 09-16-2024 End: 09-16-2024 ambulatory France Wyman MD Facility:[facility] Start: 09-11-2024 Evaluation and management of inpatient Komal Schaffer II Work Phone: [facility] Work Phone: Start: 09-11-2024 End: 09-13-2024 observation encounter Komal Schaffer II Work Phone: [facility] Work Phone: Start: 09-11-2024 End: 09-13-2024 Orders Only Leela Bocanegra [employer] SETTER Work Phone: [facility] Comment on above: Myasthenia gravis (C MS/HCC) Start: 09-11-2024 End: 09-13-2024 Komal Schaffer II Work Phone: [facility] [place] [facility] Work Phone: Start: 09-09-2024 End: 09-09-2024 ambulatory France Wyman MD Facility:[facility] Start: 07-31-2024 Komal Schaffer I I Work Phone: [facility] Work Phone: Start: 07-30-2024 Komal Schaffer I I Work Phone: [facility] Neuro[facility] Work Phone: Start: 07-28-2024 End: 07-31-2024 Evaluation and management of inpatient Gucci Jacques Facility:[facility] Start: 07-28-2024 End: 07-31-2024 Komal Schaffer II Work Phone: [facility] [place] [facility] Work Phone: Start: 07-24-2024 End: 07-24-2024 Bamboo flowsheet Leela Bocanegra [employer] SETTER Work Phone: [facility] Start: 07-24-2024 End: 07-24-2024 Bamboo flowsheet Leela Bocanegra [employer]TER Work Phone: [facility] Start: 07-24-2024 End: 07-24-2024 Office outpatient visit 25 minutes Leela Bocanegra [employer] SETTER Work Phone: [facility] Comment on above: Localized edema (Michelle lissett Dx); Stage 3a chronic kidney disease (HCC) (CMS/HCC); Lumbosacral spondylosis without myelopathy; Acute non-recurrent sinusitis of other sinus Start: 07-24-2024 End: 07-24-2024 ambulatory LEELA BOCANEGRA Not Available Start: 07-15-2024 End: 07-17-2024 Dilia Schaffer MD Work Phone: [facility] Comment on above: Cervical stenosis of spinal canal Start: 07-09-2024 End: 07-12-2024 Evaluation and management of inpatient Komal Schaffer II Work Phone: [facility] [place] [facility] Work Phone: Start: 07-09-2024 End: 07-12-2024 Komal Schaffer II Work Phone: [facility] [place] [facility] Work Phone: Start: 07-01-2024 Non-patient / Non-visit Komal Schaffer II Work Phone: [facility] Work Phone: Start: 07-01-2024 Komal Schaffer I I Work Phone: [facility] Work Phone: Start: 06-24-2024 Non-patient / Non-visit Komal Schaffer II Work Phone: [facility] Work Phone: Start: 06-24-2024 Komal Schaffer I I Work Phone: [facility] Work Phone: Start: 06-22-2024 Non-patient / Non-visit Komal Schaffer II Work Phone: [facility] Work Phone: Start: 06-22-2024 End: 07-04-2024 Komal Schaffer II Work Phone: [facility] [place] [facility] Work Phone: Start: 06-22-2024 End: 07-04-2024 Evaluation and management of inpatient II Komal Schaffer Work Phone: [facility] [place] [facility] Work Phone: Start: 06-21-2024 Non-patient / Non-visit II Kenroy socristóbal Schaffer Work Phone: [facility] Work Phone: Start: 06-21-2024 Komal Schaffer I I Work Phone: [facility] Work Phone: Start: 06-19-2024 Non-patient / Non-visit II Kenroy Schaffer Work Phone: [facility] Pulmonary Disease Work Phone: Start: 06-19-2024 Komal Schaffer I I Work Phone: [facility] Work Phone: Start: 06-19-2024 End: 06-22-2024 Komal Schaffer II Work Phone: [facility] [place] [facility] Work Phone: Start: 06-19-2024 End: 06-22-2024 Evaluation and management of inpatient II Komal Schaffer Work Phone: [facility] [place] [facility] Work Phone: Start: 06-13-2024 End: [...] insufficiency Start: 06-13-2024 End: 06-13-2024 ambulatory REAL OG Not Available Start: 06-10-2024 End: 06-10-2024 ambulatory France Wyman MD Facility: [facility] Start: 05-27-2024 End: 05-27-2024 Bamboo flowsheet Stanley Saunders DO Work Phone: [facility] Start: 05-27-2024 End: 05-27-2024 Bamboo flowsheet Stanley Saunders DO Work Phone: [facility] [address] Start: 05-27-2024 End: 05-27-2024 Office outpatient visit 25 minutes Stanley Saunders DO Work Phone: [facility] Comment on above: Myasthenia gravis (C MS/HCC) (Primary Dx); Class 3 severe obesity due to excess calories with serious comorbidity and body mass index (BMI) of 45.0 to 49.9 in adult (CMS/HCC) Start: 05-27-2024 End: 05-27-2024 ambulatory STANLEY SAUNDERS Not Available Start: 02-12-2024 End: 02-12-2024 Emergency department patient visit II Komal Schaffer Work Phone: [facility]-Emergency Room Work Phone: Start: 10-05-2023 End: 10-05-2023 Assay of hemosiderin, quant Komal Schaffer MD Work Phone: [facility] Work Phone: Start: 10-05-2023 End: 10-05-2023 Patient encounter procedure Komal Schaffer MD Work Phone: [facility] Comment on above: Routine general medi nabila examination at health care facility (Primary Dx); ACP (advance care planning); Osteoarthritis of spine with radiculopathy, cervical region; Type 2 diabetes mellitus with diabetic neuropathy, without long-term current use of insulin (CMS/HCC); Type 2 diabetes 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, without long-term current use of insulin (CMS/[facility]); Myasthenia gravis without (acute) exacerbation (G70.00); Atherosclerosis of [place] artery of both lower extremities with intermittent claudication (CMS/[facility]); Morbid (severe) obesity due to excess calories (E66.01); Body mass index [BMI] 45.0-49.9, adult (Z68.42) Start: 10-04-2023 Bamboo flowsheet Alem AMBROSIO [facility] Start: 10-04-2023 Bamboo flowsheet Alem Garcia TA [facility] Start: 10-04-2023 End: 10-04-2023 ambulatory Alem Vanegashola X RAY TECHNOLOGIST [facility] Comment on above: Bilateral leg weakne ss (Primary Dx); Difficulty walking; Right leg pain Start: 09-28-2023 End: 09-28-2023 ambulatory Anderson Ray [employer] RAY TECHNOLOGIST [facility] Comment on above: Bilateral leg weakne ss (Primary Dx); Difficulty walking; Right leg pain Start: 09-25-2023 Telephone encounter Komal kelly MD Work Phone: [facility] Start: 09-21-2023 End: 09-21-2023 ambulatory Anderson Ray X RAY TECHNOLOGIST [facility] Comment on above: Bilateral leg weakne ss (Primary Dx); Difficulty walking; Right leg pain Start: 09-20-2023 End: 09-20-2023 Office outpatient visit 25 minutes Baltazar Hoover DO Work Phone: [facility] Comment on above: Paroxysmal atrial fi brillation (CMS/HCC); Pulmonary embolism, unspecified chronicity, unspecified pulmonary embolism type, unspecified whether acute cor pulmonale present (CMS/HCC); Myasthenia gravis (CMS/HCC); High risk medication use; Essential hypertension; Mixed hyperlipidemia; Morbid obesity with BMI of 45.0-49.9, adult (CMS/HCC) Start: 05-21-2023 End: 06-10-2023 Evaluation and management of inpatient II Komal Schaffer Work Phone: [facility] [place] [facility] Work Phone: Start: 05-19-[address] Komal Schaffer II Facility:[id number] Start: 05-18-[address] Komal Schaffer II Facility:[id number] Start: 05-16-[address] Komal Schaffer II Facility:[id number] Start: 05-10-2023 End: 05-21-2023 Evaluation and management of inpatient II Komal Schaffer Work Phone: [facility] [place] [facility] Work Phone: Start: 03-09-2023 End: 03-09-2023 ambulatory II Komal Schaffer Work Phone: [facility] Work Phone: Start: 03-09-2023 End: 03-09-2023 Departed Referred II Komal Schaffer Work Phone: [facility] Start: 10-15-2022 End: 10-18-2022 Evaluation and management of inpatient KOMAL SCHAFFER [facility] Start: 10-15-2022 End: 10-18-2022 Evaluation and management of inpatient Honorio Vuong MD Work Phone: [facility] Start: 09-07-2022 Office outpatient vi sit 25 minutes Willy Leyva PATIENT FINANCIAL COUNSELOR-TIRE GROOVER Work Phone: [facility] [address] DO Work Phone: Start: 09-07-2022 Patient encounter procedure Willy Leyva PATIENT FINANCIAL COUNSELOR-TIRE GROOVER Work Phone: [facility] [address] DO Work Phone: Start: 09-07-[address] Komla Schaffer II Facility: Start: 08-30-2022 End: 08-30-2022 ambulatory II Komal Schaffer Work Phone: [facility] Work Phone: Start: 08-30-2022 End: 08-30-2022 Departed Referred II Komal Schaffer Work Phone: [facility] Start: 06-28-2022 End: 06-28-2022 ambulatory II Komal Schaffer Work Phone: [facility] Work Phone: Start: 06-28-2022 End: 06-28-2022 Departed Referred II Komal Schaffer Work Phone: [facility] Start: 06-14-2022 End: 06-14-2022 ambulatory II Komal Schaffer Work Phone: [facility] Work Phone: Start: 06-14-2022 End: 06-14-2022 Departed Referred II Komal Schaffer Work Phone: [facility] Start: 05-06-2022 ambulatory Celso Peñaloza MD , PhD Work Phone: Urology Start: 05-06-2022 End: 05-06-2022 Patient encounter procedure Celso Peñaloza MD, PhD Work Phone: Urology Comment on above: Malignant neoplasm o f overlapping sites of bladder (HCC) (Primary Dx) Start: 03-29-2022 End: 03-30-2022 ambulatory Yoko Leyva Facility:[facility] Start: 03-29-2022 End: 03-29-2022 Patient encounter procedure Yoko Leyva Jr. [facility] Start: 03-29-2022 ambulatory Yoko Leyva Facility:[facility] Start: 03-03-2022 End: 03-03-2022 ambulatory Yoko Leyva Facility:[facility] Start: 03-03-2022 End: 03-03-2022 Admission to same day surgery center Yoko Leyva Jr. [facility] Start: 02-17-2022 End: 02-18-2022 ambulatory Yoko Leyva Facility:[facility] Start: 02-17-2022 End: 02-17-2022 Patient encounter procedure Yoko Leyva Jr. [facility] Start: 02-01-2022 End: 02-02-2022 ambulatory Yoko Leyva Facility:[facility] Start: 02-01-2022 End: 02-01-2022 Patient encounter procedure Yoko Leyva Jr. [facility] Start: 01-21-2022 End: 01-22-2022 ambulatory MASHA Magdalena JIL Facility:[facility] Start: 01-21-2022 End: 01-21-2022 Lab Drop off MASHA Nichols JIL [facility] Start: 01-21-2022 End: 01-21-2022 Patient encounter procedure Yoko Leyva Jr. [facility] Start: 01-18-2022 End: 01-19-2022 ambulatory Yoko Leyva Facility:[facility] Start: 01-18-2022 End: 01-18-2022 Patient encounter procedure Yoko Leyva Jr. [facility] Start: 01-12-2022 End: 01-13-[address] YOKO LEYVA JR Facility: Start: 01-11-2022 Encounter for preprocedural cardiovascular examination DR YOKO LEYVA JR [facility] Start: 01-11-2022 Encounter for preprocedural laboratory examination DR YOKO LEYVA JR [facility] Start: 01-08-[address] YOKO LEYVA JR Fa cility: Start: 01-05-2022 End: 01-06-[address] YOKO LEYVA JR Facility: Start: 01-05-2022 End: 01-06-2022 Encounter for preprocedural cardiovascular examination DR YOKO LEYVA JR Facility: Start: 12-27-2021 End: 12-28-2021 ambulatory Yoko Leyva Facility:[facility] Start: 12-27-2021 End: 12-27-2021 Patient encounter procedure Yoko Leyva Jr. [facility] Start: 12-15-2021 End: 12-16-[address] YOKO LEYVA JR Facility:[facility] Start: 12-07-2021 ambulatory Yoko Leyva Facility:[facility] Start: 12-07-2021 End: 12-08-2021 ambulatory Yoko Leyva [facility] Start: 12-07-2021 End: 12-07-2021 Patient encounter procedure Yoko Leyva Jr. [facility] [place] Start: 11-05-2021 ambulatory Yoko Leyva Facility:[facility] [place] Start: 05-25-2021 End: 05-25-[address] KOMAL SCHAFFER Facility:[facility] Start: 04-19-2021 End: 04-20-[address] KOMAL SCHAFFER Facility:[facility] Start: 02-09-2021 End: 02-10-2021 ambulatory LEELA BOCANEGRA Facility:[facility] Start: 01-11-2018 Ambulatory BALTAZAR Castle ity:[id number] Start: 01-08-2018 Ambulatory OLIVIA HALL Facility :[id number] Imaging result normal Willytoni Grijalvakwasi Leyva PATIENT FINANCIAL COUNSELOR-TIRE GROOVER Work Phone: -[facility]vin 250 DO Work Phone: Procedures Date Procedure Procedure Detail Performing Clinician Start: 04-01-2025 Urnls dip stick/tabl et rgnt non-auto w/o micrscp Leela Bocanegra [employer] SETTER Work Phone: Start: 02-26-2025 ALL CKMB Leela alarcon [employer]TER Work Phone: Start: 02-26-2025 [facility] CK Leela alarcon [employer] SETTER Work Phone: Start: 02-24-2025 MR LUMBAR SPINE WO CON Generic External Data Provider Start: 02-24-2025 XR LUMBAR SPINE 6V W BENDING Generic External Data Provider Start: 02-13-2025 CT angiography of head Komla Schaffer II Work Phone: Start: 02-13-2025 CT angiography of ne ck vessels Komal Schaffer II Work Phone: Start: 02-13-2025 CT of head without contrast Komal Schaffer II Work Phone: Start: 02-13-2025 Plain chest X-ray Uche Schaffer II Work Phone: Start: 12-12-2024 Radex foot complete minimum 3 views Real Butler Earle DPM Work Phone: Start: 10-22-2024 Radiologic exam knee complete 4/more views Generic External Data Provider Start: 09-17-2024 Hemoglobin glycosylated a1c Aide LINN Work Phone: Start: 09-11-2024 End: 09-11-2024 Viral nucleic acid assay Komal Schaffer II Work Phone: Start: 09-11-2024 Plain chest X-ray Uche Schaffer II Work Phone: Start: 07-30-2024 Duplex scan of lower limb veins Komal Schaffer II Work Phone: Start: 07-29-2024 CT of lumbar spine w ithout contrast Komal Schaffer II Work Phone: Start: 07-28-2024 Plain chest X-ray Uche Schaffer II Work Phone: Start: 07-28-2024 CT cervical spine wi thout contrast Komal Schaffer II Work Phone: Start: 07-28-2024 CT of facial bones w ithout contrast Komal Schaffer II Work Phone: Start: 07-28-2024 CT [...] - S [place] or Plasma Jimena Rice CMA Start: 09-20-2023 Ecg routine ecg w/le ast [...] Start: 05-15-2023 Plain chest X-ray II Amador aguilar Schaffer Work Phone: Start: 05-14-2023 Plain chest X-ray II Amador aguilar Schaffer Work Phone: Start: 05-13-2023 Plain chest X-ray II Amador aguilar Schaffer Work Phone: Start: 05-12-2023 Aerobic microbial culture II Komal Schaffer Work Phone: Start: 05-12-2023 Investigation of tra nsfusion reaction II Komal Servoy Work Phone: Start: 05-12-2023 Plain chest X-ray II Amador Schaffer Work Phone: Start: 05-11-2023 Plain chest X-ray II Amador aguilar Servoy Work Phone: Start: 05-10-2023 Diagnostic radiograp hy [...] of prostate Yoko Leyva Jr. Appendectomy Willy maravilla PATIENT FINANCIAL COUNSELOR-TIRE GROOVER Work Phone: Cardiac catheterization Alondra Leyva Jr. Cardiac catheterization Amandeep Leyva PATIENT FINANCIAL COUNSELOR-TIRE GROOVER Work Phone: Cataract surgery Willy Leyva PATIENT FINANCIAL COUNSELOR-TIRE GROOVER Work Phone: Entire neck (body structure) Yoko Leyva Jr. Comment on above: 2017 Excision of neoplasm Willy Leyva PATIENT FINANCIAL COUNSELOR-TIRE GROOVER Work Phone: Comment on above: bladder; Extraction of cataract Horace Leyva Jr. Procedure on neck Willy Leyva PATIENT FINANCIAL COUNSELOR-TIRE GROOVER Work Phone: Total colonoscopy Willy Leyva PATIENT FINANCIAL COUNSELOR-TIRE GROOVER Work Phone: Comment on above: PROCEDURE DATE 2007; Plan of Treatment Date Care Activity Detail Author Start: 09-25-2028 Lipid panel Lipid Panel [facility] Start: 11-08-2025 Creatinine measurement Creatinine Le chadwick [facility] Start: 11-08-2025 Potassium measurement Potassium Leve l [facility] Start: 09-25-2025 End: 09-25-2025 Patient encounter procedure 09/25/2025 2:10 PM EST Office Visit [facility] [address] [facility] [address] [place] [address] Baltazar Hoover DO [address] [facility] [address], [address] [place] [address] [facility] Start: 07-03-2025 End: 07-03-2025 Patient encounter procedure 07/03/2025 2:40 PM EST Procedure Visit [facility] [address] [place] [address] Real Og, DPM [address] [facility] 5 [place] [address] [facility] Start: 05-22-2025 End: 05-22-2025 Patient encounter procedure 05/22/2025 2:30 PM EDT Office Visit [facility] Avelar Medince [address] [place] [address] Leela Bocanegra, ANAMARIA [address] [place] [address] Arrived [facility] Comment on above: Arrived Start: 05-05-2025 End: 05-05-2025 Patient encounter procedure 05/05/2025 1:30 PM EDT Office Visit [facility] [address] [place] [phone] ChipTevinjoseDO [address] [place] [address] [facility] Start: 04-27-2025 DIABETES SCREEN DIABETES SCREEN [facility] Start: 04-24-2025 End: 04-24-2025 Patient encounter procedure [facility] Comment on above: 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 (Primary Dx); Venous insufficiency Start: 04-21-2025 Influenza vaccination [facility] Start: 04-10-2025 End: 04-10-2025 Patient encounter procedure 04/10/2025 3:10 PM EDT Procedure Visit [facility] [address] [facility] [address] [place] [phone] Real Og DPM [address] [facility] [address] [place] [address] [facility] Start: 04-01-2025 End: 04-01-2025 Patient encounter procedure 04/01/2025 11:30 AM EDT Office Visit [facility] [address] [facility] [address] [place] [address] Leela Bocanegra, LETTER[employer] SETTER [address] [facility] 110 [place] [address] Arrived [facility] Comment on above: Arrived Start: 02-18-2025 End: 02-18-2026 CK total and CKMB CK total and CKMB Lab Routine Muscle pain Expected: 02/18/2025 (Approximate), Expires: 02/18/2026 [facility] Work Phone: Comment on above: Expected: 02/18/2025 (Approximate), Expires: 02/18/2026 Start: 02-14-2025 Comprehensive metabo lic 2000 panel - Serum or Plasma [facility] Start: 02-14-2025 End: 02-14-2025 [facility] Start: 02-13-2025 Physical therapy procedure [facility] Start: 02-13-2025 Referral to neurologist [facility] Start: 02-13-2025 Referral to occupati onal therapist [facility] Start: 02-13-2025 [facility] Start: 02-13-2025 Hospital admission [facility] Start: 01-30-2025 End: 01-30-2025 Patient encounter procedure [facility] Comment on above: 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 (Primary Dx); Venous insufficiency Start: 01-06-2025 End: 01-06-2025 Patient encounter procedure 01/06/2025 12:30 PM EDT Office Visit [facility] [address] [place] [phone] Stanley Saunders DO [address] [place] [address] [facility] Start: 01-02-2025 End: 01-02-2025 Patient encounter procedure [facility] Comment on above: Laceration of lesser toe of left foot without foreign body present, nail damage status unspecified, initial encounter (Primary Dx); Closed nondisplaced fracture of distal phalanx of left great toe, initial encounter; Venous insufficiency Start: 12-16-2024 Hemoglobin A1c measurement Jen betes: Hemoglobin A1C [facility] Start: 12-16-2024 End: 12-16-2024 Patient encounter procedure 12/16/2024 1:45 PM EDT Office Visit [facility] [address] [facility] 110 [place] [address] Komal Schaffer MD 112 [facility] 110 [place] [address] [facility] Start: 12-12-2024 End: 12-12-2024 Patient encounter procedure [facility] Comment on above: Laceration of lesser toe of left foot without foreign body present, nail damage status unspecified, initial encounter (Primary Dx); Closed nondisplaced fracture of distal phalanx of left great toe, initial encounter Start: 12-09-2024 End: 12-09-2024 Patient encounter procedure 12/09/2024 2:00 PM EDT Office Visit [facility] [address] [place] [address] [address] [place] [address] Willy Leyva, PATIENT FINANCIAL COUNSELOR-TIRE GROOVER [address] [facility] [address] [place] [address] [facility] Start: 12-05-2024 End: 12-05-2024 Patient encounter procedure [...] hypertension Expected: 11/11/2024 (Approximate), Expires: 11/04/2025 [facility] Service Area Work Phone: Comment on above: Expected: 11/11/2024 (Approximate), Expires: 11/04/2025 Start: 11-11-2024 End: 11-11-2024 Professional / ancillary services management 11/11/2024 2:00 PM EDT Ancillary Procedure [address] [place] [address] [facility] Start: 11-04-2024 End: 11-04-2025 Holter monitor study Holter Or Event Gas Engineer Cardiac Services Routine Localized edema Paroxysmal atrial fibrillation (Multi) Expected: 11/04/2024 (Approximate), Expires: 11/04/2025 [facility] Work Phone: Comment on above: Expected: 11/04/2024 (Approximate), Expires: 11/04/2025 Start: 10-15-2024 End: 10-15-2024 Patient encounter procedure [facility] Comment on above: Arrived Start: 10-11-2024 End: 10-11-2025 Basic metabolic 2000 panel - Serum or Plasma Basic Metabolic Panel Lab Routine Paroxysmal atrial fibrillation (Multi) High risk medication use Expected: 10/11/2024 (Approximate), Expires: 10/11/2025 [facility] Service Area Work Phone: Comment on above: Expected: 10/11/2024 (Approximate), Expires: 10/11/2025 Start: 10-09-2024 End: 10-09-2025 Comprehensive metabolic 2000 panel - Serum or Plasma Comprehensive metabolic panel Lab Routine Benign essential hypertension (CMS/HCC) Bradycardia Expected: 10/09/2024 (Approximate), Expires: 10/09/2025 [facility] Work Phone: Comment on above: Expected: 10/09/2024 (Approximate), Expires: 10/09/2025 Start: 10-09-2024 End: 10-09-2024 Patient encounter procedure 10/09/2024 10:00 AM EST Office Visit [facility] [address] [facility] [address] [place] [phone] Leela Bocanegra NP [address] [place] [address] Arrived [facility] Comment on above: Arrived Start: 10-05-2024 Medicare Annual Well ness (AWV) Medicare Annual Wellness (AWV) [facility] Start: 09-25-2024 Urine screening for protein Diabetes: Urine Protein Screening [facility] Start: 09-24-2024 End: 09-24-2024 Patient encounter procedure 09/24/2024 2:20 PM EST Office Visit [facility] [address] [facility] [address] [place] [phone] Baltazar Hoover DO [address] [facility], [address] [place] [address] [facility] Start: 09-21-2024 [facility] Start: 09-20-2024 [facility] Start: 09-19-2024 [facility] Start: 09-18-2024 [facility] Start: 09-17-2024 [facility] Start: 09-16-2024 [facility] Start: 09-15-2024 [facility] Start: 09-14-2024 [facility] Start: 09-13-2024 End: 09-13-2024 [facility] Start: 09-12-2024 End: 09-12-2024 Patient encounter procedure 09/12/2024 2:50 PM EST Procedure Visit [facility] [address] [facility] [address] [place] [address] Real Og DPM [address] [address] [facility] Start: 09-12-2024 [facility] Start: 09-11-2024 [facility] Start: 09-11-2024 Hospital admission [facility] Start: 09-11-2024 Referral to neurologist [facility] Start: 09-11-2024 End: 09-11-2024 [facility] Start: 08-22-2024 End: 08-22-2024 Patient encounter procedure 08/22/2024 3:00 PM EST Procedure Visit [facility] [address] [facility] 120 [place] [address] Real Og DPM [address] [address] [facility] Start: 07-31-2024 [facility] Start: 07-30-2024 Referral to palliati ve care physician [facility] Start: 07-29-2024 Consultation [facility] Start: 07-28-2024 Hospital admission [facility] Start: 07-24-2024 End: 07-24-2025 Basic metabolic 1998 [...] [address] [place] [phone] Leela Bocanegra, LETTERPRESS SETTER [address] [place], [place] [phone] Arrived [facility] Comment on above: Arrived Start: 07-23-2024 End: 07-23-2024 Patient encounter procedure 07/23/2024 1:40 PM EST Office Visit [facility] [place] [address] [place] [phone] Rubia Henning NP [address] [place], [place] [phone] [facility] [place] [facility] Start: 07-22-2024 End: 07-22-2024 Patient encounter procedure 07/22/2024 1:00 PM EST Office Visit [facility] [place] [address] [place] [phone] Mookie Tamayo, ANAMARIA [address] [place] [phone] [facility] [place] [facility] Start: 07-12-2024 End: 07-12-2024 [facility] Start: 07-11-2024 [facility] Start: 07-10-2024 [facility] Start: 07-09-2024 [facility] Start: 07-09-2024 Hospital admission [facility] Start: 07-09-2024 Referral to neurologist [facility] Start: 07-09-2024 [facility] Start: 07-04-2024 [facility] Start: 06-29-2024 [facility] Start: 06-28-2024 [facility] Start: 06-27-2024 [facility] Start: 06-26-2024 [facility] Start: 06-25-2024 [facility] Start: 06-24-2024 [facility] Start: 06-23-2024 [facility] Start: 06-22-2024 Hospital admission [facility] Start: 06-22-2024 Referral to clinical supplier quality engineering manager [facility] Start: 06-22-2024 End: 06-22-2024 [facility] Start: 06-21-2024 [facility] Start: 06-20-2024 Referral to rehabili tation physician [facility] Start: 06-20-2024 Referral to rehabili tation physician [facility] Start: 06-20-2024 [facility] Start: 06-19-2024 Physical therapy procedure [facility] Start: 06-19-2024 Referral to occupati onal therapist [facility] Start: 06-19-2024 Referral to speech a nd language therapy service [facility] Start: 06-19-2024 [facility] Start: 06-19-2024 Consultation [facility] Start: 06-19-2024 Hospital admission [facility] Start: 06-19-2024 Referral to neurologist [facility] Start: 06-19-2024 [facility] Start: 06-13-2024 End: 06-13-2024 Patient encounter procedure [facility] Comment on above: 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 Start: 03-19-2024 End: 03-19-2024 Patient encounter procedure 03/19/2024 1:00 PM EDT Office Visit [address] [place] [address] Willy Leyva, PATIENT FINANCIAL COUNSELOR-TIRE GROOVER [address] [facility] [address] [address] [place] [address] [facility] Start: 02-12-2024 Bacteria identified in Blood by Culture [facility] Start: 12-24-2023 Hemoglobin A1c measurement Jen betes: Hemoglobin A1C [facility] Start: 11-16-2023 End: 11-16-2023 Patient encounter procedure 11/16/2023 3:40 PM EDT Procedure Visit [facility] [address] [facility] [address] [place] [address] Real Og, DPMarcial [address] [facility] [address] [place] [address] [facility] Start: 11-15-2023 End: 09-20-2024 Holter monitor study Holter Or Event Gas Engineer Cardiac Services Routine Paroxysmal atrial fibrillation (CMS/HCC) Expected: 11/15/2023, Expires: 09/20/2024 [facility] Service Area Work Phone: Comment on above: Expected: 11/15/2023 , Expires: 09/20/2024 Start: 11-15-2023 End: 11-15-2023 Professional / ancillary services management 11/15/2023 1:00 PM EDT Ancillary Procedure [address] [place] [address] [facility] Start: 10-09-2023 End: 10-09-2023 ambulatory [facility] Start: 10-05-2023 End: 10-05-2023 Patient encounter procedure 10/05/2023 1:15 PM EST Office Visit [facility] [address] [facility] 110 [place] [phone] Komal Schaffer MD 112 [facility] 110 [place] [address] [facility] Start: 10-04-2023 End: 10-04-2023 ambulatory [facility] Comment on above: Arrived Start: 09-28-2023 End: 09-28-2023 ambulatory 09/28/2023 1:30 PM EST Treatment [facility] [address] [facility] [address] [place] [address] Anderson Ray PTA [facility] Start: 09-25-2023 End: 09-25-2024 CBC W Auto Differential panel - Blood CBC and differential Lab Routine Paroxysmal atrial fibrillation ([facility]/HCC) Expected: 09/25/2023 (Approximate), Expires: 09/25/2024 [facility] Comment on above: Expected: 09/25/2023 (Approximate), Expires: 09/25/2024 Start: 09-25-2023 End: 09-25-2024 Comprehensive metabolic 2000 panel - Serum or Plasma Comprehensive metabolic panel Lab Routine Benign essential hypertension (CMS/HCC) Expected: 09/25/2023 (Approximate), Expires: 09/25/2024 [facility] Comment on above: Expected: 09/25/2023 (Approximate), Expires: 09/25/2024 Start: 09-25-2023 End: 09-25-2024 Hemoglobin A1c measurement Hemoglobin A1c Lab Routine Type 2 diabetes mellitus with diabetic neuropathy, without long-term current use of insulin (CMS/HCC) Expected: 09/25/2023 (Approximate), Expires: 09/25/2024 [facility] Work Phone: Comment on above: Expected: 09/25/2023 (Approximate), Expires: 09/25/2024 Start: 09-25-2023 End: 09-25-2024 Lipid 1996 panel - Serum or Plasma Lipid panel Lab Routine Type 2 diabetes mellitus with diabetic neuropathy, without long-term current use of insulin ([facility]/HCC) Benign essential hypertension (CMS/HCC) Expected: 09/25/2023 (Approximate), Expires: 09/25/2024 [facility] Comment on above: Expected: 09/25/2023 (Approximate), Expires: 09/25/2024 Start: 09-25-2023 End: 09-25-2024 TSH W/REFLEX TO FT4 TSH W/REFLEX TO FT4 Lab Routine Type 2 diabetes mellitus with diabetic neuropathy, without long-term current use of insulin ([facility]) Expected: 09/25/2023 (Approximate), Expires: 09/25/2024 [facility] Comment on above: Expected: 09/25/2023 (Approximate), Expires: 09/25/2024 Start: 09-25-2023 End: 09-25-2023 ambulatory 09/25/2023 12:30 PM EST Treatment [facility] [address] [place] [address] Anderson Ray, X RAY TECHNOLOGIST [facility] Start: 08-24-2023 FUV, Provider: Baltazar Hoover, Status: Pen, Time: 11:10 AM FUV, Provider: Baltazar Hoover, Status: Pen, Time: 11:10 AM [place] [address] DO Work Phone: Start: 07-01-2023 Hemoglobin A1c measurement Jen betes: Hemoglobin A1C [facility] Start: 06-10-2023 [facility] Start: 05-22-2023 [facility] Start: 05-21-2023 [facility] Start: 05-21-2023 Administration of prophylactic treatment [facility] Start: 05-21-2023 Hospital admission [facility] Start: 05-21-2023 Referral to clinical supplier quality engineering manager [facility] Start: 05-21-2023 [facility] Start: 05-18-2023 Administration of prophylactic treatment [facility] Start: 05-18-2023 [facility] Start: 05-16-2023 Referral to rehabili tation physician [facility] Start: 05-16-2023 [facility] Start: 05-11-2023 Consultation [facility] Start: 05-11-2023 Hospital admission [facility] Start: 05-11-2023 Referral to neurologist [facility] Start: 05-10-2023 Respiratory Ventilat ion, Greater than 96 Consecutive Hours Respiratory Ventilation, Greater than 96 Consecutive Hours [facility] Start: 04-21-2023 COVID-19 Vaccine ( season) COVID-19 Vaccine ( season) [facility] Start: 04-21-2022 Influenza vaccination INFLUENZA (#1) [facility] Start: 03-21-2022 Influenza vaccination Flu vaccine (# 1) [facility] Start: 09-25-2021 COVID-19 VACCINE (4 - Booster for Pfizer series) COVID-19 VACCINE (4 - Booster for Pfizer series) [facility] Start: 08-21-2021 ADVANCE DIRECTIVE DISCUSSION ADVANCE DIRECTIVE DISCUSSION [facility] Start: 08-17-2021 Urine screening for protein Diabetes: Urine Protein Screening [facility] Start: 07-19-2021 COVID-19 Vaccine (4 - Booster for Pfizer series) COVID-19 Vaccine (4 - Booster for Pfizer series) [facility] Start: 2018 RSV High Risk: (Elde rly (60+) or Population) (1 - 1-dose 75+ series) RSV High Risk: (Elderly (60+) or Population) (1 - 1-dose 75+ series) [facility] Start: 07-03-2012 Zoster Vaccines (2 of 3) Zoste r Vaccines (2 of 3) [facility] Start: 2008 PNEUMOCOCCAL: 65+ (1 - PCV) PNEUMOCOCCAL: 65+ (1 - PCV) [facility] Start: 1993 SHINGRIX VACCINE (1 of 2) COLEMAN GRIX VACCINE (1 of 2) [facility] Start: 1965 DTaP/Tdap/Td Vaccine s (1 - Tdap) DTaP/Tdap/Td Vaccines (1 - Tdap) [facility] Start: 1962 DTaP/Tdap/Td vaccine (1 - Tdap) DTaP/Tdap/Td vaccine (1 - Tdap) [facility] Start: 1962 Urine microalbumin profile DTAP,TDAP ,TD (1 - Tdap) [facility] Start: 1961 Diabetes mellitus screening Diabetes Screening [facility] Start: 1961 HEPATITIS C SCREENING HEPATITIS C [facility] Start: 1961 Hepatitis C screening Hepatitis C [facility] Start: 1955 Adult depression scr eening assessment DEPRESSION SCREENING [facility] Start: 1953 Glaucoma screening Diabetes: R etinopathy Screening [facility] Start: 1943 Lipid panel Lipid Panel [facility] Start: 1943 Medicare Annual Well ness (AWV) Medicare Annual Wellness (AWV) [facility] Start: 1943 Medicare Annual Well ness Visit Medicare Annual Wellness Visit (AWV) [facility] Start: 1943 Thyroid stimulating hormone measurement TSH Level [facility] End: 11-06-2022 Basic metabolic 2000 panel - Serum or Plasma Basic Metabolic Panel Lab Routine Daily for 3 Weeks starting 10/17/2022 until 11/06/2022, 2 completed [employer] Phone: Comment on above: Daily for [address] arting 10/17/2022 until 11/06/2022, 2 completed End: 11-06-2022 CBC panel - Blood by Automated count CBC Lab Routine Daily for 3 Weeks starting 10/17/2022 until 11/06/2022, 2 completed [employer] Phone: Comment on above: Daily for [address] arting 10/17/2022 until 11/06/2022, 2 completed Home BIPAP or CPAP Home BIPAP or CPAP Respiratory Care Routine Daily until discontinued starting 10/17/2022 [employer] Phone: Comment on above: Daily until disconti nued starting 10/17/2022 End: 10-15-2022 Intermittent pulse oximetry Pulse Oximetry Spot Check Respiratory Care Routine Continuous until discontinued starting 10/15/2022 [employer] Phone: Comment on above: Continuous until dis continued starting 10/15/2022 Oxygen therapy [[facility] Data Set] Initiate Oxygen Therapy Protocol Respiratory Care Routine As Needed until discontinued starting 10/15/2022 [employer] Phone: Comment on above: As Needed until disc ontinued starting 10/15/2022 Patient Education [facility] Work Phone: Patient referral [facility] Work Phone: [facility] Immunizations Immunization Date Immunization Notes Care Provider Bright montes 05-22-2025 influenza, high dose seasonal, preservative-free Leela Bocanegra LETTERPRESS SETTER Work Phone: [facility] 06-22-2024 influenza, high dose seasonal, preservative-free GEOVANY Komal Sarbjit Work Phone: [facility] 06-05-2024 influenza, seasonal, injectable Willy Leyva PATIENT FINANCIAL COUNSELOR-TIRE GROOVER Work Phone: [facility] Work Phone: 06-05-2024 influenza virus vaccine, unspecified formulation Leela Bocanegra LETTER[employer] SETTER Work Phone: [facility] 06-22-2023 Influenza, High-dose Seasonal, Quadrivalent, Preservative Free Anderson Ray X RAY TECHNOLOGIST [facility] 06-22-2023 influenza virus vaccine, unspecified formulation Stanley Saunders DO Work Phone: [facility] 07-21-[address] 12 Years And Older Anderson Ray X RAY TECHNOLOGIST [facility] 07-21-2022 Pfizer COVID-19 Vac Bivalent 30 MCG/0.3ML Intramuscular Suspension Willy Leyva PATIENT FINANCIAL COUNSELOR-TIRE GROOVER [facility] Work Phone: 07-13-2022 Fluzone High-Dose Quadrivalent 0.7 ML Intramuscular Suspension Prefilled Syringe Willy Leyva PATIENT FINANCIAL COUNSELOR-TIRE GROOVER [facility] Work Phone: 05-25-2021 Pfizer-BioNTech COVID-19 Vacc 30 MCG/0.3ML Intramuscular Suspension Willy Leyva PATIENT FINANCIAL COUNSELOR-TIRE GROOVER Work Phone: [place] [address] DO Work Phone: 05-20-2021 Fluad Quadrivalent 0 .5 ML Intramuscular Prefilled Syringe Willy Leyva PATIENT FINANCIAL COUNSELOR-TIRE GROOVER Work Phone: [place] [address] DO Work Phone: 05-20-2021 Seasonal, trivalent, recombinant, injectable influenza vaccine, preservative free Anderson Ray [facility] 02-18-2021 SARS-CoV-2 (COVID-19 ) mRNA BNT-162b2 liana Leyva Jr. [facility] 11-10-2020 Pfizer-BioNTech COVID-19 Vacc 30 MCG/0.3ML Intramuscular Suspension Willy Leyva PATIENT FINANCIAL COUNSELOR-TIRE GROOVER Work Phone: [place] [address] DO Work Phone: 10-19-2020 Pfizer-BioNTech COVID-19 Vacc 30 MCG/0.3ML Intramuscular Suspension Willy Leyva PATIENT FINANCIAL COUNSELOR-TIRE GROOVER Work Phone: [place] [address] DO Work Phone: 09-21-2020 SARS-CoV-2 (COVID-19 ) mRNA BNT-162b2 liana Leyva Jr. [facility] 08-21-2020 SARS-CoV-2 (COVID-19 ) mRNA BNT-162b2 liana Leyva Jr. [facility] 05-06-2020 influenza, high dose seasonal, preservative-free Willy Leyva PATIENT FINANCIAL COUNSELOR-TIRE GROOVER Work Phone: [place] [address] DO Work Phone: 05-06-2020 Influenza, High-dose Seasonal, Quadrivalent, Preservative Free Anderson Cory [facility] 04-21-2020 influenza virus vaccine, unspecified formulation Willy Leyva PATIENT FINANCIAL COUNSELOR-TIRE GROOVER Work Phone: [facility] 250 DO Work Phone: 04-21-2020 influenza, seasonal, injectable Baltazar Hoover DO Work Phone: [facility] Work Phone: 05-27-2019 influenza, high dose seasonal, preservative-free Baltazar Hoover DO Work Phone: [facility] Work Phone: 05-27-2019 Influenza, High-dose Seasonal, Quadrivalent, Preservative Free Andersonkathy Ray [facility] 05-21-2019 influenza virus vaccine, unspecified formulation Willy Leyva PATIENT FINANCIAL COUNSELOR-TIRE GROOVER Work Phone: [place] [address] DO Work Phone: 05-21-2019 influenza, seasonal, injectable Baltazar Hoover DO Work Phone: [facility] Work Phone: 05-23-2018 influenza, high dose seasonal, preservative-free Willy Leyva PATIENT FINANCIAL COUNSELOR-TIRE GROOVER Work Phone: [facility] 250 DO Work Phone: 05-23-2018 Influenza, High-dose Seasonal, Quadrivalent, Preservative Free Anderson Ray [facility] 11-30-2017 pneumococcal polysaccharide vaccine, 23 valent Willy Leyva PATIENT FINANCIAL COUNSELOR-TIRE GROOVER Work Phone: [facility] 06-27-2017 influenza, high dose seasonal, preservative-free Willy Leyva PATIENT FINANCIAL COUNSELOR-TIRE GROOVER Work Phone: [facility] 250 DO Work Phone: 05-21-2017 pneumococcal vaccine , unspecified formulation Willy Leyva PATIENT FINANCIAL COUNSELOR-TIRE GROOVER Work Phone: [place] [address] DO Work Phone: 05-17-2017 influenza, high dose seasonal, preservative-free Willy Leyva PATIENT FINANCIAL COUNSELOR-TIRE GROOVER Work Phone: [facility] 250 DO Work Phone: 05-17-2017 Influenza, High-dose Seasonal, Quadrivalent, Preservative Free Anderson Cory [facility] 08-06-2016 pneumococcal conjuga te vaccine, 13 valent Tevindevikashaila Saunders DO Work Phone: [facility] 05-21-2016 pneumococcal conjuga te vaccine, 13 valent Willy Hanley Leyva PATIENT FINANCIAL COUNSELOR-TIRE GROOVER Work Phone: [place] [address] DO Work Phone: 10-26-2015 pneumococcal conjuga te vaccine, 13 valent Willy Grijalvakwasi Leyva PATIENT FINANCIAL COUNSELOR-TIRE GROOVER Work Phone: [place] [address] DO Work Phone: 05-22-2015 seasonal influenza, intradermal, preservative free Andersonvaldemar Ray [facility] 05-30-2014 seasonal influenza, intradermal, preservative free Andersonvaldemar Ray [facility] 05-08-2012 zoster vaccine, live Anderson Gisele e [facility] 10-19-2004 pneumococcal polysaccharide vaccine, 23 valent Andersonkathy Ray [facility] Payers Date Payer Category Payer Self-pay [id number] 2022 Medicare supplementa l policy (as second payer) AARP [id number] 2022 Unknown 2016 Private Health Insurance [id number] .[id number]. 2.7.3.541108.315 2008 Medicare [id number]. 1.13.159. 2.7.3.237965.315 1959 Medicare [id number] 1959 Unknown [id number] 1943 Unknown [id number] 2.16.840.1.697484.3.579. 2.593 1943 Unknown [id number] 2.16.840.1.758503.3.579. 2.593 1943 Unknown [id number] 2.16.840.1.394201.3.579. 2.593 1943 Unknown [id number] 2.16.840.1.956182.3.579. 2.593 1943 Unknown [id number] 2.16.840.1.605378.3.579. 2.593 1943 Unknown [id number] 2.16.840.1.649651.3.579. 2.593 1943 Unknown [id number] 2.16.840.1.468344.3.579. 2.593 1943 Unknown [id number] 2.16.840.1.644057.3.579. 2.727 1943 Unknown [id number] 2.16.840.1.436878.3.579. 2.727 1943 Unknown [id number] 2.16.840.1.268779.3.579. 2.727 1943 Unknown [id number] 2.16.840.1.701240.3.579. 2.727 1943 Unknown [id number] 2.16.840.1.714496.3.579. 2.727 1943 Unknown [id number] 2.16.840.1.459493.3.579. 2.727 1943 Unknown [id number] 2.16.840.1.944886.3.579. 2.727 1943 Unknown [id number] 2.16.840.1.718235.3.579. 2.727 1943 Unknown [id number] 2.16.840.1.919506.3.579. 2.727 1943 Unknown [id number] 2.16.840.1.256253.3.579. 2.727 1943 Unknown [id number] 2.16840.1.594670.3.579. 2.727 1943 Unknown [id number] 2.16.840.1.642437.3.579. 2.727 1943 Unknown [id number] 2.16.840.1.579844.3.579. 2.727 1943 Unknown [id number] 2.16.840.1.199518.3.579. 2.175 1943 Unknown [id number] 2.16840.1.009893.3.579. 2.356 1943 Unknown [id number] 2.16.840.1.434089.3.579. 2.356 1943 Unknown [id number] 2.16.840.1.463219.3.579. 2.356 1943 Unknown [id number] 2.16.840.1.996431.3.579. 2.356 1943 Unknown [id number] 2.16840.1.512106.3.579. 2.356 1943 Unknown [id number] 2.16.840.1.320109.3.579. 2.1244 1943 Unknown [id number] 2.16.840.1.025182.3.579. 2.1244 1943 Unknown [id number] 2.16.840.1.005819.3.579. 2.1244 1943 Unknown [id number] 2.16.840.1.950506.3.579. 2.1244 1943 Unknown [id number] 2.16.840.1.207005.3.579. 2.1244 1943 Unknown [id number] 2.16.840.1.072220.3.579. 2. 1943 Unknown [id number] 2.16.840.1.988003.3.579. 2. 1943 Unknown [id number] 2.16840.1.443692.3.579. 2. 1943 Unknown [id number] 2.16.840.1.691051.3.579. 2. 1943 Unknown [id number] 2.16.840.1.838873.3.579. 2. 1943 Unknown [id number] 2.16.840.1.221082.3.579. 2. 1943 Unknown [id number] 2.16840.1.769687.3.579. 2.196 1943 Unknown [id number] 2.16.840.1.372547.3.579. 2. 1943 Unknown [id number] 2.16.840.1.701821.3.579. 2.196 1943 Unknown [id number] 2.16.840.1.102729.3.579. 2.1259 1943 Unknown [id number] 2.16.840.1.291085.3.579. 2.1259 4 Unknown [id number] 2.16.840.1.958986.3.579. 2.1258 1943 Unknown [id number] 2.16.840.1.414251.3.579. 2.1258 1943 Unknown [id number] 2.16.840.1.172768.3.579. 2.1258 1943 Unknown [id number] 2.16.840.1.712575.3.579. 2.1258 1943 Unknown [id number] 2.16.840.1.058115.3.579. 2.1258 1943 Unknown [id number] 2.16840.1.274978.3.579. 2.1258 1943 Unknown [id number] 2.840.1.991305.3.579. 2.1258 1943 Unknown [id number] 2.16840.1.394442.3.579. 2.1258 1943 Unknown [id number] 2.840.1.313351.3.579. 2.1258 1943 Unknown [id number] 2.840.1.306916.3.579. 2.1258 1943 Unknown [id number] 2.840.1.590346.3.579. 2.1258 1943 Unknown [id number] 2.16840.1.304814.3.579. 2.1258 1943 Unknown [id number] 2.16840.1.204861.3.579. 2.1258 1943 Unknown [id number] 2.16840.1.680196.3.579. 2.1258 1943 Unknown [id number] 2.16840.1.624075.3.579. 2.1258 1943 Unknown [id number] 2.16.840.1.454998.3.579. 2.1259 1943 Unknown [id number] 2.16.840.1.435075.3.579. 2.718 Medicare [id number] Unknown [id number] 2.16.840.1.141670.3.579. 2.531 Unknown [id number] 2.16.840.1.775345.3.579. 2.531 Unknown [id number] 2.16.840.1.012559.3.579. 2.531 Unknown [id number] 2.16.840.1.655000.3.579. 2.531 Unknown [id number] 2.16.840.1.143532.3.579. 2.531 Unknown [id number] 2.16.840.1.206522.3.579. 2.531 Social History Date Type Detail Facility Start: 12-07-2021 End: 12-23-2022 Tobacco smoking status Never smoked tobacco (finding) [facility] Start: 03-17-2023 End: 09-20-2023 Sex Assigned At Male [facility] Tobacco smoking status Never [facility] Start: 01-03-2019 End: 12-23-2022 Tobacco use and exposure Smokeless tobacco non-user [facility] Start: 05-06-2022 End: 05-22-2025 Alcohol intake Current drinker of alcohol (finding) [facility] Start: 05-08-2017 History SDOH Alcohol Comment rare [facility] Start: 1945 Sex Assigned At Not on file C [facility] Start: 04-26-2022 End: 01-15-2025 Exposure to SARS-CoV-2 (event) Not sure [facility] Work Phone: Start: 02-02-1946 Sex Assigned At Male F [facility] Start: 03-17-2023 End: 09-20-2023 Caffeine use Caffeine use -[facility] 250 DO Work Phone: Comment on above: 2 CANS DAILY OF CAFF IENE FREE OR DIET POP; Start: 09-20-2023 Alcohol intake Ex-drinker (finding) [facility] Work Phone: Start: 09-07-2023 End: 01-15-2025 Alcohol [...] Start: 07-04-2024 End: 09-13-2024 Sex Male (finding) [facility] Start: 02-14-2025 SDOH Follow up SDOH Follow up [facility] Work Phone: Goals Date Patient Goal Desired Activity /State Functional Status Date Assessment Result Facility 05-22-2025 Patient Health Questionnaire 2 item (PHQ-2) [Reported] [facility] 04-01-2025 Patient Health Questionnaire 2 item (PHQ-2) [Reported] [facility] 04-01-2025 PHQ-9 quick depressi on assessment panel [Reported.PHQ] [facility] 02-18-2025 Patient Health Questionnaire 2 item (PHQ-2) [Reported] [facility] 02-18-2025 PHQ-9 quick depressi on assessment panel [Reported.PHQ] [facility] 12-05-2024 Patient Health Questionnaire 2 item (PHQ-2) [Reported] [facility] 09-13-2024 Functional status Patient at Baseline [facility] Work Phone: 09-11-2024 Functional status 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 Baseline [facility] Work Phone: 07-31-2024 Functional status 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 Baseline [facility] Work Phone: 07-12-2024 Functional status Patient at Baseline [facility] Work Phone: 07-09-2024 Functional status Patient Not at Baseline [facility] Work Phone: 07-04-2024 Functional status Patient at Baseline [facility] Work Phone: 06-22-2024 Functional status 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 Baseline [facility] Work Phone: 06-19-2024 Functional status Patient Not at Baseline [facility] Work Phone: 06-10-2023 Functional status Patient at Baseline [facility] Work Phone: 05-21-2023 Functional status 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 Baseline [facility] Work Phone: 03-29-2022 Functional Status N/A [facility] 02-17-2022 Functional Status No [facility] 02-01-2022 Functional Status N/A [facility] Mental Status Date Assessment Result Facility 09-13-2024 Cognitive function Patient at Baseline [facility] Work Phone: 09-11-2024 Cognitive function Patient at Baseline [facility] Work Phone: 07-31-2024 Cognitive function Patient at Baseline [facility] Work Phone: 07-12-2024 Cognitive function Patient at Baseline [facility] Work Phone: 07-09-2024 Cognitive function Cognitive Sta tus Patient at Baseline [facility] Work Phone: 07-04-2024 Cognitive function Patient at Baseline [facility] Work Phone: 06-22-2024 Cognitive function Patient at Baseline [facility] Work Phone: 06-19-2024 Cognitive function Cognitive Sta tus Patient at Baseline [facility] Work Phone: 06-10-2023 Cognitive function Cognitive Sta tus Patient at Baseline [facility] Work Phone: 05-21-2023 Cognitive function Cognitive Sta tus Patient at Baseline [facility] Work Phone: Clinical Notes 12-07-2021 to 05-22-2025 LORENA COELLO - 05/22/2025 2:30 PM EDTNicjared Og DPM - 04/24/2025 2:50 PM EDTTelephone Encounter - TEMITOPE Serrano - 04/01/2025 2:32 PM Mayra Bocanegra NP - 04/01/2025 11:30 AM EDT Note Date & Type Note Facility 05-22-2025 History of Present illness Narrative Images from the original note were not included. Subjective Patient ID: Taurus Garcia is a 79 y.o. male who presents for a medication follow up. Taurus presents today for a medication follow up. [...] ONE DAILY MENS 50+ADVANCED PO) nystatin (Mycostatin) 793657 UNIT/GM powder omega-3 (Fish Oil) 1000 MG [...] rhinitis due to other allergen Autoimmune disorder ([facility]) Bilateral pulmonary embolism (HCC) 2019 Acute Hypoxic Resp. 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 Cervical radiculopathy at C8 05/2017 CTS (carpal tunnel syndrome) 05/2017 Bilateral Essential hypertension, benign Facial droop Head injury with fracture of skull ([facility]) 09/17/2024 History of being hospitalized 06/19/2024 [...] edema 2009 /pucker Muscle cramp Myasthenia gravis ([facility]) 12/27/2017 / dyspnea Myasthenic crisis ([facility]) 05/10/2023 Obesity Obstructive sleep apnea (adult) (pediatric) Pulmonary emboli (HCC) 11/17/2023 Pulmonary embolism (HCC) 11/2018 Pure hypercholesterolemia Shortness of breath Superficial [...] - Flu vaccine, high dose seasonal, PF ([id number]) (Fluzone High Dose) Tolerated vaccination without difficulty. No follow-ups on file. documented in this encounter [facility] 04-24-2025 History of Present illness Narrative Patient: Taurus Garcia : 1945 PCP: Komal [...] Diagnosis Date Acute respiratory failure with hypoxia ([facility]) 11/17/2023 Acute respiratory insufficiency 12/15/2018 d/t Pulmonary Emboli MATT (acute kidney injury) 09/17/2024 Allergic rhinitis due to other allergen Autoimmune disorder ([facility]) Bilateral pulmonary embolism ([facility]) 2019 Acute Hypoxic Resp. 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 Cervical radiculopathy at C8 05/2017 CTS (carpal tunnel syndrome) 05/2017 Bilateral Essential hypertension, benign Facial droop Head injury with fracture of skull ([facility]) 09/17/2024 History of being hospitalized 06/19/2024 [...] edema 2009 /pucker Muscle cramp Myasthenia gravis ([facility]) 12/27/2017 / dyspnea Myasthenic crisis ([facility]) 05/10/2023 Obesity Obstructive sleep apnea (adult) (pediatric) Pulmonary emboli ([facility]) 11/17/2023 Pulmonary embolism ([facility]) 11/2018 Pure hypercholesterolemia Shortness of breath Superficial [...] FOOD OR MILK 3 TIMES DAILY, Disp: 270 tablet, Rfl: 3 furosemide (Lasix) 20 MG tablet, Take 1-2 tablets (20-40 mg) by mouth Daily, Disp: 180 tablet, Rfl: 3 gabapentin (Neurontin) 300 MG capsule, TAKE 1 [...] PO), , Disp: , Rfl: nystatin (Mycostatin) [id number] UNIT/GM powder, , Disp: , Rfl: omega-3 [...] min Stress: No Stress Concern Present (03/17/2023) [employer] [place] [employer] - Occupational Stress Questionnaire Feeling of Stress : Only a little Social Connections: Moderately Isolated (03/17/2023) Social Connection and Isolation Panel [NHANES] Frequency of Communication with Friends and Family: More than three times a week Frequency of Social Gatherings with Friends and Family: Once a week Attends Druze Services: Never Active Member of Clubs or [...] Real Og DPM documented in this encounter [facility] 04-01-2025 Telephone encounter Note OARRS reviewed, Rx sent into patient's pharmacy. [facility] 04-01-2025 Miscellaneous Notes OARRS reviewed, Rx sent into patient's pharmacy. documented in this encounter [facility] 04-01-2025 History of Present illness Narrative [...] ONE DAILY MENS 50+ADVANCED PO) nystatin (Mycostatin) [id number] UNIT/GM powder omega-3 (Fish Oil) 1000 MG [...] Diagnosis Date Acute respiratory failure with hypoxia ([facility]) 11/17/2023 Acute respiratory insufficiency 12/15/2018 d/t Pulmonary Emboli MATT (acute kidney injury) 09/17/2024 Allergic rhinitis due to other allergen Autoimmune disorder ([facility]) Bilateral pulmonary embolism ([facility]) 2019 Acute Hypoxic Resp. 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 Cervical radiculopathy at C8 05/2017 CTS (carpal tunnel syndrome) 05/2017 Bilateral Essential hypertension, benign Facial droop Head injury with fracture of skull ([facility]) 09/17/2024 History of being hospitalized 06/19/2024 [...] edema 2009 /pucker Muscle cramp Myasthenia gravis ([facility]) 12/27/2017 / dyspnea Myasthenic crisis ([facility]) 05/10/2023 Obesity Obstructive sleep apnea (adult) (pediatric) Pulmonary emboli ([facility]) 11/17/2023 Pulmonary embolism ([facility] [facility] 11/2018 Pure hypercholesterolemia Shortness of breath Superficial [...] follow-ups on file. documented in this encounter [facility] 02-18-2025 Telephone encounter Note Kimberly Wright filled the Percocet for him most recently. He will need to reach out to her office for the refill. [facility] 02-18-2025 Miscellaneous Notes Kimberly Wright filled the Percocet for him most recently. He will need to reach out to her office for the refill. documented in this encounter [facility] 02-18-2025 History of Present illness Narrative Images from the original note were not included. Subjective Patient ID: Taurus Garcia is a 79 y.o. male who presents for No chief complaint on file.. Taurus presents today for having pain that is also making it difficult to walk. This all started a week ago Monday. He has EMS take him to [facility]. He even states that he can't take care of himself. He states she thinks he needs to go to the [facility] for help. Over the past 2 weeks, [...] ONE DAILY MENS 50+ADVANCED PO) nystatin (Mycostatin) 525810 UNIT/GM powder omega-3 (Fish Oil) 1000 MG [...] droop Head injury with fracture of skull ([facility]) 09/17/2024 History of being hospitalized 06/19/2024 [...] edema 2008 /pucker Muscle cramp Myasthenia gravis ([facility]) 12/27/2017 / dyspnea Myasthenic crisis ([facility]) 05/10/2023 Obesity Obstructive sleep apnea (adult) (pediatric) Pulmonary emboli ([facility]) 11/17/2023 Pulmonary embolism ([facility]) 11/2018 Pure hypercholesterolemia Shortness of breath Superficial thrombophlebitis 12/16/2018 Rt Thigh Syncope 09/17/2024 Tremor Troponin I above reference range 11/17/2023 Urothelial carcinoma ([facility]) 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 documented in this encounter [facility] 02-14-2025 Hospital Discharge instructions Ambulatory OrdersInitiate Home Health Time Frame: 02/14/25, Location: Determined By Patient Additional Instructions Home health to manage: -RN/PT/OT to eval and treat -Monitor VS per protocol -High fall risk precautions -Perform neuro assessments -Assist with medication management and education [facility] Work Phone: 02-13-2025 History and physi nabila note Note Date/Time February 13, 2025 6:09pm [facility] [address] [place] [address] Hospitalist H&P Signed Patient: Taurus Garcia MR#: [id number] : 1945 Acct:[id number] Age/Sex: 79 / M Adm Date: 5 Loc: Room: [address] [address] Type: ADM INOo Attending Dr: Jarret Garza [...] chronic back pain with narcotics presented to [facility] with shortness of breath concerning for myasthenia [...] negative unless noted below or in HPI [facility] Medical History Chronic back pain Chronic anticoagulation [...] mg PO DAILY 12/27/17 [History Confirmed 02/13/25] qzsdzdqy-sfl-zrskv acid 0.4 mg-lycopene 300 mcg-lutein 250 mcg [...] % (Auto) 16.7 % (.) 02/13/25 11:19 Walton % (Auto) 15.5 % (.) 02/13/25 11:19 Eos % (Auto) 1.0 % (.) 02/13/25 11:19 Baso % (Auto) 1.2 % (.) 02/13/25 11:19 Nucleat RBC Rel Count 0.0 /100 WBC (0-0.5) 02/13/25 11:19 Neut # (Auto) 4.8 x10E3/uL (1.8-7.7) 02/13/25 11:19 Lymph # (Auto) 1.2 x10E3/uL (1.00-4.8) 02/13/25 11:19 Walton # (Auto) 1.1 x10E3/uL (0.0-0.8) H 02/13/25 [...] pH 5.5 (5.0-9.0) 02/13/25 12:55 Ur Specific [place] 1.018 (1.001-1.030) 02/13/25 12:55 Urine Protein Negative [...] signed by Jarret Garza MD> 02/13/25 1809 [facility] Work Phone: 1(612) 206-255006-26-2025 Evaluation note* Diagnosis Onset Date Resolution Status Admit Date Chronic anticoagulation acute [facility] 2024 4:31pm Generalized weakness acute February 13, 2025 4:31pm Myasthenia gravis acute February 132024 [facility] Work Phone: 1(299) 431-767306-26-2025 Evaluation note* Diagnosis Onset Date Resolution Status Admit Date Chronic anticoagulation inactive J [facility] 2024 4:31pm Generalized weakness inactive February 13, 2025 4:31pm Myasthenia gravis inactive February 132024 4:31pm [facility] Work Phone: 1(523) 611-834906-26-2025 Evaluation note* Diagnosis Onset Date Resolution Status [...] Septembe r 2024 1:25pm Myasthenia gravis acute Sept er 2024 1:25pm [facility] Work Phone: 1(546) 470-458306-26-2025 [place] [address] Hospitalist H&P Signed Patient: Taurus Garcia MR#: [id number] : 1945 Acct:[id number] Age/Sex: 79 / M Adm Date: 5 Loc: Room: [address] [address] Type: ADM INOo Attending Dr: Jarret Garza [...] chronic back pain with narcotics presented to [facility] with shortness of breath concerning for myasthenia [...] negative unless noted below or in HPI [facility] Medical History Chronic back pain Chronic anticoagulation [...] mg PO DAILY 12/27/17 [History Confirmed 02/13/25] hwfsisas-dth-uhtwp acid 0.4 mg-lycopene 300 mcg-lutein 250 mcg [...] % (Auto) 16.7 % (.) 02/13/25 11:19 Walton % (Auto) 15.5 % (.) 02/13/25 11:19 Eos % (Auto) 1.0 % (.) 02/13/25 11:19 Baso % (Auto) 1.2 % (.) 02/13/25 11:19 Nucleat RBC Rel Count 0.0 /100 WBC (0-0.5) 02/13/25 11:19 Neut # (Auto) 4.8 x10E3/uL (1.8-7.7) 02/13/25 11:19 Lymph # (Auto) 1.2 x10E3/uL (1.00-4.8) 02/13/25 11:19 Walton # (Auto) 1.1 x10E3/uL (0.0-0.8) H 02/13/25 [...] pH 5.5 (5.0-9.0) 02/13/25 12:55 Ur Specific [place] 1.018 (1.001-1.030) 02/13/25 12:55 Urine Protein Negative [...] 02/13/25 16 37 Signed By: 02/13/25 1809 [facility]06-26-2025 Radiology Diagnostic study note [facility] Main [place] [address] [place] [address] CT Scan Report Signed Patient: Taurus Garcia MR#: [id number] : 1945 Acct:[id number] Age/Sex: 79 / M ADM Date: 5 Loc: ER Room: Type: [facility] ER Attending Dr: Copies to: Kathleen Parker APRN~ Ordering Provider: Kathleen Parker APRN Date of Service: 02/13/25 CT/CT angio neck: weakness ([id number]) CT/CT angio head: weakness CT angiogram head and neck performed with contrast INDICATION: Weakness COMPARISON: CT angiogram head and neck 07/09/2024 CT angiogram images obtained through the head and neck with Sagittal and coronalMIP as well as 3-D volume rendered reconstructions of the carotid arteries and [place] of [place] were reviewed. Stenosisis evaluated using [...] Bustos M.D. 02/13/2025 3:25 PM Dictation Location: [place] [address] Transcribed By: [facility] 02/13/25 152 Dictated By: Julian Bustos MD 02/13/25 1517 Signed By: 02/13/25 [facility]5 [facility] Work Phone: 1([phone]) 398-477206-26-2025 [facility] [place] [address] [place] [address] CT Scan Report Signed Patient: Taurus Garcia MR#: [id number] : 1945 Acct:[id number] Age/Sex: 79 / M ADM Date: 5 Loc: ER Room: Type: [facility] ER Attending Dr: Copies to: Kathleen Parker [...] Bustos M.D. 02/13/2025 3:14 PM Dictation Location: [place] [address] Transcribed By: [facility] 02/13/251513 Dictated By: Julian Bustos MD 02/13/251509 Signed By: 02/13/[address] [place] [address] Work Phone: 1(662) 430-537006-12-2025 History of Present illness Narrative* Real Og DPM - 01/30/2025 3:10 PM [...] d/t Pulmonary Emboli MATT (acute kidney injury) ([facility]) 09/17/2024 Allergic rhinitis due to other allergen Autoimmune disorder ([facility]) Bilateral pulmonary embolism ([facility]) 2019 Acute Hypoxic Resp. 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 Cervical radiculopathy at C8 05/2017 CTS (carpal tunnel syndrome) 05/2017 Bilateral Essential hypertension, benign ([facility]) Facial droop Head injury with fracture of skull ([facility]) 09/17/2024 History of being hospitalized 06/19/2024 Myasthenia Gravis Exacerbation, Weakness, Dyspnea History of being hospitalized 07/09/2024 Generalized Weakness, MATT History of being hospitalized 07/28/2024 Syncope, Head injury, Generalized weakness, Hypomagnesemia History of being hospitalized 09/11/2024 Myasthenia Gravis Crisis History of echocardiogram 12/15/2018 EF 60-65%, LVH Hypertension ([facility]) Impaired glucose tolerance test Oral Lumbosacral spondylosis without myelopathy LVH (left ventricular hypertrophy) 12/15/2018 ECHO EF 60-65% Macular edema 2008 /pucker Muscle cramp Myasthenia gravis 12/27/2017 / dyspnea Myasthenic crisis ([facility]) 05/10/2023 Obesity Obstructive sleep apnea (adult) (pediatric) Pulmonary emboli 11/17/2023 Pulmonary embolism 11/2018 Pure hypercholesterolemia ([facility]) Shortness of breath Superficial thrombophlebitis 12/16/2018 Rt Thigh Syncope 09/17/2024 Tremor Troponin I above reference range 11/17/2023 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 Real Og DPM documented in this encounterJohn J. [facility] [id number] History of Present illness Narrative* Willy Leyva, PATIENT FINANCIAL COUNSELOR-TIRE GROOVER - 01/15/2025 10:00 AM EDT Chief Complaint [...] unit/gram powder 1 Application, As needed omega 7-aty-qea-fish oil 360 mg-108 mg- 180 mg-1,200 mg [...] Dr. Hoover as scheduled Willy Leyva MSN, PATIENT FINANCIAL COUNSELOR-TIRE GROOVER, PMHNP-[facility] [place], [place] Please excuse any errors in grammar or translation related to this dictation. Voice recognition software was utilized to prepare this document. [facility] Work Phone: 1(712) 496-980105-28-2025 Instructions* Patient Instructions* SHANT Mock - 01/15/2025 [...] Dr. Hoover as scheduled documented in [facility]Tr[facility] Work Phone: 1(124) 630-874405-19-2025 History of Present illness Narrative* Stanley Saunders [...] Diagnosis Date Acute respiratory failure with hypoxia ([facility]) 11/17/2023 Acute respiratory insufficiency 12/15/2018 d/t Pulmonary Emboli MATT (acute kidney injury) ([facility]) 09/17/2024 Allergic rhinitis due to other allergen Autoimmune disorder ([facility]) Bilateral pulmonary embolism ([facility]) 2019 Acute Hypoxic Resp. 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 High [...] of echocardiogram 12/15/2018 EF 60-65%, LVH Hypertension ([facility]) Impaired glucose tolerance test Oral Lumbosacral spondylosis without myelopathy LVH (left ventricular hypertrophy) 12/15/2018 ECHO EF 60-65% Macular edema 2008 /pucker Muscle cramp Myasthenia gravis 12/27/2017 / dyspnea Myasthenic crisis ([facility]) 05/10/2023 Obesity Obstructive sleep apnea (adult) (pediatric) Pulmonary emboli 11/17/2023 Pulmonary embolism 11/2018 Pure hypercholesterolemia ([facility]) Shortness of breath Superficial thrombophlebitis 12/16/2018 Rt Thigh Syncope 09/17/2024 Tremor Troponin I above reference range 11/17/2023 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 LUE strength deltoid , biceps , triceps , wrist extensors , wrist flexor , and sanitation inspector strength 5/5. RLE strength iliopsoas, quadriceps, tibialis [...] reflex 0. LLE knee reflex 0. Coordination: Cyqqvw-ut-gcxx testing normal. Rapid alternating movements are normal. Gait: Utilizing walker. Review and summary of old records: I reviewed documentation from the patient's inpatient hospitalization at [facility] from 09/11/2024 to 09/13/2024. The patient presented to [facility] at that time due to mild increase [...] from the patient's emergency department visit at [facility] on 02/12/2024. The patient presented with mild [...] [facility]: Unremarkable EMG of the bilateral upper extremities on 06/19/17: Bilateral median neuropathy such as in carpal tunnel syndrome which is mild in degree electrically. Also a remote right C8 radiculopathy. Assessment/Plan Diagnoses and all orders for this visit: Myasthenia gravis ([facility]) Mr. Pascual is an 79-year-old male [...] mg PO QID. He reports evaluation at [facility] in late August 2024 due to mild [...] or syncope - I offered referral to [facility] for a second opinion regarding his [...] index (BMI) of45.0 to 49.9 in adult ([facility]) The patient is obese. PLAN: - [...] [facility] documented in this encounterJohn J. [facility]hing [facility] [id number] History of Present illness Narrative* Real Og [...] Diagnosis Date Acute respiratory failure with hypoxia ([facility]) 11/17/2023 Acute respiratory insufficiency 12/15/2018 d/t Pulmonary Emboli MATT (acute kidney injury) (CMS/HCC) 09/17/2024 Allergic rhinitis due to other allergen Autoimmune disorder ([facility]) Bilateral pulmonary embolism ([facility]) 2019 Acute Hypoxic Resp. 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 Cervical radiculopathy at C8 05/2017 CTS (carpal tunnel syndrome) 05/2017 Bilateral Essential hypertension, benign (CMS/HCC) Facial droop Head injury with fracture of skull ([facility]) 09/17/2024 History of being hospitalized 06/19/2024 Myasthenia Gravis Exacerbation, Weakness, Dyspnea History of being hospitalized 07/09/2024 Generalized Weakness, MATT History of being hospitalized 07/28/2024 Syncope, Head injury, Generalized weakness, Hypomagnesemia History of being hospitalized 09/11/2024 Myasthenia Gravis Crisis History of echocardiogram 12/15/2018 EF 60-65%, LVH Hypertension ([facility]) Impaired glucose tolerance test Oral Lumbosacral spondylosis without myelopathy LVH (left ventricular hypertrophy) 12/15/2018 ECHO EF 60-65% Macular edema 2008 /pucker Muscle cramp Myasthenia gravis 12/27/2017 / dyspnea Myasthenic crisis ([facility]) 05/10/2023 Obesity Obstructive sleep apnea (adult) (pediatric) Pulmonary emboli 11/17/2023 Pulmonary embolism 11/2018 Pure hypercholesterolemia ([facility]) Shortness of breath Superficial thrombophlebitis 12/16/2018 Rt Thigh Syncope 09/17/2024 Tremor Troponin I above reference range 11/17/2023 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 Pershing [facility] Medical [id number] History of Present illness Narrative* Real Og DPM - 12/12/2024 1:30 PM EDT Patient: Taurus Garcia : 1945 PCP: Komal Schaffer MD SUBJECTIVE This is a 79 y.o. male that presents today for a follow up of left great toe fracture with laceration with cellulitis and has been taking oral antibiotics and using walking boot with positive improvement. Patient rates pain a 10/28. Allergies: No Known Allergies Past Medical History: Past Medical History: Diagnosis Date Acute respiratory failure with hypoxia ([facility]) 11/17/2023 Acute respiratory insufficiency 12/15/2018 d/t Pulmonary Emboli MATT (acute kidney injury) ([facility]) 09/17/2024 Allergic rhinitis due to other allergen Autoimmune disorder ([facility]) Bilateral pulmonary embolism ([facility]) 2019 Acute Hypoxic Resp. 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 Cervical radiculopathy at C8 05/2017 CTS (carpal tunnel syndrome) 05/2017 Bilateral Essential hypertension, benign ([facility]) Facial droop Head injury with fracture of skull ([facility]) 09/17/2024 History of being hospitalized 06/19/2024 Myasthenia Gravis Exacerbation, Weakness, Dyspnea History of being hospitalized 07/09/2024 Generalized Weakness, MATT History of being hospitalized 07/28/2024 Syncope, Head injury, Generalized weakness, Hypomagnesemia History of being hospitalized 09/11/2024 Myasthenia Gravis Crisis History of echocardiogram 12/15/2018 EF 60-65%, LVH Hypertension ([facility]) Impaired glucose tolerance test Oral Lumbosacral spondylosis without myelopathy LVH (left ventricular hypertrophy) 12/15/2018 ECHO EF 60-65% Macular edema 2008 /pucker Muscle cramp Myasthenia gravis 12/27/2017 / dyspnea Myasthenic crisis (CMS/HCC) 05/10/2023 Obesity Obstructive sleep apnea (adult) (pediatric) Pulmonary emboli 11/17/2023 Pulmonary embolism 11/2018 Pure hypercholesterolemia ([facility]) Shortness of breath Superficial thrombophlebitis 12/16/2018 Rt Thigh Syncope 09/17/2024 Tremor Troponin I above reference range 11/17/2023 Urothelial carcinoma ([facility]) 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 Pershing VA Medical [id number] History of Present illness Narrative* Real Og [...] Diagnosis Date Acute respiratory failure with hypoxia ([facility]) 11/17/2023 Acute respiratory insufficiency 12/15/2018 d/t Pulmonary Emboli MATT (acute kidney injury) ([facility]) 09/17/2024 Allergic rhinitis due to other allergen Autoimmune disorder ([facility]) Bilateral pulmonary embolism ([facility]) 2019 Acute Hypoxic Resp. 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 Cervical radiculopathy at C8 05/2017 CTS (carpal tunnel syndrome) 05/2017 Bilateral Essential hypertension, benign ([facility]) Facial droop Head injury with fracture of skull ([facility]) 09/17/2024 History of being hospitalized 06/19/2024 Myasthenia Gravis Exacerbation, Weakness, Dyspnea History of being hospitalized 07/09/2024 Generalized Weakness, MATT History of being hospitalized 07/28/2024 Syncope, Head injury, Generalized weakness, Hypomagnesemia History of being hospitalized 09/11/2024 Myasthenia Gravis Crisis History of echocardiogram 12/15/2018 EF 60-65%, LVH Hypertension ([facility]) Impaired glucose tolerance test Oral Lumbosacral spondylosis without myelopathy LVH (left ventricular hypertrophy) 12/15/2018 ECHO EF 60-65% Macular edema 2008 /pucker Muscle cramp Myasthenia gravis 12/27/2017 / dyspnea Myasthenic crisis ([facility]) 05/10/2023 Obesity Obstructive sleep apnea (adult) (pediatric) Pulmonary emboli 11/17/2023 Pulmonary embolism 11/2018 Pure hypercholesterolemia ([facility]) Shortness of breath Superficial thrombophlebitis 12/16/2018 Rt Thigh Syncope 09/17/2024 Tremor Troponin I above reference range 11/17/2023 Urothelial carcinoma (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 Pershing VA Medical [id number] History of Present illness Narrative* Leela Bocanegra, LETTERPRESS SETTER - 12/05/2024 2:00 PM EDT Images from [...] every day with food Oral nystatin (Mycostatin) 245028 UNIT/GM powder APPLY TO THE AFFECTED AREA(S) [...] Diagnosis Date Acute respiratory failure with hypoxia ([facility]) 11/17/2023 Acute respiratory insufficiency 12/15/2018 d/t Pulmonary Emboli MATT (acute kidney injury) ([facility]) 09/17/2024 Allergic rhinitis due to other allergen Autoimmune disorder ([facility]) Bilateral pulmonary embolism ([facility]) 2019 Acute Hypoxic Resp. 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 Cervical radiculopathy at C8 05/2017 CTS (carpal tunnel syndrome) 05/2017 Bilateral Essential hypertension, benign ([facility]) Facial droop Head injury with fracture of skull ([facility]) 09/17/2024 History of being hospitalized 06/19/2024 Myasthenia Gravis Exacerbation, Weakness, Dyspnea History of being hospitalized 07/09/2024 Generalized Weakness, MATT History of being hospitalized 07/28/2024 Syncope, Head injury, Generalized weakness, Hypomagnesemia History of being hospitalized 09/11/2024 Myasthenia Gravis Crisis History of echocardiogram 12/15/2018 EF 60-65%, LVH Hypertension ([facility]) Impaired glucose tolerance test Oral Lumbosacral spondylosis without myelopathy LVH (left ventricular hypertrophy) 12/15/2018 ECHO EF 60-65% Macular edema 2008 /pucker Muscle cramp Myasthenia gravis 12/27/2017 / dyspnea Myasthenic crisis (CMS/HCC) 05/10/2023 Obesity Obstructive sleep apnea (adult) (pediatric) Pulmonary emboli 11/17/2023 Pulmonary embolism 11/2018 Pure hypercholesterolemia ([facility]) Shortness of breath Superficial thrombophlebitis 12/16/2018 Rt Thigh Syncope 09/17/2024 Tremor Troponin I above reference range 11/17/2023 Urothelial carcinoma ([facility]/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 documented in this encounterJohn J. Pershing VA Medical [id number] History of Present illness Narrative* Real Og [...] Diagnosis Date Acute respiratory failure with hypoxia ([facility]) 11/17/2023 Acute respiratory insufficiency 12/15/2018 d/t Pulmonary Emboli MATT (acute kidney injury) ([facility]) 09/17/2024 Allergic rhinitis due to other allergen Autoimmune disorder ([facility]) Bilateral pulmonary embolism ([facility]) 2019 Acute Hypoxic Resp. 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 Cervical radiculopathy at C8 05/2017 CTS (carpal tunnel syndrome) 05/2017 Bilateral Essential hypertension, benign ([facility]) Facial droop Head injury with fracture of skull ([facility]) 09/17/2024 History of being hospitalized 06/19/2024 Myasthenia Gravis Exacerbation, Weakness, Dyspnea History of being hospitalized 07/09/2024 Generalized Weakness, MATT History of being hospitalized 07/28/2024 Syncope, Head injury, Generalized weakness, Hypomagnesemia History of being hospitalized 09/11/2024 Myasthenia Gravis Crisis History of echocardiogram 12/15/2018 EF 60-65%, LVH Hypertension ([facility]) Impaired glucose tolerance test Oral Lumbosacral spondylosis without myelopathy LVH (left ventricular hypertrophy) 12/15/2018 ECHO EF 60-65% Macular edema 2009 /pucker Muscle cramp Myasthenia gravis ([facility]) 12/27/2017 / dyspnea Myasthenic crisis ([facility]) 05/10/2023 Obesity Obstructive sleep apnea (adult) (pediatric) Pulmonary emboli ([facility]) 11/17/2023 Pulmonary embolism ([facility]) 11/2018 Pure hypercholesterolemia ([facility]) Shortness of breath Superficial thrombophlebitis 12/16/2018 Rt Thigh Syncope 09/17/2024 Tremor Troponin I above reference range 11/17/2023 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 Real Og DPM documented in this encounterJohn J. Pershing VA Medical [id number] Evaluation + Plan note* Assessment & Plan Note - Willy Leyva APRN-TIRE GROOVER - 11/04/2024 4:29 PM EDT Associated Problem(s): Localized edema Presents to the office today with a 3-week history of progressive increasing bilateral lower extremity edema. He has gained approximately 8 pounds over the last 2 weeks. PCP increase Lasix 40 mg daily x 5 days (last dose yesterday) minimal benefit. [facility] Work Phone: [phone] Miscellaneous Notes* Assessment & Plan Note - [...] sinus rhythm with PVC. documented in this encounterTr[facility]ull [facility] Work Phone: [phone] 339-363303-17-2025 Evaluation + Plan note* Assessment & Plan Note - SHANT Mock - 11/04/2024 4:28 PM EDTAssociated Problem(s): BMI 45.0-49.9, adult (Multi) Reviewed the merits of healthy lifestyle choices on overall cardiovascular health. [facility] Work Phone: [phone] Evaluation + Plan note* Assessment & Plan Note - SHANT Mock - 11/04/2024 4:28 PM EDTAssociated Problem(s): Essential hypertension Presents with reported elevated blood pressure with recent fluid retention. [facility] Work Phone: [phone] 342-587903-17-2025 Evaluation + Plan note* Assessment & Plan Note - SHANT Mock - 11/04/2024 4:28 PM EDTAssociated Problem(s): Paroxysmal atrial fibrillation (Multi) EKG last week was sinus rhythm with PVC. T [facility] Work Phone: [phone] History of Present illness Narrative* SHNAT Mock - 11/04/2024 12:00 PM EDT Chief [...] (MULTI VITAMIN ORAL) 1 tablet, Daily omega 5-yos-nxa-fish oil 360 mg-108 mg- 180 mg-1,200 mg [...] contact the office if new symptoms arise. [employer] SETTER one month Willy Leyva MSN, PATIENT FINANCIAL COUNSELOR-TIRE GROOVER, PMHNP-[facility] [place], [place] Please excuse any errors in grammar or translation related to this dictation. Voice recognition software was utilized to prepare this document. documented in this encounterTrumbull [facility] Work Phone: [phone] 325-856603-17-2025 Instructions* Patient Instructions* SHANT Mock - 11/04/2024 [...] contact the office if new symptoms arise. LETTER[employer] SETTER one month documented in this encounterTrumbull [facility] Work Phone: [phone] 386-711102-21-2025 History of Present illness Narrative* Jimena Rice CMA - 10/11/2024 3:00 PM EST Patient here for EKG visit ordered by Willy Leyva LETTER[employer] SETTER due to bradycardia. Willy Leyva LETTERPRESS SETTER in suite to review EKG prior [...] to the lasix increase. To Willy Leyva NP to read To Dr. Hoover for review upon return Vitals: 10/11/24 1502 BP: 148/80 BP Location: Right arm Patient Position: Sitting Pulse: 63 Weight: 141 kg (310 lb) Height: 1.727 m (5' 8 ) EKG done in office today documented in this [facility] Work Phone: [phone] History of Present illness Narrative* Leela Bocanegra [...] on 09/17/2024) 100 tablet 3 nystatin (Mycostatin) 405544 UNIT/GM powder APPLY TO THE AFFECTED AREA(S) [...] Diagnosis Date Acute respiratory failure with hypoxia ([facility]) 11/17/2023 Acute respiratory insufficiency 12/15/2018 d/t Pulmonary Emboli MATT (acute kidney injury) ([facility]) 09/17/2024 Allergic rhinitis due to other allergen Autoimmune disorder ([facility]) Bilateral pulmonary embolism ([facility]) 2019 Acute Hypoxic Resp. 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 Cervical radiculopathy at C8 05/2017 CTS (carpal tunnel syndrome) 05/2017 Bilateral Essential hypertension, benign ([facility]) Facial droop Head injury with fracture of skull ([facility]) 09/17/2024 History of being hospitalized 06/19/2024 Myasthenia Gravis Exacerbation, Weakness, Dyspnea History of being hospitalized 07/09/2024 Generalized Weakness, MATT History of being hospitalized 07/28/2024 Syncope, Head injury, Generalized weakness, Hypomagnesemia History of being hospitalized 09/11/2024 Myasthenia Gravis Crisis History of echocardiogram 12/15/2018 EF 60-65%, LVH Hypertension ([facility]) Impaired glucose tolerance test Oral Lumbosacral spondylosis without myelopathy LVH (left ventricular hypertrophy) 12/15/2018 ECHO EF 60-65% Macular edema 2009 /pucker Muscle cramp Myasthenia gravis (CMS/HCC) 12/27/2017 / dyspnea Myasthenic crisis (CMS/HCC) 05/10/2023 Obesity Obstructive sleep apnea (adult) (pediatric) Pulmonary emboli (CMS/HCC) 11/17/2023 Pulmonary embolism (CMS/HCC) 11/2018 Pure hypercholesterolemia ([facility]) Shortness of breath Superficial thrombophlebitis 12/16/2018 Rt Thigh Syncope 09/17/2024 Tremor Troponin I above reference range 11/17/2023 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 documented in this encounterJohn J. Pershing VA Medical [id number] Telephone encounter Note* Telephone Encounter - TEMITOPE Serrano - 09/18/2024 10:37 AM EST Acknowledged. [facility] [id number] Miscellaneous Notes* Telephone Encounter - TEMITOPE Serrano - 09/18/2024 10:37 AM EST Acknowledged. documented in this [facility]01-28-2025 History of Present illness Narrative* TEMITOPE Serrano - 09/17/2024 2:30 PM EST Images from the original note were not included. Subjective Patient ID: Taurus Garcia is a 78 y.o. male who presents for [facility] follow up. Flowsheet Row Patient Outreach from 09/10/[address] [facility] with Dee Haddad LPN Hospital Information ED, Hospital or Correction Facility Discharge? Correction Facility Patient has been contacted within two business days of discharge No [due to not know he was discharged in a timely manner] Have two attempts been made to contact the patient within two business days of being discharged? No Discharge Date 09/05/24 [facility] Date 07/31/24 Medications Discharge medications reviewed [...] yes What is the home health agency? [facility] Has home health visited [...] are swelling. When he was in [facility] he had a lift chair and was [...] on 09/17/2024) 100 tablet 3 nystatin (Mycostatin) 930915 UNIT/GM powder APPLY TO THE AFFECTED AREA(S) [...] the morning. 100 tablet 3 [DISCONTINUED] HYDROcodone-acetaminophen (Gary) 5-325 MG tablet Take 1 tablet by [...] Diagnosis Date Acute respiratory failure with hypoxia ([facility]) 11/17/2023 Acute respiratory insufficiency 12/15/2018 d/t Pulmonary Emboli MATT (acute kidney injury) ([facility]) 09/17/2024 Allergic rhinitis due to other allergen Autoimmune disorder ([facility]) Bilateral pulmonary embolism ([facility]) 2019 Acute Hypoxic Resp. 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 Cervical radiculopathy at C8 05/2017 CTS (carpal tunnel syndrome) 05/2017 Bilateral Essential hypertension, benign ([facility]) Facial droop Head injury with fracture of skull ([facility]) 09/17/2024 History of being hospitalized 06/19/2024 Myasthenia Gravis Exacerbation, Weakness, Dyspnea History of being hospitalized 07/09/2024 Generalized Weakness, MATT History of being hospitalized 07/28/2024 Syncope, Head injury, Generalized weakness, Hypomagnesemia History of being hospitalized 09/11/2024 Myasthenia Gravis Crisis History of echocardiogram 12/15/2018 EF 60-65%, LVH Hypertension ([facility]) Impaired glucose tolerance test Oral Lumbosacral spondylosis without myelopathy LVH (left ventricular hypertrophy) 12/15/2018 ECHO EF 60-65% Macular edema 2008 /pucker Muscle cramp Myasthenia gravis ([facility]) 12/27/2017 / dyspnea Myasthenic crisis ([facility]) 05/10/2023 Obesity Obstructive sleep apnea (adult) (pediatric) Pulmonary emboli ([facility]) 11/17/2023 Pulmonary embolism ([facility]) 11/2018 Pure hypercholesterolemia ([facility]) Shortness of breath Superficial thrombophlebitis 12/16/2018 Rt [...] long-term current use of insulin (CMS/HCC) - POCT Glycated hemoglobin, total Advised pt [...] bladder (CMS/HCC) The patient is seeing a medical sales for this condition, treatment is deferred to [...] Hypertension, Medication Follow Up. documented in this [facility]01-27-2025 History of Present illness Narrative* Salma Kelley LPN - 09/18/2024 8:47 AM EST Phoned pt [...] lot.I do explain that we have a BLAST FURNACE OPERATOR who helps with used ones from [...] pursuing a used one.* documented in this [facility]01-23-2025 Progress note Author Denzel Zamora [facility] Note Date/Time September 12, 2024 7 :24pm [facility] [address] [place] [address] Hospitalist Progress Note Signed Patient: Taurus Garcia MR#: [id number] : 1945 Acct:[id number] Age/Sex: 78 / M Adm Date: 5 Loc: 4P Room: 0O9650-6 Type: ADM INOo Attending Dr: Denzel Zamora [...] Name Freq PRN Reason Stop Dose Admin Apixaban 5 [...] 08:59 15 mg DAILY DORI Administration Pyridostigmine [place] 60 mg 09/11/24 14:00 09/12/24 08:53 Pyridostigmine [place] 60 Mg Tablet PO 09/11/25 13:59 60 [...] and planned nerve block, recent admission to skilled nursing after admission in 07/2024for weakness, presented to [facility] with shortness of breath concerning for myasthenia [...] By: <Electronically signed by Denzel Zamora MD> 09/12/241923 [facility] Work Phone: [phone]) 911-788901-23-2025 Progress note Author Jamel Packer [facility] Note Date/Time September 12, 2024 3 :52pm [facility] [address] [place] [address] Neurology Progress Note Signed Patient: Taurus Garcia MR#: [id number] : 1945 Acct:[id number] Age/Sex: 78 / M Adm Date: 5 Loc: Room: [address] [place] [address] Type: ADM INOo Attending Dr: Denzel Zamora [...] <Electronically signed by Jamel Packer DO> 09/12/24 1010 [facility] Work Phone: 1(224) 713-847301-22-2025 History and physical note Author Denzel Zamora [facility] Note Date/Time September 11, 2024 4 :18pm [facility] [address] [place] [address] Hospitalist H&P Signed Patient: Taurus Garcia MR#: [id number] : 1945 Acct:[id number] Age/Sex: 78 / M Adm Date: 5 Loc: Room: [address] [place] [address] Type: ADM IN Attending Dr: Denzel Zamora [...] and planned nerve block, recent admission to skilled nursing after admission in 07/2024for weakness, presented to [facility] with shortness of breath concerning for myasthenia [...] arthralgias Neurologic: no loss of motor function [facility] Medical History Chronic back pain Chronic anticoagulation [...] mg PO DAILY 12/27/17 [History Confirmed 09/11/24] utroyojv-dwh-nmqbv acid 0.4 mg-lycopene 300 mcg-lutein 250 mcg [...] 300 mg capsule 300 mg PO BID 10/30/24 [History Confirmed 09/11/24] furosemide 20 mg tablet [...] and planned nerve block, recent admission to skilled nursing after admission in 07/2024for weakness, presented to [facility] with shortness of breath concerning for myasthenia [...] signed by Denzel Zamora MD> 09/11/24 1618 [facility] Work Phone: 1([phone]) 820-691401-22-2025 Consult note Author Jamel Packer [facility] Note Date/Time September 11, 2024 4 :09pm [facility] [address] [place] [address] Neurology Consult Note Signed Patient: Taurus Garcia MR#: [id number] : 1945 Acct:[id number] Age/Sex: 78 / M Adm Date: 5 Loc: Room: [address] [place] [address] Type: ADM IN Attending Dr: Denzel Zamora MD Copies to: DO Komal Bajwa II, MD Rahul Prasad, MD~ HPI Consult Date: 09/11/24 Control Operator Flow Coat: Jamel Packer DO [facility] Medical History Chronic back pain Chronic anticoagulation [...] mg PO DAILY 12/27/17 [History Confirmed 09/11/24] gzrpvdvw-pws-mmxbt acid 0.4 mg-lycopene 300 mcg-lutein 250 mcg [...] Aaron Mock M.D.09/11/2024 10:20 AM Dictation Location: [facility]- Therapy Recommendations Therapy Recommendations: ST Recommendations ST Recommended Services at Speech [facility],13/03 Supervision Discharge Assessment/Plan (1) Myasthenia gravis: Plan [...] follow Documented By: Jamel Packer DO 09/11/24 1550 Signed By: <Electronically signed by Jamel Packer DO> 09/11/24 1602 [facility] Work Phone: 1(156) 765-738601-22-2025 History of Present illness Narrative* Leela Bocanegra NP - 09/11/2024 10:31 AM EST Pt needs refill documented in this encounterJohn J. Pershing VA Medical [id number] Consult note Author Jamel Packer [facility] Note Date/Time September 11, 2024 4 :09pm [facility] [address] [place] [address] Neurology Consult Note Signed Patient: Taurus Garcia MR#: [id number] : 1945 Acct:[id number] Age/Sex: 78 / M Adm Date: 5 Loc: Room: [address] [place] [address] Type: ADM IN Attending Dr: Denzel Zamora MD Copies to: DO Komal Bajwa II, MD Rahul Prasad, MD~ HPI Consult Date: 09/11/24 Control Operator Flow Coat: Jamel Packer DO [facility] Medical History Chronic back pain Chronic anticoagulation [...] mg PO DAILY 12/27/17 [History Confirmed 09/11/24] ljwtjmpj-myl-rqoqc acid 0.4 mg-lycopene 300 mcg-lutein 250 mcg [...] Aaron Mock M.D.09/11/2024 10:20 AM Dictation Location: [place] [address] Therapy Recommendations Therapy Recommendations: ST Recommendations ST Recommended Services at Speech [facility],13/03 Supervision Discharge Assessment/Plan (1) Myasthenia gravis: Plan [...] follow Documented By: Jamel Packer DO 09/11/24 3640 Signed By: <Electronically signed by Jamel Packer DO> 09/11/24 4354 [facility] Work Phone: [phone]) 224-128112-04-2024 History of Present illness Narrative* Leela Bocanegra, [...] obesity and lack ofexercise. Treatments tried: Used Gary in the past for pain management. URI [...] DAILY WITH FOOD 180 tablet 3 HYDROcodone-acetaminophen (Gary) 5-325 MG tablet Take 1 tablet by [...] mouth Daily 100 tablet 3 nystatin (Mycostatin) 718161 UNIT/GM powder APPLY TO THE AFFECTED AREA(S) [...] Diagnosis Date Acute respiratory failure with hypoxia ([facility]) 11/17/2023 Acute respiratory insufficiency 12/15/2018 d/t Pulmonary Emboli Allergic rhinitis due to other allergen Autoimmune disorder (CMS/HCC) Bilateral pulmonary embolism (CMS/HCC) 2019 Acute Hypoxic Resp. 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 Cervical radiculopathy at C8 05/2017 CTS (carpal tunnel syndrome) 05/2017 Bilateral Essential hypertension, benign ([facility]) Facial droop History of being hospitalized 06/19/2024 Myasthenia Gravis Exacerbation, Weakness, Dyspnea History of being hospitalized 07/09/2024 Generalized Weakness, MATT History of echocardiogram 12/15/2018 EF 60-65%, LVH Hypertension (CMS/[facility]) Impaired glucose tolerance test Oral Lumbosacral spondylosis without myelopathy LVH (left ventricular hypertrophy) 12/15/2018 ECHO EF 60-65% Macular edema 2008 /pucker Muscle cramp Myasthenia gravis (CMS/HCC) 12/27/2017 / dyspnea Myasthenic crisis ([facility]/HCC) 05/10/2023 Obesity Obstructive sleep apnea (adult) (pediatric) Pulmonary emboli ([facility]/HCC) 11/17/2023 Pulmonary embolism ([facility]/HCC) 11/2018 Pure hypercholesterolemia (CMS/HCC) Shortness of breath [...] lab Lumbosacral spondylosis without myelopathy - HYDROcodone-acetaminophen (Gary) 5-325 MG tablet; Take 1 tablet by [...] No follow-ups on file. documented in this encounterJohn J. Pershing VA Medical [id number] Evaluation note* Diagnosis Localized edema- Primary Edema Stage 3a chronic kidney disease (HCC) ([facility]/HCC) Lumbosacral spondylosis without myelopathy Acute non-recurrent sinusitis of other sinus documented in this encounter John J. Pershing [facility] Medical [id number] Radiology Diagnostic study [facility] [place] [address] CT Scan Report Signed Patient: Taurus Garcia MR#: [id number] : 1945 Acct:[id number] Age/Sex: 78 / M ADM Date: 4 Loc: ER Room: Type: [facility] ER Attending Dr: Copies to: Juli Thomas APRN~ Ordering Provider: Juli Thomas APRN Date of Service: 07/09/24 CT/CT angio head: vision changes ([id number]) CT/CT angio neck: vision changes CTA OF THE HEAD AND NECK WITH CONTRAST COMPARISON: None CLINICAL DATA: Blurred vision, increased weakness and pain all over. Spiral images were obtained through the head and neck following 90 mL Isovue- 370. Sagittal and coronal MIP as well as 3-D volume rendered reconstructions ofthe carotid arteries and [place] of [place] were reviewed. Stenosis is evaluated [...] Aide Moe M.D.07/09/2024 4:50 PM Dictation Location: [place] [address] Transcribed By: [facility] 07/09/241649 Dictated By: Aide Moe MD 07/09/24 1636 Signed By: 07/09/24 1650 [facility] Work Phone: 1(966) 237-768311-19-2024 Radiology Diagnostic study [facility] [place] [address] [place] [address] CT Scan Report Signed Patient: Taurus Garcia MR#: [id number] : 1945 Acct:[id number] Age/Sex: 78 / M ADM Date: 4 Loc: ER Room: Type: [facility] ER Attending Dr: Copies to: Juli Thomas [...] Aide Moe M.D.07/09/2024 4:30 PM Dictation Location: [place] [address] Transcribed By: [facility] 07/09/24 1630 Dictated By: Aide Moe MD 07/09/24 1624 Signed By: 07/09/24 1630 [facility] Work Phone: 1(434) 134-655911-14-2024 Discharge summary Author Silvestre Grover [facility] Note Date/Time July 04, 2024 7:50am [facility] [address] [place] [address] Discharge Summary Signed Patient: Taurus Garcia MR#: [id number] : 1945 Acct:[id number] Age/Sex: 78 / M Adm Date: 4 Loc: Room: 8H1592-[address]: Silvestre Grover MD Copies to: [...] pat area dry, apply skin prep to libertda wound, apply Therohoney gel to wound bed and top with polymen. Secure with opsite. Change Every 3 days and PRN. Code status: Labs (if applicable): Imaging (if applicable): Any other additional instructions (i.e. Smith care, PICC care, PEG tube feeding directions, abdominal binders, weights, etc.). Your [facility] Health agency is [facility] (or enter a different Home Health [...] Preparation H(pe,cb) 0.25-88.44 % Suppository 1 supp TX BID PRN (Reason: hemorrhoids) Qty: 0 0RF [...] Up: [facility] [Outside] Komal Schaffer II, MD [Primary Care [...] signed by Silvestre Grover MD> 07/04/24 0750 [facility] Work Phone: [phone]) 805-129211-14-2024 [place] [id number] Discharge Summary Signed Patient: Taurus Garcia MR#: [id number] : 1945 Acct:[id number] Age/Sex: 78 / M Adm Date: 4 Loc: Room: [address] [place] [address]: Silvestre Grover MD Copies to: [...] weights, etc.). Your [facility] Health agency is [facility] (or enter a different Home Health [...] Preparation H(pe,cb) 0.25-88.44 % Suppository 1 supp TX BID PRN (Reason: hemorrhoids) Qty: 0 0RF [...] Up: [facility] [Outside] Komal Schaffer II, MD [Primary Care [...] MD 07/04/24 0745 Signed By: 07/04/24 0750 [facility]11-13-2024 Progress note Author Silvestre Grover [facility] Note Date/Time July 03, 2024 1:55pm [facility] [address] [place] [address] Physiatry(Rehab) Progress Note Signed Patient: Taurus Garcia MR#: [id number] : 1945 Acct:[id number] Age/Sex: 78 / M Adm Date: 4 Loc: Room: [address] [place] [address] Type: ADM IN Attending Dr: Silvestre Grover [...] mg 06/22/24 14:58 Bisacodyl 10 Mg Supp.Rect TX 06/22/25 14:57 DAILY PRN Constipation Diclofenac Sodium 2 gm 06/27/24 14:00 07/03/24 08:37 Diclofenac Sodium 1% Gel 100 Gm Tube TOPICAL 06/27/25 13:59 2 gm TID DORI Administration Docusate Sodium 100 mg 06/22/24 14:58 Docusate 100 Mg Capsule PO 06/22/25 14:57 BID PRN Constipation Docusate Sodium 283 mg 06/22/24 14:58 Docusate Enema 283 Mg/5 Ml Enema TX 06/22/25 14:57 DAILY PRN Constipation Fish Oil 1,000 mg 06/22/24 21:00 07/03/24 08:36 [place]-3/Fish Oil 1,000 Mg Capsule PO 06/22/25 20:59 [...] Multi-Ingredient Cream 1 applic 07/02/24 09:49 Lanolin Alcohol/Mo/W.Pet/[place] (Minerin) 454 Gm Jar TOPICAL 07/02/25 20:59 [...] 20:59 40 mg BID DORI Administration Phenyleph/Shark Oil/[place] Butter 1 supp 06/22/24 14:57 Phenylephrine/[place] Butter 6.25 Mg/2211 Mg 1 Supp [place] 06/22/25 14:56 BID PRN hemorrhoids Potassium Chloride [...] 08:59 15 mg DAILY DORI Administration Pyridostigmine [place] 60 mg 06/22/24 18:00 07/03/24 08:37 Pyridostigmine [place] 60 Mg Tablet PO 06/22/25 17:59 60 [...] equipment to enhance the patient's a functional jewish Ensure adequate nutrition and hydration Sleep Discharge planning. Patient was personally seen by me, Dr. Grover, on the day of encounter, reviewed the history and the relevant portions of the chart, including current orders, allied health and community health consultant notes, labs/imaging and performed garcia elements of exam and I formulated the plan of care and facilitated the medical decision making. I completed a substantive portion of this encounter, the medical decision makingportion of this note in its entirety, including Allied health note review, nursing note review, community health consultant note review, discussion with nursing and case management, and more than 50% of my time was spent on counseling and coordination of care, time spent 25 minutes Documented By: Silvestre Grover MD 07/03/24 2057 Signed By: <Electronically signed by Silvestre Grover MD> 07/03/24 6978 [facility] Work Phone: 1(779) 313-741811-13-2024 [place] [address] Physiatry(Rehab) Progress Note Signed Patient: Taurus Garcia MR#: [id number] : 1945 Acct:[id number] Age/Sex: 78 / M Adm Date: 4 Loc: 5T Room: [id number] Type: ADM IN Attending Dr: Silvestre Grover [...] mg 06/22/24 14:58 Bisacodyl 10 Mg Supp.Rect TX 06/22/25 14:57 DAILY PRN Constipation Diclofenac Sodium 2 gm 06/27/24 14:00 07/03/24 08:37 Diclofenac Sodium 1% Gel 100 Gm Tube TOPICAL 06/27/25 13:59 2 gm TID DORI Administration Docusate Sodium 100 mg 06/22/24 14:58 Docusate 100 Mg Capsule PO 06/22/25 14:57 BID PRN Constipation Docusate Sodium 283 mg 06/22/24 14:58 Docusate Enema 283 Mg/5 Ml Enema TX 06/22/25 14:57 DAILY PRN Constipation Fish Oil 1,000 mg 06/22/24 21:00 07/03/24 08:36 [place]-3/Fish Oil 1,000 Mg Capsule PO 06/22/25 20:59 [...] Multi-Ingredient Cream 1 applic 07/02/24 09:49 Lanolin Alcohol/Mo/W.Pet/[place] (Minerin) 454 Gm Jar TOPICAL 07/02/25 20:59 [...] 06/22/24 21:00 07/03/24 08:37 Pantoprazole 40 Mg Tablet. PO 06/22/25 20:59 40 mg BID DORI Administration Phenyleph/Shark Oil/[place] Butter 1 supp 06/22/24 14:57 Phenylephrine/[place] Butter 6.25 Mg/2211 Mg 1 Supp [place] 06/22/25 14:56 BID PRN hemorrhoids Potassium Chloride [...] 08:59 15 mg DAILY DORI Administration Pyridostigmine [place] 60 mg 06/22/24 18:00 07/03/24 08:37 Pyridostigmine [place] 60 Mg Tablet PO 06/22/25 17:59 60 mg QID DORI Administration Saccharomyces Boulardii 250 mg 07/02/24 21:00 07/03/24 08:36 Saccharomyces Boulardii 250 Mg Capsule PO 07/02/25 20:59 250 mg BID DORI Administration Sennosides 17.2 mg 06/23/24 12:00 Sennosides 8.6 Mg Tablet PO 11/03/25 11:59 DAILY@12 PRN If no BM in [...] equipment to enhance the patient's a functional jewish Ensure adequate nutrition and hydration Sleep Discharge planning. Patient was personally seen by me, Dr. Grover, on the day of encounter, reviewed the history and therelevant portions of the chart, including current orders, allied health and community health consultant notes, labs/imaging and performed garcia elements of exam and I formulated the plan of care and facilitated the medical decision making. I completed a substantive portion of this encounter, the medical decision makingportion of this note in its entirety, including Allied health note review, nursing note review, community health consultant note review,discussion with nursing and case management, and more than 50% of my time was spent on counseling and coordination of care, time spent 25 minutes Documented By: Silvestre Grover MD 07/03/24 1354 Signed By: 07/03/24 1355 [facility]11-11-2024 Progress note Author Silvestre Grover [facility] Note Date/Time July 01, 2024 1:54pm [facility] [address] [place] [address] Physiatry(Rehab) Progress Note Signed Patient: Taurus Garcia MR#: [id number] : 1945 Acct:[id number] Age/Sex: 78 / M Adm Date: 4 Loc: Room: 5C8899-2 Type: ADM IN Attending Dr: Silvestre Grover [...] mg 06/22/24 14:58 Bisacodyl 10 Mg Supp.Rect TX 06/22/25 14:57 DAILY PRN Constipation Diclofenac Sodium 2 gm 06/27/24 14:00 07/01/24 08:00 Diclofenac Sodium 1% Gel 100 Gm Tube TOPICAL 06/27/25 13:59 2 gm TID DORI Administration Docusate Sodium 100 mg 06/22/24 14:58 Docusate 100 Mg Capsule PO 06/22/25 14:57 BID PRN Constipation Docusate Sodium 283 mg 06/22/24 14:58 Docusate Enema 283 Mg/5 Ml Enema TX 06/22/25 14:57 DAILY PRN Constipation Fish Oil 1,000 mg 06/22/24 21:00 07/01/24 07:59 [place]-3/Fish Oil 1,000 Mg Capsule PO 06/22/25 20:59 [...] 20:59 40 mg BID DORI Administration Phenyleph/Shark Oil/[place] Butter 1 supp 06/22/24 14:57 Phenylephrine/[place] Butter 6.25 Mg/2211 Mg 1 Supp [place] 06/22/25 14:56 BID PRN hemorrhoids Potassium Chloride [...] 08:59 15 mg DAILY DORI Administration Pyridostigmine [place] 60 mg 06/22/24 18:00 07/01/24 07:59 Pyridostigmine [place] 60 Mg Tablet PO 06/22/25 17:59 60 [...] equipment to enhance the patient's a functional jewish Ensure adequate nutrition and hydration Sleep Discharge planning. Patient was personally seen by me, Dr. Grover, on the day of encounter, reviewed the history and the relevant portions of the chart, including current orders, allied health and community health consultant notes, labs/imaging and performed garcia elements of exam and I formulated the plan of care and facilitated the medical decision making. I completed a substantive portion of this encounter, the medical decision makingportion of this note in its entirety, including Allied health note review, nursing note review, community health consultant note review, discussion with nursing and case management, and more than 50% of my time was spent on counseling and coordination of care, time spent 25 minutes Documented By: Silvestre Grover MD 07/01/24 7906 Signed By: <Electronically signed by Silvestre Grover MD> 07/01/24 1354 [facility] Work Phone: 1(355) 269-577511-11-2024 [place] [address] Physiatry(Rehab) Progress Note Signed Patient: Taurus Garcia MR#: [id number] : 1945 Acct:[id number] Age/Sex: 78 / M Adm Date: 4 Loc: Room: 8E4573-9 Type: ADM IN Attending Dr: Silvestre Grover [...] mg 06/22/24 14:58 Bisacodyl 10 Mg Supp.Rect TX 06/22/25 14:57 DAILY PRN Constipation Diclofenac Sodium 2 gm 06/27/24 14:00 07/01/24 08:00 Diclofenac Sodium 1% Gel 100 Gm Tube TOPICAL 06/27/25 13:59 2 gm TID DORI Administration Docusate Sodium 100 mg 06/22/24 14:58 Docusate 100 Mg Capsule PO 06/22/25 14:57 BID PRN Constipation Docusate Sodium 283 mg 06/22/24 14:58 Docusate Enema 283 Mg/5 Ml Enema TX 06/22/25 14:57 DAILY PRN Constipation Fish Oil 1,000 mg 06/22/24 21:00 07/01/24 07:59 [place]-3/Fish Oil 1,000 Mg Capsule PO 06/22/25 20:59 [...] 20:59 40 mg BID DORI Administration Phenyleph/Shark Oil/[place] Butter 1 supp 06/22/24 14:57 Phenylephrine/[place] Butter 6.25 Mg/2211 Mg 1 Supp TX 06/22/25 14:56 BID PRN hemorrhoids Potassium Chloride [...] 08:59 15 mg DAILY DORI Administration Pyridostigmine [place] 60 mg 06/22/24 18:00 07/01/24 07:59 Pyridostigmine [place] 60 Mg Tablet PO 06/22/25 17:59 60 [...] equipment to enhance the patient's a functional jewish Ensure adequate nutrition and hydration Sleep Discharge planning. Patient was personally seen by me, Dr. Grover, on the day of encounter, reviewed the history and therelevant portions of the chart, including current orders, allied health and community health consultant notes, labs/imaging and performed garcia elements of exam and I formulated the plan of care and facilitated the medical decision making. I completed a substantive portion of this encounter, the medical decision makingportion of this note in its entirety, including Allied health note review, nursing note review, community health consultant note review,discussion with nursing and case management, and more than 50% of my time was spent on counseling and coordination of care, time spent 25 minutes Documented By: Silvestre Grover MD 07/01/24 1355 Signed By: 07/01/24 1356 [facility]11-10-2024 Progress note Author Fidel Bennett [facility] Note Date/Time June 30, 2024 9:22pm [facility] [address] [place] [address] Physiatry(Rehab) Progress Note Signed Patient: Taurus Garcia MR#: [id number] : 1945 Acct:[id number] Age/Sex: 78 / M Adm Date: 4 Loc: 5T Room: 3U8576-2 Type: ADM IN Attending Dr: Silvestre Grover [...] mg 06/22/24 14:58 Bisacodyl 10 Mg Supp.Rect TX 06/22/25 14:57 DAILY PRN Constipation Diclofenac Sodium 2 gm 06/27/24 14:00 06/30/24 14:34 Diclofenac Sodium 1% Gel 100 Gm Tube TOPICAL 06/27/25 13:59 Not Given TID DORI Docusate Sodium 100 mg 06/22/24 14:58 Docusate 100 Mg Capsule PO 06/22/25 14:57 BID PRN Constipation Docusate Sodium 283 mg 06/22/24 14:58 Docusate Enema 283 Mg/5 Ml Enema TX 06/22/25 14:57 DAILY PRN Constipation Fish Oil 1,000 mg 06/22/24 21:00 06/30/24 08:50 [place]-3/Fish Oil 1,000 Mg Capsule PO 06/22/25 20:59 [...] 20:59 40 mg BID DORI Administration Phenyleph/Shark Oil/[place] Butter 1 supp 06/22/24 14:57 Phenylephrine/[place] Butter 6.25 Mg/2211 Mg 1 Supp TX 06/22/25 14:56 BID PRN hemorrhoids Potassium Chloride [...] 08:59 15 mg DAILY DORI Administration Pyridostigmine [place] 60 mg 06/22/24 18:00 06/30/24 17:46 Pyridostigmine [place] 60 Mg Tablet PO 06/22/25 17:59 60 [...] equipment to enhance the patient's a functional jewish Ensure adequate nutrition and hydration Sleep Discharge planning. Patient was personally seen by me, Dr. Bennett, on the day of encounter, reviewed the history and the relevant portions of the chart, including current orders, allied health and community health consultant notes, labs/imaging and performed garcia elements of exam and I formulated the plan of care and facilitated the medical decision making. I completed a substantive portion of this encounter, the medical decision makingportion of this note in its entirety, including Allied health note review, nursing note review, community health consultant note review, discussion with nursing and case management, and more than 50% of my time was spent on counseling and coordination of care, time spent 25 minutes Documented By: Fidel Bennett MD 2118 Signed By: <Electronically signed by Fidel Bennett MD> 06/30/242121 [facility] Work Phone: 1(974) 983-458111-10-[address] [address] Physiatry(Rehab) Progress Note Signed Patient: Taurus Garcia MR#: [id number] : 1945 Acct:[id number] Age/Sex: 78 / M Adm Date: 4 Loc: Room: 8Z5911-4 Type: ADM IN Attending Dr: Silvestre Grover [...] 94 L Room Air 06/30/24 16:02 06/30/24 16:06/30/24 16:02 06/30/24 16:02 06/30/24 16:02 06/30/24 16:03 [...] mg 06/22/24 14:58 Bisacodyl 10 Mg Supp.Rect TX 06/22/25 14:57 DAILY PRN Constipation Diclofenac Sodium 2 gm 06/27/24 14:00 06/30/24 14:34 Diclofenac Sodium 1% Gel 100 Gm Tube TOPICAL 06/27/25 13:59 Not Given TID DORI Docusate Sodium 100 mg 06/22/24 14:58 Docusate 100 Mg Capsule PO 06/22/25 14:57 BID PRN Constipation Docusate Sodium 283 mg 06/22/24 14:58 Docusate Enema 283 Mg/5 Ml Enema TX 06/22/25 14:57 DAILY PRN Constipation Fish Oil 1,000 mg 06/22/24 21:00 06/30/24 08:50 [place]-3/Fish Oil 1,000 Mg Capsule PO 06/22/25 20:59 [...] 20:59 40 mg BID DORI Administration Phenyleph/Shark Oil/[place] Butter 1 supp 06/22/24 14:57 Phenylephrine/[place] Butter 6.25 Mg/2211 Mg 1 Supp TX 06/22/25 14:56 BID PRN hemorrhoids Potassium Chloride [...] 08:59 15 mg DAILY DORI Administration Pyridostigmine [place] 60 mg 06/22/24 18:00 06/30/24 17:46 Pyridostigmine [place] 60 Mg Tablet PO 06/22/25 17:59 60 [...] equipment to enhance the patient's a functional jewish Ensure adequate nutrition and hydration Sleep Discharge planning. Patient was personally seen by me, Dr. Bennett, on the day of encounter, reviewed the history and the relevant portions of the chart, including current orders, allied health and community health consultant notes, labs/imaging and performed garcia elements of exam and I formulated the plan of care and facilitated the medical decision making. I completed a substantive portion of this encounter, the medical decision makingportion of this note in its entirety, including Allied health note review, nursing note review, community health consultant note review,discussion with nursing and case management, and more than 50% of my time was spent on counseling and coordination of care, time spent 25 minutes Documented By: Fidel Bennett MD 2118 Signed By: 06/30/242121 [facility]11-10-2024 Progress note Author Susanne Sharma [facility] Note Date/Time June 30, 2024 4:13pm [facility] [address] [place] [address] Hospitalist Progress Note Signed Patient: Taurus Garcia MR#: [id number] : 1945 Acct:[id number] Age/Sex: 78 / M Adm Date: 4 Loc: 5T Room: 5D2539-3 Type: ADM IN Attending Dr: Silvestre Grover [...] mg 06/22/24 14:58 Bisacodyl 10 Mg Supp.Rect TX 06/22/25 14:57 DAILY PRN Constipation Diclofenac Sodium 2 gm 06/27/24 14:00 06/30/24 08:53 Diclofenac Sodium 1% Gel 100 Gm Tube TOPICAL 06/27/25 13:59 2 gm TID DORI Administration Docusate Sodium 100 mg 06/22/24 14:58 Docusate 100 Mg Capsule PO 06/22/25 14:57 BID PRN Constipation Docusate Sodium 283 mg 06/22/24 14:58 Docusate Enema 283 Mg/5 Ml Enema TX 06/22/25 14:57 DAILY PRN Constipation Fish Oil 1,000 mg 06/22/24 21:00 06/30/24 08:50 [place]-3/Fish Oil 1,000 Mg Capsule PO 06/22/25 20:59 [...] 20:59 40 mg BID DORI Administration Phenyleph/Shark Oil/[place] Butter 1 supp 06/22/24 14:57 Phenylephrine/[place] Butter 6.25 Mg/2211 Mg 1 Supp TX 06/22/25 14:56 BID PRN hemorrhoids Potassium Chloride [...] 08:59 15 mg DAILY DORI Administration Pyridostigmine [place] 60 mg 06/22/24 18:00 06/30/24 08:50 Pyridostigmine [place] 60 Mg Tablet PO 06/22/25 17:59 60 [...] <Electronically signed by Kevin Leo MD> 06/30/24 [facility] Work Phone: 1(870) 572-778611-10-2024 [place] [address] Hospitalist Progress Note Signed Patient: Taurus Garcia MR#: [id number] : 1945 Acct:[id number] Age/Sex: 78 / M Adm Date: 4 Loc: Room: 2E4517-2 Type: ADM IN Attending Dr: Silvestre Grover [...] mg 06/22/24 14:58 Bisacodyl 10 Mg Supp.Rect TX 06/22/25 14:57 DAILY PRN Constipation Diclofenac Sodium 2 gm 06/27/24 14:00 06/30/24 08:53 Diclofenac Sodium 1% Gel 100 Gm Tube TOPICAL 06/27/25 13:59 2 gm TID DORI Administration Docusate Sodium 100 mg 06/22/24 14:58 Docusate 100 Mg Capsule PO 06/22/25 14:57 BID PRN Constipation Docusate Sodium 283 mg 06/22/24 14:58 Docusate Enema 283 Mg/5 Ml Enema TX 06/22/25 14:57 DAILY PRN Constipation Fish Oil 1,000 mg 06/22/24 21:00 06/30/24 08:50 [place]-3/Fish Oil 1,000 Mg Capsule PO 06/22/25 20:59 [...] 20:59 40 mg BID DORI Administration Phenyleph/Shark Oil/[place] Butter 1 supp 06/22/24 14:57 Phenylephrine/[place] Butter 6.25 Mg/2211 Mg 1 Supp TX 06/22/25 14:56 BID PRN hemorrhoids Potassium Chloride [...] 08:59 15 mg DAILY DORI Administration Pyridostigmine [place] 60 mg 06/22/24 18:00 06/30/24 08:50 Pyridostigmine [place] 60 Mg Tablet PO 06/22/25 17:59 60 [...] 1145 Signed By: 06/30/24 1159 06/30/24 1613 [facility]11-08-2024 Progress note Author Silvestre Grover [facility] Note Date/Time June 28, 2024 2 :35pm [facility] [address] [place] [address] Physiatry(Rehab) Progress Note Signed Patient: Taurus Garcia MR#: [id number] : 1945 Acct:[id number] Age/Sex: 78 / M Adm Date: 4 Loc: Room: [address] [place] [address] Type: ADM IN Attending Dr: Silvestre Grover [...] mg 06/22/24 14:58 Bisacodyl 10 Mg Supp.Rect TX 06/22/25 14:57 DAILY PRN Constipation Diclofenac Sodium 2 gm 06/27/24 14:00 06/28/24 14:01 Diclofenac Sodium 1% Gel 100 Gm Tube TOPICAL 06/27/25 13:59 2 gm TID DORI Administration Docusate Sodium 100 mg 06/22/24 14:58 Docusate 100 Mg Capsule PO 06/22/25 14:57 BID PRN Constipation Docusate Sodium 283 mg 06/22/24 14:58 Docusate Enema 283 Mg/5 Ml Enema TX 06/22/25 14:57 DAILY PRN Constipation Fish Oil 1,000 mg 06/22/24 21:00 06/28/24 09:07 [place]-3/Fish Oil 1,000 Mg Capsule PO 06/22/25 20:59 [...] DORI Administration Lisinopril 20 mg 06/23/24 09:00 11/08/24 09:08 Lisinopril 20 Mg Tablet PO 06/23/25 [...] 20:59 40 mg BID DORI Administration Phenyleph/Shark Oil/[place] Butter 1 supp 06/22/24 14:57 Phenylephrine/[place] Butter 6.25 Mg/2211 Mg 1 Supp TX 06/22/25 14:56 BID PRN hemorrhoids Potassium Chloride [...] 08:59 15 mg DAILY DORI Administration Pyridostigmine [place] 60 mg 06/22/24 18:00 06/28/24 14:00 Pyridostigmine [place] 60 Mg Tablet PO 06/22/25 17:59 60 [...] equipment to enhance the patient's a functional jewish Ensure adequate nutrition and hydration Sleep Discharge planning. Patient was personally seen by me, Dr. Grover, on the day of encounter, reviewed the history and the relevant portions of the chart, including current orders, allied health and community health consultant notes, labs/imaging and performed garcia elements of exam and I formulated the plan of care and facilitated the medical decision making. I completed a substantive portion of this encounter, the medical decision makingportion of this note in its entirety, including Allied health note review, nursing note review, community health consultant note review, discussion with nursing and case management, and more than 50% of my time was spent on counseling and coordination of care, time spent 35 minutes Documented By: Silvestre Grover MD 06/28/24 1433 Signed By: <Electronically signed by Silvestre Grover MD> 06/28/24 9675 [facility] Work Phone: 1(168) 466-280811-08-[address] [address] Physiatry(Rehab) Progress Note Signed Patient: Taurus Garcia MR#: [id number] : 1945 Acct:[id number] Age/Sex: 78 / M Adm Date: 4 Loc: Room: 6T2225-7 Type: ADM IN Attending Dr: Silvestre Grover [...] mg 06/22/24 14:58 Bisacodyl 10 Mg Supp.Rect TX 06/22/25 14:57 DAILY PRN Constipation Diclofenac Sodium 2 gm 06/27/24 14:00 06/28/24 14:01 Diclofenac Sodium 1% Gel 100 Gm Tube TOPICAL 06/27/25 13:59 2 gm TID DORI Administration Docusate Sodium 100 mg 06/22/24 14:58 Docusate 100 Mg Capsule PO 06/22/25 14:57 BID PRN Constipation Docusate Sodium 283 mg 06/22/24 14:58 Docusate Enema 283 Mg/5 Ml Enema TX 06/22/25 14:57 DAILY PRN Constipation Fish Oil 1,000 mg 06/22/24 21:00 06/28/24 09:07 [place]-3/Fish Oil 1,000 Mg Capsule PO 06/22/25 20:59 [...] 20:59 40 mg BID DORI Administration Phenyleph/Shark Oil/[place] Butter 1 supp 06/22/24 14:57 Phenylephrine/[place] Butter 6.25 Mg/2211 Mg 1 Supp TX 06/22/25 14:56 BID PRN hemorrhoids Potassium Chloride [...] 08:59 15 mg DAILY DORI Administration Pyridostigmine [place] 60 mg 06/22/24 18:00 06/28/24 14:00 Pyridostigmine [place] 60 Mg Tablet PO 06/22/25 17:59 60 [...] equipment to enhance the patient's a functional jewish Ensure adequate nutrition and hydration Sleep Discharge planning. Patient was personally seen by me, Dr. Grover, on the day of encounter, reviewed the history and therelevant portions of the chart, including current orders, allied health and community health consultant notes, labs/imaging and performed garcia elements of exam and I formulated the plan of care and facilitated the medical decision making. I completed a substantive portion of this encounter, the medical decision makingportion of this note in its entirety, including Allied health note review, nursing note review, community health consultant note review,discussion with nursing and case management, and more than 50% of my time was spent on counseling and coordination of care, time spent 35 minutes Documented By: Silvestre Grover MD 06/28/24 1433 Signed By: 06/28/24 1435 [facility]11-07-2024 Progress note Author Silvestre Grover [facility] Note Date/Time June 27, 2024 1 1:35am [facility] [address] [place] [address] Physiatry(Rehab) Progress Note Signed Patient: Taurus Garcia MR#: [id number] : 1945 Acct:[id number] Age/Sex: 78 / M Adm Date: 4 Loc: 5T Room: 9G0059-2 Type: ADM IN Attending Dr: Silvestre Grover [...] mg 06/22/24 14:58 Bisacodyl 10 Mg Supp.Rect TX 06/22/25 14:57 DAILY PRN Constipation Diclofenac Sodium 2 gm 06/27/24 14:00 Diclofenac Sodium 1% Gel 100 Gm Tube TOPICAL 06/27/25 13:59 TID DORI Docusate Sodium 100 mg 06/22/24 14:58 Docusate 100 Mg Capsule PO 06/22/25 14:57 BID PRN Constipation Docusate Sodium 283 mg 06/22/24 14:58 Docusate Enema 283 Mg/5 Ml Enema TX 06/22/25 14:57 DAILY PRN Constipation Fish Oil 1,000 mg 06/22/24 21:00 06/27/24 09:00 [place]-3/Fish Oil 1,000 Mg Capsule PO 06/22/25 20:59 [...] 20:59 40 mg BID DORI Administration Phenyleph/Shark Oil/[place] Butter 1 supp 06/22/24 14:57 Phenylephrine/[place] Butter 6.25 Mg/2211 Mg 1 Supp TX 06/22/25 14:56 BID PRN hemorrhoids Potassium Chloride [...] 08:59 15 mg DAILY DORI Administration Pyridostigmine [place] 60 mg 06/22/24 18:00 06/27/24 09:01 Pyridostigmine [place] 60 Mg Tablet PO 06/22/25 17:59 60 [...] equipment to enhance the patient's a functional jewish Ensure adequate nutrition and hydration Sleep Discharge planning. Patient was personally seen by me, Dr. Grover, on the day of encounter, reviewed the history and the relevant portions of the chart, including current orders, allied health and community health consultant notes, labs/imaging and performed garcia elements of exam and I formulated the plan of care and facilitated the medical decision making. I completed a substantive portion of this encounter, the medical decision makingportion of this note in its entirety, including Allied health note review, nursing note review, community health consultant note review, discussion with nursing and case management, and more than 50% of my time was spent on counseling and coordination of care, time spent 35 minutes Documented By: Silvestre Grover MD 06/27/241133 Signed By: <Electronically signed by Silvestre Grover MD> 06/27/24 1135 [facility] Work Phone: 1(154) 842-534211-07-2024 [place] [address] Physiatry(Rehab) Progress Note Signed Patient: Taurus Garcia MR#: [id number] : 1945 Acct:[id number] Age/Sex: 78 / M Adm Date: 4 Loc: Room: 6B3939-1 Type: ADM IN Attending Dr: Silvestre Grover [...] mg 06/22/24 14:58 Bisacodyl 10 Mg Supp.Rect TX 06/22/25 14:57 DAILY PRN Constipation Diclofenac Sodium 2 gm 06/27/24 14:00 Diclofenac Sodium 1% Gel 100 Gm Tube TOPICAL 06/27/25 13:59 TID DORI Docusate Sodium 100 mg 06/22/24 14:58 Docusate 100 Mg Capsule PO 06/22/25 14:57 BID PRN Constipation Docusate Sodium 283 mg 06/22/24 14:58 Docusate Enema 283 Mg/5 Ml Enema TX 06/22/25 14:57 DAILY PRN Constipation Fish Oil 1,000 mg 06/22/24 21:00 06/27/24 09:00 [place]-3/Fish Oil 1,000 Mg Capsule PO 06/22/25 20:59 [...] 20:59 40 mg BID DORI Administration Phenyleph/Shark Oil/[place] Butter 1 supp 06/22/24 14:57 Phenylephrine/[place] Butter 6.25 Mg/2211 Mg 1 Supp [place] 06/22/25 14:56 BID PRN hemorrhoids Potassium Chloride [...] 08:59 15 mg DAILY DORI Administration Pyridostigmine [place] 60 mg 06/22/24 18:00 06/27/24 09:01 Pyridostigmine [place] 60 Mg Tablet PO 06/22/25 17:59 60 [...] equipment to enhance the patient's a functional jewish Ensure adequate nutrition and hydration Sleep Discharge planning. Patient was personally seen by me, Dr. Grover, on the day of encounter, reviewed the history and therelevant portions of the chart, including current orders, allied health and community health consultant notes, labs/imaging and performed garcia elements of exam and I formulated the plan of care and facilitated the medical decision making. I completed a substantive portion of this encounter, the medical decision makingportion of this note in its entirety, including Allied health note review, nursing note review, community health consultant note review,discussion with nursing and case management, and more than 50% of my time was spent on counseling and coordination of care, time spent 35 minutes Documented By: Silvestre Grover MD 06/27/241133 Signed By: 06/27/24 1135 [facility]11-06-2024 Progress note Author Silvestre Grover [facility] Note Date/Time June 26, 2024 1 :34pm [facility] [address] [place] [address] Physiatry(Rehab) Progress Note Signed Patient: Taurus Garcia MR#: [id number] : 1945 Acct:[id number] Age/Sex: 78 / M Adm Date: 4 Loc: 5T Room: 9V5842-5 Type: ADM IN Attending Dr: Silvestre Grover [...] 08:32 06/26/24 06:05 06/26/24 10:22 06/26/24 08:32 11/06/24 08:32 Narrative: Gen: Awake, oriented, cooperative. HEENT: [...] Tablet PO 06/23/25 08:59 5 mg BID DROI Administration Ascorbic Acid 500 mg 06/23/24 09:00 06/26/24 08:27 Ascorbic Acid 500 Mg Tablet PO 06/23/25 08:59 500 mg DAILY DORI Administration Atorvastatin Calcium 20 mg 06/22/24 22:00 06/25/24 21:21 Atorvastatin 20 Mg Tablet PO 06/22/25 21:59 20 mg HS DORI Administration Bisacodyl 10 mg 06/22/24 14:58 Bisacodyl 10 Mg Supp.Rect TX 06/22/25 14:57 DAILY PRN Constipation Docusate Sodium 100 mg 06/22/24 14:58 Docusate 100 Mg Capsule PO 06/22/25 14:57 BID PRN Constipation Docusate Sodium 283 mg 06/22/24 14:58 Docusate Enema 283 Mg/5 Ml Enema TX 06/22/25 14:57 DAILY PRN Constipation Fish Oil 1,000 mg 06/22/24 21:00 06/26/24 08:26 [place]-3/Fish Oil 1,000 Mg Capsule PO 06/22/25 20:59 [...] 20:59 40 mg BID DORI Administration Phenyleph/Shark Oil/[place] Butter 1 supp 06/22/24 14:57 Phenylephrine/[place] Butter 6.25 Mg/2211 Mg 1 Supp TX 06/22/25 14:56 BID PRN hemorrhoids Potassium Chloride [...] 08:59 15 mg DAILY DORI Administration Pyridostigmine [place] 60 mg 06/22/24 18:00 06/26/24 08:26 Pyridostigmine [place] 60 Mg Tablet PO 06/22/25 17:59 60 [...] equipment to enhance the patient's a functional jewish Ensure adequate nutrition and hydration Sleep Discharge planning. Patient was personally seen by me, Dr. Grover, on the day of encounter, reviewed the history and the relevant portions of the chart, including current orders, allied health and community health consultant notes, labs/imaging and performed garcia elements of exam and I formulated the plan of care and facilitated the medical decision making. I completed a substantive portion of this encounter, the medical decision makingportion of this note in its entirety, including Allied health note review, nursing note review, community health consultant note review, discussion with nursing and case management, and more than 50% of my time was spent on counseling and coordination of care, time spent 37 minutes Documented By: Silvestre Grover MD 06/26/24 1331 Signed By: <Electronically signed by Silvestre Grover MD> 06/26/24 [facility] Work Phone: 1([phone]) 378-203511-06-2024 [place] [address] Physiatry(Rehab) Progress Note Signed Patient: Taurus Garcia MR#: [id number] : 1945 Acct:[id number] Age/Sex: 78 / M Adm Date: 4 Loc: Room: [address] [place] [address] Type: ADM IN Attending Dr: Silvestre Grover [...] mg 06/22/24 14:58 Bisacodyl 10 Mg Supp.Rect TX 06/22/25 14:57 DAILY PRN Constipation Docusate Sodium 100 mg 06/22/24 14:58 Docusate 100 Mg Capsule PO 06/22/25 14:57 BID PRN Constipation Docusate Sodium 283 mg 06/22/24 14:58 Docusate Enema 283 Mg/5 Ml Enema TX 06/22/25 14:57 DAILY PRN Constipation Fish Oil 1,000 mg 06/22/24 21:00 06/26/24 08:26 [place]-3/Fish Oil 1,000 Mg Capsule PO 06/22/25 20:59 [...] 20:59 40 mg BID DORI Administration Phenyleph/Shark Oil/[place] Butter 1 supp 06/22/24 14:57 Phenylephrine/[place] Butter 6.25 Mg/2211 Mg 1 Supp TX 06/22/25 14:56 BID PRN hemorrhoids Potassium Chloride [...] 08:59 15 mg DAILY DORI Administration Pyridostigmine [place] 60 mg 06/22/24 18:00 06/26/24 08:26 Pyridostigmine [place] 60 Mg Tablet PO 06/22/25 17:59 60 [...] equipment to enhance the patient's a functional jewish Ensure adequate nutrition and hydration Sleep Discharge planning. Patient was personally seen by me, Dr. Grover, on the day of encounter, reviewed the history and therelevant portions of the chart, including current orders, allied health and community health consultant notes, labs/imaging and performed garcia elements of exam and I formulated the plan of care and facilitated the medical decision making. I completed a substantive portion of this encounter, the medical decision makingportion of this note in its entirety, including Allied health note review, nursing note review, community health consultant note review,discussion with nursing and case management, and more than 50% of my time was spent on counseling and coordination of care, time spent 37 minutes Documented By: Silvestre Grover MD 06/26/24 1330 Signed By: 06/26/24 1334 [facility]11-05-2024 Progress note Author Silvestre Grover [facility] Note Date/Time June 25, 2024 4 :17pm [facility] [address] [place] [address] Physiatry(Rehab) Progress Note Signed Patient: Taurus Garcia MR#: [id number] : 1945 Acct:[id number] Age/Sex: 78 / M Adm Date: 4 Loc: Room: 5M5327-5 Type: ADM IN Attending Dr: Silvestre Grover [...] mg 06/22/24 14:58 Bisacodyl 10 Mg Supp.Rect TX 06/22/25 14:57 DAILY PRN Constipation Docusate Sodium 100 mg 06/22/24 14:58 Docusate 100 Mg Capsule PO 06/22/25 14:57 BID PRN Constipation Docusate Sodium 283 mg 11/02/24 14:58 Docusate Enema 283 Mg/5 Ml Enema TX 06/22/25 14:57 DAILY PRN Constipation Fish Oil 1,000 mg 06/22/24 21:00 06/25/24 09:24 [place]-3/Fish Oil 1,000 Mg Capsule PO 06/22/25 20:59 [...] 20:59 40 mg BID DORI Administration Phenyleph/Shark Oil/[place] Butter 1 supp 06/22/24 14:57 Phenylephrine/[place] Butter 6.25 Mg/2211 Mg 1 Supp TX 06/22/25 14:56 BID PRN hemorrhoids Potassium Chloride 20 meq 06/22/24 14:57 Potassium Chloride Er 20 Meq Tab.Er.Prt PO 06/22/25 14:56 DAILY PRN Hypokalemia Potassium Chloride 10 meq 06/26/24 09:00 Potassium Chloride Er 10 Meq Capsule.Er PO 06/26/25 08:59 DAILY DORI Prednisone 15 mg 06/24/24 09:00 06/25/24 09:24 Prednisone 5 Mg Tablet PO 06/24/25 08:59 15 mg DAILY DORI Administration Pyridostigmine [place] 60 mg 06/22/24 18:00 06/25/24 09:24 Pyridostigmine [place] 60 Mg Tablet PO 06/22/25 17:59 60 [...] equipment to enhance the patient's a functional jewish Ensure adequate nutrition and hydration Sleep Discharge planning. Patient was personally seen by me, Dr. Grover, on the day of encounter, reviewed the history and the relevant portions of the chart, including current orders, allied health and community health consultant notes, labs/imaging and performed garcia elements of exam and I formulated the plan of care and facilitated the medical decision making. I completed a substantive portion of this encounter, the medical decision makingportion of this note in its entirety, including Allied health note review, nursing note review, community health consultant note review, discussion with nursing [...] <Electronically signed by Silvestre Grover MD> 06/25/24 2585 [facility] Work Phone: 1(486) 712-464111-05-2024 History and physical note Author Antonia Grier [facility] Note Date/Time June 25, 2024 3 :19pm [facility] [address] [place] [address] Physiatry (Rehab) H&P Signed Patient: Taurus Garcia MR#: [id number] : 1945 Acct:[id number] Age/Sex: 78 / M Adm Date: 4 Loc: Room: 9S2068-5 Type: ADM IN Attending Dr: Silvestre Grover [...] evaluate the burn and make treatment recommendations. [facility] Medical History GERD (gastroesophageal reflux disease) Chronic [...] mg PO DAILY 12/27/17 [History Confirmed 06/19/24] aswifpef-hpd-qlkjh acid 0.4 mg-lycopene 300 mcg-lutein 250 mcg [...] rectal suppository (Preparation H(phenyleph,cocoa buttr)) 1 supp TX BID PRN hemorrhoids #0 ea 06/22/24 [Rx] [...] 24 hour daily monitoring and intervention from Interior Design Professor as well as other consulting physicians including internal medicine as well as 24 hour daily vat house laborer nursing - for medical safe / optimal [...] equipment to enhance the patient's a functional jewish Ensure adequate nutrition and hydration Sleep Discharge planning. I spent 43 minutes for services, including uaqt-yj-bczj encounter with the patient, discussion of the case, plan of care, and exam; and qnjobeh-vv-oxup activities, such as reviewing pertinent community health consultant documentation, recent therapy notes, laboratory and radiology studies, and discussion of case with care team including physician, nursing, bilingual patient support caseworker, and therapists. More than 50 % of time was spent on patient/family counseling or coordination of care. Patient was personally seen by me, Dr. Bennett, on the day of encounter, within 24 hours of rehab admission, reviewed the history and the relevant portions of the chart, including current orders, allied health and community health consultant notes, labs/imaging and performed garcia elements of exam and I formulated the plan of care and facilitated the medical decision making. I completed a substantive portion of this encounter, the medical decision making portion of this note in its entirety, including Allied health note review, nursing note review, community health consultant note review, discussion with nursing and case management, and more than 50% of my time was spent on counseling and coordination of care, time spent 45 minutes Documented By: Antonia Grier APRN 06/22/24 1 500 Signed By: <Electronically signed by ZACH Grier> 06/23/24 1114 <Electronically signed by Silvestre Grover MD> 06/25/24 1519 <Electronically signed by Fidel Bennett MD> 06/24/24 [facility]7 [facility] Work Phone: 1(730) 331-112611-05-2024 [place] [address] Physiatry(Rehab) Progress Note Signed Patient: Taurus Garcia MR#: [id number] : 1945 Acct:[id number] Age/Sex: 78 / M Adm Date: 4 Loc: Room: [address] [place] [address] Type: ADM IN Attending Dr: Silvestre Grover [...] Psych: Mood and affect normal Objective Labs 11/03/24 04:55 06/24/24 06:12 Medications and Allergies Allergies [...] mg 06/22/24 14:58 Bisacodyl 10 Mg Supp.Rect TX 06/22/25 14:57 DAILY PRN Constipation Docusate Sodium 100 mg 06/22/24 14:58 Docusate 100 Mg Capsule PO 06/22/25 14:57 BID PRN Constipation Docusate Sodium 283 mg 06/22/24 14:58 Docusate Enema 283 Mg/5 Ml Enema TX 06/22/25 14:57 DAILY PRN Constipation Fish Oil 1,000 mg 06/22/24 21:00 06/25/24 09:24 [place]-3/Fish Oil 1,000 Mg Capsule PO 06/22/25 20:59 [...] 20:59 40 mg BID DORI Administration Phenyleph/Shark Oil/[place] Butter 1 supp 06/22/24 14:57 Phenylephrine/[place] Butter 6.25 Mg/2211 Mg 1 Supp TX 06/22/25 14:56 BID PRN hemorrhoids Potassium Chloride 20 meq 06/22/24 14:57 Potassium Chloride Er 20 Meq Tab.Er.Prt PO 06/22/25 14:56 DAILY PRN Hypokalemia Potassium Chloride 10 meq 06/26/24 09:00 Potassium Chloride Er 10 Meq Capsule.Er PO 06/26/25 08:59 DAILY DORI Prednisone 15 mg 06/24/24 09:00 06/25/24 09:24 Prednisone 5 Mg Tablet PO 06/24/25 08:59 15 mg DAILY DORI Administration Pyridostigmine [place] 60 mg 06/22/24 18:00 06/25/24 09:24 Pyridostigmine [place] 60 Mg Tablet PO 06/22/25 17:59 60 [...] equipment to enhance the patient's a functional jewish Ensure adequate nutrition and hydration Sleep Discharge planning. Patient was personally seen by me, Dr. Grover, on the day of encounter, reviewed the history and therelevant portions of the chart, including current orders, allied health and community health consultant notes, labs/imaging and performed garcia elements of exam and I formulated the plan of care and facilitated the medical decision making. I completed a substantive portion of this encounter, the medical decision makingportion of this note in its entirety, including Allied health note review, nursing note review, community health consultant note review,discussion with nursing and case management, and more than 50% of my time was spent on counseling and coordination of care, time spent 45 minutes In addition to above, patient's case reviewed at weekly team conference, discussed progress and goals of care, barriers/problems to date and discharge planning. Documented By: Silvestre Grover MD 06/25/24 1052 Signed By: 06/25/24 1617 [facility]11-05-2024 [place] [address] Physiatry (Rehab) H&P Signed Patient: Taurus Garcia MR#: [id number] : 1945 Acct:[id number] Age/Sex: 78 / M Adm Date: 4 Loc: Room: [address] [place] [address] Type: ADM IN Attending Dr: Silvestre Grover MD Copies to: MD Komal Best II, MD Antonia Grier, ZACH Grover MD~ Date of Service: 06/22/2024 [...] days. No consideration for IVIG at this community health. Pulmonary services consulted and assisted with CPAP [...] evaluate the burn and make treatment recommendations. [facility] Medical History GERD (gastroesophageal reflux disease) Chronic [...] mg PO DAILY 12/27/17 [History Confirmed 06/19/24] xovrubow-nbx-tplpi acid 0.4 mg-lycopene 300 mcg-lutein 250 mcg [...] % rectal suppository (Preparation H(phenyleph,cocoa buttr))1 supp TX BID PRN hemorrhoids #0 ea 06/22/24 [Rx] [...] 24 hour daily monitoring and intervention from Interior Design Professor as well as other consulting physicians including internal medicine as well as 24 hour daily vat house laborer nursing - for medical safe / optimal [...] equipment to enhance the patient's a functional jewish Ensure adequate nutrition and hydration Sleep Discharge planning. I spent 43 minutes for services, including doei-xd-pkxz encounter with the patient, discussion of the case, plan of care, and exam; and vozccsg-px-eqki activities, such as reviewing pertinent community health consultant documentation, recent therapy notes, laboratory and radiology studies, and discussion of case with care team including physician, nursing, bilingual patient support caseworker, and therapists. More than 50 % of time was spent on patient/family counseling or coordination of care. Patient was personally seen by me, Dr. Bennett, on the day of encounter, within 24 hours of rehab admission, reviewed the history and the relevant portions of the chart, including current orders, allied health and community health consultant notes, labs/imaging and performed garcia elements of exam and I formulatedthe plan of care and facilitated the medical decision making. I completed a substantive portion of this encounter, the medical decision making portion of this note in its entirety, including Allied health note review, nursing note review, community health consultant note review, discussion with nursing and case management, and more than 50% of my time was spent on counseling and coordination of care, time spent 45 minutes Documented By: Antonia Grier APRN 06/22/24 1 500 Signed By: 06/23/24 1114 06/25/24 1519 06/24/24 1352 [facility]11-04-2024 Progress note Author Fidel Bennett [facility] Note Date/Time June 24, 2024 1 :59pm [facility] [address] [place] [address] Physiatry(Rehab) Progress Note Signed Patient: Taurus Garcia MR#: [id number] : 1945 Acct:[id number] Age/Sex: 78 / M Adm Date: 4 Loc: Room: [address] [place] [address] Type: ADM IN Attending Dr: Silvestre Grover [...] mg 06/22/24 14:58 Bisacodyl 10 Mg Supp.Rect TX 06/22/25 14:57 DAILY PRN Constipation Docusate Sodium 100 mg 06/22/24 14:58 Docusate 100 Mg Capsule PO 06/22/25 14:57 BID PRN Constipation Docusate Sodium 283 mg 06/22/24 14:58 Docusate Enema 283 Mg/5 Ml Enema TX 06/22/25 14:57 DAILY PRN Constipation Fish Oil 1,000 mg 06/22/24 21:00 06/24/24 08:20 [place]-3/Fish Oil 1,000 Mg Capsule PO 06/22/25 20:59 [...] 20:59 40 mg BID DORI Administration Phenyleph/Shark Oil/[place] Butter 1 supp 06/22/24 14:57 Phenylephrine/[place] Butter 6.25 Mg/2211 Mg 1 Supp TX 06/22/25 14:56 BID PRN hemorrhoids Potassium Chloride 20 meq 06/22/24 14:57 Potassium Chloride Er 20 Meq Tab.Er.Prt PO 06/22/25 14:56 DAILY PRN Hypokalemia Potassium Chloride 10 meq 06/26/24 09:00 Potassium Chloride Er 10 Meq Capsule.Er PO 06/26/25 08:59 DAILY DORI Prednisone 15 mg 06/24/24 09:00 06/24/24 08:20 Prednisone 5 Mg Tablet PO 06/24/25 08:59 15 mg DAILY DORI Administration Pyridostigmine [place] 60 mg 06/22/24 18:00 06/24/24 08:20 Pyridostigmine [place] 60 Mg Tablet PO 06/22/25 17:59 60 [...] equipment to enhance the patient's a functional jewish Ensure adequate nutrition and hydration Sleep Discharge planning. Patient was personally seen by me, Dr. Bennett, on the day of encounter, reviewed the history and the relevant portions of the chart, including current orders, allied health and community health consultant notes, labs/imaging and performed garcia elements of exam and I formulated the plan of care and facilitated the medical decision making. I completed a substantive portion of this encounter, the medical decision makingportion of this note in its entirety, including Allied health note review, nursing note review, community health consultant note review, discussion with nursing and case management, and more than 50% of my time was spent on counseling and coordination of care, time spent 25 minutes Documented By: Fidel Bennett MD 1354 Signed By: <Electronically signed by Fidel Bennett MD> 06/24/24 0296 [facility] Work Phone: 1(867) 536-353911-04-2024 [place] [address] Physiatry(Rehab) Progress Note Signed Patient: Taurus Garcia MR#: [id number] : 1945 Acct:[id number] Age/Sex: 78 / M Adm Date: 4 Loc: Room: [address] [place] [address] Type: ADM IN Attending Dr: Silvestre Grover [...] days. No consideration for IVIG at this community health. Pulmonary services consulted and assisted with CPAP [...] mg 06/22/24 14:58 Bisacodyl 10 Mg Supp.Rect TX 06/22/25 14:57 DAILY PRN Constipation Docusate Sodium 100 mg 06/22/24 14:58 Docusate 100 Mg Capsule PO 06/22/25 14:57 BID PRN Constipation Docusate Sodium 283 mg 06/22/24 14:58 Docusate Enema 283 Mg/5 Ml Enema TX 06/22/25 14:57 DAILY PRN Constipation Fish Oil 1,000 mg 06/22/24 21:00 06/24/24 08:20 [place]-3/Fish Oil 1,000 Mg Capsule PO 06/22/25 20:59 [...] 20:59 40 mg BID DORI Administration Phenyleph/Shark Oil/[place] Butter 1 supp 06/22/24 14:57 Phenylephrine/[place] Butter 6.25 Mg/2211 Mg 1 Supp TX 06/22/25 14:56 BID PRN hemorrhoids Potassium Chloride 20 meq 06/22/24 14:57 Potassium Chloride Er 20 Meq Tab.Er.Prt PO 06/22/25 14:56 DAILY PRN Hypokalemia Potassium Chloride 10 meq 06/26/24 09:00 Potassium Chloride Er 10 Meq Capsule.Er PO 06/26/25 08:59 DAILY DORI Prednisone 15 mg 06/24/24 09:00 06/24/24 08:20 Prednisone 5 Mg Tablet PO 06/24/25 08:59 15 mg DAILY DORI Administration Pyridostigmine [place] 60 mg 06/22/24 18:00 06/24/24 08:20 Pyridostigmine [place] 60 Mg Tablet PO 06/22/25 17:59 60 [...] equipment to enhance the patient's a functional jewish Ensure adequate nutrition and hydration Sleep Discharge planning. Patient was personally seen by me, Dr. Bennett, on the day of encounter, reviewed the history and the relevant portions of the chart, including current orders, allied health and community health consultant notes, labs/imaging and performed garcia elements of exam and I formulated the plan of care and facilitated the medical decision making. I completed a substantive portion of this encounter, the medical decision makingportion of this note in its entirety, including Allied health note review, nursing note review, community health consultant note review,discussion with nursing and case management, and more than 50% of my time was spent on counseling and coordination of care, time spent 25 minutes Documented By: Fidel Bennett MD 1352 Signed By: 06/24/24 1359 [facility]11-03-2024 Consult note Author Meera Vargas [facility] Note Date/Time June 23, 2024 5 :21pm [facility] [address] [place] [address] Hospitalist Consult Note Signed Patient: Taurus Garcia MR#: [id number] : 1945 Acct:[id number] Age/Sex: 78 / M Adm Date: 4 Loc: Room: 4O9057-2 Type: ADM IN Attending Dr: Silvestre Grover MD Copies to: MD Silvestre Gonsalves II, MD Kristopher L Lindbloom, DO Meera Vargas, ZACH~ HPI DATE OF CONSULTATION: 06/23/24 REQUESTING PROVIDER: [...] negative unless noted below or in HPI [facility] Medical History (Updated 06/23/24 @ 16:23 by [...] mg PO DAILY 12/27/17 [History Confirmed 06/22/24] fhhqdnxe-qpb-dszyq acid 0.4 mg-lycopene 300 mcg-lutein 250 mcg [...] rectal suppository (Preparation H(phenyleph,cocoa buttr)) 1 supp TX BID PRN hemorrhoids #0 ea 06/22/24 [Rx [...] mg 06/22/24 14:58 Bisacodyl 10 Mg Supp.Rect TX 06/22/25 14:57 DAILY PRN Constipation Docusate Sodium 100 mg 06/22/24 14:58 Docusate 100 Mg Capsule PO 06/22/25 14:57 BID PRN Constipation Docusate Sodium 283 mg 06/22/24 14:58 Docusate Enema 283 Mg/5 Ml Enema TX 06/22/25 14:57 DAILY PRN Constipation Fish Oil 1,000 mg 06/22/24 21:00 06/23/24 09:15 [place]-3/Fish Oil 1,000 Mg Capsule PO 06/22/25 20:59 [...] 20:59 40 mg BID DORI Administration Phenyleph/Shark Oil/[place] Butter 1 supp 06/22/24 14:57 Phenylephrine/[place] Butter 6.25 Mg/2211 Mg 1 Supp TX 06/22/25 14:56 BID PRN hemorrhoids Potassium Chloride [...] Tablet PO 06/24/25 08:59 DAILY DORI Pyridostigmine [place] 60 mg 06/22/24 18:00 06/23/24 13:19 Pyridostigmine [place] 60 Mg Tablet PO 06/22/25 17:59 60 [...] % (Auto) 80.3, Lymph % (Auto) 10.7, [place] % (Auto) 8.7, Eos % (Auto) 0.1, Baso % (Auto) 0.2, Nucleat RBC Rel Count 0.1, Neut # (Auto) 9.1 H, Lymph # (Auto) 1.2, [place] # (Auto) 1.0 H, Eos # (Auto) [...] signed by Mateo Horne DO> 06/23/24 1721 [facility] Work Phone: 1(225) 447-689811-03-2024 [place] [address] Hospitalist Consult Note Signed Patient: Taurus Garcia MR#: [id number] : 1945 Acct:[id number] Age/Sex: 78 / M Adm Date: 4 Loc: Room: [address] [place] [address] Type: ADM IN Attending Dr: Silvestre Grover MD Copies to: MD Silvestre Gonsalves II, MD Kristopher L Lindbloom, DO Meera Vargas, ZACH~ HPI DATE OF CONSULTATION: 06/23/24 REQUESTING PROVIDER: [...] negative unless noted below or in HPI [facility] Medical History (Updated 06/23/24 @ 16:23 by [...] mg PO DAILY 12/27/17 [History Confirmed 06/22/24] vucwdzoc-zoa-xfhpi acid 0.4 mg-lycopene 300 mcg-lutein 250 mcg [...] % rectal suppository (Preparation H(phenyleph,cocoa buttr))1 supp TX BID PRN hemorrhoids #0 ea 06/22/24 [Rx [...] mg 06/22/24 14:58 Bisacodyl 10 Mg Supp.Rect TX 06/22/25 14:57 DAILY PRN Constipation Docusate Sodium 100 mg 06/22/24 14:58 Docusate 100 Mg Capsule PO 06/22/25 14:57 BID PRN Constipation Docusate Sodium 283 mg 06/22/24 14:58 Docusate Enema 283 Mg/5 Ml Enema TX 06/22/25 14:57 DAILY PRN Constipation Fish Oil 1,000 mg 06/22/24 21:00 06/23/24 09:15 [place]-3/Fish Oil 1,000 Mg Capsule PO 06/22/25 20:59 [...] 20:59 40 mg BID DORI Administration Phenyleph/Shark Oil/[place] Butter 1 supp 06/22/24 14:57 Phenylephrine/[place] Butter 6.25 Mg/2211 Mg 1 Supp TX 06/22/25 14:56 BID PRN hemorrhoids Potassium Chloride [...] Tablet PO 06/24/25 08:59 DAILY DORI Pyridostigmine [place] 60 mg 06/22/24 18:00 06/23/24 13:19 Pyridostigmine [place] 60 Mg Tablet PO 06/22/25 17:59 60 [...] % (Auto) 80.3, Lymph % (Auto) 10.7, Walton % (Auto) 8.7, Eos % (Auto) 0.1, Baso % (Auto) 0.2, Nucleat RBC Rel Count 0.1, Neut # (Auto) 9.1 H, Lymph # (Auto) 1.2, Walton # (Auto) 1.0 H, Eos # (Auto) [...] 1451 Signed By: 06/23/24 1624 06/23/24 1721 [facility]11-01-2024 Consult note Author Fidel Bennett [facility] June 21, 2024 2:55pm Note Date/Time June 21, 2024 1 2:47pm [facility] [address] [place] [address] Physiatry (Rehab) Consult Note Signed Patient: Taurus Garcia MR#: [id number] : 1945 Acct:[id number] Age/Sex: 78 / M Adm Date: 4 Loc: 3T Room: 7P1538-2 Type: ADM IN Attending Dr: Mateo Horne [...] negative unless noted below or in HPI [facility] Medical History (Updated 06/19/24 @ 18:52 by [...] Problem List clean-up per request of Phys. VARGAS Cmte Surgical History (Updated 06/19/24 @ 14:33 [...] mg PO DAILY 12/27/17 [History Confirmed 06/19/24] opwgqjjc-ulb-pmikl acid 0.4 mg-lycopene 300 mcg-lutein 250 mcg [...] % (Auto) 81.8 Lymph % (Auto) 8.9 Walton % (Auto) 9.1 Eos % (Auto) 0.0 Baso % (Auto) 0.2 Nucleat RBC Rel Count 0.1 Neut # (Auto) 9.6 H Lymph # (Auto) 1.0 Walton # (Auto) 1.1 H Eos # (Auto) [...] chart, including current orders, allied health and community health consultant notes, labs/imaging and performed garcia elements of exam and I formulated the plan of care and facilitated the medical decision making. I completed a substantive portion of this encounter, the medical decision makingportion of this note in its entirety, including Allied health note review, nursing note review, community health consultant note review, discussion with nursing and case management, and more than 50% of my time was spent on counseling and coordination of care, time spent 60 minutes Documented By: Fidel Bennett MD [id number] Signed By: <Electronically signed by Fidel Bennett MD> 06/21/24 4283 [facility] Work Phone: 1(501) 863-218311-01-2024 Progress note Author Jamel Packer [facility] June 21, 2024 2:12pm Note Date/Time June 21, 2024 2 :12pm [facility] [address] [place] [address] Neurology Progress Note Signed Patient: Taurus Garcia MR#: [id number] : 1945 Acct:[id number] Age/Sex: 78 / M Adm Date: 4 Loc: 3T Room: [address] [place] [address] Type: ADM IN Attending Dr: Mateo Horne [...] rehabilitation whenever Documented By: Jamel Packer DO 06/21/24 1410 Signed By: <Electronically signed by Jamel Packer DO> 06/21/24 1412 [facility] Work Phone: 1(797) 199-119011-01-2024 Progress note Author Mateo Horne [facility] June 21, 2024 2:09pm Note Date/Time June 21, 2024 2 :03pm [facility] [address] [place] [address] Hospitalist Progress Note Signed Patient: Taurus Garcia MR#: [id number] : 1945 Acct:[id number] Age/Sex: 78 / M Adm Date: 4 Loc: 3T Room: [address] [place] [address] Type: ADM IN Attending Dr: Mateo Horne [...] 06/21/24 11:29 06/21/24 11:29 06/19/24 23:54 Narrative: GEN: Awake, alert, oriented [...] 20:59 40 mg BID DORI Administration Phenyleph/Shark Oil/[place] Butter 1 supp 06/19/24 21:00 Phenylephrine/[place] Butter 6.25 Mg/2211 Mg 1 Supp TX 06/19/25 20:59 BID PRN hemorrhoids Potassium Chloride [...] 09:01 60 mg DAILY DORI Administration Pyridostigmine [place] 90 mg 06/19/24 18:00 06/21/24 08:15 Pyridostigmine [place] 60 Mg Tablet PO 06/19/25 17:59 90 [...] elevated blood pressure to be problematic and client services representative of advancement of his chronic disease [...] starting tomorrow. Documented By: Mateo Horne DO 1357 Signed By: <Electronically signed by Mateo Horne DO> 06/21/24 9215 [facility] Work Phone: 1(264) 855-250311-01-2024 Progress note Author Abi Biswas [facility] June 21, 2024 10:32am Note Date/Time June 21, 2024 1 0:32am [facility] [address] [place] [address] Pulmonology Progress Note Signed Patient: Taurus Garcia MR#: [id number] : 1945 Acct:[id number] Age/Sex: 78 / M Adm Date: 4 Loc: Room: [address] [place] [address] Type: ADM IN Attending Dr: Mateo Horne [...] with questions Documented By: Abi Biswas MD 1029 Signed By: <Electronically signed by Abi Biswas MD> 06/21/241031 [facility] Work Phone: 1([phone]) 934-474510-31-2024 Progress note Author Jamel Packer [facility] June 20, 2024 2:46pm Note Date/Time June 20, 2024 2 :46pm [facility] [address] [place] [address] Neurology Progress Note Signed Patient: Taurus Garcia MR#: [id number] : 1945 Acct:[id number] Age/Sex: 78 / M Adm Date: 4 Loc: Room: [address] [place] [address] Type: ADM IN Attending Dr: Mateo Horne [...] signed by Jamel Packer DO> 06/20/24 1446 [facility] Work Phone: 1(545) 104-598010-31-2024 Progress note Author Abi Biswas [facility] June 20, 2024 2:38pm Note Date/Time June 20, 2024 2 :34pm [facility] [address] [place] [address] Pulmonology Progress Note Signed Patient: Taurus Garcia MR#: [id number] : 1945 Acct:[id number] Age/Sex: 78 / M Adm Date: 4 Loc: Room: [address] [place] [address] Type: ADM IN Attending Dr: Mateo Horne [...] signed by Abi Biswas MD> 06/20/24 1438 [facility] Work Phone: 1([phone] 364-526710-31-2024 Progress note Author Mateo Horne [facility] June 20, 2024 9:47am Note Date/Time June 20, 2024 9 :47am [facility] [address] [place] [address] Hospitalist Progress Note Signed Patient: Taurus Garcia MR#: [id number] : 1945 Acct:[id number] Age/Sex: 78 / M Adm Date: 4 Loc: Room: [address] [place] [address] Type: ADM IN Attending Dr: Mateo Horne [...] mg 06/19/24 14:21 Bisacodyl 10 Mg Supp.Rect TX 06/19/25 14:20 DAILY PRN Constipation Bisacodyl 10 mg 06/19/24 14:21 Bisacodyl 5 Mg Tablet. PO 06/19/25 14:20 DAILY PRN Constipation Docusate [...] 06/19/24 21:00 06/20/24 09:22 Pantoprazole 40 Mg Tablet. PO 06/19/25 20:59 40 mg BID DORI Administration Phenyleph/Shark Oil/[place] Butter 1 supp 06/19/24 21:00 Phenylephrine/[place] Butter 6.25 Mg/2211 Mg 1 Supp TX 06/19/25 20:59 BID PRN hemorrhoids Polyethylene Glycol [...] 14:19 60 mg DAILY DORI Administration Pyridostigmine [place] 90 mg 06/19/24 18:00 06/20/24 09:21 Pyridostigmine [place] 60 Mg Tablet PO 06/19/25 17:59 90 [...] elevated blood pressure to be problematic and client services representative of advancement of his chronic disease [...] and recommended that he go to the [address] [place] [address] inpatient rotation unit. Documented By: Mateo Horne DO 0941 Signed By: <Electronically signed by Mateo Horne DO> 06/20/24 0966 [facility] Work Phone: 1([phone]) 836-134810-30-2024 Consult note Author Abi Biswas [facility] June 19, 2024 6:54pm Note Date/Time June 19, 2024 6 :54pm [facility] [address] [place] [address] Pulmonology Consult Note Signed Patient: Taurus Garcia MR#: [id number] : 1945 Acct:[id number] Age/Sex: 78 / M Adm Date: 4 Loc: Room: [address] [place] [address] Type: ADM IN Attending Dr: Mateo Horne [...] walks with a walker. He came to [facility] ED and was admitted to the ICU. [...] of Systems Review of systems: see [facility] Medical History (Updated 06/19/24 @ 18:52 by [...] mg PO DAILY 12/27/17 [History Confirmed 06/19/24] enykkuzp-rwp-ukyrm acid 0.4 mg-lycopene 300 mcg-lutein 250 mcg [...] will follow Documented By: Abi Biswas MD 183 Signed By: <Electronically signed by Abi Biswas MD> 06/19/24 185 [facility] Work Phone: 1(139) 916-602510-30-2024 Consult note Author Jamel Packer [facility] June 19, 2024 3:00pm Note Date/Time June 19, 2024 3 :03pm [facility] [address] [place] [address] Neurology Consult Note Signed Patient: Taurus Garcia MR#: [id number] : 1945 Acct:[id number] Age/Sex: 78 / M Adm Date: 4 Loc: Room: [address] [place] [address] Type: ADM IN Attending Dr: Mateo Horne DO Copies to: DO Komal Bajwa II, MD Kristopher L Lindbloom, ~ HPI Consult Date: 06/19/24 Control Operator Flow Coat: Jamel Packer DO [facility] Medical History (Updated 06/19/24 @ 14:59 by [...] mg PO DAILY 12/27/17 [History Confirmed 06/19/24] dindzzgv-bag-shpyo acid 0.4 mg-lycopene 300 mcg-lutein 250 mcg [...] SUGGEST PNEUMONIA. Impression dictated by: Silvestre Diallo Jr. DRaulORaul06/19/2024 10:01 AM Dictation Location: [place] [address] Therapy Recommendations Therapy Recommendations: ST Recommendations ST [...] signed by Jamel Packer DO> 06/19/24 1500 [facility] Work Phone: 1([phone]) 762-207010-30-2024 History and physical note Author Mateo Horne [facility] June 19, 2024 2:37pm Note Date/Time June 19, 2024 2 :37pm [facility] [address] [place] [address] Hospitalist H&P Signed Patient: Taurus Garcia MR#: [id number] : 1945 Acct:[id number] Age/Sex: 78 / M Adm Date: 4 Loc: Room: [address] [place] [address] Type: ADM IN Attending Dr: Mateo Horne [...] Year ago, inSeptember, he presented to the [facility] emergency room and had to be intubated. [...] except as mentioned elsewhere in the documentation. [facility] Medical History (Updated 06/19/24 @ 14:33 by [...] mg PO DAILY 12/27/17 [History Confirmed 06/19/24] appkxbfs-fkr-mzfvd acid 0.4 mg-lycopene 300 mcg-lutein 250 mcg [...] % (Auto) 27.5 % (.) 06/19/24 09:49 Walton % (Auto) 11.3 % (.) 06/19/24 09:49 Eos % (Auto) 1.2 % (.) 06/19/24 09:49 Baso % (Auto) 1.0 % (.) 06/19/24 09:49 Nucleat RBC Rel Count 0.1 /100 WBC (0-0.5) 06/19/24 09:49 Neut # (Auto) 5.1 x10E3/uL (1.8-7.7) 06/19/24 09:49 Lymph # (Auto) 2.4 x10E3/uL (1.00-4.8) 06/19/24 09:49 Walton # (Auto) 1.0 x10E3/uL (0.0-0.8) H 06/19/24 [...] signed by Mateo Horne DO> 06/19/24 1437 [facility] Work Phone: 1(770) 659-953010-30-2024 Evaluation note* Diagnosis Onset Date Resolution Status [...] Generalized weakness deleted Carlos barajas 2023 2:40pm [facility] Work Phone: [phone] 800-460610-30-2024 Evaluation note* Diagnosis Onset Date Resolution Status [...] Generalized weakness deleted Carlos barajas 2023 2:40pm MATT (acute kidney injury) acute July 09, 2024 5:43pm Change in vision acute July 09, 2024 5:43pm Generalized weakness acute Carlos barajas 2023 5:43pm [facility] Work Phone: [phone] 718-276710-30-2024 Evaluation note* Diagnosis Onset Date Resolution Status [...] and activities of daily living inactive Novem elliot 2023 2:40pm Generalized weakness deleted Carlos barajas 2023 2:40pm Myasthenia gravis acute Novembe r 2023 5:43pm MATT (acute kidney injury) resolved July 09, 2024 5:43pm Change in vision deleted July 09, 2024 5:43pm Generalized weakness deleted Carlos barajas 2023 5:43pm Chronic anticoagulation acute D ecember 2023 4:47pm Chronic back pain acute Decembe r 2023 4:47pm Counseling regarding advance directives and goals of care acute Dec emb2023 4:47pm Generalized weakness acute Dece mb2023 4:47pm GERD (gastroesophageal reflu x disease) acute [...] September 11, 2024 10:57am HTN (hypertension) acute Augua y 2024 10:57am Morbid obesity with BMI of 45.0-49.9, adult acute September 11, 025 10:57am Myasthenia gravis acute September 11, 2024 10:57am Myasthenia gravis in crisis acute September 11, 2024 10:57am JAMISON on CPAP acute September 11, 2024 10:57am [facility] Work Phone: 1([phone] 459-998110-24-2024 History of Present illness Narrative* Real Og, DPM - 06/13/2024 2:00 PM EDT Patient: Taurus [...] 2019 Acute Hypoxic Resp. 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 Cervical radiculopathy at C8 05/2017 CTS (carpal tunnel syndrome) 05/2017 Bilateral Essential hypertension, benign ([facility]) Facial droop History of echocardiogram 12/15/2018 EF 60-65%, LVH Hypertension ([facility]) Impaired glucose tolerance test Oral Lumbosacral spondylosis without myelopathy LVH (left ventricular hypertrophy) 12/15/2018 ECHO EF 60-65% Macular edema 2009 /pucker Muscle cramp Myasthenia gravis ([facility]) 12/27/2017 / dyspnea Myasthenic crisis ([facility]) 05/10/2023 Obesity Obstructive sleep apnea (adult) (pediatric) Pulmonary emboli ([facility]) 11/17/2023 Pulmonary embolism ([facility]) 11/2018 Pure hypercholesterolemia ([facility]) Shortness of breath Superficial thrombophlebitis 12/16/2018 Rt Thigh Tremor Troponin I above reference range 11/17/2023 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 UTI, [...] FOOD, Disp: 180 tablet, Rfl: 3 HYDROcodone-acetaminophen (Gary) 5-325 MG tablet, Take 1 tablet by [...] Disp: 100 tablet, Rfl: 3 nystatin (Mycostatin) 146994 UNIT/GM powder, APPLY TO THE AFFECTED AREA(S) [...] min Stress: No Stress Concern Present (03/17/2023) [employer] [place] [employer] - Occupational Stress Questionnaire Feeling of Stress : Only a little Social Connections: Moderately Isolated (03/17/2023) Social Connection and Isolation Panel [NHANES] Frequency of Communication with Friends and Family: More than three times a week Frequency of Social Gatherings with Friends and Family: Once a week Attends Druze Services: Never Active Member of Clubs or [...] condition. Real Og DPM documented in this encounterJohn J. Pershing VA Medical [id number] History of Present illness Narrative* Stanley Saunders [...] HYDROcodone-acetaminophen 5-325 MG tablet; Commonly known as: Gary lisinopril 20 MG tablet; TAKE 1 TABLET BY MOUTH ONCE DAILY loratadine 10 MG tablet; Commonly known as: Claritin nebivolol 10 MG tablet; Commonly known as: Bystolic; Take 1 tablet (10 mg) by mouth Daily nystatin 987566 UNIT/GM powder; Commonly known as: Mycostatin omega-3 [...] 11/17/2023 Pulmonary embolism (CMS/HCC) 11/2018 Pure hypercholesterolemia ([facility]) Shortness of breath Superficial thrombophlebitis 12/16/2018 Rt [...] wrist extensors , wrist flexor , and sanitation inspector strength 5/5. LUE strength deltoid , biceps , triceps , wrist extensors , wrist flexor , and sanitation inspector strength 5/5. RLE strength iliopsoas, quadriceps, tibialis [...] reflex 1+. LLE Knee reflex 1+. Coordination: Oiykzo-hz-utds testing normal. Rapid alternating movements are normal. Gait: Normal. Review and summary of old records: I reviewed documentation from the patient's emergency department visit at [facility] on 02/12/24. The patient presented with mild [...] [facility]: Unremarkable EMG of the bilateral upper extremities on 06/19/17: Bilateral median neuropathy such as in carpal tunnel syndrome which is mild in degree electrically. Also a remote right C8 radiculopathy. 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 MRI of the brain in 02/2018 was unremarkable. He denies ptosis, double vision, difficulty speaking, difficulty swallowing, orincreased shortness of breath since the prior neurology appointment. The patient was evaluated at [facility] ED on 02/12/24 due to increased generalized [...] index (BMI) of45.0 to 49.9 in adult ([facility]) The patient is obese. PLAN: - [...] new or worsening symptoms. documented in this encounterJohn J. Pershing VA Medical [id number] History of Present illness Narrative* Komal Schaffer MD - 10/05/2023 1:15 PM EST Subjective : Chief Complaint: aTurus Garcia is an 78 y.o. male here [...] by mouth in the morning. nystatin (Mycostatin) 675644 UNIT/GM powder APPLY TO THE AFFECTED AREA(S) [...] Yes Cognitive Screening Three Word Registration: Banana, Saks, Chair Clock Drawing: Normal Clock - 2 Three Word Recall: All 3 words correct - 3 Total Score (0-5 Points): 5 Pain Assessment Pain Score: 4 Advance Care Planning Do you have a living will?: Yes Do you have a medical power of rn interventional?: Yes Who is your medical power of rn interventional?: --gabrielle Objective : BP 134/82 Pulse 58 [...] a living will and durable power of rn interventional for healthcare. We discussed telling garcia people [...] gravis without (acute) exacerbation (G70.00) Atherosclerosis of [place] artery of both lower extremities with intermittent claudication (CMS/HCC) Morbid (severe) obesity due to excess calories (E66.01) Body mass index [BMI] 45.0-49.9, adult (Z68.42) Follow up in about 4 months (around 02/03/2024) for Routine F/U. No orders of the defined types were placed in this encounter. Electronically signed by Komal Schaffer MD on October 05, 2023 documented in this [facility]02-05-2024 Telephone encounter Note* Telephone Encounter - Komal Schaffer MD - 09/25/2023 10:15 AM EST Lab order. [facility] [id number] Miscellaneous Notes* Telephone Encounter - Komal Schaffer MD - 09/25/2023 10:15 AM EST Lab order. documented in this [facility]01-31-2024 History of Present illness Narrative* Baltazar Hoover, DO - 09/20/2023 11:40 AM EST Subjective [...] mouth once daily., Disp: , Rfl: omega 3-lbz-mgv-fish oil 360 mg-108 mg- 180 mg-1,200 mg [...] name below, I, Connie Hannon LPN , Scrib[place] attest that this documentation [...] of 45.0-49.9, adult (CMS/HCC) documented in this [facility] Work Phone: 1(268) 933-884301-31-2024 Instructions* Patient Instructions* Connie Morejon LPN - [...] Off amio,stop amio testing documented in this [facility] Work Phone: 1(776) 609-916710-21-2023 Discharge summary Author Silvestre Grover [facility] June 10, 2023 8:11am Note Date/Time June 10, 2023 8 :11am [facility] [address] [place] [address] Discharge Summary Signed Patient: Taurus Garcia MR#: [id number] : 1945 Acct:[id number] Age/Sex: 77 / M Adm Date: 3 Loc: Room: [address] [place] [address]: Silvestre Grover MD Copies to: [...] due to MG crisis. Patient presented to [facility] on 05/11/2023 with complaints of worseninggeneralized weakness over the course of several days. He was found to be mildlyhypoxic. Also complaining of urinary symptoms. Initially admitted to [facility] for observation however developed worsening respiratory status with increased secretions and inability to protect own airway and was subsequently intubated [facility]. Patient received a [...] Plan Discharge Plan Patient Disposition: Home Health [facility] Activity: Ambulate as Tolerated Diet: Regular Additional [...] home prior. Your [facility] Health agency [facility] ( ). They will contact you [...] call and check back for vaccine availability ([phone]). Prescriptions: New nystatin [Nystop] 100,000 unit/gram Powder [...] <Electronically signed by Silvestre Grover MD> 06/10/23810 [facility] Work Phone: 1(244) 484-798510-19-2023 Progress note Author Jarret Garza [facility] June 08, 2023 7:01am Note Date/Time June 07, 2023 5 :18pm [facility] [address] [place] [address] Hospitalist Progress Note Signed Patient: Taurus Garcia MR#: [id number] : 1945 Acct:[id number] Age/Sex: 77 / M Adm Date: 3 Loc: Room: [address] [place] [address] Type: ADM IN Attending Dr: Silvestre Grover [...] mg 05/21/23 14:25 Bisacodyl 10 Mg Supp.Rect TX 05/20/24 14:24 DAILY PRN Constipation Docusate Sodium 100 mg 05/21/23 14:25 Docusate 100 Mg Capsule PO 05/20/24 14:24 BID PRN Constipation Docusate Sodium 283 mg 05/21/23 14:25 Docusate Enema 283 Mg/5 Ml Enema TX 05/20/24 14:24 DAILY PRN Constipation Fish Oil 1,000 mg 05/21/23 21:00 06/07/23 09:38 [place]-3/Fish Oil 1,000 Mg Capsule PO 05/20/24 20:59 [...] 05/31/24 08:59 Not Given DAILY DORI Pyridostigmine [place] 60 mg 05/21/23 18:00 06/07/23 17:02 Pyridostigmine [place] 60 Mg Tablet PO 09/30/24 17:59 60 mg QID DORI Administration Saccharomyces [...] signed by Jarret Garza MD> 06/08/23 0701 [facility] Work Phone: 1(310) 867-168010-18-2023 Progress note Author Silvestre Grover [facility] June 07, 2023 3:10pm Note Date/Time June 07, 2023 1 :12pm [facility] [address] [place] [address] Physiatry(Rehab) Progress Note Signed Patient: Taurus Garcia MR#: [id number] : 1945 Acct:[id number] Age/Sex: 77 / M Adm Date: 3 Loc: Room: [address] [place] [address] Type: ADM IN Attending Dr: Silvestre Grover [...] due to MG crisis. Patient presented to [facility] on 05/11/2023 with complaints of worseninggeneralized weakness over the course of several days. He was found to be mildlyhypoxic. Also complaining of urinary symptoms. Initially admitted to [facility] for observation however developed worsening respiratory status with increased secretions and inability to protect own airway and was subsequently intubated [facility]. Patient received a [...] noted below or in HPI Exam <Antonia ZACH Grier - Last Filed: 06/07/23 13:25> Physical Exam [...] mg 05/21/23 14:25 Bisacodyl 10 Mg Supp.Rect TX 05/20/24 14:24 DAILY PRN Constipation Docusate Sodium 100 mg 05/21/23 14:25 Docusate 100 Mg Capsule PO 05/20/24 14:24 BID PRN Constipation Docusate Sodium 283 mg 05/21/23 14:25 Docusate Enema 283 Mg/5 Ml Enema TX 05/20/24 14:24 DAILY PRN Constipation Fish Oil 1,000 mg 05/21/23 21:00 06/07/23 09:38 [place]-3/Fish Oil 1,000 Mg Capsule PO 05/20/24 20:59 [...] 05/31/24 08:59 Not Given DAILY DORI Pyridostigmine [place] 60 mg 05/21/23 18:00 06/07/23 09:39 Pyridostigmine [place] 60 Mg Tablet PO 05/20/24 17:59 60 [...] tab DAILY DORI Administration Assessment/Plan <Antonia Grier, PATIENT FINANCIAL COUNSELOR - Last Filed: 06/07/23 13:25> Assessment/Plan (1) [...] secondary to myasthenic crisis. Initially admitted to [facility] later transferred to [facility] for neurology services. Had to be [...] equipment to enhance the patient's a functional jewish Ensure adequate nutrition and hydration Sleep: No concerns. Pain: Continue current regimen Discharge planning: Hopefully home with his end of week/early next week. I spent greater than 15 minutes for services, including wyvb-ft-bsmg encounter with the patient, discussion of the case, plan of care, and exam; and nbxjmil-gg-hdlx activities, such as reviewing pertinent community health consultant documentation, recent therapy notes, laboratory and radiology studies, and discussion of case with care team including physician, nursing, bilingual patient support caseworker, and therapists. More than 50 % of [...] Allied health note review, nursing note review, community health consultant note review, discussion with nursing and case management, and more than 50% of my time was spent on counseling and coordination of care, time spent 25 minutes Patient was personally seen by me, Dr. Grover, on the day of encounter, reviewed the history and the relevant portions of the chart, including current orders, allied health and community health consultant notes, labs/imaging and performed garcia elements of exam and I formulated the plan of care and facilitated the medical decision making. Documented By: Antonia Grier APRN 06/07/23 1 310 Signed By: <Electronically signed by ZACH Grier> 06/07/23 1325 <Electronically signed by Silvestre Grover MD> 06/07/23 8932 [facility] Work Phone: 1(338) 665-377010-17-2023 Progress note Author Silvestre Grover [facility] June 06, 2023 3:59pm Note Date/Time June 06, 2023 3 :59pm [facility] [address] [place] [address] Physiatry(Rehab) Progress Note Signed Patient: Taurus Garcia MR#: [id number] : 1945 Acct:[id number] Age/Sex: 77 / M Adm Date: 3 Loc: 5T Room: 9X3455-4 Type: ADM IN Attending Dr: Silvestre Grover MD Copies to: ~ Date of Service: 06/06/2023 Subjective Subjective Narrative: Mr. Garcia is a 77 year old male with past medical history of myasthenia gravis,hypertension, A-fib anticoagulated with Eliquis, PE, CKD, obstructive sleep apnea on BiPAP, who presents to acute inpatient rehab with functional impairments due to MG crisis. Patient presented to [facility] on 05/11/2023 with complaints of worseninggeneralized weakness over the course of several days. He was found to be mildlyhypoxic. Also complaining of urinary symptoms. Initially admitted to [facility] for observation however developed worsening respiratory status with increased secretions and inability to protect own airway and was subsequently int[facility]. Patient received a [...] mg 05/21/23 14:25 Bisacodyl 10 Mg Supp.Rect TX 05/20/24 14:24 DAILY PRN Constipation Docusate Sodium 100 mg 05/21/23 14:25 Docusate 100 Mg Capsule PO 05/20/24 14:24 BID PRN Constipation Docusate Sodium 283 mg 05/21/23 14:25 Docusate Enema 283 Mg/5 Ml Enema TX 05/20/24 14:24 DAILY PRN Constipation Fish Oil 1,000 mg 05/21/23 21:00 06/06/23 10:08 [place]-3/Fish Oil 1,000 Mg Capsule PO 05/20/24 20:59 [...] 05/31/24 08:59 Not Given DAILY DORI Pyridostigmine [place] 60 mg 05/21/23 18:00 06/06/23 14:39 Pyridostigmine [place] 60 Mg Tablet PO 05/20/24 17:59 60 [...] secondary to myasthenic crisis. Initially admitted to [facility] later transferred to [facility] for neurology services. Had to be [...] equipment to enhance the patient's a functional jewish Ensure adequate nutrition and hydration Sleep: No concerns. Pain: Continue current regimen Discharge planning: Hopefully home with his end of week/early next week. Plan: I completed a substantive portion of this encounter, the medical decision making portion of this note in its entirety, including Allied health note review, nursing note review, community health consultant note review, discussion with nursing and case management, and more than 50% of my time was spent on counseling and coordination of care, time spent 25 minutes Patient was personally seen by me, Dr. Grover, on the day of encounter, reviewed the history and the relevant portions of the chart, including current orders, allied health and community health consultant notes, labs/imaging and performed garcia elements of exam and I formulated the plan of care and facilitated the medical decision making. Documented By: Silvestre Grover MD 06/06/23 6851 Signed By: <Electronically signed by Silvestre Grover MD> 06/06/23 1559 [facility] Work Phone: 1(402) 627-558710-17-2023 Hospital Discharge instructionsAmbulatory Orders* Initiate Home Health [...] home prior. Your [facility] Health agency is [facility] ( ). They will contact you [...] call and check back for vaccine availability ([phone]).[facility] Work Phone: 1([phone]) 103-545610-17-2023 Progress note Author Silvestre Grover [facility] June 06, 2023 11:30am Note Date/Time June 05, 2023 1 :16pm [facility] [address] [place] [address] Physiatry(Rehab) Progress Note Signed Patient: Taurus Garcia MR#: [id number] : 1945 Acct:[id number] Age/Sex: 77 / M Adm Date: 3 Loc: 5T Room: 2R4203-7 Type: ADM IN Attending Dr: Silvestre Grover MD Copies to: ~ Date of Service: 06/05/2023 Subjective Subjective Narrative: Mr. Garcia is a 77 year old male with past medical history of myasthenia gravis,hypertension, A-fib anticoagulated with Eliquis, PE, CKD, obstructive sleep apnea on BiPAP, who presents to acute inpatient rehab with functional impairments due to MG crisis. Patient presented to [facility] on 05/11/2023 with complaints of worseninggeneralized weakness over the course of several days. He was found to be mildlyhypoxic. Also complaining of urinary symptoms. Initially admitted to [facility] for observation however developed worsening respiratory status with increased secretions and inability to protect own airway and was subsequently intubated [facility]. Patient received a [...] mg 05/21/23 14:25 Bisacodyl 10 Mg Supp.Rect TX 05/20/24 14:24 DAILY PRN Constipation Docusate Sodium 100 mg 05/21/23 14:25 Docusate 100 Mg Capsule PO 05/20/24 14:24 BID PRN Constipation Docusate Sodium 283 mg 05/21/23 14:25 Docusate Enema 283 Mg/5 Ml Enema TX 05/20/24 14:24 DAILY PRN Constipation Fish Oil 1,000 mg 05/21/23 21:00 06/05/23 08:04 [place]-3/Fish Oil 1,000 Mg Capsule PO 05/20/24 20:59 [...] 08:59 1 packet DAILY DORI Administration Pyridostigmine [place] 60 mg 05/21/23 18:00 06/05/23 08:03 Pyridostigmine [place] 60 Mg Tablet PO 05/20/24 17:59 60 [...] secondary to myasthenic crisis. Initially admitted to [facility] later transferred to [facility] for neurology services. Had to be [...] equipment to enhance the patient's a functional jewish Ensure adequate nutrition and hydration Sleep: No concerns. Pain: Continue current regimen Discharge planning: Hopefully home with his end of week/early next week. Plan: I completed a substantive portion of this encounter, the medical decision making portion of this note in its entirety, including Allied health note review, nursing note review, community health consultant note review, discussion with nursing and case management, and more than 50% of my time was spent on counseling and coordination of care, time spent 25 minutes Patient was personally seen by me, Dr. Grover, on the day of encounter, reviewed the history and the relevant portions of the chart, including current orders, allied health and community health consultant notes, labs/imaging and performed garcia elements of exam and I formulated the plan of care and facilitated the medical decision making. Documented By: Silvestre Grover MD 06/05/23 1316 Signed By: <Electronically signed by Silvestre Grover MD> 06/06/23 1130 [facility] Work Phone: 1(538) 520-409510-16-2023 Progress note Author Silvestre Grover [facility] June 05, 2023 11:41am Note Date/Time June 05, 2023 1 1:41am [facility] [address] [place] [address] Physiatry(Rehab) Progress Note Signed Patient: Taurus Garcia MR#: [id number] : 1945 Acct:[id number] Age/Sex: 77 / M Adm Date: 3 Loc: Room: 2B4079-6 Type: ADM IN Attending Dr: Silevstre Grover MD Copies to: ~ Date of Service: 06/02/2023 Subjective Subjective Narrative: Mr. Garcia is a 77 year old male with past medical history of myasthenia gravis,hypertension, A-fib anticoagulated with Eliquis, PE, CKD, obstructive sleep apnea on BiPAP, who presents to acute inpatient rehab with functional impairments due to MG crisis. Patient presented to [facility] on 05/11/2023 with complaints of worseninggeneralized weakness over the course of several days. He was found to be mildlyhypoxic. Also complaining of urinary symptoms. Initially admitted to [facility] for observation however developed worsening respiratory status with increased secretions and inability to protect own airway and was subsequently intubated [facility]. Patient received a [...] mg 05/21/23 14:25 Bisacodyl 10 Mg Supp.Rect TX 05/20/24 14:24 DAILY PRN Constipation Docusate Sodium 100 mg 05/21/23 14:25 Docusate 100 Mg Capsule PO 05/20/24 14:24 BID PRN Constipation Docusate Sodium 283 mg 05/21/23 14:25 Docusate Enema 283 Mg/5 Ml Enema TX 05/20/24 14:24 DAILY PRN Constipation Fish Oil 1,000 mg 05/21/23 21:00 06/05/23 08:04 [place]-3/Fish Oil 1,000 Mg Capsule PO 05/20/24 20:59 [...] 08:59 1 packet DAILY DORI Administration Pyridostigmine [place] 60 mg 05/21/23 18:00 06/05/23 08:03 Pyridostigmine [place] 60 Mg Tablet PO 05/20/24 17:59 60 [...] secondary to myasthenic crisis. Initially admitted to [facility] later transferred to [facility] for neurology services. Had to be [...] equipment to enhance the patient's a functional jewish Ensure adequate nutrition and hydration Sleep: No concerns. Pain: Continue current regimen Discharge planning: Hopefully home with his end of next week. Plan: I completed a substantive portion of this encounter, the medical decision making portion of this note in its entirety, including Allied health note review, nursing note review, community health consultant note review, discussion with nursing and case management, and more than 50% of my time was spent on counseling and coordination of care, time spent 25 minutes Patient was personally seen by me, Dr. Grover, on the day of encounter, reviewed the history and the relevant portions of the chart, including current orders, allied health and community health consultant notes, labs/imaging and performed garcia elements of exam and I formulated the plan of care and facilitated the medical decision making. Documented By: Silvestre Grover MD 06/05/23 1139 Signed By: <Electronically signed by Silvestre Grover MD> 06/05/23 1141 [facility] Work Phone: 1(946) 735-170010-14-2023 Progress note Author Fidel Bennett [facility] June 03, 2023 3:02pm Note Date/Time June 03, 2023 3 :02pm [facility] [address] [place] [address] Physiatry(Rehab) Progress Note Signed Patient: Taurus Garcia MR#: [id number] : 1945 Acct:[id number] Age/Sex: 77 / M Adm Date: 3 Loc: Room: 1K8355-4 Type: ADM IN Attending Dr: Silvestre Grover MD Copies to: ~ Date of Service: 06/03/2023 Subjective Subjective Narrative: Mr. Garcia is a 77 year old male with past medical history of myasthenia gravis,hypertension, A-fib anticoagulated with Eliquis, PE, CKD, obstructive sleep apnea on BiPAP, who presents to acute inpatient rehab with functional impairments due to MG crisis. Patient presented to [facility] on 05/11/2023 with complaints of worseninggeneralized weakness over the course of several days. He was found to be mildlyhypoxic. Also complaining of urinary symptoms. Initially admitted to [facility] for observation however developed worsening respiratory status with increased secretions and inability to protect own airway and was subsequently intubated [facility]. Patient received a [...] mg 05/21/23 14:25 Bisacodyl 10 Mg Supp.Rect TX 05/20/24 14:24 DAILY PRN Constipation Docusate Sodium 100 mg 05/21/23 14:25 Docusate 100 Mg Capsule PO 05/20/24 14:24 BID PRN Constipation Docusate Sodium 283 mg 05/21/23 14:25 Docusate Enema 283 Mg/5 Ml Enema TX 05/20/24 14:24 DAILY PRN Constipation Fish Oil 1,000 mg 05/21/23 21:00 06/03/23 09:45 [place]-3/Fish Oil 1,000 Mg Capsule PO 05/20/24 20:59 [...] 08:59 1 packet DAILY DORI Administration Pyridostigmine [place] 60 mg 05/21/23 18:00 06/03/23 14:48 Pyridostigmine [place] 60 Mg Tablet PO 05/20/24 17:59 60 [...] secondary to myasthenic crisis. Initially admitted to [facility] later transferred to [facility] for neurology services. Had to be [...] equipment to enhance the patient's a functional jewish Ensure adequate nutrition and hydration Sleep: No concerns. Pain: Continue current regimen Discharge planning: Hopefully home with his end of next week. Plan: I completed a substantive portion of this encounter, the medical decision making portion of this note in its entirety, including Allied health note review, nursing note review, community health consultant note review, discussion with nursing and case management, and more than 50% of my time was spent on counseling and coordination of care, time spent 25 minutes Patient was personally seen by me, Dr. Bennett, on the day of encounter, reviewed the history and the relevant portions of the chart, including current orders, allied health and community health consultant notes, labs/imaging and performed garcia elements of exam and I formulated the plan of care and facilitated the medical decision making. Documented By: Fidel Bennett MD 1501 Signed By: <Electronically signed by Fidel Bennett MD> 06/03/23 1503 [facility] Work Phone: 1(233) 913-606610-13-2023 Progress note Author Silvestre Grover [facility] June 02, 2023 10:48am Note Date/Time June 01, 2023 1 :12pm [facility] [address] [place] [address] Physiatry(Rehab) Progress Note Signed Patient: Taurus Garcia MR#: [id number] : 1945 Acct:[id number] Age/Sex: 77 / M Adm Date: 3 Loc: 5T Room: [address] [place] [address] Type: ADM IN Attending Dr: Silvestre Grover MD Copies to: ~ <Antonia Grier, PATIENT FINANCIAL COUNSELOR - Last Filed: 06/01/23 13:12> Date of Service: 06/01/2023 Subjective <Antonia Grier, PATIENT FINANCIAL COUNSELOR - Last Filed: 06/01/23 13:12> Subjective Narrative: Mr. Garcia is a 77 year old male with past medical history of myasthenia gravis,hypertension, A-fib anticoagulated with Eliquis, PE, CKD, obstructive sleep apnea on BiPAP, who presents to acute inpatient rehab with functional impairments due to MG crisis. Patient presented to [facility] on 05/11/2023 with complaints of worseninggeneralized weakness over the course of several days. He was found to be mildlyhypoxic. Also complaining of urinary symptoms. Initially admitted to [facility] for observation however developed worsening respiratory status with increased secretions and inability to protect own airway and was subsequently intubated [facility]. Patient received a [...] more active in therapy. This morning he [id number]+42+90 feet with a rolling walker with wheelchair [...] unless noted below or in HPI Exam <nAtonia Grier APRN - Last Filed: 06/01/23 13:12> [...] mg 05/21/23 14:25 Bisacodyl 10 Mg Supp.Rect TX 05/20/24 14:24 DAILY PRN Constipation Docusate Sodium 100 mg 05/21/23 14:25 Docusate 100 Mg Capsule PO 05/20/24 14:24 BID PRN Constipation Docusate Sodium 283 mg 05/21/23 14:25 Docusate Enema 283 Mg/5 Ml Enema TX 05/20/24 14:24 DAILY PRN Constipation Fish Oil 1,000 mg 05/21/23 21:00 06/01/23 10:05 [place]-3/Fish Oil 1,000 Mg Capsule PO 05/20/24 20:59 1,000 mg BID DORI Administration Furosemide 20 mg 05/22/23 09:00 06/01/23 10:05 Furosemide 20 Mg Tablet PO 05/21/24 08:59 20 mg DAILY DORI Administration Hydralazine HCl 50 mg 05/21/23 21:00 06/01/23 10:05 Hydralazine 50 Mg Tablet PO 05/20/24 20:59 50 mg BID DORI Administration Lactulose 30 gm 10/01/23 14:25 Lactulose 20 Gm/30 Ml Udc PO [...] 08:59 1 packet DAILY DORI Administration Pyridostigmine [place] 60 mg 05/21/23 18:00 06/01/23 10:05 Pyridostigmine [place] 60 Mg Tablet PO 05/20/24 17:59 60 [...] tab DAILY DORI Administration Assessment/Plan <Antonia Grier, PATIENT FINANCIAL COUNSELOR - Last Filed: 06/01/23 13:12> Assessment/Plan (1) [...] secondary to myasthenic crisis. Initially admitted to [facility] later transferred to [facility] for neurology services. Had to be [...] equipment to enhance the patient's a functional jewish Ensure adequate nutrition and hydration Sleep: No concerns. Pain: Continue current regimen Discharge planning: Hopefully home with his end of next week. I spent greater than 15 minutes for services, including nswb-dd-rgun encounter with the patient, discussion of the case, plan of care, and exam; and etbswcq-sz-vvip activities, such as reviewing pertinent community health consultant documentation, recent therapy notes, laboratory and radiology studies, and discussion of case with care team including physician, nursing, bilingual patient support caseworker, and therapists. More than 50 % of [...] chart, including current orders, allied health and community health consultant notes, labs/imaging and plan of care as above. Documented By: Antonia Grier APRN 06/01/23 1 304 Signed By: <Electronically signed by ZACH Grier> 06/01/23 1312 <Electronically signed by Silvestre Grover MD> 06/02/23 1041 [facility] Work Phone: 1(653) 471-476210-13-2023 Progress note Author Meera Javier [facility] June 02, 2023 8:21am Note Date/Time May 31, 2023 2 :26pm [facility] [address] [place] [address] Hospitalist Progress Note Signed Patient: Taurus Garcia MR#: [id number] : 1945 Acct:[id number] Age/Sex: 77 / M Adm Date: 3 Loc: Room: [address] [place] [address] Type: ADM IN Attending Dr: Silvestre Grover [...] mg 05/21/23 14:25 Bisacodyl 10 Mg Supp.Rect TX 05/20/24 14:24 DAILY PRN Constipation Docusate Sodium 100 mg 05/21/23 14:25 Docusate 100 Mg Capsule PO 05/20/24 14:24 BID PRN Constipation Docusate Sodium 283 mg 05/21/23 14:25 Docusate Enema 283 Mg/5 Ml Enema TX 05/20/24 14:24 DAILY PRN Constipation Fish Oil 1,000 mg 05/21/23 21:00 05/31/23 07:49 [place]-3/Fish Oil 1,000 Mg Capsule PO 05/20/24 20:59 [...] Packet PO 05/31/24 08:59 DAILY DORI Pyridostigmine [place] 60 mg 05/21/23 18:00 05/31/23 14:13 Pyridostigmine [place] 60 Mg Tablet PO 05/20/24 17:59 60 [...] 3 1426 Signed By: <Electronically signed by MARITO-VERÓNICA Javier> 06/02/23 0843 [facility] Work Phone: 1(848) 654-374610-11-2023 Progress note Author Silvestre Grover [facility] May 31, 2023 10:21am Note Date/Time May 31, 2023 1 0:17am [facility] [address] [place] [address] Physiatry(Rehab) Progress Note Signed Patient: Taurus Garcia MR#: [id number] : 1945 Acct:[id number] Age/Sex: 77 / M Adm Date: 3 Loc: Room: [address] [place] [address] Type: ADM IN Attending Dr: Silvestre Grover MD Copies to: ~ Date of Service: 05/31/2023 Subjective Subjective Narrative: Mr. Garcia is a 77 year old male with past medical history of myasthenia gravis,hypertension, A-fib anticoagulated with Eliquis, PE, CKD, obstructive sleep apnea on BiPAP, who presents to acute inpatient rehab with functional impairments due to MG crisis. Patient presented to [facility] on 05/11/2023 with complaints of worseninggeneralized weakness over the course of several days. He was found to be mildlyhypoxic. Also complaining of urinary symptoms. Initially admitted to [facility] for observation however developed worsening respiratory status with increased secretions and inability to protect own airway and was subsequently intubated [facility]. Patient received a [...] mg 05/21/23 14:25 Bisacodyl 10 Mg Supp.Rect TX 05/20/24 14:24 DAILY PRN Constipation Docusate Sodium 100 mg 05/21/23 14:25 Docusate 100 Mg Capsule PO 05/20/24 14:24 BID PRN Constipation Docusate Sodium 283 mg 05/21/23 14:25 Docusate Enema 283 Mg/5 Ml Enema TX 05/20/24 14:24 DAILY PRN Constipation Fish Oil 1,000 mg 05/21/23 21:00 05/31/23 07:49 [place]-3/Fish Oil 1,000 Mg Capsule PO 05/20/24 20:59 [...] 08:59 10 mg DAILY DORI Administration Pyridostigmine [place] 60 mg 05/21/23 18:00 05/31/23 07:50 Pyridostigmine [place] 60 Mg Tablet PO 05/20/24 17:59 60 [...] secondary to myasthenic crisis. Initially admitted to [facility] later transferred to [facility] for neurology services. Had to be [...] equipment to enhance the patient's a functional jewish Ensure adequate nutrition and hydration Sleep: No concerns. Pain: Continue current regimen Discharge planning: Hopefully home with his end of next week. Plan: I completed a substantive portion of this encounter, the medical decision making portion of this note in its entirety, including Allied health note review, nursing note review, community health consultant note review, discussion with nursing and case management, and more than 50% of my time was spent on counseling and coordination of care, time spent 25 minutes Patient was personally seen by me, Dr. Grover, on the day of encounter, reviewed the history and the relevant portions of the chart, including current orders, allied health and community health consultant notes, labs/imaging and performed garcia elements of exam and I formulated the plan of care and facilitated the medical decision making. Documented By: Silvestre Grover MD 05/31/23 1017 Signed By: <Electronically signed by Silvestre Grover MD> 05/31/23 1021 [facility] Work Phone: 1(130) 884-564810-10-2023 Progress note Author Silvestre Grover [facility] May 30, 2023 12:01pm Note Date/Time May 30, 2023 1 2:01pm [facility] [address] [place] [address] Physiatry(Rehab) Progress Note Signed Patient: Taurus Garcia MR#: [id number] : 1945 Acct:[id number] Age/Sex: 77 / M Adm Date: 3 Loc: Room: 0L2749-5 Type: ADM IN Attending Dr: Silvestre Grover MD Copies to: ~ Date of Service: 05/30/2023 Subjective Subjective Narrative: Mr. Garcia is a 77 year old male with past medical history of myasthenia gravis,hypertension, A-fib anticoagulated with Eliquis, PE, CKD, obstructive sleep apnea on BiPAP, who presents to acute inpatient rehab with functional impairments due to MG crisis. Patient presented to [facility] on 05/11/2023 with complaints of worseninggeneralized weakness over the course of several days. He was found to be mildlyhypoxic. Also complaining of urinary symptoms. Initially admitted to [facility] for observation however developed worsening respiratory status with increased secretions and inability to protect own airway and was subsequently intubated [facility]. Patient received a [...] % (Auto) 51.5 Lymph % (Auto) 29.7 [place] % (Auto) 14.8 Eos % (Auto) 3.8 Baso % (Auto) 0.2 Nucleat RBC Rel Count 0.2 Neut # (Auto) 2.9 Lymph # (Auto) 1.7 [place] # (Auto) 0.8 Eos # (Auto) 0.2 [...] mg 05/21/23 14:25 Bisacodyl 10 Mg Supp.Rect TX 05/20/24 14:24 DAILY PRN Constipation Docusate Sodium 100 mg 05/21/23 14:25 Docusate 100 Mg Capsule PO 05/20/24 14:24 BID PRN Constipation Docusate Sodium 283 mg 05/21/23 14:25 Docusate Enema 283 Mg/5 Ml Enema TX 05/20/24 14:24 DAILY PRN Constipation Fish Oil 1,000 mg 05/21/23 21:00 05/30/23 08:30 [place]-3/Fish Oil 1,000 Mg Capsule PO 05/20/24 20:59 [...] 08:59 10 mg DAILY DORI Administration Pyridostigmine [place] 60 mg 05/21/23 18:00 05/30/23 08:30 Pyridostigmine [place] 60 Mg Tablet PO 05/20/24 17:59 60 [...] secondary to myasthenic crisis. Initially admitted to [facility] later transferred to [facility] for neurology services. Had to be [...] equipment to enhance the patient's a functional jewish Ensure adequate nutrition and hydration Sleep: No concerns. Pain: Continue current regimen Discharge planning: Hopefully home with his end of next week. Plan: I completed a substantive portion of this encounter, the medical decision making portion of this note in its entirety, including Allied health note review, nursing note review, community health consultant note review, discussion with nursing and case management, and more than 50% of my time was spent on counseling and coordination of care, time spent 25 minutes Patient was personally seen by me, Dr. Grover, on the day of encounter, reviewed the history and the relevant portions of the chart, including current orders, allied health and community health consultant notes, labs/imaging and performed garcia elements of exam and I formulated the plan of care and facilitated the medical decision making. Documented By: Silvestre Grover MD 05/30/23 1152 Signed By: <Electronically signed by Silvestre Grover MD> 05/30/23 1201 [facility] Work Phone: 1(854) 351-942410-09-2023 Progress note Author Silvestre Grover [facility] May 29, 2023 1:20pm Note Date/Time May 29, 2023 11 :42am [facility] [address] [place] [address] Physiatry(Rehab) Progress Note Signed Patient: Taurus Garcia MR#: [id number] : 1945 Acct:[id number] Age/Sex: 77 / M Adm Date: 3 Loc: Room: [address] [place] [address] Type: ADM IN Attending Dr: Silvestre Grover MD Copies to: ~ <Antonia Grier APRN - Last Filed: 05/29/23 11:42> Date of Service: 05/29/2023 Subjective <Antonia Grier PATIENT FINANCIAL COUNSELOR - Last Filed: 05/29/23 11:42> Subjective Narrative: Mr. Garcia is a 77 year old male with past medical history of myasthenia gravis,hypertension, A-fib anticoagulated with Eliquis, PE, CKD, obstructive sleep apnea on BiPAP, who presents to acute inpatient rehab with functional impairments due to MG crisis. Patient presented to [facility] on 05/11/2023 with complaints of worseninggeneralized weakness over the course of several days. He was found to be mildlyhypoxic. Also complaining of urinary symptoms. Initially admitted to [facility] for observation however developed worsening respiratory status with increased secretions and inability to protect own airway and was subsequently intubated [facility] Patient received a [...] affect appropriate. Normal speech. Objective <Antonia Cherrie, PATIENT FINANCIAL COUNSELOR - Last Filed: 05/29/23 11:42> Labs 05/22/23 [...] mg 05/21/23 14:25 Bisacodyl 10 Mg Supp.Rect TX 05/20/24 14:24 DAILY PRN Constipation Docusate Sodium 100 mg 05/21/23 14:25 Docusate 100 Mg Capsule PO 05/20/24 14:24 BID PRN Constipation Docusate Sodium 283 mg 05/21/23 14:25 Docusate Enema 283 Mg/5 Ml Enema TX 05/20/24 14:24 DAILY PRN Constipation Fish Oil 1,000 mg 05/21/23 21:00 05/29/23 08:28 [place]-3/Fish Oil 1,000 Mg Capsule PO 05/20/24 20:59 [...] 08:59 10 mg DAILY DORI Administration Pyridostigmine [place] 60 mg 05/21/23 18:00 05/29/23 08:29 Pyridostigmine [place] 60 Mg Tablet PO 05/20/24 17:59 60 [...] secondary to myasthenic crisis. Initially admitted to [facility] later transferred to [facility] for neurology services. Had to be [...] equipment to enhance the patient's a functional jewish Ensure adequate nutrition and hydration Sleep: No concerns. Pain: Continue current regimen Discharge planning: Hopefully home with his in 3 weeks. I spent greater than 15 minutes for services, including madb-ft-gnwr encounter with the patient, discussion of the case, plan of care, and exam; and tikvvbi-uz-xvab activities, such as reviewing pertinent community health consultant documentation, recent therapy notes, laboratory and radiology studies, and discussion of case with care team including physician, nursing, bilingual patient support caseworker, and therapists. More than 50 % of [...] Allied health note review, nursing note review, community health consultant note review, discussion with nursing and case management, and more than 50% of my time was spent on counseling and coordination of care, time spent 25 minutes Patient was personally seen by me, Dr. Grover, on the day of encounter, reviewed the history and the relevant portions of the chart, including current orders, allied health and community health consultant notes, labs/imaging and performed garcia elements of exam and I formulated the plan of care and facilitated the medical decision making. Discontinue smith as mobility improves. Making good functional progress. Documented By: Antonia Grier APRN 05/29/23 1 133 Signed By: <Electronically signed by ZACH Grier> 05/29/23 1142 <Electronically signed by Silvestre Grover MD> 05/29/23 1320 [facility] Work Phone: 1([phone]) 244-648310-06-2023 Progress note Author Silvestre Grover [facility] May 26, 2023 3:42pm Note Date/Time May 25, 2023 11 :38am [facility] [address] [place] [address] Physiatry(Rehab) Progress Note Signed Patient: Taurus Garcia MR#: [id number] : 1945 Acct:[id number] Age/Sex: 77 / M Adm Date: 3 Loc: Room: [address] [place] [address] Type: ADM IN Attending Dr: Silvestre Grover [...] due to MG crisis. Patient presented to [facility] on 05/11/2023 with complaints of worseninggeneralized weakness over the course of several days. He was found to be mildlyhypoxic. Also complaining of urinary symptoms. Initially admitted to [facility] for observation however developed worsening respiratory status with increased secretions and inability to protect own airway and was subsequently intubated [facility]. Patient received a [...] affect appropriate. Normal speech. Objective <Antonia Cherrie, PATIENT FINANCIAL COUNSELOR - Last Filed: 05/25/23 11:50> Labs 05/22/23 [...] mg 05/21/23 14:25 Bisacodyl 10 Mg Supp.Rect TX 05/20/24 14:24 DAILY PRN Constipation Docusate Sodium 100 mg 05/21/23 14:25 Docusate 100 Mg Capsule PO 05/20/24 14:24 BID PRN Constipation Docusate Sodium 283 mg 05/21/23 14:25 Docusate Enema 283 Mg/5 Ml Enema TX 05/20/24 14:24 DAILY PRN Constipation Fish Oil 1,000 mg 05/21/23 21:00 05/25/23 09:34 [place]-3/Fish Oil 1,000 Mg Capsule PO 05/20/24 20:59 [...] 08:59 10 mg DAILY DORI Administration Pyridostigmine [place] 60 mg 05/21/23 18:00 05/25/23 09:27 Pyridostigmine [place] 60 Mg Tablet PO 05/20/24 17:59 60 mg QID DORI Administration Sennosides 2 tab 05/22/23 12:00 Sennosides 8.6 Mg Tablet PO 05/21/24 11:59 DAILY@12 PRN If no BM in 2 days Triamterene/Hydrochlorothiazide 1 tab 05/22/23 09:00 05/25/23 09:27 Triamterene/Hctz 37.5-25mg 1 Tab Tablet PO 05/21/24 08:59 1 tab DAILY DORI Administration Assessment/Plan <Antonia Grier, PATIENT FINANCIAL COUNSELOR - Last Filed: 05/25/23 11:50> Assessment/Plan (1) [...] secondary to myasthenic crisis. Initially admitted to [facility] later transferred to [facility] for neurology services. Had to be [...] equipment to enhance the patient's a functional jewish Ensure adequate nutrition and hydration Sleep: No concerns. Pain: Continue current regimen Discharge planning: Hopefully home with his in 3 weeks. I spent greater than 15 minutes for services, including tkxm-xy-cicg encounter with the patient, discussion of the case, plan of care, and exam; and cgdfkvd-tw-adfi activities, such as reviewing pertinent community health consultant documentation, recent therapy notes, laboratory and radiology studies, and discussion of case with care team including physician, nursing, bilingual patient support caseworker, and therapists. More than 50 % of [...] Allied health note review, nursing note review, community health consultant note review, discussion with nursing and case management, and more than 50% of my time was spent on counseling and coordination of care, time spent 25 minutes Patient was personally seen by me, Dr. Grover, on the day of encounter, reviewed the history and the relevant portions of the chart, including current orders, allied health and community health consultant notes, labs/imaging and performed garcia elements of exam and I formulated the plan of care and facilitated the medical decision making. Documented By: Antonia Grier APRN 05/25/23 1 136 Signed By: <Electronically signed by ZACH Grier> 05/25/23 1150 <Electronically signed by Silvestre Grover MD> 05/26/23 7661 [facility] Work Phone: 1(616) 501-244710-05-2023 Progress note Author Silvestre Grover [facility] May 25, 2023 8:34am Note Date/Time May 24, 2023 1: 11pm [facility] [address] [place] [address] Physiatry(Rehab) Progress Note Signed Patient: Taurus Garcia MR#: [id number] : 1945 Acct:[id number] Age/Sex: 77 / M Adm Date: 3 Loc: 5T Room: 9V4298-0 Type: ADM IN Attending Dr: Silvestre Grover MD Copies to: ~ Date of Service: 05/24/2023 Subjective Subjective Narrative: Mr. Garcia is a 77 year old male with past medical history of myasthenia gravis,hypertension, A-fib anticoagulated with Eliquis, PE, CKD, obstructive sleep apnea on BiPAP, who presents to acute inpatient rehab with functional impairments due to MG crisis. Patient presented to [facility] on 05/11/2023 with complaints of worseninggeneralized weakness over the course of several days. He was found to be mildlyhypoxic. Also complaining of urinary symptoms. Initially admitted to [facility] for observation however developed worsening respiratory status with increased secretions and inability to protect own airway and was subsequently intubated [facility]. Patient received a [...] mg 05/21/23 14:25 Bisacodyl 10 Mg Supp.Rect TX 05/20/24 14:24 DAILY PRN Constipation Docusate Sodium 100 mg 05/21/23 14:25 Docusate 100 Mg Capsule PO 05/20/24 14:24 BID PRN Constipation Docusate Sodium 283 mg 05/21/23 14:25 Docusate Enema 283 Mg/5 Ml Enema TX 05/20/24 14:24 DAILY PRN Constipation Fish Oil 1,000 mg 05/21/23 21:00 05/24/23 08:33 [place]-3/Fish Oil 1,000 Mg Capsule PO 05/20/24 20:59 [...] 08:59 10 mg DAILY DORI Administration Pyridostigmine [place] 60 mg 05/21/23 18:00 05/24/23 08:33 Pyridostigmine [place] 60 Mg Tablet PO 05/20/24 17:59 60 [...] secondary to myasthenic crisis. Initially admitted to [facility] later transferred to [facility] for neurology services. Had to be [...] equipment to enhance the patient's a functional jewish Ensure adequate nutrition and hydration Sleep: No concerns. Pain: Continue current regimen Discharge planning: Hopefully home with his in 3 weeks. Plan: I completed a substantive portion of this encounter, the medical decision making portion of this note in its entirety, including Allied health note review, nursing note review, community health consultant note review, discussion with nursing and case management, and more than 50% of my time was spent on counseling and coordination of care, time spent 20 minutes Patient was personally seen by me, Dr. Grover, on the day of encounter, reviewed the history and the relevant portions of the chart, including current orders, allied health and community health consultant notes, labs/imaging and performed garcia elements of exam and I formulated the plan of care and facilitated the medical decision making. Documented By: Silvestre Grover MD 05/24/23 1310 Signed By: <Electronically signed by Silvestre Grover MD> 05/25/23 1450 [facility] Work Phone: 1(205) 478-430710-03-2023 Consult note Author Jarret Garza [facility] May 23, 2023 2:28pm Note Date/Time May 22, 2023 4: 54pm [facility] [address] [place] [address] Hospitalist Consult Note Signed Patient: Taurus Garcia MR#: [id number] : 1945 Acct:[id number] Age/Sex: 77 / M Adm Date: 3 Loc: Room: [address] [place] [address] Type: ADM IN Attending Dr: Silvestre Grover MD Copies to: MD Silvestre Gonsalves II, MD Linda Obika, ZACH Garza MD~ HPI DATE OF CONSULTATION: 05/22/23 REQUESTING PROVIDER: Silvestre Grover Consult Narrative Reason for Consult: HTN, HLD, myasthenia gravis, CKD, PE HPI: Patient is a 77M with a PMHx of HTN, HLD, Myasthenia Gravis (Dx 2017), CKD, PE(On Eliquis) who was admitted to [facility] 05/09 for generalized weakness and was also found to be mildly hypoxic. He was intubated there then transferred to [facility] for evaluation and treatment of suspected [...] mg PO DAILY 12/27/17 [History Confirmed 05/21/23] wlwnegxw-oak-cvkcx acid 0.4 mg-lycopene 300 mcg-lutein 250 mcg [...] mg 05/21/23 14:25 Bisacodyl 10 Mg Supp.Rect TX 05/20/24 14:24 DAILY PRN Constipation Docusate Sodium 100 mg 05/21/23 14:25 Docusate 100 Mg Capsule PO 05/20/24 14:24 BID PRN Constipation Docusate Sodium 283 mg 05/21/23 14:25 Docusate Enema 283 Mg/5 Ml Enema TX 05/20/24 14:24 DAILY PRN Constipation Fish Oil 1,000 mg 05/21/23 21:00 05/22/23 08:58 [place]-3/Fish Oil 1,000 Mg Capsule PO 05/20/24 20:59 [...] 08:59 10 mg DAILY DORI Administration Pyridostigmine [place] 60 mg 05/21/23 18:00 05/22/23 14:40 Pyridostigmine [place] 60 Mg Tablet PO 05/20/24 17:59 60 [...] Creatinine Clear 100.28, Sodium 141, Potassium 3.7, [id number], Carbon Dioxide 30.8, Anion Gap 7.9, BUN [...] % (Auto) 63.1, Lymph % (Auto) 20.4, Walton % (Auto) 10.8, Eos % (Auto) 5.4, Baso % (Auto) 0.3, Nucleat RBC Rel Count 0.1, Neut # (Auto) 4.6, Lymph # (Auto) 1.5, Walton # (Auto) 0.8, Eos # (Auto) 0.4, [...] signed by Jarret Garza MD> 05/23/23 1428 [facility] Work Phone: 1(721) 469-534310-02-2023 History and physical note Author Silvestre Grover [facility] May 22, 2023 3:50pm Note Date/Time May 22, 2023 10 :42am [facility] [address] [place] [address] Physiatry (Rehab) H&P Signed Patient: Taurus Garcia MR#: [id number] : 1945 Acct:[id number] Age/Sex: 77 / M Adm Date: 3 Loc: 5T Room: 4F2664-1 Type: ADM IN Attending Dr: Silvestre Grover [...] due to MG crisis. Patient presented to [facility] on 05/11/2023 with complaints of worseninggeneralized weakness over the course of several days. He was found to be mildlyhypoxic. Also complaining of urinary symptoms. Initially admitted to [facility] for observation however developed worsening respiratory status with increased secretions and inability to protect own airway and was subsequently intub[facility]. Patient received a [...] mg PO DAILY 12/27/17 [History Confirmed 05/21/23] kcaonene-olj-ybjiw acid 0.4 mg-lycopene 300 mcg-lutein 250 mcg [...] Bisacodyl (Bisacodyl 10 Mg Supp.Rect) 10 mg TX DAILY PRN PRN Reason: Constipation Stop: 05/20/24 14:24 Docusate Sodium (Docusate 100 Mg Capsule) 100 mg PO BID PRN PRN Reason: Constipation Stop: 05/20/24 14:24 Docusate Sodium (Docusate Enema 283 Mg/5 Ml Enema) 283 mg TX DAILY PRN PRN Reason: Constipation Stop: 05/20/24 14:24 Fish Oil ([place]-3/Fish Oil 1,000 Mg Capsule) 1,000 mg PO [...] Admin: 05/22/23 08:58 Dose: 10 mg Pyridostigmine [place] (Pyridostigmine [place] 60 Mg Tablet) 60 mg PO QID DORI Stop: 05/20/24 17:59 Last Admin: 05/22/23 08:57 Dose: 60 mg Sennosides (Sennosides 8.6 Mg Tablet) 2 tab PO DAILY@12 PRN PRN Reason: If no BM in 2 days Stop: 05/21/24 11:59 Triamterene/Hydrochlorothiazide (Triamterene/Hctz 37.5-25mg 1 Tab Tablet) 1 tabPO DAILY DORI Stop: 05/21/24 08:59 Last Admin: 05/22/23 08:57 Dose: 1 tab Exam <Antonia ZACH Girer - Last Filed: 05/22/23 11:48> Physical Exam [...] and affect appropriate. Normal speech. Results <Antonia ZACH Grier - Last Filed: 05/22/23 11:48> Labs Labs: Laboratory Results - last 24 hr 05/22/23 05/22/23 08:23 08:23 Corrected WBC 7.3 Uncorrected WBC Count 7.3 RBC 4.42 Hgb 12.4 L Hct 38.0 L MCV 86.0 MCH 28.0 MCHC 32.5 RDW 18.1 H Plt Count 153 MPV 8.4 Neut % (Auto) 63.1 Lymph % (Auto) 20.4 Walton % (Auto) 10.8 Eos % (Auto) 5.4 Baso % (Auto) 0.3 Nucleat RBC Rel Count 0.1 Neut # (Auto) 4.6 Lymph # (Auto) 1.5 Walton # (Auto) 0.8 Eos # (Auto) 0.4 [...] mobility Anticipated interventions: Physician management, PT, OT, EXHIBITION CARVER, , Dietitian, RehabNursing, Case management 2. Therapy Functional Outcome/Goal: Anticipate standby assist transfers Anticipated interventions: Physician management, PT, OT, EXHIBITION CARVER, Case management, Dietitian, Rehab Nursing 3. Therapy Functional Outcome/Goal: Anticipate min assist ambulation Anticipated interventions: Physician management, PT, OT, EXHIBITION CARVER Case management, Dietitian, Rehab Nursing 4.Therapy Functional Outcome/Goal: Anticipate min assist self-care Anticipated interventions: Physician management, PT, OT, EXHIBITION CARVER, Case management, Dietitian, Rehab Nursing 5.Therapy Functional Outcome/Goal: Anticipate min assist swallowing. Anticipated interventions: Physician management, PT, OT, EXHIBITION CARVER, Case management, Dietitian, Rehab Nursing Required Therapy [...] additional therapy on as needed basis. Comments: EXHIBITION CARVER to evaluate and treat patient?s cognition, language and communication skills, assess swallow function. Other: Dietitian, Rehab nursing, Wound, P&O, Neuropsychology as needed RATIONALE FOR IRF ADMISSION: Patient has both medical and functional complexities that require 24 hour daily monitoring and intervention from Interior Design Professor as well as other consulting physicians including internal medicine as well as 24 hour daily vat house laborer nursing - for medical safe / optimal management. Patient requires interdisciplinary therapy team rehabilitation care including OT, PT, EXHIBITION CARVER, SW, Psychology, Rehab Nursing, requires and can [...] impairments secondaryto myasthenic crisis. Initially admitted to [facility] later [facility] for neurology services. Had to be [...] equipment to enhance the patient's a functional jewish Ensure adequate nutrition and hydration Sleep: No concerns. Pain: Continue current regimen Discharge planning: Hopefully home with his in 10 to 14 days. I spent greater than 45 minutes for services, including bmrf-iw-zdyo encounter with the patient, discussion of the case, plan of care, and exam; and rzoxytv-ut-faxe activities, such as reviewing pertinent community health consultant documentation, recent therapy notes, laboratory and radiology studies, and discussion of case with care team including physician, nursing, bilingual patient support caseworker, and therapists. More than 50 % of [...] Allied health note review, nursing note review, community health consultant note review, discussion with nursing and case management, and more than 50% of my time was spent on counseling and coordination of care, time spent 70 minutes Patient was personally seen by me, Dr. Grover, on the day of encounter, reviewed the history and the relevant portions of the chart, including current orders, allied health and community health consultant notes, labs/imaging and performed garcia elements of exam and I formulated the plan of care and facilitated the medical decision making. Documented By: Antonia Grier APRN 05/22/23 1 040 Signed By: <Electronically signed by ZACH Grier> 05/22/23 1148 <Electronically signed by Silvestre Grover MD> 05/22/23 1550 [facility] Work Phone: 1(872) 225-735509-30-2023 Progress note Author Suraj Razo [facility] May 20, 2023 8:14am Note Date/Time May 20, 2023 8:10am [facility] [address] [place] [address] Hospitalist Progress Note Signed Patient: Taurus Garcia MR#: [id number] : 1945 Acct:[id number] Age/Sex: 77 / M Adm Date: 3 Loc: Room: [address] [place] [address] Type: ADM IN Attending Dr: Suraj Razo MD Copies to: ~ Date of Service: 05/20/2023 Subjective Subjective Narrative: Assessment And Plan 77M with PMH of HTN, HLD, Myasthenia Gravis (Dx 2016), CKD, PE(On Eliquis) who was admitted to [facility] 05/09 for generalized weakness. He was intubated [...] 08:59 10 mg DAILY DORI Administration Pyridostigmine [place] 60 mg 05/18/23 14:00 05/19/23 21:30 Pyridostigmine [place] 60 Mg Tablet PO 05/17/24 13:59 60 mg QID DORI Administration A&P - Hospitalist Assessment/Plan (1) Acute exacerbation of myasthenia gravis: (2) Acute respiratory failure with hypoxia: (3) CKD (chronic kidney disease) stage 3, GFR 30-59 ml/min: Plan . Documented By: Suraj Razo MD 05/20/23808 Signed By: <Electronically signed by Suraj Razo MD> 05/20/23813 [facility] Work Phone: 1([phone]) 625-604809-29-2023 Progress note Author Suraj Razo [facility] May 19, 2023 1:42pm Note Date/Time May 19, 2023 1:42pm [facility] [address] [place] [address] Hospitalist Progress Note Signed Patient: Taurus Garcia MR#: [id number] : 1945 Acct:[id number] Age/Sex: 77 / M Adm Date: 3 Loc: Room: [address] [place] [address] Type: ADM IN Attending Dr: Suraj Razo MD Copies to: ~ Date of Service: 05/19/2023 Subjective Subjective Narrative: Assessment And Plan 77M with PMH of HTN, HLD, Myasthenia Gravis (Dx 2016), CKD, PE(On Eliquis) who was admitted to [facility] 05/09 for generalized weakness. He was intubated [...] 08:59 10 mg DAILY DORI Administration Pyridostigmine [place] 60 mg 05/18/23 14:00 05/19/23 08:28 Pyridostigmine [place] 60 Mg Tablet PO 05/17/24 13:59 60 mg QID DORI Administration A&P - Hospitalist Assessment/Plan (1) Acute exacerbation of myasthenia gravis: (2) Acute respiratory failure with hypoxia: (3) CKD (chronic kidney disease) stage 3, GFR 30-59 ml/min: Plan . Documented By: Suraj Razo MD 05/19/23 134 Signed By: <Electronically signed by Suraj Razo MD> 05/19/23 1342 [facility] Work Phone: 1(258) 788-412609-29-2023 Progress note Author Stanley Burt [facility] May 19, 2023 11:15am Note Date/Time May 19, 2023 8:43am [facility] [address] [place] [address] Pulmonology Progress Note Signed Patient: Taurus Garcia MR#: [id number] : 1945 Acct:[id number] Age/Sex: 77 / M Adm Date: 3 Loc: Room: [address] [place] [address] Type: ADM IN Attending Dr: Suraj Razo [...] rehabilitation. Documented By: Stanley Burt MD 3 [id number] Signed By: <Electronically signed by MD Stanley Burt> 05/19/23 1115 [facility] Work Phone: 1([phone]) 115-493409-29-2023 Progress note Author Silvestre Grover [facility] May 19, 2023 10:51am Note Date/Time May 19, 2023 10:03am [facility] [address] [place] [address] Physiatry(Rehab) Progress Note Signed Patient: Taurus Garcia MR#: [id number] : 1945 Acct:[id number] Age/Sex: 77 / M Adm Date: 3 Loc: Room: [address] [place] [address] Type: ADM IN Attending Dr: Suraj Razo [...] to feel generally weak, he presented to [facility] and was subsequently intubated and transferred to [...] % (Auto) 53.7 Lymph % (Auto) 22.1 Walton % (Auto) 10.0 Eos % (Auto) 13.8 Baso % (Auto) 0.4 Nucleat RBC Rel Count 0.2 Neut # (Auto) 2.7 Lymph # (Auto) 1.1 Walton # (Auto) 0.5 Eos # (Auto) 0.7 [...] 08:59 10 mg DAILY DORI Administration Pyridostigmine [place] 60 mg 05/18/23 14:00 05/19/23 08:28 Pyridostigmine [place] 60 Mg Tablet PO 05/17/24 13:59 60 [...] for myasthenic crisis, [facility] just extubated 05/15, being evaluated for [...] Allied health note review, nursing note review, community health consultant note review, discussion with nursing and case management, and more than 50% of my time was spent on counseling and coordination of care, time spent 30 minutes Patient was personally seen by me, Dr. Grover, on the day of encounter, reviewed the history and the relevant portions of the chart, including current orders, allied health and community health consultant notes, labs/imaging and performed garcia elements of exam and I formulated the plan of care and facilitated the medical decision making. Documented By: Silvestre Grover MD 05/19/23 1003 Signed By: <Electronically signed by Silvestre Grover MD> 05/19/23 1051 [facility] Work Phone: 1([phone]) [phone] Consult note Author Pat Hoover [facility] May 18, 2023 6:00pm Note Date/Time May 18, 2023 6:00pm [facility] [address] [place] [address] Cardiology Consult Note Signed Patient: Taurus Garcia MR#: [id number] : 1945 Acct:[id number] Age/Sex: 77 / M Adm Date: 3 Loc: Room: [address] [place] [address] Type: ADM IN Attending Dr: Suraj Razo [...] activity Respiratory Respiratory: Reports as per HPI [facility] Medical History Acute exacerbation of myasthenia gravis [...] mg PO DAILY 12/27/17 [History Confirmed 05/10/23] czspvrin-tdb-pfzhc acid 0.4 mg-lycopene 300 mcg-lutein 250 mcg [...] x10E3/uL Lymph # (Auto) 1.0 (1.00-4.8) x10E3/uL Walton # (Auto) 0.4 (0.0-0.8) x10E3/uL Eos # [...] 5 250 / 250 % in Water [place] 241 ml @ 0.5 MG/MIN 16.667 mls/hr IV .Q15H [facility] Rx#:[id number] Oral 60 / 460 400 / 460 [...] signed by Pat Hoover DO> 05/18/23 1800 [facility] Work Phone: [phone]) [phone] Progress note Author Stanley Burt [facility] May 18, 2023 4:48pm Note Date/Time May 18, 2023 8:38am [facility] [address] [place] [address] Pulmonology Progress Note Signed Patient: Taurus Garcia MR#: [id number] : 1945 Acct:[id number] Age/Sex: 77 / M Adm Date: 3 Loc: Room: [address] [place] [address] Type: ADM IN Attending Dr: Suraj Razo [...] <Electronically signed by MD Stanley Burt> 05/18/23 1437 [facility] Work Phone: [phone]) [phone] Progress note Author Suraj Razo [facility] May 18, 2023 12:58pm Note Date/Time May 18, 2023 12:55pm [facility] [address] [place] [address] Hospitalist Progress Note Signed Patient: Taurus Garcia MR#: [id number] : 1945 Acct:[id number] Age/Sex: 77 / M Adm Date: 3 Loc: Room: [address] [place] [address] Type: ADM IN Attending Dr: Suraj Razo MD Copies to: ~ Date of Service: 05/18/2023 Subjective Subjective Narrative: Assessment And Plan 77M with PMH of HTN, HLD, Myasthenia Gravis (Dx 2016), CKD, PE(On Eliquis) who was admitted to [facility] 05/09 for generalized weakness. He was intubated [...] 08:59 10 mg DAILY DORI Administration Pyridostigmine [place] 60 mg 05/18/23 14:00 Pyridostigmine [place] 60 Mg Tablet PO 05/17/24 13:59 QID DORI A&P - Hospitalist Assessment/Plan (1) Acute exacerbation of myasthenia gravis: (2) Acute respiratory failure with hypoxia: (3) CKD (chronic kidney disease) stage 3, GFR 30-59 ml/min: Plan . Documented By: Suraj Razo MD 05/18/23 1253 Signed By: <Electronically signed by Suraj Razo MD> 05/18/23 1252 [facility] Work Phone: 1(335) [phone] Progress note Author Jamel Packer [facility] May 17, 2023 2:05pm Note Date/Time May 17, 2023 2:05pm [facility] [address] [place] [address] Neurology Progress Note Signed Patient: Taurus Garcia MR#: [id number] : 1945 Acct:[id number] Age/Sex: 77 / M Adm Date: 3 Loc: Room: [address] [place] [address] Type: ADM IN Attending Dr: Suraj Razo [...] Therapy Recommendations: OT Recommendations OT Recommended Discharge Correction Facility,LTACH Location OT Recommended Services at Physical Therapy,Occupational Therapy,Speech Discharge Therapy,13/03 Supervision PT Recommendations PT Recommended Discharge Correction Facility,[facility] Location PT Recommended Services at Physical Therapy,Occupational Therapy Discharge ST Recommendations Level of Supervision 1:1 Feeding Supervision Liquid Consistency [place]-Thick Liquids Recommendation Solid Consistency Pureed Solids Recommendations [...] <Electronically signed by Jamel Packer DO> 05/17/23 1400 [facility] Work Phone: [phone] 331-861409-27-2023 Progress note Author Stanley Burt [facility] May 17, 2023 12:50pm Note Date/Time May 17, 2023 12:50pm [facility] [address] [place] [address] Pulmonology Progress Note Signed Patient: Taurus Garcia MR#: [id number] : 1945 Acct:[id number] Age/Sex: 77 / M Adm Date: 3 Loc: Room: [address] [place] [address] Type: ADM IN Attending Dr: Suraj Razo [...] ICU. Documented By: Stanley Burt MD 3 1719 Signed By: <Electronically signed by MD Stanley Burt> 05/17/23 3996 [facility] Work Phone: 1(249) [phone] Progress note Author Suraj Razo [facility] May 17, 2023 11:57am Note Date/Time May 17, 2023 11:48am [facility] [address] [place] [address] Hospitalist Progress Note Signed Patient: Taurus Garcia MR#: [id number] : 1945 Acct:[id number] Age/Sex: 77 / M Adm Date: 3 Loc: Room: [address] [place] [address] Type: ADM IN Attending Dr: Suraj Razo MD Copies to: ~ Date of Service: 05/17/2023 Subjective Subjective Narrative: Assessment And Plan 77M with PMH of HTN, HLD, Myasthenia Gravis (Dx 2017), CKD, PE(On Eliquis) who was admitted to [facility] 05/09 for generalized weakness. He was intubated [...] 08:59 10 mg DAILY DORI Administration Pyridostigmine [place] 60 mg 05/15/23 22:00 05/17/23 08:52 Pyridostigmine [place] 60 Mg Tablet NG-TUBE 05/14/24 21:59 60 mg TID DORI Administration A&P - Hospitalist Assessment/Plan (1) Acute exacerbation of myasthenia gravis: (2) Acute respiratory failure with hypoxia: (3) CKD (chronic kidney disease) stage 3, GFR 30-59 ml/min: Plan . Documented By: Suraj Razo MD 05/17/23 1146 Signed By: <Electronically signed by Suraj Razo MD> 05/17/23 1157 [facility] Work Phone: [phone] Progress note Author Silvestre Grover [facility] May 17, 2023 10:48am Note Date/Time May 17, 2023 10:48am [facility] [address] [place] [address] Physiatry(Rehab) Progress Note Signed Patient: Taurus Garcia MR#: [id number] : 1945 Acct:[id number] Age/Sex: 77 / M Adm Date: 3 Loc: Room: [address] [place] [address] Type: ADM IN Attending Dr: Suraj Razo [...] to feel generally weak, he presented to [facility] and was subsequently intubated and transferred to [...] MPV Neut % (Auto) Lymph % (Auto) [place] % (Auto) Eos % (Auto) Baso % (Auto) Nucleat RBC Rel Count Neut # (Auto) Lymph # (Auto) [place] # (Auto) Eos # (Auto) Baso # [...] Color Urine Appearance Urine pH Ur Specific [place] Urine Protein Urine Glucose (UA) Urine Ketones Urine Occult Blood Urine Nitrite Urine Bilirubin Urine Urobilinogen Ur Leukocyte Esterase Urine RBC Urine WBC Ur Squamous Epith Cells Calcium Oxalate Crystal Urine Bacteria Hyaline Casts Urine Yeast 05/16/23 05/16/23 05/16/23 10:32 13:20 16:37 Corrected WBC Uncorrected WBC Count RBC Hgb Hct MCV MCH MCHC RDW Plt Count MPV Neut % (Auto) Lymph % (Auto) [place] % (Auto) Eos % (Auto) Baso % (Auto) Nucleat RBC Rel Count Neut # (Auto) Lymph # (Auto) [place] # (Auto) Eos # (Auto) Baso # (Auto) PHA Creatinine Clear Sodium Potassium Chloride Carbon Dioxide Anion Gap BUN Creatinine Est GFR (CKD-EPI) Glucose POC Glucose 165 POC Glucose Comment Glu2: cleaned meter Calcium Magnesium Total Creatine Kinase 175 Troponin I High Sens TSH 3rd Generation Urine Color Yellow Urine Appearance Clear Urine pH 5.5 Ur Specific [place] 1.026 Urine Protein 30 H Urine Glucose [...] % (Auto) 72.4 Lymph % (Auto) 12.6 Walton % (Auto) 7.6 Eos % (Auto) 7.1 Baso % (Auto) 0.3 Nucleat RBC Rel Count 0.5 Neut # (Auto) 3.2 Lymph # (Auto) 0.6 L [place] # (Auto) 0.3 Eos # (Auto) 0.3 Baso # (Auto) 0.0 PHA Creatinine Clear Sodium Potassium Chloride Carbon Dioxide Anion Gap BUN Creatinine Est GFR (CKD-EPI) Glucose POC Glucose 146 107 POC Glucose Comment Glu2: cleaned meter Calcium Magnesium Total Creatine Kinase Troponin I High Sens TSH 3rd Generation Urine Color Urine Appearance Urine pH Ur Specific [place] Urine Protein Urine Glucose (UA) Urine Ketones Urine Occult Blood Urine Nitrite Urine Bilirubin Urine Urobilinogen Ur Leukocyte Esterase Urine RBC Urine WBC Ur Squamous Epith Cells Calcium Oxalate Crystal Urine Bacteria Hyaline Casts Urine Yeast 05/17/23 04:19 Corrected WBC Uncorrected WBC Count RBC Hgb Hct MCV MCH MCHC RDW Plt Count MPV Neut % (Auto) Lymph % (Auto) [place] % (Auto) Eos % (Auto) Baso % (Auto) Nucleat RBC Rel Count Neut # (Auto) Lymph # (Auto) [place] # (Auto) Eos # (Auto) Baso # [...] Color Urine Appearance Urine pH Ur Specific [place] Urine Protein Urine Glucose (UA) Urine Ketones [...] 08:59 10 mg DAILY DORI Administration Pyridostigmine [place] 60 mg 05/15/23 22:00 05/17/23 08:52 Pyridostigmine [place] 60 Mg Tablet NG-TUBE 05/14/24 21:59 60 [...] for myasthenic crisis, [facility], just extubated 05/15, being evaluated for possible IRF placement. -Discussed with pulmonology [employer]. -At this time remains not medically ready for transition to IRF and cannot tolerate 3 hours of therapy daily. Dependent for all mobility. Limited tolerance. -Hopefully can progress over next several days and be able to tolerate IRF level therapy when medically stable for discharge, family prefers [facility] as backup plan if LTACH not required. -Reviewed Neurology note, does not appear would require transfer to tertiary center at this time. -Will follow daily for updated progress. Plan: I completed a substantive portion of this encounter, the medical decision making portion of this note in its entirety, including Allied health note review, nursing note review, community health consultant note review, discussion with nursing and case management, and more than 50% of my time was spent on counseling and coordination of care, time spent 25 minutes Patient was personally seen by me, Dr. Grover, on the day of encounter, reviewed the history and the relevant portions of the chart, including current orders, allied health and community health consultant notes, labs/imaging and performed garcia elements of exam and I formulated the plan of care and facilitated the medical decision making. Documented By: Silvestre Grover MD 05/17/23 1044 Signed By: <Electronically signed by iSlvestre Grover MD> 05/17/23 1048 [facility] Work Phone: 1(509) 435-575909-26-2023 Consult note Author Silvestre Grover [facility] May 16, 2023 3:19pm Note Date/Time May 16, 2023 2:46pm [facility] [address] [place] [address] Physiatry (Rehab) Consult Note Signed Patient: Taurus Garcia MR#: [id number] : 1945 Acct:[id number] Age/Sex: 77 / M Adm Date: 3 Loc: Room: [address] [place] [address] Type: ADM IN Attending Dr: Suraj Razo [...] to feel generally weak, he presented to [facility] and was subsequently intubated and transferred to [...] of motion. Eyes closed most of session. EXHIBITION CARVER notes reviewed, cleared for modified diet. Review of Systems Review of Systems All other systems reviewed & are negative unless noted below or in HPI [facility] Medical History Acute exacerbation of myasthenia gravis [...] mg PO DAILY 12/27/17 [History Confirmed 05/10/23] dhdmekcj-iut-vnqjj acid 0.4 mg-lycopene 300 mcg-lutein 250 mcg [...] MPV Neut % (Auto) Lymph % (Auto) [place] % (Auto) Eos % (Auto) Baso % (Auto) Nucleat RBC Rel Count Neut # (Auto) Lymph # (Auto) [place] # (Auto) Eos # (Auto) Baso # (Auto) Potassium 4.0 POC Glucose 152 146 Magnesium 1.9 Urine Color Urine Appearance Urine pH Ur Specific [place] Urine Protein Urine Glucose (UA) Urine Ketones [...] % (Auto) 82.7 Lymph % (Auto) 7.8 [place] % (Auto) 5.0 Eos % (Auto) 4.2 Baso % (Auto) 0.3 Nucleat RBC Rel Count 0.5 Neut # (Auto) 4.4 Lymph # (Auto) 0.4 L [place] # (Auto) 0.3 Eos # (Auto) 0.2 Baso # (Auto) 0.0 Potassium POC Glucose 100 Magnesium Urine Color Yellow Urine Appearance Clear Urine pH 5.5 Ur Specific [place] 1.026 Urine Protein 30 H Urine Glucose [...] for myasthenic crisis, [facility] just extubated 05/15, being evaluated for [...] when medically stable for discharge, family prefers [facility] as backup plan if LTACH not required. -Reviewed Neurology note, does not appear would require transfer to tertiary center at this time. -Will follow daily for updated progress. Plan: I completed a substantive portion of this encounter, the medical decision makingportion of this note in its entirety, including Allied health note review, nursing note review, community health consultant note review, discussion with nursing and case management, and more than 50% of my time was spent on counseling and coordination of care, time spent 65 minutes Patient was personally seen by me, Dr. Grover, on the day of encounter, reviewed the history and the relevant portions of the chart, including current orders, allied health and community health consultant notes, labs/imaging and performed garcia elements of exam and I formulated the plan of care and facilitated the medical decision making. Documented By: Silvestre Grover MD 05/16/23 1208 Signed By: <Electronically signed by Silvestre Grover MD> 05/16/23 1519 [facility] Work Phone: [phone]) [phone] Progress note Author Jamel Packer [facility] May 16, 2023 2:29pm Note Date/Time May 16, 2023 2:29pm [facility] [address] [place] [address] Neurology Progress Note Signed Patient: Taurus Garcia MR#: [id number] : 1945 Acct:[id number] Age/Sex: 77 / M Adm Date: 3 Loc: Room: [address] [place] [address] Type: ADM IN Attending Dr: Suraj Razo [...] of Supervision 1:1 Feeding Supervision Liquid Consistency [place]-Thick Liquids Recommendation Solid Consistency Pureed Solids Recommendations [...] signed by Jamel Packer DO> 05/16/23 142 [facility] Work Phone: [phone] Progress note Author Suraj Razo [facility] May 16, 2023 1:53pm Note Date/Time May 16, 2023 1:53pm [facility] [address] [place] [address] Hospitalist Progress Note Signed Patient: Taurus Garcia MR#: [id number] : 1945 Acct:[id number] Age/Sex: 77 / M Adm Date: 3 Loc: Room: [address] [place] [address] Type: ADM IN Attending Dr: Suraj Razo MD Copies to: ~ Date of Service: 05/16/2023 Subjective Subjective Narrative: Assessment And Plan 77M with PMH of HTN, HLD, Myasthenia Gravis (Dx 2016), CKD, PE(On Eliquis) who was admitted to [facility] 05/09 for generalized weakness. He was intubated [...] 08:59 60 mg DAILY DORI Administration Pyridostigmine [place] 60 mg 05/15/23 22:00 05/16/23 09:25 Pyridostigmine [place] 60 Mg Tablet NG-TUBE 05/14/24 21:59 60 [...] signed by Suraj Razo MD> 05/16/23 1353 [facility] Work Phone: [phone] Progress note Author Stanley Burt [facility] May 16, 2023 11:27am Note Date/Time May 16, 2023 11:27am [facility] [address] [place] [address] Pulmonology Progress Note Signed Patient: Taurus Garcia MR#: [id number] : 1945 Acct:[id number] Age/Sex: 77 / M Adm Date: 3 Loc: Room: [address] [place] [address] Type: ADM IN Attending Dr: Suraj Razo [...] secretions. Documented By: Stanley Burt MD 3 1425 Signed By: <Electronically signed by MD Stanley Burt> 05/16/23 1127 [facility] Work Phone: [phone] Progress note Author Jamel Packer [facility] May 15, 2023 1:56pm Note Date/Time May 15, 2023 1:54[facility] [address] [place] [address] Neurology Progress Note Signed Patient: Taurus Garcia MR#: [id number] : 1945 Acct:[id number] Age/Sex: 77 / M Adm Date: 3 Loc: Room: [address] [place] [address] Type: ADM IN Attending Dr: Suraj Razo [...] <Electronically signed by Jamel Packer DO> 05/15/23 8644 [facility] Work Phone: [phone]) 811-471009-25-2023 Progress note Author Suraj Razo [facility] May 15, 2023 12:28pm Note Date/Time May 15, 2023 12:25pm [facility] [address] [place] [address] Hospitalist Progress Note Signed Patient: Taurus Garcia MR#: [id number] : 1945 Acct:[id number] Age/Sex: 77 / M Adm Date: 3 Loc: Room: [address] [place] [address] Type: ADM IN Attending Dr: Suraj Razo MD Copies to: ~ Date of Service: 05/15/2023 Subjective Subjective Narrative: Assessment And Plan 77M with PMH of HTN, HLD, Myasthenia Gravis (Dx 2017), CKD, PE(On Eliquis) who was admitted to [facility] 05/09 for generalized weakness. He was intubated [...] 05/10/24 00:22 PROTOCOL PRN Bolus Documentation Pyridostigmine [place] 30 mg 05/14/23 14:00 05/15/23 08:57 Pyridostigmine [place] 60 Mg Tablet NG-TUBE 05/13/24 13:59 30 mg TID DORI Administration Sodium Chloride 10 ml 05/11/23 01:30 Sodium Chloride 0.9 % 10 Ml Syringe IV-PUSH 09/20/24 01:29 PRN PRN Flush Sodium Chloride 10 [...] signed by Suraj Razo MD> 05/15/23 1228 [facility] Work Phone: [phone]) [phone] Progress note Author Stanley Burt [facility] May 15, 2023 11:32am Note Date/Time May 15, 2023 11:25am [facility] [address] [place] [address] Pulmonology Progress Note Signed Patient: Taurus Garcia MR#: [id number] : 1945 Acct:[id number] Age/Sex: 77 / M Adm Date: 3 Loc: Room: [address] [place] [address] Type: ADM IN Attending Dr: Suraj Razo [...] previous pulmonary embolism who was transferred from [place] with progressive decompensation likely related to myasthenia [...] <Electronically signed by MD Stanley Burt> 05/15/23 2842 [facility] Work Phone: 1([phone]) 168-232109-24-2023 Progress note Author Eliezer Newell [facility] May 14, 2023 6:05pm Note Date/Time May 14, 2023 5:59pm [facility] [address] [place] [address] Hospitalist Progress Note Signed Patient: Taurus Garcia MR#: [id number] : 1945 Acct:[id number] Age/Sex: 77 / M Adm Date: 3 Loc: Room: [address] [place] [address] Type: ADM IN Attending Dr: Eliezer Newell MD Copies to: ~ Date of Service: 05/14/2023 Subjective Subjective Narrative: Assessment And Plan 77M with PMH of HTN, HLD, Myasthenia Gravis (Dx 2016), CKD, PE(On Eliquis) who was admitted to [facility] 05/09 for generalized weakness. He was intubated there then transferred for the evaluation and treatment of suspected acute myasthenia gravis exacerbation. Acute Respiratory Failure due to Myasthenia gravis exacerbation remain on MV with low O2 demand The patient required intubation at [facility] CXR 05/11 shows Continued cardiomegaly and mild [...] Lactated Ringers IV 05/10/24 01:59 Not Given .[id number] DORI Immune Globulin 30 gm in 300 [...] 05/10/24 00:22 PROTOCOL PRN Bolus Documentation Pyridostigmine [place] 30 mg 05/14/23 14:00 05/14/23 13:41 Pyridostigmine [place] 60 Mg Tablet NG-TUBE 05/13/24 13:59 30 [...] . Documented By: Eliezer Newell MD 05/14/23 1183 Signed By: <Electronically signed by Eliezer Newell MD> 05/14/23 6702 [facility] Work Phone: [phone]) 413-186909-24-2023 Progress note Author Jamel Packer [facility] May 14, 2023 12:14pm Note Date/Time May 14, 2023 11:10am [facility] [address] [place] [address] Neurology Progress Note Signed Patient: Taurus Garcia MR#: [id number] : 1945 Acct:[id number] Age/Sex: 77 / M Adm Date: 3 Loc: Room: [address] [place] [address] Type: ADM IN Attending Dr: Eliezer Newell [...] <Electronically signed by Jamel Packer DO> 05/14/23 [facility]4 [facility] Work Phone: [phone]) [phone] Progress note Author Stanley Burt [facility] May 14, 2023 12:02pm Note Date/Time May 14, 2023 9:12am [facility] [address] [place], [place] [id number] Pulmonology Progress Note Signed Patient: Taurus Garcia MR#: [id number] : 1945 Acct:[id number] Age/Sex: 77 / M Adm Date: 3 Loc: Room: [address] [place] [address] Type: ADM IN Attending Dr: Eliezer Newell [...] Content 8.4 ABG Base Excess 7.1 H /17/01 Assessment/Plan Assessment/Plan (1) Acute respiratory failure with hypoxia: (2) Myasthenic crisis: (3) CKD (chronic kidney disease) stage 3, GFR 30-59 ml/min: (4) Obstructive sleep apnea: Plan Hospital day #4, ventilator day #4 for patient with history of myasthenia gravisas well as prior pulmonary embolism who was transferred from outside hospital ([place]) with progressive decompensation likely related to myasthenia gravis exacerbation. Patient's potassium is stable with patient getting day #4 of intravenous immunoglobulin today. Continue supportive care with patient alreadyon apixaban with nutritional support and stress ulcer prophylaxis. Note that cultures remain negative. Documented By: Stanley Burt MD 3 0910 Signed By: <Electronically signed by MD Stanley Burt> 05/14/23 120 [facility] Work Phone: [phone]) 589-764809-23-2023 Progress note Author Eliezer Newell [facility] May 13, 2023 6:40pm Note Date/Time May 13, 2023 5:41pm [facility] [address] [place], [place] [id number] Hospitalist Progress Note Signed Patient: Taurus Garcia MR#: [id number] : 1945 Acct:[id number] Age/Sex: 77 / M Adm Date: 3 Loc: Room: [address] [place] [address] Type: ADM IN Attending Dr: Eliezer Newell MD Copies to: ~ Date of Service: 05/13/2023 Subjective Subjective Narrative: Assessment And Plan 77M with PMH of HTN, HLD, Myasthenia Gravis (Dx 2016), CKD, PE(On Eliquis) who was admitted to [facility] 05/09 for generalized weakness. He was intubated there then transferred for the evaluation and treatment of suspected acute myasthenia gravis exacerbation. Acute Respiratory Failure due to Myasthenia gravis exacerbation remain on MV with low O2 demand The patient required intubation at [facility] CXR 05/11 shows Continued cardiomegaly and mild [...] Lactated Ringers IV 05/10/24 01:59 75 mls/hr .[id number] DORI Administration Immune Globulin 30 gm in [...] . Documented By: Eliezer Newell MD 05/13/23 0552 Signed By: <Electronically signed by Eliezer Newell MD> 05/13/23 1840 [facility] Work Phone: 1(444) 392-512109-23-2023 Progress note Author Stanley Burt [facility] May 13, 2023 1:31pm Note Date/Time May 13, 2023 10:36am [facility] [address] [place] [address] Pulmonology Progress Note Signed Patient: Taurus Gracia MR#: [id number] : 1945 Acct:[id number] Age/Sex: 77 / M Adm Date: 3 Loc: Room: [address] [place] [address] Type: ADM IN Attending Dr: Eliezer Newell MD Copies to: ~ Date of Service: 05/13/2023 Subjective Subjective Narrative: Patient received a second dose of intravenous immunoglobulin yesterday and was in the process of getting his third dose at the time of my evaluation today. His temperatures have been under fairly good control with [facility] sun with cultures negative to date with sputum revealing only light normal respiratory gee. Case was discussed at length with spouse who was at bedside. Exam Physical Exam Vital Signs: Temp Pulse Resp BP Pulse Ox O2 Del Method FiO2 99.0 F 65 14 165/74 H 94 L Mechanical Ventilation 30 05/13/23 10:00 05/13/23 10:05/13/23 10:05/13/23 10:00 05/13/23 10:00 05/13/23 10:05/13/23 10:00 Const Nutritional Appearance: obese Orientation: [...] embolism who was transferred from outside hospital ([facility]) with progressive decompensation likely related to myasthenia [...] signed by MD Stanley Burt> 05/13/23 1331 [facility] Work Phone: 1(617) 485-610609-23-2023 Progress note Author Jamel Packer [facility] May 13, 2023 1:04pm Note Date/Time May 13, 2023 1:04pm [facility] [address] [place] [address] Neurology Progress Note Signed Patient: Taurus Garcia MR#: [id number] : 1945 Acct:[id number] Age/Sex: 77 / M Adm Date: 3 Loc: Room: [address] [place] [address] Type: ADM IN Attending Dr: Eliezer Newell [...] look [facility] after completing his IVIG course. Code(s): G70.01 - Myasthenia gravis with (acute) exacerbation Status: Acute Documented By: Jamel Packer DO 05/13/23 1301 Signed By: <Electronically signed by Jamel Packer DO> 05/13/23 1304 [facility] Work Phone: 1(234) 552-979109-22-2023 Progress note Author Eliezer Newell [facility] May 12, 2023 6:48pm Note Date/Time May 12, 2023 3:45pm [facility] [address] [place] [address] Hospitalist Progress Note Signed Patient: Taurus Garcia MR#: [id number] : 1945 Acct:[id number] Age/Sex: 77 / M Adm Date: 3 Loc: Room: [address] [place] [address] Type: ADM IN Attending Dr: Eliezer Newell MD Copies to: ~ Date of Service: 05/12/2023 Subjective Subjective Narrative: Assessment And Plan 77M with PMH of HTN, HLD, Myasthenia Gravis (Dx 2017), CKD, PE(On Eliquis) who was admitted to [facility] 05/09 for generalized weakness. He was intubated there then transferred for the evaluation and treatment of suspected acute myasthenia gravis exacerbation. Acute Respiratory Failure remain on MV with low O2 demand The patient required intubation at [facility] CXR 05/11 shows Continued cardiomegaly and mild [...] Lactated Ringers IV 05/10/24 01:59 75 mls/hr .[id number] DORI Administration Immune Globulin 30 gm in [...] . Documented By: Eliezer Newell MD 05/12/23 154 Signed By: <Electronically signed by Eliezer Newell MD> 05/12/23 8025 [facility] Work Phone: 1(783) 867-502509-22-2023 Progress note Author Jamel Packer [facility] May 12, 2023 2:06pm Note Date/Time May 12, 2023 2:06pm [facility] [address] [place] [address] Neurology Progress Note Signed Patient: Taurus Garcia MR#: [id number] : 1945 Acct:[id number] Age/Sex: 77 / M Adm Date: 3 Loc: Room: [address] [place] [address] Type: ADM IN Attending Dr: Eliezer Newell [...] By: <Electronically signed by Jamel Packer DO> 05/12/231405 [facility] Work Phone: 1(724) 434-377809-22-2023 Progress note Author Stanley Burt [facility] May 12, 2023 11:21am Note Date/Time May 12, 2023 8:32am [facility] [address] [place] [address] Pulmonology Progress Note Signed Patient: Taurus Garcia MR#: [id number] : 1945 Acct:[id number] Age/Sex: 77 / M Adm Date: 3 Loc: Room: [address] [place] [address] Type: ADM IN Attending Dr: Eliezer Newell [...] embolism who was transferred from outside hospital ([facility]) with progressive decompensation likely related to myasthenia [...] signed by MD Stanley Burt> 05/12/23 1121 [facility] Work Phone: 1([phone]) 928-191909-22-2023 Progress note Author Eliezer Newell [facility] May 12, 2023 12:47am Note Date/Time May 11, 2023 4:12pm [facility] [address] [place] [address] Hospitalist Progress Note Signed Patient: Taurus Garcia MR#: [id number] : 1945 Acct:[id number] Age/Sex: 77 / M Adm Date: 3 Loc: Room: [address] [place] [address] Type: ADM IN Attending Dr: Eliezer Newell MD Copies to: ~ Date of Service: 05/11/2023 Subjective Subjective Narrative: Assessment And Plan 77M with PMH of HTN, HLD, Myasthenia Gravis(Dx 2016), CKD, PE (On Eliquis) who was admitted to [facility] 05/09 for generalized weakness. He was intubated there then transferred for the evaluation and treatment of suspected acute myasthenia gravis exacerbation. Acute respiratory failure The patient required intubation at [facility] CXR 05/11 shows Continued cardiomegaly and mild [...] Lactated Ringers IV 05/10/24 01:59 75 mls/hr .[id number] DORI Administration Immune Globulin 30 gm in 300 mls @ 0 mls/hr 05/11/23 09:00 05/11/23 09:53 Gammagard 10% 30 Gm/300 Ml IV 09/26/23 08:59 73 mls/hr DAILY DORI Administration Protocol [...] signed by Eliezer Newell MD> 05/12/23 0047 [facility] Work Phone: [phone]) 813-881609-21-2023 Consult note Author Jamel Packer [facility] May 11, 2023 1:53pm Note Date/Time May 11, 2023 12:06pm [facility] [address] [place] [address] Neurology Consult Note Signed Patient: Taurus Garcia MR#: [id number] : 1945 Acct:[id number] Age/Sex: 77 / M Adm Date: 3 Loc: Room: [address] [place] [address] Type: ADM IN Attending Dr: Eliezer Newell MD Copies to: DO Komal Bajwa II, MD Marwan Wassouf, MD~ HPI Consult Date: 05/11/23 Control Operator Flow Coat: Jamel Packer DO [facility] Medical History Acute exacerbation of myasthenia gravis [...] mg PO DAILY 12/27/17 [History Confirmed 05/10/23] mdjernwu-ztr-njqfx acid 0.4 mg-lycopene 300 mcg-lutein 250 mcg [...] Aide Moe M.D.05/11/2023 7:15 AM Dictation Location: [place] [address] Chest X-Ray 05/11/23 05:19 IMPRESSION: Continued cardiomegaly and mild parenchymal changes. Impression dictated by: Aide Moe M.D.05/11/2023 7:14 AM Dictation Location: [place] [address] Assessment/Plan (1) Myasthenic crisis: Assessment/Problem Details: CONSULT [...] pulmonary emboli on chronic Eliquis. Transferred from [facility]. Initially presented there on May 09, 2023 [...] with (acute) exacerbation Status: Acute Documented By: Jamle Packer DO 05/11/23 1201 Signed By: <Electronically signed by Jamel Packer DO> 05/11/23 2363 [facility] Work Phone: 1(430) 739-903209-21-2023 Consult note Author Lexy Chappell [facility] May 11, 2023 12:44pm Note Date/Time May 11, 2023 12:45pm [facility] [address] [place] [address] Pulmonology Consult Note Signed Patient: Taurus Garcia MR#: [id number] : 1945 Acct:[id number] Age/Sex: 77 / M Adm Date: 3 Loc: Room: [address] [place] [address] Type: ADM IN Attending Dr: Eliezer Newell [...] history of pulmonary emboli who presented to [facility] with weakness, swallowing difficulties, and shortness of [...] of systems: As mentioned above otherwise unremarkable [facility] Medical History Acute exacerbation of myasthenia gravis [...] mg PO DAILY 12/27/17 [History Confirmed 05/10/23] qemgwujs-zrb-vielm acid 0.4 mg-lycopene 300 mcg-lutein 250 mcg [...] signed by Lexy Chappell MD> 05/11/23 1244 [facility] Work Phone: 1([phone]) 747-869109-21-2023 History and physical note Author Jarret Garza [facility] May 11, 2023 1:33am Note Date/Time May 11, 2023 1:07am [facility] [address] [place] [address] Hospitalist H&P Signed Patient: Taurus Garcia MR#: [id number] : 1945 Acct:[id number] Age/Sex: 77 / M Adm Date: 3 Loc: Room: [address] [place] [address] Type: ADM IN Attending Dr: Jarret Garza MD Copies to: MD Jarret Gonsalves II, MD~ HPI DATE OF EXAMINATION: 05/11/23 CHIEF COMPLAINT: Acute exacerbation of myasthenia gravis HISTORY OF PRESENT ILLNESS: Patient is a 77-year-old male with 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 Patient presented to [facility] on 05/09/2023 complaining of weakness over3 days [...] his airway secretions, patient was intubated at [facility]. They reached outto our neurology service and [...] mg PO DAILY 12/27/17 [History Confirmed 05/10/23] updmxrgq-hjz-tjppf acid 0.4 mg-lycopene 300 mcg-lutein 250 mcg [...] no leukocytosis from most recent labs at [facility]. Repeat labs in am -Will start antibiotics [...] 5 Documented By: Jarret Garza MD 05/11/23 01 06 Signed By: <Electronically signed by Jarret Garza MD> 05/11/23 0133 [facility] Work Phone: 1([phone]) 364-113902-28-2023 History of Present illness Narrative* Addison Vick MD - 10/18/2022 12:48 PM EST Physician Progress Note PATIENT: [facility] #: [id number] : 1945 ADMIT DATE: 10/15/2022 6:59 PM [...] any questions. Danie Maldonado RN, CDS cell- [phone] office hours - [phone] Options provided: -- [...] patches multiple times this shift. When this senior underwriter went to pt room due to telemonitor [...] there is no need to wear it. director of hemophilia [employer] SETTER for hospitalist group notified. * Colten Rosen RCP - 10/17/2022 9:43 PM EST Pt has own CPAP machine from home Unit was checked. 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 [facility] Office: [phone] Dharmesh Barbosa DO, Taurus Hoover DO, Jae Vela DO, Aaron Dobson DO, Tu Diallo MD, Marisabel Roldan MD, Tiara Chambers MD, Lena Guerra MD, Honorio Vuong MD, Addison Vick MD, Caleb Espinoza DO, Enrico Myers MD, Shae Sanches DO, Eliel Rizzo MD, Maulik Regan MD, Danie Barbosa DO, Gracia Altamirano MD, Uziel Nebsitt MD, Real De La Cruz, DO, Haven Uribe MD, Nicolle Barros MD, Risa Chawla MD, Diann Vang MD, Stanley Valdes DO, Viri Sesay MD, Israel Lara MD, Marcelle Decker, TIRE GROOVER, Adore Fraga, TIRE GROOVER, Jolly Cardona, TIRE GROOVER, Komal Bauer, TIRE GROOVER, Malaika Ortiz, [facility], Cynthia Amado, TIRE GROOVER, Dee Lazo, TIRE GROOVER, Joana Ponce, TIRE GROOVER, Mookie Castro, TIRE GROOVER, Teresita Robb, TIRE GROOVER, Jarrod Ladd PA-C, Eliza Majano, MINE PATROL, Susanne Mock, TIRE GROOVER, Jaja Stanton, TIRE GROOVER [facility] IN-PATIENT SERVICE [facility] Progress Note 10/17/2022 11:11 AM Name: Taurus Garcia Acct: [id number] Room: [address] [place] [address] Day: 2 Admit Date: 10/15/2022 6:59 PM [...] post TURBTx2, BCG therapy who presented to [facility] 10/13 with penile bleeding/suspected Smith trauma with BCG installation status post Smith placement, and discharged home. Patient returned to [facility] earlier today with fevers with suspected sepsis with Smith associated UTI and recommended for transfer to [facility] for urologic evaluation Status post [...] No results for input(s): PROT, LABALBU, LABA1C, M9IKBQP, I1PFBDU, FT4, TSH, AST, ALT, LDH, GGT, ALKPHOS, LABGGT, BILITOT, BILIDIR, AMMONIA, AMYLASE, LIPASE, LACTATE, CHOL, HDL, LDLCHOLESTEROL, CHOLHDLRATIO, TRIG, VLDL, RYL44GJ, PHENYTOIN, PHENYF, URICACID, POCGLU in the last 72 hours. ABG:No results found for: POCPH, PHART, PH, POCPCO2, MWM7GCJ, PCO2, POCPO2, PO2ART, PO2, POCHCO3, TNO1EGI, HCO3, NBEA, PBEA, BEART, BE, THGBART, THB, ZFC7DIF, KXMR5AGH, G6ZYDFHV, O2SAT, FIO2 No results found for: SPECIAL [...] Yes Acute weakness 10/16/2022 Yes Myasthenia gravis ([facility]) 10/16/2022 Yes JAMISON (obstructive sleep apnea) 10/16/2022 Yes Current chronic use of systemic steroids 10/16/2022 Yes Type 2 diabetes mellitus with diabetic neuropathy, without long-term current use of insulin ([facility]) 10/16/2022 Yes Morbid obesity ([facility]) 10/16/2022 Yes Hyponatremia 10/16/2022 Yes Hypokalemia 10/16/2022 Yes Acute retention of urine 10/16/2022 Yes Hypomagnesemia 10/16/2022 Yes Hypocalcemia 10/16/2022 Yes CRP elevated 10/17/2022 Yes Elevated procalcitonin 10/17/2022 Yes Bandemia 10/17/2022 Yes SIRS (systemic inflammatory response syndrome) ([facility]) 10/17/2022 Yes Plan: Acute fever, possible sepsis Negative urine culture so far Empiric Cefepime Elevated CRP/Pro calcitonin Hematuria and fever could be superinfection versus BCG-itis ID following Diarrhea - likely from antibiotics Probiotics Imodium with some improvement Bladder cancer s/p TURBTx2, recently started on BCG installation Smith inserted due to retention, possible removal today [...] were not included. [facility] - Infectious diseases evaluation admission date [...] to the BCG instillation Infection Control Recommendations Plover Precautions Contact Isolation Antimicrobial Stewardship Recommendations Simplification of therapy Targeted therapy History of Present Illness: Initial history: Taurus Garcia is a 77 y.o.-year-old male transferred from [facility] because of sepsis. He has a history of BCG due to high-grade known muscle invasive bladder cancer, post TURBT x2 his last BCG was 10/13/2022 They noticed some bleeding from the urethra after the BCG installation and hence came to [facility], they thought it might be from the prior Smith, so another Smith was placed and was discharged home. That he came back with fatigue malaise fever chills. There was a concern for urosepsis and urine analysis was abnormal. He was sent to [facility] Interval changes 10/17/2022 Patient Vitals for the past 8 hrs: Weight 10/17/22 0600 (!) 318 lb 7 oz (144.4 kg) 10/17 Afebrile, vitals stable UA many WBC, nitrate and small leukocyte esterase Complaining of diarrhea overnight, liquid BM every 45 min, no foul smell Summary of relevant labs: Labs: Platelet, Txkjbimnhudj986 WBC6.3 CRP86.3 High Procalcitonin0.20 High Micro: U [...] file. Medications: lactobacillus 1 capsule Oral BID apixaban 5 mg Oral BID amLODIPine 5 [...] Keiko Jc Office: Perfect serve / office [phone] I have discussed the care of the [...] from the original note were not included. [facility] Office: [phone] Dharmesh Barbosa DO, Taurus Hoover DO, Jae [...] Komal Bauer CNP, Malaika Ortiz DNP, Cynthia Amado, GM, Dee Lazo CNP, Joana Ponce CNP, Mookie Castro CNP, Teresita Robb CNP, Jarrod Ladd PA-C, Eliza Majano, MINE PATROL, Susanne Mock, TIRE GROOVER, Jaja Stanton, TIRE GROOVER [facility] IN-PATIENT SERVICE [facility] Progress Note 10/16/2022 11:27 AM Name: Taurus Garcia Acct: [id number] Room: [address] [place] [address] Day: 1 Admit Date: 10/15/2022 6:59 PM [...] post TURBTx2, BCG therapy who presented to [facility] 10/13 with penile bleeding/suspected Smith trauma with BCG installation status post Smith placement, and discharged home. Patient returned to [facility] earlier today with fevers with suspected sepsis with Smith associated UTI and recommended for transfer to [facility] for urologic evaluation Patient describes [...] Smith with decompression. Patient did return to [facility] ED earlier today with persistent malaise [...] No results for input(s): PROT, LABALBU, LABA1C, J6YEGOR, J6TARXL, FT4, TSH, AST, ALT, LDH, GGT, ALKPHOS, LABGGT, BILITOT, BILIDIR, AMMONIA, AMYLASE, LIPASE, LACTATE, CHOL, HDL, LDLCHOLESTEROL, CHOLHDLRATIO, TRIG, VLDL, IUR15FE, PHENYTOIN, PHENYF, URICACID, POCGLU in the last 72 hours. ABG:No results found for: POCPH, PHART, PH, POCPCO2, YVJ2EFD, PCO2, POCPO2, PO2ART, PO2, POCHCO3, CSR5YKA, HCO3, NBEA, PBEA, BEART, BE, THGBART, THB, THB6HHJ, ZAOV6CEF, A2NCTVCM, O2SAT, FIO2 No results found for: SPECIAL [...] EST Pharmacy Note Enoxaparin Dose Adjustment Taurus Garica is a 77 y.o. male. Pharmacist assessment [...] to 30mg subq BID Nena Porras PharmD BCPS BCCCP 10/16/2022 11:08 AM documented in [facility] [employer] Work Phone: 1([phone]) 974-914802-28-2023 Hospital course Narrative* Addison Vick MD - 10/18/2022 12:10 PM EST Images from the original note were not included. [facility] Office: [phone] Dharmesh Barbosa DO, Taurus Hoover DO, Jae [...] MD, Nicolle Barros MD, Risa Chawla MD, Dainn Vang MD, Stanley Valdes DO, Viri Sesay MD, Israel Lara MD, Marcelle Decker, TIRE GROOVER, Adore Fraga, TIRE GROOVER, oJlly Cardona, TIRE GROOVER, Komal Bauer, TIRE GROOVER, Malaika Ortiz DNP, Cynthia Amado, TIRE GROOVER, Dee Lazo, TIRE GROOVER, Joana Ponce, [facility], Mookie Castro, TIRE GROOVER, Teresita Robb, [facility], Jarrod Ladd PA-C, Eliza Majano, VENT[facility], Susanne Mock, TIRE GROOVER, Jaja Stanton [facility] IN-PATIENT SERVICE [facility] Discharge Summary Patient ID: Taurus Garcia : 1945 ACCOUNT: [id number] Patient's PCP: Komal Schaffer MD Admit Date: [...] Physician Follow Up: Komal Schaffer MD [address] [facility] [address] [facility] [address] Follow up in 1 week(s) your urologist [...] this patient's care. 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 Any problems you or family members [...] provider tells you to take them. Taking dmnz-uea-ihgcxai medicines, vitamins, herbs, and supplements. Tests You [...] 06/03/2010 Document Revised: 03/08/2019 Document Reviewed: 03/08/2019 [employer] Patient Education 2020 CheckInOn.Me. Follow Up Care 03/03/2022 14:58:42 With:Autumn Molina MD, Yoko Hair URO Address: [facility] [address] [place] [address]- [phone] When: Unknown Comments:schedule Cysto/TURBT and CT [facility] 07-14-2022 Hospital Discharge instructions Patient Education 03/03/2022 11:28:54 Post Op Patient Instructions - FT (CUSTOM) Follow Up Care 02/09/2022 11:58:15 With:Yoko Leyva Address: [facility] [address] [place] [address]- Business (1) When:2 to 4 weeks Comments:Reviewed pathology report and plan exudative treatment.Call for any problems.Call for followup appointment [facility]07-05-2022 Note [id number]:127[facility] 02-01-2022 Hospital Discharge instructions Patient Education [...] cells. Follow these instructions at home: Take ybrm-jmc-oobobin and prescription medicines only as told by [...] is important. Where to find more information [place] [employer]: www.cancer.org National Cancer [place] (NCI): www.cancer.gov Contact a health care provider [...] 08/09/2004 Document Revised: 07/20/2018 Document Reviewed: 07/11/2017 [employer] Patient Education 2020 [employer] Inc. [facility] 05-09-2022 Hospital Discharge instructions Patient [...] Follow these instructions at home: Medicines Take rofu-eby-jlgwdob and prescription medicines only as told by [...] or the blood stops without treatment. Take ivoe-oqf-ycwfvyl and prescription medicines only as told by your health care provider. Drink enough fluid to keep your urine clear or pale yellow. This information is not intended to replace advice given to you by your health care provider. Make sure you discuss any questions you have with your health care provider. Document Released: 08/07/2006 Document Revised: 01/01/2020 Document Reviewed: 09/09/2017 [employer] Patient Education 2020 CheckInOn.Me. Follow Up Care 12/07/2021 14:21:16 With:Autumn Molina MD, Yoko Hair URO Address: [facility] [address] , [place] [address]- When: Unknown Comments:schedule follow up after TURBT [facility] 04-19-2022 Hospital Discharge instructions Patient Education [...] Follow these instructions at home: Medicines Take tugc-kiw-blvhtui and prescription medicines only as told by [...] or the blood stops without treatment. Take xrti-hzq-xdaflqj and prescription medicines only as told by your health care provider. Drink enough fluid to keep your urine clear or pale yellow. This information is not intended to replace advice given to you by your health care provider. Make sure you discuss any questions you have with your health care provider. Document Released: 08/07/2006 Document Revised: 01/01/2020 Document Reviewed: 09/09/2017 [employer] Patient Education 2020 CheckInOn.Me. Follow Up Care 11/05/2021 14:25:01 With:Autumn Molina MD, Yoko Hair, URO Address: [facility] [address] [place] [address]- [phone] When: Unknown [facility] discharge summary Author Chau Lara [facility] May 21, 2023 12:26pm Note Date/Time May 21, 2023 12 :23pm [facility] [address] [place] [address] Discharge Summary Signed Patient: Taurus Garcia MR#: [id number] : 1945 Acct:[id number] Age/Sex: 77 / M Adm Date: 3 Loc: Room: [address] [place] [address]: Chau Lara MD Copies to: MD Chau Gonsalves II, MD~ Providers Date of Discharge: 05/21/23 Discharging Provider: Chau aLra Primary Care Provider: Komal Schaffer Consults: 05/11/23 [...] CKD, PE(On Eliquis) who was admitted to [facility] 05/09 for generalized weakness. He was intubated [...] Discharge Plan Discharge Plan Patient Disposition: Rehab [facility] Additional Instructions: Inpatient Rehab to manage care: [...] signed by Chau Lara MD> 05/21/23 1226 [facility] Work Phone: Evaluation + Plan note Future Appointments Appointment Date:12/27/2021 01:00:00 PM Scheduled Provider:Yoko Leyva Jr., MD Location:[facility] Appointment Type:URO Procedure 15 min Diagnostic Tests Pending * UroVysion Fish and Urine Cyto ([facility]) 12/07/21 * Uro[facility]ysion Fish and Urine Cyto ([facility]) 12/07/21 [facility] evaluation + Plan note Future Appointments Appointment Date:02/01/2022 10:30:00 AM Scheduled Provider:Yoko Leyva Jr., MD Location:[facility] Appointment Type:URO Office Visit [facility] evaluation + Plan note Future Appointments Appointment Date:02/01/2022 10:30:00 AM Scheduled Provider:Yoko Leyva Jr., MD Location:[facility] Appointment Type:URO Office Visit Diagnostic Tests Pending * [facility] Appointment Date:03/03/2022 11:00:00 AM Scheduled Provider: Location:[facility] Appointment Type:Surgery FT Diagnostic Tests Pending * [facility] Future App[facility]ments Appointment Date:03/29/2022 11:00:00 AM Scheduled Provider:Yoko Leyva Jr., MD Location:[facility] Appointment Type:URO Office Visit [facility] note* Diagnosis Malignant neoplasm of overlapping sites of bladder (HCC)- Primary Malignant neoplasm of other specified sites of bladder documented in this encounter [facility] note* Diagnosis Screening for genitourinary condition Screening for other and unspecified genitourinary condition documented in this encounter [facility] noteNo assessment [facility] Work Phone: Evaluation [facility]* Diagnosis Fever, unspecified- [...] response syndrome, unspecified [facility]* Diagnosis Onset Date [...] (urinary tract infection) due to Enterococcus acute [facility] Work Phone: Evaluation note* Diagnosis Onset [...] Oropharyngeal dysphagia acut e Pulmonary emboli acute [facility] Work Phone: Evaluation note* Diagnosis Paroxysmal atrial fibrillation (CMS/HCC) Atrial fibrillation Pulmonary embolism, unspecified chronicity, unspecified pulmonary embolism type, unspecified whether acute cor pulmonale present ([facility]) Myasthenia gravis ([facility]) Myasthenia gravis without exacerbation High risk medication use Essential hypertension Unspecified essential hypertension Mixed hyperlipidemia Morbid obesity with BMI of 45.0-49.9, adult ([facility]) documented in this encounter [facility] Work Phone: Evaluation note* Diagnosis Bilateral leg weakness- Primary Muscle weakness (generalized) Difficulty walking Difficulty in walking Right leg pain Pain in soft tissues of limb documented in this encounter [facility]* Diagnosis Type 2 diabetes mellitus with diabetic neuropathy, without long-term current use of insulin (CMS/HCC)- Primary Benign essential hypertension (CMS/HCC) Essential hypertension, benign Paroxysmal atrial fibrillation (CMS/HCC) Atrial fibrillation documented in this encounter [facility]* Diagnosis Bilateral leg weakness- Primary Muscle weakness (generalized) Difficulty walking Difficulty in walking Right leg pain Pain in soft tissues of limb documented in this encounter [facility]* Diagnosis Bilateral leg weakness- Primary [...] neuropathy, without long-term current use of insulin ([facility]) Type 2 diabetes 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, without long-term current use of insulin ([facility]) Myasthenia gravis without (acute) exacerbation (G70.00) Atherosclerosis of [place] artery of both lower extremities with intermittent claudication ([facility]) Morbid (severe) obesity due to excess calories (E66.01) Body mass index [BMI] 45.0-49.9, adult (Z68.42) documented in this encounter [facility]* Diagnosis Myasthenia gravis (CMS/HCC)- Primary Myasthenia gravis without exacerbation Class 3 severe obesity due to excess calories with serious comorbidity and body mass index (BMI) of 45.0 to 49.9 in adult ([facility]) documented in this encounter [facility]* Diagnosis 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cosis of toenails of both feet- Primary Venous insufficiency Unspecified venous (peripheral) insufficiency documented in this encounter [facility]* Diagnosis Onset Date Resolution Status Acute hypokalemia acute Dyspnea acute Generalized weakness acute [facility] Work Phone: Evaluation note* Diagnosis Onset Date Resolution Status Acute exacerbation of myasthenia gravis acute Acute hypokalemia acute Dyspnea acute Generalized weakness acute History of pulmonary embolism acute JAMISON on CPAP acute Acute exacerbation of myasthenia gravis acute Dyspnea acute Generalized weakness acute History of pulmonary embolism acute JAMISON on CPAP acute [facility] Work Phone: Evaluation note* Diagnosis Cervical stenosis of spinal canal Spinal stenosis in cervical region documented in this encounter [facility]* Diagnosis Myasthenia gravis (CMS/HCC) Myasthenia gravis without exacerbation 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cosis of toenails of both feet- Primary Venous insufficiency Unspecified venous (peripheral) insufficiency documented in this encounter [facility]* Diagnosis Myasthenia gravis ([facility]/HCC)- Primary Myasthenia gravis without exacerbation Acute on chronic right-sided heart failure ([facility]/HCC) documented in this encounter [facility]* Diagnosis Myasthenia gravis (CMS/HCC)- Primary Myasthenia gravis without exacerbation Type 2 diabetes mellitus with diabetic neuropathy, without long-term current use of insulin ([facility]) Myasthenic crisis ([facility]) Other specified myoneural disorders Generalized weakness Benign essential hypertension ([facility]/HCC) Essential hypertension, benign Localized edema Edema Impaired mobility and activities of daily living Dyspnea on exertion Other dyspnea and respiratory abnormality Malignant neoplasm of overlapping sites of bladder (CMS/HCC) Chronic respiratory failure with hypoxia ([facility]) Type 2 diabetes mellitus with diabetic chronic kidney disease ([facility]) Chronic kidney disease, stage 2 (mild) Paroxysmal atrial fibrillation ([facility]) Atrial fibrillation Morbid (severe) obesity due to excess calories ([facility]) Body mass index (BMI) 45.0-49.9, adult ([facility]) documented in this encounter [facility]* Diagnosis Benign essential hypertension ([facility]/HCC)- Primary Essential hypertension, benign Yeast dermatitis Bradycardia Other specified cardiac dysrhythmias documented in this encounter [facility]* Diagnosis Paroxysmal atrial fibrillation (Multi)- Primary Atrial fibrillation High risk medication use documented in this encounter [facility] Work Phone: Evaluation note* Diagnosis Localized edema- Primary Edema Essential hypertension Unspecified essential hypertension BMI 45.0-49.9, adult (Multi) Paroxysmal atrial fibrillation (Multi) Atrial fibrillation documented in this encounter [facility] Work Phone: Evaluation note* Diagnosis 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cosis of toenails of both feet- Primary Venous insufficiency Unspecified venous (peripheral) insufficiency documented in this encounter [facility]* Diagnosis Laceration of lesser toe of left foot without foreign body present, nail damage status unspecified, initial encounter- Primary Closed nondisplaced fracture of distal phalanx of left great toe, initial encounter documented in this encounter [facility]* Diagnosis Fall, subsequent encounter- Primary Decreased mobility Weakness Other malaise and fatigue Pain Generalized pain documented in this encounter [facility]* Diagnosis Laceration of lesser toe [...] Localized edema Edema documented in this encounter [facility] Work Phone: Evaluation note* Diagnosis Pain due [...] [facility] Diagnosis 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cosis of toenails of both feet- Primary Venous insufficiency Unspecified venous (peripheral) insufficiency [facility]* Diagnosis Pain Generalized pain Need for vaccination Need for prophylactic vaccination and inoculation against unspecified single disease documented [facility] encounter [facility] Author Mateo Horne [facility] June 19, 2024 2:37pm Note Date/Time June 19, 2024 2 :37pm [facility] [address] [place] [address] Hospitalist H&P Signed Patient: Taurus Garcia MR#: [id number] : 1945 Acct:[id number] Age/Sex: 78 / M Adm Date: 4 Loc: Room: 1D6012-4 Type: ADM IN Attending Dr: Mateo Horne [...] Year ago, inSeptember, he presented to the [facility] emergency room and had to be intubated. [...] except as mentioned elsewhere in the documentation. [facility] Medical History (Updated 06/19/24 @ 14:33 by [...] mg PO DAILY 12/27/17 [History Confirmed 06/19/24] fnewzdts-gzu-hntex acid 0.4 mg-lycopene 300 mcg-lutein 250 mcg [...] % (Auto) 27.5 % (.) 06/19/24 09:49 Walton % (Auto) 11.3 % (.) 06/19/24 09:49 Eos % (Auto) 1.2 % (.) 06/19/24 09:49 Baso % (Auto) 1.0 % (.) 06/19/24 09:49 Nucleat RBC Rel Count 0.1 /100 WBC (0-0.5) 06/19/24 09:49 Neut # (Auto) 5.1 x10E3/uL (1.8-7.7) 06/19/24 09:49 Lymph # (Auto) 2.4 x10E3/uL (1.00-4.8) 06/19/24 09:49 Walton # (Auto) 1.0 x10E3/uL (0.0-0.8) H 06/19/24 [...] signed by Mateo Horne DO> 06/19/24 1437 [facility] Work Phone: History and physical note Author Denzel Zamora [facility] Note Date/Time September 11, 2024 4 :18pm [facility] [address] [place] [address] Hospitalist H&P Signed Patient: Taurus Garcia MR#: [id number] : 1945 Acct:[id number] Age/Sex: 78 / M Adm Date: 5 Loc: Room: [address] [place] [address] Type: ADM IN Attending Dr: Denzel Zamora [...] and planned nerve block, recent admission to skilled nursing after admission in 07/2024for weakness, presented to [facility] with shortness of breath concerning for myasthenia [...] arthralgias Neurologic: no loss of motor function [facility] Medical History Chronic back pain Chronic anticoagulation [...] mg PO DAILY 12/27/17 [History Confirmed 09/11/24] earoaohp-zwf-fimhw acid 0.4 mg-lycopene 300 mcg-lutein 250 mcg [...] and planned nerve block, recent admission to skilled nursing after admission in 07/2024for weakness, presented to [facility] with shortness of breath concerning for myasthenia [...] signed by Denzel Zamora MD> 09/11/24 1618 [facility] Work Phone: History of Present illness [...] medication regimen. He denies medication side effects. [facility] 250 DO Work Phone: History of Present [...] medication regimen. He denies medication side effects. [facility] 600 DO Work Phone: Hospital course Narrative No data available for this section [facility] Hospital Discharge instructions No data available for this section [facility] Hospital Discharge instructions Additional Instructions Inpatient [...] unable to urinate, smith catheter removed on [facility] Work Phone: Hospital Discharge instructions Additional Instructions Call Dr. Saunders's office tomorrow [facility] are [facility] Work Phone: Progress note No data available for this section [facility] progress note Author Silvestre Grover [facility] June 10, 2023 9:35am Note Date/Time June 10, 2023 9 :35am [facility] [address] [place] [address] Physiatry(Rehab) Progress Note Signed Patient: Taurus Garcia MR#: [id number] : 1945 Acct:[id number] Age/Sex: 77 / M Adm Date: 3 Loc: Room: [address] [place] [address] Type: ADM IN Attending Dr: Silvestre Grover MD Copies to: ~ Date of Service: 06/09/2023 Subjective Subjective Narrative: Mr. Garcia is a 77 year old male with past medical history of myasthenia gravis,hypertension, A-fib anticoagulated with Eliquis, PE, CKD, obstructive sleep apnea on BiPAP, who presents to acute inpatient rehab with functional impairments due to MG crisis. Patient presented to [facility] on 05/11/2023 with complaints of worseninggeneralized weakness over the course of several days. He was found to be mildlyhypoxic. Also complaining of urinary symptoms. Initially admitted to [facility] for observation however developed worsening respiratory status with increased secretions and inability to protect own airway and was subsequently intub[facility] Patient received a [...] Tablet PO 05/21/24 08:59 200 mg QAM ODRI Administration Apixaban 5 mg 05/21/23 17:30 06/10/23 05:26 Apixaban 5 Mg Tablet PO 05/20/24 17:29 5 mg Q12H DORI Administration Atorvastatin Calcium 20 mg 05/21/23 22:00 06/09/23 20:47 Atorvastatin 20 Mg Tablet PO 05/20/24 21:59 20 mg HS DORI Administration Bisacodyl 10 mg 05/21/23 14:25 Bisacodyl 10 Mg Supp.Rect TX 05/20/24 14:24 DAILY PRN Constipation Docusate Sodium 100 mg 05/21/23 14:25 Docusate 100 Mg Capsule PO 05/20/24 14:24 BID PRN Constipation Docusate Sodium 283 mg 05/21/23 14:25 Docusate Enema 283 Mg/5 Ml Enema TX 05/20/24 14:24 DAILY PRN Constipation Fish Oil 1,000 mg 05/21/23 21:00 06/10/23 09:09 [place]-3/Fish Oil 1,000 Mg Capsule PO 05/20/24 20:59 [...] 05/31/24 08:59 Not Given DAILY DORI Pyridostigmine [place] 60 mg 05/21/23 18:00 06/10/23 09:09 Pyridostigmine [place] 60 Mg Tablet PO 05/20/24 17:59 60 [...] impairments secondaryto myasthenic crisis. Initially admitted to [facility]. Had to be [...] equipment to enhance the patient's a functional jewish Ensure adequate nutrition and hydration Sleep: No concerns. Pain: Continue current regimen Discharge planning: Hopefully home with his tomorrow. Plan: I completed a substantive portion of this encounter, the medical decision makingportion of this note in its entirety, including Allied health note review, nursing note review, community health consultant note review, discussion with nursing and case management, and more than 50% of my time was spent on counseling and coordination of care, time spent 25 minutes Patient was personally seen by me, Dr. Grover, on the day of encounter, reviewed the history and the relevant portions of the chart, including current orders, allied health and community health consultant notes, labs/imaging and performed garcia elements of exam and I formulated the plan of care and facilitated the medical decision making. Documented By: Silvestre Grover MD 06/10/2334 Signed By: <Electronically signed by Silvestre Grover MD> 06/10/23934 [facility] Work Phone: Reason for referral (narrative)* Consultation (Routine) - Authorized Specialty Diagnoses / Procedures Referred By Contac t Referred To Contact Cardiology Diagnoses Paroxysmal atrial fibrillation (CMS/HCC) Essential hypertension Mixed hyperlipidemia Procedures Follow Up In Cardiology Baltazar Hoover DO [address] [facility] [address], [address] [address] Baltazar Hoover DO [address] [place] [address] 2, [address] [address] Referral ID Status Reason Start Date Expiration Date V isits Requested Visits Authorized [id number] Authorized 09/20/2023 09/19/2024 1 1 * Cardiovascular (Routine) - Authorized Specialty Diagnoses / Procedures Referred By Contac t Referred To Contact Diagnoses Paroxysmal atrial fibrillation (CMS/HCC) Procedures ECG 12 Lead Baltazar Hoover DO [address] [facility] [address], [address] [address] Referral ID Status Reason Start Date Expiration Date V isits Requested Visits Authorized [id number] Authorized 09/20/2023 09/19/2024 1 1 * Cardiovascular (Routine) - Pending Review Specialty Diagnoses / Procedures Referred By Contac t Referred To Contact Cardiology Diagnoses Paroxysmal atrial fibrillation (CMS/HCC) Procedures Holter Or Event Gas Engineer Baltazar Hoover DO [address] [facility] [address], [address] [address] Referral ID Status Reason Start Date Expiration Date V isits Requested Visits Authorized [id number] Pending Review 09/20/2023 09/19/2024 1 1 * Consultation (Routine) - Authorized Specialty Diagnoses / Procedures Referred By Contac t Referred To Contact Cardiology Diagnoses Paroxysmal atrial fibrillation (CMS/HCC) Procedures Follow Up In Cardiology Baltazar Hoover DO [address] [facility] 2, [address] [address] Willy Leyva, PATIENT FINANCIAL COUNSELOR-TIRE GROOVER [address] [facility] 2, [address] [address] Referral ID Status Reason Start Date Expiration Date V isits Requested Visits Authorized [id number] Authorized 09/20/2023 09/19/2024 1 1 [facility] Work Phone: Reason for referral (narrative)No reason for referral information [facility] Work Phone: Summary Purpose Family History Relationship Condition Age at Onset [...] neoplasm Unknown father Hypertension Unknown Advance Directives Advance Directive Response Recorded Date/ [...] 2024 4:47pm GERD (gastroesophageal reflux disease) D ec2023 4:47pm History of pulmonary embolism July 282023 [...] 1:25pm Myasthenia gravis May 05, 2025 1:25pm Chief Complaint * Annual f/u: 'doing good' [...] section and content) DATE CREATED AUTHOR 02/07/2018 [facility] DATE CREATED AUTHOR AUTHOR'S ORGANIZ ATION 09/01/2021 [employer] DATE CREATED AUTHOR AUTHOR'S ORGANIZ ATION 01/21/2022 [facility] DATE CREATED AUTHOR AUTHOR'S ORGANIZ ATION 02/12/2022 [facility] DATE CREATED AUTHOR AUTHOR'S ORGANIZ ATION 07/28/2022 [facility] DATE CREATED AUTHOR AUTHOR'S ORGANIZ ATION 10/19/2022 [facility] DATE CREATED AUTHOR AUTHOR'S ORGANIZ ATION 05/26/2023 [facility] DATE CREATED AUTHOR AUTHOR'S ORGANIZ ATION 09/24/2023 [facility] DATE CREATED AUTHOR AUTHOR'S ORGANIZ ATION 11/10/2024 [facility] DATE CREATED AUTHOR AUTHOR'S ORGANIZ ATION 01/18/2025 [facility] DATE CREATED AUTHOR AUTHOR'S ORGANIZ ATION 03/03/2025 [facility] DATE CREATED AUTHOR AUTHOR'S ORGANIZ ATION 04/13/2025 [facility] DATE CREATED AUTHOR AUTHOR'S ORGANIZ ATION 04/26/2025 [facility] EPIC DATE CREATED AUTHOR AUTHOR'S ORGANIZ ATION 05/01/2025 [facility] Care Team (unrecognized sect ion and content) [...] Attending Provider Active Start: February 13, 2025 Jamel Packer DO Other [...] Active Ivan Barnhart MD Attending Provider Active Head Setter Relationship Specialty Start Date End Date Komal Schaffer II [address] [place] [address] PCP - General Internal Medicine 12/05/16 Head Setter Relationship Specialty Start Date End Date Komal Schaffer II [address] [place] [address] PCP - General Internal Medicine 12/05/16 Head Setter Relationship Specialty Start Date End Date Komal Schaffer MD [address] [place] [address] PCP - General Internal Medicine 10/14/22 Team [...] DO Other Provider Active Nikole Mosqueda , PATIENT FINANCIAL COUNSELOR Other Provider Active Rubia Henning , LETTERPRESS SETTER-C Other Provider Active Mookie Tamayo , PATIENT FINANCIAL COUNSELOR-BUSINESS TECHNOLOGY ANALYST-C Other Provider Active Silvestre Grover MD Other Provider Active Donita Armstrong , PATIENT FINANCIAL COUNSELOR ACNP-BC Other Provider Active Lexy Chappell MD [...] Grover MD Admit Provider, Attending Provider A michelle Potter , HEATHER Other Provider Active Melva Mendoza , HEATHER Other Provider Active Cassi Lo , RN Other Provider Active Rocio Renner , RN Other Provider Active Alessia Justin , RN Other Provider Active Chayito Leone , HEATHER Other Provider Active Kevin Leo MD Other Provider Active Sudhakar Leon , PATIENT FINANCIAL COUNSELOR Other Provider Active Meri Blanco , DO [...] MD Other Provider Active Candida Perez , LETTERPRESS SETTER-C Other Provider Active Kushal Vizcarra MD Other Provider Active Torsten Burdick MD Other Provider Active Dudley Leon MD Other Provider Active Markus Johnson MD Other Provider Active Sofia Martinez , DO Other Provider Active Zia Duncan , DO Other Provider Active Rodolfo Temple , DO Other Provider Active Susanne Sharma , PATIENT FINANCIAL COUNSELOR Other Provider Active Dru Reveles , DO Other Provider Active Jarret Garza MD Other Provider Active Yuki Leyva , PATIENT FINANCIAL COUNSELOR Other Provider Active Queenie Shepherd , PATIENT FINANCIAL COUNSELOR Other Provider Active Suraj Razo MD Other Provider Active Komal Albright MD Other Provider Active Angelia Gamez , PATIENT FINANCIAL COUNSELOR Other Provider Active Mariana Xiong , HEATHER Other Provider Active Head Setter Relationship Specialty Start Date End Date Komal Schaffer MD [address] [place] [address] PCP - General 05/18/23 Head Setter Relationship Specialty Start Date End Date Komal Schaffer MD [address] [place] [address] PCP - General Internal Medicine 01/02/23 Komal Schaffer MD [address] [place] [address] PCP - ACO Reach 01/12/23 Head Setter Relationship Specialty Start Date End Date Komal Schaffer MD [address] [place] [address] PCP - General Internal Medicine 01/02/23 Komal Schaffer MD [address] [place] [address] PCP - ACO Reach 01/12/23 Head Setter Relationship Specialty Start Date End Date Komal Schaffer MD [address] [place] [address] PCP - General Internal Medicine 01/02/23 Komal Schaffer MD [address] [place] [address] PCP - ACO Reach 01/12/23 Head Setter Relationship Specialty Start Date End Date Komal Schaffer MD [address] [place] [address] PCP - General Internal Medicine 01/02/23 Komal Schaffer MD [address] [place] [address] PCP - ACO Reach 01/12/23 Head Setter Relationship Specialty Start Date End Date Komal Schaffer MD [address] [place] [address] PCP - General Internal Medicine 01/02/23 Komal Schaffer MD [address] [place] [address] PCP - ACO Reach 01/12/23 Head Setter Relationship Specialty Start Date End Date Komal Schaffer MD [address] [place] [address] PCP - General Internal Medicine 01/02/23 Komal Schaffer MD [address] [place] [address] PCP - ACO Reach 01/12/23 Team Status: Inactive Member Role Status Dates Koaml Schaffer II MD Primary Care Provider Active Start: February 12, 2024 End: February 12, 2024 Eriberto Leyva MD Emergency Provider Active Star t: February 12, 2024 End: February 12, 2024 Head Setter Relationship Specialty Start Date End Date Komal Schaffer MD [address] [place] [address] PCP - General Internal Medicine 01/02/23 Komal Schaffer MD [address] [place] [address] PCP - ACO Reach 01/12/23 Head Setter Relationship Specialty Start Date End Date Komal Schaffer MD [address] [place] [address] PCP - General Internal Medicine 01/02/23 Komal Schaffer MD [address] [place] [address] PCP - ACO Reach 01/12/23 Head Setter Relationship Specialty Start Date End Date Komal Schaffer MD [address] [place] [address] PCP - General Internal Medicine 01/02/23 Komal Schaffer MD [address] [facility] [address] [place] [address] PCP - ACO Reach 01/12/23 Team Status: [...] , HEATHER Other Provider Active Start: N ovember 2023 End: July 04, 2024 Alem Hinds RN Other Provider Active Start: No vember 2023 End: July 04, 2024 Kevin Leo MD Other Provider Active Start: June 22, 2024 End: July 04, 2024 Mrei Blanco DO Other Provider Active Start : [...] Reddy MD Other Provider Active Start: N ovember 2023 End: July 04, 2024 Meera Vargas [...] MD Other Provider Active Start: No [email or web address] End: July 04, 2024 Cuong Dos Santos [...] [id number] End: July 04, 2024 Sofia Martinez DO Other Provider Active Start: No [email or web address] End: July 04, 2024 Zia Duncan DO [...] Start: No 2023 End: July 04, 2024 Mariana Xiong RN Other Provider Active Start: N 2023 End: July 04, 2024 Team Status: Active Member Role Status Dates Komal Schaffer II MD Primary Care Provider Active Start: June 22, 2024 Silvestre Grover MD Admit Provider, Othe r Provider Active Start: June 22, 2024 Libby Potter RN Other Provider Active Star t: June 22, 2024 Melva Mendoza , HEATHER Other Provider Active Start : June 22, 2024 Rocio Renner , HEATHER Other Provider [...] Provider Active Start: Jun Candida Perez , [employer] SETTER-C Other Provider Active St art: June 22, [...] Active Start: No [email or web address] Zia Duncan , Other Provider Active Start : June 22, 2024 Susanne Sharma APRN Other Provider Active Start: June 22, 2024 Dru Reveles DO Other Provider Active Start: June 22, 2024 Jarret Garza MD Other Provider Active Sta rt: June 22, 2024 Yuki Leyva APRN Other Provider Active [...] Provider Active Star t: June 24, 2024 Melav Mendoza , HEATHER Other Provider Active Start : June 24, 2024 Rocio Renner , RN Other Provider Active Star t: June 24, 2024 Chayito Leone , HEATHER Other Provider Active Start: N 2023 Alem Hinds , HEATHRE Other Provider Active Start: No vember 2023 [...] Provider Active Start: Jun Candida Perez , [employer] SETTER-C Other Provider Active St art: June [...] t: June 24, 2024 Иван Carreon , DO Other Provider Active Start: June 24, 2024 Bharathi Leon MD Other Provider Active Start: June 24, 2024 Vince Shirley MD Other Provider Active Start: June 24, 2024 Nikole Jaeger APRN Other Provider Active Star t: June 24, 2024 Kaz Prescott MD Other Provider Active Start: 2023 Kamaljit Melo MD Other Provider Active Start: No 2023 Mariana Xoing , HEATHER Other Provider Active Start: 2023 Fidel Bennett MD Attending Provider Active [...] Leone , HEATHER Other Provider Active Start: 2023 Alem Hinds , HEATHER Other Provider [...] Keaton Reddy MD Other Provider Active Start: 2023 Meera Vargas APRN Other Provider Active Start: July 01, 2024 Eliezer Newell MD Other Provider Active Start: July 01, 2024 Dustin Stapleton MD Other Provider Active Start: 2023 Ute Colvin MD Other Provider Active Start: July 01, 2024 Chau Lara MD Other Provider Active Start: July 01, 2024 Danie Jaramillo DO Other Provider Active Start: July 01, 2024 Chetan Gray MD Other Provider Active Start: No 2023 Cuong Dos Santos MD Other Provider Active Start: Jun Candida Perez [employer]TER[employer] Other Provider Active St art: July [...] Markus Johnson MD Other Provider Active Start: 2023 Sofia Martinez , Other Provider Active [...] Suraj Razo MD Other Provider Active Start: 2023 Komal Albright MD Other Provider Active [...] Kaz Prescott MD Other Provider Active Start: 2023 Kamaljit Melo MD Other Provider Active Start: No 2023 Mariana Xiong RN Other Provider Active Start: 2023 Team Status: Active Member Role Status Dates Komal Schaffer II MD Primary Care Provider Active Start: July 09, 2024 Juli Thomas APRN Emergency Provider Active Start: July 09, 2024 Danie Jaramillo , Admit Provider, Atte nding Provider Active Start: July 09, 2024 Jamel Packer , Other Provider Active Start: July 09, 2024 Head Setter Relationship Specialty Start Date End Date Komal Schaffer MD [address] [place] [address] PCP - General Internal Medicine 01/02/23 Komal Schaffer MD [address] [place] [address] PCP - ACO Reach 01/12/23 Head Setter Relationship Specialty Start Date End Date Komal Schaffer MD [address] [place] [address] PCP - General Internal Medicine 01/02/23 Komal Schaffer MD [address] [place] [address] PCP - ACO Reach 01/12/23 Head Setter Relationship Specialty Start Date End Date Komal Schaffer MD [address] [place] [address] PCP - General Internal Medicine 01/02/23 Komal Schaffer MD [address] [place] [address] PCP - ACO Reach 01/12/23 Team Status: [...] Kaz Prescott MD Other Provider Active Start: 2023 Gucci Jacques MD Attending Provider, Other Provider Active Start: July 30, 2024 Team Status: Active Member Role Status Dates Juli Thomas APRN Emergency Provider Active Start: July 31, 2024 Komal Schaffer II MD Primary Care Provider Active Start: July 31, 2024 Kamaljit Melo MD Admit Provider Active Start: 2023 Kaz Prescott MD Other Provider Active Start: 2023 Gucci Jacques MD Other Provider Active Start: 2023 Peyman Hall DO Attending Provider, Other Provider Active Start: July 31, 2024 Team Status: Active Member Role Status Dates Komal Schaffer II MD Primary Care Provider Active Start: September 11, 2024 Joseline Barrera MD Emergency Provider Active Start: September 11, 2024 Denzel Zamora MD Admit Provider, Atte nding Provider Active Start: September 11, 2024 Jamel Packer , Other Provider Active Start: September 11, 2024 Team Status: Inactive Member Role Status Dates Komal Schaffer II MD Primary Care Provider Active Start: September 11, 2024 End: September 13, 2024 Joseline Barrera MD Emergency Provider Active Start: September 11, 2024 End: September 13, 2024 Denzel Zamora MD Admit Provider, Atte nding Provider Active Start: September 11, 2024 End: September 13, 2024 Jamel Packer , Other Provider Active Start: September 11, 2024 End: September 13, 2024 Head Setter Relationship Specialty Start Date End Date Komal Schaffer MD [address] [place] [address] PCP - General Internal Medicine 01/02/23 Komal Schaffer MD [address] [place] [address] PCP - ACO Reach 01/12/23 Head Setter Relationship Specialty Start Date End Date Komal Schaffer MD [address] [place] [address] PCP - General Internal Medicine 01/02/23 Komal Schaffer MD [address] [place] [address] PCP - ACO Reach 01/12/23 Head Setter Relationship Specialty Start Date End Date Komal Schaffer MD [address] [place] [address] PCP - General Internal Medicine 01/02/23 Komal Schaffer MD [address] [place] [address] PCP - ACO Reach 01/12/23 Esther Connolly, RN Clinical Advocate Family Medicine 09/27/24 Head Setter Relationship Specialty Start Date End Date Komal Schaffer MD [address] [place] [address] PCP - General Internal Medicine 01/02/23 Komal Schaffer MD [address] [place] [address] PCP - ACO Reach 01/12/23 Esther Connolly, RN Clinical Advocate Family Medicine 09/27/24 Head Setter Relationship Specialty Start Date End Date Komal Schaffer MD [address] [place] [address] PCP - General 05/18/23 Head Setter Relationship Specialty Start Date End Date Komal Schaffer MD [address] [place] [address] PCP - General 05/18/23 Head Setter Relationship Specialty Start Date End Date Komal Schaffer MD [address] [place] [address] PCP - General Internal Medicine 01/02/23 Komal Schaffer MD [address] [place] [address] PCP - ACO Reach 01/12/23 Anastasia Rayo LPN 11/08/24 Head Setter Relationship Specialty Start Date End Date Komal Schaffer MD [address] [place] [address] PCP - General Internal Medicine 01/02/23 Komal Schaffer MD [address] [place] [address] PCP - ACO Reach 01/12/23 Anastasia Rayo, [facility] 11/08/24 Head Setter Relationship Specialty Start Date End Date Komal Schaffer MD [address] [place] [address] PCP - General Internal Medicine 01/02/23 Komal Schaffer MD [address] [place] [address] PCP - ACO Reach 01/12/23 Anastasia Rayo, [facility] 11/08/24 Head Setter Relationship Specialty Start Date End Date Komal Schaffer MD [address] [place] [address] PCP - General Internal Medicine 01/02/23 Komal Schaffer MD [address] [place] [address] PCP - ACO Reach 01/12/23 Anastasia Rayo, [facility] 11/08/24 Head Setter Relationship Specialty Start Date End Date Komal Schaffer MD [address] [place] [address] PCP - General Internal Medicine 01/02/23 Komal Schaffer MD [address] [place] [address] PCP - ACO Reach 01/12/23 Anastasia Rayo, [facility] 11/08/24 Head Setter Relationship Specialty Start Date End Date Komal Schaffer MD [address] [place] [address] PCP - General Internal Medicine 01/02/23 Komal Schaffer MD [address] [place] [address] PCP - ACO Reach 01/12/23 Anastasia Rayo LPN 11/08/24 Head Setter Relationship Specialty Start Date End Date Komal Schaffer MD [address] [place] [address] PCP - General Internal Medicine 01/02/23 Komal Schaffer MD [address] [place] [address] PCP - ACO Reach 01/12/23 Anastasia Rayo LPN 11/08/24 Head Setter Relationship Specialty Start Date End Date Komal Schaffer MD [address] [place] [address] PCP - General Internal Medicine 01/02/23 Komal Schaffer MD [address] [place] [address] PCP - ACO Reach 01/12/23 Anastasia Rayo LPN 11/08/24 Head Setter Relationship Specialty Start Date End Date Komal Schaffer MD [address] [place] [address] PCP - General 05/18/23 Head Setter Relationship Specialty Start Date End Date Komal Schaffer MD [address] [place] [address] PCP - General Internal Medicine 01/02/23 Komal Schaffer MD [address] [place] [address] PCP - ACO Reach 01/12/23 Anastasia Rayo [...] Other Provider Active Start: February 13, 2025 Head Setter Relationship Specialty Start Date End Date Komal Schaffer MD [address] [place] [address] PCP - General Internal Medicine 01/02/23 Komal Schaffer MD [address] [place] [address] PCP - ACO Reach 01/12/23 Anastasia Rayo LPN [address] [place] [address] 11/08/24 Head Setter Relationship Specialty Start Date End Date Komal Schaffer MD [address] [place] [address] PCP - General Internal Medicine 01/02/23 Komal Schaffer MD [address] [place] [address] PCP - ACO Reach 01/12/23 Anastasia Rayo LPN [address] [place] [address] 11/08/24 Head Setter Relationship Specialty Start Date End Date Komal Schaffer MD [address] [place] [address] PCP - General Internal Medicine 01/02/23 Komal Schaffer MD [address] [place] [address] PCP - ACO Reach 01/12/23 Anastasia Rayo LPN [address] [place] [address] 11/08/24 Head Setter Relationship Specialty Start Date End Date Komla Schaffer MD [address] [place] [address] PCP - General Internal Medicine 01/02/23 Komal Schaffer MD [address] [place] [address] PCP - ACO Reach 01/12/23 Anastasia Rayo LPN [address] [place] [address] 11/08/24 Team Status: Inactive Member Role Status Dates Komal Schaffer II MD Primary Care Provider Active Start: March 18, 2025 End: March 18, 2025 Gucci Jacques MD Attending Provider Active Star t: March 18, 2025 End: March 18, 2025 Head Setter Relationship Specialty Start Date End Date Komal Schaffer MD [address] [place] [address] PCP - General Internal Medicine 01/02/23 Komal Schaffer MD [address] [place] [address] PCP - ACO Reach 01/12/23 Anastasia Raoy LPN [address] [place] [address] 11/08/24 Head Setter Relationship Specialty Start Date End Date Komal Schaffer MD [address] [place] [address] PCP - General Internal Medicine 01/02/23 Komal Schaffer MD [address] [place] [address] PCP - ACO Reach 01/12/23 Anastasia Rayo LPN [address] [place] [address] 11/08/24 Head Setter Relationship Specialty Start Date End Date Komal Schaffer MD [address] [place] [address] PCP - General Internal Medicine 01/02/23 Komal Schaffer MD [address] [place] [address] PCP - ACO Reach 01/12/23 Anastasia Rayo LPN [address] [place] [address] 11/08/24 Team Status: Inactive Member Role Status Dates Komal Schaffer II MD Primary Care Provider Active Start: May 05, 2025 End: May 05, 2025 Stanley Saunders DO Attending Provider Active Start: May 05, 2025 End: May 05, 2025 Head Setter Relationship Specialty Start Date End Date Komal Schaffer MD [address] [place] [address] PCP - General Internal Medicine 01/02/23 Komal Schaffer MD [address] [facility] [address] [place] [address] PCP - ACO Reach 01/12/23 Anastasia Rayo LPN [address] [facility] [address] [place] [address] 11/08/24 Source Comments (unrecognize d section and content) In the event this informatio n is protected by the Federal Confidentiality of Alcohol and Drug Abuse Patient Records regulations: The Federal rules restrict any use of the information to criminally investigate or prosecute any alcohol or drug abuse patient.[facility] the event this information is protected by the Federal Confidentiality of Alcohol and Drug Abuse Patient Records regulations: The Federal rules restrict any use of the information to criminally investigate or prosecute any alcohol or drug abuse patient.[facility] Reason for Visit (unrecogniz ed section and content) Reason Comments Bladder Cancer Specialty Diagnoses / Procedures Referred By Contac t Referred To Contact Diagnoses Fever, unspecified Fever, immunocompromised patient Honorio Vuong MD [address] [place] [address] [facility] [address] [place] [address] Referral ID Status Reason Start Date Expiration Date Visits Re quested Visits Authorized [id number] 1 1 Reason Comments Follow-up 1yr Specialty Diagnoses / Procedures Referred By Contac t Referred To Contact Diagnoses Paroxysmal atrial fibrillation ([facility]) Procedures ECG 12 Lead Baltazar Hoover, [address] [facility] [address] [place] [address] Referral ID Status Reason Start Date Expiration Date V isits Requested Visits Authorized [id number] Authorized 09/20/2023 09/19/2024 1 1 Specialty Diagnoses / Procedures Referred By Contac t Referred To Contact Physical Therapy Diagnoses Myasthenia gravis without (acute) exacerbation ([facility]) Procedures TX PHYSICAL THERAPY EVALUATION LOW COMPLEX 20 MINS Stanley Saunders MD [address] [place] [address] Darinel Lobo, PT [address] [facility] [address] [place] [address] Referral ID Status Reason Start Date Expiration Date V isits Requested Visits Authorized [id number] Authorized 09/01/2023 02/28/2024 30 30 Reason Comments Medicare [place] Well[place] [facility] Results labs discuss medication dosage Pt states rece ntly he increased his gabapentin to 2 capsules --if this is ok will need directions changed Reason Comments Toenail Care Non DM Nails Reason Comments Med Refill Reason Comments Follow-up Hospital for dehydra tion. Patient feels weak and sore all over. Reason Comments Follow-up EKG visit Specialty Diagnoses / Procedures Referred By Contac t Referred To Contact Diagnoses Bradycardia Procedures ECG 12 Lead Willy Leyva, PATIENT FINANCIAL COUNSELOR[employer]RE GROOVER [address] [facility] [address] [place] [address] Phone: tel: fax: Referral ID Status Reason Start Date Expiration Date V isits Requested Visits Authorized [id number] Authorized 10/09/2024 10/09/2025 1 1 Reason Comments [...] Procedures Follow Up In Cardiology Willy Leyva, PATIENT FINANCIAL COUNSELOR[employer] GROOVER [address] [facility] [address], [address] [address] Phone: tel: fax: Referral ID Status Reason Start Date Expiration Date V isits Requested Visits Authorized [id number] Authorized 11/04/2024 11/04/2025 1 1 Reason Comments Toenail Care Non dm nail care Reason Onset Date Comments Med Refill 04/01/2025 Reason Comments Toenail Care Goals (unrecognized section and content) Type Treatment [...] Adebayo Lopez RN)1702 (Given - Provider: Adebayo oLpez RN) 0923 (Given - Provider: Adebayo Lopez [...] Uriarte RN)1717 (Given - Provider: Pippa Uriarte RN)2037 (Given - Provider: Shasta Ryan) 0816 (Given - Provider: Adebayo Lopez RN)1238 (Given - Provider: Adebayo Lopez RN)1702 (Given - Provider: Adebayo Lopez RN)204 (Given - Provider: Silke Haney, HEATHER) 0923 (Given - Provider: Adebayo Lopez RN)1300 [...] BE BASED ON THE PRIMARY CLINICAL RECORDS. [employer] provides no warranty or guarantee of the accuracy or completeness of information in this document.
[2025-05-26 10:24] VITALS: BP 150/67; PULSE 71; TEMP 36.8; O2SAT 93
[2025-05-26 11:05] VITALS: PULSE 81; O2SAT 94
[2025-05-26] MEDS: LIDOCAINE HCL 2% 400 MG/20 ML MDV INJ (11:06)
[2025-05-26] MEDS: BUPIVACAINE HCL 0.25% PF 25 MG/10 ML VIAL 8 ML INJ (11:06)
[2025-05-26 11:07] VITALS: PULSE 84; O2SAT 94
[2025-05-26 11:09] VITALS: BP 199/102
[2025-05-26 11:10] VITALS: BP 177/81
--- NOTE | 2025-05-26 11:12 | W.PM.PROCNOT ---
Date of procedure: 05/26/25 Pre-op diagnosis: Pain due to lumbar spondylosis without myelopathy Post-op diagnosis: same as pre-op Procedure: Procedure: Bilateral L4-5, L5-S1 medial branch block Medications: Bupivacaine 0.25% 6cc The patient was seen and examined in the preoperative holding area.? An informed consent was obtained and placed on the chart.? The patient was brought to the medical procedure unit and placed in the prone position.? A timeout was completed verifying correct patient, procedure site, positioning, plan, and special equipment.? Using aseptic technique, the needle was placed at left L4. Under direct fluoroscopic visualization a Quincke-tipped spinal needle was advanced to the junction of the superior articulating process with the transverse process at the designated medial branch segment.? Preceded by negative aspiration, the above-mentioned injectate was placed in 1 mL aliquots.? The procedure was repeated at left L5, S1.? The needle was removed and insertion site was covered. The same procedure, at the same levels, was completed on the right side. The patient was taken to the postprocedural recovery area and monitored for an appropriate length of time before found suitable for discharge in the company of a responsible adult. Anesthesia: Local Surgeon: Jadyn Wyman Pathology: none sent Condition: stable Disposition: no change
== END 2025-05-26 11:18 | disposition home or self-care (01) ==
PROVIDERS: PCP Internal Medicine; Visit Provider Anesthesiology
DX: M47.816 Spondylosis without myelopathy or radiculopathy, lumbar region (principal); M54.50 Low back pain, unspecified
CPT/HCPCS: 64493; 64494; J0665

== ENCOUNTER 2025-06-02 13:44 | Outpatient (OUT) | payer MEDICARE, SELFPAY ==
--- OUTSIDE RECORDS SUMMARY | 2025-06-02 14:00 | XMS_ITS | CCD ---
Author Organization [facility] CliniSyct Care Team Providers Care Generator Switchboard Operator Name Role Phone OLIVIA HALL Unavailable Unavailable NO FAMILY DOCTOR, NO FAMILY DOCTOR Unavailable Unavailable BALTAZAR LÓPEZ Unavailable Unavailable NO FAMILY DOCTOR, NO FAMILY DOCTOR Unavailable Unavailable KOMAL SCHAFFER Primary Care Physician AUTUMN PIMENTEL, DR YOKO Hair Consulting Unavailzuly LEYVA JR, DR YOKO Hair Admitting Unavailabl e SARBJIT, DR SAUCEDA Primary Care Unavailable AUTUMN PIMENTEL, DR YOKO Hair Attending Unavailzuly LEYVA JR, DR YOKO Hair Admitting Unavailzuly SCHAFFER, DR SAUCEDA Primary Care Unavailable AUTUMN PIMENTEL, DR YOKO Hair Attending Unavailzuly LEYVA JR, DR YOKO Hair Consulting Unavailzuly LEYVA JR, DR YOKO Hair Admitting Unavailabl e SARBJIT, DR SAUCEDA Primary Care Unavailable AUTUMN PIMENTEL, DR YOKO Hair Attending Unavailzuly e MEGHAN RAMIREZ Consulting Unavailable JOSELINE PARKER Consulting Unavailable SARBJIT, DR SAUCEDA Consulting Unavailable SARBJIT, DR SAUCEDA Primary Care Unavailable SARBJIT, DR SAUCEDA Admitting Unavailable SARBJIT, DR SAUCEDA Attending Unavailable LEELA BOCANEGRA Admitting Unavailable AAMIR, DR JORDAN Gonzalez Consulting Unavailable SARBJIT, DR SAUCEDA Primary Care Unavailable LEELA BOCANEGRA Attending Unavailable DALJIT, LEELA Consulting Unavailable AUTUMN PIMENTEL, DR YOKO Hair Admitting Unavailzuly LEYVA JR, DR YOKO Hair Attending Unavailzuly e AAMIR, DR JORDAN Gonzalez Consulting Unavailable SARBJIT, DR SAUCEDA Primary Care Unavailable AUTUMN PIMENTEL, DR YOKO Hair Consulting Unavailzuly e SARBJIT, DR SAUCEDA Primary Care Unavailable MEGHAN HINDS Admitting Unavailable MEGHAN HINDS Attending Unavailable MEGHAN HINDS Consulting Unavailable Komal Schaffer II Primary Care Provider [phone] Komal Schaffer II Primary Care Provider [phone] GEOVANY Schaffer Primary Care Provider MD Ivan Barnhart Attending Provider GEOVANY Schaffer Primary Care Provider MD Ivan Barnhart Attending Provider Leyva, Yoko L Attending Unavailable Leyva, Yoko [...] Unavailable LIAN PHILIP Consulting Unavailable Sarbjit, GEOVANY Sauceda Primary Care Provider MD Ivan Barnhart Attending Provider MD Ivan Barnhart Attending Provider MD Jarret Garza Admit Provider Pauline Canales Other Provider Unavailable DO Tonia Rice Other Provider MD Wilton Lockhart Other Provider DO Stanley Saunders Other Provider Aime ANP-BC Sabine Other Provider DO Jamel Packer Other Provider ZACH Mosqueda Other Provider ANAMARIA Henning-Daniella Rascon Other Provider ZACH Tamayo-CADD OPERATOR-C Mookie Nichols Other Provider MD Silvestre Grover Other Provider ZACH Armstrong Other Provider MD Lexy Chappell Other Provider MD Stanley Burt Other Provider MD Rhonda Rawls Other Provider DO Colten Xavier Other Provider MD Sudhakar Gross Other Provider MD Eriberto Yang Other Provider MD Jamel Noe Other Provider DO Dejuan Og Other Provider MD Chau Lara Attending Provider Schaffer II, Dr. Komal Mckeon Primary [facility] vailable Schaffer II, Dr. Komal Mckeon [facility] v[facility] Schaffer II, Dr. Komal Mckeon [facility] Schaffer II, Dr. Komal Mckeon [facility] vailable Leyva, Ms. Willy Hanley Attending Unavai lable Leyva, Ms. Willy Hanley Referring Unavai lable Kiko, Dr. Baltazar Laws Referring Unava ilable Sarbjit II, Dr. Komal Mckeon [facility] vailable Kiko, Dr. Baltazar Laws Attending Unava ilable Schaffer, II [facility] Care Provider [phone] MD Silvestre Grover Admit Provider MD Silvestre Grover Attending Provider HEATHER Potter Other Provider Unavailable HEATHER Mendoza Other Provider Unavailable HEATHER Lo Other Provider Unavailable HEATHER Renner Other Provider Unavailable HEATHER uJstin Other Provider Unavailable HEATHER Leone Other Provider Unavailable MD Kevin Leo Other Provider ZACH Leon Other Provider [phone] DO Meri Blanco Other Provider MD Ubaldo Calvo Other Provider [phone] DO Mateo Horne Other Provider MD Tyson [...] 0 MD Jarret Garza Other Provider ZACH Leyva Other Provider ZACH Shepherd Other Provider MD Suraj Razo Other Provider MD Komal Albright Other Provider ZACH Gamez Other Provider Inga, HEATHER Peña Other Provider Unavailable Komal Schaffer MD Primary Care Provider Komal Schaffer MD Primary Care Provider Komal Schaffer MD Unavailable GEOVANY Schaffer Primary Care Provider MD Eriberto Leyva Emergency Provider GEOVANY Schaffer Komal Primary Care Provider DO Dg Jacobson Emergency Provider Unavai lable Christinm, DO Mateo Admit Provider Christinm, DO Mateo Attending Provider DO Jamel Packer Other Provider MD Abi Biswas Other Provider MD Silvestre Grover Other Provider MD Silvestre Grover Admit Provider MD Silvestre Grover Attending Provider Sarbjit ARMENTA, Komal Primary Care Provider Dg Jacobson DO Emergency Provider Unavai lable Lindgarym DO, Mateo Admit Provider Lindgloria DO, Mateo Attending Provider Silvestre Grover MD Other Provider Jamel Packer DO Other Provider True BRIDGES, Abi Hair Other Provider Silvestre Grover MD Admit Provider Silvestre Grover MD Attending Provider Tariq ROMERO, Libby Other Provider Unavailable Kelly ROMERO, Melva Other Provider Unavailable Rocio Renner RN Other Provider Unavailable Vasu ROMERO, Chayito Other Provider Unavailable Alem Hinds RN Other Provider Unavailable Kevin Leo MD Other Provider Meri Blanco DO Other Provider [phone] Ubaldo Calvo MD Other Provider Ozzie GARCIA Mateo Other Provider [phone] Anette BRIDGES, Tyson Other Provider Marsha Fritz MD Other Provider Danie Calles DO Other Provider Barry BRIDGES, Keaton Other Provider Unavailable Meera Vargas APRN Other Provider Reece BRIDGES, Eliezer Other Provider Dustin Stapleton MD Other Provider Ute Colvin MD Other Provider Chau Lara MD Other Provider Danie Jaramillo DO Other Provider [phone] Chetan Gray MD Other Provider Cuong Dos Santos MD Other Provider Ana AIR SAMPLER-C, Candida Hickman Other Provider Arjun SERRANO, Manuel Ceja Other Provider Unavailable Zackery BRIDGES, Kushal Nichols Other Provider Torsten Burdick MD Other Provider Dudley Leon MD Other Provider Lizette BRIDGES, Mo Other Provider Unavailable Markus Johnson MD Other Provider Sofia Martinez DO Other Provider Zia Duncan DO Other Provider Susanne Sharma APRN Other Provider Dru Reveles DO Other Provider Greg BRIDGES, Jarret Ceja Other Provider Yuki Leyva APRN Other Provider Queenie Shepherd APRN Other Provider Suraj Razo MD Other Provider Komal Albright MD Other Provider Cabral DO, Cliff T Other Provider Lauri DO, Иван Other Provider Edward BRIDGES, Bharathi Garcia Other Provider Casper BRIDGES, Vince Sewell Other Provider Nikole Jaeger APRN Other Provider Kenyon BRIDGES, Kaz Other Provider Kameron BRIDGES, Kamaljit Other Provider Mariana Xiong RN Other Provider Unavailable Juli Thomas APRN Emergency Provider Danie Jaramillo DO Admit Provider Danie Jaramillo DO Attending Provider Komal Schaffer II Primary Care Provider Dg Jacobson DO Emergency Provider Unavai marvin Horne DO, Mateo Admit Provider [phone] Mateo Horne DO Attending Provider Silvestre Grover MD Other Provider Jamel Packer DO Other Provider True BRIDGES, Abi Hair Other Provider Silvestre Grover MD Admit Provider Silvestre Grover MD Attending Provider Libby Potter RN Other Provider Unavailable Kelly RN, Melva Other Provider Unavailable Zurdo RNRocio Other Provider Unavailable Vasu RNChayito Other Provider Unavailable Alem Hinds RN Other Provider Unavailable Kevin Leo MD Other Provider Meri Blanco DO Other Provider Ubaldo Calvo MD Other Provider Mateo Horne DO Other Provider Tyson Cheema MD Other Provider Lam BRIDGES, Marsha Other Provider Danie Calles DO Other Provider Barry BRIDGES, Keaton Other Provider Unavailable Meera Vargas APRN Other Provider Reece BRIDGES, Eliezer Other Provider Daya BRIDGES, Dustin Other Provider Ute Colvin MD Other Provider Marco BRIDGES, Chau Other Provider Danie Jaramillo DO Other Provider Isaac BRIDGES, Chetan Other Provider Cuong Dos Santos MD Other Provider Ana AIR SAMPLER-C, Candida Hickman Other Provider Arjun SERRANO, Manuel Ceja Other Provider Unavailable Kushal Vizcarra MD Other Provider Gennaro BRIDGES, Torsten Other Provider Dudley Leon MD Other Provider Lizette BRIDGES, Mo Other Provider Unavailable Markus Johnson MD Other Provider Sofia Martinez DO Other Provider Zia Duncan DO Other Provider Susanne Sharma APRN Other Provider Dru Reveles DO Other Provider Greg BRIDGES, Jarret Ceja Other Provider Yuki Leyva APRN Other Provider Queenie Shepherd APRN Other Provider Suraj Razo MD Other Provider Komal Albright MD Other Provider Cabral DO, Cliff T Other Provider Lauri GARCIA, Иван Other Provider Edward BRIDGES, Bharathi Garcia Other Provider Casper BRIDGES, Vince Sewell Other Provider [phone] Nikole Jaeger APRN Other Provider Kenyon BRIDGES, Kaz Other Provider Kameron BRIDGES, Kamaljit Other Provider Mariana Xiong RN Other Provider Unavailable Juli Thomas APRN Emergency Provider Danie Jaramillo DO Admit Provider Danie Jaramillo DO Attending Provider Kameron BRIDGES, Kamaljit Admit Provider Kaz Prescott MD Attending Provider Gucci Jacques MD Other Provider Peyman Hall DO Other Provider Bruce BRIDGES, Joseline Moore Emergency Provider Noah BRIDGES, Denzel Admit Provider Denzel Zamora MD Attending Provider Esther Connolly RN Unavailable [phone] Rayo SECTIONAL BELT MOLD ASSEMBLER, Anastasia Unavailable Unavailable BALTAZAR HOOVER Attending Unavailable [...] Emergency Provider Jarret Garza MD Admit Provider [phone] Jarret Garza MD Attending Provider [phone] Jamel Packer DO Other Provider Jarret Garza MD Other Provider Jamel Packer DO Attending Provider Anastasia Rayo LPN Unavailable Jamel Packer Consulting Unavailable Denzel Zamora Attending Unavailable Noah Denzel Admitting Unavailable Komal Schaffer Primary Care Unavailable Gucci Jacques Consulting Unavailable Komal Schaffer Primary Care Unavailable Kaz Prescott Attending Unavailable Kamaljit Melo Admitting Unavailable Peyman Hall Consulting Unavailable Jamel Packer Consulting Unavailable DarioomaJarret moore Attending Unavailable Jarret Garza Admitting Unavailable Komal [...] Sharma Consulting Unavailable Dru Reveles Consulting Unavailable Daromar, Obaydah M Consulting Unavailable Yuki Leyva Consulting Unavailable Queenie Shepherd Consulting Unavailable Suraj Razo Consulting Unavailable Komal Albright Consulting Unavailable Cliff Cabral Consulting Unavailable Иван Carreon Consulting Unavailable Bharathi Leon Consulting Unavailable Vince Shirley Consulting Unava ilable Nikole Jaeger Consulting Unavailable Kaz Prescott Consulting Unavailable Kamaljit Melo Consulting Unavailable Mariana Xiong Consulting Unavailable Komal Schaffer Primary Care Unavailable Mateo Horne Admitting UnavailMateo Troncoso Attending UnavailSilvestre Mabry Consulting Unavailable Jamel Packer Consulting Unavailable Abi Biswas Consulting Unavailcarrie Jacques MD, Gucci Nichols Attending Provider Ivan Barnhart Attending Unavailable KOMAL SCHAFFER Primary Care Unavailable Stanley Saunders DO Attending Provider AIDE GARCIA Attending Unavailable LEELA BOCANEGRA Attending Unavailable MOOKIE TAMAYO Attending Unavailable LEELA BOCANEGRA Attending Unavailable REAL OG Attending Unavailable DALJITLEELA Attending Unavailable REAL OG Attending Unavailable REAL OG Attending Unavailable REAL OG Referring Unavailable REAL OG Attending Unavailable STANLEY SAUNDERS Attending Unavailable REAL OG Attending Unavailable DOTTIE BOCANEGRARI Marcial Attending Unavailable DOTTIE BOCANEGRARI Marcial Attending Unavailable STANLEY SAUNDERS Attending Unavailable REAL OG Attending Unavailable LEELA BOCANEGRA Attending Unavailable CHAVA OGS Carrie Attending Unavailable DOTTIE BOCANEGRARI Marcial Attending Unavailable Giedraitis , Andrius Vytsalena Attending Unavailable Giedraitis , Andrius Vytautnanidni Attending Unavailable Giedraitis , Andrius Vytautas Attending Unavailable Giedraitis , Andrius Vytautnandini Attending Unavailable Giedraitis , Andrius Vytautnandini Attending Unavailable Giedraitis , Andrius Vytautas Attending Unavailable Giedraitis , Andrius Vytautas Attending Unavailable Giedraitis , Andrius Vytautas Attending Unavailable Giedraitis , Andrius Vytautnandini Attending Unavailable Giedraitis , [place] Hagen Attending Unavailable Allergies Allergy Classification Reported Allergen(s) Allergy Type Date of Onset Reaction(s) Facility (1 source) No Known Medication Allergies; Translations: [No Known Medication Allergies] Propensity to adverse reactions (disorder) [facility] Repository (6 sources) nebivolol; Translations: [NEBIVOLOL] Drug Allergy [facility] Medications Current Medications Medication Drug Class(es) [...] q12hr, # 14 cap(s), Refills(s) 0, Pharmacy: [id number], 172, cm, 03/29/22 11:26:00 EDT, Height/Length [...] take 1 capsule by mouth twice daily [place]-3 Fatty Acids-Fish Oil (Fish Oil) 360-1,200 mg [...] Status: Ordered [facility] capsule [facility] Fish Oil 1200 MG [...] Active Start: 06-19-2024 take 2 capsules by [facility] twice daily Gabapentin 300 mg capsule Active [...] Start: 07-05-2019 take 1 capsule by [facility] twice daily gabapentin (NEURONTIN) 300 mg [...] by mouth twice daily. lactobacillus rhamnosus gg [id number] unt oral capsule (1 source) Start: 10-17-19 23 lactobacillus (CULTURELLE) capsule 1 capsule lisinopril 20 mg oral tablet (20 sources) Angiotensin Converting Enzyme Inhibitor Start: 03-04-20 End: 09-09-19 take 1 tablet by mouth once daily [...] with drug therapy take 1 capsule by mo ut once daily loratadine 10 mg capsule Take 1 capsule by mouth once daily. Active Comment on above: Take by mouth. Take 10 mg by mouth once daily. 100 ml magnesium sulfate 10 mg/ml injection (1 source) Start: take 1000 mg intravenously every hour as [...] day with food Oral 0 06/30/2009 Active Dpbnympa-Dhp-Pd-Lycopen-Lute in (Adults 50 Plus) 0.4-300-250 mg-mcg-mcg Tablet (15 sources) Start: 12-27-2017 take 1 tablet by mouth once daily Start: 12-27-2017 take 1 tablet by gloria th once daily Teggshqy-Jme-Di-Lycopen-Lutein (Adults 5 0 Plus) 0.4-300-250 mg-mcg-mcg Tablet Active 1 TAB PO Daily December 27, 2017 12:00am Complies with drug therapy Start: 12-27-2017 take 1 tablet by gloria th once daily Ghruzzet-Fzn-Sm-Lycopen-Lutein (Adults 5 0 Plus) 0.4-300-250 mg-mcg-mcg Tablet Active 1 TAB PO Daily December 26, 2017 11:00pm Start: 12-27-2017 take 1 tablet by gloria th once daily Cdcvuois-Dju-Tr-Lycopen-Lutein (Adults 5 0 Plus) 0.4-300-250 mg-mcg-mcg Tablet [...] by mouth once daily. 0 Active omega 3-yqa-erv-fish oil 360 mg-108 mg- 180 mg-1,200 mg capsule (4 sources) take 1 capsule by mouth twice daily omega 5-fri-hcf-fish oil 360 mg-108 mg- 180 mg-1,200 mg capsule Take 1 capsule by mouth 2 times a day. Active omega 3-dha-epa- fish oil 360 mg-108 mg- 180 mg-1,200 mg capsule TAKE DIRECTED. Active omega 3-dha-epa- fish oil 360 mg-108 mg- 180 mg-1,200 mg capsule TAKE DIRECTED. 0 Active [place]-3 Fatty Acids (FISH OIL) 1200 MG CAPS (1 source) Start: 06-08-2022 take 1 capsule by mouth at bedtime [place]-3 Fatty Acids (FISH OIL) 1200 MG CAPS [...] tablet by mouth four times daily Pyridostigmine [place] 60 mg tablet Discontinued 1 TAB PO [...] 19, 2024 12:00am June 22, 2024 12:27pm [id number] 200 actuat albuterol 0.09 mg/actuat metered dose [...] procedure, # 2 tab(s), Refills(s) 0, Pharmacy: [id number] Start Date: 12/07/21 Status: Ordered cocoa butter 0.884 mg/mg / phenylephrine hydrochloride 0.0025 mg/mg rectal suppository (9 sources) alpha-1 Adrenergic Agonist Start: 06-22-20 End: 07-09-20 Phenylephrine-[place] Butter (Preparation H(Pe,Cb)) 0.25-88.44 % Suppository Discontinued 1 SUPP [place] Twice daily as needed for hemorrhoids 0 [...] 07-31-2024 Start: 12-07-2021 take 1 capsule by [facility] once daily hydrochlorothiazide-triamterene 25 mg-37.5 mg Cap [...] Amide Local Anesthetic Start: 07-03-20 End: 09-11-19 25 apply 1 dose topically once daily Lidocaine (Lidocaine Pain Relief) 4 % Adhesive Patch,Medicated Discontinued 2 PATCH TOPICAL Daily 60 July 03, 2024 1:00am September 11, 2024 2:52pm metoprolol tartrate 25 mg oral tablet (19 sources) beta-Adrenergic Ha Start: 02-22-20 18 End: 12-16-19 19 take 1 tablet by [...] End: 09-11-2024 Start: 06-09-2023 nystatin (Myco statin) 615101 UNIT/GM powder 06/09/2023 Active Start: 06-09-2023 nystatin (Myco statin) 496859 UNIT/GM powder APPLY TO THE AFFECTED AREA(S) THREE TIMES DAILY FOR 30 DAYS 06/09/2023 Active Start: 06-09-2023 End: 06-19-2024 Nystatin (Nystop) 100,000 un it/gram Powder Discontinued 1 APPLIC TOPICAL Three times daily 09 19June 09, 2023 12:00am June 19, 2024 10:38am Start: 06-09-2023 End: 06-19-2024 [place]-3 Fatty Acids, FISH OIL, 360-1,200 mg cap (2 sources) take 1 capsule by mouth twice daily [place]-3 Fatty Acids, FISH OIL, 360-1,200 mg cap [...] q12hr, # 30 tab(s), Refills(s) 0, Pharmacy: [id number] Start Date: 02/01/22 Status: Ordered Comment on above: Take 100 mg by mouth twice daily as needed. 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; Translations: [OTH LONGTERM CURRENT DRUG THERAPY] Onset: 01-20-2022 Episodic Other aftercare (8 sources) half-way (current) use of anticoagulants; Translations: [Long-term (current) use of anticoagulants] Onset: 01-20-2022 07-04-2024 Episodic Other aftercare (20 sources) Taking high risk medication; Translations: [Other snf (current) drug therapy] Onset: 09-20-2023 09-20-2023 Episodic Other aftercare (20 sources) Long-term current use of anticoagulant; Translations: [half-way (current) use of anticoagulants] Onset: 09-17-2024 06-23-2024 [...] [facility] Facility Consent Formson 04-29-2025 Consent Forms [id number] Normal [facility] Urinalysis macro (dipstick) panel (U)on 04-01-2025 Bilirubin, UA Negative Negative - 4(70) +++ mg/dL [facility] Blood, UA Negative Negative - 50 Rodri/mcL [facility] Clarity, UA Clear [facility] Color, UA Yellow [facility] Glucose, UA Negative Negative - 2000(110) ++++ mg/dL [facility] Interpretation and review of laboratory results Normal [facility] Ketones, UA Negative Negative - 160(16) ++++ mg/dL [facility] Leukocytes, UA Negative Negative - 500+++ Danilo/mcL [facility] Nitrite, UA Negative Negative - Positive [facility] pH, UA 5 5 - 9 [facility] Protein, UA Negative Negative - 1999(20) ++++ mg/dL [facility] Spec Grav, UA 1.005 1 - 1.03 [facility] Urobilinogen, UA 0.2 0.2 - 12 mg/dL [facility] ALL CKMBon 02-26-2025 TBH CREATININE KINASE MB 2.35 ng/mL NINF - 3.60 ng/mL [facility] CCF CKon 02-26-2025 CK [Catalytic activity/Vol] 122 U/L 39 - 308 U/L [facility] No Panel Informationon 02-26 [facility] DR[facility] [place] [address] Magnetic Resonance Report Signed Patient: TAURUS GARCIA MR#: [id number] : 1945 Acct:[id number] Age/Sex: 79 / M ADM Date: 02/24/25 Loc: MRI Attending Dr: Kimberly Wright NP Ordering Physician: Kimberly Wright NP Date of Service: 02/24/25 Procedure(s): MR lumbar spine wo con Accession Number(s): [id number] cc: KOMAL SCHAFFER ; Kimberly Wright NP [address] [place] [address] Patient Name: TAURUS GARCIA MRN: [facility]:[id number] date: 1945 Sex: M Assigned Patient Location: MRI Current Patient Location: MRI Accession/Order Number: [id number] Exam Date: 02/24/2025 19:25 Report Date: 02/24/2025 [...] right neural foramina (more content not included)... [facility] Radiology, Radiologangelo sidhu MD - 02/24/2025 [place] [address] Magnetic Resonance Report Signed Patient: TAURUS GARCIA MR#: [id number] : 1945 Acct:[id number] Age/Sex: 79 / M ADM Date: 02/24/25 Loc: MRI Attending Dr: Kimberly Wright NP Ordering Physician: Kimberly Wright NP Date of Service: 02/24/25 Procedure(s): MR lumbar spine wo con Accession Number(s): [id number] cc: KOMAL SCHAFFER ; Kimberly Wright NP [place] [id number] Patient Name: TAURUS GARCIA MRN: [facility]:[id number] date: 1945 Sex: M Assigned Patient Location: MRI Current Patient Location: MRI Accession/Order Number: [id number] Exam Date: 02/24/2025 19:25 Report Date: 02/24/2025 [...] Menjivar M.D. 02/24/2025 7:31 PM Dictation Location: [place] [address] Electronically authenticated by: [id number] Y Date: 02/24/2025 19:31 Dictated By: Mihai Menjivar M.D. Signed By: 02/24/251933 DD/ 30 TD/TT: Transcriptio (more content not included)... [facility] Radiology Study observation (narrative) [facility] MR LUMBAR SPINE WO CONOrdere d By: Radiologist Radiology on 02-24-2025 [facility] Work Phone: XR LUMBAR SPINE 6V W BENDING on 02-24-2025 [place] [address] XRay Report Signed Patient: TAURUS GARCIA MR#: [id number] : 1945 Acct:[id number] Age/Sex: 79 / M ADM Date: 02/24/25 Loc: MRI Attending Dr: Kimberly Wright NP Ordering Physician: Kimberly Wright NP Date of Service: 02/24/25 Procedure(s): XR lumbar spine 6V w bending Accession Number(s): [id number] cc: KOMAL SCHAFFER ; Kimberly Wright NP [place] [id number] Patient Name: TAURUS GARCIA MRN: [facility]:[id number] date: 1945 Sex: M Assigned Patient Location: MRI Current Patient Location: MRI Accession/Order Number: [id number] Exam Date: 02/24/2025 16:24 Report Date: 02/24/2025 [...] Mock M.D. 02/24/2025 4:27 PM Dictation Location: [place] [address] Electronically authenticated by: [id number] Y Date: 02/24/2025 16:27 Dictated By: Aaron Mock D.O. Signed By: 02/24/25 1629 DD/ 26 TD/TT: Personnel Placement Specialist: [facility] Radiology Radiologangelo sidhu MD - 02/24/2025 [place] [address] XRay Report Signed Patient: TAURSU GARCIA MR#: [id number] : 1945 Acct:[id number] Age/Sex: 79 / M ADM Date: 02/24/25 Loc: MRI Attending Dr: Kimberly Wright NP Ordering Physician: Kimberly Wright NP Date of Service: 02/24/25 Procedure(s): XR lumbar spine 6V w bending Accession Number(s): [id number] cc: KOMAL SCHAFFER ; Kimberly Wright NP [place] [address] Patient Name: TAURUS GARCIA MRN: [facility]:[id number] date: 1945 Sex: M Assigned Patient Location: MRI Current Patient Location: MRI Accession/Order Number: [id number] Exam Date: 02/24/2025 16:24 Report Date: 02/24/2025 [...] Mock M.D. 02/24/2025 4:27 PM Dictation Location: [place] [address] Electronically authenticated by: [id number] Y Date: 02/24/2025 16:27 Dictated By: Aaron Mock D.O. Signed By: 02/24/25 1629 DD/ 1627 TD/TT: Personnel Placement Specialist: [facility] [employer] Radiology Study observation (narrative) [facility] XR LUMBAR SPINE 6V W BENDING Ordered By: Radiologist Radiology on 02-24-2025 [facility] [employer] Work Phone: Complete Blood Count Auto Di ffon 02-14-2025 Basophils (Bld) [#/Vol] 0.1 10*3/uL Normal 0.0-0.2 [facility] [facility] Comment on above: Result Comment: PERF ORMED BY:[address] [place], [place] [phone] MEDICAL DIRECTORJIMENA RICHARDSON M.D. Performed By: #### C BC, CMP, MG ####[address] Basophils/100 WBC (Bld) 1.4 % Normal . [facility] Comment on above: Performed By: #### C BC, CMP, MG ####[address] Eosinophils (Bld) [#/Vol] 0.1 10*3/uL Normal 0.0-0.45 [facility] Comment on above: Performed By: #### C BC, CMP, MG ####[address] Eosinophils/100 WBC (Bld) 1.5 % Normal . [facility] Comment on above: Performed By: #### C BC, CMP, MG ####[address] Erythrocyte distribution width (RBC) [Ratio] 16.8 % High 12.0-14.8 [facility] Comment on above: Performed By: #### C BC, CMP, MG ####[address] Hematocrit (Bld) [Volume fraction] 39.7 % Normal 38.8-50.0 [facility] Comment on above: Performed By: #### C BC, CMP, MG ####[address] Hemoglobin (Bld) [Mass/Vol] 13.3 g/dL Normal 13.0-17.0 [facility] Comment on above: Performed By: #### C BC, CMP, MG ####[address] Lymphocytes (Bld) [#/Vol] 1.3 10*3/uL Normal 1.00-4.8 [facility] Comment on above: Performed By: #### C BC, CMP, MG ####[address] Lymphocytes/100 WBC (Bld) 19.9 % Normal . [facility] Comment on above: Performed By: #### C BC, CMP, MG ####[address] MCH (RBC) [Entitic mass] 30.4 pg Normal 27.5-35.2 [facility] Comment on above: Performed By: #### C BC, CMP, MG ####[address] MCV (RBC) [Entitic vol] 90.5 fL Normal 83.5-101 [facility] Comment on above: Performed By: #### C BC, CMP, MG ####[address] Mean Corpuscular HGB Conc 33.6 g/dL Normal 32.5-35.6 [facility] Comment on above: Performed By: #### C BC, CMP, MG ####[address] Monocytes (Bld) [#/Vol] 0.9 10*3/uL High 0.0-0.8 [facility] Comment on above: Performed By: #### C BC, CMP, MG ####[address] Monocytes/100 WBC (Bld) 13.8 % Normal . [facility] Comment on above: Performed By: #### C BC, CMP, MG ####[address] Neutrophils (Bld) [#/Vol] 4.1 10*3/uL Normal 1.8-7.7 [facility] Comment on above: Performed By: #### C BC, CMP, MG ####[address] Neutrophils/100 WBC (Bld) 63.4 % Normal . [facility] Comment on above: Performed By: #### C BC, CMP, MG ####[address] NRBC% 0.1 /100{WBC} Normal 0-0.5 [facility] Comment on above: Performed By: #### C BC, CMP, MG ####[address] Platelet mean volume (Bld) [Entitic vol] 8.5 fL Normal 6.6-10.1 [facility] Comment on above: Performed By: #### C BC, CMP, MG ####[address] Platelets (Bld) [#/Vol] 182 10*3/uL Normal 150-450 [facility] Comment on above: Performed By: #### C BC, CMP, MG ####[address] RBC (Bld) [#/Vol] 4.39 10*6/uL Normal 3.90-5.60 [facility] Comment on above: Performed By: #### C BC, CMP, MG ####[address] WBC (Bld) [#/Vol] 6.5 10*3/uL Normal 4.1-10.5 [facility] Comment on above: Performed By: #### C BC, CMP, MG ####[address] White Blood Count 6.5 [CFU]/mL Normal 4.1-10.5 [facility] Comment on above: Performed By: #### C BC, CMP, MG ####[address] Comprehensive Metabolic Pane rc 02-14-2025 Albumin [Mass/Vol] 3.4 g/dL Low 3.5-5.7 [facility] Comment on above: Performed By: #### C BC, CMP, MG ####[address] Albumin/Globulin [Mass ratio] 1.5 {ratio} Normal [facility] Comment on above: Performed By: #### C BC, CMP, MG ####[place] [address] [place] [id number] [facility] ALP [Catalytic activity/Vol] 49 U/L Normal 34-104 [facility] Comment on above: Performed By: #### C BC, CMP, MG ####[place] [address] [place] [id number] [facility] ALT [Catalytic activity/Vol] 16 U/L Normal 7-52 [facility] Comment on above: Performed By: #### C BC, CMP, MG ####[place] [address] Anion gap [Moles/Vol] 12.1 mmol/L Normal 6.0-15.[address] [facility] Comment on above: Performed By: #### C BC, CMP, MG ####[address] AST [Catalytic activity/Vol] 22 U/L Normal 13-39 [facility] Comment on above: Performed By: #### C BC, CMP, MG ####[address] Bilirubin [Mass/Vol] 1.0 mg/dL Normal 0.3-1.0 [facility] Comment on above: Performed By: #### C BC, CMP, MG ####[place] [id number] [facility] Calcium [Mass/Vol] 8.7 mg/dL Normal 8.6-10.3 [facility] Comment on above: Performed By: #### C BC, CMP, MG ####[place] [id number] [facility] Chloride [Moles/Vol] 104 mmol/L Normal 98-107 [facility] Comment on above: Performed By: #### C BC, CMP, MG ####[place] [id number] [facility] CO2 [Moles/Vol] 27.7 mmol/L Normal 21.0-31.0 [facility] Comment on above: Performed By: #### C BC, CMP, MG ####[address] Creatinine [Mass/Vol] 1.37 mg/dL High 0.70-1.30 [facility] Comment on above: Performed By: #### C BC, CMP, MG ####[address] Creatinine Clr Calc Pharmacy 57.23 Normal [facility] Comment on above: Performed By: #### C BC, CMP, MG ####[address] GFR/1.73 sq M.predicted MDRD (S/P/Bld) [Vol rate/Area] 51.824 mL/min/{1.73_m2} Normal [facility] Comment on above: Performed By: #### C BC, CMP, MG ####[address] Globulin (S) [Mass/Vol] 2.3 g/dL Normal [facility] Comment on above: Performed By: #### C BC, CMP, MG ####[address] Glucose [Mass/Vol] 110 mg/dL High 70-100 [facility] Comment on above: Result Comment: [place] Glucose Reference Range is dependent on time and content of last meal. Glucose of more than 200 mg/dL in a nonstressed, ambulatory subject supports the diagnosis of Diabetes Mellitus. ADA recommended reference range Performed By: #### C BC, CMP, MG ####[address] Potassium [Moles/Vol] 3.8 mmol/L Normal 3.5-5.1 [facility] Comment on above: Performed By: #### C BC, CMP, MG ####[address] Protein [Mass/Vol] 5.7 g/dL Low 6.4-8.9 [facility] Comment on above: Performed By: #### C BC, CMP, MG ####[place] [address] Sodium [Moles/Vol] 140 mmol/L Normal 136-145 [facility] Comment on above: Performed By: #### C BC, CMP, MG ####[place] [address] [place] [id number] [facility] Urea nitrogen [Mass/Vol] 21 mg/dL Normal 7-25 [facility] Comment on above: Performed By: #### C BC, CMP, MG ####[place] [address] [place] [id number] [facility] Magnesiumon 02-14-2025 Magnesium [Mass/Vol] 1.8 mg/dL Low 1.9-2.7 [facility] Comment on above: Result Comment: PERF ORMED BY:[address] [place], [place] [phone] MEDICAL DIRECTORJIMENA RICHARDSON M.D. Performed By: #### C BC, CMP, MG ####[place] [id number] [facility] Alanine aminotransferase [En zymatic activity/volume] in Serum or PlasmaOrdered By: Kathleen Parker on 02-13-2025 ALT [Catalytic activity/Vol] 16 U/L Normal 7-52 [facility] Comment on above: Performed By: #### C MP, CBC, HS TROP, TSH3, MG ####[place] [id number] [facility] Albumin [Mass/volume] in Ser um or Plasma by Bromocresol green (BCG) dye binding methoOrdered By: Kathleen Keith on 02-13-2025 Albumin BCG dye [Mass/Vol] 3.5 g/dL 3.5-5.7 [facility] Alkaline phosphatase [Enzyma tic activity/volume] in Serum or PlasmaOrdered By: Kathleenwarner Browningb on 02-13-2025 ALP [Catalytic activity/Vol] 48 U/L Normal 34-104 [facility] Comment on above: Performed By: #### C MP, CBC, HS TROP, TSH3, MG ####[place] [id number] [facility] Appearance of UrineOrdered B y: Kathleenwarner Browningb on 02-13-2025 Appearance (U) Clear Normal Clear [facility] Comment on above: Order Comment: Name Collection Type:: Voided Performed By: #### A DDONUAPLUS ####[address] Aspartate aminotransferase [ Enzymatic activity/volume] in Serum or PlasmaOrdered By: Kathleen Keith on 02-13-2025 AST [Catalytic activity/Vol] 24 U/L Normal 13-39 [facility] Comment on above: Performed By: #### C MP, CBC, HS TROP, TSH3, MG ####[address] BNP ser/plasOrdered By: Donaldo De Leon on 02-13-2025 Natriuretic peptide B (Bld) [Mass/Vol] 38.0 pg/mL Normal 5-100 [facility] Comment on above: Result Comment: PERF ORMED BY:[place] [address] [address] [place], [place] [phone] MEDICAL CHAVEZ RICHARDSON M.D. Performed By: #### B AIR SAMPLER ####[address] Bacteria [Presence] in Urine by AutomatedOrdered By: Kathleen Keith on 02-13-2025 Bacteria Auto Ql (U) Rare [HPF] None Seen [facility] Basophils [#/volume] in Bloo d by Automated countOrdered By: Kathleenwarner Parker on 02-13-2025 Basophils (Bld) [#/Vol] 0.1 10*3/uL Normal 0.0-0.2 [facility] Comment on above: Result Comment: PERF ORMED BY:[place] [address] [place], [place] [phone] MEDICAL CHAVEZ RICHARDSON M.D. Performed By: #### C MP, CBC, HS TROP, TSH3, MG ####[place] [address] [place] [id number] [facility] Basophils/100 leukocytes in Blood by Automated countOrdered By: Kathleen Parker on 02-13-2025 Basophils/100 WBC (Bld) 1.2 % Normal . [facility] Comment on above: Performed By: #### C MP, CBC, HS TROP, TSH3, MG ####[place] [address] [place] [id number] [facility] Bilirubin Test strip Ql (U)O rdered By: Kathleen Parker on 02-13-2025 Bilirubin Ql (U) Negative Negative [facility] Bilirubin.total [Mass/volume ] in Serum or PlasmaOrdered By: Kathleen Parker on 02-13-2025 Bilirubin [Mass/Vol] 1.1 mg/dL High 0.3-1.0 [facility] Comment on above: Performed By: #### C MP, CBC, HS TROP, TSH3, MG ####[place] [id number] [facility] CT angio neckon 02-13-2025 CT angio neck Normal [facility] CT head/brain wo conon 02-13 CT head/brain wo con Normal [facility] Calcium [Mass/volume] in Ser um or PlasmaOrdered By: Kathleen Parker on 02-13-2025 Calcium [Mass/Vol] 9.0 mg/dL Normal 8.6-10.[address] [facility] Comment on above: Performed By: #### C MP, CBC, HS TROP, TSH3, MG ####[place] [id number] [facility] Capillary blood glucose cheo urement by glucometer (mass/volume)Ordered By: Kathleen Parker on 02-13-2025 Glucose [Mass/Vol] 105 mg/dL Normal [facility] Comment on above: Random Glucose Refer ence Range is dependent on time and content of last meal. Glucose of more than 200 mg/dL in a nonstressed, ambulatory subject supports the diagnosis of Diabetes Mellitus. Result Comment: [place] om Glucose Reference Range is dependent on time and content of last meal. Glucose of more than 200 mg/dL in a nonstressed, ambulatory subject supports the diagnosis of Diabetes Mellitus.PERFORMED BY:[address] [place], [place] [phone] MEDICAL DIRECTORJIMENA RICHARDSON M.D. Performed By: #### G ANASTASIIA ####Point of Care testing, Carbon dioxide, total [Moles /volume] in Serum or PlasmaOrdered By: Kathleen Parker on 02-13-2025 CO2 [Moles/Vol] 29.4 mmol/L Normal 21.0-31.0 [facility] Comment on above: Performed By: #### C MP, CBC, HS TROP, TSH3, MG ####[place] [id number] [facility] Chloride [Moles/volume] in [place] or PlasmaOrdered By: Kathleen Parker on 02-13-2025 Chloride [Moles/Vol] 105 mmol/L Normal 98-107 [facility] Comment on above: Performed By: #### C MP, CBC, HS TROP, TSH3, MG ####[place] [id number] [facility] Color of Urine by AutoOrdere d By: Kathleen Parker on 02-13-2025 Color (U) Yellow Normal Yellow [facility] Comment on above: Order Comment: Name Collection Type:: Voided Performed By: #### A DDONUAPLUS ####[place] [id number] [facility] Complete Blood Count Auto Di ffon 02-13-2025 Mean Corpuscular HGB Conc 33.3 g/dL Normal 32.5-35.6 [facility] Comment on above: Performed By: #### C MP, CBC, HS TROP, TSH3, MG ####[place] [id number] [facility] Monocytes/100 WBC (Bld) 20.92 % High 0.00-20.00 [facility] Comment on above: Result Comment: For adults in ED, MDW > 20.0 may be associated with a higher risk of sepsis during the first 12 hrs of hospital admission Performed By: #### C MP, CBC, HS TROP, TSH3, MG ####[address] NRBC% 0.0 /100{WBC} Normal 0-0.5 [facility] Comment on above: Performed By: #### C MP, CBC, HS TROP, TSH3, MG ####[address] White Blood Count 7.3 [CFU]/mL Normal 4.1-10.5 [facility] Comment on above: Performed By: #### C MP, CBC, HS TROP, TSH3, MG ####[address] Comprehensive Metabolic Pane rc 02-13-2025 Albumin [Mass/Vol] 3.5 g/dL Normal 3.5-5.7 [facility] Comment on above: Performed By: #### C MP, CBC, HS TROP, TSH3, MG ####[address] Creatinine Clr Calc Pharmacy 64.21 Normal [facility] Comment on above: Performed By: #### C MP, CBC, HS TROP, TSH3, MG ####[address] GFR/1.73 sq M.predicted MDRD (S/P/Bld) [Vol rate/Area] 58.980 mL/min/{1.73_m2} Normal [facility] Comment on above: Performed By: #### C MP, CBC, HS TROP, TSH3, MG ####[address] Creatinine [Mass/volume] in Serum or PlasmaOrdered By: Kathleen Parker on 02-13-2025 Creatinine [Mass/Vol] 1.23 mg/dL Normal 0.70-1.30 [facility] Comment on above: Performed By: #### C MP, CBC, HS TROP, TSH3, MG ####[address] [place] [address] [facility] Dipstick and Microscopicon 0 02-13-2025 Bacteria,Urine Rare Normal None Seen [facility] Comment on above: Order Comment: Name Collection Type:: Voided Performed By: #### A DDONUAPLUS ####[address] [address] [facility] Bilirubin,Urine Negative Normal Negative [facility] Comment on above: Order Comment: Name Collection Type:: Voided Performed By: #### A DDONUAPLUS ####[address] [address] [facility] Glucose Ql (U) Normal Normal Normal [facility] Comment on above: Order Comment: Name Collection Type:: Voided Performed By: #### A DDONUAPLUS ####[address] [address] [facility] Hyaline Casts,Urine None Normal 0-8 [facility] Comment on above: Order Comment: Name Collection Type:: Voided Performed By: #### A DDONUAPLUS ####[address] [address] [facility] Mucus,Urine Rare Normal [facility] Comment on above: Order Comment: Name Collection Type:: Voided Result Comment: PERF ORMED BY:[address] [place], [place] [phone] MEDICAL CHAVEZ RICHARDSON M.D. Performed By: #### A DDONUAPLUS ####[address] [address] [place] Nitrite,Urine Negative Normal Negative [facility] Comment on above: Order Comment: Name Collection Type:: Voided Performed By: #### A DDONUAPLUS ####[address] [address] [facility] Occult Blood,Urine 1+ Normal Negative [facility] Comment on above: Order Comment: Name Collection Type:: Voided Result Comment: PERF ORMED BY:[address] [place], [place] [phone] MEDICAL CHAVEZ RICHARDSON M.D. Performed By: #### A DDONUAPLUS ####[place] [id number] [facility] Protein,Urine Negative Normal Negative [facility] Comment on above: Order Comment: Name Collection Type:: Voided Performed By: #### A DDONUAPLUS ####[address] [address] [facility] RBC,Urine 10-19 Normal 0-4 [facility] Comment on above: Order Comment: Name Collection Type:: Voided Performed By: #### A DDONUAPLUS ####[place] [id number] [facility] Specificy [place],Urine 1.018 Normal 1.001-1.03 0 [facility] Comment on above: Order Comment: Name Collection Type:: Voided Performed By: #### A DDONUAPLUS ####[address] Squamous Epithelial Cell,Urine 1-2 Normal 0-2 [facility] Comment on above: Order Comment: Name Collection Type:: Voided Performed By: #### A DDONUAPLUS ####[place] [id number] [facility] Urobilinogen,Urine Normal Normal Normal [facility] Comment on above: Order Comment: Name Collection Type:: Voided Performed By: #### A DDONUAPLUS ####[place] [id number] [facility] WBC,Urine 1-2 Normal 0-4 [facility] Comment on above: Order Comment: Name Collection Type:: Voided Performed By: #### A DDONUAPLUS ####[place] [id number] [facility] ECG 12 lead ECGon 02-13-2025 ECG 12 lead ECG Normal [facility] Eosinophils [#/volume] in Bl ood by Automated countOrdered By: Kathleen Parker on 02-13-2025 Eosinophils (Bld) [#/Vol] 0.1 10*3/uL Normal 0.0-0.45 [facility] Comment on above: Performed By: #### C MP, CBC, HS TROP, TSH3, MG ####[facility] [id number] Eosinophils/100 leukocytes i n Blood by Automated countOrdered By: Kathleen Parker on 02-13-2025 Eosinophils/100 WBC (Bld) 1.0 % Normal . [facility] Comment on above: Performed By: #### C MP, CBC, HS TROP, TSH3, MG ####[facility] [id number] Epithelial cells.squamous [# /area] in Urine sediment by Automated countOrdered By: Kathleenwarner Parker on 02-13-2025 Epithelial cells.squamous Auto (Urine sed) [#/Area] 1-2 [HPF] 0-2 [facility] Erythrocyte distribution wid th [Ratio] by Automated countOrdered By: Kathleen Parker on 02-13-2025 Erythrocyte distribution width (RBC) [Ratio] 16.6 % High 12.0-14.8 [facility] Comment on above: Performed By: #### C MP, CBC, HS TROP, TSH3, MG ####[address] Erythrocytes [#/area] in Uri ne sediment by Automated countOrdered By: Kathleen Parker on 02-13-2025 RBC Auto (Urine sed) [#/Area] 10-19 [HPF] High 0-4 [facility] Erythrocytes [#/volume] in B lood by Automated countOrdered By: Kathleen Parker on 02-13-2025 RBC (Bld) [#/Vol] 4.33 10*6/uL Normal 3.90-5.60 [facility] Comment on above: Performed By: #### C MP, CBC, HS TROP, TSH3, MG ####[facility] [id number] Glucose [Mass/volume] in Ser um or PlasmaOrdered By: Kathleen Browningb on 02-13-2025 Glucose [Mass/Vol] 98 mg/dL Normal 70-[address] [facility] Comment on above: ADA recommended refe rence rangeRandom Glucose Reference Range is dependent on time and content of last meal. Glucose of more than 200 mg/dL in a nonstressed, ambulatory subject supports the diagnosis of Diabetes Mellitus. Result Comment: [place] om Glucose Reference Range is dependent on time and content of last meal. Glucose of more than 200 mg/dL in a nonstressed, ambulatory subject supports the diagnosis of Diabetes Mellitus. ADA recommended reference range Performed By: #### C MP, CBC, HS TROP, TSH3, MG ####[facility] [id number] [place] [id number] [facility] Glucose [Mass/volume] in Uri ne by Test stripOrdered By: Kathleen Parker on 02-13-2025 Glucose Test strip (U) [Mass/Vol] Normal mg/dL Normal [facility] Hematocrit [Volume Fraction] of Blood by Automated countOrdered By: Kathleen Parker on 02-13-2025 Hematocrit (Bld) [Volume fraction] 39.2 % Normal 38.8-50.0 [facility] Comment on above: Performed By: #### C MP, CBC, HS TROP, TSH3, MG ####[place] [address] [place] [id number] [facility] Hemoglobin Test strip Ql (U) Ordered By: Kathleen Parker on 02-13-2025 Hemoglobin Ql (U) 1+ High Negative [facility] Hemoglobin [Mass/volume] in BloodOrdered By: Kathleen Parker on 02-13-2025 Hemoglobin (Bld) [Mass/Vol] 13.1 g/dL Normal 13.0-17.0 [facility] Comment on above: Performed By: #### C MP, CBC, HS TROP, TSH3, MG ####[address] [address] [facility] Hyaline casts [#/area] in Ur ine sediment by Automated countOrdered By: Kathleen Parker on 02-13-2025 Hyaline casts Auto (Urine sed) [#/Area] None [LPF] 0-8 [facility] Ketones [Presence] in Urine by Test stripOrdered By: Kathleen Parker on 02-13-2025 Ketones Ql (U) 1+ Normal Negative [facility] Comment on above: Order Comment: Name Collection Type:: Voided Performed By: #### A DDONUAPLUS ####[address] Leukocyte esterase [Presence ] in Urine by Test stripOrdered By: Kathleen Parker on 02-13-2025 Leukocyte esterase Test strip Ql (U) Negative Normal Negative [facility] Comment on above: Order Comment: Name Collection Type:: Voided Performed By: #### A DDONUAPLUS ####[address] Leukocytes [#/area] in Urine sediment by Automated countOrdered By: Kathleen Parker on 02-13-2025 WBC Auto (Urine sed) [#/Area] 1-2 [HPF] 0-4 [facility] Leukocytes [#/volume] correc blessing for nucleated erythrocytes in Blood by Automated counOrdered By: Kathleen Parker on 02-13-2025 WBC corrected for nucl RBC Auto (Bld) [#/Vol] 7.3 10*3/uL 4.1-10.5 [facility] Leukocytes [#/volume] in Blo od by Automated countOrdered By: Kathleen Parker on 02-13-2025 WBC (Bld) [#/Vol] 7.3 10*3/uL Normal 4.1-10.[address] [facility] Comment on above: Performed By: #### C MP, CBC, HS TROP, TSH3, MG ####[place] [address] [place] Lymphocytes [#/volume] in Bl ood by Automated countOrdered By: Kathleen Parker on 02-13-2025 Lymphocytes (Bld) [#/Vol] 1.2 10*3/uL Normal 1.00-4.8 [facility] Comment on above: Performed By: #### C MP, CBC, HS TROP, TSH3, MG ####[address] Lymphocytes/100 leukocytes i n Blood by Automated countOrdered By: Kathleen Parker on 02-13-2025 Lymphocytes/100 WBC (Bld) 16.7 % Normal . [facility] Comment on above: Performed By: #### C MP, CBC, HS TROP, TSH3, MG ####[place] [address] MCH [Entitic mass] by Automa blessing countOrdered By: Kathleen Parker on 02-13-2025 MCH (RBC) [Entitic mass] 30.2 pg Normal 27.5-35.2 [facility] Comment on above: Performed By: #### C MP, CBC, HS TROP, TSH3, MG ####[place] [address] MCHC Auto (RBC) [Mass/Vol]Or dered By: Kathleen Parker on 02-13-2025 MCHC (RBC) [Mass/Vol] 33.3 g/dL 32.5-35.6 [facility] MCV [Entitic volume] by Auto mated countOrdered By: Kathleen Parker on 02-13-2025 MCV (RBC) [Entitic vol] 90.6 fL Normal 83.5-101 [facility] Comment on above: Performed By: #### C MP, CBC, HS TROP, TSH3, MG ####[address] Magnesium [Mass/volume] in [place] or PlasmaOrdered By: Kathleen Parker on 02-13-2025 Magnesium [Mass/Vol] 1.9 mg/dL Normal 1.9-2.7 [facility] Comment on above: Performed By: #### C MP, CBC, HS TROP, TSH3, MG ####[place] [id number] [facility] Monocyte distribution width [Entitic volume] in Blood by AutomatedOrdered By: Kathleen Parker on 02-13-2025 Monocyte distribution width Auto (Bld) [Entitic vol] 20.92 % High 0.00-20.00 [facility] Comment on above: For adults in ED, MD W > 20.0 may be associated with a higher risk of sepsis during the first 12 hrs of hospital admission Monocytes [#/volume] in Bloo d by Automated countOrdered By: Kathleen Parker on 02-13-2025 Monocytes (Bld) [#/Vol] 1.1 10*3/uL High 0.0-0.8 [facility] Comment on above: Performed By: #### C MP, CBC, HS TROP, TSH3, MG ####[facility] [id number] [place] [id number] [facility] Monocytes/100 leukocytes in Blood by Automated countOrdered By: Kathleen Parker on 02-13-2025 Monocytes/100 WBC (Bld) 15.5 % Normal . [facility] Comment on above: Performed By: #### C MP, CBC, HS TROP, TSH3, MG ####[place] [address] Mucus [Presence] in Urine by AutomatedOrdered By: Kathleen Parker on 02-13-2025 Mucus Auto Ql (U) Rare [LPF] [facility] Neutrophils [#/volume] in Bl ood by Automated countOrdered By: Kathleen Parker on 02-13-2025 Neutrophils (Bld) [#/Vol] 4.8 10*3/uL Normal 1.8-7.7 [facility] Comment on above: Performed By: #### C MP, CBC, HS TROP, TSH3, MG ####[facility] [address] [place] [id number] [facility] Neutrophils/100 leukocytes i n Blood by Automated countOrdered By: Kathleen Parker on 02-13-2025 Neutrophils/100 WBC (Bld) 65.6 % Normal . [facility] Comment on above: Performed By: #### C MP, CBC, HS TROP, TSH3, MG ####[place] [address] [place] [address] [place] Nitrite Test strip Ql (U)Ord ered By: Kathleen Parker on 02-13-2025 Nitrite Ql (U) Negative Negative [facility] No Panel InformationOrdered By: Kathleen Parker on 02-13-2025 Estimated GFR (CKD-EPI) 58.980 mL/Min [facility] Creatinine Clearance (Chem 64.21 [facility] Nucleated erythrocytes [Pres ence] in Blood by Automated countOrdered By: Kathleen Parker on 02-13-2025 Nucleated RBC Auto Ql (Bld) 0.0 /100{WBC} 0-0.5 [facility] Platelet mean volume [Entiti c volume] in Blood by Automated countOrdered By: Kathleen Parkre on 02-13-2025 Platelet mean volume (Bld) [Entitic vol] 8.3 fL Normal 6.6-10.1 [facility] Comment on above: Performed By: #### C MP, CBC, HS TROP, TSH3, MG ####[place] [address] [place] [id number] [facility] Platelets [#/volume] in Bloo d by Automated countOrdered By: Kathleen Parker on 02-13-2025 Platelets (Bld) [#/Vol] 168 10*3/uL Normal 150-450 [facility] Comment on above: Performed By: #### C MP, CBC, HS TROP, TSH3, MG ####[place] [id number] [facility] Potassium [Moles/volume] in Serum or PlasmaOrdered By: Kathleen Parker on 02-13-2025 Potassium [Moles/Vol] 4.0 mmol/L Normal 3.5-5.1 [facility] Comment on above: Performed By: #### C MP, CBC, HS TROP, TSH3, MG ####[place] [id number] [facility] Protein Test strip (U) [Mass /Vol]Ordered By: Kathleen Parker on 02-13-2025 Protein (U) [Mass/Vol] Negative Negative [facility] Protein [Mass/volume] in Ser um or PlasmaOrdered By: Kathleen Parker on 02-13-2025 Protein [Mass/Vol] 5.7 g/dL Low 6.4-8.[address] [facility] Comment on above: Performed By: #### C MP, CBC, HS TROP, TSH3, MG ####[place] [id number] [facility] Serum globulin measurement b y calculation (mass/volume)Ordered By: Kathleen Parker on 02-13-2025 Globulin (S) [Mass/Vol] 2.2 g/dL [facility] Comment on above: Performed By: #### C MP, CBC, HS TROP, TSH3, MG ####[place] [address] Serum or plasma albumin/glob ulin mass ratioOrdered By: Kathleen Parker on 02-13-2025 Albumin/Globulin [Mass ratio] 1.6 {ratio} [facility] Comment on above: Performed By: #### C MP, CBC, HS TROP, TSH3, MG ####[place] [address] Serum or plasma anion gap de terminationOrdered By: Kathleen Parker on 02-13-2025 Anion gap [Moles/Vol] 9.6 mmol/L Normal 6.0-15.0 [facility] Comment on above: Performed By: #### C MP, CBC, HS TROP, TSH3, MG ####[address] Sodium [Moles/volume] in Ser um or PlasmaOrdered By: Kathleen Parker on 02-13-2025 Sodium [Moles/Vol] 140 mmol/L Normal 136-[address] [facility] Comment on above: Performed By: #### C MP, CBC, HS TROP, TSH3, MG ####[address] Specific gravity Test strip (U) [Rel density]Ordered By: Kathleen Parker on 02-13-2025 Specific gravity (U) [Rel density] 1.018 1.001-1.03 0 [facility] Thyrotropin [Units/volume] i n Serum or PlasmaOrdered By: Kathleen Parker on 02-13-2025 TSH Qn 1.43 m[IU]/L Normal 0.45-5.33 [facility] Comment on above: Result Comment: PERF ORMED BY:[address] [place], [place] [id number] MEDICAL DIRECTORJIMENA RICHARDSON M.D. Performed By: #### C MP, CBC, HS TROP, TSH3, MG ####[place] [address] [place] [id number] [facility] Troponin I High Sensitivityo n 02-13-2025 Troponin I High Sensitivity 10 Normal 0-20 [facility] Comment on above: Result Comment: The Troponin units of report have been changed to meet the Chest Pain Accreditation requirement, element EC5.M1l2. Troponin units are changed from pg/ml to ng/L. Also, the decimal is removed and results are in whole numbers.PERFORMED BY:[address] [place], [place] [id number] MEDICAL DIRECTORJIMENA RICHARDSON M.D. Performed By: #### C MP, CBC, HS TROP, TSH3, MG ####[place] [address] [place] [address] [facility] Troponin I.cardiac [Mass/vol ume] in Serum or Plasma by Detection limit <= 0.01 ng/mLOrdered By: Kathleen Parker on 02-13-2025 Troponin I.cardiac DL <= 0.01 ng/mL [Mass/Vol] 10 ng/L 0-20 [facility] Comment on above: The Troponin units o f report have been changed to meet the Chest Pain Accreditation requirement, element EC5.M1l2. Troponin units are changed from pg/ml to ng/L. Also, the decimal is removed and results are in whole numbers. Urea nitrogen [Mass/volume] in Serum or PlasmaOrdered By: Kathleen Parker on 02-13-2025 Urea nitrogen [Mass/Vol] 24 mg/dL Normal 7-25 [facility] Comment on above: Performed By: #### C MP, CBC, HS TROP, TSH3, MG ####[place] [id number] [facility] Urobilinogen Test strip (U) [Mass/Vol]Ordered By: Kathleen Parker on 02-13-2025 Urobilinogen (U) [Mass/Vol] Normal mg/dL Normal [facility] X-ray reportOrdered By: See Diallo on 02-13-2025 Study report [facility] [address] [place] [address] XRay Report Signed Patient: Taurus Garcia MR#: [id number] : 1945 Acct:[id number] Age/Sex: 79 / M ADM Date: 5 Loc: ER Room: Type: [facility] ER Attending Dr: Copies to: Kathleen [...] Jr., D.O. 02/13/2025 10:06 AM Dictation Location: [place] [address] Transcribed By: [facility] 02/13/25 1006 Dictated By: Silvestre Diallo Jr, DO 02/13/25 1005 Signed By: 02/13/25 1006 [facility] XR chest 2V*on 02-13-2025 XR chest 2V* Normal [facility] pH of Urine by Test stripOrd ered By: Kathleen Parker on 02-13-2025 pH (U) 5.5 [pH] Normal 5.0-9.0 [facility] Comment on above: Order Comment: Name Collection Type:: Voided Performed By: #### A DDONUAPLUS ####[facility] [address] [place] [address] [facility] XR Foot - left 3 [facility] Result: Notable medial distal tuft fracture of the distal phalanx with slight displacement [facility] Radiology Study observation (narrative) [facility] BASIC METABOLIC PANEL WITH A NION GAPon 11-09-2024 BUN/CREATININE RATIO SEE NOTE: Normal 6-22 [facility] Comment on above: Result Comment: Not Reported: BUN and Creatinine are within reference range. Performed By: #### 9 2028 #### [facility] [place] [address] Booster Assembler: Daniele Carlson MD Calcium [Mass/Vol] 9.1 mg/dL Normal 8.6-10.3 [facility] Comment on above: Performed By: #### 9 2498 #### [facility] [place] [address] Booster Assembler: Daniele Carlson MD Chloride [Moles/Vol] 101 mmol/L Normal 98-110 [facility] Comment on above: Performed By: #### 9 2498 #### [facility] [place] [address] Booster Assembler: Daniele Carlson MD CO2 [Moles/Vol] 29 mmol/L Normal 20-32 [facility] Comment on above: Performed By: #### 9 2498 #### [facility] [place] [address] Booster Assembler: Daniele Carlson MD Creatinine [Mass/Vol] 1.03 mg/dL Normal 0.70-1.[address] [facility] Comment on above: Performed By: #### 9 2498 #### [facility] [place] [address] Booster Assembler: Daniele Carlson MD ELECTROLYTE BALANCE 12 mmol/L (calc) Normal 7-17 [facility] Comment on above: Performed By: #### 9 2498 #### [facility] [place] [address] Booster Assembler: Daniele Carlson MD GFR/1.73 sq M.predicted among non-blacks MDRD (S/P/Bld) [Vol rate/Area] 73 mL/min/{1.73_m2} Normal > OR = 60 [facility] Comment on above: Performed By: #### 9 2498 #### [facility] [place] [address] Booster Assembler: Daniele Carlson MD Glucose [Mass/Vol] 169 mg/dL High 65-99 [facility] Comment on above: Result Comment: Fasting reference interval For someone without known diabetes, a glucose value >125 mg/dL indicates that they may have diabetes and this should be confirmed with a follow-up test. Performed By: #### 9 2498 #### [facility] [address], [address] [place] [address] Booster Assembler: Daniele Carlson MD Potassium [Moles/Vol] 3.6 mmol/L Normal 3.5-5.[address] [facility] [address] [facility] Comment on above: Performed By: #### 9 2498 #### [facility] [address], [address] [place] [address] Booster Assembler: Daniele Carlson MD Sodium [Moles/Vol] 142 mmol/L Normal 135-146 [facility] Comment on above: Performed By: #### 9 2498 #### [facility] [place] [address] Booster Assembler: Daniele Carlson MD Urea nitrogen [Mass/Vol] 17 mg/dL Normal 7-25 [facility] Comment on above: Performed By: #### 9 2498 #### [facility] [place] [address] Booster Assembler: Daniele Carlson MD [facility] METABOLIC PANE [facility] 11-06-2024 Albumin [Mass/Vol] 4.1 g/dL Normal 3.6-5.1 [facility] Comment on above: Order Comment: FASTI NG:NO FASTING: NO Performed By: #### 1 0231 #### [facility] [place] [address] Booster Assembler: Daniele Carlson MD Albumin/Globulin [Mass ratio] 1.8 {ratio} Normal 1.0-2.5 [facility] Comment on above: Order Comment: FASTI NG:NO FASTING: NO Performed By: #### 1 0238 #### [facility] [place] [address] Booster Assembler: Daniele Carlson MD ALP [Catalytic activity/Vol] 70 U/L Normal 35-144 [facility] Comment on above: Order Comment: FASTI NG:NO FASTING: NO Performed By: #### 1 0231 #### [facility] [place] [address] Booster Assembler: Daniele Carlson MD ALT [Catalytic activity/Vol] 27 U/L Normal 9-46 [facility] Comment on above: Order Comment: FASTI NG:NO FASTING: NO Performed By: #### 1 0231 #### [facility] [address], [address] [place] [address] Booster Assembler: Daniele Carlson MD AST [Catalytic activity/Vol] 23 U/L Normal 10-35 [facility] Comment on above: Order Comment: FASTI NG:NO FASTING: NO Performed By: #### 1 0231 #### [facility] [place] [address] Booster Assembler: Daniele Carlson MD Bilirubin [Mass/Vol] 0.8 mg/dL Normal 0.2-1.2 [facility] Comment on above: Order Comment: FASTI NG:NO FASTING: NO Performed By: #### 1 0231 #### [facility] [place] [address] Booster Assembler: Daniele Carlson MD BUN/CREATININE RATIO SEE NOTE: Normal 6-22 [facility] Comment on above: Order Comment: FASTI NG:NO FASTING: NO Result Comment: Not Reported: BUN and Creatinine are within reference range. Performed By: #### 1 0231 #### [facility] [place] [address] Booster Assembler: Daniele Carlson MD Calcium [Mass/Vol] 9.3 mg/dL Normal 8.6-10.3 [facility] Comment on above: Order Comment: FASTI NG:NO FASTING: NO Performed By: #### 1 0231 #### [facility] [place] [address] Booster Assembler: Daniele Carlson MD Chloride [Moles/Vol] 102 mmol/L Normal 98-110 [facility] Comment on above: Order Comment: FASTI NG:NO FASTING: NO Performed By: #### 1 0231 #### [facility] [place] [address] Booster Assembler: Daniele Carlson MD CO2 [Moles/Vol] 27 mmol/L Normal 20-32 [facility] Comment on above: Order Comment: FASTI NG:NO FASTING: NO Performed By: #### 1 0231 #### [facility] [place] [address] Booster Assembler: Daniele Carlson MD Creatinine [Mass/Vol] 1.11 mg/dL Normal 0.70-1.22 [facility] Comment on above: Order Comment: FASTI NG:NO FASTING: NO Performed By: #### 1 0231 #### [facility] [place] [address] Booster Assembler: Daniele Carlson MD GFR/1.73 sq M.predicted among non-blacks MDRD (S/P/Bld) [Vol rate/Area] 67 mL/min/{1.73_m2} Normal > OR = 60 [facility] Comment on above: Order Comment: FASTI NG:NO FASTING: NO Performed By: #### 1 0231 #### [facility] [place] [address] Booster Assembler: Daniele Carlson MD Globulin (S) [Mass/Vol] 2.3 g/dL Normal 1.9-3.7 [facility] Comment on above: Order Comment: FASTI NG:NO FASTING: NO Performed By: #### 1 0231 #### [facility] [place] [address] Booster Assembler: Daniele Carlson MD Glucose [Mass/Vol] 127 mg/dL Normal 65-139 [facility] Comment on above: Order Comment: FASTI NG:NO FASTING: NO Result Comment: Non-fasting reference interval For someone without known diabetes, a glucose value >125 mg/dL indicates that they may have diabetes and this should be confirmed with a follow-up test. Performed By: #### 1 0231 #### [facility] [place] [address] Booster Assembler: Daniele Carlson MD Potassium [Moles/Vol] 3.5 mmol/L Normal 3.5-5.[address] [facility] [address] [facility] Comment on above: Order Comment: FASTI NG:NO FASTING: NO Performed By: #### 1 0231 #### [facility] [place] [address] Booster Assembler: Daniele Carlson MD Protein [Mass/Vol] 6.4 g/dL Normal 6.1-8.1 [facility] Comment on above: Order Comment: FASTI NG:NO FASTING: NO Performed By: #### 1 0231 #### [facility] [place] [address] Booster Assembler: Daniele Carlson MD Sodium [Moles/Vol] 143 mmol/L Normal 135-146 [facility] Comment on above: Order Comment: FASTI NG:NO FASTING: NO Performed By: #### 1 0231 #### [facility] [place] [address] Booster Assembler: Daniele Carlson MD Urea nitrogen [Mass/Vol] 17 mg/dL Normal 7-25 [facility] Comment on above: Order Comment: FASTI NG:NO FASTING: NO Performed By: #### 1 0231 #### [facility] [place] [address] Booster Assembler: Daniele Carlson MD XR Knee - bilateral 4 Viewso n 10-22-2024 [place] [address] XRay Report Signed Patient: TAURUS GARCIA MR#: [id number] : 1945 Acct:[id number] Age/Sex: 79 / M ADM Date: 10/22/24 Loc: RAD Attending Dr: France Wyman M.D. Ordering Physician: France Wyman M.D. Date of Service: 10/22/24 Procedure(s): XR knee ARCHIE 4V Accession Number(s): [id number] cc: KOMAL SCHAFFER ; France Wyman M.D. The [place] [address] Patient Name: TAURUS GARCIA MRN: [facility]:[id number] date: 1945 Sex: M Assigned Patient Location: [facility] Current Patient Location: [facility] Accession/Order Number: [id number] Exam Date: 10/22/2024 15:22 Report Date: 10/22/2024 [...] Aide Moe M.D.10/22/2024 3:26 PM Dictation Location: [place] [address] Electronically authenticated by: [id number] Y Date: 10/22/2024 15:26 Dictated By: Aide Moe M.D. Signed By: 10/22/24 1529 DD/ 1526 TD/TT: Personnel Placement Specialist: [facility] Radiology Radiologangelo sidhu MD - 10/22/2024 [place] [address] XRay Report Signed Patient: TAURUS GARCIA MR#: [id number] : 1945 Acct:[id number] Age/Sex: 79 / M ADM Date: 10/22/24 Loc: RAD Attending Dr: France Wyman M.D. Ordering Physician: France Wyman M.D. Date of Service: 10/22/24 Procedure(s): XR knee ARCHIE 4V Accession Number(s): [id number] cc: KOMAL SCHAFFER ; France Wyman M.D. [place] [address] Patient Name: TAURUS GARCIA MRN: [id number] date: 1945 Sex: M Assigned Patient Location: [facility] Current Patient Location: [facility] Accession/Order Number: [id number] Exam Date: 10/22/2024 15:22 Report Date: 10/22/2024 [...] Aide Moe M.D.10/22/2024 3:26 PM Dictation Location: [place] [address] Electronically authenticated by: [id number] Y Date: 10/22/2024 15:26 Dictated By: Aide Moe M.D. Signed By: 10/22/24 1529 DD/ 1526 TD/TT: Personnel Placement Specialist: [facility] Radiology Study observation (narrative) [facility] XR Knee - bilateral 4 ViewsO rdered By: Radiologist Radiology on 10-22-2024 [facility] [employer] Work Phone: COMPREHENSIVE METABOLIC PANE Rc 10-16-2024 Albumin [Mass/Vol] 3.9 g/dL Normal 3.6-5.1 [facility] Comment on above: Order Comment: DIFFI CULT DRAW- 10/14/2024 FASTING:YES FASTING: YES Performed By: #### 1 0231 #### [facility] of [address], [address] [place] [address] Booster Assembler: Daniele Carlson MD Albumin/Globulin [Mass ratio] 1.9 {ratio} Normal 1.0-2.5 [facility] Comment on above: Order Comment: DIFFI CULT DRAW- 10/14/2024 FASTING:YES FASTING: YES Performed By: #### 1 0231 #### [facility] [address], [address] [place] [address] Booster Assembler: Daniele Carlson MD ALP [Catalytic activity/Vol] 74 U/L Normal 35-144 [facility] Comment on above: Order Comment: DIFFI CULT DRAW- 10/14/2024 FASTING:YES FASTING: YES Performed By: #### 1 0231 #### [facility] [address], [address] [place] [address] Booster Assembler: Daniele Carlson MD ALT [Catalytic activity/Vol] 24 U/L Normal 9-46 [facility] Comment on above: Order Comment: DIFFI CULT DRAW- 10/14/2024 FASTING:YES FASTING: YES Result Comment: Your request to have a duplicate copy faxed has been acknowledged. Queued to: [id number] Performed By: #### 1 0231 #### [facility] of [address], [address] [place] [address] Booster Assembler: Daniele Carlson MD AST [Catalytic activity/Vol] 21 U/L Normal 10-35 [facility] Comment on above: Order Comment: DIFFI CULT DRAW- 10/14/2024 FASTING:YES FASTING: YES Performed By: #### 1 0231 #### [facility] [address], [address] [place] [address] Booster Assembler: Daniele Carlson MD Bilirubin [Mass/Vol] 0.9 mg/dL Normal 0.2-1.2 [facility] Comment on above: Order Comment: DIFFI CULT DRAW- 10/14/2024 FASTING:YES FASTING: YES Performed By: #### 1 0231 #### [facility] [address], [address] [place] [address] Booster Assembler: Daniele Carlson MD BUN/CREATININE RATIO SEE NOTE: Normal 6-22 [facility] Comment on above: Order Comment: DIFFI CULT DRAW- 10/14/2024 FASTING:YES FASTING: YES Result Comment: Not Reported: BUN and Creatinine are within reference range. Performed By: #### 1 0231 #### [facility] [place] [address] Booster Assembler: Daniele Carlson MD Calcium [Mass/Vol] 8.6 mg/dL Normal 8.6-10.3 [facility] Comment on above: Order Comment: DIFFI CULT DRAW- 10/14/2024 FASTING:YES FASTING: YES Performed By: #### 1 0231 #### [facility] [place] [address] Booster Assembler: Daniele Carlson MD Chloride [Moles/Vol] 104 mmol/L Normal 98-110 [facility] Comment on above: Order Comment: DIFFI CULT DRAW- 10/14/2024 FASTING:YES FASTING: YES Performed By: #### 1 0231 #### [facility] [place] [address] Booster Assembler: Daniele Carlson MD CO2 [Moles/Vol] 28 mmol/L Normal 20-32 [facility] Comment on above: Order Comment: DIFFI CULT DRAW- 10/14/2024 FASTING:YES FASTING: YES Performed By: #### 1 0231 #### [facility] [address], [address] [place] [address] Booster Assembler: Daniele Carlson MD Creatinine [Mass/Vol] 1.08 mg/dL Normal 0.70-1.[address] [facility] Comment on above: Order Comment: DIFFI CULT DRAW- 10/14/2024 FASTING:YES FASTING: YES Performed By: #### 1 0231 #### [facility] [address], [address] [place] [address] Booster Assembler: Daniele Carlson MD GFR/1.73 sq M.predicted among non-blacks MDRD (S/P/Bld) [Vol rate/Area] 69 mL/min/{1.73_m2} Normal > OR = 60 [facility] Comment on above: Order Comment: DIFFI CULT DRAW- 10/14/2024 FASTING:YES FASTING: YES Performed By: #### 1 0231 #### [facility] [address], [address] [place] [address] Booster Assembler: Daniele Calrson MD Globulin (S) [Mass/Vol] 2.1 g/dL Normal 1.9-3.7 [facility] Comment on above: Order Comment: DIFFI CULT DRAW- 10/14/2024 FASTING:YES FASTING: YES Performed By: #### 1 0231 #### [facility] [address], [address] [place] [address] Booster Assembler: Daniele Carlson MD Glucose [Mass/Vol] 111 mg/dL High 65-99 [facility] Comment on above: Order Comment: DIFFI CULT DRAW- 10/14/2024 FASTING:YES FASTING: YES Result Comment: Fasting reference interval For someone without known diabetes, a glucose value between 100 and 125 mg/dL is consistent with prediabetes and should be confirmed with a follow-up test. Performed By: #### 1 0231 #### [facility] [address], [address] [place] [address] Booster Assembler: Daniele Carlson MD Potassium [Moles/Vol] 3.6 mmol/L Normal 3.5-5.3 [facility] Comment on above: Order Comment: DIFFI CULT DRAW- 10/14/2024 FASTING:YES FASTING: YES Performed By: #### 1 0231 #### [facility] [address] [address] Booster Assembler: Daniele Carlson MD Protein [Mass/Vol] 6.0 g/dL Low 6.1-8.1 [facility] Comment on above: Order Comment: DIFFI CULT DRAW- 10/14/2024 FASTING:YES FASTING: YES Performed By: #### 1 0231 #### [facility] [address], [address] [place] [address] Booster Assembler: Daniele Carlson MD Sodium [Moles/Vol] 143 mmol/L Normal 135-146 [facility] Comment on above: Order Comment: DIFFI CULT DRAW- 10/14/2024 FASTING:YES FASTING: YES Performed By: #### 1 0231 #### [facility] [address], [address] [place] [address] Booster Assembler: Daniele Carlson MD Urea nitrogen [Mass/Vol] 18 mg/dL Normal 7-25 [facility] Comment on above: Order Comment: DIFFI CULT DRAW- 10/14/2024 FASTING:YES FASTING: YES Performed By: #### 1 0231 #### [facility] [address], [address] [place] [address] Booster Assembler: Daniele Carlson MD Laboratory - Hematology and Cell countson 09-17-2024 HbA1c (Bld) [Mass fraction] 6.2 % [facility] No Panel Informationon 09-17 Interpretation and review of laboratory results Abnormal [facility] Basic Metabolic Panelon 08-22 Anion gap [Moles/Vol] 8.9 mmol/L Normal 6.0-15.0 [facility] Comment on above: Performed By: #### B MP, CBC ####[facility] [address] [place] [address] [place] Calcium [Mass/Vol] 8.9 mg/dL Normal 8.6-10.3 [facility] Comment on above: Performed By: #### B MP, CBC ####[facility] [address] [place] [address] [place] Chloride [Moles/Vol] 106 mmol/L Normal 98-107 [facility] Comment on above: Performed By: #### B MP, CBC ####[place] [address] [place] [address] [facility] CO2 [Moles/Vol] 29.7 mmol/L Normal 21.0-31.0 [facility] Comment on above: Performed By: #### B MP, CBC ####[address] [address] [facility] Creatinine [Mass/Vol] 0.97 mg/dL Normal 0.70-1.30 [facility] Comment on above: Performed By: #### B MP, CBC ####[address] [address] [place] Creatinine Clr Calc Pharmacy 83.23 Normal [facility] Comment on above: Result Comment: PERF ORMED BY:[address] [place], [place] [phone] MEDICAL DIRECTORRHONDA MCLEAN M.D. Performed By: #### B MP, CBC ####[address] [address] [place] GFR/1.73 sq M.predicted MDRD (S/P/Bld) [Vol rate/Area] mL/min/{1.73_m2} Normal [facility] Comment on above: Performed By: #### B MP, CBC ####[address] [address] [facility] Glucose [Mass/Vol] 108 mg/dL High 70-100 [facility] Comment on above: Result Comment: [place] Glucose Reference Range is dependent on time and content of last meal. Glucose of more than 200 mg/dL in a nonstressed, ambulatory subject supports the diagnosis of Diabetes Mellitus. ADA recommended reference range Performed By: #### B MP, CBC ####[address] [address] [facility] Potassium [Moles/Vol] 3.6 mmol/L Normal 3.5-5.1 [facility] Comment on above: Performed By: #### B MP, CBC ####[address] [address] [facility] Sodium [Moles/Vol] 141 mmol/L Normal 136-145 [facility] Comment on above: Performed By: #### B MP, CBC ####[address] Urea nitrogen [Mass/Vol] 20 mg/dL Normal 7-25 [facility] Comment on above: Performed By: #### B MP, CBC ####[address] Basophils Auto (Bld) [#/Vol] Ordered By: Denzel Zamora on 09-13-2024 Basophils (Bld) [#/Vol] Automated basophil count 0.0-0.2 [facility] Basophils/100 WBC Auto (Bld) Ordered By: Denzel Zamora on 09-13-2024 Basophils/100 WBC (Bld) Automated basophil % . [facility] Calcium [Mass/volume] in Ser um or PlasmaOrdered By: Denzel Zamora on 09-13-2024 Calcium [Mass/Vol] Calcium [Mass/volume ] in Serum or Plasma 8.6-10.3 [facility] Carbon dioxide, total [Moles /volume] in Serum or PlasmaOrdered By: Denzel Zamora on 09-13-2024 CO2 [Moles/Vol] Carbon dioxide, tota l [Moles/volume] in Serum or Plasma 21.0-31.0 [facility] Chloride [Moles/volume] in S [place] or PlasmaOrdered By: Denzel Zamora on 09-13-2024 Chloride [Moles/Vol] Chloride [Moles/vol ume] in Serum or Plasma 98-107 [facility] Complete Blood Count Auto Di ffon 09-13-2024 Basophils (Bld) [#/Vol] 0.0 10*3/uL Normal 0.0-0.2 [facility] Comment on above: Result Comment: PERF ORMED BY:[address] [place], [place] [phone] MEDICAL DIRECTORRHONDA MCLEAN M.D. Performed By: #### B MP, CBC ####[place] [id number] [facility] Basophils/100 WBC (Bld) 0.4 % Normal . [facility] Comment on above: Performed By: #### B MP, CBC ####[address] Eosinophils (Bld) [#/Vol] 0.0 10*3/uL Normal 0.0-0.45 [facility] Comment on above: Performed By: #### B MP, CBC ####[address] Eosinophils/100 WBC (Bld) 0.5 % Normal . [facility] Comment on above: Performed By: #### B MP, CBC ####[address] Erythrocyte distribution width (RBC) [Ratio] 17.1 % High 12.0-14.8 [facility] Comment on above: Performed By: #### B MP, CBC ####[address] Hematocrit (Bld) [Volume fraction] 38.2 % Low 38.8-50.0 [facility] Comment on above: Performed By: #### B MP, CBC ####[address] Hemoglobin (Bld) [Mass/Vol] 12.8 g/dL Low 13.0-17.0 [facility] Comment on above: Performed By: #### B MP, CBC ####[place] [id number] [facility] Lymphocytes (Bld) [#/Vol] 1.9 10*3/uL Normal 1.00-4.8 [facility] Comment on above: Performed By: #### B MP, CBC ####[place] [id number] [facility] Lymphocytes/100 WBC (Bld) 23.2 % Normal . [facility] Comment on above: Performed By: #### B MP, CBC ####[address] MCH (RBC) [Entitic mass] 30.6 pg Normal 27.5-35.2 [facility] Comment on above: Performed By: #### B MP, CBC ####[address] MCV (RBC) [Entitic vol] 91.5 fL Normal 83.5-101 [facility] Comment on above: Performed By: #### B MP, CBC ####[address] Mean Corpuscular HGB Conc 33.4 g/dL Normal 32.5-35.6 [facility] Comment on above: Performed By: #### B MP, CBC ####[address] Monocytes (Bld) [#/Vol] 0.8 10*3/uL Normal 0.0-0.8 [facility] Comment on above: Performed By: #### B MP, CBC ####[address] Monocytes/100 WBC (Bld) 10.5 % Normal . [facility] Comment on above: Performed By: #### B MP, CBC ####[address] Neutrophils (Bld) [#/Vol] 5.2 10*3/uL Normal 1.8-7.7 [facility] Comment on above: Performed By: #### B MP, CBC ####[address] Neutrophils/100 WBC (Bld) 65.4 % Normal . [facility] Comment on above: Performed By: #### B MP, CBC ####[address] NRBC% 0.0 /100{WBC} Normal 0-0.5 [facility] Comment on above: Performed By: #### B MP, CBC ####[address] [place] [address] [facility] Platelet mean volume (Bld) [Entitic vol] 8.5 fL Normal 6.6-10.1 [facility] Comment on above: Performed By: #### B MP, CBC ####[place] [id number] [facility] Platelets (Bld) [#/Vol] 217 10*3/uL Normal 150-450 [facility] Comment on above: Performed By: #### B MP, CBC ####[address] RBC (Bld) [#/Vol] 4.18 10*6/uL Normal 3.90-5.60 [facility] Comment on above: Performed By: #### B MP, CBC ####[place] [id number] [facility] WBC (Bld) [#/Vol] 8.0 10*3/uL Normal 4.1-10.5 [facility] Comment on above: Performed By: #### B MP, CBC ####[address] Creatinine [Mass/volume] in Serum or PlasmaOrdered By: Denzel Zamora on 09-13-2024 Creatinine [Mass/Vol] Creatinine [Mass/v olume] in Serum or Plasma 0.70-1.30 [facility] Eosinophils Auto (Bld) [#/Vo l]Ordered By: Denzel Zamora on 09-13-2024 Eosinophils (Bld) [#/Vol] Automated eosinophil count 0.0-0.45 [facility] Eosinophils/100 WBC Auto (Bl d)Ordered By: Denzel Zamora on 09-13-2024 Eosinophils/100 WBC (Bld) Automated eosinophil % . [facility] Erythrocyte distribution wid th Auto (RBC) [Ratio]Ordered By: Denzel Zamora on 09-13-2024 Erythrocyte distribution width (RBC) [Ratio] Erythrocyte distribution width [Ratio] by Automated count High 12.0-14.8 [facility] Glucose [Mass/volume] in Ser um or PlasmaOrdered By: Denzel Zamora on 09-13-2024 Glucose [Mass/Vol] Glucose [Mass/volume ] in Serum or Plasma High 70-100 [facility] Hematocrit Auto (Bld) [Volum e fraction]Ordered By: Denzel Zamora on 09-13-2024 Hematocrit (Bld) [Volume fraction] Hematocrit [Volume Fraction] of Blood by Automated count Low 38.8-50.0 [facility] Hemoglobin [Mass/volume] in BloodOrdered By: Denzel Zamora on 09-13-2024 Hemoglobin (Bld) [Mass/Vol] Hemoglobin [Mass/volume] in Blood Low 13.0-17.0 [facility] Leukocytes [#/volume] correc blessing for nucleated erythrocytes in Blood by Automated counOrdered By: Denzel Zamora on 09-13-2024 WBC corrected for nucl RBC Auto (Bld) [#/Vol] Leukocytes [#/volume] corrected for nucleated erythrocytes in Blood by Automated coun 4.1-10.5 [facility] Lymphocytes Auto (Bld) [#/Vo l]Ordered By: Denzel Zamora on 09-13-2024 Lymphocytes (Bld) [#/Vol] Lymphocytes [#/volume] in Blood by Automated count 1.00-4.8 [facility] Lymphocytes/100 WBC Auto (Bl d)Ordered By: Denzel Zamora on 09-13-2024 Lymphocytes/100 WBC (Bld) Lymphocytes/100 leukocytes in Blood by Automated count . [facility] MCH Auto (RBC) [Entitic mass ]Ordered By: Denzel Zamora on 09-13-2024 MCH (RBC) [Entitic mass] MCH [Entitic mass] by Automated count 27.5-35.2 [facility] MCHC Auto (RBC) [Mass/Vol]Or dered By: Denzel Zamora on 09-13-2024 MCHC (RBC) [Mass/Vol] MCHC [Mass/volume] by Automated count 32.5-35.6 [facility] MCV Auto (RBC) [Entitic vol] Ordered By: Denzel Zamora on 09-13-2024 MCV (RBC) [Entitic vol] MCV [Entitic volume] by Automated count 83.5-101 [facility] Monocytes Auto (Bld) [#/Vol] Ordered By: Denzel Azmora on 09-13-2024 Monocytes (Bld) [#/Vol] Automated blood monocyte count 0.0-0.8 [facility] Monocytes/100 WBC Auto (Bld) Ordered By: Denzel Zamora on 09-13-2024 Monocytes/100 WBC (Bld) Automated monocyte % . [facility] Neutrophils Auto (Bld) [#/Vo l]Ordered By: Denzel Zamora on 09-13-2024 Neutrophils (Bld) [#/Vol] Neutrophils [#/volume] in Blood by Automated count 1.8-7.7 [facility] Neutrophils/100 WBC Auto (Bl d)Ordered By: Denzel Zamora on 09-13-2024 Neutrophils/100 WBC (Bld) Automated neutrophil % . [facility] No Panel InformationOrdered By: Denzel Zamora on 09-13-2024 > 60.0 mL/Min [facility] 83.23 [facility] Nucleated erythrocytes [Pres ence] in Blood by Automated countOrdered By: Denzel Zamora on 09-13-2024 Nucleated RBC Auto Ql (Bld) Nucleated erythrocytes [Presence] in Blood by Automated count 0-0.5 [facility] Platelet mean volume Auto (B ld) [Entitic vol]Ordered By: Denzel Zamora on 09-13-2024 Platelet mean volume (Bld) [Entitic vol] Platelet mean volume [Entitic volume] in Blood by Automated count 6.6-10.1 [facility] Platelets Auto (Bld) [#/Vol] Ordered By: Denzel Zamora on 09-13-2024 Platelets (Bld) [#/Vol] Platelets [#/volume] in Blood by Automated count 150-450 [facility] Potassium [Moles/volume] in Serum or PlasmaOrdered By: Denzel Zamora on 09-13-2024 Potassium [Moles/Vol] Potassium [Moles/v olume] in Serum or Plasma 3.5-5.1 [facility] RBC Auto (Bld) [#/Vol]Ordere d By: Denzel Zamora on 09-13-2024 RBC (Bld) [#/Vol] Erythrocytes [#/volu me] in Blood by Automated count 3.90-5.60 [facility] Serum or plasma anion gap de terminationOrdered By: Denzel Zamora on 09-13-2024 Anion gap [Moles/Vol] Serum or plasma an ion gap determination 6.0-15.0 [facility] Sodium [Moles/volume] in Ser um or PlasmaOrdered By: Denzel Zamora on 09-13-2024 Sodium [Moles/Vol] Sodium [Moles/volume ] in Serum or Plasma 136-145 [facility] Urea nitrogen [Mass/volume] in Serum or PlasmaOrdered By: Denzel Zamora on 09-13-2024 Urea nitrogen [Mass/Vol] Urea nitrogen [Mass/volume] in Serum or Plasma 7-25 [facility] WBC Auto (Bld) [#/Vol]Ordere d By: Denzel Zamora on 09-13-2024 WBC (Bld) [#/Vol] Leukocytes [#/volume ] in Blood by Automated count 4.1-10.5 [facility] Basic Metabolic Panelon 08-22 Anion gap [Moles/Vol] 10.9 mmol/L Normal 6.0-15.0 [facility] Comment on above: Performed By: #### C BC, BMP ####[facility] Calcium [Mass/Vol] 8.9 mg/dL Normal 8.6-10.3 [facility] Comment on above: Performed By: #### C BC, BMP ####[place] [address] [place] [id number] [facility] Chloride [Moles/Vol] 107 mmol/L Normal 98-107 [facility] Comment on above: Performed By: #### C BC, BMP ####[facility] [place] [id number] [facility] CO2 [Moles/Vol] 27.2 mmol/L Normal 21.0-31.0 [facility] Comment on above: Performed By: #### C BC, BMP ####[facility] [place] [id number] [facility] Creatinine [Mass/Vol] 1.10 mg/dL Normal 0.70-1.30 [facility] Comment on above: Performed By: #### C BC, BMP ####[place] [id number] [facility] Creatinine Clr Calc Pharmacy 73.39 Normal [facility] Comment on above: Result Comment: PERF ORMED BY:[address] [place], [place] [phone] MEDICAL DIRECTORRHONDA MCLEAN M.D. Performed By: #### C VERÓNICA, BMP ####[place] [id number] [facility] GFR/1.73 sq M.predicted MDRD (S/P/Bld) [Vol rate/Area] mL/min/{1.73_m2} Normal [facility] Comment on above: Performed By: #### C VERÓNICA, BMP ####[address] Glucose [Mass/Vol] 131 mg/dL High 70-100 [facility] Comment on above: Result Comment: [place] Glucose Reference Range is dependent on time and content of last meal. Glucose of more than 200 mg/dL in a nonstressed, ambulatory subject supports the diagnosis of Diabetes Mellitus. ADA recommended reference range Performed By: #### C BC, BMP ####[address] Potassium [Moles/Vol] 4.1 mmol/L Normal 3.5-5.1 [facility] Comment on above: Result Comment: Hemo lysis is present at a level that could interfere with the result. Contact lab if redraw is required Performed By: #### C BC, BMP ####[place] [id number] [facility] Sodium [Moles/Vol] 141 mmol/L Normal 136-145 [facility] Comment on above: Performed By: #### C BC, BMP ####[place] [id number] [facility] Urea nitrogen [Mass/Vol] 22 mg/dL Normal 7-25 [facility] Comment on above: Performed By: #### C VERÓNICA, BMP ####[address] Complete Blood Count Auto Di ffon 09-12-2024 Basophils (Bld) [#/Vol] 0.1 10*3/uL Normal 0.0-0.2 [facility] Comment on above: Result Comment: PERF ORMED BY:[address] [place], [place] [phone] MEDICAL DIRECTORRHONDA MCLEAN M.D. Performed By: #### C VERÓNICA, BMP ####[address] Basophils/100 WBC (Bld) 0.5 % Normal . [facility] Comment on above: Performed By: #### C VERÓNICA, BMP ####[address] Eosinophils (Bld) [#/Vol] 0.0 10*3/uL Normal 0.0-0.45 [facility] Comment on above: Performed By: #### C VERÓNICA, BMP ####[address] Eosinophils/100 WBC (Bld) 0.1 % Normal . [facility] Comment on above: Performed By: #### C VERÓNICA, BMP ####[address] Erythrocyte distribution width (RBC) [Ratio] 16.8 % High 12.0-14.8 [facility] Comment on above: Performed By: #### C VERÓNICA, BMP ####[address] Hematocrit (Bld) [Volume fraction] 39.6 % Normal 38.8-50.0 [facility] Comment on above: Performed By: #### C VERÓNICA, BMP ####[address] Hemoglobin (Bld) [Mass/Vol] 13.2 g/dL Normal 13.0-17.0 [facility] Comment on above: Performed By: #### C VERÓNICA, BMP ####[address] Lymphocytes (Bld) [#/Vol] 0.7 10*3/uL Low 1.00-4.8 [facility] Comment on above: Performed By: #### C VERÓNICA, BMP ####[address] Lymphocytes/100 WBC (Bld) 6.7 % Normal . [facility] Comment on above: Performed By: #### C VERÓNICA, BMP ####[address] MCH (RBC) [Entitic mass] 30.5 pg Normal 27.5-35.2 [facility] Comment on above: Performed By: #### C VERÓNICA, BMP ####[address] MCV (RBC) [Entitic vol] 91.4 fL Normal 83.5-101 [facility] Comment on above: Performed By: #### C VERÓNICA, BMP ####[address] Mean Corpuscular HGB Conc 33.4 g/dL Normal 32.5-35.6 [facility] Comment on above: Performed By: #### C VERÓNICA, BMP ####[address] Monocytes (Bld) [#/Vol] 1.0 10*3/uL High 0.0-0.8 [facility] Comment on above: Performed By: #### C VERÓNICA, BMP ####[address] Monocytes/100 WBC (Bld) 9.6 % Normal . [facility] Comment on above: Performed By: #### C VERÓNICA, BMP ####[address] Neutrophils (Bld) [#/Vol] 8.9 10*3/uL High 1.8-7.7 [facility] Comment on above: Performed By: #### Daniella SANCHES, BMP ####[address] Neutrophils/100 WBC (Bld) 83.1 % Normal . [facility] Comment on above: Performed By: #### C VERÓNICA, BMP ####[address] NRBC% 0.1 /100{WBC} Normal 0-0.5 [facility] Comment on above: Performed By: #### C VERÓNICA, BMP ####[address] Platelet mean volume (Bld) [Entitic vol] 8.3 fL Normal 6.6-10.1 [facility] Comment on above: Performed By: #### C VERÓNICA, BMP ####[address] Platelets (Bld) [#/Vol] 208 10*3/uL Normal 150-450 [facility] Comment on above: Performed By: #### C VERÓNICA, BMP ####[address] RBC (Bld) [#/Vol] 4.33 10*6/uL Normal 3.90-5.60 [facility] Comment on above: Performed By: #### Daniella SANCHES, BMP ####[address] WBC (Bld) [#/Vol] 10.7 10*3/uL High 4.1-10.5 [facility] Comment on above: Performed By: #### Daniella SANCHES, BMP ####[address] Acanthocytes [Presence] in B lood by Light microscopyOrdered By: Joseline Barrera on 09-11-2024 Acanthocytes LM Ql (Bld) Acanthocytes [Presence] in Blood by Light microscopy [facility] Anisocytosis LM Ql (Bld)Orde red By: Joseline Barrera on 09-11-2024 Anisocytosis Ql (Bld) Anisocytosis [Pres ence] in Blood by Light microscopy [facility] B-Type Natriuretic Peptideon 09-11-2024 Natriuretic peptide B (Bld) [Mass/Vol] 72.0 pg/mL Normal 5-100 [facility] Comment on above: Result Comment: PERF ORMED BY:[address] [place], [place] [phone] MEDICAL DIRECTORRHONDA MCLEAN M.D. Performed By: #### B MP, BNP, DIFF CBC, MG, HS TROP ####[place] [id number] [facility] Basic Metabolic Panelon 08-22 Anion gap [Moles/Vol] 10.9 mmol/L Normal 6.0-15.0 Th e [facility] Comment on above: Order Comment: NOTIF IED SUDHAKAR KATHE 1ST Specimen hemolyzed, redraw requested Performed By: #### B MP, BNP, DIFF CBC, MG, HS TROP ####[place] [id number] [facility] Calcium [Mass/Vol] 9.2 mg/dL Normal 8.6-10.3 [facility] Comment on above: Order Comment: NOTIF IED SUDHAKAR KATHE 1ST Specimen hemolyzed, redraw requested Performed By: #### B MP, BNP, DIFF CBC, MG, HS TROP ####[place] [id number] [facility] Chloride [Moles/Vol] 104 mmol/L Normal 98-107 [facility] Comment on above: Order Comment: NOTIF IED SUDHAKAR KATHE 1ST Specimen hemolyzed, redraw requested Performed By: #### B MP, BNP, DIFF CBC, MG, HS TROP ####[place] [id number] [facility] CO2 [Moles/Vol] 30.9 mmol/L Normal 21.0-31.0 [facility] Comment on above: Order Comment: NOTIF IED SUDHAKAR KATHE 1ST Specimen hemolyzed, redraw requested Performed By: #### B MP, BNP, DIFF CBC, MG, HS TROP ####[place] [address] [place] [address] [facility] Creatinine [Mass/Vol] 1.49 mg/dL High 0.70-1.30 [facility] Comment on above: Order Comment: NOTIF IED SUDHAKAR ARCHULETA 1ST Specimen hemolyzed, redraw requested Performed By: #### B MP, BNP, DIFF CBC, MG, HS TROP ####[place] [id number] [facility] Creatinine Clr Calc Pharmacy 54.21 Normal [facility] Comment on above: Order Comment: NOTIF IED SUDHAKAR ARCHULETA 1ST Specimen hemolyzed, redraw requested Result Comment: PERF ORMED BY:[address] [place], [place] [phone] MEDICAL DIRECTORRHONDA MCLEAN M.D. Performed By: #### B MP, BNP, DIFF CBC, MG, HS TROP ####[address] [address] [facility] Estimated GFR 47.149 mL/Min Normal [facility] Comment on above: Order Comment: NOTIF SOD SUDHKAAR ARCHULETA 1ST Specimen hemolyzed, redraw requested Performed By: #### B MP, BNP, DIFF CBC, MG, HS TROP ####[place] [id number] [facility] Glucose [Mass/Vol] 133 mg/dL High 70-100 [facility] Comment on above: Order Comment: NOTIF IED SUDHAKAR ARCHULETA 1ST Specimen hemolyzed, redraw requested Result Comment: [place] Glucose Reference Range is dependent on time and content of last meal. Glucose of more than 200 mg/dL in a nonstressed, ambulatory subject supports the diagnosis of Diabetes Mellitus. ADA recommended reference range Performed By: #### B MP, BNP, DIFF CBC, MG, HS TROP ####[address] [address] [facility] Potassium [Moles/Vol] 3.8 mmol/L Normal 3.5-5.1 [facility] Comment on above: Order Comment: NOTIF IED SUDHAKAR ARCHULETA 1ST Specimen hemolyzed, redraw requested Performed By: #### B MP, BNP, DIFF CBC, MG, HS TROP ####[place] [address] Sodium [Moles/Vol] 142 mmol/L Normal 136-145 [facility] Comment on above: Order Comment: NOTIF IED SUDHAKAR ARCHULETA 1ST Specimen hemolyzed, redraw requested Performed By: #### B MP, BNP, DIFF CBC, MG, HS TROP ####[address] Urea nitrogen [Mass/Vol] 29 mg/dL High 7-25 [facility] Comment on above: Order Comment: NOTIF IED SUDHAKAR ARCHULETA 1ST Specimen hemolyzed, redraw requested Performed By: #### B MP, BNP, DIFF CBC, MG, HS TROP ####[address] Basophils Auto (Bld) [#/Vol] Ordered By: Joseline Barrera on 09-11-2024 Basophils (Bld) [#/Vol] Automated basophil count [facility] Basophils/100 WBC Auto (Bld) Ordered By: Joseline Barrera on 09-11-2024 Basophils/100 WBC (Bld) Automated basophil % [facility] C reactive protein [Mass/vol ume] in Serum or PlasmaOrdered By: Jamel Packer on 09-11-2024 CRP [Mass/Vol] C reactive protein [Mass/volume] in Serum or Plasma High 0.0-0.5 [facility] C-Reactive Proteinon 025 C-Reactive Protein 0.6 mg/dL High 0.0-0.5 [facility] Comment on above: Result Comment: PERF ORMED BY:[address] [place], [place] [phone] MEDICAL DIRECTORRHONDA MCLEAN M.D. Performed By: #### E SR, CRP ####[place] [id number] [facility] COVID Cepheid NegativeOrdere d By: Joseline Barrera on 09-11-2024 SARS-CoV-2 (COVID-19) RNA JAYDE+probe Ql (Unsp spec) COVID Cepheid Negative [facility] COVID-19 / Flu A/B / RSV PCR on 09-11-2024 SARS-CoV-2 (COVID-19) RNA JAYDE+probe Ql (Unsp spec) Normal [facility] Comment on above: Performed By: #### C OVID19 FLU RSV, CEPHEID NEG ####[facility] [id number] [place] [address] [facility] Calcium [Mass/volume] in Ser um or PlasmaOrdered By: Joseline Barrera on 09-11-2024 Calcium [Mass/Vol] Calcium [Mass/volume ] in Serum or Plasma 8.6-10.3 [facility] Carbon dioxide, total [Moles /volume] in Serum or PlasmaOrdered By: Joseline Barrera on 09-11-2024 CO2 [Moles/Vol] Carbon dioxide, tota l [Moles/volume] in Serum or Plasma 21.0-31.0 [facility] Cepheid COVID PCR Negativeon 09-11-2024 SARS-CoV-2 (COVID-19) RNA JAYDE+probe Ql (Unsp spec) Negative Normal Negative [facility] Comment on above: Result Comment: This is a duplicate Cepheid Xpert Xpress CoV-2/Flu/RSV Plus RNA by RT-PCR result to be used for statistical tracking purpose only.PERFORMED BY:[address] [place], [place] [phone] MEDICAL DIRECTORRHONDA MCLEAN M.D. Performed By: #### C OVID19 FLU RSV, CEPHEID NEG ####[place] [address] [place] [address] [place] Chloride [Moles/volume] in S [place] or PlasmaOrdered By: Joseline Barrera on 09-11-2024 Chloride [Moles/Vol] Chloride [Moles/vol ume] in Serum or Plasma 98-107 [facility] Creatinine [Mass/volume] in Serum or PlasmaOrdered By: Joseline Barrera on 09-11-2024 Creatinine [Mass/Vol] Creatinine [Mass/v olume] in Serum or Plasma High 0.70-1.30 [facility] Diff and CBCon 09-11-2024 Acanthocytes Slight Normal [facility] Comment on above: Performed By: #### B MP, BNP, DIFF CBC, MG, HS TROP ####[address] Anisocytosis Ql (Bld) Slight Normal [facility] Comment on above: Performed By: #### B MP, BNP, DIFF CBC, MG, HS TROP ####[address] Erythrocyte distribution width (RBC) [Ratio] 17.1 % High 12.0-14.8 [facility] Comment on above: Performed By: #### B MP, BNP, DIFF CBC, MG, HS TROP ####[address] Hematocrit (Bld) [Volume fraction] 40.0 % Normal 38.8-50.0 [facility] Comment on above: Performed By: #### B MP, BNP, DIFF CBC, MG, HS TROP ####[address] Hemoglobin (Bld) [Mass/Vol] 13.4 g/dL Normal 13.0-17.0 [facility] Comment on above: Performed By: #### B MP, BNP, DIFF CBC, MG, HS TROP ####[address] Lymphocytes/100 WBC (Bld) 24 % Normal 18-42 [facility] Comment on above: Performed By: #### B MP, BNP, DIFF CBC, MG, HS TROP ####[address] MCH (RBC) [Entitic mass] 30.8 pg Normal 27.5-35.2 [facility] Comment on above: Performed By: #### B MP, BNP, DIFF CBC, MG, HS TROP ####[address] MCV (RBC) [Entitic vol] 92.2 fL Normal 83.5-101 [facility] Comment on above: Performed By: #### B MP, BNP, DIFF CBC, MG, HS TROP ####[address] Mean Corpuscular HGB Conc 33.4 g/dL Normal 32.5-35.6 [facility] Comment on above: Performed By: #### B MP, BNP, DIFF CBC, MG, HS TROP ####[address] Metamyelocytes 1 % High 0-0 [facility] Comment on above: Performed By: #### B MP, BNP, DIFF CBC, MG, HS TROP ####[address] Monocytes/100 WBC (Bld) 17.57 % Normal 0.00-20.00 [facility] Comment on above: Performed By: #### B MP, BNP, DIFF CBC, MG, HS TROP ####[address] Monocytes/100 WBC (Bld) 14 % High 2-11 [facility] Comment on above: Performed By: #### B MP, BNP, DIFF CBC, MG, HS TROP ####[address] Platelet Estimate Normal Normal Normal [facility] Comment on above: Performed By: #### B MP, BNP, DIFF CBC, MG, HS TROP ####[place] [id number] [facility] Platelet mean volume (Bld) [Entitic vol] 9.2 fL Normal 6.6-10.1 [facility] Comment on above: Performed By: #### B MP, BNP, DIFF CBC, MG, HS TROP ####[place] [id number] [facility] Platelet Morphology Normal Normal Normal [facility] Comment on above: Result Comment: PERF ORMED BY:[address] [place], [place] [phone] MEDICAL DIRECTORRHONDA MCLEAN M.D. Performed By: #### B MP, BNP, DIFF CBC, MG, HS TROP ####[place] [address] Platelets (Bld) [#/Vol] 233 10*3/uL Normal 150-450 [facility] Comment on above: Performed By: #### B MP, BNP, DIFF CBC, MG, HS TROP ####[place] [address] RBC (Bld) [#/Vol] 4.34 10*6/uL Normal 3.90-5.60 [facility] Comment on above: Performed By: #### B MP, BNP, DIFF CBC, MG, HS TROP ####[address] Segmented neutrophils/100 WBC (Bld) 61 % Normal 50-70 [facility] Comment on above: Performed By: #### B MP, BNP, DIFF CBC, MG, HS TROP ####[address] WBC (Bld) [#/Vol] 7.8 10*3/uL Normal 4.1-10.5 [facility] Comment on above: Performed By: #### B MP, BNP, DIFF CBC, MG, HS TROP ####[address] ECG 12 lead ECGon 09-11-2024 ECG 12 lead ECG Normal [facility] Eosinophils Auto (Bld) [#/Vo l]Ordered By: Joseline Barrera on 09-11-2024 Eosinophils (Bld) [#/Vol] Automated eosinophil count [facility] Eosinophils/100 WBC Auto (Bl d)Ordered By: Joseline Barrera on 09-11-2024 Eosinophils/100 WBC (Bld) Automated eosinophil % [facility] Erythrocyte Sedimentation Ra kimberlee 09-11-2024 ESR (Bld) [Velocity] 16 mm/h Normal 0-19 [facility] Comment on above: Result Comment: PERF ORMED BY:[facility], [place] [phone] MEDICAL DIRECTORRHONDA MCLEAN M.D. Performed By: #### E SR, CRP ####[facility] [id number] [place] [address] [facility] Erythrocyte distribution wid th Auto (RBC) [Ratio]Ordered By: Joseline Barrera on 09-11-2024 Erythrocyte distribution width (RBC) [Ratio] Erythrocyte distribution width [Ratio] by Automated count High 12.0-14.8 [facility] Erythrocyte morphology findi ng [Identifier] in BloodOrdered By: Joseline Barrera on 09-11-2024 RBC morphology finding Nom (Bld) RBC morphology [facility] Erythrocyte sedimentation ra te by Photometric methodOrdered By: Jamel Packer on 09-11-2024 ESR Photometric method (Bld) [Velocity] Erythrocyte sedimentation rate by Photometric method 0-19 [facility] Glucose [Mass/volume] in Ser um or PlasmaOrdered By: Joseline Barrera on 09-11-2024 Glucose [Mass/Vol] Glucose [Mass/volume ] in Serum or Plasma High 70-100 [facility] Hematocrit Auto (Bld) [Volum e fraction]Ordered By: Joseline Barrera on 09-11-2024 Hematocrit (Bld) [Volume fraction] Hematocrit [Volume Fraction] of Blood by Automated count 38.8-50.0 [facility] Hemoglobin [Mass/volume] in BloodOrdered By: Joseline Barrera on 09-11-2024 Hemoglobin (Bld) [Mass/Vol] Hemoglobin [Mass/volume] in Blood 13.0-17.0 [facility] Leukocytes [#/volume] correc blessing for nucleated erythrocytes in Blood by Automated counOrdered By: Joseline Barrera on 09-11-2024 WBC corrected for nucl RBC Auto (Bld) [#/Vol] Leukocytes [#/volume] corrected for nucleated erythrocytes in Blood by Automated coun 4.1-10.5 [facility] Lymphocytes Auto (Bld) [#/Vo l]Ordered By: Joseline Barrera on 09-11-2024 Lymphocytes (Bld) [#/Vol] Lymphocytes [#/volume] in Blood by Automated count [facility] Lymphocytes/100 WBC Auto (Bl d)Ordered By: Joseline Barrera on 09-11-2024 Lymphocytes/100 WBC (Bld) Lymphocytes/100 leukocytes in Blood by Automated count [facility] Lymphocytes/100 WBC Manual c nt (Bld)Ordered By: Joseline Barrera on 09-11-2024 Lymphocytes/100 WBC (Bld) Lymphocytes/100 leukocytes in Blood by Manual count 18-42 [facility] MCH Auto (RBC) [Entitic mass ]Ordered By: Joseline Barrera on 09-11-2024 MCH (RBC) [Entitic mass] MCH [Entitic mass] by Automated count 27.5-35.2 [facility] MCHC Auto (RBC) [Mass/Vol]Or dered By: Joseline Barrera on 09-11-2024 MCHC (RBC) [Mass/Vol] MCHC [Mass/volume] by Automated count 32.5-35.6 [facility] MCV Auto (RBC) [Entitic vol] Ordered By: Joseline Barrera on 09-11-2024 MCV (RBC) [Entitic vol] MCV [Entitic volume] by Automated count 83.5-101 [facility] Magnesiumon 09-11-2024 Magnesium [Mass/Vol] 2.1 mg/dL Normal 1.9-2.7 [facility] Comment on above: Order Comment: NOTIF IED SUDHAKAR ARCHULETA 1ST Specimen hemolyzed, redraw requested Result Comment: PERF ORMED BY:[place] [address] [place], [place] [phone] MEDICAL DIRECTORRHONDA MCLEAN M.D. Performed By: #### B MP, BNP, DIFF CBC, MG, HS TROP ####[facility] [place] [id number] [facility] Magnesium [Mass/volume] in S [place] or PlasmaOrdered By: Joseline Barrera on 09-11-2024 Magnesium [Mass/Vol] Magnesium [Mass/vol ume] in Serum or Plasma 1.9-2.7 [facility] Metamyelocytes/100 WBC Manua l cnt (Bld)Ordered By: Joseline Barrera on 09-11-2024 Metamyelocytes/100 WBC (Bld) Metamyelocytes/100 leukocytes in Blood by Manual count High 0-0 [facility] Monocyte distribution width [Entitic volume] in Blood by AutomatedOrdered By: Joseline Barrera on 09-11-2024 Monocyte distribution width Auto (Bld) [Entitic vol] Monocyte distribution width [Entitic volume] in Blood by Automated 0.00-20.00 [facility] Monocytes Auto (Bld) [#/Vol] Ordered By: Joseline Barrera on 09-11-2024 Monocytes (Bld) [#/Vol] Automated blood monocyte count [facility] Monocytes/100 WBC Auto (Bld) Ordered By: Joseline Barrera on 09-11-2024 Monocytes/100 WBC (Bld) Automated monocyte % [facility] Monocytes/100 WBC Manual cnt (Bld)Ordered By: Joseline Barrera on 09-11-2024 Monocytes/100 WBC (Bld) Monocytes/100 leukocytes in Blood by Manual count High 2-11 [facility] Natriuretic peptide B [Mass/ Vol]Ordered By: Joseline Barrera on 09-11-2024 Natriuretic peptide B (Bld) [Mass/Vol] BNP ser/plas 5-100 [facility] Neutrophils Auto (Bld) [#/Vo l]Ordered By: Joseline Barrera on 09-11-2024 Neutrophils (Bld) [#/Vol] Neutrophils [#/volume] in Blood by Automated count [facility] Neutrophils/100 WBC Auto (Bl d)Ordered By: Joseline Barrera on 09-11-2024 Neutrophils/100 WBC (Bld) Automated neutrophil % [facility] No Panel InformationOrdered By: Joseline Barrera on 09-11-2024 47.149 mL/Min [facility] 54.21 [facility] Nucleated erythrocytes [Pres ence] in Blood by Automated countOrdered By: Joseline Barrera on 09-11-2024 Nucleated RBC Auto Ql (Bld) Nucleated erythrocytes [Presence] in Blood by Automated count [facility] Platelet adequacy [Presence] in Blood by Light microscopyOrdered By: Joseline Barrera on 09-11-2024 Platelets LM Ql (Bld) Platelet adequacy [Presence] in Blood by Light microscopy Normal [facility] Platelet mean volume Auto (B ld) [Entitic vol]Ordered By: Joseline Barrera on 09-11-2024 Platelet mean volume (Bld) [Entitic vol] Platelet mean volume [Entitic volume] in Blood by Automated count 6.6-10.1 [facility] Platelet morphology finding [Identifier] in BloodOrdered By: Joseline Barrera on 09-11-2024 Platelet morphology finding Nom (Bld) Platelet morphology finding [Identifier] in Blood Normal [facility] Platelets Auto (Bld) [#/Vol] Ordered By: Joseline Barrera on 09-11-2024 Platelets (Bld) [#/Vol] Platelets [#/volume] in Blood by Automated count 150-450 [facility] Potassium [Moles/volume] in Serum or PlasmaOrdered By: Joseline Barrera on 09-11-2024 Potassium [Moles/Vol] Potassium [Moles/v olume] in Serum or Plasma 3.5-5.1 [facility] RBC Auto (Bld) [#/Vol]Ordere d By: Joseline Barrera on 09-11-2024 RBC (Bld) [#/Vol] Erythrocytes [#/volu me] in Blood by Automated count 3.90-5.60 [facility] Segmented neutrophils/100 WB C Manual cnt (Bld)Ordered By: Joseline Barrera on 09-11-2024 Segmented neutrophils/100 WBC (Bld) Manual blood segmented neutrophils/100 leukocytes 50-70 [facility] Serum or plasma anion gap de terminationOrdered By: Joseline Barrera on 09-11-2024 Anion gap [Moles/Vol] Serum or plasma an ion gap determination 6.0-15.0 [facility] Sodium [Moles/volume] in Ser um or PlasmaOrdered By: Joseline Barrera on 09-11-2024 Sodium [Moles/Vol] Sodium [Moles/volume ] in Serum or Plasma 136-145 [facility] Troponin I High Sensitivityo n 09-11-2024 Troponin I High Sensitivity 9 Normal 0-20 [facility] Comment on above: Result Comment: The Troponin units of report have been changed to meet the Chest Pain Accreditation requirement, element EC5.M1l2. Troponin units are changed from pg/ml to ng/L. Also, the decimal is removed and results are in whole numbers.PERFORMED BY:[facility] [place], [place] [phone] MEDICAL DIRECTORRHONDA MCLEAN M.D. Performed By: #### B MP, BNP, DIFF CBC, MG, HS TROP ####[facility] [id number] [place] [address] [facility] Troponin I.cardiac [Mass/vol ume] in Serum or Plasma by Detection limit <= 0.01 ng/Ordered By: Joseline Barrera on 09-11-2024 Troponin I.cardiac DL <= 0.01 ng/mL [Mass/Vol] Troponin I.cardiac [Mass/volume] in Serum or Plasma by Detection limit <= 0.01 ng/ 0-20 [facility] Urea nitrogen [Mass/volume] in Serum or PlasmaOrdered By: Joseline Barrera on 09-11-2024 Urea nitrogen [Mass/Vol] Urea nitrogen [Mass/volume] in Serum or Plasma High 03-14 [facility] WBC Auto (Bld) [#/Vol]Ordere d By: Joseline Barrera on 09-11-2024 WBC (Bld) [#/Vol] Leukocytes [#/volume ] in Blood by Automated count 4.1-10.5 [facility] X-ray reportOrdered By: Narendra Mock on 09-11-2024 Study report [facility] XR chest 2V*on 09-11-2024 XR chest 2V* Normal [facility] Alanine aminotransferase [En zymatic activity/volume] in Serum or PlasmaOrdered By: Kaz Prescott on 07-31-2024 ALT [Catalytic activity/Vol] Alanine aminotransferase [Enzymatic activity/volume] in Serum or Plasma [facility] Albumin [Mass/volume] in Ser um or Plasma by Bromocresol green (BCG) dye binding methoOrdered By: Kaz Prescott on 07-31-2024 Albumin BCG dye [Mass/Vol] Albumin [Mass/volume] in Serum or Plasma by Bromocresol green (BCG) dye binding metho Low 3.5-5.7 [facility] Alkaline phosphatase [Enzyma tic activity/volume] in Serum or PlasmaOrdered By: Kaz Prescott on 07-31-2024 ALP [Catalytic activity/Vol] Alkaline phosphatase [Enzymatic activity/volume] in Serum or Plasma 34-104 [facility] Aspartate aminotransferase [ Enzymatic activity/volume] in Serum or PlasmaOrdered By: Kaz Prescott on 07-31-2024 AST [Catalytic activity/Vol] Aspartate aminotransferase [Enzymatic activity/volume] in Serum or Plasma 13-39 [facility] Basophils Auto (Bld) [#/Vol] Ordered By: Kaz Prescott on 07-31-2024 Basophils (Bld) [#/Vol] Automated basophil count 0.0-0.2 [facility] Basophils/100 WBC Auto (Bld) Ordered By: Kaz Prescott on 07-31-2024 Basophils/100 WBC (Bld) Automated basophil % . [facility] Bilirubin.total [Mass/volume ] in Serum or PlasmaOrdered By: Kaz Prescott on 07-31-2024 Bilirubin [Mass/Vol] Bilirubin.total [Mass/volume] in Serum or Plasma 0.3-1.0 [facility] Calcium [Mass/volume] in Ser um or PlasmaOrdered By: Kaz Prescott on 07-31-2024 Calcium [Mass/Vol] Calcium [Mass/volume ] in Serum or Plasma 8.6-10.3 [facility] Carbon dioxide, total [Moles /volume] in Serum or PlasmaOrdered By: Kaz Prescott on 07-31-2024 CO2 [Moles/Vol] Carbon dioxide, tota l [Moles/volume] in Serum or Plasma High 21.0-31.0 [facility] Chloride [Moles/volume] in S [place] or PlasmaOrdered By: Kaz Prescott on 07-31-2024 Chloride [Moles/Vol] Chloride [Moles/vol ume] in Serum or Plasma 98-107 [facility] Complete Blood Count Auto Di ffon 07-31-2024 Basophils (Bld) [#/Vol] 0.1 10*3/uL Normal 0.0-0.2 [facility] Comment on above: Result Comment: PERF ORMED BY:[place] [address] [place], [place] [phone] MEDICAL DIRECTORRHONDA MCLEAN M.D. Performed By: #### C BC MG, CMP ####[address] Basophils/100 WBC (Bld) 0.8 % Normal . [facility] Comment on above: Performed By: #### C BC MG, CMP ####[address] Eosinophils (Bld) [#/Vol] 0.4 10*3/uL Normal 0.0-0.45 [facility] Comment on above: Performed By: #### C BC MG, CMP ####[address] Eosinophils/100 WBC (Bld) 3.7 % Normal . [facility] Comment on above: Performed By: #### C BC MG, CMP ####[address] Erythrocyte distribution width (RBC) [Ratio] 15.0 % High 12.0-14.8 [facility] Comment on above: Performed By: #### C BC MG, CMP ####[address] Hematocrit (Bld) [Volume fraction] 38.6 % Low 38.8-50.0 [facility] Comment on above: Performed By: #### C BC MG, CMP ####[address] Hemoglobin (Bld) [Mass/Vol] 13.0 g/dL Normal 13.0-17.0 [facility] Comment on above: Performed By: #### C BC MG, CMP ####[address] Lymphocytes (Bld) [#/Vol] 2.1 10*3/uL Normal 1.00-4.8 [facility] Comment on above: Performed By: #### C BC MG, CMP ####[address] Lymphocytes/100 WBC (Bld) 21.4 % Normal . [facility] Comment on above: Performed By: #### C BC MG, CMP ####[address] MCH (RBC) [Entitic mass] 30.6 pg Normal 27.5-35.2 [facility] Comment on above: Performed By: #### C BC MG, CMP ####[address] MCV (RBC) [Entitic vol] 91.1 fL Normal 83.5-101 [facility] Comment on above: Performed By: #### C VERÓNICA MG, CMP ####[address] Mean Corpuscular HGB Conc 33.6 g/dL Normal 32.5-35.6 [facility] Comment on above: Performed By: #### C BC MG, CMP ####[address] Monocytes (Bld) [#/Vol] 1.1 10*3/uL High 0.0-0.8 [facility] Comment on above: Performed By: #### C BC MG, CMP ####[address] Monocytes/100 WBC (Bld) 10.8 % Normal . [facility] Comment on above: Performed By: #### C BC MG, CMP ####[address] Neutrophils (Bld) [#/Vol] 6.2 10*3/uL Normal 1.8-7.7 [facility] Comment on above: Performed By: #### C BC MG, CMP ####[address] Neutrophils/100 WBC (Bld) 63.3 % Normal . [facility] Comment on above: Performed By: #### C BC MG, CMP ####[address] NRBC% 0.3 /100{WBC} Normal 0-0.5 [facility] Comment on above: Performed By: #### C BC, MG, CMP ####[address] Platelet mean volume (Bld) [Entitic vol] 8.9 fL Normal 6.6-10.1 [facility] Comment on above: Performed By: #### C BC, MG, CMP ####[address] Platelets (Bld) [#/Vol] 227 10*3/uL Normal 150-450 [facility] Comment on above: Performed By: #### C BC, MG, CMP ####[address] RBC (Bld) [#/Vol] 4.24 10*6/uL Normal 3.90-5.60 [facility] Comment on above: Performed By: #### C BC, MG, CMP ####[address] WBC (Bld) [#/Vol] 9.8 10*3/uL Normal 4.1-10.5 [facility] Comment on above: Performed By: #### C BC, MG, CMP ####[address] Comprehensive Metabolic Pane rc 07-31-2024 Albumin [Mass/Vol] 3.1 g/dL Low 3.5-5.7 [facility] Comment on above: Performed By: #### C BC, MG, CMP ####[address] Albumin/Globulin [Mass ratio] 1.2 {ratio} Normal [facility] Comment on above: Performed By: #### C BC, MG, CMP ####[address] ALP [Catalytic activity/Vol] 49 U/L Normal 34-104 [facility] Comment on above: Performed By: #### C BC, MG, CMP ####[place] [id number] [facility] ALT [Catalytic activity/Vol] 18 U/L Normal 7-52 [facility] Comment on above: Performed By: #### C BC, MG, CMP ####[place] [id number] [facility] Anion gap [Moles/Vol] 10.4 mmol/L Normal 6.0-15.0 [facility] Comment on above: Performed By: #### C BC, MG, CMP ####[address] AST [Catalytic activity/Vol] 16 U/L Normal 13-39 [facility] Comment on above: Performed By: #### C BC, MG, CMP ####[address] Bilirubin [Mass/Vol] 0.8 mg/dL Normal 0.3-1.0 [facility] Comment on above: Performed By: #### C BC, MG, CMP ####[address] Calcium [Mass/Vol] 8.9 mg/dL Normal 8.6-10.3 [facility] Comment on above: Performed By: #### C BC, MG, CMP ####[place] [id number] [facility] Chloride [Moles/Vol] 102 mmol/L Normal 98-107 [facility] Comment on above: Performed By: #### C BC, MG, CMP ####[place] [id number] [facility] CO2 [Moles/Vol] 33.0 mmol/L High 21.0-31.0 [facility] Comment on above: Performed By: #### C BC, MG, CMP ####[place] [id number] [facility] Creatinine [Mass/Vol] 1.05 mg/dL Normal 0.70-1.30 [facility] Comment on above: Performed By: #### C BC, MG, CMP ####[address] Creatinine Clr Calc Pharmacy 75.84 Normal [facility] Comment on above: Performed By: #### C BC, MG, CMP ####[place] [id number] [facility] [facility] GFR/1.73 sq M.predicted MDRD (S/P/Bld) [Vol rate/Area] mL/min/{1.73_m2} Normal [facility] Comment on above: Performed By: #### C BC, MG, CMP ####[address] Globulin (S) [Mass/Vol] 2.5 g/dL Normal [facility] Comment on above: Performed By: #### C BC, MG, CMP ####[address] Glucose [Mass/Vol] 100 mg/dL Normal 70-100 [facility] Comment on above: Result Comment: [facility] Glucose Reference Range is dependent on time and content of last meal. Glucose of more than 200 mg/dL in a nonstressed, ambulatory subject supports the diagnosis of Diabetes Mellitus. ADA recommended reference range Performed By: #### C BC, MG, CMP ####[address] Potassium [Moles/Vol] 3.4 mmol/L Low 3.5-5.1 [facility] Comment on above: Performed By: #### C BC, MG, CMP ####[place] [id number] [facility] Protein [Mass/Vol] 5.6 g/dL Low 6.4-8.9 [facility] Comment on above: Performed By: #### C BC, MG, CMP ####[address] Sodium [Moles/Vol] 142 mmol/L Normal 136-145 [facility] Comment on above: Performed By: #### C BC, MG, CMP ####[facility] [id number] Urea nitrogen [Mass/Vol] 18 mg/dL Normal 7-25 [facility] Comment on above: Performed By: #### C BC, MG, CMP ####[facility] [id number] Creatinine [Mass/volume] in Serum or PlasmaOrdered By: Kaz Prescott on 07-31-2024 Creatinine [Mass/Vol] Creatinine [Mass/v olume] in Serum or Plasma 0.70-1.30 [facility] Eosinophils Auto (Bld) [#/Vo l]Ordered By: Kaz Prescott on 07-31-2024 Eosinophils (Bld) [#/Vol] Automated eosinophil count 0.0-0.45 [facility] Eosinophils/100 WBC Auto (Bl d)Ordered By: Kaz Prescott on 07-31-2024 Eosinophils/100 WBC (Bld) Automated eosinophil % . [facility] Erythrocyte distribution wid th Auto (RBC) [Ratio]Ordered By: Kaz Prescott on 07-31-2024 Erythrocyte distribution width (RBC) [Ratio] Erythrocyte distribution width [Ratio] by Automated count High 12.0-14.8 [facility] Globulin Calc (S) [Mass/Vol] Ordered By: Kaz Prescott on 07-31-2024 Globulin (S) [Mass/Vol] Serum globulin measurement by calculation (mass/volume) [facility] Glucose [Mass/volume] in Ser um or PlasmaOrdered By: Kaz Prescott on 07-31-2024 Glucose [Mass/Vol] Glucose [Mass/volume ] in Serum or Plasma 70-100 [facility] Hematocrit Auto (Bld) [Volum e fraction]Ordered By: Kaz Prescott 07-31-2024 Hematocrit (Bld) [Volume fraction] Hematocrit [Volume Fraction] of Blood by Automated count Low 38.8-50.0 [facility] Hemoglobin [Mass/volume] in BloodOrdered By: Kaz Prescott 07-31-2024 Hemoglobin (Bld) [Mass/Vol] Hemoglobin [Mass/volume] in Blood 13.0-17.0 [facility] Leukocytes [#/volume] correc blessing for nucleated erythrocytes in Blood by Automated counOrdered By: Kaz Prescott on 07-31-2024 WBC corrected for nucl RBC Auto (Bld) [#/Vol] Leukocytes [#/volume] corrected for nucleated erythrocytes in Blood by Automated coun 4.1-10.5 [facility] Lymphocytes Auto (Bld) [#/Vo l]Ordered By: Kaz Prescott on 07-31-2024 Lymphocytes (Bld) [#/Vol] Lymphocytes [#/volume] in Blood by Automated count 1.00-4.8 [facility] Lymphocytes/100 WBC Auto (Bl d)Ordered By: Kaz Prescott on 07-31-2024 Lymphocytes/100 WBC (Bld) Lymphocytes/100 leukocytes in Blood by Automated count . [facility] MCH Auto (RBC) [Entitic mass ]Ordered By: Kaz Prescott on 07-31-2024 MCH (RBC) [Entitic mass] MCH [Entitic mass] by Automated count 27.5-35.2 [facility] MCHC Auto (RBC) [Mass/Vol]Or dered By: Kaz Prescott on 07-31-2024 MCHC (RBC) [Mass/Vol] MCHC [Mass/volume] by Automated count 32.5-35.6 [facility] MCV Auto (RBC) [Entitic vol] Ordered By: Kaz Prescott on 07-31-2024 MCV (RBC) [Entitic vol] MCV [Entitic volume] by Automated count 83.5-101 [facility] Magnesiumon 07-31-2024 Magnesium [Mass/Vol] 1.9 mg/dL Normal 1.9-2.7 [facility] Comment on above: Result Comment: PERF ORMED BY:[facility] [place], [place] [phone] MEDICAL DIRECTORRHONDA MCLEAN M.D. Performed By: #### C BC, MG, CMP ####[facility] [place] [address] [facility] Magnesium [Mass/volume] in S [place] or PlasmaOrdered By: Kaz Prescott on 07-31-2024 Magnesium [Mass/Vol] Magnesium [Mass/vol ume] in Serum or Plasma 1.9-2.7 [facility] Monocytes Auto (Bld) [#/Vol] Ordered By: Kaz Prescott on 07-31-2024 Monocytes (Bld) [#/Vol] Automated blood monocyte count High 0.0-0.8 [facility] Monocytes/100 WBC Auto (Bld) Ordered By: Kaz Prescott on 07-31-2024 Monocytes/100 WBC (Bld) Automated monocyte % . [facility] Neutrophils Auto (Bld) [#/Vo l]Ordered By: Kaz Prescott on 07-31-2024 Neutrophils (Bld) [#/Vol] Neutrophils [#/volume] in Blood by Automated count 1.8-7.7 [facility] Neutrophils/100 WBC Auto (Bl d)Ordered By: Kaz Prescott on 07-31-2024 Neutrophils/100 WBC (Bld) Automated neutrophil % . [facility] No Panel InformationOrdered By: Kaz Prescott on 07-31-2024 > 60.0 mL/Min [facility] 75.84 [facility] Nucleated erythrocytes [Pres ence] in Blood by Automated countOrdered By: Kaz Prescott on 07-31-2024 Nucleated RBC Auto Ql (Bld) Nucleated erythrocytes [Presence] in Blood by Automated count 0-0.5 [facility] Platelet mean volume Auto (B ld) [Entitic vol]Ordered By: Kaz Prescott on 07-31-2024 Platelet mean volume (Bld) [Entitic vol] Platelet mean volume [Entitic volume] in Blood by Automated count 6.6-10.1 [facility] Platelets Auto (Bld) [#/Vol] Ordered By: Kaz Prescott on 07-31-2024 Platelets (Bld) [#/Vol] Platelets [#/volume] in Blood by Automated count 150-450 [facility] Potassium [Moles/volume] in Serum or PlasmaOrdered By: Kaz Prescott on 07-31-2024 Potassium [Moles/Vol] Potassium [Moles/v olume] in Serum or Plasma Low 3.5-5.1 [facility] Protein [Mass/volume] in Ser um or PlasmaOrdered By: Kaz Prescott on 07-31-2024 Protein [Mass/Vol] Protein [Mass/volume ] in Serum or Plasma Low 6.4-8.9 [facility] RBC Auto (Bld) [#/Vol]Ordere d By: Kaz Prescott on 07-31-2024 RBC (Bld) [#/Vol] Erythrocytes [#/volu me] in Blood by Automated count 3.90-5.60 [facility] Serum or plasma albumin/glob ulin mass ratioOrdered By: Kaz Prescott on 07-31-2024 Albumin/Globulin [Mass ratio] Serum or plasma albumin/globulin mass ratio [facility] Serum or plasma anion gap de terminationOrdered By: Kaz Prescott on 07-31-2024 Anion gap [Moles/Vol] Serum or plasma an ion gap determination 6.0-15.0 [facility] Sodium [Moles/volume] in Ser um or PlasmaOrdered By: Kaz Prescott on 07-31-2024 Sodium [Moles/Vol] Sodium [Moles/volume ] in Serum or Plasma 136-145 [facility] US venous duplex LE BIon US venous duplex LE BI Normal [facility] Urea nitrogen [Mass/volume] in Serum or PlasmaOrdered By: Kaz Prescott on 07-31-2024 Urea nitrogen [Mass/Vol] Urea nitrogen [Mass/volume] in Serum or Plasma 7-25 [facility] WBC Auto (Bld) [#/Vol]Ordere d By: Kaz Prescott on 07-31-2024 WBC (Bld) [#/Vol] Leukocytes [#/volume ] in Blood by Automated count 4.1-10.5 [facility] Complete Blood Count Auto Di ffon 07-30-2024 Basophils (Bld) [#/Vol] 0.1 10*3/uL Normal 0.0-0.2 [facility] Comment on above: Result Comment: PERF ORMED BY:[place] [address] [place], [place] [phone] MEDICAL DIRECTORRHONDA MCLEAN M.D. Performed By: #### C BC, CMP ####[address] Basophils/100 WBC (Bld) 0.6 % Normal . [facility] Comment on above: Performed By: #### C BC, CMP ####[address] Eosinophils (Bld) [#/Vol] 0.1 10*3/uL Normal 0.0-0.45 [facility] Comment on above: Performed By: #### C BC, CMP ####[address] Eosinophils/100 WBC (Bld) 1.6 % Normal . [facility] Comment on above: Performed By: #### C BC, CMP ####[address] Erythrocyte distribution width (RBC) [Ratio] 15.4 % High 12.0-14.8 [facility] Comment on above: Performed By: #### C BC, CMP ####[address] Hematocrit (Bld) [Volume fraction] 38.6 % Low 38.8-50.0 [facility] Comment on above: Performed By: #### C BC, CMP ####[address] Hemoglobin (Bld) [Mass/Vol] 13.0 g/dL Normal 13.0-17.0 [facility] Comment on above: Performed By: #### C BC, CMP ####[address] Lymphocytes (Bld) [#/Vol] 2.3 10*3/uL Normal 1.00-4.8 [facility] Comment on above: Performed By: #### C BC, CMP ####[address] Lymphocytes/100 WBC (Bld) 25.0 % Normal . [facility] Comment on above: Performed By: #### C BC, CMP ####[address] MCH (RBC) [Entitic mass] 30.5 pg Normal 27.5-35.2 [facility] Comment on above: Performed By: #### C BC, CMP ####[address] MCV (RBC) [Entitic vol] 90.6 fL Normal 83.5-101 [facility] Comment on above: Performed By: #### C BC, CMP ####[address] Mean Corpuscular HGB Conc 33.7 g/dL Normal 32.5-35.6 [facility] Comment on above: Performed By: #### C BC, CMP ####[address] Monocytes (Bld) [#/Vol] 0.9 10*3/uL High 0.0-0.8 [facility] Comment on above: Performed By: #### C BC, CMP ####[address] Monocytes/100 WBC (Bld) 9.5 % Normal . [facility] Comment on above: Performed By: #### C BC, CMP ####[address] Neutrophils (Bld) [#/Vol] 5.8 10*3/uL Normal 1.8-7.7 [facility] Comment on above: Performed By: #### C BC, CMP ####[address] Neutrophils/100 WBC (Bld) 63.3 % Normal . [facility] Comment on above: Performed By: #### C BC, CMP ####[address] NRBC% 0.1 /100{WBC} Normal 0-0.5 [facility] Comment on above: Performed By: #### C BC, CMP ####[address] Platelet mean volume (Bld) [Entitic vol] 8.1 fL Normal 6.6-10.1 [facility] Comment on above: Performed By: #### C BC, CMP ####[address] Platelets (Bld) [#/Vol] 220 10*3/uL Normal 150-450 [facility] Comment on above: Performed By: #### C BC, CMP ####[address] RBC (Bld) [#/Vol] 4.26 10*6/uL Normal 3.90-5.60 [facility] Comment on above: Performed By: #### C BC, CMP ####[address] WBC (Bld) [#/Vol] 9.2 10*3/uL Normal 4.1-10.5 [facility] Comment on above: Performed By: #### C VERÓNICA, CMP ####[address] Comprehensive Metabolic Pane rc 07-30-2024 Albumin [Mass/Vol] 3.2 g/dL Low 3.5-5.7 [facility] Comment on above: Performed By: #### C BC, CMP ####[address] Albumin/Globulin [Mass ratio] 1.3 {ratio} Normal [facility] Comment on above: Performed By: #### C BC, CMP ####[address] ALP [Catalytic activity/Vol] 50 U/L Normal 34-104 [facility] Comment on above: Performed By: #### C BC, CMP ####[address] ALT [Catalytic activity/Vol] 19 U/L Normal 7-52 [facility] Comment on above: Performed By: #### C BC, CMP ####[place] [id number] [facility] Anion gap [Moles/Vol] 9.8 mmol/L Normal 6.0-15.0 [facility] Comment on above: Performed By: #### C BC, CMP ####[address] AST [Catalytic activity/Vol] 18 U/L Normal 13-39 [facility] Comment on above: Performed By: #### C BC, CMP ####[address] Bilirubin [Mass/Vol] 0.8 mg/dL Normal 0.3-1.0 [facility] Comment on above: Performed By: #### C BC, CMP ####[address] Calcium [Mass/Vol] 9.1 mg/dL Normal 8.6-10.3 [facility] Comment on above: Performed By: #### C BC, CMP ####[address] Chloride [Moles/Vol] 103 mmol/L Normal 98-107 [facility] Comment on above: Performed By: #### C BC, CMP ####[place] [id number] [facility] CO2 [Moles/Vol] 33.6 mmol/L High 21.0-31.0 [facility] Comment on above: Performed By: #### C BC, CMP ####[place] [id number] [facility] Creatinine [Mass/Vol] 1.00 mg/dL Normal 0.70-1.30 [facility] Comment on above: Performed By: #### C BC, CMP ####[place] [id number] [facility] Creatinine Clr Calc Pharmacy 80.23 Normal [facility] Comment on above: Result Comment: PERF ORMED BY:[address] [place], [place] [phone] MEDICAL DIRECTORRHONDA MCLEAN M.D. Performed By: #### C BC, CMP ####[address] [address] [facility] GFR/1.73 sq M.predicted MDRD (S/P/Bld) [Vol rate/Area] mL/min/{1.73_m2} Normal [facility] Comment on above: Performed By: #### C BC, CMP ####[address] [address] [facility] Globulin (S) [Mass/Vol] 2.5 g/dL Normal [facility] Comment on above: Performed By: #### C BC, CMP ####[address] [address] [facility] Glucose [Mass/Vol] 99 mg/dL Normal 70-100 [facility] Comment on above: Result Comment: [facility] Glucose Reference Range is dependent on time and content of last meal. Glucose of more than 200 mg/dL in a nonstressed, ambulatory subject supports the diagnosis of Diabetes Mellitus. ADA recommended reference range Performed By: #### C BC, CMP ####[place] [id number] [facility] Potassium [Moles/Vol] 3.4 mmol/L Low 3.5-5.1 [facility] Comment on above: Performed By: #### C BC, CMP ####[address] [address] [facility] Protein [Mass/Vol] 5.7 g/dL Low 6.4-8.9 [facility] Comment on above: Performed By: #### C BC, CMP ####[place] [id number] [facility] Sodium [Moles/Vol] 143 mmol/L Normal 136-145 [facility] Comment on above: Performed By: #### C BC, CMP ####[place] [id number] [facility] Urea nitrogen [Mass/Vol] 20 mg/dL Normal 7-25 [facility] Comment on above: Performed By: #### C BC, CMP ####[address] lumbar spine wo conon CT lumbar spine wo con Normal Th e [facility] Complete Blood Count Auto Di ffon 07-29-2024 Basophils (Bld) [#/Vol] 0.0 10*3/uL Normal 0.0-0.2 [facility] Comment on above: Result Comment: PERF ORMED BY:[address] [place], [place] [phone] MEDICAL DIRECTORRHONDA MCLEAN M.D. Performed By: #### P HOS, CMP, CBC, MG ####[address] Basophils/100 WBC (Bld) 0.4 % Normal . [facility] Comment on above: Performed By: #### P HOS, CMP, CBC, MG ####[address] Eosinophils (Bld) [#/Vol] 0.1 10*3/uL Normal 0.0-0.45 [facility] Comment on above: Performed By: #### P HOS, CMP, CBC, MG ####[address] Eosinophils/100 WBC (Bld) 0.9 % Normal . [facility] Comment on above: Performed By: #### P HOS, CMP, CBC, MG ####[address] Erythrocyte distribution width (RBC) [Ratio] 15.2 % High 12.0-14.8 [facility] Comment on above: Performed By: #### P HOS, CMP, CBC, MG ####[address] Hematocrit (Bld) [Volume fraction] 39.0 % Normal 38.8-50.0 [facility] Comment on above: Performed By: #### P HOS, CMP, CBC, MG ####[address] Hemoglobin (Bld) [Mass/Vol] 13.2 g/dL Normal 13.0-17.0 [facility] Comment on above: Performed By: #### P HOS, CMP, CBC, MG ####[address] Lymphocytes (Bld) [#/Vol] 1.9 10*3/uL Normal 1.00-4.8 [facility] Comment on above: Performed By: #### P HOS, CMP, CBC, MG ####[address] Lymphocytes/100 WBC (Bld) 23.4 % Normal . [facility] Comment on above: Performed By: #### P HOS, CMP, CBC, MG ####[address] MCH (RBC) [Entitic mass] 30.5 pg Normal 27.5-35.2 [facility] Comment on above: Performed By: #### P HOS, CMP, CBC, MG ####[address] MCV (RBC) [Entitic vol] 90.5 fL Normal 83.5-101 [facility] Comment on above: Performed By: #### P HOS, CMP, CBC, MG ####[address] Mean Corpuscular HGB Conc 33.7 g/dL Normal 32.5-35.6 [facility] Comment on above: Performed By: #### P HOS, CMP, CBC, MG ####[address] Monocytes (Bld) [#/Vol] 1.1 10*3/uL High 0.0-0.8 [facility] Comment on above: Performed By: #### P HOS, CMP, CBC, MG ####[address] Monocytes/100 WBC (Bld) 13.3 % Normal . [facility] Comment on above: Performed By: #### P HOS, CMP, CBC, MG ####[address] Neutrophils (Bld) [#/Vol] 5.2 10*3/uL Normal 1.8-7.7 [facility] Comment on above: Performed By: #### P HOS, CMP, CBC, MG ####[address] Neutrophils/100 WBC (Bld) 62.0 % Normal . [facility] Comment on above: Performed By: #### P HOS, CMP, CBC, MG ####[address] NRBC% 0.1 /100{WBC} Normal 0-0.5 [facility] Comment on above: Performed By: #### P HOS, CMP, CBC, MG ####[address] Platelet mean volume (Bld) [Entitic vol] 8.4 fL Normal 6.6-10.1 [facility] Comment on above: Performed By: #### P HOS, CMP, CBC, MG ####[address] Platelets (Bld) [#/Vol] 217 10*3/uL Normal 150-450 [facility] Comment on above: Performed By: #### P HOS, CMP, CBC, MG ####[place] [address] [place] RBC (Bld) [#/Vol] 4.31 10*6/uL Normal 3.90-5.60 [facility] Comment on above: Performed By: #### P HOS, CMP, CBC, MG ####[address] WBC (Bld) [#/Vol] 8.3 10*3/uL Normal 4.1-10.5 [facility] Comment on above: Performed By: #### P HOS, CMP, CBC, MG ####[address] Comprehensive Metabolic Pane rc 07-29-2024 Albumin [Mass/Vol] 3.2 g/dL Low 3.5-5.7 [facility] Comment on above: Performed By: #### P HOS, CMP, CBC, MG ####[address] Albumin/Globulin [Mass ratio] 1.2 {ratio} Normal [facility] Comment on above: Performed By: #### P HOS, CMP, CBC, MG ####[address] ALP [Catalytic activity/Vol] 49 U/L Normal 34-104 [facility] Comment on above: Performed By: #### P HOS, CMP, CBC, MG ####[address] ALT [Catalytic activity/Vol] 18 U/L Normal 7-52 [facility] Comment on above: Performed By: #### P HOS, CMP, CBC, MG ####[address] Anion gap [Moles/Vol] 11.3 mmol/L Normal 6.0-15.0 [facility] Comment on above: Performed By: #### P HOS, CMP, CBC, MG ####[address] AST [Catalytic activity/Vol] 19 U/L Normal 13-39 [facility] Comment on above: Performed By: #### P HOS, CMP, CBC, MG ####[address] Bilirubin [Mass/Vol] 0.8 mg/dL Normal 0.3-1.0 [facility] Comment on above: Performed By: #### P HOS, CMP, CBC, MG ####[place] [address] Calcium [Mass/Vol] 9.1 mg/dL Normal 8.6-10.3 [facility] Comment on above: Performed By: #### P HOS, CMP, CBC, MG ####[address] Chloride [Moles/Vol] 102 mmol/L Normal 98-107 [facility] Comment on above: Performed By: #### P HOS, CMP, CBC, MG ####[address] CO2 [Moles/Vol] 34.0 mmol/L High 21.0-31.0 [facility] Comment on above: Performed By: #### P HOS, CMP, CBC, MG ####[address] Creatinine [Mass/Vol] 1.09 mg/dL Normal 0.70-1.30 [facility] Comment on above: Performed By: #### P HOS, CMP, CBC, MG ####[address] Creatinine Clr Calc Pharmacy 73.15 Normal [facility] Comment on above: Performed By: #### P HOS, CMP, CBC, MG ####[address] GFR/1.73 sq M.predicted MDRD (S/P/Bld) [Vol rate/Area] mL/min/{1.73_m2} Normal [facility] Comment on above: Performed By: #### P HOS, CMP, CBC, MG ####[address] Globulin (S) [Mass/Vol] 2.6 g/dL Normal [facility] Comment on above: Performed By: #### P HOS, CMP, CBC, MG ####[address] Glucose [Mass/Vol] 98 mg/dL Normal 70-100 [facility] Comment on above: Result Comment: [place] Glucose Reference Range is dependent on time and content of last meal. Glucose of more than 200 mg/dL in a nonstressed, ambulatory subject supports the diagnosis of Diabetes Mellitus. ADA recommended reference range Performed By: #### P HOS, CMP, CBC, MG ####[place] [address] [place] [address] [facility] Potassium [Moles/Vol] 3.3 mmol/L Low 3.5-5.1 [facility] Comment on above: Performed By: #### P HOS, CMP, CBC, MG ####[place] [address] [place] [id number] [facility] Protein [Mass/Vol] 5.8 g/dL Low 6.4-8.9 [facility] Comment on above: Performed By: #### P HOS, CMP, CBC, MG ####[place] [id number] [facility] Sodium [Moles/Vol] 144 mmol/L Normal 136-145 [facility] Comment on above: Performed By: #### P HOS, CMP, CBC, MG ####[place] [id number] [facility] Urea nitrogen [Mass/Vol] 23 mg/dL Normal 7-25 [facility] Comment on above: Performed By: #### P HOS, CMP, CBC, MG ####[address] [address] [facility] Magnesiumon 07-29-2024 Magnesium [Mass/Vol] 1.8 mg/dL Low 1.9-2.7 [facility] [facility] Comment on above: Result Comment: PERF ORMED BY:[address] [place], [place] [phone] MEDICAL DIRECTORRHONDA MCLEAN M.D. Performed By: #### P HOS, CMP, CBC, MG ####[address] [address] [facility] Phosphate [Mass/volume] in [place] or PlasmaOrdered By: Kamaljit Melo on 07-29-2024 Phosphate [Mass/Vol] Phosphate [Mass/vol ume] in Serum or Plasma 2.5-4.5 [facility] Phosphoruson 07-29-2024 Phosphate [Mass/Vol] 3.4 mg/dL Normal 2.5-4.5 [facility] Comment on above: Performed By: #### P HOS, CMP, CBC, MG ####[facility] [place] [address] [facility] Appearance of UrineOrdered B y: Juli Thomas on 07-28-2024 Appearance (U) Urine appearance Clear [facility] B-Type Natriuretic Peptideon 07-28-2024 Natriuretic peptide B (Bld) [Mass/Vol] 142.0 pg/mL High 5-100 [facility] Comment on above: Result Comment: PERF ORMED BY:[address] [address] [address] [place], [place] [phone] MEDICAL NELLIE MCLEAN M.D. Performed By: #### P HOS, MG, BNP, HS TROP, CMP, PTT, PT, CBC ####[facility] [address] [place] [address] [facility] Bacteria [Presence] in Urine by AutomatedOrdered By: Juli Thomas on 07-28-2024 Bacteria Auto Ql (U) Bacteria [Presence] in Urine by Automated None Seen [facility] Bilirubin Test strip Ql (U)O rdered By: Juli Thomas on 07-28-2024 Bilirubin Ql (U) Bilirubin.total [Pre sence] in Urine by Test strip Negative [facility] CT cervical spine wo conon 1 09-28-2023 CT cervical spine wo con Normal [facility] Color Auto (U)Ordered By: Goyo Thomas on 07-28-2024 Color (U) Color of Urine by Auto Yellow [facility] Complete Blood Count Auto Di ffon 07-28-2024 Basophils (Bld) [#/Vol] 0.1 10*3/uL Normal 0.0-0.2 [facility] Comment on above: Result Comment: PERF ORMED BY:[address] [address] [address] [place], [place] [phone] MEDICAL DIRECTORRHONDA MCLEAN M.D. Performed By: #### P HOS, MG, BNP, HS TROP, CMP, PTT, PT, CBC ####[address] Basophils/100 WBC (Bld) 0.9 % Normal . [facility] Comment on above: Performed By: #### P HOS, MG, BNP, HS TROP, CMP, PTT, PT, CBC ####[address] Eosinophils (Bld) [#/Vol] 0.0 10*3/uL Normal 0.0-0.45 [facility] Comment on above: Performed By: #### P HOS, MG, BNP, HS TROP, CMP, PTT, PT, CBC ####[address] Eosinophils/100 WBC (Bld) 0.2 % Normal . [facility] Comment on above: Performed By: #### P HOS, MG, BNP, HS TROP, CMP, PTT, PT, CBC ####[address] Erythrocyte distribution width (RBC) [Ratio] 15.1 % High 12.0-14.8 [facility] Comment on above: Performed By: #### P HOS, MG, BNP, HS TROP, CMP, PTT, PT, CBC ####[address] Hematocrit (Bld) [Volume fraction] 38.9 % Normal 38.8-50.0 [facility] Comment on above: Performed By: #### P HOS, MG, BNP, HS TROP, CMP, PTT, PT, CBC ####[address] Hemoglobin (Bld) [Mass/Vol] 13.1 g/dL Normal 13.0-17.0 [facility] Comment on above: Performed By: #### P HOS, MG, BNP, HS TROP, CMP, PTT, PT, CBC ####[address] Lymphocytes (Bld) [#/Vol] 0.7 10*3/uL Low 1.00-4.8 [facility] Comment on above: Performed By: #### P HOS, MG, BNP, HS TROP, CMP, PTT, PT, CBC ####[address] Lymphocytes/100 WBC (Bld) 5.7 % Normal . [facility] Comment on above: Performed By: #### P HOS, MG, BNP, HS TROP, CMP, PTT, PT, CBC ####[address] MCH (RBC) [Entitic mass] 30.4 pg Normal 27.5-35.2 [facility] Comment on above: Performed By: #### P HOS, MG, BNP, HS TROP, CMP, PTT, PT, CBC ####[address] MCV (RBC) [Entitic vol] 90.3 fL Normal 83.5-101 [facility] Comment on above: Performed By: #### P HOS, MG, BNP, HS TROP, CMP, PTT, PT, CBC ####[address] Mean Corpuscular HGB Conc 33.7 g/dL Normal 32.5-35.6 [facility] Comment on above: Performed By: #### P HOS, MG, BNP, HS TROP, CMP, PTT, PT, CBC ####[address] Monocytes (Bld) [#/Vol] 1.1 10*3/uL High 0.0-0.8 [facility] Comment on above: Performed By: #### P HOS, MG, BNP, HS TROP, CMP, PTT, PT, CBC ####[address] Monocytes/100 WBC (Bld) 20.19 % High 0.00-20.00 [facility] Comment on above: Result Comment: For adults in ED, MDW > 20.0 may be associated with a higher risk of sepsis during the first 12 hrs of hospital admission Performed By: #### P HOS, MG, BNP, HS TROP, CMP, PTT, PT, CBC ####[address] Monocytes/100 WBC (Bld) 8.7 % Normal . [facility] Comment on above: Performed By: #### P HOS, MG, BNP, HS TROP, CMP, PTT, PT, CBC ####[address] Neutrophils (Bld) [#/Vol] 10.6 10*3/uL High 1.8-7.7 [facility] Comment on above: Performed By: #### P HOS, MG, BNP, HS TROP, CMP, PTT, PT, CBC ####[address] Neutrophils/100 WBC (Bld) 84.5 % Normal . [facility] Comment on above: Performed By: #### P HOS, MG, BNP, HS TROP, CMP, PTT, PT, CBC ####[address] NRBC% 0.2 /100{WBC} Normal 0-0.5 [facility] Comment on above: Performed By: #### P HOS, MG, BNP, HS TROP, CMP, PTT, PT, CBC ####[address] Platelet mean volume (Bld) [Entitic vol] 8.6 fL Normal 6.6-10.1 [facility] Comment on above: Performed By: #### P HOS, MG, BNP, HS TROP, CMP, PTT, PT, CBC ####[address] Platelets (Bld) [#/Vol] 234 10*3/uL Normal 150-450 [facility] Comment on above: Performed By: #### P HOS, MG, BNP, HS TROP, CMP, PTT, PT, CBC ####[address] RBC (Bld) [#/Vol] 4.31 10*6/uL Normal 3.90-5.60 [facility] Comment on above: Performed By: #### P HOS, MG, BNP, HS TROP, CMP, PTT, PT, CBC ####[address] WBC (Bld) [#/Vol] 12.5 10*3/uL High 4.1-10.5 [facility] Comment on above: Performed By: #### P HOS, MG, BNP, HS TROP, CMP, PTT, PT, CBC ####[address] Comprehensive Metabolic Pane rc 07-28-2024 Albumin [Mass/Vol] 3.4 g/dL Low 3.5-5.7 [facility] Comment on above: Performed By: #### P HOS, MG, BNP, HS TROP, CMP, PTT, PT, CBC ####[address] Albumin/Globulin [Mass ratio] 1.2 {ratio} Normal [facility] Comment on above: Performed By: #### P HOS, MG, BNP, HS TROP, CMP, PTT, PT, CBC ####[address] ALP [Catalytic activity/Vol] 57 U/L Normal 34-104 [facility] Comment on above: Performed By: #### P HOS, MG, BNP, HS TROP, CMP, PTT, PT, CBC ####[address] ALT [Catalytic activity/Vol] 22 U/L Normal 7-52 [facility] Comment on above: Performed By: #### P HOS, MG, BNP, HS TROP, CMP, PTT, PT, CBC ####[address] Anion gap [Moles/Vol] 13.5 mmol/L Normal 6.0-15.0 [facility] Comment on above: Performed By: #### P HOS, MG, BNP, HS TROP, CMP, PTT, PT, CBC ####[address] AST [Catalytic activity/Vol] 20 U/L Normal 13-39 [facility] Comment on above: Performed By: #### P HOS, MG, BNP, HS TROP, CMP, PTT, PT, CBC ####[address] Bilirubin [Mass/Vol] 0.7 mg/dL Normal 0.3-1.0 [facility] Comment on above: Performed By: #### P HOS, MG, BNP, HS TROP, CMP, PTT, PT, CBC ####[address] Calcium [Mass/Vol] 9.1 mg/dL Normal 8.6-10.3 [facility] Comment on above: Performed By: #### P HOS, MG, BNP, HS TROP, CMP, PTT, PT, CBC ####[address] Chloride [Moles/Vol] 100 mmol/L Normal 98-107 [facility] Comment on above: Performed By: #### P HOS, MG, BNP, HS TROP, CMP, PTT, PT, CBC ####[address] CO2 [Moles/Vol] 29.9 mmol/L Normal 21.0-31.0 [facility] Comment on above: Performed By: #### P HOS, MG, BNP, HS TROP, CMP, PTT, PT, CBC ####[address] Creatinine [Mass/Vol] 1.20 mg/dL Normal 0.70-1.30 [facility] Comment on above: Performed By: #### P HOS, MG, BNP, HS TROP, CMP, PTT, PT, CBC ####[address] Creatinine Clr Calc Pharmacy 67.69 Normal [facility] Comment on above: Performed By: #### P HOS, MG, BNP, HS TROP, CMP, PTT, PT, CBC ####[address] GFR/1.73 sq M.predicted MDRD (S/P/Bld) [Vol rate/Area] mL/min/{1.73_m2} Normal [facility] Comment on above: Performed By: #### P HOS, MG, BNP, HS TROP, CMP, PTT, PT, CBC ####[address] Globulin (S) [Mass/Vol] 2.8 g/dL Normal [facility] Comment on above: Performed By: #### P HOS, MG, BNP, HS TROP, CMP, PTT, PT, CBC ####[address] Glucose [Mass/Vol] 151 mg/dL High 70-100 [facility] Comment on above: Result Comment: [facility] Glucose Reference Range is dependent on time and content of last meal. Glucose of more than 200 mg/dL in a nonstressed, ambulatory subject supports the diagnosis of Diabetes Mellitus. ADA recommended reference range Performed By: #### P HOS, MG, BNP, HS TROP, CMP, PTT, PT, CBC ####[address] Potassium [Moles/Vol] 3.4 mmol/L Low 3.5-5.1 [facility] Comment on above: Performed By: #### P HOS, MG, BNP, HS TROP, CMP, PTT, PT, CBC ####[address] Protein [Mass/Vol] 6.2 g/dL Low 6.4-8.9 [facility] Comment on above: Performed By: #### P HOS, MG, BNP, HS TROP, CMP, PTT, PT, CBC ####[address] Sodium [Moles/Vol] 140 mmol/L Normal 136-145 [facility] Comment on above: Performed By: #### P HOS, MG, BNP, HS TROP, CMP, PTT, PT, CBC ####[place] [id number] [facility] Urea nitrogen [Mass/Vol] 28 mg/dL High 7-25 [facility] Comment on above: Performed By: #### P HOS, MG, BNP, HS TROP, CMP, PTT, PT, CBC ####[address] [address] [facility] Dipstick and Microscopicon 1 09-28-2023 Appearance (U) Clear Normal Clear [facility] Comment on above: Order Comment: Name Collection Type:: Clean-Voided Midstream Performed By: #### A DDONUAPLUS ####[address] [address] [facility] Bacteria,Urine None Seen Normal None Seen [facility] Comment on above: Order Comment: Name Collection Type:: Clean-Voided Midstream Performed By: #### A DDONUAPLUS ####[address] [address] [facility] Bilirubin,Urine Negative Normal Negative [facility] Comment on above: Order Comment: Name Collection Type:: Clean-Voided Midstream Performed By: #### A DDONUAPLUS ####[address] [address] [facility] Color (U) Colorless Normal Yellow [facility] Comment on above: Order Comment: Name Collection Type:: Clean-Voided Midstream Performed By: #### A DDONUAPLUS ####[address] [address] [facility] Glucose Ql (U) Normal Normal Normal [facility] Comment on above: Order Comment: Name Collection Type:: Clean-Voided Midstream Performed By: #### A DDONUAPLUS ####[address] [address] [facility] Hyaline Casts,Urine None Normal 0-8 [facility] Comment on above: Order Comment: Name Collection Type:: Clean-Voided Midstream Result Comment: PERF ORMED BY:[address] [address] [address] [place], [place] [phone] MEDICAL NELLIE MCLEAN M.D. Performed By: #### A DDONUAPLUS ####[address] [address] [facility] Ketones Ql (U) Negative Normal Negative [facility] Comment on above: Order Comment: Name Collection Type:: Clean-Voided Midstream Performed By: #### A DDONUAPLUS ####[address] [address] [facility] Leukocyte esterase Test strip Ql (U) Negative Normal Negative [facility] Comment on above: Order Comment: Name Collection Type:: Clean-Voided Midstream Performed By: #### A DDONUAPLUS ####[address] [address] [place] Nitrite,Urine Negative Normal Negative [facility] Comment on above: Order Comment: Name Collection Type:: Clean-Voided Midstream Performed By: #### A DDONUAPLUS ####[address] [address] [place] Occult Blood,Urine Trace High Negative [facility] Comment on above: Order Comment: Name Collection Type:: Clean-Voided Midstream Result Comment: PERF ORMED BY:[address] [place] [address] [address] [place], [place] [phone] JIL MCLEAN M.D. Performed By: #### A DDONUAPLUS ####[address] [address] [place] pH (U) 6.5 [pH] Normal 5.0-9.0 [facility] Comment on above: Order Comment: Name Collection Type:: Clean-Voided Midstream Performed By: #### A DDONUAPLUS ####[address] [address] [place] Protein,Urine Negative Normal Negative [facility] Comment on above: Order Comment: Name Collection Type:: Clean-Voided Midstream Performed By: #### A DDONUAPLUS ####[address] RBC,Urine 1 [HPF] Normal 0-4 [facility] Comment on above: Order Comment: Name Collection Type:: Clean-Voided Midstream Performed By: #### A DDONUAPLUS ####[address] Specificy [place],Urine 1.006 Normal 1.001-1.03 0 [facility] Comment on above: Order Comment: Name Collection Type:: Clean-Voided Midstream Performed By: #### A DDONUAPLUS ####[address] Urobilinogen,Urine Normal Normal Normal [facility] Comment on above: Order Comment: Name Collection Type:: Clean-Voided Midstream Performed By: #### A DDONUAPLUS ####[address] WBC,Urine 1 [HPF] Normal 0-4 [facility] Comment on above: Order Comment: Name Collection Type:: Clean-Voided Midstream Performed By: #### A DDONUAPLUS ####[address] ECG 12 lead ECGon 07-28-2024 ECG 12 lead ECG Normal [facility] Epithelial cells.squamous [# /area] in Urine sediment by Automated countOrdered By: Juli Thomas on 07-28-2024 Epithelial cells.squamous Auto (Urine sed) [#/Area] Epithelial cells.squamous [#/area] in Urine sediment by Automated count [facility] Erythrocytes [#/area] in Uri ne sediment by Automated countOrdered By: Juli Thomas on 07-28-2024 RBC Auto (Urine sed) [#/Area] Erythrocytes [#/area] in Urine sediment by Automated count 0-4 [facility] Glucose Glucometer (BldC) [M ass/Vol]Ordered By: Juli Thomas on 07-28-2024 Glucose [Mass/Vol] Capillary blood gluc ose measurement by glucometer (mass/volume) [facility] Glucose Poct Glucometerson 1 09-28-2023 Glucose [Mass/Vol] 172 mg/dL Normal [facility] Comment on above: Result Comment: [facility] Glucose Reference Range is dependent on time and content of last meal. Glucose of more than 200 mg/dL in a nonstressed, ambulatory subject supports the diagnosis of Diabetes Mellitus.PERFORMED BY:[address] [place], [place] [phone] MEDICAL DIRECTORRHONDA MCLEAN M.D. Performed By: #### G LULS ####Point of Care testing, Glucose [Mass/volume] in Uri ne by Test stripOrdered By: Juli Thomas on 07-28-2024 Glucose Test strip (U) [Mass/Vol] Glucose [Mass/volume] in Urine by Test strip Normal [facility] Hemoglobin Test strip Ql (U) Ordered By: Juli Thomas on 07-28-2024 Hemoglobin Ql (U) Hemoglobin [Presence ] in Urine by Test strip High Negative [facility] Hyaline casts [#/area] in Ur ine sediment by Automated countOrdered By: Juli Thomas on 07-28-2024 Hyaline casts Auto (Urine sed) [#/Area] Hyaline casts [#/area] in Urine sediment by Automated count 0-8 [facility] INR in Platelet poor plasma by Coagulation assayOrdered By: Juli Thomas on 07-28-2024 INR Coag (PPP) [Relative time] INR in Platelet poor plasma by Coagulation assay [facility] Ketones Test strip Ql (U)Ord ered By: Juli Thomas on 07-28-2024 Ketones Ql (U) Ketones [Presence] i n Urine by Test strip Negative [facility] Leukocyte esterase [Presence ] in Urine by Test stripOrdered By: Juli Thomas on 07-28-2024 Leukocyte esterase Test strip Ql (U) Leukocyte esterase [Presence] in Urine by Test strip Negative [facility] Leukocytes [#/area] in Urine sediment by Automated countOrdered By: Juli Thomas on 07-28-2024 WBC Auto (Urine sed) [#/Area] Leukocytes [#/area] in Urine sediment by Automated count 0-4 [facility] Magnesiumon 07-28-2024 Magnesium [Mass/Vol] 1.5 mg/dL Low 1.9-2.7 [facility] Comment on above: Result Comment: PERF ORMED BY:[place] [place] [address] [address] [place], [place] [phone] MEDICAL DIRECTORRHONDA MCLEAN M.D. Performed By: #### P HOS, MG, BNP, HS TROP, CMP, PTT, PT, CBC ####[address] [address] [facility] Monocyte distribution width [Entitic volume] in Blood by AutomatedOrdered By: Juli Thomas on 07-28-2024 Monocyte distribution width Auto (Bld) [Entitic vol] Monocyte distribution width [Entitic volume] in Blood by Automated High 0.00-20.00 [facility] Natriuretic peptide B [Mass/ Vol]Ordered By: Juli Thomas on 07-28-2024 Natriuretic peptide B (Bld) [Mass/Vol] BNP ser/plas High 5-100 [facility] Nitrite Test strip Ql (U)Ord ered By: Juli Thomas on 07-28-2024 Nitrite Ql (U) Nitrite [Presence] i n Urine by Test strip Negative [facility] Partial Thromboplastin Timeo n 07-28-2024 aPTT Coag (Bld) [Time] 26.3 s Normal 25.1-36.5 Th [facility] Comment on above: Result Comment: A he matocrit value greater than 55% may lead to inaccurate results in coagulation testing. Patients having hematocrit values >55% require a special collection tube for coagulation studies. Please contact the laboratory at [phone] for redraw instructions.PERFORMED BY:[place] [place] [address] [address] [place], [place] [phone] MEDICAL DIRECTORRHONDA MCLEAN M.D. Performed By: #### P HOS, MG, BNP, HS TROP, CMP, PTT, PT, CBC ####[address] [place] [address] [facility] Phosphoruson 07-28-2024 Phosphate [Mass/Vol] 2.8 mg/dL Normal 2.5-4.5 [facility] Comment on above: Performed By: #### P HOS, MG, BNP, HS TROP, CMP, PTT, PT, CBC ####[place] [address] [place] [address] [facility] Protein Test strip (U) [Mass /Vol]Ordered By: Juli Thomas on 07-28-2024 Protein (U) [Mass/Vol] Protein [Mass/vol ume] in Urine by Test strip Negative [facility] Prothrombin Time INRon 07-28 INR Coag (PPP) [Relative time] 1.4 {INR} Normal [facility] Comment on above: [...] BNP, HS TROP, CMP, PTT, PT, CBC ####[place] [address] [place] [id number] [facility] PT Coag (PPP) [Time] 16.0 s High 9.0-12.9 [facility] Comment on above: Result Comment: A he matocrit value greater than 55% may lead to inaccurate results in coagulation testing. Patients having hematocrit values >55% require a special collection tube for coagulation studies. Please contact the laboratory at [phone] for redraw instructions. Performed By: #### P HOS, MG, BNP, HS TROP, CMP, PTT, PT, CBC ####[place] [address] [place] [id number] [facility] Prothrombin time (PT)Ordered By: Juli Thomas on 07-28-2024 PT Coag (PPP) [Time] Prothrombin time (PT) High 9.0- 12.9 [facility] Specific gravity Test strip (U) [Rel density]Ordered By: Juli Thomas on 07-28-2024 Specific gravity (U) [Rel density] Specific gravity of Urine by Test strip 1.001-1.03 0 [facility] Troponin I High Sensitivityo n 07-28-2024 Troponin I High Sensitivity 11.2 pg/mL Normal 0.0-20.0 [facility] Comment on above: Result Comment: PERF ORMED BY:[address] [place], [place] [phone] MEDICAL DIRECTORXIOMYMUSC [facility] Marla Performed By: #### H S TROP ####[address] [address] [facility] Troponin I High Sensitivity 11.1 pg/mL Normal 0.0-20.0 [facility] Comment on above: Result Comment: PERF ORMED BY:[address] [place], [place] [phone] MEDICAL DIRECTORYOUNGADVENTHEALTH REDMONDNALLELY Gutiérrez Performed By: #### P HOS, MG, BNP, HS TROP, CMP, PTT, PT, CBC ####[address] [address] [facility] Troponin I.cardiac [Mass/vol ume] in Serum or Plasma by Detection limit <= 0.01 ng/Ordered By: Juli Thomas on 07-28-2024 Troponin I.cardiac DL <= 0.01 ng/mL [Mass/Vol] Troponin I.cardiac [Mass/volume] in Serum or Plasma by Detection limit <= 0.01 ng/ 0.0-20.0 [facility] Urobilinogen Test strip (U) [Mass/Vol]Ordered By: Juli Thomas on 07-28-2024 Urobilinogen (U) [Mass/Vol] Urobilinogen [Mass/volume] in Urine by Test strip Normal [facility] XR chest 1V portableon 07-28 XR chest 1V portable Normal [facility] aPTT in Platelet poor plasma by Coagulation assayOrdered By: Juli Thomas on 07-28-2024 aPTT Coag (PPP) [Time] Activated partial thromboplastin time (aPTT) in platelet poor plasma by coagulation a 25.1-36.5 [facility] pH Test strip (U)Ordered By: Juli Thomas on 07-28-2024 pH (U) pH of Urine by Test strip 5.0-9.0 [facility] BASIC METABOLIC PANELon Calcium [Mass/Vol] 8.8 mg/dL Normal 8.6-10.3 [facility] Comment on above: Order Comment: FASTI NG:YES FASTING: YES Performed By: #### 1 0165 #### [facility] [address], [address] [place] [address] Booster Assembler: Daniele Carlson MD Chloride [Moles/Vol] 103 mmol/L Normal 98-110 [facility] Comment on above: Order Comment: FASTI NG:YES FASTING: YES Performed By: #### 1 0165 #### [facility] [address], [address] [place] [address] Booster Assembler: Daniele Carlson MD CO2 [Moles/Vol] 30 mmol/L Normal 20-32 [facility] Comment on above: Order Comment: FASTI NG:YES FASTING: YES Performed By: #### 1 0165 #### [facility] [place] [address] Booster Assembler: Daniele Carlson MD Creatinine [Mass/Vol] 1.18 mg/dL Normal 0.70-1.22 [facility] Comment on above: Order Comment: FASTI NG:YES FASTING: YES Performed By: #### 1 0165 #### [facility] [place] [address] Booster Assembler: Daniele Carlson MD GFR/1.73 sq M.predicted among non-blacks MDRD (S/P/Bld) [Vol rate/Area] 62 mL/min/{1.73_m2} Normal > OR = 60 [facility] Comment on above: Order Comment: FASTI NG:YES FASTING: YES Performed By: #### 1 0165 #### [facility] [place] [address] Booster Assembler: Daniele Carlson MD Glucose [Mass/Vol] 99 mg/dL Normal 65-99 [facility] Comment on above: Order Comment: FASTI NG:YES FASTING: YES Result Comment: Fasting reference interval Performed By: #### 1 0165 #### [facility] [place] [address] Booster Assembler: Daniele Carlson MD Potassium [Moles/Vol] 3.3 mmol/L Low 3.5-5.[address] [facility] Comment on above: Order Comment: FASTI NG:YES FASTING: YES Performed By: #### 1 0165 #### [facility] [place] [address] Booster Assembler: Daniele Carlson MD Sodium [Moles/Vol] 143 mmol/L Normal 135-146 [facility] Comment on above: Order Comment: FASTI NG:YES FASTING: YES Performed By: #### 1 0165 #### [facility] [place] [address] Booster Assembler: Daniele Carlson MD Urea nitrogen [Mass/Vol] 26 mg/dL High 7-25 [facility] Comment on above: Order Comment: FASTI NG:YES FASTING: YES Performed By: #### 1 0165 #### [facility] [place] [address] Booster Assembler: Daniele Carlson MD Urea nitrogen/Creatinine [Mass ratio] 22 mg/mg Normal 6-22 [facility] Comment on above: Order Comment: FASTI NG:YES FASTING: YES Performed By: #### 1 0165 #### [facility] [place] [address] Booster Assembler: Daniele Carlson MD Basic Metabolic Panelon 11-2 Anion gap [Moles/Vol] 9.9 mmol/L Normal 6.0-15.0 [facility] Comment on above: Performed By: #### B MP, MG, CBC ####[facility] [place] [id number] [facility] Calcium [Mass/Vol] 8.8 mg/dL Normal 8.6-10.3 [facility] Comment on above: Performed By: #### B MP, MG, CBC ####[place] [id number] [facility] Chloride [Moles/Vol] 109 mmol/L High 98-107 [facility] Comment on above: Performed By: #### B MP, MG, CBC ####[place] [id number] [facility] CO2 [Moles/Vol] 27.4 mmol/L Normal 21.0-31.0 [facility] Comment on above: Performed By: #### B MP, MG, CBC ####[address] Creatinine [Mass/Vol] 1.08 mg/dL Normal 0.70-1.30 [facility] Comment on above: Performed By: #### B MP, MG, CBC ####[place] [address] [place] Creatinine Clr Calc Pharmacy 75.22 Normal [facility] Comment on above: Performed By: #### B MP, MG, CBC ####[place] [id number] [place] GFR/1.73 sq M.predicted MDRD (S/P/Bld) [Vol rate/Area] mL/min/{1.73_m2} Normal [facility] Comment on above: Performed By: #### B MP, MG, CBC ####[place] [id number] [facility] Glucose [Mass/Vol] 93 mg/dL Normal 70-100 [facility] Comment on above: Result Comment: [place] [facility] Glucose Reference Range is dependent on time and content of last meal. Glucose of more than 200 mg/dL in a nonstressed, ambulatory subject supports the diagnosis of Diabetes Mellitus. ADA recommended reference range Performed By: #### B MP, MG, CBC ####[address] [place] [address] [place] Potassium [Moles/Vol] 3.3 mmol/L Low 3.5-5.1 [facility] Comment on above: Performed By: #### B MP, MG, CBC ####[facility] Sodium [Moles/Vol] 143 mmol/L Significant change down 136-145 [facility] Comment on above: Performed By: #### B MP, MG, CBC ####[facility] Urea nitrogen [Mass/Vol] 21 mg/dL Normal 7-25 [facility] Comment on above: Performed By: #### B MP, MG, CBC ####[facility] Basophils Auto (Bld) [#/Vol] Ordered By: Danie Jaramillo on 07-12-2024 Basophils (Bld) [#/Vol] Automated basophil count 0.0-0.2 [facility] Basophils/100 WBC Auto (Bld) Ordered By: Danie Jaramillo on 07-12-2024 Basophils/100 WBC (Bld) Automated basophil % . [facility] Calcium [Mass/volume] in Ser um or PlasmaOrdered By: Danie Jaramillo on 07-12-2024 Calcium [Mass/Vol] Calcium [Mass/volume ] in Serum or Plasma 8.6-10.3 [facility] Carbon dioxide, total [Moles /volume] in Serum or PlasmaOrdered By: Danie Jaramillo on 07-12-2024 CO2 [Moles/Vol] Carbon dioxide, tota l [Moles/volume] in Serum or Plasma 21.0-31.0 [facility] Chloride [Moles/volume] in S [place] or PlasmaOrdered By: Danie Jaramillo on 07-12-2024 Chloride [Moles/Vol] Chloride [Moles/vol ume] in Serum or Plasma High 98-107 [facility] Complete Blood Count Auto Di ffon 07-12-2024 Basophils (Bld) [#/Vol] 0.0 10*3/uL Normal 0.0-0.2 [facility] Comment on above: Result Comment: PERF ORMED BY:[address] [place], [place] [phone] MEDICAL DIRECTORRHONDA MCLEAN M.D. Performed By: #### B MP, MG, CBC ####[place] [id number] [facility] Basophils/100 WBC (Bld) 0.5 % Normal . [facility] Comment on above: Performed By: #### B MP, MG, CBC ####[place] [id number] [facility] Eosinophils (Bld) [#/Vol] 0.2 10*3/uL Normal 0.0-0.45 [facility] Comment on above: Performed By: #### B MP, MG, CBC ####[address] Eosinophils/100 WBC (Bld) 2.1 % Normal . [facility] Comment on above: Performed By: #### B MP, MG, CBC ####[address] Erythrocyte distribution width (RBC) [Ratio] 14.5 % Normal 12.0-14.8 [facility] Comment on above: Performed By: #### B MP, MG, CBC ####[place] [id number] [facility] Hematocrit (Bld) [Volume fraction] 36.1 % Low 38.8-50.0 [facility] Comment on above: Performed By: #### B MP, MG, CBC ####[place] [id number] [facility] Hemoglobin (Bld) [Mass/Vol] 12.2 g/dL Low 13.0-17.0 [facility] Comment on above: Performed By: #### B MP, MG, CBC ####[address] Lymphocytes (Bld) [#/Vol] 1.5 10*3/uL Normal 1.00-4.8 [facility] Comment on above: Performed By: #### B MP, MG, CBC ####[address] Lymphocytes/100 WBC (Bld) 18.6 % Normal . [facility] Comment on above: Performed By: #### B MP, MG, CBC ####[address] MCH (RBC) [Entitic mass] 30.8 pg Normal 27.5-35.2 [facility] Comment on above: Performed By: #### B MP, MG, CBC ####[address] MCV (RBC) [Entitic vol] 91.0 fL Normal 83.5-101 [facility] Comment on above: Performed By: #### B MP, MG, CBC ####[address] Mean Corpuscular HGB Conc 33.8 g/dL Normal 32.5-35.6 [facility] Comment on above: Performed By: #### B MP, MG, CBC ####[address] Monocytes (Bld) [#/Vol] 0.8 10*3/uL Normal 0.0-0.8 [facility] Comment on above: Performed By: #### B MP, MG, CBC ####[address] Monocytes/100 WBC (Bld) 10.5 % Normal . [facility] Comment on above: Performed By: #### B MP, MG, CBC ####[address] Neutrophils (Bld) [#/Vol] 5.5 10*3/uL Normal 1.8-7.7 [facility] Comment on above: Performed By: #### B MP, MG, CBC ####[address] Neutrophils/100 WBC (Bld) 68.3 % Normal . [facility] Comment on above: Performed By: #### B MP, MG, CBC ####[address] NRBC% 0.1 /100{WBC} Normal 0-0.5 [facility] Comment on above: Performed By: #### B MP, MG, CBC ####[address] Platelet mean volume (Bld) [Entitic vol] 8.0 fL Normal 6.6-10.1 [facility] Comment on above: Performed By: #### B MP, MG, CBC ####[address] Platelets (Bld) [#/Vol] 208 10*3/uL Normal 150-450 [facility] Comment on above: Performed By: #### B MP, MG, CBC ####[address] RBC (Bld) [#/Vol] 3.96 10*6/uL Normal 3.90-5.60 [facility] Comment on above: Performed By: #### B MP, MG, CBC ####[address] WBC (Bld) [#/Vol] 8.1 10*3/uL Normal 4.1-10.5 [facility] Comment on above: Performed By: #### B MP, MG, CBC ####[address] Creatinine [Mass/volume] in Serum or PlasmaOrdered By: Danie Jaramillo on 07-12-2024 Creatinine [Mass/Vol] Creatinine [Mass/v olume] in Serum or Plasma 0.70-1.30 [facility] Eosinophils Auto (Bld) [#/Vo l]Ordered By: Danie Jaramillo on 07-12-2024 Eosinophils (Bld) [#/Vol] Automated eosinophil count 0.0-0.45 [facility] Eosinophils/100 WBC Auto (Bl d)Ordered By: Danie Jaramillo on 07-12-2024 Eosinophils/100 WBC (Bld) Automated eosinophil % . [facility] Erythrocyte distribution wid th Auto (RBC) [Ratio]Ordered By: Danie Jaramillo on 07-12-2024 Erythrocyte distribution width (RBC) [Ratio] Erythrocyte distribution width [Ratio] by Automated count 12.0-14.8 [facility] Glucose [Mass/volume] in Ser um or PlasmaOrdered By: Danie Jaramillo on 07-12-2024 Glucose [Mass/Vol] Glucose [Mass/volume ] in Serum or Plasma 70-100 [facility] Hematocrit Auto (Bld) [Volum e fraction]Ordered By: Danie Jaramillo on 07-12-2024 Hematocrit (Bld) [Volume fraction] Hematocrit [Volume Fraction] of Blood by Automated count Low 38.8-50.0 [facility] Hemoglobin [Mass/volume] in BloodOrdered By: Danie Jaramillo on 07-12-2024 Hemoglobin (Bld) [Mass/Vol] Hemoglobin [Mass/volume] in Blood Low 13.0-17.0 [facility] Leukocytes [#/volume] correc blessing for nucleated erythrocytes in Blood by Automated counOrdered By: Danie Jaramillo on 07-12-2024 WBC corrected for nucl RBC Auto (Bld) [#/Vol] Leukocytes [#/volume] corrected for nucleated erythrocytes in Blood by Automated coun 4.1-10.5 [facility] Lymphocytes Auto (Bld) [#/Vo l]Ordered By: Danie Jaramillo on 07-12-2024 Lymphocytes (Bld) [#/Vol] Lymphocytes [#/volume] in Blood by Automated count 1.00-4.8 [facility] Lymphocytes/100 WBC Auto (Bl d)Ordered By: Danie Jaramillo on 07-12-2024 Lymphocytes/100 WBC (Bld) Lymphocytes/100 leukocytes in Blood by Automated count . [facility] MCH Auto (RBC) [Entitic mass ]Ordered By: Danie Jaramillo on 07-12-2024 MCH (RBC) [Entitic mass] MCH [Entitic mass] by Automated count 27.5-35.2 [facility] MCHC Auto (RBC) [Mass/Vol]Or dered By: Danie Jaramillo on 07-12-2024 MCHC (RBC) [Mass/Vol] MCHC [Mass/volume] by Automated count 32.5-35.6 [facility] MCV Auto (RBC) [Entitic vol] Ordered By: Danie Jaramillo on 07-12-2024 MCV (RBC) [Entitic vol] MCV [Entitic volume] by Automated count 83.5-101 [facility] Magnesiumon 07-12-2024 Magnesium [Mass/Vol] 1.6 mg/dL Low 1.9-2.7 [facility] Comment on above: Result Comment: PERF ORMED BY:[facility] [place], [place] [phone] MEDICAL DIRECTORRHONDA MCLEAN M.D. Performed By: #### B MP, MG, CBC ####[facility] [place] [address] [facility] Magnesium [Mass/volume] in S [place] or PlasmaOrdered By: Danie Jaramillo on 07-12-2024 Magnesium [Mass/Vol] Magnesium [Mass/vol ume] in Serum or Plasma Low 1.9-2.7 [facility] Monocytes Auto (Bld) [#/Vol] Ordered By: Danie Jaramillo on 07-12-2024 Monocytes (Bld) [#/Vol] Automated blood monocyte count 0.0-0.8 [facility] Monocytes/100 WBC Auto (Bld) Ordered By: Danie Jaramillo on 07-12-2024 Monocytes/100 WBC (Bld) Automated monocyte % . [facility] Neutrophils Auto (Bld) [#/Vo l]Ordered By: Danie Jaramillo on 07-12-2024 Neutrophils (Bld) [#/Vol] Neutrophils [#/volume] in Blood by Automated count 1.8-7.7 [facility] Neutrophils/100 WBC Auto (Bl d)Ordered By: Danie Jaramillo on 07-12-2024 Neutrophils/100 WBC (Bld) Automated neutrophil % . [facility] No Panel InformationOrdered By: Danie Jaramillo on 07-12-2024 > 60.0 mL/Min [facility] 75.22 [facility] Nucleated erythrocytes [Pres ence] in Blood by Automated countOrdered By: Danie Jaramillo on 07-12-2024 Nucleated RBC Auto Ql (Bld) Nucleated erythrocytes [Presence] in Blood by Automated count 0-0.5 [facility] Platelet mean volume Auto (B ld) [Entitic vol]Ordered By: Danie Jaramillo on 07-12-2024 Platelet mean volume (Bld) [Entitic vol] Platelet mean volume [Entitic volume] in Blood by Automated count 6.6-10.1 [facility] Platelets Auto (Bld) [#/Vol] Ordered By: Danie Jaramillo on 07-12-2024 Platelets (Bld) [#/Vol] Platelets [#/volume] in Blood by Automated count 150-450 [facility] Potassium [Moles/volume] in Serum or PlasmaOrdered By: Danie Jaramillo on 07-12-2024 Potassium [Moles/Vol] Potassium [Moles/v olume] in Serum or Plasma Low 3.5-5.1 [facility] RBC Auto (Bld) [#/Vol]Ordere d By: Danie Jaramillo on 07-12-2024 RBC (Bld) [#/Vol] Erythrocytes [#/volu me] in Blood by Automated count 3.90-5.60 [facility] Serum or plasma anion gap de terminationOrdered By: Danie Jaramillo on 07-12-2024 Anion gap [Moles/Vol] Serum or plasma an ion gap determination 6.0-15.0 [facility] Sodium [Moles/volume] in Ser um or PlasmaOrdered By: Danie Jaramillo on 07-12-2024 Sodium [Moles/Vol] Sodium [Moles/volume ] in Serum or Plasma Significant change down 136-145 [facility] Urea nitrogen [Mass/volume] in Serum or PlasmaOrdered By: Danie Jaramillo on 07-12-2024 Urea nitrogen [Mass/Vol] Urea nitrogen [Mass/volume] in Serum or Plasma 7-25 [facility] WBC Auto (Bld) [#/Vol]Ordere d By: Danie Jaramillo on 07-12-2024 WBC (Bld) [#/Vol] Leukocytes [#/volume ] in Blood by Automated count 4.1-10.5 [facility] Basic Metabolic Panelon 11-2 Anion gap [Moles/Vol] Not performed Normal 6.0-15.0 [facility] Comment on above: Performed By: #### C BC, MG, BMP ####[place] [address] [place] [address] [facility] Calcium [Mass/Vol] 8.9 mg/dL Normal 8.6-10.3 [facility] Comment on above: Performed By: #### C BC, MG, BMP ####[place] [address] [place] [address] [facility] Chloride [Moles/Vol] 110 mmol/L High 98-107 [facility] Comment on above: Performed By: #### C BC, MG, BMP ####[address] [address] [facility] CO2 [Moles/Vol] 27.8 mmol/L Normal 21.0-31.0 [facility] Comment on above: Performed By: #### C BC, MG, BMP ####[address] [address] [place] Creatinine [Mass/Vol] 1.07 mg/dL Normal 0.70-1.30 [facility] Comment on above: Performed By: #### C BC, MG, BMP ####[address] [address] [place] Creatinine Clr Calc Pharmacy 75.55 Normal [facility] Comment on above: Performed By: #### C BC, MG, BMP ####[address] [address] [place] GFR/1.73 sq M.predicted MDRD (S/P/Bld) [Vol rate/Area] mL/min/{1.73_m2} Normal [facility] Comment on above: Performed By: #### C BC, MG, BMP ####[place] [id number] [facility] Glucose [Mass/Vol] 100 mg/dL Normal 70-100 [facility] Comment on above: Result Comment: [facility] Glucose Reference Range is dependent on time and content of last meal. Glucose of more than 200 mg/dL in a nonstressed, ambulatory subject supports the diagnosis of Diabetes Mellitus. ADA recommended reference range Performed By: #### C BC MG, BMP ####[place] [address] Potassium Normal 3.5-5.1 [facility] Comment on above: Result Comment: Spec imen hemolyzed, redraw requested Performed By: #### C VERÓNICA, MG, BMP ####[address] Sodium [Moles/Vol] 136 mmol/L Normal 136-145 [facility] Comment on above: Performed By: #### C VERÓNICA MG, BMP ####[address] Urea nitrogen [Mass/Vol] 25 mg/dL Normal 7-25 [facility] Comment on above: Performed By: #### C VERÓNICA MG, BMP ####[place] [id number] [facility] Complete Blood Count Auto Di ffon 07-11-2024 Basophils (Bld) [#/Vol] 0.0 10*3/uL Normal 0.0-0.2 [facility] Comment on above: Result Comment: PERF ORMED BY:[address] [place], [place] [phone] MEDICAL DIRECTORRHONDA MCLEAN M.D. Performed By: #### C BC, MG, BMP ####[place] [id number] [facility] Basophils/100 WBC (Bld) 0.5 % Normal . [facility] Comment on above: Performed By: #### C BC MG, BMP ####[place] [id number] [facility] Eosinophils (Bld) [#/Vol] 0.1 10*3/uL Normal 0.0-0.45 [facility] Comment on above: Performed By: #### C BC, MG, BMP ####[address] Eosinophils/100 WBC (Bld) 1.3 % Normal . [facility] Comment on above: Performed By: #### C BC, MG, BMP ####[address] Erythrocyte distribution width (RBC) [Ratio] 15.1 % High 12.0-14.8 [facility] Comment on above: Performed By: #### C BC, MG, BMP ####[address] Hematocrit (Bld) [Volume fraction] 37.7 % Low 38.8-50.0 [facility] Comment on above: Performed By: #### C BC, MG, BMP ####[address] Hemoglobin (Bld) [Mass/Vol] 12.6 g/dL Low 13.0-17.0 [facility] Comment on above: Performed By: #### C BC, MG, BMP ####[address] Lymphocytes (Bld) [#/Vol] 1.4 10*3/uL Normal 1.00-4.8 [facility] Comment on above: Performed By: #### C BC, MG, BMP ####[address] Lymphocytes/100 WBC (Bld) 19.1 % Normal . [facility] Comment on above: Performed By: #### C BC, MG, BMP ####[address] MCH (RBC) [Entitic mass] 30.6 pg Normal 27.5-35.2 [facility] Comment on above: Performed By: #### C BC, MG, BMP ####[place] [id number] [facility] MCV (RBC) [Entitic vol] 91.4 fL Normal 83.5-101 [facility] Comment on above: Performed By: #### C BC, MG, BMP ####[address] Mean Corpuscular HGB Conc 33.5 g/dL Normal 32.5-35.6 [facility] Comment on above: Performed By: #### C BC, MG, BMP ####[address] Monocytes (Bld) [#/Vol] 0.7 10*3/uL Normal 0.0-0.8 [facility] Comment on above: Performed By: #### C BC, MG, BMP ####[address] Monocytes/100 WBC (Bld) 9.1 % Normal . [facility] Comment on above: Performed By: #### C BC, MG, BMP ####[address] Neutrophils (Bld) [#/Vol] 5.2 10*3/uL Normal 1.8-7.7 [facility] Comment on above: Performed By: #### C BC, MG, BMP ####[address] Neutrophils/100 WBC (Bld) 70.0 % Normal . [facility] Comment on above: Performed By: #### C BC, MG, BMP ####[address] NRBC% 0.1 /100{WBC} Normal 0-0.5 [facility] Comment on above: Performed By: #### C BC, MG, BMP ####[address] Platelet mean volume (Bld) [Entitic vol] 8.0 fL Normal 6.6-10.1 [facility] Comment on above: Performed By: #### C BC, MG, BMP ####[address] Platelets (Bld) [#/Vol] 217 10*3/uL Normal 150-450 [facility] Comment on above: Performed By: #### C BC, MG, BMP ####[address] RBC (Bld) [#/Vol] 4.13 10*6/uL Normal 3.90-5.60 [facility] Comment on above: Performed By: #### C BC, MG, BMP ####[address] WBC (Bld) [#/Vol] 7.4 10*3/uL Normal 4.1-10.5 [facility] Comment on above: Performed By: #### C BC, MG, BMP ####[address] Magnesiumon 07-11-2024 Magnesium Normal 1.9-2.7 [facility] Comment on above: Result Comment: Spec imen hemolyzed, redraw requestedPERFORMED BY:[address] [place], [place] [phone] MEDICAL DIRECTORRHONDA MCLEAN M.D. Performed By: #### C BC, MG, BMP ####[address] Redraw Magnesiumon 4 Magnesium [Mass/Vol] 1.6 mg/dL Low 1.9-2.7 [facility] Comment on above: Result Comment: PERF ORMED BY:[address] [place], [place] [phone] MEDICAL DIRECTORRHONDA MCLEAN M.D. Performed By: #### R EDRAW MG, REDRAW K ####[place] [id number] [facility] Redraw Potassiumon 4 Potassium [Moles/Vol] 3.5 mmol/L Normal 3.5-5.1 [facility] Comment on above: Performed By: #### R EDRAW MG, REDRAW K ####[place] [id number] [facility] Basic Metabolic Panelon 11-2 Anion gap [Moles/Vol] 11.4 mmol/L Normal 6.0-15.0 [facility] Comment on above: Performed By: #### M G, CBC, BMP ####[place] [id number] [facility] Calcium [Mass/Vol] 9.0 mg/dL Normal 8.6-10.3 [facility] Comment on above: Performed By: #### Marcial G, CBC, BMP ####[place] [id number] [facility] Chloride [Moles/Vol] 106 mmol/L Normal 98-107 [facility] Comment on above: Performed By: #### Marcial G, CBC, BMP ####[place] [id number] [facility] CO2 [Moles/Vol] 27.8 mmol/L Normal 21.0-31.0 [facility] Comment on above: Performed By: #### Marcial Young, CBC, BMP ####[place] [id number] [facility] Creatinine [Mass/Vol] 1.29 mg/dL Significan t change down 0.70-1.30 [facility] Comment on above: Performed By: #### Marcial Young, CBC, BMP ####[place] [id number] [facility] Creatinine Clr Calc Pharmacy 62.66 Normal [facility] Comment on above: Performed By: #### M G, CBC, BMP ####[place] [id number] [facility] Estimated GFR 56.052 mL/Min Normal [facility] Comment on above: Performed By: #### M G, CBC, BMP ####[place] [id number] [facility] Glucose [Mass/Vol] 110 mg/dL High 70-100 [facility] Comment on above: Result Comment: [place] Glucose Reference Range is dependent on time and content of last meal. Glucose of more than 200 mg/dL in a nonstressed, ambulatory subject supports the diagnosis of Diabetes Mellitus. ADA recommended reference range Performed By: #### M G, CBC, BMP ####[place] [address] [place] [id number] [facility] Potassium [Moles/Vol] 4.2 mmol/L Normal 3.5-5.1 [facility] Comment on above: Performed By: #### M Hannah, CBC, BMP ####[address] Sodium [Moles/Vol] 141 mmol/L Normal 136-145 [facility] Comment on above: Performed By: #### Marcial Young, CBC, BMP ####[place] [id number] [facility] Urea nitrogen [Mass/Vol] 29 mg/dL High 7-25 [facility] Comment on above: Performed By: #### Marcial Young, CBC, BMP ####[place] [id number] [facility] Complete Blood Count Auto Di ffon 07-10-2024 Basophils (Bld) [#/Vol] 0.0 10*3/uL Normal 0.0-0.2 [facility] Comment on above: Result Comment: PERF ORMED BY:[address] [place], [place] [phone] MEDICAL DIRECTORRHONDA MCLEAN M.D. Performed By: #### Marcial G, CBC, BMP ####[place] [id number] [facility] Basophils/100 WBC (Bld) 0.6 % Normal . [facility] Comment on above: Performed By: #### Marcial G, CBC, BMP ####[place] [id number] [facility] Eosinophils (Bld) [#/Vol] 0.0 10*3/uL Normal 0.0-0.45 [facility] Comment on above: Performed By: #### Marcial G, CBC, BMP ####[place] [id number] [facility] Eosinophils/100 WBC (Bld) 0.4 % Normal . [facility] Comment on above: Performed By: #### M G, CBC, BMP ####[place] [id number] [facility] Erythrocyte distribution width (RBC) [Ratio] 14.7 % Normal 12.0-14.8 [facility] Comment on above: Performed By: #### M G, CBC, BMP ####[address] Hematocrit (Bld) [Volume fraction] 37.6 % Low 38.8-50.0 [facility] Comment on above: Performed By: #### M G, CBC, BMP ####[place] [id number] [facility] Hemoglobin (Bld) [Mass/Vol] 12.7 g/dL Low 13.0-17.0 [facility] Comment on above: Performed By: #### M G, CBC, BMP ####[address] Lymphocytes (Bld) [#/Vol] 1.1 10*3/uL Normal 1.00-4.8 [facility] Comment on above: Performed By: #### M G, CBC, BMP ####[place] [id number] [facility] Lymphocytes/100 WBC (Bld) 13.3 % Normal . [facility] Comment on above: Performed By: #### M G, CBC, BMP ####[place] [id number] [facility] MCH (RBC) [Entitic mass] 31.1 pg Normal 27.5-35.2 [facility] Comment on above: Performed By: #### M G, CBC, BMP ####[place] [id number] [facility] MCV (RBC) [Entitic vol] 91.9 fL Normal 83.5-101 [facility] Comment on above: Performed By: #### M G, CBC, BMP ####[address] Mean Corpuscular HGB Conc 33.9 g/dL Normal 32.5-35.6 [facility] Comment on above: Performed By: #### M G, CBC, BMP ####[address] Monocytes (Bld) [#/Vol] 0.8 10*3/uL Normal 0.0-0.8 [facility] Comment on above: Performed By: #### M G, CBC, BMP ####[address] Monocytes/100 WBC (Bld) 10.5 % Normal . [facility] Comment on above: Performed By: #### M G, CBC, BMP ####[address] Neutrophils (Bld) [#/Vol] 6.0 10*3/uL Normal 1.8-7.7 [facility] Comment on above: Performed By: #### M G, CBC, BMP ####[address] Neutrophils/100 WBC (Bld) 75.2 % Normal . [facility] Comment on above: Performed By: #### M G, CBC, BMP ####[address] NRBC% 0.1 /100{WBC} Normal 0-0.5 [facility] Comment on above: Performed By: #### M G, CBC, BMP ####[address] Platelet mean volume (Bld) [Entitic vol] 8.2 fL Normal 6.6-10.1 [facility] Comment on above: Performed By: #### M G, CBC, BMP ####[address] Platelets (Bld) [#/Vol] 210 10*3/uL Normal 150-450 [facility] Comment on above: Performed By: #### M G, CBC, BMP ####[address] RBC (Bld) [#/Vol] 4.09 10*6/uL Normal 3.90-5.60 [facility] Comment on above: Performed By: #### M G, CBC, BMP ####[address] WBC (Bld) [#/Vol] 8.0 10*3/uL Normal 4.1-10.5 [facility] Comment on above: Performed By: #### M G, CBC, BMP ####[place] [id number] [facility] Magnesiumon 07-10-2024 Magnesium [Mass/Vol] 1.9 mg/dL Normal 1.9-2.7 [facility] Comment on above: Result Comment: PERF ORMED BY:[address] [place], [place] [phone] MEDICAL DIRECTORRHONDA MCLEAN M.D. Performed By: #### M G, CBC, BMP ####[place] [id number] [facility] Alanine aminotransferase [En zymatic activity/volume] in Serum or PlasmaOrdered By: Juli Thomas on 07-09-2024 ALT [Catalytic activity/Vol] Alanine aminotransferase [Enzymatic activity/volume] in Serum or Plasma [facility] Albumin [Mass/volume] in Ser um or Plasma by Bromocresol green (BCG) dye binding methoOrdered By: Juli Thomas on 07-09-2024 Albumin BCG dye [Mass/Vol] Albumin [Mass/volume] in Serum or Plasma by Bromocresol green (BCG) dye binding metho 3.5-5.7 [facility] Alkaline phosphatase [Enzyma tic activity/volume] in Serum or PlasmaOrdered By: Juli Thomas on 07-09-2024 ALP [Catalytic activity/Vol] Alkaline phosphatase [Enzymatic activity/volume] in Serum or Plasma 34-104 [facility] Appearance of UrineOrdered B y: Juli Thomas on 07-09-2024 Appearance (U) Urine appearance Clear [facility] Aspartate aminotransferase [ Enzymatic activity/volume] in Serum or PlasmaOrdered By: Juli Adiadeborah on 07-09-2024 AST [Catalytic activity/Vol] Aspartate aminotransferase [Enzymatic activity/volume] in Serum or Plasma 13-39 [facility] Bacteria [Presence] in Urine by AutomatedOrdered By: Juli Thomas on 07-09-2024 Bacteria Auto Ql (U) Bacteria [Presence] in Urine by Automated None Seen [facility] Basophils Auto (Bld) [#/Vol] Ordered By: Juli Safcomagdalena on 07-09-2024 Basophils (Bld) [#/Vol] Automated basophil count 0.0-0.2 [facility] Basophils/100 WBC Auto (Bld) Ordered By: [facility] on 07-09-2024 Basophils/100 WBC (Bld) Automated basophil % . [facility] Bilirubin Test strip Ql (U)O rdered By: Juli Thomas on 07-09-2024 Bilirubin Ql (U) Bilirubin.total [Pre sence] in Urine by Test strip Negative [facility] Bilirubin.total [Mass/volume ] in Serum or PlasmaOrdered By: Juli Thomas on 07-09-2024 Bilirubin [Mass/Vol] Bilirubin.total [Mass/volume] in Serum or Plasma 0.3-1.0 [facility] C reactive protein [Mass/vol ume] in Serum or PlasmaOrdered By: Juli Thomas on 07-09-2024 CRP [Mass/Vol] C reactive protein [Mass/volume] in Serum or Plasma High 0.0-0.5 [facility] C-Reactive Proteinon 024 C-Reactive Protein 3.1 mg/dL High 0.0-0.5 [facility] Comment on above: Result Comment: PERF ORMED BY:[facility] [place], [place] [phone] MEDICAL DIRECTORRHONDA MCLEAN M.D. Performed By: #### C RP, HS TROP, CBC, MG, PT, PTT, CMP ####[place] [address] [place] [address] [facility] CT angio neckon 07-09-2024 CT angio neck Normal [facility] CT head stroke alert wo cono n 07-09-2024 CT head stroke alert wo con Normal [facility] Calcium [Mass/volume] in Ser um or PlasmaOrdered By: Juli Thomas on 07-09-2024 Calcium [Mass/Vol] Calcium [Mass/volume ] in Serum or Plasma 8.6-10.3 [facility] Carbon dioxide, total [Moles /volume] in Serum or PlasmaOrdered By: Juli Thomas on 07-09-2024 CO2 [Moles/Vol] Carbon dioxide, tota l [Moles/volume] in Serum or Plasma 21.0-31.0 [facility] Chloride [Moles/volume] in S [place] or PlasmaOrdered By: Juli Thomas on 07-09-2024 Chloride [Moles/Vol] Chloride [Moles/vol ume] in Serum or Plasma 98-107 [facility] Color Auto (U)Ordered By: Co magan Thomas on 07-09-2024 Color (U) Color of Urine by Auto Yellow [facility] Complete Blood Count Auto Di ffon 07-09-2024 Basophils (Bld) [#/Vol] 0.0 10*3/uL Normal 0.0-0.2 [facility] Comment on above: Result Comment: PERF ORMED BY:[place] [address] [place], [place] [phone] MEDICAL DIRECTORRHONDA MCLEAN M.D. Performed By: #### C RP, HS TROP, CBC, MG, PT, PTT, CMP ####[place] [address] [place] [id number] [facility] Basophils/100 WBC (Bld) 0.4 % Normal . [facility] Comment on above: Performed By: #### C RP, HS TROP, CBC, MG, PT, PTT, CMP ####[facility] [address] Eosinophils (Bld) [#/Vol] 0.1 10*3/uL Normal 0.0-0.45 [facility] Comment on above: Performed By: #### C RP, HS TROP, CBC, MG, PT, PTT, CMP ####[address] Eosinophils/100 WBC (Bld) 0.6 % Normal . [facility] Comment on above: Performed By: #### C RP, HS TROP, CBC, MG, PT, PTT, CMP ####[address] Erythrocyte distribution width (RBC) [Ratio] 15.0 % High 12.0-14.8 [facility] Comment on above: Performed By: #### C RP, HS TROP, CBC, MG, PT, PTT, CMP ####[address] Hematocrit (Bld) [Volume fraction] 39.5 % Normal 38.8-50.0 [facility] Comment on above: Performed By: #### C RP, HS TROP, CBC, MG, PT, PTT, CMP ####[address] Hemoglobin (Bld) [Mass/Vol] 13.1 g/dL Normal 13.0-17.0 [facility] Comment on above: Performed By: #### C RP, HS TROP, CBC, MG, PT, PTT, CMP ####[address] Lymphocytes (Bld) [#/Vol] 0.7 10*3/uL Low 1.00-4.8 [facility] Comment on above: Performed By: #### C RP, HS TROP, CBC, MG, PT, PTT, CMP ####[address] Lymphocytes/100 WBC (Bld) 6.3 % Normal . [facility] Comment on above: Performed By: #### C RP, HS TROP, CBC, MG, PT, PTT, CMP ####[address] MCH (RBC) [Entitic mass] 30.8 pg Normal 27.5-35.2 [facility] Comment on above: Performed By: #### C RP, HS TROP, CBC, MG, PT, PTT, CMP ####[address] MCV (RBC) [Entitic vol] 92.6 fL Normal 83.5-101 [facility] Comment on above: Performed By: #### C RP, HS TROP, CBC, MG, PT, PTT, CMP ####[address] Mean Corpuscular HGB Conc 33.2 g/dL Normal 32.5-35.6 [facility] Comment on above: Performed By: #### C RP, HS TROP, CBC, MG, PT, PTT, CMP ####[address] Monocytes (Bld) [#/Vol] 1.3 10*3/uL High 0.0-0.8 [facility] Comment on above: Performed By: #### C RP, HS TROP, CBC, MG, PT, PTT, CMP ####[address] Monocytes/100 WBC (Bld) 18.70 % Normal 0.00-20.00 [facility] Comment on above: Performed By: #### C RP, HS TROP, CBC, MG, PT, PTT, CMP ####[address] Monocytes/100 WBC (Bld) 12.2 % Normal . [facility] Comment on above: Performed By: #### C RP, HS TROP, CBC, MG, PT, PTT, CMP ####[address] Neutrophils (Bld) [#/Vol] 8.4 10*3/uL High 1.8-7.7 [facility] Comment on above: Performed By: #### C RP, HS TROP, CBC, MG, PT, PTT, CMP ####[address] Neutrophils/100 WBC (Bld) 80.5 % Normal . [facility] Comment on above: Performed By: #### C RP, HS TROP, CBC, MG, PT, PTT, CMP ####[address] NRBC% 0.0 /100{WBC} Normal 0-0.5 [facility] Comment on above: Performed By: #### C RP, HS TROP, CBC, MG, PT, PTT, CMP ####[address] Platelet mean volume (Bld) [Entitic vol] 7.9 fL Normal 6.6-10.1 [facility] Comment on above: Performed By: #### C RP, HS TROP, CBC, MG, PT, PTT, CMP ####[address] Platelets (Bld) [#/Vol] 229 10*3/uL Normal 150-450 [facility] Comment on above: Performed By: #### C RP, HS TROP, CBC, MG, PT, PTT, CMP ####[address] RBC (Bld) [#/Vol] 4.27 10*6/uL Normal 3.90-5.60 [facility] Comment on above: Performed By: #### C RP, HS TROP, CBC, MG, PT, PTT, CMP ####[address] WBC (Bld) [#/Vol] 10.4 10*3/uL Normal 4.1-10.5 [facility] Comment on above: Performed By: #### C RP, HS TROP, CBC, MG, PT, PTT, CMP ####[address] Comprehensive Metabolic Pane rc 07-09-2024 Albumin [Mass/Vol] 3.5 g/dL Normal 3.5-5.7 [facility] Comment on above: Performed By: #### C RP, HS TROP, CBC, MG, PT, PTT, CMP ####[address] Albumin/Globulin [Mass ratio] 1.3 {ratio} Normal [facility] Comment on above: Performed By: #### C RP, HS TROP, CBC, MG, PT, PTT, CMP ####[address] ALP [Catalytic activity/Vol] 53 U/L Normal 34-104 [facility] Comment on above: Performed By: #### C RP, HS TROP, CBC, MG, PT, PTT, CMP ####[address] ALT [Catalytic activity/Vol] 17 U/L Normal 7-52 [facility] Comment on above: Performed By: #### C RP, HS TROP, CBC, MG, PT, PTT, CMP ####[address] Anion gap [Moles/Vol] 11.2 mmol/L Normal 6.0-15.0 [facility] Comment on above: Performed By: #### C RP, HS TROP, CBC, MG, PT, PTT, CMP ####[address] AST [Catalytic activity/Vol] 18 U/L Normal 13-39 [facility] Comment on above: Performed By: #### C RP, HS TROP, CBC, MG, PT, PTT, CMP ####[address] Bilirubin [Mass/Vol] 0.7 mg/dL Normal 0.3-1.0 [facility] Comment on above: Performed By: #### C RP, HS TROP, CBC, MG, PT, PTT, CMP ####[address] Calcium [Mass/Vol] 9.5 mg/dL Normal 8.6-10.3 [facility] Comment on above: Performed By: #### C RP, HS TROP, CBC, MG, PT, PTT, CMP ####[address] Chloride [Moles/Vol] 104 mmol/L Normal 98-107 [facility] Comment on above: Performed By: #### C RP, HS TROP, CBC, MG, PT, PTT, CMP ####[address] CO2 [Moles/Vol] 28.8 mmol/L Normal 21.0-31.0 [facility] Comment on above: Performed By: #### C RP, HS TROP, CBC, MG, PT, PTT, CMP ####[address] Creatinine [Mass/Vol] 1.86 mg/dL High 0.70-1.30 [facility] Comment on above: Performed By: #### C RP, HS TROP, CBC, MG, PT, PTT, CMP ####[address] Estimated GFR 36.131 mL/Min Normal [facility] Comment on above: Performed By: #### C RP, HS TROP, CBC, MG, PT, PTT, CMP ####[address] Globulin (S) [Mass/Vol] 2.7 g/dL Normal [facility] Comment on above: Performed By: #### C RP, HS TROP, CBC, MG, PT, PTT, CMP ####[address] Glucose [Mass/Vol] 135 mg/dL High 70-100 [facility] Comment on above: Result Comment: [place] Glucose Reference Range is dependent on time and content of last meal. Glucose of more than 200 mg/dL in a nonstressed, ambulatory subject supports the diagnosis of Diabetes Mellitus. ADA recommended reference range Performed By: #### C RP, HS TROP, CBC, MG, PT, PTT, CMP ####[address] Potassium [Moles/Vol] 4.0 mmol/L Normal 3.5-5.1 [facility] Comment on above: Performed By: #### C RP, HS TROP, CBC, MG, PT, PTT, CMP ####[address] Protein [Mass/Vol] 6.2 g/dL Low 6.4-8.9 [facility] Comment on above: Performed By: #### C RP, HS TROP, CBC, MG, PT, PTT, CMP ####[address] Sodium [Moles/Vol] 140 mmol/L Normal 136-145 [facility] Comment on above: Performed By: #### C RP, HS TROP, CBC, MG, PT, PTT, CMP ####[address] Urea nitrogen [Mass/Vol] 37 mg/dL High 7-25 [facility] Comment on above: Performed By: #### C RP, HS TROP, CBC, MG, PT, PTT, CMP ####[address] Creatinine [Mass/volume] in Serum or PlasmaOrdered By: Juli Thomas on 07-09-2024 Creatinine [Mass/Vol] Creatinine [Mass/v olume] in Serum or Plasma High 0.70-1.30 [facility] Dipstick and Microscopicon 1 09-08-2023 Appearance (U) Clear Normal Clear [facility] Comment on above: Order Comment: Name Collection Type:: Clean-Voided Midstream Performed By: #### A DDONUAPLUS ####[address] Bacteria,Urine None Seen Normal None Seen [facility] Comment on above: Order Comment: Name Collection Type:: Clean-Voided Midstream Performed By: #### A DDONUAPLUS ####[address] [place] [address] [facility] Bilirubin,Urine Negative Normal Negative [facility] Comment on above: Order Comment: Name Collection Type:: Clean-Voided Midstream Performed By: #### A DDONUAPLUS ####[address] [address] [facility] Color (U) Light-Yellow Normal Yellow [facility] Comment on above: Order Comment: Name Collection Type:: Clean-Voided Midstream Performed By: #### A DDONUAPLUS ####[address] [address] [facility] Glucose Ql (U) Normal Normal Normal [facility] Comment on above: Order Comment: Name Collection Type:: Clean-Voided Midstream Performed By: #### A DDONUAPLUS ####[address] [address] [facility] Hyaline Casts,Urine 0 [LPF] Normal 0-8 [facility] Comment on above: Order Comment: Name Collection Type:: Clean-Voided Midstream Result Comment: PERF ORMED BY:[address] [place], [place] [phone] MEDICAL DIRECTORRHONDA MCLEAN M.D. Performed By: #### A DDONUAPLUS ####[address] [address] [facility] Ketones Ql (U) Negative Normal Negative [facility] Comment on above: Order Comment: Name Collection Type:: Clean-Voided Midstream Performed By: #### A DDONUAPLUS ####[address] [address] [facility] Leukocyte esterase Test strip Ql (U) Negative Normal Negative [facility] Comment on above: Order Comment: Name Collection Type:: Clean-Voided Midstream Performed By: #### A DDONUAPLUS ####[address] [address] [facility] Nitrite,Urine Negative Normal Negative [facility] Comment on above: Order Comment: Name Collection Type:: Clean-Voided Midstream Performed By: #### A DDONUAPLUS ####[address] [address] [facility] Occult Blood,Urine Negative Normal Negative [facility] Comment on above: Order Comment: Name Collection Type:: Clean-Voided Midstream Result Comment: PERF ORMED BY:[place] [address] [address] [place], [place] [phone] MEDICAL DIRECTORRHONDA MCLEAN M.D. Performed By: #### A DDONUAPLUS ####[address] [address] [facility] pH (U) 6.5 [pH] Normal 5.0-9.0 [facility] Comment on above: Order Comment: Name Collection Type:: Clean-Voided Midstream Performed By: #### A DDONUAPLUS ####[address] [address] [facility] Protein,Urine Trace High Negative [facility] Comment on above: Order Comment: Name Collection Type:: Clean-Voided Midstream Performed By: #### A DDONUAPLUS ####[address] [address] [facility] RBC,Urine 5 [HPF] High 0-4 [facility] Comment on above: Order Comment: Name Collection Type:: Clean-Voided Midstream Performed By: #### A DDONUAPLUS ####[address] [address] [facility] Specificy [place],Urine 1.018 Normal 1.001-1.03 0 [facility] Comment on above: Order Comment: Name Collection Type:: Clean-Voided Midstream Performed By: #### A DDONUAPLUS ####[address] [address] [facility] Urobilinogen,Urine Normal Normal Normal [facility] Comment on above: Order Comment: Name Collection Type:: Clean-Voided Midstream Performed By: #### A DDONUAPLUS ####[address] [address] [facility] WBC,Urine 1 [HPF] Normal 0-4 [facility] Comment on above: Order Comment: Name Collection Type:: Clean-Voided Midstream Performed By: #### A DDONUAPLUS ####[place] [address] [place] [id number] [facility] ECG 12 lead ECGon 07-09-2024 ECG 12 lead ECG Normal [facility] Eosinophils Auto (Bld) [#/Vo l]Ordered By: Juli Thomas on 07-09-2024 Eosinophils (Bld) [#/Vol] Automated eosinophil count 0.0-0.45 [facility] Eosinophils/100 WBC Auto (Bl d)Ordered By: Juli Thomas on 07-09-2024 Eosinophils/100 WBC (Bld) Automated eosinophil % . [facility] Epithelial cells.squamous [# /area] in Urine sediment by Automated countOrdered By: Juli Thomas on 07-09-2024 Epithelial cells.squamous Auto (Urine sed) [#/Area] Epithelial cells.squamous [#/area] in Urine sediment by Automated count [facility] Erythrocyte Sedimentation Ra kimberlee 07-09-2024 ESR (Bld) [Velocity] 53 mm/h High 0 [facility] Comment on above: Result Comment: PERF ORMED BY:[address] [place], [place] [phone] MEDICAL DIRECTORMOFNAG MCLEAN M.D. Performed By: #### E SR ####[place] [address] [place] [id number] [facility] Erythrocyte distribution wid th Auto (RBC) [Ratio]Ordered By: Juli Thomas on 07-09-2024 Erythrocyte distribution width (RBC) [Ratio] Erythrocyte distribution width [Ratio] by Automated count High 12.0-14.8 [facility] Erythrocyte sedimentation ra te by Photometric methodOrdered By: Juli Thomas on 07-09-2024 ESR Photometric method (Bld) [Velocity] Erythrocyte sedimentation rate by Photometric method High 0-19 [facility] [facility] Erythrocytes [#/area] in Uri ne sediment by Automated countOrdered By: Juli Thomas on 07-09-2024 RBC Auto (Urine sed) [#/Area] Erythrocytes [#/area] in Urine sediment by Automated count High 0-4 [facility] Globulin Calc (S) [Mass/Vol] Ordered By: Juli Thomas on 07-09-2024 Globulin (S) [Mass/Vol] Serum globulin measurement by calculation (mass/volume) [facility] Glucose Glucometer (BldC) [M ass/Vol]Ordered By: Juli Thomas on 07-09-2024 Glucose [Mass/Vol] Capillary blood gluc ose measurement by glucometer (mass/volume) [facility] Comment on above: Random Glucose Refer ence Range is dependent on time and content of last meal. Glucose of more than 200 mg/dL in a nonstressed, ambulatory subject supports the diagnosis of Diabetes Mellitus. Glucose Poct Glucometerson 1 09-08-2023 Glucose [Mass/Vol] 130 mg/dL Normal [facility] Comment on above: Result Comment: [place] om Glucose Reference Range is dependent on time and content of last meal. Glucose of more than 200 mg/dL in a nonstressed, ambulatory subject supports the diagnosis of Diabetes Mellitus.PERFORMED BY:[facility] [place], [place] [phone] MEDICAL DIRECTORRHONDA MCLEAN M.D. Performed By: #### G LURAYO ####Point of Care testing, Glucose [Mass/volume] in Ser um or PlasmaOrdered By: Juli Thomas on 07-09-2024 Glucose [Mass/Vol] Glucose [Mass/volume ] in Serum or Plasma High 70-100 [facility] Comment on above: ADA recommended refe [...] [Mass/volume] in Urine by Test strip Normal [facility] Hematocrit Auto (Bld) [Volum e fraction]Ordered By: Juli Thomas on 07-09-2024 Hematocrit (Bld) [Volume fraction] Hematocrit [Volume Fraction] of Blood by Automated count 38.8-50.0 [facility] Hemoglobin Test strip Ql (U) Ordered By: Juli Thomas on 07-09-2024 Hemoglobin Ql (U) Hemoglobin [Presence ] in Urine by Test strip Negative [facility] Hemoglobin [Mass/volume] in BloodOrdered By: Juli Thomas on 07-09-2024 Hemoglobin (Bld) [Mass/Vol] Hemoglobin [Mass/volume] in Blood 13.0-17.0 [facility] Hyaline casts [#/area] in Ur ine sediment by Automated countOrdered By: Juli Thomas on 07-09-2024 Hyaline casts Auto (Urine sed) [#/Area] Hyaline casts [#/area] in Urine sediment by Automated count 0-8 [facility] INR in Platelet poor plasma by Coagulation assayOrdered By: Juli Thomas on 07-09-2024 INR Coag (PPP) [Relative time] INR in Platelet poor plasma by Coagulation assay [facility] Comment on above: INR Therapeutic Rang [...] i n Urine by Test strip Negative [facility] Leukocyte esterase [Presence ] in Urine by Test stripOrdered By: Juli Thomas on 07-09-2024 Leukocyte esterase Test strip Ql (U) Leukocyte esterase [Presence] in Urine by Test strip Negative [facility] Leukocytes [#/area] in Urine sediment by Automated countOrdered By: Juli Thomas on 07-09-2024 WBC Auto (Urine sed) [#/Area] Leukocytes [#/area] in Urine sediment by Automated count 0-4 [facility] Leukocytes [#/volume] correc blessing for nucleated erythrocytes in Blood by Automated counOrdered By: Juli Thomas on 07-09-2024 WBC corrected for nucl RBC Auto (Bld) [#/Vol] Leukocytes [#/volume] corrected for nucleated erythrocytes in Blood by Automated coun 4.1-10.5 [facility] Lymphocytes Auto (Bld) [#/Vo l]Ordered By: Juli Thomas on 07-09-2024 Lymphocytes (Bld) [#/Vol] Lymphocytes [#/volume] in Blood by Automated count Low 1.00-4.8 [facility] Lymphocytes/100 WBC Auto (Bl d)Ordered By: Juli Tohmas on 07-09-2024 Lymphocytes/100 WBC (Bld) Lymphocytes/100 leukocytes in Blood by Automated count . [facility] MCH Auto (RBC) [Entitic mass ]Ordered By: Juli Thomas on 07-09-2024 MCH (RBC) [Entitic mass] MCH [Entitic mass] by Automated count 27.5-35.2 [facility] MCHC Auto (RBC) [Mass/Vol]Or dered By: Juli Thomas on 07-09-2024 MCHC (RBC) [Mass/Vol] MCHC [Mass/volume] by Automated count 32.5-35.6 [facility] MCV Auto (RBC) [Entitic vol] Ordered By: Juli Thomas on 07-09-2024 MCV (RBC) [Entitic vol] MCV [Entitic volume] by Automated count 83.5-101 [facility] Magnesiumon 07-09-2024 Magnesium [Mass/Vol] 1.9 mg/dL Normal 1.9-2.7 [facility] Comment on above: Result Comment: PERF ORMED BY:[facility] [place], [place] [phone] MEDICAL DIRECTORRHONDA MCLEAN M.D. Performed By: #### C RP, HS TROP, CBC, MG, PT, PTT, CMP ####[facility] [place] [address] [facility] Magnesium [Mass/volume] in S [place] or PlasmaOrdered By: Juli Thomas on 07-09-2024 Magnesium [Mass/Vol] Magnesium [Mass/vol ume] in Serum or Plasma 1.9-2.7 [facility] Monocyte distribution width [Entitic volume] in Blood by AutomatedOrdered By: Juli Thomas on 07-09-2024 Monocyte distribution width Auto (Bld) [Entitic vol] Monocyte distribution width [Entitic volume] in Blood by Automated 0.00-20.00 [facility] Monocytes Auto (Bld) [#/Vol] Ordered By: Juli Thomas on 07-09-2024 Monocytes (Bld) [#/Vol] Automated blood monocyte count High 0.0-0.8 [facility] Monocytes/100 WBC Auto (Bld) Ordered By: Juli Thomas on 07-09-2024 Monocytes/100 WBC (Bld) Automated monocyte % . [facility] Neutrophils Auto (Bld) [#/Vo l]Ordered By: Juli Thomas on 07-09-2024 Neutrophils (Bld) [#/Vol] Neutrophils [#/volume] in Blood by Automated count High 1.8-7.7 [facility] Neutrophils/100 WBC Auto (Bl d)Ordered By: Juli Thomas on 07-09-2024 Neutrophils/100 WBC (Bld) Automated neutrophil % . [facility] Nitrite Test strip Ql (U)Ord ered By: Juli Thomas on 07-09-2024 Nitrite Ql (U) Nitrite [Presence] i n Urine by Test strip Negative [facility] No Panel InformationOrdered By: Juli Thomas on 07-09-2024 Estimated GFR (CKD-EPI) 36.131 mL/Min [facility] Creatinine Clearance (Chem N/A [facility] Nucleated erythrocytes [Pres ence] in Blood by Automated countOrdered By: Juli Thomas on 07-09-2024 Nucleated RBC Auto Ql (Bld) Nucleated erythrocytes [Presence] in Blood by Automated count 0-0.5 [facility] Partial Thromboplastin Timeo n 07-09-2024 aPTT Coag (Bld) [Time] 30.8 s Normal 25.1-36.5 Th [facility] Comment on above: Result Comment: A he matocrit value greater than 55% may lead to inaccurate results in coagulation testing. Patients having hematocrit values >55% require a special collection tube for coagulation studies. Please contact the laboratory at [phone] for redraw instructions.PERFORMED BY:[facility] [place] [phone] MEDICAL DIRECTORRHONDA MCLEAN M.D. Performed By: #### C RP, HS TROP, CBC, MG, PT, PTT, CMP ####[facility] [place] [address] [facility] Platelet mean volume Auto (B ld) [Entitic vol]Ordered By: Juli Thomas on 07-09-2024 Platelet mean volume (Bld) [Entitic vol] Platelet mean volume [Entitic volume] in Blood by Automated count 6.6-10.1 [facility] Platelets Auto (Bld) [#/Vol] Ordered By: Juli Thomas on 07-09-2024 Platelets (Bld) [#/Vol] Platelets [#/volume] in Blood by Automated count 150-450 [facility] Potassium [Moles/volume] in Serum or PlasmaOrdered By: Juli Thomas on 07-09-2024 Potassium [Moles/Vol] Potassium [Moles/v olume] in Serum or Plasma 3.5-5.1 [facility] Protein Test strip (U) [Mass /Vol]Ordered By: Juli Thomas on 07-09-2024 Protein (U) [Mass/Vol] Protein [Mass/vol ume] in Urine by Test strip High Negative [facility] Protein [Mass/volume] in Ser um or PlasmaOrdered By: Juli Thomas on 07-09-2024 Protein [Mass/Vol] Protein [Mass/volume ] in Serum or Plasma Low 6.4-8.9 [facility] Prothrombin Time INRon 07-09 INR Coag (PPP) [Relative time] 1.6 {INR} Normal [facility] Comment on above: [...] HS TROP, CBC, MG, PT, PTT, CMP ####[facility] [address] [place] [id number] [facility] PT Coag (PPP) [Time] 17.8 s High 9.0-12.9 [facility] Comment on above: Result Comment: A he matocrit value greater than 55% may lead to inaccurate results in coagulation testing. Patients having hematocrit values >55% require a special collection tube for coagulation studies. Please contact the laboratory at [phone] for redraw instructions. Performed By: #### C RP, HS TROP, CBC, MG, PT, PTT, CMP ####[facility] [place] [id number] [facility] Prothrombin time (PT)Ordered By: Juli Thomas on 07-09-2024 PT Coag (PPP) [Time] Prothrombin time (PT) High 9.0- 12.9 [facility] Comment on above: A hematocrit value g reater than 55% may lead to inaccurate results in coagulation testing. Patients having hematocrit values >55% require a special collection tube for coagulation studies. Please contact the laboratory at [phone] for redraw instructions. RBC Auto (Bld) [#/Vol]Ordere d By: Juli Thomas on 07-09-2024 RBC (Bld) [#/Vol] Erythrocytes [#/volu me] in Blood by Automated count 3.90-5.60 [facility] Serum or plasma albumin/glob ulin mass ratioOrdered By: Juli Thomas on 07-09-2024 Albumin/Globulin [Mass ratio] Serum or plasma albumin/globulin mass ratio [facility] Serum or plasma anion gap de terminationOrdered By: Juli Thomas on 07-09-2024 Anion gap [Moles/Vol] Serum or plasma an ion gap determination 6.0-15.0 [facility] Sodium [Moles/volume] in Ser um or PlasmaOrdered By: Juli Thomas on 07-09-2024 Sodium [Moles/Vol] Sodium [Moles/volume ] in Serum or Plasma 136-145 [facility] Specific gravity Test strip (U) [Rel density]Ordered By: Juli Thomas on 07-09-2024 Specific gravity (U) [Rel density] Specific gravity of Urine by Test strip 1.001-1.03 0 [facility] Troponin I High Sensitivityo n 07-09-2024 Troponin I High Sensitivity 10.7 pg/mL Normal 0.0-20.0 [facility] Comment on above: Result Comment: PERF ORMED BY:[facility] [place], [place] [phone] MEDICAL DIRECTORRHONDA MCLEAN M.D. Performed By: #### C RP, HS TROP, CBC, MG, PT, PTT, CMP ####[facility] [place] [address] [facility] Troponin I.cardiac [Mass/vol ume] in Serum or Plasma by Detection limit <= 0.01 ng/Ordered By: Juli Thomas on 07-09-2024 Troponin I.cardiac DL <= 0.01 ng/mL [Mass/Vol] Troponin I.cardiac [Mass/volume] in Serum or Plasma by Detection limit <= 0.01 ng/ 0.0-20.0 [facility] Urea nitrogen [Mass/volume] in Serum or PlasmaOrdered By: Juli Thomas on 07-09-2024 Urea nitrogen [Mass/Vol] Urea nitrogen [Mass/volume] in Serum or Plasma High 7-25 [facility] Urobilinogen Test strip (U) [Mass/Vol]Ordered By: Juli Thomas on 07-09-2024 Urobilinogen (U) [Mass/Vol] Urobilinogen [Mass/volume] in Urine by Test strip Normal [facility] WBC Auto (Bld) [#/Vol]Ordere d By: Juli Thomas on 07-09-2024 WBC (Bld) [#/Vol] Leukocytes [#/volume ] in Blood by Automated count 4.1-10.5 [facility] X-ray reportOrdered By: Latasha Moe on 07-09-2024 Study report [facility] [place] [address] XRay Report Signed Patient: Taurus Garcia MR#: [id number] : 1945 Acct:[id number] Age/Sex: 78 / M ADM Date: 4 Loc: ER Room: Type: [facility] ER Attending Dr: Copies to: Juli [...] Aide Moe M.D.07/09/2024 4:34 PM Dictation Location: [place] [address] Transcribed By: [facility] 07/09/24 1634 Dictated By: Aide Moe MD 07/09/24 1632 Signed By: 07/09/24 1634 [facility] Work Phone: XR chest 1V portableon 07-09 XR chest 1V portable Normal [facility] aPTT in Platelet poor plasma by Coagulation assayOrdered By: Juli Thomas on 07-09-2024 aPTT Coag (PPP) [Time] Activated partial thromboplastin time (aPTT) in platelet poor plasma by coagulation a 25.1-36.5 [facility] Comment on above: A hematocrit value g reater than 55% may lead to inaccurate results in coagulation testing. Patients having hematocrit values >55% require a special collection tube for coagulation studies. Please contact the laboratory at [phone] for redraw instructions. pH Test strip (U)Ordered By: Juli Thomas on 07-09-2024 pH (U) pH of Urine by Test strip 5.0-9.0 [facility] Basic Metabolic Panelon 06-21 Anion gap [Moles/Vol] 12.0 mmol/L Normal 6.0-15.0 [facility] Comment on above: Performed By: #### B MP ####[place] [id number] [facility] Calcium [Mass/Vol] 8.6 mg/dL Normal 8.6-10.3 [facility] Comment on above: Performed By: #### B MP ####[place] [id number] [facility] Chloride [Moles/Vol] 106 mmol/L Normal 98-107 [facility] Comment on above: Performed By: #### B MP ####[place] [id number] [facility] CO2 [Moles/Vol] 28.2 mmol/L Normal 21.0-31.0 [facility] Comment on above: Performed By: #### B MP ####[place] [id number] [facility] Creatinine [Mass/Vol] 1.07 mg/dL Normal 0.70-1.30 [facility] Comment on above: Performed By: #### B MP ####[place] [id number] [facility] Creatinine Clr Calc Pharmacy 75.58 Normal [facility] Comment on above: Result Comment: PERF ORMED BY:[address] [place], [place] [phone] MEDICAL DIRECTORIGNA CARDONA M.D. Performed By: #### B MP ####[address] [address] [facility] GFR/1.73 sq M.predicted MDRD (S/P/Bld) [Vol rate/Area] mL/min/{1.73_m2} Normal [facility] Comment on above: Performed By: #### B MP ####[address] Glucose [Mass/Vol] 96 mg/dL Normal 70-100 [facility] Comment on above: Result Comment: [place] Glucose Reference Range is dependent on time and content of last meal. Glucose of more than 200 mg/dL in a nonstressed, ambulatory subject supports the diagnosis of Diabetes Mellitus. ADA recommended reference range Performed By: #### B MP ####[address] Potassium [Moles/Vol] 3.2 mmol/L Low 3.5-5.1 [facility] Comment on above: Performed By: #### B MP ####[address] Sodium [Moles/Vol] 143 mmol/L Normal 136-145 [facility] Comment on above: Performed By: #### B MP ####[place] [id number] [facility] Urea nitrogen [Mass/Vol] 21 mg/dL Normal 7-25 [facility] Comment on above: Performed By: #### B MP ####[place] [id number] [facility] Calcium [Mass/volume] in Ser um or PlasmaOrdered By: Silvestre Grover on 07-03-2024 Calcium [Mass/Vol] Calcium [Mass/volume ] in Serum or Plasma 8.6-10.3 [facility] Carbon dioxide, total [Moles /volume] in Serum or PlasmaOrdered By: Silvestre Grover on 07-03-2024 CO2 [Moles/Vol] Carbon dioxide, tota l [Moles/volume] in Serum or Plasma 21.0-31.0 [facility] Chloride [Moles/volume] in S [place] or PlasmaOrdered By: Silvestre Grover on 07-03-2024 Chloride [Moles/Vol] Chloride [Moles/vol ume] in Serum or Plasma 98-107 [facility] Creatinine [Mass/volume] in Serum or PlasmaOrdered By: Silvestre Grover on 07-03-2024 Creatinine [Mass/Vol] Creatinine [Mass/v olume] in Serum or Plasma 0.70-1.30 [facility] Glucose [Mass/volume] in Ser um or PlasmaOrdered By: Silvestre Grover on 07-03-2024 Glucose [Mass/Vol] Glucose [Mass/volume ] in Serum or Plasma 70-100 [facility] Comment on above: ADA recommended refe rence rangeRandom Glucose Reference Range is dependent on time and content of last meal. Glucose of more than 200 mg/dL in a nonstressed, ambulatory subject supports the diagnosis of Diabetes Mellitus. No Panel InformationOrdered By: Silvestre Grover on 07-03-2024 Estimated GFR (CKD-EPI) > 60.0 mL/Min [facility] Creatinine Clearance (Chem 75.58 [facility] > 60.0 mL/Min [facility] 75.58 [facility] Potassium [Moles/volume] in Serum or PlasmaOrdered By: Silvestre Grover on 07-03-2024 Potassium [Moles/Vol] Potassium [Moles/v olume] in Serum or Plasma Low 3.5-5.1 [facility] Serum or plasma anion gap de terminationOrdered By: Silvestre Grover on 07-03-2024 Anion gap [Moles/Vol] Serum or plasma an ion gap determination 6.0-15.0 [facility] Sodium [Moles/volume] in Ser um or PlasmaOrdered By: Silvestre Grover on 07-03-2024 Sodium [Moles/Vol] Sodium [Moles/volume ] in Serum or Plasma 136-145 [facility] Urea nitrogen [Mass/volume] in Serum or PlasmaOrdered By: Silvestre Grover on 07-03-2024 Urea nitrogen [Mass/Vol] Urea nitrogen [Mass/volume] in Serum or Plasma 7-25 [facility] Basic Metabolic Panelon 06-21 Anion gap [Moles/Vol] 12.2 mmol/L Normal 6.0-15.0 e [facility] Comment on above: Performed By: #### B MP, DIFF CBC ####[facility] [address] [place] [id number] [facility] Calcium [Mass/Vol] 8.4 mg/dL Low 8.6-10.3 [facility] Comment on above: Performed By: #### B MP, DIFF CBC ####[address] [address] [place] Chloride [Moles/Vol] 106 mmol/L Normal 98-107 [facility] Comment on above: Performed By: #### B MP, DIFF CBC ####[address] [address] [facility] CO2 [Moles/Vol] 29.1 mmol/L Normal 21.0-31.0 [facility] Comment on above: Performed By: #### B MP, DIFF CBC ####[address] [address] [facility] Creatinine [Mass/Vol] 1.20 mg/dL Normal 0.70-1.30 [facility] Comment on above: Performed By: #### B MP, DIFF CBC ####[address] [address] [place] Creatinine Clr Calc Pharmacy 67.36 Normal [facility] Comment on above: Result Comment: PERF ORMED BY:[address] [place], [place] [phone] MEDICAL DIRECTORGINA CARDONA M.D. Performed By: #### B MP, DIFF CBC ####[address] [address] [place] GFR/1.73 sq M.predicted MDRD (S/P/Bld) [Vol rate/Area] mL/min/{1.73_m2} Normal [facility] Comment on above: Performed By: #### B MP, DIFF CBC ####[address] [address] [facility] Glucose [Mass/Vol] 91 mg/dL Normal 70-100 [facility] Comment on above: Result Comment: [place] om Glucose Reference Range is dependent on time and content of last meal. Glucose of more than 200 mg/dL in a nonstressed, ambulatory subject supports the diagnosis of Diabetes Mellitus. ADA recommended reference range Performed By: #### B MP, DIFF CBC ####[address] Potassium [Moles/Vol] 3.3 mmol/L Low 3.5-5.1 [facility] Comment on above: Performed By: #### B MP, DIFF CBC ####[address] Sodium [Moles/Vol] 144 mmol/L Normal 136-145 [facility] Comment on above: Performed By: #### B MP, DIFF CBC ####[address] Urea nitrogen [Mass/Vol] 22 mg/dL Normal 7-25 [facility] Comment on above: Performed By: #### B MP, DIFF CBC ####[address] Basophils Auto (Bld) [#/Vol] Ordered By: Silvestre Grover on 07-02-2024 Basophils (Bld) [#/Vol] Automated basophil count [facility] Basophils/100 WBC Auto (Bld) Ordered By: Silvestre Grover on 07-02-2024 Basophils/100 WBC (Bld) Automated basophil % [facility] Diff and CBCon 07-02-2024 Erythrocyte distribution width (RBC) [Ratio] 14.8 % Normal 12.0-14.8 [facility] Comment on above: Performed By: #### B MP, DIFF CBC ####[address] Hematocrit (Bld) [Volume fraction] 36.3 % Low 38.8-50.0 [facility] Comment on above: Performed By: #### B MP, DIFF CBC ####[address] Hemoglobin (Bld) [Mass/Vol] 12.4 g/dL Low 13.0-17.0 [facility] Comment on above: Performed By: #### B MP, DIFF CBC ####[address] Lymphocytes/100 WBC (Bld) 15 % Low 18-42 [facility] Comment on above: Performed By: #### B MP, DIFF CBC ####[place] [id number] [facility] MCH (RBC) [Entitic mass] 31.4 pg Normal 27.5-35.2 [facility] Comment on above: Performed By: #### B MP, DIFF CBC ####[place] [id number] [facility] MCV (RBC) [Entitic vol] 91.8 fL Normal 83.5-101 [facility] Comment on above: Performed By: #### B MP, DIFF CBC ####[address] Mean Corpuscular HGB Conc 34.2 g/dL Normal 32.5-35.6 [facility] Comment on above: Performed By: #### B MP, DIFF CBC ####[address] Monocytes/100 WBC (Bld) 8 % Normal 2-11 [facility] Comment on above: Performed By: #### B MP, DIFF CBC ####[place] [id number] [facility] Myelocytes 1 % High 0-0 [facility] Comment on above: Performed By: #### B MP, DIFF CBC ####[place] [id number] [facility] Platelet Estimate Normal Normal Normal [facility] Comment on above: Performed By: #### B MP, DIFF CBC ####[place] [id number] [facility] Platelet mean volume (Bld) [Entitic vol] 8.8 fL Normal 6.6-10.1 [facility] Comment on above: Performed By: #### B MP, DIFF CBC ####[place] [id number] [facility] Platelet Morphology Normal Normal Normal [facility] Comment on above: Result Comment: PERF ORMED BY:[address] [place], [place] [phone] MEDICAL DIRECTORGINA CARDONA M.D. Performed By: #### B MP, DIFF CBC ####[address] Platelets (Bld) [#/Vol] 195 10*3/uL Normal 150-450 [facility] Comment on above: Performed By: #### B MP, DIFF CBC ####[address] RBC (Bld) [#/Vol] 3.95 10*6/uL Normal 3.90-5.60 [facility] Comment on above: Performed By: #### B MP, DIFF CBC ####[address] RBC morphology finding Nom (Bld) Normal Normal Normal [facility] Comment on above: Performed By: #### B MP, DIFF CBC ####[address] Segmented neutrophils/100 WBC (Bld) 76 % High 50-70 [facility] Comment on above: Performed By: #### B MP, DIFF CBC ####[address] WBC (Bld) [#/Vol] 9.1 10*3/uL Normal 4.1-10.5 [facility] Comment on above: Performed By: #### B MP, DIFF CBC ####[address] Eosinophils Auto (Bld) [#/Vo l]Ordered By: Silvestre Grover on 07-02-2024 Eosinophils (Bld) [#/Vol] Automated eosinophil count [facility] Eosinophils/100 WBC Auto (Bl d)Ordered By: Silvestre Grover on 07-02-2024 Eosinophils/100 WBC (Bld) Automated eosinophil % [facility] Erythrocyte distribution wid th Auto (RBC) [Ratio]Ordered By: Silvestre Grover on 07-02-2024 Erythrocyte distribution width (RBC) [Ratio] Erythrocyte distribution width [Ratio] by Automated count 12.0-14.8 [facility] Erythrocyte morphology findi ng [Identifier] in BloodOrdered By: Silvestre Grover on 07-02-2024 RBC morphology finding Nom (Bld) RBC morphology Normal [facility] Hematocrit Auto (Bld) [Volum e fraction]Ordered By: Silvestre Grover on 07-02-2024 Hematocrit (Bld) [Volume fraction] Hematocrit [Volume Fraction] of Blood by Automated count Low 38.8-50.0 [facility] Hemoglobin [Mass/volume] in BloodOrdered By: Silvestre Grover on 07-02-2024 Hemoglobin (Bld) [Mass/Vol] Hemoglobin [Mass/volume] in Blood Low 13.0-17.0 [facility] Leukocytes [#/volume] correc blessing for nucleated erythrocytes in Blood by Automated counOrdered By: Silvestre Grover on 07-02-2024 WBC corrected for nucl RBC Auto (Bld) [#/Vol] Leukocytes [#/volume] corrected for nucleated erythrocytes in Blood by Automated coun 4.1-10.5 [facility] Lymphocytes Auto (Bld) [#/Vo l]Ordered By: Silvestre Grover on 07-02-2024 Lymphocytes (Bld) [#/Vol] Lymphocytes [#/volume] in Blood by Automated count [facility] Lymphocytes/100 WBC Auto (Bl d)Ordered By: Silvestre Grover on 07-02-2024 Lymphocytes/100 WBC (Bld) Lymphocytes/100 leukocytes in Blood by Automated count [facility] Lymphocytes/100 WBC Manual c nt (Bld)Ordered By: Silvestre Grover on 07-02-2024 Lymphocytes/100 WBC (Bld) Lymphocytes/100 leukocytes in Blood by Manual count Low 18-42 [facility] MCH Auto (RBC) [Entitic mass ]Ordered By: Silvestre Grover on 07-02-2024 MCH (RBC) [Entitic mass] MCH [Entitic mass] by Automated count 27.5-35.2 [facility] MCHC Auto (RBC) [Mass/Vol]Or dered By: Silvestre Grover on 07-02-2024 MCHC (RBC) [Mass/Vol] MCHC [Mass/volume] by Automated count 32.5-35.6 [facility] MCV Auto (RBC) [Entitic vol] Ordered By: Silvestre Grover on 07-02-2024 MCV (RBC) [Entitic vol] MCV [Entitic volume] by Automated count 83.5-101 [facility] Monocytes Auto (Bld) [#/Vol] Ordered By: Silvestre Grover on 07-02-2024 Monocytes (Bld) [#/Vol] Automated blood monocyte count [facility] Monocytes/100 WBC Auto (Bld) Ordered By: Silvestre Grover on 07-02-2024 Monocytes/100 WBC (Bld) Automated monocyte % [facility] Monocytes/100 WBC Manual cnt (Bld)Ordered By: Silvestre Grover on 07-02-2024 Monocytes/100 WBC (Bld) Monocytes/100 leukocytes in Blood by Manual count 2-11 [facility] Myelocytes/100 WBC Manual cn t (Bld)Ordered By: Silvestre Grover on 07-02-2024 Myelocytes/100 WBC (Bld) Myelocytes/100 leukocytes in Blood by Manual count High 0-0 [facility] Neutrophils Auto (Bld) [#/Vo l]Ordered By: Silvestre Grover on 07-02-2024 Neutrophils (Bld) [#/Vol] Neutrophils [#/volume] in Blood by Automated count [facility] Neutrophils/100 WBC Auto (Bl d)Ordered By: Silvestre Grover on 07-02-2024 Neutrophils/100 WBC (Bld) Automated neutrophil % [facility] Nucleated erythrocytes [Pres ence] in Blood by Automated countOrdered By: Silvestre Grover on 07-02-2024 Nucleated RBC Auto Ql (Bld) Nucleated erythrocytes [Presence] in Blood by Automated count [facility] Platelet adequacy [Presence] in Blood by Light microscopyOrdered By: Silvestre Grover on 07-02-2024 Platelets LM Ql (Bld) Platelet adequacy [Presence] in Blood by Light microscopy Normal [facility] Platelet mean volume Auto (B ld) [Entitic vol]Ordered By: Silvestre Grover on 07-02-2024 Platelet mean volume (Bld) [Entitic vol] Platelet mean volume [Entitic volume] in Blood by Automated count 6.6-10.1 [facility] Platelet morphology finding [Identifier] in BloodOrdered By: Silvestre Grover on 07-02-2024 Platelet morphology finding Nom (Bld) Platelet morphology finding [Identifier] in Blood Normal [facility] Platelets Auto (Bld) [#/Vol] Ordered By: Silvestre Grover on 07-02-2024 Platelets (Bld) [#/Vol] Platelets [#/volume] in Blood by Automated count 150-450 [facility] RBC Auto (Bld) [#/Vol]Ordere d By: Silvestre Grover on 07-02-2024 RBC (Bld) [#/Vol] Erythrocytes [#/volu me] in Blood by Automated count 3.90-5.60 [facility] Segmented neutrophils/100 WB C Manual cnt (Bld)Ordered By: Silvestre Grover on 07-02-2024 Segmented neutrophils/100 WBC (Bld) Manual blood segmented neutrophils/100 leukocytes High 50-70 [facility] WBC Auto (Bld) [#/Vol]Ordere d By: Silvestre Grover on 07-02-2024 WBC (Bld) [#/Vol] Leukocytes [#/volume ] in Blood by Automated count 4.1-10.5 [facility] Basic Metabolic Panelon Anion gap [Moles/Vol] 10.3 mmol/L Normal 6.0-15.0 [facility] Comment on above: Performed By: #### B MP ####[address] Calcium [Mass/Vol] 8.6 mg/dL Normal 8.6-10.3 [facility] Comment on above: Performed By: #### B MP ####[place] [id number] [facility] Chloride [Moles/Vol] 102 mmol/L Normal 98-107 [facility] Comment on above: Performed By: #### B MP ####[address] [address] [facility] CO2 [Moles/Vol] 32.9 mmol/L High 21.0-31.0 [facility] Comment on above: Performed By: #### B MP ####[place] [id number] [facility] Creatinine [Mass/Vol] 1.26 mg/dL Normal 0.70-1.30 [facility] Comment on above: Performed By: #### B MP ####[address] [address] [facility] Creatinine Clr Calc Pharmacy 64.44 Normal [facility] Comment on above: Result Comment: PERF ORMED BY:[address] [place], [place] [phone] MEDICAL HUY CARDONA M.D. Performed By: #### B MP ####[place] [id number] [facility] GFR/1.73 sq M.predicted MDRD (S/P/Bld) [Vol rate/Area] 57.657 mL/min/{1.73_m2} Normal [facility] Comment on above: Performed By: #### B MP ####[place] [id number] [facility] Glucose [Mass/Vol] 97 mg/dL Normal 70-100 [facility] Comment on above: Result Comment: [facility] Glucose Reference Range is dependent on time and content of last meal. Glucose of more than 200 mg/dL in a nonstressed, ambulatory subject supports the diagnosis of Diabetes Mellitus. ADA recommended reference range Performed By: #### B MP ####[place] [id number] [facility] Potassium [Moles/Vol] 3.2 mmol/L Low 3.5-5.1 [facility] Comment on above: Performed By: #### B MP ####[place] [id number] [facility] Sodium [Moles/Vol] 142 mmol/L Normal 136-145 [facility] Comment on above: Performed By: #### B MP ####[place] [id number] [facility] Urea nitrogen [Mass/Vol] 30 mg/dL High 7-25 [facility] Comment on above: Performed By: #### B MP ####[place] [id number] [facility] Basic Metabolic Panelon 11-0 Anion gap [Moles/Vol] Not performed Normal 6.0-15.0 [facility] Comment on above: Performed By: #### B MP ####[address] [address] [facility] Calcium [Mass/Vol] 8.9 mg/dL Normal 8.6-10.3 [facility] Comment on above: Performed By: #### B MP ####[place] [id number] [facility] Chloride [Moles/Vol] 103 mmol/L Normal 98-107 [facility] Comment on above: Performed By: #### B MP ####[place] [id number] [facility] CO2 [Moles/Vol] 28.9 mmol/L Normal 21.0-31.0 [facility] Comment on above: Performed By: #### B MP ####[place] [id number] [facility] Creatinine [Mass/Vol] 1.27 mg/dL Normal 0.70-1.30 [facility] Comment on above: Performed By: #### B MP ####[place] [id number] [place] Creatinine Clr Calc Pharmacy 63.75 Normal [facility] Comment on above: Result Comment: PERF ORMED BY:[address] [place], [place] [id number] MEDICAL DIRECTORGINA CARDONA M.D. Performed By: #### B MP ####[place] [id number] [facility] GFR/1.73 sq M.predicted MDRD (S/P/Bld) [Vol rate/Area] 57.112 mL/min/{1.73_m2} Normal [facility] Comment on above: Performed By: #### B MP ####[place] [id number] [facility] Glucose [Mass/Vol] 122 mg/dL High 70-100 The [facility] Comment on above: Result Comment: [place] Glucose Reference Range is dependent on time and content of last meal. Glucose of more than 200 mg/dL in a nonstressed, ambulatory subject supports the diagnosis of Diabetes Mellitus. ADA recommended reference range Performed By: #### B MP ####[place] [id number] [facility] Potassium Normal 3.5-5.1 [facility] Comment on above: Result Comment: Spec imen hemolyzed, redraw requested Performed By: #### B MP ####[address] Sodium [Moles/Vol] 140 mmol/L Normal 136-145 [facility] Comment on above: Performed By: #### B MP ####[address] Urea nitrogen [Mass/Vol] 38 mg/dL High 7-25 [facility] Comment on above: Performed By: #### B MP ####[address] Redraw Potassiumon 4 Potassium [Moles/Vol] 3.5 mmol/L Normal 3.5-5.1 [facility] Comment on above: Result Comment: PERF ORMED BY:[address] [place], [place] [phone] MEDICAL DIRECTORGINA CARDONA M.D. Performed By: #### R ARJUN Wong ####[place] [id number] [facility] Alanine aminotransferase [En zymatic activity/volume] in Serum or PlasmaOrdered By: Antonia Grier on 06-23-2024 ALT [Catalytic activity/Vol] Alanine aminotransferase [Enzymatic activity/volume] in Serum or Plasma [facility] Albumin [Mass/volume] in Ser um or Plasma by Bromocresol green (BCG) dye binding methoOrdered By: Antonia Grier on 06-23-2024 Albumin BCG dye [Mass/Vol] Albumin [Mass/volume] in Serum or Plasma by Bromocresol green (BCG) dye binding metho 3.5-5.7 [facility] Alkaline phosphatase [Enzyma tic activity/volume] in Serum or PlasmaOrdered By: Antonia Grier on 06-23-2024 ALP [Catalytic activity/Vol] Alkaline phosphatase [Enzymatic activity/volume] in Serum or Plasma 34-104 [facility] Aspartate aminotransferase [ Enzymatic activity/volume] in Serum or PlasmaOrdered By: Antonia Grier on 06-23-2024 AST [Catalytic activity/Vol] Aspartate aminotransferase [Enzymatic activity/volume] in Serum or Plasma 13-39 [facility] Bilirubin.total [Mass/volume ] in Serum or PlasmaOrdered By: Antonia Grier on 06-23-2024 Bilirubin [Mass/Vol] Bilirubin.total [Mass/volume] in Serum or Plasma 0.3-1.0 [facility] Complete Blood Count Auto Di ffon 06-23-2024 Basophils (Bld) [#/Vol] 0.0 10*3/uL Normal 0.0-0.2 The [facility] Comment on above: Result Comment: PERF ORMED BY:[address] [place], [place] [phone] MEDICAL DIRECTORGINA CARDONA M.D. Performed By: #### C MP, PAB, CBC ####[address] Basophils/100 WBC (Bld) 0.2 % Normal . [facility] Comment on above: Performed By: #### C MP, PAB, CBC ####[place] [id number] [facility] Eosinophils (Bld) [#/Vol] 0.0 10*3/uL Normal 0.0-0.45 [facility] Comment on above: Performed By: #### C MP, PAB, CBC ####[place] [id number] [facility] Eosinophils/100 WBC (Bld) 0.1 % Normal . [facility] Comment on above: Performed By: #### C MP, PAB, CBC ####[address] Erythrocyte distribution width (RBC) [Ratio] 14.7 % Normal 12.0-14.8 [facility] Comment on above: Performed By: #### C MP, PAB, CBC ####[address] Hematocrit (Bld) [Volume fraction] 40.9 % Normal 38.8-50.0 [facility] Comment on above: Performed By: #### C MP, PAB, CBC ####[address] Hemoglobin (Bld) [Mass/Vol] 13.6 g/dL Normal 13.0-17.0 [facility] Comment on above: Performed By: #### C MP, PAB, CBC ####[address] Lymphocytes (Bld) [#/Vol] 1.2 10*3/uL Normal 1.00-4.8 [facility] Comment on above: Performed By: #### C MP, PAB, CBC ####[address] Lymphocytes/100 WBC (Bld) 10.7 % Normal . [facility] Comment on above: Performed By: #### C MP, PAB, CBC ####[address] MCH (RBC) [Entitic mass] 30.8 pg Normal 27.5-35.2 [facility] Comment on above: Performed By: #### C MP, PAB, CBC ####[address] MCV (RBC) [Entitic vol] 92.4 fL Normal 83.5-101 [facility] Comment on above: Performed By: #### C MP, PAB, CBC ####[address] Mean Corpuscular HGB Conc 33.3 g/dL Normal 32.5-35.6 [facility] Comment on above: Performed By: #### C MP, PAB, CBC ####[address] Monocytes (Bld) [#/Vol] 1.0 10*3/uL High 0.0-0.8 [facility] Comment on above: Performed By: #### C MP, PAB, CBC ####[address] Monocytes/100 WBC (Bld) 8.7 % Normal . [facility] Comment on above: Performed By: #### C MP, PAB, CBC ####[address] Neutrophils (Bld) [#/Vol] 9.1 10*3/uL High 1.8-7.7 [facility] Comment on above: Performed By: #### C MP, PAB, CBC ####[address] Neutrophils/100 WBC (Bld) 80.3 % Normal . [facility] Comment on above: Performed By: #### C MP, PAB, CBC ####[address] NRBC% 0.1 /100{WBC} Normal 0-0.5 [facility] Comment on above: Performed By: #### C MP, PAB, CBC ####[address] Platelet mean volume (Bld) [Entitic vol] 8.6 fL Normal 6.6-10.1 [facility] Comment on above: Performed By: #### C MP, PAB, CBC ####[address] Platelets (Bld) [#/Vol] 195 10*3/uL Normal 150-450 [facility] Comment on above: Performed By: #### C MP, PAB, CBC ####[address] RBC (Bld) [#/Vol] 4.43 10*6/uL Normal 3.90-5.60 [facility] Comment on above: Performed By: #### C MP, PAB, CBC ####[place] [id number] [facility] WBC (Bld) [#/Vol] 11.3 10*3/uL High 4.1-10.5 [facility] Comment on above: Performed By: #### C MP, PAB, CBC ####[place] [id number] [facility] Comprehensive Metabolic Pane rc 06-23-2024 Albumin [Mass/Vol] 3.5 g/dL Normal 3.5-5.7 [facility] Comment on above: Performed By: #### C MP, PAB, CBC ####[place] [id number] [facility] Albumin/Globulin [Mass ratio] 1.6 {ratio} Normal [facility] Comment on above: Performed By: #### C MP, PAB, CBC ####[place] [id number] [facility] ALP [Catalytic activity/Vol] 50 U/L Normal 34-104 [facility] Comment on above: Performed By: #### C MP, PAB, CBC ####[place] [id number] [facility] ALT [Catalytic activity/Vol] 16 U/L Normal 7-52 [facility] Comment on above: Performed By: #### C MP, PAB, CBC ####[place] [id number] [facility] Anion gap [Moles/Vol] 11.3 mmol/L Normal 6.0-15.0 [facility] e [facility] Comment on above: Performed By: #### C MP, PAB, CBC ####[place] [id number] [facility] AST [Catalytic activity/Vol] 18 U/L Normal 13-39 [facility] Comment on above: Performed By: #### C MP, PAB, CBC ####[place] [id number] [facility] Bilirubin [Mass/Vol] 0.7 mg/dL Normal 0.3-1.0 [facility] Comment on above: Performed By: #### C MP, PAB, CBC ####[address] [address] [facility] Calcium [Mass/Vol] 9.1 mg/dL Normal 8.6-10.3 [facility] Comment on above: Performed By: #### C MP, PAB, CBC ####[place] [id number] [place] Chloride [Moles/Vol] 100 mmol/L Normal 98-107 [facility] Comment on above: Performed By: #### C MP, PAB, CBC ####[place] [id number] [facility] CO2 [Moles/Vol] 33.6 mmol/L High 21.0-31.0 [facility] Comment on above: Performed By: #### C MP, PAB, CBC ####[place] [id number] [facility] Creatinine [Mass/Vol] 1.62 mg/dL High 0.70-1.30 [facility] Comment on above: Performed By: #### C MP, PAB, CBC ####[place] [id number] [place] Creatinine Clr Calc Pharmacy 50.98 Normal [facility] Comment on above: Performed By: #### C MP, PAB, CBC ####[place] [id number] [place] GFR/1.73 sq M.predicted MDRD (S/P/Bld) [Vol rate/Area] 42.646 mL/min/{1.73_m2} Normal [facility] Comment on above: Performed By: #### C MP, PAB, CBC ####[place] [id number] [place] Globulin (S) [Mass/Vol] 2.2 g/dL Normal [facility] Comment on above: Performed By: #### C MP, PAB, CBC ####[place] [id number] [place] Glucose [Mass/Vol] 119 mg/dL High 70-100 [facility] Comment on above: Result Comment: [facility] Glucose Reference Range is dependent on time and content of last meal. Glucose of more than 200 mg/dL in a nonstressed, ambulatory subject supports the diagnosis of Diabetes Mellitus. ADA recommended reference range Performed By: #### C MP, PAB, CBC ####[place] [id number] [facility] Potassium [Moles/Vol] 3.9 mmol/L Normal 3.5-5.1 [facility] Comment on above: Performed By: #### C MP, PAB, CBC ####[place] [id number] [facility] Protein [Mass/Vol] 5.7 g/dL Low 6.4-8.9 [facility] Comment on above: Performed By: #### C MP, PAB, CBC ####[place] [id number] [facility] Sodium [Moles/Vol] 141 mmol/L Normal 136-145 [facility] Comment on above: Performed By: #### C MP, PAB, CBC ####[place] [id number] [facility] Urea nitrogen [Mass/Vol] 44 mg/dL High 7-25 [facility] Comment on above: Performed By: #### C SUZANNE, PAB, CBC ####[place] [id number] [facility] Globulin Calc (S) [Mass/Vol] Ordered By: Antonia Grier on 06-23-2024 Globulin (S) [Mass/Vol] Serum globulin measurement by calculation (mass/volume) [facility] Prealbuminon 06-23-2024 Prealbumin [Mass/Vol] 32.1 mg/dL Normal 17.0-34.0 [facility] Comment on above: Result Comment: PERF ORMED BY:[address] [place], [place] [phone] MEDICAL HUY CARDONA M.D. Performed By: #### C MP, PAB, CBC ####[place] [id number] [facility] Prealbumin [Mass/volume] in Serum or PlasmaOrdered By: Antonia Grier on 06-23-2024 Prealbumin [Mass/Vol] Prealbumin [Mass/v olume] in Serum or Plasma 17.0-34.0 [facility] Protein [Mass/volume] in Ser um or PlasmaOrdered By: Antonia Grier on 06-23-2024 Protein [Mass/Vol] Protein [Mass/volume ] in Serum or Plasma Low 6.4-8.9 [facility] Serum or plasma albumin/glob ulin mass ratioOrdered By: Antonia Grier on 06-23-2024 Albumin/Globulin [Mass ratio] Serum or plasma albumin/globulin mass ratio [facility] Automated basophil %Ordered By: Mateo Horne on 06-22-2024 Basophils/100 WBC (Bld) 0.1 % Normal . [facility] Comment on above: Performed By: #### M G, CBC, BMP ####[address] Automated basophil countOrde red By: Mateo Horne on 06-22-2024 Basophils (Bld) [#/Vol] 0.0 10*3/uL Normal 0.0-0.2 [facility] Comment on above: Result Comment: PERF ORMED BY:[address] [place], [place] [phone] MEDICAL DIRECTORGINA CARDONA M.D. Performed By: #### M G, CBC, BMP ####[place] [id number] [place] [id number] [facility] Automated blood monocyte cou ntOrdered By: Mateo Horne on 06-22-2024 Monocytes (Bld) [#/Vol] 1.1 10*3/uL High 0.0-0.8 [facility] Comment on above: Performed By: #### M G, CBC, BMP ####[place] [id number] Automated eosinophil %Ordere d By: Mateo Horne on 11-02-2024 Eosinophils/100 WBC (Bld) 0.2 % Normal . [facility] Comment on above: Performed By: #### M G, CBC, BMP ####[address] Automated eosinophil countOr dered By: Mateo Horne on 06-22-2024 Eosinophils (Bld) [#/Vol] 0.0 10*3/uL Normal 0.0-0.45 [facility] Comment on above: Performed By: #### M G, CBC, BMP ####[address] Automated monocyte %Ordered By: Mateo Horne on 06-22-2024 Monocytes/100 WBC (Bld) 9.8 % Normal . [facility] Comment on above: Performed By: #### M G, CBC, BMP ####[address] Automated neutrophil %Ordere d By: Mateo Horne on 06-22-2024 Neutrophils/100 WBC (Bld) 77.3 % Normal . [facility] Comment on above: Performed By: #### M G, CBC, BMP ####[address] Basic Metabolic Panelon 11 Creatinine Clr Calc Pharmacy 47.41 Normal [facility] Comment on above: Performed By: #### M G, CBC, BMP ####[address] GFR/1.73 sq M.predicted MDRD (S/P/Bld) [Vol rate/Area] 39.967 mL/min/{1.73_m2} Normal [facility] Comment on above: Performed By: #### M G, CBC, BMP ####[address] Basophils Auto (Bld) [#/Vol] Ordered By: Mateo Horne on 06-22-2024 Basophils (Bld) [#/Vol] Automated basophil count 0.0-0.2 [facility] Basophils/100 WBC Auto (Bld) Ordered By: Mateo Horne on 06-22-2024 Basophils/100 WBC (Bld) Automated basophil % . [facility] Calcium [Mass/volume] in Ser um or PlasmaOrdered By: Mateo Horne on 06-22-2024 Calcium [Mass/Vol] 8.9 mg/dL Normal 8.6-10.[address] [facility] Comment on above: Performed By: #### M G, CBC, BMP ####[facility] [id number] [place] [address] [facility] Calcium [Mass/Vol] Calcium [Mass/volume ] in Serum or Plasma 8.6-10.3 [facility] Carbon dioxide, total [Moles /volume] in Serum or PlasmaOrdered By: Mateo Horne on 06-22-2024 CO2 [Moles/Vol] 32.8 mmol/L High 21.0-31.0 [facility] Comment on above: Performed By: #### M G, CBC, BMP ####[facility] [id number] [place] [address] [facility] CO2 [Moles/Vol] Carbon dioxide, tota l [Moles/volume] in Serum or Plasma High 21.0-31.0 [facility] Chloride [Moles/volume] in [place] or PlasmaOrdered By: Mateo Horne on 06-22-2024 Chloride [Moles/Vol] 98 mmol/L Normal 98-107 [facility] Comment on above: Performed By: #### M G, CBC, BMP ####[facility] [address] [place] [address] [facility] Chloride [Moles/Vol] Chloride [Moles/vol ume] in Serum or Plasma 98-107 [facility] Complete Blood Count Auto Di ffon 06-22-2024 Mean Corpuscular HGB Conc 33.6 g/dL Normal 32.5-35.6 [facility] Comment on above: Performed By: #### M G, CBC, BMP ####[facility] [id number] NRBC% 0.1 /100{WBC} Normal 0-0.5 [facility] Comment on above: Performed By: #### M G, CBC, BMP ####[facility] Creatinine [Mass/volume] in Serum or PlasmaOrdered By: Mateo Horne on 06-22-2024 Creatinine [Mass/Vol] 1.71 mg/dL High 0.70-1.30 [facility] Comment on above: Performed By: #### M G, CBC, BMP ####[place] [address] [address] Creatinine [Mass/Vol] Creatinine [Mass/v olume] in Serum or Plasma High 0.70-1.30 [facility] Eosinophils Auto (Bld) [#/Vo l]Ordered By: Mateo Horne on 06-22-2024 Eosinophils (Bld) [#/Vol] Automated eosinophil count 0.0-0.45 [facility] Eosinophils/100 WBC Auto (Bl d)Ordered By: Mateo Horne on 06-22-2024 Eosinophils/100 WBC (Bld) Automated eosinophil % . [facility] Erythrocyte distribution wid th Auto (RBC) [Ratio]Ordered By: Mateo Horne on 06-22-2024 Erythrocyte distribution width (RBC) [Ratio] Erythrocyte distribution width [Ratio] by Automated count 12.0-14.8 [facility] Erythrocyte distribution wid th [Ratio] by Automated countOrdered By: Mateo Horne on 06-22-2024 Erythrocyte distribution width (RBC) [Ratio] 14.8 % Normal 12.0-14.8 [facility] Comment on above: Performed By: #### M G, CBC, BMP ####[place] [address] [address] Erythrocytes [#/volume] in B lood by Automated countOrdered By: Mateo Horne on 06-22-2024 RBC (Bld) [#/Vol] 4.40 10*6/uL Normal 3.90-5.60 [facility] Comment on above: Performed By: #### M G, CBC, BMP ####[facility]1111 [place] [id number] [facility] Glucose [Mass/volume] in Ser um or PlasmaOrdered By: Mateo Horne on 06-22-2024 Glucose [Mass/Vol] 116 mg/dL High 70-[address] [facility] Comment on above: ADA recommended refe rence rangeRandom Glucose Reference Range is dependent on time and content of last meal. Glucose of more than 200 mg/dL in a nonstressed, ambulatory subject supports the diagnosis of Diabetes Mellitus. Result Comment: [place] Glucose Reference Range is dependent on time and content of last meal. Glucose of more than 200 mg/dL in a nonstressed, ambulatory subject supports the diagnosis of Diabetes Mellitus. ADA recommended reference range Performed By: #### M G, CBC, BMP ####[facility]1111 [place] [id number] [facility] Glucose [Mass/Vol] Glucose [Mass/volume ] in Serum or Plasma High 70-100 [facility] Comment on above: ADA recommended refe rence rangeRandom Glucose Reference Range is dependent on time and content of last meal. Glucose of more than 200 mg/dL in a nonstressed, ambulatory subject supports the diagnosis of Diabetes Mellitus. Hematocrit Auto (Bld) [Volum e fraction]Ordered By: Mateo Horne on 06-22-2024 Hematocrit (Bld) [Volume fraction] Hematocrit [Volume Fraction] of Blood by Automated count 38.8-50.0 [facility] Hematocrit [Volume Fraction] of Blood by Automated countOrdered By: Mateo Horne on 06-22-2024 Hematocrit (Bld) [Volume fraction] 40.5 % Normal 38.8-50.0 [facility] Comment on above: Performed By: #### M G, CBC, BMP ####[facility]1111 [place] [id number] [facility] Hemoglobin [Mass/volume] in BloodOrdered By: Mateo Horne on 06-22-2024 Hemoglobin (Bld) [Mass/Vol] 13.6 g/dL Normal 13.0-17.0 [facility] Comment on above: Performed By: #### M G, CBC, BMP ####[place] [address] Hemoglobin (Bld) [Mass/Vol] Hemoglobin [Mass/volume] in Blood 13.0-17.0 [facility] Leukocytes [#/volume] correc blessing for nucleated erythrocytes in Blood by Automated counOrdered By: Mateo Horne on 06-22-2024 WBC corrected for nucl RBC Auto (Bld) [#/Vol] 11.1 10*3/uL High 4.1-10.5 [facility] WBC corrected for nucl RBC Auto (Bld) [#/Vol] Leukocytes [#/volume] corrected for nucleated erythrocytes in Blood by Automated coun High 4.1-10.5 [facility] Leukocytes [#/volume] in Blo od by Automated countOrdered By: Mateo Horne on 06-22-2024 WBC (Bld) [#/Vol] 11.1 10*3/uL High 4.1-10.5 [facility] Comment on above: Performed By: #### Marcial Young, CBC, BMP ####[address] Lymphocytes Auto (Bld) [#/Vo l]Ordered By: Mateo Horne on 06-22-2024 Lymphocytes (Bld) [#/Vol] Lymphocytes [#/volume] in Blood by Automated count 1.00-4.8 [facility] Lymphocytes [#/volume] in Bl ood by Automated countOrdered By: Mateo Horne on 06-22-2024 Lymphocytes (Bld) [#/Vol] 1.4 10*3/uL Normal 1.00-4.8 [facility] Comment on above: Performed By: #### M G, CBC, BMP ####[place] [address] Lymphocytes/100 WBC Auto (Bl d)Ordered By: Mateo Horne on 06-22-2024 Lymphocytes/100 WBC (Bld) Lymphocytes/100 leukocytes in Blood by Automated count . [facility] Lymphocytes/100 leukocytes i n Blood by Automated countOrdered By: Mateo Horne on 06-22-2024 Lymphocytes/100 WBC (Bld) 12.6 % Normal . [facility] Comment on above: Performed By: #### M G, CBC, BMP ####[facility] [id number] MCH Auto (RBC) [Entitic mass ]Ordered By: Mateo Horne on 06-22-2024 MCH (RBC) [Entitic mass] MCH [Entitic mass] by Automated count 27.5-35.2 [facility] MCH [Entitic mass] by Automa blessing countOrdered By: Mateo Horne on 06-22-2024 MCH (RBC) [Entitic mass] 30.9 pg Normal 27.5-35.2 [facility] Comment on above: Performed By: #### M G, CBC, BMP ####[address] MCHC Auto (RBC) [Mass/Vol]Or dered By: Mateo Horne on 06-22-2024 MCHC (RBC) [Mass/Vol] 33.6 g/dL 32.5-35.6 [facility] MCHC (RBC) [Mass/Vol] MCHC [Mass/volume] by Automated count 32.5-35.6 [facility] MCV Auto (RBC) [Entitic vol] Ordered By: Mateo Horne on 06-22-2024 MCV (RBC) [Entitic vol] MCV [Entitic volume] by Automated count 83.5-101 [facility] MCV [Entitic volume] by Auto mated countOrdered By: Mateo Horne on 06-22-2024 MCV (RBC) [Entitic vol] 92.0 fL Normal 83.5-101 [facility] Comment on above: Performed By: #### M G, CBC, BMP ####[facility] [id number] [place], [place] [id number] [facility] Magnesium [Mass/volume] in [place] or PlasmaOrdered By: Mateo Horne on 06-22-2024 Magnesium [Mass/Vol] 2.0 mg/dL Normal 1.9-2.7 [facility] Comment on above: Result Comment: PERF ORMED BY:[address] [place], [place] [phone] MEDICAL DIRECTORGINA CARDONA M.D. Performed By: #### M G, CBC, BMP ####[facility] Ocj[address] [place] [address] [facility] Magnesium [Mass/Vol] Magnesium [Mass/vol ume] in Serum or Plasma 1.9-2.7 [facility] Monocytes Auto (Bld) [#/Vol] Ordered By: Mateo Horne on 06-22-2024 Monocytes (Bld) [#/Vol] Automated blood monocyte count High 0.0-0.8 [facility] Monocytes/100 WBC Auto (Bld) Ordered By: Mateo Horne on 06-22-2024 Monocytes/100 WBC (Bld) Automated monocyte % . [facility] Neutrophils Auto (Bld) [#/Vo l]Ordered By: Mateo Horne on 06-22-2024 Neutrophils (Bld) [#/Vol] Neutrophils [#/volume] in Blood by Automated count High 1.8-7.7 [facility] Neutrophils [#/volume] in Bl ood by Automated countOrdered By: Mateo Horne on 06-22-2024 Neutrophils (Bld) [#/Vol] 8.6 10*3/uL High 1.8-7.7 [facility] Comment on above: Performed By: #### M G, CBC, BMP ####[facility] [id number] [place] [address] [facility] Neutrophils/100 WBC Auto (Bl d)Ordered By: Mateo Horne on 06-22-2024 Neutrophils/100 WBC (Bld) Automated neutrophil % . [facility] No Panel InformationOrdered By: Mateo Horne on 06-22-2024 Estimated GFR (CKD-EPI) 39.967 mL/Min [facility] Creatinine Clearance (Chem 47.41 [facility] 39.967 mL/Min [facility] 47.41 [facility] Nucleated erythrocytes [Pres ence] in Blood by Automated countOrdered By: Mateo Horne on 06-22-2024 Nucleated RBC Auto Ql (Bld) 0.1 /100{WBC} 0-0.5 [facility] Nucleated RBC Auto Ql (Bld) Nucleated erythrocytes [Presence] in Blood by Automated count 0-0.5 [facility] Platelet mean volume Auto (B ld) [Entitic vol]Ordered By: Mateo Horne on 06-22-2024 Platelet mean volume (Bld) [Entitic vol] Platelet mean volume [Entitic volume] in Blood by Automated count 6.6-10.1 [facility] Platelet mean volume [Entiti c volume] in Blood by Automated countOrdered By: Mateo Horne on 06-22-2024 Platelet mean volume (Bld) [Entitic vol] 8.6 fL Normal 6.6-10.1 [facility] Comment on above: Performed By: #### M G, CBC, BMP ####[facility] [id number] Platelets Auto (Bld) [#/Vol] Ordered By: Mateo Horne on 06-22-2024 Platelets (Bld) [#/Vol] Platelets [#/volume] in Blood by Automated count 150-450 [facility] Platelets [#/volume] in Bloo d by Automated countOrdered By: Mateo Horne on 06-22-2024 Platelets (Bld) [#/Vol] 187 10*3/uL Normal 150-450 [facility] Comment on above: Performed By: #### M G, CBC, BMP ####[facility] [id number] [place] [id number] [facility] Potassium [Moles/volume] in Serum or PlasmaOrdered By: Mateo Horne on 06-22-2024 Potassium [Moles/Vol] 3.2 mmol/L Low 3.5-5.1 [facility] Comment on above: Performed By: #### M Hannah, CBC, BMP ####[place] [address] [place] [id number] [facility] Potassium [Moles/Vol] Potassium [Moles/v olume] in Serum or Plasma Low 3.5-5.1 [facility] RBC Auto (Bld) [#/Vol]Ordere d By: Mateo Horne on 06-22-2024 RBC (Bld) [#/Vol] Erythrocytes [#/volu me] in Blood by Automated count 3.90-5.60 [facility] Serum or plasma anion gap de terminationOrdered By: Mateo Horne on 06-22-2024 Anion gap [Moles/Vol] 12.4 mmol/L Normal 6.0-15.0 [facility] Comment on above: Performed By: #### M Hannah, CBC, BMP ####[place] [id number] [facility] Anion gap [Moles/Vol] Serum or plasma an ion gap determination 6.0-15.0 [facility] Sodium [Moles/volume] in Ser um or PlasmaOrdered By: Mateo Horne on 06-22-2024 Sodium [Moles/Vol] 140 mmol/L Normal 136-[address] [facility] Comment on above: Performed By: #### M Hannah, CBC, BMP ####[place] [address] [place] [id number] [facility] Sodium [Moles/Vol] Sodium [Moles/volume ] in Serum or Plasma 136-145 [facility] Urea nitrogen [Mass/volume] in Serum or PlasmaOrdered By: Mateo Horne on 06-22-2024 Urea nitrogen [Mass/Vol] 45 mg/dL High 7-25 [facility] Comment on above: Performed By: #### M G, CBC, BMP ####[place] [id number] [facility] Urea nitrogen [Mass/Vol] Urea nitrogen [Mass/volume] in Serum or Plasma High 7-25 [facility] WBC Auto (Bld) [#/Vol]Ordere d By: Mateo Horne on 06-22-2024 WBC (Bld) [#/Vol] Leukocytes [#/volume ] in Blood by Automated count High 4.1-10.5 [facility] Basic Metabolic Panelon 11-0 Anion gap [Moles/Vol] 12.1 mmol/L Normal 6.0-15.0 [facility] Comment on above: Performed By: #### C BC, MG, BMP ####[place] [address] [address] Calcium [Mass/Vol] 9.2 mg/dL Normal 8.6-10.3 [facility] Comment on above: Performed By: #### C BC, MG, BMP ####[place] [address] [place] [id number] [facility] Chloride [Moles/Vol] 97 mmol/L Low 98-107 [facility] Comment on above: Performed By: #### C BC, MG, BMP ####[place] [address] [place] [address] [facility] CO2 [Moles/Vol] 34.3 mmol/L High 21.0-31.0 [facility] Comment on above: Performed By: #### C BC, MG, BMP ####[place] [address] [place] [address] [facility] Creatinine [Mass/Vol] 1.51 mg/dL High 0.70-1.30 [facility] Comment on above: Performed By: #### C BC, MG, BMP ####[place] [address] [place] [address] [place] Creatinine Clr Calc Pharmacy 53.97 Normal [facility] Comment on above: Performed By: #### C BC, MG, BMP ####[place] [address] [place] [address] [place] GFR/1.73 sq M.predicted MDRD (S/P/Bld) [Vol rate/Area] 46.401 mL/min/{1.73_m2} Normal [facility] Comment on above: Performed By: #### C BC, MG, BMP ####[place] [id number] [facility] Glucose [Mass/Vol] 133 mg/dL High 70-100 [facility] Comment on above: Result Comment: [facility] Glucose Reference Range is dependent on time and content of last meal. Glucose of more than 200 mg/dL in a nonstressed, ambulatory subject supports the diagnosis of Diabetes Mellitus. ADA recommended reference range Performed By: #### C BC, MG, BMP ####[place] [id number] [facility] Potassium [Moles/Vol] 3.4 mmol/L Low 3.5-5.1 [facility] Comment on above: Performed By: #### C BC, MG, BMP ####[address] Sodium [Moles/Vol] 140 mmol/L Normal 136-145 [facility] Comment on above: Performed By: #### C BC, MG, BMP ####[place] [id number] [facility] Urea nitrogen [Mass/Vol] 35 mg/dL High 7-25 [facility] Comment on above: Performed By: #### C BC, MG, BMP ####[place] [id number] [facility] Complete Blood Count Auto Di ffon 06-21-2024 Basophils (Bld) [#/Vol] 0.0 10*3/uL Normal 0.0-0.2 [facility] Comment on above: Result Comment: PERF ORMED BY:[address] [place], [place] [phone] MEDICAL DIRECTORGINA CARDONA M.D. Performed By: #### C BC, MG, BMP ####[place] [id number] [facility] Basophils/100 WBC (Bld) 0.2 % Normal . [facility] Comment on above: Performed By: #### C BC, MG, BMP ####[address] Eosinophils (Bld) [#/Vol] 0.0 10*3/uL Normal 0.0-0.45 [facility] Comment on above: Performed By: #### C BC, MG, BMP ####[address] Eosinophils/100 WBC (Bld) 0.0 % Normal . [facility] Comment on above: Performed By: #### C BC, MG, BMP ####[address] Erythrocyte distribution width (RBC) [Ratio] 15.0 % High 12.0-14.8 [facility] Comment on above: Performed By: #### C BC, MG, BMP ####[address] Hematocrit (Bld) [Volume fraction] 40.8 % Normal 38.8-50.0 [facility] Comment on above: Performed By: #### C BC, MG, BMP ####[address] Hemoglobin (Bld) [Mass/Vol] 13.7 g/dL Normal 13.0-17.0 [facility] Comment on above: Performed By: #### C BC, MG, BMP ####[address] Lymphocytes (Bld) [#/Vol] 1.0 10*3/uL Normal 1.00-4.8 [facility] Comment on above: Performed By: #### C BC, MG, BMP ####[address] Lymphocytes/100 WBC (Bld) 8.9 % Normal . [facility] Comment on above: Performed By: #### C BC, MG, BMP ####[address] MCH (RBC) [Entitic mass] 31.0 pg Normal 27.5-35.2 [facility] Comment on above: Performed By: #### C BC, MG, BMP ####[address] MCV (RBC) [Entitic vol] 92.0 fL Normal 83.5-101 [facility] Comment on above: Performed By: #### C BC, MG, BMP ####[address] Mean Corpuscular HGB Conc 33.7 g/dL Normal 32.5-35.6 [facility] Comment on above: Performed By: #### C BC, MG, BMP ####[address] Monocytes (Bld) [#/Vol] 1.1 10*3/uL High 0.0-0.8 [facility] Comment on above: Performed By: #### C BC, MG, BMP ####[address] Monocytes/100 WBC (Bld) 9.1 % Normal . [facility] Comment on above: Performed By: #### C BC, MG, BMP ####[address] Neutrophils (Bld) [#/Vol] 9.6 10*3/uL High 1.8-7.7 [facility] Comment on above: Performed By: #### C BC, MG, BMP ####[address] Neutrophils/100 WBC (Bld) 81.8 % Normal . [facility] Comment on above: Performed By: #### C BC, MG, BMP ####[address] NRBC% 0.1 /100{WBC} Normal 0-0.5 [facility] Comment on above: Performed By: #### C BC, MG, BMP ####[address] Platelet mean volume (Bld) [Entitic vol] 8.4 fL Normal 6.6-10.1 [facility] Comment on above: Performed By: #### C BC, MG, BMP ####[place] [address] Platelets (Bld) [#/Vol] 199 10*3/uL Normal 150-450 [facility] Comment on above: Performed By: #### C BC, MG, BMP ####[address] RBC (Bld) [#/Vol] 4.43 10*6/uL Normal 3.90-5.60 [facility] Comment on above: Performed By: #### C BC, MG, BMP ####[address] WBC (Bld) [#/Vol] 11.8 10*3/uL High 4.1-10.5 [facility] Comment on above: Performed By: #### C BC, MG, BMP ####[address] Magnesiumon 06-21-2024 Magnesium [Mass/Vol] 1.8 mg/dL Low 1.9-2.7 [facility] Comment on above: Result Comment: PERF ORMED BY:[place] [address] [address] [place], [place] [phone] MEDICAL DIRECTORGINA CARDONA M.D. Performed By: #### C BC, MG, BMP ####[address] A1C with Estimated Average G luon 06-20-2024 Glucose [Mass/Vol] 148 mg/dL Normal [facility] Comment on above: Result Comment: PERF ORMED BY:[address] [place], [place] [phone] MEDICAL DIRECTORGINA CARDONA M.D. Performed By: #### H S TROP, BMP, MG, A1C WTH eA, CBC ####[address] Basic Metabolic Panelon 10-3 Anion gap [Moles/Vol] 12.7 mmol/L Normal 6.0-15.0 Th e [facility] Comment on above: Performed By: #### H S TROP, BMP, MG, A1C WTH eA, CBC ####[address] Calcium [Mass/Vol] 9.1 mg/dL Normal 8.6-10.3 [facility] Comment on above: Performed By: #### H S TROP, BMP, MG, A1C WTH eA, CBC ####[address] Chloride [Moles/Vol] 101 mmol/L Normal 98-107 [facility] Comment on above: Performed By: #### H S TROP, BMP, MG, A1C WTH eA, CBC ####[address] CO2 [Moles/Vol] 33.0 mmol/L High 21.0-31.0 [facility] Comment on above: Performed By: #### H S TROP, BMP, MG, A1C WTH eA, CBC ####[address] Creatinine [Mass/Vol] 1.27 mg/dL Normal 0.70-1.30 [facility] Comment on above: Performed By: #### H S TROP, BMP, MG, A1C WTH eA, CBC ####[address] Creatinine Clr Calc Pharmacy 64.75 Normal [facility] Comment on above: Performed By: #### H S TROP, BMP, MG, A1C WTH eA, CBC ####[address] GFR/1.73 sq M.predicted MDRD (S/P/Bld) [Vol rate/Area] 57.112 mL/min/{1.73_m2} Normal [facility] Comment on above: Performed By: #### H S TROP, BMP, MG, A1C WTH eA, CBC ####[facility] [place] [address] [facility] Glucose [Mass/Vol] 140 mg/dL High 70-100 [facility] Comment on above: Result Comment: [facility] Glucose Reference Range is dependent on time and content of last meal. Glucose of more than 200 mg/dL in a nonstressed, ambulatory subject supports the diagnosis of Diabetes Mellitus. ADA recommended reference range Performed By: #### H S TROP, BMP, MG, A1C WTH eA, CBC ####[place] [address] [place] [address] [facility] Potassium [Moles/Vol] 3.7 mmol/L Normal 3.5-5.1 [facility] Comment on above: Performed By: #### H S TROP, BMP, MG, A1C WTH eA, CBC ####[place] [address] [place] [address] [facility] Sodium [Moles/Vol] 143 mmol/L Normal 136-145 [facility] Comment on above: Performed By: #### H S TROP, BMP, MG, A1C WTH eA, CBC ####[address] [address] [facility] Urea nitrogen [Mass/Vol] 27 mg/dL High 7-25 [facility] Comment on above: Performed By: #### H S TROP, BMP, MG, A1C WTH eA, CBC ####[place] [id number] [facility] Blood estimated average gluc ose determination by estimation from glycated hemoglobinOrdered By: Mateo Horne on 06-20-2024 Average glucose Estimated from glycated hemoglobin (Bld) [Mass/Vol] Glucose mean value [Mass/volume] in Blood Estimated from glycated hemoglobin [facility] Complete Blood Count Auto Di ffon 06-20-2024 Basophils (Bld) [#/Vol] 0.1 10*3/uL Normal 0.0-0.2 [facility] Comment on above: Result Comment: PERF ORMED BY:[address] [place], [place] [phone] MEDICAL DIRECTORGINA CARDONA M.D. Performed By: #### H S TROP, BMP, MG, A1C WTH eA, CBC ####[address] Basophils/100 WBC (Bld) 1.0 % Normal . [facility] Comment on above: Performed By: #### H S TROP, BMP, MG, A1C WTH eA, CBC ####[address] Eosinophils (Bld) [#/Vol] 0.0 10*3/uL Normal 0.0-0.45 [facility] Comment on above: Performed By: #### H S TROP, BMP, MG, A1C WTH eA, CBC ####[address] Eosinophils/100 WBC (Bld) 0.0 % Normal . [facility] Comment on above: Performed By: #### H S TROP, BMP, MG, A1C WTH eA, CBC ####[address] Erythrocyte distribution width (RBC) [Ratio] 14.7 % Normal 12.0-14.8 [facility] Comment on above: Performed By: #### H S TROP, BMP, MG, A1C WTH eA, CBC ####[address] Hematocrit (Bld) [Volume fraction] 41.6 % Normal 38.8-50.0 [facility] Comment on above: Performed By: #### H S TROP, BMP, MG, A1C WTH eA, CBC ####[address] Hemoglobin (Bld) [Mass/Vol] 13.9 g/dL Normal 13.0-17.0 [facility] Comment on above: Performed By: #### H S TROP, BMP, MG, A1C WTH eA, CBC ####[address] Lymphocytes (Bld) [#/Vol] 0.7 10*3/uL Low 1.00-4.8 [facility] Comment on above: Performed By: #### H S TROP, BMP, MG, A1C WTH eA, CBC ####[address] Lymphocytes/100 WBC (Bld) 7.1 % Normal . [facility] Comment on above: Performed By: #### H S TROP, BMP, MG, A1C WTH eA, CBC ####[address] MCH (RBC) [Entitic mass] 30.9 pg Normal 27.5-35.2 [facility] Comment on above: Performed By: #### H S TROP, BMP, MG, A1C WTH eA, CBC ####[address] MCV (RBC) [Entitic vol] 92.7 fL Normal 83.5-101 [facility] Comment on above: Performed By: #### H S TROP, BMP, MG, A1C WTH eA, CBC ####[address] Mean Corpuscular HGB Conc 33.4 g/dL Normal 32.5-35.6 [facility] Comment on above: Performed By: #### H S TROP, BMP, MG, A1C WTH eA, CBC ####[address] Monocytes (Bld) [#/Vol] 0.7 10*3/uL Normal 0.0-0.8 [facility] Comment on above: Performed By: #### H S TROP, BMP, MG, A1C WTH eA, CBC ####[address] Monocytes/100 WBC (Bld) 7.2 % Normal . [facility] Comment on above: Performed By: #### H S TROP, BMP, MG, A1C WTH eA, CBC ####[address] Neutrophils (Bld) [#/Vol] 8.0 10*3/uL High 1.8-7.7 [facility] Comment on above: Performed By: #### H S TROP, BMP, MG, A1C WTH eA, CBC ####[address] Neutrophils/100 WBC (Bld) 84.7 % Normal . [facility] Comment on above: Performed By: #### H S TROP, BMP, MG, A1C WTH eA, CBC ####[address] NRBC% 0.1 /100{WBC} Normal 0-0.5 [facility] Comment on above: Performed By: #### H S TROP, BMP, MG, A1C WTH eA, CBC ####[address] Platelet mean volume (Bld) [Entitic vol] 8.5 fL Normal 6.6-10.1 [facility] Comment on above: Performed By: #### H S TROP, BMP, MG, A1C WTH eA, CBC ####[address] Platelets (Bld) [#/Vol] 196 10*3/uL Normal 150-450 [facility] Comment on above: Performed By: #### H S TROP, BMP, MG, A1C WTH eA, CBC ####[address] RBC (Bld) [#/Vol] 4.49 10*6/uL Normal 3.90-5.60 [facility] Comment on above: Performed By: #### H S TROP, BMP, MG, A1C WTH eA, CBC ####[address] WBC (Bld) [#/Vol] 9.5 10*3/uL Normal 4.1-10.5 [facility] Comment on above: Performed By: #### H S TROP, BMP, MG, A1C WTH eA, CBC ####[address] ECG 12 lead ECGon 06-20-2024 ECG 12 lead ECG Normal [facility] ECH echo transthoracicon ECH echo transthoracic Normal Th e [facility] Glucose mean value [Mass/vol ume] in Blood Estimated from glycated hemoglobinOrdered By: Mateo Horne on 06-20-2024 Average glucose Estimated from glycated hemoglobin (Bld) [Mass/Vol] 148 mg/dL [facility] Hemoglobin A1c percentageOrd ered By: Mateo Horne on 06-20-2024 HbA1c (Bld) [Mass fraction] 6.8 % High 4.3-5.6 [facility] Comment on above: Increased risk for d iabetes: 5.7 - 6.4diabetes: >6.4glycemic control for adults with diabetes: <7.0 Result Comment: Incr eased risk for diabetes: 5.7 - 6.4 diabetes: >6.4 glycemic control for adults with diabetes: <7.0 Performed By: #### H S TROP, BMP, MG, A1C WTH eA, CBC ####[facility] [id number] [place] [id number] [facility] Hemoglobin A1c/Hemoglobin.to sherrell in BloodOrdered By: Mateo Horne on 06-20-2024 HbA1c (Bld) [Mass fraction] Hemoglobin A1c percentage High 4.3-5.[address] [facility] Comment on above: Increased risk for d iabetes: 5.7 - 6.4diabetes: >6.4glycemic control for adults with diabetes: <7.0 Magnesiumon 06-20-2024 Magnesium [Mass/Vol] 1.7 mg/dL Low 1.9-2.7 [facility] Comment on above: Result Comment: PERF ORMED BY:[place] [address] [address] [place], [place] [phone] MEDICAL DIRECTORGINA CARDONA M.D. Performed By: #### H S TROP, BMP, MG, A1C WTH eA, CBC ####[facility] [id number] [place] [id number] [facility] Troponin I High Sensitivityo n 06-20-2024 Troponin I High Sensitivity 8.2 pg/mL Normal 0.0-20.0 [facility] Comment on above: Result Comment: PERF ORMED BY:[address] [place], [place] [phone] MEDICAL DIRECTORGINA CARDONA M.D. Performed By: #### H S TROP, BMP, MG, A1C WTH eA, CBC ####[address] [place] [address] [facility] Troponin I.cardiac [Mass/vol ume] in Serum or Plasma by Detection limit <= 0.01 ng/Ordered By: Mateo Horne on 06-20-2024 Troponin I.cardiac DL <= 0.01 ng/mL [Mass/Vol] 8.2 pg/mL 0.0-20.0 [facility] Troponin I.cardiac DL <= 0.01 ng/mL [Mass/Vol] Troponin I.cardiac [Mass/volume] in Serum or Plasma by Detection limit <= 0.01 ng/ 0.0-20.0 [facility] Alanine aminotransferase [En zymatic activity/volume] in Serum or PlasmaOrdered By: Dg Jacobson on 06-19-2024 ALT [Catalytic activity/Vol] 16 U/L Normal [facility] Comment on above: Performed By: #### B AIR SAMPLER, MG, HS TROP, CBC, CMP, CK ####[address] [address] [facility] ALT [Catalytic activity/Vol] Alanine aminotransferase [Enzymatic activity/volume] in Serum or Plasma [facility] Albumin [Mass/volume] in Ser um or Plasma by Bromocresol green (BCG) dye binding methoOrdered By: Dg Jacobson on 06-19-2024 Albumin BCG dye [Mass/Vol] 3.8 g/dL 3.5-5.7 [facility] Albumin BCG dye [Mass/Vol] Albumin [Mass/volume] in Serum or Plasma by Bromocresol green (BCG) dye binding metho 3.5-5.7 [facility] Alkaline phosphatase [Enzyma tic activity/volume] in Serum or PlasmaOrdered By: Dg Jacobson on 06-19-2024 ALP [Catalytic activity/Vol] 52 U/L Normal [facility] Comment on above: Performed By: #### B AIR SAMPLER, MG, HS TROP, CBC, CMP, CK ####[place] [address] ALP [Catalytic activity/Vol] Alkaline phosphatase [Enzymatic activity/volume] in Serum or Plasma [facility] Aspartate aminotransferase [ Enzymatic activity/volume] in Serum or PlasmaOrdered By: Dg Jacobson on 06-19-2024 AST [Catalytic activity/Vol] 21 U/L Normal [facility] Comment on above: Performed By: #### B AIR SAMPLER, MG, HS TROP, CBC, CMP, CK ####[address] AST [Catalytic activity/Vol] Aspartate aminotransferase [Enzymatic activity/volume] in Serum or Plasma [facility] Automated basophil %Ordered By: Dg Jacobson on 06-19-2024 Basophils/100 WBC (Bld) 1.0 % Normal . [facility] Comment on above: Performed By: #### B AIR SAMPLER, MG, HS TROP, CBC, CMP, CK ####[address] Automated basophil countOrde red By: Dg Jacobson on 06-19-2024 Basophils (Bld) [#/Vol] 0.1 10*3/uL Normal 0.0-0.2 [facility] Comment on above: Result Comment: PERF ORMED BY:[address] [place], [place] [phone] MEDICAL DIRECTORGINA CARDONA M.D. Performed By: #### B AIR SAMPLER, MG, HS TROP, CBC, CMP, CK ####[address] Automated blood monocyte cou ntOrdered By: Dg Jacobson on 06-19-2024 Monocytes (Bld) [#/Vol] 1.0 10*3/uL High 0.0-0.8 [facility] Comment on above: Performed By: #### B AIR SAMPLER, MG, HS TROP, CBC, CMP, CK ####[address] Automated eosinophil %Ordere d By: Dg Jacobson on 06-19-2024 Eosinophils/100 WBC (Bld) 1.2 % Normal . [facility] Comment on above: Performed By: #### B AIR SAMPLER, MG, HS TROP, CBC, CMP, CK ####[address] Automated eosinophil countOr dered By: Dg Jacobson on 06-19-2024 Eosinophils (Bld) [#/Vol] 0.1 10*3/uL Normal 0.0-0.45 [facility] Comment on above: Performed By: #### B AIR SAMPLER, MG, HS TROP, CBC, CMP, CK ####[address] Automated monocyte %Ordered By: Dg Jacobson on 06-19-2024 Monocytes/100 WBC (Bld) 11.3 % Normal . [facility] Comment on above: Performed By: #### B AIR SAMPLER, MG, HS TROP, CBC, CMP, CK ####[address] Automated neutrophil %Ordere d By: Dg Jacobson on 06-19-2024 Neutrophils/100 WBC (Bld) 59.0 % Normal . [facility] Comment on above: Performed By: #### B AIR SAMPLER, MG, HS TROP, CBC, CMP, CK ####[address] BNP ser/plasOrdered By: José Manuel Jacobson on 06-19-2024 Natriuretic peptide B (Bld) [Mass/Vol] 114.0 pg/mL High 5-100 [facility] Comment on above: Result Comment: PERF ORMED BY:[address] [place], [place] [phone] MEDICAL DIRECTORGINA CARDONA M.D. Performed By: #### B AIR SAMPLER, MG, HS TROP, CBC, CMP, CK ####[address] Bilirubin.total [Mass/volume ] in Serum or PlasmaOrdered By: Dg Jacobson on 06-19-2024 Bilirubin [Mass/Vol] 0.8 mg/dL Normal 0.3-1.0 [facility] Comment on above: Performed By: #### B AIR SAMPLER, MG, HS TROP, CBC, CMP, CK ####[address] Bilirubin [Mass/Vol] Bilirubin.total [Mass/volume] in Serum or Plasma 0.3-1.0 [facility] Calcium [Mass/volume] in Ser um or PlasmaOrdered By: Dg Jacobson on 06-19-2024 Calcium [Mass/Vol] 9.0 mg/dL Normal 8.6-10.[address] [facility] Comment on above: Performed By: #### B AIR SAMPLER, MG, HS TROP, CBC, CMP, CK ####[address] Carbon dioxide, total [Moles /volume] in Serum or PlasmaOrdered By: Dg Jacobson on 06-19-2024 CO2 [Moles/Vol] 29.8 mmol/L Normal 21.0-31.0 [facility] Comment on above: Performed By: #### B AIR SAMPLER, MG, HS TROP, CBC, CMP, CK ####[address] Chloride [Moles/volume] in S [place] or PlasmaOrdered By: Dg Jacobson on 06-19-2024 Chloride [Moles/Vol] 106 mmol/L Normal 98-107 [facility] Comment on above: Performed By: #### B AIR SAMPLER, MG, HS TROP, CBC, CMP, CK ####[address] Complete Blood Count Auto Di ffon 06-19-2024 Mean Corpuscular HGB Conc 33.1 g/dL Normal 32.5-35.6 [facility] Comment on above: Performed By: #### B AIR SAMPLER, MG, HS TROP, CBC, CMP, CK ####[address] Monocytes/100 WBC (Bld) 17.50 % Normal 0.00-20.00 [facility] Comment on above: Performed By: #### B AIR SAMPLER, MG, HS TROP, CBC, CMP, CK ####[address] NRBC% 0.1 /100{WBC} Normal 0-0.5 [facility] Comment on above: Performed By: #### B AIR SAMPLER, MG, HS TROP, CBC, CMP, CK ####[address] Comprehensive Metabolic Pane rc 06-19-2024 Albumin [Mass/Vol] 3.8 g/dL Normal 3.5-5.7 [facility] Comment on above: Performed By: #### B AIR SAMPLER, MG, HS TROP, CBC, CMP, CK ####[address] Creatinine Clr Calc Pharmacy 62.88 Normal [facility] Comment on above: Result Comment: PERF ORMED BY:[address] [place], [place] [phone] MEDICAL HUY CARDONA M.D. Performed By: #### B AIR SAMPLER, MG, HS TROP, CBC, CMP, CK ####[address] GFR/1.73 sq M.predicted MDRD (S/P/Bld) [Vol rate/Area] 53.076 mL/min/{1.73_m2} Normal [facility] Comment on above: Performed By: #### B AIR SAMPLER, MG, HS TROP, CBC, CMP, CK ####[address] Creatine kinase [Enzymatic a ctivity/volume] in Serum or PlasmaOrdered By: Dg Jacobson on 06-19-2024 CK [Catalytic activity/Vol] 153 U/L Normal [facility] Comment on above: Performed By: #### B AIR SAMPLER, MG, HS TROP, CBC, CMP, CK ####[place] [address] CK [Catalytic activity/Vol] Creatine kinase [Enzymatic activity/volume] in Serum or Plasma [facility] Creatinine [Mass/volume] in Serum or PlasmaOrdered By: Dg Jacobson on 06-19-2024 Creatinine [Mass/Vol] 1.35 mg/dL High 0.70-1.30 [facility] Comment on above: Performed By: #### B AIR SAMPLER, MG, HS TROP, CBC, CMP, CK ####[place] [address] ECG 12 lead ECGon 06-19-2024 ECG 12 lead ECG Normal [facility] Erythrocyte distribution wid th [Ratio] by Automated countOrdered By: Dg Jacobson on 06-19-2024 Erythrocyte distribution width (RBC) [Ratio] 15.2 % High 12.0-14.8 [facility] Comment on above: Performed By: #### B AIR SAMPLER, MG, HS TROP, CBC, CMP, CK ####[address] Erythrocytes [#/volume] in B lood by Automated countOrdered By: Dg Jacobson on 06-19-2024 RBC (Bld) [#/Vol] 4.44 10*6/uL Normal 3.90-5.60 [facility] Comment on above: Performed By: #### B AIR SAMPLER, MG, HS TROP, CBC, CMP, CK ####[address] Globulin Calc (S) [Mass/Vol] Ordered By: Dg Jacobson on 06-19-2024 Globulin (S) [Mass/Vol] Serum globulin measurement by calculation (mass/volume) [facility] Glucose [Mass/volume] in Ser um or PlasmaOrdered By: Dg Jacobson on 06-19-2024 Glucose [Mass/Vol] 107 mg/dL High 70-[address] [facility] Comment on above: ADA recommended refe rence rangeRandom Glucose Reference Range is dependent on time and content of last meal. Glucose of more than 200 mg/dL in a nonstressed, ambulatory subject supports the diagnosis of Diabetes Mellitus. Result Comment: [place] om Glucose Reference Range is dependent on time and content of last meal. Glucose of more than 200 mg/dL in a nonstressed, ambulatory subject supports the diagnosis of Diabetes Mellitus. ADA recommended reference range Performed By: #### B AIR SAMPLER, MG, HS TROP, CBC, CMP, CK ####[place] [address] Hematocrit [Volume Fraction] of Blood by Automated countOrdered By: Dg Jacobson on 06-19-2024 Hematocrit (Bld) [Volume fraction] 41.5 % Normal 38.8-50.0 [facility] Comment on above: Performed By: #### B AIR SAMPLER, MG, HS TROP, CBC, CMP, CK ####[address] Hemoglobin [Mass/volume] in BloodOrdered By: Dg Jacobson on 06-19-2024 Hemoglobin (Bld) [Mass/Vol] 13.7 g/dL Normal 13.0-17.0 [facility] Comment on above: Performed By: #### B AIR SAMPLER, MG, HS TROP, CBC, CMP, CK ####[address] Leukocytes [#/volume] correc blessing for nucleated erythrocytes in Blood by Automated counOrdered By: Dg Jacobson on 06-19-2024 WBC corrected for nucl RBC Auto (Bld) [#/Vol] 8.7 10*3/uL 4.1-10.5 [facility] Leukocytes [#/volume] in Blo od by Automated countOrdered By: Dg Jacobson on 06-19-2024 WBC (Bld) [#/Vol] 8.7 10*3/uL Normal 4.1-10.[address] [facility] Comment on above: Performed By: #### B AIR SAMPLER, MG, HS TROP, CBC, CMP, CK ####[address] Lymphocytes [#/volume] in Bl ood by Automated countOrdered By: Dg Jacobson on 06-19-2024 Lymphocytes (Bld) [#/Vol] 2.4 10*3/uL Normal 1.00-4.8 [facility] Comment on above: Performed By: #### B AIR SAMPLER, MG, HS TROP, CBC, CMP, CK ####[address] Lymphocytes/100 leukocytes i n Blood by Automated countOrdered By: Dg Jacobson on 06-19-2024 Lymphocytes/100 WBC (Bld) 27.5 % Normal . [facility] Comment on above: Performed By: #### B AIR SAMPLER, MG, HS TROP, CBC, CMP, CK ####[address] MCH [Entitic mass] by Automa blessing countOrdered By: Dg Jacobson on 06-19-2024 MCH (RBC) [Entitic mass] 31.0 pg Normal 27.5-35.2 [facility] Comment on above: Performed By: #### B AIR SAMPLER, MG, HS TROP, CBC, CMP, CK ####[address] MCHC Auto (RBC) [Mass/Vol]Or dered By: Dg Jacobson on 06-19-2024 MCHC (RBC) [Mass/Vol] 33.1 g/dL 32.5-35.6 [facility] MCV [Entitic volume] by Auto mated countOrdered By: Dg Jacobson on 06-19-2024 MCV (RBC) [Entitic vol] 93.6 fL Normal 83.5-101 [facility] Comment on above: Performed By: #### B AIR SAMPLER, MG, HS TROP, CBC, CMP, CK ####[address] Magnesiumon 06-19-2024 Magnesium [Mass/Vol] 1.9 mg/dL Normal 1.9-2.7 [facility] Comment on above: Result Comment: PERF ORMED BY:[facility] [place], [place] [phone] MEDICAL DIRECTORGINA CARDONA M.D. Performed By: #### B AIR SAMPLER, MG, HS TROP, CBC, CMP, CK ####[facility] [place] [address] [facility] Monocyte distribution width [Entitic volume] in Blood by AutomatedOrdered By: Dg Jacobson on 06-19-2024 Monocyte distribution width Auto (Bld) [Entitic vol] 17.50 % 0.00-20.00 [facility] Monocyte distribution width Auto (Bld) [Entitic vol] Monocyte distribution width [Entitic volume] in Blood by Automated 0.00-20.00 [facility] Natriuretic peptide B [Mass/ Vol]Ordered By: Dg Jacobson on 06-19-2024 Natriuretic peptide B (Bld) [Mass/Vol] BNP ser/plas High 5-100 [facility] Neutrophils [#/volume] in Bl ood by Automated countOrdered By: Dg Jacobson on 06-19-2024 Neutrophils (Bld) [#/Vol] 5.1 10*3/uL Normal 1.8-7.7 [facility] Comment on above: Performed By: #### B AIR SAMPLER, MG, HS TROP, CBC, CMP, CK ####[place] [address] [place] [id number] [facility] No Panel InformationOrdered By: Dg Jacobson on 06-19-2024 Estimated GFR (CKD-EPI) 53.076 mL/Min [facility] Creatinine Clearance (Chem 62.88 [facility] Nucleated erythrocytes [Pres ence] in Blood by Automated countOrdered By: Dg Jacobson on 06-19-2024 Nucleated RBC Auto Ql (Bld) 0.1 /100{WBC} 0-0.5 [facility] Platelet mean volume [Entiti c volume] in Blood by Automated countOrdered By: Dg Jacobson on 06-19-2024 Platelet mean volume (Bld) [Entitic vol] 8.1 fL Normal 6.6-10.1 [facility] Comment on above: Performed By: #### B AIR SAMPLER, MG, HS TROP, CBC, CMP, CK ####[place] [id number] [facility] Platelets [#/volume] in Bloo d by Automated countOrdered By: Dg Jacobson on 06-19-2024 Platelets (Bld) [#/Vol] 200 10*3/uL Normal 150-450 [facility] Comment on above: Performed By: #### B AIR SAMPLER, MG, HS TROP, CBC, CMP, CK ####[place] [id number] [facility] Potassium [Moles/volume] in Serum or PlasmaOrdered By: Dg Jacobson on 06-19-2024 Potassium [Moles/Vol] 3.4 mmol/L Low 3.5-5.1 [facility] Comment on above: Performed By: #### B AIR SAMPLER, MG, HS TROP, CBC, CMP, CK ####[place] [id number] [facility] Protein [Mass/volume] in Ser um or PlasmaOrdered By: Dg Jacobson on 06-19-2024 Protein [Mass/Vol] 6.5 g/dL Normal 6.4-8.[address] [facility] Comment on above: Performed By: #### B AIR SAMPLER, MG, HS TROP, CBC, CMP, CK ####[place] [id number] [facility] Protein [Mass/Vol] Protein [Mass/volume ] in Serum or Plasma 6.4-8.9 [facility] Serum globulin measurement b y calculation (mass/volume)Ordered By: Dg Jacobson on 06-19-2024 Globulin (S) [Mass/Vol] 2.7 g/dL Normal [facility] Comment on above: Performed By: #### B AIR SAMPLER, MG, HS TROP, CBC, CMP, CK ####[place] [id number] [facility] Serum or plasma albumin/glob ulin mass ratioOrdered By: Dg Jacobson on 06-19-2024 Albumin/Globulin [Mass ratio] 1.4 {ratio} Normal [facility] Comment on above: Performed By: #### B AIR SAMPLER, MG, HS TROP, CBC, CMP, CK ####[place] [address] [place] [id number] [facility] Albumin/Globulin [Mass ratio] Serum or plasma albumin/globulin mass ratio [facility] Serum or plasma anion gap de terminationOrdered By: Dg Jacobson on 06-19-2024 Anion gap [Moles/Vol] 11.6 mmol/L Normal 6.0-15.0 [facility] Comment on above: Performed By: #### B AIR SAMPLER, MG, HS TROP, CBC, CMP, CK ####[place] [address] [place] [id number] [facility] Sodium [Moles/volume] in Ser um or PlasmaOrdered By: Dg Jacobson on 06-19-2024 Sodium [Moles/Vol] 144 mmol/L Normal 136-[address] [facility] Comment on above: Performed By: #### B AIR SAMPLER, MG, HS TROP, CBC, CMP, CK ####[place] [id number] [facility] Troponin I High Sensitivityo n 06-19-2024 Troponin I High Sensitivity 10.5 pg/mL Normal 0.0-20.0 [facility] Comment on above: Result Comment: PERF ORMED BY:[address] [place], [place] [phone] MEDICAL HUY CARDONA M.D. Performed By: #### B AIR SAMPLER, MG, HS TROP, CBC, CMP, CK ####[address] [address] [facility] Troponin I.cardiac [Mass/vol ume] in Serum or Plasma by Detection limit <= 0.01 ng/Ordered By: Dg Jacobson on 06-19-2024 Troponin I.cardiac DL <= 0.01 ng/mL [Mass/Vol] 10.5 pg/mL 0.0-20.0 [facility] Urea nitrogen [Mass/volume] in Serum or PlasmaOrdered By: Dg Jacobson on 06-19-2024 Urea nitrogen [Mass/Vol] 32 mg/dL High 7- [facility] Comment on above: Performed By: #### B AIR SAMPLER, MG, HS TROP, CBC, CMP, CK ####[facility] [id number] [place] [address] [facility] XR chest 1V portableon 06-19 XR chest 1V portable Normal [facility] Alanine aminotransferase [En zymatic activity/volume] in Serum or PlasmaOrdered By: Eriberto Leyva on 02-12-2024 ALT [Catalytic activity/Vol] 22 U/L 7-52 [facility] Albumin [Mass/volume] in Ser um or Plasma by Bromocresol green (BCG) dye binding methoOrdered By: Eriberto Leyva on 02-12-2024 Albumin BCG dye [Mass/Vol] 3.6 g/dL 3.5-5.7 [facility] Alkaline phosphatase [Enzyma tic activity/volume] in Serum or PlasmaOrdered By: Eriberto Leyva on 02-12-2024 ALP [Catalytic activity/Vol] 62 U/L 34-104 [facility] Aspartate aminotransferase [ Enzymatic activity/volume] in Serum or PlasmaOrdered By: Eriberto Leyva on 02-12-2024 AST [Catalytic activity/Vol] 20 U/L 13-39 [facility] Bacteria [Presence] in Urine by AutomatedOrdered By: Eriberto Leyva on 02-12-2024 Bacteria Auto Ql (U) None seen [HPF] None Seen [facility] Basophils Auto (Bld) [#/Vol] Ordered By: Eriberto Leyva on 02-12-2024 Basophils (Bld) [#/Vol] 0.1 10*3/uL 0.0-0.2 [facility] Basophils/100 WBC Auto (Bld) Ordered By: Eriberto Leyva on 02-12-2024 Basophils/100 WBC (Bld) 0.6 % . [facility] Bilirubin Test strip Ql (U)O rdered By: Eriberto Leyva on 02-12-2024 Bilirubin Ql (U) Negative Negative [facility] Bilirubin.total [Mass/volume ] in Serum or PlasmaOrdered By: Eriberto Leyva on 02-12-2024 Bilirubin [Mass/Vol] 0.8 mg/dL 0.3-1.0 [facility] Calcium [Mass/volume] in Ser um or PlasmaOrdered By: Eriberto Leyva on 02-12-2024 Calcium [Mass/Vol] 9.1 mg/dL 8.6-10.[address] [facility] Carbon dioxide, total [Moles /volume] in Serum or PlasmaOrdered By: Eriberto Leyva on 02-12-2024 CO2 [Moles/Vol] 30.7 mmol/L 21.0-31.0 [facility] Chloride [Moles/volume] in [place] or PlasmaOrdered By: Eriberto Leyva on 02-12-2024 Chloride [Moles/Vol] 113 mmol/L 98-107 [facility] Color Auto (U)Ordered By: Lydia Leyva on 02-12-2024 Color (U) Light-yellow Yellow [facility] Creatine kinase [Enzymatic a ctivity/volume] in Serum or PlasmaOrdered By: Eriberto Leyva on 02-12-2024 CK [Catalytic activity/Vol] 113 U/L 30-223 [facility] Creatinine [Mass/volume] in Serum or PlasmaOrdered By: Eriberto Leyva on 02-12-2024 Creatinine [Mass/Vol] 1.26 mg/dL 0.70-1.30 [facility] Eosinophils Auto (Bld) [#/Vo l]Ordered By: Eriberto Leyva on 02-12-2024 Eosinophils (Bld) [#/Vol] 0.0 10*3/uL 0.0-0.45 [facility] Eosinophils/100 WBC Auto (Bl d)Ordered By: Eriberto Leyva on 02-12-2024 Eosinophils/100 WBC (Bld) 0.0 % . [facility] Epithelial cells.squamous [# /area] in Urine sediment by Automated countOrdered By: Eriberto Leyva on 02-12-2024 Epithelial cells.squamous Auto (Urine sed) [#/Area] N/A [facility] Erythrocyte distribution wid th Auto (RBC) [Ratio]Ordered By: Eriberto Leyva on 02-12-2024 Erythrocyte distribution width (RBC) [Ratio] 17.0 % 12.0-14.8 [facility] Erythrocyte sedimentation ra te by Photometric methodOrdered By: Eriberto Leyva on 02-12-2024 ESR Photometric method (Bld) [Velocity] 13 mm/hr 0-19 [facility] Erythrocytes [#/area] in Uri ne sediment by Automated countOrdered By: Eriberto Leyva on 02-12-2024 RBC Auto (Urine sed) [#/Area] 10-19 [HPF] 0-4 [facility] Globulin Calc (S) [Mass/Vol] Ordered By: Eriberto Leyva on 02-12-2024 Globulin (S) [Mass/Vol] 2.4 g/dL [facility] Glucose [Mass/volume] in Ser um or PlasmaOrdered By: Eriberto Leyva on 02-12-2024 Glucose [Mass/Vol] 133 mg/dL 70-[address] [facility] Comment on above: ADA recommended refe rence rangeRandom Glucose Reference Range is dependent on time and content of last meal. Glucose of more than 200 mg/dL in a nonstressed, ambulatory subject supports the diagnosis of Diabetes Mellitus. Glucose [Mass/volume] in Uri ne by Test stripOrdered By: Eriberto Leyva on 02-12-2024 Glucose Test strip (U) [Mass/Vol] Normal mg/dL Normal [facility] Hematocrit Auto (Bld) [Volum e fraction]Ordered By: Eriberto Leyva on 02-12-2024 Hematocrit (Bld) [Volume fraction] 41.3 % 38.8-50.0 [facility] Hemoglobin Test strip Ql (U) Ordered By: Eriberto Leyva on 02-12-2024 Hemoglobin Ql (U) Trace Negative [facility] Hemoglobin [Mass/volume] in BloodOrdered By: Eriberto Leyva on 02-12-2024 Hemoglobin (Bld) [Mass/Vol] 13.7 g/dL 13.0-17.0 [facility] Hyaline casts [#/area] in Ur ine sediment by Automated countOrdered By: Eriberto Leyva on 02-12-2024 Hyaline casts Auto (Urine sed) [#/Area] None [LPF] 0-8 [facility] Ketones Test strip Ql (U)Ord ered By: Eriberto Leyva on 02-12-2024 Ketones Ql (U) Negative Negative [facility] Lactate [Moles/volume] in Se rum or PlasmaOrdered By: Eriberto Leyva on 02-12-2024 Lactate [Moles/Vol] 1.2 mmol/L 0.5-2.2 [facility] Leukocyte esterase [Presence ] in Urine by Test stripOrdered By: Eriberto Leyva on 02-12-2024 Leukocyte esterase Test strip Ql (U) Negative Negative [facility] Leukocytes [#/area] in Urine sediment by Automated countOrdered By: Eriberto Leyva on 02-12-2024 WBC Auto (Urine sed) [#/Area] 1-2 [HPF] 0-4 [facility] Leukocytes [#/volume] correc blessing for nucleated erythrocytes in Blood by Automated counOrdered By: Eriberto Leyva on 02-12-2024 WBC corrected for nucl RBC Auto (Bld) [#/Vol] 10.0 10*3/uL 4.1-10.5 [facility] Lymphocytes Auto (Bld) [#/Vo l]Ordered By: Eriberto Leyva on 02-12-2024 Lymphocytes (Bld) [#/Vol] 0.6 10*3/uL 1.00-4.8 [facility] Lymphocytes/100 WBC Auto (Bl d)Ordered By: Eriberto Leyva on 02-12-2024 Lymphocytes/100 WBC (Bld) 6.4 % . [facility] MCH Auto (RBC) [Entitic mass ]Ordered By: Eriberto Leyva on 02-12-2024 MCH (RBC) [Entitic mass] 30.0 pg 27.5-35.2 [facility] MCHC Auto (RBC) [Mass/Vol]Or dered By: Eriberto Leyva on 02-12-2024 MCHC (RBC) [Mass/Vol] 33.2 g/dL 32.5-35.6 [facility] MCV Auto (RBC) [Entitic vol] Ordered By: Eriberto Leyva on 02-12-2024 MCV (RBC) [Entitic vol] 90.2 fL 83.5-101 [facility] Monocyte distribution width [Entitic volume] in Blood by AutomatedOrdered By: Eriberto Leyva on 02-12-2024 Monocyte distribution width Auto (Bld) [Entitic vol] 20.05 % 0.00-20.00 [facility] Comment on above: For adults in ED, MD W > 20.0 may be associated with a higher risk of sepsis during the first 12 hrs of hospital admission Monocytes Auto (Bld) [#/Vol] Ordered By: Eriberto Leyva on 02-12-2024 Monocytes (Bld) [#/Vol] 0.5 10*3/uL 0.0-0.8 [facility] Monocytes/100 WBC Auto (Bld) Ordered By: Eriberto Leyva on 02-12-2024 Monocytes/100 WBC (Bld) 5.2 % . [facility] Neutrophils Auto (Bld) [#/Vo l]Ordered By: Eriberto Leyva on 02-12-2024 Neutrophils (Bld) [#/Vol] 8.8 10*3/uL 1.8-7.7 [facility] Neutrophils/100 WBC Auto (Bl d)Ordered By: Eriberto Leyva on 02-12-2024 Neutrophils/100 WBC (Bld) 87.8 % . [facility] Nitrite Test strip Ql (U)Ord ered By: Eriberto Leyva on 02-12-2024 Nitrite Ql (U) Negative Negative [facility] No Panel InformationOrdered By: Eriberto Leyva on 02-12-2024 Estimated GFR (CKD-EPI) 57.657 mL/Min [facility] Creatinine Clearance (Chem 64.79 [facility] Nucleated erythrocytes [Pres ence] in Blood by Automated countOrdered By: Eriberto Leyva on 02-12-2024 Nucleated RBC Auto Ql (Bld) 0.0 /100{WBC} 0-0.5 [facility] Platelet mean volume Auto (B ld) [Entitic vol]Ordered By: Eriberto Leyva on 02-12-2024 Platelet mean volume (Bld) [Entitic vol] 8.3 fL 6.6-10.1 [facility] Platelets Auto (Bld) [#/Vol] Ordered By: Eriberto Leyva on 02-12-2024 Platelets (Bld) [#/Vol] 155 10*3/uL 150-450 [facility] Potassium [Moles/volume] in Serum or PlasmaOrdered By: Eriberto Leyva on 02-12-2024 Potassium [Moles/Vol] 4.1 mmol/L 3.5-5.1 [facility] Protein Test strip (U) [Mass /Vol]Ordered By: Eriberto Leyva on 02-12-2024 Protein (U) [Mass/Vol] Negative Negative [facility] Protein [Mass/volume] in Ser um or PlasmaOrdered By: Eriberto Leyva on 02-12-2024 Protein [Mass/Vol] 6.0 g/dL 6.4-8.[address] [facility] RBC Auto (Bld) [#/Vol]Ordere d By: Eriberto Leyva on 02-12-2024 RBC (Bld) [#/Vol] 4.58 10*6/uL 3.90-5.60 [facility] Serum or plasma albumin/glob ulin mass ratioOrdered By: Eriberto Leyva on 02-12-2024 Albumin/Globulin [Mass ratio] 1.5 {ratio} [facility] Serum or plasma anion gap de terminationOrdered By: Eriberto Leyva on 02-12-2024 Anion gap [Moles/Vol] -1.6000 mmol/L 6.0-15.0 [facility] Sodium [Moles/volume] in Ser um or PlasmaOrdered By: Eriberto Leyva on 02-12-2024 Sodium [Moles/Vol] 138 mmol/L 136-[address] [facility] Specific gravity Test strip (U) [Rel density]Ordered By: Eriberto Leyva on 02-12-2024 Specific gravity (U) [Rel density] 1.017 1.001-1.03 0 [facility] Thyrotropin [Units/volume] i n Serum or PlasmaOrdered By: Eriberto Leyva on 02-12-2024 TSH Qn 1.22 m[IU]/L 0.45-5.33 [facility] Troponin I.cardiac [Mass/vol ume] in Serum or Plasma by Detection limit <= 0.01 ng/Ordered By: Eriberto Leyva on 02-12-2024 Troponin I.cardiac DL <= 0.01 ng/mL [Mass/Vol] 7.6 pg/mL 0.0-20.0 [facility] Urea nitrogen [Mass/volume] in Serum or PlasmaOrdered By: Eriberto Leyva on 02-12-2024 Urea nitrogen [Mass/Vol] 30 mg/dL 7-25 [facility] Urine appearanceOrdered By: Eriberto Leyva on 02-12-2024 Appearance (U) Clear Clear [facility] Urobilinogen Test strip (U) [Mass/Vol]Ordered By: Eriberto Leyva on 02-12-2024 Urobilinogen (U) [Mass/Vol] Normal mg/dL Normal [facility] WBC Auto (Bld) [#/Vol]Ordere d By: Eriberto Leyva on 02-12-2024 WBC (Bld) [#/Vol] 10.0 10*3/uL 4.1-10.5 [facility] pH Test strip (U)Ordered By: Eriberto Leyva on 02-12-2024 pH (U) 6.0 [pH] 5.0-9.0 [facility] SURGICAL PATHOLOGY REFERENCE LAB CONSULTon 2023 CASE REPORT Normal [facility] Comment on above: Order Comment: Speci men Type: FORMALIN-FIXED PARAFFIN-EMBEDDED TISSUE SPECIMEN Ordering Facility: [facility] Address: [address] [place], [place] [id number] Result Comment: Surg ical Pathology Report Case: [id number] Authorizing Provider: Ivan Barnhart MD Collected: 2023 09:46 AM Ordering Location: [facility] Received: 2023 09:46 AM [facility] Pathologist: Olivier Mina MD Specimen: SLIDE(S), 2 SLIDES [id number] Performed By: #### L [id number] #### [facility] CLIA [id number] [address] [place] [address] [place] CLINICAL HISTORY CONSULT [facility]QUESTED [facility] on [facility]: Order Comment: Speci men Type: FORMALIN-FIXED PARAFFIN-EMBEDDED TISSUE SPECIMEN Ordering Facility: [facility] Address: [address] [place] [address] [place] [address] Performed By: #### L [id number] #### [facility] CLIA [id number] [address] [place] [address] [place] DIAGNOSIS COMMENT Thank you for allowi ng me to review this bladder lesion from an 78-year-old man. 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 Normal [facility] Comment on above: Order Comment: Speci men Type: FORMALIN-FIXED PARAFFIN-EMBEDDED TISSUE SPECIMEN Ordering Facility: [facility] Address: [place] [id number] Performed By: #### L [id number] #### [facility] CLIA [id number] [address] [place] [address] [place] [facility] FINAL DIAGNOSIS Normal [facility] Comment on above: Order Comment: Speci men Type: FORMALIN-FIXED PARAFFIN-EMBEDDED TISSUE SPECIMEN Ordering Facility: [facility] Address: [facility] [place] [id number] Result Comment: [facility]; [place], [place] ([id number], 09/14/23) A. Urinary bladder, biopsy: - Benign nephrogenic adenoma. JKM 2023 Performed By: #### L [id number] #### [facility] CLIA [id number] [address] [place] [address] [place] FINAL PERFORMING LAB Normal [facility] Comment on above: Order Comment: Speci men Type: FORMALIN-FIXED PARAFFIN-EMBEDDED TISSUE SPECIMEN Ordering Facility: [facility] Address: [address] [place] [id number] Result Comment: Diag nostic interpretation performed at [facility], [address] [place] [address] CLIA# [id number] Mgmt Consultant: Jaylan Mcfadden M.D. Performed By: #### L [id number] #### [facility] CLIA [id number] [address] [place] [address] [place] ECG 12 [place] 09-20-2023 Sinus bradycardia otherwise normal ECG [facility] Work Phone: Basophils Auto (Bld) [#/Vol] Ordered By: Antonia Grier on 05-30-2023 Basophils (Bld) [#/Vol] 0.0 10*3/uL 0.0-0.2 [facility] Basophils/100 WBC Auto (Bld) Ordered By: Antonia Grier on 05-30-2023 Basophils/100 WBC (Bld) 0.2 % . [facility] Calcium [Mass/volume] in Ser um or PlasmaOrdered By: Antonia Grier on 05-30-2023 Calcium [Mass/Vol] 8.6 mg/dL 8.6-10.[address] [facility] Carbon dioxide, total [Moles /volume] in Serum or PlasmaOrdered By: Antonia Grier on 05-30-2023 CO2 [Moles/Vol] 30.6 mmol/L 21.0-31.0 [facility] Chloride [Moles/volume] in [place] or PlasmaOrdered By: Antonia Grier on 05-30-2023 Chloride [Moles/Vol] 104 mmol/L 98-107 [facility] Clostridioides difficile tox in B tcdB gene [Presence] in Stool by JAYDE with probe deteOrdered By: Silvestre Grover on 05-30-2023 C. difficile toxin B tcdB gene JAYDE+probe Ql (Stl) Negative Negative [facility] Comment on above: Testing performed by RT-PCR Creatinine [Mass/volume] in Serum or PlasmaOrdered By: Antonia Grier on 05-30-2023 Creatinine [Mass/Vol] 0.91 mg/dL 0.70-1.30 [facility] Eosinophils Auto (Bld) [#/Vo l]Ordered By: Antonia Grier on 05-30-2023 Eosinophils (Bld) [#/Vol] 0.2 10*3/uL 0.0-0.45 [facility] Eosinophils/100 WBC Auto (Bl d)Ordered By: Antonia Grier on 05-30-2023 Eosinophils/100 WBC (Bld) 3.8 % . [facility] Erythrocyte distribution wid th Auto (RBC) [Ratio]Ordered By: Antonia Grier on 05-30-2023 Erythrocyte distribution width (RBC) [Ratio] 18.1 % 12.0-14.8 [facility] Glucose [Mass/volume] in Ser um or PlasmaOrdered By: Antonia Grier on 05-30-2023 Glucose [Mass/Vol] 98 mg/dL 70-[address] [facility] Comment on above: ADA recommended refe rence rangeRandom Glucose Reference Range is dependent on time and content of last meal. Glucose of more than 200 mg/dL in a nonstressed, ambulatory subject supports the diagnosis of Diabetes Mellitus. Hematocrit Auto (Bld) [Volum e fraction]Ordered By: Antonia Grier on 05-30-2023 Hematocrit (Bld) [Volume fraction] 36.5 % 38.8-50.0 [facility] Hemoglobin [Mass/volume] in BloodOrdered By: Antonia Grier on 05-30-2023 Hemoglobin (Bld) [Mass/Vol] 12.2 g/dL 13.0-17.0 [facility] Leukocytes [#/volume] correc blessing for nucleated erythrocytes in Blood by Automated counOrdered By: Antonia Grier on 05-30-2023 WBC corrected for nucl RBC Auto (Bld) [#/Vol] 5.6 10*3/uL 4.1-10.5 [facility] Lymphocytes Auto (Bld) [#/Vo l]Ordered By: Antonia Grier on 05-30-2023 Lymphocytes (Bld) [#/Vol] 1.7 10*3/uL 1.00-4.8 [facility] Lymphocytes/100 WBC Auto (Bl d)Ordered By: Antonia Grier on 05-30-2023 Lymphocytes/100 WBC (Bld) 29.7 % . [facility] MCH Auto (RBC) [Entitic mass ]Ordered By: Antonia Grier on 05-30-2023 MCH (RBC) [Entitic mass] 28.7 pg 27.5-35.2 [facility] MCHC Auto (RBC) [Mass/Vol]Or dered By: Antonia Grier on 05-30-2023 MCHC (RBC) [Mass/Vol] 33.4 g/dL 32.5-35.6 [facility] MCV Auto (RBC) [Entitic vol] Ordered By: Antonia Grier on 05-30-2023 MCV (RBC) [Entitic vol] 85.8 fL 83.5-101 [facility] Monocytes Auto (Bld) [#/Vol] Ordered By: Antonia Grier on 05-30-2023 Monocytes (Bld) [#/Vol] 0.8 10*3/uL 0.0-0.8 [facility] Monocytes/100 WBC Auto (Bld) Ordered By: Antonia Grier on 05-30-2023 Monocytes/100 WBC (Bld) 14.8 % . [facility] Neutrophils Auto (Bld) [#/Vo l]Ordered By: Antonia Grier on 05-30-2023 Neutrophils (Bld) [#/Vol] 2.9 10*3/uL 1.8-7.7 [facility] Neutrophils/100 WBC Auto (Bl d)Ordered By: Antonia Grier on 05-30-2023 Neutrophils/100 WBC (Bld) 51.5 % . [facility] No Panel InformationOrdered By: Antonia Grier on 05-30-2023 Estimated GFR (CKD-EPI) > 60.0 mL/Min [facility] Creatinine Clearance (Chem 89.45 [facility] Nucleated erythrocytes [Pres ence] in Blood by Automated countOrdered By: Antonia Grier on 05-30-2023 Nucleated RBC Auto Ql (Bld) 0.2 /100{WBC} 0-0.5 [facility] Platelet mean volume Auto (B ld) [Entitic vol]Ordered By: Antonia Grier on 05-30-2023 Platelet mean volume (Bld) [Entitic vol] 7.9 fL 6.6-10.1 [facility] Platelets Auto (Bld) [#/Vol] Ordered By: Antonia Grier on 05-30-2023 Platelets (Bld) [#/Vol] 258 10*3/uL 150-450 [facility] Potassium [Moles/volume] in Serum or PlasmaOrdered By: Antonia Grier on 05-30-2023 Potassium [Moles/Vol] 3.6 mmol/L 3.5-5.1 [facility] RBC Auto (Bld) [#/Vol]Ordere d By: Antonia Grier on 05-30-2023 RBC (Bld) [#/Vol] 4.25 10*6/uL 3.90-5.60 [facility] Serum or plasma anion gap de terminationOrdered By: Antonia Grier on 05-30-2023 Anion gap [Moles/Vol] 9.0 mmol/L 6.0-15.0 [facility] Sodium [Moles/volume] in Ser um or PlasmaOrdered By: Antonia Grier on 05-30-2023 Sodium [Moles/Vol] 140 mmol/L 136-[address] [facility] Urea nitrogen [Mass/volume] in Serum or PlasmaOrdered By: Antonia Grier on 05-30-2023 Urea nitrogen [Mass/Vol] 19 mg/dL 7-25 [facility] WBC Auto (Bld) [#/Vol]Ordere d By: Antonia Grier on 05-30-2023 WBC (Bld) [#/Vol] 5.6 10*3/uL 4.1-10.[address] [facility] Alanine aminotransferase [En zymatic activity/volume] in Serum or PlasmaOrdered By: Silvestre Grover on 05-22-2023 ALT [Catalytic activity/Vol] 30 U/L 7-52 [facility] Albumin [Mass/volume] in Ser um or Plasma by Bromocresol green (BCG) dye binding methoOrdered By: Silvestre Grover on 05-22-2023 Albumin BCG dye [Mass/Vol] 2.5 g/dL 3.5-5.7 [facility] Alkaline phosphatase [Enzyma tic activity/volume] in Serum or PlasmaOrdered By: Silvestre Grover on 05-22-2023 ALP [Catalytic activity/Vol] 69 U/L 34-104 [facility] Aspartate aminotransferase [ Enzymatic activity/volume] in Serum or PlasmaOrdered By: Silvestre Grover on 05-22-2023 AST [Catalytic activity/Vol] 34 U/L 13-39 [facility] Bilirubin.total [Mass/volume ] in Serum or PlasmaOrdered By: Silvestre Grover on 05-22-2023 Bilirubin [Mass/Vol] 0.6 mg/dL 0.3-1.0 [facility] Globulin Calc (S) [Mass/Vol] Ordered By: Silvestre Grover on 05-22-2023 Globulin (S) [Mass/Vol] 4.7 g/dL [facility] Prealbumin [Mass/volume] in Serum or PlasmaOrdered By: Silvestre Grover on 05-22-2023 Prealbumin [Mass/Vol] 11.9 mg/dL 17.0-34.0 [facility] Protein [Mass/volume] in Ser um or PlasmaOrdered By: Silvestre Grover on 05-22-2023 Protein [Mass/Vol] 7.2 g/dL 6.4-8.[address] [facility] Serum or plasma albumin/glob ulin mass ratioOrdered By: Silvestre Grover on 05-22-2023 Albumin/Globulin [Mass ratio] 0.5 {ratio} [facility] Basophils Auto (Bld) [#/Vol] Ordered By: Donita Armstrong on 05-20-2023 Basophils (Bld) [#/Vol] 0.0 10*3/uL 0.0-0.2 [facility] Basophils/100 WBC Auto (Bld) Ordered By: Donita Patti on 05-20-2023 Basophils/100 WBC (Bld) 0.3 % . [facility] Calcium [Mass/volume] in Ser um or PlasmaOrdered By: Donita Armstrong on 05-20-2023 Calcium [Mass/Vol] 8.1 mg/dL 8.6-10.[address] [facility] Carbon dioxide, total [Moles /volume] in Serum or PlasmaOrdered By: Donita Armstrong on 05-20-2023 CO2 [Moles/Vol] 33.6 mmol/L 21.0-31.0 [facility] Chloride [Moles/volume] in [place] or PlasmaOrdered By: Donita Patti on 05-20-2023 Chloride [Moles/Vol] 107 mmol/L 98-107 [facility] Creatinine [Mass/volume] in Serum or PlasmaOrdered By: Donita Patti on 05-20-2023 Creatinine [Mass/Vol] 0.96 mg/dL 0.70-1.30 [facility] Eosinophils Auto (Bld) [#/Vo l]Ordered By: Donita Patti on 05-20-2023 Eosinophils (Bld) [#/Vol] 0.6 10*3/uL 0.0-0.45 [facility] Eosinophils/100 WBC Auto (Bl d)Ordered By: Donita Armstrong on 05-20-2023 Eosinophils/100 WBC (Bld) 10.4 % . [facility] Erythrocyte distribution wid th Auto (RBC) [Ratio]Ordered By: Donita Armstrong on 05-20-2023 Erythrocyte distribution width (RBC) [Ratio] 17.8 % 12.0-14.8 [facility] Glucose [Mass/volume] in Ser um or PlasmaOrdered By: Donita Armstrong on 05-20-2023 Glucose [Mass/Vol] 94 mg/dL 70-[address] [facility] Comment on above: ADA recommended refe rence rangeRandom Glucose Reference Range is dependent on time and content of last meal. Glucose of more than 200 mg/dL in a nonstressed, ambulatory subject supports the diagnosis of Diabetes Mellitus. Hematocrit Auto (Bld) [Volum e fraction]Ordered By: Donita Armstrong on 05-20-2023 Hematocrit (Bld) [Volume fraction] 36.9 % 38.8-50.0 [facility] Hemoglobin [Mass/volume] in BloodOrdered By: Donita Armstrong on 05-20-2023 Hemoglobin (Bld) [Mass/Vol] 12.0 g/dL 13.0-17.0 [facility] Leukocytes [#/volume] correc blessing for nucleated erythrocytes in Blood by Automated counOrdered By: Donita Armstrong on 05-20-2023 WBC corrected for nucl RBC Auto (Bld) [#/Vol] 6.0 10*3/uL 4.1-10.5 [facility] Lymphocytes Auto (Bld) [#/Vo l]Ordered By: Donita Armstrong on 05-20-2023 Lymphocytes (Bld) [#/Vol] 1.3 10*3/uL 1.00-4.8 [facility] Lymphocytes/100 WBC Auto (Bl d)Ordered By: Donita Armstrong on 05-20-2023 Lymphocytes/100 WBC (Bld) 22.4 % . [facility] MCH Auto (RBC) [Entitic mass ]Ordered By: Donita Armstrong on 05-20-2023 MCH (RBC) [Entitic mass] 27.9 pg 27.5-35.2 [facility] MCHC Auto (RBC) [Mass/Vol]Or dered By: Donita Armstrong on 05-20-2023 MCHC (RBC) [Mass/Vol] 32.6 g/dL 32.5-35.6 [facility] MCV Auto (RBC) [Entitic vol] Ordered By: Donita Armstrong on 05-20-2023 MCV (RBC) [Entitic vol] 85.6 fL 83.5-101 [facility] Monocytes Auto (Bld) [#/Vol] Ordered By: Donita Armstrong on 05-20-2023 Monocytes (Bld) [#/Vol] 0.5 10*3/uL 0.0-0.8 [facility] Monocytes/100 WBC Auto (Bld) Ordered By: Donita Armstrong on 05-20-2023 Monocytes/100 WBC (Bld) 8.4 % . [facility] Neutrophils Auto (Bld) [#/Vo l]Ordered By: Donita Armstrong on 05-20-2023 Neutrophils (Bld) [#/Vol] 3.5 10*3/uL 1.8-7.7 [facility] Neutrophils/100 WBC Auto (Bl d)Ordered By: Donita Armstrong on 05-20-2023 Neutrophils/100 WBC (Bld) 58.5 % . [facility] No Panel InformationOrdered By: Donita Armstrong on 05-20-2023 Estimated GFR (CKD-EPI) > 60.0 mL/Min [facility] Creatinine Clearance (Chem 87.95 [facility] Nucleated erythrocytes [Pres ence] in Blood by Automated countOrdered By: Donita Armstrong on 05-20-2023 Nucleated RBC Auto Ql (Bld) 0.4 /100{WBC} 0-0.5 [facility] Platelet mean volume Auto (B ld) [Entitic vol]Ordered By: Donita Armstrong on 05-20-2023 Platelet mean volume (Bld) [Entitic vol] 8.5 fL 6.6-10.1 [facility] Platelets Auto (Bld) [#/Vol] Ordered By: Donita Armstrong on 05-20-2023 Platelets (Bld) [#/Vol] 134 10*3/uL 150-450 [facility] Potassium [Moles/volume] in Serum or PlasmaOrdered By: Donita Armstrong on 05-20-2023 Potassium [Moles/Vol] 3.6 mmol/L 3.5-5.1 [facility] RBC Auto (Bld) [#/Vol]Ordere d By: Donita Armstrong on 05-20-2023 RBC (Bld) [#/Vol] 4.31 10*6/uL 3.90-5.60 [facility] Serum or plasma anion gap de terminationOrdered By: Donita Armstrong on 05-20-2023 Anion gap [Moles/Vol] 6.0 mmol/L 6.0-15.0 [facility] Sodium [Moles/volume] in Ser um or PlasmaOrdered By: Donita Armstrong on 05-20-2023 Sodium [Moles/Vol] 143 mmol/L 136-[address] [facility] Urea nitrogen [Mass/volume] in Serum or PlasmaOrdered By: Donita Armstrong on 05-20-2023 Urea nitrogen [Mass/Vol] 26 mg/dL 7-25 [facility] WBC Auto (Bld) [#/Vol]Ordere d By: Donita Armstrong on 05-20-2023 WBC (Bld) [#/Vol] 6.0 10*3/uL 4.1-10.[address] [facility] Clostridioides difficile tox in B tcdB gene [Presence] in Stool by JAYDE with probe deteOrdered By: Suraj Razo on 05-19-2023 C. difficile toxin B tcdB gene JAYDE+probe Ql (Stl) Negative Negative [facility] Comment on above: Testing performed by RT-PCR Magnesium [Mass/volume] in [place] or PlasmaOrdered By: Suraj Razo on 05-19-2023 Magnesium [Mass/Vol] 2.0 mg/dL 1.9-2.7 [facility] Glucose Glucometer (BldC) [M ass/Vol]Ordered By: Suraj Razo on 05-17-2023 Glucose [Mass/Vol] 107 mg/dL [facility] Comment on above: Random Glucose Refer ence Range is dependent on time and content of last meal. Glucose of more than 200 mg/dL in a nonstressed, ambulatory subject supports the diagnosis of Diabetes Mellitus. Automated erythrocytes count in urine sediment (number/area)Ordered By: Donita Armstrong on 05-16-2023 RBC Auto (Urine sed) [#/Area] 1-2 [HPF] 0-4 [facility] Automated leukocytes count i n urine sediment (number/area)Ordered By: Donita Armstrong on 05-16-2023 WBC Auto (Urine sed) [#/Area] 1-2 [HPF] 0-4 [facility] Automated urine sediment nabila cium oxalate crystal count by microscopy (number/high powOrdered By: Donita Armstrong on 05-16-2023 Calcium oxalate crystals LM.HPF (Urine sed) [#/Area] 1+ [HPF] [facility] Bacterial blood cultureOrder ed By: Donita Armstrong on 05-16-2023 Bacteria identified Cx Nom (Bld) NO GROWTH 5 DAYS [facility] Bacteria identified Cx Nom (Bld) Staphylococcus sp coag neg [facility] Bilirubin Test strip Ql (U)O rdered By: Donita Armstrong on 05-16-2023 Bilirubin Ql (U) Negative Negative [facility] Color Auto (U)Ordered By: Joaquin Armstrong on 05-16-2023 Color (U) Yellow Yellow [facility] Creatine kinase [Enzymatic a ctivity/volume] in Serum or PlasmaOrdered By: Jamel Packer on 05-16-2023 CK [Catalytic activity/Vol] 175 U/L 30-223 [facility] Ketones Auto test strip (U) [Mass/Vol]Ordered By: Donita Armstrong on 05-16-2023 Ketones (U) [Mass/Vol] Negative Negative [facility] - UrinalysisOrder ed By: Donita Armstrong on 05-16-2023 Hyaline casts LM Ql (Urine sed) 9-19 [LPF] 0-8 [facility] Nitrite Test strip Ql (U)Ord ered By: Donita Armstrong on 05-16-2023 Nitrite Ql (U) Negative Negative [facility] No Panel InformationOrdered By: Suraj Razo on 05-16-2023 Bedside Glucose Comment Glu2: cleaned meter [facility] No Panel InformationOrdered By: Donita Armstrong on 05-16-2023 Bacterial ID (NA Multiplex Assay) [facility] Protein Auto test strip (U) [Mass/Vol]Ordered By: Donita Armstrong on 05-16-2023 Protein (U) [Mass/Vol] 30 mg/dL Negative [facility] Specific gravity Auto test s trip (U) [Rel density]Ordered By: Donita Armstrong on 05-16-2023 Specific gravity (U) [Rel density] 1.026 1.001-1.03 0 [facility] Squamous epithelial cells de tection in urine sediment by light microscopyOrdered By: Donita Armstrong on 05-16-2023 Epithelial cells.squamous LM Ql (Urine sed) 0-1 [HPF] 0-2 [facility] Thyrotropin [Units/volume] i n Serum or PlasmaOrdered By: Donita Armstrong on 05-16-2023 TSH Qn 1.50 m[IU]/L 0.45-5.33 [facility] Troponin I.cardiac [Mass/vol ume] in Serum or Plasma by Detection limit <= 0.01 ng/Ordered By: Donita Armstrong on 05-16-2023 Troponin I.cardiac DL <= 0.01 ng/mL [Mass/Vol] 33.0 pg/mL 0.0-20.0 [facility] Urine bacteria detection by automated methodOrdered By: Donita Armstrong on 05-16-2023 Bacteria Auto Ql (U) None seen None Seen [facility] Urine clarity by refractomet ry automatedOrdered By: Donita Armstrong on 05-16-2023 Clarity Refractometry automated (U) Clear Clear [facility] Urine culture routineOrdered By: Donita Armstrong on 05-16-2023 Bacteria identified Cx Nom (U) No Growth 2 Days [facility] Urine glucose measurement by automated test strip (mass/volume)Ordered By: Donita Armstrong on 05-16-2023 Glucose Auto test strip (U) [Mass/Vol] Normal mg/dL Normal [facility] Urine hemoglobin detection b y automated test stripOrdered By: Donita Armstrong on 05-16-2023 Hemoglobin Auto test strip Ql (U) Negative Negative [facility] Urine leukocyte esterase det ection by automated test stripOrdered By: Donita Armstrong on 05-16-2023 Leukocyte esterase Auto test strip Ql (U) 1+ Negative [facility] Urobilinogen Auto test strip (U) [Mass/Vol]Ordered By: Donita Armstrong on 05-16-2023 Urobilinogen (U) [Mass/Vol] Normal mg/dL Normal [facility] Yeast detection in urine sed iment by light microscopyOrdered By: Donita Armstrong on 05-16-2023 Yeast LM Ql (Urine sed) None seen [HPF] None Seen [facility] pH Auto test strip (U)Ordere d By: Donita Armstrong on 05-16-2023 pH (U) 5.5 [pH] 5.0-9.0 [facility] Laboratory - Chemistry and C hemistry - challengeOrdered By: Eliezer Newell on 05-15-2023 CO2 [Moles/Vol] 36.3 mmol/L 23.0-27.0 [facility] HCO3 (Bld) [Moles/Vol] 34.8 mmol/L 23.0-29.0 [facility] No Panel InformationOrdered By: Eliezer Newell on 05-15-2023 Arterial Blood Base Excess 9.2 mmol/L -3.0-3.0 [facility] Arterial Blood Oxygen Content 7.9 mmol/L 6.6-9.7 [facility] Arterial Blood Oxygen Saturation 92.2 % 95.0-100.0 [facility] Arterial Blood Partial Pressure CO2 50.8 mm[Hg] 35.0-45.0 [facility] Arterial Blood Partial Pressure O2 60.0 mm[Hg] 80.0-100.0 [facility] Arterial Blood pH 7.45 7.35-7.45 [facility] Blood Gas Critical Value See comment [facility] Comment on above: Critical Value humphries d on: 05/15/2023 at 05:57 Blood Gas PEEP 5 cmH2O [facility] Blood Gas Sample Site Right radial F [facility] Blood Gas Set Respiration Rate 10 [facility] Blood Gas Tidal Volume 500 [facility] Ventilator Mode Ac [facility] FiO2 35 % [facility] Triglyceride [Mass/volume] i n Serum or PlasmaOrdered By: Lexy Chappell on 05-15-2023 Triglyceride [Mass/Vol] 224 mg/dL 35-149 [facility] Comment on above: TRIG ATP III CLASSIF ICATIONTRIG less than 150 mg/dL NormalTRIG 150-199 mg/dL Borderline highTRIG 200-500 mg/dL High TRIG greater than 500 mg/dL Very highStandard traceable to the Center for Disease Conrtrol and Prevention (CDC) test method. No Panel InformationOrdered By: Eliezer Newell on 05-13-2023 Arterial Blood pCO2 (Temp correct) 53.2 mm[Hg] 35.0-45.0 [facility] Arterial Blood pH (Temp corrected) 7.36 7.35-7.45 [facility] Arterial Blood pO2 (Temp corrected) 77.8 mm[Hg] 80.0-100.0 [facility] Aerobic cultureOrdered By: Valdemar Armstrong on 05-12-2023 Bacteria identified Aer cx Nom (Unsp spec) 2 Days [facility] Basophils/100 WBC Manual cnt (Bld)Ordered By: Stanley Burt on 05-12-2023 Basophils/100 WBC (Bld) 0 % 0-2 [facility] Eosinophils/100 WBC Manual c nt (Bld)Ordered By: Stanley Burt on 05-12-2023 Eosinophils/100 WBC (Bld) 6 % 1-3 [facility] Gram stain for investigation of transfusion reactionOrdered By: Dointa Armstrong on 05-12-2023 Microscopic observation Gram stain Nom (Unsp spec) [facility] Haptoglobin [Mass/volume] in Serum or PlasmaOrdered By: Stanley Burt on 05-12-2023 Haptoglobin [Mass/Vol] 93 mg/dL 44-215 [facility] Comment on above: Hemolysis is present at a level that could interfere with the result. Lymphocytes/100 WBC Manual c nt (Bld)Ordered By: Stanley Burt on 05-12-2023 Lymphocytes/100 WBC (Bld) 5 % 18-42 [facility] Monocytes/100 WBC Manual cnt (Bld)Ordered By: Stanley Burt on 05-12-2023 Monocytes/100 WBC (Bld) 1 % 2-11 [facility] No Panel InformationOrdered By: Stanley Burt on 05-12-2023 Slides for Pathologist Review Ordered path review [facility] Platelet adequacy [Presence] in Blood by Light microscopyOrdered By: Stanley Burt on 05-12-2023 Platelets LM Ql (Bld) Decreased Normal Fir [facility] Platelet morphology finding [Identifier] in BloodOrdered By: Stanley Burt on 05-12-2023 Platelet morphology finding Nom (Bld) Normal Normal [facility] Polychromasia [Presence] in Blood by Light microscopyOrdered By: Stanley Burt on 05-12-2023 Polychromasia LM Ql (Bld) Slight [facility] RBC morphologyOrdered By: Farhan Burt on 05-12-2023 RBC morphology finding Nom (Bld) N/A [facility] Segmented neutrophils/100 WB C Manual cnt (Bld)Ordered By: Stanley Burt on 05-12-2023 Segmented neutrophils/100 WBC (Bld) 88 % 50-70 [facility] Teardrop cell detectionOrder ed By: Stanley Butr on 05-12-2023 Dacrocytes LM Ql (Bld) Slight [facility] Alanine aminotransferase [En zymatic activity/volume] in Serum or PlasmaOrdered By: Jarret Garza on 05-11-2023 ALT [Catalytic activity/Vol] 23 U/L 7-52 [facility] Albumin [Mass/volume] in Ser um or Plasma by Bromocresol green (BCG) dye binding methoOrdered By: Jarret Garza on 05-11-2023 Albumin BCG dye [Mass/Vol] 3.1 g/dL 3.5-5.7 [facility] Alkaline phosphatase [Enzyma tic activity/volume] in Serum or PlasmaOrdered By: Jarret Garza on 05-11-2023 ALP [Catalytic activity/Vol] 55 U/L 34-104 [facility] Aspartate aminotransferase [ Enzymatic activity/volume] in Serum or PlasmaOrdered By: Jarret Garza on 05-11-2023 AST [Catalytic activity/Vol] 28 U/L 13-39 [facility] Bilirubin.total [Mass/volume ] in Serum or PlasmaOrdered By: Jarret Garza on 05-11-2023 Bilirubin [Mass/Vol] 0.9 mg/dL 0.3-1.0 [facility] Globulin Calc (S) [Mass/Vol] Ordered By: Jarret Garza on 05-11-2023 Globulin (S) [Mass/Vol] 2.7 g/dL [facility] INR in Platelet poor plasma by Coagulation assayOrdered By: Jarret Garza on 05-11-2023 INR Coag (PPP) [Relative time] 1.4 {INR} [facility] Comment on above: INR Therapeutic Rang [...] on 05-11-2023 Phosphate [Mass/Vol] 2.7 mg/dL 3.7-7.2 [facility] Protein [Mass/volume] in Ser um or PlasmaOrdered By: Jarret Garza on 05-11-2023 Protein [Mass/Vol] 5.8 g/dL 6.4-8.[address] [facility] Prothrombin time (PT)Ordered By: Jarrte Garza on 05-11-2023 PT Coag (PPP) [Time] 17.1 s 9.0-12.9 [facility] Comment on above: A hematocrit value g reater than 55% may lead to inaccurate results in coagulation testing. Patients having hematocrit values >55% require a special collection tube for coagulation studies. Please contact the laboratory at [phone] for redraw instructions. Serum or plasma albumin/glob ulin mass ratioOrdered By: Jarret Garza on 05-11-2023 Albumin/Globulin [Mass ratio] 1.1 {ratio} [facility] Basic Metabolic Panelon - Anion gap [Moles/Vol] 15 mmol/L 9 - 17 mmol/L [facility] Calcium [Mass/Vol] 8.3 mg/dL Low 8.6 - 10. 4 mg/dL [facility] Chloride [Moles/Vol] 102 mmol/L 98 - 10 7 mmol/L [facility] CO2 [Moles/Vol] 23 mmol/L 20 - 31 mmol/L [facility] Creatinine [Mass/Vol] 1.17 mg/dL 0.70 - 1.20 mg/dL [facility] GFR/1.73 sq M.predicted MDRD (S/P/Bld) [Vol rate/Area] - PINF [facility] Comment on above: These results [...] [Mass/Vol] 91 mg/dL 70 - 99 mg/dL [facility] Interpretation and review of laboratory results Abnormal [facility] Potassium [Moles/Vol] 3.2 mmol/L Low 3.7 - 5.3 mmol/L [facility] Sodium [Moles/Vol] 140 mmol/L 135 - 144 mmol/L [facility] Urea nitrogen [Mass/Vol] 17 mg/dL 8 - 23 mg/dL [facility] Basic Metabolic Profon 10-18 Anion gap [Moles/Vol] 15 mmol/L Normal 9-17 [facility] Comment on above: Performed By: #### M G, CBC, BMP #### [facility] [employer] [address] [place] [address] Blending Line Attendant: Wenceslao Rose MD Calcium [Mass/Vol] 8.3 mg/dL Low 8.6-10.4 [facility] Comment on above: Performed By: #### M G, CBC, BMP #### [facility] [address] [place] [phone] Blending Line Attendant: Wenceslao Roes MD Chloride [Moles/Vol] 102 mmol/L Normal 98-107 [facility] Comment on above: Performed By: #### M G, CBC, BMP #### [facility] [address] [place] [phone] Blending Line Attendant: Wenceslao Rose MD CO2 [Moles/Vol] 23 mmol/L Normal 20-31 [facility] Comment on above: Performed By: #### M G, CBC, BMP #### [facility] [address] [place] [address] Blending Line Attendant: Wenceslao Rose MD Creatinine [Mass/Vol] 1.17 mg/dL Normal 0.70-1.20 [facility] Comment on above: Performed By: #### M G, CBC, BMP #### [address] [address] Blending Line Attendant: Wenceslao Rose MD GFR/1.73 sq M.predicted among non-blacks MDRD (S/P/Bld) [Vol rate/Area] mL/min/{1.73_m2} Normal >60 [facility] Comment on above: Result Comment: These results [...] By: #### M G, CBC, BMP #### [address] [address] Blending Line Attendant: Wenceslao Rose MD Glucose [Mass/Vol] 91 mg/dL Normal 70-99 [facility] Comment on above: Performed By: #### Marcial Young, CBC, BMP #### [address] [address] Blending Line Attendant: Wenceslao Rose MD Potassium [Moles/Vol] 3.2 mmol/L Low 3.7-5.3 [facility] Comment on above: Performed By: #### Marcial Young, CBC, BMP #### [address] [address] Blending Line Attendant: Wenceslao Rose MD Sodium [Moles/Vol] 140 mmol/L Normal 135-144 [facility] Comment on above: Performed By: #### Marcial Young, CBC, BMP #### [facility] [employer] [address] [place] [address] Blending Line Attendant: Wenceslao Rose MD Urea nitrogen [Mass/Vol] 17 mg/dL Normal 8-23 [facility] Comment on above: Performed By: #### Marcial Young, CBC, BMP #### [facility] [employer] [address] [place] [address] Blending Line Attendant: Wenceslao Rose MD CBCon 10-18-2022 Erythrocyte distribution width (RBC) [Ratio] 21.9 % High 11.8-14.4 [facility] Comment on above: Performed By: #### Marcial Young, CBC, BMP #### [address] [address] Blending Line Attendant: Wenceslao Rose MD Hematocrit (Bld) [Volume fraction] 35.2 % Low 40.7-50.3 [facility] Comment on above: Performed By: #### Marcial G, CBC, BMP #### [facility] [employer] [address] [place] [address] Blending Line Attendant: Wenceslao Rose MD Hemoglobin (Bld) [Mass/Vol] 10.2 g/dL Low 13.0-17.0 [facility] Comment on above: Performed By: #### Marcial Young, CBC, BMP #### [address] [address] Blending Line Attendant: Wenceslao Rose MD MCH (RBC) [Entitic mass] 22.3 pg Low 25.2-33.5 [facility] Comment on above: Performed By: #### M Hannah, CBC, BMP #### [address] [address] Blending Line Attendant: Wenceslao Rose MD MCHC (RBC) [Mass/Vol] 29.0 g/dL Normal 28.4-34.8 [facility] Comment on above: Performed By: #### Marcial Young, CBC, BMP #### [address] [address] Blending Line Attendant: Wenceslao Rose MD MCV (RBC) [Entitic vol] 76.9 fL Low 82.6-102.9 [facility] Comment on above: Performed By: #### Marcial Young, CBC, BMP #### [address] [address] Blending Line Attendant: Wenceslao Rose MD NRBC Automated 0.0 per 100 WBC Normal 0.0 [facility] Comment on above: Performed By: #### Marcial Young, CBC, BMP #### [place] [address] Blending Line Attendant: Wenceslao Rose MD Platelet mean volume (Bld) [Entitic vol] 10.1 fL Normal 8.1-13.5 [facility] Comment on above: Performed By: #### Marcial Young, CBC, BMP #### [address] [address] Blending Line Attendant: Wenceslao Rose MD Platelets (Bld) [#/Vol] 198 10*3/uL Normal 138-453 [facility] Comment on above: Performed By: #### Marcial Young, CBC, BMP #### [employer] [address] [place], [place] [phone] Blending Line Attendant: Wenceslao Rose MD RBC (Bld) [#/Vol] 4.58 10*6/uL Normal 4.21-5.77 [facility] Comment on above: Performed By: #### M G, CBC, BMP #### [employer] [address] [place], [place] [phone] Blending Line Attendant: Wenceslao Rose MD WBC (Bld) [#/Vol] 6.2 10*3/uL Normal 3.5-11.3 [facility] Comment on above: Performed By: #### Marcial G, CBC, BMP #### [employer] [facility] [place], [place] [phone] Blending Line Attendant: Wenceslao Rose MD Hematocrit (Bld) [Volume fraction] 35.2 % Low 40.7 - 50.3 % [facility] Hemoglobin (Bld) [Mass/Vol] 10.2 g/dL Low 13.0 - 17.0 g/dL [facility] Interpretation and review of laboratory results Abnormal [facility] MCH (RBC) [Entitic mass] 22.3 pg Low 25.2 - 33.5 pg [facility] MCHC (RBC) [Mass/Vol] 29.0 g/dL 28.4 - 34.8 g/dL [facility] MCV (RBC) [Entitic vol] 76.9 fL Low 82.6 - 102.9 fL [facility] NRBC Automated 0.0 0.0 per 100 WBC [facility] Platelet distribution width (Bld) [Ratio] 21.9 % High 11.8 - 14.4 % [facility] Platelet mean volume (Bld) [Entitic vol] 10.1 fL 8.1 - 13.5 fL [facility] Platelets (Bld) [#/Vol] 198 10*3/uL [facility] RBC (Bld) [#/Vol] 4.58 10*6/uL 4.21 - 5.77 m/uL [facility] WBC (Bld) [#/Vol] 6.2 10*3/uL [facility] Magnesiumon 10-18-2022 Magnesium [Mass/Vol] 2.0 mg/dL Normal 1.6-2.6 [facility] Comment on above: Performed By: #### M G, CBC, BMP #### [facility] [address] [phone] Blending Line Attendant: Wenceslao Rose MD Magnesium [Mass/Vol] 2.0 mg/dL 1.6 - 2 .6 mg/dL [facility] Basic Metabolic Panelon 09-22 Anion gap [Moles/Vol] 15 mmol/L 9 - 17 mmol/L [facility] Calcium [Mass/Vol] 8.8 mg/dL 8.6 - 10. 4 mg/dL [facility] Chloride [Moles/Vol] 102 mmol/L 98 - 10 7 mmol/L [facility] CO2 [Moles/Vol] 22 mmol/L 20 - 31 mmol/L [facility] Creatinine [Mass/Vol] 1.09 mg/dL 0.70 - 1.20 mg/dL [facility] GFR/1.73 sq M.predicted MDRD (S/P/Bld) [Vol rate/Area] - PINF [facility] Comment on above: These results [...] [Mass/Vol] 98 mg/dL 70 - 99 mg/dL [facility] Interpretation and review of laboratory results Abnormal [facility] Potassium [Moles/Vol] 3.6 mmol/L Low 3.7 - 5.3 mmol/L [facility] Sodium [Moles/Vol] 139 mmol/L 135 - 144 mmol/L [facility] Urea nitrogen [Mass/Vol] 19 mg/dL 8 - 23 mg/dL [facility] Basic Metabolic Profon 10-17 Anion gap [Moles/Vol] 15 mmol/L Normal 9-17 [facility] Comment on above: Performed By: #### B MP, CBC #### [facility] [address] [place] [address] Blending Line Attendant: Wenceslao Rose MD Calcium [Mass/Vol] 8.8 mg/dL Normal 8.6-10.4 [facility] Comment on above: Performed By: #### B MP, CBC #### [facility] [employer] [address] [place] [phone] Blending Line Attendant: Wenceslao Rose MD Chloride [Moles/Vol] 102 mmol/L Normal 98-107 [facility] Comment on above: Performed By: #### B MP, CBC #### [facility] [employer] [address] [place] [phone] Blending Line Attendant: Wenceslao Rose MD CO2 [Moles/Vol] 22 mmol/L Normal 20-31 [facility] Comment on above: Performed By: #### B MP, CBC #### [facility] [address] [place] [phone] Blending Line Attendant: Wenceslao Rsoe MD Creatinine [Mass/Vol] 1.09 mg/dL Normal 0.70-1.20 [facility] Comment on above: Performed By: #### B MP, CBC #### [facility] [employer] [address] [place] [phone] Blending Line Attendant: Wenceslao Rose MD GFR/1.73 sq M.predicted among non-blacks MDRD (S/P/Bld) [Vol rate/Area] mL/min/{1.73_m2} Normal >60 [facility] Comment on above: Result Comment: These results [...] Performed By: #### B MP, CBC #### [facility] [employer] [address] [place] [address] Blending Line Attendant: Wenceslao Rose MD Glucose [Mass/Vol] 98 mg/dL Normal 70-99 [facility] Comment on above: Performed By: #### B MP, CBC #### [facility] [employer] [address] [place] [address] Blending Line Attendant: Wenceslao Rose MD Potassium [Moles/Vol] 3.6 mmol/L Low 3.7-5.3 [facility] Comment on above: Performed By: #### B MP, CBC #### [facility] [employer] [address] [place] [address] Blending Line Attendant: Wenceslao Rose MD Sodium [Moles/Vol] 139 mmol/L Normal 135-144 [facility] Comment on above: Performed By: #### B MP, CBC #### [facility] [address] [place] [phone] Blending Line Attendant: Wenceslao Rose MD Urea nitrogen [Mass/Vol] 19 mg/dL Normal 8-23 [facility] Comment on above: Performed By: #### B MP, CBC #### [facility] [employer] [address] [place] [address] Blending Line Attendant: Wenceslao Rose MD [facility] Erythrocyte distribution width (RBC) [Ratio] 22.3 % High 11.8-14.4 [facility] Comment on above: Performed By: #### B MP, CBC #### [facility] [address] [place] [phone] Blending Line Attendant: Wenceslao Rose MD Hematocrit (Bld) [Volume fraction] 36.9 % Low 40.7-50.3 [facility] Comment on above: Performed By: #### B MP, CBC #### [address] [address] Blending Line Attendant: Wenceslao Rose MD Hemoglobin (Bld) [Mass/Vol] 10.5 g/dL Low 13.0-17.0 [facility] Comment on above: Performed By: #### B MP, CBC #### [address] [address] Blending Line Attendant: Wenceslao Rose MD MCH (RBC) [Entitic mass] 22.2 pg Low 25.2-33.5 [facility] Comment on above: Performed By: #### B MP, CBC #### [address] [address] Blending Line Attendant: Wenceslao Rose MD MCHC (RBC) [Mass/Vol] 28.5 g/dL Normal 28.4-34.8 [facility] Comment on above: Performed By: #### B MP, CBC #### [address] [address] Blending Line Attendant: Wenceslao Rose MD MCV (RBC) [Entitic vol] 78.0 fL Low 82.6-102.9 [facility] Comment on above: Performed By: #### B MP, CBC #### [address] [address] Blending Line Attendant: Wenceslao Rose MD NRBC Automated 0.0 per 100 WBC Normal 0.0 [facility] Comment on above: Performed By: #### B MP, CBC #### [address] [address] Blending Line Attendant: Wenceslao Rose MD Platelet mean volume (Bld) [Entitic vol] 10.3 fL Normal 8.1-13.5 [facility] Comment on above: Performed By: #### B MP, CBC #### [facility] [place] [address] Blending Line Attendant: Wenceslao Rose MD Platelets (Bld) [#/Vol] 185 10*3/uL Normal 138-453 [facility] Comment on above: Performed By: #### B MP, CBC #### [facility] [employer] [facility] [place] [address] Blending Line Attendant: Wenceslao Rose MD RBC (Bld) [#/Vol] 4.73 10*6/uL Normal 4.21-5.77 [facility] Comment on above: Performed By: #### B MP, CBC #### [facility] [employer] [address] [place] [phone] Blending Line Attendant: Wenceslao Rose MD WBC (Bld) [#/Vol] 6.6 10*3/uL Normal 3.5-11.3 [facility] Comment on above: Performed By: #### B MP, CBC #### [facility] [employer] [address] [place] [address] Blending Line Attendant: Wenceslao Rose MD Hematocrit (Bld) [Volume fraction] 36.9 % Low 40.7 - 50.3 % [facility] Hemoglobin (Bld) [Mass/Vol] 10.5 g/dL Low 13.0 - 17.0 g/dL [facility] Interpretation and review of laboratory results Abnormal [facility] MCH (RBC) [Entitic mass] 22.2 pg Low 25.2 - 33.5 pg [facility] MCHC (RBC) [Mass/Vol] 28.5 g/dL 28.4 - 34.8 g/dL [facility] MCV (RBC) [Entitic vol] 78.0 fL Low 82.6 - 102.9 fL [facility] NRBC Automated 0.0 0.0 per 100 WBC [facility] Platelet distribution width (Bld) [Ratio] 22.3 % High 11.8 - 14.4 % [facility] Platelet mean volume (Bld) [Entitic vol] 10.3 fL 8.1 - 13.5 fL [facility] Platelets (Bld) [#/Vol] 185 10*3/uL [facility] RBC (Bld) [#/Vol] 4.73 10*6/uL 4.21 - 5.77 m/uL [facility] WBC (Bld) [#/Vol] 6.6 10*3/uL [facility] Cult,Urineon 10-17-2022 Cult,Urine Specimen Description .CLEAN CATCH URINE Culture NO GROWTH Report Status FINAL 10/17/2022 Normal [facility] Comment on above: Performed By: #### U RC #### [employer] [address] [place], [place] [phone] Blending Line Attendant: Wenceslao Rose MD Culture, Urineon 10-17-2022 Microorganism identified Cx Nom (Unsp spec) NO GROWTH [facility] Specimen Description .CLEAN CATCH URINE [facility] Basic Metab w/rfx MGon 10-16 Anion gap [Moles/Vol] 11 mmol/L Normal 9-17 [facility] Comment on above: Performed By: #### P RCAL, BMPX, CRP, PT #### [employer] [address] [place], [place] [phone] Blending Line Attendant: Wenceslao Rose MD Calcium [Mass/Vol] 8.1 mg/dL Low 8.6-10.4 [facility] Comment on above: Performed By: #### P RCAL, BMPX, CRP, PT #### [employer] [address] [place] [phone] Blending Line Attendant: Wenceslao Rose MD Chloride [Moles/Vol] 104 mmol/L Normal 98-107 [facility] Comment on above: Performed By: #### P RCAL, BMPX, CRP, PT #### [facility] [place] [address] Blending Line Attendant: Wenceslao Rose MD CO2 [Moles/Vol] 23 mmol/L Normal 20-31 [facility] Comment on above: Performed By: #### P RCAL, BMPX, CRP, PT #### [facility] [address] [place] [phone] Blending Line Attendant: Wenceslao Rose MD Creatinine [Mass/Vol] 1.13 mg/dL Normal 0.70-1.20 [facility] Comment on above: Performed By: #### P RCAL, BMPX, CRP, PT #### [address] [address] Blending Line Attendant: Wenceslao Rose MD GFR/1.73 sq M.predicted among non-blacks MDRD (S/P/Bld) [Vol rate/Area] mL/min/{1.73_m2} Normal >60 [facility] Comment on above: Result Comment: These results [...] RCAL, BMPX, CRP, PT #### [facility] [address] [place] [address] [phone] Blending Line Attendant: Wenceslao Rose MD Glucose [Mass/Vol] 95 mg/dL Normal 70-99 [facility] Comment on above: Performed By: #### P RCAL, BMPX, CRP, PT #### [facility] [address] [place] [address] Blending Line Attendant: Wenceslao Rose MD Potassium [Moles/Vol] 3.6 mmol/L Low 3.7-5.3 [facility] Comment on above: Performed By: #### P RCAL, BMPX, CRP, PT #### [facility] [address] [place], [place] [phone] Blending Line Attendant: Wenceslao Rose MD Sodium [Moles/Vol] 138 mmol/L Normal 135-144 [facility] Comment on above: Performed By: #### P RCAL, BMPX, CRP, PT #### [facility] [address] [place], [place] [phone] Blending Line Attendant: Wenceslao Rose MD Urea nitrogen [Mass/Vol] 16 mg/dL Normal 8-23 [facility] Comment on above: Performed By: #### P RCAL, BMPX, CRP, PT #### [facility] [address] [place], [place] [phone] Blending Line Attendant: Wenceslao Rose MD Basic Metabolic Panel w/ Ref mitchel to MGon 10-16-2022 Anion gap [Moles/Vol] 11 mmol/L 9 - 17 mmol/L [facility] Calcium [Mass/Vol] 8.1 mg/dL Low 8.6 - 10. 4 mg/dL [facility] Chloride [Moles/Vol] 104 mmol/L 98 - 10 7 mmol/L [facility] CO2 [Moles/Vol] 23 mmol/L 20 - 31 mmol/L [facility] Creatinine [Mass/Vol] 1.13 mg/dL 0.70 - 1.20 mg/dL [facility] GFR/1.73 sq M.predicted MDRD (S/P/Bld) [Vol rate/Area] - PINF [facility] Comment on above: These results [...] [Mass/Vol] 95 mg/dL 70 - 99 mg/dL [facility] Interpretation and review of laboratory results Abnormal [facility] Potassium [Moles/Vol] 3.6 mmol/L Low 3.7 - 5.3 mmol/L [facility] Sodium [Moles/Vol] 138 mmol/L 135 - 144 mmol/L [facility] Urea nitrogen [Mass/Vol] 16 mg/dL 8 - 23 mg/dL [facility] C-Reactive Proteinon 023 CRP [Mass/Vol] 86.3 mg/L High 0.0-5.0 [facility] Comment on above: Performed By: #### M G, CBC, BMP #### [facility] [employer] [address] [phone] Blending Line Attendant: Wenceslao Rose MD CRP High sensitivity method [Mass/Vol] 86.3 mg/L High 0.0 - 5.0 mg/L [facility] Interpretation and review of laboratory results Abnormal [facility] CBC with Auto Differentialon 10-16-2022 Absolute Eos # 0.13 [facility] Absolute Immature Granulocyte 0.00 [facility] Absolute Lymph # 0.82 Low [facility] Absolute [place] # 0.88 High [facility] Basophils (Bld) [#/Vol] 0.00 10*3/uL [facility] Basophils/100 WBC (Bld) 0 % 0 - 2 % [facility] Eosinophils/100 WBC (Bld) 2 % 1 - 4 % [facility] Hematocrit (Bld) [Volume fraction] 33.5 % Low 40.7 - 50.3 % [facility] Hemoglobin (Bld) [Mass/Vol] 10.2 g/dL Low 13.0 - 17.0 g/dL [facility] Immature granulocytes/100 WBC (Bld) 0 % 0 [facility] Interpretation and review of laboratory results Abnormal [facility] Lymphocytes/100 WBC (Bld) 13 % Low 24 - 44 % [facility] MCH (RBC) [Entitic mass] 22.5 pg Low 25.2 - 33.5 pg [facility] MCHC (RBC) [Mass/Vol] 30.4 g/dL 28.4 - 34.8 g/dL [facility] MCV (RBC) [Entitic vol] 73.8 fL Low 82.6 - 102.9 fL [facility] Monocytes/100 WBC (Bld) 14 % High 1 - 7 % [facility] Morphology Ck (Bld) [Interp] ANISOCYTOSIS PRESENT [facility] Morphology Ck (Bld) [Interp] MICROCYTOSIS PRESENT [facility] NRBC Automated 0.0 0.0 per 100 WBC [facility] Platelet distribution width (Bld) [Ratio] 22.2 % High 11.8 - 14.4 % [facility] Platelets (Bld) [#/Vol] See Reflexed IPF Result [facility] RBC (Bld) [#/Vol] 4.54 10*6/uL 4.21 - 5.77 m/uL [facility] Segmented neutrophils/100 WBC (Bld) 71 % High 36 - 66 % [facility] Segs Absolute 4.47 [facility] WBC (Bld) [#/Vol] 6.3 10*3/uL [facility] CBC with Diffon 10-16-2022 Abs. Basophil 0.00 k/uL Normal 0.0-0.2 [facility] Comment on above: Performed By: #### C DP, IPF #### [employer] [address] [place], [place] [phone] Blending Line Attendant: Wenceslao Rose MD Abs.Imm.Granulocyte 0.00 k/uL Normal 0.00-0.30 [facility] Comment on above: Performed By: #### C DP, IPF #### [employer] [address] [place], [place] [phone] Blending Line Attendant: Wenceslao Rose MD Abs.Neutrophil (Seg) 4.47 k/uL Normal 1.8-7.7 [facility] Comment on above: Performed By: #### C DP, IPF #### [facility] [address] [place] [address] Blending Line Attendant: Wenceslao Rose MD Basophils/100 WBC (Bld) 0 % Normal 0-2 [facility] Comment on above: Performed By: #### C DP, IPF #### [facility] [address] [place] [address] Blending Line Attendant: Wenceslao Rose MD Eosinophils (Bld) [#/Vol] 0.13 10*3/uL Normal 0.0-0.4 [facility] Comment on above: Performed By: #### C DP, IPF #### [address] [address] Blending Line Attendant: Wenceslao Rose MD Eosinophils/100 WBC (Bld) 2 % Normal 1-4 [facility] Comment on above: Performed By: #### C DP, IPF #### [address] [address] Blending Line Attendant: Wenceslao Rose MD Immature granulocytes/100 WBC (Bld) 0 % Normal 0 [facility] Comment on above: Performed By: #### C DP, IPF #### [address] [address] Blending Line Attendant: Wenceslao Rose MD Lymphocytes (Bld) [#/Vol] 0.82 10*3/uL Low 1.0-4.8 [facility] Comment on above: Performed By: #### C DP, IPF #### [facility] [address] [place] [address] Blending Line Attendant: Wenceslao Rose MD Lymphocytes/100 WBC (Bld) 13 % Low 24-44 [facility] Comment on above: Performed By: #### C DP, IPF #### [address] [address] Blending Line Attendant: Wenceslao Rose MD Monocytes (Bld) [#/Vol] 0.88 10*3/uL High 0.1-0.8 [facility] Comment on above: Performed By: #### C DP, IPF #### [address] [address] Blending Line Attendant: Wenceslao Rose MD Monocytes/100 WBC (Bld) 14 % High 1-7 [facility] Comment on above: Performed By: #### C DP, IPF #### [address] [address] Blending Line Attendant: Wenceslao Rose MD Morphology Ck (Bld) [Interp] ANISOCYTOSIS PRESENT Normal [facility] Comment on above: Result Comment: MICR OCYTOSIS PRESENT Performed By: #### C DP, IPF #### [address] [address] Blending Line Attendant: Wenceslao Rose MD Neutrophil (Seg) 71 % High 36-66 [facility] Comment on above: Performed By: #### C DP, IPF #### [address] [address] Blending Line Attendant: Wenceslao Rose MD Erythrocyte distribution width (RBC) [Ratio] 22.2 % High 11.8-14.4 [facility] Comment on above: Performed By: #### C DP, IPF #### [address] [address] Blending Line Attendant: Wenceslao Rose MD Hematocrit (Bld) [Volume fraction] 33.5 % Low 40.7-50.3 [facility] Comment on above: Performed By: #### C DP, IPF #### [address] [address] Blending Line Attendant: Wenceslao Rose MD Hemoglobin (Bld) [Mass/Vol] 10.2 g/dL Low 13.0-17.0 [facility] Comment on above: Performed By: #### C DP, IPF #### [address] [address] Blending Line Attendant: Wenceslao Rose MD MCH (RBC) [Entitic mass] 22.5 pg Low 25.2-33.5 [facility] Comment on above: Performed By: #### C DP, IPF #### [address] [address] Blending Line Attendant: Wenceslao Rose MD MCHC (RBC) [Mass/Vol] 30.4 g/dL Normal 28.4-34.8 [facility] Comment on above: Performed By: #### C DP, IPF #### [address] [address] Blending Line Attendant: Wenceslao Rose MD MCV (RBC) [Entitic vol] 73.8 fL Low 82.6-102.9 [facility] Comment on above: Performed By: #### C DP, IPF #### [address] [address] Blending Line Attendant: Wenceslao Rose MD NRBC Automated 0.0 per 100 WBC Normal 0.0 [facility] Comment on above: Performed By: #### C DP, IPF #### [place] [address] Blending Line Attendant: Wenceslao Rose MD Platelet Count See Reflexed IPF Result Normal 138-453 [facility] Comment on above: Performed By: #### C DP, IPF #### [place] [address] Blending Line Attendant: Wenceslao Rose MD RBC (Bld) [#/Vol] 4.54 10*6/uL Normal 4.21-5.77 [facility] Comment on above: Performed By: #### C DP, IPF #### [address], [place] [phone] Blending Line Attendant: Wenceslao Rose MD WBC (Bld) [#/Vol] 6.3 10*3/uL Normal 3.5-11.3 [facility] Comment on above: Performed By: #### C DP, IPF #### [employer] [address] [place] [address] [phone] Blending Line Attendant: Wenceslao Rose MD Immature Platelet Fractionon 10-16-2022 Platelet, Fluorescence [address] Comment on above: ORDERED BY LAB Platelet, Immature Fraction 5.3 % 1.1 - 10.3 % [facility] Comment on above: ORDERED BY LAB [facility] Microscopic Urinalysison Casts UA 5 TO 10 HYALINE Refe rence range defined for non-centrifuged specimen. [facility] [employer] [place] Epithelial Cells UA 2 TO 5 [facility] RBC clumps Auto (Urine sed) [#/Area] TOO NUMEROUS TO COUNT [facility] Comment on above: Reference range defi radha for non-centrifuged specimen. WBC, UA 50 TO 100 [facility] PLT, Immature Fract.on 10-16 Platelet, Fluoresc. 154 k/uL Normal 138-453 [facility] Comment on above: Result Comment: ORDE RED BY LAB Performed By: #### C DP, IPF #### [employer] [address] [place] [address] Blending Line Attendant: Wenceslao Rose MD PLT, Immature Fract. 5.3 % Normal 1.1-10.3 [facility] Comment on above: Result Comment: ORDE RED BY LAB Performed By: #### C DP, IPF #### [employer] [address] [place] [address] [phone] Blending Line Attendant: Wenceslao Rose MD PTon 10-16-2022 INR Coag (PPP) [Relative time] 1.2 {INR} Normal [facility] Comment on above: Result Comment: Therapeutic Range: Moderate Anticoagulant Intensity: INR = 2.0-3.0 High Anticoagulant Intensity: INR = 2.5-3.5 Performed By: #### P RCAL, BMPX, CRP, PT #### [employer] [address] [place], [place] [phone] Blending Line Attendant: Wenceslao Rose MD PT Coag (PPP) [Time] 12.4 s High 9.1-12.3 [facility] Comment on above: Performed By: #### P RCAL, BMPX, CRP, PT #### [employer] [address] [place], [place] [phone] Blending Line Attendant: Wenceslao Rose MD Procalcitoninon 10-16-2022 Procalcitonin 0.20 ng/mL High <0.09 [facility] Comment on above: Result Comment: Suspected Sepsis: [...] entered into the Change in Procalcitonin Calculator (www.vrckdu-kvl-qzsyaccgyv.com) to determine the patient's Mortality Risk Prognosis In healthy neonates, plasma Procalcitonin (PCT) concentrations increase gradually after , reaching peak values at about 24 hours of age then decrease to normal values below 0.5 ng/mL by 48-72 hours of age. Performed By: #### M G, CBC, BMP #### [employer] [address] [place], [place] [phone] Blending Line Attendant: Wenceslao Rose MD Interpretation and review of laboratory results Abnormal [facility] Procalcitonin [Mass/Vol] 0.2 ng/mL High NINF - 0.09 ng/mL [facility] Comment on above: Suspected Sepsis: [...] entered into the Change in Procalcitonin Calculator (www.elicpb-tpb-wdlzqlpccv.[employer]) to determine the patient's Mortality Risk Prognosis In healthy neonates, plasma Procalcitonin (PCT) concentrations increase gradually after , reaching peak values at about 24 hours of age then decrease to normal values below 0.5 ng/mL by 48-72 hours of age. [facility] Protime-INRon 10-16-2022 INR Coag (PPP) [Relative time] 1.2 {INR} [facility] Comment on above: Therapeutic Range: Moderate Anticoagulant Intensity: INR = 2.0-3.0 High Anticoagulant Intensity: INR = 2.5-3.5 Interpretation and review of laboratory results Abnormal [facility] PT Coag (PPP) [Time] 12.4 s High [facility] UA w/Reflex Cultureon 2022 Bilirubin, SemiQt,Ur Negative Normal NEG [facility] Comment on above: Performed By: #### M G, CBC, BMP #### [employer] [address] [place] [address] Blending Line Attendant: Wenceslao Rose MD Blood, Urine LARGE Abnormal NEG [facility] Comment on above: Performed By: #### M G, CBC, BMP #### [employer] [address] [place] [address] [phone] Blending Line Attendant: Wenceslao Rose MD Clarity (U) Cloudy Abnormal CLEAR [facility] Comment on above: Performed By: #### M G, CBC, BMP #### [facility] [address] [place] [address] Blending Line Attendant: Wenceslao Rose MD Color (U) Yellow Normal YEL [facility] Comment on above: Performed By: #### M G, CBC, BMP #### [facility] [address] [place] [address] Blending Line Attendant: Wenceslao Rose MD Glucose Ql (U) Negative Normal NEG [facility] Comment on above: Performed By: #### M G, CBC, BMP #### [facility] [address] [place] [address] Blending Line Attendant: Wenceslao Rose MD Ketones Ql (U) MODERATE Abnormal NEG [facility] Comment on above: Performed By: #### M G, CBC, BMP #### [facility] [address] [place] [address] Blending Line Attendant: Wenceslao Rose MD Leukocyte esterase Test strip Ql (U) SMALL Abnormal NEG [facility] Comment on above: Performed By: #### M G, CBC, BMP #### [facility] [address] [place] [address] Blending Line Attendant: Wenceslao Rose MD Nitrite,Ur Negative Normal NEG [facility] Comment on above: Performed By: #### M G, CBC, BMP #### [facility] [address] [place] [address] Blending Line Attendant: Wenceslao Rose MD PH,Ur 5.5 Normal 5.0-8.0 [facility] Comment on above: Performed By: #### M G, CBC, BMP #### [facility] [address] [place] [address] Blending Line Attendant: Wenceslao Rose MD Protein Ql (U) 2+ Abnormal NEG [facility] Comment on above: Performed By: #### M G, CBC, BMP #### [employer] [address] [place], [place] [phone] Blending Line Attendant: Wenceslao Rose MD Spec. [place],Ur 1.023 Normal 1.005-1.03 0 [facility] Comment on above: Performed By: #### M G, CBC, BMP #### [facility] [address] [place], [place] [phone] Blending Line Attendant: Wenceslao Rose MD Urobilinogen,Ur Normal Normal NORM [facility] Comment on above: Performed By: #### M G, CBC, BMP #### [employer] [address] [place], [place] [phone] Blending Line Attendant: Wenceslao Rose MD Urinalysis with Reflex to Cu ltureon 10-16-2022 Bilirubin Urine Negative NEGATIVE [facility] [employer] [facility] Color, UA Yellow Yellow [facility] Glucose Auto test strip (U) [Mass/Vol] Negative NEGATIVE [facility] Interpretation and review of laboratory results Abnormal [facility] Ketones (U) [Mass/Vol] MODERATE Abnormal NEGATIVE [facility] Leukocyte esterase Auto test strip Ql (U) SMALL Abnormal NEGATIVE [facility] Nitrite Auto test strip Ql (U) Negative NEGATIVE [facility] Protein (U) [Mass/Vol] 5.5 mg/dL 5.0 - 8.0 WILL N [facility] Protein (U) [Mass/Vol] 2+ Abnormal NEGATIVE WILL N [facility]CT[facility]ITAL[facility] Specific [place], UA 1.023 1.005 - 1.030 [facility] Turbidity UA Cloudy Abnormal Clear [facility] Urine Hgb LARGE Abnormal NEGATIVE [facility] Urobilinogen, Urine Normal Normal [facility]ITAL[facility] Urinalysis,Microon 3 Casts 5 TO 10 HYALINE Normal 0-8 [facility] Comment on above: Result Comment: Refe rence range defined for non-centrifuged specimen. Performed By: #### M G, CBC, BMP #### [employer] [address] [place] [address] Blending Line Attendant: Wenceslao Rose MD Epithelial cells LM Ql (Urine sed) 2 TO 5 Normal 0-5 [facility] Comment on above: Performed By: #### M G, CBC, BMP #### [facility] [address] [place] [address] Blending Line Attendant: Wenceslao Rose MD Urine RBC's TOO NUMEROUS TO COUNT Normal 0-4 [facility] Comment on above: Result Comment: Refe rence range defined for non-centrifuged specimen. Performed By: #### M G, CBC, BMP #### [employer] [address] [place] [address] Blending Line Attendant: Wenceslao Rose MD Urine WBC's 50 TO 100 Normal 0-5 [facility] Comment on above: Performed By: #### M G, CBC, BMP #### [employer] [address] [place] [address] Blending Line Attendant: Wenceslao Rose MD Tobacco Screening.on 023 Adult depression screening assessment No [facility] [employer] [place] [address] DO Work Phone: Fall risk assessment a) No falls within the last year [facility] [employer] [place] [address] DO Work Phone: Tobacco use status [facility] b) No [facility] [employer] [place] [address] DO Work Phone: Tumor Staging Formon 022 Tumor Staging Form [id number]:127 Normal [facility] URINALYSIS, REFLEX MICROSCOP ICon 05-06-2022 Bilirubin Ql (U) Negative Negative [facility] Clarity (Unsp spec) Turbid Abnormal Clear [facility] Color (U) Red Abnormal Yellow [facility] Glucose Test strip (U) [Mass/Vol] Negative Negative [facility] Hemoglobin Ql (U) 3+ Abnormal Negative [facility] Ketones Ql (U) Negative Negative [facility] Leukocyte esterase Test strip Ql (U) 75 Danilo/mL Abnormal Negative [facility] Nitrite Ql (U) Negative Negative [facility] pH (U) 7.0 [pH] 5.0 - 8.0 [facility] Protein (U) [Mass/Vol] 1+ Abnormal Negative Cl [facility] RBC LM.HPF (Urine sed) [#/Area] /[HPF] Abnormal 0-3 /HPF [facility] Specific gravity (U) [Rel density] 1.008 1.005 - 1.030 [facility] Urobilinogen Ql (U) Negative Negative [facility] WBC LM.HPF (Urine sed) [#/Area] 11-25 /HPF Abnormal 0-5 /HPF [facility] Screenson 03-30-2022 Screens [id number]:127 Normal [facility] Ambulatory Visit Summaryon 0 03-29-2022 Ambulatory [...] CT Where: [facility] [address], [place] [address] [phone] Medications What How Much When Instructions Unchanged [...] adult Pulmonary embolism Radiculopathy Urge incontinence Normal [facility] Patient Educationon 03-29-20 Patient Education Oncology [...] including vitamins, herbs, eye drops, creams, and rlgv-wdj-afokrry medicines. ? Any problems you or family [...] tells you to take them. ? Taking wpjb-fja-bpjakyn medicines, vitamins, herbs, and supplements. Tests You [...] walk around (more content not included)... Normal [facility] Urology Office/Clinic Noteon 03-29-2022 Urology Office/Clinic [...] We will (more content not included)... Normal [facility] Comment on above: Result Comment: Elec [...] Impaired glucose tolerance test / SNOMED CT 047435949 / Confirmed BPH (benign prostatic hyperplasia) / SNOMED CT 364922353 / Confirmed Calcaneal spur / SNOMED CT 05971123 / Confirmed Gross hematuria / SNOMED CT 526091150 / Confirmed Hypercholesteremia / SNOMED CT 88107704 / Confirmed Hypertension / SNOMED CT 9679986878 / Confirmed Lumbosacral spondylosis without myelopathy / SNOMED CT 80437749 / Confirmed Macular edema / SNOMED CT 64659448 / Confirmed Bladder mass / SNOMED CT 1068281241 / Confirmed Myasthenia gravis / SNOMED CT 689934362 / Confirmed Radiculopathy / SNOMED CT 199517323 / Confirmed Obesity / SNOMED CT 7060108684 / Confirmed Obstructive sleep apnea, adult / SNOMED CT 2186493124 / Confirmed Obstructive apnea / SNOMED CT 052693515 / Confirmed Pulmonary embolism / SNOMED CT 15111036 / Confirmed Histories Past Medical History: No active or resolved past medical history items have been selected or recorded. Family History: Cancer Mother Heart disease Father Procedure history: Cystoscopy and transurethral resection of bladder ([id number]) on 03/03/2022 at 76 Years. Cystoscopy ([id number]) on 12/27/2021 at 76 Years. Transurethral water vapor ablation of prostate ([id number]) on 02/16/2017 at 71 Years. CE - Cataract extraction ([id number]). Cardiac catheterization ([id number]). Neck Surgery ([id number]). Comments: 02/17/2022 14:13 EDT - Davina ROMERO, [...] results Radiology results ECG interpretation Condition Plan [place] [employer] (ASA) physical status classification: Class III. Anesthetic Preoperative Plan Anesthesia: General. . Anesthetic plan, risks, benefits, and alternatives discussed with the patient and/or family. Risks discussed: nausea, vomiting, headache, sore throat, dental injury, serious complications. Patient verbalized understanding. Communication: face to face with (patient 5 minutes, Pt educated on the importance of smoking cessation.). [facility] [facility] Comment on above: Result Comment: Elec tronically Signed By: Jhonny Fuentes Jr, DO\cosme\Date and Time Signed: 03/23/22 12:18 EDT Coding Summary.on 03-14-2022 Coding Summary. CD:[id number]:[id number] Gh0bWw +PGhlYWQ+ZY8XBKHuF33isSBzo S3PY3uGHC4RIYXVUPZCXT9KZL6 ftGQ3EBurN5PpgnTt CfywhOCmYC82UXu7UHR6qIvkRA vqlX2ipITxG0c1XtZoVQ82eZ10 MXeeGXFgVtS5MfIhmeaueFHh K7xyUuDnzMHpHtg+PHRhYmxlIH laJIUiHXdgIUSqDeLmbZbmPD1l Bi9bOPYhCDXowNsceIDbWjNv i8ejHBWnONmsUK2boSntT6WqoI Q8ZYPpw0d3Dk81xYU+PHRkIHN0 rZhpWOvln193DeZpj4aaUXE7 dOMmYBemWCZ3G62oh3Y8LVQeHX XnYMH6tTU1vK1xfOxbwwiaL9Yz rNVvPnK6KIK2oJUyjU1rkAec sysozY9uGdy+J18MSD3HVOKXGX 2RBrs1Y1VnUqofbEW+FC18HETb ZR81uLBfnBWov8vvnZp0EbIt JZPqBUS3dLioNYehn5CsWRGyC0 6rxCWju4Z7GWXfcRlsgAXuQiAr hPN3qC5kUKmrjbqar0emiifb Jlzck6ckqk31iW39L72gJTisMA OhFMW9TGTuBMIvgSpaac0lyP8f Ii8+TCjlv9qzy2diaQa6MxDs EHYohqNbnZgtOKM8c2WrOl20G1 EvlFikk9JpCaj6ex51fAGsc7E9 qZW8RYfgHHPmuF4mDFtlHnV9 PZTnHoAekZ74dMQgGCgyLy8glU rbmYquRP2bQZLxpmgvPXCmbP2q WMPouGIstHxuAK8kZERrmzjs v161XsXjETQ6PJKwaLFqS4MjqC 2hBbBhOCBgXAVnU0GmyEJnMXlr N549CHpcYmH2DIAfdxXkL0Hr DWMcaYlrQmU4n8R1Oj0Mm8Jgmm vsEWH5YNktNAN7YhH5VcDcJtW4 L0CuIhp3EFCclYssUI6vT1Yx ETWsugljlhirvTY4WIRgFQUxzB 08dTMjPIzeNh8qm9K8j110OIRp FNAmwC67Sp7ahPncKTDubORI fS2scooqu7lapplxUdLfRDRwFN c2MXs8EKVxzFrvTbTpNGM5RlW7 NZE0uWWnlP8yrVxtuewvcQ1u Oyc+H82xmW1aVHY5VXA8raauFU XvqdNrPQ21IK18H3OaXqlpmMRg bGU+LANjfsFdtBlsYU2nKvUy t9uad3DkKEuqL6XeZBLySTaoGh h3STLsHSI1yTW9dL6yDMAaSWgi n9V8pQS9B9JwaxXuxr2tm2rq FYLrANfsV20ioFDdb0K3AEAxoB K5BOWbqDqbLrDjoL39Njc+PGNv oChgo6AtIceqe4twn0lfxGi8 MqOiNRDoohMfpWnvWYB6p4MmCi 24S66fPZuyXPWiNXFbRXIhSWIn jTpwrd9wlM5bKn0+PGNvbCB3 dKW0bI4fLSHfQlJ0JEchI806Dd HtyJFxRxqcx3orf8blyUx9OlAc HSFkwzIueVfpATG1e4DrTc85 I12pVMukSRZsNWVuFEDsGQTexC zgmd8wwE1iCh9+BT1gf8yhpw47 gZ68oBK+IVDxDDW6tNocESwx TYGuyC1lKDapAvT4QTWvKlKkdJ 52vAAdRRoiIv6reJlkvExeJA1g GRTpwmylj080PeAfl4fwCOEp hQKwDTrhZIE6A39wa1O3UUYsIM OwQHQ5hFH3hL9zcUbsbsdvnLAz eGofscBgzTacBHryPCmgG435 IHRvcDsnPlBhdGllbnQgTmFtZT j8K6XqVmq9EFAzdRcpHD1yzOOe UHywVv7lcUdnuScnAB4jLXAn kcpom145YnXdz8iyRBWvoDFvPF ucTIS8K25us2Q7QQNoRCLpXDG4 hKC0dA0fyYsfitkarNGiiNog tkKrfLiiYJguBJsxU843DWFsoM fiQyHaepXaNAUdiQP8TJ61GU84 pZHuf4G5uRU3C0FeNUPfnojf wtyiiWF4ORZsHJCphJ02Mq6fyY akNv9pELXzFTJ4DBUncHQhP1Dr lD5eXeLpLFFiUIIuC8KasGJb GCefK617QHpgCnB5EVUhihKmZ7 JhPFFulKnhYvD0x4L2Ia3LG8U2 SS54OY17zUCef9A7jBG0Z2Dt NZNjugoouzocyDV7BELzUOAbrJ 07Ng6baGrqRa6mNFMvTHG9WUOz hSDeC8RbnC2xHvNqZYHsXMZb K7LgaYFbDAreI852OJehBlH8WX SnshDuC2KhXMSqzUxfZvO8w7Y2 Un0GPQn3CG86LC26mBDjt9T0 vDD0O4PsPQMohbysrzarkYY0UQ OvSRVidA25Je6euFjkVp3pDIVv XZX4FVYlrUFhE5RcfZ3jCtIc WLFgCCCxD9CrbYJtVQsvB801HE vjLjN4WOPpdmVpY8FiHBYyhRyp AwS4a8F9Am3PBZRmUR48YJR6 wOB6AF62WU75W4OmJroykNKnmM U+PHRhYmxlIHdpZHRoPScxMDAl LcTvaJntSU7aAg4xFVOoJJKn nZpcqNVrAwDkh8xbJDIzPTbkZV 9drWaeB2HyaDE8MEBqp9d3Ds97 Q01yG5ZjnSP+SNJpcIO6xEG3 lC4fVnScFeI9ATfwR082MtOxqH UlCescc0yjp1nnpOt9RpC7VEOr igLzaYctWCT1k8IqLq95V33w IHdpZHRoPSIxNSUiIHZhbGlnbj 3arS8lMn7+GBJmrNL4uCX8gT4e LePgUqO3BFifX530DpJnbOCc Gyplj7kpk7zyxRz7FvKlVQNysw PvmUmiVFR2s4VsSa39D1BswYlr f2YvFrw6pn49eLLdo3R1zWN7 N8NmNMCnreoagAXhcKzlKX8aCR OwqxesIHAwaC9nPAYjJ0o7WoHq AzD0ERolW9RwpsV0MZIzmAFz WIkyODV6U73qr0B1ROMxKRNqZB E3zUL3wW6ggAbtgwntpGJeyApu tyZphGbjFYbmLSyrJ852UNOi mKeeZEUjwJ7bLLFvaPSshIagMV 0wHMYyltpjPoHIT91KEwqcU4nW NciBNgYKVP88XI80rBJcc2I9 iRA3V2CcONKlnosqcvxobDW9EC XdVLDtqX16dQSaFUvaSe5pa7Y4 m336NCGbLUBivG14Wj5soTcx JMBowLHQoX9ooeehp4wygajsZr JaWYInWHe3IFw7LNJrpWvwDrOy AQQ3PrD2LOX8oVMzbX9fvYon anwcrY3tAnp+QQBhCIZyDNe3LJ wvdGQ+GZWfOCH7kCtcZCfiLOUr aL2dWSKtC8w2DeBaChZ7YWms U1BsCAHexblxYy89tH6cQhTcQn N2MRicM1DuruT0HUVhgVFiIFzl VXA6Y38jq3U8CZZyXCUmVXU7 aCM1bI5ekZusdigccFZorByvdj ZwcSdrWOiaDKtnX886LZYduPfs Chg1NLoaNZSpDK90ZB70yDCp i1S4xIV5A9UxGZOymoohzcfgwC I8SRWuVUXmsT33pZXoSOrfMg6j l7U9i773KKQmUSWknH89Xc9u xOcwMXDhpHWJeX3wgmdzd8jalu zuJjPiVGAlTPf2ADi0ROYroUxi NxVaSDK5MoE8BPR5mPWquT7a tKocozdjfK8vGsd+TWFsZTwvdG Q+ERPgUDF1iRbqNXguAGNhgJ5m QFMgM9g1QrShMoV1FEdhX3Aq RQUyshtrSs21uC5iLnNrRkO1TF auY9SuchR6LUOqyVRqRSybBRN0 C79ll3X8ZWGtQLYtHBT8cFS2 sE8kfCrgjodzsWFflFpiemPyfC raUFcuOMalU759DWGekGjyMoYg FqQsCYMiaoueO0IsGHGPIWnr G0XpG3WyoHqudGC+SC35lt65Y6 AuGnxeTms7DEXzCHC9uYJ1hK9a JQDaBJbio9K9fRC2C7TzpuOg ai9ve5mqANGwYUdfD54fuIHwx8 J1RZDxwDA0NKCnpOtjAeNvyP26 Oyc+QEHrkHdsb8DpOcuyk3fn q2laxTz5YoUdFWAywpKwfPpjDX F1r9JmTh29H52xAOsmHXEsKIVq XIPrRIYhrUiaji2ytZ2xJo2+ VDUopZE8gUO4bO3dCrNzHwU4AT bnL244VgAssWJwJwhym0vpd0go fAu8IdByHOMjdmCiuQrrWNL4 v8ByQz22V3QysPspg5ZcJup0qv 55vCGyr2M4zUU0X3BtWFCdazjd oIToyJigML2eBWObsefeVOLx tT5xYJRjE9i7XxMlMcX4ZPisY6 GsevY5QZHgvJQpNNOjbNMWwW5w mlesm7jmebukBfYqGXOaGOr4 VVb5MPPajRulKoSzPDB8DqD2MQ H7fZTfeQ0ynBcuqtwpxH3yHtt+ WZc0k3urrTMxON3hnCB7ZB78 EH58rMXjr7S4aKV1K0VrQIPiik gxsqbtjVL4OGFpJLJvjL58Rn1r zGhwKb5mLEBrLGY3JTYeoDRj S5UqjW0oFsRyHHGhTFGlI9AwrS ApWHixR332SUodWbY5OBThvmGp J2WeFVKxxWqmPqN4o4L4Ty9T QJ63AG79MV38nBBvk4C9gQK7T1 GoSBTabkmbserkdJV1SFAjTRRb yJ16Sr6xyMaqMu1mDWIvZQC5 TFOijIEvG8VniR4fIzOiMTLiYM FgQ8RsaYOlCFndD455MGytUfK6 SRIsjxJvD9DyCRRgxWhzItC8 c9I9Oa9BYo63HN25VE69bARlw9 Z4fPS4Q0DrIZMuazuxrdbyvRI3 LSEqPEIhzC33Sr2lnApqIb1n NPRbFGK3ZLVrsJMzP8SfeD4fYf SoOTGaAINsV9CckGGtHAlzY784 PKvpSlN0OPGiqrFcN9ClJFCy lQycAnC1b1R5Fc5ENCdhvyd9V1 RkPjwvdHI+AT13KIKaBT30oYJd mYDfm5ghyBj5KpXoBTMqIXI2 eWxl (more content not included)... Normal [facility] Progress Note-Physicianon Progress Note-Physician Patient: TAURUS GARCIA Age: 76 years Sex: Male : 1945 Associated Diagnoses: None Author: Jhonny Fuentes Jr, DO Postoperative Information Post Operative Note: Post Anesthesia Care Unit. Anesthetic utilized: General. Health Status Allergies: Allergic Reactions (Selected) No Known Medication Allergies Problem list: All Problems Impaired glucose tolerance test / SNOMED CT 728656417 / Confirmed BPH (benign prostatic hyperplasia) / SNOMED CT 232440781 / Confirmed Calcaneal spur / SNOMED CT 55921941 / Confirmed Gross hematuria / SNOMED CT 091444581 / Confirmed Hypercholesteremia / SNOMED CT 13591071 / Confirmed Hypertension / SNOMED CT 0248015064 / Confirmed Lumbosacral spondylosis without myelopathy / SNOMED CT 85902168 / Confirmed Macular edema / SNOMED CT 84383388 / Confirmed Bladder mass / SNOMED CT 4424893434 / Confirmed Myasthenia gravis / SNOMED CT 799859342 / Confirmed Radiculopathy / SNOMED CT 196799436 / Confirmed Obesity / SNOMED CT 7755897935 / Confirmed Obstructive sleep apnea, adult / SNOMED CT 1168077885 / Confirmed Obstructive apnea / SNOMED CT 284692909 / Confirmed Pulmonary embolism / SNOMED CT 70069074 / Confirmed Physical Examination Vital Signs 03/03/2022 [...] Pressure 104 mmH (more content not included)... [facility] Comment on above: Result Comment: Elec tronically Signed By: Jhonny Fuentes Jr, DO\.br\Date and Time Signed: 03/14/22 08:36 EDT H&P Updateon 03-10-2022 H&P Update [id number]#1.00CD:127 [facility] H&P Update [id number]#1.00CD:127 [facility] Outside Recordson 03-10-2022 Outside Records [id number]#1.00CD:127 [facility] Postoperative Documentson Postoperative Documents [id number]#1.00CD:127 [facility] Coding Queryon 03-07-2022 Coding Query - From: Analisa Salazar To: Autumn Molina MD, Yoko Hair; Sent: 03/07/2022 13:03:40 EDT ! Subject: Coding Query Dr Leyva, Please document the size of the bladder tumor- -Less than 0.5 cm -0.5 up to 2.0cm -2.0 to 5.0 cm -Larger than 5.0 cm Thank you, Kimberlee HIM Coding [facility] IntraOperative Documentson 0 03-07-2022 IntraOperative Documents [id number]#1.00CD:127 [facility] Consent for Anesthesiaon Consent for Anesthesia [id number]#1.00CD:127 [facility] Discharge Instructionson Discharge Instructions [id number]#1.00CD:127 [facility] IntraOperative Documentson 0 03-04-2022 IntraOperative Documents [id number]#1.00CD:127 [facility] IntraOperative Documents [id number]#1.00CD:127 [facility] Main OR Intraoperative Recor don 03-04-2022 Main OR Intraoperative Record IntraOp Document Type FT Summary Primary Physician: Yoko Leyva Jr., MD Finalized Date/Time: 03/04/22 12:28:36 Pt. Name: TAURUS GARCIA/Sex: 1945 Male Med Rec #: [id number] Physician: Yoko Leyva Jr., MD Financial #: [id number] Pt. Type: A Room/Bed: AS11/19 Admit/Disch: 03/03/22 07:42:53 - 03/03/22 13:20:00 Institution: [...] Zuleyma Alfonso Role Performed Surgeon - Primary Clinical Faculty - Primary Clinical Faculty - Primary Time In 03/03/22 09:59:00 03/03/22 09:59:00 03/03/22 09:59:00 Time Out 03/03/22 11:23:00 03/03/22 11:23:00 03/03/22 11:23:00 Procedure CYSTOSCOPY TURB(.) CYSTOSCOPY TURB(.) CYSTOSCOPY TURB(.) Comments precepting orienting Last Modified By: Zuleyma Martinez Leanne M Pierson, Leanne M 03/03/22 12:03:26 03/03/22 11:39:52 03/03/22 11:39:52 Entry 4 Entry 5 Entry 6 Case Attendee Masha Cedeño MEDICAL AFFAIRS DIRECTOR, Lydia Rios CAA, Jessica Ceja Role Performed Scrub - Primary Scrub - Primary Anesthesiologist Trapeze Artist Time In 03/03/22 09:59:00 03/03/22 09:59:00 03/03/22 09:59:00 Time Out 03/03/22 11:23:00 03/03/22 11:23:00 03/03/22 11:23:00 Procedure CYSTOSCOPY TURB(.) CYSTOSCOPY TURB(.) CYSTOSCOPY TURB(.) Comments precepting orienting Dr. Fuentes machine rough rounder Last Modified By: Zuleyma Martinez Leanne M [...] Molina MD, Yoko Hair, Given Participants Dilan RN, Radha Velez, Zuleyma Martinez, Masha Cedeño E, Francisca MEDICAL AFFAIRS DIRECTOR, Lydia Ceja, Gabriel LE, Jessica Donovan Time Out Complete 03/03/22 10:05:00 [...] and tissue Entry 1 Skin Integrity Intact, [place], Warm, and Skin Abnormality No Dry Outcomes Met? Yes Last Modified By: Zuleyma Martinez 03/03/22 10:42:49 Post-Care Text: The patient is free from signs and symptoms of injury caused by extraneous objects Patient Positioning FT Pre-Care Text: Identifies physical alterations that require additional precautions for procedure-specific positioning, verifies presence of p (more content not included)... [facility] Main OR PACU I Recordon 02-18 Main OR PACU I Record PACU Phase I Docum ent Type FT Summary Primary Physician: Yoko Leyva Jr., MD Finalized Date/Time: 03/04/22 07:47:44 Pt. Name: TAURUS GARCIA Carrie SoodB./Sex: 1945 Male Med Rec #: [id number] Physician: Yoko Leyva Jr., MD Financial #: [id number] Pt. Type: A Room/Bed: [place] [address] Admit/Disch: 03/03/22 07:42:53 - 03/03/22 13:20:00 Institution: [...] 15:56 Lucy Ohara RN 03/04/22 07:47 Normal [facility] Preoperative Documentson Preoperative Documents [id number]#1.00CD:127 [facility] Preoperative Documents [id number]#1.00CD:127 Normal [facility] Consent for Procedure/Surger yon 03-03-2022 Consent for Procedure/Surgery [id number]#1.00CD:127 [facility] Consent for Treatmenton 02-18 Consent for Treatment [id number]#1.00CD:127 [facility] Inpatient Patient Summaryon 03-03-2022 Inpatient Patient Summary [place] [id number] [facility] Clinical Discharge Instructions PERSON INFORMATION Name: TAURUS GARCIA [facility]#:[id number] PHYSICIANS Admitting Physician: Yoko Leyva Jr., MD Attending Physician: Yoko Leyva Jr., MD PCP: KOMAL SCHAFFER MD Discharge Diagnosis: Malignant neoplasm of overlapping sites of bladder Comment: PATIENT EDUCATION INFORMATION Instructions: Post Op Patient Instructions - FT (CUSTOM) Medication Leaflets: Follow up: With: Address: When: [facility], [address], [place] [address] [facility] (1) Within 2 to 4 weeks Comments: Reviewed pathology report and plan exudative treatment. Call for any problems. Call for followup appointment MEDICATION LIST New Medications [facility], [address] [place], [place] [id number], [phone] cephalexin (Keflex 500 mg Cap) 1 Capsules [...] times a day., Myasthenia Gravis Comment: Normal [facility] Main OR Preoperative Recordo n 03-03-2022 Main OR Preoperative Record PreOp Document Type FT Summary Primary Physician: Yoko Leyva Jr., MD Finalized Date/Time: 03/03/22 12:14:22 Pt. Name: TAURUS GARCIA Carrie /Sex: 1945 Male Med Rec #: [id number] Physician: Yoko Leyva Jr., MD Financial #: [id number] Pt. Type: Room/Bed: [place] [address] Admit/Disch: 03/03/22 07:42:53 - Institution: Case Times [...] Signatures Signed By: Zuleyma Martinez 03/03/22 12:14 [facility] Operative Reporton Operative Report Patient: MARGRET GARCIA Age: 76 years Sex: Male : 1945 Associated Diagnoses: None Author: Yoko Leyva Jr., MD Postoperative Information Procedure: Cystoscopy with transurethral resection of bladder tumor, instillation of Mitomycin-C Date/ Time: 03/03/2022 11:30:00 Preoperative Diagnosis: Malignant neoplasm of overlapping sites of bladder (PYA00-NR C67.8, Discharge, Medical). Postoperative Diagnosis: Malignant neoplasm of overlapping sites of bladder (VID11-PN C67.8, Discharge, Medical). Performed by: Autumn Molina [...] and there was no bleeding a 16 Finnish Smith cath was introduced. 40 mg of [...] . Specimens Removed: Bladder tumor. Prosthesis: 16 Finnish Smith catheter. . Estimated Blood Loss: 5 ml. Medications: Mitomycin-C 40 mg intravesical instillation. Complications: None. Anesthesia type: General. Normal [facility] Comment on above: Result Comment: Elec tronically Signed By: Autumn Molina MD, Yoko Hair\.br\Date and Time Signed: 03/03/22 11:36 EDT Outpatient Surgery Discharge Instructionon 03-03-2022 Outpatient Surgery Discharge Instruction [place] [address] Patient Discharge Instructions PERSON INFORMATION Name: TAURUS GARCIA Date of : 1945 Current Date: 03/03/2022 11:56:44 PHYSICIANS Admitting Physician: Autumn Mloina MD, Yoko Hair Discharge Diagnosis: Malignant neoplasm [...] Date Follow up: With: Address: When: [facility], [address] [place] [address] Business (1) Within 2 to 4 weeks Comments: Reviewed pathology report and plan exudative treatment. Call for any problems. Call for followup appointment Pharmacy Information: You may receive a survey from [employer] asking you to rate your care experience. Your feedback is important and will help us understand what we do well and how we can improve the quality of care we provide to you, your loved ones and our community. It?s an honor to serve you. Thank you for choosing [facility] HERE ARE THE MEDICATION CHANGES THAT OCCURRED DURING YOUR HOSPITAL STAY New Medications [facility], [address] [place], [place] [id number], [phone] cephalexin (Keflex 500 mg Cap) 1 Capsules [...] Gravis PATIENT EDUCATION INFORMATION Instructions: Medication Leaflets: [facility] Patient Education - Texton 0 03-03-2022 Patient Education - Text [facility] Outside Recordson 03-01-2022 Outside Records [id number]#1.00CD:127 [facility] Formson 02-28-2022 Forms [id number]#1.00CD:127 [facility] Coding Summary.on 02-24-2022 Coding Summary. CD:[id number]:[id number] Gh0bWw +PGhlYWQ+SZ7LNXXeK28fcAFau S9FD4tKPW4RMSCSJWPDJR9RFJ1 npVU4ZCewZ8XtfgAm DqzziJIdAR55SWo2OJZ1nThsWD votB7yfQUkG6v3FrXhSJ68dX76 GFxlWWGgQbJ4WmFhnkwayHVx C9jjWfQpySRnDyi+PHRhYmxlIH bdQAYgBLdoEOWdUwRzpOqiRN0v Jd2kBSRgQJQiwZivoXOvPcFb b0oqBBVqSGmiPZ9qyBxwO7WazI B9MMIdm0d6Hy64wQQ+PHRkIHN0 oYjrOPixq267RpPnp5ofSNA8 vZRfVBnsMOK3M85ix9P3VUDiEN MdJPB9kLO3jA2wmCjaawypZ6Tx fJYaHbY5QID6iOCtcH6raPva xcyjtF4cKjw+L85DPZ1EJRIAOW 1OGlg6E7LkErihbMB+CM77EAUy ZY53oGQjhPAyt7phhAl7KjHm BUReOOE2bWexBJknc1GfLWTzF8 5pzYKeh3S3LALwxIjzjBNrYjFj wHX2jF6cXVabbwwjz0fyuupb Xwxas5mbnm58sL22U05eAKvdDR OxJXT9IDBiFLIruMekyo7aaK8b Ii8+HJtnf4ubg1eylUf0YwUr UQHquhTssOjzQJY9m9WfBr66U7 VzqApdy2JnGmd5ur99xHUfw6I4 rLS1YYjlWNZxsO9uWMxcWfH7 BAHeXaAudH86yTYhOZdbZv0nxV xbsVkhNE8zRKYhcxtfSWChjH5e ENYmuBVcxVxiTX4fWBQcpzxy t729GbLhJIL7LROreLLiV8ZfhA 9cKpQoHLKmVICkE9FtmHFgTVvp R531PUilFpM0WUDehrQjQ6Mn FHHrcHvrFaF6y1Z0Vh2Tu6Fnxl jbVXL1GNmlQAC8IaL1CmIdWtR8 M6EqOgr8CHVjxNnwDZ9lU2Wm FIVxuwskrjzwwTW6XHIuAGXteR 35tQFhMRizTc1ml5I8a196FIKt FHKteW11Nu1wmJmoVUCxtYLQ kZ3zsxraq5lbdydyEqIcUIYbWB o5MXx1QLVgxRtvEzFnXPC9JbC0 JBP2xMAicR4qdNwoameksX8e Oyc+H41ehU4nMBD3ILG4hbwyRK YracYjIU03QD44F5CnLdshjKOm bGU+DFMhdpZmkYejYQ0aIrLz u0bzz8SxNMyeR5TfEMLvJNbjIe h3MNHiVLQ3tGP4wY6tBCBfNEgp i8H0vUC0S9BlrtKfnk9ue8iv DNVgRQzcM32hqGDdm6L8SLEwrV J4DRCjcZijQnZrqF68Wqm+PGNv wTwpw5AyPvejs8lqg3rxnLw1 UkXuRPBfdvWlgVbyBIN1d3GrEw 63G92qAFwnQMHoZTNiLGZoUQOq lYlawz2vzQ6hKx7+PGNvbCB3 dRL9zH2oPRPiFiI8NTspG725Xf TpwXUlJgziz2rdj6gocIb9OpEk KDEqjsVtaDcmDOU7p6ExOx24 D05dOBltPLZlYLUoCEVjQMSanD gfss3vmA4yVv5+OL3gp0wjkb65 kL16lGH+LULaKSW2cZobYMoz BOGfhM7oLBisGmV7VNFbTqFbpZ 02dYUoMAnyMp3utZphiNqrUK3s GAFamxpao581HlQjl5ltMAZw cIRmJAjsAGS6H69kg5M2GPUxVM HiRCE2qWJ8mG6ryXsxlgrheOLb aNjggyXbtLiiGKdjITloR491 IHRvcDsnPlBhdGllbnQgTmFtZT c4M4EwRlf6AJOeoKbeOZ9otPYt DJtbYq0qxFfbuNywKJ2iCLJs dydjo786UfTfa5olWNXssFLwGV klBSB6I64he9N2UXFrFAWhJPV8 lJX4sX4opWiyegpihDUuwGnx fpZzqGthMRxzBKgyG795WKVivO ulMsIdntSgHTIdwNK2BA30RF13 gNUde8Q9rXU0C7FlTZSgmdvx zcrdjYT6DLPfCGFycU79Sv7lwT jlUk0mCOBtDWR7VULkmAVaH9Tw iH0bLkDuYUKiPEXkB3CwmVOw QJeuK548FXlhDtG2FNDctdJkF2 UpIWPfnScuCkA7i4X8Qs4BE8S7 UA80GS31aGZuh4W7sMP6T8Dh DUYciwqcrozpgXE4YXFyMKOxoA 72Qd7szRmqFf9iCANbZZH9UXGf xYNrY0FpkK6qDrNfITYePDIt Y0EloRKuCAiuP294SThvFwY8SK AlxqIsM7YtBUDglBfmVvE0d6J2 Fd5YPUh3JP08QR56xUWit1U2 dMA8C0NxXTCwtdxweowtmWC8BE JwJKQbrR42Jw4enXsxEn2jKYSu ORH1QQGlmNRgC4VktN9uDpGi MYAwHIDyJ9VnaXJlGAtpB131PG vmPoZ5MEHfbxIvC0PdORPxsJac KxB0g1O7Dq3ELXYjDG61GRX7 xDK9ML13QB35C3DwOozqqURubG U+PHRhYmxlIHdpZHRoPScxMDAl QrKpoEdqCE8pBm1kBVZpCMCd pNbkjXVfMhXhc6miFHJcKSheYK 7kiQvmX9SflIX0SRUhl4f5Bq82 V59lJ3DpdBP+JVRvcEX6rOZ1 mX6hPfYeFuL6QCvrZ605OuGkaN AkPvglp7plc3micRs3ViI9RSKo wwZokDitPIS1j3GaIx52E04w IHdpZHRoPSIxNSUiIHZhbGlnbj 6yeH3bVs6+WXGmcZH3kZH7cR2w VqEkOiX9UYbeG718ToKodXOo Whwks8pre3hxkUa9QfQmYIUwot SlcVmpRYC9k3JrJe60M7XidHng v0QlHph4dn75pOJid5K3wPL0 A7QkGSTgcehspBPnvLdhZP9gKB UguqprCTWpdT0iKNUnM3y0CuUn YgM0TFzsS3PnqgA6QGZdmJVp VDqnFJH6K39we3V0VDEtDKEwKQ M1cOD3eS9ggFdgywravBUovVao xkUetLxfDUuuHBskK045UUOs nAwkUNRglN4zODCsyDAdsYeeED 5nZCPmahdgYqOBH64OJqupA9sV VvqROiAGWB35VT67yPNne7X6 oGL6A0AwQRSxkmzwbsqvsKU0IJ TdXZDhpU76jIOoQEeeMj1aq3F0 k671IMOdBQLmbB07Ta8vmTng FPGleNELlL3tzscfl3eojkvnFk VpRUUdHJv7XKa4OWOevUgyQoPi CIF3HgF3TCF7gGYwaX2qaXde qftcrX5eJcr+QDTdIUMiRLh4VB wvdGQ+PDWhZWP5gAenYSbdUEDb vF7pGDWhY1h0AnVbIjR2INtu K8VbPVBgkhfrLv34sG7tPjNnZs Z3RDdxY4RlriG6EITryZMrBMpa XDT7E30eh2K0OHDsSTViHEV1 zHU5rR2ymCmhvejmxKNouTtqfc KejYlvRHwxPPvaC960LOQugQjg Uqr2LZqwKDXsGE68AX53fCJu b4G1eGN3Y4QqBTFxyfbdowduqV N3XAZjOEWpdZ79rYXaOOtxBi0q w3X3y235GCZrWNDtyN66Zd7m pJrbGUCtyHBHyQ0zcwoyi9ryrs mqEmQjJHUqYGl3JUk7SMFbbLvp LxFnSGS8LpQ1ULQ3wBTgdH2i zJdfezcdzB5gPqh+TWFsZTwvdG Q+FPVsYWY2qZmoKNigNPKkbS0q ZJIfG1f0YdBpOeD8YUydO4Kp NXCcujogWk25xM4sJjBrZaR9PR epD9LkmqE5GBEmdWRzCNahOKG4 Z70xe9G8NRCyRLVuCAO7cYZ2 gQ6thFlqldcxdGWokGgwpdKniV jgWHlgTYuoQ127EOBsmGvpKs16 oKCagBxkunF8Q2EpAynpyDA+ ZP99AQFyWZ24pWYfnGGzw3ftyW x7NkGxVGHyXXQ8aHznQZljt5Tn IUJsL95wgBRoz2A2TVJtgAdv fWVjPrEkiHO6dG5fHCavfndqp3 stwypjSrfhd2cgbp50mV42I66f IHdpZHRoPSIzMCUiIHZhbGln pe1zbF7wHy3+OKPjiSA0lCV1rC 9vJnGiFdO9FVrcK955IyInzCHi Yseju1tic4uuuDe0OuPuULOc pzHqtYppZZH4a6PvIf12O49xHO oiZAJfWSWzIUXhYLDczVfpyp6l xO0bKi0+YG2rm1nlfl21pK18 dHI+IHKlTQB4aYsuMXxnXGZecY 2eVUbiTbX0SQCzBmYmxJ71gNPb ZZxwCu8zoXwouYhdFY9dIDHe imjme656OcJiw7ktBNYmjNPkHJ qlYEX7Y00tl3U5JVTxCNNrOAE7 hKY2tD8zuUpnqtzxtGMwpSve ypHroOueTZxbSBgfI433WPXakZ pzTgTksIKkO3rkdgAPNQ7dIywg dGQ+ZFCaMIO6dPweAMvoSUPt tS2gRICbD7t1SfFxDgT1TQqtJ4 IdtmH3YCOjqINmAOJnyCTLtG1w bctmy0phxillBgUpHSXrUBf8 YTy8VSIbmFglQjHrZGT3SgW8MU F3lPLllB1dzDowplmzvJ1aLws+ RklOOjwvdGQ+THWwDEP7lHua CJvdBGVbdE8mXYWgH2x8HbYnBp I1ADssW0QljmN1CTGsaDRoPVGl sQXTdB3fdrnrj7ktpkndOiQk IHFsUUf4IEs5DDIstNamOoKbVW C2NvU0ONK7cOYtyZ5dxPcydeno fE1vPlf+TVJOOjwvdGQ+PHRk MFX5vKaoQUniHINdsL3eTGSmI5 x2WfXkBfD8IAieX2QvtfZ7GEZn zKExJBZocQOLeU5cxiltn6tw bbxnSnEbNDYvCSd6RDn7LMSkqR bxGaKpPYV5JcK5SJP8fJOeeU5a dZkahaquvZ3lJsf+ZQP6SCC5 MC89MN87M6UxSmbptXQjjBC+PH RhYmxlIHdpZHRoPScxMDAlJyBz rUccVD4mSc4yWHFoQQMlkPeq cHNl (more content not included)... Normal [facility] Outside Recordson 02-22-2022 Outside Records [id number]#[id number]:127 Normal [facility] Outside Records [id number]#1.00CD:127 Normal [facility] Outside Records [id number]#1.00CD:127 Normal [facility] C Urineon 02-19-2022 Bacteria identified Cx [...] Locations R1: This test was performed at: [facility], [address] [place] [address], [address] [place] [address], [facility] Comment on above: Performed By: #### 1 [id number] #### [facility] [address] [place] [address] XR Chest 2 Viewson XR Chest 2 [...] Hassan M.D. Transcribed by: SANDY Technologist: PABLO [facility] Auto Diffon 02-17-2022 Basophils/100 WBC (Bld) 0.6 % Normal 0.0-2.0 [facility] Comment on above: Order Comment: Order Added by Discern Expert. Performed By: #### 2 [id number], [id number], [id number], [id number], [id number] ####[facility] [address] [place] [address] Basophils/Leukocytes Auto (Bld) [Pure # fraction] 0.0 E9/L Normal 0.0-0.2 [facility] Comment on above: Order Comment: Order Added by Discern Expert. Performed By: #### 2 [id number], [id number], [id number], [id number], [id number] ####[address] [address] Eosinophils/100 WBC (Bld) 0.2 % Normal 0.0-8.0 [facility] Comment on above: Order Comment: Order Added by Mary Expert. Performed By: #### 2 533377, 9754645, 01015111, [id number], [id number] ####[facility] [address] [place] [address] Eosinophils/Leukocytes Auto (Bld) [Pure # fraction] 0.0 E9/L Normal 0.0-0.5 [facility] Comment on above: Order Comment: Order Added by Mary Expert. Performed By: #### 2 103617, 3639635, [id number], [id number], 2440310 ####[address] [address] Lymphocytes/100 WBC (Bld) 9.6 % Low 14.0-50.0 [facility] Comment on above: Order Comment: Order Added by Discern Expert. Performed By: #### 2 809334, 9624086, 27140534, [id number], 6324050 ####[facility] [address] [place] [address] Lymphocytes/Leukocytes Auto (Bld) [Pure # fraction] 0.7 E9/L Low 1.0-4.0 [facility] Comment on above: Order Comment: Order Added by Discern Expert. Performed By: #### 2 595542, 7498026, 36488411, [id number], 4104836 ####[address] [place] [address] Monocytes/100 WBC (Bld) 7.0 % Normal 4.0-14.0 [facility] Comment on above: Order Comment: Order Added by Discern Expert. Performed By: #### 2 962873, 1232808, 48335644, 73295777, 6206222 ####[facility] [address] [place] [address] Monocytes/Leukocytes Auto (Bld) [Pure # fraction] 0.5 E9/L Normal 0.2-1.0 [facility] Comment on above: Order Comment: Order Added by Mary Expert. Performed By: #### 2 078278, 6670127, 18178534, [id number], [id number] ####[address] [address] Neutrophils/100 WBC (Bld) 82.6 % High 36.0-75.0 [facility] Comment on above: Order Comment: Order Added by Mary Expert. Performed By: #### 2 342237, 3175271, 23324601, 68513716, 4327407 ####[address] [place] [address] Neutrophils/Leukocytes Auto (Bld) [Pure # fraction] 6.3 E9/L Normal 2.0-7.5 [facility] Comment on above: Order Comment: Order Added by Discern Expert. Performed By: #### 2 746817, 8047839, 82309328, [id number], 6419611 ####[address] [place] [address] BMPon 02-17-2022 Anion gap [Moles/Vol] 11 mmol/L Normal 6-16 [facility] Comment on above: Performed By: #### 2 221938, 9161439, 94213537, 65224255, 3450568 ####[facility] [address] [place] [address] Calcium [Mass/Vol] 9.3 mg/dL Normal 8.9-11.1 [facility] Comment on above: Performed By: #### 2 431594, 6181985, 60517297, 11437966, 6673217 ####[facility] [address] [place] [address] Chloride [Moles/Vol] 104 mmol/L Normal 101-111 [facility] Comment on above: Performed By: #### 2 334751, 3135558, 39170291, 27111873, 4375486 ####[facility] [address] [place] [address] CO2 [Moles/Vol] 27 mmol/L Normal 21-31 [facility] Comment on above: Performed By: #### 2 354986, 7365368, 26567066, 72747192, 0601844 ####[facility] [address] [place] [address] Creatinine [Mass/Vol] 1.4 mg/dL High 0.5-1.3 [facility] Comment on above: Performed By: #### 2 477709, 9593560, 96268978, 05804405, 9113349 ####[facility] [address] [place] [address] Glucose [Mass/Vol] 144 mg/dL Normal 55-199 [facility] Comment on above: Result Comment: If t his glucose result represents a fasting glucose, interpretation should refer to the following reference range: 55-99 mg/dL Performed By: #### 2 872317, 3167270, 04711959, 85310557, 1223294 ####[facility] [address] [facility] [address] Potassium [Moles/Vol] 3.4 mmol/L Low 3.5-5.3 [facility] Comment on above: Performed By: #### 2 945896, 7042168, 23774451, 66552011, 2178111 ####[facility] [address] [place] [address] Sodium [Moles/Vol] 139 mmol/L Normal 135-145 [facility] Comment on above: Performed By: #### 2 850529, 7371717, 28744058, 77210229, 0281853 ####[facility] [address] [place] [address] Urea nitrogen [Mass/Vol] 24 mg/dL High 5-21 [facility] Comment on above: Performed By: #### 2 852579, 6527836, 84738715, 27927948, 1098474 ####[facility] [address] [place] [address] Urea nitrogen/Creatinine [Mass ratio] 17 No Units Normal 10-20 [facility] Comment on above: Performed By: #### 2 443875, 9022943, 18556334, 28891934, 3914007 ####[facility] [address] [place] [address] CBC w/ Auto Diffon Erythrocyte distribution width (RBC) [Ratio] 15.2 % High 10.9-14.2 [facility] Comment on above: Performed By: #### 2 553189, 5423243, 48162246, 07388976, 2794829 ####[address] [place] [address] Hematocrit (Bld) [Volume fraction] 35.8 % Low 37.7-49.0 [facility] Comment on above: Performed By: #### 2 639906, 1472192, 36529786, 15336462, 4450669 ####[facility] [address] [place] [address] Hemoglobin (Bld) [Mass/Vol] 11.7 g/dL Low 13.5-17.5 [facility] Comment on above: Performed By: #### 2 549496, 7687111, 27380993, 10916132, 1161114 ####[facility] [address] [place] [address] MCH (RBC) [Entitic mass] 29.1 pg Normal 27.0-34.0 [facility] Comment on above: Performed By: #### 2 109161, 5831543, 93176607, 32918855, 5785358 ####[address] [address] MCHC (RBC) [Mass/Vol] 32.7 g/dL Normal 31.4-36.0 [facility] Comment on above: Performed By: #### 2 520999, 4776345, 03354676, 32369927, 4007179 ####[address] [address] MCV (RBC) [Entitic vol] 89.1 fL Normal 80.0-100.0 [facility] Comment on above: Performed By: #### 2 531581, 7595396, 92774802, 81579252, 7997379 ####[address] [address] Platelet mean volume (Bld) [Entitic vol] 9.4 fL Normal 6.4-10.8 [facility] Comment on above: Performed By: #### 2 667304, 0538339, 31502674, 34290633, 4672703 ####[address] [address] Platelets (Bld) [#/Vol] 185.0 E9/L Normal 150.0-500. 0 [facility] Comment on above: Performed By: #### 2 292338, 8826733, 76900272, 77906480, 2830841 ####[address] [address] RBC (Bld) [#/Vol] 4.0 E12/L Low 4.3-5.9 [facility] Comment on above: Performed By: #### 2 906834, 4635854, 27502763, 67958890, 4682392 ####[address] [place] [address] WBC corrected for nucl RBC Auto (Bld) [#/Vol] 7.7 E9/L Normal 4.0-11.0 [facility] Comment on above: Performed By: #### 2 491110, 2072657, 03018916, 10856631, 2737779 ####[facility] [address] [place] [address] CHEMISTRYOrdered By: SYSTEM SYSTEM on 02-17-2022 Anion [...] 59 mL/min/1.73 m2 Normal >=59mL/min /1.73 m2 [facility] Chem S GFR/1.73 sq M.predicted among non-blacks MDRD (S/P/Bld) [Vol rate/Area] 49 mL/min/1.73 m2 Low >=59mL/min /1.73 m2 [facility] Chem S Glucose [Mass/Vol] 144 mg/dL Normal [...] for Treatmenton 01-21 Consent for Treatment [id number]:127 Normal [facility] HEMATOLOGYOrdered By: SYSTEM SYSTEM on 02-17-2022 [...] Coag (PPP) [Time] 31.0 second(s) Normal 25.1-36.5 [facility] Comment on above: Result Comment: Hepa rin therapeutic range (represented by Anti-Factor Xa activity of 0.2 - 0.4 U/mL) corresponds to PTT of 56.6 - 109.0 sec. Performed By: #### 2 356720, 0854745, 44320574, 81035462, 5076363 ####[facility] [address] [place] [address] INR Coag (PPP) [Relative time] 1.3 {INR} Invalid Interpretation Code [facility] Comment on above: Result Comment: INR results are specifically intended to assess patients stabilized on long-term Anticoagulation therapy suggested INR?s ?Less Intensive Anticoagulation? 2.0 ? 3.0 Conventional Range 3.0 ? 4.5 Performed By: #### 2 573913, 8074714, 36558791, 23367562, 5723696 ####[facility] [address] [place] [address] PT Coag (PPP) [Time] 15.5 second(s) High 10.2-12.9 [facility] Comment on above: Performed By: #### 2 906216, 0257336, 30199505, 95801838, 5244489 ####[facility] [address] [place] [address] UA With Cult Reflexon 2021 Bacteria LM Ql (Urine sed) SEE COMMENT Invalid Interpretation Code [facility] Comment on above: Result Comment: POSS IBLY PRESENT BUT OBSCURED BY COPIOUS AMOUNT OF RBCS Performed By: #### 1 7846273, 7503881 #### [facility] [address] [place] [address] Bilirubin Ql (U) Negative Normal Negative [facility] Comment on above: Performed By: #### 1 4228506, 9036907 #### [facility] [address] [place] [address] Clarity (U) CLOUDY Abnormal Clear [facility] Comment on above: Performed By: #### 1 1438978, 2520424 #### [facility] [address] [place] [address] Color (U) RED Abnormal Yellow [facility] Comment on above: Performed By: #### 1 1299859, 5128230 #### [facility] [address] [place] [address] Epithelial cells.squamous LM.HPF (Urine sed) [#/Area] See Comment Normal 0-2 [facility] Comment on above: Result Comment: POSS IBLY PRESENT BUT OBSCURED BY COPIOUS AMOUNT OF RBCS Performed By: #### 1 3734028, 1531626 #### [facility] [address] [place] [address] Glucose Test strip (U) [Mass/Vol] Negative Normal Negative [facility] Comment on above: Performed By: #### 1 8121171, 5267610 #### [facility] [address] [place] [address] Hemoglobin Ql (U) 3+ Abnormal Negative [facility] Comment on above: Performed By: #### 1 0763440, 3817430 #### [facility] [address] [place] [address] Ketones (U) [Mass/Vol] TRACE Invalid Interpretation Code Negative [facility] Comment on above: Performed By: #### 1 2104043, 1953940 #### [facility] [address] [place] [address] [place].plasma/[place] .RBC (Bld) [Mass ratio] >75 Abnormal 0-3 [facility] Comment on above: Performed By: #### 1 7102622, 2778492 #### [facility] [address] [place] [address] Nitrite Ql (U) Positive Abnormal Negative [facility] Comment on above: Performed By: #### 1 2361570, 9919403 #### [facility] [address] [place] [address] pH (U) 7.0 [pH] Invalid Interpretation Code 5.0-9.0 [facility] Comment on above: Performed By: #### 1 1294954, 3058333 #### [facility] [address] [place] [address] Protein (U) [Mass/Vol] 3+ Abnormal Negative [facility] Comment on above: Performed By: #### 1 8094344, 7830146 #### [facility] [address] [place], [place] [address] Specific gravity (U) [Rel density] 1.015 Invalid Interpretation Code 1.005-1.03 0 [facility] Comment on above: Performed By: #### 1 7224049, 1273414 #### [facility] [address] [place] [address] Type of Urine collection method Clean Catch Normal [facility] Comment on above: Performed By: #### 1 7169509, 7628075 #### [facility] [address] [place], [place] [address] Urobilinogen Qn (U) 1.0 {Terry'U}/dL Normal 0.0-1.0 [facility] Comment on above: Performed By: #### 1 6183675, 8865555 #### [facility] [address] [place] [address] WBC Auto Ql (U) 1+ Abnormal Negative [facility] Comment on above: Performed By: #### 1 8649192, 8163249 #### [facility] [address] [place] [address] WBC LM.HPF (Urine sed) [#/Area] See Comment Normal 0-5 [facility] Comment on above: Result Comment: POSS IBLY PRESENT BUT OBSCURED BY COPIOUS AMOUNT OF RBCS Performed By: #### 1 7550910, 1419379 #### [facility] [address] [place] [address] URINALYSISOrdered By: Luis Enrique wiley on 02-17-2022 [...] Interpretation Code Negative [facility] UA Auto SS [place].plasma/[place] .RBC (Bld) [Mass ratio] >75 /HPF Invalid [...] [facility] UA Auto SS Urobilinogen Qn (U) 1.6316549 {Trery'U}/dL Normal 0.0 - 1.0 EU/dL [facility] UA [...] [Vol rate/Area] 59 mL/min/1.73 m2 Normal >=59 [facility] Comment on above: Order Comment: Order added by Discern Expert. Result Comment: eGFR is race adjusted. AA=. Performed By: #### 2 895992, 9444852, 68470921, 30630293, 4723220 ####[facility] [address] [place] [address] GFR/1.73 sq M.predicted among non-blacks MDRD (S/P/Bld) [Vol rate/Area] 49 mL/min/1.73 m2 Low >=59 [facility] Comment on above: Order Comment: Order added by Discern Expert. Result Comment: Landfill Grader swathi kidney disease could be indicated at eGFR's of less than 60 mL/min/1.73m2. Kidney failure is indicated at less than 15 mL/min/1.73m2. Performed By: #### 2 987672, 7391364, 04502731, 42335929, 4999679 ####[address] [place] [address] XR Spine Lumbar 4+ Views*on 02-10-2022 XR [...] by JACKLYN KOO on 02/11/2022 0917 Normal [facility] Support Services Specialist Ambulatory Visit Summaryon 0 02-01-2022 Ambulatory [...] infections. ? (more content not included)... Normal [facility] Patient Educationon 02-02-20 Patient Education Oncology [...] Follow these instructions at home: ? Take xrev-mst-jnjayrl and prescription medicines only as told by [...] important. Where to find more information ? [employer]: www.cancer.org ? National Cancer Horicon (NCI): www.cancer.gov Contact a health care provider [...] 08/09/2004 Document Revised: 07/20/2018 Document Reviewed: 07/11/2017 [employer] Patient Education ? 2019 [employer]. 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 He had a TUR of his bladder tumor on 01/13/2022. Is here today for his first postop visit. [facility] Staff Pascual is here today [...] q12hr, # 30 tab(s), Refills(s) 0, Pharmacy: [facility] Urology Procedure (more content not included)... Normal [facility] Comment on above: Result Comment: Elec tronically Signed By: Yoko Leyva Jr., MD\.br\Date and Time Signed: 02/01/22 11:54 EDT\.br\Electronically Co-Signed By: Jolly Justice\.br\Date and Time Co-Signed: 02/01/22 11:50 EDT Operative Reporton 2 Operative Report [id number]:127 [facility] Coding Summary.on 01-25-2022 Coding Summary. CD:[id number]:[id number] Gh0bWw +PGhlYWQ+PH2UGNNkE12yjNZgj B0TQ1eWJT2AFXPHBFICPP2ARQ6 ulFI4HZmoG7SxmgTe WqvnrDFeKI35ICo6AZC1wBysZI vieR5ibNNeA2z1LaHmGN02tN51 ZUliSCPcHdM3BrFvlcgjkQEx Y1weIwWzpNXcEal+PHRhYmxlIH yvPXZcVSrbTHOzImKnbWhgXW6m Dw8kNLXoEZHibGywbFRjNdOu v2hiWTAuYZuwVG7bnEfoC0XbxX P4RADyj0d0Iy22nSA+PHRkIHN0 kQmxRJxve837FoKqy1fmKHH8 tLFlFEibNHU6J79xp3N2TBUmQW CgKGI6kRE5aM4kaXgmntebO8Wj kRKkJpX1FBA5iTDrkH0fnZim jzzkyY2zIpk+M52WBC1XVQSKPV 5XKnv7W7FlBqdnySE+VS05PNYm CX20dDMpzPYrn1mcfKy8OvSg LNWhTSU7fCmdZCoad9WxZYOkH7 2cvRQil6E7LAIvpMlyaMEmUiRw pUK2jT2nURwloidqa8vvahfy Daumt3uklf45gE33T15dLVuyYX PmWIZ4AZDgXNGduSqefk9mbS1s Ii8+JBkea7odp6tkbGy1PbMu EOExxjGriGjlAIL2q9PtLd80N8 YfuYoms7EeMnr2eg26tQHil0O4 gSY2ALgzDQKirZ5kRYxsLhF5 MKSfYuAlyV47lHUhRVbfRl2naQ yzaIvlFE6qKYNsznokPMBjpO8i TAZviCLcfRpsSW8kHKKmcjwn x185XaQmBBK7MDPdzOTzC2TukX 6dBvBxZWOoPCGnC6AxhGLnFTwr Y050OTxpRuB8DJBckaWwJ3Aw EDHlxKhgEkU5w4X5Ec7Pu5Gwtr ohVMY6ZFtrRBU8ZyY8MfOzRdI5 J5LrXne6XYJdhEtsMQ9gW8Rk OVSnzzevzkjruIE7DJLbDBBvmX 34wZCePSiqQq4nr9X8l261LDTt NVRzkF23Lz5ljQvxXJZpdJRL wJ3azfnly1dgcjpwZhDdNXQnHN n8OIt5SDPawJeoMtZbEDF2CtO9 PQE2sHWlcN6yfEouzjggrN1d Oyc+H42yzB5mVWR2DGT3rlcpWX VicvFnDT37IU88Z5UcNahglSTz bGU+LLWzpuTdwCbqTB1zJmRt z0xia8RnDQdyL7VfCCElUNsnZl o3GLSmRTE5rZJ4wE1bTOKnISod f6U5kWD0L3FgnvOips6zr6ge KQYiNLvzR67gbGEvp8O9VGZtiB I1YOKnpSgyLuUmfU21Qnx+PGNv gDfmq5HbAhstv5rpc4vxqSe0 ZiOwAKDirjAobJzfIKZ7q4GzIv 11B18cTPbmXTVyKITgXCQbYMJx kVzwls9zcP2yHr3+PGNvbCB3 qQH9cU8kYLHxOcT7RHcdF188Vx HnwJZwSgmgg4ozg7ynnTl8GaSc HETtxpBkbSykXMS4i6CsFd06 K53aNEauRDPlYAApUYFuKCYdjE pqis4byD0cXz3+BN1yf2rrwe15 sL97iUF+MKKtXPR8dNilOWgs YEZqmY3jVGyxYkJ8NYVwDvDhtE 25eLYgICisHh8upWkepBvdPL2w TNMslyumi809NkJfr3gcXWEz sACxHYcxJJI9N90pn8Y9UQCkIM EhYEN7aJN5iG3xxGtrtwjauFYc uWqlchGgoKamNFwtFAwlO522 IHRvcDsnPlBhdGllbnQgTmFtZT y7E7JiPor6ATWizWugZU9ukTEn FLwuHh4lnChguFqwPI5eHQNb xhozz585FtIhf2saVGTgkVGpFQ ibBNQ0C77eu5M2ZULgPBFxXAL6 xCE6eX0raOniqjmehNCqvDhr ujCylUkwMOwvTPdeW995VVDuvA kgVoVdzsZvHRTghGY3FU91WB43 mHIyz5D8iNL5M1RcUGEephuo zpxalKI4MHIhMBAmoI09Rj4aiL iuQu5lOZXzXIH2QNDebJVtB5Xo yW6bCbWsNSMfQFIbP4CcmHEw GSgjT116JZknPaF1POPhfmEbR2 AqFZJodCxoMwC6l0D4Vg8AU7S5 UK26XR60wWUgs0P3dQL1H3Np VKSmbgpmmtzevHN1SBMzHSYeeN 78Mv4upCqoAl1oZWJnQXY0XFGv iCXvE5RdtK7dLhUsFLZjQAIt M5NikPNtCGyuG567XWbfFcG1TZ VpeeUpO2AvCJMqwIauOvQ6d5J9 Az8ZCTy9YZ11RJ98kEWlm8B4 aGP4D5JdMUBtfxddowzsnJG1DW QxKHEzdR34Fe2qyLirFv5bOGHz NCQ9AKCzrTZzT8IoiM8jDbPv TKKpCKCrL7XcvPEfUQzwE247UO xqSfI0FGLkdhSeT9DuQBXhdAtm DvK8g8N0Qb9LPYYkWK04ZPT0 iIQ5EX30BB35L2WkYcjxaOWrrJ U+PHRhYmxlIHdpZHRoPScxMDAl FeAaoKniUJ4yYg3gGQAoITQh wMqtvRFnWsIio4omQRMfUFyeYX 4oqHrzG9DfaZR9QWSbq8k3Xt30 X80cN0HkgWZ+VFPysKD2kHU2 qS2dVcIzZtU9JLuvR709DjPmcP UkUpcvh1qhp0ighRj6KkV8CWQl tlQhuTsoPSU1y1ArYz99F79i IHdpZHRoPSIxNSUiIHZhbGlnbj 9nvV5zKg3+ZBYmdQI0qOW1kY5o FcPyGnP5RStkU039BoJyqREx Ttjoq9ivv7qgdAx9QjTgIFUtfn EvgZfgNAB6v0MtIa50U7CfgZlr w7IfRcp2ym24dVPdu6I2jFL4 G2QwEYLsypktqBTfpTabQI1sRL YmgdvsUZHwaY4cORIeN4m1LfPd KeG0CFicT2TmkkC4TXKrlAYw EUwiTLJ2H93ai7L6VCTlZRItUC P6rNS0xQ0tvClxihbgtBCetBte wbIwhEnyFRzzLTzgQ537JLRe nWyxPSKmtF1cTUEhoYFgmWpwYO 6sKKNbzjswTxHIS73XYmdaV3sN IkrVWeTLCZ25YN35qCKad3C8 mSL5W8EkZCLpwgumaiqaxWB1HI FkJEAreR02uLHtKZqyIh7ws2S7 z005XWCjMXYozA05Pf1cbMvq UKKzfNLMzV5qjhqkt1ucobejJd BtQLDgIMm2ATk8MQVjcUwlGoMe OOG7MlS0APX3sGCmyT0leAdc xofesR7rZcj+FRQsMAOxODz7TJ wvdGQ+QSGbQMA3fVolQVjvKZPl aA4jLLSqY9d3HlYlNwX3MUky C6QwRACopblkIr38dN9fLyHpQz N6FZvpA4JmwdM9AXLggYRhLMkg VWR5A55hw0R0NWYhUTUxMXC9 pGZ6fF3wuUzkmsrirOEhwAgezr RgoCqeFEliOQsgW918NZYhbWwk Czd6WRhdBEUlNC46WJ56aAIy o4C1vUO5P4HeNPVgxmlveunzyI R3IQGvQULyfH79pJDnICwgSd1e c3V7t458STYxCEFueL24Vn1c uNkhHOUsgVEScO6nmcqmw4bcxo lmUnKmZYYfFXy0NVx4PRPljOfp RzToUVS8VgM5KDX6kRWbjS1w eOvfcorgxW6jZae+TWFsZTwvdG Q+CAHdNBT6lPpyTOupHWTkkI1q DRIqY6h8ObXzZkW1FYtuH4Pj RAIudfumGk97uE1lHhVaOiK8HF umX0DxueQ2OSUqqASbXGpcXWL4 D36kl0K8QPBeHIVcQHJ7sNL5 uG8hqAouyhfidLXadElofoGbgO lgGSnlRDosO590OXCdwTysDbkn WmNLwd0nZL9kVbkoxID+PC90 hv65S0UoPyxfVaq3KCWxREI8uT I5tD9kTJUdFYcmv6X4iCL1S4Aw ylEzov7jf2tqXXIbTGlnY46h ePGhq4W9XNPyaJA1BYThpVlwDn WkeK72Lly+MCGahOeey0BvJmya e3xuu9cmlBg9MyFsKNIbgaSl hOypVKF2s0LdJg96H26rDCrtTV DiUNDbOLUnAQRdwYvubf8niF8a Ii8+OFFbtIZ3qWH5eO2bYyVp GrB9TIxyH267LwArdDIgQrvdx6 zuo8kmrIz6RnKfKZOwdqXzgNec WJO9i6DgRd81F5FajEpcu7Vh Hsg2sh14lLPxu6C7fLJ7R3OgQB ZvuggueYYlwJfwBT7fAZUlhyrt JPThqT9xJURyN2g8KwXvYzG1 VDfzO2UccuC2MCDboOXxXPGtxC ISgO7lltumu3zkezhzBpNtHNKd PMq5MTu6BNOgnQirCyQhWTP2 XcT3BUR3aPQptQ4kyRomjmiwwX 9wOyc+ZHv1n2njmOXuWM9bkFV8 OD74ST60lGRjl1H4wML2J5Rb URPbfyjmyjuqsVN1SQCqAUIqhB 56Ji4xtLccQx0rQZNyCPH6YAVd vMHtN1YguL8hDaIgCPLjHPKq S9OirVUcCLyhF271RSfbJvF9RX HjxpGeB9OwLTQjkEcfWaK0w8M3 Io5ZMG29MU53BI09rTByi3A1 fAF1L9EnILYocecqmjlkhBN3FS SlXIWqwX77Sv2hmWonWx7yJRId PSY3TRNrfNRiT5CmaQ1eGpWa HAPyELLsX6UjiESpLPqtF339PK xuPiS1XDEdrjHmQ8TzMHRapNxv OfH4n5K4Iu7ZOq92XV16BC56 qDYsn7U3bSW2E0IvVQXwcvopgm aprBV6EPAqGORujH86Ss9oiKyl Gu1qNGMlOWL5DSUbcUYsG6Ab aG3yGcYlEALuJXJrD0IztSAhHP tyH816OWjuHmL9ROUhjcMpW4Kf KWWknRtuDvS6v4M0Al0DMPun ggy7D2MbDpvitMV+QS39KNSdHH 07mOVdiQMbf0oasYz6AvOwOSNl TTG6uLylGGjqf8FhROQnP12a bGFw (more content not included)... Normal [facility] Reminderson 01-24-2022 Reminders - From: Miller Shirley MA To: EU - Clinical; Sent: 01/21/2022 14:39:52 EDT Show up: 01/24/2022 08:00:00 EDT Subject: Ambulatory Reminder Reminder/Recall urine culture addressed. NICK Normal [facility] C Urineon 01-23-2022 Bacteria identified Cx [...] Locations R1: This test was performed at: Float: [facility], [address] [place] [address], [facility] , , [facility] Comment on above: Performed By: #### 2 [id number] ####[place] [address] Ambulatory Visit Summaryon 0 01-21-2022 Ambulatory Visit Summary TAURUS GARCIA :1945 Visit Date:01/21/2022 Ambulatory Visit Instructions Your Diagnosis Urgency of urination Tests Performed Urnls Dip Stick Auto w/o Microscopy POC 35699 Your Care Team Attending Physician - Yoko [...] MD, Yoko Hair Where: [facility] Pathology Noteon 01-19-2022 Pathology Note [id number]:127 [facility] Ambulatory Visit Summaryon 0 01-18-2022 Ambulatory [...] sleep apnea, adult Pulmonary embolism Radiculopathy Normal [facility] Lab Reportson 01-11-2022 Lab Reports [id number]:127 Normal [facility] Lab Reportson 01-10-2022 Lab Reports [id number]:127 Normal [facility] PROF CHEM 8 (BAS METB)on Anion gap [Moles/Vol] 12.8 mmol/L Normal [facility] Comment on above: Performed By: #### B MP #### [facility] [address] [address] [address] Chao Garcia Calcium [Mass/Vol] 9.4 mg/dL Normal 8.5-10.1 [facility] Comment on above: Performed By: #### B MP #### [facility] [address] [address] [address] Chao Garcia Chloride [Moles/Vol] 107 mmol/L Normal 98-107 [facility] Comment on above: Performed By: #### B MP #### [facility] [address] [address] [address] Chao Garcia CO2 [Moles/Vol] 27.6 mmol/L Normal 21.0-32.0 [facility] Comment on above: Performed By: #### B MP #### [facility] [address] [address] [address] Chao Garcia Creatinine [Mass/Vol] 1.47 mg/dL Critically high 0.70-1.30 [facility] Comment on above: Performed By: #### B MP #### [facility] [address] [address] [address] Chao Garcia EGFR-AF TUNISIAN 56 mL/min/1.73m2 Critically low >=60 [facility] Comment on above: Performed By: #### B MP #### [facility] [address] [address] [address] Chao Garcia EGFR-NON AF TUNISIAN 46 mL/min/1.73m2 Critically low >=60 [facility] Comment on above: Performed By: #### B MP #### [facility] [address] [address] [address] Chao Garcia Glucose [Mass/Vol] 142 mg/dL Critically high 74-106 [facility] Comment on above: Performed By: #### B MP #### [facility] [address] [address] [address] Chao Garcia Potassium [Moles/Vol] 3.4 mmol/L Critically low 3.5-5.1 [facility] Comment on above: Performed By: #### B MP #### [facility] [address] [address] [address] Chao Garcia Sodium [Moles/Vol] 144 mmol/L Normal 136-145 [facility] Comment on above: Performed By: #### B MP #### [facility] [address] [address] [address] Chao Garcia Urea nitrogen [Mass/Vol] 33.0 mg/dL Critically high 7.0-18.0 [facility] Comment on above: Performed By: #### B MP #### [facility] [address] [address] [address] Chao Garcia Urea nitrogen/Creatinine [Mass ratio] 22.4 mg/mg Normal [facility] Comment on above: Performed By: #### B MP #### [facility] [address] [address] [address] Chao Garcia Consent for Procedure/Surger [facility] 01-04-2022 Consent for Procedure/Surgery [id number]:12 7 Normal [facility] Ambulatory Visit Summaryon 0 12-27-2021 Ambulatory [...] Where: [facility] [address], [place] [address]- Medications What How Much When Instructions Unchanged [...] serious c (more content not included)... Normal [facility] Patient Educationon 12-28-19 Patient Education Urology [...] these instructions at home: Medicines ? Take ohft-wae-olycowf and prescription medicines only as told by [...] the blood stops without treatment. ? Take yypr-aen-pzeqowq and prescription medicines only as told by your health care provider. ? Drink enough fluid to keep your urine clear or pale yellow. This information is not intended to replace advice given to you by your health care provider. Make sure you discuss any questions you have with your health care provider. Document Released: 08/07/2006 Document Revised: 01/01/2020 Document Reviewed: 09/09/2017 [employer] Patient Education ? 2019 [employer]. Normal [facility] Urology Office/Clinic Noteon 12-27-2021 Urology Office/Clinic [...] urine The Urethra was dilated to: _ Finnish with sounds. Specimens Removed: Voided specimen sent [...] on delayed axial image 228. Ordered: Cystourethroscopy [id number] Urology Procedure Order 2. Gross hematuria (R31.0: Gross hematuria) Cysto with cytology done in office today. CT from 4/27/22 shows multiple hydronephrosis hypodensities. The larger lesions [...] Full informe (more content not included)... Normal [facility] Comment on above: Result Comment: Elec tronically Signed By: Autumn Molina MD, Yoko Hair\.br\Date and Time Signed: 12/27/21 13:27 EDT\.br\Electronically Co-Signed By: Elvin Hawthorne\.br\Date and Time Co-Signed: 12/27/21 13:19 EDT Lab Reportson 12-16-2021 Lab Reports [id number]#[id number]:127 Normal [facility] RAD - CT Reporton 12-16-2021 RAD - CT Report [id number]:[id number] Normal [facility] CREATININEon 12-15-2021 Creatinine [Mass/Vol] 1.52 mg/dL Critically high 0.70-1.[address] [facility] Comment on above: Performed By: #### C RAFA #### [facility] [address] [address] [address] Chao Garcia EGFR-AF TUNISIAN 54 mL/min/1.73m2 Critically low >=[address] [facility] Comment on above: Performed By: #### C RAFA #### [facility] [address] [address] [address] Chao Garcia EGFR-NON AF TUNISIAN 45 mL/min/1.73m2 Critically low >=[address] [facility] Comment on above: Performed By: #### C RAFA #### [facility] [address] [place], [place] [address] ABD/PELV W CONon [...] by: JORDAN RUTLEDGE Date: 2021-12-15 13:10 Normal [facility] Formson 12-15-2021 Forms [id number]:[id number] Normal [facility] UroVysion Fish and Urine Cyt o ([facility])on 12-13-2021 UVFISH & UC Diagnosis Info Invalid Interpretation Code [facility] Comment on above: Result Comment: A:Ur [...] on: 12/13/2021 13:24:10 Performed By: #### 1 [id number] ####[facility] [address] [place] [address] Patient Educationon 12-08-19 22 Patient Education Urology Hematuria, Adult Hematuria is [...] these instructions at home: Medicines ? Take bawi-qan-kvewmeo and prescription medicines only as told by [...] the blood stops without treatment. ? Take bmlr-yqh-nmkupwa and prescription medicines only as told by [...] Document Reviewed: 09/09/2017 Elsevier Patient Education ? 2019 [employer] Normal [facility] UroVysion Fish and Urine Cyt o ([facility])on 12-07-2021 UVUC Method of Extraction Voided Normal [facility] Comment on above: Performed By: #### 1 [id number] ####[facility] [address] [facility] [place] [address] UVUC Number of Jars 1 Invalid Interpretation Code [facility] Comment on above: Performed By: #### 1 [id number] ####[facility] [address] [facility] [place] [address] UVUC Specimen Urine Normal [facility] Comment on above: Performed By: #### 1 [id number] ####[facility] [address] [facility] [place] [address] UVUC Type of Service Global Normal [facility] Comment on above: Performed By: #### 1 [id number] ####[facility] [address] [facility] [place] [address] Urology Office/Clinic Noteon 12-07-2021 Urology Office/Clinic Note Chief Complaint Gross hematuria with moderate bladder outlet obstruction symptoms. Patient is on Eliquis. [facility] Staff This is a 76 [...] procedure, # 2 tab(s), Refills(s) 0, Pharmacy: [id number] Follow-up With When Contact Information Autumn Molina MD, Yoko Hair, [facility] [address], [place] [phone] Additional Instructions: Patient Education Hematuria, Adult I, Margaret Mitchell, personally scribed for Dr. Leyva on 12/07/2021 10:01:53. . Documentation recorded by the scri (more content not included)... Normal [facility] Comment on above: Result Comment: [...] MG Oral TabletTake 1 tablet daily Pyridostigmine [place] 60 MG Oral TabletTAKE 1 TABLET [...] Recorded: 31Aug2021 01:21PM Heart Rate74, L Radial Bfsqbsfd282, LUE, Sitting Wbsuolgho21, LUE, Sitting Height5 ft 9 in Eeyqyq286 lb BMI Trecmzowgj21.62 kg/m2 BSA Calculated2.58 Tobacco Useb) No Fall [...] Basophils (Bld) [#/Vol] 0.05 10*3/uL Normal 0.00-0.20 [facility] Specialist Comment on above: Performed By: #### C MP, LIPD, TSH, CBCAD, FT4 #### [facility] [address], [place] [id number] Basophils/100 WBC (Bld) 0.7 % Normal [facility] Specialist Comment on above: Performed By: #### C MP, LIPD, TSH, CBCAD, FT4 #### [facility] [address], [place] [id number] Eosinophils (Bld) [#/Vol] 0.15 10*3/uL Normal 0.02-0.50 [facility] Support Services Specialist Comment on above: Performed By: #### C MP, LIPD, TSH, CBCAD, FT4 #### [facility] [address], [place] [id number] Eosinophils/100 WBC (Bld) 2.0 % Normal [facility] Support Services Specialist Comment on above: Performed By: #### C MP, LIPD, TSH, CBCAD, FT4 #### [facility] [address], [place] [id number] Erythrocyte distribution width (RBC) [Ratio] 14.6 % Normal 11.0-15.0 [facility] Specialist Comment on above: Performed By: #### C MP, LIPD, TSH, CBCAD, FT4 #### [facility] [address], [place] [id number] Hematocrit (Bld) [Volume fraction] 43.5 % Normal 38.5-50.0 [facility] Specialist Comment on above: Performed By: #### C MP, LIPD, TSH, CBCAD, FT4 #### [facility] [address], [place] [id number] Hemoglobin (Bld) [Mass/Vol] 13.8 g/dL Normal 13.0-17.1 [facility] Specialist Comment on above: Performed By: #### C MP, LIPD, TSH, CBCAD, FT4 #### [facility] [address], [place] [id number] Lymphocytes (Bld) [#/Vol] 2.5 10*3/uL Normal 0.9-3.9 [facility] Specialist Comment on above: Performed By: #### C MP, LIPD, TSH, CBCAD, FT4 #### [facility] [address], [place] [id number] Lymphocytes/100 WBC (Bld) 32.3 % Normal [facility] Specialist Comment on above: Performed By: #### C MP, LIPD, TSH, CBCAD, FT4 #### [facility] [address], [place] [id number] MCH (RBC) [Entitic mass] 30.3 pg Normal 27.0-33.0 [facility] Specialist Comment on above: Performed By: #### C MP, LIPD, TSH, CBCAD, FT4 #### [facility] [address], [place] [id number] MCHC (RBC) [Mass/Vol] 31.7 g/dL Low 32.0-36.0 [facility] Comment on above: Performed By: #### C MP, LIPD, TSH, CBCAD, FT4 #### [facility] [address], [place] [id number] MCV (RBC) [Entitic vol] 95 fL Normal 80-100 [facility] Specialist Comment on above: Performed By: #### C MP, LIPD, TSH, CBCAD, FT4 #### [facility] [address], [place] [id number] Monocytes (Bld) [#/Vol] 0.9 10*3/uL Normal 0.2-0.9 [facility] Comment on above: Performed By: #### C MP, LIPD, TSH, CBCAD, FT4 #### [facility] [address], [place] [id number] Monocytes/100 WBC (Bld) 11.5 % Normal [facility] Comment on above: Performed By: #### C MP, LIPD, TSH, CBCAD, FT4 #### [facility] [address], [place] [id number] Neutrophils (Bld) [#/Vol] 4.1 10*3/uL Normal 1.5-7.8 [facility] Comment on above: Performed By: #### C MP, LIPD, TSH, CBCAD, FT4 #### [facility] [address], [place] [id number] Neutrophils/100 WBC (Bld) 53.0 % Normal [facility] Comment on above: Performed By: #### C MP, LIPD, TSH, CBCAD, FT4 #### [facility] [address], [place] [id number] Platelet mean volume (Bld) [Entitic vol] 10.70 fL Normal 7.50-12.50 [facility] Comment on above: Performed By: #### C MP, LIPD, TSH, CBCAD, FT4 #### [facility] [address], [place] [id number] Platelets (Bld) [#/Vol] 208 10*3/uL Normal 140-400 [facility] Specialist Comment on above: Performed By: #### C MP, LIPD, TSH, CBCAD, FT4 #### [facility] [address], [place] [id number] RBC (Bld) [#/Vol] 4.56 10*6/uL Normal 4.20-5.80 [facility] Comment on above: Performed By: #### C MP, LIPD, TSH, CBCAD, FT4 #### [facility] [address], [place] [id number] RDW-SD 51.6 fL High 37.0-50.0 [facility] Specialist Comment on above: Performed By: #### C MP, LIPD, TSH, CBCAD, FT4 #### [facility] [address], [place] [id number] WBC (Bld) [#/Vol] 7.7 10*3/uL Normal 3.8-11.0 Jena rn [place] [facility] Comment on above: Performed By: #### C MP, LIPD, TSH, CBCAD, FT4 #### [facility] [address], [place] [id number] Comprehensive Metabolic Pane [facility] 08-18-2021 Albumin [Mass/Vol] 4.2 g/dL Normal 3.6-5.1 Jena romero [place] [facility] Comment on above: Performed By: #### C MP, LIPD, TSH, CBCAD, FT4 #### [facility] [address], [place] [id number] Albumin/Globulin [Mass ratio] 2.0 {ratio} Normal 1.0-2.5 [facility] Specialist Comment on above: Performed By: #### C MP, LIPD, TSH, CBCAD, FT4 #### [facility] [address], [place] [id number] ALP [Catalytic activity/Vol] 69 U/L Normal 40-129 [facility] Specialist Comment on above: Performed By: #### C MP, LIPD, TSH, CBCAD, FT4 #### [facility] [address], [place] [id number] ALT [Catalytic activity/Vol] 22 U/L Normal 9-46 [facility] Specialist Comment on above: Result Comment: 07/21 Female reference range changed. Performed By: #### C MP, LIPD, TSH, CBCAD, FT4 #### [facility] [address], [place] [id number] Anion gap [Moles/Vol] 18 mmol/L Normal 12-20 [facility] Specialist Comment on above: Result Comment: Effe ctive 08/26/2019 reference range changed. Performed By: #### C MP, LIPD, TSH, CBCAD, FT4 #### [facility] [address], [place] [id number] AST [Catalytic activity/Vol] 21 U/L Normal 10-40 [facility] Comment on above: Performed By: #### C MP, LIPD, TSH, CBCAD, FT4 #### [facility] [address], [place] [id number] Bilirubin [Mass/Vol] 0.60 mg/dL Normal 0.30-1.20 [facility] Comment on above: Performed By: #### C MP, LIPD, TSH, CBCAD, FT4 #### [facility] [address], [place] [id number] BUN/CREA 20 Ratio Normal 6-22 [facility] Comment on above: Performed By: #### C MP, LIPD, TSH, CBCAD, FT4 #### [facility] [address], [place] [id number] Calcium [Mass/Vol] 9.3 mg/dL Normal 8.6-10.2 [facility] Comment on above: Performed By: #### C MP, LIPD, TSH, CBCAD, FT4 #### [facility] [address], [place] [id number] Chloride [Moles/Vol] 104 mmol/L Normal 98-107 [facility] Comment on above: Performed By: #### C MP, LIPD, TSH, CBCAD, FT4 #### [facility] [address], [place] [id number] CO2 [Moles/Vol] 25 mmol/L Normal 20-31 [facility] Comment on above: Performed By: #### C MP, LIPD, TSH, CBCAD, FT4 #### [facility] [address], [place] [id number] Creatinine [Mass/Vol] 1.2 mg/dL Normal 0.7-1.4 [facility] Comment on above: Performed By: #### C MP, LIPD, TSH, CBCAD, FT4 #### [facility] [address], [place] [id number] eGFRAA 72 mL/min/1.73m2 Normal >60 [facility] Comment on above: Performed By: #### C MP, LIPD, TSH, CBCAD, FT4 #### [facility] [address] [place] [id number] eGFRNAA 59 mL/min/1.73m2 Low >60 [facility] Specialist Comment on above: Performed By: #### C MP, LIPD, TSH, CBCAD, FT4 #### [facility] [address] [place] [id number] Globulin (S) [Mass/Vol] 2.1 g/dL Normal 1.9-3.7 [facility] Specialist Comment on above: Performed By: #### C MP, LIPD, TSH, CBCAD, FT4 #### [facility] [address], [place] [id number] Glucose [Mass/Vol] 132 mg/dL High 65-99 [facility] Support Services Specialist Comment on above: Result Comment: For FASTING Glucose --- ADA reference ranges: Normal 65-99 mg/dl Prediabetes 100-125 Diabetes >/= 126 Performed By: #### C MP, LIPD, TSH, CBCAD, FT4 #### [facility] [address], [place] [id number] Potassium [Moles/Vol] 3.4 mmol/L Low 3.5-5.5 [facility] Comment on above: Performed By: #### C MP, LIPD, TSH, CBCAD, FT4 #### [facility] [address] [facility] [place] [id number] Protein [Mass/Vol] 6.3 g/dL Normal 6.1-8.1 [facility] Support Services Specialist Comment on above: Performed By: #### C MP, LIPD, TSH, CBCAD, FT4 #### [facility] [address] [facility] [id number] Sodium [Moles/Vol] 144 mmol/L Normal 135-146 [facility] Support Services Specialist Comment on above: Performed By: #### C MP, LIPD, TSH, CBCAD, FT4 #### [facility] [address] [facility] [id number] Urea nitrogen [Mass/Vol] 23 mg/dL Normal 7-25 [facility] Support Services Specialist Comment on above: Performed By: #### C MP, LIPD, TSH, CBCAD, FT4 #### [facility] [address], [place] [id number] Free T4on 08-18-2021 Free T4 [Mass/Vol] 1.26 ng/dL Normal 0.80-1.80 [facility] Comment on above: Performed By: #### C MP, LIPD, TSH, CBCAD, FT4 #### [facility] [address], [place] [id number] Lipid Panelon 08-18-2021 Cholesterol [Mass/Vol] 170 mg/dL Normal 125-200 [facility] Comment on above: Result Comment: Low risk < 200mg/dL Borderline risk 201-239 mg/dl High risk > or equal to 240 Performed By: #### C MP, LIPD, TSH, CBCAD, FT4 #### [facility] [address], [place] [id number] Cholesterol in HDL [Mass/Vol] 70 mg/dL Normal >40 [facility] Specialist Comment on above: Result Comment: High Cardiovascular Risk HDL <40 mg/dL Low Cardiovascular Risk HDL > or equal to 60 mg/dl Performed By: #### C MP, LIPD, TSH, CBCAD, FT4 #### [facility] [address], [place] [id number] Cholesterol in LDL [Mass/Vol] 78 mg/dL Normal [facility] Comment on above: Result Comment: LDL ATP III CLASSIFICATION LDL less than 100 mg/dl Optimal LDL 100-129 mg/dl Near or above optimal LDL 130-159 Borderline high LDL 160-189 High LDL greater than 189 mg/dl Very High Performed By: #### C MP, LIPD, TSH, CBCAD, FT4 #### [facility] [address], [place] [id number] Cholesterol in VLDL [Mass/Vol] 22 mg/dL Normal [facility] Comment on above: Performed By: #### C MP, LIPD, TSH, CBCAD, FT4 #### [facility] [address], [place] [id number] Cholesterol.total/Chol esterol in HDL [Mass ratio] 2 {ratio} Normal [place] [facility] Comment on above: Performed By: #### C MP, LIPD, TSH, CBCAD, FT4 #### [facility] [address], [place] [id number] Triglyceride [Mass/Vol] 110 mg/dL Normal 30-150 [facility] Specialist Comment on above: Result Comment: TRIG ATPIII CLASSIFICATIONS TRIG less than 150 mg/dl Normal TRIG 150-199 mg/dl Borderline High TRIG 200-500 mg/dl High TRIG greather than 500 mg/dl Very High Performed By: #### C MP, LIPD, TSH, CBCAD, FT4 #### [facility] [address], [place] [id number] PSA SCREEN (MEDICARE)on 07-22 TPSA 1.270 ng/mL Normal <4.000 [facility] Support [facility] Specialist Comment on above: Result Comment: PSA Test Method: ECLIA/Racquel e 601 Performed By: #### P SA #### [facility] [address], [place] [id number] TSHon 08-18-2021 TSH 4.190 uIU/mL Normal 0.400-4.50 0 [facility] Services Specialist Comment on above: Performed By: #### C MP, LIPD, TSH, CBCAD, FT4 #### [facility] [address], [place] [id number] Covid-19 PCR ([facility])on 03-23 SARS-CoV-2 (COVID-19) RNA JAYDE+probe Ql (Unsp spec) Detected Critically abnormal NOT DETECTED [facility] Comment on above: Result Comment: This test is not yet approved or cleared by the [place] FDA. When there are no FDA-approved or cleared tests available, and other criteria are met, FDA can make tests available under an emergency access mechanism called an Emergency Use Authorization (EUA). The EUA for this test is supported by the [place] of Health and Human Service's (HHS's) declaration [...] longer be used). Performed By: #### [facility] #### [facility] [address] [place] [address] Jalyn Noble US JO ANN DOP LEG [...] by: JORDAN RUTLEDGE Date: 2021-02-09 16:35 Normal [facility] Vital Signs Date Time Vital Sign Value Performing Clinician Facility 05-22-2025 14:33-0400 Body height 172.7 cm Leela Bocanegra [employer] Work Phone: [facility] 05-22-2025 14:33-0400 Body mass index (BMI) [Ratio] 45.31 kg/m2 Leela Bocanegra [employer] Work Phone: [facility] 05-22-2025 14:33-0400 Body weight 135.17 kg Leela Bocanegra [employer] Work Phone: [facility] 05-22-2025 14:33-0400 Diastolic blood pressure 64 mm[Hg] Leela Bocanegra [employer] Work Phone: [facility] 05-22-2025 14:33-0400 Heart rate 80 /min Leela Bocanegra [employer] SAM[employer] Work Phone: [facility] 05-22-2025 14:33-0400 Respiratory rate 17 /min Leela Bocanegra [employer] SAM[employer] Work Phone: [facility] 05-22-2025 14:33-0400 SaO2% (BldA) [Mass fraction] 94 % Leela Bocanegra [employer] Work Phone: [facility] 05-22-2025 14:33-0400 Systolic blood pressure 136 mm[Hg] Leela Bocanegra NP Work Phone: [facility] 05-05-2025 13:34-0400 Body weight 137.43 kg Komal Schaffer II Work Phone: [facility] 05-05-2025 13:34-0400 Diastolic blood pressure 98 mm[Hg] Komal Schaffer II Work Phone: [facility] 05-05-2025 13:34-0400 Heart rate 105 /min Komal Schaffer II Work Phone: [facility] 05-05-2025 13:34-0400 SaO2% (BldA) [Mass fraction] 94 % Komal Schaffer II Work Phone: [facility] 05-05-2025 13:34-0400 Systolic blood pressure 176 mm[Hg] Komal Schaffer II Work Phone: [facility] 04-24-2025 14:34-0400 Body height 172.7 cm Real Og DPM Work Phone: [facility] 04-24-2025 14:34-0400 Body mass index (BMI) [Ratio] 47.14 kg/m2 Real Og DPM Work Phone: [facility] 04-24-2025 14:34-0400 Body weight 140.62 kg Real Earle DPM Work Phone: [facility] 04-24-2025 14:34-0400 Respiratory rate 16 /min Real Earle DPM Work Phone: [facility] 04-01-2025 11:37-0400 Body height 172.7 cm Leela Bocanegra [employer] SAM[employer]ER Work Phone: [facility] 04-01-2025 11:37-0400 Body mass index (BMI) [Ratio] 47.14 kg/m2 Leela Bocanegra [employer] Work Phone: [facility] 04-01-2025 11:37-0400 Body weight 140.62 kg Leela Bocanegra [employer]ER Work Phone: [facility] 04-01-2025 11:37-0400 Diastolic blood pressure 68 mm[Hg] Leela Catalanvely [employer] SAM[employer]ER Work Phone: [facility] 04-01-2025 11:37-0400 Heart rate 80 /min Leela Daljit [employer]ER Work Phone: [facility] 04-01-2025 11:37-0400 Respiratory rate 17 /min Leela Daljit [employer] SAM[employer]ER Work Phone: [facility] 04-01-2025 11:37-0400 SaO2% (BldA) [Mass fraction] 94 % Leela [place] [employer] Work Phone: [facility] 04-01-2025 11:37-0400 Systolic blood pressure 138 mm[Hg] Leela Daljit AIR SAMPLER Work Phone: [facility] 03-18-2025 10:09-0400 Body height 172.72 cm Komal Schaffer II Work Phone: [facility] 03-18-2025 10:09-0400 Body mass index (BMI) [Ratio] 46.7 kg/m2 Komal Schaffer II Work Phone: [facility] 03-18-2025 10:09-0400 Body weight 139.4 kg Komal Schaffer II Work Phone: [facility] 02-18-2025 11:45-0400 Body height 172.7 cm Leela Catalanvely [employer] SAM[employer]ER Work Phone: [facility] 02-18-2025 11:45-0400 Body mass index (BMI) [Ratio] 46.38 kg/m2 Leela [place] [employer] Work Phone: [facility] 02-18-2025 11:45-0400 Body weight 138.35 kg Leela Catalanvely [employer] SAM[employer]ER Work Phone: [facility] 02-18-2025 11:45-0400 Diastolic blood pressure 78 mm[Hg] Leela Bocanegra [employer] SAM[employer]ER Work Phone: [facility] 02-18-2025 11:45-0400 Heart rate 84 /min Leela Bocanegra [employer] SAM[employer]ER Work Phone: [facility] 02-18-2025 11:45-0400 Respiratory rate 18 /min Leela Bocanegra [employer] SAM[employer]ER Work Phone: [facility] 02-18-2025 11:45-0400 SaO2% (BldA) [Mass fraction] 94 % Leelashelley Bocanegra AIR SAMPLER Work Phone: [facility] 02-18-2025 11:45-0400 Systolic blood pressure 124 mm[Hg] Leela Daljit AIR SAMPLER Work Phone: [facility] 02-14-2025 15:29-0400 Body temperature 98.6 [degF] Komal Schaffer II Work Phone: [facility] 02-14-2025 15:29-0400 Diastolic blood pressure 64 mm[Hg] Komal Schaffer II Work Phone: [facility] 02-14-2025 15:29-0400 Heart rate 90 /min Komal Schaffer II Work Phone: [facility] 02-14-2025 15:29-0400 Respiratory rate 16 /min Komal Schaffer II Work Phone: [facility] 02-14-2025 15:29-0400 SaO2% (BldA) [Mass fraction] 95 % Komal Schaffer II Work Phone: [facility] 02-14-2025 15:29-0400 Systolic blood pressure 128 mm[Hg] Komal Schaffer II Work Phone: [facility] 02-14-2025 05:44-0400 Body weight 136.6 kg Komal Schaffer II Work Phone: [facility] 02-13-2025 20:43-0400 Body height 172.72 cm Komal Schaffer II Work Phone: [facility] 02-13-2025 20:19-0400 Body temperature 98.9 [degF] Komal Schaffer II Work Phone: [facility] 02-13-2025 20:19-0400 Diastolic blood pressure 80 mm[Hg] Komal Schaffer II Work Phone: [facility] 02-13-2025 20:19-0400 Heart rate 85 /min Komal Schaffer II Work Phone: [facility] 02-13-2025 20:19-0400 Respiratory rate 21 /min Komal Schaffer II Work Phone: [facility] 02-13-2025 20:19-0400 SaO2% (BldA) [Mass fraction] 95 % Komal Schaffer II Work Phone: [facility] 02-13-2025 20:19-0400 Systolic blood pressure 178 mm[Hg] Komal Schaffer II Work Phone: [facility] 02-13-2025 09:25-0400 Body height 172.72 cm Komal Schaffer II Work Phone: [facility] 02-13-2025 09:25-0400 Body weight 138.34 kg Komal Schaffer II Work Phone: [facility] 01-30-2025 15:04-0400 Body height 172.7 cm Real Og DPM Work Phone: [facility] 01-30-2025 15:04-0400 Body mass index (BMI) [Ratio] 45.92 kg/m2 Real Og DPM Work Phone: [facility] 01-30-2025 15:04-0400 Body weight 136.99 kg Real Og DPM Work Phone: [facility] 01-30-2025 15:04-0400 Respiratory rate 18 /min Real Og DPM Work Phone: [facility] 01-15-2025 09:59-0400 Body height 172.7 cm Willy Leyva APRN-DIRECTOR EMPLOYMENT Work Phone: [facility] 01-15-2025 09:59-0400 Body mass index (BMI) [Ratio] 46.83 kg/m2 Willy Leyva MEDICAL STAFF SPECIALIST-DIRECTOR EMPLOYMENT Work Phone: [facility] 01-15-2025 09:59-0400 Body weight 139.71 kg Willy Leyva MEDICAL STAFF SPECIALIST-DIRECTOR EMPLOYMENT Work Phone: [facility] 01-15-2025 09:59-0400 Diastolic blood pressure 56 mm[Hg] Willy Leyva MEDICAL STAFF SPECIALIST-DIRECTOR EMPLOYMENT Work Phone: [facility] 01-15-2025 09:59-0400 Heart rate 84 /min Willy Leyva MEDICAL STAFF SPECIALIST-DIRECTOR EMPLOYMENT Work Phone: [facility] 01-15-2025 09:59-0400 Systolic blood pressure 122 mm[Hg] Willy Leyva MEDICAL STAFF SPECIALIST-DIRECTOR EMPLOYMENT Work Phone: [facility] 01-06-2025 12:33-0400 Body mass index (BMI) [Ratio] 46.04 kg/m2 Christopher Chip DO Work Phone: [facility] 01-06-2025 12:33-0400 Body weight 137.35 kg Christopher Chip DO Work Phone: [facility] 01-06-2025 12:33-0400 Diastolic blood pressure 84 mm[Hg] Christopher Chip DO Work Phone: [facility] 01-06-2025 12:33-0400 Heart rate 106 /min Christopher Chip DO Work Phone: [facility] 01-06-2025 12:33-0400 SaO2% (BldA) [Mass fraction] 94 % Christopher Chip DO Work Phone: [facility] 01-06-2025 12:33-0400 Systolic blood pressure 150 mm[Hg] Christopher Chip DO Work Phone: [facility] 01-02-2025 16:24-0400 Body height 172.7 cm Real Og DPM Work Phone: [facility] 01-02-2025 16:24-0400 Body mass index (BMI) [Ratio] 46.38 kg/m2 Real Brown DPM Work Phone: [facility] 01-02-2025 16:24-0400 Body weight 138.35 kg Real Brown DPM Work Phone: [facility] 01-02-2025 16:24-0400 Respiratory rate 18 /min Real Brown DPM Work Phone: [facility] 12-12-2024 13:44-0400 Body height 172.7 cm Real Brown DPM Work Phone: [facility] 12-12-2024 13:44-0400 Body mass index (BMI) [Ratio] 46.38 kg/m2 Real Brown DPM Work Phone: [facility] 12-12-2024 13:44-0400 Body weight 138.35 kg Real Brown DPM Work Phone: [facility] 12-12-2024 13:44-0400 Respiratory rate 16 /min Real Brown DPM Work Phone: [facility] 12-05-2024 14:41-0400 Body height 172.7 cm Real Brown DPM Work Phone: [facility] 12-05-2024 14:41-0400 Body mass index (BMI) [Ratio] 46.38 kg/m2 Real Brown DPM Work Phone: [facility] 12-05-2024 14:41-0400 Body weight 138.35 kg Real Brown DPM Work Phone: [facility] 12-05-2024 14:41-0400 Respiratory rate 18 /min Real Brown DPM Work Phone: [facility] 12-05-2024 13:59-0400 Body height 172.7 cm Leela Bocanegra NP Work Phone: [facility] 12-05-2024 13:59-0400 Body mass index (BMI) [Ratio] 46.44 kg/m2 Leela Bocanegra [employer] Work Phone: [facility] 12-05-2024 13:59-0400 Body weight 138.53 kg Leela Bocanegra [employer] Work Phone: [facility] 12-05-2024 13:59-0400 Diastolic blood pressure 78 mm[Hg] Leela Bocanegra [employer] Work Phone: [facility] 12-05-2024 13:59-0400 Heart rate 95 /min Leela Bocanegra [employer] Work Phone: [facility] 12-05-2024 13:59-0400 Respiratory rate 17 /min Leela Bocanegra [employer] Work Phone: [facility] 12-05-2024 13:59-0400 SaO2% (BldA) [Mass fraction] 95 % Leela Bocanegra [employer] Work Phone: [facility] 12-05-2024 13:59-0400 Systolic blood pressure 132 mm[Hg] Leela Bocanegra [employer] Work Phone: [facility] 11-21-2024 14:45-0400 Body height 172.7 cm Real Og DPM Work Phone: [facility] 11-21-2024 14:45-0400 Body mass index (BMI) [Ratio] 48.05 kg/m2 Real Og DPM Work Phone: [facility] 11-21-2024 14:45-0400 Body weight 143.34 kg Real Og DPM Work Phone: [facility] 11-21-2024 14:45-0400 Respiratory rate 18 /min Real Og DPM Work Phone: [facility] 11-04-2024 11:39-0400 Body height 172.7 cm Willy Leyva MEDICAL STAFF SPECIALIST-DIRECTOR EMPLOYMENT Work Phone: [facility] 11-04-2024 11:39-0400 Body mass index (BMI) [Ratio] 47.74 kg/m2 Willy Leyva MEDICAL STAFF SPECIALIST-DIRECTOR EMPLOYMENT Work Phone: [facility] 11-04-2024 11:39-0400 Body weight 142.43 kg Willy Leyva MEDICAL STAFF SPECIALIST-DIRECTOR EMPLOYMENT Work Phone: [facility] 11-04-2024 11:39-0400 Diastolic blood pressure 84 mm[Hg] Willy Leyva MEDICAL STAFF SPECIALIST-DIRECTOR EMPLOYMENT Work Phone: [facility] 11-04-2024 11:39-0400 Heart rate 64 /min Willy Leyva MEDICAL STAFF SPECIALIST-DIRECTOR EMPLOYMENT Work Phone: [facility] 11-04-2024 11:39-0400 Systolic blood pressure 166 mm[Hg] Willy Leyva MEDICAL STAFF SPECIALIST-DIRECTOR EMPLOYMENT Work Phone: [facility] 10-11-2024 15:02-0500 Body height 172.7 cm [facility] 10-11-2024 15:02-0500 Body mass index (BMI) [Ratio] 47.14 kg/m2 [facility]-11-[facility] 15:02-0500 Body weight 140.62 kg [facility] 10-11-2024 15:02-0500 Diastolic blood pressure 80 mm[Hg] [facility] 10-11-2024 15:02-0500 Heart rate 63 /min [facility] 10-11-2024 15:02-0500 Systolic blood pressure 148 mm[Hg] [facility] 10-09-2024 10:03-0500 Body height 172.7 cm Leela Bocanegra [employer] SAM[employer] Work Phone: [facility] 10-09-2024 10:03-0500 Body mass index (BMI) [Ratio] 47.35 kg/m2 Leela Bocanegra [employer] Work Phone: [facility] 10-09-2024 10:03-0500 Body weight 141.25 kg Leela Bocanegra [employer] Work Phone: [facility] 10-09-2024 10:03-0500 Diastolic blood pressure 82 mm[Hg] Leela Bocanegra [employer] Work Phone: [facility] 10-09-2024 10:03-0500 Heart rate 46 /min Leela Bocanegra [employer] Work Phone: [facility] 10-09-2024 10:03-0500 Respiratory rate 17 /min Leela Bocanegra [employer] Work Phone: [facility] 10-09-2024 10:03-0500 SaO2% (BldA) [Mass fraction] 96 % Leela Bocanegra [employer] Work Phone: [facility] 10-09-2024 10:03-0500 Systolic blood pressure 186 mm[Hg] Leela Bocanegra [employer] Work Phone: [facility] 09-17-2024 14:47-0500 Body height 172.7 cm Aide Hemmer PA Work Phone: [facility] 09-17-2024 14:47-0500 Body mass index (BMI) [Ratio] 47.59 kg/m2 Aide Hemmer PA Work Phone: [facility] 09-17-2024 14:47-0500 Body weight 141.98 kg Aide Hemmer PA Work Phone: [facility] 09-17-2024 14:47-0500 Diastolic blood pressure 62 mm[Hg] Aide Hemmer PA Work Phone: [facility] 09-17-2024 14:47-0500 Heart rate 83 /min Aide Hemmer PA Work Phone: [facility] 09-17-2024 14:47-0500 Respiratory rate 18 /min Aide Hemmer PA Work Phone: [facility] 09-17-2024 14:47-0500 SaO2% (BldA) [Mass fraction] 93 % Aide Hemmer PA Work Phone: [facility] 09-17-2024 14:47-0500 Systolic blood pressure 106 mm[Hg] Aide Hemmer PA Work Phone: [facility] 09-13-2024 11:19-0500 Body temperature 98.5 [degF] Komal Schaffer II Work Phone: [facility] 09-13-2024 11:19-0500 Diastolic blood pressure 65 mm[Hg] Komal Schaffer II Work Phone: [facility] 09-13-2024 11:19-0500 Heart rate 76 /min Komal Schaffer II Work Phone: [facility] 09-13-2024 11:19-0500 Respiratory rate 16 /min Komal Schaffer II Work Phone: [facility] 09-13-2024 11:19-0500 SaO2% (BldA) [Mass fraction] 94 % Komal Schaffer II Work Phone: [facility] 09-13-2024 11:19-0500 Systolic blood pressure 147 mm[Hg] Komal Schaffer II Work Phone: [facility] 09-13-2024 06:00-0500 Body weight 137.5 kg Komal Schaffer II Work Phone: [facility] 09-12-2024 15:45-0500 Body height 172.72 cm Komal Schaffer II Work Phone: [facility] 09-12-2024 08:26-0500 Inhaled oxygen flow rate 2 L/min Komal Schaffer II Work Phone: [facility] 09-11-2024 16:44-0500 Diastolic blood pressure 81 mm[Hg] Komal Schaffer II Work Phone: [facility] 09-11-2024 16:44-0500 Heart rate 66 /min Komal Schaffer II Work Phone: [facility] 09-11-2024 16:44-0500 Inhaled oxygen flow rate 2 L/min Komal Schaffer II Work Phone: [facility] 09-11-2024 16:44-0500 Respiratory rate 22 /min Komal Schaffer II Work Phone: [facility] 09-11-2024 16:44-0500 SaO2% (BldA) [Mass fraction] 96 % Komal Schaffer II Work Phone: [facility] 09-11-2024 16:44-0500 Systolic blood pressure 196 mm[Hg] Komal Schaffer II Work Phone: [facility] 09-11-2024 09:52-0500 Body height 172.72 cm Komal Schaffer II Work Phone: [facility] 09-11-2024 09:52-0500 Body temperature 98.2 [degF] Komal Schaffer II Work Phone: [facility] 09-11-2024 09:52-0500 Body weight 139.7 kg Komal Schaffer II Work Phone: [facility] 07-31-2024 12:00-0500 Body temperature 98.2 [degF] Komal Schaffer II Work Phone: [facility] 07-31-2024 12:00-0500 Diastolic blood pressure 62 mm[Hg] Komal Schaffer II Work Phone: [facility] 07-31-2024 12:00-0500 Heart rate 60 /min Komal Schaffer II Work Phone: [facility] 07-31-2024 12:00-0500 Respiratory rate 16 /min Komal Schaffer II Work Phone: [facility] 07-31-2024 12:00-0500 SaO2% (BldA) [Mass fraction] 95 % Komal Schaffer II Work Phone: [facility] 07-31-2024 12:00-0500 Systolic blood pressure 128 mm[Hg] Komal Schaffer II Work Phone: [facility] 07-31-2024 05:53-0500 Body weight 136.3 kg Komal Schaffer II Work Phone: [facility] 07-28-2024 18:13-0500 Body height 172.72 cm Komal Schaffer II Work Phone: [facility] 07-24-2024 08:30-0500 Body height 172.7 cm Leela Bocanegra [employer] SAM[employer] Work Phone: [facility] 07-24-2024 08:30-0500 Body mass index (BMI) [Ratio] 46.5 kg/m2 Leela Catalanvely [employer] Work Phone: [facility] 07-24-2024 08:30-0500 Body weight 138.71 kg Leela [place] [employer] Work Phone: [facility] 07-24-2024 08:30-0500 Diastolic blood pressure 82 mm[Hg] Leela Bocanegra [employer] Work Phone: [facility] 07-24-2024 08:30-0500 Heart rate 63 /min Leela Bocanegra [employer] Work Phone: [facility] 07-24-2024 08:30-0500 Respiratory rate 18 /min Leela Bocanegra [employer] Work Phone: [facility] 07-24-2024 08:30-0500 SaO2% (BldA) [Mass fraction] 93 % Leela Bocanegra [employer] Work Phone: [facility] 07-24-2024 08:30-0500 Systolic blood pressure 122 mm[Hg] Leela Bocanegra [employer] Work Phone: [facility] 07-12-2024 12:00-0500 Body temperature 98.6 [degF] Komal Schaffer II Work Phone: [facility] 07-12-2024 12:00-0500 Diastolic blood pressure 79 mm[Hg] Komal Schaffer II Work Phone: [facility] 07-12-2024 12:00-0500 Heart rate 76 /min Komal Schaffer II Work Phone: [facility] 07-12-2024 12:00-0500 Respiratory rate 20 /min Komal Schaffer II Work Phone: [facility] 07-12-2024 12:00-0500 SaO2% (BldA) [Mass fraction] 99 % Komal Schaffer II Work Phone: [facility] 07-12-2024 12:00-0500 Systolic blood pressure 171 mm[Hg] Komal Schaffer II Work Phone: [facility] 07-12-2024 06:00-0500 Body weight 137.4 kg Komal Schaffer II Work Phone: [facility] 07-10-2024 14:42-0500 Body height 172.72 cm Komal Schaffer II Work Phone: [facility] 07-10-2024 08:28-0500 Inhaled oxygen flow rate 2 L/min Komal Schaffer II Work Phone: [facility] 07-09-2024 20:09-0500 Diastolic blood pressure 74 mm[Hg] Komal Schaffer II Work Phone: [facility] 07-09-2024 20:09-0500 Heart rate 57 /min Komal Schaffer II Work Phone: [facility] 07-09-2024 20:09-0500 Respiratory rate 18 /min Komal Schaffer II Work Phone: [facility] 07-09-2024 20:09-0500 SaO2% (BldA) [Mass fraction] 95 % Komal Schaffer II Work Phone: [facility] 07-09-2024 20:09-0500 Systolic blood pressure 168 mm[Hg] Komal Scahffer II Work Phone: [facility] 07-09-2024 18:53-0500 Body height 172.72 cm Komal Schaffer II Work Phone: [facility] 07-09-2024 18:53-0500 Body weight 139.7 kg Komal Schaffer II Work Phone: [facility] 07-09-2024 15:52-0500 Body temperature 98.9 [degF] Kmoal Schaffer II Work Phone: [facility] 07-04-2024 05:48-0500 Diastolic blood pressure 75 mm[Hg] Komal Schaffer II Work Phone: [facility] 07-04-2024 05:48-0500 Systolic blood pressure 133 mm[Hg] Komal Schaffer II Work Phone: [facility] 07-04-2024 05:05-0500 Body weight 140.3 kg Komal Schaffer II Work Phone: [facility] 07-04-2024 05:00-0500 Body temperature 97.4 [degF] Komal Schaffer II Work Phone: [facility] 07-04-2024 05:00-0500 Heart rate 64 /min Komal Schaffer II Work Phone: [facility] 07-04-2024 05:00-0500 Respiratory rate 16 /min Komal Schaffer II Work Phone: [facility] 07-04-2024 05:00-0500 SaO2% (BldA) [Mass fraction] 95 % Komal Schaffer II Work Phone: [facility] 07-03-2024 07:59-0500 Body height 172.72 cm Komal Schaffer II Work Phone: [facility] 06-22-2024 11:25-0400 Diastolic blood pressure 71 mm[Hg] II Komal Schaffer Work Phone: [facility] 06-22-2024 11:25-0400 Heart rate 54 /min II Komal Schaffer Work Phone: [facility] 06-22-2024 11:25-0400 Respiratory rate 18 /min II Komalescobar Schaffer Work Phone: [facility] 06-22-2024 11:25-0400 SaO2% (BldA) [Mass fraction] 97 % II Komal Schaffer Work Phone: [facility] 06-22-2024 11:25-0400 Systolic blood pressure 112 mm[Hg] II Komal Schaffer Work Phone: [facility] 06-22-2024 08:00-0400 Body temperature 97.4 [degF] II Komal Schaffer Work Phone: [facility] 06-22-2024 05:35-0400 Body weight 140.6 kg II Komal Schaffer Work Phone: [facility] 06-20-2024 14:56-0400 Body height 172.72 cm II Komal Schaffer Work Phone: [facility] 06-19-2024 23:54-0400 Inhaled oxygen concentration 21 % II Komal Schaffer Work Phone: [facility] 06-19-2024 14:41-0400 Body height 172.72 cm II Komal Schaffer Work Phone: [facility] 06-19-2024 14:41-0400 Body temperature 98 [degF] II Komal Schaffer Work Phone: [facility] 06-19-2024 14:41-0400 Body weight 143.6 kg II Komal Schaffer Work Phone: [facility] 06-19-2024 14:41-0400 Diastolic blood pressure 74 mm[Hg] II Komal Schaffer Work Phone: [facility] 06-19-2024 14:41-0400 Heart rate 59 /min II Komal Schaffer Work Phone: [facility] 06-19-2024 14:41-0400 Respiratory rate 16 /min II Komal Schaffer Work Phone: [facility] 06-19-2024 14:41-0400 SaO2% (BldA) [Mass fraction] 96 % II Komal Schaffer Work Phone: [facility] 06-19-2024 14:41-0400 Systolic blood pressure 175 mm[Hg] II Komal Schaffer Work Phone: [facility] 06-13-2024 14:10-0400 Body height 172.7 cm Real Og DPM Work Phone: [facility] 06-13-2024 14:10-0400 Body mass index (BMI) [Ratio] 49.42 kg/m2 Real Og DPM Work Phone: [facility] 06-13-2024 14:10-0400 Body weight 147.42 kg Real Og DPM Work Phone: [facility] 06-13-2024 14:10-0400 Diastolic blood pressure 79 mm[Hg] Real Og DPM Work Phone: [facility] 06-13-2024 14:10-0400 Heart rate 84 /min Real Og DPM Work Phone: [facility] 06-13-2024 14:10-0400 Systolic blood pressure 126 mm[Hg] Real Og DPM Work Phone: [facility] 05-27-2024 12:55-0400 Body mass index (BMI) [Ratio] 49.42 kg/m2 Christopher Chip DO Work Phone: [facility] 05-27-2024 12:55-0400 Body weight 147.42 kg Christopher Chip DO Work Phone: [facility] 05-27-2024 12:55-0400 Diastolic blood pressure 85 mm[Hg] Christopher Chip DO Work Phone: [facility] 05-27-2024 12:55-0400 Heart rate 75 /min Christopher Chip DO Work Phone: [facility] 05-27-2024 12:55-0400 SaO2% (BldA) [Mass fraction] 90 % Christopher Chip DO Work Phone: [facility] 05-27-2024 12:55-0400 Systolic blood pressure 137 mm[Hg] Christopher Chip DO Work Phone: [facility] 02-12-2024 17:05-0400 Diastolic blood pressure 69 mm[Hg] II Komal Schaffer Work Phone: [facility] 02-12-2024 17:05-0400 Heart rate 53 /min II Komal Schaffer Work Phone: [facility] 02-12-2024 17:05-0400 Respiratory rate 22 /min II Komal Schaffer Work Phone: [facility] 02-12-2024 17:05-0400 SaO2% (BldA) [Mass fraction] 98 % II Komal Schaffer Work Phone: [facility] 02-12-2024 17:05-0400 Systolic blood pressure 156 mm[Hg] II Komal Schaffer Work Phone: [facility] 02-12-2024 13:33-0400 Body height 172.72 cm II Komal Schaffer Work Phone: [facility] 02-12-2024 13:33-0400 Body temperature 98.1 [degF] II Komal Schaffer Work Phone: [facility] 02-12-2024 13:33-0400 Body weight 142.3 kg II Komal Schaffer Work Phone: [facility] 10-05-2023 13:16-0500 Body height 177.8 cm Kmoal Schaffer MD Work Phone: [facility] 10-05-2023 13:16-0500 Body mass index (BMI) [Ratio] 45.2 kg/m2 Komal Schaffer MD Work Phone: [facility] 10-05-2023 13:16-0500 Body weight 142.88 kg Komal Schaffer MD Work Phone: [facility] 10-05-2023 13:16-0500 Diastolic blood pressure 82 mm[Hg] Komal Schaffer MD Work Phone: [facility] 10-05-2023 13:16-0500 Heart rate 58 /min Komal Schaffer MD Work Phone: [facility] 10-05-2023 13:16-0500 SaO2% (BldA) [Mass fraction] 96 % Komal Schaffer MD Work Phone: [facility] 10-05-2023 13:16-0500 Systolic blood pressure 134 mm[Hg] Komal Schaffer MD Work Phone: [facility] 09-20-2023 12:13-0500 Body height 172.7 cm Baltazar Hoover DO Work Phone: [facility] 09-20-2023 12:13-0500 Body mass index (BMI) [Ratio] 47.59 kg/m2 Baltazar Hoover DO Work Phone: [facility] 09-20-2023 12:130500 Body weight 141.98 kg Baltazar Hoover DO Work Phone: [facility] 09-20-2023 12:13-0500 Diastolic blood pressure 74 mm[Hg] Baltazar Hoover DO Work Phone: [facility] 09-20-2023 12:13-0500 Heart rate 53 /min Baltazar Hoover DO Work Phone: [facility] 09-20-2023 12:13-0500 Systolic blood pressure 130 mm[Hg] Baltazar Hoover DO Work Phone: [facility] 06-10-2023 05:00-0400 Body temperature 97.2 [degF] II Komal Schaffer Work Phone: [facility] 06-10-2023 05:00-0400 Diastolic blood pressure 70 mm[Hg] II Komal Schaffer Work Phone: [facility] 06-10-2023 05:00-0400 Heart rate 57 /min GEOVANY Schaffer Work Phone: [facility] 06-10-2023 05:00-0400 Respiratory rate 18 /min II Komal Schaffer Work Phone: [facility] 06-10-2023 05:00-0400 SaO2% (BldA) [Mass fraction] 95 % II Komal Schaffer Work Phone: [facility] 06-10-2023 05:00-0400 Systolic blood pressure 145 mm[Hg] II Komal Schaffer Work Phone: [facility] 06-06-2023 12:31-0400 Body height 172.72 cm II Komal Schaffer Work Phone: [facility] 06-04-2023 06:00-0400 Body weight 138.9 kg II Komal Schaffer Work Phone: [facility] 05-25-2023 00:00-0400 Inhaled oxygen flow rate 2 L/min II Komal Schaffer Work Phone: [facility] 05-21-2023 13:47-0400 Body temperature 98.4 [degF] II Komal Schaffer Work Phone: [facility] 05-21-2023 13:47-0400 Diastolic blood pressure 82 mm[Hg] II Komal Schaffer Work Phone: [facility] 05-21-2023 13:47-0400 Heart rate 60 /min II Komal Schaffer Work Phone: [facility] 05-21-2023 13:47-0400 Inhaled oxygen flow rate 2 L/min II Komal Schaffer Work Phone: [facility] 05-21-2023 13:47-0400 Respiratory rate 20 /min II Komal Schaffer Work Phone: [facility] 05-21-2023 13:47-0400 SaO2% (BldA) [Mass fraction] 94 % II Komal Schaffer Work Phone: [facility] 05-21-2023 13:47-0400 Systolic blood pressure 145 mm[Hg] II Komal Schaffer Work Phone: [facility] 05-21-2023 05:35-0400 Body weight 145 kg II Komal Schaffer Work Phone: [facility] 05-18-2023 12:18-0400 Body height 175.26 cm II Komal Schaffer Work Phone: [facility] 05-15-2023 18:00-0400 Inhaled oxygen concentration 4 % II Komal Schaffer Work Phone: [facility] 10-18-2022 08:30-0500 Body temperature 97.59 [degF] Honorio Vuong MD Work Phone: [facility] 10-18-2022 08:30-0500 Diastolic blood pressure 81 mm[Hg] Honorio Vuong MD Work Phone: [facility] 10-18-2022 08:30-0500 Heart rate 75 /min Honorio Vuong MD Work Phone: [facility] 10-18-2022 08:30-0500 Respiratory rate 20 /min Honorio Vuong MD Work Phone: [facility] 10-18-2022 08:30-0500 SaO2% (BldA) [Mass fraction] 95 % Honorio Vuong MD Work Phone: [facility] 10-18-2022 08:30-0500 Systolic blood pressure 150 mm[Hg] Honorio Vuong MD Work Phone: [facility] 10-17-2022 06:00-0500 Body mass index (BMI) [Ratio] 48.42 kg/m2 Honorio Vuong MD Work Phone: [facility] 10-17-2022 06:00-0500 Body weight 144.44 kg Honorio Vuong MD Work Phone: [facility] 10-15-2022 19:51-0500 Body height 172.7 cm Honorio Vuong MD Work Phone: [facility] 09-07-2022 11:23-0500 Body height 172.72 cm Willy Leyva MEDICAL STAFF SPECIALIST-DIRECTOR EMPLOYMENT Work Phone: [facility] DO Work Phone: 09-07-2022 11:23-0500 Body mass index (BMI) [Ratio] 49.72 kg/m2 Willy Grijalvakwasi Leyva MEDICAL STAFF SPECIALIST-DIRECTOR EMPLOYMENT Work Phone: [facility] [facility] DO Work Phone: 09-07-2022 11:23-0500 Body surface area Derived from formula 2.52 m2 Willy Talon Leyva MEDICAL STAFF SPECIALIST-DIRECTOR EMPLOYMENT Work Phone: [facility] [address] DO Work Phone: 09-07-2022 11:23-0500 Body weight 148.33 kg Willy Grijalvakwasi Leyva MEDICAL STAFF SPECIALIST-DIRECTOR EMPLOYMENT Work Phone: [facility] [address] DO Work Phone: 09-07-2022 11:23-0500 Diastolic blood pressure 78 mm[Hg] Willy Grijalvakwasi Leyva MEDICAL STAFF SPECIALIST-DIRECTOR EMPLOYMENT Work Phone: [facility] [address] DO Work Phone: 09-07-2022 11:23-0500 Heart rate 64 /min Willy Talon Leyva MEDICAL STAFF SPECIALIST-DIRECTOR EMPLOYMENT Work Phone: [facility] [address] DO Work Phone: 09-07-2022 11:23-0500 Systolic blood pressure 122 mm[Hg] Willy Talon Leyva MEDICAL STAFF SPECIALIST-DIRECTOR EMPLOYMENT Work Phone: [facility] [facility] DO Work Phone: 05-06-2022 12:45-0400 Body weight 148.19 kg Celso Peñaloza MD, PhD Work Phone: [facility] 05-06-2022 12:45-0400 Diastolic blood pressure 55 mm[Hg] Celso Peñaloza MD, PhD Work Phone: [facility] 05-06-2022 12:45-0400 Heart rate 67 /min Celso Peñaloza MD, PhD Work Phone: [facility] 05-06-2022 12:45-0400 Systolic blood pressure 132 mm[Hg] Celso Peñaloza MD, PhD Work Phone: [facility] 03-29-2022 11:04-0400 Blood Pressure Location Yoko Leyva Jr. [facility] 03-29-2022 11:04-0400 Diastolic blood pressure 80 mm[Hg] Yoko Leyva Jr. [facility] 03-29-2022 11:04-0400 Heart rate 108 /min Yoko Leyva Jr. [facility] 03-29-2022 11:04-0400 Respiratory rate 16 /min Yoko Leyva Jr. [facility] 03-29-2022 11:04-0400 Systolic blood pressure 126 mm[Hg] Yoko Leyva Jr. [facility] 03-03-2022 12:59-0400 Blood Pressure Location Yoko Leyva Jr[facility] 03-03-2022 12:59-0400 Body temperature 97.88 [degF] Yoko Leyva Jr. [facility] 03-03-2022 12:59-0400 BP/Pulse Patient Position Yoko Leyva Jr[facility] 03-03-2022 12:59-0400 Diastolic blood pressure 60 mm[Hg] Yoko Leyva Jr[facility] 03-03-2022 12:59-0400 Heart rate 62 /min Yoko Leyva Jr[facility] 03-03-2022 12:59-0400 Mean blood pressure 74 mm[Hg] Yoko Leyva Jr[facility] 03-03-2022 12:59-0400 Respiratory rate 16 /min Yoko Leyva Jr. [facility] 03-03-2022 12:59-0400 SaO2% (BldA) [Mass fraction] 97 % Yoko Leyva Jr[facility] 03-03-2022 12:59-0400 Systolic blood pressure 100 mm[Hg] Yoko Leyva Jr. [facility] 03-03-2022 12:04-0400 Body temperature 98.06 [degF] Yoko Leyva Jr[facility] 03-03-2022 12:04-0400 Diastolic blood pressure 60 mm[Hg] Yoko Leyva Jr[facility] 03-03-2022 12:04-0400 Heart rate 63 /min Yoko Leyva Jr[facility] 03-03-2022 12:04-0400 Mean blood pressure 76 mm[Hg] Yoko Leyva Jr[facility] 03-03-2022 12:04-0400 SaO2% (BldA) [Mass fraction] 94 % Yoko Leyva Jr. [facility] 03-03-2022 12:04-0400 Systolic blood pressure 106 mm[Hg] Yoko Leyva Jr[facility] 03-03-2022 11:50-0400 Blood Pressure Location Yoko Leyva Jr[facility] 03-03-2022 11:50-0400 Body temperature 97.52 [degF] Yoko Leyva Jr[facility] 03-03-2022 11:50-0400 Diastolic blood pressure 70 mm[Hg] Yoko Leyva Jr[facility] 03-03-2022 11:50-0400 Heart rate 58 /min Yoko Leyva Jr[facility] 03-03-2022 11:50-0400 Respiratory rate 10 /min Yoko Leyva Jr[facility] 03-03-2022 11:50-0400 SaO2% (BldA) [Mass fraction] 95 % Yoko Leyva Jr. [facility] 03-03-2022 11:50-0400 Systolic blood pressure 141 mm[Hg] Yoko Leyva Jr[facility] 03-03-2022 11:40-0400 Blood Pressure Location Yoko Leyva Jr[facility] 03-03-2022 11:40-0400 Respiratory rate 17 /min Yoko Leyva Jr. [facility] 03-03-2022 11:35-0400 Respiratory rate 11 /min Yoko Leyva Jr[facility] 03-03-2022 11:25-0400 Body temperature 97.16 [degF] Yoko Leyva Jr. [facility] 03-03-2022 11:20-0400 Respiratory rate 26 /min Yoko Leyva Jr. [facility] 03-03-2022 11:15-0400 Respiratory rate 19 /min [facility] 03-03-2022 08:04-0400 Mean blood pressure 86 mm[Hg] [facility] 03-03-2022 08:04-0400 Body temperature 98.42 [degF] [facility] 03-03-2022 08:04-0400 Heart rate 68 /min [facility] 02-17-2022 13:43-0400 Blood Pressure Location [facility] 02-17-2022 13:43-0400 Diastolic blood pressure 69 mm[Hg] [facility] 02-17-2022 13:43-0400 Systolic blood pressure 162 mm[Hg] [facility] 02-17-2022 13:30-0400 Blood Pressure Location [facility] 02-17-2022 13:30-0400 BP/Pulse Patient Position [facility] 02-17-2022 13:30-0400 Diastolic blood pressure 52 mm[Hg] [facility] 02-17-2022 13:30-0400 Heart rate 68 /min [facility] 02-17-2022 13:30-0400 Mean blood pressure 84 mm[Hg] [facility] 02-17-2022 13:30-0400 Respiratory rate 24 /min [facility] 02-17-2022 13:30-0400 SaO2% (BldA) [Mass fraction] 92 % Y[facility] 02-17-2022 13:30-0400 Systolic blood pressure 149 mm[Hg] [facility] 02-17-2022 13:30-0400 Body temperature 99.32 [degF] [facility] 02-01-2022 11:14-0400 Blood Pressure Location Yoko Le[facility]va Jr[facility] 02-01-2022 11:14-0400 Diastolic blood pressure 43 mm[Hg] Yoko Le[facility]va Jr[facility] 02-01-2022 11:14-0400 Heart rate 72 /min [facility] 02-01-2022 11:14-0400 Respiratory rate 16 /min [facility] 02-01-2022 11:14-0400 Systolic blood pressure 133 mm[Hg] [facility]va Jr[facility] 12-27-2021 12:42-0400 Blood Pressure Location Yoko Le[facility]va Jr[facility] 12-27-2021 12:42-0400 Diastolic blood pressure 65 mm[Hg] [facility] Jr[facility] 12-27-2021 12:42-0400 Heart rate 68 /min Y[facility] Le[facility]va Jr[facility] 12-27-2021 12:42-0400 Systolic blood pressure 115 mm[Hg] [facility] Encounters Encounter Date Encounter Type Care Provider Facility Start: 05-26-2025 End: 05-26-2025 ambulatory France Wyman MD Facility:[facility] Start: 05-22-2025 End: 05-22-2025 Office outpatient visit 15 minutes Leela Bocanegra [employer] SAMPLER Work Phone: [facility] Comment on above: Pain; Need for vaccination Start: 05-22-2025 End: 05-22-2025 ambulatory LEELA BOCANEGRA Not Available Start: 05-22-2025 End: 05-22-2025 Bamboo flowsheet Leela Bocanegra AIR SAMPLER Work Phone: [facility] Start: 05-22-2025 End: 05-22-2025 Bamboo flowsheet Leela Bocanegra AIR SAMPLER Work Phone: [facility] Start: 05-05-2025 End: 05-05-2025 ambulatory Komal Schaffer II Work Phone: [facility] Work Phone: Start: 05-05-2025 End: 05-05-2025 Patient encounter procedure Stanley Ceja DO -[facility] Work Phone: Start: 04-29-2025 End: 04-29-2025 ambulatory [...] PODIATRY Start: 04-24-2025 End: 04-24-2025 Bamboo flowsheet Real Og DPM Work Phone: [facility] Start: 04-07-2025 End: 04-07-2025 ambulatory France Wyman MD Facility:[facility] Start: 04-01-2025 End: 04-01-2025 Bamboo flowsheet Leela Bocanegra AIR SAMPLER Work Phone: [facility] Start: 04-01-2025 End: 04-01-2025 Bamboo flowsheet Leela Bocanegra AIR SAMPLER Work Phone: [facility] Start: 04-01-2025 End: 04-01-2025 Office outpatient visit 15 minutes Leela Bocanegra [employer] SAMPLER Work Phone: [facility] Comment on above: Gross hematuria (Michelle galeana Dx); Lumbosacral spondylosis without myelopathy Start: 04-01-2025 End: 04-01-2025 Refill Leela Bocanegra AIR SAMPLER Work Phone: [facility] Comment on above: Pain Start: 03-18-2025 End: 03-18-2025 ambulatory Komal Schaffer II Work Phone: [facility] Work Phone: Start: 03-18-2025 End: 03-18-2025 Patient encounter procedure Gucci Jacques MD -[facility] Work Phone: Start: 02-26-2025 End: 02-26-2025 Clinisync Result Encounter Leela Bocanegra AIR SAMPLER Work Phone: [facility] Unsolicited Start: 02-26-2025 End: 02-26-2025 Clinisync Result Encounter Leela Bocanegra NP Work Phone: [facility] Unsolicited Start: 02-24-2025 End: 02-24-2025 Clinisync Result Encounter Generic External Data Provider [facility] Unsolicited Start: 02-24-2025 End: 02-24-2025 Clinisync Result Encounter Generic External Data Provider [facility] External Department Unsolicited Start: 02-18-2025 End: 02-18-2025 Bamboo flowsheet Leela Bocanegra AIR SAMPLER Work Phone: [facility] Start: 02-18-2025 End: 02-18-2025 Bamboo flowsheet Leela Bocanegra [employer] SAMPLER Work Phone: [facility] Start: 02-18-2025 End: 02-18-2025 Telephone encounter Leela Bocanegra [employer] SAMPLER Work Phone: [facility] Start: 02-18-2025 End: 02-18-2025 ambulatory LEELA BOCANEGRA Not Available Start: 02-18-2025 End: 02-18-2025 Office outpatient visit 25 minutes Leela Bocanegra [employer] SAMPLER Work Phone: [facility] Comment on above: Cellulitis of right lower extremity (Primary Dx); Muscle pain; Trigger middle finger of right hand; Pain Start: 02-13-2025 End: 02-14-2025 ambulatory Jamel Packer Facility:[facility] Start: 02-13-2025 Anticoagulant drug monitoring Jamel Packer -[facility] Work Phone: Start: 02-13-2025 Evaluation and management of inpatient Obaybharat Ceja MD -[facility] [place] [facility] Work Phone: Start: 02-13-2025 observation encounter Komal kelly II Work Phone: [facility] Work Phone: Start: 01-30-2025 End: 01-30-2025 Patient encounter procedure Real Og DPM Work Phone: [facility] Comment on above: 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 (Primary Dx); Venous insufficiency Start: 01-30-2025 End: 01-30-2025 ambulatory REAL OG Not Available Start: 01-30-2025 End: 01-30-2025 Bamboo flowsheet Real Og DPM Work Phone: [facility] Start: 01-30-2025 End: 01-30-2025 Bamboo flowsheet Real Og DPM Work Phone: [facility] Start: 01-27-2025 End: 01-27-2025 ambulatory France Wyman MD Facility: [facility] Start: 01-15-2025 End: 01-15-2025 Office outpatient visit 15 minutes [facility] MEDICAL STAFF SPECIALIST-DIRECTOR EMPLOYMENT Work Phone: [facility] Comment on above: BMI 45.0-49.9, adult (Multi) (Primary Dx); Localized edema Start: 01-15-2025 End: 01-15-2025 ambulatory [facility] Ambulatory Start: 01-06-2025 End: 01-06-2025 Bamboo flowsheet Christopher Chip DO Work Phone: [facility] Start: 01-06-2025 End: 01-06-2025 Bamboo flowsheet Christopher Chip DO Work Phone: [facility] Start: 01-06-2025 End: 01-06-2025 ambulatory STANLEY SAUNDERS Not Available Start: 01-06-2025 End: 01-06-2025 Office outpatient visit 25 minutes Christdevikaer Chip DO Work Phone: [facility] Comment on above: Myasthenia gravis (P rimary Dx); Class 3 severe obesity due to excess calories with serious comorbidity and body mass index (BMI) of 45.0 to 49.9 in adult; Ulnar neuropathy of both upper extremities Start: 01-02-2025 End: 01-02-2025 Office outpatient visit 25 minutes Real Og DPM Work Phone: [facility] Comment on above: Laceration of lesser toe of left foot without foreign body present, nail damage status unspecified, initial encounter (Primary Dx); Closed nondisplaced fracture of distal phalanx of left great toe, initial encounter; Venous insufficiency Start: 01-02-2025 End: 01-02-2025 ambulatory ERAL OG Not Available Start: 01-02-2025 End: 01-02-2025 Bamboo flowsheet Real Og DPM Work Phone: [facility] Start: 01-02-2025 End: 01-02-2025 Bamboo flowsheet Real Og DPM Work Phone: [facility] Start: 12-30-2024 End: 12-30-2024 ambulatory France Wyman MD Facility:[facility] Start: 12-12-2024 End: 12-12-2024 Bamboo flowsheet Real Og DPM Work Phone: [facility] Start: 12-12-2024 End: 12-12-2024 Bamboo flowsheet Real Og DPM Work Phone: [facility] Start: 12-12-2024 End: 12-12-2024 Office outpatient visit 25 minutes Real Og DPM Work Phone: [facility] Comment on above: Laceration of lesser toe of left foot without foreign body present, nail damage status unspecified, initial encounter (Primary Dx); Closed nondisplaced fracture of distal phalanx of left great toe, initial encounter Start: 12-12-2024 End: 12-12-2024 ambulatory REAL OG Not Available Start: 12-05-2024 End: 12-05-2024 Bamboo flowsheet Leela Bocanegra AIR SAMPLER Work Phone: [facility] Start: 12-05-2024 End: 12-05-2024 Bamboo flowsheet Leela Bocanegra AIR SAMPLER Work Phone: [facility] FM Start: 12-05-2024 End: 12-05-2024 Office outpatient visit 25 minutes Real Og DPM Work Phone: [facility] P[facility] Comment on above: Laceration of lesser [...] encounter procedure Real Og DPM Work Phone: [facility] Comment on above: 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 (Primary Dx); Venous insufficiency Start: 11-21-2024 End: 11-21-2024 ambulatory REAL OG Not Available Start: 11-21-2024 End: 11-21-2024 Bamboo flowsheet Real Og DPM Work Phone: [facility] Start: 11-21-2024 End: 11-21-2024 Bamboo flowsheet Real Og DPM Work Phone: [facility] Start: 11-11-2024 End: 11-11-2024 ambulatory [facility] Ambulatory Start: 11-04-2024 End: 11-04-2024 Office outpatient visit 25 minutes [facility] MEDICAL STAFF SPECIALIST-DIRECTOR EMPLOYMENT Work Phone: [facility] Comment on above: Localized edema (Michelle lissett Dx); Essential hypertension; BMI 45.0-49.9, adult (Multi); Paroxysmal atrial fibrillation (Multi) Start: 11-04-2024 End: 11-04-2024 ambulatory [facility] Ambulatory Start: 10-29-2024 End: 10-29-2024 ambulatory LEELA BOCANEGRA Not Available Start: 10-28-2024 End: 10-28-2024 ambulatory France Wyman MD Facility:[facility] Start: 10-22-2024 End: 10-22-2024 Clinisync Result Encounter Generic External Data Provider [facility] External Department Unsolicited Start: 10-22-2024 End: 10-22-2024 Clinisync Result Encounter Generic External Data Provider [facility] External Department Unsolicited Start: 10-21-2024 End: 10-21-2024 ambulatory France Wyman MD Facility:[facility] Start: 10-15-2024 End: 10-15-2024 Bamboo flowsheet Mookie Tamayo AIR SAMPLER Work Phone: [facility] Start: 10-15-2024 End: 10-15-2024 Bamboo flowsheet Mookie Tamayo AIR SAMPLER Work Phone: [facility] Start: 10-15-2024 End: 10-15-2024 ambulatory MOOKIE TAMAYO Not Available Start: 10-11-2024 End: 10-11-2024 Professional / ancillary services management Jimena Rice [facility] Comment on above: Paroxysmal atrial fi brillation (Multi) (Primary Dx); High risk medication use Start: 10-11-2024 End: 10-11-2024 ambulatory [facility] Ambulatory Start: 10-09-2024 End: 10-09-2024 Bamboo flowsheet Leela Bocanegra AIR SAMPLER Work Phone: [facility] Start: 10-09-2024 End: 10-09-2024 Bamboo flowsheet Leela Bocanegra AIR SAMPLER Work Phone: [facility] Start: 10-09-2024 End: 10-09-2024 Office outpatient visit 25 minutes Leela Bocanegra [employer] SAMPLER Work Phone: [facility] Comment on above: Benign essential hyp ertension (CMS/HCC) (Primary Dx); Yeast dermatitis; Bradycardia Start: 10-09-2024 End: 10-09-2024 ambulatory LEELA BOCANEGRA Not Available Start: 10-07-2024 End: 10-07-2024 ambulatory France Wyman MD Facility: [facility] Start: 09-24-2024 End: 09-24-2024 ambulatory [facility] Ambulatory Start: 09-18-2024 End: 09-18-2024 Telephone encounter Salmamonday SECTIONAL [employer] ASSEMBLER Work Phone: [facility] Start: 09-17-2024 End: 09-17-2024 ambulatory AIDE GARCIA Not Available Start: 09-17-2024 End: 09-17-2024 Office outpatient visit 25 minutes Aide Garcia PA Work Phone: [facility] Comment on [...] 09-16-2024 End: 09-16-2024 ambulatory France Wyman MD Facility:[facility] Start: 09-11-2024 Evaluation and management of inpatient Komal Schaffer II Work Phone: [facility] Work Phone: Start: 09-11-2024 End: 09-13-2024 observation encounter Komal Schaffer II Work Phone: [facility] Work Phone: Start: 09-11-2024 End: 09-13-2024 Orders Only Leela Bocanegra AIR SAMPLER Work Phone: [facility] Comment on above: Myasthenia gravis (C MS/HCC) Start: 09-11-2024 End: 09-13-2024 Komal Schaffer II Work Phone: [facility] [place] [facility] Work Phone: Start: 09-09-2024 End: 09-09-2024 ambulatory France Wyman MD Facility:[facility] Start: 07-31-2024 Komal Schaffer I I Work Phone: [facility] Physician [facility] Palliative Work Phone: Start: 07-30-2024 Komal Schaffer I I Work Phone: [facility] Physician [facility] Neurosurgery Work Phone: Start: 07-28-2024 End: 07-31-2024 Evaluation and management of inpatient Gucci Jacques Facility:[facility] Start: 07-28-2024 End: 07-31-2024 Komal Schaffer II Work Phone: [facility] [place] [place] [facility] Work Phone: Start: 07-24-2024 End: 07-24-2024 Bamboo flowsheet Leela Bocanegra AIR SAMPLER Work Phone: [facility] Start: 07-24-2024 End: 07-24-2024 Bamboo flowsheet Leela Bocanegra AIR SAMPLER Work Phone: [facility] Start: 07-24-2024 End: 07-24-2024 Office outpatient visit 25 minutes Leela Bocanegra AIR SAMPLER Work Phone: [facility] Comment on [...] of inpatient Komal Schaffer II Work Phone: [facility] [place] [facility] Work Phone: Start: 07-09-2024 End: 07-12-2024 Komal Schaffer II Work Phone: [facility] [place] [facility] Work Phone: Start: 07-01-2024 Non-patient / Non-visit Komal Schaffer II Work Phone: [facility] Work Phone: Start: 07-01-2024 Komal Schaffer I I Work Phone: [facility] Physician [facility] Health Rehab & Spine Work Phone: Start: 06-24-2024 Non-patient / Non-visit Komal Schaffer II Work Phone: [facility] Work Phone: Start: 06-24-2024 Komal Schaffer I I Work Phone: [facility] Physician [facility] Health [facility] Sp[facility] Work Phone: Start: 06-22-2024 Non-patient / Non-visit Komal Schaffer II Work Phone: [facility] Work Phone: Start: 06-22-2024 End: 07-04-2024 Komal Schaffer II Work Phone: [facility] [place] [facility] Work Phone: Start: 06-22-2024 End: 07-04-2024 Evaluation and management of inpatient II Komal Schaffer Work Phone: [facility] [place] Work Phone: Start: 06-21-2024 Non-patient / Non-visit II Kenroy socristóbal Schaffer Work Phone: [facility]ician [facility] Work Phone: Start: 06-21-2024 Komal Schaffer I I Work Phone: [facility] Physician [facility] Health Rehab & Spine Work Phone: Start: 06-19-2024 Non-patient / Non-visit II Kenroy Schaffer Work Phone: [facility] Physician [facility] Work Phone: Start: 06-19-2024 Komal Schaffer I I Work Phone: [facility] Physician [facility] Health Pulmonary Work Phone: Start: 06-19-2024 End: 06-22-2024 Komal Schaffer II Work Phone: [facility] [place] [facility] Work Phone: Start: 06-19-2024 End: 06-22-2024 Evaluation and management of inpatient II Komal Schaffer Work Phone: [facility] [place] [facility] Work Phone: Start: 06-13-2024 End: [...] 06-10-2024 End: 06-10-2024 ambulatory France Wyman MD Facility:[facility] Start: 05-27-2024 End: 05-27-2024 Bamboo flowsheet Stanley Saunders DO Work Phone: [facility] Start: 05-27-2024 End: 05-27-2024 Bamboo flowsheet Stanley Saunders DO Work Phone: [facility] Start: 05-27-2024 End: 05-27-2024 Office outpatient visit 25 minutes Stanley Saunders DO Work Phone: [facility] Comment on above: Myasthenia gravis (C MS/HCC) (Primary Dx); Class 3 severe obesity due to excess calories with serious comorbidity and body mass index (BMI) of 45.0 to 49.9 in adult (CMS/HCC) Start: 05-27-2024 End: 05-27-2024 ambulatory STANLEY SAUNDERS Not Available Start: 02-12-2024 End: 02-12-2024 Emergency department patient visit II Komal Schaffer Work Phone: [facility]-Emergency Room Work Phone: Start: 10-05-2023 End: 10-05-2023 Assay of hemosiderin, quant Komal Schaffer MD Work Phone: [facility] Work Phone: Start: 10-05-2023 End: 10-05-2023 Patient encounter procedure Komal Schaffer MD Work Phone: [facility] Comment on above: Routine general medi nabila [...] gravis without (acute) exacerbation (G70.00); Atherosclerosis of viejas artery of both lower extremities with intermittent claudication (CMS/HCC); Morbid (severe) obesity due to excess calories (E66.01); Body mass index [BMI] 45.0-49.9, adult (Z68.42) Start: 10-04-2023 Bamboo flowsheet Alem Garcia TA [facility] Start: 10-04-2023 Bamboo flowsheet Alem Sampson P TA [facility] Start: 10-04-2023 End: 10-04-2023 ambulatory Alem Sampson BODY FORMER [facility] Comment on above: Bilateral leg weakne ss (Primary Dx); Difficulty walking; Right leg pain Start: 09-28-2023 End: 09-28-2023 ambulatory Anderson Ray [facility] FORMER [facility] Comment on above: Bilateral leg weakne ss (Primary Dx); Difficulty walking; Right leg pain Start: 09-25-2023 Telephone encounter Komal kelly MD Work Phone: [facility] Start: 09-21-2023 End: 09-21-2023 ambulatory Anderson Ray B[facility] FORMER [facility] Comment on above: Bilateral leg weakne ss (Primary Dx); Difficulty walking; Right leg pain Start: 09-20-2023 End: 09-20-2023 Office outpatient visit 25 minutes Baltazar Hoover DO Work Phone: [facility] Comment on above: Paroxysmal atrial fi brillation (CMS/HCC); Pulmonary embolism, unspecified chronicity, unspecified pulmonary embolism type, unspecified whether acute cor pulmonale present (CMS/HCC); Myasthenia gravis (CMS/HCC); High risk medication use; Essential hypertension; Mixed hyperlipidemia; Morbid obesity with BMI of 45.0-49.9, adult (CMS/HCC) Start: 05-21-2023 End: 06-10-2023 Evaluation and management of inpatient GEOVANY Schaffer Work Phone: [facility] [place] [facility] Work Phone: Start: 05-19-[address] Komal Schaffer II Facility:[id number] Start: 05-18-[address] Komal Schaffer II Facility:[id number] Start: 05-16-[address] Komal Schaffer II Facility:[id number] Start: 05-10-2023 End: 05-21-2023 Evaluation and management of inpatient II Komal Schaffer Work Phone: [facility] [place] [facility] Work Phone: Start: 03-09-2023 End: 03-09-2023 ambulatory II Komal Schaffer Work Phone: [facility] Work Phone: Start: 03-09-2023 End: 03-09-2023 Departed Referred II Komal Schaffer Work Phone: [facility] Start: 10-15-2022 End: 10-18-2022 Evaluation and management of inpatient KOMAL SCHAFFER [facility] Start: 10-15-2022 End: 10-18-2022 Evaluation and management of inpatient Honorio Vuong MD Work Phone: [facility] Start: 09-07-2022 Office outpatient vi sit 25 minutes Willy Leyva MEDICAL STAFF SPECIALIST-DIRECTOR EMPLOYMENT Work Phone: [facility] [address] DO Work Phone: Start: 09-07-2022 Patient encounter procedure Willy Leyva MEDICAL STAFF SPECIALIST-DIRECTOR EMPLOYMENT Work Phone: [facility] [address] DO Work Phone: Start: 09-07-[address] Komal Schaffer II Facility: Start: 08-30-2022 End: 08-30-2022 ambulatory II Komal Schaffer Work Phone: [facility] Work Phone: Start: 08-30-2022 End: 08-30-2022 Departed Referred II Komal Schaffer Work Phone: [facility] Start: 06-28-2022 End: 06-28-2022 ambulatory II Komal Schaffer Work Phone: [facility] Work Phone: Start: 06-28-2022 End: 06-28-2022 Departed Referred II Komal Schaffer Work Phone: [facility] Start: 06-14-2022 End: 06-14-2022 ambulatory GEOVANY Schaffer Work Phone: [facility] Work Phone: Start: 06-14-2022 End: 06-14-2022 Departed Referred II Komal Schaffer Work Phone: [facility] Start: 05-06-2022 ambulatory Celso Peñaloza MD , PhD Work Phone: Urology Start: 05-06-2022 End: 05-06-2022 Patient encounter procedure Celso Peñaloza MD, PhD Work Phone: Urology Comment on above: Malignant neoplasm o f overlapping sites of bladder (HCC) (Primary Dx) Start: 03-29-2022 End: 03-30-2022 ambulatory Yoko Leyva Facility:[facility] Start: 03-29-2022 End: 03-29-2022 Patient encounter procedure Yoko Leyva Jr. [facility] Start: 03-29-2022 ambulatory Yoko Leyva Facility:[facility] Start: 03-03-2022 End: 03-03-2022 ambulatory Yoko Leyva Facility:[facility] Start: 03-03-2022 End: 03-03-2022 Admission to same day surgery center Yoko Leyva Jr[facility] Start: 02-17-2022 End: 02-18-2022 ambulatory Yoko Leyva Facility:[facility] Start: 02-17-2022 End: 02-17-2022 Patient encounter procedure Yoko Leyva Jr[facility] Start: 02-01-2022 End: 02-02-2022 ambulatory Yoko Leyva Facility:[facility] Start: 02-01-2022 End: 02-01-2022 Patient encounter procedure Yoko Leyva Jr. [facility] Start: 01-21-2022 End: 01-22-2022 ambulatory MASHA LEY Facility:[facility] Start: 01-21-2022 End: 01-21-2022 Lab Drop off MASHA LEY [facility] Start: 01-21-2022 End: 01-21-2022 Patient encounter procedure Yoko Leyva Jr. [facility] Start: 01-18-2022 End: 01-19-2022 ambulatory Yoko Leyva Facility:[facility] Start: 01-18-2022 End: 01-18-2022 Patient encounter procedure Yoko Leyva Jr. [facility] Start: 01-12-2022 End: 01-13-[address] YOKO LEYVA JR Facility:[facility] Start: 01-11-2022 Encounter for preprocedural cardiovascular examination DR YOKO LEYVA JR [facility] Start: 01-11-2022 Encounter for preprocedural laboratory examination DR YOKO LEYVA JR [facility] Start: 01-08-[address] YOKO LEYVA JR Fa cility:[facility] Start: 01-05-2022 End: 01-06-[address] YOKO LEYVA JR Facility:[facility] Start: 01-05-2022 End: 01-06-2022 Encounter for preprocedural cardiovascular examination DR YOKO LEYVA JR Facility: Start: 12-27-2021 End: 12-28-2021 ambulatory Yoko Leyva Facility:[facility] Start: 12-27-2021 End: 12-27-2021 Patient encounter procedure Yoko Le[facility]va Jr. [facility] Start: 12-15-2021 End: 12-16-[address] YOKO LEYVA JR Facility:[facility] Start: 12-07-2021 ambulatory Yoko Leyva Facility:[facility] Start: 12-07-2021 End: 12-08-2021 ambulatory Yoko Leyva Facility:[facility] Start: 12-07-2021 End: 12-07-2021 Patient encounter procedure Yoko Leyva Jr. [facility] Start: 11-05-2021 ambulatory Yoko Leyva Facility:[facility] Start: 05-25-2021 End: 05-25-[address] KOMAL SCHAFFER Facility:[facility] Start: 04-19-2021 End: 04-20-[address] KOMAL SCHAFFER Facility:[facility] Start: 02-09-2021 End: 02-10-2021 ambulatory LEELA BOCANEGRA Facility:[facility] Start: 01-11-2018 Ambulatory BALTAZAR Castle ity:[id number] Start: 01-08-2018 Ambulatory OLIVIA HALL Facility :[id number] Imaging result normal Willy Leyva MEDICAL STAFF SPECIALIST-DIRECTOR EMPLOYMENT Work Phone: [facility] DO Work Phone: Procedures Date Procedure Procedure Detail Performing Clinician Start: 04-01-2025 Urnls dip stick/tabl et rgnt non-auto w/o micrscp Leela Bocanegra AIR SAMPLER Work Phone: Start: 02-26-2025 ALL CKMB Leela alarocn AIR SAMPLER Work Phone: Start: 02-26-2025 [facility] Leela alarcon AIR SAMPLER Work Phone: Start: 02-24-2025 MR LUMBAR SPINE [...] - S [place] or Plasma Jimena Rice GARMENT STEAMER Start: 09-20-2023 Ecg routine ecg w/le ast 12 lds w/i&r Baltazar Hoover DO Work Phone: Start: 05-25-2023 Duplex scan of lower limb veins II Komal Schaffer Work Phone: Start: 05-16-2023 Bacterial ID (NA Mul tiplex Assay) II Kmoal Schaffer Work Phone: Start: 05-16-2023 Blood culture [...] Work Phone: Start: 10-16-2022 C-reactive protein Bran deshaun Vuong MD Work Phone: Start: 10-16-2022 Prothrombin time Brandon Vuong MD Work Phone: Start: 05-06-2022 Urnls dip stick/tabl et reagent auto microscopy Bulk Order Provider Start: 03-03-2022 Cystoscopy and trans urethral resection of bladder tumor Yoko Leyva Jr. Start: 12-27-2021 Cystoscopy Yoko burnette Jr. Start: 02-16-2017 Transurethral water vapor ablation of prostate Yoko Leyva Jr. Appendectomy Willy maravilla MEDICAL STAFF SPECIALIST-DIRECTOR EMPLOYMENT Work Phone: Cardiac catheterization Alondra Leyva Jr. Cardiac catheterization Amandeep Leyva MEDICAL STAFF SPECIALIST-DIRECTOR EMPLOYMENT Work Phone: Cataract surgery Willy Leyva MEDICAL STAFF SPECIALIST-DIRECTOR EMPLOYMENT Work Phone: Entire neck (body structure) Yoko Leyva JrRaul Comment on above: 2017 Excision of neoplasm Willy Leyva MEDICAL STAFF SPECIALIST-DIRECTOR EMPLOYMENT Work Phone: Comment on above: bladder; Extraction of cataract Horace Leyva JrRaul Procedure on neck Willy Leyva MEDICAL STAFF SPECIALIST-DIRECTOR EMPLOYMENT Work Phone: Total colonoscopy Willy Leyva MEDICAL STAFF SPECIALIST-DIRECTOR EMPLOYMENT Work Phone: Comment on above: PROCEDURE DATE 2007; Plan of Treatment Date Care Activity Detail Author Start: 09-25-2028 Lipid panel Lipid Panel [facility] Start: 11-08-2025 Creatinine measurement Creatinine Le ch[facility] Start: 11-08-2025 Potassium measurement Potassium Leve l [facility] Start: 09-25-2025 End: 09-25-2025 Patient encounter procedure 09/25/2025 2:10 PM EST Office Visit [facility] [address] [facility] [address] [place] [address] Baltazar Hoover DO [address] [facility] [address] [place] [address] [facility] Start: 07-03-2025 End: 07-03-2025 Patient encounter procedure 07/03/2025 2:40 PM EST Procedure Visit [facility] [address] [place] [phone] Real Og DPM [address] [facility] [address] [place] [address] [facility] Start: 05-22-2025 End: 05-22-2025 Patient encounter procedure 05/22/2025 2:30 PM EDT Office Visit [facility] [place] [facility] [address] [place] [address] Leela Bocanegra, ANAMARIA [address] [place], [place] [id number] Arrived KELSY Funez Comment on above: Arrived Start: 05-05-2025 End: 05-05-2025 Patient encounter procedure 05/05/2025 1:30 PM EDT Office Visit RANDELL MEAD [address] [place] [address] Stanley Saunders DO [address] [place] [address] [facility] Start: 04-27-2025 DIABETES SCREEN DIABETES SCREEN [facility] Start: 04-24-2025 End: 04-24-2025 Patient encounter procedure [facility] Comment on above: 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 (Primary Dx); Venous insufficiency Start: 04-21-2025 Influenza vaccination [facility] Start: 04-10-2025 End: 04-10-2025 Patient encounter procedure 04/10/2025 3:10 PM EDT Procedure Visit [facility] [address] [facility] [address] [place] [address] Real Og DPM [address] [facility] 5 [place] [address] [facility] Start: 04-01-2025 End: 04-01-2025 Patient encounter procedure 04/01/2025 11:30 AM EDT Office Visit [facility] [address] [facility] [address] [place] [address] Leela Bocanegra AIR SAMPLER [address] [facility] [address] [place] [address] Arrived KELSY Funez Comment on above: Arrived Start: 02-18-2025 End: 02-18-2026 CK total and CKMB CK total and CKMB Lab Routine Muscle pain Expected: 02/18/2025 (Approximate), Expires: 02/18/2026 [facility] Work Phone: Comment on above: Expected: 02/18/2025 (Approximate), Expires: 02/18/2026 Start: 02-14-2025 Comprehensive metabo lic 2000 panel - Serum or Plasma [facility] Start: 02-14-2025 End: 02-14-2025 [facility] Start: 02-13-2025 Physical therapy procedure [facility] Start: 02-13-2025 Referral to neurologist [facility] Start: 02-13-2025 Referral to occupati onal therapist [facility] Start: 02-13-2025 [facility] Start: 02-13-2025 Hospital admission [facility] Start: 01-30-2025 End: 01-30-2025 Patient encounter procedure [facility] Comment on above: 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 (Primary Dx); Venous insufficiency Start: 01-06-2025 End: 01-06-2025 Patient encounter procedure 01/06/2025 12:30 PM EDT Office Visit RANDELL MEAD [address] [place] [phone] Stanley Saunders DO [address] [place] [address] [facility] ME[facility] Start: 01-02-2025 End: 01-02-2025 Patient encounter procedure [facility] Comment on above: Laceration of lesser toe of left foot without foreign body present, nail damage status unspecified, initial encounter (Primary Dx); Closed nondisplaced fracture of distal phalanx of left great toe, initial encounter; Venous insufficiency Start: 12-16-2024 Hemoglobin A1c measurement Jen betes: Hemoglobin A1C [facility] Start: 12-16-2024 End: 12-16-2024 Patient encounter procedure 12/16/2024 1:45 PM EDT Office Visit [facility] [address] [facility] [address] [place] [phone] Komal Schaffer MD [address] [facility] [address] [place] [address] [facility] Start: 12-12-2024 End: 12-12-2024 Patient encounter procedure [facility] Comment on above: Laceration of lesser toe of left foot without foreign body present, nail damage status unspecified, initial encounter (Primary Dx); Closed nondisplaced fracture of distal phalanx of left great toe, initial encounter Start: 12-09-2024 End: 12-09-2024 Patient encounter procedure 12/09/2024 2:00 PM EDT Office Visit [address] [place] [address] Willy Leyva, MEDICAL STAFF SPECIALIST-DIRECTOR EMPLOYMENT [address] [facility] [address] [place] [address] [facility] Start: 12-05-2024 End: 12-05-2024 Patient encounter procedure [...] Essential hypertension Expected: 11/11/2024 (Approximate), Expires: 11/04/2025 [facility] Service Area Work Phone: Comment on above: Expected: 11/11/2024 (Approximate), Expires: 11/04/2025 Start: 11-11-2024 End: 11-11-2024 Professional / ancillary services management 11/11/2024 2:00 PM EDT Ancillary Procedure [address] [place] [address] [facility] Start: 11-04-2024 End: 11-04-2025 Holter monitor study Holter Or Event Bobbin Dumper Cardiac Services Routine Localized edema Paroxysmal atrial fibrillation (Multi) Expected: 11/04/2024 (Approximate), Expires: 11/04/2025 [facility] Work Phone: Comment on above: Expected: 11/04/2024 (Approximate), Expires: 11/04/2025 Start: 10-15-2024 End: 10-15-2024 Patient encounter procedure RANDELL MEAD Comment on above: Arrived Start: 10-11-2024 End: 10-11-2025 Basic metabolic 2000 panel - Serum or Plasma Basic Metabolic Panel Lab Routine Paroxysmal atrial fibrillation (Multi) High risk medication use Expected: 10/11/2024 (Approximate), Expires: 10/11/2025 [facility] Service Area Work Phone: Comment on [...] FM [address] [place] [phone] Leela Bocanegra NP [address] [place] [address] Arrived [facility] Comment on above: Arrived Start: 10-05-2024 Medicare Annual Well ness (AWV) Medicare Annual Wellness (AWV) [facility] Start: 09-25-2024 Urine screening for protein Diabetes: Urine Protein Screening [facility] Start: 09-24-2024 End: 09-24-2024 Patient encounter procedure 09/24/2024 2:20 PM EST Office Visit [facility] [address] [place] [address] Baltazar Hoover DO [address] [place] [address] [facility] Start: 09-21-2024 [facility] Start: 09-20-2024 [facility] Start: 09-19-2024 [facility] Start: 09-18-2024 [facility] Start: 09-17-2024 [facility] Start: 09-16-2024 [facility] Start: 09-15-2024 [facility] Start: 09-14-2024 [facility] Start: 09-13-2024 End: 09-13-2024 [facility] Start: 09-12-2024 End: 09-12-2024 Patient encounter procedure 09/12/2024 2:50 PM EST Procedure Visit [facility] [address] [place] [address] Real Og DPM [address] [facility] 5 [place] [address] [facility] Start: 09-12-2024 [facility] Start: 09-11-2024 [facility] Start: 09-11-2024 Hospital admission [facility] Start: 09-11-2024 Referral to neurologist [facility] Start: 09-11-2024 End: 09-11-2024 [facility] Start: 08-22-2024 End: 08-22-2024 Patient encounter procedure 08/22/2024 3:00 PM EST Procedure Visit [facility] [address] [place] [address] Real Og DPM [address] [facility] 5 [place] [address] [facility] Start: 07-31-2024 [facility] Start: 07-30-2024 Referral to palliati ve care physician [facility] Start: 07-29-2024 Consultation [facility] Start: 07-28-2024 Hospital admission [facility] Start: 07-24-2024 End: 07-24-2025 Basic metabolic [...] [address] [place] [address] Leela Bocanegra AIR SAMPLER [address] [place], [place] [phone] Arrived [facility] Comment on above: Arrived Start: 07-23-2024 End: 07-23-2024 Patient encounter procedure 07/23/2024 1:40 PM EST Office Visit [facility] [place] [address] [place] [phone] Rubia Henning NP [address] [place], [place] [phone] [facility] [place] [facility] Start: 07-22-2024 End: 07-22-2024 Patient encounter procedure 07/22/2024 1:00 PM EST Office Visit [facility] [place] [address] [place] [address] Mookie Tamayo NP [address] [place] [phone] [facility] [place] [facility] Start: 07-12-2024 End: 07-12-2024 [facility] Start: 07-11-2024 [facility] Start: 07-10-2024 [facility] Start: 07-09-2024 [facility] Start: 07-09-2024 Hospital admission [facility] Start: 07-09-2024 Referral to neurologist [facility] Start: 07-09-2024 [facility] Start: 07-04-2024 [facility] Start: 06-29-2024 [facility] Start: 06-28-2024 [facility] Start: 06-27-2024 [facility] Start: 06-26-2024 [facility] Start: 06-25-2024 [facility] Start: 06-24-2024 [facility] Start: 06-23-2024 [facility] Start: 06-22-2024 Hospital admission [facility] Start: 06-22-2024 Referral to clinical waste transportation technician [facility] Start: 06-22-2024 End: 06-22-2024 [facility] Start: 06-21-2024 [facility] Start: 06-20-2024 Referral to rehabili tation physician [facility] Start: 06-20-2024 Referral to rehabili tation physician [facility] Start: 06-20-2024 [facility] Start: 06-19-2024 Physical therapy procedure [facility] Start: 06-19-2024 Referral to occupati onal therapist [facility] Start: 06-19-2024 Referral to speech a nd language therapy service [facility] Start: 06-19-2024 [facility] Start: 06-19-2024 Consultation [facility] Start: 06-19-2024 Hospital admission [facility] Start: 06-19-2024 Referral to neurologist [facility] Start: 06-19-2024 [facility] Start: 06-13-2024 End: 06-13-2024 Patient encounter procedure [facility] Comment on above: 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 (Primary Dx); Venous insufficiency Start: 05-27-2024 End: 05-27-2024 Patient encounter procedure 05/27/2024 1:00 PM EDT Office Visit KELSY MEAD [address] [place] [phone] Stanley Saunders, [address] [place] [address] Arrived [facility] [address] Comment on above: Arrived Start: 05-16-2024 Echocardiography [facility] Start: 04-21-2024 COVID-19 Vaccine ( season) COVID-19 Vaccine ( season) [facility] Start: 04-21-2024 Influenza vaccination Influenza Vacc ine (#1) [facility] Start: 03-19-2024 End: 03-19-2024 Patient encounter procedure 03/19/2024 1:00 PM EDT Office Visit [facility] [address] [facility] [address] [place] [phone] Willy Leyva, MEDICAL STAFF SPECIALIST-DIRECTOR EMPLOYMENT [facility] [facility] [address] [place] [address] [facility] Start: 02-12-2024 Bacteria identified in Blood by Culture [facility] Start: 12-24-2023 Hemoglobin A1c measurement Jen betes: Hemoglobin A1C [facility] Start: 11-16-2023 End: 11-16-2023 Patient encounter procedure 11/16/2023 3:40 PM EDT Procedure Visit [facility] [address] [facility] [address] [place] [address] Real Og, DPM [address] [facility] [address] [place] [address] [facility] Start: 11-15-2023 End: 09-20-2024 Holter monitor study Holter Or Event Bobbin Dumper Cardiac Services Routine Paroxysmal atrial fibrillation (CMS/HCC) Expected: 11/15/2023, Expires: 09/20/2024 [facility] Service Area Work Phone: Comment on above: Expected: 11/15/2023 , Expires: 09/20/2024 Start: 11-15-2023 End: 11-15-2023 Professional / ancillary services management 11/15/2023 1:00 PM EDT Ancillary Procedure [facility] [address] [facility] [address] [place] [address] [facility] Start: 10-09-2023 End: 10-09-2023 ambulatory [facility] Start: 10-05-2023 End: 10-05-2023 Patient encounter procedure 10/05/2023 1:15 PM EST Office Visit [facility] [address] [facility] [address] [place] [phone] Komal Schaffer MD [address] [facility] [address] [place] [address] [facility] Start: 10-04-2023 End: 10-04-2023 ambulatory [facility] Comment on above: Arrived Start: 09-28-2023 End: 09-28-2023 ambulatory 09/28/2023 1:30 PM EST Treatment [facility] [address] [facility] [address] [place] [address] Anderson Ray PTA [facility] Start: 09-25-2023 End: 09-25-2024 CBC W Auto Differential panel - Blood CBC and differential Lab Routine Paroxysmal atrial fibrillation ([facility]/HCC) Expected: 09/25/2023 (Approximate), Expires: 09/25/2024 [facility] Comment on above: Expected: 09/25/2023 (Approximate), Expires: 09/25/2024 Start: 09-25-2023 End: 09-25-2024 Comprehensive metabolic 2000 panel - Serum or Plasma Comprehensive metabolic panel Lab Routine Benign essential hypertension ([facility]/HCC) Expected: 09/25/2023 (Approximate), Expires: 09/25/2024 [facility] Comment on above: Expected: 09/25/2023 (Approximate), Expires: 09/25/2024 Start: 09-25-2023 End: 09-25-2024 Hemoglobin A1c measurement Hemoglobin A1c Lab Routine Type 2 diabetes mellitus with diabetic neuropathy, without long-term current use of insulin ([facility]/HCC) Expected: 09/25/2023 (Approximate), Expires: 09/25/2024 [facility] Healthcare Work Phone: Comment on above: Expected: 09/25/2023 (Approximate), Expires: 09/25/2024 Start: 09-25-2023 End: 09-25-2024 Lipid 1996 panel - Serum or Plasma Lipid panel Lab Routine Type 2 diabetes mellitus with diabetic neuropathy, without long-term current use of insulin ([facility]) Benign essential hypertension ([facility]) Expected: 09/25/2023 (Approximate), Expires: 09/25/2024 [facility] Comment on above: Expected: 09/25/2023 (Approximate), Expires: 09/25/2024 Start: 09-25-2023 End: 09-25-2024 TSH W/REFLEX TO FT4 TSH W/REFLEX TO FT4 Lab Routine Type 2 diabetes mellitus with diabetic neuropathy, without long-term current use of insulin ([facility]) Expected: 09/25/2023 (Approximate), Expires: 09/25/2024 [facility] Comment on above: Expected: 09/25/2023 (Approximate), Expires: 09/25/2024 Start: 09-25-2023 End: 09-25-2023 ambulatory 09/25/2023 12:30 PM EST Treatment [facility] [address] [facility] [address] [place] [address] Anderson Ray, BODY FORMER [facility] Start: 08-24-2023 FUV, Provider: Baltazar Hoover, Status: Pen, Time: 11:10 AM FUV, Provider: Baltazra Hoover, Status: Pen, Time: 11:10 AM [place] [address] DO Work Phone: Start: 07-01-2023 Hemoglobin A1c measurement Jen betes: Hemoglobin A1C [facility] Start: 06-10-2023 [facility] Start: 05-22-2023 [facility] Start: 05-21-2023 [facility] Start: 05-21-2023 Administration of prophylactic treatment [facility] Start: 05-21-2023 Hospital admission [facility] Start: 05-21-2023 Referral to clinical waste transportation technician [facility] Start: 05-21-2023 [facility] Start: 05-18-2023 Administration of prophylactic treatment [facility] Start: 05-18-2023 [facility] Start: 05-16-2023 Referral to rehabili tation physician [facility] Start: 05-16-2023 [facility] Start: 05-11-2023 Consultation [facility] Start: 05-11-2023 Hospital admission [facility] Start: 05-11-2023 Referral to neurologist [facility] Start: 05-10-2023 Respiratory Ventilat ion, Greater than 96 Consecutive Hours Respiratory Ventilation, Greater than 96 Consecutive Hours [facility] Start: 04-21-2023 COVID-19 Vaccine ( season) COVID-19 Vaccine ( season) [facility] Start: 04-21-2022 Influenza vaccination INFLUENZA (#1) [facility] Start: 03-21-2022 Influenza vaccination Flu vaccine (# 1) [facility] Start: 09-25-2021 COVID-19 VACCINE (4 - Booster for Pfizer series) COVID-19 VACCINE (4 - Booster for Pfizer series) [facility] Start: 08-21-2021 ADVANCE DIRECTIVE DISCUSSION ADVANCE DIRECTIVE DISCUSSION [facility] Start: 08-17-2021 Urine screening for protein Diabetes: Urine Protein Screening [facility] Start: 07-19-2021 COVID-19 Vaccine (4 - Booster for Pfizer series) COVID-19 Vaccine (4 - Booster for Pfizer series) [facility] Start: 2018 RSV High Risk: (Elde rly (60+) or Population) (1 - 1-dose 75+ series) RSV High Risk: (Elderly (60+) or Population) (1 - 1-dose 75+ series) [facility] Start: 07-03-2012 Zoster Vaccines (2 of 3) Zoste r Vaccines (2 of 3) [facility] Start: 2008 PNEUMOCOCCAL: 65+ (1 - PCV) PNEUMOCOCCAL: 65+ (1 - PCV) [facility] Start: 1993 SHINGRIX VACCINE (1 of 2) COLEMAN GRIX VACCINE (1 of 2) [facility] Start: 1965 DTaP/Tdap/Td Vaccine s (1 - Tdap) DTaP/Tdap/Td Vaccines (1 - Tdap) [facility] Start: 1962 DTaP/Tdap/Td vaccine (1 - Tdap) DTaP/Tdap/Td vaccine (1 - Tdap) [facility] Start: 1962 Urine microalbumin profile DTAP,TDAP ,TD (1 - Tdap) [facility] Start: 1961 Diabetes mellitus screening Diabetes Screening [facility] Start: 1961 HEPATITIS C SCREENING HEPATITIS C [facility] Start: 1961 Hepatitis C screening Hepatitis C [facility] Start: 1955 Adult depression scr eening assessment DEPRESSION SCREENING [facility] Start: 1953 Glaucoma screening Diabetes: R etinopathy Screening [facility] Start: 1943 Lipid panel Lipid Panel [facility] Start: 1943 Medicare Annual Well ness (AWV) Medicare Annual Wellness (AWV) [facility] Start: 1943 Medicare Annual Well ness Visit Medicare Annual Wellness Visit (AWV) [facility] Start: 1943 Thyroid stimulating hormone measurement TSH Level [facility] End: 11-06-2022 Basic metabolic 2000 panel - Serum or Plasma Basic Metabolic Panel Lab Routine Daily for 3 Weeks starting 10/17/2022 until 11/06/2022, 2 completed [facility] Phone: Comment on above: Daily for [address] arting 10/17/2022 until 11/06/2022, 2 completed End: 11-06-2022 CBC panel - Blood by Automated count CBC Lab Routine Daily for 3 Weeks starting 10/17/2022 until 11/06/2022, 2 completed [facility] Phone: Comment on above: Daily for [address] arting 10/17/2022 until 11/06/2022, 2 completed Home BIPAP or CPAP Home BIPAP or CPAP Respiratory Care Routine Daily until discontinued starting 10/17/2022 [facility] Phone: Comment on above: Daily until disconti nued starting 10/17/2022 End: 10-15-2022 Intermittent pulse oximetry Pulse Oximetry Spot Check Respiratory Care Routine Continuous until discontinued starting 10/15/2022 [facility] Work Phone: Comment on above: Continuous until dis continued starting 10/15/2022 Oxygen therapy [[facility] Data Set] Initiate Oxygen Therapy Protocol Respiratory Care Routine As Needed until discontinued starting 10/15/2022 [facility] Work Phone: Comment on above: As Needed until disc ontinued starting 10/15/2022 Patient Education [facility] Work Phone: Patient referral [facility] Work Phone: [facility] Immunizations Immunization Date Immunization Notes Care Provider Bright farley 05-22-2025 influenza, high dose seasonal, preservative-free Leela Bocanegra AIR SAMPLER Work Phone: [facility] 06-22-2024 influenza, high dose seasonal, preservative-free GEOVANY Komal Sarbjit Work Phone: [facility] 06-05-2024 influenza, seasonal, injectable Willy Leyva MEDICAL STAFF SPECIALIST-DIRECTOR EMPLOYMENT Work Phone: [facility] Work Phone: 06-05-2024 influenza virus vaccine, unspecified formulation Leela Bocanegra AIR SAMPLER Work Phone: [facility] 06-22-2023 Influenza, High-dose Seasonal, Quadrivalent, Preservative Free Anderson Ray BODY FORMER [facility] 06-22-2023 influenza virus vaccine, unspecified formulation Stanley Saunders DO Work Phone: [facility] 07-21-[address] 12 Years And Older Anderson Ray BODY FORMER [facility] 07-21-2022 Pfizer COVID-19 Vac Bivalent 30 MCG/0.3ML Intramuscular Suspension Willy Leyva MEDICAL STAFF SPECIALIST-DIRECTOR EMPLOYMENT Work Phone: [facility] 250 DO Work Phone: 07-13-2022 Fluzone High-Dose Quadrivalent 0.7 ML Intramuscular Suspension Prefilled Syringe Willy Leyva MEDICAL STAFF SPECIALIST-DIRECTOR EMPLOYMENT Work Phone: [facility] 250 DO Work Phone: 05-25-2021 Pfizer-BioNTech COVID-19 Vacc 30 MCG/0.3ML Intramuscular Suspension Willy Leyva MEDICAL STAFF SPECIALIST-DIRECTOR EMPLOYMENT Work Phone: [facility] 250 DO Work Phone: 05-20-2021 Fluad Quadrivalent 0 .5 ML Intramuscular Prefilled Syringe iWlly Leyva MEDICAL STAFF SPECIALIST-DIRECTOR EMPLOYMENT Work Phone: [facility] 250 DO Work Phone: 05-20-2021 Seasonal, trivalent, recombinant, injectable influenza vaccine, preservative free Anderson Cory [facility] 02-18-2021 SARS-CoV-2 (COVID-19 ) mRNA BNT-162b2 liana Leyva Jr. [facility] 11-10-2020 Pfizer-BioNTech COVID-19 Vacc 30 MCG/0.3ML Intramuscular Suspension Willy Leyva MEDICAL STAFF SPECIALIST-DIRECTOR EMPLOYMENT Work Phone: [place] [address] DO Work Phone: 10-19-2020 Pfizer-BioNTech COVID-19 Vacc 30 MCG/0.3ML Intramuscular Suspension Willy Leyva MEDICAL STAFF SPECIALIST-DIRECTOR EMPLOYMENT Work Phone: [place] [address] DO Work Phone: 09-21-2020 SARS-CoV-2 (COVID-19 ) mRNA BNT-162b2 liana Leyva Jr. [facility] 08-21-2020 SARS-CoV-2 (COVID-19 ) mRNA BNT-162b2 liana Leyva Jr. [facility] [place] 05-06-2020 influenza, high dose seasonal, preservative-free Willy Leyva MEDICAL STAFF SPECIALIST-DIRECTOR EMPLOYMENT Work Phone: [place] [address] DO Work Phone: 05-06-2020 Influenza, High-dose Seasonal, Quadrivalent, Preservative Free Anderosn Ray [facility] 04-21-2020 influenza virus vaccine, unspecified formulation Willy Leyva MEDICAL STAFF SPECIALIST-DIRECTOR EMPLOYMENT Work Phone: [facility] 250 DO Work Phone: 04-21-2020 influenza, seasonal, injectable Baltazar Hoover DO Work Phone: [facility] Work Phone: 05-27-2019 influenza, high dose seasonal, preservative-free Baltazar Hoover DO Work Phone: [facility] Work Phone: 05-27-2019 Influenza, High-dose Seasonal, Quadrivalent, Preservative Free Anderson Ray [facility] 05-21-2019 influenza virus vaccine, unspecified formulation Willy Leyva MEDICAL STAFF SPECIALIST-DIRECTOR EMPLOYMENT Work Phone: [place] [address] DO Work Phone: 05-21-2019 influenza, seasonal, injectable Baltazar Hoover DO Work Phone: [facility] Work Phone: 05-23-2018 influenza, high dose seasonal, preservative-free Willy Leyva MEDICAL STAFF SPECIALIST-DIRECTOR EMPLOYMENT Work Phone: [facility] 250 DO Work Phone: 05-23-2018 Influenza, High-dose Seasonal, Quadrivalent, Preservative Free Anderson Ray [facility] 11-30-2017 pneumococcal polysaccharide vaccine, 23 valent Willy Leyva MEDICAL STAFF SPECIALIST-DIRECTOR EMPLOYMENT Work Phone: [facility] 06-27-2017 influenza, high dose seasonal, preservative-free Willy Leyva MEDICAL STAFF SPECIALIST-DIRECTOR EMPLOYMENT Work Phone: [facility] 250 DO Work Phone: 05-21-2017 pneumococcal vaccine , unspecified formulation Willy Levya MEDICAL STAFF SPECIALIST-DIRECTOR EMPLOYMENT Work Phone: [facility] 250 DO Work Phone: 05-17-2017 influenza, high dose seasonal, preservative-free Willy Leyva MEDICAL STAFF SPECIALIST-DIRECTOR EMPLOYMENT Work Phone: [facility] 250 DO Work Phone: 05-17-2017 Influenza, High-dose Seasonal, Quadrivalent, Preservative Free Anderson Ray [facility] 08-06-2016 pneumococcal conjuga te vaccine, 13 valent Stanley Saunders DO Work Phone: [facility] 05-21-2016 pneumococcal conjuga te vaccine, 13 valent Willy Leyva MEDICAL STAFF SPECIALIST-DIRECTOR EMPLOYMENT Work Phone: [place] [address] DO Work Phone: 10-26-2015 pneumococcal conjuga te vaccine, 13 valent Willy Leyva MEDICAL STAFF SPECIALIST-DIRECTOR EMPLOYMENT Work Phone: [facility] 250 DO Work Phone: 05-22-2015 seasonal influenza, intradermal, preservative free Anderson Ray [facility] 05-30-2014 seasonal influenza, intradermal, preservative free Anderson Ray [facility] 05-08-2012 zoster vaccine, live Andersonkathy Jaquez e [facility] 10-19-2004 pneumococcal polysaccharide vaccine, 23 valent Anderson Ray [facility] Payers Date Payer Category Payer Self-pay [id number] 2022 Medicare supplementa l policy (as second payer) [facility] [id number] 2022 Unknown 2016 Private Health Insurance [id number] .[id number]. 2.7.3.047870.315 2008 Medicare 1.2.840.920520. 1.13.159. 2.7.3.563668.315 1959 Medicare [id number] 1959 Unknown [id number] 1943 Unknown [id number] 2.16.840.1.076489.3.579. 2.593 1943 Unknown [id number] 2.16.840.1.590835.3.579. 2.593 1943 Unknown [id number] 2.16.840.1.431148.3.579. 2.593 1943 Unknown [id number] 2.16.840.1.008787.3.579. 2.593 1943 Unknown [id number] 2.16.840.1.156572.3.579. 2.593 1943 Unknown [id number] 2.16.840.1.925742.3.579. 2.593 1943 Unknown [id number] 2.16.840.1.918794.3.579. 2.593 1943 Unknown [id number] 2.16.840.1.539697.3.579. 2.727 1943 Unknown [id number] 2.16.840.1.732163.3.579. 2.727 1943 Unknown [id number] 2.16.840.1.825968.3.579. 2.727 1943 Unknown [id number] 2.16840.1.315271.3.579. 2 1943 Unknown [id number] 2.840.1.967601.3.579. 2.72 1943 Unknown [id number] 2.840.1.853464.3.579. 2. 1943 Unknown [id number] 2.840.1.893132.3.579. 2 1943 Unknown [id number] 2.840.1.916904.3.579. 2 1943 Unknown [id number] 2.0.1.503226.3.579. 2 1943 Unknown [id number] 2.840.1.314891.3.579. 272 1943 Unknown [id number] 2.840.1.029001.3.579. 2 1943 Unknown [id number] 2.840.1.044728.3.579. 272 1943 Unknown [id number] 2.0.1.874430.3.579. 272 1943 Unknown [id number] 2.840.1.488044.3.579. 2.175 1943 Unknown [id number] 2.16840.1.547494.3.579. 2.356 1943 Unknown [id number] 2.840.1.455615.3.579. 2.356 1943 Unknown [id number] 2.840.1.181437.3.579. 2.356 1943 Unknown [id number] 2.16.840.1.176053.3.579. 2.356 1943 Unknown [id number] 2.16.840.1.857728.3.579. 2.356 1943 Unknown [id number] 2.16.840.1.200286.3.579. 2.1244 1943 Unknown [id number] 2.16.840.1.723993.3.579. 2.1244 1943 Unknown [id number] 2.16.840.1.594477.3.579. 2.1244 1943 Unknown [id number] 2.840.1.229625.3.579. 2.4 1943 Unknown [id number] 2.840.1.374277.3.579. 2.1244 1943 Unknown [id number] 2.840.1.726710.3.579. 2.718 1943 Unknown [id number] 2.840.1.392409.3.579. 2.1259 1943 Unknown [id number] 2.840.1.460189.3.579. 2.1259 1943 Unknown [id number] 2.840.1.996804.3.579. 2.1259 1943 Unknown [id number] 2.16840.1.503866.3.579. 2.1259 1943 Unknown [id number] 2.840.1.150279.3.579. 2.1259 1943 Unknown [id number] 2.16840.1.268302.3.579. 2.1259 1943 Unknown [id number] 2.16840.1.866797.3.579. 2.1259 1943 Unknown [id number] 2.16840.1.517245.3.579. 2.1259 1943 Unknown [id number] 2.16.840.1.179978.3.579. 2.1258 1943 Unknown [id number] 2.16.840.1.041417.3.579. 2.1258 1943 Unknown [id number] 2.16.840.1.492225.3.579. 2.1258 1943 Unknown [id number] 2.16.840.1.409345.3.579. 2.1258 1943 Unknown [id number] 2.840.1.950049.3.579. 2.1258 1943 Unknown [id number] 2.840.1.030277.3.579. 2.1258 1943 Unknown [id number] 2.840.1.594221.3.579. 2.1258 1943 Unknown [id number] 2.840.1.694726.3.579. 2.1258 1943 Unknown [id number] 2.840.1.384774.3.579. 2.1258 1943 Unknown [id number] 2.840.1.442936.3.579. 2.1258 1943 Unknown [id number] 2.840.1.283780.3.579. 2.1258 1943 Unknown [id number] 2.16840.1.368602.3.579. 2. 1943 Unknown [id number] 2.16840.1.959191.3.579. 2. 1943 Unknown [id number] 2.16840.1.509854.3.579. 2. 1943 Unknown [id number] 2.16840.1.514154.3.579. 2. 1943 Unknown [id number] 2.16.840.1.385073.3.579. 2.196 1943 Unknown [id number] 2.16.840.1.471498.3.579. 2.196 1943 Unknown [id number] 2.16.840.1.109955.3.579. 2.196 1943 Unknown [id number] 2.16.840.1.959599.3.579. 2.196 1943 Unknown [id number] 2.16.840.1.541288.3.579. 2.196 1943 Unknown [id number] 2.16.840.1.551033.3.579. 2.196 Medicare [id number] Unknown [id number] 2.16.840.1.261574.3.579. 2.531 Unknown [id number] 2.16.840.1.953766.3.579. 2.531 Unknown [id number] 2.16.840.1.894870.3.579. 2.531 Unknown [id number] 2.16.840.1.228221.3.579. 2.531 Unknown [id number] 2.16.840.1.575195.3.579. 2.531 Unknown [id number] 2.16.840.1.095638.3.579. 2.531 Social History Date Type Detail Facility Start: 12-07-2021 End: 12-23-2022 Tobacco smoking status Never smoked tobacco (finding) [facility] Start: 03-17-2023 End: 09-20-2023 Sex Assigned At Male [facility] Tobacco smoking status Never [facility] Start: 01-03-2019 End: 12-23-2022 Tobacco use and exposure Smokeless tobacco non-user [facility] Start: 05-06-2022 End: 05-22-2025 Alcohol intake Current drinker of alcohol (finding) [facility] Start: 05-08-2017 History SDOH Alcohol Comment rare [facility] Start: 1945 Sex Assigned At Not on file [facility] Start: 04-26-2022 End: 01-15-2025 Exposure to SARS-CoV-2 (event) Not sure [facility] Work Phone: Start: 1945 Sex Assigned At Male F [facility] Start: 03-17-2023 End: 09-20-2023 Caffeine use Caffeine use -[facility] 250 DO Work Phone: Comment on above: 2 CANS DAILY OF CAFF IENE FREE OR DIET POP; Start: 09-20-2023 Alcohol intake Ex-drinker (finding) [facility] Work Phone: Start: 09-07-2023 End: 01-15-2025 [...] Start: 07-04-2024 End: 09-13-2024 Sex Male (finding) [facility] Start: 02-14-2025 SDOH Follow up SDOH Follow up [facility] Work Phone: Goals Date Patient Goal Desired Activity /State Functional Status Date Assessment Result Facility 05-22-2025 Patient Health Questionnaire 2 item (PHQ-2) [Reported] [facility] 04-01-2025 Patient Health Questionnaire 2 item (PHQ-2) [Reported] [facility] 04-01-2025 PHQ-9 quick depressi on assessment panel [Reported.PHQ] [facility] 02-18-2025 Patient Health Questionnaire 2 item (PHQ-2) [Reported] [facility] 02-18-2025 PHQ-9 quick depressi on assessment panel [Reported.PHQ] [facility] 12-05-2024 Patient Health Questionnaire 2 item (PHQ-2) [Reported] [facility] 09-13-2024 Functional status Patient at Baseline [facility] Work Phone: 09-11-2024 Functional status 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 Baseline [facility] Work Phone: 07-31-2024 Functional status 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 Baseline [facility] Work Phone: 07-12-2024 Functional status Patient at Baseline [facility] Work Phone: 07-09-2024 Functional status Patient Not at Baseline [facility] Work Phone: 07-04-2024 Functional status Patient at Baseline [facility] Work Phone: 06-22-2024 Functional status 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 [facility] Work Phone: 06-19-2024 Functional status Patient Not at Baseline [facility] Work Phone: 06-10-2023 Functional status Patient at Baseline [facility] Work Phone: 05-21-2023 Functional status 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 [facility] Work Phone: 03-29-2022 Functional Status N/A [facility] 02-17-2022 Functional Status No [facility] 02-01-2022 Functional Status N/A [facility] Alyce Mental Status Date Assessment Result Facility 09-13-2024 Cognitive function Patient at Baseline [facility] Work Phone: 09-11-2024 Cognitive function Patient at Baseline [facility] Work Phone: 07-31-2024 Cognitive function Patient at Baseline [facility] Work Phone: 07-12-2024 Cognitive function Patient at Baseline [facility] Work Phone: 07-09-2024 Cognitive function Cognitive Sta tus Patient at Baseline [facility] Work Phone: 07-04-2024 Cognitive function Patient at Baseline [facility] Work Phone: 06-22-2024 Cognitive function Patient at Baseline [facility] Work Phone: 06-19-2024 Cognitive function Cognitive Sta tus Patient at Baseline [facility] Work Phone: 06-10-2023 Cognitive function Cognitive Sta tus Patient at Baseline [facility] Work Phone: 05-21-2023 Cognitive function Cognitive Sta tus Patient at Baseline [facility] Work Phone: Clinical Notes 12-07-2021 to 05-22-2025 LORENA COELLO - 05/22/2025 2:30 PM EDTReal Og DPM - 04/24/2025 2:50 PM EDTTelephone [...] ONE DAILY MENS 50+ADVANCED PO) nystatin (Mycostatin) 601353 UNIT/GM powder omega-3 (Fish Oil) 1000 MG [...] Diagnosis Date Acute respiratory failure with hypoxia ([facility]) 11/17/2023 Acute respiratory insufficiency 12/15/2018 d/t Pulmonary Emboli MATT (acute kidney injury) 09/17/2024 Allergic rhinitis due to other allergen Autoimmune disorder ([facility]) Bilateral pulmonary embolism ([facility]) 2019 Acute Hypoxic Resp. 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 Cervical radiculopathy at C8 05/2017 CTS (carpal tunnel syndrome) 05/2017 Bilateral Essential hypertension, benign Facial droop Head injury with fracture of skull ([facility]) 09/17/2024 History of being hospitalized 06/19/2024 [...] edema 2009 /pucker Muscle cramp Myasthenia gravis ([facility]) 12/27/2017 / dyspnea Myasthenic crisis ([facility]) 05/10/2023 Obesity Obstructive sleep apnea (adult) (pediatric) Pulmonary emboli ([facility]) 11/17/2023 Pulmonary embolism (HCC) 11/2018 Pure hypercholesterolemia [...] - Flu vaccine, high dose seasonal, PF ([id number]) (Fluzone High Dose) Tolerated vaccination without difficulty. No follow-ups on file. documented in this encounter [facility] 04-24-2025 History of Present illness Narrative Patient: [...] droop Head injury with fracture of skull ([facility]) 09/17/2024 History of being hospitalized 06/19/2024 Myasthenia [...] edema 2009 /pucker Muscle cramp Myasthenia gravis (HCC) 12/27/2017 / dyspnea Myasthenic crisis (HCC) 05/10/2023 Obesity Obstructive sleep apnea (adult) (pediatric) [...] PO), , Disp: , Rfl: nystatin (Mycostatin) 850859 UNIT/GM powder, , Disp: , Rfl: omega-3 [...] min Stress: No Stress Concern Present (03/17/2023) [employer] - Occupational Stress Questionnaire Feeling of Stress : Only a little Social Connections: Moderately Isolated (03/17/2023) Social Connection and Isolation Panel [NHANES] Frequency of Communication with Friends and Family: More than three times a week Frequency of Social Gatherings with Friends and Family: Once a week Attends [employer] Services: Never Active Member of Clubs or [...] Real Og DPM documented in this encounter [facility] 04-01-2025 Telephone encounter Note OARRS reviewed, Rx sent into patient's pharmacy. [facility] 04-01-2025 Miscellaneous Notes OARRS reviewed, Rx sent into patient's pharmacy. documented in this encounter [facility] 04-01-2025 History of Present illness Narrative Images [...] ONE DAILY MENS 50+ADVANCED PO) nystatin (Mycostatin) 534871 UNIT/GM powder omega-3 (Fish Oil) 1000 MG [...] droop Head injury with fracture of skull ([facility]) 09/17/2024 History of being hospitalized 06/19/2024 Myasthenia [...] edema 2008 /pucker Muscle cramp Myasthenia gravis ([facility]) 12/27/2017 / dyspnea Myasthenic crisis ([facility]) 05/10/2023 Obesity Obstructive sleep apnea (adult) (pediatric) Pulmonary emboli ([facility]) 11/17/2023 Pulmonary embolism ([facility]) 11/2018 Pure hypercholesterolemia Shortness of breath Superficial thrombophlebitis 12/16/2018 Rt Thigh Syncope 09/17/2024 Tremor Troponin I above reference range 11/17/2023 Urothelial carcinoma ([facility]) 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 documented in this encounter [facility] 02-18-2025 Telephone encounter Note Kimberly Wright filled the Percocet for him most recently. He will need to reach out to her office for the refill. [facility] 02-18-2025 Miscellaneous Notes Kimberly Wright filled the Percocet for him most recently. He will need to reach out to her office for the refill. documented in this encounter [facility] 02-18-2025 History of Present illness Narrative Images from the original note were not included. Subjective Patient ID: Taurus Garcia is a 79 y.o. male who presents for No chief complaint on file.. Taurus presents today for having pain that is also making it difficult to walk. This all started a week ago Monday. He has EMS take him to [place]. He even states that he can't take care of himself. He states she thinks he needs to go to the [place] for help. Over the past 2 weeks, [...] ONE DAILY MENS 50+ADVANCED PO) nystatin (Mycostatin) 455060 UNIT/GM powder omega-3 (Fish Oil) 1000 MG [...] droop Head injury with fracture of skull ([facility]) 09/17/2024 History of being hospitalized 06/19/2024 Myasthenia [...] edema 2009 /pucker Muscle cramp Myasthenia gravis ([facility]) 12/27/2017 / dyspnea Myasthenic crisis ([facility]) 05/10/2023 Obesity Obstructive sleep apnea (adult) [...] follow-ups on file. documented in this encounter [facility] 02-14-2025 Hospital Discharge instructions Ambulatory OrdersInitiate Home Health Time Frame: 02/14/25, Location: Determined By Patient Additional Instructions Home health to manage: -RN/PT/OT to eval and treat -Monitor VS per protocol -High fall risk precautions -Perform neuro assessments -Assist with medication management and education [facility] Work Phone: 02-13-2025 History and physi nabila note Note Date/Time February 13, 2025 6:09pm [facility] [address] [place] [address] Hospitalist H&P Signed Patient: Taurus Garcia MR#: [id number] : 1945 Acct:[id number] Age/Sex: 79 / M Adm Date: 5 Loc: Room: [address] [place] [address] Type: ADM INOo Attending Dr: Jarret Garza [...] chronic back pain with narcotics presented to [facility] with shortness of breath concerning for myasthenia [...] mg PO DAILY 12/27/17 [History Confirmed 02/13/25] qcwfllka-pna-kkhcx acid 0.4 mg-lycopene 300 mcg-lutein 250 mcg [...] % (Auto) 16.7 % (.) 02/13/25 11:19 [place] % (Auto) 15.5 % (.) 02/13/25 11:19 Eos % (Auto) 1.0 % (.) 02/13/25 11:19 Baso % (Auto) 1.2 % (.) 02/13/25 11:19 Nucleat RBC Rel Count 0.0 /100 WBC (0-0.5) 02/13/25 11:19 Neut # (Auto) 4.8 x10E3/uL (1.8-7.7) 02/13/25 11:19 Lymph # (Auto) 1.2 x10E3/uL (1.00-4.8) 02/13/25 11:19 [place] # (Auto) 1.1 x10E3/uL (0.0-0.8) H 02/13/25 [...] pH 5.5 (5.0-9.0) 02/13/25 12:55 Ur Specific [place] 1.018 (1.001-1.030) 02/13/25 12:55 Urine Protein Negative [...] <Electronically signed by Jarret Garza MD> 02/13/25 1265 [facility] Work Phone: 1(669) 601-273306-26-2025 Evaluation note* Diagnosis Onset Date Resolution Status Admit Date Chronic anticoagulation acute J une 2024 4:31pm Generalized weakness acute February 13, 2025 4:31pm Myasthenia gravis acute February 132024 4:31pm [facility] Work Phone: 1(926) 270-694806-26-2025 Evaluation note* Diagnosis Onset Date Resolution Status Admit Date Chronic anticoagulation inactive J [facility] 2024 4:31pm Generalized weakness inactive February 13, 2025 4:31pm Myasthenia gravis inactive February 132024 4:31pm [facility] Work Phone: 1(542) 756-190306-26-2025 Evaluation note* Diagnosis Onset Date Resolution Status Admit Date Myasthenia gravis acute February 132024 4:31pm Chronic anticoagulation inactive J [facility] 2024 4:31pm Generalized weakness inactive February 13, [...] Septembe r 2024 1:25pm Myasthenia gravis acute [facility] er 2024 1:25pm [facility] Work Phone: 1(312) 747-761806-26-2025 [place] [address] Hospitalist H&P Signed Patient: Taurus Garcia MR#: [id number] : 1945 Acct:[id number] Age/Sex: 79 / M Adm Date: 5 Loc: Room: [address] [place] [address] Type: ADM INOo Attending Dr: Jarret Garza [...] chronic back pain with narcotics presented to [facility] with shortness of breath concerning for myasthenia [...] mg PO DAILY 12/27/17 [History Confirmed 02/13/25] mvryjwvy-nba-tjjwk acid 0.4 mg-lycopene 300 mcg-lutein 250 mcg [...] % (Auto) 16.7 % (.) 02/13/25 11:19 [place] % (Auto) 15.5 % (.) 02/13/25 11:19 Eos % (Auto) 1.0 % (.) 02/13/25 11:19 Baso % (Auto) 1.2 % (.) 02/13/25 11:19 Nucleat RBC Rel Count 0.0 /100 WBC (0-0.5) 02/13/25 11:19 Neut # (Auto) 4.8 x10E3/uL (1.8-7.7) 02/13/25 11:19 Lymph # (Auto) 1.2 x10E3/uL (1.00-4.8) 02/13/25 11:19 [place] # (Auto) 1.1 x10E3/uL (0.0-0.8) H 02/13/25 [...] pH 5.5 (5.0-9.0) 02/13/25 12:55 Ur Specific [place] 1.018 (1.001-1.030) 02/13/25 12:55 Urine Protein Negative [...] 02/13/25 16 37 Signed By: 02/13/25 1809 [facility]06-26-2025 Radiology Diagnostic study note [facility] Main [place] [address] [place] [address] CT Scan Report Signed Patient: Taurus Garcia MR#: [id number] : 1945 Acct:[id number] Age/Sex: 79 / M ADM Date: 5 Loc: ER Room: Type: [facility] ER Attending Dr: Copies to: Kathleen Parker APRN~ Ordering Provider: Kathleen Parker APRN Date of Service: 02/13/25 CT/CT angio neck: weakness ([id number]) CT/CT angio head: weakness CT angiogram head and neck performed with contrast INDICATION: Weakness COMPARISON: CT angiogram head and neck 07/09/2024 CT angiogram images obtained through the head and neck with Sagittal and coronalMIP as well as 3-D volume rendered reconstructions of the carotid arteries and [place] were reviewed. Stenosisis evaluated using [...] Bustos M.D. 02/13/2025 3:25 PM Dictation Location: RADIO-PC-29 Transcribed By: KRISSY 02/13/251524 Dictated By: Julian Bustos MD 02/13/251516 Signed By: 02/13/25 152 [facility] Work Phone: 1(863) 992-500906-26-2025 [facility] [place] [address] CT Scan Report Signed Patient: Taurus Garcia MR#: [id number] : 1945 Acct:[id number] Age/Sex: 79 / M ADM Date: 5 Loc: ER Room: Type: [facility] ER Attending Dr: Copies to: Kathleen [...] Bustos M.D. 02/13/2025 3:14 PM Dictation Location: RADIO-PC-29 Transcribed By: KRISSY 02/13/25 151 Dictated By: Julian Bustos MD 02/13/251509 Signed By: 02/13/251513 [facility] Work Phone: 1(463) 682-336306-12-2025 History of Present illness Narrative* Real Og [...] rhinitis due to other allergen Autoimmune disorder ([facility]) Bilateral pulmonary embolism (CMS/HCC) 2019 Acute Hypoxic Resp. 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 Cervical radiculopathy at C8 05/2017 CTS (carpal tunnel syndrome) 05/2017 Bilateral Essential hypertension, benign (CMS/HCC) Facial droop Head injury with fracture of skull ([facility]) 09/17/2024 History of being hospitalized 06/19/2024 [...] emboli 11/17/2023 Pulmonary embolism 11/2018 Pure hypercholesterolemia (CMS/HCC) Shortness of breath [...] PO), , Disp: , Rfl: nystatin (Mycostatin) 408612 UNIT/GM powder, , Disp: , Rfl: omega-3 [...] min Stress: No Stress Concern Present (03/17/2023) [employer] - Occupational Stress Questionnaire Feeling of Stress : Only a little Social Connections: Moderately Isolated (03/17/2023) Social Connection and Isolation Panel [NHANES] Frequency of Communication with Friends and Family: More than three times a week Frequency of Social Gatherings with Friends and Family: Once a week Attends Pentecostalism Services: Never Active Member of Clubs or [...] condition. Real Og DPM documented in this encounterGolden Valley Memorial [id number] History of Present illness Narrative* Willy Leyva APRN-DIRECTOR EMPLOYMENT - 01/15/2025 10:00 AM EDT Chief Complaint [...] unit/gram powder 1 Application, As needed omega 1-ntl-pov-fish oil 360 mg-108 mg- 180 mg-1,200 mg [...] Dr. Hoover as scheduled Willy Leyva MSN, ANABELLDIRECTOR EMPLOYMENT, PMHNP-[facility] [place], [place] Please excuse any errors in grammar or translation related to this dictation. Voice recognition software was utilized to prepare this document. documented in this [facility] Work Phone: [phone] 226-694305-28-2025 Instructions* Patient Instructions* SHANT Mock - 01/15/2025 [...] as scheduled documented in this [facility] Work Phone: [phone] 220-309005-19-2025 History of Present illness Narrative* Stanley Saunders, - 01/06/2025 12:30 PM EDT Images [...] rhinitis due to other allergen Autoimmune disorder ([facility]) Bilateral pulmonary embolism (CMS/HCC) 2019 Acute Hypoxic Resp. 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 Cervical radiculopathy at C8 05/2017 CTS (carpal tunnel syndrome) 05/2017 Bilateral Essential hypertension, benign ([facility]) Facial droop Head injury with fracture of skull ([facility]) 09/17/2024 History of being hospitalized 06/19/2024 Myasthenia Gravis Exacerbation, Weakness, Dyspnea History of being hospitalized 07/09/2024 Generalized Weakness, MATT History of being hospitalized 07/28/2024 Syncope, Head injury, Generalized weakness, Hypomagnesemia History of being hospitalized 09/11/2024 Myasthenia Gravis Crisis History of echocardiogram 12/15/2018 EF 60-65%, LVH Hypertension ([facility]) Impaired glucose tolerance test Oral Lumbosacral spondylosis without myelopathy LVH (left ventricular hypertrophy) 12/15/2018 ECHO EF 60-65% Macular edema 2008 /pucker Muscle cramp Myasthenia gravis 12/27/2017 / dyspnea Myasthenic crisis ([facility]) 05/10/2023 Obesity Obstructive sleep apnea (adult) (pediatric) Pulmonary emboli 11/17/2023 Pulmonary embolism 11/2018 Pure hypercholesterolemia ([facility]) Shortness of breath Superficial thrombophlebitis 12/16/2018 Rt Thigh Syncope 09/17/2024 Tremor Troponin I above reference range 11/17/2023 Urothelial carcinoma ([facility]/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 UTI, [...] wrist extensors , wrist flexor , and air traffic instructor strength 5/5. LUE strength deltoid , biceps , triceps , wrist extensors , wrist flexor , and air traffic instructor strength 5/5. RLE strength iliopsoas, quadriceps, tibialis [...] reflex 0. LLE knee reflex 0. Coordination: [id number] testing normal. Rapid alternating movements are normal. Gait: Utilizing walker. Review and summary of old records: I reviewed documentation from the patient's inpatient hospitalization at [facility] from 09/11/2024 to 09/13/2024. The patient presented to [facility] at that time due to mild increase [...] from the patient's emergency department visit at [facility] on 02/12/2024. The patient presented with mild [...] MRI of the brain without contrast at [facility] on 02/20/18: Unremarkable EMG of the bilateral upper extremities on 06/19/17: Bilateral median neuropathy such as in carpal tunnel syndrome which is mild in degree electrically. Also a remote right C8 radiculopathy. Assessment/Plan Diagnoses and all orders for this visit: Myasthenia gravis ([facility]) Mr. Pascual is an 79-year-old male [...] mg PO QID. He reports evaluation at [facility] in late August 2024 due to mild [...] or syncope - I offered referral to [facility] for a second opinion regarding [...] index (BMI) of45.0 to 49.9 in adult ([facility]) The patient is obese. PLAN: - [...] [facility] documented in this encounterGolden Valley Memorial [id number] History of Present illness Narrative* Real Og [...] Diagnosis Date Acute respiratory failure with hypoxia ([facility]) 11/17/2023 Acute respiratory insufficiency 12/15/2018 d/t Pulmonary Emboli MATT (acute kidney injury) ([facility]) 09/17/2024 Allergic rhinitis due to other allergen Autoimmune disorder ([facility]) Bilateral pulmonary embolism ([facility]) 2019 Acute Hypoxic Resp. 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 Cervical radiculopathy at C8 05/2017 CTS (carpal tunnel syndrome) 05/2017 Bilateral Essential hypertension, benign ([facility]) Facial droop Head injury with fracture of skull ([facility]) 09/17/2024 History of being hospitalized 06/19/2024 Myasthenia Gravis Exacerbation, Weakness, Dyspnea History of being hospitalized 07/09/2024 Generalized Weakness, MATT History of being hospitalized 07/28/2024 Syncope, Head injury, Generalized weakness, Hypomagnesemia History of being hospitalized 09/11/2024 Myasthenia Gravis Crisis History of echocardiogram 12/15/2018 EF 60-65%, LVH Hypertension ([facility]) Impaired glucose tolerance test Oral Lumbosacral spondylosis without myelopathy LVH (left ventricular hypertrophy) 12/15/2018 ECHO EF 60-65% Macular edema 2008 /pucker Muscle cramp Myasthenia gravis 12/27/2017 / dyspnea Myasthenic crisis ([facility]) 05/10/2023 Obesity Obstructive sleep apnea (adult) (pediatric) Pulmonary emboli 11/17/2023 Pulmonary embolism 11/2018 Pure hypercholesterolemia ([facility]) Shortness of breath Superficial thrombophlebitis 12/16/2018 Rt Thigh Syncope 09/17/2024 Tremor Troponin I above reference range 11/17/2023 Urothelial carcinoma ([facility]) 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 male that presents today for a follow up of left great toe fracture with laceration with cellulitis and has been taking oral antibiotics and using walking boot with positive improvement. Patient rates pain a 10. Allergies: No Known Allergies Past Medical History: Past Medical History: Diagnosis Date Acute respiratory failure with hypoxia ([facility]) 11/17/2023 Acute respiratory insufficiency 12/15/2018 d/t Pulmonary Emboli MATT (acute kidney injury) ([facility]) 09/17/2024 Allergic rhinitis due to other allergen Autoimmune disorder ([facility]) Bilateral pulmonary embolism ([facility]) 2019 Acute Hypoxic Resp. 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 Cervical radiculopathy at C8 05/2017 CTS (carpal tunnel syndrome) 05/2017 Bilateral Essential hypertension, benign ([facility]) Facial droop Head injury with fracture of skull ([facility]) 09/17/2024 History of being hospitalized 06/19/2024 Myasthenia Gravis Exacerbation, Weakness, Dyspnea History of being hospitalized 07/09/2024 Generalized Weakness, MATT History of being hospitalized 07/28/2024 Syncope, Head injury, Generalized weakness, Hypomagnesemia History of being hospitalized 09/11/2024 Myasthenia Gravis Crisis History of echocardiogram 12/15/2018 EF 60-65%, LVH Hypertension ([facility]) Impaired glucose tolerance test Oral Lumbosacral spondylosis without myelopathy LVH (left ventricular hypertrophy) 12/15/2018 ECHO EF 60-65% Macular edema 2009 /pucker Muscle cramp Myasthenia gravis 12/27/2017 / dyspnea Myasthenic crisis ([facility]) 05/10/2023 Obesity Obstructive sleep apnea (adult) (pediatric) Pulmonary emboli 11/17/2023 Pulmonary embolism 11/2018 Pure hypercholesterolemia ([facility]) Shortness of breath Superficial thrombophlebitis 12/16/2018 Rt Thigh Syncope 09/17/2024 Tremor Troponin I above reference range 11/17/2023 Urothelial carcinoma ([facility]) 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 [...] food Oral, Disp: , Rfl: nystatin (Mycostatin) [id number] UNIT/GM powder, APPLY TO THE AFFECTED AREA(S) [...] toe Real Og DPM documented in this encounterGolden Valley Memorial [id number] History of Present illness Narrative* Real Og [...] Diagnosis Date Acute respiratory failure with hypoxia ([facility]) 11/17/2023 Acute respiratory insufficiency 12/15/2018 d/t Pulmonary Emboli MATT (acute kidney injury) ([facility]) 09/17/2024 Allergic rhinitis due to other allergen Autoimmune disorder ([facility]) Bilateral pulmonary embolism ([facility]) 2019 Acute Hypoxic Resp. 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 Cervical radiculopathy at C8 05/2017 CTS (carpal tunnel syndrome) 05/2017 Bilateral Essential hypertension, benign ([facility]) Facial droop Head injury with fracture of skull ([facility]) 09/17/2024 History of being hospitalized 06/19/2024 Myasthenia Gravis Exacerbation, Weakness, Dyspnea History of being hospitalized 07/09/2024 Generalized Weakness, MATT History of being hospitalized 07/28/2024 Syncope, Head injury, Generalized weakness, Hypomagnesemia History of being hospitalized 09/11/2024 Myasthenia Gravis Crisis History of echocardiogram 12/15/2018 EF 60-65%, LVH Hypertension ([facility]) Impaired glucose tolerance test Oral Lumbosacral spondylosis without myelopathy LVH (left ventricular hypertrophy) 12/15/2018 ECHO EF 60-65% Macular edema 2008 /pucker Muscle cramp Myasthenia gravis 12/27/2017 / dyspnea Myasthenic crisis ([facility]) 05/10/2023 Obesity Obstructive sleep apnea (adult) (pediatric) Pulmonary emboli 11/17/2023 Pulmonary embolism 11/2018 Pure hypercholesterolemia ([facility]) Shortness of breath Superficial thrombophlebitis 12/16/2018 Rt Thigh Syncope 09/17/2024 Tremor Troponin I above reference range 11/17/2023 Urothelial carcinoma ([facility]) 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 [...] food Oral, Disp: , Rfl: nystatin (Mycostatin) [id number] UNIT/GM powder, APPLY TO THE AFFECTED AREA(S) [...] removal Real Og DPM documented in this encounterGolden Valley Memorial [id number] History of Present illness Narrative* Leela Bocanegra, [...] every day with food Oral nystatin (Mycostatin) [id number] UNIT/GM powder APPLY TO THE AFFECTED AREA(S) [...] Diagnosis Date Acute respiratory failure with hypoxia ([facility]) 11/17/2023 Acute respiratory insufficiency 12/15/2018 d/t Pulmonary Emboli MATT (acute kidney injury) ([facility]) 09/17/2024 Allergic rhinitis due to other allergen Autoimmune disorder ([facility]) Bilateral pulmonary embolism ([facility]) 2019 Acute Hypoxic Resp. 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 Cervical radiculopathy at C8 05/2017 CTS (carpal tunnel syndrome) 05/2017 Bilateral Essential hypertension, benign ([facility]) Facial droop Head injury with fracture of skull ([facility]) 09/17/2024 History of being hospitalized 06/19/2024 [...] emboli 11/17/2023 Pulmonary embolism 11/2018 Pure hypercholesterolemia ([facility]) Shortness of breath Superficial thrombophlebitis 12/16/2018 Rt Thigh Syncope 09/17/2024 Tremor Troponin I above reference range 11/17/2023 Urothelial carcinoma (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 documented in this encounterGolden Valley Memorial [id number] History of Present illness Narrative* Real Og, SRIDHAR - 11/21/2024 2:40 PM EDT Patient: Taurus [...] Diagnosis Date Acute respiratory failure with hypoxia ([facility]) 11/17/2023 Acute respiratory insufficiency 12/15/2018 d/t Pulmonary Emboli MATT (acute kidney injury) ([facility]) 09/17/2024 Allergic rhinitis due to other allergen Autoimmune disorder ([facility]) Bilateral pulmonary embolism ([facility]) 2019 Acute Hypoxic Resp. 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 Cervical radiculopathy at C8 05/2017 CTS (carpal tunnel syndrome) 05/2017 Bilateral Essential hypertension, benign ([facility]) Facial droop Head injury with fracture of skull ([facility]) 09/17/2024 History of being hospitalized 06/19/2024 Myasthenia Gravis Exacerbation, Weakness, Dyspnea History of being hospitalized 07/09/2024 Generalized Weakness, MATT History of being hospitalized 07/28/2024 Syncope, Head injury, Generalized weakness, Hypomagnesemia History of being hospitalized 09/11/2024 Myasthenia Gravis Crisis History of echocardiogram 12/15/2018 EF 60-65%, LVH Hypertension ([facility]) Impaired glucose tolerance test Oral Lumbosacral spondylosis without myelopathy LVH (left ventricular hypertrophy) 12/15/2018 ECHO EF 60-65% Macular edema 2008 /pucker Muscle cramp Myasthenia gravis ([facility]) 12/27/2017 / dyspnea Myasthenic crisis ([facility]) 05/10/2023 Obesity Obstructive sleep apnea (adult) (pediatric) Pulmonary emboli ([facility]) 11/17/2023 Pulmonary embolism ([facility]) 11/2018 Pure hypercholesterolemia ([facility]) Shortness of breath Superficial thrombophlebitis 12/16/2018 Rt Thigh Syncope 09/17/2024 Tremor Troponin I above reference range 11/17/2023 Urothelial carcinoma ([facility]) 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 [...] food Oral, Disp: , Rfl: nystatin (Mycostatin) [id number] UNIT/GM powder, APPLY TO THE AFFECTED AREA(S) [...] min Stress: No Stress Concern Present (03/17/2023) [employer] - Occupational Stress Questionnaire Feeling of Stress : Only a little Social Connections: Moderately Isolated (03/17/2023) Social Connection and Isolation Panel [NHANES] Frequency of Communication with Friends and Family: More than three times a week Frequency of Social Gatherings with Friends and Family: Once a week Attends Pentec[employer] Services: Never Active Member of Clubs or [...] condition. Real Og DPM documented in this encounterGolden Valley Memorial [id number] Evaluation + Plan note* Assessment & Plan Note - SHANT Mock - 11/04/2024 4:29 PM EDT Associated Problem(s): Localized edema Presents to the office today with a 3-week history of progressive increasing bilateral lower extremity edema. He has gained approximately 8 pounds over the last 2 weeks. PCP increase Lasix 40 mg daily x 5 days (last dose yesterday) minimal benefit. [facility] Work Phone: [phone] Miscellaneous Notes* Assessment & Plan Note - [...] sinus rhythm with PVC. documented [facility] encounterDo[facility] Work Phone: [phone] 267-662803-17-2025 Evaluation + Plan note* Assessment & Plan Note - SHANT Mock - 11/04/2024 4:28 PM EDTAssociated Problem(s): BMI 45.0-49.9, adult (Multi) Reviewed the merits of healthy lifestyle choices on overall cardiovascular health. [facility] Work Phone: [phone]) 804-683203-17-2025 Evaluation + Plan note* Assessment & Plan Note - SHANT Mock - 11/04/2024 4:28 PM EDTAssociated Problem(s): Essential hypertension Presents with reported elevated blood pressure with recent fluid retention. [facility] Work Phone: [phone] 440-697203-17-2025 Evaluation + Plan note* Assessment & Plan Note - SHANT Mock - 11/04/2024 4:28 PM EDTAssociated Problem(s): Paroxysmal atrial fibrillation (Multi) EKG last week was sinus rhythm with PVC. [facility] Work Phone: [phone] History of Present illness Narrative* SHANT Mock [...] (MULTI VITAMIN ORAL) 1 tablet, Daily omega 6-imz-cfr-fish oil 360 mg-108 mg- 180 mg-1,200 mg [...] contact the office if new symptoms arise. AIR SAM[employer]ER one month Willy Leyva MSN, MEDICAL STAFF SPECIALIST-DIRECTOR EMPLOYMENT, PMHNP-[facility] [employer] [place], [place] Please excuse any errors in grammar or translation related to this dictation. Voice recognition software was utilized to prepare this document. documented in this encounterDoctors Hospital Work Phone: [phone] 480-163303-17-2025 Instructions* Patient Instructions* SHANT Mock - 11/04/2024 [...] contact the office if new symptoms arise. AIR SAMPLER one month documented in this encounterDoctors Hospital Work Phone: [phone] History of Present illness Narrative* Jimena Rice CMA - 10/11/2024 3:00 PM EST Patient here for EKG visit ordered by Willy Leyva AIR SAMPLER due to bradycardia. Willy Leyva AIR SAMPLER in suite to review EKG prior to [...] to the lasix increase. To Willy Leyva AIR SAMPLER to read To Dr. Hoover for review upon return Vitals: 10/11/24 1502 BP: 148/80 BP Location: Right arm Patient Position: Sitting Pulse: 63 Weight: 141 kg (310 lb) Height: 1.727 m (5' 8 ) EKG done in office today documented in this [facility] Work Phone: [phone]) 843-486902-19-2025 History of Present illness Narrative* Leela Bocanegra [...] on 09/17/2024) 100 tablet 3 nystatin (Mycostatin) 788040 UNIT/GM powder APPLY TO THE AFFECTED AREA(S) [...] Diagnosis Date Acute respiratory failure with hypoxia ([facility]) 11/17/2023 Acute respiratory insufficiency 12/15/2018 d/t Pulmonary Emboli MATT (acute kidney injury) (CMS/HCC) 09/17/2024 Allergic rhinitis due to other allergen Autoimmune disorder (CMS/HCC) Bilateral pulmonary embolism (CMS/HCC) 2019 Acute Hypoxic Resp. 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 Cervical radiculopathy at C8 05/2017 CTS (carpal tunnel syndrome) 05/2017 Bilateral Essential hypertension, benign ([facility]) Facial droop Head injury with fracture of skull ([facility]) 09/17/2024 History of being hospitalized 06/19/2024 Myasthenia Gravis Exacerbation, Weakness, Dyspnea History of being hospitalized 07/09/2024 Generalized Weakness, MATT History of being hospitalized 07/28/2024 Syncope, Head injury, Generalized weakness, Hypomagnesemia History of being hospitalized 09/11/2024 Myasthenia Gravis Crisis History of echocardiogram 12/15/2018 EF 60-65%, LVH Hypertension ([facility]) Impaired glucose tolerance test Oral Lumbosacral spondylosis without myelopathy LVH (left ventricular hypertrophy) 12/15/2018 ECHO EF 60-65% Macular edema 2009 /pucker Muscle cramp Myasthenia gravis ([facility]) 12/27/2017 / dyspnea Myasthenic crisis ([facility]) 05/10/2023 Obesity Obstructive sleep apnea (adult) (pediatric) Pulmonary emboli ([facility]) 11/17/2023 Pulmonary embolism ([facility]) 11/2018 Pure hypercholesterolemia ([facility]) Shortness of breath Superficial thrombophlebitis 12/16/2018 Rt Thigh Syncope 09/17/2024 Tremor Troponin I above reference range 11/17/2023 Urothelial carcinoma ([facility]) 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 documented in this encounterGolden Valley Memorial HospitalLxmbxefxoj65-20-7144 Telephone encounter Note* Telephone Encounter - TEMITOPE Serrano - 09/18/2024 10:37 AM EST Acknowledged. [facility] HospitalZcimgyelrs33-37-2049 Miscellaneous Notes* Telephone Encounter - TEMITOPE Serrano - 09/18/2024 10:37 AM EST Acknowledged. documented in this encounterGolden Valley Memorial HospitalDapcutxfvx57-27-8814 History of Present illness Narrative* TEMITOPE Serrano - 09/17/2024 2:30 PM EST Images from the original note were not included. Subjective Patient ID: Taurus Garcia is a 78 y.o. male who presents for [facility] hospital follow up. Flowsheet Row Patient Outreach from 09/10/2024 in [facility] with Dee Haddad LPN Hospital Information ED, Hospital or Jail Facility Discharge? Jail Facility Patient has been contacted within two business days of discharge No [due to not know he was discharged in a timely manner] Have two attempts been made to contact the patient within two business days of being discharged? No Discharge Date 09/05/24 Discharged To: Home Setting Jail Facilities Lidya Richards Admission Date 07/31/24 Medications [...] yes What is the home health agency? [facility] PHYSICAL [facility]AP[facility] ONLY Has home health visited [...] are swelling. When he was in [facility] [place] he had a lift chair and was [...] on 09/17/2024) 100 tablet 3 nystatin (Mycostatin) 532281 UNIT/GM powder APPLY TO THE AFFECTED AREA(S) [...] the morning. 100 tablet 3 [DISCONTINUED] HYDROcodone-acetaminophen ([place]) 5-325 MG tablet Take 1 tablet by [...] Diagnosis Date Acute respiratory failure with hypoxia ([facility]) 11/17/2023 Acute respiratory insufficiency 12/15/2018 d/t Pulmonary Emboli MATT (acute kidney injury) ([facility]) 09/17/2024 Allergic rhinitis due to other allergen Autoimmune disorder ([facility]) Bilateral pulmonary embolism ([facility]) 2019 Acute Hypoxic Resp. 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 Cervical radiculopathy at C8 05/2017 CTS (carpal tunnel syndrome) 05/2017 Bilateral Essential hypertension, benign (CMS/HCC) Facial droop Head injury with fracture of skull ([facility]) 09/17/2024 History of being hospitalized 06/19/2024 [...] I above reference range 11/17/2023 Urothelial carcinoma ([facility]) 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 [...] (CMS/HCC) The patient is seeing a medical instrument technician for this condition, treatment is deferred to [...] Hypertension, Medication Follow Up. documented in this encounterGolden Valley Memorial [id number] History of Present illness Narrative* Salma Kelley [...] lot.I do explain that we have a HEAT AND FROST INSULATOR who helps with used ones from [employer] [...] pursuing a used one.* documented in this [place] [employer] [facility]01-23-2025 Progress note Author Denzel Zamora [facility] Note Date/Time September 12, 2024 7 :24pm [facility] [address] [place] [address] Hospitalist Progress Note Signed Patient: Taurus Garcia MR#: [id number] : 1945 Acct:[id number] Age/Sex: 78 / M Adm Date: 5 Loc: Room: [address] [place] [address] Type: ADM INOo Attending Dr: Denzel Zamora [...] 08:59 15 mg DAILY DORI Administration Pyridostigmine [place] 60 mg 09/11/24 14:00 09/12/24 08:53 Pyridostigmine [place] 60 Mg Tablet PO 09/11/25 13:59 60 [...] and planned nerve block, recent admission to residential after admission in 07/2024for weakness, presented to [facility] with shortness of breath concerning for myasthenia [...] at this time - will admit to /telemetry largely for observation, neurology consultation to assess [...] <Electronically signed by Denzel Zamora MD> 09/12/241923 [facility] Work Phone: 1(539) 864-623501-23-2025 Progress note Author Jamel Packer [facility] Note Date/Time September 12, 2024 3 :52pm [facility] [address] [place] [address] Neurology Progress Note Signed Patient: Taurus Garcia MR#: [id number] : 1945 Acct:[id number] Age/Sex: 78 / M Adm Date: 5 Loc: Room: [address] [place] [address] Type: ADM INOo Attending Dr: Denzel Zamora [...] <Electronically signed by Jamel Packer DO> 09/12/24 1559 [facility] Work Phone: 1(396) 822-164501-22-2025 History and physical note Author Denzel Zamora [facility] Note Date/Time September 11, 2024 4 :18pm [facility] [address] [place] [address] Hospitalist H&P Signed Patient: Taurus Garcia MR#: [id number] : 1945 Acct:[id number] Age/Sex: 78 / M Adm Date: 5 Loc: Room: [address] [place] [address] Type: ADM IN Attending Dr: Denzel Zamora [...] and planned nerve block, recent admission to residential after admission in 07/2024for weakness, presented to [facility] with shortness of breath concerning for myasthenia [...] mg PO DAILY 12/27/17 [History Confirmed 09/11/24] qtldzkoi-lnh-gtyxd acid 0.4 mg-lycopene 300 mcg-lutein 250 mcg [...] and planned nerve block, recent admission to residential after admission in 07/2024for weakness, presented to [facility] with shortness of breath concerning for myasthenia [...] at this time - will admit to /telemetry largely for observation, neurology consultation to assess [...] signed by Denzel Zamora MD> 09/11/24 1618 [facility] Work Phone: 1(128) 441-946101-22-2025 Consult note Author Jamel Packer [facility] Note Date/Time September 11, 2024 4 :09pm [facility] [address] [place] [address] Neurology Consult Note Signed Patient: Taurus Garcia MR#: [id number] : 1945 Acct:[id number] Age/Sex: 78 / M Adm Date: 5 Loc: Room: [address] [place] [address] Type: ADM IN Attending Dr: Denzel Zamora MD Copies to: DO Komal Bajwa II, MD Rahul Prasad, MD~ HPI Consult Date: 09/11/24 [employer]: Jamel Packer DO [facility] Medical History Chronic [...] mg PO DAILY 12/27/17 [History Confirmed 09/11/24] ykdoxgby-yvp-tntfq acid 0.4 mg-lycopene 300 mcg-lutein 250 mcg [...] Aaron Mock M.D.09/11/2024 10:20 AM Dictation Location: [facility]- Therapy Recommendations Therapy Recommendations: ST Recommendations ST [...] <Electronically signed by Jamel Packer DO> 09/11/24 0297 [facility] Work Phone: 1(454) 976-399601-22-2025 History of Present illness Narrative* Leela Bocanegra NP - 09/11/2024 10:31 AM EST Pt needs refill documented in this encounterGolden Valley Memorial HospitalEkfmiszlqr52-21-0072 Consult note Author Jamel Packer [facility] Note Date/Time September 11, 2024 4 :09pm [facility] [address] [place] [address] Neurology Consult Note Signed Patient: Taurus Garcia MR#: [id number] : 1945 Acct:[id number] Age/Sex: 78 / M Adm Date: 5 Loc: Room: [address] [place] [address] Type: ADM IN Attending Dr: Denzel Zamora MD Copies to: DO Komal Bajwa II, MD Rahul Prasad, MD~ HPI Consult Date: 09/11/24 [employer]: Jamel Packer DO [facility] Medical History Chronic [...] mg PO DAILY 12/27/17 [History Confirmed 09/11/24] hdxrivtj-bxo-vquwc acid 0.4 mg-lycopene 300 mcg-lutein 250 mcg [...] Aaron Mock M.D.09/11/2024 10:20 AM Dictation Location: [place] [address] Therapy Recommendations Therapy Recommendations: ST Recommendations ST [...] <Electronically signed by Jamel Packer DO> 09/11/24 7459 [facility] Work Phone: 1([phone]) 231-853612-04-2024 History of Present illness Narrative* Leela Bocanegra, [...] obesity and lack ofexercise. Treatments tried: Used De Queen in the past for pain management. URI [...] DAILY WITH FOOD 180 tablet 3 HYDROcodone-acetaminophen ([place]) 5-325 MG tablet Take 1 tablet by [...] mouth Daily 100 tablet 3 nystatin (Mycostatin) 830634 UNIT/GM powder APPLY TO THE AFFECTED AREA(S) [...] Diagnosis Date Acute respiratory failure with hypoxia ([facility]) 11/17/2023 Acute respiratory insufficiency 12/15/2018 d/t Pulmonary Emboli Allergic rhinitis due to other allergen Autoimmune disorder ([facility]) Bilateral pulmonary embolism ([facility]) 2019 Acute Hypoxic Resp. 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 Cervical radiculopathy at C8 05/2017 CTS (carpal tunnel syndrome) 05/2017 Bilateral Essential hypertension, benign ([facility]) Facial droop History of being hospitalized 06/19/2024 Myasthenia Gravis Exacerbation, Weakness, Dyspnea History of being hospitalized 07/09/2024 Generalized Weakness, MATT History of echocardiogram 12/15/2018 EF 60-65%, LVH Hypertension ([facility]) Impaired glucose tolerance test Oral Lumbosacral spondylosis without myelopathy LVH (left ventricular hypertrophy) 12/15/2018 ECHO EF 60-65% Macular edema 2009 /pucker Muscle cramp Myasthenia gravis (CMS/HCC) 12/27/2017 / dyspnea Myasthenic crisis ([facility]) 05/10/2023 Obesity Obstructive sleep apnea (adult) (pediatric) Pulmonary emboli ([facility]) 11/17/2023 Pulmonary embolism ([facility]) 11/2018 Pure hypercholesterolemia ([facility]) Shortness of breath Superficial thrombophlebitis 12/16/2018 Rt Thigh Tremor Troponin I above reference range 11/17/2023 Urothelial carcinoma ([facility]) 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 [...] lab Stage 3a chronic kidney disease (HCC) ([facility]) - Basic metabolic panel; Future Await lab Lumbosacral spondylosis without myelopathy - HYDROcodone-acetaminophen ([place]) 5-325 MG tablet; Take 1 tablet by [...] No follow-ups on file. documented in this encounterGolden Valley Memorial HospitalToxxgbdgbi65-43-8665 Evaluation note* Diagnosis Localized edema- Primary Edema Stage 3a chronic kidney disease (HCC) (CMS/HCC) Lumbosacral spondylosis without myelopathy Acute non-recurrent sinusitis of other sinus documented in this encounter [facility] HospitalOqczszvqmy46-81-9926 Radiology Diagnostic study [facility] [address] [place] [address] CT Scan Report Signed Patient: Taurus Garcia MR#: [id number] : 1945 Acct:[id number] Age/Sex: 78 / M ADM Date: 4 Loc: ER Room: Type: [facility] ER Attending Dr: Copies to: Juli Thomas APRN~ Ordering Provider: Juli Thomas APRN Date of Service: 07/09/24 CT/CT angio head: vision changes ([id number]) CT/CT angio neck: vision changes CTA OF THE HEAD AND NECK WITH CONTRAST COMPARISON: None CLINICAL DATA: Blurred vision, increased weakness and pain all over. Spiral images were obtained through the head and neck following 90 mL Isovue- 370. Sagittal and coronal MIP as well as 3-D volume rendered reconstructions ofthe carotid arteries and [place] were reviewed. Stenosis is evaluated [...] Aide Moe M.D.07/09/2024 4:50 PM Dictation Location: [place] [address] Transcribed By: [facility] 07/09/241649 Dictated By: Aied Moe MD 07/09/24 1636 Signed By: 07/09/247 [facility] Work Phone: 1(409) 435-813111-19-2024 [facility] [place] [address] [place] [address] CT Scan Report Signed Patient: Taurus Garcia MR#: [id number] : 1945 Acct:[id number] Age/Sex: 78 / M ADM Date: 4 Loc: ER Room: Type: [facility] ER Attending Dr: Copies to: Juli [...] Aide Moe M.D.07/09/2024 4:30 PM Dictation Location: [place] [address] Transcribed By: [facility] 07/09/24 1630 Dictated By: Aide Moe MD 07/09/24 162 Signed By: 07/09/24 1630 [facility] Work Phone: 1(524) 984-221811-14-2024 Discharge summary Author Silvestre Grover [facility] Note Date/Time July 04, 2024 7:50am [facility] [address] [place] [address] Discharge Summary Signed Patient: Taurus Garcia MR#: [id number] : 1945 Acct:[id number] Age/Sex: 78 / M Adm Date: 4 Loc: Room: [address] [place] [address]: Silvestre Grover MD Copies to: [...] weights, etc.). [facility] [employer] (or enter a different Home Health agency [...] Preparation H(pe,cb) 0.25-88.44 % Suppository 1 supp [place] BID PRN (Reason: hemorrhoids) Qty: 0 0RF [...] normal Documented By: Silvestre Grover MD 07/04/24 0793 Signed By: <Electronically signed by Silvestre Grover MD> 07/04/24 0756 [facility] Work Phone: 1(344) 136-616611-14-[address] [address] Discharge Summary Signed Patient: Taurus Garcia MR#: [id number] : 1945 Acct:[id number] Age/Sex: 78 / M Adm Date: 4 Loc: Room: 1L0777-[address]: Silvestre Grover MD Copies to: [...] weights, etc.). Your Home Health agency is [facility] (or enter a different Home Health agency [...] Preparation H(pe,cb) 0.25-88.44 % Suppository 1 supp [place] BID PRN (Reason: hemorrhoids) Qty: 0 0RF [...] 0 0RF Follow Up: [facility] [Outside] Komal Schaffer II, MD [Primary Care [...] MD 07/04/24 0745 Signed By: 07/04/24 0750 [facility]11-13-2024 Progress note Author Silvestre Grover [facility] Note Date/Time July 03, 2024 1:55pm [facility] [address] [place] [address] Physiatry(Rehab) Progress Note Signed Patient: Taurus Garcia MR#: [id number] : 1945 Acct:[id number] Age/Sex: 78 / M Adm Date: 4 Loc: Room: [address] [place] [address] Type: ADM IN Attending Dr: Silvestre Grover [...] mg 06/22/24 14:58 Bisacodyl 10 Mg Supp.Rect [place] 06/22/25 14:57 DAILY PRN Constipation Diclofenac Sodium 2 gm 06/27/24 14:00 07/03/24 08:37 Diclofenac Sodium 1% Gel 100 Gm Tube TOPICAL 06/27/25 13:59 2 gm TID DORI Administration Docusate Sodium 100 mg 06/22/24 14:58 Docusate 100 Mg Capsule PO 06/22/25 14:57 BID PRN Constipation Docusate Sodium 283 mg 06/22/24 14:58 Docusate Enema 283 Mg/5 Ml Enema [place] 06/22/25 14:57 DAILY PRN Constipation Fish Oil 1,000 mg 06/22/24 21:00 07/03/24 08:36 [place]-3/Fish Oil 1,000 Mg Capsule PO 06/22/25 20:59 [...] Multi-Ingredient Cream 1 applic 07/02/24 09:49 Lanolin Alcohol/Mo/W.Pet/[place] (Minerin) 454 Gm Jar TOPICAL 07/02/25 20:59 [...] 20:59 40 mg BID DORI Administration Phenyleph/Shark Oil/[place] Butter 1 supp 06/22/24 14:57 Phenylephrine/[place] Butter 6.25 Mg/2211 Mg 1 Supp [place] 06/22/25 14:56 BID PRN hemorrhoids Potassium Chloride [...] 08:59 15 mg DAILY DORI Administration Pyridostigmine [place] 60 mg 06/22/24 18:00 07/03/24 08:37 Pyridostigmine [place] 60 Mg Tablet PO 06/22/25 17:59 60 [...] equipment to enhance the patient's a functional denominational Ensure adequate nutrition and hydration Sleep Discharge planning. Patient was personally seen by me, Dr. Grover, on the day of encounter, reviewed the history and the relevant portions of the chart, including current orders, allied health and java developer consultant notes, labs/imaging and performed garcia elements of exam and I formulated the plan of care and facilitated the medical decision making. I completed a substantive portion of this encounter, the medical decision makingportion of this note in its entirety, including Allied health note review, nursing note review, java developer consultant note review, discussion with nursing and case management, and more than 50% of my time was spent on counseling and coordination of care, time spent 25 minutes Documented By: Silvestre Grover MD 07/03/247 Signed By: <Electronically signed by Silvestre Grover MD> 07/03/24 8576 [facility] Work Phone: 1(101) 603-502611-13-2024 [place] [address] Physiatry(Rehab) Progress Note Signed Patient: Taurus Garcia MR#: [id number] : 1945 Acct:[id number] Age/Sex: 78 / M Adm Date: 4 Loc: Room: [address] [place] [address] Type: ADM IN Attending Dr: Silvestre Grover [...] mg 06/22/24 14:58 Bisacodyl 10 Mg Supp.Rect [place] 06/22/25 14:57 DAILY PRN Constipation Diclofenac Sodium 2 gm 06/27/24 14:00 07/03/24 08:37 Diclofenac Sodium 1% Gel 100 Gm Tube TOPICAL 06/27/25 13:59 2 gm TID DORI Administration Docusate Sodium 100 mg 06/22/24 14:58 Docusate 100 Mg Capsule PO 06/22/25 14:57 BID PRN Constipation Docusate Sodium 283 mg 06/22/24 14:58 Docusate Enema 283 Mg/5 Ml Enema [place] 06/22/25 14:57 DAILY PRN Constipation Fish Oil 1,000 mg 06/22/24 21:00 07/03/24 08:36 [place]-3/Fish Oil 1,000 Mg Capsule PO 06/22/25 20:59 [...] Multi-Ingredient Cream 1 applic 07/02/24 09:49 Lanolin Alcohol/Mo/W.Pet/[place] (Minerin) 454 Gm Jar TOPICAL 07/02/25 20:59 [...] 20:59 40 mg BID DORI Administration Phenyleph/Shark Oil/[place] Butter 1 supp 06/22/24 14:57 Phenylephrine/[place] Butter 6.25 Mg/2211 Mg 1 Supp [place] 06/22/25 14:56 BID PRN hemorrhoids Potassium Chloride 10 meq 06/26/24 09:00 07/03/24 08:37 Potassium Chloride Er 10 Meq Capsule.Er PO 06/26/25 08:59 10 meq DAILY DORI Administration Potassium Chloride 20 meq 07/03/24 13:54 Potassium Chloride Er 20 Meq Tab.Er.Prt PO 07/03/24 13:55 ONCE ONE Prednisone 15 mg 06/24/24 09:00 07/03/24 08:37 Prednisone 5 Mg Tablet PO 06/24/25 08:59 15 mg DAILY ODRI Administration Pyridostigmine [place] 60 mg 06/22/24 18:00 07/03/24 08:37 Pyridostigmine [place] 60 Mg Tablet PO 06/22/25 17:59 60 [...] equipment to enhance the patient's a functional denominational Ensure adequate nutrition and hydration Sleep Discharge planning. Patient was personally seen by me, Dr. Grover, on the day of encounter, reviewed the history and therelevant portions of the chart, including current orders, allied health and java developer consultant notes, labs/imaging and performed garcia elements of exam and I formulated the plan of care and facilitated the medical decision making. I completed a substantive portion of this encounter, the medical decision makingportion of this note in its entirety, including Allied health note review, nursing note review, java developer consultant note review,discussion with nursing and case management, and more than 50% of my time was spent on counseling and coordination of care, time spent 25 minutes Documented By: Silvestre Grover MD 07/03/24 1354 Signed By: 07/03/24 1355 [facility]11-11-2024 Progress note Author Silvestre Grover [facility] Note Date/Time July 01, 2024 1:54pm [facility] [address] [place] [address] Physiatry(Rehab) Progress Note Signed Patient: Taurus Garcia MR#: [id number] : 1945 Acct:[id number] Age/Sex: 78 / M Adm Date: 4 Loc: Room: 1K9142-4 Type: ADM IN Attending Dr: Silvestre Grover [...] mg 06/22/24 14:58 Bisacodyl 10 Mg Supp.Rect WY 06/22/25 14:57 DAILY PRN Constipation Diclofenac Sodium 2 gm 06/27/24 14:00 07/01/24 08:00 Diclofenac Sodium 1% Gel 100 Gm Tube TOPICAL 06/27/25 13:59 2 gm TID DORI Administration Docusate Sodium 100 mg 06/22/24 14:58 Docusate 100 Mg Capsule PO 06/22/25 14:57 BID PRN Constipation Docusate Sodium 283 mg 06/22/24 14:58 Docusate Enema 283 Mg/5 Ml Enema W[place] 06/22/25 14:57 DAILY PRN Constipation Fish Oil 1,000 mg 06/22/24 21:00 07/01/24 07:59 [place]-3/Fish Oil 1,000 Mg Capsule PO 06/22/25 20:59 [...] 20:59 40 mg BID DORI Administration Phenyleph/Shark Oil/[place] Butter 1 supp 06/22/24 14:57 Phenylephrine/[place] Butter 6.25 Mg/2211 Mg 1 Supp [place] 06/22/25 14:56 BID PRN hemorrhoids Potassium Chloride [...] 08:59 15 mg DAILY DORI Administration Pyridostigmine [place] 60 mg 06/22/24 18:00 07/01/24 07:59 Pyridostigmine [place] 60 Mg Tablet PO 06/22/25 17:59 60 [...] equipment to enhance the patient's a functional denominational Ensure adequate nutrition and hydration Sleep Discharge planning. Patient was personally seen by me, Dr. Grover, on the day of encounter, reviewed the history and the relevant portions of the chart, including current orders, allied health and java developer consultant notes, labs/imaging and performed garcia elements of exam and I formulated the plan of care and facilitated the medical decision making. I completed a substantive portion of this encounter, the medical decision makingportion of this note in its entirety, including Allied health note review, nursing note review, java developer consultant note review, discussion with nursing and case management, and more than 50% of my time was spent on counseling and coordination of care, time spent 25 minutes Documented By: Silvestre Grover MD 07/01/24 1353 Signed By: <Electronically signed by Silvestre Grover MD> 07/01/24 1354 [facility] Work Phone: 1(713) 384-959411-11-2024 [place] [address] Physiatry(Rehab) Progress Note Signed Patient: Taurus Garcia MR#: [id number] : 1945 Acct:[id number] Age/Sex: 78 / M Adm Date: 4 Loc: Room: 4X4341-0 Type: ADM IN Attending Dr: Silvestre Grover [...] mg 06/22/24 14:58 Bisacodyl 10 Mg Supp.Rect [place] 06/22/25 14:57 DAILY PRN Constipation Diclofenac Sodium 2 gm 06/27/24 14:00 07/01/24 08:00 Diclofenac Sodium 1% Gel 100 Gm Tube TOPICAL 06/27/25 13:59 2 gm TID DORI Administration Docusate Sodium 100 mg 06/22/24 14:58 Docusate 100 Mg Capsule PO 06/22/25 14:57 BID PRN Constipation Docusate Sodium 283 mg 06/22/24 14:58 Docusate Enema 283 Mg/5 Ml Enema W[place] 06/22/25 14:57 DAILY PRN Constipation Fish Oil 1,000 mg 06/22/24 21:00 07/01/24 07:59 [place]-3/Fish Oil 1,000 Mg Capsule PO 06/22/25 20:59 [...] 20:59 40 mg BID DORI Administration Phenyleph/Shark Oil/[place] Butter 1 supp 06/22/24 14:57 Phenylephrine/[place] Butter 6.25 Mg/2211 Mg 1 Supp [place] 06/22/25 14:56 BID PRN hemorrhoids Potassium Chloride [...] 08:59 15 mg DAILY DORI Administration Pyridostigmine [place] 60 mg 06/22/24 18:00 07/01/24 07:59 Pyridostigmine [place] 60 Mg Tablet PO 06/22/25 17:59 60 [...] equipment to enhance the patient's a functional denominational Ensure adequate nutrition and hydration Sleep Discharge planning. Patient was personally seen by me, Dr. Grover, on the day of encounter, reviewed the history and therelevant portions of the chart, including current orders, allied health and java developer consultant notes, labs/imaging and performed garcia elements of exam and I formulated the plan of care and facilitated the medical decision making. I completed a substantive portion of this encounter, the medical decision makingportion of this note in its entirety, including Allied health note review, nursing note review, java developer consultant note review,discussion with nursing and case management, and more than 50% of my time was spent on counseling and coordination of care, time spent 25 minutes Documented By: Silvestre Grover MD 07/01/24 1353 Signed By: 07/01/24 1354 [facility]11-10-2024 Progress note Author Fidel Bennett [facility] Note Date/Time June 30, 2024 9:22pm [facility] [address] [place] [address] Physiatry(Rehab) Progress Note Signed Patient: Taurus Garcia MR#: [id number] : 1945 Acct:[id number] Age/Sex: 78 / M Adm Date: 4 Loc: Room: 2A4023-1 Type: ADM IN Attending Dr: Silvestre Grover [...] mg 06/22/24 14:58 Bisacodyl 10 Mg Supp.Rect [place] 06/22/25 14:57 DAILY PRN Constipation Diclofenac Sodium 2 gm 06/27/24 14:00 06/30/24 14:34 Diclofenac Sodium 1% Gel 100 Gm Tube TOPICAL 06/27/25 13:59 Not Given TID DORI Docusate Sodium 100 mg 06/22/24 14:58 Docusate 100 Mg Capsule PO 06/22/25 14:57 BID PRN Constipation Docusate Sodium 283 mg 06/22/24 14:58 Docusate Enema 283 Mg/5 Ml Enema [place] 06/22/25 14:57 DAILY PRN Constipation Fish Oil 1,000 mg 06/22/24 21:00 06/30/24 08:50 [place]-3/Fish Oil 1,000 Mg Capsule PO 06/22/25 20:59 [...] 20:59 40 mg BID DORI Administration Phenyleph/Shark Oil/[place] Butter 1 supp 06/22/24 14:57 Phenylephrine/[place] Butter 6.25 Mg/2211 Mg 1 Supp [place] 06/22/25 14:56 BID PRN hemorrhoids Potassium Chloride [...] 08:59 15 mg DAILY DORI Administration Pyridostigmine [place] 60 mg 06/22/24 18:00 06/30/24 17:46 Pyridostigmine [place] 60 Mg Tablet PO 06/22/25 17:59 60 [...] equipment to enhance the patient's a functional denominational Ensure adequate nutrition and hydration Sleep Discharge planning. Patient was personally seen by me, Dr. Bennett, on the day of encounter, reviewed the history and the relevant portions of the chart, including current orders, allied health and java developer consultant notes, labs/imaging and performed garcia elements of exam and I formulated the plan of care and facilitated the medical decision making. I completed a substantive portion of this encounter, the medical decision makingportion of this note in its entirety, including Allied health note review, nursing note review, java developer consultant note review, discussion with nursing and case management, and more than 50% of my time was spent on counseling and coordination of care, time spent 25 minutes Documented By: Fidel Bennett MD 2118 Signed By: <Electronically signed by Fidel Bennett MD> 06/30/242121 [facility] Work Phone: 1(467) 205-396611-10-[address] [address] Physiatry(Rehab) Progress Note Signed Patient: Taurus Garcia MR#: [id number] : 1945 Acct:[id number] Age/Sex: 78 / M Adm Date: 4 Loc: Room: [address] [place] [address] Type: ADM IN Attending Dr: Silvestre Grover [...] mg 06/22/24 14:58 Bisacodyl 10 Mg Supp.Rect [place] 06/22/25 14:57 DAILY PRN Constipation Diclofenac Sodium 2 gm 06/27/24 14:00 06/30/24 14:34 Diclofenac Sodium 1% Gel 100 Gm Tube TOPICAL 06/27/25 13:59 Not Given TID DORI Docusate Sodium 100 mg 06/22/24 14:58 Docusate 100 Mg Capsule PO 06/22/25 14:57 BID PRN Constipation Docusate Sodium 283 mg 06/22/24 14:58 Docusate Enema 283 Mg/5 Ml Enema [place] 06/22/25 14:57 DAILY PRN Constipation Fish Oil 1,000 mg 06/22/24 21:00 06/30/24 08:50 [place]-3/Fish Oil 1,000 Mg Capsule PO 06/22/25 20:59 [...] 20:59 40 mg BID DORI Administration Phenyleph/Shark Oil/[place] Butter 1 supp 06/22/24 14:57 Phenylephrine/[place] Butter 6.25 Mg/2211 Mg 1 Supp [place] 06/22/25 14:56 BID PRN hemorrhoids Potassium Chloride [...] 08:59 15 mg DAILY DORI Administration Pyridostigmine [place] 60 mg 06/22/24 18:00 06/30/24 17:46 Pyridostigmine [place] 60 Mg Tablet PO 06/22/25 17:59 60 [...] equipment to enhance the patient's a functional denominational Ensure adequate nutrition and hydration Sleep Discharge planning. Patient was personally seen by me, Dr. Bennett, on the day of encounter, reviewed the history and the relevant portions of the chart, including current orders, allied health and java developer consultant notes, labs/imaging and performed garcia elements of exam and I formulated the plan of care and facilitated the medical decision making. I completed a substantive portion of this encounter, the medical decision makingportion of this note in its entirety, including Allied health note review, nursing note review, java developer consultant note review,discussion with nursing and case management, and more than 50% of my time was spent on counseling and coordination of care, time spent 25 minutes Documented By: Fidel Bennett MD 2118 Signed By: 06/30/242121 [facility]11-10-2024 Progress note Author Susanne Sharma [facility] Note Date/Time June 30, 2024 4:13pm [facility] [address] [place] [address] Hospitalist Progress Note Signed Patient: Taurus Garcia MR#: [id number] : 1945 Acct:[id number] Age/Sex: 78 / M Adm Date: 4 Loc: Room: [address] [place] [address] Type: ADM IN Attending Dr: Silvestre Grover [...] mg 06/22/24 14:58 Bisacodyl 10 Mg Supp.Rect [place] 06/22/25 14:57 DAILY PRN Constipation Diclofenac Sodium 2 gm 06/27/24 14:00 06/30/24 08:53 Diclofenac Sodium 1% Gel 100 Gm Tube TOPICAL 06/27/25 13:59 2 gm TID DORI Administration Docusate Sodium 100 mg 06/22/24 14:58 Docusate 100 Mg Capsule PO 06/22/25 14:57 BID PRN Constipation Docusate Sodium 283 mg 06/22/24 14:58 Docusate Enema 283 Mg/5 Ml Enema [place] 06/22/25 14:57 DAILY PRN Constipation Fish Oil 1,000 mg 06/22/24 21:00 06/30/24 08:50 [place]-3/Fish Oil 1,000 Mg Capsule PO 06/22/25 20:59 [...] 20:59 40 mg BID DORI Administration Phenyleph/Shark Oil/[place] Butter 1 supp 06/22/24 14:57 Phenylephrine/[place] Butter 6.25 Mg/2211 Mg 1 Supp [place] 06/22/25 14:56 BID PRN hemorrhoids Potassium Chloride [...] 08:59 15 mg DAILY DORI Administration Pyridostigmine [place] 60 mg 06/22/24 18:00 06/30/24 08:50 Pyridostigmine [place] 60 Mg Tablet PO 06/22/25 17:59 60 [...] <Electronically signed by Kevin Leo MD> 06/30/24 1610 [facility] Work Phone: 1(256) 193-435311-10-2024 [place] [address] Hospitalist Progress Note Signed Patient: Taurus Garcia MR#: [id number] : 1945 Acct:[id number] Age/Sex: 78 / M Adm Date: 4 Loc: 5T Room: 4C0740-3 Type: ADM IN Attending Dr: Silvestre Grover [...] mg 06/22/24 14:58 Bisacodyl 10 Mg Supp.Rect [place] 06/22/25 14:57 DAILY PRN Constipation Diclofenac Sodium 2 gm 06/27/24 14:00 06/30/24 08:53 Diclofenac Sodium 1% Gel 100 Gm Tube TOPICAL 06/27/25 13:59 2 gm TID DORI Administration Docusate Sodium 100 mg 06/22/24 14:58 Docusate 100 Mg Capsule PO 06/22/25 14:57 BID PRN Constipation Docusate Sodium 283 mg 06/22/24 14:58 Docusate Enema 283 Mg/5 Ml Enema [place] 06/22/25 14:57 DAILY PRN Constipation Fish Oil 1,000 mg 06/22/24 21:00 06/30/24 08:50 [place]-3/Fish Oil 1,000 Mg Capsule PO 06/22/25 20:59 [...] 20:59 40 mg BID DORI Administration Phenyleph/Shark Oil/[place] Butter 1 supp 06/22/24 14:57 Phenylephrine/[place] Butter 6.25 Mg/2211 Mg 1 Supp [place] 06/22/25 14:56 BID PRN hemorrhoids Potassium Chloride [...] 08:59 15 mg DAILY DORI Administration Pyridostigmine [place] 60 mg 06/22/24 18:00 06/30/24 08:50 Pyridostigmine [place] 60 Mg Tablet PO 06/22/25 17:59 60 [...] 1145 Signed By: 06/30/24 1159 06/30/24 1613 [facility]11-08-2024 Progress note Author Silvestre Grover [facility] Note Date/Time June 28, 2024 2 :35pm [facility] [address] [place] [address] Physiatry(Rehab) Progress Note Signed Patient: Taurus Garcia MR#: [id number] : 1945 Acct:[id number] Age/Sex: 78 / M Adm Date: 4 Loc: 5T Room: [address] [place] [address] Type: ADM IN Attending Dr: Silvestre Grover [...] mg 06/22/24 14:58 Bisacodyl 10 Mg Supp.Rect [place] 06/22/25 14:57 DAILY PRN Constipation Diclofenac Sodium 2 gm 06/27/24 14:00 06/28/24 14:01 Diclofenac Sodium 1% Gel 100 Gm Tube TOPICAL 06/27/25 13:59 2 gm TID DORI Administration Docusate Sodium 100 mg 06/22/24 14:58 Docusate 100 Mg Capsule PO 06/22/25 14:57 BID PRN Constipation Docusate Sodium 283 mg 06/22/24 14:58 Docusate Enema 283 Mg/5 Ml Enema [place] 06/22/25 14:57 DAILY PRN Constipation Fish Oil 1,000 mg 06/22/24 21:00 06/28/24 09:07 [place]-3/Fish Oil 1,000 Mg Capsule PO 06/22/25 20:59 [...] 06/22/24 21:00 06/28/24 09:07 Pantoprazole 40 Mg Tablet. PO 06/22/25 20:59 40 mg BID DORI Administration Phenyleph/Shark Oil/[place] Butter 1 supp 06/22/24 14:57 Phenylephrine/[place] Butter 6.25 Mg/2211 Mg 1 Supp [place] 06/22/25 14:56 BID PRN hemorrhoids Potassium Chloride [...] 08:59 15 mg DAILY DORI Administration Pyridostigmine [place] 60 mg 06/22/24 18:00 06/28/24 14:00 Pyridostigmine [place] 60 Mg Tablet PO 06/22/25 17:59 60 [...] equipment to enhance the patient's a functional denominational Ensure adequate nutrition and hydration Sleep Discharge planning. Patient was personally seen by me, Dr. Grover, on the day of encounter, reviewed the history and the relevant portions of the chart, including current orders, allied health and java developer consultant notes, labs/imaging and performed garcia elements of exam and I formulated the plan of care and facilitated the medical decision making. I completed a substantive portion of this encounter, the medical decision makingportion of this note in its entirety, including Allied health note review, nursing note review, java developer consultant note review, discussion with nursing and case management, and more than 50% of my time was spent on counseling and coordination of care, time spent 35 minutes Documented By: Silvestre Grover MD 06/28/24 1433 Signed By: <Electronically signed by Silvestre Grover MD> 06/28/24 1435 [facility] Work Phone: 1(442) 616-909211-08-2024 [place] [address] Physiatry(Rehab) Progress Note Signed Patient: Taurus Garcia MR#: [id number] : 1945 Acct:[id number] Age/Sex: 78 / M Adm Date: 4 Loc: Room: [address] [place] [address] Type: ADM IN Attending Dr: Silvestre Grover [...] mg 06/22/24 14:58 Bisacodyl 10 Mg Supp.Rect [place] 06/22/25 14:57 DAILY PRN Constipation Diclofenac Sodium 2 gm 06/27/24 14:00 06/28/24 14:01 Diclofenac Sodium 1% Gel 100 Gm Tube TOPICAL 06/27/25 13:59 2 gm TID DORI Administration Docusate Sodium 100 mg 06/22/24 14:58 Docusate 100 Mg Capsule PO 06/22/25 14:57 BID PRN Constipation Docusate Sodium 283 mg 06/22/24 14:58 Docusate Enema 283 Mg/5 Ml Enema [place] 06/22/25 14:57 DAILY PRN Constipation Fish Oil 1,000 mg 06/22/24 21:00 06/28/24 09:07 [place]-3/Fish Oil 1,000 Mg Capsule PO 06/22/25 20:59 [...] 20:59 40 mg BID DORI Administration Phenyleph/Shark Oil/[place] Butter 1 supp 06/22/24 14:57 Phenylephrine/[place] Butter 6.25 Mg/2211 Mg 1 Supp [place] 06/22/25 14:56 BID PRN hemorrhoids Potassium Chloride [...] 08:59 15 mg DAILY DORI Administration Pyridostigmine [place] 60 mg 06/22/24 18:00 06/28/24 14:00 Pyridostigmine [place] 60 Mg Tablet PO 06/22/25 17:59 60 [...] equipment to enhance the patient's a functional denominational Ensure adequate nutrition and hydration Sleep Discharge planning. Patient was personally seen by me, Dr. Grover, on the day of encounter, reviewed the history and therelevant portions of the chart, including current orders, allied health and java developer consultant notes, labs/imaging and performed garcia elements of exam and I formulated the plan of care and facilitated the medical decision making. I completed a substantive portion of this encounter, the medical decision makingportion of this note in its entirety, including Allied health note review, nursing note review, java developer consultant note review,discussion with nursing and case management, and more than 50% of my time was spent on counseling and coordination of care, time spent 35 minutes Documented By: Silvestre Grover MD 06/28/24 1433 Signed By: 06/28/24 1435 [facility]11-07-2024 Progress note Author Silvestre Grover [facility] Note Date/Time June 27, 2024 1 1:35am [facility] [address] [place] [address] Physiatry(Rehab) Progress Note Signed Patient: Taurus Garcia MR#: [id number] : 1945 Acct:[id number] Age/Sex: 78 / M Adm Date: 4 Loc: Room: [address] [place] [address] Type: ADM IN Attending Dr: Silvestre Grover [...] mg 06/22/24 14:58 Bisacodyl 10 Mg Supp.Rect [place] 06/22/25 14:57 DAILY PRN Constipation Diclofenac Sodium 2 gm 06/27/24 14:00 Diclofenac Sodium 1% Gel 100 Gm Tube TOPICAL 06/27/25 13:59 TID DORI Docusate Sodium 100 mg 06/22/24 14:58 Docusate 100 Mg Capsule PO 06/22/25 14:57 BID PRN Constipation Docusate Sodium 283 mg 06/22/24 14:58 Docusate Enema 283 Mg/5 Ml Enema [place] 06/22/25 14:57 DAILY PRN Constipation Fish Oil 1,000 mg 06/22/24 21:00 06/27/24 09:00 [place]-3/Fish Oil 1,000 Mg Capsule PO 06/22/25 20:59 [...] 20:59 40 mg BID DORI Administration Phenyleph/Shark Oil/[place] Butter 1 supp 06/22/24 14:57 Phenylephrine/[place] Butter 6.25 Mg/2211 Mg 1 Supp [place] 06/22/25 14:56 BID PRN hemorrhoids Potassium Chloride [...] 08:59 15 mg DAILY DORI Administration Pyridostigmine [place] 60 mg 06/22/24 18:00 06/27/24 09:01 Pyridostigmine [place] 60 Mg Tablet PO 06/22/25 17:59 60 [...] equipment to enhance the patient's a functional denominational Ensure adequate nutrition and hydration Sleep Discharge planning. Patient was personally seen by me, Dr. Grover, on the day of encounter, reviewed the history and the relevant portions of the chart, including current orders, allied health and java developer consultant notes, labs/imaging and performed garcia elements of exam and I formulated the plan of care and facilitated the medical decision making. I completed a substantive portion of this encounter, the medical decision makingportion of this note in its entirety, including Allied health note review, nursing note review, java developer consultant note review, discussion with nursing and case management, and more than 50% of my time was spent on counseling and coordination of care, time spent 35 minutes Documented By: Silvestre Grover MD 06/27/241133 Signed By: <Electronically signed by Silvestre Grover MD> 06/27/24 [facility]5 [facility] Work Phone: 1(665) 487-944711-07-2024 [place] [address] Physiatry(Rehab) Progress Note Signed Patient: Taurus Garcia MR#: [id number] : 1945 Acct:[id number] Age/Sex: 78 / M Adm Date: 4 Loc: 5T Room: 7O4333-0 Type: ADM IN Attending Dr: Silvestre Grover [...] mg 06/22/24 14:58 Bisacodyl 10 Mg Supp.Rect [place] 06/22/25 14:57 DAILY PRN Constipation Diclofenac Sodium 2 gm 06/27/24 14:00 Diclofenac Sodium 1% Gel 100 Gm Tube TOPICAL 06/27/25 13:59 TID DORI Docusate Sodium 100 mg 06/22/24 14:58 Docusate 100 Mg Capsule PO 06/22/25 14:57 BID PRN Constipation Docusate Sodium 283 mg 06/22/24 14:58 Docusate Enema 283 Mg/5 Ml Enema [place] 06/22/25 14:57 DAILY PRN Constipation Fish Oil 1,000 mg 06/22/24 21:00 06/27/24 09:00 [place]-3/Fish Oil 1,000 Mg Capsule PO 06/22/25 20:59 [...] 20:59 40 mg BID DORI Administration Phenyleph/Shark Oil/[place] Butter 1 supp 06/22/24 14:57 Phenylephrine/[place] Butter 6.25 Mg/2211 Mg 1 Supp [place] 06/22/25 14:56 BID PRN hemorrhoids Potassium Chloride [...] 08:59 15 mg DAILY DORI Administration Pyridostigmine [place] 60 mg 06/22/24 18:00 06/27/24 09:01 Pyridostigmine [place] 60 Mg Tablet PO 06/22/25 17:59 60 [...] equipment to enhance the patient's a functional denominational Ensure adequate nutrition and hydration Sleep Discharge planning. Patient was personally seen by me, Dr. Grover, on the day of encounter, reviewed the history and therelevant portions of the chart, including current orders, allied health and java developer consultant notes, labs/imaging and performed garcia elements of exam and I formulated the plan of care and facilitated the medical decision making. I completed a substantive portion of this encounter, the medical decision makingportion of this note in its entirety, including Allied health note review, nursing note review, java developer consultant note review,discussion with nursing and case management, and more than 50% of my time was spent on counseling and coordination of care, time spent 35 minutes Documented By: Silvestre Grover MD 06/27/241133 Signed By: 06/27/24 1135 [facility]11-06-2024 Progress note Author Silvestre Grover [facility] Note Date/Time June 26, 2024 1 :34pm [facility] [address] [place] [address] Physiatry(Rehab) Progress Note Signed Patient: Taurus Garcia MR#: [id number] : 1945 Acct:[id number] Age/Sex: 78 / M Adm Date: 4 Loc: Room: [address] [place] [address] Type: ADM IN Attending Dr: Silvestre Grover [...] mg 06/22/24 14:58 Bisacodyl 10 Mg Supp.Rect [place] 06/22/25 14:57 DAILY PRN Constipation Docusate Sodium 100 mg 06/22/24 14:58 Docusate 100 Mg Capsule PO 06/22/25 14:57 BID PRN Constipation Docusate Sodium 283 mg 06/22/24 14:58 Docusate Enema 283 Mg/5 Ml Enema [place] 06/22/25 14:57 DAILY PRN Constipation Fish Oil 1,000 mg 06/22/24 21:00 06/26/24 08:26 [place]-3/Fish Oil 1,000 Mg Capsule PO 06/22/25 20:59 [...] 20:59 40 mg BID DORI Administration Phenyleph/Shark Oil/[place] Butter 1 supp 06/22/24 14:57 Phenylephrine/[place] Butter 6.25 Mg/2211 Mg 1 Supp [place] 06/22/25 14:56 BID PRN hemorrhoids Potassium Chloride [...] 08:59 15 mg DAILY DORI Administration Pyridostigmine [place] 60 mg 06/22/24 18:00 06/26/24 08:26 Pyridostigmine [place] 60 Mg Tablet PO 06/22/25 17:59 60 [...] equipment to enhance the patient's a functional denominational Ensure adequate nutrition and hydration Sleep Discharge planning. Patient was personally seen by me, Dr. Grover, on the day of encounter, reviewed the history and the relevant portions of the chart, including current orders, allied health and java developer consultant notes, labs/imaging and performed garcia elements of exam and I formulated the plan of care and facilitated the medical decision making. I completed a substantive portion of this encounter, the medical decision makingportion of this note in its entirety, including Allied health note review, nursing note review, java developer consultant note review, discussion with nursing and case management, and more than 50% of my time was spent on counseling and coordination of care, time spent 37 minutes Documented By: Silvestre Grover MD 06/26/24 1331 Signed By: <Electronically signed by Silvestre Grover MD> 06/26/24 133 [facility] Work Phone: 1(279) 744-905611-06-2024 [place] [address] Physiatry(Rehab) Progress Note Signed Patient: Taurus Garcia MR#: [id number] : 1945 Acct:[id number] Age/Sex: 78 / M Adm Date: 4 Loc: Room: [address] [place] [address] Type: ADM IN Attending Dr: Silvestre Grover [...] mg 06/22/24 14:58 Bisacodyl 10 Mg Supp.Rect [place] 06/22/25 14:57 DAILY PRN Constipation Docusate Sodium 100 mg 06/22/24 14:58 Docusate 100 Mg Capsule PO 06/22/25 14:57 BID PRN Constipation Docusate Sodium 283 mg 06/22/24 14:58 Docusate Enema 283 Mg/5 Ml Enema [place] 06/22/25 14:57 DAILY PRN Constipation Fish Oil 1,000 mg 06/22/24 21:00 06/26/24 08:26 [place]-3/Fish Oil 1,000 Mg Capsule PO 06/22/25 20:59 [...] 20:59 40 mg BID DORI Administration Phenyleph/Shark Oil/[place] Butter 1 supp 06/22/24 14:57 Phenylephrine/[place] Butter 6.25 Mg/2211 Mg 1 Supp [place] 06/22/25 14:56 BID PRN hemorrhoids Potassium Chloride [...] 08:59 15 mg DAILY DORI Administration Pyridostigmine [place] 60 mg 06/22/24 18:00 06/26/24 08:26 Pyridostigmine [place] 60 Mg Tablet PO 06/22/25 17:59 60 [...] equipment to enhance the patient's a functional denominational Ensure adequate nutrition and hydration Sleep Discharge planning. Patient was personally seen by me, Dr. Grover, on the day of encounter, reviewed the history and therelevant portions of the chart, including current orders, allied health and java developer consultant notes, labs/imaging and performed garcia elements of exam and I formulated the plan of care and facilitated the medical decision making. I completed a substantive portion of this encounter, the medical decision makingportion of this note in its entirety, including Allied health note review, nursing note review, java developer consultant note review,discussion with nursing and case management, and more than 50% of my time was spent on counseling and coordination of care, time spent 37 minutes Documented By: Silvestre Grover MD 06/26/241330 Signed By: 06/26/24 133 [facility]11-05-2024 Progress note Author Silvestre Grover [facility] Note Date/Time June 25, 2024 4 :17pm [facility] [address] [place] [address] Physiatry(Rehab) Progress Note Signed Patient: Taurus Garcia MR#: [id number] : 1945 Acct:[id number] Age/Sex: 78 / M Adm Date: 4 Loc: Room: 1Y1336-6 Type: ADM IN Attending Dr: Silvestre Grover [...] mg 06/22/24 14:58 Bisacodyl 10 Mg Supp.Rect [place] 06/22/25 14:57 DAILY PRN Constipation Docusate Sodium 100 mg 06/22/24 14:58 Docusate 100 Mg Capsule PO 06/22/25 14:57 BID PRN Constipation Docusate Sodium 283 mg 06/22/24 14:58 Docusate Enema 283 Mg/5 Ml Enema [place] 06/22/25 14:57 DAILY PRN Constipation Fish Oil 1,000 mg 06/22/24 21:00 06/25/24 09:24 [place]-3/Fish Oil 1,000 Mg Capsule PO 06/22/25 20:59 [...] 20:59 40 mg BID DORI Administration Phenyleph/Shark Oil/[place] Butter 1 supp 06/22/24 14:57 Phenylephrine/[place] Butter 6.25 Mg/2211 Mg 1 Supp [place] 06/22/25 14:56 BID PRN hemorrhoids Potassium Chloride 20 meq 06/22/24 14:57 Potassium Chloride Er 20 Meq Tab.Er.Prt PO 06/22/25 14:56 DAILY PRN Hypokalemia Potassium Chloride 10 meq 06/26/24 09:00 Potassium Chloride Er 10 Meq Capsule.Er PO 06/26/25 08:59 DAILY DORI Prednisone 15 mg 06/24/24 09:00 06/25/24 09:24 Prednisone 5 Mg Tablet PO 06/24/25 08:59 15 mg DAILY DORI Administration Pyridostigmine [place] 60 mg 06/22/24 18:00 06/25/24 09:24 Pyridostigmine [place] 60 Mg Tablet PO 06/22/25 17:59 60 [...] equipment to enhance the patient's a functional denominational Ensure adequate nutrition and hydration Sleep Discharge planning. Patient was personally seen by me, Dr. Grover, on the day of encounter, reviewed the history and the relevant portions of the chart, including current orders, allied health and java developer consultant notes, labs/imaging and performed garcia elements of exam and I formulated the plan of care and facilitated the medical decision making. I completed a substantive portion of this encounter, the medical decision makingportion of this note in its entirety, including Allied health note review, nursing note review, java developer consultant note review, discussion with nursing and case management, and more than 50% of my time was spent on counseling and coordination of care, time spent 45 minutes In addition to above, patient's case reviewed at weekly team conference, discussed progress and goals of care, barriers/problems to date and discharge planning. Documented By: Silvestre Grover MD 06/25/24 1055 Signed By: <Electronically signed by Silvestre Grover MD> 06/25/24 7994 [facility] Work Phone: 1(395) 416-293711-05-2024 History and physical note Author Antonia Grier [facility] Note Date/Time June 25, 2024 3 :19pm [facility] [address] [place] [address] Physiatry (Rehab) H&P Signed Patient: Taurus Garcia MR#: [id number] : 1945 Acct:[id number] Age/Sex: 78 / M Adm Date: 4 Loc: 5T Room: 2Q5874-9 Type: ADM IN Attending Dr: Silvestre Grover [...] mg PO DAILY 12/27/17 [History Confirmed 06/19/24] hfznswom-axr-vazod acid 0.4 mg-lycopene 300 mcg-lutein 250 mcg [...] rectal suppository (Preparation H(phenyleph,cocoa buttr)) 1 supp [place] BID PRN hemorrhoids #0 ea 06/22/24 [Rx] [...] 24 hour daily monitoring and intervention from Mechanic Assistant as well as other consulting physicians including internal medicine as well as 24 hour daily supervisor finishing department nursing - for medical safe / optimal [...] equipment to enhance the patient's a functional denominational Ensure adequate nutrition and hydration Sleep Discharge planning. I spent 43 minutes for services, including ridh-ca-ysmr encounter with the patient, discussion of the case, plan of care, and exam; and kjomglw-zr-pbvw activities, such as reviewing pertinent java developer consultant documentation, recent therapy notes, laboratory and radiology studies, and discussion of case with care team including physician, nursing, foster care case manager, and therapists. More than 50 % of time was spent on patient/family counseling or coordination of care. Patient was personally seen by me, Dr. Bennett, on the day of encounter, within 24 hours of rehab admission, reviewed the history and the relevant portions of the chart, including current orders, allied health and java developer consultant notes, labs/imaging and performed garcia elements of exam and I formulated the plan of care and facilitated the medical decision making. I completed a substantive portion of this encounter, the medical decision making portion of this note in its entirety, including Allied health note review, nursing note review, java developer consultant note review, discussion with nursing and case management, and more than 50% of my time was spent on counseling and coordination of care, time spent 45 minutes Documented By: Antonia Grier APRN 06/22/24 1 500 Signed By: <Electronically signed by ZACH Grier> 06/23/24 1114 <Electronically signed by Silvestre Grover MD> 06/25/24 1519 <Electronically signed by Fidel Bennett MD> 06/24/24 1352 [facility] Work Phone: 1([phone] 344-975511-05-2024 [place] [id number] Physiatry(Rehab) Progress Note Signed Patient: Taurus Garcia MR#: [id number] : 1945 Acct:[id number] Age/Sex: 78 / M Adm Date: 4 Loc: Room: 6F0084-2 Type: ADM IN Attending Dr: Silvestre Grover [...] mg 06/22/24 14:58 Bisacodyl 10 Mg Supp.Rect WY 06/22/25 14:57 DAILY PRN Constipation Docusate Sodium 100 mg 06/22/24 14:58 Docusate 100 Mg Capsule PO 06/22/25 14:57 BID PRN Constipation Docusate Sodium 283 mg 06/22/24 14:58 Docusate Enema 283 Mg/5 Ml Enema [place] 06/22/25 14:57 DAILY PRN Constipation Fish Oil 1,000 mg 06/22/24 21:00 06/25/24 09:24 [place]-3/Fish Oil 1,000 Mg Capsule PO 06/22/25 20:59 [...] 20:59 40 mg BID DORI Administration Phenyleph/Shark Oil/[place] Butter 1 supp 06/22/24 14:57 Phenylephrine/[place] Butter 6.25 Mg/2211 Mg 1 Supp [place] 06/22/25 14:56 BID PRN hemorrhoids Potassium Chloride 20 meq 06/22/24 14:57 Potassium Chloride Er 20 Meq Tab.Er.Prt PO 06/22/25 14:56 DAILY PRN Hypokalemia Potassium Chloride 10 meq 06/26/24 09:00 Potassium Chloride Er 10 Meq Capsule.Er PO 06/26/25 08:59 DAILY DORI Prednisone 15 mg 06/24/24 09:00 06/25/24 09:24 Prednisone 5 Mg Tablet PO 06/24/25 08:59 15 mg DAILY DORI Administration Pyridostigmine [place] 60 mg 06/22/24 18:00 06/25/24 09:24 Pyridostigmine [place] 60 Mg Tablet PO 06/22/25 17:59 60 [...] equipment to enhance the patient's a functional denominational Ensure adequate nutrition and hydration Sleep Discharge planning. Patient was personally seen by me, Dr. Grover, on the day of encounter, reviewed the history and therelevant portions of the chart, including current orders, allied health and java developer consultant notes, labs/imaging and performed garcia elements of exam and I formulated the plan of care and facilitated the medical decision making. I completed a substantive portion of this encounter, the medical decision makingportion of this note in its entirety, including Allied health note review, nursing note review, java developer consultant note review,discussion with nursing and case management, and more than 50% of my time was spent on counseling and coordination of care, time spent 45 minutes In addition to above, patient's case reviewed at weekly team conference, discussed progress and goals of care, barriers/problems to date and discharge planning. Documented By: Silvestre Grover MD 06/25/24 1052 Signed By: 06/25/24 [facility]7 [facility]11-05-2024 [place] [address] Physiatry (Rehab) H&P Signed Patient: Taurus Garcia MR#: [id number] : 1945 Acct:[id number] Age/Sex: 78 / M Adm Date: 4 Loc: Room: 6V3649-6 Type: ADM IN Attending Dr: Silvestre Grover [...] days. No consideration for IVIG at this critical access hospital. Pulmonary services consulted and assisted with [...] mg PO DAILY 12/27/17 [History Confirmed 06/19/24] zsijtibe-uar-jeqzg acid 0.4 mg-lycopene 300 mcg-lutein 250 mcg [...] % rectal suppository (Preparation H(phenyleph,cocoa buttr))1 supp [place] BID PRN hemorrhoids #0 ea 06/22/24 [Rx] [...] 24 hour daily monitoring and intervention from Mechanic Assistant as well as other consulting physicians including internal medicine as well as 24 hour daily supervisor finishing department nursing - for medical safe / optimal [...] equipment to enhance the patient's a functional denominational Ensure adequate nutrition and hydration Sleep Discharge planning. I spent 43 minutes for services, including thlv-jn-awbw encounter with the patient, discussion of the case, plan of care, and exam; and uzvnjud-bn-abwy activities, such as reviewing pertinent java developer consultant documentation, recent therapy notes, laboratory and radiology studies, and discussion of case with care team including physician, nursing, foster care case manager, and therapists. More than 50 % of time was spent on patient/family counseling or coordination of care. Patient was personally seen by me, Dr. Bennett, on the day of encounter, within 24 hours of rehab admission, reviewed the history and the relevant portions of the chart, including current orders, allied health and java developer consultant notes, labs/imaging and performed garcia elements of exam and I formulatedthe plan of care and facilitated the medical decision making. I completed a substantive portion of this encounter, the medical decision making portion of this note in its entirety, including Allied health note review, nursing note review, java developer consultant note review, discussion with nursing and case management, and more than 50% of my time was spent on counseling and coordination of care, time spent 45 minutes Documented By: Antonia Grier APRN 06/22/24 1 500 Signed By: 06/23/24 1114 06/25/24 1519 06/24/24 1352 [facility]11-04-2024 Progress note Author Fidel Bennett [facility] Note Date/Time June 24, 2024 1 :59pm [facility] [address] [place] [address] Physiatry(Rehab) Progress Note Signed Patient: Taurus Garcia MR#: [id number] : 1945 Acct:[id number] Age/Sex: 78 / M Adm Date: 4 Loc: Room: 7K4361-1 Type: ADM IN Attending Dr: Silvestre Grover [...] mg 06/22/24 14:58 Bisacodyl 10 Mg Supp.Rect WY 06/22/25 14:57 DAILY PRN Constipation Docusate Sodium 100 mg 06/22/24 14:58 Docusate 100 Mg Capsule PO 06/22/25 14:57 BID PRN Constipation Docusate Sodium 283 mg 06/22/24 14:58 Docusate Enema 283 Mg/5 Ml Enema W[place] 06/22/25 14:57 DAILY PRN Constipation Fish Oil 1,000 mg 06/22/24 21:00 06/24/24 08:20 [place]-3/Fish Oil 1,000 Mg Capsule PO 06/22/25 20:59 [...] 20:59 40 mg BID DORI Administration Phenyleph/Shark Oil/[place] Butter 1 supp 06/22/24 14:57 Phenylephrine/[place] Butter 6.25 Mg/2211 Mg 1 Supp W[place] 06/22/25 14:56 BID PRN hemorrhoids Potassium Chloride 20 meq 06/22/24 14:57 Potassium Chloride Er 20 Meq Tab.Er.Prt PO 06/22/25 14:56 DAILY PRN Hypokalemia Potassium Chloride 10 meq 06/26/24 09:00 Potassium Chloride Er 10 Meq Capsule.Er PO 06/26/25 08:59 DAILY DORI Prednisone 15 mg 06/24/24 09:00 06/24/24 08:20 Prednisone 5 Mg Tablet PO 06/24/25 08:59 15 mg DAILY DORI Administration Pyridostigmine [place] 60 mg 06/22/24 18:00 06/24/24 08:20 Pyridostigmine [place] 60 Mg Tablet PO 06/22/25 17:59 60 [...] equipment to enhance the patient's a functional denominational Ensure adequate nutrition and hydration Sleep Discharge planning. Patient was personally seen by me, Dr. Bennett, on the day of encounter, reviewed the history and the relevant portions of the chart, including current orders, allied health and java developer consultant notes, labs/imaging and performed garcia elements of exam and I formulated the plan of care and facilitated the medical decision making. I completed a substantive portion of this encounter, the medical decision makingportion of this note in its entirety, including Allied health note review, nursing note review, java developer consultant note review, discussion with nursing and case management, and more than 50% of my time was spent on counseling and coordination of care, time spent 25 minutes Documented By: Fidel Bennett MD 1352 Signed By: <Electronically signed by Fidel Bennett MD> 06/24/24 1359 [facility] Work Phone: 1(797) 416-174911-04-2024 [place] [address] Physiatry(Rehab) Progress Note Signed Patient: Taurus Garcia MR#: [id number] : 1945 Acct:[id number] Age/Sex: 78 / M Adm Date: 4 Loc: Room: 1W5455-4 Type: ADM IN Attending Dr: Silvestre Grover [...] days. No consideration for IVIG at this critical access hospital. Pulmonary services consulted and assisted with [...] mg 06/22/24 14:58 Bisacodyl 10 Mg Supp.Rect WY 06/22/25 14:57 DAILY PRN Constipation Docusate Sodium 100 mg 06/22/24 14:58 Docusate 100 Mg Capsule PO 06/22/25 14:57 BID PRN Constipation Docusate Sodium 283 mg 06/22/24 14:58 Docusate Enema 283 Mg/5 Ml Enema W[place] 06/22/25 14:57 DAILY PRN Constipation Fish Oil 1,000 mg 06/22/24 21:00 06/24/24 08:20 [place]-3/Fish Oil 1,000 Mg Capsule PO 06/22/25 20:59 [...] 20:59 40 mg BID DORI Administration Phenyleph/Shark Oil/[place] Butter 1 supp 06/22/24 14:57 Phenylephrine/[place] Butter 6.25 Mg/2211 Mg 1 Supp [place] 06/22/25 14:56 BID PRN hemorrhoids Potassium Chloride 20 meq 06/22/24 14:57 Potassium Chloride Er 20 Meq Tab.Er.Prt PO 06/22/25 14:56 DAILY PRN Hypokalemia Potassium Chloride 10 meq 06/26/24 09:00 Potassium Chloride Er 10 Meq Capsule.Er PO 06/26/25 08:59 DAILY DORI Prednisone 15 mg 06/24/24 09:00 06/24/24 08:20 Prednisone 5 Mg Tablet PO 06/24/25 08:59 15 mg DAILY DORI Administration Pyridostigmine [place] 60 mg 06/22/24 18:00 06/24/24 08:20 Pyridostigmine [place] 60 Mg Tablet PO 06/22/25 17:59 60 [...] equipment to enhance the patient's a functional denominational Ensure adequate nutrition and hydration Sleep Discharge planning. Patient was personally seen by me, Dr. Bennett, on the day of encounter, reviewed the history and the relevant portions of the chart, including current orders, allied health and java developer consultant notes, labs/imaging and performed garcia elements of exam and I formulated the plan of care and facilitated the medical decision making. I completed a substantive portion of this encounter, the medical decision makingportion of this note in its entirety, including Allied health note review, nursing note review, java developer consultant note review,discussion with nursing and case management, and more than 50% of my time was spent on counseling and coordination of care, time spent 25 minutes Documented By: Fidel Bennett MD 1352 Signed By: 06/24/24 1359 [facility]11-03-2024 Consult note Author Meera Vargas [facility] Note Date/Time June 23, 2024 5 :21pm [facility] [address] [place] [address] Hospitalist Consult Note Signed Patient: Taurus Garcia MR#: [id number] : 1945 Acct:[id number] Age/Sex: 78 / M Adm Date: 4 Loc: Room: 6T9776-6 Type: ADM IN Attending Dr: Silvestre Grover [...] mg PO DAILY 12/27/17 [History Confirmed 06/22/24] kapdgmwm-afn-twdja acid 0.4 mg-lycopene 300 mcg-lutein 250 mcg [...] rectal suppository (Preparation H(phenyleph,cocoa buttr)) 1 supp W[place] BID PRN hemorrhoids #0 ea 06/22/24 [Rx [...] mg 06/22/24 14:58 Bisacodyl 10 Mg Supp.Rect WY 06/22/25 14:57 DAILY PRN Constipation Docusate Sodium 100 mg 06/22/24 14:58 Docusate 100 Mg Capsule PO 06/22/25 14:57 BID PRN Constipation Docusate Sodium 283 mg 06/22/24 14:58 Docusate Enema 283 Mg/5 Ml Enema [place] 06/22/25 14:57 DAILY PRN Constipation Fish Oil 1,000 mg 06/22/24 21:00 06/23/24 09:15 [place]-3/Fish Oil 1,000 Mg Capsule PO 06/22/25 20:59 [...] 20:59 40 mg BID DORI Administration Phenyleph/Shark Oil/[place] Butter 1 supp 06/22/24 14:57 Phenylephrine/[place] Butter 6.25 Mg/2211 Mg 1 Supp [place] 06/22/25 14:56 BID PRN hemorrhoids Potassium Chloride [...] Tablet PO 06/24/25 08:59 DAILY DORI Pyridostigmine [place] 60 mg 06/22/24 18:00 06/23/24 13:19 Pyridostigmine [place] 60 Mg Tablet PO 06/22/25 17:59 60 [...] % (Auto) 80.3, Lymph % (Auto) 10.7, [place] % (Auto) 8.7, Eos % (Auto) 0.1, Baso % (Auto) 0.2, Nucleat RBC Rel Count 0.1, Neut # (Auto) 9.1 H, Lymph # (Auto) 1.2, [place] # (Auto) 1.0 H, Eos # (Auto) [...] signed by Mateo Horne DO> 06/23/24 1721 [facility] Work Phone: 1(209) 328-494511-03-2024 [place] [address] Hospitalist Consult Note Signed Patient: Taurus Garcia MR#: [id number] : 1945 Acct:[id number] Age/Sex: 78 / M Adm Date: 4 Loc: Room: [address] [place] [address] Type: ADM IN Attending Dr: Silvestre Grover MD Copies to: MD Silvestre Gonsalves II, MD Kristopher L Lindbloom, DO Lynn A Stackhouse-Roby, ZACH~ HPI DATE OF CONSULTATION: 06/23/24 REQUESTING [...] mg PO DAILY 12/27/17 [History Confirmed 06/22/24] zskfgsqh-whp-xyknd acid 0.4 mg-lycopene 300 mcg-lutein 250 mcg [...] % rectal suppository (Preparation H(phenyleph,cocoa buttr))1 supp [place] BID PRN hemorrhoids #0 ea 06/22/24 [Rx [...] mg 06/22/24 14:58 Bisacodyl 10 Mg Supp.Rect WY 06/22/25 14:57 DAILY PRN Constipation Docusate Sodium 100 mg 06/22/24 14:58 Docusate 100 Mg Capsule PO 06/22/25 14:57 BID PRN Constipation Docusate Sodium 283 mg 06/22/24 14:58 Docusate Enema 283 Mg/5 Ml Enema WY 06/22/25 14:57 DAILY PRN Constipation Fish Oil 1,000 mg 06/22/24 21:00 06/23/24 09:15 [place]-3/Fish Oil 1,000 Mg Capsule PO 06/22/25 20:59 [...] 20:59 40 mg BID DORI Administration Phenyleph/Shark Oil/[place] Butter 1 supp 06/22/24 14:57 Phenylephrine/[place] Butter 6.25 Mg/2211 Mg 1 Supp [place] 06/22/25 14:56 BID PRN hemorrhoids Potassium Chloride [...] Tablet PO 06/24/25 08:59 DAILY DORI Pyridostigmine [place] 60 mg 06/22/24 18:00 06/23/24 13:19 Pyridostigmine [place] 60 Mg Tablet PO 06/22/25 17:59 60 [...] % (Auto) 80.3, Lymph % (Auto) 10.7, [place] % (Auto) 8.7, Eos % (Auto) 0.1, Baso % (Auto) 0.2, Nucleat RBC Rel Count 0.1, Neut # (Auto) 9.1 H, Lymph # (Auto) 1.2, [place] # (Auto) 1.0 H, Eos # (Auto) [...] + Hospitalist attending physician. Documented By: Meera Vargas, MEDICAL STAFF SPECIALIST 11/11 1451 Signed By: 06/23/24 1624 06/23/24 1721 [facility]11-01-2024 Consult note Author Fidel Bennett [facility] June 21, 2024 2:55pm Note Date/Time June 21, 2024 1 2:47pm [facility] [address] [place] [address] Physiatry (Rehab) Consult Note Signed Patient: Taurus Garcia MR#: [id number] : 1945 Acct:[id number] Age/Sex: 78 / M Adm Date: 4 Loc: Room: [address] [place] [address] Type: ADM IN Attending Dr: Mateo Horne [...] mg PO DAILY 12/27/17 [History Confirmed 06/19/24] wthbvwah-nlk-rinrv acid 0.4 mg-lycopene 300 mcg-lutein 250 mcg [...] % (Auto) 81.8 Lymph % (Auto) 8.9 [place] % (Auto) 9.1 Eos % (Auto) 0.0 Baso % (Auto) 0.2 Nucleat RBC Rel Count 0.1 Neut # (Auto) 9.6 H Lymph # (Auto) 1.0 [place] # (Auto) 1.1 H Eos # (Auto) [...] chart, including current orders, allied health and java developer consultant notes, labs/imaging and performed garcia elements of exam and I formulated the plan of care and facilitated the medical decision making. I completed a substantive portion of this encounter, the medical decision makingportion of this note in its entirety, including Allied health note review, nursing note review, java developer consultant note review, discussion with nursing and case management, and more than 50% of my time was spent on counseling and coordination of care, time spent 60 minutes Documented By: Fidel Bennett MD 6757 Signed By: <Electronically signed by Fidel Bennett MD> 06/21/24 6138 [facility] Work Phone: 1(110) 775-608111-01-2024 Progress note Author Jamel Packer [facility] June 21, 2024 2:12pm Note Date/Time June 21, 2024 2 :12pm [facility] [address] [place] [address] Neurology Progress Note Signed Patient: Taurus Garcia MR#: [id number] : 1945 Acct:[id number] Age/Sex: 78 / M Adm Date: 4 Loc: Room: [address] [place] [address] Type: ADM IN Attending Dr: Mateo Horne [...] signed by Jamel Packer DO> 06/21/24 1412 [facility] Work Phone: 1(863) 832-569611-01-2024 Progress note Author Mateo Horne [facility] June 21, 2024 2:09pm Note Date/Time June 21, 2024 2 :03pm [facility] [address] [place] [address] Hospitalist Progress Note Signed Patient: Taurus Garcia MR#: [id number] : 1945 Acct:[id number] Age/Sex: 78 / M Adm Date: 4 Loc: Room: [address] [place] [address] Type: ADM IN Attending Dr: Mateo Horne [...] 20:59 40 mg BID DORI Administration Phenyleph/Shark Oil/[place] Butter 1 supp 06/19/24 21:00 Phenylephrine/[place] Butter 6.25 Mg/2211 Mg 1 Supp [place] 06/19/25 20:59 BID PRN hemorrhoids Potassium Chloride [...] 09:01 60 mg DAILY DORI Administration Pyridostigmine [place] 90 mg 06/19/24 18:00 06/21/24 08:15 Pyridostigmine [place] 60 Mg Tablet PO 06/19/25 17:59 90 [...] elevated blood pressure to be problematic 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 Documented By: Mateo Horne DO 3263 Signed By: <Electronically signed by Mateo Horne DO> 06/21/24 2718 [facility] Work Phone: 1(776) 946-715711-01-2024 Progress note Author Abi Biswas [facility] June 21, 2024 10:32am Note Date/Time June 21, 2024 1 0:32am [facility] [address] [place], [place] [address] Pulmonology Progress Note Signed Patient: Taurus Garcia MR#: [id number] : 1945 Acct:[id number] Age/Sex: 78 / M Adm Date: 4 Loc: 3T Room: [address] [place] [address] Type: ADM IN Attending Dr: Mateo Horne [...] signed by Abi Biswas MD> 06/21/24 1032 [facility] Work Phone: 1(990) 284-505210-31-2024 Progress note Author Jamel Packer [facility] June 20, 2024 2:46pm Note Date/Time June 20, 2024 2 :46pm [facility] [address] [place] [address] Neurology Progress Note Signed Patient: Taurus Garcia MR#: [id number] : 1945 Acct:[id number] Age/Sex: 78 / M Adm Date: 4 Loc: Room: [address] [place] [address] Type: ADM IN Attending Dr: Mateo Horne [...] to follow Documented By: Jamel Packer DO 06/20/241441 Signed By: <Electronically signed by Jamel Packer DO> 06/20/24 1446 [facility] Work Phone: 1(160) 145-997410-31-2024 Progress note Author Abi Biswas [facility] June 20, 2024 2:38pm Note Date/Time June 20, 2024 2 :34pm [facility] [address] [place] [address] Pulmonology Progress Note Signed Patient: Taurus Garcia MR#: [id number] : 1945 Acct:[id number] Age/Sex: 78 / M Adm Date: 4 Loc: Room: [address] [place] [address] Type: ADM IN Attending Dr: Mateo Horne [...] signed by Abi Biswas MD> 06/20/24 1438 [facility] Work Phone: 1(572) 914-808310-31-2024 Progress note Author Mateo Horne [facility] June 20, 2024 9:47am Note Date/Time June 20, 2024 9 :47am [facility] [address] [place] [address] Hospitalist Progress Note Signed Patient: Taurus Garcia MR#: [id number] : 1945 Acct:[id number] Age/Sex: 78 / M Adm Date: 4 Loc: Room: 8B5604-2 Type: ADM IN Attending Dr: Mateo Horne [...] mg 06/19/24 14:21 Bisacodyl 10 Mg Supp.Rect WY 06/19/25 14:20 DAILY PRN Constipation Bisacodyl 10 [...] 20:59 40 mg BID DORI Administration Phenyleph/Shark Oil/[place] Butter 1 supp 06/19/24 21:00 Phenylephrine/[place] Butter 6.25 Mg/2211 Mg 1 Supp [place] 06/19/25 20:59 BID PRN hemorrhoids Polyethylene Glycol [...] 14:19 60 mg DAILY DORI Administration Pyridostigmine [place] 90 mg 06/19/24 18:00 06/20/24 09:21 Pyridostigmine [place] 60 Mg Tablet PO 06/19/25 17:59 90 [...] elevated blood pressure to be problematic 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 Documented By: Mateo Horne DO 0941 Signed By: <Electronically signed by Mateo Horne DO> 06/20/24 5173 [facility] Work Phone: 1(811) 353-969510-30-2024 Consult note Author Abi Biswas [facility] June 19, 2024 6:54pm Note Date/Time June 19, 2024 6 :54pm [facility] [address] [place] [address] Pulmonology Consult Note Signed Patient: Taurus Garcia#: [id number] : 1945 Acct:[id number] Age/Sex: 78 / M Adm Date: 4 Loc: Room: [address] [place] [address] Type: ADM IN Attending Dr: Mateo Horne DO Copies to: MD Mateo Gonsalves II, DO Abi Biswas MD~ HPI Date/Time of Consultation: Date of [...] walks with a walker. He came to [facility] ED and was admitted to the ICU. [...] Review of Systems Review of systems: see HPI [facility] Medical History (Updated 06/19/24 @ [...] mg PO DAILY 12/27/17 [History Confirmed 06/19/24] xkkfcism-lee-xmqzo acid 0.4 mg-lycopene 300 mcg-lutein 250 mcg [...] <Electronically signed by Abi Biswas MD> 06/19/241853 [facility] Work Phone: 1(676) 942-325310-30-2024 Consult note Author Jamel Packer [facility] June 19, 2024 3:00pm Note Date/Time June 19, 2024 3 :03pm [facility] [address] [place] [address] Neurology Consult Note Signed Patient: Taurus Garcia MR#: [id number] : 1945 Acct:[id number] Age/Sex: 78 / M Adm Date: 4 Loc: Room: [address] [place] [address] Type: ADM IN Attending Dr: Mateo Horne DO Copies to: DO Komal Bajwa II, MD Kristopher L Lindbloom, DO~ HPI Consult Date: 06/19/24 [employer]: Jamel Packer DO [facility] Medical History (Updated [...] mg PO DAILY 12/27/17 [History Confirmed 06/19/24] uaktyrsu-vpb-loaph acid 0.4 mg-lycopene 300 mcg-lutein 250 mcg tablet (Adults 50Plus) 1 tab PO DAILY 12/27/17 [History Confirmed 06/19/24] omega-3 fatty acids-fish oil 360 mg-1,200 mg capsule (Fish Oil) 1 cap PO BID 12/27/17 [History Confirmed 06/19/24] simvastatin 40 mg tablet 40 mg PO HS 05/09/18 [History Confirmed 06/19/24] furosemide 20 mg tablet [...] Diallo Jr. DRaulORaul06/19/2024 10:01 AM Dictation Location: [place] [address] Therapy Recommendations Therapy Recommendations: ST Recommendations ST [...] signed by Jamel Packer DO> 06/19/24 1500 [facility] Work Phone: 1(219) 927-797010-30-2024 History and physical note Author Mateo Horne [facility] June 19, 2024 2:37pm Note Date/Time June 19, 2024 2 :37pm [facility] ENTER [address] [place] [address] Hospitalist H&P Signed Patient: Taurus Garcia MR#: [id number] : 1945 Acct:[id number] Age/Sex: 78 / M Adm Date: 4 Loc: Room: [address] [place] [address] Type: ADM IN Attending Dr: Mateo Horne [...] prednisone was increased to 60. Year ago, inSept, he presented to the [facility] emergency room and had to be [...] Problem List clean-up per [facility] HTN (hypertension) Problem List clean-up per request of Phys. [facility] Acute exacerbation of myasthenia gravis Problem List clean-up per request of Phys. [facility] Surgical History (Updated 06/19/24 @ 14:33 by [...] mg PO DAILY 12/27/17 [History Confirmed 06/19/24] vlamkxtn-cwq-cqgof acid 0.4 mg-lycopene 300 mcg-lutein 250 mcg [...] Last Values Corrected WBC 8.7 X10E3/uL (4.1-10.5) 10/30/24 09:49 Uncorrected WBC Count 8.7 x10E3/uL (4.1-10.5) [...] % (Auto) 27.5 % (.) 06/19/24 09:49 [place] % (Auto) 11.3 % (.) 06/19/24 09:49 Eos % (Auto) 1.2 % (.) 06/19/24 09:49 Baso % (Auto) 1.0 % (.) 06/19/24 09:49 Nucleat RBC Rel Count 0.1 /100 WBC (0-0.5) 06/19/24 09:49 Neut # (Auto) 5.1 x10E3/uL (1.8-7.7) 06/19/24 09:49 Lymph # (Auto) 2.4 x10E3/uL (1.00-4.8) 06/19/24 09:49 [place] # (Auto) 1.0 x10E3/uL (0.0-0.8) H 06/19/24 [...] signed by Mateo Horne DO> 06/19/24 1437 [facility] Work Phone: 1(100) 825-517310-30-2024 Evaluation note* Diagnosis Onset Date Resolution Status [...] Generalized weakness deleted Carlos barajas 2023 2:40pm [facility] Work Phone: 1([phone]) 469-653110-30-2024 Evaluation note* Diagnosis Onset Date Resolution Status [...] inactive 2023 2:40pm Generalized weakness deleted Nove mber 2023 2:40pm MTAT (acute kidney injury) acute July 09, 2024 5:43pm Change in vision acute July 09, 2024 5:43pm Generalized weakness acute [facility] 2023 5:43pm [facility] Work Phone: 1(661) 286-387010-30-2024 Evaluation note* Diagnosis Onset Date Resolution Status [...] inactive 2023 2:40pm Generalized weakness deleted Nove mber 2023 2:40pm Myasthenia gravis acute Novembe r 2023 5:43pm MATT (acute kidney injury) resolved July 09, 2024 5:43pm Change in vision deleted July 09, 2024 5:43pm Generalized weakness deleted Carlos mber 2023 5:43pm Chronic anticoagulation acute D ecember 2023 4:47pm Chronic back pain acute Decembe r 2023 4:47pm Counseling regarding advance directives and goals of care acute Dec ember 2023 4:47pm Generalized weakness acute Dece mber 2023 4:47pm GERD (gastroesophageal reflu x disease) acute July 28 4:47pm History of pulmonary embolism acute July 28, 2024 4:47pm HTN (hypertension) acute Decemb er 2023 4:47pm Morbid obesity with BMI of 45.0-49.9, adult acute July 28, 024 4:47pm Myasthenia gravis acute Decembe r [...] September 11, 2024 10:57am HTN (hypertension) acute Auguar 2024 10:57am Morbid obesity with BMI of 45.0-49.9, adult acute September 11, 2 025 10:57am Myasthenia gravis acute September 11, 2024 10:57am Myasthenia gravis in crisis acute September 11, 2024 10:57am JAMISON on CPAP acute September 11, 2024 10:57am [facility] Work Phone: 1(425) 750-195310-24-2024 History of Present illness Narrative* Real Og, [...] Diagnosis Date Acute respiratory failure with hypoxia ([facility]) 11/17/2023 Acute respiratory insufficiency 12/15/2018 d/t Pulmonary Emboli Allergic rhinitis due to other allergen Autoimmune disorder (CMS/HCC) Bilateral pulmonary embolism (CMS/HCC) 2019 Acute Hypoxic Resp. 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 Cervical radiculopathy at C8 05/2017 CTS (carpal tunnel syndrome) 05/2017 Bilateral Essential hypertension, benign ([facility]) Facial droop History of echocardiogram 12/15/2018 EF 60-65%, LVH Hypertension ([facility]) Impaired glucose tolerance test Oral Lumbosacral spondylosis without myelopathy LVH (left ventricular hypertrophy) 12/15/2018 ECHO EF 60-65% Macular edema 2008 /pucker Muscle cramp Myasthenia gravis (CMS/[facility]) 12/27/2017 / dyspnea Myasthenic crisis ([facility]) 05/10/2023 Obesity Obstructive sleep apnea (adult) (pediatric) Pulmonary emboli ([facility]/HCC) 11/17/2023 Pulmonary embolism ([facility]) 11/2018 Pure hypercholesterolemia ([facility]) Shortness of breath Superficial thrombophlebitis 12/16/2018 Rt Thigh Tremor Troponin I above reference range 11/17/2023 Urothelial carcinoma ([facility]/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 UTI, [...] FOOD, Disp: 180 tablet, Rfl: 3 HYDROcodone-acetaminophen ([place]) 5-325 MG tablet, Take 1 tablet by [...] Disp: 100 tablet, Rfl: 3 nystatin (Mycostatin) 222584 UNIT/GM powder, APPLY TO THE AFFECTED AREA(S) [...] min Stress: No Stress Concern Present (03/17/2023) [employer] - Occupational Stress Questionnaire Feeling of Stress : Only a little Social Connections: Moderately Isolated (03/17/2023) Social Connection and Isolation Panel [NHANES] Frequency of Communication with Friends and Family: More than three times a week Frequency of Social Gatherings with Friends and Family: Once a week Attends Pent[employer] Services: Never Active Member of Clubs or [...] condition. Real Og DPM documented in this encounterGolden Valley Memorial [id number] History of Present illness Narrative* Stanley Saunders, [...] HYDROcodone-acetaminophen 5-325 MG tablet; Commonly known as: [place] lisinopril 20 MG tablet; TAKE 1 TABLET BY MOUTH ONCE DAILY loratadine 10 MG tablet; Commonly known as: Claritin nebivolol 10 MG tablet; Commonly known as: Bystolic; Take 1 tablet (10 mg) by mouth Daily nystatin 558859 UNIT/GM powder; Commonly known as: Mycostatin omega-3 [...] wrist extensors , wrist flexor , and air traffic instructor strength 5/5. LUE strength deltoid , biceps , triceps , wrist extensors , wrist flexor , and air traffic instructor strength 5/5. RLE strength iliopsoas, quadriceps, tibialis [...] reflex 1+. LLE Knee reflex 1+. Coordination: Cugfrk-hw-idff testing normal. Rapid alternating movements are normal. Gait: Normal. Review and summary of old records: I reviewed documentation from the patient's emergency department visit at [facility] on 02/12/24. The patient presented with mild [...] MRI of the brain without contrast at [facility] on 02/20/18: Unremarkable EMG of the bilateral upper extremities on 06/19/17: Bilateral median neuropathy such as in carpal tunnel syndrome which is mild in degree electrically. Also a remote right C8 radiculopathy. Assessment/Plan Diagnoses and all orders for this visit: Myasthenia gravis ([facility]) 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 MRI of the brain in 02/2018 was unremarkable. He denies ptosis, double vision, difficulty speaking, difficulty swallowing, orincreased shortness of breath since the prior neurology appointment. The patient was evaluated at [facility] ED on 02/12/24 due to increased generalized [...] index (BMI) of45.0 to 49.9 in adult ([facility]) The patient is obese. PLAN: - [...] new or worsening symptoms. documented in this encounterGolden Valley Memorial [id number] History of Present illness Narrative* Komal Schaffer [...] by mouth in the morning. nystatin (Mycostatin) 466786 UNIT/GM powder APPLY TO THE AFFECTED AREA(S) [...] taxes?: Yes Cognitive Screening Three Word Registration: Dulce Mcdowell, Chair Clock Drawing: Normal Clock - 2 [...] this visit: Routine general medical examination at [facility] care facility ACP (advance care planning) Osteoarthritis [...] gravis without (acute) exacerbation (G70.00) Atherosclerosis of viejas artery of both lower extremities with intermittent claudication (CMS/HCC) Morbid (severe) obesity due to excess calories (E66.01) Body mass index [BMI] 45.0-49.9, adult (Z68.42) Follow up in about 4 months (around 02/03/2024) for Routine F/U. No orders of the defined types were placed in this encounter. Electronically signed by Komal Schaffer MD on October 05, 2023 documented in this [place] [facility]02-05-2024 Telephone encounter Note* Telephone Encounter - Komal Schaffer MD - 09/25/2023 10:15 AM EST Lab order. [facility] [id number] Miscellaneous Notes* Telephone Encounter - Komal Schaffer MD - 09/25/2023 10:15 AM EST Lab order. documented in this [facility]01-31-2024 History of Present illness Narrative* Baltazar Hoover, [...] mouth once daily., Disp: , Rfl: omega 3-lio-ayf-fish oil 360 mg-108 mg- 180 mg-1,200 mg [...] type, unspecified whether acute cor pulmonale present ([facility]/HCC) 3. Myasthenia gravis ([facility]) 4. High risk medication use 5. Essential hypertension 6. Mixed hyperlipidemia 7. Morbid obesity with BMI of 45.0-49.9, adult ([facility]) [facility] Work Phone: 1(967) 632-794801-31-2024 Instructions* Patient Instructions* Connie Morejon LPN - [...] Off amio,stop amio testing documented in this encounterUnC[facility] Work Phone: 1(876) 177-651110-21-2023 Discharge summary Author Silvestre Grover [facility] June 10, 2023 8:11am Note Date/Time June 10, 2023 8 :11am [facility] EN[facility] [address] [place] [address] Discharge Summary Signed Patient: Taurus Garcia MR#: [id number] : 1945 Acct:[id number] Age/Sex: 77 / M Adm Date: 3 Loc: Room: [address] [place] [address]: Silvestre Grover MD Copies to: [...] due to MG crisis. Patient presented to [facility] on 05/11/2023 with complaints of worseninggeneralized weakness over the course of several days. He was found to be mildlyhypoxic. Also complaining of urinary symptoms. Initially admitted to [facility] for observation however developed worsening respiratory status with increased secretions and inability to protect own airway and was subsequently intubated and transferred to [facility] for neurology services. Patient received [...] Plan Discharge Plan Patient Disposition: Home Health [facility] Activity: Ambulate as Tolerated Diet: Regular Additional [...] home prior. Your Home Health agency is [facility] ( ). They will contact you 24-48 [...] call and check back for vaccine availability ([phone]). Prescriptions: New nystatin [Nystop] 100,000 unit/gram Powder [...] signed by Silvestre Grover MD> 06/10/23 0811 [facility] Work Phone: 1([phone]) 130-408810-19-2023 Progress note Author Jarret Garza [facility] June 08, 2023 7:01am Note Date/Time June 07, 2023 5 :18pm [facility] [address] [place] [address] Hospitalist Progress Note Signed Patient: Taurus Garcia MR#: [id number] : 1945 Acct:[id number] Age/Sex: 77 / M Adm Date: 3 Loc: Room: 5T4055-0 Type: ADM IN Attending Dr: Silvestre Grover [...] mg 05/21/23 14:25 Bisacodyl 10 Mg Supp.Rect WY 05/20/24 14:24 DAILY PRN Constipation Docusate Sodium 100 mg 05/21/23 14:25 Docusate 100 Mg Capsule PO 05/20/24 14:24 BID PRN Constipation Docusate Sodium 283 mg 05/21/23 14:25 Docusate Enema 283 Mg/5 Ml Enema [place] 05/20/24 14:24 DAILY PRN Constipation Fish Oil 1,000 mg 05/21/23 21:00 06/07/23 09:38 [place]-3/Fish Oil 1,000 Mg Capsule PO 05/20/24 20:59 [...] 05/31/24 08:59 Not Given DAILY DORI Pyridostigmine [place] 60 mg 05/21/23 18:00 06/07/23 17:02 Pyridostigmine [place] 60 Mg Tablet PO 05/20/24 17:59 [...] signed by Jarret Garza MD> 06/08/23 0701 [facility] Work Phone: 1(901) 360-255610-18-2023 Progress note Author Silvestre Reilly [facility] June 07, 2023 3:10pm Note Date/Time June 07, 2023 1 :12pm [facility] EN[facility] [address] [place] [address] Physiatry(Rehab) Progress Note Signed Patient: Taurus Garcia MR#: [id number] : 1945 Acct:[id number] Age/Sex: 77 / M Adm Date: 3 Loc: Room: 5C9802-6 Type: ADM IN Attending Dr: Silvestre Grover [...] due to MG crisis. Patient presented to [facility] on 05/11/2023 with complaints of worseninggeneralized weakness over the course of several days. He was found to be mildlyhypoxic. Also complaining of urinary symptoms. Initially admitted to [facility] for observation however developed worsening respiratory status with increased secretions and inability to protect own airway and was subsequently intubated and transferred to [facility] for neurology services. Patient received [...] mg 05/21/23 14:25 Bisacodyl 10 Mg Supp.Rect [place] 05/20/24 14:24 DAILY PRN Constipation Docusate Sodium 100 mg 05/21/23 14:25 Docusate 100 Mg Capsule PO 05/20/24 14:24 BID PRN Constipation Docusate Sodium 283 mg 05/21/23 14:25 Docusate Enema 283 Mg/5 Ml Enema [place] 05/20/24 14:24 DAILY PRN Constipation Fish Oil 1,000 mg 05/21/23 21:00 06/07/23 09:38 [place]-3/Fish Oil 1,000 Mg Capsule PO 05/20/24 20:59 [...] Packet PO 05/31/24 08:59 Not Given DAILY [facility] Pyridostigmine [place] 60 mg 05/21/23 18:00 06/07/23 09:39 Pyridostigmine [place] 60 Mg Tablet PO 05/20/24 17:59 [...] tab DAILY DORI Administration Assessment/Plan <Antonia Grier MEDICAL STAFF SPECIALIST - Last Filed: 06/07/23 13:25> Assessment/Plan [...] secondary to myasthenic crisis. Initially admitted to [facility] later transferred to [facility] for neurology services. Had to be intubated [...] equipment to enhance the patient's a functional denominational Ensure adequate nutrition and hydration Sleep: No concerns. Pain: Continue current regimen Discharge planning: Hopefully home with his end of week/early next week. I spent greater than 15 minutes for services, including iivx-fi-fysw encounter with the patient, discussion of the case, plan of care, and exam; and zubdxjo-og-vngu activities, such as reviewing pertinent java developer consultant documentation, recent therapy notes, laboratory and radiology studies, and discussion of case with care team including physician, nursing, foster care case manager, and therapists. More than 50 [...] Allied health note review, nursing note review, java developer consultant note review, discussion with nursing and case management, and more than 50% of my time was spent on counseling and coordination of care, time spent 25 minutes Patient was personally seen by me, Dr. Grover, on the day of encounter, reviewed the history and the relevant portions of the chart, including current orders, allied health and java developer consultant notes, labs/imaging and performed garcia elements of exam and I formulated the plan of care and facilitated the medical decision making. Documented By: Antonia Grier APRN 06/07/23 1 310 Signed By: <Electronically signed by ZACH Grier> 06/07/23 1325 <Electronically signed by Silevstre Grover MD> 06/07/23 4180 [facility] Work Phone: 1(918) 303-657210-17-2023 Progress note Author Silvestre Grover [facility] June 06, 2023 3:59pm Note Date/Time June 06, 2023 3 :59pm [facility] [address] [place] [address] Physiatry(Rehab) Progress Note Signed Patient: Taurus Garcia MR#: [id number] : 1945 Acct:[id number] Age/Sex: 77 / M Adm Date: 3 Loc: Room: 2K3494-2 Type: ADM IN Attending Dr: Silvestre Grover MD Copies to: ~ Date of Service: 06/06/2023 Subjective Subjective Narrative: Mr. Garcia is a 77 year old male with past medical history of myasthenia gravis,hypertension, A-fib anticoagulated with Eliquis, PE, CKD, obstructive sleep apnea on BiPAP, who presents to acute inpatient rehab with functional impairments due to MG crisis. Patient presented to [facility] on 05/11/2023 with complaints of worseninggeneralized weakness over the course of several days. He was found to be mildlyhypoxic. Also complaining of urinary symptoms. Initially admitted to [facility] for observation however developed worsening respiratory status with increased secretions and inability to protect own airway and was subsequently intubated and transferred to [facility] for neurology services. Patient received [...] mg 05/21/23 14:25 Bisacodyl 10 Mg Supp.Rect [place] 05/20/24 14:24 DAILY PRN Constipation Docusate Sodium 100 mg 05/21/23 14:25 Docusate 100 Mg Capsule PO 05/20/24 14:24 BID PRN Constipation Docusate Sodium 283 mg 05/21/23 14:25 Docusate Enema 283 Mg/5 Ml Enema [place] 05/20/24 14:24 DAILY PRN Constipation Fish Oil 1,000 mg 05/21/23 21:00 06/06/23 10:08 [place]-3/Fish Oil 1,000 Mg Capsule PO 05/20/24 20:59 [...] 05/31/24 08:59 Not Given DAILY DORI Pyridostigmine [place] 60 mg 05/21/23 18:00 06/06/23 14:39 Pyridostigmine [place] 60 Mg Tablet PO 05/20/24 17:59 [...] secondary to myasthenic crisis. Initially admitted to [facility] later transferred to [facility] for neurology services. Had to be intubated [...] equipment to enhance the patient's a functional denominational Ensure adequate nutrition and hydration Sleep: No concerns. Pain: Continue current regimen Discharge planning: Hopefully home with his end of week/early next week. Plan: I completed a substantive portion of this encounter, the medical decision making portion of this note in its entirety, including Allied health note review, nursing note review, java developer consultant note review, discussion with nursing and case management, and more than 50% of my time was spent on counseling and coordination of care, time spent 25 minutes Patient was personally seen by me, Dr. Grover, on the day of encounter, reviewed the history and the relevant portions of the chart, including current orders, allied health and java developer consultant notes, labs/imaging and performed garcia elements of exam and I formulated the plan of care and facilitated the medical decision making. Documented By: Silvestre Grover MD 06/06/23 155 Signed By: <Electronically signed by Silvestre Grover MD> 06/06/23 3275 [facility] Work Phone: 1(657) 980-235810-17-2023 Hospital Discharge instructionsAmbulatory Orders* Initiate Home Health [...] home prior. Your Home Health agency is [facility] ( ). They will contact you 24-48 [...] call and check back for vaccine availability ([phone]).[facility] Work Phone: 1(433) 386-662810-17-2023 Progress note Author Silvestre Grover [facility] June 06, 2023 11:30am Note Date/Time June 05, 2023 1 :16pm [facility] [address] [place] [address] Physiatry(Rehab) Progress Note Signed Patient: Taurus Garcia MR#: [id number] : 1945 Acct:[id number] Age/Sex: 77 / M Adm Date: 3 Loc: Room: [address] [place] [address] Type: ADM IN Attending Dr: Silvestre Grover MD Copies to: ~ Date of Service: 06/05/2023 Subjective Subjective Narrative: Mr. Garcia is a 77 year old male with past medical history of myasthenia gravis,hypertension, A-fib anticoagulated with Eliquis, PE, CKD, obstructive sleep apnea on BiPAP, who presents to acute inpatient rehab with functional impairments due to MG crisis. Patient presented to [facility] on 05/11/2023 with complaints of worseninggeneralized weakness over the course of several days. He was found to be mildlyhypoxic. Also complaining of urinary symptoms. Initially admitted to [facility] for observation however developed worsening respiratory status with increased secretions and inability to protect own airway and was subsequently intubated and transferred to [facility] for neurology services. Patient received [...] mg 05/21/23 14:25 Bisacodyl 10 Mg Supp.Rect WY 05/20/24 14:24 DAILY PRN Constipation Docusate Sodium 100 mg 05/21/23 14:25 Docusate 100 Mg Capsule PO 05/20/24 14:24 BID PRN Constipation Docusate Sodium 283 mg 05/21/23 14:25 Docusate Enema 283 Mg/5 Ml Enema [place] 05/20/24 14:24 DAILY PRN Constipation Fish Oil 1,000 mg 05/21/23 21:00 06/05/23 08:04 [place]-3/Fish Oil 1,000 Mg Capsule PO 05/20/24 20:59 [...] 08:59 1 packet DAILY DORI Administration Pyridostigmine [place] 60 mg 05/21/23 18:00 06/05/23 08:03 Pyridostigmine [place] 60 Mg Tablet PO 05/20/24 17:59 [...] secondary to myasthenic crisis. Initially admitted to [facility] later transferred to [facility] for neurology services. Had to be intubated [...] equipment to enhance the patient's a functional denominational Ensure adequate nutrition and hydration Sleep: No concerns. Pain: Continue current regimen Discharge planning: Hopefully home with his end of week/early next week. Plan: I completed a substantive portion of this encounter, the medical decision making portion of this note in its entirety, including Allied health note review, nursing note review, java developer consultant note review, discussion with nursing and case management, and more than 50% of my time was spent on counseling and coordination of care, time spent 25 minutes Patient was personally seen by me, Dr. Grover, on the day of encounter, reviewed the history and the relevant portions of the chart, including current orders, allied health and java developer consultant notes, labs/imaging and performed garcia elements of exam and I formulated the plan of care and facilitated the medical decision making. Documented By: Silvestre Grover MD 06/05/23 1316 Signed By: <Electronically signed by Silvestre Grover MD> 06/06/23 1130 [facility] Work Phone: 1([phone]) 370-612610-16-2023 Progress note Author Silvestre Grover [facility] June 05, 2023 11:41am Note Date/Time June 05, 2023 1 1:41am [facility] [address] [place] [address] Physiatry(Rehab) Progress Note Signed Patient: Taurus Garcia MR#: [id number] : 1945 Acct:[id number] Age/Sex: 77 / M Adm Date: 3 Loc: Room: 3D2157-5 Type: ADM IN Attending Dr: Silvestre Grover MD Copies to: ~ Date of Service: 06/02/2023 Subjective Subjective Narrative: Mr. Garcia is a 77 year old male with past medical history of myasthenia gravis,hypertension, A-fib anticoagulated with Eliquis, PE, CKD, obstructive sleep apnea on BiPAP, who presents to acute inpatient rehab with functional impairments due to MG crisis. Patient presented to [facility] on 05/11/2023 with complaints of worseninggeneralized weakness over the course of several days. He was found to be mildlyhypoxic. Also complaining of urinary symptoms. Initially admitted to [facility] for observation however developed worsening respiratory status with increased secretions and inability to protect own airway and was subsequently intubated and transferred to [facility] for neurology services. Patient received [...] mg 05/21/23 14:25 Bisacodyl 10 Mg Supp.Rect [place]Y 05/20/24 14:24 DAILY PRN Constipation Docusate Sodium 100 mg 05/21/23 14:25 Docusate 100 Mg Capsule PO 05/20/24 14:24 BID PRN Constipation Docusate Sodium 283 mg 05/21/23 14:25 Docusate Enema 283 Mg/5 Ml Enema [place] 05/20/24 14:24 DAILY PRN Constipation Fish Oil 1,000 mg 05/21/23 21:00 06/05/23 08:04 [place]-3/Fish Oil 1,000 Mg Capsule PO 05/20/24 20:59 [...] 08:00 Psyllium Husk 3.4 Gm Packet PO 10/11/24 08:59 1 packet DAILY DORI Administration Pyridostigmine [place] 60 mg 05/21/23 18:00 06/05/23 08:03 Pyridostigmine [place] 60 Mg Tablet PO 05/20/24 17:59 [...] secondary to myasthenic crisis. Initially admitted to [facility] later transferred to [facility] for neurology services. Had to be intubated [...] equipment to enhance the patient's a functional denominational Ensure adequate nutrition and hydration Sleep: No concerns. Pain: Continue current regimen Discharge planning: Hopefully home with his end of next week. Plan: I completed a substantive portion of this encounter, the medical decision making portion of this note in its entirety, including Allied health note review, nursing note review, java developer consultant note review, discussion with nursing and case management, and more than 50% of my time was spent on counseling and coordination of care, time spent 25 minutes Patient was personally seen by me, Dr. Grover, on the day of encounter, reviewed the history and the relevant portions of the chart, including current orders, allied health and java developer consultant notes, labs/imaging and performed garcia elements of exam and I formulated the plan of care and facilitated the medical decision making. Documented By: Silvestre Grover MD 06/05/23 1139 Signed By: <Electronically signed by Silvestre Grover MD> 06/05/23 1141 [facility] Work Phone: 1(808) 625-716710-14-2023 Progress note Author Fidel Bennett [facility] June 03, 2023 3:02pm Note Date/Time June 03, 2023 3 :02pm [facility] [address] [place] [address] Physiatry(Rehab) Progress Note Signed Patient: Taurus Garcia MR#: [id number] : 1945 Acct:[id number] Age/Sex: 77 / M Adm Date: 3 Loc: 5T Room: 5N9227-5 Type: ADM IN Attending Dr: Silvestre Grover MD Copies to: ~ Date of Service: 06/03/2023 Subjective Subjective Narrative: Mr. Garcia is a 77 year old male with past medical history of myasthenia gravis,hypertension, A-fib anticoagulated with Eliquis, PE, CKD, obstructive sleep apnea on BiPAP, who presents to acute inpatient rehab with functional impairments due to MG crisis. Patient presented to [facility] on 05/11/2023 with complaints of worseninggeneralized weakness over the course of several days. He was found to be mildlyhypoxic. Also complaining of urinary symptoms. Initially admitted to [facility] for observation however developed worsening respiratory status with increased secretions and inability to protect own airway and was subsequently intubated and transferred to [facility] for neurology services. Patient received [...] mg 05/21/23 14:25 Bisacodyl 10 Mg Supp.Rect [place] 05/20/24 14:24 DAILY PRN Constipation Docusate Sodium 100 mg 05/21/23 14:25 Docusate 100 Mg Capsule PO 05/20/24 14:24 BID PRN Constipation Docusate Sodium 283 mg 05/21/23 14:25 Docusate Enema 283 Mg/5 Ml Enema [place] 05/20/24 14:24 DAILY PRN Constipation Fish Oil 1,000 mg 05/21/23 21:00 06/03/23 09:45 [place]-3/Fish Oil 1,000 Mg Capsule PO 05/20/24 20:59 [...] 08:59 1 packet DAILY DORI Administration Pyridostigmine [place] 60 mg 05/21/23 18:00 06/03/23 14:48 Pyridostigmine [place] 60 Mg Tablet PO 05/20/24 17:59 [...] secondary to myasthenic crisis. Initially admitted to [facility] later transferred to [facility] for neurology services. Had to be intubated [...] equipment to enhance the patient's a functional denominational Ensure adequate nutrition and hydration Sleep: No concerns. Pain: Continue current regimen Discharge planning: Hopefully home with his end of next week. Plan: I completed a substantive portion of this encounter, the medical decision making portion of this note in its entirety, including Allied health note review, nursing note review, java developer consultant note review, discussion with nursing and case management, and more than 50% of my time was spent on counseling and coordination of care, time spent 25 minutes Patient was personally seen by me, Dr. Bennett, on the day of encounter, reviewed the history and the relevant portions of the chart, including current orders, allied health and java developer consultant notes, labs/imaging and performed garcia elements of exam and I formulated the plan of care and facilitated the medical decision making. Documented By: Fidel Bennett MD [id number] Signed By: <Electronically signed by Fidel Bennett MD> 06/03/23 1502 [facility] Work Phone: 1(294) 768-324610-13-2023 Progress note Author Silvestre Grover [facility] June 02, 2023 10:48am Note Date/Time June 01, 2023 1 :12pm [facility] [address] [place] [address] Physiatry(Rehab) Progress Note Signed Patient: Taurus Garcia MR#: [id number] : 1945 Acct:[id number] Age/Sex: 77 / M Adm Date: 3 Loc: Room: [address] [place] [address] Type: ADM IN Attending Dr: Silvestre Grover [...] due to MG crisis. Patient presented to [facility] on 05/11/2023 with complaints of worseninggeneralized weakness over the course of several days. He was found to be mildlyhypoxic. Also complaining of urinary symptoms. Initially admitted to [facility] for observation however developed worsening respiratory status with increased secretions and inability to protect own airway and was subsequently intubated and transferred to [facility] for neurology services. Patient received [...] more active in therapy. This morning he [id number]+90 feet with a rolling walker with wheelchair [...] affect appropriate. Normal speech. Objective <Antonia Grier, MEDICAL STAFF SPECIALIST - Last Filed: 06/01/23 13:12> Labs 05/30/23 [...] mg 05/21/23 14:25 Bisacodyl 10 Mg Supp.Rect WY 05/20/24 14:24 DAILY PRN Constipation Docusate Sodium 100 mg 05/21/23 14:25 Docusate 100 Mg Capsule PO 05/20/24 14:24 BID PRN Constipation Docusate Sodium 283 mg 05/21/23 14:25 Docusate Enema 283 Mg/5 Ml Enema [place] 05/20/24 14:24 DAILY PRN Constipation Fish Oil 1,000 mg 05/21/23 21:00 06/01/23 10:05 [place]-3/Fish Oil 1,000 Mg Capsule PO 05/20/24 20:59 [...] 08:59 1 packet DAILY DORI Administration Pyridostigmine [place] 60 mg 05/21/23 18:00 06/01/23 10:05 Pyridostigmine [place] 60 Mg Tablet PO 05/20/24 17:59 [...] Assessment/Plan <Antonia Grier, ZACH - Last Filed: 06/01/23 13:12> Assessment/Plan (1) [...] secondary to myasthenic crisis. Initially admitted to [facility] later transferred to [facility] for neurology services. Had to be intubated [...] equipment to enhance the patient's a functional denominational Ensure adequate nutrition and hydration Sleep: No concerns. Pain: Continue current regimen Discharge planning: Hopefully home with his end of next week. I spent greater than 15 minutes for services, including [id number] encounter with the patient, discussion of the case, plan of care, and exam; and [id number] activities, such as reviewing pertinent java developer consultant documentation, recent therapy notes, laboratory and radiology studies, and discussion of case with care team including physician, nursing, foster care case manager, and therapists. More than 50 [...] chart, including current orders, allied health and java developer consultant notes, labs/imaging and plan of care as above. Documented By: Antonia Grier APRN 06/01/23 1 304 Signed By: <Electronically signed by ZACH Grier> 06/01/23 1312 <Electronically signed by Silvestre Grover MD> 06/02/23 3518 [facility] Work Phone: 1(262) 213-242110-13-2023 Progress note Author Meera Javier [facility] June 02, 2023 8:21am Note Date/Time May 31, 2023 2 :26pm [facility] [address] [place] [address] Hospitalist Progress Note Signed Patient: Taurus Garcia MR#: [id number] : 1945 Acct:[id number] Age/Sex: 77 / M Adm Date: 3 Loc: Room: [address] [place] [address] Type: ADM IN Attending Dr: Silvestre Grover [...] mg 05/21/23 14:25 Bisacodyl 10 Mg Supp.Rect WY 05/20/24 14:24 DAILY PRN Constipation Docusate Sodium 100 mg 05/21/23 14:25 Docusate 100 Mg Capsule PO 05/20/24 14:24 BID PRN Constipation Docusate Sodium 283 mg 05/21/23 14:25 Docusate Enema 283 Mg/5 Ml Enema [place] 05/20/24 14:24 DAILY PRN Constipation Fish Oil 1,000 mg 05/21/23 21:00 05/31/23 07:49 [place]-3/Fish Oil 1,000 Mg Capsule PO 05/20/24 20:59 [...] Packet PO 05/31/24 08:59 DAILY DORI Pyridostigmine [place] 60 mg 05/21/23 18:00 05/31/23 14:13 Pyridostigmine [place] 60 Mg Tablet PO 05/20/24 17:59 [...] signed by ANP-BC Meera Javier> 06/02/23 0821 [facility] Work Phone: 1([phone] 105-133210-11-2023 Progress note Author Silvestre Grover [facility] May 31, 2023 10:21am Note Date/Time May 31, 2023 1 0:17am [facility] [address] [place] [address] Physiatry(Rehab) Progress Note Signed Patient: Taurus Garcia MR#: [id number] : 1945 Acct:[id number] Age/Sex: 77 / M Adm Date: 3 Loc: Room: 1X6120-3 Type: ADM IN Attending Dr: Silvestre Grover MD Copies to: ~ Date of Service: 05/31/2023 Subjective Subjective Narrative: Mr. Garcia is a 77 year old male with past medical history of myasthenia gravis,hypertension, A-fib anticoagulated with Eliquis, PE, CKD, obstructive sleep apnea on BiPAP, who presents to acute inpatient rehab with functional impairments due to MG crisis. Patient presented to [facility] on 05/11/2023 with complaints of worseninggeneralized weakness over the course of several days. He was found to be mildlyhypoxic. Also complaining of urinary symptoms. Initially admitted to [facility] for observation however developed worsening respiratory status with increased secretions and inability to protect own airway and was subsequently intubated and transferred to [facility] for neurology services. Patient received [...] mg 05/21/23 14:25 Bisacodyl 10 Mg Supp.Rect [place]Y 05/20/24 14:24 DAILY PRN Constipation Docusate Sodium 100 mg 05/21/23 14:25 Docusate 100 Mg Capsule PO 05/20/24 14:24 BID PRN Constipation Docusate Sodium 283 mg 05/21/23 14:25 Docusate Enema 283 Mg/5 Ml Enema [place] 05/20/24 14:24 DAILY PRN Constipation Fish Oil 1,000 mg 05/21/23 21:00 05/31/23 07:49 [place]-3/Fish Oil 1,000 Mg Capsule PO 05/20/24 20:59 1,000 mg BID DORI Administration Furosemide 20 mg 10/02/23 09:00 05/31/23 07:49 Furosemide 20 Mg Tablet [...] 08:59 10 mg DAILY DORI Administration Pyridostigmine [place] 60 mg 05/21/23 18:00 05/31/23 07:50 Pyridostigmine [place] 60 Mg Tablet PO 05/20/24 17:59 [...] secondary to myasthenic crisis. Initially admitted to [facility] later transferred to [facility] for neurology services. Had to be intubated [...] equipment to enhance the patient's a functional denominational Ensure adequate nutrition and hydration Sleep: No concerns. Pain: Continue current regimen Discharge planning: Hopefully home with his end of next week. Plan: I completed a substantive portion of this encounter, the medical decision making portion of this note in its entirety, including Allied health note review, nursing note review, java developer consultant note review, discussion with nursing and case management, and more than 50% of my time was spent on counseling and coordination of care, time spent 25 minutes Patient was personally seen by me, Dr. Grover, on the day of encounter, reviewed the history and the relevant portions of the chart, including current orders, allied health and java developer consultant notes, labs/imaging and performed garcia elements of exam and I formulated the plan of care and facilitated the medical decision making. Documented By: Silvestre Grover MD 05/31/23 1017 Signed By: <Electronically signed by Silvestre Grover MD> 05/31/23 1021 [facility] Work Phone: 1(171) 435-760010-10-2023 Progress note Author Silvestre Grover [facility] May 30, 2023 12:01pm Note Date/Time May 30, 2023 1 2:01pm [facility] [address] [place] [address] Physiatry(Rehab) Progress Note Signed Patient: Taurus Garcia MR#: [id number] : 1945 Acct:[id number] Age/Sex: 77 / M Adm Date: 3 Loc: Room: 2F7836-2 Type: ADM IN Attending Dr: Silvestre Grover MD Copies to: ~ Date of Service: 05/30/2023 Subjective Subjective Narrative: Mr. Garcia is a 77 year old male with past medical history of myasthenia gravis,hypertension, A-fib anticoagulated with Eliquis, PE, CKD, obstructive sleep apnea on BiPAP, who presents to acute inpatient rehab with functional impairments due to MG crisis. Patient presented to [facility] on 05/11/2023 with complaints of worseninggeneralized weakness over the course of several days. He was found to be mildlyhypoxic. Also complaining of urinary symptoms. Initially admitted to [facility] for observation however developed worsening respiratory status with increased secretions and inability to protect own airway and was subsequently intubated and transferred to [facility] for neurology services. Patient received [...] % (Auto) 51.5 Lymph % (Auto) 29.7 [place] % (Auto) 14.8 Eos % (Auto) 3.8 Baso % (Auto) 0.2 Nucleat RBC Rel Count 0.2 Neut # (Auto) 2.9 Lymph # (Auto) 1.7 [place] # (Auto) 0.8 Eos # (Auto) 0.2 [...] mg 05/21/23 14:25 Bisacodyl 10 Mg Supp.Rect [place]Y 05/20/24 14:24 DAILY PRN Constipation Docusate Sodium 100 mg 05/21/23 14:25 Docusate 100 Mg Capsule PO 05/20/24 14:24 BID PRN Constipation Docusate Sodium 283 mg 05/21/23 14:25 Docusate Enema 283 Mg/5 Ml Enema [place] 05/20/24 14:24 DAILY PRN Constipation Fish Oil 1,000 mg 05/21/23 21:00 05/30/23 08:30 [place]-3/Fish Oil 1,000 Mg Capsule PO 05/20/24 20:59 [...] Bottle TOPICAL 05/21/24 08:59 1 applic TID ODRI Administration Potassium Chloride 10 meq 05/22/23 09:00 05/30/23 08:30 Potassium Chloride Liquid 20 Meq/15 Ml Udc PO 05/21/24 08:59 10 meq DAILY DORI Administration Prednisone 10 mg 05/22/23 09:00 05/30/23 08:31 Prednisone 10 Mg Tablet PO 05/21/24 08:59 10 mg DAILY DORI Administration Pyridostigmine [place] 60 mg 05/21/23 18:00 05/30/23 08:30 Pyridostigmine [place] 60 Mg Tablet PO 05/20/24 17:59 [...] secondary to myasthenic crisis. Initially admitted to [facility] later transferred to [facility] for neurology services. Had to be intubated [...] equipment to enhance the patient's a functional denominational Ensure adequate nutrition and hydration Sleep: No concerns. Pain: Continue current regimen Discharge planning: Hopefully home with his end of next week. Plan: I completed a substantive portion of this encounter, the medical decision making portion of this note in its entirety, including Allied health note review, nursing note review, java developer consultant note review, discussion with nursing and case management, and more than 50% of my time was spent on counseling and coordination of care, time spent 25 minutes Patient was personally seen by me, Dr. Grover, on the day of encounter, reviewed the history and the relevant portions of the chart, including current orders, allied health and java developer consultant notes, labs/imaging and performed garcia elements of exam and I formulated the plan of care and facilitated the medical decision making. Documented By: Silvestre Grover MD 05/30/23 1159 Signed By: <Electronically signed by Silvestre Grover MD> 05/30/23 1201 [facility] Work Phone: 1(476) 345-966210-09-2023 Progress note Author Silvestre Grover [facility] May 29, 2023 1:20pm Note Date/Time May 29, 2023 11 :42am [facility] [address] [place] [address] Physiatry(Rehab) Progress Note Signed Patient: Taurus Garcia MR#: [id number] : 1945 Acct:[id number] Age/Sex: 77 / M Adm Date: 3 Loc: Room: [address] [place] [address] Type: ADM IN Attending Dr: Silvestre Grover [...] due to MG crisis. Patient presented to [facility] on 05/11/2023 with complaints of worseninggeneralized weakness over the course of several days. He was found to be mildlyhypoxic. Also complaining of urinary symptoms. Initially admitted to [facility] for observation however developed worsening respiratory status with increased secretions and inability to protect own airway and was subsequently intubated and transferred to [facility] for neurology services. Patient received [...] mg 05/21/23 14:25 Bisacodyl 10 Mg Supp.Rect [place]Y 05/20/24 14:24 DAILY PRN Constipation Docusate Sodium 100 mg 05/21/23 14:25 Docusate 100 Mg Capsule PO 05/20/24 14:24 BID PRN Constipation Docusate Sodium 283 mg 05/21/23 14:25 Docusate Enema 283 Mg/5 Ml Enema [place] 05/20/24 14:24 DAILY PRN Constipation Fish Oil 1,000 mg 05/21/23 21:00 05/29/23 08:28 [place]-3/Fish Oil 1,000 Mg Capsule PO 05/20/24 20:59 [...] 08:59 10 mg DAILY DORI Administration Pyridostigmine [place] 60 mg 05/21/23 18:00 05/29/23 08:29 Pyridostigmine [place] 60 Mg Tablet PO 05/20/24 17:59 [...] secondary to myasthenic crisis. Initially admitted to [facility] later transferred to [facility] for neurology services. Had to be intubated [...] equipment to enhance the patient's a functional denominational Ensure adequate nutrition and hydration Sleep: No concerns. Pain: Continue current regimen Discharge planning: Hopefully home with his in 3 weeks. I spent greater than 15 minutes for services, including [id number]-[id number] encounter with the patient, discussion of the case, plan of care, and exam; and efagnsh-cx-ztrk activities, such as reviewing pertinent java developer consultant documentation, recent therapy notes, laboratory and radiology studies, and discussion of case with care team including physician, nursing, foster care case manager, and therapists. More than 50 [...] Allied health note review, nursing note review, java developer consultant note review, discussion with nursing and case management, and more than 50% of my time was spent on counseling and coordination of care, time spent 25 minutes Patient was personally seen by me, Dr. Grover, on the day of encounter, reviewed the history and the relevant portions of the chart, including current orders, allied health and java developer consultant notes, labs/imaging and performed garcia elements of exam and I formulated the plan of care and facilitated the medical decision making. Discontinue smith as mobility improves. Making good functional progress. Documented By: Antonia Grier APRN 05/29/23 1 133 Signed By: <Electronically signed by ZACH Grier> 05/29/23 1142 <Electronically signed by Silvestre Grover MD> 05/29/23 1320 [facility] Work Phone: 1(802) 135-418010-06-2023 Progress note Author Silvestre Grover [facility] May 26, 2023 3:42pm Note Date/Time May 25, 2023 11 :38am [facility] [address] [place] [address] Physiatry(Rehab) Progress Note Signed Patient: Taurus Garcia MR#: [id number] : 1945 Acct:[id number] Age/Sex: 77 / M Adm Date: 3 Loc: Room: [address] [place] [address] Type: ADM IN Attending Dr: Silvestre Grover [...] due to MG crisis. Patient presented to [facility] on 05/11/2023 with complaints of worseninggeneralized weakness over the course of several days. He was found to be mildlyhypoxic. Also complaining of urinary symptoms. Initially admitted to [facility] for observation however developed worsening respiratory status with increased secretions and inability to protect own airway and was subsequently intubated and transferred to [facility] for neurology services. Patient received [...] affect appropriate. Normal speech. Objective <Antonia Grier, MEDICAL STAFF SPECIALIST - Last Filed: 05/25/23 11:50> Labs [...] mg 05/21/23 14:25 Bisacodyl 10 Mg Supp.Rect [place]Y 05/20/24 14:24 DAILY PRN Constipation Docusate Sodium 100 mg 05/21/23 14:25 Docusate 100 Mg Capsule PO 05/20/24 14:24 BID PRN Constipation Docusate Sodium 283 mg 05/21/23 14:25 Docusate Enema 283 Mg/5 Ml Enema [place] 05/20/24 14:24 DAILY PRN Constipation Fish Oil 1,000 mg 05/21/23 21:00 05/25/23 09:34 [place]-3/Fish Oil 1,000 Mg Capsule PO 05/20/24 20:59 [...] 08:59 10 mg DAILY DORI Administration Pyridostigmine [place] 60 mg 05/21/23 18:00 05/25/23 09:27 Pyridostigmine [place] 60 Mg Tablet PO 05/20/24 17:59 60 mg QID DORI Administration Sennosides 2 tab 05/22/23 12:00 Sennosides 8.6 Mg Tablet PO 05/21/24 11:59 DAILY@12 PRN If no BM in 2 days Triamterene/Hydrochlorothiazide 1 tab 05/22/23 09:00 05/25/23 09:27 Triamterene/Hctz 37.5-25mg 1 Tab Tablet PO 05/21/24 08:59 1 tab DAILY DORI Administration Assessment/Plan <Antonia Grier, MEDICAL STAFF SPECIALIST - Last Filed: 05/25/23 11:50> Assessment/Plan (1) [...] secondary to myasthenic crisis. Initially admitted to [facility] later transferred to [facility] for neurology services. Had to be intubated [...] equipment to enhance the patient's a functional denominational Ensure adequate nutrition and hydration Sleep: No concerns. Pain: Continue current regimen Discharge planning: Hopefully home with his in 3 weeks. I spent greater than 15 minutes for services, including pgnv-jv-grmw encounter with the patient, discussion of the case, plan of care, and exam; and djmgeqi-st-ppqu activities, such as reviewing pertinent java developer consultant documentation, recent therapy notes, laboratory and radiology studies, and discussion of case with care team including physician, nursing, foster care case manager, and therapists. More than 50 [...] Allied health note review, nursing note review, java developer consultant note review, discussion with nursing and case management, and more than 50% of my time was spent on counseling and coordination of care, time spent 25 minutes Patient was personally seen by me, Dr. Grover, on the day of encounter, reviewed the history and the relevant portions of the chart, including current orders, allied health and java developer consultant notes, labs/imaging and performed garcia elements of exam and I formulated the plan of care and facilitated the medical decision making. Documented By: Antonia Grier APRN 05/25/23 1 136 Signed By: <Electronically signed by ZACH Grier> 05/25/23 1150 <Electronically signed by Silvestre Grover MD> 05/26/23 1542 [facility] Work Phone: 1(353) 458-504610-05-2023 Progress note Author Silvestre Grover [facility] May 25, 2023 8:34am Note Date/Time May 24, 2023 1: 11pm [facility] [address] [place] [address] Physiatry(Rehab) Progress Note Signed Patient: Taurus Garcia MR#: [id number] : 1945 Acct:[id number] Age/Sex: 77 / M Adm Date: 3 Loc: Room: [address] [place] [address] Type: ADM IN Attending Dr: Silvestre Grover MD Copies to: ~ Date of Service: 05/24/2023 Subjective Subjective Narrative: Mr. Garcia is a 77 year old male with past medical history of myasthenia gravis,hypertension, A-fib anticoagulated with Eliquis, PE, CKD, obstructive sleep apnea on BiPAP, who presents to acute inpatient rehab with functional impairments due to MG crisis. Patient presented to [facility] on 05/11/2023 with complaints of worseninggeneralized weakness over the course of several days. He was found to be mildlyhypoxic. Also complaining of urinary symptoms. Initially admitted to [facility] for observation however developed worsening respiratory status with increased secretions and inability to protect own airway and was subsequently intubated and transferred to [facility] for neurology services. Patient received [...] mg 05/21/23 14:25 Bisacodyl 10 Mg Supp.Rect [place]Y 05/20/24 14:24 DAILY PRN Constipation Docusate Sodium 100 mg 05/21/23 14:25 Docusate 100 Mg Capsule PO 05/20/24 14:24 BID PRN Constipation Docusate Sodium 283 mg 05/21/23 14:25 Docusate Enema 283 Mg/5 Ml Enema [place] 05/20/24 14:24 DAILY PRN Constipation Fish Oil 1,000 mg 05/21/23 21:00 05/24/23 08:33 [place]-3/Fish Oil 1,000 Mg Capsule PO 05/20/24 20:59 [...] 08:59 10 mg DAILY DORI Administration Pyridostigmine [place] 60 mg 05/21/23 18:00 05/24/23 08:33 Pyridostigmine [place] 60 Mg Tablet PO 05/20/24 17:59 [...] secondary to myasthenic crisis. Initially admitted to [facility] later transferred to [facility] for neurology services. Had to be intubated [...] equipment to enhance the patient's a functional denominational Ensure adequate nutrition and hydration Sleep: No concerns. Pain: Continue current regimen Discharge planning: Hopefully home with his in 3 weeks. Plan: I completed a substantive portion of this encounter, the medical decision making portion of this note in its entirety, including Allied health note review, nursing note review, java developer consultant note review, discussion with nursing and case management, and more than 50% of my time was spent on counseling and coordination of care, time spent 20 minutes Patient was personally seen by me, Dr. Grover, on the day of encounter, reviewed the history and the relevant portions of the chart, including current orders, allied health and java developer consultant notes, labs/imaging and performed garcia elements of exam and I formulated the plan of care and facilitated the medical decision making. Documented By: Silvestre Grover MD 05/24/23 1310 Signed By: <Electronically signed by Silvestre Grover MD> 05/25/23 5159 [facility] Work Phone: 1([phone] 417-455710-03-2023 Consult note Author Jarret Garza [facility] May 23, 2023 2:28pm Note Date/Time May 22, 2023 4: 54pm [facility] [address] [place] [address] Hospitalist Consult Note Signed Patient: Taurus Garcia MR#: [id number] : 1945 Acct:[id number] Age/Sex: 77 / M Adm Date: 3 Loc: Room: 1C2590-3 Type: ADM IN Attending Dr: Silvestre Grover [...] CKD, PE(On Eliquis) who was admitted to [facility] 9/19 for generalized weakness and was also found to be mildly hypoxic. He was intubated there then transferred to [facility] for evaluation and treatment of suspected acute [...] mg PO DAILY 12/27/17 [History Confirmed 05/21/23] okiltcur-afc-eyanm acid 0.4 mg-lycopene 300 mcg-lutein 250 mcg [...] mg 05/21/23 14:25 Bisacodyl 10 Mg Supp.Rect [place] 05/20/24 14:24 DAILY PRN Constipation Docusate Sodium 100 mg 05/21/23 14:25 Docusate 100 Mg Capsule PO 05/20/24 14:24 BID PRN Constipation Docusate Sodium 283 mg 05/21/23 14:25 Docusate Enema 283 Mg/5 Ml Enema [place] 05/20/24 14:24 DAILY PRN Constipation Fish Oil 1,000 mg 05/21/23 21:00 05/22/23 08:58 [place]-3/Fish Oil 1,000 Mg Capsule PO 05/20/24 20:59 [...] 08:59 10 mg DAILY DORI Administration Pyridostigmine [place] 60 mg 05/21/23 18:00 05/22/23 14:40 Pyridostigmine [place] 60 Mg Tablet PO 05/20/24 17:59 [...] Creatinine Clear 100.28, Sodium 141, Potassium 3.7, Jgygfllm521, Carbon Dioxide 30.8, Anion Gap 7.9, BUN [...] % (Auto) 63.1, Lymph % (Auto) 20.4, [place] % (Auto) 10.8, Eos % (Auto) 5.4, Baso % (Auto) 0.3, Nucleat RBC Rel Count 0.1, Neut # (Auto) 4.6, Lymph # (Auto) 1.5, [place] # (Auto) 0.8, Eos # (Auto) 0.4, [...] signed by Jarret Garza MD> 05/23/23 1428 [facility] Work Phone: 1([phone] 375-554310-02-2023 History and physical note Author Silvestre Grover [facility] May 22, 2023 3:50pm Note Date/Time May 22, 2023 10 :42am [facility] [address] [place] [address] Physiatry (Rehab) H&P Signed Patient: Taurus Garcia MR#: [id number] : 1945 Acct:[id number] Age/Sex: 77 / M Adm Date: 3 Loc: Room: [address] [place] [address] Type: ADM IN Attending Dr: Silvestre Grover [...] due to MG crisis. Patient presented to [facility] on 05/11/2023 with complaints of worseninggeneralized weakness over the course of several days. He was found to be mildlyhypoxic. Also complaining of urinary symptoms. Initially admitted to [facility] for observation however developed worsening respiratory status with increased secretions and inability to protect own airway and was subsequently intubated and transferred to [facility] for neurology services. Patient received [...] mg PO DAILY 12/27/17 [History Confirmed 05/21/23] lgypnzkf-ier-bxekj acid 0.4 mg-lycopene 300 mcg-lutein 250 mcg [...] 20 Mg Tablet) 20 mg PO HS [facility] Stop: 05/20/24 21:59 Last Admin: 05/21/23 21:57 Dose: 20 mg Bisacodyl (Bisacodyl 10 Mg Supp.Rect) 10 mg W[place] DAILY PRN PRN Reason: Constipation Stop: 05/20/24 14:24 Docusate Sodium (Docusate 100 Mg Capsule) 100 mg PO BID PRN PRN Reason: Constipation Stop: 05/20/24 14:24 Docusate Sodium (Docusate Enema 283 Mg/5 Ml Enema) 283 mg W[place] DAILY PRN PRN Reason: Constipation Stop: 05/20/24 14:24 Fish Oil ([place]-3/Fish Oil 1,000 Mg Capsule) 1,000 mg PO [...] Admin: 05/22/23 08:58 Dose: 10 mg Pyridostigmine [place] (Pyridostigmine [place] 60 Mg Tablet) 60 mg PO QID [facility] Stop: 05/20/24 17:59 Last Admin: 05/22/23 08:57 Dose: 60 mg Sennosides (Sennosides 8.6 Mg Tablet) 2 tab PO DAILY@12 PRN PRN Reason: If no BM in 2 days Stop: 05/21/24 11:59 Triamterene/Hydrochlorothiazide (Triamterene/Hctz 37.5-25mg 1 Tab Tablet) 1 tabPO DAILY [facility] Stop: 05/21/24 08:59 Last Admin: 05/22/23 08:57 [...] % (Auto) 63.1 Lymph % (Auto) 20.4 [place] % (Auto) 10.8 Eos % (Auto) 5.4 Baso % (Auto) 0.3 Nucleat RBC Rel Count 0.1 Neut # (Auto) 4.6 Lymph # (Auto) 1.5 [place] # (Auto) 0.8 Eos # (Auto) 0.4 [...] mobility Anticipated interventions: Physician management, PT, OT, STRIP PICKER, , Dietitian, RehabNursing, Case management 2. Therapy Functional Outcome/Goal: Anticipate standby assist transfers Anticipated interventions: Physician management, PT, OT, STRIP PICKER, Case management, Dietitian, Rehab Nursing 3. Therapy Functional Outcome/Goal: Anticipate min assist ambulation Anticipated interventions: Physician management, PT, OT, STRIP PICKER Case management, Dietitian, Rehab Nursing 4.Therapy Functional Outcome/Goal: Anticipate min assist self-care Anticipated interventions: Physician management, PT, OT, STRIP PICKER, Case management, Dietitian, Rehab Nursing 5.Therapy Functional Outcome/Goal: Anticipate min assist swallowing. Anticipated interventions: Physician management, PT, OT, STRIP PICKER, Case management, Dietitian, Rehab Nursing Required Therapy [...] additional therapy on as needed basis. Comments: STRIP PICKER to evaluate and treat patient?s cognition, language and communication skills, assess swallow function. Other: Dietitian, Rehab nursing, Wound, P&O, Neuropsychology as needed RATIONALE FOR IRF ADMISSION: Patient has both medical and functional complexities that require 24 hour daily monitoring and intervention from Mechanic Assistant as well as other consulting physicians including internal medicine as well as 24 hour daily supervisor finishing department nursing - for medical safe / optimal management. Patient requires interdisciplinary therapy team rehabilitation care including OT, PT, STRIP PICKER, SW, Psychology, Rehab Nursing, requires and can [...] impairments secondaryto myasthenic crisis. Initially admitted to [facility] later transferred[facility] for neurology services. Had to be intubated [...] equipment to enhance the patient's a functional denominational Ensure adequate nutrition and hydration Sleep: No concerns. Pain: Continue current regimen Discharge planning: Hopefully home with his in 10 to 14 days. I spent greater than 45 minutes for services, including jdcm-ng-lldv encounter with the patient, discussion of the case, plan of care, and exam; and pjppdgp-lu-ezxa activities, such as reviewing pertinent java developer consultant documentation, recent therapy notes, laboratory and radiology studies, and discussion of case with care team including physician, nursing, foster care case manager, and therapists. More than 50 [...] Allied health note review, nursing note review, java developer consultant note review, discussion with nursing and case management, and more than 50% of my time was spent on counseling and coordination of care, time spent 70 minutes Patient was personally seen by me, Dr. Grover, on the day of encounter, reviewed the history and the relevant portions of the chart, including current orders, allied health and java developer consultant notes, labs/imaging and performed garcia elements of exam and I formulated the plan of care and facilitated the medical decision making. Documented By: Antonia Grier APRN 05/22/23 1 040 Signed By: <Electronically signed by ZACH Grier> 05/22/23 1148 <Electronically signed by Silvestre Grover MD> 05/22/23 1550 [facility] Work Phone: 1(157) 591-986309-30-2023 Progress note Author Suraj Razo [facility] May 20, 2023 8:14am Note Date/Time May 20, 2023 8:10am [facility] [address] [place] [address] Hospitalist Progress Note Signed Patient: Taurus Garcia MR#: [id number] : 1945 Acct:[id number] Age/Sex: 77 / M Adm Date: 3 Loc: 4P Room: [address] [place] [address] Type: ADM IN Attending Dr: Suraj Razo MD Copies to: ~ Date of Service: 05/20/2023 Subjective Subjective Narrative: Assessment And Plan 77M with PMH of HTN, HLD, Myasthenia Gravis (Dx 2017), CKD, PE(On Eliquis) who was admitted to [facility] 05/09 for generalized weakness. He was [...] 08:59 10 mg DAILY DORI Administration Pyridostigmine [place] 60 mg 05/18/23 14:00 05/19/23 21:30 Pyridostigmine [place] 60 Mg Tablet PO 05/17/24 13:59 60 mg QID DORI Administration A&P - Hospitalist Assessment/Plan (1) Acute exacerbation of myasthenia gravis: (2) Acute respiratory failure with hypoxia: (3) CKD (chronic kidney disease) stage 3, GFR 30-59 ml/min: Plan . Documented By: Suraj Razo MD 05/20/23808 Signed By: <Electronically signed by Suraj Razo MD> 05/20/2314 [facility] Work Phone: [phone]) 827-279409-29-2023 Progress note Author Suraj Razo [facility] May 19, 2023 1:42pm Note Date/Time May 19, 2023 1:42pm [facility] [address] [place] [address] Hospitalist Progress Note Signed Patient: Taurus Garcia MR#: [id number] : 1945 Acct:[id number] Age/Sex: 77 / M Adm Date: 3 Loc: Room: [address] [place] [address] Type: ADM IN Attending Dr: Suraj Razo MD Copies to: ~ Date of Service: 05/19/2023 Subjective Subjective Narrative: Assessment And Plan 77M with PMH of HTN, HLD, Myasthenia Gravis (Dx 2017), CKD, PE(On Eliquis) who was admitted to [facility] 05/09 for generalized weakness. He was [...] 05/19/23 12:00 05/19/23 12:00 05/19/23 12:00 05/19/23 12:05/19/23 12:05/19/23 12:05/19/23 12:00 FiO2 4 05/15/23 18:00 Narrative: General [...] 08:59 10 mg DAILY DORI Administration Pyridostigmine [place] 60 mg 05/18/23 14:00 05/19/23 08:28 Pyridostigmine [place] 60 Mg Tablet PO 05/17/24 13:59 60 mg QID DORI Administration A&P - Hospitalist Assessment/Plan (1) Acute exacerbation of myasthenia gravis: (2) Acute respiratory failure with hypoxia: (3) CKD (chronic kidney disease) stage 3, GFR 30-59 ml/min: Plan . Documented By: Suraj Razo MD 05/19/231339 Signed By: <Electronically signed by Suraj Razo MD> 05/19/23 1342 [facility] Work Phone: [phone]) [phone] Progress note Author Stanley Burt [facility] May 19, 2023 11:15am Note Date/Time May 19, 2023 8:43am [facility] [address] [place] [address] Pulmonology Progress Note Signed Patient: Taurus Garcia MR#: [id number] : 1945 Acct:[id number] Age/Sex: 77 / M Adm Date: 3 Loc: Room: [address] [place] [address] Type: ADM IN Attending Dr: Suraj Razo [...] Days 05/16/23 10:32 Urine Culture - Final Urine Smith No Growth 2 Days Assessment/Plan Assessment/Plan [...] signed by MD Stanley Burt> 05/19/23 1115 [facility] Work Phone: [phone]) [phone] Progress note Author Silvestre Grover [facility] May 19, 2023 10:51am Note Date/Time May 19, 2023 10:03am [facility] [address] [place] [address] Physiatry(Rehab) Progress Note Signed Patient: Taurus Garcia MR#: [id number] : 1945 Acct:[id number] Age/Sex: 77 / M Adm Date: 3 Loc: Room: [address] [place] [address] Type: ADM IN Attending Dr: Suraj Razo [...] to feel generally weak, he presented to [facility] and was subsequently intubated and transferred [...] % (Auto) 53.7 Lymph % (Auto) 22.1 [place] % (Auto) 10.0 Eos % (Auto) 13.8 Baso % (Auto) 0.4 Nucleat RBC Rel Count 0.2 Neut # (Auto) 2.7 Lymph # (Auto) 1.1 [place] # (Auto) 0.5 Eos # (Auto) 0.7 [...] 08:59 10 mg DAILY DORI Administration Pyridostigmine [place] 60 mg 05/18/23 14:00 05/19/23 08:28 Pyridostigmine [place] 60 Mg Tablet PO 05/17/24 13:59 [...] for myasthenic crisis, intubated on admission to [facility], just extubated 05/15, being evaluated [...] Allied health note review, nursing note review, java developer consultant note review, discussion with nursing and case management, and more than 50% of my time was spent on counseling and coordination of care, time spent 30 minutes Patient was personally seen by me, Dr. Grover, on the day of encounter, reviewed the history and the relevant portions of the chart, including current orders, allied health and java developer consultant notes, labs/imaging and performed garcia elements of exam and I formulated the plan of care and facilitated the medical decision making. Documented By: Silvestre Grover MD 05/19/23 1003 Signed By: <Electronically signed by Silvestre Grover MD> 05/19/23 1051 [facility] Work Phone: [phone]) 211-163109-28-2023 Consult note Author Pat Hoover [facility] May 18, 2023 6:00pm Note Date/Time May 18, 2023 6:00pm [facility] [address] [place] [address] Cardiology Consult Note Signed Patient: Taurus Garcia MR#: [id number] : 1945 Acct:[id number] Age/Sex: 77 / M Adm Date: 3 Loc: Room: [address] [place] [address] Type: ADM IN Attending Dr: Suraj Razo [...] mg PO DAILY 12/27/17 [History Confirmed 05/10/23] kklzhcwh-ore-zafzu acid 0.4 mg-lycopene 300 mcg-lutein 250 mcg [...] x10E3/uL Lymph # (Auto) 1.0 (1.00-4.8) x10E3/uL [place] # (Auto) 0.4 (0.0-0.8) x10E3/uL Eos # (Auto) 0.8 H (0.0-0.45) x10E3/uL Baso # (Auto) 0.0 (0.0-0.2) x10E3/uL Intake and Output 05/18/23 05/18/23 05/18/23 07:59 15:59 23:59 Intake Total 60 / 710 650 / 710 Output Total 2074 Balance -415 / -1365 -950 / -1365 Intake: IV 250 / 250 Amiodarone 450 mg In Dextrose 5 250 / 250 % in Water [place] 241 ml @ 0.5 MG/MIN 16.667 mls/hr IV .Q15H DORI Rx#:[id number] Oral 60 / 460 400 / 460 Output: Urine Amount (Catheter) 2074 Urethral (Simth) 2074 Other: # Incontinent Bowel Movements 2 [...] signed by Pat Hoover DO> 05/18/23 1800 [facility] Work Phone: 1([phone]) 281-212409-28-2023 Progress note Author Stanley Burt [facility] May 18, 2023 4:48pm Note Date/Time May 18, 2023 8:38am [facility] [address] [place] [address] Pulmonology Progress Note Signed Patient: Taurus Garcia MR#: [id number] : 1945 Acct:[id number] Age/Sex: 77 / M Adm Date: 3 Loc: Room: [address] [place] [address] Type: ADM IN Attending Dr: Suraj Razo [...] signed by MD Stanley Burt> 05/18/23 1648 [facility] Work Phone: [phone] Progress note Author Suraj Razo [facility] May 18, 2023 12:58pm Note Date/Time May 18, 2023 12:55pm [facility] [address] [place] [address] Hospitalist Progress Note Signed Patient: Taurus Garcia MR#: [id number] : 1945 Acct:[id number] Age/Sex: 77 / M Adm Date: 3 Loc: Room: 9X5711-5 Type: ADM IN Attending Dr: Suraj Razo MD Copies to: ~ Date of Service: 05/18/2023 Subjective Subjective Narrative: Assessment And Plan 77M with PMH of HTN, HLD, Myasthenia Gravis (Dx 2016), CKD, PE(On Eliquis) who was admitted to [facility] 05/09 for generalized weakness. He was [...] 96 Nasal Cannula 2 05/18/23 08:00 05/18/23 10:05/18/23 10:05/18/23 10:00 05/18/23 10:05/18/23 10:05/18/23 10:00 FiO2 4 05/15/23 18:00 Narrative: General [...] 08:59 10 mg DAILY DORI Administration Pyridostigmine [place] 60 mg 05/18/23 14:00 Pyridostigmine [place] 60 Mg Tablet PO 05/17/24 13:59 QID DORI A&P - Hospitalist Assessment/Plan (1) Acute exacerbation of myasthenia gravis: (2) Acute respiratory failure with hypoxia: (3) CKD (chronic kidney disease) stage 3, GFR 30-59 ml/min: Plan . Documented By: Suraj Razo MD 05/18/231252 Signed By: <Electronically signed by Suraj Razo MD> 05/18/23 1251 [facility] Work Phone: [phone]) [phone] Progress note Author Jamel Packer [facility] May 17, 2023 2:05pm Note Date/Time May 17, 2023 2:05pm [facility] [address] [place] [address] Neurology Progress Note Signed Patient: Taurus Garcia MR#: [id number] : 1945 Acct:[id number] Age/Sex: 77 / M Adm Date: 3 Loc: Room: [address] [place] [address] Type: ADM IN Attending Dr: Suraj Razo [...] Therapy Recommendations: OT Recommendations OT Recommended Discharge [facility] Facility,[facility] Location OT Recommended Services at Physical Therapy,Occupational Therapy,Speech Discharge Therapy,13/03 Supervision PT Recommendations PT Recommended Discharge Jail Facility,LTACH Location PT Recommended Services at Physical Therapy,Occupational Therapy Discharge ST Recommendations Level of Supervision 1:1 Feeding Supervision Liquid Consistency [place]-Thick Liquids Recommendation Solid Consistency Pureed Solids Recommendations [...] <Electronically signed by Jamel Packer DO> 05/17/23 [facility] Work Phone: [phone]) [phone] Progress note Author Stanley Burt [facility] May 17, 2023 12:50pm Note Date/Time May 17, 2023 12:50pm [facility] [address] [place] [address] Pulmonology Progress Note Signed Patient: Taurus Garcia MR#: [id number] : 1945 Acct:[id number] Age/Sex: 77 / M Adm Date: 3 Loc: Room: [address] [place] [address] Type: ADM IN Attending Dr: Suraj Razo [...] -390 Weight 154.2 kg Labs 05/17/23 04:19 09/27/23 04:19 Microbiology Micro: Microbiology 05/12/23 07:34 Blood [...] ICU. Documented By: Stanley Burt MD 3 7888 Signed By: <Electronically signed by MD Stanley Burt> 05/17/23 1830 [facility] Work Phone: [phone] Progress note Author Suraj Razo [facility] May 17, 2023 11:57am Note Date/Time May 17, 2023 11:48am [facility] [address] [place] [address] Hospitalist Progress Note Signed Patient: Taurus Garcia MR#: [id number] : 1945 Acct:[id number] Age/Sex: 77 / M Adm Date: 3 Loc: Room: [address] [place] [address] Type: ADM IN Attending Dr: Suraj Razo MD Copies to: ~ Date of Service: 05/17/2023 Subjective Subjective Narrative: Assessment And Plan 77M with PMH of HTN, HLD, Myasthenia Gravis (Dx 2016), CKD, PE(On Eliquis) who was admitted to [facility] 05/09 for generalized weakness. He was [...] 08:59 10 mg DAILY DORI Administration Pyridostigmine [place] 60 mg 05/15/23 22:00 05/17/23 08:52 Pyridostigmine [place] 60 Mg Tablet NG-TUBE 05/14/24 21:59 60 mg TID DORI Administration A&P - Hospitalist Assessment/Plan (1) Acute exacerbation of myasthenia gravis: (2) Acute respiratory failure with hypoxia: (3) CKD (chronic kidney disease) stage 3, GFR 30-59 ml/min: Plan . Documented By: Suraj Razo MD 05/17/23 1146 Signed By: <Electronically signed by Suraj Razo MD> 05/17/23 1159 [facility] Work Phone: [phone]) [phone] Progress note Author Silvestre Grover [facility] May 17, 2023 10:48am Note Date/Time May 17, 2023 10:48am [facility] [address] [place] [address] Physiatry(Rehab) Progress Note Signed Patient: Taurus Garcia MR#: [id number] : 1945 Acct:[id number] Age/Sex: 77 / M Adm Date: 3 Loc: Room: [address] [place] [address] Type: ADM IN Attending Dr: Suraj Razo [...] to feel generally weak, he presented to [facility] and was subsequently intubated and transferred [...] MPV Neut % (Auto) Lymph % (Auto) [place] % (Auto) Eos % (Auto) Baso % (Auto) Nucleat RBC Rel Count Neut # (Auto) Lymph # (Auto) [place] # (Auto) Eos # (Auto) Baso # [...] Color Urine Appearance Urine pH Ur Specific [place] Urine Protein Urine Glucose (UA) Urine Ketones Urine Occult Blood Urine Nitrite Urine Bilirubin Urine Urobilinogen Ur Leukocyte Esterase Urine RBC Urine WBC Ur Squamous Epith Cells Calcium Oxalate Crystal Urine Bacteria Hyaline Casts Urine Yeast 05/16/23 05/16/23 05/16/23 10:32 13:20 16:37 Corrected WBC Uncorrected WBC Count RBC Hgb Hct MCV MCH MCHC RDW Plt Count MPV Neut % (Auto) Lymph % (Auto) [place] % (Auto) Eos % (Auto) Baso % (Auto) Nucleat RBC Rel Count Neut # (Auto) Lymph # (Auto) [place] # (Auto) Eos # (Auto) Baso # (Auto) PHA Creatinine Clear Sodium Potassium Chloride Carbon Dioxide Anion Gap BUN Creatinine Est GFR (CKD-EPI) Glucose POC Glucose 165 POC Glucose Comment Glu2: cleaned meter Calcium Magnesium Total Creatine Kinase 175 Troponin I High Sens TSH 3rd Generation Urine Color Yellow Urine Appearance Clear Urine pH 5.5 Ur Specific [place] 1.026 Urine Protein 30 H Urine Glucose [...] % (Auto) 72.4 Lymph % (Auto) 12.6 [place] % (Auto) 7.6 Eos % (Auto) 7.1 Baso % (Auto) 0.3 Nucleat RBC Rel Count 0.5 Neut # (Auto) 3.2 Lymph # (Auto) 0.6 L [place] # (Auto) 0.3 Eos # (Auto) 0.3 Baso # (Auto) 0.0 PHA Creatinine Clear Sodium Potassium Chloride Carbon Dioxide Anion Gap BUN Creatinine Est GFR (CKD-EPI) Glucose POC Glucose 146 107 POC Glucose Comment Glu2: cleaned meter Calcium Magnesium Total Creatine Kinase Troponin I High Sens TSH 3rd Generation Urine Color Urine Appearance Urine pH Ur Specific [place] Urine Protein Urine Glucose (UA) Urine Ketones Urine Occult Blood Urine Nitrite Urine Bilirubin Urine Urobilinogen Ur Leukocyte Esterase Urine RBC Urine WBC Ur Squamous Epith Cells Calcium Oxalate Crystal Urine Bacteria Hyaline Casts Urine Yeast 05/17/23 04:19 Corrected WBC Uncorrected WBC Count RBC Hgb Hct MCV MCH MCHC RDW Plt Count MPV Neut % (Auto) Lymph % (Auto) [place] % (Auto) Eos % (Auto) Baso % (Auto) Nucleat RBC Rel Count Neut # (Auto) Lymph # (Auto) [place] # (Auto) Eos # (Auto) Baso # [...] Color Urine Appearance Urine pH Ur Specific [place] Urine Protein Urine Glucose (UA) Urine Ketones [...] 08:59 10 mg DAILY DORI Administration Pyridostigmine [place] 60 mg 05/15/23 22:00 05/17/23 08:52 Pyridostigmine [place] 60 Mg Tablet NG-TUBE 05/14/24 21:59 [...] for myasthenic crisis, intubated on admission to [facility], just extubated 05/15, being evaluated for possible IRF placement. -Discussed with pulmonology AIR SAMPLER. -At this time remains not medically ready for transition to IRF and cannot tolerate 3 hours of therapy daily. Dependent for all mobility. Limited tolerance. -Hopefully can progress over next several days and be able to tolerate IRF level therapy when medically stable for discharge, family prefers [facility] [place] as backup plan if LTACH not required. -Reviewed Neurology note, does not appear would require transfer to tertiary center at this time. -Will follow daily for updated progress. Plan: I completed a substantive portion of this encounter, the medical decision making portion of this note in its entirety, including Allied health note review, nursing note review, java developer consultant note review, discussion with nursing and case management, and more than 50% of my time was spent on counseling and coordination of care, time spent 25 minutes Patient was personally seen by me, Dr. Grover, on the day of encounter, reviewed the history and the relevant portions of the chart, including current orders, allied health and java developer consultant notes, labs/imaging and performed garcia elements of exam and I formulated the plan of care and facilitated the medical decision making. Documented By: Silvestre Grover MD 05/17/231043 Signed By: <Electronically signed by Silvestre Grover MD> 05/17/231047 [facility] Work Phone: 1([phone]) 595-541209-26-2023 Consult note Author Silvestre Grover [facility] May 16, 2023 3:19pm Note Date/Time May 16, 2023 2:46pm [facility] [address] [place] [address] Physiatry (Rehab) Consult Note Signed Patient: Taurus Garcia MR#: [id number] : 1945 Acct:[id number] Age/Sex: 77 / M Adm Date: 3 Loc: Room: [address] [place] [address] Type: ADM IN Attending Dr: Suraj Razo [...] to feel generally weak, he presented to [facility] and was subsequently intubated and transferred [...] of motion. Eyes closed most of session. STRIP PICKER notes reviewed, cleared for modified diet. Review [...] mg PO DAILY 12/27/17 [History Confirmed 05/10/23] lutbpayq-qqy-srxgn acid 0.4 mg-lycopene 300 mcg-lutein 250 mcg [...] MPV Neut % (Auto) Lymph % (Auto) [place] % (Auto) Eos % (Auto) Baso % (Auto) Nucleat RBC Rel Count Neut # (Auto) Lymph # (Auto) [place] # (Auto) Eos # (Auto) Baso # (Auto) Potassium 4.0 POC Glucose 152 146 Magnesium 1.9 Urine Color Urine Appearance Urine pH Ur Specific [place] Urine Protein Urine Glucose (UA) Urine Ketones [...] % (Auto) 82.7 Lymph % (Auto) 7.8 [place] % (Auto) 5.0 Eos % (Auto) 4.2 Baso % (Auto) 0.3 Nucleat RBC Rel Count 0.5 Neut # (Auto) 4.4 Lymph # (Auto) 0.4 L [place] # (Auto) 0.3 Eos # (Auto) 0.2 Baso # (Auto) 0.0 Potassium POC Glucose 100 Magnesium Urine Color Yellow Urine Appearance Clear Urine pH 5.5 Ur Specific [place] 1.026 Urine Protein 30 H Urine Glucose [...] for myasthenic crisis, intubated on admission to [facility], just extubated 05/15, being evaluated [...] when medically stable for discharge, family prefers [place] [place] as backup plan if LTACH not required. -Reviewed Neurology note, does not appear would require transfer to tertiary center at this time. -Will follow daily for updated progress. Plan: I completed a substantive portion of this encounter, the medical decision makingportion of this note in its entirety, including Allied health note review, nursing note review, java developer consultant note review, discussion with nursing and case management, and more than 50% of my time was spent on counseling and coordination of care, time spent 65 minutes Patient was personally seen by me, Dr. Grover, on the day of encounter, reviewed the history and the relevant portions of the chart, including current orders, allied health and java developer consultant notes, labs/imaging and performed garcia elements of exam and I formulated the plan of care and facilitated the medical decision making. Documented By: Silvestre Grover MD 05/16/23 1208 Signed By: <Electronically signed by Silvestre Grover MD> 05/16/23 1519 [facility] Work Phone: 1([phone]) [phone] Progress note Author Jamel Packer [facility] May 16, 2023 2:29pm Note Date/Time May 16, 2023 2:29pm [facility] [address] [place] [address] Neurology Progress Note Signed Patient: Taurus Garcia MR#: [id number] : 1945 Acct:[id number] Age/Sex: 77 / M Adm Date: 3 Loc: Room: [address] [place] [address] Type: ADM IN Attending Dr: Suraj Razo [...] of Supervision 1:1 Feeding Supervision Liquid Consistency [place]-Thick Liquids Recommendation Solid Consistency Pureed Solids Recommendations [...] Status: Acute Documented By: Jamel Packer DO 05/16/231418 Signed By: <Electronically signed by Jamel Packer DO> 05/16/23 1423 [facility] Work Phone: 1(415) 213-513009-26-2023 Progress note Author Suraj Razo [facility] May 16, 2023 1:53pm Note Date/Time May 16, 2023 1:53pm [facility] [address] [place] [address] Hospitalist Progress Note Signed Patient: Taurus Garcia MR#: [id number] : 1945 Acct:[id number] Age/Sex: 77 / M Adm Date: 3 Loc: Room: [address] [place] [address] Type: ADM IN Attending Dr: Suraj Razo MD Copies to: ~ Date of Service: 05/16/2023 Subjective Subjective Narrative: Assessment And Plan 77M with PMH of HTN, HLD, Myasthenia Gravis (Dx 2017), CKD, PE(On Eliquis) who was admitted to [facility] 05/09 for generalized weakness. He was [...] on Amiodarone infusion Now on sinus rhythm Eliqucynthia Discussed with his at bedside' Discussed with [...] 08:59 60 mg DAILY DORI Administration Pyridostigmine [place] 60 mg 05/15/23 22:00 05/16/23 09:25 Pyridostigmine [place] 60 Mg Tablet NG-TUBE 05/14/24 21:59 [...] . Documented By: Suraj Razo MD 05/16/23 7146 Signed By: <Electronically signed by Suraj Razo MD> 05/16/23 1353 [facility] Work Phone: 1(262) [phone] Progress note Author Stanley Carmel [facility] May 16, 2023 11:27am Note Date/Time May 16, 2023 11:27am [facility] [address] [place] [address] Pulmonology Progress Note Signed Patient: Taurus Garcia MR#: [id number] : 1945 Acct:[id number] Age/Sex: 77 / M Adm Date: 3 Loc: Room: [address] [place] [address] Type: ADM IN Attending Dr: Suraj Razo [...] signed by MD Stanley Burt> 05/16/23 1127 [facility] Work Phone: 1([phone]) 327-862509-25-2023 Progress note Author Jamel Packer [facility] May 15, 2023 1:56pm Note Date/Time May 15, 2023 1:54pm [facility] [address] [place] [address] Neurology Progress Note Signed Patient: Taurus Garcia MR#: [id number] : 1945 Acct:[id number] Age/Sex: 77 / M Adm Date: 3 Loc: Room: [address] [place] [address] Type: ADM IN Attending Dr: Suraj Razo [...] <Electronically signed by Jamel Packer DO> 05/15/23 1773 [facility] Work Phone: 1([phone]) 727-423709-25-2023 Progress note Author Suraj Razo [facility] May 15, 2023 12:28pm Note Date/Time May 15, 2023 12:25pm [facility] [address] [place] [address] Hospitalist Progress Note Signed Patient: Taurus Garcia MR#: [id number] : 1945 Acct:[id number] Age/Sex: 77 / M Adm Date: 3 Loc: Room: [address] [place] [address] Type: ADM IN Attending Dr: Suraj Razo MD Copies to: ~ Date of Service: 05/15/2023 Subjective Subjective Narrative: Assessment And Plan 77M with [facility] of HTN, HLD, Myasthenia Gravis (Dx 2016), CKD, PE(On Eliquis) who was admitted to [facility] 05/09 for generalized weakness. He was [...] 05/10/24 00:22 PROTOCOL PRN Bolus Documentation Pyridostigmine [place] 30 mg 05/14/23 14:00 05/15/23 08:57 Pyridostigmine [place] 60 Mg Tablet NG-TUBE 05/13/24 13:59 [...] signed by Suraj Razo MD> 05/15/23 1228 [facility] Work Phone: 1([phone]) 536-294409-25-2023 Progress note Author Stanley Burt [facility] May 15, 2023 11:32am Note Date/Time May 15, 2023 11:25am [facility] [address] [place] [address] Pulmonology Progress Note Signed Patient: Taurus Garcia MR#: [id number] : 1945 Acct:[id number] Age/Sex: 77 / M Adm Date: 3 Loc: Room: [address] [place] [address] Type: ADM IN Attending Dr: Suraj Razo [...] previous pulmonary embolism who was transferred from [facility] with progressive decompensation likely related to myasthenia [...] signed by MD Stanley Burt> 05/15/23 1132 [facility] Work Phone: 1([phone]) 522-258409-24-2023 Progress note Author Eliezer Newell [facility] May 14, 2023 6:05pm Note Date/Time May 14, 2023 5:59pm [facility] [address] [place] [address] Hospitalist Progress Note Signed Patient: Taurus Garcia MR#: [id number] : 1945 Acct:[id number] Age/Sex: 77 / M Adm Date: 3 Loc: Room: [address] [place] [address] Type: ADM IN Attending Dr: Eliezer Newell MD Copies to: ~ Date of Service: 05/14/2023 Subjective Subjective Narrative: Assessment And Plan 77M with PMH of HTN, HLD, Myasthenia Gravis (Dx 2016), CKD, PE(On Eliquis) who was admitted to [facility] 05/09 for generalized weakness. He was intubated there then transferred for the evaluation and treatment of suspected acute myasthenia gravis exacerbation. Acute Respiratory Failure due to Myasthenia gravis exacerbation remain on MV with low O2 demand The patient required intubation at [facility] CXR 05/11 shows Continued cardiomegaly and [...] Lactated Ringers IV 05/10/24 01:59 Not Given .[id number] DORI Immune Globulin 30 gm in 300 [...] 05/10/24 00:22 PROTOCOL PRN Bolus Documentation Pyridostigmine [place] 30 mg 05/14/23 14:00 05/14/23 13:41 Pyridostigmine [place] 60 Mg Tablet NG-TUBE 05/13/24 13:59 [...] . Documented By: Eliezer Newell MD 05/14/23 1984 Signed By: <Electronically signed by Eliezer Newell MD> 05/14/23 5350 [facility] Work Phone: 1(704) 357-781109-24-2023 Progress note Author Jamel Packer [facility] May 14, 2023 12:14pm Note Date/Time May 14, 2023 11:10am [facility] [address] [place] [address] Neurology Progress Note Signed Patient: Taurus Garcia MR#: [id number] : 1945 Acct:[id number] Age/Sex: 77 / M Adm Date: 3 Loc: Room: [address] [place] [address] Type: ADM IN Attending Dr: Eliezer Newell [...] signed by Jamel Packer DO> 05/14/23 1214 [facility] Work Phone: 1([phone]) [phone] Progress note Author Stanley Burt [facility] May 14, 2023 12:02pm Note Date/Time May 14, 2023 9:12am [facility] [address] [place] [address] Pulmonology Progress Note Signed Patient: Taurus Garcia MR#: [id number] : 1945 Acct:[id number] Age/Sex: 77 / M Adm Date: 3 Loc: Room: [address] [place] [address] Type: ADM IN Attending Dr: Eliezer Newell [...] Content 8.4 ABG Base Excess 7.1 H /30/5 Assessment/Plan Assessment/Plan (1) Acute respiratory failure with hypoxia: (2) Myasthenic crisis: (3) CKD (chronic kidney disease) stage 3, GFR 30-59 ml/min: (4) Obstructive sleep apnea: Plan Hospital day #4, ventilator day #4 for patient with history of myasthenia gravisas well as prior pulmonary embolism who was transferred from outside hospital ([facility]) with progressive decompensation likely related to myasthenia gravis exacerbation. Patient's potassium is stable with patient getting day #4 of intravenous immunoglobulin today. Continue supportive care with patient alreadyon apixaban with nutritional support and stress ulcer prophylaxis. Note that cultures remain negative. Documented By: Stanley Burt MD 3 0910 Signed By: <Electronically signed by MD Stanley Burt> 05/14/23 1202 [facility] Work Phone: 1([phone]) 456-128309-23-2023 Progress note Author Eliezer Newell [facility] May 13, 2023 6:40pm Note Date/Time May 13, 2023 5:41pm [facility] [address] [place] [address] Hospitalist Progress Note Signed Patient: Taurus Garcia MR#: [id number] : 1945 Acct:[id number] Age/Sex: 77 / M Adm Date: 3 Loc: Room: [address] [place] [address] Type: ADM IN Attending Dr: Eliezer Newell MD Copies to: ~ Date of Service: 05/13/2023 Subjective Subjective Narrative: Assessment And Plan 77M with PMH of HTN, HLD, Myasthenia Gravis (Dx 2017), CKD, PE(On Eliquis) who was admitted to [facility] 05/09 for generalized weakness. He was intubated there then transferred for the evaluation and treatment of suspected acute myasthenia gravis exacerbation. Acute Respiratory Failure due to Myasthenia gravis exacerbation remain on MV with low O2 demand The patient required intubation at [facility] CXR 05/11 shows Continued cardiomegaly and [...] Lactated Ringers IV 05/10/24 01:59 75 mls/hr .[id number] DORI Administration Immune Globulin 30 gm in [...] signed by Eliezer Newell MD> 05/13/23 1840 [facility] Work Phone: 1([phone]) [phone] Progress note Author Stanley Burt [facility] May 13, 2023 1:31pm Note Date/Time May 13, 2023 10:36am [facility] [address] [place] [address] Pulmonology Progress Note Signed Patient: Taurus Garcia MR#: [id number] : 1945 Acct:[id number] Age/Sex: 77 / M Adm Date: 3 Loc: Room: [address] [place] [address] Type: ADM IN Attending Dr: Eliezer Newell [...] 14 165/74 H 94 L Mechanical Ventilation 05/13/23 10:05/13/23 10:05/13/23 10:05/13/23 10:05/13/23 10:05/13/23 10:05/13/23 [...] embolism who was transferred from outside hospital ([facility]) with progressive decompensation likely related to myasthenia [...] signed by MD Stanley Burt> 05/13/23 1331 [facility] Work Phone: 1([phone]) 359-301409-23-2023 Progress note Author Jamel Packer [facility] May 13, 2023 1:04pm Note Date/Time May 13, 2023 1:04pm [facility] [address] [place] [address] Neurology Progress Note Signed Patient: Taurus Garcia MR#: [id number] : 1945 Acct:[id number] Age/Sex: 77 / M Adm Date: 3 Loc: Room: [address] [place] [address] Type: ADM IN Attending Dr: Eliezer Newell [...] [facility] completing his IVIG course. Code(s): G70.01 - Myasthenia gravis with (acute) exacerbation Status: Acute Documented By: Jamel Packer DO 05/13/23 1301 Signed By: <Electronically signed by Jamel Packer DO> 05/13/23 1304 [facility] Work Phone: 1([phone]) 331-202509-22-2023 Progress note Author Eliezer Newell [facility] May 12, 2023 6:48pm Note Date/Time May 12, 2023 3:45pm [facility] [address] [place] [address] Hospitalist Progress Note Signed Patient: Taurus Garcia MR#: [id number] : 1945 Acct:[id number] Age/Sex: 77 / M Adm Date: 3 Loc: Room: [address] [place] [address] Type: ADM IN Attending Dr: Eliezer Newell MD Copies to: ~ Date of Service: 05/12/2023 Subjective Subjective Narrative: Assessment And Plan 77M with PMH of HTN, HLD, Myasthenia Gravis (Dx 2016), CKD, PE(On Eliquis) who was admitted to [facility] 05/09 for generalized weakness. He was intubated there then transferred for the evaluation and treatment of suspected acute myasthenia gravis exacerbation. Acute Respiratory Failure remain on MV with low O2 demand The patient required intubation at [facility] CXR 05/11 shows Continued cardiomegaly and [...] Lactated Ringers IV 05/10/24 01:59 75 mls/hr .[id number] DORI Administration Immune Globulin 30 gm in [...] . Documented By: Eliezer Newell MD 05/12/23 0737 Signed By: <Electronically signed by Eliezer Newell MD> 05/12/23 1441 [facility] Work Phone: 1(571) 974-388509-22-2023 Progress [facility] May 12, 2023 2:06pm Note Date/Time May 12, 2023 2:06pm [facility] [address] [place] [address] Neurology Progress Note Signed Patient: Taurus Garcia MR#: [id number] : 1945 Acct:[id number] Age/Sex: 77 / M Adm Date: 3 Loc: Room: [address] [place] [address] Type: ADM IN Attending Dr: Eliezer Newell [...] signed by Jamel Packer DO> 05/12/23 1406 [facility] Work Phone: 1([phone]) [phone] Progress note Author Stanley Burt [facility] May 12, 2023 11:21am Note Date/Time May 12, 2023 8:32am [facility] [address] [place] [address] Pulmonology Progress Note Signed Patient: Taurus Garcia MR#: [id number] : 1945 Acct:[id number] Age/Sex: 77 / M Adm Date: 3 Loc: Room: [address] [place] [address] Type: ADM IN Attending Dr: Eliezer Newell [...] embolism who was transferred from outside hospital ([facility]) with progressive decompensation likely related to myasthenia [...] <Electronically signed by MD Stanley Burt> 05/12/[address] [place] [address] Ctr Work Phone: 1([phone]) 411-690209-22-2023 Progress note Author Eliezer Newell [facility] May 12, 2023 12:47am Note Date/Time May 11, 2023 4:12pm [facility] [address] [place] [address] Hospitalist Progress Note Signed Patient: Taurus Garcia MR#: [id number] : 1945 Acct:[id number] Age/Sex: 77 / M Adm Date: 3 Loc: Room: [address] [place] [address] Type: ADM IN Attending Dr: Eliezer Newell MD Copies to: ~ Date of Service: 05/11/2023 Subjective Subjective Narrative: Assessment And Plan 77M with PMH of HTN, HLD, Myasthenia Gravis(Dx 2016), CKD, PE (On Eliquis) who was admitted to [facility] 05/09 for generalized weakness. He was intubated there then transferred for the evaluation and treatment of suspected acute myasthenia gravis exacerbation. Acute respiratory failure The patient required intubation at [facility] CXR 05/11 shows Continued cardiomegaly and [...] 05/11/23 14:00 05/11/23 16:05 05/11/23 14:00 05/11/23 14:05/11/23 14:00 Narrative: GENERAL: on acute stress, Intubated [...] mls/hr 05/11/23 00:45 05/11/23 16:05 Diprivan IV 09/20/24 00:44 40 mcg/kg/min .Q2H16M DORI 35.45 mls/hr Administration Protocol 50 MCG/KG/MIN Lactated Ringer's 1,000 mls @ 75 mls/hr 05/11/23 02:00 05/11/23 16:04 Lactated Ringers IV 05/10/24 01:59 75 mls/hr .[id number] DORI Administration Immune Globulin 30 gm in [...] signed by Eliezer Newell MD> 05/12/23 0047 [facility] Work Phone: [phone] Consult note Author Jamel Packer [facility] May 11, 2023 1:53pm Note Date/Time May 11, 2023 12:06pm [facility] [address] [place] [address] Neurology Consult Note Signed Patient: Taurus Garcia MR#: [id number] : 1945 Acct:[id number] Age/Sex: 77 / M Adm Date: 3 Loc: Room: [address] [place] [address] Type: ADM IN Attending Dr: Eliezer Newell MD Copies to: DO Komal Bajwa II, MD Marwan Wassouf, MD~ HPI Consult Date: 05/11/23 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 Impression dictated by: Aide Moe M.D.05/11/2023 7:14 AM Dictation Location: [place] [address] Assessment/Plan (1) Myasthenic crisis: Assessment/Problem Details: CONSULT [...] pulmonary emboli on chronic Eliquis. Transferred from [facility]. Initially presented there on May 09, [...] <Electronically signed by Jamel Packer DO> 05/11/23 8205 [facility] Work Phone: 1([phone]) [phone] Consult note Author Lexy Chappell [facility] May 11, 2023 12:44pm Note Date/Time May 11, 2023 12:45pm [facility] [address] [place] [address] Pulmonology Consult Note Signed Patient: Taurus Garcia MR#: [id number] : 1945 Acct:[id number] Age/Sex: 77 / M Adm Date: 3 Loc: Room: [address] [place] [address] Type: ADM IN Attending Dr: Eliezer Newell [...] history of pulmonary emboli who presented to [facility] with weakness, swallowing difficulties, and shortness [...] mg PO DAILY 12/27/17 [History Confirmed 05/10/23] afvhwtqy-rjo-nxcim acid 0.4 mg-lycopene 300 mcg-lutein 250 mcg [...] signed by Lexy Chappell MD> 05/11/23 1244 [facility] Work Phone: 1([phone]) [phone] History and physical note Author Jarret Garza [facility] May 11, 2023 1:33am Note Date/Time May 11, 2023 1:07am [facility] [address] [place] [address] Hospitalist H&P Signed Patient: Taurus Garcia MR#: [id number] : 1945 Acct:[id number] Age/Sex: 77 / M Adm Date: 3 Loc: Room: [address] [place] [address] Type: ADM IN Attending Dr: Jarret Garza MD Copies to: MD Jarret Gonsalves II, MD~ HPI DATE OF EXAMINATION: 05/11/23 CHIEF COMPLAINT: Acute exacerbation of myasthenia gravis HISTORY OF PRESENT ILLNESS: Patient is a 77-year-old male with 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 to our facility for concern of acute myasthenia gravis exacerbation. Patient presented to [facility] on 05/09/2023 complaining of weakness over3 [...] his airway secretions, patient was intubated at [facility]. They reached outto our neurology service [...] mg PO DAILY 12/27/17 [History Confirmed 05/10/23] csbblcht-yqb-usraz acid 0.4 mg-lycopene 300 mcg-lutein 250 mcg [...] no leukocytosis from most recent labs at [facility]. Repeat labs in am -Will start antibiotics [...] signed by Jarret Garza MD> 05/11/23 0133 [facility] Work Phone: 1([phone]) 311-117602-28-2023 History of Present illness Narrative* Addison Vick MD - 10/18/2022 12:48 PM EST Physician Progress Note PATIENT: TAURUS GARCIA CSN #: [id number] : 1945 ADMIT DATE: 10/15/2022 6:59 PM [...] any questions. Danie Maldonado RN, CDS cell- [phone] office hours - [id number]-[id number] Options provided: -- sepsis due to UTI [...] patches multiple times this shift. When this com writer went to pt room due to [...] there is no need to wear it. teacher physically impaired AIR SAMPLER for hospitalist group notified. * Colten Rosen RCP - 10/17/2022 9:43 PM EST Pt has own CPAP machine from home Unit was checked. 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 [facility] Office: [phone] Dharmesh Barbosa DO, Taurus Hoover DO, Jae [...] Sesay MD, Israel Lara MD, Marcelle Decker, DIRECTOR EMPLOYMENT, Adore Fraga, DIRECTOR EMPLOYMENT, Jolly Cardona, DIRECTOR EMPLOYMENT, Komal Bauer, DIRECTOR EMPLOYMENT, Malaika Ortiz, DNP, Cynthia Amado, DIRECTOR EMPLOYMENT, Dee Lazo, DIRECTOR EMPLOYMENT, Joana Ponce, DIRECTOR EMPLOYMENT, Mookie Castro, DIRECTOR EMPLOYMENT, Teresita Robb, DIRECTOR EMPLOYMENT, Jarrod Ladd PA-C, Eliza Majano, A CLASS LINEMAN, Susanne Mock, DIRECTOR EMPLOYMENT, Jaja Stanton, DIRECTOR EMPLOYMENT [facility] IN-PATIENT SERVICE [facility] Progress Note 10/17/2022 11:11 AM Name: Taurus Garcia Acct: [id number] Room: [address] [place] [address] Day: 2 Admit Date: 10/15/2022 6:59 PM [...] post TURBTx2, BCG therapy who presented to [facility] 10/13 with penile bleeding/suspected Smith trauma with BCG installation status post Smith placement, and discharged home. Patient returned to [facility] earlier today with fevers with suspected sepsis with Smith associated UTI and recommended for transfer to [facility] for urologic evaluation Status post second [...] No results for input(s): PROT, LABALBU, LABA1C, H7XSWOH, Y6ETZJM, FT4, TSH, AST, ALT, LDH, GGT, ALKPHOS, LABGGT, BILITOT, BILIDIR, AMMONIA, AMYLASE, LIPASE, LACTATE, CHOL, HDL, LDLCHOLESTEROL, CHOLHDLRATIO, TRIG, VLDL, PQI80DA, PHENYTOIN, PHENYF, URICACID, POCGLU in the last 72 hours. ABG:No results found for: POCPH, PHART, PH, POCPCO2, JQS8WUB, PCO2, POCPO2, PO2ART, PO2, POCHCO3, BYC3LKN, HCO3, NBEA, PBEA, BEART, BE, THGBART, THB, JAT8RYM, ERAQ3QJP, Y0CDKAAQ, O2SAT, FIO2 No results found for: SPECIAL [...] Fever, unspecified 10/15/2022 Yes Bladder cancer ([facility]) 10/16/2022 Yes Gross hematuria 10/16/2022 Yes Malaise and fatigue 10/16/2022 Yes Acute weakness 10/16/2022 Yes Myasthenia gravis ([facility]) 10/16/2022 Yes JAMISON (obstructive sleep apnea) 10/16/2022 Yes Current chronic use of systemic steroids 10/16/2022 Yes Type 2 diabetes mellitus with diabetic neuropathy, without long-term current use of insulin ([facility]) 10/16/2022 Yes Morbid obesity ([facility]) 10/16/2022 Yes Hyponatremia 10/16/2022 Yes Hypokalemia 10/16/2022 Yes Acute retention of urine 10/16/2022 Yes Hypomagnesemia 10/16/2022 Yes Hypocalcemia 10/16/2022 Yes CRP elevated 10/17/2022 Yes Elevated procalcitonin 10/17/2022 Yes Bandemia 10/17/2022 Yes SIRS (systemic inflammatory response syndrome) ([facility]) 10/17/2022 Yes Plan: Acute fever, possible [...] were not included. [facility] - Infectious diseases evaluation admission date [...] to the BCG instillation Infection Control Recommendations Register Precautions Contact Isolation Antimicrobial Stewardship Recommendations Simplification of therapy Targeted therapy History of Present Illness: Initial history: Taurus Garcia is a 77 y.o.-year-old male transferred from [facility] because of sepsis. He has a history of BCG due to high-grade known muscle invasive bladder cancer, post TURBT x2 his last BCG was 10/13/2022 They noticed some bleeding from the urethra after the BCG installation and hence came to [facility], they thought it might be from the prior Smith, so another Smith was placed and was discharged home. That he came back with fatigue malaise fever chills. There was a concern for urosepsis and urine analysis was abnormal. He was sent to [facility] Interval changes 10/17/2022 Patient Vitals for the past 8 hrs: Weight 10/17/22 0600 (!) 318 lb 7 oz (144.4 kg) 10/17 Afebrile, vitals stable UA many WBC, nitrate and small leukocyte esterase Complaining of diarrhea overnight, liquid BM every 45 min, no foul smell Summary of relevant labs: Labs: Platelet, Vyxvcwyptveu871 WBC6.3 CRP86.3 High Procalcitonin0.20 High Micro: U [...] Keiko Jc Office: Perfect serve / office [phone] I have discussed the care of the [...] procalcitonin Bandemia SIRS (systemic inflammatory response syndrome) ([facility]) Plan: Follow-up culture results Appreciate infectious disease recommendations Maintain Smith catheter for now, will void trial prior to discharge No active urologic intervention planned Please call urology for any further questions Jovan Morales MD 7:22 AM 10/17/2022 * Honorio Vuong MD - 10/16/2022 11:27 AM EST Images from the original note were not included. [facility] Office: [phone] Dharmesh Barbosa DO, Taurus Hoover DO, Jae Vela DO, Aaron Dobson DO, Tu Diallo MD, Marisabel Roldan MD, Tiara Chambers MD, Lena Guerra MD, Honorio Vuong MD, Addison Vick MD, Caleb Espinoza DO, Enrico Myers MD, Shae Sanches DO, Eliel Rizzo MD, Maulik Regan MD, Danie Barbosa DO, Gracia Altamirano MD, Uziel Nebsitt MD, Real De La Cruz DO, Haven Uribe MD, Nicolle Barros MD, Risa Chawla MD, Diann Vang MD, Stanley Valdes DO, Viri Sesay MD, Israel Lara MD, Marcelle Decker, GM, Adore Fraga, GM, Jolly Cardona, GM, Komal Bauer, GM, Malaika Ortiz DNP, Cynthia Amado, GM, Dee Lazo, DIRECTOR EMPLOYMENT, Joana Ponce, DIRECTOR EMPLOYMENT, Mookie Castro, DIRECTOR EMPLOYMENT, Teresita Robb, DIRECTOR EMPLOYMENT, Jarrod Ladd PA-C, Eliza Majano, A CLASS LINEMAN, Susanne Mock, GM, Jaja Stanton, GM [facility] IN-PATIENT SERVICE [facility] Progress Note 10/16/2022 11:27 AM Name: Taurus Garcia Acct: [id number] Room: [address] [place], [place] [address] Day: 1 Admit Date: 10/15/2022 6:59 PM [...] post TURBTx2, BCG therapy who presented to [facility] 10/13 with penile bleeding/suspected Smith trauma with BCG installation status post Smith placement, and discharged home. Patient returned to [facility] earlier today with fevers with suspected sepsis with Smith associated UTI and recommended for transfer to [facility] for urologic evaluation Patient describes abrupt [...] Smith with decompression. Patient did return to [facility] ED earlier today with persistent malaise and [...] No results for input(s): PROT, LABALBU, LABA1C, D5DWKFV, F4WAKPJ, FT4, TSH, AST, ALT, LDH, GGT, ALKPHOS, LABGGT, BILITOT, BILIDIR, AMMONIA, AMYLASE, LIPASE, LACTATE, CHOL, HDL, LDLCHOLESTEROL, CHOLHDLRATIO, TRIG, VLDL, XXL78GY, PHENYTOIN, PHENYF, URICACID, POCGLU in the last 72 hours. ABG:No results found for: POCPH, PHART, PH, POCPCO2, QBR6WQM, PCO2, POCPO2, PO2ART, PO2, POCHCO3, MRF4JKN, HCO3, NBEA, PBEA, BEART, BE, THGBART, THB, LOO8DVZ, APVM1YRD, L2RUZYJG, O2SAT, FIO2 No results found for: SPECIAL [...] 11:08 AM documented in this encounterBON [facility] CENT[facility]ouch[facility] [employer] Work Phone: 1(383) 964-302102-28-2023 Hospital course Narrative* Addison Vick MD - 10/18/2022 12:10 PM EST Images from the original note were not included. [facility] Office: [phone] Dharmesh Barbosa DO, Taurus Hoover DO, Jae Vela DO, Aaron Dobson DO, Tu Diallo MD, Marisabel Roldan MD, Tiara Chambers MD, Lena Guerra MD, Honorio Vuong MD, Addison Vick MD, Caleb EspinozaDO, Enrico Myers MD, Shae Sanches DO, Eliel Rizzo MD, Maulik Regan MD, Danie Barbosa DO, Gracia Altamirano MD, Uziel Nesbitt MD, Real De La Cruz DO, Haven Uribe MD, Nicolle Barros MD, Risa Chawla MD, Diann Vang MD, Stanley Valdes DO, Viri Sesay MD, Israel Lara MD, Marcelle Decker, DIRECTOR EMPLOYMENT, Adore Fraga, DIRECTOR EMPLOYMENT, Jolly Cardona, DIRECTOR EMPLOYMENT, Komal Bauer, DIRECTOR EMPLOYMENT, Malaika Ortiz, DNP, Cynthia Amado, DIRECTOR EMPLOYMENT, Dee Lazo, DIRECTOR EMPLOYMENT, Joana Ponce, DIRECTOR EMPLOYMENT, Mookie Castro, DIRECTOR EMPLOYMENT, Teresita Robb, DIRECTOR EMPLOYMENT, Jarrod Ladd PA-C, Eliza Majano, A CLASS LINEMAN, Susanne Mock, DIRECTOR EMPLOYMENT, Jaja Stanton, DIRECTOR EMPLOYMENT [facility]PATIENT [facility] Discharge Summary Patient ID: Taurus Garcia : 1945 ACCOUNT: [id number] Patient's PCP: Komal Schaffer MD Admit Date: [...] Physician Follow Up: Komal Schaffer MD [address] [address] Follow up in 1 week(s) your urologist [...] this patient's care. 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 Any problems you or family members [...] provider tells you to take them. Taking prcx-drg-ukrhbeo medicines, vitamins, herbs, and supplements. Tests You [...] 06/03/2010 Document Revised: 03/08/2019 Document Reviewed: 03/08/2019 [employer] Patient Education 2020 [employer]. Follow Up Care 03/03/2022 14:58:42 With:Autumn Molina MD, Yoko Hair, URO Address: [facility] [address], [place] [address] [phone] When: Unknown Comments:schedule Cysto/TURBT and CT [facility] [place] 07-14-2022 Hospital Discharge instructions Patient Education 03/03/2022 11:28:54 Post Op Patient Instructions - FT (CUSTOM) Follow Up Care 02/09/2022 11:58:15 With:Yoko Leyva Address: [facility] [address] [place] [address]- Business (1) When:2 to 4 weeks Comments:Reviewed pathology report and plan exudative treatment.Call for any problems.Call for followup appointment [facility]07-05-2022 Note [id number]:[id number] 02-01-2022 Hospital Discharge instructions Patient Education [...] cells. Follow these instructions at home: Take kzim-cha-qohulla and prescription medicines only as told by [...] is important. Where to find more information [employer]: www.cancer.org National Cancer Hor[employer] (NCI): www.cancer.gov Contact a health care provider [...] 08/09/2004 Document Revised: 07/20/2018 Document Reviewed: 07/11/2017 [employer] Patient Education 2020 [employer]. [facility] [place] 05-09-2022 Hospital Discharge instructions Patient Education 12/27/2021 [...] Follow these instructions at home: Medicines Take aixr-icg-hkujrzd and prescription medicines only as told by [...] or the blood stops without treatment. Take isuw-zxj-lrncnky and prescription medicines only as told by your health care provider. Drink enough fluid to keep your urine clear or pale yellow. This information is not intended to replace advice given to you by your health care provider. Make sure you discuss any questions you have with your health care provider. Document Released: 08/07/2006 Document Revised: 01/01/2020 Document Reviewed: 09/09/2017 [employer] Patient Education 2020 [employer]. Follow Up Care 12/07/2021 14:21:16 With:Autumn Molina MD, oYko Hair, URO Address: [facility] [address] , [place] [address]- When: Unknown Comments:schedule follow up after TURBT [facility] 04-19-2022 Hospital Discharge instructions Patient Education 12/07/2021 [...] Follow these instructions at home: Medicines Take fhpr-gmy-xmtscns and prescription medicines only as told by [...] or the blood stops without treatment. Take nitv-drj-xlayxzd and prescription medicines only as told by your health care provider. Drink enough fluid to keep your urine clear or pale yellow. This information is not intended to replace advice given to you by your health care provider. Make sure you discuss any questions you have with your health care provider. Document Released: 08/07/2006 Document Revised: 01/01/2020 Document Reviewed: 09/09/2017 [employer] Patient Education 2020 [employer]. Follow Up Care 11/05/2021 14:25:01 With:Autumn Molina MD, Yoko Hair URO Address: [facility] [address] [place] [address] [phone] When: Unknown [facility] discharge summary Author Chau Lara [facility] May 21, 2023 12:26pm Note Date/Time May 21, 2023 12 :23pm [facility] [address] [place] [address] Discharge Summary Signed Patient: Taurus Garcia MR#: [id number] : 1945 Acct:[id number] Age/Sex: 77 / M Adm Date: 3 Loc: Room: [address] [place] [address]: Chau Lara MD Copies to: KomalMD Chau Moreau II, MD~ Providers Date of Discharge: 05/21/23 [...] CKD, PE(On Eliquis) who was admitted to [facility] 05/09 for generalized weakness. He was [...] Discharge Plan Discharge Plan Patient Disposition: Rehab [facility] Additional Instructions: Inpatient Rehab to manage care: [...] signed by Chau Lara MD> 05/21/23 1226 [facility] Work Phone: Evaluation + Plan note Future Appointments Appointment Date:12/27/2021 01:00:00 PM Scheduled Provider:Autumn Molina MD, Yoko Hair Location:[facility] Appointment Type:URO Procedure 15 min Diagnostic Tests Pending * UroVysion Fish and Urine Cyto ([facility]) 12/07/21 * UroVysion Fish and Urine Cyto ([facility]) 12/07/21 [facility] evaluation + Plan note Future Appointments Appointment Date:02/01/2022 10:30:00 AM Scheduled Provider:Yoko Leyva Jr., MD Location:[facility] Appointment Type:URO Office Visit [facility] evaluation + Plan note Future Appointments Appointment Date:02/01/2022 10:30:00 AM Scheduled Provider:Yoko Leyva Jr., MD Location:[facility] Appointment Type:URO Office Visit Diagnostic Tests Pending * Urine Culture 01/21/22 [facility] + Plan note Future Appointments Appointment Date:03/03/2022 11:00:00 AM Scheduled Provider: Location:[facility] Appointment Type:Surgery FT Diagnostic Tests Pending * Urine Culture 02/17/22 [facility] + Plan note Future Appointments Appointment Date:03/29/2022 11:00:00 AM Scheduled Provider:Yoko Leyva Jr., MD Location:[facility] Appointment Type:URO Office Visit [facility] note* Diagnosis Malignant neoplasm of overlapping sites of bladder (HCC)- Primary Malignant neoplasm of other specified sites of bladder documented in this encounter [facility] note* Diagnosis Screening for genitourinary condition Screening for other and unspecified genitourinary condition documented in this encounter [facility] noteNo assessment information availableC[facility] Work Phone: Evaluation note* Diagnosis Fever, [...] response syndrome, unspecified documented in this encounter [facility] Work Phone: evaluation note* Diagnosis Onset [...] (urinary tract infection) due to Enterococcus acute [facility] Work Phone: Evaluation note* Diagnosis Onset [...] Oropharyngeal dysphagia acut e Pulmonary emboli acute [facility] Work Phone: Evaluation note* Diagnosis Paroxysmal atrial fibrillation (CMS/HCC) Atrial fibrillation Pulmonary embolism, unspecified chronicity, unspecified pulmonary embolism type, unspecified whether acute cor pulmonale present (CMS/HCC) Myasthenia gravis (CMS/HCC) Myasthenia gravis without exacerbation High risk medication use Essential hypertension Unspecified essential hypertension Mixed hyperlipidemia Morbid obesity with BMI of 45.0-49.9, adult (CMS/[facility]) documented in this encounter [facility] Work Phone: Evaluation note* Diagnosis Bilateral leg weakness- Primary Muscle weakness (generalized) Difficulty walking Difficulty in walking Right leg pain Pain in soft tissues of limb documented in this encounter [facility]* Diagnosis Type 2 diabetes mellitus with diabetic neuropathy, without long-term current use of insulin ([facility])- Primary Benign essential hypertension ([facility]) Essential hypertension, benign Paroxysmal atrial fibrillation ([facility]) Atrial fibrillation documented in this encounter [facility] [...] tissues of limb documented in this encounter [facility] HealthcareEvaluation note* Diagnosis Routine general medical examination at health care facility- Primary Routine general medical examination at a health care facility ACP (advance care planning) Other specified counseling Osteoarthritis of spine with radiculopathy, 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, without long-term current use of insulin ([facility]) Type 2 diabetes 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, without long-term current use of insulin ([facility]) Myasthenia gravis without (acute) exacerbation (G70.00) Atherosclerosis of viejas artery of both lower extremities with intermittent claudication ([facility]) Morbid (severe) obesity due to excess calories (E66.01) Body mass index [BMI] 45.0-49.9, adult (Z68.42) documented in this encounter [facility] HealthcareEvaluation note* Diagnosis Myasthenia gravis ([facility])- Primary Myasthenia gravis without exacerbation Class 3 severe obesity due to excess calories with serious comorbidity and body mass index (BMI) of 45.0 to 49.9 in adult ([facility]) documented [facility] encounter [facility]* Diagnosis 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cosis of toenails of both feet- Primary Venous insufficiency Unspecified venous (peripheral) insufficiency documented in this encounter [facility] HealthcareEvaluation note* Diagnosis Onset Date Resolution Status Acute hypokalemia acute Dyspnea acute Generalized weakness acute [facility] Work Phone: Evaluation note* Diagnosis Onset Date Resolution Status Acute exacerbation of myasthenia gravis acute Acute hypokalemia acute Dyspnea acute Generalized weakness acute History of pulmonary embolism acute JAMISON on CPAP acute Acute exacerbation of myasthenia gravis acute Dyspnea acute Generalized weakness acute History of pulmonary embolism acute JAMISON on CPAP acute [facility] Work Phone: Evaluation note* Diagnosis Cervical stenosis of spinal canal Spinal stenosis in cervical region documented in this encounter [facility] HealthcareEvaluation note* Diagnosis Myasthenia gravis (CMS/HCC) Myasthenia gravis without exacerbation 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cosis of toenails of both feet- Primary Venous insufficiency Unspecified venous (peripheral) insufficiency documented in this encounter [facility] HealthcareEvaluation note* Diagnosis Myasthenia gravis (CMS/HCC)- Primary Myasthenia gravis without exacerbation Acute on chronic right-sided heart failure (CMS/HCC) documented in this encounter [facility] HealthcareEvaluation note* Diagnosis Myasthenia gravis (CMS/HCC)- Primary Myasthenia gravis without exacerbation Type 2 diabetes mellitus with diabetic neuropathy, without long-term current use of insulin (CMS/HCC) Myasthenic crisis (CMS/HCC) Other specified myoneural disorders Generalized weakness Benign essential hypertension (CMS/HCC) Essential hypertension, benign Localized edema Edema Impaired mobility and activities of daily living Dyspnea on exertion Other dyspnea and respiratory abnormality Malignant neoplasm of overlapping sites of bladder (CMS/HCC) Chronic respiratory failure with hypoxia (CMS/HCC) Type 2 diabetes mellitus with diabetic chronic kidney disease (CMS/HCC) Chronic kidney disease, stage 2 (mild) Paroxysmal atrial fibrillation (CMS/HCC) Atrial fibrillation Morbid (severe) obesity due to excess calories (CMS/HCC) Body mass index (BMI) 45.0-49.9, adult (CMS/HCC) documented in this encounter [facility] HealthcareEvaluation note* Diagnosis Benign essential hypertension (CMS/HCC)- Primary Essential hypertension, benign Yeast dermatitis Bradycardia Other specified cardiac dysrhythmias documented in this encounter [facility] HealthcareEvaluation note* Diagnosis Paroxysmal atrial fibrillation (Multi)- Primary Atrial fibrillation High risk medication use documented in this encounter [facility] Work Phone: Evaluation note* Diagnosis Localized edema- Primary Edema Essential hypertension Unspecified essential hypertension BMI 45.0-49.9, adult (Multi) Paroxysmal atrial fibrillation (Multi) Atrial fibrillation documented in this encounter [facility] Work Phone: Evaluation note* Diagnosis Pain [...] both upper extremities documented in this encounter [facility] HealthcareEvaluation note* Diagnosis Localized edema- Primary Edema Essential hypertension Unspecified essential hypertension BMI 45.0-49.9, adult (Multi) Paroxysmal atrial fibrillation (Multi) Atrial fibrillation BMI 45.0-49.9, adult (Multi)- Primary Localized edema Edema documented in this encounter [facility] Work Phone: Evaluation note* Diagnosis Pain [...] HealthcareHistory and physical note Author Mateo Horne [facility] June 19, 2024 2:37pm Note Date/Time June 19, 2024 2 :37pm [facility] [address] [place] [address] Hospitalist H&P Signed Patient: Taurus Garcia MR#: [id number] : 1945 Acct:[id number] Age/Sex: 78 / M Adm Date: 4 Loc: Room: [address] [place] [address] Type: ADM IN Attending Dr: Mateo Horne [...] Year ago, inSeptember, he presented to the [facility] emergency room and had to be [...] mg PO DAILY 12/27/17 [History Confirmed 06/19/24] pxgqwkrn-aen-yhhex acid 0.4 mg-lycopene 300 mcg-lutein 250 mcg [...] % (Auto) 27.5 % (.) 06/19/24 09:49 [place] % (Auto) 11.3 % (.) 06/19/24 09:49 Eos % (Auto) 1.2 % (.) 06/19/24 09:49 Baso % (Auto) 1.0 % (.) 06/19/24 09:49 Nucleat RBC Rel Count 0.1 /100 WBC (0-0.5) 06/19/24 09:49 Neut # (Auto) 5.1 x10E3/uL (1.8-7.7) 06/19/24 09:49 Lymph # (Auto) 2.4 x10E3/uL (1.00-4.8) 06/19/24 09:49 [place] # (Auto) 1.0 x10E3/uL (0.0-0.8) H 06/19/24 [...] signed by Mateo Horne DO> 06/19/24 1437 [facility] Work Phone: History and physical note Author Denzel Zamora [facility] Note Date/Time September 11, 2024 4 :18pm [facility] [address] [place] [address] Hospitalist H&P Signed Patient: Taurus Garcia MR#: [id number] : 1945 Acct:[id number] Age/Sex: 78 / M Adm Date: 5 Loc: Room: [address] [place] [address] Type: ADM IN Attending Dr: Denzel Zamora [...] and planned nerve block, recent admission to residential after admission in 07/2024for weakness, presented to [facility] with shortness of breath concerning for myasthenia [...] mg PO DAILY 12/27/17 [History Confirmed 09/11/24] fecllvpm-omq-wxtkg acid 0.4 mg-lycopene 300 mcg-lutein 250 mcg [...] and planned nerve block, recent admission to residential after admission in 07/2024for weakness, presented to [facility] with shortness of breath concerning for myasthenia [...] signed by Denzel Zamora MD> 09/11/24 1618 [facility] Work Phone: History of Present illness Narrative* [...] medication regimen. He denies medication side effects. -[facility] 250 DO Work Phone: History of Present [...] medication regimen. He denies medication side effects. -[facility] 600 DO Work Phone: Hospital course Narrative No data available for this section [facility] Discharge instructions No data available for this section [facility] Discharge instructions Additional Instructions Inpatient Rehab [...] unable to urinate, smith catheter removed on [facility] Work Phone: Hospital Discharge instructions Additional Instructions Call Dr. Saunders's office tomorrow [facility] are [facility] Work Phone: Progress note No data available for this section [facility] progress note Author Silvestre Grover [facility] June 10, 2023 9:35am Note Date/Time June 10, 2023 9 :35am [facility] [address] [place] [address] Physiatry(Rehab) Progress Note Signed Patient: Taurus Garcia MR#: [id number] : 1945 Acct:[id number] Age/Sex: 77 / M Adm Date: 3 Loc: Room: [address] [place] [address] Type: ADM IN Attending Dr: Silvestre Grover MD Copies to: ~ Date of Service: 06/09/2023 Subjective Subjective Narrative: Mr. Garcia is a 77 year old male with past medical history of myasthenia gravis,hypertension, A-fib anticoagulated with Eliquis, PE, CKD, obstructive sleep apnea on BiPAP, who presents to acute inpatient rehab with functional impairments due to MG crisis. Patient presented to [facility] on 05/11/2023 with complaints of worseninggeneralized weakness over the course of several days. He was found to be mildlyhypoxic. Also complaining of urinary symptoms. Initially admitted to [facility] for observation however developed worsening respiratory status with increased secretions and inability to protect own airway and was subsequently intubated and transferred to [facility] for neurology services. Patient received [...] mg 05/21/23 14:25 Bisacodyl 10 Mg Supp.Rect [place] 05/20/24 14:24 DAILY PRN Constipation Docusate Sodium 100 mg 05/21/23 14:25 Docusate 100 Mg Capsule PO 05/20/24 14:24 BID PRN Constipation Docusate Sodium 283 mg 05/21/23 14:25 Docusate Enema 283 Mg/5 Ml Enema [place] 05/20/24 14:24 DAILY PRN Constipation Fish Oil 1,000 mg 05/21/23 21:00 06/10/23 09:09 [place]-3/Fish Oil 1,000 Mg Capsule PO 05/20/24 20:59 1,000 mg BID DOIR Administration Furosemide 20 mg 05/22/23 09:00 06/10/23 [...] 05/31/24 08:59 Not Given DAILY DORI Pyridostigmine [place] 60 mg 05/21/23 18:00 06/10/23 09:09 Pyridostigmine [place] 60 Mg Tablet PO 05/20/24 17:59 [...] impairments secondaryto myasthenic crisis. [facility] admitted [facility]. Had to be intubated [...] equipment to enhance the patient's a functional denominational Ensure adequate nutrition and hydration Sleep: No concerns. Pain: Continue current regimen Discharge planning: Hopefully home with his tomorrow. Plan: I completed a substantive portion of this encounter, the medical decision makingportion of this note in its entirety, including Allied health note review, nursing note review, java developer consultant note review, discussion with nursing and case management, and more than 50% of my time was spent on counseling and coordination of care, time spent 25 minutes Patient was personally seen by me, Dr. Grover, on the day of encounter, reviewed the history and the relevant portions of the chart, including current orders, allied health and java developer consultant notes, labs/imaging and performed garcia elements of exam and I formulated the plan of care and facilitated the medical decision making. Documented By: Silvestre Grover MD 06/10/23 0934 Signed By: <Electronically signed by Silvestre Grover MD> 06/10/23934 [facility] Work Phone: Reason for referral (narrative)* Consultation (Routine) - Authorized Specialty Diagnoses / Procedures Referred By Contac t Referred To Contact Cardiology Diagnoses Paroxysmal atrial fibrillation (CMS/HCC) Essential hypertension Mixed hyperlipidemia Procedures Follow Up In Cardiology Baltazar Hoover DO [address] [facility] [address], [address] [address] Baltazar Hoover DO [facility] [facility] [address], [address] [address] Referral ID Status Reason Start Date Expiration Date V isits Requested Visits Authorized [id number] Authorized 09/20/2023 09/19/2024 1 1 * Cardiovascular (Routine) - Authorized Specialty Diagnoses / Procedures Referred By Contac t Referred To Contact Diagnoses Paroxysmal atrial fibrillation (CMS/HCC) Procedures ECG 12 Lead Baltazar Hooevr DO [address] [facility] [address], [address] [address] Referral ID Status Reason Start Date Expiration Date V isits Requested Visits Authorized [id number] Authorized 09/20/2023 09/19/2024 1 1 * Cardiovascular (Routine) - Pending Review Specialty Diagnoses / Procedures Referred By Contac t Referred To Contact Cardiology Diagnoses Paroxysmal atrial fibrillation (CMS/HCC) Procedures Holter Or Event Bobbin Dumper Baltazar Hoover DO [address] [place] [address] 2, [address] [address] Referral ID Status Reason Start Date Expiration Date V isits Requested Visits Authorized [id number] Pending Review 09/20/2023 09/19/2024 1 1 * Consultation (Routine) - Authorized Specialty Diagnoses / Procedures Referred By Contac t Referred To Contact Cardiology Diagnoses Paroxysmal atrial fibrillation (CMS/HCC) Procedures Follow Up In Cardiology Baltazar Hoover DO [address] [facility] [address], [address] [address] Willy Leyva, MEDICAL STAFF SPECIALIST-DIRECTOR EMPLOYMENT [address] [place] [address] 2, [place] [id number] Referral ID Status Reason Start Date Expiration Date V isits Requested Visits Authorized [id number] Authorized 09/20/2023 09/19/2024 1 1 [facility] Work Phone: Reason for referral (narrative)No reason for referral information [facility] Work Phone: Summary Purpose Family History [...] 1 :56pm Impaired mobility and activities of jsoe de jesus y living June 19, 2024 [...] section and content) DATE CREATED AUTHOR 02/07/2018 [facility] DATE CREATED AUTHOR AUTHOR'S ORGANIZ ATION 09/01/2021 [employer] DATE CREATED AUTHOR AUTHOR'S ORGANIZ ATION 01/21/2022 [facility] DATE CREATED AUTHOR AUTHOR'S ORGANIZ ATION 02/12/2022 [facility] dical Specialist DATE CREATED AUTHOR AUTHOR'S ORGANIZ ATION 07/28/2022 [facility] DATE CREATED AUTHOR AUTHOR'S ORGANIZ ATION 10/19/2022 [facility] DATE CREATED AUTHOR AUTHOR'S ORGANIZ ATION 05/26/2023 [facility] DATE CREATED AUTHOR AUTHOR'S ORGANIZ ATION 09/24/2023 [facility] DATE CREATED AUTHOR AUTHOR'S ORGANIZ ATION 11/10/2024 [facility] DATE CREATED AUTHOR AUTHOR'S ORGANIZ ATION 01/18/2025 [facility] DATE CREATED AUTHOR AUTHOR'S ORGANIZ ATION 03/03/2025 [facility] DATE CREATED AUTHOR AUTHOR'S ORGANIZ ATION 05/01/2025 [facility] DATE CREATED AUTHOR AUTHOR'S ORGANIZ ATION 05/27/2025 [facility] dical Specialists EPIC DATE CREATED AUTHOR AUTHOR'S ORGANIZ ATION 05/31/2025 [facility] Care Team (unrecognized sect ion and content) [...] Grover MD Other Provider Active Start: O 2023 End: June 22, 2024 Jamel Packer [...] Silvestre Grover MD Other Provider Active Start: 2023 Jamel Packer DO Other Provider Active [...] Active Start: June 19, 2024 Dg Jacobson , DO Emergency Provider Active Start: June 19, 2024 Mateo Horne , DO Admit Provider , Attending Provider Active Start: June 19, 2024 Jamel Packer , DO Other Provider Active Start: June 19, 2024 Abi Biswas MD Other Provider Active Start: June 19, 2024 Team Status: Inactive Member Role Status Dates Komal Schaffer II MD Primary Care Provider Active Ivan Barnhart MD Attending Provider Active Generator Switchboard Operator Relationship Specialty Start Date End Date Komal Schaffer II [address] [place] [address] PCP - General Internal Medicine 12/05/16 Generator Switchboard Operator Relationship Specialty Start Date End Date Komal Schaffer II [address] [place] [address] PCP - General Internal Medicine 12/05/16 Generator Switchboard Operator Relationship Specialty Start Date End Date Komal Schaffer MD [address] [place] [address] PCP - General Internal Medicine 10/14/22 Team [...] , DO Other Provider Active Nikole Mosqueda MEDICAL STAFF SPECIALIST Other Provider Active Rubia Henning , AIR SAMPLER-C Other Provider Active Mookie Tamayo , MEDICAL STAFF SPECIALIST-CADD OPERATOR-C Other Provider Active Silvestre Grover MD Other Provider Active Donita Armstrong MEDICAL STAFF SPECIALIST ACNP-BC Other Provider Active Lexy Chappell [...] Inactive Member Role Status Dates Komal Schaffer , GEOVANY MD Primary Care Provider Active Silvestre Grover MD Admit Provider, Attending Provider A ctive Libby Potter , HEATHER Other Provider Active Melva Mendoza , HEATHER Other Provider Active Cassi Lo , HEATHER Other Provider Active Rocio Renner , HEATHER Other Provider Active Alessia Justin RN Other Provider Active Chayito Leone , HEATHER Other Provider Active Kevin Leo MD Other Provider Active Sudhakar Leon , MEDICAL STAFF SPECIALIST Other Provider Active Meri Blanco , [...] MD Other Provider Active Candida Perez , AIR SAMPLER-C Other Provider Active Kushal Vizcarra MD Other Provider Active Torsten Burdick MD Other Provider Active Dudley Leon MD Other Provider Active Markus Johnson MD Other Provider Active Sofia Martinez , DO Other Provider Active Zia Duncan , DO Other Provider Active Rodolfo Temple , DO Other Provider Active Susanne Sharma APRN Other Provider Active Dru Reveles , DO Other Provider Active Jarret Garza MD Other Provider Active Yuki Leyva , MEDICAL STAFF SPECIALIST Other Provider Active Queenie Shepherd , MEDICAL STAFF SPECIALIST Other Provider Active Suraj Razo MD Other Provider Active Komal Albright MD Other Provider Active Angelia K Vera , MEDICAL STAFF SPECIALIST Other Provider Active Mariana Xiong , HEATHER Other Provider Active Generator Switchboard Operator Relationship Specialty Start Date End Date Komal Schaffer MD [address] [place] [address] PCP - General 05/18/23 Generator Switchboard Operator Relationship Specialty Start Date End Date Komal Schaffer MD [address] [place] [address] PCP - General Internal Medicine 01/02/23 Komal Schaffer MD [address] [place] [address] PCP - ACO Reach 01/12/23 Generator Switchboard Operator Relationship Specialty Start Date End Date Komal Schaffer MD [address] [place] [address] PCP - General Internal Medicine 01/02/23 Komal Schaffer MD [address] [place] [address] PCP - ACO Reach 01/12/23 Generator Switchboard Operator Relationship Specialty Start Date End Date Komal Schaffer MD [address] [place] [address] PCP - General Internal Medicine 01/02/23 Komal Schaffer MD [address] [place] [address] PCP - ACO Reach 01/12/23 Generator Switchboard Operator Relationship Specialty Start Date End Date Komal Schaffer MD [address] [place] [address] PCP - General Internal Medicine 01/02/23 Komal Schaffer MD [address] [place] [address] PCP - ACO Reach 01/12/23 Generator Switchboard Operator Relationship Specialty Start Date End Date Komal Schaffer MD [address] [place] [address] PCP - General Internal Medicine 01/02/23 Komal Schaffer MD [address] [place] [address] PCP - ACO Reach 01/12/23 Generator Switchboard Operator Relationship Specialty Start Date End Date Komal Schaffer MD [address] [place] [address] PCP - General Internal Medicine 01/02/23 Komal Schaffer MD [address] [place] [address] PCP - ACO Reach 01/12/23 Team Status: Inactive Member Role Status Dates Komal Schaffer II MD Primary Care Provider Active Start: February 12, 2024 End: February 12, 2024 Eriberto Leyva MD Emergency Provider Active Star t: February 12, 2024 End: February 12, 2024 Generator Switchboard Operator Relationship Specialty Start Date End Date Komal Schaffer MD [address] [place] [address] PCP - General Internal Medicine 01/02/23 Komal Schaffer MD [address] [place] [address] PCP - ACO Reach 01/12/23 Generator Switchboard Operator Relationship Specialty Start Date End Date Komal Schaffer MD [address] [place] [address] PCP - General Internal Medicine 01/02/23 Komal Schaffer MD [address] [facility] [address] [place] [address] PCP - ACO Reach 01/12/23 Generator Switchboard Operator Relationship Specialty Start Date End Date Komla Schaffer MD [address] [facility] [address] [place] [address] PCP - General Internal Medicine 01/02/23 Komal Schaffer MD [address] [facility] [address] [place] [address] PCP - ACO Reach 01/12/23 Team Status: [...] 2023 End: July 04, 2024 Sofia Martinez , [...] Active Start: June 22, 2024 Libby Potter , HEATHER Other Provider [...] Active Start: N 2023 Sofia Martinez , DO Other Provider Active Start: No 2023 Zia Duncan , DO Other Provider Active Start : June 22, 2024 Susanne Sharma APRN Other Provider Active Start: June 22, 2024 Dru Reveles , DO Other Provider Active Start: June 22, 2024 Jarret Garza MD Other Provider Active Sta rt: June 22, 2024 Yuki Leyva MEDICAL STAFF SPECIALIST Other Provider Active Start : June 22, 2024 Queenie Shepherd MEDICAL STAFF SPECIALIST Other Provider Active St art: June 22, [...] Provider Active Start: N 2023 Antonia Grier MEDICAL STAFF SPECIALIST Attending Provider Active Start: June 22, 2024 [...] Start: June 24, 2024 Meri Blanco , DO Other Provider [...] Provider Active Start: Jun Candida Perez , AIR SAMPLER-C Other Provider Active St art: June 24, [...] Martinez , Other Provider Active Start: No [id number] Zia Duncan , DO Other Provider Active Start : June 24, 2024 Susanne Sharma APRN Other Provider Active Start: June 24, 2024 Dru Reveles , Other Provider Active Start: June 24, 2024 Jarret Garza MD Other Provider Active Sta rt: June 24, 2024 Yuki Leyva APRN Other Provider Active Start : June 24, 2024 Queenie Shepherd , MEDICAL STAFF SPECIALIST Other Provider Active St art: June 24, 2024 Suraj Razo MD Other Provider Active Start: N 2023 Komal Albright MD Other Provider Active S tart: June 24, 2024 Cliff Cabral , DO Other Provider [...] Active Start: July 01, 2024 Meri Blanco , Other Provider Active Start : July [...] Perez NP-C Other Provider Active St art: July 01, [...] Other Provider Active Start: 2023 Sofia Martinez DO Other Provider Active [...] Xiong RN Other Provider Active Start: N ovember 2023 Team Status: Active Member Role Status Dates Komal Schaffer II MD Primary Care Provider Active Start: July 09, 2024 Juli Thomas APRN Emergency Provider Active Start: July 09, 2024 Danie Jaramillo , Admit Provider, Atte nding Provider Active Start: July 09, 2024 Jamel Packer , DO Other Provider Active Start: July 09, 2024 Generator Switchboard Operator Relationship Specialty Start Date End Date Komal Schaffer MD [address] [place] [address] PCP - General Internal Medicine 01/02/23 Komal Schaffer MD [address] [place] [address] PCP - ACO Reach 01/12/23 Generator Switchboard Operator Relationship Specialty Start Date End Date Komal Schaffer MD [address] [place] [address] PCP - General Internal Medicine 01/02/23 Komal Schaffer MD [address] [place] [address] PCP - ACO Reach 01/12/23 Generator Switchboard Operator Relationship Specialty Start Date End Date Komal Schaffer MD [address] [place] [address] PCP - General Internal Medicine 01/02/23 Komal Schaffer MD [address] [place] [address] PCP - ACO Reach 01/12/23 Team Status: Inactive Member Role Status Dates Komal Schaffer II MD Primary Care Provider Active Start: July 09, 2024 End: July 12, 2024 Juli Thomas APRN Emergency Provider Active Start: July 09, 2024 End: July 12, 2024 Danie Jaramillo , Admit Provider, Dimitri hernandezing Provider Active Start: July 09, 2024 End: [...] Kamaljit Melo MD Admit Provider Active Start: lawrenceber 2023 Kaz Prescott MD Other Provider Active [...] September 11, 2024 End: September 13, 2024 Generator Switchboard Operator Relationship Specialty Start Date End Date Komal Schaffer MD [address] [facility] [address] [place] [address] PCP - General Internal Medicine 01/02/23 Komal Schaffer MD [address] [place] [address] PCP - ACO Reach 01/12/23 Generator Switchboard Operator Relationship Specialty Start Date End Date Komal Schaffer MD [address] [facility] [address] [place] [address] PCP - General Internal Medicine 01/02/23 Komal Schaffer MD [address] [place] [address] PCP - ACO Reach 01/12/23 Generator Switchboard Operator Relationship Specialty Start Date End Date Komal Schaffer MD [address] [place] [address] PCP - General Internal Medicine 01/02/23 Komal Schaffre MD [address] [place] [address] PCP - ACO Reach 01/12/23 Esther Connolly, RN Clinical Advocate Family Medicine 09/27/24 Generator Switchboard Operator Relationship Specialty Start Date End Date Komal Schaffer MD [address] [place] [address] PCP - General Internal Medicine 01/02/23 Komal Schaffer MD [address] [place] [address] PCP - ACO Reach 01/12/23 Esther Connolly, RN Clinical Advocate Family Medicine 09/27/24 Generator Switchboard Operator Relationship Specialty Start Date End Date Komal Schaffer MD [address] [place] [address] PCP - General 05/18/23 Generator Switchboard Operator Relationship Specialty Start Date End Date Komal Schaffer MD [address] [place] [address] PCP - General 05/18/23 Generator Switchboard Operator Relationship Specialty Start Date End Date Komal Schaffer MD [address] [place] [address] PCP - General Internal Medicine 01/02/23 Komal Schaffer MD [address] [place] [address] PCP - ACO Reach 01/12/23 Anastasia Rayo LPN 11/08/24 Generator Switchboard Operator Relationship Specialty Start Date End Date Komal Schaffer MD [address] [place] [address] PCP - General Internal Medicine 01/02/23 Komal Schaffer MD [address] [place] [address] PCP - ACO Reach 01/12/23 Anastasia Rayo LPN 11/08/24 Generator Switchboard Operator Relationship Specialty Start Date End Date Komal Schaffer MD [address] [place] [address] PCP - General Internal Medicine 01/02/23 Komal Schaffer MD [address] [place] [address] PCP - ACO Reach 01/12/23 Anastasia Rayo LPN 11/08/24 Generator Switchboard Operator Relationship Specialty Start Date End Date Komal Schaffer MD [address] [place] [address] PCP - General Internal Medicine 01/02/23 Komal Schaffer MD [address] [place] [address] PCP - ACO Reach 01/12/23 Anastasia Rayo LPN 11/08/24 Generator Switchboard Operator Relationship Specialty Start Date End Date Komal Schaffer MD [address] [place] [address] PCP - General Internal Medicine 01/02/23 Komal Schaffer MD [address] [place] [address] PCP - ACO Reach 01/12/23 Anastsaia Rayo LPN 11/08/24 Generator Switchboard Operator Relationship Specialty Start Date End Date Komal Schaffer MD [address] [place] [address] PCP - General Internal Medicine 01/02/23 Komal Schaffer MD [address] [place] [address] PCP - ACO Reach 01/12/23 Anastasia Rayo LPN 11/08/24 Generator Switchboard Operator Relationship Specialty Start Date End Date Komal Schaffer MD [address] [place] [address] PCP - General Internal Medicine 01/02/23 Komal Schaffer MD [address] [place] [address] PCP - ACO Reach 01/12/23 Anastasia Rayo LPN 11/08/24 Generator Switchboard Operator Relationship Specialty Start Date End Date Komal Schaffer MD [address] [place] [address] PCP - General Internal Medicine 01/02/23 Komal Schaffer MD [address] [place] [address] PCP - ACO Reach 01/12/23 Anastasia Rayo LPN 11/08/24 Generator Switchboard Operator Relationship Specialty Start Date End Date Komal Schaffer MD [address] [place] [address] PCP - General 05/18/23 Generator Switchboard Operator Relationship Specialty Start Date End Date Komal Schaffer MD [address] [place] [address] PCP - General Internal Medicine 01/02/23 Komal Schaffer MD [address] [place] [address] PCP - ACO Reach 01/12/23 Anastasia Rayo [...] Other Provider Active Start: February 13, 2025 Generator Switchboard Operator Relationship Specialty Start Date End Date Komal Schaffer MD [address] [place] [address] PCP - General Internal Medicine 01/02/23 Komal Schaffer MD [address] [place] [address] PCP - ACO Reach 01/12/23 Anastasia Rayo LPN [address] [place] [address] 11/08/24 Generator Switchboard Operator Relationship Specialty Start Date End Date Komal Schaffer MD [address] [place] [address] PCP - General Internal Medicine 01/02/23 Komal Schaffer MD [address] [place] [address] PCP - ACO Reach 01/12/23 Anastasia Rayo LPN [address] [place] [address] 11/08/24 Generator Switchboard Operator Relationship Specialty Start Date End Date Komal Schaffer MD [address] [place] [address] PCP - General Internal Medicine 01/02/23 Komal Schaffer MD [address] [place] [address] PCP - ACO Reach 01/12/23 Anastasia Rayo LPN [address] [place] [address] 11/08/24 Generator Switchboard Operator Relationship Specialty Start Date End Date Komal Schaffer MD [address] [place] [address] PCP - General Internal Medicine 01/02/23 Komal Schaffer MD [address] [place] [address] PCP - ACO Reach 01/12/23 Anastasia Rayo LPN [address] [place] [address] 11/08/24 Team Status: Inactive Member Role Status Dates Komal Schaffer II MD Primary Care Provider Active Start: March 18, 2025 End: March 18, 2025 Gucci Jacques MD Attending Provider Active Star t: March 18, 2025 End: March 18, 2025 Generator Switchboard Operator Relationship Specialty Start Date End Date Komal Schaffer MD [address] [place] [address] PCP - General Internal Medicine 01/02/23 Komal Schaffer MD [address] [place] [address] PCP - ACO Reach 01/12/23 Anastasia Rayo LPN [address] [place] [address] 11/08/24 Generator Switchboard Operator Relationship Specialty Start Date End Date Komal Schaffer MD [address] [place] [address] PCP - General Internal Medicine 01/02/23 Komal Schaffer MD [address] [place] [address] PCP - ACO Reach 01/12/23 Anastasia Rayo LPN [address] [place] [address] 11/08/24 Generator Switchboard Operator Relationship Specialty Start Date End Date Komal Schaffer MD [address] [place] [address] PCP - General Internal Medicine 01/02/23 Komal Schaffer MD [address] [place] [address] PCP - ACO Reach 01/12/23 Anastasia Rayo LPN [address] [place] [address] 11/08/24 Team Status: Inactive Member Role Status Dates Komal Schaffer II MD Primary Care Provider Active Start: May 05, 2025 End: May 05, 2025 Stanley Saunders DO Attending Provider Active Start: May 05, 2025 End: May 05, 2025 Generator Switchboard Operator Relationship Specialty Start Date End Date Komal Schaffer MD [address] [address] PCP - General Internal Medicine 01/02/23 Komal Schaffer MD [address] [address] PCP - ACO Reach 01/12/23 Anastasia Rayo LPN [address] [address] 11/08/24 Source Comments (unrecognize d section and content) In the event this informatio n is protected by the Federal Confidentiality of Alcohol and Drug Abuse Patient Records regulations: The Federal rules restrict any use of the information to criminally investigate or prosecute any alcohol or drug abuse patient.[facility] the event this information is protected by the Federal Confidentiality of Alcohol and Drug Abuse Patient Records regulations: The Federal rules restrict any use of the information to criminally investigate or prosecute any alcohol or drug abuse patient.[facility] Reason for Visit (unrecogniz ed section and content) Reason Comments Bladder Cancer Specialty Diagnoses / Procedures Referred By Bo kaufman Referred To Contact Diagnoses Fever, unspecified Fever, immunocompromised patient Honorio Vuong MD [address] [place] [address] [facility] [address] [place] [address] Referral ID Status Reason Start Date Expiration Date Visits Re quested Visits Authorized [id number] 1 1 Reason Comments Follow-up 1yr Specialty Diagnoses / Procedures Referred By Bo kaufman Referred To Contact Diagnoses Paroxysmal atrial fibrillation (CMS/HCC) Procedures ECG 12 Lead Baltazar Hoover, [address] [facility] [address] [place] [address] Referral ID Status Reason Start Date Expiration Date V isits Requested Visits Authorized [id number] Authorized 09/20/2023 09/19/2024 1 1 Specialty Diagnoses / Procedures Referred By Bo kaufman Referred To Contact Physical Therapy Diagnoses Myasthenia gravis without (acute) exacerbation (CMS/HCC) Procedures [place] PHYSICAL THERAPY EVALUATION LOW COMPLEX 20 MINS Stanley Saunders MD [address] [place] [address] Darinel Lobo, PT [address] [facility] [address] [place] [address] Referral ID Status Reason Start Date Expiration Date V isits Requested Visits Authorized [id number] Authorized 09/01/2023 02/28/2024 30 30 Reason Comments [...] Contact Diagnoses Bradycardia Procedures ECG 12 Lead Deshaun Leyvana Judith, MEDICAL STAFF SPECIALIST-DIRECTOR EMPLOYMENT [address] [facility] [address], [address] [address] Phone: tel: fax: Referral ID Status Reason Start Date Expiration Date V [email or web address] Requested Visits Authorized [id number] Authorized 10/09/2024 10/09/2025 1 1 Reason Comments Follow-up Discuss Hypertension Reason Comments Toenail Care Non dm n ail care Reason Comments Follow-up Lt gt toe Reason Comments Follow-up Lt gt fx Reason Comments Follow-up Lt gt fx Reason Comments Follow-up 2m Follow up for Atr ial Fibrillation Specialty Diagnoses / Procedures Referred By Contac t Referred To Contact Cardiology Diagnoses Localized edema Procedures Follow Up In Cardiology Willy Leyva, MEDICAL STAFF SPECIALIST-DIRECTOR EMPLOYMENT [address] [facility] [address], [address] [address] Phone: tel: fax: Referral ID Status Reason Start Date Expiration Date V isits Requested Visits Authorized [id number] Authorized 11/04/2024 11/04/2025 1 1 Reason Comments [...] Uriarte RN) 0815 (Given - Provider: Adebayo Lopez, HEATHER) 0923 (Given - Provider: Adebayo Lopez RN) apixaban (ELIQUIS) tablet 5 mg 5 mg, Oral, 2 times daily, First dose on 10/16/22 at 1200, Until Discontinued, Indication of Use: History of DVT/PE (indefinite), ANTICOAGULANT 1257 (Given - Provider: Pippa Uriarte RN)2037 (Given - Provider: Shasta Ryan) 0816 (Given - Provider: Adebayo Lopez RN)2046 (Given - Provider: Silke Haney RN) 0923 [...] Lopez RN)1702 (Given - Provider: Adebayo Lopez RN)2046 (Given - Provider: Silke Haney RN) 0923 [...] - Reason: Contraindicated)2045 (Given - Provider: Silke Haney RN) 1100 [...] Lopez, RN)1501 (Given - Provider: Adebayo Lopez, HEATHER)2045 (Given - Provider: Silke Haney RN) magnesium [...] BE BASED ON THE PRIMARY CLINICAL RECORDS. [employer] provides no warranty or guarantee of the accuracy or completeness of information in this document.
--- NOTE | 2025-06-02 15:00 | PM.CN ---
Consult Note: HPI Data of Consult Patient: known to practice within the last 3 years Consult date: 06/02/25 Requesting Physician: Jadyn Wyman MD Primary Care Provider: KOMAL SCHAFFER Consult Narrative Reason for consult: low back, bilateral leg pain, right knee pain Narrative: 79yom who presents for assessment. notes persistence of low back and leg pain. also has right knee pain. has completed multiple conservative measures and medications for low back and leg pain, without much benefit. right knee xr shows right knee oa. denies adverse med side effects. cc:: CC: Jadyn Wyman MD Review of Systems ROS Status of ROS 10 or more systems reviewed and unremarkable except as noted in history and below [facility] Medical History Myasthenia gravis ?G70.00 - Myasthenia gravis without (acute) exacerbation (ICD-10) CKD (chronic kidney disease) stage 3, GFR 30-59 ml/min ?N18.30 - Chronic kidney disease, stage 3 unspecified (ICD-10) History of pulmonary embolism ?Z86.711 - Personal history of pulmonary embolism (ICD-10) Hypertension ?I10 - Essential (primary) hypertension (ICD-10) Bladder cancer ?C67.9 - Malignant neoplasm of bladder, unspecified (ICD-10) Pulmonary embolism ?I26.99 - Other pulmonary embolism without acute cor pulmonale (ICD-10) Surgical History H/O cystoscopy ?Z98.890 - Other specified postprocedural states (ICD-10) Previous back surgery ?Z98.890 - Other specified postprocedural states (ICD-10) History of appendectomy ?Z90.49 - Acquired absence of other specified parts of digestive tract (ICD-10) Family History Mother Family history of cancer Grandmother Family history of diabetes mellitus Father Family history of myocardial infarction Social History Within the past year, how often did you have a drink containing alcohol: monthly or less Within the past year, how many standard drinks containing alcohol did you have on a typical day: 1 or 2 Within the past year, how often did you have six or more drinks on one occasion: never Total score: 0 Score interpretation: A score less than 4 is consistent with normal alcohol consumption. 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 Known occupational exposures/hazards: No Highest level of school completed/degree received: high school graduate Are you now , , , , never or living with a partner: In a typical week, how many times do you talk on the telephone with family, friends, or neighbors: once per week How often do you get together with friends or relatives: once per week How often do you attend holiness or rastafarian services: never Do you belong to any clubs or organizations such as holiness groups unions, [employer] or athletic groups, or school groups: no Total score: 1 Score interpretation: A score of less than or equal to 1 indicates the most socially isolated. Little interest or pleasure in doing things: not at all Feeling down, depressed, or hopeless: not at all Feel stressed/tense/nervous/anxious/difficulty sleeping: not at all Due to disability, difficulty making decisions: No Do you think of yourself as: straight/heterosexual Gender Identity: male Meds Home Medications and Allergies Home Medications ?Medication ?Instructions ?Recorded ?Confirmed ?Type apixaban 5 mg tablet (Eliquis) 5 mg PO Q12H 05/09/23 05/26/25 History furosemide 20 mg tablet 40 mg PO DAILY 05/09/23 05/26/25 History loratadine 10 mg tablet (Claritin) 10 mg PO DAILY 05/09/23 05/26/25 History multivitamin 1 tab PO DAILY 05/09/23 05/26/25 History nebivolol 10 mg tablet 10 mg PO DAILY 05/09/23 05/26/25 History omega-3 fatty acids 1,200 mg PO BID 05/09/23 05/26/25 History potassium chloride 10 mEq 20 meq PO DAILY 05/09/23 05/26/25 History tablet,extended release(part/cryst) prednisone 10 mg tablet 15 mg PO DAILY 05/09/23 05/26/25 History pyridostigmine bromide 60 mg tablet 60 mg PO Q6H 05/09/23 05/26/25 History simvastatin 40 mg tablet 40 mg PO DAILY 05/09/23 05/26/25 History naloxone 4 mg/actuation nasal 1 spray intranasal Q2M PRN opioid 12/28/23 05/26/25 Rx spray (Narcan) overdose #2 ea clotrimazole 1 % topical cream 1 applic topical BID 09/09/24 05/26/25 History oxycodone-acetaminophen 5 mg-325 1 tab PO DAILY PRN pain 09/09/24 05/26/25 History mg tablet (Percocet) spironolactone 25 mg tablet 25 mg PO DAILY 09/09/24 05/26/25 History baclofen 10 mg tablet mg 01/27/25 History hydralazine 50 mg tablet mg 01/27/25 History lisinopril 20 mg tablet mg 01/27/25 History gabapentin 600 mg tablet 600 mg PO BID #180 tabs 03/26/25 05/26/25 Rx Allergies Allergy/AdvReac Type Severity Reaction Status Date / Time No Known Drug Allergies Allergy Verified 05/26/25 10:36 Exam Narrative Exam Narrative: Psych-alert and oriented x 3.? Attentive and appropriate, constitutionally normal, displays normal mood and affect per situation.? There are no obvious deficits in memory, reasoning, or intellect. Extremities-lower extremities are warm with minimal edema and palpable pulses. Knee-examination of the right knee reveals tenderness to palpation over the superior, inferior, lateral, and medial aspect of the knee.? Some swelling is noted without erythema. Pain is elicited with flexion and extension of the knee both actively and passively.? Some grinding is noted with these motions.? There is no notable ligamental laxity or instability.? Coordination remains intact.? Gait remains antalgic. Assessment and Plan Assessment and Plan (1) Chronic pain of right knee: (2) Lumbar stenosis with neurogenic claudication: Plan 79yom who presents for assessment. continues to have right knee pain, so will proceed with right knee injection. in terms of low back and leg pain, will refer to dr. alvarez for possible stimulator trial. he is in agreement with this plan. meds reviewed, no changes. follow up in 3 months or sooner, if needed. procedure: right knee injection medications: bupivacaine 0.25% 4cc, depomedrol 40mg I explained the details of the procedure to the patient including the risks, benefits and alternatives. We had an informed discussion and the patient verbalized understanding and signed the consent form. All questions were answered appropriately.? A time out was performed.? After obtaining a comfortable seated position, the right knee was prepped with alcohol x3. A syringe containing the above medication was attached to a 25 gauge, 1.5 inch needle under strict aseptic technique. The lateral tibial plateau was palpated.? The needle was then advanced through the subcutaneous tissue in a medial and superior direction towards the joint space.? The contents of the syringe were gently injected without any resistance. The needle was removed and pressure was applied to the injection site to decrease the incidence of ecchymosis and hematoma formation.? A sterile bandage was applied.
== END 2025-06-02 13:45 | disposition home or self-care (01) ==
LOC: PM 13:44
PROVIDERS: PCP Internal Medicine; Visit Provider Anesthesiology
DX: M25.561 Pain in right knee (principal); M48.062 Spinal stenosis, lumbar region with neurogenic claudication
CPT/HCPCS: 20610; J0665; J1010

== ENCOUNTER 2025-06-06 15:29 | Emergency (ER) | payer MEDICARE, SELFPAY ==
[2025-06-06 15:32] VITALS: BP 182/76; PULSE 83; TEMP 37.4; O2SAT 94
--- NOTE | 2025-06-06 15:38 | ED.GENADUL1 ---
HPI HPI - General Adult General Chief complaint: Back Pain/Injury Stated complaint: BACK PAIN Time Seen by Provider: 06/06/25 15:32 Source: patient Mode of arrival: ambulance History of Present Illness HPI narrative: 79-year-old male presents for back pain. Its mostly in the midline of his lower back and has been having issues like this since September but when he got out of bed today it was much worse. He has never had surgery on his back and there is been no recent trauma. No weakness or numbness or bowel or bladder problems. The pain is severe. Related Data Home Medications ?Medication ?Instructions ?Recorded ?Confirmed apixaban 5 mg tablet (Eliquis) 5 mg PO Q12H 05/09/23 06/06/25 furosemide 20 mg tablet 20 mg PO DAILY 05/09/23 06/06/25 loratadine 10 mg tablet (Claritin) 10 mg PO DAILY 05/09/23 06/06/25 multivitamin 1 tab PO DAILY 05/09/23 06/06/25 omega-3 fatty acids 1,200 mg PO BID 05/09/23 06/06/25 potassium chloride 10 mEq 20 meq PO BID 05/09/23 06/06/25 tablet,extended release(part/cryst) prednisone 10 mg tablet 30 mg PO DAILY 05/09/23 06/06/25 pyridostigmine bromide 60 mg tablet 60 mg PO Q6H 05/09/23 06/06/25 simvastatin 40 mg tablet 40 mg PO BEDTIME 05/09/23 06/06/25 oxycodone-acetaminophen 5 mg-325 1 tab PO DAILY PRN pain 09/09/24 06/06/25 mg tablet (Percocet) spironolactone 25 mg tablet 25 mg PO DAILY 09/09/24 06/06/25 baclofen 10 mg tablet 10 mg PO Q8H 01/27/25 06/06/25 hydralazine 50 mg tablet 50 mg PO Q12H 01/27/25 06/06/25 lisinopril 20 mg tablet 20 mg feeding tube DAILY 01/27/25 06/06/25 gabapentin 600 mg tablet 900 mg PO BID 06/06/25 06/06/25 nystatin 100,000 unit/gram topical 1 applic topical DAILY PRN skin 06/06/25 06/06/25 powder (Nystop) irritation Allergies Allergy/AdvReac Type Severity Reaction Status Date / Time No Known Drug Allergies Allergy Verified 05/26/25 10:36 Opioid HPI Opioid Management Most Recent Opioid Data: Last Pain Scale 10 Today, 16:09 Review of Systems ROS Narrative A ten point review of systems is negative except as noted above. PFSH PFS Medical History Myasthenia gravis ?G70.00 - Myasthenia gravis without (acute) exacerbation (ICD-10) CKD (chronic kidney disease) stage 3, GFR 30-59 ml/min ?N18.30 - Chronic kidney disease, stage 3 unspecified (ICD-10) History of pulmonary embolism ?Z86.711 - Personal history of pulmonary embolism (ICD-10) Hypertension ?I10 - Essential (primary) hypertension (ICD-10) Bladder cancer ?C67.9 - Malignant neoplasm of bladder, unspecified (ICD-10) Pulmonary embolism ?I26.99 - Other pulmonary embolism without acute cor pulmonale (ICD-10) Surgical History H/O cystoscopy ?Z98.890 - Other specified postprocedural states (ICD-10) Previous back surgery ?Z98.890 - Other specified postprocedural states (ICD-10) History of appendectomy ?Z90.49 - Acquired absence of other specified parts of digestive tract (ICD-10) Family History Mother Family history of cancer Grandmother Family history of diabetes mellitus Father Family history of myocardial infarction Social History Within the past year, how often did you have a drink containing alcohol: monthly or less Within the past year, how many standard drinks containing alcohol did you have on a typical day: 1 or 2 Within the past year, how often did you have six or more drinks on one occasion: never Total score: 0 Score interpretation: A score less than 4 is consistent with normal alcohol consumption. 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 Known occupational exposures/hazards: No Highest level of school completed/degree received: high school graduate Are you now , , , , never or living with a partner: In a typical week, how many times do you talk on the telephone with family, friends, or neighbors: once per week How often do you get together with friends or relatives: once per week How often do you attend taoism or rastafarian services: never Do you belong to any clubs or organizations such as taoism groups unions, fraternal or athletic groups, or school groups: no Total score: 1 Score interpretation: A score of less than or equal to 1 indicates the most socially isolated. Little interest or pleasure in doing things: not at all Feeling down, depressed, or hopeless: not at all Feel stressed/tense/nervous/anxious/difficulty sleeping: not at all Due to disability, difficulty making decisions: No Do you think of yourself as: straight/heterosexual Gender Identity: male Exam Narrative Exam Narrative: Nurses note and vital signs reviewed General:The patient appears uncomfortable. Skin:Warm, dry, no pallor noted.There is no rash noted. Head:Normocephalic, atraumatic Eye: Normal conjunctiva, no drainage Ears, Nose, Mouth, and Throat: oral mucosa is moist. Nares patent. Cardiovascular:Regular Rate and Rhythm Respiratory:Patient is in no distress, no accessory muscle use, lungs are clear to auscultation, no wheezing, rales or rhonchi Back: No bruise or rash GI: Soft and nontender Musculoskeletal: No swelling in his lower extremities Neurological:A&O, normal speech Psychiatric:Cooperative Constitutional Vital Signs, click to edit/add: Last Vital Signs Temp 99.4 F 06/06/25 15:32 Pulse 83 06/06/25 15:32 Resp 20 06/06/25 15:32 BP 182/76 H 06/06/25 15:32 Pulse Ox 94 L 06/06/25 15:32 O2 Del Method Room Air 06/06/25 15:32 Course Vital Signs Vital signs: Vital Signs Temperature 99.4 F 06/06/25 15:32 Pulse Rate 83 06/06/25 15:32 Respiratory Rate 20 06/06/25 15:32 Blood Pressure 182/76 H 06/06/25 15:32 Pulse Oximetry 94 L 06/06/25 15:32 Oxygen Delivery Method Room Air 06/06/25 15:32 Temperature 99.4 F 06/06/25 15:32 Pulse Rate 83 06/06/25 15:32 Respiratory Rate 20 06/06/25 15:32 Blood Pressure 182/76 H 06/06/25 15:32 Pulse Oximetry 94 L 06/06/25 15:32 Oxygen Delivery Method Room Air 06/06/25 15:32 Medical Decision Making MDM Narrative Medical decision making narrative: X-ray showed degenerative changes but no acute findings. CT scan is pending at the time of this dictation. I have spoken to Dr. Leo and the patient will be admitted pending the outcome of the CAT scan. Findings were discussed with the patient. Differential Diagnosis Differential Diagnosis: Intractable back pain, compression fracture Discharge Plan Discharge Chief Complaint: Back Pain/Injury Clinical Impression: Intractable low back pain Patient Disposition: Admitted as Observation Time of Disposition Decision: 18:41 Condition: Fair
--- OUTSIDE RECORDS SUMMARY | 2025-06-06 15:49 | XMS_ITS | CCD ---
Author Organization [facility] CliniSyin Care Team Providers Care Certified Peer Specialist Name Role Phone OLIVIA HALL Unavailable Unavailable [...] Provider Komal Schaffer II Primary Care Provider [phone] GEOVANY Schaffer Primary Care Provider MD Ivan Barnhart Attending Provider GEOVANY Schaffer Primary Care Provider MD Ivan Barnhart Attending Provider [phone] Leyva, Yoko L Attending Unavailable Leyva, Yoko [...] Other Provider ANAMARIA Henning-Daniella Rascon Other Provider [phone] ZACH Tamayo-SKIFF OPERATOR-C Mookie Nichols Other Provider MD Silvestre Grover Other Provider ZACH Armstrong Other Provider MD Lexy Chappell Other Provider MD Stanley Burt Other Provider MD Rhonda Rawls Other Provider DO Colten Xavier Other Provider MD Sudhakar Gross Other Provider MD Eriberto Yang Other Provider [phone] MD Jamel Noe Other Provider DO Dejuan Og Other Provider MD Chau Lara Attending Provider Schaffer II, Dr. Komal Mckeon Primary [facility] [place] vailable Schaffer II, Dr. Komal Mckeon [facility] [place] vailable Schaffer II, Dr. Komal Mckeon [facility] [place] vailable Schaffer II, Dr. Komal Mckeon [facility] [place] vailable Leyva, Ms. Willy Hanley Attending Unavai lable Leyva, Ms. Willy Hanley Referring Unavai lable Kiko, Dr. Baltazar Laws Referring Unava ilable Sarbjit II, Dr. Komal Mckeon [facility] [place] vailable Kiko, Dr. Baltazar Laws Attending Unava ilable Schaffer, II [facility] Care Provider MD Silvestre Grvoer Admit Provider MD Silvestre Grover Attending Provider [phone] HEATHER Potter Other Provider Unavailable HEATHER Mendoza Other Provider Unavailable HEATHER Lo Other Provider Unavailable HEATHER Renner Other Provider Unavailable HEATHER Justin Other Provider Unavailable HEATHER Leone Other Provider Unavailable MD Kevin Leo Other Provider ZACH Leon Other Provider DO Meri Blanco Other Provider [phone] MD Ubaldo Calvo Other Provider DO Mateo [...] MD Unavailable GEOVANY Schaffer Primary Care Provider [phone] MD Eriberto Leyva Emergency Provider [phone] GEOVANY Schaffer Komal Primary Care Provider DO [...] Admit Provider Silvestre Grover MD Attending Provider [phone] Tariq ROMERO, Libby Other Provider Unavailable Kelly ROMERO, Melva Other Provider Unavailable Rocio Renner RN Other Provider Unavailable Vasu ROMERO, Chayito Other Provider Unavailable Alem Hinds RN Other Provider Unavailable Kevin Leo MD Other Provider Meri Blanco DO Other Provider Ubaldo Calvo MD Other Provider Ozzie GARCIA Mateo Other Provider Anette BRIDGES, Tyson Other Provider Marsha Fritz MD Other Provider Danie Calles DO Other Provider Barry BRIDGES, Keaton Other Provider Unavailable Meera Vargas APRN Other Provider Reece BRIDGES, Eliezer Other Provider Dustin tSapleton MD Other Provider Ute Colvin MD Other Provider Chau Lara MD Other Provider Danie Jaramillo DO Other Provider [phone] Chetan Gray MD Other Provider Cuong Dos Santos MD Other Provider Ana COMPUTER CUSTOMER SUPPORT SPECIALIST-C, Candida Hickman Other Provider [phone] Arjun SERRANO, Manuel Ceja Other Provider Unavailable Zackery BRIDGES, Kushal Nichols Other Provider Torsten Burdick MD Other Provider Dudley Leon MD Other Provider Lizette BRIDGES, Mo Other Provider Unavailable Markus Johnson MD Other Provider Sofia Martinez DO Other Provider Zia Duncan DO Other Provider Susanne Sharma APRN Other Provider Dru Reveles DO Other Provider [phone] Greg BRIDGES, Jarret Ceja Other Provider Yuki Leyva APRN Other Provider Queenie Shepherd APRN Other Provider Suraj Razo MD Other Provider Komal Albright MD Other Provider Cabral DO, Cliff T Other Provider Lauri DO, Иван Other Provider Edward BRIDGES, Bharathi Garcia Other Provider Casper BRIDGES, Vince Sewell Other Provider [phone] Nikole Jaeger APRN Other Provider Kenyon BRIDGES, Kaz Other Provider Kameron BRIDGES, Kamaljit Other Provider Mariana Xiong RN Other Provider Unavailable Juli Thomas APRN Emergency Provider Danie Jaramillo DO Admit Provider [phone] Danie Jaramillo DO Attending Provider Komal Schaffer II Primary Care Provider [phone] Dg Jacobson DO Emergency Provider Unavai marvin Horne DO, Mateo Admit Provider Mateo Horne DO Attending Provider [...] Cuong Dos Santos MD Other Provider Ana COMPUTER CUSTOMER SUPPORT SPECIALIST-C, Candida Hickman Other Provider Arjun SERRANO, Manuel [...] Casper BRIDGES, Vince Sewell Other Provider [phone] Nikole Jaeger APRN Other Provider Kenyon BRIDGES, Kaz Other Provider Kameron BRIDGES, Kamaljit Other Provider Mariana Xiong RN Other Provider Unavailable Juli Thomas APRN Emergency Provider Danie Jaramillo DO Admit Provider Danie Jaramillo DO Attending Provider Kameron BRIDGES, Kamaljit Admit Provider Kaz Prescott MD Attending Provider Gucci Jacques MD Other Provider Peyman Hall DO Other Provider [phone] Bruce BRIDGES, Joseline Moore Emergency Provider [phone] Noah BRIDGES, Denzel Admit Provider Denzel Zamora MD Attending Provider Esther Connolly RN Unavailable Rayo FORMS DESIGNER, Anastasia Unavailable Unavailable BALTAZAR HOOVER Attending Unavailable [...] Admit Provider Jarret Garza MD Attending Provider [phone] Jamel Packer DO Other Provider Jarret Garza [...] Unavailable Komal Schaffer Primary Care Unavailable Jamel Pacekr Consulting Unavailable Danie Jaramillo Attending Unavailable Danie [...] Leyva Consulting Unavailable Queenie Shepherd Consulting Unavailable Sruaj Razo Consulting Unavailable Komal Albright Consulting Unavailable [...] Unavailcarrie Jacques MD, Gucci Nichols Attending Provider [phone] Ivan Barnhart Attending Unavailable KOMAL SCHAFFER Primary Care Unavailable Stanley Saunders DO Attending Provider [phone] AIDE GARCIA Attending Unavailable LEELA BOCANEGRA Attending Unavailable MOOKIE TAMAYO Attending Unavailable LEELA BOCANEGRA Attending Unavailable REAL OG Attending Unavailable DALJITLEELA Attending Unavailable REAL OG Attending Unavailable REAL OG Attending Unavailable REAL OG Referring Unavailable REAL OG Attending Unavailable STANLEY SAUNDERS Attending Unavailable REAL GO Attending Unavailable DOTTIE BOCANEGRARI Marcial Attending Unavailable DOTTIE BOCANEGRARI Marcial Attending Unavailable STANLEY SAUNDERS Attending Unavailable REAL OG Attending Unavailable LEELA BOCANEGRA Attending Unavailable CHAVA OGS Carrie Attending Unavailable DOTTIE BOCANEGRARI Marcial Attending Unavailable Giedraitis , Andrius Vytsalena Attending Unavailable Giedraitis , Andrius Vytautnandini Attending [...] Medication Allergies] Propensity to adverse reactions (disorder) [facility] Repository (6 sources) nebivolol; Translations: [NEBIVOLOL] Drug Allergy [facility] Medications Current Medications Medication Drug Class(es) [...] q12hr, # 14 cap(s), Refills(s) 0, Pharmacy: [facility], 172, cm, 03/29/22 11:26:00 EDT, Height/Length [...] take 1 capsule by mouth twice daily [place]-3 Fatty Acids-Fish Oil (Fish Oil) 360-1,200 mg [...] Ordered take 1 capsule by mo [facility] twice daily Fish Oil 1200 MG Oral [...] Active Start: 06-19-2024 take 2 capsules by [facility] twice daily Gabapentin 300 mg capsule Active [...] 07-05-2019 take 1 capsule by mo [facility] twice daily gabapentin (NEURONTIN) 300 mg capsule [...] by mouth twice daily. lactobacillus rhamnosus gg [id number] unt oral capsule (1 source) Start: 10-17-19 [...] day with food Oral 0 06/30/2009 Active Ahmxqsxn-Pes-Hh-Lycopen-Lute in (Adults 50 Plus) 0.4-300-250 mg-mcg-mcg Tablet (15 sources) Start: 12-27-2017 take 1 tablet by mouth once daily Start: 12-27-2017 take 1 tablet by gloria th once daily Xofoakai-Rmc-Xp-Lycopen-Lutein (Adults 5 0 Plus) 0.4-300-250 mg-mcg-mcg Tablet Active 1 TAB PO Daily December 27, 2017 12:00am Complies with drug therapy Start: 12-27-2017 take 1 tablet by gloria th once daily Teyogegp-Nem-Yz-Lycopen-Lutein (Adults 5 0 Plus) 0.4-300-250 mg-mcg-mcg Tablet Active 1 TAB PO Daily December 26, 2017 11:00pm Start: 12-27-2017 take 1 tablet by gloria th once daily Ircrfafl-Pzb-Ke-Lycopen-Lutein (Adults 5 0 Plus) 0.4-300-250 mg-mcg-mcg Tablet [...] by mouth once daily. 0 Active omega 6-oyu-thh-fish oil 360 mg-108 mg- 180 mg-1,200 mg capsule (4 sources) take 1 capsule by mouth twice daily omega 2-lyy-kif-fish oil 360 mg-108 mg- 180 mg-1,200 mg capsule Take 1 capsule by mouth 2 times a day. Active omega 3-dha-epa- fish oil 360 mg-108 mg- 180 mg-1,200 mg capsule TAKE DIRECTED. Active omega 3-dha-epa- fish oil 360 mg-108 mg- 180 mg-1,200 mg capsule TAKE DIRECTED. 0 Active [place]-3 Fatty Acids (FISH OIL) 1200 MG CAPS (1 source) Start: 06-08-2022 take 1 capsule by mouth at bedtime [place]-3 Fatty Acids (FISH OIL) 1200 MG CAPS [...] tablet by mouth four times daily Pyridostigmine Fay 60 mg tablet Discontinued 1 TAB PO [...] 19, 2024 12:00am June 22, 2024 12:27pm [id number] 200 actuat albuterol 0.09 mg/actuat metered dose [...] procedure, # 2 tab(s), Refills(s) 0, Pharmacy: [facility] Start Date: 12/07/21 Status: Ordered cocoa butter 0.884 mg/mg / phenylephrine hydrochloride 0.0025 mg/mg rectal suppository (9 sources) alpha-1 Adrenergic Agonist Start: 06-22-20 End: 07-09-20 Phenylephrine-[place] Butter (Preparation H(Pe,Cb)) 0.25-88.44 % Suppository Discontinued 1 SUPP GA Twice daily as needed for hemorrhoids 0 [...] 07-31-2024 Start: 12-07-2021 take 1 capsule by [facility] once daily hydrochlorothiazide-triamterene 25 mg-37.5 mg Cap [...] End: 09-11-2024 Start: 06-09-2023 nystatin (Myco statin) 178156 UNIT/GM powder 06/09/2023 Active Start: 06-09-2023 nystatin (Myco statin) 145215 UNIT/GM powder APPLY TO THE AFFECTED AREA(S) THREE TIMES DAILY FOR 30 DAYS 06/09/2023 Active Start: 06-09-2023 End: 06-19-2024 Nystatin (Nystop) 100,000 un it/gram Powder Discontinued 1 APPLIC TOPICAL Three times daily 09 19June 09, 2023 12:00am June 19, 2024 10:38am Start: 06-09-2023 End: 06-19-2024 [place]-3 Fatty Acids, FISH OIL, 360-1,200 mg cap (2 sources) take 1 capsule by mouth twice daily [place]-3 Fatty Acids, FISH OIL, 360-1,200 mg cap [...] q12hr, # 30 tab(s), Refills(s) 0, Pharmacy: [facility] Start Date: 02/01/22 Status: Ordered Comment on above: Take 100 mg by mouth twice daily as needed. 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; Translations: [OTH DETENTION CURRENT DRUG THERAPY] Onset: 01-20-2022 Episodic Other aftercare (8 sources) retirement (current) use of anticoagulants; Translations: [Long-term (current) use of anticoagulants] Onset: 01-20-2022 07-04-2024 Episodic Other aftercare (20 sources) Taking high risk medication; Translations: [Other fdc (current) drug therapy] Onset: 09-20-2023 09-20-2023 Episodic Other aftercare (20 sources) Long-term current use of anticoagulant; Translations: [retirement (current) use of anticoagulants] Onset: 09-17-2024 06-23-2024 [...] Range Facility Consent Formson 04-29-2025 Consent Forms [id number]#[id number] Normal [facility] Urinalysis macro (dipstick) panel (U)on 04-01-2025 Bilirubin, UA Negative Negative - 4(70) +++ mg/dL [facility] Blood, UA Negative Negative - 50 Rodri/mcL [facility] Clarity, UA Clear [facility] Color, UA Yellow [facility] Glucose, UA Negative Negative - 2000(110) ++++ mg/dL [facility] Interpretation and review of laboratory results Normal [facility] Ketones, UA Negative Negative - 160(16) ++++ mg/dL [facility] Leukocytes, UA Negative Negative - 500+++ Danilo/mcL [facility] Nitrite, UA Negative Negative - Positive [facility] pH, UA 5 5 - 9 [facility] Protein, UA Negative Negative - 1999(20) ++++ mg/dL [facility] Spec Grav, UA 1.005 1 - 1.03 [facility] Urobilinogen, UA 0.2 0.2 - 12 mg/dL [facility] ALL CKMBon 02-26-2025 TBH CREATININE KINASE MB 2.35 ng/mL NINF - 3.60 ng/mL [facility] CCF CKon 02-26-2025 CK [Catalytic activity/Vol] 122 U/L 39 - 308 U/L [facility] No Panel Informationon 02-26 [facility] HEALT H DROP OFF CLINISYNC [facility] [place] [address] Magnetic Resonance Report Signed Patient: TAURUS GARCIA MR#: [id number] : 1945 Acct:[id number] Age/Sex: 79 / M ADM Date: 02/24/25 Loc: MRI Attending Dr: Kimberly Wright NP Ordering Physician: Kimberly Wright NP Date of Service: 02/24/25 Procedure(s): MR lumbar spine wo con Accession Number(s): [id number] cc: KOMAL SCHAFFER ; Kimberly Wright NP [address] [place] [address] Patient Name: TAURUS GARCIA MRN: [facility]:[id number] date: 1945 Sex: M Assigned Patient Location: MRI Current Patient Location: MRI Accession/Order Number: [id number] Exam Date: 02/24/2025 19:25 Report Date: 02/24/2025 [...] right neural foramina (more content not included)... [facility] Radiology, Radiologangelo sidhu MD - 02/24/2025 [place] [address] Magnetic Resonance Report Signed Patient: TAURUS GARCIA MR#: [id number] : 1945 Acct:[id number] Age/Sex: 79 / M ADM Date: 02/24/25 Loc: MRI Attending Dr: Kimberly Wright NP Ordering Physician: Kimberly Wright NP Date of Service: 02/24/25 Procedure(s): MR lumbar spine wo con Accession Number(s): [id number] cc: KOMAL SCHAFFER ; Kimberly Wright NP [place] [id number] Patient Name: TAURUS GARCIA MRN: [facility]:[id number] date: 1945 Sex: M Assigned Patient Location: MRI Current Patient Location: MRI Accession/Order Number: [id number] Exam Date: 02/24/2025 19:25 Report Date: 02/24/2025 [...] Menjivar M.D. 02/24/2025 7:31 PM Dictation Location: [place] [address] Electronically authenticated by: [id number] Y Date: 02/24/2025 19:31 Dictated By: Mihai Menjivar M.D. Signed By: 02/24/251933 DD/ 30 TD/TT: Transcriptio (more content not included)... [facility] Radiology Study observation (narrative) [facility] MR LUMBAR SPINE WO CONOrdere d By: Radiologist Radiology on 02-24-2025 [facility] Work Phone: XR LUMBAR SPINE 6V W BENDING on 02-24-2025 [place] [address] XRay Report Signed Patient: TAURUS GARCIA MR#: [id number] : 1945 Acct:[id number] Age/Sex: 79 / M ADM Date: 02/24/25 Loc: MRI Attending Dr: Kimberly Wright NP Ordering Physician: Kimberly Wright NP Date of Service: 02/24/25 Procedure(s): XR lumbar spine 6V w bending Accession Number(s): [id number] cc: KOMAL SCHAFFER ; Kimberly Wright NP [place] [id number] Patient Name: TAURUS GARCIA MRN: [facility]:[id number] date: 1945 Sex: M Assigned Patient Location: MRI Current Patient Location: MRI Accession/Order Number: [id number] Exam Date: 02/24/2025 16:24 Report Date: 02/24/2025 [...] Mock M.D. 02/24/2025 4:27 PM Dictation Location: [place] [address] Electronically authenticated by: [id number] Y Date: 02/24/2025 16:27 Dictated By: Aaron Mock D.O. Signed By: 02/24/25 1629 DD/ 26 TD/TT: Cost Control Analyst: [facility] Radiology Radiolognagelo sidhu MD - 02/24/2025 [place] [address] XRay Report Signed Patient: TAURUS GARCIA MR#: [id number] : 1945 Acct:[id number] Age/Sex: 79 / M ADM Date: 02/24/25 Loc: MRI Attending Dr: Kimberly Wright NP Ordering Physician: Kimberly Wright NP Date of Service: 02/24/25 Procedure(s): XR lumbar spine 6V w bending Accession Number(s): [id number] cc: KOMAL SCHAFFER ; Kimberly Wright NP [place] [address] Patient Name: TAURUS GARCIA MRN: [facility]:[id number] date: 1945 Sex: M Assigned Patient Location: MRI Current Patient Location: MRI Accession/Order Number: [id number] Exam Date: 02/24/2025 16:24 Report Date: 02/24/2025 [...] Mock M.D. 02/24/2025 4:27 PM Dictation Location: [place] [address] Electronically authenticated by: [id number] Y Date: 02/24/2025 16:27 Dictated By: Aaron Mock D.O. Signed By: 02/24/25 1629 DD/ 1627 TD/TT: Cost Control Analyst: [facility] [employer] Radiology Study observation (narrative) [facility] XR LUMBAR SPINE 6V W BENDING Ordered By: Radiologist Radiology on 02-24-2025 [facility] [employer] Work Phone: Complete Blood Count Auto Di ffon 02-14-2025 Basophils (Bld) [#/Vol] 0.1 10*3/uL Normal 0.0-0.2 [facility] Comment on above: Result Comment: PERF ORMED BY:[address] [place], [place] [id number] MEDICAL DIRECTORJIMENA RICHARDSON M.D. Performed By: #### C BC, CMP, MG ####[address] Basophils/100 WBC (Bld) 1.4 % Normal . [facility] Comment on above: Performed By: #### C BC, CMP, MG ####[address] Eosinophils (Bld) [#/Vol] 0.1 10*3/uL Normal 0.0-0.45 [facility] Comment on above: Performed By: #### C BC, CMP, MG ####[address] Eosinophils/100 WBC (Bld) 1.5 % Normal . [facility] Comment on above: Performed By: #### C BC, CMP, MG ####[address] Erythrocyte distribution width (RBC) [Ratio] 16.8 % High 12.0-14.8 [facility] Comment on above: Performed By: #### C BC, CMP, MG ####[address] Hematocrit (Bld) [Volume fraction] 39.7 % Normal 38.8-50.0 [facility] Comment on above: Performed By: #### C BC, CMP, MG ####[address] Hemoglobin (Bld) [Mass/Vol] 13.3 g/dL Normal 13.0-17.0 [facility] Comment on above: Performed By: #### C BC, CMP, MG ####[address] Lymphocytes (Bld) [#/Vol] 1.3 10*3/uL Normal 1.00-4.8 [facility] Comment on above: Performed By: #### C BC, CMP, MG ####[address] Lymphocytes/100 WBC (Bld) 19.9 % Normal . [facility] Comment on above: Performed By: #### C BC, CMP, MG ####[address] MCH (RBC) [Entitic mass] 30.4 pg Normal 27.5-35.2 [facility] Comment on above: Performed By: #### C BC, CMP, MG ####[address] MCV (RBC) [Entitic vol] 90.5 fL Normal 83.5-101 [facility] Comment on above: Performed By: #### C BC, CMP, MG ####[address] Mean Corpuscular HGB Conc 33.6 g/dL Normal 32.5-35.6 [facility] Comment on above: Performed By: #### C BC, CMP, MG ####[address] Monocytes (Bld) [#/Vol] 0.9 10*3/uL High 0.0-0.8 [facility] Comment on above: Performed By: #### C BC, CMP, MG ####[address] Monocytes/100 WBC (Bld) 13.8 % Normal . [facility] Comment on above: Performed By: #### C BC, CMP, MG ####[address] Neutrophils (Bld) [#/Vol] 4.1 10*3/uL Normal 1.8-7.7 [facility] Comment on above: Performed By: #### C BC, CMP, MG ####[address] Neutrophils/100 WBC (Bld) 63.4 % Normal . [facility] Comment on above: Performed By: #### C BC, CMP, MG ####[address] NRBC% 0.1 /100{WBC} Normal 0-0.5 [facility] Comment on above: Performed By: #### C BC, CMP, MG ####[address] Platelet mean volume (Bld) [Entitic vol] 8.5 fL Normal 6.6-10.1 [facility] Comment on above: Performed By: #### C BC, CMP, MG ####[address] Platelets (Bld) [#/Vol] 182 10*3/uL Normal 150-450 [facility] Comment on above: Performed By: #### C BC, CMP, MG ####[address] RBC (Bld) [#/Vol] 4.39 10*6/uL Normal 3.90-5.60 [facility] Comment on above: Performed By: #### C BC, CMP, MG ####[address] WBC (Bld) [#/Vol] 6.5 10*3/uL Normal 4.1-10.5 [facility] Comment on above: Performed By: #### C BC, CMP, MG ####[address] White Blood Count 6.5 [CFU]/mL Normal 4.1-10.5 [facility] Comment on above: Performed By: #### C BC, CMP, MG ####[address] Comprehensive Metabolic Pane rc 02-14-2025 Albumin [Mass/Vol] 3.4 g/dL Low 3.5-5.7 [facility] Comment on above: Performed By: #### C BC, CMP, MG ####[address] Albumin/Globulin [Mass ratio] 1.5 {ratio} Normal [facility] Comment on above: Performed By: #### C BC, CMP, MG ####[place] [address] [place] [id number] [facility] ALP [Catalytic activity/Vol] 49 U/L Normal 34-104 [facility] Comment on above: Performed By: #### C BC, CMP, MG ####[place] [address] [place] [id number] [facility] ALT [Catalytic activity/Vol] 16 U/L Normal 7-52 [facility] Comment on above: Performed By: #### C BC, CMP, MG ####[place] [address] [address] Anion gap [Moles/Vol] 12.1 mmol/L Normal 6.0-15.0 [facility] Comment on above: Performed By: #### C BC, CMP, MG ####[address] AST [Catalytic activity/Vol] 22 U/L Normal 13-39 [facility] Comment on above: Performed By: #### C BC, CMP, MG ####[address] Bilirubin [Mass/Vol] 1.0 mg/dL Normal 0.3-1.0 [facility] Comment on above: Performed By: #### C BC, CMP, MG ####[place] [id number] [facility] Calcium [Mass/Vol] 8.7 mg/dL Normal 8.6-10.3 [facility] Comment on above: Performed By: #### C BC, CMP, MG ####[place] [id number] [facility] Chloride [Moles/Vol] 104 mmol/L Normal 98-107 [facility] Comment on above: Performed By: #### C BC, CMP, MG ####[place] [id number] [facility] CO2 [Moles/Vol] 27.7 mmol/L Normal 21.0-31.0 [facility] Comment on above: Performed By: #### C BC, CMP, MG ####[address] Creatinine [Mass/Vol] 1.37 mg/dL High 0.70-1.30 [facility] Comment on above: Performed By: #### C BC, CMP, MG ####[address] Creatinine Clr Calc Pharmacy 57.23 Normal [facility] Comment on above: Performed By: #### C BC, CMP, MG ####[address] GFR/1.73 sq M.predicted MDRD (S/P/Bld) [Vol rate/Area] 51.824 mL/min/{1.73_m2} Normal [facility] Comment on above: Performed By: #### C BC, CMP, MG ####[address] Globulin (S) [Mass/Vol] 2.3 g/dL Normal [facility] Comment on above: Performed By: #### C BC, CMP, MG ####[address] Glucose [Mass/Vol] 110 mg/dL High 70-100 [facility] Comment on above: Result Comment: [place] Glucose Reference Range is dependent on time and content of last meal. Glucose of more than 200 mg/dL in a nonstressed, ambulatory subject supports the diagnosis of Diabetes Mellitus. ADA recommended reference range Performed By: #### C BC, CMP, MG ####[address] Potassium [Moles/Vol] 3.8 mmol/L Normal 3.5-5.1 [facility] Comment on above: Performed By: #### C BC, CMP, MG ####[address] Protein [Mass/Vol] 5.7 g/dL Low 6.4-8.9 [facility] Comment on above: Performed By: #### C BC, CMP, MG ####[place] [address] Sodium [Moles/Vol] 140 mmol/L Normal 136-145 [facility] Comment on above: Performed By: #### C BC, CMP, MG ####[place] [address] [place] [id number] [facility] Urea nitrogen [Mass/Vol] 21 mg/dL Normal 7-25 [facility] Comment on above: Performed By: #### C BC, CMP, MG ####[place] [address] [place] [id number] [facility] Magnesiumon 02-14-2025 Magnesium [Mass/Vol] 1.8 mg/dL Low 1.9-2.7 [facility] Comment on above: Result Comment: PERF ORMED BY:[address] [place], [place] [phone] MEDICAL DIRECTORJIMENA RICHARDSON M.D. Performed By: #### C BC, CMP, MG ####[place] [id number] [facility] Alanine aminotransferase [En zymatic activity/volume] in Serum or PlasmaOrdered By: Kathleen Parekr on 02-13-2025 ALT [Catalytic activity/Vol] 16 U/L Normal 7-52 [facility] Comment on above: Performed By: #### C MP, CBC, HS TROP, TSH3, MG ####[place] [id number] [facility] Albumin [Mass/volume] in Ser um or Plasma by Bromocresol green (BCG) dye binding methoOrdered By: Kathleen Keith on 02-13-2025 Albumin BCG dye [Mass/Vol] 3.5 g/dL 3.5-5.7 [facility] Alkaline phosphatase [Enzyma tic activity/volume] in Serum or PlasmaOrdered By: Kathleenwarner Browningb on 02-13-2025 ALP [Catalytic activity/Vol] 48 U/L Normal 34-104 [facility] Comment on above: Performed By: #### C MP, CBC, HS TROP, TSH3, MG ####[place] [id number] [facility] Appearance of UrineOrdered B y: Kathleenwarner Browningb on 02-13-2025 Appearance (U) Clear Normal Clear [facility] Comment on above: Order Comment: Name Collection Type:: Voided Performed By: #### A DDONUAPLUS ####[address] Aspartate aminotransferase [ Enzymatic activity/volume] in Serum or PlasmaOrdered By: Kathleen Keith on 02-13-2025 AST [Catalytic activity/Vol] 24 U/L Normal 13-39 [facility] Comment on above: Performed By: #### C MP, CBC, HS TROP, TSH3, MG ####[address] BNP ser/plasOrdered By: Donaldo De Leon on 02-13-2025 Natriuretic peptide B (Bld) [Mass/Vol] 38.0 pg/mL Normal 5-100 [facility] Comment on above: Result Comment: PERF ORMED BY:[place] [address] [address] [place], [place] [id number] MEDICAL CHAVEZ RICHARDSON M.D. Performed By: #### B COMPUTER CUSTOMER SUPPORT SPECIALIST ####[address] Bacteria [Presence] in Urine by AutomatedOrdered By: Kathleen Keith on 02-13-2025 Bacteria Auto Ql (U) Rare [HPF] None Seen [facility] Basophils [#/volume] in Bloo d by Automated countOrdered By: Kathleenwarner Parker on 02-13-2025 Basophils (Bld) [#/Vol] 0.1 10*3/uL Normal 0.0-0.2 [facility] Comment on above: Result Comment: PERF ORMED BY:[place] [address] [place], [place] [id number] MEDICAL CHAVEZ RICHARDSON M.D. Performed By: #### C MP, CBC, HS TROP, TSH3, MG ####[place] [address] [place] [id number] [facility] Basophils/100 leukocytes in Blood by Automated countOrdered By: Kathleen Parker on 02-13-2025 Basophils/100 WBC (Bld) 1.2 % Normal . [facility] Comment on above: Performed By: #### C MP, CBC, HS TROP, TSH3, MG ####[place] [address] [place] [id number] [facility] Bilirubin Test strip Ql (U)O rdered By: Kathleen Parker on 02-13-2025 Bilirubin Ql (U) Negative Negative [facility] Bilirubin.total [Mass/volume ] in Serum or PlasmaOrdered By: Kathleen Parker on 02-13-2025 Bilirubin [Mass/Vol] 1.1 mg/dL High 0.3-1.0 [facility] Comment on above: Performed By: #### C MP, CBC, HS TROP, TSH3, MG ####[place] [id number] [facility] CT angio neckon 02-13-2025 CT angio neck Normal [facility] CT head/brain wo conon 02-13 CT head/brain wo con Normal [facility] Calcium [Mass/volume] in Ser um or PlasmaOrdered By: Kathleen Parker on 02-13-2025 Calcium [Mass/Vol] 9.0 mg/dL Normal 8.6-10.3 [facility] Comment on above: Performed By: #### C MP, CBC, HS TROP, TSH3, MG ####[place] [id number] [facility] Capillary blood glucose cheo urement by glucometer (mass/volume)Ordered By: Kathleen Parker on 02-13-2025 Glucose [Mass/Vol] 105 mg/dL Normal [facility] Comment on above: Random Glucose Refer ence Range is dependent on time and content of last meal. Glucose of more than 200 mg/dL in a nonstressed, ambulatory subject supports the diagnosis of Diabetes Mellitus. Result Comment: [place] Glucose Reference Range is dependent on time and content of last meal. Glucose of more than 200 mg/dL in a nonstressed, ambulatory subject supports the diagnosis of Diabetes Mellitus.PERFORMED BY:[address] [place], [place] [phone] MEDICAL DIRECTORJIMENA RICHARDSON M.D. Performed By: #### G ANASTASIIA ####Point of Care testing, Carbon dioxide, total [Moles /volume] in Serum or PlasmaOrdered By: Kathleen Parker on 02-13-2025 CO2 [Moles/Vol] 29.4 mmol/L Normal 21.0-31.0 [facility] Comment on above: Performed By: #### C MP, CBC, HS TROP, TSH3, MG ####[place] [id number] [facility] Chloride [Moles/volume] in S [place] or PlasmaOrdered By: Kathleen Parker on 02-13-2025 Chloride [Moles/Vol] 105 mmol/L Normal 98-107 [facility] Comment on above: Performed By: #### C MP, CBC, HS TROP, TSH3, MG ####[place] [id number] [facility] Color of Urine by AutoOrdere d By: Kathleen Parker on 02-13-2025 Color (U) Yellow Normal Yellow [facility] Comment on above: Order Comment: Name Collection Type:: Voided Performed By: #### A DDONUAPLUS ####[place] [id number] [facility] Complete Blood Count Auto Di ffon 02-13-2025 Mean Corpuscular HGB Conc 33.3 g/dL Normal 32.5-35.6 [facility] Comment on above: Performed By: #### C MP, CBC, HS TROP, TSH3, MG ####[place] [id number] [facility] Monocytes/100 WBC (Bld) 20.92 % High 0.00-20.00 [facility] Comment on above: Result Comment: For adults in ED, MDW > 20.0 may be associated with a higher risk of sepsis during the first 12 hrs of hospital admission Performed By: #### C MP, CBC, HS TROP, TSH3, MG ####[address] NRBC% 0.0 /100{WBC} Normal 0-0.5 [facility] Comment on above: Performed By: #### C MP, CBC, HS TROP, TSH3, MG ####[address] White Blood Count 7.3 [CFU]/mL Normal 4.1-10.5 [facility] Comment on above: Performed By: #### C MP, CBC, HS TROP, TSH3, MG ####[address] Comprehensive Metabolic Pane rc 02-13-2025 Albumin [Mass/Vol] 3.5 g/dL Normal 3.5-5.7 [facility] Comment on above: Performed By: #### C MP, CBC, HS TROP, TSH3, MG ####[address] Creatinine Clr Calc Pharmacy 64.21 Normal [facility] Comment on above: Performed By: #### C MP, CBC, HS TROP, TSH3, MG ####[address] GFR/1.73 sq M.predicted MDRD (S/P/Bld) [Vol rate/Area] 58.980 mL/min/{1.73_m2} Normal [facility] Comment on above: Performed By: #### C MP, CBC, HS TROP, TSH3, MG ####[address] Creatinine [Mass/volume] in Serum or PlasmaOrdered By: Kathleen Parker on 02-13-2025 Creatinine [Mass/Vol] 1.23 mg/dL Normal 0.70-1.30 [facility] Comment on above: Performed By: #### C MP, CBC, HS TROP, TSH3, MG ####[address] [place] [address] [facility] Dipstick and Microscopicon 0 02-13-2025 Bacteria,Urine Rare Normal None Seen [facility] Comment on above: Order Comment: Name Collection Type:: Voided Performed By: #### A DDONUAPLUS ####[address] [address] [facility] Bilirubin,Urine Negative Normal Negative [facility] Comment on above: Order Comment: Name Collection Type:: Voided Performed By: #### A DDONUAPLUS ####[address] [address] [facility] Glucose Ql (U) Normal Normal Normal [facility] Comment on above: Order Comment: Name Collection Type:: Voided Performed By: #### A DDONUAPLUS ####[address] [address] [facility] Hyaline Casts,Urine None Normal 0-8 [facility] Comment on above: Order Comment: Name Collection Type:: Voided Performed By: #### A DDONUAPLUS ####[address] [address] [facility] Mucus,Urine Rare Normal [facility] Comment on above: Order Comment: Name Collection Type:: Voided Result Comment: PERF ORMED BY:[address] [place], [place] [phone] MEDICAL CHAVEZ RICHARDSON M.D. Performed By: #### A DDONUAPLUS ####[address] [address] [place] Nitrite,Urine Negative Normal Negative [facility] Comment on above: Order Comment: Name Collection Type:: Voided Performed By: #### A DDONUAPLUS ####[address] [address] [facility] Occult Blood,Urine 1+ Normal Negative [facility] Comment on above: Order Comment: Name Collection Type:: Voided Result Comment: PERF ORMED BY:[address] [place], [place] [phone] MEDICAL CHAVEZ RICHARDSON M.D. Performed By: #### A DDONUAPLUS ####[place] [id number] [facility] Protein,Urine Negative Normal Negative [facility] Comment on above: Order Comment: Name Collection Type:: Voided Performed By: #### A DDONUAPLUS ####[address] [address] [facility] RBC,Urine 10-19 Normal 0-4 [facility] Comment on above: Order Comment: Name Collection Type:: Voided Performed By: #### A DDONUAPLUS ####[place] [id number] [facility] Specificy [place],Urine 1.018 Normal 1.001-1.03 0 [facility] Comment on above: Order Comment: Name Collection Type:: Voided Performed By: #### A DDONUAPLUS ####[address] Squamous Epithelial Cell,Urine 1-2 Normal 0-2 [facility] Comment on above: Order Comment: Name Collection Type:: Voided Performed By: #### A DDONUAPLUS ####[place] [id number] [facility] Urobilinogen,Urine Normal Normal Normal [facility] Comment on above: Order Comment: Name Collection Type:: Voided Performed By: #### A DDONUAPLUS ####[place] [id number] [facility] WBC,Urine 1-2 Normal 0-4 [facility] Comment on above: Order Comment: Name Collection Type:: Voided Performed By: #### A DDONUAPLUS ####[place] [id number] [facility] ECG 12 lead ECGon 02-13-2025 ECG 12 lead ECG Normal [facility] Eosinophils [#/volume] in Bl ood by Automated countOrdered By: Kathleen Parker on 02-13-2025 Eosinophils (Bld) [#/Vol] 0.1 10*3/uL Normal 0.0-0.45 [facility] Comment on above: Performed By: #### C MP, CBC, HS TROP, TSH3, MG ####[facility] [id number] Eosinophils/100 leukocytes i n Blood by Automated countOrdered By: Kathleen Parker on 02-13-2025 Eosinophils/100 WBC (Bld) 1.0 % Normal . [facility] Comment on above: Performed By: #### C MP, CBC, HS TROP, TSH3, MG ####[facility] [id number] [address] Epithelial cells.squamous [# /area] in Urine sediment by Automated countOrdered By: Kathleenwarner Parker on 02-13-2025 Epithelial cells.squamous Auto (Urine sed) [#/Area] 1-2 [HPF] 0-2 [facility] Erythrocyte distribution wid th [Ratio] by Automated countOrdered By: Kathleen Parker on 02-13-2025 Erythrocyte distribution width (RBC) [Ratio] 16.6 % High 12.0-14.8 [facility] Comment on above: Performed By: #### C MP, CBC, HS TROP, TSH3, MG ####[address] Erythrocytes [#/area] in Uri ne sediment by Automated countOrdered By: Kathleen Parker on 02-13-2025 RBC Auto (Urine sed) [#/Area] 10-19 [HPF] High 0-4 [facility] Erythrocytes [#/volume] in B lood by Automated countOrdered By: Kathleen Parker on 02-13-2025 RBC (Bld) [#/Vol] 4.33 10*6/uL Normal 3.90-5.60 [facility] Comment on above: Performed By: #### C MP, CBC, HS TROP, TSH3, MG ####[facility] [id number] [address] Glucose [Mass/volume] in Ser um or PlasmaOrdered By: Kathleen Browningb on 02-13-2025 Glucose [Mass/Vol] 98 mg/dL Normal 70-100 [facility] Comment on above: ADA recommended refe rence rangeRandom Glucose Reference Range is dependent on time and content of last meal. Glucose of more than 200 mg/dL in a nonstressed, ambulatory subject supports the diagnosis of Diabetes Mellitus. Result Comment: [place] Glucose Reference Range is dependent on time and content of last meal. Glucose of more than 200 mg/dL in a nonstressed, ambulatory subject supports the diagnosis of Diabetes Mellitus. ADA recommended reference range Performed By: #### C MP, CBC, HS TROP, TSH3, MG ####[facility] [id number] [place] [id number] [facility] Glucose [Mass/volume] in Uri ne by Test stripOrdered By: Kathleen Parker on 02-13-2025 Glucose Test strip (U) [Mass/Vol] Normal mg/dL Normal [facility] Hematocrit [Volume Fraction] of Blood by Automated countOrdered By: Kathleen Parker on 02-13-2025 Hematocrit (Bld) [Volume fraction] 39.2 % Normal 38.8-50.0 [facility] Comment on above: Performed By: #### C MP, CBC, HS TROP, TSH3, MG ####[place] [address] [place] [id number] [facility] Hemoglobin Test strip Ql (U) Ordered By: Kathleen Parker on 02-13-2025 Hemoglobin Ql (U) 1+ High Negative [facility] Hemoglobin [Mass/volume] in BloodOrdered By: Kathleen Parker on 02-13-2025 Hemoglobin (Bld) [Mass/Vol] 13.1 g/dL Normal 13.0-17.0 [facility] Comment on above: Performed By: #### C MP, CBC, HS TROP, TSH3, MG ####[address] [address] [facility] Hyaline casts [#/area] in Ur ine sediment by Automated countOrdered By: Kathleen Parker on 02-13-2025 Hyaline casts Auto (Urine sed) [#/Area] None [LPF] 0-8 [facility] Ketones [Presence] in Urine by Test stripOrdered By: Kathleen Parker on 02-13-2025 Ketones Ql (U) 1+ Normal Negative [facility] Comment on above: Order Comment: Name Collection Type:: Voided Performed By: #### A DDONUAPLUS ####[address] Leukocyte esterase [Presence ] in Urine by Test stripOrdered By: Kathleen Parker on 02-13-2025 Leukocyte esterase Test strip Ql (U) Negative Normal Negative [facility] Comment on above: Order Comment: Name Collection Type:: Voided Performed By: #### A DDONUAPLUS ####[address] Leukocytes [#/area] in Urine sediment by Automated countOrdered By: Kathleen Parker on 02-13-2025 WBC Auto (Urine sed) [#/Area] 1-2 [HPF] 0-4 [facility] Leukocytes [#/volume] correc blessing for nucleated erythrocytes in Blood by Automated counOrdered By: Kathleen Parker on 02-13-2025 WBC corrected for nucl RBC Auto (Bld) [#/Vol] 7.3 10*3/uL 4.1-10.5 [facility] Leukocytes [#/volume] in Blo od by Automated countOrdered By: Kathleen Parker on 02-13-2025 WBC (Bld) [#/Vol] 7.3 10*3/uL Normal 4.1-10.5 [facility] Comment on above: Performed By: #### C MP, CBC, HS TROP, TSH3, MG ####[place] [address] [place] Lymphocytes [#/volume] in Bl ood by Automated countOrdered By: Kathleen Parker on 02-13-2025 Lymphocytes (Bld) [#/Vol] 1.2 10*3/uL Normal 1.00-4.8 [facility] Comment on above: Performed By: #### C MP, CBC, HS TROP, TSH3, MG ####[address] Lymphocytes/100 leukocytes i n Blood by Automated countOrdered By: Kathleen Parker on 02-13-2025 Lymphocytes/100 WBC (Bld) 16.7 % Normal . [facility] Comment on above: Performed By: #### C MP, CBC, HS TROP, TSH3, MG ####[place] [address] MCH [Entitic mass] by Automa blessing countOrdered By: Kathleen Parker on 02-13-2025 MCH (RBC) [Entitic mass] 30.2 pg Normal 27.5-35.2 [facility] Comment on above: Performed By: #### C MP, CBC, HS TROP, TSH3, MG ####[place] [address] MCHC Auto (RBC) [Mass/Vol]Or dered By: Kathleen Parker on 02-13-2025 MCHC (RBC) [Mass/Vol] 33.3 g/dL 32.5-35.6 [facility] MCV [Entitic volume] by Auto mated countOrdered By: Kathleen Parker on 02-13-2025 MCV (RBC) [Entitic vol] 90.6 fL Normal 83.5-101 [facility] Comment on above: Performed By: #### C MP, CBC, HS TROP, TSH3, MG ####[address] Magnesium [Mass/volume] in [place] or PlasmaOrdered By: Kathleen Parker on 02-13-2025 Magnesium [Mass/Vol] 1.9 mg/dL Normal 1.9-2.7 [facility] Comment on above: Performed By: #### C MP, CBC, HS TROP, TSH3, MG ####[place] [id number] [facility] Monocyte distribution width [Entitic volume] in Blood by AutomatedOrdered By: Kathleen Parker on 02-13-2025 Monocyte distribution width Auto (Bld) [Entitic vol] 20.92 % High 0.00-20.00 [facility] Comment on above: For adults in ED, MD W > 20.0 may be associated with a higher risk of sepsis during the first 12 hrs of hospital admission Monocytes [#/volume] in Bloo d by Automated countOrdered By: Kathleen Parker on 02-13-2025 Monocytes (Bld) [#/Vol] 1.1 10*3/uL High 0.0-0.8 [facility] Comment on above: Performed By: #### C MP, CBC, HS TROP, TSH3, MG ####[facility] [id number] [place] [id number] [facility] Monocytes/100 leukocytes in Blood by Automated countOrdered By: Kathleen Parker on 02-13-2025 Monocytes/100 WBC (Bld) 15.5 % Normal . [facility] Comment on above: Performed By: #### C MP, CBC, HS TROP, TSH3, MG ####[place] [address] Mucus [Presence] in Urine by AutomatedOrdered By: Kathleen Parker on 02-13-2025 Mucus Auto Ql (U) Rare [LPF] [facility] Neutrophils [#/volume] in Bl ood by Automated countOrdered By: Kathleen Parker on 02-13-2025 Neutrophils (Bld) [#/Vol] 4.8 10*3/uL Normal 1.8-7.7 [facility] Comment on above: Performed By: #### C MP, CBC, HS TROP, TSH3, MG ####[facility] [id number] [place] [id number] [facility] Neutrophils/100 leukocytes i n Blood by Automated countOrdered By: Kathleen Parker on 02-13-2025 Neutrophils/100 WBC (Bld) 65.6 % Normal . [facility] Comment on above: Performed By: #### C MP, CBC, HS TROP, TSH3, MG ####[place] [address] [place] [address] [place] Nitrite Test strip Ql (U)Ord ered By: Kathleen Parker on 02-13-2025 Nitrite Ql (U) Negative Negative [facility] No Panel InformationOrdered By: Kathleen Parker on 02-13-2025 Estimated GFR (CKD-EPI) 58.980 mL/Min [facility] Creatinine Clearance (Chem 64.21 [facility] Nucleated erythrocytes [Pres ence] in Blood by Automated countOrdered By: Kathleen Parker on 02-13-2025 Nucleated RBC Auto Ql (Bld) 0.0 /100{WBC} 0-0.5 [facility] Platelet mean volume [Entiti c volume] in Blood by Automated countOrdered By: Kathleen Parker on 02-13-2025 Platelet mean volume (Bld) [Entitic vol] 8.3 fL Normal 6.6-10.1 [facility] Comment on above: Performed By: #### C MP, CBC, HS TROP, TSH3, MG ####[place] [address] [place] [id number] [facility] Platelets [#/volume] in Bloo d by Automated countOrdered By: Kathleen Parker on 02-13-2025 Platelets (Bld) [#/Vol] 168 10*3/uL Normal 150-450 [facility] Comment on above: Performed By: #### C MP, CBC, HS TROP, TSH3, MG ####[place] [id number] [facility] Potassium [Moles/volume] in Serum or PlasmaOrdered By: Kathleen Parker on 02-13-2025 Potassium [Moles/Vol] 4.0 mmol/L Normal 3.5-5.1 [facility] Comment on above: Performed By: #### C MP, CBC, HS TROP, TSH3, MG ####[place] [id number] [facility] Protein Test strip (U) [Mass /Vol]Ordered By: Kathleen Parker on 02-13-2025 Protein (U) [Mass/Vol] Negative Negative [facility] Protein [Mass/volume] in Ser um or PlasmaOrdered By: Kathleen Parker on 02-13-2025 Protein [Mass/Vol] 5.7 g/dL Low 6.4-8.9 [facility] Comment on above: Performed By: #### C MP, CBC, HS TROP, TSH3, MG ####[place] [id number] [facility] Serum globulin measurement b y calculation (mass/volume)Ordered By: Kathleen Parker on 02-13-2025 Globulin (S) [Mass/Vol] 2.2 g/dL [facility] Comment on above: Performed By: #### C MP, CBC, HS TROP, TSH3, MG ####[place] [address] Serum or plasma albumin/glob ulin mass ratioOrdered By: Kathleen Parker on 02-13-2025 Albumin/Globulin [Mass ratio] 1.6 {ratio} [facility] Comment on above: Performed By: #### C MP, CBC, HS TROP, TSH3, MG ####[place] [address] Serum or plasma anion gap de terminationOrdered By: Kathleen Parker on 02-13-2025 Anion gap [Moles/Vol] 9.6 mmol/L Normal 6.0-15.0 [facility] Comment on above: Performed By: #### C MP, CBC, HS TROP, TSH3, MG ####[address] Sodium [Moles/volume] in Ser um or PlasmaOrdered By: Kathleen Parker on 02-13-2025 Sodium [Moles/Vol] 140 mmol/L Normal 136-145 [facility] Comment on above: Performed By: #### C MP, CBC, HS TROP, TSH3, MG ####[address] Specific gravity Test strip (U) [Rel density]Ordered By: Kathleen Parker on 02-13-2025 Specific gravity (U) [Rel density] 1.018 1.001-1.03 0 [facility] Thyrotropin [Units/volume] i n Serum or PlasmaOrdered By: Kathleen Parker on 02-13-2025 TSH Qn 1.43 m[IU]/L Normal 0.45-5.33 [facility] Comment on above: Result Comment: PERF ORMED BY:[address] [place], [place] [phone] MEDICAL DIRECTORJIMENA RICHARDSON M.D. Performed By: #### C MP, CBC, HS TROP, TSH3, MG ####[place] [address] [place] [id number] [facility] Troponin I High Sensitivityo n 02-13-2025 Troponin I High Sensitivity 10 Normal 0-20 [facility] Comment on above: Result Comment: The Troponin units of report have been changed to meet the Chest Pain Accreditation requirement, element EC5.M1l2. Troponin units are changed from pg/ml to ng/L. Also, the decimal is removed and results are in whole numbers.PERFORMED BY:[address] [place], [place] [phone] MEDICAL DIRECTORJIMENA RICHARDSON M.D. Performed By: #### C MP, CBC, HS TROP, TSH3, MG ####[place] [address] [place] [address] [facility] Troponin I.cardiac [Mass/vol ume] in Serum or Plasma by Detection limit <= 0.01 ng/mLOrdered By: Kathleen Parker on 02-13-2025 Troponin I.cardiac DL <= 0.01 ng/mL [Mass/Vol] 10 ng/L 0-20 [facility] Comment on above: The Troponin units o f report have been changed to meet the Chest Pain Accreditation requirement, element EC5.M1l2. Troponin units are changed from pg/ml to ng/L. Also, the decimal is removed and results are in whole numbers. Urea nitrogen [Mass/volume] in Serum or PlasmaOrdered By: Kathleen Parker on 02-13-2025 Urea nitrogen [Mass/Vol] 24 mg/dL Normal 7-25 [facility] Comment on above: Performed By: #### C MP, CBC, HS TROP, TSH3, MG ####[place] [id number] [facility] Urobilinogen Test strip (U) [Mass/Vol]Ordered By: Kathleen Parker on 02-13-2025 Urobilinogen (U) [Mass/Vol] Normal mg/dL Normal [facility] X-ray reportOrdered By: See Diallo on 02-13-2025 Study report [facility] Main [place] [address] [place] [address] XRay Report Signed Patient: Taurus Garcia MR#: [id number] : 1945 Acct:[id number] Age/Sex: 79 / M ADM Date: 5 Loc: ER Room: Type: [facility] ER Attending Dr: Copies to: Kathleen [...] Jr., D.O. 02/13/2025 10:06 AM Dictation Location: [place] [address] Transcribed By: [facility] 02/13/25 1006 Dictated By: Silvestre Diallo Jr, DO 02/13/25 1005 Signed By: 02/13/25 1006 [facility] XR chest 2V*on 02-13-2025 XR chest 2V* Normal [facility] pH of Urine by Test stripOrd ered By: Kathleen Parker on 02-13-2025 pH (U) 5.5 [pH] Normal 5.0-9.0 [facility] Comment on above: Order Comment: Name Collection Type:: Voided Performed By: #### A DDONUAPLUS ####[facility] [id number] [place] [address] [facility] XR Foot - left 3 [facility] Result: Notable medial distal tuft fracture of the distal phalanx with slight displacement [facility] Radiology Study observation (narrative) [facility] BASIC METABOLIC PANEL WITH A NION GAPon 11-09-2024 BUN/CREATININE RATIO SEE NOTE: Normal 6-22 [facility] Comment on above: Result Comment: Not Reported: BUN and Creatinine are within reference range. Performed By: #### 9 0428 #### [facility] [place] [address] [employer] Operator: Daniele Carlson MD Calcium [Mass/Vol] 9.1 mg/dL Normal 8.6-10.3 [facility] Comment on above: Performed By: #### 9 2498 #### [facility] [place] [address] [employer] Operator: Daniele Carlson MD Chloride [Moles/Vol] 101 mmol/L Normal 98-110 [facility] Comment on above: Performed By: #### 9 2498 #### [facility] [place] [address] [employer] Operator: Daniele Carlson MD CO2 [Moles/Vol] 29 mmol/L Normal 20-32 [facility] Comment on above: Performed By: #### 9 2498 #### [facility] [place] [address] [employer] Operator: Daniele Carlson MD Creatinine [Mass/Vol] 1.03 mg/dL Normal 0.70-1.[address] [facility] Comment on above: Performed By: #### 9 2498 #### [facility] [place] [address] [employer] Operator: Daniele Carlson MD ELECTROLYTE BALANCE 12 mmol/L (calc) Normal 7-17 [facility] Comment on above: Performed By: #### 9 2498 #### [facility] [place] [address] [employer] Operator: Daniele Carlson MD GFR/1.73 sq M.predicted among non-blacks MDRD (S/P/Bld) [Vol rate/Area] 73 mL/min/{1.73_m2} Normal > OR = 60 [facility] Comment on above: Performed By: #### 9 2498 #### [facility] [place] [address] [employer] Operator: Daniele Carlson MD Glucose [Mass/Vol] 169 mg/dL High 65-99 [facility] Comment on above: Result Comment: Fasting reference interval For someone without known diabetes, a glucose value >125 mg/dL indicates that they may have diabetes and this should be confirmed with a follow-up test. Performed By: #### 9 2498 #### [facility] [address], [address] [place] [address] [employer] Operator: Daniele Carlson MD Potassium [Moles/Vol] 3.6 mmol/L Normal 3.5-5.[address] [facility] [address] [facility] Comment on above: Performed By: #### 9 2498 #### [facility] [address], [address] [place] [address] [employer] Operator: Daniele Carlson MD Sodium [Moles/Vol] 142 mmol/L Normal 135-146 [facility] Comment on above: Performed By: #### 9 2498 #### [facility] [place] [address] [employer] Operator: Daniele Carlson MD Urea nitrogen [Mass/Vol] 17 mg/dL Normal 7-25 [facility] Comment on above: Performed By: #### 9 2498 #### [facility] [place] [address] [employer] Operator: Daniele Carlson MD [facility] 11-06-2024 Albumin [Mass/Vol] 4.1 g/dL Normal 3.6-5.1 [facility] Comment on above: Order Comment: FASTI NG:NO FASTING: NO Performed By: #### 1 0231 #### [facility] [place] [address] [employer] Operator: Daniele Carlson MD Albumin/Globulin [Mass ratio] 1.8 {ratio} Normal 1.0-2.5 [facility] Comment on above: Order Comment: FASTI NG:NO FASTING: NO Performed By: #### 1 0239 #### [facility] [place] [address] [employer] Operator: Daniele Carlson MD ALP [Catalytic activity/Vol] 70 U/L Normal 35-144 [facility] Comment on above: Order Comment: FASTI NG:NO FASTING: NO Performed By: #### 1 0231 #### [facility] [place] [address] [employer] Operator: Daniele Carlson MD ALT [Catalytic activity/Vol] 27 U/L Normal 9-46 [facility] Comment on above: Order Comment: FASTI NG:NO FASTING: NO Performed By: #### 1 0231 #### [facility] [address], [address] [place] [address] [employer] Operator: Daniele Carlson MD AST [Catalytic activity/Vol] 23 U/L Normal 10-35 [facility] Comment on above: Order Comment: FASTI NG:NO FASTING: NO Performed By: #### 1 0231 #### [facility] [place] [address] [employer] Operator: Daniele Carlson MD Bilirubin [Mass/Vol] 0.8 mg/dL Normal 0.2-1.2 [facility] t Diagnostics Comment on above: Order Comment: FASTI NG:NO FASTING: NO Performed By: #### 1 0231 #### [facility] [place] [address] [employer] Operator: Daniele Carlson MD BUN/CREATININE RATIO SEE NOTE: Normal 6-22 [facility] Comment on above: Order Comment: FASTI NG:NO FASTING: NO Result Comment: Not Reported: BUN and Creatinine are within reference range. Performed By: #### 1 0231 #### [facility] [place] [address] [employer] Operator: Daniele Carlson MD Calcium [Mass/Vol] 9.3 mg/dL Normal 8.6-10.3 [facility] Comment on above: Order Comment: FASTI NG:NO FASTING: NO Performed By: #### 1 0231 #### [facility] [place] [address] [employer] Operator: Daniele Carlson MD Chloride [Moles/Vol] 102 mmol/L Normal 98-110 [facility] t Diagnostics Comment on above: Order Comment: FASTI NG:NO FASTING: NO Performed By: #### 1 0231 #### [facility] [place] [address] [employer] Operator: Daniele Carlson MD CO2 [Moles/Vol] 27 mmol/L Normal 20-32 [facility] Comment on above: Order Comment: FASTI NG:NO FASTING: NO Performed By: #### 1 0231 #### [facility] [place] [address] [employer] Operator: Daniele Carlson MD Creatinine [Mass/Vol] 1.11 mg/dL Normal 0.70-1.22 [facility] [employer] [facility] Comment on above: Order Comment: FASTI NG:NO FASTING: NO Performed By: #### 1 0231 #### [facility] [place] [address] [employer] Operator: Daniele Carlson MD GFR/1.73 sq M.predicted among non-blacks MDRD (S/P/Bld) [Vol rate/Area] 67 mL/min/{1.73_m2} Normal > OR = 60 [facility] Comment on above: Order Comment: FASTI NG:NO FASTING: NO Performed By: #### 1 0231 #### [facility] [place] [address] [employer] Operator: Daniele Carlson MD Globulin (S) [Mass/Vol] 2.3 g/dL Normal 1.9-3.7 [facility] Comment on above: Order Comment: FASTI NG:NO FASTING: NO Performed By: #### 1 0231 #### [facility] [place] [address] [employer] Operator: Daniele Carlson MD Glucose [Mass/Vol] 127 mg/dL Normal 65-139 [facility] Comment on above: Order Comment: FASTI NG:NO FASTING: NO Result Comment: Non-fasting reference interval For someone without known diabetes, a glucose value >125 mg/dL indicates that they may have diabetes and this should be confirmed with a follow-up test. Performed By: #### 1 0231 #### [facility] [place] [address] [employer] Operator: Daniele Carlson MD Potassium [Moles/Vol] 3.5 mmol/L Normal 3.5-5.[address] [facility] [address] [facility] Comment on above: Order Comment: FASTI NG:NO FASTING: NO Performed By: #### 1 0231 #### [facility] [place] [address] [employer] Operator: Daniele Carlson MD Protein [Mass/Vol] 6.4 g/dL Normal 6.1-8.1 [facility] Comment on above: Order Comment: FASTI NG:NO FASTING: NO Performed By: #### 1 0231 #### [facility] [place] [address] [employer] Operator: Danilee Carlson MD Sodium [Moles/Vol] 143 mmol/L Normal 135-146 [facility] Comment on above: Order Comment: FASTI NG:NO FASTING: NO Performed By: #### 1 0231 #### [facility] [place] [address] [employer] Operator: Daniele Carlson MD Urea nitrogen [Mass/Vol] 17 mg/dL Normal 7-25 [facility] Comment on above: Order Comment: FASTI NG:NO FASTING: NO Performed By: #### 1 0231 #### [facility] [place] [address] [employer] Operator: Daniele Carlson MD XR Knee - bilateral 4 Viewso n 10-22-2024 [place] [address] XRay Report Signed Patient: TAURUS GARCIA MR#: [id number] : 1945 Acct:[id number] Age/Sex: 79 / M ADM Date: 10/22/24 Loc: RAD Attending Dr: France Wyman M.D. Ordering Physician: France Wyman M.D. Date of Service: 10/22/24 Procedure(s): XR knee ARCHIE 4V Accession Number(s): [id number] cc: KOMAL SCHAFFER ; France Wyman M.D. The [place] [address] Patient Name: TAURUS GARCIA MRN: [facility]:[id number] date: 1945 Sex: M Assigned Patient Location: [facility] Current Patient Location: [facility] Accession/Order Number: [id number] Exam Date: 10/22/2024 15:22 Report Date: 10/22/2024 [...] Aide Moe M.D.10/22/2024 3:26 PM Dictation Location: [place] [address] Electronically authenticated by: [id number] Y Date: 10/22/2024 15:26 Dictated By: Aide Moe M.D. Signed By: 10/22/24 1529 DD/ 1526 TD/TT: Cost Control Analyst: [facility] Radiology Radiologangelo sidhu MD - 10/22/2024 [place] [address] XRay Report Signed Patient: TAURUS GARCIA MR#: [id number] : 1945 Acct:[id number] Age/Sex: 79 / M ADM Date: 10/22/24 Loc: RAD Attending Dr: France Wyman M.D. Ordering Physician: France Wyman M.D. Date of Service: 10/22/24 Procedure(s): XR knee ARCHIE 4V Accession Number(s): [id number] cc: KOMAL SCHAFFER ; France Wyman M.D. [place] [address] Patient Name: TAURUS GARCIA MRN: [facility]:[id number] date: 1945 Sex: M Assigned Patient Location: [facility] Current Patient Location: [facility] Accession/Order Number: [id number] Exam Date: 10/22/2024 15:22 Report Date: 10/22/2024 [...] Aide Moe M.D.10/22/2024 3:26 PM Dictation Location: [place] [address] Electronically authenticated by: [id number] Y Date: 10/22/2024 15:26 Dictated By: Aide Moe M.D. Signed By: 10/22/24 1529 DD/ 1526 TD/TT: Cost Control Analyst: [facility] Radiology Study observation (narrative) [facility] XR Knee - bilateral 4 ViewsO rdered By: Radiologist Radiology on 10-22-2024 [facility] [employer] Work Phone: [employer] Rc 10-16-2024 Albumin [Mass/Vol] 3.9 g/dL Normal 3.6-5.1 [facility] Comment on above: Order Comment: DIFFI CULT DRAW- 10/14/2024 FASTING:YES FASTING: YES Performed By: #### 1 0231 #### [facility] of [address], [address] [place] [address] [employer] Operator: Daniele Carlson MD Albumin/Globulin [Mass ratio] 1.9 {ratio} Normal 1.0-2.5 [facility] Comment on above: Order Comment: DIFFI CULT DRAW- 10/14/2024 FASTING:YES FASTING: YES Performed By: #### 1 0231 #### [facility] [address], [address] [place] [address] [employer] Operator: Daniele Carlson MD ALP [Catalytic activity/Vol] 74 U/L Normal 35-144 [facility] Comment on above: Order Comment: DIFFI CULT DRAW- 10/14/2024 FASTING:YES FASTING: YES Performed By: #### 1 0231 #### [facility] [address], [address] [place] [address] [employer] Operator: Daniele Carlson MD ALT [Catalytic activity/Vol] 24 U/L Normal 9-46 [facility] Comment on above: Order Comment: DIFFI CULT DRAW- 10/14/2024 FASTING:YES FASTING: YES Result Comment: Your request to have a duplicate copy faxed has been acknowledged. Queued to: [phone] Performed By: #### 1 0231 #### [facility] of [address], [address] [place] [address] [employer] Operator: Daniele Carlson MD AST [Catalytic activity/Vol] 21 U/L Normal 10-35 [facility] Comment on above: Order Comment: DIFFI CULT DRAW- 10/14/2024 FASTING:YES FASTING: YES Performed By: #### 1 0231 #### [facility] [address], [address] [place] [address] [employer] Operator: Daniele Carlson MD Bilirubin [Mass/Vol] 0.9 mg/dL Normal 0.2-1.2 [facility] Comment on above: Order Comment: DIFFI CULT DRAW- 10/14/2024 FASTING:YES FASTING: YES Performed By: #### 1 0231 #### [facility] [address], [address] [place] [address] [employer] Operator: Daniele Carlson MD BUN/CREATININE RATIO SEE NOTE: Normal 6-22 [facility] Comment on above: Order Comment: DIFFI CULT DRAW- 10/14/2024 FASTING:YES FASTING: YES Result Comment: Not Reported: BUN and Creatinine are within reference range. Performed By: #### 1 0231 #### [facility] [place] [address] [employer] Operator: Daniele Carlson MD Calcium [Mass/Vol] 8.6 mg/dL Normal 8.6-10.3 [facility] Comment on above: Order Comment: DIFFI CULT DRAW- 10/14/2024 FASTING:YES FASTING: YES Performed By: #### 1 0231 #### [facility] [place] [address] [employer] Operator: Daniele Carlson MD Chloride [Moles/Vol] 104 mmol/L Normal 98-110 [facility] Comment on above: Order Comment: DIFFI CULT DRAW- 10/14/2024 FASTING:YES FASTING: YES Performed By: #### 1 0231 #### [facility] [place] [address] [employer] Operator: Daniele Carlson MD CO2 [Moles/Vol] 28 mmol/L Normal 20-32 [facility] Comment on above: Order Comment: DIFFI CULT DRAW- 10/14/2024 FASTING:YES FASTING: YES Performed By: #### 1 0231 #### [facility] [address], [address] [place] [address] [employer] Operator: Daniele Carlson MD Creatinine [Mass/Vol] 1.08 mg/dL Normal 0.70-1.[address] [facility] Comment on above: Order Comment: DIFFI CULT DRAW- 10/14/2024 FASTING:YES FASTING: YES Performed By: #### 1 0231 #### [facility] [address], [address] [place] [address] [employer] Operator: Daniele Carlson MD GFR/1.73 sq M.predicted among non-blacks MDRD (S/P/Bld) [Vol rate/Area] 69 mL/min/{1.73_m2} Normal > OR = 60 [facility] Comment on above: Order Comment: DIFFI CULT DRAW- 10/14/2024 FASTING:YES FASTING: YES Performed By: #### 1 0231 #### [facility] [address], [address] [place] [address] [employer] Operator: Daniele Carlson MD Globulin (S) [Mass/Vol] 2.1 g/dL Normal 1.9-3.7 [facility] Comment on above: Order Comment: DIFFI CULT DRAW- 10/14/2024 FASTING:YES FASTING: YES Performed By: #### 1 0231 #### [facility] [address], [address] [place] [address] [employer] Operator: Daniele Carlson MD Glucose [Mass/Vol] 111 mg/dL High 65-99 [facility] Comment on above: Order Comment: DIFFI CULT DRAW- 10/14/2024 FASTING:YES FASTING: YES Result Comment: Fasting reference interval For someone without known diabetes, a glucose value between 100 and 125 mg/dL is consistent with prediabetes and should be confirmed with a follow-up test. Performed By: #### 1 0231 #### [facility] [address], [address] [place] [address] [employer] Operator: Daniele Carlson MD Potassium [Moles/Vol] 3.6 mmol/L Normal 3.5-5.3 [employer] Comment on above: Order Comment: DIFFI CULT DRAW- 10/14/2024 FASTING:YES FASTING: YES Performed By: #### 1 0231 #### [facility] [address] [address] [employer] Operator: Daniele Carlson MD Protein [Mass/Vol] 6.0 g/dL Low 6.1-8.1 [facility] Comment on above: Order Comment: DIFFI CULT DRAW- 10/14/2024 FASTING:YES FASTING: YES Performed By: #### 1 0231 #### [facility] [address], [address] [place] [address] [employer] Operator: Daniele Carlson MD Sodium [Moles/Vol] 143 mmol/L Normal 135-146 [facility] Comment on above: Order Comment: DIFFI CULT DRAW- 10/14/2024 FASTING:YES FASTING: YES Performed By: #### 1 0231 #### [facility] [address], [address] [place] [address] [employer] Operator: Daniele Carlson MD Urea nitrogen [Mass/Vol] 18 mg/dL Normal 7-25 [facility] Comment on above: Order Comment: DIFFI CULT DRAW- 10/14/2024 FASTING:YES FASTING: YES Performed By: #### 1 0231 #### [facility] [address], [address] [place] [address] [employer] Operator: Daniele Carlson MD Laboratory - Hematology and Cell countson 09-17-2024 HbA1c (Bld) [Mass fraction] 6.2 % [facility] No Panel Informationon 09-17 Interpretation and review of laboratory results Abnormal [facility] Basic Metabolic Panelon 08-22 Anion gap [Moles/Vol] 8.9 mmol/L Normal 6.0-15.0 [facility] Comment on above: Performed By: #### B MP, CBC ####[facility] [id number] [place] [address] [place] Calcium [Mass/Vol] 8.9 mg/dL Normal 8.6-10.3 [facility] Comment on above: Performed By: #### B MP, CBC ####[facility] [id number] [place] [address] [place] Chloride [Moles/Vol] 106 mmol/L Normal 98-107 [facility] Comment on above: Performed By: #### B MP, CBC ####[place] [address] [place] [address] [facility] CO2 [Moles/Vol] 29.7 mmol/L Normal 21.0-31.0 [facility] Comment on above: Performed By: #### B MP, CBC ####[address] [address] [facility] Creatinine [Mass/Vol] 0.97 mg/dL Normal 0.70-1.30 [facility] Comment on above: Performed By: #### B MP, CBC ####[address] [address] [place] Creatinine Clr Calc Pharmacy 83.23 Normal [facility] Comment on above: Result Comment: PERF ORMED BY:[address] [place], [place] [id number] MEDICAL DIRECTORRHONDA MCLEAN M.D. Performed By: #### B MP, CBC ####[address] [address] [place] GFR/1.73 sq M.predicted MDRD (S/P/Bld) [Vol rate/Area] mL/min/{1.73_m2} Normal [facility] Comment on above: Performed By: #### B MP, CBC ####[address] [address] [facility] Glucose [Mass/Vol] 108 mg/dL High 70-100 [facility] Comment on above: Result Comment: [place] Glucose Reference Range is dependent on time and content of last meal. Glucose of more than 200 mg/dL in a nonstressed, ambulatory subject supports the diagnosis of Diabetes Mellitus. ADA recommended reference range Performed By: #### B MP, CBC ####[address] [address] [facility] Potassium [Moles/Vol] 3.6 mmol/L Normal 3.5-5.1 [facility] Comment on above: Performed By: #### B MP, CBC ####[address] [address] [facility] Sodium [Moles/Vol] 141 mmol/L Normal 136-145 [facility] Comment on above: Performed By: #### B MP, CBC ####[address] Urea nitrogen [Mass/Vol] 20 mg/dL Normal 7-25 [facility] Comment on above: Performed By: #### B MP, CBC ####[address] Basophils Auto (Bld) [#/Vol] Ordered By: Denzel Zamora on 09-13-2024 Basophils (Bld) [#/Vol] Automated basophil count 0.0-0.[address] [facility] Basophils/100 WBC Auto (Bld) Ordered By: Denzel Zamora on 09-13-2024 Basophils/100 WBC (Bld) Automated basophil % . [facility] Calcium [Mass/volume] in Ser um or PlasmaOrdered By: Denzel Zamora on 09-13-2024 Calcium [Mass/Vol] Calcium [Mass/volume ] in Serum or Plasma 8.6-10.3 [facility] Carbon dioxide, total [Moles /volume] in Serum or PlasmaOrdered By: Denzel Zamora on 09-13-2024 CO2 [Moles/Vol] Carbon dioxide, tota l [Moles/volume] in Serum or Plasma 21.0-31.0 [facility] Chloride [Moles/volume] in S [place] or PlasmaOrdered By: Denzel Zamora on 09-13-2024 Chloride [Moles/Vol] Chloride [Moles/vol ume] in Serum or Plasma 98-107 [facility] Complete Blood Count Auto Di ffon 09-13-2024 Basophils (Bld) [#/Vol] 0.0 10*3/uL Normal 0.0-0.2 [facility] Comment on above: Result Comment: PERF ORMED BY:[address] [place], [place] [id number] MEDICAL DIRECTORRHONDA MCLEAN M.D. Performed By: #### B MP, CBC ####[place] [id number] [facility] Basophils/100 WBC (Bld) 0.4 % Normal . [facility] Comment on above: Performed By: #### B MP, CBC ####[address] Eosinophils (Bld) [#/Vol] 0.0 10*3/uL Normal 0.0-0.45 [facility] Comment on above: Performed By: #### B MP, CBC ####[address] Eosinophils/100 WBC (Bld) 0.5 % Normal . [facility] Comment on above: Performed By: #### B MP, CBC ####[address] Erythrocyte distribution width (RBC) [Ratio] 17.1 % High 12.0-14.8 [facility] Comment on above: Performed By: #### B MP, CBC ####[address] Hematocrit (Bld) [Volume fraction] 38.2 % Low 38.8-50.0 [facility] Comment on above: Performed By: #### B MP, CBC ####[address] Hemoglobin (Bld) [Mass/Vol] 12.8 g/dL Low 13.0-17.0 [facility] Comment on above: Performed By: #### B MP, CBC ####[place] [id number] [facility] Lymphocytes (Bld) [#/Vol] 1.9 10*3/uL Normal 1.00-4.8 [facility] Comment on above: Performed By: #### B MP, CBC ####[place] [id number] [facility] Lymphocytes/100 WBC (Bld) 23.2 % Normal . [facility] Comment on above: Performed By: #### B MP, CBC ####[address] MCH (RBC) [Entitic mass] 30.6 pg Normal 27.5-35.2 [facility] Comment on above: Performed By: #### B MP, CBC ####[address] MCV (RBC) [Entitic vol] 91.5 fL Normal 83.5-101 [facility] Comment on above: Performed By: #### B MP, CBC ####[address] Mean Corpuscular HGB Conc 33.4 g/dL Normal 32.5-35.6 [facility] Comment on above: Performed By: #### B MP, CBC ####[address] Monocytes (Bld) [#/Vol] 0.8 10*3/uL Normal 0.0-0.8 [facility] Comment on above: Performed By: #### B MP, CBC ####[address] Monocytes/100 WBC (Bld) 10.5 % Normal . [facility] Comment on above: Performed By: #### B MP, CBC ####[address] Neutrophils (Bld) [#/Vol] 5.2 10*3/uL Normal 1.8-7.7 [facility] Comment on above: Performed By: #### B MP, CBC ####[address] Neutrophils/100 WBC (Bld) 65.4 % Normal . [facility] Comment on above: Performed By: #### B MP, CBC ####[address] NRBC% 0.0 /100{WBC} Normal 0-0.5 [facility] Comment on above: Performed By: #### B MP, CBC ####[address] [place] [address] [facility] Platelet mean volume (Bld) [Entitic vol] 8.5 fL Normal 6.6-10.1 [facility] Comment on above: Performed By: #### B MP, CBC ####[place] [id number] [facility] Platelets (Bld) [#/Vol] 217 10*3/uL Normal 150-450 [facility] Comment on above: Performed By: #### B MP, CBC ####[address] RBC (Bld) [#/Vol] 4.18 10*6/uL Normal 3.90-5.60 [facility] Comment on above: Performed By: #### B MP, CBC ####[place] [id number] [facility] WBC (Bld) [#/Vol] 8.0 10*3/uL Normal 4.1-10.5 [facility] Comment on above: Performed By: #### B MP, CBC ####[address] Creatinine [Mass/volume] in Serum or PlasmaOrdered By: Denzel Zamora on 09-13-2024 Creatinine [Mass/Vol] Creatinine [Mass/v olume] in Serum or Plasma 0.70-1.30 [facility] Eosinophils Auto (Bld) [#/Vo l]Ordered By: Denzel Zamora on 09-13-2024 Eosinophils (Bld) [#/Vol] Automated eosinophil count 0.0-0.45 [facility] Eosinophils/100 WBC Auto (Bl d)Ordered By: Denzel Zamora on 09-13-2024 Eosinophils/100 WBC (Bld) Automated eosinophil % . [facility] Erythrocyte distribution wid th Auto (RBC) [Ratio]Ordered By: Denzel Zamora on 09-13-2024 Erythrocyte distribution width (RBC) [Ratio] Erythrocyte distribution width [Ratio] by Automated count High 12.0-14.8 [facility] Glucose [Mass/volume] in Ser um or PlasmaOrdered By: Denzel Zamora on 09-13-2024 Glucose [Mass/Vol] Glucose [Mass/volume ] in Serum or Plasma High 70-100 [facility] Hematocrit Auto (Bld) [Volum e fraction]Ordered By: Denzel Zamora on 09-13-2024 Hematocrit (Bld) [Volume fraction] Hematocrit [Volume Fraction] of Blood by Automated count Low 38.8-50.0 [facility] Hemoglobin [Mass/volume] in BloodOrdered By: Denzel Zamora on 09-13-2024 Hemoglobin (Bld) [Mass/Vol] Hemoglobin [Mass/volume] in Blood Low 13.0-17.0 [facility] Leukocytes [#/volume] correc blessing for nucleated erythrocytes in Blood by Automated counOrdered By: Denzel Zamora on 09-13-2024 WBC corrected for nucl RBC Auto (Bld) [#/Vol] Leukocytes [#/volume] corrected for nucleated erythrocytes in Blood by Automated coun 4.1-10.5 [facility] Lymphocytes Auto (Bld) [#/Vo l]Ordered By: Denzel Zamora on 09-13-2024 Lymphocytes (Bld) [#/Vol] Lymphocytes [#/volume] in Blood by Automated count 1.00-4.8 [facility] Lymphocytes/100 WBC Auto (Bl d)Ordered By: Denzel Zamora on 09-13-2024 Lymphocytes/100 WBC (Bld) Lymphocytes/100 leukocytes in Blood by Automated count . [facility] MCH Auto (RBC) [Entitic mass ]Ordered By: Denzel Zamora on 09-13-2024 MCH (RBC) [Entitic mass] MCH [Entitic mass] by Automated count 27.5-35.2 [facility] MCHC Auto (RBC) [Mass/Vol]Or dered By: Denzel Zamora on 09-13-2024 MCHC (RBC) [Mass/Vol] MCHC [Mass/volume] by Automated count 32.5-35.6 [facility] MCV Auto (RBC) [Entitic vol] Ordered By: Denzel Zamora on 09-13-2024 MCV (RBC) [Entitic vol] MCV [Entitic volume] by Automated count 83.5-101 [facility] Monocytes Auto (Bld) [#/Vol] Ordered By: Denzel Zamora on 09-13-2024 Monocytes (Bld) [#/Vol] Automated blood monocyte count 0.0-0.8 [facility] Monocytes/100 WBC Auto (Bld) Ordered By: Denzel Zamora on 09-13-2024 Monocytes/100 WBC (Bld) Automated monocyte % . [facility] Neutrophils Auto (Bld) [#/Vo l]Ordered By: Denzel Zamora on 09-13-2024 Neutrophils (Bld) [#/Vol] Neutrophils [#/volume] in Blood by Automated count 1.8-7.7 [facility] Neutrophils/100 WBC Auto (Bl d)Ordered By: Denzel Zamora on 09-13-2024 Neutrophils/100 WBC (Bld) Automated neutrophil % . [facility] No Panel InformationOrdered By: Denzel Zamora on 09-13-2024 > 60.0 mL/Min [facility] 83.23 [facility] Nucleated erythrocytes [Pres ence] in Blood by Automated countOrdered By: Denzel Zamora on 09-13-2024 Nucleated RBC Auto Ql (Bld) Nucleated erythrocytes [Presence] in Blood by Automated count 0-0.5 [facility] Platelet mean volume Auto (B ld) [Entitic vol]Ordered By: Denzel Zamora on 09-13-2024 Platelet mean volume (Bld) [Entitic vol] Platelet mean volume [Entitic volume] in Blood by Automated count 6.6-10.1 [facility] Platelets Auto (Bld) [#/Vol] Ordered By: Denzel Zamora on 09-13-2024 Platelets (Bld) [#/Vol] Platelets [#/volume] in Blood by Automated count 150-450 [facility] Potassium [Moles/volume] in Serum or PlasmaOrdered By: Denzel Zamora on 09-13-2024 Potassium [Moles/Vol] Potassium [Moles/v olume] in Serum or Plasma 3.5-5.1 [facility] RBC Auto (Bld) [#/Vol]Ordere d By: Denzel Zamora on 09-13-2024 RBC (Bld) [#/Vol] Erythrocytes [#/volu me] in Blood by Automated count 3.90-5.60 [facility] Serum or plasma anion gap de terminationOrdered By: Denzel aZmora on 09-13-2024 Anion gap [Moles/Vol] Serum or plasma an ion gap determination 6.0-15.0 [facility] Sodium [Moles/volume] in Ser um or PlasmaOrdered By: Denzel Zamora on 09-13-2024 Sodium [Moles/Vol] Sodium [Moles/volume ] in Serum or Plasma 136-145 [facility] Urea nitrogen [Mass/volume] in Serum or PlasmaOrdered By: Denzel Zamora on 09-13-2024 Urea nitrogen [Mass/Vol] Urea nitrogen [Mass/volume] in Serum or Plasma 7-25 [facility] WBC Auto (Bld) [#/Vol]Ordere d By: Denzel Zamora on 09-13-2024 WBC (Bld) [#/Vol] Leukocytes [#/volume ] in Blood by Automated count 4.1-10.5 [facility] Basic Metabolic Panelon 08-22 Anion gap [Moles/Vol] 10.9 mmol/L Normal 6.0-15.0 [facility] Comment on above: Performed By: #### C BC, BMP ####[facility] Calcium [Mass/Vol] 8.9 mg/dL Normal 8.6-10.3 [facility] Comment on above: Performed By: #### C BC, BMP ####[place] [address] [place] [id number] [facility] Chloride [Moles/Vol] 107 mmol/L Normal 98-107 [facility] Comment on above: Performed By: #### C BC, BMP ####[facility]1111 [place] [id number] [facility] CO2 [Moles/Vol] 27.2 mmol/L Normal 21.0-31.0 [facility] Comment on above: Performed By: #### C BC, BMP ####[facility]1111 [place] [id number] [facility] Creatinine [Mass/Vol] 1.10 mg/dL Normal 0.70-1.30 [facility] Comment on above: Performed By: #### C BC, BMP ####[place] [id number] [facility] Creatinine Clr Calc Pharmacy 73.39 Normal [facility] Comment on above: Result Comment: PERF ORMED BY:[address] [place], [place] [phone] MEDICAL DIRECTORRHONDA MCLEAN M.D. Performed By: #### C VERÓNICA, BMP ####[place] [id number] [facility] GFR/1.73 sq M.predicted MDRD (S/P/Bld) [Vol rate/Area] mL/min/{1.73_m2} Normal [facility] Comment on above: Performed By: #### C VERÓNICA, BMP ####[address] Glucose [Mass/Vol] 131 mg/dL High 70-100 [facility] Comment on above: Result Comment: [place] Glucose Reference Range is dependent on time and content of last meal. Glucose of more than 200 mg/dL in a nonstressed, ambulatory subject supports the diagnosis of Diabetes Mellitus. ADA recommended reference range Performed By: #### C BC, BMP ####[address] Potassium [Moles/Vol] 4.1 mmol/L Normal 3.5-5.1 [facility] Comment on above: Result Comment: Hemo lysis is present at a level that could interfere with the result. Contact lab if redraw is required Performed By: #### C BC, BMP ####[place] [id number] [facility] Sodium [Moles/Vol] 141 mmol/L Normal 136-145 [facility] Comment on above: Performed By: #### C BC, BMP ####[place] [id number] [facility] Urea nitrogen [Mass/Vol] 22 mg/dL Normal 7-25 [facility] Comment on above: Performed By: #### C VERÓNICA, BMP ####[address] Complete Blood Count Auto Di ffon 09-12-2024 Basophils (Bld) [#/Vol] 0.1 10*3/uL Normal 0.0-0.2 [facility] Comment on above: Result Comment: PERF ORMED BY:[address] [place], [place] [phone] MEDICAL DIRECTORRHONDA MCLEAN M.D. Performed By: #### C VERÓNICA, BMP ####[address] Basophils/100 WBC (Bld) 0.5 % Normal . [facility] Comment on above: Performed By: #### C VERÓNICA, BMP ####[address] Eosinophils (Bld) [#/Vol] 0.0 10*3/uL Normal 0.0-0.45 [facility] Comment on above: Performed By: #### C VERÓNICA, BMP ####[address] Eosinophils/100 WBC (Bld) 0.1 % Normal . [facility] Comment on above: Performed By: #### C VERÓNICA, BMP ####[address] Erythrocyte distribution width (RBC) [Ratio] 16.8 % High 12.0-14.8 [facility] Comment on above: Performed By: #### C VERÓNICA, BMP ####[address] Hematocrit (Bld) [Volume fraction] 39.6 % Normal 38.8-50.0 [facility] Comment on above: Performed By: #### C VERÓNICA, BMP ####[address] Hemoglobin (Bld) [Mass/Vol] 13.2 g/dL Normal 13.0-17.0 [facility] Comment on above: Performed By: #### C VERÓNICA, BMP ####[address] Lymphocytes (Bld) [#/Vol] 0.7 10*3/uL Low 1.00-4.8 [facility] Comment on above: Performed By: #### C VERÓNICA, BMP ####[address] Lymphocytes/100 WBC (Bld) 6.7 % Normal . [facility] Comment on above: Performed By: #### C VERÓNICA, BMP ####[address] MCH (RBC) [Entitic mass] 30.5 pg Normal 27.5-35.2 [facility] Comment on above: Performed By: #### C VERÓNICA, BMP ####[address] MCV (RBC) [Entitic vol] 91.4 fL Normal 83.5-101 [facility] Comment on above: Performed By: #### C VERÓNICA, BMP ####[address] Mean Corpuscular HGB Conc 33.4 g/dL Normal 32.5-35.6 [facility] Comment on above: Performed By: #### C VERÓNICA, BMP ####[address] Monocytes (Bld) [#/Vol] 1.0 10*3/uL High 0.0-0.8 [facility] Comment on above: Performed By: #### C VERÓNICA, BMP ####[address] Monocytes/100 WBC (Bld) 9.6 % Normal . [facility] Comment on above: Performed By: #### C VERÓNICA, BMP ####[address] Neutrophils (Bld) [#/Vol] 8.9 10*3/uL High 1.8-7.7 [facility] Comment on above: Performed By: #### Daniella SANCHES, BMP ####[address] Neutrophils/100 WBC (Bld) 83.1 % Normal . [facility] Comment on above: Performed By: #### C VERÓNICA, BMP ####[address] NRBC% 0.1 /100{WBC} Normal 0-0.5 [facility] Comment on above: Performed By: #### C VERÓNICA, BMP ####[address] Platelet mean volume (Bld) [Entitic vol] 8.3 fL Normal 6.6-10.1 [facility] Comment on above: Performed By: #### C VERÓNICA, BMP ####[address] Platelets (Bld) [#/Vol] 208 10*3/uL Normal 150-450 [facility] Comment on above: Performed By: #### C VERÓNICA, BMP ####[address] RBC (Bld) [#/Vol] 4.33 10*6/uL Normal 3.90-5.60 [facility] Comment on above: Performed By: #### Daniella SANCHES, BMP ####[address] WBC (Bld) [#/Vol] 10.7 10*3/uL High 4.1-10.5 [facility] Comment on above: Performed By: #### Daniella SANCHES, BMP ####[address] Acanthocytes [Presence] in B lood by Light microscopyOrdered By: Joseline Barrera on 09-11-2024 Acanthocytes LM Ql (Bld) Acanthocytes [Presence] in Blood by Light microscopy [facility] Anisocytosis LM Ql (Bld)Orde red By: Joseline Barrera on 09-11-2024 Anisocytosis Ql (Bld) Anisocytosis [Pres ence] in Blood by Light microscopy [facility] B-Type Natriuretic Peptideon 09-11-2024 Natriuretic peptide B (Bld) [Mass/Vol] 72.0 pg/mL Normal 5-100 [facility] Comment on above: Result Comment: PERF ORMED BY:[address] [place], [place] [phone] MEDICAL DIRECTORRHONDA MCLEAN M.D. Performed By: #### B MP, BNP, DIFF CBC, MG, HS TROP ####[place] [id number] [facility] Basic Metabolic Panelon 08-22 Anion gap [Moles/Vol] 10.9 mmol/L Normal 6.0-15.0 Th e [facility] Comment on above: Order Comment: NOTIF IED SUDHAKAR KATHE 1ST Specimen hemolyzed, redraw requested Performed By: #### B MP, BNP, DIFF CBC, MG, HS TROP ####[place] [id number] [facility] Calcium [Mass/Vol] 9.2 mg/dL Normal 8.6-10.3 [facility] Comment on above: Order Comment: NOTIF IED SUDHAKAR KATHE 1ST Specimen hemolyzed, redraw requested Performed By: #### B MP, BNP, DIFF CBC, MG, HS TROP ####[place] [id number] [facility] Chloride [Moles/Vol] 104 mmol/L Normal 98-107 [facility] Comment on above: Order Comment: NOTIF IED SUDHAKAR KATHE 1ST Specimen hemolyzed, redraw requested Performed By: #### B MP, BNP, DIFF CBC, MG, HS TROP ####[place] [id number] [facility] CO2 [Moles/Vol] 30.9 mmol/L Normal 21.0-31.0 [facility] Comment on above: Order Comment: NOTIF IED SUDHAKAR KATHE 1ST Specimen hemolyzed, redraw requested Performed By: #### B MP, BNP, DIFF CBC, MG, HS TROP ####[place] [address] [place] [address] [facility] Creatinine [Mass/Vol] 1.49 mg/dL High 0.70-1.30 [facility] Comment on above: Order Comment: NOTIF IED SUDHAKAR ARCHULETA 1ST Specimen hemolyzed, redraw requested Performed By: #### B MP, BNP, DIFF CBC, MG, HS TROP ####[place] [id number] [facility] Creatinine Clr Calc Pharmacy 54.21 Normal [facility] Comment on above: Order Comment: NOTIF IED SUDHAKAR ARCHULETA 1ST Specimen hemolyzed, redraw requested Result Comment: PERF ORMED BY:[address] [place], [place] [phone] MEDICAL DIRECTORRHONDA MCLEAN M.D. Performed By: #### B MP, BNP, DIFF CBC, MG, HS TROP ####[address] [address] [facility] Estimated GFR 47.149 mL/Min Normal [facility] Comment on above: Order Comment: NOTIF SOD SUDHAKAR ARCHULETA 1ST Specimen hemolyzed, redraw requested Performed By: #### B MP, BNP, DIFF CBC, MG, HS TROP ####[place] [id number] [facility] Glucose [Mass/Vol] 133 mg/dL High 70-100 [facility] Comment on above: Order Comment: NOTIF IED SUDHAKAR ARCHULETA 1ST Specimen hemolyzed, redraw requested Result Comment: [place] Glucose Reference Range is dependent on time and content of last meal. Glucose of more than 200 mg/dL in a nonstressed, ambulatory subject supports the diagnosis of Diabetes Mellitus. ADA recommended reference range Performed By: #### B MP, BNP, DIFF CBC, MG, HS TROP ####[address] [address] [facility] Potassium [Moles/Vol] 3.8 mmol/L Normal 3.5-5.1 [facility] Comment on above: Order Comment: NOTIF IED SUDHAKAR ARCHULETA 1ST Specimen hemolyzed, redraw requested Performed By: #### B MP, BNP, DIFF CBC, MG, HS TROP ####[place] [address] Sodium [Moles/Vol] 142 mmol/L Normal 136-145 [facility] Comment on above: Order Comment: NOTIF IED SUDHAKAR ARCHULETA 1ST Specimen hemolyzed, redraw requested Performed By: #### B MP, BNP, DIFF CBC, MG, HS TROP ####[address] Urea nitrogen [Mass/Vol] 29 mg/dL High 7-25 [facility] Comment on above: Order Comment: NOTIF IED SUDHAKAR ARCHULETA 1ST Specimen hemolyzed, redraw requested Performed By: #### B MP, BNP, DIFF CBC, MG, HS TROP ####[address] Basophils Auto (Bld) [#/Vol] Ordered By: Joseline Barrera on 09-11-2024 Basophils (Bld) [#/Vol] Automated basophil count [facility] Basophils/100 WBC Auto (Bld) Ordered By: Joseline Barrera on 09-11-2024 Basophils/100 WBC (Bld) Automated basophil % [facility] C reactive protein [Mass/vol ume] in Serum or PlasmaOrdered By: Jamel Packer on 09-11-2024 CRP [Mass/Vol] C reactive protein [Mass/volume] in Serum or Plasma High 0.0-0.5 [facility] C-Reactive Proteinon 025 C-Reactive Protein 0.6 mg/dL High 0.0-0.5 [facility] Comment on above: Result Comment: PERF ORMED BY:[address] [place], [place] [phone] MEDICAL DIRECTORRHONDA MCLEAN M.D. Performed By: #### E SR, CRP ####[place] [id number] [facility] COVID Cepheid NegativeOrdere d By: Joseline Barrera on 09-11-2024 SARS-CoV-2 (COVID-19) RNA JAYDE+probe Ql (Unsp spec) COVID Cepheid Negative [facility] COVID-19 / Flu A/B / RSV PCR on 09-11-2024 SARS-CoV-2 (COVID-19) RNA JAYDE+probe Ql (Unsp spec) Normal [facility] Comment on above: Performed By: #### C OVID19 FLU RSV, CEPHEID NEG ####[facility] [address] [place] [address] [facility] Calcium [Mass/volume] in Ser um or PlasmaOrdered By: Joseline Barrera on 09-11-2024 Calcium [Mass/Vol] Calcium [Mass/volume ] in Serum or Plasma 8.6-10.3 [facility] Carbon dioxide, total [Moles /volume] in Serum or PlasmaOrdered By: Joseline Barrera on 09-11-2024 CO2 [Moles/Vol] Carbon dioxide, tota l [Moles/volume] in Serum or Plasma 21.0-31.0 [facility] Cepheid COVID PCR Negativeon 09-11-2024 SARS-CoV-2 (COVID-19) RNA JAYDE+probe Ql (Unsp spec) Negative Normal Negative [facility] Comment on above: Result Comment: This is a duplicate Cepheid Xpert Xpress CoV-2/Flu/RSV Plus RNA by RT-PCR result to be used for statistical tracking purpose only.PERFORMED BY:[address] [place], [place] [phone] MEDICAL DIRECTORRHONDA MCLEAN M.D. Performed By: #### C OVID19 FLU RSV, CEPHEID NEG ####[place] [address] [place] [address] [place] Chloride [Moles/volume] in S [place] or PlasmaOrdered By: Joseline Barrera on 09-11-2024 Chloride [Moles/Vol] Chloride [Moles/vol ume] in Serum or Plasma 98-107 [facility] Creatinine [Mass/volume] in Serum or PlasmaOrdered By: Joseline Barrera on 09-11-2024 Creatinine [Mass/Vol] Creatinine [Mass/v olume] in Serum or Plasma High 0.70-1.30 [facility] Diff and CBCon 09-11-2024 Acanthocytes Slight Normal [facility] Comment on above: Performed By: #### B MP, BNP, DIFF CBC, MG, HS TROP ####[address] Anisocytosis Ql (Bld) Slight Normal [facility] Comment on above: Performed By: #### B MP, BNP, DIFF CBC, MG, HS TROP ####[address] Erythrocyte distribution width (RBC) [Ratio] 17.1 % High 12.0-14.8 [facility] Comment on above: Performed By: #### B MP, BNP, DIFF CBC, MG, HS TROP ####[address] Hematocrit (Bld) [Volume fraction] 40.0 % Normal 38.8-50.0 [facility] Comment on above: Performed By: #### B MP, BNP, DIFF CBC, MG, HS TROP ####[address] Hemoglobin (Bld) [Mass/Vol] 13.4 g/dL Normal 13.0-17.0 [facility] Comment on above: Performed By: #### B MP, BNP, DIFF CBC, MG, HS TROP ####[address] Lymphocytes/100 WBC (Bld) 24 % Normal 18-42 [facility] Comment on above: Performed By: #### B MP, BNP, DIFF CBC, MG, HS TROP ####[address] MCH (RBC) [Entitic mass] 30.8 pg Normal 27.5-35.2 [facility] Comment on above: Performed By: #### B MP, BNP, DIFF CBC, MG, HS TROP ####[address] MCV (RBC) [Entitic vol] 92.2 fL Normal 83.5-101 [facility] Comment on above: Performed By: #### B MP, BNP, DIFF CBC, MG, HS TROP ####[address] Mean Corpuscular HGB Conc 33.4 g/dL Normal 32.5-35.6 [facility] Comment on above: Performed By: #### B MP, BNP, DIFF CBC, MG, HS TROP ####[address] Metamyelocytes 1 % High 0-0 [facility] Comment on above: Performed By: #### B MP, BNP, DIFF CBC, MG, HS TROP ####[address] Monocytes/100 WBC (Bld) 17.57 % Normal 0.00-20.00 [facility] Comment on above: Performed By: #### B MP, BNP, DIFF CBC, MG, HS TROP ####[address] Monocytes/100 WBC (Bld) 14 % High 2-11 [facility] Comment on above: Performed By: #### B MP, BNP, DIFF CBC, MG, HS TROP ####[address] Platelet Estimate Normal Normal Normal [facility] Comment on above: Performed By: #### B MP, BNP, DIFF CBC, MG, HS TROP ####[place] [id number] [facility] Platelet mean volume (Bld) [Entitic vol] 9.2 fL Normal 6.6-10.1 [facility] Comment on above: Performed By: #### B MP, BNP, DIFF CBC, MG, HS TROP ####[place] [id number] [facility] Platelet Morphology Normal Normal Normal [facility] Comment on above: Result Comment: PERF ORMED BY:[address] [place], [place] [phone] MEDICAL DIRECTORRHONDA MCLEAN M.D. Performed By: #### B MP, BNP, DIFF CBC, MG, HS TROP ####[place] [address] Platelets (Bld) [#/Vol] 233 10*3/uL Normal 150-450 [facility] Comment on above: Performed By: #### B MP, BNP, DIFF CBC, MG, HS TROP ####[place] [address] RBC (Bld) [#/Vol] 4.34 10*6/uL Normal 3.90-5.60 [facility] Comment on above: Performed By: #### B MP, BNP, DIFF CBC, MG, HS TROP ####[address] Segmented neutrophils/100 WBC (Bld) 61 % Normal 50-70 [facility] Comment on above: Performed By: #### B MP, BNP, DIFF CBC, MG, HS TROP ####[address] WBC (Bld) [#/Vol] 7.8 10*3/uL Normal 4.1-10.5 [facility] Comment on above: Performed By: #### B MP, BNP, DIFF CBC, MG, HS TROP ####[address] ECG 12 lead ECGon 09-11-2024 ECG 12 lead ECG Normal [facility] Eosinophils Auto (Bld) [#/Vo l]Ordered By: Joseline Barrera on 09-11-2024 Eosinophils (Bld) [#/Vol] Automated eosinophil count [facility] Eosinophils/100 WBC Auto (Bl d)Ordered By: Joseline Barrera on 09-11-2024 Eosinophils/100 WBC (Bld) Automated eosinophil % [facility] Erythrocyte Sedimentation Ra kimberlee 09-11-2024 ESR (Bld) [Velocity] 16 mm/h Normal 0-19 [facility] Comment on above: Result Comment: PERF ORMED BY:[facility]ORESITAMagdalenaRaul[place], [place] [id number] MEDICAL DIRECTORRHONDA MCLEAN M.D. Performed By: #### E SR, CRP ####[facility] [address] [place] [address] [facility] Erythrocyte distribution wid th Auto (RBC) [Ratio]Ordered By: Joseline Barrera on 09-11-2024 Erythrocyte distribution width (RBC) [Ratio] Erythrocyte distribution width [Ratio] by Automated count High 12.0-14.8 [facility] Erythrocyte morphology findi ng [Identifier] in BloodOrdered By: Joseline Barrera on 09-11-2024 RBC morphology finding Nom (Bld) RBC morphology [facility] Erythrocyte sedimentation ra te by Photometric methodOrdered By: Jamel Packer on 09-11-2024 ESR Photometric method (Bld) [Velocity] Erythrocyte sedimentation rate by Photometric method 0-19 [facility] Glucose [Mass/volume] in Ser um or PlasmaOrdered By: Joseline Barrera on 09-11-2024 Glucose [Mass/Vol] Glucose [Mass/volume ] in Serum or Plasma High 70-100 [facility] Hematocrit Auto (Bld) [Volum e fraction]Ordered By: Joseline Barrera on 09-11-2024 Hematocrit (Bld) [Volume fraction] Hematocrit [Volume Fraction] of Blood by Automated count 38.8-50.0 [facility] Hemoglobin [Mass/volume] in BloodOrdered By: Joseline Barrera on 09-11-2024 Hemoglobin (Bld) [Mass/Vol] Hemoglobin [Mass/volume] in Blood 13.0-17.0 [facility] Leukocytes [#/volume] correc blessing for nucleated erythrocytes in Blood by Automated counOrdered By: Joseline Barrera on 09-11-2024 WBC corrected for nucl RBC Auto (Bld) [#/Vol] Leukocytes [#/volume] corrected for nucleated erythrocytes in Blood by Automated coun 4.1-10.5 [facility] Lymphocytes Auto (Bld) [#/Vo l]Ordered By: Joseline Barrera on 09-11-2024 Lymphocytes (Bld) [#/Vol] Lymphocytes [#/volume] in Blood by Automated count [facility] Lymphocytes/100 WBC Auto (Bl d)Ordered By: Joseline Barrera on 09-11-2024 Lymphocytes/100 WBC (Bld) Lymphocytes/100 leukocytes in Blood by Automated count [facility] Lymphocytes/100 WBC Manual c nt (Bld)Ordered By: Joseline Barrera on 09-11-2024 Lymphocytes/100 WBC (Bld) Lymphocytes/100 leukocytes in Blood by Manual count 18-42 [facility] MCH Auto (RBC) [Entitic mass ]Ordered By: Joseline Barrera on 09-11-2024 MCH (RBC) [Entitic mass] MCH [Entitic mass] by Automated count 27.5-35.2 [facility] MCHC Auto (RBC) [Mass/Vol]Or dered By: Joseline Barrera on 09-11-2024 MCHC (RBC) [Mass/Vol] MCHC [Mass/volume] by Automated count 32.5-35.6 [facility] MCV Auto (RBC) [Entitic vol] Ordered By: Joseline Barrera on 09-11-2024 MCV (RBC) [Entitic vol] MCV [Entitic volume] by Automated count 83.5-101 [facility] Magnesiumon 09-11-2024 Magnesium [Mass/Vol] 2.1 mg/dL Normal 1.9-2.7 [facility] Comment on above: Order Comment: NOTIF IED SUDHAKAR ARCHULETA 1ST Specimen hemolyzed, redraw requested Result Comment: PERF ORMED BY:[place] [address] [place], [place] [phone] MEDICAL DIRECTORRHONDA MCLEAN M.D. Performed By: #### B MP, BNP, DIFF CBC, MG, HS TROP ####[facility] [place] [id number] [facility] Magnesium [Mass/volume] in [place] or PlasmaOrdered By: Joseline Barrera on 09-11-2024 Magnesium [Mass/Vol] Magnesium [Mass/vol ume] in Serum or Plasma 1.9-2.7 [facility] Metamyelocytes/100 WBC Manua l cnt (Bld)Ordered By: Joseline Barrera on 09-11-2024 Metamyelocytes/100 WBC (Bld) Metamyelocytes/100 leukocytes in Blood by Manual count High 0-0 [facility] Monocyte distribution width [Entitic volume] in Blood by AutomatedOrdered By: Joseline Barrera on 09-11-2024 Monocyte distribution width Auto (Bld) [Entitic vol] Monocyte distribution width [Entitic volume] in Blood by Automated 0.00-20.00 [facility] Monocytes Auto (Bld) [#/Vol] Ordered By: Joseline Barrera on 09-11-2024 Monocytes (Bld) [#/Vol] Automated blood monocyte count [facility] Monocytes/100 WBC Auto (Bld) Ordered By: Joseline Barrera on 09-11-2024 Monocytes/100 WBC (Bld) Automated monocyte % [facility] Monocytes/100 WBC Manual cnt (Bld)Ordered By: Joseline Barrera on 09-11-2024 Monocytes/100 WBC (Bld) Monocytes/100 leukocytes in Blood by Manual count High 2-11 [facility] Natriuretic peptide B [Mass/ Vol]Ordered By: Joseline Barrera on 09-11-2024 Natriuretic peptide B (Bld) [Mass/Vol] BNP ser/plas 5-100 [facility] Neutrophils Auto (Bld) [#/Vo l]Ordered By: Joseline Barrera on 09-11-2024 Neutrophils (Bld) [#/Vol] Neutrophils [#/volume] in Blood by Automated count [facility] Neutrophils/100 WBC Auto (Bl d)Ordered By: Joseline Barrera on 09-11-2024 Neutrophils/100 WBC (Bld) Automated neutrophil % [facility] No Panel InformationOrdered By: Joseline Barrera on 09-11-2024 47.149 mL/Min [facility] 54.21 [facility] Nucleated erythrocytes [Pres ence] in Blood by Automated countOrdered By: Joseline Barrera on 09-11-2024 Nucleated RBC Auto Ql (Bld) Nucleated erythrocytes [Presence] in Blood by Automated count [facility] Platelet adequacy [Presence] in Blood by Light microscopyOrdered By: Joseline Barrera on 09-11-2024 Platelets LM Ql (Bld) Platelet adequacy [Presence] in Blood by Light microscopy Normal [facility] Platelet mean volume Auto (B ld) [Entitic vol]Ordered By: Joseline Barrera on 09-11-2024 Platelet mean volume (Bld) [Entitic vol] Platelet mean volume [Entitic volume] in Blood by Automated count 6.6-10.1 [facility] Platelet morphology finding [Identifier] in BloodOrdered By: Joseline Barrera on 09-11-2024 Platelet morphology finding Nom (Bld) Platelet morphology finding [Identifier] in Blood Normal [facility] Platelets Auto (Bld) [#/Vol] Ordered By: Joseline Barrera on 09-11-2024 Platelets (Bld) [#/Vol] Platelets [#/volume] in Blood by Automated count 150-450 [facility] Potassium [Moles/volume] in Serum or PlasmaOrdered By: Joseline Barrera on 09-11-2024 Potassium [Moles/Vol] Potassium [Moles/v olume] in Serum or Plasma 3.5-5.1 [facility] RBC Auto (Bld) [#/Vol]Ordere d By: Joseline Barrera on 09-11-2024 RBC (Bld) [#/Vol] Erythrocytes [#/volu me] in Blood by Automated count 3.90-5.60 [facility] Segmented neutrophils/100 WB C Manual cnt (Bld)Ordered By: Joseline Barrera on 09-11-2024 Segmented neutrophils/100 WBC (Bld) Manual blood segmented neutrophils/100 leukocytes 50-70 [facility] Serum or plasma anion gap de terminationOrdered By: Joseline Barrera on 09-11-2024 Anion gap [Moles/Vol] Serum or plasma an ion gap determination 6.0-15.0 [facility] Sodium [Moles/volume] in Ser um or PlasmaOrdered By: Joseline Barrera on 09-11-2024 Sodium [Moles/Vol] Sodium [Moles/volume ] in Serum or Plasma 136-145 [facility] Troponin I High Sensitivityo n 09-11-2024 Troponin I High Sensitivity 9 Normal 0-20 [facility] Comment on above: Result Comment: The Troponin units of report have been changed to meet the Chest Pain Accreditation requirement, element EC5.M1l2. Troponin units are changed from pg/ml to ng/L. Also, the decimal is removed and results are in whole numbers.PERFORMED BY:[facility] [place], [place] [phone] MEDICAL DIRECTORRHONDA MCLEAN M.D. Performed By: #### B MP, BNP, DIFF CBC, MG, HS TROP ####[facility] [address] [place] [address] [facility] Troponin I.cardiac [Mass/vol ume] in Serum or Plasma by Detection limit <= 0.01 ng/Ordered By: Joseline Barrera on 09-11-2024 Troponin I.cardiac DL <= 0.01 ng/mL [Mass/Vol] Troponin I.cardiac [Mass/volume] in Serum or Plasma by Detection limit <= 0.01 ng/ 0-20 [facility] Urea nitrogen [Mass/volume] in Serum or PlasmaOrdered By: Joseline Barrera on 09-11-2024 Urea nitrogen [Mass/Vol] Urea nitrogen [Mass/volume] in Serum or Plasma High 03-14 [facility] WBC Auto (Bld) [#/Vol]Ordere d By: Joseline Barrera on 09-11-2024 WBC (Bld) [#/Vol] Leukocytes [#/volume ] in Blood by Automated count 4.1-10.5 [facility] X-ray reportOrdered By: Narendra Mock on 09-11-2024 Study report [facility] XR chest 2V*on 09-11-2024 XR chest 2V* Normal [facility] Alanine aminotransferase [En zymatic activity/volume] in Serum or PlasmaOrdered By: Kaz Prescott on 07-31-2024 ALT [Catalytic activity/Vol] Alanine aminotransferase [Enzymatic activity/volume] in Serum or Plasma [facility] Albumin [Mass/volume] in Ser um or Plasma by Bromocresol green (BCG) dye binding methoOrdered By: Kaz Prescott on 07-31-2024 Albumin BCG dye [Mass/Vol] Albumin [Mass/volume] in Serum or Plasma by Bromocresol green (BCG) dye binding metho Low 3.5-5.7 [facility] Alkaline phosphatase [Enzyma tic activity/volume] in Serum or PlasmaOrdered By: Kaz Prescott on 07-31-2024 ALP [Catalytic activity/Vol] Alkaline phosphatase [Enzymatic activity/volume] in Serum or Plasma 34-104 [facility] Aspartate aminotransferase [ Enzymatic activity/volume] in Serum or PlasmaOrdered By: Kaz Prescott on 07-31-2024 AST [Catalytic activity/Vol] Aspartate aminotransferase [Enzymatic activity/volume] in Serum or Plasma 13-39 [facility] Basophils Auto (Bld) [#/Vol] Ordered By: Kaz Prescott on 07-31-2024 Basophils (Bld) [#/Vol] Automated basophil count 0.0-0.[address] [facility] Basophils/100 WBC Auto (Bld) Ordered By: Kaz Prescott on 07-31-2024 Basophils/100 WBC (Bld) Automated basophil % . [facility] Bilirubin.total [Mass/volume ] in Serum or PlasmaOrdered By: Kaz Prescott on 07-31-2024 Bilirubin [Mass/Vol] Bilirubin.total [Mass/volume] in Serum or Plasma 0.3-1.0 [facility] Calcium [Mass/volume] in Ser um or PlasmaOrdered By: Kaz Prescott on 07-31-2024 Calcium [Mass/Vol] Calcium [Mass/volume ] in Serum or Plasma 8.6-10.3 [facility] Carbon dioxide, total [Moles /volume] in Serum or PlasmaOrdered By: Kaz Prescott on 07-31-2024 CO2 [Moles/Vol] Carbon dioxide, tota l [Moles/volume] in Serum or Plasma High 21.0-31.0 [facility] Chloride [Moles/volume] in [place] or PlasmaOrdered By: Kaz Prescott on 07-31-2024 Chloride [Moles/Vol] Chloride [Moles/vol ume] in Serum or Plasma 98-107 [facility] Complete Blood Count Auto Di ffon 07-31-2024 Basophils (Bld) [#/Vol] 0.1 10*3/uL Normal 0.0-0.2 [facility] Comment on above: Result Comment: PERF ORMED BY:[place] [address] [place], [place] [phone] MEDICAL DIRECTORRHONDA MCLEAN M.D. Performed By: #### C BC MG, CMP ####[address] Basophils/100 WBC (Bld) 0.8 % Normal . [facility] Comment on above: Performed By: #### C BC MG, CMP ####[address] Eosinophils (Bld) [#/Vol] 0.4 10*3/uL Normal 0.0-0.45 [facility] Comment on above: Performed By: #### C BC MG, CMP ####[address] Eosinophils/100 WBC (Bld) 3.7 % Normal . [facility] Comment on above: Performed By: #### C BC MG, CMP ####[address] Erythrocyte distribution width (RBC) [Ratio] 15.0 % High 12.0-14.8 [facility] Comment on above: Performed By: #### C BC MG, CMP ####[address] Hematocrit (Bld) [Volume fraction] 38.6 % Low 38.8-50.0 [facility] Comment on above: Performed By: #### C BC MG, CMP ####[address] Hemoglobin (Bld) [Mass/Vol] 13.0 g/dL Normal 13.0-17.0 [facility] Comment on above: Performed By: #### C BC MG, CMP ####[address] Lymphocytes (Bld) [#/Vol] 2.1 10*3/uL Normal 1.00-4.8 [facility] Comment on above: Performed By: #### C BC MG, CMP ####[address] Lymphocytes/100 WBC (Bld) 21.4 % Normal . [facility] Comment on above: Performed By: #### C BC MG, CMP ####[address] MCH (RBC) [Entitic mass] 30.6 pg Normal 27.5-35.2 [facility] Comment on above: Performed By: #### C BC MG, CMP ####[address] MCV (RBC) [Entitic vol] 91.1 fL Normal 83.5-101 [facility] Comment on above: Performed By: #### C VERÓNICA MG, CMP ####[address] Mean Corpuscular HGB Conc 33.6 g/dL Normal 32.5-35.6 [facility] Comment on above: Performed By: #### C BC MG, CMP ####[address] Monocytes (Bld) [#/Vol] 1.1 10*3/uL High 0.0-0.8 [facility] Comment on above: Performed By: #### C BC MG, CMP ####[address] Monocytes/100 WBC (Bld) 10.8 % Normal . [facility] Comment on above: Performed By: #### C BC MG, CMP ####[address] Neutrophils (Bld) [#/Vol] 6.2 10*3/uL Normal 1.8-7.7 [facility] Comment on above: Performed By: #### C BC MG, CMP ####[address] Neutrophils/100 WBC (Bld) 63.3 % Normal . [facility] Comment on above: Performed By: #### C BC MG, CMP ####[address] NRBC% 0.3 /100{WBC} Normal 0-0.5 [facility] Comment on above: Performed By: #### C BC, MG, CMP ####[address] Platelet mean volume (Bld) [Entitic vol] 8.9 fL Normal 6.6-10.1 [facility] Comment on above: Performed By: #### C BC, MG, CMP ####[address] Platelets (Bld) [#/Vol] 227 10*3/uL Normal 150-450 [facility] Comment on above: Performed By: #### C BC, MG, CMP ####[address] RBC (Bld) [#/Vol] 4.24 10*6/uL Normal 3.90-5.60 [facility] Comment on above: Performed By: #### C BC, MG, CMP ####[address] WBC (Bld) [#/Vol] 9.8 10*3/uL Normal 4.1-10.5 [facility] Comment on above: Performed By: #### C BC, MG, CMP ####[address] Comprehensive Metabolic Pane rc 07-31-2024 Albumin [Mass/Vol] 3.1 g/dL Low 3.5-5.7 [facility] Comment on above: Performed By: #### C BC, MG, CMP ####[address] Albumin/Globulin [Mass ratio] 1.2 {ratio} Normal [facility] Comment on above: Performed By: #### C BC, MG, CMP ####[address] ALP [Catalytic activity/Vol] 49 U/L Normal 34-104 [facility] Comment on above: Performed By: #### C BC, MG, CMP ####[place] [id number] [facility] ALT [Catalytic activity/Vol] 18 U/L Normal 7-52 [facility] Comment on above: Performed By: #### C BC, MG, CMP ####[place] [id number] [facility] Anion gap [Moles/Vol] 10.4 mmol/L Normal 6.0-15.0 [facility] Comment on above: Performed By: #### C BC, MG, CMP ####[address] AST [Catalytic activity/Vol] 16 U/L Normal 13-39 [facility] Comment on above: Performed By: #### C BC, MG, CMP ####[address] Bilirubin [Mass/Vol] 0.8 mg/dL Normal 0.3-1.0 [facility] Comment on above: Performed By: #### C BC, MG, CMP ####[address] Calcium [Mass/Vol] 8.9 mg/dL Normal 8.6-10.3 [facility] Comment on above: Performed By: #### C BC, MG, CMP ####[place] [id number] [facility] Chloride [Moles/Vol] 102 mmol/L Normal 98-107 [facility] Comment on above: Performed By: #### C BC, MG, CMP ####[place] [id number] [facility] CO2 [Moles/Vol] 33.0 mmol/L High 21.0-31.0 [facility] Comment on above: Performed By: #### C BC, MG, CMP ####[place] [id number] [facility] Creatinine [Mass/Vol] 1.05 mg/dL Normal 0.70-1.30 [facility] Comment on above: Performed By: #### C BC, MG, CMP ####[address] Creatinine Clr Calc Pharmacy 75.84 Normal [facility] Comment on above: Performed By: #### C BC, MG, CMP ####[place] [id number] [facility] GFR/1.73 sq M.predicted MDRD (S/P/Bld) [Vol rate/Area] mL/min/{1.73_m2} Normal [facility] Comment on above: Performed By: #### C BC, MG, CMP ####[address] Globulin (S) [Mass/Vol] 2.5 g/dL Normal [facility] Comment on above: Performed By: #### C BC, MG, CMP ####[address] Glucose [Mass/Vol] 100 mg/dL Normal 70-100 [facility] Comment on above: Result Comment: [facility] Glucose Reference Range is dependent on time and content of last meal. Glucose of more than 200 mg/dL in a nonstressed, ambulatory subject supports the diagnosis of Diabetes Mellitus. ADA recommended reference range Performed By: #### C BC, MG, CMP ####[address] Potassium [Moles/Vol] 3.4 mmol/L Low 3.5-5.1 [facility] Comment on above: Performed By: #### C BC, MG, CMP ####[place] [id number] [facility] Protein [Mass/Vol] 5.6 g/dL Low 6.4-8.9 [facility] Comment on above: Performed By: #### C BC, MG, CMP ####[address] Sodium [Moles/Vol] 142 mmol/L Normal 136-145 [facility] Comment on above: Performed By: #### C BC, MG, CMP ####[facility] [id number] Urea nitrogen [Mass/Vol] 18 mg/dL Normal 7-25 [facility] Comment on above: Performed By: #### C BC, MG, CMP ####[facility] [id number] Creatinine [Mass/volume] in Serum or PlasmaOrdered By: Kaz Prescott on 07-31-2024 Creatinine [Mass/Vol] Creatinine [Mass/v olume] in Serum or Plasma 0.70-1.30 [facility] Eosinophils Auto (Bld) [#/Vo l]Ordered By: Kaz Prescott on 07-31-2024 Eosinophils (Bld) [#/Vol] Automated eosinophil count 0.0-0.45 [facility] Eosinophils/100 WBC Auto (Bl d)Ordered By: Kaz Prescott on 07-31-2024 Eosinophils/100 WBC (Bld) Automated eosinophil % . [facility] Erythrocyte distribution wid th Auto (RBC) [Ratio]Ordered By: Kaz Prescott on 07-31-2024 Erythrocyte distribution width (RBC) [Ratio] Erythrocyte distribution width [Ratio] by Automated count High 12.0-14.8 [facility] Globulin Calc (S) [Mass/Vol] Ordered By: Kaz Prescott on 07-31-2024 Globulin (S) [Mass/Vol] Serum globulin measurement by calculation (mass/volume) [facility] Glucose [Mass/volume] in Ser um or PlasmaOrdered By: Kaz Prescott on 07-31-2024 Glucose [Mass/Vol] Glucose [Mass/volume ] in Serum or Plasma 70-100 [facility] Hematocrit Auto (Bld) [Volum e fraction]Ordered By: Kaz Prescott 07-31-2024 Hematocrit (Bld) [Volume fraction] Hematocrit [Volume Fraction] of Blood by Automated count Low 38.8-50.0 [facility] Hemoglobin [Mass/volume] in BloodOrdered By: Kaz Prescott 07-31-2024 Hemoglobin (Bld) [Mass/Vol] Hemoglobin [Mass/volume] in Blood 13.0-17.0 [facility] Leukocytes [#/volume] correc blessing for nucleated erythrocytes in Blood by Automated counOrdered By: Kaz Prescott on 07-31-2024 WBC corrected for nucl RBC Auto (Bld) [#/Vol] Leukocytes [#/volume] corrected for nucleated erythrocytes in Blood by Automated coun 4.1-10.5 [facility] Lymphocytes Auto (Bld) [#/Vo l]Ordered By: Kaz Prescott on 07-31-2024 Lymphocytes (Bld) [#/Vol] Lymphocytes [#/volume] in Blood by Automated count 1.00-4.8 [facility] Lymphocytes/100 WBC Auto (Bl d)Ordered By: Kaz Prescott on 07-31-2024 Lymphocytes/100 WBC (Bld) Lymphocytes/100 leukocytes in Blood by Automated count . [facility] MCH Auto (RBC) [Entitic mass ]Ordered By: Kaz Prescott on 07-31-2024 MCH (RBC) [Entitic mass] MCH [Entitic mass] by Automated count 27.5-35.2 [facility] MCHC Auto (RBC) [Mass/Vol]Or dered By: Kaz Prescott on 07-31-2024 MCHC (RBC) [Mass/Vol] MCHC [Mass/volume] by Automated count 32.5-35.6 [facility] MCV Auto (RBC) [Entitic vol] Ordered By: Kaz Prescott on 07-31-2024 MCV (RBC) [Entitic vol] MCV [Entitic volume] by Automated count 83.5-101 [facility] Magnesiumon 07-31-2024 Magnesium [Mass/Vol] 1.9 mg/dL Normal 1.9-2.7 [facility] Comment on above: Result Comment: PERF ORMED BY:[facility] [place], [place] [phone] MEDICAL DIRECTORRHONDA MCLEAN M.D. Performed By: #### C BC, MG, CMP ####[facility] [place] [address] [facility] Magnesium [Mass/volume] in [place] or PlasmaOrdered By: Kaz Prescott on 07-31-2024 Magnesium [Mass/Vol] Magnesium [Mass/vol ume] in Serum or Plasma 1.9-2.7 [facility] Monocytes Auto (Bld) [#/Vol] Ordered By: Kaz Prescott on 07-31-2024 Monocytes (Bld) [#/Vol] Automated blood monocyte count High 0.0-0.8 [facility] Monocytes/100 WBC Auto (Bld) Ordered By: Kaz Prescott on 07-31-2024 Monocytes/100 WBC (Bld) Automated monocyte % . [facility] Neutrophils Auto (Bld) [#/Vo l]Ordered By: Kaz Prescott on 07-31-2024 Neutrophils (Bld) [#/Vol] Neutrophils [#/volume] in Blood by Automated count 1.8-7.7 [facility] Neutrophils/100 WBC Auto (Bl d)Ordered By: Kaz Prescott on 07-31-2024 Neutrophils/100 WBC (Bld) Automated neutrophil % . [facility] No Panel InformationOrdered By: Kaz Prescott on 07-31-2024 > 60.0 mL/Min [facility] 75.84 [facility] Nucleated erythrocytes [Pres ence] in Blood by Automated countOrdered By: Kaz Prescott on 07-31-2024 Nucleated RBC Auto Ql (Bld) Nucleated erythrocytes [Presence] in Blood by Automated count 0-0.5 [facility] Platelet mean volume Auto (B ld) [Entitic vol]Ordered By: Kaz Prescott on 07-31-2024 Platelet mean volume (Bld) [Entitic vol] Platelet mean volume [Entitic volume] in Blood by Automated count 6.6-10.1 [facility] Platelets Auto (Bld) [#/Vol] Ordered By: Kaz Prescott on 07-31-2024 Platelets (Bld) [#/Vol] Platelets [#/volume] in Blood by Automated count 150-450 [facility] Potassium [Moles/volume] in Serum or PlasmaOrdered By: Kaz Prescott on 07-31-2024 Potassium [Moles/Vol] Potassium [Moles/v olume] in Serum or Plasma Low 3.5-5.1 [facility] Protein [Mass/volume] in Ser um or PlasmaOrdered By: Kaz Prescott on 07-31-2024 Protein [Mass/Vol] Protein [Mass/volume ] in Serum or Plasma Low 6.4-8.9 [facility] RBC Auto (Bld) [#/Vol]Ordere d By: Kaz Prescott on 07-31-2024 RBC (Bld) [#/Vol] Erythrocytes [#/volu me] in Blood by Automated count 3.90-5.60 [facility] Serum or plasma albumin/glob ulin mass ratioOrdered By: Kaz Prescott on 07-31-2024 Albumin/Globulin [Mass ratio] Serum or plasma albumin/globulin mass ratio [facility] Serum or plasma anion gap de terminationOrdered By: Kaz Prescott on 07-31-2024 Anion gap [Moles/Vol] Serum or plasma an ion gap determination 6.0-15.0 [facility] Sodium [Moles/volume] in Ser um or PlasmaOrdered By: Kaz Prescott on 07-31-2024 Sodium [Moles/Vol] Sodium [Moles/volume ] in Serum or Plasma 136-145 [facility] US venous duplex LE BIon US venous duplex LE BI Normal Th e [facility] Urea nitrogen [Mass/volume] in Serum or PlasmaOrdered By: Kaz Prescott on 07-31-2024 Urea nitrogen [Mass/Vol] Urea nitrogen [Mass/volume] in Serum or Plasma 7-25 [facility] WBC Auto (Bld) [#/Vol]Ordere d By: Kaz Prescott on 07-31-2024 WBC (Bld) [#/Vol] Leukocytes [#/volume ] in Blood by Automated count 4.1-10.5 [facility] Complete Blood Count Auto Di ffon 07-30-2024 Basophils (Bld) [#/Vol] 0.1 10*3/uL Normal 0.0-0.2 [facility] Comment on above: Result Comment: PERF ORMED BY:[place] [address] [place], [place] [phone] MEDICAL DIRECTORRHONDA MCLEAN M.D. Performed By: #### C BC, CMP ####[address] Basophils/100 WBC (Bld) 0.6 % Normal . [facility] Comment on above: Performed By: #### C BC, CMP ####[address] Eosinophils (Bld) [#/Vol] 0.1 10*3/uL Normal 0.0-0.45 [facility] Comment on above: Performed By: #### C BC, CMP ####[address] Eosinophils/100 WBC (Bld) 1.6 % Normal . [facility] Comment on above: Performed By: #### C BC, CMP ####[address] Erythrocyte distribution width (RBC) [Ratio] 15.4 % High 12.0-14.8 [facility] Comment on above: Performed By: #### C BC, CMP ####[address] Hematocrit (Bld) [Volume fraction] 38.6 % Low 38.8-50.0 [facility] Comment on above: Performed By: #### C BC, CMP ####[address] Hemoglobin (Bld) [Mass/Vol] 13.0 g/dL Normal 13.0-17.0 [facility] Comment on above: Performed By: #### C BC, CMP ####[address] Lymphocytes (Bld) [#/Vol] 2.3 10*3/uL Normal 1.00-4.8 [facility] Comment on above: Performed By: #### C BC, CMP ####[address] Lymphocytes/100 WBC (Bld) 25.0 % Normal . [facility] Comment on above: Performed By: #### C BC, CMP ####[address] MCH (RBC) [Entitic mass] 30.5 pg Normal 27.5-35.2 [facility] Comment on above: Performed By: #### C BC, CMP ####[address] MCV (RBC) [Entitic vol] 90.6 fL Normal 83.5-101 [facility] Comment on above: Performed By: #### C BC, CMP ####[address] Mean Corpuscular HGB Conc 33.7 g/dL Normal 32.5-35.6 [facility] Comment on above: Performed By: #### C BC, CMP ####[address] Monocytes (Bld) [#/Vol] 0.9 10*3/uL High 0.0-0.8 [facility] Comment on above: Performed By: #### C BC, CMP ####[address] Monocytes/100 WBC (Bld) 9.5 % Normal . [facility] Comment on above: Performed By: #### C BC, CMP ####[address] Neutrophils (Bld) [#/Vol] 5.8 10*3/uL Normal 1.8-7.7 [facility] Comment on above: Performed By: #### C BC, CMP ####[address] Neutrophils/100 WBC (Bld) 63.3 % Normal . [facility] Comment on above: Performed By: #### C BC, CMP ####[address] NRBC% 0.1 /100{WBC} Normal 0-0.5 [facility] Comment on above: Performed By: #### C BC, CMP ####[address] Platelet mean volume (Bld) [Entitic vol] 8.1 fL Normal 6.6-10.1 [facility] Comment on above: Performed By: #### C BC, CMP ####[address] Platelets (Bld) [#/Vol] 220 10*3/uL Normal 150-450 [facility] Comment on above: Performed By: #### C BC, CMP ####[address] RBC (Bld) [#/Vol] 4.26 10*6/uL Normal 3.90-5.60 [facility] Comment on above: Performed By: #### C BC, CMP ####[address] WBC (Bld) [#/Vol] 9.2 10*3/uL Normal 4.1-10.5 [facility] Comment on above: Performed By: #### C VERÓNICA, CMP ####[address] Comprehensive Metabolic Pane rc 07-30-2024 Albumin [Mass/Vol] 3.2 g/dL Low 3.5-5.7 [facility] Comment on above: Performed By: #### C BC, CMP ####[address] Albumin/Globulin [Mass ratio] 1.3 {ratio} Normal [facility] Comment on above: Performed By: #### C BC, CMP ####[address] ALP [Catalytic activity/Vol] 50 U/L Normal 34-104 [facility] Comment on above: Performed By: #### C BC, CMP ####[address] ALT [Catalytic activity/Vol] 19 U/L Normal 7-52 [facility] Comment on above: Performed By: #### C BC, CMP ####[place] [id number] [facility] Anion gap [Moles/Vol] 9.8 mmol/L Normal 6.0-15.0 [facility] Comment on above: Performed By: #### C BC, CMP ####[address] AST [Catalytic activity/Vol] 18 U/L Normal 13-39 [facility] Comment on above: Performed By: #### C BC, CMP ####[address] Bilirubin [Mass/Vol] 0.8 mg/dL Normal 0.3-1.0 [facility] Comment on above: Performed By: #### C BC, CMP ####[address] Calcium [Mass/Vol] 9.1 mg/dL Normal 8.6-10.3 [facility] Comment on above: Performed By: #### C BC, CMP ####[address] Chloride [Moles/Vol] 103 mmol/L Normal 98-107 [facility] Comment on above: Performed By: #### C BC, CMP ####[place] [id number] [facility] CO2 [Moles/Vol] 33.6 mmol/L High 21.0-31.0 [facility] Comment on above: Performed By: #### C BC, CMP ####[place] [id number] [facility] Creatinine [Mass/Vol] 1.00 mg/dL Normal 0.70-1.30 [facility] Comment on above: Performed By: #### C BC, CMP ####[place] [id number] [facility] Creatinine Clr Calc Pharmacy 80.23 Normal [facility] Comment on above: Result Comment: PERF ORMED BY:[address] [place], [place] [phone] MEDICAL DIRECTORRHONDA MCLEAN M.D. Performed By: #### C BC, CMP ####[address] [address] [facility] GFR/1.73 sq M.predicted MDRD (S/P/Bld) [Vol rate/Area] mL/min/{1.73_m2} Normal [facility] Comment on above: Performed By: #### C BC, CMP ####[address] [address] [facility] Globulin (S) [Mass/Vol] 2.5 g/dL Normal [facility] Comment on above: Performed By: #### C BC, CMP ####[address] [address] [facility] Glucose [Mass/Vol] 99 mg/dL Normal 70-100 [facility] Comment on above: Result Comment: [facility] Glucose Reference Range is dependent on time and content of last meal. Glucose of more than 200 mg/dL in a nonstressed, ambulatory subject supports the diagnosis of Diabetes Mellitus. ADA recommended reference range Performed By: #### C BC, CMP ####[place] [id number] [facility] Potassium [Moles/Vol] 3.4 mmol/L Low 3.5-5.1 [facility] Comment on above: Performed By: #### C BC, CMP ####[address] [address] [facility] Protein [Mass/Vol] 5.7 g/dL Low 6.4-8.9 [facility] Comment on above: Performed By: #### C BC, CMP ####[place] [id number] [facility] Sodium [Moles/Vol] 143 mmol/L Normal 136-145 [facility] Comment on above: Performed By: #### C BC, CMP ####[place] [id number] [facility] Urea nitrogen [Mass/Vol] 20 mg/dL Normal 7-25 [facility] Comment on above: Performed By: #### C BC, CMP ####[address] lumbar spine wo conon CT lumbar spine wo con Normal Th e [facility] Complete Blood Count Auto Di ffon 07-29-2024 Basophils (Bld) [#/Vol] 0.0 10*3/uL Normal 0.0-0.2 [facility] Comment on above: Result Comment: PERF ORMED BY:[address] [place], [place] [phone] MEDICAL DIRECTORRHONDA MCLEAN M.D. Performed By: #### P HOS, CMP, CBC, MG ####[address] Basophils/100 WBC (Bld) 0.4 % Normal . [facility] Comment on above: Performed By: #### P HOS, CMP, CBC, MG ####[address] Eosinophils (Bld) [#/Vol] 0.1 10*3/uL Normal 0.0-0.45 [facility] Comment on above: Performed By: #### P HOS, CMP, CBC, MG ####[address] Eosinophils/100 WBC (Bld) 0.9 % Normal . [facility] Comment on above: Performed By: #### P HOS, CMP, CBC, MG ####[address] Erythrocyte distribution width (RBC) [Ratio] 15.2 % High 12.0-14.8 [facility] Comment on above: Performed By: #### P HOS, CMP, CBC, MG ####[address] Hematocrit (Bld) [Volume fraction] 39.0 % Normal 38.8-50.0 [facility] Comment on above: Performed By: #### P HOS, CMP, CBC, MG ####[address] Hemoglobin (Bld) [Mass/Vol] 13.2 g/dL Normal 13.0-17.0 [facility] Comment on above: Performed By: #### P HOS, CMP, CBC, MG ####[address] Lymphocytes (Bld) [#/Vol] 1.9 10*3/uL Normal 1.00-4.8 [facility] Comment on above: Performed By: #### P HOS, CMP, CBC, MG ####[address] Lymphocytes/100 WBC (Bld) 23.4 % Normal . [facility] Comment on above: Performed By: #### P HOS, CMP, CBC, MG ####[address] MCH (RBC) [Entitic mass] 30.5 pg Normal 27.5-35.2 [facility] Comment on above: Performed By: #### P HOS, CMP, CBC, MG ####[address] MCV (RBC) [Entitic vol] 90.5 fL Normal 83.5-101 [facility] Comment on above: Performed By: #### P HOS, CMP, CBC, MG ####[address] Mean Corpuscular HGB Conc 33.7 g/dL Normal 32.5-35.6 [facility] Comment on above: Performed By: #### P HOS, CMP, CBC, MG ####[address] Monocytes (Bld) [#/Vol] 1.1 10*3/uL High 0.0-0.8 [facility] Comment on above: Performed By: #### P HOS, CMP, CBC, MG ####[address] Monocytes/100 WBC (Bld) 13.3 % Normal . [facility] Comment on above: Performed By: #### P HOS, CMP, CBC, MG ####[address] Neutrophils (Bld) [#/Vol] 5.2 10*3/uL Normal 1.8-7.7 [facility] Comment on above: Performed By: #### P HOS, CMP, CBC, MG ####[address] Neutrophils/100 WBC (Bld) 62.0 % Normal . [facility] Comment on above: Performed By: #### P HOS, CMP, CBC, MG ####[address] NRBC% 0.1 /100{WBC} Normal 0-0.5 [facility] Comment on above: Performed By: #### P HOS, CMP, CBC, MG ####[address] Platelet mean volume (Bld) [Entitic vol] 8.4 fL Normal 6.6-10.1 [facility] Comment on above: Performed By: #### P HOS, CMP, CBC, MG ####[address] Platelets (Bld) [#/Vol] 217 10*3/uL Normal 150-450 [facility] Comment on above: Performed By: #### P HOS, CMP, CBC, MG ####[place] [address] [place] RBC (Bld) [#/Vol] 4.31 10*6/uL Normal 3.90-5.60 [facility] Comment on above: Performed By: #### P HOS, CMP, CBC, MG ####[address] WBC (Bld) [#/Vol] 8.3 10*3/uL Normal 4.1-10.5 [facility] Comment on above: Performed By: #### P HOS, CMP, CBC, MG ####[address] Comprehensive Metabolic Pane rc 07-29-2024 Albumin [Mass/Vol] 3.2 g/dL Low 3.5-5.7 [facility] Comment on above: Performed By: #### P HOS, CMP, CBC, MG ####[address] Albumin/Globulin [Mass ratio] 1.2 {ratio} Normal [facility] Comment on above: Performed By: #### P HOS, CMP, CBC, MG ####[address] ALP [Catalytic activity/Vol] 49 U/L Normal 34-104 [facility] Comment on above: Performed By: #### P HOS, CMP, CBC, MG ####[address] ALT [Catalytic activity/Vol] 18 U/L Normal 7-52 [facility] Comment on above: Performed By: #### P HOS, CMP, CBC, MG ####[address] Anion gap [Moles/Vol] 11.3 mmol/L Normal 6.0-15.0 [facility] Comment on above: Performed By: #### P HOS, CMP, CBC, MG ####[address] AST [Catalytic activity/Vol] 19 U/L Normal 13-39 [facility] Comment on above: Performed By: #### P HOS, CMP, CBC, MG ####[address] Bilirubin [Mass/Vol] 0.8 mg/dL Normal 0.3-1.0 [facility] Comment on above: Performed By: #### P HOS, CMP, CBC, MG ####[place] [address] Calcium [Mass/Vol] 9.1 mg/dL Normal 8.6-10.3 [facility] Comment on above: Performed By: #### P HOS, CMP, CBC, MG ####[address] Chloride [Moles/Vol] 102 mmol/L Normal 98-107 [facility] Comment on above: Performed By: #### P HOS, CMP, CBC, MG ####[address] CO2 [Moles/Vol] 34.0 mmol/L High 21.0-31.0 [facility] Comment on above: Performed By: #### P HOS, CMP, CBC, MG ####[address] Creatinine [Mass/Vol] 1.09 mg/dL Normal 0.70-1.30 [facility] Comment on above: Performed By: #### P HOS, CMP, CBC, MG ####[address] Creatinine Clr Calc Pharmacy 73.15 Normal [facility] Comment on above: Performed By: #### P HOS, CMP, CBC, MG ####[address] GFR/1.73 sq M.predicted MDRD (S/P/Bld) [Vol rate/Area] mL/min/{1.73_m2} Normal [facility] Comment on above: Performed By: #### P HOS, CMP, CBC, MG ####[address] Globulin (S) [Mass/Vol] 2.6 g/dL Normal [facility] Comment on above: Performed By: #### P HOS, CMP, CBC, MG ####[address] Glucose [Mass/Vol] 98 mg/dL Normal 70-100 [facility] Comment on above: Result Comment: [place] Glucose Reference Range is dependent on time and content of last meal. Glucose of more than 200 mg/dL in a nonstressed, ambulatory subject supports the diagnosis of Diabetes Mellitus. ADA recommended reference range Performed By: #### P HOS, CMP, CBC, MG ####[place] [address] [place] [address] [facility] Potassium [Moles/Vol] 3.3 mmol/L Low 3.5-5.1 [facility] Comment on above: Performed By: #### P HOS, CMP, CBC, MG ####[place] [address] [place] [id number] [facility] Protein [Mass/Vol] 5.8 g/dL Low 6.4-8.9 [facility] Comment on above: Performed By: #### P HOS, CMP, CBC, MG ####[place] [id number] [facility] Sodium [Moles/Vol] 144 mmol/L Normal 136-145 [facility] Comment on above: Performed By: #### P HOS, CMP, CBC, MG ####[place] [id number] [facility] Urea nitrogen [Mass/Vol] 23 mg/dL Normal 7-25 [facility] Comment on above: Performed By: #### P HOS, CMP, CBC, MG ####[address] [address] [facility] Magnesiumon 07-29-2024 Magnesium [Mass/Vol] 1.8 mg/dL Low 1.9-2.7 [facility] Comment on above: Result Comment: PERF ORMED BY:[address] [place], [place] [phone] MEDICAL DIRECTORRHONDA MCLEAN M.D. Performed By: #### P HOS, CMP, CBC, MG ####[address] [address] [facility] Phosphate [Mass/volume] in [place] or PlasmaOrdered By: Kamaljit Melo on 07-29-2024 Phosphate [Mass/Vol] Phosphate [Mass/vol ume] in Serum or Plasma 2.5-4.5 [facility] Phosphoruson 07-29-2024 Phosphate [Mass/Vol] 3.4 mg/dL Normal 2.5-4.5 [facility] Comment on above: Performed By: #### P HOS, CMP, CBC, MG ####[facility] [place] [address] [facility] Appearance of UrineOrdered B y: Juli Thomas on 07-28-2024 Appearance (U) Urine appearance Clear [facility] B-Type Natriuretic Peptideon 07-28-2024 Natriuretic peptide B (Bld) [Mass/Vol] 142.0 pg/mL High 5-100 [facility] Comment on above: Result Comment: PERF ORMED BY:[place] [address] [place], [place] [phone] MEDICAL NELLIE MCLEAN M.D. Performed By: #### P HOS, MG, BNP, HS TROP, CMP, PTT, PT, CBC ####[facility] [id number] [place] [address] [facility] Bacteria [Presence] in Urine by AutomatedOrdered By: Juli Thomas on 07-28-2024 Bacteria Auto Ql (U) Bacteria [Presence] in Urine by Automated None Seen [facility] Bilirubin Test strip Ql (U)O rdered By: Juli Thomas on 07-28-2024 Bilirubin Ql (U) Bilirubin.total [Pre sence] in Urine by Test strip Negative [facility] CT cervical spine wo conon 1 09-28-2023 CT cervical spine wo con Normal [facility] Color Auto (U)Ordered By: Goyo Thomas on 07-28-2024 Color (U) Color of Urine by Auto Yellow [facility] Complete Blood Count Auto Di ffon 07-28-2024 Basophils (Bld) [#/Vol] 0.1 10*3/uL Normal 0.0-0.2 [facility] Comment on above: Result Comment: PERF ORMED BY:[place] [address] [address] [place], [place] [phone] MEDICAL DIRECTORRHONDA MCLEAN M.D. Performed By: #### P HOS, MG, BNP, HS TROP, CMP, PTT, PT, CBC ####[address] Basophils/100 WBC (Bld) 0.9 % Normal . [facility] Comment on above: Performed By: #### P HOS, MG, BNP, HS TROP, CMP, PTT, PT, CBC ####[address] Eosinophils (Bld) [#/Vol] 0.0 10*3/uL Normal 0.0-0.45 [facility] Comment on above: Performed By: #### P HOS, MG, BNP, HS TROP, CMP, PTT, PT, CBC ####[address] Eosinophils/100 WBC (Bld) 0.2 % Normal . [facility] Comment on above: Performed By: #### P HOS, MG, BNP, HS TROP, CMP, PTT, PT, CBC ####[address] Erythrocyte distribution width (RBC) [Ratio] 15.1 % High 12.0-14.8 [facility] Comment on above: Performed By: #### P HOS, MG, BNP, HS TROP, CMP, PTT, PT, CBC ####[address] Hematocrit (Bld) [Volume fraction] 38.9 % Normal 38.8-50.0 [facility] Comment on above: Performed By: #### P HOS, MG, BNP, HS TROP, CMP, PTT, PT, CBC ####[address] Hemoglobin (Bld) [Mass/Vol] 13.1 g/dL Normal 13.0-17.0 [facility] Comment on above: Performed By: #### P HOS, MG, BNP, HS TROP, CMP, PTT, PT, CBC ####[address] Lymphocytes (Bld) [#/Vol] 0.7 10*3/uL Low 1.00-4.8 [facility] Comment on above: Performed By: #### P HOS, MG, BNP, HS TROP, CMP, PTT, PT, CBC ####[address] Lymphocytes/100 WBC (Bld) 5.7 % Normal . [facility] Comment on above: Performed By: #### P HOS, MG, BNP, HS TROP, CMP, PTT, PT, CBC ####[address] MCH (RBC) [Entitic mass] 30.4 pg Normal 27.5-35.2 [facility] Comment on above: Performed By: #### P HOS, MG, BNP, HS TROP, CMP, PTT, PT, CBC ####[address] MCV (RBC) [Entitic vol] 90.3 fL Normal 83.5-101 [facility] Comment on above: Performed By: #### P HOS, MG, BNP, HS TROP, CMP, PTT, PT, CBC ####[address] Mean Corpuscular HGB Conc 33.7 g/dL Normal 32.5-35.6 [facility] Comment on above: Performed By: #### P HOS, MG, BNP, HS TROP, CMP, PTT, PT, CBC ####[address] Monocytes (Bld) [#/Vol] 1.1 10*3/uL High 0.0-0.8 [facility] Comment on above: Performed By: #### P HOS, MG, BNP, HS TROP, CMP, PTT, PT, CBC ####[address] Monocytes/100 WBC (Bld) 20.19 % High 0.00-20.00 [facility] Comment on above: Result Comment: For adults in ED, MDW > 20.0 may be associated with a higher risk of sepsis during the first 12 hrs of hospital admission Performed By: #### P HOS, MG, BNP, HS TROP, CMP, PTT, PT, CBC ####[address] Monocytes/100 WBC (Bld) 8.7 % Normal . [facility] Comment on above: Performed By: #### P HOS, MG, BNP, HS TROP, CMP, PTT, PT, CBC ####[address] Neutrophils (Bld) [#/Vol] 10.6 10*3/uL High 1.8-7.7 [facility] Comment on above: Performed By: #### P HOS, MG, BNP, HS TROP, CMP, PTT, PT, CBC ####[address] Neutrophils/100 WBC (Bld) 84.5 % Normal . [facility] Comment on above: Performed By: #### P HOS, MG, BNP, HS TROP, CMP, PTT, PT, CBC ####[address] NRBC% 0.2 /100{WBC} Normal 0-0.5 [facility] Comment on above: Performed By: #### P HOS, MG, BNP, HS TROP, CMP, PTT, PT, CBC ####[address] Platelet mean volume (Bld) [Entitic vol] 8.6 fL Normal 6.6-10.1 [facility] Comment on above: Performed By: #### P HOS, MG, BNP, HS TROP, CMP, PTT, PT, CBC ####[address] Platelets (Bld) [#/Vol] 234 10*3/uL Normal 150-450 [facility] Comment on above: Performed By: #### P HOS, MG, BNP, HS TROP, CMP, PTT, PT, CBC ####[address] RBC (Bld) [#/Vol] 4.31 10*6/uL Normal 3.90-5.60 [facility] Comment on above: Performed By: #### P HOS, MG, BNP, HS TROP, CMP, PTT, PT, CBC ####[address] WBC (Bld) [#/Vol] 12.5 10*3/uL High 4.1-10.5 [facility] Comment on above: Performed By: #### P HOS, MG, BNP, HS TROP, CMP, PTT, PT, CBC ####[address] Comprehensive Metabolic Pane rc 07-28-2024 Albumin [Mass/Vol] 3.4 g/dL Low 3.5-5.7 [facility] Comment on above: Performed By: #### P HOS, MG, BNP, HS TROP, CMP, PTT, PT, CBC ####[address] Albumin/Globulin [Mass ratio] 1.2 {ratio} Normal [facility] Comment on above: Performed By: #### P HOS, MG, BNP, HS TROP, CMP, PTT, PT, CBC ####[address] ALP [Catalytic activity/Vol] 57 U/L Normal 34-104 [facility] Comment on above: Performed By: #### P HOS, MG, BNP, HS TROP, CMP, PTT, PT, CBC ####[address] ALT [Catalytic activity/Vol] 22 U/L Normal 7-52 [facility] Comment on above: Performed By: #### P HOS, MG, BNP, HS TROP, CMP, PTT, PT, CBC ####[address] Anion gap [Moles/Vol] 13.5 mmol/L Normal 6.0-15.0 [facility] Comment on above: Performed By: #### P HOS, MG, BNP, HS TROP, CMP, PTT, PT, CBC ####[address] AST [Catalytic activity/Vol] 20 U/L Normal 13-39 [facility] Comment on above: Performed By: #### P HOS, MG, BNP, HS TROP, CMP, PTT, PT, CBC ####[address] Bilirubin [Mass/Vol] 0.7 mg/dL Normal 0.3-1.0 [facility] Comment on above: Performed By: #### P HOS, MG, BNP, HS TROP, CMP, PTT, PT, CBC ####[address] Calcium [Mass/Vol] 9.1 mg/dL Normal 8.6-10.3 [facility] Comment on above: Performed By: #### P HOS, MG, BNP, HS TROP, CMP, PTT, PT, CBC ####[address] Chloride [Moles/Vol] 100 mmol/L Normal 98-107 [facility] Comment on above: Performed By: #### P HOS, MG, BNP, HS TROP, CMP, PTT, PT, CBC ####[address] CO2 [Moles/Vol] 29.9 mmol/L Normal 21.0-31.0 [facility] Comment on above: Performed By: #### P HOS, MG, BNP, HS TROP, CMP, PTT, PT, CBC ####[address] Creatinine [Mass/Vol] 1.20 mg/dL Normal 0.70-1.30 [facility] Comment on above: Performed By: #### P HOS, MG, BNP, HS TROP, CMP, PTT, PT, CBC ####[address] Creatinine Clr Calc Pharmacy 67.69 Normal [facility] Comment on above: Performed By: #### P HOS, MG, BNP, HS TROP, CMP, PTT, PT, CBC ####[address] GFR/1.73 sq M.predicted MDRD (S/P/Bld) [Vol rate/Area] mL/min/{1.73_m2} Normal [facility] Comment on above: Performed By: #### P HOS, MG, BNP, HS TROP, CMP, PTT, PT, CBC ####[address] Globulin (S) [Mass/Vol] 2.8 g/dL Normal [facility] Comment on above: Performed By: #### P HOS, MG, BNP, HS TROP, CMP, PTT, PT, CBC ####[address] Glucose [Mass/Vol] 151 mg/dL High 70-100 [facility] Comment on above: Result Comment: [facility] Glucose Reference Range is dependent on time and content of last meal. Glucose of more than 200 mg/dL in a nonstressed, ambulatory subject supports the diagnosis of Diabetes Mellitus. ADA recommended reference range Performed By: #### P HOS, MG, BNP, HS TROP, CMP, PTT, PT, CBC ####[address] Potassium [Moles/Vol] 3.4 mmol/L Low 3.5-5.1 [facility] Comment on above: Performed By: #### P HOS, MG, BNP, HS TROP, CMP, PTT, PT, CBC ####[address] Protein [Mass/Vol] 6.2 g/dL Low 6.4-8.9 [facility] Comment on above: Performed By: #### P HOS, MG, BNP, HS TROP, CMP, PTT, PT, CBC ####[address] Sodium [Moles/Vol] 140 mmol/L Normal 136-145 [facility] Comment on above: Performed By: #### P HOS, MG, BNP, HS TROP, CMP, PTT, PT, CBC ####[place] [id number] [facility] Urea nitrogen [Mass/Vol] 28 mg/dL High 7-25 [facility] Comment on above: Performed By: #### P HOS, MG, BNP, HS TROP, CMP, PTT, PT, CBC ####[address] [address] [facility] Dipstick and Microscopicon 1 09-28-2023 Appearance (U) Clear Normal Clear [facility] Comment on above: Order Comment: Name Collection Type:: Clean-Voided Midstream Performed By: #### A DDONUAPLUS ####[address] [address] [facility] Bacteria,Urine None Seen Normal None Seen [facility] Comment on above: Order Comment: Name Collection Type:: Clean-Voided Midstream Performed By: #### A DDONUAPLUS ####[address] [address] [facility] Bilirubin,Urine Negative Normal Negative [facility] Comment on above: Order Comment: Name Collection Type:: Clean-Voided Midstream Performed By: #### A DDONUAPLUS ####[address] [address] [facility] Color (U) Colorless Normal Yellow [facility] Comment on above: Order Comment: Name Collection Type:: Clean-Voided Midstream Performed By: #### A DDONUAPLUS ####[address] [address] [facility] Glucose Ql (U) Normal Normal Normal [facility] Comment on above: Order Comment: Name Collection Type:: Clean-Voided Midstream Performed By: #### A DDONUAPLUS ####[address] [address] [facility] Hyaline Casts,Urine None Normal 0-8 [facility] Comment on above: Order Comment: Name Collection Type:: Clean-Voided Midstream Result Comment: PERF ORMED BY:[place] [address] [address] [place], [place] [phone] MEDICAL NELLIE MCLEAN M.D. Performed By: #### A DDONUAPLUS ####[address] [address] [facility] Ketones Ql (U) Negative Normal Negative [facility] Comment on above: Order Comment: Name Collection Type:: Clean-Voided Midstream Performed By: #### A DDONUAPLUS ####[address] [address] [facility] Leukocyte esterase Test strip Ql (U) Negative Normal Negative [facility] Comment on above: Order Comment: Name Collection Type:: Clean-Voided Midstream Performed By: #### A DDONUAPLUS ####[address] [address] [place] Nitrite,Urine Negative Normal Negative [facility] Comment on above: Order Comment: Name Collection Type:: Clean-Voided Midstream Performed By: #### A DDONUAPLUS ####[address] [address] [place] Occult Blood,Urine Trace High Negative [facility] Comment on above: Order Comment: Name Collection Type:: Clean-Voided Midstream Result Comment: PERF ORMED BY:[address] [address] [address] [place], [place] [phone] JIL MCLEAN M.D. Performed By: #### A DDONUAPLUS ####[address] [address] [place] pH (U) 6.5 [pH] Normal 5.0-9.0 [facility] Comment on above: Order Comment: Name Collection Type:: Clean-Voided Midstream Performed By: #### A DDONUAPLUS ####[address] [address] [place] Protein,Urine Negative Normal Negative [facility] Comment on above: Order Comment: Name Collection Type:: Clean-Voided Midstream Performed By: #### A DDONUAPLUS ####[address] RBC,Urine 1 [HPF] Normal 0-4 [facility] Comment on above: Order Comment: Name Collection Type:: Clean-Voided Midstream Performed By: #### A DDONUAPLUS ####[address] Specificy [place],Urine 1.006 Normal 1.001-1.03 0 [facility] Comment on above: Order Comment: Name Collection Type:: Clean-Voided Midstream Performed By: #### A DDONUAPLUS ####[address] Urobilinogen,Urine Normal Normal Normal [facility] Comment on above: Order Comment: Name Collection Type:: Clean-Voided Midstream Performed By: #### A DDONUAPLUS ####[address] WBC,Urine 1 [HPF] Normal 0-4 [facility] Comment on above: Order Comment: Name Collection Type:: Clean-Voided Midstream Performed By: #### A DDONUAPLUS ####[address] ECG 12 lead ECGon 07-28-2024 ECG 12 lead ECG Normal [facility] Epithelial cells.squamous [# /area] in Urine sediment by Automated countOrdered By: Juli Thomas on 07-28-2024 Epithelial cells.squamous Auto (Urine sed) [#/Area] Epithelial cells.squamous [#/area] in Urine sediment by Automated count [facility] Erythrocytes [#/area] in Uri ne sediment by Automated countOrdered By: Juli Thomas on 07-28-2024 RBC Auto (Urine sed) [#/Area] Erythrocytes [#/area] in Urine sediment by Automated count 0-4 [facility] Glucose Glucometer (BldC) [M ass/Vol]Ordered By: Juli Thomas on 07-28-2024 Glucose [Mass/Vol] Capillary blood gluc ose measurement by glucometer (mass/volume) [facility] Glucose Poct Glucometerson 1 09-28-2023 Glucose [Mass/Vol] 172 mg/dL Normal [facility] Comment on above: Result Comment: [facility] Glucose Reference Range is dependent on time and content of last meal. Glucose of more than 200 mg/dL in a nonstressed, ambulatory subject supports the diagnosis of Diabetes Mellitus.PERFORMED BY:[address] [place], [place] [phone] MEDICAL DIRECTORRHONDA MCLEAN M.D. Performed By: #### G LULS ####Point of Care testing, Glucose [Mass/volume] in Uri ne by Test stripOrdered By: Juli Thomas on 07-28-2024 Glucose Test strip (U) [Mass/Vol] Glucose [Mass/volume] in Urine by Test strip Normal [facility] Hemoglobin Test strip Ql (U) Ordered By: Juli Thomas on 07-28-2024 Hemoglobin Ql (U) Hemoglobin [Presence ] in Urine by Test strip High Negative [facility] Hyaline casts [#/area] in Ur ine sediment by Automated countOrdered By: Juli Thomas on 07-28-2024 Hyaline casts Auto (Urine sed) [#/Area] Hyaline casts [#/area] in Urine sediment by Automated count 0-8 [facility] INR in Platelet poor plasma by Coagulation assayOrdered By: Juli Thomas on 07-28-2024 INR Coag (PPP) [Relative time] INR in Platelet poor plasma by Coagulation assay [facility] Ketones Test strip Ql (U)Ord ered By: Juli Thomas on 07-28-2024 Ketones Ql (U) Ketones [Presence] i n Urine by Test strip Negative [facility] Leukocyte esterase [Presence ] in Urine by Test stripOrdered By: Juli Thomas on 07-28-2024 Leukocyte esterase Test strip Ql (U) Leukocyte esterase [Presence] in Urine by Test strip Negative [facility] Leukocytes [#/area] in Urine sediment by Automated countOrdered By: Juli Thomas on 07-28-2024 WBC Auto (Urine sed) [#/Area] Leukocytes [#/area] in Urine sediment by Automated count 0-4 [facility] Magnesiumon 07-28-2024 Magnesium [Mass/Vol] 1.5 mg/dL Low 1.9-2.7 [facility] Comment on above: Result Comment: PERF ORMED BY:[place] [address] [place], [place] [phone] MEDICAL DIRECTORRHONDA MCLEAN M.D. Performed By: #### P HOS, MG, BNP, HS TROP, CMP, PTT, PT, CBC ####[address] [address] [facility] Monocyte distribution width [Entitic volume] in Blood by AutomatedOrdered By: Juli Thomas on 07-28-2024 Monocyte distribution width Auto (Bld) [Entitic vol] Monocyte distribution width [Entitic volume] in Blood by Automated High 0.00-20.00 [facility] Natriuretic peptide B [Mass/ Vol]Ordered By: Juli Thomas on 07-28-2024 Natriuretic peptide B (Bld) [Mass/Vol] BNP ser/plas High 5-100 [facility] Nitrite Test strip Ql (U)Ord ered By: Juli Thomas on 07-28-2024 Nitrite Ql (U) Nitrite [Presence] i n Urine by Test strip Negative [facility] Partial Thromboplastin Timeo n 07-28-2024 aPTT Coag (Bld) [Time] 26.3 s Normal 25.1-36.5 [facility] Comment on above: Result Comment: A he matocrit value greater than 55% may lead to inaccurate results in coagulation testing. Patients having hematocrit values >55% require a special collection tube for coagulation studies. Please contact the laboratory at [phone] for redraw instructions.PERFORMED BY:[address] [place] [address] [address] [place], [place] [phone] MEDICAL DIRECTORRHONDA MCLEAN M.D. Performed By: #### P HOS, MG, BNP, HS TROP, CMP, PTT, PT, CBC ####[address] [place] [address] [facility] Phosphoruson 07-28-2024 Phosphate [Mass/Vol] 2.8 mg/dL Normal 2.5-4.5 [facility] Comment on above: Performed By: #### P HOS, MG, BNP, HS TROP, CMP, PTT, PT, CBC ####[place] [address] [place] [address] [facility] Protein Test strip (U) [Mass /Vol]Ordered By: Juli Thomas on 07-28-2024 Protein (U) [Mass/Vol] Protein [Mass/vol ume] in Urine by Test strip Negative [facility] Prothrombin Time INRon 07-28 INR Coag (PPP) [Relative time] 1.4 {INR} Normal [facility] Comment on above: Result Comment: [...] BNP, HS TROP, CMP, PTT, PT, CBC ####[place] [address] [place] [phone] [facility] PT Coag (PPP) [Time] 16.0 s High 9.0-12.9 [facility] Comment on above: Result Comment: A he matocrit value greater than 55% may lead to inaccurate results in coagulation testing. Patients having hematocrit values >55% require a special collection tube for coagulation studies. Please contact the laboratory at [phone] for redraw instructions. Performed By: #### P HOS, MG, BNP, HS TROP, CMP, PTT, PT, CBC ####[place] [address] [place] [phone] [facility] Prothrombin time (PT)Ordered By: Juli Thomas on 07-28-2024 PT Coag (PPP) [Time] Prothrombin time (PT) High 9.0- 12.9 [facility] Specific gravity Test strip (U) [Rel density]Ordered By: Juli Thomas on 07-28-2024 Specific gravity (U) [Rel density] Specific gravity of Urine by Test strip 1.001-1.03 0 [facility] Troponin I High Sensitivityo n 07-28-2024 Troponin I High Sensitivity 11.2 pg/mL Normal 0.0-20.0 [facility] Comment on above: Result Comment: PERF ORMED BY:[address] [place], [place] [phone] MEDICAL DIRECTORXIOMYFORMERLY [facility] Marla Performed By: #### H S TROP ####[address] [address] [facility] Troponin I High Sensitivity 11.1 pg/mL Normal 0.0-20.0 [facility] Comment on above: Result Comment: PERF ORMED BY:[address] [place], [place] [phone] MEDICAL DIRECTORYOUNGWILLS MEMORIAL HOSPITALNALLELY Gutiérrez Performed By: #### P HOS, MG, BNP, HS TROP, CMP, PTT, PT, CBC ####[address] [address] [facility] Troponin I.cardiac [Mass/vol ume] in Serum or Plasma by Detection limit <= 0.01 ng/Ordered By: Juli Thomas on 07-28-2024 Troponin I.cardiac DL <= 0.01 ng/mL [Mass/Vol] Troponin I.cardiac [Mass/volume] in Serum or Plasma by Detection limit <= 0.01 ng/ 0.0-20.0 [facility] Urobilinogen Test strip (U) [Mass/Vol]Ordered By: Juli Thomas on 07-28-2024 Urobilinogen (U) [Mass/Vol] Urobilinogen [Mass/volume] in Urine by Test strip Normal [facility] XR chest 1V portableon 07-28 XR chest 1V portable Normal [facility] aPTT in Platelet poor plasma by Coagulation assayOrdered By: Juli Thomas on 07-28-2024 aPTT Coag (PPP) [Time] Activated partial thromboplastin time (aPTT) in platelet poor plasma by coagulation a 25.1-36.5 [facility] pH Test strip (U)Ordered By: Juli Thomas on 07-28-2024 pH (U) pH of Urine by Test strip 5.0-9.0 [facility] BASIC METABOLIC PANELon Calcium [Mass/Vol] 8.8 mg/dL Normal 8.6-10.3 [facility] Comment on above: Order Comment: FASTI NG:YES FASTING: YES Performed By: #### 1 0165 #### [facility] [address], [address] [place] [address] [employer] Machine Operator: Daniele Carlson MD Chloride [Moles/Vol] 103 mmol/L Normal 98-110 [facility] Comment on above: Order Comment: FASTI NG:YES FASTING: YES Performed By: #### 1 0165 #### [facility] [address], [address] [place] [address] [employer] Operator: Daniele Carlson MD CO2 [Moles/Vol] 30 mmol/L Normal 20-32 [facility] Comment on above: Order Comment: FASTI NG:YES FASTING: YES Performed By: #### 1 0165 #### [facility] [place] [address] [employer] Operator: Daniele Carlson MD Creatinine [Mass/Vol] 1.18 mg/dL Normal 0.70-1.22 [facility] Comment on above: Order Comment: FASTI NG:YES FASTING: YES Performed By: #### 1 0165 #### [facility] [place] [address] [employer] Operator: Daniele Carlson MD GFR/1.73 sq M.predicted among non-blacks MDRD (S/P/Bld) [Vol rate/Area] 62 mL/min/{1.73_m2} Normal > OR = 60 [facility] Comment on above: Order Comment: FASTI NG:YES FASTING: YES Performed By: #### 1 0165 #### [facility] [place] [address] [employer] Operator: Daniele Carlson MD Glucose [Mass/Vol] 99 mg/dL Normal 65-99 [facility] Comment on above: Order Comment: FASTI NG:YES FASTING: YES Result Comment: Fasting reference interval Performed By: #### 1 0165 #### [facility] [place] [address] [employer] Operator: Daniele Carlson MD Potassium [Moles/Vol] 3.3 mmol/L Low 3.5-5.[address] [facility] [address] [facility] Comment on above: Order Comment: FASTI NG:YES FASTING: YES Performed By: #### 1 0165 #### [facility] [place] [address] [employer] Operator: Daniele Carlson MD Sodium [Moles/Vol] 143 mmol/L Normal 135-146 [facility] Comment on above: Order Comment: FASTI NG:YES FASTING: YES Performed By: #### 1 0165 #### [facility] [place] [address] [employer] Operator: Daniele Carlson MD Urea nitrogen [Mass/Vol] 26 mg/dL High 7-25 [facility] Comment on above: Order Comment: FASTI NG:YES FASTING: YES Performed By: #### 1 0165 #### [facility] [place] [address] [employer] Operator: Daniele Carlson MD Urea nitrogen/Creatinine [Mass ratio] 22 mg/mg Normal 6-22 [facility] Comment on above: Order Comment: FASTI NG:YES FASTING: YES Performed By: #### 1 0165 #### [facility] [place] [address] [employer] Operator: Daniele Carlson MD Basic Metabolic Panelon 11-2 Anion gap [Moles/Vol] 9.9 mmol/L Normal 6.0-15.0 [facility] Comment on above: Performed By: #### B MP, MG, CBC ####[facility] [place] [phone] [facility] Calcium [Mass/Vol] 8.8 mg/dL Normal 8.6-10.3 [facility] Comment on above: Performed By: #### B MP, MG, CBC ####[place] [id number] [facility] Chloride [Moles/Vol] 109 mmol/L High 98-107 [facility] Comment on above: Performed By: #### B MP, MG, CBC ####[place] [id number] [facility] CO2 [Moles/Vol] 27.4 mmol/L Normal 21.0-31.0 [facility] Comment on above: Performed By: #### B MP, MG, CBC ####[address] Creatinine [Mass/Vol] 1.08 mg/dL Normal 0.70-1.30 [facility] Comment on above: Performed By: #### B MP, MG, CBC ####[place] [address] [place] Creatinine Clr Calc Pharmacy 75.22 Normal [facility] Comment on above: Performed By: #### B MP, MG, CBC ####[place] [id number] [place] GFR/1.73 sq M.predicted MDRD (S/P/Bld) [Vol rate/Area] mL/min/{1.73_m2} Normal [facility] Comment on above: Performed By: #### B MP, MG, CBC ####[place] [id number] [facility] Glucose [Mass/Vol] 93 mg/dL Normal 70-100 [facility] Comment on above: Result Comment: [place] Glucose Reference Range is dependent on time and content of last meal. Glucose of more than 200 mg/dL in a nonstressed, ambulatory subject supports the diagnosis of Diabetes Mellitus. ADA recommended reference range Performed By: #### B MP, MG, CBC ####[address] [place] [address] [place] Potassium [Moles/Vol] 3.3 mmol/L Low 3.5-5.1 [facility] Comment on above: Performed By: #### B MP, MG, CBC ####[facility] Sodium [Moles/Vol] 143 mmol/L Significant change down 136-145 [facility] Comment on above: Performed By: #### B MP, MG, CBC ####[facility] Urea nitrogen [Mass/Vol] 21 mg/dL Normal 7-25 [facility] Comment on above: Performed By: #### B MP, MG, CBC ####[facility] Basophils Auto (Bld) [#/Vol] Ordered By: Danie Jaramillo on 07-12-2024 Basophils (Bld) [#/Vol] Automated basophil count 0.0-0.[address] [facility] Basophils/100 WBC Auto (Bld) Ordered By: Danie Jaramillo on 07-12-2024 Basophils/100 WBC (Bld) Automated basophil % . [facility] Calcium [Mass/volume] in Ser um or PlasmaOrdered By: Danie Jaramillo on 07-12-2024 Calcium [Mass/Vol] Calcium [Mass/volume ] in Serum or Plasma 8.6-10.3 [facility] Carbon dioxide, total [Moles /volume] in Serum or PlasmaOrdered By: Danie Jaramillo on 07-12-2024 CO2 [Moles/Vol] Carbon dioxide, tota l [Moles/volume] in Serum or Plasma 21.0-31.0 [facility] Chloride [Moles/volume] in S [place] or PlasmaOrdered By: Danie Jaramillo on 07-12-2024 Chloride [Moles/Vol] Chloride [Moles/vol ume] in Serum or Plasma High 98-107 [facility] Complete Blood Count Auto Di ffon 07-12-2024 Basophils (Bld) [#/Vol] 0.0 10*3/uL Normal 0.0-0.2 [facility] Comment on above: Result Comment: PERF ORMED BY:[address] [place], [place] [id number] MEDICAL DIRECTORRHONDA MCLEAN M.D. Performed By: #### B MP, MG, CBC ####[place] [id number] [facility] Basophils/100 WBC (Bld) 0.5 % Normal . [facility] Comment on above: Performed By: #### B MP, MG, CBC ####[place] [id number] [facility] Eosinophils (Bld) [#/Vol] 0.2 10*3/uL Normal 0.0-0.45 [facility] Comment on above: Performed By: #### B MP, MG, CBC ####[address] Eosinophils/100 WBC (Bld) 2.1 % Normal . [facility] Comment on above: Performed By: #### B MP, MG, CBC ####[address] Erythrocyte distribution width (RBC) [Ratio] 14.5 % Normal 12.0-14.8 [facility] Comment on above: Performed By: #### B MP, MG, CBC ####[place] [id number] [facility] Hematocrit (Bld) [Volume fraction] 36.1 % Low 38.8-50.0 [facility] Comment on above: Performed By: #### B MP, MG, CBC ####[place] [id number] [facility] Hemoglobin (Bld) [Mass/Vol] 12.2 g/dL Low 13.0-17.0 [facility] Comment on above: Performed By: #### B MP, MG, CBC ####[address] Lymphocytes (Bld) [#/Vol] 1.5 10*3/uL Normal 1.00-4.8 [facility] Comment on above: Performed By: #### B MP, MG, CBC ####[address] Lymphocytes/100 WBC (Bld) 18.6 % Normal . [facility] Comment on above: Performed By: #### B MP, MG, CBC ####[address] MCH (RBC) [Entitic mass] 30.8 pg Normal 27.5-35.2 [facility] Comment on above: Performed By: #### B MP, MG, CBC ####[address] MCV (RBC) [Entitic vol] 91.0 fL Normal 83.5-101 [facility] Comment on above: Performed By: #### B MP, MG, CBC ####[address] Mean Corpuscular HGB Conc 33.8 g/dL Normal 32.5-35.6 [facility] Comment on above: Performed By: #### B MP, MG, CBC ####[address] Monocytes (Bld) [#/Vol] 0.8 10*3/uL Normal 0.0-0.8 [facility] Comment on above: Performed By: #### B MP, MG, CBC ####[address] Monocytes/100 WBC (Bld) 10.5 % Normal . [facility] Comment on above: Performed By: #### B MP, MG, CBC ####[address] Neutrophils (Bld) [#/Vol] 5.5 10*3/uL Normal 1.8-7.7 [facility] Comment on above: Performed By: #### B MP, MG, CBC ####[address] Neutrophils/100 WBC (Bld) 68.3 % Normal . [facility] Comment on above: Performed By: #### B MP, MG, CBC ####[address] NRBC% 0.1 /100{WBC} Normal 0-0.5 [facility] Comment on above: Performed By: #### B MP, MG, CBC ####[address] Platelet mean volume (Bld) [Entitic vol] 8.0 fL Normal 6.6-10.1 [facility] Comment on above: Performed By: #### B MP, MG, CBC ####[address] Platelets (Bld) [#/Vol] 208 10*3/uL Normal 150-450 [facility] Comment on above: Performed By: #### B MP, MG, CBC ####[address] RBC (Bld) [#/Vol] 3.96 10*6/uL Normal 3.90-5.60 [facility] Comment on above: Performed By: #### B MP, MG, CBC ####[address] WBC (Bld) [#/Vol] 8.1 10*3/uL Normal 4.1-10.5 [facility] Comment on above: Performed By: #### B MP, MG, CBC ####[address] Creatinine [Mass/volume] in Serum or PlasmaOrdered By: Danie Jaramillo on 07-12-2024 Creatinine [Mass/Vol] Creatinine [Mass/v olume] in Serum or Plasma 0.70-1.30 [facility] Eosinophils Auto (Bld) [#/Vo l]Ordered By: Danie Jaramillo on 07-12-2024 Eosinophils (Bld) [#/Vol] Automated eosinophil count 0.0-0.45 [facility] Eosinophils/100 WBC Auto (Bl d)Ordered By: Danie Jaramillo on 07-12-2024 Eosinophils/100 WBC (Bld) Automated eosinophil % . [facility] Erythrocyte distribution wid th Auto (RBC) [Ratio]Ordered By: Danie Jaramillo on 07-12-2024 Erythrocyte distribution width (RBC) [Ratio] Erythrocyte distribution width [Ratio] by Automated count 12.0-14.8 [facility] Glucose [Mass/volume] in Ser um or PlasmaOrdered By: Danie Jaramillo on 07-12-2024 Glucose [Mass/Vol] Glucose [Mass/volume ] in Serum or Plasma 70-100 [facility] Hematocrit Auto (Bld) [Volum e fraction]Ordered By: Danie Jaramillo on 07-12-2024 Hematocrit (Bld) [Volume fraction] Hematocrit [Volume Fraction] of Blood by Automated count Low 38.8-50.0 [facility] Hemoglobin [Mass/volume] in BloodOrdered By: Danie Jaramillo on 07-12-2024 Hemoglobin (Bld) [Mass/Vol] Hemoglobin [Mass/volume] in Blood Low 13.0-17.0 [facility] Leukocytes [#/volume] correc blessing for nucleated erythrocytes in Blood by Automated counOrdered By: Danie Jaramillo on 07-12-2024 WBC corrected for nucl RBC Auto (Bld) [#/Vol] Leukocytes [#/volume] corrected for nucleated erythrocytes in Blood by Automated coun 4.1-10.5 [facility] Lymphocytes Auto (Bld) [#/Vo l]Ordered By: Danie Jaramillo on 07-12-2024 Lymphocytes (Bld) [#/Vol] Lymphocytes [#/volume] in Blood by Automated count 1.00-4.8 [facility] Lymphocytes/100 WBC Auto (Bl d)Ordered By: Danie Jaramillo on 07-12-2024 Lymphocytes/100 WBC (Bld) Lymphocytes/100 leukocytes in Blood by Automated count . [facility] MCH Auto (RBC) [Entitic mass ]Ordered By: Danie Jaramillo on 07-12-2024 MCH (RBC) [Entitic mass] MCH [Entitic mass] by Automated count 27.5-35.2 [facility] MCHC Auto (RBC) [Mass/Vol]Or dered By: Danie Jaramillo on 07-12-2024 MCHC (RBC) [Mass/Vol] MCHC [Mass/volume] by Automated count 32.5-35.6 [facility] MCV Auto (RBC) [Entitic vol] Ordered By: Danie Jaramillo on 07-12-2024 MCV (RBC) [Entitic vol] MCV [Entitic volume] by Automated count 83.5-101 [facility] Magnesiumon 07-12-2024 Magnesium [Mass/Vol] 1.6 mg/dL Low 1.9-2.7 [facility] Comment on above: Result Comment: PERF ORMED BY:[facility] [place], [place] [phone] MEDICAL DIRECTORRHONDA MCLEAN M.D. Performed By: #### B MP, MG, CBC ####[facility] [place] [address] [facility] Magnesium [Mass/volume] in [place] or PlasmaOrdered By: Danie Jaramillo on 07-12-2024 Magnesium [Mass/Vol] Magnesium [Mass/vol ume] in Serum or Plasma Low 1.9-2.7 [facility] Monocytes Auto (Bld) [#/Vol] Ordered By: Danie Jaramillo on 07-12-2024 Monocytes (Bld) [#/Vol] Automated blood monocyte count 0.0-0.8 [facility] Monocytes/100 WBC Auto (Bld) Ordered By: Danie Jaramillo on 07-12-2024 Monocytes/100 WBC (Bld) Automated monocyte % . [facility] Neutrophils Auto (Bld) [#/Vo l]Ordered By: Danie Jaramillo on 07-12-2024 Neutrophils (Bld) [#/Vol] Neutrophils [#/volume] in Blood by Automated count 1.8-7.7 [facility] Neutrophils/100 WBC Auto (Bl d)Ordered By: Danie Jaramillo on 07-12-2024 Neutrophils/100 WBC (Bld) Automated neutrophil % . [facility] No Panel InformationOrdered By: Danie Jaramillo on 07-12-2024 > 60.0 mL/Min [facility] 75.22 [facility] Nucleated erythrocytes [Pres ence] in Blood by Automated countOrdered By: Danie Jaramillo on 07-12-2024 Nucleated RBC Auto Ql (Bld) Nucleated erythrocytes [Presence] in Blood by Automated count 0-0.5 [facility] Platelet mean volume Auto (B ld) [Entitic vol]Ordered By: Danie Jaramillo on 07-12-2024 Platelet mean volume (Bld) [Entitic vol] Platelet mean volume [Entitic volume] in Blood by Automated count 6.6-10.1 [facility] Platelets Auto (Bld) [#/Vol] Ordered By: Danie Jaramillo on 07-12-2024 Platelets (Bld) [#/Vol] Platelets [#/volume] in Blood by Automated count 150-450 [facility] Potassium [Moles/volume] in Serum or PlasmaOrdered By: Danie Jaramillo on 07-12-2024 Potassium [Moles/Vol] Potassium [Moles/v olume] in Serum or Plasma Low 3.5-5.1 [facility] RBC Auto (Bld) [#/Vol]Ordere d By: Danie Jaramillo on 07-12-2024 RBC (Bld) [#/Vol] Erythrocytes [#/volu me] in Blood by Automated count 3.90-5.60 [facility] Serum or plasma anion gap de terminationOrdered By: Danie Jaramillo on 07-12-2024 Anion gap [Moles/Vol] Serum or plasma an ion gap determination 6.0-15.0 [facility] Sodium [Moles/volume] in Ser um or PlasmaOrdered By: Danie Jaramillo on 07-12-2024 Sodium [Moles/Vol] Sodium [Moles/volume ] in Serum or Plasma Significant change down 136-145 [facility] Urea nitrogen [Mass/volume] in Serum or PlasmaOrdered By: Danie Jaramillo on 07-12-2024 Urea nitrogen [Mass/Vol] Urea nitrogen [Mass/volume] in Serum or Plasma 7-25 [facility] WBC Auto (Bld) [#/Vol]Ordere d By: Danie Jaramillo on 07-12-2024 WBC (Bld) [#/Vol] Leukocytes [#/volume ] in Blood by Automated count 4.1-10.5 [facility] Basic Metabolic Panelon 11-2 Anion gap [Moles/Vol] Not performed Normal 6.0-15.0 [facility] Comment on above: Performed By: #### C BC, MG, BMP ####[address] [place] [address] [facility] Calcium [Mass/Vol] 8.9 mg/dL Normal 8.6-10.3 [facility] Comment on above: Performed By: #### C BC, MG, BMP ####[address] [place] [address] [facility] Chloride [Moles/Vol] 110 mmol/L High 98-107 [facility] Comment on above: Performed By: #### C BC, MG, BMP ####[address] [address] [facility] CO2 [Moles/Vol] 27.8 mmol/L Normal 21.0-31.0 [facility] Comment on above: Performed By: #### C BC, MG, BMP ####[address] [address] [place] Creatinine [Mass/Vol] 1.07 mg/dL Normal 0.70-1.30 [facility] Comment on above: Performed By: #### C BC, MG, BMP ####[address] [address] [place] Creatinine Clr Calc Pharmacy 75.55 Normal [facility] Comment on above: Performed By: #### C BC, MG, BMP ####[address] [address] [place] GFR/1.73 sq M.predicted MDRD (S/P/Bld) [Vol rate/Area] mL/min/{1.73_m2} Normal [facility] Comment on above: Performed By: #### C BC, MG, BMP ####[place] [id number] [facility] Glucose [Mass/Vol] 100 mg/dL Normal 70-100 [facility] Comment on above: Result Comment: [facility] Glucose Reference Range is dependent on time and content of last meal. Glucose of more than 200 mg/dL in a nonstressed, ambulatory subject supports the diagnosis of Diabetes Mellitus. ADA recommended reference range Performed By: #### C BC MG, BMP ####[address] [address] Potassium Normal 3.5-5.1 [facility] Comment on above: Result Comment: Spec imen hemolyzed, redraw requested Performed By: #### C VERÓNICA, MG, BMP ####[address] Sodium [Moles/Vol] 136 mmol/L Normal 136-145 [facility] Comment on above: Performed By: #### C VERÓNICA MG, BMP ####[address] Urea nitrogen [Mass/Vol] 25 mg/dL Normal 7-25 [facility] Comment on above: Performed By: #### C VERÓNICA MG, BMP ####[id number] [facility] Complete Blood Count Auto Di ffon 07-11-2024 Basophils (Bld) [#/Vol] 0.0 10*3/uL Normal 0.0-0.2 [facility] Comment on above: Result Comment: PERF ORMED BY:[address] [place], [place] [phone] MEDICAL DIRECTORRHONDA MCLEAN M.D. Performed By: #### C BC, MG, BMP ####[id number] [facility] Basophils/100 WBC (Bld) 0.5 % Normal . [facility] Comment on above: Performed By: #### C BC MG, BMP ####[address] [id number] [facility] Eosinophils (Bld) [#/Vol] 0.1 10*3/uL Normal 0.0-0.45 [facility] Comment on above: Performed By: #### C BC, MG, BMP ####[address] Eosinophils/100 WBC (Bld) 1.3 % Normal . [facility] Comment on above: Performed By: #### C BC, MG, BMP ####[address] Erythrocyte distribution width (RBC) [Ratio] 15.1 % High 12.0-14.8 [facility] Comment on above: Performed By: #### C BC, MG, BMP ####[address] Hematocrit (Bld) [Volume fraction] 37.7 % Low 38.8-50.0 [facility] Comment on above: Performed By: #### C BC, MG, BMP ####[address] Hemoglobin (Bld) [Mass/Vol] 12.6 g/dL Low 13.0-17.0 [facility] Comment on above: Performed By: #### C BC, MG, BMP ####[address] Lymphocytes (Bld) [#/Vol] 1.4 10*3/uL Normal 1.00-4.8 [facility] Comment on above: Performed By: #### C BC, MG, BMP ####[address] Lymphocytes/100 WBC (Bld) 19.1 % Normal . [facility] Comment on above: Performed By: #### C BC, MG, BMP ####[address] MCH (RBC) [Entitic mass] 30.6 pg Normal 27.5-35.2 [facility] Comment on above: Performed By: #### C BC, MG, BMP ####[id number] [facility] MCV (RBC) [Entitic vol] 91.4 fL Normal 83.5-101 [facility] Comment on above: Performed By: #### C BC, MG, BMP ####[address] Mean Corpuscular HGB Conc 33.5 g/dL Normal 32.5-35.6 [facility] Comment on above: Performed By: #### C BC, MG, BMP ####[address] Monocytes (Bld) [#/Vol] 0.7 10*3/uL Normal 0.0-0.8 [facility] Comment on above: Performed By: #### C BC, MG, BMP ####[address] Monocytes/100 WBC (Bld) 9.1 % Normal . [facility] Comment on above: Performed By: #### C BC, MG, BMP ####[address] Neutrophils (Bld) [#/Vol] 5.2 10*3/uL Normal 1.8-7.7 [facility] Comment on above: Performed By: #### C BC, MG, BMP ####[address] Neutrophils/100 WBC (Bld) 70.0 % Normal . [facility] Comment on above: Performed By: #### C BC, MG, BMP ####[address] NRBC% 0.1 /100{WBC} Normal 0-0.5 [facility] Comment on above: Performed By: #### C BC, MG, BMP ####[address] Platelet mean volume (Bld) [Entitic vol] 8.0 fL Normal 6.6-10.1 [facility] Comment on above: Performed By: #### C BC, MG, BMP ####[address] Platelets (Bld) [#/Vol] 217 10*3/uL Normal 150-450 [facility] Comment on above: Performed By: #### C BC, MG, BMP ####[address] RBC (Bld) [#/Vol] 4.13 10*6/uL Normal 3.90-5.60 [facility] Comment on above: Performed By: #### C BC, MG, BMP ####[address] WBC (Bld) [#/Vol] 7.4 10*3/uL Normal 4.1-10.5 [facility] Comment on above: Performed By: #### C BC, MG, BMP ####[address] Magnesiumon 07-11-2024 Magnesium Normal 1.9-2.7 [facility] Comment on above: Result Comment: Spec imen hemolyzed, redraw requestedPERFORMED BY:[address] [place], [place] [phone] MEDICAL DIRECTORRHONDA MCLEAN M.D. Performed By: #### C BC, MG, BMP ####[address] Redraw Magnesiumon 4 Magnesium [Mass/Vol] 1.6 mg/dL Low 1.9-2.7 [facility] Comment on above: Result Comment: PERF ORMED BY:[address] [place], [place] [phone] MEDICAL DIRECTORRHONDA MCLEAN M.D. Performed By: #### R EDRAW MG, REDRAW K ####[place] [id number] [facility] Redraw Potassiumon 4 Potassium [Moles/Vol] 3.5 mmol/L Normal 3.5-5.1 [facility] Comment on above: Performed By: #### R EDRAW MG, REDRAW K ####[place] [id number] [facility] Basic Metabolic Panelon 11-2 Anion gap [Moles/Vol] 11.4 mmol/L Normal 6.0-15.0 [facility] Comment on above: Performed By: #### M G, CBC, BMP ####[place] [id number] [facility] Calcium [Mass/Vol] 9.0 mg/dL Normal 8.6-10.3 [facility] Comment on above: Performed By: #### Marcial G, CBC, BMP ####[place] [id number] [facility] Chloride [Moles/Vol] 106 mmol/L Normal 98-107 [facility] Comment on above: Performed By: #### Marcial G, CBC, BMP ####[id number] [facility] CO2 [Moles/Vol] 27.8 mmol/L Normal 21.0-31.0 [facility] Comment on above: Performed By: #### Marcial Young, CBC, BMP ####[place] [id number] [facility] Creatinine [Mass/Vol] 1.29 mg/dL Significan t change down 0.70-1.30 [facility] Comment on above: Performed By: #### Marcial Young, CBC, BMP ####[place] [id number] [facility] Creatinine Clr Calc Pharmacy 62.66 Normal [facility] Comment on above: Performed By: #### M G, CBC, BMP ####[place] [place] [id number] [facility] Estimated GFR 56.052 mL/Min Normal [facility] Comment on above: Performed By: #### M G, CBC, BMP ####[place] [address] [facility] Glucose [Mass/Vol] 110 mg/dL High 70-100 [facility] Comment on above: Result Comment: [place] Glucose Reference Range is dependent on time and content of last meal. Glucose of more than 200 mg/dL in a nonstressed, ambulatory subject supports the diagnosis of Diabetes Mellitus. ADA recommended reference range Performed By: #### M G, CBC, BMP ####[address] [place] [id number] [facility] Potassium [Moles/Vol] 4.2 mmol/L Normal 3.5-5.1 [facility] Comment on above: Performed By: #### M Hannah, CBC, BMP ####[address] Sodium [Moles/Vol] 141 mmol/L Normal 136-145 [facility] Comment on above: Performed By: #### Marcial Young, CBC, BMP ####[place] [address] [facility] Urea nitrogen [Mass/Vol] 29 mg/dL High 7-25 [facility] Comment on above: Performed By: #### Marcial Young, CBC, BMP ####[place] [id number] [facility] Complete Blood Count Auto Di ffon 07-10-2024 Basophils (Bld) [#/Vol] 0.0 10*3/uL Normal 0.0-0.2 [facility] Comment on above: Result Comment: PERF ORMED BY:[address] [place], [place] [phone] MEDICAL DIRECTORRHONDA MCLEAN M.D. Performed By: #### Marcial G, CBC, BMP ####[place] [address] [facility] Basophils/100 WBC (Bld) 0.6 % Normal . [facility] Comment on above: Performed By: #### Marcial G, CBC, BMP ####[place] [id number] [facility] Eosinophils (Bld) [#/Vol] 0.0 10*3/uL Normal 0.0-0.45 [facility] Comment on above: Performed By: #### Marcial G, CBC, BMP ####[place] [id number] [facility] Eosinophils/100 WBC (Bld) 0.4 % Normal . [facility] Comment on above: Performed By: #### M G, CBC, BMP ####[place] [id number] [facility] Erythrocyte distribution width (RBC) [Ratio] 14.7 % Normal 12.0-14.8 [facility] Comment on above: Performed By: #### M G, CBC, BMP ####[address] Hematocrit (Bld) [Volume fraction] 37.6 % Low 38.8-50.0 [facility] Comment on above: Performed By: #### M G, CBC, BMP ####[place] [address] [facility] Hemoglobin (Bld) [Mass/Vol] 12.7 g/dL Low 13.0-17.0 [facility] Comment on above: Performed By: #### M G, CBC, BMP ####[address] Lymphocytes (Bld) [#/Vol] 1.1 10*3/uL Normal 1.00-4.8 [facility] Comment on above: Performed By: #### M G, CBC, BMP ####[place] [place] [id number] [facility] Lymphocytes/100 WBC (Bld) 13.3 % Normal . [facility] Comment on above: Performed By: #### M G, CBC, BMP ####[place] [id number] [facility] MCH (RBC) [Entitic mass] 31.1 pg Normal 27.5-35.2 [facility] Comment on above: Performed By: #### M G, CBC, BMP ####[place] [id number] [facility] MCV (RBC) [Entitic vol] 91.9 fL Normal 83.5-101 [facility] Comment on above: Performed By: #### M G, CBC, BMP ####[address] Mean Corpuscular HGB Conc 33.9 g/dL Normal 32.5-35.6 [facility] Comment on above: Performed By: #### M G, CBC, BMP ####[address] Monocytes (Bld) [#/Vol] 0.8 10*3/uL Normal 0.0-0.8 [facility] Comment on above: Performed By: #### M G, CBC, BMP ####[address] Monocytes/100 WBC (Bld) 10.5 % Normal . [facility] Comment on above: Performed By: #### M G, CBC, BMP ####[address] Neutrophils (Bld) [#/Vol] 6.0 10*3/uL Normal 1.8-7.7 [facility] Comment on above: Performed By: #### M G, CBC, BMP ####[address] Neutrophils/100 WBC (Bld) 75.2 % Normal . [facility] Comment on above: Performed By: #### M G, CBC, BMP ####[address] NRBC% 0.1 /100{WBC} Normal 0-0.5 [facility] Comment on above: Performed By: #### M G, CBC, BMP ####[address] Platelet mean volume (Bld) [Entitic vol] 8.2 fL Normal 6.6-10.1 [facility] Comment on above: Performed By: #### M G, CBC, BMP ####[address] Platelets (Bld) [#/Vol] 210 10*3/uL Normal 150-450 [facility] Comment on above: Performed By: #### M G, CBC, BMP ####[address] RBC (Bld) [#/Vol] 4.09 10*6/uL Normal 3.90-5.60 [facility] Comment on above: Performed By: #### M G, CBC, BMP ####[address] WBC (Bld) [#/Vol] 8.0 10*3/uL Normal 4.1-10.5 [facility] Comment on above: Performed By: #### M G, CBC, BMP ####[place] [id number] [facility] Magnesiumon 07-10-2024 Magnesium [Mass/Vol] 1.9 mg/dL Normal 1.9-2.7 [facility] Comment on above: Result Comment: PERF ORMED BY:[address] [place], [place] [phone] MEDICAL DIRECTORRHONDA MCLEAN M.D. Performed By: #### M G, CBC, BMP ####[place] [id number] [facility] Alanine aminotransferase [En zymatic activity/volume] in Serum or PlasmaOrdered By: Juli Thomas on 07-09-2024 ALT [Catalytic activity/Vol] Alanine aminotransferase [Enzymatic activity/volume] in Serum or Plasma [facility] Albumin [Mass/volume] in Ser um or Plasma by Bromocresol green (BCG) dye binding methoOrdered By: Juli Thomas on 07-09-2024 Albumin BCG dye [Mass/Vol] Albumin [Mass/volume] in Serum or Plasma by Bromocresol green (BCG) dye binding metho 3.5-5.7 [facility] Alkaline phosphatase [Enzyma tic activity/volume] in Serum or PlasmaOrdered By: Juli Thomas on 07-09-2024 ALP [Catalytic activity/Vol] Alkaline phosphatase [Enzymatic activity/volume] in Serum or Plasma 34-104 [facility] Appearance of UrineOrdered B y: Juli Thomas on 07-09-2024 Appearance (U) Urine appearance Clear [facility] Aspartate aminotransferase [ Enzymatic activity/volume] in Serum or PlasmaOrdered By: Juli Adiadeborah on 07-09-2024 AST [Catalytic activity/Vol] Aspartate aminotransferase [Enzymatic activity/volume] in Serum or Plasma 13-39 [facility] Bacteria [Presence] in Urine by AutomatedOrdered By: Juli Thomas on 07-09-2024 Bacteria Auto Ql (U) Bacteria [Presence] in Urine by Automated None Seen [facility] Basophils Auto (Bld) [#/Vol] Ordered By: Juli Safnjmagdalena on 07-09-2024 Basophils (Bld) [#/Vol] Automated basophil count 0.0-0.[address] [facility] Basophils/100 WBC Auto (Bld) Ordered By: Juli Safadena [facility] on 07-09-2024 Basophils/100 WBC (Bld) Automated basophil % . [facility] Bilirubin Test strip Ql (U)O rdered By: Juli Thomas on 07-09-2024 Bilirubin Ql (U) Bilirubin.total [Pre sence] in Urine by Test strip Negative [facility] Bilirubin.total [Mass/volume ] in Serum or PlasmaOrdered By: Juil Thomas on 07-09-2024 Bilirubin [Mass/Vol] Bilirubin.total [Mass/volume] in Serum or Plasma 0.3-1.0 [facility] C reactive protein [Mass/vol ume] in Serum or PlasmaOrdered By: Juli Thomas on 07-09-2024 CRP [Mass/Vol] C reactive protein [Mass/volume] in Serum or Plasma High 0.0-0.5 [facility] C-Reactive Proteinon 024 C-Reactive Protein 3.1 mg/dL High 0.0-0.5 [facility] Comment on above: Result Comment: PERF ORMED BY:[facility] [place], [place] [phone] MEDICAL DIRECTORRHONDA MCLEAN M.D. Performed By: #### C RP, HS TROP, CBC, MG, PT, PTT, CMP ####[address] [place] [address] [facility] [address] angio neckon 07-09-2024 CT angio neck Normal [facility] CT head stroke alert wo cono n 07-09-2024 CT head stroke alert wo con Normal [facility] Calcium [Mass/volume] in Ser um or PlasmaOrdered By: Juli Thomas on 07-09-2024 Calcium [Mass/Vol] Calcium [Mass/volume ] in Serum or Plasma 8.6-10.3 [facility] Carbon dioxide, total [Moles /volume] in Serum or PlasmaOrdered By: Juli Thomas on 07-09-2024 CO2 [Moles/Vol] Carbon dioxide, tota l [Moles/volume] in Serum or Plasma 21.0-31.0 [facility] Chloride [Moles/volume] in [place] or PlasmaOrdered By: Juli Thomas on 07-09-2024 Chloride [Moles/Vol] Chloride [Moles/vol ume] in Serum or Plasma 98-107 [facility] Color Auto (U)Ordered By: Co magan Thomas on 07-09-2024 Color (U) Color of Urine by Auto Yellow [facility] Complete Blood Count Auto Di ffon 07-09-2024 Basophils (Bld) [#/Vol] 0.0 10*3/uL Normal 0.0-0.2 [facility] Comment on above: Result Comment: PERF ORMED BY:[address] [place] [place], [place] [phone] MEDICAL DIRECTORRHONDA MCLEAN M.D. Performed By: #### C RP, HS TROP, CBC, MG, PT, PTT, CMP ####[address] [place] [id number] [facility] Basophils/100 WBC (Bld) 0.4 % Normal . [facility] Comment on above: Performed By: #### C RP, HS TROP, CBC, MG, PT, PTT, CMP ####[facility] [address] Eosinophils (Bld) [#/Vol] 0.1 10*3/uL Normal 0.0-0.45 [facility] Comment on above: Performed By: #### C RP, HS TROP, CBC, MG, PT, PTT, CMP ####[address] Eosinophils/100 WBC (Bld) 0.6 % Normal . [facility] Comment on above: Performed By: #### C RP, HS TROP, CBC, MG, PT, PTT, CMP ####[address] Erythrocyte distribution width (RBC) [Ratio] 15.0 % High 12.0-14.8 [facility] Comment on above: Performed By: #### C RP, HS TROP, CBC, MG, PT, PTT, CMP ####[address] Hematocrit (Bld) [Volume fraction] 39.5 % Normal 38.8-50.0 [facility] Comment on above: Performed By: #### C RP, HS TROP, CBC, MG, PT, PTT, CMP ####[address] Hemoglobin (Bld) [Mass/Vol] 13.1 g/dL Normal 13.0-17.0 [facility] Comment on above: Performed By: #### C RP, HS TROP, CBC, MG, PT, PTT, CMP ####[address] Lymphocytes (Bld) [#/Vol] 0.7 10*3/uL Low 1.00-4.8 [facility] Comment on above: Performed By: #### C RP, HS TROP, CBC, MG, PT, PTT, CMP ####[address] Lymphocytes/100 WBC (Bld) 6.3 % Normal . [facility] Comment on above: Performed By: #### C RP, HS TROP, CBC, MG, PT, PTT, CMP ####[address] MCH (RBC) [Entitic mass] 30.8 pg Normal 27.5-35.2 [facility] Comment on above: Performed By: #### C RP, HS TROP, CBC, MG, PT, PTT, CMP ####[address] MCV (RBC) [Entitic vol] 92.6 fL Normal 83.5-101 [facility] Comment on above: Performed By: #### C RP, HS TROP, CBC, MG, PT, PTT, CMP ####[address] Mean Corpuscular HGB Conc 33.2 g/dL Normal 32.5-35.6 [facility] Comment on above: Performed By: #### C RP, HS TROP, CBC, MG, PT, PTT, CMP ####[address] Monocytes (Bld) [#/Vol] 1.3 10*3/uL High 0.0-0.8 [facility] Comment on above: Performed By: #### C RP, HS TROP, CBC, MG, PT, PTT, CMP ####[address] Monocytes/100 WBC (Bld) 18.70 % Normal 0.00-20.00 [facility] Comment on above: Performed By: #### C RP, HS TROP, CBC, MG, PT, PTT, CMP ####[address] Monocytes/100 WBC (Bld) 12.2 % Normal . [facility] Comment on above: Performed By: #### C RP, HS TROP, CBC, MG, PT, PTT, CMP ####[address] Neutrophils (Bld) [#/Vol] 8.4 10*3/uL High 1.8-7.7 [facility] Comment on above: Performed By: #### C RP, HS TROP, CBC, MG, PT, PTT, CMP ####[address] Neutrophils/100 WBC (Bld) 80.5 % Normal . [facility] Comment on above: Performed By: #### C RP, HS TROP, CBC, MG, PT, PTT, CMP ####[address] NRBC% 0.0 /100{WBC} Normal 0-0.5 [facility] Comment on above: Performed By: #### C RP, HS TROP, CBC, MG, PT, PTT, CMP ####[address] Platelet mean volume (Bld) [Entitic vol] 7.9 fL Normal 6.6-10.1 [facility] Comment on above: Performed By: #### C RP, HS TROP, CBC, MG, PT, PTT, CMP ####[address] Platelets (Bld) [#/Vol] 229 10*3/uL Normal 150-450 [facility] Comment on above: Performed By: #### C RP, HS TROP, CBC, MG, PT, PTT, CMP ####[address] RBC (Bld) [#/Vol] 4.27 10*6/uL Normal 3.90-5.60 [facility] Comment on above: Performed By: #### C RP, HS TROP, CBC, MG, PT, PTT, CMP ####[address] WBC (Bld) [#/Vol] 10.4 10*3/uL Normal 4.1-10.5 [facility] Comment on above: Performed By: #### C RP, HS TROP, CBC, MG, PT, PTT, CMP ####[address] Comprehensive Metabolic Pane rc 07-09-2024 Albumin [Mass/Vol] 3.5 g/dL Normal 3.5-5.7 [facility] Comment on above: Performed By: #### C RP, HS TROP, CBC, MG, PT, PTT, CMP ####[address] Albumin/Globulin [Mass ratio] 1.3 {ratio} Normal [facility] Comment on above: Performed By: #### C RP, HS TROP, CBC, MG, PT, PTT, CMP ####[address] ALP [Catalytic activity/Vol] 53 U/L Normal 34-104 [facility] Comment on above: Performed By: #### C RP, HS TROP, CBC, MG, PT, PTT, CMP ####[address] ALT [Catalytic activity/Vol] 17 U/L Normal 7-52 [facility] Comment on above: Performed By: #### C RP, HS TROP, CBC, MG, PT, PTT, CMP ####[address] Anion gap [Moles/Vol] 11.2 mmol/L Normal 6.0-15.0 [facility] Comment on above: Performed By: #### C RP, HS TROP, CBC, MG, PT, PTT, CMP ####[address] AST [Catalytic activity/Vol] 18 U/L Normal 13-39 [facility] Comment on above: Performed By: #### C RP, HS TROP, CBC, MG, PT, PTT, CMP ####[address] Bilirubin [Mass/Vol] 0.7 mg/dL Normal 0.3-1.0 [facility] Comment on above: Performed By: #### C RP, HS TROP, CBC, MG, PT, PTT, CMP ####[address] Calcium [Mass/Vol] 9.5 mg/dL Normal 8.6-10.3 [facility] Comment on above: Performed By: #### C RP, HS TROP, CBC, MG, PT, PTT, CMP ####[address] Chloride [Moles/Vol] 104 mmol/L Normal 98-107 [facility] Comment on above: Performed By: #### C RP, HS TROP, CBC, MG, PT, PTT, CMP ####[address] CO2 [Moles/Vol] 28.8 mmol/L Normal 21.0-31.0 [facility] Comment on above: Performed By: #### C RP, HS TROP, CBC, MG, PT, PTT, CMP ####[address] Creatinine [Mass/Vol] 1.86 mg/dL High 0.70-1.30 [facility] Comment on above: Performed By: #### C RP, HS TROP, CBC, MG, PT, PTT, CMP ####[address] Estimated GFR 36.131 mL/Min Normal [facility] Comment on above: Performed By: #### C RP, HS TROP, CBC, MG, PT, PTT, CMP ####[address] Globulin (S) [Mass/Vol] 2.7 g/dL Normal [facility] Comment on above: Performed By: #### C RP, HS TROP, CBC, MG, PT, PTT, CMP ####[address] Glucose [Mass/Vol] 135 mg/dL High 70-100 [facility] Comment on above: Result Comment: [place] Glucose Reference Range is dependent on time and content of last meal. Glucose of more than 200 mg/dL in a nonstressed, ambulatory subject supports the diagnosis of Diabetes Mellitus. ADA recommended reference range Performed By: #### C RP, HS TROP, CBC, MG, PT, PTT, CMP ####[address] Potassium [Moles/Vol] 4.0 mmol/L Normal 3.5-5.1 [facility] Comment on above: Performed By: #### C RP, HS TROP, CBC, MG, PT, PTT, CMP ####[address] Protein [Mass/Vol] 6.2 g/dL Low 6.4-8.9 [facility] Comment on above: Performed By: #### C RP, HS TROP, CBC, MG, PT, PTT, CMP ####[address] Sodium [Moles/Vol] 140 mmol/L Normal 136-145 [facility] Comment on above: Performed By: #### C RP, HS TROP, CBC, MG, PT, PTT, CMP ####[address] Urea nitrogen [Mass/Vol] 37 mg/dL High 7-25 [facility] Comment on above: Performed By: #### C RP, HS TROP, CBC, MG, PT, PTT, CMP ####[address] Creatinine [Mass/volume] in Serum or PlasmaOrdered By: Juli Thomas on 07-09-2024 Creatinine [Mass/Vol] Creatinine [Mass/v olume] in Serum or Plasma High 0.70-1.30 [facility] Dipstick and Microscopicon 1 09-08-2023 Appearance (U) Clear Normal Clear [facility] Comment on above: Order Comment: Name Collection Type:: Clean-Voided Midstream Performed By: #### A DDONUAPLUS ####[address] Bacteria,Urine None Seen Normal None Seen [facility] Comment on above: Order Comment: Name Collection Type:: Clean-Voided Midstream Performed By: #### A DDONUAPLUS ####[address] [place] [address] [facility] Bilirubin,Urine Negative Normal Negative [facility] Comment on above: Order Comment: Name Collection Type:: Clean-Voided Midstream Performed By: #### A DDONUAPLUS ####[address] [address] [facility] Color (U) Light-Yellow Normal Yellow [facility] Comment on above: Order Comment: Name Collection Type:: Clean-Voided Midstream Performed By: #### A DDONUAPLUS ####[address] [address] [facility] Glucose Ql (U) Normal Normal Normal [facility] Comment on above: Order Comment: Name Collection Type:: Clean-Voided Midstream Performed By: #### A DDONUAPLUS ####[address] [address] [facility] Hyaline Casts,Urine 0 [LPF] Normal 0-8 [facility] Comment on above: Order Comment: Name Collection Type:: Clean-Voided Midstream Result Comment: PERF ORMED BY:[address] [place], [place] [id number] MEDICAL DIRECTORRHONDA MCLEAN M.D. Performed By: #### A DDONUAPLUS ####[address] [address] [facility] Ketones Ql (U) Negative Normal Negative [facility] Comment on above: Order Comment: Name Collection Type:: Clean-Voided Midstream Performed By: #### A DDONUAPLUS ####[address] [address] [facility] Leukocyte esterase Test strip Ql (U) Negative Normal Negative [facility] Comment on above: Order Comment: Name Collection Type:: Clean-Voided Midstream Performed By: #### A DDONUAPLUS ####[address] [address] [facility] Nitrite,Urine Negative Normal Negative [facility] Comment on above: Order Comment: Name Collection Type:: Clean-Voided Midstream Performed By: #### A DDONUAPLUS ####[address] [address] [facility] Occult Blood,Urine Negative Normal Negative [facility] Comment on above: Order Comment: Name Collection Type:: Clean-Voided Midstream Result Comment: PERF ORMED BY:[place] [address] [address] [place], [place] [phone] MEDICAL DIRECTORRHONDA MCLEAN M.D. Performed By: #### A DDONUAPLUS ####[address] [address] [facility] pH (U) 6.5 [pH] Normal 5.0-9.0 [facility] Comment on above: Order Comment: Name Collection Type:: Clean-Voided Midstream Performed By: #### A DDONUAPLUS ####[address] [address] [facility] Protein,Urine Trace High Negative [facility] Comment on above: Order Comment: Name Collection Type:: Clean-Voided Midstream Performed By: #### A DDONUAPLUS ####[address] [address] [facility] RBC,Urine 5 [HPF] High 0-4 [facility] Comment on above: Order Comment: Name Collection Type:: Clean-Voided Midstream Performed By: #### A DDONUAPLUS ####[address] [address] [facility] Specificy [place],Urine 1.018 Normal 1.001-1.03 0 [facility] Comment on above: Order Comment: Name Collection Type:: Clean-Voided Midstream Performed By: #### A DDONUAPLUS ####[address] [address] [facility] Urobilinogen,Urine Normal Normal Normal [facility] Comment on above: Order Comment: Name Collection Type:: Clean-Voided Midstream Performed By: #### A DDONUAPLUS ####[address] [address] [facility] WBC,Urine 1 [HPF] Normal 0-4 [facility] Comment on above: Order Comment: Name Collection Type:: Clean-Voided Midstream Performed By: #### A DDONUAPLUS ####[place] [address] [place] [phone] [facility] ECG 12 lead ECGon 07-09-2024 ECG 12 lead ECG Normal [facility] Eosinophils Auto (Bld) [#/Vo l]Ordered By: Juli Thomas on 07-09-2024 Eosinophils (Bld) [#/Vol] Automated eosinophil count 0.0-0.45 [facility] Eosinophils/100 WBC Auto (Bl d)Ordered By: Juli Thomas on 07-09-2024 Eosinophils/100 WBC (Bld) Automated eosinophil % . [facility] Epithelial cells.squamous [# /area] in Urine sediment by Automated countOrdered By: Juli Thomas on 07-09-2024 Epithelial cells.squamous Auto (Urine sed) [#/Area] Epithelial cells.squamous [#/area] in Urine sediment by Automated count [facility] Erythrocyte Sedimentation Ra kimberlee 07-09-2024 ESR (Bld) [Velocity] 53 mm/h High 0 [facility] Comment on above: Result Comment: PERF ORMED BY:[address] [place], [place] [phone] MEDICAL DIRECTORMOFANG MCLEAN M.D. Performed By: #### E SR ####[place] [address] [place] [phone] [facility] Erythrocyte distribution wid th Auto (RBC) [Ratio]Ordered By: Juli Thomas on 07-09-2024 Erythrocyte distribution width (RBC) [Ratio] Erythrocyte distribution width [Ratio] by Automated count High 12.0-14.8 [facility] Erythrocyte sedimentation ra te by Photometric methodOrdered By: Juli Thomas on 07-09-2024 ESR Photometric method (Bld) [Velocity] Erythrocyte sedimentation rate by Photometric method High 0-19 [facility] Erythrocytes [#/area] in Uri ne sediment by Automated countOrdered By: Juli Thomas on 07-09-2024 RBC Auto (Urine sed) [#/Area] Erythrocytes [#/area] in Urine sediment by Automated count High 0-4 [facility] Globulin Calc (S) [Mass/Vol] Ordered By: Juli Thomas on 07-09-2024 Globulin (S) [Mass/Vol] Serum globulin measurement by calculation (mass/volume) [facility] Glucose Glucometer (BldC) [M ass/Vol]Ordered By: Juli Thomas on 07-09-2024 Glucose [Mass/Vol] Capillary blood gluc ose measurement by glucometer (mass/volume) [facility] Comment on above: Random Glucose Refer ence Range is dependent on time and content of last meal. Glucose of more than 200 mg/dL in a nonstressed, ambulatory subject supports the diagnosis of Diabetes Mellitus. Glucose Poct Glucometerson 1 09-08-2023 Glucose [Mass/Vol] 130 mg/dL Normal [facility] Comment on above: Result Comment: [place] Glucose Reference Range is dependent on time and content of last meal. Glucose of more than 200 mg/dL in a nonstressed, ambulatory subject supports the diagnosis of Diabetes Mellitus.PERFORMED BY:[facility] [place], [place] [phone] MEDICAL DIRECTORRHONDA MCLEAN M.D. Performed By: #### G LURAYO ####Point of Care testing, Glucose [Mass/volume] in Ser um or PlasmaOrdered By: Juli Thomas on 07-09-2024 Glucose [Mass/Vol] Glucose [Mass/volume ] in Serum or Plasma High 70-100 [facility] Comment on above: ADA recommended refe [...] [Mass/volume] in Urine by Test strip Normal [facility] Hematocrit Auto (Bld) [Volum e fraction]Ordered By: Juli Thomas on 07-09-2024 Hematocrit (Bld) [Volume fraction] Hematocrit [Volume Fraction] of Blood by Automated count 38.8-50.0 [facility] Hemoglobin Test strip Ql (U) Ordered By: Juli Thomas on 07-09-2024 Hemoglobin Ql (U) Hemoglobin [Presence ] in Urine by Test strip Negative [facility] Hemoglobin [Mass/volume] in BloodOrdered By: Juli Thomas on 07-09-2024 Hemoglobin (Bld) [Mass/Vol] Hemoglobin [Mass/volume] in Blood 13.0-17.0 [facility] Hyaline casts [#/area] in Ur ine sediment by Automated countOrdered By: Juli Thomas on 07-09-2024 Hyaline casts Auto (Urine sed) [#/Area] Hyaline casts [#/area] in Urine sediment by Automated count 0-8 [facility] INR in Platelet poor plasma by Coagulation assayOrdered By: Juli Thomas on 07-09-2024 INR Coag (PPP) [Relative time] INR in Platelet poor plasma by Coagulation assay [facility] Comment on above: INR Therapeutic Rang [...] i n Urine by Test strip Negative [facility] Leukocyte esterase [Presence ] in Urine by Test stripOrdered By: Juli Thomas on 07-09-2024 Leukocyte esterase Test strip Ql (U) Leukocyte esterase [Presence] in Urine by Test strip Negative [facility] Leukocytes [#/area] in Urine sediment by Automated countOrdered By: Juli Thomas on 07-09-2024 WBC Auto (Urine sed) [#/Area] Leukocytes [#/area] in Urine sediment by Automated count 0-4 [facility] Leukocytes [#/volume] correc blessing for nucleated erythrocytes in Blood by Automated counOrdered By: Juli Thomas on 07-09-2024 WBC corrected for nucl RBC Auto (Bld) [#/Vol] Leukocytes [#/volume] corrected for nucleated erythrocytes in Blood by Automated coun 4.1-10.5 [facility] Lymphocytes Auto (Bld) [#/Vo l]Ordered By: Juli Thomas on 07-09-2024 Lymphocytes (Bld) [#/Vol] Lymphocytes [#/volume] in Blood by Automated count Low 1.00-4.8 [facility] Lymphocytes/100 WBC Auto (Bl d)Ordered By: Juli Thomas on 07-09-2024 Lymphocytes/100 WBC (Bld) Lymphocytes/100 leukocytes in Blood by Automated count . [facility] MCH Auto (RBC) [Entitic mass ]Ordered By: Juli Thomas on 07-09-2024 MCH (RBC) [Entitic mass] MCH [Entitic mass] by Automated count 27.5-35.2 [facility] MCHC Auto (RBC) [Mass/Vol]Or dered By: Juli Thomas on 07-09-2024 MCHC (RBC) [Mass/Vol] MCHC [Mass/volume] by Automated count 32.5-35.6 [facility] MCV Auto (RBC) [Entitic vol] Ordered By: Juli Thomas on 07-09-2024 MCV (RBC) [Entitic vol] MCV [Entitic volume] by Automated count 83.5-101 [facility] Magnesiumon 07-09-2024 Magnesium [Mass/Vol] 1.9 mg/dL Normal 1.9-2.7 [facility] Comment on above: Result Comment: PERF ORMED BY:[facility] [place], [place] [phone] MEDICAL DIRECTORRHONDA MCLEAN M.D. Performed By: #### C RP, HS TROP, CBC, MG, PT, PTT, CMP ####[facility] [place] [address] [facility] Magnesium [Mass/volume] in [place] or PlasmaOrdered By: Juli Thomas on 07-09-2024 Magnesium [Mass/Vol] Magnesium [Mass/vol ume] in Serum or Plasma 1.9-2.7 [facility] Monocyte distribution width [Entitic volume] in Blood by AutomatedOrdered By: Juli Thomas on 07-09-2024 Monocyte distribution width Auto (Bld) [Entitic vol] Monocyte distribution width [Entitic volume] in Blood by Automated 0.00-20.00 [facility] Monocytes Auto (Bld) [#/Vol] Ordered By: Juli Thomas on 07-09-2024 Monocytes (Bld) [#/Vol] Automated blood monocyte count High 0.0-0.8 [facility] Monocytes/100 WBC Auto (Bld) Ordered By: Juli Thomas on 07-09-2024 Monocytes/100 WBC (Bld) Automated monocyte % . [facility] Neutrophils Auto (Bld) [#/Vo l]Ordered By: Juli Thomas on 07-09-2024 Neutrophils (Bld) [#/Vol] Neutrophils [#/volume] in Blood by Automated count High 1.8-7.7 [facility] Neutrophils/100 WBC Auto (Bl d)Ordered By: Juli Thomas on 07-09-2024 Neutrophils/100 WBC (Bld) Automated neutrophil % . [facility] Nitrite Test strip Ql (U)Ord ered By: Juli Thomas on 07-09-2024 Nitrite Ql (U) Nitrite [Presence] i n Urine by Test strip Negative [facility] No Panel InformationOrdered By: Juli Thomas on 07-09-2024 Estimated GFR (CKD-EPI) 36.131 mL/Min [facility] Creatinine Clearance (Chem N/A [facility] Nucleated erythrocytes [Pres ence] in Blood by Automated countOrdered By: Juli Thomas on 07-09-2024 Nucleated RBC Auto Ql (Bld) Nucleated erythrocytes [Presence] in Blood by Automated count 0-0.5 [facility] Partial Thromboplastin Timeo n 07-09-2024 aPTT Coag (Bld) [Time] 30.8 s Normal 25.1-36.5 Th [facility] Comment on above: Result Comment: A he matocrit value greater than 55% may lead to inaccurate results in coagulation testing. Patients having hematocrit values >55% require a special collection tube for coagulation studies. Please contact the laboratory at [phone] for redraw instructions.PERFORMED BY:[facility] [place] [phone] MEDICAL DIRECTORRHONDA MCLEAN M.D. Performed By: #### C RP, HS TROP, CBC, MG, PT, PTT, CMP ####[facility] [place] [address] [facility] Platelet mean volume Auto (B ld) [Entitic vol]Ordered By: Juli Thomas on 07-09-2024 Platelet mean volume (Bld) [Entitic vol] Platelet mean volume [Entitic volume] in Blood by Automated count 6.6-10.1 [facility] Platelets Auto (Bld) [#/Vol] Ordered By: Juli Thomas on 07-09-2024 Platelets (Bld) [#/Vol] Platelets [#/volume] in Blood by Automated count 150-450 [facility] Potassium [Moles/volume] in Serum or PlasmaOrdered By: Juli Thomas on 07-09-2024 Potassium [Moles/Vol] Potassium [Moles/v olume] in Serum or Plasma 3.5-5.1 [facility] Protein Test strip (U) [Mass /Vol]Ordered By: Juli Thomas on 07-09-2024 Protein (U) [Mass/Vol] Protein [Mass/vol ume] in Urine by Test strip High Negative [facility] Protein [Mass/volume] in Ser um or PlasmaOrdered By: Juli Thomas on 07-09-2024 Protein [Mass/Vol] Protein [Mass/volume ] in Serum or Plasma Low 6.4-8.9 [facility] Prothrombin Time INRon 07-09 INR Coag (PPP) [Relative time] 1.6 {INR} Normal [facility] Comment on above: Result Comment: [...] HS TROP, CBC, MG, PT, PTT, CMP ####[facility] [address] [place] [id number] [facility] PT Coag (PPP) [Time] 17.8 s High 9.0-12.9 [facility] Comment on above: Result Comment: A he matocrit value greater than 55% may lead to inaccurate results in coagulation testing. Patients having hematocrit values >55% require a special collection tube for coagulation studies. Please contact the laboratory at [phone] for redraw instructions. Performed By: #### C RP, HS TROP, CBC, MG, PT, PTT, CMP ####[facility] [place] [phone] [facility] Prothrombin time (PT)Ordered By: Juli Thomas on 07-09-2024 PT Coag (PPP) [Time] Prothrombin time (PT) High 9.0- 12.9 [facility] Comment on above: A hematocrit value g reater than 55% may lead to inaccurate results in coagulation testing. Patients having hematocrit values >55% require a special collection tube for coagulation studies. Please contact the laboratory at [phone] for redraw instructions. RBC Auto (Bld) [#/Vol]Ordere d By: Juli Thomas on 07-09-2024 RBC (Bld) [#/Vol] Erythrocytes [#/volu me] in Blood by Automated count 3.90-5.60 [facility] Serum or plasma albumin/glob ulin mass ratioOrdered By: Juli Thomas on 07-09-2024 Albumin/Globulin [Mass ratio] Serum or plasma albumin/globulin mass ratio [facility] Serum or plasma anion gap de terminationOrdered By: Juli Thomas on 07-09-2024 Anion gap [Moles/Vol] Serum or plasma an ion gap determination 6.0-15.0 [facility] Sodium [Moles/volume] in Ser um or PlasmaOrdered By: Juli Thomas on 07-09-2024 Sodium [Moles/Vol] Sodium [Moles/volume ] in Serum or Plasma 136-145 [facility] Specific gravity Test strip (U) [Rel density]Ordered By: Juli Thomas on 07-09-2024 Specific gravity (U) [Rel density] Specific gravity of Urine by Test strip 1.001-1.03 0 [facility] Troponin I High Sensitivityo n 07-09-2024 Troponin I High Sensitivity 10.7 pg/mL Normal 0.0-20.0 [facility] Comment on above: Result Comment: PERF ORMED BY:[facility] [place], [place] [phone] MEDICAL DIRECTORRHONDA MCLEAN M.D. Performed By: #### C RP, HS TROP, CBC, MG, PT, PTT, CMP ####[facility] [place] [address] [facility] Troponin I.cardiac [Mass/vol ume] in Serum or Plasma by Detection limit <= 0.01 ng/Ordered By: Juli Thomas on 07-09-2024 Troponin I.cardiac DL <= 0.01 ng/mL [Mass/Vol] Troponin I.cardiac [Mass/volume] in Serum or Plasma by Detection limit <= 0.01 ng/ 0.0-20.0 [facility] Urea nitrogen [Mass/volume] in Serum or PlasmaOrdered By: Juli Thomas on 07-09-2024 Urea nitrogen [Mass/Vol] Urea nitrogen [Mass/volume] in Serum or Plasma High 7-25 [facility] Urobilinogen Test strip (U) [Mass/Vol]Ordered By: Juli Thomas on 07-09-2024 Urobilinogen (U) [Mass/Vol] Urobilinogen [Mass/volume] in Urine by Test strip Normal [facility] WBC Auto (Bld) [#/Vol]Ordere d By: Juli Thomas on 07-09-2024 WBC (Bld) [#/Vol] Leukocytes [#/volume ] in Blood by Automated count 4.1-10.5 [facility] X-ray reportOrdered By: Latasha Moe on 07-09-2024 Study report [facility] [address] XRay Report Signed Patient: Taurus Garcia MR#: [id number] : 1945 Acct:[id number] Age/Sex: 78 / M ADM Date: 4 Loc: ER Room: Type: [facility] ER Attending Dr: Copies to: Juli [...] Aide Moe M.D.07/09/2024 4:34 PM Dictation Location: [place] [address] Transcribed By: [facility] 07/09/24 1634 Dictated By: Aide Moe MD 07/09/24 1632 Signed By: 07/09/24 1634 [facility] Work Phone: XR chest 1V portableon 07-09 XR chest 1V portable Normal [facility] aPTT in Platelet poor plasma by Coagulation assayOrdered By: Juli Thomas on 07-09-2024 aPTT Coag (PPP) [Time] Activated partial thromboplastin time (aPTT) in platelet poor plasma by coagulation a 25.1-36.5 [facility] Comment on above: A hematocrit value g reater than 55% may lead to inaccurate results in coagulation testing. Patients having hematocrit values >55% require a special collection tube for coagulation studies. Please contact the laboratory at [phone] for redraw instructions. pH Test strip (U)Ordered By: Juli Thomas on 07-09-2024 pH (U) pH of Urine by Test strip 5.0-9.0 [facility] Basic Metabolic Panelon 06-21 Anion gap [Moles/Vol] 12.0 mmol/L Normal 6.0-15.0 [facility] Comment on above: Performed By: #### B MP ####[place] [id number] [facility] Calcium [Mass/Vol] 8.6 mg/dL Normal 8.6-10.3 [facility] Comment on above: Performed By: #### B MP ####[place] [id number] [facility] Chloride [Moles/Vol] 106 mmol/L Normal 98-107 [facility] Comment on above: Performed By: #### B MP ####[place] [id number] [facility] CO2 [Moles/Vol] 28.2 mmol/L Normal 21.0-31.0 [facility] Comment on above: Performed By: #### B MP ####[place] [id number] [facility] Creatinine [Mass/Vol] 1.07 mg/dL Normal 0.70-1.30 [facility] Comment on above: Performed By: #### B MP ####[place] [id number] [facility] Creatinine Clr Calc Pharmacy 75.58 Normal [facility] Comment on above: Result Comment: PERF ORMED BY:[address] [place], [place] [phone] MEDICAL DIRECTORGINA CARDONA M.D. Performed By: #### B MP ####[address] [address] [facility] GFR/1.73 sq M.predicted MDRD (S/P/Bld) [Vol rate/Area] mL/min/{1.73_m2} Normal [facility] Comment on above: Performed By: #### B MP ####[address] Glucose [Mass/Vol] 96 mg/dL Normal 70-100 [facility] Comment on above: Result Comment: [place] Glucose Reference Range is dependent on time and content of last meal. Glucose of more than 200 mg/dL in a nonstressed, ambulatory subject supports the diagnosis of Diabetes Mellitus. ADA recommended reference range Performed By: #### B MP ####[address] Potassium [Moles/Vol] 3.2 mmol/L Low 3.5-5.1 [facility] Comment on above: Performed By: #### B MP ####[address] Sodium [Moles/Vol] 143 mmol/L Normal 136-145 [facility] Comment on above: Performed By: #### B MP ####[place] [id number] [facility] Urea nitrogen [Mass/Vol] 21 mg/dL Normal 7-25 [facility] Comment on above: Performed By: #### B MP ####[place] [id number] [facility] Calcium [Mass/volume] in Ser um or PlasmaOrdered By: Silvestre Grover on 07-03-2024 Calcium [Mass/Vol] Calcium [Mass/volume ] in Serum or Plasma 8.6-10.3 [facility] Carbon dioxide, total [Moles /volume] in Serum or PlasmaOrdered By: Silvestre Grover on 07-03-2024 CO2 [Moles/Vol] Carbon dioxide, tota l [Moles/volume] in Serum or Plasma 21.0-31.0 [facility] Chloride [Moles/volume] in S [place] or PlasmaOrdered By: Silvestre Grover on 07-03-2024 Chloride [Moles/Vol] Chloride [Moles/vol ume] in Serum or Plasma 98-107 [facility] Creatinine [Mass/volume] in Serum or PlasmaOrdered By: Silvestre Grover on 07-03-2024 Creatinine [Mass/Vol] Creatinine [Mass/v olume] in Serum or Plasma 0.70-1.30 [facility] Glucose [Mass/volume] in Ser um or PlasmaOrdered By: Silvestre Grover on 07-03-2024 Glucose [Mass/Vol] Glucose [Mass/volume ] in Serum or Plasma 70-100 [facility] Comment on above: ADA recommended refe rence rangeRandom Glucose Reference Range is dependent on time and content of last meal. Glucose of more than 200 mg/dL in a nonstressed, ambulatory subject supports the diagnosis of Diabetes Mellitus. No Panel InformationOrdered By: Silvestre Grover on 07-03-2024 Estimated GFR (CKD-EPI) > 60.0 mL/Min [facility] Creatinine Clearance (Chem 75.58 [facility] > 60.0 mL/Min [facility] 75.58 [facility] Potassium [Moles/volume] in Serum or PlasmaOrdered By: Silvestre Grover on 07-03-2024 Potassium [Moles/Vol] Potassium [Moles/v olume] in Serum or Plasma Low 3.5-5.1 [facility] Serum or plasma anion gap de terminationOrdered By: Silvestre Grover on 07-03-2024 Anion gap [Moles/Vol] Serum or plasma an ion gap determination 6.0-15.0 [facility] Sodium [Moles/volume] in Ser um or PlasmaOrdered By: Silvestre Grover on 07-03-2024 Sodium [Moles/Vol] Sodium [Moles/volume ] in Serum or Plasma 136-145 [facility] Urea nitrogen [Mass/volume] in Serum or PlasmaOrdered By: Silvestre Grover on 07-03-2024 Urea nitrogen [Mass/Vol] Urea nitrogen [Mass/volume] in Serum or Plasma 7-25 [facility] Basic Metabolic Panelon 06-21 Anion gap [Moles/Vol] 12.2 mmol/L Normal 6.0-15.0 e [facility] Comment on above: Performed By: #### B MP, DIFF CBC ####[facility] [id number] [place] [id number] [facility] Calcium [Mass/Vol] 8.4 mg/dL Low 8.6-10.3 [facility] Comment on above: Performed By: #### B MP, DIFF CBC ####[address] [address] [place] Chloride [Moles/Vol] 106 mmol/L Normal 98-107 [facility] Comment on above: Performed By: #### B MP, DIFF CBC ####[address] [address] [facility] CO2 [Moles/Vol] 29.1 mmol/L Normal 21.0-31.0 [facility] Comment on above: Performed By: #### B MP, DIFF CBC ####[address] [address] [facility] Creatinine [Mass/Vol] 1.20 mg/dL Normal 0.70-1.30 [facility] Comment on above: Performed By: #### B MP, DIFF CBC ####[address] [address] [place] Creatinine Clr Calc Pharmacy 67.36 Normal [facility] Comment on above: Result Comment: PERF ORMED BY:[address] [place], [place] [phone] MEDICAL DIRECTORGINA CARDONA M.D. Performed By: #### B MP, DIFF CBC ####[address] [address] [place] GFR/1.73 sq M.predicted MDRD (S/P/Bld) [Vol rate/Area] mL/min/{1.73_m2} Normal [facility] Comment on above: Performed By: #### B MP, DIFF CBC ####[address] [address] [facility] Glucose [Mass/Vol] 91 mg/dL Normal 70-100 [facility] Comment on above: Result Comment: [place] Glucose Reference Range is dependent on time and content of last meal. Glucose of more than 200 mg/dL in a nonstressed, ambulatory subject supports the diagnosis of Diabetes Mellitus. ADA recommended reference range Performed By: #### B MP, DIFF CBC ####[address] Potassium [Moles/Vol] 3.3 mmol/L Low 3.5-5.1 [facility] Comment on above: Performed By: #### B MP, DIFF CBC ####[address] Sodium [Moles/Vol] 144 mmol/L Normal 136-145 [facility] Comment on above: Performed By: #### B MP, DIFF CBC ####[address] Urea nitrogen [Mass/Vol] 22 mg/dL Normal 7-25 [facility] Comment on above: Performed By: #### B MP, DIFF CBC ####[address] Basophils Auto (Bld) [#/Vol] Ordered By: Silvestre Grover on 07-02-2024 Basophils (Bld) [#/Vol] Automated basophil count [facility] Basophils/100 WBC Auto (Bld) Ordered By: Silvestre Grover on 07-02-2024 Basophils/100 WBC (Bld) Automated basophil % [facility] Diff and CBCon 07-02-2024 Erythrocyte distribution width (RBC) [Ratio] 14.8 % Normal 12.0-14.8 [facility] Comment on above: Performed By: #### B MP, DIFF CBC ####[address] Hematocrit (Bld) [Volume fraction] 36.3 % Low 38.8-50.0 [facility] Comment on above: Performed By: #### B MP, DIFF CBC ####[address] Hemoglobin (Bld) [Mass/Vol] 12.4 g/dL Low 13.0-17.0 [facility] Comment on above: Performed By: #### B MP, DIFF CBC ####[address] Lymphocytes/100 WBC (Bld) 15 % Low 18-42 [facility] Comment on above: Performed By: #### B MP, DIFF CBC ####[place] [id number] [facility] MCH (RBC) [Entitic mass] 31.4 pg Normal 27.5-35.2 [facility] Comment on above: Performed By: #### B MP, DIFF CBC ####[place] [id number] [facility] MCV (RBC) [Entitic vol] 91.8 fL Normal 83.5-101 [facility] Comment on above: Performed By: #### B MP, DIFF CBC ####[address] Mean Corpuscular HGB Conc 34.2 g/dL Normal 32.5-35.6 [facility] Comment on above: Performed By: #### B MP, DIFF CBC ####[address] Monocytes/100 WBC (Bld) 8 % Normal 2-11 [facility] Comment on above: Performed By: #### B MP, DIFF CBC ####[place] [id number] [facility] Myelocytes 1 % High 0-0 [facility] Comment on above: Performed By: #### B MP, DIFF CBC ####[place] [id number] [facility] Platelet Estimate Normal Normal Normal [facility] Comment on above: Performed By: #### B MP, DIFF CBC ####[place] [id number] [facility] Platelet mean volume (Bld) [Entitic vol] 8.8 fL Normal 6.6-10.1 [facility] Comment on above: Performed By: #### B MP, DIFF CBC ####[place] [id number] [facility] Platelet Morphology Normal Normal Normal [facility] Comment on above: Result Comment: PERF ORMED BY:[address] [place], [place] [phone] MEDICAL DIRECTORGINA CARDONA M.D. Performed By: #### B MP, DIFF CBC ####[address] Platelets (Bld) [#/Vol] 195 10*3/uL Normal 150-450 [facility] Comment on above: Performed By: #### B MP, DIFF CBC ####[address] RBC (Bld) [#/Vol] 3.95 10*6/uL Normal 3.90-5.60 [facility] Comment on above: Performed By: #### B MP, DIFF CBC ####[address] RBC morphology finding Nom (Bld) Normal Normal Normal [facility] Comment on above: Performed By: #### B MP, DIFF CBC ####[address] Segmented neutrophils/100 WBC (Bld) 76 % High 50-70 [facility] Comment on above: Performed By: #### B MP, DIFF CBC ####[address] WBC (Bld) [#/Vol] 9.1 10*3/uL Normal 4.1-10.5 [facility] Comment on above: Performed By: #### B MP, DIFF CBC ####[address] Eosinophils Auto (Bld) [#/Vo l]Ordered By: Silvestre Grover on 07-02-2024 Eosinophils (Bld) [#/Vol] Automated eosinophil count [facility] Eosinophils/100 WBC Auto (Bl d)Ordered By: Silvestre Grover on 07-02-2024 Eosinophils/100 WBC (Bld) Automated eosinophil % [facility] Erythrocyte distribution wid th Auto (RBC) [Ratio]Ordered By: Silvestre Grover on 07-02-2024 Erythrocyte distribution width (RBC) [Ratio] Erythrocyte distribution width [Ratio] by Automated count 12.0-14.8 [facility] Erythrocyte morphology findi ng [Identifier] in BloodOrdered By: Silvestre Grover on 07-02-2024 RBC morphology finding Nom (Bld) RBC morphology Normal [facility] Hematocrit Auto (Bld) [Volum e fraction]Ordered By: Silvestre Grover on 07-02-2024 Hematocrit (Bld) [Volume fraction] Hematocrit [Volume Fraction] of Blood by Automated count Low 38.8-50.0 [facility] Hemoglobin [Mass/volume] in BloodOrdered By: Silvestre Grover on 07-02-2024 Hemoglobin (Bld) [Mass/Vol] Hemoglobin [Mass/volume] in Blood Low 13.0-17.0 [facility] Leukocytes [#/volume] correc blessing for nucleated erythrocytes in Blood by Automated counOrdered By: Silvestre Grover on 07-02-2024 WBC corrected for nucl RBC Auto (Bld) [#/Vol] Leukocytes [#/volume] corrected for nucleated erythrocytes in Blood by Automated coun 4.1-10.5 [facility] Lymphocytes Auto (Bld) [#/Vo l]Ordered By: Silvestre Grover on 07-02-2024 Lymphocytes (Bld) [#/Vol] Lymphocytes [#/volume] in Blood by Automated count [facility] Lymphocytes/100 WBC Auto (Bl d)Ordered By: Silvestre Grover on 07-02-2024 Lymphocytes/100 WBC (Bld) Lymphocytes/100 leukocytes in Blood by Automated count [facility] Lymphocytes/100 WBC Manual c nt (Bld)Ordered By: Silvestre Grover on 07-02-2024 Lymphocytes/100 WBC (Bld) Lymphocytes/100 leukocytes in Blood by Manual count Low 18-42 [facility] MCH Auto (RBC) [Entitic mass ]Ordered By: Silvestre Grover on 07-02-2024 MCH (RBC) [Entitic mass] MCH [Entitic mass] by Automated count 27.5-35.2 [facility] MCHC Auto (RBC) [Mass/Vol]Or dered By: Silvestre Grover on 07-02-2024 MCHC (RBC) [Mass/Vol] MCHC [Mass/volume] by Automated count 32.5-35.6 [facility] MCV Auto (RBC) [Entitic vol] Ordered By: Silvestre Grover on 07-02-2024 MCV (RBC) [Entitic vol] MCV [Entitic volume] by Automated count 83.5-101 [facility] Monocytes Auto (Bld) [#/Vol] Ordered By: Silvestre Grover on 07-02-2024 Monocytes (Bld) [#/Vol] Automated blood monocyte count [facility] Monocytes/100 WBC Auto (Bld) Ordered By: Silvestre Grover on 07-02-2024 Monocytes/100 WBC (Bld) Automated monocyte % [facility] Monocytes/100 WBC Manual cnt (Bld)Ordered By: Silvestre Grover on 07-02-2024 Monocytes/100 WBC (Bld) Monocytes/100 leukocytes in Blood by Manual count 2-11 [facility] Myelocytes/100 WBC Manual cn t (Bld)Ordered By: Silvestre Grover on 07-02-2024 Myelocytes/100 WBC (Bld) Myelocytes/100 leukocytes in Blood by Manual count High 0-0 [facility] Neutrophils Auto (Bld) [#/Vo l]Ordered By: Silvestre Grover on 07-02-2024 Neutrophils (Bld) [#/Vol] Neutrophils [#/volume] in Blood by Automated count [facility] Neutrophils/100 WBC Auto (Bl d)Ordered By: Silvestre Grover on 07-02-2024 Neutrophils/100 WBC (Bld) Automated neutrophil % [facility] Nucleated erythrocytes [Pres ence] in Blood by Automated countOrdered By: Silvestre Grover on 07-02-2024 Nucleated RBC Auto Ql (Bld) Nucleated erythrocytes [Presence] in Blood by Automated count [facility] Platelet adequacy [Presence] in Blood by Light microscopyOrdered By: Silvestre Grover on 07-02-2024 Platelets LM Ql (Bld) Platelet adequacy [Presence] in Blood by Light microscopy Normal [facility] Platelet mean volume Auto (B ld) [Entitic vol]Ordered By: Silvestre Grover on 07-02-2024 Platelet mean volume (Bld) [Entitic vol] Platelet mean volume [Entitic volume] in Blood by Automated count 6.6-10.1 [facility] Platelet morphology finding [Identifier] in BloodOrdered By: Silvestre Grover on 07-02-2024 Platelet morphology finding Nom (Bld) Platelet morphology finding [Identifier] in Blood Normal [facility] Platelets Auto (Bld) [#/Vol] Ordered By: Silvestre Grover on 07-02-2024 Platelets (Bld) [#/Vol] Platelets [#/volume] in Blood by Automated count 150-450 [facility] RBC Auto (Bld) [#/Vol]Ordere d By: Silvestre Grover on 07-02-2024 RBC (Bld) [#/Vol] Erythrocytes [#/volu me] in Blood by Automated count 3.90-5.60 [facility] Segmented neutrophils/100 WB C Manual cnt (Bld)Ordered By: Silvestre Grover on 07-02-2024 Segmented neutrophils/100 WBC (Bld) Manual blood segmented neutrophils/100 leukocytes High 50-70 [facility] WBC Auto (Bld) [#/Vol]Ordere d By: Silvestre Grover on 07-02-2024 WBC (Bld) [#/Vol] Leukocytes [#/volume ] in Blood by Automated count 4.1-10.5 [facility] Basic Metabolic Panelon Anion gap [Moles/Vol] 10.3 mmol/L Normal 6.0-15.0 [facility] Comment on above: Performed By: #### B MP ####[address] Calcium [Mass/Vol] 8.6 mg/dL Normal 8.6-10.3 [facility] Comment on above: Performed By: #### B MP ####[place] [id number] [facility] Chloride [Moles/Vol] 102 mmol/L Normal 98-107 [facility] Comment on above: Performed By: #### B MP ####[address] [address] [facility] CO2 [Moles/Vol] 32.9 mmol/L High 21.0-31.0 [facility] Comment on above: Performed By: #### B MP ####[place] [id number] [facility] Creatinine [Mass/Vol] 1.26 mg/dL Normal 0.70-1.30 [facility] Comment on above: Performed By: #### B MP ####[address] [address] [facility] Creatinine Clr Calc Pharmacy 64.44 Normal [facility] Comment on above: Result Comment: PERF ORMED BY:[address] [place], [place] [phone] MEDICAL HUY CARDONA M.D. Performed By: #### B MP ####[place] [id number] [facility] GFR/1.73 sq M.predicted MDRD (S/P/Bld) [Vol rate/Area] 57.657 mL/min/{1.73_m2} Normal [facility] Comment on above: Performed By: #### B MP ####[place] [id number] [facility] Glucose [Mass/Vol] 97 mg/dL Normal 70-100 [facility] Comment on above: Result Comment: [facility] Glucose Reference Range is dependent on time and content of last meal. Glucose of more than 200 mg/dL in a nonstressed, ambulatory subject supports the diagnosis of Diabetes Mellitus. ADA recommended reference range Performed By: #### B MP ####[place] [id number] [facility] Potassium [Moles/Vol] 3.2 mmol/L Low 3.5-5.1 [facility] Comment on above: Performed By: #### B MP ####[place] [id number] [facility] Sodium [Moles/Vol] 142 mmol/L Normal 136-145 [facility] Comment on above: Performed By: #### B MP ####[place] [id number] [facility] Urea nitrogen [Mass/Vol] 30 mg/dL High 7-25 [facility] Comment on above: Performed By: #### B MP ####[place] [id number] [facility] Basic Metabolic Panelon 11-0 Anion gap [Moles/Vol] Not performed Normal 6.0-15.0 [facility] Comment on above: Performed By: #### B MP ####[address] [address] [facility] Calcium [Mass/Vol] 8.9 mg/dL Normal 8.6-10.3 [facility] Comment on above: Performed By: #### B MP ####[place] [id number] [facility] Chloride [Moles/Vol] 103 mmol/L Normal 98-107 [facility] Comment on above: Performed By: #### B MP ####[place] [id number] [facility] CO2 [Moles/Vol] 28.9 mmol/L Normal 21.0-31.0 [facility] Comment on above: Performed By: #### B MP ####[place] [id number] [facility] Creatinine [Mass/Vol] 1.27 mg/dL Normal 0.70-1.30 [facility] Comment on above: Performed By: #### B MP ####[place] [id number] [place] Creatinine Clr Calc Pharmacy 63.75 Normal [facility] Comment on above: Result Comment: PERF ORMED BY:[address] [place], [place] [phone] MEDICAL DIRECTORGINA CARDONA M.D. Performed By: #### B MP ####[place] [id number] [facility] GFR/1.73 sq M.predicted MDRD (S/P/Bld) [Vol rate/Area] 57.112 mL/min/{1.73_m2} Normal [facility] Comment on above: Performed By: #### B MP ####[place] [id number] [facility] Glucose [Mass/Vol] 122 mg/dL High 70-100 [facility] Comment on above: Result Comment: [place] Glucose Reference Range is dependent on time and content of last meal. Glucose of more than 200 mg/dL in a nonstressed, ambulatory subject supports the diagnosis of Diabetes Mellitus. ADA recommended reference range Performed By: #### B MP ####[place] [id number] [facility] Potassium Normal 3.5-5.1 [facility] Comment on above: Result Comment: Spec imen hemolyzed, redraw requested Performed By: #### B MP ####[address] Sodium [Moles/Vol] 140 mmol/L Normal 136-145 [facility] Comment on above: Performed By: #### B MP ####[address] Urea nitrogen [Mass/Vol] 38 mg/dL High 7-25 [facility] Comment on above: Performed By: #### B MP ####[address] Redraw Potassiumon 4 Potassium [Moles/Vol] 3.5 mmol/L Normal 3.5-5.1 [facility] Comment on above: Result Comment: PERF ORMED BY:[address] [place], [place] [phone] MEDICAL DIRECTORGINA CARDONA M.D. Performed By: #### R ARJUN Wong ####[place] [id number] [facility] Alanine aminotransferase [En zymatic activity/volume] in Serum or PlasmaOrdered By: Antonia Grier on 06-23-2024 ALT [Catalytic activity/Vol] Alanine aminotransferase [Enzymatic activity/volume] in Serum or Plasma [facility] Albumin [Mass/volume] in Ser um or Plasma by Bromocresol green (BCG) dye binding methoOrdered By: Antonia Grier on 06-23-2024 Albumin BCG dye [Mass/Vol] Albumin [Mass/volume] in Serum or Plasma by Bromocresol green (BCG) dye binding metho 3.5-5.7 [facility] Alkaline phosphatase [Enzyma tic activity/volume] in Serum or PlasmaOrdered By: Antonia Grier on 06-23-2024 ALP [Catalytic activity/Vol] Alkaline phosphatase [Enzymatic activity/volume] in Serum or Plasma 34-104 [facility] Aspartate aminotransferase [ Enzymatic activity/volume] in Serum or PlasmaOrdered By: Antonia Grier on 06-23-2024 AST [Catalytic activity/Vol] Aspartate aminotransferase [Enzymatic activity/volume] in Serum or Plasma 13-39 [facility] Bilirubin.total [Mass/volume ] in Serum or PlasmaOrdered By: Antonia Grier on 06-23-2024 Bilirubin [Mass/Vol] Bilirubin.total [Mass/volume] in Serum or Plasma 0.3-1.0 [facility] Complete Blood Count Auto Di ffon 06-23-2024 Basophils (Bld) [#/Vol] 0.0 10*3/uL Normal 0.0-0.2 [facility] Comment on above: Result Comment: PERF ORMED BY:[address] [place], [place] [phone] MEDICAL DIRECTORGINA CARDONA M.D. Performed By: #### C MP, PAB, CBC ####[address] Basophils/100 WBC (Bld) 0.2 % Normal . [facility] Comment on above: Performed By: #### C MP, PAB, CBC ####[place] [id number] [facility] Eosinophils (Bld) [#/Vol] 0.0 10*3/uL Normal 0.0-0.45 [facility] Comment on above: Performed By: #### C MP, PAB, CBC ####[place] [id number] [facility] Eosinophils/100 WBC (Bld) 0.1 % Normal . [facility] Comment on above: Performed By: #### C MP, PAB, CBC ####[address] Erythrocyte distribution width (RBC) [Ratio] 14.7 % Normal 12.0-14.8 [facility] Comment on above: Performed By: #### C MP, PAB, CBC ####[address] Hematocrit (Bld) [Volume fraction] 40.9 % Normal 38.8-50.0 [facility] Comment on above: Performed By: #### C MP, PAB, CBC ####[address] Hemoglobin (Bld) [Mass/Vol] 13.6 g/dL Normal 13.0-17.0 [facility] Comment on above: Performed By: #### C MP, PAB, CBC ####[address] Lymphocytes (Bld) [#/Vol] 1.2 10*3/uL Normal 1.00-4.8 [facility] Comment on above: Performed By: #### C MP, PAB, CBC ####[address] Lymphocytes/100 WBC (Bld) 10.7 % Normal . [facility] Comment on above: Performed By: #### C MP, PAB, CBC ####[address] MCH (RBC) [Entitic mass] 30.8 pg Normal 27.5-35.2 [facility] Comment on above: Performed By: #### C MP, PAB, CBC ####[address] MCV (RBC) [Entitic vol] 92.4 fL Normal 83.5-101 [facility] Comment on above: Performed By: #### C MP, PAB, CBC ####[address] Mean Corpuscular HGB Conc 33.3 g/dL Normal 32.5-35.6 [facility] Comment on above: Performed By: #### C MP, PAB, CBC ####[address] Monocytes (Bld) [#/Vol] 1.0 10*3/uL High 0.0-0.8 [facility] Comment on above: Performed By: #### C MP, PAB, CBC ####[address] Monocytes/100 WBC (Bld) 8.7 % Normal . [facility] Comment on above: Performed By: #### C MP, PAB, CBC ####[address] Neutrophils (Bld) [#/Vol] 9.1 10*3/uL High 1.8-7.7 [facility] Comment on above: Performed By: #### C MP, PAB, CBC ####[address] Neutrophils/100 WBC (Bld) 80.3 % Normal . [facility] Comment on above: Performed By: #### C MP, PAB, CBC ####[address] NRBC% 0.1 /100{WBC} Normal 0-0.5 [facility] Comment on above: Performed By: #### C MP, PAB, CBC ####[address] Platelet mean volume (Bld) [Entitic vol] 8.6 fL Normal 6.6-10.1 [facility] Comment on above: Performed By: #### C MP, PAB, CBC ####[address] Platelets (Bld) [#/Vol] 195 10*3/uL Normal 150-450 [facility] Comment on above: Performed By: #### C MP, PAB, CBC ####[address] RBC (Bld) [#/Vol] 4.43 10*6/uL Normal 3.90-5.60 [facility] Comment on above: Performed By: #### C MP, PAB, CBC ####[place] [id number] [facility] WBC (Bld) [#/Vol] 11.3 10*3/uL High 4.1-10.5 [facility] Comment on above: Performed By: #### C MP, PAB, CBC ####[place] [id number] [facility] Comprehensive Metabolic Pane rc 06-23-2024 Albumin [Mass/Vol] 3.5 g/dL Normal 3.5-5.7 [facility] Comment on above: Performed By: #### C MP, PAB, CBC ####[place] [id number] [facility] Albumin/Globulin [Mass ratio] 1.6 {ratio} Normal [facility] Comment on above: Performed By: #### C MP, PAB, CBC ####[place] [id number] [facility] ALP [Catalytic activity/Vol] 50 U/L Normal 34-104 [facility] Comment on above: Performed By: #### C MP, PAB, CBC ####[place] [id number] [facility] ALT [Catalytic activity/Vol] 16 U/L Normal 7-52 [facility] Comment on above: Performed By: #### C MP, PAB, CBC ####[place] [id number] [facility] Anion gap [Moles/Vol] 11.3 mmol/L Normal 6.0-15.0 [facility] Comment on above: Performed By: #### C MP, PAB, CBC ####[place] [id number] [facility] AST [Catalytic activity/Vol] 18 U/L Normal 13-39 [facility] Comment on above: Performed By: #### C MP, PAB, CBC ####[place] [id number] [facility] Bilirubin [Mass/Vol] 0.7 mg/dL Normal 0.3-1.0 [facility] Comment on above: Performed By: #### C MP, PAB, CBC ####[address] [address] [facility] Calcium [Mass/Vol] 9.1 mg/dL Normal 8.6-10.3 [facility] Comment on above: Performed By: #### C MP, PAB, CBC ####[place] [id number] [place] Chloride [Moles/Vol] 100 mmol/L Normal 98-107 [facility] Comment on above: Performed By: #### C MP, PAB, CBC ####[place] [id number] [facility] CO2 [Moles/Vol] 33.6 mmol/L High 21.0-31.0 [facility] Comment on above: Performed By: #### C MP, PAB, CBC ####[place] [id number] [facility] Creatinine [Mass/Vol] 1.62 mg/dL High 0.70-1.30 [facility] Comment on above: Performed By: #### C MP, PAB, CBC ####[place] [id number] [place] Creatinine Clr Calc Pharmacy 50.98 Normal [facility] Comment on above: Performed By: #### C MP, PAB, CBC ####[place] [id number] [place] GFR/1.73 sq M.predicted MDRD (S/P/Bld) [Vol rate/Area] 42.646 mL/min/{1.73_m2} Normal [facility] Comment on above: Performed By: #### C MP, PAB, CBC ####[place] [id number] [place] Globulin (S) [Mass/Vol] 2.2 g/dL Normal [facility] Comment on above: Performed By: #### C MP, PAB, CBC ####[place] [id number] [place] Glucose [Mass/Vol] 119 mg/dL High 70-100 [facility] Comment on above: Result Comment: [facility] Glucose Reference Range is dependent on time and content of last meal. Glucose of more than 200 mg/dL in a nonstressed, ambulatory subject supports the diagnosis of Diabetes Mellitus. ADA recommended reference range Performed By: #### C MP, PAB, CBC ####[place] [id number] [facility] Potassium [Moles/Vol] 3.9 mmol/L Normal 3.5-5.1 [facility] Comment on above: Performed By: #### C MP, PAB, CBC ####[place] [id number] [facility] Protein [Mass/Vol] 5.7 g/dL Low 6.4-8.9 [facility] Comment on above: Performed By: #### C MP, PAB, CBC ####[place] [id number] [facility] Sodium [Moles/Vol] 141 mmol/L Normal 136-145 [facility] Comment on above: Performed By: #### C MP, PAB, CBC ####[place] [id number] [facility] Urea nitrogen [Mass/Vol] 44 mg/dL High 7-25 [facility] Comment on above: Performed By: #### C SUZANNE, PAB, CBC ####[place] [id number] [facility] Globulin Calc (S) [Mass/Vol] Ordered By: Antonia Grier on 06-23-2024 Globulin (S) [Mass/Vol] Serum globulin measurement by calculation (mass/volume) [facility] Prealbuminon 06-23-2024 Prealbumin [Mass/Vol] 32.1 mg/dL Normal 17.0-34.0 [facility] Comment on above: Result Comment: PERF ORMED BY:[address] [place], [place] [phone] MEDICAL HUY CARDONA M.D. Performed By: #### C MP, PAB, CBC ####[place] [id number] [facility] Prealbumin [Mass/volume] in Serum or PlasmaOrdered By: Antonia Grier on 06-23-2024 Prealbumin [Mass/Vol] Prealbumin [Mass/v olume] in Serum or Plasma 17.0-34.0 [facility] Protein [Mass/volume] in Ser um or PlasmaOrdered By: Antonia Grier on 06-23-2024 Protein [Mass/Vol] Protein [Mass/volume ] in Serum or Plasma Low 6.4-8.9 [facility] Serum or plasma albumin/glob ulin mass ratioOrdered By: Antonia Grier on 06-23-2024 Albumin/Globulin [Mass ratio] Serum or plasma albumin/globulin mass ratio [facility] Automated basophil %Ordered By: Mateo Horne on 06-22-2024 Basophils/100 WBC (Bld) 0.1 % Normal . [facility] Comment on above: Performed By: #### M G, CBC, BMP ####[address] Automated basophil countOrde red By: Mateo Horne on 06-22-2024 Basophils (Bld) [#/Vol] 0.0 10*3/uL Normal 0.0-0.2 [facility] Comment on above: Result Comment: PERF ORMED BY:[address] [place], [place] [phone] MEDICAL DIRECTORGINA CARDONA M.D. Performed By: #### M G, CBC, BMP ####[place] [address] [place] [id number] [facility] Automated blood monocyte cou ntOrdered By: Mateo Horne on 06-22-2024 Monocytes (Bld) [#/Vol] 1.1 10*3/uL High 0.0-0.8 [facility] Comment on above: Performed By: #### M G, CBC, BMP ####[place] [address] Automated eosinophil %Ordere d By: Mateo Horne on 11-02-2024 Eosinophils/100 WBC (Bld) 0.2 % Normal . [facility] Comment on above: Performed By: #### M G, CBC, BMP ####[address] Automated eosinophil countOr dered By: Mateo Horne on 06-22-2024 Eosinophils (Bld) [#/Vol] 0.0 10*3/uL Normal 0.0-0.45 [facility] Comment on above: Performed By: #### M G, CBC, BMP ####[address] Automated monocyte %Ordered By: Mateo Horne on 06-22-2024 Monocytes/100 WBC (Bld) 9.8 % Normal . [facility] Comment on above: Performed By: #### M G, CBC, BMP ####[address] Automated neutrophil %Ordere d By: Mateo Horne on 06-22-2024 Neutrophils/100 WBC (Bld) 77.3 % Normal . [facility] Comment on above: Performed By: #### M G, CBC, BMP ####[address] Basic Metabolic Panelon 11 Creatinine Clr Calc Pharmacy 47.41 Normal [facility] Comment on above: Performed By: #### M G, CBC, BMP ####[address] GFR/1.73 sq M.predicted MDRD (S/P/Bld) [Vol rate/Area] 39.967 mL/min/{1.73_m2} Normal [facility] Comment on above: Performed By: #### M G, CBC, BMP ####[address] Basophils Auto (Bld) [#/Vol] Ordered By: Mateo Horne on 06-22-2024 Basophils (Bld) [#/Vol] Automated basophil count 0.0-0.[address] [facility] Basophils/100 WBC Auto (Bld) Ordered By: Mateo Horne on 06-22-2024 Basophils/100 WBC (Bld) Automated basophil % . [facility] Calcium [Mass/volume] in Ser um or PlasmaOrdered By: Mateo Horne on 06-22-2024 Calcium [Mass/Vol] 8.9 mg/dL Normal 8.6-10.3 [facility] Comment on above: Performed By: #### M G, CBC, BMP ####[facility] [id number] [place] [address] [facility] Calcium [Mass/Vol] Calcium [Mass/volume ] in Serum or Plasma 8.6-10.3 [facility] Carbon dioxide, total [Moles /volume] in Serum or PlasmaOrdered By: Mateo Horne on 06-22-2024 CO2 [Moles/Vol] 32.8 mmol/L High 21.0-31.0 [facility] Comment on above: Performed By: #### M G, CBC, BMP ####[facility] [id number] [place] [address] [facility] CO2 [Moles/Vol] Carbon dioxide, tota l [Moles/volume] in Serum or Plasma High 21.0-31.0 [facility] Chloride [Moles/volume] in [place] or PlasmaOrdered By: Mateo Horne on 06-22-2024 Chloride [Moles/Vol] 98 mmol/L Normal 98-107 [facility] Comment on above: Performed By: #### M G, CBC, BMP ####[facility] [id number] [place] [address] [facility] Chloride [Moles/Vol] Chloride [Moles/vol ume] in Serum or Plasma 98-107 [facility] Complete Blood Count Auto Di ffon 06-22-2024 Mean Corpuscular HGB Conc 33.6 g/dL Normal 32.5-35.6 [facility] Comment on above: Performed By: #### M G, CBC, BMP ####[facility] [id number] NRBC% 0.1 /100{WBC} Normal 0-0.5 [facility] Comment on above: Performed By: #### M G, CBC, BMP ####[facility] Creatinine [Mass/volume] in Serum or PlasmaOrdered By: Mtaeo Horne on 06-22-2024 Creatinine [Mass/Vol] 1.71 mg/dL High 0.70-1.30 [facility] Comment on above: Performed By: #### M G, CBC, BMP ####[place] [address] Creatinine [Mass/Vol] Creatinine [Mass/v olume] in Serum or Plasma High 0.70-1.30 [facility] Eosinophils Auto (Bld) [#/Vo l]Ordered By: Mateo Horne on 06-22-2024 Eosinophils (Bld) [#/Vol] Automated eosinophil count 0.0-0.45 [facility] Eosinophils/100 WBC Auto (Bl d)Ordered By: Mateo Horne on 06-22-2024 Eosinophils/100 WBC (Bld) Automated eosinophil % . [facility] Erythrocyte distribution wid th Auto (RBC) [Ratio]Ordered By: Mateo Horne on 06-22-2024 Erythrocyte distribution width (RBC) [Ratio] Erythrocyte distribution width [Ratio] by Automated count 12.0-14.8 [facility] Erythrocyte distribution wid th [Ratio] by Automated countOrdered By: Mateo Horne on 06-22-2024 Erythrocyte distribution width (RBC) [Ratio] 14.8 % Normal 12.0-14.8 [facility] Comment on above: Performed By: #### M G, CBC, BMP ####[place] [address] Erythrocytes [#/volume] in B lood by Automated countOrdered By: Mateo Horne on 06-22-2024 RBC (Bld) [#/Vol] 4.40 10*6/uL Normal 3.90-5.60 [facility] Comment on above: Performed By: #### M G, CBC, BMP ####[facility]1111 [place] [id number] [facility] Glucose [Mass/volume] in Ser um or PlasmaOrdered By: Mateo Horne on 06-22-2024 Glucose [Mass/Vol] 116 mg/dL High 70-100 [facility] Comment on above: ADA recommended refe rence rangeRandom Glucose Reference Range is dependent on time and content of last meal. Glucose of more than 200 mg/dL in a nonstressed, ambulatory subject supports the diagnosis of Diabetes Mellitus. Result Comment: [place] Glucose Reference Range is dependent on time and content of last meal. Glucose of more than 200 mg/dL in a nonstressed, ambulatory subject supports the diagnosis of Diabetes Mellitus. ADA recommended reference range Performed By: #### M G, CBC, BMP ####[facility]1111 [place] [id number] [facility] Glucose [Mass/Vol] Glucose [Mass/volume ] in Serum or Plasma High 70-100 [facility] Comment on above: ADA recommended refe rence rangeRandom Glucose Reference Range is dependent on time and content of last meal. Glucose of more than 200 mg/dL in a nonstressed, ambulatory subject supports the diagnosis of Diabetes Mellitus. Hematocrit Auto (Bld) [Volum e fraction]Ordered By: Mateo Horne on 06-22-2024 Hematocrit (Bld) [Volume fraction] Hematocrit [Volume Fraction] of Blood by Automated count 38.8-50.0 [facility] Hematocrit [Volume Fraction] of Blood by Automated countOrdered By: Mateo Horne on 06-22-2024 Hematocrit (Bld) [Volume fraction] 40.5 % Normal 38.8-50.0 [facility] Comment on above: Performed By: #### M G, CBC, BMP ####[facility]1111 [place] [id number] [facility] Hemoglobin [Mass/volume] in BloodOrdered By: Mateo Horne on 06-22-2024 Hemoglobin (Bld) [Mass/Vol] 13.6 g/dL Normal 13.0-17.0 [facility] Comment on above: Performed By: #### M G, CBC, BMP ####[place] [address] Hemoglobin (Bld) [Mass/Vol] Hemoglobin [Mass/volume] in Blood 13.0-17.0 [facility] Leukocytes [#/volume] correc blessing for nucleated erythrocytes in Blood by Automated counOrdered By: Mateo Horne on 06-22-2024 WBC corrected for nucl RBC Auto (Bld) [#/Vol] 11.1 10*3/uL High 4.1-10.5 [facility] WBC corrected for nucl RBC Auto (Bld) [#/Vol] Leukocytes [#/volume] corrected for nucleated erythrocytes in Blood by Automated coun High 4.1-10.5 [facility] Leukocytes [#/volume] in Blo od by Automated countOrdered By: Mateo Horne on 06-22-2024 WBC (Bld) [#/Vol] 11.1 10*3/uL High 4.1-10.5 [facility] Comment on above: Performed By: #### Marcial Young, CBC, BMP ####[address] Lymphocytes Auto (Bld) [#/Vo l]Ordered By: Mateo Horne on 06-22-2024 Lymphocytes (Bld) [#/Vol] Lymphocytes [#/volume] in Blood by Automated count 1.00-4.8 [facility] Lymphocytes [#/volume] in Bl ood by Automated countOrdered By: Mateo Horne on 06-22-2024 Lymphocytes (Bld) [#/Vol] 1.4 10*3/uL Normal 1.00-4.8 [facility] Comment on above: Performed By: #### M G, CBC, BMP ####[place] [address] Lymphocytes/100 WBC Auto (Bl d)Ordered By: Mateo Horne on 06-22-2024 Lymphocytes/100 WBC (Bld) Lymphocytes/100 leukocytes in Blood by Automated count . [facility] Lymphocytes/100 leukocytes i n Blood by Automated countOrdered By: Mateo Horne on 06-22-2024 Lymphocytes/100 WBC (Bld) 12.6 % Normal . [facility] Comment on above: Performed By: #### M G, CBC, BMP ####[facility] [id number] MCH Auto (RBC) [Entitic mass ]Ordered By: Mateo Horne on 06-22-2024 MCH (RBC) [Entitic mass] MCH [Entitic mass] by Automated count 27.5-35.2 [facility] MCH [Entitic mass] by Automa blessing countOrdered By: Mateo Horne on 06-22-2024 MCH (RBC) [Entitic mass] 30.9 pg Normal 27.5-35.2 [facility] Comment on above: Performed By: #### M G, CBC, BMP ####[address] MCHC Auto (RBC) [Mass/Vol]Or dered By: Mateo Horne on 06-22-2024 MCHC (RBC) [Mass/Vol] 33.6 g/dL 32.5-35.6 [facility] MCHC (RBC) [Mass/Vol] MCHC [Mass/volume] by Automated count 32.5-35.6 [facility] MCV Auto (RBC) [Entitic vol] Ordered By: Mateo Horne on 06-22-2024 MCV (RBC) [Entitic vol] MCV [Entitic volume] by Automated count 83.5-101 [facility] MCV [Entitic volume] by Auto mated countOrdered By: Mateo Horne on 06-22-2024 MCV (RBC) [Entitic vol] 92.0 fL Normal 83.5-101 [facility] Comment on above: Performed By: #### M G, CBC, BMP ####[facility] [id number] [place], [place] [id number] [facility] Magnesium [Mass/volume] in [place] or PlasmaOrdered By: Mateo Horne on 06-22-2024 Magnesium [Mass/Vol] 2.0 mg/dL Normal 1.9-2.7 [facility] Comment on above: Result Comment: PERF ORMED BY:[address] [place], [place] [phone] MEDICAL DIRECTORGINA CARDONA M.D. Performed By: #### M G, CBC, BMP ####[facility] [id number] [place] [address] [facility] Magnesium [Mass/Vol] Magnesium [Mass/vol ume] in Serum or Plasma 1.9-2.7 [facility] Monocytes Auto (Bld) [#/Vol] Ordered By: Mateo Horne on 06-22-2024 Monocytes (Bld) [#/Vol] Automated blood monocyte count High 0.0-0.8 [facility] Monocytes/100 WBC Auto (Bld) Ordered By: Mateo Horne on 06-22-2024 Monocytes/100 WBC (Bld) Automated monocyte % . [facility] Neutrophils Auto (Bld) [#/Vo l]Ordered By: Mateo Horne on 06-22-2024 Neutrophils (Bld) [#/Vol] Neutrophils [#/volume] in Blood by Automated count High 1.8-7.7 [facility] Neutrophils [#/volume] in Bl ood by Automated countOrdered By: Mateo Horne on 06-22-2024 Neutrophils (Bld) [#/Vol] 8.6 10*3/uL High 1.8-7.7 [facility] Comment on above: Performed By: #### M G, CBC, BMP ####[facility] [id number] [place] [address] [facility] Neutrophils/100 WBC Auto (Bl d)Ordered By: Mateo Horne on 06-22-2024 Neutrophils/100 WBC (Bld) Automated neutrophil % . [facility] No Panel InformationOrdered By: Mateo Horne on 06-22-2024 Estimated GFR (CKD-EPI) 39.967 mL/Min [facility] Creatinine Clearance (Chem 47.41 [facility] 39.967 mL/Min [facility] 47.41 [facility] Nucleated erythrocytes [Pres ence] in Blood by Automated countOrdered By: Mateo Horne on 06-22-2024 Nucleated RBC Auto Ql (Bld) 0.1 /100{WBC} 0-0.5 [facility] Nucleated RBC Auto Ql (Bld) Nucleated erythrocytes [Presence] in Blood by Automated count 0-0.5 [facility] Platelet mean volume Auto (B ld) [Entitic vol]Ordered By: Mateo Horne on 06-22-2024 Platelet mean volume (Bld) [Entitic vol] Platelet mean volume [Entitic volume] in Blood by Automated count 6.6-10.1 [facility] Platelet mean volume [Entiti c volume] in Blood by Automated countOrdered By: Mateo Horne on 06-22-2024 Platelet mean volume (Bld) [Entitic vol] 8.6 fL Normal 6.6-10.1 [facility] Comment on above: Performed By: #### M G, CBC, BMP ####[facility] [id number] Platelets Auto (Bld) [#/Vol] Ordered By: Mateo Horne on 06-22-2024 Platelets (Bld) [#/Vol] Platelets [#/volume] in Blood by Automated count 150-450 [facility] Platelets [#/volume] in Bloo d by Automated countOrdered By: Mateo Horne on 06-22-2024 Platelets (Bld) [#/Vol] 187 10*3/uL Normal 150-450 [facility] Comment on above: Performed By: #### M G, CBC, BMP ####[facility] [id number] [place] [id number] [facility] Potassium [Moles/volume] in Serum or PlasmaOrdered By: Mateo Horne on 06-22-2024 Potassium [Moles/Vol] 3.2 mmol/L Low 3.5-5.1 [facility] Comment on above: Performed By: #### M Hannah, CBC, BMP ####[place] [address] [place] [id number] [facility] Potassium [Moles/Vol] Potassium [Moles/v olume] in Serum or Plasma Low 3.5-5.1 [facility] RBC Auto (Bld) [#/Vol]Ordere d By: Mateo Horne on 06-22-2024 RBC (Bld) [#/Vol] Erythrocytes [#/volu me] in Blood by Automated count 3.90-5.60 [facility] Serum or plasma anion gap de terminationOrdered By: Mateo Horne on 06-22-2024 Anion gap [Moles/Vol] 12.4 mmol/L Normal 6.0-15.0 [facility] Comment on above: Performed By: #### M Hannah, CBC, BMP ####[place] [id number] [facility] Anion gap [Moles/Vol] Serum or plasma an ion gap determination 6.0-15.0 [facility] Sodium [Moles/volume] in Ser um or PlasmaOrdered By: Mateo Horne on 06-22-2024 Sodium [Moles/Vol] 140 mmol/L Normal 136-145 [facility] Comment on above: Performed By: #### M Hannah, CBC, BMP ####[place] [address] [place] [id number] [facility] Sodium [Moles/Vol] Sodium [Moles/volume ] in Serum or Plasma 136-145 [facility] Urea nitrogen [Mass/volume] in Serum or PlasmaOrdered By: Mateo Horne on 06-22-2024 Urea nitrogen [Mass/Vol] 45 mg/dL High 7-25 [facility] Comment on above: Performed By: #### M G, CBC, BMP ####[place] [id number] [facility] Urea nitrogen [Mass/Vol] Urea nitrogen [Mass/volume] in Serum or Plasma High 7-25 [facility] WBC Auto (Bld) [#/Vol]Ordere d By: Mateo Horne on 06-22-2024 WBC (Bld) [#/Vol] Leukocytes [#/volume ] in Blood by Automated count High 4.1-10.5 [facility] Basic Metabolic Panelon 11-0 Anion gap [Moles/Vol] 12.1 mmol/L Normal 6.0-15.0 Th e [facility] Comment on above: Performed By: #### C BC, MG, BMP ####[place] [address] Calcium [Mass/Vol] 9.2 mg/dL Normal 8.6-10.3 [facility] Comment on above: Performed By: #### C BC, MG, BMP ####[place] [address] [place] [id number] [facility] Chloride [Moles/Vol] 97 mmol/L Low 98-107 [facility] Comment on above: Performed By: #### C BC, MG, BMP ####[place] [address] [place] [address] [facility] CO2 [Moles/Vol] 34.3 mmol/L High 21.0-31.0 [facility] Comment on above: Performed By: #### C BC, MG, BMP ####[place] [address] [place] [address] [facility] Creatinine [Mass/Vol] 1.51 mg/dL High 0.70-1.30 [facility] Comment on above: Performed By: #### C BC, MG, BMP ####[place] [address] [place] [address] [place] Creatinine Clr Calc Pharmacy 53.97 Normal [facility] Comment on above: Performed By: #### C BC, MG, BMP ####[place] [address] [place] [address] [place] GFR/1.73 sq M.predicted MDRD (S/P/Bld) [Vol rate/Area] 46.401 mL/min/{1.73_m2} Normal [facility] Comment on above: Performed By: #### C BC, MG, BMP ####[place] [id number] [facility] Glucose [Mass/Vol] 133 mg/dL High 70-100 [facility] Comment on above: Result Comment: [facility] Glucose Reference Range is dependent on time and content of last meal. Glucose of more than 200 mg/dL in a nonstressed, ambulatory subject supports the diagnosis of Diabetes Mellitus. ADA recommended reference range Performed By: #### C BC, MG, BMP ####[place] [id number] [facility] Potassium [Moles/Vol] 3.4 mmol/L Low 3.5-5.1 [facility] Comment on above: Performed By: #### C BC, MG, BMP ####[address] Sodium [Moles/Vol] 140 mmol/L Normal 136-145 [facility] Comment on above: Performed By: #### C BC, MG, BMP ####[place] [id number] [facility] Urea nitrogen [Mass/Vol] 35 mg/dL High 7-25 [facility] Comment on above: Performed By: #### C BC, MG, BMP ####[place] [id number] [facility] Complete Blood Count Auto Di ffon 06-21-2024 Basophils (Bld) [#/Vol] 0.0 10*3/uL Normal 0.0-0.2 [facility] Comment on above: Result Comment: PERF ORMED BY:[address] [place], [place] [phone] MEDICAL DIRECTORGINA CARDONA M.D. Performed By: #### C BC, MG, BMP ####[place] [id number] [facility] Basophils/100 WBC (Bld) 0.2 % Normal . [facility] Comment on above: Performed By: #### C BC, MG, BMP ####[address] Eosinophils (Bld) [#/Vol] 0.0 10*3/uL Normal 0.0-0.45 [facility] Comment on above: Performed By: #### C BC, MG, BMP ####[address] Eosinophils/100 WBC (Bld) 0.0 % Normal . [facility] Comment on above: Performed By: #### C BC, MG, BMP ####[address] Erythrocyte distribution width (RBC) [Ratio] 15.0 % High 12.0-14.8 [facility] Comment on above: Performed By: #### C BC, MG, BMP ####[address] Hematocrit (Bld) [Volume fraction] 40.8 % Normal 38.8-50.0 [facility] Comment on above: Performed By: #### C BC, MG, BMP ####[address] Hemoglobin (Bld) [Mass/Vol] 13.7 g/dL Normal 13.0-17.0 [facility] Comment on above: Performed By: #### C BC, MG, BMP ####[address] Lymphocytes (Bld) [#/Vol] 1.0 10*3/uL Normal 1.00-4.8 [facility] Comment on above: Performed By: #### C BC, MG, BMP ####[address] Lymphocytes/100 WBC (Bld) 8.9 % Normal . [facility] Comment on above: Performed By: #### C BC, MG, BMP ####[address] MCH (RBC) [Entitic mass] 31.0 pg Normal 27.5-35.2 [facility] Comment on above: Performed By: #### C BC, MG, BMP ####[address] MCV (RBC) [Entitic vol] 92.0 fL Normal 83.5-101 [facility] Comment on above: Performed By: #### C BC, MG, BMP ####[address] Mean Corpuscular HGB Conc 33.7 g/dL Normal 32.5-35.6 [facility] Comment on above: Performed By: #### C BC, MG, BMP ####[address] Monocytes (Bld) [#/Vol] 1.1 10*3/uL High 0.0-0.8 [facility] Comment on above: Performed By: #### C BC, MG, BMP ####[address] Monocytes/100 WBC (Bld) 9.1 % Normal . [facility] Comment on above: Performed By: #### C BC, MG, BMP ####[address] Neutrophils (Bld) [#/Vol] 9.6 10*3/uL High 1.8-7.7 [facility] Comment on above: Performed By: #### C BC, MG, BMP ####[address] Neutrophils/100 WBC (Bld) 81.8 % Normal . [facility] Comment on above: Performed By: #### C BC, MG, BMP ####[address] NRBC% 0.1 /100{WBC} Normal 0-0.5 [facility] Comment on above: Performed By: #### C BC, MG, BMP ####[address] Platelet mean volume (Bld) [Entitic vol] 8.4 fL Normal 6.6-10.1 [facility] Comment on above: Performed By: #### C BC, MG, BMP ####[place] [address] Platelets (Bld) [#/Vol] 199 10*3/uL Normal 150-450 [facility] Comment on above: Performed By: #### C BC, MG, BMP ####[address] RBC (Bld) [#/Vol] 4.43 10*6/uL Normal 3.90-5.60 [facility] Comment on above: Performed By: #### C BC, MG, BMP ####[address] WBC (Bld) [#/Vol] 11.8 10*3/uL High 4.1-10.5 [facility] Comment on above: Performed By: #### C BC, MG, BMP ####[address] Magnesiumon 06-21-2024 Magnesium [Mass/Vol] 1.8 mg/dL Low 1.9-2.7 [facility] Comment on above: Result Comment: PERF ORMED BY:[place] [address] [address] [place], [place] [phone] MEDICAL DIRECTORGINA CARDONA M.D. Performed By: #### C BC, MG, BMP ####[address] A1C with Estimated Average G luon 06-20-2024 Glucose [Mass/Vol] 148 mg/dL Normal [facility] Comment on above: Result Comment: PERF ORMED BY:[address] [place], [place] [phone] MEDICAL DIRECTORGINA CARDONA M.D. Performed By: #### H S TROP, BMP, MG, A1C WTH eA, CBC ####[address] Basic Metabolic Panelon 10-3 Anion gap [Moles/Vol] 12.7 mmol/L Normal 6.0-15.0 Th e [facility] Comment on above: Performed By: #### H S TROP, BMP, MG, A1C WTH eA, CBC ####[address] Calcium [Mass/Vol] 9.1 mg/dL Normal 8.6-10.3 [facility] Comment on above: Performed By: #### H S TROP, BMP, MG, A1C WTH eA, CBC ####[address] Chloride [Moles/Vol] 101 mmol/L Normal 98-107 [facility] Comment on above: Performed By: #### H S TROP, BMP, MG, A1C WTH eA, CBC ####[address] CO2 [Moles/Vol] 33.0 mmol/L High 21.0-31.0 [facility] Comment on above: Performed By: #### H S TROP, BMP, MG, A1C WTH eA, CBC ####[address] Creatinine [Mass/Vol] 1.27 mg/dL Normal 0.70-1.30 [facility] Comment on above: Performed By: #### H S TROP, BMP, MG, A1C WTH eA, CBC ####[address] Creatinine Clr Calc Pharmacy 64.75 Normal [facility] Comment on above: Performed By: #### H S TROP, BMP, MG, A1C WTH eA, CBC ####[address] GFR/1.73 sq M.predicted MDRD (S/P/Bld) [Vol rate/Area] 57.112 mL/min/{1.73_m2} Normal [facility] Comment on above: Performed By: #### H S TROP, BMP, MG, A1C WTH eA, CBC ####[facility] [place] [address] [facility] Glucose [Mass/Vol] 140 mg/dL High 70-100 [facility] Comment on above: Result Comment: [facility] Glucose Reference Range is dependent on time and content of last meal. Glucose of more than 200 mg/dL in a nonstressed, ambulatory subject supports the diagnosis of Diabetes Mellitus. ADA recommended reference range Performed By: #### H S TROP, BMP, MG, A1C WTH eA, CBC ####[place] [address] [place] [address] [facility] Potassium [Moles/Vol] 3.7 mmol/L Normal 3.5-5.1 [facility] Comment on above: Performed By: #### H S TROP, BMP, MG, A1C WTH eA, CBC ####[place] [address] [place] [address] [facility] Sodium [Moles/Vol] 143 mmol/L Normal 136-145 [facility] Comment on above: Performed By: #### H S TROP, BMP, MG, A1C WTH eA, CBC ####[address] [address] [facility] Urea nitrogen [Mass/Vol] 27 mg/dL High 7-25 [facility] Comment on above: Performed By: #### H S TROP, BMP, MG, A1C WTH eA, CBC ####[place] [id number] [facility] Blood estimated average gluc ose determination by estimation from glycated hemoglobinOrdered By: Mateo Horne on 06-20-2024 Average glucose Estimated from glycated hemoglobin (Bld) [Mass/Vol] Glucose mean value [Mass/volume] in Blood Estimated from glycated hemoglobin [facility] Complete Blood Count Auto Di ffon 06-20-2024 Basophils (Bld) [#/Vol] 0.1 10*3/uL Normal 0.0-0.2 [facility] Comment on above: Result Comment: PERF ORMED BY:[address] [place], [place] [phone] MEDICAL DIRECTORGINA CARDONA M.D. Performed By: #### H S TROP, BMP, MG, A1C WTH eA, CBC ####[address] Basophils/100 WBC (Bld) 1.0 % Normal . [facility] Comment on above: Performed By: #### H S TROP, BMP, MG, A1C WTH eA, CBC ####[address] Eosinophils (Bld) [#/Vol] 0.0 10*3/uL Normal 0.0-0.45 [facility] Comment on above: Performed By: #### H S TROP, BMP, MG, A1C WTH eA, CBC ####[address] Eosinophils/100 WBC (Bld) 0.0 % Normal . [facility] Comment on above: Performed By: #### H S TROP, BMP, MG, A1C WTH eA, CBC ####[address] Erythrocyte distribution width (RBC) [Ratio] 14.7 % Normal 12.0-14.8 [facility] Comment on above: Performed By: #### H S TROP, BMP, MG, A1C WTH eA, CBC ####[address] Hematocrit (Bld) [Volume fraction] 41.6 % Normal 38.8-50.0 [facility] Comment on above: Performed By: #### H S TROP, BMP, MG, A1C WTH eA, CBC ####[address] Hemoglobin (Bld) [Mass/Vol] 13.9 g/dL Normal 13.0-17.0 [facility] Comment on above: Performed By: #### H S TROP, BMP, MG, A1C WTH eA, CBC ####[address] Lymphocytes (Bld) [#/Vol] 0.7 10*3/uL Low 1.00-4.8 [facility] Comment on above: Performed By: #### H S TROP, BMP, MG, A1C WTH eA, CBC ####[address] Lymphocytes/100 WBC (Bld) 7.1 % Normal . [facility] Comment on above: Performed By: #### H S TROP, BMP, MG, A1C WTH eA, CBC ####[address] MCH (RBC) [Entitic mass] 30.9 pg Normal 27.5-35.2 [facility] Comment on above: Performed By: #### H S TROP, BMP, MG, A1C WTH eA, CBC ####[address] MCV (RBC) [Entitic vol] 92.7 fL Normal 83.5-101 [facility] Comment on above: Performed By: #### H S TROP, BMP, MG, A1C WTH eA, CBC ####[address] Mean Corpuscular HGB Conc 33.4 g/dL Normal 32.5-35.6 [facility] Comment on above: Performed By: #### H S TROP, BMP, MG, A1C WTH eA, CBC ####[address] Monocytes (Bld) [#/Vol] 0.7 10*3/uL Normal 0.0-0.8 [facility] Comment on above: Performed By: #### H S TROP, BMP, MG, A1C WTH eA, CBC ####[address] Monocytes/100 WBC (Bld) 7.2 % Normal . [facility] Comment on above: Performed By: #### H S TROP, BMP, MG, A1C WTH eA, CBC ####[address] Neutrophils (Bld) [#/Vol] 8.0 10*3/uL High 1.8-7.7 [facility] Comment on above: Performed By: #### H S TROP, BMP, MG, A1C WTH eA, CBC ####[address] Neutrophils/100 WBC (Bld) 84.7 % Normal . [facility] Comment on above: Performed By: #### H S TROP, BMP, MG, A1C WTH eA, CBC ####[address] NRBC% 0.1 /100{WBC} Normal 0-0.5 [facility] Comment on above: Performed By: #### H S TROP, BMP, MG, A1C WTH eA, CBC ####[address] Platelet mean volume (Bld) [Entitic vol] 8.5 fL Normal 6.6-10.1 [facility] Comment on above: Performed By: #### H S TROP, BMP, MG, A1C WTH eA, CBC ####[address] Platelets (Bld) [#/Vol] 196 10*3/uL Normal 150-450 [facility] Comment on above: Performed By: #### H S TROP, BMP, MG, A1C WTH eA, CBC ####[address] RBC (Bld) [#/Vol] 4.49 10*6/uL Normal 3.90-5.60 [facility] Comment on above: Performed By: #### H S TROP, BMP, MG, A1C WTH eA, CBC ####[address] WBC (Bld) [#/Vol] 9.5 10*3/uL Normal 4.1-10.5 [facility] Comment on above: Performed By: #### H S TROP, BMP, MG, A1C WTH eA, CBC ####[address] ECG 12 lead ECGon 06-20-2024 ECG 12 lead ECG Normal [facility] ECH echo transthoracicon ECH echo transthoracic Normal Th e [facility] Glucose mean value [Mass/vol ume] in Blood Estimated from glycated hemoglobinOrdered By: Mateo Horne on 06-20-2024 Average glucose Estimated from glycated hemoglobin (Bld) [Mass/Vol] 148 mg/dL [facility] Hemoglobin A1c percentageOrd ered By: Mateo Horne on 06-20-2024 HbA1c (Bld) [Mass fraction] 6.8 % High 4.3-5.6 [facility] Comment on above: Increased risk for d iabetes: 5.7 - 6.4diabetes: >6.4glycemic control for adults with diabetes: <7.0 Result Comment: Incr eased risk for diabetes: 5.7 - 6.4 diabetes: >6.4 glycemic control for adults with diabetes: <7.0 Performed By: #### H S TROP, BMP, MG, A1C WTH eA, CBC ####[facility] [id number] [place] [id number] [facility] Hemoglobin A1c/Hemoglobin.to sherrell in BloodOrdered By: Mateo Horne on 06-20-2024 HbA1c (Bld) [Mass fraction] Hemoglobin A1c percentage High 4.3-5.6 [facility] Comment on above: Increased risk for d iabetes: 5.7 - 6.4diabetes: >6.4glycemic control for adults with diabetes: <7.0 Magnesiumon 06-20-2024 Magnesium [Mass/Vol] 1.7 mg/dL Low 1.9-2.7 [facility] Comment on above: Result Comment: PERF ORMED BY:[place] [address] [place], [place] [phone] MEDICAL DIRECTORGINA CARDONA M.D. Performed By: #### H S TROP, BMP, MG, A1C WTH eA, CBC ####[facility] [id number] [place] [id number] [facility] Troponin I High Sensitivityo n 06-20-2024 Troponin I High Sensitivity 8.2 pg/mL Normal 0.0-20.0 [facility] Comment on above: Result Comment: PERF ORMED BY:[address] [place], [place] [phone] MEDICAL DIRECTORGINA CARDONA M.D. Performed By: #### H S TROP, BMP, MG, A1C WTH eA, CBC ####[place] [address] [place] [address] [facility] Troponin I.cardiac [Mass/vol ume] in Serum or Plasma by Detection limit <= 0.01 ng/Ordered By: Mateo Horne on 06-20-2024 Troponin I.cardiac DL <= 0.01 ng/mL [Mass/Vol] 8.2 pg/mL 0.0-20.0 [facility] Troponin I.cardiac DL <= 0.01 ng/mL [Mass/Vol] Troponin I.cardiac [Mass/volume] in Serum or Plasma by Detection limit <= 0.01 ng/ 0.0-20.0 [facility] Alanine aminotransferase [En zymatic activity/volume] in Serum or PlasmaOrdered By: Dg Jacobson on 06-19-2024 ALT [Catalytic activity/Vol] 16 U/L Normal [facility] Comment on above: Performed By: #### B COMPUTER CUSTOMER SUPPORT SPECIALIST, MG, HS TROP, CBC, CMP, CK ####[address] [address] [facility] ALT [Catalytic activity/Vol] Alanine aminotransferase [Enzymatic activity/volume] in Serum or Plasma [facility] Albumin [Mass/volume] in Ser um or Plasma by Bromocresol green (BCG) dye binding methoOrdered By: Dg Jacobson on 06-19-2024 Albumin BCG dye [Mass/Vol] 3.8 g/dL 3.5-5.7 [facility] Albumin BCG dye [Mass/Vol] Albumin [Mass/volume] in Serum or Plasma by Bromocresol green (BCG) dye binding metho 3.5-5.7 [facility] Alkaline phosphatase [Enzyma tic activity/volume] in Serum or PlasmaOrdered By: Dg Jacobson on 06-19-2024 ALP [Catalytic activity/Vol] 52 U/L Normal [facility] Comment on above: Performed By: #### B COMPUTER CUSTOMER SUPPORT SPECIALIST, MG, HS TROP, CBC, CMP, CK ####[place] [address] ALP [Catalytic activity/Vol] Alkaline phosphatase [Enzymatic activity/volume] in Serum or Plasma [facility] Aspartate aminotransferase [ Enzymatic activity/volume] in Serum or PlasmaOrdered By: Dg Jacobson on 06-19-2024 AST [Catalytic activity/Vol] 21 U/L Normal [facility] Comment on above: Performed By: #### B COMPUTER CUSTOMER SUPPORT SPECIALIST, MG, HS TROP, CBC, CMP, CK ####[address] AST [Catalytic activity/Vol] Aspartate aminotransferase [Enzymatic activity/volume] in Serum or Plasma [facility] Automated basophil %Ordered By: Dg Jacobson on 06-19-2024 Basophils/100 WBC (Bld) 1.0 % Normal . [facility] Comment on above: Performed By: #### B COMPUTER CUSTOMER SUPPORT SPECIALIST, MG, HS TROP, CBC, CMP, CK ####[address] Automated basophil countOrde red By: Dg Jacobson on 06-19-2024 Basophils (Bld) [#/Vol] 0.1 10*3/uL Normal 0.0-0.2 [facility] Comment on above: Result Comment: PERF ORMED BY:[address] [place], [place] [phone] MEDICAL DIRECTORGINA CARDONA M.D. Performed By: #### B COMPUTER CUSTOMER SUPPORT SPECIALIST, MG, HS TROP, CBC, CMP, CK ####[address] Automated blood monocyte cou ntOrdered By: Dg Jacobson on 06-19-2024 Monocytes (Bld) [#/Vol] 1.0 10*3/uL High 0.0-0.8 [facility] Comment on above: Performed By: #### B COMPUTER CUSTOMER SUPPORT SPECIALIST, MG, HS TROP, CBC, CMP, CK ####[address] Automated eosinophil %Ordere d By: Dg Jacobson on 06-19-2024 Eosinophils/100 WBC (Bld) 1.2 % Normal . [facility] Comment on above: Performed By: #### B COMPUTER CUSTOMER SUPPORT SPECIALIST, MG, HS TROP, CBC, CMP, CK ####[address] Automated eosinophil countOr dered By: Dg Jacobson on 06-19-2024 Eosinophils (Bld) [#/Vol] 0.1 10*3/uL Normal 0.0-0.45 [facility] Comment on above: Performed By: #### B COMPUTER CUSTOMER SUPPORT SPECIALIST, MG, HS TROP, CBC, CMP, CK ####[address] Automated monocyte %Ordered By: Dg Jacobson on 06-19-2024 Monocytes/100 WBC (Bld) 11.3 % Normal . [facility] Comment on above: Performed By: #### B COMPUTER CUSTOMER SUPPORT SPECIALIST, MG, HS TROP, CBC, CMP, CK ####[address] Automated neutrophil %Ordere d By: Dg Jacobson on 06-19-2024 Neutrophils/100 WBC (Bld) 59.0 % Normal . [facility] Comment on above: Performed By: #### B COMPUTER CUSTOMER SUPPORT SPECIALIST, MG, HS TROP, CBC, CMP, CK ####[address] BNP ser/plasOrdered By: José Manuel Jacobson on 06-19-2024 Natriuretic peptide B (Bld) [Mass/Vol] 114.0 pg/mL High 5-100 [facility] Comment on above: Result Comment: PERF ORMED BY:[address] [place], [place] [phone] MEDICAL DIRECTORGINA CARDONA M.D. Performed By: #### B COMPUTER CUSTOMER SUPPORT SPECIALIST, MG, HS TROP, CBC, CMP, CK ####[address] Bilirubin.total [Mass/volume ] in Serum or PlasmaOrdered By: Dg Jacobson on 06-19-2024 Bilirubin [Mass/Vol] 0.8 mg/dL Normal 0.3-1.0 [facility] Comment on above: Performed By: #### B COMPUTER CUSTOMER SUPPORT SPECIALIST, MG, HS TROP, CBC, CMP, CK ####[address] Bilirubin [Mass/Vol] Bilirubin.total [Mass/volume] in Serum or Plasma 0.3-1.0 [facility] Calcium [Mass/volume] in Ser um or PlasmaOrdered By: Dg Jacobson on 06-19-2024 Calcium [Mass/Vol] 9.0 mg/dL Normal 8.6-10.3 [facility] Comment on above: Performed By: #### B COMPUTER CUSTOMER SUPPORT SPECIALIST, MG, HS TROP, CBC, CMP, CK ####[address] Carbon dioxide, total [Moles /volume] in Serum or PlasmaOrdered By: Dg Jacobson on 06-19-2024 CO2 [Moles/Vol] 29.8 mmol/L Normal 21.0-31.0 [facility] Comment on above: Performed By: #### B COMPUTER CUSTOMER SUPPORT SPECIALIST, MG, HS TROP, CBC, CMP, CK ####[address] Chloride [Moles/volume] in [place] or PlasmaOrdered By: Dg Jacobson on 06-19-2024 Chloride [Moles/Vol] 106 mmol/L Normal 98-107 [facility] Comment on above: Performed By: #### B COMPUTER CUSTOMER SUPPORT SPECIALIST, MG, HS TROP, CBC, CMP, CK ####[address] Complete Blood Count Auto Di ffon 06-19-2024 Mean Corpuscular HGB Conc 33.1 g/dL Normal 32.5-35.6 [facility] Comment on above: Performed By: #### B COMPUTER CUSTOMER SUPPORT SPECIALIST, MG, HS TROP, CBC, CMP, CK ####[address] Monocytes/100 WBC (Bld) 17.50 % Normal 0.00-20.00 [facility] Comment on above: Performed By: #### B COMPUTER CUSTOMER SUPPORT SPECIALIST, MG, HS TROP, CBC, CMP, CK ####[address] NRBC% 0.1 /100{WBC} Normal 0-0.5 [facility] Comment on above: Performed By: #### B COMPUTER CUSTOMER SUPPORT SPECIALIST, MG, HS TROP, CBC, CMP, CK ####[address] Comprehensive Metabolic Pane rc 06-19-2024 Albumin [Mass/Vol] 3.8 g/dL Normal 3.5-5.7 [facility] Comment on above: Performed By: #### B COMPUTER CUSTOMER SUPPORT SPECIALIST, MG, HS TROP, CBC, CMP, CK ####[address] Creatinine Clr Calc Pharmacy 62.88 Normal [facility] Comment on above: Result Comment: PERF ORMED BY:[address] [place], [place] [phone] MEDICAL HUY CARDONA M.D. Performed By: #### B COMPUTER CUSTOMER SUPPORT SPECIALIST, MG, HS TROP, CBC, CMP, CK ####[address] GFR/1.73 sq M.predicted MDRD (S/P/Bld) [Vol rate/Area] 53.076 mL/min/{1.73_m2} Normal [facility] Comment on above: Performed By: #### B COMPUTER CUSTOMER SUPPORT SPECIALIST, MG, HS TROP, CBC, CMP, CK ####[address] Creatine kinase [Enzymatic a ctivity/volume] in Serum or PlasmaOrdered By: Dg Jacobson on 06-19-2024 CK [Catalytic activity/Vol] 153 U/L Normal [facility] Comment on above: Performed By: #### B COMPUTER CUSTOMER SUPPORT SPECIALIST, MG, HS TROP, CBC, CMP, CK ####[place] [address] [address] CK [Catalytic activity/Vol] Creatine kinase [Enzymatic activity/volume] in Serum or Plasma [facility] Creatinine [Mass/volume] in Serum or PlasmaOrdered By: Dg Jacobson on 06-19-2024 Creatinine [Mass/Vol] 1.35 mg/dL High 0.70-1.30 [facility] Comment on above: Performed By: #### B COMPUTER CUSTOMER SUPPORT SPECIALIST, MG, HS TROP, CBC, CMP, CK ####[place] [address] [address] ECG 12 lead ECGon 06-19-2024 ECG 12 lead ECG Normal [facility] Erythrocyte distribution wid th [Ratio] by Automated countOrdered By: Dg Jacobson on 06-19-2024 Erythrocyte distribution width (RBC) [Ratio] 15.2 % High 12.0-14.8 [facility] Comment on above: Performed By: #### B COMPUTER CUSTOMER SUPPORT SPECIALIST, MG, HS TROP, CBC, CMP, CK ####[address] Erythrocytes [#/volume] in B lood by Automated countOrdered By: Dg Jacobson on 06-19-2024 RBC (Bld) [#/Vol] 4.44 10*6/uL Normal 3.90-5.60 [facility] Comment on above: Performed By: #### B COMPUTER CUSTOMER SUPPORT SPECIALIST, MG, HS TROP, CBC, CMP, CK ####[address] Globulin Calc (S) [Mass/Vol] Ordered By: Dg Jacobson on 06-19-2024 Globulin (S) [Mass/Vol] Serum globulin measurement by calculation (mass/volume) [facility] Glucose [Mass/volume] in Ser um or PlasmaOrdered By: Dg Jacobson on 06-19-2024 Glucose [Mass/Vol] 107 mg/dL High 70-100 [facility] Comment on above: ADA recommended refe rence rangeRandom Glucose Reference Range is dependent on time and content of last meal. Glucose of more than 200 mg/dL in a nonstressed, ambulatory subject supports the diagnosis of Diabetes Mellitus. Result Comment: [place] Glucose Reference Range is dependent on time and content of last meal. Glucose of more than 200 mg/dL in a nonstressed, ambulatory subject supports the diagnosis of Diabetes Mellitus. ADA recommended reference range Performed By: #### B COMPUTER CUSTOMER SUPPORT SPECIALIST, MG, HS TROP, CBC, CMP, CK ####[place] [address] [address] Hematocrit [Volume Fraction] of Blood by Automated countOrdered By: Dg Jacobson on 06-19-2024 Hematocrit (Bld) [Volume fraction] 41.5 % Normal 38.8-50.0 [facility] Comment on above: Performed By: #### B COMPUTER CUSTOMER SUPPORT SPECIALIST, MG, HS TROP, CBC, CMP, CK ####[address] Hemoglobin [Mass/volume] in BloodOrdered By: Dg Jacosbon on 06-19-2024 Hemoglobin (Bld) [Mass/Vol] 13.7 g/dL Normal 13.0-17.0 [facility] Comment on above: Performed By: #### B COMPUTER CUSTOMER SUPPORT SPECIALIST, MG, HS TROP, CBC, CMP, CK ####[address] Leukocytes [#/volume] correc blessing for nucleated erythrocytes in Blood by Automated counOrdered By: Dg Jacobson on 06-19-2024 WBC corrected for nucl RBC Auto (Bld) [#/Vol] 8.7 10*3/uL 4.1-10.5 [facility] Leukocytes [#/volume] in Blo od by Automated countOrdered By: Dg Jacobson on 06-19-2024 WBC (Bld) [#/Vol] 8.7 10*3/uL Normal 4.1-10.5 [facility] Comment on above: Performed By: #### B COMPUTER CUSTOMER SUPPORT SPECIALIST, MG, HS TROP, CBC, CMP, CK ####[address] Lymphocytes [#/volume] in Bl ood by Automated countOrdered By: Dg Jacobson on 06-19-2024 Lymphocytes (Bld) [#/Vol] 2.4 10*3/uL Normal 1.00-4.8 [facility] Comment on above: Performed By: #### B COMPUTER CUSTOMER SUPPORT SPECIALIST, MG, HS TROP, CBC, CMP, CK ####[address] Lymphocytes/100 leukocytes i n Blood by Automated countOrdered By: Dg Jacobson on 06-19-2024 Lymphocytes/100 WBC (Bld) 27.5 % Normal . [facility] Comment on above: Performed By: #### B COMPUTER CUSTOMER SUPPORT SPECIALIST, MG, HS TROP, CBC, CMP, CK ####[address] MCH [Entitic mass] by Automa blessing countOrdered By: Dg Jacobson on 06-19-2024 MCH (RBC) [Entitic mass] 31.0 pg Normal 27.5-35.2 [facility] Comment on above: Performed By: #### B COMPUTER CUSTOMER SUPPORT SPECIALIST, MG, HS TROP, CBC, CMP, CK ####[address] MCHC Auto (RBC) [Mass/Vol]Or dered By: Dg Jacobson on 06-19-2024 MCHC (RBC) [Mass/Vol] 33.1 g/dL 32.5-35.6 [facility] MCV [Entitic volume] by Auto mated countOrdered By: Dg Jacobson on 06-19-2024 MCV (RBC) [Entitic vol] 93.6 fL Normal 83.5-101 [facility] Comment on above: Performed By: #### B COMPUTER CUSTOMER SUPPORT SPECIALIST, MG, HS TROP, CBC, CMP, CK ####[address] Magnesiumon 06-19-2024 Magnesium [Mass/Vol] 1.9 mg/dL Normal 1.9-2.7 [facility] Comment on above: Result Comment: PERF ORMED BY:[facility] [place], [place] [phone] MEDICAL DIRECTORGINA CARDONA M.D. Performed By: #### B COMPUTER CUSTOMER SUPPORT SPECIALIST, MG, HS TROP, CBC, CMP, CK ####[facility] [place] [address] [facility] Monocyte distribution width [Entitic volume] in Blood by AutomatedOrdered By: Dg Jacobson on 06-19-2024 Monocyte distribution width Auto (Bld) [Entitic vol] 17.50 % 0.00-20.00 [facility] Monocyte distribution width Auto (Bld) [Entitic vol] Monocyte distribution width [Entitic volume] in Blood by Automated 0.00-20.00 [facility] Natriuretic peptide B [Mass/ Vol]Ordered By: Dg Jacobson on 06-19-2024 Natriuretic peptide B (Bld) [Mass/Vol] BNP ser/plas High 5-100 [facility] Neutrophils [#/volume] in Bl ood by Automated countOrdered By: Dg Jacobson on 06-19-2024 Neutrophils (Bld) [#/Vol] 5.1 10*3/uL Normal 1.8-7.7 [facility] Comment on above: Performed By: #### B COMPUTER CUSTOMER SUPPORT SPECIALIST, MG, HS TROP, CBC, CMP, CK ####[place] [address] [place] [id number] [facility] No Panel InformationOrdered By: Dg Jacobson on 06-19-2024 Estimated GFR (CKD-EPI) 53.076 mL/Min [facility] Creatinine Clearance (Chem 62.88 [facility] Nucleated erythrocytes [Pres ence] in Blood by Automated countOrdered By: Dg Jacobson on 06-19-2024 Nucleated RBC Auto Ql (Bld) 0.1 /100{WBC} 0-0.5 [facility] Platelet mean volume [Entiti c volume] in Blood by Automated countOrdered By: Dg Jacobson on 06-19-2024 Platelet mean volume (Bld) [Entitic vol] 8.1 fL Normal 6.6-10.1 [facility] Comment on above: Performed By: #### B COMPUTER CUSTOMER SUPPORT SPECIALIST, MG, HS TROP, CBC, CMP, CK ####[place] [id number] [facility] Platelets [#/volume] in Bloo d by Automated countOrdered By: Dg Jacobson on 06-19-2024 Platelets (Bld) [#/Vol] 200 10*3/uL Normal 150-450 [facility] Comment on above: Performed By: #### B COMPUTER CUSTOMER SUPPORT SPECIALIST, MG, HS TROP, CBC, CMP, CK ####[place] [id number] [facility] Potassium [Moles/volume] in Serum or PlasmaOrdered By: Dg Jacobson on 06-19-2024 Potassium [Moles/Vol] 3.4 mmol/L Low 3.5-5.1 [facility] Comment on above: Performed By: #### B COMPUTER CUSTOMER SUPPORT SPECIALIST, MG, HS TROP, CBC, CMP, CK ####[place] [id number] [facility] Protein [Mass/volume] in Ser um or PlasmaOrdered By: Dg Jacobson on 06-19-2024 Protein [Mass/Vol] 6.5 g/dL Normal 6.4-8.9 [facility] Comment on above: Performed By: #### B COMPUTER CUSTOMER SUPPORT SPECIALIST, MG, HS TROP, CBC, CMP, CK ####[place] [id number] [facility] Protein [Mass/Vol] Protein [Mass/volume ] in Serum or Plasma 6.4-8.9 [facility] Serum globulin measurement b y calculation (mass/volume)Ordered By: Dg Jacobson on 06-19-2024 Globulin (S) [Mass/Vol] 2.7 g/dL Normal [facility] Comment on above: Performed By: #### B COMPUTER CUSTOMER SUPPORT SPECIALIST, MG, HS TROP, CBC, CMP, CK ####[place] [id number] [facility] Serum or plasma albumin/glob ulin mass ratioOrdered By: Dg Jacobson on 06-19-2024 Albumin/Globulin [Mass ratio] 1.4 {ratio} Normal [facility] Comment on above: Performed By: #### B COMPUTER CUSTOMER SUPPORT SPECIALIST, MG, HS TROP, CBC, CMP, CK ####[place] [address] [place] [phone] [facility] Albumin/Globulin [Mass ratio] Serum or plasma albumin/globulin mass ratio [facility] Serum or plasma anion gap de terminationOrdered By: Dg Jacobson on 06-19-2024 Anion gap [Moles/Vol] 11.6 mmol/L Normal 6.0-15.0 [facility] Comment on above: Performed By: #### B COMPUTER CUSTOMER SUPPORT SPECIALIST, MG, HS TROP, CBC, CMP, CK ####[place] [address] [place] [phone] [facility] Sodium [Moles/volume] in Ser um or PlasmaOrdered By: Dg Jacobson on 06-19-2024 Sodium [Moles/Vol] 144 mmol/L Normal 136-145 [facility] Comment on above: Performed By: #### B COMPUTER CUSTOMER SUPPORT SPECIALIST, MG, HS TROP, CBC, CMP, CK ####[place] [id number] [facility] Troponin I High Sensitivityo n 06-19-2024 Troponin I High Sensitivity 10.5 pg/mL Normal 0.0-20.0 [facility] Comment on above: Result Comment: PERF ORMED BY:[address] [place], [place] [phone] MEDICAL HUY CARDONA M.D. Performed By: #### B COMPUTER CUSTOMER SUPPORT SPECIALIST, MG, HS TROP, CBC, CMP, CK ####[address] [address] [facility] Troponin I.cardiac [Mass/vol ume] in Serum or Plasma by Detection limit <= 0.01 ng/Ordered By: Dg Jacobson on 06-19-2024 Troponin I.cardiac DL <= 0.01 ng/mL [Mass/Vol] 10.5 pg/mL 0.0-20.0 [facility] Urea nitrogen [Mass/volume] in Serum or PlasmaOrdered By: Dg Jacobson on 06-19-2024 Urea nitrogen [Mass/Vol] 32 mg/dL High 7- [facility] Comment on above: Performed By: #### B COMPUTER CUSTOMER SUPPORT SPECIALIST, MG, HS TROP, CBC, CMP, CK ####[facility] [address] [place] [address] [facility] XR chest 1V portableon 06-19 XR chest 1V portable Normal [facility] Alanine aminotransferase [En zymatic activity/volume] in Serum or PlasmaOrdered By: Eriberto Leyva on 02-12-2024 ALT [Catalytic activity/Vol] 22 U/L 7-52 [facility] Albumin [Mass/volume] in Ser um or Plasma by Bromocresol green (BCG) dye binding methoOrdered By: Eriberto Leyva on 02-12-2024 Albumin BCG dye [Mass/Vol] 3.6 g/dL 3.5-5.7 [facility] Alkaline phosphatase [Enzyma tic activity/volume] in Serum or PlasmaOrdered By: Eriberto Leyva on 02-12-2024 ALP [Catalytic activity/Vol] 62 U/L 34-104 [facility] Aspartate aminotransferase [ Enzymatic activity/volume] in Serum or PlasmaOrdered By: Eriberto Leyva on 02-12-2024 AST [Catalytic activity/Vol] 20 U/L 13-39 [facility] Bacteria [Presence] in Urine by AutomatedOrdered By: Eriberto Leyva on 02-12-2024 Bacteria Auto Ql (U) None seen [HPF] None Seen [facility] Basophils Auto (Bld) [#/Vol] Ordered By: Eriberto Leyva on 02-12-2024 Basophils (Bld) [#/Vol] 0.1 10*3/uL 0.0-0.2 [facility] Basophils/100 WBC Auto (Bld) Ordered By: Eriberto Leyva on 02-12-2024 Basophils/100 WBC (Bld) 0.6 % . [facility] Bilirubin Test strip Ql (U)O rdered By: Eriberto Leyva on 02-12-2024 Bilirubin Ql (U) Negative Negative [facility] Bilirubin.total [Mass/volume ] in Serum or PlasmaOrdered By: Eriberto Leyva on 02-12-2024 Bilirubin [Mass/Vol] 0.8 mg/dL 0.3-1.0 [facility] Calcium [Mass/volume] in Ser um or PlasmaOrdered By: Eriberto Leyva on 02-12-2024 Calcium [Mass/Vol] 9.1 mg/dL 8.6-10.3 [facility] Carbon dioxide, total [Moles /volume] in Serum or PlasmaOrdered By: Eriberto Leyva on 02-12-2024 CO2 [Moles/Vol] 30.7 mmol/L 21.0-31.0 [facility] Chloride [Moles/volume] in [place] or PlasmaOrdered By: Eriberto Leyva on 02-12-2024 Chloride [Moles/Vol] 113 mmol/L 98-107 [facility] Color Auto (U)Ordered By: Lydia Leyva on 02-12-2024 Color (U) Light-yellow Yellow [facility] Creatine kinase [Enzymatic a ctivity/volume] in Serum or PlasmaOrdered By: Eriberto Leyva on 02-12-2024 CK [Catalytic activity/Vol] 113 U/L 30-223 [facility] Creatinine [Mass/volume] in Serum or PlasmaOrdered By: Eriberto Leyva on 02-12-2024 Creatinine [Mass/Vol] 1.26 mg/dL 0.70-1.30 [facility] Eosinophils Auto (Bld) [#/Vo l]Ordered By: Eriberto Leyva on 02-12-2024 Eosinophils (Bld) [#/Vol] 0.0 10*3/uL 0.0-0.45 [facility] Eosinophils/100 WBC Auto (Bl d)Ordered By: Eriberto Leyva on 02-12-2024 Eosinophils/100 WBC (Bld) 0.0 % . [facility] Epithelial cells.squamous [# /area] in Urine sediment by Automated countOrdered By: Eriberto Leyva on 02-12-2024 Epithelial cells.squamous Auto (Urine sed) [#/Area] N/A [facility] Erythrocyte distribution wid th Auto (RBC) [Ratio]Ordered By: Eriberto Leyva on 02-12-2024 Erythrocyte distribution width (RBC) [Ratio] 17.0 % 12.0-14.8 [facility] Erythrocyte sedimentation ra te by Photometric methodOrdered By: Eriberto Leyva on 02-12-2024 ESR Photometric method (Bld) [Velocity] 13 mm/hr 0-19 [facility] Erythrocytes [#/area] in Uri ne sediment by Automated countOrdered By: Eriberto Leyva on 02-12-2024 RBC Auto (Urine sed) [#/Area] 10-19 [HPF] 0-4 [facility] Globulin Calc (S) [Mass/Vol] Ordered By: Eriberto Leyva on 02-12-2024 Globulin (S) [Mass/Vol] 2.4 g/dL [facility] Glucose [Mass/volume] in Ser um or PlasmaOrdered By: Eriberto Leyva on 02-12-2024 Glucose [Mass/Vol] 133 mg/dL 70-100 [facility] Comment on above: ADA recommended refe rence rangeRandom Glucose Reference Range is dependent on time and content of last meal. Glucose of more than 200 mg/dL in a nonstressed, ambulatory subject supports the diagnosis of Diabetes Mellitus. Glucose [Mass/volume] in Uri ne by Test stripOrdered By: Eriberto Leyva on 02-12-2024 Glucose Test strip (U) [Mass/Vol] Normal mg/dL Normal [facility] Hematocrit Auto (Bld) [Volum e fraction]Ordered By: Eriberto Leyva on 02-12-2024 Hematocrit (Bld) [Volume fraction] 41.3 % 38.8-50.0 [facility] Hemoglobin Test strip Ql (U) Ordered By: Eriberto Leyva on 02-12-2024 Hemoglobin Ql (U) Trace Negative [facility] Hemoglobin [Mass/volume] in BloodOrdered By: Eriberto Leyva on 02-12-2024 Hemoglobin (Bld) [Mass/Vol] 13.7 g/dL 13.0-17.0 [facility] Hyaline casts [#/area] in Ur ine sediment by Automated countOrdered By: Eriberto Leyva on 02-12-2024 Hyaline casts Auto (Urine sed) [#/Area] None [LPF] 0-8 [facility] Ketones Test strip Ql (U)Ord ered By: Eriberto Leyva on 02-12-2024 Ketones Ql (U) Negative Negative [facility] Lactate [Moles/volume] in Se rum or PlasmaOrdered By: rEiberto Leyva on 02-12-2024 Lactate [Moles/Vol] 1.2 mmol/L 0.5-2.2 [facility] Leukocyte esterase [Presence ] in Urine by Test stripOrdered By: Eriberto Leyva on 02-12-2024 Leukocyte esterase Test strip Ql (U) Negative Negative [facility] Leukocytes [#/area] in Urine sediment by Automated countOrdered By: Eriberto Leyva on 02-12-2024 WBC Auto (Urine sed) [#/Area] 1-2 [HPF] 0-4 [facility] Leukocytes [#/volume] correc blessing for nucleated erythrocytes in Blood by Automated counOrdered By: Eriberto Leyva on 02-12-2024 WBC corrected for nucl RBC Auto (Bld) [#/Vol] 10.0 10*3/uL 4.1-10.5 [facility] Lymphocytes Auto (Bld) [#/Vo l]Ordered By: Eriberto Leyva on 02-12-2024 Lymphocytes (Bld) [#/Vol] 0.6 10*3/uL 1.00-4.8 [facility] Lymphocytes/100 WBC Auto (Bl d)Ordered By: Eriberto Leyva on 02-12-2024 Lymphocytes/100 WBC (Bld) 6.4 % . [facility] MCH Auto (RBC) [Entitic mass ]Ordered By: Eriberto Leyva on 02-12-2024 MCH (RBC) [Entitic mass] 30.0 pg 27.5-35.2 [facility] MCHC Auto (RBC) [Mass/Vol]Or dered By: Eriberto Leyva on 02-12-2024 MCHC (RBC) [Mass/Vol] 33.2 g/dL 32.5-35.6 [facility] MCV Auto (RBC) [Entitic vol] Ordered By: Eriberto Leyva on 02-12-2024 MCV (RBC) [Entitic vol] 90.2 fL 83.5-101 [facility] Monocyte distribution width [Entitic volume] in Blood by AutomatedOrdered By: Eriberto Leyva on 02-12-2024 Monocyte distribution width Auto (Bld) [Entitic vol] 20.05 % 0.00-20.00 [facility] Comment on above: For adults in ED, MD W > 20.0 may be associated with a higher risk of sepsis during the first 12 hrs of hospital admission Monocytes Auto (Bld) [#/Vol] Ordered By: Eriberto Leyva on 02-12-2024 Monocytes (Bld) [#/Vol] 0.5 10*3/uL 0.0-0.8 [facility] Monocytes/100 WBC Auto (Bld) Ordered By: Eriberto Leyva on 02-12-2024 Monocytes/100 WBC (Bld) 5.2 % . [facility] Neutrophils Auto (Bld) [#/Vo l]Ordered By: Eriberto Leyva on 02-12-2024 Neutrophils (Bld) [#/Vol] 8.8 10*3/uL 1.8-7.7 [facility] Neutrophils/100 WBC Auto (Bl d)Ordered By: Eriberto Leyva on 02-12-2024 Neutrophils/100 WBC (Bld) 87.8 % . [facility] Nitrite Test strip Ql (U)Ord ered By: Eriberto Leyva on 02-12-2024 Nitrite Ql (U) Negative Negative [facility] No Panel InformationOrdered By: Eriberto Leyva on 02-12-2024 Estimated GFR (CKD-EPI) 57.657 mL/Min [facility] Creatinine Clearance (Chem 64.79 [facility] Nucleated erythrocytes [Pres ence] in Blood by Automated countOrdered By: Eriberto Leyva on 02-12-2024 Nucleated RBC Auto Ql (Bld) 0.0 /100{WBC} 0-0.5 [facility] Platelet mean volume Auto (B ld) [Entitic vol]Ordered By: Eriberto Leyva on 02-12-2024 Platelet mean volume (Bld) [Entitic vol] 8.3 fL 6.6-10.1 [facility] Platelets Auto (Bld) [#/Vol] Ordered By: Eriberto Leyva on 02-12-2024 Platelets (Bld) [#/Vol] 155 10*3/uL 150-450 [facility] Potassium [Moles/volume] in Serum or PlasmaOrdered By: Eriberto Leyva on 02-12-2024 Potassium [Moles/Vol] 4.1 mmol/L 3.5-5.1 [facility] Protein Test strip (U) [Mass /Vol]Ordered By: Eriberto Leyva on 02-12-2024 Protein (U) [Mass/Vol] Negative Negative [facility] Protein [Mass/volume] in Ser um or PlasmaOrdered By: Eriberto Leyva on 02-12-2024 Protein [Mass/Vol] 6.0 g/dL 6.4-8.9 [facility] RBC Auto (Bld) [#/Vol]Ordere d By: Eriberto Leyva on 02-12-2024 RBC (Bld) [#/Vol] 4.58 10*6/uL 3.90-5.60 [facility] Serum or plasma albumin/glob ulin mass ratioOrdered By: Eriberto Leyva on 02-12-2024 Albumin/Globulin [Mass ratio] 1.5 {ratio} [facility] Serum or plasma anion gap de terminationOrdered By: Eriberto Leyva on 02-12-2024 Anion gap [Moles/Vol] -1.6000 mmol/L 6.0-15.0 [facility] Sodium [Moles/volume] in Ser um or PlasmaOrdered By: Eriberto Leyva on 02-12-2024 Sodium [Moles/Vol] 138 mmol/L 136-145 [facility] Specific gravity Test strip (U) [Rel density]Ordered By: Eriberto Leyva on 02-12-2024 Specific gravity (U) [Rel density] 1.017 1.001-1.03 0 [facility] Thyrotropin [Units/volume] i n Serum or PlasmaOrdered By: Eriberto Leyva on 02-12-2024 TSH Qn 1.22 m[IU]/L 0.45-5.33 [facility] Troponin I.cardiac [Mass/vol ume] in Serum or Plasma by Detection limit <= 0.01 ng/Ordered By: Eriberto Leyva on 02-12-2024 Troponin I.cardiac DL <= 0.01 ng/mL [Mass/Vol] 7.6 pg/mL 0.0-20.0 [facility] Urea nitrogen [Mass/volume] in Serum or PlasmaOrdered By: Eriberto Leyva on 02-12-2024 Urea nitrogen [Mass/Vol] 30 mg/dL 7-25 [facility] Urine appearanceOrdered By: Eriberto Leyva on 02-12-2024 Appearance (U) Clear Clear [facility] Urobilinogen Test strip (U) [Mass/Vol]Ordered By: Eriberto Leyva on 02-12-2024 Urobilinogen (U) [Mass/Vol] Normal mg/dL Normal [facility] WBC Auto (Bld) [#/Vol]Ordere d By: Eriberto Leyva on 02-12-2024 WBC (Bld) [#/Vol] 10.0 10*3/uL 4.1-10.5 [facility] pH Test strip (U)Ordered By: Eriberto Leyva on 02-12-2024 pH (U) 6.0 [pH] 5.0-9.0 [facility] SURGICAL PATHOLOGY REFERENCE LAB CONSULTon 2023 CASE REPORT Normal [facility] Comment on above: Order Comment: Speci men Type: FORMALIN-FIXED PARAFFIN-EMBEDDED TISSUE SPECIMEN Ordering Facility: [facility] Address: [address] [place], [place] [id number] Result Comment: Surg ical Pathology Report Case: [id number] Authorizing Provider: Ivan Barnhart MD Collected: 2023 09:46 AM Ordering Location: [facility] Received: 2023 09:46 AM [facility] Pathologist: Olivier Mina MD Specimen: SLIDE(S), 2 SLIDES [id number] Performed By: #### L [id number] #### [facility] CLIA [id number] [address] [place] [address] [place] CLINICAL HISTORY CONSULT REQUESTED [facility] Comment on above: Order Comment: Speci men Type: FORMALIN-FIXED PARAFFIN-EMBEDDED TISSUE SPECIMEN Ordering Facility: [facility] Address: [address] [place] [address] [place] [address] Performed By: #### L [id number] #### [facility] CLIA [id number] [address] [place] [address] [place] DIAGNOSIS COMMENT Thank you for allowi ng me to review this bladder lesion from an 78-year-old man. 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 Normal [facility] Comment on above: Order Comment: Speci men Type: FORMALIN-FIXED PARAFFIN-EMBEDDED TISSUE SPECIMEN Ordering Facility: [facility] Address: [place] [id number] Performed By: #### L [id number] #### [facility] CLIA [id number] [address] [place] [address] [place] [facility] FINAL DIAGNOSIS Normal [facility] Comment on above: Order Comment: Speci men Type: FORMALIN-FIXED PARAFFIN-EMBEDDED TISSUE SPECIMEN Ordering Facility: [facility] Address: [facility] [place] [id number] Result Comment: [facility]; [place], [place] ([id number], 09/14/23) A. Urinary bladder, biopsy: - Benign nephrogenic adenoma. JKM 2023 Performed By: #### L [id number] #### [facility] CLIA [id number] [address] [place] [address] [place] FINAL PERFORMING LAB Normal [facility] Comment on above: Order Comment: Speci men Type: FORMALIN-FIXED PARAFFIN-EMBEDDED TISSUE SPECIMEN Ordering Facility: [facility] Address: [address] [place] [id number] Result Comment: Diag nostic interpretation performed at [facility], [address] [place] [address] CLIA# [id number] Game Trapper: Jaylan Mcfadden M.D. Performed By: #### L [id number] #### [facility] CLIA [id number] [address] [place] [address] [place] ECG 12 Leadon 09-20-2023 Sinus bradycardia otherwise normal ECG [facility] Work Phone: Basophils Auto (Bld) [#/Vol] Ordered By: Antonia Grier on 05-30-2023 Basophils (Bld) [#/Vol] 0.0 10*3/uL 0.0-0.2 [facility] Basophils/100 WBC Auto (Bld) Ordered By: Antonia Grier on 05-30-2023 Basophils/100 WBC (Bld) 0.2 % . [facility] Calcium [Mass/volume] in Ser um or PlasmaOrdered By: Antonia Grier on 05-30-2023 Calcium [Mass/Vol] 8.6 mg/dL 8.6-10.3 [facility] Carbon dioxide, total [Moles /volume] in Serum or PlasmaOrdered By: Antonia Grier on 05-30-2023 CO2 [Moles/Vol] 30.6 mmol/L 21.0-31.0 [facility] Chloride [Moles/volume] in [place] or PlasmaOrdered By: Antonia Grier on 05-30-2023 Chloride [Moles/Vol] 104 mmol/L 98-107 [facility] Clostridioides difficile tox in B tcdB gene [Presence] in Stool by JAYDE with probe deteOrdered By: Silvestre Grover on 05-30-2023 C. difficile toxin B tcdB gene JAYDE+probe Ql (Stl) Negative Negative [facility] Comment on above: Testing performed by RT-PCR Creatinine [Mass/volume] in Serum or PlasmaOrdered By: Antonia Grier on 05-30-2023 Creatinine [Mass/Vol] 0.91 mg/dL 0.70-1.30 [facility] Eosinophils Auto (Bld) [#/Vo l]Ordered By: Antonia Grier on 05-30-2023 Eosinophils (Bld) [#/Vol] 0.2 10*3/uL 0.0-0.45 [facility] Eosinophils/100 WBC Auto (Bl d)Ordered By: Antonia Grier on 05-30-2023 Eosinophils/100 WBC (Bld) 3.8 % . [facility] Erythrocyte distribution wid th Auto (RBC) [Ratio]Ordered By: Antonia Grier on 05-30-2023 Erythrocyte distribution width (RBC) [Ratio] 18.1 % 12.0-14.8 [facility] Glucose [Mass/volume] in Ser um or PlasmaOrdered By: Antonia Grier on 05-30-2023 Glucose [Mass/Vol] 98 mg/dL 70-100 [facility] Comment on above: ADA recommended refe rence rangeRandom Glucose Reference Range is dependent on time and content of last meal. Glucose of more than 200 mg/dL in a nonstressed, ambulatory subject supports the diagnosis of Diabetes Mellitus. Hematocrit Auto (Bld) [Volum e fraction]Ordered By: Antonia Grier on 05-30-2023 Hematocrit (Bld) [Volume fraction] 36.5 % 38.8-50.0 [facility] Hemoglobin [Mass/volume] in BloodOrdered By: Antonia Grier on 05-30-2023 Hemoglobin (Bld) [Mass/Vol] 12.2 g/dL 13.0-17.0 [facility] Leukocytes [#/volume] correc blessing for nucleated erythrocytes in Blood by Automated counOrdered By: Antonia Grier on 05-30-2023 WBC corrected for nucl RBC Auto (Bld) [#/Vol] 5.6 10*3/uL 4.1-10.5 [facility] Lymphocytes Auto (Bld) [#/Vo l]Ordered By: Antonia Grier on 05-30-2023 Lymphocytes (Bld) [#/Vol] 1.7 10*3/uL 1.00-4.8 [facility] Lymphocytes/100 WBC Auto (Bl d)Ordered By: Antonia Grier on 05-30-2023 Lymphocytes/100 WBC (Bld) 29.7 % . [facility] MCH Auto (RBC) [Entitic mass ]Ordered By: Antonia Grier on 05-30-2023 MCH (RBC) [Entitic mass] 28.7 pg 27.5-35.2 [facility] MCHC Auto (RBC) [Mass/Vol]Or dered By: Antonia Grier on 05-30-2023 MCHC (RBC) [Mass/Vol] 33.4 g/dL 32.5-35.6 [facility] MCV Auto (RBC) [Entitic vol] Ordered By: Antonia Grier on 05-30-2023 MCV (RBC) [Entitic vol] 85.8 fL 83.5-101 [facility] Monocytes Auto (Bld) [#/Vol] Ordered By: Antonia Grier on 05-30-2023 Monocytes (Bld) [#/Vol] 0.8 10*3/uL 0.0-0.8 [facility] Monocytes/100 WBC Auto (Bld) Ordered By: Antonia Grier on 05-30-2023 Monocytes/100 WBC (Bld) 14.8 % . [facility] Neutrophils Auto (Bld) [#/Vo l]Ordered By: Antonia Grier on 05-30-2023 Neutrophils (Bld) [#/Vol] 2.9 10*3/uL 1.8-7.7 [facility] Neutrophils/100 WBC Auto (Bl d)Ordered By: Antonia Grier on 05-30-2023 Neutrophils/100 WBC (Bld) 51.5 % . [facility] No Panel InformationOrdered By: Antonia Greir on 05-30-2023 Estimated GFR (CKD-EPI) > 60.0 mL/Min [facility] Creatinine Clearance (Chem 89.45 [facility] Nucleated erythrocytes [Pres ence] in Blood by Automated countOrdered By: Antonia Grier on 05-30-2023 Nucleated RBC Auto Ql (Bld) 0.2 /100{WBC} 0-0.5 [facility] Platelet mean volume Auto (B ld) [Entitic vol]Ordered By: Antonia Grier on 05-30-2023 Platelet mean volume (Bld) [Entitic vol] 7.9 fL 6.6-10.1 [facility] Platelets Auto (Bld) [#/Vol] Ordered By: Antonia Grier on 05-30-2023 Platelets (Bld) [#/Vol] 258 10*3/uL 150-450 [facility] Potassium [Moles/volume] in Serum or PlasmaOrdered By: Antonia Grier on 05-30-2023 Potassium [Moles/Vol] 3.6 mmol/L 3.5-5.1 [facility] RBC Auto (Bld) [#/Vol]Ordere d By: Antonia Grier on 05-30-2023 RBC (Bld) [#/Vol] 4.25 10*6/uL 3.90-5.60 [facility] Serum or plasma anion gap de terminationOrdered By: Antonia Grier on 05-30-2023 Anion gap [Moles/Vol] 9.0 mmol/L 6.0-15.0 [facility] Sodium [Moles/volume] in Ser um or PlasmaOrdered By: Antonia Grier on 05-30-2023 Sodium [Moles/Vol] 140 mmol/L 136-145 [facility] Urea nitrogen [Mass/volume] in Serum or PlasmaOrdered By: Antonia Grier on 05-30-2023 Urea nitrogen [Mass/Vol] 19 mg/dL 7-25 [facility] WBC Auto (Bld) [#/Vol]Ordere d By: Antonia Grier on 05-30-2023 WBC (Bld) [#/Vol] 5.6 10*3/uL 4.1-10.5 [facility] Alanine aminotransferase [En zymatic activity/volume] in Serum or PlasmaOrdered By: Silvestre Grover on 05-22-2023 ALT [Catalytic activity/Vol] 30 U/L 7-52 [facility] Albumin [Mass/volume] in Ser um or Plasma by Bromocresol green (BCG) dye binding methoOrdered By: Silvestre Grover on 05-22-2023 Albumin BCG dye [Mass/Vol] 2.5 g/dL 3.5-5.7 [facility] Alkaline phosphatase [Enzyma tic activity/volume] in Serum or PlasmaOrdered By: Silvestre Grover on 05-22-2023 ALP [Catalytic activity/Vol] 69 U/L 34-104 [facility] Aspartate aminotransferase [ Enzymatic activity/volume] in Serum or PlasmaOrdered By: Silvestre Grover on 05-22-2023 AST [Catalytic activity/Vol] 34 U/L 13-39 [facility] Bilirubin.total [Mass/volume ] in Serum or PlasmaOrdered By: Silvestre Grover on 05-22-2023 Bilirubin [Mass/Vol] 0.6 mg/dL 0.3-1.0 [facility] Globulin Calc (S) [Mass/Vol] Ordered By: Silvestre Grover on 05-22-2023 Globulin (S) [Mass/Vol] 4.7 g/dL [facility] Prealbumin [Mass/volume] in Serum or PlasmaOrdered By: Silvestre Grover on 05-22-2023 Prealbumin [Mass/Vol] 11.9 mg/dL 17.0-34.0 [facility] Protein [Mass/volume] in Ser um or PlasmaOrdered By: Silvestre Grover on 05-22-2023 Protein [Mass/Vol] 7.2 g/dL 6.4-8.9 [facility] Serum or plasma albumin/glob ulin mass ratioOrdered By: Silvestre Grover on 05-22-2023 Albumin/Globulin [Mass ratio] 0.5 {ratio} [facility] Basophils Auto (Bld) [#/Vol] Ordered By: Donita Armstrong on 05-20-2023 Basophils (Bld) [#/Vol] 0.0 10*3/uL 0.0-0.2 [facility] Basophils/100 WBC Auto (Bld) Ordered By: Donita Patti on 05-20-2023 Basophils/100 WBC (Bld) 0.3 % . [facility] Calcium [Mass/volume] in Ser um or PlasmaOrdered By: Donita Armstrong on 05-20-2023 Calcium [Mass/Vol] 8.1 mg/dL 8.6-10.3 [facility] Carbon dioxide, total [Moles /volume] in Serum or PlasmaOrdered By: Donita Armstrong on 05-20-2023 CO2 [Moles/Vol] 33.6 mmol/L 21.0-31.0 [facility] Chloride [Moles/volume] in [place] or PlasmaOrdered By: Donita Patti on 05-20-2023 Chloride [Moles/Vol] 107 mmol/L 98-107 [facility] Creatinine [Mass/volume] in Serum or PlasmaOrdered By: Donita Patti on 05-20-2023 Creatinine [Mass/Vol] 0.96 mg/dL 0.70-1.30 [facility] Eosinophils Auto (Bld) [#/Vo l]Ordered By: Donita Patti on 05-20-2023 Eosinophils (Bld) [#/Vol] 0.6 10*3/uL 0.0-0.45 [facility] Eosinophils/100 WBC Auto (Bl d)Ordered By: Donita Armstrong on 05-20-2023 Eosinophils/100 WBC (Bld) 10.4 % . [facility] Erythrocyte distribution wid th Auto (RBC) [Ratio]Ordered By: Donita Armstrong on 05-20-2023 Erythrocyte distribution width (RBC) [Ratio] 17.8 % 12.0-14.8 [facility] Glucose [Mass/volume] in Ser um or PlasmaOrdered By: Donita Armstrong on 05-20-2023 Glucose [Mass/Vol] 94 mg/dL 70-100 [facility] Comment on above: ADA recommended refe rence rangeRandom Glucose Reference Range is dependent on time and content of last meal. Glucose of more than 200 mg/dL in a nonstressed, ambulatory subject supports the diagnosis of Diabetes Mellitus. Hematocrit Auto (Bld) [Volum e fraction]Ordered By: Donita Armstrong on 05-20-2023 Hematocrit (Bld) [Volume fraction] 36.9 % 38.8-50.0 [facility] Hemoglobin [Mass/volume] in BloodOrdered By: Donita Armstrong on 05-20-2023 Hemoglobin (Bld) [Mass/Vol] 12.0 g/dL 13.0-17.0 [facility] Leukocytes [#/volume] correc blessing for nucleated erythrocytes in Blood by Automated counOrdered By: Donita Armstrong on 05-20-2023 WBC corrected for nucl RBC Auto (Bld) [#/Vol] 6.0 10*3/uL 4.1-10.5 [facility] Lymphocytes Auto (Bld) [#/Vo l]Ordered By: Donita Armstrong on 05-20-2023 Lymphocytes (Bld) [#/Vol] 1.3 10*3/uL 1.00-4.8 [facility] Lymphocytes/100 WBC Auto (Bl d)Ordered By: Donita Armstrong on 05-20-2023 Lymphocytes/100 WBC (Bld) 22.4 % . [facility] MCH Auto (RBC) [Entitic mass ]Ordered By: Donita Armstorng on 05-20-2023 MCH (RBC) [Entitic mass] 27.9 pg 27.5-35.2 [facility] MCHC Auto (RBC) [Mass/Vol]Or dered By: Donita Armstrong on 05-20-2023 MCHC (RBC) [Mass/Vol] 32.6 g/dL 32.5-35.6 [facility] MCV Auto (RBC) [Entitic vol] Ordered By: Donita Armstrong on 05-20-2023 MCV (RBC) [Entitic vol] 85.6 fL 83.5-101 [facility] Monocytes Auto (Bld) [#/Vol] Ordered By: Donita Armstrong on 05-20-2023 Monocytes (Bld) [#/Vol] 0.5 10*3/uL 0.0-0.8 [facility] Monocytes/100 WBC Auto (Bld) Ordered By: Donita Armstrong on 05-20-2023 Monocytes/100 WBC (Bld) 8.4 % . [facility] Neutrophils Auto (Bld) [#/Vo l]Ordered By: Donita Armstrong on 05-20-2023 Neutrophils (Bld) [#/Vol] 3.5 10*3/uL 1.8-7.7 [facility] Neutrophils/100 WBC Auto (Bl d)Ordered By: Donita Armstrong on 05-20-2023 Neutrophils/100 WBC (Bld) 58.5 % . [facility] No Panel InformationOrdered By: Donita Armstrong on 05-20-2023 Estimated GFR (CKD-EPI) > 60.0 mL/Min [facility] Creatinine Clearance (Chem 87.95 [facility] Nucleated erythrocytes [Pres ence] in Blood by Automated countOrdered By: Donita Armstrong on 05-20-2023 Nucleated RBC Auto Ql (Bld) 0.4 /100{WBC} 0-0.5 [facility] Platelet mean volume Auto (B ld) [Entitic vol]Ordered By: Donita Armstrong on 05-20-2023 Platelet mean volume (Bld) [Entitic vol] 8.5 fL 6.6-10.1 [facility] Platelets Auto (Bld) [#/Vol] Ordered By: Donita Armstrong on 05-20-2023 Platelets (Bld) [#/Vol] 134 10*3/uL 150-450 [facility] Potassium [Moles/volume] in Serum or PlasmaOrdered By: Donita Armstrong on 05-20-2023 Potassium [Moles/Vol] 3.6 mmol/L 3.5-5.1 [facility] RBC Auto (Bld) [#/Vol]Ordere d By: Donita Armstrong on 05-20-2023 RBC (Bld) [#/Vol] 4.31 10*6/uL 3.90-5.60 [facility] Serum or plasma anion gap de terminationOrdered By: Donita Armstrong on 05-20-2023 Anion gap [Moles/Vol] 6.0 mmol/L 6.0-15.0 [facility] Sodium [Moles/volume] in Ser um or PlasmaOrdered By: Donita Armstrong on 05-20-2023 Sodium [Moles/Vol] 143 mmol/L 136-145 [facility] Urea nitrogen [Mass/volume] in Serum or PlasmaOrdered By: Donita Armstrong on 05-20-2023 Urea nitrogen [Mass/Vol] 26 mg/dL 7-25 [facility] WBC Auto (Bld) [#/Vol]Ordere d By: Donita Armstrong on 05-20-2023 WBC (Bld) [#/Vol] 6.0 10*3/uL 4.1-10.5 [facility] Clostridioides difficile tox in B tcdB gene [Presence] in Stool by JAYDE with probe deteOrdered By: Suraj Razo on 05-19-2023 C. difficile toxin B tcdB gene JAYDE+probe Ql (Stl) Negative Negative [facility] Comment on above: Testing performed by RT-PCR Magnesium [Mass/volume] in [place] or PlasmaOrdered By: Suraj Razo on 05-19-2023 Magnesium [Mass/Vol] 2.0 mg/dL 1.9-2.7 [facility] Glucose Glucometer (BldC) [M ass/Vol]Ordered By: Suraj Razo on 05-17-2023 Glucose [Mass/Vol] 107 mg/dL [facility] Comment on above: Random Glucose Refer ence Range is dependent on time and content of last meal. Glucose of more than 200 mg/dL in a nonstressed, ambulatory subject supports the diagnosis of Diabetes Mellitus. Automated erythrocytes count in urine sediment (number/area)Ordered By: Donita Armstrong on 05-16-2023 RBC Auto (Urine sed) [#/Area] 1-2 [HPF] 0-4 [facility] Automated leukocytes count i n urine sediment (number/area)Ordered By: Donita Armstrong on 05-16-2023 WBC Auto (Urine sed) [#/Area] 1-2 [HPF] 0-4 [facility] Automated urine sediment nabila cium oxalate crystal count by microscopy (number/high powOrdered By: Donita Armstrong on 05-16-2023 Calcium oxalate crystals LM.HPF (Urine sed) [#/Area] 1+ [HPF] [facility] Bacterial blood cultureOrder ed By: Donita Armstrong on 05-16-2023 Bacteria identified Cx Nom (Bld) NO GROWTH 5 DAYS [facility] Bacteria identified Cx Nom (Bld) Staphylococcus sp coag neg [facility] Bilirubin Test strip Ql (U)O rdered By: Donita Armstrong on 05-16-2023 Bilirubin Ql (U) Negative Negative [facility] Color Auto (U)Ordered By: Joaquin Armstrong on 05-16-2023 Color (U) Yellow Yellow [facility] Creatine kinase [Enzymatic a ctivity/volume] in Serum or PlasmaOrdered By: Jamel Packer on 05-16-2023 CK [Catalytic activity/Vol] 175 U/L 30-223 [facility] Ketones Auto test strip (U) [Mass/Vol]Ordered By: Donita Armstrong on 05-16-2023 Ketones (U) [Mass/Vol] Negative Negative [facility] - UrinalysisOrder ed By: Donita Armstrong on 05-16-2023 Hyaline casts LM Ql (Urine sed) 9-19 [LPF] 0-8 [facility] Nitrite Test strip Ql (U)Ord ered By: Donita Armstrong on 05-16-2023 Nitrite Ql (U) Negative Negative [facility] No Panel InformationOrdered By: Suraj Razo on 05-16-2023 Bedside Glucose Comment Glu2: cleaned meter [facility] No Panel InformationOrdered By: Donita Armstrong on 05-16-2023 Bacterial ID (NA Multiplex Assay) [facility] Protein Auto test strip (U) [Mass/Vol]Ordered By: Donita Armstrong on 05-16-2023 Protein (U) [Mass/Vol] 30 mg/dL Negative Fi [facility] Specific gravity Auto test s trip (U) [Rel density]Ordered By: Donita Armstrong on 05-16-2023 Specific gravity (U) [Rel density] 1.026 1.001-1.03 0 [facility] Squamous epithelial cells de tection in urine sediment by light microscopyOrdered By: Donita Armstrong on 05-16-2023 Epithelial cells.squamous LM Ql (Urine sed) 0-1 [HPF] 0-2 [facility] Thyrotropin [Units/volume] i n Serum or PlasmaOrdered By: Donita Armstrong on 05-16-2023 TSH Qn 1.50 m[IU]/L 0.45-5.33 [facility] Troponin I.cardiac [Mass/vol ume] in Serum or Plasma by Detection limit <= 0.01 ng/Ordered By: Donita Armstrong on 05-16-2023 Troponin I.cardiac DL <= 0.01 ng/mL [Mass/Vol] 33.0 pg/mL 0.0-20.0 [facility] Urine bacteria detection by automated methodOrdered By: Donita Armstrong on 05-16-2023 Bacteria Auto Ql (U) None seen None Seen [facility] Urine clarity by refractomet ry automatedOrdered By: Donita Armstrong on 05-16-2023 Clarity Refractometry automated (U) Clear Clear [facility] Urine culture routineOrdered By: Donita Armstrong on 05-16-2023 Bacteria identified Cx Nom (U) No Growth 2 Days [facility] Urine glucose measurement by automated test strip (mass/volume)Ordered By: Donita Armstrong on 05-16-2023 Glucose Auto test strip (U) [Mass/Vol] Normal mg/dL Normal [facility] Urine hemoglobin detection b y automated test stripOrdered By: Donita Armstrong on 05-16-2023 Hemoglobin Auto test strip Ql (U) Negative Negative [facility] Urine leukocyte esterase det ection by automated test stripOrdered By: Donita Armstrong on 05-16-2023 Leukocyte esterase Auto test strip Ql (U) 1+ Negative [facility] Urobilinogen Auto test strip (U) [Mass/Vol]Ordered By: Donita Armstrong on 05-16-2023 Urobilinogen (U) [Mass/Vol] Normal mg/dL Normal [facility] Yeast detection in urine sed iment by light microscopyOrdered By: Donita Armstrong on 05-16-2023 Yeast LM Ql (Urine sed) None seen [HPF] None Seen [facility] pH Auto test strip (U)Ordere d By: Donita Armstrong on 05-16-2023 pH (U) 5.5 [pH] 5.0-9.0 [facility] - Chemistry and C hemistry - challengeOrdered By: Eliezer Newell on 05-15-2023 CO2 [Moles/Vol] 36.3 mmol/L 23.0-27.0 [facility] HCO3 (Bld) [Moles/Vol] 34.8 mmol/L 23.0-29.0 [facility] No Panel InformationOrdered By: Eliezer Newell on 05-15-2023 Arterial Blood Base Excess 9.2 mmol/L -3.0-3.0 [facility] Arterial Blood Oxygen Content 7.9 mmol/L 6.6-9.7 [facility] Arterial Blood Oxygen Saturation 92.2 % 95.0-100.0 [facility] Arterial Blood Partial Pressure CO2 50.8 mm[Hg] 35.0-45.0 [facility] Arterial Blood Partial Pressure O2 60.0 mm[Hg] 80.0-100.0 [facility] Arterial Blood pH 7.45 7.35-7.[address] [facility] Blood Gas Critical Value See comment [facility] Comment on above: Critical Value humphries d on: 05/15/2023 at 05:57 Blood Gas PEEP 5 cmH2O [facility] Blood Gas Sample Site Right radial F [facility] Blood Gas Set Respiration Rate 10 [facility] Blood Gas Tidal Volume 500 [facility] Ventilator Mode Ac [facility] FiO2 35 % [facility] Triglyceride [Mass/volume] i n Serum or PlasmaOrdered By: Lexy Chappell on 05-15-2023 Triglyceride [Mass/Vol] 224 mg/dL 35-149 [facility] Comment on above: TRIG ATP III CLASSIF ICATIONTRIG less than 150 mg/dL NormalTRIG 150-199 mg/dL Borderline highTRIG 200-500 mg/dL High TRIG greater than 500 mg/dL Very highStandard traceable to the Center for Disease Conrtrol and Prevention (CDC) test method. No Panel InformationOrdered By: Eliezer Newell on 05-13-2023 Arterial Blood pCO2 (Temp correct) 53.2 mm[Hg] 35.0-45.0 [facility] Arterial Blood pH (Temp corrected) 7.36 7.35-7.45 [facility] Arterial Blood pO2 (Temp corrected) 77.8 mm[Hg] 80.0-100.0 [facility] Aerobic cultureOrdered By: Valdemar Armstrong on 05-12-2023 Bacteria identified Aer cx Nom (Unsp spec) 2 Days [facility] Basophils/100 WBC Manual cnt (Bld)Ordered By: Stanley Burt on 05-12-2023 Basophils/100 WBC (Bld) 0 % 0-2 [facility] Eosinophils/100 WBC Manual c nt (Bld)Ordered By: Stanley Burt on 05-12-2023 Eosinophils/100 WBC (Bld) 6 % 1-3 [facility] Gram stain for investigation of transfusion reactionOrdered By: Donita Armstrong on 05-12-2023 Microscopic observation Gram stain Nom (Unsp spec) [facility] Haptoglobin [Mass/volume] in Serum or PlasmaOrdered By: Stanley Burt on 05-12-2023 Haptoglobin [Mass/Vol] 93 mg/dL 44-215 [facility] Comment on above: Hemolysis is present at a level that could interfere with the result. Lymphocytes/100 WBC Manual c nt (Bld)Ordered By: Stanley Burt on 05-12-2023 Lymphocytes/100 WBC (Bld) 5 % 18-42 [facility] Monocytes/100 WBC Manual cnt (Bld)Ordered By: Stanley Burt on 05-12-2023 Monocytes/100 WBC (Bld) 1 % 2-11 [facility] No Panel InformationOrdered By: Stanley Burt on 05-12-2023 Slides for Pathologist Review Ordered path review [facility] Platelet adequacy [Presence] in Blood by Light microscopyOrdered By: Stanley Burt on 05-12-2023 Platelets LM Ql (Bld) Decreased Normal [facility] Platelet morphology finding [Identifier] in BloodOrdered By: Stanley Burt on 05-12-2023 Platelet morphology finding Nom (Bld) Normal Normal [facility] Polychromasia [Presence] in Blood by Light microscopyOrdered By: Stanley Burt on 05-12-2023 Polychromasia LM Ql (Bld) Slight [facility] RBC morphologyOrdered By: Farhan Burt on 05-12-2023 RBC morphology finding Nom (Bld) N/A [facility] Segmented neutrophils/100 WB C Manual cnt (Bld)Ordered By: Stanley Burt on 05-12-2023 Segmented neutrophils/100 WBC (Bld) 88 % 50-70 [facility] Teardrop cell detectionOrder ed By: Stanley Burt on 05-12-2023 Dacrocytes LM Ql (Bld) Slight [facility] Alanine aminotransferase [En zymatic activity/volume] in Serum or PlasmaOrdered By: Jarret Garza on 05-11-2023 ALT [Catalytic activity/Vol] 23 U/L 7-52 [facility] Albumin [Mass/volume] in Ser um or Plasma by Bromocresol green (BCG) dye binding methoOrdered By: Jarret Garza on 05-11-2023 Albumin BCG dye [Mass/Vol] 3.1 g/dL 3.5-5.7 [facility] Alkaline phosphatase [Enzyma tic activity/volume] in Serum or PlasmaOrdered By: Jarret Garza on 05-11-2023 ALP [Catalytic activity/Vol] 55 U/L 34-104 [facility] Aspartate aminotransferase [ Enzymatic activity/volume] in Serum or PlasmaOrdered By: Jarret Garza on 05-11-2023 AST [Catalytic activity/Vol] 28 U/L 13-39 [facility] Bilirubin.total [Mass/volume ] in Serum or PlasmaOrdered By: Jarret Garza on 05-11-2023 Bilirubin [Mass/Vol] 0.9 mg/dL 0.3-1.0 [facility] Globulin Calc (S) [Mass/Vol] Ordered By: Jarret Garza on 05-11-2023 Globulin (S) [Mass/Vol] 2.7 g/dL [facility] INR in Platelet poor plasma by Coagulation assayOrdered By: Jarret Garza on 05-11-2023 INR Coag (PPP) [Relative time] 1.4 {INR} [facility] Comment on above: INR Therapeutic Rang [...] on 05-11-2023 Phosphate [Mass/Vol] 2.7 mg/dL 3.7-7.2 [facility] Protein [Mass/volume] in Ser um or PlasmaOrdered By: Jarret Garza on 05-11-2023 Protein [Mass/Vol] 5.8 g/dL 6.4-8.9 [facility] Prothrombin time (PT)Ordered By: Jarret Garza on 05-11-2023 PT Coag (PPP) [Time] 17.1 s 9.0-12.9 [facility] Comment on above: A hematocrit value g reater than 55% may lead to inaccurate results in coagulation testing. Patients having hematocrit values >55% require a special collection tube for coagulation studies. Please contact the laboratory at [phone] for redraw instructions. Serum or plasma albumin/glob ulin mass ratioOrdered By: Jarret Garza on 05-11-2023 Albumin/Globulin [Mass ratio] 1.1 {ratio} [facility] Basic Metabolic Panelon - Anion gap [Moles/Vol] 15 mmol/L 9 - 17 mmol/L [facility] Calcium [Mass/Vol] 8.3 mg/dL Low 8.6 - 10. 4 mg/dL [facility] Chloride [Moles/Vol] 102 mmol/L 98 - 10 7 mmol/L [facility] CO2 [Moles/Vol] 23 mmol/L 20 - 31 mmol/L [facility] Creatinine [Mass/Vol] 1.17 mg/dL 0.70 - 1.20 mg/dL [facility] GFR/1.73 sq M.predicted MDRD (S/P/Bld) [Vol rate/Area] - PINF [facility] Comment on above: These results are not [...] [Mass/Vol] 91 mg/dL 70 - 99 mg/dL [facility] Interpretation and review of laboratory results Abnormal [facility] Potassium [Moles/Vol] 3.2 mmol/L Low 3.7 - 5.3 mmol/L [facility] Sodium [Moles/Vol] 140 mmol/L 135 - 144 mmol/L [facility] Urea nitrogen [Mass/Vol] 17 mg/dL 8 - 23 mg/dL [facility] Basic Metabolic Profon 10-18 Anion gap [Moles/Vol] 15 mmol/L Normal 9-17 [facility] Comment on above: Performed By: #### M G, CBC, BMP #### [facility] [address] [place] [address] Asp Web Developer: Wenceslao Rose MD Calcium [Mass/Vol] 8.3 mg/dL Low 8.6-10.4 [facility] Comment on above: Performed By: #### M G, CBC, BMP #### [facility] [facility] [address] [place] [phone] Asp Web Developer: Wenceslao Rose MD Chloride [Moles/Vol] 102 mmol/L Normal 98-107 [facility] Comment on above: Performed By: #### M G, CBC, BMP #### [facility] [address] [place] [address] Asp Web Developer: Wenceslao Rose MD CO2 [Moles/Vol] 23 mmol/L Normal 20-31 [facility] Comment on above: Performed By: #### M G, CBC, BMP #### [facility] [address] [place] [address] Asp Web Developer: Wenceslao Rose MD Creatinine [Mass/Vol] 1.17 mg/dL Normal 0.70-1.20 [facility] Comment on above: Performed By: #### M G, CBC, BMP #### [address] [address] Asp Web Developer: Wenceslao Rose MD GFR/1.73 sq M.predicted among non-blacks MDRD (S/P/Bld) [Vol rate/Area] mL/min/{1.73_m2} Normal >60 [facility] Comment on above: Result Comment: These [...] By: #### M G, CBC, BMP #### [address] [address] Asp Web Developer: Wenceslao Rose MD Glucose [Mass/Vol] 91 mg/dL Normal 70-99 [facility] Comment on above: Performed By: #### Marcial Young, CBC, BMP #### [address] [address] Asp Web Developer: Wenceslao Rose MD Potassium [Moles/Vol] 3.2 mmol/L Low 3.7-5.3 [facility] Comment on above: Performed By: #### Marcial Young, CBC, BMP #### [address] [address] Asp Web Developer: Wenceslao Rose MD Sodium [Moles/Vol] 140 mmol/L Normal 135-144 [facility] Comment on above: Performed By: #### Marcial Young, CBC, BMP #### [facility] [address] [place] [address] Asp Web Developer: Wenceslao Rose MD Urea nitrogen [Mass/Vol] 17 mg/dL Normal 8-23 [facility] Comment on above: Performed By: #### Marcial Young, CBC, BMP #### [facility] [address] [place] [address] Asp Web Developer: Wenceslao Rose MD CBCon 10-18-2022 Erythrocyte distribution width (RBC) [Ratio] 21.9 % High 11.8-14.4 [facility] Comment on above: Performed By: #### Marcial Young, CBC, BMP #### [address] [address] Asp Web Developer: Wenceslao Rose MD Hematocrit (Bld) [Volume fraction] 35.2 % Low 40.7-50.3 [facility] Comment on above: Performed By: #### Marcial G, CBC, BMP #### [facility] [address] [place] [address] Asp Web Developer: Wenceslao Rose MD Hemoglobin (Bld) [Mass/Vol] 10.2 g/dL Low 13.0-17.0 [facility] Comment on above: Performed By: #### Marcial Young, CBC, BMP #### [address] [address] Asp Web Developer: Wenceslao Rose MD MCH (RBC) [Entitic mass] 22.3 pg Low 25.2-33.5 [facility] Comment on above: Performed By: #### M Hannah, CBC, BMP #### [address] [address] Asp Web Developer: Wenceslao Rose MD MCHC (RBC) [Mass/Vol] 29.0 g/dL Normal 28.4-34.8 [facility] Comment on above: Performed By: #### Marcial Young, CBC, BMP #### [address] [address] Asp Web Developer: Wenceslao Rose MD MCV (RBC) [Entitic vol] 76.9 fL Low 82.6-102.9 [facility] Comment on above: Performed By: #### Marcial Young, CBC, BMP #### [address] [address] Asp Web Developer: Wenceslao Rose MD NRBC Automated 0.0 per 100 WBC Normal 0.0 [facility] Comment on above: Performed By: #### Marcial Young, CBC, BMP #### [place] [address] Asp Web Developer: Wenceslao Rose MD Platelet mean volume (Bld) [Entitic vol] 10.1 fL Normal 8.1-13.5 [facility] Comment on above: Performed By: #### Marcial Young, CBC, BMP #### [address] [address] Asp Web Developer: Wenceslao Rose MD Platelets (Bld) [#/Vol] 198 10*3/uL Normal 138-453 [facility] Comment on above: Performed By: #### Marcial Young, CBC, BMP #### [facility] [address] [place], [place] [phone] Asp Web Developer: Wenceslao Rose MD RBC (Bld) [#/Vol] 4.58 10*6/uL Normal 4.21-5.77 [facility] Comment on above: Performed By: #### M G, CBC, BMP #### [employer] [address] [place], [place] [phone] Asp Web Developer: Wenceslao Rose MD WBC (Bld) [#/Vol] 6.2 10*3/uL Normal 3.5-11.3 [facility] Comment on above: Performed By: #### Marcial G, CBC, BMP #### [employer] [place], [place] [phone] Asp Web Developer: Wenceslao Rose MD Hematocrit (Bld) [Volume fraction] 35.2 % Low 40.7 - 50.3 % [facility] Hemoglobin (Bld) [Mass/Vol] 10.2 g/dL Low 13.0 - 17.0 g/dL [facility] Interpretation and review of laboratory results Abnormal [facility] MCH (RBC) [Entitic mass] 22.3 pg Low 25.2 - 33.5 pg [facility] MCHC (RBC) [Mass/Vol] 29.0 g/dL 28.4 - 34.8 g/dL [facility] MCV (RBC) [Entitic vol] 76.9 fL Low 82.6 - 102.9 fL [facility] NRBC Automated 0.0 0.0 per 100 WBC [facility] Platelet distribution width (Bld) [Ratio] 21.9 % High 11.8 - 14.4 % [facility] Platelet mean volume (Bld) [Entitic vol] 10.1 fL 8.1 - 13.5 fL [facility] Platelets (Bld) [#/Vol] 198 10*3/uL [facility] RBC (Bld) [#/Vol] 4.58 10*6/uL 4.21 - 5.77 m/uL [facility] WBC (Bld) [#/Vol] 6.2 10*3/uL [facility] Magnesiumon 10-18-2022 Magnesium [Mass/Vol] 2.0 mg/dL Normal 1.6-2.6 [facility] Comment on above: Performed By: #### M G, CBC, BMP #### [facility] [address] [phone] Asp Web Developer: Wenceslao Rose MD Magnesium [Mass/Vol] 2.0 mg/dL 1.6 - 2 .6 mg/dL [facility] Basic Metabolic Panelon 09-22 Anion gap [Moles/Vol] 15 mmol/L 9 - 17 mmol/L [facility] Calcium [Mass/Vol] 8.8 mg/dL 8.6 - 10. 4 mg/dL [facility] Chloride [Moles/Vol] 102 mmol/L 98 - 10 7 mmol/L [facility] CO2 [Moles/Vol] 22 mmol/L 20 - 31 mmol/L [facility] Creatinine [Mass/Vol] 1.09 mg/dL 0.70 - 1.20 mg/dL [facility] GFR/1.73 sq M.predicted MDRD (S/P/Bld) [Vol rate/Area] - PINF [facility] Comment on above: These results are not [...] [Mass/Vol] 98 mg/dL 70 - 99 mg/dL [facility] Interpretation and review of laboratory results Abnormal [facility] Potassium [Moles/Vol] 3.6 mmol/L Low 3.7 - 5.3 mmol/L [facility] Sodium [Moles/Vol] 139 mmol/L 135 - 144 mmol/L [facility] Urea nitrogen [Mass/Vol] 19 mg/dL 8 - 23 mg/dL [facility] Basic Metabolic Profon 10-17 Anion gap [Moles/Vol] 15 mmol/L Normal 9-17 [facility] Comment on above: Performed By: #### B MP, CBC #### [email or web address] [address] [place] [address] Asp Web Developer: Wenceslao Rose MD Calcium [Mass/Vol] 8.8 mg/dL Normal 8.6-10.4 [facility] Comment on above: Performed By: #### B MP, CBC #### [facility] [address] [place] [address] Asp Web Developer: Wenceslao Rose MD Chloride [Moles/Vol] 102 mmol/L Normal 98-107 [facility] Comment on above: Performed By: #### B MP, CBC #### [facility] [address] [place] [address] Asp Web Developer: Wenceslao Rose MD CO2 [Moles/Vol] 22 mmol/L Normal 20-31 [facility] Comment on above: Performed By: #### B MP, CBC #### [facility] [address] [place] [address] Asp Web Developer: Wenceslao Rose MD Creatinine [Mass/Vol] 1.09 mg/dL Normal 0.70-1.20 [facility] Comment on above: Performed By: #### B MP, CBC #### [facility] [address] [place] [address] Asp Web Developer: Wenceslao Rose MD GFR/1.73 sq M.predicted among non-blacks MDRD (S/P/Bld) [Vol rate/Area] mL/min/{1.73_m2} Normal >60 [facility] Comment on above: Result Comment: These [...] Performed By: #### B MP, CBC #### [facility] [address] [place] [address] Asp Web Developer: Wenceslao Rose MD Glucose [Mass/Vol] 98 mg/dL Normal 70-99 [facility] Comment on above: Performed By: #### B MP, CBC #### [facility] [address] [place] [address] Asp Web Developer: Wenceslao Rose MD Potassium [Moles/Vol] 3.6 mmol/L Low 3.7-5.3 [facility] Comment on above: Performed By: #### B MP, CBC #### [facility] [address] [place] [address] Asp Web Developer: Wenceslao Rose MD Sodium [Moles/Vol] 139 mmol/L Normal 135-144 [facility] Comment on above: Performed By: #### B MP, CBC #### [email or web address] [address] [place] [address] Asp Web Developer: Wenceslao Rose MD Urea nitrogen [Mass/Vol] 19 mg/dL Normal 8-23 [facility] Comment on above: Performed By: #### B MP, CBC #### [facility] [address] [place] [address] Asp Web Developer: Wenceslao Rose MD [facility] Erythrocyte distribution width (RBC) [Ratio] 22.3 % High 11.8-14.4 [facility] Comment on above: Performed By: #### B MP, CBC #### [email or web address] [address] [place] [address] Asp Web Developer: Wenceslao Rose MD Hematocrit (Bld) [Volume fraction] 36.9 % Low 40.7-50.3 [facility] Comment on above: Performed By: #### B MP, CBC #### [address] [address] Asp Web Developer: Wenceslao Rose MD Hemoglobin (Bld) [Mass/Vol] 10.5 g/dL Low 13.0-17.0 [facility] Comment on above: Performed By: #### B MP, CBC #### [address] [address] Asp Web Developer: Wenceslao Rose MD MCH (RBC) [Entitic mass] 22.2 pg Low 25.2-33.5 [facility] Comment on above: Performed By: #### B MP, CBC #### [address] [address] Asp Web Developer: Wenceslao Rose MD MCHC (RBC) [Mass/Vol] 28.5 g/dL Normal 28.4-34.8 [facility] Comment on above: Performed By: #### B MP, CBC #### [address] [address] Asp Web Developer: Wenceslao Rose MD MCV (RBC) [Entitic vol] 78.0 fL Low 82.6-102.9 [facility] Comment on above: Performed By: #### B MP, CBC #### [address] [address] Asp Web Developer: Wenceslao Rose MD NRBC Automated 0.0 per 100 WBC Normal 0.0 [facility] Comment on above: Performed By: #### B MP, CBC #### [address] [address] Asp Web Developer: Wenceslao Rose MD Platelet mean volume (Bld) [Entitic vol] 10.3 fL Normal 8.1-13.5 [facility] Comment on above: Performed By: #### B MP, CBC #### [facility] [place] [address] Asp Web Developer: Wenceslao Rose MD Platelets (Bld) [#/Vol] 185 10*3/uL Normal 138-453 [facility] Comment on above: Performed By: #### B MP, CBC #### [facility] [place] [address] Asp Web Developer: Wenceslao Rose MD RBC (Bld) [#/Vol] 4.73 10*6/uL Normal 4.21-5.77 [facility] Comment on above: Performed By: #### B MP, CBC #### [facility] [address] [place] [address] [phone] Asp Web Developer: Wenceslao Rose MD WBC (Bld) [#/Vol] 6.6 10*3/uL Normal 3.5-11.3 [facility] Comment on above: Performed By: #### B MP, CBC #### [facility] [address] [place] [address] Asp Web Developer: Wenceslao Rose MD Hematocrit (Bld) [Volume fraction] 36.9 % Low 40.7 - 50.3 % [facility] Hemoglobin (Bld) [Mass/Vol] 10.5 g/dL Low 13.0 - 17.0 g/dL [facility] Interpretation and review of laboratory results Abnormal [facility] MCH (RBC) [Entitic mass] 22.2 pg Low 25.2 - 33.5 pg [facility] MCHC (RBC) [Mass/Vol] 28.5 g/dL 28.4 - 34.8 g/dL [facility] MCV (RBC) [Entitic vol] 78.0 fL Low 82.6 - 102.9 fL [facility] NRBC Automated 0.0 0.0 per 100 WBC [facility] Platelet distribution width (Bld) [Ratio] 22.3 % High 11.8 - 14.4 % [facility] Platelet mean volume (Bld) [Entitic vol] 10.3 fL 8.1 - 13.5 fL [facility] Platelets (Bld) [#/Vol] 185 10*3/uL [facility] RBC (Bld) [#/Vol] 4.73 10*6/uL 4.21 - 5.77 m/uL [facility] WBC (Bld) [#/Vol] 6.6 10*3/uL [facility] Cult,Urineon 10-17-2022 Cult,Urine Specimen Description .CLEAN CATCH URINE Culture NO GROWTH Report Status FINAL 10/17/2022 Normal [facility] Comment on above: Performed By: #### U RC #### [employer] [address] [place], [place] [phone] Asp Web Developer: Wenceslao Rose MD Culture, Urineon 10-17-2022 Microorganism identified Cx Nom (Unsp spec) NO GROWTH [facility] Specimen Description .CLEAN CATCH URINE [facility] Basic Metab w/rfx MGon 10-16 Anion gap [Moles/Vol] 11 mmol/L Normal 9-17 [facility] Comment on above: Performed By: #### P RCAL, BMPX, CRP, PT #### [employer] [address] [place], [place] [phone] Asp Web Developer: Wenceslao Rose MD Calcium [Mass/Vol] 8.1 mg/dL Low 8.6-10.4 [facility] Comment on above: Performed By: #### P RCAL, BMPX, CRP, PT #### [employer] [address] [place] [address] [phone] Asp Web Developer: Wenceslao Rose MD Chloride [Moles/Vol] 104 mmol/L Normal 98-107 [facility] Comment on above: Performed By: #### P RCAL, BMPX, CRP, PT #### [facility] [place] [address] Asp Web Developer: Wenceslao Rose MD CO2 [Moles/Vol] 23 mmol/L Normal 20-31 [facility] Comment on above: Performed By: #### P RCAL, BMPX, CRP, PT #### [facility] [address] [place] [address] Asp Web Developer: Wenceslao Rose MD Creatinine [Mass/Vol] 1.13 mg/dL Normal 0.70-1.20 [facility] Comment on above: Performed By: #### P RCAL, BMPX, CRP, PT #### [address] [address] Asp Web Developer: Wenceslao Rose MD GFR/1.73 sq M.predicted among non-blacks MDRD (S/P/Bld) [Vol rate/Area] mL/min/{1.73_m2} Normal >60 [facility] Comment on above: Result Comment: These [...] RCAL, BMPX, CRP, PT #### [facility] [address] [place] [address] Asp Web Developer: Wenceslao Rose MD Glucose [Mass/Vol] 95 mg/dL Normal 70-99 [facility] Comment on above: Performed By: #### P RCAL, BMPX, CRP, PT #### [facility] [address] [place] [address] Asp Web Developer: Wenceslao Rose MD Potassium [Moles/Vol] 3.6 mmol/L Low 3.7-5.3 [facility] Comment on above: Performed By: #### P RCAL, BMPX, CRP, PT #### [facility] [address] [place], [place] [phone] Asp Web Developer: Wenceslao Rose MD Sodium [Moles/Vol] 138 mmol/L Normal 135-144 [facility] Comment on above: Performed By: #### P RCAL, BMPX, CRP, PT #### [facility] [address] [place], [place] [phone] Asp Web Developer: Wenceslao Rose MD Urea nitrogen [Mass/Vol] 16 mg/dL Normal 8-23 [facility] Comment on above: Performed By: #### P RCAL, BMPX, CRP, PT #### [facility] [address] [place], [place] [phone] Asp Web Developer: Wenceslao Rose MD Basic Metabolic Panel w/ Ref mitchel to MGon 10-16-2022 Anion gap [Moles/Vol] 11 mmol/L 9 - 17 mmol/L [facility] [employer] Calcium [Mass/Vol] 8.1 mg/dL Low 8.6 - 10. 4 mg/dL [facility] Chloride [Moles/Vol] 104 mmol/L 98 - 10 7 mmol/L [facility] [employer] CO2 [Moles/Vol] 23 mmol/L 20 - 31 mmol/L [facility] [employer] Creatinine [Mass/Vol] 1.13 mg/dL 0.70 - 1.20 mg/dL [facility] GFR/1.73 sq M.predicted MDRD (S/P/Bld) [Vol rate/Area] - PINF [facility] Comment on above: These results are not [...] [Mass/Vol] 95 mg/dL 70 - 99 mg/dL [facility] Interpretation and review of laboratory results Abnormal [facility] Potassium [Moles/Vol] 3.6 mmol/L Low 3.7 - 5.3 mmol/L [facility] Sodium [Moles/Vol] 138 mmol/L 135 - 144 mmol/L [facility] Urea nitrogen [Mass/Vol] 16 mg/dL 8 - 23 mg/dL [facility] C-Reactive Proteinon 023 CRP [Mass/Vol] 86.3 mg/L High 0.0-5.0 [facility] Comment on above: Performed By: #### M G, CBC, BMP #### [facility] [address] [phone] Asp Web Developer: Wenceslao Rose MD CRP High sensitivity method [Mass/Vol] 86.3 mg/L High 0.0 - 5.0 mg/L [facility] Interpretation and review of laboratory results Abnormal [facility] CBC with Auto Differentialon 10-16-2022 Absolute Eos # 0.13 [facility] Absolute Immature Granulocyte 0.00 [facility] Absolute Lymph # 0.82 Low [facility] Absolute [place] # 0.88 High [facility] Basophils (Bld) [#/Vol] 0.00 10*3/uL [facility] Basophils/100 WBC (Bld) 0 % 0 - 2 % [facility] Eosinophils/100 WBC (Bld) 2 % 1 - 4 % [facility] Hematocrit (Bld) [Volume fraction] 33.5 % Low 40.7 - 50.3 % [facility] Hemoglobin (Bld) [Mass/Vol] 10.2 g/dL Low 13.0 - 17.0 g/dL [facility] Immature granulocytes/100 WBC (Bld) 0 % 0 [facility] Interpretation and review of laboratory results Abnormal [facility] Lymphocytes/100 WBC (Bld) 13 % Low 24 - 44 % [facility] MCH (RBC) [Entitic mass] 22.5 pg Low 25.2 - 33.5 pg [facility] MCHC (RBC) [Mass/Vol] 30.4 g/dL 28.4 - 34.8 g/dL [facility] MCV (RBC) [Entitic vol] 73.8 fL Low 82.6 - 102.9 fL [facility] Monocytes/100 WBC (Bld) 14 % High 1 - 7 % [facility] Morphology Ck (Bld) [Interp] ANISOCYTOSIS PRESENT [facility] Morphology Ck (Bld) [Interp] MICROCYTOSIS PRESENT [facility] NRBC Automated 0.0 0.0 per 100 WBC [facility] Platelet distribution width (Bld) [Ratio] 22.2 % High 11.8 - 14.4 % [facility] Platelets (Bld) [#/Vol] See Reflexed IPF Result [facility] RBC (Bld) [#/Vol] 4.54 10*6/uL 4.21 - 5.77 m/uL [facility] Segmented neutrophils/100 WBC (Bld) 71 % High 36 - 66 % [facility] Segs Absolute 4.47 [facility] WBC (Bld) [#/Vol] 6.3 10*3/uL [facility] CBC with Diffon 10-16-2022 Abs. Basophil 0.00 k/uL Normal 0.0-0.2 [facility] Comment on above: Performed By: #### C DP, IPF #### [employer] [address] [place], [place] [phone] Asp Web Developer: Wenceslao Rose MD Abs.Imm.Granulocyte 0.00 k/uL Normal 0.00-0.30 [facility] Comment on above: Performed By: #### C DP, IPF #### [employer] [address] [place], [place] [phone] Asp Web Developer: Wenceslao Rose MD Abs.Neutrophil (Seg) 4.47 k/uL Normal 1.8-7.7 [facility] Comment on above: Performed By: #### C DP, IPF #### [facility] [address] [place] [address] Asp Web Developer: Wenceslao Rose MD Basophils/100 WBC (Bld) 0 % Normal 0-2 [facility] Comment on above: Performed By: #### C DP, IPF #### [facility] [address] [place] [address] Asp Web Developer: Wenceslao Rose MD Eosinophils (Bld) [#/Vol] 0.13 10*3/uL Normal 0.0-0.4 [facility] Comment on above: Performed By: #### C DP, IPF #### [address] [address] [employer] Web Developer: Wenceslao Rose MD Eosinophils/100 WBC (Bld) 2 % Normal 1-4 [facility] Comment on above: Performed By: #### C DP, IPF #### [address] [address] [employer] Web Developer: Wenceslao Rose MD Immature granulocytes/100 WBC (Bld) 0 % Normal 0 [facility] Comment on above: Performed By: #### C DP, IPF #### [address] [address] [employer] Web Developer: Wenceslao Rose MD Lymphocytes (Bld) [#/Vol] 0.82 10*3/uL Low 1.0-4.8 [facility] Comment on above: Performed By: #### C DP, IPF #### [facility] [address] [place] [address] Asp Web Developer: Wenceslao Rose MD Lymphocytes/100 WBC (Bld) 13 % Low 24-44 [facility] Comment on above: Performed By: #### C DP, IPF #### [address] [address] [employer] Web Developer: Wenceslao Rose MD Monocytes (Bld) [#/Vol] 0.88 10*3/uL High 0.1-0.8 [facility] Comment on above: Performed By: #### C DP, IPF #### [address] [address] [employer] Web Developer: Wenceslao Rose MD Monocytes/100 WBC (Bld) 14 % High 1-7 [facility] Comment on above: Performed By: #### C DP, IPF #### [address] [address] [employer] Web Developer: Wenceslao oRse MD Morphology Ck (Bld) [Interp] ANISOCYTOSIS PRESENT Normal [facility] Comment on above: Result Comment: MICR OCYTOSIS PRESENT Performed By: #### C DP, IPF #### [address] [address] [employer] Web Developer: Wenceslao Rose MD Neutrophil (Seg) 71 % High 36-66 [facility] Comment on above: Performed By: #### C DP, IPF #### [address] [address] [employer] Developer: Wenceslao Rose MD Erythrocyte distribution width (RBC) [Ratio] 22.2 % High 11.8-14.4 [facility] Comment on above: Performed By: #### C DP, IPF #### [address] [address] [employer] Web Developer: Wenceslao Rose MD Hematocrit (Bld) [Volume fraction] 33.5 % Low 40.7-50.3 [facility] Comment on above: Performed By: #### C DP, IPF #### [address] [address] [employer] Developer: Wenceslao Rose MD Hemoglobin (Bld) [Mass/Vol] 10.2 g/dL Low 13.0-17.0 [facility] Comment on above: Performed By: #### C DP, IPF #### [address] [address] [employer] Web Developer: Wenceslao Rose MD MCH (RBC) [Entitic mass] 22.5 pg Low 25.2-33.5 [facility] Comment on above: Performed By: #### C DP, IPF #### [address] [address] [employer] Web Developer: Wenceslao Rose MD MCHC (RBC) [Mass/Vol] 30.4 g/dL Normal 28.4-34.8 [facility] Comment on above: Performed By: #### C DP, IPF #### [address] [address] Asp Web Developer: Wenceslao Rose MD MCV (RBC) [Entitic vol] 73.8 fL Low 82.6-102.9 [facility] Comment on above: Performed By: #### C DP, IPF #### [address] [address] Asp Web Developer: Wenceslao Rose MD NRBC Automated 0.0 per 100 WBC Normal 0.0 [facility] Comment on above: Performed By: #### C DP, IPF #### [place] [address] Asp Web Developer: Wenceslao Rose MD Platelet Count See Reflexed IPF Result Normal 138-453 [facility] Comment on above: Performed By: #### C DP, IPF #### [place] [address] Asp Web Developer: Wenceslao Rose MD RBC (Bld) [#/Vol] 4.54 10*6/uL Normal 4.21-5.77 [facility] Comment on above: Performed By: #### C DP, IPF #### [address], [place] [phone] Asp Web Developer: Wenceslao Rose MD WBC (Bld) [#/Vol] 6.3 10*3/uL Normal 3.5-11.3 [facility] Comment on above: Performed By: #### C DP, IPF #### [employer] [address] [place] [address] [phone] Asp Web Developer: Wenceslao Rose MD Immature Platelet Fractionon 10-16-2022 Platelet, Fluorescence 154 WILL N [facility] [employer] Comment on above: ORDERED BY LAB Platelet, Immature Fraction 5.3 % 1.1 - 10.3 % [facility] [employer] Comment on above: ORDERED BY LAB [facility] [employer] Microscopic Urinalysison Casts UA 5 TO 10 HYALINE Refe rence range defined for non-centrifuged specimen. [facility] [employer] Epithelial Cells UA 2 TO 5 [facility] Mod[employer] RBC clumps Auto (Urine sed) [#/Area] TOO NUMEROUS TO COUNT [facility] Comment on above: Reference range defi radha for non-centrifuged specimen. WBC, UA 50 TO 100 [facility] [employer] PLT, Immature Fract.on 10-16 Platelet, Fluoresc. 154 k/uL Normal 138-453 [facility] Comment on above: Result Comment: ORDE RED BY LAB Performed By: #### C DP, IPF #### [employer] [address] [place] [address] Asp Web Developer: Wenceslao Rose MD PLT, Immature Fract. 5.3 % Normal 1.1-10.3 [facility] Comment on above: Result Comment: ORDE RED BY LAB Performed By: #### C DP, IPF #### [employer] [address] [place] [address] [phone] Asp Web Developer: Wenceslao Rose MD PTon 10-16-2022 INR Coag (PPP) [Relative time] 1.2 {INR} Normal [facility] Comment on above: Result Comment: Therapeutic Range: Moderate Anticoagulant Intensity: INR = 2.0-3.0 High Anticoagulant Intensity: INR = 2.5-3.5 Performed By: #### P RCAL, BMPX, CRP, PT #### [employer] [address] [place], [place] [phone] Asp Web Developer: Wenceslao Rose MD PT Coag (PPP) [Time] 12.4 s High 9.1-12.3 [facility] Comment on above: Performed By: #### P RCAL, BMPX, CRP, PT #### [employer] [address] [place], [place] [phone] Asp Web Developer: Wenceslao Rose MD Procalcitoninon 10-16-2022 Procalcitonin 0.20 ng/mL High <0.09 [facility] Comment on above: Result Comment: Suspected [...] entered into the Change in Procalcitonin Calculator (www.vnosdy-mfk-zmgkpobzxd.com) to determine the patient's Mortality Risk Prognosis In healthy neonates, plasma Procalcitonin (PCT) concentrations increase gradually after , reaching peak values at about 24 hours of age then decrease to normal values below 0.5 ng/mL by 48-72 hours of age. Performed By: #### M G, CBC, BMP #### [employer] [address] [place], [place] [phone] Asp Web Developer: Wenceslao Rose MD Interpretation and review of laboratory results Abnormal [facility] Procalcitonin [Mass/Vol] 0.2 ng/mL High NINF - 0.09 ng/mL [facility] Comment on above: Suspected Sepsis: <0.50 ng/mL [...] entered into the Change in Procalcitonin Calculator (www.hqgalw-jdj-kgnbszdnxn.KeepGo) to determine the patient's Mortality Risk Prognosis In healthy neonates, plasma Procalcitonin (PCT) concentrations increase gradually after , reaching peak values at about 24 hours of age then decrease to normal values below 0.5 ng/mL by 48-72 hours of age. [facility] Protime-INRon 10-16-2022 INR Coag (PPP) [Relative time] 1.2 {INR} [facility] Comment on above: Therapeutic Range: Moderate Anticoagulant Intensity: INR = 2.0-3.0 High Anticoagulant Intensity: INR = 2.5-3.5 Interpretation and review of laboratory results Abnormal [facility] PT Coag (PPP) [Time] 12.4 s High [facility] UA w/Reflex Cultureon 2022 Bilirubin, SemiQt,Ur Negative Normal NEG [facility] Comment on above: Performed By: #### M G, CBC, BMP #### [employer] [address] [place] [address] Asp Web Developer: Wenceslao Rose MD Blood, Urine LARGE Abnormal NEG [facility] Comment on above: Performed By: #### M G, CBC, BMP #### [employer] [address] [place] [address] [phone] Asp Web Developer: Wenceslao Rose MD Clarity (U) Cloudy Abnormal CLEAR [facility] Comment on above: Performed By: #### M G, CBC, BMP #### [facility] [address] [place] [address] Asp Web Developer: Wenceslao Rose MD Color (U) Yellow Normal YEL [facility] Comment on above: Performed By: #### M G, CBC, BMP #### [facility] [address] [place] [address] [employer] Web Developer: Wenceslao Rose MD Glucose Ql (U) Negative Normal NEG [facility] Comment on above: Performed By: #### M G, CBC, BMP #### [facility] [address] [place] [address] Asp Web Developer: Wenceslao Rose MD Ketones Ql (U) MODERATE Abnormal NEG [facility] Comment on above: Performed By: #### M G, CBC, BMP #### [facility] [address] [place] [address] Asp Web Developer: Wenceslao Rose MD Leukocyte esterase Test strip Ql (U) SMALL Abnormal NEG [facility] Comment on above: Performed By: #### M G, CBC, BMP #### [facility] [address] [place] [address] Asp Web Developer: Wenceslao Rose MD Nitrite,Ur Negative Normal NEG [facility] Comment on above: Performed By: #### M G, CBC, BMP #### [facility] [address] [place] [address] Asp Web Developer: Wenceslao Rose MD PH,Ur 5.5 Normal 5.0-8.0 [facility] Comment on above: Performed By: #### M G, CBC, BMP #### [facility] [address] [place] [address] Asp Web Developer: Wenceslao Rose MD Protein Ql (U) 2+ Abnormal NEG [facility] Comment on above: Performed By: #### M G, CBC, BMP #### [employer] [address] [place], [place] [phone] Asp Web Developer: Wenceslao Rose MD Spec. [place],Ur 1.023 Normal 1.005-1.03 0 [facility] Comment on above: Performed By: #### M G, CBC, BMP #### [facility] [address] [place], [place] [phone] Asp Web Developer: Wenceslao Rose MD Urobilinogen,Ur Normal Normal NORM [facility] Comment on above: Performed By: #### M G, CBC, BMP #### [employer] [address] [place], [place] [phone] Asp Web Developer: Wenceslao Rose MD Urinalysis with Reflex to Cu ltureon 10-16-2022 Bilirubin Urine Negative NEGATIVE [facility] [employer] [facility] Color, UA Yellow Yellow [facility] [employer] Glucose Auto test strip (U) [Mass/Vol] Negative NEGATIVE [facility] [employer] Interpretation and review of laboratory results Abnormal [facility] Ketones (U) [Mass/Vol] MODERATE Abnormal NEGATIVE [facility] Leukocyte esterase Auto test strip Ql (U) SMALL Abnormal NEGATIVE [facility] Nitrite Auto test strip Ql (U) Negative NEGATIVE [facility] Protein (U) [Mass/Vol] 5.5 mg/dL 5.0 - 8.0 WILL N SECP[employer] [facility] Protein (U) [Mass/Vol] 2+ Abnormal NEGATIVE WILL N SECP[employer] [facility]ENTERProm[facility] Specific [place], UA 1.023 1.005 - 1.030 [facility] SEC[facility] Turbidity UA Cloudy Abnormal Clear [facility] SEC[facility] Urine Hgb LARGE Abnormal NEGATIVE [facility] SEC[facility]ALTHCAR[facility] Urobilinogen, Urine Normal Normal [facility] AVON[facility] Security [facility] Urinalysis,Microon 3 Casts 5 TO 10 HYALINE Normal 0-8 [facility] Comment on above: Result Comment: Refe rence range defined for non-centrifuged specimen. Performed By: #### M G, CBC, BMP #### [employer] [address] [place] [address] Asp Web Developer: Wenceslao Rose MD Epithelial cells LM Ql (Urine sed) 2 TO 5 Normal 0-5 [facility] Comment on above: Performed By: #### M G, CBC, BMP #### [email or web address] [address] [place] [address] Asp Web Developer: Wenceslao Rose MD Urine RBC's TOO NUMEROUS TO COUNT Normal 0-4 [facility] Comment on above: Result Comment: Refe rence range defined for non-centrifuged specimen. Performed By: #### M G, CBC, BMP #### [employer] [address] [place] [address] Asp Web Developer: Wenceslao Rose MD Urine WBC's 50 TO 100 Normal 0-5 [facility] Comment on above: Performed By: #### M G, CBC, BMP #### [employer] [address] [place] [address] Asp Web Developer: Wenceslao Rose MD Tobacco Screening.on 023 Adult depression screening assessment No [facility] [employer] [place] [address] DO Work Phone: Fall risk assessment a) No falls within the last year [facility] [employer] [place] [address] DO Work Phone: Tobacco use status CPHS b) No [facility] [employer] [place] [address] DO Work Phone: Tumor Staging Formon 022 Tumor Staging Form [id number]:127 Normal [facility] URINALYSIS, REFLEX MICROSCOP ICon 05-06-2022 Bilirubin Ql (U) Negative Negative [facility] Clarity (Unsp spec) Turbid Abnormal Clear [facility] Color (U) Red Abnormal Yellow [facility] Glucose Test strip (U) [Mass/Vol] Negative Negative [facility] Hemoglobin Ql (U) 3+ Abnormal Negative [facility] Ketones Ql (U) Negative Negative [facility] Leukocyte esterase Test strip Ql (U) 75 Danilo/mL Abnormal Negative [facility] Nitrite Ql (U) Negative Negative [facility] pH (U) 7.0 [pH] 5.0 - 8.0 [facility] Protein (U) [Mass/Vol] 1+ Abnormal Negative Cl [facility] RBC LM.HPF (Urine sed) [#/Area] /[HPF] Abnormal 0-3 /HPF [facility] Specific gravity (U) [Rel density] 1.008 1.005 - 1.030 [facility] Urobilinogen Ql (U) Negative Negative [facility] WBC LM.HPF (Urine sed) [#/Area] 11-25 /HPF Abnormal 0-5 /HPF [facility] Screenson 03-30-2022 Screens [id number]:127 Normal [facility] Ambulatory Visit Summaryon 0 03-29-2022 Ambulatory Visit [...] CT Where: [facility] [address], [place] [address] [phone] Medications What How Much When Instructions Unchanged [...] adult Pulmonary embolism Radiculopathy Urge incontinence Normal [facility] Patient Educationon 03-29-20 Patient Education Oncology Transurethral [...] including vitamins, herbs, eye drops, creams, and ezrz-agy-qwvqdsg medicines. ? Any problems you or family [...] tells you to take them. ? Taking mzcq-bzn-ztasdyl medicines, vitamins, herbs, and supplements. Tests You [...] walk around (more content not included)... Normal [facility] Urology Office/Clinic Noteon 03-29-2022 Urology Office/Clinic Note [...] We will (more content not included)... Normal [facility] Comment on above: Result Comment: Elec tronically [...] Impaired glucose tolerance test / SNOMED CT 870556768 / Confirmed BPH (benign prostatic hyperplasia) / SNOMED CT 268639717 / Confirmed Calcaneal spur / SNOMED CT 86325338 / Confirmed Gross hematuria / SNOMED CT 436227950 / Confirmed Hypercholesteremia / SNOMED CT 19982246 / Confirmed Hypertension / SNOMED CT 6500002772 / Confirmed Lumbosacral spondylosis without myelopathy / SNOMED CT 38842403 / Confirmed Macular edema / SNOMED CT 65345934 / Confirmed Bladder mass / SNOMED CT 2402343293 / Confirmed Myasthenia gravis / SNOMED CT 011415858 / Confirmed Radiculopathy / SNOMED CT 525259662 / Confirmed Obesity / SNOMED CT 2484788475 / Confirmed Obstructive sleep apnea, adult / SNOMED CT 2925363321 / Confirmed Obstructive apnea / SNOMED CT 200376657 / Confirmed Pulmonary embolism / SNOMED CT 96608135 / Confirmed Histories Past Medical History: No active or resolved past medical history items have been selected or recorded. Family History: Cancer Mother Heart disease Father Procedure history: Cystoscopy and transurethral resection of bladder ([id number]) on 03/03/2022 at 76 Years. Cystoscopy ([id number]) on 12/27/2021 at 76 Years. Transurethral water vapor ablation of prostate ([id number]) on 02/16/2017 at 71 Years. CE - Cataract extraction ([id number]). Cardiac catheterization ([id number]). Neck Surgery ([id number]). Comments: 02/17/2022 14:13 EDT - Davina ROMERO, [...] results Radiology results ECG interpretation Condition Plan [place] [employer] (ASA) physical status classification: Class III. Anesthetic Preoperative Plan Anesthesia: General. . Anesthetic plan, risks, benefits, and alternatives discussed with the patient and/or family. Risks discussed: nausea, vomiting, headache, sore throat, dental injury, serious complications. Patient verbalized understanding. Communication: face to face with (patient 5 minutes, Pt educated on the importance of smoking cessation.). [facility] Comment on above: Result Comment: Elec tronically Signed By: Jhonny Fuentes Jr, DO\cosme\Date and Time Signed: 03/23/22 12:18 EDT Coding Summary.on 03-14-2022 Coding Summary. [id number] Gh0bWw +PGhlYWQ+XZ1PMQXfC03gtCCoj Q1JS4lHXC6WIWSXXHWYTF3NUR5 paFM4KHurY1PbkbCq LnfczXMhLW00OWr0KGI9lXyaPO naoJ8afNQrU0e6KdQfZE32cD85 YBgeGQAgXlX7WgXmagontOQw G1ajCjFawQRsEos+PHRhYmxlIH uvUBCbPLvgQVAhWcDmfUbyDR1u Yh1tHVCbUHBdoZsmiQEvMhQf p1qvCUNvUZiuDF3kmKnwJ9YunZ W8VCFdh0t3Et40zWE+PHRkIHN0 tVvhWZxgq146DbXac9tuDHQ0 aJKlONgxLWX3O31oi5S3QUOuYR HeIQD7pKB2pB6yhKapumncB6Sr qDBmJdT8WTL8vOTxxP4kvZdd iuhnoO7kDkt+M40QVK3KPJOXOD 5VLry6G8BhQhtkeQK+RF42OFRz FV52fHFuhKZrp1qktKr1ZkZa PKGkKQC2tZjeFVapk1TpLUKdK4 8kiKEyr5E3LKBfrCuioUJrYuTi yXZ7tS1sHXeatwdki8rotvpp Oailt3zfvh16bL26C18hZYynFA DjDDD7AFRjAQRkcKqcha7klA9r Ii8+LHolo8mkq4flwSr3NpFu RYHzzuQjgTkqGWW9e4HvSb81C1 IyiLgek2LeNvs3qf93iPFmk3S9 yYK9IEoyYVBtlI3wCMkoJxJ8 RPJzCuBueF65bFAlMAhxDs4yzF swyBkwTM8vMMAekwrmNIZveK2z OAAzzLHihJfwHR8zXIIdvfwr w342ZvRxHGY0RYDlwFGiM9DgbI 2fJaAzOSKiGPSpG2FkrECuRLnw O709HFjlOwF6DYOuzwTuR4Hc UWRjqBtyBdP9m7A8Hk4Go7Qmng xdPMD5JNpuMES3AmJ6WiOxXfB1 T4OvKrn6NPWigTpbYQ9tF7Bl YQGauywohqkacSK7SAMdSZMeyE 62xKQlGFsePn6zb0O1d206ONKp KGDvkB85Vq3ekMtjKIFfkFXS zO9lhewvk0hivwnxPbOzTIBmVH v6DAy4GOZtqUfpVpKaUYV6CqV5 JNM2pAEgaY5auZuojqvuvM7e Oyc+R42bpI6aEZV7PIO1qiqkOA CmvpSzJQ18NN30M0HbZjfitWGf bGU+RJJsudVfhYxzYW7gGuBu o2eym1AwNEjnD9GhBTQbOEeeJj h8TQTmVXY4lIH2nN6kQRExWXbu j8E7oAF3V9DjvpHnsm7fj6ue BHTdLLnzB83cwGTyd1S1NXAymM X4WPDpmNobIrKbtD52Grs+PGNv rGjmf8GzCgnnw9sxr5bdeRw0 TuHzEALqqyXdhRioHZG0b4WgCa 52Y34rDPgfTGJyFAXhLKExZOVw cGizos9pvK3cCf5+PGNvbCB3 hHA9rS3bSKMkYnQ5ARocG886Qp ShbWDbDjhfx0mlw8dcsXh6GkMp UJSlchHqkAdtDBN4x3RiCd58 C16vKCifAZHfUJAqXTEqDBBdoT tzna1tnG8mWr2+CD9zm5zwzy77 uU23iRI+OREcONI9lGalMQny KTPcuJ5jJEgmElY6UHYdYkTkcV 87vXNhIVtwJj8ahZttsCnxZB6q XQRflhrbu758YwBuf0nnKLLx nTIiOHreQZL9I56fv5F2ZMJjSG QvSPQ6xCW2yH7hpXakafbzzBFr cYxjumGqbTqhAGhkMWvtQ380 IHRvcDsnPlBhdGllbnQgTmFtZT l0S2PfJtp8WVYazMbbTW5zwBEr EYumKm7stCwqyWbjPI1tFJYg vgzft184ItWxq3dfIEArxGAtEH ebESM5J34tc7S5UTXzRAGnITC2 cQN7dZ7zaAzcryyawWJarTuu xlEdmCgeTOzcGUpdP208BQOetA fdIgHdctHyQAPiuPV7YE87YQ32 wSKil5Z2nJH9C8IaQWAnciij jfecjZI2GEQvNVZdcX05Im1xnL hlEl2jJKRtJDI9MJMwfYSnV7Xp gB6uWfYhXMWiSXRfB5PiqGVb WKvjJ151PGhoJpF2FFSnviRzE7 TjNYZfnSfdVvU1d9F8Yj2FE8D5 EP79ND96eWZbx2Y5rWQ8O7Kl MVBfovctpdxbtOU9MLCuDDJtiU 47Ll7xdCwtUk6rPFKtJUO9PGSo sCKhT9PqpG4sMdEhWOXvLGQf S6ZrgRRuTUpkX325XBjrFxV2DR EahiGpO4GjLLUsnEtyWxT5d2E9 Iu3CURx0HF39YH90sULui0G4 pJR0W4LxQPJimqnmtotmbIO4WO JhLEMdiK39Ms5rrWemMp8cTUTu WNW4WLDflOScD2GmvM8jGgEr XQHzJSFeH7SvxUXjMIbsR402AX mxAtI8BOCujcBaC8FaOSYplPrr QnV5o2Q3Xy8QTQGcVK99IGA0 lOK8UM68JD39I1AcCqhqsBUbqD U+PHRhYmxlIHdpZHRoPScxMDAl XvTrhKftOC1nNp0vHDVaOAZs cLcirRTwMtRdo7mlNABaBKznNP 4shEotJ3AreQG2CCFih4a6Zm75 S71qA5NabJB+XKZwcRY6kCH7 aA2iIuAxPmE5APxrD880BxYyvM XvSzxcm9ijy0vhuKr4RdD3SJVc ekDkpJkwYZY8z8WcQh16Y92w IHdpZHRoPSIxNSUiIHZhbGlnbj 0sfI0gWa8+UGHaoMO5aSV7pE6h GdXwJrC1HYjzL738LiDipBBf Mslmn4bjb0kcxSy4VkSoVBGxfl AstUzsGBM5g7YaIf91S9UxwMho a7YyVih2ry47aXIta3E2gBS0 G0EhEBLeufikxLRxmNdeGA1oPE WnazgcWLVvkS5iQEGgI4d7ItPw ZfI0IKpuA5WspvZ4XXNhuWWk GTboFHI4R98ey7L3JAQuNHIxOG D3oST5nN5xxFxnefloyKStjQwk vnKbhUpcZAibJQerU038SCGm xJicBPQkcE8iPFXmiBXiqXnyZU 7rSSIyfqorUkCMK93ZFizmQ7fW EtmXEaMTZZ24TA79fESjp1M0 bCE9C9XsQUTrbtyijciihAD1XS VbOCHmeH59qSBoGNjdDx4cl4O8 k569VUEkWMNdaH15Po7ajZja RSSmqPYMcX3ykzipd0izvfbvRp TkSPAlPFk4VWa3UYSfwSsbPqEf WYL8AvQ4VUZ9oLHosC3txHvg hjkcoI3nWkz+YZLyLMNzYSm9XR wvdGQ+BOGpHNP8gCfvZBygLPRn qU8dGIUpK8m1GgMgHjQ5HUhi K1CgKBRkrywhBs49xZ8cGgNaUl A3POmrF0JjbhM4RTIcrJUzAJze XDK2J54vj5R3GCJoLXJvTFZ0 rNS9tS0trDpehtqjeHQqmMcuzm UfaZdkSXgcELksC792RZUpaEke Tay5BCibKQNdAG22QX83kYSm k2Q0mIO0T7BtISIkmqwajejqoW T2YVVcFRAezB63aYLyJCseEu0i h6J0g818BUBhSBJooP45Lo2s lKagEJHktBJRcS5vwyhrz6faub drShIhOLYcKLn1YOe9QLPefMny IwMmGRE4EbX5NOP1lGObuD9o rCaatexkyE2gAzm+TWFsZTwvdG Q+OMYpRNJ7gHsaEFscMQTetF2r TRGnS6y3VzBbRpO6AKodK1Lz EZMhtxduUb84nM8xGmHeQiD3GY cbW8WwnkA7NHYueIUjNAxuKII9 O14oy1H9SHLuDSMnELY0xEX7 cE9fzBavxgrakITsaLlicvFffZ fbZWmqODemY065XIGqwZqzVqZt SaIxEUZdruzoO6AnKNGUYTlt B9CeE5YcnPvcrNU+ZY73zk85Q0 AzFceuFpy3OSQoVZQ0nBR5wB9r TFIqUDpby6I6sEK3O0JymeKn th2uf1mlWUYvDAfzF87ayLEqj4 N8LQOmlDX9EWUlgHkcHzWsrG32 Oyc+APPegCapl0LnQkegb9gy g4ghcHi8KrDlYBDdxtHhpSeoGU H5a9IrBm36T36oMChmPUNeQCHj ZFEjYDImaLmgak2jzJ3oZx9+ CPAjgQJ9lUR0gV2bLcNtKtB4TH hsB444ZkApqJLiHirqu3sci4pg eFj8BmLtQNKwwzKppFjiYWL8 n8WaWv08N2EurEruu7HiSfe6ig 44lBOhh9D9lJV5F6NzHUQwacfe dCQrgYevAA6qCTZqanqtMJYb jH5tAPMeP9z2DmEzVcM7MNhpJ2 TpynA9PZZpdBZtPVJsfUZToK6j nhxlj5nxaavrXoNyZROaWJy7 GCj1TIXipNyfYkTtOGY2XbM7WL T5bYJirY1omVkuxmfhdS3qLxn+ FHr0w0wrlSMmPK0bjIO9NW78 AW13uHDum1X7pIQ7D6UvFPJjsd rzibybtIE3PWFhTMBtoE08Js7f oHiwTa3uZCMbFEU2HABnsREu Z4FzrD2nIiKnKRYnYXKcR7YpcE HhXJgkC311MTauXjK0PZPbioCe X7EmRWHatXymOzW6g4T1Ul2K DU97XX56QY77mKYpn8S0wAO1O3 EvEXUycfimgeebpUI4DZTrDRAt yA27Wx1wyRdgVs3mXLBuWTG1 WGHztTJtU8XcsH5wKuFsMNNcCR GtG7ScvWIyQWccM003GOitUpP9 TJZzfzDkN9KyMVUurGywUkU8 j8S2Sh1XBg33HI30BI98xQVfs7 S4bAY4U8AzPEKksfymzmkhkHV0 DRDcEBIuuX54Ar1ydFxbJv5v XUJhTEN1AMGaiPNoT1FepN8xTc FtFYUzOGOzL4YwiHOrLYxoL378 SUfaMqH6BFKmygSgB2TcJERp lAqfGnE7j1J5Bb4BNLjjmlr8O2 RkPjwvdHI+TU27QIYqZR18nYYa hRXdg3kbiTt0RiCiBUBtQXX9 eWxl (more content not included)... Normal [facility] Progress Note-Physicianon Progress Note-Physician Patient: TAURUS GARCIA Age: 76 years Sex: Male : 1945 Associated Diagnoses: None Author: Jhonny Fuentes Jr, DO Postoperative Information Post Operative Note: Post Anesthesia Care Unit. Anesthetic utilized: General. Health Status Allergies: Allergic Reactions (Selected) No Known Medication Allergies Problem list: All Problems Impaired glucose tolerance test / SNOMED CT 126930142 / Confirmed BPH (benign prostatic hyperplasia) / SNOMED CT 522760722 / Confirmed Calcaneal spur / SNOMED CT 97326432 / Confirmed Gross hematuria / SNOMED CT 402168762 / Confirmed Hypercholesteremia / SNOMED CT 54901467 / Confirmed Hypertension / SNOMED CT 5868790124 / Confirmed Lumbosacral spondylosis without myelopathy / SNOMED CT 68612361 / Confirmed Macular edema / SNOMED CT 96147145 / Confirmed Bladder mass / SNOMED CT 8777219611 / Confirmed Myasthenia gravis / SNOMED CT 488669397 / Confirmed Radiculopathy / SNOMED CT 795282703 / Confirmed Obesity / SNOMED CT 8085889830 / Confirmed Obstructive sleep apnea, adult / SNOMED CT 7943527225 / Confirmed Obstructive apnea / SNOMED CT 521818431 / Confirmed Pulmonary embolism / SNOMED CT 60970515 / Confirmed Physical Examination Vital Signs 03/03/2022 [...] Pressure 104 mmH (more content not included)... [facility] Comment on above: Result Comment: Elec tronically Signed By: Jhonny Fuentes Jr, DO\.br\Date and Time Signed: 03/14/22 08:36 EDT H&P Updateon 03-10-2022 H&P Update [id number]#1.00CD:127 [facility] H&P Update [id number]#1.00CD:127 [facility] Outside Recordson 03-10-2022 Outside Records [id number]#1.00CD:127 [facility] Postoperative Documentson Postoperative Documents [id number]#1.00CD:127 [facility] Coding Queryon 03-07-2022 Coding Query - From: Analisa Salazar To: Autumn Molina MD, Yoko Hair; Sent: 03/07/2022 13:03:40 EDT ! Subject: Coding Query Dr Leyva, Please document the size of the bladder tumor- -Less than 0.5 cm -0.5 up to 2.0cm -2.0 to 5.0 cm -Larger than 5.0 cm Thank you, Kimberlee HIM Coding [facility] IntraOperative Documentson 0 03-07-2022 IntraOperative Documents [id number]#1.00CD:127 [facility] Consent for Anesthesiaon Consent for Anesthesia [id number]#1.00CD:127 [facility] Discharge Instructionson Discharge Instructions [id number]#1.00CD:127 [facility] IntraOperative Documentson 0 03-04-2022 IntraOperative Documents [id number]#1.00CD:127 [facility] IntraOperative Documents [id number]#1.00CD:127 [facility] Main OR Intraoperative Recor don 03-04-2022 Main OR Intraoperative Record IntraOp Document Type FT Summary Primary Physician: Yoko Leyva Jr., MD Finalized Date/Time: 03/04/22 12:28:36 Pt. Name: TAURUS GARCIA/Sex: 1945 Male Med Rec #: [id number] Physician: Yoko Leyva Jr., MD Financial #: [id number] Pt. Type: A Room/Bed: AS11/19 Admit/Disch: 03/03/22 [...] Zuleyma Alfonso Role Performed Surgeon - Primary Per Diem Physical Therapist Assistant - Primary Per Diem Physical Therapist Assistant - Primary Time In 03/03/22 09:59:00 03/03/22 09:59:00 03/03/22 09:59:00 Time Out 03/03/22 11:23:00 03/03/22 11:23:00 03/03/22 11:23:00 Procedure CYSTOSCOPY TURB(.) CYSTOSCOPY TURB(.) CYSTOSCOPY TURB(.) Comments precepting orienting Last Modified By: Zuleyma Martinez Leanne M Pierson, Leanne M 03/03/22 12:03:26 03/03/22 11:39:52 03/03/22 11:39:52 Entry 4 Entry 5 Entry 6 Case Attendee Masha Cedeño SEPARATOR OPERATOR [employer], Lydia Rios CAA, Jessica Ceja Role Performed Scrub - Primary Scrub - Primary Anesthesiologist Pediatric Critical Care Nurse Time In 03/03/22 09:59:00 03/03/22 09:59:00 03/03/22 09:59:00 Time Out 03/03/22 11:23:00 03/03/22 11:23:00 03/03/22 11:23:00 Procedure CYSTOSCOPY TURB(.) CYSTOSCOPY TURB(.) CYSTOSCOPY TURB(.) Comments precepting orienting 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 Yes Last Modified By: Zuleyma Martinez 03/03/22 10:42:49 Post-Care Text: The patient is free from signs and symptoms of injury caused by extraneous objects Patient Positioning FT Pre-Care Text: Identifies physical alterations that require additional precautions for procedure-specific positioning, verifies presence of p (more content not included)... Normal [facility] Main OR PACU I Recordon 02-18 Main OR PACU I Record PACU Phase I Docum ent Type FT Summary Primary Physician: Yoko Leyva Jr., MD Finalized Date/Time: 03/04/22 07:47:44 Pt. Name: TAURUS GARCIA Carrie SoodB./Sex: 1945 Male Med Rec #: [id number] Physician: Yoko Leyva Jr., MD Financial #: [id number] Pt. Type: A Room/Bed: [place] [address] Admit/Disch: 03/03/22 07:42:53 - 03/03/22 13:20:00 Institution: [...] 15:56 Lucy Ohara RN 03/04/22 07:47 Normal [facility] Preoperative Documentson Preoperative Documents [id number]#1.00CD:127 [facility] Preoperative Documents [id number]#1.00CD:127 Normal [facility] Consent for Procedure/Surger yon 03-03-2022 Consent for Procedure/Surgery [id number]#1.00CD:127 [facility] Consent for Treatmenton 02-18 Consent for Treatment [id number]#1.00CD:127 [facility] Inpatient Patient Summaryon 03-03-2022 Inpatient Patient Summary [place] [id number] [facility] Clinical Discharge Instructions PERSON INFORMATION Name: TAURUS GARCIA [facility]#:[id number] PHYSICIANS Admitting Physician: Yoko Leyva Jr., MD Attending Physician: Yoko Leyva Jr., MD PCP: KOMAL SCHAFFER MD Discharge Diagnosis: Malignant neoplasm of overlapping sites of bladder Comment: PATIENT EDUCATION INFORMATION Instructions: Post Op Patient Instructions - FT (CUSTOM) Medication Leaflets: Follow up: With: Address: When: Yoko Leyva [facility], [address], [place] [address] [place] (1) Within 2 to 4 weeks Comments: Reviewed pathology report and plan exudative treatment. Call for any problems. Call for followup appointment MEDICATION LIST New Medications [facility], [address] [place], [place] [id number], [phone] cephalexin (Keflex 500 mg Cap) 1 Capsules [...] times a day., Myasthenia Gravis Comment: Normal [facility] Main OR Preoperative Recordo n 03-03-2022 Main OR Preoperative Record PreOp Document Type FT Summary Primary Physician: Yoko Leyva Jr., MD Finalized Date/Time: 03/03/22 12:14:22 Pt. Name: TAURUS GARCIA Carrie /Sex: 1945 Male Med Rec #: [id number] Physician: Yoko Leyva Jr., MD Financial #: [id number] Pt. Type: Room/Bed: [place] [address] Admit/Disch: 03/03/22 07:42:53 - Institution: Case Times [...] Signatures Signed By: Zuleyma Martinez 03/03/22 12:14 [facility] Operative Reporton Operative Report Patient: MARGRET GARCIA Age: 76 years Sex: Male : 1945 Associated Diagnoses: None Author: Yoko Leyva Jr., MD Postoperative Information Procedure: Cystoscopy with transurethral resection of bladder tumor, instillation of Mitomycin-C Date/ Time: 03/03/2022 11:30:00 Preoperative Diagnosis: Malignant neoplasm of overlapping sites of bladder (LLE16-HI C67.8, Discharge, Medical). Postoperative Diagnosis: Malignant neoplasm of overlapping sites of bladder (NMW90-NI C67.8, Discharge, Medical). Performed by: Autumn Molina [...] and there was no bleeding a 16 Ugand[place] Smith cath was introduced. 40 mg of [...] . Specimens Removed: Bladder tumor. Prosthesis: 16 Ug[place] Smith catheter. . Estimated Blood Loss: 5 ml. Medications: Mitomycin-C 40 mg intravesical instillation. Complications: None. Anesthesia type: General. Normal [facility] Comment on above: Result Comment: Elec tronically Signed By: Autumn Molina MD, Yoko Hair\.br\Date and Time Signed: 03/03/22 11:36 EDT Outpatient Surgery Discharge Instructionon 03-03-2022 Outpatient Surgery Discharge Instruction [place] [address] Patient Discharge Instructions PERSON INFORMATION Name: TAURUS [...] [facility], [address] [place] [address] Business (1) Within 2 to 4 weeks Comments: Reviewed pathology report and plan exudative treatment. Call for any problems. Call for followup appointment Pharmacy Information: You may receive a survey from [employer] asking you to rate your care experience. Your feedback is important and will help us understand what we do well and how we can improve the quality of care we provide to you, your loved ones and our community. It?s an honor to serve you. Thank you for choosing [facility] HERE ARE THE MEDICATION CHANGES THAT OCCURRED DURING YOUR HOSPITAL STAY New Medications [facility], [address] [place], [place] [id number], [phone] cephalexin (Keflex 500 mg Cap) 1 Capsules [...] Gravis PATIENT EDUCATION INFORMATION Instructions: Medication Leaflets: [facility] Patient Education - Texton 0 03-03-2022 Patient Education - Text [facility] Outside Recordson 03-01-2022 Outside Records [id number]#1.00CD:127 [facility] Formson 02-28-2022 Forms [id number]#1.00CD:127 [facility] Coding Summary.on 02-24-2022 Coding Summary. CD:[id number] Gh0bWw +PGhlYWQ+TG4AZCFcT42edLIbq E1WM7rMUY1PRQTAQRCCNZ0SPO5 nlVW3DYljF6TnniXv HfpyjUTbXA78FYd5KRV3gJbfKG mztF2olDQjK6z0BsZpDP69lS79 KPwkAEYaTrP1RwLmxzijzHWb L5yiRmMiyOWgWnu+PHRhYmxlIH jhXZWeUWocQTTcYeBtpIutGC6o Oj2aTCGzZEXxrEkjkYYpEuBe f6ixNKPtQOneTT9zzAnmZ1GxpG J6TPOqf1w9Ds87bZQ+PHRkIHN0 cLghZZlao666UsHkh5ptTYT7 mIYwWFvoSKD0D60kc2P6QARpKN OpYZO0lNV8uN4cpGesungdK7Gb bQApJrZ8TXY9lICdpA5asYrk qwiqfL6bSfs+U01TZA2PRURGAA 8SDwn4S3KrRvhwkBH+OX94DLEf SJ64wCMpqBUep7fkmTy3QzGh WEPvIBC2iJgmVJkwi0BmOLOcY4 7gqXWby9O1KIRxmLaaxFPaSpIy kAT8aU7wIVpmgwvap2gjqjod Tcwjt9unor76rV54O94jNXchQB JcSYS9MOVzEKSmlZpcdz2woY9y Ii8+ZMxhs8upj7gutQn2KzOv AQZcxmZqfMqnHFJ4o5RkKo43E8 UzlTcoo5HaNmi2gj26qAJri0L1 wXJ0TYasZFBddV6aYSviEaS0 OTPoGlXbwL90uKOeHGadIz3nuY yaeUtiFT4bYWHsvtcqVMGsxS8w SXOobPEssEptLZ1yNGYngmbq y879CgQnGWC6NGXjsAPuM9ClpN 5kWvSpRXGmEWJxJ4ItfXRnXHur T908KVeaFwP5DTVumoYyM4Pr FBTlpPewPtB6g9O1Lb9Pr6Rbre zxUGI8LJnjMNC5HiK5BxHdLiH2 U3DoMyw4WPYawNgwKF6vA1Pj UAEmppqwzzirgBV7UBPjHATosV 59tNMeTIpmHz6wt7F7y961XJUg FAFdzM15Rb5iyRmoPADfhTQC uB3xostwb4umdivtZbDeTDZeIU a1HJn4KTRehHqlVcQlCTV2DuH7 VWB7vEYosW7qeSgxqnupnE2z Oyc+Y69vkJ6tFNJ8PKB0aijkMV KytkVdSA08PK58R7YeCuoelBIz bGU+RGYjcsHvfXlhBX7nOgMm u8bgt3VrYNwtM6ZzOSQcTZwlSo l7HWOdCHH1wQD2cD5xFADuZHaa c7K7uTD2B2QssvPrhe1yr4td MXRlGSpuW89ssRWes7Q3TXJmyU N2HLWnyVvkZfXktK81Sbi+PGNv lCnbs6MhSxgco6tte5qznXq8 HoNqNLMakwLxmZlqMPS6o9SaKw 53D19rKDxnSPVuEWKjSNMzWQIo eVijds9mqA6aVl1+PGNvbCB3 tDL5jG6oZYJgHhH8IQlrL663Fv UegKLyBhmsf5qlq5dirDs0GnAo WRCvbiVzmVonOUW9g3WtWx69 J37hXOvwQHJkIOEtQFWiKNNtyD wngz2mfB1nLc0+LL6ax6phxi00 eO22hBH+SNHrHXH5qRngDKwt STRkzO1xESkfBtF1IDHiEvYvxC 98wPSlMJorXk1ojUnxrYadEX8n JTRersrnu533MeIqk0bsDOKh mDPzFMlrJWJ6W06cu1W5VHHqUU PyTLY9vWU0vU3mcKjzqrmmuDDe oFnvczJwoCbgNSqcDWhjW428 IHRvcDsnPlBhdGllbnQgTmFtZT l9H8IiBuh1ADFteIbhNP5jlQRd UBbxTc2opItauPpaVX6lPAWy kcbyl537GpJjf4ieVLVmfNAqCS akWUP0A78gk5D9YHElEIVnYQL4 rJH5fK1sdErgnxtznDJqcUuy duCjbTgaUVsfJZcyR943TYSflK kgWdRgrhSdYJOjyYZ2GS74TN13 iMCzv8T2iUS4K1IoHJYmkzlu xszfxXQ6RGCpSVCznW57Jq5qmP faUc8lDOVuLSC0BOOmqYDiQ9Sc rD9eUdSjXZLvUGYmH0BorVBf KPiuG683LEphSzJ3SKUumaEbY4 ZaXQZxjOiqJpC6a9G3Lw5EW4L0 NC07ID78pRWeo1J3uDO6A7Xe AXAlssjbkudpnCV8TIVaOPVopL 68Ea6zsEyqGo2wMTUdBOH5ESUt zVLdS7GpeV5dRxTfFRNaXINj P8ClcKKuGPmsD716YFajAcQ7MU FpsfGyI1KgZRToqQizNzN6n3J4 Rp8DPOc2DR49OD63rPZcg7H6 yIN3V6QnJQZidfmfoxptgLX4LV OrAHUmeV71Gy7ejKqzPt5vLQYj BTQ9HIFecAXtN8CdmC4sWiYc OEXmLCMbL6YivTCvTFpgX770MN kzIaL0FKLmxiUkN3EhEUIauJev HxG2f6L5Ab7ZDPWyAL87TLW0 iTO2VQ51DK00Z0IuHvjcmZQqtF U+PHRhYmxlIHdpZHRoPScxMDAl VkHjpIwvJG6oOg2mSXZvPLBy jPuvwRHjUqBaj0xdDIAbSMpkEE 1ugPnaP7QpfWD7CDHoc6g1De23 E39iY6NzoXZ+UVQkyDN5xBX6 dJ3qWfAjQvO2YJvrM075UxYqrW ZjFaybp5yoy4lpuTe7VuL2TVMk wuNmcApjWKE1j9TkEp75P98e IHdpZHRoPSIxNSUiIHZhbGlnbj 5jnN9vYs1+GTBcqED8rRT7aO2d WqWcGkJ2EHqoQ802GbFxjCYd Qffpf6jer4xutYh9UaVjICScti VfyFoqUFW9n0QkUg57T2EhiUwc h5ChAbz4ua83kQZgy2M5yAX3 L3JyIIDfsexdxMPngNysXC9dBD DntrkcUSGniN4jNRItM1m0CcMu XfN9OAsfT8VfgrW0JCAckCOz HQtiSUK3V50uo4M3GYBiHNVzZR K6vHM4dP6qlRezrnkjdXZwnRgl otQkfEskUVgmFNwtN983VDJy dRoiMXUbpL7oHMQckPUnoQtuMV 1pSUNfjafbBaPUN51EKswlV4sL CdrMIrJUGU54DD06kDScr0A0 vUY3A2BhJEKjebshntqbyJM8LS AoURWktT19nPGcMOhuJd7mp6E2 n655TOVySOTesL72Vv6qwFis VKIhrIKYwP9aahgns6iswzdgLm MeJDUlHNe1XJf5SKBkyIqbDkZa SQW8VaQ6PVE6dMPxoG4cgRlf yyfbmD6rWyi+RQOeRWBbITc2PT wvdGQ+BTSdJMU3mZurSXfiZVCc vI3tWHLqD3c2AoIuEdN2NCst Z0BfKHEkhrfkYr94rL8pShNjCu H4RWwyL7AyiyK3IUAunRZvCOxo CDF2A30zm7G5TKPwXVXjDNC0 uRJ2oC1aiCnvubnsiTCvsZdjra ChpXwdFIlaRSbeL786LTQzxYva Ayx2HUflUSYnWE10DE15vVIo x8H9qLP9N1PoIMBipunmeckypU L1FOVcDBPjdB70rSVqKEvcUb3p w1W2q441FCAeIEJqqH34Ik8r nLgeWPOjcLBTgE0xadzme8gogo ckTbTvNLUyPWj5GIr0AQWnpQxp IzBbXKB5VyN6XTI6xNJqoA3n jRmdlmabvY4aJmp+TWFsZTwvdG Q+VESbPGH3ePkdYFpcUZSieK6h ASFzY6q7CaBbVkY3NZfmK1Fy RWDjyitvWx26sB2vNvRzDaI4AN ejP9FvcpR2MEBbzOGaJUobXBC7 G40ve8A6FKOfAXIxKCQ7gKJ3 sN0nhUqmwkxveKZwaMduisUsnM skFOmcGWzeE527TDUpgQucXb87 wUKyzPcdqwR2M8ZjNpwwiAP+ IN51LPPpEP72rNFpgWWlv0lysY i4XlBsPBYqNPI4tXxwVWeys7Rz PTGvL13skQGvp7T9UEEaeAzs lIAvSgJnrDH2zW7sPLbwkyktj6 rhxlzeVewmo6ytae15oN41O26y IHdpZHRoPSIzMCUiIHZhbGln tf4ivK2zWs5+LJBiqWO8gTZ5hT 2uRnJaBdV1DMbkD629TmTvsOXa Upinf8tuz5igmKa0ZyKvEEOi imMsoWikDWA7e9JaLr81L35mGQ yzKBJoRECgETQfORHrfPgrag6s wL0vFl5+CS5us4nfqk37bE91 dHI+MGKpCMM3cFtgKSxqTVOngI 1qMDeuZvY3DCPcPgZukB44nRPg GIopLk1yiAeftJzsUY8pOCMu qrwqp664MhYqb8sqKRTvkZJxEP lbFFK4K10od4H6BMQjZVHhECE8 wNB1aK1pxSwcpirziNFnvOmo qhUhtArbHGrbUWetC558OBDfrP lpMsXwyEHsY8axedZUIB2bTkhk dGQ+QGNzNSE2mOkvXXtdLZMv iN5pABTzT2b3EdNrXoL1YLzyN7 BsxiE3IUPrlEKwMSQxfBDJgN6s awgwb1dqqkojWcWfFBCyMNi0 RKb1JNLrmYrpVxJjAER1UiI0JJ Y8uZXvrN3quMtawcqyhL1jXkx+ RklOOjwvdGQ+HZIeVFM3cEye NTcuJDKgfM2uWCTbJ4y5AwMvLw R5NDrcR0IdhvK0PVBffORdBVFg fXJCaU5wbzizy5yxqxvxAoNp UYSlCLc2ETe1AWSqsRetPkFeHJ V6YgD9EEH1gVOwsY2epPzviebr kM6tWdj+TVJOOjwvdGQ+PHRk UPD0mDzkTBiqCQVneG3gTQFiC7 l1MuTnBgC1MQwaO2HyvhX2TRCn fDOiBZYfxSMJiE3ytmgma5le wsvrRoQaBSHlSSv2YYr3KXAsxO trBwIrAWH2DfC5GZH4cCVacE1z fGkpkdzmbK1kUdc+HZB4HFF2 AE86UN78M0ZmAoxrpYWhuQL+PH RhYmxlIHdpZHRoPScxMDAlJyBz hHcvRQ0kYn6hIKUyJEFezJlr cHNl (more content not included)... Normal [facility] Outside Recordson 02-22-2022 Outside Records [id number]#1.00CD:127 Normal [facility] Outside Records [id number]#1.00CD:127 Normal [facility] Outside Records [id number]#1.00CD:127 Normal [facility] C Urineon 02-19-2022 Bacteria identified Cx Nom [...] Locations R1: This test was performed at: [facility], [address] [place] [address], [address] [place] [address], [facility] Comment on above: Performed By: #### 1 [id number], [id number] #### [facility] [address] [place] [address] XR Chest 2 Viewson XR Chest 2 [...] Hassan M.D. Transcribed by: SANDY Technologist: PABLO [facility] Auto Diffon 02-17-2022 Basophils/100 WBC (Bld) 0.6 % Normal 0.0-2.0 [facility] Comment on above: Order Comment: Order Added by Discern Expert. Performed By: #### 2 602356, 3406457, 92029828, 08188706, 7718850 ####[facility] [address] [place] [address] Basophils/Leukocytes Auto (Bld) [Pure # fraction] 0.0 E9/L Normal 0.0-0.2 [facility] Comment on above: Order Comment: Order Added by Discern Expert. Performed By: #### 2 445661, 9734477, 83516306, 45877464, 5961765 ####[address] [address] Eosinophils/100 WBC (Bld) 0.2 % Normal 0.0-8.0 [facility] Comment on above: Order Comment: Order Added by Mary Expert. Performed By: #### 2 197459, 3970435, 28891993, 38293024, 9422039 ####[facility] [address] [place] [address] Eosinophils/Leukocytes Auto (Bld) [Pure # fraction] 0.0 E9/L Normal 0.0-0.5 [facility] Comment on above: Order Comment: Order Added by Mary Expert. Performed By: #### 2 004868, 9385709, 37226260, 98808363, 2505896 ####[address] [address] Lymphocytes/100 WBC (Bld) 9.6 % Low 14.0-50.0 [facility] Comment on above: Order Comment: Order Added by Discern Expert. Performed By: #### 2 087730, 4395629, 30667735, 57638103, 5521499 ####[facility] [address] [place] [address] Lymphocytes/Leukocytes Auto (Bld) [Pure # fraction] 0.7 E9/L Low 1.0-4.0 [facility] Comment on above: Order Comment: Order Added by Discern Expert. Performed By: #### 2 309956, 3670737, 31367353, 61262901, 2034382 ####[place] [address] [place] [address] Monocytes/100 WBC (Bld) 7.0 % Normal 4.0-14.0 [facility] Comment on above: Order Comment: Order Added by Discern Expert. Performed By: #### 2 644016, 3059757, 20665012, 68883873, 5406420 ####[facility] [address] [place] [address] Monocytes/Leukocytes Auto (Bld) [Pure # fraction] 0.5 E9/L Normal 0.2-1.0 [facility] Comment on above: Order Comment: Order Added by Mary Expert. Performed By: #### 2 162898, 7857533, 61588100, 92186060, 5272736 ####[address] [address] Neutrophils/100 WBC (Bld) 82.6 % High 36.0-75.0 [facility] Comment on above: Order Comment: Order Added by Mary Expert. Performed By: #### 2 840918, 9125830, 50474652, 34761054, 3140778 ####[place] [address] [place] [address] Neutrophils/Leukocytes Auto (Bld) [Pure # fraction] 6.3 E9/L Normal 2.0-7.5 [facility] Comment on above: Order Comment: Order Added by Discern Expert. Performed By: #### 2 104168, 7829584, 36056944, 64827957, 7538648 ####[place] [address] [place] [address] BMPon 02-17-2022 Anion gap [Moles/Vol] 11 mmol/L Normal 6-16 [facility] Comment on above: Performed By: #### 2 388571, 8187354, 52709713, 35080126, 3313854 ####[facility] [address] [place] [address] Calcium [Mass/Vol] 9.3 mg/dL Normal 8.9-11.1 [facility] Comment on above: Performed By: #### 2 889053, 6498589, 33464010, 64421268, 9133817 ####[facility] [address] [place] [address] Chloride [Moles/Vol] 104 mmol/L Normal 101-111 [facility] Comment on above: Performed By: #### 2 400113, 9669349, 81296383, 18146503, 9476342 ####[facility] [address] [facility] [address] CO2 [Moles/Vol] 27 mmol/L Normal 21-31 [facility] Comment on above: Performed By: #### 2 021593, 1887937, 37488713, 45221540, 7677726 ####[facility] [address] [place] [address] Creatinine [Mass/Vol] 1.4 mg/dL High 0.5-1.3 [facility] Comment on above: Performed By: #### 2 304877, 8792573, 30031048, 53349759, 7226514 ####[facility] [address] [place] [address] Glucose [Mass/Vol] 144 mg/dL Normal 55-199 [facility] Comment on above: Result Comment: If t his glucose result represents a fasting glucose, interpretation should refer to the following reference range: 55-99 mg/dL Performed By: #### 2 026778, 7036154, 27185290, 38344235, 0000686 ####[facility] [address] [address] Potassium [Moles/Vol] 3.4 mmol/L Low 3.5-5.3 [facility] Comment on above: Performed By: #### 2 276674, 7491651, 97835801, 59298574, 0260777 ####[facility] [address] [place] [address] Sodium [Moles/Vol] 139 mmol/L Normal 135-145 [facility] Comment on above: Performed By: #### 2 666251, 4681264, 38588749, 14272302, 2310171 ####[facility] [address] [place] [address] Urea nitrogen [Mass/Vol] 24 mg/dL High 5-21 [facility] Comment on above: Performed By: #### 2 958099, 6628173, 48167228, 03698598, 6850555 ####[facility] [address] [place] [address] Urea nitrogen/Creatinine [Mass ratio] 17 No Units Normal 10-20 [facility] Comment on above: Performed By: #### 2 086928, 3305932, 90825194, 00439234, 9840217 ####[facility] [address] [place] [address] CBC w/ Auto Diffon Erythrocyte distribution width (RBC) [Ratio] 15.2 % High 10.9-14.2 [facility] Comment on above: Performed By: #### 2 644797, 4119772, 16866021, 10539963, 9003361 ####[place] [address] [place] [address] Hematocrit (Bld) [Volume fraction] 35.8 % Low 37.7-49.0 [facility] Comment on above: Performed By: #### 2 161859, 5070445, 13249125, 37194507, 1799643 ####[facility] [address] [place] [address] Hemoglobin (Bld) [Mass/Vol] 11.7 g/dL Low 13.5-17.5 [facility] Comment on above: Performed By: #### 2 980877, 4119944, 77382780, 87925087, 4579546 ####[facility] [address] [place] [address] MCH (RBC) [Entitic mass] 29.1 pg Normal 27.0-34.0 [facility] Comment on above: Performed By: #### 2 525932, 6656929, 95734554, 77248859, 3558878 ####[address] [address] MCHC (RBC) [Mass/Vol] 32.7 g/dL Normal 31.4-36.0 [facility] Comment on above: Performed By: #### 2 407039, 8713083, 58154408, 50564100, 0144000 ####[address] [address] MCV (RBC) [Entitic vol] 89.1 fL Normal 80.0-100.0 [facility] Comment on above: Performed By: #### 2 818106, 9061119, 93535784, 64818116, 5538922 ####[address] [address] Platelet mean volume (Bld) [Entitic vol] 9.4 fL Normal 6.4-10.8 [facility] Comment on above: Performed By: #### 2 216871, 4747481, 37306690, 47460830, 1796611 ####[address] [address] Platelets (Bld) [#/Vol] 185.0 E9/L Normal 150.0-500. 0 [facility] Comment on above: Performed By: #### 2 803372, 2060519, 47846998, 45529001, 6091899 ####[address] [address] RBC (Bld) [#/Vol] 4.0 E12/L Low 4.3-5.9 [facility] Comment on above: Performed By: #### 2 588363, 3097790, 96610556, 69893240, 3491640 ####[address] [place] [address] WBC corrected for nucl RBC Auto (Bld) [#/Vol] 7.7 E9/L Normal 4.0-11.0 [facility] Comment on above: Performed By: #### 2 474927, 6607901, 71479763, 27209635, 6036310 ####[facility] [address] [place] [address] CHEMISTRYOrdered By: SYSTEM SYSTEM on 02-17-2022 Anion [...] 59 mL/min/1.73 m2 Normal >=59mL/min /1.73 m2 [facility] Chem S GFR/1.73 sq M.predicted among non-blacks MDRD (S/P/Bld) [Vol rate/Area] 49 mL/min/1.73 m2 Low >=59mL/min /1.73 m2 [facility] Chem S Glucose [...] for Treatmenton 01-21 Consent for Treatment [id number]#1.00CD:127 Normal [facility] HEMATOLOGYOrdered By: SYSTEM SYSTEM on 02-17-2022 Basophils/100 [...] Coag (PPP) [Time] 31.0 second(s) Normal 25.1-36.5 [facility] Comment on above: Result Comment: Hepa rin therapeutic range (represented by Anti-Factor Xa activity of 0.2 - 0.4 U/mL) corresponds to PTT of 56.6 - 109.0 sec. Performed By: #### 2 [id number], [id number], [id number], [id number], [id number] ####[facility] [id number] [place] [address] INR Coag (PPP) [Relative time] 1.3 {INR} Invalid Interpretation Code [facility] Comment on above: Result Comment: INR results are specifically intended to assess patients stabilized on long-term Anticoagulation therapy suggested INR?s ?Less Intensive Anticoagulation? 2.0 ? 3.0 Conventional Range 3.0 ? 4.5 Performed By: #### 2 [id number], [id number], [id number], [id number], [id number] ####[facility] [address] [place] [address] PT Coag (PPP) [Time] 15.5 second(s) High 10.2-12.9 [facility] Comment on above: Performed By: #### 2 [id number], [id number], [id number], [id number], [id number] ####[facility] [id number] [place] [address] UA With Cult Reflexon 2021 Bacteria LM Ql (Urine sed) SEE COMMENT Invalid Interpretation Code [facility] Comment on above: Result Comment: POSS IBLY PRESENT BUT OBSCURED BY COPIOUS AMOUNT OF RBCS Performed By: #### 1 [id number], [id number] #### [facility] [address] [place] [address] Bilirubin Ql (U) Negative Normal Negative [facility] Comment on above: Performed By: #### 1 [id number], [id number] #### [facility] [address] [place] [address] Clarity (U) CLOUDY Abnormal Clear [facility] Comment on above: Performed By: #### 1 [id number], [id number] #### [facility] [address] [place] [address] Color (U) RED Abnormal Yellow [facility] Comment on above: Performed By: #### 1 [id number], [id number] #### [facility] [address] [place] [address] Epithelial cells.squamous LM.HPF (Urine sed) [#/Area] See Comment Normal 0-2 [facility] Comment on above: Result Comment: POSS IBLY PRESENT BUT OBSCURED BY COPIOUS AMOUNT OF RBCS Performed By: #### 1 [id number], [id number] #### [facility] [address] [place] [address] Glucose Test strip (U) [Mass/Vol] Negative Normal Negative [facility] Comment on above: Performed By: #### 1 [id number], [id number] #### [facility] [address] [place] [address] Hemoglobin Ql (U) 3+ Abnormal Negative [facility] Comment on above: Performed By: #### 1 [id number], [id number] #### [facility] [address] [place] [address] Ketones (U) [Mass/Vol] TRACE Invalid Interpretation Code Negative [facility] Comment on above: Performed By: #### 1 [id number], [id number] #### [facility] [address] [place] [address] [place].plasma/[place] .RBC (Bld) [Mass ratio] >75 Abnormal 0-3 [facility] Comment on above: Performed By: #### 1 [id number], [id number] #### [facility] [address] [place] [address] Nitrite Ql (U) Positive Abnormal Negative [facility] Comment on above: Performed By: #### 1 [id number], [id number] #### [facility] [address] [place] [address] pH (U) 7.0 [pH] Invalid Interpretation Code 5.0-9.0 [facility] Comment on above: Performed By: #### 1 [id number], [id number] #### [facility] [address] [place] [address] Protein (U) [Mass/Vol] 3+ Abnormal Negative [facility] Comment on above: Performed By: #### 1 [id number], [id number] #### [facility] [address] [place], [place] [id number] Specific gravity (U) [Rel density] 1.015 Invalid Interpretation Code 1.005-1.03 0 [facility] Comment on above: Performed By: #### 1 [id number] #### [facility] Laboratory [address] [place] [address] Type of Urine collection method Clean Catch Normal [facility] Comment on above: Performed By: #### 1 [id number] #### [facility] [address] [place], [place] [id number] Urobilinogen Qn (U) 1.0 {Terry'U}/dL Normal 0.0-1.0 [facility] Comment on above: Performed By: #### 1 [id number] #### [facility] [address] [place] [address] WBC Auto Ql (U) 1+ Abnormal Negative [facility] Comment on above: Performed By: #### 1 [id number], [id number] #### [facility] [address] [place] [address] WBC LM.HPF (Urine sed) [#/Area] See Comment Normal 0-5 [facility] Comment on above: Result Comment: POSS IBLY PRESENT BUT OBSCURED BY COPIOUS AMOUNT OF RBCS Performed By: #### 1 [id number], [id number] #### [facility] [address] [place] [address] URINALYSISOrdered By: Luis Enrique wiley on 02-17-2022 [...] Interpretation Code Negative [facility] UA Auto SS [place].plasma/[place] .RBC (Bld) [Mass ratio] >75 /HPF Invalid [...] [facility] UA Auto SS Urobilinogen Qn (U) 1.6485732 {Terry'U}/dL Normal 0.0 - 1.0 EU/dL [facility] [...] [Vol rate/Area] 59 mL/min/1.73 m2 Normal >=59 [facility] Comment on above: Order Comment: Order added by Discern Expert. Result Comment: eGFR is race adjusted. AA=. Performed By: #### 2 [id number], [id number], [id number], [id number] ####[facility] [address] [place] [address] GFR/1.73 sq M.predicted among non-blacks MDRD (S/P/Bld) [Vol rate/Area] 49 mL/min/1.73 m2 Low >=59 [facility] Comment on above: Order Comment: Order added by Discern Expert. Result Comment: Auxiliary Engineer swathi kidney disease could be indicated at eGFR's of less than 60 mL/min/1.73m2. Kidney failure is indicated at less than 15 mL/min/1.73m2. Performed By: #### 2 [id number], [id number], [id number] ####[id number] [place] [address] XR Spine Lumbar 4+ Views*on 02-10-2022 XR [...] by JACKLYN KOO on 02/11/2022 0917 Normal [facility] Manager Ambulatory Visit Summaryon 0 02-01-2022 Ambulatory Visit [...] infections. ? (more content not included)... Normal [facility] Patient Educationon 02-02-20 Patient Education Oncology Bladder [...] Follow these instructions at home: ? Take rljp-qlb-xnvtegh and prescription medicines only as told by [...] important. Where to find more information ? [place] [employer]: www.cancer.org ? National Cancer [place] (NCI): www.cancer.gov Contact a health care provider [...] 08/09/2004 Document Revised: 07/20/2018 Document Reviewed: 07/11/2017 [employer] Patient Education ? 2019 [employer]. 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 He had a TUR of his bladder tumor on 01/13/2022. Is here today for his first postop visit. [employer] Pascual is here today for a [...] q12hr, # 30 tab(s), Refills(s) 0, [facility]: [facility] Urology Procedure (more content not included)... Normal [facility] Comment on above: Result Comment: Elec tronically Signed By: Yoko Leyva Jr., MD\.br\Date and Time Signed: 02/01/22 11:54 EDT\.br\Electronically Co-Signed By: Jolly Justice\.br\Date and Time Co-Signed: 02/01/22 11:50 EDT Operative Reporton 2 Operative Report [id number]#[id number]:127 [facility] Coding Summary.on 01-25-2022 Coding Summary. CD:[id number] Gh0bWw +PGhlYWQ+JL3YVNIuO96crTWfg G6GX0oNJR6ZQBLYULYUPM7BIY2 iuJE0TTqcS3FmafUp HrcnbCWbDG23QVz6CLS9tVctMZ oigW4dlBUtY5z3JaPhFJ53iR23 ANzhLNZtUoG4IbVodzcznJFl U4pwLbHwgOPvYij+PHRhYmxlIH ipHFPsNQzaFTXiJnIliWdvVA5s Ma2pSRNsYPQeyOwiyHBzGmDd g1sxSTQiFUxvZM8mgBebL8JkhZ H9QZTix7t3Pe84zQB+PHRkIHN0 uHlmSSwom265RjNpx0dkFIG9 dAIgYItuXZK1O78lc9F2FVEvTV IvVXK7oNF2fK7hrSzygokjM2Ak aNTuWcI2KIB2gYDchM7urVoe mkccoT9sYeb+S74WEV9WXFXNSE 0EQqg9T5XbXorlhPV+FJ62PFGx PW36rCErpEAgk6ndgOe9HjMg XGZiISZ4wDhlLYjxx1XdXUUrP1 7stLRbn6V1XUXjvBcsjZZzIlAg uHV5tW7hHRvawobrs0lrhxvn Bgyar3telv87yL40K49iEKvkMZ RdOZM2KBKhPVScaLkvvn4urY9i Ii8+KIbom2wfh8toaDx0TsKc AVZzomNaxNdbQXC5r8ZjBx37O2 YxwCzzf0IuQpu4gs68cVDyb2O8 fKJ4FXwgMMCylA8oSMniHpS6 XDNyOuBryU59cJHgYIyqCi6bmI oluWgfVR6xTVJyinjkKQJmqA1b DGWsqUXpaJrsCM6uDKEzouru j038VbObIDA4VOUqfZQgY2AfnQ 7tRcAbAYZhDGQjB5YrrDIkSHwn Q828ZMjwUiI7GDFmlbDgM2Ti BMXnlDckTrW2g6C7Ij7Zu0Hxba muDAC1JSvfZRS6QpB3YqMpUsN8 L8FdSxp8ESRygIpyXM8vZ4Kk BGIeahfldhypcFD1PWLpCPVldH 00iBBcVJmcFn2wh8L6y883CEFi JGOfrD25Ke8vpDxqNAOknVYT cD1htxgvm3vyxngbHmMlDRBgRE b3LOi5XWKclVysKfUcZWF3JtQ2 LPH0rHIvvN1qtTrptevhhS8s Oyc+S41wyJ2lDEY6QKO2ratbQX JxdwFoWL31OT08K9AbHkybsTLm bGU+ULNfkwUbwVnmAI7mYiQo l4nin2JaIZduO5ErPQVaWNzlHp m1BOGxHRF3hHG8mO4zDNEfDIph i8V8gOL3X9IxaqRwzl9ei5la EIDtXIzaU81clUBjt9Z1RYVenM Z6OVHrwAnlJoUlnI82Dik+PGNv aAeoe6DoWnxom7tag7twsMe6 IcGoVNSzgnVoqToaAEY4t9ZxSl 11J26hASsiPNFmNDFzOTRjHOOs gDnedq0doJ1hSc1+PGNvbCB3 uWB3dZ8sOVOpQgI8JRhqE533Tg UqiYQzYbzql6fkc2ohxOg8KtIy DQAqcqJvuWkoXVD3c8NjQp32 B40lPKblXXDpCRGoFFDhTZEoqD vwjs5koC4fWq4+LS5hi1exik07 lM57eDM+AFFoBUN0pBdeKXoa PVYyeS9aBOsdOrH6CTLyXiSroD 24pGKnTAyoTz1ljMvhoVasKM7w PGMxgxnic074ZvUhu2kzNPQr gPJcOUibKDR7R73xd9N3TIUgUB XvHEA5wQR0vH5bqJiygqfdkKYa wVkkuvEbaXnkTRnoCOihW621 IHRvcDsnPlBhdGllbnQgTmFtZT l5S2DcLzf9PCHphWaoXA0nvVZb RRgdZh5lqOjwfPoeSA6tCSGm omtol193GkKrr8ijMTNrtTSvAO chRBV7Q55ly7F9LPGhTUOnVVE0 kVQ1vJ5qzWbdxxfiwUJvjDpl udRbgYhuYLlnDEpuY472RQIvxY sdMeAttxGaSQYwkNF3ZG59TP67 mVKep1P1lST9C9GiDVAnfhgh arlsjLC7YDTyGXLkvZ38Ef5zmS vhPr3pMELuBGR4FTSuoPNtV6Dj hM0oPyIhRFJxXKZbL8XzjJKr RUweY836MQyiHcA3MLPbkcIbA9 YwIUSnlHpfSyG2w1D3Gx7HM1G7 AU85XV87yHTco6I9cLJ5Q1Jj BCMwginblbkwaPO9XSOcPSZicF 50Vs3ypPedNz8aZXRlWTB6PEFz hFGmW1PkfR3pCdTiMGArRTKy N1CulIFsWJcdB345FFryEaJ7SY GhrvXwY4CuAXXbaIxzAhC9u7D8 Cw0UAXq7AZ54XZ73vSGiq7F0 sUF3M0MmRPBedhnxeazguMM6AA QiNYDnbM23Gq1agBgeRs0mHXQb JIY3SQLzpUKkD0ZigX7yMjSl SRRoDEGdD8GqmZWcBUjvJ652LM wiQeD4NDAvmxQrJ5LkFZNwwIbi ZjZ5t5O3Tw5LFSDvTO16QLO8 cUK4ZQ77EU93S7PuZwnrmURzdJ U+PHRhYmxlIHdpZHRoPScxMDAl SrWeaMckYB7lWe5vUUQuNEVi fIufiKXpEiEbx5kvJLXvXThzLK 9yjSlhD7QtrON7CBCyq6h8Ij89 A14kJ0MawXH+CTDciBD6zXZ3 uV1qJuCgMvQ9FXyrG149HwUoaC ZgLgcfk8rel2vjaTk7KnI2OLLx qdVjgPqfLLL3c7OcFd11W17n IHdpZHRoPSIxNSUiIHZhbGlnbj 5rtI4cIm1+FQFcvOI5dNA3uD0c UhTwAxO9KNjgT200IsGaeFVl Szouv2hnk8oozNv8SeWgKPAhef LreFzaMUA6w8PqQu67C1ZqnUkq x9QjCwc1kj47fYNdl5S5bFG9 L2SvXIVgkxworEZxjIqfGJ7iKI LiljzsDQVdsE4iDGZuZ1w7UzUg KnZ4LRhlO5PwssI9SSPltLWa SJqrYXE0T21av7H0FMTgOILyKG T0lQM6fM4gfPyfhzohbEZqkYci alTjoOweIRidBBlrY631IUTl jBcmKDXllS9nZITkoMBbaLzdQA 4lYQKzrcmeRsEBA49OQkzrY4eI PwtXDbZOZZ65VD57zTIri7S6 fNW2H3TbIOIdvkcphluspCW3QE KnRTSzeU22cYUkNYjtUs5wz6S0 y524YNDkOCKisH59Or3buDqv KBSefZNUfT8khqbnr7oqwmwtEq PqFLVwVTf1GEk5XHHznKqeGcDv RMV9ZnG3DSB9cIUcrK4yuKmi xuinxP7fLzi+XNMqVIGaXYt8PF wvdGQ+NOQhSXY1uZlqLCtlRYYh mI0iTYUjS7g2LjMqTwJ1OAkw A0WvVZXgmmmqGl43iC2tMyXmFg F2BQgxO6FwleH6PCQbwHSnZFjm GLO2K69tm6Q5QCHcZFZoCWS7 eJD0eZ9dyCwlgxvruYYrhMoeba BmjPrcCLdlBFkdZ722QSAlgLzo Rep9DRlqVTJnAS64AH19bWNw c7M8lNG4C6VqPEFfwfdyhndopF Q8PDHsSJIcfF31vCVpADhvLf0k w7F5x277NDFiFWLlvT38Zi0f oYrbUZVaiMWPtP6doelgd2cpso jfIzKlWANtUBm9LIc8KMHfxUbv MaDbADA1XrZ9MGX5jHDdxR7d kUcexwisaI3tGfd+TWFsZTwvdG Q+NJCxEEV7aItjBAriCPZcxW8w PCBdU9y4SzDrOnP1RCpxL4Ub PSDpvcefDu49dV1mMkQrAjA4YQ jnN3PtusA4DMAvpUGfGXbfSDQ2 A40yg2K5OXPdOXJyONZ0lRF4 tC7izOiudtcbeOZtwIpltxPzgF toCNeuLVluU971DREbaDkpVrvm KxPVnf9uEZ0qGggccIO+PC90 ct88I7DjPkfxJxe8YMJxTUU4jJ S3dY8iGXTqOAxjz5T5pZL3C9Ie caCsja8yy1kiCHJhYSizF66j bEHzb5Q4ZYNzgUE4EWUloBjiPr HokM68Oui+YSNsmZbjr2LjVrkj n9avd6cnlOy6QkHiAGBtlpHw cGuaLTA2b5FyWl78H84gLUcqVB OfKGDcXZCaVTUikWlwec0hmC5t Ii8+FTQwoUB2sJT2cJ1kCiSr BxQ0CVtbA501TaDmhFWvCiadq2 jce8foiOc8AgMqCWIfbzDrzWlo AIF8r3ZgSn25B4FetMpvc6He Pud9an09iPQgb2W2vZV9Z2BxDO ShlvpwwYLnoWxxXB9sLDJfeifx AZAtgW0nYUKxT0u7PzAcLtU4 IXvgA9OzbmD9DBNdwKElXEGtsW YIlP4pypamb9bmodydGwDmMGBe NPk5FRe0PMApeSxsXvAfHFP3 UkU3JNM4lXVhfA8loEjwcpvwtR 9wOyc+ZPj8i8ufaAKsOK3dqMU0 JT23AM31iJWmx0Q5uOS5J4Er CRCstzqpdefhsQP8NBOpEEYxsM 16Ob4ajDdkSg2lDYRpKNP2JYJw oMUcW3FnqD0zJcFzPZYnQIFn T1MqlOFoZLodR802DAidZxM2KI ZskhIsN2PoEUIdtBhaVlQ4k9T2 Tq8BAJ48BW00AC94cWAri9L3 mNP4D7OxPNNlwqyyokhatDA5SY VlQAYzdJ14Jp1bcRwpLi2jFPYe QIY1XEIczMSgG4MzaZ8zEeOl ROZyHYBsV8KohIXoRSbbG193OQ yxKuR0MHJpsfMtY7LdWZGcnYgu YgW4x4A6Og0GRo21HC04NI90 bFTum1D0aUJ5L4AkEUGtnbwmse cyzMF6RQNrXXOccI90Zp3uvYsr Qb2vCICiQTO0YIIviWDlK0Ji cL1aIoByPTHvRHXbF0HioVKlMH dbY136WRlxPmF7RFPypcBzI9Ti ACHvsPcsZdH5n4T8Ll0AYFca jdl9Z4ZnCkgngFV+OX48QEJvVS 72iSQxqAXga7hteXz4TtYvBFDi IHO7vBsySNtfl4CxSJStC60l bGFw (more content not included)... Normal [facility] Reminderson 01-24-2022 Reminders - From: Miller Shirley MA To: EU - Clinical; Sent: 01/21/2022 14:39:52 EDT Show up: 01/24/2022 08:00:00 EDT Subject: Ambulatory Reminder Reminder/Recall urine culture addressed. NICK Normal [facility] C Urineon 01-23-2022 Bacteria identified Cx Nom [...] Locations R1: This test was performed at: [facility], [address] [place] [address], [facility] , , [facility] Comment on above: Performed By: #### 2 [id number] ####[place] [address] Ambulatory Visit Summaryon 0 01-21-2022 Ambulatory Visit Summary TAURUS GARCIA :1945 Visit Date:01/21/2022 Ambulatory Visit Instructions Your Diagnosis Urgency of urination Tests Performed Urnls Dip Stick Auto w/o Microscopy POC 40928 Your Care Team Attending Physician - Yoko [...] MD, Yoko Hair Where: [facility] Pathology Noteon 01-19-2022 Pathology Note [id number]:127 [facility] Ambulatory Visit Summaryon 0 01-18-2022 Ambulatory Visit [...] sleep apnea, adult Pulmonary embolism Radiculopathy Normal [facility] Lab Reportson 01-11-2022 Lab Reports [id number]:127 Normal [facility] Lab Reportson 01-10-2022 Lab Reports [id number]:127 Normal [facility] PROF CHEM 8 (BAS METB)on Anion gap [Moles/Vol] 12.8 mmol/L Normal [facility] Comment on above: Performed By: #### B MP #### [facility] [address] [address] [address] Chao Garcia Calcium [Mass/Vol] 9.4 mg/dL Normal 8.5-10.1 [facility] Comment on above: Performed By: #### B MP #### [facility] [address] [address] [address] Chao Garcia Chloride [Moles/Vol] 107 mmol/L Normal 98-107 [facility] Comment on above: Performed By: #### B MP #### [facility] [address] [address] [address] Chao Garcia CO2 [Moles/Vol] 27.6 mmol/L Normal 21.0-32.0 [facility] Comment on above: Performed By: #### B MP #### [facility] [address] [address] [address] Chao Garcia Creatinine [Mass/Vol] 1.47 mg/dL Critically high 0.70-1.30 [facility] Comment on above: Performed By: #### B MP #### [facility] [address] [address] [address] Chao Garcia EGFR-AF GRENADIAN 56 mL/min/1.73m2 Critically low >=60 [facility] Comment on above: Performed By: #### B MP #### [facility] [address] [address] [address] Chao Garcia EGFR-NON AF GRENADIAN 46 mL/min/1.73m2 Critically low >=60 [facility] Comment on above: Performed By: #### B MP #### [facility] [address] [address] [address] Chao Garcia Glucose [Mass/Vol] 142 mg/dL Critically high 74-106 [facility] Comment on above: Performed By: #### B MP #### [facility] [address] [address] [address] Choa Garcia Potassium [Moles/Vol] 3.4 mmol/L Critically low 3.5-5.1 [facility] Comment on above: Performed By: #### B MP #### [facility] [address] [address] [address] Chao Garcia Sodium [Moles/Vol] 144 mmol/L Normal 136-145 [facility] Comment on above: Performed By: #### B MP #### [facility] [address] [address] [address] Chao Garcia Urea nitrogen [Mass/Vol] 33.0 mg/dL Critically high 7.0-18.0 [facility] Comment on above: Performed By: #### B MP #### [facility] [address] [address] [address] Chao Garcia Urea nitrogen/Creatinine [Mass ratio] 22.4 mg/mg Normal [facility] Comment on above: Performed By: #### B MP #### [facility] [address] [address] [address] hCao Garcia Consent for Procedure/[facility] 01-04-2022 Consent for Procedure/Surgery [id number]:12 7 Normal [facility] Ambulatory Visit Summaryon 0 12-27-2021 Ambulatory Visit [...] [facility] [address], [place] [address]- Medications What How Much When Instructions Unchanged [...] serious c (more content not included)... Normal [facility] Patient Educationon 12-28-19 Patient Education Urology Hematuria, [...] these instructions at home: Medicines ? Take bvny-dbn-kdyqcpl and prescription medicines only as told by [...] the blood stops without treatment. ? Take ihry-ags-dukbyxx and prescription medicines only as told by your health care provider. ? Drink enough fluid to keep your urine clear or pale yellow. This information is not intended to replace advice given to you by your health care provider. Make sure you discuss any questions you have with your health care provider. Document Released: 08/07/2006 Document Revised: 01/01/2020 Document Reviewed: 09/09/2017 [employer] Patient Education ? 2019 [employer]. Normal [facility] Urology Office/Clinic Noteon 12-27-2021 Urology Office/Clinic Note [...] urine The Urethra was dilated to: _ Ug[place]an with sounds. Specimens Removed: Voided specimen sent [...] on delayed axial image 228. Ordered: Cystourethroscopy [id number] Urology Procedure Order 2. Gross hematuria (R31.0: [...] Full informe (more content not included)... Normal [facility] Comment on above: Result Comment: Elec tronically Signed By: Autumn Molina MD, Yoko Hair\.br\Date and Time Signed: 12/27/21 13:27 EDT\.br\Electronically Co-Signed By: Elvin Hawthorne\.br\Date and Time Co-Signed: 12/27/21 13:19 EDT Lab Reportson 12-16-2021 Lab Reports [id number]:127 Normal [facility] RAD - CT Reporton 12-16-2021 RAD - CT Report [id number]:127 Normal [facility] CREATININEon 12-15-2021 Creatinine [Mass/Vol] 1.52 mg/dL Critically high 0.70-1.[address] [facility] Comment on above: Performed By: #### C RAFA #### [facility] [address] [address] [address] Chao Garcia EGFR-AF GRENADIAN 54 mL/min/1.73m2 Critically low >=[address] [facility] Comment on above: Performed By: #### C RAFA #### [facility] [address] [address] [address] Chao Garcia EGFR-NON AF GRENADIAN 45 mL/min/1.73m2 Critically low >=[address] [facility] Comment on above: Performed By: #### C RAFA #### [facility] [address] [place], [place] [address] ABD/PELV W CONon [...] by: JORDAN RUTLEDGE Date: 2021-12-15 13:10 Normal [facility] Formson 12-15-2021 Forms [id number]:127 Normal [facility] UroVysion Fish and Urine Cyt o ([facility])on 12-13-2021 UVFISH & UC Diagnosis Info Invalid Interpretation Code [facility] Comment on above: Result Comment: A:Ur ine,Urine:Voided [...] on: 12/13/2021 13:24:10 Performed By: #### 1 [id number] ####[facility] [address] [place] [address] Patient Educationon 12-08-19 22 Patient Education Urology [...] these instructions at home: Medicines ? Take ypqc-htb-gnkwufe and prescription medicines only as told by [...] the blood stops without treatment. ? Take lefc-atf-bxgydrk and prescription medicines only as told by [...] Reviewed: 09/09/2017 Elsevier Patient Education ? 2019 [employer] Normal [facility] UroVysion Fish and Urine Cyt o ([facility])on 12-07-2021 UVUC Method of Extraction Voided Normal [facility] Comment on above: Performed By: #### 1 [id number] ####[facility] [address] [place] [address] [facility] Number of Jars 1 Invalid Interpretation Code [facility] Comment on above: Performed By: #### 1 [id number] ####[facility] [address] [place] [address] [facility] Specimen Urine Normal [facility] Comment on above: Performed By: #### 1 [id number] ####[facility] [address] [place] [address] [facility] Type of Service Global Normal [facility] Comment on above: Performed By: #### 1 [id number] ####[facility] [address] [place] [address] Urology Office/Clinic Noteon 12-07-2021 Urology Office/Clinic Note Chief Complaint Gross hematuria with moderate bladder outlet obstruction symptoms. Patient is on Eliquis. [employer] This is a 76 year old [...] procedure, # 2 tab(s), Refills(s) 0, Pharmacy: [facility] Follow-up With When Contact Information Autumn Molina MD, Yoko Hair, [facility] [address], [place] [phone] Additional Instructions: Patient Education Hematuria, Adult I, Margaret Mitchell, personally scribed for Dr. Leyva on 12/07/2021 10:01:53. . Documentation recorded by the scri (more content not included)... Normal [facility] Comment on above: Result Comment: [...] MG Oral TabletTake 1 tablet daily Pyridostigmine Fay 60 MG Oral TabletTAKE 1 TABLET 4 [...] Recorded: 31Aug2021 01:21PM Heart Rate74, L Radial Zmbtxpck716, LUE, Sitting Zfndfguqa92, LUE, Sitting Height5 ft 9 in Qeoujs316 lb BMI Cnnwonvtnf11.62 kg/m2 BSA Calculated2.58 Tobacco Useb) No Fall [...] Basophils (Bld) [#/Vol] 0.05 10*3/uL Normal 0.00-0.20 [facility] Abstract Manager Comment on above: Performed By: #### C MP, LIPD, TSH, CBCAD, FT4 #### [facility] [address], [place] [id number] Basophils/100 WBC (Bld) 0.7 % Normal [facility] Specialist Comment on above: Performed By: #### C MP, LIPD, TSH, CBCAD, FT4 #### [facility] [address], [place] [id number] Eosinophils (Bld) [#/Vol] 0.15 10*3/uL Normal 0.02-0.50 [facility] Abstract Manager Comment on above: Performed By: #### C MP, LIPD, TSH, CBCAD, FT4 #### [facility] [address], [place] [id number] Eosinophils/100 WBC (Bld) 2.0 % Normal [facility] Abstract Manager Comment on above: Performed By: #### C MP, LIPD, TSH, CBCAD, FT4 #### [facility] [address], [place] [id number] Erythrocyte distribution width (RBC) [Ratio] 14.6 % Normal 11.0-15.0 [facility] Comment on above: Performed By: #### C MP, LIPD, TSH, CBCAD, FT4 #### [facility] [address], [place] [id number] Hematocrit (Bld) [Volume fraction] 43.5 % Normal 38.5-50.0 [facility] Specialist Comment on above: Performed By: #### C MP, LIPD, TSH, CBCAD, FT4 #### [facility] [address], [place] [id number] Hemoglobin (Bld) [Mass/Vol] 13.8 g/dL Normal 13.0-17.1 [facility] Specialist Comment on above: Performed By: #### C MP, LIPD, TSH, CBCAD, FT4 #### [facility] [address], [place] [id number] Lymphocytes (Bld) [#/Vol] 2.5 10*3/uL Normal 0.9-3.9 [facility] Specialist Comment on above: Performed By: #### C MP, LIPD, TSH, CBCAD, FT4 #### [facility] [address], [place] [id number] Lymphocytes/100 WBC (Bld) 32.3 % Normal [facility] Specialist Comment on above: Performed By: #### C MP, LIPD, TSH, CBCAD, FT4 #### [facility] [address], [place] [id number] MCH (RBC) [Entitic mass] 30.3 pg Normal 27.0-33.0 [facility] Specialist Comment on above: Performed By: #### C MP, LIPD, TSH, CBCAD, FT4 #### [facility] [address], [place] [id number] MCHC (RBC) [Mass/Vol] 31.7 g/dL Low 32.0-36.0 [facility] Comment on above: Performed By: #### C MP, LIPD, TSH, CBCAD, FT4 #### [facility] [address], [place] [id number] MCV (RBC) [Entitic vol] 95 fL Normal 80-100 [facility] Comment on above: Performed By: #### C MP, LIPD, TSH, CBCAD, FT4 #### [facility] [address], [place] [id number] Monocytes (Bld) [#/Vol] 0.9 10*3/uL Normal 0.2-0.9 [facility] Comment on above: Performed By: #### C MP, LIPD, TSH, CBCAD, FT4 #### [facility] [address], [place] [id number] Monocytes/100 WBC (Bld) 11.5 % Normal [facility] Comment on above: Performed By: #### C MP, LIPD, TSH, CBCAD, FT4 #### [facility] [address], [place] [id number] Neutrophils (Bld) [#/Vol] 4.1 10*3/uL Normal 1.5-7.8 [facility] Comment on above: Performed By: #### C MP, LIPD, TSH, CBCAD, FT4 #### [facility] [address], [place] [id number] Neutrophils/100 WBC (Bld) 53.0 % Normal [facility] Comment on above: Performed By: #### C MP, LIPD, TSH, CBCAD, FT4 #### [facility] [address], [place] [id number] Platelet mean volume (Bld) [Entitic vol] 10.70 fL Normal 7.50-12.50 [facility] Comment on above: Performed By: #### C MP, LIPD, TSH, CBCAD, FT4 #### [facility] [address], [place] [id number] Platelets (Bld) [#/Vol] 208 10*3/uL Normal 140-400 [facility] Comment on above: Performed By: #### C MP, LIPD, TSH, CBCAD, FT4 #### [facility] [address], [place] [id number] RBC (Bld) [#/Vol] 4.56 10*6/uL Normal 4.20-5.80 [facility] Comment on above: Performed By: #### C MP, LIPD, TSH, CBCAD, FT4 #### [facility] [address], [place] [id number] RDW-SD 51.6 fL High 37.0-50.0 [facility] Comment on above: Performed By: #### C MP, LIPD, TSH, CBCAD, FT4 #### [facility] [address], [place] [id number] WBC (Bld) [#/Vol] 7.7 10*3/uL Normal 3.8-11.0 [facility] rn [place] [facility] Comment on above: Performed By: #### C MP, LIPD, TSH, CBCAD, FT4 #### [facility] [address], [place] [id number] [facility] 08-18-2021 Albumin [Mass/Vol] 4.2 g/dL Normal 3.6-5.1 Jena romero [place] [facility] Comment on above: Performed By: #### C MP, LIPD, TSH, CBCAD, FT4 #### [facility] [address], [place] [id number] Albumin/Globulin [Mass ratio] 2.0 {ratio} Normal 1.0-2.5 [facility] Comment on above: Performed By: #### C MP, LIPD, TSH, CBCAD, FT4 #### [facility] [address], [place] [id number] ALP [Catalytic activity/Vol] 69 U/L Normal 40-129 [facility] Comment on above: Performed By: #### C MP, LIPD, TSH, CBCAD, FT4 #### [facility] [address], [place] [id number] ALT [Catalytic activity/Vol] 22 U/L Normal 9-46 [facility] Comment on above: Result Comment: 07/21 Female reference range changed. Performed By: #### C MP, LIPD, TSH, CBCAD, FT4 #### [facility] [address], [place] [id number] Anion gap [Moles/Vol] 18 mmol/L Normal 12-20 [facility] Special[facility] Comment on above: Result Comment: Effe ctive 08/26/2019 reference range changed. Performed By: #### C MP, LIPD, TSH, CBCAD, FT4 #### [facility] [address], [place] [id number] AST [Catalytic activity/Vol] 21 U/L Normal 10-40 [facility] Comment on above: Performed By: #### C MP, LIPD, TSH, CBCAD, FT4 #### [facility] [address], [place] [id number] Bilirubin [Mass/Vol] 0.60 mg/dL Normal 0.30-1.[address] [facility] Comment on above: Performed By: #### C MP, LIPD, TSH, CBCAD, FT4 #### [facility] [address], [place] [id number] BUN/CREA 20 Ratio Normal 6-22 [facility] Comment on above: Performed By: #### C MP, LIPD, TSH, CBCAD, FT4 #### [facility] [address], [place] [id number] Calcium [Mass/Vol] 9.3 mg/dL Normal 8.6-10.[address] [facility] Comment on above: Performed By: #### C MP, LIPD, TSH, CBCAD, FT4 #### [facility] [address], [place] [id number] Chloride [Moles/Vol] 104 mmol/L Normal 98-[address] [facility] Comment on above: Performed By: #### C MP, LIPD, TSH, CBCAD, FT4 #### [facility] [address], [place] [id number] CO2 [Moles/Vol] 25 mmol/L Normal 20-31 [facility] Comment on above: Performed By: #### C MP, LIPD, TSH, CBCAD, FT4 #### [facility] [address], [place] [id number] Creatinine [Mass/Vol] 1.2 mg/dL Normal 0.7-1.4 [facility] Comment on above: Performed By: #### C MP, LIPD, TSH, CBCAD, FT4 #### [facility] [address], [place] [id number] eGFRAA 72 mL/min/1.73m2 Normal >60 [facility] Comment on above: Performed By: #### C MP, LIPD, TSH, CBCAD, FT4 #### [facility] [address] [place] [id number] eGFRNAA 59 mL/min/1.73m2 Low >60 [facility] Specialist Comment on above: Performed By: #### C MP, LIPD, TSH, CBCAD, FT4 #### [facility] [address] [place] [id number] Globulin (S) [Mass/Vol] 2.1 g/dL Normal 1.9-3.7 [facility] Specialist Comment on above: Performed By: #### C MP, LIPD, TSH, CBCAD, FT4 #### [facility] [address], [place] [id number] Glucose [Mass/Vol] 132 mg/dL High 65-99 [facility] Abstract Manager Comment on above: Result Comment: For FASTING Glucose --- ADA reference ranges: Normal 65-99 mg/dl Prediabetes 100-125 Diabetes >/= 126 Performed By: #### C MP, LIPD, TSH, CBCAD, FT4 #### [facility] [address], [place] [id number] Potassium [Moles/Vol] 3.4 mmol/L Low 3.5-5.5 [facility] Comment on above: Performed By: #### C MP, LIPD, TSH, CBCAD, FT4 #### [facility] [address] [facility] [place] [id number] Protein [Mass/Vol] 6.3 g/dL Normal 6.1-8.1 [facility] Abstract Manager Comment on above: Performed By: #### C MP, LIPD, TSH, CBCAD, FT4 #### [facility] [address] [facility] [place] [id number] Sodium [Moles/Vol] 144 mmol/L Normal 135-146 [facility] Abstract Manager Comment on above: Performed By: #### C MP, LIPD, TSH, CBCAD, FT4 #### [facility] [address] [facility] [place] [id number] Urea nitrogen [Mass/Vol] 23 mg/dL Normal 7-25 [facility] Abstract Manager Comment on above: Performed By: #### C MP, LIPD, TSH, CBCAD, FT4 #### [facility] [address], [place] [id number] Free T4on 08-18-2021 Free T4 [Mass/Vol] 1.26 ng/dL Normal 0.80-1.[address] [facility] Comment on above: Performed By: #### C MP, LIPD, TSH, CBCAD, FT4 #### [facility] [address], [place] [id number] Lipid Panelon 08-18-2021 Cholesterol [Mass/Vol] 170 mg/dL Normal 125-200 [facility] Comment on above: Result Comment: Low risk < 200mg/dL Borderline risk 201-239 mg/dl High risk > or equal to 240 Performed By: #### C MP, LIPD, TSH, CBCAD, FT4 #### [facility] [address], [place] [id number] Cholesterol in HDL [Mass/Vol] 70 mg/dL Normal >40 [facility] Specialist Comment on above: Result Comment: High Cardiovascular Risk HDL <40 mg/dL Low Cardiovascular Risk HDL > or equal to 60 mg/dl Performed By: #### C MP, LIPD, TSH, CBCAD, FT4 #### [facility] [address], [place] [id number] Cholesterol in LDL [Mass/Vol] 78 mg/dL Normal [facility] Comment on above: Result Comment: LDL ATP III CLASSIFICATION LDL less than 100 mg/dl Optimal LDL 100-129 mg/dl Near or above optimal LDL 130-159 Borderline high LDL 160-189 High LDL greater than 189 mg/dl Very High Performed By: #### C MP, LIPD, TSH, CBCAD, FT4 #### [facility] [address], [place] [id number] Cholesterol in VLDL [Mass/Vol] 22 mg/dL Normal [facility] Comment on above: Performed By: #### C MP, LIPD, TSH, CBCAD, FT4 #### [facility] [address], [place] [id number] Cholesterol.total/Chol esterol in HDL [Mass ratio] 2 {ratio} Normal [place] Abstract Manager Comment on above: Performed By: #### C MP, LIPD, TSH, CBCAD, FT4 #### [facility] [address], [place] [id number] Triglyceride [Mass/Vol] 110 mg/dL Normal 30-150 [facility] Abstract Manager Comment on above: Result Comment: TRIG ATPIII CLASSIFICATIONS TRIG less than 150 mg/dl Normal TRIG 150-199 mg/dl Borderline High TRIG 200-500 mg/dl High TRIG greather than 500 mg/dl Very High Performed By: #### C MP, LIPD, TSH, CBCAD, FT4 #### [facility] [address], [place] [id number] PSA SCREEN (MEDICARE)on 07-22 TPSA 1.270 ng/mL Normal <4.000 [facility] Abstract Manager Comment on above: Result Comment: PSA Test Method: ECLIA/Racquel e 601 Performed By: #### P SA #### [facility] [address], [place] [id number] TSHon 08-18-2021 TSH 4.190 uIU/mL Normal 0.400-4.50 0 [facility] Abstract Manager Comment on above: Performed By: #### C MP, LIPD, TSH, CBCAD, FT4 #### [facility] [address], [place] [id number] Covid-19 PCR ([facility])on 03-23 SARS-CoV-2 (COVID-19) RNA JAYDE+probe Ql (Unsp spec) Detected Critically abnormal NOT DETECTED [facility] Comment on above: Result Comment: This test is not yet approved or cleared by the [place] FDA. When there are no FDA-approved or cleared tests available, and other criteria are met, FDA can make tests available under an emergency access mechanism called an Emergency Use Authorization (EUA). The EUA for this test is supported by the [place] of Health and Human Service's (HHS's) declaration [...] longer be used). Performed By: #### C [facility] #### [facility] [address] [place] [address] Jalyn Noble US JO ANN DOP LEG [...] by: JORDAN RUTLEDGE Date: 2021-02-09 16:35 Normal [facility] Vital Signs Date Time Vital Sign Value Performing Clinician Facility 05-22-2025 14:33-0400 Body height 172.7 cm Leela Bocanegra COMPUTER CUSTOMER SUPPORT SPECIALIST Work Phone: [facility] 05-22-2025 14:33-0400 Body mass index (BMI) [Ratio] 45.31 kg/m2 Leela Bocanegra COMPUTER CUSTOMER SUPPORT SPECIALIST Work Phone: [facility] 05-22-2025 14:33-0400 Body weight 135.17 kg Leela Bocanegra COMPUTER CUSTOMER SUPPORT SPECIALIST Work Phone: [facility] 05-22-2025 14:33-0400 Diastolic blood pressure 64 mm[Hg] Leela Bocanegra COMPUTER CUSTOMER SUPPORT SPECIALIST Work Phone: [facility] 05-22-2025 14:33-0400 Heart rate 80 /min Leela Bocanegra COMPUTER CUSTOMER SUPPORT SPECIALIST Work Phone: [facility] 05-22-2025 14:33-0400 Respiratory rate 17 /min Leela Bocanegra COMPUTER CUSTOMER SUPPORT SPECIALIST Work Phone: [facility] 05-22-2025 14:33-0400 SaO2% (BldA) [Mass fraction] 94 % Leela Bocanegra COMPUTER CUSTOMER SUPPORT SPECIALIST Work Phone: [facility] 05-22-2025 14:33-0400 Systolic blood pressure 136 mm[Hg] Leela Bocanegra NP Work Phone: [facility] 05-05-2025 13:34-0400 Body weight 137.43 kg Komal Schaffer II Work Phone: [facility] 05-05-2025 13:34-0400 Diastolic blood pressure 98 mm[Hg] Komal Schaffer II Work Phone: [facility] 05-05-2025 13:34-0400 Heart rate 105 /min Komal Schaffer II Work Phone: [facility] 05-05-2025 13:34-0400 SaO2% (BldA) [Mass fraction] 94 % Komal Schaffer II Work Phone: [facility] 05-05-2025 13:34-0400 Systolic blood pressure 176 mm[Hg] Komal Schaffer II Work Phone: [facility] 04-24-2025 14:34-0400 Body height 172.7 cm Real Og DPM Work Phone: [facility] 04-24-2025 14:34-0400 Body mass index (BMI) [Ratio] 47.14 kg/m2 Real Og DPM Work Phone: [facility] 04-24-2025 14:34-0400 Body weight 140.62 kg Real Earle DPM Work Phone: [facility] 04-24-2025 14:34-0400 Respiratory rate 16 /min Real Earle DPM Work Phone: [facility] 04-01-2025 11:37-0400 Body height 172.7 cm Leela Bocanegra COMPUTER CUSTOMER SUPPORT SPECIALIST Work Phone: [facility] 04-01-2025 11:37-0400 Body mass index (BMI) [Ratio] 47.14 kg/m2 Leela Bocanegra COMPUTER CUSTOMER SUPPORT SPECIALIST Work Phone: [facility] 04-01-2025 11:37-0400 Body weight 140.62 kg Leela Bocanegra COMPUTER CUSTOMER SUPPORT SPECIALIST Work Phone: [facility] 04-01-2025 11:37-0400 Diastolic blood pressure 68 mm[Hg] Leela Catalanvely COMPUTER CUSTOMER SUPPORT SPECIALIST Work Phone: [facility] 04-01-2025 11:37-0400 Heart rate 80 /min Leela Daljit COMPUTER CUSTOMER SUPPORT SPECIALIST Work Phone: [facility] 04-01-2025 11:37-0400 Respiratory rate 17 /min Leela Daljit COMPUTER CUSTOMER SUPPORT SPECIALIST Work Phone: [facility] 04-01-2025 11:37-0400 SaO2% (BldA) [Mass fraction] 94 % Leela Mclaughlin COMPUTER CUSTOMER SUPPORT SPECIALIST Work Phone: [facility] 04-01-2025 11:37-0400 Systolic blood pressure 138 mm[Hg] Leela Daljit COMPUTER CUSTOMER SUPPORT SPECIALIST Work Phone: [facility] 03-18-2025 10:09-0400 Body height 172.72 cm Komal Schaffer II Work Phone: [facility] 03-18-2025 10:09-0400 Body mass index (BMI) [Ratio] 46.7 kg/m2 Komal Schaffer II Work Phone: [facility] 03-18-2025 10:09-0400 Body weight 139.4 kg Komal Schaffer II Work Phone: [facility] 02-18-2025 11:45-0400 Body height 172.7 cm Leela Catalanvely COMPUTER CUSTOMER SUPPORT SPECIALIST Work Phone: [facility] 02-18-2025 11:45-0400 Body mass index (BMI) [Ratio] 46.38 kg/m2 Leela Mclaughlin COMPUTER CUSTOMER SUPPORT SPECIALIST Work Phone: [facility] 02-18-2025 11:45-0400 Body weight 138.35 kg Leela Catalanvely COMPUTER CUSTOMER SUPPORT SPECIALIST Work Phone: [facility] 02-18-2025 11:45-0400 Diastolic blood pressure 78 mm[Hg] Leela Bocanegra COMPUTER CUSTOMER SUPPORT SPECIALIST Work Phone: [facility] 02-18-2025 11:45-0400 Heart rate 84 /min Leela Bocanegra COMPUTER CUSTOMER SUPPORT SPECIALIST Work Phone: [facility] 02-18-2025 11:45-0400 Respiratory rate 18 /min Leela Bocanegra COMPUTER CUSTOMER SUPPORT SPECIALIST Work Phone: [facility] 02-18-2025 11:45-0400 SaO2% (BldA) [Mass fraction] 94 % Leelashelley Bocanegra COMPUTER CUSTOMER SUPPORT SPECIALIST Work Phone: [facility] 02-18-2025 11:45-0400 Systolic blood pressure 124 mm[Hg] Leela Daljit COMPUTER CUSTOMER SUPPORT SPECIALIST Work Phone: [facility] 02-14-2025 15:29-0400 Body temperature 98.6 [degF] Komal Schaffer II Work Phone: [facility] 02-14-2025 15:29-0400 Diastolic blood pressure 64 mm[Hg] Komal Schaffer II Work Phone: [facility] 02-14-2025 15:29-0400 Heart rate 90 /min Komal Schaffer II Work Phone: [facility] 02-14-2025 15:29-0400 Respiratory rate 16 /min Komal Schaffer II Work Phone: [facility] 02-14-2025 15:29-0400 SaO2% (BldA) [Mass fraction] 95 % Komal Schaffer II Work Phone: [facility] 02-14-2025 15:29-0400 Systolic blood pressure 128 mm[Hg] Komal Schaffer II Work Phone: [facility] 02-14-2025 05:44-0400 Body weight 136.6 kg Komal Schaffer II Work Phone: [facility] 02-13-2025 20:43-0400 Body height 172.72 cm Komal Schaffer II Work Phone: [facility] 02-13-2025 20:19-0400 Body temperature 98.9 [degF] Komal Schaffer II Work Phone: [facility] 02-13-2025 20:19-0400 Diastolic blood pressure 80 mm[Hg] Komal Schaffer II Work Phone: [facility] 02-13-2025 20:19-0400 Heart rate 85 /min Komal Schaffer II Work Phone: [facility] 02-13-2025 20:19-0400 Respiratory rate 21 /min Komal Schaffer II Work Phone: [facility] 02-13-2025 20:19-0400 SaO2% (BldA) [Mass fraction] 95 % Komal Schaffer II Work Phone: [facility] 02-13-2025 20:19-0400 Systolic blood pressure 178 mm[Hg] Komal Schaffer II Work Phone: [facility] 02-13-2025 09:25-0400 Body height 172.72 cm Komal Schaffer II Work Phone: [facility] 02-13-2025 09:25-0400 Body weight 138.34 kg Komal Schaffer II Work Phone: [facility] 01-30-2025 15:04-0400 Body height 172.7 cm Real Og DPM Work Phone: [facility] 01-30-2025 15:04-0400 Body mass index (BMI) [Ratio] 45.92 kg/m2 Real Og DPM Work Phone: [facility] 01-30-2025 15:04-0400 Body weight 136.99 kg Real Og DPM Work Phone: [facility] 01-30-2025 15:04-0400 Respiratory rate 18 /min Real Og DPM Work Phone: [facility] 01-15-2025 09:59-0400 Body height 172.7 cm Willy Leyva APRN-ZIPPER SETTER Work Phone: [facility] 01-15-2025 09:59-0400 Body mass index (BMI) [Ratio] 46.83 kg/m2 Willy Leyva BOWLING ALLEY MANAGER-ZIPPER SETTER Work Phone: [facility] 01-15-2025 09:59-0400 Body weight 139.71 kg Willy Leyva BOWLING ALLEY MANAGER-ZIPPER SETTER Work Phone: [facility] 01-15-2025 09:59-0400 Diastolic blood pressure 56 mm[Hg] Willy Leyva BOWLING ALLEY MANAGER-ZIPPER SETTER Work Phone: [facility] 01-15-2025 09:59-0400 Heart rate 84 /min Willy Leyva BOWLING ALLEY MANAGER-ZIPPER SETTER Work Phone: [facility] 01-15-2025 09:59-0400 Systolic blood pressure 122 mm[Hg] Willy Leyva BOWLING ALLEY MANAGER-ZIPPER SETTER Work Phone: [facility] 01-06-2025 12:33-0400 Body mass index (BMI) [Ratio] 46.04 kg/m2 Christopher Chip DO Work Phone: [facility] 01-06-2025 12:33-0400 Body weight 137.35 kg Christopher Chip DO Work Phone: [facility] 01-06-2025 12:33-0400 Diastolic blood pressure 84 mm[Hg] Christopher Chip DO Work Phone: [facility] 01-06-2025 12:33-0400 Heart rate 106 /min Christopher Chip DO Work Phone: [facility] 01-06-2025 12:33-0400 SaO2% (BldA) [Mass fraction] 94 % Christopher Chip DO Work Phone: [facility] 01-06-2025 12:33-0400 Systolic blood pressure 150 mm[Hg] Christopher Chip DO Work Phone: [facility] 01-02-2025 16:24-0400 Body height 172.7 cm Real Og DPM Work Phone: [facility] 01-02-2025 16:24-0400 Body mass index (BMI) [Ratio] 46.38 kg/m2 Real Brown DPM Work Phone: [facility] 01-02-2025 16:24-0400 Body weight 138.35 kg Real Brown DPM Work Phone: [facility] 01-02-2025 16:24-0400 Respiratory rate 18 /min Real Brown DPM Work Phone: [facility] 12-12-2024 13:44-0400 Body height 172.7 cm Real Brown DPM Work Phone: [facility] 12-12-2024 13:44-0400 Body mass index (BMI) [Ratio] 46.38 kg/m2 Real Brown DPM Work Phone: [facility] 12-12-2024 13:44-0400 Body weight 138.35 kg Real Brown DPM Work Phone: [facility] 12-12-2024 13:44-0400 Respiratory rate 16 /min Real Brown DPM Work Phone: [facility] 12-05-2024 14:41-0400 Body height 172.7 cm Real Brown DPM Work Phone: [facility] 12-05-2024 14:41-0400 Body mass index (BMI) [Ratio] 46.38 kg/m2 Real Brown DPM Work Phone: [facility] 12-05-2024 14:41-0400 Body weight 138.35 kg Real Brown DPM Work Phone: [facility] 12-05-2024 14:41-0400 Respiratory rate 18 /min Real Brown DPM Work Phone: [facility] 12-05-2024 13:59-0400 Body height 172.7 cm Leela Bocanegra NP Work Phone: [facility] 12-05-2024 13:59-0400 Body mass index (BMI) [Ratio] 46.44 kg/m2 Leela Bocanegra COMPUTER CUSTOMER SUPPORT SPECIALIST Work Phone: [facility] 12-05-2024 13:59-0400 Body weight 138.53 kg Leela Bocanegra COMPUTER CUSTOMER SUPPORT SPECIALIST Work Phone: [facility] 12-05-2024 13:59-0400 Diastolic blood pressure 78 mm[Hg] Leela Bocanegra COMPUTER CUSTOMER SUPPORT SPECIALIST Work Phone: [facility] 12-05-2024 13:59-0400 Heart rate 95 /min Leela Bocanegra COMPUTER CUSTOMER SUPPORT SPECIALIST Work Phone: [facility] 12-05-2024 13:59-0400 Respiratory rate 17 /min Leela Bocanegra COMPUTER CUSTOMER SUPPORT SPECIALIST Work Phone: [facility] 12-05-2024 13:59-0400 SaO2% (BldA) [Mass fraction] 95 % Leela Bocanegra COMPUTER CUSTOMER SUPPORT SPECIALIST Work Phone: [facility] 12-05-2024 13:59-0400 Systolic blood pressure 132 mm[Hg] Leela Bocanegra COMPUTER CUSTOMER SUPPORT SPECIALIST Work Phone: [facility] 11-21-2024 14:45-0400 Body height 172.7 cm Real Og DPM Work Phone: [facility] 11-21-2024 14:45-0400 Body mass index (BMI) [Ratio] 48.05 kg/m2 Real Og DPM Work Phone: [facility] 11-21-2024 14:45-0400 Body weight 143.34 kg Real Og DPM Work Phone: [facility] 11-21-2024 14:45-0400 Respiratory rate 18 /min Real Og DPM Work Phone: [facility] 11-04-2024 11:39-0400 Body height 172.7 cm Willy Leyva BOWLING ALLEY MANAGER-ZIPPER SETTER Work Phone: [facility] 11-04-2024 11:39-0400 Body mass index (BMI) [Ratio] 47.74 kg/m2 Willy Leyva BOWLING ALLEY MANAGER-ZIPPER SETTER Work Phone: [facility] 11-04-2024 11:39-0400 Body weight 142.43 kg Willy Leyva BOWLING ALLEY MANAGER-ZIPPER SETTER Work Phone: [facility] 11-04-2024 11:39-0400 Diastolic blood pressure 84 mm[Hg] Willy Leyva BOWLING ALLEY MANAGER-ZIPPER SETTER Work Phone: [facility] 11-04-2024 11:39-0400 Heart rate 64 /min Willy Leyva BOWLING ALLEY MANAGER-ZIPPER SETTER Work Phone: [facility] 11-04-2024 11:39-0400 Systolic blood pressure 166 mm[Hg] Willy Leyva BOWLING ALLEY MANAGER-ZIPPER SETTER Work Phone: [facility] 10-11-2024 15:02-0500 Body height 172.7 cm [facility] 10-11-2024 15:02-0500 Body mass index (BMI) [Ratio] 47.14 kg/m2 [facility] 15:02-0500 Body weight 140.62 kg [facility] 10-11-2024 15:02-0500 Diastolic blood pressure 80 mm[Hg] [facility]-11-[facility] 15:02-0500 Heart rate 63 /min [facility] 10-11-2024 15:02-0500 Systolic blood pressure 148 mm[Hg] [facility] 10-09-2024 10:03-0500 Body height 172.7 cm Leela Bocanegra COMPUTER CUSTOMER SUPPORT SPECIALIST Work Phone: [facility] 10-09-2024 10:03-0500 Body mass index (BMI) [Ratio] 47.35 kg/m2 Leela Bocanegra COMPUTER CUSTOMER SUPPORT SPECIALIST Work Phone: [facility] 10-09-2024 10:03-0500 Body weight 141.25 kg Leela Bocanegra COMPUTER CUSTOMER SUPPORT SPECIALIST Work Phone: [facility] 10-09-2024 10:03-0500 Diastolic blood pressure 82 mm[Hg] Leela Bocanegra COMPUTER CUSTOMER SUPPORT SPECIALIST Work Phone: [facility] 10-09-2024 10:03-0500 Heart rate 46 /min Leela Bocanegra COMPUTER CUSTOMER SUPPORT SPECIALIST Work Phone: [facility] 10-09-2024 10:03-0500 Respiratory rate 17 /min Leela Bocanegra COMPUTER CUSTOMER SUPPORT SPECIALIST Work Phone: [facility] 10-09-2024 10:03-0500 SaO2% (BldA) [Mass fraction] 96 % Leela Bocanegra COMPUTER CUSTOMER SUPPORT SPECIALIST Work Phone: [facility] 10-09-2024 10:03-0500 Systolic blood pressure 186 mm[Hg] Leela Bocanegra COMPUTER CUSTOMER SUPPORT SPECIALIST Work Phone: [facility] 09-17-2024 14:47-0500 Body height 172.7 cm Aide Hemmer PA Work Phone: [facility] 09-17-2024 14:47-0500 Body mass index (BMI) [Ratio] 47.59 kg/m2 Aide Hemmer PA Work Phone: [facility] 09-17-2024 14:47-0500 Body weight 141.98 kg Aide Hemmer PA Work Phone: [facility] 09-17-2024 14:47-0500 Diastolic blood pressure 62 mm[Hg] Aide Hemmer PA Work Phone: [facility] 09-17-2024 14:47-0500 Heart rate 83 /min Aide Hemmer PA Work Phone: [facility] 09-17-2024 14:47-0500 Respiratory rate 18 /min Aide Hemmer PA Work Phone: [facility] 09-17-2024 14:47-0500 SaO2% (BldA) [Mass fraction] 93 % Aide Hemmer PA Work Phone: [facility] 09-17-2024 14:47-0500 Systolic blood pressure 106 mm[Hg] Aide Hemmer PA Work Phone: [facility] 09-13-2024 11:19-0500 Body temperature 98.5 [degF] Komal Schaffer II Work Phone: [facility] 09-13-2024 11:19-0500 Diastolic blood pressure 65 mm[Hg] Komal Schaffer II Work Phone: [facility] 09-13-2024 11:19-0500 Heart rate 76 /min Komal Schaffer II Work Phone: [facility] 09-13-2024 11:19-0500 Respiratory rate 16 /min Komal Schaffer II Work Phone: [facility] 09-13-2024 11:19-0500 SaO2% (BldA) [Mass fraction] 94 % Komal Schaffer II Work Phone: [facility] 09-13-2024 11:19-0500 Systolic blood pressure 147 mm[Hg] Komal Schaffer II Work Phone: [facility] 09-13-2024 06:00-0500 Body weight 137.5 kg Komal Schaffer II Work Phone: [facility] 09-12-2024 15:45-0500 Body height 172.72 cm Komal Schaffer II Work Phone: [facility] 09-12-2024 08:26-0500 Inhaled oxygen flow rate 2 L/min Komal Schaffer II Work Phone: [facility] 09-11-2024 16:44-0500 Diastolic blood pressure 81 mm[Hg] Komal Schaffer II Work Phone: [facility] 09-11-2024 16:44-0500 Heart rate 66 /min Komal Schaffer II Work Phone: [facility] 09-11-2024 16:44-0500 Inhaled oxygen flow rate 2 L/min Komal Schaffer II Work Phone: [facility] 09-11-2024 16:44-0500 Respiratory rate 22 /min Komal Schaffer II Work Phone: [facility] 09-11-2024 16:44-0500 SaO2% (BldA) [Mass fraction] 96 % Komal Schaffer II Work Phone: [facility] 09-11-2024 16:44-0500 Systolic blood pressure 196 mm[Hg] Komal Schaffer II Work Phone: [facility] 09-11-2024 09:52-0500 Body height 172.72 cm Komal Schaffer II Work Phone: [facility] 09-11-2024 09:52-0500 Body temperature 98.2 [degF] Komal Schaffer II Work Phone: [facility] 09-11-2024 09:52-0500 Body weight 139.7 kg Komal Schaffer II Work Phone: [facility] 07-31-2024 12:00-0500 Body temperature 98.2 [degF] Komal Schaffer II Work Phone: [facility] 07-31-2024 12:00-0500 Diastolic blood pressure 62 mm[Hg] Komal Schaffer II Work Phone: [facility] 07-31-2024 12:00-0500 Heart rate 60 /min Komal Schaffer II Work Phone: [facility] 07-31-2024 12:00-0500 Respiratory rate 16 /min Komal Schaffer II Work Phone: [facility] 07-31-2024 12:00-0500 SaO2% (BldA) [Mass fraction] 95 % Komal Schaffer II Work Phone: [facility] 07-31-2024 12:00-0500 Systolic blood pressure 128 mm[Hg] Komal Schaffer II Work Phone: [facility] 07-31-2024 05:53-0500 Body weight 136.3 kg Komal Schaffer II Work Phone: [facility] 07-28-2024 18:13-0500 Body height 172.72 cm Komal Schaffer II Work Phone: [facility] 07-24-2024 08:30-0500 Body height 172.7 cm Leela Bocanegra COMPUTER CUSTOMER SUPPORT SPECIALIST Work Phone: [facility] 07-24-2024 08:30-0500 Body mass index (BMI) [Ratio] 46.5 kg/m2 Leela Catalanvely COMPUTER CUSTOMER SUPPORT SPECIALIST Work Phone: [facility] 07-24-2024 08:30-0500 Body weight 138.71 kg Leela Mclaughlin COMPUTER CUSTOMER SUPPORT SPECIALIST Work Phone: [facility] 07-24-2024 08:30-0500 Diastolic blood pressure 82 mm[Hg] Leela Bocanegra COMPUTER CUSTOMER SUPPORT SPECIALIST Work Phone: [facility] 07-24-2024 08:30-0500 Heart rate 63 /min Leela Bocanegra COMPUTER CUSTOMER SUPPORT SPECIALIST Work Phone: [facility] 07-24-2024 08:30-0500 Respiratory rate 18 /min Leela Bocanegra COMPUTER CUSTOMER SUPPORT SPECIALIST Work Phone: [facility] 07-24-2024 08:30-0500 SaO2% (BldA) [Mass fraction] 93 % Leela Bocanegra COMPUTER CUSTOMER SUPPORT SPECIALIST Work Phone: [facility] 07-24-2024 08:30-0500 Systolic blood pressure 122 mm[Hg] Leela Bocanegra COMPUTER CUSTOMER SUPPORT SPECIALIST Work Phone: [facility] 07-12-2024 12:00-0500 Body temperature 98.6 [degF] Komal Schaffer II Work Phone: [facility] 07-12-2024 12:00-0500 Diastolic blood pressure 79 mm[Hg] Komal Schaffer II Work Phone: [facility] 07-12-2024 12:00-0500 Heart rate 76 /min Komal Schaffer II Work Phone: [facility] 07-12-2024 12:00-0500 Respiratory rate 20 /min Komal Schaffer II Work Phone: [facility] 07-12-2024 12:00-0500 SaO2% (BldA) [Mass fraction] 99 % Komal Schaffer II Work Phone: [facility] 07-12-2024 12:00-0500 Systolic blood pressure 171 mm[Hg] Komal Schaffer II Work Phone: [facility] 07-12-2024 06:00-0500 Body weight 137.4 kg Komal Schaffer II Work Phone: [facility] 07-10-2024 14:42-0500 Body height 172.72 cm Komal Schaffer II Work Phone: [facility] 07-10-2024 08:28-0500 Inhaled oxygen flow rate 2 L/min Komal Schaffer II Work Phone: [facility] 07-09-2024 20:09-0500 Diastolic blood pressure 74 mm[Hg] Komal Schaffer II Work Phone: [facility] 07-09-2024 20:09-0500 Heart rate 57 /min Komal Schaffer II Work Phone: [facility] 07-09-2024 20:09-0500 Respiratory rate 18 /min Komal Schaffer II Work Phone: [facility] 07-09-2024 20:09-0500 SaO2% (BldA) [Mass fraction] 95 % Komal Schaffer II Work Phone: [facility] 07-09-2024 20:09-0500 Systolic blood pressure 168 mm[Hg] Komal Schaffer II Work Phone: [facility] 07-09-2024 18:53-0500 Body height 172.72 cm Komal Schaffer II Work Phone: [facility] 07-09-2024 18:53-0500 Body weight 139.7 kg Komal Schaffer II Work Phone: [facility] 07-09-2024 15:52-0500 Body temperature 98.9 [degF] Komal Schaffer II Work Phone: [facility] 07-04-2024 05:48-0500 Diastolic blood pressure 75 mm[Hg] Komal Schaffer II Work Phone: [facility] 07-04-2024 05:48-0500 Systolic blood pressure 133 mm[Hg] Komal Schaffer II Work Phone: [facility] 07-04-2024 05:05-0500 Body weight 140.3 kg Komal Schaffer II Work Phone: [facility] 07-04-2024 05:00-0500 Body temperature 97.4 [degF] Komal Schaffer II Work Phone: [facility] 07-04-2024 05:00-0500 Heart rate 64 /min Komal Schaffer II Work Phone: [facility] 07-04-2024 05:00-0500 Respiratory rate 16 /min Komal Schaffer II Work Phone: [facility] 07-04-2024 05:00-0500 SaO2% (BldA) [Mass fraction] 95 % Komal Schaffer II Work Phone: [facility] 07-03-2024 07:59-0500 Body height 172.72 cm Komal Schaffer II Work Phone: [facility] 06-22-2024 11:25-0400 Diastolic blood pressure 71 mm[Hg] II Komal Schaffer Work Phone: [facility] 06-22-2024 11:25-0400 Heart rate 54 /min II Komal Schaffer Work Phone: [facility] 06-22-2024 11:25-0400 Respiratory rate 18 /min II Komalescobar Schaffer Work Phone: [facility] 06-22-2024 11:25-0400 SaO2% (BldA) [Mass fraction] 97 % II Komal Schaffer Work Phone: [facility] 06-22-2024 11:25-0400 Systolic blood pressure 112 mm[Hg] II Komal Schaffer Work Phone: [facility] 06-22-2024 08:00-0400 Body temperature 97.4 [degF] II Komal Schaffer Work Phone: [facility] 06-22-2024 05:35-0400 Body weight 140.6 kg II Komal Schaffer Work Phone: [facility] 06-20-2024 14:56-0400 Body height 172.72 cm II Komal Schaffer Work Phone: [facility] 06-19-2024 23:54-0400 Inhaled oxygen concentration 21 % II Komal Schaffer Work Phone: [facility] 06-19-2024 14:41-0400 Body height 172.72 cm II Komal Schaffer Work Phone: [facility] 06-19-2024 14:41-0400 Body temperature 98 [degF] II Komal Schaffer Work Phone: [facility] 06-19-2024 14:41-0400 Body weight 143.6 kg II Komal Schaffer Work Phone: [facility] 06-19-2024 14:41-0400 Diastolic blood pressure 74 mm[Hg] II Komal Schaffer Work Phone: [facility] 06-19-2024 14:41-0400 Heart rate 59 /min II Komal Schaffer Work Phone: [facility] 06-19-2024 14:41-0400 Respiratory rate 16 /min II Komal Schaffer Work Phone: [facility] 06-19-2024 14:41-0400 SaO2% (BldA) [Mass fraction] 96 % II Komal Schaffer Work Phone: [facility] 06-19-2024 14:41-0400 Systolic blood pressure 175 mm[Hg] II Komal Schaffer Work Phone: [facility] 06-13-2024 14:10-0400 Body height 172.7 cm Real Og DPM Work Phone: [facility] 06-13-2024 14:10-0400 Body mass index (BMI) [Ratio] 49.42 kg/m2 Real Og DPM Work Phone: [facility] 06-13-2024 14:10-0400 Body weight 147.42 kg Real Og DPM Work Phone: [facility] 06-13-2024 14:10-0400 Diastolic blood pressure 79 mm[Hg] Real Og DPM Work Phone: [facility] 06-13-2024 14:10-0400 Heart rate 84 /min Real Og DPM Work Phone: [facility] 06-13-2024 14:10-0400 Systolic blood pressure 126 mm[Hg] Real Og DPM Work Phone: [facility] 05-27-2024 12:55-0400 Body mass index (BMI) [Ratio] 49.42 kg/m2 Christopher Chip DO Work Phone: [facility] 05-27-2024 12:55-0400 Body weight 147.42 kg Christopher Chip DO Work Phone: [facility] 05-27-2024 12:55-0400 Diastolic blood pressure 85 mm[Hg] Christopher Chip DO Work Phone: [facility] 05-27-2024 12:55-0400 Heart rate 75 /min Christopher Chip DO Work Phone: [facility] 05-27-2024 12:55-0400 SaO2% (BldA) [Mass fraction] 90 % Christopher Chip DO Work Phone: [facility] 05-27-2024 12:55-0400 Systolic blood pressure 137 mm[Hg] Christopher Chip DO Work Phone: [facility] 02-12-2024 17:05-0400 Diastolic blood pressure 69 mm[Hg] II Komal Schaffer Work Phone: [facility] 02-12-2024 17:05-0400 Heart rate 53 /min II Komal Schaffer Work Phone: [facility] 02-12-2024 17:05-0400 Respiratory rate 22 /min II Komal Schaffer Work Phone: [facility] 02-12-2024 17:05-0400 SaO2% (BldA) [Mass fraction] 98 % II Komal Schaffer Work Phone: [facility] 02-12-2024 17:05-0400 Systolic blood pressure 156 mm[Hg] II Komal Schaffer Work Phone: [facility] 02-12-2024 13:33-0400 Body height 172.72 cm II Komal Schaffer Work Phone: [facility] 02-12-2024 13:33-0400 Body temperature 98.1 [degF] II Komal Schaffer Work Phone: [facility] 02-12-2024 13:33-0400 Body weight 142.3 kg II Komal Schaffer Work Phone: [facility] 10-05-2023 13:16-0500 Body height 177.8 cm Komal Schaffer MD Work Phone: [facility] 10-05-2023 13:16-0500 Body mass index (BMI) [Ratio] 45.2 kg/m2 Komal Schaffer MD Work Phone: [facility] 10-05-2023 13:16-0500 Body weight 142.88 kg Komal Schaffer MD Work Phone: [facility] 10-05-2023 13:16-0500 Diastolic blood pressure 82 mm[Hg] Komal Schaffer MD Work Phone: [facility] 10-05-2023 13:16-0500 Heart rate 58 /min Komal Schaffer MD Work Phone: [facility] 10-05-2023 13:16-0500 SaO2% (BldA) [Mass fraction] 96 % Komal Schaffer MD Work Phone: [facility] 10-05-2023 13:16-0500 Systolic blood pressure 134 mm[Hg] Komal Schaffer MD Work Phone: [facility] 09-20-2023 12:13-0500 Body height 172.7 cm Baltazar Hoover DO Work Phone: [facility] 09-20-2023 12:13-0500 Body mass index (BMI) [Ratio] 47.59 kg/m2 Baltazar Hoover DO Work Phone: [facility] 09-20-2023 12:130500 Body weight 141.98 kg Baltazar Hoover DO Work Phone: [facility] 09-20-2023 12:13-0500 Diastolic blood pressure 74 mm[Hg] Baltazar Hoover DO Work Phone: [facility] 09-20-2023 12:13-0500 Heart rate 53 /min Baltazar Hoover DO Work Phone: [facility] 09-20-2023 12:13-0500 Systolic blood pressure 130 mm[Hg] Baltazar Hoover DO Work Phone: [facility] 06-10-2023 05:00-0400 Body temperature 97.2 [degF] II Komal Schfafer Work Phone: [facility] 06-10-2023 05:00-0400 Diastolic blood pressure 70 mm[Hg] II Komal Schaffer Work Phone: [facility] 06-10-2023 05:00-0400 Heart rate 57 /min GEOVANY Schaffer Work Phone: [facility] 06-10-2023 05:00-0400 Respiratory rate 18 /min II Komal Schaffer Work Phone: [facility] 06-10-2023 05:00-0400 SaO2% (BldA) [Mass fraction] 95 % II Komal Schaffer Work Phone: [facility] 06-10-2023 05:00-0400 Systolic blood pressure 145 mm[Hg] II Komal Schaffer Work Phone: [facility] 06-06-2023 12:31-0400 Body height 172.72 cm II Komal Schaffer Work Phone: [facility] 06-04-2023 06:00-0400 Body weight 138.9 kg II Komal cShaffer Work Phone: [facility] 05-25-2023 00:00-0400 Inhaled oxygen flow rate 2 L/min II Komal Schaffer Work Phone: [facility] 05-21-2023 13:47-0400 Body temperature 98.4 [degF] II Komal Schaffer Work Phone: [facility] 05-21-2023 13:47-0400 Diastolic blood pressure 82 mm[Hg] II Komal Schaffer Work Phone: [facility] 05-21-2023 13:47-0400 Heart rate 60 /min II Komal Schaffer Work Phone: [facility] 05-21-2023 13:47-0400 Inhaled oxygen flow rate 2 L/min II Komal Schaffer Work Phone: [facility] 05-21-2023 13:47-0400 Respiratory rate 20 /min II Komal Schaffer Work Phone: [facility] 05-21-2023 13:47-0400 SaO2% (BldA) [Mass fraction] 94 % II Komal Schaffer Work Phone: [facility] 05-21-2023 13:47-0400 Systolic blood pressure 145 mm[Hg] II Komal Schaffer Work Phone: [facility] 05-21-2023 05:35-0400 Body weight 145 kg II Komal Schaffer Work Phone: [facility] 05-18-2023 12:18-0400 Body height 175.26 cm II Komal Schaffer Work Phone: [facility] 05-15-2023 18:00-0400 Inhaled oxygen concentration 4 % II Komal Schaffer Work Phone: [facility] 10-18-2022 08:30-0500 Body temperature 97.59 [degF] Honorio Vuong MD Work Phone: [facility] 10-18-2022 08:30-0500 Diastolic blood pressure 81 mm[Hg] Honorio Vuong MD Work Phone: [facility] 10-18-2022 08:30-0500 Heart rate 75 /min Honorio Vuong MD Work Phone: [facility] 10-18-2022 08:30-0500 Respiratory rate 20 /min Honorio Vuong MD Work Phone: [facility] 10-18-2022 08:30-0500 SaO2% (BldA) [Mass fraction] 95 % Honorio Vuong MD Work Phone: [facility] 10-18-2022 08:30-0500 Systolic blood pressure 150 mm[Hg] Honorio Vuong MD Work Phone: [facility] 10-17-2022 06:00-0500 Body mass index (BMI) [Ratio] 48.42 kg/m2 Honorio Vuong MD Work Phone: [facility] 10-17-2022 06:00-0500 Body weight 144.44 kg Honorio Vuong MD Work Phone: [facility] 10-15-2022 19:51-0500 Body height 172.7 cm Honorio Vuong MD Work Phone: [facility] 09-07-2022 11:23-0500 Body height 172.72 cm Willy Leyva BOWLING ALLEY MANAGER-ZIPPER SETTER Work Phone: [facility] DO Work Phone: 09-07-2022 11:23-0500 Body mass index (BMI) [Ratio] 49.72 kg/m2 Willy Grijalvakwasi Leyva BOWLING ALLEY MANAGER-ZIPPER SETTER Work Phone: [facility] [address] DO Work Phone: 09-07-2022 11:23-0500 Body surface area Derived from formula 2.52 m2 Willy Talon Leyva BOWLING ALLEY MANAGER-ZIPPER SETTER Work Phone: [facility] DO Work Phone: 09-07-2022 11:23-0500 Body weight 148.33 kg Willy Grijalvakwasi Leyva BOWLING ALLEY MANAGER-ZIPPER SETTER Work Phone: [facility] DO Work Phone: 09-07-2022 11:23-0500 Diastolic blood pressure 78 mm[Hg] Willy Grijalvakwasi Leyva BOWLING ALLEY MANAGER-ZIPPER SETTER Work Phone: [facility] DO Work Phone: 09-07-2022 11:23-0500 Heart rate 64 /min Willy Talon Leyva BOWLING ALLEY MANAGER-ZIPPER SETTER Work Phone: [facility] DO Work Phone: 09-07-2022 11:23-0500 Systolic blood pressure 122 mm[Hg] Willy Talon Leyva BOWLING ALLEY MANAGER-ZIPPER SETTER Work Phone: [facility] DO Work Phone: 05-06-2022 12:45-0400 Body weight 148.19 kg Celso Peñaloza MD, PhD Work Phone: [facility] 05-06-2022 12:45-0400 Diastolic blood pressure 55 mm[Hg] Celso Peñaloza MD, PhD Work Phone: [facility] 05-06-2022 12:45-0400 Heart rate 67 /min Celso Peñaloza MD, PhD Work Phone: [facility] 05-06-2022 12:45-0400 Systolic blood pressure 132 mm[Hg] Celso Peñaloza MD, PhD Work Phone: [facility] 03-29-2022 11:04-0400 Blood Pressure Location Yoko Leyva Jr. [facility] 03-29-2022 11:04-0400 Diastolic blood pressure 80 mm[Hg] Yoko Leyva Jr. [facility] 03-29-2022 11:04-0400 Heart rate 108 /min Yoko Leyva Jr. [facility] 03-29-2022 11:04-0400 Respiratory rate 16 /min Yoko Leyva Jr. [facility] 03-29-2022 11:04-0400 Systolic blood pressure 126 mm[Hg] Yoko Leyva Jr. [facility] 03-03-2022 12:59-0400 Blood Pressure Location Yoko Leyva Jr. [facility] 03-03-2022 12:59-0400 Body temperature 97.88 [degF] Yoko Leyva Jr. [facility] 03-03-2022 12:59-0400 BP/Pulse Patient Position Yoko Leyva Jr. [facility] 03-03-2022 12:59-0400 Diastolic blood pressure 60 mm[Hg] Yoko Leyva Jr. [facility] 03-03-2022 12:59-0400 Heart rate 62 /min Yoko Leyva Jr. [facility] 03-03-2022 12:59-0400 Mean blood pressure 74 mm[Hg] Yoko Leyva Jr. [facility] 03-03-2022 12:59-0400 Respiratory rate 16 /min Yoko Leyva Jr. [facility] 03-03-2022 12:59-0400 SaO2% (BldA) [Mass fraction] 97 % Yoko Leyva Jr. [facility] 03-03-2022 12:59-0400 Systolic blood pressure 100 mm[Hg] Yoko Leyva Jr. [facility] 03-03-2022 12:04-0400 Body temperature 98.06 [degF] Yoko Leyva Jr. [facility] 03-03-2022 12:04-0400 Diastolic blood pressure 60 mm[Hg] Yoko Leyva Jr. [facility] 03-03-2022 12:04-0400 Heart rate 63 /min Yoko Leyva Jr. [facility] 03-03-2022 12:04-0400 Mean blood pressure 76 mm[Hg] Yoko Leyva Jr. [facility] 03-03-2022 12:04-0400 SaO2% (BldA) [Mass fraction] 94 % Yoko Leyva Jr. [facility] 03-03-2022 12:04-0400 Systolic blood pressure 106 mm[Hg] Yoko Leyva Jr. [facility] 03-03-2022 11:50-0400 Blood Pressure Location Yoko Leyva Jr. [facility] 03-03-2022 11:50-0400 Body temperature 97.52 [degF] Yoko Leyva Jr. [facility] 03-03-2022 11:50-0400 Diastolic blood pressure 70 mm[Hg] Yoko Leyva Jr. [facility] 03-03-2022 11:50-0400 Heart rate 58 /min Ykoo Leyva Jr. [facility] 03-03-2022 11:50-0400 Respiratory rate 10 /min Yoko Leyva Jr. [facility] 03-03-2022 11:50-0400 SaO2% (BldA) [Mass fraction] 95 % Yoko Leyva Jr. [facility] 03-03-2022 11:50-0400 Systolic blood pressure 141 mm[Hg] Yoko Leyva Jr. [facility] 03-03-2022 11:40-0400 Blood Pressure Location Yoko Leyva Jr. [facility] 03-03-2022 11:40-0400 Respiratory rate 17 /min Yoko Leyva Jr. [facility] 03-03-2022 11:35-0400 Respiratory rate 11 /min Yoko Leyva Jr. [facility] 03-03-2022 11:25-0400 Body temperature 97.16 [degF] Yoko Leyva Jr. [facility] 03-03-2022 11:20-0400 Respiratory rate 26 /min Yoko Leyva Jr. [facility] 03-03-2022 11:15-0400 Respiratory rate 19 /min Yoko Leyva Jr. [facility] 03-03-2022 08:04-0400 Mean blood pressure 86 mm[Hg] Yoko Leyva Jr. [facility] 03-03-2022 08:04-0400 Body temperature 98.42 [degF] Yoko Leyva Jr. [facility] 03-03-2022 08:04-0400 Heart rate 68 /min Yoko Leyva Jr. [facility] 02-17-2022 13:43-0400 Blood Pressure Location Yoko Leyva Jr. [facility] 02-17-2022 13:43-0400 Diastolic blood pressure 69 mm[Hg] Yoko Leyva Jr. [facility] 02-17-2022 13:43-0400 Systolic blood pressure 162 mm[Hg] Yoko Leyva Jr. [facility] 02-17-2022 13:30-0400 Blood Pressure Location Yoko Leyva Jr. [facility] 02-17-2022 13:30-0400 BP/Pulse Patient Position Yoko Leyva Jr. [facility] 02-17-2022 13:30-0400 Diastolic blood pressure 52 mm[Hg] Yoko Leyva Jr. [facility] 02-17-2022 13:30-0400 Heart rate 68 /min Yoko Leyva Jr. [facility] 02-17-2022 13:30-0400 Mean blood pressure 84 mm[Hg] Yoko Leyva Jr. [facility] 02-17-2022 13:30-0400 Respiratory rate 24 /min Yoko Leyva Jr. [facility] 02-17-2022 13:30-0400 SaO2% (BldA) [Mass fraction] 92 % Yoko Leyva Jr. [facility] 02-17-2022 13:30-0400 Systolic blood pressure 149 mm[Hg] Yoko Leyva Jr. [facility] 02-17-2022 13:30-0400 Body temperature 99.32 [degF] Yoko Leyva Jr. [facility] 02-01-2022 11:14-0400 Blood Pressure Location Yoko Leyva Jr. [facility] 02-01-2022 11:14-0400 Diastolic blood pressure 43 mm[Hg] Yoko Leyva Jr. [facility] 02-01-2022 11:14-0400 Heart rate 72 /min Yoko Leyva Jr. [facility] 02-01-2022 11:14-0400 Respiratory rate 16 /min Yoko Leyva Jr. [facility] 02-01-2022 11:14-0400 Systolic blood pressure 133 mm[Hg] Yoko Leyva Jr. [facility] 12-27-2021 12:42-0400 Blood Pressure Location Yoko Leyva Jr. [facility] 12-27-2021 12:42-0400 Diastolic blood pressure 65 mm[Hg] Yoko Leyva Jr. [facility] 12-27-2021 12:42-0400 Heart rate 68 /min Yoko Leyva Jr. [facility] 12-27-2021 12:42-0400 Systolic blood pressure 115 mm[Hg] Yoko Leyva Jr. [facility] Encounters Encounter Date Encounter Type Care Provider Facility Start: 05-26-2025 End: 05-26-2025 ambulatory France Wyman MD Facility:[facility] Start: 05-22-2025 End: 05-22-2025 Office outpatient visit 15 minutes Leela Bocanegra COMPUTER CUSTOMER SUPPORT SPECIALIST Work Phone: [facility] Comment on above: Pain; Need for vaccination Start: 05-22-2025 End: 05-22-2025 ambulatory LEELA BOCANEGRA Not Available Start: 05-22-2025 End: 05-22-2025 Bamboo flowsheet Leela Bocanegra COMPUTER CUSTOMER SUPPORT SPECIALIST Work Phone: [facility] Start: 05-22-2025 End: 05-22-2025 Bamboo flowsheet Leela Bocanegra COMPUTER CUSTOMER SUPPORT SPECIALIST Work Phone: [facility] Start: 05-05-2025 End: 05-05-2025 ambulatory Komal Schaffer II Work Phone: [facility] Work Phone: Start: 05-05-2025 End: 05-05-2025 Patient encounter procedure Stanley Ceja DO -[facility] Work Phone: Start: 04-29-2025 End: 04-29-2025 ambulatory [...] 04-07-2025 End: 04-07-2025 ambulatory France Wyman MD Facility:[facility] Start: 04-01-2025 End: 04-01-2025 Bamboo flowsheet Leela Bocanegra COMPUTER CUSTOMER SUPPORT SPECIALIST Work Phone: [facility] Start: 04-01-2025 End: 04-01-2025 Bamboo flowsheet Leela Bocanegra COMPUTER CUSTOMER SUPPORT SPECIALIST Work Phone: [facility] Start: 04-01-2025 End: 04-01-2025 Office outpatient visit 15 minutes Leela Bocanegra COMPUTER CUSTOMER SUPPORT SPECIALIST Work Phone: [facility] Comment on above: Gross hematuria (Michelle galeana Dx); Lumbosacral spondylosis without myelopathy Start: 04-01-2025 End: 04-01-2025 Refill Leela Bocanegra COMPUTER CUSTOMER SUPPORT SPECIALIST Work Phone: [facility] Comment on above: Pain Start: 03-18-2025 End: 03-18-2025 ambulatory Komal Schaffer II Work Phone: [facility] Work Phone: Start: 03-18-2025 End: 03-18-2025 Patient encounter procedure Gucci Jacques MD -[facility] Work Phone: Start: 02-26-2025 End: 02-26-2025 Clinisync Result Encounter Leela Bocanegra COMPUTER CUSTOMER SUPPORT SPECIALIST Work Phone: [facility] Unsolicited Start: 02-26-2025 End: 02-26-2025 Clinisync Result Encounter Leela Bocanegra NP Work Phone: [facility] Unsolicited Start: 02-24-2025 End: 02-24-2025 Clinisync Result Encounter Generic External Data Provider [facility] Unsolicited Start: 02-24-2025 End: 02-24-2025 Clinisync Result Encounter Generic External Data Provider [facility] Unsolicited Start: 02-18-2025 End: 02-18-2025 Bamboo flowsheet Leela Bocanegra COMPUTER CUSTOMER SUPPORT SPECIALIST Work Phone: [facility] Start: 02-18-2025 End: 02-18-2025 Bamboo flowsheet Leela Bocanegra COMPUTER CUSTOMER SUPPORT SPECIALIST Work Phone: [facility] Start: 02-18-2025 End: 02-18-2025 Telephone encounter Leela Bocanegra COMPUTER CUSTOMER SUPPORT SPECIALIST Work Phone: [facility] Start: 02-18-2025 End: 02-18-2025 ambulatory LEELA BOCANEGRA Not Available Start: 02-18-2025 End: 02-18-2025 Office outpatient visit 25 minutes Leela Bocanegra COMPUTER CUSTOMER SUPPORT SPECIALIST Work Phone: [facility] Comment on above: Cellulitis of right lower extremity (Primary Dx); Muscle pain; Trigger middle finger of right hand; Pain Start: 02-13-2025 End: 02-14-2025 ambulatory Jamel Packer Facility:[facility] Start: 02-13-2025 Anticoagulant drug monitoring Jamel Packer -[facility] Work Phone: Start: 02-13-2025 Evaluation and management of inpatient Obaybharat Ceja MD -[facility] Work Phone: Start: 02-13-2025 observation encounter Komal kelly II Work Phone: [facility] Work Phone: Start: 01-30-2025 End: 01-30-2025 Patient encounter procedure Real Og DPM Work Phone: [facility] Comment on above: 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 (Primary Dx); Venous insufficiency Start: 01-30-2025 End: 01-30-2025 ambulatory REAL OG Not Available Start: 01-30-2025 End: 01-30-2025 Bamboo flowsheet Real Og DPM Work Phone: [facility] Start: 01-30-2025 End: 01-30-2025 Bamboo flowsheet Real Og DPM Work Phone: [facility] Start: 01-27-2025 End: 01-27-2025 ambulatory France Wyman MD Facility: [facility] Start: 01-15-2025 End: 01-15-2025 Office outpatient visit 15 minutes Willy [facility] BOWLING ALLEY MANAGER-ZIPPER SETTER Work Phone: [facility] Comment on above: BMI 45.0-49.9, adult (Multi) (Primary Dx); Localized edema Start: 01-15-2025 End: 01-15-2025 ambulatory [facility] Ambulatory Start: 01-06-2025 End: 01-06-2025 Bamboo [...] 25 minutes Real Og DPM Work Phone: [facility] Comment on above: Laceration of lesser toe of left foot without foreign body present, nail damage status unspecified, initial encounter (Primary Dx); Closed nondisplaced fracture of distal phalanx of left great toe, initial encounter; Venous insufficiency Start: 01-02-2025 End: 01-02-2025 ambulatory REAL OG Not Available Start: 01-02-2025 End: 01-02-2025 Bamboo flowsheet Real Og DPM Work Phone: [facility] Start: 01-02-2025 End: 01-02-2025 Bamboo flowsheet Real Og DPM Work Phone: [facility] Start: 12-30-2024 End: 12-30-2024 ambulatory France Wyman MD Facility:[facility] Start: 12-12-2024 End: 12-12-2024 Bamboo flowsheet Real Og DPM Work Phone: [facility] Start: 12-12-2024 End: 12-12-2024 Bamboo flowsheet Real Og DPM Work Phone: [facility] Start: 12-12-2024 End: 12-12-2024 Office outpatient visit 25 minutes Real Og DPM Work Phone: [facility] Comment on above: Laceration of lesser toe of left foot without foreign body present, nail damage status unspecified, initial encounter (Primary Dx); Closed nondisplaced fracture of distal phalanx of left great toe, initial encounter Start: 12-12-2024 End: 12-12-2024 ambulatory REAL OG Not Available Start: 12-05-2024 End: 12-05-2024 Bamboo flowsheet Leela Bocanegra COMPUTER CUSTOMER SUPPORT SPECIALIST Work Phone: [facility] Start: 12-05-2024 End: 12-05-2024 Bamboo flowsheet Leela Bocanegra COMPUTER CUSTOMER SUPPORT SPECIALIST Work Phone: [facility] Start: 12-05-2024 End: 12-05-2024 Office outpatient visit 25 minutes Real Og DPM Work Phone: [facility] Comment on above: Laceration of lesser [...] encounter procedure Real Og DPM Work Phone: [facility] Comment on above: 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 (Primary Dx); Venous insufficiency Start: 11-21-2024 End: 11-21-2024 ambulatory REAL OG Not Available Start: 11-21-2024 End: 11-21-2024 Bamboo flowsheet Real Og DPM Work Phone: [facility] Start: 11-21-2024 End: 11-21-2024 Bamboo flowsheet Real Og DPM Work Phone: [facility] Start: 11-11-2024 End: 11-11-2024 ambulatory [facility] Ambulatory Start: 11-04-2024 End: 11-04-2024 Office outpatient visit 25 minutes [facility] BOWLING ALLEY MANAGER-ZIPPER SETTER Work Phone: [facility] Comment on above: Localized edema (Michelle lissett Dx); Essential hypertension; BMI 45.0-49.9, adult (Multi); Paroxysmal atrial fibrillation (Multi) Start: 11-04-2024 End: 11-04-2024 ambulatory [facility] Ambulatory Start: 10-29-2024 End: 10-29-2024 ambulatory LEELA BOCANEGRA Not Available Start: 10-28-2024 End: 10-28-2024 ambulatory France Wyman MD Facility:[facility] Start: 10-22-2024 End: 10-22-2024 Clinisync Result Encounter Generic External Data Provider [facility] External Department Unsolicited Start: 10-22-2024 End: 10-22-2024 Clinisync Result Encounter Generic External Data Provider [facility] External Department Unsolicited Start: 10-21-2024 End: 10-21-2024 ambulatory France Wyman MD Facility:[facility] Start: 10-15-2024 End: 10-15-2024 Bamboo flowsheet Mookie Tamayo COMPUTER CUSTOMER SUPPORT SPECIALIST Work Phone: [facility] Start: 10-15-2024 End: 10-15-2024 Bamboo flowsheet Mookie Tamayo COMPUTER CUSTOMER SUPPORT SPECIALIST Work Phone: [facility] Start: 10-15-2024 End: 10-15-2024 ambulatory MOOKEI TAMAYO Not Available Start: 10-11-2024 End: 10-11-2024 Professional / ancillary services management Jimena Rice [facility] Comment on above: Paroxysmal atrial fi brillation (Multi) (Primary Dx); High risk medication use Start: 10-11-2024 End: 10-11-2024 ambulatory [facility] Ambulatory Start: 10-09-2024 End: 10-09-2024 Bamboo flowsheet Leela Bocanegra COMPUTER CUSTOMER SUPPORT SPECIALIST Work Phone: [facility] Start: 10-09-2024 End: 10-09-2024 Bamboo flowsheet Leela Bocanegra COMPUTER CUSTOMER SUPPORT SPECIALIST Work Phone: [facility] Start: 10-09-2024 End: 10-09-2024 Office outpatient visit 25 minutes Leela Bocanegra COMPUTER CUSTOMER SUPPORT SPECIALIST Work Phone: [facility] Comment on above: Benign essential hyp ertension (CMS/HCC) (Primary Dx); Yeast dermatitis; Bradycardia Start: 10-09-2024 End: 10-09-2024 ambulatory LEELA BOCANEGRA Not Available Start: 10-07-2024 End: 10-07-2024 ambulatory France Wyman MD Facility: [facility] Start: 09-24-2024 End: 09-24-2024 ambulatory [facility] Ambulatory Start: 09-18-2024 End: 09-18-2024 Telephone encounter Salmamonday FORMS DESIGNER Work Phone: [facility] Start: 09-17-2024 [...] 09-16-2024 End: 09-16-2024 ambulatory France Wyman MD Facility:[facility] Start: 09-11-2024 Evaluation and management of inpatient Komal Schaffer II Work Phone: [facility] Work Phone: Start: 09-11-2024 End: 09-13-2024 observation encounter Komal Schaffer II Work Phone: [facility] Work Phone: Start: 09-11-2024 End: 09-13-2024 Orders Only Leela Bocanegra COMPUTER CUSTOMER SUPPORT SPECIALIST Work Phone: [facility] Comment on above: Myasthenia gravis (C MS/HCC) Start: 09-11-2024 End: 09-13-2024 Komal Schaffer II Work Phone: [facility] [place] [facility] Work Phone: Start: 09-09-2024 End: 09-09-2024 ambulatory France Wyman MD Facility:[facility] Start: 07-31-2024 Komal Schaffer I I Work Phone: [facility] Palliative Work Phone: Start: 07-30-2024 Komal Schaffer I I Work Phone: [facility] Neurosurgery Work Phone: Start: 07-28-2024 End: 07-31-2024 Evaluation and management of inpatient Gucci Jacques Facility:[facility] Start: 07-28-2024 End: 07-31-2024 Komal Schaffer II Work Phone: [facility] [place] [facility] Work Phone: Start: 07-24-2024 End: 07-24-2024 Bamboo flowsheet Leela Bocanegra COMPUTER CUSTOMER SUPPORT SPECIALIST Work Phone: [facility] Start: 07-24-2024 End: 07-24-2024 Bamboo flowsheet Leela Bocanegra COMPUTER CUSTOMER SUPPORT SPECIALIST Work Phone: [facility] Start: 07-24-2024 End: 07-24-2024 Office outpatient visit 25 minutes Leela Bocanegra COMPUTER CUSTOMER SUPPORT SPECIALIST Work Phone: [facility] Comment on [...] of inpatient Komal Schaffer II Work Phone: [facility] [place] [facility] Work Phone: Start: 07-09-2024 End: 07-12-2024 Komal Schaffer II Work Phone: [facility] [place] [facility] Work Phone: Start: 07-01-2024 Non-patient / Non-visit Komal Schaffer II Work Phone: [facility] Work Phone: Start: 07-01-2024 Komal Schaffer I I Work Phone: [facility] Work Phone: Start: 06-24-2024 Non-patient / Non-visit Komal Schaffer II Work Phone: [facility] Work Phone: Start: 06-24-2024 Komal Schaffer I I Work Phone: [facility] Work Phone: Start: 06-22-2024 Non-patient / Non-visit Komal Schaffer II Work Phone: [facility] Work Phone: Start: 06-22-2024 End: 07-04-2024 Komal Schaffer II Work Phone: [facility] [place] [facility] Work Phone: Start: 06-22-2024 End: 07-04-2024 Evaluation and management of inpatient II Komal Schaffer Work Phone: [facility] [place] [facility] Work Phone: Start: 06-21-2024 Non-patient / Non-visit II Kenroy socristóbal Schaffer Work Phone: [facility] Work Phone: Start: 06-21-2024 Komal Schaffer I I Work Phone: [facility] Work Phone: Start: 06-19-2024 Non-patient / Non-visit II Kenroy Schaffer Work Phone: [facility] Pulmonary Disease Work Phone: Start: 06-19-2024 Komal Schaffer I I Work Phone: [facility] Pulmonary Work Phone: Start: 06-19-2024 End: 06-22-2024 Komal Schaffer II Work Phone: [facility] [place] [facility] Work Phone: Start: 06-19-2024 End: 06-22-2024 Evaluation and management of inpatient II Komal Schaffer Work Phone: [facility] [place] [facility] Work Phone: Start: 06-13-2024 End: [...] Bamboo flowsheet Stanley Saunders DO Work Phone: [facility] Start: 05-27-2024 End: 05-27-2024 Bamboo flowsheet Stanley Saunders DO Work Phone: [facility] Start: 05-27-2024 End: 05-27-2024 Office outpatient [...] II Komal Schaffer Work Phone: [facility]-Emergency Room Work Phone: Start: 10-05-2023 End: 10-05-2023 Assay of hemosiderin, quant Komal Schaffer MD Work Phone: [facility] Work Phone: Start: 10-05-2023 End: 10-05-2023 Patient encounter procedure Komal Schaffer MD Work Phone: [facility] Comment on above: Routine general medi nabila [...] gravis without (acute) exacerbation (G70.00); Atherosclerosis of [place] artery of both lower extremities with intermittent claudication (CMS/HCC); Morbid (severe) obesity due to excess calories (E66.01); Body mass index [BMI] 45.0-49.9, adult (Z68.42) Start: 10-04-2023 Bamboo flowsheet Alem Garcia TA [facility] Start: 10-04-2023 Bamboo flowsheet Alem Sampson P TA [facility] Start: 10-04-2023 End: 10-04-2023 ambulatory Alem Sampson SCALLOP CUTTER [facility] Comment on above: Bilateral leg weakne ss (Primary Dx); Difficulty walking; Right leg pain Start: 09-28-2023 End: 09-28-2023 ambulatory Anderson Ray SCALLOP CUTTER [facility] Comment on above: Bilateral leg weakne ss (Primary Dx); Difficulty walking; Right leg pain Start: 09-25-2023 Telephone encounter Komal kelly MD Work Phone: [facility] Start: 09-21-2023 End: 09-21-2023 ambulatory Anderson Ray SCALLOP CUTTER [facility] Comment on above: Bilateral [...] inpatient GEOVANY Schaffer Work Phone: [facility] [place] [facility] Work Phone: Start: 05-19-[address] Komal Schaffer II Facility:[id number] Start: 05-18-[address] Komal Schaffer II Facility:[id number] Start: 05-16-[address] Komal Schaffer II Facility:[id number] Start: 05-10-2023 End: 05-21-2023 Evaluation and management of inpatient II Komal Schaffer Work Phone: [facility] [place] [facility] Work Phone: Start: 03-09-2023 End: 03-09-2023 ambulatory II Komal Schaffer Work Phone: [facility] Work Phone: Start: 03-09-2023 End: 03-09-2023 Departed Referred II Komal Schaffer Work Phone: [facility] Start: 10-15-2022 End: 10-18-2022 Evaluation and management of inpatient KOMAL SCHAFFER [facility] Start: 10-15-2022 End: 10-18-2022 Evaluation and management of inpatient Honorio Vuong MD Work Phone: [facility] S[facility] Start: 09-07-2022 Office outpatient vi sit 25 minutes Willy Leyva BOWLING ALLEY MANAGER-ZIPPER SETTER Work Phone: [facility] 600 DO Work Phone: Start: 09-07-2022 Patient encounter procedure Willy Leyva BOWLING ALLEY MANAGER-ZIPPER SETTER Work Phone: [facility] 250 DO Work Phone: Start: 09-07-[address] Komal Schaffer II Facility: Start: 08-30-2022 End: 08-30-2022 ambulatory II Komal Schaffer Work Phone: [facility] Work Phone: Start: 08-30-2022 End: 08-30-2022 Departed Referred II Komal Schaffer Work Phone: [facility] Start: 06-28-2022 End: 06-28-2022 ambulatory II Komal Schaffer Work Phone: [facility] Work Phone: Start: 06-28-2022 End: 06-28-2022 Departed Referred II Komal Schaffer Work Phone: [facility] Start: 06-14-2022 End: 06-14-2022 ambulatory GEOVANY Schaffer Work Phone: [facility] Work Phone: Start: 06-14-2022 End: 06-14-2022 Departed Referred II Komal Schaffer Work Phone: [facility] Start: 05-06-2022 ambulatory Celso Peñaloza MD , PhD Work Phone: Urology Start: 05-06-2022 End: 05-06-2022 Patient encounter procedure Celso Peñaloza MD, PhD Work Phone: Urology Comment on above: Malignant neoplasm o f overlapping sites of bladder (HCC) (Primary Dx) Start: 03-29-2022 End: 03-30-2022 ambulatory Yoko Leyva Facility:[facility] Start: 03-29-2022 End: 03-29-2022 Patient encounter procedure Yoko Leyva Jr. [facility] Start: 03-29-2022 ambulatory Yoko Leyva Facility:[facility] Start: 03-03-2022 End: 03-03-2022 ambulatory Yoko Leyva Facility:[facility] Start: 03-03-2022 End: 03-03-2022 Admission to same day surgery center Yoko Leyva Jr. [facility] Start: 02-17-2022 End: 02-18-2022 ambulatory Yoko Leyva Facility:[facility] Start: 02-17-2022 End: 02-17-2022 Patient encounter procedure Yoko Leyva Jr. [facility] Start: 02-01-2022 End: 02-02-2022 ambulatory Yoko Leyva Facility:[facility] Start: 02-01-2022 End: 02-01-2022 Patient encounter procedure Yoko Leyva Jr. [facility] Start: 01-21-2022 End: 01-22-2022 ambulatory MASHA LEY Facility:[facility] Start: 01-21-2022 End: 01-21-2022 Lab Drop off MASHA LEY [facility] Start: 01-21-2022 End: 01-21-2022 Patient encounter procedure Yoko Leyva Jr. [facility] Start: 01-18-2022 End: 01-19-2022 ambulatory Yoko Leyva Facility:[facility] Start: 01-18-2022 End: 01-18-2022 Patient encounter procedure Yoko Leyva Jr. [facility] Start: 01-12-2022 End: 01-13-[address] YOKO LEYVA JR Facility:[facility] Start: 01-11-2022 Encounter for preprocedural cardiovascular examination DR YOKO LEVYA JR [facility] Start: 01-11-2022 Encounter for preprocedural laboratory examination DR YOKO LEYVA JR [facility] Start: 01-08-[address] YOKO LEYVA JR Fa cility:[facility] Start: 01-05-2022 End: 01-06-[address] YOKO LEYVA JR Facility:[facility] Start: 01-05-2022 End: 01-06-2022 Encounter for preprocedural cardiovascular examination DR YOKO LEYVA JR Facility: Start: 12-27-2021 End: 12-28-2021 ambulatory Yoko Leyva Facility:[facility] Start: 12-27-2021 End: 12-27-2021 Patient encounter procedure Yoko Leyva Jr. [facility] Start: 12-15-2021 End: 12-16-[address] YOKO LEYVA JR Facility:[facility] Start: 12-07-2021 ambulatory Yoko Leyva Facility:[facility] Start: 12-07-2021 End: 12-08-2021 ambulatory Yoko Leyva Facility:[facility] Start: 12-07-2021 End: 12-07-2021 Patient encounter procedure Yoko Leyva Jr. [facility] Start: 11-05-2021 ambulatory Yoko Leyva Facility:[facility] Start: 05-25-2021 End: 05-25-[address] KOMAL SCHAFFER Facility:[facility] Start: 04-19-2021 End: 04-20-[address] KOMAL SCHAFFER Facility:[facility] Start: 02-09-2021 End: 02-10-2021 ambulatory LEELA BOCANEGRA Facility:[facility] Start: 01-11-2018 Ambulatory BALTAZAR [facility] ity:[id number] Start: 01-08-2018 Ambulatory OLIVIA HALL Facility :[id number] Imaging result normal Willy Leyva BOWLING ALLEY MANAGER-ZIPPER SETTER Work Phone: [facility] 250 DO Work Phone: Procedures Date Procedure Procedure Detail Performing Clinician Start: 04-01-2025 Urnls dip stick/tabl et rgnt non-auto w/o micrscp Leela Bocanegra COMPUTER CUSTOMER SUPPORT SPECIALIST Work Phone: Start: 02-26-2025 ALL [facility] Leela alarcon COMPUTER CUSTOMER SUPPORT SPECIALIST Work Phone: Start: 02-26-2025 [facility] Leela alarcon COMPUTER CUSTOMER SUPPORT SPECIALIST Work Phone: Start: 02-24-2025 MR LUMBAR SPINE [...] - S [place] or Plasma Jimena Rice CORSETIER Start: 09-20-2023 Ecg routine ecg w/le ast [...] prostate Yoko Leyva Jr. Appendectomy Willy maravilla BOWLING ALLEY MANAGER-ZIPPER SETTER Work Phone: Cardiac catheterization Alondra Leyva Jr. Cardiac catheterization Amandeep Leyva BOWLING ALLEY MANAGER-ZIPPER SETTER Work Phone: Cataract surgery Willy Leyva BOWLING ALLEY MANAGER-ZIPPER SETTER Work Phone: Entire neck (body structure) Yoko Leyva JrRaul Comment on above: 2017 Excision of neoplasm Willy Leyva BOWLING ALLEY MANAGER-ZIPPER SETTER Work Phone: Comment on above: bladder; Extraction of cataract Horace Leyva JrRaul Procedure on neck Willy Leyva BOWLING ALLEY MANAGER-ZIPPER SETTER Work Phone: Total colonoscopy Willy Leyva BOWLING ALLEY MANAGER-ZIPPER SETTER Work Phone: Comment on above: PROCEDURE DATE 2007; Plan of Treatment Date Care Activity Detail Author Start: 09-25-2028 Lipid panel Lipid Panel [facility] Start: 11-08-2025 Creatinine measurement Creatinine Le chadwick [facility] Start: 11-08-2025 Potassium measurement Potassium Leve l [facility] Start: 09-25-2025 End: 09-25-2025 Patient encounter procedure 09/25/2025 2:10 PM EST Office Visit [facility] [address] [facility] [address] [place] [address] Baltazar Hoover DO [address] [facility] [address] [place] [address] [facility] Start: 07-03-2025 End: 07-03-2025 Patient encounter procedure 07/03/2025 2:40 PM EST Procedure Visit [facility] [address] [place] [id number] Real Og DPM [address] [facility] [address] [place] [address] [facility] Start: 05-22-2025 End: 05-22-2025 Patient encounter procedure 05/22/2025 2:30 PM EDT Office Visit [facility] [place] [facility] [address] [place] [address] Leela Bocanegra, ANAMARIA [address] [place], [place] [id number] Arrived KELSY Funez Comment on above: Arrived Start: 05-05-2025 End: 05-05-2025 Patient encounter procedure 05/05/2025 1:30 PM EDT Office Visit RANDE[facility] MEAD [address] [place] [address] Stanley Saunders DO [address] [place] [address] [facility] Start: 04-27-2025 DIABETES SCREEN DIABETES SCREEN [facility] Start: 04-24-2025 End: 04-24-2025 Patient encounter procedure [facility] Comment on above: 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 (Primary Dx); Venous insufficiency Start: 04-21-2025 Influenza vaccination [facility] Start: 04-10-2025 End: 04-10-2025 Patient encounter procedure 04/10/2025 3:10 PM EDT Procedure Visit [facility] [address] [facility] [address] [place] [address] Real Og DPM [address] [facility] [address] [place] [address] [facility] Start: 04-01-2025 End: 04-01-2025 Patient encounter procedure 04/01/2025 11:30 AM EDT Office Visit [facility] [address] [facility] [address] [place] [address] Leela Bocanegra COMPUTER CUSTOMER SUPPORT SPECIALIST [address] [facility] [address] [place] [address] Arrived KELSY Funez Comment on above: Arrived Start: 02-18-2025 End: 02-18-2026 CK total and CKMB CK total and CKMB Lab Routine Muscle pain Expected: 02/18/2025 (Approximate), Expires: 02/18/2026 [facility] Work Phone: Comment on above: Expected: 02/18/2025 (Approximate), Expires: 02/18/2026 Start: 02-14-2025 Comprehensive metabo lic 2000 panel - Serum or Plasma [facility] Start: 02-14-2025 End: 02-14-2025 [facility] Start: 02-13-2025 Physical therapy procedure [facility] Start: 02-13-2025 Referral to neurologist [facility] Start: 02-13-2025 Referral to occupati onal therapist [facility] Start: 02-13-2025 [facility] Start: 02-13-2025 Hospital admission [facility] Start: 01-30-2025 End: 01-30-2025 Patient encounter procedure [facility] Comment on above: 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 (Primary Dx); Venous insufficiency Start: 01-06-2025 End: 01-06-2025 Patient encounter procedure 01/06/2025 12:30 PM EDT Office Visit RANDELL MEAD [address] [place] [phone] Stanley Saunders DO [address] [place] [address] [facility] Start: 01-02-2025 End: 01-02-2025 Patient encounter procedure [facility] Comment on above: Laceration of lesser toe of left foot without foreign body present, nail damage status unspecified, initial encounter (Primary Dx); Closed nondisplaced fracture of distal phalanx of left great toe, initial encounter; Venous insufficiency Start: 12-16-2024 Hemoglobin A1c measurement Jen betes: Hemoglobin A1C [facility] Start: 12-16-2024 End: 12-16-2024 Patient encounter procedure 12/16/2024 1:45 PM EDT Office Visit [facility] [address] [facility] [address] [place] [id number] Komal Schaffer MD [address] [facility] [address] [place] [address] [facility] Start: 12-12-2024 End: 12-12-2024 Patient encounter procedure [facility] Comment on above: Laceration of lesser toe of left foot without foreign body present, nail damage status unspecified, initial encounter (Primary Dx); Closed nondisplaced fracture of distal phalanx of left great toe, initial encounter Start: 12-09-2024 End: 12-09-2024 Patient encounter procedure 12/09/2024 2:00 PM EDT Office Visit [address] [place] [address] Willy Leyva, BOWLING ALLEY MANAGER-ZIPPER SETTER [address] [facility] [address] [place] [address] [facility] [...] Essential hypertension Expected: 11/11/2024 (Approximate), Expires: 11/04/2025 [facility] Service Area Work Phone: Comment on above: Expected: 11/11/2024 (Approximate), Expires: 11/04/2025 Start: 11-11-2024 End: 11-11-2024 Professional / ancillary services management 11/11/2024 2:00 PM EDT Ancillary Procedure [address] [place] [address] [facility] Start: 11-04-2024 End: 11-04-2025 Holter monitor study Holter Or Event Radio Interference Trouble Shooter Cardiac Services Routine Localized edema Paroxysmal atrial fibrillation (Multi) Expected: 11/04/2024 (Approximate), Expires: 11/04/2025 [facility] Work Phone: Comment on above: Expected: 11/04/2024 (Approximate), Expires: 11/04/2025 Start: 10-15-2024 End: 10-15-2024 Patient encounter procedure [facility]ANDE[facility] MEAD Comment on above: Arrived Start: 10-11-2024 End: 10-11-2025 Basic metabolic 2000 panel - Serum or Plasma Basic Metabolic Panel Lab Routine Paroxysmal atrial fibrillation (Multi) High risk medication use Expected: 10/11/2024 (Approximate), Expires: 10/11/2025 [facility] Service Area Work Phone: Comment on above: [...] FM [address] [place] [id number] Leela Bocanegra NP [address] [place] [address] Arrived [facility] Comment on above: Arrived Start: 10-05-2024 Medicare Annual Well ness (AWV) Medicare Annual Wellness (AWV) [facility] Start: 09-25-2024 Urine screening for protein Diabetes: Urine Protein Screening [facility] Start: 09-24-2024 End: 09-24-2024 Patient encounter procedure 09/24/2024 2:20 PM EST Office Visit [facility] [address] [place] [address] Baltazar Hoover DO [address] [place] [address] [facility] Start: 09-21-2024 [facility] Start: 09-20-2024 [facility] Start: 09-19-2024 [facility] Start: 09-18-2024 [facility] Start: 09-17-2024 [facility] Start: 09-16-2024 [facility] Start: 09-15-2024 [facility] Start: 09-14-2024 [facility] Start: 09-13-2024 End: 09-13-2024 [facility] Start: 09-12-2024 End: 09-12-2024 Patient encounter procedure 09/12/2024 2:50 PM EST Procedure Visit [facility] [address] [place] [address] Real Og DPM [address] [facility] [address] [place] [address] [facility] Start: 09-12-2024 [facility] Start: 09-11-2024 [facility] Start: 09-11-2024 Hospital admission [facility] Start: 09-11-2024 Referral to neurologist [facility] Start: 09-11-2024 End: 09-11-2024 [facility] Start: 08-22-2024 End: 08-22-2024 Patient encounter procedure 08/22/2024 3:00 PM EST Procedure Visit [facility] [address] [place] [phone] Real Og DPM [address] [facility] 5 [place] [address] [facility] Start: 07-31-2024 [facility] Start: 07-30-2024 Referral to palliati ve care physician [facility] Start: 07-29-2024 Consultation [facility] Start: 07-28-2024 Hospital admission [facility] Start: 07-24-2024 End: 07-24-2025 Basic metabolic 1998 [...] [address] [place] [phone] Leela Bocanegra COMPUTER CUSTOMER SUPPORT SPECIALIST [address] [place], [place] [id number] Arrived [facility] Comment on above: Arrived Start: 07-23-2024 End: 07-23-2024 Patient encounter procedure 07/23/2024 1:40 PM EST Office Visit [facility] [place] [address] [place] [phone] Rubia Henning NP [address] [place], [place] [id number] [facility] [place] [facility] Start: 07-22-2024 End: 07-22-2024 Patient encounter procedure 07/22/2024 1:00 PM EST Office Visit [facility] [place] [address] [place] [address] Mookie Tamayo NP [address] [place] [phone] [facility] [place] [facility] Start: 07-12-2024 End: 07-12-2024 [facility] Start: 07-11-2024 [facility] Start: 07-10-2024 [facility] Start: 07-09-2024 [facility] Start: 07-09-2024 Hospital admission [facility] Start: 07-09-2024 Referral to neurologist [facility] Start: 07-09-2024 [facility] Start: 07-04-2024 [facility] Start: 06-29-2024 [facility] Start: 06-28-2024 [facility] Start: 06-27-2024 [facility] Start: 06-26-2024 [facility] Start: 06-25-2024 [facility] Start: 06-24-2024 [facility] Start: 06-23-2024 [facility] Start: 06-22-2024 Hospital admission [facility] Start: 06-22-2024 Referral to clinical jewelry setter [facility] Start: 06-22-2024 End: 06-22-2024 [facility] Start: 06-21-2024 [facility] Start: 06-20-2024 Referral to rehabili tation physician [facility] Start: 06-20-2024 Referral to rehabili tation physician [facility] Start: 06-20-2024 [facility] Start: 06-19-2024 Physical therapy procedure [facility] Start: 06-19-2024 Referral to occupati onal therapist [facility] Start: 06-19-2024 Referral to speech a nd language therapy service [facility] Start: 06-19-2024 [facility] Start: 06-19-2024 Consultation [facility] Start: 06-19-2024 Hospital admission [facility] Start: 06-19-2024 Referral to neurologist [facility] Start: 06-19-2024 [facility] Start: 06-13-2024 End: 06-13-2024 Patient encounter procedure [facility] Comment on above: 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 (Primary Dx); Venous insufficiency Start: 05-27-2024 End: 05-27-2024 Patient encounter procedure 05/27/2024 1:00 PM EDT Office Visit [facility] [address] [place] [phone] Stanley Saunders, [address] [place] [address] Arrived [facility] Comment on above: Arrived Start: 05-16-2024 Echocardiography E[facility] Start: 04-21-2024 COVID-19 Vaccine ( season) COVID-19 Vaccine ( season) [facility] Start: 04-21-2024 Influenza vaccination Influenza Vacc ine (#1) [facility] Start: 03-19-2024 End: 03-19-2024 Patient encounter procedure 03/19/2024 1:00 PM EDT Office Visit [facility] [address] [facility] [address] [place] [phone] Willy Leyva, BOWLING ALLEY MANAGER-ZIPPER SETTER [facility] [facility] [place] [address] [facility] Start: 02-12-2024 Bacteria identified in Blood by Culture [facility] Start: 12-24-2023 Hemoglobin A1c measurement Jen betes: Hemoglobin A1C [facility] Start: 11-16-2023 End: 11-16-2023 Patient encounter procedure 11/16/2023 3:40 PM EDT Procedure Visit [facility] [address] [facility] [address] [place] [address] Real Og, DPM [address] [facility] [address] [place] [address] [facility] Start: 11-15-2023 End: 09-20-2024 Holter monitor study Holter Or Event Radio Inter[facility] Routine Paroxysmal atrial fibrillation (CMS/HCC) Expected: 11/15/2023, Expires: 09/20/2024 [facility] Service Area Work Phone: Comment on above: Expected: 11/15/2023 , Expires: 09/20/2024 Start: 11-15-2023 End: 11-15-2023 Professional / ancillary services management 11/15/2023 1:00 PM EDT Ancillary Procedure [facility] [address] [facility] [address] [place] [address] [facility] Start: 10-09-2023 End: 10-09-2023 ambulatory [facility] Start: 10-05-2023 End: 10-05-2023 Patient encounter procedure 10/05/2023 1:15 PM EST Office Visit [facility] [address] [facility] [address] [place] [phone] Komal Schaffer MD [address] [facility] [address] [place] [address] [facility] Start: 10-04-2023 End: 10-04-2023 ambulatory [facility] Comment on above: Arrived Start: 09-28-2023 End: 09-28-2023 ambulatory 09/28/2023 1:30 PM EST Treatment [facility] [address] [facility] [address] [place] [address] Anderson Ray PTA [facility] Start: 09-25-2023 End: 09-25-2024 CBC W Auto Differential panel - Blood CBC and differential Lab Routine Paroxysmal atrial fibrillation ([facility]/HCC) Expected: 09/25/2023 (Approximate), Expires: 09/25/2024 [facility] Comment on above: Expected: 09/25/2023 (Approximate), Expires: 09/25/2024 Start: 09-25-2023 End: 09-25-2024 Comprehensive metabolic 2000 panel - Serum or Plasma Comprehensive metabolic panel Lab Routine Benign essential hypertension ([facility]/HCC) Expected: 09/25/2023 (Approximate), Expires: 09/25/2024 [facility] Comment on above: Expected: 09/25/2023 (Approximate), Expires: 09/25/2024 Start: 09-25-2023 End: 09-25-2024 Hemoglobin A1c measurement Hemoglobin A1c Lab Routine Type 2 diabetes mellitus with diabetic neuropathy, without long-term current use of insulin ([facility]/HCC) Expected: 09/25/2023 (Approximate), Expires: 09/25/2024 [facility] Work Phone: Comment on above: Expected: 09/25/2023 (Approximate), Expires: 09/25/2024 Start: 09-25-2023 End: 09-25-2024 Lipid 1996 panel - Serum or Plasma Lipid panel Lab Routine Type 2 diabetes mellitus with diabetic neuropathy, without long-term current use of insulin ([facility]) Benign essential hypertension ([facility]) Expected: 09/25/2023 (Approximate), Expires: 09/25/2024 [facility] Comment on above: Expected: 09/25/2023 (Approximate), Expires: 09/25/2024 Start: 09-25-2023 End: 09-25-2024 TSH W/REFLEX TO FT4 TSH W/REFLEX TO FT4 Lab Routine Type 2 diabetes mellitus with diabetic neuropathy, without long-term current use of insulin ([facility]) Expected: 09/25/2023 (Approximate), Expires: 09/25/2024 [facility] Comment on above: Expected: 09/25/2023 (Approximate), Expires: 09/25/2024 Start: 09-25-2023 End: 09-25-2023 ambulatory 09/25/2023 12:30 PM EST Treatment [facility] [address] [facility] [address] [place] [address] Anderson Ray, SCALLOP CUTTER [facility] Start: 08-24-2023 FUV, Provider: Baltazar Hoover, Status: Pen, Time: 11:10 AM FUV, Provider: Baltazar Hoover, Status: Pen, Time: 11:10 AM [place] [address] DO Work Phone: Start: 07-01-2023 Hemoglobin A1c measurement Jen betes: Hemoglobin A1C [facility] Start: 06-10-2023 [facility] Start: 05-22-2023 [facility] Start: 05-21-2023 [facility] Start: 05-21-2023 Administration of prophylactic treatment [facility] Start: 05-21-2023 Hospital admission [facility] Start: 05-21-2023 Referral to clinical jewelry setter [facility] Start: 05-21-2023 [facility] Start: 05-18-2023 Administration of prophylactic treatment [facility] Start: 05-18-2023 [facility] Start: 05-16-2023 Referral to rehabili tation physician [facility] Start: 05-16-2023 [facility] Start: 05-11-2023 Consultation [facility] Start: 05-11-2023 Hospital admission [facility] Start: 05-11-2023 Referral to neurologist [facility] Start: 05-10-2023 Respiratory Ventilat ion, Greater than 96 Consecutive Hours Respiratory Ventilation, Greater than 96 Consecutive Hours [facility] Start: 04-21-2023 COVID-19 Vaccine ( season) COVID-19 Vaccine ( season) [facility] Start: 04-21-2022 Influenza vaccination INFLUENZA (#1) [facility] Start: 03-21-2022 Influenza vaccination Flu vaccine (# 1) [facility] Start: 09-25-2021 COVID-19 VACCINE (4 - Booster for Pfizer series) COVID-19 VACCINE (4 - Booster for Pfizer series) [facility] Start: 08-21-2021 ADVANCE DIRECTIVE DISCUSSION ADVANCE DIRECTIVE DISCUSSION [facility] Start: 08-17-2021 Urine screening for protein Diabetes: Urine Protein Screening [facility] Start: 07-19-2021 COVID-19 Vaccine (4 - Booster for Pfizer series) COVID-19 Vaccine (4 - Booster for Pfizer series) [facility] Start: 2018 RSV High Risk: (Elde rly (60+) or Population) (1 - 1-dose 75+ series) RSV High Risk: (Elderly (60+) or Population) (1 - 1-dose 75+ series) [facility] Start: 07-03-2012 Zoster Vaccines (2 of 3) Zoste r Vaccines (2 of 3) [facility] Start: 2008 PNEUMOCOCCAL: 65+ (1 - PCV) PNEUMOCOCCAL: 65+ (1 - PCV) [facility] Start: 1993 SHINGRIX VACCINE (1 of 2) COLEMAN GRIX VACCINE (1 of 2) [facility] Start: 1965 DTaP/Tdap/Td Vaccine s (1 - Tdap) DTaP/Tdap/Td Vaccines (1 - Tdap) [facility] Start: 1962 DTaP/Tdap/Td vaccine (1 - Tdap) DTaP/Tdap/Td vaccine (1 - Tdap) [facility] Start: 1962 Urine microalbumin profile DTAP,TDAP ,TD (1 - Tdap) [facility] Start: 1961 Diabetes mellitus screening Diabetes Screening [facility] Start: 1961 HEPATITIS C SCREENING HEPATITIS C [facility] Start: 1961 Hepatitis C screening Hepatitis C [facility] Start: 1955 Adult depression scr eening assessment DEPRESSION SCREENING [facility] Start: 1953 Glaucoma screening Diabetes: R etinopathy Screening [facility] Start: 1943 Lipid panel Lipid Panel [facility] Start: 1943 Medicare Annual Well ness (AWV) Medicare Annual Wellness (AWV) [facility] Start: 1943 Medicare Annual Well ness Visit Medicare Annual Wellness Visit (AWV) [facility] Start: 1943 Thyroid stimulating hormone measurement TSH Level [facility] End: 11-06-2022 Basic metabolic 2000 panel - Serum or Plasma Basic Metabolic Panel Lab Routine Daily for 3 Weeks starting 10/17/2022 until 11/06/2022, 2 completed [employer] Phone: Comment on above: Daily for [address] arting 10/17/2022 until 11/06/2022, 2 completed End: 11-06-2022 CBC panel - Blood by Automated count CBC Lab Routine Daily for 3 Weeks starting 10/17/2022 until 11/06/2022, 2 completed [employer] Phone: Comment on above: Daily for [address] arting 10/17/2022 until 11/06/2022, 2 completed Home BIPAP or CPAP Home BIPAP or CPAP Respiratory Care Routine Daily until discontinued starting 10/17/2022 [employer] Phone: Comment on above: Daily until disconti nued starting 10/17/2022 End: 10-15-2022 Intermittent pulse oximetry Pulse Oximetry Spot Check Respiratory Care Routine Continuous until discontinued starting 10/15/2022 [facility] Work Phone: Comment on above: Continuous until dis continued starting 10/15/2022 Oxygen therapy [[facility] Data Set] Initiate Oxygen Therapy Protocol Respiratory Care Routine As Needed until discontinued starting 10/15/2022 [facility] Work Phone: Comment on above: As Needed until disc ontinued starting 10/15/2022 Patient Education [facility] Work Phone: Patient referral [facility] Work Phone: [facility] Immunizations Immunization Date Immunization Notes Care Provider Bright farley 05-22-2025 influenza, high dose seasonal, preservative-free Leela Bocanegra COMPUTER CUSTOMER SUPPORT SPECIALIST Work Phone: [facility] 06-22-2024 influenza, high dose seasonal, preservative-free GEOVANY Komal Sarbjit Work Phone: [facility] 06-05-2024 influenza, seasonal, injectable Willy Leyva BOWLING ALLEY MANAGER-ZIPPER SETTER Work Phone: [facility] Work Phone: 06-05-2024 influenza virus vaccine, unspecified formulation Leela Bocanegra COMPUTER CUSTOMER SUPPORT SPECIALIST Work Phone: [facility] 06-22-2023 Influenza, High-dose Seasonal, Quadrivalent, Preservative Free Anderson Ray SCALLOP CUTTER [facility] 06-22-2023 influenza virus vaccine, unspecified formulation Stanley Saunders DO Work Phone: [facility] 07-21-[address] 12 Years And Older Anderson Ray SCALLOP CUTTER [facility] 07-21-2022 Pfizer COVID-19 Vac Bivalent 30 MCG/0.3ML Intramuscular Suspension Willy Leyva BOWLING ALLEY MANAGER-ZIPPER SETTER Work Phone: [facility] 250 DO Work Phone: 07-13-2022 Fluzone High-Dose Quadrivalent 0.7 ML Intramuscular Suspension Prefilled Syringe Willy Leyva BOWLING ALLEY MANAGER-ZIPPER SETTER Work Phone: [facility] 250 DO Work Phone: 05-25-2021 Pfizer-BioNTech COVID-19 Vacc 30 MCG/0.3ML Intramuscular Suspension Willy Lyeva BOWLING ALLEY MANAGER-ZIPPER SETTER Work Phone: [facility] 250 DO Work Phone: 05-20-2021 Fluad Quadrivalent 0 .5 ML Intramuscular Prefilled Syringe Willy Leyva BOWLING ALLEY MANAGER-ZIPPER SETTER Work Phone: [facility] 250 DO Work Phone: 05-20-2021 Seasonal, trivalent, recombinant, injectable influenza vaccine, preservative free Anderson Cory [facility] 02-18-2021 SARS-CoV-2 (COVID-19 ) mRNA BNT-162b2 liana Leyva Jr. [facility] 11-10-2020 Pfizer-BioNTech COVID-19 Vacc 30 MCG/0.3ML Intramuscular Suspension Willy Leyva BOWLING ALLEY MANAGER-ZIPPER SETTER Work Phone: [place] [address] DO Work Phone: 10-19-2020 Pfizer-BioNTech COVID-19 Vacc 30 MCG/0.3ML Intramuscular Suspension Willy Leyva BOWLING ALLEY MANAGER-ZIPPER SETTER Work Phone: [place] [address] DO Work Phone: 09-21-2020 SARS-CoV-2 (COVID-19 ) mRNA BNT-162b2 liana Leyva Jr. [facility] 08-21-2020 SARS-CoV-2 (COVID-19 ) mRNA BNT-162b2 liana Leyva Jr. [facility] [place] 05-06-2020 influenza, high dose seasonal, preservative-free Willy Leyva BOWLING ALLEY MANAGER-ZIPPER SETTER Work Phone: [place] [address] DO Work Phone: 05-06-2020 Influenza, High-dose Seasonal, Quadrivalent, Preservative Free Anderson Ray [facility] 04-21-2020 influenza virus vaccine, unspecified formulation Willy Leyva BOWLING ALLEY MANAGER-ZIPPER SETTER Work Phone: [facility] 250 DO Work Phone: 04-21-2020 influenza, seasonal, injectable Baltazar Hoover DO Work Phone: [facility] Work Phone: 05-27-2019 influenza, high dose seasonal, preservative-free Baltazar Hoover DO Work Phone: [facility] Work Phone: 05-27-2019 Influenza, High-dose Seasonal, Quadrivalent, Preservative Free Anderson Ray [facility] 05-21-2019 influenza virus vaccine, unspecified formulation Willy Leyva BOWLING ALLEY MANAGER-ZIPPER SETTER Work Phone: [place] [address] DO Work Phone: 05-21-2019 influenza, seasonal, injectable Baltazar Hoover DO Work Phone: [facility] Work Phone: 05-23-2018 influenza, high dose seasonal, preservative-free Willy Leyva BOWLING ALLEY MANAGER-ZIPPER SETTER Work Phone: [facility] 250 DO Work Phone: 05-23-2018 Influenza, High-dose Seasonal, Quadrivalent, Preservative Free Anderson Ray [facility] 11-30-2017 pneumococcal polysaccharide vaccine, 23 valent Willy Leyva BOWLING ALLEY MANAGER-ZIPPER SETTER Work Phone: [facility] 06-27-2017 influenza, high dose seasonal, preservative-free Willy Leyva BOWLING ALLEY MANAGER-ZIPPER SETTER Work Phone: [facility] 250 DO Work Phone: 05-21-2017 pneumococcal vaccine , unspecified formulation Willy Leyva BOWLING ALLEY MANAGER-ZIPPER SETTER Work Phone: [facility] 250 DO Work Phone: 05-17-2017 influenza, high dose seasonal, preservative-free Willy Leyva BOWLING ALLEY MANAGER-ZIPPER SETTER Work Phone: [facility] 250 DO Work Phone: 05-17-2017 Influenza, High-dose Seasonal, Quadrivalent, Preservative Free Anderson Ray [facility] 08-06-2016 pneumococcal conjuga te vaccine, 13 valent Stanley Saunders DO Work Phone: [facility] 05-21-2016 pneumococcal conjuga te vaccine, 13 valent Willy Leyva BOWLING ALLEY MANAGER-ZIPPER SETTER Work Phone: [place] [address] DO Work Phone: 10-26-2015 pneumococcal conjuga te vaccine, 13 valent Willy Leyva BOWLING ALLEY MANAGER-ZIPPER SETTER Work Phone: [facility] 250 DO Work Phone: 05-22-2015 seasonal influenza, intradermal, preservative free Anderson Ray [facility] 05-30-2014 seasonal influenza, intradermal, preservative free Anderson Ray [facility] 05-08-2012 zoster vaccine, live Andersonkathy Jaquez e [facility] 10-19-2004 pneumococcal polysaccharide vaccine, 23 valent Anderson Ray [facility] Payers Date Payer Category Payer Self-pay [id number] 2022 Medicare supplementa l policy (as second payer) [facility] [id number] 2022 Unknown 2016 Private Health Insurance [id number] .[id number]. 2.7.3.080478.315 2008 Medicare [id number]. 1.13.159. 2.7.3.147062.315 1959 Medicare [id number] 1959 Unknown [id number] 1943 Unknown [id number] 2.16.840.1.019046.3.579. 2.593 1943 Unknown [id number] 2.16.840.1.819785.3.579. 2.593 1943 Unknown [id number] 2.16.840.1.852933.3.579. 2.593 1943 Unknown [id number] 2.16.840.1.644991.3.579. 2.593 1943 Unknown [id number] 2.16.840.1.650371.3.579. 2.593 1943 Unknown [id number] 2.16.840.1.116301.3.579. 2.593 1943 Unknown [id number] 2.16.840.1.699449.3.579. 2.593 1943 Unknown [id number] 2.16.840.1.979882.3.579. 2.727 1943 Unknown [id number] 2.16.840.1.170784.3.579. 2.727 1943 Unknown [id number] 2.16.840.1.280847.3.579. 2.727 1943 Unknown [id number] 2.16840.1.038958.3.579. 2 1943 Unknown [id number] 2.840.1.592048.3.579. 2.72 1943 Unknown [id number] 2.840.1.067613.3.579. 2. 1943 Unknown [id number] 2.840.1.733094.3.579. 2 1943 Unknown [id number] 2.840.1.798466.3.579. 2 1943 Unknown [id number] 2.0.1.639586.3.579. 2 1943 Unknown [id number] 2.840.1.768358.3.579. 272 1943 Unknown [id number] 2.840.1.250679.3.579. 2 1943 Unknown [id number] 2.840.1.979886.3.579. 272 1943 Unknown [id number] 2.0.1.090385.3.579. 272 1943 Unknown [id number] 2.840.1.782705.3.579. 2.175 1943 Unknown [id number] 2.16840.1.472377.3.579. 2.356 1943 Unknown [id number] 2.840.1.682474.3.579. 2.356 1943 Unknown [id number] 2.840.1.582118.3.579. 2.356 1943 Unknown [id number] 2.16.840.1.366469.3.579. 2.356 1943 Unknown [id number] 2.16.840.1.226042.3.579. 2.356 1943 Unknown [id number] 2.16.840.1.126775.3.579. 2.1244 1943 Unknown [id number] 2.16.840.1.853849.3.579. 2.1244 1943 Unknown [id number] 2.16.840.1.972896.3.579. 2.1244 1943 Unknown [id number] 2.840.1.185190.3.579. 2.4 1943 Unknown [id number] 2.840.1.657933.3.579. 2.1244 1943 Unknown [id number] 2.840.1.212581.3.579. 2.718 1943 Unknown [id number] 2.840.1.659384.3.579. 2.1259 1943 Unknown [id number] 2.840.1.852899.3.579. 2.1259 1943 Unknown [id number] 2.840.1.580975.3.579. 2.1259 1943 Unknown [id number] 2.16840.1.119244.3.579. 2.1259 1943 Unknown [id number] 2.840.1.870354.3.579. 2.1259 1943 Unknown [id number] 2.16840.1.587640.3.579. 2.1259 1943 Unknown [id number] 2.16840.1.592881.3.579. 2.1259 1943 Unknown [id number] 2.16840.1.480023.3.579. 2.1259 1943 Unknown [id number] 2.16.840.1.333756.3.579. 2.1258 1943 Unknown [id number] 2.16.840.1.983203.3.579. 2.1258 1943 Unknown [id number] 2.16.840.1.045385.3.579. 2.1258 1943 Unknown [id number] 2.16.840.1.798234.3.579. 2.1258 1943 Unknown [id number] 2.840.1.572134.3.579. 2.1258 1943 Unknown [id number] 2.840.1.560468.3.579. 2.1258 1943 Unknown [id number] 2.840.1.345928.3.579. 2.1258 1943 Unknown [id number] 2.840.1.302422.3.579. 2.1258 1943 Unknown [id number] 2.840.1.971611.3.579. 2.1258 1943 Unknown [id number] 2.840.1.531438.3.579. 2.1258 1943 Unknown [id number] 2.840.1.784794.3.579. 2.1258 1943 Unknown [id number] 2.16840.1.929960.3.579. 2. 1943 Unknown [id number] 2.16840.1.189297.3.579. 2. 1943 Unknown [id number] 2.16840.1.819698.3.579. 2. 1943 Unknown [id number] 2.16840.1.120032.3.579. 2. 1943 Unknown [id number] 2.16.840.1.091811.3.579. 2.196 1943 Unknown [id number] 2.16.840.1.914032.3.579. 2.196 1943 Unknown [id number] 2.16.840.1.296883.3.579. 2.196 1943 Unknown [id number] 2.16.840.1.762114.3.579. 2.196 1943 Unknown [id number] 2.16.840.1.223592.3.579. 2.196 1943 Unknown [id number] 2.16.840.1.429462.3.579. 2.196 Medicare [id number] Unknown [id number] 2.16.840.1.760875.3.579. 2.531 Unknown [id number] Unknown [id number] Unknown [id number] [id number] Unknown [id number] Unknown [id number] Social History Date Type Detail Facility Start: 12-07-2021 End: 12-23-2022 Tobacco smoking status Never smoked tobacco (finding) [facility] Start: 03-17-2023 End: 09-20-2023 Sex Assigned At Male [facility] Tobacco smoking status Never [facility] Start: 01-03-2019 End: 12-23-2022 Tobacco use and exposure Smokeless tobacco non-user [facility] Start: 05-06-2022 End: 05-22-2025 Alcohol intake Current drinker of alcohol (finding) [facility] Start: 05-08-2017 History SDOH Alcohol Comment rare [facility] Start: 1945 Sex Assigned At Not on file [facility] Start: 04-26-2022 End: 01-15-2025 Exposure to SARS-CoV-2 (event) Not sure [facility] Work Phone: Start: 1945 Sex Assigned At Male [facility] Start: 03-17-2023 End: 09-20-2023 Caffeine use Caffeine use -[facility] DO Work Phone: Comment on above: 2 CANS DAILY OF CAFF IENE FREE OR DIET POP; Start: 09-20-2023 Alcohol intake Ex-drinker (finding) [facility] Work Phone: Start: 09-07-2023 End: 01-15-2025 [...] Start: 07-04-2024 End: 09-13-2024 Sex Male (finding) [facility] Start: 02-14-2025 SDOH Follow up SDOH Follow up [facility] Work Phone: Goals Date Patient Goal Desired Activity /State Functional Status Date Assessment Result Facility 05-22-2025 Patient Health Questionnaire 2 item (PHQ-2) [Reported] [facility] 04-01-2025 Patient Health Questionnaire 2 item (PHQ-2) [Reported] [facility] 04-01-2025 PHQ-9 quick depressi on assessment panel [Reported.PHQ] [facility] 02-18-2025 Patient Health Questionnaire 2 item (PHQ-2) [Reported] [facility] 02-18-2025 PHQ-9 quick depressi on assessment panel [Reported.PHQ] [facility] 12-05-2024 Patient Health Questionnaire 2 item (PHQ-2) [Reported] [facility] 09-13-2024 Functional status Patient at Baseline [facility] Work Phone: 09-11-2024 Functional status 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 Baseline [facility] Work Phone: 07-31-2024 Functional status 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 Baseline [facility] Work Phone: 07-12-2024 Functional status Patient at Baseline [facility] Work Phone: 07-09-2024 Functional status Patient Not at Baseline [facility] Work Phone: 07-04-2024 Functional status Patient at Baseline [facility] Work Phone: 06-22-2024 Functional status 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 Baseline [facility] Work Phone: 06-19-2024 Functional status Patient Not at Baseline [facility] Work Phone: 06-10-2023 Functional status Patient at Baseline [facility] Work Phone: 05-21-2023 Functional status 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 Baseline [facility] Work Phone: 03-29-2022 Functional Status N/A [facility] 02-17-2022 Functional Status No [facility] 02-01-2022 Functional Status N/A [facility] Mental Status Date Assessment Result Facility 09-13-2024 Cognitive function Patient at Baseline [facility] Work Phone: 09-11-2024 Cognitive function Patient at Baseline [facility] Work Phone: 07-31-2024 Cognitive function Patient at Baseline [facility] Work Phone: 07-12-2024 Cognitive function Patient at Baseline [facility] Work Phone: 07-09-2024 Cognitive function Cognitive Sta tus Patient at Baseline [facility] Work Phone: 07-04-2024 Cognitive function Patient at Baseline [facility] Work Phone: 06-22-2024 Cognitive function Patient at Baseline [facility] Work Phone: 06-19-2024 Cognitive function Cognitive Sta tus Patient at Baseline [facility] Work Phone: 06-10-2023 Cognitive function Cognitive Sta tus Patient at Baseline [facility] Work Phone: 05-21-2023 Cognitive function Cognitive Sta tus Patient at Baseline [facility] Work Phone: Clinical Notes 12-07-2021 to [...] ONE DAILY MENS 50+ADVANCED PO) nystatin (Mycostatin) 050045 UNIT/GM powder omega-3 (Fish Oil) 1000 MG [...] Date Acute respiratory failure with hypoxia ([facility]) 11/17/2023 Acute respiratory insufficiency 12/15/2018 d/t Pulmonary Emboli MATT (acute kidney injury) 09/17/2024 Allergic rhinitis due to other allergen Autoimmune disorder ([facility]) Bilateral pulmonary embolism ([facility]) 2019 Acute Hypoxic Resp. 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 Cervical radiculopathy at C8 05/2017 CTS (carpal tunnel syndrome) 05/2017 Bilateral Essential hypertension, benign Facial droop Head injury with fracture of skull ([facility]) 09/17/2024 History of being hospitalized 06/19/2024 Myasthenia [...] 2009 /pucker Muscle cramp Myasthenia gravis ([facility]) 12/27/2017 / dyspnea Myasthenic crisis ([facility]) 05/10/2023 Obesity Obstructive sleep apnea (adult) (pediatric) Pulmonary emboli ([facility]) 11/17/2023 Pulmonary embolism (HCC) 11/2018 Pure hypercholesterolemia [...] - Flu vaccine, high dose seasonal, PF ([id number]) (Fluzone High Dose) Tolerated vaccination without difficulty. No follow-ups on file. documented in this encounter [facility] 04-24-2025 History of Present illness [...] injury with fracture of skull ([facility]) 09/17/2024 History of being hospitalized 06/19/2024 Myasthenia [...] PO), , Disp: , Rfl: nystatin (Mycostatin) 557697 UNIT/GM powder, , Disp: , Rfl: omega-3 [...] min Stress: No Stress Concern Present (03/17/2023) [employer] [place] [employer] - Occupational Stress Questionnaire Feeling of Stress : Only a little Social Connections: Moderately Isolated (03/17/2023) Social Connection and Isolation Panel [NHANES] Frequency of Communication with Friends and Family: More than three times a week Frequency of Social Gatherings with Friends and Family: Once a week Attends Restorationist Services: Never Active Member of Clubs or [...] Real Og DPM documented in this encounter [facility] 04-01-2025 Telephone encounter Note OARRS reviewed, Rx sent into patient's pharmacy. [facility] 04-01-2025 Miscellaneous Notes OARRS reviewed, Rx sent into patient's pharmacy. documented in this encounter [facility] 04-01-2025 History of Present illness [...] ONE DAILY MENS 50+ADVANCED PO) nystatin (Mycostatin) 526545 UNIT/GM powder omega-3 (Fish Oil) 1000 MG [...] injury with fracture of skull ([facility]) 09/17/2024 History of being hospitalized 06/19/2024 Myasthenia [...] 2008 /pucker Muscle cramp Myasthenia gravis ([facility]) 12/27/2017 / dyspnea Myasthenic crisis ([facility]) 05/10/2023 Obesity Obstructive sleep apnea (adult) (pediatric) Pulmonary emboli ([facility]) 11/17/2023 Pulmonary embolism ([facility]) 11/2018 Pure hypercholesterolemia Shortness of breath Superficial thrombophlebitis 12/16/2018 Rt Thigh Syncope 09/17/2024 Tremor Troponin I above reference range 11/17/2023 Urothelial carcinoma ([facility]) 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 documented in this encounter [facility] 02-18-2025 Telephone encounter Note Kimberly Wright filled the Percocet for him most recently. He will need to reach out to her office for the refill. [facility] 02-18-2025 Miscellaneous Notes Kimberly Wright filled the Percocet for him most recently. He will need to reach out to her office for the refill. documented in this encounter [facility] 02-18-2025 History of Present illness Narrative Images from the original note were not included. Subjective Patient ID: Taurus Garcia is a 79 y.o. male who presents for No chief complaint on file.. Taurus presents today for having pain that is also making it difficult to walk. This all started a week ago Monday. He has EMS take him to [facility]. He even states that he can't take care of himself. He states she thinks he needs to go to the [facility] for help. Over the past 2 weeks, [...] ONE DAILY MENS 50+ADVANCED PO) nystatin (Mycostatin) 860477 UNIT/GM powder omega-3 (Fish Oil) 1000 MG [...] injury with fracture of skull ([facility]) 09/17/2024 History of being hospitalized 06/19/2024 Myasthenia [...] 2009 /pucker Muscle cramp Myasthenia gravis ([facility]) 12/27/2017 / dyspnea Myasthenic crisis ([facility]) 05/10/2023 Obesity Obstructive sleep apnea (adult) (pediatric) [...] follow-ups on file. documented in this encounter [facility] 02-14-2025 Hospital Discharge instructions Ambulatory OrdersInitiate Home Health Time Frame: 02/14/25, Location: Determined By Patient Additional Instructions Home health to manage: -RN/PT/OT to eval and treat -Monitor VS per protocol -High fall risk precautions -Perform neuro assessments -Assist with medication management and education [facility] Work Phone: 02-13-2025 History and physi nabila note Note Date/Time February 13, 2025 6:09pm [facility] [address] [place] [address] Hospitalist H&P Signed Patient: Taurus Garcia MR#: [id number] : 1945 Acct:[id number] Age/Sex: 79 / M Adm Date: 5 Loc: Room: [address] [place] [address] Type: ADM INOo Attending Dr: Jarret Garza MD Copies to: MD Jarret Gonsalves II, MD~ HPI DATE OF EXAMINATION: 02/13/25 CHIEF COMPLAINT: Weakness HISTORY OF PRESENT ILLNESS: Taurus Gracia is a 79-year-old male with significant past medical history of myasthenia gravis on pyridostigmine and steroids, hyperlipidemia, hypertension on multiple antihypertensive medication, right eye blindness, 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, who uses walker to ambulate, chronic back pain with narcotics presented to [facility] with shortness of breath concerning for myasthenia [...] noted below or in HPI [facility] Medical History Chronic back pain Chronic anticoagulation [...] mg PO DAILY 12/27/17 [History Confirmed 02/13/25] spuehscy-nvp-hnnxq acid 0.4 mg-lycopene 300 mcg-lutein 250 mcg [...] % (Auto) 16.7 % (.) 02/13/25 11:19 [place] % (Auto) 15.5 % (.) 02/13/25 11:19 Eos % (Auto) 1.0 % (.) 02/13/25 11:19 Baso % (Auto) 1.2 % (.) 02/13/25 11:19 Nucleat RBC Rel Count 0.0 /100 WBC (0-0.5) 02/13/25 11:19 Neut # (Auto) 4.8 x10E3/uL (1.8-7.7) 02/13/25 11:19 Lymph # (Auto) 1.2 x10E3/uL (1.00-4.8) 02/13/25 11:19 [place] # (Auto) 1.1 x10E3/uL (0.0-0.8) H 02/13/25 [...] pH 5.5 (5.0-9.0) 02/13/25 12:55 Ur Specific [place] 1.018 (1.001-1.030) 02/13/25 12:55 Urine Protein Negative [...] <Electronically signed by Jarret Garza MD> 02/13/25 2867 [facility] Work Phone: 1(170) 345-788706-26-2025 Evaluation note* Diagnosis Onset Date Resolution Status Admit Date Chronic anticoagulation acute J une 2024 4:31pm Generalized weakness acute February 13, 2025 4:31pm Myasthenia gravis acute February 132024 4:31pm [facility] Work Phone: 1(949) 362-207306-26-2025 Evaluation note* Diagnosis Onset Date Resolution Status Admit Date Chronic anticoagulation inactive J [facility] 2024 4:31pm Generalized weakness inactive February 13, 2025 4:31pm Myasthenia gravis inactive February 132024 4:31pm [facility] Work Phone: 1(814) 845-678306-26-2025 Evaluation note* Diagnosis Onset Date Resolution Status Admit Date Myasthenia gravis acute February 132024 4:31pm Chronic anticoagulation inactive J [facility] 2024 4:31pm Generalized weakness inactive February 13, [...] Septembe r 2024 1:25pm Myasthenia gravis acute [facility] er 2024 1:25pm [facility] Work Phone: 1(331) 265-708506-26-2025 [place] [address] Hospitalist H&P Signed Patient: Taurus Garcia MR#: [id number] : 1945 Acct:[id number] Age/Sex: 79 / M Adm Date: 5 Loc: Room: [address] [place] [address] Type: ADM INOo Attending Dr: Jarret Garza MD Copies to: MD Jarret Gonsavles II, MD~ HPI DATE OF EXAMINATION: 02/13/25 CHIEF COMPLAINT: Weakness HISTORY OF PRESENT ILLNESS: aTurus Garcia is a 79-year-old male with significant past medical history of myasthenia gravis on pyridostigmine and steroids, hyperlipidemia, hypertension on multiple antihypertensive medication, right eye blindness, 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, who uses walker to ambulate, chronic back pain with narcotics presented to [facility] with shortness of breath concerning for myasthenia [...] noted below or in HPI [facility] Medical History Chronic back pain Chronic anticoagulation [...] mg PO DAILY 12/27/17 [History Confirmed 02/13/25] dzrjtofo-gjc-nwain acid 0.4 mg-lycopene 300 mcg-lutein 250 mcg [...] % (Auto) 16.7 % (.) 02/13/25 11:19 [place] % (Auto) 15.5 % (.) 02/13/25 11:19 Eos % (Auto) 1.0 % (.) 02/13/25 11:19 Baso % (Auto) 1.2 % (.) 02/13/25 11:19 Nucleat RBC Rel Count 0.0 /100 WBC (0-0.5) 02/13/25 11:19 Neut # (Auto) 4.8 x10E3/uL (1.8-7.7) 02/13/25 11:19 Lymph # (Auto) 1.2 x10E3/uL (1.00-4.8) 02/13/25 11:19 [place] # (Auto) 1.1 x10E3/uL (0.0-0.8) H 02/13/25 [...] pH 5.5 (5.0-9.0) 02/13/25 12:55 Ur Specific [place] 1.018 (1.001-1.030) 02/13/25 12:55 Urine Protein Negative [...] 02/13/25 16 37 Signed By: 02/13/25 1809 [facility]06-26-2025 Radiology Diagnostic study note [facility] Main [place] [address] [place] [address] CT Scan Report Signed Patient: Taurus Garcia MR#: [id number] : 1945 Acct:[id number] Age/Sex: 79 / M ADM Date: 5 Loc: ER Room: Type: [facility] ER Attending Dr: Copies to: Kathleen Parker APRN~ Ordering Provider: Kathleen Parker APRN Date of Service: 02/13/25 CT/CT angio neck: weakness ([id number]) CT/CT angio head: weakness CT angiogram head and neck performed with contrast INDICATION: Weakness COMPARISON: CT angiogram head and neck 07/09/2024 CT angiogram images obtained through the head and neck with Sagittal and coronalMIP as well as 3-D volume rendered reconstructions of the carotid arteries and [place] of [place] were reviewed. Stenosisis evaluated using [...] Bustos MD 02/13/251516 Signed By: 02/13/25 152 [facility] Work Phone: 1(405) 939-173706-26-2025 [facility] [place] [place] [address] CT Scan Report Signed Patient: Taurus Garcia MR#: [id number] : 1945 Acct:[id number] Age/Sex: 79 / M ADM Date: 5 Loc: ER Room: Type: [facility] ER Attending Dr: Copies to: Kathleen [...] Julian Bustos MD 02/13/251509 Signed By: 02/13/251513 [facility] Work Phone: 1(291) 699-886006-12-2025 History of Present illness Narrative* Real Og [...] to other allergen Autoimmune disorder ([facility]) Bilateral pulmonary embolism (CMS/HCC) 2019 Acute Hypoxic Resp. 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 Cervical radiculopathy at C8 05/2017 CTS (carpal tunnel syndrome) 05/2017 Bilateral Essential hypertension, benign (CMS/HCC) Facial droop Head injury with fracture of skull ([facility]) 09/17/2024 History of being hospitalized 06/19/2024 Myasthenia [...] PO), , Disp: , Rfl: nystatin (Mycostatin) 496073 UNIT/GM powder, , Disp: , Rfl: omega-3 [...] min Stress: No Stress Concern Present (03/17/2023) [employer] [place] [employer] - Occupational Stress Questionnaire Feeling of Stress : Only a little Social Connections: Moderately Isolated (03/17/2023) Social Connection and Isolation Panel [NHANES] Frequency of Communication with Friends and Family: More than three times a week Frequency of Social Gatherings with Friends and Family: Once a week Attends Restorationist Services: Never Active Member of Clubs or [...] condition. Real Og DPM documented in [facility] [id number] History of Present illness Narrative* Willy Leyva APRN-ZIPPER SETTER - 01/15/2025 10:00 AM EDT Chief Complaint [...] unit/gram powder 1 Application, As needed omega 4-cev-aca-fish oil 360 mg-108 mg- 180 mg-1,200 mg [...] Dr. Hoover as scheduled Willy Leyva MSN, ANABELLZIPPER SETTER, PMHNP-[facility] [place], [place] Please excuse any errors in grammar or translation related to this dictation. Voice recognition software was utilized to prepare this document. documented in this [facility] Work Phone: 1(195) 388-397305-28-2025 Instructions* Patient Instructions* SHANT Mock - 01/15/2025 [...] Dr. Hoover as scheduled documented in this [facility] Work Phone: 1(956) 267-976205-19-2025 History of Present illness Narrative* Stanley Saunders, [...] due to other allergen Autoimmune disorder ([facility]) Bilateral pulmonary embolism (CMS/HCC) 2019 Acute Hypoxic Resp. 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 Cervical radiculopathy at C8 05/2017 CTS (carpal tunnel syndrome) 05/2017 Bilateral Essential hypertension, benign ([facility]) Facial droop Head injury with fracture of skull ([facility]) 09/17/2024 History of being hospitalized 06/19/2024 Myasthenia Gravis Exacerbation, Weakness, Dyspnea History of being hospitalized 07/09/2024 Generalized Weakness, MATT History of being hospitalized 07/28/2024 Syncope, Head injury, Generalized weakness, Hypomagnesemia History of being hospitalized 09/11/2024 Myasthenia Gravis Crisis History of echocardiogram 12/15/2018 EF 60-65%, LVH Hypertension ([facility]) Impaired glucose tolerance test Oral Lumbosacral spondylosis without myelopathy LVH (left ventricular hypertrophy) 12/15/2018 ECHO EF 60-65% Macular edema 2008 /pucker Muscle cramp Myasthenia gravis 12/27/2017 / dyspnea Myasthenic crisis ([facility]) 05/10/2023 Obesity Obstructive sleep apnea (adult) (pediatric) Pulmonary emboli 11/17/2023 Pulmonary embolism 11/2018 Pure hypercholesterolemia ([facility]) Shortness of breath Superficial thrombophlebitis 12/16/2018 Rt [...] wrist extensors , wrist flexor , and centralized traffic control operator strength 5/5. LUE strength deltoid , biceps , triceps , wrist extensors , wrist flexor , and centralized traffic control operator strength 5/5. RLE strength iliopsoas, quadriceps, tibialis [...] reflex 0. LLE knee reflex 0. Coordination: Kbhdnm-kp-sdvx testing normal. Rapid alternating movements are normal. Gait: Utilizing walker. Review and summary of old records: I reviewed documentation from the patient's inpatient hospitalization [place] [facility] from 09/11/2024 to 09/13/2024. The patient presented to [facility] at that time due to mild increase [...] from the patient's emergency department visit at [facility] on 02/12/2024. The patient presented with mild [...] MRI of the brain without contrast at [facility] on 02/20/18: Unremarkable EMG of the bilateral upper extremities on 06/19/17: Bilateral median neuropathy such as in carpal tunnel syndrome which is mild in degree electrically. Also a remote right C8 radiculopathy. Assessment/Plan Diagnoses and all orders for this visit: Myasthenia gravis ([facility]) Mr. Pascual is an 79-year-old male with [...] mg PO QID. He reports evaluation at [facility] in late August 2024 due to mild [...] or syncope - I offered referral to [facility] for a second opinion regarding [...] of45.0 to 49.9 in adult ([facility]) The patient is obese. PLAN: - We [...] [facility] documented in this encounterSullivan County Memorial [id number] History of Present illness Narrative* Real Og [...] Acute respiratory failure with hypoxia ([facility]) 11/17/2023 Acute respiratory insufficiency 12/15/2018 d/t Pulmonary Emboli MATT (acute kidney injury) ([facility]) 09/17/2024 Allergic rhinitis due to other allergen Autoimmune disorder ([facility]) Bilateral pulmonary embolism ([facility]) 2019 Acute Hypoxic Resp. 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 Cervical radiculopathy at C8 05/2017 CTS (carpal tunnel syndrome) 05/2017 Bilateral Essential hypertension, benign ([facility]) Facial droop Head injury with fracture of skull ([facility]) 09/17/2024 History of being hospitalized 06/19/2024 Myasthenia Gravis Exacerbation, Weakness, Dyspnea History of being hospitalized 07/09/2024 Generalized Weakness, MATT History of being hospitalized 07/28/2024 Syncope, Head injury, Generalized weakness, Hypomagnesemia History of being hospitalized 09/11/2024 Myasthenia Gravis Crisis History of echocardiogram 12/15/2018 EF 60-65%, LVH Hypertension ([facility]) Impaired glucose tolerance test Oral Lumbosacral spondylosis without myelopathy LVH (left ventricular hypertrophy) 12/15/2018 ECHO EF 60-65% Macular edema 2008 /pucker Muscle cramp Myasthenia gravis 12/27/2017 / dyspnea Myasthenic crisis ([facility]) 05/10/2023 Obesity Obstructive sleep apnea (adult) (pediatric) Pulmonary emboli 11/17/2023 Pulmonary embolism 11/2018 Pure hypercholesterolemia ([facility]) Shortness of breath Superficial thrombophlebitis 12/16/2018 Rt Thigh Syncope 09/17/2024 Tremor Troponin I above reference range 11/17/2023 Urothelial carcinoma ([facility]) 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 UTI, [...] food Oral, Disp: , Rfl: nystatin (Mycostatin) 582808 UNIT/GM powder, APPLY TO THE AFFECTED AREA(S) [...] future Real Og DPM documented in this encounterSullivan County Memorial [id number] History of Present illness Narrative* Real Og [...] Acute respiratory failure with hypoxia ([facility]) 11/17/2023 Acute respiratory insufficiency 12/15/2018 d/t Pulmonary Emboli MATT (acute kidney injury) ([facility]) 09/17/2024 Allergic rhinitis due to other allergen Autoimmune disorder ([facility]) Bilateral pulmonary embolism ([facility]) 2019 Acute Hypoxic Resp. 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 Cervical radiculopathy at C8 05/2017 CTS (carpal tunnel syndrome) 05/2017 Bilateral Essential hypertension, benign ([facility]) Facial droop Head injury with fracture of skull ([facility]) 09/17/2024 History of being hospitalized 06/19/2024 Myasthenia Gravis Exacerbation, Weakness, Dyspnea History of being hospitalized 07/09/2024 Generalized Weakness, MATT History of being hospitalized 07/28/2024 Syncope, Head injury, Generalized weakness, Hypomagnesemia History of being hospitalized 09/11/2024 Myasthenia Gravis Crisis History of echocardiogram 12/15/2018 EF 60-65%, LVH Hypertension ([facility]) Impaired glucose tolerance test Oral Lumbosacral spondylosis without myelopathy LVH (left ventricular hypertrophy) 12/15/2018 ECHO EF 60-65% Macular edema 2009 /pucker Muscle cramp Myasthenia gravis 12/27/2017 / dyspnea Myasthenic crisis ([facility]) 05/10/2023 Obesity Obstructive sleep apnea (adult) (pediatric) Pulmonary emboli 11/17/2023 Pulmonary embolism 11/2018 Pure hypercholesterolemia ([facility]) Shortness of breath Superficial thrombophlebitis 12/16/2018 Rt Thigh Syncope 09/17/2024 Tremor Troponin I above reference range 11/17/2023 Urothelial carcinoma ([facility]) 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 UTI, [...] food Oral, Disp: , Rfl: nystatin (Mycostatin) 872343 UNIT/GM powder, APPLY TO THE AFFECTED AREA(S) [...] toe Real Og DPM documented in this encounterSullivan County Memorial HospitalEhermwpruk85-24-7432 History of Present illness Narrative* Real Og [...] Acute respiratory failure with hypoxia ([facility]) 11/17/2023 Acute respiratory insufficiency 12/15/2018 d/t Pulmonary Emboli MATT (acute kidney injury) ([facility]) 09/17/2024 Allergic rhinitis due to other allergen Autoimmune disorder ([facility]) Bilateral pulmonary embolism ([facility]) 2019 Acute Hypoxic Resp. 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 Cervical radiculopathy at C8 05/2017 CTS (carpal tunnel syndrome) 05/2017 Bilateral Essential hypertension, benign ([facility]) Facial droop Head injury with fracture of skull ([facility]) 09/17/2024 History of being hospitalized 06/19/2024 Myasthenia Gravis Exacerbation, Weakness, Dyspnea History of being hospitalized 07/09/2024 Generalized Weakness, MATT History of being hospitalized 07/28/2024 Syncope, Head injury, Generalized weakness, Hypomagnesemia History of being hospitalized 09/11/2024 Myasthenia Gravis Crisis History of echocardiogram 12/15/2018 EF 60-65%, LVH Hypertension ([facility]) Impaired glucose tolerance test Oral Lumbosacral spondylosis without myelopathy LVH (left ventricular hypertrophy) 12/15/2018 ECHO EF 60-65% Macular edema 2008 /pucker Muscle cramp Myasthenia gravis 12/27/2017 / dyspnea Myasthenic crisis ([facility]) 05/10/2023 Obesity Obstructive sleep apnea (adult) (pediatric) Pulmonary emboli 11/17/2023 Pulmonary embolism 11/2018 Pure hypercholesterolemia ([facility]) Shortness of breath Superficial thrombophlebitis 12/16/2018 Rt Thigh Syncope 09/17/2024 Tremor Troponin I above reference range 11/17/2023 Urothelial carcinoma ([facility]) 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 UTI, [...] food Oral, Disp: , Rfl: nystatin (Mycostatin) 739603 UNIT/GM powder, APPLY TO THE AFFECTED AREA(S) [...] removal Real Og DPM documented in this encounterSullivan County Memorial HospitalBykliufosk33-85-6919 History of Present illness Narrative* Leela Bocanegra, [...] every day with food Oral nystatin (Mycostatin) 353672 UNIT/GM powder APPLY TO THE AFFECTED AREA(S) [...] Acute respiratory failure with hypoxia ([facility]) 11/17/2023 Acute respiratory insufficiency 12/15/2018 d/t Pulmonary Emboli MATT (acute kidney injury) ([facility]) 09/17/2024 Allergic rhinitis due to other allergen Autoimmune disorder ([facility]) Bilateral pulmonary embolism ([facility]) 2019 Acute Hypoxic Resp. 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 documented in this encounterSullivan County Memorial HospitalSekrvilwog05-25-2010 History of Present illness Narrative* Real Og, [...] Acute respiratory failure with hypoxia ([facility]) 11/17/2023 Acute respiratory insufficiency 12/15/2018 d/t Pulmonary Emboli MATT (acute kidney injury) ([facility]) 09/17/2024 Allergic rhinitis due to other allergen Autoimmune disorder ([facility]) Bilateral pulmonary embolism ([facility]) 2019 Acute Hypoxic Resp. 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 Cervical radiculopathy at C8 05/2017 CTS (carpal tunnel syndrome) 05/2017 Bilateral Essential hypertension, benign ([facility]) Facial droop Head injury with fracture of skull ([facility]) 09/17/2024 History of being hospitalized 06/19/2024 Myasthenia Gravis Exacerbation, Weakness, Dyspnea History of being hospitalized 07/09/2024 Generalized Weakness, MATT History of being hospitalized 07/28/2024 Syncope, Head injury, Generalized weakness, Hypomagnesemia History of being hospitalized 09/11/2024 Myasthenia Gravis Crisis History of echocardiogram 12/15/2018 EF 60-65%, LVH Hypertension ([facility]) Impaired glucose tolerance test Oral Lumbosacral spondylosis without myelopathy LVH (left ventricular hypertrophy) 12/15/2018 ECHO EF 60-65% Macular edema 2008 /pucker Muscle cramp Myasthenia gravis ([facility]) 12/27/2017 / dyspnea Myasthenic crisis ([facility]) 05/10/2023 Obesity Obstructive sleep apnea (adult) (pediatric) Pulmonary emboli ([facility]) 11/17/2023 Pulmonary embolism ([facility]) 11/2018 Pure hypercholesterolemia ([facility]) Shortness of breath Superficial thrombophlebitis 12/16/2018 Rt Thigh Syncope 09/17/2024 Tremor Troponin I above reference range 11/17/2023 Urothelial carcinoma ([facility]) 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] condition. Real Og DPM documented in this encounterSullivan County Memorial HospitalGsqconmqcw78-16-4956 Evaluation + Plan note* Assessment & Plan Note - SHANT Mock - 11/04/2024 4:29 PM EDT Associated Problem(s): Localized edema Presents to the office today with a 3-week history of progressive increasing bilateral lower extremity edema. He has gained approximately 8 pounds over the last 2 weeks. PCP increase Lasix 40 mg daily x 5 days (last dose yesterday) minimal benefit. [facility] Work Phone: [phone]) 546-438503-17-2025 Miscellaneous Notes* Assessment & Plan Note - [...] sinus rhythm with PVC. documented in this encounterWilson Memorial Hospital Work Phone: [phone] 411-166903-17-2025 Evaluation + Plan note* Assessment & Plan Note - SHANT Mock - 11/04/2024 4:28 PM EDTAssociated Problem(s): BMI 45.0-49.9, adult (Multi) Reviewed the merits of healthy lifestyle choices on overall cardiovascular health. [facility] Work Phone: 1([phone]) 194-578503-17-2025 Evaluation + Plan note* Assessment & Plan Note - SHANT Mock - 11/04/2024 4:28 PM EDTAssociated Problem(s): Essential hypertension Presents with reported elevated blood pressure with recent fluid retention. [facility] Work Phone: [phone] 115-901503-17-2025 Evaluation + Plan note* Assessment & Plan Note - SHANT Mock - 11/04/2024 4:28 PM EDTAssociated Problem(s): Paroxysmal atrial fibrillation (Multi) EKG last week was sinus rhythm with PVC. [facility] Work Phone: [phone] 743-122703-17-2025 History of Present illness Narrative* SHANT Mock [...] (MULTI VITAMIN ORAL) 1 tablet, Daily omega 5-rxb-zpw-fish oil 360 mg-108 mg- 180 mg-1,200 mg [...] contact the office if new symptoms arise. COMPUTER CUSTOMER SUPPORT SPECIALIST one month Willy Leyva MSN, BOWLING ALLEY MANAGER-ZIPPER SETTER, PMHNP-[facility] [place], [place] Please excuse any errors in grammar or translation related to this dictation. Voice recognition software was utilized to prepare this document. documented in this encounterWilson Memorial Hospital Work Phone: [phone]) 526-916503-17-2025 Instructions* Patient Instructions* SHANT Mock - 11/04/2024 [...] contact the office if new symptoms arise. COMPUTER CUSTOMER SUPPORT SPECIALIST one month documented in this encounterWilson Memorial Hospital Work Phone: 1([phone] 405-902702-21-2025 History of Present illness Narrative* Jimena Rice CMA - 10/11/2024 3:00 PM EST Patient here for EKG visit ordered by Willy Leyva COMPUTER CUSTOMER SUPPORT SPECIALIST due to bradycardia. Willy Leyva COMPUTER CUSTOMER SUPPORT SPECIALIST in suite to review EKG prior to [...] to the lasix increase. To Willy Leyva COMPUTER CUSTOMER SUPPORT SPECIALIST to read To Dr. Hoover for review upon return Vitals: 10/11/24 1502 BP: 148/80 BP Location: Right arm Patient Position: Sitting Pulse: 63 Weight: 141 kg (310 lb) Height: 1.727 m (5' 8 ) EKG done in office today documented in this [facility] Work Phone: [phone]) 925-702302-19-2025 History of Present illness Narrative* Leela Bocanegra [...] on 09/17/2024) 100 tablet 3 nystatin (Mycostatin) 455740 UNIT/GM powder APPLY TO THE AFFECTED AREA(S) [...] Date Acute respiratory failure with hypoxia ([facility]) 11/17/2023 Acute respiratory insufficiency 12/15/2018 d/t Pulmonary Emboli MATT (acute kidney injury) (CMS/HCC) 09/17/2024 Allergic rhinitis due to other allergen Autoimmune disorder (CMS/HCC) Bilateral pulmonary embolism (CMS/HCC) 2019 Acute Hypoxic Resp. 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 Cervical radiculopathy at C8 05/2017 CTS (carpal tunnel syndrome) 05/2017 Bilateral Essential hypertension, benign ([facility]) Facial droop Head injury with fracture of skull ([facility]) 09/17/2024 History of being hospitalized 06/19/2024 Myasthenia Gravis Exacerbation, Weakness, Dyspnea History of being hospitalized 07/09/2024 Generalized Weakness, MATT History of being hospitalized 07/28/2024 Syncope, Head injury, Generalized weakness, Hypomagnesemia History of being hospitalized 09/11/2024 Myasthenia Gravis Crisis History of echocardiogram 12/15/2018 EF 60-65%, LVH Hypertension ([facility]) Impaired glucose tolerance test Oral Lumbosacral spondylosis without myelopathy LVH (left ventricular hypertrophy) 12/15/2018 ECHO EF 60-65% Macular edema 2009 /pucker Muscle cramp Myasthenia gravis ([facility]) 12/27/2017 / dyspnea Myasthenic crisis ([facility]) 05/10/2023 Obesity Obstructive sleep apnea (adult) (pediatric) Pulmonary emboli ([facility]) 11/17/2023 Pulmonary embolism ([facility]) 11/2018 Pure hypercholesterolemia ([facility]) Shortness of breath Superficial thrombophlebitis 12/16/2018 Rt Thigh Syncope 09/17/2024 Tremor Troponin I above reference range 11/17/2023 Urothelial carcinoma ([facility]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 documented in this encounterSullivan County Memorial HospitalJsdvejgcij77-17-7639 Telephone encounter Note* Telephone Encounter - TEMITOPE Serrano - 09/18/2024 10:37 AM EST Acknowledged. [facility] HospitalMbvmwdlxvr99-84-8754 Miscellaneous Notes* Telephone Encounter - TEMITOPE Serrano - 09/18/2024 10:37 AM EST Acknowledged. documented in this encounterSullivan County Memorial HospitalOiseowhmkr65-26-8822 History of Present illness Narrative* TEMITOPE Serrano - 09/17/2024 2:30 PM EST Images from the original note were not included. Subjective Patient ID: Taurus Garcia is a 78 y.o. male who presents for [facility] follow [place]. Flowsheet Row Patient Outreach from 09/10/2024 in [facility] with Dee Haddad LPN Hospital Information ED, Hospital or Alf Facility Discharge? Alf Facility Patient has been contacted within two business days of discharge No [due to not know he was discharged in a timely manner] Have two attempts been made to contact the patient within two business days of being discharged? No Discharge Date 09/05/24 Discharged To: Home Setting Alf Facilities Lidya Richards Admission Date 07/31/24 Medications [...] yes What is the home health agency? [facility] Has home health visited [...] are swelling. When he was in [facility] he had a lift chair and was [...] on 09/17/2024) 100 tablet 3 nystatin (Mycostatin) [id number] UNIT/GM powder APPLY TO THE AFFECTED AREA(S) [...] the morning. 100 tablet 3 [DISCONTINUED] HYDROcodone-acetaminophen (Neopit) 5-325 MG tablet Take 1 tablet by [...] Acute respiratory failure with hypoxia ([facility]) 11/17/2023 Acute respiratory insufficiency 12/15/2018 d/t Pulmonary Emboli MATT (acute kidney injury) ([facility]) 09/17/2024 Allergic rhinitis due to other allergen Autoimmune disorder ([facility]) Bilateral pulmonary embolism ([facility]) 2019 Acute Hypoxic Resp. 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 Cervical radiculopathy at C8 05/2017 CTS (carpal tunnel syndrome) 05/2017 Bilateral Essential hypertension, benign (CMS/HCC) Facial droop Head injury with fracture of skull ([facility]) 09/17/2024 History of being hospitalized 06/19/2024 Myasthenia [...] reference range 11/17/2023 Urothelial carcinoma ([facility]) 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 documented in this encounterSullivan County Memorial HospitalJsmbssyflv69-92-0497 History of Present illness Narrative* Salma Kelley [...] lot.I do explain that we have a ARMED SECURITY GUARD who helps with used ones from [employer] [...] pursuing a used one.* documented in this [facility]01-23-2025 Progress note Author Denzel Zamora [facility] Note Date/Time September 12, 2024 7 :24pm [facility] [address] [place] [address] Hospitalist Progress Note Signed Patient: Taurus Garcia MR#: [id number] : 1945 Acct:[id number] Age/Sex: 78 / M Adm Date: 5 Loc: Room: [address] [place] [address] Type: ADM INOo Attending Dr: Denzel Zamora [...] 08:59 15 mg DAILY DORI Administration Pyridostigmine Fay 60 mg 09/11/24 14:00 09/12/24 08:53 Pyridostigmine Fay 60 Mg Tablet PO 09/11/25 13:59 60 [...] and planned nerve block, recent admission to retirement after admission in 07/2024for weakness, presented to [facility] with shortness of breath concerning for myasthenia [...] 09/12/24 1033 Signed By: <Electronically signed by Deznel Zamora MD> 09/12/241923 [facility] Work Phone: 1(131) 450-381501-23-2025 Progress note Author Jamel Packer [facility] Note Date/Time September 12, 2024 3 :52pm [facility] [address] [place] [address] Neurology Progress Note Signed Patient: Taurus Garcia MR#: [id number] : 1945 Acct:[id number] Age/Sex: 78 / M Adm Date: 5 Loc: Room: [address] [place] [address] Type: ADM INOo Attending Dr: Denzel Zamora [...] <Electronically signed by Jamel Packer DO> 09/12/24 1557 [facility] Work Phone: 1(247) 529-203201-22-2025 History and physical note Author Denzel Zamora [facility] Note Date/Time September 11, 2024 4 :18pm [facility] [address] [place] [address] Hospitalist H&P Signed Patient: Taurus Garcia MR#: [id number] : 1945 Acct:[id number] Age/Sex: 78 / M Adm Date: 5 Loc: Room: [address] [place] [address] Type: ADM IN Attending Dr: Denzel Zamora [...] and planned nerve block, recent admission to retirement after admission in 07/2024for weakness, presented to [facility] with shortness of breath concerning for myasthenia [...] no loss of motor function [facility] Medical History Chronic back pain Chronic anticoagulation [...] mg PO DAILY 12/27/17 [History Confirmed 09/11/24] dxuuikoq-lxc-vreco acid 0.4 mg-lycopene 300 mcg-lutein 250 mcg [...] and planned nerve block, recent admission to retirement after admission in 07/2024for weakness, presented to [facility] with shortness of breath concerning for myasthenia [...] signed by Denzel Zamora MD> 09/11/24 1618 [facility] Work Phone: 1(888) 964-351101-22-2025 Consult note Author Jamel Packer [facility] Note Date/Time September 11, 2024 4 :09pm [facility] [address] [place] [address] Neurology Consult Note Signed Patient: Taurus Garcia MR#: [id number] : 1945 Acct:[id number] Age/Sex: 78 / M Adm Date: 5 Loc: Room: [address] [place] [address] Type: ADM IN Attending Dr: Denzel Zamora MD Copies to: DO Komal Bajwa II, MD Rahul Prasad, MD~ HPI Consult Date: 09/11/24 Correctional Officer Lieutenant: Jamel Packer DO [facility] Medical History Chronic back pain Chronic anticoagulation [...] mg PO DAILY 12/27/17 [History Confirmed 09/11/24] asihzxdd-jrs-pshuy acid 0.4 mg-lycopene 300 mcg-lutein 250 mcg [...] Aaron Mock M.D.09/11/2024 10:20 AM Dictation Location: [facility]- Therapy Recommendations Therapy Recommendations: ST Recommendations ST [...] <Electronically signed by Jamel Packer DO> 09/11/24 4000 [facility] Work Phone: 1([phone]) 970-227701-22-2025 History of Present illness Narrative* Leela Bocanegra NP - 09/11/2024 10:31 AM EST Pt needs refill documented in this encounterSullivan County Memorial HospitalGylajvcrdn70-42-6155 Consult note Author Jamel Packer [facility] Note Date/Time September 11, 2024 4 :09pm [facility] [address] [place] [address] Neurology Consult Note Signed Patient: Taurus Garcia MR#: [id number] : 1945 Acct:[id number] Age/Sex: 78 / M Adm Date: 5 Loc: Room: [address] [place] [address] Type: ADM IN Attending Dr: Denzel Zamora MD Copies to: DO Komal Bajwa II, MD Rahul Prasad, MD~ HPI Consult Date: 09/11/24 Correctional Officer Lieutenant: Jamel Packer DO [facility] Medical History Chronic back pain Chronic anticoagulation [...] mg PO DAILY 12/27/17 [History Confirmed 09/11/24] ntgyigug-kks-wdqxj acid 0.4 mg-lycopene 300 mcg-lutein 250 mcg [...] Aaron Mock M.D.09/11/2024 10:20 AM Dictation Location: [place] [address] Therapy Recommendations Therapy Recommendations: ST Recommendations ST [...] for a myasthenic exacerbation is fairly low. Raolu not think he is in myasthenic crisis. [...] <Electronically signed by Jamel Packer DO> 09/11/24 8634 [facility] Work Phone: 1(431) 233-268812-04-2024 History of Present illness Narrative* Leela Bocanegra, [...] obesity and lack ofexercise. Treatments tried: Used Neopit in the past for pain management. URI [...] DAILY WITH FOOD 180 tablet 3 HYDROcodone-acetaminophen (Neopit) 5-325 MG tablet Take 1 tablet by [...] mouth Daily 100 tablet 3 nystatin (Mycostatin) 946391 UNIT/GM powder APPLY TO THE AFFECTED AREA(S) [...] Acute respiratory failure with hypoxia ([facility]) 11/17/2023 Acute respiratory insufficiency 12/15/2018 d/t Pulmonary Emboli Allergic rhinitis due to other allergen Autoimmune disorder ([facility]) Bilateral pulmonary embolism ([facility]) 2019 Acute Hypoxic Resp. 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 Cervical radiculopathy at C8 05/2017 CTS (carpal tunnel syndrome) 05/2017 Bilateral Essential hypertension, benign ([facility]) Facial droop History of being hospitalized 06/19/2024 Myasthenia Gravis Exacerbation, Weakness, Dyspnea History of being hospitalized 07/09/2024 Generalized Weakness, MATT History of echocardiogram 12/15/2018 EF 60-65%, LVH Hypertension ([facility]) Impaired glucose tolerance test Oral Lumbosacral spondylosis without myelopathy LVH (left ventricular hypertrophy) 12/15/2018 ECHO EF 60-65% Macular edema 2009 /pucker Muscle cramp Myasthenia gravis (CMS/HCC) 12/27/2017 / dyspnea Myasthenic crisis ([facility]) 05/10/2023 Obesity Obstructive sleep apnea (adult) (pediatric) Pulmonary emboli ([facility]) 11/17/2023 Pulmonary embolism ([facility]) 11/2018 Pure hypercholesterolemia ([facility]) Shortness of breath Superficial thrombophlebitis 12/16/2018 Rt Thigh Tremor Troponin I above reference range 11/17/2023 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 documented in this encounterS[facility] [id number] Evaluation note* Diagnosis Localized edema- Primary Edema Stage 3a chronic kidney disease (HCC) (CMS/HCC) Lumbosacral spondylosis without myelopathy Acute non-recurrent sinusitis of other sinus documented in this encounter [facility] [id number] Radiology Diagnostic study [facility] [place] [address] [place] [address] CT Scan Report Signed Patient: Taurus Garcia MR#: [id number] : 1945 Acct:[id number] Age/Sex: 78 / M ADM Date: 4 Loc: ER Room: Type: [facility] ER Attending Dr: Copies to: Juli Thomas APRN~ Ordering Provider: Juli Thomas APRN Date of Service: 07/09/24 CT/CT angio head: vision changes ([id number]) CT/CT angio neck: vision changes CTA OF THE HEAD AND NECK WITH CONTRAST COMPARISON: None CLINICAL DATA: Blurred vision, increased weakness and pain all over. Spiral images were obtained through the head and neck following 90 mL Isovue- 370. Sagittal and coronal MIP as well as 3-D volume rendered reconstructions ofthe carotid arteries and jackson of [place] were reviewed. Stenosis is evaluated [...] Aide Moe M.D.07/09/2024 4:50 PM Dictation Location: [place] [address] Transcribed By: [facility] 07/09/241649 Dictated By: Aide Moe MD 07/09/24 1636 Signed By: 07/09/249 [facility] Work Phone: 1([phone]) 149-954511-19-2024 [facility] [place] [address] [place] [address] CT Scan Report Signed Patient: Taurus Garcia MR#: [id number] : 1945 Acct:[id number] Age/Sex: 78 / M ADM Date: 4 Loc: ER Room: Type: [facility] ER Attending Dr: Copies to: Juli [...] Aide Moe M.D.07/09/2024 4:30 PM Dictation Location: [place] [address] Transcribed By: [facility] 07/09/24 1630 Dictated By: Aide Moe MD 07/09/24 162 Signed By: 07/09/24 1630 [facility] Work Phone: 1(480) 861-193011-14-2024 Discharge summary Author Silvestre Grover [facility] Note Date/Time July 04, 2024 7:50am [facility] [address] [place] [address] Discharge Summary Signed Patient: Taurus Garcia MR#: [id number] : 1945 Acct:[id number] Age/Sex: 78 / M Adm Date: 4 Loc: Room: [address] [place] [address]: Silvestre Grover MD Copies to: [...] weights, etc.). [facility] (or enter a different Home Health agency [...] Preparation H(pe,cb) 0.25-88.44 % Suppository 1 supp GA BID PRN (Reason: hemorrhoids) Qty: 0 0RF [...] normal Documented By: Silvestre Grover MD 07/04/24 0764 Signed By: <Electronically signed by Silvestre Grover MD> 07/04/24 0756 [facility] Work Phone: 1(493) 719-227811-14-[address] [address] Discharge Summary Signed Patient: Taurus Garcia MR#: [id number] : 1945 Acct:[id number] Age/Sex: 78 / M Adm Date: 4 Loc: Room: 9B4912-[address]: Silvestre Grover MD Copies to: [...] weights, etc.). Your [facility] Health agency is [facility] (or enter a different Home Health agency [...] Preparation H(pe,cb) 0.25-88.44 % Suppository 1 supp GA BID PRN (Reason: hemorrhoids) Qty: 0 0RF [...] 0 0RF Follow Up: [facility] [Outside] Komal Schaffer II, MD [Primary Care [...] MD 07/04/24 0745 Signed By: 07/04/24 0750 [facility]11-13-2024 Progress note Author Silvestre Grover [facility] Note Date/Time July 03, 2024 1:55pm [facility] [address] [place] [address] Physiatry(Rehab) Progress Note Signed Patient: Taurus Garcia MR#: [id number] : 1945 Acct:[id number] Age/Sex: 78 / M Adm Date: 4 Loc: Room: [address] [place] [address] Type: ADM IN Attending Dr: Silvestre Grover [...] mg 06/22/24 14:58 Bisacodyl 10 Mg Supp.Rect GA 06/22/25 14:57 DAILY PRN Constipation Diclofenac Sodium 2 gm 06/27/24 14:00 07/03/24 08:37 Diclofenac Sodium 1% Gel 100 Gm Tube TOPICAL 06/27/25 13:59 2 gm TID DORI Administration Docusate Sodium 100 mg 06/22/24 14:58 Docusate 100 Mg Capsule PO 06/22/25 14:57 BID PRN Constipation Docusate Sodium 283 mg 06/22/24 14:58 Docusate Enema 283 Mg/5 Ml Enema GA 06/22/25 14:57 DAILY PRN Constipation Fish Oil 1,000 mg 06/22/24 21:00 07/03/24 08:36 [place]-3/Fish Oil 1,000 Mg Capsule PO 06/22/25 20:59 [...] Multi-Ingredient Cream 1 applic 07/02/24 09:49 Lanolin Alcohol/Mo/W.Pet/Enloe (Minerin) 454 Gm Jar TOPICAL 07/02/25 20:59 [...] 20:59 40 mg BID DORI Administration Phenyleph/Shark Oil/[place] Butter 1 supp 06/22/24 14:57 Phenylephrine/[place] Butter 6.25 Mg/2211 Mg 1 Supp GA 06/22/25 14:56 BID PRN hemorrhoids Potassium Chloride [...] 08:59 15 mg DAILY DORI Administration Pyridostigmine Fay 60 mg 06/22/24 18:00 07/03/24 08:37 Pyridostigmine Fay 60 Mg Tablet PO 06/22/25 17:59 60 [...] equipment to enhance the patient's a functional islam Ensure adequate nutrition and hydration Sleep Discharge planning. Patient was personally seen by me, Dr. Grover, on the day of encounter, reviewed the history and the relevant portions of the chart, including current orders, allied health and disaster recovery consultant notes, labs/imaging and performed garcia elements of exam and I formulated the plan of care and facilitated the medical decision making. I completed a substantive portion of this encounter, the medical decision makingportion of this note in its entirety, including Allied health note review, nursing note review, disaster recovery consultant note review, discussion with nursing and case management, and more than 50% of my time was spent on counseling and coordination of care, time spent 25 minutes Documented By: Silvestre Grover MD 07/03/248 Signed By: <Electronically signed by Silvestre Grover MD> 07/03/24 9980 [facility] Work Phone: 1(158) 824-133311-13-2024 [place] [address] Physiatry(Rehab) Progress Note Signed Patient: Taurus Garcia MR#: [id number] : 1945 Acct:[id number] Age/Sex: 78 / M Adm Date: 4 Loc: Room: [address] [place] [address] Type: ADM IN Attending Dr: Silvestre Grover [...] mg 06/22/24 14:58 Bisacodyl 10 Mg Supp.Rect GA 06/22/25 14:57 DAILY PRN Constipation Diclofenac Sodium 2 gm 06/27/24 14:00 07/03/24 08:37 Diclofenac Sodium 1% Gel 100 Gm Tube TOPICAL 06/27/25 13:59 2 gm TID DORI Administration Docusate Sodium 100 mg 06/22/24 14:58 Docusate 100 Mg Capsule PO 06/22/25 14:57 BID PRN Constipation Docusate Sodium 283 mg 06/22/24 14:58 Docusate Enema 283 Mg/5 Ml Enema GA 06/22/25 14:57 DAILY PRN Constipation Fish Oil 1,000 mg 06/22/24 21:00 07/03/24 08:36 [place]-3/Fish Oil 1,000 Mg Capsule PO 06/22/25 20:59 [...] Multi-Ingredient Cream 1 applic 07/02/24 09:49 Lanolin Alcohol/Mo/W.Pet/Enloe (Minerin) 454 Gm Jar TOPICAL 07/02/25 20:59 [...] 20:59 40 mg BID DORI Administration Phenyleph/Shark Oil/[place] Butter 1 supp 06/22/24 14:57 Phenylephrine/[place] Butter 6.25 Mg/2211 Mg 1 Supp GA 06/22/25 14:56 BID PRN hemorrhoids Potassium Chloride [...] 08:59 15 mg DAILY DORI Administration Pyridostigmine Fay 60 mg 06/22/24 18:00 07/03/24 08:37 Pyridostigmine Fay 60 Mg Tablet PO 06/22/25 17:59 60 [...] equipment to enhance the patient's a functional islam Ensure adequate nutrition and hydration Sleep Discharge planning. Patient was personally seen by me, Dr. Grover, on the day of encounter, reviewed the history and therelevant portions of the chart, including current orders, allied health and disaster recovery consultant notes, labs/imaging and performed garcia elements of exam and I formulated the plan of care and facilitated the medical decision making. I completed a substantive portion of this encounter, the medical decision makingportion of this note in its entirety, including Allied health note review, nursing note review, disaster recovery consultant note review,discussion with nursing and case management, and more than 50% of my time was spent on counseling and coordination of care, time spent 25 minutes Documented By: Silvestre Grover MD 07/03/24 1354 Signed By: 07/03/24 1355 [facility]11-11-2024 Progress note Author Silvestre Grover [facility] Note Date/Time July 01, 2024 1:54pm [facility] [address] [place] [address] Physiatry(Rehab) Progress Note Signed Patient: Taurus Garcia MR#: [id number] : 1945 Acct:[id number] Age/Sex: 78 / M Adm Date: 4 Loc: Room: 6T5231-7 Type: ADM IN Attending Dr: Silvestre Grover [...] mg 06/22/24 14:58 Bisacodyl 10 Mg Supp.Rect GA 06/22/25 14:57 DAILY PRN Constipation Diclofenac Sodium 2 gm 06/27/24 14:00 07/01/24 08:00 Diclofenac Sodium 1% Gel 100 Gm Tube TOPICAL 06/27/25 13:59 2 gm TID DORI Administration Docusate Sodium 100 mg 06/22/24 14:58 Docusate 100 Mg Capsule PO 06/22/25 14:57 BID PRN Constipation Docusate Sodium 283 mg 06/22/24 14:58 Docusate Enema 283 Mg/5 Ml Enema GA 06/22/25 14:57 DAILY PRN Constipation Fish Oil 1,000 mg 06/22/24 21:00 07/01/24 07:59 [place]-3/Fish Oil 1,000 Mg Capsule PO 06/22/25 20:59 [...] 20:59 40 mg BID DORI Administration Phenyleph/Shark Oil/[place] Butter 1 supp 06/22/24 14:57 Phenylephrine/[place] Butter 6.25 Mg/2211 Mg 1 Supp GA 06/22/25 14:56 BID PRN hemorrhoids Potassium Chloride [...] 08:59 15 mg DAILY DORI Administration Pyridostigmine Fay 60 mg 06/22/24 18:00 07/01/24 07:59 Pyridostigmine Fay 60 Mg Tablet PO 06/22/25 17:59 60 [...] equipment to enhance the patient's a functional islam Ensure adequate nutrition and hydration Sleep Discharge planning. Patient was personally seen by me, Dr. Grover, on the day of encounter, reviewed the history and the relevant portions of the chart, including current orders, allied health and disaster recovery consultant notes, labs/imaging and performed garcia elements of exam and I formulated the plan of care and facilitated the medical decision making. I completed a substantive portion of this encounter, the medical decision makingportion of this note in its entirety, including Allied health note review, nursing note review, disaster recovery consultant note review, discussion with nursing and case management, and more than 50% of my time was spent on counseling and coordination of care, time spent 25 minutes Documented By: Silvestre Grover MD 07/01/24 1353 Signed By: <Electronically signed by Silvestre Grover MD> 07/01/24 1354 [facility] Work Phone: 1([phone]) 879-121011-11-2024 [place] [address] Physiatry(Rehab) Progress Note Signed Patient: Taurus Garcia MR#: [id number] : 1945 Acct:[id number] Age/Sex: 78 / M Adm Date: 4 Loc: Room: 5I3811-3 Type: ADM IN Attending Dr: Silvestre Grover [...] mg 06/22/24 14:58 Bisacodyl 10 Mg Supp.Rect GA 06/22/25 14:57 DAILY PRN Constipation Diclofenac Sodium 2 gm 06/27/24 14:00 07/01/24 08:00 Diclofenac Sodium 1% Gel 100 Gm Tube TOPICAL 06/27/25 13:59 2 gm TID DORI Administration Docusate Sodium 100 mg 06/22/24 14:58 Docusate 100 Mg Capsule PO 06/22/25 14:57 BID PRN Constipation Docusate Sodium 283 mg 06/22/24 14:58 Docusate Enema 283 Mg/5 Ml Enema GA 06/22/25 14:57 DAILY PRN Constipation Fish Oil 1,000 mg 06/22/24 21:00 07/01/24 07:59 [place]-3/Fish Oil 1,000 Mg Capsule PO 06/22/25 20:59 1,000 mg BID DORI Administration Furosemide 20 mg 06/24/24 08:00 07/01/24 07:58 Furosemide 20 Mg Tablet PO 06/24/25 07:59 20 mg DAILY.8A ODRI Administration Gabapentin 300 mg 06/22/24 21:00 07/01/24 [...] 20:59 40 mg BID DORI Administration Phenyleph/Shark Oil/[place] Butter 1 supp 06/22/24 14:57 Phenylephrine/[place] Butter 6.25 Mg/2211 Mg 1 Supp GA 06/22/25 14:56 BID PRN hemorrhoids Potassium Chloride [...] 08:59 15 mg DAILY DORI Administration Pyridostigmine Fay 60 mg 06/22/24 18:00 07/01/24 07:59 Pyridostigmine Fay 60 Mg Tablet PO 06/22/25 17:59 60 [...] equipment to enhance the patient's a functional islam Ensure adequate nutrition and hydration Sleep Discharge planning. Patient was personally seen by me, Dr. Grover, on the day of encounter, reviewed the history and therelevant portions of the chart, including current orders, allied health and disaster recovery consultant notes, labs/imaging and performed garcia elements of exam and I formulated the plan of care and facilitated the medical decision making. I completed a substantive portion of this encounter, the medical decision makingportion of this note in its entirety, including Allied health note review, nursing note review, disaster recovery consultant note review,discussion with nursing and case management, and more than 50% of my time was spent on counseling and coordination of care, time spent 25 minutes Documented By: Silvestre Grover MD 07/01/24 1353 Signed By: 07/01/24 1354 [facility]11-10-2024 Progress note Author Fidel Bennett [facility] Note Date/Time June 30, 2024 9:22pm [facility] [address] [place] [address] Physiatry(Rehab) Progress Note Signed Patient: Taruus Garcia MR#: [id number] : 1945 Acct:[id number] Age/Sex: 78 / M Adm Date: 4 Loc: Room: 8M2415-4 Type: ADM IN Attending Dr: Silvestre Grover [...] mg 06/22/24 14:58 Bisacodyl 10 Mg Supp.Rect GA 06/22/25 14:57 DAILY PRN Constipation Diclofenac Sodium 2 gm 06/27/24 14:00 06/30/24 14:34 Diclofenac Sodium 1% Gel 100 Gm Tube TOPICAL 06/27/25 13:59 Not Given TID DORI Docusate Sodium 100 mg 06/22/24 14:58 Docusate 100 Mg Capsule PO 06/22/25 14:57 BID PRN Constipation Docusate Sodium 283 mg 06/22/24 14:58 Docusate Enema 283 Mg/5 Ml Enema GA 06/22/25 14:57 DAILY PRN Constipation Fish Oil 1,000 mg 06/22/24 21:00 06/30/24 08:50 [place]-3/Fish Oil 1,000 Mg Capsule PO 06/22/25 20:59 [...] 20:59 40 mg BID DORI Administration Phenyleph/Shark Oil/[place] Butter 1 supp 06/22/24 14:57 Phenylephrine/[place] Butter 6.25 Mg/2211 Mg 1 Supp GA 06/22/25 14:56 BID PRN hemorrhoids Potassium Chloride [...] 08:59 15 mg DAILY DORI Administration Pyridostigmine Fay 60 mg 06/22/24 18:00 06/30/24 17:46 Pyridostigmine Fay 60 Mg Tablet PO 06/22/25 17:59 60 [...] equipment to enhance the patient's a functional islam Ensure adequate nutrition and hydration Sleep Discharge planning. Patient was personally seen by me, Dr. Bennett, on the day of encounter, reviewed the history and the relevant portions of the chart, including current orders, allied health and disaster recovery consultant notes, labs/imaging and performed garcia elements of exam and I formulated the plan of care and facilitated the medical decision making. I completed a substantive portion of this encounter, the medical decision makingportion of this note in its entirety, including Allied health note review, nursing note review, disaster recovery consultant note review, discussion with nursing and case management, and more than 50% of my time was spent on counseling and coordination of care, time spent 25 minutes Documented By: Fidel Bennett MD 2118 Signed By: <Electronically signed by Fidel Bennett MD> 06/30/242121 [facility] Work Phone: 1(877) 524-307311-10-[address] [address] Physiatry(Rehab) Progress Note Signed Patient: Taurus Garcia MR#: [id number] : 1945 Acct:[id number] Age/Sex: 78 / M Adm Date: 4 Loc: Room: [address] [place] [address] Type: ADM IN Attending Dr: Silvestre Grover [...] mg 06/22/24 14:58 Bisacodyl 10 Mg Supp.Rect GA 06/22/25 14:57 DAILY PRN Constipation Diclofenac Sodium 2 gm 06/27/24 14:00 06/30/24 14:34 Diclofenac Sodium 1% Gel 100 Gm Tube TOPICAL 06/27/25 13:59 Not Given TID DORI Docusate Sodium 100 mg 06/22/24 14:58 Docusate 100 Mg Capsule PO 06/22/25 14:57 BID PRN Constipation Docusate Sodium 283 mg 06/22/24 14:58 Docusate Enema 283 Mg/5 Ml Enema GA 06/22/25 14:57 DAILY PRN Constipation Fish Oil 1,000 mg 06/22/24 21:00 06/30/24 08:50 [place]-3/Fish Oil 1,000 Mg Capsule PO 06/22/25 20:59 [...] 20:59 40 mg BID DORI Administration Phenyleph/Shark Oil/[place] Butter 1 supp 06/22/24 14:57 Phenylephrine/[place] Butter 6.25 Mg/2211 Mg 1 Supp GA 06/22/25 14:56 BID PRN hemorrhoids Potassium Chloride [...] 08:59 15 mg DAILY DORI Administration Pyridostigmine Fay 60 mg 06/22/24 18:00 06/30/24 17:46 Pyridostigmine Fay 60 Mg Tablet PO 06/22/25 17:59 60 [...] equipment to enhance the patient's a functional islam Ensure adequate nutrition and hydration Sleep Discharge planning. Patient was personally seen by me, Dr. Bennett, on the day of encounter, reviewed the history and the relevant portions of the chart, including current orders, allied health and disaster recovery consultant notes, labs/imaging and performed garcia elements of exam and I formulated the plan of care and facilitated the medical decision making. I completed a substantive portion of this encounter, the medical decision makingportion of this note in its entirety, including Allied health note review, nursing note review, disaster recovery consultant note review,discussion with nursing and case management, and more than 50% of my time was spent on counseling and coordination of care, time spent 25 minutes Documented By: Fidel Bennett MD 2118 Signed By: 06/30/242121 [facility]11-10-2024 Progress note Author Susanne Sharma [facility] Note Date/Time June 30, 2024 4:13pm [facility] [address] [place] [address] Hospitalist Progress Note Signed Patient: Taurus Garcia MR#: [id number] : 1945 Acct:[id number] Age/Sex: 78 / M Adm Date: 4 Loc: Room: [address] [place] [address] Type: ADM IN Attending Dr: Silvestre Grover [...] mg 06/22/24 14:58 Bisacodyl 10 Mg Supp.Rect GA 06/22/25 14:57 DAILY PRN Constipation Diclofenac Sodium 2 gm 06/27/24 14:00 06/30/24 08:53 Diclofenac Sodium 1% Gel 100 Gm Tube TOPICAL 06/27/25 13:59 2 gm TID DORI Administration Docusate Sodium 100 mg 06/22/24 14:58 Docusate 100 Mg Capsule PO 06/22/25 14:57 BID PRN Constipation Docusate Sodium 283 mg 06/22/24 14:58 Docusate Enema 283 Mg/5 Ml Enema GA 06/22/25 14:57 DAILY PRN Constipation Fish Oil 1,000 mg 06/22/24 21:00 06/30/24 08:50 [place]-3/Fish Oil 1,000 Mg Capsule PO 06/22/25 20:59 [...] 20:59 40 mg BID DORI Administration Phenyleph/Shark Oil/[place] Butter 1 supp 06/22/24 14:57 Phenylephrine/[place] Butter 6.25 Mg/2211 Mg 1 Supp GA 06/22/25 14:56 BID PRN hemorrhoids Potassium Chloride 20 meq 06/22/24 14:57 Potassium Chloride Er 20 Meq Tab.Er.Prt PO 06/22/25 14:56 DAILY PRN Hypokalemia Potassium Chloride 10 meq 06/26/24 09:00 06/30/24 08:50 Potassium Chloride Er 10 Meq Capsule.Er PO 06/26/25 08:59 10 meq DAILY DORI Administration Prednisone 15 mg 06/24/24 09:00 06/30/24 08:50 Prednisone 5 Mg Tablet PO 06/24/25 08:59 15 mg DAILY DOIR Administration Pyridostigmine Fay 60 mg 06/22/24 18:00 06/30/24 08:50 Pyridostigmine Fay 60 Mg Tablet PO 06/22/25 17:59 60 [...] <Electronically signed by Kevin Leo MD> 06/30/24 1618 [facility] Work Phone: 1(130) 872-327511-10-2024 [place] [address] Hospitalist Progress Note Signed Patient: Taurus Garcia MR#: [id number] : 1945 Acct:[id number] Age/Sex: 78 / M Adm Date: 4 Loc: 5T Room: 6V0791-3 Type: ADM IN Attending Dr: Silvestre Grover [...] mg 06/22/24 14:58 Bisacodyl 10 Mg Supp.Rect GA 06/22/25 14:57 DAILY PRN Constipation Diclofenac Sodium 2 gm 06/27/24 14:00 06/30/24 08:53 Diclofenac Sodium 1% Gel 100 Gm Tube TOPICAL 06/27/25 13:59 2 gm TID DORI Administration Docusate Sodium 100 mg 06/22/24 14:58 Docusate 100 Mg Capsule PO 06/22/25 14:57 BID PRN Constipation Docusate Sodium 283 mg 06/22/24 14:58 Docusate Enema 283 Mg/5 Ml Enema GA 06/22/25 14:57 DAILY PRN Constipation Fish Oil 1,000 mg 06/22/24 21:00 06/30/24 08:50 [place]-3/Fish Oil 1,000 Mg Capsule PO 06/22/25 20:59 [...] 20:59 40 mg BID DORI Administration Phenyleph/Shark Oil/[place] Butter 1 supp 06/22/24 14:57 Phenylephrine/[place] Butter 6.25 Mg/2211 Mg 1 Supp GA 06/22/25 14:56 BID PRN hemorrhoids Potassium Chloride 20 meq 06/22/24 14:57 Potassium Chloride Er 20 Meq Tab.Er.Prt PO 06/22/25 14:56 DAILY PRN Hypokalemia Potassium Chloride 10 meq 06/26/24 09:00 06/30/24 08:50 Potassium Chloride Er 10 Meq Capsule.Er PO 06/26/25 08:59 10 meq DAILY DROI Administration Prednisone 15 mg 06/24/24 09:00 06/30/24 08:50 Prednisone 5 Mg Tablet PO 06/24/25 08:59 15 mg DAILY DORI Administration Pyridostigmine Fay 60 mg 06/22/24 18:00 06/30/24 08:50 Pyridostigmine Fay 60 Mg Tablet PO 06/22/25 17:59 60 [...] 1145 Signed By: 06/30/24 1159 06/30/24 1613 [facility]11-08-2024 Progress note Author Silvestre Grover [facility] Note Date/Time June 28, 2024 2 :35pm [facility] [address] [place] [address] Physiatry(Rehab) Progress Note Signed Patient: Taurus Garcia MR#: [id number] : 1945 Acct:[id number] Age/Sex: 78 / M Adm Date: 4 Loc: 5T Room: [address] [place] [address] Type: ADM IN Attending Dr: Silvestre Grover [...] mg 06/22/24 14:58 Bisacodyl 10 Mg Supp.Rect GA 06/22/25 14:57 DAILY PRN Constipation Diclofenac Sodium 2 gm 06/27/24 14:00 06/28/24 14:01 Diclofenac Sodium 1% Gel 100 Gm Tube TOPICAL 06/27/25 13:59 2 gm TID DORI Administration Docusate Sodium 100 mg 06/22/24 14:58 Docusate 100 Mg Capsule PO 06/22/25 14:57 BID PRN Constipation Docusate Sodium 283 mg 06/22/24 14:58 Docusate Enema 283 Mg/5 Ml Enema GA 06/22/25 14:57 DAILY PRN Constipation Fish Oil 1,000 mg 06/22/24 21:00 06/28/24 09:07 [place]-3/Fish Oil 1,000 Mg Capsule PO 06/22/25 20:59 [...] 20:59 40 mg BID DORI Administration Phenyleph/Shark Oil/[place] Butter 1 supp 06/22/24 14:57 Phenylephrine/[place] Butter 6.25 Mg/2211 Mg 1 Supp GA 06/22/25 14:56 BID PRN hemorrhoids Potassium Chloride [...] 08:59 15 mg DAILY DORI Administration Pyridostigmine Fay 60 mg 06/22/24 18:00 06/28/24 14:00 Pyridostigmine Fay 60 Mg Tablet PO 06/22/25 17:59 60 [...] equipment to enhance the patient's a functional islam Ensure adequate nutrition and hydration Sleep Discharge planning. Patient was personally seen by me, Dr. Grover, on the day of encounter, reviewed the history and the relevant portions of the chart, including current orders, allied health and disaster recovery consultant notes, labs/imaging and performed garcia elements of exam and I formulated the plan of care and facilitated the medical decision making. I completed a substantive portion of this encounter, the medical decision makingportion of this note in its entirety, including Allied health note review, nursing note review, disaster recovery consultant note review, discussion with nursing and case management, and more than 50% of my time was spent on counseling and coordination of care, time spent 35 minutes Documented By: Silvestre Grover MD 06/28/24 1433 Signed By: <Electronically signed by Silvestre Grover MD> 06/28/24 1435 [facility] Work Phone: 1([phone]) 675-332311-08-2024 [place] [address] Physiatry(Rehab) Progress Note Signed Patient: Taurus Garcia MR#: [id number] : 1945 Acct:[id number] Age/Sex: 78 / M Adm Date: 4 Loc: Room: [address] [place] [address] Type: ADM IN Attending Dr: Silvestre Grover [...] mg 06/22/24 14:58 Bisacodyl 10 Mg Supp.Rect GA 06/22/25 14:57 DAILY PRN Constipation Diclofenac Sodium 2 gm 06/27/24 14:00 06/28/24 14:01 Diclofenac Sodium 1% Gel 100 Gm Tube TOPICAL 06/27/25 13:59 2 gm TID DORI Administration Docusate Sodium 100 mg 06/22/24 14:58 Docusate 100 Mg Capsule PO 06/22/25 14:57 BID PRN Constipation Docusate Sodium 283 mg 06/22/24 14:58 Docusate Enema 283 Mg/5 Ml Enema GA 06/22/25 14:57 DAILY PRN Constipation Fish Oil 1,000 mg 06/22/24 21:00 06/28/24 09:07 [place]-3/Fish Oil 1,000 Mg Capsule PO 06/22/25 20:59 [...] 20:59 40 mg BID DORI Administration Phenyleph/Shark Oil/[place] Butter 1 supp 06/22/24 14:57 Phenylephrine/[place] Butter 6.25 Mg/2211 Mg 1 Supp GA 06/22/25 14:56 BID PRN hemorrhoids Potassium Chloride [...] 08:59 15 mg DAILY DORI Administration Pyridostigmine Fay 60 mg 06/22/24 18:00 06/28/24 14:00 Pyridostigmine Fay 60 Mg Tablet PO 06/22/25 17:59 60 [...] equipment to enhance the patient's a functional islam Ensure adequate nutrition and hydration Sleep Discharge planning. Patient was personally seen by me, Dr. Grover, on the day of encounter, reviewed the history and therelevant portions of the chart, including current orders, allied health and disaster recovery consultant notes, labs/imaging and performed garcia elements of exam and I formulated the plan of care and facilitated the medical decision making. I completed a substantive portion of this encounter, the medical decision makingportion of this note in its entirety, including Allied health note review, nursing note review, disaster recovery consultant note review,discussion with nursing and case management, and more than 50% of my time was spent on counseling and coordination of care, time spent 35 minutes Documented By: Silvestre Grover MD 06/28/24 1433 Signed By: 06/28/24 1435 [facility]11-07-2024 Progress note Author Silvestre Grover [facility] Note Date/Time June 27, 2024 1 1:35am [facility] [address] [place] [address] Physiatry(Rehab) Progress Note Signed Patient: Taurus Garcia MR#: [id number] : 1945 Acct:[id number] Age/Sex: 78 / M Adm Date: 4 Loc: Room: [address] [place] [address] Type: ADM IN Attending Dr: Silvestre Grover [...] mg 06/22/24 14:58 Bisacodyl 10 Mg Supp.Rect GA 06/22/25 14:57 DAILY PRN Constipation Diclofenac Sodium 2 gm 06/27/24 14:00 Diclofenac Sodium 1% Gel 100 Gm Tube TOPICAL 06/27/25 13:59 TID DORI Docusate Sodium 100 mg 06/22/24 14:58 Docusate 100 Mg Capsule PO 06/22/25 14:57 BID PRN Constipation Docusate Sodium 283 mg 06/22/24 14:58 Docusate Enema 283 Mg/5 Ml Enema GA 06/22/25 14:57 DAILY PRN Constipation Fish Oil 1,000 mg 06/22/24 21:00 06/27/24 09:00 [place]-3/Fish Oil 1,000 Mg Capsule PO 06/22/25 20:59 [...] 20:59 40 mg BID DORI Administration Phenyleph/Shark Oil/[place] Butter 1 supp 06/22/24 14:57 Phenylephrine/[place] Butter 6.25 Mg/2211 Mg 1 Supp GA 06/22/25 14:56 BID PRN hemorrhoids Potassium Chloride [...] 08:59 15 mg DAILY DORI Administration Pyridostigmine Fay 60 mg 06/22/24 18:00 06/27/24 09:01 Pyridostigmine Fay 60 Mg Tablet PO 06/22/25 17:59 60 [...] equipment to enhance the patient's a functional islam Ensure adequate nutrition and hydration Sleep Discharge planning. Patient was personally seen by me, Dr. Grover, on the day of encounter, reviewed the history and the relevant portions of the chart, including current orders, allied health and disaster recovery consultant notes, labs/imaging and performed garcia elements of exam and I formulated the plan of care and facilitated the medical decision making. I completed a substantive portion of this encounter, the medical decision makingportion of this note in its entirety, including Allied health note review, nursing note review, disaster recovery consultant note review, discussion with nursing and case management, and more than 50% of my time was spent on counseling and coordination of care, time spent 35 minutes Documented By: Silvestre Grover MD 06/27/241133 Signed By: <Electronically signed by Silvestre Grover MD> 06/27/24 [facility] [place]5 [facility] Work Phone: 1([phone]) 893-729811-07-2024 [place] [address] Physiatry(Rehab) Progress Note Signed Patient: Taurus Garcia MR#: [id number] : 1945 Acct:[id number] Age/Sex: 78 / M Adm Date: 4 Loc: 5T Room: [id number] Type: ADM IN Attending Dr: Silvestre Grover [...] mg 06/22/24 14:58 Bisacodyl 10 Mg Supp.Rect GA 06/22/25 14:57 DAILY PRN Constipation Diclofenac Sodium 2 gm 06/27/24 14:00 Diclofenac Sodium 1% Gel 100 Gm Tube TOPICAL 06/27/25 13:59 TID DORI Docusate Sodium 100 mg 06/22/24 14:58 Docusate 100 Mg Capsule PO 06/22/25 14:57 BID PRN Constipation Docusate Sodium 283 mg 06/22/24 14:58 Docusate Enema 283 Mg/5 Ml Enema GA 06/22/25 14:57 DAILY PRN Constipation Fish Oil 1,000 mg 06/22/24 21:00 06/27/24 09:00 [place]-3/Fish Oil 1,000 Mg Capsule PO 06/22/25 20:59 [...] 20:59 40 mg BID DORI Administration Phenyleph/Shark Oil/[place] Butter 1 supp 06/22/24 14:57 Phenylephrine/[place] Butter 6.25 Mg/2211 Mg 1 Supp GA 06/22/25 14:56 BID PRN hemorrhoids Potassium Chloride [...] 08:59 15 mg DAILY DORI Administration Pyridostigmine Fay 60 mg 06/22/24 18:00 06/27/24 09:01 Pyridostigmine Fay 60 Mg Tablet PO 06/22/25 17:59 60 [...] equipment to enhance the patient's a functional islam Ensure adequate nutrition and hydration Sleep Discharge planning. Patient was personally seen by me, Dr. Grover, on the day of encounter, reviewed the history and therelevant portions of the chart, including current orders, allied health and disaster recovery consultant notes, labs/imaging and performed garcia elements of exam and I formulated the plan of care and facilitated the medical decision making. I completed a substantive portion of this encounter, the medical decision makingportion of this note in its entirety, including Allied health note review, nursing note review, disaster recovery consultant note review,discussion with nursing and case management, and more than 50% of my time was spent on counseling and coordination of care, time spent 35 minutes Documented By: Silvestre Grover MD 06/27/241133 Signed By: 06/27/24 1135 [facility]11-06-2024 Progress note Author Silvestre Grover [facility] Note Date/Time June 26, 2024 1 :34pm [facility] [address] [place] [address] Physiatry(Rehab) Progress Note Signed Patient: Taurus Garcia MR#: [id number] : 1945 Acct:[id number] Age/Sex: 78 / M Adm Date: 4 Loc: Room: [address] [place] [address] Type: ADM IN Attending Dr: Silvestre Grover [...] mg 06/22/24 14:58 Bisacodyl 10 Mg Supp.Rect GA 06/22/25 14:57 DAILY PRN Constipation Docusate Sodium 100 mg 06/22/24 14:58 Docusate 100 Mg Capsule PO 06/22/25 14:57 BID PRN Constipation Docusate Sodium 283 mg 06/22/24 14:58 Docusate Enema 283 Mg/5 Ml Enema GA 06/22/25 14:57 DAILY PRN Constipation Fish Oil 1,000 mg 06/22/24 21:00 06/26/24 08:26 [place]-3/Fish Oil 1,000 Mg Capsule PO 06/22/25 20:59 [...] 20:59 40 mg BID DORI Administration Phenyleph/Shark Oil/[place] Butter 1 supp 06/22/24 14:57 Phenylephrine/[place] Butter 6.25 Mg/2211 Mg 1 Supp GA 06/22/25 14:56 BID PRN hemorrhoids Potassium Chloride [...] 08:59 15 mg DAILY DORI Administration Pyridostigmine Fay 60 mg 06/22/24 18:00 06/26/24 08:26 Pyridostigmine Fay 60 Mg Tablet PO 06/22/25 17:59 60 [...] equipment to enhance the patient's a functional islam Ensure adequate nutrition and hydration Sleep Discharge planning. Patient was personally seen by me, Dr. Grover, on the day of encounter, reviewed the history and the relevant portions of the chart, including current orders, allied health and disaster recovery consultant notes, labs/imaging and performed garcia elements of exam and I formulated the plan of care and facilitated the medical decision making. I completed a substantive portion of this encounter, the medical decision makingportion of this note in its entirety, including Allied health note review, nursing note review, disaster recovery consultant note review, discussion with nursing and case management, and more than 50% of my time was spent on counseling and coordination of care, time spent 37 minutes Documented By: Silvestre Grover MD 06/26/24 1331 Signed By: <Electronically signed by Silvestre Grover MD> 06/26/24 133 [facility] Work Phone: 1(851) 867-573011-06-2024 [place] [address] Physiatry(Rehab) Progress Note Signed Patient: Taurus Garcia MR#: [id number] : 1945 Acct:[id number] Age/Sex: 78 / M Adm Date: 4 Loc: Room: [address] [place] [address] Type: ADM IN Attending Dr: Silvestre Grover [...] mg 06/22/24 14:58 Bisacodyl 10 Mg Supp.Rect GA 06/22/25 14:57 DAILY PRN Constipation Docusate Sodium 100 mg 06/22/24 14:58 Docusate 100 Mg Capsule PO 06/22/25 14:57 BID PRN Constipation Docusate Sodium 283 mg 06/22/24 14:58 Docusate Enema 283 Mg/5 Ml Enema GA 06/22/25 14:57 DAILY PRN Constipation Fish Oil 1,000 mg 06/22/24 21:00 06/26/24 08:26 [place]-3/Fish Oil 1,000 Mg Capsule PO 06/22/25 20:59 [...] 20:59 40 mg BID DORI Administration Phenyleph/Shark Oil/[place] Butter 1 supp 06/22/24 14:57 Phenylephrine/[place] Butter 6.25 Mg/2211 Mg 1 Supp GA 06/22/25 14:56 BID PRN hemorrhoids Potassium Chloride [...] 08:59 15 mg DAILY DORI Administration Pyridostigmine Fay 60 mg 06/22/24 18:00 06/26/24 08:26 Pyridostigmine Fay 60 Mg Tablet PO 06/22/25 17:59 60 [...] equipment to enhance the patient's a functional islam Ensure adequate nutrition and hydration Sleep Discharge planning. Patient was personally seen by me, Dr. Grover, on the day of encounter, reviewed the history and therelevant portions of the chart, including current orders, allied health and disaster recovery consultant notes, labs/imaging and performed garcia elements of exam and I formulated the plan of care and facilitated the medical decision making. I completed a substantive portion of this encounter, the medical decision makingportion of this note in its entirety, including Allied health note review, nursing note review, disaster recovery consultant note review,discussion with nursing and case management, and more than 50% of my time was spent on counseling and coordination of care, time spent 37 minutes Documented By: Silvestre Grover MD 06/26/241330 Signed By: 06/26/24 133 [facility]11-05-2024 Progress note Author Silvestre Grover [facility] Note Date/Time June 25, 2024 4 :17pm [facility] [address] [place] [address] Physiatry(Rehab) Progress Note Signed Patient: Taurus Garcia MR#: [id number] : 1945 Acct:[id number] Age/Sex: 78 / M Adm Date: 4 Loc: Room: [id number] Type: ADM IN Attending Dr: Silvestre Grover [...] mg 06/22/24 14:58 Bisacodyl 10 Mg Supp.Rect GA 06/22/25 14:57 DAILY PRN Constipation Docusate Sodium 100 mg 06/22/24 14:58 Docusate 100 Mg Capsule PO 06/22/25 14:57 BID PRN Constipation Docusate Sodium 283 mg 06/22/24 14:58 Docusate Enema 283 Mg/5 Ml Enema GA 06/22/25 14:57 DAILY PRN Constipation Fish Oil 1,000 mg 06/22/24 21:00 06/25/24 09:24 [place]-3/Fish Oil 1,000 Mg Capsule PO 06/22/25 20:59 [...] 20:59 40 mg BID DORI Administration Phenyleph/Shark Oil/[place] Butter 1 supp 06/22/24 14:57 Phenylephrine/[place] Butter 6.25 Mg/2211 Mg 1 Supp GA 06/22/25 14:56 BID PRN hemorrhoids Potassium Chloride 20 meq 06/22/24 14:57 Potassium Chloride Er 20 Meq Tab.Er.Prt PO 06/22/25 14:56 DAILY PRN Hypokalemia Potassium Chloride 10 meq 06/26/24 09:00 Potassium Chloride Er 10 Meq Capsule.Er PO 06/26/25 08:59 DAILY DORI Prednisone 15 mg 06/24/24 09:00 06/25/24 09:24 Prednisone 5 Mg Tablet PO 06/24/25 08:59 15 mg DAILY DORI Administration Pyridostigmine Fay 60 mg 06/22/24 18:00 06/25/24 09:24 Pyridostigmine Fay 60 Mg Tablet PO 06/22/25 17:59 60 [...] equipment to enhance the patient's a functional islam Ensure adequate nutrition and hydration Sleep Discharge planning. Patient was personally seen by me, Dr. Grover, on the day of encounter, reviewed the history and the relevant portions of the chart, including current orders, allied health and disaster recovery consultant notes, labs/imaging and performed garcia elements of exam and I formulated the plan of care and facilitated the medical decision making. I completed a substantive portion of this encounter, the medical decision makingportion of this note in its entirety, including Allied health note review, nursing note review, disaster recovery consultant note review, discussion with nursing and case management, and more than 50% of my time was spent on counseling and coordination of care, time spent 45 minutes In addition to above, patient's case reviewed at weekly team conference, discussed progress and goals of care, barriers/problems to date and discharge planning. Documented By: Silvestre Grover MD 06/25/24 1058 Signed By: <Electronically signed by Silvestre Grover MD> 06/25/24 1970 [facility] Work Phone: 1(954) 593-133711-05-2024 History and physical note Author Antonia Grier [facility] Note Date/Time June 25, 2024 3 :19pm [facility] [address] [place] [address] Physiatry (Rehab) H&P Signed Patient: Taurus Garcia MR#: [id number] : 1945 Acct:[id number] Age/Sex: 78 / M Adm Date: 4 Loc: 5T Room: 6E0367-7 Type: ADM IN Attending Dr: Silvestre Grover [...] burn and make treatment recommendations. [facility] Medical History GERD (gastroesophageal reflux disease) Chronic [...] mg PO DAILY 12/27/17 [History Confirmed 06/19/24] tsrhivht-wjt-etlij acid 0.4 mg-lycopene 300 mcg-lutein 250 mcg [...] rectal suppository (Preparation H(phenyleph,cocoa buttr)) 1 supp GA BID PRN hemorrhoids #0 ea 06/22/24 [Rx] [...] 24 hour daily monitoring and intervention from Planting Supervisor as well as other consulting physicians including internal medicine as well as 24 hour daily hot air furnace installer and repairer nursing - for medical safe / optimal [...] equipment to enhance the patient's a functional islam Ensure adequate nutrition and hydration Sleep Discharge planning. I spent 43 minutes for services, including jwpq-cw-[id number] encounter with the patient, discussion of the case, plan of care, and exam; and egfnxnz-vj-ecut activities, such as reviewing pertinent disaster recovery consultant documentation, recent therapy notes, laboratory and radiology studies, and discussion of case with care team including physician, nursing, skilled nursing case manager, and therapists. More than 50 % of time was spent on patient/family counseling or coordination of care. Patient was personally seen by me, Dr. Bennett, on the day of encounter, within 24 hours of rehab admission, reviewed the history and the relevant portions of the chart, including current orders, allied health and disaster recovery consultant notes, labs/imaging and performed garcia elements of exam and I formulated the plan of care and facilitated the medical decision making. I completed a substantive portion of this encounter, the medical decision making portion of this note in its entirety, including Allied health note review, nursing note review, disaster recovery consultant note review, discussion with nursing and case management, and more than 50% of my time was spent on counseling and coordination of care, time spent 45 minutes Documented By: Antonia Grier APRN 06/22/24 1 500 Signed By: <Electronically signed by ZACH Grier> 06/23/24 1114 <Electronically signed by Silvestre Grover MD> 06/25/24 1519 <Electronically signed by Fidel Bennett MD> 06/24/24 1352 [facility] Work Phone: 1(316) 400-384611-05-2024 [place] [id number] Physiatry(Rehab) Progress Note Signed Patient: Taurus Garcia MR#: [id number] : 1945 Acct:[id number] Age/Sex: 78 / M Adm Date: 4 Loc: Room: 5J6453-9 Type: ADM IN Attending Dr: Silvestre Grover [...] mg 06/22/24 14:58 Bisacodyl 10 Mg Supp.Rect GA 06/22/25 14:57 DAILY PRN Constipation Docusate Sodium 100 mg 06/22/24 14:58 Docusate 100 Mg Capsule PO 06/22/25 14:57 BID PRN Constipation Docusate Sodium 283 mg 06/22/24 14:58 Docusate Enema 283 Mg/5 Ml Enema GA 06/22/25 14:57 DAILY PRN Constipation Fish Oil 1,000 mg 06/22/24 21:00 06/25/24 09:24 [place]-3/Fish Oil 1,000 Mg Capsule PO 06/22/25 20:59 [...] 20:59 40 mg BID DORI Administration Phenyleph/Shark Oil/[place] Butter 1 supp 06/22/24 14:57 Phenylephrine/[place] Butter 6.25 Mg/2211 Mg 1 Supp GA 06/22/25 14:56 BID PRN hemorrhoids Potassium Chloride 20 meq 06/22/24 14:57 Potassium Chloride Er 20 Meq Tab.Er.Prt PO 06/22/25 14:56 DAILY PRN Hypokalemia Potassium Chloride 10 meq 06/26/24 09:00 Potassium Chloride Er 10 Meq Capsule.Er PO 06/26/25 08:59 DAILY DORI Prednisone 15 mg 06/24/24 09:00 06/25/24 09:24 Prednisone 5 Mg Tablet PO 06/24/25 08:59 15 mg DAILY DORI Administration Pyridostigmine Fay 60 mg 06/22/24 18:00 06/25/24 09:24 Pyridostigmine Fay 60 Mg Tablet PO 06/22/25 17:59 60 [...] equipment to enhance the patient's a functional islam Ensure adequate nutrition and hydration Sleep Discharge planning. Patient was personally seen by me, Dr. Grover, on the day of encounter, reviewed the history and therelevant portions of the chart, including current orders, allied health and disaster recovery consultant notes, labs/imaging and performed garcia elements of exam and I formulated the plan of care and facilitated the medical decision making. I completed a substantive portion of this encounter, the medical decision makingportion of this note in its entirety, including Allied health note review, nursing note review, disaster recovery consultant note review,discussion with nursing and case management, and more than 50% of my time was spent on counseling and coordination of care, time spent 45 minutes In addition to above, patient's case reviewed at weekly team conference, discussed progress and goals of care, barriers/problems to date and discharge planning. Documented By: Silvestre Grover MD 06/25/24 1052 Signed By: 06/25/24 [facility]7 [facility]11-05-2024 [place] [address] Physiatry (Rehab) H&P Signed Patient: Taurus Garcia MR#: [id number] : 1945 Acct:[id number] Age/Sex: 78 / M Adm Date: 4 Loc: Room: 8P8616-9 Type: ADM IN Attending Dr: Silvestre Grover [...] days. No consideration for [facility] at [facility]. Pulmonary services consulted and assisted with [...] burn and make treatment recommendations. [facility] Medical History GERD (gastroesophageal reflux disease) Chronic [...] mg PO DAILY 12/27/17 [History Confirmed 06/19/24] hmekjkuk-qtv-qdxhk acid 0.4 mg-lycopene 300 mcg-lutein 250 mcg [...] % rectal suppository (Preparation H(phenyleph,cocoa buttr))1 supp GA BID PRN hemorrhoids #0 ea 06/22/24 [Rx] [...] 24 hour daily monitoring and intervention from Planting Supervisor as well as other consulting physicians including internal medicine as well as 24 hour daily hot air furnace installer and repairer nursing - for medical safe / optimal [...] equipment to enhance the patient's a functional islam Ensure adequate nutrition and hydration Sleep Discharge planning. I spent 43 minutes for services, including vdko-pk-[id number] encounter with the patient, discussion of the case, plan of care, and exam; and euwccml-vv-nlub activities, such as reviewing pertinent disaster recovery consultant documentation, recent therapy notes, laboratory and radiology studies, and discussion of case with care team including physician, nursing, skilled nursing case manager, and therapists. More than 50 % of time was spent on patient/family counseling or coordination of care. Patient was personally seen by me, Dr. Bennett, on the day of encounter, within 24 hours of rehab admission, reviewed the history and the relevant portions of the chart, including current orders, allied health and disaster recovery consultant notes, labs/imaging and performed garcia elements of exam and I formulatedthe plan of care and facilitated the medical decision making. I completed a substantive portion of this encounter, the medical decision making portion of this note in its entirety, including Allied health note review, nursing note review, disaster recovery consultant note review, discussion with nursing and case management, and more than 50% of my time was spent on counseling and coordination of care, time spent 45 minutes Documented By: Antonia Grier APRN 06/22/24 1 500 Signed By: 06/23/24 1114 06/25/24 1519 06/24/24 1352 [facility]11-04-2024 Progress note Author Fidel Bennett [facility] Note Date/Time June 24, 2024 1 :59pm [facility] [address] [place] [address] Physiatry(Rehab) Progress Note Signed Patient: Taurus Garcia MR#: [id number] : 1945 Acct:[id number] Age/Sex: 78 / M Adm Date: 4 Loc: Room: 0H1415-0 Type: ADM IN Attending Dr: Silvestre Grover [...] mg 06/22/24 14:58 Bisacodyl 10 Mg Supp.Rect GA 06/22/25 14:57 DAILY PRN Constipation Docusate Sodium 100 mg 06/22/24 14:58 Docusate 100 Mg Capsule PO 06/22/25 14:57 BID PRN Constipation Docusate Sodium 283 mg 06/22/24 14:58 Docusate Enema 283 Mg/5 Ml Enema GA 06/22/25 14:57 DAILY PRN Constipation Fish Oil 1,000 mg 06/22/24 21:00 06/24/24 08:20 [place]-3/Fish Oil 1,000 Mg Capsule PO 06/22/25 20:59 [...] 20:59 40 mg BID DORI Administration Phenyleph/Shark Oil/[place] Butter 1 supp 06/22/24 14:57 Phenylephrine/[place] Butter 6.25 Mg/2211 Mg 1 Supp GA 06/22/25 14:56 BID PRN hemorrhoids Potassium Chloride 20 meq 06/22/24 14:57 Potassium Chloride Er 20 Meq Tab.Er.Prt PO 06/22/25 14:56 DAILY PRN Hypokalemia Potassium Chloride 10 meq 06/26/24 09:00 Potassium Chloride Er 10 Meq Capsule.Er PO 06/26/25 08:59 DAILY DORI Prednisone 15 mg 06/24/24 09:00 06/24/24 08:20 Prednisone 5 Mg Tablet PO 06/24/25 08:59 15 mg DAILY DORI Administration Pyridostigmine Fay 60 mg 06/22/24 18:00 06/24/24 08:20 Pyridostigmine Fay 60 Mg Tablet PO 06/22/25 17:59 60 [...] equipment to enhance the patient's a functional islam Ensure adequate nutrition and hydration Sleep Discharge planning. Patient was personally seen by me, Dr. Bennett, on the day of encounter, reviewed the history and the relevant portions of the chart, including current orders, allied health and disaster recovery consultant notes, labs/imaging and performed garcia elements of exam and I formulated the plan of care and facilitated the medical decision making. I completed a substantive portion of this encounter, the medical decision makingportion of this note in its entirety, including Allied health note review, nursing note review, disaster recovery consultant note review, discussion with nursing and case management, and more than 50% of my time was spent on counseling and coordination of care, time spent 25 minutes Documented By: Fidel Bennett MD 1352 Signed By: <Electronically signed by Fidel Bennett MD> 06/24/24 1359 [facility] Work Phone: 1(820) 918-392011-04-2024 [place] [address] Physiatry(Rehab) Progress Note Signed Patient: Taurus Garcia MR#: [id number] : 1945 Acct:[id number] Age/Sex: 78 / M Adm Date: 4 Loc: Room: 5S5553-0 Type: ADM IN Attending Dr: Silvestre Grover [...] days. No consideration for [facility] at [facility]. Pulmonary services consulted and assisted with [...] mg 06/22/24 14:58 Bisacodyl 10 Mg Supp.Rect GA 06/22/25 14:57 DAILY PRN Constipation Docusate Sodium 100 mg 06/22/24 14:58 Docusate 100 Mg Capsule PO 06/22/25 14:57 BID PRN Constipation Docusate Sodium 283 mg 06/22/24 14:58 Docusate Enema 283 Mg/5 Ml Enema GA 06/22/25 14:57 DAILY PRN Constipation Fish Oil 1,000 mg 06/22/24 21:00 06/24/24 08:20 [place]-3/Fish Oil 1,000 Mg Capsule PO 06/22/25 20:59 [...] 20:59 40 mg BID DORI Administration Phenyleph/Shark Oil/[place] Butter 1 supp 06/22/24 14:57 Phenylephrine/[place] Butter 6.25 Mg/2211 Mg 1 Supp GA 06/22/25 14:56 BID PRN hemorrhoids Potassium Chloride 20 meq 06/22/24 14:57 Potassium Chloride Er 20 Meq Tab.Er.Prt PO 06/22/25 14:56 DAILY PRN Hypokalemia Potassium Chloride 10 meq 06/26/24 09:00 Potassium Chloride Er 10 Meq Capsule.Er PO 06/26/25 08:59 DAILY DORI Prednisone 15 mg 06/24/24 09:00 06/24/24 08:20 Prednisone 5 Mg Tablet PO 06/24/25 08:59 15 mg DAILY DORI Administration Pyridostigmine Fay 60 mg 06/22/24 18:00 06/24/24 08:20 Pyridostigmine Fay 60 Mg Tablet PO 06/22/25 17:59 60 [...] equipment to enhance the patient's a functional islam Ensure adequate nutrition and hydration Sleep Discharge planning. Patient was personally seen by me, Dr. Bennett, on the day of encounter, reviewed the history and the relevant portions of the chart, including current orders, allied health and disaster recovery consultant notes, labs/imaging and performed garcia elements of exam and I formulated the plan of care and facilitated the medical decision making. I completed a substantive portion of this encounter, the medical decision makingportion of this note in its entirety, including Allied health note review, nursing note review, disaster recovery consultant note review,discussion with nursing and case management, and more than 50% of my time was spent on counseling and coordination of care, time spent 25 minutes Documented By: Fidel Bennett MD 1352 Signed By: 06/24/24 1359 [facility]11-03-2024 Consult note Author Meera Vargas [facility] Note Date/Time June 23, 2024 5 :21pm [facility] [address] [place] [address] Hospitalist Consult Note Signed Patient: Taurus Garcia MR#: [id number] : 1945 Acct:[id number] Age/Sex: 78 / M Adm Date: 4 Loc: Room: 5W4247-5 Type: ADM IN Attending Dr: Silvestre Grover [...] noted below or in HPI [facility] Medical History (Updated 06/23/24 @ 16:23 by [...] mg PO DAILY 12/27/17 [History Confirmed 06/22/24] hlnjzxbe-nfq-balcp acid 0.4 mg-lycopene 300 mcg-lutein 250 mcg [...] rectal suppository (Preparation H(phenyleph,cocoa buttr)) 1 supp GA BID PRN hemorrhoids #0 ea 06/22/24 [Rx [...] mg 06/22/24 14:58 Bisacodyl 10 Mg Supp.Rect GA 06/22/25 14:57 DAILY PRN Constipation Docusate Sodium 100 mg 06/22/24 14:58 Docusate 100 Mg Capsule PO 06/22/25 14:57 BID PRN Constipation Docusate Sodium 283 mg 06/22/24 14:58 Docusate Enema 283 Mg/5 Ml Enema GA 06/22/25 14:57 DAILY PRN Constipation Fish Oil 1,000 mg 06/22/24 21:00 06/23/24 09:15 [place]-3/Fish Oil 1,000 Mg Capsule PO 06/22/25 20:59 [...] 20:59 40 mg BID DORI Administration Phenyleph/Shark Oil/[place] Butter 1 supp 06/22/24 14:57 Phenylephrine/[place] Butter 6.25 Mg/2211 Mg 1 Supp GA 06/22/25 14:56 BID PRN hemorrhoids Potassium Chloride [...] Tablet PO 06/24/25 08:59 DAILY DORI Pyridostigmine Fay 60 mg 06/22/24 18:00 06/23/24 13:19 Pyridostigmine Fay 60 Mg Tablet PO 06/22/25 17:59 60 [...] % (Auto) 80.3, Lymph % (Auto) 10.7, [place] % (Auto) 8.7, Eos % (Auto) 0.1, Baso % (Auto) 0.2, Nucleat RBC Rel Count 0.1, Neut # (Auto) 9.1 H, Lymph # (Auto) 1.2, [place] # (Auto) 1.0 H, Eos # (Auto) [...] Mateo Horne DO> 06/23/24 1721 [facility] Work Phone: 1(316) 340-479111-03-2024 [place] [address] Hospitalist Consult Note Signed Patient: Taurus Garcia MR#: [id number] : 1945 Acct:[id number] Age/Sex: 78 / M Adm Date: 4 Loc: Room: [address] [place] [address] Type: ADM IN Attending Dr: Silvestre Grover [...] noted below or in HPI [facility] Medical History (Updated 06/23/24 @ 16:23 by [...] mg PO DAILY 12/27/17 [History Confirmed 06/22/24] nkaycife-iab-lnqlk acid 0.4 mg-lycopene 300 mcg-lutein 250 mcg [...] % rectal suppository (Preparation H(phenyleph,cocoa buttr))1 supp GA BID PRN hemorrhoids #0 ea 06/22/24 [Rx [...] mg 06/22/24 14:58 Bisacodyl 10 Mg Supp.Rect GA 06/22/25 14:57 DAILY PRN Constipation Docusate Sodium 100 mg 06/22/24 14:58 Docusate 100 Mg Capsule PO 06/22/25 14:57 BID PRN Constipation Docusate Sodium 283 mg 06/22/24 14:58 Docusate Enema 283 Mg/5 Ml Enema GA 06/22/25 14:57 DAILY PRN Constipation Fish Oil 1,000 mg 06/22/24 21:00 06/23/24 09:15 [place]-3/Fish Oil 1,000 Mg Capsule PO 06/22/25 20:59 [...] 20:59 40 mg BID DORI Administration Phenyleph/Shark Oil/[place] Butter 1 supp 06/22/24 14:57 Phenylephrine/[place] Butter 6.25 Mg/2211 Mg 1 Supp GA 06/22/25 14:56 BID PRN hemorrhoids Potassium Chloride [...] Tablet PO 06/24/25 08:59 DAILY DORI Pyridostigmine Fay 60 mg 06/22/24 18:00 06/23/24 13:19 Pyridostigmine Fay 60 Mg Tablet PO 06/22/25 17:59 60 [...] % (Auto) 80.3, Lymph % (Auto) 10.7, [place] % (Auto) 8.7, Eos % (Auto) 0.1, Baso % (Auto) 0.2, Nucleat RBC Rel Count 0.1, Neut # (Auto) 9.1 H, Lymph # (Auto) 1.2, [place] # (Auto) 1.0 H, Eos # (Auto) [...] Hospitalist attending physician. Documented By: Meera Vargas, [employer] MANAGER 11/11 1451 Signed By: 06/23/24 1624 06/23/24 1721 [facility]11-01-2024 Consult note Author Fidel Bennett [facility] June 21, 2024 2:55pm Note Date/Time June 21, 2024 1 2:47pm [facility] [address] [place] [address] Physiatry (Rehab) Consult Note Signed Patient: Taurus Garcia MR#: [id number] : 1945 Acct:[id number] Age/Sex: 78 / M Adm Date: 4 Loc: Room: [address] [place] [address] Type: ADM IN Attending Dr: Mateo Horne [...] noted below or in HPI [facility] Medical History (Updated 06/19/24 @ 18:52 by [...] mg PO DAILY 12/27/17 [History Confirmed 06/19/24] vpjwprvd-ods-jycja acid 0.4 mg-lycopene 300 mcg-lutein 250 mcg [...] % (Auto) 81.8 Lymph % (Auto) 8.9 [place] % (Auto) 9.1 Eos % (Auto) 0.0 Baso % (Auto) 0.2 Nucleat RBC Rel Count 0.1 Neut # (Auto) 9.6 H Lymph # (Auto) 1.0 [place] # (Auto) 1.1 H Eos # (Auto) [...] chart, including current orders, allied health and disaster recovery consultant notes, labs/imaging and performed garcia elements of exam and I formulated the plan of care and facilitated the medical decision making. I completed a substantive portion of this encounter, the medical decision makingportion of this note in its entirety, including Allied health note review, nursing note review, disaster recovery consultant note review, discussion with nursing and case management, and more than 50% of my time was spent on counseling and coordination of care, time spent 60 minutes Documented By: Fidel Bennett MD 1897 Signed By: <Electronically signed by Fidel Bennett MD> 06/21/24 4504 [facility] Work Phone: 1(102) 306-268411-01-2024 Progress note Author Jamel Packer [facility] June 21, 2024 2:12pm Note Date/Time June 21, 2024 2 :12pm [facility] [address] [place] [address] Neurology Progress Note Signed Patient: Taurus Garcia MR#: [id number] : 1945 Acct:[id number] Age/Sex: 78 / M Adm Date: 4 Loc: Room: [address] [place] [address] Type: ADM IN Attending Dr: Mateo Horne [...] signed by Jamel Packer DO> 06/21/24 1412 [facility] Work Phone: 1(791) 863-100011-01-2024 Progress note Author Mateo Horne [facility] June 21, 2024 2:09pm Note Date/Time June 21, 2024 2 :03pm [facility] [address] [place] [address] Hospitalist Progress Note Signed Patient: Taurus Garcia MR#: [id number] : 1945 Acct:[id number] Age/Sex: 78 / M Adm Date: 4 Loc: Room: [address] [place] [address] Type: ADM IN Attending Dr: Mateo Horne [...] 20:59 40 mg BID DORI Administration Phenyleph/Shark Oil/[place] Butter 1 supp 06/19/24 21:00 Phenylephrine/[place] Butter 6.25 Mg/2211 Mg 1 Supp GA 06/19/25 20:59 BID PRN hemorrhoids Potassium Chloride [...] 09:01 60 mg DAILY DORI Administration Pyridostigmine Fay 90 mg 06/19/24 18:00 06/21/24 08:15 Pyridostigmine Fay 60 Mg Tablet PO 06/19/25 17:59 90 [...] elevated blood pressure to be problematic and 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 Documented By: Mateo Horne DO 3611 Signed By: <Electronically signed by Mateo Horne DO> 06/21/24 3651 [facility] Work Phone: 1(548) 227-285011-01-2024 Progress note Author Abi Biswas [facility] June 21, 2024 10:32am Note Date/Time June 21, 2024 1 0:32am [facility] [address] [place], [place] [address] Pulmonology Progress Note Signed Patient: Taurus Garcia MR#: [id number] : 1945 Acct:[id number] Age/Sex: 78 / M Adm Date: 4 Loc: 3T Room: [address] [place] [address] Type: ADM IN Attending Dr: Mateo Horne [...] signed by Abi Biswas MD> 06/21/24 1032 [facility] Work Phone: 1(509) 818-373110-31-2024 Progress note Author Jamel Packer [facility] June 20, 2024 2:46pm Note Date/Time June 20, 2024 2 :46pm [facility] [address] [place] [address] Neurology Progress Note Signed Patient: Taurus Garcia MR#: [id number] : 1945 Acct:[id number] Age/Sex: 78 / M Adm Date: 4 Loc: Room: [address] [place] [address] Type: ADM IN Attending Dr: Mateo Horne [...] signed by Jamel Packer DO> 06/20/24 1446 [facility] Work Phone: 1([phone]) 684-917910-31-2024 Progress note Author Abi Biswas [facility] June 20, 2024 2:38pm Note Date/Time June 20, 2024 2 :34pm [facility] [address] [place] [address] Pulmonology Progress Note Signed Patient: Taurus Garcia MR#: [id number] : 1945 Acct:[id number] Age/Sex: 78 / M Adm Date: 4 Loc: Room: [address] [place] [address] Type: ADM IN Attending Dr: Mateo Horne [...] signed by Abi Biswas MD> 06/20/24 1438 [facility] Work Phone: 1([phone]) 650-338910-31-2024 Progress note Author Mateo Horne [facility] June 20, 2024 9:47am Note Date/Time June 20, 2024 9 :47am [facility] [address] [place] [address] Hospitalist Progress Note Signed Patient: Taurus Garcia MR#: [id number] : 1945 Acct:[id number] Age/Sex: 78 / M Adm Date: 4 Loc: Room: 2L4138-9 Type: ADM IN Attending Dr: Mateo Horne [...] mg 06/19/24 14:21 Bisacodyl 10 Mg Supp.Rect GA 06/19/25 14:20 DAILY PRN Constipation Bisacodyl 10 [...] 20:59 40 mg BID DORI Administration Phenyleph/Shark Oil/[place] Butter 1 supp 06/19/24 21:00 Phenylephrine/[place] Butter 6.25 Mg/2211 Mg 1 Supp GA 06/19/25 20:59 BID PRN hemorrhoids Polyethylene Glycol [...] 14:19 60 mg DAILY DORI Administration Pyridostigmine Fay 90 mg 06/19/24 18:00 06/20/24 09:21 Pyridostigmine Fay 60 Mg Tablet PO 06/19/25 17:59 90 [...] elevated blood pressure to be problematic and sales promotion representative of 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 Documented By: Mateo Horne DO 0941 Signed By: <Electronically signed by Mateo Horne DO> 06/20/24 4116 [facility] Work Phone: 1(285) 160-582910-30-2024 Consult note Author Abi Biswas [facility] June 19, 2024 6:54pm Note Date/Time June 19, 2024 6 :54pm [facility] [address] [place] [address] Pulmonology Consult Note Signed Patient: Taurus Garcia#: [id number] : 1945 Acct:[id number] Age/Sex: 78 / M Adm Date: 4 Loc: Room: [address] [place] [address] Type: ADM IN Attending Dr: Mateo Horne [...] walks with a walker. He came to [facility] and was admitted to the ICU. [...] of Systems Review of systems: see HPI [facility] Medical History (Updated 06/19/24 @ 18:52 by [...] mg PO DAILY 12/27/17 [History Confirmed 06/19/24] vgrczjap-dke-ekbuf acid 0.4 mg-lycopene 300 mcg-lutein 250 mcg [...] <Electronically signed by Abi Biswas MD> 06/19/241853 [facility] Work Phone: 1(993) 482-692010-30-2024 Consult note Author Jamel Packer [facility] June 19, 2024 3:00pm Note Date/Time June 19, 2024 3 :03pm [facility] [address] [place] [address] Neurology Consult Note Signed Patient: Taurus Garcia MR#: [id number] : 1945 Acct:[id number] Age/Sex: 78 / M Adm Date: 4 Loc: Room: [address] [place] [address] Type: ADM IN Attending Dr: Mateo Horne DO Copies to: DO Komal Bajwa II, MD Kristopher L Lindbloom, DO~ HPI Consult Date: 06/19/24 Correctional Officer Lieutenant: Jamel Packer DO [facility] Medical History (Updated 06/19/24 @ 14:59 by [...] mg PO DAILY 12/27/17 [History Confirmed 06/19/24] kmgskoej-jcp-rlxng acid 0.4 mg-lycopene 300 mcg-lutein 250 mcg [...] Diallo Jr. DRaulORaul06/19/2024 10:01 AM Dictation Location: [place] [address] Therapy Recommendations Therapy Recommendations: ST Recommendations ST [...] signed by Jamel Packer DO> 06/19/24 1500 [facility] Work Phone: 1(808) 786-471810-30-2024 History and physical note Author Mateo Horne [facility] June 19, 2024 2:37pm Note Date/Time June 19, 2024 2 :37pm [facility] [address] [place] [address] Hospitalist H&P Signed Patient: Taurus Garcia MR#: [id number] : 1945 Acct:[id number] Age/Sex: 78 / M Adm Date: 4 Loc: Room: [address] [place] [address] Type: ADM IN Attending Dr: Mateo Horne [...] ago, inSept, he presented to the [facility] emergency room and had to be [...] mentioned elsewhere in the documentation. [facility] Medical History (Updated 06/19/24 @ 14:33 by Mateo Horne DO) Myasthenia gravis Problem List clean-up per request of Phys. EHR Cmte Prostate hypertrophy Bladder cancer Problem List clean-up per request of Phys. EHR Cmte Pulmonary emboli Problem List clean-up [facility] Problem List clean-up per request of Phys. E[facility] Acute exacerbation of myasthenia gravis Problem List clean-up per request of Phys. [facility] Surgical History (Updated 06/19/24 @ 14:33 [...] mg PO DAILY 12/27/17 [History Confirmed 06/19/24] azxueuxm-lld-lgmkr acid 0.4 mg-lycopene 300 mcg-lutein 250 mcg [...] % (Auto) 27.5 % (.) 06/19/24 09:49 [place] % (Auto) 11.3 % (.) 06/19/24 09:49 Eos % (Auto) 1.2 % (.) 06/19/24 09:49 Baso % (Auto) 1.0 % (.) 06/19/24 09:49 Nucleat RBC Rel Count 0.1 /100 WBC (0-0.5) 06/19/24 09:49 Neut # (Auto) 5.1 x10E3/uL (1.8-7.7) 06/19/24 09:49 Lymph # (Auto) 2.4 x10E3/uL (1.00-4.8) 06/19/24 09:49 [place] # (Auto) 1.0 x10E3/uL (0.0-0.8) H 06/19/24 [...] Mateo Horne DO> 06/19/24 1437 [facility] Work Phone: 1(127) 216-215710-30-2024 Evaluation note* Diagnosis Onset Date Resolution Status [...] Generalized weakness deleted Carlos barajas 2023 2:40pm [facility] Work Phone: 1(760) 472-591210-30-2024 Evaluation note* Diagnosis Onset Date Resolution Status [...] pulmonary embolism acute June 22, 2024 2:40pm AJMISON on CPAP acute June 22, 2024 2:40pm Acute exacerbation of myasthenia gravis resolved June 22, 2024 2:40pm Hypertension resolved June 2:40pm Impaired mobility and activities of daily living inactive 2023 2:40pm Generalized weakness deleted Nove mber 2023 2:40pm MATT (acute kidney injury) acute July 09, 2024 5:43pm Change in vision acute July 09, 2024 5:43pm Generalized weakness [facility] 2023 5:43pm [facility] Work Phone: 1(854) 168-878310-30-2024 Evaluation note* Diagnosis Onset Date Resolution Status [...] acute September 11, 2024 10:57am [facility] Work Phone: 1(699) 471-818310-24-2024 History of Present illness Narrative* Real Og, [...] Acute respiratory failure with hypoxia ([facility]) 11/17/2023 Acute respiratory insufficiency 12/15/2018 d/t Pulmonary Emboli Allergic rhinitis due to other allergen Autoimmune disorder (CMS/HCC) Bilateral pulmonary embolism (CMS/HCC) 2019 Acute Hypoxic Resp. 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 Cervical radiculopathy at C8 05/2017 CTS (carpal tunnel syndrome) 05/2017 Bilateral Essential hypertension, benign ([facility]) Facial droop History of echocardiogram 12/15/2018 EF 60-65%, LVH Hypertension ([facility]) Impaired glucose tolerance test Oral Lumbosacral spondylosis without myelopathy LVH (left ventricular hypertrophy) 12/15/2018 ECHO EF 60-65% Macular edema 2008 /pucker Muscle cramp Myasthenia gravis ([facility]) 12/27/2017 / dyspnea Myasthenic crisis ([facility]) 05/10/2023 Obesity Obstructive sleep apnea (adult) (pediatric) Pulmonary emboli ([facility]/HCC) 11/17/2023 Pulmonary embolism ([facility]) 11/2018 Pure hypercholesterolemia ([facility]) Shortness of breath Superficial thrombophlebitis 12/16/2018 Rt [...] FOOD, Disp: 180 tablet, Rfl: 3 HYDROcodone-acetaminophen (Neopit) 5-325 MG tablet, Take 1 tablet by [...] Disp: 100 tablet, Rfl: 3 nystatin (Mycostatin) 976912 UNIT/GM powder, APPLY TO THE AFFECTED AREA(S) [...] min Stress: No Stress Concern Present (03/17/2023) [place] [place] [employer] - Occupational Stress Questionnaire Feeling of Stress : Only a little Social Connections: Moderately Isolated (03/17/2023) Social Connection and Isolation Panel [NHANES] Frequency of Communication with Friends and Family: More than three times a week Frequency of Social Gatherings with Friends and Family: Once a week Attends Restorationist Services: Never Active Member of Clubs or [...] condition. Real Og DPM documented in this encounterSullivan County Memorial [id number] History of Present illness Narrative* Stanley Saunders, [...] HYDROcodone-acetaminophen 5-325 MG tablet; Commonly known as: Neopit lisinopril 20 MG tablet; TAKE 1 TABLET BY MOUTH ONCE DAILY loratadine 10 MG tablet; Commonly known as: Claritin nebivolol 10 MG tablet; Commonly known as: Bystolic; Take 1 tablet (10 mg) by mouth Daily nystatin 203161 UNIT/GM powder; Commonly known as: Mycostatin omega-3 [...] wrist extensors , wrist flexor , and centralized traffic control operator strength 5/5. LUE strength deltoid , biceps , triceps , wrist extensors , wrist flexor , and centralized traffic control operator strength 5/5. RLE strength iliopsoas, quadriceps, tibialis [...] reflex 1+. LLE Knee reflex 1+. Coordination: Apiffl-tp-wqbs testing normal. Rapid alternating movements are normal. Gait: Normal. Review and summary of old records: I reviewed documentation from the patient's emergency department visit at [facility] on 02/[facility]. The patient presented with mild [...] MRI of the brain without contrast at [facility] on 02/20/18: Unremarkable EMG of the bilateral upper extremities on 06/19/17: Bilateral median neuropathy such as in carpal tunnel syndrome which is mild in degree electrically. Also a remote right C8 radiculopathy. Assessment/Plan Diagnoses and all orders for this visit: Myasthenia gravis ([facility]) 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 MRI of the brain in 02/2018 was unremarkable. He denies ptosis, double vision, difficulty speaking, difficulty swallowing, orincreased shortness of breath since the prior neurology appointment. The patient was evaluated at [facility] on 02/12/24 due to increased generalized [...] of45.0 to 49.9 in adult ([facility]) The patient is obese. PLAN: - We [...] new or worsening symptoms. documented in this encounterSullivan County Memorial [id number] History of Present illness Narrative* Komal Schaffer [...] by mouth in the morning. nystatin (Mycostatin) 756673 UNIT/GM powder APPLY TO THE AFFECTED AREA(S) [...] Do you have a medical power of commonwealth attorney?: Yes Who is your medical power of commonwealth attorney?: --gabrielle Objective : BP 134/82 Pulse [...] a living will and durable power of commonwealth attorney for healthcare. We discussed telling garcia people about their advance directives such as close family members, and requested a copy to scan into the patient's EHR. An advance directive packet was offered to the patient. Assessment/Plan Diagnoses and all orders for this visit: Routine general medical examination at [facility] care facility ACP (advance care planning) [...] gravis without (acute) exacerbation (G70.00) Atherosclerosis of [place] artery of both lower extremities with intermittent claudication (CMS/HCC) Morbid (severe) obesity due to excess calories (E66.01) Body mass index [BMI] 45.0-49.9, adult (Z68.42) Follow up in about 4 months (around 02/03/2024) for Routine F/U. No orders of the defined types were placed in this encounter. Electronically signed by Komal Schaffer MD on October 05, 2023 documented in this [facility]02-05-2024 Telephone encounter Note* Telephone Encounter - Komal Schaffer MD - 09/25/2023 10:15 AM EST Lab order. [facility] HospitalRqychikslh89-38-1981 Miscellaneous Notes* Telephone Encounter - Komal Schaffer MD - 09/25/2023 10:15 AM EST Lab order. documented in this [facility]01-31-2024 History of Present illness Narrative* Baltazar Hoover, [...] mouth once daily., Disp: , Rfl: omega 5-ink-zkq-fish oil 360 mg-108 mg- 180 mg-1,200 mg [...] whether acute cor pulmonale present ([facility]/HCC) 3. Myasthenia gravis ([facility]) 4. High risk medication use 5. Essential hypertension 6. Mixed hyperlipidemia 7. Morbid obesity with BMI of 45.0-49.9, adult ([facility]) documented in [facility] encounterWilson [facility] Work Phone: 1(715) 269-850901-31-2024 Instructions* Patient Instructions* Connie Morejon LPN - [...] Off amio,stop amio testing documented in this encounterUnUniversity Hospitals [facility] [facility] Work Phone: 1(238) 350-908810-21-2023 Discharge summary Author Silvestre Grover [facility] June 10, 2023 8:11am Note Date/Time June 10, 2023 8 :11am [facility] [address] [place] [address] Discharge Summary Signed Patient: Taurus Garcia MR#: [id number] : 1945 Acct:[id number] Age/Sex: 77 / M Adm Date: 3 Loc: Room: [address] [place] [address]: Silvestre Grover MD Copies to: [...] to MG crisis. Patient presented to [facility] on 05/11/2023 with complaints of worseninggeneralized weakness over the course of several days. He was found to be mildlyhypoxic. Also complaining of urinary symptoms. Initially admitted to [facility] for observation however developed worsening respiratory status with increased secretions and inability to protect own airway and was subsequently intubated and transferred to [facility] for neurology services. Patient received a 5-day [...] Patient Disposition: [place] Health [facility] Activity: Ambulate as Tolerated Diet: Regular Additional [...] home prior. Your Home Health agency is [facility] ( ). They will contact you [...] call and check back for vaccine availability ([phone]). Prescriptions: New nystatin [Nystop] 100,000 unit/gram Powder [...] Silvestre Grover MD> 06/10/23 0811 [facility] Work Phone: 1(851) 947-671010-19-2023 Progress note Author Jarret Garza [facility] June 08, 2023 7:01am Note Date/Time June 07, 2023 5 :18pm [facility] [address] [place] [address] Hospitalist Progress Note Signed Patient: Taurus Garcia MR#: [id number] : 1945 Acct:[id number] Age/Sex: 77 / M Adm Date: 3 Loc: Room: 6W8498-3 Type: ADM IN Attending Dr: Silvestre Grover [...] mg 05/21/23 14:25 Bisacodyl 10 Mg Supp.Rect GA 05/20/24 14:24 DAILY PRN Constipation Docusate Sodium 100 mg 05/21/23 14:25 Docusate 100 Mg Capsule PO 05/20/24 14:24 BID PRN Constipation Docusate Sodium 283 mg 05/21/23 14:25 Docusate Enema 283 Mg/5 Ml Enema GA 05/20/24 14:24 DAILY PRN Constipation Fish Oil 1,000 mg 05/21/23 21:00 06/07/23 09:38 Berwyn-3/Fish Oil 1,000 Mg Capsule PO 05/20/24 20:59 [...] 05/31/24 08:59 Not Given DAILY DORI Pyridostigmine Fay 60 mg 05/21/23 18:00 06/07/23 17:02 Pyridostigmine Fay 60 Mg Tablet PO 05/20/24 17:59 60 [...] Jarret Garza MD> 06/08/23 0701 [facility] Work Phone: 1([phone] 681-365910-18-2023 Progress note Author Silvestre Reilly [facility] June 07, 2023 3:10pm Note Date/Time June 07, 2023 1 :12pm [facility] [address] [place] [address] Physiatry(Rehab) Progress Note Signed Patient: Taurus Garcia MR#: [id number] : 1945 Acct:[id number] Age/Sex: 77 / M Adm Date: 3 Loc: Room: 6P7220-4 Type: ADM IN Attending Dr: Silvestre Grover [...] to MG crisis. Patient presented to [facility] on 05/11/2023 with complaints of worseninggeneralized weakness over the course of several days. He was found to be mildlyhypoxic. Also complaining of urinary symptoms. Initially admitted to [facility] for observation however developed worsening respiratory status with increased secretions and inability to protect own airway and was subsequently intubated and transferred to [facility] for neurology services. Patient received a 5-day [...] mg 05/21/23 14:25 Bisacodyl 10 Mg Supp.Rect GA 05/20/24 14:24 DAILY PRN Constipation Docusate Sodium 100 mg 05/21/23 14:25 Docusate 100 Mg Capsule PO 05/20/24 14:24 BID PRN Constipation Docusate Sodium 283 mg 05/21/23 14:25 Docusate Enema 283 Mg/5 Ml Enema GA 05/20/24 14:24 DAILY PRN Constipation Fish Oil 1,000 mg 05/21/23 21:00 06/07/23 09:38 Berwyn-3/Fish Oil 1,000 Mg Capsule PO 05/20/24 20:59 [...] Packet PO 05/31/24 08:59 Not Given DAILY [facility] Pyridostigmine Fay 60 mg 05/21/23 18:00 06/07/23 09:39 Pyridostigmine Fay 60 Mg Tablet PO 05/20/24 17:59 60 [...] tab DAILY DORI Administration Assessment/Plan <Antonia Grier BOWLING ALLEY MANAGER - Last Filed: 06/07/23 13:25> Assessment/Plan (1) [...] to myasthenic crisis. Initially admitted to [facility] later transferred to [facility] for neurology services. Had to be [...] equipment to enhance the patient's a functional islam Ensure adequate nutrition and hydration Sleep: No concerns. Pain: Continue current regimen Discharge planning: Hopefully home with his end of week/early next week. I spent greater than 15 minutes for services, including ljok-pi-vdhk encounter with the patient, discussion of the case, plan of care, and exam; and ovqlthg-mk-aayy activities, such as reviewing pertinent disaster recovery consultant documentation, recent therapy notes, laboratory and radiology studies, and discussion of case with care team including physician, nursing, skilled nursing case manager, and therapists. More than 50 [...] Allied health note review, nursing note review, disaster recovery consultant note review, discussion with nursing and case management, and more than 50% of my time was spent on counseling and coordination of care, time spent 25 minutes Patient was personally seen by me, Dr. Grover, on the day of encounter, reviewed the history and the relevant portions of the chart, including current orders, allied health and disaster recovery consultant notes, labs/imaging and performed garcia elements of exam and I formulated the plan of care and facilitated the medical decision making. Documented By: Antonia Grier APRN 06/07/23 1 310 Signed By: <Electronically signed by ZACH Grier> 06/07/23 1325 <Electronically signed by Silvestre Grover MD> 06/07/23 1330 [facility] Work Phone: 1([phone]) 232-103310-17-2023 Progress note Author Silvestre Grover [facility] June 06, 2023 3:59pm Note Date/Time June 06, 2023 3 :59pm [facility] [address] [place] [address] Physiatry(Rehab) Progress Note Signed Patient: Taurus Garcia MR#: [id number] : 1945 Acct:[id number] Age/Sex: 77 / M Adm Date: 3 Loc: Room: [id number] Type: ADM IN Attending Dr: Silvestre Grover MD Copies to: ~ Date of Service: 06/06/2023 Subjective Subjective Narrative: Mr. Garcia is a 77 year old male with past medical history of myasthenia gravis,hypertension, A-fib anticoagulated with Eliquis, PE, CKD, obstructive sleep apnea on BiPAP, who presents to acute inpatient rehab with functional impairments due to MG crisis. Patient presented to [facility] on 05/11/2023 with complaints of worseninggeneralized weakness over the course of several days. He was found to be mildlyhypoxic. Also complaining of urinary symptoms. Initially admitted to [facility] for observation however developed worsening respiratory status with increased secretions and inability to protect own airway and was subsequently intubated and transferred to [facility] for neurology services. Patient received a 5-day [...] mg 05/21/23 14:25 Bisacodyl 10 Mg Supp.Rect GA 05/20/24 14:24 DAILY PRN Constipation Docusate Sodium 100 mg 05/21/23 14:25 Docusate 100 Mg Capsule PO 05/20/24 14:24 BID PRN Constipation Docusate Sodium 283 mg 05/21/23 14:25 Docusate Enema 283 Mg/5 Ml Enema GA 05/20/24 14:24 DAILY PRN Constipation Fish Oil 1,000 mg 05/21/23 21:00 06/06/23 10:08 Berwyn-3/Fish Oil 1,000 Mg Capsule PO 05/20/24 20:59 [...] 05/31/24 08:59 Not Given DAILY DORI Pyridostigmine Fay 60 mg 05/21/23 18:00 06/06/23 14:39 Pyridostigmine Fay 60 Mg Tablet PO 05/20/24 17:59 60 [...] to myasthenic crisis. Initially admitted to [facility] later transferred to [facility] for neurology services. Had to be [...] equipment to enhance the patient's a functional islam Ensure adequate nutrition and hydration Sleep: No concerns. Pain: Continue current regimen Discharge planning: Hopefully home with his end of week/early next week. Plan: I completed a substantive portion of this encounter, the medical decision making portion of this note in its entirety, including Allied health note review, nursing note review, disaster recovery consultant note review, discussion with nursing and case management, and more than 50% of my time was spent on counseling and coordination of care, time spent 25 minutes Patient was personally seen by me, Dr. Grover, on the day of encounter, reviewed the history and the relevant portions of the chart, including current orders, allied health and disaster recovery consultant notes, labs/imaging and performed garcia elements of exam and I formulated the plan of care and facilitated the medical decision making. Documented By: Silvestre Grover MD 06/06/23 155 Signed By: <Electronically signed by Silvestre Grover MD> 06/06/23 7144 [facility] Work Phone: 1(241) 140-447510-17-2023 Hospital Discharge instructionsAmbulatory Orders* Initiate Home Health [...] home prior. Your Home Health agency is [facility] ( ). They will contact you [...] call and check back for vaccine availability ([phone]).[facility] Work Phone: 1(974) 955-579010-17-2023 Progress note Author Silvestre Grover [facility] June 06, 2023 11:30am Note Date/Time June 05, 2023 1 :16pm [facility] [address] [place] [address] Physiatry(Rehab) Progress Note Signed Patient: Taurus Garcia MR#: [id number] : 1945 Acct:[id number] Age/Sex: 77 / M Adm Date: 3 Loc: Room: [address] [place] [address] Type: ADM IN Attending Dr: Silvestre Grover MD Copies to: ~ Date of Service: 06/05/2023 Subjective Subjective Narrative: Mr. Garcia is a 77 year old male with past medical history of myasthenia gravis,hypertension, A-fib anticoagulated with Eliquis, PE, CKD, obstructive sleep apnea on BiPAP, who presents to acute inpatient rehab with functional impairments due to MG crisis. Patient presented to [facility] on 05/11/2023 with complaints of worseninggeneralized weakness over the course of several days. He was found to be mildlyhypoxic. Also complaining of urinary symptoms. Initially admitted to [facility] for observation however developed worsening respiratory status with increased secretions and inability to protect own airway and was subsequently intubated and transferred to [facility] for neurology services. Patient received a 5-day [...] mg 05/21/23 14:25 Bisacodyl 10 Mg Supp.Rect GA 05/20/24 14:24 DAILY PRN Constipation Docusate Sodium 100 mg 05/21/23 14:25 Docusate 100 Mg Capsule PO 05/20/24 14:24 BID PRN Constipation Docusate Sodium 283 mg 05/21/23 14:25 Docusate Enema 283 Mg/5 Ml Enema GA 05/20/24 14:24 DAILY PRN Constipation Fish Oil 1,000 mg 05/21/23 21:00 06/05/23 08:04 Berwyn-3/Fish Oil 1,000 Mg Capsule PO 05/20/24 20:59 [...] 08:59 1 packet DAILY DORI Administration Pyridostigmine Fay 60 mg 05/21/23 18:00 06/05/23 08:03 Pyridostigmine Fay 60 Mg Tablet PO 05/20/24 17:59 60 [...] to myasthenic crisis. Initially admitted to [facility] later transferred to [facility] for neurology services. Had to be [...] equipment to enhance the patient's a functional islam Ensure adequate nutrition and hydration Sleep: No concerns. Pain: Continue current regimen Discharge planning: Hopefully home with his end of week/early next week. Plan: I completed a substantive portion of this encounter, the medical decision making portion of this note in its entirety, including Allied health note review, nursing note review, disaster recovery consultant note review, discussion with nursing and case management, and more than 50% of my time was spent on counseling and coordination of care, time spent 25 minutes Patient was personally seen by me, Dr. Grovre, on the day of encounter, reviewed the history and the relevant portions of the chart, including current orders, allied health and disaster recovery consultant notes, labs/imaging and performed garcia elements of exam and I formulated the plan of care and facilitated the medical decision making. Documented By: Silvestre Grover MD 06/05/23 1316 Signed By: <Electronically signed by Silvestre Grover MD> 06/06/23 1130 [facility] Work Phone: 1(813) 955-523110-16-2023 Progress note Author Silvestre Grover [facility] June 05, 2023 11:41am Note Date/Time June 05, 2023 1 1:41am [facility] [address] [place] [address] Physiatry(Rehab) Progress Note Signed Patient: Taurus Garcia MR#: [id number] : 1945 Acct:[id number] Age/Sex: 77 / M Adm Date: 3 Loc: Room: 9A9947-5 Type: ADM IN Attending Dr: Silvestre Grover MD Copies to: ~ Date of Service: 06/02/2023 Subjective Subjective Narrative: Mr. Garcia is a 77 year old male with past medical history of myasthenia gravis,hypertension, A-fib anticoagulated with Eliquis, PE, CKD, obstructive sleep apnea on BiPAP, who presents to acute inpatient rehab with functional impairments due to MG crisis. Patient presented to [facility] on 05/11/2023 with complaints of worseninggeneralized weakness over the course of several days. He was found to be mildlyhypoxic. Also complaining of urinary symptoms. Initially admitted to [facility] for observation however developed worsening respiratory status with increased secretions and inability to protect own airway and was subsequently intubated and transferred to [facility] for neurology services. Patient received a 5-day [...] mg 05/21/23 14:25 Bisacodyl 10 Mg Supp.Rect GA 05/20/24 14:24 DAILY PRN Constipation Docusate Sodium 100 mg 05/21/23 14:25 Docusate 100 Mg Capsule PO 05/20/24 14:24 BID PRN Constipation Docusate Sodium 283 mg 05/21/23 14:25 Docusate Enema 283 Mg/5 Ml Enema GA 05/20/24 14:24 DAILY PRN Constipation Fish Oil 1,000 mg 05/21/23 21:00 06/05/23 08:04 Berwyn-3/Fish Oil 1,000 Mg Capsule PO 05/20/24 20:59 [...] 08:59 1 packet DAILY DORI Administration Pyridostigmine Fay 60 mg 05/21/23 18:00 06/05/23 08:03 Pyridostigmine Fay 60 Mg Tablet PO 05/20/24 17:59 60 [...] to myasthenic crisis. Initially admitted to [facility] later transferred to [facility] for neurology services. Had to be [...] equipment to enhance the patient's a functional islam Ensure adequate nutrition and hydration Sleep: No concerns. Pain: Continue current regimen Discharge planning: Hopefully home with his end of next week. Plan: I completed a substantive portion of this encounter, the medical decision making portion of this note in its entirety, including Allied health note review, nursing note review, disaster recovery consultant note review, discussion with nursing and case management, and more than 50% of my time was spent on counseling and coordination of care, time spent 25 minutes Patient was personally seen by me, Dr. Grover, on the day of encounter, reviewed the history and the relevant portions of the chart, including current orders, allied health and disaster recovery consultant notes, labs/imaging and performed garcia elements of exam and I formulated the plan of care and facilitated the medical decision making. Documented By: Silvestre Grover MD 06/05/23 1139 Signed By: <Electronically signed by Silvestre Grover MD> 06/05/23 1141 [facility] Work Phone: 1([phone]) 775-153210-14-2023 Progress note Author Fidel Bennett [facility] June 03, 2023 3:02pm Note Date/Time June 03, 2023 3 :02pm [facility] [address] [place] [address] Physiatry(Rehab) Progress Note Signed Patient: Taurus Garcia MR#: [id number] : 1945 Acct:[id number] Age/Sex: 77 / M Adm Date: 3 Loc: 5T Room: 1L0900-7 Type: ADM IN Attending Dr: Silvestre Grover MD Copies to: ~ Date of Service: 06/03/2023 Subjective Subjective Narrative: Mr. Garcia is a 77 year old male with past medical history of myasthenia gravis,hypertension, A-fib anticoagulated with Eliquis, PE, CKD, obstructive sleep apnea on BiPAP, who presents to acute inpatient rehab with functional impairments due to MG crisis. Patient presented to [facility] on 05/11/2023 with complaints of worseninggeneralized weakness over the course of several days. He was found to be mildlyhypoxic. Also complaining of urinary symptoms. Initially admitted to [facility] for observation however developed worsening respiratory status with increased secretions and inability to protect own airway and was subsequently intubated and transferred to [facility] for neurology services. Patient received a 5-day [...] mg 05/21/23 14:25 Bisacodyl 10 Mg Supp.Rect GA 05/20/24 14:24 DAILY PRN Constipation Docusate Sodium 100 mg 05/21/23 14:25 Docusate 100 Mg Capsule PO 05/20/24 14:24 BID PRN Constipation Docusate Sodium 283 mg 05/21/23 14:25 Docusate Enema 283 Mg/5 Ml Enema GA 05/20/24 14:24 DAILY PRN Constipation Fish Oil 1,000 mg 05/21/23 21:00 06/03/23 09:45 Berwyn-3/Fish Oil 1,000 Mg Capsule PO 05/20/24 20:59 [...] 08:59 1 packet DAILY DORI Administration Pyridostigmine Fay 60 mg 05/21/23 18:00 06/03/23 14:48 Pyridostigmine Fay 60 Mg Tablet PO 05/20/24 17:59 60 [...] to myasthenic crisis. Initially admitted to [facility] later transferred to [facility] for neurology services. Had to be [...] equipment to enhance the patient's a functional islam Ensure adequate nutrition and hydration Sleep: No concerns. Pain: Continue current regimen Discharge planning: Hopefully home with his end of next week. Plan: I completed a substantive portion of this encounter, the medical decision making portion of this note in its entirety, including Allied health note review, nursing note review, disaster recovery consultant note review, discussion with nursing and case management, and more than 50% of my time was spent on counseling and coordination of care, time spent 25 minutes Patient was personally seen by me, Dr. Bennett, on the day of encounter, reviewed the history and the relevant portions of the chart, including current orders, allied health and disaster recovery consultant notes, labs/imaging and performed garcia elements of exam and I formulated the plan of care and facilitated the medical decision making. Documented By: Fidel Bennett MD 1501 Signed By: <Electronically signed by Fidel Bennett MD> 06/03/23 1502 [facility] Work Phone: 1([phone]) 961-668610-13-2023 Progress note Author Silvestre Grover [facility] June 02, 2023 10:48am Note Date/Time June 01, 2023 1 :12pm [facility] [address] [place] [address] Physiatry(Rehab) Progress Note Signed Patient: Taurus Garcia MR#: [id number] : 1945 Acct:[id number] Age/Sex: 77 / M Adm Date: 3 Loc: Room: [address] [place] [address] Type: ADM IN Attending Dr: Silvestre Grover [...] to MG crisis. Patient presented to [facility] on 05/11/2023 with complaints of worseninggeneralized weakness over the course of several days. He was found to be mildlyhypoxic. Also complaining of urinary symptoms. Initially admitted to [facility] for observation however developed worsening respiratory status with increased secretions and inability to protect own airway and was subsequently intubated and transferred to [facility] for neurology services. Patient received a 5-day [...] more active in therapy. This morning he [id number]+42+90 feet with a rolling walker with wheelchair [...] affect appropriate. Normal speech. Objective <Antonia Grier, BOWLING ALLEY MANAGER - Last Filed: 06/01/23 13:12> Labs 05/30/23 [...] mg 05/21/23 14:25 Bisacodyl 10 Mg Supp.Rect GA 05/20/24 14:24 DAILY PRN Constipation Docusate Sodium 100 mg 05/21/23 14:25 Docusate 100 Mg Capsule PO 05/20/24 14:24 BID PRN Constipation Docusate Sodium 283 mg 05/21/23 14:25 Docusate Enema 283 Mg/5 Ml Enema GA 05/20/24 14:24 DAILY PRN Constipation Fish Oil 1,000 mg 05/21/23 21:00 06/01/23 10:05 Berwyn-3/Fish Oil 1,000 Mg Capsule PO 05/20/24 20:59 [...] 08:59 1 packet DAILY DORI Administration Pyridostigmine Fay 60 mg 05/21/23 18:00 06/01/23 10:05 Pyridostigmine Fay 60 Mg Tablet PO 05/20/24 17:59 60 [...] to myasthenic crisis. Initially admitted to [facility] later transferred to [facility] for neurology services. Had to be [...] equipment to enhance the patient's a functional islam Ensure adequate nutrition and hydration Sleep: No concerns. Pain: Continue current regimen Discharge planning: Hopefully home with his end of next week. I spent greater than 15 minutes for services, including vbli-rr-yslg encounter with the patient, discussion of the case, plan of care, and exam; and vvofweg-eh-coxc activities, such as reviewing pertinent disaster recovery consultant documentation, recent therapy notes, laboratory and radiology studies, and discussion of case with care team including physician, nursing, skilled nursing case manager, and therapists. More than 50 [...] chart, including current orders, allied health and disaster recovery consultant notes, labs/imaging and plan of care as above. Documented By: Antonia Grier APRN 06/01/23 1 304 Signed By: <Electronically signed by ZACH Grier> 06/01/23 1312 <Electronically signed by Slivestre Grover MD> 06/02/23 8558 [facility] Work Phone: 1(291) 877-288210-13-2023 Progress note Author Meera Javier [facility] June 02, 2023 8:21am Note Date/Time May 31, 2023 2 :26pm [facility] [address] [place] [address] Hospitalist Progress Note Signed Patient: Taurus Garcia MR#: [id number] : 1945 Acct:[id number] Age/Sex: 77 / M Adm Date: 3 Loc: Room: [address] [place] [address] Type: ADM IN Attending Dr: Silvestre Grover [...] mg 05/21/23 14:25 Bisacodyl 10 Mg Supp.Rect GA 05/20/24 14:24 DAILY PRN Constipation Docusate Sodium 100 mg 05/21/23 14:25 Docusate 100 Mg Capsule PO 05/20/24 14:24 BID PRN Constipation Docusate Sodium 283 mg 05/21/23 14:25 Docusate Enema 283 Mg/5 Ml Enema GA 05/20/24 14:24 DAILY PRN Constipation Fish Oil 1,000 mg 05/21/23 21:00 05/31/23 07:49 Berwyn-3/Fish Oil 1,000 Mg Capsule PO 05/20/24 20:59 [...] Packet PO 05/31/24 08:59 DAILY DORI Pyridostigmine Fay 60 mg 05/21/23 18:00 05/31/23 14:13 Pyridostigmine Fay 60 Mg Tablet PO 05/20/24 17:59 60 [...] signed by ANP-BC Meera Javier> 06/02/23 0821 [facility] Work Phone: 1([phone]) 569-607210-11-2023 Progress note Author Silvestre Grover [facility] May 31, 2023 10:21am Note Date/Time May 31, 2023 1 0:17am [facility] [address] [place] [address] Physiatry(Rehab) Progress Note Signed Patient: Taurus Garcia MR#: [id number] : 1945 Acct:[id number] Age/Sex: 77 / M Adm Date: 3 Loc: Room: 5U2109-2 Type: ADM IN Attending Dr: Silvestre Grover MD Copies to: ~ Date of Service: 05/31/2023 Subjective Subjective Narrative: Mr. Garcia is a 77 year old male with past medical history of myasthenia gravis,hypertension, A-fib anticoagulated with Eliquis, PE, CKD, obstructive sleep apnea on BiPAP, who presents to acute inpatient rehab with functional impairments due to MG crisis. Patient presented to [facility] on 05/11/2023 with complaints of worseninggeneralized weakness over the course of several days. He was found to be mildlyhypoxic. Also complaining of urinary symptoms. Initially admitted to [facility] for observation however developed worsening respiratory status with increased secretions and inability to protect own airway and was subsequently intubated and transferred to [facility] for neurology services. Patient received a 5-day [...] mg 05/21/23 14:25 Bisacodyl 10 Mg Supp.Rect GA 05/20/24 14:24 DAILY PRN Constipation Docusate Sodium 100 mg 05/21/23 14:25 Docusate 100 Mg Capsule PO 05/20/24 14:24 BID PRN Constipation Docusate Sodium 283 mg 05/21/23 14:25 Docusate Enema 283 Mg/5 Ml Enema GA 05/20/24 14:24 DAILY PRN Constipation Fish Oil 1,000 mg 05/21/23 21:00 05/31/23 07:49 [place]-3/Fish Oil 1,000 Mg Capsule PO 05/20/24 20:59 [...] 08:59 10 mg DAILY DORI Administration Pyridostigmine Fay 60 mg 05/21/23 18:00 05/31/23 07:50 Pyridostigmine Fay 60 Mg Tablet PO 05/20/24 17:59 60 [...] to myasthenic crisis. Initially admitted to [facility] later transferred to [facility] for neurology services. Had to be [...] equipment to enhance the patient's a functional islam Ensure adequate nutrition and hydration Sleep: No concerns. Pain: Continue current regimen Discharge planning: Hopefully home with his end of next week. Plan: I completed a substantive portion of this encounter, the medical decision making portion of this note in its entirety, including Allied health note review, nursing note review, disaster recovery consultant note review, discussion with nursing and case management, and more than 50% of my time was spent on counseling and coordination of care, time spent 25 minutes Patient was personally seen by me, Dr. Grover, on the day of encounter, reviewed the history and the relevant portions of the chart, including current orders, allied health and disaster recovery consultant notes, labs/imaging and performed garcia elements of exam and I formulated the plan of care and facilitated the medical decision making. Documented By: Silvestre Grover MD 05/31/23 1017 Signed By: <Electronically signed by Silvestre Grover MD> 05/31/23 1021 [facility] Work Phone: 1(136) 709-593210-10-2023 Progress note Author Silvestre Grover [facility] May 30, 2023 12:01pm Note Date/Time May 30, 2023 1 2:01pm [facility] [address] [place] [address] Physiatry(Rehab) Progress Note Signed Patient: Taurus Garcia MR#: [id number] : 1945 Acct:[id number] Age/Sex: 77 / M Adm Date: 3 Loc: Room: 9F2614-0 Type: ADM IN Attending Dr: Silvestre Grover MD Copies to: ~ Date of Service: 05/30/2023 Subjective Subjective Narrative: Mr. Garcia is a 77 year old male with past medical history of myasthenia gravis,hypertension, A-fib anticoagulated with Eliquis, PE, CKD, obstructive sleep apnea on BiPAP, who presents to acute inpatient rehab with functional impairments due to MG crisis. Patient presented to [facility] on 05/11/2023 with complaints of worseninggeneralized weakness over the course of several days. He was found to be mildlyhypoxic. Also complaining of urinary symptoms. Initially admitted to [facility] for observation however developed worsening respiratory status with increased secretions and inability to protect own airway and was subsequently intubated and transferred to [facility] for neurology services. Patient received a 5-day [...] % (Auto) 51.5 Lymph % (Auto) 29.7 [place] % (Auto) 14.8 Eos % (Auto) 3.8 Baso % (Auto) 0.2 Nucleat RBC Rel Count 0.2 Neut # (Auto) 2.9 Lymph # (Auto) 1.7 [place] # (Auto) 0.8 Eos # (Auto) 0.2 [...] mg 05/21/23 14:25 Bisacodyl 10 Mg Supp.Rect GA 05/20/24 14:24 DAILY PRN Constipation Docusate Sodium 100 mg 05/21/23 14:25 Docusate 100 Mg Capsule PO 05/20/24 14:24 BID PRN Constipation Docusate Sodium 283 mg 05/21/23 14:25 Docusate Enema 283 Mg/5 Ml Enema GA 05/20/24 14:24 DAILY PRN Constipation Fish Oil 1,000 mg 05/21/23 21:00 05/30/23 08:30 [place]-3/Fish Oil 1,000 Mg Capsule PO 05/20/24 20:59 [...] 08:59 10 mg DAILY DORI Administration Pyridostigmine Fay 60 mg 05/21/23 18:00 05/30/23 08:30 Pyridostigmine Fay 60 Mg Tablet PO 05/20/24 17:59 60 [...] to myasthenic crisis. Initially admitted to [facility] later transferred to [facility] for neurology services. Had to be [...] equipment to enhance the patient's a functional islam Ensure adequate nutrition and hydration Sleep: No concerns. Pain: Continue current regimen Discharge planning: Hopefully home with his end of next week. Plan: I completed a substantive portion of this encounter, the medical decision making portion of this note in its entirety, including Allied health note review, nursing note review, disaster recovery consultant note review, discussion with nursing and case management, and more than 50% of my time was spent on counseling and coordination of care, time spent 25 minutes Patient was personally seen by me, Dr. Grover, on the day of encounter, reviewed the history and the relevant portions of the chart, including current orders, allied health and disaster recovery consultant notes, labs/imaging and performed garcia elements of exam and I formulated the plan of care and facilitated the medical decision making. Documented By: Silvestre Grover MD 05/30/23 1159 Signed By: <Electronically signed by Silvestre Grover MD> 05/30/23 1201 [facility] Work Phone: 1(362) 435-548310-09-2023 Progress note Author Silvestre Grover [facility] May 29, 2023 1:20pm Note Date/Time May 29, 2023 11 :42am [facility] [address] [place] [address] Physiatry(Rehab) Progress Note Signed Patient: Taurus Garcia MR#: [id number] : 1945 Acct:[id number] Age/Sex: 77 / M Adm Date: 3 Loc: Room: [address] [place] [address] Type: ADM IN Attending Dr: Silvestre Grover [...] to MG crisis. Patient presented to [facility] on 05/11/2023 with complaints of worseninggeneralized weakness over the course of several days. He was found to be mildlyhypoxic. Also complaining of urinary symptoms. Initially admitted to [facility] for observation however developed worsening respiratory status with increased secretions and inability to protect own airway and was subsequently intubated and transferred to [facility] for neurology services. Patient received a 5-day [...] mg 05/21/23 14:25 Bisacodyl 10 Mg Supp.Rect GA 05/20/24 14:24 DAILY PRN Constipation Docusate Sodium 100 mg 05/21/23 14:25 Docusate 100 Mg Capsule PO 05/20/24 14:24 BID PRN Constipation Docusate Sodium 283 mg 05/21/23 14:25 Docusate Enema 283 Mg/5 Ml Enema GA 05/20/24 14:24 DAILY PRN Constipation Fish Oil 1,000 mg 05/21/23 21:00 05/29/23 08:28 [place]-3/Fish Oil 1,000 Mg Capsule PO 05/20/24 20:59 [...] 08:59 10 mg DAILY DORI Administration Pyridostigmine Fay 60 mg 05/21/23 18:00 05/29/23 08:29 Pyridostigmine Fay 60 Mg Tablet PO 05/20/24 17:59 60 [...] to myasthenic crisis. Initially admitted to [facility] later transferred to [facility] for neurology services. Had to be [...] equipment to enhance the patient's a functional islam Ensure adequate nutrition and hydration Sleep: No concerns. Pain: Continue current regimen Discharge planning: Hopefully home with his in 3 weeks. I spent greater than 15 minutes for services, including yskd-wd-mpri encounter with the patient, discussion of the case, plan of care, and exam; and mswxvwy-et-uisb activities, such as reviewing pertinent disaster recovery consultant documentation, recent therapy notes, laboratory and radiology studies, and discussion of case with care team including physician, nursing, skilled nursing case manager, and therapists. More than 50 [...] Allied health note review, nursing note review, disaster recovery consultant note review, discussion with nursing and case management, and more than 50% of my time was spent on counseling and coordination of care, time spent 25 minutes Patient was personally seen by me, Dr. Grover, on the day of encounter, reviewed the history and the relevant portions of the chart, including current orders, allied health and disaster recovery consultant notes, labs/imaging and performed garcia elements of exam and I formulated the plan of care and facilitated the medical decision making. Discontinue smith as mobility improves. Making good functional progress. Documented By: Antonia Grier APRN 05/29/23 1 133 Signed By: <Electronically signed by ZACH Grier> 05/29/23 1142 <Electronically signed by Silvestre Grover MD> 05/29/23 1320 [facility] Work Phone: 1(511) 955-621910-06-2023 Progress note Author Silvestre Grover [facility] May 26, 2023 3:42pm Note Date/Time May 25, 2023 11 :38am [facility] [address] [place] [address] Physiatry(Rehab) Progress Note Signed Patient: Taurus Garcia MR#: [id number] : 1945 Acct:[id number] Age/Sex: 77 / M Adm Date: 3 Loc: Room: [address] [place] [address] Type: ADM IN Attending Dr: Silvestre Grover [...] to MG crisis. Patient presented to [facility] on 05/11/2023 with complaints of worseninggeneralized weakness over the course of several days. He was found to be mildlyhypoxic. Also complaining of urinary symptoms. Initially admitted to [facility] for observation however developed worsening respiratory status with increased secretions and inability to protect own airway and was subsequently intubated and transferred to [facility] for neurology services. Patient received a 5-day [...] affect appropriate. Normal speech. Objective <Antonia Grier, BOWLING ALLEY MANAGER - Last Filed: 05/25/23 11:50> Labs 05/22/23 [...] mg 05/21/23 14:25 Bisacodyl 10 Mg Supp.Rect GA 05/20/24 14:24 DAILY PRN Constipation Docusate Sodium 100 mg 05/21/23 14:25 Docusate 100 Mg Capsule PO 05/20/24 14:24 BID PRN Constipation Docusate Sodium 283 mg 05/21/23 14:25 Docusate Enema 283 Mg/5 Ml Enema GA 05/20/24 14:24 DAILY PRN Constipation Fish Oil 1,000 mg 05/21/23 21:00 05/25/23 09:34 [place]-3/Fish Oil 1,000 Mg Capsule PO 05/20/24 20:59 [...] 08:59 10 mg DAILY DORI Administration Pyridostigmine Fay 60 mg 05/21/23 18:00 05/25/23 09:27 Pyridostigmine Fay 60 Mg Tablet PO 05/20/24 17:59 60 mg QID DORI Administration Sennosides 2 tab 05/22/23 12:00 Sennosides 8.6 Mg Tablet PO 05/21/24 11:59 DAILY@12 PRN If no BM in 2 days Triamterene/Hydrochlorothiazide 1 tab 05/22/23 09:00 05/25/23 09:27 Triamterene/Hctz 37.5-25mg 1 Tab Tablet PO 05/21/24 08:59 1 tab DAILY DORI Administration Assessment/Plan <Antonia Grier, BOWLING ALLEY MANAGER - Last Filed: 05/25/23 11:50> Assessment/Plan (1) [...] to myasthenic crisis. Initially admitted to [facility] later transferred to [facility] for neurology services. Had to be [...] equipment to enhance the patient's a functional islam Ensure adequate nutrition and hydration Sleep: No concerns. Pain: Continue current regimen Discharge planning: Hopefully home with his in 3 weeks. I spent greater than 15 minutes for services, including dslz-ed-njzh encounter with the patient, discussion of the case, plan of care, and exam; and dszrnky-wq-afaf activities, such as reviewing pertinent disaster recovery consultant documentation, recent therapy notes, laboratory and radiology studies, and discussion of case with care team including physician, nursing, skilled nursing case manager, and therapists. More than 50 [...] Allied health note review, nursing note review, disaster recovery consultant note review, discussion with nursing and case management, and more than 50% of my time was spent on counseling and coordination of care, time spent 25 minutes Patient was personally seen by me, Dr. Grover, on the day of encounter, reviewed the history and the relevant portions of the chart, including current orders, allied health and disaster recovery consultant notes, labs/imaging and performed garcia elements of exam and I formulated the plan of care and facilitated the medical decision making. Documented By: Antonia Grier APRN 05/25/23 1 136 Signed By: <Electronically signed by ZACH Grier> 05/25/23 1150 <Electronically signed by Silvestre Grover MD> 05/26/23 1542 [facility] Work Phone: 1([phone]) 591-397910-05-2023 Progress note Author Silvestre Grover [facility] May 25, 2023 8:34am Note Date/Time May 24, 2023 1: 11pm [facility] [address] [place] [address] Physiatry(Rehab) Progress Note Signed Patient: Taurus Garcia MR#: [id number] : 1945 Acct:[id number] Age/Sex: 77 / M Adm Date: 3 Loc: Room: [address] [place] [address] Type: ADM IN Attending Dr: Silvestre Grover MD Copies to: ~ Date of Service: 05/24/2023 Subjective Subjective Narrative: Mr. Garcia is a 77 year old male with past medical history of myasthenia gravis,hypertension, A-fib anticoagulated with Eliquis, PE, CKD, obstructive sleep apnea on BiPAP, who presents to acute inpatient rehab with functional impairments due to MG crisis. Patient presented to [facility] on 05/11/2023 with complaints of worseninggeneralized weakness over the course of several days. He was found to be mildlyhypoxic. Also complaining of urinary symptoms. Initially admitted to [facility] for observation however developed worsening respiratory status with increased secretions and inability to protect own airway and was subsequently intubated and transferred to [facility] for neurology services. Patient received a 5-day [...] mg 05/21/23 14:25 Bisacodyl 10 Mg Supp.Rect GA 05/20/24 14:24 DAILY PRN Constipation Docusate Sodium 100 mg 05/21/23 14:25 Docusate 100 Mg Capsule PO 05/20/24 14:24 BID PRN Constipation Docusate Sodium 283 mg 05/21/23 14:25 Docusate Enema 283 Mg/5 Ml Enema GA 05/20/24 14:24 DAILY PRN Constipation Fish Oil 1,000 mg 05/21/23 21:00 05/24/23 08:33 [place]-3/Fish Oil 1,000 Mg Capsule PO 05/20/24 20:59 [...] 08:59 10 mg DAILY DORI Administration Pyridostigmine Fay 60 mg 05/21/23 18:00 05/24/23 08:33 Pyridostigmine Fay 60 Mg Tablet PO 05/20/24 17:59 60 [...] to myasthenic crisis. Initially admitted to [facility] later transferred to [facility] for neurology services. Had to be [...] equipment to enhance the patient's a functional islam Ensure adequate nutrition and hydration Sleep: No concerns. Pain: Continue current regimen Discharge planning: Hopefully home with his in 3 weeks. Plan: I completed a substantive portion of this encounter, the medical decision making portion of this note in its entirety, including Allied health note review, nursing note review, disaster recovery consultant note review, discussion with nursing and case management, and more than 50% of my time was spent on counseling and coordination of care, time spent 20 minutes Patient was personally seen by me, Dr. Grover, on the day of encounter, reviewed the history and the relevant portions of the chart, including current orders, allied health and disaster recovery consultant notes, labs/imaging and performed garcia elements of exam and I formulated the plan of care and facilitated the medical decision making. Documented By: Silvestre Grover MD 05/24/23 1310 Signed By: <Electronically signed by Silvestre Grover MD> 05/25/23 8168 [facility] Work Phone: 1(122) 768-683710-03-2023 Consult note Author Jarret Garza [facility] May 23, 2023 2:28pm Note Date/Time May 22, 2023 4: 54pm [facility] [address] [place] [address] Hospitalist Consult Note Signed Patient: Taurus Garcia MR#: [id number] : 1945 Acct:[id number] Age/Sex: 77 / M Adm Date: 3 Loc: Room: 5Q4082-8 Type: ADM IN Attending Dr: Silvestre Grover [...] PE(On Eliquis) who was admitted to [facility] 9/19 for generalized weakness and was also found to be mildly hypoxic. He was intubated there then transferred to [facility] for evaluation and treatment of [...] mg PO DAILY 12/27/17 [History Confirmed 05/21/23] gumnfhuh-zjh-vvjmm acid 0.4 mg-lycopene 300 mcg-lutein 250 mcg [...] mg 05/21/23 14:25 Bisacodyl 10 Mg Supp.Rect GA 05/20/24 14:24 DAILY PRN Constipation Docusate Sodium 100 mg 05/21/23 14:25 Docusate 100 Mg Capsule PO 05/20/24 14:24 BID PRN Constipation Docusate Sodium 283 mg 05/21/23 14:25 Docusate Enema 283 Mg/5 Ml Enema GA 05/20/24 14:24 DAILY PRN Constipation Fish Oil 1,000 mg 05/21/23 21:00 05/22/23 08:58 [place]-3/Fish Oil 1,000 Mg Capsule PO 05/20/24 20:59 [...] 08:59 10 mg DAILY DORI Administration Pyridostigmine Fay 60 mg 05/21/23 18:00 05/22/23 14:40 Pyridostigmine Fay 60 Mg Tablet PO 05/20/24 17:59 60 [...] Creatinine Clear 100.28, Sodium 141, Potassium 3.7, [id number], Carbon Dioxide 30.8, Anion Gap 7.9, BUN [...] % (Auto) 63.1, Lymph % (Auto) 20.4, [place] % (Auto) 10.8, Eos % (Auto) 5.4, Baso % (Auto) 0.3, Nucleat RBC Rel Count 0.1, Neut # (Auto) 4.6, Lymph # (Auto) 1.5, [place] # (Auto) 0.8, Eos # (Auto) 0.4, [...] signed by Jarret Garza MD> 05/23/23 1428 [facility] Work Phone: 1(311) 376-241210-02-2023 History and physical note Author Silvestre Grover [facility] May 22, 2023 3:50pm Note Date/Time May 22, 2023 10 :42am [facility] [address] [place] [address] Physiatry (Rehab) H&P Signed Patient: Taurus Garcia MR#: [id number] : 1945 Acct:[id number] Age/Sex: 77 / M Adm Date: 3 Loc: Room: [address] [place] [address] Type: ADM IN Attending Dr: Silvestre Grover [...] to MG crisis. Patient presented to [facility] on 05/11/2023 with complaints of worseninggeneralized weakness over the course of several days. He was found to be mildlyhypoxic. Also complaining of urinary symptoms. Initially admitted to [facility] for observation however developed worsening respiratory status with increased secretions and inability to protect own airway and was subsequently intubated and transferred to [facility] for neurology services. Patient received a 5-day [...] mg PO DAILY 12/27/17 [History Confirmed 05/21/23] lhbzuhcg-lxq-iuciu acid 0.4 mg-lycopene 300 mcg-lutein 250 mcg [...] 20 Mg Tablet) 20 mg PO HS [facility] Stop: 05/20/24 21:59 Last Admin: 05/21/23 21:57 Dose: 20 mg Bisacodyl (Bisacodyl 10 Mg Supp.Rect) 10 mg GA DAILY PRN PRN Reason: Constipation Stop: 05/20/24 14:24 Docusate Sodium (Docusate 100 Mg Capsule) 100 mg PO BID PRN PRN Reason: Constipation Stop: 05/20/24 14:24 Docusate Sodium (Docusate Enema 283 Mg/5 Ml Enema) 283 mg GA DAILY PRN PRN Reason: Constipation Stop: 05/20/24 14:24 Fish Oil ([place]-3/Fish Oil 1,000 Mg Capsule) 1,000 mg PO [...] Admin: 05/22/23 08:58 Dose: 10 mg Pyridostigmine Fay (Pyridostigmine Fay 60 Mg Tablet) 60 mg PO QID [facility] Stop: 05/20/24 17:59 Last Admin: 05/22/23 08:57 Dose: 60 mg Sennosides (Sennosides 8.6 Mg Tablet) 2 tab PO DAILY@12 PRN PRN Reason: If no BM in 2 days Stop: 05/21/24 11:59 Triamterene/Hydrochlorothiazide (Triamterene/Hctz 37.5-25mg 1 Tab Tablet) 1 tabPO DAILY [facility] Stop: 05/21/24 08:59 Last Admin: 05/22/23 08:57 [...] % (Auto) 63.1 Lymph % (Auto) 20.4 [place] % (Auto) 10.8 Eos % (Auto) 5.4 Baso % (Auto) 0.3 Nucleat RBC Rel Count 0.1 Neut # (Auto) 4.6 Lymph # (Auto) 1.5 [place] # (Auto) 0.8 Eos # (Auto) 0.4 [...] mobility Anticipated interventions: Physician management, PT, OT, QUALITY IMPROVEMENT COORDINATOR (RN), , Dietitian, RehabNursing, Case management 2. Therapy Functional Outcome/Goal: Anticipate standby assist transfers Anticipated interventions: Physician management, PT, OT, QUALITY IMPROVEMENT COORDINATOR (RN), Case management, Dietitian, Rehab Nursing 3. Therapy Functional Outcome/Goal: Anticipate min assist ambulation Anticipated interventions: Physician management, PT, OT, QUALITY IMPROVEMENT COORDINATOR (RN) Case management, Dietitian, Rehab Nursing 4.Therapy Functional Outcome/Goal: Anticipate min assist self-care Anticipated interventions: Physician management, PT, OT, QUALITY IMPROVEMENT COORDINATOR (RN), Case management, Dietitian, Rehab Nursing 5.Therapy Functional Outcome/Goal: Anticipate min assist swallowing. Anticipated interventions: Physician management, PT, OT, QUALITY IMPROVEMENT COORDINATOR (RN), Case management, Dietitian, Rehab Nursing Required Therapy [...] additional therapy on as needed basis. Comments: QUALITY IMPROVEMENT COORDINATOR (RN) to evaluate and treat patient?s cognition, language and communication skills, assess swallow function. Other: Dietitian, Rehab nursing, Wound, P&O, Neuropsychology as needed RATIONALE FOR IRF ADMISSION: Patient has both medical and functional complexities that require 24 hour daily monitoring and intervention from Planting Supervisor as well as other consulting physicians including internal medicine as well as 24 hour daily hot air furnace installer and repairer nursing - for medical safe / optimal management. Patient requires interdisciplinary therapy team rehabilitation care including OT, PT, QUALITY IMPROVEMENT COORDINATOR (RN), SW, Psychology, Rehab Nursing, requires and can [...] secondaryto myasthenic crisis. Initially admitted to [facility] later [facility] for neurology services. Had to be [...] equipment to enhance the patient's a functional islam Ensure adequate nutrition and hydration Sleep: No concerns. Pain: Continue current regimen Discharge planning: Hopefully home with his in 10 to 14 days. I spent greater than 45 minutes for services, including byna-tv-vktv encounter with the patient, discussion of the case, plan of care, and exam; and uhuuzkj-zn-pzeu activities, such as reviewing pertinent disaster recovery consultant documentation, recent therapy notes, laboratory and radiology studies, and discussion of case with care team including physician, nursing, skilled nursing case manager, and therapists. More than 50 [...] Allied health note review, nursing note review, disaster recovery consultant note review, discussion with nursing and case management, and more than 50% of my time was spent on counseling and coordination of care, time spent 70 minutes Patient was personally seen by me, Dr. Grover, on the day of encounter, reviewed the history and the relevant portions of the chart, including current orders, allied health and disaster recovery consultant notes, labs/imaging and performed garcia elements of exam and I formulated the plan of care and facilitated the medical decision making. Documented By: Antonia Grier APRN 05/22/23 1 040 Signed By: <Electronically signed by ZACH Grier> 05/22/23 1148 <Electronically signed by Silvestre Grover MD> 05/22/23 1550 [facility] Work Phone: 1(927) 343-483109-30-2023 Progress note Author Suraj Razo [facility] May 20, 2023 8:14am Note Date/Time May 20, 2023 8:10am [facility] [address] [place] [address] Hospitalist Progress Note Signed Patient: Taurus Garcia MR#: [id number] : 1945 Acct:[id number] Age/Sex: 77 / M Adm Date: 3 Loc: 4P Room: [address] [place] [address] Type: ADM IN Attending Dr: Suraj Razo MD Copies to: ~ Date of Service: 05/20/2023 Subjective Subjective Narrative: Assessment And Plan 77M with PMH of HTN, HLD, Myasthenia Gravis (Dx 2017), CKD, PE(On Eliquis) who was admitted to [facility] 05/09 for generalized weakness. He was [...] 08:59 10 mg DAILY DORI Administration Pyridostigmine Fay 60 mg 05/18/23 14:00 05/19/23 21:30 Pyridostigmine Fay 60 Mg Tablet PO 05/17/24 13:59 60 mg QID DORI Administration A&P - Hospitalist Assessment/Plan (1) Acute exacerbation of myasthenia gravis: (2) Acute respiratory failure with hypoxia: (3) CKD (chronic kidney disease) stage 3, GFR 30-59 ml/min: Plan . Documented By: Suraj Razo MD 05/20/23808 Signed By: <Electronically signed by Suraj Razo MD> 05/20/2314 [facility] Work Phone: 1(833) 871-488109-29-2023 Progress note Author Suraj Razo [facility] May 19, 2023 1:42pm Note Date/Time May 19, 2023 1:42pm [facility] [address] [place] [address] Hospitalist Progress Note Signed Patient: Taurus Garcia MR#: [id number] : 1945 Acct:[id number] Age/Sex: 77 / M Adm Date: 3 Loc: Room: [address] [place] [address] Type: ADM IN Attending Dr: Suraj Razo MD Copies to: ~ Date of Service: 05/19/2023 Subjective Subjective Narrative: Assessment And Plan 77M with PMH of HTN, HLD, Myasthenia Gravis (Dx 2017), CKD, PE(On Eliquis) who was admitted to [facility] 05/09 for generalized weakness. He was [...] 08:59 10 mg DAILY DORI Administration Pyridostigmine Fay 60 mg 05/18/23 14:00 05/19/23 08:28 Pyridostigmine Fay 60 Mg Tablet PO 05/17/24 13:59 60 mg QID DORI Administration A&P - Hospitalist Assessment/Plan (1) Acute exacerbation of myasthenia gravis: (2) Acute respiratory failure with hypoxia: (3) CKD (chronic kidney disease) stage 3, GFR 30-59 ml/min: Plan . Documented By: Suraj Razo MD 05/19/231339 Signed By: <Electronically signed by Suraj Razo MD> 05/19/23 1342 [facility] Work Phone: 1(400) 582-249109-29-2023 Progress note Author Stanley Burt [facility] May 19, 2023 11:15am Note Date/Time May 19, 2023 8:43am [facility] [address] [place] [address] Pulmonology Progress Note Signed Patient: Taurus Garcia MR#: [id number] : 1945 Acct:[id number] Age/Sex: 77 / M Adm Date: 3 Loc: Room: [address] [place] [address] Type: ADM IN Attending Dr: Suraj Razo [...] require short-term amiodarone. After communicating with Dr. Hooevr, we will discontinue amiodarone drip and start patient on oral amiodarone 200 mg daily. Patient should continue to work with Physical Therapy and Occupational Therapy. Patient is stable for discharge from a pulmonary/critical care medicine perspective and clearly would benefit from rehabilitation. Documented By: Stanley Burt MD 3 0843 Signed By: <Electronically signed by MD Stanley Burt> 05/19/23 1115 [facility] Work Phone: 1([phone]) 387-823309-29-2023 Progress note Author Silvestre Grover [facility] May 19, 2023 10:51am Note Date/Time May 19, 2023 10:03am [facility] [address] [place] [address] Physiatry(Rehab) Progress Note Signed Patient: Taurus Garcia MR#: [id number] : 1945 Acct:[id number] Age/Sex: 77 / M Adm Date: 3 Loc: Room: [address] [place] [address] Type: ADM IN Attending Dr: Suraj aRzo MD Copies to: ~ Date of Service: [...] feel generally weak, he presented to [facility] and was subsequently intubated and transferred [...] % (Auto) 53.7 Lymph % (Auto) 22.1 [place] % (Auto) 10.0 Eos % (Auto) 13.8 Baso % (Auto) 0.4 Nucleat RBC Rel Count 0.2 Neut # (Auto) 2.7 Lymph # (Auto) 1.1 [place] # (Auto) 0.5 Eos # (Auto) 0.7 [...] 08:59 10 mg DAILY DORI Administration Pyridostigmine Fay 60 mg 05/18/23 14:00 05/19/23 08:28 Pyridostigmine Fay 60 Mg Tablet PO 05/17/24 13:59 60 [...] for myasthenic crisis, intubated on admission to [facility], just extubated 05/15, being evaluated for possible [...] Allied health note review, nursing note review, disaster recovery consultant note review, discussion with nursing and case management, and more than 50% of my time was spent on counseling and coordination of care, time spent 30 minutes Patient was personally seen by me, Dr. Grover, on the day of encounter, reviewed the history and the relevant portions of the chart, including current orders, allied health and disaster recovery consultant notes, labs/imaging and performed garcia elements of exam and I formulated the plan of care and facilitated the medical decision making. Documented By: Silvestre Grover MD 05/19/23 1003 Signed By: <Electronically signed by Silvestre Grover MD> 05/19/23 1051 [facility] Work Phone: 1([phone]) 485-537609-28-2023 Consult note Author Pat Hoover [facility] May 18, 2023 6:00pm Note Date/Time May 18, 2023 6:00pm [facility] [address] [place] [address] Cardiology Consult Note Signed Patient: Taurus Garcia MR#: [id number] : 1945 Acct:[id number] Age/Sex: 77 / M Adm Date: 3 Loc: Room: [address] [place] [address] Type: ADM IN Attending Dr: Suraj Razo MD Copies to: MD Komal Cordoba II, MD W Scott Sheldon, DO~ Cardiology HPI History of Present Illness Consult Date: 05/18/23 Reason for Consult: Atrial fibrillation HPI: Mr. Garcai is a 77 year old male seen [...] Respiratory: Reports as per HPI [facility] Medical History Acute exacerbation of myasthenia gravis [...] mg PO DAILY 12/27/17 [History Confirmed 05/10/23] gcqvhmwq-ytn-vhols acid 0.4 mg-lycopene 300 mcg-lutein 250 mcg [...] x10E3/uL Lymph # (Auto) 1.0 (1.00-4.8) x10E3/uL [place] # (Auto) 0.4 (0.0-0.8) x10E3/uL Eos # (Auto) 0.8 H (0.0-0.45) x10E3/uL Baso # (Auto) 0.0 (0.0-0.2) x10E3/uL Intake and Output 05/18/23 05/18/23 05/18/23 07:59 15:59 23:59 Intake Total 60 / 710 650 / 710 Output Total 2074 Balance -415 / -1365 -950 / -1365 Intake: IV 250 / 250 Amiodarone 450 mg In Dextrose 5 250 / 250 % in Water [place] 241 ml @ 0.5 MG/MIN 16.667 mls/hr IV .Q15H DORI Rx#:[id number] Oral 60 / 460 400 / 460 [...] Pat Hoover DO> 05/18/23 1800 [facility] Work Phone: 1([phone]) 181-117309-28-2023 Progress note Author Stanley Burt [facility] May 18, 2023 4:48pm Note Date/Time May 18, 2023 8:38am [facility] [address] [place] [address] Pulmonology Progress Note Signed Patient: Taurus Garcia MR#: [id number] : 1945 Acct:[id number] Age/Sex: 77 / M Adm Date: 3 Loc: Room: [address] [place] [address] Type: ADM IN Attending Dr: Suraj Razo [...] signed by MD Stanley Burt> 05/18/23 1648 [facility] Work Phone: 1([phone]) [phone] Progress note Author Suraj Razo [facility] May 18, 2023 12:58pm Note Date/Time May 18, 2023 12:55pm [facility] [address] [place] [address] Hospitalist Progress Note Signed Patient: Taurus Garcia MR#: [id number] : 1945 Acct:[id number] Age/Sex: 77 / M Adm Date: 3 Loc: Room: 0D5789-1 Type: ADM IN Attending Dr: Suraj Razo MD Copies to: ~ Date of Service: 05/18/2023 Subjective Subjective Narrative: Assessment And Plan 77M with PMH of HTN, HLD, Myasthenia Gravis (Dx 2016), CKD, PE(On Eliquis) who was admitted to [facility] 05/09 for generalized weakness. He was [...] 08:59 10 mg DAILY DORI Administration Pyridostigmine Fay 60 mg 05/18/23 14:00 Pyridostigmine Fay 60 Mg Tablet PO 05/17/24 13:59 QID DORI A&P - Hospitalist Assessment/Plan (1) Acute exacerbation of myasthenia gravis: (2) Acute respiratory failure with hypoxia: (3) CKD (chronic kidney disease) stage 3, GFR 30-59 ml/min: Plan . Documented By: Suraj Razo MD 05/18/231252 Signed By: <Electronically signed by Suraj Razo MD> 05/18/23 1253 [facility] Work Phone: 1([phone]) 354-819109-27-2023 Progress note Author Jamel Packer [facility] May 17, 2023 2:05pm Note Date/Time May 17, 2023 2:05pm [facility] [address] [place] [address] Neurology Progress Note Signed Patient: Taurus Garcia MR#: [id number] : 1945 Acct:[id number] Age/Sex: 77 / M Adm Date: 3 Loc: Room: [address] [place] [address] Type: ADM IN Attending Dr: Suraj Razo [...] Therapy Recommendations: OT Recommendations [facility] OT Recommended Services at Physical Therapy,Occupational Therapy,Speech Discharge Therapy,13/03 Supervision PT Recommendations PT Recommended Discharge Alf Facility,[facility] Location PT Recommended Services at Physical Therapy,Occupational Therapy Discharge ST Recommendations Level of Supervision 1:1 Feeding Supervision Liquid Consistency [place]-Thick Liquids Recommendation Solid Consistency Pureed Solids Recommendations [...] By: <Electronically signed by Jamel Packer DO> 05/17/230 [facility] Work Phone: 1([phone]) 661-788409-27-2023 Progress note Author Stanley Burt [facility] May 17, 2023 12:50pm Note Date/Time May 17, 2023 12:50pm [facility] [address] [place] [address] Pulmonology Progress Note Signed Patient: Taurus Garcia MR#: [id number] : 1945 Acct:[id number] Age/Sex: 77 / M Adm Date: 3 Loc: Room: [address] [place] [address] Type: ADM IN Attending Dr: Suraj Razo [...] ICU. Documented By: Stanley Burt MD 3 3345 Signed By: <Electronically signed by MD Stanley Burt> 05/17/23 1871 [facility] Work Phone: 1([phone]) [phone] Progress note Author Suraj Razo [facility] May 17, 2023 11:57am Note Date/Time May 17, 2023 11:48am [facility] [address] [place] [address] Hospitalist Progress Note Signed Patient: Taurus Garcia MR#: [id number] : 1945 Acct:[id number] Age/Sex: 77 / M Adm Date: 3 Loc: Room: [address] [place] [address] Type: ADM IN Attending Dr: Suraj Razo MD Copies to: ~ Date of Service: 05/17/2023 Subjective Subjective Narrative: Assessment And Plan 77M with PMH of HTN, HLD, Myasthenia Gravis (Dx 2016), CKD, PE(On Eliquis) who was admitted to [facility] 05/09 for generalized weakness. He was [...] 08:59 10 mg DAILY DORI Administration Pyridostigmine Fay 60 mg 05/15/23 22:00 05/17/23 08:52 Pyridostigmine Fay 60 Mg Tablet NG-TUBE 05/14/24 21:59 60 mg TID DORI Administration A&P - Hospitalist Assessment/Plan (1) Acute exacerbation of myasthenia gravis: (2) Acute respiratory failure with hypoxia: (3) CKD (chronic kidney disease) stage 3, GFR 30-59 ml/min: Plan . Documented By: Suraj Razo MD 05/17/23 1146 Signed By: <Electronically signed by Suraj Razo MD> 05/17/23 1154 [facility] Work Phone: [phone]) [phone] Progress note Author Silvestre Grover [facility] May 17, 2023 10:48am Note Date/Time May 17, 2023 10:48am [facility] [address] [place] [address] Physiatry(Rehab) Progress Note Signed Patient: Taurus Garcia MR#: [id number] : 1945 Acct:[id number] Age/Sex: 77 / M Adm Date: 3 Loc: Room: [address] [place] [address] Type: ADM IN Attending Dr: Suraj Razo [...] feel generally weak, he presented to [facility] and was subsequently intubated and transferred [...] MPV Neut % (Auto) Lymph % (Auto) [place] % (Auto) Eos % (Auto) Baso % (Auto) Nucleat RBC Rel Count Neut # (Auto) Lymph # (Auto) [place] # (Auto) Eos # (Auto) Baso # [...] Color Urine Appearance Urine pH Ur Specific [place] Urine Protein Urine Glucose (UA) Urine Ketones Urine Occult Blood Urine Nitrite Urine Bilirubin Urine Urobilinogen Ur Leukocyte Esterase Urine RBC Urine WBC Ur Squamous Epith Cells Calcium Oxalate Crystal Urine Bacteria Hyaline Casts Urine Yeast 05/16/23 05/16/23 05/16/23 10:32 13:20 16:37 Corrected WBC Uncorrected WBC Count RBC Hgb Hct MCV MCH MCHC RDW Plt Count MPV Neut % (Auto) Lymph % (Auto) [place] % (Auto) Eos % (Auto) Baso % (Auto) Nucleat RBC Rel Count Neut # (Auto) Lymph # (Auto) [place] # (Auto) Eos # (Auto) Baso # (Auto) PHA Creatinine Clear Sodium Potassium Chloride Carbon Dioxide Anion Gap BUN Creatinine Est GFR (CKD-EPI) Glucose POC Glucose 165 POC Glucose Comment Glu2: cleaned meter Calcium Magnesium Total Creatine Kinase 175 Troponin I High Sens TSH 3rd Generation Urine Color Yellow Urine Appearance Clear Urine pH 5.5 Ur Specific [place] 1.026 Urine Protein 30 H Urine Glucose [...] % (Auto) 72.4 Lymph % (Auto) 12.6 [place] % (Auto) 7.6 Eos % (Auto) 7.1 Baso % (Auto) 0.3 Nucleat RBC Rel Count 0.5 Neut # (Auto) 3.2 Lymph # (Auto) 0.6 L [place] # (Auto) 0.3 Eos # (Auto) 0.3 Baso # (Auto) 0.0 PHA Creatinine Clear Sodium Potassium Chloride Carbon Dioxide Anion Gap BUN Creatinine Est GFR (CKD-EPI) Glucose POC Glucose 146 107 POC Glucose Comment Glu2: cleaned meter Calcium Magnesium Total Creatine Kinase Troponin I High Sens TSH 3rd Generation Urine Color Urine Appearance Urine pH Ur Specific [place] Urine Protein Urine Glucose (UA) Urine Ketones Urine Occult Blood Urine Nitrite Urine Bilirubin Urine Urobilinogen Ur Leukocyte Esterase Urine RBC Urine WBC Ur Squamous Epith Cells Calcium Oxalate Crystal Urine Bacteria Hyaline Casts Urine Yeast 05/17/23 04:19 Corrected WBC Uncorrected WBC Count RBC Hgb Hct MCV MCH MCHC RDW Plt Count MPV Neut % (Auto) Lymph % (Auto) [place] % (Auto) Eos % (Auto) Baso % (Auto) Nucleat RBC Rel Count Neut # (Auto) Lymph # (Auto) [place] # (Auto) Eos # (Auto) Baso # [...] Color Urine Appearance Urine pH Ur Specific [place] Urine Protein Urine Glucose (UA) Urine Ketones [...] 08:59 10 mg DAILY DORI Administration Pyridostigmine Fay 60 mg 05/15/23 22:00 05/17/23 08:52 Pyridostigmine Fay 60 Mg Tablet NG-TUBE 05/14/24 21:59 60 [...] for myasthenic crisis, intubated on admission to [facility], just extubated 05/15, being evaluated for possible IRF placement. -Discussed with pulmonology COMPUTER CUSTOMER SUPPORT SPECIALIST. -At this time remains not medically ready for transition to IRF and cannot tolerate 3 hours of therapy daily. Dependent for all mobility. Limited tolerance. -Hopefully can progress over next several days and be able to tolerate IRF level therapy when medically stable for discharge, family prefers [facility] as backup plan if [facility]ACH not required. -Reviewed Neurology note, does not appear would require transfer to tertiary center at this time. -Will follow daily for updated progress. Plan: I completed a substantive portion of this encounter, the medical decision making portion of this note in its entirety, including Allied health note review, nursing note review, disaster recovery consultant note review, discussion with nursing and case management, and more than 50% of my time was spent on counseling and coordination of care, time spent 25 minutes Patient was personally seen by me, Dr. Grover, on the day of encounter, reviewed the history and the relevant portions of the chart, including current orders, allied health and disaster recovery consultant notes, labs/imaging and performed garcia elements of exam and I formulated the plan of care and facilitated the medical decision making. Documented By: Silvestre Grover MD 05/17/231043 Signed By: <Electronically signed by Silvestre Grover MD> 05/17/231047 [facility] Work Phone: 1([phone]) 386-192409-26-2023 Consult note Author Silvestre Grover [facility] May 16, 2023 3:19pm Note Date/Time May 16, 2023 2:46pm [facility] [address] [place] [address] Physiatry (Rehab) Consult Note Signed Patient: Taurus Garcia MR#: [id number] : 1945 Acct:[id number] Age/Sex: 77 / M Adm Date: 3 Loc: Room: [address] [place] [address] Type: ADM IN Attending Dr: Suraj Razo [...] feel generally weak, he presented to [facility] and was subsequently intubated and transferred [...] of motion. Eyes closed most of session. QUALITY IMPROVEMENT COORDINATOR (RN) notes reviewed, cleared for modified diet. Review of Systems Review of Systems All other systems reviewed & are negative unless noted below or in HPI [facility] Medical History Acute exacerbation of myasthenia gravis [...] mg PO DAILY 12/27/17 [History Confirmed 05/10/23] mbhmzsev-wwm-pfkqw acid 0.4 mg-lycopene 300 mcg-lutein 250 mcg [...] MPV Neut % (Auto) Lymph % (Auto) [place] % (Auto) Eos % (Auto) Baso % (Auto) Nucleat RBC Rel Count Neut # (Auto) Lymph # (Auto) [place] # (Auto) Eos # (Auto) Baso # (Auto) Potassium 4.0 POC Glucose 152 146 Magnesium 1.9 Urine Color Urine Appearance Urine pH Ur Specific [place] Urine Protein Urine Glucose (UA) Urine Ketones [...] % (Auto) 82.7 Lymph % (Auto) 7.8 [place] % (Auto) 5.0 Eos % (Auto) 4.2 Baso % (Auto) 0.3 Nucleat RBC Rel Count 0.5 Neut # (Auto) 4.4 Lymph # (Auto) 0.4 L [place] # (Auto) 0.3 Eos # (Auto) 0.2 Baso # (Auto) 0.0 Potassium POC Glucose 100 Magnesium Urine Color Yellow Urine Appearance Clear Urine pH 5.5 Ur Specific [place] 1.026 Urine Protein 30 H Urine Glucose [...] for myasthenic crisis, intubated on admission to [facility], just extubated 05/15, being evaluated for possible [...] when medically stable for discharge, family prefers [facility] as backup plan if LTACH not required. -Reviewed Neurology note, does not appear would require transfer to tertiary center at this time. -Will follow daily for updated progress. Plan: I completed a substantive portion of this encounter, the medical decision makingportion of this note in its entirety, including Allied health note review, nursing note review, disaster recovery consultant note review, discussion with nursing and case management, and more than 50% of my time was spent on counseling and coordination of care, time spent 65 minutes Patient was personally seen by me, Dr. Grover, on the day of encounter, reviewed the history and the relevant portions of the chart, including current orders, allied health and disaster recovery consultant notes, labs/imaging and performed garcia elements of exam and I formulated the plan of care and facilitated the medical decision making. Documented By: Silvestre Grover MD 05/16/23 1208 Signed By: <Electronically signed by Silvestre Grover MD> 05/16/23 1519 [facility] Work Phone: 1([phone]) 113-514909-26-2023 Progress note Author Jamel Packer [facility] May 16, 2023 2:29pm Note Date/Time May 16, 2023 2:29pm [facility] [address] [place] [address] Neurology Progress Note Signed Patient: Taurus Garcia MR#: [id number] : 1945 Acct:[id number] Age/Sex: 77 / M Adm Date: 3 Loc: Room: [address] [place] [address] Type: ADM IN Attending Dr: Suraj Razo [...] of Supervision 1:1 Feeding Supervision Liquid Consistency [place]-Thick Liquids Recommendation Solid Consistency Pureed Solids Recommendations [...] <Electronically signed by Jamel Packer DO> 05/16/23 1424 [facility] Work Phone: 1(194) 586-145709-26-2023 Progress note Author Suraj Razo [facility] May 16, 2023 1:53pm Note Date/Time May 16, 2023 1:53pm [facility] [address] [place] [address] Hospitalist Progress Note Signed Patient: Taurus Garcia MR#: [id number] : 1945 Acct:[id number] Age/Sex: 77 / M Adm Date: 3 Loc: Room: [address] [place] [address] Type: ADM IN Attending Dr: Suraj Razo MD Copies to: ~ Date of Service: 05/16/2023 Subjective Subjective Narrative: Assessment And Plan 77M with PMH of HTN, HLD, Myasthenia Gravis (Dx 2017), CKD, PE(On Eliquis) who was admitted to [facility] 05/09 for generalized weakness. He was [...] 08:59 60 mg DAILY DORI Administration Pyridostigmine Fay 60 mg 05/15/23 22:00 05/16/23 09:25 Pyridostigmine Fay 60 Mg Tablet NG-TUBE 05/14/24 21:59 60 [...] . Documented By: Suraj Razo MD 05/16/23 4902 Signed By: <Electronically signed by Suraj Razo MD> 05/16/23 1353 [facility] Work Phone: 1([phone]) 483-635409-26-2023 Progress note Author Stanley Carmel [facility] May 16, 2023 11:27am Note Date/Time May 16, 2023 11:27am [facility] [address] [place] [address] Pulmonology Progress Note Signed Patient: Taurus Garcia MR#: [id number] : 1945 Acct:[id number] Age/Sex: 77 / M Adm Date: 3 Loc: Room: [address] [place] [address] Type: ADM IN Attending Dr: Suraj Razo [...] signed by MD Stanley Burt> 05/16/23 1127 [facility] Work Phone: [phone]) [phone] Progress note Author Jamel Packer [facility] May 15, 2023 1:56pm Note Date/Time May 15, 2023 1:54pm [facility] [address] [place] [address] Neurology Progress Note Signed Patient: Taurus Garcia MR#: [id number] : 1945 Acct:[id number] Age/Sex: 77 / M Adm Date: 3 Loc: Room: [address] [place] [address] Type: ADM IN Attending Dr: Suraj Razo [...] <Electronically signed by Jamel Packer DO> 05/15/23 6264 [facility] Work Phone: [phone]) 595-270409-25-2023 Progress note Author Suraj Razo [facility] May 15, 2023 12:28pm Note Date/Time May 15, 2023 12:25pm [facility] [address] [place] [address] Hospitalist Progress Note Signed Patient: Taurus Garcia MR#: [id number] : 1945 Acct:[id number] Age/Sex: 77 / M Adm Date: 3 Loc: Room: [address] [place] [address] Type: ADM IN Attending Dr: Suraj Razo MD Copies to: ~ Date of Service: 05/15/2023 Subjective Subjective Narrative: Assessment And Plan 77M with [facility] of HTN, HLD, Myasthenia Gravis (Dx 2016), CKD, PE(On Eliquis) who was admitted to [facility] 05/09 for generalized weakness. He was [...] 05/10/24 00:22 PROTOCOL PRN Bolus Documentation Pyridostigmine Fay 30 mg 05/14/23 14:00 05/15/23 08:57 Pyridostigmine Fay 60 Mg Tablet NG-TUBE 05/13/24 13:59 30 [...] Suraj Razo MD> 05/15/23 1228 [facility] Work Phone: 1([phone]) 241-949809-25-2023 Progress note Author Satnley Burt [facility] May 15, 2023 11:32am Note Date/Time May 15, 2023 11:25am [facility] [address] [place] [address] Pulmonology Progress Note Signed Patient: Taurus Garcia MR#: [id number] : 1945 Acct:[id number] Age/Sex: 77 / M Adm Date: 3 Loc: Room: [address] [place] [address] Type: ADM IN Attending Dr: Suraj Razo [...] previous pulmonary embolism who was transferred from [facility] with progressive decompensation likely related to myasthenia [...] signed by MD Stanley Burt> 05/15/23 1132 [facility] Work Phone: 1([phone]) 427-116809-24-2023 Progress note Author Eliezer Newell [facility] May 14, 2023 6:05pm Note Date/Time May 14, 2023 5:59pm [facility] [address] [place] [address] Hospitalist Progress Note Signed Patient: Taurus Garcia MR#: [id number] : 1945 Acct:[id number] Age/Sex: 77 / M Adm Date: 3 Loc: Room: [address] [place] [address] Type: ADM IN Attending Dr: Eliezer Newell MD Copies to: ~ Date of Service: 05/14/2023 Subjective Subjective Narrative: Assessment And Plan 77M with PMH of HTN, HLD, Myasthenia Gravis (Dx 2016), CKD, PE(On Eliquis) who was admitted to [facility] 05/09 for generalized weakness. He was intubated there then transferred for the evaluation and treatment of suspected acute myasthenia gravis exacerbation. Acute Respiratory Failure due to Myasthenia gravis exacerbation remain on MV with low O2 demand The patient required intubation at [facility] CXR 05/11 shows Continued cardiomegaly and [...] Lactated Ringers IV 05/10/24 01:59 Not Given .[id number] DORI Immune Globulin 30 gm in 300 [...] 05/10/24 00:22 PROTOCOL PRN Bolus Documentation Pyridostigmine Fay 30 mg 05/14/23 14:00 05/14/23 13:41 Pyridostigmine Fay 60 Mg Tablet NG-TUBE 05/13/24 13:59 30 [...] . Documented By: Eliezer Newell MD 05/14/23 6804 Signed By: <Electronically signed by Eliezer Newell MD> 05/14/23 4345 [facility] Work Phone: 1(115) 786-164609-24-2023 Progress note Author Jamel Packer [facility] May 14, 2023 12:14pm Note Date/Time May 14, 2023 11:10am [facility] [address] [place] [address] Neurology Progress Note Signed Patient: Taurus Garcia MR#: [id number] : 1945 Acct:[id number] Age/Sex: 77 / M Adm Date: 3 Loc: Room: [address] [place] [address] Type: ADM IN Attending Dr: Eliezer Newell [...] with (acute) exacerbation Status: Acute Documented By: aJmel Packer DO 05/14/23 1107 Signed By: <Electronically signed by Jamel Packer DO> 05/14/23 1214 [facility] Work Phone: 1([phone]) [phone] Progress note Author Stanley Burt [facility] May 14, 2023 12:02pm Note Date/Time May 14, 2023 9:12am [facility] [address] [place] [address] Pulmonology Progress Note Signed Patient: Taurus Garcia MR#: [id number] : 1945 Acct:[id number] Age/Sex: 77 / M Adm Date: 3 Loc: Room: [address] [place] [address] Type: ADM IN Attending Dr: Eliezer Newell [...] embolism who was transferred from outside hospital ([facility]) with progressive decompensation likely related to myasthenia gravis exacerbation. Patient's potassium is stable with patient getting day #4 of intravenous immunoglobulin today. Continue supportive care with patient alreadyon apixaban with nutritional support and stress ulcer prophylaxis. Note that cultures remain negative. Documented By: Stanley Burt MD 3 0910 Signed By: <Electronically signed by MD Stanley Burt> 05/14/23 1202 [facility] Work Phone: 1(460) 761-506409-23-2023 Progress note Author Eliezer Newell [facility] May 13, 2023 6:40pm Note Date/Time May 13, 2023 5:41pm [facility] [address] [place] [address] Hospitalist Progress Note Signed Patient: Taurus Garcia MR#: [id number] : 1945 Acct:[id number] Age/Sex: 77 / M Adm Date: 3 Loc: Room: [address] [place] [address] Type: ADM IN Attending Dr: Eliezer Newell MD Copies to: ~ Date of Service: 05/13/2023 Subjective Subjective Narrative: Assessment And Plan 77M with PMH of HTN, HLD, Myasthenia Gravis (Dx 2017), CKD, PE(On Eliquis) who was admitted to [facility] 05/09 for generalized weakness. He was intubated there then transferred for the evaluation and treatment of suspected acute myasthenia gravis exacerbation. Acute Respiratory Failure due to Myasthenia gravis exacerbation remain on MV with low O2 demand The patient required intubation at [facility] CXR 05/11 shows Continued cardiomegaly and [...] Lactated Ringers IV 05/10/24 01:59 75 mls/hr .[id number] DORI Administration Immune Globulin 30 gm in [...] signed by Eliezer Newell MD> 05/13/23 1840 [facility] Work Phone: 1(582) 993-857109-23-2023 Progress note Author Stanlye Burt [facility] May 13, 2023 1:31pm Note Date/Time May 13, 2023 10:36am [facility] [address] [place] [address] Pulmonology Progress Note Signed Patient: Taurus Garcia MR#: [id number] : 1945 Acct:[id number] Age/Sex: 77 / M Adm Date: 3 Loc: Room: [address] [place] [address] Type: ADM IN Attending Dr: Eliezer Newell [...] embolism who was transferred from outside hospital ([facility]) with progressive decompensation likely related to myasthenia [...] signed by MD Stanley Burt> 05/13/23 1331 [facility] Work Phone: 1(574) 968-868509-23-2023 Progress note Author Jamel Packer [facility] May 13, 2023 1:04pm Note Date/Time May 13, 2023 1:04pm [facility] [address] [place] [address] Neurology Progress Note Signed Patient: Taurus Garcia MR#: [id number] : 1945 Acct:[id number] Age/Sex: 77 / M Adm Date: 3 Loc: Room: [address] [place] [address] Type: ADM IN Attending Dr: Eliezer Newell [...] [facility] completing his IVIG course. Code(s): G70.01 - Myasthenia gravis with (acute) exacerbation Status: Acute Documented By: Jamel Packer DO 05/13/23 1301 Signed By: <Electronically signed by Jamel Packer DO> 05/13/23 1304 [facility] Work Phone: 1(352) 159-510909-22-2023 Progress note Author Eliezer Newell [facility] May 12, 2023 6:48pm Note Date/Time May 12, 2023 3:45pm [facility] [address] [place] [address] Hospitalist Progress Note Signed Patient: Taurus Garcia MR#: [id number] : 1945 Acct:[id number] Age/Sex: 77 / M Adm Date: 3 Loc: Room: [address] [place] [address] Type: ADM IN Attending Dr: Eliezer Newell MD Copies to: ~ Date of Service: 05/12/2023 Subjective Subjective Narrative: Assessment And Plan 77M with PMH of HTN, HLD, Myasthenia Gravis (Dx 2016), CKD, PE(On Eliquis) who was admitted to [facility] 05/09 for generalized weakness. He was intubated there then transferred for the evaluation and treatment of suspected acute myasthenia gravis exacerbation. Acute Respiratory Failure remain on MV with low O2 demand The patient required intubation at [facility] CXR 05/11 shows Continued cardiomegaly and [...] Lactated Ringers IV 05/10/24 01:59 75 mls/hr .[id number] DORI Administration Immune Globulin 30 gm in [...] . Documented By: Eliezer Newell MD 05/12/23 3843 Signed By: <Electronically signed by Eliezer Newell MD> 05/12/23 5439 [facility] Work Phone: 1(524) 607-939209-22-2023 Progress note [facility] May 12, 2023 2:06pm Note Date/Time May 12, 2023 2:06pm [facility] [address] [place] [address] Neurology Progress Note Signed Patient: Taurus Garcia MR#: [id number] : 1945 Acct:[id number] Age/Sex: 77 / M Adm Date: 3 Loc: Room: [address] [place] [address] Type: ADM IN Attending Dr: Eliezer Newell [...] signed by Jamel Packer DO> 05/12/23 1406 [facility] Work Phone: 1(763) 915-591009-22-2023 Progress note Author Stanley Burt [facility] May 12, 2023 11:21am Note Date/Time May 12, 2023 8:32am [facility] [address] [place] [address] Pulmonology Progress Note Signed Patient: Taurus Garcia MR#: [id number] : 1945 Acct:[id number] Age/Sex: 77 / M Adm Date: 3 Loc: Room: [address] [place] [address] Type: ADM IN Attending Dr: Eliezer Newell [...] embolism who was transferred from outside hospital ([facility]) with progressive decompensation likely related to myasthenia [...] <Electronically signed by MD Stanley Burt> 05/12/[address] [place] [address] Ctr Work Phone: 1(181) 608-623409-22-2023 Progress note Author Eliezer Newell [facility] May 12, 2023 12:47am Note Date/Time May 11, 2023 4:12pm [facility] [address] [place] [address] Hospitalist Progress Note Signed Patient: Taurus Garcia MR#: [id number] : 1945 Acct:[id number] Age/Sex: 77 / M Adm Date: 3 Loc: Room: [address] [place] [address] Type: ADM IN Attending Dr: Eliezer Newell MD Copies to: ~ Date of Service: 05/11/2023 Subjective Subjective Narrative: Assessment And Plan 77M with PMH of HTN, HLD, Myasthenia Gravis(Dx 2016), CKD, PE (On Eliquis) who was admitted to [facility] 05/09 for generalized weakness. He was intubated there then transferred for the evaluation and treatment of suspected acute myasthenia gravis exacerbation. Acute respiratory failure The patient required intubation at [facility] CXR 05/11 shows Continued cardiomegaly and [...] Lactated Ringers IV 05/10/24 01:59 75 mls/hr .[id number] DORI Administration Immune Globulin 30 gm in [...] signed by Eliezer Newell MD> 05/12/23 0047 [facility] Work Phone: 1([phone]) 153-791909-21-2023 Consult note Author Jamel Packer [facility] May 11, 2023 1:53pm Note Date/Time May 11, 2023 12:06pm [facility] [address] [place] [address] Neurology Consult Note Signed Patient: Taurus Garcia MR#: [id number] : 1945 Acct:[id number] Age/Sex: 77 / M Adm Date: 3 Loc: Room: [address] [place] [address] Type: ADM IN Attending Dr: Eliezer Newell MD Copies to: DO Komal Bajwa II, MD Marwan Wassouf, MD~ HPI Consult Date: 05/11/23 Correctional Officer Lieutenant: Jamel Packer DO [facility] Medical History Acute exacerbation of myasthenia gravis [...] mg PO DAILY 12/27/17 [History Confirmed 05/10/23] klkgsova-alx-kziop acid 0.4 mg-lycopene 300 mcg-lutein 250 mcg [...] Aide Moe M.D.05/11/2023 7:15 AM Dictation Location: [place] [address] Chest X-Ray 05/11/23 05:19 IMPRESSION: Continued cardiomegaly and mild parenchymal changes. Impression dictated by: Aide Moe M.D.05/11/2023 7:14 AM Dictation Location: [place] [address] Assessment/Plan (1) Myasthenic crisis: Assessment/Problem Details: CONSULT [...] emboli on chronic Eliquis. Transferred from [facility]. Initially presented there on May 09, [...] <Electronically signed by Jamel Packer DO> 05/11/23 4629 [facility] Work Phone: 1(869) 290-824009-21-2023 Consult note Author Lexy Chappell [facility] May 11, 2023 12:44pm Note Date/Time May 11, 2023 12:45pm [facility] [address] [place] [address] Pulmonology Consult Note Signed Patient: Taurus Garcia MR#: [id number] : 1945 Acct:[id number] Age/Sex: 77 / M Adm Date: 3 Loc: Room: [address] [place] [address] Type: ADM IN Attending Dr: Eliezer Newell [...] of pulmonary emboli who presented to [facility] with weakness, swallowing difficulties, and shortness [...] As mentioned above otherwise unremarkable [facility] Medical History Acute exacerbation of myasthenia gravis [...] mg PO DAILY 12/27/17 [History Confirmed 05/10/23] ptntsase-hdr-yggpu acid 0.4 mg-lycopene 300 mcg-lutein 250 mcg [...] signed by Lexy Chappell MD> 05/11/23 1244 [facility] Work Phone: 1([phone]) 402-491409-21-2023 History and physical note Author Jarret Garza [facility] May 11, 2023 1:33am Note Date/Time May 11, 2023 1:07am [facility] [address] [place] [address] Hospitalist H&P Signed Patient: Taurus Garcia MR#: [id number] : 1945 Acct:[id number] Age/Sex: 77 / M Adm Date: 3 Loc: Room: [address] [place] [address] Type: ADM IN Attending Dr: Jarret Garza MD Copies to: MD Jarret Gonsalves II, MD~ HPI DATE OF EXAMINATION: 05/11/23 CHIEF COMPLAINT: Acute exacerbation of myasthenia gravis HISTORY OF PRESENT ILLNESS: Patient is a 77-year-old male with 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 to our facility for concern of acute myasthenia gravis exacerbation. Patient presented to [facility] on 05/09/2023 complaining of weakness over3 [...] airway secretions, patient was intubated at [facility]. They reached outto our neurology service [...] mg PO DAILY 12/27/17 [History Confirmed 05/10/23] prccvvua-wwr-awowh acid 0.4 mg-lycopene 300 mcg-lutein 250 mcg [...] no leukocytosis from most recent labs at [facility]. Repeat labs in am -Will start antibiotics [...] Jarret Garza MD> 05/11/23 0133 [facility] Work Phone: 1(450) [phone] History of Present illness Narrative* Addison Vick MD - 10/18/2022 12:48 PM EST Physician Progress Note PATIENT: TAURUS GARCIA CSN #: [id number] : 1945 ADMIT DATE: 10/15/2022 6:59 PM [...] any questions. Danie Maldonado RN, CDS cell- [phone] office hours - [phone] Options provided: -- sepsis due to UTI [...] Morales MD 7:38 AM 10/18/2022 * Silke Hanye RN - 10/18/2022 2:14 AM EST Pt tele needing new patches multiple times this shift. When this personal lines underwriter went to pt room due to [...] there is no need to wear it. yard caller COMPUTER CUSTOMER SUPPORT SPECIALIST for hospitalist group notified. * Colten Rosen RCP - 10/17/2022 9:43 PM EST Pt has own CPAP machine from home Unit was checked. 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 [facility] Office: [phone] Dharmesh Barbosa DO, Taurus Hoover DO, Jae Vela DO, Aaron Dobson DO, Tu Diallo MD, Marisabel Roldan MD, Tiara Chambers MD, Lena Guerra MD, Honorio Vuong MD, Addison Vick MD, Caleb Espinoza DO, Enrico Myers MD, Shae Sanches DO, Eliel Rizzo MD, Maulik Regan MD, Danie Barbosa DO, Gracia Altamirano MD, Uziel Nesbitt MD, Real De La Cruz DO, Haven Urieb MD, Nicolle Barros MD, Risa Chawla MD, Diann Vang MD, Stanley Valdes DO, Viri Sesay MD, Israel Lara MD, Marcelle Decker, ZIPPER SETTER, Adore Fraga, ZIPPER SETTER, Jolly Cardona, ZIPPER SETTER, Komal Bauer, ZIPPER SETTER, Malaika Ortiz, DNP, Cynthia Amado, ZIPPER SETTER, Dee Lazo, ZIPPER SETTER, Joana Ponce, ZIPPER SETTER, Mookie Castro, ZIPPER SETTER, Teresita Robb, ZIPPER SETTER, Jarrod Ladd PA-C, Eliza Majano, MARKETING SPECIALIST, Susanne Mock, ZIPPER SETTER, Jaja Stanton, ZIPPER SETTER [facility] Progress Note 10/17/2022 11:11 AM Name: Taurus Garcia Acct: [id number] Room: [address] [place] [address] Day: 2 Admit Date: 10/15/2022 6:59 PM [...] post TURBTx2, BCG therapy who presented to [facility] 10/13 with penile bleeding/suspected Smith trauma with BCG installation status post Smith placement, and discharged home. Patient returned to [facility] earlier today with fevers with suspected sepsis with Smith associated UTI and recommended for transfer to [facility] for urologic evaluation Status post second BCG [...] No results for input(s): PROT, LABALBU, LABA1C, N7JYMBW, G0PKKCJ, FT4, TSH, AST, ALT, LDH, GGT, ALKPHOS, LABGGT, BILITOT, BILIDIR, AMMONIA, AMYLASE, LIPASE, LACTATE, CHOL, HDL, LDLCHOLESTEROL, CHOLHDLRATIO, TRIG, VLDL, TFD43GT, PHENYTOIN, PHENYF, URICACID, POCGLU in the last 72 hours. ABG:No results found for: POCPH, PHART, PH, POCPCO2, EOF9AYS, PCO2, POCPO2, PO2ART, PO2, POCHCO3, MOD6MQS, HCO3, NBEA, PBEA, BEART, BE, THGBART, THB, YYR0KTK, ZFUO8WCG, Q8ZDEKVR, O2SAT, FIO2 No results found for: SPECIAL [...] Fever, unspecified 10/15/2022 Yes Bladder cancer ([facility]) 10/16/2022 Yes Gross hematuria 10/16/2022 Yes Malaise and fatigue 10/16/2022 Yes Acute weakness 10/16/2022 Yes Myasthenia gravis ([facility]) 10/16/2022 Yes JAMISON (obstructive sleep apnea) 10/16/2022 Yes Current chronic use of systemic steroids 10/16/2022 Yes Type 2 diabetes mellitus with diabetic neuropathy, without long-term current use of insulin ([facility]) 10/16/2022 Yes Morbid obesity ([facility]) 10/16/2022 Yes Hyponatremia 10/16/2022 Yes Hypokalemia 10/16/2022 Yes Acute retention of urine 10/16/2022 Yes Hypomagnesemia 10/16/2022 Yes Hypocalcemia 10/16/2022 Yes CRP elevated 10/17/2022 Yes Elevated procalcitonin 10/17/2022 Yes Bandemia 10/17/2022 Yes SIRS (systemic inflammatory response syndrome) ([facility]) 10/17/2022 Yes Plan: Acute fever, possible sepsis [...] were not included. [facility] - Infectious diseases evaluation admission date [...] to the BCG instillation Infection Control Recommendations [place] Precautions Contact Isolation Antimicrobial Stewardship Recommendations Simplification of therapy Targeted therapy History of Present Illness: Initial history: Taurus Garcia is a 77 y.o.-year-old male transferred from [facility] because of sepsis. He has a history of BCG due to high-grade known muscle invasive bladder cancer, post TURBT x2 his last BCG was 10/13/2022 They noticed some bleeding from the urethra after the BCG installation and hence came to [facility], they thought it might be from the prior Smith, so another Smith was placed and was discharged home. That he came back with fatigue malaise fever chills. There was a concern for urosepsis and urine analysis was abnormal. He was sent to [facility] Interval changes 10/17/2022 Patient Vitals for the past 8 hrs: Weight 10/17/22 0600 (!) 318 lb 7 oz (144.4 kg) 10/17 Afebrile, vitals stable UA many WBC, nitrate and small leukocyte esterase Complaining of diarrhea overnight, liquid BM every 45 min, no foul smell Summary of relevant labs: Labs: Platelet, [id number] WBC6.3 CRP86.3 High Procalcitonin0.20 High Micro: U [...] Keiko Jc Office: Perfect serve / office [phone] I have discussed the care of the [...] Bandemia SIRS (systemic inflammatory response syndrome) ([facility]) Plan: Follow-up culture results Appreciate infectious disease recommendations Maintain Smith catheter for now, will void trial prior to discharge No active urologic intervention planned Please call urology for any further questions Jovan Morales MD 7:22 AM 10/17/2022 * Honorio Vuong MD - 10/16/2022 11:27 AM EST Images from the original note were not included. [facility] Office: [phone] Dharmesh Barbosa DO, Taurus Hoover DO, Jae Vela DO, Aaron Dobson DO, Tu Diallo MD, Marisabel Roldan MD, Tiara Chambers MD, Lena Guerra MD, Honorio Vuong MD, Adidson Vick MD, Caleb Espinoza DO, Enrico Myers MD, Shae Sanches DO, Eliel Rizzo MD, Maulik Regan MD, Danie Barbosa DO, Gracia Altamirano MD, Uzeil Nesbitt MD, Real De La Cruz DO, Haven Uribe MD, Nicolle Barros MD, Risa Chawla MD, Diann Vang MD, Stanley Valdes DO, Viri Sesay MD, Israel Lara MD, Marcelle Decker, GM, Adore Fraga, GM, Jolly Cardona, GM, Komal Bauer, GM, Malaika Ortiz DNP, Cynthia Amado, GM, Dee Lazo, ZIPPER SETTER, Joana Ponce, ZIPPER SETTER, Mookie Castro, ZIPPER SETTER, Teresita Robb, ZIPPER SETTER, Jarrod Ladd PA-C, Eliza Majano, MARKETING SPECIALIST, Susanne Mock, GM, Jaja Stanton, GM [facility] Progress Note 10/16/2022 11:27 AM Name: Taurus Garcia Acct: [id number] Room: [address] [place], [place] [address] Day: 1 Admit Date: 10/15/2022 6:59 [...] post TURBTx2, BCG therapy who presented to [facility] 10/13 with penile bleeding/suspected Smith trauma with BCG installation status post Smith placement, and discharged home. Patient returned to [facility] earlier today with fevers with suspected sepsis with Smith associated UTI and recommended for transfer to [facility] for urologic evaluation Patient describes abrupt onset [...] Smith with decompression. Patient did return to [facility] ED earlier today with persistent malaise and [...] No results for input(s): PROT, LABALBU, LABA1C, X8NUCMT, L9ZRJXG, FT4, TSH, AST, ALT, LDH, GGT, ALKPHOS, LABGGT, BILITOT, BILIDIR, AMMONIA, AMYLASE, LIPASE, LACTATE, CHOL, HDL, LDLCHOLESTEROL, CHOLHDLRATIO, TRIG, VLDL, KNC83HM, PHENYTOIN, PHENYF, URICACID, POCGLU in the last 72 hours. ABG:No results found for: POCPH, PHART, PH, POCPCO2, VWJ9UXA, PCO2, POCPO2, PO2ART, PO2, POCHCO3, HSS4PBT, HCO3, NBEA, PBEA, BEART, BE, THGBART, THB, TXW0HLI, GIDD4DJW, P6RCNPZP, O2SAT, FIO2 No results found for: SPECIAL [...] 10/16/2022 11:08 AM documented in this encounterBON [facility]PER SPRINGS [facility]OSPITALP[facility] [employer] Work Phone: 1(398) 188-493902-28-2023 Hospital course Narrative* Addison Vick MD - 10/18/2022 12:10 PM EST Images from the original note were not included. [facility] Office: [phone] Dharmesh Barbosa DO, Taurus Hoover DO, Jae [...] Sesay MD, Israel Lara MD, Marcelle Decker, ZIPPER SETTER, Adore Fraga, ZIPPER SETTER, Jolly Cardona, ZIPPER SETTER, Komal Bauer, ZIPPER SETTER, Malaika Ortiz, DNP, Cynthia Amado, ZIPPER SETTER, Dee Lazo, ZIPPER SETTER, Joana Ponce, ZIPPER SETTER, Mookie Castro, ZIPPER SETTER, Teresita Robb, ZIPPER SETTER, Jarrod Ladd PA-C, Eliza Majano, MARKETING SPECIALIST, Susanne Mock, ZIPPER SETTER, Jaja Stanton, ZIPPER SETTER [facility] Discharge Summary Patient ID: Taurus Garcia : 1945 ACCOUNT: [id number] Patient's PCP: Komal Schaffer MD Admit Date: [...] Physician Follow Up: Komal Schaffer MD [address] [address] Follow up in 1 week(s) your urologist [...] this patient's care. 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 Any problems you or family members [...] provider tells you to take them. Taking nadr-qtg-hblqcdr medicines, vitamins, herbs, and supplements. Tests You [...] 06/03/2010 Document Revised: 03/08/2019 Document Reviewed: 03/08/2019 [employer] Patient Education 2020 [employer]. Follow Up Care 03/03/2022 14:58:42 With:Autumn Molina MD, Yoko Hair, URO Address: [facility] [address], [place] [address]- [phone] When: Unknown Comments:schedule Cysto/TURBT and CT [facility] [place] 07-14-2022 Hospital Discharge instructions Patient Education 03/03/2022 11:28:54 Post Op Patient Instructions - FT (CUSTOM) Follow Up Care 02/09/2022 11:58:15 With:Yoko Leyva Address: [facility] [address] [place] [address]- Business (1) When:2 to 4 weeks Comments:Reviewed pathology report and plan exudative treatment.Call for any problems.Call for followup appointment [facility]07-05-2022 Note [id number]:[id number] 02-01-2022 Hospital Discharge instructions Patient Education 02/01/2022 [...] cells. Follow these instructions at home: Take etgm-lek-rpgpctd and prescription medicines only as told by [...] is important. Where to find more information [place] [employer]: www.cancer.org National Cancer [place] (NCI): www.cancer.gov Contact a health care provider [...] 08/09/2004 Document Revised: 07/20/2018 Document Reviewed: 07/11/2017 [employer] Patient Education 2020 [employer]. [facility] 05-09-2022 Hospital Discharge instructions Patient Education 12/27/2021 [...] Follow these instructions at home: Medicines Take hshk-kfj-ikvqxjb and prescription medicines only as told by [...] or the blood stops without treatment. Take xmuv-dss-ehciqkq and prescription medicines only as told by your health care provider. Drink enough fluid to keep your urine clear or pale yellow. This information is not intended to replace advice given to you by your health care provider. Make sure you discuss any questions you have with your health care provider. Document Released: 08/07/2006 Document Revised: 01/01/2020 Document Reviewed: 09/09/2017 [employer] Patient Education 2020 [employer]. Follow Up Care 12/07/2021 14:21:16 With:Autumn Molina MD, Yoko Hair, URO Address: [facility] [address] , [place] [address]- When: Unknown Comments:schedule follow up after TURBT [facility] 04-19-2022 Hospital Discharge instructions Patient [...] Follow these instructions at home: Medicines Take fuji-cpp-ygmitgo and prescription medicines only as told by [...] or the blood stops without treatment. Take nhll-ktq-flltdok and prescription medicines only as told by your health care provider. Drink enough fluid to keep your urine clear or pale yellow. This information is not intended to replace advice given to you by your health care provider. Make sure you discuss any questions you have with your health care provider. Document Released: 08/07/2006 Document Revised: 01/01/2020 Document Reviewed: 09/09/2017 [employer] Patient Education 2020 [employer]. Follow Up Care 11/05/2021 14:25:01 With:Autumn Molina MD, Yoko Hair URO Address: [facility] [address] [place] [address] [phone] When: Unknown [facility] discharge summary Author Chau Lara [facility] May 21, 2023 12:26pm Note Date/Time May 21, 2023 12 :23pm [facility] [address] [place] [id number] Discharge Summary Signed Patient: Taurus Garcia MR#: [id number] : 1945 Acct:[id number] Age/Sex: 77 / M Adm Date: 3 Loc: Room: [address] [place] [address]: Chau Lara MD Copies to: [...] PE(On Eliquis) who was admitted to [facility] 05/09 for generalized weakness. He was [...] Plan Patient Disposition: Rehab [facility] Additional Instructions: Inpatient Rehab to manage care: [...] Chau Lara MD> 05/21/23 1226 [facility] Work Phone: Evaluation + Plan note Future Appointments Appointment Date:12/27/2021 01:00:00 PM Scheduled Provider:Autumn Molina MD, Yoko Hair Location:[facility] Appointment Type:URO Procedure 15 min Diagnostic Tests Pending * UroVysion Fish and Urine Cyto ([facility]) 12/07/21 * UroVysion Fish and Urine Cyto ([facility]) 12/07/21 [facility] evaluation + Plan note Future Appointments Appointment Date:02/01/2022 10:30:00 AM Scheduled Provider:Yoko Leyva Jr., MD Location:[facility] Appointment Type:URO Office Visit [facility] evaluation + Plan note Future Appointments Appointment Date:02/01/2022 10:30:00 AM Scheduled Provider:Yoko Leyva Jr., MD Location:[facility] Appointment Type:URO Office Visit Diagnostic Tests Pending * Urine Culture 01/21/22 [facility] + Plan note Future Appointments Appointment Date:03/03/2022 11:00:00 AM Scheduled Provider: Location:[facility] Appointment Type:Surgery FT Diagnostic Tests Pending * Urine Culture 02/17/22 [facility] + Plan note Future Appointments Appointment Date:03/29/2022 11:00:00 AM Scheduled Provider:Yoko Leyva Jr., MD Location:[facility] Appointment Type:URO Office Visit [facility] note* Diagnosis Malignant neoplasm of overlapping sites of bladder (HCC)- Primary Malignant neoplasm of other specified sites of bladder documented in this encounter [facility] note* Diagnosis Screening for genitourinary condition Screening for other and unspecified genitourinary condition documented in this encounter [facility] noteNo assessment information available[facility] Work Phone: Evaluation note* Diagnosis Fever, [...] response syndrome, unspecified documented in this encounter [facility] Work Phone: evaluation note* Diagnosis Onset Date [...] infection) due to Enterococcus acute [facility] Work Phone: Evaluation note* Diagnosis Onset [...] acut e Pulmonary emboli acute [facility] Work Phone: Evaluation note* Diagnosis Paroxysmal atrial fibrillation (CMS/HCC) Atrial fibrillation Pulmonary embolism, unspecified chronicity, unspecified pulmonary embolism type, unspecified whether acute cor pulmonale present (CMS/HCC) Myasthenia gravis (CMS/HCC) Myasthenia gravis without exacerbation High risk medication use Essential hypertension Unspecified essential hypertension Mixed hyperlipidemia Morbid obesity with BMI of 45.0-49.9, adult (CMS/[facility]) documented in this encounter [facility] Work Phone: Evaluation note* Diagnosis Bilateral leg weakness- Primary Muscle weakness (generalized) Difficulty walking Difficulty in walking Right leg pain Pain in soft tissues of limb documented [facility]* Diagnosis Type 2 diabetes mellitus with diabetic neuropathy, without long-term current use of insulin ([facility])- Primary Benign essential hypertension ([facility]) Essential hypertension, benign Paroxysmal atrial fibrillation ([facility]) Atrial fibrillation documented in this encounter [facility] [...] tissues of limb documented in this encounter [facility]* Diagnosis Routine general medical examination at health care facility- Primary Routine general medical examination at a health care facility ACP (advance care planning) Other specified counseling Osteoarthritis of spine with radiculopathy, 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, without long-term current use of insulin ([facility]) Type 2 diabetes 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, without long-term current use of insulin ([facility]) Myasthenia gravis without (acute) exacerbation (G70.00) Atherosclerosis of [place] artery of both lower extremities with intermittent claudication ([facility]) Morbid (severe) obesity due to excess calories (E66.01) Body mass index [BMI] 45.0-49.9, adult (Z68.42) documented in this encounter [facility]* Diagnosis Myasthenia gravis ([facility])- Primary Myasthenia gravis without exacerbation Class 3 severe obesity due to excess calories with serious comorbidity and body mass index (BMI) of 45.0 to 49.9 in adult ([facility]) documented [facility]* Diagnosis 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cosis of toenails of both feet- Primary Venous insufficiency Unspecified venous (peripheral) insufficiency documented in this encounter [facility] note* Diagnosis Onset Date Resolution Status Acute hypokalemia acute Dyspnea acute Generalized weakness acute [facility] Work Phone: Evaluation note* Diagnosis Onset Date Resolution Status Acute exacerbation of myasthenia gravis acute Acute hypokalemia acute Dyspnea acute Generalized weakness acute History of pulmonary embolism acute JAMISON on CPAP acute Acute exacerbation of myasthenia gravis acute Dyspnea acute Generalized weakness acute History of pulmonary embolism acute JAMISON on CPAP acute [facility] Work Phone: Evaluation note* Diagnosis Cervical stenosis of spinal canal Spinal stenosis in cervical region documented in this encounter [facility] HealthcareEvaluation note* Diagnosis Myasthenia gravis (CMS/HCC) Myasthenia gravis without exacerbation 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cosis of toenails of both feet- Primary Venous insufficiency Unspecified venous (peripheral) insufficiency documented in this encounter [facility] note* Diagnosis Myasthenia gravis (CMS/HCC)- Primary Myasthenia gravis without exacerbation Acute on chronic right-sided heart failure (CMS/HCC) documented in this encounter [facility] note* Diagnosis Myasthenia gravis (CMS/HCC)- [...] 45.0-49.9, adult (CMS/HCC) documented in this encounter [facility] HealthcareEvaluation note* Diagnosis Benign essential hypertension (CMS/HCC)- Primary Essential hypertension, benign Yeast dermatitis Bradycardia Other specified cardiac dysrhythmias documented in this encounter [facility] HealthcareEvaluation note* Diagnosis Paroxysmal atrial fibrillation (Multi)- Primary Atrial fibrillation High risk medication use documented in this encounter [facility] Work Phone: Evaluation note* Diagnosis Localized edema- Primary Edema Essential hypertension Unspecified essential hypertension BMI 45.0-49.9, adult (Multi) Paroxysmal atrial fibrillation (Multi) Atrial fibrillation documented in this encounter [facility] Work Phone: Evaluation note* Diagnosis Pain [...] both upper extremities documented in this encounter [facility] Healthcare[facility] note* Diagnosis Localized edema- Primary Edema Essential hypertension Unspecified essential hypertension BMI 45.0-49.9, adult (Multi) Paroxysmal atrial fibrillation (Multi) Atrial fibrillation BMI 45.0-49.9, adult (Multi)- Primary Localized edema Edema documented in this encounter [facility] Work Phone: Evaluation note* Diagnosis Pain [...] HealthcareHistory and physical note Author Mateo Horne [facility] June 19, 2024 2:37pm Note Date/Time June 19, 2024 2 :37pm [facility] [address] [place] [address] Hospitalist H&P Signed Patient: aTurus Garcia MR#: [id number] : 1945 Acct:[id number] Age/Sex: 78 / M Adm Date: 4 Loc: Room: [address] [place] [address] Type: ADM IN Attending Dr: Mateo Horne [...] ago, inSeptember, he presented to the [facility] emergency room and had to be [...] mentioned elsewhere in the documentation. [facility] Medical History (Updated 06/19/24 @ 14:33 by [...] mg PO DAILY 12/27/17 [History Confirmed 06/19/24] bcktkqaj-lmq-ubtnu acid 0.4 mg-lycopene 300 mcg-lutein 250 mcg [...] % (Auto) 27.5 % (.) 06/19/24 09:49 [place] % (Auto) 11.3 % (.) 06/19/24 09:49 Eos % (Auto) 1.2 % (.) 06/19/24 09:49 Baso % (Auto) 1.0 % (.) 06/19/24 09:49 Nucleat RBC Rel Count 0.1 /100 WBC (0-0.5) 06/19/24 09:49 Neut # (Auto) 5.1 x10E3/uL (1.8-7.7) 06/19/24 09:49 Lymph # (Auto) 2.4 x10E3/uL (1.00-4.8) 06/19/24 09:49 [place] # (Auto) 1.0 x10E3/uL (0.0-0.8) H 06/19/24 [...] Mateo Horne DO> 06/19/24 1437 [facility] Work Phone: History and physical note Author Denzel Zamora [facility] Note Date/Time September 11, 2024 4 :18pm [facility] [address] [place] [address] Hospitalist H&P Signed Patient: Taurus Garcia MR#: [id number] : 1945 Acct:[id number] Age/Sex: 78 / M Adm Date: 5 Loc: Room: [address] [place] [address] Type: ADM IN Attending Dr: Denzel Zamora [...] and planned nerve block, recent admission to retirement after admission in 07/2024for weakness, presented to [facility] with shortness of breath concerning for myasthenia [...] no loss of motor function [facility] Medical History Chronic back pain Chronic anticoagulation [...] mg PO DAILY 12/27/17 [History Confirmed 09/11/24] jazlmnrg-yoo-jqetq acid 0.4 mg-lycopene 300 mcg-lutein 250 mcg [...] and planned nerve block, recent admission to retirement after admission in 07/2024for weakness, presented to [facility] with shortness of breath concerning for myasthenia [...] signed by Denzel Zamora MD> 09/11/24 1618 [facility] Work Phone: History of Present illness [...] medication regimen. He denies medication side effects. -[facility] 250 DO Work Phone: History of Present [...] medication regimen. He denies medication side effects. -[facility] 600 DO Work Phone: Hospital course Narrative No data available for this section [facility] Hospital Discharge instructions No data available for this section [facility] Hospital Discharge instructions Additional Instructions Inpatient [...] unable to urinate, smith catheter removed on [facility] Work Phone: Hospital Discharge instructions Additional Instructions Call Dr. Saunders's office tomorrow [facility] are [facility] Work Phone: Progress note No data available for this section [facility] progress note Author Silvestre Grover [facility] June 10, 2023 9:35am Note Date/Time June 10, 2023 9 :35am [facility] [address] [place] [address] Physiatry(Rehab) Progress Note Signed Patient: Taurus Garcia MR#: [id number] : 1945 Acct:[id number] Age/Sex: 77 / M Adm Date: 3 Loc: Room: [address] [place] [address] Type: ADM IN Attending Dr: Silvestre Grover MD Copies to: ~ Date of Service: 06/09/2023 Subjective Subjective Narrative: Mr. Garcia is a 77 year old male with past medical history of myasthenia gravis,hypertension, A-fib anticoagulated with Eliquis, PE, CKD, obstructive sleep apnea on BiPAP, who presents to acute inpatient rehab with functional impairments due to MG crisis. Patient presented to [facility] on 05/11/2023 with complaints of worseninggeneralized weakness over the course of several days. He was found to be mildlyhypoxic. Also complaining of urinary symptoms. Initially admitted to [facility] for observation however developed worsening respiratory status with increased secretions and inability to protect own airway and was subsequently intubated and transferred to [facility] for neurology services. Patient received a 5-day [...] mg 05/21/23 14:25 Bisacodyl 10 Mg Supp.Rect GA 05/20/24 14:24 DAILY PRN Constipation Docusate Sodium 100 mg 05/21/23 14:25 Docusate 100 Mg Capsule PO 05/20/24 14:24 BID PRN Constipation Docusate Sodium 283 mg 05/21/23 14:25 Docusate Enema 283 Mg/5 Ml Enema GA 05/20/24 14:24 DAILY PRN Constipation Fish Oil 1,000 mg 05/21/23 21:00 06/10/23 09:09 [place]-3/Fish Oil 1,000 Mg Capsule PO 05/20/24 20:59 [...] 05/31/24 08:59 Not Given DAILY DORI Pyridostigmine Fay 60 mg 05/21/23 18:00 06/10/23 09:09 Pyridostigmine Fay 60 Mg Tablet PO 05/20/24 17:59 60 [...] secondaryto myasthenic crisis. Initially admitted to [facility]. Had to be [...] equipment to enhance the patient's a functional islam Ensure adequate nutrition and hydration Sleep: No concerns. Pain: Continue current regimen Discharge planning: Hopefully home with his tomorrow. Plan: I completed a substantive portion of this encounter, the medical decision makingportion of this note in its entirety, including Allied health note review, nursing note review, disaster recovery consultant note review, discussion with nursing and case management, and more than 50% of my time was spent on counseling and coordination of care, time spent 25 minutes Patient was personally seen by me, Dr. Grover, on the day of encounter, reviewed the history and the relevant portions of the chart, including current orders, allied health and disaster recovery consultant notes, labs/imaging and performed garcia elements of exam and I formulated the plan of care and facilitated the medical decision making. Documented By: Silvestre Grover MD 06/10/23 0934 Signed By: <Electronically signed by Silvestre Grover MD> 06/10/23934 [facility] Work Phone: Reason for referral (narrative)* Consultation (Routine) - Authorized Specialty Diagnoses / Procedures Referred By Contac t Referred To Contact Cardiology Diagnoses Paroxysmal atrial fibrillation (CMS/HCC) Essential hypertension Mixed hyperlipidemia Procedures Follow Up In Cardiology Baltazar Hoover DO [address] [facility] 2, [address] [address] Baltazar Hoover DO [address] [facility] 2, [address] [address] Referral ID Status Reason Start Date Expiration Date V isits Requested Visits Authorized [id number] Authorized 09/20/2023 09/19/2024 1 1 * Cardiovascular (Routine) - Authorized Specialty Diagnoses / Procedures Referred By Contac t Referred To Contact Diagnoses Paroxysmal atrial fibrillation (CMS/HCC) Procedures ECG 12 Lead Baltazar Hoover DO [address] [facility] 2, [address] [address] Referral ID Status Reason Start Date Expiration Date V isits Requested Visits Authorized [id number] Authorized 09/20/2023 09/19/2024 1 1 * Cardiovascular (Routine) - Pending Review Specialty Diagnoses / Procedures Referred By Contac t Referred To Contact Cardiology Diagnoses Paroxysmal atrial fibrillation (CMS/HCC) Procedures Holter Or Event Radio Interference Trouble Shooter Baltazar Hoover DO [address] [place] [address] 2, [address] [address] Referral ID Status Reason Start Date Expiration Date V isits Requested Visits Authorized [id number] Pending Review 09/20/2023 09/19/2024 1 1 * Consultation (Routine) - Authorized Specialty Diagnoses / Procedures Referred By Contac t Referred To Contact Cardiology Diagnoses Paroxysmal atrial fibrillation (CMS/HCC) Procedures Follow Up In Cardiology Baltazar Hoover DO [address] [facility] 2, [address] [address] Willy Leyva, BOWLING ALLEY MANAGER-ZIPPER SETTER [address] [place] [address] 2, [place] [phone] Referral ID Status Reason Start Date Expiration Date V isits Requested Visits Authorized [id number] Authorized 09/20/2023 09/19/2024 1 1 [facility] Work Phone: Reason for referral (narrative)No reason for referral information [facility] Work Phone: Summary Purpose Family History [...] section and content) DATE CREATED AUTHOR 02/07/2018 [facility] DATE CREATED AUTHOR AUTHOR'S ORGANIZ ATION 09/01/2021 [employer] DATE CREATED AUTHOR AUTHOR'S ORGANIZ ATION 01/21/2022 [facility] DATE CREATED AUTHOR AUTHOR'S ORGANIZ ATION 02/12/2022 [facility] dical Specialist DATE CREATED AUTHOR AUTHOR'S ORGANIZ ATION 07/28/2022 [facility] DATE CREATED AUTHOR AUTHOR'S ORGANIZ ATION 10/19/2022 [facility] DATE CREATED AUTHOR AUTHOR'S ORGANIZ ATION 05/26/2023 [facility] DATE CREATED AUTHOR AUTHOR'S ORGANIZ ATION 09/24/2023 [facility] DATE CREATED AUTHOR AUTHOR'S ORGANIZ ATION 11/10/2024 [facility] DATE CREATED AUTHOR AUTHOR'S ORGANIZ ATION 01/18/2025 [facility] DATE CREATED AUTHOR AUTHOR'S ORGANIZ ATION 03/03/2025 [facility] DATE CREATED AUTHOR AUTHOR'S ORGANIZ ATION 05/01/2025 [facility] DATE CREATED AUTHOR AUTHOR'S ORGANIZ ATION 05/27/2025 [facility] d[facility] Specialists EPIC DATE CREATED AUTHOR AUTHOR'S ORGANIZ ATION 05/31/2025 [facility] Care Team (unrecognized sect ion and content) [...] Active Ivan Barnhart MD Attending Provider Active Certified Peer Specialist Relationship Specialty Start Date End Date Komal Schaffer II [address] [place] [address] PCP - General Internal Medicine 12/05/16 Certified Peer Specialist Relationship Specialty Start Date End Date Komal Schaffer II [address] [place] [address] PCP - General Internal Medicine 12/05/16 Certified Peer Specialist Relationship Specialty Start Date End Date Komal Schaffer MD [address] [place] [address] PCP - General Internal Medicine 10/14/22 Team [...] , DO Other Provider Active Nikole Mosqueda BOWLING ALLEY MANAGER Other Provider Active Rubia Henning , COMPUTER CUSTOMER SUPPORT SPECIALIST-C Other Provider Active Mookie Tamayo , BOWLING ALLEY MANAGER-SKIFF OPERATOR-C Other Provider Active Silvestre Grover MD Other Provider Active Donita Armstrong BOWLING ALLEY MANAGER ACNP-BC Other Provider Active Lexy Chappell MD [...] MD Other Provider Active Sudhakar Leon , BOWLING ALLEY MANAGER Other Provider Active Meri Blanco , DO [...] MD Other Provider Active Candida Perez , COMPUTER CUSTOMER SUPPORT SPECIALIST-C Other Provider Active Kushal Vizcarra MD Other [...] MD Other Provider Active Yuki Leyva , BOWLING ALLEY MANAGER Other Provider Active Queenie Shepherd , BOWLING ALLEY MANAGER Other Provider Active Suraj Razo MD Other Provider Active Komal Albright MD Other Provider Active Angelia K Vera , BOWLING ALLEY MANAGER Other Provider Active Mariana Xiong , HEATHER Other Provider Active Certified Peer Specialist Relationship Specialty Start Date End Date Komal Schaffer MD [address] [place] [address] PCP - General 05/18/23 Certified Peer Specialist Relationship Specialty Start Date End Date Komal Schaffer MD [address] [place] [address] PCP - General Internal Medicine 01/02/23 Komal Schaffer MD [address] [place] [address] PCP - ACO Reach 01/12/23 Certified Peer Specialist Relationship Specialty Start Date End Date Komal Schaffer MD [address] [place] [address] PCP - General Internal Medicine 01/02/23 Komal Schaffer MD [address] [place] [address] PCP - ACO Reach 01/12/23 Certified Peer Specialist Relationship Specialty Start Date End Date Komal Schaffer MD [address] [place] [address] PCP - General Internal Medicine 01/02/23 Komal Schaffer MD [address] [place] [address] PCP - ACO Reach 01/12/23 Certified Peer Specialist Relationship Specialty Start Date End Date Komal Schaffer MD [address] [place] [address] PCP - General Internal Medicine 01/02/23 Komal Schaffer MD [address] [place] [address] PCP - ACO Reach 01/12/23 Certified Peer Specialist Relationship Specialty Start Date End Date Komal Schaffer MD [address] [place] [address] PCP - General Internal Medicine 01/02/23 Komal Schaffer MD [address] [place] [address] PCP - ACO Reach 01/12/23 Certified Peer Specialist Relationship Specialty Start Date End Date Komal Schaffer MD [address] [place] [address] PCP - General Internal Medicine 01/02/23 Komal Schaffer MD [address] [place] [address] PCP - ACO Reach 01/12/23 Team Status: Inactive Member Role Status Dates Komal Schaffer II MD Primary Care Provider Active Start: February 12, 2024 End: February 12, 2024 Eriberto Leyva MD Emergency Provider Active Star t: February 12, 2024 End: February 12, 2024 Certified Peer Specialist Relationship Specialty Start Date End Date Komal Schaffer MD [address] [place] [address] PCP - General Internal Medicine 01/02/23 Komal Schaffer MD [address] [place] [address] PCP - ACO Reach 01/12/23 Certified Peer Specialist Relationship Specialty Start Date End Date Komal Schaffer MD [address] [place] [address] PCP - General Internal Medicine 01/02/23 Komal Schaffer MD [address] [facility] [address] [place] [address] PCP - ACO Reach 01/12/23 Certified Peer Specialist Relationship Specialty Start Date End Date Komal Schaffer MD [address] [facility] [address] [place] [address] PCP - General Internal Medicine 01/02/23 Komal Schaffer MD [address] [facility] [address] [place] [address] PCP - ACO Reach 01/12/23 Team Status: [...] 22, 2024 End: July 04, 2024 Mateo oHrne DO Other Provider Active Start: June 22, [...] t: June 22, 2024 Melva Mendoza , HEATHRE Other Provider Active Start : June 22, [...] Provider Active Star t: June 22, 2024 Kushla Vizcarra MD Other Provider Active Start: June [...] Sta rt: June 22, 2024 Yuki Leyva BOWLING ALLEY MANAGER Other Provider Active Start : June 22, 2024 Queenie Shepherd BOWLING ALLEY MANAGER Other Provider Active St art: June 22, [...] Provider Active Start: N 2023 Antonia Grier BOWLING ALLEY MANAGER Attending Provider Active Start: June 22, 2024 [...] Provider Active Start: Jun Candida Perez , COMPUTER CUSTOMER SUPPORT SPECIALIST-C Other Provider Active St art: June 24, [...] : June 24, 2024 Queenie Shepherd , BOWLING ALLEY MANAGER Other Provider Active St art: June 24, [...] Other Provider Active Start: July 09, 2024 Certified Peer Specialist Relationship Specialty Start Date End Date Komal Schaffer MD [address] [place] [address] PCP - General Internal Medicine 01/02/23 Komal Schaffer MD [address] [place] [address] PCP - ACO Reach 01/12/23 Certified Peer Specialist Relationship Specialty Start Date End Date Komal Schaffer MD [address] [place] [address] PCP - General Internal Medicine 01/02/23 Komal Schaffer MD [address] [place] [address] PCP - ACO Reach 01/12/23 Certified Peer Specialist Relationship Specialty Start Date End Date Komal Schaffer MD [address] [place] [address] PCP - General Internal Medicine 01/02/23 Komal Schaffer MD [address] [place] [address] PCP - ACO Reach 01/12/23 Team Status: [...] September 11, 2024 End: September 13, 2024 Certified Peer Specialist Relationship Specialty Start Date End Date Komal Schaffer MD [address] [facility] [address] [place] [address] PCP - General Internal Medicine 01/02/23 Komal Schaffer MD [address] [place] [address] PCP - ACO Reach 01/12/23 Certified Peer Specialist Relationship Specialty Start Date End Date Komal Schaffer MD [address] [facility] [address] [place] [address] PCP - General Internal Medicine 01/02/23 Komal Schaffer MD [address] [place] [address] PCP - ACO Reach 01/12/23 Certified Peer Specialist Relationship Specialty Start Date End Date Komal Schaffer MD [address] [place] [address] PCP - General Internal Medicine 01/02/23 Komal Schaffer MD [address] [place] [address] PCP - ACO Reach 01/12/23 Esther Connolly, RN Clinical Advocate Family Medicine 09/27/24 Certified Peer Specialist Relationship Specialty Start Date End Date Komal Schaffer MD [address] [place] [address] PCP - General Internal Medicine 01/02/23 Komal Schaffer MD [address] [place] [address] PCP - ACO Reach 01/12/23 Esther Connolly, RN Clinical Advocate Family Medicine 09/27/24 Certified Peer Specialist Relationship Specialty Start Date End Date Komal Schaffer MD [address] [place] [address] PCP - General 05/18/23 Certified Peer Specialist Relationship Specialty Start Date End Date Komal Schaffer MD [address] [place] [address] PCP - General 05/18/23 Certified Peer Specialist Relationship Specialty Start Date End Date Komal Schaffer MD [address] [place] [address] PCP - General Internal Medicine 01/02/23 Komal Schaffer MD [address] [place] [address] PCP - ACO Reach 01/12/23 Anastasia Rayo LPN 11/08/24 Certified Peer Specialist Relationship Specialty Start Date End Date Komal Schaffer MD [address] [place] [address] PCP - General Internal Medicine 01/02/23 Komal Schaffer MD [address] [place] [address] PCP - ACO Reach 01/12/23 Anastasia Rayo LPN 11/08/24 Certified Peer Specialist Relationship Specialty Start Date End Date Komal Schaffer MD [address] [place] [address] PCP - General Internal Medicine 01/02/23 Komal Schaffer MD [address] [place] [address] PCP - ACO Reach 01/12/23 Anastasia Rayo LPN 11/08/24 Certified Peer Specialist Relationship Specialty Start Date End Date Komal Schaffer MD [address] [place] [address] PCP - General Internal Medicine 01/02/23 Komal Schaffer MD [address] [place] [address] PCP - ACO Reach 01/12/23 Anastasia Rayo LPN 11/08/24 Certified Peer Specialist Relationship Specialty Start Date End Date Komal Schaffer MD [address] [place] [address] PCP - General Internal Medicine 01/02/23 Komal Schaffer MD [address] [place] [address] PCP - ACO Reach 01/12/23 Ansatasia Rayo LPN 11/08/24 Certified Peer Specialist Relationship Specialty Start Date End Date Komal Schaffer MD [address] [place] [address] PCP - General Internal Medicine 01/02/23 Komal Schaffer MD [address] [place] [address] PCP - ACO Reach 01/12/23 Anastasia Rayo LPN 11/08/24 Certified Peer Specialist Relationship Specialty Start Date End Date Komal Schaffer MD [address] [place] [address] PCP - General Internal Medicine 01/02/23 Komal Schaffer MD [address] [place] [address] PCP - ACO Reach 01/12/23 Anastasia Rayo LPN 11/08/24 Certified Peer Specialist Relationship Specialty Start Date End Date Komal Schaffer MD [address] [place] [address] PCP - General Internal Medicine 01/02/23 Komal Schaffer MD [address] [place] [address] PCP - ACO Reach 01/12/23 Anastasia Rayo LPN 11/08/24 Certified Peer Specialist Relationship Specialty Start Date End Date Komal Schaffer MD [address] [place] [address] PCP - General 05/18/23 Certified Peer Specialist Relationship Specialty Start Date End Date Komal Schaffer MD [address] [place] [address] PCP - General Internal Medicine 01/02/23 Komal Schaffer MD [address] [place] [address] PCP - ACO Reach 01/12/23 Anastasia Rayo [...] Other Provider Active Start: February 13, 2025 Certified Peer Specialist Relationship Specialty Start Date End Date Komal Schaffer MD [address] [place] [address] PCP - General Internal Medicine 01/02/23 Komal Schaffer MD [address] [place] [address] PCP - ACO Reach 01/12/23 Anastasia Rayo LPN [address] [place] [address] 11/08/24 Certified Peer Specialist Relationship Specialty Start Date End Date Komal Schaffer MD [address] [place] [address] PCP - General Internal Medicine 01/02/23 Komal Schaffer MD [address] [place] [address] PCP - ACO Reach 01/12/23 Anastasia Rayo LPN [address] [place] [address] 11/08/24 Certified Peer Specialist Relationship Specialty Start Date End Date Komal Schaffer MD [address] [place] [address] PCP - General Internal Medicine 01/02/23 Komal Schaffer MD [address] [place] [address] PCP - ACO Reach 01/12/23 Anastasia Rayo LPN [address] [place] [address] 11/08/24 Certified Peer Specialist Relationship Specialty Start Date End Date Komal Schaffer MD [address] [place] [address] PCP - General Internal Medicine 01/02/23 Komal Schaffer MD [address] [place] [address] PCP - ACO Reach 01/12/23 Anastasia Rayo LPN [address] [place] [address] 11/08/24 Team Status: Inactive Member Role Status Dates Komal Schaffer II MD Primary Care Provider Active Start: March 18, 2025 End: March 18, 2025 Gucci Jacques MD Attending Provider Active Star t: March 18, 2025 End: March 18, 2025 Certified Peer Specialist Relationship Specialty Start Date End Date Komal Schaffer MD [address] [place] [address] PCP - General Internal Medicine 01/02/23 Komal Schaffer MD [address] [place] [address] PCP - ACO Reach 01/12/23 Anastasia Rayo LPN [address] [place] [address] 11/08/24 Certified Peer Specialist Relationship Specialty Start Date End Date Komal Schaffer MD [address] [place] [address] PCP - General Internal Medicine 01/02/23 Komal Schaffer MD [address] [place] [address] PCP - ACO Reach 01/12/23 Anastasia Rayo LPN [address] [place] [address] 11/08/24 Certified Peer Specialist Relationship Specialty Start Date End Date Komal Schaffer MD [address] [place] [address] PCP - General Internal Medicine 01/02/23 Komal Schaffer MD [address] [place] [address] PCP - ACO Reach 01/12/23 Anastasia Rayo LPN [address] [place] [address] 11/08/24 Team Status: Inactive Member Role Status Dates Komal Schaffer II MD Primary Care Provider Active Start: May 05, 2025 End: May 05, 2025 Stanley Saunders DO Attending Provider Active Start: May 05, 2025 End: May 05, 2025 Certified Peer Specialist Relationship Specialty Start Date End Date Komal Schaffer MD [address] [address] PCP - General Internal Medicine 01/02/23 Komal Schaffer MD [address] [address] PCP - ACO Reach 01/12/23 Anastasia Rayo LPN [address] [address] 11/08/24 Source Comments (unrecognize d section and content) In the event this informatio n is protected by the Federal Confidentiality of Alcohol and Drug Abuse Patient Records regulations: The Federal rules restrict any use of the information to criminally investigate or prosecute any alcohol or drug abuse patient.[facility] the event this information is protected by the Federal Confidentiality of Alcohol and Drug Abuse Patient Records regulations: The Federal rules restrict any use of the information to criminally investigate or prosecute any alcohol or drug abuse patient.[facility] Reason for Visit (unrecogniz ed section and content) Reason Comments Bladder Cancer Specialty Diagnoses / Procedures Referred By Bo kaufman Referred To Contact Diagnoses Fever, unspecified Fever, immunocompromised patient Honorio Vuong MD [address] [place] [address] [facility] [address] [place] [address] Referral ID Status Reason Start Date Expiration Date Visits Re quested Visits Authorized [id number] 1 1 Reason Comments Follow-up 1yr Specialty Diagnoses / Procedures Referred By Bo kaufman Referred To Contact Diagnoses Paroxysmal atrial fibrillation (CMS/HCC) Procedures ECG 12 Lead Baltazar Hoover, [address] [facility] [address] [place] [address] Referral ID Status Reason Start Date Expiration Date V isits Requested Visits Authorized [id number] Authorized 09/20/2023 09/19/2024 1 1 Specialty Diagnoses / Procedures Referred By Bo kaufman Referred To Contact Physical Therapy Diagnoses Myasthenia gravis without (acute) exacerbation (CMS/HCC) Procedures GA PHYSICAL THERAPY EVALUATION LOW COMPLEX 20 MINS Stanley Saunders MD [address] [place] [address] Darinel Lobo, PT [address] [facility] [address] [place] [address] Referral ID Status Reason Start Date Expiration Date V isits Requested Visits Authorized [id number] Authorized 09/01/2023 02/28/2024 30 30 Reason Comments [...] Procedures ECG 12 Lead Deshaun Leyvana Judith, [employer] [address] [facility] [address], [address] [address] Phone: tel: fax: Referral ID Status Reason Start Date Expiration Date V [employer] Requested Visits Authorized [id number] Authorized 10/09/2024 10/09/2025 1 1 Reason Comments [...] Procedures Follow Up In Cardiology Willy Leyva, [employer] MA[employer]GER[employer] [address] [facility] [address], [address] [address] Phone: tel: fax: Referral ID Status Reason Start Date Expiration Date V isits Requested Visits Authorized [id number] Authorized 11/04/2024 11/04/2025 1 1 Reason Comments [...] BE BASED ON THE PRIMARY CLINICAL RECORDS. [employer] provides no warranty or guarantee of the accuracy or completeness of information in this document.
[2025-06-06] MEDS: MORPHINE SULFATE 4 MG/ML VIAL IV ×2 (16:03→17:50)
[2025-06-06] MEDS: ORPHENADRINE 60 MG/2 ML VIAL IV (16:03)
--- NOTE | 2025-06-06 16:32 | XR_ITS ---
The [address] [address] Patient Name: TAURUS GARCIA MRN: [id number] date: 1945 Sex: M Assigned Patient Location: ED.MAIN Current Patient Location: ED.MAIN Accession/Order Number: [id number] Exam Date: 06/06/2025 16:25 Report Date: 06/06/2025 17:03 At the request of: RUTH BURNS MD Procedure: XR lumbar spine 2-3V 3 views of lumbar spine INDICATION: Atraumatic pain COMPARISON: 02/24/2025 FINDINGS: Diffuse osteopenia. Levocurvature. Lumbar vertebral heights are otherwise maintained. Moderate severe multilevel intervertebral space narrowing throughout the lumbar spine. Severe facet arthropathy greatest lumbosacral junction and moderate severe facet arthropathy identified elsewhere. No findings of acute compression fracture or traumatic malalignment XR/XR lumbar spine 2-3V IMPRESSION: Multilevel moderate severe degenerative change. Impression dictated by: Julian Bustos M.D. 06/06/2025 5:03 PM Dictation Location: [place] [address] Electronically authenticated by: [id number] Y Date: 06/06/2025 17:03
--- NOTE | 2025-06-06 18:37 | CT_ITS ---
The [address] [address] Patient Name: TAURUS GARCIA MRN: [id number] date: 1945 Sex: M Assigned Patient Location: ED.MAIN Current Patient Location: ED.MAIN Accession/Order Number: [id number] Exam Date: 06/06/2025 18:52 Report Date: 06/06/2025 19:40 At the request of: RUTH BURNS MD Procedure: CT lumbar spine wo con CT lumbar spine without contrast CLINICAL HISTORY: Atraumatic back pain COMPARISON: MRI 02/24/2025, x-rays 03/06/2025 TECHNIQUE: Contiguous axial unenhanced images were obtained through lumbar spine with coronal sagittal and 3-D reconstructions.. This CT exam was performed using one or more following dose reduction techniques: Automated exposure control, adjustment of the mA and/or kV according to patient size, or use of iterative reconstruction technique. FINDINGS: FINDINGS: Diffuse osteopenia. Moderate severe multilevel degenerative changes. Multilevel canal and neural foraminal narrowing better assessed on recent MRI. Since the MRI, there is evidence of endplate destruction at L3-L4 predominantly right-sided. There is severe right-sided foraminal narrowing at this level possibly related to phlegmonous change. Otherwise negative acute fracture malalignment. Levocurvature. Degenerative changes both sacroiliac joints. Tiny locule of gas left sacroiliac joint noted there may be an adjacent areas of phlegmon within the adjacent sacral soft tissues. 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 There is complete opacification right foramen at this level. Severe canal narrowing notably L3-L4 and L4-5. Gas and questionable osseous erosions involving the left sacroiliac joint noted as well could raise possibility for left-sided septic arthritis Impression dictated by: Julian Bustos M.D. 06/06/2025 7:40 PM Dictation Location: [place] [address] Electronically authenticated by: [id number] Y Date: 06/06/2025 19:40
[2025-06-06 18:40] VITALS: BP 150/80; PULSE 74; O2SAT 94
[2025-06-06 19:07] LABS: Hematocrit 42.3 % (42.0-54.0); Hemoglobin 13.5 g/dL (14.0-18.0); Immature Granulocytes Abs Auto 0.09 10^3/uL (0.00-0.03); Immature Granulocytes Pct Auto 1.1 % (0.0-0.5); Lymphocytes Absolute Auto 1.3 10^3/uL (1.2-3.8); Mean Corpuscular HGB Conc 31.9 g/dL (29.9-35.2); Mean Corpuscular Hemoglobin 29.8 pg (25.9-34.0); Mean Corpuscular Volume 93.4 fL (80.0-94.0); Platelet Count 149 10^3/uL (150-450); Red Blood Count 4.53 10^6/uL (4.70-6.10); White Blood Count 8.3 10^3/uL (4.0-11.0)
[2025-06-06 19:24] LABS: Anion Gap 9.4; Blood Urea Nitrogen 23.0 mg/dL (7.0-18.0); Calcium 8.5 mg/dL (8.5-10.1); Carbon Dioxide 29.7 mmol/L (21.0-32.0); Chloride 109 mmol/L (98-107); Estimated GFR (African America >60 (>=60 mL/min/1.73m^2); Estimated GFR (Non-African Ame >60 (>=60 mL/min/1.73m^2); Glucose 102 mg/dL (74-106); Potassium 4.1 mmol/L (3.5-5.1); Sodium 144 mmol/L (136-145)
[2025-06-06] MEDS: VANCOMYCIN HCL 1,000 MG in 0.9 % SODIUM CHLORIDE 250 ML 250 MG IV (20:20)
[2025-06-06] MEDS: PIPERACILLIN SODIUM/TAZOBACTAM 3.375 GM in 0.9 % SODIUM CHLORIDE 50 ML IV (21:33)
[2025-06-06] MEDS: DEXAMETHASONE SOD PHOS 10 MG/ML VIAL IV (21:33)
[2025-06-06 23:24] VITALS: BP 160/80; PULSE 67; O2SAT 94
== END 2025-06-07 00:06 | disposition short-term general hospital (02) ==
PROVIDERS: Emergency Medicine; Emergency Provider Internal Medicine; PCP Internal Medicine
DX: M46.26 Osteomyelitis of vertebra, lumbar region (principal); M54.50 Low back pain, unspecified
CPT/HCPCS: 36415; 72100; 72131; 76376; 80048; 81001; 85025; 96365; 96367; 96375; 96376; 99285; J1100; J2270; J2360; J2543; J3373